=== PATIENT | female | born 1940 | race Caucasian/White ===

== ENCOUNTER → 2022-05-07 01:40 | Outpatient (CLI) | payer MEDICARE, SELFPAY ==
--- NOTE | 2022-05-07 | DI.CT_ITS ---
Exam(s) CT CHEST WO EXAM: CT CHEST WO CLINICAL HISTORY: SCREENING FOR LUNG CA,M SMOKER, F17.200 TECHNIQUE: Imaging Protocol: Axial computed tomography images with coronal and sagittal reformatted images were created and reviewed COMPARISON: No exams were available for comparison FINDINGS: Tracheobronchial tree: Patent where visualized. Pulmonary parenchyma: No consolidation or dominant measurable mass. Parenchymal scarring is seen in t he lung bases bilaterally. Lung Nodules: None. Mediastinum and [place]: No dominant adenopathy or fluid collection. The esophagus is unremarkable. Thyroid gland: Unremarkable. Lymph nodes: Unremarkable. Pleura: No effusion or pneumothorax. Heart: The heart is not dilated. There is moderate coronary artery calcification. Calcification of b oth the mitral and aortic valves are noted. No pericardial effusion. Aorta: Thoracic aorta non-dilated.Atherosclerosis is present. Upper abdomen: Unremarkable. Soft Tissues: Mild bilateral gynecomastia. Bones: Within normal limits. There are old compression deformities at L1 and T9. Findings suggesting vertebroplasty are noted. Sternal wires are in place. IMPRESSION: No pulmonary nodules. Lung RADS Cat 1 - Negative: No nodules and definitely benign nodules Lung-RADS 1.0 CATEGORIES: Category 0 - Prior chest CT exam(s) being located for comparison. Category 1 - Annual screening in 12 months. No nodules or definitely benign nodules. Category 2 - Annual screening in 12 months. Benign appearance. Nodules with low likelihood of becomin g active cancer. Category 3 - 6-month follow-up. Probably benign. Short-term follow-up suggested. Nodules with low lik elihood of becoming active cancer. Category 4A - 3-month follow-up and CT/PET if >8 mm in size. Suspicious finding. Findings which requi re additional testing. Category 4B - Findings which require additional testing and tissue sampling. Suspicious finding. Category 4X - Category 3 or 4 nodules with additional features or imaging findings that increases the suspicion of malignancy. Modifier S- Potentially clinically significant finding. (Non lung cancer) RADIATION DOSE DELIVERED: 77.67mGy.cm Total DLP 1.84mGyCTDIvol 77.67mGy.cm Total DLP DATA REPOSITORY: All CT scans at this facility are submitted to the National Radiology Data Registry (NRDR) Dose Index Registry (DIR) with the [employer] (ACR). RADIATION OPTIMIZATION: All CT scans at this facility use at least one of these dose optimization te chniques: automated exposure control; mA and/or kV adjustment per patient size (includes targeted exa ms where dose is matched to clinical indication); or iterative reconstruction.
== END ==
PROVIDERS: PCP Family Medicine; Visit Provider Family Medicine
DX: Z12.2 Encounter for screening for malignant neoplasm of respiratory organs (principal); F17.200 Nicotine dependence, unspecified, uncomplicated
CPT/HCPCS: 71250

== ENCOUNTER 2022-05-15 08:07 | Emergency (ER) | payer MEDICARE, SELFPAY ==
[2022-05-15] VITALS (17 sets, daily range): BP systolic 111–125; BP diastolic 69–100; PULSE 100–134; RESP 13–26; TEMP 36; O2SAT 86–96
--- NOTE | 2022-05-15 08:00 | RT.EKG_ITS ---
APPROVED REPORT Exam: Resting ECG Reason for Exam: leg pain/no pulse Patient Location: E HR:114 bpm ECG Measurements Heart Rate 114 AXIS NH [id number] P [id number] QRSd 120 QRS -47 QT 371 T 98 QTc 512 Conclusion Atrial fibrillation...V-rate 89-123, irreg A-activity Incomplete left bundle branch block...QRSd>110mS, terminal axis(-90,-1) LVH with secondary repolarization abnormality...multi-LVH criteria, abnrm ST-T a fib, left axis
--- NOTE | 2022-05-15 08:15 | DI.RAD_ITS ---
Exam(s) XR PORTABLE CHEST AP EXAM: XR PORTABLE CHEST AP CLINICAL HISTORY: afib, pulseless extremity TECHNIQUE: 2D digital imaging was performed. COMPARISON: CT CT CHEST WO from 05/07/[address] ABD AORTA CTA W RUNOFF from 05/15/2022 FINDINGS: The heart is enlarged. Sternal wires are noted. The aorta is normal in diameter and shows calcifica tion. Patient is status post CABG. There is some vascular prominence and peribronchial thickening, this appears stable when compared with prior chest CT. There is an element of underlying pulmonary fi brosis, however superimposed mild pulmonary edema is not excluded. No focal infiltrate or effusion. IMPRESSION: Cardiomegaly and pulmonary fibrosis. Mild pulmonary edema not excluded. DATA REPOSITORY: RADIATION DOSE DELIVERED:
--- NOTE | 2022-05-15 08:15 | DI.CT_ITS ---
Exam(s) CT ABD AORTA CTA W RUNOFF EXAM: CT ABD AORTA CTA W RUNOFF CLINICAL HISTORY: Pulseless left lower leg, back pain. TECHNIQUE: Imaging Protocol: Axial CT angiography was performed with multi-slice acquisition and mu lti-planar and/or 3D reconstructions. CONTRAST MATERIAL: Intravenous: Omnipaque 350 Contrast volume:130 ml contrast route:IV - Oral: no COMPARISON: CT CT CHEST WO from 05/07/2022 FINDINGS: Vascular Structures: There is left atrial and left ventricular enlargement. Mitral valve calcificati on is seen. Abdomen: Celiac [place]/SMA: No evidence of stenosis. Renal Arteries: No evidence of stenosis. : Aorta: Irregular atherosclerotic calcification and plaque. No significant luminal narrowing. No ane urysm. No dissection. Pelvis: Iliac Arteries: Significant atherosclerotic plaque with mild narrowing. Lower extremities: Right common femoral and femoral arteries: Mild stenosis.Knee Trifurcation: Irregular plaque with mi ld stenosis. Calf: Irregular atherosclerotic plaque with mild stenosis. Left: occlusion at the proximal common femoral artery to the bifurcation, over a 5-6 centimeter lengt h. Reconstituted distally but with reduced diameter throughout the extent of the femoral artery as we ll as popliteal artery secondary to irregular calcific and non is calcific atherosclerotic plaque. S ignificant narrowing is also seen of the arteries of the calf with very little flow distally.. Soft Tissues: Lung bases: Right-sided basilar pleural thickening. Emphysematous changes. Liver: Normal density. No measurable mass. Gallbladder and biliary tract: No radiodense calculus or dilation. Pancreas: Normal density, no abnormal calcifications or inflammatory process. Spleen: Normal. Kidneys: Normal size, contour and axis. No radiodense stones or obstructive uropathy. No masses seen. Cyst upper pole right kidney. Adrenal glands: No masses seen. Bladder: Clpb-ut-hxvokzqo wall thickening. Bowel: No obstruction or bowel wall thickening. Peritoneal cavity: No ascites, collection or mesenteric inflammatory response. Prostate: Mildly enlar ged with calcifications. Bones: High-density material within the T9 vertebral body, partially included in the field of view se condary to vertebroplasty. Severe compression fracture of L1 with high-density material consistent w ith prior vertebroplasty. Moderate compression, proximally 50 percent of the L4 vertebral body. 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 Severe atherosclerotic changes involving the left lower extremity vessels with very little fl ow seen distal to the trifurcation. Results of this exam have been verbally communicated with emergency department provider. RADIATION DOSE DELIVERED: 1,519.67mGy.cm Total DLP DATA REPOSITORY: All CT scans at this facility are submitted to the National Radiology Data Registry (NRDR) Dose Index Registry (DIR) with the [employer] (ACR). RADIATION OPTIMIZATION: All CT scans at this facility use at least one of these dose optimization te chniques: automated exposure control; mA and/or kV adjustment per patient size (includes targeted exa ms where dose is matched to clinical indication); or iterative reconstruction.
[2022-05-15] MEDS: fentaNYL 100 MCG/2 ML VIAL 50 MCG IVP (08:23)
[2022-05-15] MEDS: Normal Saline 1,000 ML 1000 ML IV (08:24)
--- NOTE | 2022-05-15 08:24 | W.ED.GENAD ---
Discharge Plan Disposition Patient Disposition: [facility] Condition: Serious Discharge Details Clinical Impression: Femoral artery occlusion, left, A-fib Primary Care Provider: Bobby Das ED Provider: Christopher Carter Home Meds and New Rx's Prescriptions: No Action tamsulosin 0.4 mg capsule PO 1XD Label Comments: TAKE ONE CAPSULE BY MOUTH AT BEDTIME rosuvastatin 40 mg tablet PO 1XD Label Comments: TAKE ONE TABLET BY MOUTH EVERY DAY Medical Decision Making This is a 81-year-old gentleman with a history of mitral valve repair, hyperlipidemia, BPH presenting for sudden severe left leg pain that began around 630 this morning. Examination is most consistent and concerning for thrombus, ischemic leg, but concern for dissection as well. Case was immediately discussed with Dr. Conte. Will initiate cardiac work-up including coags, give IV fluid as well as 50 fentanyl, obtain CTA of his thorax, abdomen, pelvis, left lower extremity. Patient is in A. fib, no history of such. Appears otherwise hemodynamically stable. His later tells me that he did have a right arm embolism back in 2000 soon after his mitral valve repair. The CT reveals Severe atherosclerotic changes with occlusion of the left common femoral artery over 5-6 centimeter length. Severe atherosclerotic changes involving the left lower extremity vessels with very little flow seen distal to the trifurcation. We will initiate a heparin bolus and drip. Images were pushed to [facility] and I received a call back regarding a transfer at [phone] stating that [facility] is at capacity but they could consult I then spoke with [facility] at [phone], they are at capacity and cannot accept transfer, will not consult as there is already a consult at [facility] I was then told [facility] is also at capacity. I received a call from vascular surgery at [phone], Dr. Bermudez, who agrees that the patient needs emergent intervention, thrombectomy, and will be happy to care for the patient if bed availability is present. He believes the heparin is appropriate and does not recommend any additional medication. I then received a call back from the [facility] transfer line at [phone] stating that patient could in fact be transferred to their facility ER to ER This plan was discussed both with patient as well as his family. He did not require any additional fentanyl. At time of transfer his leg is still pulseless. This documentation was generated using [employer] system, please disregard any oddities of phrase or misspellings. Medical Records Medical records reviewed: Yes I reviewed the patient's medical records. Imaging Data Radiologic Study: Attestation: I personally reviewed and interpreted this imaging study as follows: Imaging: CT Scan Radiologist's impression: Exam(s) CT ABD AORTA CTA W RUNOFF EXAM: CT ABD AORTA CTA W RUNOFF CLINICAL HISTORY: Pulseless left lower leg, back pain. TECHNIQUE: Imaging Protocol: Axial CT angiography was performed with multi-slice acquisition and multi-planar and/or 3D reconstructions. CONTRAST MATERIAL: Intravenous: Omnipaque 350 Contrast volume:130 ml contrast route:IV - Oral: no COMPARISON: CT CT CHEST WO from 05/07/2022 FINDINGS: Vascular Structures: There is left atrial and left ventricular enlargement. Mitral valve calcification is seen. Abdomen: Celiac [place]/SMA: No evidence of stenosis. Renal Arteries: No evidence of stenosis. : Aorta: Irregular atherosclerotic calcification and plaque. No significant luminal narrowing. No aneurysm. No dissection. Pelvis: Iliac Arteries: Significant atherosclerotic plaque with mild narrowing. Lower extremities: Right common femoral and femoral arteries: Mild stenosis.Knee Trifurcation: Irregular plaque with mild stenosis. Calf: Irregular atherosclerotic plaque with mild stenosis. Left: occlusion at the proximal common femoral artery to the bifurcation, over a 5-6 centimeter length. Reconstituted distally but with reduced diameter throughout the extent of the femoral artery as well as popliteal artery secondary to irregular calcific and non is calcific atherosclerotic plaque. Significant narrowing is also seen of the arteries of the calf with very little flow distally.. Soft Tissues: Lung bases: Right-sided basilar pleural thickening. Emphysematous changes. Liver: Normal density. No measurable mass. Gallbladder and biliary tract: No radiodense calculus or dilation. Pancreas: Normal density, no abnormal calcifications or inflammatory process. Spleen: Normal. Kidneys: Normal size, contour and axis. No radiodense stones or obstructive uropathy. No masses seen. Cyst upper pole right kidney. Adrenal glands: No masses seen. Bladder: Vdly-zq-xiacuiml wall thickening. Bowel: No obstruction or bowel wall thickening. Peritoneal cavity: No ascites, collection or mesenteric inflammatory response. Prostate: Mildly enlarged with calcifications. Bones: High-density material within the T9 vertebral body, partially included in the field of view secondary to vertebroplasty. Severe compression fracture of L1 with high-density material consistent with prior vertebroplasty. Moderate compression, proximally 50 percent of the L4 vertebral body. 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 Severe atherosclerotic changes involving the left lower extremity vessels with very little flow seen distal to the trifurcation. Results of this exam have been verbally communicated with emergency department provider. Radiologic Study #2: Attestation: I personally reviewed and interpreted this imaging study as follows: Imaging: X-Ray Radiologist's impression: Chest, nothing acute Lab Data Lab results reviewed: Yes I reviewed the patient's lab results. Labs: Laboratory Tests Range/Units 05/15/22 05/15/22 05/15/22 08:20 08:20 08:20 WBC (4.4-10.8) 10^3/uL 7.69 RBC (3.93-5.22) 10^6/uL 4.52 Hgb (11.2-15.7) g/dL 14.5 Hct (36.0-46.0) % 43.3 MCV (80-95) fL 96 H MCH (27.0-33.0) pg 32.1 MCHC (32.0-36.0) % 33.5 RDW (11.7-14.6) % 12.9 Plt Count (130-400) 10^3/uL 197 MPV (8.0-11.0) fL 10.1 Immature Gran % 0.5 Neutrophils % 58.9 Lymphocytes % 27.8 Monocytes % 9.8 Eosinophils % 2.3 Basophils % 0.7 Nucleated RBC % (0.0-0.3) % 0.0 Absolute Neutrophils (1.2-6.7) 10^3/uL 4.53 Absolute Lymphocytes (1.2-3.4) 10^3/uL 2.14 Absolute Monocytes (0.1-0.8) 10^3/uL 0.75 Absolute Eosinophils (0.0-0.7) 10^3/uL 0.18 Absolute Basophils (0.0-0.2) 10^3/uL 0.05 PT (9.3-11.0) sec 10.4 INR (0.9-1.1) 1.0 APTT (21.0-27.5) sec 22.8 D-Dimer (<500) ng/mlFEU 1383 H Sodium (136-145) mmol/L 140 Potassium (3.5-5.1) mmol/L 3.9 Chloride (98-107) mmol/L 103 Carbon Dioxide (21.0-32.0) mmol/L 23.5 Anion Gap (3-11) mmol/L 13.5 H BUN (7-18) mg/dL 21 H Creatinine (0.55-1.02) mg/dL 1.0 Estimated GFR/1.73 m2 (mL/min/1.73m2) 53.48 Glucose (74-106) mg/dL 210 H Calcium (8.5-10.1) mg/dL 8.6 Magnesium (1.8-2.4) mg/dL 1.9 Total Bilirubin (0.2-1.0) mg/dL 0.8 AST (15-37) U/L 16 ALT (14-59) U/L 26 Alkaline Phosphatase (46-116) U/L 85 Troponin I (<or=60) ng/L < 50 Total Protein (6.4-8.2) g/dL 7.7 Albumin (3.4-5.0) g/dL 3.9 COVID-19 Source Range/Units 05/15/22 09:20 WBC (4.4-10.8) 10^3/uL RBC (3.93-5.22) 10^6/uL Hgb (11.2-15.7) g/dL Hct (36.0-46.0) % MCV (80-95) fL MCH (27.0-33.0) pg MCHC (32.0-36.0) % RDW (11.7-14.6) % Plt Count (130-400) 10^3/uL MPV (8.0-11.0) fL Immature Gran % Neutrophils % Lymphocytes % Monocytes % Eosinophils % Basophils % Nucleated RBC % (0.0-0.3) % Absolute Neutrophils (1.2-6.7) 10^3/uL Absolute Lymphocytes (1.2-3.4) 10^3/uL Absolute Monocytes (0.1-0.8) 10^3/uL Absolute Eosinophils (0.0-0.7) 10^3/uL Absolute Basophils (0.0-0.2) 10^3/uL PT (9.3-11.0) sec INR (0.9-1.1) APTT (21.0-27.5) sec D-Dimer (<500) ng/mlFEU Sodium (136-145) mmol/L Potassium (3.5-5.1) mmol/L Chloride (98-107) mmol/L Carbon Dioxide (21.0-32.0) mmol/L Anion Gap (3-11) mmol/L BUN (7-18) mg/dL Creatinine (0.55-1.02) mg/dL Estimated GFR/1.73 m2 (mL/min/1.73m2) Glucose (74-106) mg/dL Calcium (8.5-10.1) mg/dL Magnesium (1.8-2.4) mg/dL Total Bilirubin (0.2-1.0) mg/dL AST (15-37) U/L ALT (14-59) U/L Alkaline Phosphatase (46-116) U/L Troponin I (<or=60) ng/L Total Protein (6.4-8.2) g/dL Albumin (3.4-5.0) g/dL COVID-19 Source Nasal/Nares ECG Data Attestation: I personally reviewed and interpreted this ECG (s) as follows: Interpretation: Please see official report by Geneva Strickland fib, ventricular rate of 114, incomplete left bundle branch block. HPI General Mode of arrival: EMS. Date/Time Provider Initiated Documentation: 05/15/22 08:16. Limitations to Documentation: no limitations. Information obtained by: patient and EMS. HPI Narrative: This is a 81-year-old gentleman, past medical history of hyperlipidemia, BPH, mitral valve repair, presenting the ER via EMS for severe or sudden left leg pain that began suddenly around 630 this morning while in bed. He denies any trauma. Patient describes the sensation as sharp, he felt what he describes as a sensation of needles go down his groin and now complains of pain in his entire lower leg, decreased sensation below the knee, and lower back pain. He denies recent illness, headache, chest pain, shortness of breath, rapid heart rate, abdominal pain, nausea, vomiting, change in bowel or bladder function, history of DVT, PE, dissection, anticoagulation. Patient declined any medications from EMS in route to the ER. On monitor it appears as though he is in A. fib, denies history of A. fib. Related Data Home Medications Medication Instructions Recorded Confirmed rosuvastatin 40 mg tablet tab PO 1XD 05/15/22 tamsulosin 0.4 mg capsule cap PO 1XD 05/15/22 Allergies Allergy/AdvReac Type Severity Reaction Status Date / Time No Known Allergies Allergy Unverified 05/15/22 08:19 General Stated Complaint: Vascular MÓNICA: 2 Review of Systems Constitutional Constitutional: Denies fatigue, Denies fever(s), Denies headache(s) and Reports weakness Eyes Eyes: Denies change in vision ENT Ears, Nose, Mouth, and Throat: Denies headache(s) and Denies neck pain Cardiovascular Cardiovascular: Denies chest pain and Denies dyspnea Respiratory Respiratory: Denies cough and Denies dyspnea Gastrointestinal Gastrointestinal: Denies abdominal pain, Denies nausea and Denies vomiting Musculoskeletal Musculoskeletal: Reports back pain, Denies neck pain, Reports numbness, Denies stiffness and Denies tingling Integumentary/Breasts Skin/Breast: Denies rash Neurologic Neurologic: Denies headache(s), Reports numbness, Denies tingling and Reports weakness Endocrine Endocrine: Denies fatigue Hematologic/Lymphatic Hematologic/Lymphatic: Denies easy bleeding and Denies easy bruising PFSH All Active Problems (Updated 05/15/22 @ 10:17 by JOSEE Kent) Femoral artery occlusion, left (Acute) A-fib (Chronic) Social History Smoking/Tobacco Use Status: Current every day Tobacco Type: cigarettes Tobacco: How many years used: 62 Smoking risk assessment performed?: Yes Alcohol Intake: current Alcohol Intake frequency: 3 or more drinks per day Alcohol type: beer Drug use: Never Substance use type: does not use Do you feel safe at home: Yes Do you feel safe in your relationship?: Yes Exam Const General: cooperative, healthy appearing and in distress Orientation: alert, awake and oriented x3 HENMT Head: normal to inspection, normocephalic and atraumatic Face and sinus: normal facial exam Mouth: moist mucous membranes Eyes General: appearance normal, both eyes and all related structures Conjunctivae: conjunctivae normal Neck Neck: normal visual inspection, full ROM, trachea midline and supple Resp Effort & Inspection: normal respiratory effort and able to speak in complete sentences Auscultation: clear to auscultation bilaterally Cardio Rate: tachycardic (108) Rhythm: abnormal rhythm irregularly irregular GI Inspection: normal to inspection Palpation: soft, not firm, no guarding, no pulsatile masses and nontender Auscultation: normal bowel sounds Back/Spine/Pelvis Back: no CVA tenderness and back tenderness (Mild lumbar region) Skin General skin exam: no rashes or lesions noted Neuro General: patient alert, patient awake, patient oriented x3, moves all extremities and no focal motor deficits Cognition: normal cognition Speech: speech normal Other: Decreased sensation of the left foot Extrem Other: Bilateral upper extremities and right lower extremity unremarkable. Left lower extremity without pedal or popliteal pulse both by palpation and Doppler. I am able to appreciate a very faint-week left femoral pulse. The entire left leg feels slightly cool to the touch when compared to the right leg and appears dusky in nature. Poor capillary refill. There is diffuse discomfort of the entire left lower leg. Skin is intact. Psych Appearance: grossly normal Mental Status: mental status grossly normal Course Vital Signs Vital signs: Vital Signs Temperature 36.0 C L 05/15/22 08:02 Pulse 118 H 05/15/22 08:02 Respiratory Rate 26 H 05/15/22 08:02 Blood Pressure 118/85 05/15/22 08:02 Pulse Oximetry 96 05/15/22 08:02 Temperature 36.0 C L 05/15/22 08:02 Temperature Source Tympanic 05/15/22 08:02 Pulse 118 H 05/15/22 08:02 Respiratory Rate 26 H 05/15/22 08:02 Blood Pressure 118/85 05/15/22 08:02 Blood Pressure Position Supine 05/15/22 08:02 Pulse Oximetry 96 05/15/22 08:02 Oxygen Delivery Method Room Air 05/15/22 08:02 Oxygen Flow Rate 0 05/15/22 08:02 Pain Level 10 05/15/22 08:02 Critical Care Time Critical Care Time Critical Care Time: Yes Total Critical Care Time: 45 Attestation: Upon my evaluation, this patient had a high probability of clinically significant, life-threatening deterioration due to their current medical conditions, which required my direct attention, intervention, and personal management. I have personally provided greater than 30 minutes of critical care time exclusive of the time spend on separately billable procedures. Time includes obtaining a history, examining the patient, pulse oximetry, review of laboratory data, radiology results, discussion with consultants, arranging urgent treatment with development of a management plan, evaluation of patient's response to treatment, and monitoring for potential decompensation. Interventions were performed as documented above.
[2022-05-15 08:39] LABS: Abs Immature Grans 0.04 10^3/uL (0.0-0.06); Absolute Basophil Count 0.05 10^3/uL (0.0-0.2); Absolute Eosinophil Count 0.18 10^3/uL (0.0-0.7); Absolute Lymphocyte Count 2.14 10^3/uL (1.2-3.4); Absolute Monocyte Count 0.75 10^3/uL (0.1-0.8); Absolute Neutrophil Count 4.53 10^3/uL (1.2-6.7); Basophils % 0.7; Eosinophils % 2.3; HCT 43.3 % (36.0-46.0); HGB 14.5 g/dL (11.2-15.7); Immature Grans % 0.5; Lymphocytes % 27.8; MCH 32.1 pg (27.0-33.0); MCHC 33.5 % (32.0-36.0); MCV 96 fL (80-95); MPV 10.1 fL (8.0-11.0); Monocytes % 9.8; Neutrophils % 58.9; Platelet Count 197 10^3/uL (130-400); RBC 4.52 10^6/uL (3.93-5.22); RDW 12.9 % (11.7-14.6); RDW-SD 45.7 fL; WBC 7.69 10^3/uL (4.4-10.8)
[2022-05-15 08:51] LABS: PTT Activated 22.8 sec (21.0-27.5); Prothrombin Time 10.4 sec (9.3-11.0)
[2022-05-15 08:59] LABS: ALT 26 U/L (14-59); AST 16 U/L (15-37); Albumin 3.9 g/dL (3.4-5.0); Alkaline Phosphatase 85 U/L (46-116); Anion Gap 13.5 mmol/L (3-11); BUN 21 mg/dL (7-18); Bilirubin, Total 0.8 mg/dL (0.2-1.0); CO2 23.5 mmol/L (21.0-32.0); Calcium 8.6 mg/dL (8.5-10.1); Chloride 103 mmol/L (98-107); Estimated GFR 53.48 (mL/min/1.73m2); Glucose 210 mg/dL (74-106); Magnesium 1.9 mg/dL (1.8-2.4); Potassium 3.9 mmol/L (3.5-5.1); Sodium 140 mmol/L (136-145); Total Protein 7.7 g/dL (6.4-8.2); Troponin I < 50 ng/L (<or=60)
[2022-05-15] MEDS: Omnipaque 350 MG/ML 100 ML BTL IJ (08:59)
[2022-05-15] MEDS: Normal Saline Flush 10 ML SYR IVP (09:01)
[2022-05-15 09:16] LABS: D-Dimer 1383 ng/mlFEU (<500)
[2022-05-15 09:29] LABS: Source Nasal/Nares
--- NOTE | 2022-05-15 10:08 | NUR.NOTE ---
Nursing Note: Medications confirmed, system will not allow nurse to click confirmation.
[2022-05-15 10:23] LABS: COVID-19 PCR Negative (Negative)
== END 2022-05-15 10:28 | disposition short-term general hospital (02) ==
PROVIDERS: Emergency Provider Physician Assistant; PCP Family Medicine
DX: I70.292 Other atherosclerosis of native arteries of extremities, left leg (principal); I48.91 Unspecified atrial fibrillation; M54.9 Dorsalgia, unspecified; Z79.899 Other long term (current) drug therapy; Z20.822 Contact with and (suspected) exposure to COVID-19
CPT/HCPCS: 36415; 75635; 80053; 87635; 93005; 96361; 96365; 96375; 96376; 99291; 71045; 83735; 84484; 85025; 85379; 85610; 85730; 93010; J3010; J3490

== ENCOUNTER 2022-06-23 00:03 | Inpatient (IN) | payer MEDICARE, SELFPAY ==
[2022-06-23] VITALS (31 sets, daily range): BP systolic 88–144; BP diastolic 43–78; PULSE 67–98; RESP 10–28; TEMP 36–37; O2SAT 91–100
--- OUTSIDE RECORDS SUMMARY | 2022-06-23 00:16 | XMS_ITS | Encounter Summary ---
:1940 [place] [address] Care Team Providers Name Role Phone Bobby Das MD Primary Care Provider Encounter Details Date Type Department Care Team Description 06/13/2022 Tech Visit Vascular Lab at [facility], [place]ing[place] [address] Social History Tobacco Use Types Packs/Day Years Used Date Former Smoker Cigarettes 0.5 50 Smokeless Tobacco: Never Used Alcohol Use Standard Drinks/Week Comments Yes 42 (1 standard drink = 0.6 oz pure alcoh ol) Sex Assigned at Date Recorded Not on file documented as of this encounter Plan of Treatment Upcoming Encounters Date Type Specialty Care Team Description 07/02/2022 Office Visit Vascular Surgery Jing Ghosh APRN [facility] DR VASCULAR SURGERY [place], [place] [address] (Wo rk) 09/02/2022 Clinical Support Dermatology Thai Lynn MD [facility] DR JENNY BILLY-DERMAT [place], [place] [address] (Wo rk) 09/02/2022 Procedure visit Dermatology Jace Lynn MD [facility] DR JENNY BILLY-DERMAT [place], [place] [address] (Rebekah rojas) 09/05/2022 Appointment Cardiology Trinity Reid MD [facility] DR CARDIOLOGY [place], [place] [address] (Wo rk) 09/05/2022 Office Visit Cardiology Trinity Reid MD [facility] ER CARDIOLOGY [place], [place] [address] (Wo rk) documented as of this encounter Procedures Procedure Name Priority Date/Time Associated Diagnosis Comme nts JOSSELYN, LEGS, MULTIPLE Routine 06/13/2022 7:13 AM Limb ischemia R esults for this LEVELS EDT procedure are i n the results section. documented in this encounter Results JOSSELYN, legs, multiple levels (06/13/2022 7:13 AM EDT) Component Value Ref Test Analysis Performed At [facility] Range Method Time Signature VB Text Department: Vascular Surgery Lab [facility] Report Patient: [id number] (ETTA BAH) CPT: 71529 Referring Physician: FITO SUMMERS ?? 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 Diabetes mellitus: no Findings: Right ?Pressure (mm Hg) ?? JOSSELYN ??Waveform ?? Brachial Artery ?90 ? Common Femoral Artery ?Triphasic ?? Popliteal Artery ? Triphasic ?? Dorsalis Pedis (Ankle) Arter y ?102 ? 1.13 ??Triphasic ?? Posterior Tibial (Ankle) Artery ??110 ? 1.22 ??Triphasic ?? Left ? Pressure (mm Hg) ?? JOSSELYN ??Waveform ?? Brachial Artery ?61 ? Common Femoral Artery ?Triphasic ?? Popliteal Artery ? Triphasic ?? Dorsalis Pedis (Ankle) Arter y ?94 ?1.04 ??Triphasic ?? Posterior Tibial (Ankle) Artery ??104 ? 1.16 ??Triphasic ?? Interpretation: RIGHT: No significant lower extremity arterial o cclusive disease identifiable at rest. Normal ankle/brachial pressure ratios and ankle D oppler waveforms. LEFT: No significant lower e xtremity arterial occlusive disease identifiable at rest. Normal ankle/brachial pressure ratios and ankle Dopple r waveforms. Comparison: ??No previous study in our vascular lab da tabase for comparison. Electronically Signed by: FITO SUMMERS on 2022-06-13 08:00: 25 AM VB Text End of Report [facility]AS[facility] Report Specimen (Source) Anatomical Collection Method Collection Time Re ceived Time Location / / Volume Laterality 06/13/2022 7:13 AM EDT Fito Summers MD VASCULAR ORDERABLES Performing Organization Address City/State/ZIP Code Phon e Number V[facility] documented in this encounter Visit Diagnoses Diagnosis Limb ischemia Unspecified circulatory system disorder documented in this encounter Care Teams Lead Cashier Relationship Specialty Start Date End Date Bobby Das MD PCP - General 10/02/[address] [place] [address] [place] [id number] documented as of this encounter
--- OUTSIDE RECORDS SUMMARY | 2022-06-23 00:16 | XMS_ITS | Encounter Summary ---
:1940 [place] [address] Care Team Providers Name Role Phone Bobby Das MD Primary Care Provider Encounter Details Date Type Department Care Team Description 06/13/2022 Office Visit Vascular Surgery at [facility] Fito Summers MD Limb ischemia [facility] [place] [phone] VASCULAR SURGERY [phone] [place] [id number] (Wo rk) Social History Tobacco Use Types Packs/Day Years Used Date Former Smoker Cigarettes 0.5 50 Smokeless Tobacco: Never Used Alcohol Use Standard Drinks/Week Comments Yes 42 (1 standard drink = 0.6 oz pure alcoh ol) Sex Assigned at Date Recorded Not on file documented as of this encounter Last Filed Vital Signs Vital Sign Reading Time Taken Comments Blood Pressure 90/59 06/13/2022 8:09 AM EDT notifi ed Pulse 96 06/13/2022 8:09 AM EDT Temperature - - Respiratory Rate - - Oxygen Saturation 99% 06/13/2022 8:09 AM EDT Inhaled Oxygen Concentration - - Weight 75.8 kg (167 lb) 06/13/2022 8:09 AM EDT patient reported Height 172.7 cm (5' 8) 06/13/2022 8:09 AM EDT patient reported Body Mass Index 25.39 06/13/2022 8:09 AM EDT documented in this encounter Progress Notes Fito Summers MD - 06/13/2022 8:00 AM EDT Vascular Surgery Follow up Visit CC: Follow up 05/15/22: Left common femoral transverse arteriotomy and primary repair Thromboembolectomy of the right common and external iliac artery Thromboembolectomy of the SFA, profunda, and common femoral artery Reperfusion venous drainage of 250cc Left lower extremity 4 compartment fasciotomies?? Interval history: Mr. Zamora returns for scheduled follow up. In the interim he had a GI bleed requiring admission and transfusion. EGD revealed angiodysplasia which was cauterized. His aspirin was stopped. His plavix and rivaroxaban were maintained. He has done well since. He has no claudication or rest pain. He has some LLE swelling. He had ABIs before this visit. Review of Systems: 10 point review of systems negative except as noted Problem List: Patient Active Problem List Diagnosis ??? Limb ischemia ??? History of basal cell carcinoma ??? Basal cell carcinoma ??? Verruca vulgaris ??? AK (actinic keratosis) ??? GIB (gastrointestinal bleeding) Overview Note: Secondary to 3-4 ASA/day, required admission and blood transfusion ??? MVP (mitral valve prolapse) s/p repair Overview Note: Surgery done at [facility] 2000 ??? Hypertriglyceridemia Overview Note: ??? Adhesive capsulitis of L shoulder ??? Alcohol use Overview Note: Home Medications: Antiplatelet: Plavix Anticoagulant: Rivaroxaban Statin: Crestor Outpatient Medications Marked as Taking for the 06/13/22 encounter (Office Visit) with Fito Summers MD Medication Sig Dispense Refill ??? acetaminophen (Tylenol) 325 mg Tablet Take 2 tablets by mouth every 6 hours as needed for Pain. 30 tablet 1 ??? clopidogreL (Plavix) 75 mg Tablet Take 1 tablet by mouth daily. 90 tablet 3 ??? metoprolol succinate XL (Toprol-XL) 50 mg Tablet Sustained Release 24 hr Take 1 tablet by mouth daily. 30 tablet 12 ??? dapagliflozin (Farxiga) 5 mg Tablet Take 1 tablet by mouth daily. 30 tablet 0 ??? pantoprazole EC (Protonix) 40 mg Tablet, Delayed Release (E.C.) Take 1 tablet by mouth daily. 90tablet 3 ??? rivaroxaban (Xarelto) 20 mg Tablet Take 1 tablet by mouth daily. 30 tablet 11 ??? ascorbic acid, vitamin C, (VITAMIN C) 1,000 mg Tablet Take 1,000 mg by mouth daily. ??? sildenafiL (VIAGRA) 100 mg Tablet Take 100 mg by mouth as needed for Erectile Dysfunction. ??? carboxymethylcellulose (REFRESH PLUS) 0.5 % Dropperette Apply to eye 3 times daily as needed. ??? calcium citrate (CALCITRATE) 200 mg (950 mg) Tablet Take 1 tablet by mouth daily. ??? tamsulosin (FLOMAX) 0.4 mg Capsule Take 0.4 mg by mouth daily. ??? CRESTOR 40 mg Tablet Take 40 mg by mouth daily. ??? MULTIVITAMIN (MULTIPLE VITAMIN ORAL) Take 1 tablet by mouth daily. Physical Exam: Temp: -- Heart Rate: [96] Resp: -- BP: (90)/(59) SpO2: [99 %] Heart Rate from SpO2: -- General: NAD, resting comfortably CVS: Regular rate Pulm: Normal work of breathing on room air GI: Abdomen soft, non tender, non distended Vasc: LLE: Groin incision nearly healed, fasciotomy sites healed with stapes in place. 2/2 DP pulse. Neuro: CN 2-12 grossly intact, nonfocal, moving all extremities. Studies: ABIs today: Findings: ?? Right ?Pressure (mm Hg) ?? JOSSELYN ??Waveform ?? Brachial Artery ?90 ? Common Femoral Artery ?Triphasic ?? Popliteal Artery ? Triphasic ?? Dorsalis Pedis (Ankle) Artery ?102 ? 1.13 ??Triphasic ?? Posterior Tibial (Ankle) Artery ??110 ? 1.22 ??Triphasic ? Left ? Pressure (mm Hg) ?? JOSSELYN ??Waveform ?? Brachial Artery ?61 ? Common Femoral Artery ?Triphasic ?? Popliteal Artery ? Triphasic ?? Dorsalis Pedis (Ankle) Artery ?94 ?1.04 ??Triphasic ?? Posterior Tibial (Ankle) Artery ??104 ? 1.16 ??Triphasic ? Interpretation: ?? RIGHT: No significant lower extremity arterial occlusive disease identifiable at rest. Normal ankle/brachial pressure ratios and ankle Doppler waveforms. ?? LEFT: No significant lower extremity arterial occlusive disease identifiable at rest. Normal ankle/brachial pressure ratios and ankle Doppler waveforms. Assessment and Plan: 81 y.o. male non diabetic smoker now 1 month post LLE thromboembolectomy and fasciotomies for ALI secondary to LLE embolism, presumed from atrial fibrillation. He is doing well and has normal ABIs with a palpable DP pulse. His wounds are nearly healed. We are removing his fasciotomy windy today and will plan on him returning in 2 weeks for a wound check. Ifhealed, he can then follow up annually with ABIs. He will be seeing cardiology after this visit. He underwent coronary stenting recently and is on Plavix / Rivaroxaban. He had his aspirin stopped due to a GI bleed in the past couple of weeks, where anEGD revealed angiodysplasia and two area were cauterized. Thankfully he has had no further bleeding. From the lower extremity perspective, I would like him to be on an antiplatelet agent and anticoagulation indefinitely. I will defer to cardiology as to which antiplatelet agent this should be, either aspirin or Plavix is fine from my standpoint. I will also defer Rx of his long-term anticoagulation to either cardiology or his PCP given the indication of atrial fibrillation. Follow up 2 weeks wound check. If healed, follow up 1 year with ABIs. Fito Summers MD Vascular Surgery [facility] Emily Power CMA - 06/13/2022 8:00 AM EDT Handwashing performed, gloves on.As instructed by windy removed on LLE medial and lateral aspect, cleansed after staple remover, steri strips applied. Gloves off, handwashing performed. documented in this encounter Plan of Treatment Upcoming Encounters Date Type Specialty Care Team Description 07/02/2022 Office Visit Vascular Surgery Jing Ghosh APRN [facility] VASCULAR SURGERY [place], [place] [address] (Wo rk) 09/02/2022 Clinical Support Dermatology Thai Lynn MD [facility] DR JENNY BILLY-DERMAT [place], [place] [address] (Wo rk) 09/02/2022 Procedure visit Dermatology Jace Lynn MD [facility] DR JENNY BILLY-DERMAT [place], [place] [address] (Wo rk) 09/05/2022 Appointment Cardiology Trinity Reid MD [facility] DR WARNER [place], [place] [address] (Wo rk) 09/05/2022 Office Visit Cardiology Trinity Reid MD [facility] CARDIOLOGY [place], [place] [address] (Wo rk) documented as of this encounter Visit Diagnoses Diagnosis Limb ischemia Unspecified circulatory system disorder documented in this encounter Care Teams Axle And Frame Mechanic Relationship Specialty Start Date End Date Bobby Das MD PCP - General 10/02/[address] [place] [address] [place] [phone] documented as of this encounter
--- OUTSIDE RECORDS SUMMARY | 2022-06-23 00:16 | XMS_ITS | Encounter Summary ---
:1940 [place] [address] Care Team Providers Name Role Phone Bobby Das MD Primary Care Provider Reason for Referral Consultation (Routine) - Authorized Specialty Diagnoses / Procedures Referred By Contact Refer red To Contact Dermatology Diagnoses Basal cell carcinoma (BCC) of right forehead Loretta Cohen MD Leboeuf, Matthew R, MD [facility] [address] [address] [place] [address] Fax: Referral ID Status Reason Start Date Expiration Visits Visits Date Requested Authorized [id number] Authorized Consult, 06/17/2022 06/17/2023 1 1 Test & Treat Encounter Details Date Type Department Care Team Description 06/17/2022 Orders Only Dermatology at [facility] Basal cell carcinoma Nicol CARCAMO (BCC) of right [address] [place] [phone] DERMATOLOGY [place], [place] [address] Social History Tobacco Use Types Packs/Day Years [...] Office Visit Vascular Surgery Jing Ghosh APRN [facility] ER VASCULAR SURGERY [place], [place] [address] (Wo rk) 09/02/2022 Clinical Support Dermatology Thai Lynn MD [facility] DR JENNY BILLY-DERMAT [place], [place] [address] (Wo rk) 09/02/2022 Procedure visit Dermatology Jace Lynn MD [facility] DR JENNY BILLY-DERMAT [place], [place] [address] (Wo rk) 09/05/2022 Appointment Cardiology Trinity Reid MD [facility] CARDIOLOGY [place], [place] [address] (Wo rk) 09/05/2022 Office Visit Cardiology Trinity Reid MD [facility] CARDIOLOGY [place], [place] [address] (Wo rk) Scheduled Referrals Name Type Priority Associated Order Schedule Diagnoses Referral to Outpatient Referral Routine Basal cell Ordered: Dermatology carcinoma (BCC) of 2 right forehead documented as of this encounter Visit Diagnoses Diagnosis Basal cell carcinoma (BCC) of right fore head documented in this encounter Care Teams Shot Examiner Relationship Specialty Start Date End Date Bobby Das MD PCP - General 10/02/[address] [place] [address] [place] [id number] documented as of this encounter
--- OUTSIDE RECORDS SUMMARY | 2022-06-23 00:16 | XMS_ITS | Encounter Summary ---
:1940 Author Organization [facility] [place] [address] Care Team Providers Name Role Phone Bobby Das MD Primary Care Provider Reason for Referral Diagnostic Test (Routine) - Authorized Specialty Diagnoses / Procedures Referred By Contact Refer red To Contact Cardiology Diagnoses HFrEF (heart failure with reduced ejection fraction) Alan Reid MD [facility] Non-Inv Card Lab Procedures [place]ocardi[place] [address] [place] [phone] Fax: Referral ID Status Reason Start Expiration Visits Visits Date Date Requested Authorized [id number] Authorized Specialty 06/13/2022 06/13/2023 1 1 Service Requested Reason for Visit Consultation (Routine) - Closed Specialty Diagnoses / Procedures Referred By Contact Refer red To Contact Cardiology Diagnoses HFrEF (heart failure with reduced ejection fraction) Paroxysmal atrial fibrillation Post-hospital follow-up, s/p PCI with stenting, heart failure Nasrin Parra PA [facility] Cardiology [address] [facility] [place] [address] [place] [address] Referral ID Status Reason Start Date Expiration Date Visits V isits Requested Authorized [id number] Closed Consult, 05/21/2022 05/21/2023 1 1 Test & Treat Encounter Details Date Type Department Care Team Description 06/13/2022 [place] [facility] [place] Coronary artery disease invo lving [place] coronary artery of [place] heart without angina pectoris; [facility] MD Kurt HFrEF (heart failure with reduced ejecti on fraction); Drive [facility] Permanent [place] [address] CARDIOLOGY [phone] [place], [place] [address] Social History Tobacco Use Types Packs/Day Years Used Date Former Smoker Cigarettes 0.5 50 Smokeless Tobacco: Never Used Alcohol Use Standard Drinks/Week Comments Yes 42 (1 standard drink = 0.6 oz pure alcoh ol) Sex Assigned at Date Recorded Not on file documented as of this encounter Last Filed Vital Signs Vital Sign Reading Time Taken Comments Blood Pressure 104/62 06/13/2022 9:43 AM EDT Pulse 107 06/13/2022 9:43 AM EDT Temperature - - Respiratory Rate - - Oxygen Saturation 100% 06/13/2022 9:43 AM EDT Inhaled Oxygen Concentration - - Weight 77.7 kg (171 lb 3.2 oz) 06/13/2022 9:43 AM EDT Height 172.7 cm (5' 8) 06/13/2022 9:43 AM EDT Body Mass Index 26.03 06/13/2022 9:43 AM EDT documented in this encounter Patient Instructions Patient InstructionsAlan Reid MD - 06/13/2022 10:00 AM EDT Your new medication is digoxin. The dose is .125 mg daily Everything else stays the same I will see you back in two months. You will have an echocardiogram prior to your visit. documented in this encounter Progress Notes Alan Reid MD - 06/13/2022 10:00 AM EDT Images from the original note were not included. [facility] [place] [phone] CARDIOLOGY OUTPATIENT PROGRESS NOTE PRIMARY CARE PROVIDER: Bobby Das MD REFERRING PROVIDER: Nasrin Parra PROBLEM LIST: Patient Active Problem List Diagnosis ??? Coronary artery disease involving [place] coronary artery of [place] heart without angina pectoris 05/20/22 Cath * Two vessel coronary artery disease (LCX and RCA) * Successful stent insertion of the ostial OM1 lesion * Successful angioplasty of the mid LCX lesion * See Dual Antiplatelet (DAPT) Recommendations above * COnsider PCI of distal RCA if indicated. ??? HFrEF (heart failure with reduced ejection fraction) 05/16/22 echo Left ventricle is mildly dilated. Left ventricular systolic function is severely reduced. The left ventricular ejection fraction is 28% by [place]ola's biplane. Right ventricular systolic function is mildly decreased. There is moderate aortic stenosis. The mean gradient across the aortic valve is 13 mmHg. JUVENAL 1.2 cm2 ??? Permanent atrial fibrillation ??? Limb ischemia ??? History of basal cell carcinoma ??? Basal cell carcinoma ??? Verruca vulgaris ??? AK (actinic keratosis) ??? GIB (gastrointestinal bleeding) Secondary to 3-4 ASA/day, required admission and blood transfusion ??? MVP (mitral valve prolapse) s/p repair Surgery done at [facility] in 2000 ??? Hypertriglyceridemia ??? Adhesive capsulitis of L shoulder ??? Alcohol use MEDICATIONS: Current Outpatient Medications Medication Sig Dispense Refill ??? clopidogreL (Plavix) 75 mg Tablet Take 1 tablet by mouth daily. 90 tablet 3 ??? metoprolol succinate XL (Toprol-XL) 50 mg Tablet Sustained Release 24 hr Take 1 tablet by mouth daily. 30 tablet 12 ??? pantoprazole EC (Protonix) 40 mg Tablet, Delayed Release (E.C.) Take 1 tablet by mouth daily. 90tablet 3 ??? fluticasone propionate (FLONASE) 50 mcg/actuation [place], Suspension 1 spray by Each Nare route daily as needed. ??? ascorbic acid, vitamin C, (VITAMIN C) [...] ORAL) Take 1 tablet by mouth daily. ??? rivaroxaban (Xarelto) 20 mg Tablet Take 1 tablet by mouth daily. 90 tablet 3 ??? dapagliflozin (Farxiga) 5 mg Tablet Take 1 tablet by mouth daily. 90 tablet 3 ??? digoxin (Lanoxin) 125 mcg (0.125 mg) Tablet Take 1 tablet by mouth daily. 90 tablet 3 ??? acetaminophen (Tylenol) 325 mg Tablet Take 2 tablets by mouth every 6 hours as needed for Pain. (Patient not taking: Reported on 06/13/2022) 30 tablet 1 ??? fluorouraciL (EFUDEX) 5 % Cream daily. No current facility-administered medications for this visit. Subjective: Patient ID: Koko Zamora is a 81 y.o. patient of Bobby Das MD. HPI: This is the initial follow-up visit for a 81-year-old patient with a previous history of mitral valve repair, now 20 years ago who was found during a hospitalization for critical limb ischemia to have atrial fibrillation with rapid ventricular response left ventricular systolic dysfunction HFrEF and co ronary artery disease. Ejection fraction was below 30%. Subsequent angiographic assessment revealed multivessel coronary disease and he underwent percutaneous revascularization. His heart failure was treated and he was discharged without diuretics. His heart rate was slowed with a beta-norma. Since discharge he reports that his leg is healing well. He has no claudication in his left lower extremity. He still has exertional dyspnea. He finds that activities such as chasing his dog outside are difficult. He has no resting dyspnea. He denies PND or orthopnea. No edema on his right lower extremity which is the nonsurgical site. He never really had angina. He has no palpitations and had no real awareness of his atrial fibrillation. Today he saw vascular surgery and had his windy removed. They have removed any restrictions from him and tell him that he can walk without restriction. His only limitation other than his exertional dyspnea that he relates is some mild dizziness when he first gets up during the day. REVIEW OF SYSTEMS: Otherwise noncontributory Family History: No family history on file. Social History: Social History Socioeconomic History ??? Marital status: Spouse name: Not on file ??? Number of children: Not on file ??? Years of education: Not on file ??? Highest education level: Not on file Occupational History ??? Not on file Tobacco Use ??? Smoking status: Former Smoker Packs/day: 0.50 Years: 50.00 Pack years: 25.00 Types: Cigarettes ??? Smokeless tobacco: Never Used Vaping Use ??? Vaping Use: Never used Substance and Sexual Activity ??? Alcohol use: Yes Alcohol/week: 42.0 standard drinks Types: 42 Cans of beer per week ??? Drug use: Not Currently ??? Sexual activity: Not on file Other Topics Concern ??? Not on file Social History Narrative ??? Not on file Social Determinants of Health Financial Resource Strain: Not on file Food Insecurity: Not on file Transportation Needs: Not on file Physical Activity: Not on file Housing Stability: Not on file Objective: PHYSICAL EXAM: BP 104/62 (BP Location (NBP): Right arm, Patient Position: Sitting) Pulse (!) 107 Ht 172.7 cm (5' 8) Wt 77.7 kg (171 lb 3.2 oz) SpO2 100% BMI 26.03 kg/m?? , Body mass index is 26.03 kg/m??. General: Pleasant. No distress. Skin: Warm and dry. HEENT: Anicteric sclera. Neck: JVP not elevated. No AJR. No carotid bruits. Chest: Clear to auscultation Heart: No heave. Irregular and rapid rhythm. Variable S1 and S2. No gallops. No murmurs. Abdomen: Nondistended. Soft. Nontender. Extremities: No edema. Wound healing well. Markedly diminished left radial pulse. MUD TRUCKER: Normal mentation. Psych: Appropriate affect. Labs: Lab Results Component Value Date WBC 7.2 06/02/2022 WBC 7.8 06/01/2022 HGB 8.7 (L) 06/02/2022 HGB 8.3 (L) 06/01/2022 PLATELET 260 06/02/2022 PLATELET 263 06/01/2022 NA 142 06/02/2022 NA 141 06/01/2022 NA 140 05/31/2022 K 3.8 06/02/2022 K 4.0 06/01/2022 CL 108 (H) 06/02/2022 CL 108 (H) 06/01/2022 CO2 24 06/02/2022 CO2 24 06/01/2022 BUN 12 06/02/2022 BUN 23 (H) 06/01/2022 CREATININE 0.71 (L) 06/02/2022 CREATININE 0.78 (L) 06/01/2022 Assessment and Plan: HFrEF (heart failure with reduced ejection fraction) He is still symptomatic with exertional dyspnea from his HFrEF. Unfortunately, at this point blood pressure is the limiting factor in drug titration. We cannot add an ARB or increase his beta-norma. He is already otherwise on guideline directed medical therapy with an SGLT2 inhibitor and a beta-norma. He would benefit from better heart rate control. I have therefore added digoxin as the only realoption at this point. I am going to plan on seeing him back in 2 months. If his ejection fraction remains significantly diminished he will be referred to EP for consideration of device therapy possiblyincluding AV node ablation and CURER FOAM RUBBER-D. Coronary artery disease involving [place] coronary artery of [place] heart without angina pectoris His coronary disease was always asymptomatic. He has now been revascularized with the exception of his distal right coronary artery lesion. He is on appropriate medical therapy with clopidogrel. No aspirin because of concurrent rivaroxaban. He is on high-dose statin. I have not made any changes in his therapy and this does not require specific follow-up. My plan is long-term clopidogrel given the severity of his peripheral arterial disease. Permanent atrial fibrillation He is on appropriate oral anticoagulation with rivaroxaban. He needs better rate control. I have added digoxin. Ultimately if I cannot control his rate and his ejection fraction remains low he will be referred to EP for consideration of AV node ablation and CURER FOAM RUBBER-D Patient Instructions ??? Your new medication is digoxin. The dose is .125 mg daily ??? Everything else stays the same ??? I will see you back in two months. You will have an echocardiogram prior to your visit. Thank you for the opportunity to participate in this patient's cardiovascular care. All questions were answered and I look forward to the next visit. Alan Reid MD documented in this encounter Miscellaneous Notes Assessment & Plan Note - Alan Reid MD - 06/13/2022 10:23 AM EDT Associated Problem(s): Permanent atrial fibrillation He is on appropriate oral anticoagulation with rivaroxaban. He needs better rate control. I have added digoxin. Ultimately if I cannot control his rate and his ejection fraction remains low he will be referred to EP for consideration of AV node ablation and CURER FOAM RUBBER-D Assessment & Plan Note - Alan Reid MD - 06/13/2022 10:22 AM EDT Associated Problem(s): Coronary artery disease involving [place] coronary artery of [place] heart without angina pectoris His coronary disease was always asymptomatic. He has now been revascularized with the exception of his distal right coronary artery lesion. He is on appropriate medical therapy with clopidogrel. No aspirin because of concurrent rivaroxaban. He is on high-dose statin. I have not made any changes in his therapy and this does not require specific follow-up. My plan is long-term clopidogrel given the severity of his peripheral arterial disease. Assessment & Plan Note - Alan Reid MD - 06/13/2022 10:21 AM EDT Associated Problem(s): HFrEF (heart failure with reduced ejection fraction) He is still symptomatic with exertional dyspnea from his HFrEF. Unfortunately, at this point blood pressure is the limiting factor in drug titration. We cannot add an ARB or increase his beta-norma. He is already otherwise on guideline directed medical therapy with an SGLT2 inhibitor and a beta-norma. He would benefit from better heart rate control. I have therefore added digoxin as the only realoption at this point. I am going to plan on seeing him back in 2 months. If his ejection fraction remains significantly diminished he will be referred to EP for consideration of device therapy possiblyincluding AV node ablation and CURER FOAM RUBBER-D. documented in this encounter Plan of Treatment Upcoming Encounters Date Type Specialty Care Team Description 07/02/2022 Office Visit Vascular Surgery Jing Ghosh, [facility] DR VASCULAR SURGERY [place], [place] [address] (Wo rk) 09/02/2022 Clinical Support Dermatology Thai Lynn MD [facility] DR [facility]NY [facility] [place], [place] [address] (Wo rk) 09/02/2022 Procedure visit Dermatology Jace Lynn MD [facility] DR [address] [place], [place] [address] (Wo rk) 09/05/2022 Appointment Cardiology Trinity Reid MD [facility] CARDIOLOGY [place], [place] [address] (Wo rk) 09/05/2022 Office Visit Cardiology Trinity Reid MD [facility] CARDIOLOGY [place], [place] [address] (Wo rk) Scheduled Orders Name Type Priority Associated Order Schedule Diagnoses Echocardiogram Echocardiography Routine HFrEF (heart Expected: Transthoracic failure with 08/13/2022, reduced ejection Expires: fraction) 02/12/2023 documented as of this encounter Visit Diagnoses Diagnosis Coronary artery disease involving [place] coronary artery of [place] heart without angina pectoris HFrEF (heart failure with reduced ejecti on fraction) Permanent atrial fibrillation Atrial fibrillation documented in this encounter Care Teams Bioinformatics Specialist Relationship Specialty Start Date End Date Bobby Das MD PCP - General 10/02/[address] [place] [address] [place] [phone] documented as of this encounter
--- OUTSIDE RECORDS SUMMARY | 2022-06-23 00:16 | XMS_ITS | Encounter Summary ---
:1940 Author Organization [facility] [place] [address] Care Team Providers Name Role Phone Bobby Das MD Primary Care Provider Reason for Referral Consultation (Routine) - Authorized Specialty Diagnoses / Procedures Referred By Contact Refer red To Contact Diagnoses HFrEF (heart failure with reduced ejection fraction) Coronary artery disease involving [place] coronary artery of [place] heart without angina pectoris Alan Reid MD [facility] [place] [address] Referral ID Status Reason Start Date Expiration Visits Visits Date Requested Authorized [id number] Authorized Consult, 06/20/2022 12/17/2022 36 36 Test & Treat Encounter Details Date Type Department Care Team Description 06/20/2022 Orders Only Cardiology at [facility] [place] Alan Reid HFrEF (heart failure with re duced ejection fraction); [facility] MD Kurt Coronary artery disease involving [place] coronary artery [place] heart without [place] [address] CARDIOLOGY [phone] [place], [place] [address] (Wo rk) Social History Tobacco Use Types [...] 07/02/2022 Office Visit Vascular Surgery Jing Ghosh, CONSULTING APPLICATION ENGINEER [facility] VASCULAR SURGERY [place], [place] [address] (Wo rk) 09/02/2022 Clinical Support Dermatology Thai Lynn MD [facility] [address] [facility], [place] [address] (Wo rk) 09/02/2022 Procedure visit Dermatology Jace Lynn MD [facility] DR [address], [place] [address] (Wo rk) 09/05/2022 Appointment Cardiology Trinity Reid MD [facility] CARDIOLOGY [place], [place] [address] (Wo rk) 09/05/2022 Office Visit Cardiology Trinity Reid MD [facility] CARDIOLOGY [place], [place] [address] (Wo rk) Scheduled Referrals Name Type Priority Associated Diagnoses Order S chedule Referral to Outpatient Referral Routine HFrEF (heart failure Ordered: Cardiac Rehab with reduced 06/20/2022 ejection fractio n) Coronary artery disease involving [place] coronary artery of [place] heart without angina pectoris documented as of this encounter Visit Diagnoses Diagnosis HFrEF (heart failure with reduced ejecti on fraction) Coronary artery disease involving [place] coronary artery of [place] heart without angina pectoris documented in this encounter Care Teams Senior Data Quality Analyst Relationship Specialty Start Date End Date Bobby Das MD PCP - General 10/02/[address] [place] [address] [place] [phone] documented as of this encounter
--- OUTSIDE RECORDS SUMMARY | 2022-06-23 00:16 | XMS_ITS | Encounter Summary ---
:1940 Author Organization [facility] [place] [address] Care Team Providers Name Role Phone Bobby Das MD Primary Care Provider Reason for Visit Reason Comments Skin Lesion Consultation (Routine) - Closed Specialty Diagnoses / Procedures Referred By Contact Refer red To Contact Dermatology Diagnoses Lesion on right eye = hx of skin cancer Bobby Das MD [facility] Dermatology Procedures Lesion on right eye = hx of skin cancer [address] [facility] [address] [place] [address] [place] [address] Fax: Referral ID Status Reason Start Date Expiration Date Visits Requ ested Visits Authorized [id number] Closed 04/22/2022 04/22/2023 1 1 Encounter Details Date Type Department Care Team Description 06/10/2022 Office Visit Dermatology at [facility], Neoplasm of Road unspecified behavior [address] [facility] [place] [address] [address] and skin [phone] D[place]OLOGY [place] [address] Social History Tobacco Use Types Packs/Day Years Used Date Former Smoker Cigarettes 0.5 50 Smokeless Tobacco: Never Used Alcohol Use Standard Drinks/Week Comments Yes 44 (1 standard drink = 0.6 oz pure alcoh ol) Sex Assigned at Date Recorded Not on file documented as of this encounter Progress Notes Loretta Cohen MD - 06/10/2022 11:00 AM EDT Images from the original note were not included. DEPARTMENT OF DERMATOLOGY [facility] Provider: Noel Burgos MD Patient's preferred name Koko Preferred contact method for results [x]Phone []myD-H []Letter Detailed phone message OK? Yes Are there any other people with whom we may discuss your care? 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 Patient is referred to the clinic at the request of Bobby Das for the following: - Lesion on the right eyebrow that has been present since last Mohs surgery in 2018. The area can bepruritic. It started to become irritating 2 months after the surgery. Review of Systems: General: Feeling well. Skin: No other skin concerns. Medications: Reviewed in eD-H Allergies: Reviewed in eD-H Skin Examination: Focused skin examination of the right eyebrow was normal with the exception of the findings below. Assessment/Plan #. Favor recurrent BCC - pearly eroded papule in close approximation to scar on the right lateral eyebrow (Figure 1). - Recommended a skin biopsy to confirm/clarify the nature of the skin lesion. After discussion of potential risks (scarring, bleeding, infection) and recurrence, patient agreed to proceed. - Patient denies known allergies to lidocaine and epinephrine. Procedure: Skin shave biopsy Location: right lateral eyebrow Discussed indications for procedure and expectations including risks and benefits. Verbal consent obtained. Time out performed. Skin prepped with alcohol. Local anesthesia with 1% xylocaine, 1/100,000 epinephrine. A sample of the lesion was removed by shave technique to the level of the dermis and subm itted to Pathology. Hemostasis obtained (AlCl/electrocautery). There were no complications; patient tolerated the procedure well. Wound dressed. Post- procedure expectations, wound care and activity restrictions reviewed. - Follow-up based on pathology results. Figure 1 Photo(s) taken and charted with patient's verbal consent. Other: ??? N/A RTC: Pending pathology []Note routed to escrow secretary []Recall placed in scheduling system []Appointment scheduled at checkout Scribe attestation: Sidney Higgins and Loretta Gomez CMA performed the documentation for this encounter in the presence of and acting as a scribe for Noel Burgos MD. I performed the above scribed service and agree with the accuracy of the documentation in this encounter. Reviewed and signed by: Noel Burgos MD Dermatology [facility] Loretta Cohen MD - 06/10/2022 11:00 AM EDT DERMATOLOGY TELEPHONE NOTE Koko Zamora 06/17/2022 [id number] Reason for call: Discuss biopsy results I called the patient this afternoon to discuss the results of his recent biopsy: - ??Basal cell carcinoma, nodular pattern, transected at the peripheral and deep ??specimen edges We discussed the recommendation for mohs surgery, patient in agreement. Referral placed. Loretta Cohen MD Dermatology Resident documented in this encounter Plan of Treatment Upcoming Encounters Date Type Specialty Care Team Description 07/02/2022 Office Visit Vascular Surgery Jing Ghosh, [employer] EXAM[employer]ER [facility] VASCULAR SURGERY [place], [place] [address] (Rebekah rojas) 09/02/2022 Clinical Support Dermatology Thai Lynn MD [facility] [place] [address] (Rebekah rojas) 09/02/2022 Procedure visit Dermatology Jace Lynn MD [facility] ER DR [address] [place], [place] [address] (Wo rk) 09/05/2022 Appointment Cardiology Trinity Reid MD [facility] ER CARDIOLOGY [place], [place] [address] (Wo rk) 09/05/2022 Office Visit Cardiology Trinity Reid MD [facility] ER CARDIOLOGY [place], [place] [address] (Wo rk) documented as of this encounter Procedures Procedure Name Priority Date/Time Associated Diagnosis Comme nts SPECIMEN TO Routine 06/10/2022 1:20 PM Neoplasm of Results f or this PATHOLOGY EDT unspecified behavior procedu re are in of bone, soft the results tissue, and skin section. SURGICAL PATHOLOGY Routine 06/10/2022 11:43 AM Re devon for this REPORT EDT procedure are i n the results section. documented in this encounter Results Specimen to Pathology (06/10/2022 1:20 PM EDT) Specimen Anatomical Collection Method Collection Time Receive d Time (Source) Location / / Volume Laterality AP Specimen 06/10/2022 1:20 PM 2 1:20 EDT PM EDT Narrative [facility] - 06/10/2022 1:20 PM EDT Specimen requisition ordered. ??Separate Pathology report to follow Loretta Cohen MD PATHOLOGY/CYTOLOGY ORDERABLE S Performing Organization Address City/State/[place] [address] Surgical Pathology Report (06/10/2022 11:43 AM EDT) Component Value Ref Test Analysis Performed At Patholo gist Range Method Time Signature Surgical [id number] ? Location: [facility] Report The signing pathologist has (i) examined the relevant preparation(s) for the [facility] specimen(s) and (ii) rendered or confirmed the diagnosis(es) . H[facility]ORY . ?Surgic al Pathology DIAGNOSIS Right lateral eyebrow, skin shave biopsy: - ??Basal cell carcinoma, no dular pattern, transected at the peripheral and deep specimen edges Electronically signed by: ?Delroy CARCAMO, PhD, [place] Verified: ??06/12/2022 14:33 ??Dermatopathologist Performed at: ??-[facility] [place] Dept. [place]ology, [place], [place] SPECIMEN(S) SUBMITTED A - right lateral eyebrow, skin shave biopsy (1) CLINICAL INFORMATION Pearly papule in close approximation to scar. Rule out recur rent BCC SPECIMEN PROCESSING A - Labeled/Fixative: Patient demographics, formalin. Quantity/Size: ??Single, 0.6 x 0.3 cm. Tissue Description: Non-oriented de leon-whi te skin shave and attached fragment of clotted blood. Sections/Processing: The skin shave is inked and bisected. The attached blood clot is left intact. The specimen is entirely submitted in 1 cassette labeled A1. ??shb Specimen (Source) Anatomical Collection Method Collection Time Re ceived Time Location / / Volume Laterality 06/10/2022 11:43 AM EDT Loretta Cohen MD PATHOLOGY/CYTOLOGY ORDERABLE S Performing Organization Address City/State/[place] [address] [facility] documented in this encounter Visit Diagnoses Diagnosis Neoplasm of unspecified behavior of bone , soft tissue, and skin documented in this encounter Care Teams Scrap Piler Relationship Specialty Start Date End Date Bobby Das MD PCP - General 10/02/[address] [place] [address] [place] [address] documented as of this encounter
--- OUTSIDE RECORDS SUMMARY | 2022-06-23 00:16 | XMS_ITS | Clinical Summary ---
:1940 Author Organization [facility] [address] Care Team Providers Name Role Phone Abby Das MD Primary Care Provider Allergies Active Allergy Reactions Severity Noted Date Comments Aspirin Other (See Comments) 06/28/2011 GI blee d Medications Medication Sig Dispensed Refills Start Date End Date Status MULTIVITAMIN (MULTIPLE Take 1 tablet 0 Active VITAMIN ORAL) by mouth daily. CRESTOR 40 mg Tablet Take 40 mg by 0 09/13/2016 Active mouth daily. sildenafiL (VIAGRA) 100 mg Take 100 mg 0 Active Tablet by mouth as needed for Erectile Dysfunction. carboxymethylcellulose Apply to eye 0 Active (REFRESH PLUS) 0.5 % 3 times daily Dropperette as needed. calcium citrate (CALCITRATE) Take 1 tablet 0 Active 200 mg (950 mg) Tablet by mouth daily. tamsulosin (FLOMAX) 0.4 mg Take 0.4 mg 0 Active Capsule by mouth daily. fluticasone propionate 1 spray by 0 04/12/2021 Active (FLONASE) 50 mcg/actuation Each Nare [place], Suspension route daily as needed. fluorouraciL (EFUDEX) 5 % daily. 0 04/12/2021 Active Cream ascorbic acid, vitamin C, Take 1,000 mg 0 09/04/2020 Active (VITAMIN C) 1,000 mg Tablet by mouth daily. acetaminophen (Tylenol) 325 Take 2 30 tablet 1 05/21/2022 Active mg Tablet tablets by mouth every 6 hours as needed for Pain. Additional Information Patient not taking. Reported on 06/13/2022 clopidogreL (Plavix) 75 mg Take 1 tablet by mouth 90 tablet 3 05/22/2022 Active Tablet daily. metoprolol succinate XL Take 1 tablet by mouth 30 tablet 12 10/2022 Active (Toprol-XL) 50 mg Tablet daily. Sustained Release 24 hr pantoprazole EC (Protonix) 40 Take 1 tablet by mouth 90 tablet 3 05/22/2022 Active mg Tablet, Delayed Release daily. (E.C.) rivaroxaban (Xarelto) 20 mg Take 1 tablet by mouth 90 tablet 3 06/13/2022 Active Tablet daily. dapagliflozin (Farxiga) 5 mg Take 1 tablet by mouth 90 tablet 3 06/13/2022 Active Tablet daily. digoxin (Lanoxin) 125 mcg Take 1 tablet by mouth 90 tablet 3 0 06/13/2022 Active (0.125 mg) Tablet daily. Active Problems Problem Noted Date Coronary artery disease involving white earth coronary priscilla ry of white earth heart 06/13/2022 without angina pectoris Overview: 05/20/22 Cath * Two vessel coronary artery disease (LC X and RCA) * Successful stent insertion of the ost ial OM1 lesion * Successful angioplasty of the mid LCX lesion * See Dual Antiplatelet (DAPT) Recommen dations above * COnsider PCI of distal RCA if indicat ed. Last Assessment & Plan: His coronary disease was always asymptom atic. He has now been revascularized with the exception of his distal right coronary artery lesion. He is on appropriate medical therapy with clopidogrel. No aspi rin because of concurrent rivaroxaban. Delores stern is on high-dose statin. I have not made any changes in his therapy and this does not require specific follow-up. My plan is long-term clopidogrel given the severity of his peripheral arterial disease. HFrEF (heart failure with reduced ejection fraction) 0 06/13/2022 Overview: 05/16/22 echo Left ventricle is mildly dilated. 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 The left ventricular ejection f raction is 28% by Gaxiola's biplane. Right ventricular systolic function is m ildly decreased. There is moderate aortic stenosis. The m campos gradient across the aortic valve is 13 mmHg. JUVENAL 1.2 cm2 Last Assessment & Plan: He is still symptomatic with exertional dyspnea from his HFrEF. Unfortunately, at this point blood pressure is the limiting factor in drug titration. We cannot add an ARB or increase his beta-norma. Delores stern is already otherwise on guideline dire cted medical therapy with an SGLT2 inhibitor and a beta-norma. He would benefit from better heart rate control. I have therefore added digoxin as the only real option at this point. I am going to plan on seeing him back in 2 months. If his ejection fraction remains significantly diminished he will be referred to EP for consideration of device therapy possibly including AV node ablation and ENGRAVER STEEL PLATE-D. Permanent atrial fibrillation 06/13/2022 Last Assessment & Plan: Formatting of th is note might be different from the original. He is on appropriate oral anticoagulatio n with rivaroxaban. He needs better rate control. I have added digoxin. Ultimately if I cannot control his rate and his ejection fraction remains low he will be r eferred to EP for consideration of AV no de ablation and ENGRAVER STEEL PLATE-D Limb ischemia 05/15/2022 History of basal cell carcinoma 05/31/2014 Basal cell carcinoma 03/29/2014 Verruca vulgaris 03/29/2014 AK (actinic keratosis) 03/29/2014 GIB (gastrointestinal bleeding) 06/28/2011 Overview: Secondary to 3-4 ASA/day, required admis lynette and blood transfusion MVP (mitral valve prolapse) s/p repair 06/28/2011 Overview: Surgery done at [facility] in 2 001 Hypertriglyceridemia 06/28/2011 Adhesive capsulitis of L shoulder 06/28/2011 Alcohol use 06/28/2011 Encounters Date Type Specialty Care Team Description 06/20/2022 Orders Only Cardiology Jeanette, HFrEF (heart fa ilure with reduced ejection fraction); Alan Hicks MD Coronary priscilla ry disease involving white earth coronary artery of white earth heart without angina pectoris 06/19/2022 Telephone Cardiology Kourtney Jimenez RN 06/17/2022 Orders Only Dermatology Loretta Cohen Basal cell c carlos Paez MD (BCC) of right forehead 06/13/2022 Office Visit Cardiology Jeanette, Coronary artery disease involving white earth coronary artery of white earth heart without angina pectoris; Alan Hicks MD HFrEF (heart failure with reduced ejection fraction); Permanent atria l fibrillation 06/13/2022 Office Visit Vascular Surgery Fito Summers Limb isch alma Tan MD 06/13/2022 Tech Visit Vascular Surgery Presch, Edson Limb isc hemia L, [place] 06/10/2022 Office Visit Dermatology Loretta Cohen Neoplasm of MD Philippe unspecified beh avior of bone, soft t issue, and skin 05/31/2022 Anesthesia Event Gastroenterology Elmer Johnson MD Drost, Alexander J, SUSTAINABILITY COORDINATOR 05/31/2022 Surgery Gastroenterology Giovani Ponce, RACHAEL Gomez MD ENDOSCOPY 05/31/2022 - Hospital Encounter Dominique Hinds, GIB (g astrointestinal 06/02/2022 MD bleeding) (Primary Dx) Mahendra Victor MD Friedman, Harley P, MD Ratanamaneechat, Suphagaphan, MD 05/31/2022 Office Visit Vascular Surgery Davina, Ch Dizzy; B, SUPERVISOR BLOOD [employer]UIT[employer] Atrial fibrilla tion, unspecified type; SOB (shortness of breath) 05/28/2022 Telephone Vascular Surgery Dominique Bolivar RN 05/24/2022 Telephone Cardiology Kourtney Jimenez RN 05/21/2022 Hospital Encounter Cardiology Paroxysma l atrial fibrillation 05/20/2022 Surgery Cardiology Abundio Servin CARDIAC MD Dixon CATHETERIZATION 05/15/2022 Anesthesia Event Surgery Cari Hernandez MD Patel, Shreena K, SUSTAINABILITY COORDINATOR 05/15/2022 Surgery Surgery Fito Summers EMBOLECTOMY Elton Tan MD THROMBECTOMY, FEMOROPOPLITEAL , AORTOILIAC PRISCILLA RY BY LEG INCISION (W RVU 19.48) 05/15/2022 - Hospital Encounter Fito Summers Atrial fibrillation, unspecified type; 05/21/2022 MD Dominick Non-ST elevation myocardial infarction ( NSTEMI); Wellington Jean Limb ischem ia; MD Daquan HFrEF (heart fa ilure with reduced ejection fraction); Paroxysmal atri al fibrillation 05/15/2022 Ancillary Radiology Matt Branham MD 05/15/2022 Ancillary Radiology Matt Branham MD from Last 3 Months Social History Tobacco Use Types Packs/Day Years Used Date Former Smoker Cigarettes 0.5 50 Smokeless Tobacco: Never Used Alcohol Use Standard Drinks/Week Comments Yes 42 (1 standard drink = 0.6 oz pure alcoh ol) Sex Assigned at Date Recorded Not on file Last Filed Vital Signs Vital Sign Reading Time Taken Comments Blood Pressure 104/62 06/13/2022 9:43 AM EDT Pulse 107 06/13/2022 9:43 AM EDT Temperature 37.1 ??C (98.8 ??F) 06/02/2022 7:14 AM EDT Respiratory Rate 25 06/02/2022 12:19 PM EDT Oxygen Saturation 100% 06/13/2022 9:43 AM EDT Inhaled Oxygen Concentration - - Weight 77.7 kg (171 lb 3.2 oz) 06/13/2022 9:43 AM EDT Height 172.7 cm (5' 8) 06/13/2022 9:43 AM EDT Body Mass Index 26.03 06/13/2022 9:43 AM EDT Plan of Treatment Upcoming Encounters Date Type Specialty Care Team Description 07/02/2022 Office Visit Vascular Surgery Jing Ghosh, HIRAL [facility] VASCULAR SURGERY [place] [id number] (Wo rk) 09/02/2022 Clinical Support Dermatology Thai Lynn MD [facility] DR JENNY BILLY-DERMAT [place] [phone] (Wo rk) 09/02/2022 Procedure visit Dermatology Jace Lynn MD [facility] DR JENNY BILLY-DERMAT [place], [place] [address] (Wo rk) 09/05/2022 Appointment Cardiology Trinity Reid MD [facility] CARDIOLOGY [place], [place] [address] (Wo rk) 09/05/2022 Office Visit Cardiology Trinity Reid MD [facility] CARDIOLOGY [place], [place] [address] (Wo rk) Health Maintenance Due Date Last Done Comments Covid-19 Vaccine (#1) 1945 Hepatitis C Screening 1960 Tdap adult 1961 Tetanus vaccine 1961 Zoster vaccine (1 of 2) 1992 Advance Directive 1997 Pneumoccocal Vaccine: 65+ (1 - PCV) 2007 Influenza (Flu) vaccine (1 of 1 - Influenza standard 07/11/2022 series) Procedures Procedure Name Priority Date/Time Associated Diagnosis Comme nts JOSSELYN, LEGS, MULTIPLE Routine 06/13/2022 7:13 Limb ischemia Resu lts for this LEVELS AM EDT procedure are i n the results section. SPECIMEN TO PATHOLOGY Routine 06/10/2022 1:20 Neoplasm of Res ults for this PM EDT unspecified behavior procedu re are in of bone, soft the results tissue, and skin section. SURGICAL PATHOLOGY Routine 06/10/2022 11:43 Resul ts for this REPORT AM EDT procedure are i n the results section. DIFFERENTIAL, AUTOMATED Routine 06/02/2022 8:20 R esults for this AM EDT procedure are i n the results section. HEMOGRAM Routine 06/02/2022 8:20 Results for this AM EDT procedure are i n the results section. HC CBC,PLT & AUTO DIFF Routine 06/02/2022 8:20 AM EDT HC UNFRACTIONATED Routine 06/02/2022 6:30 Results for this HEPARIN (HEP UFH) AM EDT procedure are in the results section. HC UNFRACTIONATED Routine 06/02/2022 12:30 Result s for this HEPARIN (HEP UFH) AM EDT procedure are in the results section. HC MAGNESIUM, SERUM Routine 06/02/2022 12:30 Resu lts for this AM EDT procedure are i n the results section. BASIC METABOLIC PANEL Routine 06/02/2022 12:30 Re sults for this (NON-FASTING) AM EDT procedure are in the results section. SCAN DOC: TELEMETRY 06/01/2022 8:37 STRIPS PM EDT DIFFERENTIAL, AUTOMATED Routine 06/01/2022 7:29 R esults for this PM EDT procedure are i n the results section. HEMOGRAM Routine 06/01/2022 7:29 Results for this PM EDT procedure are i n the results section. HC CBC,PLT & AUTO DIFF Routine 06/01/2022 7:29 PM EDT HC UNFRACTIONATED Routine 06/01/2022 7:29 Results for this HEPARIN (HEP UFH) PM EDT procedure are in the results section. HC UNFRACTIONATED Routine 06/01/2022 11:32 Result s for this HEPARIN (HEP UFH) AM EDT procedure are in the results section. SCAN DOC: TELEMETRY 06/01/2022 9:44 STRIPS AM EDT DIFFERENTIAL, AUTOMATED Routine 06/01/2022 5:56 R esults for this AM EDT procedure are i n the results section. HEMOGRAM Routine 06/01/2022 5:56 Results for this AM EDT procedure are i n the results section. HC CBC,PLT & AUTO DIFF Routine 06/01/2022 5:56 AM EDT HC UNFRACTIONATED Routine 06/01/2022 4:30 Results for this HEPARIN (HEP UFH) AM EDT procedure are in the results section. URINALYSIS WITH REFLEX Routine 06/01/2022 4:00 Re sults for this CULTURE AM EDT procedure are i n the results section. HC MAGNESIUM, SERUM Routine 06/01/2022 1:00 Resul ts for this AM EDT procedure are i n the results section. BASIC METABOLIC PANEL Routine 06/01/2022 1:00 Res ults for this (NON-FASTING) AM EDT procedure are in the results section. DIFFERENTIAL, AUTOMATED Routine 06/01/2022 12:00 Results for this AM EDT procedure are i n the results section. HEMOGRAM Routine 06/01/2022 12:00 Results for this AM EDT procedure are i n the results section. HC CBC,PLT & AUTO DIFF Routine 06/01/2022 12:00 AM EDT SCAN DOC: TELEMETRY 05/31/2022 9:57 STRIPS PM EDT DIFFERENTIAL, AUTOMATED Routine 05/31/2022 9:17 R esults for this PM EDT procedure are i n the results section. HEMOGRAM Routine 05/31/2022 9:17 Results for this PM EDT procedure are i n the results section. HC CBC,PLT & AUTO DIFF Routine 05/31/2022 9:17 PM EDT EGD, W CONTROL OF 05/31/2022 4:05 melena BLEEDING, ANY METHOD PM EDT EGD, UPPER GI ENDOSCOPY 05/31/2022 4:05 melena PM EDT UPPER GI ENDOSCOPY Routine 05/31/2022 3:37 Result s for this PM EDT procedure are i n the results section. CT ABDOMEN AND PELVIS STAT 05/31/2022 2:28 Res ults for this WWO CONTRAST (GI BLEED) PM EDT proc edure are in the results section. TRANSFUSE RED BLOOD Routine 05/31/2022 2:03 CELLS PM EDT TYPE AND SCREEN STAT 05/31/2022 1:43 Results f or this VALIDITY PM EDT procedure are i n the results section. ABORH RECHECK STATUS STAT 05/31/2022 1:43 Resu lts for this PM EDT procedure are i n the results section. ANTIBODY SCREEN STAT 05/31/2022 1:43 Results f or this PM EDT procedure are i n the results section. ABO/RH TYPING STAT 05/31/2022 1:43 Results for this PM EDT procedure are i n the results section. HC ANTIBODY STAT 05/31/2022 1:43 DETECTION,CAPTURE-R PM EDT PREPARE RBC STAT 05/31/2022 1:35 Results for this PM EDT procedure are i n the results section. PREPARE RBC STAT 05/31/2022 1:25 Results for this PM EDT procedure are i n the results section. DIFFERENTIAL, AUTOMATED STAT 05/31/2022 12:44 Results for this PM EDT procedure are i n the results section. HEMOGRAM STAT 05/31/2022 12:44 Results for this PM EDT procedure are i n the results section. HC CBC,PLT & AUTO DIFF STAT 05/31/2022 12:44 PM EDT BLOOD GAS 2 VENOUS Routine 05/31/2022 11:24 Resul ts for this AM EDT procedure are i n the results section. HC THYROID STIMULATING STAT 05/31/2022 11:20 R esults for this HORMONE, SERUM AM EDT procedure are in the results section. XR CHEST PA AND LATERAL STAT 05/31/2022 11:06 Results for this AM EDT procedure are i n the results section. LIPASE STAT 05/31/2022 10:50 Results for this AM EDT procedure are i n the results section. HEPATIC FUNCTION PANEL STAT 05/31/2022 10:50 R esults for this AM EDT procedure are i n the results section. BLUE TUBE HOLD STAT 05/31/2022 10:50 Results f or this AM EDT procedure are i n the results section. DIFFERENTIAL, AUTOMATED STAT 05/31/2022 10:50 Results for this AM EDT procedure are i n the results section. HEMOGRAM STAT 05/31/2022 10:50 Results for this AM EDT procedure are i n the results section. HC PHOSPHORUS, SERUM STAT 05/31/2022 10:50 Res ults for this AM EDT procedure are i n the results section. HC MAGNESIUM, SERUM STAT 05/31/2022 10:50 Resu lts for this AM EDT procedure are i n the results section. HC PROBNP STAT 05/31/2022 10:50 Results for this AM EDT procedure are i n the results section. HC TROPONIN T STAT 05/31/2022 10:50 Results fo r this AM EDT procedure are i n the results section. BASIC METABOLIC PANEL STAT 05/31/2022 10:50 Re sults for this (NON-FASTING) AM EDT procedure are in the results section. HC CBC,PLT & AUTO DIFF STAT 05/31/2022 10:50 AM EDT EKG 12-LEAD STAT 05/31/2022 10:11 Results for this AM EDT procedure are i n the results section. ZIOPATCH 48 HRS-15 DAYS Routine 05/21/2022 4:33 Paroxysmal atr ial Results for this PM EDT fibrillation procedure are i n the results section. SCAN DOC: TELEMETRY 05/21/2022 3:29 STRIPS PM EDT HC UNFRACTIONATED Routine 05/21/2022 12:35 Result s for this HEPARIN (HEP UFH) PM EDT procedure are in the results section. DIFFERENTIAL, AUTOMATED Routine 05/21/2022 6:15 R esults for this AM EDT procedure are i n the results section. HEMOGRAM Routine 05/21/2022 6:15 Results for this AM EDT procedure are i n the results section. HC CBC,PLT & AUTO DIFF Routine 05/21/2022 6:15 AM EDT SCAN DOC: TELEMETRY 05/21/2022 5:38 STRIPS AM EDT EKG 12-LEAD STAT 05/20/2022 7:04 Non-ST elevation Results for this PM EDT myocardial procedure are i n infarction (NSTEMI) the resu lts section. CARDIAC CATHETERIZATION Routine 05/20/2022 6:45 R esults for this PM EDT procedure are i n the results section. POCT GLUCOSE Routine 05/20/2022 5:42 Results for this PM EDT procedure are i n the results section. SCAN DOC: TELEMETRY 05/20/2022 4:50 STRIPS PM EDT HC VENIPUNCTURE STAT 05/20/2022 10:50 Results for this AM EDT procedure are i n the results section. SCAN DOC: TELEMETRY 05/20/2022 6:32 STRIPS AM EDT HC UNFRACTIONATED Routine 05/20/2022 5:02 Results for this HEPARIN (HEP UFH) AM EDT procedure are in the results section. DIFFERENTIAL, AUTOMATED Routine 05/20/2022 5:02 R esults for this AM EDT procedure are i n the results section. HEMOGRAM Routine 05/20/2022 5:02 Results for this AM EDT procedure are i n the results section. HC VENIPUNCTURE Routine 05/20/2022 5:02 AM EDT HC UNFRACTIONATED Routine 05/19/2022 3:26 Results for this HEPARIN (HEP UFH) AM EDT procedure are in the results section. DIFFERENTIAL, AUTOMATED Routine 05/19/2022 3:26 R esults for this AM EDT procedure are i n the results section. HEMOGRAM Routine 05/19/2022 3:26 Results for this AM EDT procedure are i n the results section. HC CBC,PLT & AUTO DIFF Routine 05/19/2022 3:26 AM EDT HC VENIPUNCTURE Routine 05/18/2022 8:00 Results f or this PM EDT procedure are i n the results section. DIFFERENTIAL, AUTOMATED Routine 05/18/2022 3:34 R esults for this AM EDT procedure are i n the results section. HEMOGRAM Routine 05/18/2022 3:34 Results for this AM EDT procedure are i n the results section. HC UNFRACTIONATED Routine 05/18/2022 3:34 Results for this HEPARIN (HEP UFH) AM EDT procedure are in the results section. HC CBC,PLT & AUTO DIFF Routine 05/18/2022 3:34 AM EDT MAGNESIUM Routine 05/17/2022 3:33 Results for this AM EDT procedure are i n the results section. BASIC METABOLIC PANEL Routine 05/17/2022 3:33 Res ults for this (NON-FASTING) AM EDT procedure are in the results section. DIFFERENTIAL, AUTOMATED Routine 05/17/2022 3:33 R esults for this AM EDT procedure are i n the results section. HEMOGRAM Routine 05/17/2022 3:33 Results for this AM EDT procedure are i n the results section. HC VENIPUNCTURE Routine 05/17/2022 3:33 AM EDT URINALYSIS MICROSCOPIC STAT 05/16/2022 11:15 R esults for this EXAM PM EDT procedure are i n the results section. URINALYSIS WITH REFLEX STAT 05/16/2022 11:15 R esults for this CULTURE PM EDT procedure are i n the results section. HC VENIPUNCTURE Routine 05/16/2022 10:59 Results for this PM EDT procedure are i n the results section. XR CHEST ONE VIEW STAT 05/16/2022 9:14 Results for this PM EDT procedure are i n the results section. EKG 12-LEAD STAT 05/16/2022 8:57 Atrial fibrillation, Resu lts for this PM EDT unspecified type procedure a re in the results section. HC UNFRACTIONATED Routine 05/16/2022 4:34 Results for this HEPARIN (HEP UFH) PM EDT procedure are in the results section. ECHOCARDIOGRAM COMPLETE Routine 05/16/2022 12:49 Atrial fibril lation, Results for this W CONTRAST PM EDT unspecified type procedure a re in the results section. DIFFERENTIAL, AUTOMATED Routine 05/16/2022 3:01 R esults for this AM EDT procedure are i n the results section. HEMOGRAM Routine 05/16/2022 3:01 Results for this AM EDT procedure are i n the results section. HC PHOSPHORUS, SERUM Routine 05/16/2022 3:01 Resu lts for this AM EDT procedure are i n the results section. HC MAGNESIUM, SERUM Routine 05/16/2022 3:01 Resul ts for this AM EDT procedure are i n the results section. BASIC METABOLIC PANEL Routine 05/16/2022 3:01 Res ults for this (NON-FASTING) AM EDT procedure are in the results section. HC CBC,PLT & AUTO DIFF Routine 05/16/2022 3:01 AM EDT SCAN DOC: TELEMETRY 05/15/2022 8:01 STRIPS PM EDT BLOOD GAS 2 ARTERIAL Routine 05/15/2022 3:33 Resu lts for this PM EDT procedure are i n the results section. BLOOD GAS 2 ARTERIAL Routine 05/15/2022 2:06 Resu lts for this PM EDT procedure are i n the results section. EMBOLECTOMY OR 05/15/2022 1:20 Acute Limb Ischemia THROMBECTOMY, PM EDT FEMOROPOPLITEAL, AORTOILIAC ARTERY BY LEG INCISION (WRVU 19.48) HC PROTHROMBIN TIME STAT 05/15/2022 12:30 Resu lts for this PM EDT procedure are i n the results section. HC PARTIAL STAT 05/15/2022 12:30 Results for this THROMBOPLASTIN TIME PM EDT procedur e are in the results section. GOLD TUBE HOLD Routine 05/15/2022 12:20 Results f or this PM EDT procedure are i n the results section. TYPE AND SCREEN STAT 05/15/2022 12:00 Results for this VALIDITY PM EDT procedure are i n the results section. ABORH RECHECK STATUS STAT 05/15/2022 12:00 Res ults for this PM EDT procedure are i n the results section. CK STAT 05/15/2022 12:00 Results for this PM EDT procedure are i n the results section. ANTIBODY SCREEN STAT 05/15/2022 12:00 Results for this PM EDT procedure are i n the results section. ABO/RH TYPING STAT 05/15/2022 12:00 Results fo r this PM EDT procedure are i n the results section. DIFFERENTIAL, AUTOMATED STAT 05/15/2022 12:00 Results for this PM EDT procedure are i n the results section. HEMOGRAM STAT 05/15/2022 12:00 Results for this PM EDT procedure are i n the results section. HC ANTIBODY STAT 05/15/2022 12:00 DETECTION,CAPTURE-R PM EDT BASIC METABOLIC PANEL STAT 05/15/2022 12:00 Re sults for this (NON-FASTING) PM EDT procedure are in the results section. HC CBC,PLT & AUTO DIFF STAT 05/15/2022 12:00 PM EDT EMBOLECTOMY/THROMBECT, Routine 05/15/2022 10:42 FEMOROPOPLITEAL, AM EDT AORTOILIAC ARTERY BY LEG INCIS FILM LIBRARY STORAGE Routine 05/15/2022 9:32 Resu lts for this ONLY CT ABDOMEN AM EDT procedure ar e in the results section. FILM LIBRARY STORAGE Routine 05/15/2022 9:31 Resu lts for this ONLY DX CHEST AM EDT procedure are in the results section. from Last 3 Months Results JOSSELYN, legs, multiple levels (06/13/2022 7:13 AM EDT) Component Value Ref Test Analysis Performed At [facility] Range Method Time Signature VB Text Department: Vascular Surgery Lab VASCU[facility] Report Patient: [id number] (KOKO BAH) CPT: 26728 Referring Physician: FITO SUMMERS ?? 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 Diabetes mellitus: no Findings: Right ?Pressure [...] Address City/State/ZIP Code Phon e Number [email or web address] Specimen to Pathology (06/10/2022 1:20 PM EDT) Specimen Anatomical Collection Method Collection Time Receive d Time (Source) Location / / Volume Laterality AP Specimen 06/10/2022 1:20 PM 1:20 EDT PM EDT Narrative [facility] - 06/10/2022 1:20 PM EDT Specimen requisition ordered. ??Separate Pathology report to follow Loretta Cohen MD PATHOLOGY/CYTOLOGY ORDERABLE S Performing Organization Address City/[facility] [place] [address] Surgical Pathology Report (06/10/2022 11:43 AM EDT) Component Value Ref Test Analysis Performed At [facility] Range Method Time Signature Surgical [id number] ? Location: [facility] Pathology SHIRLEY Report The signing pathologist has (i) examined the relevant preparation(s) for the [facility] specimen(s) and (ii) rendered or confirmed the diagnosis(es) . HOSPITAL LABORATORY . ?Surgic al Pathology DIAGNOSIS Right lateral eyebrow, skin shave biopsy: - ??Basal cell carcinoma, no dular pattern, transected at the peripheral and deep specimen edges Electronically signed by: ?Delroy CARCAMO, PhD, [facility] Verified: ??06/12/2022 14:33 ??Dermatopathologist Performed at: ??-[facility] [place] Dept. [place]ology, [place], [place] SPECIMEN(S) SUBMITTED A - right lateral [...] Organization Address City/State/ZIP Code Phon e Number [address] (ABNORMAL) Hemogram (06/02/2022 8:20 AM EDT)Only the most recent of14 results within the time period is included. Analysis Performed At Patho logist Time Signature WBC 7.2 4.0 - 9.5 [facility] x10(3)/[facility] LABORATORY RBC 2.74 (L) 4.58 - [place] 5.54 [facility] x10(6)/[facility] LABORATORY Hemoglobin 8.7 (L) 13.7 - [facility] [place] 16.5 g/dL [facility] Hematocrit 25.7 (L) 40.5 - [facility] 48.5 % [facility] MCV 93.8 (H) 82.9 - [facility] 93.1 [facility] LABORATORY MCH 31.8 27.5 - [facility] 32.1 pg [facility] MCHC 33.9 32.0 - [facility] 35.7 g/dL [facility] Platelets 260 145 - 357 [facility] x10(3)/[facility] LABORATORY RDWSD 51.0 (H) 36.0 - [facility] 45.0 [facility] LABORATORY RDWCV 14.9 (H) 11.4 - [facility] 13.8 % [facility] MPV 10.0 7.6 - 12.9 [facility] LABORATORY nRBC % Auto 0.0 % [facility] nRBC Abs Auto 0.000 0.000 - [facility] 0.000 [facility] x10(3)/[facility] LABORATORY Specimen Anatomical Collection Method Collection Time Receive d Time (Source) Location / / Volume Laterality Blood 06/02/2022 8:20 AM 8:25 EDT AM EDT Resulting Agency Comment Spec In Lab Kurt Ames MD HEMATOLOGY ORDERABLES Performing Organization Address City/State/[place] [address] (ABNORMAL) Differential, Automated (06/02/2022 8:20 AM EDT)Only the most recent of14 resultswithin the time period is included. P athologist Signature Neutrophils % 61.3 % [facility] Neutr Abs (ANC) 4.44 1.70 - [facility] 6.10 [facility] x10(3)/[facility] LABORATORY Lymphocytes % 25.2 % [facility] Lymphocytes Abs 1.8 0.9 - 3.2 [facility] x10(3)/[facility] LABORATORY Monocytes % 10.0 % [facility] Monocyte Abs 0.7 0.3 - 0.9 [facility] x10(3)/[facility] LABORATORY Eosinophils % 2.1 % [facility] Eosinophils Abs 0.2 0.0 - 0.4 [facility] x10(3)/[facility] LABORATORY Basophils % 0.7 % [facility] Basophils Abs 0.0 0.0 - 0.1 [facility] x10(3)/[facility] LABORATORY Immature Gran % 0.70 % [facility] Comment: Immature granulocytes(IG's)percentage an d absolute count will include metamyelocytes, myelocytes, and promyelo cytes. Blood smears from CBCs yielding IG's will be scanned manually for concor dance. If this scan disagrees with the automated IG or if promyelocytes are not ed, a manual differential will be performed. Rain Gran Abs 0.05 (H) 0.00 - 0.04 x10(3)/[facility] LABORATORY Specimen Anatomical Collection Method Collection Time Receive d Time (Source) Location / / Volume Laterality Blood 06/02/2022 8:20 AM 8:25 EDT AM EDT Resulting Agency Comment Spec In Lab Kurt Ames MD HEMATOLOGY ORDERABLES Performing Organization Address City/State/[place] [address] Heparin (unfractionated) Level (06/02/2022 6:30 AM EDT)Only the most recent of11 resultswithin the time period is included. P athologist Signature Heparin UFH 0.39 IU/mL [facility] LABORATORY Comment: Heparin (anti-Xa) levels should be deter mined in a plasma sample that has been drawn 6 hours after a dose change to leopoldo roximate steady-state for continuous heparin infusions. Indication specific Heparin (anti-Xa) le vels based on order set selection: Acute DVT or PE treatment: 0.3 ? 0.7 IU/mL Thrombosis Prevention (eg. atrial fibril lation, nikki-procedural bridging, mechanical valves): 0.3 ? 0.7 IU/mL Acute Coronary Syndrome: 0.3 ? 0.7 IU/mL Stroke Indications: 0.3 ? 0.5 IU/mL Ultra-low intensity (select indications in cardiac surgery): 0.1 ? 0.3 IU/mL Specimen Anatomical Collection Method Collection Time Receive d Time (Source) Location / / Volume Laterality Blood 06/02/2022 6:30 AM 6:49 EDT AM EDT Resulting Agency Comment Spec In Lab Mahendra Victor MD HEMATOLOGY ORDERABLES Performing Organization Address City/[facility]/ZIP [facility] Phon e Number [address] Magnesium (06/02/2022 12:30 AM EDT)Only the most recent of5 resultswithin the time period is included. athologist Signature Magnesium 0.83 0.69 - 1.07 [facility] mmol/L [facility] Specimen Anatomical Collection Method Collection Time Receive d Time (Source) Location / / Volume Laterality Blood 06/02/2022 12:30 06/02/2022 AM EDT 12:40 AM EDT Resulting Agency Comment Spec In Lab Mahendra Victor MD CHEMISTRY ORDERABLES Performing Organization Address City/[facility] [place] [address] (ABNORMAL) Basic Metabolic Panel (non-fasting) (06/02/2022 12:30 AM EDT)Only the most recent of6 resultswithin the time period is included. athologist Signature Glucose Lvl 151 65 - 199 [facility] mg/dL [facility] Comment: Diabetes: >=200 mg/dL plus symp toms BUN 12 10 - 20 mg/dL [facility] Creatinine 0.71 (L) 0.80 - 1.50 mg/dL [facility] Sodium 142 135 - 145 mmol/L [facility] Potassium 3.8 3.5 - 5.0 mmol/L [facility] Comment: Please note: ??Patients with WBC >100,00 0 may have falsely elevated Potassium levels. ??For accurate Potassium quantif ication in these patients send serum separator tube (gold top) for subsequent determinations. ??Contact the Clinical Chemistry Laboratory if there are any qu estions. Chloride 108 (H) 98 - 107 mmol/L [facility] CO2 24 22 - 31 mmol/L [facility] Anion Gap 10 5 - 15 mmol/L [facility] Calcium 8.1 (L) 8.5 - 10.5 mg/dL [facility] Estimated GFR 93 >=60 mL/min/1.73 m?? [facility] Comment: This patient's estimated GFR was calcula dede using the 2020 CKD-EPI equation. The estimated GFR can vary from the allison ured GFR by up to 30% in the absence of rapidly changing kidney function. Assess ment of the estimated GFR is not appropriate when creatinine concentratio ns are rapidly changing. For clinical situations in which a more precise estim ate of GFR is necessary, consider alternative methods of GFR estimation samano ch as a 24-hour urine creatinine clearance. Assignment of CKD stage 1-5 for patients with an eGFR near the transition point between stages may be based on clinical assessment of muscle mass and symptoms in addition to eGFR. Specimen Anatomical Collection Method Collection Time Receive d Time (Source) Location / / Volume Laterality Blood 06/02/2022 12:30 06/02/2022 AM EDT 12:40 AM EDT Resulting Agency Comment Spec In Lab Mahendra Victor MD CHEMISTRY ORDERABLES Performing Organization Address City/State/[place] [address] SCAN DOC: TELEMETRY STRIPS (06/01/2022 8:37 PM EDT)Only the most recent of8 resultswithin the time period is included. Narrative This result has an attachment that is no t available. Unknown MEDIA MGR SCAN EXT ORDR/RSLT (ABNORMAL) Urinalysis with reflex Culture (06/01/2022 4:00 AM EDT)Only the most recent of2 resultswithin the time period is included. [facility] Method Time Signature Glucose UA 500 Negative [facility] (Critical) mg/dL [facility] Comment: Urinalysis result NOT critical without a combination of Glucose greater than or equal to 500 mg/dL AND Ketones greate r than or equal to 80 mg/dL Protein UA Negative Negative mg/dL [facility] Bilirubin UA Negative Negative mg/dL [facility] Comment: Clinical correlation required for positi ve Urine Bilirubin results as false positive may occur with some drugs and d rug related products. If a false positive is suspected a serum total bili quarles should be considered if clinically indicated. Urobilinogen UA Normal Normal mg/dL [facility] pH UA 6.0 5.0 - 8.0 [facility] Blood UA Negative Negative mg/dL [facility] Ketones UA Negative Negative mg/dL [facility] Nitrite UA Negative Negative [facility] Leukocytes UA Negative Negative [facility] LABORATORY Appearance UA Clear Clear [facility] Spec [place] UA >=1.030 (A) 1.005 - 1.030 [facility] Color UA Yellow Yellow [facility] Culture Reflexed No [facility] Specimen Anatomical Collection Method Collection Time Receive d Time (Source) Location / / Volume Laterality Clean Catch 06/01/2022 4:00 AM 4:26 Urine EDT AM EDT Resulting Agency Comment Spec In Lab Mahendra iVctor MD URINE ORDERABLES Performing Organization Address City/State/[place] [address] Transfuse RBC (05/31/2022 7:36 PM EDT) Dominique Hinds MD NURSING TREATMENT ORDERABLES - BLOOD ADMIN UPPER GI ENDOSCOPY (05/31/2022 3:37 PM EDT) Component Value Ref Test Analysis Performed At [facility] Range Method Time Signature UPPER GI [facility] Endoscopy Procedure Date: 05/31/2022 3:37 PM ? Patient Name: Koko Bah ? Date of : 1940 ? Age: 81 ? Order #: [id number] ? Instrument Name: [id number] ? Procedure: ? Upper GI endoscopy Indications: ? Melena, Suspected upper ? gastrointestinal bleeding Providers: ? Giovani Ponce, Torrey Gannon , ? Vani Wei, DION, Juhi Maxwell, ? Alannah Hutchinson, Torres Christensen MD: ?Dominique Hinds Medicines: ? Propofol per Anesthesia Complications: ? No immediate complications. Procedure: ? Pre-Anesthesia Assessment: ? - Prior to the procedure, a History ? and Physical was performed , and ? patient medications and al lergies ? were reviewed. The patient is ? competent. The risks and b enefits ? of the procedure and the s edation ? options and risks were dis cussed ? with the patient. All ques tions ? were answered and informed consent ? was obtained. Patient ? identification and propose d ? procedure were verified by the ? physician in the pre-proce dure ? area. Mental Status Examin ation: ? alert and oriented. Airway ? Examination: normal oropha ryngeal ? airway and neck mobility. ? Respiratory Examination: c lear to ? auscultation. CV Examinati on: ? normal. Prophylactic Antib iotics: ? The patient does not requi re ? prophylactic antibiotics. Prior ? Anticoagulants: The patien t has ? taken no anticoagulant or ? antiplatelet agents. ASA G rade ? Assessment: III - A patien t with ? severe systemic disease. A fter ? reviewing the risks and be nefits, ? the patient was deemed in ? satisfactory condition to undergo ? the procedure. The anesthe ted plan ? was to use monitored anest hesia ? care (MAC). Immediately pr ior to ? administration of medicati ons, the ? patient was re-assessed fo r ? adequacy to receive sedati ves. The ? heart rate, respiratory ra te, ? oxygen saturations, blood pressure, ? adequacy of pulmonary vent ilation, ? and response to care were monitored ? throughout the procedure. The ? physical status of the pat ient was ? re-assessed after the proc edure. ? The procedure, indications , ? benefits, risks and altern atives ? were explained to the vanessa ent. ? Specifically discussed wer e ? potential complications in cluding, ? but not limited to, amarilys jasmine, ? perforation, infection, mi ssing a ? cancer, and adverse medica tion ? reactions. The Endoscope w as ? introduced through the edison th, and ? advanced to the fourth par t of ? duodenum The patient el ated the ? procedure well. ? Findings: ? The examined esophagus was normal. ? A few localized diminutive erosions with no bleeding ? and no stigmata of recent bleeding were found in the ? gastric antrum. ? Two small angioectasias were found in the third ? portion of the duodenum. One was oozing. Both were ? treated with argon beam at 0.8 liters/minute and 20 ? rodríguez. ? Moderate Sedation: ? Not applicable - See Anesthesia documentation Impression: ?- Normal esophagus. ? - Mild erosive gastropathy with no ? bleeding and no stigmata o f recent ? bleeding. ? 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 ? Both were treated with arg on beam ? coagulation. ? - No specimens collected. Recommendation: ?- Return patient to [facility] ? for ongoing care. ? - Clear liquid diet today. ? - Observe patient's clinic al course. ? - Follow up with [facility] GI ? consult service. ? Procedure Code(s): ? --- Professional --- ? 31264, Esophagogastroduode noscopy, ? flexible, transoral; with control ? of bleeding, any method Diagnosis Code(s): ? --- Professional --- ? K92.1, Melena (includes ? Hematochezia) ? 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 K31.89, Other diseases of stomach ? and duodenum ? --- Technical --- ? K92.1, Melena (includes ? Hematochezia) ? 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 K31.89, Other diseases of stomach ? and duodenum CPT copyright 2020 [employer]. All rights reserved. The codes documented in this report are preliminary and upon sales development executive review may be revised to meet current compliance requirements. Attending Participation: ? I was present and participated during the entire ? procedure, including non-diaz portions. ? Giovani Patricia Ponce, 05/31/2022 4:56:14 PM Number of Addenda: 0 Note Initiated On: 05/31/2022 3:37 PM Specimen (Source) Anatomical Collection Method Collection Time Re ceived Time Location / / Volume Laterality 05/31/2022 3:37 PM EDT Dominique Hinds MD GENERAL SURGICAL ORDERABLES Performing Organization Address City/State/ZIP Code Phon e Number [facility] Abdomen & Pelvis wwo Contrast (GI BLEED) (05/31/2022 2:28 PM EDT) Anatomical Region Laterality Modality Abdomen, Pelvis Computed Tomography Specimen (Source) Anatomical Collection Method Collection Time Re ceived Time Location / / Volume Laterality 05/31/2022 2:53 PM EDT Impressions 05/31/2022 2:39 PM EDT 1. ??No active extravasation/bleeding. 2. ??Mild soft tissue stranding noted in the LEFT inguinal region secondary to procedure. No barrett hematoma. Thank you for letting us participate in the care of this patient. ??If you are a health care provider and have any questi ons regarding this report, please contact the number below. ??For patients who have questions please contact the health director critical care that requested your imaging first. ? Electronically signed by: Jl walter MD, [facility] ([phone]), at 05/31/2022 2:39 PM Narrative 05/31/2022 2:39 PM EDT EXAMINATION: CT ABDOMEN AND PELVIS WWO CONTRAST (GI BLEED) CLINICAL HISTORY: Significant Hb drop. U nknown source. has had a LHC with stent placed and revascularization of left low er extremity within the past two weeks, recently on anticoagulation Unknown source of bleeding TECHNIQUE: Helical CT of the abdomen and pelvis was performed before and after the intravenous administration contrast utilizing GI bleed protocol. Administered 125.0 ml of OMNIPAQUE 350.0 0 mg/ml. Oral contrast was not administered. COMPARISON: 05/15/2022 from [facility] FINDINGS: GI Tract: Pre-contrast: No bowel dilatation or int raluminal hemorrhage. Arterial phase: No active contrast extra vasation. Portal venous phase: There is no active extravasation or pooling of contrast. No dilated loops of bowel, bowel wall thick ening or abnormal enhancement. Peritoneum: No ascites or free air, no f luid collection. Lung bases: Mild RIGHT basilar pleural t hickening/scarring Liver: Normal size, no focal lesions. Bile ducts: Non-dilated Gallbladder: No calcified gallstones. No rmal caliber wall. Pancreas: Normal size, no focal lesions. Spleen: Normal size, no focal lesions. Adrenals: Normal size, no focal lesions. Kidneys: Symmetric enhancement. No colle cting system obstruction bilaterally. 5 mm nonobstructing LEFT lower pole calcul us. Urinary Bladder: Normal size, no focal l esions. Lymph Nodes: [No enlarged lymph nodes. Vasculature: Patent common iliac, machine stone polisher al iliac, and common femoral arteries bilaterally. Post revascularization of t he LEFT common femoral artery. Abdominal wall: Postoperative stranding noted in LEFT inguinal soft tissues. No barrett hematoma. Reproductive organs: Calcifications in t he prostate gland as well as 2 fiducial implants. Osseous structures: No suspicious lesion s. Procedure Note Jl Zuluaga MD - 05/31/2022Form atting of this note might be different from the original. EXAMINATION: CT ABDOMEN AND PELVIS [place] (GI BLEED) CLINICAL HISTORY: Significant Hb drop. U nknown source. has had a LHC with stent placed and revascularization of left low er extremity within the past two weeks, recently on anticoagulation Unknown source of bleeding TECHNIQUE: Helical CT of the abdomen and pelvis was performed before and after the intravenous administration contrast utilizing GI bleed protocol. Administered 125.0 ml of OMNIPAQUE 350.0 0 mg/ml. Oral contrast was not administered. COMPARISON: 05/15/2022 from [facility] FINDINGS: GI Tract: Pre-contrast: No bowel dilatation or int raluminal hemorrhage. Arterial phase: No active contrast extra vasation. Portal venous phase: There is no active extravasation or pooling of contrast. No dilated loops of bowel, bowel wall thick ening or abnormal enhancement. Peritoneum: No ascites or free air, no f luid collection. Lung bases: Mild RIGHT basilar pleural t hickening/scarring Liver: Normal size, no focal lesions. Bile ducts: Non-dilated Gallbladder: No calcified gallstones. No rmal caliber wall. Pancreas: Normal size, no focal lesions. Spleen: Normal size, no focal lesions. Adrenals: Normal size, no focal lesions. Kidneys: Symmetric enhancement. No colle cting system obstruction bilaterally. 5 mm nonobstructing LEFT lower pole calcul us. Urinary Bladder: Normal size, no focal l esions. Lymph Nodes: [No enlarged lymph nodes. Vasculature: Patent common iliac, machine stone polisher al iliac, and common femoral arteries bilaterally. Post revascularization of t he LEFT common femoral artery. Abdominal wall: Postoperative stranding noted in LEFT inguinal soft tissues. No barrett hematoma. Reproductive organs: Calcifications in t he prostate gland as well as 2 fiducial implants. Osseous structures: No suspicious lesion s. IMPRESSION 1. No active extravasation/bleeding. 2. Mild soft tissue stranding noted in t he LEFT inguinal region secondary to procedure. No barrett hematoma. Thank you for letting us participate in the care of this patient. If you are a health care provider and have any questi ons regarding this report, please contact the number below. For patients w ho have questions please contact the health director critical care that requested your imaging first. Electronically signed by: Jl walter MD, [facility] ([phone]), at 05/31/2022 2:39 PM Dominique Hinds MD IMG CT ORDERABLES Type and Screen Validity (05/31/2022 1:43 PM EDT)Only the most recent of2 resultswithin the time period is included. [facility] Method Time Signature T&S only valid [facility] LABORATORY Comment: This Type and Screen result is only valid at the [facility] Specimen Anatomical Collection Method Collection Time Receive d Time (Source) Location / / Volume Laterality Blood 05/31/2022 1:43 PM 2 1:57 EDT PM EDT Resulting Agency Comment Spec In Lab Dominique Hinds MD BLOOD BANK ORDERABLES Performing Organization Address [facility] [place] [address] ABORH Recheck Status (05/31/2022 1:43 PM EDT)Only the most recent of2 results within the time period is included. [facility] Method Time Signature ABORH Type Completed [facility] LABORATORY Specimen Anatomical Collection Method Collection Time Receive d Time (Source) Location / / Volume Laterality Blood 05/31/2022 1:43 PM 2 1:57 EDT PM EDT Resulting Agency Comment Spec In Lab Dominique Hinds MD BLOOD BANK ORDERABLES Performing Organization Address City/[facility]/[place] [address] ABO/Rh Typing (05/31/2022 1:43 PM EDT)Only the most recent of2 resultswithin the time period is included. P athologist Signature ABORh Type O Pos [facility] Specimen Anatomical Collection Method Collection Time Receive d Time (Source) Location / / Volume Laterality Blood 05/31/2022 1:43 PM 2 1:57 EDT PM EDT Resulting Agency Comment Spec In Lab Dominique Hinds MD BLOOD BANK ORDERABLES Performing Organization Address City/[facility]/ZIP Code [place] [address] Antibody screen (05/31/2022 1:43 PM EDT)Only the most recent of2 resultswithin the time period is included. Patholo gist Method Time Signature Ab Screen Negative [facility] LABORATORY Expires at 06/03/2022 ILDA SHIRLEY [id number] on: [facility] Specimen Anatomical Collection Method Collection Time Receive d Time (Source) Location / / Volume Laterality Blood 05/31/2022 1:43 PM 2 1:57 EDT PM EDT Resulting Agency Comment Spec In Lab Dominique Hinds MD BLOOD BANK ORDERABLES Performing Organization Address City/[facility]/ZIP Code Phon e Number [address] Prepare RBC (05/31/2022 1:35 PM EDT)Only the most recent of2 resultswithin the time period is included. athologist Signature Dispensed? Yes [facility]OR[facility]ORY Specimen Anatomical Collection Method Collection Time Receive d Time (Source) Location / / Volume Laterality Blood 05/31/2022 1:35 PM 2 1:30 EDT PM EDT Dominique Hinds MD BLOOD BANK ORDERABLES Performing Organization Address City/[facility]/ZIP [place] [address] (ABNORMAL) BLOOD GAS 2 VENOUS (05/31/2022 11:24 AM EDT) P athologist Signature pH Marco Antonio 7.38 7.32 - [facility] 7.42 [facility] pCO2 Marco Antonio 40 (L) 41 - 51 [facility] LABORATORY pO2 Marco Antonio 18 (L) 25 - 40 [facility] LABORATORY HCO3 Marco [place] 23.3 mmol/L [facility]ORY BE Marco Antonio -1.8 mmol/L [facility] Hgb Blood Gas 7.0 (L) 13.7 - [facility] 16.5 g/dL [facility] O2HB Marco Antonio 24.3 % [facility]ORY COHB Marco Antonio 1.4 % [facility] LABORATORY Comment: Nonsmokers: 0.5-1.5% COHB Smokers: Variable, but usually less than 10% Toxic: 20-30% COHB Lethal: Greater than 60% COHB METHB Marco Antonio 1.7 (H) <=1.5 % [facility] Na Whole Blood 137 135 - 145 mmol/L [facility] K Whole Blood 3.9 3.5 - 5.0 mmol/L [facility] LABOR[facility]ORY Comment: Please note: Patients with WBC >100,000 may have falsely elevated Potassium levels. Contact the Clinical Chemistry L aboratory if there are any questions. ICa Whole Blood 1.19 1.15 - 1.33 mmol/L [facility] [facility] Comment: Note: ??Total bilirubin higher than 20 m g/dL may lead to falsely low ionized calcium. CL Whole Blood 107 98 - 107 mmol/L [facility] Gluc Whole Bld 204 (H) 65 - 199 mg/dL [facility] Comment: Diabetes: >=200 mg/dL plus symp toms Lactate WB 1.4 0.5 - 2.2 mmol/L [facility] BGas Source Venous [facility] Specimen Anatomical Collection Method Collection Time Receive d Time (Source) Location / / Volume Laterality Blood 05/31/2022 11:24 05/31/2022 AM EDT 11:24 AM EDT Dominique Hinds MD CHEMISTRY ORDERABLES Performing Organization Address City/State/[place] [address] TSH [place] (05/31/2022 11:20 AM EDT) P athologist Signature TSH 1.67 0.27 - 4.20 [facility] mcIU/mL [facility] Comment: Reference Interval (mcIU/mL): Females: ??First Trimester: 0.23-3.88 ??Second Trimester: 0.22-3.90 ??Third Trimester: 0.44-4.66 Specimen Anatomical Collection Method Collection Time Receive d Time (Source) Location / / Volume Laterality Blood 05/31/2022 11:20 05/31/2022 AM EDT 11:28 AM EDT Resulting Agency Comment Spec In Lab Dominique Hinds MD CHEMISTRY ORDERABLES Performing Organization Address City/State/ZIP Code Phon e Number [place] [id number] XR Chest PA & Lateral (Generic) (05/31/2022 11:06 AM EDT) Anatomical Region Laterality Modality Chest N/A Digital Radiography Specimen (Source) Anatomical Location Collection Method / Collectio n Time Received Time / Laterality Volume Impressions 05/31/2022 11:33 AM EDT No findings to suggest pneumonia. Prominent pulmonary vascular without ove rt interstitial or pulmonary edema. I have personally reviewed the image(s) and the resident's interpretation and agree with the findings, Alan contreras MD at 05/31/2022 11:33 AM Thank you for letting us participate in the care of this patient. ??If you are a health care provider and have any questi ons regarding this report, please contact the number below. ??For patients who have questions please contact the health director critical care that requested your imaging first. ? Narrative 05/31/2022 11:33 AM EDT EXAMINATION: XR CHEST PA AND LATERAL (GENERIC) CLINICAL HISTORY: CHAMBERS, Fatigue. HFrEF, r ecent LHC with stent placed. ?pulmonary edema TECHNIQUE: PA and lateral views of the chest, 2 marita ges COMPARISON: Chest radiograph 05/16/2022 FINDINGS: There are median sternotomy wires and me diastinal surgical clips. No focal consolidation. There is mild pulmonary v ascular congestion. Prior pulmonary interstitial edema has resolved. No pneu mothorax. No pleural effusions. Unchanged mild cardiomegaly. Hilar are n ormal in size. Status post vertebroplasty at 2 thoracic levels. Procedure Note Alan Brnik MD - 05/31/2022Fo rmatting of this note might be different from the original. EXAMINATION: XR CHEST PA AND LATERAL (GE NERIC) CLINICAL HISTORY: CHAMBERS, Fatigue. HFrEF, r ecent LHC with stent placed. ?pulmonary edema TECHNIQUE: PA and lateral views of the chest, 2 marita ges COMPARISON: Chest radiograph 05/16/2022 FINDINGS: There are median sternotomy wires and me diastinal surgical clips. No focal consolidation. There is mild pulmonary v ascular congestion. Prior pulmonary interstitial edema has resolved. No pneu mothorax. No pleural effusions. Unchanged mild cardiomegaly. Hilar are n ormal in size. Status post vertebroplasty at 2 thoracic levels. IMPRESSION No findings to suggest pneumonia. Prominent pulmonary vascular without ove rt interstitial or pulmonary edema. I have personally reviewed the image(s) and the resident's interpretation and agree with the findings, Alan contreras MD at 05/31/2022 11:33 AM Thank you for letting us participate in the care of this patient. If you are a health care provider and have any questi ons regarding this report, please contact the number below. For patients w ho have questions please contact the health director critical care that requested your imaging first. Electronically signed by: Alna strong MD, [facility] ([phone]), at 05/31/2022 11:33 AM Dominique Hinds MD IMG DX ORDERABLES Blue Tube HOLD (05/31/2022 10:50 AM EDT) athologist Signature Blue Hold Sample in [facility]. [facility] Specimen Anatomical Collection Method Collection Time Receive d Time (Source) Location / / Volume Laterality Blood Venous Draw / 05/31/2022 10:50 05/31/2022 Unknown AM EDT 11:05 AM EDT Brittany Ramirez MD HEMATOLOGY ORDERABLES Performing Organization Address City/State/[place] [address] Troponin (05/31/2022 10:50 AM EDT) athologist Signature Troponin-T <0.01 0.00 - 0.00 [place] ng/mL [facility] Comment: The 99th percentile for Troponin T is le ss than 0.01 ng/mL, any detectable cTnT concentration using this assay should be considered elevated. According to the third universal definit ion of myocardial infarction the following criteria with a clinical prese ntation consistent with acute myocardial ischemia meets the diagnosis for a myocardial infarction (AK). Detection of a rise and/or fall of cTnT, with at least one value greater than the 99th percentile (> or = 0.01) and wi th at least one of the following ?? Symptoms of ischemia ?? New or presumed new significant ST-se gment-T wave (ST-T) changes or new left bundle branch block (LBBB) ?? Development of pathologic Q waves in the ECG ?? Imaging evidence of new loss of viabl e myocardium or new regional wall motion abnormality ?? Identification of an intracoronary th rombus by angiography or autopsy Samples for cTnT testing should be obtai rio serially upon first assessment and again 3 to 6 hours later. If the clinica l suspicion is high and previous samples have been negative an additional sample may be indicated. Reference: Third [place] Definition of Myocardial Infarction. Journal of the [place] College [employer] 2012;60:1581-98 Specimen Anatomical Collection Method Collection Time Receive d Time (Source) Location / / Volume Laterality Blood 05/31/2022 10:50 05/31/2022 AM EDT 11:03 AM EDT Resulting Agency Comment Spec In Lab Dominique Hinds MD CHEMISTRY ORDERABLES Performing Organization Address City/State/ZIP Code Phon e Number [facility] [address] Phosphorus (05/31/2022 10:50 AM EDT)Only the most recent of2 resultswithin the time period is included. athologist Signature Phosphorus 3.2 2.5 - 4.5 [facility] XIAO mg/dL [facility] Specimen Anatomical Collection Method Collection Time Receive d Time (Source) Location / / Volume Laterality Blood 05/31/2022 10:50 05/31/2022 AM EDT 11:03 AM EDT Resulting Agency Comment Spec In Lab Dominique Hinds MD CHEMISTRY ORDERABLES Performing Organization Address City/[facility]/ZIP [place] [address] (ABNORMAL) pro-Brain Natriuretic Peptide (05/31/2022 10:50 AM EDT) P athologist Signature ProBNP 1,077 (H) <=449 [place] X[place]O pg/mL [facility] Specimen Anatomical Collection Method Collection Time Receive d Time (Source) Location / / Volume Laterality Blood 05/31/2022 10:50 05/31/2022 AM EDT 11:03 AM EDT Resulting Agency Comment Spec In Lab Dominique Hinds MD CHEMISTRY ORDERABLES Performing Organization Address City/[facility]/ZIP [place] [address] Lipase (05/31/2022 10:50 AM EDT) P athologist Signature Lipase 41 0 - 60 [place] XIAO unit/L [facility] Specimen Anatomical Collection Method Collection Time Receive d Time (Source) Location / / Volume Laterality Blood Venous Draw / 05/31/2022 10:50 05/31/2022 Unknown AM EDT 11:11 AM EDT Resulting Agency Comment Spec In Lab Zain Champion MD CHEMISTRY ORDERABLES Performing Organization Address City/[facility]/ZIP [place] [address] (ABNORMAL) Hepatic Function Panel (05/31/2022 10:50 AM EDT) Analysis Performed At Patho logist Time Signature Total Protein 6.4 6.1 - 8.0 [facility] X[facility]O g/dL [facility] Albumin 4.1 3.2 - 5.2 [facility] g/dL [facility] AST 24 0 - 39 [facility] unit/L [facility] ALT 44 0 - 55 [facility] unit/L [facility] Alk Phos 63 40 - 130 [place] [place] unit/L [facility] Total <0.2 (L) 0.2 - 1.3 [facility] Bilirubin mg/dL [facility] Bili, Direct 0.1 0.0 - 0.3 [facility] mg[facility]dL [facility] Specimen Anatomical Collection Method Collection Time Receive d Time (Source) Location / / Volume Laterality Blood Venous Draw / 05/31/2022 10:50 05/31/2022 Unknown AM EDT 11:11 AM EDT Resulting Agency Comment Spec In Lab Zain Champion MD CHEMISTRY ORDERABLES Performing Organization Address City/State/[place] [address] EKG 12 Lead (05/31/2022 10:11 AM EDT)Only the most recent of3 resultswithin the time period is included. Component Value Ref Range Test Analysis Performed Pathologis t Method Time At Signature Ventricular rate 106 BPM MUSE SYSTEM QRS Duration 122 ms MUSE SYSTEM Q-T Interval 368 ms MUSE SYSTEM QTC Calculated 488 ms MUSE SYSTEM (Bezet) Calculated R [place] -43 degrees MUSE SYSTEM Calculated T [place] 109 degrees MUSE SYSTEM INTERPRETATION Atrial fibrillation with rapid ventricular response MUSE SYSTEM Left axis deviation Minimal voltage criteria for LVH, may be normal variant ( [place] product ) Cannot rule out Anterior infarct , age undetermined Abnormal ECG When compared with ECG of 20-MAY-2022 19:04, No significant change was found I personally reviewed the tracing and edited the fellows int erpretation Confirmed by fellow MD Mike, [place] ([id number]) on 022 8:36:21 PM Confirmed by MD KENDRICK, ABBY ([id number]) on 06/03/2022 5:04:32 PM Specimen Anatomical Collection Method Collection Time Receive d Time (Source) Location / / Volume Laterality 05/31/2022 10:11 06/03/2022 5:04 AM EDT PM EDT Dominique Hinds MD ECG ORDERABLES Performing Organization Address City/State/ZIP Code Phon e Number MUSE SYSTEM [place] 48 Hrs-15 Days (05/21/2022 4:33 PM EDT) Specimen (Source) Anatomical Location Collection Method / Collectio n Time Received Time / Laterality Volume Narrative Abundio Kulkarni MD - 05/31/2022 1:11 P M EDT Indication: Paroxysmal atrial fibrillation Analysis time 7 days Maximum heart rate 185 bpm Minimum heart rate 55 bpm Average heart rate 99 bpm Permanent atrial fibrillation was presen t. ??Heart rates ranged from 55 to 185 bpm with an average of 99 bpm. ??Iso lated ventricular ectopy was present. ??Rates of the atrial fibrillat ion trended toward more rapid. Impression: 1. ??Continuous atrial fibrillation with episodes of rapid ventricular response Fito Summers MD CARDIAC SERVICES ORDERABLES CARDIAC CATHETERIZATION (05/20/2022 6:45 PM EDT) Specimen (Source) Anatomical Location Collection Method / Collectio n Time Received Time / Laterality Volume Narrative CARDIOMAC SYSTEM - 05/20/2022 7:09 PM ED T ?[facility] ? Cardiac Cathete rization/Intervention Report ? Patient Name: Koko Bah. ? Procedure Date: 05/20/2022 ? A #: [id number] ? Primary Physician: Abundio Servin ? Case #: [id number] ? File Name: [id number] ? Catheterization Order Number: [id number] ? [facility] ? Final Report [place], [place] ? Patient Name: ? Koko Sullivan. Klarissa uson ? ID#: ?[id number] ? : ?1940 ? Procedure Date: ? May 20, 2022 ?Case #: ? [id number] ? Room: ? 1 ? Case Physician: ? Abundio roldan MAlmitaD. ? Start: ?17:16 ? Admission: ??05/15/2022 ? Referring Physician: ??Julee Malik ? Procedures: ?* Coronary Angiography ?* Left Heart Catheterization ?* Coronary Ultrasound ?* Coronary Angioplasty ?* Coronary Stent Insertion ? History ?Koko Bah is a 81 year old man. He has hypertension. The ?patient's smoking status is Cur rent with Current - Some Days frequency, ?using cigarettes. He has hyperc holesterolemia managed with lipid therapy. ?The patient has a history of an ejection fraction less than or equal to ?35% and right ventricular failu re. He has a history of CHF. The CHF is ?NYHA Functional Class III, is n ewly diagnosed and is classified as ?Systolic. 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 He a lso has a history of peripheral vascular ?disease with critical limb isch emia. Prior to the initiation of this ?procedure, the patient was jose enrique gnated as ASA Class IV. The CSHA clinical ?frailty scale is 3: Managing We ll. ? Diagnostic Tests: ?Prior Coronary Angiography: ? Prior coronary angiograp hy was performed on 11/10/2000 and showed ? non-obstructive CAD. LV ejection fraction within 6 months is 28%. ?Electrocardiography: ? EKG was assessed by ECG. EKG was Abnormal. EKG showed new onset ? atrial fibrillation with heart rate 130. ?Medications Prior to Procedure: ? Angiotensin II Receptor Norma, Beta Norma and Statin. ? Indications for Diagnostic Cath: ?The priority of the diagnostic procedure was Urgent. 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 Chest pain symptom assessment was: ?Typical Angina. ? Technique: ?A 6 SLFr sheath was inserted in the right radial artery utilizing the ?Seldinger technique. The left c oronary artery was injected utilizing a ?4Fr TIG 4.0 catheter. A 4Fr TIG 4.0 catheter was used to inject the right ?coronary artery. Left ventricul ar pressure was performed utilizing a 4Fr ?TIG 4.0 catheter. Coronary summer oplasty and coronary stent insertion were ?performed and the equipment uti lized will be described in the ?intervention summary section. 4 ,500 units of heparin were administered. A ?total of 250cc of Iso-Ilda were opened, 189cc of Iso-Ilda were administered ?and 61cc of Iso-Ilda were wasted . Radiation: Fluoro time was 14.1 minutes, ?dose area product was 44,500 mG Ycm2 and air kerma was 752 mGY. See the ?case log for additional details . ?The patient received the follow ing medications prior to and during the ?procedure: ? Unfractionated Heparin a nd Clopidogrel. ? Hemodynamics: ?Left Heart Pressures ? Resting: ? Syst D iast ? EDP ?a ?v ? m ?Ao 83 ?47 ?59 ?LV 90 ?5 ? Coronary Angiography: ?Dominance: Right ?Left Main ? There was mild diffuse ( <=25% stenosis) disease of the entire vessel ? segment of the left main artery. ?Left Anterior Descending ? There was a 25% diffuse stenosis of the proximal segment of the left ? anterior descending priscilla ry (LAD). ?Left Circumflex ? There was a 70% stenosis of the mid segment of the left circumflex ? artery (LCX). ? There was a 90% diffuse stenosis of the ostial segment of the first ? obtuse marginal branch ( OM1) of the LCX. ??Distal flow was decreased ? (ALE Grade 1). ?Right Coronary Artery ? There was a 45% stenosis of the mid segment of the right coronary ? artery (RCA). ??The dist al segment of the RCA had 90% stenosis. ?Ramus ? There was mild diffuse ( <=25% stenosis) disease of the entire vessel ? segment of the ramus. ? Intravascular Imaging/Physiology: ?Intravascular Ultrasound was pe rformed in the ostial OM1 using a 6 Fr EBU ?3.5 guiding catheter and a 3.5 Fr [facility] [place] ST ??20 Mhz. ??Imaging ?was successful. ??Image quality was excellent. ??The ostial OM1 showed ?moderate diffuse atheroscleroti c plaque. ?Post Intervention: The stent wa s well expanded and apposed. ? Indication for Intervention: ?Coronary intervention was indic ated for primary therapy for an acute ?myocardial infarction. The prio rity for the procedure was Urgent. The ?NCDR indication for the procedu re was NSTE-ACS. LVEF within one week was ?28%. Syntax Score was Low. Init ial PCI was performed for multivessel ?disease. ? Intervention Summary: ?Left Circumflex Artery ? Mid 70% ? Angioplasty was performed on the 70% stenosis in the mid ? segment of the LCX. This was a de segun lesion. According to ? the ACC/AHA cla ssification system, this lesion was a type B1 ? moderate risk l esion. A guidewire was placed across this ? lesion. Vessel flow pre intervention was ALE 3. Lesion length ? was 10mm. ? Angioplasty was accomplished through a 6 Fr EBU 3.5 guide ? utilizing an EU PHORA 12 MM balloon with a maximum size of ? 2.50mm and a ma ximum inflation pressure of 12 atmospheres. ? The final outco me was defined as successful. The residual ? stenosis follow ing this intervention was 15%. The final ALE ? flow was 3. ?First Obtuse Marginal Branch of the LCX ? Ostial 90% ? Stent insertion was performed on the 90% stenosis in the ? ostial segment of the OM1. This was a de segun lesion. This ? lesion was jose enrique gnated a type C high risk lesion based on ? ACC/AHA classif ication system. Primary prevention of ? restenosis was the indication for stent insertion. This was ? the culprit les ion. A guidewire was placed across this lesion. ? Vessel flow pre intervention was ALE 1. Lesion length was ? 25mm. The lesio n involves a bifurcation with the LCX. This ? bifurcation les ion was treated with a single stent, side ? branch dilated post stent technique and a final kissing ? balloon post-di lation. ? Stent insertion was accomplished through a 6 Fr. EBU 3.5 ? guide. ??The merritt ojeda was predilated with a 2.00mm EUPHORA 15 MM ? balloon with a maximum inflation pressure of 12 atmospheres. ? A premounted 2. 75 x 30 mm Rudy [place] (AMPARO) was deployed ? with a maximum inflation pressure of 12 atmospheres. ? Following stent deployment, the lesion was dilated using a ? 3.50mm NC EUPHO RA 08 MM balloon with a maximum inflation ? pressure of 9 a tmospheres. ? The final outco me was defined as successful. A coronary ? arteriolar vaso dilator was administered as part of the ? intervention on this lesion. There was no residual stenosis ? following this intervention. The final ALE flow was 3. ? Vascular Access: ?Vascular Access Management: ? Mechanical Compression o f the right radial artery access site was ? performed. ? Dual Antiplatelet (DAPT) Recommendations : ?Drug eluting stent (AMPARO) insert ed. ?P2Y12 Loading dose Clopidogrel 600 mg PO given in lab. ?Recommended anti-platelet/anti- thrombotic regimen: ?Start aspirin 81 mg daily now a nd continue for 7 days then stop. Restart ?aspirin 81 mg daily in 12 month s and continue unless contraindicated. ?Start clopidogrel 75 mg daily n ow and continue for 12 months then stop. ?Start apixaban 5 mg twice daily now and continue for indefinitely. ?These recommendations are made at the time of the intervention. Patient ?and provider preferences or a c hanging clinical situation may require ?modification of this regimen. C onsult [facility] Interventional Cardiology for ?questions. ?The 1 year bleeding risk as felicitas culated by the PRECISE DAPT score is ?Moderate risk. ? Conclusions: ?* Two vessel coronary artery di sease (LCX and RCA) ?* Successful stent insertion of the ostial OM1 lesion ?* Successful angioplasty of the mid LCX lesion ?* See Dual Antiplatelet (DAPT) Recommendations above ?* COnsider PCI of distal RCA if indicated. ? Complications/Events: ?The patient had no complication s during these procedures. ?The attending physician was presen t for the entire procedure. ?Dr. Abundio Servin M.D. was pre sent during the moderate sedation ?intraservice time as documented by the sedation nurse. ??Case time = 01:19. ?Dr. Abundio Servin M.D. perform ed the coronary angiography, left heart ?catheterization, IVUS # coronary, angioplasty-coronary and stent ?insertion-coronary. ? Abundio Servin M.D. ? Electronically Signed by: Abundio ruiz M.D. ? Report Finalized: 05/20/2022 ??19:01 ? Abundio Servin MD CARDIAC CATH ORDERABLES Performing Organization Address City/State/ZIP Code Phon e Number CARDIOMAC SYSTEM POCT Glucose (05/20/2022 5:42 PM EDT) P athologist Signature POC Glucose 123 65 - 199 [place] mg/dL [facility] Comment: Supplemental ranges: <140 mg/dL before meals <180 mg/dL all other times of the day Specimen Anatomical Collection Method Collection Time Receive d Time (Source) Location / / Volume Laterality Blood 05/20/2022 5:42 PM 2 5:42 EDT PM EDT Fito Summers MD POINT OF CARE TEST ORDERABLE S Performing Organization Address City/State/[place] [address] (ABNORMAL) BMP w/fasting Glucose (05/20/2022 10:50 AM EDT) athologist Signature Glucose 152 (H) 65 - 99 [facility] Fasting mg/dL [facility] Comment: ?Fasting* Glucose Interpretive C riteria Normal ?65-99 mg/dL Impaired Fasting glucose ?100-125 mg/dL Consistent with Diabetes Mellitus ? >or= 126 mg/dL *Fasting is defined as no caloric intake for at least 8 hours In the absence of unequivocal hypergly cemia a plasma glucose value of >or= 126 mg/dL should be repeated on a subseq uent day. Diagnosis and Classification of Diabetes Mellitus, Position Statement from the [place] [employer]. ??Diabete s Care, Volume 33, Supplement 1, Nov 2009 BUN 11 10 - 20 mg/dL [facility] Creatinine 0.63 (L) 0.80 - 1.50 mg/dL [facility] Sodium 137 135 - 145 mmol/L [facility] Potassium 3.6 3.5 - 5.0 mmol/L [facility] Comment: Please note: ??Patients with WBC >100,00 0 may have falsely elevated Potassium levels. ??For accurate Potassium quantif ication in these patients send serum separator tube (gold top) for subsequent determinations. ??Contact the Clinical Chemistry Laboratory if there are any qu estions. Chloride 103 98 - 107 mmol/L [facility] CO2 24 22 - 31 mmol/L [facility] Anion Gap 10 5 - 15 mmol/L [facility] Calcium 8.7 8.5 - 10.5 mg/dL [facility] [place] [facility] Estimated GFR 97 >=60 mL/min/1.73 m?? [facility] Comment: This patient's estimated GFR was calcula dede using the 2020 CKD-EPI equation. The estimated GFR can vary from the allison ured GFR by up to 30% in the absence of rapidly changing kidney function. Assess ment of the estimated GFR is not appropriate when creatinine concentratio ns are rapidly changing. For clinical situations in which a more precise estim ate of GFR is necessary, consider alternative methods of GFR estimation samano ch as a 24-hour urine creatinine clearance. Assignment of CKD stage 1-5 for patients with an eGFR near the transition point between stages may be based on clinical assessment of muscle mass and symptoms in addition to eGFR. Specimen Anatomical Collection Method Collection Time Receive d Time (Source) Location / / Volume Laterality Blood 05/20/2022 10:50 05/20/2022 AM EDT 11:18 AM EDT Resulting Agency Comment Spec In Lab Fito Summers MD CHEMISTRY ORDERABLES Performing Organization Address City/State/ZIP [place] [address] TSH (05/18/2022 8:00 PM EDT) P athologist Signature TSH 2.27 0.27 - 4.20 [facility] mcIU/mL [facility] Comment: Reference Interval (mcIU/mL): Females: ??First Trimester: 0.23-3.88 ??Second Trimester: 0.22-3.90 ??Third Trimester: 0.44-4.66 Specimen Anatomical Collection Method Collection Time Receive d Time (Source) Location / / Volume Laterality Blood 05/18/2022 8:00 PM 8:06 EDT PM EDT Resulting Agency Comment Spec In Lab Fito Summers MD CHEMISTRY ORDERABLES Performing Organization Address City/State/ZIP Code [place] [address] (ABNORMAL) Urinalysis Microscopic Exam (05/16/2022 11:15 PM EDT) P athologist Signature RBC UA 8 (H) 0 - 3 /HPF [facility] WBC UA 2 0 - 3 /HPF [facility] Specimen Anatomical Collection Method Collection Time Receive d Time (Source) Location / / Volume Laterality Clean Catch 05/16/2022 11:15 05/16/2022 Urine PM EDT 11:30 PM EDT Resulting Agency Comment Spec In Lab Barbie Patiño MD URINE ORDERABLES Performing Organization Address City/State/[place] [address] XR Chest One View (05/16/2022 9:14 PM EDT) Anatomical Region Laterality Modality Chest N/A Digital Radiography Specimen (Source) Anatomical Location Collection Method / Collectio n Time Received Time / Laterality Volume Impressions 05/16/2022 9:27 PM EDT Pulmonary vascular congestion versus atypical interstitial infection or viral pneumonia. Thank you for letting us participate in the care of this patient. ??If you are a health care provider and have any questi ons regarding this report, please contact the number below. ??For patients who have questions please contact the health director critical care that requested your imaging first. ? Narrative 05/16/2022 9:27 PM EDT EXAMINATION: XR CHEST ONE VIEW CLINICAL HISTORY: febrile and tachy TECHNIQUE: 1 view of the chest COMPARISON: May 15, 2022 FINDINGS: Progression of groundglass opacities at the lower lobes. Progression of diffuse bronchovascular haziness and pulmonary v ascular redistribution. No radiographic evident pleural effusion. No pneumothora x. Cardiomegaly. No displaced rib fracture. Procedure Note Tiffanie George MD - 05/16/2022 EXAMINATION: XR CHEST ONE VIEW CLINICAL HISTORY: febrile and tachy TECHNIQUE: 1 view of the chest COMPARISON: May 15, 2022 FINDINGS: Progression of groundglass opacities at the lower lobes. Progression of diffuse bronchovascular haziness and pulmonary v ascular redistribution. No radiographic evident pleural effusion. No pneumothora x. Cardiomegaly. No displaced rib fracture. IMPRESSION Pulmonary vascular congestion versus aty pical interstitial infection or viral pneumonia. Thank you for letting us participate in the care of this patient. If you are a health care provider and have any questi ons regarding this report, please contact the number below. For patients w ho have questions please contact the health director critical care that requested your imaging first. Fito Summers MD IMG DX ORDERABLES ECHOCARDIOGRAM COMPLETE W CONTRAST (05/16/2022 12:49 PM EDT) P athologist Signature EF 28 HEARTLAB SYSTEM Specimen (Source) Anatomical Collection Method Collection Time Re ceived Time Location / / Volume Laterality 05/16/2022 11:22 AM EDT Narrative HEARTLAB SYSTEM - 05/16/2022 1:54 PM EDT ?[facility] ?[address] ? [place] [address] ?Voice: ?Fax: ? Echocardiogram Report Name: KOKO BAH ?Study Date: 05/16/2022 11:22 AM ? Patient Location: [facility] 0[address] B : 1940 ? Height: 67.5 in ? Account: [id number] Age: 81 yrs ? Weight: 176 lb Gender: Male ?BSA: 1.9 m2 Ordering Physician: FITO SUMMERS Referring Physician: MALI FLORIAN Performed By: Jolene Bernard RDCS Exam Location: [facility]. Interpretation Summary Left ventricle is mildly dilated. 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 The left ventricular ejection f raction is 28% by Gaxiola's biplane. Right ventricular systolic function is m ildly decreased. There is moderate aortic stenosis. The m campos gradient across the aortic valve is 13 mmHg. JUVENAL 1.2 cm2 S/P MV repair for prolapse. There is mil d mitral regurgitation. Compared with the prior TTE of 2, moderate and LV systolic dysfunction are new. Procedure Complete-[id number]. Image enhancement Optiso n was used for both Doppler and ventricular definition. Suboptimal quali ty. The rhythm is atrial fibrillation. Left Ventricle Left ventricle is mildly dilated. Mildly increased thickness of the basal septum with no obstruction to LV outflow. Left ventricular systolic function is severely reduced. The left ventricular ejection f raction is 28% by Gaxiola's biplane. There are segmental wall motion abnormalities. Right Ventricle The right ventricle is of normal size. R ight ventricular systolic function is mildly decreased. Left Atrium The left atrium is moderately dilated. Right Atrium The right atrium is mildly dilated. Aortic Valve The aortic valve is tricuspid. The aorti c valve is moderately thickened. The aortic valve is moderately calcified. Th e aortic leaflet excursion is moderately reduced. There is moderate aortic stenos is. The peak instantaneous gradient across the aortic valve is 18 mmHg. The mean gr adient across the aortic valve is 13 mmHg. JUVENAL 1.2 cm2. There is no aortic regurgit ation. Mitral Valve Mild thickening of the mitral leaflets. The estimated mean gradient across the mitral valve is 4 mmHg. Heart rate: 88 b eats per minute. There is mild mitral regurgitation. S/P MV repair for prolaps e. Tricuspid Valve The tricuspid valve is structurally norm al. There is mild tricuspid regurgitation. Pulmonic Valve The pulmonic valve appears to be structu rally and functionally normal. Great Arteries The aortic root at the level of the sinu ses of Valsalva is mildly dilated. The ascending aorta is mildly dilated. No ab normalities of the pulmonary artery are identified. Venous Inferior vena cava is dilated. Inferior vena cava collapse greater than 50% with respiration. Hemodynamics The peak right ventricular systolic pres sure is 31 mmHg. The estimated right atrial pressure is 8mmHg. Unable to asse ss diastolic function. Ejection Fraction ?2D Measurem ents ? Volumes EF(MOD-bp): 27.7 % ?IVSd: 1.3 cm ? LAV(MOD- bp) Indexed: ?L VIDd: 5.7 cm ?L VIDs: 4.6 cm ?48.6 ml/m2 ?L VPWd: 0.97 cm ? RA A4Cs_phl: 19.6 cm2 ?L V mass(C)d: 269.4 grams ? EDV (MOD-bp) Index: 62.6 ? ESV (MOD-bp) Index: 45.3 ?L V mass(C)dI: 139.5 grams/m2 ?? SV(LVOT): 50.4 ml ?A o root diam: 3.9 cm ?A o root diam index: 2.0 ?SI(LVOT): 26.1 ml/m2 ?a sc Aorta Diam: 3.8 cm ?L VOT diam: 2.2 cm ?T APSE_phl: 1.4 cm Doppler TR max agueda: 240.5 cm/sec RVSP(TR): 31.2 mmHg Ao V2 VTI: 43.4 cm Ao valve max: 18.1 mmHg Ao valve mean: 12.8 mmHg JUVENAL(I,D): 1.2 cm2 Dimensionless index Aov: 0.31 JUVENAL Planimetery: 1.3 cm2 MV mean P.8 mmHg I ?WMSI = 2.25 ? % Normal = 0 ?Segments ??Size X - Cannot ?? 1 - Normal ?? 2 - ? 3 - Akinetic 4 - ?1-2 ? small Interpret ? Hypoki netic ?Dyskinetic ?? 3-5 ? moderate 5 - ? 6-14 ?large Aneurysmal ?15-16 ?? diffuse Procedure Note Gladys Jaime MD - 05/16/2022Formatti ng of this note might [place] [address] Voice: Fax: Echocardiogram Report Name: KOKO BAH Study Date: 05/2022 11:22 AM Patient Location: [address] [place] [address] : 1940 Height: 67.5 in Account: [id number] Age: 81 yrs Weight: 176 lb Gender: Male BSA: 1.9 m2 Ordering Physician: FITO SUMMERS Referring Physician: MALI FLORIAN Performed By: Jolene Bernard LOLLY Exam Location: [facility]. Interpretation Summary Left ventricle is mildly dilated. 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 The left ventricular ejection f raction is 28% by Gaxiola's biplane. Right ventricular systolic function is m ildly decreased. There is moderate aortic stenosis. The m campos gradient across the aortic valve is 13 mmHg. JUVENAL 1.2 cm2 S/P MV repair for prolapse. There is mil d mitral regurgitation. Compared with the prior TTE of 2, moderate and LV systolic dysfunction are new. Procedure Complete-[id number]. Image enhancement Optiso n was used for both Doppler and ventricular definition. Suboptimal quali ty. The rhythm is atrial fibrillation. Left Ventricle Left ventricle is mildly dilated. Mildly increased thickness of the basal septum with no obstruction to LV outflow. Left ventricular systolic function is severely reduced. The left ventricular ejection f raction is 28% by Gaxiola's biplane. There are segmental wall motion abnormalities. Right Ventricle The right ventricle is of normal size. R ight ventricular systolic function is mildly decreased. Left Atrium The left atrium is moderately dilated. Right Atrium The right atrium is mildly dilated. Aortic Valve The aortic valve is tricuspid. The aorti c valve is moderately thickened. The aortic valve is moderately calcified. Th e aortic leaflet excursion is moderately reduced. There is moderate aortic stenos is. The peak instantaneous gradient across the aortic valve is 18 mmHg. The mean gr adient across the aortic valve is 13 mmHg. JUVENAL 1.2 cm2. There is no aortic regurgit ation. Mitral Valve Mild thickening of the mitral leaflets. The estimated mean gradient across the mitral valve is 4 mmHg. Heart rate: 88 b eats per minute. There is mild mitral regurgitation. S/P MV repair for prolaps e. Tricuspid Valve The tricuspid valve is structurally norm al. There is mild tricuspid regurgitation. Pulmonic Valve The pulmonic valve appears to be structu rally and functionally normal. Great Arteries The aortic root at the level of the sinu ses of Valsalva is mildly dilated. The ascending aorta is mildly dilated. No ab normalities of the pulmonary artery are identified. Venous Inferior vena cava is dilated. Inferior vena cava collapse greater than 50% with respiration. Hemodynamics The peak right ventricular systolic pres sure is 31 mmHg. The estimated right atrial pressure is 8mmHg. Unable to asse ss diastolic function. Ejection Fraction 2D Measurements Volume s EF(MOD-bp): 27.7 % IVSd: 1.3 cm LAV(MOD- bp) Indexed: LVIDd: 5.7 cm LVIDs: 4.6 cm 48.6 ml/m2 LVPWd: 0.97 cm RA A4Cs_phl: 19.6 cm2 LV mass(C)d: 269.4 grams EDV (MOD-bp) I ndex: 62.6 ESV (MOD-bp) Index: 45.3 LV mass(C)dI: 139.5 grams/m2 SV(LVOT): 50.4 ml Ao root diam: 3.9 cm Ao root diam index: 2.0 SI(LVOT): 26.1 ml/m2 asc Aorta Diam: 3.8 cm LVOT diam: 2.2 cm TAPSE_phl: 1.4 cm Doppler TR max agueda: 240.5 cm/sec RVSP(TR): 31.2 mmHg Ao V2 VTI: 43.4 cm Ao valve max: 18.1 mmHg Ao valve mean: 12.8 mmHg JUVENAL(I,D): 1.2 cm2 Dimensionless index Aov: 0.31 JUVENAL Planimetery: 1.3 cm2 MV mean P.8 mmHg I WMSI = 2.25 % Normal = 0 Segments Size X - Cannot 1 - Normal 2 - 3 - Akinetic 4 - 1-2 small Interpret Hypokinetic Dyskinetic 3-5 mod erate 5 - 6-14 large Aneurysmal 15-16 diffuse Fito Summers MD ECHO ORDERABLES Performing Organization Address City/State/ZIP Code Phon e Number HEARTLAB SYSTEM (ABNORMAL) BLOOD GAS 2 ARTERIAL (05/15/2022 3:33 PM EDT)Only the most recent of2 resultswithin the time period is included. Analysis Performed At Patho logist Time Signature pH Art 7.33 (L) 7.35 - [facility] 7.45 [facility] LAB[facility] pCO2 Art 41 35 - 45 [facility] LABORATORY pO2 Art 131 (H) 85 - 104 [facility] LABORATORY HCO3 Art 21.1 20.0 - [facility] 26.0 [facility] mmol/L [facility] LABORATORY BE Art -4.8 (L) -3.0 - 3.0 [facility] mmol/L [facility] Hgb Blood Gas 13.4 (L) 13.7 - [facility] 16.5 g/dL [facility] O2HB Art 96.9 94.0 - [facility] 97.0 % [facility] COHB Art 1.4 % [facility] Comment: Nonsmokers: 0.5-1.5% COHB Smokers: Variable, but usually less than 10% Toxic: 20-30% COHB Lethal: Greater than 60% COHB METHB Art 0.3 <=1.5 % [facility] Na Whole Blood 139 135 - 145 mmol/L [facility] K Whole Blood 3.8 3.5 - 5.0 mmol/L [facility] Comment: Please note: Patients with WBC >100,000 may have falsely elevated Potassium levels. Contact the Clinical Chemistry L aboratory if there are any questions. ICa Whole Blood 1.32 1.15 - 1.33 mmol/L [facility] Comment: Note: ??Total bilirubin higher than 20 m g/dL may lead to falsely low ionized calcium. CL Whole Blood 113 (H) 98 - 107 mmol/L [facility] Gluc Whole Bld 136 65 - 199 mg/dL [facility] Comment: Diabetes: >=200 mg/dL plus symp toms. Lactate WB 2.0 0.5 - 2.2 mmol/L [facility] Specimen Anatomical Collection Method Collection Time Receive d Time (Source) Location / / Volume Laterality Blood 05/15/2022 3:33 PM 3:[address] Jamel Torre MD CHEMISTRY ORDERABLES Performing Organization Address [facility] [place] [address] (ABNORMAL) APTT (05/15/2022 12:30 PM EDT) P athologist Signature PTT 76 (H) 25 - 37 sec [facility] Comment: The PTT is NOT appropriate for heparin m onitoring. Use the Anti-Xa level for heparin monitoring (HEP UFH) or LMWH mon itoring (HEP LMW). A PTT less than 37 seconds generally indicates adequate hem ostasis. Specimen Anatomical Collection Method Collection Time Receive d Time (Source) Location / / Volume Laterality Blood 05/15/2022 12:30 05/15/2022 1:00 PM EDT PM EDT Resulting Agency Comment Spec In Lab Jhonny Morales DO HEMATOLOGY ORDERABLES Performing Organization Address City/[facility]/ZIP [facility] [place] [address] (ABNORMAL) Prothrombin Time (05/15/2022 12:30 PM EDT) P athologist Signature PT 12.9 (H) 9.4 - 12.5 [facility] LABORATORY INR 1.1 [facility] Comment: An INR <2.0 indicates adequate procoagul ant activity for hemostasis in most patients without underlying bleeding dis orders, though the INR may not adequately reflect hemostatic capacity i n patients with liver disease and synthetic impairment. The recommended ta rget INR range for therapeutic anticoagulation is 2.0 ? 3.0 for most applications, though lower and higher ranges may be appropriate depending on c linical circumstances. Specimen Anatomical Collection Method Collection Time Receive d Time (Source) Location / / Volume Laterality Blood 05/15/2022 12:30 05/15/2022 1:00 PM EDT PM EDT Resulting Agency Comment Spec In Lab Jhonny Morales DO HEMATOLOGY ORDERABLES Performing Organization Address City/State/ZIP Code Phon e Number [address] Gold Tube HOLD (05/15/2022 12:20 PM EDT) athologist Signature Gold Hold Sample in [facility]. [facility] Specimen Anatomical Collection Method Collection Time Receive d Time (Source) Location / / Volume Laterality Blood No Charge / 05/15/2022 12:20 05/15/2022 Unknown PM EDT 12:20 PM EDT Lc TRIPP CHEMISTRY ORDERABLES Performing Organization Address City/[facility]/ZIP Code Phon e Number [address] CK (05/15/2022 12:00 PM EDT) athologist Signature CK, Total 87 0 - 200 [facility] unit/L [facility] Specimen Anatomical Collection Method Collection Time Receive d Time (Source) Location / / Volume Laterality Blood Venous Draw / 05/15/2022 12:00 05/15/2022 Unknown PM EDT 12:19 PM EDT Resulting Agency Comment Spec In Lab Fito Summers MD CHEMISTRY ORDERABLES Performing Organization Address City/[facility]/ZIP Code Phon e Number [address] Film Library- Storage Only CT Abdomen (05/15/2022 9:32 AM EDT) Specimen (Source) Anatomical Location Collection Method / Collectio n Time Received Time / Laterality Volume Narrative DH RAD - 05/15/2022 9:32 AM EDT This exam is auto-finalizing. It's purpo se is for storage only. Matt Branham MD IMG FILM LIBRARY ORDERABLES Performing Organization Address City/State/ZIP Code Phon e Number JOSE ALEJANDRO Garcia [place] Film Library- Storage Only DX Chest (05/15/2022 9:31 AM EDT) Specimen (Source) Anatomical Location Collection Method / Collectio n Time Received Time / Laterality Volume Narrative JOSE ALEJANDRO RAD - 05/15/2022 9:31 AM EDT This exam is auto-finalizing. It's purpo se is for storage only. Matt Branham MD IM FILM LIBRARY ORDERABLES Performing Organization Address City/State/ZIP Code Phon e Number JOSE ALEJANDRO RAD JOSE ALEJANDRO [place] from Last 3 Months Insurance Payer Benefit Plan / Subscriber ID Effective Phone Address T ype Group Dates MEDICARE MEDICARE PART A [id number] 2007-Pres [id number] [facility] [place] [phone] [facility] [id number] 2007-Pres [phone] [address] [facility] [address] [place] [address] (Home) [place] [address] Advance Directives Latest Code Status on File Code Status Date Activated Date Inactivated Comments Attempt Cardiopulmonary Resuscitation - 05/31/2022 7:18 PM 022 5:02 PM Inpatient Code Status decision made by: Patient Attempt Cardiopulmonary Resuscitation - 05/15/2022 5:15 PM 05/21/20 22 5:49 PM Inpatient Code Status decision made by: Patient Attempt Cardiopulmonary Resuscitation - 10/25/2020 7:10 AM 10/26 4:43 AM Inpatient Code Status decision made by: Patient Full Code 07/20/2019 9:17 AM 07/21/2019 4:45 AM Does patient have capacity to make decision: Yes Care Teams Installer [employer]semblies Relationship Specialty Start Date End Date Abby Das MD PCP - General 10/02/[address] [place] [address] [place] [phone] (work)
--- OUTSIDE RECORDS SUMMARY | 2022-06-23 00:17 | XMS_ITS | Encounter Summary ---
:1940 [place] [address] Care Team Providers Name Role Phone Bobby Das MD Primary Care Provider Reason for Referral Diagnostic Test (Routine) - Closed Specialty Diagnoses / Procedures Referred By Contact Refer red To Contact Cardiology Diagnoses Paroxysmal atrial fibrillation Nasrin Parra PA [facility] Non-Inv Card Lab Procedures Ziopatch 48 Hrs-15 Days [facility] VASCULAR SURGERY [place], [place] [id number] [place] [phone] Fax: Referral ID Status Reason Start Date Expiration Date Visits V isits Requested Authorized [id number] Closed Specialty 05/21/2022 10/21/2022 1 1 Service Requested Reason for Visit Auth/Cert Specialty Diagnoses / Procedures Referred By Contact Refer red To Contact Diagnoses Limb ischemia LLE thrombus Fito Summers MD [facility] [place] [address] Referral ID Status Reason Start Date Expiration Date Visits Requ ested Visits Authorized [id number] 1 1 Encounter Details Date Type Department Care Team Description 05/21/2022 Hospital Encounter Non-Invasive Paroxysma l atrial Cardiology [place] [phone] Social History Tobacco Use Types Packs/Day Years Used Date Current Some Day Smoker Cigarettes 0.5 50 Smokeless Tobacco: Never Used Alcohol Use Standard Drinks/Week Comments Yes 42 (1 standard drink = 0.6 oz pure alcoh ol) Sex Assigned at Date Recorded Not on file documented as of this encounter Medications at Time of Discharge Medication Sig Dispensed Refills Start Date End Date acetaminophen (Tylenol) 325 mg Take 2 tablets 30 tablet 1 0 05/21/2022 Tablet by mouth every 6 hours as needed for Pain. clopidogreL (Plavix) 75 mg Take 1 tablet 90 tablet 3 2021 Tablet by mouth daily. metoprolol succinate XL Take 1 tablet 30 tablet 12 2 (Toprol-XL) 50 mg Tablet by mouth daily. Sustained Release 24 hr pantoprazole EC (Protonix) 40 Take 1 tablet 90 tablet 3 mg Tablet, Delayed Release by mouth daily. (E.C.) fluticasone propionate 1 spray by Each 0 04/12/20 21 (FLONASE) 50 mcg/actuation Nare route [place], Suspension daily as needed. fluorouraciL (EFUDEX) 5 % daily. 0 04/12/2021 Cream ascorbic acid, vitamin C, Take 1,000 mg 0 020 (VITAMIN C) 1,000 mg Tablet by mouth daily. sildenafiL (VIAGRA) 100 mg Take 100 mg by 0 Tablet mouth as needed for Erectile Dysfunction. carboxymethylcellulose Apply to eye 3 0 (REFRESH PLUS) 0.5 % times daily as Dropperette needed. calcium citrate (CALCITRATE) Take 1 tablet 0 200 mg (950 mg) Tablet by mouth daily. tamsulosin (FLOMAX) 0.4 mg Take 0.4 mg by 0 Capsule mouth daily. CRESTOR 40 mg Tablet Take 40 mg by 0 09/13/2016 mouth daily. MULTIVITAMIN (MULTIPLE VITAMIN Take 1 tablet 0 ORAL) by mouth daily. valsartan (Diovan) 40 mg Take 1 tablet 60 tablet 1 05/21/20 22 06/02/2022 Tablet by mouth 2 times daily. aspirin EC 81 mg Tablet, Take 1 tablet 30 tablet 0 05/22/20 22 06/02/2022 Delayed Release (E.C.) by mouth daily for 30 days. dapagliflozin (Farxiga) 5 mg Take 1 tablet 30 tablet 0 05/1006/13/2022 Tablet by mouth daily. rivaroxaban (Xarelto) 20 mg Take 1 tablet 30 tablet 11 05/1706/13/2022 Tablet by mouth daily. documented as of this encounter Plan of Treatment Upcoming Encounters Date Type Specialty Care Team Description 07/02/2022 Office Visit Vascular Surgery Jing Ghosh APRN [facility] VASCULAR SURGERY [place], [place] [address] (Wo rk) 09/02/2022 Clinical Support Dermatology Thai Lynn MD [facility] DR JENNY BILLY-DERMAT [place], [place] [address] (Wo rk) 09/02/2022 Procedure visit Dermatology Jace Lynn MD [facility] DR JENNY BILLY[place]DER[facility] [place], [place] [address] (Wo rk) 09/05/2022 Appointment Cardiology Trinity Reid MD [facility] CARDIOLOGY [place], [place] [address] (Wo rk) 09/05/2022 Office Visit Cardiology Trinity Reid MD [facility] CARDIOLOGY [place], [place] [address] (Wo rk) documented as of this encounter Procedures Procedure Name Priority Date/Time Associated Diagnosis Comme nts ZIOPATCH 48 HRS-15 Routine 05/21/2022 4:33 PM Paroxysmal atria l Results for this DAYS EDT fibrillation procedure are i n the results section. documented in this encounter Results Ziopatch 48 Hrs-15 Days (05/21/2022 4:33 PM [...] response Fito Summers MD CARDIAC SERVICES ORDERABLES documented in this encounter Visit Diagnoses Diagnosis Paroxysmal atrial fibrillation Atrial fibrillation documented in this encounter Care Teams Weblogic Administrator Relationship Specialty Start Date End Date Bobby Das MD PCP - General 10/02/[address] [place] [address] [place] [phone] documented as of this encounter
--- OUTSIDE RECORDS SUMMARY | 2022-06-23 00:17 | XMS_ITS | Encounter Summary ---
:1940 Author Organization [facility] Address [facility] [place] [address] Care Team Providers Name Role Phone Bobby Das MD Primary Care Provider Encounter Details Date Type Department Care Team Description 05/31/2022 Office Visit Vascular Surgery at [facility]; [facility] [employer]NAGER Atrial fibrillation, unspecified type; [facility] SOB (shortness of breath) Drive [facility] [place] VASCULAR SURGERY [id number] [place] [id number] [phone] Social History Tobacco Use Types Packs/Day Years Used Date Former Smoker Cigarettes 0.5 50 Smokeless Tobacco: Never Used Alcohol Use Standard Drinks/Week Comments Yes 42 (1 standard drink = 0.6 oz pure alcoh ol) Sex Assigned at Date Recorded Not on file documented as of this encounter Last Filed Vital Signs Vital Sign Reading Time Taken Comments Blood Pressure 99/60 05/31/2022 9:53 AM EDT Pulse 76 05/31/2022 9:42 AM EDT Temperature - - Respiratory Rate - - Oxygen Saturation - - Inhaled Oxygen Concentration - - Weight - - Height - - Body Mass Index - - documented in this encounter Progress Notes Jing Ghosh APRN - 05/31/2022 9:30 AM EDT Post op wound check Past Vascular Procedures 05/15/2022: Left common femoral transverse arteriotomy and primary repair; Thromboembolectomy of theSFA, profunda, and common femoral artery; Reperfusion venous drainage of 250cc; Left lower extremity4 compartment fasciotomies. (Columbo) 05/20/2022: Coronary angiography, L heart catheterization, coronary ultrasound, coronary angioplastymid LCX lesion, coronary stent insertion of ostial OM1 lesion. (Interventional cardiology). 81M w new onset Afib who presents in transfer from [facility] with acute limb ischemia of the LLE.??The patient had sudden pain starting at 630 this morning he presented [facility] where he was placed on heparin.??He describes waxing and waning motor and sensory symptoms however he feels like he had been sensory deficits which have slightly improved.?He now reports diminished but present sensation. ??He hasdecreased motor sensation. ?? He is a smoker of 1/2 pack/day, with no home oxygen or known COPD. He is a prediabetic without any medications. ??He does report a history of arm ischemia in which his arm turned blue after a cardiacprocedure for mitral valve replacement a number of years ago. ??At that time he underwent a surgery,during which thrombus was removed from the arm. ??His arm has baseline functioning. He has no history of bleeding, he does not take any blood thinners. He has not eaten since yesterday. ?? Hospital Course: On 05/15/22, patient was admitted to the vascular surgery service with ALI and emergently went to the OR for L GAS SINGER transverse arteriotomy and primary repair, thromboembolectomy of L SFA/PFA/GAS SINGER, reperfusion venous drainage for 250 cc, and LLE 4 compartment fasciotomies. In surgery, palpable femoral pulse proximal common femoral artery. Clamp site distal to the circumflex arteries. Profunda and SFA controlled individually. Acute thrombus removed. 3, 4, and 5F miryam embolectomy with negative passes x 2. Arteriotomy closed with interrupted 5-0 sutures. Reperfusion venous drainage of 250cc via the femoral vein. Palpable DP pulse. 4 compartment fasciotomy performed with no bulging of muscle, healthy mus zully.??He was re-admitted for post-operative monitoring. ?? Fasciotomy sites closed on POD 2 at bedside under local anestheia. On POD 2, patient was noted to have new onset A Fib and cardiology was engaged. TTE on POD1 revealed new moderate and LV systolic dysfunction with HFrEF. On POD5, patient underwent PCI with coronary angioplasty mid LCX lesion and coronary stent insertion of ostial OM1 lesion. Cardiology recommendations to continue Triple therapy for 1 month. At that time, ASA can be stopped and continue NOAC and Plavix for 1 year post-procedure. Continue metoprolol succinate and valsartan at discharge. Start Farxiga as well given no PAD. Ziopatchat discharge and follow-up in cardiology clinic in 1 month. Today C/o last few days of low BP, dizziness, lightheaded, feeling cold and this AM SOB. Denies fever, problems with leg or groin incision, Chest pain, TIA's PE General: NAD, appears well Neuro: Alert and oriented, motor sensory grossly intact Lungs: CTA Heart: irregular uncontrolled Afib Abd: Soft, NT, ND, no palpable pulsatile masses Extremity - [place], warm, no ulceration, brisk capillary refill, left calf edema left calf medial and lateral incision intact with windy. Left groin incisions intact with sutures removed No cellulitis. Vascular: R L Carotid 2/2 bruit (n) 2/2 bruit (n) Radial 2/2 2/2 Femoral 2/2 incision/2 Popliteal 0/2 0/2 DP 2/2 2/2 PT 2/2 edema/2 Assessment/Plan; 81 yo male s/p 05/15/2022: Left common femoral transverse arteriotomy and primary repair; Thromboembolectomy of the SFA, profunda, and common femoral artery; Reperfusion venous drainage of 250cc; Left lower extremity 4 compartment fasciotomies. (Melina). 05/20/2022: Coronary angiography, L heart catheterization, coronary ultrasound, coronary angioplastymid LCX lesion, coronary stent insertion of ostial OM1 lesion. (Interventional cardiology). Left groin incision intact sutures removed Left leg incision with windy remain intact No cellulitis. Uncontrolled Afib, SOB, hypotensive, dizzy. Code White called He was evaluated and taken to ER for further evaluation RTC 06/13/22 with studies and see Dr Summers. documented in this encounter Plan of Treatment Upcoming Encounters Date Type Specialty Care Team Description 07/02/2022 Office Visit Vascular Surgery Jing Ghosh APRN [facility] ER DR VASCULAR SURGERY [place], [place] [address] (Wo rk) 09/02/2022 Clinical Support Dermatology Thai Lynn MD [facility] DR JENNY [facility]ILL[facility]MAT [place], [place] [address] (Wo rk) 09/02/2022 Procedure visit Dermatology Jace Lynn MD [facility] DR JENNY [facility]ILL[facility] [place], [place] [address] (Wo rk) 09/05/2022 Appointment Cardiology Trinity Reid MD [facility] CARDIOLOGY [place], [place] [address] (Wo rk) 09/05/2022 Office Visit Cardiology Trinity Reid MD [facility] CARDIOLOGY [place], [place] [address] (Wo rk) documented as of this encounter Visit Diagnoses Diagnosis Dizzy Dizziness and giddiness Atrial fibrillation, unspecified type SOB (shortness of breath) Shortness of breath documented in this encounter Care Teams Immigration Case Worker Relationship Specialty Start Date End Date Bobby Das MD PCP - General 10/02/[address] [place] [address] [place] [id number] documented as of this encounter
--- OUTSIDE RECORDS SUMMARY | 2022-06-23 00:17 | XMS_ITS | Encounter Summary ---
:1940 Author Organization [facility] [place] [address] Care Team Providers Name Role Phone Bobby Das MD Primary Care Provider Encounter Details Date Type Department Care Team Description 05/28/2022 Telephone Vascular Surgery at [facility] Dominique Bolivar, [place] [phone] Social History Tobacco Use Types Packs/Day Years Used Date Current Some Day Smoker Cigarettes 0.5 50 Smokeless Tobacco: Never Used Alcohol Use Standard Drinks/Week Comments Yes 42 (1 standard drink = 0.6 oz pure alcoh ol) Sex Assigned at Date Recorded Not on file documented as of this encounter Miscellaneous Notes Telephone Encounter - Dominique Bolivar, RN - 05/28/2022 1:20 PM EDT This financial underwriter returned phone call due to 's concern with the patients low blood pressure. 05/15/2022: Left common femoral transverse arteriotomy and primary repair; Thromboembolectomy of theSFA, profunda, and common femoral artery; Reperfusion venous drainage of 250cc; Left lower extremity4 compartment fasciotomies. (Columbo) 05/20/2022: Coronary angiography, L heart catheterization, coronary ultrasound, coronary angioplastymid LCX lesion, coronary stent insertion of ostial OM1 lesion. (Interventional cardiology). States since yesterday his BP has been upper 70s-80s over 40-50s. States his typical BP is 110s/65. States today he said he was a little bit lightheaded. States his appetite is good and he drinks 3-4 quarts of water per day. States this morning she called his PCP who was out of office and was told by the RN to hold the morning dose of valsartan which she did. She was not given instructions as to what an acceptable BP valuewas in order to decide/if when valsartan could be resumed. Due to patient's cardiac history and symptoms of lightheadedness, this financial underwriter recommended the patient be evaluated. Discussed going to local ED ([facility]) where staff could also phone vascular and/or cardiac at D- for planning. The patient agreed to do this after he has lunch. documented in this encounter Plan of Treatment Upcoming Encounters Date Type Specialty Care Team Description 07/02/2022 Office Visit Vascular Surgery Jing Ghosh APRN [facility] DR VASCULAR SURGERY [place], [place] [address] (Wo rk) 09/02/2022 Clinical Support Dermatology Thai Lynn MD [facility] DR JENNY [facility]ILLY[facility]DERMAT [place], [place] [address] (Wo rk) 09/02/2022 Procedure visit Dermatology Jace Lynn MD [facility] DR JENNY [facility]ILLY[facility]DERMAT [place], [place] [address] (Wo rk) 09/05/2022 Appointment Cardiology Trinity Reid MD [facility] CARDIOLOGY [place], [place] [address] (Wo rk) 09/05/2022 Office Visit Cardiology Trinity Reid MD [facility] DR [address], [place] [address] (Wo rk) documented as of this encounter Visit Diagnoses Not on filedocumented in this encounter Care Teams [employer] Tm1 Developer Relationship Specialty Start Date End Date Bobby Das MD PCP - General 10/02/[address] [place] [address] [place] [address] documented as of this encounter
--- OUTSIDE RECORDS SUMMARY | 2022-06-23 00:17 | XMS_ITS | Encounter Summary ---
:1940 Author Organization [facility] [place] [address] Care Team Providers Name Role Phone Bobby Das MD Primary Care Provider Reason for Visit Reason Comments Dizziness Auth/Cert Specialty Diagnoses / Procedures Referred By Contact Refer red To Contact Diagnoses GIB (gastrointestinal bleeding) Abe [facility] [place] [address] Referral ID Status Reason Start Date Expiration Date Visits Requ ested Visits Authorized [id number] 1 1 Encounter Details Date Type Department Care Team Description 05/31/2022 Surgery Gastroenterology at [facility] Giovani Ponce, EGD, UPPER GI [facility] Bobby [place]ill[place] [address] [facility] [phone] [place] [address] Social History Tobacco Use Types Packs/Day Years Used Date Former Smoker Cigarettes 0.5 50 Smokeless Tobacco: Never Used Alcohol Use Standard Drinks/Week Comments Yes 42 (1 standard drink = 0.6 oz pure alcoh ol) Sex Assigned at Date Recorded Not on file documented as of this encounter Last Filed Vital Signs Vital Sign Reading Time Taken Comments Blood Pressure 115/48 05/31/2022 3:45 PM EDT Pulse 90 05/31/2022 3:45 PM EDT Temperature 36.6 ??C (97.9 ??F) 05/31/2022 3:33 PM EDT Respiratory Rate 14 05/31/2022 3:45 PM EDT Oxygen Saturation 98% 05/31/2022 3:45 PM EDT Inhaled Oxygen Concentration - - Weight 77.1 kg (170 lb) 05/31/2022 10:18 AM EDT Height 172.7 cm (5' 8) 05/31/2022 10:18 AM EDT Body Mass Index 25.85 05/31/2022 10:18 AM EDT documented in this encounter Discharge Summaries Arpita Valle MD - 06/02/2022 12:48 PM EDT Hospital Medicine - Discharge Summary Patient Name: Koko Zamora Patient Age: 81 y.o. Birthdate: 1940 Admit date: 05/31/2022 Discharge date and time: 06/02/2022 Attending Physician: John Jolley MD ID: Koko Zamora is a 81 y.o. male w/ PMH of mitral valve repair in 2000, prediabetes, tobacco use, alcohol use, prior GIB, recent hospitalization from 05/15 - 05/21 with acute limb ischemia LLE, where he had left common femoral transverse arteriotomy and primary repair, thromboembolectomy of the SFA, profunda and common femoral artery with 4 compartment fasciotomies. His course was complicated by new onset afib w/ RVR, and HFrEF (EF28%)??for which he had a left heart cath revealing CAD now s/pstent placement in OM1 and angioplasty mid LCx. He was placed on triple therapy with ASA, plavix andxarelto. Today he presented to vascular clinic for follow up where he was dizzy and lightheaded, found to have a hgb drop from 11 to 6.9. Follow-up Recommendations for Providers: Hemoglobin day of discharge was 8.7 #Diaz Med Changes: -- ASA 81 mg discontinued -- Valsartan 40 mg twice daily was discontinued due to hypotension during the hospitalization, please consider reinitiation when hemodynamically appropriate --Plavix 75 mg was continued -- Rivaroxaban 20 mg daily was continued (consider transitioning to apixaban for lower bleeding riskpending insurance approval as an outpatient) #Lab checks -- Recommend repeating CBC within 1 week of discharge to trend hemoglobin --Patient has scheduled follow-up with both vascular surgery and cardiology Discharge Diagnoses (Hospital Problems) and Secondary Diagnoses (Chronic Problems): Active Hospital Problems Diagnosis ??? GIB (gastrointestinal bleeding) Resolved Hospital Problems No resolved problems to display. Operations/Major Procedures: --EGD on 05/31/2022 History of Presentation: Koko Zamora is a 81 y.o. male w/ PMH of mitral valve repair in 2000, prediabetes, tobacco use,alcohol use, prior GIB, recent hospitalization from 05/15 - 05/21 with acute limb ischemia LLE, where he had left common femoral transverse arteriotomy and primary repair, thromboembolectomy of the SFA, profunda and common femoral artery with 4 compartment fasciotomies. His course was complicated by new onset afib w/ RVR, and HFrEF (EF28%) for which he had a left heart cath revealing CAD now s/p stent placement in OM1 and angioplasty mid LCx. He was placed on triple therapy with ASA, plavix and xarelto. Today he presented to vascular clinic for follow up where he was dizzy and lightheaded, found tohave a hgb drop from 11 to 6.9. ?? Patient was in endoscopy suit at time of admission, so history was gathered by chart review. ?? He had previously been doing well since discharged until this Friday when he started to have CHAMBERS, fatigue and lightheadedness. He denied palpitations, chest pain, syncope or falls. He reports being compliant with all medication, but had been taking his Losartan only once a day due to low blood pressures. He denied having any issues at incision sites. In the ED he was found to be in Afib with RVR with rates in the low 100s. Hypotension with systolics as low as 80s. Labs were significant for a hgb drop to 6.9 (last 11.8 a week ago). pBNP 1000 (no prior's), negative troponin. ?? GI was consulted, where he revealed he had a prior significant GI bleed 20 years ago while on an aspirin regimen. He also reported that since discharge he gets cramping when he tries to go to the bathroom and has noted dark, solid stools with straining yesterday. ?? He received 1U pRBCs and started on PPI. GI is suspicious for an upper bleed in the setting of triple therapy and symptoms. He was taken to directly to the endoscopy suite for EGD ?? Hospital Course: Koko was admitted to hospital medicine on 05/31/2022 and discharged home on 06/02/22 Problem Based Plan: #Acute blood loss anemia #upper GI bleed Patient presented with dyspnea on exertion, lightheadedness and dizziness; found to have acute bloodloss anemia in the setting of triple therapy from recent hospitalization for left lower extremity arterial clot, A. fib and ischemic cardiomyopathy. In the emergency room hemoglobin was 6.9, he was transfused 1 unit of packed red blood cells. He was urgently taken to endoscopy suite where he was foundto have 2 angioectasias in the duodenum, both of which were cauterized. His initially started on high-dose PPI, then transition to oral. By time of discharge he was tolerating a regular diet and hemoglobin had stabilized (8.7 at time of discharge). Due to high risk of clotting and recent cardiac stents he was continued on anticoagulation, see details below #CAD s/p stenting recently #HFrEF LVEF 28% #Afib w/ RVR #Hx of Recent LLE ischemia The patient had recent cardiac stents put in 05/20 and recent embolectomy on 05/15 for arterial clot inthe left lower extremity in the setting of new diagnosis A. fib. Just prior to this admission his Zio patch returned showing permanent A. fib as well. In that setting he is extremely high risk to be off of his antiplatelets and anticoagulation. Risk-benefit conversations were had between GI and cardiology, ultimately decided to continue Plavix and home DOAC, but discontinuation of aspirin. Of note cardiology did recommend to switch home Xarelto to apixaban however due to insurance purposes he was continued on Xarelto and asked to follow-up on this in outpatient setting. Important Studies and Lab Data: Recent Labs 06/02/22 0820 06/01/22 1929 06/01/22 0556 06/01/22 0000 05/31/22 2117 WBC 7.2 7.8 9.7* 8.7 6.7 HGB 8.7* 8.3* 9.0* 8.6* 8.5* PLATELET 260 263 250 260 233 Recent Labs 06/02/22 0030 06/01/22 0100 05/31/22 1050 NA 142 141 140 K 3.8 4.0 4.1 CL 108* 108* 107 CO2 24 24 23 BUN 12 23* 39* CREATININE 0.71* 0.78* 0.91 GLUCOSE 151 148 223* Recent Labs 06/02/22 0030 06/01/22 0100 05/31/22 1050 CALCIUM 8.1* 8.6 9.1 MAGNESIUM 0.83 0.93 0.93 PHOS -- -- 3.2 Recent Labs 05/31/22 1050 AST 24 ALT 44 ALKPHOS 63 BILITOT <0.2* BILIDIR 0.1 No results for input(s): INR in the last 168 hours. No results for input(s): HA1C in the last 7068 hours. Microbiology: N/A Pertinent radiology/diagnostic studies: CXR 05/31: IMPRESSION No findings to suggest pneumonia. Prominent pulmonary vascular without overt interstitial or pulmonary edema. CT A/P 05/31: IMPRESSION 1. No active extravasation/bleeding. 2. Mild soft tissue stranding noted in the LEFT inguinal region secondary to procedure. No barrett hematoma. EGD 05/31: Impression: ?- Normal esophagus. ?- Mild erosive gastropathy with no ?bleeding and no stigmata of recent ?bleeding. ?- Two angioectasias in the ?duodenum, one with active oozing. ?Both were treated with argon beam ?coagulation. ?- No specimens collected. ? Discharge Conditions/Prognosis: Upon discharge the pt is hemodynamically stable, afebrile, fully ambulatory without supplemental oxygen, holding down food/drink, and pain free. Discharge to: Home Discharge Medications: Your Medications Continued medications, unchanged Dose Details acetaminophen 325 mg Tab Commonly known as: Tylenol Take 2 tablets by mouth every 6 hours as needed for Pain. 650 mg Quantity: 30 tablet Refills: 1 ascorbic acid (vitamin C) 1,000 mg Tab Commonly known as: VITAMIN C Take 1,000 mg by mouth daily. 1,000 mg Refills: 0 calcium citrate 200 mg (950 mg) Tab Commonly known as: Calcitrate Take 1 tablet by mouth daily. 1 tablet Refills: 0 carboxymethylcellulose 0.5 % Dpet Commonly known as: Refresh Plus Apply to eye 3 times daily as needed. Refills: 0 clopidogreL 75 mg Tab Commonly known as: Plavix Take 1 tablet by mouth daily. 75 mg Quantity: 90 tablet Refills: 3 Crestor 40 mg Tab Take 40 mg by mouth daily. Generic drug: rosuvastatin 40 mg Refills: 0 dapagliflozin 5 mg Tab Commonly known as: Farxiga Take 1 tablet by mouth daily. 5 mg Quantity: 30 tablet Refills: 0 fluorouraciL 5 % Crea Commonly known as: EFUDEX daily. Refills: 0 fluticasone propionate 50 mcg/actuation Spsn Commonly known as: Flonase 1 spray by Each Nare route daily as needed. 1 spray Refills: 0 metoprolol succinate XL 50 mg Tablet sr Commonly known as: Toprol-XL Take 1 tablet by mouth daily. 50 mg Quantity: 30 tablet Refills: 12 MULTIPLE VITAMIN ORAL Take 1 tablet by mouth daily. 1 tablet Refills: 0 pantoprazole EC 40 mg Tbec Commonly known as: Protonix Take 1 tablet by mouth daily. 40 mg Quantity: 90 tablet Refills: 3 rivaroxaban 20 mg Tab Commonly known as: Xarelto Take 1 tablet by mouth daily. 20 mg Quantity: 30 tablet Refills: 11 sildenafiL 100 mg Tab Commonly known as: VIAGRA Take 100 mg by mouth as needed for Erectile Dysfunction. 100 mg Refills: 0 tamsulosin 0.4 mg Cap Commonly known as: Flomax Take 0.4 mg by mouth daily. 0.4 mg Refills: 0 STOPPED Medications aspirin EC 81 mg Tbec valsartan 40 mg Tab Commonly known as: Diovan Updated Allergies/ADRs: Allergies Allergen Reactions ??? Aspirin Other (See Comments) GI bleed Patient Instructions Patient Instructions on Discharge to Home Why you were hospitalized - You were dizzy and lightheaded and found to have a bleed coming from youGI tract. You had an EGD where they were able to cauterize the area and stop the bleeding. Because you just had stents put into your heart, its really important to stay on the Plavix, but we spoke withcardiology agreed it's ok to stop the aspirin. You also will be continued on your blood thinner since you recently had that clot in your leg. Because it's hard to switch these medicine's with insurance, we will continue with the Xeralto and you should discuss potentially switching to a different bloodthinner with the complaints coordinator outpatient. Call your doctor or seek medical attention if you develop the following - chest pain, shortness of breath, feeling dizzy upon standing, passing out, diarrhea, constipation lasting longer than 2 days, fevers (temperature over 100.3), chills, abdominal pain, vomiting, difficulty or discomfort when urinating, bloody or black bowel movements, or any other acute or concerning symptom. Changes in Your Medications: New Medications: None -- please keep taking your Plavix and Xarelto as you had been before. You may discuss switchingto a different blood thinner with your complaints coordinator as an outpatient Stopped Medications - Aspirin - Valsartan - Speak with your complaints coordinator about the timing of restarting this Follow-up Appointments Future Appointments Date Time Provider Department Center 06/10/2022 11:00 AM Loretta Cohen MD [facility] 06/13/2022 7:30 AM Edson [place]os [place] [facility] LAB [facility] 06/13/2022 8:00 AM Fito Summers MD [facility] V SURG [facility] 06/13/2022 10:00 AM Alan Reid MD [facility] CARD [address] [place] [address] Your Inpatient Medical Team at [facility] Name(s) of your inpatient provider(s): Dr. John Ames For questions regarding issues relating to your hospitalization on the Hospital Medicine Service, please contact your inpatient physician through the [facility] Awning Hanger Supervisor [phone]. Issues after hours and on weekends will be handled by the Hospitalist staff on-call. Your Primary Care Provider Bobby Das MD [phone] Future Appointments and Orders Future Appointments and Orders Future Appointments Provider Department Dept Phone 06/10/2022 11:00 AM Loretta Cohen MD Dermatology at [facility] Arrive at: [facility] [address] [place] [phone] 06/13/2022 7:30 AM Edson [place]os [place] Vascular Lab at [facility] Arrive at: [facility] Area 06/13/2022 8:00 AM Fito Summers MD Vascular Surgery at [facility] Arrive at: [facility] Area 06/13/2022 10:00 AM Alan Reid MD Cardiology at [facility] Arrive at: [facility] Area 4A [phone] For questions regarding this document or issues relating to this hospitalization on the Medical Service, please contact your inpatient physician through the [facility] Awning Hanger Supervisor . Issues after hours and on weekends will be handled by the Hospitalist staff on-call. Signed: Arpita Valle MD documented in this encounter Discharge Instructions Patient InstructionsArpita Valle MD - 06/02/2022 11:21 AM EDT Patient Instructions on Discharge to Home Why you were hospitalized - You were dizzy and lightheaded and found to have a bleed coming from youGI tract. You had an EGD where they were able to cauterize the area and stop the bleeding. Because you just had stents put into your heart, its really important to stay on the Plavix, but we spoke withcardiology agreed it's ok to stop the aspirin. You also will be continued on your blood thinner since you recently had that clot in your leg. Because it's hard to switch these medicine's with insurance, we will continue with the Xeralto and you should discuss potentially switching to a different bloodthinner with the complaints coordinator outpatient. Call your doctor or seek medical attention if you develop the following - chest pain, shortness of breath, feeling dizzy upon standing, passing out, diarrhea, constipation lasting longer than 2 days, fevers (temperature over 100.3), chills, abdominal pain, vomiting, difficulty or discomfort when urinating, bloody or black bowel movements, or any other acute or concerning symptom. Changes in Your Medications: New Medications: None -- please keep taking your Plavix and Xarelto as you had been before. You may discuss switchingto a different blood thinner with your complaints coordinator as an outpatient Stopped Medications - Aspirin - Valsartan - Speak with your complaints coordinator about the timing of restarting this Follow-up Appointments Future Appointments Date Time Provider Department Center 06/10/2022 11:00 AM Loretta Cohen MD [facility] 06/13/2022 7:30 AM Edson [place] [facility] VAS LAB [facility] 06/13/2022 8:00 AM Fito Summers MD [facility] V SURG [facility] 06/13/2022 10:00 AM Alan Reid MD [facility] CARD 4A [facility] Your Inpatient Medical Team at [facility] Name(s) of your inpatient provider(s): Dr. John Ames For questions regarding issues relating to your hospitalization on the Hospital Medicine Service, please contact your inpatient physician through the [facility] Awning Hanger Supervisor [phone]. Issues after hours and on weekends will be handled by the Hospitalist staff on-call. Your Primary Care Provider Bobby Das MD [phone] documented in this encounter Medications at Time of Discharge [...] 04/12/20 21 (FLONASE) 50 mcg/actuation Nare route [place], Suspension daily as needed. fluorouraciL (EFUDEX) 5 [...] 1 tablet 0 ORAL) by mouth daily. dapagliflozin (Farxiga) 5 mg Take 1 tablet 30 tablet 0 05/1006/13/2022 Tablet by mouth daily. rivaroxaban (Xarelto) 20 mg Take 1 tablet 30 tablet 11 05/1706/13/2022 Tablet by mouth daily. documented as of this encounter Progress Notes John Jolley MD - 06/02/2022 2:53 PM EDT Hospital Medicine - Attending Day of Discharge Documentation Discharge diagnosis Active Hospital Problems Diagnosis ??? GIB (gastrointestinal bleeding) Resolved Hospital Problems No resolved problems to display. Secondary Issues Active Non-Hospital Problems Diagnosis ??? Limb ischemia ??? History of basal cell carcinoma ??? Basal cell carcinoma ??? Verruca vulgaris ??? AK (actinic keratosis) ??? MVP (mitral valve prolapse) s/p repair ??? Hypertriglyceridemia ??? Adhesive capsulitis of L shoulder ??? Alcohol use I have personally seen and examined the patient and they are ready for discharge. I spent >30 minutes (Day of Discharge Code 33118) involved in the final examination of the patient, discussion of the hospital stay, instructions for continuing care to all relevant caregivers, and preparation of discharge records, prescriptions and referral forms. Pt seen independently, case reviewed with resident team. Discharge summary reviewed. No further clinical bleeding. Case was reviewed with cardiology given new stent, will stop the ASA and continue plavix/DOAC. Plans ? Discharge to Home ? Please see the Discharge Summary for complete details of any medication changes and additional plans. Kurt Ames MD - 06/01/2022 8:32 AM EDT Images from the original note were not included. [place] [facility] Medicine Progress Note Bruce Team - Pager #[phone] Admit Date: 05/31/2022 Name: Koko Zamora : 1940 Active Problems: Active Hospital Problems Diagnosis ??? GIB (gastrointestinal bleeding) Resolved Hospital Problems No resolved problems to display. Koko Zamora is a 81 y.o. male w/ PMH of mitral valve repair in 2000, prediabetes, tobacco use,alcohol use, prior GIB, recent hospitalization from 05/15 - 05/21 with acute limb ischemia LLE, where he had left common femoral transverse arteriotomy and primary repair, thromboembolectomy of the SFA, profunda and common femoral artery with 4 compartment fasciotomies. His course was complicated by new onset afib w/ RVR, and HFrEF (EF28%) for which he had a left heart cath revealing CAD now s/p stent placement in OM1 and angioplasty mid LCx. He was placed on triple therapy with ASA, plavix and xarelto. Today he presented to vascular clinic for follow up where he was dizzy and lightheaded, found tohave a hgb drop from 11 to 6.9. Hospital Day: 1 24 hr/Subjective: Overall, Mr. Zamora reports feeling well overnight save some difficulty sleeping. Denies abdominal/back pain, nausea, vomiting, fevers, chills. No hematuria/hematemesis/hematochezia/melena. Remains in Afib.Notably anxious about aspirin as a potential cause of GI bleed. Vitals Last value Range last 24 hrs Temperature Temp: 36.6 ??C (97.9 ??F) Temp: [36.5 ??C (97.7 ??F)-36.9 ??C (98.4 ??F)] Heart Rate Heart Rate: (!) 102 Heart Rate: [76-122] Blood Pressure BP: 109/64 BP: (78-118)/(48-72) Art Line BP BP (Arterial Line): -- MAP (NBP): [66 mmHg-82 mmHg] Respiratory Rate Resp: 13 Resp: [13-23] SpO2 SpO2: 97 % SpO2: [95 %-100 %] Oxygen Delivery Oxygen Therapy O2 Device: None (Room air) O2 Flow Rate (L/min): 5 L/min Intake/Output Summary (Last 24 hours) at 06/01/2022 0833 Last data filed at 06/01/2022 0815 Gross per 24 hour Intake 1206 ml Output 675 ml Net 531 ml Patient Vitals for the past 168 hrs: Weight 05/31/22 1018 77.1 kg (170 lb) Physical Exam Gen: in bed in NAD; alert, oriented, conversant HEENT: anicteric, EOMI intact, CV: Irregular rate, borderline tachycardic, no murmurs/rubs/gallops Resp: CTAB, no crackles/wheezes/ronchi, normal work of breathing Abd: normal bowel sounds, soft, non-tender to palpation, no rebound or guarding Ext: 2+ distal pulses, no pedal edema Neuro: no focal deficits noted, CN II-XII grossly intact, moves all extremities spontaneously Skin: no rashes, lesions, or ulcerations noted LABS: Reviewed in eDH. Remarkable for the following: CBC: Recent Labs 06/01/22 0556 06/01/22 0000 05/31/227 WBC 9.7* 8.7 6.7 HGB 9.0* 8.6* 8.5* PLATELET 250 260 233 Chemistry: Recent Labs 06/01/22 0100 05/31/22 1050 05/20/22 1050 05/17/22 0333 NA 141 140 137 137 K 4.0 4.1 3.6 3.5 CL 108* 107 103 102 CO2 24 23 24 25 BUN 23* 39* 11 12 CREATININE 0.78* 0.91 0.63* 0.74* GLUCOSE 148 223* -- 158 Recent Labs 06/01/22 0100 05/31/22 1050 05/20/22 1050 05/17/22 0333 05/16/22 0301 CALCIUM 8.6 9.1 8.7 8.4* 8.2* MAGNESIUM 0.93 0.93 -- 0.76 0.77 PHOS -- 3.2 -- -- 3.7 LFT's: Recent Labs 05/31/22 1050 BILITOT <0.2* BILIDIR 0.1 ALBUMIN 4.1 ALKPHOS 63 ALT 44 AST 24 Coags: No results for input(s): PT, INR, PTT, FIBRINOGEN, DDIMER in the last 168 hours. Invalid input(s): THROMBIN TIME Cardiac enzymes: Recent Labs 05/31/22 1050 05/15/22 1200 TROPONINT <0.01 -- CK -- 87 PROBNP 1,077* -- Endocrine: Recent Labs 05/31/22 1120 05/18/22 2000 TSH 1.67 2.27 No results for input(s): HA1C in the last 7068 hours. Heme: No results for input(s): LDH, HAPTOGLOBIN, URICACID in the last 168 hours. Lipids: Imaging/Studies: Recent prior TTE 05/16/2022 Left ventricle is mildly dilated. Left ventricular systolic function is severely reduced. The left ventricular ejection fraction is 28% by Gaxiola's biplane. Right ventricular systolic function is mildly decreased. There is moderate aortic stenosis. The mean gradient across the aortic valve is 13 mmHg. JUVENAL 1.2 cm2 S/P MV repair for prolapse. There is mild mitral regurgitation. Compared with the prior TTE of 09/03/2012, moderate and LV systolic dysfunction are new. ?? CXR 05/31/2022 IMPRESSION No findings to suggest pneumonia. Prominent pulmonary vascular without overt interstitial or pulmonary edema. ?? CT A/P: IMPRESSION 1. ??No active extravasation/bleeding. 2. ??Mild soft tissue stranding noted in the LEFT inguinal region secondary to procedure. No barrett hematoma. ?? EGD: --Esophagus normal --Few localized erosions with no bleeding and no stigmata of recent bleeding were found in gastric antrum --2 small angioectasias in third portion of duodenum. One was oozing. Both treated with argon beam ASSESSMENT/PLAN: Koko Zamora is a 81 y.o. male w/ PMH of mitral valve repair in 2000, prediabetes, tobacco use,alcohol use, prior GIB, recent hospitalization from 05/15 - 05/21 with acute limb ischemia LLE, where he had left common femoral transverse arteriotomy and primary repair, thromboembolectomy of the SFA, profunda and common femoral artery with 4 compartment fasciotomies. His course was complicated by new onset afib w/ RVR, and HFrEF (EF28%) for which he had a left heart cath revealing CAD now s/p stent placement in OM1 and angioplasty mid LCx. He was placed on triple therapy with ASA, plavix and xarelto. Today he presented to vascular clinic for follow up where he was dizzy and lightheaded, found tohave a hgb drop from 11 to 6.9. ?? #Acute blood loss anemia #upper GI bleed -s/p EGD which showed 2 angioectasias in duodenum (one with active oozing), both treated with argon beam coagulation -Clear liquid diet -Maintain 2 large bore IV's -IV PPI 40mg BID -Active type and screen -Transfuse for hgb <7 -IF transfusing, run at reduce HF rate -Hold ASA -Q6hr CBC's - Reach out cardiology to discuss antiplatelet (ISO bleed and care home), following. ?? #CAD s/p stenting recently #HFrEF LVEF 28% - Continue Rosuvastatin 40mg daily - Hold home Valsartan 40mg BID - Hold home Dapaglifozin - Hold home Metoprolol 50mg daily - continue Plavix 75mg daily due to new stents - Cardiology consult, appreciate recs ?? #Afib w/ RVR #Hx of Recent LLE ischemia - hold Xarelto 20mg daily - Start heparin gtt ?? #Other/Chronic - Restarted tamsulosin 0.4mg today. #Routine PPX -DVT: Heparin gtt - GI: IV PPI 40mg BID Diet: Clears Consults: Cards and GI Lines/Access: PIV x2 CODE Status: Full Kurt Ames MD Internal Medicine, PGY-1 Medicine [facility] Team #[id number] Associated attestation - John Jolley MD - 06/01/2022 5:02 PM EDT [facility] -- Attending Progress Note Please see Dr. Ames's note for details of the patient history of presentation and data. I have discussed, reviewed and agree with the documented History, Physical findings, Assessment and Plan of care. I have examined the patient myself and personally reviewed all studies. Additions to the history, physical, assessment and plan include the following: Pt seen with Dr. Ames on rounds. The bleeding lesion was addressed and no further clinical bleeding with a stable Hgb. Will need to determine a home anticoagulation plan -- the patient is very hesitant to continue ASA given he has now had two bleeds on it. Will review with Cards and Vasc, but likely best plan is plavix and his DOAC. If remains stable, would plan to discharge tomorrow. No need forhigh dose PPI therapy, would switch back to his home baseline. Attestation I certify that I am a [facility] credentialed attending provider with admitting privileges and that the patient meets or has met medical necessity to require an inpatient IPI level of care meetinga minimum of two midnights or is on the CMS inpatient only procedure list (status C) due to: GI Bleeding documented in this encounter H&P Notes Mahendra Victor MD - 05/31/2022 4:33 PM EDT Images from the original note were not included. [facility] Medicine (#[id number]) History and Physical Patient info: Name: Koko Zamora : 1940 PCP: Bobby Das MD PCP phone number: [phone] Date of Admission: 05/31/2022 ( Hospital Day 0 days ) Responsible Attending:Mahendra Victor MD There are no hospital problems to display for this patient. Active Non-Hospital Problems Diagnosis ??? Limb ischemia ??? History of basal cell carcinoma ??? Basal cell carcinoma ??? Verruca vulgaris ??? AK (actinic keratosis) ??? GIB (gastrointestinal bleeding) ??? MVP (mitral valve prolapse) s/p repair ??? Hypertriglyceridemia ??? Adhesive capsulitis of L shoulder ??? Alcohol use ID: Koko Zamora is a 81 y.o. male w/ PMH of mitral valve repair in 2000, prediabetes, tobacco use, alcohol use, prior GIB, recent hospitalization from 05/15 - 05/21 with acute limb ischemia LLE, where he had left common femoral transverse arteriotomy and primary repair, thromboembolectomy of the SFA, profunda and common femoral artery with 4 compartment fasciotomies. His course was complicated by new onset afib w/ RVR, and HFrEF (EF28%) for which he had a left heart cath revealing CAD now s/p stent placement in OM1 and angioplasty mid LCx. He was placed on triple therapy with ASA, plavix and xarelto. Today he presented to vascular clinic for follow up where he was dizzy and lightheaded, found to have a hgb drop from 11 to 6.9. Patient was in endoscopy suit at time of admission, so history was gathered by chart review. He had previously been doing well since discharged until this Friday when he started to have CHAMBERS, fatigue and lightheadedness. He denied palpitations, chest pain, syncope or falls. He reports being compliant with all medication, but had been taking his Losartan only once a day due to low blood pressures. He denied having any issues at incision sites. In the ED he was found to be in Afib with RVR with rates in the low 100s. Hypotension with systolics as low as 80s. Labs were significant for a hgb drop to 6.9 (last 11.8 a week ago). pBNP 1000 (no prior's), negative troponin. GI was consulted, where he revealed he had a prior significant GI bleed 20 years ago while on an aspirin regimen. He also reported that since discharge he gets cramping when he tries to go to the bathroom and has noted dark, solid stools with straining yesterday. He received 1U pRBCs and started on PPI. GI is suspicious for an upper bleed in the setting of triple therapy and symptoms. He was taken to directly to the endoscopy suite for EGD No past medical history on file. Past Surgical History: Procedure Laterality Date ??? IR BIOPSY SPINE 07/20/2019 IR Biopsy Spine 07/20/2019 Bobby Marshall MD [facility] INTERVENTIONL RAD ??? IR VERTEBROPLASTY LUMBAR MULTIPLE LEVELS 07/20/2019 IR Vertebroplasty Lumbar Multiple Levels 07/20/2019 Bobby Marshall MD [facility] INTERVENTIONL RAD ??? IR VERTEBROPLASTY THORACIC SINGLE LEVEL 10/25/2020 IR Vertebroplasty Thoracic Single Level 10/25/2020 Matt Chisholm MD [facility] INTERVENTIONL RAD ??? PRO EMBLC/THRMBC FEMORAL POPLITEAL AORTO-ILIAC ARTERY Left 05/15/2022 EMBOLECTOMY OR THROMBECTOMY, FEMOROPOPLITEAL, AORTOILIAC ARTERY BY LEG INCISION (WRVU 19.48) performed by Fito Summers MD at [facility] MAIN OR No family history on file. Social History Socioeconomic History ??? Marital status: [...] on file Housing Stability: Not on file Medications Prior to Admission Medication Sig Dispense Refill Last Dose ??? acetaminophen (Tylenol) 325 mg Tablet Take 2 tablets by mouth every 6 hours as needed for Pain. 30 tablet 1 ??? valsartan (Diovan) 40 mg Tablet Take 1 tablet by mouth 2 times daily. (Patient taking differently: Take 40 mg by mouth daily.) 60 tablet 1 ??? aspirin EC 81 mg Tablet, Delayed Release (E.C.) Take 1 tablet by mouth daily for 30 days. 30 tablet 0 ??? clopidogreL (Plavix) 75 mg Tablet Take [...] by mouth daily. 30 tablet 11 ??? fluticasone propionate (FLONASE) 50 mcg/actuation [place], Suspension as needed. ??? fluorouraciL (EFUDEX) 5 % Cream daily. ??? ascorbic acid, vitamin C, (VITAMIN C) 1,000 mg Tablet daily. ??? sildenafiL (VIAGRA) 100 mg Tablet [...] ORAL) Take 1 tablet by mouth daily. Allergies Allergen Reactions ??? Aspirin Other (See Comments) GI bleed Objective: Vitals Last value Range last 24 hrs Temperature Temp: 36.6 ??C (97.9 ??F) Temp: [36.6 ??C (97.9 ??F)-36.9 ??C (98.4 ??F)] Heart Rate Heart Rate: 90 Heart Rate: [76-122] Blood Pressure BP: 115/48 BP: (78-115)/(48-72) Art Line BP BP (Arterial Line): -- MAP (NBP): [68 mmHg-79 mmHg] Respiratory Rate Resp: 14 Resp: [13-20] SpO2 SpO2: 98 % SpO2: [96 %-100 %] Oxygen Delivery Oxygen Therapy O2 Device: None (Room air) No intake or output data in the 24 hours ending 05/31/22 1633 Patient Vitals for the past 168 hrs: Weight 05/31/22 1018 77.1 kg (170 lb) Admit wt: 77.11 kg Physical Exam: Deferred due to being in endoscopy suite Lines/Tubes/Drains Peripheral IV Line - Single Lumen 05/31/22 1026 median cubital vein (antecubital fossa), left 20 gauge (Active) Site Preparation/Maintenance site cleansed: chlorhexidine solution;dressing: transparent semipermeable applied 05/31/22 1026 Securement catheter stabilization device, secured with;sterile tape strips, secured with 05/31/22 1026 Patency/Maintenance flushed without difficulty;blood return, able to obtain 05/31/22 1026 Phlebitis 0-->no symptoms 05/31/22 1026 Infiltration 0-->no symptoms 05/31/22 1026 Number of days: 0 Labs: CBC: Recent Labs 05/31/22 1244 05/31/22 1050 WBC 7.6 8.3 HGB 6.9* 7.4* HCT 20.8* 22.3* PLATELET 255 283 NEUTROABS 4.71 5.58 Chemistry: Recent Labs 05/31/22 1050 05/20/22 1050 05/17/22 0333 05/16/22 0301 NA 140 137 137 138 K 4.1 3.6 3.5 4.5 CL 107 103 102 108* CO2 23 24 25 22 BUN 39* 11 12 12 CREATININE 0.91 0.63* 0.74* 0.66* GLUCOSE 223* -- 158 222* ANIONGAP 10 10 10 8 Recent Labs 05/31/22 1050 05/20/22 1050 05/17/22 0333 05/16/22 0301 CALCIUM 9.1 8.7 8.4* 8.2* MAGNESIUM 0.93 -- 0.76 0.77 PHOS 3.2 -- -- 3.7 LFT's: Recent Labs 05/31/22 1050 BILITOT <0.2* BILIDIR 0.1 ALBUMIN 4.1 ALKPHOS 63 ALT 44 AST 24 Coags: No results for input(s): PT, INR, PTT, FIBRINOGEN, DDIMER in the last 168 hours. Invalid input(s): THROMBIN TIME Cardiac enzymes: Recent Labs 05/31/22 1050 05/15/22 1200 TROPONINT <0.01 -- CK -- 87 PROBNP 1,077* -- Endocrine: Recent Labs 05/31/22 1120 05/18/22 2000 TSH 1.67 2.27 No results for input(s): HA1C in the last 7068 hours. Heme: No results for input(s): LDH, HAPTOGLOBIN, URICACID in the last 168 hours. ABG: ABG (Arterial Blood Gas) No results found for: PHART, PO2ART, WJQ7PUK, HTR9GDW Microbiology: N/A Pertinent radiology/diagnostic studies: Recent prior TTE 05/16/2022 Left ventricle is mildly dilated. Left ventricular systolic function is severely reduced. The left ventricular ejection fraction is 28% by Gaxiola's biplane. Right ventricular systolic function is mildly decreased. There is moderate aortic stenosis. The mean gradient across the aortic valve is 13 mmHg. JUVENAL 1.2 cm2 S/P MV repair for prolapse. There is mild mitral regurgitation. Compared with the prior TTE of 09/03/2012, moderate and LV systolic dysfunction are new. CXR 05/31/2022 IMPRESSION No findings to suggest pneumonia. Prominent pulmonary vascular without overt interstitial or pulmonary edema. CT A/P: IMPRESSION 1. No active extravasation/bleeding. 2. Mild soft tissue stranding noted in the LEFT inguinal region secondary to procedure. No barrett hematoma. EGD: --Esophagus normal --Few localized erosions with no bleeding and no stigmata of recent bleeding were found in gastric antrum --2 small angioectasias in third portion of duodenum. One was oozing. Both treated with argon beam ASSESSMENT/PLAN: Koko Zamora is a 81 y.o. male w/ PMH of mitral valve repair in 2000, prediabetes, tobacco use,alcohol use, prior GIB, recent hospitalization from 05/15 - 05/21 with acute limb ischemia LLE, where he had left common femoral transverse arteriotomy and primary repair, thromboembolectomy of the SFA, profunda and common femoral artery with 4 compartment fasciotomies. His course was complicated by new onset afib w/ RVR, and HFrEF (EF28%) for which he had a left heart cath revealing CAD now s/p stent placement in OM1 and angioplasty mid LCx. He was placed on triple therapy with ASA, plavix and xarelto. Today he presented to vascular clinic for follow up where he was dizzy and lightheaded, found tohave a hgb drop from 11 to 6.9. #Acute blood loss anemia #upper GI bleed -s/p EGD which showed 2 angioectasias in duodenum (one with active oozing), both treated with argon beam coagulation -Clear liquid diet -Maintain 2 large bore IV's -IV PPI 40mg BID -Active type and screen -Transfuse for hgb <7 -IF transfusing, run at reduce HF rate -Hold ASA -Q6hr CBC's #CAD s/p stenting recently #HFrEF LVEF 28% - Continue Rosuvastatin 40mg daily - Hold home Valsartan 40mg BID - Hold home Dapaglifozin - Hold home Metoprolol 50mg daily - continue Plavix 75mg daily due to new stents - Cardiology consult, appreciate recs #Afib w/ RVR #Hx of Recent LLE ischemia - hold Xarelto 20mg daily - Start heparin gtt #Other/Chronic - Hold tamsulosin 0.4mg while hypotensive #Routine PPX -DVT: Heparin gtt - GI: IV PPI 40mg BID Diet: Clears Consults: Cards and GI Lines/Access: PIV x2 CODE Status: Full Arpita Valle MD, PGY-3 05/31/2022 Hospital Medicine # [id number] Attending Staff Admission Documentation I have examined the patient myself on 05/31/2022 and reviewed all labs and studies personally. Please see Dr. Valle's documentation for details of the patient history of presentation and data. I have discussed, reviewed and agree with the documented history with ROS, physical findings, labs/studies, assessment and plan of care. MAHENDRA VICTOR MD 06/01/2022 documented in this encounter ED Notes Kalros Still, RN - 05/31/2022 3:58 PM EDT Norepinephrine pulled from ominicell for soft BPs. Upon arrival to pt's room BPs had recovered and pt no longer met parameters for norepi admin. Norepinephrine NOT started. Endo RNs here to take pt procedure. They are aware of pt's earlier pressures, will initiated norepi from their stock if needed. Jaylene Esparza RN - 05/31/2022 3:28 PM EDT Report given to ENDO nurse Angella Floyd RN - 05/31/2022 1:14 PM EDT When RN asked if pt was dizzy anymore he stated I don't know, I am only dizzy when I stand up and Ihave been laying down while I have been here. Gianni Francois RN - 05/31/2022 10:50 AM EDT Pt brought to XR by mushroom sorter grader Brittany Ramirez MD - 05/31/2022 10:40 AM EDT ED Resident Note HPI: Koko Zamora is a 81 y.o. male with history of G.I. bleeding thought to be due to a bleeding gastric ulcer secondary to NSAID use who was recently admitted 05/15-05/21/22 for acute limb ischemia of the left lower extremity (s/p Left common femoral transverse arteriotomy and primary repair; multi-vessel Thromboembolectomy; Left lower extremity 4 compartment fasciotomies) with hospitalization complicated by needing LHC now s/p DESx1, and transient episode of atrial fibrillation (no known history of this) who presents to the Emergency Department due to three days of worsening dyspnea on exertion andfatigue associated with low blood pressure readings on home BP cuff. Patient notes he had previouslybeen doing well since his discharge on 05/21, up until this Friday, 05/28, when he noted onset of dyspnea with minimal exertion, fatigue, and some lightheadedness with standing he has not had palpitations, chest pain, any episodes of syncope, falls, trauma. He notes that he has continued to stay well hydrated. He has been compliant with all of his medications, however notes that he has only been taking his losartan once daily due to very low blood pressures with systolic symptoms 60s when he was taking it twice daily shortly after discharge. He notes compliance with daily aspirin, Plavix, and Xarelto, and all other new medications. He notes that his incision sites have not had any bleeding, pustular drainage, warmth, or redness. He has not had any abdominal pain, chest pain, palpitations, difficulty breathing while at rest, PND, orthopnea, cough, URI symptoms, fevers. He has had normal strength and sensation and bilateral lower extremities. He has had normal PO intake, and has been having adequate fluid intake. Pt was seen under the supervision of an attending physician. Pertinent positives and negatives are included in the HPI, otherwise at least ten systems were reviewed and negative. Past Medical and Surgical Histories, Social History, Medications, Allergies were reviewed in the chart. Vitals: ED Triage Vitals [05/31/22 1018] BP: 100/61 Heart Rate: (!) 121 Resp: 20 Temp: 36.9 ??C (98.4 ??F) Temp src: Oral SpO2: 100 % O2 Device: RA O2 Flow Rate (L/min): n/a Physical Exam Vitals and nursing note reviewed. Constitutional: General: He is not in acute distress. Appearance: Normal appearance. He is normal weight. He is not toxic-appearing or diaphoretic. HENT: Head: Normocephalic and atraumatic. Eyes: General: No scleral icterus. Extraocular Movements: Extraocular movements intact. Conjunctiva/sclera: Conjunctivae normal. Cardiovascular: Rate and Rhythm: Tachycardia present. Rhythm irregular. Pulses: Normal pulses. Heart sounds: Normal heart sounds. Comments: Afib on the monitor with RVR in 100-130s. Pulmonary: Effort: Pulmonary effort is normal. No respiratory distress. Breath sounds: Rales (trace at bases ) present. Abdominal: General: Abdomen is flat. There is no distension. Palpations: Abdomen is soft. Tenderness: There is no abdominal tenderness. There is no guarding. Genitourinary: Rectum: Normal. Guaiac result positive (Brown stool). Musculoskeletal: Right lower leg: No edema. Left lower leg: Edema (moderate LLE pitting edema) present. Comments: LLE medial and lateral fasciotomy sites closed with windy are CDI, no surrounding erythema, edema, or induration. Skin: General: Skin is warm and dry. Capillary Refill: Capillary refill takes less than 2 seconds. Coloration: Skin is pale. Skin is not jaundiced. Neurological: Mental Status: He is alert and oriented to person, place, and time. Mental status is at baseline. Sensory: No sensory deficit. Motor: No weakness. Psychiatric: Mood and Affect: Mood normal. Behavior: Behavior normal. ED Course: I have reviewed labs and imaging, images and available reports, and they are significant for: CT Abdomen & Pelvis wwo Contrast (GI BLEED) Final Result 1. No active extravasation/bleeding. 2. Mild soft tissue stranding noted in the LEFT inguinal region secondary to procedure. No barrett hematoma. Thank you for letting us participate in the care of this patient. If you are a health care provider and have any questions regarding this report, please contact the number below. For patients who have questions please contact the health care management associate that requested your imaging first. Chest PA & Lateral (Generic) Final Result No findings to suggest pneumonia. Prominent pulmonary vascular without overt interstitial or pulmonary edema. I have personally reviewed the image(s) and the resident's interpretation and agree with the findings, Alan Brink MD at 05/31/2022 11:33 AM Thank you for letting us participate in the care of this patient. If you are a health care provider and have any questions regarding this report, please contact the number below. For patients who have questions please contact the health care management associate that requested your imaging first. Course as of 05/31/22 1550 Fri May 31, 2022 1135 Hemoglobin(!): 7.4 From 11.8 10 days ago on day of admission. No recent melena, BRBPR, hematemesis, trauma, hematuria, or other known bleeding. Patient prefers this to be rechecked prior to transfusion - repeat CBC ordered. 1135 Hematocrit(!): 22.3 1157 Lactate WB: 1.4 1158 pH Marco Antonio: 7.38 1238 ProBNP(!): 1,077 1238 Troponin-T: <0.01 1238 TSH: 1.67 1238 Creatinine: 0.91 1238 Glucose Lvl(!): 223 BMP otherwise unremarkable 1326 Hemoglobin(!): 6.9 Repeat CBC confirms profound anemia. One unit of pRBCs ordered. Consent for transfusion signed. 1334 Hemoccult positive stool.Paging GI. 1336 Patient now 80-90s/60s, asymptomatic. Chart appears that type and screen was never collected, thus called heme for uncrossed blood. 1339 Vascular surgery is aware 1356 Vascular surgery aware. G.I. to come and evaluate the patient. Starting blood now. Assessment and Plan: 81 y.o. male with history of remote G.I. bleed 2/2 bleeding gastric ulcer, admitted 05/15-05/21 for Amol/p revascularization of the LLE with admission complicated by [facility] s/p DESx1 and transient episode of new onset atrial fibrillation, with TTE showing new HFrEf (EF28%) who presents to the ED due to onset of dyspnea on exertion, lightheadedness, and fatigue beginning three days ago. Patient is in a fibwith RVR upon arrival, with blood pressure 100s over 60s, breathing comfortably on room air satting 98%, with normal work of breathing. Overall, symptoms Thought most likely to be secondary to symptomatic a fib with RVR, most likely caused by underlying HFrEf with EF 28%, however pursued laboratory workup to assess for secondary causes of atrial fibrillation, such that the afebrile was compensatory for an underlying etiology. A chest x-ray was also completed which showed prominent pulmonary vasculature, however no overt evidence of pulmonary edema. Labs notable for significantly reduced hemoglobin of 7.4, down from 11.5 only 10 days ago. Symptomatic anemia also greatly explains the patient's symptoms, and can also explain compensatory response ofhis heart rate with atrial fibrillation at present. Further discussed with the patient concern of occult bleeding, and at this time performed rectal exam which was hemoccult positive without BRBPR or melena noted. Patient did not believe the hemoglobin, and requested that it be rechecked prior to initiating blood transfusion. Recheck of hemoglobin was even more severe with hemoglobin 6.4. At this point, patient did have slowly decreasing blood pressures, now with blood pressures in the high 80s and low 90s over 60s. Significant relatively rapid improvement in blood pressure after receiving one unitof blood. Second unit infusing at end of my shift. Discussed the case with Graham fellow, who will evaluate the patient at bedside. Also discussed with vascular surgery as an FYI given he was recently admitted to their service. CT abdomen and pelvis was completed to assess for active extravasation given the significant drop inhemoglobin in a relatively short amount of time here in the ED, and there was no evidence of extravasation or obvious hematoma. Plan to discuss with hospital medicine for likely admission to step down unit given hemodynamic instability and significant anemia, with Philippe.I. consultation. The visit findings, diagnosis, and care plan were discussed with the patient, and his agree with the plan. Patient signed out to oncoming ED team awaiting final recommendations from GLanden. Brittany Ramirez MD Resident 05/31/22 6134 Associated attestation - Regina Hinds MD - 06/05/2022 7:40 AM EDT ED ATTENDING ATTESTATION NOTE The patient was seen in conjunction with the resident physician. I have independently performed the diaz portions of the history and physical exam. I have reviewed the nursing notes, vital signs, and all diagnostic studies personally including labs, imaging studies and EKGs. I have discussed the details of the case with the resident and agree with the assessment and plan as described in the resident note unless noted otherwise. Final Assessment: Blood loss anemia, probable GI bleed documented in this encounter Miscellaneous Notes Plan of Care - Trinidad Saenz RN - 06/02/2022 2:47 PM EDT OUTCOME EVALUATION NOTE: OUTCOME SUMMARY: Patient A&Ox4. Room air. HR elevated to 130s while ambulating and intermittently soft blood pressures, MD made aware. 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 Patient reported blurry/hazy vision with some hypotension, MD made aware. Patient given xarelto and heparin gtt discontinued. OOB independently. at bedside. Discharge instructions, education, and follow up appointment provided to patient and spouse. IVs discontinued. Patient provided with belongings. Patient verbalized understanding of instructions with nofurther questions, comments, or concerns. Plan of Care - Raven Barbour RN - 06/02/2022 6:07 AM EDT OUTCOME EVALUATION NOTE: OUTCOME SUMMARY: Shadi remains A&O x4, VSS on RA. Heparin gtt infusing, UFH drawn, recheck 0630, results pending. Labs drawn, see results. Complaints of pain @ fasciotomy site, numbness/tingling in BLE and decreased sensation. MD aware and to bedside to assess. Lidocaine patches applied to left calf near incisions, pt declined further pain meds offered by MD. Pt did not sleep much overnight. PLAN MOVING FORWARD: Heparin gtt - plan to bridge to [facility] Discharge planning Increase strength & mobility INDIVIDUALIZED FALL PREVENTION INTERVENTIONS: Patient-specific fall risk factors per assessment: [current deficits]: tubes/lines/drains, generalized weakness Assistance [level of assistance required for transfers and ambulation]: 1A Supervision [direct monitoring required during toileting and ADLs]: hands on Surveillance [continuous indirect monitoring]: [place] ISCU monitoring, call light within reach, purposeful rounding, environmental modifications, bed alarm set Patient-specific fall prevention interventions for sensory deficits provided, if applicable: [X] N/A CPG GOAL OUTCOME EVALUATION: Consult Note - Rossy Anaya MD - 06/01/2022 7:25 PM EDT Images from the original note were not included. [facility] [place] [address] [place] [id number] INPATIENT CARDIOLOGY CONSULT NOTE Date of Consultation: 06/01/2022 Admit Date: 05/31/2022 Place of Service: IS86/IS86-A Referring Attending: REGINA HINDS COLEMAN W FRIEDMAN, HARLEY P Responsible Artist Color Separation: Dr. Rizo Hospital Day 1 day Reason for Consult: Antiplatelet/anticoagulation s/p pci and afib, with GI bleed HPI: Koko Zamora is a 81 y.o. male with a cardiac history significant for remote mitral valve repair (2000), pre-DM, HLD, significant alcohol use, tobacco use, Afib on xarelto, ischemic systolic heartfailure (recent C 05/20/2022 with 2V disease OM1 and distal RCA, had ostial LCX and LCx stent) who presented to [facility] [facility] on 05/31/2022 for GI bleed. Patient presented to vascular clinic on 05/31 with dizziness and lightheadedness, found to have Hgb drop from 11 to 6.9. Went for emergent EGD showing diminutive erosions with no bleeding, two small angioectasias in third portion of duodenum (one is oozing), both treated with argon beamed. Cardiac history notable for newly reduced LVEF to 28% during last admission. Thought initially was tachymyopathy (had been in rapid afib), but LHC showing LCx/OM and RCA disease. OM and LCx stented butdistal RCA left alone and will f/u with cardiology for consideration if he needed staging. He currently denies chest pain or SOB Initial vitals were Patient Vitals for the past 24 hrs: Temp Heart Rate From SP02 Pulse Resp BP SpO2 O2 Device 05/31/221999 -- -- 95 14 104/71 96 % -- 05/31/222037 36.5 ??C (97.7 ??F) 98 bpm 94 19 118/64 99 % RA 06/01/22 0000 36.8 ??C (98.2 ??F) 84 bpm 94 19 105/65 99 % RA 06/01/22 0004 -- -- 93 -- 105/65 -- -- 06/01/22 0109 -- 85 bpm 86 14 90/62 98 % -- 06/01/22 0121 -- 95 bpm 87 17 (!) 89/53 96 % -- 06/01/22 0200 -- 87 bpm 88 16 99/66 98 % -- 06/01/22 0400 36.6 ??C (97.9 ??F) 68 bpm 87 23 105/59 98 % RA 06/01/22 0557 -- -- -- -- 101/53 -- -- 06/01/22 0745 36.6 ??C (97.9 ??F) 91 bpm 95 20 114/57 98 % RA 06/01/22 0800 -- 83 bpm (!) 102 13 109/64 97 % -- 06/01/22 1141 36.8 ??C (98.2 ??F) -- -- -- -- -- -- 06/01/22 1150 -- 97 bpm 97 -- 119/64 -- -- 06/01/22 1200 -- 62 bpm 81 13 114/67 100 % RA 06/01/22 1600 -- 100 bpm 97 22 100/67 95 % -- 06/01/22 1728 -- (!) 107 bpm (!) 105 -- 113/69 -- -- 06/01/22 1919 36.9 ??C (98.4 ??F) 99 bpm (!) 101 16 93/56 97 % RA Active Problems: Active Hospital Problems Diagnosis ??? GIB (gastrointestinal bleeding) Secondary to 3-4 ASA/day, required admission and blood transfusion Resolved Hospital Problems No resolved problems to display. PMH: No past medical history on file. PSH: Past Surgical History: Procedure Laterality Date ??? IR BIOPSY SPINE 07/20/2019 IR Biopsy Spine 07/20/2019 Bobby Marshall MD [facility] INTERVENTIONL RAD ??? IR VERTEBROPLASTY LUMBAR MULTIPLE LEVELS 07/20/2019 IR Vertebroplasty Lumbar Multiple Levels 07/20/2019 Bobby Marshall MD [facility] INTERVENTIONL RAD ??? IR VERTEBROPLASTY THORACIC SINGLE LEVEL 10/25/2020 IR Vertebroplasty Thoracic Single Level 10/25/2020 Matt Chisholm MD [facility] INTERVENTIONL RAD ??? PRO EMBLC/THRMBC FEMORAL POPLITEAL AORTO-ILIAC ARTERY Left 05/15/2022 EMBOLECTOMY OR THROMBECTOMY, FEMOROPOPLITEAL, AORTOILIAC ARTERY BY LEG INCISION (WRVU 19.48) performed by Fito Summers MD at [facility] MAIN OR ALLERGIES: Allergies Allergen Reactions ??? Aspirin Other (See Comments) GI bleed Out-Patient Medications: Medications Prior to Admission Medication Sig Dispense Refill Last Dose ??? valsartan (Diovan) 40 mg Tablet Take 1 tablet by mouth 2 times daily. (Patient taking differently: Take 40 mg by mouth daily.) 60 tablet 1 05/30/2022 at Unknown time ??? aspirin EC 81 mg Tablet, Delayed Release (E.C.) Take 1 tablet by mouth daily for 30 days. 30 tablet 0 Past Week at Unknown time ??? clopidogreL (Plavix) 75 mg Tablet Take 1 tablet by mouth daily. 90 tablet 3 05/30/2022 at Unknowntime ??? metoprolol succinate XL (Toprol-XL) 50 mg Tablet Sustained Release 24 hr Take 1 tablet by mouth daily. 30 tablet 12 05/30/2022 at Unknown time ??? dapagliflozin (Farxiga) 5 mg Tablet Take 1 tablet by mouth daily. 30 tablet 0 05/30/2022 at Unknown time ??? pantoprazole EC (Protonix) 40 mg Tablet, Delayed Release (E.C.) Take 1 tablet by mouth daily. 90tablet 3 05/30/2022 at Unknown time ??? rivaroxaban (Xarelto) 20 mg Tablet Take 1 tablet by mouth daily. 30 tablet 11 05/30/2022 at Unknown time ??? fluticasone propionate (FLONASE) 50 mcg/actuation [place], Suspension 1 spray by Each Nare route daily as needed. Past Month at Unknown time ??? ascorbic acid, vitamin C, (VITAMIN C) 1,000 mg Tablet Take 1,000 mg by mouth daily. 05/30/2022 atUnknown time ??? calcium citrate (CALCITRATE) 200 mg (950 mg) Tablet Take 1 tablet by mouth daily. 05/30/2022 at Unknown time ??? tamsulosin (FLOMAX) 0.4 mg Capsule Take 0.4 mg by mouth daily. 05/30/2022 at Unknown time ??? CRESTOR 40 mg Tablet Take 40 mg by mouth daily. 05/30/2022 at Unknown time ??? MULTIVITAMIN (MULTIPLE VITAMIN ORAL) Take 1 tablet by mouth daily. 05/30/2022 at Unknown time ??? acetaminophen (Tylenol) 325 mg Tablet Take 2 tablets by mouth every 6 hours as needed for Pain. 30 tablet 1 Unknown at Unknown time ??? fluorouraciL (EFUDEX) 5 % Cream daily. More than a month at Unknown time ??? sildenafiL (VIAGRA) 100 mg Tablet Take 100 mg by mouth as needed for Erectile Dysfunction. Unknown at Unknown time ??? carboxymethylcellulose (REFRESH PLUS) 0.5 % Dropperette Apply to eye 3 times daily as needed. More than a month at Unknown time In-Patient Medications: ??? tamsulosin 0.4 mg Oral Daily ??? pantoprazole EC 40 mg Oral Daily ??? rosuvastatin 40 mg Oral Daily ??? fluticasone propionate 1 spray Each Nare Daily ??? sodium chloride 0.9 % (flush) 5 mL Intravenous BID ??? clopidogreL 75 mg Oral Daily ??? metoproloL tartrate 12.5 mg Oral Q6H BINDU ??? heparin (porcine) infusion 700 Units/hr (06/01/22 1255) Family History: No family history on file. [...] on file Housing Stability: Not on file Review of Systems: 11 point ROS is either negative or per HPI Physical Exam: Last value Range last 8 hrs Temperature Temp: 36.9 ??C (98.4 ??F) Temp: [36.8 ??C (98.2 ??F)-36.9 ??C (98.4 ??F)] Heart Rate Heart Rate: (!) 101 Heart Rate: [81-105] Blood Pressure BP: 93/56 BP: (93-119)/(56-69) Respiratory Rate Resp: 16 Resp: [13-22] SpO2 SpO2: 97 % SpO2: [95 %-100 %] Intake/Output Summary (Last 24 hours) at 06/01/2022 1925 Last data filed at 06/01/2022 1614 Gross per 24 hour Intake 811 ml Output 1300 ml Net -489 ml Wt & BMI By Encounter Date Flowsheet Row ED to Hosp-Admission (Current) from 05/31/2022 in Intermediate Special Care Unit [facility] ED to Hosp-Admission (Discharged) from 05/15/2022 in Intermediate Cardiac Care Unit [facility] Weight 77.1 kg (170 lb) 1 05/31/2022 1018 79.4 kg (175 lb) 1 05/21/2022 0900 BMI 25.85 1 05/31/2022 1018 26.97 1 05/15/2022 1800 General: Pleasant male in NAD Cardiac: tachycardic, irreg rhythm, S1/S2 of normal character and amplitude, no m/r/g. PMI Nondisplaced. Estimated RAP 3 mmhg Respiratory: Adequate air entry throughout. No adventitious sounds Abdominal: Soft and non-tender with no organomegaly. Normal bowel sounds Extremities: No atrophy, no clubbing/cyanosis, no edema, radial/DP/PT pulses 2+ and symmetric Neurology: Without focal deficit ECG: Echocardiogram: 05/16/2022 [facility] 05/20/2022 Coronary Angiography: Dominance: Right Left Main There was mild diffuse (<=25% stenosis) disease of the entire vessel segment of the left main artery. Left Anterior Descending There was a 25% diffuse stenosis of the proximal segment of the left anterior descending artery (LAD). Left Circumflex There was a 70% stenosis of the mid segment of the left circumflex artery (LCX). There was a 90% diffuse stenosis of the ostial segment of the first obtuse marginal branch (OM1) of the LCX. Distal flow was decreased (ALE Grade 1). Right Coronary Artery There was a 45% stenosis of the mid segment of the right coronary artery (RCA). The distal segment of the RCA had 90% stenosis. Ramus There was mild diffuse (<=25% stenosis) disease of the entire vessel segment of the ramus. Intravascular Imaging/Physiology: Intravascular Ultrasound was performed in the ostial OM1 using a 6 Fr EBU 3.5 guiding catheter and a 3.[address] [place] [facility] [address] 20 Mhz. Imaging was successful. Image quality was excellent. The ostial OM1 showed moderate diffuse atherosclerotic plaque. Post Intervention: The stent was well expanded and apposed. Indication for Intervention: Coronary intervention was indicated for primary therapy for an acute myocardial infarction. The priority for the procedure was Urgent. The NCDR indication for the procedure was NSTE-ACS. LVEF within one week was 28%. Syntax Score was Low. Initial PCI was performed for multivessel disease. Intervention Summary: Left Circumflex Artery Mid 70% Angioplasty was performed on the 70% stenosis in the mid segment of the LCX. This was a de segun lesion. According to the ACC/AHA classification system, this lesion was a type B1 moderate risk lesion. A guidewire was placed across this lesion. Vessel flow pre intervention was ALE 3. Lesion length was 10mm. Angioplasty was accomplished through a 6 Fr EBU 3.5 guide utilizing an EUPHORA 12 MM balloon with a maximum size of 2.50mm and a maximum inflation pressure of 12 atmospheres. The final outcome was defined as successful. The residual stenosis following this intervention was 15%. The final ALE flow was 3. First Obtuse Marginal Branch of the LCX Ostial 90% Stent insertion was performed on the 90% stenosis in the ostial segment of the OM1. This was a de segun lesion. This lesion was designated a type C high risk lesion based on ACC/AHA classification system. Primary prevention of restenosis was the indication for stent insertion. This was the culprit lesion. A guidewire was placed across this lesion. Vessel flow pre intervention was ALE 1. Lesion length was 25mm. The lesion involves a bifurcation with the LCX. This bifurcation lesion was treated with a single stent, side branch dilated post stent technique and a final kissing balloon post-dilation. Stent insertion was accomplished through a 6 Fr. EBU 3.5 guide. The lesion was predilated with a 2.00mm EUPHORA 15 MM balloon with a maximum inflation pressure of 12 atmospheres. A premounted 2.75 x 30 mm [place] (AMPARO) was deployed with a maximum inflation pressure of 12 atmospheres. Following stent deployment, the lesion was dilated using a 3.50mm [place] EUPHORA 08 MM balloon with a maximum inflation pressure of 9 atmospheres. The final outcome was defined as successful. A coronary arteriolar vasodilator was administered as part of the intervention on this lesion. There was no residual stenosis following this intervention. The final ALE flow was 3. Vascular Access: Vascular Access Management: Mechanical Compression of the right radial artery access site was performed. Dual Antiplatelet (DAPT) Recommendations: Drug eluting stent (AMPARO) inserted. P2Y12 Loading dose Clopidogrel 600 mg PO given in lab. Recommended anti-platelet/anti-thrombotic regimen: Start aspirin 81 mg daily now and continue for 7 days then stop. Restart aspirin 81 mg daily in 12 months and continue unless contraindicated. Start clopidogrel 75 mg daily now and continue for 12 months then stop. Start apixaban 5 mg twice daily now and continue for indefinitely. These recommendations are made at the time of the intervention. Patient and provider preferences or a changing clinical situation may require modification of this regimen. Consult [facility] Interventional Cardiology for questions. The 1 year bleeding risk as calculated by the PRECISE DAPT score is Moderate risk. 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 IMAGING: CT Abdomen & Pelvis wwo Contrast (GI BLEED) Narrative: EXAMINATION: CT ABDOMEN AND PELVIS WWO CONTRAST (GI BLEED) CLINICAL HISTORY: Significant Hb drop. Unknown source. has had a [facility] with stent placed and revascularization of left lower extremity within the past two weeks, recently on anticoagulation Unknown source of bleeding TECHNIQUE: Helical CT of the abdomen and pelvis was performed before and after the intravenous administration contrast utilizing GI bleed protocol. Administered 125.0 ml of OMNIPAQUE 350.00 mg/ml. Oral contrast was not administered. COMPARISON: 05/15/[address] [facility] FINDINGS: GI Tract: Pre-contrast: No bowel dilatation or intraluminal hemorrhage. Arterial phase: No active contrast extravasation. Portal venous phase: There is no active extravasation or pooling of contrast. No dilated loops of bowel, bowel wall thickening or abnormal enhancement. Peritoneum: No ascites or free air, no fluid collection. Lung bases: Mild RIGHT basilar pleural thickening/scarring Liver: Normal size, no focal lesions. Bile ducts: Non-dilated Gallbladder: No calcified gallstones. Normal caliber wall. Pancreas: Normal size, no focal lesions. Spleen: Normal size, no focal lesions. Adrenals: Normal size, no focal lesions. Kidneys: Symmetric enhancement. No collecting system obstruction bilaterally. 5 mm nonobstructing LEFT lower pole calculus. Urinary Bladder: Normal size, no focal lesions. Lymph Nodes: [No enlarged lymph nodes. Vasculature: Patent common iliac, external iliac, and common femoral arteries bilaterally. Post revascularization of the LEFT common femoral artery. Abdominal wall: Postoperative stranding noted in LEFT inguinal soft tissues. No barrett hematoma. Reproductive organs: Calcifications in the prostate gland as well as 2 fiducial implants. Osseous structures: No suspicious lesions. Impression: 1. No active extravasation/bleeding. 2. Mild soft tissue stranding noted in the LEFT inguinal region secondary to procedure. No barrett hematoma. Thank you for letting us participate in the care of this patient. If you are a health care provider and have any questions regarding this report, please contact the number below. For patients who have questions please contact the health care management associate that requested your imaging first. [place] 48 Hrs-15 Days Indication: Paroxysmal atrial fibrillation Analysis time 7 days Maximum heart rate 185 bpm Minimum heart rate 55 bpm Average heart rate 99 bpm Permanent atrial fibrillation was present. Heart rates ranged from 55 to 185 bpm with an average of 99 bpm. Isolated ventricular ectopy was present. Rates of the atrial fibrillation trended toward more rapid. Impression: 1. Continuous atrial fibrillation with episodes of rapid ventricular response XR Chest PA & Lateral (Generic) Narrative: EXAMINATION: XR CHEST PA AND LATERAL (GENERIC) CLINICAL HISTORY: CHAMBESR, Fatigue. HFrEF, recent LHC with stent placed. ?pulmonary edema TECHNIQUE: PA and lateral views of the chest, 2 images COMPARISON: Chest radiograph 05/16/2022 FINDINGS: There are median sternotomy wires and mediastinal surgical clips. No focal consolidation. There is mild pulmonary vascular congestion. Prior pulmonary interstitial edema has resolved. No pneumothorax. No pleural effusions. Unchanged mild cardiomegaly. Hilar are normal in size. Status post vertebroplasty at 2 thoracic levels. Impression: No findings to suggest pneumonia. Prominent pulmonary vascular without overt interstitial or pulmonary edema. I have personally reviewed the image(s) and the resident's interpretation and agree with the findings, Alan Brink MD at 05/31/2022 11:33 AM Thank you for letting us participate in the care of this patient. If you are a health care provider and have any questions regarding this report, please contact the number below. For patients who have questions please contact the health care management associate that requested your imaging first. Recent Labs 06/01/22 0556 06/01/22 0000 05/31/22 2117 WBC 9.7* 8.7 6.7 HGB 9.0* 8.6* 8.5* HCT 26.7* 25.7* 25.7* PLATELET 250 260 233 Recent Labs 06/01/22 0100 05/31/22 1050 NA 141 140 K 4.0 4.1 CL 108* 107 CO2 24 23 BUN 23* 39* CREATININE 0.78* 0.91 Recent Labs 05/31/22 1050 AST 24 ALT 44 ALKPHOS 63 BILITOT <0.2* BILIDIR 0.1 Recent Labs 06/01/22 0100 05/31/22 1050 CALCIUM 8.6 9.1 MAGNESIUM 0.93 0.93 PHOS -- 3.2 No results for input(s): INR, PT, PTT in the last 168 hours. Recent Labs 05/31/22 1050 TROPONINT <0.01 ProBNP Date Value Ref Range Status 05/31/2022 1,077 (H) <=449 pg/mL Final Assessment 81 y.o. male with a cardiac history significant for remote mitral valve repair (2000), pre-DM, HLD, significant alcohol use, tobacco use, Afib on xarelto, ischemic systolic heart failure (recent [facility] 05/20/2022 with 2V disease OM1 and distal RCA, had ostial LCX and LCx stent), recent admission for acutelimb ischemia LLE, where he had left common femoral transverse arteriotomy and primary repair, thromboembolectomy of the SFA, profunda and common femoral artery with 4 compartment fasciotomies, who presented to [facility] on 05/31/2022 for GI bleed. Cardiology consulted for antiplatelet/anticoag regimen. Although ideally we would have patient on triple therapy with ASA / Plavix / anticoagulant for 1 months after PCI (got 05/20), it is reasonable to just do Plavix + Eliquis (would switch d/t decreased bleeding risk) at discharge Recommendations #CAD #S/p recent PCI to OM and LCx on 05/20/2021 #Afib -Reasonable to discontinue aspirin, keep Plavix and DOAC. Would switch to apixaban bid at discharge if insurance covers given less bleeding risk -Would check with vascular if this regimen ok with them -F/u cardiology outpatient here (patient should be seen here at given his cath was done here and consideration of RCA lesion) Case tdiscussed with attending. Please see attestation for additional insight. Rossy Anaya MD [facility] Associate Director Regulatory Affairs, PGY-5 Inpatient Cardiology Consults Pager #[phone] Please check [facility]enda for on-call cardiology consults fellow/team during weekdays. Associated attestation - Rhys Rizo MD - 06/02/2022 11:44 AM EDT I have seen the patient in person and reviewed Dr. Anaya's above history and I agree with the details as written. The assessment and plan were formulated in discussion with me and I agree with them as documented. Mr. 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 Agree that it is reasonable to stop aspirin. Would suggest switching Xarelto to apixaban given significantly lower risk of GI bleeding with apixaban compared to Xarelto. Restart Valsartan when BPs allow (would plan to switch to Entresto as outpatient). Follow-up with cardiology as outpatient. Rhys Rizo MD, MPH Cardiovascular Medicine Plan of Care - Trinidad Saenz RN - 06/01/2022 6:03 PM EDT OUTCOME EVALUATION NOTE: OUTCOME SUMMARY: Patient A&Ox 4. On room air. VSS. LBM: SPOOL SALVAGER. Adequate urine output, urinal at bedside, flomax restarted. UFH elevated at 1130, see MAR. Recheck UFH needed at 1855. PLAN MOVING FORWARD: Anticoagulant-- on heparin gtt, will bridge to eliis per cardio Q4 vitals Q4 I&Os Pain management OOB as tolerated PT/OT Encourage self demonstration of ADLs Discharge planning INDIVIDUALIZED FALL PREVENTION INTERVENTIONS: Patient-specific fall risk factors per assessment: [current deficits]: IV sites, EKG leads, SPO2 cord, O2 tubing, BP cuff/cord, generalized weakness Assistance [level of assistance required for transfers and ambulation]: x1 assist Supervision [direct monitoring required during toileting and ADLs]: Hands-on Surveillance [continuous indirect monitoring]: redding monitor, Q2 safety checks, purposeful hourlyrounding, bed alarm set Initial Assessments - Luc Booker MSW - 06/01/2022 2:30 PM EDT Office of Care Management Initial Assessment ASH Byers reviewed record and discussed patient with Care Team. Source of Information: Team, bedside nurse, medical record, and Chart Review (Unable to speak with patient or after multiple attempts) Reason for Hospitalization: GIB Covid Vaccination Status: 1st, 2nd & booster Last COVID test: Past medical History: No past medical history on file. Hospitalizations Within the Past 30 Days: current reason for admission unrelated to previous admission Current Decision-Making Capacity: Self If AD's have not been completed the following surrogate would be surrogate decision maker per [place] decision making law. (Only good for 180 days) Any patient receiving care in [place] must abide by [place] law. The hierarchy for surrogate decision making is: (a) Patient???s spouse, or civil union partner or common law spouse unless there is a divorce proceeding, separation agreement, or restraining order limiting that person???s relationship with the patient. (b) Any adult son or daughter of the patient. (c) Either parent of the patient. (d) Any adult brother or sister of the patient. (e) Any adult grandchild of the patient. (f) Any grandparent of the patient. (g) Any adult aunt, uncle, niece, or nephew of the patient. (h) A close friend of the patient. (i) The agent with financial power of trial attorney or a conservator appointed in accordance with RSA 464-A. (j) The guardian of the patient???s estate. Advance Care Planning: Attempt Cardiopulmonary Resuscitation - Inpatient <no information> -Advanced Directive: No, need to discuss ( Ursula Zamora - per surrogacy) Current Coping/Education/Information Needs: Patient appears to be coping well and making his needs known. Patient may benefit from AD education/information. Current Functional Ability: Assistive Person Functional Status Prior to Admission: Assistive Equipment Prior ADLs & IADLs: Independent with all ADLs & IADLs Home Environment: Others in the home: spouse. Current Living Arrangements: home/apartment/condo. Accessibility Concerns:4STE. Resource / Environmental Concerns: Resource/Environmental Concerns: none Current DME: commode chair, raised toilet seat, walker - rolling Home Address confirmed as: [address] [place] [phone] Social & Family Supports: All names listed below confirmed with patient as current and correct Extended Emergency Contact Information Primary Emergency Contact: Ursula Zamora [address]: [address] [place] [phone] [facility] Relation: Spouse Current Care Provided by: self Provides Primary Care For: no one Caregiver if needed: none Quality of Family relationships: involved, helpful, supportive Community Resources being provided currently: clinic(s) (Cardiology, GI, and Vascular) Behavioral Health History: AUD Substance Use/Abuse confirmed: Social History Tobacco Use Smoking Status Former Smoker ??? Packs/day: 0.50 ??? Years: 50.00 ??? Pack years: 25.00 ??? Types: Cigarettes Smokeless Tobacco Never Used In the past year have you used an illegal drug or used a prescription medication for non-medical reasons?: No 0 No problems reported 1-2 Low level 3-5 Moderate level 6-8 Substantial level 9- 10 Severe level In the past year have you had 5 or more drinks a day containing alcohol?: No 0 to 7 points: Low risk 8 to 15 points: Medium risk 16 to 19 points: High risk 20 to 40 points: Addiction likely Other Pertinent/Service Specific Information: Patient may benefit from VNA services pending hospitalcourse. Health/Prescription Coverage: Primary Insurance: MEDICARE Payor: MEDICARE / Plan: MEDICARE PART A & B / Product Type: *No Product type* / Secondary Insurance: [facility] Secondary Insurance? (Only Medicare A&B): Yes ; Prescription Coverage: Yes Preferred Pharmacy: [id number] [address] [place] Status: Patient is a : No Primary Care Provider: Bobby Das MD [phone] Patient/Caregiver Goals of Treatment: Patient plans to discharge home Potential Needs for Transition of Care: home health care (Possible VNA need) Agency Referrals: To be determined pending medical status and functional progress. Transportation: no concerns Transportation Anticipated: family or friend will provide Concerns to be Addressed: no discharge needs identified Assessment: Patient is a 81 year old male admitted for a GI bleed. Plan: No SW needs identified at this time. A member of the Care Management team will continue to monitor progress, follow for continuity of care and assist with transition of care planning. ASH Garcia [employer] Supervisor [facility] Medicine/ Medical Specialties Pager- [phone] Plan of Care - Ravne Barbour RN - 06/01/2022 6:29 AM EDT OUTCOME EVALUATION NOTE: OUTCOME SUMMARY: Koko transferred from ED ~2029. A&O x4, VSS on RA. Heparin gtt infusing per orders, UFH drawn at 0430, therapeutic, no change in dose per orders, recheck due at 1030. Voiding in urinal. Labs drawn, see results. ~0100 hypotensive, 90/62, recheck 89/53, MD aware, no new orders. Held 0600 metoprolol per MD verbal orders. Pt rested comfortably between care. PLAN MOVING FORWARD: Monitor BP Heparin gtt Monitor labs - q6h CBC INDIVIDUALIZED FALL PREVENTION INTERVENTIONS: Patient-specific fall risk factors per assessment: [current deficits]: cords/wires, hypotension, generalized weakness Assistance [level of assistance required for transfers and ambulation]: 1-2A Supervision [direct monitoring required during toileting and ADLs]: hands on Surveillance [continuous indirect monitoring]: [place] ISCU monitoring, call light within reach, purposeful rounding, environmental modifications, bed alarm set Patient-specific fall prevention interventions for sensory deficits provided, if applicable: [X] N/A CPG GOAL OUTCOME EVALUATION: Consult Note - Lonnie Good, [facility] - 05/31/2022 9:42 PM EDT TelePharmacy Home Medication List Update for Medication Reconciliation 05/31/22 9:43 PM Koko Sullivan Zamora 1940 Allergies Allergen Reactions ??? Aspirin Other (See Comments) GI bleed ??? Person Interviewed: patient ??? Quality of Interview/accuracy of medication list: Fair ??? Sources used to compile medication list: [x] Epic medication list [x] SureScripts [] PCP/Specialist list [] Retail pharmacy [] Patient list [] MAR [] Other ??? Changes made to home medication list: o Additions: - none o Deletions: - none o Changes: - none ??? Additional Notes: has been taking valsartan once daily d/t low BP. ??? Recommended changes: None at this time The home medication list is now updated to the best of my knowledge and is ready to be reconciled bythe provider. Please contact the TelePharmacy Medication Reconciliation Pharmacist at for any questions. Lonnie Good RP Op Note - Giovani Ponce MD - 05/31/2022 4:30 PM EDT DH Operative Note Patient Name: Koko Zamora : [id number] MR#: [id number] Case Date: 05/31/2022 Surgeon: Surgeon(s) and Role: * Giovani Ponce MD - Primary Procedure(s): EGD, UPPER GI ENDOSCOPY EGD, W CONTROL OF BLEEDING, ANY METHOD Please see Provation report for details. Consult Note - Isi Celaya MD - 05/31/2022 2:14 PM EDT Images from the original note were not included. DIVISION OF GASTROENTEROLOGY & HEPATOLOGY INITIAL CONSULT REQUESTING PROVIDER: Regina Hinds MD NAME: Koko aZmora : 1940 HPI: 81yo M w/PMH of remote mitral valve repair (2000), prediabetes, hyperlipidemia, significant alcohol use, and tobacco use who was recently admitted to Vascular Surgery service with acute LLE limb ischemia for which he underwent left femoral cutdown with thromboembolectomy 05/15/22 w/course c/b Afib w/RVR, and HFrEF. ?? He returns to ED w/ significant symptomatic anemia w/Hgb drop from ~11 to 6.9. He is currently on triple therapy with aspirin, plavix and xarelto. He notes he had a GI bleed about 20 yrs ago when on anaspirin regimen - he thinks he had an ulcer in his stomach and he bled out - he fainted and went to the hospital where he got 2units pRBCs and stopped ASA. He is not sure if they did a procedure to look in his stomach. He has had colonoscopies before in [place] - notes first ever he had 6 polyps removed but last colo 5 yrs ago was normal. He lives in [facility]. Currently light-headedness is improved. No fevers, chills, night sweats. No SOB or CP. No longer feeling woozy. No N/V or abdominal pain. Notes when he tries to go to the bathroom he gets cramping (since discharge). He has been having normal BMs once a day, but last night was constipated and felt liketrying to pass a brick. Last night was dark, rock solid stool for which he had to strain. No alcohol use, stopped 2 weeks ago. Denies any NSAID use in last month. ROS: 10-system ROS negative other than that noted above PAST MEDICAL & SURGICAL HX: No past medical history on file. Past Surgical History: Procedure Laterality Date ??? IR BIOPSY SPINE 07/20/2019 IR Biopsy Spine 07/20/2019 Bobby Marshall MD [facility] INTERVENTIONL RAD ??? IR VERTEBROPLASTY LUMBAR MULTIPLE LEVELS 07/20/2019 IR Vertebroplasty Lumbar Multiple Levels 07/20/2019 Bobby Marshall MD [facility] INTERVENTIONL RAD ??? IR VERTEBROPLASTY THORACIC SINGLE LEVEL 10/25/2020 IR Vertebroplasty Thoracic Single Level 10/25/2020 Matt Chisholm MD [facility] INTERVENTIONL RAD ??? PRO EMBLC/THRMBC FEMORAL POPLITEAL AORTO-ILIAC ARTERY Left 05/15/2022 EMBOLECTOMY OR THROMBECTOMY, FEMOROPOPLITEAL, AORTOILIAC ARTERY BY LEG INCISION (WRVU 19.48) performed by Fito Summers MD at [facility] MAIN OR SOCIAL HX: Social History Socioeconomic History ??? Marital status: [...] on file Housing Stability: Not on file FAMILY HX: No family history on file. MEDICATIONS Medication list personally reviewed Home Meds: (Not in a hospital admission) Current Meds: Scheduled: Drips: PRN: Allergies: Allergies Allergen Reactions ??? Aspirin Other (See Comments) GI bleed OBJECTIVE Vitals: T Temp: [36.9 ??C (98.4 ??F)] HR Heart Rate: [76-122] BP BP: (78-104)/(48-72) RR Resp: [13-20] SpO2 SpO2: [96 %-100 %] IO No intake/output data recorded. Wt Last 77.1 kg (170 lb) Admit 77.11 kg Physical Exam: CONST: Awake, alert, no acute distress HEENT: sclerae anicteric, moist mucous membranes, no oral thrush GI: well-healed scars, abdomen soft, non-tender, non-distended, normoactive bowel sounds, tympanic to percussion RECTAL: performed with corporate officer present, no overt masses, fissures, external hemorrhoids, or prolapse; non-tender to palpation without perianal fluctuance, normal resting sphincter tone, large amountsof dark, hard stool in the vault MSK: legs warm, palpable pulses b/l, no significant edema SKIN: No jaundice, rash, or bruising NEURO: Grossly intact, moves all extremities, no asterixis PSYCH: Pleasant, appropriate affect Labs: Labs personally reviewed in eDH CBC: Recent Labs 05/31/22 1244 05/31/22 1050 WBC 7.6 8.3 HGB 6.9* 7.4* PLATELET 255 283 MCV 98.6* 98.7* RDWCV 13.4 13.4 COAG: No results for input(s): PTT, INR, PT in the last 168 hours. CHEM: Recent Labs 05/31/22 1050 CREATININE 0.91 BUN 39* NA 140 K 4.1 CL 107 CO2 23 MAGNESIUM 0.93 CALCIUM 9.1 HEPATIC: No results for input(s): BILITOT, BILIDIR, ALKPHOS, AST, ALT, ALBUMIN, LIPASE in the last 168 hours. Invalid input(s): TPROT INFLAMM: No results for input(s): CRP in the last 168 hours. IMAGING: Reports and images personally reviewed in eDH. Images independently interpreted. XR Chest PA & Lateral (Generic) Final Result No findings to suggest pneumonia. Prominent pulmonary vascular without overt interstitial or pulmonary edema. I have personally reviewed the image(s) and the resident's interpretation and agree with the findings, Alan Brink MD at 05/31/2022 11:33 AM Thank you for letting us participate in the care of this patient. If you are a health care provider and have any questions regarding this report, please contact the number below. For patients who have questions please contact the health care management associate that requested your imaging first. Abdomen & Pelvis w Contrast (Results Pending) ENDOSCOPY: Reports and images personally reviewed in eDH ASSESSMENT & PLAN: Mr. Zamora is a 81yo M w/PMH of remote mitral valve repair (2000), prediabetes, hyperlipidemia, significant alcohol use, and tobacco use who was recently admitted to Vascular Surgery service with acute LLE limb ischemia for which he underwent left femoral cutdown with thromboembolectomy 05/15/22 w/course c/b Afib w/RVR, and HFrEF, discharged on 05/21, who presents today with symptomatic anemia w/Hgb drop from 11 to 6.9. Overall, very suspicious for ulcer given the tempo of event, triple therapy since discharge, and symptoms. We will bring him up to endoscopy for EGD. Could also be dieulafoy vs gastritis but worth evaluating iso significant Hgb drop. Agree w/transfusion and PPI. Pending EGD, will need to discuss risks/benefits w/AC. Plan: - NPO for EGD - IV PPI BID - f/u path Patient seen with Dr. Jorge Celaya MD PGY-4, Gastroenterology documented in this encounter Plan of Treatment Upcoming Encounters Date Type Specialty Care Team Description 07/02/2022 Office Visit Vascular Surgery Jing Ghosh, [facility] VASCULAR SURGERY [place], [place] [address] (Wo rk) 09/02/2022 Clinical Support Dermatology Thai Lynn MD [facility] DR JENNY BILLY[place]DERMAT [place], [place] [address] (Wo rk) 09/02/2022 Procedure visit Dermatology Jace Lynn MD [facility] DR JENNY BILLY[place], [place] [address] (Wo rk) 09/05/2022 Appointment Cardiology Trinity Reid MD [facility] CARDIOLOGY [place], [place] [address] (Wo rk) 09/05/2022 Office Visit Cardiology Trinity Reid MD [facility] CARDIOLOGY [place], [place] [address] (Wo rk) documented as of this encounter Procedures Procedure Name Priority Date/Time Associated Comments Diagnosis HEMOGRAM Routine 06/02/2022 8:20 AM Results f or this EDT procedure are i n the results section. DIFFERENTIAL, AUTOMATED Routine 06/02/2022 8:20 AM Results for this EDT procedure are i n the results section. HC CBC,PLT & AUTO DIFF Routine 06/02/2022 8:20 AM EDT HC UNFRACTIONATED Routine 06/02/2022 6:30 AM Resu lts for this HEPARIN (HEP UFH) EDT procedure are in the results section. [...] the results section. HC UNFRACTIONATED Routine 06/01/2022 7:29 PM Resu lts for this HEPARIN (HEP UFH) EDT procedure are in the results section. HEMOGRAM Routine 06/01/2022 7:29 PM Results f or this EDT procedure are i n the results section. DIFFERENTIAL, AUTOMATED Routine 06/01/2022 7:29 PM Results for this EDT procedure are i n the results section. HC CBC,PLT & AUTO DIFF Routine 06/01/2022 7:29 PM EDT HC UNFRACTIONATED Routine 06/01/2022 11:32 Result s for this HEPARIN (HEP UFH) AM EDT procedure are in the results section. HEMOGRAM Routine 06/01/2022 5:56 AM Results f or this EDT procedure are i n the results section. DIFFERENTIAL, AUTOMATED Routine 06/01/2022 5:56 AM Results for this EDT procedure are i n the results section. HC CBC,PLT & AUTO DIFF Routine 06/01/2022 5:56 AM EDT HC UNFRACTIONATED Routine 06/01/2022 4:30 AM Resu lts for this HEPARIN (HEP UFH) EDT procedure are in the results section. URINALYSIS WITH REFLEX Routine 06/01/2022 4:00 AM Results for this CULTURE EDT procedure are i n the results section. HC MAGNESIUM, SERUM Routine 06/01/2022 1:00 AM Re sults for this EDT procedure are i n the results section. BASIC METABOLIC PANEL Routine 06/01/2022 1:00 AM Results for this (NON-FASTING) EDT procedure are in the results section. HEMOGRAM Routine 06/01/2022 12:00 Results for this AM EDT procedure are i n the results section. DIFFERENTIAL, AUTOMATED Routine 06/01/2022 12:00 Results for this AM EDT procedure are i n the results section. HC CBC,PLT & AUTO DIFF Routine 06/01/2022 12:00 AM EDT HEMOGRAM Routine 05/31/2022 9:17 PM Results f or this EDT procedure are i n the results section. DIFFERENTIAL, AUTOMATED Routine 05/31/2022 9:17 PM Results for this EDT procedure are i n the results section. HC CBC,PLT & AUTO DIFF Routine 05/31/2022 9:17 PM EDT EGD, W CONTROL OF 05/31/2022 4:05 PM melena BLEEDING, ANY METHOD EDT EGD, UPPER GI ENDOSCOPY 05/31/2022 4:05 PM melena EDT UPPER GI ENDOSCOPY Routine 05/31/2022 3:37 PM Res ults for this EDT procedure are i n the results section. CT ABDOMEN AND PELVIS STAT 05/31/2022 2:28 PM Results for this WWO CONTRAST (GI BLEED) EDT proc edure are in the results section. TRANSFUSE RED BLOOD Routine 05/31/2022 2:03 PM CELLS EDT TYPE AND SCREEN STAT 05/31/2022 1:43 PM Result s for this VALIDITY EDT procedure are i n the results section. ABORH RECHECK STATUS STAT 05/31/2022 1:43 PM R esults for this EDT procedure are i n the results section. ABO/RH TYPING STAT 05/31/2022 1:43 PM Results for this EDT procedure are i n the results section. ANTIBODY SCREEN STAT 05/31/2022 1:43 PM Result s for this EDT procedure are i n the results section. HC ANTIBODY STAT 05/31/2022 1:43 PM DETECTION,CAPTURE-R EDT PREPARE RBC STAT 05/31/2022 1:35 PM Results f or this EDT procedure are i n the results section. PREPARE RBC STAT 05/31/2022 1:25 PM Results f or this EDT procedure are i n the results [...] AUTO DIFF STAT 05/31/2022 10:50 AM EDT HC TROPONIN T STAT 05/31/2022 10:50 Results [...] EDT procedure are in the results section. EKG 12-LEAD STAT 05/31/2022 10:11 Results for this AM EDT procedure are i n the results section. documented in this encounter Results (ABNORMAL) Differential, Automated (06/02/2022 8:20 AM EDT) athologist Signature Neutrophils % 61.3 % [facility] Neutr Abs (ANC) 4.44 1.70 - [facility] 6.10 [facility] x10(3)/[facility] LABORATORY Lymphocytes % 25.2 % [facility] Lymphocytes Abs 1.8 0.9 - 3.2 [facility] x10(3)/[facility] LABORATORY Monocytes % 10.0 % [facility] Monocyte Abs 0.7 0.3 - 0.9 [facility] x10(3)/[facility] LABORATORY Eosinophils % 2.1 % [facility] Eosinophils Abs 0.2 0.0 - 0.4 [facility] x10(3)/[facility] LABORATORY Basophils % 0.7 % [facility] Basophils Abs 0.0 0.0 - 0.1 [facility] x10(3)/[facility] LABORATORY Immature Gran % 0.70 % [facility] Comment: Immature granulocytes(IG's)percentage an d absolute count will include metamyelocytes, myelocytes, and promyelo cytes. Blood smears from CBCs yielding IG's will be scanned manually for concor dance. If this scan disagrees with the automated IG or if promyelocytes are not ed, a manual differential will be performed. Rain Gran Abs 0.05 (H) 0.00 - 0.04 x10(3)/[facility] LABORATORY Specimen Anatomical Collection Method Collection Time Receive d Time (Source) Location / / Volume Laterality Blood 06/02/2022 8:20 AM 8:25 EDT AM EDT Resulting Agency Comment Spec In Lab Kurt Ames MD HEMATOLOGY ORDERABLES Performing Organization Address City/State/[place] [address] (ABNORMAL) Hemogram (06/02/2022 8:20 AM EDT) Analysis Performed At Patho logist Time Signature WBC 7.2 4.0 - 9.5 [facility] x10(3)/[facility] LABORATORY RBC 2.74 (L) 4.58 - [facility] 5.54 [facility] x10(6)/[facility] LABORATORY Hemoglobin 8.7 (L) 13.7 - [facility] g/dL [facility] Hematocrit 25.7 (L) 40.5 - [facility] % [facility] MCV 93.8 (H) 82.9 - [facility].1 fL [facility] MCH 31.8 27.5 - [facility] 32.1 pg [facility] MCHC 33.9 32.0 - [facility] 35.7 g/dL [facility] Platelets 260 145 - 357 [facility] x10(3)/[facility] LABORATORY RDWSD 51.0 (H) 36.0 - [place] [place] 45.0 [facility] LABORATORY RDWCV 14.9 (H) 11.4 - [facility] XIAO 13.8 % [facility] MPV 10.0 7.6 - 12.9 [facility] LABORATORY nRBC % Auto 0.0 % [facility] nRBC Abs Auto 0.000 0.000 - [facility] 0.000 [facility] x10(3)/[facility] LABORATORY Specimen Anatomical Collection Method Collection Time Receive d Time (Source) Location / / Volume Laterality Blood 06/02/2022 8:20 AM 2 8:25 EDT AM EDT Resulting Agency Comment Spec In Lab Kurt Ames MD HEMATOLOGY ORDERABLES Performing Organization Address City/State/[place] [address] Heparin (unfractionated) Level (06/02/2022 6:30 AM EDT) P athologist Signature Heparin UFH 0.39 IU/mL [facility] LABORATORY Comment: Heparin (anti-Xa) levels should be [...] / Volume Laterality Blood 06/02/2022 6:30 AM 2 6:49 EDT AM EDT Resulting Agency Comment Spec In Lab Mahendra Victor MD HEMATOLOGY ORDERABLES Performing Organization Address City/[facility]/[place] [address] Heparin (unfractionated) Level (06/02/2022 12:30 AM EDT) athologist Signature Heparin UFH 0.81 IU/mL [facility] LABORATORY Comment: Heparin (anti-Xa) levels should be [...] Victor MD HEMATOLOGY ORDERABLES Performing Organization Address City/[facility]/[place] [address] Magnesium (06/02/2022 12:30 AM EDT) P athologist Signature Magnesium 0.83 0.69 - 1.07 [facility] mmol/L [facility] Specimen Anatomical Collection Method Collection Time Receive d Time (Source) Location / / Volume Laterality Blood 06/02/2022 12:30 06/02/2022 AM EDT 12:40 AM EDT Resulting Agency Comment Spec In Lab Mahendra Victor MD CHEMISTRY ORDERABLES Performing Organization Address City/[facility]/[place] [address] (ABNORMAL) Basic Metabolic Panel (non-fasting) (06/02/2022 12:30 AM EDT) P athologist Signature Glucose Lvl 151 65 - 199 [facility] mg/dL [facility] Comment: Diabetes: >=200 mg/dL plus symp toms BUN 12 10 - 20 mg/dL [facility] Creatinine 0.71 (L) 0.80 - 1.50 mg/dL [facility] Sodium 142 135 - 145 mmol/L [facility] Potassium 3.8 3.5 - 5.0 mmol/L [facility] Comment: Please note: ??Patients with WBC >100,00 0 may have falsely elevated Potassium levels. ??For accurate Potassium quantif ication in these patients send serum separator tube (gold top) for subsequent determinations. ??Contact the Clinical Chemistry Laboratory if there are any qu estions. Chloride 108 (H) 98 - 107 mmol/L [facility] CO2 24 22 - 31 mmol/L [facility] Anion Gap 10 5 - 15 mmol/L [facility] Calcium 8.1 (L) 8.5 - 10.5 mg/dL [facility] Estimated GFR 93 >=60 mL/min/1.73 m?? [facility] Comment: This patient's estimated [...] Victor MD CHEMISTRY ORDERABLES Performing Organization Address City/[facility]/ZIP Code Phon e Number [place] [phone] [facility] LAB[address]ORY Drive (ABNORMAL) Differential, Automated (06/01/2022 7:29 PM EDT) P athologist Signature Neutrophils % 68.8 % [facility] Neutr Abs (ANC) 5.34 1.70 - [facility] 6.10 [facility] x10(3)/[facility] LABORATORY Lymphocytes % 19.6 % [facility] Lymphocytes Abs 1.5 0.9 - 3.2 [facility] x10(3)/[facility] LABORATORY Monocytes % 8.1 % [facility] Monocyte Abs 0.6 0.3 - 0.9 [facility] x10(3)/[facility] LABORATORY Eosinophils % 1.8 % [facility] Eosinophils Abs 0.1 0.0 - 0.4 [facility] x10(3)/[facility] LABORATORY Basophils % 0.8 % [facility] Basophils Abs 0.1 0.0 - 0.1 [facility] x10(3)/[facility] LABORATORY Immature Gran % 0.90 % [facility] Comment: Immature granulocytes(IG's)percentage an d absolute count will include metamyelocytes, myelocytes, and promyelo cytes. Blood smears from CBCs yielding IG's will be scanned manually for concor dance. If this scan disagrees with the automated IG or if promyelocytes are not ed, a manual differential will be performed. Rain Gran Abs 0.07 (H) 0.00 - 0.04 x10(3)/[facility] LABORATORY Specimen Anatomical Collection Method Collection Time Receive d Time (Source) Location / / Volume Laterality Blood 06/01/2022 7:29 PM 7:29 EDT PM EDT Resulting Agency Comment Spec In Lab Kurt Ames MD HEMATOLOGY ORDERABLES Performing Organization Address City/[facility]/[place] [address] (ABNORMAL) Hemogram (06/01/2022 7:29 PM EDT) Analysis Performed At Patho logist Time Signature WBC 7.8 4.0 - 9.5 [facility] x10(3)/[facility] LABORATORY RBC 2.65 (L) 4.58 - [facility] 5.54 [facility] x10(6)/[facility] LABORATORY Hemoglobin 8.3 (L) 13.7 - [facility] g/dL [facility] Hematocrit 24.8 (L) 40.5 - [facility] 48.[facility] % [facility] MCV 93.6 (H) 82.9 - [facility] LABORATORY MCH 31.3 27.5 - [facility] 32.1 pg [facility] MCHC 33.5 32.0 - [facility] 35.7 g/dL [facility] Platelets 263 145 - 357 [facility] x10(3)/[facility] LABORATORY RDWSD 52.8 (H) 36.0 - [facility] XIAO 45.0 [facility] LABORATORY RDWCV 15.4 (H) 11.4 - [facility] XIAO 13.8 % [facility] MPV 10.4 7.6 - 12.9 [facility] LABORATORY nRBC % Auto 0.0 % [facility] nRBC Abs Auto 0.000 0.000 - [facility] XIAO 0.000 [facility] x10(3)/[facility] LABORATORY Specimen Anatomical Collection Method Collection Time Receive d Time (Source) Location / / Volume Laterality Blood 06/01/2022 7:29 PM 7:29 EDT PM EDT Resulting Agency Comment Spec In Lab Kurt Ames MD HEMATOLOGY ORDERABLES Performing Organization Address City/State/[place] [address] Heparin (unfractionated) Level (06/01/2022 7:29 PM EDT) P athologist Signature Heparin UFH 0.81 IU/mL [facility] LABORATORY Comment: Heparin (anti-Xa) levels should be [...] (Source) Location / / Volume Laterality Blood 06/01/2022 7:29 PM 7:29 EDT PM EDT Resulting Agency Comment Spec In Lab Mahendra Victor MD HEMATOLOGY ORDERABLES Performing Organization Address City/State/ZIP Code Phon e Number [place] [phone] HOS[address]ITAL [address] (ABNORMAL) Heparin (unfractionated) Level (06/01/2022 11:32 AM EDT) [facility] Method Time Signature Heparin UFH 1.05 IU/mL [facility] (Critical) [facility] Comment: Critical Result called by ?? FINDTM CRI TICAL Results read back by: ? Giana Deng at 2022-06-01 11:46:34 Heparin (anti-Xa) levels should be deter mined [...] (Source) Location / / Volume Laterality Blood 06/01/2022 11:32 06/01/2022 AM EDT 11:32 AM EDT Resulting Agency Comment Spec In Lab Mahendra Victor MD HEMATOLOGY ORDERABLES Performing Organization Address City/State/[place] [address] (ABNORMAL) Differential, Automated (06/01/2022 5:56 AM EDT) [facility] Method Time Signature Neutrophils % 62.7 % [facility] LABORATORY Neutr Abs (ANC) 6.11 (H) 1.70 - [facility] 6.10 [facility] x10(3)/[facility] LABORATORY Lymphocytes % 23.5 % [facility] LABORATORY Lymphocytes Abs 2.3 0.9 - 3.2 [facility] x10(3)/[facility] LABORATORY Monocytes % 10.0 % [facility] LABORATORY Monocyte Abs 1.0 (H) 0.3 - 0.9 [facility] x10(3)/[facility] LABORATORY Eosinophils % 2.2 % [facility] LABORATORY Eosinophils Abs 0.2 0.0 - 0.4 [facility] x10(3)/[facility] LABORATORY Basophils % 0.9 % [facility] LABORATORY Basophils Abs 0.1 0.0 - 0.1 [facility] x10(3)/[facility] LABORATORY Immature Gran % 0.70 % [facility] LABORATORY Comment: Immature granulocytes(IG's)percentage an d absolute count will include metamyelocytes, myelocytes, and promyelo cytes. Blood smears from CBCs yielding IG's will be scanned manually for concor dance. If this scan disagrees with the automated IG or if promyelocytes are not ed, a manual differential will be performed. Rain Gran Abs 0.07 (H) 0.00 - 0.04 x10(3)/[facility] LABORATORY Specimen Anatomical Collection Method Collection Time Receive d Time (Source) Location / / Volume Laterality Blood 06/01/2022 5:56 AM 6:05 EDT AM EDT Resulting Agency Comment Spec In Lab Arpita Valle MD HEMATOLOGY ORDERABLES Performing Organization Address City/State/[place] [address] (ABNORMAL) Hemogram (06/01/2022 5:56 AM EDT) Analysis Performed At Patho logist Time Signature WBC 9.7 (H) 4.0 - 9.5 [facility] x10(3)/[facility] LABORATORY RBC 2.83 (L) 4.58 - [facility] 5.54 [facility] x10(6)/[facility] LABORATORY Hemoglobin 9.0 (L) 13.7 - [facility] g/dL [facility] LABORATORY Hematocrit 26.7 (L) 40.5 - [facility] 48.5 % [facility] LABORATORY MCV 94.3 (H) 82.9 - [facility] 93.1 [facility] LABORATORY MCH 31.8 27.5 - [facility] 32.1 pg [facility] LABORATORY MCHC 33.7 32.0 - [facility] 35.7 g/dL [facility] LABORATORY Platelets 250 145 - 357 [facility] LABORATORY RDWSD 54.3 (H) 36.0 - [facility] 45.0 [facility] LABORATORY RDWCV 15.9 (H) 11.4 - [facility] 13.8 % [facility] LABORATORY MPV 10.5 7.6 - 12.9 [facility] LABORATORY nRBC % Auto 0.0 % [facility] LABORATORY nRBC Abs Auto 0.000 0.000 - [facility] 0.000 [facility] x10(3)/[facility] LABORATORY Specimen Anatomical Collection Method Collection Time Receive d Time (Source) Location / / Volume Laterality Blood 06/01/2022 5:56 AM 6:05 EDT AM EDT Resulting Agency Comment Spec In Lab Arpita Valle MD HEMATOLOGY ORDERABLES Performing Organization Address City/State/[place] [address] Heparin (unfractionated) Level (06/01/2022 4:30 AM EDT) P athologist Signature Heparin UFH 0.68 IU/mL [facility] LABORATORY Comment: Heparin (anti-Xa) levels should be [...] (Source) Location / / Volume Laterality Blood 06/01/2022 4:30 AM 4:33 EDT AM EDT Resulting Agency Comment Spec In Lab Mahendra Victor MD HEMATOLOGY ORDERABLES Performing Organization Address City/State/[place] [address] (ABNORMAL) Urinalysis with reflex Culture (06/01/2022 4:00 AM EDT) Patholo gist Method Time Signature Glucose UA 500 Negative [facility] (Critical) mg/dL [facility] LABORATORY Comment: Urinalysis result NOT critical without a combination of Glucose greater than or equal to 500 mg/dL AND Ketones greate r than or equal to 80 mg/dL Protein UA Negative Negative mg/dL [facility] LABORATORY Bilirubin UA Negative Negative mg/dL [facility] LABORATORY Comment: Clinical correlation required for positi ve Urine Bilirubin results as false positive may occur with some drugs and d rug related products. If a false positive is suspected a serum total bili quarles should be considered if clinically indicated. Urobilinogen UA Normal Normal mg/dL [facility] LABORATORY pH UA 6.0 5.0 - 8.0 [facility] LABORATORY Blood UA Negative Negative mg/dL [facility] LABOR[facility]ORY Ketones UA Negative Negative mg/dL [facility] LABOR[facility]ORY Nitrite UA Negative Negative [facility] LABORATORY Leukocytes UA Negative Negative [facility] LABORATORY Appearance UA Clear Clear [facility] LABORATORY Spec Donie UA >=1.030 (A) 1.005 - 1.030 [facility] LABORATORY Color UA Yellow Yellow [facility] LABORATORY Culture Reflexed No [facility] LABORATORY Specimen Anatomical Collection Method Collection Time Receive d Time (Source) Location / / Volume Laterality Clean Catch 06/01/2022 4:00 AM 2 4:26 Urine EDT AM EDT Resulting Agency Comment Spec In Lab Mahendra Victor MD URINE ORDERABLES Performing Organization Address City/[facility]/ZIP Code Phon e Number [address] Magnesium (06/01/2022 1:00 AM EDT) athologist Signature Magnesium 0.93 0.69 - 1.07 [facility] mmol/L [facility] LABORATORY Specimen Anatomical Collection Method Collection Time Receive d Time (Source) Location / / Volume Laterality Blood 06/01/2022 1:00 AM 2 1:37 EDT AM EDT Resulting Agency Comment Spec In Lab Mahendra Victor MD CHEMISTRY ORDERABLES Performing Organization Address City/[facility]/ZIP Code Phon e Number [address] (ABNORMAL) Basic Metabolic Panel (non-fasting) (06/01/2022 1:00 AM EDT) P athologist Signature Glucose Lvl 148 65 - 199 [facility] mg/dL [facility] LABORATORY Comment: Diabetes: >=200 mg/dL plus symp toms BUN 23 (H) 10 - 20 mg/dL [facility] LABORATORY Creatinine 0.78 (L) 0.80 - 1.50 mg/dL [facility] LABORATORY Sodium 141 135 - 145 mmol/L [facility] LABORATORY Potassium 4.0 3.5 - 5.0 mmol/L [facility] LABORATORY Comment: Please note: ??Patients with WBC >100,00 0 may have falsely elevated Potassium levels. ??For accurate Potassium quantif ication in these patients send serum separator tube (gold top) for subsequent determinations. ??Contact the Clinical Chemistry Laboratory if there are any qu estions. Chloride 108 (H) 98 - 107 mmol/L [facility] LABORATORY CO2 24 22 - 31 mmol/L [facility]OR[facility] Anion Gap 9 5 - 15 mmol/L [facility] LABORATORY Calcium 8.6 8.5 - 10.5 mg/dL [facility] LABORATORY Estimated GFR 91 >=60 mL/min/1.73 m?? [facility] LABORATORY Comment: This patient's estimated [...] (Source) Location / / Volume Laterality Blood 06/01/2022 1:00 AM 2 1:37 EDT AM EDT Resulting Agency Comment Spec In Lab Mahendra Victor MD CHEMISTRY ORDERABLES Performing Organization Address City/State/[place] [address] (ABNORMAL) Differential, Automated (06/01/2022 12:00 AM EDT) P athologist Signature Neutrophils % 64.6 % [facility] LABORATORY Neutr Abs (ANC) 5.60 1.70 - [facility] 6.10 [facility] x10(3)/[facility] LABORATORY Lymphocytes % 22.4 % [facility] LABORATORY Lymphocytes Abs 1.9 0.9 - 3.2 [facility] x10(3)/[facility] LABORATORY Monocytes % 9.5 % [facility] LABORATORY Monocyte Abs 0.8 0.3 - 0.9 [facility] x10(3)/[facility] LABORATORY Eosinophils % 2.1 % [facility] LABORATORY Eosinophils Abs 0.2 0.0 - 0.4 [facility] x10(3)/[facility] LABORATORY Basophils % 0.6 % [facility] LABORATORY Basophils Abs 0.0 0.0 - 0.1 [facility] x10(3)/[facility] LABORATORY Immature Gran % 0.80 % [facility] LABORATORY Comment: Immature granulocytes(IG's)percentage an d absolute count will include metamyelocytes, myelocytes, and promyelo cytes. Blood smears from CBCs yielding IG's will be scanned manually for concor dance. If this scan disagrees with the automated IG or if promyelocytes are not ed, a manual differential will be performed. Rain Gran Abs 0.07 (H) 0.00 - 0.04 x10(3)/[facility] LABORATORY Specimen (Source) Anatomical Collection Method Collection Time Re ceived Time Location / / Volume Laterality Blood 06/01/2022 06/01/2022 12:1 0 AM EDT Resulting Agency Comment Spec In Lab Arpita Valle MD HEMATOLOGY ORDERABLES Performing Organization Address City/State/[place] [address] (ABNORMAL) Hemogram (06/01/2022 12:00 AM EDT) Analysis Performed At Patho logist Time Signature WBC 8.7 4.0 - 9.5 [facility] x10(3)/[facility] LABORATORY RBC 2.77 (L) 4.58 - [facility] 5.54 [facility] x10(6)/[facility] LABORATORY Hemoglobin 8.6 (L) 13.7 - [facility] 16.5 g/dL [facility] LABORATORY Hematocrit 25.7 (L) 40.5 - [facility] 48.[facility] % [facility] LABORAT[facility] MCV 92.8 82.9 - [facility] 93.1 [facility] LABORATORY MCH 31.0 27.5 - [facility] [place] 32.1 pg [facility] LABORATORY MCHC 33.5 32.0 - [facility] 35.7 g/dL [facility] LABORATORY Platelets 260 145 - 357 [facility] x10(3)/[facility] LABORATORY RDWSD 51.9 (H) 36.0 - [facility] 45.0 [facility] LABORATORY RDWCV 15.5 (H) 11.4 - [facility] 13.8 % [facility] LABORATORY MPV 10.4 7.6 - 12.9 [facility] LABORATORY nRBC % Auto 0.0 % [facility] LABORATORY nRBC Abs Auto 0.000 0.000 - [facility] 0.000 [facility] x10(3)/[facility] LABORATORY Specimen (Source) Anatomical Collection Method Collection Time Re ceived Time Location / / Volume Laterality Blood 06/01/2022 06/01/2022 12:1 0 AM EDT Resulting Agency Comment Spec In Lab Arpita Valle MD HEMATOLOGY ORDERABLES Performing Organization Address City/State/[place] [address] (ABNORMAL) Differential, Automated (05/31/2022 9:17 PM EDT) athologist Signature Neutrophils % 59.6 % [facility] LABORATORY Neutr Abs (ANC) 3.98 1.70 - [facility] [place] 6.10 [facility] x10(3)/[facility] LABORATORY Lymphocytes % 27.5 % [facility] LABORATORY Lymphocytes Abs 1.8 0.9 - 3.2 [facility] x10(3)/[facility] LABORATORY Monocytes % 9.1 % [facility] LABORATORY Monocyte Abs 0.6 0.3 - 0.9 [facility] x10(3)/[facility] LABORATORY Eosinophils % 2.4 % [facility] LABORATORY Eosinophils Abs 0.2 0.0 - 0.4 [facility] x10(3)/[facility] LABORATORY Basophils % 0.7 % [facility] LABORATORY Basophils Abs 0.0 0.0 - 0.1 [facility] x10(3)/[facility] LABORATORY Immature Gran % 0.70 % [facility] LABORATORY Comment: Immature granulocytes(IG's)percentage an d absolute count will include metamyelocytes, myelocytes, and promyelo cytes. Blood smears from CBCs yielding IG's will be scanned manually for concor dance. If this scan disagrees with the automated IG or if promyelocytes are not ed, a manual differential will be performed. Rain Gran Abs 0.05 (H) 0.00 - 0.04 x10(3)/[facility] LABORATORY Specimen Anatomical Collection Method Collection Time Receive d Time (Source) Location / / Volume Laterality Blood 05/31/2022 9:17 PM 9:25 EDT PM EDT Resulting Agency Comment Spec In Lab Arpita Valle MD HEMATOLOGY ORDERABLES Performing Organization Address City/State/[place] [address] (ABNORMAL) Hemogram (05/31/2022 9:17 PM EDT) Analysis Performed At Patho logist Time Signature WBC 6.7 4.0 - 9.5 [facility] x10(3)/[facility] LABORATORY RBC 2.74 (L) 4.58 - [facility] 5.54 [facility] x10(6)/[facility] LABORATORY Hemoglobin 8.5 (L) 13.7 - [facility] g/dL [facility] LAB[facility] Hematocrit 25.7 (L) 40.5 - [facility] 48.5 % [facility] LABORATORY MCV 93.8 (H) 82.9 - [facility] 93.1 [facility] LABORATORY MCH 31.0 27.5 - [facility] 32.1 pg [facility] LABORATORY MCHC 33.1 32.0 - [facility] 35.7 g/dL [facility] LABORATORY Platelets 233 145 - 357 [facility] x10(3)/[facility] LABORATORY RDWSD 51.9 (H) 36.0 - [facility] 45.0 [facility] LABORATORY RDWCV 15.3 (H) 11.4 - [facility] 13.8 % [facility] LAB[facility]ATORY MPV 10.3 7.6 - 12.9 [facility] LABORATORY nRBC % Auto 0.0 % [facility] LABORATORY nRBC Abs Auto 0.000 0.000 - [facility] 0.000 [facility] x10(3)/[facility] LABORATORY Specimen Anatomical Collection Method Collection Time Receive d Time (Source) Location / / Volume Laterality Blood 05/31/2022 9:17 PM 9:25 EDT PM EDT Resulting Agency Comment Spec In Lab Arpita Valle MD HEMATOLOGY ORDERABLES Performing Organization Address City/State/[place] [address] Transfuse RBC (05/31/2022 7:36 PM EDT) Regina Hinds MD NURSING TREATMENT ORDERABLES - BLOOD ADMIN Transfuse RBC (05/31/2022 7:36 PM EDT) Regina Hinds MD NURSING TREATMENT ORDERABLES - BLOOD ADMIN UPPER GI ENDOSCOPY (05/31/2022 3:37 PM EDT) Component Value Ref Test Analysis Performed At [facility] Range Method Time Signature UPPER GI [facility] PROVATION ENDOSCOPY Endoscopy Procedure Date: 05/31/2022 3:37 PM ? Patient Name: Koko Zamora ? Date of : 1940 ? Age: 81 ? Order #: [id number] ? Instrument Name: [id number] ? Procedure: ? Upper GI endoscopy Indications: ? Melena, Suspected upper ? gastrointestinal bleeding Providers: ? Giovani Ponce, Torrey Gannon , ? Vani Wei RN, Juhi Mayerdouglas, ? Torres Ovalle MD: ?Regina Hinds Medicines: ? Propofol per Anesthesia Complications: [...] Procedure Code(s): ? --- Professional --- ? 80618, Esophagogastroduode noscopy, ? flexible, transoral; with control [...] stomach ? and duodenum CPT copyright 2020 [employer]. All rights reserved. The codes documented in this report are preliminary and upon configuration technician review may be revised to meet current compliance requirements. Attending Participation: ? I was present and participated during the entire ? procedure, including non-diaz portions. ? Giovani Ponce, 05/31/2022 4:56:14 PM Number of Addenda: 0 Note Initiated On: 05/31/2022 3:37 PM Specimen (Source) Anatomical Collection Method Collection Time Re ceived Time Location / / Volume Laterality 05/31/2022 3:37 PM EDT Regina Hinds MD GENERAL SURGICAL ORDERABLES Performing Organization [...] who have questions please contact the health care management associate that requested your imaging first. ? Narrative 05/31/2022 2:39 PM EDT EXAMINATION: CT [...] contrast was not administered. COMPARISON: 05/15/2022 from [facility] FINDINGS: GI Tract: Pre-contrast: No bowel dilatation [...] enlarged lymph nodes. Vasculature: Patent common iliac, news agent al iliac, and common femoral arteries bilaterally. [...] the original. EXAMINATION: [facility] CLINICAL HISTORY: Significant Hb drop. [...] contrast was not administered. COMPARISON: 05/15/2022 from [facility] FINDINGS: GI Tract: Pre-contrast: No bowel dilatation [...] enlarged lymph nodes. Vasculature: Patent common iliac, news agent al iliac, and common femoral arteries bilaterally. [...] ho have questions please contact the health care management associate that requested your imaging first. Regina Hinds MD IMG CT ORDERABLES Type and Screen Validity (05/31/2022 1:43 PM EDT) [facility] Method Time Signature T&S only valid [facility] LABORATORY Comment: This Type and Screen result is only valid at the [facility] Hospital Specimen Anatomical Collection Method Collection Time Receive d Time (Source) Location / / Volume Laterality Blood 05/31/2022 1:43 PM 2 1:57 EDT PM EDT Resulting Agency Comment Spec In Lab Regina Hinds MD BLOOD BANK ORDERABLES Performing Organization Address City/State/[place] [address] ABORH Recheck Status (05/31/2022 1:43 PM EDT) [facility] Method Time Signature ABORH Type Completed [facility] LABORATORY Specimen Anatomical Collection Method Collection Time Receive d Time (Source) Location / / Volume Laterality Blood 05/31/2022 1:43 PM 2 1:57 EDT PM EDT Resulting Agency Comment Spec In Lab Regina Hinds MD BLOOD BANK ORDERABLES Performing Organization Address City/[facility]/[place] [address] Antibody screen (05/31/2022 1:43 PM EDT) Patholo gist Method Time Signature Ab Screen Negative [facility] LABORATORY Expires at 06/03/2022 [facility] [id number] on: [facility] LABORATORY Specimen Anatomical Collection Method Collection Time Receive d Time (Source) Location / / Volume Laterality Blood 05/31/2022 1:43 PM 2 1:57 EDT PM EDT Resulting Agency Comment Spec In Lab Regina Hinds MD BLOOD BANK ORDERABLES Performing Organization Address City/[facility]/[place] [address] ABO/Rh Typing (05/31/2022 1:43 PM EDT) P athologist Signature ABORh Type O Pos [facility] LABORATORY Specimen Anatomical Collection Method Collection Time Receive d Time (Source) Location / / Volume Laterality Blood 05/31/2022 1:43 PM 2 1:57 EDT PM EDT Resulting Agency Comment Spec In Lab Regina Hinds MD BLOOD BANK ORDERABLES Performing Organization Address City/[facility]/[place] [address] Prepare RBC (05/31/2022 1:35 PM EDT) P athologist Signature Dispensed? Yes [facility] LABORATORY Specimen Anatomical Collection Method Collection Time Receive d Time (Source) Location / / Volume Laterality Blood 05/31/2022 1:35 PM 2 1:30 EDT PM EDT Regina Hinds MD BLOOD BANK ORDERABLES Performing Organization Address City/[facility]/ZIP Code Phon [place] [address] Prepare RBC (05/31/2022 1:25 PM EDT) athologist Signature Dispensed? Yes [facility] LABORATORY Specimen Anatomical Collection Method Collection Time Receive d Time (Source) Location / / Volume Laterality Blood 05/31/2022 1:25 PM 2 1:23 EDT PM EDT Regina Hinds MD BLOOD BANK ORDERABLES Performing Organization Address City/State/ZIP Code Phon e Number [place] [id number] [facility] LABORATORY Drive (ABNORMAL) Differential, Automated (05/31/2022 12:44 PM EDT) athologist Signature Neutrophils % 62.0 % [facility] LABORATORY Neutr Abs (ANC) 4.71 1.70 - [facility] 6.10 [facility] x10(3)/[facility] LABORATORY Lymphocytes % 24.1 % [facility] LABORATORY Lymphocytes Abs 1.8 0.9 - 3.2 [facility] x10(3)/[facility] LABORATORY Monocytes % 10.8 % [facility] LABORATORY Monocyte Abs 0.8 0.3 - 0.9 [facility] x10(3)/[facility] LABORATORY Eosinophils % 1.6 % [facility] LABORATORY Eosinophils Abs 0.1 0.0 - 0.4 [facility] x10(3)/[facility] LABORATORY Basophils % 0.7 % [facility] LABORATORY Basophils Abs 0.0 0.0 - 0.1 [facility] x10(3)/[facility] LABORATORY Immature Gran % 0.80 % [facility] LABORATORY Comment: Immature granulocytes(IG's)percentage an d absolute count will include metamyelocytes, myelocytes, and promyelo cytes. Blood smears from CBCs yielding IG's will be scanned manually for concor dance. If this scan disagrees with the automated IG or if promyelocytes are not ed, a manual differential will be performed. Rain Gran Abs 0.06 (H) 0.00 - 0.04 x10(3)/[facility] LABORATORY Specimen Anatomical Collection Method Collection Time Receive d Time (Source) Location / / Volume Laterality Blood 05/31/2022 12:44 05/31/2022 PM EDT 12:57 PM EDT Resulting Agency Comment Spec In Lab Brittany Ramirez MD HEMATOLOGY ORDERABLES Performing Organization Address City/State/[place] [address] (ABNORMAL) Hemogram (05/31/2022 12:44 PM EDT) Analysis Performed At Patho logist Time Signature WBC 7.6 4.0 - 9.5 [facility] x10(3)/[facility] LABORATORY RBC 2.11 (L) 4.58 - [facility] x10(6)/[facility] LABORATORY Hemoglobin 6.9 (L) 13.7 - [facility] 16.[facility] g/dL [facility] Hematocrit 20.8 (L) 40.5 - [facility] 48.5 % [facility] MCV 98.6 (H) 82.9 - [facility] 93.1 [facility] LABORATORY MCH 32.7 (H) 27.5 - [facility] 32.1 pg [facility] MCHC 33.2 32.0 - [facility] 35.7 g/dL [facility] Platelets 255 145 - 357 [facility] x10(3)/[facility] LABORATORY RDWSD 47.7 (H) 36.0 - [facility] 45.0 [facility] LABORATORY RDWCV 13.4 11.4 - [facility] 13.8 % [facility] LABORATORY MPV 10.7 7.6 - 12.9 [facility] LABORATORY nRBC % Auto 0.0 % [facility] LABORATORY nRBC Abs Auto 0.000 0.000 - [facility] 0.000 [facility] x10(3)/[facility] LABORATORY Specimen Anatomical Collection Method Collection Time Receive d Time (Source) Location / / Volume Laterality Blood 05/31/2022 12:44 05/31/2022 PM EDT 12:57 PM EDT Resulting Agency Comment Spec In Lab Brittany Ramirez MD HEMATOLOGY ORDERABLES Performing Organization Address City/State/[place] [address] (ABNORMAL) BLOOD GAS 2 VENOUS (05/31/2022 11:24 AM EDT) P athologist Signature pH Marco Antonio 7.38 7.32 - [facility] 7.42 [facility] pCO2 Marco Antonio 40 (L) 41 - 51 General acute hospital LABORATORY pO2 Marco Antonio 18 (L) 25 - 40 General acute hospital LABORATORY HCO3 Marco Antonio 23.3 mmol/L [facility] BE Marco Antonio -1.8 mmol/L [facility] Hgb Blood Gas 7.0 (L) 13.7 - [facility] 16.5 g/dL [facility] O2HB Marco Antonio 24.3 % [facility] COHB Marco Antonio 1.4 % [facility] Comment: Nonsmokers: 0.5-1.5% COHB Smokers: Variable, but usually less than 10% Toxic: 20-30% COHB Lethal: Greater than 60% COHB METHB Marco Antonio 1.7 (H) <=1.5 % [facility] Na Whole Blood 137 135 - 145 mmol/L [facility] K Whole Blood 3.9 3.5 - 5.0 mmol/L [facility] Comment: Please note: Patients with WBC >100,000 may have falsely elevated Potassium levels. Contact the Clinical Chemistry L aboratory if there are any questions. ICa Whole Blood 1.19 1.15 - 1.33 mmol/L [facility] Comment: Note: ??Total bilirubin higher than 20 m g/dL may lead to falsely low ionized calcium. CL Whole Blood 107 98 - 107 mmol/L [facility] Gluc Whole Bld 204 (H) 65 - 199 mg/dL [facility] Comment: Diabetes: >=200 mg/dL plus symp toms Lactate WB 1.4 0.5 - 2.2 mmol/L [facility] BGas Source Venous [facility] Specimen Anatomical Collection Method Collection Time Receive d Time (Source) Location / / Volume Laterality Blood 05/31/2022 11:24 05/31/2022 AM EDT 11:24 AM EDT Regina Hinds MD CHEMISTRY ORDERABLES Performing Organization Address City/[facility]/ZIP Code Phon e Number [address] TSH [place] (05/31/2022 11:20 AM EDT) P athologist Signature TSH 1.67 0.27 - 4.20 [facility] mcIU/mL [facility] Comment: Reference Interval (mcIU/mL): Females: ??First Trimester: 0.23-3.88 ??Second Trimester: 0.22-3.90 ??Third Trimester: 0.44-4.66 Specimen Anatomical Collection Method Collection Time Receive d Time (Source) Location / / Volume Laterality Blood 05/31/2022 11:20 05/31/2022 AM EDT 11:28 AM EDT Resulting Agency Comment Spec In Lab Regina Hinds MD CHEMISTRY ORDERABLES Performing Organization Address City/[facility]/ZIP Code Phon e Number [address] XR Chest PA & Lateral [...] who have questions please contact the health care management associate that requested your imaging first. ? Narrative [...] at 2 thoracic levels. Procedure Note Alan Brink MD - 05/31/2022Fo rmatting of this note [...] ho have questions please contact the health care management associate that requested your imaging first. Regina Hinds MD IMG DX ORDERABLES Lipase (05/31/2022 10:50 AM EDT) P athologist Signature Lipase 41 0 - 60 [facility] unit/L [facility] Specimen Anatomical Collection Method Collection Time Receive d Time (Source) Location / / Volume Laterality Blood Venous Draw / 05/31/2022 10:50 05/31/2022 Unknown AM EDT 11:11 AM EDT Resulting Agency Comment Spec In Lab Zain Champion MD CHEMISTRY ORDERABLES Performing Organization Address City/[facility]/[place] [address] (ABNORMAL) Hepatic Function Panel (05/31/2022 10:50 AM EDT) Analysis Performed At Patho logist Time Signature Total Protein 6.4 6.1 - 8.0 [facility] g/dL [facility] Albumin 4.1 3.2 - 5.2 [facility] g/dL [facility] AST 24 0 - 39 [facility] unit/L [facility] ALT 44 0 - 55 [facility] unit/L [facility] Alk Phos 63 40 - 130 [facility] XIAO unit/L [facility] Total <0.2 (L) 0.2 - 1.3 [facility] Bilirubin mg/dL [facility] Bili, Direct 0.1 0.0 - 0.3 [facility] mg/dL [facility] Specimen Anatomical Collection Method Collection Time Receive d Time (Source) Location / / Volume Laterality Blood Venous Draw / 05/31/2022 10:50 05/31/2022 Unknown AM EDT 11:11 AM EDT Resulting Agency Comment Spec In Lab Zain Champion MD CHEMISTRY ORDERABLES Performing Organization Address City/[facility]/[place] [address] Blue Tube HOLD (05/31/2022 10:50 AM EDT) athologist Signature Blue Hold Sample in [facility] LABORATORY Specimen Anatomical Collection Method Collection Time Receive d Time (Source) Location / / Volume Laterality Blood Venous Draw / 05/31/2022 10:50 05/31/2022 Unknown AM EDT 11:05 AM EDT Brittany Ramirez MD HEMATOLOGY ORDERABLES Performing Organization Address City/State/[place] [address] (ABNORMAL) Differential, Automated (05/31/2022 10:50 AM EDT) athologist Signature Neutrophils % 66.9 % [facility] Neutr Abs (ANC) 5.58 1.70 - [facility] 6.10 [facility] x10(3)/[facility] LABORATORY Lymphocytes % 22.2 % [facility] Lymphocytes Abs 1.8 0.9 - 3.2 [facility] x10(3)/[facility] LABORATORY Monocytes % 7.8 % [facility] Monocyte Abs 0.6 0.3 - 0.9 [facility] x10(3)/[facility] LABORATORY Eosinophils % 1.2 % [facility] Eosinophils Abs 0.1 0.0 - 0.4 [facility] x10(3)/[facility] LABORATORY Basophils % 0.7 % [facility] Basophils Abs 0.1 0.0 - 0.1 [facility] x10(3)/[facility] LABORATORY Immature Gran % 1.20 % [facility] Comment: Immature granulocytes(IG's)percentage an d absolute count will include metamyelocytes, myelocytes, and promyelo cytes. Blood smears from CBCs yielding IG's will be scanned manually for concor dance. If this scan disagrees with the automated IG or if promyelocytes are not ed, a manual differential will be performed. Rain Gran Abs 0.10 (H) 0.00 - 0.04 x10(3)/mcL [facility] Specimen Anatomical Collection Method Collection Time Receive d Time (Source) Location / / Volume Laterality Blood 05/31/2022 10:50 05/31/2022 AM EDT 11:03 AM EDT Resulting Agency Comment Spec In Lab Brittany Ramirez MD HEMATOLOGY ORDERABLES Performing Organization Address City/State/[place] [address] (ABNORMAL) Hemogram (05/31/2022 10:50 AM EDT) Analysis Performed At Patho logist Time Signature WBC 8.3 4.0 - 9.5 [facility] x10(3)/[facility] LABORATORY RBC 2.26 (L) 4.58 - [facility] x10(6)/[facility] LABORATORY Hemoglobin 7.4 (L) 13.7 - [facility] g/dL [facility] Hematocrit 22.3 (L) 40.5 - [facility] 48.5 % [facility] MCV 98.7 (H) 82.9 - [facility] 93.1 [facility] LABORATORY MCH 32.7 (H) 27.5 - [facility] 32.1 pg [facility] MCHC 33.2 32.0 - [facility] 35.[facility] g/dL [facility] Platelets 283 145 - 357 [facility] x10(3)/[facility] LABORATORY RDWSD 47.0 (H) 36.0 - [facility] XIAO 45.0 [facility] LABORATORY RDWCV 13.4 11.4 - [facility] XIAO 13.8 % [facility] MPV 10.8 7.6 - 12.9 [facility] LABORATORY nRBC % Auto 0.0 % [facility] nRBC Abs Auto 0.000 0.000 - [facility] XIAO 0.000 [facility] x10(3)/[facility] LABORATORY Specimen Anatomical Collection Method Collection Time Receive d Time (Source) Location / / Volume Laterality Blood 05/31/2022 10:50 05/31/2022 AM EDT 11:03 AM EDT Resulting Agency Comment Spec In Lab Brittany Ramirez MD HEMATOLOGY ORDERABLES Performing Organization Address City/State/[place] [address] Phosphorus (05/31/2022 10:50 AM EDT) P athologist Signature Phosphorus 3.2 2.5 - 4.5 [facility] mg/dL [facility] Specimen Anatomical Collection Method Collection Time Receive d Time (Source) Location / / Volume Laterality Blood 05/31/2022 10:50 05/31/2022 AM EDT 11:03 AM EDT Resulting Agency Comment Spec In Lab Regina Hinds MD CHEMISTRY ORDERABLES Performing Organization Address City/State/[place] [address] Magnesium (05/31/2022 10:50 AM EDT) P athologist Signature Magnesium 0.93 0.69 - 1.07 [facility] XIAO mmol/L [facility] Specimen Anatomical Collection Method Collection Time Receive d Time (Source) Location / / Volume Laterality Blood 05/31/2022 10:50 05/31/2022 AM EDT 11:03 AM EDT Resulting Agency Comment Spec In Lab Regina Hinds MD CHEMISTRY ORDERABLES Performing Organization Address City/State/[place] [address] (ABNORMAL) pro-Brain Natriuretic Peptide (05/31/2022 10:50 AM EDT) P athologist Signature ProBNP 1,077 (H) <=449 [facility] [place] pg/mL [facility] Specimen Anatomical Collection Method Collection Time Receive d Time (Source) Location / / Volume Laterality Blood 05/31/2022 10:50 05/31/2022 AM EDT 11:03 AM EDT Resulting Agency Comment Spec In Lab Regina Hinds MD CHEMISTRY ORDERABLES Performing Organization Address City/State/[place] [address] Troponin (05/31/2022 10:50 AM EDT) P athologist Signature Troponin-T <0.01 0.00 - 0.00 [facility] ng/mL [facility] Comment: The 99th percentile for Troponin T is le ss than 0.01 ng/mL, any detectable cTnT concentration using this assay should be considered elevated. According to the third universal definit ion of myocardial infarction the following criteria with a clinical prese ntation consistent with acute myocardial ischemia meets the diagnosis for a myocardial infarction ([place]). Detection of a rise and/or fall of [...] additional sample may be indicated. Reference: Third [place] Definition of Myocardial Infarction. Journal of the [place] [employer] 2012;60:1581-98 Specimen Anatomical Collection Method Collection Time Receive d Time (Source) Location / / Volume Laterality Blood 05/31/2022 10:50 05/31/2022 AM EDT 11:03 AM EDT Resulting Agency Comment Spec In Lab Regina Hinds MD CHEMISTRY ORDERABLES Performing Organization Address City/State/[place] [address] (ABNORMAL) Basic Metabolic Panel (non-fasting) (05/31/2022 10:50 AM EDT) athologist Signature Glucose Lvl 223 (H) 65 - 199 [facility] mg/dL [facility] Comment: Diabetes: >=200 mg/dL plus symp toms BUN 39 (H) 10 - 20 mg/dL [facility]OR[facility] Creatinine 0.91 0.80 - 1.50 mg/dL [facility] Sodium 140 135 - 145 mmol/L [facility] Potassium 4.1 3.5 - 5.0 mmol/L [facility] Comment: Please note: ??Patients with WBC >100,00 0 may have falsely elevated Potassium levels. ??For accurate Potassium quantif ication in these patients send serum separator tube (gold top) for subsequent determinations. ??Contact the Clinical Chemistry Laboratory if there are any qu estions. Chloride 107 98 - 107 mmol/L [facility] CO2 23 22 - 31 mmol/L [facility] Anion Gap 10 5 - 15 mmol/L [facility] Calcium 9.1 8.5 - 10.5 mg/dL [facility] Estimated GFR 86 >=60 mL/min/1.73 m?? [facility] Comment: This patient's estimated [...] EDT Resulting Agency Comment Spec In Lab Regina Hinds MD CHEMISTRY ORDERABLES Performing Organization Address City/State/[place] [address] EKG 12 Lead (05/31/2022 10:11 AM EDT) Component Value Ref Range Test Analysis Performed Pathologis t Method Time At Signature Ventricular rate 106 BPM MUSE SYSTEM QRS Duration 122 ms MUSE SYSTEM Q-T Interval 368 ms MUSE SYSTEM QTC Calculated 488 ms MUSE SYSTEM (Bezet) Calculated R [place] -43 degrees MUSE SYSTEM Calculated T [place] 109 degrees MUSE SYSTEM INTERPRETATION Atrial fibrillation with rapid ventricular response MUSE SYSTEM Left axis deviation Minimal voltage criteria for LVH, may be normal variant ( Paolo product ) Cannot rule out Anterior infarct , age undetermined Abnormal ECG When compared with ECG of 20-MAY-2022 19:04, No significant change was found I personally reviewed the tracing and edited the fellows int erpretation Confirmed by fellow MD Mckeon Benjamin ([id number]) on 022 8:36:21 PM Confirmed by MD MARKS JOHN ([id number]) on 06/03/2022 5:04:32 PM Specimen Anatomical Collection Method Collection Time Receive d Time (Source) Location / / Volume Laterality 05/31/2022 10:11 06/03/2022 5:04 AM EDT PM EDT Regina Hinds MD ECG ORDERABLES Performing Organization Address City/State/ZIP Code Phon e Number MUSE SYSTEM documented in this encounter Visit Diagnoses Not on filedocumented in this encounter Admitting Diagnoses Diagnosis GIB (gastrointestinal bleeding) Hemorrhage of gastrointestinal tract, un specified documented in this encounter Administered Medications Inactive Administered Medications - up to 3 most recent administrations Medication Order MAR Action Action Date Dose Rate Site clopidogreL (Plavix) tablet 75 mg Given 06/02/2022 8:12 AM EDT 75 mg 75 mg, Oral, DAILY, First dose on Fri05/31/22 at 2016, Until Discontinued, Routine Given 06/01/2022 8:12 AM EDT 75 mg Given 05/31/2022 9:09 PM EDT 75 mg fluticasone propionate (Flonase) 50 Given 06/02/2022 8:13 AM EDT 1 spray mcg/actuation nasal spray 1 spray 1 spray, Each Nare, DAILY, First dose on Fri05/31/22 at 2015, Until Discontinued, Routine Given 06/01/2022 9:34 AM EDT 1 spray Given 05/31/2022 9:09 PM EDT 1 spray heparin (porcine) (1,000 units/mL) injec tion 0-4,000 Units 0-4,000 Units, Intravenous, BOLUS PER HE ABRAHAM PROTOCOL, Starting on Fri05/31/22 at 2014, Until Fri06/02/22 at 1702, Per Pro tocol, START ADJUSTMENT SCHEDULE 6 HOURS AFTER STARTING INFUSION Bolus doses are rounded to t he nearest 100 units. If Heparin UFH Level is: - Less than 0.1 international un it/mL: Bolus 60 units/kg (Maximum of 4,000 units) = Bolus 4,000 u nits - 0.1 - 0.19 International unit/mL: Bolus 30 units/kg (Maximum of 2,000 units) = Bolus 2,0 00 units - Equal to or greater than 0.2 international unit/mL: No Bolus, Rout ine heparin (porcine) 50 units/mL New Bag 06/02/2022 7:10 AM EDT 4 00 Units/hr 8 mL/hr in sodium chloride 0.45% 500 mL infusion 0-5,000 Units/hr (0-100 mL/hr), Intravenous, CONTINUOUS, Starting on Fri05/31/22 at 2016, Until Fri06/02/22 at 1702, Begin infusion at 950 units per hr (12 units/kg/hr). Maximum initial infusion rate is 1,000 units/hr. Infusion doses are rounded to the nearest 50 units. Target Heparin UFH Level (anti-Xa activity) = 0.3 - 0.7 international unit/mL Start adjustment schedule 6 hours after starting infusion. If Heparin UFH Level is: - Less than 0.1 international unit/mL: Administer PRN bolus and increase rate by 300 units per hr (4 units/kg/hr) - 0.1 - 0.19 international unit/mL: Administer PRN bolus and increase rate by 150 units per hr (2 units/kg/hr) - 0.2 - 0.29 international unit/mL: NO BOLUS and increase rate by 150 units per hr (2 units/kg/hr) - 0.3 - 0.7 international unit/mL: No change - 0.71 - 0.79 international unit/mL: NO BOLUS and decrease rate by 100 units per hr (1 units/kg/hr) - 0.8 - 0.99 international unit/mL: NO BOLUS and decrease rate by 150 units per hr (2 units/kg/hr) - Greater than or equal to 1.00 international unit/mL: Hold infusion for 60 minutes then decrease rate by 250 units per hour (3 units/kg/hr) Repeat Heparin UFH Level 6 hours after initiating heparin. Then 6 hours after each dose adjustment. When 2 consecutive Heparin UFH Level within target range of 0.3 - 0.7 international unit/mL, change Heparin UFH Level to once every 24 hours with A.M. labs while on heparin. RN to order required Heparin UFH Level - Per Protocol, Routine Rate/Dose Verify 06/02/2022 6:59 AM EDT 400 Units/hr 8 mL/hr Rate/Dose Change 06/02/2022 12:51 AM EDT 400 Units/hr 8 mL/hr lidocaine (Lidoderm) Patch Applied 06/02/2022 4:17 AM 2 patches 20-Other (document 5% patch 2 patch EDT in comment 2 patch, Transdermal, sec tion) EVERY 24 HOURS, First dose on 06/02/22 at 0430, Until Discontinued, Apply patch(es) to left lower extremity for 12 hours, and then remove for 12 hours. Can cut to fit on anterior martell and posterior calf., Routine lidocaine (Lidoderm) topical patch REMOV AL Transdermal, EVERY 24 HOURS, First dose on 06/02/22 at 1630, Until Discontinued, Remove lidocaine 5% patch metoproloL tartrate (Lopressor) tablet 12.5 Given 05/11 12:23 PM EDT 12.5 mg mg 12.5 mg, Oral, EVERY 6 HOURS SCHEDULED, First dose on 06/01/22 at 0000, Until Discontinued, Please hold for systolic <90 or HR <60, Routine Given 06/02/2022 12:35 AM EDT 12.5 mg Given 06/01/2022 5:28 PM EDT 12.5 mg pantoprazole EC (Protonix) tablet 40 mg Given 06/02/2022 8:11 AM EDT 40 mg 40 mg, Oral, DAILY, First dose on 06/01/22 at 1645, Until Discontinued, DO NOT CRUSH OR OPEN, Routine rivaroxaban (Xarelto) tablet 20 mg Given 06/02/2022 11:48 AM EDT 20 mg 20 mg, Oral, DAILY, First dose on 06/02/22 at 1115, Until Discontinued, Routine rosuvastatin (Crestor) tablet 40 mg Given 06/02/2022 8:11 AM EDT 40 mg 40 mg, Oral, DAILY, First dose on Fri05/31/22 at 2016, Until Discontinued, Routine Given 06/01/2022 8:12 AM EDT 40 mg Given 05/31/2022 9:09 PM EDT 40 mg sodium chloride 0.9 % (flush) (BD PosiFlush Given 06/02/2022 8:1 4 AM EDT 5 mLs Normal Saline 0.9) flush 5 mL 5 mL, Intravenous, 2 TIMES DAILY, First dose on Fri05/31/22 at 2100, Until Discontinued, Routine Given 06/01/2022 8:43 PM EDT 5 mLs Given 06/01/2022 8:13 AM EDT 5 mLs tamsulosin (Flomax) capsule 0.4 mg Given 06/02/2022 8:12 AM EDT 0.4 mg 0.4 mg, Oral, DAILY, First dose on Fri06/01/22 at 1400, Until Discontinued, DO NOT CRUSH OR OPEN, Routine Given 06/01/2022 2:18 PM EDT 0.4 mg documented in this encounter Active and Recently Administered Medications Times are shown in EDT. Scheduled Medication Order 05/31/2022 06/01/2022 06/02/2022 clopidogreL (Plavix) tablet 75 mg 2108 (Given - Provider: Esthela Barbour RN) 811 (Given - Provider: Trinidad Saenz RN) 08 (Given - Provider: Trinidad Saenz RN) 75 mg, Oral, DAILY, First dose on Fri at 2016, Until Discontinued, Routine fluticasone propionate (Flonase) 50 mcg/actuation nasa l spray 1 spray 2108 (Given - Provider: Raven Barbour RN) 09 (Given - Provider: Trinidad Saenz RN) 08 (Given - Provider: Tirnidad Saenz RN) 1 spray, Each Nare, DAILY, First dose on Fri05/31/22 at 2016, Until Discontinued, Routine lidocaine (Lidoderm) 5% patch 2 patch(Linked Group 1) 2690 (Patch Applied - Provider: Raven Barbour RN - Comment: Left lower leg (ant and post)) 2 patch, Transdermal, EVERY 24 HOURS, Fi rst dose on Fri06/02/22 at 0430, Until Discontinued, Apply patch(es) to left lower extremity for 12 hours, and then remove for 12 hours. Can cut to fit on anterior martell and posterior calf., Routine lidocaine (Lidoderm) topical patch REMOVAL(Linked Group 1) Transdermal, EVERY 24 HOURS, First dose on 06/02/22 at 1630, Until Discontinued, Remove lidocaine 5% patch metoproloL tartrate (Lopressor) tablet 12.5 mg 0004 (Given - Provider: Raven Barbour RN)0557 (Not Given - Provider: Raven Barbour RN - Reason: Contraindicated - Comment: per verbal MD order Kirstin Yu, do not give)1150 (Given - Provider: Trinidad Saenz RN) 0035 (Given - Provider: Raven Barbour RN )0600 (Not Given - Provider: Raven Barbour RN - Reason: Order parameters not met)1223 (Given - Provider: Maranda Ribeiro RN) 12.5 mg, Oral, EVERY 6 HOURS SCHEDULED, First dose on 06/01/22 at 0000, Until Discontinued, Please hold for systolic <90 or HR <60, Routine 1728 (Given - Provider: Trinidad Saenz RN) pantoprazole (Protonix) injection 40 mg (CANCELED) 160 5 (MAR Hold - Provider: Admin Adt - Reason: Transfer to a Procedural area)1747 (MAR Unhold - Provider: Admin Adt)1752 (Given - Provider: Angella Floyd RN)2109 (Given - Provider: Raven Barbour RN) 0812 (Given - Provider: Trinidad Saenz RN) 40 mg, Intravenous, 2 TIMES DAILY, First dose on Fri05/31/22 at 1436, Until Discontinued pantoprazole EC (Protonix) tablet 40 mg 1645 (Not Given - Provider: Trinidad Saenz RN - Reason: Contraindicated - Comment: received AM dose this morning IVP) 0811 (Given - Provider: Trinidad Saenz RN) 40 mg, Oral, DAILY, First dose on Sat at 1645, Until Discontinued, DO NOT CRUSH OR OPEN, Routine rivaroxaban (Xarelto) tablet 20 mg 1148 (Given - Provider: Maranda Ribeiro RN) 20 mg, Oral, DAILY, First dose on Sun at 1115, Until Discontinued, Routine rosuvastatin (Crestor) tablet 40 mg 210 (Given - Provider: Raven Barbour RN) 0812 (Given - Provider: Trinidad Saenz RN) 0811 (Given - Provider: Trinidad Saenz RN) 40 mg, Oral, DAILY, First dose on Fri at 2016, Until Discontinued, Routine sodium chloride 0.9 % (flush) (BD PosiFlush Normal Ubaldo ine 0.9) flush 5 mL 2118 (Given - Provider: Raven Barbour RN) 08 (Given - Provider: Trinidad Saenz RN)2042 (Given - Provider: Raven Barbour RN) 0814 (Given - Provider: Trinidad Saenz RN) 5 mL, Intravenous, 2 TIMES DAILY, First dose on Fri05/31/22 at 2100, Until Discontinued, Routine tamsulosin (Flomax) capsule 0.4 mg 1418 (Given - Provider: Trinidad Saenz RN) 0812 (Given - Provider: Trinidad Saenz RN) 0.4 mg, Oral, DAILY, First dose on Fri at 1400, Until Discontinued, DO NOT CRUSH OR OPEN, Routine Continuous Medication Order 05/31/2022 06/01/2022 06/02/2022 heparin (porcine) 50 units/mL in sodium chloride 0.45% 500 mL infusion(Linked Group 2) 2230 (New Bag - Provider: Raven Barbour RN) 0457 (Rate /Dose Verify - Provider: Raven Barbour RN)1152 (Paused - Provider: Trinidad Saenz RN - Comment: UFH 1.05)1255 (Restarted - Provider: Trinidad Saenz RN)1951 (Rate/Dose Change - Provider: Raven Barbour RN) 0051 (Rate/Dose Change - Provider: Raven Barbour RN)0659 (Rate/Dose Verify - Provider: Raven Barbour RN)0710 (New Bag - Provider: Raven Barbour RN)1148 (Stopped - Provider: Maranda Ribeiro RN) 0-5,000 Units/hr (0-100 mL/hr), Intraven ous, CONTINUOUS, Starting on Fri05/31/22 at 2016, Until Fri06/02/22 at 1702, Begin infusion at 950 units per hr (12 units/kg/hr). Maximum initial infusion rate is 1,000 units/hr. Infusion doses are roun ded to the nearest 50 units. Target Heparin UFH Level (anti-Xa activity) = 0.3 - 0.7 international unit/mL Start adjustment schedule 6 hours after starting infusi on. If Heparin UFH Level is: - Less than 0.1 international unit/mL: Administer PRN bolus and increase rate by 300 units per hr (4 units/kg/hr) - 0.1 - 0.19 international unit/mL: Administer PRN bolus an d increase rate by 150 units per hr (2 u nits/kg/hr) - 0.2 - 0.29 international unit/mL: NO BOLUS and increase rate by 150 units per hr (2 units/kg/hr) - 0.3 - 0.7 international unit/mL: No change - 0.71 - 0.79 international unit/mL: NO BOLUS and decrease rate by 100 units per hr (1 units/kg/hr) - 0.8 - 0.99 international unit/mL: NO BOLUS and decrease rate by 150 units per hr (2 units/kg/hr) - Greater than or equal to 1.00 international uni t/mL: Hold infusion for 60 minutes then decrease rate by 250 units per hour (3 units/kg/hr) Repeat Heparin UFH Level 6 hours after initiating heparin. Then 6 hour s after each dose adjustment. When 2 con secutive Heparin UFH Level within target range of 0.3 - 0.7 international unit/mL, change Heparin UFH Level to once every 24 hours with A.M. labs while on heparin . RN to order required Heparin UFH Level - Per Protocol, Routine PRN Medication Order 05/31/2022 06/01/2022 06/02/2022 acetaminophen (Tylenol) tablet 650 mg 650 mg, Oral, EVERY 6 HOURS PRN, Startin g on Fri05/31/22 at 2014, Until Fri06/02/22 at 1702, Pain, Maximum dose of acetaminophen is 4000 mg from all sources in 24 hours. When ordered for pain, acetamino phen should be given even when other ord ered pain medications are indicated. , Routine carboxymethylcellulose (Refresh Plus) 0.5 % ophthalmic drops 1 d rop 1 drop, Both Eyes, 3 TIMES DAILY PRN, St arting on Fri05/31/22 at 2013, Until Fri06/02/22 at 1702, Dry Eyes, Routine heparin (porcine) (1,000 units/mL) injection 0-4,000 Units(Linke d Group 2) 0-4,000 Units, Intravenous, BOLUS PER TRE ROSARIO PROTOCOL, Starting on Fri05/31/22 at 2013, Until Fri06/02/22 at 1702, Per Protocol, START ADJUSTMENT SCHEDULE 6 HOURS AFTER STARTING INFUSION Bolus dose s are rounded to the nearest 100 units. If Heparin UFH Level is: - Less than 0.1 international unit/mL: Bolus 60 units/kg (Maximum of 4,000 units) = Bolus 4,000 units - 0.1 - 0.19 International unit/mL: Bolus 30 units/kg (Maximum of 2,000 uni ts) = Bolus 2,000 units - Equal to or greater than 0.2 international unit/mL: No Bolus, Routine iohexoL (Omnipaque) (350 mg/mL) solution 0-200 mL (COM PLETED) 1429 (Given - Provider: Desiree Price) 0-200 mL, Intravenous, ONCE PRN, 1 dose, Starting on Fri05/31/22 at 1428, Until Fri05/31/22 at 1429, Per Protocol, Warning Vesicant/Irritant Medication , Radiology Contrast, Routine lidocaine (Xylocaine) 1% (10 mg/mL) injection 3 mg 3 mg (0.3 mL), Subcutaneous, ONCE PRN, 1 dose, Starting on Fri05/31/22 at 2013, Until Fri06/02/22 at 1702, for discomfort with PIV insertion, Routine sodium chloride 0.9 % (flush) (BD PosiFlush Normal Saline 0.9) f lush 5-20 mL 5-20 mL, Intravenous, EVERY 1 MIN PRN, S tarting on Fri05/31/22 at 2013, Until Fri06/02/22 at 1702, flush, Flush pertains to all indwelling lines. Flush per protocol found in the job aid using the link provided on this medication record., Routine Linked Groups Order Group 1: lidocaine (Lidoderm) 5% patch 2 patchJump to med 2 patch, Transdermal, EVERY 24 HOURS, Fi rst dose on Fri06/02/22 at 0430, Until Discontinued
Apply patch(es) to left lower extremity for 12 hours, and then remove for 12 hours. Can cut to fit on anterior martell and posterior calf.
Routine And lidocaine (Lidoderm) topical patch REMOVALJump to med Transdermal, EVERY 24 HOURS, First dose on 06/02/22 at 1630, Until Discontinued
Remove lidocaine 5% patch
Group 2: heparin (porcine) 50 units/mL in sodium chloride 0.45% 500 mL infusionJump to med 0-5,000 Units/hr (0-100 mL/hr), Intraven ous, CONTINUOUS, Starting on Fri05/31/22 at 2016, Until Fri06/02/22 at 1702
Begin infusion at 950 units per hr (12 units/kg/hr). Maximum initial infusion rate is 1,000 units/hr. Infusion d oses are rounded to the nearest 50 units. Target Heparin UFH Level (anti-Xa activity) = 0.3 - 0.7 international unit/mL &nbsp ;Start adjustment schedule 6 hours after starting infusion. If Heparin UFH Level is: - Less than 0.1 international unit/mL: Ad library historian PRN bolus and increase rate by 300 units per hr (4 units/kg/hr) - 0.1 - 0.19 international unit/mL: Administer PRN bolus and increase rate by 150 units per hr (2 units/kg/hr) -&nbs p; 0.2 - 0.29 international unit/mL: NO BOLUS and increase rate by 150 units per hr (2 units/kg/hr) - &n bsp;0.3 - 0.7 international unit/mL:&nbs p; No change - 0.71 - 0.79 international unit/mL: NO BOLUS and decrease rate by 100 units per hr (1 un its/kg/hr) - 0.8 - 0.99 international unit/mL: NO BOLUS and decrease rate by 150 units per hr (2 units/kg/hr) - Greater than or equal to 1.00 international unit/mL:&nb sp; Hold infusion for 60 minutes then decrease rate by 250 units per hour (3 units/kg/hr) Repeat Heparin UFH Level 6 hours after i nitiating heparin. Then 6 hours after ea ch dose adjustment. When 2 consecutive Heparin UFH Level within target range of 0.3 - 0.7 international unit/mL, change Heparin UFH Level to once every 24 hours w ith A.M. labs while on heparin. & nbsp;RN to order required Heparin UFH Level - Per Protocol
Routine And heparin (porcine) (1,000 units/mL) injection 0-4,000 UnitsJump to med 0-4,000 Units, Intravenous, [facility], Starting on Fri05/31/22 at 2014, Until Fri06/02/22 at 1702, Per Protocol
START ADJUSTMENT SCHEDULE 6 HOURS AFTER STARTING INFUSION&am p;nbsp;Bolus doses are rounded to the ne arest 100 units. If Heparin UFH Level is: - Less than 0.1 international unit/mL: Bolus 60 units/kg (Maximum of 4,000 units) = Bolus 4,000 units - 0. 1 - 0.19 International unit/mL: Bolus 30 units/kg (Maximum of 2,000 units) = Bolus 2,000 units -&nb sp; Equal to or greater than 0.2 in ternational unit/mL: No Bolus
Routine documented in this encounter Care Teams Scrap Crusher Relationship Specialty Start Date End Date Bobby Das MD PCP - General 10/02/[address] [place] [address] [place] [id number] documented as of this encounter
--- OUTSIDE RECORDS SUMMARY | 2022-06-23 00:17 | XMS_ITS | Encounter Summary ---
:1940 Author Organization [facility] [place] [address] Care Team Providers Name Role Phone Bobby Das MD Primary Care Provider Encounter Details Date Type Department Care Team Description 05/24/2022 Telephone Cardiology at [facility] [place] [place] Kourtney Jimenez, RN [facility] [place] [phone] Social History Tobacco Use Types Packs/Day Years Used Date Current Some Day Smoker Cigarettes 0.5 50 Smokeless Tobacco: Never Used Alcohol Use Standard Drinks/Week Comments Yes 44 (1 standard drink = 0.6 oz pure alcoh ol) Sex Assigned at Date Recorded Not on file documented as of this encounter Miscellaneous Notes Telephone Encounter - Kourtney Jimenez RN - 05/24/2022 12:37 PM EDT Telephone call from spouse Ursula,states Mr Zamora recently underwent complex vascular surgery as well as cardiac stenting. Vascular surgery discharge 05/21/22,states Mr Zamora has been sleeping 95% of his day since coming home. Advised she should follow up with Vascular Surgery -contact # given. She agrees to contact their office today. documented in this encounter Plan of Treatment Upcoming Encounters Date Type Specialty Care Team Description 07/02/2022 Office Visit Vascular Surgery Jing Ghosh, LAP L[employer]ER [facility] [place] [address] (Wo rk) 09/02/2022 Clinical Support Dermatology Thai Lynn MD [facility] ER DR JENNY [facility]ILL[facility] [place], [place] [address] (Wo rk) 09/02/2022 Procedure visit Dermatology Jace Lynn MD [facility] DR JENNY [place]ILL[place], [place] [address] (Wo rk) 09/05/2022 Appointment Cardiology Trinity Reid MD [facility] CARDIOLOGY [place], [place] [address] (Wo rk) 09/05/2022 Office Visit Cardiology Trinity Reid MD [facility] CARDIOLOGY [place], [place] [address] (Wo rk) documented as of this encounter Visit Diagnoses Not on filedocumented in this encounter Care Teams Medical Or Surgical Instrument Maker Relationship Specialty Start Date End Date Bobby Das MD PCP - General 10/02/[address] [place] [address] [place] [phone] documented as of this encounter
--- OUTSIDE RECORDS SUMMARY | 2022-06-23 00:17 | XMS_ITS | Encounter Summary ---
:1940 [place] [address] Care Team Providers Name Role Phone Bobby Das MD Primary Care Provider Reason for Visit Reason Comments Dizziness Auth/Cert Specialty Diagnoses / Procedures Referred By Contact Refer red To Contact Diagnoses GIB (gastrointestinal bleeding) Abe [facility] [place] [address] Referral ID Status Reason Start Date Expiration Date Visits Requ ested Visits Authorized [id number] 1 1 Encounter Details Date Type Department Care Team Description 05/31/2022 - Hospital Encounter Intermediate Special Dixon Hinds MD [facility] [place] [address] GIB 06/02/2022 Care [place] [address] (gastrointestinal [facility] [place] [address] bleeding) ([facility] [place] [address] Dx) [place] [address] Social History Tobacco Use Types Packs/Day Years Used Date Former Smoker Cigarettes 0.5 50 Smokeless Tobacco: Never Used Alcohol Use Standard Drinks/Week Comments Yes 42 (1 standard drink = 0.6 oz pure alcoh ol) Sex Assigned at Date Recorded Not on file documented as of this encounter Last Filed Vital Signs Vital Sign Reading Time Taken Comments Blood Pressure 96/59 06/02/2022 12:19 PM EDT Pulse 139 06/02/2022 12:19 with standing, PM EDT notified Arpita galarza MD Temperature 37.1 ??C (98.8 ??F) 06/02/2022 7:14 AM EDT Respiratory Rate 25 06/02/2022 12:19 PM EDT Oxygen Saturation 99% 06/02/2022 12:19 PM EDT Inhaled Oxygen - - Concentration Weight 77.1 kg (170 lb) 05/31/2022 10:18 AM EDT Height 172.7 cm (5' 8) 05/31/2022 10:18 AM EDT Body Mass Index 25.85 05/31/2022 10:18 AM EDT documented in this encounter Discharge Summaries Arpita Valle MD - 06/02/2022 12:48 PM EDT [facility] Medicine - Discharge Summary Patient Name: [...] switching to a different bloodthinner with the gift shop clerk outpatient. Call your doctor or seek medical [...] switchingto a different blood thinner with your gift shop clerk as an outpatient Stopped Medications - Aspirin - Valsartan - Speak with your gift shop clerk about the timing of restarting this Follow-up Appointments Future Appointments Date Time Provider Department Center 06/10/2022 11:00 AM Loretta Cohen MD [facility] 06/13/2022 7:30 AM Edson Lagos [place] [facility] VAS LAB [facility] 06/13/2022 8:00 AM Fito Summers MD [facility] V SURG [facility] 06/13/2022 10:00 AM Alan Reid MD [address] Your Inpatient Medical Team at [facility] Name(s) of your inpatient provider(s): Dr. John Ames For questions regarding issues relating to your hospitalization on the Hospital Medicine Service, please contact your inpatient physician through the [facility] Dining Room Server [phone]. Issues after hours and on weekends will be handled by the Hospitalist staff on-call. Your Primary Care Provider Bobby Das MD [phone] Future Appointments and Orders Future Appointments and Orders Future Appointments Provider Department Dept Phone 06/10/2022 11:00 AM Loretta Cohen MD [facility] Arrive at: [facility] [address] [place] [phone] 06/13/2022 7:30 AM Edson Lagos [place] V[facility] Lab at [facility] Arrive at: [facility] [phone] 06/13/2022 8:00 AM Fito Summers MD Vascular Surgery at [facility] Arrive at: [facility] 06/13/2022 10:00 AM Alan Reid MD Cardiology at [facility] Arrive at: [facility] [phone] For questions regarding this document or issues relating to this hospitalization on the Medical Service, please contact your inpatient physician through the [facility] Dining Room Server . Issues after hours and on weekends [...] switching to a different bloodthinner with the gift shop clerk outpatient. Call your doctor or seek medical [...] switchingto a different blood thinner with your gift shop clerk as an outpatient Stopped Medications - Aspirin - Valsartan - Speak with your gift shop clerk about the timing of restarting this Follow-up Appointments Future Appointments Date Time Provider Department Center 06/10/2022 11:00 AM Loretta Cohen MD [facility] 06/13/2022 7:30 AM Edson [place]os [place] [facility] VAS LAB ILDA POWELL 06/13/2022 8:00 AM Fito Summers MD [facility] V SURG [facility] 06/13/2022 10:00 AM Alan Reid MD [facility] CARD 4A [facility] Your Inpatient Medical Team at [facility] Name(s) of your inpatient provider(s): Dr. John Ames For questions regarding issues relating to your hospitalization on the Hospital Medicine Service, please contact your inpatient physician through the [facility] Dining Room Server [phone]. Issues after hours and on weekends will be handled by the Hospitalist staff on-call. Your Primary Care Provider Bobby Das MD [phone] documented in this encounter Medications at Time [...] 04/12/20 21 (FLONASE) 50 mcg/actuation Nare route Erie, Suspension daily as needed. fluorouraciL (EFUDEX) 5 [...] spent >30 minutes (Day of Discharge Code 58918) involved in the final examination of the [...] from the original note were not included. Hospital Medicine Progress Note [place] Team - Pager #[phone] Admit Date: 05/31/2022 Name: Koko Zamora : [...] CBC: Recent Labs 06/01/22 0556 06/01/22 0000 05/31/22 [...] cardiology to discuss antiplatelet (ISO bleed and half-way), following. ?? #CAD s/p stenting recently #HFrEF [...] Kurt Ames MD Internal Medicine, PGY-1 Medicine [place] Team #[id number] Associated attestation - John Jolley MD - 06/01/2022 5:02 PM EDT [facility] Medicine -- Attending Progress Note Please [...] of two midnights or is on the [facility] inpatient only procedure list (status C) due to: GI Bleeding documented in this encounter H&P Notes Mahendra Victor MD - 05/31/2022 4:33 PM EDT Images from the original note were not included. [facility] Medicine (#[id number]) History and Physical Patient info: Name: Koko Zamora : 1940 PCP: Bobby Das MD PCP phone number: [phone] Date of Admission: 05/31/2022 ( Hospital Day [...] IR Biopsy Spine 07/20/2019 Bobby Marshall MD [facility] INTERVENTIONL RAD ??? IR VERTEBROPLASTY LUMBAR MULTIPLE LEVELS 07/20/2019 IR Vertebroplasty Lumbar Multiple Levels 07/20/2019 Bobby Marshall MD [facility] INTERVENTIONL RAD ??? IR VERTEBROPLASTY THORACIC SINGLE LEVEL 10/25/2020 IR Vertebroplasty Thoracic Single Level 10/25/2020 Matt Chisholm MD [facility] INTERVENTIONL RAD ??? PRO EMBLC/THRMBC FEMORAL POPLITEAL AORTO-ILIAC ARTERY Left 05/15/2022 EMBOLECTOMY OR THROMBECTOMY, FEMOROPOPLITEAL, AORTOILIAC ARTERY BY LEG INCISION (WRVU 19.48) performed by Fito Summers MD at [facility] MAIN OR No family history on file. [...] 11 ??? fluticasone propionate (FLONASE) 50 mcg/actuation Erie, Suspension as needed. ??? fluorouraciL (EFUDEX) 5 [...] Gas) No results found for: PHART, PO2ART, FAV3AFX, DOY2DEQ Microbiology: N/A Pertinent radiology/diagnostic studies: Recent prior [...] Lines/Access: PIV x2 CODE Status: Full Arpita Patricia Valle MD, PGY-3 05/31/2022 [facility] Medicine # [id number] Attending Staff Admission Documentation I have examined [...] 06/01/2022 documented in this encounter ED Notes Karlos Still RN - 05/31/2022 3:58 PM EDT [facility]pine[facility] pulled [facility] for soft BPs. Upon arrival to pt's [...] 05/31/2022 10:50 AM EDT Pt brought to by [facility] Brittany Ramirez MD - 05/31/2022 10:40 AM [...] LEFT inguinal region secondary to procedure. No barertt hematoma. Thank you for letting us participate in the care of this patient. If you are a health care provider and have any questions regarding this report, please contact the number below. For patients who have questions please contact the health patient care representative that requested your imaging first. Chest PA [...] who have questions please contact the health patient care representative that requested your imaging first. Course as of 05/31/22 1550 FriMay 31, 2022 1135 Hemoglobin(!): 7.4 From 11.8 [...] of the LLE with admission complicated by LHC s/p DESx1 and transient episode of new [...] given hemodynamic instability and significant anemia, with Graham consultation. The visit findings, diagnosis, and care plan were discussed with the patient, and his agree with the plan. Patient signed out to oncoming ED team awaiting final recommendations from Brittany Tavares MD Resident 05/31/22 1605 Associated attestation - Regina Hinds MD - [...] soft blood pressures, MD made aware. 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 Patient reported blurry/hazy [...] Heparin gtt - plan to bridge to eliquis Discharge planning Increase strength & mobility INDIVIDUALIZED [...] CPG GOAL OUTCOME EVALUATION: Consult Note - Rosys Anaya MD - 06/01/2022 7:25 PM EDT Images from the original note were not included. Formerly [facility] [place] [address] INPATIENT CARDIOLOGY CONSULT NOTE Date of Consultation: 06/01/2022 Admit Date: 05/31/2022 Place of Service: IS86/IS86-A Referring Attending: REGINA HINDS COLEMAN W FRIEDMAN, HARLEY P Responsible Thinner Sprayer: Dr. Rizo Hospital Day 1 day Reason for Consult: Antiplatelet/anticoagulation s/p pci and afib, with GI bleed HPI: Koko Zamora is a 81 y.o. male with a cardiac history significant for remote mitral valve repair (2000), pre-DM, HLD, significant alcohol use, tobacco use, Afib on xarelto, ischemic systolic heartfailure (recent [facility] 05/20/2022 with 2V disease OM1 and distal RCA, had ostial LCX and LCx stent) who presented to [facility] on 05/31/2022 for GI [...] bpm (!) 105 -- 113/69 -- -- 07/23/22 1919 36.9 ??C (98.4 ??F) 99 bpm [...] IR Biopsy Spine 07/20/2019 Bobby Marshall MD [facility] INTERVENTIONL RAD ??? IR VERTEBROPLASTY LUMBAR MULTIPLE LEVELS 07/20/2019 IR Vertebroplasty Lumbar Multiple Levels 07/20/2019 Bobby Marshall MD [facility] INTERVENTIONL RAD ??? IR VERTEBROPLASTY THORACIC SINGLE LEVEL 10/25/2020 IR Vertebroplasty Thoracic Single Level 10/25/2020 Matt Chisholm MD [facility] INTERVENTIONL RAD ??? PRO EMBLC/THRMBC FEMORAL POPLITEAL AORTO-ILIAC ARTERY Left 05/15/2022 EMBOLECTOMY OR THROMBECTOMY, FEMOROPOPLITEAL, AORTOILIAC ARTERY BY LEG INCISION (WRVU 19.48) performed by Fito Summers MD at [facility] MAIN OR ALLERGIES: Allergies Allergen Reactions ??? [...] time ??? fluticasone propionate (FLONASE) 50 mcg/actuation Erie, Suspension 1 spray by Each Nare route [...] Intake/Output Summary (Last 24 hours) at 06/01/2022 192 Last data filed at 06/01/2022 1614 Gross per 24 hour Intake 811 ml Output 1300 ml Net -489 ml Wt & BMI By Encounter Date Flowsheet Row ED to Hosp-Admission (Current) from 05/31/2022 in Intermediate Special Care Unit [facility] ED to Hosp-Admission (Discharged) from 05/15/2022 in Intermediate Cardiac Care Unit [facility] Weight 77.1 kg (170 lb) 1 [...] Neurology: Without focal deficit ECG: Echocardiogram: 05/16/2022 [facility] 05/20/2022 Coronary Angiography: Dominance: Right Left Main [...] 3.5 guiding catheter and a 3.5 Fr [facility] [place] [facility] [place] [facility] 20 Mhz. Imaging was successful. Image [...] atmospheres. A premounted 2.75 x 30 mm Rudy [place] (AMPARO) was deployed with a maximum inflation [...] may require modification of this regimen. Consult [facility] Interventional Cardiology for questions. [...] Hb drop. Unknown source. has had a [facility] with stent placed and revascularization of left lower extremity within the past two weeks, recently on anticoagulation Unknown source of bleeding TECHNIQUE: Helical CT of the abdomen and pelvis was performed before and after the intravenous administration contrast utilizing GI bleed protocol. Administered 125.0 ml of OMNIPAQUE 350.00 mg/ml. Oral contrast was not administered. COMPARISON: 05/15/2022 from [facility] FINDINGS: GI Tract: Pre-contrast: No bowel [...] who have questions please contact the health patient care representative that requested your imaging first. [place] 48 [...] LATERAL (GENERIC) CLINICAL HISTORY: CHAMBERS, Fatigue. HFrEF, recent LHC with stent placed. [...] who have questions please contact the health patient care representative that requested your imaging first. Recent Labs [...] on xarelto, ischemic systolic heart failure (recent [facility] 05/20/2022 with 2V disease OM1 and distal RCA, had ostial LCX and LCx stent), recent admission for acutelimb ischemia LL, where he had left common femoral transverse arteriotomy and primary repair, thromboembolectomy of the SFA, profunda and common femoral artery with 4 compartment fasciotomies, who presented to [facility] on 05/31/2022 for GI [...] attestation for additional insight. Rossy Anaya MD [facility] Director Of People, PGY-5 Inpatient Cardiology Consults Pager #[phone] Please check Qgenda for on-call cardiology consults [...] A&Ox 4. On room air. VSS. LBM: WEED SPRAYER. Adequate urine output, urinal at bedside, flomax restarted. UFH elevated at 1130, see MAR. Recheck UFH needed at 1855. PLAN MOVING FORWARD: Anticoagulant-- on heparin gtt, will bridge to eliquis per cardio Q4 vitals Q4 I&Os Pain [...] surrogate would be surrogate decision maker per [place] surrogate decision making law. (Only good for 180 days) Any patient receiving care in [place] must abide by [place] law. The hierarchy for surrogate decision making [...] (i) The agent with financial power of attorney law clerk or a conservator appointed in accordance with [...] walker - rolling Home Address confirmed as: [address] [place] [phone] Social & Family Supports: All names listed below confirmed with patient as current and correct Extended Emergency Contact Information Primary Emergency Contact: Ursula Zamora Address: [address] [place] [id number] [facility] Relation: Spouse Current Care Provided by: self [...] Type: *No Product type* / Secondary Insurance: [facility] Secondary Insurance? (Only Medicare A&B): Yes ; Prescription Coverage: Yes Preferred Pharmacy: [id number] - [address] [place] [phone] [place] Status: Patient is a : No Primary Care Provider: Bobby Das MD [phone] Patient/Caregiver Goals of Treatment: Patient plans to [...] with transition of care planning. [facility]SH [place] [facility] Medicine/ Medical Specialties Pager- [phone] Plan of Care - Raven Barbour RN - 06/01/2022 6:29 AM EDT [...] GOAL OUTCOME EVALUATION: Consult Note - Lonnie Good [facility] - 05/31/2022 9:42 PM EDT TelePharmacy Home Medication List Update for Medication Reconciliation 05/31/22 9:43 PM Koko Zamora 1940 Allergies Allergen Reactions ??? Aspirin [...] be reconciled bythe provider. Please contact the [facility] Reconciliation Pharmacist at for any questions. Lonnie Good RP Op Note - Giovani Ponce MD - 05/31/2022 4:30 PM EDT DH Operative Note Patient Name: Koko Zamora : [id number] MR#: [id number] Case Date: 05/31/2022 Surgeon: Surgeon(s) and Role: [...] REQUESTING PROVIDER: Regina Hinds MD NAME: Koko Zamora : 1940 HPI: 81yo M w/PMH of [...] stomach. He has had colonoscopies before in [place] - notes first ever he had 6 polyps removed but last colo 5 yrs ago was normal. He lives in [facility]. Currently light-headedness is improved. No fevers, [...] IR Biopsy Spine 07/20/2019 Bobby Marshall MD [facility] INTERVENTIONL RAD ??? IR VERTEBROPLASTY LUMBAR MULTIPLE LEVELS 07/20/2019 IR Vertebroplasty Lumbar Multiple Levels 07/20/2019 Bobby Marshall MD [facility] INTERVENTIONL RAD ??? IR VERTEBROPLASTY THORACIC SINGLE LEVEL 10/25/2020 IR Vertebroplasty Thoracic Single Level 10/25/2020 Matt Chisholm MD [facility] INTERVENTIONL RAD ??? PRO EMBLC/THRMBC FEMORAL POPLITEAL AORTO-ILIAC ARTERY Left 05/15/2022 EMBOLECTOMY OR THROMBECTOMY, FEMOROPOPLITEAL, AORTOILIAC ARTERY BY LEG INCISION (WRVU 19.48) performed by Fito Summers MD at [facility] MAIN OR SOCIAL HX: Social History Socioeconomic [...] sounds, tympanic to percussion RECTAL: performed with head bookkeeper present, no overt masses, fissures, external hemorrhoids, [...] who have questions please contact the health patient care representative that requested your imaging first. Abdomen & [...] Office Visit Vascular Surgery Jing Ghosh APRN [facility] VASCULAR SURGERY [place], [place] [address] (Wo rk) 09/02/2022 Clinical Support Dermatology Thai Lynn MD [facility] DR JENNY BILLY-DERMAT [place], [place] [address] (Wo rk) 09/02/2022 Procedure visit Dermatology Jace Lynn MD [facility] DR JENNY BILLY-DERMAT OLY [place], [place] [address] (Wo rk) 09/05/2022 Appointment Cardiology Trinity Reid MD [facility] CARDIOLOGY [place], [place] [address] (Wo rk) 09/05/2022 Office Visit Cardiology Trinity Reid MD [facility] CARDIOLOGY [place], [place] [address] (Wo rk) documented as of [...] (ABNORMAL) Differential, Automated (06/02/2022 8:20 AM EDT) P athologist Signature Neutrophils % 61.3 % [facility] LABORATORY Neutr Abs (ANC) 4.44 1.70 - [facility] 6.10 [facility] x10(3)/[facility] LABORATORY Lymphocytes % 25.2 % [facility]OR[facility] Lymphocytes Abs 1.8 0.9 - 3.2 [facility] x10(3)/[facility] LABORATORY Monocytes % 10.0 % [facility]OR[facility] Monocyte Abs 0.7 0.3 - 0.9 [facility] x10(3)/[facility] LABORATORY Eosinophils % 2.1 % [facility]OR[facility] Eosinophils Abs 0.2 0.0 - 0.4 [facility] x10(3)/[facility] LABORATORY Basophils % 0.7 % [facility]OR[facility] Basophils Abs 0.0 0.0 - 0.1 [facility] x10(3)/[facility] LABORATORY Immature Gran % 0.70 % [...] Gran Abs 0.05 (H) 0.00 - 0.04 x10(3)/[facility] LABORATORY Specimen Anatomical Collection Method Collection Time Receive d Time (Source) Location / / Volume Laterality Blood 06/02/2022 8:20 AM 8:25 EDT AM EDT Resulting Agency Comment Spec In Lab Kurt Ames MD HEMATOLOGY ORDERABLES Performing Organization Address City/State/[place] [address] (ABNORMAL) Hemogram (06/02/2022 8:20 AM EDT) Analysis Performed At Patho logist Time Signature WBC 7.2 4.0 - 9.5 [facility] x10(3)/[facility] LABORATORY RBC 2.74 (L) 4.58 - [place]DA [place] 5.54 [facility] x10(6)/[facility] LABORATORY Hemoglobin 8.7 (L) 13.7 - ILDA XIAO 16.5 g/dL [facility] LABORATORY Hematocrit 25.7 (L) 40.5 - [facility] 48.5 % [facility] MCV 93.8 (H) 82.9 - [facility] 93.1 [facility] LABORATORY MCH 31.8 27.5 - [facility] 32.1 pg [facility] MCHC 33.9 32.0 - [facility] 35.[facility] g/dL [facility] Platelets 260 145 - 357 [facility] x10(3)/[facility] LABORATORY RDWSD 51.0 (H) 36.0 - [facility] 45.0 [facility] LABORATORY RDWCV 14.9 (H) 11.4 - [facility] 13.8 % [facility] LABORATORY MPV 10.0 7.6 - 12.9 [facility] LABORATORY nRBC % Auto 0.0 % [facility]OR[facility]ORY nRBC Abs Auto 0.000 0.000 - [facility] 0.000 [facility] x10(3)/[facility] LABORATORY Specimen Anatomical Collection Method Collection Time Receive d Time (Source) Location / / Volume Laterality Blood 06/02/2022 8:20 AM 8:25 EDT AM EDT Resulting Agency Comment Spec In Lab Kurt Ames MD HEMATOLOGY ORDERABLES Performing Organization Address City/State/[place] [address] Heparin (unfractionated) Level (06/02/2022 6:30 AM EDT) P athologist Signature Heparin UFH 0.39 IU/mL [facility] LABORATORY Comment: Heparin (anti-Xa) levels should be [...] Victor MD HEMATOLOGY ORDERABLES Performing Organization Address City/[facility]/ZIP [place] [address] Heparin (unfractionated) Level (06/02/2022 12:30 AM EDT) athologist Signature Heparin UFH 0.81 IU/mL [facility] LABORATORY Comment: Heparin (anti-Xa) levels should be [...] Victor MD HEMATOLOGY ORDERABLES Performing Organization Address City/[facility]/ZIP [place] [address] Magnesium (06/02/2022 12:30 AM EDT) athologist Signature Magnesium 0.83 0.69 - 1.07 [facility] mmol/L [facility] LABORATORY Specimen Anatomical Collection Method Collection Time Receive d Time (Source) Location / / Volume Laterality Blood 06/02/2022 12:30 06/02/2022 AM EDT 12:40 AM EDT Resulting Agency Comment Spec In Lab Mahendra Victor MD CHEMISTRY ORDERABLES Performing Organization Address City/State/[place] [address] [facility] LAB[address]ATORY Drive (ABNORMAL) Basic Metabolic Panel (non-fasting) (06/02/2022 12:30 AM EDT) athologist Signature Glucose Lvl 151 65 - 199 [facility] mg/dL [facility] LABORATORY Comment: Diabetes: >=200 mg/dL [...] Organization Address City/State/ZIP Code Phon e Number [place] [id number] (ABNORMAL) Differential, Automated (06/01/2022 7:29 PM EDT) athologist Signature Neutrophils % 68.8 % [facility] LABORATORY Neutr Abs (ANC) 5.34 1.70 - [facility] 6.10 [facility] x10(3)/[facility] LABORATORY Lymphocytes % 19.6 % [facility] LABORATORY Lymphocytes Abs 1.5 0.9 - 3.2 [facility] x10(3)/[facility] LABORATORY Monocytes % 8.1 % [facility]ORATORY Monocyte Abs 0.6 0.3 - 0.9 [facility] x10(3)/[facility] LABORATORY Eosinophils % 1.8 % [facility] LABORATORY Eosinophils Abs 0.1 0.0 - 0.4 [facility] x10(3)/[facility] LABORATORY Basophils % 0.8 % [facility] LABORATORY Basophils Abs 0.1 0.0 - 0.1 [facility] x10(3)/[facility] LABORATORY Immature Gran % 0.90 % [facility]OR[facility]ORY Comment: Immature granulocytes(IG's)percentage an d absolute count will include metamyelocytes, myelocytes, and promyelo cytes. Blood smears from CBCs yielding IG's will be scanned manually for concor dance. If this scan disagrees with the automated IG or if promyelocytes are not ed, a manual differential will be performed. Rain Gran Abs 0.07 (H) 0.00 - 0.04 x10(3)/[facility] LABORATORY Specimen Anatomical Collection Method Collection Time Receive d Time (Source) Location / / Volume Laterality Blood 06/01/2022 7:29 PM 7:29 EDT PM EDT Resulting Agency Comment Spec In Lab Kurt Ames MD HEMATOLOGY ORDERABLES Performing Organization Address City/State/[place] [address] (ABNORMAL) Hemogram (06/01/2022 7:29 PM EDT) Analysis Performed At Patho logist Time Signature WBC 7.8 4.0 - 9.5 [facility] x10(3)/[facility] LABORATORY RBC 2.65 (L) 4.58 - [facility] 5.54 [facility] x10(6)/[facility] LABORATORY Hemoglobin 8.3 (L) 13.7 - [facility] 16.5 g/dL [facility] LABORATORY Hematocrit 24.8 (L) 40.5 - [facility] 48.5 % [facility] LABORATORY MCV 93.6 (H) 82.9 - [facility] 93.1 [facility] LABORATORY MCH 31.3 27.5 - [facility] 32.1 pg [facility] LABORATORY MCHC 33.5 32.0 - [facility] 35.7 g/dL [facility] LABORATORY Platelets 263 145 - 357 [facility] x10(3)/[facility] LABORATORY RDWSD 52.8 (H) 36.0 - [facility] 45.0 [facility] LABORATORY RDWCV 15.4 (H) 11.4 - [facility] 13.8 % [facility] LABORATORY MPV 10.4 7.6 - 12.9 [facility] LABORATORY nRBC % Auto 0.0 % [facility] LABORATORY nRBC Abs Auto 0.000 0.000 - [facility] 0.000 [facility] x10(3)/[facility] LABORATORY Specimen Anatomical Collection Method Collection Time Receive d Time (Source) Location / / Volume Laterality Blood 06/01/2022 7:29 PM 2 7:29 EDT PM EDT Resulting Agency Comment Spec In Lab Kurt Ames MD HEMATOLOGY ORDERABLES Performing Organization Address City/[facility]/ZIP [place] [address] Heparin (unfractionated) Level (06/01/2022 7:29 PM EDT) P athologist Signature Heparin UFH 0.81 IU/mL [facility] LABORATORY Comment: Heparin (anti-Xa) levels should be [...] / Volume Laterality Blood 06/01/2022 7:29 PM 2 7:29 EDT PM EDT Resulting Agency Comment Spec In Lab Mahendra Victor MD HEMATOLOGY ORDERABLES Performing Organization Address City/[facility]/ZIP [place] [address] (ABNORMAL) Heparin (unfractionated) Level (06/01/2022 11:32 AM EDT) Patholo gist Method Time Signature Heparin UFH 1.05 IU/mL [facility] (Critical) [facility] LABORATORY Comment: Critical Result called by ?? [...] Organization Address City/State/[place] [address] (ABNORMAL) Differential, Automated (06/01/2022 5:56 AM EDT) [facility] Method Time Signature Neutrophils % 62.7 % [facility] LABORATORY Neutr Abs (ANC) 6.11 (H) 1.70 - [facility] 6.10 [facility] x10(3)/[facility] LABORATORY Lymphocytes % 23.5 % [facility] LABORATORY Lymphocytes Abs 2.3 0.9 - 3.2 [facility] x10(3)/[facility] LABORATORY Monocytes % 10.0 % [facility] LABORATORY Monocyte Abs 1.0 (H) 0.3 - 0.9 [facility] x10(3)/[facility] LABORATORY Eosinophils % 2.2 % [facility] LABORATORY Eosinophils Abs 0.2 0.0 - 0.4 [facility] x10(3)/[facility] LABORATORY Basophils % 0.9 % [facility] LABORATORY Basophils Abs 0.1 0.0 - 0.1 [facility] x10(3)/[facility] LABORATORY Immature Gran % 0.70 % [facility] LABORATORY Comment: Immature granulocytes(IG's)percentage an d absolute count will include metamyelocytes, myelocytes, and promyelo cytes. Blood smears from CBCs yielding IG's will be scanned manually for tracy armstrong. If this scan disagrees with the automated IG or if promyelocytes are not ed, a manual differential will be performed. Rain Gran Abs 0.07 (H) 0.00 - 0.04 x10(3)/[facility] LABORATORY Specimen Anatomical Collection Method Collection Time Receive d Time (Source) Location / / Volume Laterality Blood 06/01/2022 5:56 AM 6:05 EDT AM EDT Resulting Agency Comment Spec In Lab Arpita Valle MD HEMATOLOGY ORDERABLES Performing Organization Address City/State/ZIP Code Phon e Number [place] [id number]OS[address] LAB[address]ORY [address] (ABNORMAL) Hemogram (06/01/2022 5:56 AM EDT) Analysis Performed At Patho logist Time Signature WBC 9.7 (H) 4.0 - 9.5 [facility] x10(3)/[facility] LABORATORY RBC 2.83 (L) 4.58 - [facility] 5.54 [facility] x10(6)/[facility] LABORATORY Hemoglobin 9.0 (L) 13.7 - [facility] 16.5 g/dL [facility] LABORATORY Hematocrit 26.7 (L) 40.5 - [facility] 48.5 % [facility] LABORATORY MCV 94.3 (H) 82.9 - [facility] 93.1 [facility] LABORATORY MCH 31.8 27.5 - [facility] XIAO 32.1 pg [facility] LABORATORY MCHC 33.7 32.0 - [facility] 35.7 g/dL [facility] LABORATORY Platelets 250 145 - 357 [facility] x10(3)/[facility] LABORATORY RDWSD 54.3 (H) 36.0 - [facility] 45.0 [facility] LABORATORY RDWCV 15.9 (H) 11.4 - [facility] X[facility]O 13.8 % [facility] LABORATORY MPV 10.5 7.6 - 12.9 [facility] LABORATORY nRBC % Auto 0.0 % [facility] LABORATORY nRBC Abs Auto 0.000 0.000 - [facility] 0.000 [facility] x10(3)/[facility] LABORATORY Specimen Anatomical Collection Method Collection Time Receive d Time (Source) Location / / Volume Laterality Blood 06/01/2022 5:56 AM 2 6:05 EDT AM EDT Resulting Agency Comment Spec In Lab Arpita Valle MD HEMATOLOGY ORDERABLES Performing Organization Address City/[facility]/ZIP Code Phon e Number [address] Heparin (unfractionated) Level (06/01/2022 4:30 AM EDT) P athologist Signature Heparin UFH 0.68 IU/mL [facility] LABORATORY Comment: Heparin (anti-Xa) levels should be [...] / Volume Laterality Blood 06/01/2022 4:30 AM 2 4:33 EDT AM EDT Resulting Agency Comment Spec In Lab Mahendra Victor MD HEMATOLOGY ORDERABLES Performing Organization Address City/State/ZIP [place] [address] (ABNORMAL) Urinalysis with reflex Culture (06/01/2022 4:00 AM EDT) Patholo gist Method Time Signature Glucose UA 500 Negative [facility] (Critical) mg/dL [facility] LABORATORY Comment: Urinalysis result NOT critical without a combination of Glucose greater than or equal to 500 mg/dL AND Ketones greate r than or equal to 80 mg/dL Protein UA Negative Negative mg/dL [facility] LABORATORY Bilirubin UA Negative Negative mg/dL [facility] LABORATORY Comment: Clinical correlation required for positi ve Urine Bilirubin results as false positive may occur with some drugs and d rug related products. If a false positive is suspected a serum total bili quarles should be considered if clinically indicated. Urobilinogen UA Normal Normal mg/dL [facility] LABORATORY pH UA 6.0 5.0 - 8.0 [facility] LABORATORY Blood UA Negative Negative mg/dL [facility] LABORATORY Ketones UA Negative Negative mg/dL [facility] LABORATORY Nitrite UA Negative Negative [facility] LABORATORY Leukocytes UA Negative Negative [facility] LABORATORY Appearance UA Clear Clear [facility] LABORATORY Spec Howard UA >=1.030 (A) 1.005 - 1.030 [facility] LABORATORY Color UA Yellow Yellow [facility] LABORATORY Culture Reflexed No [facility] LABORATORY Specimen Anatomical Collection Method Collection Time Receive d Time (Source) Location / / Volume Laterality Clean Catch 06/01/2022 4:00 AM 2 4:26 Urine EDT AM EDT Resulting Agency Comment Spec In Lab Mahendra Victor MD URINE ORDERABLES Performing Organization Address City/[facility]/ZIP Code Phon e Number [address] Magnesium (06/01/2022 1:00 AM EDT) P athologist Signature Magnesium 0.93 0.69 - 1.07 [facility] mmol/L [facility] LABORATORY Specimen Anatomical Collection Method Collection Time Receive d Time (Source) Location / / Volume Laterality Blood 06/01/2022 1:00 AM 2 1:37 EDT AM EDT Resulting Agency Comment Spec In Lab Mahendra Victor MD CHEMISTRY ORDERABLES Performing Organization Address City/[facility]/ZIP [place] [address] (ABNORMAL) Basic Metabolic Panel (non-fasting) (06/01/2022 1:00 AM EDT) P athologist Signature Glucose Lvl 148 65 - 199 [facility] mg/dL [facility] LABORATORY Comment: Diabetes: >=200 mg/dL [...] [facility] LABORATORY Anion Gap 9 5 - 15 mmol/L [facility] LABORATORY Calcium 8.6 8.5 - 10.5 mg/dL [facility] LABORATORY Estimated GFR 91 >=60 mL/min/1.73 m?? [facility] [...] Organization Address City/State/ZIP Code Phon e Number [address] (ABNORMAL) Differential, Automated (06/01/2022 12:00 AM EDT) P athologist Signature Neutrophils % 64.6 % [facility] LABORATORY Neutr Abs (ANC) 5.60 1.70 - [facility] 6.10 [facility] x10(3)/[facility] LABORATORY Lymphocytes % 22.4 % [facility] LABORATORY Lymphocytes Abs 1.9 0.9 - 3.2 [facility] x10(3)/[facility] LABORATORY Monocytes % 9.5 % [facility] LABORATORY Monocyte Abs 0.8 0.3 - 0.9 [facility] x10(3)/[facility] LABORATORY Eosinophils % 2.1 % [facility] LABORATORY Eosinophils Abs 0.2 0.0 - 0.4 [facility] x10(3)/[facility] LABORATORY Basophils % 0.6 % [facility] LABORATORY Basophils Abs 0.0 0.0 - 0.1 [facility] x10(3)/[facility] LABORATORY Immature Gran % 0.80 % [facility] LABORATORY Comment: Immature granulocytes(IG's)percentage an d absolute count will include metamyelocytes, myelocytes, and promyelo cytes. Blood smears from CBCs yielding IG's will be scanned manually for concor dance. If this scan disagrees with the automated IG or if promyelocytes are not ed, a manual differential will be performed. Rain Gran Abs 0.07 (H) 0.00 - 0.04 x10(3)/[facility] LABORATORY Specimen (Source) Anatomical Collection Method Collection Time Re ceived Time Location / / Volume Laterality Blood 06/01/2022 06/01/2022 12:1 0 AM EDT Resulting Agency Comment Spec In Lab Arpita Valle MD HEMATOLOGY ORDERABLES Performing Organization Address City/State/[place] [address] (ABNORMAL) Hemogram (06/01/2022 12:00 AM EDT) Analysis Performed At Patho logist Time Signature WBC 8.7 4.0 - 9.5 [facility] x10(3)/[facility] LABORATORY RBC 2.77 (L) 4.58 - [facility] 5.54 [facility] x10(6)/[facility] LABORATORY Hemoglobin 8.6 (L) 13.7 - [facility] 16.5 g/dL [facility] LABORATORY Hematocrit 25.7 (L) 40.5 - [facility] 48.5 % [facility] LABORATORY MCV 92.8 82.9 - [facility] 93.1 [facility] LABORATORY MCH 31.0 27.5 - [facility] 32.1 pg [facility] LABORATORY MCHC 33.5 32.0 - [facility] 35.7 g/dL [facility] LABORATORY Platelets 260 145 - 357 [facility] x10(3)/[facility] LABORATORY RDWSD 51.9 (H) 36.0 - [facility] 45.0 [facility] LABORATORY RDWCV 15.5 (H) 11.4 - [facility] XIAO 13.8 % [facility] LABORATORY MPV 10.4 7.6 - 12.9 [facility] LABORATORY nRBC % Auto 0.0 % [facility] LABORATORY nRBC Abs Auto 0.000 0.000 - [facility] 0.000 [place] [id number](3)/[facility] LABORATORY Specimen (Source) Anatomical Collection Method Collection Time Re ceived Time Location / / Volume Laterality Blood 06/01/2022 06/01/2022 12:1 0 AM EDT Resulting Agency Comment Spec In Lab Arpita Valle MD HEMATOLOGY ORDERABLES Performing Organization Address City/State/Z[place] [address] (ABNORMAL) Differential, Automated (05/31/2022 9:17 PM EDT) P athologist Signature Neutrophils % 59.6 % [facility] LABORATORY Neutr Abs (ANC) 3.98 1.70 - [facility] 6.10 [facility] x10(3)/[facility] LABORATORY Lymphocytes % 27.5 % [facility] LABORATORY Lymphocytes Abs 1.8 0.9 - 3.2 [facility] x10(3)/[facility] LABORATORY Monocytes % 9.1 % [facility] LABORATORY Monocyte Abs 0.6 0.3 - 0.9 [facility] x10(3)/[facility] LABORATORY Eosinophils % 2.4 % [facility] LABORATORY Eosinophils Abs 0.2 0.0 - 0.4 [facility] x10(3)/[facility] LABORATORY Basophils % 0.7 % [facility] LABORATORY Basophils Abs 0.0 0.0 - 0.1 [facility] x10(3)/[facility] LABORATORY Immature Gran % 0.70 % [...] Gran Abs 0.05 (H) 0.00 - 0.04 x10(3)/[facility] LABORATORY Specimen Anatomical Collection Method Collection Time Receive d Time (Source) Location / / Volume Laterality Blood 05/31/2022 9:17 PM 9:25 EDT PM EDT Resulting Agency Comment Spec In Lab Arpita Valle MD HEMATOLOGY ORDERABLES Performing Organization Address City/State/[place] [address] (ABNORMAL) Hemogram (05/31/2022 9:17 PM EDT) Analysis Performed At Patho logist Time Signature WBC 6.7 4.0 - 9.5 [facility] x10(3)/[facility] LABORATORY RBC 2.74 (L) 4.58 - [facility] 5.54 [facility] x10(6)/[facility] LABORATORY Hemoglobin 8.5 (L) 13.7 - [facility] 16.5 g/dL [facility] LABORATORY Hematocrit 25.7 (L) 40.5 - [facility] 48.5 % [facility] LABORATORY MCV 93.8 (H) 82.9 - [facility] 93.1 [facility] LABORATORY MCH 31.0 27.5 - [facility] 32.1 pg [facility] LABORATORY MCHC 33.1 32.0 - [facility] 35.7 g/dL [facility] LABORATORY Platelets 233 145 - 357 [facility] x10(3)/[facility] LABORATORY RDWSD 51.9 (H) 36.0 - [facility] 45.0 [facility] LABORATORY RDWCV 15.3 (H) 11.4 - [facility] 13.8 % [facility] LABORATORY MPV 10.3 7.6 - 12.9 [facility] LABORATORY nRBC % Auto 0.0 % [facility] LABORATORY nRBC Abs Auto 0.000 0.000 - [facility] 0.000 [facility] x10(3)/[facility] LABORATORY Specimen Anatomical Collection Method Collection Time Receive d Time (Source) Location / / Volume Laterality Blood 05/31/2022 9:17 PM 9:25 EDT PM EDT Resulting Agency Comment Spec In Lab Arpita Valle MD HEMATOLOGY ORDERABLES Performing Organization Address City/State/[place] [address] Transfuse RBC (05/31/2022 7:36 PM EDT) Regina Hinds MD NURSING TREATMENT ORDERABLES - BLOOD ADMIN Transfuse RBC (05/31/2022 7:36 PM EDT) Regina Hinds MD NURSING TREATMENT ORDERABLES - BLOOD ADMIN UPPER GI ENDOSCOPY (05/31/2022 3:37 PM EDT) Component Value Ref Test Analysis Performed At [facility] Range Method Time Signature UPPER GI [facility] ENDOSCOPY Endoscopy Procedure Date: 05/31/2022 3:37 PM ? Patient Name: Koko Zamora ? Date of : 1940 ? Age: 81 ? Order #: [id number] ? Instrument Name: [id number] ? Procedure: ? Upper GI endoscopy Indications: ? Melena, Suspected upper ? gastrointestinal bleeding Providers: ? Torrey Munoz , ? Vani Wei RN, Juhi Maxwell, ? Alannah Hutchinson, Techn ician Referring MD: ?Regina Hinds Medicines: ? Propofol per [...] in cluding, ? but not limited to, haroonmarvin jasmine, ? perforation, infection, mi ssing a ? cancer, and adverse medica tion ? reactions. The Endoscope w as ? introduced through the edison , and ? advanced to the fourth par [...] Procedure Code(s): ? --- Professional --- ? 39249, Esophagogastroduode noscopy, ? flexible, transoral; with control [...] of stomach ? and duodenum CPT copyright 202 [employer]. All rights reserved. The codes documented in this report are preliminary and upon lithographed plate inspector review may be revised to meet current [...] who have questions please contact the health patient care representative that requested your imaging first. ? Narrative [...] contrast was not administered. COMPARISON: 05/15/2022 from [facility] FINDINGS: GI Tract: Pre-contrast: No [...] enlarged lymph nodes. Vasculature: Patent common iliac, cone trucker al iliac, and common femoral arteries bilaterally. [...] the original. EXAMINATION: CT ABDOMEN AND PELVIS WWO C ONTRAST (GI BLEED) CLINICAL HISTORY: Significant Hb drop. [...] contrast was not administered. COMPARISON: 05/15/2022 from [facility] FINDINGS: GI Tract: Pre-contrast: No [...] enlarged lymph nodes. Vasculature: Patent common iliac, cone trucker al iliac, and common femoral arteries bilaterally. [...] ho have questions please contact the health patient care representative that requested your imaging first. Regina Hinds MD IMG CT ORDERABLES Type and Screen Validity (05/31/2022 1:43 PM EDT) [facility] Method Time Signature T&S only valid [facility] LABORATORY Comment: This Type and Screen result is only valid at the [facility] Hospital Specimen Anatomical Collection Method Collection Time Receive d Time (Source) Location / / Volume Laterality Blood 05/31/2022 1:43 PM 2 1:57 EDT PM EDT Resulting Agency Comment Spec In Lab Regina Hinds MD BLOOD BANK ORDERABLES Performing Organization Address City/State/ZIP [place] [address] ABORH Recheck Status (05/31/2022 1:43 PM EDT) [facility] Method Time Signature ABORH Type Completed [facility] LABORATORY Specimen Anatomical Collection Method Collection Time Receive d Time (Source) Location / / Volume Laterality Blood 05/31/2022 1:43 PM 2 1:57 EDT PM EDT Resulting Agency Comment Spec In Lab Regina Hinds MD BLOOD BANK ORDERABLES Performing Organization Address City/[facility]/ZIP [place] [address] Antibody screen (05/31/2022 1:43 PM EDT) [facility] Method Time Signature Ab Screen Negative [facility] LABORATORY Expires at 06/03/2022 [facility] [id number] on: [facility] LABORATORY Specimen Anatomical Collection Method Collection Time Receive d Time (Source) Location / / Volume Laterality Blood 05/31/2022 1:43 PM 2 1:57 EDT PM EDT Resulting Agency Comment Spec In Lab Regina Hinds MD BLOOD BANK ORDERABLES Performing Organization Address City/[facility]/ZIP [place] [address] ABO/Rh Typing (05/31/2022 1:43 PM EDT) P athologist Signature ABORh Type O Pos [facility] LABORATORY Specimen Anatomical Collection Method Collection Time Receive d Time (Source) Location / / Volume Laterality Blood 05/31/2022 1:43 PM 2 1:57 EDT PM EDT Resulting Agency Comment Spec In Lab Regina Hinds MD BLOOD BANK ORDERABLES Performing Organization Address City/[facility]/ZIP Code Phon e Number [address] Prepare RBC (05/31/2022 1:35 PM EDT) P athologist Signature Dispensed? Yes [facility] LABORATORY Specimen Anatomical Collection Method Collection Time Receive d Time (Source) Location / / Volume Laterality Blood 05/31/2022 1:35 PM 2 1:30 EDT PM EDT Regina Hinds MD BLOOD BANK ORDERABLES Performing Organization Address City/State/ZIP Code Phon e Number [address] Prepare RBC (05/31/2022 1:25 PM EDT) P athologist Signature Dispensed? Yes [facility] LABORATORY Specimen Anatomical Collection Method Collection Time Receive d Time (Source) Location / / Volume Laterality Blood 05/31/2022 1:25 PM 2 1:23 EDT PM EDT Regina Hinds MD BLOOD BANK ORDERABLES Performing Organization Address City/[facility]/ZIP Code Phon e Number [address] (ABNORMAL) Differential, Automated (05/31/2022 12:44 PM EDT) P athologist Signature Neutrophils % 62.0 % [facility] LABORATORY Neutr Abs (ANC) 4.71 1.70 - [facility] 6.10 [facility] x10(3)/[facility] LABORATORY Lymphocytes % 24.1 % [facility] LABORATORY Lymphocytes Abs 1.8 0.9 - 3.2 [facility] x10(3)/[facility] LABORATORY Monocytes % 10.8 % [facility] LABORATORY Monocyte Abs 0.8 0.3 - 0.9 [facility] x10(3)/[facility] LABORATORY Eosinophils % 1.6 % [facility] LABORATORY Eosinophils Abs 0.1 0.0 - 0.4 [facility] x10(3)/[facility] LABORATORY Basophils % 0.7 % [facility] LABORATORY Basophils Abs 0.0 0.0 - 0.1 [facility] x10(3)/[facility] LABORATORY Immature Gran % 0.80 % [facility] LABORATORY Comment: Immature granulocytes(IG's)percentage an d absolute count will include metamyelocytes, myelocytes, and promyelo cytes. Blood smears from CBCs yielding IG's will be scanned manually for concor dance. If this scan disagrees with the automated IG or if promyelocytes are not ed, a manual differential will be performed. Rain Gran Abs 0.06 (H) 0.00 - 0.04 x10(3)/[facility] LABORATORY Specimen Anatomical Collection Method Collection Time Receive d Time (Source) Location / / Volume Laterality Blood 05/31/2022 12:44 05/31/2022 PM EDT 12:57 PM EDT Resulting Agency Comment Spec In Lab Brittany Ramirez MD HEMATOLOGY ORDERABLES Performing Organization Address City/State/Z[place] [address] (ABNORMAL) Hemogram (05/31/2022 12:44 PM EDT) Analysis Performed At Patho logist Time Signature WBC 7.6 4.0 - 9.5 [facility] x10(3)/[facility] LABORATORY RBC 2.11 (L) 4.58 - [facility] 5.54 [facility] x10(6)/[facility] LABORATORY Hemoglobin 6.9 (L) 13.7 - [facility] 16.[facility] g/dL [facility] LABORATORY Hematocrit 20.8 (L) 40.5 - [facility] 48.5 % [facility] [facility] MCV 98.6 (H) 82.9 - [facility] 93.1 fL [facility] MCH 32.7 (H) 27.5 - [facility] 32.1 pg [facility] MCHC 33.2 32.0 - [facility] 35.7 g/dL [facility] Platelets 255 145 - 357 [facility] x10(3)/[facility] LABORATORY RDWSD 47.7 (H) 36.0 - [facility] 45.0 [facility] LABORATORY RDWCV 13.4 11.4 - [facility] 13.8 % [facility] MPV 10.7 7.6 - 12.9 [facility] LABORATORY nRBC % Auto 0.0 % [facility] LABOR[facility]ORY nRBC Abs Auto 0.000 0.000 - [facility] 0.000 [facility] x10(3)/[facility] LABORATORY Specimen Anatomical Collection Method Collection Time Receive d Time (Source) Location / / Volume Laterality Blood 05/31/2022 12:44 05/31/2022 PM EDT 12:57 PM EDT Resulting Agency Comment Spec In Lab Brittany Ramirez MD HEMATOLOGY ORDERABLES Performing Organization Address City/State/Z[place] [address] (ABNORMAL) BLOOD GAS 2 VENOUS (05/31/2022 11:24 AM EDT) P athologist Signature pH Marco Antonio 7.38 7.32 - [facility] 7.42 [facility] pCO2 Marco Antonio 40 (L) 41 - 51 [facility] LABORATORY pO2 Marco Antonio 18 (L) 25 - 40 [facility] LABORATORY HCO3 Marco Antonio 23.3 mmol/L [facility] BE Marco Antonio -1.8 mmol/L [facility]ORY Hgb Blood Gas 7.0 (L) 13.7 - [facility] 16.5 g/dL [facility] O2HB Marco Antonio 24.3 % [facility]ORY COHB Marco Antonio 1.4 % [facility] LAB[facility]ORY Comment: Nonsmokers: 0.5-1.5% COHB Smokers: Variable, but usually less than 10% Toxic: 20-30% COHB Lethal: Greater than 60% COHB METHB Marco Antonio 1.7 (H) <=1.5 % [facility] Na Whole Blood 137 135 - 145 mmol/L [facility] K Whole Blood 3.9 3.5 - 5.0 mmol/L [facility] Comment: Please note: Patients [...] Whole Blood 107 98 - 107 mmol/L [facility] Gluc Whole Bld 204 (H) 65 - 199 mg/dL [facility] Comment: Diabetes: >=200 mg/dL plus symp toms Lactate WB 1.4 0.5 - 2.2 mmol/L [facility] LABOR[facility]ORY BGas Source Venous [facility] LABOR[facility] Specimen Anatomical Collection Method Collection Time Receive d Time (Source) Location / / Volume Laterality Blood 05/31/2022 11:24 05/31/2022 AM EDT 11:24 AM EDT Regina Hinds MD CHEMISTRY ORDERABLES Performing Organization Address City/[facility]/ZIP [place] [address] TSH Van Zandt (05/31/2022 11:20 AM EDT) P athologist Signature TSH 1.67 0.27 - 4.20 [facility] mcIU/mL [facility] Comment: Reference Interval (mcIU/mL): Females: ??First Trimester: 0.23-3.88 ??Second Trimester: 0.22-3.90 ??Third Trimester: 0.44-4.66 Specimen Anatomical Collection Method Collection Time Receive d Time (Source) Location / / Volume Laterality Blood 05/31/2022 11:20 05/31/2022 AM EDT 11:28 AM EDT Resulting Agency Comment Spec In Lab Regina Hinds MD CHEMISTRY ORDERABLES Performing Organization Address City/State/ZIP [place] [address] XR Chest PA & [...] who have questions please contact the health patient care representative that requested your imaging first. ? Narrative [...] ho have questions please contact the health patient care representative that requested your imaging first. Regina Hinds MD IMG DX ORDERABLES Lipase (05/31/2022 10:50 AM EDT) athologist Signature Lipase 41 0 - 60 [facility] unit/L [facility] Specimen Anatomical Collection Method Collection Time Receive d Time (Source) Location / / Volume Laterality Blood Venous Draw / 05/31/2022 10:50 05/31/2022 Unknown AM EDT 11:11 AM EDT Resulting Agency Comment Spec In Lab Zain Champion MD CHEMISTRY ORDERABLES Performing Organization Address City/State/[place] [address] (ABNORMAL) Hepatic Function Panel (05/31/2022 10:50 AM EDT) Analysis Performed At Patho logist Time Signature Total Protein 6.4 6.1 - 8.0 [facility] g/dL [facility] Albumin 4.1 3.2 - 5.2 [facility] g/dL [facility] AST 24 0 - 39 [facility] unit/L [facility] ALT 44 0 - 55 [facility] unit/L [facility] Alk Phos 63 40 - 130 [facility] unit/L [facility] Total <0.2 (L) 0.2 - 1.3 [facility] Bilirubin mg/dL [facility] Bili, Direct 0.1 0.0 - 0.3 [facility] Specimen Anatomical Collection Method Collection Time Receive d Time (Source) Location / / Volume Laterality Blood Venous Draw / 05/31/2022 10:50 05/31/2022 Unknown AM EDT 11:11 AM EDT Resulting Agency Comment Spec In Lab Zain Champion MD CHEMISTRY ORDERABLES Performing Organization Address City/State/ZIP Code Phon e Number [address] Blue Tube HOLD (05/31/2022 10:50 AM EDT) P athologist Signature Blue Hold Sample in [facility]. [facility] Specimen Anatomical Collection Method Collection Time Receive d Time (Source) Location / / Volume Laterality Blood Venous Draw / 05/31/2022 10:50 05/31/2022 Unknown AM EDT 11:05 AM EDT Brittany Ramirez MD HEMATOLOGY ORDERABLES Performing Organization Address City/[facility]/ZIP Code Phon e Number [address] (ABNORMAL) Differential, Automated (05/31/2022 10:50 AM EDT) P athologist Signature Neutrophils % 66.9 % [facility]ORY Neutr Abs (ANC) 5.58 1.70 - [facility] 6.10 [facility] x10(3)/[facility] LABORATORY Lymphocytes % 22.2 % [facility] LABORATORY Lymphocytes Abs 1.8 0.9 - 3.2 [facility] x10(3)/[facility] LABORATORY Monocytes % 7.8 % [facility] LABORATORY Monocyte Abs 0.6 0.3 - 0.9 [facility] x10(3)/[facility] LABORATORY Eosinophils % 1.2 % [facility] LABORATORY Eosinophils Abs 0.1 0.0 - 0.4 [facility] x10(3)/[facility] LABORATORY Basophils % 0.7 % [facility] LABORATORY Basophils Abs 0.1 0.0 - 0.1 [facility] x10(3)/[facility] LABORATORY Immature Gran % 1.20 % [facility]ORY Comment: Immature granulocytes(IG's)percentage an d absolute count will include metamyelocytes, myelocytes, and promyelo cytes. Blood smears from CBCs yielding IG's will be scanned manually for concor dance. If this scan disagrees with the automated IG or if promyelocytes are not ed, a manual differential will be performed. Rain Gran Abs 0.10 (H) 0.00 - 0.04 x10(3)/[facility] LABORATORY Specimen Anatomical Collection Method Collection Time Receive d Time (Source) Location / / Volume Laterality Blood 05/31/2022 10:50 05/31/2022 AM EDT 11:03 AM EDT Resulting Agency Comment Spec In Lab Brittany Ramirez MD HEMATOLOGY ORDERABLES Performing Organization Address City/State/ZIP [place] [address] (ABNORMAL) Hemogram (05/31/2022 10:50 AM EDT) Analysis Performed At Patho logist Time Signature WBC 8.3 4.0 - 9.5 [facility] x10(3)/[facility] LABORATORY RBC 2.26 (L) 4.58 - [facility] 5.54 [facility] x10(6)/[facility] LABORATORY Hemoglobin 7.4 (L) 13.7 - [facility] 16.5 g/dL [facility] Hematocrit 22.3 (L) 40.5 - [facility] 48.5 % [facility] MCV 98.7 (H) 82.9 - [facility] 93.1 [facility] LABORATORY MCH 32.7 (H) 27.5 - [facility] 32.1 [facility] LABORATORY MCHC 33.2 32.0 - [facility] 35.7 g/dL [facility] Platelets 283 145 - 357 [facility] x10(3)/[facility] LABORATORY RDWSD 47.0 (H) 36.0 - [facility] 45.0 [facility] RDWCV 13.4 11.4 - [facility] [place] 13.8 % [facility] MPV 10.8 7.6 - 12.9 [facility] nRBC % Auto 0.0 % [facility] LABORATORY nRBC Abs Auto 0.000 0.000 - [facility] 0.000 [facility] x10(3)/[facility] LABORATORY Specimen Anatomical Collection Method Collection Time Receive d Time (Source) Location / / Volume Laterality Blood 05/31/2022 10:50 05/31/2022 AM EDT 11:03 AM EDT Resulting Agency Comment Spec In Lab Brittany Ramirez MD HEMATOLOGY ORDERABLES Performing Organization Address City/[facility]/ZIP [place] [address] Phosphorus (05/31/2022 10:50 AM EDT) P athologist Signature Phosphorus 3.2 2.5 - 4.5 [facility] mg/dL [facility] Specimen Anatomical Collection Method Collection Time Receive d Time (Source) Location / / Volume Laterality Blood 05/31/2022 10:50 05/31/2022 AM EDT 11:03 AM EDT Resulting Agency Comment Spec In Lab Regina Hinds MD CHEMISTRY ORDERABLES Performing Organization Address City/[facility]/ZIP Code Phon e Number [address] Magnesium (05/31/2022 10:50 AM EDT) P athologist Signature Magnesium 0.93 0.69 - 1.07 [facility] mmol/L [facility] Specimen Anatomical Collection Method Collection Time Receive d Time (Source) Location / / Volume Laterality Blood 05/31/2022 10:50 05/31/2022 AM EDT 11:03 AM EDT Resulting Agency Comment Spec In Lab Regina Hinds MD CHEMISTRY ORDERABLES Performing Organization Address City/[facility]/ZIP [place] [address] (ABNORMAL) pro-Brain Natriuretic Peptide (05/31/2022 10:50 AM EDT) P athologist Signature ProBNP 1,077 (H) <=449 [facility] pg/mL [facility] Specimen Anatomical Collection Method Collection Time Receive d Time (Source) Location / / Volume Laterality Blood 05/31/2022 10:50 05/31/2022 AM EDT 11:03 AM EDT Resulting Agency Comment Spec In Lab Regina Hinds MD CHEMISTRY ORDERABLES Performing Organization Address City/State/Z[place] [address] Troponin (05/31/2022 10:50 AM EDT) athologist Signature Troponin-T <0.01 0.00 - 0.00 [facility] ng/mL [facility] Comment: The 99th percentile for Troponin T is le ss than 0.01 ng/mL, any detectable cTnT concentration using this assay should be considered elevated. According to the third universal definit ion of myocardial infarction the following criteria with a clinical prese ntation consistent with acute myocardial ischemia meets the diagnosis for a myocardial infarction ([place]). Detection of a rise and/or fall of [...] additional sample may be indicated. Reference: Third [place] Definition of Myocardial Infarction. Journal of the [place] [employer] 2012;60:1581-98 Specimen Anatomical Collection Method Collection Time Receive d Time (Source) Location / / Volume Laterality Blood 05/31/2022 10:50 05/31/2022 AM EDT 11:03 AM EDT Resulting Agency Comment Spec In Lab Regina Hinds MD CHEMISTRY ORDERABLES Performing Organization Address City/State/Z[place] [address] (ABNORMAL) Basic Metabolic Panel (non-fasting) (05/31/2022 10:50 AM EDT) P athologist Signature Glucose Lvl 223 (H) 65 - 199 [facility] mg/dL [facility] Comment: Diabetes: >=200 mg/dL [...] estions. Chloride 107 98 - 107 mmol/L [facility] LABORATORY CO2 23 22 - 31 mmol/L [facility] LABORATORY Anion Gap 10 5 - 15 mmol/L [facility] LABORATORY Calcium 9.1 8.5 - 10.5 mg/dL [facility] LABORATORY Estimated GFR 86 >=60 mL/min/1.73 m?? [facility] [...] Organization Address City/State/[place] [address] EKG 12 Lead (05/31/2022 10:11 AM EDT) Component Value Ref Range Test Analysis Performed Pathologis t Method Time At Signature Ventricular rate 106 BPM MUSE SYSTEM QRS Duration 122 ms MUSE SYSTEM Q-T Interval 368 ms MUSE SYSTEM QTC Calculated 488 ms MUSE SYSTEM (Bezet) Calculated R [place] -43 degrees MUSE SYSTEM Calculated T [place] 109 degrees MUSE SYSTEM INTERPRETATION Atrial fibrillation [...] erpretation Confirmed by fellow MD Mike, [place] ([id number]) on 022 8:36:21 PM Confirmed by MD MARKS JOHN ([id number]) on 06/03/2022 5:04:32 PM Specimen Anatomical Collection Method Collection Time Receive d Time (Source) Location / / Volume Laterality 05/31/2022 10:11 06/03/2022 5:04 AM EDT PM EDT Regina Hinds MD ECG ORDERABLES Performing Organization Address City/State/ZIP Code Phon e Number MUSE SYSTEM documented in this encounter Visit Diagnoses Diagnosis GIB (gastrointestinal bleeding) - Primar y Hemorrhage of gastrointestinal tract, un specified documented in this encounter Admitting Diagnoses Diagnosis GIB [...] HE [facility] PROTOCOL, Starting on Fri05/31/22 at 2013, Until [place] 06/02/22 at 1702, Per Pro tocol, START ADJUSTMENT [...] mL/hr), Intravenous, CONTINUOUS, Starting on Fri05/31/22 at 2015, Until [place] 06/02/22 at 1702, Begin infusion at 950 units [...] 12:51 AM EDT 400 Units/hr 8 mL/hr iohexoL (Omnipaque) (350 mg/mL) solution Given 05/31/2022 2:29 P M EDT 125 mLs 0-200 mL 0-200 mL, Intravenous, ONCE PRN, 1 dose, Starting on Fri05/31/22 at 1428, Until Fri05/31/22 at 1429, Per Protocol, Warning Vesicant/Irritant Medication , Radiology Contrast, Routine lidocaine (Lidoderm) Patch Applied 06/02/2022 4:17 AM [...] EVERY 6 HOURS SCHEDULED, First dose on Fri06/01/22 at 0000, Until Discontinued, Please hold for systolic <90 or HR <60, Routine Given 06/02/2022 12:35 AM EDT 12.5 mg Given 06/01/2022 5:28 PM EDT 12.5 mg pantoprazole (Protonix) injection 40 mg Given 06/01/2022 8:12 AM EDT 40 mg 40 mg, Intravenous, 2 TIMES DAILY, First dose on Fri05/31/22 at 1436, Until Discontinued Given 05/31/2022 9:09 PM EDT 40 mg Given 05/31/2022 5:52 PM EDT 40 mg pantoprazole EC (Protonix) tablet 40 mg Given 06/02/2022 8:11 AM EDT 40 mg 40 mg, Oral, DAILY, First dose on Fri06/01/22 at 1645, Until Discontinued, DO NOT CRUSH OR OPEN, Routine rivaroxaban (Xarelto) tablet 20 mg Given 06/02/2022 11:48 AM EDT 20 mg 20 mg, Oral, DAILY, First dose on Fri06/02/22 at 1115, Until Discontinued, Routine rosuvastatin (Crestor) [...] 811 (Given - Provider: Trinidad Saenz RN) 811 (Given - Provider: Trinidad Saenz RN) 75 mg, Oral, DAILY, First dose on Fri at 2015, Until Discontinued, Routine fluticasone propionate (Flonase) 50 mcg/actuation nasa l spray 1 spray 2108 (Given - Provider: Raven Barbour RN) 09 (Given - Provider: Trinidad Saenz RN) 08 (Given - Provider: Trinidad Saenz RN) 1 spray, Each Nare, DAILY, First dose on Fri05/31/22 at 2015, Until Discontinued, Routine lidocaine (Lidoderm) 5% patch 2 patch(Linked Group 1) 0417 (Patch Applied - Provider: Raven Barbour RN - Comment: Left lower leg (ant and post)) 2 patch, Transdermal, EVERY 24 HOURS, Fi rst dose on 06/02/22 at 0430, Until Discontinued, [...] EVERY 6 HOURS SCHEDULED, First dose on Fri06/01/22 at 0000, Until Discontinued, Please hold for systolic <90 or HR <60, Routine 1728 (Given - Provider: Trinidad Saenz RN) pantoprazole (Protonix) injection 40 mg (CANCELED) 160 5 (MAR Hold - Provider: Admin Adt - Reason: Transfer to a Procedural area)1747 (MAR Unhold - Provider: Admin Adt)1752 (Given - Provider: Angella Floyd RN)210 (Given - Provider: Raven Barbour, DION) 0812 (Given - Provider: Trinidad Saenz RN) 40 mg, Intravenous, 2 TIMES DAILY, First dose on Fri05/31/22 at 1436, Until Discontinued pantoprazole EC (Protonix) tablet 40 mg 1645 (Not Given - Provider: Trinidad Saenz RN - Reason: Contraindicated - Comment: received AM dose this morning IVP) 0811 (Given - Provider: Trinidad Saenz RN) 40 mg, Oral, DAILY, First dose on Fri at 1645, Until Discontinued, DO NOT CRUSH OR OPEN, Routine rivaroxaban (Xarelto) tablet 20 mg 1148 (Given - Provider: Maranda Ribeiro RN) 20 mg, Oral, DAILY, First dose on Fri at 1115, Until Discontinued, Routine rosuvastatin (Crestor) tablet 40 mg 2108 (Given - Provider: Raven Barbour RN) 08 (Given - Provider: Trinidad Saenz RN) 0811 [...] 0.4 mg 1418 (Given - Provider: Trinidad Saenz, DION) 0812 (Given - Provider: Trinidad Saenz RN) 0.4 mg, Oral, DAILY, First dose on Sat at 1400, Until Discontinued, DO NOT CRUSH [...] HOURS PRN, Startin g on Fri05/31/22 at 2013, Until Fri06/02/22 at 1702, Pain, Maximum dose [...] on Fri05/31/22 at 2013, Until Fri06/02/22 at 170, Dry Eyes, Routine heparin (porcine) (1,000 units/mL) injection 0-4,000 Units(Linke d Group 2) 0-4,000 Units, Intravenous, B[facility], Starting on Fri05/31/22 at 2013, Until Fri06/02/22 at 170, Per Protocol, START ADJUSTMENT SCHEDULE 6 HOURS [...] Transdermal, EVERY 24 HOURS, First dose on Fri06/02/22 at 1630, Until Discontinued
Remove lidocaine 5% patch
Group 2: heparin (porcine) 50 units/mL in sodium chloride 0.45% 500 mL infusionJump to med 0-5,000 Units/hr (0-100 mL/hr), Intraven ous, CONTINUOUS, Starting on Fri05/31/22 at 2015, Until Fri06/02/22 at 1702
Begin infusion at 950 units per hr (12 units/kg/hr). Maximum initial infusion rate is 1,000 units/hr. Infusion d oses are rounded to the nearest 50 units. Target Heparin UFH Level (anti-Xa activity) = 0.3 - 0.7 international unit/mL &nbsp ;Start adjustment schedule 6 hours after starting infusion. If Heparin UFH Level is: - Less than 0.1 international unit/mL: Ad card feeder 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 to med 0-4,000 Units, Intravenous, BOLUS PER [facility] PROTOCOL, Starting on Fri05/31/22 at 2014, Until [...]
Routine documented in this encounter Care Teams Pc Network Technician Relationship Specialty Start Date End Date Bobby Das MD PCP - General 10/02/[address] [place] [address] [place] [id number] documented as of this encounter
--- OUTSIDE RECORDS SUMMARY | 2022-06-23 00:17 | XMS_ITS | Encounter Summary ---
:1940 Author Organization [facility] [place] [address] Care Team Providers Name Role Phone Bobby Das MD Primary Care Provider Reason for Visit Auth/Cert Specialty Diagnoses / Procedures Referred By Contact Refer red To Contact Diagnoses GIB (gastrointestinal bleeding) Abe [facility] [place] [address] Referral ID Status Reason Start Date Expiration Date Visits Requ ested Visits Authorized [id number] 1 1 Encounter Details Date Type Department Care Team Description 05/31/2022 Anesthesia Event [place] [facility] [place] Johnson MD [facility] [address] [facility] Yogi Machado CRNA [facility] [place] [address] [place] [address] Anesthesia Record Procedure Summary Procedure Name Responsible Anesthesia Start Anesthesia Stop Time Anesthesiologist Time EGD, UPPER GI Elmer Johnson MD 05/31/22 1603 05/31/22 1657 ENDOSCOPY (N/A Trunk) Events Date Time Event Comment 05/31/2022 1603 AN Verify 1603 Start 1603 An Start Data 1603 Quick Note First unit PRBC infusing when picked up 1608 Anesthesia Ready 1657 an stop data 1657 Recovery or ICU Handoff Patient care was transferred to the destination unit staff after review of the patient's medica l history, current anesthetic/surgi felicitas status and plan, according to the Provider Handoff Checklist. 1657 Stop 06/03/2022 0900 Name Total Propofol 80 mg Propofol INF 254.43 mg Lactated Ringers 300 mL Agents Name O2 Air N2O O2 Auxiliary Flowmeter 1 Blood No blood administrations on file. Lines, Drains, and Airways Type Details Placement Removal Incision 07/20/19; 1020; back; 07/20/19 1020 by laparoscopic puncture; biopsy Fay Martínez RN site Incision 07/20/19; 1034; back; 07/20/19 1034 by laparoscopic puncture; Fay Martínez RN vertbroplasty site Incision 10/25/20; 0912; thoracic 10/25/20 0912 by Alicia spine; non-laparascopic Keisha Gomez RN puncture; vertebroplasty site Incision 05/15/22; 1408; Left; groin 05/15/22 1408 by Jaylene Branch RN Incision 05/15/22; 1526; Left, lateral, 05/15/22 1526 by lisa Herring; leg Jaylene Gomez RN Incision 05/15/22; 1527; Left, medial, 05/15/22 1527 by lisa Garner; leg Jaylene Gomez RN PIV 05/31/22; 1026; median cubital 05/31/22 1026 by 06/02/22 0400 by Km vein (antecubital fossa), Lissette Garcia RN Laura O, RN left; 20 gauge; lumen/catheter not patent, removed per policy/procedure, catheter/device intact; 06/02/22; 0400 PIV 05/31/22; 1300; median cubital 05/31/22 1300 by Mariel, 06/02/22 1345 by vein (antecubital fossa)Angella RN Hunter, Alysia O, RN right; [id number] catheter system; 20 gauge; no longer indicated, removed per physician, catheter/device intact; 06/02/22; 1345 documented in this encounter Social History Tobacco Use Types Packs/Day Years Used Date Former Smoker Cigarettes 0.5 50 Smokeless Tobacco: Never Used Alcohol Use Standard Drinks/Week Comments Yes 42 (1 standard drink = 0.6 oz pure alcoh ol) Sex Assigned at Date Recorded Not on file documented as of this encounter OR Notes Anesthesia Postprocedure Evaluation - Elmer Johnson MD - 06/03/2022 9:11 AM EDT Department of Anesthesiology Post-procedure Note Patient: Koko Zamora Procedure Summary Date: 05/31/22 Room / Location: [facility] ENDO 3 / [facility] ENDOSCOPY Anesthesia Start: 1603 Anesthesia Stop: 1657 Procedures: EGD, UPPER GI ENDOSCOPY (N/A Trunk) EGD, W CONTROL OF BLEEDING, ANY METHOD Diagnosis: (melena) Surgeons: Giovani Ponce MD Responsible Provider: Elmer Johnson MD Anesthesia Type: MAC ASA Status: 3 All Anesthesia Providers: Anesthesiologist: Elmer Johnson MD [employer]: Yogi Dawkins CRNA Vitals Value Taken Time BP 95/62 05/31/22 1720 Temp Pulse Resp 18 05/31/22 1720 SpO2 99 % 05/31/22 1720 Pain Level 0 05/31/22 1720 Patient Location: PACU/[facility] Level of Consciousness: Awake and Alert Pain Management: Satisfactory Analgesia PONV: None Cardiovascular Status: At Baseline and Hemodynamically Stable Respiratory Status: At Baseline and Room Air Postoperative Fluid Status: Intravascular EUvolemia Possible Anesthetic Complications: NONE apparent at time of evaluation Final Primary Anesthesia Type: MAC (The anesthetic type performed was the same as planned.) Comments: Anesthesia Preprocedure Evaluation - Elmer Johnson MD - 06/03/2022 9:09 AM EDT Pre-Anesthesia Evaluation for: Koko Zamora a 81 y.o. male. Procedure(s): EGD, UPPER GI ENDOSCOPY EGD, W CONTROL OF BLEEDING, ANY METHOD Patient Active Problem List Diagnosis Date Noted ??? Limb ischemia 05/15/2022 ??? History of basal cell carcinoma 05/31/2014 ??? Basal cell carcinoma 03/29/2014 ??? Verruca vulgaris 03/29/2014 ??? AK (actinic keratosis) 03/29/2014 ??? GIB (gastrointestinal bleeding) 06/28/2011 ??? MVP (mitral valve prolapse) s/p repair 06/28/2011 ??? Hypertriglyceridemia 06/28/2011 ??? Adhesive capsulitis of L shoulder 06/28/2011 ??? Alcohol use 06/28/2011 No past medical history on file. Past Surgical History: Procedure Laterality Date ??? IR BIOPSY SPINE 07/20/2019 IR Biopsy Spine 07/20/[address] [facility] INTERVENTIONL RAD ??? IR VERTEBROPLASTY LUMBAR MULTIPLE LEVELS 07/20/2019 IR Vertebroplasty Lumbar Multiple Levels 07/20/[address] [facility] INTERVENTIONL RAD ??? IR VERTEBROPLASTY THORACIC SINGLE LEVEL 10/25/2020 IR Vertebroplasty Thoracic Single Level 10/25/[address] [facility] INTERVENTIONL RAD ??? PRO EMBLC/THRMBC FEMORAL POPLITEAL AORTO-ILIAC ARTERY Left 05/15/2022 EMBOLECTOMY OR THROMBECTOMY, FEMOROPOPLITEAL, AORTOILIAC ARTERY BY LEG INCISION (WRVU 19.48) performed by Fito Summers MD at [facility] MAIN OR ??? PRO UPPER GI ENDOSCOPY, CTRL BLEED 05/31/2022 EGD, W CONTROL OF BLEEDING, ANY METHOD performed by Giovani Ponce MD at [facility] ENDOSCOPY ??? PRO UPPER GI ENDOSCOPY, DIAGNOSTIC N/A 05/31/2022 EGD, UPPER GI ENDOSCOPY performed by Giovani Ponce MD at [facility] ENDOSCOPY Social History Tobacco Use ??? Smoking status: Former Smoker Packs/day: 0.50 Years: 50.00 Pack years: 25.00 Types: Cigarettes ??? Smokeless tobacco: Never Used Substance Use Topics ??? Alcohol use: Yes Alcohol/week: 42.0 standard drinks Types: 42 Cans of beer per week Social History Substance and Sexual Activity Drug Use Not Currently Allergies Allergen Reactions ??? Aspirin Other (See Comments) GI bleed Medications: MAR and/or home medications have been reviewed. Physical Exam: Preprocedure Vitals Current as of 05/31/22 1603 BP: 115/48 Pulse: 90 Resp: 14 SpO2: 98 Temp: 36.6 ??C (97.9 ??F) Height: 172.7 cm (5' 8) (05/31/22) Weight: 77.1 kg (170 lb) (05/31/22) BMI: 25.85 IBW: 68.4 kg (150 lb 12.1 oz) Last edited 05/31/22 1545 by GW Currently displaying vitals information from multiple entries within 180 minutes of most recent vitals. Airway Assessment: Mallampati: II TM distance: >3 FB Neck ROM: full Cardiovascular Assessment: Rhythm: irregular Rate: abnormal Pulmonary Assessment: unlabored breathing Dental Assessment: Comment: Poor overall, blackened teeth throughout Misc Assessment: IV access: Peripheral line Last Filed Perioperative Cognitive Screening Value Time User 4AT TOTAL Score: 0 05/19/2022 8:00 AM Caroline Zamora RN Anesthesia Plan: ASA 3 MAC, with a(n) intravenous induction 81yo M w/PMH of remote mitral valve repair (2000), prediabetes, hyperlipidemia, significant alcohol use, and tobacco use who was recently admitted to Vascular Surgery service with acute LLE limb ischemia for which he underwent left femoral cutdown with thromboembolectomy 05/15/22 w/course c/b Afib w/RVR, and HFrEF here with significant drop in hb and GIB. Allergy: -- Aspirin -- Other (See Comments) -- GI bleed Patient Vitals in the past 24 hrs: 06/02/22 1219, BP:96/59, Pulse:(!) 139, Resp:25, SpO2:99 % 06/02/22 1200, BP:102/69, Pulse:(!) 110, Resp:17, SpO2:99 % BP Readings from Last 3 Encounters: 06/02/22 : 96/59 05/31/22 : 99/60 05/21/22 : 108/90 Labs: Lab Results Component Value Date WBC 7.2 06/02/2022 HGB 8.7 (L) 06/02/2022 HCT 25.7 (L) 06/02/2022 MCV 93.8 (H) 06/02/2022 PLATELET 260 06/02/2022 Lab Results Component Value Date NA 142 06/02/2022 K 3.8 06/02/2022 CL 108 (H) 06/02/2022 CO2 24 06/02/2022 BUN 12 06/02/2022 CREATININE 0.71 (L) 06/02/2022 GLUCOSE 151 06/02/2022 GLUCFASTING 152 (H) 05/20/2022 CALCIUM 8.1 (L) 06/02/2022 ESTGFR 93 06/02/2022 Lab Results Component Value Date ALT 44 05/31/2022 AST 24 05/31/2022 ALKPHOS 63 05/31/2022 BILITOT <0.2 (L) 05/31/2022 BILIDIR 0.1 05/31/2022 ALBUMIN 4.1 05/31/2022 PROT 6.4 05/31/2022 Lab Results Component Value Date PT 12.9 (H) 05/15/2022 PTT 76 (H) 05/15/2022 Lab Results Component Value Date TSH 1.67 05/31/2022 No results found for: HA1C Glucose Lvl Date Value Ref Range Status 06/02/2022 151 65 - 199 mg/dL Final Comment: Diabetes: >=200 mg/dL plus symptoms NPO >4 METS No active GERD Plan: MAC with PIV access and standard ASA monitors. The patient was informed of the risks, benefits and alternatives of anesthesia. These risks included, but were not limited to, post-operative nausea and/or vomiting, pain, sore throat, dental/lip trauma, and other rare but serious complications such as major organ damage, awareness, severe allergic reactions, position-related nerve injuries, corneal abrasion/blindness and need blood transfusions. Allquestions were sought and answered. Consent was signed and placed in chart. Region - Other Informed Consent: Anesthetic plan and risks discussed with patient. Plan discussed with [employer] AL[employer]ER. Anesthesia Screening documented in this encounter Plan of Treatment Upcoming Encounters Date Type Specialty Care Team Description 07/02/2022 Office Visit Vascular Surgery Jing Ghosh, PLACEMENT OFFICER [facility] VASCULAR SURGERY [place], [place] [address] (Wo rk) 09/02/2022 Clinical Support Dermatology Thai Lynn MD [facility] DR JENNY BILLY-DERMAT OLOGY [place], [place] [address] (Wo rk) 09/02/2022 Procedure visit Dermatology Jace Lynn MD [facility] DR JENNY BILLY-DERMAT OLOGY [place], [place] [address] (Wo rk) 09/05/2022 Appointment Cardiology Trinity Reid MD [facility] CARDIOLOGY [place], [place] [address] (Wo rk) 09/05/2022 Office Visit Cardiology Trinity Reid MD [facility] CARDIOLOGY [place], [place] [address] (Wo rk) documented as of this encounter Visit Diagnoses Not on filedocumented in this encounter Administered Medications Inactive Administered Medications - up to 3 most recent administrations Medication Order MAR Action Action Date Dose Rate Site lactated ringers infusion New Bag 05/31/2022 4:03 PM EDT Intravenous, CONTINUOUS PRN, Starting on Fri05/31/22 at 1603, Until Fri05/31/22 at 1657, Anesthesia Intra-op propofoL (Diprivan) (10 mg/mL) New Bag 05/31/2022 4:24 PM 100 mcg/kg/min 46.26 mL/hr infusion EDT Intravenous, CONTINUOUS PRN, Starting on Fri05/31/22 at 1624, Until Fri05/31/22 at 1657, Anesthesia Intra-op, Routine propofoL (Diprivan) 10 mg/mL bolus injection Given 4:28 PM EDT 30 mg (Anesthesia) Intravenous, PRN, Starting on Fri05/31/22 at 1624, Until Fri05/31/22 at 1657, Anesthesia Intra-op Given 05/31/2022 4:26 PM EDT 20 mg Given 05/31/2022 4:24 PM EDT 30 mg documented in this encounter Care Teams Lining Stuffer Relationship Specialty Start Date End Date Bobby Das MD PCP - General 10/02/[address] [place] [address] [place] [address] documented as of this encounter
--- OUTSIDE RECORDS SUMMARY | 2022-06-23 00:18 | XMS_ITS | Encounter Summary ---
:1940 Author Organization [facility] [place] [address] Care Team Providers Name Role Phone Bobby Das MD Primary Care Provider Reason for Referral Consultation (Routine) - Authorized Specialty Diagnoses / Procedures Referred By Contact Refer red To Contact Diagnoses Non-ST elevation myocardial infarction (NSTEMI) Limb ischemia Nasrin Parra PA [facility] Tobacco Treatment [facility] [place] [address] [place] [address] Referral ID Status Reason Start Date Expiration Visits Visits Date Requested Authorized [id number] Authorized Consult, 05/21/2022 05/21/2023 1 1 Test & Treat iagnostic Test (Routine) - Closed Specialty Diagnoses / Procedures Referred By Contact Refer red To Contact Cardiology Diagnoses Paroxysmal atrial fibrillation Nasrin Parra PA [facility] Non-Inv Card Lab Procedures Ziopatch 48 Hrs-15 Days [facility] [place] [address] [place] [address] Fax: Referral ID Status Reason Start Date Expiration Date Visits V isits Requested Authorized [id number] Closed Specialty 05/21/2022 10/21/2022 1 1 Service Requested Consultation (Routine) - Closed Specialty Diagnoses / Procedures Referred By Contact Refer red To Contact Cardiology Diagnoses HFrEF (heart failure with reduced ejection fraction) Paroxysmal atrial fibrillation Post-hospital follow-up, s/p PCI with stenting, heart failure Nasrin Parra PA [facility] Cardiology 4a [facility] D R [facility] [place] [address] [place] [address] Referral ID Status Reason Start Date Expiration Date Visits V isits Requested Authorized [id number] Closed Consult, 05/21/2022 05/21/2023 1 1 Test & Treat iagnostic Test (Routine) - Authorized Specialty Diagnoses / Procedures Referred By Contact Refer red To Contact Diagnoses Limb ischemia Nasrin Parra PA [facility] Vascular Lab 3v Procedures JOSSELYN, legs, multiple levels [facility] [place] [address] [place] [address] Referral ID Status Reason Start Expiration Visits Visits Date Date Requested Authorized [id number] Authorized Specialty 05/21/2022 05/21/2023 1 1 Service Requested [facility] Health Care (Routine) - Authorized Specialty Diagnoses / Procedures Referred By Contact Refer red To Contact Diagnoses Limb ischemia Fito Summers MD [facility], [facility] VASCULAR SURGERY [address] [place] [address] [address] Fax: Referral ID Status Reason Start Date Expiration Visits Visits Date Requested Authorized [id number] Authorized Consult, 05/21/2022 11/17/2022 999 999 Test & Treat Reason for Visit Reason Comments Left Leg Pain Auth/Cert Specialty Diagnoses / Procedures Referred By Contact Refer red To Contact Diagnoses Limb ischemia LLE thrombus Fito Summers MD [facility] D R [place] [address] Referral ID Status Reason Start Date Expiration Date Visits Requ ested Visits Authorized [id number] 1 1 Encounter Details Date Type Department Care Team Description 05/15/2022 - Hospital Intermediate Cardiac Ravi Summers MD [facility] [place] [address] Atrial fibrillation, unspecified type; 05/21/2022 Encounter Care Unit Wellington Gerard MD [facility] [place] [address] Non-ST elevation myocardial infarction ( NSTEMI); [facility] Limb isch emia; [facility] HFrEF (heart failure with re duced ejection fraction); [facility] [place] [id number] Social History Tobacco Use Types Packs/Day Years Used Date Current Some Day Smoker Cigarettes 0.5 50 Smokeless Tobacco: Never Used Alcohol Use Standard Drinks/Week Comments Yes 42 (1 standard drink = 0.6 oz pure alcoh ol) Sex Assigned at Date Recorded Not on file documented as of this encounter Last Filed Vital Signs Vital Sign Reading Time Taken Comments Blood Pressure 108/90 05/21/2022 11:24 AM EDT Pulse 97 05/21/2022 11:24 AM EDT Temperature 36.9 ??C (98.4 ??F) 05/21/2022 11:24 AM EDT Respiratory Rate 17 05/21/2022 11:24 AM EDT Oxygen Saturation 95% 05/21/2022 11:24 AM EDT Inhaled Oxygen Concentration - - Weight 79.4 kg (175 lb) 05/21/2022 9:00 AM EDT Height 172 cm (5' 7.72) 05/15/2022 6:00 PM EDT Body Mass Index 26.83 05/15/2022 6:00 PM EDT documented in this encounter Discharge Summaries Nasrin Parra PA - 05/21/2022 2:34 PM EDT Inpatient - Discharge Summary Patient Name: Koko Zamora Patient Age: 81 y.o. Birthdate: 1940 Admit date: 05/15/2022 Discharge date and time: 05/21/2022 Attending Physician: Fito Summers MD Discharging Provider: JOSEE Santiago Discharging Service: Vascular Surgery Operations/Major Procedures: 05/15/2022: Left common femoral transverse arteriotomy and primary repair; Thromboembolectomy of theSFA, profunda, and common femoral artery; Reperfusion venous drainage of 250cc; Left lower extremity4 compartment fasciotomies. 05/20/2022: Coronary angiography, L heart catheterization, coronary ultrasound, coronary angioplastymid LCX lesion, coronary stent insertion of ostial OM1 lesion. (Interventional cardiology). Active Hospital Problems: Active Hospital Problems Diagnosis ??? Limb ischemia Resolved Hospital Problems No resolved problems to display. Active Non Hospital Problems: Active Non-Hospital Problems Diagnosis ??? History of basal cell carcinoma ??? Basal cell carcinoma ??? Verruca vulgaris ??? AK (actinic keratosis) ??? GIB (gastrointestinal bleeding) ??? MVP (mitral valve prolapse) s/p repair ??? Hypertriglyceridemia ??? Adhesive capsulitis of L shoulder ??? Alcohol use History of Presentation: Koko Zamora is a 81M w new onset Afib who presents in transfer from [facility] with acute limb ischemia of the LLE. The patient had sudden pain starting at 630 this morning he presented [facility] where he was placed on heparin. He describes waxing and waning motor and sensory symptoms however he feels like he had been sensory deficits which have slightly improved. He now reports diminished but present sensation. He has decreased motor sensation. ?? He is a smoker of 1/2 pack/day, with no home oxygen or known COPD. He is a prediabetic without any medications. He does report a history of arm ischemia in which his arm turned blue after a cardiac procedure for mitral valve replacement a number of years ago. At that time he underwent a surgery, during which thrombus was removed from the arm. His arm has baseline functioning. He has no history of bleeding, he does not take any blood thinners. He has not eaten since yesterday. Hospital Course: On 05/15/22, patient was admitted to the vascular surgery service with ALI and emergently went to the OR for L [employer] transverse arteriotomy and primary repair, thromboembolectomy of L SFA/PFA/[employer], reperfusion venous drainage for 250 cc, and [...] mus zully.??He was re-admitted for post-operative monitoring. Fasciotomy sites closed on POD 2 at [...] follow-up in cardiology clinic in 1 month. Prevena wound vac removed POD 5 and L groin incision clean and dry without signs of infection. Patient worked with PT who recommend discharge to home with home health. Patient's recovery with good PO intake, adequate output following cooper removal, and pain well controlled on PO meds. Patient deemed medically ready for discharge on 05/21/22, will follow up in 2 weeks for a wound check and again in 1 month with ABIs. Day of Discharge Physical Exam: BP 108/90 (BP Location (NBP): Left arm, Patient Position: Sitting) Pulse 97 Temp 36.9 ??C (98.4 ??F) (Oral) Resp 17 Ht 172 cm (5' 7.72) Wt 79.4 kg (175 lb) SpO2 95% BMI 26.83 kg/m?? GEN: Alert and cooperative. In NAD. HEENT: Normocephalic and atraumatic. Neck: Supple, symmetric, trachea midline. CV: Regular rate. Pulm: No evidence of increased work of breathing. Abd: Soft, non-distended, non-tender to palpation. . Neuro: No focal deficits, gross sensory or motor abnormalities. Extremities: L calf fasciotomy incision sites and L groin incision site c/d/i - no surrounding erythema or drainage. Palpable L DP pulse. R wrist access site c/d/i - no surrounding erythema or hematoma. BLE warm and pink. Important Studies and Lab Data: TTE 05/16/22: Interpretation Summary Left ventricle is mildly dilated. Left ventricular [...] moderate and LV systolic dysfunction are new. Labs: Recent Results (from the past 24 hour(s)) POCT Glucose Result Value Ref Range POC Glucose 123 65 - 199 mg/dL Hemogram Result Value Ref Range WBC 6.8 4.0 - 9.5 x10(3)/mcL RBC 3.59 (L) 4.58 - 5.54 x10(6)/mcL Hemoglobin 11.8 (L) 13.7 - 16.5 g/dL Hematocrit 34.5 (L) 40.5 - 48.5 % MCV 96.1 (H) 82.9 - 93.1 fL MCH 32.9 (H) 27.5 - 32.1 pg MCHC 34.2 32.0 - 35.7 g/dL Platelets 198 145 - 357 x10(3)/mcL RDWSD 44.9 36.0 - 45.0 fL RDWCV 12.6 11.4 - 13.8 % MPV 10.0 7.6 - 12.9 fL nRBC % Auto 0.3 % nRBC Abs Auto 0.020 (H) 0.000 - 0.000 x10(3)/mcL Differential, Automated Result Value Ref Range Neutrophils % 58.8 % Neutr Abs (ANC) 3.97 1.70 - 6.10 x10(3)/mcL Lymphocytes % 25.2 % Lymphocytes Abs 1.7 0.9 - 3.2 x10(3)/mcL Monocytes % 12.9 % Monocyte Abs 0.9 0.3 - 0.9 x10(3)/mcL Eosinophils % 2.1 % Eosinophils Abs 0.1 0.0 - 0.4 x10(3)/mcL Basophils % 0.4 % Basophils Abs 0.0 0.0 - 0.1 x10(3)/mcL Immature Gran % 0.60 % Rain Gran Abs 0.04 0.00 - 0.04 x10(3)/mcL Heparin (unfractionated) Level Result Value Ref Range Heparin UFH Level 0.42 IU/mL Discharge Condition: Good Discharge to: Home with [address] [address] Future Appointments and Orders Future Appointments and Orders Future Appointments Provider Department Dept Phone 05/23/2022 10:30 AM Loretta Cohen MD Dermatology at [facility] Arrive at: [employer] [address] [place] [address] 06/07/2022 1:30 PM Gail Rae APRN Vascular Surgery at [facility] Arrive at: [facility] [facility] Area [phone] 06/13/2022 7:30 AM Edson Lagos [place] Vascular Lab at [facility] Arrive at: [facility] [employer] [facility] Area [phone] 06/13/2022 8:00 AM Fito Summers MD Vascular Surgery at [facility] Arrive at: [facility] [employer] [facility] Area [phone] 06/13/2022 10:00 AM Alan Reid MD Cardiology at [facility] Arrive at: [facility] [employer] Area [phone] Future Orders Complete By Expires Demetriusopatch 48 Hrs-15 Days [[id number] CPT(R)] 05/21/2022 11/20/2022 Process Instructions: Scheduling Instructions: Comments: Questions: Does the patient have a pacemaker? If yes provide HI/LO settings: Apply for 7 or 14 days?: 7 Where will study be performed?: [facility] JOSSELYN, legs, multiple levels [VAS8 Custom] 06/21/2022 (Approximate) 12/21/2022 Process Instructions: There is no in-house vascular animal laboratory helper available on weeknights (5pm-8am), weekends, or holidays. IF THIS IS A REQUEST FOR AN EMERGENT STUDY DURING THOSE HOURS, please have the senior provider responsible for the patient page the Vascular Surgery Fellow/Senior Resident vice president investor relations to discuss options. Scheduling Instructions: Questions: Indication for study/signs & symptoms: ALI s/p L fem cutdown with thromboembolectomy Question to be answered: Perfusion to feet? Please check toe pressure Preferred location?: [facility] Referral to Cardiology [REF12 Custom] As directed Process Instructions: If no progress note charted, please enter Clinical details in comments. Scheduling Instructions: Questions: My question or request is: Post-hospital follow-up, s/p PCI with stenting, heart failure Referral to Home Health [REF34 Custom] As directed Process Instructions: If no progress note charted, please enter Clinical details in comments. Scheduling Instructions: Comments: Please evaluate Koko Zamora for admission to Home Health. [address] [facility] [place][note 2] [phone] (home) Date of : 1940 Inpatient DOCUMENTATION FOR VNA SERVICES (INCLUDING THOSE PATIENTS WITH MEDICARE COVERAGE REQUIRING HOME VNA SERVICES AND/OR HOSPICE SERVICES) PATIENT'S LOCATION: Koko Zamora [address] [facility] [place][note 2] [phone] (home) Cell: No relevant phone numbers on file. [employer] Supervisor's Name: Koko In discussion with the attending physician, it is certified that this patient is under their care and that they, or a Nurse Practitioner,Clinical Nurse specialist or Physician Wet Pan Operator who is working directly with them, had a face to face encounter that meets the physician face to face encounter requirements with this patient on 05/21/2022 (MD please enter DC date here) The encounter with the patient was in whole, or in part, for the following medical condition, which is the primary reason for home health care services: Inability to leave home due to recent major surgical intervention, post-op deconditioning In discussion with the provider, it is certified that, based on their findings, the following services are medically necessary for home health services. To provide the following care/treatments with the clinical findings supporting the need for servicesas follows: HOME CARE ORDERS: RN ORDERS:Assess wound or incision, vital signs, cardiopulmonary status, nutrition, hydration, elimination, meds effectiveness and management; reinforce education re health issues PT ORDERS: Continue rehab for endurance, gait stability and strength with mobility and transfers. Home safety evaluation. Home exercise program if appropriate. OT: assess and continue rehab for managing ADL's. HOME HEALTH CARE AGENCY: [facility] [address] [place] [id number] Start of care: Within 24 to 48 hours of discharge FOR MEDICARE ONLY: (please delete this section if not Medicare) In discussion with the attending physician, it is certified that the clinical findings support that this patient is homebound because absences from home require considerable and taxing effort due to: Unsteady Gait, poor balance, requiring assistive devices and/or assistance of another Please note that any additional orders needs or changes will need to be obtained from this patient'sPCP: Bobby Das MD [address] [place] [phone] All A agencies which cover the area of patient's residence have been reviewed, either verbally or in writing, and patient/family have chosen the home health care agency noted Questions: Disciplines Requested: Nursing Physical Therapy Occupational Therapy Anticoagulation & Antiplatelet: Anticoagulation: Agent: Xarelto 20 mg daily Indication: A Fib, hx arterial thrombosis Intended Duration: Indefinitely Antiplatelet: Agent: Plavix 75 mg daily Indication: PCI with stenting Intended Duration: 1 year Agent: ASA 81 mg daily Indication: Arterial disease Intended Duration: 1 month For questions regarding these medications, please contact: Vascular surgery, cardiology Discharge Medications: Your Medications New Medications Dose Details acetaminophen 325 mg Tab Commonly known as: Tylenol Take 2 tablets by mouth every 6 hours as needed for Pain. 650 mg Quantity: 30 tablet Refills: 1 aspirin EC 81 mg Tbec Take 1 tablet by mouth daily for 30 days. Start taking on: May 22, 2022 81 mg Quantity: 30 tablet Refills: 0 clopidogreL 75 mg Tab Commonly known as: Plavix Take 1 tablet by mouth daily. Start taking on: May 22, 2022 75 mg Quantity: 90 tablet Refills: 3 dapagliflozin 5 mg Tab Commonly known as: Farxiga Take 1 tablet by mouth daily. 5 mg Quantity: 30 tablet Refills: 0 metoprolol succinate XL 50 mg Tablet sr Commonly known as: Toprol-XL Take 1 tablet by mouth daily. 50 mg Quantity: 30 tablet Refills: 12 pantoprazole EC 40 mg Tbec Commonly known as: Protonix Take 1 tablet by mouth daily. Start taking on: May 22, 2022 40 mg Quantity: 90 tablet Refills: 3 rivaroxaban 20 mg Tab Commonly known as: Xarelto Take 1 tablet by mouth daily. 20 mg Quantity: 30 tablet Refills: 11 valsartan 40 mg Tab Commonly known as: Diovan Take 1 tablet by mouth 2 times daily. 40 mg Quantity: 60 tablet Refills: 1 Continued medications, unchanged Dose Details ascorbic acid (vitamin C) 1,000 mg Tab Commonly known as: VITAMIN C daily. Refills: 0 calcium citrate 200 mg (950 mg) Tab Commonly known as: Calcitrate Take 1 tablet by mouth daily. 1 tablet Refills: 0 carboxymethylcellulose 0.5 % Dpet Commonly known as: Refresh Plus Apply to eye 3 times daily as needed. Refills: 0 Crestor 40 mg Tab Take 40 mg by mouth daily. Generic drug: rosuvastatin 40 mg Refills: 0 fluorouraciL 5 % Crea Commonly known as: EFUDEX daily. Refills: 0 fluticasone propionate 50 mcg/actuation Spsn Commonly known as: Flonase as needed. Refills: 0 MULTIPLE VITAMIN ORAL Take 1 tablet by mouth daily. 1 tablet Refills: 0 tamsulosin 0.4 mg Cap Commonly known as: Flomax Take 0.4 mg by mouth daily. 0.4 mg Refills: 0 Viagra 100 mg Tab Take 100 mg by mouth as needed for Erectile Dysfunction. Generic drug: sildenafiL 100 mg Refills: 0 STOPPED Medications ibuprofen 200 mg Tab Commonly known as: Advil Updated Allergies/ADRs: Allergies Allergen Reactions ??? Aspirin Other (See Comments) GI bleed Follow-up Recommendations for Providers: Follow-up in vascular surgery clinic in 2 weeks for a wound check and in 1 month with ABIs. Follow-up in cardiology clinic in 1 month. Instructions Given to Patient at Discharge: Patient Instructions Patient Instructions You were admitted after undergoing thromboembolectomy (removal of clot) and 4 compartment fasciotomyto get more blood flow to your leg. All of this went very well. Dr. Summers will want you to be seenin approximately two weeks for a wound check and in one month with vascular studies. All of this will be ordered and sent to you in the mail. If for some reason you don't receive this within a week or so please call our office as your follow-up is very important. Anticoagulation: Start Xarelto 20 mg daily to prevent further blood clots from your A Fib. Antiplatelet: Continue Plavix 75 mg daily. Continue aspirin 81 mg daily for 1 month following your procedure. Follow-up in Cardiology clinic in 1 month for further management of your heart disease and blood pressure. You were started on several new medications for heart failure and to control your blood pressure and heart rate. Please call and ask to speak with the cardiology clinic if you do not hear regarding this appointment within 2 weeks of discharge. Call your doctor if: Any fever, any drainage, redness or separation of your incision, increased painor change in temperature of your leg or around your incision Activity level: Up as tolerated but watch for swelling of your leg. Manage this with leg elevation, toes higher than your nose and also can use acewrapping from your foot to below knee, tape in place, rewrap as necessary. Diet: Resume your previous regular diet. Prescription pain medications can cause severe constipation. Take over the counter stool softeners and laxatives (senna, colace, mirilax, etc.) as needed to ensure one bowel movement per day. Driving: No driving while taking prescription pain medications. Shower/Bath: You may take a shower, in fact, you should shower daily. This is very important for healthy wound healing. Re-dress your incisions afterward with dry gauze as needed to keep them clean anddry. Do not soak or submerge your incision until cleared to do so at a follow up appointment. Wound Care: Re-dress with dry gauze daily as needed to keep the area clean and dry. For any problems or questions please call [phone] For issues on weeknights after 5pm and weekends please call [phone] and ask for the Vascular Fellow vice president investor relations. JOSEE Santiago Vascular Surgery 05/21/2022 documented in this encounter Discharge Instructions Patient InstructionsNasrin Parra PA - 05/20/2022 1:17 PM EDT Patient Instructions You were admitted after undergoing thromboembolectomy (removal of clot) and 4 compartment fasciotomyto get more blood flow to your leg. All of this went very well. Dr. Summers will want you to be seenin approximately two weeks for a wound check and in one month with vascular studies. All of this will be ordered and sent to you in the mail. If for some reason you don't receive this within a week or so please call our office as your follow-up is very important. Anticoagulation: Start Xarelto 20 mg daily to prevent further blood clots from your A Fib. Antiplatelet: Continue Plavix 75 mg daily. Continue aspirin 81 mg daily for 1 month following your procedure. Follow-up in Cardiology clinic in 1 month for further management of your heart disease and blood pressure. You were started on several new medications for heart failure and to control your blood pressure and heart rate. Please call and ask to speak with the cardiology clinic if you do not hear regarding this appointment within 2 weeks of discharge. Call your doctor if: Any fever, any drainage, redness or separation of your incision, increased painor change in temperature of your leg or around your incision Activity level: Up as tolerated but watch for swelling of your leg. Manage this with leg elevation, toes higher than your nose and also can use acewrapping from your foot to below knee, tape in place, rewrap as necessary. Diet: Resume your previous regular diet. Prescription pain medications can cause severe constipation. Take over the counter stool softeners and laxatives (senna, colace, mirilax, etc.) as needed to ensure one bowel movement per day. Driving: No driving while taking prescription pain medications. Shower/Bath: You may take a shower, in fact, you should shower daily. This is very important for healthy wound healing. Re-dress your incisions afterward with dry gauze as needed to keep them clean anddry. Do not soak or submerge your incision until cleared to do so at a follow up appointment. Wound Care: Re-dress with dry gauze daily as needed to keep the area clean and dry. For any problems or questions please call [phone] For issues on weeknights after 5pm and weekends please call [phone] and ask for the Vascular Fellow vice president investor relations. documented in this encounter Medications at Time [...] 04/12/20 21 (FLONASE) 50 mcg/actuation Nare route O'Brien, Suspension daily as needed. fluorouraciL (EFUDEX) 5 [...] documented as of this encounter Progress Notes Nasrin Parra PA - 05/21/2022 12:41 PM EDT Vascular Surgery Progress Note Koko Zamora is a 81 y.o. male with w new onset Afib who presents in transfer from [facility] with acute limb ischemia of the LLE. ?? The patient had sudden pain starting at 630 05/15/22, he presented [facility] where he was placed on heparin. He describes waxing and waning motor and sensory symptoms however he feels like he had been sensory deficits which have slightly improved. He now reports diminished but present sensation. He has decreased motor sensation. ?? He is a smoker of 1/2 pack/day, with no home oxygen or known COPD. ?? He is a prediabetic without any medications. He does report a history of arm ischemia in which his arm turned blue after a cardiac procedure for mitral valve replacement a number of years ago. At that time he underwent a surgery, during which thrombus was removed from the arm. His arm has baseline fu nctioning. Active Hospital Problems Diagnosis ??? Limb ischemia Resolved Hospital Problems No resolved problems to display. Active Non-Hospital Problems Diagnosis ??? History of basal cell carcinoma ??? Basal cell carcinoma ??? Verruca vulgaris ??? AK (actinic keratosis) ??? GIB (gastrointestinal bleeding) ??? MVP (mitral valve prolapse) s/p repair ??? Hypertriglyceridemia ??? Adhesive capsulitis of L shoulder ??? Alcohol use Scheduled Medications: ??? metoproloL tartrate 12.5 mg Oral Q6H BINDU ??? aspirin EC 81 mg Oral Daily ??? clopidogreL 75 mg Oral Daily ??? valsartan 40 mg Oral BID ??? polyethylene glycoL (MIRALAX) oral powder 17 g Oral BID ??? rosuvastatin 40 mg Oral QPM ??? tamsulosin 0.4 mg Oral Daily ??? sodium chloride 0.9 % (flush) 5 mL Intravenous BID ??? thiamine 100 mg Oral Daily ??? folic acid 1,000 mcg Oral Daily ??? multivitamin with minerals 1 tablet Oral Daily Operations/Procedures This Hospitalization: 05/15/2022: Left common femoral transverse arteriotomy and primary repair; Thromboembolectomy of theSFA, profunda, and common femoral artery; Reperfusion venous drainage of 250cc; Left lower extremity4 compartment fasciotomies. 05/20/2022: Coronary angiography, L heart catheterization, coronary ultrasound, coronary angioplastymid LCX lesion, coronary stent insertion of ostial OM1 lesion. (Interventional cardiology) 24 hr event/Subjective: Cardiac cath by interventional cardiology yesterday. No acute events overnight, remains afebrile and HDS. No complaint of chest pain or dyspnea this morning, patient is anxious to leave. Pain is controlled at present. Objective: Temp: [36.6 ??C (97.9 ??F)-37.4 ??C (99.3 ??F)] Heart Rate: [59-117] Resp: [15-25] BP: (90-109)/(63-90) SpO2: [90 %-96 %] Heart Rate from SpO2: [54 bpm-104 bpm] BMI: Weight: 79.4 kg (175 lb) (05/21/22 0900) BMI (Calculated): 26.97 BMI Classification: Over Weight Intake/Output Summary (Last 24 hours) at 05/21/2022 1241 Last data filed at 05/21/2022 1200 Gross per 24 hour Intake 1384.9 ml Output 1950 ml Net -565.1 ml PHYSICAL EXAM: GEN: Alert and cooperative. In NAD. HEENT: Normocephalic and atraumatic. Neck: Supple, symmetric, trachea midline. CV: Regular rate. Pulm: No evidence of increased work of breathing. Abd: Soft, non-distended, non-tender to palpation. . Neuro: No focal deficits, gross sensory or motor abnormalities. Extremities: L calf fasciotomy incision sites and L groin incision site c/d/i - no surrounding erythema or drainage. Palpable L DP pulse. R wrist access site c/d/i - no surrounding erythema or hematoma. BLE warm and pink. Labs: Recent Labs 05/21/22 0615 05/20/22 0502 05/19/22 0326 WBC 6.8 7.8 7.4 HGB 11.8* 11.4* 12.1* HCT 34.5* 34.3* 36.4* PLATELET 198 181 168 Recent Labs 05/20/22 1050 NA 137 K 3.6 CL 103 CO2 24 BUN 11 CREATININE 0.63* CALCIUM 8.7 New Studies: TTE 05/16/22: Interpretation Summary Left ventricle is mildly dilated. Left ventricular [...] moderate and LV systolic dysfunction are new. Assessment & Plan: Koko Zamora is a 81 y.o. male admitted with LLE ALI s/p L femoral cutdown with LLE thromboembolectomy and 4 compartment fasciotomies on 05/15/22. He has a history of prior RUE ALI after a prior cardiac procedure years ago. He is now s/p PCI with stenting of ostial OM1 lesion on 05/20/22. Will follow-up with cardiology for any additional recommendations today including antiplatelet/anticoagulation regimen: - Cardiology consult, appreciate input. Oral metoprolol tartrate increased to 12.5 mg Q6 hours, valsartan continued. - Carb control diet. - OOB, PT. - Therapeutic heparin gtt. Plan to discharge on Xarelto. - ASA, Plavix, statin. Dispo: Floor status, full code. JOSEE Santiago 05/21/2022 Pager: [phone] Brannon Isaacs, PT - 05/21/2022 10:35 AM EDT Physical Therapy Note Treatment Number PT: 2 Patient profile: Koko Zamora is a 81 y.o. male admitted on 05/15/[address] Fito Summers MD. Per MD notes, pt is 81 y.o.??male??3 Days Post-Op??Left femoral cutdown with thromboembolectomy with 4 compartment fasciotomies for acute limb ischemia. He has a history of prior RUE ALI after a prior cardiac procedure years ago. He has been recovering well and fasciotomy sites will be closed todayFaciotomies closed prior to PT visit. Cardiology consulted, per note, newly discovered atrial fibrillation and TTE showing new LV dysfunction (LVEF 28%) and moderate and pt is waiting for cath to evaluate. ?? Interval Hx: Had cardiac cath 05/20 revealed 2vessel CAD, one stent one angio. Cardiology following. Social History: Pt lives with his , both are independent at baseline. He does have a walker from a prior time ofneeding it. His can help out as needed. He has several steps w/rail to access his home then allneeds on one floor. ?? Precautions/Special Considerations: L groin incision, Afib on tele, fall risk Mobility and Positioning Recommendations: ?? Pt is capable of indep amb using a FWW. Pt should ambulate with this assist several times a day to promote optimal functional abilities while here. ?? Please encourage up to chair for meal times as able. Subjective: I want to go home today Objective: Patient seen for physical therapy and demonstrated the following: Pain: minimal groin pain Vital Signs:HR 120s to 158, sats WNL Cognition: intact Bed Mobility: Supine to Sit: indep ,bed flat Sit to Supine: indep, bed flat Transfers: Sit to Stand: indep Stand to Sit: indep Gait: Distance: 150 feet Device used: FWW Level of assist: indep Able to walk in room short distances without walker steadily Stairs: up/down four steps using w/supervision, capable of doing so indep Balance: Sitting Static: good Sitting Dynamic: good Standing Static: good Standing Dynamic / Gait: good Education: role of PT, dispo planning, use of walker, stairs Assessment: Koko Zamora was seen today for physical therapy treatment session for continuationof POC. Tolerated PT well. Is mobilizing much better, only notable response is tachycardic HR. From PT perspective, okay for home D/C with family assist, use of FWW and home PT. Discharge Recommendations: Based on the current findings, Anticipated Discharge Disposition (PT): home with home health, home with supervision when medically ready for hospital discharge. Consult Recommendations: No other consults recommended at this time. Equipment needs: Anticipated Equipment Needs at Discharge (PT): None Goals: To be achieved by 05/22/22: 1. Pt. to perform bed mobility independently, bed flat 2. Pt. to perform all transfers independently using a front wheeled walker. 3. Pt. to ambulate 150 feet independently using a a front wheeled walker. 4. Pt. to negotiate 5-6 step/stairs using one rail with supervision. ?? Plan: Therapy Frequency (PT): Monitor for therapy interventions as outlined in initial evaluation. Patient agrees with plan as stated. Time IN / OUT: 9373-9840 Total Minutes, Physical Therapy: 25 Billing Code: 2 BOSTON Isaacs DPT Pager: [phone] Physical Therapy Inpatient Rehabilitation Department Wellington Jean MD - 05/21/2022 10:16 AM EDT Images from the original note were not included. Brief Cardiology Consult: Koko Zamora is a 81 y.o. gentleman with a history of remote mitral valve repair (2000), prediabetes, hyperlipidemia, significant alcohol use, and tobacco use who is admitted to the Vascular Surgery service with acute LLE limb ischemia for which he underwent left femoral cutdown with thromboembolectomy 05/15/22. His course has been complicated by new onset atrial fibrillation with rapid ventricular response, moderate aortic stenosis & HFrEF for which Cardiology is consulted. Interval events: - Cath yesterday with 2V disease (ostial OM1 & distal RCA) - S/p angioplasty of a mid LCx lesion & stenting of the ostial OM1 lesion Objective Last value Range last 8 hrs Temperature Temp: 37 ??C (98.6 ??F) Temp: [36.9 ??C (98.4 ??F)-37 ??C (98.6 ??F)] Heart Rate Heart Rate: (!) 107 Heart Rate: [107] Blood Pressure BP: 95/63 BP: (90-95)/(63-66) Respiratory Rate Resp: 18 Resp: [16-18] SpO2 SpO2: 95 % SpO2: [92 %-95 %] Intake/Output Summary (Last 24 hours) at 05/21/2022 1016 Last data filed at 05/21/2022 0800 Gross per 24 hour Intake 1384.9 ml Output 2075 ml Net -690.1 ml Wt & BMI By Encounter Date Flowsheet Row ED to Hosp-Admission (Current) from 05/15/2022 in Intermediate Cardiac Care Unit [facility] Office Visit from 04/17/2021 in [facility] [place] [facility] [place] Weight 79.8 kg (175 lb 14.8 oz) 1 05/15/2022 1800 83.5 kg (184 lb) 1 04/17/2021 1450 BMI 26.97 1 05/15/2022 1800 -- Physical exam General: Pleasant, AO3, in no acute distress Cardiovascular: Regular rate, irregular rhythm, normal S1/2, no obvious murmurs, rubs, or gallops Pulmonary: Good inspiratory effort, clear to auscultation bilaterally without adventitious lung sounds Extremities: Nonedematous, intact DP pulses, L femoral artery Recent Labs 05/21/22 0615 05/20/22 0502 05/19/22 0326 WBC 6.8 7.8 7.4 HGB 11.8* 11.4* 12.1* HCT 34.5* 34.3* 36.4* PLATELET 198 181 168 Recent Labs 05/20/22 1050 05/17/22 0333 05/16/22 0301 NA 137 137 138 K 3.6 3.5 4.5 CL 103 102 108* CO2 24 25 22 BUN 11 12 12 CREATININE 0.63* 0.74* 0.66* Last 3 LFTs No results for input(s): AST, ALT, ALKPHOS, BILITOT, BILIDIR in the last 7068 hours. Last Ca, Mg, Phos Recent Labs 05/20/22 1050 05/17/22 0333 05/16/22 0301 CALCIUM 8.7 8.4* 8.2* PHOS -- -- 3.7 MAGNESIUM -- 0.76 0.77 Recent Labs 05/15/22 1230 PT 12.9* INR 1.1 PTT 76* Recent Labs 05/15/22 1200 CK 87 Relevant Cardiovascular Imaging: TTE 05/16/22 Interpretation Summary Left ventricle is mildly dilated. Left ventricular [...] moderate and LV systolic dysfunction are new. Assessment & Plan Koko Zamora is a 81 y.o. gentleman with above past medical history admitted with acute LLE ischemia. Cardiac catheterization notable for 2V CAD (ostial OM1 & distal RCA). He is status-post angioplasty of a mid LCx lesion & stenting of the ostial OM1 lesion 05/20. May plan for staged PCI pendingclinical course. Based on shared decision making with the patient, he prefers to defer that intervention to the outpatient setting as he does not endorse significant angina at this time. Unclear at this time whether or not these lesions can account for the severity of his cardiomyopathy. Reasonable to continue evaluation for alternative/nonsichemic causes. To date, TSH is normal. Patient has newly diagnosed AF here. He is essentially asymptomatic from this so certainly possible that he could have had rapidly conducted AF as an outpatient which could have led to a tachymyopathy. Otherconsiderations include alcohl related cardiomyopathy. Certainly warrants consideration of nonsichemic work-up (labs +/- cardiac MRI), potentially as an outpatient. Discussed his femoral artery thrombus with our Vascular specialist today, who agrees this was likelya cardioembolic phenomenon. #ASCVD - Plan for one month of triple therapy with aspirin, plavix & DOAC (defer to Vascular Surgery regarding which is covered by insurance; preference for apixaban) - Continue rosuvastatin - Strict return precautions for #Atrial fibrillation - DOAC - Please discharge on metoprolol succinate 50 mg QD - Zio at discharge #Heart failure with reduced ejection fraction, systolic, unclear chronicity - S/p cardiac catheterization with PCI to the ostial OM1 05/20 - Agree with beta-norma (as above) - Agree with valsartan 40 mg QD at discharge - Relative hypotension likely precludes addition of spironolactone, would consider addition of this as an outpatient - Consider an SGLT2 at discharge pending Vascular input for amputation risk - Alcohol cessation counseling Please refer for Cardiology follow-up one month after discharge. Patient should also establish with outpatient Cardiac Rehab. Thank you for this interesting Consult. Case discussed with Dr Jean. We will Ted to follow. Please page with any further questions or concerns. Kerry Mcnamara MD Cardiovascular Medicine PGY-5 05/21/2022 Cardiology Staff - Consult Note Addednum / Progress Note This patient was seen and examined on rounds with the cardiology consult team. I agree with the findings and plan of care per Dr. Mcnamara (dental technology advisor). Please refer to her note above for details. 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 Lcx PCI only at this time. Unlikely that the CAD is responsible for the low EF. 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 His leg is much improved after vascular surgery. He is being discharged today and will follow-up in the cardiology clinic to determine the need for further PCI of the RCA as well as improvement in his LVEF. He is being discharged on triple therapy with ASA, plavix, and apixaban. We discussed some of the risks and benefits. May be able to drop the ASA after one month. Other details as above. Tere Blankenship RN - 05/21/2022 5:49 AM EDT Assumed care of pt s/p cath around 1930. TR band off at 2230, site CDI. Pt in a fib on tele w HR in th 90-120s. On RA, denies any CP or SOB overnight. Hep gtt restarted at 0230 per protocol (see eMAR).A+Ox4, SBA w walker, discharge planning as possible. Tere Blankenship, RN Wellington Jean MD - 05/20/2022 4:32 PM EDT Images from the original note were not included. Brief Cardiology Consult: Koko Zamora is a 81 y.o. gentleman with a history of remote mitral valve repair (2000), prediabetes, hyperlipidemia, significant alcohol use, and tobacco use who is admitted to the Vascular Surgery service with acute LLE limb ischemia for which he underwent left femoral cutdown with thromboembolectomy 05/15/22. His course has been complicated by new onset atrial fibrillation with rapid ventricular response, moderate aortic stenosis & HFrEF for which Cardiology is consulted. Interval events: - Pended for cath today to evaluate for ischemia (last cardiac catheterization 2000 was unremarkablefor ASCVD; prior to mitral valve repair) - No other acute events Objective Last value Range last 8 hrs Temperature Temp: 36.8 ??C (98.3 ??F) Temp: [36.4 ??C (97.6 ??F)-36.8 ??C (98.3 ??F)] Heart Rate Heart Rate: (!) 106 Heart Rate: [106] Blood Pressure BP: 109/64 BP: (108-109)/(57-64) Respiratory Rate Resp: 18 Resp: [18] SpO2 SpO2: 90 % SpO2: [90 %-92 %] Intake/Output Summary (Last 24 hours) at 05/20/2022 1632 Last data filed at 05/20/2022 1530 Gross per 24 hour Intake 474 ml Output 1550 ml Net -1076 ml Wt & BMI By Encounter Date Flowsheet Row ED to Hosp-Admission (Current) from 05/15/2022 in [facility] Office Visit from 04/17/2021 in Pain and Spine Center [place] [facility] [place] Weight 79.8 kg (175 lb 14.8 oz) 1 05/15/2022 1800 83.5 kg (184 lb) 1 04/17/2021 1450 BMI 26.97 1 05/15/2022 1800 -- Physical exam General: Pleasant, AO3, in no acute distress Cardiovascular: Regular rate, irregular rhythm, normal S1/2, no obvious murmurs, rubs, or gallops Pulmonary: Good inspiratory effort, clear to auscultation bilaterally without adventitious lung sounds Extremities: Nonedematous, intact DP pulses, L femoral artery Last 3 wbc, hgb, hct plt Recent Labs 05/20/22 0502 05/19/22 0326 05/18/22 0334 WBC 7.8 7.4 8.8 HGB 11.4* 12.1* 11.2* HCT 34.3* 36.4* 33.0* PLATELET 181 168 130* Last 3 Lytes Recent Labs 05/20/22 1050 05/17/22 0333 05/16/22 0301 NA 137 137 138 K 3.6 3.5 4.5 CL 103 102 108* CO2 24 25 22 BUN 11 12 12 CREATININE 0.63* 0.74* 0.66* Last 3 LFTs No results for input(s): AST, ALT, ALKPHOS, BILITOT, BILIDIR in the last 7068 hours. Last Ca, Mg, Phos Recent Labs 05/20/22 1050 05/17/22 0333 05/16/22 0301 CALCIUM 8.7 8.4* 8.2* PHOS -- -- 3.7 MAGNESIUM -- 0.76 0.77 Last 3 Coags Recent Labs 05/15/22 1230 PT 12.9* INR 1.1 PTT 76* Last 3 ProBNP, Trop, CK Recent Labs 05/15/22 1200 CK 87 Relevant Cardiovascular Imaging: TTE 05/16/22 Interpretation Summary Left ventricle is mildly dilated. Left ventricular [...] moderate and LV systolic dysfunction are new. Assessment & Plan Koko Zamora is a 81 y.o. gentleman with above past medicla history admitted with acute LLE ischemia. Cardiac catheterization today revealed 2V CAD (ostial OM1 & distal RCA). He is status-post angioplasty of a mid LCx lesion & stenting of the ostial OM1 lesion. May plan for staged PCI pending clinical course. Unclear at this time whether or not these lesions can account for the severity of hiscardiomyopathy. Reasonable to continue evaluation for alternative/nonsichemic causes. To date, TSH is normal. Certainly warrants consideration of nonsichemic work-up (labs +/- cardiac MRI), potentiallyas an outpatient pending patient preference. #ASCVD - Continue aspirin - Continue plavix - Continue rosuvastatin #Atrial fibrillation - Final AC recs pending cardiac catheterization plan, fine to continue heparin gtt for now - Please increase metoprolol to 12.5 mg Q6 #Heart failure with reduced ejection fraction, systolic, unclear chronicity - S/p cardiac catheterization with PCI to the ostial OM1 05/20 - Agree with beta-norma (as above) - Agree with valsartan - Pending BP tomorrow, will consider addition of spironolactone; BP currently prohibitively low - At discharge will need to be started on an SGLT (empagliflozin or dapagliflozin; whichever is covered by his insurance) - Alcohol cessation counseling Thank you for this interesting Consult. Case discussed with Dr Jean. We will Ted to follow. Please page with any further questions or concerns. Kerry Mcnamara MD Cardiovascular Medicine PGY-5 05/20/2022 Cardiology Staff - Progress Note Addendum This patient was seen and examined on rounds with the cardiology team. I agree with the findings andplan of care per Dr. Mcnamara (dental technology advisor). Please refer to her note above for details. A brief review of the diaz cardiac issues as below: This is a 81 year old smoker who was admitted with critical limb ischemia of his left leg. Vascular surgery performed thromboembolectomy and fasciotomy on the left lower extremity and his leg sensationand movement is much improved. His cardiac history includes a mitral repair in 2000 (not at [facility] [place]) with no CAD at that time. Currently, an echo was obtained during the postoperative period (to his vascular surgery) and demonstrated an LVEF 28% with global hypokinesis. Cardiac cath was recommended for further risk stratification. The cath findings are a bit curious. He has 2VD with disease at an OM branch of the Lcx and the distal RCA just prior to the PDA (and moderate disease at the prox RCA). LAD had mild diffuse disease. This burden of CAD seems unlikely to explain his severely reduced LVEF. The patient denies any angina (says occasional sharp shooting pain and electrical shocks). PCI was performed on the OM lesion and further PCI on the RCA was deferred at this time because there was concern about risk vs benefit (wouldinvolve bifurcation) and consideration of a staged procedure vs stress testing was suggested. May want to optimize medical therapy and reassess in one month. The patient remains in AF which is currently rate controlled with low dose Bblocker. Plans were to resume heparin and switch to oral anticoagulation per vascular. Of note, the patient presented with new AF and the first documented HR at [facility] [place] 125 bpm (presented to an an outside hospital - review those records when available). It is possible that an underlying tachymyopathy may explain the globallyreduced LVEF and the CAD is incidental. Given his PAD, CAD, and AF, he will be on triple therapy with ASA, plavix and AC. Will need to discuss bleeding risk and consider PPI. The patient should have follow-up in cardiology clinic. We will continue to follow. T Dottie Hill APRN - 05/20/2022 8:34 AM EDT Vascular Surgery Progress Note Koko Zamora is a 81 y.o. male with w new onset Afib who presents in transfer from [facility] with acute limb ischemia of the LLE. ?? The patient had sudden pain starting at 630 05/15/22, he presented [facility] where he was placed on heparin. He describes waxing and waning motor and sensory symptoms however he feels like he had been sensory deficits which have slightly improved. He now reports diminished but present sensation. He has decreased motor sensation. ?? He is a smoker of 1/2 pack/day, with no home oxygen or known COPD. ?? He is a prediabetic without any medications. He does report a history of arm ischemia in which his arm turned blue after a cardiac procedure for mitral valve replacement a number of years ago. At that time he underwent a surgery, during which thrombus was removed from the arm. His arm has baseline fu nctioning. Active Hospital Problems Diagnosis ??? Limb ischemia Resolved Hospital Problems No resolved problems to display. Active Non-Hospital Problems Diagnosis ??? History of basal cell carcinoma ??? Basal cell carcinoma ??? Verruca vulgaris ??? AK (actinic keratosis) ??? GIB (gastrointestinal bleeding) ??? MVP (mitral valve prolapse) s/p repair ??? Hypertriglyceridemia ??? Adhesive capsulitis of L shoulder ??? Alcohol use Scheduled Medications: ??? metoproloL tartrate 12.5 mg Oral 2 times per day ??? valsartan 40 mg Oral BID ??? polyethylene glycoL (MIRALAX) oral powder 17 g Oral BID ??? rosuvastatin 40 mg Oral QPM ??? tamsulosin 0.4 mg Oral Daily ??? sodium chloride 0.9 % (flush) 5 mL Intravenous BID ??? thiamine 100 mg Oral Daily ??? folic acid 1,000 mcg Oral Daily ??? multivitamin with minerals 1 tablet Oral Daily Operations This Hospitalization: 05/15/22 Left femoral cutdown with thromboembolectomy 24 hr event/Subjective: Pain well controlled No CP No SOB No n/v NPO for cardiac cath today Objective: Temp: [36.6 ??C (97.9 ??F)-36.9 ??C (98.4 ??F)] Heart Rate: [109-114] Resp: [18] BP: (98-111)/(60-70) SpO2: [90 %-95 %] Heart Rate from SpO2: [96 bpm-114 bpm] BMI: Weight: 79.8 kg (175 lb 14.8 oz) (05/15/22 1800) BMI (Calculated): 26.97 BMI Classification: Over Weight Intake/Output Summary (Last 24 hours) at 05/20/2022 0834 Last data filed at 05/20/2022 0759 Gross per 24 hour Intake 900 ml Output 1525 ml Net -625 ml PHYSICAL EXAM: General: NAD, resting comfortably HEENT: PERRL, anicteric sclerae Neck: trachea midline Heart:: regular rate Pulmonary: non-labored breathing RA Abdomen: soft, non tender, non distended Neuro: no focal deficits Extremities: Groin: c/d/i, no signs of hematoma or bleeding, prevena vac removed LLE: fasciotomy with staple closure, no erythema, no drainage, Palpable DP pulse. RLE: wwp, palpable pulses Labs: Recent Labs 05/20/22 0502 05/19/22 0326 05/18/22 0334 WBC 7.8 7.4 8.8 HGB 11.4* 12.1* 11.2* HCT 34.3* 36.4* 33.0* PLATELET 181 168 130* No results for input(s): NA, K, CL, CO2, BUN, CREATININE, PHOS, CALCIUM in the last 72 hours. New Studies: Images reviewed in chart Assessment & Plan: Koko Zamora is a 81 y.o. male 5 Days Post-Op Left femoral cutdown with thromboembolectomy with4 compartment fasciotomies for acute limb ischemia. He has a history of prior RUE ALI after a prior cardiac procedure years ago. Plan for cardiac cath today. Prevena vac removed today on rounds - Cardiology consult: appreciate recs. Oral metoprolol, valsartan started yesterday - NPO for cardiac cath - replete lytes PRN - therapeutic Hep gtt - ASA allergy, continues on high intensity statin - plan for discharge post cardiac cath or per cards recs Activity: as tolerated Consults: Code: Full Dispo: Floor, dispo planning care management following Dottie Hill APRN 05/20/2022 Pager: [phone] Laney Atkins RN - 05/20/2022 1:14 AM EDT Pt Koko transferred to room from [facility]. A&Ox4, oriented to room and call boo. Masimo and telemetry placed. In agreement with assessment as documented this evening by Nuris ASHLEY. No complaints at this time. Pt aware of NPO status and plan for cardiac cath in AM. Urinal provided. Resting comfortably in bed. Nuris Lester RN - 05/20/2022 1:09 AM EDT Pt. Transferred to [facility]. RN accompanied patient to floor and handed off to [facility] RN Dottie Hill APRN - 05/19/2022 10:02 AM EDT Vascular Surgery Progress Note Koko Zamora is a 81 y.o. male with w new onset Afib who presents in transfer from [facility] with acute limb ischemia of the LLE. ?? The patient had sudden pain starting at 630 05/15/22, he presented [facility] where he was placed on heparin. He describes waxing and waning motor and sensory symptoms however he feels like he had been sensory deficits which have slightly improved. He now reports diminished but present sensation. He has decreased motor sensation. ?? He is a smoker of 1/2 pack/day, with no home oxygen or known COPD. ?? He is a prediabetic without any medications. He does report a history of arm ischemia in which his arm turned blue after a cardiac procedure for mitral valve replacement a number of years ago. At that time he underwent a surgery, during which thrombus was removed from the arm. His arm has baseline fu nctioning. Active Hospital Problems Diagnosis ??? Limb ischemia Resolved Hospital Problems No resolved problems to display. Active Non-Hospital Problems Diagnosis ??? History of basal cell carcinoma ??? Basal cell carcinoma ??? Verruca vulgaris ??? AK (actinic keratosis) ??? GIB (gastrointestinal bleeding) ??? MVP (mitral valve prolapse) s/p repair ??? Hypertriglyceridemia ??? Adhesive capsulitis of L shoulder ??? Alcohol use Scheduled Medications: ??? metoproloL tartrate 12.5 mg Oral 2 times per day ??? valsartan 40 mg Oral BID ??? polyethylene glycoL (MIRALAX) oral powder 17 g Oral BID ??? rosuvastatin 40 mg Oral QPM ??? tamsulosin 0.4 mg Oral Daily ??? sodium chloride 0.9 % (flush) 5 mL Intravenous BID ??? thiamine 100 mg Oral Daily ??? folic acid 1,000 mcg Oral Daily ??? multivitamin with minerals 1 tablet Oral Daily Operations This Hospitalization: 05/15/22 Left femoral cutdown with thromboembolectomy 24 hr event/Subjective: Pain well controlled No CP No SOB No n/v IV Metop x 2 in 24 hours for HR >110 Scheduled Metoprolol, Valsartan started yesterday per cards recs Objective: Temp: [36.4 ??C (97.5 ??F)-37.4 ??C (99.3 ??F)] Heart Rate: [96-116] Resp: [16-18] BP: (99-121)/(61-86) SpO2: [91 %-94 %] Heart Rate from SpO2: [98 bpm-117 bpm] BMI: Weight: 79.8 kg (175 lb 14.8 oz) (05/15/22 1800) BMI (Calculated): 26.97 BMI Classification: Over Weight Intake/Output Summary (Last 24 hours) at 05/19/2022 1002 Last data filed at 05/19/2022 0800 Gross per 24 hour Intake 950.8 ml Output 2425 ml Net -1474.2 ml PHYSICAL EXAM: General: NAD, resting comfortably HEENT: PERRL, anicteric sclerae Neck: trachea midline Heart:: regular rate Pulmonary: non-labored breathing RA Abdomen: soft, non tender, non distended Neuro: no focal deficits Extremities: Groin: c/d/i, no signs of hematoma or bleeding LLE: fasciotomy with staple closure, no erythema, no drainage, Palpable DP pulse. RLE: wwp, palpable pulses Labs: Recent Labs 05/19/22 0326 05/18/22 0334 05/17/22 0333 WBC 7.4 8.8 10.4* HGB 12.1* 11.2* 12.0* HCT 36.4* 33.0* 36.4* PLATELET 168 130* 149 Recent Labs 05/17/22 0333 NA 137 K 3.5 CL 102 CO2 25 BUN 12 CREATININE 0.74* CALCIUM 8.4* New Studies: Images reviewed in chart Assessment & Plan: Koko Zamora is a 81 y.o. male 4 Days Post-Op Left femoral cutdown with thromboembolectomy with4 compartment fasciotomies for acute limb ischemia. He has a history of prior RUE ALI after a prior cardiac procedure years ago. Plan for cardiac cath tomorrow. - Cardiology consult: appreciate recs. Oral metoprolol, valsartan started yesterday - NPO MN for cardiac cath - replete lytes PRN - therapeutic Hep gtt - ASA allergy, continues on high intensity statin - plan for discharge post cardiac cath or per cards recs Activity: as tolerated Consults: Code: Full Dispo: Floor, dispo planning care management following Dottie Hill APRN 05/19/2022 Pager: [phone] Emily Greer RN - 05/19/2022 6:28 AM EDT OUTCOME EVALUATION NOTE: OUTCOME SUMMARY: Patient AOx4, VSS on RA. Afib on tele. HR controlled w/ PRN metop, given x2. Denies CP, SOB, n/v. See flowsheets for NVC. Dressings to LLE CDI, prevena [place] to groin intact. Voiding to urinal. LBM PUBLIC INFORMATION DIRECTOR, patient stating he will maybe try the laxative in the morning. Heparin gtt continued, UFH therapeutic. Pain controlled. Patient sleeping between care. PLAN MOVING FORWARD: Pain Control UFH w/ daily labs Heparin gtt Tele Mobilize DC planning INDIVIDUALIZED FALL PREVENTION INTERVENTIONS: Patient-specific fall risk factors per assessment: [current deficits]: Prevena [place], IV tubing, generalized weakness, hospital environment Assistance [level of assistance required for transfers and ambulation]: 1A FWW Supervision [direct monitoring required during toileting and ADLs]: Eyes on Surveillance [continuous indirect monitoring]: Masimo, Tele, bed alarm, safety check Patient-specific fall prevention interventions for sensory deficits provided, if applicable: [X] N/A Nuris Malone RN - 05/18/2022 6:09 PM EDT OUTCOME EVALUATION NOTE: OUTCOME SUMMARY: A/O x4. Telemetry in place. A-fib rhythm noted. All other VSS on RA. Pain well controlled with scheduled and prn medications per JAN. Dressings to LLE C/D/I. Incisions to LLE WDL and FORREST. Denies n/t toBLE. 2+ dorsal pulses noted. Heparin drip infusing at 1200 units/hr. UFH within therapeutic range, next labs due with morning labs. Voiding adequately without difficulty to bedside urinal. LBM PUBLIC INFORMATION DIRECTOR. Up to chair this AM with nursing staff. Worked with PT, tolerated well. Diet changed to regular at 1800.Plan is for cardiac cath on Friday. PLAN MOVING FORWARD: Bleeding precautions Pain management neurovascular checks PT/OT catheterization laboratory technician INDIVIDUALIZED FALL PREVENTION INTERVENTIONS: Patient-specific fall risk factors per assessment: [current deficits]: Hospital setting, line/devices, generalized weakness, bleeding precautions Assistance [level of assistance required for transfers and ambulation]: 1A fww Supervision [direct monitoring required during toileting and ADLs]: Hands on, eyes on Surveillance [continuous indirect monitoring]: Masimo, bed alarm, telemetry Patient-specific fall prevention interventions for sensory deficits provided, if applicable: [X] No CARE PLAN GOAL OUTCOME EVALUATION: Dottie Hill APRN - 05/18/2022 12:50 PM EDT Vascular Surgery Progress Note Koko Zamora is a 81 y.o. male with w new onset Afib who presents in transfer from [facility] with acute limb ischemia of the LLE. ?? The patient had sudden pain starting at 630 05/15/22, he presented [facility] where he was placed on heparin. He describes waxing and waning motor and sensory symptoms however he feels like he had been sensory deficits which have slightly improved. He now reports diminished but present sensation. He has decreased motor sensation. ?? He is a smoker of 1/2 pack/day, with no home oxygen or known COPD. ?? He is a prediabetic without any medications. He does report a history of arm ischemia in which his arm turned blue after a cardiac procedure for mitral valve replacement a number of years ago. At that time he underwent a surgery, during which thrombus was removed from the arm. His arm has baseline fu nctioning. Active Hospital Problems Diagnosis ??? Limb ischemia Resolved Hospital Problems No resolved problems to display. Active Non-Hospital Problems Diagnosis ??? History of basal cell carcinoma ??? Basal cell carcinoma ??? Verruca vulgaris ??? AK (actinic keratosis) ??? GIB (gastrointestinal bleeding) ??? MVP (mitral valve prolapse) s/p repair ??? Hypertriglyceridemia ??? Adhesive capsulitis of L shoulder ??? Alcohol use Scheduled Medications: ??? polyethylene glycoL (MIRALAX) oral powder 17 g Oral BID ??? rosuvastatin 40 mg Oral QPM ??? tamsulosin 0.4 mg Oral Daily ??? sodium chloride 0.9 % (flush) 5 mL Intravenous BID ??? PHENobarbitaL 0.12 mg/kg/dose ([place]) Oral BID ??? thiamine 100 mg Oral Daily ??? folic acid 1,000 mcg Oral Daily ??? multivitamin with minerals 1 tablet Oral Daily Operations This Hospitalization: 05/15/22 Left femoral cutdown with thromboembolectomy 24 hr event/Subjective: Pain well controlled No CP No SOB No n/v A fib given one dose Metop IV for HR 120 Hep gtt Objective: Temp: [36.4 ??C (97.5 ??F)-37.5 ??C (99.5 ??F)] Heart Rate: [97-125] Resp: [16-18] BP: (103-124)/(51-72) SpO2: [91 %-95 %] Heart Rate from SpO2: [87 bpm-108 bpm] BMI: Weight: 79.8 kg (175 lb 14.8 oz) (05/15/22 1800) BMI (Calculated): 26.97 BMI Classification: Over Weight Intake/Output Summary (Last 24 hours) at 05/18/2022 1250 Last data filed at 05/18/2022 0728 Gross per 24 hour Intake 1066.7 ml Output 1825 ml Net -758.3 ml PHYSICAL EXAM: General: NAD, resting comfortably HEENT: PERRL, anicteric sclerae Neck: trachea midline Heart:: regular rate Pulmonary: non-labored breathing RA Abdomen: soft, non tender, non distended Neuro: no focal deficits Extremities: Groin: c/d/i, no signs of hematoma or bleeding LLE: fasciotomy with staple closure, no erythema, no drainage, Palpable DP pulse. RLE: wwp, palpable pulses Labs: Recent Labs 05/18/22 0334 05/17/22 0333 05/16/22 0301 WBC 8.8 10.4* 11.6* HGB 11.2* 12.0* 12.0* HCT 33.0* 36.4* 35.3* PLATELET 130* 149 151 Recent Labs 05/17/22 0333 05/16/22 0301 NA 137 138 K 3.5 4.5 CL 102 108* CO2 25 22 BUN 12 12 CREATININE 0.74* 0.66* PHOS -- 3.7 CALCIUM 8.4* 8.2* New Studies: Images reviewed in chart Assessment & Plan: Koko Zamora is a 81 y.o. male 3 Days Post-Op Left femoral cutdown with thromboembolectomy with4 compartment fasciotomies for acute limb ischemia. He has a history of prior RUE ALI after a prior cardiac procedure years ago. He has been recovering well and fasciotomy sites will be closed today Neuro - Pain well controlled: Tylenol 650 q6prn - Phenobarb taper CIWA, thiamine, folate CV - s/p Left femoral cutdown with thromboembolectomy with 4 compartment fasciotomies for acute limb ischemia - on theraputic hep gtt - on home statin - OOB, PT/ OT - cardiology consult: Plan:?? -IV diuresis -Will need ischemic evaluation with cardiac catheterization -Would use Coumadin for anticoagulation given the possibility that this was an LV thrombus rather than an atrial fibrillation related thrombi. Cardiac MRI could be helpful to delineate the etiology of his cardiomyopathy, particularly if there is no significant coronary artery disease, and could also be used to get an additional evaluation for laminar thrombus. -Start valsartan 40 mg twice daily today with the intention to switch to Entresto if tolerated. - We will continue to follow Heme - Anticoagulation: therapeutic hep gtt - Anti-platelet: n/a - NOAC screen Pulm - on RA GI - Diet: regular - Bowel regimen: dulcolax, miralax bid Renal - I&Os - on home flomax Activity: as tolerated Consults: Code: Full Dispo: Floor, dispo planning care management following Dottie Hill APRN 05/18/2022 Pager: [phone] Brannon Isaacs, PT - 05/18/2022 10:00 AM EDT Physical Therapy Evaluation Patient profile: Koko Zamora is a 81 y.o. male admitted on 05/15/[address] Fito Summers MD. Per MD notes, pt is 81 y.o. male 3 Days Post-Op Left femoral cutdown with thromboembolectomy with 4 compartment fasciotomies for acute limb ischemia. He has a history of prior RUE ALI after a prior cardiac procedure years ago. He has been recovering well and fasciotomy sites will be closed today Faciotomies closed prior to PT visit. Cardiology consulted, per note, newly discovered atrial fibrillation and TTE showing new LV dysfunction (LVEF 28%) and moderate and pt is waiting for cath to evaluate. Patient with the following active problems: No past medical history on file. Past Surgical History: Procedure Laterality Date ??? IR BIOPSY SPINE 07/20/2019 IR Biopsy Spine 07/20/2019 Bobby Marshall MD [facility] INTERVENTIONL RAD ??? IR VERTEBROPLASTY LUMBAR MULTIPLE LEVELS 07/20/2019 IR Vertebroplasty Lumbar Multiple Levels 07/20/2019 Bobby Marshall MD [facility] INTERVENTIONL RAD ??? IR VERTEBROPLASTY THORACIC SINGLE LEVEL 10/25/2020 IR Vertebroplasty Thoracic Single Level 10/25/2020 Matt Chisholm MD [facility] INTERVENTIONL RAD ??? PRO EMBLC/THRMBC FEMORAL POPLITEAL AORTO-ILIAC ARTERY Left 05/15/2022 EMBOLECTOMY OR THROMBECTOMY, FEMOROPOPLITEAL, AORTOILIAC ARTERY BY LEG INCISION (WRVU 19.48) performed by Fito Summers MD at [facility] MAIN OR Social History: Pt lives with his , both are independent at baseline. He does have a walker from a prior time ofneeding it. His can help out as needed. He has several steps w/rail to access his home then allneeds on one floor. Precautions/Special Considerations: L groin incision with Prevena vac, Afib on tele, fall risk Mobility and Positioning Recommendations: ?? Pt. to utilize walker and one assist for ambulation and transfers with nursing. ?? Please encourage up to chair for meal times as able. ?? Pt encouraged to ambulate frequently with staff, getting into the bathroom for toileting and walking out in the abrams >/= 3 times daily as able. Subjective: ???feeling okay, better than I thought it would be It does hurt to put a lot of pressue on the foot?? Objective: Pt seen for evaluation today. Pain: tolerable Vital Signs: HR 90s at rest, noted one moment when it was 128. Sats WNL on room air; BP supine 112/75. Mental Status: alert, oriented to person, place, and time Musculoskeletal: ROM: limited hip, knee and ankle motion d/t pain Strength: WFL Bed Mobility: Supine to Sit: min assist, R side of bed, bed nearly flat Sit to Supine: cues only Transfers: Sit to Stand: contact guard assist Stand to Sit: standby supervision Using FWW Gait: Distance: 60 feet Device used: front wheel walker Level of assist: Standby supervision Gait mechanics: At first trying to avoid standing on L leg thus was a bit unstready for a few steps,but then steady after he took a few steps and started putting some weight on L leg Balance: Sitting Static: good Sitting Dynamic: good Standing Static: good with walker Standing Dynamic / Gait: Fair/good with walker Education: patient has been educated on Role of therapy and Discharge planning and verbalizes understanding. Patient status, treatment, and mobility recommendations discussed with nursing. Assessment: Koko Zamora was seen today for physical therapy evaluation. The patient tolerated the PT eval fairly. Slightly painful and anxious about bearing full weight on L leg. Presents with pain, general malaise r/t current medical issues, decreased ROM, decreased balance and groin incision Prevena vac, and stapled lower leg fasciotomy sites, all impacting his/her functional mobility, ambulation status, activity tolerance and ability to manage own needs. The pt would benefit from skilled therapy services to address impairments/deficits, for pt/caregiver education, and to promote optimal con ditioning while admitted in the hospital. Discharge Recommendations: Based on the current findings, Anticipated Discharge Disposition (PT): home with home health, home with supervision when medically ready for hospital discharge. Consult Recommendations: No other consults recommended at this time Equipment needs: Anticipated Equipment Needs at Discharge (PT): None Goals: To be achieved by 05/22/22: 1. Pt. to perform bed mobility independently, bed flat 2. Pt. to perform all transfers independently using a front wheeled walker. 3. Pt. to ambulate 150 feet independently using a a front wheeled walker. 4. Pt. to negotiate 5-6 step/stairs using one rail with supervision. Plan: Therapy Frequency (PT): 1-2 more times for therapy including balance training, bed mobility training, gait training, patient/family education, stair training and transfer training. Patient/familyunderstand and agree with plan as stated above. 2017 PT Evaluation Code Rationale: ?? Diagnosis & Pertinent Co-Morbidities, personal factors, and present illness affecting Plan ofCare: (see above); Additional personal factors or co- morbidities that impact plan: ?? Total # of Factors: 0 1-2 3+ x ?? Examination of body system impairments, functional limitations and behaviors, and/or participation restrictions. Addressing 1-2 elements Addressing 3 + elements x Addressing 4 + elements ?? Clinical presentation: See assessment above. Stable/Uncomplicated Evolving/Fluctuating Symptoms Unstable/Unpredictable x ?? Clinical decision making of moderate complexity based on pt's functional performance as outlined in this evaluation. Time IN / OUT: 8163-6707 Total Minutes, Physical Therapy: 30 Billing Code: Basilio Isaacs, PT Pager: [phone] Physical Therapy Inpatient Rehabilitation Department Emily Sauceda RN - 05/18/2022 4:34 AM EDT OUTCOME EVALUATION NOTE: OUTCOME SUMMARY: Patient AOx4, VSS on 2LNC. Afib on tele. HR above 120, MD aware, PRN IV metop given x1, HR returned to 90's-low 100's. Denies CP, SOB, n/v. See flowsheets for NVC. Dressings to LLE CDI, prevena [place] to groin intact. Voiding to urinal. LBM PUBLIC INFORMATION DIRECTOR. Heparin gtt therapeutic. Pain controlled. Patient sleeping between care. PLAN MOVING FORWARD: Pain control UFH w/ daily labs Mobilize DC planning INDIVIDUALIZED FALL PREVENTION INTERVENTIONS: Patient-specific fall risk factors per assessment: [current deficits]: Generalized weakness, prevenaWV, hospital environment Assistance [level of assistance required for transfers and ambulation]: 1A FWW (PT to re-evaluate 05/18) Supervision [direct monitoring required during toileting and ADLs]: Eyes on Surveillance [continuous indirect monitoring]: Masimo, bed alarm, safety check Patient-specific fall prevention interventions for sensory deficits provided, if applicable: [X] N/A Nuris Lester RN - 05/17/2022 6:25 PM EDT OUTCOME EVALUATION NOTE: OUTCOME SUMMARY: A/O x4. Telemetry in place. A-fib rhythm noted. All other VSS on 2L NC. Pain well controlled with scheduled and prn medications per JAN. Dressings to LLE C/D/I. Closure of fasciotomies performed at bedside by MD, wrapped with guaze dressing. Denies n/t to BLE. 2+ dorsal pulses noted. Heparin drip infusing at 1200 units/hr. UFH within therapeutic range, next labs due with morning labs. Voiding adequately without difficulty to bedside urinal. LBM PUBLIC INFORMATION DIRECTOR. Patient not OOB this shift. Currently NPO awaitingprocedure in metallurgical laboratory assistant. PLAN MOVING FORWARD: Bleeding precautions Pain management neurovascular checks PT/OT NPO for metallurgical laboratory assistant INDIVIDUALIZED FALL PREVENTION INTERVENTIONS: Patient-specific fall risk factors per assessment: [current deficits]: Hospital setting, line/devices, generalized weakness, bleeding precautions Assistance [level of assistance required for transfers and ambulation]: 1A fww (not OOB yet) Supervision [direct monitoring required during toileting and ADLs]: Hands on, eyes on Surveillance [continuous indirect monitoring]: Masimo, bed alarm, telemetry Patient-specific fall prevention interventions for sensory deficits provided, if applicable: [X] No CARE PLAN GOAL OUTCOME EVALUATION: Lisbet Herman PT - 05/17/2022 2:40 PM EDT Physical Therapy 05/17/22 1440 Evaluation & Treatment Document Type contact Total Minutes, Physical Therapy 10 Comment, Session Not Performed Orders recieved on Koko Zamora who is a 81 y.o male with history of atrial fibrillation not on anticoagulation, and GI bleeding who presented to the Emergency Department as a transfer from [facility] with left lower extremity limb ischemia. He went to [facility] and was startedon heparin and transferred to [facility] for evaluation by vascular surgery with subsequent surgery 05/15/22 for a Left common femoral transverse arteriotomy and primary repair Thromboembolectomy of the SFA, profunda, and common femoral artery w/ Left lower extremity 4 compartment fasciotomies. Cardiology has consulted and following. Transthoracic echo yesterday shows severely reduced LVEF 28%, with mildly decreased RV systolic function. Moderate aortic stenosis. Moderate and LV systolic dysfunction were new from 2011.Pt visted, present in room with MDs the arriving for planned closure of fasciotomies at bedside after which he will will be going to the metallurgical laboratory assistant for evaluation. Will defer PT eval at present but will see as ordered post cardiac catheritizaton. Social Hx:Pt lives with his Ursula in [place], [place] in a 2 level home in which they only use the first level. 5 stes w/ R railing at preferred entrance to home. Bathrrom is stall shower w/ new comfort height toilet Pt sleeps in a flat bed, exits out toward the R side of bed DME has a walker and recliner Baseline function: fully indep ADLs. IADls, + driving Precautions: Pt will be WBAT LLE LISBET HERMAN PT Pager # [phone] In-Pt Rehab Medicine Dottie Hill APRN - 05/17/2022 7:42 AM EDT Vascular Surgery Progress Note Koko Zamora is a 81 y.o. male with w new onset Afib who presents in transfer from [facility] with acute limb ischemia of the LLE. ?? The patient had sudden pain starting at 630 05/15/22, he presented [facility] where he was placed on heparin. He describes waxing and waning motor and sensory symptoms however he feels like he had been sensory deficits which have slightly improved. He now reports diminished but present sensation. He has decreased motor sensation. ?? He is a smoker of 1/2 pack/day, with no home oxygen or known COPD. ?? He is a prediabetic without any medications. He does report a history of arm ischemia in which his arm turned blue after a cardiac procedure for mitral valve replacement a number of years ago. At that time he underwent a surgery, during which thrombus was removed from the arm. His arm has baseline fu nctioning. Active Hospital Problems Diagnosis ??? Limb ischemia Resolved Hospital Problems No resolved problems to display. Active Non-Hospital Problems Diagnosis ??? History of basal cell carcinoma ??? Basal cell carcinoma ??? Verruca vulgaris ??? AK (actinic keratosis) ??? GIB (gastrointestinal bleeding) ??? MVP (mitral valve prolapse) s/p repair ??? Hypertriglyceridemia ??? Adhesive capsulitis of L shoulder ??? Alcohol use Scheduled Medications: ??? polyethylene glycoL (MIRALAX) oral powder 17 g Oral BID ??? rosuvastatin 40 mg Oral QPM ??? tamsulosin 0.4 mg Oral Daily ??? sodium chloride 0.9 % (flush) 5 mL Intravenous BID ??? PHENobarbitaL 0.24 mg/kg/dose ([place]) Oral BID Followed by ??? [START ON 05/18/2022] PHENobarbitaL 0.12 mg/kg/dose ([place]) Oral BID ??? thiamine 100 mg Oral Daily ??? folic acid 1,000 mcg Oral Daily ??? multivitamin with minerals 1 tablet Oral Daily Operations This Hospitalization: 05/15/22 Left femoral cutdown with thromboembolectomy 24 hr event/Subjective: Pain well controlled No CP No SOB No n/v Episode A fib RVR overnight, 1 dose Metop given Objective: Temp: [36.7 ??C (98.1 ??F)-38.3 ??C (100.9 ??F)] Heart Rate: -- Resp: [16-18] BP: (89-117)/(57-74) SpO2: [90 %-94 %] Heart Rate from SpO2: [95 bpm-117 bpm] BMI: Weight: 79.8 kg (175 lb 14.8 oz) (05/15/22 1800) BMI (Calculated): 26.97 BMI Classification: Over Weight Intake/Output Summary (Last 24 hours) at 05/17/2022 0742 Last data filed at 05/17/2022 0606 Gross per 24 hour Intake 200 ml Output 2435 ml Net -2235 ml PHYSICAL EXAM: General: NAD, resting comfortably HEENT: PERRL, anicteric sclerae Neck: trachea midline Heart:: regular rate Pulmonary: non-labored breathing RA Abdomen: soft, non tender, non distended Neuro: no focal deficits Extremities: Groin: c/d/i, no signs of hematoma or bleeding LLE: fasciotomy small amt serosang drainage, clean Palpable DP pulse. RLE: wwp, palpable pulses Labs: Recent Labs 05/17/22 0333 05/16/22 0301 05/15/22 1200 WBC 10.4* 11.6* 9.4 HGB 12.0* 12.0* 14.5 HCT 36.4* 35.3* 42.4 PLATELET 149 151 209 Recent Labs 05/17/22 0333 05/16/22 0301 05/15/22 1200 NA 137 138 141 K 3.5 4.5 4.7 CL 102 108* 107 CO2 25 22 23 BUN 12 12 16 CREATININE 0.74* 0.66* 0.84 PHOS -- 3.7 -- CALCIUM 8.4* 8.2* 8.5 New Studies: Images reviewed in chart Assessment & Plan: Koko Zamroa is a 81 y.o. male 2 Days Post-Op Left femoral cutdown with thromboembolectomy with4 compartment fasciotomies for acute limb ischemia. He has a history of prior RUE ALI after a prior cardiac procedure years ago. He has been recovering well and fasciotomy sites will be closed today Neuro - Pain well controlled: Tylenol 650 q6prn - Phenobarb taper CIWA, thiamine, folate CV - s/p Left femoral cutdown with thromboembolectomy with 4 compartment fasciotomies for acute limb ischemia - on theraputic hep gtt - closing fasciotomies today - on home statin - OOB, PT/ OT Heme - Anticoagulation: therapeutic hep gtt - Anti-platelet: n/a - NOAC screen Pulm - on RA GI - Diet: regular - Bowel regimen: dulcolax, miralax bid Renal - I&Os - Cooper out, +voided - on home flomax Activity: as tolerated Consults: Code: Full Dispo: Floor, dispo planning care management following Dottie Hill APRN 05/17/2022 Pager: [phone] Sary Dos Santos, RN - 05/17/2022 12:16 AM EDT OUTCOME EVALUATION NOTE: ?? OUTCOME SUMMARY: ?? Pt is Aox4, 2L NC, dressing to the LLE CDI, L groin prevena wound vac in place. LLE warm to touch, able to move toes, good pulse. ?? VSS, denies any chest pain or sob. Heparin gtt infusing @1200units theraupetic. Around 1999 pt had fever 100.9 and more tachy up to the 120's. Tylenol x1, cxray, EKG showing Afib with RVR, pt placed ontele and x1 dose of metoprolol given. UA sent. ?? INDIVIDUALIZED FALL PREVENTION: Patient is currently a high risk to Fall. Patient educated on bed/chair alarm, demonstrates proper use of call boo and verbalizes understanding of fall preventions implemented. Patient-specific fall risk factors per assessment: [current deficits]: Pain, Medications, Hospital Environment, Impaired Mobility, Recent Surgery ?? Assistance [level of assistance required for transfers and ambulation]: Bedrest ?? Surveillance [continuous indirect monitoring]: Masimo, Purposeful Rounding, Nurse Knowledge Exchangeat Bedside, Bed Alarm Set Candelaria [place], DION - 05/16/2022 4:53 PM EDT Pt stated his pain 0-6/10. He had a regular diet, tolerated well, denied nausea. Cooper removed in the AM. Pt voiding adequately w/ max PVR 190. No BM this shift. Heparin infusion maintained @ 1200units/hr. Next UFH due @ 2230. Echo completed in AM. Lft lower drsg CDI. Edward Rodríguez MD - 05/16/2022 3:33 PM EDT Vascular Surgery Progress Note Koko Zamora is a 81 y.o. male with w new onset Afib who presents in transfer from [facility] with acute limb ischemia of the LLE. ?? The patient had sudden pain starting at 630 05/15/22, he presented [facility] where he was placed on heparin. He describes waxing and waning motor and sensory symptoms however he feels like he had been sensory deficits which have slightly improved. He now reports diminished but present sensation. He has decreased motor sensation. ?? He is a smoker of 1/2 pack/day, with no home oxygen or known COPD. ?? He is a prediabetic without any medications. He does report a history of arm ischemia in which his arm turned blue after a cardiac procedure for mitral valve replacement a number of years ago. At that time he underwent a surgery, during which thrombus was removed from the arm. His arm has baseline fu nctioning. Active Hospital Problems Diagnosis ??? Limb ischemia Resolved Hospital Problems No resolved problems to display. Active Non-Hospital Problems Diagnosis ??? History of basal cell carcinoma ??? Basal cell carcinoma ??? Verruca vulgaris ??? AK (actinic keratosis) ??? GIB (gastrointestinal bleeding) ??? MVP (mitral valve prolapse) s/p repair ??? Hypertriglyceridemia ??? Adhesive capsulitis of L shoulder ??? Alcohol use Scheduled Medications: ??? polyethylene glycoL (MIRALAX) oral powder 17 g Oral BID ??? rosuvastatin 40 mg Oral QPM ??? tamsulosin 0.4 mg Oral Daily ??? sodium chloride 0.9 % (flush) 5 mL Intravenous BID ??? PHENobarbitaL 0.48 mg/kg/dose ([place]) Oral BID Followed by ??? [START ON 05/17/2022] PHENobarbitaL 0.24 mg/kg/dose ([place]) Oral BID Followed by ??? [START ON 05/18/2022] PHENobarbitaL 0.12 mg/kg/dose ([place]) Oral BID ??? thiamine 100 mg Oral Daily ??? folic acid 1,000 mcg Oral Daily ??? multivitamin with minerals 1 tablet Oral Daily Operations This Hospitalization: 05/15/22 Left femoral cutdown with thromboembolectomy Subjective: Pain moderately controlled, denies nausea, vomiting, chest pain or shortness of breath. Endorses satisfaction with feeling and movement back to his foot after revasc. Tolerated fasciotomy wet to dry changes with moderate pain that subsided once complete. Objective: Temp: [36.3 ??C (97.3 ??F)-37.2 ??C (99 ??F)] Heart Rate: [96-115] Resp: [13-22] BP: (86-121)/(51-89) SpO2: [90 %-95 %] Heart Rate from SpO2: [87 bpm-113 bpm] BMI: Weight: 79.8 kg (175 lb 14.8 oz) (05/15/22 1800) BMI (Calculated): 26.97 BMI Classification: Over Weight Intake/Output Summary (Last 24 hours) at 05/16/2022 1609 Last data filed at 05/16/2022 1300 Gross per 24 hour Intake 1386 ml Output 1765 ml Net -379 ml PHYSICAL EXAM: General: NAD, resting comfortably HEENT: PERRL, anicteric sclerae Neck: trachea midline Heart:: regular rate Pulmonary: non-labored breathing RA Abdomen: soft, non tender, non distended Neuro: no focal deficits Extremities: Groin: Dressing c/d/i, no signs of hematoma or bleeding LLE: fasciotomy sites wrapped in kerlix. Palpable DP pulse. Improved strength and sensation RLE: wwp, palpable pulses Labs: Recent Labs 05/16/22 0301 05/15/22 1200 WBC 11.6* 9.4 HGB 12.0* 14.5 HCT 35.3* 42.4 PLATELET 151 209 Recent Labs 05/16/22 0301 05/15/22 1200 NA 138 141 K 4.5 4.7 CL 108* 107 CO2 22 23 BUN 12 16 CREATININE 0.66* 0.84 PHOS 3.7 -- CALCIUM 8.2* 8.5 New Studies: Images reviewed in chart Assessment & Plan: Koko Zamora is a 81 y.o. male 1 Day Post-Op Left femoral cutdown with thromboembolectomy with 4 compartment fasciotomies for acute limb ischemia. He has a history of prior RUE ALI after a prior cardiac procedure years ago. He has been recovering well and anticipating fasciotomy sites will be closed on 05/17/22. Neuro - Pain well controlled: Tylenol 650 q6prn - Phenobarb taper CIWA, thiamine, folate CV - s/p Left femoral cutdown with thromboembolectomy with 4 compartment fasciotomies for acute limb ischemia - on theraputic hep gtt - anticipating closing fasciotomies in LLE 05/17/22 - on home statin - OOB, PT/ OT Heme - Anticoagulation: therapeutic hep gtt - Anti-platelet: n/a Pulm - on RA GI - Diet: regular - Bowel regimen: dulcolax, miralax bid Renal - I&Os - Cooper out, +voided - on home flomax Activity: as tolerated Consults: Code: Full Dispo: Floor, dispo planning care management following Edward Rodríguez MD 05/16/2022 Pager: [phone] Sary Dos Santos RN - 05/16/2022 12:52 AM EDT OUTCOME EVALUATION NOTE: OUTCOME SUMMARY: Arrived from PACU at 2150. Pt is Aox4, 2L NC, dressing to the LLE CDI, L groin prevena wound vac in place. LLE warm to touch, able to move toes, good pulse. C/o of pain with movement to the LLE overnight but refused any pain meds. Cooper in place and intact. VSS, denies any chest pain or sob. Heparin gtt infusing @10mls/hr. INDIVIDUALIZED FALL PREVENTION: Patient is currently a high risk to Fall. Patient educated on bed/chair alarm, demonstrates proper use of call boo and verbalizes understanding of fall preventions implemented. Patient-specific fall risk factors per assessment: [current deficits]: Pain, Medications, Hospital Environment, Impaired Mobility, Recent Surgery Assistance [level of assistance required for transfers and ambulation]: Bedrest Surveillance [continuous indirect monitoring]: Masimo, Purposeful Rounding, Nurse Knowledge Exchangeat Bedside, Bed Alarm Set Barbie Ashraf MD - 05/15/2022 7:15 PM EDT Surgery Post Op Check Koko Zamora is a 81 y.o. male status post -Left common femoral transverse arteriotomy and primary repair -Thromboembolectomy of the SFA, profunda, and common femoral artery -Left lower extremity 4 compartment fasciotomies S: No nausea/vomiting, chest pain, SOB, pain well controlled, offers no complaints O: Temp: [36.3 ??C (97.3 ??F)-36.4 ??C (97.5 ??F)] Heart Rate: [103-125] Resp: [14-22] BP: (97-126)/(62-85) SpO2: [91 %-95 %] Heart Rate from SpO2: [91 bpm-112 bpm] I/O last 3 completed shifts: In: 2600 [I.V.:2600] Out: 1610 [Urine:960; Blood:650] No intake/output data recorded. UOP since OR: 550mL Physical Exam General: NAD, resting comfortably HEENT: PERRL, anicteric sclerae CVS: Irregular rate Pulm: Breathing comfortably on 2L NC Abd: soft, non tender, non distended Ext: RLE: No edema. Skin warm and pink. No tissue loss. DP 2+. LLE: No edema. Skin warm and pink. No tissue loss. DP2+. Incisional dressing c/d/i. Plantarflexion and dorsiflexion 4/5. Neuro: CN 2-12 grossly intact, nonfocal, moving all extremities. Sensation intact in extremities bilaterally symmetric. Motor function intact in extremities, bilaterally symmetric. AP Koko Zamora is a 81 y.o. male status post: -Left common femoral transverse arteriotomy and primary repair -Thromboembolectomy of the SFA, profunda, and common femoral artery -Left lower extremity 4 compartment fasciotomies Currently in stable condition and recovering well. - pain well controlled - hemodynamically stable - UOP adequate Barbie Ashraf MD Vascular Surgery 05/15/22 Dottie Gutierrez RN - 05/15/2022 6:49 PM EDT 1630 Patient admitted to PACU. Hand off received from Torres Aguilar CRNA. care assumed. Hypotensive by A-line, waveform dampened. Will rely on cuff. Assessments as documented. Monitors on, alarms audible and individualized to patient. 1929 PACU D/C criteria met 2129 Hand off to DION Ramirez 3 rossiter documented in this encounter H&P Notes Kerry Mcnamara MD - 05/20/2022 8:30 AM EDT Images from the original note were not included. Koko Zamora is a 81 y.o. male referred for cardiac catheterization for evaluation of cardiomyopathy. Briefly this is a 81 y.o. gentleman with a history of remote mitral valve repair, hyperlipidemia, and tobacco use who is admitted to the Vascular Surgery service with acute limb ischemia. Course has been complicated by new onset AF RVR, moderate , and newly discovered HFrEF (LVEF 28%). He is referred for cardiac catheterization for this to exclude an ischemic etiology. Patient denies any history of bleeding issues and specifically denies hematochezia, melena, hematemesis, intraabdominal bleeding, intracranial bleeding. Denies any history of kidney disease or diabetes. NPO status: Since 05/19 PM Outpatient Medications Marked as Taking for the 05/15/22 encounter (Hospital Encounter) Medication Sig Dispense Refill ??? fluorouraciL (EFUDEX) 5 % Cream daily. ??? CRESTOR 40 mg Tablet Take 40 mg by mouth daily. BP 109/69 (BP Location (NBP): Right arm, Patient Position: Lying) Pulse (!) 114 Temp 36.6 ??C (97.9 ??F) (Oral) Resp 18 Ht 172 cm (5' 7.72) Wt 79.8 kg (175 lb 14.8 oz) SpO2 93% BMI 26.97kg/m?? PE NAD CV: RRR, S1 S2 physiologic Pulm: Non-labored, CTAB, no w/r/r Vasc: 2+ bilat radial with favorable Butch's test on the R, 2+R femoral, L femoral bandaged, post-op Extr: wwp, no edema, surgical incisions C/D/I on L calf ASA: 2: Patient with mild systemic disease Mallampati: III: only the base of the uvula can be seen Labs reviewed and notable for: Lab Results Component Value Date WBC 7.8 05/20/2022 HGB 11.4 (L) 05/20/2022 HCT 34.3 (L) 05/20/2022 MCV 97.2 (H) 05/20/2022 PLATELET 181 05/20/2022 Lab Results Component Value Date CREATININE 0.74 (L) 05/17/2022 BUN 12 05/17/2022 NA 137 05/17/2022 K 3.5 05/17/2022 CL 102 05/17/2022 CO2 25 05/17/2022 Lab Results Component Value Date INR 1.1 05/15/2022 TTE 05/20/22 Interpretation Summary Left ventricle is mildly dilated. Left ventricular [...] and LV systolic dysfunction are new. ?? A/P 81 y.o. male here for cardiac catheterization for evaluation of cardiomyopathy. The indications, expected benefits, and potential risks of diagnostic or therapeutic catheterizationwere reviewed in detail with the patient. The potential for , myocardial infarction, arrhythmias, stroke, kidney failure, hemorrhage, allergic reaction to contrast, vascular complications and infection were reviewed in detail. The possibility of stenting and other percutaneous intervention, with associated risk, was reviewed. The possible need for emergent coronary artery bypass surgery was reviewed. Alternatives were discussed and the patient's questions were answered. Following this discussion, the patient consented to the procedure and signed a form attesting to this. - Proceed as planned - Consent reviewed and signed - No obvious CI to DAPT - Sedation plan: moderate/conscious sedation - FULL CODE Kerry Mcnamara MD 05/20/2022 8:30 AM Tim Chicas MD - 05/15/2022 11:33 AM EDT Vascular Surgery History and Physical HPI: Koko Zamora is a 81M w new onset Afib who presents in transfer from [facility] with acute limb ischemia of the LLE. The patient had sudden pain starting at 630 this morning he presented [facility] where he was placed on heparin. He describes waxing and waning motor and sensory symptoms however he feels like he had been sensory deficits which have slightly improved. He now reports diminished but present sensation. He hasdecreased motor sensation. He is a smoker of 1/2 pack/day, with no home oxygen or known COPD. He is a prediabetic without any medications. He does report a history of arm ischemia in which his arm turned blue after a cardiac procedure for mitral valve replacement a number of years ago. At that time he underwent a surgery, during which thrombus was removed from the arm. His arm has baseline fu nctioning. He has no history of bleeding, he does not take any blood thinners. He has not eaten since yesterday. There are no hospital problems to display for this patient. Active Non-Hospital Problems Diagnosis ??? History of basal cell carcinoma ??? Basal cell carcinoma ??? Verruca vulgaris ??? AK (actinic keratosis) ??? GIB (gastrointestinal bleeding) ??? MVP (mitral valve prolapse) s/p repair ??? Hypertriglyceridemia ??? Adhesive capsulitis of L shoulder ??? Alcohol use Review of Systems: ROS per HPI Past Medical History: No past medical history on file. Past Surgical History: Past Surgical History: Procedure Laterality Date ??? IR BIOPSY SPINE 07/20/2019 IR Biopsy Spine 07/20/2019 Bobby Marshall MD [facility] INTERVENTIONL RAD ??? IR VERTEBROPLASTY LUMBAR MULTIPLE LEVELS 07/20/2019 IR Vertebroplasty Lumbar Multiple Levels 07/20/2019 Bobby Marshall MD [facility] INTERVENTIONL RAD ??? IR VERTEBROPLASTY THORACIC SINGLE LEVEL 10/25/2020 IR Vertebroplasty Thoracic Single Level 10/25/2020 Matt Chisholm MD [facility] INTERVENTIONL RAD Social Hx: Social History Socioeconomic History ??? Marital status: Spouse name: Not on file ??? Number of children: Not on file ??? Years of education: Not on file ??? Highest education level: Not on file Occupational History ??? Not on file Tobacco Use ??? Smoking status: Current Some Day Smoker Packs/day: 0.50 Years: 50.00 Pack years: [...] on file Housing Stability: Not on file Family Hx: No family history on file. Medications: No current facility-administered medications on file prior to encounter. Current Outpatient Medications on File Prior to Encounter Medication Sig Dispense Refill ??? fluticasone propionate (FLONASE) 50 mcg/actuation O'Brien, Suspension as needed. ??? fluorouraciL (EFUDEX) 5 % Cream daily. ??? ascorbic acid, vitamin C, (VITAMIN C) 1,000 mg Tablet daily. ??? sildenafil (VIAGRA) 100 mg Tablet Take 100 mg by mouth as needed for Erectile Dysfunction. ??? carboxymethylcellulose (REFRESH PLUS) 0.5 % Dropperette Apply to eye 3 times daily as needed. ??? calcium citrate (CALCITRATE) 200 mg (950 mg) Tablet Take 1 tablet by mouth daily. ??? tamsulosin (FLOMAX) 0.4 mg Capsule Take 0.4 mg by mouth daily. ??? ibuprofen (ADVIL;MOTRIN) 200 mg Tablet Take 200 mg by mouth every 6 hours as needed for Pain. ??? CRESTOR 40 mg Tablet Take 40 mg by mouth daily. ??? MULTIVITAMIN (MULTIPLE VITAMIN ORAL) Take 1 tablet by mouth daily. Allergies: Allergies Allergen Reactions ??? Aspirin Other (See Comments) GI bleed Physical Exam: Vital Signs: Temp: -- Heart Rate: -- Resp: -- BP: ()/() SpO2: -- Heart Rate from SpO2: -- BMI: Physical Exam General: NAD, resting comfortably HEENT: NCAT CVS: RR Pulm: NWOB Abd: Non-distended Ext: Left leg is cool to the touch with no palpable pulses in the femoral artery with a pedal vessels. Right leg has a palpable DP pulse. There is no tissue loss to the left leg. The left leg has diminished sensation, and diminished motor. He is able to dorsi and plantarflex but much weaker than the right side. He is able to tell when there is sensory stimulus, but cannot localize it and reports that it is diminished. Neuro: Grossly intact to conversation Labs: No results for input(s): WBC, HGB, HCT, PLATELET in the last 72 hours. No results for input(s): NA, K, CL, CO2, BUN, CREATININE, PHOS, CALCIUM in the last 72 hours. Studies/Imaging: CT angiogram reviewed, acute embolus to the common femoral artery. Assessment and Plan: 81-year-old patient with a history of acute limb ischemia of the right upper extremity presents withacute limb ischemia of the left lower extremity. Risks and benefits of embolectomy, fasciotomies have been discussed. Patient will proceed to the OR as a B case. Marked and consented. Tim Chicas MD 05/15/2022 Pager: [phone] documented in this encounter ED Notes Lc Harris PA - 05/15/2022 1:20 PM EDT ED Provider Note HPI: Koko Zamora is a 81 y.o. male with history of atrial fibrillation not on anticoagulation, and GI bleeding who presents to the Emergency Department as a transfer from [facility] with left lower extremity limb ischemia. Patient says that the symptoms started roughly 630 this morning when he developed severe pain in his left lower extremity. He went to [facility] and was started on heparin and transferred to [facility] for evaluation by vascular surgery. Review of Systems Pertinent positives and negatives are included in the HPI, otherwise at least ten systems were reviewed and negative. Past Medical and Surgical Histories, Social History, Medications, Allergies were reviewed in the chart. Vitals: ED Triage Vitals [05/15/22 1200] BP: 126/85 Heart Rate: (!) 125 Resp: 20 Temp: 36.4 ??C (97.5 ??F) Temp src: Oral SpO2: 94 % O2 Device: NC O2 Flow Rate (L/min): 2 L/min Physical Exam Vitals and nursing note reviewed. Constitutional: Appearance: He is well-developed. HENT: Head: Atraumatic. Eyes: Pupils: Pupils are equal, round, and reactive to light. Neck: Trachea: No tracheal deviation. Cardiovascular: Rate and Rhythm: Normal rate. Comments: Left lower extremity is cold without a palpable dorsalis pedis or posterior tibialis pulse. Pulmonary: Effort: Pulmonary effort is normal. Musculoskeletal: General: Normal range of motion. Skin: General: Skin is warm and dry. Findings: No rash. Neurological: General: No focal deficit present. Psychiatric: Mood and Affect: Mood normal. Recent Results (from the past 24 hour(s)) Basic Metabolic Panel (non-fasting) Result Value Ref Range Glucose Lvl 203 (H) 65 - 199 mg/dL BUN 16 10 - 20 mg/dL Creatinine 0.84 0.80 - 1.50 mg/dL Sodium 141 135 - 145 mmol/L Potassium 4.7 3.5 - 5.0 mmol/L Chloride 107 98 - 107 mmol/L CO2 23 22 - 31 mmol/L Anion Gap 11 5 - 15 mmol/L Calcium 8.5 8.5 - 10.5 mg/dL Estimated GFR 89 >=60 mL/min/1.73 m?? Hemogram Result Value Ref Range WBC 9.4 4.0 - 9.5 x10(3)/mcL RBC 4.48 (L) 4.58 - 5.54 x10(6)/mcL Hemoglobin 14.5 13.7 - 16.5 g/dL Hematocrit 42.4 40.5 - 48.5 % MCV 94.6 (H) 82.9 - 93.1 fL MCH 32.4 (H) 27.5 - 32.1 pg MCHC 34.2 32.0 - 35.7 g/dL Platelets 209 145 - 357 x10(3)/mcL RDWSD 45.9 (H) 36.0 - 45.0 fL RDWCV 13.1 11.4 - 13.8 % MPV 10.5 7.6 - 12.9 fL nRBC % Auto 0.0 % nRBC Abs Auto 0.000 0.000 - 0.000 x10(3)/mcL Differential, Automated Result Value Ref Range Neutrophils % 79.4 % Neutr Abs (ANC) 7.49 (H) 1.70 - 6.10 x10(3)/mcL Lymphocytes % 11.3 % Lymphocytes Abs 1.1 0.9 - 3.2 x10(3)/mcL Monocytes % 7.8 % Monocyte Abs 0.7 0.3 - 0.9 x10(3)/mcL Eosinophils % 0.6 % Eosinophils Abs 0.1 0.0 - 0.4 x10(3)/mcL Basophils % 0.6 % Basophils Abs 0.1 0.0 - 0.1 x10(3)/mcL Immature Gran % 0.30 % Rain Gran Abs 0.03 0.00 - 0.04 x10(3)/mcL Antibody screen Result Value Ref Range Expires at 2359 on: 05/18/2022 CK Result Value Ref Range CK, Total 87 0 - 200 unit/L ABORH Recheck Status Result Value Ref Range ABORH Recheck Order Order Placed Gold Tube HOLD Result Value Ref Range Gold Hold Sample in lab. APTT Result Value Ref Range PTT 76 (H) 25 - 37 sec Prothrombin Time Result Value Ref Range PT 12.9 (H) 9.4 - 12.5 sec INR 1.1 XR Fluoro No Rad <1Hr - OR Use (Results Pending) Procedures Assessment and Plan: 81 y.o. male with history of atrial fibrillation not on anticoagulation and prior GI bleeding presents to the emergency department with critical ischemia of the left lower extremity. Patient developed significant pain in the left lower extremity earlier today and went to [facility] where it was determined that he had ischemia of the left lower extremity. Vascular surgery [facility] was contacted and he was transferred here in stable condition after receiving heparin. Vascular surgery did approach me prior to the patient's arrival in order to put in orders for the OR so he was arrived early on the board however did not show up till just after noon. Vascular surgery was consulted upon the patient's arrival and they have taken him to the OR in stable condition The visit findings, diagnosis, and care plan were discussed with the patient. The diagnosis and care plans discussions were outlined in the discharge instructions. The patient expressed understanding of the details of the visit, the return precautions and that he should return to the ER at any time for worsening symptoms, new symptoms, or other concerns. he agrees with the follow- up plan. Lc Harris PA 05/15/22 1328 Jaylene Esparza, RN - 05/15/2022 10:15 AM EDT Pt. Arrived in system by Lc TRIPP and Vascular surgery to write orders before pt. Arrival. Pt. Arrived at [facility] by EMS at 1150, vascular team at bedside documented in this encounter Miscellaneous Notes Consult Note - Radha Christy RN - 05/21/2022 12:43 PM EDT Koko Zamora was seen today by Cardiac Rehabilitation for: PCI, HFrEF Activity evaluation - Per PT Educational packet regarding CAD, cardiac risk factors, and managing angina given to the patient. Heart diagram reviewed. Koko is on the Vascular Surgery service for LLE limb ischemia, s/p femoral cutdown w/thromboembolectomy. Participation in an outpatient cardiac rehabilitation program at [facility] was discussed. Patient agrees to a referral to this program. Timing will depend on his recovery from Vascular surgery. He is going home w/[facility] PT. I gave him the brochure for the program at [facility] for future reference. Care Management Discharge - Judie López RN - 05/21/2022 12:38 PM EDT CARE MANAGEMENT FINAL DISCHARGE NOTE Chart reviewed, care reviewed with primary team and at interdisciplinary rounds. Patient is medically ready for discharge today. Needs for Transition of Care: Plan for discharge is: Home w/ Services Outpatient Agency/Support Group Needs: None Home Health Services: Registered Nurse, Physical Therapy, Occupational Therapy Agency Referrals & Follow-up Care: Contact information for follow-up Home Health & Hospice, [place] [address] [place] [address] Transportation: family or friend will provide Functional status prior to admission: Independent Home Environment: Others in the home: spouse, pet(s) (Vinicio Soriano). Current Living Arrangements: home/apartment/condo. Accessibility Concerns:4 step to enter. Current Functional Ability: DME used at home: commode chair, walker - rolling, raised toilet seat DME Needed at Discharge: none anticipated Patient is insured through: Primary Insurance: MEDICARE Payor: MEDICARE / Plan: MEDICARE PART A & B / Product Type: *No Product type* / Secondary Insurance: [facility] Prescription Coverage: Yes This plan was formulated with input from patient and team. All are in agreement with plan. IP RS has communicated with [place] - for initial IMM. RAlmita (Satish) DION López RN/CM - Cellphone: [phone] Pager: [phone] Covering Service RN/CM Plan of Care - Barbie Joyce RN - 05/20/2022 6:29 PM EDT OUTCOME EVALUATION NOTE: OUTCOME SUMMARY: Pt A&O x4, VSS on RA. Pt in a-fib with HR 90-100s, no events on remote telemetry. Heparin gtt infusing at 1200 units/hr, UFH in range. Pt reports minimal pain left groin site, Tylenol available PRN. Prevena VAC removed from groin site in am by Vascular team, DSD remains CDI. Left fasciotomy incisions well-approx w/windy, no drainage. +CMST BLE, palpable pedal pulses. Pt voiding adequate UOP. NoBM this shift. 1640 - pt off unit for cardiac catheterization, transferred in hospital bed accompanied by Staff Electrical Engineer RN, remains on telemetry monitoring. Heparin gtt turned off at time of transfer. 1825 - pt to transfer to ICCU 429 following cardiac cath, report given to DION Waldron. Family directedto ICCU locations, belongings gathered including glasses. PLAN MOVING FORWARD: Neurovasc/pulse checks Q4H Heparin gtt - next UFH 7/12 with am labs Bleeding precautions Remote telemetry, on at all times Pain management Discharge planning INDIVIDUALIZED FALL PREVENTION INTERVENTIONS: Patient-specific fall risk factors per assessment: [current deficits]: Pain, recent surgery, lines, bleeding px Assistance [level of assistance required for transfers and ambulation]: SBA FWW Supervision [direct monitoring required during toileting and ADLs]: Arms reach Surveillance [continuous indirect monitoring]: Masimo, remote telemetry, purposeful rounding Patient-specific fall prevention interventions for sensory deficits provided, if applicable: [X] N/A CPG GOAL OUTCOME EVALUATION: Care Management - Nataly Hodge RN - 05/20/2022 9:48 AM EDT OFFICE OF CARE MANAGEMENT PROGRESS NOTE LOS: Hospital Day 5 days Chart reviewed, care reviewed with primary team and at interdisciplinary rounds. Patient continues to meet inpatient level of care related to: Patient is going for a cardiac cath today. Functional status prior to admission: Independent Home Environment: Others in the home: spouse, pet(s) (Gladys- Christie). Current Living Arrangements: home/apartment/condo. Accessibility Concerns: 4 step to enter. Current Functional Ability: DME used at home: commode chair, walker - rolling, raised toilet seat DME Needed at Discharge: Patient is insured through: Primary Insurance: MEDICARE Payor: MEDICARE / Plan: MEDICARE PART A & B / Product Type: *No Product type* / Secondary Insurance: [facility] Last Physical Therapy Recommendation: home with home health, home with supervision with None Last Occupational Therapy Recommendation: with Plan for discharge is: Home w/ Services Outpatient Agency/Support Group Needs: None Home Health Services: Registered Nurse, Physical Therapy, Occupational Therapy Agency Referrals: I have met with the patient to: ?? discuss discharge planning needs. ?? provide the [facility], Office of Care Management letter from the [facility]er Laster pertaining to rehab referrals. ?? provide a letter describing our affiliations within the [facility] and educate about their right to choose where referrals are sent. ?? provide a list of Home Health Agencies / Durable Medical Equipment vendors which serve their preferred geographic area. ?? provided patient with [facility] Star Quality Rating handout. They have requested referrals to: [facility]. [address] [place] [address] Note routed to a Asphalt Roller Operator who will communicate referrals to facilities and provide any required information. Transportation: family or friend will provide Barriers to discharge: None Plan going forward: Patient is going for a cardiac cath today and plan will come from there. Patientwas recently seen by PT and they recommend VNA at time of discharge. [place] was routed and pendedat this time. Care Management will continue to follow and assist with discharge planning and coordination of care as indicated. Anticipated Date of Discharge: 05/21/2022 Nataly RICHMOND RN Phone: [phone] Pager: [phone] Plan of Care - Laney Atkins RN - 05/20/2022 3:19 AM EDT OUTCOME EVALUATION NOTE: OUTCOME SUMMARY: Koko has had a good night since arriving to floor. Sleeping between care. Hep gtt infusing via PIV. No c/o pain. Aware of plan for cardiac cath today. PLAN MOVING FORWARD: Cardiac cath today. Discharge planning. INDIVIDUALIZED FALL PREVENTION INTERVENTIONS: Patient-specific fall risk factors per assessment: [current deficits]: Recent surgery, lines/drains,weakness, mobility ai Assistance [level of assistance required for transfers and ambulation]: 1 assist with walker Supervision [direct monitoring required during toileting and ADLs]: hands on Surveillance [continuous indirect monitoring]: Purposeful rounding, masimo, call boo in reach Patient-specific fall prevention interventions for sensory deficits provided, if applicable: [X] N/A CPG GOAL OUTCOME EVALUATION: Consult Note - Jl Gutierrez MD - 05/17/2022 9:02 AM EDT Images from the original note were not included. Formerly [facility] [place] [address] [address] INPATIENT CARDIOLOGY CONSULT NOTE Date of Consultation: 05/17/2022 Admit Date: 05/15/2022 Hospital Day 2 days Reason for Consult: New afib Active Problems: Active Hospital Problems Diagnosis Limb ischemia Resolved Hospital Problems No resolved problems to display. HPI: Koko Zamora is a 81 y.o. male with a PMHx significant for MVP (s/p MV repair 2000), tobacco use, HLD, who presented to [facility] from OSH on 05/15 with acute limb ischemia of LLE and was found to be in atrial fibrillation. Patient had sudden onset LLE pain on 05/15 and presented to [facility], where he was started on heparin and transferred to [facility]. Upon arrival to [facility], patient was in atrial fib with RVR to the 140s. Patientreports having no palpitations or other symptoms aside from LLE pain at the time. Patient reports that prior to this episode, he did not have any dyspnea on exertion, palpitations, chest pain, orthopnea, lower extremity swelling. Patient states that he occasionally would get sharp flank pain, but it occurred randomly and did not change with exertion or position. On telemetry, patient in atrial fibrillation with HR ranging from 100-125BPM. He Transthoracic echo yesterday shows severely reduced LVEF 28%, with mildly decreased RV systolic function. Moderate aortic stenosis. Moderate and LV systolic dysfunction were new from 2011. No past medical history on file. Past Surgical History: Procedure Laterality Date IR BIOPSY SPINE 07/20/2019 IR Biopsy Spine 07/20/2019 Bobby Marshall MD [facility] INTERVENTIONL RAD IR VERTEBROPLASTY LUMBAR MULTIPLE LEVELS 07/20/2019 IR Vertebroplasty Lumbar Multiple Levels 07/20/2019 Bobby Marshall MD [facility] INTERVENTIONL RAD IR VERTEBROPLASTY THORACIC SINGLE LEVEL 10/25/2020 IR Vertebroplasty Thoracic Single Level 10/25/2020 Matt Chisholm MD [facility] INTERVENTIONL RAD PRO EMBLC/THRMBC FEMORAL POPLITEAL AORTO-ILIAC ARTERY Left 05/15/2022 EMBOLECTOMY OR THROMBECTOMY, FEMOROPOPLITEAL, AORTOILIAC ARTERY BY LEG INCISION (WRVU 19.48) performed by Fito Summers MD at [facility] MAIN OR Allergies Allergen Reactions Aspirin Other (See Comments) GI bleed Out-Patient Medications: Medications Prior to Admission Medication Sig Dispense Refill Last Dose fluorouraciL (EFUDEX) 5 % Cream daily. CRESTOR 40 mg Tablet Take 40 mg by mouth daily. fluticasone propionate (FLONASE) 50 mcg/actuation O'Brien, Suspension as needed. ascorbic acid, vitamin C, (VITAMIN C) 1,000 mg Tablet daily. sildenafil (VIAGRA) 100 mg Tablet Take 100 mg by mouth as needed for Erectile Dysfunction. carboxymethylcellulose (REFRESH PLUS) 0.5 % Dropperette Apply to eye 3 times daily as needed. calcium citrate (CALCITRATE) 200 mg (950 mg) Tablet Take 1 tablet by mouth daily. tamsulosin (FLOMAX) 0.4 mg Capsule Take 0.4 mg by mouth daily. ibuprofen (ADVIL;MOTRIN) 200 mg Tablet Take 200 mg by mouth every 6 hours as needed for Pain. MULTIVITAMIN (MULTIPLE VITAMIN ORAL) Take 1 tablet by mouth daily. In-Patient Medications: potassium chloride 10 mEq Intravenous Once lidocaine 25 mL Subcutaneous Once polyethylene glycoL (MIRALAX) oral powder 17 g Oral BID rosuvastatin 40 mg Oral QPM tamsulosin 0.4 mg Oral Daily sodium chloride 0.9 % (flush) 5 mL Intravenous BID PHENobarbitaL 0.24 mg/kg/dose ([place]) Oral BID Followed by [START ON 05/18/2022] PHENobarbitaL 0.12 mg/kg/dose ([place]) Oral BID thiamine 100 mg Oral Daily folic acid 1,000 mcg Oral Daily multivitamin with minerals 1 tablet Oral Daily heparin (porcine) infusion 1,200 Units/hr (05/17/22 4715) Family History: No family history on file. Social History: Social History Socioeconomic History Marital status: Spouse name: Not on file Number of children: Not on file Years of education: Not on file Highest education level: Not on file Occupational History Not on file Tobacco Use Smoking status: Current Some Day Smoker Packs/day: 0.50 Years: 50.00 Pack years: 25.00 Types: Cigarettes Smokeless tobacco: Never Used Vaping Use Vaping Use: Never used Substance and Sexual Activity Alcohol use: Yes Alcohol/week: 42.0 standard drinks Types: 42 Cans of beer per week Drug use: Not Currently Sexual activity: Not on file Other Topics Concern Not on file Social History Narrative Not on file Social Determinants of Health Financial Resource Strain: Not on file Food Insecurity: Not on file Transportation Needs: Not on file Physical Activity: Not on file Housing Stability: Not on file Review of Systems: 11 point ROS is either negative or per HPI Physical Exam: Last value Range last 8 hrs Temperature Temp: 37 ??C (98.6 ??F) Temp: [37 ??C (98.6 ??F)-37.1 ??C (98.8 ??F)] Heart Rate Heart Rate: 96 Heart Rate: -- Blood Pressure BP: 115/74 BP: (100-115)/(66-74) Respiratory Rate Resp: 18 Resp: [18] SpO2 SpO2: 92 % SpO2: [92 %] Intake/Output Summary (Last 24 hours) at 05/17/2022 0902 Last data filed at 05/17/2022 0742 Gross per 24 hour Intake 200 ml Output 2735 ml Net -2535 ml Wt & BMI By Encounter Date Flowsheet Row ED to Hosp-Admission (Current) from 05/15/[address] [place] [address] Office Visit from 04/17/2021 in [facility] at [facility] Weight 79.8 kg (175 lb 14.8 oz) 1 05/15/2022 1800 83.5 kg (184 lb) 1 04/17/2021 1450 BMI 26.97 1 05/15/2022 1800 -- General: Pleasant male in NAD Cardiac: RRR, S1/S2 of normal character and amplitude, systolic murmur, Respiratory: Adequate air entry throughout. No adventitious sounds Abdominal: Soft and non-tender with no organomegaly. Normal bowel sounds Extremities: LLE fasciotomy site, DP pulses palpable bilaterally, no edema Neurology: Without focal deficit Recent Labs 05/17/22 0333 05/16/22 0301 05/15/22 1200 WBC 10.4* 11.6* 9.4 HGB 12.0* 12.0* 14.5 HCT 36.4* 35.3* 42.4 PLATELET 149 151 209 Recent Labs 05/17/22 0333 05/16/22 0301 05/15/22 1200 NA 137 138 141 K 3.5 4.5 4.7 CL 102 108* 107 CO2 22 23 BUN 12 12 16 CREATININE 0.74* 0.66* 0.84 No results for input(s): AST, ALT, ALKPHOS, BILITOT, BILIDIR in the last 168 hours. Recent Labs 05/17/22 0333 05/16/22 0301 05/15/22 1200 CALCIUM 8.4* 8.2* 8.5 MAGNESIUM 0.76 0.77 -- PHOS -- 3.7 -- Recent Labs 05/15/22 1230 INR 1.1 PT 12.9* PTT 76* Recent Labs 05/15/22 1200 CK 87 No results found for: PROBNP Relevant imaging: ECG 05/16/2022: Echocardiogram 05/16/2022: Left ventricle is mildly dilated. Left ventricular systolic function is severely reduced. The left ventricular ejection fraction is 28% by Gaxiola's biplane. Right ventricular systolic function is mildly decreased. There is moderate aortic stenosis. The mean gradient across the aortic valve is 13mmHg.JUVENAL 1.2 cm2 S/P MV repair for prolapse. There is mild mitral regurgitation. Compared with the prior TTE of 09/03/2012, moderate and LV systolic dysfunction are new. CXR: 05/16/2022: Progression of groundglass opacities at the lower lobes. Progression of diffuse bronchovascular haziness and pulmonary vascular redistribution. No radiographic evident pleural effusion. No pneumothorax. Cardiomegaly. No displaced rib fracture. Assessment/Recommendations: Koko Zamora is a 81-year-old male, PMHx significant for HLD, MVP (s/p repair 2000), who presented with acute limb ischemia of the LLE in the context of newly discovered atrial fibrillation and TTE showing new LV dysfunction (LVEF 28%) and moderate . Patient's acute limb ischemia was likely caused by his atrial fibrillation without adequate anticoagulation. Patient has never been told he has atrial fibrillation, and was asymptomatic while at 140BPMin the ED. Patient's newly reduced LVEF could be multifactorial. Patient was asymptomatic in afib w/ RVR in theED, so tachymyopathy is possible. Patient likely also has coronary disease given significant risk factors and age. Patient does have new moderate and mild mitral regurgitation, but these are likely not significant contributing factors to this cardiomyopathy. Patient also with a history of alcohol use, which could also be playing a role. Patient will need atrial fibrillation control, ischemic evaluation, and guideline directed medical therapy. Patient does not endorse a significant afib or heart failure symptom burden. Patient would benefit from a rhythm control trial in the future, but will needto be anticoagulated (CHADSVASC 6) adequately prior to cardioversion. There is concern that patient's clot source may be left atrial apendage vs ventricular thrombus, this decision will affect decisionto use warfarin vs DOAC. #New onset afib -Currently tachycardic 105bpm -Currently getting PRN metoprolol 5mg for HR>110 -Start scheduled metoprolol tartrate 12.5mg BID -On heparin for AC. Favor using warfarin for anticoagulation given concern for potential ventricle thrombus. #HFrEF (LVEF 28%) -Cardiac catheterization for evaluation of coronary diseaes -IV diuresis -Follow-up with cardiac MRI to evaluate for LV thrombus -Obtain TSH -Initiate GDMT once stable after catheterization: -Start Valsartan 40mg BID -Continue rosuvastatin 40mg QD -SGLT2 initiation with outpatient Cardiology Case discussed with Dr. Marsha Gutierrez MD Internal Medicine, PGY1 05/17/2022 Associated attestation - Anne-Marie Larson MD - 05/17/2022 6:27 PM EDT Cardiology Attending Addendum: I have personally interviewed and examined the patient and reviewed appropriate data, including labs, ECGs and other diagnostic studies. I agree with the principal findings documented herein. The assessment and plan were formulated in discussion with me. 81-year-old male with a history of remote mitral valve repair, hyperlipidemia, and tobacco use who presented with acute limb ischemia found to have new atrial fibrillation with RVR, moderate aortic stenosis, and newly discovered heart failure with reduced ejection fraction. There was no thrombus noted in his left ventricle but the nidus for his acute limb ischemia could have been a ventricular thrombus that we are no longer visualizing. His atrial fibrillation could also cause a left atrial appendage clot which mobilized. Plan: -IV diuresis -Will need ischemic evaluation with cardiac catheterization -Would use Coumadin for anticoagulation given the possibility that this was an LV thrombus rather than an atrial fibrillation related thrombi. Cardiac MRI could be helpful to delineate the etiology of his cardiomyopathy, particularly if there is no significant coronary artery disease, and could also be used to get an additional evaluation for laminar thrombus. -Start valsartan 40 mg twice daily today with the intention to switch to Entresto if tolerated. - We will continue to follow Anne-Marie Larson MD Pager [phone] Clinic: [phone] 05/17/22 6:22 PM Initial Assessments - Ifrah Bell RN - 05/16/2022 10:54 AM EDT Office of Care Management Initial Assessment Ifrah Bell RN reviewed record and discussed patient with Care Team. Source of Information: Team, , medical record, and Chart Review, Patient, Spouse CM Introduced self/reviewed role; services accepted. Reason for Hospitalization: LLE pain Covid Vaccination Status: 1st, 2nd & booster (moderna x3) Last COVID test: non in chart Past medical History: No past medical history on file. Hospitalizations Within the Past 30 Days: no previous admission in last 30 days Current Decision-Making Capacity: Self Advance Care Planning: Attempt Cardiopulmonary Resuscitation - Inpatient <no information> -Advanced Directive: Yes, not on file Who is your DPOA-HC?: Spouse If AD's have not been completed spouse would be surrogate decision maker per [place] surrogate decision making law. (Only good for 180 days) Any patient receiving care at [facility] must abide by [place] law. The hierarchy for surrogate decision making [...] (i) The agent with financial power of trade mark attorney or a conservator appointed in accordance with RSA 464-A. (j) The guardian of the patient???s estate. Current Coping/Education/Information Needs: well informed Current Functional Ability: unable to assess Patient on bedrest Functional Status Prior to Admission: Independent Prior ADLs & IADLs: Independent with all ADLs & IADLs Home Environment: Others in the home: spouse, pet(s) (Gladys- Christie). Current Living Arrangements: home/apartment/condo. Accessibility Concerns:4 step to enter. Resource / Environmental Concerns: Resource/Environmental Concerns: none Current DME: commode chair, walker - rolling, raised toilet seat Home Address confirmed as: [facility] [facility] [place][note 2] [address] Social & Family Supports: All names listed below confirmed with patient as Incorrect. Will notify conifer to correct. Wifes address is same as and phone is [phone]. Extended Emergency Contact Information Primary Emergency Contact: Demarco Zamorana Address: [facility] [place] [address] [facility] Relation: Spouse Current Care Provided by: self Provides Primary Care For: no one Caregiver if needed: spouse, child(junaid), adult Quality of Family relationships: helpful, involved, supportive Community Resources being provided currently: none Behavioral Health History: denied Substance Use/Abuse listed: Social History Tobacco Use Smoking Status Current Some Day Smoker ??? Packs/day: 0.50 ??? Years: 50.00 ??? Pack years: 25.00 ??? Types: Cigarettes Smokeless Tobacco Never Used 0 No problems reported 1-2 Low level 3-5 Moderate level 6-8 Substantial level 9- 10 Severe level 0 to 7 points: Low risk 8 to 15 points: Medium risk 16 to 19 points: High risk 20 to 40 points: Addiction likely Other Pertinent/Service Specific Information: none Health/Prescription Coverage: Primary Insurance: MEDICARE Payor: MEDICARE / Plan: MEDICARE PART A & B / Product Type: *No Product type* / Secondary Insurance: [facility] Prescription Coverage: Yes Preferred Pharmacy: [id number] - [place], [place] - [address] [facility] [address] [facility] [place] [address] [id number] - [place], [place] - [address] [facility] [address] [facility] [address] [place] Status: Patient is a : unable to assess Primary Care Provider: Bobby Das MD [phone] Patient/Caregiver Goals of Treatment: to walk again Potential Needs for Transition of Care: none noted per 05/16 IDR Transportation: family will provide Transportation Anticipated: family or friend will provide Concerns to be Addressed: no discharge needs identified Assessment: Patient is admitted to vascular surg service for left lower extremity limb ischemia Plan: Per PT OT recommendations . Has used [facility] in the past. A member of the Care Management team will continue to monitor progress, follow for continuity of care and assist with transition of care planning. Ifrah Bell RN BSN Etiquette TeacherSong Writer of Care Management Pager [phone] Brief Op Note - Erin Garza MD - 05/15/2022 5:04 PM EDT Brief Operative Note Patient Name: Koko Zamora : [id number] MR#: [id number] Case Date: 05/15/2022 Surgeon: Surgeon(s) and Role: * Fito Summers MD - Primary * Erin Garza MD - Resident Preoperative diagnosis: Acute Limb Ischemia Postoperative diagnosis: Acute Limb Ischemia Procedures: Left common femoral transverse arteriotomy and primary repair Thromboembolectomy of the SFA, profunda, and common femoral artery Left lower extremity 4 compartment fasciotomies Anesthesia: General Findings: Palpable femoral pulse proximal common femoral artery. Clamp site distal to the circumflexarteries. Profunda and SFA controlled individually. Acute thrombus removed. 3, 4, and 5F miryam embolectomy with negative passes x 2. Arteriotomy closed with interrupted 5-0 sutures. Reperfusion venous drainage of 250cc via the femoral vein. Palpable DP pulse. 4 compartment fasciotomy performed with no bulging of muscle, healthy muscle. Complications: none Estimated Blood Loss: 650 mL* No values recorded between 05/15/2022 2:08 PM and 05/15/2022 4:12 PM * Specimens removed during surgery: None Fluids: Intraprocedure Crystalloid Total Intake Lactated Ringers 2500.00 mL Total Intake 2500 mL Output Urine Output 400 mL Blood Loss 650 mL Total Output 1050 mL Net Net Volume 1450 mL PRBCs: none (See Anesthesia Record/Report for Other Blood Products) Urine Output: 400 mL Drains: None Disposition: awakened from anesthesia, extubated and taken to the recovery room in a stable condition, having suffered no apparent untoward event. Condition: doing well without problems (Please see the Surgical Encounter Summary for any Implant and Specimen details pertinent to this patient.) Surgical Infection Prevention Bundle Used? Yes Infection present at time of surgery? No Pre-operative IV antibiotics: Ceftriaxone Op Note - Erin Garza MD - 05/15/2022 2:08 PM EDT [facility] Operative Note Patient Name: Koko Zamora : [id number] MR#: [id number] Case Date: 05/15/2022 Surgeon: Surgeon(s) and Role: * Fito Summers MD - Primary * Erin Garza MD - Resident Preoperative diagnosis: Acute Limb Ischemia Postoperative diagnosis: Acute Limb Ischemia Procedures: Left common femoral transverse arteriotomy and primary repair Thromboembolectomy of the right common and external iliac artery Thromboembolectomy of the SFA, profunda, and common femoral artery Reperfusion venous drainage of 250cc Left lower extremity 4 compartment fasciotomies Anesthesia: General Findings: Palpable femoral pulse proximal common femoral artery. Clamp site distal to the circumflexarteries. Profunda and SFA controlled individually. Acute thrombus removed. 3, 4, and 5F miryam embolectomy with negative passes x 2. Arteriotomy closed with interrupted 5-0 sutures. Reperfusion venous drainage of 250cc via the femoral vein. Palpable DP pulse. 4 compartment fasciotomy performed with no bulging of muscle, healthy muscle. Complications: none Estimated Blood Loss: 650 mL Specimens removed during surgery: None Fluids: Intraprocedure Crystalloid Total Intake Lactated Ringers 2500.00 mL Total Intake 2500 mL Output Urine Output 400 mL Blood Loss 650 mL Total Output 1050 mL Net Net Volume 1450 mL PRBCs: none (See Anesthesia Record/Report for Other Blood Products) Urine Output: 400 mL Drains: None Disposition: awakened from anesthesia, extubated and taken to the recovery room in a stable condition, having suffered no apparent untoward event. Condition: doing well without problems (Please see the Surgical Encounter Summary for any Implant and Specimen details pertinent to this patient.) Surgical Infection Prevention Bundle Used? Yes Infection present at time of surgery? No Pre-operative IV antibiotics: Ceftriaxone Description of Procedure: After informed consent was obtained the patient was brought back to the operating room and placed supine on the OR table. General anesthesia was induced and the patient was intubated with an ETT. Additional support lines (arterial line, PIVs) were placed. Preoperative antibiotics were given. A timeoutwas performed. Attention was then turned to the patient's left groin, which had been prepped and draped in the usual sterile fashion. A longitudinal incision overlying the anticipated region of the common femoral artery was created with a scalpel. Dissection was carried through soft tissue with electrocautery. The inguinal ligament was identified superiorly and the common femoral artery pulse was palpated. The femoral sheath was opened with electrocautery and metzenbaum scissors. It was quite thick and inflamed. There was a palpable pulse superiorly. The common femoral artery distal to the circumflex arteries, profunda and SFA were dissected free from surrounding tissues and encircled with vessel loops. The femoral vein was additionally dissected free from surrounding tissues and controlled with a vessel loop. Systemic heparin was administered for a goal ACT >300. The proximal common femoral artery, profunda and SFA were clamped. A transverse arteriotomy was created just cephalad to the bifurcation and acute thrombus was retrieved. A 5F miryam catheter was passed up the external and common iliac artery. There was the return of minimal thrombus, and then inflow was torrential. 4F miryam embolectomy was directed towards the SFA. Two clean passes were made. The 3F miryam catheter was directed to two branches of the profunda artery. There was thrombus removed from one of the branches and otherwise clean passes. There was excellent backbleeding from the SFA and profunda. The arteriotomy was repaired with several interrupted 5-0 prolene sutures. Prior to reperfusion of the leg, we performed venous drainage via the femoral vein. A 14 gauge angiocatheter was placed into the femoral vein and connected to extension tubing. A 50cc syringe was used to remove 250cc venous blood to minimize the physiologic effect of reperfusion on the cardiovascular system. The clamps were removed and there was a distal pulse in the common femoral and SFA. There was an excellent triphasic signal in the SFA and profunda. There was a palpable DP pulse. Protamine was administered and the groin incision was closed with multiple layers of 2-0, 3-0 vicryl sutures and the skin was closed reapproximated with windy. The groin incision was dressedwith a prevena wound vac. Attention was turned to the four compartment lower extremity fasciotomies. A medial incision was created 2cm posterior to the posterior crest of the tibia. Subcutaneous tissue was divided with electrocautery to expose the fascia. The intermuscular septum dividing the superficial and deep posterior compartments was identified and the fascia overlying each compartment was divided with electrocautery. Viable, non bulging muscle exposed in both compartments. The lateral incision was created lateral to the anterior tibial crest and electrocautery was used to divide the subcutaneous tissue down to the fascia. The intramuscular septum between the anterior and lateral compartments was identified and the fascia overlying each compartment divided, taking care to preserve the superficial peroneal nerve in the lateral compartment. Viable, non bulging muscle was exposed in both compartments. The wounds were left open and dressed with damp to dry 4x4, kerlix and sharyn. The patient was extubated and taken to the recovery room having suffered no apparent untoward event. Dr. Summers was present and scrubbed for the procedure. Associated attestation - Fito Summers MD - 05/22/2022 12:22 PM EDT Attestation: Case Date: 05/20/2022 I was present and I participated during the entire procedure (does not need to include opening and closing). Fito Summers MD 05/22/2022 documented in this encounter Plan of Treatment Upcoming Encounters Date Type Specialty Care Team Description 07/02/2022 Office Visit Vascular Surgery Jing Ghosh, MANAGER MECHANICAL MAINTENANCE [facility] ER VASCULAR SURGERY [place], [place] [address] (Wo rk) 09/02/2022 Clinical Support Dermatology Thai Lynn MD [facility] DR JENNY [facility]ILL[facility]MAT [place], [place] [address] (Wo rk) 09/02/2022 Procedure visit Dermatology Jace Lynn MD [facility] DR JENNY [place]ILL[place], [place] [address] (Wo rk) 09/05/2022 Appointment Cardiology Trinity Reid MD [facility] CARDIOLOGY [place], [place] [address] (Wo rk) 09/05/2022 Office Visit Cardiology Trinity Reid MD [facility] CARDIOLOGY [place], [place] [address] (Wo rk) Scheduled Referrals Name Type Priority Associated Diagnoses Order S chedule Referral to Home Outpatient Referral Routine Limb ischemia Ord ered: Health 05/21/2022 Referral to Outpatient Referral Routine HFrEF (heart failure Ordered: Cardiology with reduced ejection 2021 fraction) Paroxysmal atrial fibrillation Referral to Smoking Outpatient Referral Routine Non-ST elevati on Ordered: Cessation Program myocardial infarction 0 05/21/2022 (NSTEMI) Limb ischemia documented as of this encounter Procedures Procedure Name Priority Date/Time Associated Comments Diagnosis HC UNFRACTIONATED Routine 05/21/2022 12:35 Result s for this HEPARIN (HEP UFH) PM EDT procedure are in the results section. HEMOGRAM Routine 05/21/2022 6:15 Results for this AM EDT procedure are i n the results section. DIFFERENTIAL, AUTOMATED Routine 05/21/2022 6:15 R esults for this AM EDT procedure are i n the results section. HC CBC,PLT & AUTO DIFF Routine 05/21/2022 6:15 AM EDT EKG 12-LEAD STAT 05/20/2022 7:04 Non-ST elevation Results for this PM EDT myocardial procedure are i n infarction (NSTEMI) the resu lts section. CARDIAC CATHETERIZATION Routine 05/20/2022 6:45 R esults for this PM EDT procedure are i n the results section. POCT GLUCOSE Routine 05/20/2022 5:42 Results for this PM EDT procedure are i n the results section. HC VENIPUNCTURE STAT 05/20/2022 10:50 Results for this AM EDT procedure are i n the results section. HC UNFRACTIONATED Routine 05/20/2022 5:02 Results for this HEPARIN (HEP UFH) AM EDT procedure are in the results section. HEMOGRAM Routine 05/20/2022 5:02 Results for this AM EDT procedure are i n the results section. DIFFERENTIAL, AUTOMATED Routine 05/20/2022 5:02 R esults for this AM EDT procedure are i n the results section. HC VENIPUNCTURE Routine 05/20/2022 5:02 AM EDT HC UNFRACTIONATED Routine 05/19/2022 3:26 Results for this HEPARIN (HEP UFH) AM EDT procedure are in the results section. HEMOGRAM Routine 05/19/2022 3:26 Results for this AM EDT procedure are i n the results section. DIFFERENTIAL, AUTOMATED Routine 05/19/2022 [...] are in the results section. HEMOGRAM Routine 05/18/2022 3:34 Results for this AM EDT procedure are i n the results section. DIFFERENTIAL, AUTOMATED Routine 05/18/2022 3:34 R esults for this AM EDT procedure are i n the results section. HC CBC,PLT & AUTO DIFF Routine 05/18/2022 3:34 AM EDT HEMOGRAM Routine 05/17/2022 3:33 Results for this AM EDT procedure are i n the results section. DIFFERENTIAL, AUTOMATED Routine 05/17/2022 3:33 R esults for this AM EDT procedure are i n the results section. HC VENIPUNCTURE Routine 05/17/2022 3:33 AM EDT MAGNESIUM Routine 05/17/2022 3:33 Results for this AM EDT procedure are i n the results section. BASIC METABOLIC PANEL Routine 05/17/2022 3:33 Res ults for this (NON-FASTING) AM EDT procedure are in the results section. URINALYSIS MICROSCOPIC STAT 05/16/2022 11:15 R esults [...] section. EKG 12-LEAD STAT 05/16/2022 8:57 Atrial Results for this PM EDT fibrillation, procedure are in unspecified type the results section. HC UNFRACTIONATED Routine 05/16/2022 4:34 Results for this HEPARIN (HEP UFH) PM EDT procedure are in the results section. ECHOCARDIOGRAM COMPLETE Routine 05/16/2022 12:49 Atrial Results for this W CONTRAST PM EDT fibrillation, procedure are in unspecified type the results section. HEMOGRAM Routine 05/16/2022 3:01 Results for this AM EDT procedure are i n the results section. DIFFERENTIAL, AUTOMATED Routine 05/16/2022 3:01 R esults for this AM EDT procedure are i n the results section. HC CBC,PLT & AUTO DIFF Routine 05/16/2022 3:01 AM EDT HC PHOSPHORUS, SERUM Routine 05/16/2022 3:01 Resu lts for this AM EDT procedure are i n the results section. HC MAGNESIUM, SERUM Routine 05/16/2022 3:01 Resul ts for this AM EDT procedure are i n the results section. BASIC METABOLIC PANEL Routine 05/16/2022 3:01 Res ults for this (NON-FASTING) AM EDT procedure are in the results section. BLOOD GAS 2 ARTERIAL Routine 05/15/2022 3:33 Resu lts for this PM EDT procedure are i n the results section. BLOOD GAS 2 ARTERIAL Routine 05/15/2022 2:06 Resu lts for this PM EDT procedure are i n the results section. EMBOLECTOMY OR 05/15/2022 1:20 Acute Limb Ischemia THROMBECTOMY, PM EDT FEMOROPOPLITEAL, AORTOILIAC ARTERY BY LEG INCISION (WRVU 19.48) HC PARTIAL STAT 05/15/2022 12:30 Results for this THROMBOPLASTIN TIME PM EDT procedur e are in the results section. HC PROTHROMBIN TIME STAT 05/15/2022 12:30 Resu lts for this PM EDT procedure are i n the results section. GOLD TUBE HOLD Routine [...] AUTO DIFF STAT 05/15/2022 12:00 PM EDT ANTIBODY SCREEN STAT 05/15/2022 12:00 Results for this PM EDT procedure are i n the results section. HC ANTIBODY STAT 05/15/2022 12:00 DETECTION,CAPTURE-R PM EDT CK STAT 05/15/2022 12:00 Results for this PM EDT procedure are i n the results section. BASIC METABOLIC PANEL STAT 05/15/2022 12:00 Re sults for this (NON-FASTING) PM EDT procedure are in the results section. EMBOLECTOMY/THROMBECT, Routine 05/15/2022 10:42 FEMOROPOPLITEAL, AM EDT AORTOILIAC ARTERY BY LEG INCIS documented in this encounter Results JOSSELYN, legs, multiple levels (06/13/2022 7:13 AM EDT) Component Value Ref Test Analysis Performed At [facility] Range Method Time Signature VB Text Department: Vascular Surgery Lab VASCUBASE Report Patient: [id number] (KOKO ZAMORA) CPT: 99936 Referring Physician: FITO SUMMERS ?? 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 Diabetes mellitus: no Findings: Right ?Pressure [...] Address City/State/ZIP Code Phon e Number VASCUBASE [place] 48 Hrs-15 Days (05/21/2022 4:33 PM [...] response Fito Summers MD CARDIAC SERVICES ORDERABLES Heparin (unfractionated) Level (05/21/2022 12:35 PM EDT) P athologist Signature Heparin UFH 0.42 IU/mL [facility] LABORATORY Comment: Heparin (anti-Xa) levels should be [...] (Source) Location / / Volume Laterality Blood 05/21/2022 12:35 05/21/2022 PM EDT 12:43 PM EDT Resulting Agency Comment Spec In Lab Fito Summers MD HEMATOLOGY ORDERABLES Performing Organization Address City/State/[place] [address] Differential, Automated (05/21/2022 6:15 AM EDT) P athologist Signature Neutrophils % 58.8 % [facility] LABORATORY Neutr Abs (ANC) 3.97 1.70 - [facility] 6.10 [facility] x10(3)/[facility] LABORATORY Lymphocytes % 25.2 % [facility] LABORATORY Lymphocytes Abs 1.7 0.9 - 3.2 [facility] x10(3)/[facility] LABORATORY Monocytes % 12.9 % [facility] LABORATORY Monocyte Abs 0.9 0.3 - 0.9 [facility] x10(3)/[facility] LABORATORY Eosinophils % 2.1 % [facility] LABORATORY Eosinophils Abs 0.1 0.0 - 0.4 [facility] x10(3)/[facility] LABORATORY Basophils % 0.4 % [facility] LABORATORY Basophils Abs 0.0 0.0 - 0.1 [facility] x10(3)/[facility] LABORATORY Immature Gran % 0.60 % [facility] LABORATORY Comment: Immature granulocytes(IG's)percentage an d absolute count will include metamyelocytes, myelocytes, and promyelo cytes. Blood smears from CBCs yielding IG's will be scanned manually for concor dance. If this scan disagrees with the automated IG or if promyelocytes are not ed, a manual differential will be performed. Rain Gran Abs 0.04 0.00 - 0.04 x10(3)/[facility] LABORATORY Specimen Anatomical Collection Method Collection Time Receive d Time (Source) Location / / Volume Laterality Blood 05/21/2022 6:15 AM 6:38 EDT AM EDT Resulting Agency Comment Spec In Lab Edward Rodríguez MD HEMATOLOGY ORDERABLES Performing Organization Address City/State/[place] [address] (ABNORMAL) Hemogram (05/21/2022 6:15 AM EDT) [facility] gist Method Time Signature WBC 6.8 4.0 - 9.5 [facility] x10(3)/[facility] LABORATORY RBC 3.59 (L) 4.58 - [facility] 5.54 [facility] x10(6)/[facility] LABORATORY Hemoglobin 11.8 (L) 13.7 - [facility] 16.[facility] g/dL [facility] LABORATORY Hematocrit 34.5 (L) 40.5 - [facility] 48.5 % [facility] LABORATORY MCV 96.1 (H) 82.9 - [facility] 93.1 [facility] LABORATORY MCH 32.9 (H) 27.5 - [facility] XIAO 32.1 pg [facility] LABORATORY MCHC 34.2 32.0 - [facility] 35.7 g/dL [facility] LAB[facility]ATORY Platelets 198 145 - 357 [facility] x10(3)/[facility] LABORATORY RDWSD 44.9 36.0 - [facility] 45.0 [facility] RDWCV 12.6 11.4 - [facility] 13.8 % [facility] LABORATORY MPV 10.0 7.6 - 12.9 [facility] LABORATORY nRBC % Auto 0.3 % [facility] LABORATORY nRBC Abs Auto 0.020 (H) 0.000 - [facility] 0.000 [facility] x10(3)/[facility] LABORATORY Specimen Anatomical Collection Method Collection Time Receive d Time (Source) Location / / Volume Laterality Blood 05/21/2022 6:15 AM 6:38 EDT AM EDT Resulting Agency Comment Spec In Lab Edward Rodríguez MD HEMATOLOGY ORDERABLES Performing Organization Address City/[facility]/[place] [address] EKG 12 Lead (05/20/2022 7:04 PM EDT) Component Value Ref Range Test Analysis Performed Pathologis t Method Time At Signature Ventricular rate 101 BPM MUSE SYSTEM QRS Duration 116 ms MUSE SYSTEM Q-T Interval 378 ms MUSE SYSTEM QTC Calculated 490 ms MUSE SYSTEM (Bezet) Calculated R [place] -53 degrees MUSE SYSTEM Calculated T [place] 101 degrees MUSE SYSTEM INTERPRETATION Atrial fibrillation with rapid ventricular response MUSE SYSTEM Left anterior fascicular block Nonspecific ST and T wave abnormality Abnormal ECG When compared with ECG of 16-MAY-2022 20:57, No significant change was found Confirmed by MD Juli, Damian ([id number]) on 05/21/2022 1:14:51 PM Specimen Anatomical Collection Method Collection Time Receive d Time (Source) Location / / Volume Laterality 05/20/2022 7:04 PM 1:14 EDT PM EDT Fito Summers MD ECG ORDERABLES Performing Organization Address City/[facility]/ZIP Code Phon e Number MUSE SYSTEM CARDIAC CATHETERIZATION (05/20/2022 6:45 PM EDT) Specimen (Source) Anatomical Location Collection Method / Collectio n Time Received Time / Laterality Volume Narrative CARDIOMAC SYSTEM - 05/20/2022 7:09 PM ED T ?[facility] ? Cardiac Cathete rization/Intervention Report ? Patient Name: Koko Zamora. ? Procedure Date: 05/20/2022 ? A #: [id number] ? Primary Physician: Abundio Servin ? Case #: [id number] ? File Name: [id number] ? Catheterization Order Number: [id number] ? [facility] ? Final Report [place], [place] ? Patient Name: ? Koko Sullivan. Klarissa uson ? ID#: ?[id number] ? : ?1940 ? Procedure Date: ? May 20, 2022 ?Case #: ? Room: ? 1 ? Case Physician: ? Abundio roldan, M.D. ? Start: ?17:16 ? Admission: ??05/15/2022 ? Referring Physician: ??Julee Malik ? Procedures: ?* Coronary Angiography ?* Left Heart Catheterization ?* Coronary Ultrasound ?* Coronary Angioplasty ?* Coronary Stent Insertion ? History ?Koko Zamora is a 81 year old man. He [...] enrique gnated as ASA Class IV. The HA clinical ?frailty scale is 3: Managing We [...] procedure was Urgent. The indication for ?the metallurgical laboratory assistant visit is cardiomyo nita. Chest pain symptom [...] ?3.5 guiding catheter and a 3.5 Fr [facility] [address] ??20 Mhz. ??Imaging ?was successful. ??Image [...] insertion. This was ? the culprit les jud. A guidewire was placed across this lesion. [...] premounted 2. 75 x 30 mm Rudy Phoenix (AMPARO) was deployed ? with a maximum [...] may require ?modification of this regimen. C [facility] Interventional Cardiology for ?questions. ?The 1 year [...] coronary, angioplasty-coronary and stent ?insertion-coronary. ? Abundio S Malathi, M.D. ? Electronically Signed by: Abundio De León in, M.D. ? Report Finalized: 05/20/2022 ??19:01 ? Abundio Servin MD CARDIAC CATH ORDERABLES Performing Organization Address City/State/ZIP Code Phon e Number CARDIOMAC SYSTEM POCT Glucose (05/20/2022 5:42 PM EDT) P athologist Signature POC Glucose 123 65 - 199 [facility] mg/dL [facility] LABORATORY Comment: Supplemental ranges: <140 mg/dL before meals <180 mg/dL all other times of the day Specimen Anatomical Collection Method Collection Time Receive d Time (Source) Location / / Volume Laterality Blood 05/20/2022 5:42 PM 5:42 EDT PM EDT Fito Summers MD POINT OF CARE TEST ORDERABLE S Performing Organization Address City/State/[place] [address] (ABNORMAL) BMP w/fasting Glucose (05/20/2022 10:50 AM EDT) P athologist Signature Glucose 152 (H) 65 - 99 [facility] XIAO Fasting mg/dL [facility] LABOR[facility]ORY Comment: ?Fasting* Glucose Interpretive C riteria [...] of Diabetes Mellitus, Position Statement from the [place] [employer]. ??Diabete s Care, Volume 33, Supplement 1, Nov 2009 BUN 11 10 - 20 mg/dL [facility] LAB[facility] Creatinine 0.63 (L) 0.80 - 1.50 mg/dL [facility] LABOR[facility]ORY Sodium 137 135 - 145 mmol/L [facility] LAB[facility] Potassium 3.6 3.5 - 5.0 mmol/L [facility] LAB[facility] Comment: Please note: ??Patients with WBC >100,00 0 may have falsely elevated Potassium levels. ??For accurate Potassium quantif ication in these patients send serum separator tube (gold top) for subsequent determinations. ??Contact the Clinical Chemistry Laboratory if there are any qu estions. Chloride 103 98 - 107 mmol/L [facility] LAB[facility] CO2 24 22 - 31 mmol/L [facility] Anion Gap 10 5 - 15 mmol/L [facility] Calcium 8.7 8.5 - 10.5 mg/dL [facility] LAB[facility] Estimated GFR 97 >=60 mL/min/1.73 m?? [facility] LABORATORY [...] Summers MD CHEMISTRY ORDERABLES Performing Organization Address City/[facility]/[place] [address] Heparin (unfractionated) Level (05/20/2022 5:02 AM EDT) P athologist Signature Heparin UFH 0.57 IU/mL [facility] LABORATORY Comment: Heparin (anti-Xa) levels should be [...] Location / / Volume Laterality Blood 05/20/2022 5:02 AM 5:19 EDT AM EDT Resulting Agency Comment Spec In Lab Fito Summers MD HEMATOLOGY ORDERABLES Performing Organization Address City/[facility]/ZIP Code Phon e Number [address] (ABNORMAL) Differential, Automated (05/20/2022 5:02 AM EDT) Patholo gist Method Time Signature Neutrophils % 58.1 % [facility] LABORATORY Neutr Abs (ANC) 4.52 1.70 - [facility] 6.10 [facility] x10(3)/[facility] LABORATORY Lymphocytes % 24.1 % [facility] LABORATORY Lymphocytes Abs 1.9 0.9 - 3.2 [facility] x10(3)/[facility] LABORATORY Monocytes % 13.8 % [facility] LABORATORY Monocyte Abs 1.1 (H) 0.3 - 0.9 [facility] x10(3)/[facility] LABORATORY Eosinophils % 2.6 % [facility] LABORATORY Eosinophils Abs 0.2 0.0 - 0.4 [facility] x10(3)/[facility] LABORATORY Basophils % 0.8 % [facility] LABORATORY Basophils Abs 0.1 0.0 - 0.1 [facility] x10(3)/[facility] LABORATORY Immature Gran % 0.60 % [facility] LAB[facility]ATORY Comment: Immature granulocytes(IG's)percentage an d absolute count will include metamyelocytes, myelocytes, and promyelo cytes. Blood smears from CBCs yielding IG's will be scanned manually for concor dance. If this scan disagrees with the automated IG or if promyelocytes are not ed, a manual differential will be performed. Rain Gran Abs 0.05 (H) 0.00 - 0.04 x10(3)/[facility] LABORATORY Specimen Anatomical Collection Method Collection Time Receive d Time (Source) Location / / Volume Laterality Blood 05/20/2022 5:02 AM 5:19 EDT AM EDT Resulting Agency Comment Spec In Lab Edward Rodríguez MD HEMATOLOGY ORDERABLES Performing Organization Address City/State/[place] [address] (ABNORMAL) Hemogram (05/20/2022 5:02 AM EDT) Analysis Performed At Patho logist Time Signature WBC 7.8 4.0 - 9.5 [facility] x10(3)/[facility] LABORATORY RBC 3.53 (L) 4.58 - [facility] 5.54 [facility] x10(6)/[facility] LABORATORY Hemoglobin 11.4 (L) 13.7 - [facility] 16.5 g/dL [facility] LABORATORY Hematocrit 34.3 (L) 40.5 - [facility] 48.5 % [facility] MCV 97.2 (H) 82.9 - [facility] 93.1 fL [facility] MCH 32.3 (H) 27.5 - [facility] 32.1 pg [facility] LAB[facility] MCHC 33.2 32.0 - [facility] 35.7 g/dL [facility] LABORATORY Platelets 181 145 - 357 [facility] x10(3)/[facility] LABORATORY RDWSD 46.4 (H) 36.0 - [facility] 45.0 [facility] LABORATORY RDWCV 13.0 11.4 - [facility] 13.8 % [facility] LABORATORY MPV 10.4 7.6 - 12.9 [facility] LABORATORY nRBC % Auto 0.0 % [facility] LABORATORY nRBC Abs Auto 0.000 0.000 - [facility] 0.000 [facility] x10(3)/[facility] LABORATORY Specimen Anatomical Collection Method Collection Time Receive d Time (Source) Location / / Volume Laterality Blood 05/20/2022 5:02 AM 2 5:19 EDT AM EDT Resulting Agency Comment Spec In Lab Edward Rodríguez MD HEMATOLOGY ORDERABLES Performing Organization Address City/State/[place] [address] Heparin (unfractionated) Level (05/19/2022 3:26 AM EDT) P athologist Signature Heparin UFH 0.59 IU/mL [facility] LABORATORY Comment: Heparin (anti-Xa) levels should be [...] (Source) Location / / Volume Laterality Blood 05/19/2022 3:26 AM 2 3:59 EDT AM EDT Resulting Agency Comment Spec In Lab Fito Summers MD HEMATOLOGY ORDERABLES Performing Organization Address City/State/[place] [address] (ABNORMAL) Differential, Automated (05/19/2022 3:26 AM EDT) [facility] Method Time Signature Neutrophils % 62.1 % [facility] LABORATORY Neutr Abs (ANC) 4.59 1.70 - [facility] 6.10 [facility] x10(3)/[facility] LABORATORY Lymphocytes % 22.1 % [facility] LAB[facility]ORY Lymphocytes Abs 1.6 0.9 - 3.2 [facility] x10(3)/[facility] LABORATORY Monocytes % 13.5 % [facility] LAB[facility]ORY Monocyte Abs 1.0 (H) 0.3 - 0.9 [facility] [facility] x[facility] LABORATORY Eosinophils % 1.3 % [facility] LABORATORY Eosinophils Abs 0.1 0.0 - 0.4 [facility] x10(3)/[facility] LABORATORY Basophils % 0.5 % [facility] LABORATORY Basophils Abs 0.0 0.0 - 0.1 [facility] x10(3)/[facility] LABORATORY Immature Gran % 0.50 % [facility] LABORATORY Comment: Immature granulocytes(IG's)percentage an d absolute count will include metamyelocytes, myelocytes, and promyelo cytes. Blood smears from CBCs yielding IG's will be scanned manually for concor dance. If this scan disagrees with the automated IG or if promyelocytes are not ed, a manual differential will be performed. Rain Gran Abs 0.04 0.00 - 0.04 x10(3)/[facility] LABORATORY Specimen Anatomical Collection Method Collection Time Receive d Time (Source) Location / / Volume Laterality Blood 05/19/2022 3:26 AM 3:59 EDT AM EDT Resulting Agency Comment Spec In Lab Edward Rodríguez MD HEMATOLOGY ORDERABLES Performing Organization Address City/[facility]/[place] [address] (ABNORMAL) Hemogram (05/19/2022 3:26 AM EDT) Analysis Performed At Patho logist Time Signature WBC 7.4 4.0 - 9.5 [facility] x10(3[facility] LABORATORY RBC 3.74 (L) 4.58 - [facility] [place] 5.54 [facility] x10(6)/[facility] LABORATORY Hemoglobin 12.1 (L) 13.7 - [facility] X[facility] 16.5 g/dL [facility] LABORATORY Hematocrit 36.4 (L) 40.5 - [facility] 48.5 % [facility] LABORATORY MCV 97.3 (H) 82.9 - [facility]1 [facility] LABORATORY MCH 32.4 (H) 27.5 - [facility] 32.1 pg [facility] LABORATORY MCHC 33.2 32.0 - [facility] 35.7 g/dL [facility] LABORATORY Platelets 168 145 - 357 [facility] x10(3)/[facility] LABORATORY RDWSD 46.9 (H) 36.0 - [facility] 45.0 [facility] LABORATORY RDWCV 13.0 11.4 - [facility] 13.8 % [facility] LABORATORY MPV 10.5 7.6 - 12.9 [facility] LABORATORY nRBC % Auto 0.0 % [facility] LABORATORY nRBC Abs Auto 0.000 0.000 - [facility] 0.000 [facility] x10(3)/[facility] LABORATORY Specimen Anatomical Collection Method Collection Time Receive d Time (Source) Location / / Volume Laterality Blood 05/19/2022 3:26 AM 3:59 EDT AM EDT Resulting Agency Comment Spec In Lab Edward Rodríguez MD HEMATOLOGY ORDERABLES Performing Organization Address City/State/[place] [address] TSH (05/18/2022 8:00 PM EDT) P athologist Signature TSH 2.27 0.27 - 4.20 [facility] HAGEN mcIU/mL [facility] LABORATORY Comment: Reference Interval (mcIU/mL): Females: ??First Trimester: 0.23-3.88 ??Second Trimester: 0.22-3.90 ??Third Trimester: 0.44-4.66 Specimen Anatomical Collection Method Collection Time Receive d Time (Source) Location / / Volume Laterality Blood 05/18/2022 8:00 PM 8:06 EDT PM EDT Resulting Agency Comment Spec In Lab Fito Summers MD CHEMISTRY ORDERABLES Performing Organization Address City/State/[place] [address] (ABNORMAL) Differential, Automated (05/18/2022 3:34 AM EDT) [facility] gist Method Time Signature Neutrophils % 67.2 % [facility] LABORATORY Neutr Abs (ANC) 5.89 1.70 - [facility] 6.10 [facility] x10(3)/[facility] LABORATORY Lymphocytes % 17.1 % [facility] LABORATORY Lymphocytes Abs 1.5 0.9 - 3.2 [facility] x10(3)/[facility] LABORATORY Monocytes % 13.6 % [facility] LABORATORY Monocyte Abs 1.2 (H) 0.3 - 0.9 [facility] x10(3)/[facility] LABORATORY Eosinophils % 1.0 % [facility] LABORATORY Eosinophils Abs 0.1 0.0 - 0.4 [facility] x10(3)/[facility] LABORATORY Basophils % 0.6 % [facility] LABORATORY Basophils Abs 0.0 0.0 - 0.1 [facility] x10(3)/[facility] LABORATORY Immature Gran % 0.50 % [facility] LABORATORY Comment: Immature granulocytes(IG's)percentage an d absolute count will include metamyelocytes, myelocytes, and promyelo cytes. Blood smears from CBCs yielding IG's will be scanned manually for concor dance. If this scan disagrees with the automated IG or if promyelocytes are not ed, a manual differential will be performed. Rain Gran Abs 0.04 0.00 - 0.04 x10(3)/[facility] LABORATORY Specimen Anatomical Collection Method Collection Time Receive d Time (Source) Location / / Volume Laterality Blood 05/18/2022 3:34 AM 2 3:48 EDT AM EDT Resulting Agency Comment Spec In Lab Edward Rodríguez MD HEMATOLOGY ORDERABLES Performing Organization Address City/State/[place] [address] (ABNORMAL) Hemogram (05/18/2022 3:34 AM EDT) Analysis Performed At Patho logist Time Signature WBC 8.8 4.0 - 9.5 [facility] x10(3[facility] LABORATORY RBC 3.45 (L) 4.58 - [facility] 5.54 [facility] x10(6)/[facility] LABORATORY Hemoglobin 11.2 (L) 13.7 - [facility] 16.5 g/dL [facility] LABORATORY Hematocrit 33.0 (L) 40.5 - [facility] 48.5 % [facility] LABORATORY MCV 95.7 (H) 82.9 - [facility] 93.1 [facility] LABORATORY MCH 32.5 (H) 27.5 - [facility] 32.1 pg [facility] LABORATORY MCHC 33.9 32.0 - [facility] 35.7 g/dL [facility] LABORATORY Platelets 130 (L) 145 - 357 [facility] x10(3)/[facility] LABORATORY RDWSD 46.2 (H) 36.0 - [facility] 45.0 [facility] LABORATORY RDWCV 13.2 11.4 - [facility] 13.8 % [facility] LABORATORY MPV 10.8 7.6 - 12.9 [facility] LABORATORY nRBC % Auto 0.0 % [facility] LABORATORY nRBC Abs Auto 0.000 0.000 - [facility] 0.000 [facility] x10(3)/[facility] LABORATORY Specimen Anatomical Collection Method Collection Time Receive d Time (Source) Location / / Volume Laterality Blood 05/18/2022 3:34 AM 2 3:48 EDT AM EDT Resulting Agency Comment Spec In Lab Edward Rodríguez MD HEMATOLOGY ORDERABLES Performing Organization Address City/State/ZIP Code [place] [address] Heparin (unfractionated) Level (05/18/2022 3:34 AM EDT) athologist [facility] Heparin UFH 0.59 IU/mL [facility] LABORATORY Comment: Heparin (anti-Xa) levels should be [...] Location / / Volume Laterality Blood 05/18/2022 3:34 AM 3:48 EDT AM EDT Resulting Agency Comment Spec In Lab Fito Summers MD HEMATOLOGY ORDERABLES Performing Organization Address City/State/[place] [address] Magnesium (05/17/2022 3:33 AM EDT) athologist [facility] Magnesium 0.76 0.69 - 1.07 [facility] mmol/L [facility] LABORATORY Specimen Anatomical Collection Method Collection Time Receive d Time (Source) Location / / Volume Laterality Blood Venous Draw / 05/17/2022 3:33 AM 05/17/20 4:05 Unknown EDT AM EDT Resulting Agency Comment Spec In Lab Dottie Hill APRN CHEMISTRY ORDERABLES Performing Organization Address City/State/ZIP Code Phon e Number [address] (ABNORMAL) Basic Metabolic Panel (non-fasting) (05/17/2022 3:33 AM EDT) athologist [facility] Glucose Lvl 158 65 - 199 [facility] mg/dL [facility] LABORATORY Comment: Diabetes: >=200 mg/dL plus symp toms BUN 12 10 - 20 mg/dL [facility] LABORATORY Creatinine 0.74 (L) 0.80 - 1.50 mg/dL [facility] LABORATORY Sodium 137 135 - 145 mmol/L [facility] LABORATORY Potassium 3.5 3.5 - 5.0 mmol/L [facility] LABORATORY Comment: Please note: ??Patients with WBC >100,00 0 may have falsely elevated Potassium levels. ??For accurate Potassium quantif ication in these patients send serum separator tube (gold top) for subsequent determinations. ??Contact the Clinical Chemistry Laboratory if there are any qu estions. Chloride 102 98 - 107 mmol/L [facility] LABORATORY CO2 25 22 - 31 mmol/L [facility] LABORATORY Anion Gap 10 5 - 15 mmol/L [facility] LABORATORY Calcium 8.4 (L) 8.5 - 10.5 mg/dL [facility] LABORATORY Estimated GFR 92 >=60 mL/min/1.73 m?? [facility] LABORATORY [...] (Source) Location / / Volume Laterality Blood 05/17/2022 3:33 AM 2 3:53 EDT AM EDT Resulting Agency Comment Spec In Lab Fito Summers MD CHEMISTRY ORDERABLES Performing Organization Address City/State/[place] [address] (ABNORMAL) Differential, Automated (05/17/2022 3:33 AM EDT) [facility] gist Method Time Signature Neutrophils % 65.5 % [facility] LABORATORY Neutr Abs (ANC) 6.84 (H) 1.70 - [facility] 6.10 [facility] x10(3)/[facility] LABORATORY Lymphocytes % 19.7 % [facility] LABORATORY Lymphocytes Abs 2.1 0.9 - 3.2 [facility] x10(3)/[facility] LABORATORY Monocytes % 13.1 % [facility] LABORATORY Monocyte Abs 1.4 (H) 0.3 - 0.9 [facility] x10(3)/[facility] LABORATORY Eosinophils % 0.6 % [facility] LABORATORY Eosinophils Abs 0.1 0.0 - 0.4 [facility] x10(3)/[facility] LABORATORY Basophils % 0.6 % [facility] LABORATORY Basophils Abs 0.1 0.0 - 0.1 [facility] x10(3)/[facility] LABORATORY Immature Gran % 0.50 % [facility] LABORATORY Comment: Immature granulocytes(IG's)percentage an d absolute count will include metamyelocytes, myelocytes, and promyelo cytes. Blood smears from CBCs yielding IG's will be scanned manually for concor dance. If this scan disagrees with the automated IG or if promyelocytes are not ed, a manual differential will be performed. Rain Gran Abs 0.05 (H) 0.00 - 0.04 x10(3)/[facility] LABORATORY Specimen Anatomical Collection Method Collection Time Receive d Time (Source) Location / / Volume Laterality Blood 05/17/2022 3:33 AM 3:53 EDT AM EDT Resulting Agency Comment Spec In Lab Edward Rodríguez MD HEMATOLOGY ORDERABLES Performing Organization Address City/State/ZIP Code Phon e Number [address] (ABNORMAL) Hemogram (05/17/2022 3:33 AM EDT) Analysis Performed At Patho logist Time Signature WBC 10.4 (H) 4.0 - 9.5 [facility] x10(3)/[facility] LABORATORY RBC 3.72 (L) 4.58 - [facility] 5.54 [facility] x10(6)/[facility] LABORATORY Hemoglobin 12.0 (L) 13.7 - [facility] 16.5 g/dL [facility] LABORATORY Hematocrit 36.4 (L) 40.5 - [facility] 48.5 % [facility] LABORATORY MCV 97.8 (H) 82.9 - [facility] 93.1 [facility] LABORATORY MCH 32.3 (H) 27.5 - [facility] 32.1 pg [facility] LABORATORY MCHC 33.0 32.0 - [facility] 35.7 g/dL [facility] LABORATORY Platelets 149 145 - 357 [facility] x10(3)/[facility] LABORATORY RDWSD 48.7 (H) 36.0 - [facility] 45.0 [facility] LABORATORY RDWCV 13.5 11.4 - [facility] 13.8 % [facility] LABORATORY MPV 10.6 7.6 - 12.9 [facility] LABORATORY nRBC % Auto 0.0 % [facility] LABORATORY nRBC Abs Auto 0.000 0.000 - [facility] 0.000 [facility] x10(3)/[facility] LABORATORY Specimen Anatomical Collection Method Collection Time Receive d Time (Source) Location / / Volume Laterality Blood 05/17/2022 3:33 AM 3:53 EDT AM EDT Resulting Agency Comment Spec In Lab Edward Rodríguez MD HEMATOLOGY ORDERABLES Performing Organization Address City/State/[place] [address] (ABNORMAL) Urinalysis Microscopic Exam (05/16/2022 11:15 PM EDT) P athologist Signature RBC UA 8 (H) 0 - 3 /HPF [facility] LABORATORY WBC UA 2 0 - 3 /HPF [facility] LABORATORY Specimen Anatomical Collection Method Collection Time Receive d Time (Source) Location / / Volume Laterality Clean Catch 05/16/2022 11:15 05/16/2022 Urine PM EDT 11:30 PM EDT Resulting Agency Comment Spec In Lab Barbie Ashraf MD URINE ORDERABLES Performing Organization Address City/[facility]/ZIP Code Phon e Number [place] [id number] HOSPITAL LABORATORY Drive (ABNORMAL) Urinalysis with reflex Culture (05/16/2022 11:15 PM EDT) [facility] gist Method Time Signature Glucose UA Negative Negative [facility] mg/dL [facility] LABORATORY Protein UA Negative Negative [facility] mg/dL [facility] LABORATORY Bilirubin UA Negative Negative [facility] mg/dL [facility] LABORATORY Comment: Clinical correlation required for positi ve Urine Bilirubin results as false positive may occur with some drugs and d rug related products. If a false positive is suspected a serum total bili quarles should be considered if clinically indicated. Urobilinogen UA Normal Normal mg/dL [facility] LABORATORY pH UA 6.0 5.0 - 8.0 [facility] LABORATORY Blood UA Small (A) Negative mg/dL [facility] LABORATORY Ketones UA Trace (A) Negative mg/dL [facility] LABORATORY Nitrite UA Negative Negative [facility] LABORATORY Leukocytes UA Negative Negative mcL [facility] LABORATORY Appearance UA Clear Clear [facility] LABORATORY Spec [place] UA 1.021 1.005 - 1.030 [facility] LABORATORY Color UA Yellow Yellow [facility] LABORATORY Culture Reflexed No [facility] LABORATORY Specimen Anatomical Collection Method Collection Time Receive d Time (Source) Location / / Volume Laterality Clean Catch 05/16/2022 11:15 05/16/2022 Urine PM EDT 11:30 PM EDT Resulting Agency Comment Spec In Lab Fito Summers MD URINE ORDERABLES Performing Organization Address City/State/ZIP Code Phon e Number [place] [id number] HOSPITAL LABORATORY Drive Heparin (unfractionated) Level (05/16/2022 10:59 PM EDT) athologist Signature Heparin UFH 0.65 IU/mL [facility] LABORATORY Comment: Specimen drawn more than one hour prior to testing. Results may not be reliable for heparin monitoring. Result may be falsely low. Heparin (anti-Xa) levels should be deter mined [...] (Source) Location / / Volume Laterality Blood 05/16/2022 10:59 05/16/2022 PM EDT 11:28 PM EDT Resulting Agency Comment Spec In Lab Fito Summers MD HEMATOLOGY ORDERABLES Performing Organization Address City/State/[place] [address] XR Chest One View [...] who have questions please contact the health healthcare architect that requested your imaging first. ? Narrative [...] ho have questions please contact the health healthcare architect that requested your imaging first. Fito Summers MD IMG DX ORDERABLES EKG 12 Lead (05/16/2022 8:57 PM EDT) Component Value Ref Range Test Analysis Performed Pathologis t Method Time At Signature Ventricular rate 117 BPM MUSE SYSTEM QRS Duration 112 ms MUSE SYSTEM Q-T Interval 346 ms MUSE SYSTEM QTC Calculated 482 ms MUSE SYSTEM (Bezet) Calculated R [place] -48 degrees MUSE SYSTEM Calculated T [place] 111 degrees MUSE SYSTEM INTERPRETATION Atrial fibrillation with rapid ventricular response MUSE SYSTEM Left anterior fascicular block Minimal voltage criteria for LVH, may be normal variant ( [place] product ) Nonspecific ST and T wave abnormality Abnormal ECG When compared with ECG of 28-JUN-2011 14:59, Atrial fibrillation has replaced Sinus rhythm Vent. rate has increased BY ??47 BPM Confirmed by MD Shad, Abundio ([id number]) on 05/17/2022 10:54:28 AM Specimen Anatomical Collection Method Collection Time Receive d Time (Source) Location / / Volume Laterality 05/16/2022 8:57 PM 2 EDT 10:54 AM EDT Fito Summers MD ECG ORDERABLES Performing Organization Address City/State/ZIP Code Phon e Number MUSE SYSTEM Heparin (unfractionated) Level (05/16/2022 4:34 PM EDT) athologist Signature Heparin UFH 0.53 IU/mL [facility] LABORATORY Comment: Heparin (anti-Xa) levels should be [...] (Source) Location / / Volume Laterality Blood 05/16/2022 4:34 PM 2 4:44 EDT PM EDT Resulting Agency Comment Spec In Lab Fito Summers MD HEMATOLOGY ORDERABLES Performing Organization Address City/[facility]/[place] [address] ECHOCARDIOGRAM COMPLETE W CONTRAST (05/16/2022 12:49 PM EDT) athologist Signature EF 28 [facility] Specimen (Source) Anatomical Collection Method Collection Time Re ceived Time Location / / Volume Laterality 05/16/2022 11:22 AM EDT Narrative [facility] - 05/16/2022 1:54 PM EDT ?[facility] ?[address] ? [place] [address] ?Voice: ?Fax: ? Echocardiogram Report Name: KOKO ZAMORA ?Study Date: 05/16/2022 11:22 AM ? Patient Location: [facility] 0[address] B : 1940 ? Height: 67.5 in ? Account: [id number] Age: 81 yrs ? Weight: 176 lb Gender: Male ?BSA: 1.9 m2 Ordering Physician: FITO SUMMERS Referring Physician: MALI FLORIAN Performed By: Jolene Bernard RDCS Exam Location: [facility]. Interpretation Summary Left ventricle is mildly dilated. [...] and LV systolic dysfunction are new. Procedure Complete-[id number]. Image enhancement Optiso n was used for [...] diffuse Procedure Note Gladys Jaime MD - 05/16/2022Hellen jasmine of this note might be different from the original. [address] [place] [address] Voice: Fax: Echocardiogram Report Name: KOKO ZAMORA Study Date: 05/2022 11:22 AM Patient Location: [address] [place] [address] : 1940 Height: 67.5 in Account: [id number] Age: 81 yrs Weight: 176 lb Gender: Male BSA: 1.9 m2 Ordering Physician: FIOT SUMMERS Referring Physician: MALI FLORIAN Performed By: Jolene Bernard RDCS Exam Location: [facility]. Interpretation Summary Left ventricle is mildly dilated. [...] and LV systolic dysfunction are new. Procedure Complete-[id number]. Image enhancement Optiso n was used for [...] Code Phon e Number [facility] (ABNORMAL) Differential, Automated (05/16/2022 3:01 AM EDT) [facility] Method Time Signature Neutrophils % 78.8 % [facility] LABORATORY Neutr Abs (ANC) 9.11 (H) 1.70 - [facility] 6.10 [facility] x10(3)/[facility] LABORATORY Lymphocytes % 9.4 % [facility] LABORATORY Lymphocytes Abs 1.1 0.9 - 3.2 [facility] x10(3)/[facility] LABORATORY Monocytes % 10.9 % [facility] LABORATORY Monocyte Abs 1.3 (H) 0.3 - 0.9 [facility] x10(3)/[facility] LABORATORY Eosinophils % 0.0 % [facility] LABORATORY Eosinophils Abs 0.0 0.0 - 0.4 [facility] x10(3)/[facility] LABORATORY Basophils % 0.3 % [facility] LABORATORY Basophils Abs 0.0 0.0 - 0.1 [facility] x10(3)/[facility] LABORATORY Immature Gran % 0.60 % [facility] LABORATORY Comment: Immature granulocytes(IG's)percentage an d absolute count will include metamyelocytes, myelocytes, and promyelo cytes. Blood smears from CBCs yielding IG's will be scanned manually for concor dance. If this scan disagrees with the automated IG or if promyelocytes are not ed, a manual differential will be performed. Rain Gran Abs 0.07 (H) 0.00 - 0.04 x10(3)/[facility] LABORATORY Specimen Anatomical Collection Method Collection Time Receive d Time (Source) Location / / Volume Laterality Blood 05/16/2022 3:01 AM 2 3:36 EDT AM EDT Resulting Agency Comment Spec In Lab Erin Garza MD HEMATOLOGY ORDERABLES Performing Organization Address City/State/[place] [address] (ABNORMAL) Hemogram (05/16/2022 3:01 AM EDT) Analysis Performed At Patho logist Time Signature WBC 11.6 (H) 4.0 - 9.5 [facility] x10(3)/[facility] LABORATORY RBC 3.62 (L) 4.58 - [facility] 5.54 [facility] x10(6)/[facility] LABORATORY Hemoglobin 12.0 (L) 13.7 - [facility] 16.5 g/dL [facility] LABORATORY Hematocrit 35.3 (L) 40.5 - [facility] 48.5 % [facility] LAB[facility]ATORY MCV 97.5 (H) 82.9 - [facility] 93.1 fL [facility] LABORATORY MCH 33.1 (H) 27.5 - [facility] 32.1 pg [facility] LAB[facility]ORY MCHC 34.0 32.0 - [facility] 35.7 g/dL [facility] LABORATORY Platelets 151 145 - 357 [facility] x10(3)/[facility] LABORATORY RDWSD 47.6 (H) 36.0 - [facility] 45.0 [facility] LABORATORY RDWCV 13.3 11.4 - [facility] 13.8 % [facility] LABORATORY MPV 10.5 7.6 - 12.9 [facility]O [facility] LABORATORY nRBC % Auto 0.0 % [facility] LABORATORY nRBC Abs Auto 0.000 0.000 - [facility] 0.000 [facility] x10(3)/[facility] LABORATORY Specimen Anatomical Collection Method Collection Time Receive d Time (Source) Location / / Volume Laterality Blood 05/16/2022 3:01 AM 2 3:36 EDT AM EDT Resulting Agency Comment Spec In Lab Erin Garza MD HEMATOLOGY ORDERABLES Performing Organization Address City/[facility]/ZIP [facility] Phon e Number [address] Phosphorus (05/16/2022 3:01 AM EDT) P athologist Signature Phosphorus 3.7 2.5 - 4.5 [facility] mg/dL [facility] LABORATORY Specimen Anatomical Collection Method Collection Time Receive d Time (Source) Location / / Volume Laterality Blood 05/16/2022 3:01 AM 2 3:36 EDT AM EDT Resulting Agency Comment Spec In Lab Fito Summers MD CHEMISTRY ORDERABLES Performing Organization Address City/[facility]/ZIP Code Phon e Number [address] Magnesium (05/16/2022 3:01 AM EDT) P athologist Signature Magnesium 0.77 0.69 - 1.07 [facility] mmol/L [facility] LABORATORY Specimen Anatomical Collection Method Collection Time Receive d Time (Source) Location / / Volume Laterality Blood 05/16/2022 3:01 AM 2 3:36 EDT AM EDT Resulting Agency Comment Spec In Lab Fito Summers MD CHEMISTRY ORDERABLES Performing Organization Address City/State/[place] [address] (ABNORMAL) Basic Metabolic Panel (non-fasting) (05/16/2022 3:01 AM EDT) P athologist Signature Glucose Lvl 222 (H) 65 - 199 [facility] mg/dL [facility] LABORATORY Comment: Diabetes: >=200 mg/dL plus symp toms BUN 12 10 - 20 mg/dL [facility] Creatinine 0.66 (L) 0.80 - 1.50 mg/dL [facility] Sodium 138 135 - 145 mmol/L [facility] Potassium 4.5 3.5 - 5.0 mmol/L [facility] Comment: Please note: ??Patients with WBC >100,00 0 may have falsely elevated Potassium levels. ??For accurate Potassium quantif ication in these patients send serum separator tube (gold top) for subsequent determinations. ??Contact the Clinical Chemistry Laboratory if there are any qu estions. Chloride 108 (H) 98 - 107 mmol/L [facility] CO2 22 22 - 31 mmol/L [facility] Anion Gap 8 5 - 15 mmol/L [facility] Calcium 8.2 (L) 8.5 - 10.5 mg/dL [facility] Estimated GFR 95 >=60 mL/min/1.73 m?? [facility] [...] (Source) Location / / Volume Laterality Blood 05/16/2022 3:01 AM 2 3:36 EDT AM EDT Resulting Agency Comment Spec In Lab Fito Summers MD CHEMISTRY ORDERABLES Performing Organization Address City/State/[place] [address] (ABNORMAL) BLOOD GAS 2 ARTERIAL (05/15/2022 3:33 PM EDT) Analysis Performed At Patho logist Time Signature pH Art 7.33 (L) 7.35 - [facility] 7.45 [facility] pCO2 Art 41 35 - 45 [facility] mmHg [facility] pO2 Art 131 (H) 85 - 104 [facility] LABORATORY HCO3 Art 21.1 20.0 - [facility] 26.0 [facility] BE Art -4.8 (L) -3.0 - 3.0 [facility] mmol/L [facility] Hgb Blood Gas 13.4 (L) 13.7 - [facility] 16.5 g/dL [facility] O2HB Art 96.9 94.0 - [facility] 97.0 % [facility] COHB Art 1.4 % [facility] Comment: Nonsmokers: 0.5-1.5% COHB Smokers: Variable, but usually less than 10% Toxic: 20-30% COHB Lethal: Greater than 60% COHB METHB Art 0.3 <=1.5 % [facility] Na Whole Blood 139 135 - 145 mmol/L [facility] K Whole Blood 3.8 3.5 - 5.0 mmol/L [facility] Comment: Please note: Patients with WBC >100,000 may have falsely elevated Potassium levels. Contact the Clinical Chemistry L aboratory if there are any questions. ICa Whole Blood 1.32 1.15 - 1.33 mmol/L [facility] Comment: Note: ??Total bilirubin higher than 20 m g/dL may lead to falsely low ionized calcium. CL Whole Blood 113 (H) 98 - 107 mmol/L [facility] Gluc Whole Bld 136 65 - 199 mg/dL [facility] Comment: Diabetes: >=200 mg/dL plus symp toms. Lactate WB 2.0 0.5 - 2.2 mmol/L [facility] Specimen Anatomical Collection Method Collection Time Receive d Time (Source) Location / / Volume Laterality Blood 05/15/2022 3:33 PM 3:[address] Jamel Torre MD CHEMISTRY ORDERABLES Performing Organization Address City/State/[place] [address] (ABNORMAL) BLOOD GAS 2 ARTERIAL (05/15/2022 2:06 PM EDT) Analysis Performed At Patho logist Time Signature pH Art 7.39 7.35 - [facility] 7.45 [facility] pCO2 Art 35 35 - 45 [facility] LABORATORY pO2 Art 135 (H) 85 - 104 [facility] LABORATORY HCO3 Art 20.8 20.0 - [facility] 26.0 [facility] mmol/L [facility] BE Art -4.2 (L) -3.0 - 3.0 [facility] mmol/L [facility] Hgb Blood Gas 14.5 13.7 - [facility] 16.5 g/dL [facility] O2HB Art 97.2 (H) 94.0 - [facility] 97.0 % [facility] COHB Art 1.2 % [facility] Comment: Nonsmokers: 0.5-1.5% COHB Smokers: Variable, but usually less than 10% Toxic: 20-30% COHB Lethal: Greater than 60% COHB METHB Art 0.3 <=1.5 % [facility] Na Whole Blood 140 135 - 145 mmol/L [facility] K Whole Blood 3.8 3.5 - 5.0 mmol/L [facility] Comment: Please note: Patients with WBC >100,000 may have falsely elevated Potassium levels. Contact the Clinical Chemistry L aboratory if there are any questions. ICa Whole Blood 1.12 (L) 1.15 - 1.33 mmol/L [facility] Comment: Note: ??Total bilirubin higher than 20 m g/dL may lead to falsely low ionized calcium. CL Whole Blood 109 (H) 98 - 107 mmol/L [facility] Gluc Whole Bld 152 65 - 199 mg/dL [facility] Comment: Diabetes: >=200 mg/dL plus symp toms. Lactate WB 1.5 0.5 - 2.2 mmol/L [facility] Specimen Anatomical Collection Method Collection Time Receive d Time (Source) Location / / Volume Laterality Blood 05/15/2022 2:06 PM 2:[address] Jamel Torre MD CHEMISTRY ORDERABLES Performing Organization Address City/[facility]/[place] [address] (ABNORMAL) Prothrombin Time (05/15/2022 12:30 PM EDT) P athologist Signature PT 12.9 (H) 9.4 - 12.5 [facility] LABORATORY INR 1.1 [facility] Comment: An INR <2.0 [...] Morales DO HEMATOLOGY ORDERABLES Performing Organization Address City/[facility]/[place] [address] (ABNORMAL) APTT (05/15/2022 12:30 PM EDT) P athologist Signature PTT 76 (H) 25 - 37 sec [facility] Comment: The PTT is [...] Morales DO HEMATOLOGY ORDERABLES Performing Organization Address City/[facility]/ZIP Code Phon e Number [address] Gold Tube HOLD (05/15/2022 12:20 PM EDT) P athologist Signature Gold Hold Sample in [facility]. [facility] Specimen Anatomical Collection Method Collection Time Receive d Time (Source) Location / / Volume Laterality Blood No Charge / 05/15/2022 12:20 05/15/2022 Unknown PM EDT 12:20 PM EDT Lc TRIPP CHEMISTRY ORDERABLES Performing Organization Address City/[facility]/ZIP Code Phon e Number [address] Type and Screen Validity (05/15/2022 12:00 PM EDT) [facility] Method Time Signature T&S only valid [facility] LABORATORY Comment: This Type and Screen result is only valid at the [facility] Specimen Anatomical Collection Method Collection Time Receive d Time (Source) Location / / Volume Laterality Blood 05/15/2022 12:00 05/15/2022 PM EDT 12:17 PM EDT Resulting Agency Comment Spec In Lab Lc TRIPP BLOOD BANK ORDERABLES Performing Organization Address City/[facility]/ZIP Code Phon e Number [address] ABORH Recheck Status (05/15/2022 12:00 PM EDT) [facility] [employer] Method Time Signature ABORH Recheck Order Placed [facility] LABORATORY ABORH Type Complete [facility] LABORATORY Specimen Anatomical Collection Method Collection Time Receive d Time (Source) Location / / Volume Laterality Blood 05/15/2022 12:00 05/15/2022 PM EDT 12:17 PM EDT Resulting Agency Comment Spec In Lab Lc TRIPP BLOOD BANK ORDERABLES Performing Organization Address City/[facility]/[place] [address] CK (05/15/2022 12:00 PM EDT) P athologist Signature CK, Total 87 0 - 200 [facility] unit/L [facility] Specimen Anatomical Collection Method Collection Time Receive d Time (Source) Location / / Volume Laterality Blood Venous Draw / 05/15/2022 12:00 05/15/2022 Unknown PM EDT 12:19 PM EDT Resulting Agency Comment Spec In Lab Fito Summers MD CHEMISTRY ORDERABLES Performing Organization Address City/[facility] [place] [address] Antibody screen (05/15/2022 12:00 PM EDT) [facility] Method Time Signature Ab Screen Negative [facility] LABORATORY Expires at 05/18/2022 [facility] [id number] on: [facility] Specimen Anatomical Collection Method Collection Time Receive d Time (Source) Location / / Volume Laterality Blood 05/15/2022 12:00 05/15/2022 PM EDT 12:17 PM EDT Resulting Agency Comment Spec In Lab Lc TRIPP BLOOD BANK ORDERABLES Performing Organization Address City/[facility]/[place] [address] ABO/Rh Typing (05/15/2022 12:00 PM EDT) P athologist Signature ABORh Type O Pos [facility] Specimen Anatomical Collection Method Collection Time Receive d Time (Source) Location / / Volume Laterality Blood 05/15/2022 12:00 05/15/2022 PM EDT 12:17 PM EDT Resulting Agency Comment Spec In Lab Lc TRIPP BLOOD BANK ORDERABLES Performing Organization Address City/[facility]/[place] [address] (ABNORMAL) Differential, Automated (05/15/2022 12:00 PM EDT) [facility] Method Time Signature Neutrophils % 79.4 % [facility] Neutr Abs (ANC) 7.49 (H) 1.70 - [facility] 6.10 [facility] x10(3)/[facility] LABORATORY Lymphocytes % 11.3 % [facility] Lymphocytes Abs 1.1 0.9 - 3.2 [facility] x10(3)/[facility] LABORATORY Monocytes % 7.8 % [facility] Monocyte Abs 0.7 0.3 - 0.9 [facility] x10(3)/[facility] LABORATORY Eosinophils % 0.6 % [facility] Eosinophils Abs 0.1 0.0 - 0.4 [facility] x10(3)/[facility] LABORATORY Basophils % 0.6 % [facility] Basophils Abs 0.1 0.0 - 0.1 [facility] x10(3)/[facility] LABORATORY Immature Gran % 0.30 % [facility] Comment: Immature granulocytes(IG's)percentage an d absolute count will include metamyelocytes, myelocytes, and promyelo cytes. Blood smears from CBCs yielding IG's will be scanned manually for concor dance. If this scan disagrees with the automated IG or if promyelocytes are not ed, a manual differential will be performed. Rain Gran Abs 0.03 0.00 - 0.04 x10(3)/[facility] LABORATORY Specimen Anatomical Collection Method Collection Time Receive d Time (Source) Location / / Volume Laterality Blood 05/15/2022 12:00 05/15/2022 PM EDT 12:19 PM EDT Resulting Agency Comment Spec In Lab Lc TRIPP HEMATOLOGY ORDERABLES Performing Organization Address City/State/[place] [address] (ABNORMAL) Hemogram (05/15/2022 12:00 PM EDT) Analysis Performed At Patho logist Time Signature WBC 9.4 4.0 - 9.5 [facility] x10(3)/[facility] LABORATORY RBC 4.48 (L) 4.58 - [facility] 5.54 [facility] x10(6)/[facility] LABORATORY Hemoglobin 14.5 13.7 - [facility] 16.5 g/dL [facility] Hematocrit 42.4 40.5 - [facility] 48.5 % [facility] MCV 94.6 (H) 82.9 - [facility] 93.1 [facility] LABORATORY MCH 32.4 (H) 27.5 - [facility] 32.1 pg [facility] MCHC 34.2 32.0 - [facility] g/dL [facility] Platelets 209 145 - 357 [facility] x10(3)/[facility] LABORATORY RDWSD 45.9 (H) 36.0 - [facility] 45.0 [facility] LABORATORY RDWCV 13.1 11.4 - [facility] 13.8 % [facility] MPV 10.5 7.6 - 12.9 [facility] LABORATORY nRBC % Auto 0.0 % [facility] nRBC Abs Auto 0.000 0.000 - [facility] 0.000 [facility] x10(3)/[facility] LABORATORY Specimen Anatomical Collection Method Collection Time Receive d Time (Source) Location / / Volume Laterality Blood 05/15/2022 12:00 05/15/2022 PM EDT 12:19 PM EDT Resulting Agency Comment Spec In Lab Lc TRIPP HEMATOLOGY ORDERABLES Performing Organization Address City/State/[place] [address] (ABNORMAL) Basic Metabolic Panel (non-fasting) (05/15/2022 12:00 PM EDT) P athologist Signature Glucose Lvl 203 (H) 65 - 199 [facility] mg/dL [facility] Comment: Diabetes: >=200 mg/dL plus symp toms BUN 16 10 - 20 mg/dL [facility] Creatinine 0.84 0.80 - 1.50 mg/dL [facility] Sodium 141 135 - 145 mmol/L [facility] Potassium 4.7 3.5 - 5.0 mmol/L [facility] Comment: Please note: ??Patients [...] mmol/L [facility] Anion Gap 11 5 - 15 mmol/L [facility] Calcium 8.5 8.5 - 10.5 mg/dL [facility] Estimated GFR 89 >=60 mL/min/1.73 m?? [facility] [...] Location / / Volume Laterality Blood 05/15/2022 12:00 05/15/2022 PM EDT 12:19 PM EDT Resulting Agency Comment Spec In Lab Jhonny Morales DO CHEMISTRY ORDERABLES Performing Organization Address City/State/[place] [address] documented in this encounter Visit Diagnoses Diagnosis Atrial fibrillation, unspecified type Non-ST elevation myocardial infarction ( NSTEMI) Acute myocardial infarction, subendocard ial infarction, episode of care unspecified Limb ischemia Unspecified circulatory system disorder HFrEF (heart failure with reduced ejecti on fraction) Paroxysmal atrial fibrillation Atrial fibrillation Paroxysmal atrial fibrillation Atrial fibrillation documented in this encounter Admitting Diagnoses Diagnosis Limb ischemia Unspecified circulatory system disorder documented in this encounter Administered Medications Inactive Administered Medications - up to 3 most recent administrations Medication Order MAR Action Action Date Dose Rate Site acetaminophen (Tylenol) tablet 650 Given 05/18/2022 9:01 AM EDT 650 mg mg 650 mg, Oral, EVERY 6 HOURS PRN, Starting on Fri05/16/22 at 1606, Until Fri05/21/22 at 1743, Pain, Maximum dose of acetaminophen is 4000 mg from all sources in 24 hours. When ordered for pain, acetaminophen should be given even when other ordered pain medications are indicated. , Routine Given 05/17/2022 8:37 AM EDT 650 mg Given 05/16/2022 8:10 PM EDT 650 mg alum-mag hydroxide-simeth (Maalox) (40 mg-40 Given 09/2022 7:04 PM EDT 10 mLs mg-4 mg/mL) oral liquid 10 mL 10 mL, Oral, 3 TIMES DAILY PRN, Starting on 05/20/22 at 1850, Until Fri05/21/22 at 1743, Heartburn, Routine aspirin EC tablet 81 mg Given 05/21/2022 8:16 AM EDT 81 mg 81 mg, Oral, DAILY, First dose on Fri05/21/22 at 0900, Until Discontinued, Recovery (Recovery-Hospital Unit), Routine bisacodyL (Dulcolax) suppository 10 mg 10 mg, Rectal, DAILY PRN, Starting on Fri05/16/22 at 16 04, Until Fri05/21/22 at 1743, Constipation, Routine clopidogreL (Plavix) tablet 75 mg Given 05/21/2022 8:16 AM EDT 75 mg 75 mg, Oral, DAILY, First dose on Fri05/21/22 at 0900, Until Discontinued, Recovery (Recovery-Hospital Unit), Routine folic acid (Folvite) tablet 1,000 mcg Given 05/21/2022 8:15 AM EDT 1,000 mcg 1,000 mcg, Oral, DAILY, First dose on Fri05/16/22 at 0900, Until Discontinued, Routine Given 05/20/2022 8:52 AM EDT 1,000 mcg Given 05/19/2022 8:38 AM EDT 1,000 mcg furosemide (Lasix) (10 mg/mL) injection 20 mg Given 05/16/2022 11:56 PM EDT 20 mg 20 mg, Intravenous, ONCE, 1 dose, On Brandi 05/16/22 at 2330 furosemide (Lasix) (10 mg/mL) injection 20 mg Given 05/18/2022 8:45 PM EDT 20 mg 20 mg, Intravenous, ONCE, 1 dose, On 05/18/22 at 1845 heparin (porcine) 50 units/mL New Bag 05/16/2022 12:02 AM EDT 500 Units/hr 10 mL/hr in sodium chloride 0.45% 500 mL infusion 500 Units/hr (10 mL/hr), Intravenous, CONTINUOUS, Starting on Fri05/15/22 at 2345, Until Brandi 05/16/22 at 0759, Routine heparin (porcine) 50 Rate/Dose Verify 05/21/2022 1:01 1,200 Units/hr 24 mL/hr units/mL in sodium PM EDT chloride 0.45% 500 mL infusion 0-5,000 Units/hr (0-100 mL/hr), Intravenous, CONTINUOUS, Starting on Brandi 05/16/22 at 0845, Until 05/21/22 at 1523, Begin infusion at 1,200 units per hr (15 units/kg/hr). Maximum initial infusion rate is 2,000 units/hr Infusion doses are rounded to the nearest [...] Heparin UFH Level - Per Protocol, Routine Restarted 05/21/2022 2:19 AM EDT 1,200 Units/hr 24 mL/hr New Bag 05/20/2022 4:00 PM EDT 1,200 Units/hr 24 mL/hr HYDROmorphone (Dilaudid) (2 mg/mL) multi-dose Given 6:18 PM EDT 0.2 mg injection solution 0.2 mg 0.2 mg, Intravenous, EVERY 10 MIN PRN, Starting on Fri05/15/22 at 1659, Until Fri05/15/22 at 2024, Pain, For Mild to Moderate Pain (1-5 out of 10), Hold for respiratory rate less than 10 per minute. Maximum dose 3 mg over one hour including administrations in the OR. If multiple pain medications are ordered, start with HYDROmorphone or morphine and use fentaNYL for breakthrough pain, PACU Recovery, Routine HYDROmorphone (Dilaudid) (2 mg/mL) multi-dose Given 7:01 PM EDT 0.4 mg injection solution 0.4 mg 0.4 mg, Intravenous, EVERY 10 MIN PRN, Starting on Fri05/15/22 at 1659, Until Fri05/15/22 at 2024, Pain, For Moderate to Severe Pain (6-10 out of 10), Hold for respiratory rate less than 10 per minute. Maximum dose 3 mg over one hour including administrations in the OR. If multiple pain medications are ordered, start with HYDROmorphone or morphine and use fentaNYL for breakthrough pain, PACU Recovery, Routine Given 05/15/2022 6:29 PM EDT 0.4 mg ipratropium-albuteroL (Duoneb) 0.5 mg-3 mg(2.5 Given 0 05/15/2022 5:19 PM EDT 3 mLs mg base)/3 mL nebulizer solution 3 mL 3 mL, Nebulization, 4 TIMES DAILY PRN, Starting on Fri05/15/22 at 1717, Until Fri05/21/22 at 1743, Wheezing, Routine lactated ringers infusion New Bag 05/15/2022 6:22 PM EDT 100 mL/hr 100 mL/hr 100 mL/hr, Intravenous, CONTINUOUS, Starting on Fri05/15/22 at 1815, Until Brandi 05/16/22 at 0014, Recovery (Recovery-Hospital Unit) lidocaine (Xylocaine) 1% (10 mg/mL) injection Given 9:30 AM EDT 250 mg 250 mg 250 mg (25 mL), Subcutaneous, ONCE, 1 dose, On Fri05/17/22 at 0930, For physician administration for bedside procedure, Routine magnesium sulfate 2 g in sterile water New Bag 05/17/2022 11:3 1 AM EDT 2 g 25 mL/hr 50 mL infusion 2 g, Intravenous, ONCE, 1 dose, On Fri05/17/22 at 1145, Administer over 120 Minutes metoprolol (LOPRESSOR) injection 5 mg Given 05/18/2022 10:48 PM EDT 5 mg 5 mg, Intravenous, EVERY 5 MIN PRN, 3 doses, Starting on Brandi 05/16/22 at 2125, Until 05/18/22 at 2248, Elevated Heart Rate, up to 3 doses for HR >110 Given 05/18/2022 12:59 AM EDT 5 mg Given 05/16/2022 9:58 PM EDT 5 mg metoprolol (LOPRESSOR) injection 5 mg Given 05/19/2022 6:05 AM EDT 5 mg 5 mg, Intravenous, EVERY 5 MIN PRN, Starting on Fri05/19/22 at 0506, Until Fri05/21/22 at 1743, Elevated Heart Rate, up to 3 doses for HR >110 metoprolol tartrate (Lopressor) tablet 12.5 Given 05/10 8:17 AM EDT 12.5 mg mg 12.5 mg, Oral, EVERY 12 HOURS SCHEDULED (2 times per day), First dose on 05/18/22 at 2100, Until Discontinued, Routine Given 05/20/2022 8:05 PM EDT 12.5 mg Given 05/20/2022 8:53 AM EDT 12.5 mg metoprolol tartrate (Lopressor) tablet 12.5 Given 05/10 11:36 AM EDT 12.5 mg mg 12.5 mg, Oral, EVERY 6 HOURS SCHEDULED, First dose (after last modification) on Fri05/21/22 at 1200, Until Discontinued, Routine multivitamin with minerals (Thera M) tablet Given 05/10 8:16 AM EDT 1 tablet 1 tablet 1 tablet, Oral, DAILY, First dose on Brandi 05/16/22 at 0900, Until Discontinued, Routine Given 05/20/2022 8:52 AM EDT 1 tablet Given 05/19/2022 8:38 AM EDT 1 tablet ondansetron (pf) (Zofran) (2 mg/mL) inje ction 4 mg 4 mg, Intravenous, EVERY 8 HOURS PRN, Starting on Fri05/15/22 at 2147, Until Fri05/21/22 at 1743, Nausea, May repeat time s one in 30 minutes if ineffective. If multiple antiemetics are ordered, use ondansetron firs t, Recovery (Recovery-Hospital Unit) ondansetron (Zofran) tablet 4 mg 4 mg, Oral, EVERY 8 HOURS PRN, Starting on Fri05/15/22 at 2147, Until Fri05/21/22 at 1743, Nausea, Vomiting, If multiple antiemetics are ordered, use ondansetron first. PO Preferred. If patient unable to take PO, may give IV if ordered. May repeat times one in 45 minutes if ineffe ctive., Recovery (Recovery-Hospital Unit), Routine oxyCODONE (Roxicodone) tablet 10-15 mg 10-15 mg, Oral, EVERY 4 HOURS PRN, Starting on 05/17 at 0655, Until Fri05/21/22 at 1743, Pain, severe pain (7-10 ), Initial dose 10mg. If pain control not adequate in 60 minutes, give additional 5mg, Routine oxyCODONE (Roxicodone) tablet 5-10 mg 5-10 mg, Oral, EVERY 4 HOURS PRN, Starti ng on Fri05/17/22 at 0655, Until Fri05/21/22 at 1743, Pain, moderate pain (4-6), Init ial dose 5mg. If pain control not adequate in 60 minutes, give additional 5mg, Routine pantoprazole EC (Protonix) tablet 40 mg 40 mg, Oral, DAILY, First dose on Fri at 0900, Until Discontinued, DO NOT CRUSH OR OPEN, Routine perflutren protein-A microsphers (Optison) Given 05/16 11:15 AM EDT 1.5 mLs (0.22 mg/mL) injection 1.5 mL 1.5 mL, Intravenous, ONCE PRN, 1 dose, Starting on Brandi 05/16/22 at 1249, Until Fri05/16/22 at 1115, for enhancement of sub-optimal echo images, Echo Lab (Intra-Procedure), Routine PHENobarbitaL (Luminal) (130 Given 05/16/2022 6:28 AM EDT 122.2 mg 11.3 mL/hr mg/mL) injection 122.2 mg 122.2 mg (rounded from 121.86 mg = 1.8 mg/kg/dose ? 67.7 kg [place] weight), Intravenous, at 11.3 mL/hr, EVERY 3 HOURS, 2 doses, First dose on Brandi 05/16/22 at 0245, Last dose on Fri05/16/22 at 0545, Administer as slow IV Push at at rate no more than 50 mg/minute. Hold for RASS Less than -1: Not fully alert, but has sustained (more than 10 seconds) awakening, with eye contact, to voice. Hold for HR Less than 60 bpm. Hold for SBP Less than 90 mmHg., Routine Given 05/16/2022 3:42 AM EDT 122.2 mg 11.3 mL/hr PHENobarbitaL (Luminal) (130 mg/mL) Given 05/16/2022 12:00 A M EDT 162.5 mg 15 mL/hr injection 162.5 mg 162.5 mg (rounded from 162.48 mg = 2.4 mg/kg/dose ? 67.7 kg [place] weight), Intravenous, at 15 mL/hr, ONCE, 1 dose, On Fri05/15/22 at 2345, Administer as slow IV Push at at rate no more than 50 mg/minute. Hold for RASS Less than -1: Not fully alert, but has sustained (more than 10 seconds) awakening, with eye contact, to voice. Hold for HR Less than 60 bpm. Hold for SBP Less than 90 mmHg., Routine PHENobarbitaL (Luminal) tablet 16.2 mg Given 05/17/2022 9:30 PM EDT 16.2 mg 16.2 mg (rounded from 16.248 mg = 0.24 mg/kg/dose ? 67.7 kg [place] weight), Oral, 2 TIMES DAILY, 2 doses, First dose on Fri05/17/22 at 0900, Last dose on Fri05/17/22 at 2100, Hold for RASS Less than -1: Not fully alert, but has sustained (more than 10 seconds) awakening, with eye contact, to voice. Hold for HR Less than 60 bpm. Hold for SBP Less than 90 mmHg., Routine Given 05/17/2022 8:37 AM EDT 16.2 mg PHENobarbitaL (Luminal) tablet 32.4 mg Given 05/16/2022 8:10 PM EDT 32.4 mg 32.4 mg (rounded from 32.496 mg = 0.48 mg/kg/dose ? 67.7 kg [place] weight), Oral, 2 TIMES DAILY, 2 doses, First dose on Fri05/16/22 at 0900, Last dose on Fri05/16/22 at 2100, Hold for RASS Less than -1: Not fully alert, but has sustained (more than 10 seconds) awakening, with eye contact, to voice. Hold for HR Less than 60 bpm. Hold for SBP Less than 90 mmHg., Routine Given 05/16/2022 9:09 AM EDT 32.4 mg PHENobarbitaL (Luminal) tablet 8.1 mg Given 05/18/2022 8:46 PM EDT 8.1 mg 8.1 mg (rounded from 8.124 mg = 0.12 mg/kg/dose ? 67.7 kg [place] weight), Oral, 2 TIMES DAILY, 2 doses, First dose on Fri05/18/22 at 0900, Last dose on Fri05/18/22 at 2100, Hold for RASS Less than -1: Not fully alert, but has sustained (more than 10 seconds) awakening, with eye contact, to voice. Hold for HR Less than 60 bpm. Hold for SBP Less than 90 mmHg., Routine Given 05/18/2022 9:00 AM EDT 8.1 mg polyethylene glycoL (Miralax) packet 17 g Given 05/21/2022 8:15 AM EDT 17 g 17 g, Oral, 2 TIMES DAILY, First dose on Fri05/16/22 at 2100, Until Discontinued, Routine Given 05/20/2022 9:32 PM EDT 17 g Given 05/19/2022 8:38 AM EDT 17 g potassium chloride 10 mEq in New Bag 05/17/2022 9:28 AM EDT 10 mEq 100 mL/hr sterile water 100 mL infusion 10 mEq, Intravenous, ONCE, 1 dose, On Fri05/17/22 at 0845, Administer over 60 Minutes, Warning Vesicant/Irritant Medication potassium chloride ER (K-Dur/Klor-Con) Given 05/17/2022 11:31 AM EDT 20 mEq tablet 20 mEq 20 mEq, Oral, ONCE, 1 dose, On Fri05/17/22 at 1200, 20 mEq tablet may be dissolved in water for administration, Routine rivaroxaban (Xarelto) tablet 20 mg Given 05/21/2022 2:08 PM EDT 20 mg 20 mg, Oral, DAILY, First dose on Fri05/21/22 at 1415, Until Discontinued, Take with food, Routine rosuvastatin (Crestor) tablet 40 mg Given 05/21/2022 8:16 AM EDT 40 mg 40 mg, Oral, EVERY EVENING, First dose on Fri05/16/22 at 0900, Until Discontinued, Routine Given 05/20/2022 8:53 AM EDT 40 mg Given 05/19/2022 8:38 AM EDT 40 mg sodium chloride 0.9 % (flush) (BD PosiFlush Given 05/21/2022 8:1 9 AM EDT 5 mLs Normal Saline 0.9) flush 5 mL 5 mL, Intravenous, 2 TIMES DAILY, First dose on Fri05/15/22 at 2245, Until Discontinued, Recovery (Recovery-Hospital Unit), Routine Given 05/19/2022 8:10 PM EDT 5 mLs Given 05/18/2022 8:46 PM EDT 5 mLs sodium chloride 0.9% infusion Continued Bag 05/20/2022 7:00 PM 150 mL/hr 150 mL/hr 150 mL/hr, Intravenous, EDT CONTINUOUS, Starting on Fri05/20/22 at 1915, Until Fri05/20/22 at 2214, Recovery (Recovery-Hospital Unit) tamsulosin (Flomax) capsule 0.4 mg Given 05/21/2022 8:17 AM EDT 0.4 mg 0.4 mg, Oral, DAILY, First dose on Brandi 05/16/22 at 0900, Until Discontinued, DO NOT CRUSH OR OPEN, Routine Given 05/20/2022 8:53 AM EDT 0.4 mg Given 05/19/2022 8:38 AM EDT 0.4 mg thiamine (Vitamin B1) tablet 100 mg Given 05/21/2022 8:16 AM EDT 100 mg 100 mg, Oral, DAILY, First dose on Brandi 05/16/22 at 0900, Until Discontinued, Routine Given 05/20/2022 8:53 AM EDT 100 mg Given 05/19/2022 8:38 AM EDT 100 mg valsartan (Diovan) tablet 40 mg Given 05/21/2022 8:16 AM EDT 40 mg 40 mg, Oral, 2 TIMES DAILY, First dose on [facility] 05/18/22 at 2100, Until Discontinued, Routine Given 05/20/2022 8:06 PM EDT 40 mg Given 05/20/2022 8:53 AM EDT 40 mg documented in this encounter Active and Recently Administered Medications Times are shown in EDT. Scheduled Medication Order 05/19/2022 05/20/2022 05/21/2022 aspirin EC tablet 81 mg 0816 (Gi naveen - Provider: Etta Don, RN) 81 mg, Oral, DAILY, First dose on 10/31 at 0900, Until Discontinued, Recovery (Recovery-Hospital Unit), Routine clopidogreL (Plavix) tablet 75 mg 0816 (Given - Provider: Etta Don, RN) 75 mg, Oral, DAILY, First dose on 10/31 at 0900, Until Discontinued, Recovery (Recovery[facility]Hospital Unit), Routine folic acid (Folvite) tablet 1,000 mcg 0838 (Given - Pr ovider: Caroline Zamora, RN) 0852 (Given - Provider: Barbie Joyce RN)1750 ([facility] Hold - Provider: Admin Adt - Reason: Transfer to a Procedural area)1955 ([facility] Unhold - Provider: Admin Adt) 15 (Given - Provider: Etta contreras, RN) 1,000 mcg, Oral, DAILY, First dose on 05/16/22 at 0900, Until Discontinued, Routine metoprolol tartrate (Lopressor) tablet 12.5 mg (CANCEL ED) 0838 (Given - Provider: Caroline Zamora, RN)2008 (Given - Provider: Nuris Lester RN) 0853 (Given - Provider: Barbie Joyce RN)1750 ([facility] Hold - Provider: Admin Adt - Reason: Transfer to a Procedural area)1955 ([facility] Unhold - Provider: Admin Adt)2004 (Given - Provider: Tere Blankenship RN) 0817 (Given - Provider: Etta Don RN) 12.5 mg, Oral, EVERY 12 HOURS SCHEDULED (2 times per day), First dose on Fri05/18/22 at 2100, Until Discontinued, Routine metoprolol tartrate (Lopressor) tablet 12.5 mg 113 (Given - Provider: Etta Don RN) 12.5 mg, Oral, EVERY 6 HOURS SCHEDULED, First dose (after last modification) on Fri05/21/22 at 1200, Until Discontinued, Routine multivitamin with minerals (Thera M) tablet 1 tablet 0 838 (Given - Provider: Caroline Zamora RN) 0852 (Given - Provider: Barbie Joyce RN)1750 ([facility] Hold - Provider: Admin Adt - Reason: Transfer to a Procedural area)1955 ([facility] Unhold - Provider: Admin Adt) 0816 (Given - Provider: Etta contreras RN) 1 tablet, Oral, DAILY, First dose on Fri05/16/22 at 0900, Until Discontinued, Routine pantoprazole EC (Protonix) tablet 40 mg 40 mg, Oral, DAILY, First dose on Fri at 0900, Until Discontinued, DO NOT CRUSH OR OPEN, Routine polyethylene glycoL (Miralax) packet 17 g 0838 (Given - Provider: Caroline Zamora RN)2099 (Not Given - Provider: Nuris Lester RN - Reason: Patient/family refused) 899 (Not Given - Provider: Barbie joseph RN - Reason: NPO)1750 ([facility] Hold - Provider: Admin Adt - Reason: Transfer to a Procedural area)1955 ([facility] Unhold - Provider: Admin Adt)2131 (Given - Provider: Tere Blankenship RN) 15 (Given - Provider: Etta contreras RN) 17 g, Oral, 2 TIMES DAILY, First dose on Fri05/16/22 at 2100, Until Discontinued, Routine rivaroxaban (Xarelto) tablet 20 mg 140 (Given - Provider: Etta Don RN) 20 mg, Oral, DAILY, First dose on 10/31 at 1415, Until Discontinued, Take with food, Routine rosuvastatin (Crestor) tablet 40 mg 08 (Given - Prov ider: Caroline Zamora RN) 08 (Given - Provider: Barbie Joyce RN)1750 ([facility] Hold - Provider: Admin Adt - Reason: Transfer to a Procedural area)1955 ([facility] Unhold - Provider: Admin Adt) 815 (Given - Provider: Etta contreras RN) 40 mg, Oral, EVERY EVENING, First dose o n Fri05/16/22 at 0900, Until Discontinued, Routine sodium chloride 0.9 % (flush) (BD PosiFlush Normal Ubaldo ine 0.9) flush 5 mL 899 (Not Given - Provider: Caroline Zamora RN - Reason: Contraindicated)2009 (Given - Provider: Nuris Lester, DION) 899 (Not Given - Provider: Barbie Joyce RN - Reason: See comment - Comment: PIV infusing)2099 (Not Given - Provider: Tere Blankenship RN - Reason: Order parameters not met - Comment: infusing) 818 (Given - Provider: Etta contreras RN) 5 mL, Intravenous, 2 TIMES DAILY, First dose on Fri05/15/22 at 2245, Until Discontinued, Recovery (Recovery-Hospital Unit), Routine tamsulosin (Flomax) capsule 0.4 mg 0838 (Given - Provi bre: Caroline Zamora RN) 0853 (Given - Provider: Barbie Joyce , DION)1750 ([facility] Hold - Provider: Admin Adt - Reason: Transfer to a Procedural area)1955 ([facility] Unhold - Provider: Admin Adt) 0817 (Given - Provider: Etta contreras, RN) 0.4 mg, Oral, DAILY, First dose on Brandi at 0900, Until Discontinued, DO NOT CRUSH OR OPEN, Routine thiamine (Vitamin B1) tablet 100 mg 0838 (Given - Prov ider: Caroline Zamora RN) 0853 (Given - Provider: Barbie Joyce RN)1750 (JAN Hold - Provider: Admin Adt - Reason: Transfer to a Procedural area)1955 ([facility] Unhold - Provider: Admin Adt) 0816 (Given - Provider: Etta contreras RN) 100 mg, Oral, DAILY, First dose on Brandi at 0900, Until Discontinued, Routine valsartan (Diovan) tablet 40 mg 0838 (Given - Provider : Caroline Zamora, DION)2008 (Given - Provider: Nuris Lester RN) 0853 (Given - Provider: Barbie Joyce RN)1750 ([facility] Hold - Provider: Admin Adt - Reason: Transfer to a Procedural area)1955 ([facility] Unhold - Provider: Admin Adt)2005 (Given - Provider: Tere Blankenship RN) 0816 (Given - Provider: Etta contreras RN) 40 mg, Oral, 2 TIMES DAILY, First dose o n 05/18/22 at 2100, Until Discontinued, Routine Continuous Medication Order 05/19/2022 05/20/2022 05/21/2022 heparin (porcine) 50 units/mL in sodium chloride 0.45% 500 mL infusion 1935 (New Bag - Provider: Nuris Lester, DION) 1599 (New Bag - Provider: Barbie Joyce RN)1750 ([facility] Hold - Provider: Admin Adt - Reason: Transfer to a Procedural area)1955 ([facility] Unhold - Provider: Admin Adt) 021 (Restarted - Provider: Tere Blankenship RN - Comment: 4 hours since tr band off, per MD ashraf)1301 (Rate/Dose Verify - Provider: Etta Don RN)1743 (Due: Stopped) 0-5,000 Units/hr (0-100 mL/hr), Intraven ous, CONTINUOUS, Starting on Brandi 05/16/22 at 0845, Until 05/21/22 at 1523, Begin infusion at 1,200 units per hr (15 units/kg/hr). Maximum initial infusion rate i 2000 (No t Given - Provider: Tere Blankenship RN - Reason: Contraindicated - Comment: TR band in place) s 2,000 units/hr Infusion doses are roun ded to the [...] Heparin UFH Level - Per Protocol, Routine sodium chloride 0.9% infusion () 1900 (Continued Bag - Provider: Cassy Schultz RN)2200 (Stopped - Provider: Tere Blankenship RN) 150 mL/hr, Intravenous, CONTINUOUS, Star ting on Fri05/20/22 at 1915, Until Fri05/20/22 at 2214, Recovery (Recovery-Hospital Unit) PRN Medication Order 05/19/2022 05/20/2022 05/21/2022 acetaminophen (Tylenol) tablet 650 mg 17 51 (J[facility] Hold - Provider: Admin Adt - Reason: Transfer to a Procedural area)1955 ([facility] Unhold - Provider: Admin Adt) 650 mg, Oral, EVERY 6 HOURS PRN, Startin g on Brandi 05/16/22 at 1606, Until Fri05/21/22 at 1743, Pain, Maximum dose of acetaminophen is 4000 mg from all sources in 24 hours. When ordered for pain, acetaminop hen should be given even when other orde red pain medications are indicated. , Routine alum-mag hydroxide-simeth (Maalox) (40 mg-40 mg-4 mg/mL) ora l liquid 10 mL 1903 (Given - Provider: Cassy Schultz RN - Comment: given by other) 10 mL, Oral, 3 TIMES DAILY PRN, Starting on Fri05/20/22 at 1850, Until Fri05/21/22 at 1743, Heartburn, Routine aspirin chewable tablet (CANCELED) 174 (Given - Provider: Flavia Schuler RN) ONCE PRN, Starting on Fri05/20/22 at 174 6, Until Fri05/20/22 at 1842, Intra- Operative (Intra-Procedure), Routine bisacodyL (Dulcolax) suppository 10 mg 1 751 (JAN Hold - Provider: Admin Adt - Reason: Transfer to a Procedural area)1955 ([facility] Unhold - Provider: Admin Adt) 10 mg, Rectal, DAILY PRN, Starting on Th u 05/16/22 at 1604, Until Fri05/21/22 at 1743, Constipation, Routine clopidogreL (Plavix) tablet (CANCELED) 1 746 (Given - Provider: Flavia Schuler RN) ONCE PRN, Starting on Fri05/20/22 at 174 6, Until Fri05/20/22 at 1842, Intra- Operative (Intra-Procedure), Routine fentaNYL (pf) (50 mcg/mL) multi-dose injection (CANCELED) 171 (Given - Provider: Abundio Servin MD) ONCE PRN, Starting on Fri05/20/22 at 171 4, Until Fri05/20/22 at 1842, Intra- Operative (Intra-Procedure), Routine heparin (porcine) (1,000 units/mL) injection 0-8,000 Units 175 (JAN Hold - Provider: Admin Adt - Reason: Transfer to a Procedural area)1955 ([facility] Unhold - Provider: Admin Adt) 0-8,000 Units, Intravenous, BOLUS PER [facility] PROTOCOL, Starting on Fri05/16/22 at 0758, Until Fri05/21/22 at 1523, Per Protocol, START ADJUSTMENT SCHEDULE 6 HOURS AFTER STARTING INFUSION Bolus doses are rounded to the nearest 100 units. I f Heparin UFH Level is: - Less than 0.1 international unit/mL: Bolus 70 units/kg (Maximum of 8,000 units) = Bolus 5,600 units - 0.1 - 0.19 International unit/mL: Bolus 35 units/kg (Maximum of 4,000 unit s) = Bolus 2,800 units - Equal to or greater than 0.2 international unit/mL: No Bolus, Routine heparin (porcine) (1,000 units/mL) injection (CANCELED) 172 (Given - Provider: Flavia Schuler, RN)174 (Given - Provider: Negra Bailey RN) ONCE PRN, Starting on Fri05/20/22 at 172 6, Until Fri05/20/22 at 1842, Cath (Intra-Procedure), Routine iohexoL (Omnipaque) (350 mg/mL) solution (CANCELED) 184 (Given - Provider: Abundio Servin MD) ONCE PRN, Starting on Fri05/20/22 at 184 1, Until Fri05/20/22 at 1842, Cath (Intra-Procedure), Routine ipratropium-albuteroL (Duoneb) 0.5 mg-3 mg(2.5 mg base)/3 mL nebulizer solution 3 mL 175 (JAN Hold - Provider: Dominick armando Adt - Reason: Transfer to a Procedural area)1955 ([facility] Unhold - Provider: Admin Adt) 3 mL, Nebulization, 4 TIMES DAILY PRN, S tarting on Fri05/15/22 at 1717, Until Fri05/21/22 at 1743, Wheezing, Routine lidocaine (Xylocaine) 1% (10 mg/mL) injection 3 mg 3 mg (0.3 mL), Subcutaneous, ONCE PRN, 1 dose, Starting on Fri05/15/22 at 2147, Until Fri05/21/22 at 1743, for discomfort with PIV insertion, Recovery (Recovery-Hospital Unit), Routine metoprolol (LOPRESSOR) injection 5 mg 604 (Given - Pr ovider: Emily Sauceda RN) 1750 ([facility]AN Hold - Provider: Admin Adt - R lexie: Transfer to a Procedural area)1955 ([facility] Unhold - Provider: Admin Adt) 5 mg, Intravenous, EVERY 5 MIN PRN, Star ting on Fri05/19/22 at 0506, Until Fri05/21/22 at 1743, Elevated Heart Rate, up to 3 doses for HR >110 midazolam (pf) (Versed) (1 mg/mL) multi-dose injection (CAN ELED) 1713 (Given - Provider: Abundio Servin MD) ONCE PRN, Starting on Fri05/20/22 at 171 4, Until Fri05/20/22 at 1842, Cath (Intra-Procedure), Routine ondansetron (pf) (Zofran) (2 mg/mL) injection 4 mg(Linked Group 1) 4 mg, Intravenous, EVERY 8 HOURS PRN, St arting on Fri05/15/22 at 2147, Until Fri05/21/22 at 1743, Nausea, May repeat times one in 30 minutes if ineffective. If multiple antiemetics are ordered, use on dansetron first, Recovery (Recovery-Hospital Unit) ondansetron (Zofran) tablet 4 mg(Linked Group 1) 4 mg, Oral, EVERY 8 HOURS PRN, Starting on Fri05/15/22 at 2147, Until Fri05/21/22 at 1743, Nausea, Vomiting, If multiple antiemetics are ordered, use ondansetron first. PO Preferred. If patient unab le to take PO, may give IV if ordered. M ay repeat times one in 45 minutes if ineffective., Recovery (Recovery-Hospital Unit), Routine oxyCODONE (Roxicodone) tablet 10-15 mg(Linked Group 2) 1750 (JAN Hold - Provider: Admin Adt - Reason: Transfer to a Procedural area)1955 ([facility] - Provider: Admin Adt) 10-15 mg, Oral, EVERY 4 HOURS PRN, Start ing on Fri05/17/22 at 0655, Until Fri05/21/22 at 1743, Pain, severe pain (7-10), Initial dose 10mg. If pain control not adequate in 60 minutes, give additional 5mg, Routine oxyCODONE (Roxicodone) tablet 5-10 mg(Linked Group 2) 1750 (JAN Hold - Provider: Admin Adt - Reason: Transfer to a Procedural area)1955 ([facility] Unhold - Provider: Admin Adt) 5-10 mg, Oral, EVERY 4 HOURS PRN, Starti ng on Fri05/17/22 at 0655, Until Fri05/21/22 at 1743, Pain, moderate pain (4-6), Initial dose 5mg. If pain control not adequate in 60 minutes, give additional 5mg, Routine sodium chloride 0.9 % (flush) (BD PosiFlush Normal Saline 0.9) f lush 5-20 mL 5-20 mL, Intravenous, EVERY 1 MIN PRN, S tarting on Fri05/15/22 at 2147, Until Fri05/21/22 at 1743, flush, Flush pertains to all indwelling lines. Flush per protocol found in the job aid using the link pr ovided on this medication record., Recovery (Recovery-Hospital U nit), Routine Linked Groups Order Group 1: ondansetron (Zofran) tablet 4 mgJump to med 4 mg, Oral, EVERY 8 HOURS PRN, Starting on Fri05/15/22 at 2147, Until Fri05/21/22 at 1743, Nausea, Vomiting
If multiple antiemetics are ordered, use ondansetron first. PO Preferre d. If patient unable to take PO, may giv e IV if ordered. May repeat times one in 45 minutes if ineffective.
Recovery (Recovery-Hospital Unit), Routine Or ondansetron (pf) (Zofran) (2 mg/mL) injection 4 mgJump to med 4 mg, Intravenous, EVERY 8 HOURS PRN, St arting on Fri05/15/22 at 2147, Until Fri05/21/22 at 1743, Nausea
May repeat times one in 30 minutes if ineffective. If multiple antiemetics ar e ordered, use ondansetron first
Re covery (Recovery-Hospital Unit) Group 2: oxyCODONE (Roxicodone) tablet 5-10 mgJump to med 5-10 mg, Oral, EVERY 4 HOURS PRN, Starti ng on Fri05/17/22 at 0655, Until Fri05/21/22 at 1743, Pain, moderate pain (4-6)
Initial dose 5mg. If pain control not adequate in 60 minutes, give additional 5mg
Routine Or oxyCODONE (Roxicodone) tablet 10-15 mgJump to med 10-15 mg, Oral, EVERY 4 HOURS PRN, Start ing on Fri05/17/22 at 0655, Until Fri05/21/22 at 1743, Pain, severe pain (7-10)
Initial dose 10mg. If pain control not adequate in 60 minutes, give additional 5mg
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
--- OUTSIDE RECORDS SUMMARY | 2022-06-23 00:18 | XMS_ITS | Encounter Summary ---
:1940 [place] [address] Care Team Providers Name Role Phone Bobby Das MD Primary Care Provider Reason for Visit Reason Comments Left Leg Pain Auth/Cert Specialty Diagnoses / Procedures Referred By Contact Refer red To Contact Diagnoses Limb ischemia LLE thrombus Fito Summers MD [facility] [place] [address] Referral ID Status Reason Start Date Expiration Date Visits Requ ested Visits Authorized [id number] 1 1 Encounter Details Date Type Department Care Team Description 05/20/2022 Surgery Saddle And Harness Maker Abundio Mcguire , CARDIAC CATHETERIZATION [facility] [place] [address] CARDIOLOGY [phone] [place], [place] [address] (Wo rk) Social History Tobacco [...] Sign Reading Time Taken Comments Blood Pressure 109/64 05/20/2022 3:36 PM EDT Pulse 106 05/20/2022 3:36 PM EDT Temperature 36.8 ??C (98.3 ??F) 05/20/2022 3:36 PM EDT Respiratory Rate 18 05/20/2022 3:36 PM EDT Oxygen Saturation 90% 05/20/2022 3:36 PM EDT Inhaled Oxygen Concentration - - Weight 79.8 kg (175 lb 14.8 oz) 05/15/2022 6:00 PM EDT Height 172 cm (5' 7.72) 05/15/2022 [...] onset Afib who presents in transfer from [facility] with acute limb ischemia of the LLE. [...] emergently went to the OR for L COMPUTER FORENSIC SPECIALIST transverse arteriotomy and primary repair, thromboembolectomy of L SFA/PFA/COMPUTER FORENSIC SPECIALIST, reperfusion venous drainage for 250 cc, and [...] Discharge Condition: Good Discharge to: Home with [address] [address] Future Appointments and Orders Future Appointments and Orders Future Appointments Provider Department Dept Phone 05/23/2022 10:30 AM Loretta Cohen MD Dermatology at [facility] Arrive at: Machine Wi[facility] [address] [place] [address] 06/07/2022 1:30 PM Gail Rae APRN Vascular Surgery at [facility] Arrive at: [facility] [address] [phone] 06/13/2022 7:30 AM Edson [place]os [place] Vascular Lab at [facility] Arrive at: Machine [facility] Area 06/13/2022 8:00 AM Fito Summers MD Vascular Surgery at [facility] Arrive at: Machine [facility]per Area 3V [phone] 06/13/2022 10:00 AM Alan Reid MD Cardiology at [facility] Arrive at: Machine [facility] Area [phone] Future Orders Complete By Expires Ziopatch 48 Hrs-15 Days [SIU7809 CPT(R)] 05/21/2022 11/20/2022 Process Instructions: Scheduling Instructions: Comments: Questions: Does the patient have a pacemaker? If yes provide HI/LO settings: Apply for 7 or 14 days?: 7 Where will study be performed?: [facility] JOSSELYN, legs, multiple levels [VAS8 Custom] 06/21/2022 (Approximate) 12/21/2022 Process Instructions: There is no in-house vascular laboratory mechanic helper available on weeknights (5pm-8am), weekends, or holidays. IF THIS IS A REQUEST FOR AN EMERGENT STUDY DURING THOSE HOURS, please have the senior provider responsible for the patient page the Vascular Surgery Fellow/Senior Resident rehabilitation teacher to discuss options. Scheduling Instructions: Questions: Indication for study/signs & symptoms: ALI s/p L fem cutdown with thromboembolectomy Question to be answered: Perfusion to feet? Please check toe pressure Preferred location?: [facility] Referral to Cardiology [REF12 Custom] As [...] Koko Zamora for admission to Home Health. [address] [place] [phone] (home) Date of : 1940 Inpatient DOCUMENTATION FOR VNA SERVICES (INCLUDING THOSE PATIENTS WITH MEDICARE COVERAGE REQUIRING HOME VNA SERVICES AND/OR HOSPICE SERVICES) PATIENT'S LOCATION: Koko Zamora [address] [place] [phone] (home) Cell: No relevant phone numbers on file. Commuter Train Operator's Name: Koko In discussion with the attending physician, it is certified that this patient is under their care and that they, or a Nurse Practitioner,Clinical Nurse specialist or Physician Manager Membership who is working directly with them, had a face to face encounter that meets the physician face to face encounter requirements with this patient on 05/21/2022 ( please enter DC date here) The encounter [...] for managing ADL's. HOME HEALTH CARE AGENCY: [facility]. [address] [place] [address] Start of care: Within 24 to 48 [...] obtained from this patient'sPCP: Bobby Das MD [address] [place] [address] [place] [address] All VNA agencies which cover the area of patient's [...] For any problems or questions please call [phone] For issues on weeknights after 5pm and weekends please call [phone] and ask for the Vascular Fellow rehabilitation teacher. JOSEE Santiago Vascular Surgery 05/21/2022 documented in [...] For any problems or questions please call [phone] For issues on weeknights after 5pm and weekends please call [phone] and ask for the Vascular Fellow rehabilitation teacher. documented in this encounter Medications at Time [...] 04/12/20 21 (FLONASE) 50 mcg/actuation Nare route Bowie, Suspension daily as needed. fluorouraciL (EFUDEX) 5 [...] onset Afib who presents in transfer from [facility] with acute limb ischemia of the LLE. [...] status, full code. JOSEE Santiago 05/21/2022 Pager: [phone] Brannon Isaacs, PT - 05/21/2022 10:35 AM EDT Physical Therapy Note Treatment Number PT: 2 Patient profile: Koko Zamora is a 81 y.o. male admitted on 05/15/[address] Fito Summers MD. Per notes, pt is 81 y.o.??male??3 Days Post-Op??Left [...] plan as stated. Time IN / OUT: 3437-1108 Total Minutes, Physical Therapy: 25 Billing Code: 2 BOSTON Isaacs DPT Pager: [phone] Physical Therapy Inpatient Rehabilitation Department Wellington Jean [...] from 05/15/2022 in Intermediate Cardiac Care Unit [facility] Office Visit from 04/17/2021 in Pain and Spine Center at [facility] Weight 79.8 kg (175 lb 14.8 oz) [...] 3.5 4.5 CL 103 102 108* CO2 22 BUN 11 12 12 CREATININE 0.63* [...] and plan of care per Dr. Mcnamara (electrical lineworker). Please refer to her note above for [...] limb ischemia (thromboembolic) and he is a shelter smoker (1/2 ppd, recommend nicotine patch). His [...] w walker, discharge planning as possible. Tere Blankenship RN Wellington Jean MD - 05/20/2022 4:32 [...] to Hosp-Admission (Current) from 05/15/2022 in 4 [facility] Office Visit from 04/17/2021 in Pain and Spine Center at [facility] Weight 79.8 kg (175 lb 14.8 oz) [...] findings andplan of care per Dr. Mcnamara (electrical lineworker). Please refer to her note above for [...] a mitral repair in 2000 (not at [facility]) with no CAD at that time. Currently, [...] AF and the first documented HR at [facility] was 125 bpm (presented to an an [...] onset Afib who presents in transfer from [facility] with acute limb ischemia of the LLE. [...] management following Dottie Hill APRN 05/20/2022 Pager: [phone] Laney Atkins RN - 05/20/2022 1:14 AM EDT Pt Koko transferred to room from [facility]. A&Ox4, oriented to room and call boo. Masimo and telemetry placed. In agreement with assessment as documented this evening by Nuris ASHLEY. No complaints at this time. Pt aware of NPO status and plan for cardiac cath in AM. Urinal provided. Resting comfortably in bed. Nuris Lester RN - 05/20/2022 1:09 AM EDT Pt. Transferred to [facility]. RN accompanied patient to floor and handed off to [facility] RN Dottie Hill APRN - 05/19/2022 10:02 AM EDT Vascular Surgery Progress Note Koko Zamora is a 81 y.o. male with w new onset Afib who presents in transfer from [facility] with acute limb ischemia of the LLE. ?? The patient had sudden pain starting at 630 05/15/22, he presented [facility] where he was placed on heparin. [...] management following Dottie Hill APRN 05/19/2022 Pager: [phone] Emily Sauceda RN - 05/19/2022 6:28 AM EDT OUTCOME EVALUATION NOTE: OUTCOME SUMMARY: Patient AOx4, VSS on RA. Afib on tele. HR controlled w/ PRN metop, given x2. Denies CP, SOB, n/v. See flowsheets for NVC. Dressings to LLE CDI, prevena WV to groin intact. Voiding to urinal. LBM MEDICAL SALES CONSULTANT, patient stating he will maybe try the [...] ADLs]: Eyes on Surveillance [continuous indirect monitoring]: Eda, Tele, bed alarm, safety check Patient-specific fall prevention interventions for sensory deficits provided, if applicable: [X] N/A Nuris Lester RN - 05/18/2022 6:09 PM EDT OUTCOME [...] adequately without difficulty to bedside urinal. LBM MEDICAL SALES CONSULTANT. Up to chair this AM with nursing staff. Worked with PT, tolerated well. Diet changed to regular at 1800.Plan is for cardiac cath on Friday. PLAN MOVING FORWARD: Bleeding precautions Pain management neurovascular checks PT/OT bottle labeler INDIVIDUALIZED FALL PREVENTION INTERVENTIONS: Patient-specific fall risk [...] onset Afib who presents in transfer from [facility] with acute limb ischemia of the LLE. [...] mL Intravenous BID ??? PHENobarbitaL 0.12 mg/kg/dose ([place]) Oral BID ??? thiamine 100 mg Oral [...] management following Dottie Hill APRN 05/18/2022 Pager: [phone] Brannon Isaacs, PT - 05/18/2022 10:00 AM EDT Physical Therapy Evaluation Patient profile: Koko Zamora is a 81 y.o. male admitted on 05/15/[address] Fito Summers MD. Per notes, pt is 81 y.o. male 3 [...] BIOPSY SPINE 07/20/2019 IR Biopsy Spine 07/20/2019 Bboby Marshall MD [facility] INTERVENTIONL RAD ??? IR VERTEBROPLASTY LUMBAR MULTIPLE LEVELS 07/20/2019 IR Vertebroplasty Lumbar Multiple Levels 07/20/2019 Bobby Marshall MD [facility] INTERVENTIONL RAD ??? IR VERTEBROPLASTY THORACIC SINGLE LEVEL 10/25/2020 IR Vertebroplasty Thoracic Single Level 10/25/2020 Matt Chisholm MD [facility] INTERVENTIONL RAD ??? PRO EMBLC/THRMBC FEMORAL POPLITEAL AORTO-ILIAC ARTERY Left 05/15/2022 EMBOLECTOMY OR THROMBECTOMY, FEMOROPOPLITEAL, AORTOILIAC ARTERY BY LEG INCISION (WRVU 19.48) performed by Fito Summers MD at [facility] MAIN OR Social History: Pt lives [...] in this evaluation. Time IN / OUT: 2816-9394 Total Minutes, Physical Therapy: 30 Billing Code: Basilio Isaacs, PT Pager: [phone] Physical Therapy Inpatient Rehabilitation Department Emily Sauceda RN - 05/18/2022 4:34 AM EDT OUTCOME EVALUATION NOTE: OUTCOME SUMMARY: Patient AOx4, VSS on 2LNC. Afib on tele. HR above 120, MD aware, PRN IV metop given x1, HR returned to 90's-low 100's. Denies CP, SOB, n/v. See flowsheets for NVC. Dressings to LLE CDI, prevena WV to groin intact. Voiding to urinal. LBM MEDICAL SALES CONSULTANT. Heparin gtt therapeutic. Pain controlled. Patient sleeping [...] Closure of fasciotomies performed at bedside by , wrapped with guaze dressing. Denies n/t to BLE. 2+ dorsal pulses noted. Heparin drip infusing at 1200 units/hr. UFH within therapeutic range, next labs due with morning labs. Voiding adequately without difficulty to bedside urinal. LBM MEDICAL SALES CONSULTANT. Patient not OOB this shift. Currently NPO awaitingprocedure in cardiac cath technician. PLAN MOVING FORWARD: Bleeding precautions Pain management neurovascular checks PT/OT NPO for cardiac cath technician INDIVIDUALIZED FALL PREVENTION INTERVENTIONS: Patient-specific fall [...] the Emergency Department as a transfer from [facility] with left lower extremity limb ischemia. He went to [facility] and was startedon heparin and transferred to [facility] for evaluation by vascular surgery with subsequent [...] he will will be going to the cardiac cath technician for evaluation. Will defer PT eval at present but will see as ordered post cardiac catheritizaton. Social Hx:Pt lives with his Ursula in [place], [place] in a 2 level home in [...] WBAT LLE LISBET HERMAN PT Pager # [phone] In-Pt Rehab Medicine Dottie Hill APRN - 05/17/2022 7:42 AM EDT Vascular Surgery Progress Note Koko Zamora is a 81 y.o. male with w new onset Afib who presents in transfer from [facility] with acute limb ischemia of the LLE. [...] mL Intravenous BID ??? PHENobarbitaL 0.24 mg/kg/dose ([place]) Oral BID Followed by ??? [START ON 05/18/2022] PHENobarbitaL 0.12 mg/kg/dose ([place]) Oral BID ??? thiamine 100 mg Oral [...] Koko Zamora is a 81 y.o. male 2 Days [...] management following Dottie Hill APRN 05/17/2022 Pager: [phone] Sary Dos Santos, RN - 05/17/2022 12:16 [...] Knowledge Exchangeat Bedside, Bed Alarm Set Candelaria Medellin RN - 05/16/2022 4:53 PM EDT Pt stated his pain 0-6/10. He had a regular diet, tolerated well, denied nausea. Cooper removed in the AM. Pt voiding adequately w/ max PVR 190. No BM this shift. Heparin infusion maintained @ 1200units/hr. Next UFH due @ 2230. Echo completed in AM. Lft lower drsg CDI. T Anne, Edward Petty MD - 05/16/2022 3:33 PM EDT Vascular Surgery Progress Note Koko Zamora is a 81 y.o. male with w new onset Afib who presents in transfer from [facility] with acute limb ischemia of the LLE. [...] mL Intravenous BID ??? PHENobarbitaL 0.48 mg/kg/dose ([place]) Oral BID Followed by ??? [START ON 05/17/2022] PHENobarbitaL 0.24 mg/kg/dose ([place]) Oral BID Followed by ??? [START ON 05/18/2022] PHENobarbitaL 0.12 mg/kg/dose ([place]) Oral BID ??? thiamine 100 mg Oral [...] management following Edward Rodríguez MD 05/16/2022 Pager: [phone] Sary Dos Santos RN - 05/16/2022 12:52 [...] 7:15 PM EDT Surgery Post Op Check Kokoslick Zamora is a 81 y.o. male status [...] Gutierrez RN - 05/15/2022 6:49 PM EDT 163 Patient admitted to PACU. Hand off received from Torres Aguilar CRNA. care assumed. Hypotensive by A-line, waveform dampened. Will rely on cuff. Assessments as documented. Monitors on, alarms audible and individualized to patient. 1929 PACU D/C criteria met 2129 Hand off to DION Ramirez ellington documented in this encounter H&P Notes Kerry [...] kidney disease or diabetes. NPO status: Since 7/10 PM Outpatient Medications Marked as Taking for [...] onset Afib who presents in transfer from [facility] with acute limb ischemia of the LLE. [...] IR Biopsy Spine 07/20/2019 Bobby Marshall MD [facility] INTERVENTIONL RAD ??? IR VERTEBROPLASTY LUMBAR MULTIPLE LEVELS 07/20/2019 IR Vertebroplasty Lumbar Multiple Levels 07/20/2019 Bobby Marshall MD [facility] INTERVENTIONL RAD ??? IR VERTEBROPLASTY THORACIC SINGLE LEVEL 10/25/2020 IR Vertebroplasty Thoracic Single Level 10/25/2020 Matt Chisholm MD [facility] INTERVENTIONL RAD Social Hx: Social History [...] Refill ??? fluticasone propionate (FLONASE) 50 mcg/actuation Bowie, Suspension as needed. ??? fluorouraciL (EFUDEX) 5 [...] and consented. Tim Chicas MD 05/15/2022 Pager: [phone] documented in this encounter ED Notes Lc Harris PA - 05/15/2022 1:20 PM EDT ED Provider Note HPI: Koko Zamora is a 81 y.o. male with history of atrial fibrillation not on anticoagulation, and GI bleeding who presents to the Emergency Department as a transfer from [facility] with left lower extremity limb ischemia. Patient says that the symptoms started roughly 630 this morning when he developed severe pain in his left lower extremity. He went to [facility] and was started on heparin and transferred to [facility] for evaluation by vascular surgery. Review of [...] lower extremity earlier today and went to [facility] where it was determined that he had ischemia of the left lower extremity. Vascular surgery [facility] was contacted and he was transferred here [...] plan. Lc Harris PA 05/15/22 1328 Jaylene Esparza RN - 05/15/2022 10:15 AM EDT Pt. Arrived in system by Lc TRIPP and Vascular surgery to write orders before pt. Arrival. Pt. Arrived at [facility] by EMS at 1150, vascular team at [...] in an outpatient cardiac rehabilitation program at [facility] was discussed. Patient agrees to a referral to this program. Timing will depend on his recovery from Vascular surgery. He is going home w/VNA PT. I gave him the brochure for the program at [facility] for future reference. Care Management Discharge - [...] information for follow-up Home Health & Hospice, [place] [address] [place] [address] Transportation: family or friend will provide Functional [...] Type: *No Product type* / Secondary Insurance: [facility] Prescription Coverage: Yes This plan was formulated with input from patient and team. All are in agreement with plan. IP RS has communicated with [place] - for initial IMM. Shawn López RN (Jonas) RN/CM - Cellphone: [phone] Pager: [phone] Covering Service RN/CM Plan of Care - [...] catheterization, transferred in hospital bed accompanied by Saddle And Harness Maker RN, remains on telemetry monitoring. Heparin gtt turned off at time of transfer. 1825 - pt to transfer to [facility] 429 following cardiac cath, report given to DION Waldron. Family directedto ICCU locations, belongings gathered including glasses. PLAN MOVING FORWARD: Neurovasc/pulse checks Q4H Heparin gtt - next UFH /12 with am labs Bleeding precautions Remote telemetry, on at all times Pain management Discharge planning INDIVIDUALIZED FALL PREVENTION INTERVENTIONS: Patient-specific fall risk factors per assessment: [current deficits]: Pain, recent surgery, lines, bleeding px Assistance [level of assistance required for transfers and ambulation]: SBA FWW Supervision [direct monitoring required during toileting and ADLs]: Arms reach Surveillance [continuous indirect monitoring]: Masrayo, remote telemetry, purposeful rounding Patient-specific fall prevention [...] Type: *No Product type* / Secondary Insurance: [facility] Last Physical Therapy Recommendation: home with home health, home with supervision with None Last Occupational Therapy Recommendation: with Plan for discharge is: Home w/ Services Outpatient Agency/Support Group Needs: None Home Health Services: Registered Nurse, Physical Therapy, Occupational Therapy Agency Referrals: I have met with the patient to: ?? discuss discharge planning needs. ?? provide the [facility], Office of Care Management letter from the Mental Health Technician pertaining to rehab referrals. ?? provide a letter describing our affiliations within the [facility] and educate about their right to choose where referrals are sent. ?? provide a list of Home Health Agencies / Durable Medical Equipment vendors which serve their preferred geographic area. ?? provided patient with [facility] Star Quality Rating handout. They have requested referrals to: [facility]. [address] [place] [address] Note routed to a Carbon Paste Mixer Operator who will communicate referrals to facilities and provide any required information. Transportation: family or friend will provide Barriers to discharge: None Plan going forward: Patient is going for a cardiac cath today and plan will come from there. Patientwas recently seen by PT and they recommend VNA at time of discharge. [facility] was routed and pendedat this time. Care Management will continue to follow and assist with discharge planning and coordination of care as indicated. Anticipated Date of Discharge: 05/21/2022 Nataly RICHMOND RN Phone: [phone] Pager: [phone] Plan of Care - Laney Atkins RN [...] on Surveillance [continuous indirect monitoring]: Purposeful rounding, eda, call boo in reach Patient-specific fall prevention interventions for sensory deficits provided, if applicable: [X] N/A CPG GOAL OUTCOME EVALUATION: Consult Note - Jl Gutierrez MD - 05/17/2022 9:02 AM EDT Images from the original note were not included. [facility] [place] [address] [place] [address] INPATIENT CARDIOLOGY CONSULT NOTE Date of Consultation: 05/17/2022 Admit Date: 05/15/2022 Hospital Day 2 days Reason for Consult: New afib Active Problems: Active Hospital Problems Diagnosis Limb ischemia Resolved Hospital Problems No resolved problems to display. HPI: Koko Zamora is a 81 y.o. male with a PMHx significant for MVP (s/p MV repair 2000), tobacco use, HLD, who presented to [facility] from OSH on 05/15 with acute limb ischemia of LLE and was found to be in atrial fibrillation. Patient had sudden onset LLE pain on 05/15 and presented to [facility], where he was started on heparin and transferred to [facility]. Upon arrival to [facility], patient was in atrial fib with RVR [...] IR Biopsy Spine 07/20/2019 Bobby Marshall MD [facility] INTERVENTIONL RAD IR VERTEBROPLASTY LUMBAR MULTIPLE LEVELS 07/20/2019 IR Vertebroplasty Lumbar Multiple Levels 07/20/2019 Bobby Marshall MD [facility] INTERVENTIONL RAD IR VERTEBROPLASTY THORACIC SINGLE LEVEL 10/25/2020 IR Vertebroplasty Thoracic Single Level 10/25/2020 Matt Chisholm MD [facility] INTERVENTIONL RAD PRO EMBLC/THRMBC FEMORAL POPLITEAL AORTO-ILIAC ARTERY Left 05/15/2022 EMBOLECTOMY OR THROMBECTOMY, FEMOROPOPLITEAL, AORTOILIAC ARTERY BY LEG INCISION (WRVU 19.48) performed by Fito Summers MD at [facility] MAIN OR Allergies Allergen Reactions Aspirin Other (See Comments) GI bleed Out-Patient Medications: Medications Prior to Admission Medication Sig Dispense Refill Last Dose fluorouraciL (EFUDEX) 5 % Cream daily. CRESTOR 40 mg Tablet Take 40 mg by mouth daily. fluticasone propionate (FLONASE) 50 mcg/actuation Bowie, Suspension as needed. ascorbic acid, vitamin C, [...] 5 mL Intravenous BID PHENobarbitaL 0.24 mg/kg/dose ([place]) Oral BID Followed by [START ON 05/18/2022] PHENobarbitaL 0.12 mg/kg/dose ([place]) Oral BID thiamine 100 mg Oral Daily folic acid 1,000 mcg Oral Daily multivitamin with minerals 1 tablet Oral Daily heparin (porcine) infusion 1,200 Units/hr (05/17/22 7896) Family History: No family history on file. [...] ED to Hosp-Admission (Current) from 05/15/[address] [place] [address] Office Visit from 04/17/2021 in Pain and Spine Center at [facility] Weight 79.8 kg (175 lb 14.8 oz) [...] continue to follow Anne-Marie Larson MD Pager [phone] Clinic: [phone] 05/17/22 6:22 PM Initial Assessments - Ifrah [...] spouse would be surrogate decision maker per [place] surrogate decision making law. (Only good for 180 days) Any patient receiving care at [facility] must abide by [place] law. The hierarchy for surrogate decision making [...] (i) The agent with financial power of claims attorney or a conservator appointed in accordance [...] raised toilet seat Home Address confirmed as: [address] [place] [phone] Social & Family Supports: All names listed below confirmed with patient as Incorrect. Will notify toni to correct. Wifes address is same as and phone is [phone]. Extended Emergency Contact Information Primary Emergency Contact: Ursula Zamora Address: [address] [place] [address] [address] [place] [address] [facility] Relation: Spouse Current Care Provided [...] Type: *No Product type* / Secondary Insurance: [facility] Prescription Coverage: Yes Preferred Pharmacy: [id number] - [place], [place] - [address] [facility] [address] [facility] [place] [address] [id number] - [place], [place] - [address] [facility] [address] [facility] [address] [place] Status: Patient is a : unable to assess Primary Care Provider: Bobby Das MD [phone] Patient/Caregiver Goals of Treatment: to walk again Potential Needs for Transition of Care: none noted per 05/16 IDR Transportation: family will provide Transportation Anticipated: family or friend will provide Concerns to be Addressed: no discharge needs identified Assessment: Patient is admitted to vascular surg service for left lower extremity limb ischemia Plan: Per PT OT recommendations . Has used [employer] in the past. A member of the Care Management team will continue to monitor progress, follow for continuity of care and assist with transition of care planning. Ifrah Bell RN BSN [employer] OperatorHazmat Technician of Care Management Pager [phone] Brief Op Note - Erin Garza MD - 05/15/2022 5:04 PM EDT Brief Operative Note Patient Name: Koko Zamora : [id number] MR#: [id number] Case Date: 05/15/2022 Surgeon: Surgeon(s) and Role: [...] Garza MD - 05/15/2022 2:08 PM EDT [facility] [place] Patient Name: Koko Zamora : [id number] MR#: [id number] Case Date: 05/15/2022 Surgeon: Surgeon(s) and Role: [...] Office Visit Vascular Surgery Jing Ghosh APRN [facility] DR VASCULAR SURGERY [place], [place] [address] (Wo rk) 09/02/2022 Clinical Support Dermatology Thai Lynn MD [facility] DR JENNY BILLY-DERMAT [place], [place] [address] (Wo rk) 09/02/2022 Procedure visit Dermatology Jace Lynn MD [facility] DR JENNY BILLY-DERMAT [place], [place] [address] (Wo rk) 09/05/2022 Appointment Cardiology Trinity Reid MD [facility] CARDIOLOGY [place], [place] [address] (Wo rk) 09/05/2022 Office Visit Cardiology Trinity Reid MD [facility] CARDIOLOGY [place], [place] [address] (Wo rk) Scheduled Referrals Name [...] Component Value Ref Test Analysis Performed At [facility] Range Method Time Signature VB Text Department: Vascular Surgery Lab VASCUBASE Report Patient: [id number] (KOKO ZAMORA) CPT: 65707 Referring Physician: FITO SUMMERS ?? 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 Diabetes mellitus: no Findings: Right ?Pressure [...] Heparin (unfractionated) Level (05/21/2022 12:35 PM EDT) athologist Signature Heparin UFH 0.42 IU/mL [facility] LABORATORY Comment: Heparin (anti-Xa) levels should be [...] Organization Address City/State/[place] [address] Differential, Automated (05/21/2022 6:15 AM EDT) athologist Signature Neutrophils % 58.8 % [facility] LABORATORY Neutr Abs (ANC) 3.97 1.70 - [facility] 6.10 [facility] x10(3)/[facility] LABORATORY Lymphocytes % 25.2 % [facility] LABORATORY Lymphocytes Abs 1.7 0.9 - 3.2 [facility] x10(3)/[facility] LABORATORY Monocytes % 12.9 % [facility] LABORATORY Monocyte Abs 0.9 0.3 - 0.9 [facility] x10(3)/[facility] LABORATORY Eosinophils % 2.1 % [facility] LABORATORY Eosinophils Abs 0.1 0.0 - 0.4 [facility] x10(3)/[facility] LABORATORY Basophils % 0.4 % [facility] LABORATORY Basophils Abs 0.0 0.0 - 0.1 [facility] x10(3)/[facility] LABORATORY Immature Gran % 0.60 % [facility] LABORATORY Comment: Immature granulocytes(IG's)percentage an d absolute count will include metamyelocytes, myelocytes, and promyelo cytes. Blood smears from CBCs yielding IG's will be scanned manually for concor danlara. If this scan disagrees with the automated IG or if promyelocytes are not ed, a manual differential will be performed. Rain Gran Abs 0.04 0.00 - 0.04 x10(3)/[facility] LABORATORY Specimen Anatomical Collection Method Collection Time Receive d Time (Source) Location / / Volume Laterality Blood 05/21/2022 6:15 AM 6:38 EDT AM EDT Resulting Agency Comment Spec In Lab Edward Rodríguez MD HEMATOLOGY ORDERABLES Performing Organization Address City/State/ZIP Code Phon e Number [place] [id number] HOSPITAL LAB[address]ATORY Drive (ABNORMAL) Hemogram (05/21/2022 6:15 AM EDT) [facility] gist Method Time Signature WBC 6.8 4.0 - 9.5 [facility] x10(3)/[facility] LABORATORY RBC 3.59 (L) 4.58 - [facility] 5.54 [facility] x10(6)/[facility] LABORATORY Hemoglobin 11.8 (L) 13.7 - [facility] 16.5 g/dL [facility] LABORATORY Hematocrit 34.5 (L) 40.5 - [facility] 48.5 % [facility] LABORATORY MCV 96.1 (H) 82.9 - [facility] 93.1 [facility] LABORATORY MCH 32.9 (H) 27.5 - [facility] 32.1 pg [facility] LABORATORY MCHC 34.2 32.0 - [facility] 35.7 g/dL [facility] LABORATORY Platelets 198 145 - 357 [facility] x10(3)/[facility] LABORATORY RDWSD 44.9 36.0 - [facility] 45.0 [facility] LABORATORY RDWCV 12.6 11.4 - [facility] 13.8 % [facility] LABORATORY MPV 10.0 7.6 - 12.9 [facility] LABORATORY nRBC % Auto 0.3 % [facility] LABORATORY nRBC Abs Auto 0.020 (H) 0.000 - [facility] 0.000 [facility] x10(3)/[facility] LABORATORY Specimen Anatomical Collection Method Collection Time Receive d Time (Source) Location / / Volume Laterality Blood 05/21/2022 6:15 AM 2 6:38 EDT AM EDT Resulting Agency Comment Spec In Lab Edward Rodríguez MD HEMATOLOGY ORDERABLES Performing Organization Address City/State/[place] [address] EKG 12 Lead (05/20/2022 7:04 PM EDT) Component Value Ref Range Test Analysis Performed Pathologis t Method Time At Signature Ventricular rate 101 BPM MUSE SYSTEM QRS Duration 116 ms MUSE SYSTEM Q-T Interval 378 ms MUSE SYSTEM QTC Calculated 490 ms MUSE SYSTEM (Bezet) Calculated R [place] -53 degrees MUSE SYSTEM Calculated T [place] 101 degrees MUSE SYSTEM INTERPRETATION Atrial fibrillation [...] / / Volume Laterality 05/20/2022 7:04 PM 2 1:14 EDT PM EDT Fito Summers MD ECG ORDERABLES Performing Organization Address City/State/ZIP Code Phon e Number MUSE SYSTEM CARDIAC CATHETERIZATION (05/20/2022 6:45 PM EDT) Specimen (Source) Anatomical Location Collection Method / Collectio n Time Received Time / Laterality Volume Narrative CARDIOMAC SYSTEM - 05/20/2022 7:09 PM ED T ?[facility] ? Cardiac Cathete rization/Intervention Report ? Patient Name: Zamora, Koko Sullivan. ? Procedure Date: 05/20/2022 ? A #: [id number] ? Primary Physician: Abundio Servin ? Case #: [id number] ? File Name: [id number] ? Catheterization Order Number: [id number] ? [facility] ? Final Report [place], [place] ? Patient Name: ? Koko Sullivan. Klarissa uson ? ID#: ?[id number] ? : ?1940 ? Procedure Date: ? May 20, 2022 ?Case #: ? Room: ? 1 ? Case Physician: ? Abundio Brady n, M.D. ? Start: ?17:16 ? Admission: ??05/15/2022 ? Referring Physician: ??Sam Hernandez P.A. ? Procedures: ?* Coronary Angiography ?* Left [...] procedure was Urgent. The indication for ?the cardiac cath technician visit is cardiomyo nita. Chest pain symptom [...] ?3.5 guiding catheter and a 3.5 Fr [facility] [place] [address] ??20 Mhz. ??Imaging ?was successful. ??Image [...] 6 Fr. EBU 3.5 ? guide. ??The le lynette was predilated with a 2.00mm EUPHORA 15 MM ? balloon with a maximum inflation pressure of 12 atmospheres. ? A premounted 2. 75 x 30 mm Rudy Pender (AMPARO) was deployed ? with a maximum [...] require ?modification of this regimen. C onsult [facility] Interventional Cardiology for ?questions. ?The 1 year [...] coronary, angioplasty-coronary and stent ?insertion-coronary. ? Abundio Servin, M.D. ? Electronically Signed by: Abundio ruiz M.D. ? Report Finalized: 05/20/2022 ??19:01 ? Abundio Servin MD CARDIAC CATH ORDERABLES Performing Organization Address City/State/ZIP Code Phon e Number CARDIOMAC SYSTEM POCT Glucose (05/20/2022 5:42 PM EDT) P athologist Signature POC Glucose 123 65 - 199 [facility] mg/dL [facility] LABORATORY Comment: Supplemental ranges: <140 mg/dL before meals <180 mg/dL all other times of the day Specimen Anatomical Collection Method Collection Time Receive d Time (Source) Location / / Volume Laterality Blood 05/20/2022 5:42 PM 5:42 EDT PM EDT Fito Summers MD POINT OF CARE TEST ORDERABLE S Performing Organization Address City/State/ZIP Code Phon e [place] [address] (ABNORMAL) BMP w/fasting Glucose (05/20/2022 10:50 AM EDT) P athologist Signature Glucose 152 (H) 65 - 99 [facility] Fasting mg/dL [facility] LABORATORY Comment: ?Fasting* Glucose Interpretive [...] of Diabetes Mellitus, Position Statement from the [place] [employer]. ??Diabete s Care, Volume 33, Supplement 1, Nov 2009 BUN 11 10 - 20 mg/dL [facility] LABORATORY Creatinine 0.63 (L) 0.80 - 1.50 mg/dL [facility] LABORATORY Sodium 137 135 - 145 mmol/L [facility] LABORATORY Potassium 3.6 3.5 - 5.0 mmol/L [facility] LABORATORY Comment: Please note: ??Patients with WBC >100,00 0 may have falsely elevated Potassium levels. ??For accurate Potassium quantif ication in these patients send serum separator tube (gold top) for subsequent determinations. ??Contact the Clinical Chemistry Laboratory if there are any qu estions. Chloride 103 98 - 107 mmol/L [facility] LABORATORY CO2 24 22 - 31 mmol/L [facility] LABORATORY Anion Gap 10 5 - 15 mmol/L [facility] LABORATORY Calcium 8.7 8.5 - 10.5 mg/dL [facility] LABORATORY Estimated GFR 97 >=60 mL/min/1.73 m?? [facility] LABOR[facility]ORY Comment: This patient's estimated GFR was [...] Summers MD CHEMISTRY ORDERABLES Performing Organization Address City/[facility]/ZIP Code Phon e Number [address] Heparin (unfractionated) Level (05/20/2022 5:02 AM EDT) P athologist Signature Heparin UFH 0.57 IU/mL [facility] LABORATORY Comment: Heparin (anti-Xa) levels should be [...] Summers MD HEMATOLOGY ORDERABLES Performing Organization Address City/[facility]/ZIP Code Phon e Number [address] (ABNORMAL) Differential, Automated (05/20/2022 5:02 AM EDT) Patholo gist Method Time Signature Neutrophils % 58.1 % [facility] LABORATORY Neutr Abs (ANC) 4.52 1.70 - [facility] 6.10 [facility] x10(3)/[facility] LABORATORY Lymphocytes % 24.1 % [facility] LABORATORY Lymphocytes Abs 1.9 0.9 - 3.2 [facility] x10(3)/[facility] LABORATORY Monocytes % 13.8 % [facility] LABORATORY Monocyte Abs 1.1 (H) 0.3 - 0.9 [facility] x10(3)/[facility] LABORATORY Eosinophils % 2.6 % [facility] LABORATORY Eosinophils Abs 0.2 0.0 - 0.4 [facility] x10(3)/[facility] LABORATORY Basophils % 0.8 % [facility] LABORATORY Basophils Abs 0.1 0.0 - 0.1 [facility] x10(3)/[facility] LABORATORY Immature Gran % 0.60 % [facility] LABORATORY Comment: Immature granulocytes(IG's)percentage an d absolute count will include metamyelocytes, myelocytes, and promyelo cytes. Blood smears from CBCs yielding IG's will be scanned manually for concor dance. If this scan disagrees with the automated IG or if promyelocytes are not ed, a manual differential will be performed. Rain Gran Abs 0.05 (H) 0.00 - 0.04 x10(3)/[facility] LABORATORY Specimen Anatomical Collection Method Collection Time Receive d Time (Source) Location / / Volume Laterality Blood 05/20/2022 5:02 AM 5:19 EDT AM EDT Resulting Agency Comment Spec In Lab Edward Rodríguez MD HEMATOLOGY ORDERABLES Performing Organization Address City/State/[place] [address] (ABNORMAL) Hemogram (05/20/2022 5:02 AM EDT) Analysis Performed At Patho logist Time Signature WBC 7.8 4.0 - 9.5 [facility] x10(3)/[facility] LABORATORY RBC 3.53 (L) 4.58 - [facility] 5.54 [facility] x10(6)/[facility] LABORATORY Hemoglobin 11.4 (L) 13.7 - [facility] 16.5 g/dL [facility] LABORATORY Hematocrit 34.3 (L) 40.5 - [facility] 48.5 % [facility] LABORATORY MCV 97.2 (H) 82.9 - [facility] 93.1 fL [facility] LABORATORY MCH 32.3 (H) 27.5 - [facility] 32.1 pg [facility] LAB[facility] MCHC 33.2 32.0 - [facility] 35.7 g/dL [facility] LABORATORY Platelets 181 145 - 357 [facility] x10(3)/[facility] LABORATORY RDWSD 46.4 (H) 36.0 - [facility] 45.0 [facility] LABORATORY RDWCV 13.0 11.4 - [facility] 13.8 % [facility] LABORATORY MPV 10.4 7.6 - 12.9 [facility] LABORATORY nRBC % Auto 0.0 % [facility] LABORATORY nRBC Abs Auto 0.000 0.000 - [facility] 0.000 [facility] x10(3)/[facility] LABORATORY Specimen Anatomical Collection Method Collection Time Receive d Time (Source) Location / / Volume Laterality Blood 05/20/2022 5:02 AM 2 5:19 EDT AM EDT Resulting Agency Comment Spec In Lab Edward Rodríguez MD HEMATOLOGY ORDERABLES Performing Organization Address City/State/[place] [address] Heparin (unfractionated) Level (05/19/2022 3:26 AM EDT) P athologist Signature Heparin UFH 0.59 IU/mL [facility] LABORATORY Comment: Heparin (anti-Xa) levels should be [...] Organization Address City/State/ZIP Code Phon e Number [address] (ABNORMAL) Differential, Automated (05/19/2022 3:26 AM EDT) [facility] Method Time Signature Neutrophils % 62.1 % [facility] LABORATORY Neutr Abs (ANC) 4.59 1.70 - [facility] 6.10 [facility] x10(3)/[facility] LABORATORY Lymphocytes % 22.1 % [facility] LABORATORY Lymphocytes Abs 1.6 0.9 - 3.2 [facility] x10(3)/[facility] LABORATORY Monocytes % 13.5 % [facility] LABORATORY Monocyte Abs 1.0 (H) 0.3 - 0.9 [facility] x10(3)/[facility] LABORATORY Eosinophils % 1.3 % [facility] LABORATORY Eosinophils Abs 0.1 0.0 - 0.4 [facility] x10(3)/[facility] LABORATORY Basophils % 0.5 % [facility] LABORATORY Basophils Abs 0.0 0.0 - 0.1 [facility] x10(3)/[facility] LABORATORY Immature Gran % 0.50 % [facility] LABORATORY Comment: Immature granulocytes(IG's)percentage an d absolute count will include metamyelocytes, myelocytes, and promyelo cytes. Blood smears from CBCs yielding IG's will be scanned manually for concor dance. If this scan disagrees with the automated IG or if promyelocytes are not ed, a manual differential will be performed. Rain Gran Abs 0.04 0.00 - 0.04 x10(3)/[facility] LABORATORY Specimen Anatomical Collection Method Collection Time Receive d Time (Source) Location / / Volume Laterality Blood 05/19/2022 3:26 AM 3:59 EDT AM EDT Resulting Agency Comment Spec In Lab Edward Rodríguez MD HEMATOLOGY ORDERABLES Performing Organization Address City/State/ZIP Code Phon e Number [address] (ABNORMAL) Hemogram (05/19/2022 3:26 AM EDT) Analysis Performed At Patho logist Time Signature WBC 7.4 4.0 - 9.5 [facility] x10(3)/[facility] LABORATORY RBC 3.74 (L) 4.58 - [facility] 5.54 [facility] x10(6)/[facility] LABORATORY Hemoglobin 12.1 (L) 13.7 - [facility] 16.5 g/dL [facility] LABORATORY Hematocrit 36.4 (L) 40.5 - [facility] 48.5 % [facility] LABORATORY MCV 97.3 (H) 82.9 - [facility] 93.1 [facility] LABORATORY MCH 32.4 (H) 27.5 - [facility] 32.1 pg [facility] LABORATORY MCHC 33.2 32.0 - [facility] 35.7 g/dL [facility] LABORATORY Platelets 168 145 - 357 [facility] x10(3)/[facility] LABORATORY RDWSD 46.9 (H) 36.0 - [facility] 45.0 [facility] LABORATORY RDWCV 13.0 11.4 - [facility] 13.8 % [facility] LABORATORY MPV 10.5 7.6 - 12.9 [facility] LABORATORY nRBC % Auto 0.0 % [facility] LABORATORY nRBC Abs Auto 0.000 0.000 - [facility] 0.000 [facility] x10(3)/[facility] LABORATORY Specimen Anatomical Collection Method Collection Time Receive d Time (Source) Location / / Volume Laterality Blood 05/19/2022 3:26 AM 3:59 EDT AM EDT Resulting Agency Comment Spec In Lab Edward Rodríguez MD HEMATOLOGY ORDERABLES Performing Organization Address City/State/[place] [address] TSH (05/18/2022 8:00 PM EDT) P athologist Signature TSH 2.27 0.27 - 4.20 [facility] mcIU/mL [facility] LABORATORY Comment: Reference Interval (mcIU/mL): Females: ??First Trimester: 0.23-3.88 ??Second Trimester: 0.22-3.90 ??Third Trimester: 0.44-4.66 Specimen Anatomical Collection Method Collection Time Receive d Time (Source) Location / / Volume Laterality Blood 05/18/2022 8:00 PM 8:06 EDT PM EDT Resulting Agency Comment Spec In Lab Fito Summers MD CHEMISTRY ORDERABLES Performing Organization Address City/State/[place] [address] (ABNORMAL) Differential, Automated (05/18/2022 3:34 AM EDT) [facility] Method Time Signature Neutrophils % 67.2 % [facility] LABORATORY Neutr Abs (ANC) 5.89 1.70 - [facility] 6.10 [facility] x10(3)[facility] LABORATORY Lymphocytes % 17.1 % [facility] LABORATORY Lymphocytes Abs 1.5 0.9 - 3.2 [facility] x10(3)/[facility] LABORATORY Monocytes % 13.6 % [facility] LABORATORY Monocyte Abs 1.2 (H) 0.3 - 0.9 [facility] x10(3)/[facility] LABORATORY Eosinophils % 1.0 % [facility] LABORATORY Eosinophils Abs 0.1 0.0 - 0.4 [facility] x10(3)/[facility] LABORATORY Basophils % 0.6 % [facility] LABORATORY Basophils Abs 0.0 0.0 - 0.1 [facility] x10(3)/[facility] LABORATORY Immature Gran % 0.50 % [facility] LABORATORY Comment: Immature granulocytes(IG's)percentage an d absolute count will include metamyelocytes, myelocytes, and promyelo cytes. Blood smears from CBCs yielding IG's will be scanned manually for concor dance. If this scan disagrees with the automated IG or if promyelocytes are not ed, a manual differential will be performed. Rain Gran Abs 0.04 0.00 - 0.04 x10(3)/[facility] LABORATORY Specimen Anatomical Collection Method Collection Time Receive d Time (Source) Location / / Volume Laterality Blood 05/18/2022 3:34 AM 2 3:48 EDT AM EDT Resulting Agency Comment Spec In Lab Edward Rodríguez MD HEMATOLOGY ORDERABLES Performing Organization Address City/State/[place] [address] (ABNORMAL) Hemogram (05/18/2022 3:34 AM EDT) Analysis Performed At Patho logist Time Signature WBC 8.8 4.0 - 9.5 [facility] x10(3)/[facility] LABORATORY RBC 3.45 (L) 4.58 - [facility] 5.54 [facility] x10(6)/[facility] LABORATORY Hemoglobin 11.2 (L) 13.7 - [facility] 16.5 g/dL [facility] LABORATORY Hematocrit 33.0 (L) 40.5 - [facility] 48.5 % [facility] LABORATORY MCV 95.7 (H) 82.9 - [facility] 93.1 [facility] LABORATORY MCH 32.5 (H) 27.5 - [facility] 32.1 pg [facility] LABORATORY MCHC 33.9 32.0 - [facility] 35.[facility] g/dL [facility] Platelets 130 (L) 145 - 357 [facility] x10(3)/[facility] LABORATORY RDWSD 46.2 (H) 36.0 - [facility] 45.0 [facility] LABORATORY RDWCV 13.2 11.4 - [facility] 13.8 % [facility] LABORATORY MPV 10.8 7.6 - 12.9 [facility] LABORATORY nRBC % Auto 0.0 % [facility] LABORATORY nRBC Abs Auto 0.000 0.000 - [facility] 0.000 [facility] x10(3)/[facility] LABORATORY Specimen Anatomical Collection Method Collection Time Receive d Time (Source) Location / / Volume Laterality Blood 05/18/2022 3:34 AM 2 3:48 EDT AM EDT Resulting Agency Comment Spec In Lab Edward Rodríguez MD HEMATOLOGY ORDERABLES Performing Organization Address City/[facility]/[place] [address] Heparin (unfractionated) Level (05/18/2022 3:34 AM EDT) athologist Signature Heparin UFH 0.59 IU/mL [facility] LABORATORY Comment: Heparin (anti-Xa) levels should be [...] Summers MD HEMATOLOGY ORDERABLES Performing Organization Address City/[facility]/[place] [address] Magnesium (05/17/2022 3:33 AM EDT) athologist Signature Magnesium 0.76 0.69 - 1.07 [facility] mmol/L [facility] LABORATORY Specimen Anatomical Collection Method Collection Time Receive d Time (Source) Location / / Volume Laterality Blood Venous Draw / 05/17/2022 3:33 AM 05/17/20 4:05 Unknown EDT AM EDT Resulting Agency Comment Spec In Lab Dottie Hill APRN CHEMISTRY ORDERABLES Performing Organization Address City/[facility]/[place] [address] (ABNORMAL) Basic Metabolic Panel (non-fasting) (05/17/2022 3:33 AM EDT) P athologist Signature Glucose Lvl 158 65 - 199 [facility] mg/dL [facility] LABORATORY Comment: Diabetes: >=200 mg/dL plus symp toms BUN 12 10 - 20 mg/dL [facility] LABORATORY Creatinine 0.74 (L) 0.80 - 1.50 mg/dL [facility] LABORATORY Sodium 137 135 - 145 mmol/L [facility] LABORATORY Potassium 3.5 3.5 - 5.0 mmol/L [facility] LABORATORY Comment: Please note: ??Patients with WBC >100,00 0 may have falsely elevated Potassium levels. ??For accurate Potassium quantif ication in these patients send serum separator tube (gold top) for subsequent determinations. ??Contact the Clinical Chemistry Laboratory if there are any qu estions. Chloride 102 98 - 107 mmol/L [facility] LABOR[facility]ORY CO2 25 22 - 31 mmol/L [facility] LABORATORY Anion Gap 10 5 - 15 mmol/L [facility]ORAT[facility] Calcium 8.4 (L) 8.5 - 10.5 mg/dL [facility]OR[facility] Estimated GFR 92 >=60 mL/min/1.73 m?? [facility] Comment: This patient's estimated GFR was [...] Organization Address City/State/[place] [address] (ABNORMAL) Differential, Automated (05/17/2022 3:33 AM EDT) [facility] Method Time Signature Neutrophils % 65.5 % [facility] LABOR[facility]ORY Neutr Abs (ANC) 6.84 (H) 1.70 - [facility] 6.10 [facility] x10(3)/[facility] LABORATORY Lymphocytes % 19.7 % [facility] LABOR[facility]ORY Lymphocytes Abs 2.1 0.9 - 3.2 [facility] x10(3)/[facility] LABORATORY Monocytes % 13.1 % [facility] LAB[facility] Monocyte Abs 1.4 (H) 0.3 - 0.9 [facility] x10(3)/[facility] LABORATORY Eosinophils % 0.6 % [facility] Eosinophils Abs 0.1 0.0 - 0.4 [facility] x10(3)/[facility] LABORATORY Basophils % 0.6 % [facility] Basophils Abs 0.1 0.0 - 0.1 [facility] x10(3)/[facility] LABORATORY Immature Gran % 0.50 % [facility] Comment: Immature granulocytes(IG's)percentage an d absolute count will include metamyelocytes, myelocytes, and promyelo cytes. Blood smears from CBCs yielding IG's will be scanned manually for concor dance. If this scan disagrees with the automated IG or if promyelocytes are not ed, a manual differential will be performed. Rain Gran Abs 0.05 (H) 0.00 - 0.04 x10(3)/[facility] LABORATORY Specimen Anatomical Collection Method Collection Time Receive d Time (Source) Location / / Volume Laterality Blood 05/17/2022 3:33 AM 3:53 EDT AM EDT Resulting Agency Comment Spec In Lab Edward Rodríguez MD HEMATOLOGY ORDERABLES Performing Organization Address City/[facility]/[place] [address] (ABNORMAL) Hemogram (05/17/2022 3:33 AM EDT) Analysis Performed At Patho logist Time Signature WBC 10.4 (H) 4.0 - 9.5 [facility] x10(3)/[facility] LABORATORY RBC 3.72 (L) 4.58 - [facility] 5.54 [facility] x10(6)/[facility] LABORATORY Hemoglobin 12.0 (L) 13.7 - [facility] 16.5 g/dL [facility]OR[facility]ORY Hematocrit 36.4 (L) 40.5 - [facility] 48.5 % [facility] MCV 97.8 (H) 82.9 - [facility]1 [facility] LABORATORY MCH 32.3 (H) 27.5 - [facility] 32.1 pg [facility] MCHC 33.0 32.0 - [facility] 35.7 g/dL [facility] Platelets 149 145 - 357 [facility] x10(3)/[facility] LABORATORY RDWSD 48.7 (H) 36.0 - [facility] 45.0 [facility] LABORATORY RDWCV 13.5 11.4 - [facility] 13.8 % [facility] LABORATORY MPV 10.6 7.6 - 12.9 [facility] LABORATORY nRBC % Auto 0.0 % [facility] LABORATORY nRBC Abs Auto 0.000 0.000 - [facility] 0.000 [facility] x10(3)/[facility] LABORATORY Specimen Anatomical Collection Method Collection Time Receive d Time (Source) Location / / Volume Laterality Blood 05/17/2022 3:33 AM 3:53 EDT AM EDT Resulting Agency Comment Spec In Lab Edward Rodríguez MD HEMATOLOGY ORDERABLES Performing Organization Address City/State/[place] [address] (ABNORMAL) Urinalysis Microscopic Exam (05/16/2022 11:15 PM EDT) P athologist Signature RBC UA 8 (H) 0 - 3 /HPF [facility] LABOR[facility]ORY WBC UA 2 0 - 3 /HPF [facility] LAB[facility] Specimen Anatomical Collection Method Collection Time Receive d Time (Source) Location / / Volume Laterality Clean Catch 05/16/2022 11:15 05/16/2022 Urine PM EDT 11:30 PM EDT Resulting Agency Comment Spec In Lab Barbie Ashraf MD URINE ORDERABLES Performing Organization Address City/[facility]/[place] [address] (ABNORMAL) Urinalysis with reflex Culture (05/16/2022 11:15 PM EDT) [facility] Method Time Signature Glucose UA Negative Negative [facility] mg/dL [facility] Protein UA Negative Negative [facility] mg/dL [facility] Bilirubin UA Negative Negative [facility] mg/dL [facility] Comment: Clinical correlation required for positi ve Urine Bilirubin results as false positive may occur with some drugs and d rug related products. If a false positive is suspected a serum total bili quarles should be considered if clinically indicated. Urobilinogen UA Normal Normal mg/dL [facility] pH UA 6.0 5.0 - 8.0 [facility] Blood UA Small (A) Negative mg/dL [facility] LABOR[facility] Ketones UA Trace (A) Negative mg/dL [facility] LABORATORY Nitrite UA Negative Negative [facility] LABORATORY Leukocytes UA Negative Negative [facility] LABORATORY Appearance UA Clear Clear [facility] Spec Victor UA 1.021 1.005 - 1.030 [facility] LABORATORY Color UA Yellow Yellow [facility]OR[facility] Culture Reflexed No [facility] Specimen Anatomical Collection Method Collection Time Receive d Time (Source) Location / / Volume Laterality Clean Catch 05/16/2022 11:15 05/16/2022 Urine PM EDT 11:30 PM EDT Resulting Agency Comment Spec In Lab Fito Summers MD URINE ORDERABLES Performing Organization Address City/[facility]/ZIP Code Phon e Number [place] [id number] HOSPITAL LABORATORY Drive Heparin (unfractionated) Level (05/16/2022 10:59 PM EDT) P athologist Signature Heparin UFH 0.65 IU/mL [facility] LABORATORY Comment: Specimen drawn more than one [...] Organization Address City/State/[place] [address] XR Chest One View [...] have questions please contact the health healthcare account manager that requested your imaging first. ? Narrative [...] have questions please contact the health healthcare account manager that requested your imaging first. Fito Summers MD IMG DX ORDERABLES EKG 12 Lead (05/16/2022 8:57 PM EDT) Component Value Ref Range Test Analysis Performed Pathologis t Method Time At Signature Ventricular rate 117 BPM MUSE SYSTEM QRS Duration 112 ms MUSE SYSTEM Q-T Interval 346 ms MUSE SYSTEM QTC Calculated 482 ms MUSE SYSTEM (Bezet) Calculated R [place] -48 degrees MUSE SYSTEM Calculated T [place] 111 degrees MUSE SYSTEM INTERPRETATION Atrial fibrillation with rapid ventricular response MUSE SYSTEM Left anterior fascicular block Minimal voltage criteria for LVH, may be normal variant ( Aurora product ) Nonspecific ST and T wave [...] EDT) athologist Signature Heparin UFH 0.53 IU/mL [facility] LABORATORY Comment: Heparin (anti-Xa) levels should be [...] Organization Address City/State/[place] [address] ECHOCARDIOGRAM COMPLETE W CONTRAST (05/16/2022 12:49 PM EDT) athologist Signature EF 28 [facility] Specimen (Source) Anatomical Collection Method Collection Time Re ceived Time Location / / Volume Laterality 05/16/2022 11:22 AM EDT Narrative [facility] - 05/16/2022 1:54 PM EDT [facility] ?[address] ? [place] [address] ?Voice: ?Fax: ? Echocardiogram Report Name: KOKO ZAMORA ?Study Date: 05/16/2022 11:22 AM ? Patient Location: [facility] 0[facility] B : 1940 ? Height: 67.5 in ? Account: [id number] Age: 81 yrs ? Weight: 176 lb Gender: Male ?BSA: 1.9 m2 Ordering Physician: FITO SUMMERS Referring Physician: MALI FLORIAN Performed By: Jolene Bernard RDCS Exam Location: [facility]. Interpretation Summary Left ventricle is mildly [...] and LV systolic dysfunction are new. Procedure Complete-[id number]. Image enhancement Optiso n was used for [...] note might be different from the original. [facility] [address] [place] [address] Voice: Fax: Echocardiogram Report Name: KOKO ZAMORA Study Date: 05/2022 11:22 AM Patient Location: [address] [place] [address] : 1940 Height: 67.5 in Account: [id number] Age: 81 yrs Weight: 176 lb Gender: Male BSA: 1.9 m2 Ordering Physician: FITO SUMMERS Referring Physician: MALI FLORIAN Performed By: Jolene Bernard RDCS Exam Location: [facility]. Interpretation Summary Left ventricle is mildly [...] and LV systolic dysfunction are new. Procedure Complete-[id number]. Image enhancement Optiso n was used for [...] (ABNORMAL) Differential, Automated (05/16/2022 3:01 AM EDT) [facility] Method Time Signature Neutrophils % 78.8 % [facility] LABORATORY Neutr Abs (ANC) 9.11 (H) 1.70 - [facility] 6.10 [facility] x10(3)/[facility] LABORATORY Lymphocytes % 9.4 % [facility] LABORATORY Lymphocytes Abs 1.1 0.9 - 3.2 [facility] x10(3)/[facility] LABORATORY Monocytes % 10.9 % [facility] LABOR[facility]ORY Monocyte Abs 1.3 (H) 0.3 - 0.9 [facility] x10(3)/[facility] LABORATORY Eosinophils % 0.0 % [facility] LAB[facility]ORY Eosinophils Abs 0.0 0.0 - 0.4 [facility] x10(3)/[facility] LABORATORY Basophils % 0.3 % [facility] LABOR[facility]ORY Basophils Abs 0.0 0.0 - 0.1 [facility] x10(3)/[facility] LABORATORY Immature Gran % 0.60 % [facility] Comment: Immature granulocytes(IG's)percentage an d absolute count will include metamyelocytes, myelocytes, and promyelo cytes. Blood smears from CBCs yielding IG's will be scanned manually for concor dance. If this scan disagrees with the automated IG or if promyelocytes are not ed, a manual differential will be performed. Rain Gran Abs 0.07 (H) 0.00 - 0.04 x10(3)/[facility] LABORATORY Specimen Anatomical Collection Method Collection Time Receive d Time (Source) Location / / Volume Laterality Blood 05/16/2022 3:01 AM 3:36 EDT AM EDT Resulting Agency Comment Spec In Lab Erin Garza MD HEMATOLOGY ORDERABLES Performing Organization Address City/State/[place] [address] (ABNORMAL) Hemogram (05/16/2022 3:01 AM EDT) Analysis Performed At Patho logist Time Signature WBC 11.6 (H) 4.0 - 9.5 [facility] x10(3)/[facility] LABORATORY RBC 3.62 (L) 4.58 - [facility] 5.54 [facility] x10(6)/[facility] LABORATORY Hemoglobin 12.0 (L) 13.7 - [facility] 16.5 g/dL [facility]OR[facility] Hematocrit 35.3 (L) 40.5 - [facility] 48.5 % [facility] MCV 97.5 (H) 82.9 - [facility] 93.1 fL [facility] MCH 33.1 (H) 27.5 - [facility] 32.1 pg [facility] LABORAT[facility] MCHC 34.0 32.0 - [facility] 35.7 g/dL [facility]OR[facility] Platelets 151 145 - 357 [facility] x10(3)/[facility] LABORATORY RDWSD 47.6 (H) 36.0 - [facility] 45.0 [facility] LABORATORY RDWCV 13.3 11.4 - [facility] 13.8 % [facility] LABORATORY MPV 10.5 7.6 - 12.9 [facility] LABORATORY nRBC % Auto 0.0 % [facility] LABORATORY nRBC Abs Auto 0.000 0.000 - [facility] 0.000 [facility] x10(3)/[facility] LABORATORY Specimen Anatomical Collection Method Collection Time Receive d Time (Source) Location / / Volume Laterality Blood 05/16/2022 3:01 AM 2 3:36 EDT AM EDT Resulting Agency Comment Spec In Lab Erin Garza MD HEMATOLOGY ORDERABLES Performing Organization Address City/State/ZIP Code Phon e Number [address] Phosphorus (05/16/2022 3:01 AM EDT) P athologist Signature Phosphorus 3.7 2.5 - 4.5 [facility] mg/dL [facility] LABORATORY Specimen Anatomical Collection Method Collection Time Receive d Time (Source) Location / / Volume Laterality Blood 05/16/2022 3:01 AM 2 3:36 EDT AM EDT Resulting Agency Comment Spec In Lab Fito Summers MD CHEMISTRY ORDERABLES Performing Organization Address City/State/ZIP Code Phon e Number [address] Magnesium (05/16/2022 3:01 AM EDT) P athologist Signature Magnesium 0.77 0.69 - 1.07 [facility] mmol/L [facility] LABORATORY Specimen Anatomical Collection Method Collection Time Receive d Time (Source) Location / / Volume Laterality Blood 05/16/2022 3:01 AM 2 3:36 EDT AM EDT Resulting Agency Comment Spec In Lab Fito Summers MD CHEMISTRY ORDERABLES Performing Organization Address City/State/[place] [address] (ABNORMAL) Basic Metabolic Panel (non-fasting) (05/16/2022 3:01 AM EDT) P athologist Signature Glucose Lvl 222 (H) 65 - 199 [facility] mg/dL [facility] LABORATORY Comment: Diabetes: >=200 mg/dL plus symp toms BUN 12 10 - 20 mg/dL [facility] Creatinine 0.66 (L) 0.80 - 1.50 mg/dL [facility]OR[facility]ORY Sodium 138 135 - 145 mmol/L [facility] Potassium 4.5 3.5 - 5.0 mmol/L [facility]OR[facility] Comment: Please note: ??Patients with WBC >100,00 0 may have falsely elevated Potassium levels. ??For accurate Potassium quantif ication in these patients send serum separator tube (gold top) for subsequent determinations. ??Contact the Clinical Chemistry Laboratory if there are any qu estions. Chloride 108 (H) 98 - 107 mmol/L [facility] LABORATORY CO2 22 22 - 31 mmol/L [facility] LABORATORY Anion Gap 8 5 - 15 mmol/L [facility] Calcium 8.2 (L) 8.5 - 10.5 mg/dL [facility] LABOR[facility]ORY Estimated GFR 95 >=60 mL/min/1.73 m?? [facility] Comment: This patient's estimated GFR was [...] Organization Address City/State/[place] [address] (ABNORMAL) BLOOD GAS 2 ARTERIAL (05/15/2022 3:33 PM EDT) Analysis Performed At Patho logist Time Signature pH Art 7.33 (L) 7.35 - [facility] 7.45 [facility] LABORATORY pCO2 Art 41 35 - 45 [facility] LABORATORY pO2 Art 131 (H) 85 - 104 [facility] LABORATORY HCO3 Art 21.1 20.0 - [facility] 26.0 [facility] mmol/[facility] LABORATORY BE Art -4.8 (L) -3.0 - 3.0 [facility] mmol/L [facility] LABORATORY Hgb Blood Gas 13.4 (L) 13.7 - [facility] 16.5 g/dL [facility] LABORATORY O2HB Art 96.9 94.0 - [facility] 97.0 % [facility] LABORATORY COHB Art 1.4 % [facility] LAB[facility] Comment: Nonsmokers: 0.5-1.5% COHB Smokers: Variable, but usually less than 10% Toxic: 20-30% COHB Lethal: Greater than 60% COHB METHB Art 0.3 <=1.5 % [facility] LABORATORY Na Whole Blood 139 135 - 145 mmol/L [facility] LAB[facility] K Whole Blood 3.8 3.5 - 5.0 mmol/L [facility] LABOR[facility]ORY Comment: Please note: Patients with WBC >100,000 may have falsely elevated Potassium levels. Contact the Clinical Chemistry L aboratory if there are any questions. ICa Whole Blood 1.32 1.15 - 1.33 mmol/L [facility] LABOR[facility] Comment: Note: ??Total bilirubin higher than 20 m g/dL may lead to falsely low ionized calcium. CL Whole Blood 113 (H) 98 - 107 mmol/L [facility] LABORATORY Gluc Whole Bld 136 65 - 199 mg/dL [facility] LABORATORY Comment: Diabetes: >=200 mg/dL plus symp toms. Lactate WB 2.0 0.5 - 2.2 mmol/L [facility] LABORATORY Specimen Anatomical Collection Method Collection Time Receive d Time (Source) Location / / Volume Laterality Blood 05/15/2022 3:33 PM 3:[address] Jamel Torre MD CHEMISTRY ORDERABLES Performing Organization Address City/State/[place] [address] (ABNORMAL) BLOOD GAS 2 ARTERIAL (05/15/2022 2:06 PM EDT) Analysis Performed At Patho logist Time Signature pH Art 7.39 7.35 - [facility] 7.45 [facility] LABORATORY pCO2 Art 35 35 - 45 [facility] LABORATORY pO2 Art 135 (H) 85 - 104 [facility] LABORATORY HCO3 Art 20.8 20.0 - [facility] 26.0 [facility] mmol/[facility] LABORATORY BE Art -4.2 (L) -3.0 - 3.0 [facility] mmol/L [facility] LABORATORY Hgb Blood Gas 14.5 13.7 - [facility] 16.5 g/dL [facility] LABORATORY O2HB Art 97.2 (H) 94.0 - [facility] 97.0 % [facility] LABORATORY COHB Art 1.2 % [facility] LAB[facility]ORY Comment: Nonsmokers: 0.5-1.5% COHB Smokers: Variable, but usually less than 10% Toxic: 20-30% COHB Lethal: Greater than 60% COHB METHB Art 0.3 <=1.5 % [facility]ORAT[facility] Na Whole Blood 140 135 - 145 mmol/L [facility] K Whole Blood 3.8 3.5 - 5.0 mmol/L [facility] LAB[facility] Comment: Please note: Patients with WBC >100,000 may have falsely elevated Potassium levels. Contact the Clinical Chemistry L aboratory if there are any questions. ICa Whole Blood 1.12 (L) 1.15 - 1.33 mmol/L [facility] LABOR[facility]ORY Comment: Note: ??Total bilirubin higher than 20 m g/dL may lead to falsely low ionized calcium. CL Whole Blood 109 (H) 98 - 107 mmol/L [facility] LABORATORY Gluc Whole Bld 152 65 - 199 mg/dL [facility] LABORATORY Comment: Diabetes: >=200 mg/dL plus symp toms. Lactate WB 1.5 0.5 - 2.2 mmol/L [facility] LABORATORY Specimen Anatomical Collection Method Collection Time Receive d Time (Source) Location / / Volume Laterality Blood 05/15/2022 2:06 PM 2:[address] Jamel Torre MD CHEMISTRY ORDERABLES Performing Organization Address City/[facility] [place] [address] (ABNORMAL) Prothrombin Time (05/15/2022 12:30 PM EDT) P athologist Signature PT 12.9 (H) 9.4 - 12.5 [facility] LABORATORY INR 1.1 [facility] LAB[facility]ORY Comment: An INR <2.0 indicates adequate [...] Morales DO HEMATOLOGY ORDERABLES Performing Organization Address City/[facility]/[place] [address] (ABNORMAL) APTT (05/15/2022 12:30 PM EDT) P athologist Signature PTT 76 (H) 25 - 37 sec [facility] LABOR[facility]ORY Comment: The PTT is NOT appropriate [...] Morales DO HEMATOLOGY ORDERABLES Performing Organization Address City/[facility]/ZIP Code Phon e Number [address] Gold Tube HOLD (05/15/2022 12:20 PM EDT) P athologist Signature Gold Hold Sample in [facility]. [facility] LABORATORY Specimen Anatomical Collection Method Collection Time Receive d Time (Source) Location / / Volume Laterality Blood No Charge / 05/15/2022 12:20 05/15/2022 Unknown PM EDT 12:20 PM EDT Lc TRIPP CHEMISTRY ORDERABLES Performing Organization Address City/[facility]/ZIP Code Phon e Number [address] Type and Screen Validity (05/15/2022 12:00 PM EDT) [facility] 360Guanxi Method Time Signature T&S only valid [facility]ORATORY Comment: This Type and Screen result is only valid at the [facility] Specimen Anatomical Collection Method Collection Time Receive d Time (Source) Location / / Volume Laterality Blood 05/15/2022 12:00 05/15/2022 PM EDT 12:17 PM EDT Resulting Agency Comment Spec In Lab Lc TRIPP BLOOD BANK ORDERABLES Performing Organization Address City/[facility]/ZIP Code Phon e Number [address] ABORH Recheck Status (05/15/2022 12:00 PM EDT) [facility] [employer] Method Time Signature ABORH Recheck Order Placed [facility] LABORATORY ABORH Type Complete [facility] LABORATORY Specimen Anatomical Collection Method Collection Time Receive d Time (Source) Location / / Volume Laterality Blood 05/15/2022 12:00 05/15/2022 PM EDT 12:17 PM EDT Resulting Agency Comment Spec In Lab Lc TRIPP BLOOD BANK ORDERABLES Performing Organization Address City/[facility]/[place] [address] CK (05/15/2022 12:00 PM EDT) P athologist Signature CK, Total 87 0 - 200 [facility] unit/L [facility] LABORATORY Specimen Anatomical Collection Method Collection Time Receive d Time (Source) Location / / Volume Laterality Blood Venous Draw / 05/15/2022 12:00 05/15/2022 Unknown PM EDT 12:19 PM EDT Resulting Agency Comment Spec In Lab Fito Summers MD CHEMISTRY ORDERABLES Performing Organization Address City/[facility]/[place] [address] Antibody screen (05/15/2022 12:00 PM EDT) [facility] Method Time Signature Ab Screen Negative [facility] LABORATORY Expires at 05/18/2022 [facility] [id number] on: [facility] LABORATORY Specimen Anatomical Collection Method Collection Time Receive d Time (Source) Location / / Volume Laterality Blood 05/15/2022 12:00 05/15/2022 PM EDT 12:17 PM EDT Resulting Agency Comment Spec In Lab Lc TRIPP BLOOD BANK ORDERABLES Performing Organization Address City/[facility]/[place] [address] ABO/Rh Typing (05/15/2022 12:00 PM EDT) P athologist Signature ABORh Type O Pos [facility] LABORATORY Specimen Anatomical Collection Method Collection Time Receive d Time (Source) Location / / Volume Laterality Blood 05/15/2022 12:00 05/15/2022 PM EDT 12:17 PM EDT Resulting Agency Comment Spec In Lab Lc TRIPP BLOOD BANK ORDERABLES Performing Organization Address City/[facility]/ZIP Code Phon e Number [address] (ABNORMAL) Differential, Automated (05/15/2022 12:00 PM EDT) [facility] Method Time Signature Neutrophils % 79.4 % [facility] LABORATORY Neutr Abs (ANC) 7.49 (H) 1.70 - [facility] 6.10 [facility] x10(3)/[facility] LABORATORY Lymphocytes % 11.3 % [facility] LABORATORY Lymphocytes Abs 1.1 0.9 - 3.2 [facility] x10(3)/[facility] LABORATORY Monocytes % 7.8 % [facility] LABORATORY Monocyte Abs 0.7 0.3 - 0.9 [facility] x10(3)/[facility] LABORATORY Eosinophils % 0.6 % [facility]OR[facility] Eosinophils Abs 0.1 0.0 - 0.4 [facility] x10(3)/[facility] LABORATORY Basophils % 0.6 % [facility] Basophils Abs 0.1 0.0 - 0.1 [facility] x10(3)/[facility] LABORATORY Immature Gran % 0.30 % [facility] Comment: Immature granulocytes(IG's)percentage an d absolute count will include metamyelocytes, myelocytes, and promyelo cytes. Blood smears from CBCs yielding IG's will be scanned manually for concor dance. If this scan disagrees with the automated IG or if promyelocytes are not ed, a manual differential will be performed. Rain Gran Abs 0.03 0.00 - 0.04 x10(3)/mcL [facility] LABOR[facility]ORY Specimen Anatomical Collection Method Collection Time Receive d Time (Source) Location / / Volume Laterality Blood 05/15/2022 12:00 05/15/2022 PM EDT 12:19 PM EDT Resulting Agency Comment Spec In Lab Lc TRIPP HEMATOLOGY ORDERABLES Performing Organization Address City/[facility]/[place] [address] (ABNORMAL) Hemogram (05/15/2022 12:00 PM EDT) Analysis Performed At Patho logist Time Signature WBC 9.4 4.0 - 9.5 [facility] x10(3)/[facility] LABORATORY RBC 4.48 (L) 4.58 - IFRAH FAYE 5.54 [facility] x10(6)/[facility] LABORATORY Hemoglobin 14.5 13.7 - [facility] 16.5 g/dL [facility] Hematocrit 42.4 40.5 - [facility] 48.5 % [facility] MCV 94.6 (H) 82.9 - [facility] 93.1 [facility] LABORATORY MCH 32.4 (H) 27.5 - [facility] 32.1 pg [facility] MCHC 34.2 32.0 - [facility] 35.7 g/dL [facility] Platelets 209 145 - 357 [facility] x10(3)/[facility] LABORATORY RDWSD 45.9 (H) 36.0 - [facility] 45.0 [facility] LABORATORY RDWCV 13.1 11.4 - [facility] FAYE 13.8 % [facility] MPV 10.5 7.6 - 12.9 [facility] LABORATORY nRBC % Auto 0.0 % [facility] nRBC Abs Auto 0.000 0.000 - [facility] 0.000 [facility] x10(3)/[facility] LABORATORY Specimen Anatomical Collection Method Collection Time Receive d Time (Source) Location / / Volume Laterality Blood 05/15/2022 12:00 05/15/2022 PM EDT 12:19 PM EDT Resulting Agency Comment Spec In Lab Lc TRIPP HEMATOLOGY ORDERABLES Performing Organization Address City/State/[place] [address] (ABNORMAL) Basic Metabolic Panel (non-fasting) (05/15/2022 12:00 PM EDT) P athologist Signature Glucose Lvl 203 (H) 65 - 199 [facility] mg/dL [facility] Comment: Diabetes: >=200 mg/dL plus symp toms BUN 16 10 - 20 mg/dL [facility] Creatinine 0.84 0.80 - 1.50 mg/dL [facility] Sodium 141 135 - 145 mmol/L [facility] Potassium 4.7 3.5 - 5.0 mmol/L [facility] Comment: Please note: ??Patients with WBC >100,00 0 may have falsely elevated Potassium levels. ??For accurate Potassium quantif ication in these patients send serum separator tube (gold top) for subsequent determinations. ??Contact the Clinical Chemistry Laboratory if there are any qu estions. Chloride 107 98 - 107 mmol/L [facility] CO2 23 22 - 31 mmol/L [facility] Anion Gap 11 5 - 15 mmol/L [facility] Calcium 8.5 8.5 - 10.5 mg/dL [facility] Estimated GFR 89 >=60 mL/min/1.73 m?? [facility] Comment: This patient's estimated GFR was [...] Organization Address City/State/[place] [address] documented in this encounter Visit Diagnoses Not on filedocumented in this encounter Admitting Diagnoses Diagnosis Limb ischemia Unspecified circulatory system disorder documented in this encounter Administered Medications Inactive Administered Medications - up to 3 most recent administrations Medication Order MAR Action Action Date Dose Rate Site acetaminophen (Tylenol) tablet 650 Given 05/18/2022 9:01 AM EDT 650 mg mg 650 mg, Oral, EVERY 6 HOURS PRN, Starting on Brandi 05/16/22 at 1606, Until Fri05/21/22 [...] at 1743, Heartburn, Routine aspirin chewable tablet Given 05/20/2022 5:46 PM EDT 324 mg ONCE PRN, Starting on Fri05/20/22 at 1746, Until Fri05/20/22 at 1842, Intra-Operative (Intra-Procedure), Routine aspirin EC tablet 81 mg Given [...] Recovery (Recovery-Hospital Unit), Routine clopidogreL (Plavix) tablet Given 05/20/2022 5:46 PM EDT 600 mg ONCE PRN, Starting on Fri05/20/22 at 1746, Until Fri05/20/22 at 1842, Intra-Operative (Intra-Procedure), Routine fentaNYL (pf) (50 mcg/mL) multi-dose Given 05/20/2022 5:14 PM ED T 25 mcg injection ONCE PRN, Starting on Fri05/20/22 at 1714, Until Fri05/20/22 at 1842, Intra-Operative (Intra-Procedure), Routine folic acid (Folvite) tablet 1,000 mcg Given 05/21/2022 8:15 AM EDT 1,000 mcg 1,000 mcg, Oral, DAILY, First dose on Brandi 05/16/22 at 0900, Until Discontinued, Routine Given 05/20/2022 8:52 AM EDT 1,000 mcg Given 05/19/2022 8:38 AM EDT 1,000 mcg heparin (porcine) (1,000 units/mL) Given 05/20/2022 5:46 PM EDT 2,500 Units injection ONCE PRN, Starting on Fri05/20/22 at 1726, Until Fri05/20/22 at 1842, Cath (Intra-Procedure), Routine Given 05/20/2022 5:26 PM EDT 2,000 Units iohexoL (Omnipaque) (350 mg/mL) solution Given 05/20/2022 6:41 PM EDT 189 mLs ONCE PRN, Starting on Fri05/20/22 at 1841, Until Fri05/20/22 at 1842, Cath (Intra-Procedure), Routine ipratropium-albuteroL (Duoneb) 0.5 mg-3 mg(2.5 Given 0 05/15/2022 5:19 PM EDT 3 mLs mg base)/3 mL nebulizer solution 3 mL 3 mL, Nebulization, 4 TIMES DAILY PRN, Starting on Fri05/15/22 at 1717, Until Fri05/21/22 at 1743, Wheezing, Routine metoprolol (LOPRESSOR) injection 5 mg Given 05/19/2022 [...] on Fri05/21/22 at 1200, Until Discontinued, Routine midazolam (pf) (Versed) (1 mg/mL) multi-dose Given 05/20/2022 5: 14 PM EDT 1 mg injection ONCE PRN, Starting on Fri05/20/22 at 1714, Until Fri05/20/22 at 1842, Cath (Intra-Procedure), Routine multivitamin with minerals (Thera M) tablet [...] Routine polyethylene glycoL (Miralax) packet 17 g Given 05/21/2022 8:15 AM EDT 17 g 17 g, Oral, 2 TIMES DAILY, First dose on Fri05/16/22 at 2100, Until Discontinued, Routine Given 05/20/2022 9:32 PM EDT 17 g Given 05/19/2022 8:38 AM EDT 17 g rivaroxaban (Xarelto) tablet 20 mg Given 05/21/2022 [...] Given 05/18/2022 8:46 PM EDT 5 mLs tamsulosin (Flomax) capsule 0.4 mg Given 05/21/2022 8:17 AM EDT 0.4 mg 0.4 mg, Oral, DAILY, First dose on Fri05/16/22 at 0900, Until Discontinued, DO NOT CRUSH [...] Oral, 2 TIMES DAILY, First dose on 05/18/22 at 2100, Until Discontinued, Routine Given 05/20/2022 8:06 PM EDT 40 mg Given 05/20/2022 8:53 AM EDT 40 mg documented in this encounter Active and Recently Administered Medications Times are shown in EDT. Scheduled Medication Order 05/19/2022 05/20/2022 05/21/2022 aspirin EC tablet 81 mg 0816 (Gi naveen - Provider: Etta Don, RN) 81 mg, Oral, DAILY, First dose on Tue 10/31 at 0900, Until Discontinued, Recovery (Recovery-Hospital Unit), Routine clopidogreL (Plavix) tablet 75 mg 0816 (Given - Provider: Etta Don, RN) 75 mg, Oral, DAILY, First dose on Tue 10/31 at 0900, Until Discontinued, Recovery (Recovery-Hospital Unit), Routine folic acid (Folvite) tablet 1,000 mcg 0838 (Given - Pr ovider: Caroline Zamora, DION) 0852 (Given - Provider: Barbie Joyce RN)1750 (JAN Hold - Provider: Admin Adt - Reason: Transfer to a Procedural area)1955 ([facility] Unhold - Provider: Admin Adt) 0815 (Given - Provider: Etta contreras RN) 1,000 mcg, Oral, DAILY, First dose on Th u 05/16/22 at 0900, Until Discontinued, Routine metoprolol tartrate (Lopressor) tablet 12.5 mg (CANCEL ED) 0838 (Given - Provider: Caroline Zamora, RN)2008 (Given - Provider: Nuris Lester RN) 0853 (Given - Provider: Barbie Joyce RN)1750 ([facility] Hold - Provider: Admin Adt - Reason: Transfer to a Procedural area)1955 ([facility] Unhold - Provider: Admin Adt)2004 (Given - Provider: Tere Blankenship, RN) 0817 (Given - Provider: Etta Don, DION) 12.5 mg, Oral, EVERY 12 HOURS SCHEDULED (2 times per day), First dose on Fri05/18/22 at 2100, Until Discontinued, Routine metoprolol tartrate (Lopressor) tablet 12.5 mg 113 (Given - Provider: Etta Don, RN) 12.5 mg, Oral, EVERY 6 HOURS SCHEDULED, First dose (after last modification) on Fri05/21/22 at 1200, Until Discontinued, Routine multivitamin with minerals (Thera M) tablet 1 tablet 0 838 (Given - Provider: Caroline Zamora RN) 0852 (Given - Provider: Barbie Joyce RN)1750 ([facility] Hold - Provider: Admin Adt - Reason: Transfer to a Procedural area)1955 ([facility] Unhold - Provider: Admin Adt) 0816 (Given [...] Caroline Zamora RN)2099 (Not Given - Provider: Nruis Lester RN - Reason: Patient/family refused) 09 (Not Given - Provider: Barbie joseph RN - Reason: NPO)1750 ([facility] Hold - Provider: Admin Adt - Reason: Transfer to a Procedural area)1955 ([facility] Unhold - Provider: Admin Adt)2131 (Given - Provider: Tere Blankenship, DION) 0815 (Given - Provider: Etta contreras RN) 17 g, Oral, 2 TIMES DAILY, First dose on Fri05/16/22 at 2100, Until Discontinued, Routine rivaroxaban (Xarelto) tablet 20 mg 1408 (Given - Provider: Etta Don RN) 20 mg, Oral, DAILY, First dose on 10/31 at 1415, Until Discontinued, Take with food, Routine rosuvastatin (Crestor) tablet 40 mg 0838 (Given - Prov ider: Caroline Zamora RN) 0853 (Given - Provider: Barbie Joyce RN)1750 ([facility] Hold - Provider: Admin Adt - Reason: Transfer to a Procedural area)1955 ([facility] - Provider: Admin Adt) 0816 (Given - Provider: Etta contreras RN) 40 mg, Oral, EVERY EVENING, First dose o n Fri05/16/22 at 0900, Until Discontinued, Routine sodium chloride 0.9 % (flush) (BD PosiFlush Normal Ubaldo ine 0.9) flush 5 mL 0900 (Not Given - Provider: Caroline Zamora RN - Reason: Contraindicated)2009 (Given - Provider: Nuris Lester RN) 0900 (Not Given - Provider: Barbie Joyce RN - Reason: See comment - Comment: PIV infusing)2100 (Not Given - Provider: Tere Blankenship RN - Reason: Order parameters not met - Comment: infusing) 0819 (Given - Provider: Etta contreras RN) 5 mL, Intravenous, 2 TIMES DAILY, First dose on Fri05/15/22 at 2245, Until Discontinued, Recovery (Recovery-Hospital Unit), Routine tamsulosin (Flomax) capsule 0.4 mg 0838 (Given - Provi bre: Caroline Zamora RN) 0853 (Given - Provider: Barbie Joyce RN)1750 (J[facility] Hold - Provider: Admin Adt - Reason: Transfer to a Procedural area)1955 ([facility] - Provider: Admin Adt) 0817 (Given - Provider: Etta contreras RN) 0.4 mg, Oral, DAILY, First dose on Fri at 0900, Until Discontinued, DO NOT CRUSH OR OPEN, Routine thiamine (Vitamin B1) tablet 100 mg 0838 (Given - Prov ider: Caroline Zamora RN) 0853 (Given - Provider: Barbie Joyce , DION)1750 (JAN Hold - Provider: Admin Adt - Reason: Transfer to a Procedural area)1955 ([facility] Unhold - Provider: Admin Adt) 0816 (Given - Provider: Etta contreras RN) 100 mg, Oral, DAILY, First dose on Brandi at 0900, Until Discontinued, Routine valsartan (Diovan) tablet 40 mg 0838 (Given - Provider : Caroline Zamora, RN)2008 (Given - Provider: Nuris Lester RN) 0853 (Given - Provider: Barbie Joyce RN)1750 (JAN Hold - Provider: Admin Adt - Reason: Transfer to a Procedural area)1955 ([facility] Unhold - Provider: Admin Adt)2005 (Given - Provider: Tere Blankenship RN) 0816 (Given - Provider: Etta contreras RN) 40 mg, Oral, 2 TIMES DAILY, First dose o n 05/18/22 at 2100, Until Discontinued, Routine Continuous Medication Order 05/19/2022 05/20/2022 05/21/2022 heparin (porcine) 50 units/mL in sodium chloride 0.45% 500 mL infusion 193 (New Bag - Provider: Nuris Lester RN) 1600 (New Bag - Provider: Barbie Joyce RN)175 ([facility] Hold - Provider: Admin Adt - Reason: Transfer to a Procedural area)1955 ([facility] Unhold - Provider: Admin Adt) 0219 (Restarted - Provider: Tere Blankenship RN - Comment: 4 hours since tr band off, per MD ashraf)1301 (Rate/Dose Verify - Provider: Etta Don RN)1743 (Due: Stopped) 0-5,000 Units/hr (0-100 mL/hr), Intraven ous, CONTINUOUS, Starting on Brandi 05/16/22 at 0845, Until Fri05/21/22 at 1523, Begin infusion at 1,200 units [...] () 1900 (Continued Bag - Provider: Cassy Schultz, DION)2200 (Stopped - Provider: Tere Blankenship RN) 150 mL/hr, Intravenous, CONTINUOUS, Star ting on Fri05/20/22 at 1915, Until Fri05/20/22 at 2214, Recovery (Recovery-Hospital Unit) PRN Medication Order 05/19/2022 05/20/2022 05/21/2022 acetaminophen (Tylenol) tablet 650 mg 17 51 (JAN Hold - Provider: Admin Adt - Reason: Transfer to a Procedural area)1956 ([facility] - Provider: Admin Adt) 650 [...] 1743, Heartburn, Routine aspirin chewable tablet (CANCELED) 1745 (Given - Provider: Flavia Schuler RN) ONCE PRN, Starting on Fri05/20/22 at 174 6, Until Fri05/20/22 at 1842, Intra- Operative (Intra-Procedure), Routine bisacodyL (Dulcolax) suppository 10 mg 1 751 ([facility] Hold - Provider: Admin Adt - Reason: Transfer to a Procedural area)1955 ([facility] Unhold - Provider: Admin Adt) 10 mg, Rectal, DAILY PRN, Starting on u 05/16/22 at 1604, Until Fri05/21/22 at 1743, Constipation, Routine clopidogreL (Plavix) tablet (CANCELED) 1 746 (Given - Provider: Flavia Schuler RN) ONCE PRN, Starting on Fri05/20/22 at 174 6, Until Fri05/20/22 at 1842, Intra- Operative (Intra-Procedure), Routine fentaNYL (pf) (50 mcg/mL) multi-dose injection (CANCELED) 1713 (Given - Provider: Abundio Servin MD) ONCE PRN, Starting on Fri05/20/22 at 171 4, Until Fri05/20/22 at 1842, Intra- Operative (Intra-Procedure), Routine heparin (porcine) (1,000 units/mL) injection 0-8,000 Units 1750 ([facility] Hold - Provider: Admin Adt - Reason: Transfer to a Procedural area)1955 ([facility] Unhold - Provider: Admin Adt) 0-8,000 Units, Intravenous, BOLUS PER TRE ROSARIO PROTOCOL, Starting on Brandi 05/16/22 at 0758, Until Fri05/21/22 at 1523, Per [...] Flavia Schuler, RN)174 (Given - Provider: Negra Bailey, DION) ONCE PRN, Starting on Fri05/20/22 at 172 6, Until Fri05/20/22 at 1842, Cath (Intra-Procedure), Routine iohexoL (Omnipaque) (350 mg/mL) solution (CANCELED) 184 (Given - Provider: Abundio Servin MD) ONCE PRN, Starting on Fri05/20/22 at 184 1, Until Fri05/20/22 at 1842, Cath (Intra-Procedure), Routine ipratropium-albuteroL (Duoneb) 0.5 mg-3 mg(2.5 mg base)/3 mL nebulizer solution 3 mL 175 (JAN Hold - Provider: A korinin Adt - Reason: Transfer to a Procedural [...] Unit), Routine metoprolol (LOPRESSOR) injection 5 mg 0605 (Given - Pr ovider: Emily Sauceda RN) 1750 (JAN Hold - Provider: Admin Adt - R lexie: Transfer to a Procedural area)1955 ([facility] - Provider: Admin Adt) 5 mg, Intravenous, EVERY 5 MIN PRN, Star ting on Fri05/19/22 at 0506, Until Fri05/21/22 at 1743, Elevated Heart Rate, up to 3 doses for HR >110 midazolam (pf) (Versed) (1 mg/mL) multi-dose injection (CANC ELED) 1713 (Given - Provider: Abundio Servin [...]
Routine documented in this encounter Care Teams [employer] Specialty Start Date End Date Bobby Das MD PCP - General 10/02/[address] [place] [address] [place] [id number] documented as of this encounter
--- OUTSIDE RECORDS SUMMARY | 2022-06-23 00:18 | XMS_ITS | Encounter Summary ---
:1940 [place] [address] Care Team Providers Name Role Phone Bobby Das MD Primary Care Provider Reason for Visit Auth/Cert Specialty Diagnoses / Procedures Referred By Contact Refer red To Contact Diagnoses Limb ischemia LLE thrombus Fito Summers MD [facility] [place] [address] Referral ID Status Reason Start Date Expiration Date Visits Requ ested Visits Authorized [id number] 1 1 Encounter Details Date Type Department Care Team Description 05/15/2022 Anesthesia Event Main Operating Room Cari Briggs MD [facility] [place] [address] [facility] Duong Aguillon CRNA [facility] [place] [place] [address] [place] [address] Anesthesia Record Procedure Summary Procedure Name Responsible Anesthesia Start Anesthesia Stop Anesthesiologist Time Time EMBOLECTOMY OR Cari Ventura MD 05/15/22 1320 1633 THROMBECTOMY, FEMOROPOPLITEAL, AORTOILIAC ARTERY BY LEG INCISION (WRVU 19.48) (Left ) Events Date Time Event Comment 05/15/2022 1249 1320 AN Verify 1320 Start 1320 An Start Data 1332 An Induction 1335 An Intubation 1341 Anesthesia Ready 1518 Vascular Clamp OFF 1616 Extubation/LMA Out 1627 an stop data 1633 Recovery or ICU Handoff Patient care was transferred to the destination unit staff after review of the patient's medica l history, current anesthetic/surgi felicitas status and plan, according to the Provider Handoff Checklist. 1633 Stop Name Total Midazolam 2 mg fentaNYL 150 mcg Propofol 150 mg Rocuronium 50 mg PHENYLephrine 720 mcg ePHEDrine 20 mg Protamine 50 mg Ondansetron 4 mg meTOPROLOL (LOPRESSOR) injection 1 mg cefTRIAXone 2 g PHENYLephrine INF 12,565 mcg Heparin 8,000 Units Calcium Chloride 1,000 mg Sodium Bicarbonate 8.4% 20 mEq Sugammadex 200 mg Lactated Ringers 1,200 mL Lactated Ringers 1,300 mL Agents Name O2 Air N2O Isoflurane (et) Blood No blood administrations on file. Lines, Drains, and Airways Type Details Placement Removal Incision 07/20/19; 1020; back; 07/20/19 1020 by laparoscopic puncture; Fay Martínez, biopsy site RN Incision 07/20/19; 1034; back; 07/20/19 1034 by laparoscopic puncture; Fay Martínez, vertbroplasty site RN Incision 10/25/20; 0912; thoracic 10/25/20 0912 by spine; non-laparascopic Keisha Vargas RN puncture; vertebroplasty site Incision 05/15/22; 1408; Left; 05/15/22 1408 by groin Jaylene Herring RN Incision 05/15/22; 1526; Left, 05/15/22 1526 by lateral, lower; leg Jaylene Herring RN Incision 05/15/22; 1527; Left, 05/15/22 1527 by medial, lower; leg Jaylene Herring RN PIV 05/15/22; 1204; median 05/15/22 1204 by 05/16/22 1117 by cubital vein (antecubital Marcia Dimas, RN Amb Hilton houser RN fossa), left; fquj-tus-raghja catheter system; 18 gauge; OSH; site care per policy/procedure, site symptomatic, removed per policy/procedure, catheter/device intact; 05/16/22; 1117 PIV 05/15/22; 1204; median 05/15/22 1204 by 05/16/22 0738 by cubital vein (antecubital Marcia Dimas RN Gon zalez, Adriana, fossa), right; RN vggj-jkx-xmggmx catheter system; 18 gauge; OSH; 05/16/22; 0738 ETT 05/15/22 1340 by 05/15/22 1648 b y Torres Aguilar, Arron Graham, ANNY Urethral Catheter 05/15/22; 1340; Surgery 05/15/22 1340 by 05/16 1010 by longer than 2 hours; Jaylene Herring RN Lamso n, DION Gaona indwelling double lumen catheter; hydrophilic coated, latex; 14; inserted at this facility; 1; 5; 10; none; drainage bag to dependent drainage; Cooper inserted by Nadine Workman, medical student.; 05/16/22; 1010 Arterial Line 05/15/22; 1341; radial 05/15/22 1341 by 05/15/22 1700 by artery, left; 20 gauge; Torres Aguilar, Dottie Lobo Anatomical Landmarks; G, RN continuous blood pressure monitoring, frequent blood gas measurement; Jeff; Sterile Prep, Sterile Gloves; no longer indicated; 05/15/22; 1700 documented in this encounter Social History Tobacco Use Types Packs/Day Years Used Date Current Some Day Smoker Cigarettes 0.5 50 Smokeless Tobacco: Never Used Alcohol Use Standard Drinks/Week Comments Yes 42 (1 standard drink = 0.6 oz pure alcoh ol) Sex Assigned at Date Recorded Not on file documented as of this encounter OR Notes Anesthesia Postprocedure Evaluation - Cari Ventura MD - 05/15/2022 5:19 PM EDT Department of Anesthesiology Post-procedure Note Patient: Koko Zamora Procedure Summary Date: 05/15/22 Room / Location: [facility] OR [address] [place] [address] MAIN OR Anesthesia Start: 1320 Anesthesia Stop: 1633 Procedure: EMBOLECTOMY OR THROMBECTOMY, FEMOROPOPLITEAL, AORTOILIAC ARTERY BY LEG INCISION (WRVU 19.48) (Left ) Diagnosis: (Acute Limb Ischemia) Surgeons: Fito Summers MD Responsible Provider: Cari Ventura MD Anesthesia Type: general ASA Status: 3 - Emergent All Anesthesia Providers: Anesthesiologist: Cari Ventura MD UNIVERSITY PRESIDENT: Torres Aguilar CRNA Vitals Value Taken Time BP 108/69 05/15/22 1715 Temp 36.3 ??C (97.3 ??F) 05/15/22 1633 Pulse 110 05/15/22 1719 Resp 16 05/15/22 1719 SpO2 89 % 05/15/22 1719 Pain Level Vitals shown include unvalidated device data. Patient Location: PACU/[facility] Level of Consciousness: Awake and Alert Pain Management: Satisfactory Analgesia PONV: None Cardiovascular Status: At Baseline and Hemodynamically Stable Respiratory Status: At Baseline and Supplemental O2 (NC or FM) Postoperative Fluid Status: Intravascular EUvolemia Possible Anesthetic Complications: NONE apparent at time of evaluation Final Primary Anesthesia Type: General (The anesthetic type performed was the same as planned.) Comments: NIBP reading higher than art line pressure. Awake and conversant, no complaints CARI VENTURA MD Anesthesia Preprocedure Evaluation - Cari Ventura MD - 05/15/2022 12:44 PM EDT Pre-Anesthesia Evaluation for: Koko Zamora a 81 y.o. male. Procedure(s): EMBOLECTOMY OR THROMBECTOMY, FEMOROPOPLITEAL, AORTOILIAC [facility] Patient Active Problem List Diagnosis Date Noted ??? History of basal cell carcinoma 05/31/2014 [...] IR Biopsy Spine 07/20/2019 Bobby Marshall MD [facility] INTERVENTIONL RAD ??? IR VERTEBROPLASTY LUMBAR MULTIPLE LEVELS 07/20/2019 IR Vertebroplasty Lumbar Multiple Levels 07/20/2019 Bobby Marshall MD [facility] INTERVENTIONL RAD ??? IR VERTEBROPLASTY THORACIC SINGLE LEVEL 10/25/2020 IR Vertebroplasty Thoracic Single Level 10/25/2020 Matt Chisholm MD [facility] INTERVENTIONL RAD Social History Tobacco Use ??? Smoking status: Current Some [...] Physical Exam: Preprocedure Vitals Current as of 05/15/22 1244 BP: 126/85 Pulse: 125 Resp: 20 SpO2: 94 Temp: 36.4 ??C (97.5 ??F) Height: Weight: BMI: IBW: Last edited 05/15/22 1200 by AR Airway Assessment: Mallampati: II TM distance: >3 FB Neck ROM: full Cardiovascular Assessment: Rhythm: irregular Rate: abnormal Pulmonary Assessment: unlabored breathing Dental Assessment: Comment: Poor overall, blackened teeth throughout Misc Assessment: Last Filed Perioperative Cognitive Screening None Anesthesia Plan: ASA 3 emergent general, with a(n) intravenous induction 81 yo current and care home smoker with significant daily etoh use (6 beers/day by his report) presents in new onset Afib with cold right leg since early this am for emergent thrombectomy, angio, fasciotomy. 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 No Cr, CPK oin our system. Discussed risks/benefits GAETT, arterial line monitoring Informed Consent: Anesthetic plan and risks discussed with patient. Use of blood products discussed with patient who. Plan discussed with UNIVERSITY PRESIDENT. Anesthesia Screening documented in this encounter Plan of Treatment Upcoming Encounters Date Type Specialty Care Team Description 07/02/2022 Office Visit Vascular Surgery Jing Ghosh APRN [facility] VASCULAR SURGERY [place], [place] [address] (Wo rk) 09/02/2022 Clinical Support Dermatology Thai Lynn MD [facility] DR JENNY BILLY-DERMAT [place], [place] [address] (Wo rk) 09/02/2022 Procedure visit Dermatology Jace Lynn MD [facility] DR JENNY [place]ILL[place], [place] [address] (Wo rk) 09/05/2022 Appointment Cardiology Trinity Reid MD [facility] CARDIOLOGY [place], [place] [address] (Wo rk) 09/05/2022 Office Visit Cardiology Trinity Reid MD [facility] CARDIOLOGY [place], [place] [address] (Wo rk) documented as of this encounter Visit Diagnoses Not on filedocumented in this encounter Administered Medications Inactive Administered Medications - up to 3 most recent administrations Medication Order MAR Action Action Date Dose Rate Site calcium chloride 10% (100 mg/mL) Given 05/15/2022 3:20 PM EDT 30 0 mg injection Intravenous, PRN, Starting on Fri05/15/22 at 1504, Until Fri05/15/22 at 1648, Anesthesia Intra-op, Routine Given 05/15/2022 3:18 PM EDT 200 mg Given 05/15/2022 3:15 PM EDT 200 mg cefTRIAXone (Rocephin) injection Given 05/15/2022 1:41 PM EDT 2 g Intravenous, PRN, Starting on Fri05/15/22 at 1341, Until Fri05/15/22 at 1648, Anesthesia Intra-op, Routine ePHEDrine sulfate (5 mg/mL) multi-dose Given 05/15/2022 2:32 PM EDT 20 mg injection Intravenous, PRN, Starting on Fri05/15/22 at 1432, Until Fri05/15/22 at 1648, Anesthesia Intra-op, Routine fentaNYL (pf) (50 mcg/mL) multi-dose Given 05/15/2022 4:11 PM ED T 50 mcg injection Intravenous, PRN, Starting on Fri05/15/22 at 1325, Until Fri05/15/22 at 1648, Anesthesia Intra-op, Routine Given 05/15/2022 1:32 PM EDT 50 mcg Given 05/15/2022 1:25 PM EDT 50 mcg heparin (porcine) (1,000 units/mL) Given 05/15/2022 2:34 PM EDT 8,000 Units injection Intravenous, PRN, Starting on Fri05/15/22 at 1434, Until Fri05/15/22 at 1648, Anesthesia Intra-op, Routine lactated ringers infusion New Bag 05/15/2022 1:20 PM EDT Intravenous, CONTINUOUS PRN, Starting on Fri05/15/22 at 1320, Until Fri05/15/22 at 1648, Anesthesia Intra-op lactated ringers infusion New Bag 05/15/2022 1:41 PM EDT Intravenous, CONTINUOUS PRN, Starting on Fri05/15/22 at 1341, Until Fri05/15/22 at 1648, Anesthesia Intra-op metoprolol (LOPRESSOR) injection Given 05/15/2022 1:52 PM EDT 1 mg Intravenous, PRN, Starting on Fri05/15/22 at 1352, Until Fri05/15/22 at 1648, Anesthesia Intra-op, Routine midazolam (pf) (Versed) (1 mg/mL) multi-dose Given 05/15/2022 1: 28 PM EDT 1 mg injection Intravenous, PRN, Starting on Fri05/15/22 at 1322, Until Fri05/15/22 at 1648, Anesthesia Intra-op, Routine Given 05/15/2022 1:22 PM EDT 1 mg ondansetron (pf) (Zofran) (2 mg/mL) inje ction Given 05/15/2022 4:13 PM EDT 4 mg Intravenous, PRN, Starting on Fri05/15/22 at 1613, Until Fri05/15/22 at 1648, Anesthesia Intra-op, Routine PHENYLephrine Rate/Dose Change 05/15/2022 3:51 50 mcg/min 37.5 mL/hr (Erik-Synephrine) (80 mcg/mL) PM EDT in sodium chloride 0.9% 250 mL infusion Intravenous, CONTINUOUS PRN, Starting on Fri05/15/22 at 1338, Until Fri05/15/22 at 1648, Anesthesia Intra-op, Routine Rate/Dose Change 05/15/2022 2:30 PM EDT 100 mcg/min 75 mL/hr Rate/Dose Change 05/15/2022 2:13 PM EDT 75 mcg/min 56.25 mL/hr PHENYLephrine in NS (PF) (ERIK-SYNEPHRINE) Given 05/15/2022 2:28 PM EDT 240 mcg 0.8 mg/10 mL (80 mcg/mL) multi-dose injection Syrg Intravenous, PRN, Starting on Fri05/15/22 at 1328, Until Fri05/15/22 at 1648, Anesthesia Intra-op, Routine Given 05/15/2022 2:20 PM EDT 160 mcg Given 05/15/2022 1:39 PM EDT 160 mcg propofoL (Diprivan) 10 mg/mL bolus injection Given 04/2022 1:32 PM EDT 150 mg (Anesthesia) Intravenous, PRN, Starting on Fri05/15/22 at 1332, Until Fri05/15/22 at 1648, Anesthesia Intra-op protamine (10 mg/mL) injection Given 05/15/2022 3:20 PM EDT 50 mg Intravenous, PRN, Starting on Fri05/15/22 at 1520, Until Fri05/15/22 at 1648, Anesthesia Intra-op, Routine rocuronium (Zemuron) (10 mg/mL) multi-dose Given 05/15/2022 1:32 PM EDT 50 mg injection Intravenous, PRN, Starting on Fri05/15/22 at 1332, Until Fri05/15/22 at 1648, Anesthesia Intra-op, Routine sodium bicarbonate 8.4 % (1 meq/ml) IV Given 05/15/2022 3:15 PM EDT 10 mEq solution Subcutaneous, PRN, Starting on Fri05/15/22 at 1515, Until Fri05/15/22 at 1648, Anesthesia Intra-op, Routine Given 05/15/2022 3:12 PM EDT 10 mEq sugammadex (Bridion) 100 mg/mL injection Given 05/15/2022 4:13 PM EDT 200 mg Intravenous, PRN, Starting on Fri05/15/22 at 1613, Until Fri05/15/22 at 1648, Anesthesia Intra-op, Routine documented in this encounter Care Teams Rabbit Dresser Relationship Specialty Start Date End Date Bobby Das MD PCP - General 10/02/[address] [place] [address] [place] [phone] documented as of this encounter
--- OUTSIDE RECORDS SUMMARY | 2022-06-23 00:19 | XMS_ITS | Encounter Summary ---
:1940 Author Organization [facility] Address [facility] [place] [address] Care Team Providers Name Role Phone Bobby Das MD Primary Care Provider Reason for Visit - Closed Specialty Diagnoses / Procedures Referred By Contact Refer red To Contact Procedures Bobby Das MD Film Library- Storage Only MR [facility] [place] [address] Referral ID Status Reason Start Date Expiration Date Visits Requ ested Visits Authorized [id number] Closed 02/23/2021 02/23/2022 1 1 Encounter Details Date Type Department Care Team Description 03/16/2020 Ancillary Procedure Radiology Library at Bobby Almaguer MD [address] [phone] (Wo bob) Social History Tobacco Use Types Packs/Day Years Used Date Current Some Day Smoker Cigarettes 1 50 Smokeless Tobacco: Never Used Alcohol Use Standard Drinks/Week Comments Yes 42 (1 standard drink = 0.6 oz pure alcoh ol) Sex Assigned at Date Recorded Not on file documented as of this encounter Plan of Treatment Upcoming Encounters Date Type Specialty Care Team Description 07/02/2022 Office Visit Vascular Surgery Jing Ghosh, MASS SPECTROSCOPIST [facility] DR VASCULAR SURGERY [place], [place] [address] (Wo rk) 09/02/2022 Clinical Support Dermatology Thai Lynn MD [facility] DR JENNY BILLY-DERMAT [place], [place] [address] (Wo rk) 09/02/2022 Procedure visit Dermatology Jace Lynn MD [facility] DR JENNY BILLY[facility]DER[place], [place] [address] (Wo rk) 09/05/2022 Appointment Cardiology Trinity Reid MD [facility] CARDIOLOGY [place], [place] [address] (Wo rk) 09/05/2022 Office Visit Cardiology Trinity Reid MD [facility] CARDIOLOGY [place], [place] [address] (Wo rk) documented as of this encounter Procedures Procedure Name Priority Date/Time Associated Diagnosis Comme nts FILM LIBRARY Routine 03/16/2020 12:00 AM Results for this STORAGE ONLY MR EDT procedure ar e in SPINE the results section. documented in this encounter Results Film Library- Storage Only MR Spine (03/16/2020 12:00 AM EDT) Specimen (Source) Anatomical Location Collection Method / Collectio n Time Received Time / Laterality Volume Narrative INO - 02/23/2021 12:56 PM EDT This exam is auto-finalizing. It's purpo se is for storage only. Bobby Das MD IMG FILM LIBRARY ORDERABLES Performing Organization Address City/State/ZIP Code Phon e Number [place], [place] documented in this encounter Visit Diagnoses Not on filedocumented in this encounter Care Teams Logistician Relationship Specialty Start Date End Date Bobby Das MD PCP - General 10/02/[address] [place] [address] [place] [phone] documented as of this encounter
--- OUTSIDE RECORDS SUMMARY | 2022-06-23 00:19 | XMS_ITS | Encounter Summary ---
:1940 Author Organization [facility] [address] Care Team Providers Name Role Phone Bobby Das MD Primary Care Provider Encounter Details Date Type Department Care Team Description 12/20/2016 Telephone Pain Management at [facility] Kristin Schultz, RN [facility] [place] [address] Social History Tobacco Use Types Packs/Day Years Used Date Current Some Day Smoker 1 50 Smokeless Tobacco: Never Used Sex Assigned at Date Recorded Not on file documented as of this encounter Miscellaneous Notes Telephone Encounter - Kristin Schultz LPN - 12/20/2016 11:02 AM EST Pt called requesting that the Referral to Hematology and Oncology be sent to [facility]. [facility] [place] to [place]. Will Follow up up with the pain clinic after appointment. documented in this encounter Plan of Treatment Upcoming Encounters Date Type Specialty Care Team Description 07/02/2022 Office Visit Vascular Surgery Jing Ghosh, [facility] VASCULAR SURGERY [place], [place] [address] (Wo bob) 09/02/2022 Clinical Support Dermatology Thai Lynn MD [facility] DR JENNY BILLY-[facility], [place] [address] (Wo bob) 09/02/2022 Procedure visit Dermatology Jace Lynn MD [facility] DR [address] [place] [place] [address] (Wo rk) 09/05/2022 Appointment Cardiology Trinity Reid MD [facility] CARDIOLOGY [place], [place] [address] (Wo rk) 09/05/2022 Office Visit Cardiology Trinity Reid MD [facility] CARDIOLOGY [place], [place] [address] (Wo rk) documented as of this encounter Visit Diagnoses Not on filedocumented in this encounter Care Teams Firestop/Containment Worker Relationship Specialty Start Date End Date Bobby Das MD PCP - General 10/02/[address] [place] [address] [place] [phone] documented as of this encounter
--- OUTSIDE RECORDS SUMMARY | 2022-06-23 00:19 | XMS_ITS | Encounter Summary ---
:1940 Author Organization [facility] [place] [address] Care Team Providers Name Role Phone Bobby Das MD Primary Care Provider Reason for Referral Diagnostic Test (Routine) - Closed Specialty Diagnoses / Procedures Referred By Contact Refer red To Contact Radiology Diagnoses 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, sequela Closed compression fracture of L1 lumbar vertebra with delayed healing, subsequent encounter Malignant neoplasm of prostate Zbigniew Thompson PA [facility] Interventionl Rad Procedures IR Vertebroplasty Lumbar Multiple Levels IR Vertebral Augmentation Lumbar Single Level [facility] [place] [address] [place] [address] Fax: Referral ID Status Reason Start Date Expiration Date Visits V isits Requested Authorized [id number] Closed Specialty 07/13/2019 07/12/2020 1 1 Service Requested iagnostic Test (Routine) - Closed Specialty Diagnoses / Procedures Referred By Contact Refer red To Contact Radiology Diagnoses Closed compression fracture of L1 lumbar vertebra with delayed healing, subsequent encounter Malignant neoplasm of prostate Zbigniew Thompson PA [facility] Interventionl Rad [place] [address] [place] [address] Fax: Referral ID Status Reason Start Date Expiration Date Visits V isits Requested Authorized [id number] Closed Specialty 07/13/2019 07/12/2020 1 1 Service Requested Reason for Visit Reason Comments Back Pain Consultation (ANDREINA) - Closed Specialty Diagnoses / Procedures Referred By Contact Refer red To Contact [facility] Sp[facility] Center Diagnoses Collapsed vertebra, not elsewhere classified, lumbar region, subsequent encounter for fracture with routine healing Bobby Das MD [facility] [address] [place] [place] [address] [address] [place] [address] Phone: Fax: Referral ID Status Reason Start Date Expiration Date Visits V isits Requested Authorized [id number] Closed Consult, 06/30/2019 06/29/2020 1 1 [facility] Connection [facility] Encounter Details Date Type Department Care Team Description 07/13/2019 Office Visit [facility] Zbigniew Thompson, Closed compression fracture of L1 lumbar vertebra with delayed healing, subsequent encounter; at [facility] Malignant neoplasm of prostate; [facility] Age -related 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, sequ[place] [address] [place], [place] [phone] Social History Tobacco Use Types Packs/Day Years Used Date Current Some Day Smoker Cigarettes 1 50 Smokeless Tobacco: Never Used Sex Assigned at Date Recorded Not on file documented as of this encounter Last Filed Vital Signs Vital Sign Reading Time Taken Comments Blood Pressure 111/60 07/13/2019 2:14 PM EDT Pulse 95 07/13/2019 2:14 PM EDT Temperature - - Respiratory Rate - - Oxygen Saturation - - Inhaled Oxygen Concentration - - Weight 80.7 kg (178 lb) 07/13/2019 2:14 PM EDT Height 175.3 cm (5' 9) 07/13/2019 2:14 PM EDT Body Mass Index 26.29 07/13/2019 2:14 PM EDT documented in this encounter Progress Notes Zbigniew Thompson, PA - 07/13/2019 2:40 PM EDT Koko Zamora is a 78-year-old gentleman I am seeing today for evaluation regarding chronic upper lumbar back pain that began over a year ago on May 13, 2019. He tells me that he underwent radiation therapy a few months before that but afterwards was lifting a riding lawnmower over a tree stump and subsequently injured his back and was found to have an L1 compression fracture. On the same imagingstudy the patient was also found to have an older L4 compression fracture of otherwise indeterminateage. About needles me the pain is not improved at all and over the years he is dealt with that. The pain remains over the upper lumbar region and does not radiate into his lower extremities, and he does not report motor weakness or sensory loss either. He does have history of prostate cancer for which she has completed radiation therapy. He tells me his PSA has been stable and trending downwards. He completed no other kinds of treatment for his prostate cancer. He denies history of osteoporosis or other fragility fractures. He denies prior spine surgery. Objective: On exam today this is an overweight 78-year-old gentleman. His gait is normal. He stands with level shoulders and pelvis with a prominent hump over his upper lumbar spine. He is quite tender to palpation and percussion over the upper lumbar region. His motor exam shows full strength. Sensory exam is intact light touch. His reflexes are +2 both knees and both ankles. Peripheral pulses are palpable +2.No clonus. Babinski signs are downgoing. Imaging: I went over his CT scan from May 2018 and went over his most recent lumbar spine MRI with STIR sequences performed on June 2019. On May 2018, he had more minor L1 compression fracture with perhaps 30% height loss but on his most recent MRI on June 2019, he has a vertebra plana deformity with over 90% height loss at L1 and evidence of marrow edema consistent with a nonhealing fracture. On both of these imaging studies stable appearance of a chronic L4 compression fracture without marrow edema suggesting an old healed injury. Assessment/plan: Koko Zamora is a 78-year-old gentleman I am seeing today for over 1 year history of back pain in relation to an L1 compression fracture that has been progressive and nonhealing and also known history of prostate cancer. I did advise Koko that I do have my concerns if his compression fracture may be partly related to his prostate cancer. I spoke to him about treatment options here but at this point in time Koko defers any conservativecare nonoperative management. Thus we will plan on proceeding to an L1 vertebroplasty, with an L1 biopsy at the same time. documented in this encounter Plan of Treatment Upcoming Encounters Date Type Specialty Care Team Description 07/02/2022 Office Visit Vascular Surgery Jing Ghosh, [employer] [facility] [place], [place] [address] (Wo rk) 09/02/2022 Clinical Support Dermatology Thai Lynn MD [facility] [address], [place] [address] (Wo rk) 09/02/2022 Procedure visit Dermatology Jace Lynn MD [facility] [address] [place], [place] [address] (Wo rk) 09/05/2022 Appointment Cardiology Trniity Reid MD [facility] CARDIOLOGY [place], [place] [address] (Wo rk) 09/05/2022 Office Visit Cardiology Trinity Reid MD [facility] CARDIOLOG[facility] [place], [place] [address] (Wo rk) documented as of this encounter Results IR Vertebroplasty Lumbar Multiple Levels (07/20/2019 11:09 AM EDT) Anatomical Region Laterality Modality X-Ray Angiography Specimen (Source) Anatomical Location Collection Method / Collectio n Time Received Time / Laterality Volume Narrative 07/20/2019 1:20 PM EDT EXAMINATION: IR VERTEBROPLASTY LUMBAR MULTIPLE LEVELS, IR BIOPSY SPINE CLINICAL HISTORY: Request L1 vertebropla sty and biopsy. Hx of prostate CA. Discussed with Dr. Brink; Exam/Procedu re requested: Request L1 vertebroplasty and biopsy. Hx of prostate CA. Discussed with Dr. Brink TECHNIQUE: Following discussion of the risks and be nefits of the procedure, informed written and verbal consent was obtained. A pre-procedure MRI revealed acute compression fractures of L1. The patient was placed prone on the fluoroscopic table in the prone position. The skin ov erlying the lumbar spine was prepped and draped using maximal sterile technique. Due to the painful nature of the procedure a total of 3.5 mg Versed and 1 75 mcg of Fentanyl was administered by the IR nurses during continuous monitori ng of blood pressure, pulse oximetry, and respiration rate. 1 g of Ancef was a dministered prior to the procedure for prophylaxis. The right pedicle L1 level was localized . 10 cc 1% lidocaine was used for local anesthesia of the entry site at the skin and periosteum overlying the ??L1 level. A small skin incision was made and a 13g a introducer needle (RunRev) was advanced through the right pedicle and t o the ??L1 vertebral body during an intermittent fluoroscopic guidance. A biopsy device was introduced into the cannula and a biopsy was obtained from the right vertebral body and placed in T elfa saturated with normal saline.. The left pedicle L1 level was then local ized. 10 cc 1% lidocaine was used for local anesthesia of the entry site at th e skin and periosteum overlying the ??L1 level. A small skin incision was made an d a 13ga introducer needle (RunRev) was advanced through the left pedicle and to the ??L1 vertebral body during an intermittent fluoroscopic guidance. A bi opsy device was introduced into the cannula and a biopsy was obtained from t he left vertebral body and placed in Telfa saturated with normal saline. The polymethylmethacrylate/contrast mixt ure was prepped and injected through the number needle. No cement extravasation. The cement was allowed to harden. The needle removed and post-procedure im aging obtained. The patient tolerated the procedure well . The patient was monitored in the recover y room post-procedure and there were no immediate complications. FINDINGS 1. Deposition of cement within the ??L1 vertebral bodies. There was a small extravasation of the polymethylmethacryl ate/contrast mixture through the inferior endplate into the L1-2 disc spa ce. No vascular extravasation. 2. Bilateral vertebral body biopsy perfo rmed. 3. Postprocedure patient reported interv al resolution of pain and ambulated without difficulty.. IMPRESSION [1. Successful uncomplicated L1 vertebra l plasty.] 2. Successful uncomplicated bilateral L1 vertebral body biopsy. Thank you for letting us participate in the care of this patient. For questions regarding this report, please contact e number below. ? Electronically signed by: Bobby Sullivan MD, [facility] ([phone]), at 07/20/2019 1:20 PM Procedure Note Bobby Marshall MD - 07/20/2019Formatt ing of this note might be different from the original. EXAMINATION: IR VERTEBROPLASTY LUMBAR MU LTIPLE LEVELS, IR BIOPSY SPINE CLINICAL HISTORY: Request L1 vertebropla sty and biopsy. Hx of prostate CA. Discussed with Dr. Brink; Exam/Procedu re requested: Request L1 vertebroplasty and biopsy. Hx of prostate CA. Discussed with Dr. Brink TECHNIQUE: Following discussion of the risks and be nefits of the procedure, informed written and verbal consent was obtained. A pre-procedure MRI revealed acute compression fractures of L1. The patient was placed prone on the fluoroscopic table in the prone position. The skin ov erlying the lumbar spine was prepped and draped using maximal sterile technique. Due to the painful nature of the procedure a total of 3.5 mg Versed and 1 75 mcg of Fentanyl was administered by the IR nurses during continuous monitori ng of blood pressure, pulse oximetry, and respiration rate. 1 g of Ancef was a dministered prior to the procedure for prophylaxis. The right pedicle L1 level was localized . 10 cc 1% lidocaine was used for local anesthesia of the entry site at the skin and periosteum overlying the L1 level. A small skin incision was made and a 13g a introducer needle (RunRev) was advanced through the right pedicle and t o the L1 vertebral body during an intermittent fluoroscopic guidance. A biopsy device was introduced into the cannula and a biopsy was obtained from the right vertebral body and placed in T elfa saturated with normal saline.. The left pedicle L1 level was then local ized. 10 cc 1% lidocaine was used for local anesthesia of the entry site at th e skin and periosteum overlying the L1 level. A small skin incision was made an d a 13ga introducer needle (RunRev) was advanced through the left pedicle and to the L1 vertebral body during an intermittent fluoroscopic guidance. A bi opsy device was introduced into the cannula and a biopsy was obtained from t he left vertebral body and placed in Telfa saturated with normal saline. The polymethylmethacrylate/contrast mixt ure was prepped and injected through the number needle. No cement extravasation. The cement was allowed to harden. The needle removed and post-procedure im aging obtained. The patient tolerated the procedure well . The patient was monitored in the recover y room post-procedure and there were no immediate complications. FINDINGS 1. Deposition of cement within the L1 ve rtebral bodies. There was a small extravasation of the polymethylmethacryl ate/contrast mixture through the inferior endplate into the L1-2 disc spa ce. No vascular extravasation. 2. Bilateral vertebral body biopsy perfo rmed. 3. Postprocedure patient reported interv al resolution of pain and ambulated without difficulty.. IMPRESSION [1. Successful uncomplicated L1 vertebra l plasty.] 2. Successful uncomplicated bilateral L1 vertebral body biopsy. Thank you for letting us participate in the care of this patient. For questions regarding this report, please contact e number below. Elmer Loya MD IMG IR ORDERABLES IR Biopsy Spine (07/20/2019 11:09 AM EDT) Anatomical Region Laterality Modality Neck X-Ray Angiography Specimen (Source) Anatomical Location Collection Method / Collectio n Time Received Time / Laterality Volume Narrative 07/20/2019 1:20 PM EDT EXAMINATION: IR VERTEBROPLASTY LUMBAR MULTIPLE LEVELS, IR BIOPSY SPINE CLINICAL HISTORY: Request L1 vertebropla sty and biopsy. Hx of prostate CA. Discussed with Dr. Brink; Exam/Procedu re requested: Request L1 vertebroplasty and biopsy. Hx of prostate CA. Discussed with Dr. Brink TECHNIQUE: Following discussion of the risks and be nefits of the procedure, informed written and verbal consent was obtained. A pre-procedure MRI revealed acute compression fractures of L1. The patient was placed prone on the fluoroscopic table in the prone position. The skin ov erlying the lumbar spine was prepped and draped using maximal sterile technique. Due to the painful nature of the procedure a total of 3.5 mg Versed and 1 75 mcg of Fentanyl was administered by the IR nurses during continuous monitori ng of blood pressure, pulse oximetry, and respiration rate. 1 g of Ancef was a dministered prior to the procedure for prophylaxis. The right pedicle L1 level was localized . 10 cc 1% lidocaine was used for local anesthesia of the entry site at the skin and periosteum overlying the ??L1 level. A small skin incision was made and a 13g a introducer needle (RunRev) was advanced through the right pedicle and t o the ??L1 vertebral body during an intermittent fluoroscopic guidance. A biopsy device was introduced into the cannula and a biopsy was obtained from the right vertebral body and placed in T elfa saturated with normal saline.. The left pedicle L1 level was then local ized. 10 cc 1% lidocaine was used for local anesthesia of the entry site at th e skin and periosteum overlying the ??L1 level. A small skin incision was made an d a 13ga introducer needle (RunRev) was advanced through the left pedicle and to the ??L1 vertebral body during an intermittent fluoroscopic guidance. A bi opsy device was introduced into the cannula and a biopsy was obtained from t he left vertebral body and placed in Telfa saturated with normal saline. The polymethylmethacrylate/contrast mixt ure was prepped and injected through the number needle. No cement extravasation. The cement was allowed to harden. The needle removed and post-procedure im aging obtained. The patient tolerated the procedure well . The patient was monitored in the recover y room post-procedure and there were no immediate complications. FINDINGS 1. Deposition of cement within the ??L1 vertebral bodies. There was a small extravasation of the polymethylmethacryl ate/contrast mixture through the inferior endplate into the L1-2 disc spa ce. No vascular extravasation. 2. Bilateral vertebral body biopsy perfo rmed. 3. Postprocedure patient reported interv al resolution of pain and ambulated without difficulty.. IMPRESSION [1. Successful uncomplicated L1 vertebra l plasty.] 2. Successful uncomplicated bilateral L1 vertebral body biopsy. Thank you for letting us participate in the care of this patient. For questions regarding this report, please contact e number below. ? Electronically signed by: Bobby Sullivan MD, [facility] ([phone]), at 07/20/2019 1:20 PM Procedure Note Bobby Marshall MD - 07/20/2019Formatt ing of this note might be different from the original. EXAMINATION: IR VERTEBROPLASTY LUMBAR MU LTIPLE LEVELS, IR BIOPSY SPINE CLINICAL HISTORY: Request L1 vertebropla sty and biopsy. Hx of prostate CA. Discussed with Dr. Brink; Exam/Procedu re requested: Request L1 vertebroplasty and biopsy. Hx of prostate CA. Discussed with Dr. Brink TECHNIQUE: Following discussion of the risks and be nefits of the procedure, informed written and verbal consent was obtained. A pre-procedure MRI revealed acute compression fractures of L1. The patient was placed prone on the fluoroscopic table in the prone position. The skin ov erlying the lumbar spine was prepped and draped using maximal sterile technique. Due to the painful nature of the procedure a total of 3.5 mg Versed and 1 75 mcg of Fentanyl was administered by the IR nurses during continuous monitori ng of blood pressure, pulse oximetry, and respiration rate. 1 g of Ancef was a dministered prior to the procedure for prophylaxis. The right pedicle L1 level was localized . 10 cc 1% lidocaine was used for local anesthesia of the entry site at the skin and periosteum overlying the L1 level. A small skin incision was made and a 13g a introducer needle (RunRev) was advanced through the right pedicle and t o the L1 vertebral body during an intermittent fluoroscopic guidance. A biopsy device was introduced into the cannula and a biopsy was obtained from the right vertebral body and placed in T elfa saturated with normal saline.. The left pedicle L1 level was then local ized. 10 cc 1% lidocaine was used for local anesthesia of the entry site at th e skin and periosteum overlying the L1 level. A small skin incision was made an d a 13ga introducer needle (RunRev) was advanced through the left pedicle and to the L1 vertebral body during an intermittent fluoroscopic guidance. A bi opsy device was introduced into the cannula and a biopsy was obtained from t he left vertebral body and placed in Telfa saturated with normal saline. The polymethylmethacrylate/contrast mixt ure was prepped and injected through the number needle. No cement extravasation. The cement was allowed to harden. The needle removed and post-procedure im aging obtained. The patient tolerated the procedure well . The patient was monitored in the recover y room post-procedure and there were no immediate complications. FINDINGS 1. Deposition of cement within the L1 ve rtebral bodies. There was a small extravasation of the polymethylmethacryl ate/contrast mixture through the inferior endplate into the L1-2 disc spa ce. No vascular extravasation. 2. Bilateral vertebral body biopsy perfo rmed. 3. Postprocedure patient reported interv al resolution of pain and ambulated without difficulty.. IMPRESSION [1. Successful uncomplicated L1 vertebra l plasty.] 2. Successful uncomplicated bilateral L1 vertebral body biopsy. Thank you for letting us participate in the care of this patient. For questions regarding this report, please contact e number below. Elmer Loya MD IMG IR ORDERABLES documented in this encounter Visit Diagnoses Diagnosis Closed compression fracture of L1 lumbar vertebra with delayed healing, subsequent encounter Malignant neoplasm of prostate Age-related osteoporosis with current pa thological fracture of vertebra, sequela Closed compression fracture of L1 lumbar vertebra with delayed healing, subsequent encounter Malignant neoplasm of prostate Age-related osteoporosis with current pa thological fracture of vertebra, sequela documented in this encounter Care Teams Police Matron Relationship Specialty Start Date End Date Bobby Das MD PCP - General 10/02/[address] [place] [address] [place] [id number] documented as of this encounter
--- OUTSIDE RECORDS SUMMARY | 2022-06-23 00:19 | XMS_ITS | Encounter Summary ---
:1940 Author Organization [place] [place] [address] Care Team Providers Name Role Phone Bobby Das MD Primary Care Provider Reason for Referral Diagnostic Test (Routine) - Closed Specialty Diagnoses / Procedures Referred By Contact Refer red To Contact Radiology Diagnoses Compression fracture of T9 vertebra, initial encounter Alphonso Esquivel, DO [facility] Interventionl Rad Procedures IR Vertebroplasty Thoracic Single Level [facility] [place] [address] [place] [address] Referral ID Status Reason Start Date Expiration Date Visits V isits Requested Authorized [id number] Closed Specialty 10/13/2020 04/13/2022 1 1 Service Requested Encounter Details Date Type Department Care Team Description 10/13/2020 Orders Only Radiology at [facility] [place] Alphonso Esquivel, Compression fracture [facility] DO of T9 vertebra, Drive [facility] [place] [address] DIAGNOSTIC RADIOLOGY [place], [place] [address] Social History Tobacco Use Types [...] Office Visit Vascular Surgery Jing Ghosh, HIRAL [facility] VASCULAR SURGERY [place], [place] [address] (Wo rk) 09/02/2022 Clinical Support Dermatology Thai Lynn MD [facility] DR JENNY BILLY-DERMAT [place], [place] [address] (Wo rk) 09/02/2022 Procedure visit Dermatology Jace Lynn MD [facility] DR JENNY BILLY-DERMAT [place], [place] [address] (Wo rk) 09/05/2022 Appointment Cardiology Trinity Reid MD [facility] CARDIOLOGY [place], [place] [address] (Wo rk) 09/05/2022 Office Visit Cardiology Trinity Reid MD [facility] CARDIOLOGY [place], [place] [address] (Wo rk) documented as of this encounter Results IR Vertebroplasty Thoracic Single Level (10/25/2020 9:07 AM EST) Anatomical Region Laterality Modality Spine X-Ray Angiography Specimen (Source) Anatomical Location Collection Method / Collectio n Time Received Time / Laterality Volume Narrative 10/25/2020 11:02 AM EST EXAMINATION: IR VERTEBROPLASTY THORACIC SINGLE LEVEL CLINICAL HISTORY: 80 y.o.?male, with per sistent (5-7 out of 10) mid thoracic back pain that began acutely in r during heavy lifting. He has failed conservative therapy and reports the adrianna n limits his activities of daily living. He has a history of prostate cancer and underwent successful vertebroplasty of L1 in July,. ?MRI on 0 showed an acute compression fracture of T9 and he was referred to our service for vertebroplasty and biopsy of T9. ? OPERATORS: Dr. Valverde, Dr. Soler, Dr. Patricia Carrasco ANESTHESIA: Moderate sedation with intra venous midazolam and fentanyl EBL: 5 ml CONTRAST: None RADIATION EXPOSURE: A-plane 419 mGy, B-p sloan ??69 mGy. TECHNIQUE: Following discussion of the risks and be nefits of the procedure, informed written and verbal consent was obtained. A pre-procedure MRI revealed acute compression fracture of T9. The patient was placed prone on the fluoroscopic table in the prone position. The skin ov erlying the lumbar spine was prepped and draped using maximal sterile technique. Due to the painful nature of the procedure a total of ??4 mg Versed and 2 00 mcg of Fentanyl was administered by the IR nurses during continuous monitori ng of blood pressure, pulse oximetry, and respiration rate. 2 g of Ancef was a dministered prior to the procedure for prophylaxis. The ??T9 level was localized. 10 cc 1% l idocaine was used for local anesthesia of the right pedicle entry site at the skin and periosteum overlying the ??T9 level. A small skin incision was made and a 13g a introducer needle ([employer]) was advanced through the right pedicle and t o the ??T9 vertebral body during an intermittent fluoroscopic guidance. The [employer] biopsy cannula was advanced through the introducer needle and the sy stem was advanced further into the vertebral body. The core biopsy sample w as removed and sent in formalin. 10 cc 1% lidocaine was used for local an esthesia of the left pedicle entry site at the skin and periosteum overlying the ??T9 level. A small skin incision was made and a 13ga introducer needle ([employer]) was advanced through the left pedicle and to the left pedicle of the T 9 vertebral body during an intermittent fluoroscopic guidance. The polymethylmethacrylate/contrast mixt ure was prepped and injected through the right pedicle approach 13-gauge needle. There was cement extravasation focally just anterior to the vertebral body. The polymethylmethacrylate/contrast mixt ure was then injected through the ??left pedicle approach 13-gauge needle. Focal cement extravasation into the T9-T10 disc space. The cement was allowed to harden. The needle removed and post-procedure im aging obtained. The patient tolerated the procedure well . The patient was monitored in the recover y room post-procedure and there were no immediate complications. FINDINGS 1. Deposition of cement within the ??T9 vertebral bodies. Focal extravasation of polymethylmethacrylate/contrast mixture into the T9-T10 disc space. 2. Compression fracture of the T9 verteb ral body with approximately 40% loss of height in the anterior and middle thirds of the vertebral body. 3. Patient reported decreased pain postp rocedure (1 out of 10) and was able to ambulate without limitation. IMPRESSION [1. Uncomplicated T9 vertebroplasty and biopsy.] I, Dr. valverde, performed the procedure. I was present for the interservice administration of fentanyl and Versed [facility] continuous monitoring of blood pressure, oxygenation and pulse rate. I have personally reviewed the image(s) and the resident's interpretation and agree with the findings, Matt Valverde at 10/25/2020 11:02 AM Thank you for letting us participate in the care of this patient. For questions regarding this report, please contact e number below. ? Electronically signed by: Matt Valverde, [facility] [place] [facility] ([phone]), at 10/25/2020 11:02 AM Procedure Note Matt Valverde MD - 10/25/2020Formatti ng of this note might be different from the original. EXAMINATION: IR VERTEBROPLASTY THORACIC SINGLE LEVEL CLINICAL HISTORY: 80 y.o.?male, with per sistent (5-7 out of 10) mid thoracic back pain that began acutely in r during heavy lifting. He has failed conservative therapy and reports the adrianna n limits his activities of daily living. He has a history of prostate cancer and underwent successful vertebroplasty of L1 in July,. ?MRI on 0 showed an acute compression fracture of T9 and he was referred to our service for vertebroplasty and biopsy of T9. ? OPERATORS: Dr. Valverde, Dr. Soler, Dr. Patricia Carrasco ANESTHESIA: Moderate sedation with intra venous midazolam and fentanyl EBL: 5 ml CONTRAST: None RADIATION EXPOSURE: A-plane 419 mGy, B-p sloan 69 mGy. TECHNIQUE: Following discussion of the risks and be nefits of the procedure, informed written and verbal consent was obtained. A pre-procedure MRI revealed acute compression fracture of T9. The patient was placed prone on the fluoroscopic table in the prone position. The skin ov erlying the lumbar spine was prepped and draped using maximal sterile technique. Due to the painful nature of the procedure a total of 4 mg Versed and 200 mcg of Fentanyl was administered by the IR nurses during continuous monitori ng of blood pressure, pulse oximetry, and respiration rate. 2 g of Ancef was a dministered prior to the procedure for prophylaxis. The T9 level was localized. 10 cc 1% lid ocaine was used for local anesthesia of the right pedicle entry site at the skin and periosteum overlying the T9 level. A small skin incision was made and a 13g a introducer needle ([employer]) was advanced through the right pedicle and t o the T9 vertebral body during an intermittent fluoroscopic guidance. The [employer] biopsy cannula was advanced through the introducer needle and the sy stem was advanced further into the vertebral body. The core biopsy sample w as removed and sent in formalin. 10 cc 1% lidocaine was used for local an esthesia of the left pedicle entry site at the skin and periosteum overlying the T9 level. A small skin incision was made and a 13ga introducer needle ([employer]) was advanced through the left pedicle and to the left pedicle of the T 9 vertebral body during an intermittent fluoroscopic guidance. The polymethylmethacrylate/contrast mixt ure was prepped and injected through the right pedicle approach 13-gauge needle. There was cement extravasation focally just anterior to the vertebral body. The polymethylmethacrylate/contrast mixt ure was then injected through the left pedicle approach 13-gauge needle. Focal cement extravasation into the T9-T10 disc space. The cement was allowed to harden. The needle removed and post-procedure im aging obtained. The patient tolerated the procedure well . The patient was monitored in the recover y room post-procedure and there were no immediate complications. FINDINGS 1. Deposition of cement within the T9 ve rtebral bodies. Focal extravasation of polymethylmethacrylate/contrast mixture into the T9-T10 disc space. 2. Compression fracture of the T9 verteb ral body with approximately 40% loss of height in the anterior and middle thirds of the vertebral body. 3. Patient reported decreased pain postp rocedure (1 out of 10) and was able to ambulate without limitation. IMPRESSION [1. Uncomplicated T9 vertebroplasty and biopsy.] I, Dr. valverde, performed the procedure. I was present for the interservice administration of fentanyl and Versed wi th continuous monitoring of blood pressure, oxygenation and pulse rate. I have personally reviewed the image(s) and the resident's interpretation and agree with the findings, Matt Valverde at 10/25/2020 11:02 AM Thank you for letting us participate in the care of this patient. For questions regarding this report, please contact e number below. Electronically signed by: Matt Valverde [facility] ([phone]), at 10/25/2020 11:02 AM Alphonso Esquivel DO IMG IR ORDERABLES Prothrombin Time (10/25/2020 6:35 AM EST) athologist Signature PT 10.8 9.4 - 12.5 [facility] LABORATORY INR 1.0 [facility] LABOR[facility] Comment: An INR <2.0 indicates [...] (Source) Location / / Volume Laterality Blood specimen 10/25/2020 6:35 AM 020 6:52 (specimen) EST AM EST Resulting Agency Comment Spec In Lab Alphonso Esquivel DO HEMATOLOGY ORDERABLES Performing Organization Address City/State/[place] [address] Platelet count (10/25/2020 6:35 AM EST) athologist Signature Platelets 192 145 - 357 [facility] x10(3)/[facility] LABORATORY Plat Immature 2.6 0.0 - 7.4 ILDA HAGEN % % [facility] LABORATORY Comment: Limitation of the Immature Platelet Frac tion (IPF)-May be less reliable when the platelet count is less than 31a039/u L due to statistical imprecision. The IPF value provides an assessment of the Bone Marrow production status. ??It is useful in differentiating Thrombocyto penia caused by platelet destruction/consumption versus decreased production. It also helps to determine the imminent release of platelets and ca n be therefore a helpful parameter in Chemotherapy and Bone marrow transplant patients. ELEVATED IPF value: ?? When the bone marrow is in a state of over production such as when increased destruction and consumption are the unde rlying issue. ?? When the marrow is recovering post ch emotherapy or bone marrow transplant. LOW to NORMAL IPF value: ?? When the bone marrow in not respondin g and is in a decreased state of production. References: [employer] The Clinical Value of the Immature Platelet Fraction (IPF) in Cell Recovery Document Number [id number] 04/2011 [employer] The Role of the Imm ature Platelet Fraction (IPF) in the Differential Diagnosis of Thrombocytopen ia, Document [id number] V05/10/23 P014 Specimen Anatomical Collection Method Collection Time Receive d Time (Source) Location / / Volume Laterality Blood specimen 10/25/2020 6:35 AM 020 6:52 (specimen) EST AM EST Resulting Agency Comment Spec In Lab Alphonso Esquivel DO HEMATOLOGY ORDERABLES Performing Organization Address City/State/[place] [address] documented in this encounter Visit Diagnoses Diagnosis Compression fracture of T9 vertebra, ini tial encounter Compression fracture of T9 vertebra, ini tial encounter documented in this encounter Care Teams Assignment Desk Assistant Relationship Specialty Start Date End Date Bobby Das MD PCP - General 10/02/[address] [place] [address] [place] [address] documented as of this encounter
--- OUTSIDE RECORDS SUMMARY | 2022-06-23 00:19 | XMS_ITS | Encounter Summary ---
:1940 [place] [address] Care Team Providers Name Role Phone Bobby Das MD Primary Care Provider Encounter Details Date Type Department Care Team Description 02/27/2021 Notes Only Radiology Matt Chisholm MD [facility] [place] [address] DIAGNOSTIC RADIOLOGY [phone] [place] [id number] (Wo rk) Social History Tobacco Use Types Packs/Day Years Used Date Current Some Day Smoker Cigarettes 1 50 Smokeless Tobacco: Never Used Alcohol Use Standard Drinks/Week Comments Yes 44 (1 standard drink = 0.6 oz pure alcoh ol) Sex Assigned at Date Recorded Not on file documented as of this encounter Progress Notes Matt Chisholm MD - 02/27/2021 2:25 PM EDT Patient phone call: Patient called to review his 02/20/2021 lumbar spine MRI performed for new low back pain that startedspontaneously several weeks ago. Pain is left paramedian and associated with some left leg weakness.His PCP prescribed 10mg prednisone bid which has helped. I performed T9 v-plasty on patient in October 2020 with excellent pain relief per patient report. Current L-spine MRI does not reveal any new fractures or disc herniations to explain pain. Etiology of pain is unclear. I suggested referral to pain clinic at . Patient will ask his PCP for the referral. I explained to patient that there is no role for vertebroplasty at this time. documented in this encounter Plan of Treatment Upcoming Encounters Date Type Specialty Care Team Description 07/02/2022 Office Visit Vascular Surgery Jing Ghosh APRN [facility] VASCULAR SURGERY [place], [place] [address] (Wo rk) 09/02/2022 Clinical Support Dermatology Thai Lynn MD [facility] DR JENNY BILLY-DERMAT [place], [place] [address] (Wo rk) 09/02/2022 Procedure visit Dermatology Jace Lynn MD [facility] DR JENNY BILLY-DERMAT [place], [place] [address] (Wo rk) 09/05/2022 Appointment Cardiology Trinity Reid MD [facility] CARDIOLOGY [place], [place] [address] (Wo rk) 09/05/2022 Office Visit Cardiology Trinity Reid MD [facility] CARDIOLOGY [place], [place] [address] (Wo rk) documented as of this encounter Visit Diagnoses Not on filedocumented in this encounter Care Teams Flask Fitter Relationship Specialty Start Date End Date Bobby Das MD PCP - General 10/02/[address] [place] [address] [place] [address] documented as of this encounter
--- OUTSIDE RECORDS SUMMARY | 2022-06-23 00:19 | XMS_ITS | Encounter Summary ---
:1940 [place] [address] Care Team Providers Name Role Phone Bobby Das MD Primary Care Provider Encounter Details Date Type Department Care Team Description 05/15/2022 Ancillary Procedure Radiology Library at [facility], Lavell Butt, [facility] [place] [address] VASCULAR SURGERY [phone] [place], [place] [address] (Wo rk) Social History Tobacco [...] 07/02/2022 Office Visit Vascular Surgery Jing Ghosh, CUSTOMER SUPPORT REPRESENTATIVE [facility] VASCULAR SURGERY [place], [place] [address] (Wo rk) 09/02/2022 Clinical Support Dermatology Thai Lynn MD [facility] DR JENNY BILLY-DERMAT [place], [place] [address] (Wo rk) 09/02/2022 Procedure visit Dermatology Jace Lynn MD [facility] DR JENNY BILLY-DERMAT [place], [place] [address] (Wo rk) 09/05/2022 Appointment Cardiology Trinity Reid MD [facility] CARDIOLOGY [place], [place] [address] (Wo rk) 09/05/2022 Office Visit Cardiology Trinity Reid MD [facility] ER CARDIOLOGY [place], [place] [address] (Wo rk) documented as of this encounter Procedures Procedure Name Priority Date/Time Associated Diagnosis Comme nts FILM LIBRARY Routine 05/15/2022 9:31 AM Results f or this STORAGE ONLY DX EDT procedure ar e in CHEST the results section. documented in this encounter Results Film Library- Storage Only DX Chest (05/15/2022 9:31 AM EDT) Specimen (Source) Anatomical Location Collection Method / Collectio n Time Received Time / Laterality Volume Narrative JOSE ALEJANDRO MCKINNON - 05/15/2022 9:31 AM EDT This exam is auto-finalizing. It's purpo se is for storage only. Matt Branham MD IMG FILM LIBRARY ORDERABLES Performing Organization Address City/State/ZIP Code Phon e Number [place], [place] documented in this encounter Visit Diagnoses Not on filedocumented in this encounter Care Teams Bookkeeper Relationship Specialty Start Date End Date Bobby Das MD PCP - General 10/02/[address] [place] [address] [place] [address] documented as of this encounter
--- OUTSIDE RECORDS SUMMARY | 2022-06-23 00:19 | XMS_ITS | Encounter Summary ---
:1940 Author Organization [facility] [place] [address] Care Team Providers Name Role Phone Bobby Das MD Primary Care Provider Reason for Referral Diagnostic Test (Routine) - Closed Specialty Diagnoses / Procedures Referred By Contact Refer red To Contact Radiology Diagnoses 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, sequela Closed compression fracture of L1 lumbar vertebra with delayed healing, subsequent encounter Malignant neoplasm of prostate Zbigniew Thompson PA [facility] Interventionl Rad Procedures IR Vertebroplasty Lumbar Multiple Levels IR Vertebral Augmentation Lumbar Single Level [facility] [place] [address] [place] [address] Fax: Referral ID Status Reason Start Date Expiration Date Visits V isits Requested Authorized [id number] Closed Specialty 07/13/2019 07/12/2020 1 1 Service Requested iagnostic Test (Routine) - Closed Specialty Diagnoses / Procedures Referred By Contact Refer red To Contact Radiology Diagnoses Closed compression fracture of L1 lumbar vertebra with delayed healing, subsequent encounter Malignant neoplasm of prostate Zbigniew Thompson PA [facility] Interventionl Rad Procedures [place] [address] [place] [address] Fax: Referral ID Status Reason Start Date Expiration Date Visits V isits Requested Authorized [id number] Closed Specialty 07/13/2019 07/12/2020 1 1 Service Requested Reason for Visit Diagnostic Test (Routine) - Closed Specialty Diagnoses / Procedures Referred By Contact Refer red To Contact Radiology Diagnoses 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, sequela Closed compression fracture of L1 lumbar vertebra with delayed healing, subsequent encounter Malignant neoplasm of prostate Zbigniew Thompson, PA [facility] Interventionl Rad Procedures IR Vertebroplasty Lumbar Multiple Levels IR Vertebral Augmentation Lumbar Single Level [facility] [place] [facility] [place] [address] [place] [address] Fax: Referral ID Status Reason Start Date Expiration Date Visits V isits Requested Authorized [id number] Closed Specialty 07/13/2019 07/12/2020 1 1 Service Requested Encounter Details Date Type Department Care Team Description 07/20/2019 Hospital Encounter Radiology at [facility] Elmer Loya, Closed compression fracture of L1 lumbar vertebra with delayed healing, subsequent encounter; [facility] Malignant neoplasm of prostate; Drive [facility] Age-related osteoporosis wit h current pathological fracture of vertebra, sequela [place], [place] [facility] [phone] [facility] [phone] [place] [address] Social History Tobacco Use Types Packs/Day Years Used Date Current Some Day Smoker Cigarettes 1 50 Smokeless Tobacco: Never Used Alcohol Use Standard Drinks/Week Comments Yes 42 (1 standard drink = 0.6 oz pure alcoh ol) Sex Assigned at Date Recorded Not on file documented as of this encounter Last Filed Vital Signs Vital Sign Reading Time Taken Comments Blood Pressure 115/58 07/20/2019 11:41 AM EDT Pulse 71 07/20/2019 10:55 AM EDT Temperature 36.7 ??C (98.1 ??F) 07/20/2019 11:15 AM EDT Respiratory Rate 18 07/20/2019 11:41 AM EDT Oxygen Saturation 93% 07/20/2019 11:41 AM EDT Inhaled Oxygen Concentration - - Weight - - Height - - Body Mass Index - - documented in this encounter Discharge Instructions Discharge InstructionsFay Martínez RN - 07/20/2019 10:06 AM EDT [facility] Discharge Instructions for Vertebroplasty Your vertebroplasty was performed at L1 level(s) Activity Level: Rest for the remainder of the day today. Do not lift anything heavier than a gallon of milk for at least three days, then gradually increase your activity as tolerated. Bandage: A small bandage is present at the puncture site on your back and should remain in place for24 hours, then can be removed. You may shower while the dressing is in place. No swimming, tub bathsor whirlpools for one week. When to call your healthcare provider: If you see any redness, swelling or drainage around or from the puncture sites If you develop shaking chills If you develop a fever equal to or greater than 101 degrees fahrenheit If you develop pain at the insertion site(s) If your original back pain worsens, if you develop back pain in a new area or if you develop weakness or numbness in one or both legs When to call the Interventional Radiology Department: Please call with any questions or concerns. Ifit is during regular office hours, please call [phone]. If it is after regular office hours, oron weekends or holidays, please call [phone] and ask to speak to the Scrubbing Machine Operator on callfor Interventional Radiology. XXX You have received medication during your procedure to help lessen anxiety and keep you comfortable. We recommend that you do not drive, operate equipment, sign any important documents, or smoke unattended for 24 hours following your procedure. You may have received medication before and/or during your procedure, which affects judgement and reaction time. Be careful on stairs, as you may be unsteady on your feet. You may eat a regular diet as tolerated IV site -- slight redness, or tenderness is normal, you can use a warm compress. If tenderness and redness increases or foul drainage occurs, please contact your M. D. We will call you in a couple of weeks to check on your progress. documented in this encounter Medications at Time of Discharge Medication Sig Dispensed Refills Start Date End Date sildenafiL (VIAGRA) 100 mg Take 100 mg [...] 1 tablet 0 ORAL) by mouth daily. ibuprofen (ADVIL;MOTRIN) 200 Take 200 mg by 0 05/21/2022 mg Tablet mouth every 6 hours as needed for Pain. documented as of this encounter Progress Notes Fay Martínez RN - 07/20/2019 10:15 AM EDT [facility] N[facility] DATABASE Name: ETTA BAH Date of : 1940 AGE: 78 y.o. Address: [address] [place] [address] [place] [phone] (home) Mobile: No relevant phone numbers on file. Referring Provider: Zbigniew Thompson REASON FOR VISIT: Order Questions Answers Where will study be performed? [facility] Radiology [120] Specify location Lumbar Reason for exam and clinical history: Request L1 vertebroplasty and biopsy. Hx of prostate CA. Discussed with Dr. Brink Exam/Procedure requested: Request L1 vertebroplasty and biopsy. Hx of prostate CA. Discussed with Dr. Brink Does patient require sedation? None Is the patient on anticoagulant / anitplatelet therapy ? No Allergies Allergen Reactions ??? Aspirin Other (See Comments) GI bleed Pertinent PMH: Patient Active Problem List Diagnosis Code ??? GIB (gastrointestinal bleeding) K92.2 ??? MVP (mitral valve prolapse) s/p repair I34.1 ??? Hypertriglyceridemia E78.1 ??? Adhesive capsulitis of L shoulder M75.00 ??? Alcohol use Z78.9 ??? Basal cell carcinoma C44.91 ??? Verruca vulgaris B07.8 ??? AK (actinic keratosis) L57.0 ??? History of basal cell carcinoma Z85.828 Pertinent PSH: No past surgical history on file. Date/Procedure Meds given/comments 07/20/19 L1 Vertbroplasty and spine biopsy Ancef 2g IV, Fentanyl 175mcg IV, Versed 3.5mg IV Laboratory Results: Medications: Prior to Admission medications Medication Sig Start Date End Date Taking? Authorizing Provider sildenafil (VIAGRA) 100 mg Tablet Take 100 mg by mouth as needed for Erectile Dysfunction. PROVIDER,HISTORICAL carboxymethylcellulose (REFRESH PLUS) 0.5 % Dropperette Apply to eye 3 times daily as needed. PROVIDER, HISTORICAL calcium citrate (CALCITRATE) 200 mg (950 mg) Tablet Take 1 tablet by mouth daily. PROVIDER, HISTORICAL tamsulosin (FLOMAX) 0.4 mg Capsule Take 0.4 mg by mouth daily. PROVIDER, HISTORICAL ibuprofen (ADVIL;MOTRIN) 200 mg Tablet Take 200 mg by mouth every 6 hours as needed for Pain. PROVIDER, HISTORICAL CRESTOR 40 mg Tablet Take 40 mg by mouth daily. 09/13/16 PROVIDER, HISTORICAL MULTIVITAMIN (MULTIPLE VITAMIN ORAL) Take 1 tablet by mouth daily. PROVIDER, HISTORICAL Fay Martínez RN - 07/20/2019 9:30 AM EDT To procedure room 4 via stretcher. Onto table Prone. All monitors, O2, safety strap in place. Med's per protocol. Alan Brink - 07/20/2019 9:17 AM EDT INTERVENTIONAL RADIOLOGY FOCUSED H&P: Procedure: L1 vertebroplasty and bone biopsy The patient's history and physical exam have been reviewed and completed. There has been no intervalchange from that of the pre-operative history and physical exam done within the last 30 days. Physical Exam: Cardiovascular: Regular, Normal Pulmonary: Breath sounds clear to auscultation Spine: Pain to palpation over L1 region The planned procedure (and sedation plan if appropriate) , its benefits and risks, and alternatives were discussed with the patient. The patient consented to the procedure. PRE-SEDATION ASSESSMENT: Sedation Plan: moderate (conscious sedation) ASA: 1: Normally healthy patient Mallampati: II: tonsillar pillars are blocked by the tongue Confirm NPO status: Yes History of anesthetic complications: No Current medications reviewed: Yes Allergies reviewed: Yes documented in this encounter Plan of Treatment Upcoming Encounters Date Type Specialty Care Team Description 07/02/2022 Office Visit Vascular Surgery Jing Ghosh, LITHOGRAPHIC PRESS OPERATOR APPRENTICE [facility] VASCULAR SURGERY [place], [place] [address] (Wo rk) 09/02/2022 Clinical Support Dermatology Thai Lynn MD [facility] DR JENNY BILLY-DERMAT [place], [place] [address] (Wo rk) 09/02/2022 Procedure visit Dermatology Jace Lynn MD [facility] DR JENNY [facility]ILLY[facility], [place] [address] (Wo rk) 09/05/2022 Appointment Cardiology Trinity Reid MD [facility] CARDIOLOGY [place], [place] [address] (Wo rk) 09/05/2022 Office Visit Cardiology Trinity Reid MD [facility] CARDIOLOGY [place], [place] [address] (Wo rk) documented as of this encounter Procedures Procedure Name Priority Date/Time Associated Diagnosis Comme nts IR VERTEBROPLASTY Routine 07/20/2019 11:09 Age-related Result s for this LUMBAR MULTIPLE LEVELS AM EDT osteoporosis with procedure are in current pathological the res ults fracture of section. vertebra, sequel a Closed compression fracture of L1 lumbar vertebra with delayed healing, subsequent encou nter Malignant neoplasm of prostate IR BIOPSY SPINE Routine 07/20/2019 11:09 Closed compression Re sults for this AM EDT fracture of L1 procedure are in lumbar vertebra with the res ults delayed healing, section. subsequent encou nter Malignant neoplasm of prostate SURGICAL PATHOLOGY Routine 07/20/2019 10:45 Resul ts for this REPORT AM EDT procedure are i n the results section. SPECIMEN TO PATHOLOGY Routine 07/20/2019 8:41 Res ults for this AM EDT procedure are i n the results section. documented in this encounter Results IR Vertebroplasty Lumbar Multiple [...] made and a 13g a introducer needle (Kindling) was advanced through the right pedicle and [...] made an d a 13ga introducer needle (Kindling) was advanced through the left pedicle and [...] report, please contact e number below. ? Procedure Note Bobby Marshall MD - 07/20/2019Formatt ing of this note might be different from the original. EXAMINATION: IR VERTEBROPLASTY LUMBAR MU LTIPLE LEVELS, IR BIOPSY SPINE CLINICAL HISTORY: Request L1 vertebropla sty and biopsy. Hx of prostate CA. Discussed with Dr. Brink; Exam/Procedu re requested: Request L1 vertebroplasty and biopsy. Hx of prostate CA. Discussed with Dr. Birnk TECHNIQUE: Following discussion of the risks and [...] made and a 13g a introducer needle (Kindling) was advanced through the right pedicle and [...] made an d a 13ga introducer needle (Kindling) was advanced through the left pedicle and [...] made and a 13g a introducer needle (Kindling) was advanced through the right pedicle and [...] made an d a 13ga introducer needle (Kindling) was advanced through the left pedicle and [...] report, please contact e number below. ? Procedure Note Bobby Marshall MD - 07/20/2019Formatt [...] made and a 13g a introducer needle (Kindling) was advanced through the right pedicle and [...] made an d a 13ga introducer needle (Kindling) was advanced through the left pedicle and [...] below. Elmer Loya MD IMG IR ORDERABLES Surgical Pathology Report (07/20/2019 10:45 AM EDT) Component Value Ref Test Analysis Performed At [facility] Range Method Time Signature Surgical [id number] ? Location: [address] [place] [address] Report The signing pathologist has (i) examined the relevant preparation(s) for the [facility] specimen(s) and (ii) rendered or confirmed the diagnosis(es) . [facility] . ?Surgic al Pathology DIAGNOSIS A - Bone, L1; biopsy at vertebroplasty: ?Viable lamellar cancellous bone with scattered i ntertrabecular chronic ?inflammatory cells, and no evidence of metastatic pros mi cancer or ?other neoplasia (see Discussion). Electronically signed by: ??Bebe CARCAMO, Jl Reynolds Verified: ??07/22/2019 ?Pathologist Performed at: ??-[facility] Dept. of Pathology, [place], [place] DISCUSSION Deeper levels into the biopsy tissue block (A1) have been ex amined. CLINICAL INFORMATION Specimen Submitted: A - L1 biopsy Clinical history/diagnosis: History of prostate CA. SPECIMEN PROCESSING A - Labeled/Fixative: L1, fresh. Quantity/Size: Two, averaging 0.7 x 0.1 cm. Tissue Description: Firm, pinkish needle core biopsies. Sections/Processing: Blocks submitted for decalcification in EDTA: A1. Submitted en toto ??in 1 cassette labeled A1. ??sns Specimen (Source) Anatomical Collection Method Collection Time Re ceived Time Location / / Volume Laterality 07/20/2019 10:45 AM EDT Elmer Loya MD PATHOLOGY/CYTOLOGY ORDERABLE S Performing Organization Address City/State/[place] [address] Specimen to Pathology (07/20/2019 8:41 AM EDT) Specimen Anatomical Collection Method Collection Time Receive d Time (Source) Location / / Volume Laterality AP Specimen 07/20/2019 8:41 AM 9 8:41 EDT AM EDT Narrative [facility] - 07/20/2019 8:41 AM EDT Specimen requisition ordered. ??Separate Pathology report to follow Elmer Loya MD PATHOLOGY/CYTOLOGY ORDERABLE S Performing Organization Address City/[facility]/ZIP [place] [address] documented in this encounter Visit Diagnoses Diagnosis Closed compression fracture of L1 lumbar vertebra with delayed healing, subsequent encounter Malignant neoplasm of prostate Age-related osteoporosis with current pa thological fracture of vertebra, sequela documented in this encounter Administered Medications Inactive Administered Medications - up to 3 most recent administrations Medication Order MAR Action Action Date Dose Rate Site ceFAZolin (ANCEF) 2g in New Bag 07/20/2019 10:00 AM EDT 2 g 200 mL/hr dextrose 5% 100 mL 2 g, Intravenous, ONCE, 1 dose, On Fri07/20/19 at 0915, Administer over 30 Minutes, Redose every 3 hours if CrCl is greater than 20. Redose every 8 hours if CrCl is less than 20., Angio/IR (Day of Procedure), Indication for (Active or Suspected): Prophylaxis fentaNYL 50 mcg/mL multi-dose injection Given 07/20/2019 10:50 AM EDT 25 mcg 25-50 mcg, Intravenous, EVERY 5 MIN PRN, Starting on Fri07/20/19 at 0850, Until Fri07/20/19 at 1209, Pain, per unit protocol, - Start dose 50 mcg (reduce dose to 25 mcg if history of sedation sensitivity). - Titration dose 25-50 mcg IV, (based on patient response) every 3 minutes PRN, to maintain procedural pain less than 2 per pain Scale. Maximum dose: 50 mcg/dose, 250 mcg/hour For use in Interventional Radiology (IR) only for procedural sedation with direct provider supervision and verbal order., Angio/IR (Intra-Procedure), Routine Given 07/20/2019 10:45 AM EDT 25 mcg Given 07/20/2019 10:30 AM EDT 25 mcg lidocaine (XYLOCAINE) 10 mg/mL (1 %) Given 07/20/2019 10:17 AM E DT 10 mg injection 10 mg 10 mg, Subcutaneous, ONCE, 1 dose, On 07/20/19 at 0915, For use in Interventional Radiology (IR) only for procedure with direct provider supervision and verbal order., Angio/IR (Intra-Procedure), Routine midazolam (PF) (VERSED) multi-dose injection Given 08/2019 10:45 AM EDT 0.5 mg 0.5-1 mg 0.5-1 mg, Intravenous, EVERY 3 MIN PRN, Starting on e 07/20/19 at 0850, Until Fri07/20/19 at 1209, Sleep, - Start dose; 1 mg (Reduce dose to 0.5 mg if history of sedation sensitivity). - Titration dose: 0.5 mg - 1 mg (based on patient response) every 3 minutes PRN to obtain RASS score of -3. Maximum dose: 1 mg per dose, 5 mg/hour. For use in Interventional Radiology (IR) only for procedural sedation with direct provider supervision and verbal order., Angio/IR (Intra-Procedure), Routine Given 07/20/2019 10:40 AM EDT 0.5 mg Given 07/20/2019 10:35 AM EDT 0.5 mg documented in this encounter Care Teams Core Java Software Engineer Relationship Specialty Start Date End Date Bobby Das MD PCP - General 10/02/[address] [place] [address] [place] [phone] documented as of this encounter
--- OUTSIDE RECORDS SUMMARY | 2022-06-23 00:19 | XMS_ITS | Encounter Summary ---
:1940 [place] [address] Care Team Providers Name Role Phone Bobby Das MD Primary Care Provider Encounter Details Date Type Department Care Team Description 10/13/2020 Notes Only Radiology at [facility] Alphonso Esquivel [facility] [place] [address] DIAGNOSTIC RADIOLOGY [phone] [place] [id number] (Wo rk) Social History Tobacco Use Types Packs/Day Years Used Date Current Some Day Smoker Cigarettes 1 50 Smokeless Tobacco: Never Used Alcohol Use Standard Drinks/Week Comments Yes 42 (1 standard drink = 0.6 oz pure alcoh ol) Sex Assigned at Date Recorded Not on file documented as of this encounter H&P Notes Alphonso Esquivel DO - 10/13/2020 2:53 PM EST Images from the original note were not included. NEURORADIOLOGY PRE-PROCEDURE NOTE Name: Koko Zamora Date of : 1940 Referring Physician: Amy Grimaldo MD, Indication: T9 Compression fracture and back pain Planned Procedure: T9 Vertebroplasty and Biopsy Chief Complaint/HPI: Koko Zamora is a 80 y.o. male, with persistant (8-10) mid thoracic back pain, ongoing for 6 months. He has failed conservative therapy and reports the pain limits his activities of daily living. He has a history of prostate cancer and underwent successful vertebroplasty of L1 in July,. MRI on 09/06/2020 showed an acute compression fracture of T9 and he was referred to our service for vertebroplasty and biopsy of T9. Patient Active Problem List Diagnosis Code ??? GIB (gastrointestinal bleeding) K92.2 ??? MVP (mitral valve prolapse) s/p repair I34.1 ??? Hypertriglyceridemia E78.1 ??? Adhesive capsulitis of L shoulder M75.00 ??? Alcohol use Z72.89 ??? Basal cell carcinoma C44.91 ??? Verruca vulgaris B07.8 ??? AK (actinic keratosis) L57.0 ??? History of basal cell carcinoma Z85.828 Allergies Allergen Reactions ??? Aspirin Other (See Comments) GI bleed Medications: Current Outpatient Medications: ??? sildenafil (VIAGRA) 100 mg Tablet, Take 100 mg by mouth as needed for Erectile Dysfunction., Disp: , Rfl: ??? carboxymethylcellulose (REFRESH PLUS) 0.5 % Dropperette, Apply to eye 3 times daily as needed., Disp: , Rfl: ??? calcium citrate (CALCITRATE) 200 mg (950 mg) Tablet, Take 1 tablet by mouth daily., Disp: , Rfl: ??? tamsulosin (FLOMAX) 0.4 mg Capsule, Take 0.4 mg by mouth daily., Disp: , Rfl: ??? ibuprofen (ADVIL;MOTRIN) 200 mg Tablet, Take 200 mg by mouth every 6 hours as needed for Pain., Disp: , Rfl: ??? CRESTOR 40 mg Tablet, Take 40 mg by mouth daily., Disp: , Rfl: ??? MULTIVITAMIN (MULTIPLE VITAMIN ORAL), Take 1 tablet by mouth daily., Disp: , Rfl: Labs: Lab Results Component Value Date/Time PLATELET 164 07/20/2019 08:18 AM PT 11.3 07/20/2019 08:18 AM INR 1.0 07/20/2019 08:18 AM Imaging: Assessment / Plan: 80 y.o. male with persistant (8-10) mid thoracic back pain, ongoing for 6 months.He has failed conservative therapy and reports the pain limits his activities of daily living. He has a history of prostate cancer and underwent successful vertebroplasty of L1 in July,. MRI on 09/06/2020 showed an acute compression fracture of T9 and he was referred to our service for vertebroplasty and biopsy of T9. After discussion with the patient and reviewing the images we will plan on Vertebroplasty and biopsyof T9. Labs to be performed day of procedure: Platelet count and coagulation profile the day of the procedure. Medication to STOP: None Sedation: moderate (conscious sedation) Additional medications for procedure: Lidocaine 1% Consent: Pending Alphonso Esquivel DO 10/13/2020 2:58 PM documented in this encounter Plan of Treatment Upcoming Encounters Date Type Specialty Care Team Description 07/02/2022 Office Visit Vascular Surgery Jing Ghosh APRN [facility] VASCULAR SURGERY [place], [place] [address] (Wo rk) 09/02/2022 Clinical Support Dermatology Thai Lynn MD [facility] DR JENNY BILLY-DERMAT [place], [place] [address] (Wo rk) 09/02/2022 Procedure visit Dermatology Jace Lynn MD [facility] DR JENNY BILLY-DERMAT [facility] [place], [place] [address] (Wo rk) 09/05/2022 Appointment Cardiology Trinity Reid MD [facility] CARDIOLOGY [place], [place] [address] (Wo rk) 09/05/2022 Office Visit Cardiology Trinity Reid MD [facility] CARDIOLOGY [place], [place] [address] (Wo rk) documented as of this encounter Visit Diagnoses Not on filedocumented in this encounter Care Teams Multiple Sclerosis Nurse Relationship Specialty Start Date End Date Bobby Das MD PCP - General 10/02/[address] [place] [address] [place] [phone] documented as of this encounter
--- OUTSIDE RECORDS SUMMARY | 2022-06-23 00:19 | XMS_ITS | Encounter Summary ---
:1940 [place] [address] Care Team Providers Name Role Phone Bobby Das MD Primary Care Provider Encounter Details Date Type Department Care Team Description 05/15/2022 Ancillary Procedure Radiology Library at [facility], Lavell Butt, [facility] [place] [address] VASCULAR SURGERY [phone] [place], [place] [address] (Wo rk) Social History Tobacco [...] 07/02/2022 Office Visit Vascular Surgery Jing Ghosh, ENGINEERING MANAGER ELECTRONICS [facility] VASCULAR SURGERY [place], [place] [address] (Wo rk) 09/02/2022 Clinical Support Dermatology Thai Lynn MD [facility] DR JENNY BILLY-DERMAT [place], [place] [address] (Wo rk) 09/02/2022 Procedure visit Dermatology Jace Lynn MD [facility] DR JENNY BILLY-DERMAT [place], [place] [address] (Wo rk) 09/05/2022 Appointment Cardiology Trinity Reid MD [facility] ER CARDIOLOGY [place], [place] [address] (Wo rk) 09/05/2022 Office Visit Cardiology Trinity Reid MD [facility] ER CARDIOLOGY [place], [place] [address] (Wo rk) documented as of this encounter Procedures Procedure Name Priority Date/Time Associated Diagnosis Comme nts FILM LIBRARY Routine 05/15/2022 9:32 AM Results f or this STORAGE ONLY CT EDT procedure ar e in ABDOMEN the results section. documented in this encounter Results Film Library- Storage Only CT Abdomen (05/15/2022 9:32 AM EDT) Specimen (Source) Anatomical Location Collection Method / Collectio n Time Received Time / Laterality Volume Narrative INO - 05/15/2022 9:32 AM EDT This exam is auto-finalizing. It's purpo se is for storage only. Matt Branham MD IMG FILM LIBRARY ORDERABLES Performing Organization Address City/State/ZIP Code Phon e Number [place], [place] documented in this encounter Visit Diagnoses Not on filedocumented in this encounter Care Teams Grades 9 12 Tutor Relationship Specialty Start Date End Date Bobby Das MD PCP - General 10/02/[address] [place] [address] [place], [place] [phone] documented as of this encounter
--- OUTSIDE RECORDS SUMMARY | 2022-06-23 00:19 | XMS_ITS | Encounter Summary ---
:1940 Author Organization [place] [address] Care Team Providers Name Role Phone Bobby Das MD Primary Care Provider Encounter Details Date Type Department Care Team Description 05/13/2018 Ancillary Procedure Radiology Library at Bobby Almaguer MD [facility] [place] [address] [place] [phone] (Wo rk) Social History Tobacco Use Types Packs/Day Years Used Date Current Some Day Smoker 1 50 Smokeless Tobacco: Never Used Sex Assigned at Date Recorded Not on file documented as of this encounter Plan of Treatment Upcoming Encounters Date Type Specialty Care Team Description 07/02/2022 Office Visit Vascular Surgery Jing Ghosh APRN [facility] DR VASCULAR SURGERY [place], [place] [address] (Wo rk) 09/02/2022 Clinical Support Dermatology Thai Lynn MD [facility] ER DR JENNY BILLY-DERMAT [place], [place] [address] (Wo rk) 09/02/2022 Procedure visit Dermatology Jace Lynn MD [facility] DR JENNY BILLY-DERMAT [place], [place] [address] (Wo rk) 09/05/2022 Appointment Cardiology Trinity Reid MD [facility] ER CARDIOLOGY [place], [place] [address] (Wo rk) 09/05/2022 Office Visit Cardiology Trinity Reid MD [facility] ER CARDIOLOGY [place], [place] [address] (Wo rk) documented as of this encounter Procedures Procedure Name Priority Date/Time Associated Diagnosis Comme nts FILM LIBRARY Routine 05/13/2018 12:00 AM Results for this STORAGE ONLY CT EDT procedure ar e in SPINE the results section. documented in this encounter Results Film Library- Storage Only CT Spine (05/13/2018 12:00 AM EDT) Specimen (Source) Anatomical Location Collection Method / Collectio n Time Received Time / Laterality Volume Narrative RAD - 06/29/2019 9:44 PM EDT This exam is auto-finalizing. It's purpo se is for storage only. Bobby Das MD IMG FILM LIBRARY ORDERABLES Performing Organization Address City/State/ZIP Code Phon e Number [place], [place] documented in this encounter Visit Diagnoses Not on filedocumented in this encounter Care Teams Radiology Physician Assistant Relationship Specialty Start Date End Date Bobby Das MD PCP - General 10/02/[address] [place] [address] [place] [id number] documented as of this encounter
--- OUTSIDE RECORDS SUMMARY | 2022-06-23 00:19 | XMS_ITS | Encounter Summary ---
:1940 Author Organization [facility] [place] [address] Care Team Providers Name Role Phone Bobby Das MD Primary Care Provider Reason for Referral Diagnostic Test (Routine) - Closed Specialty Diagnoses / Procedures Referred By Contact Refer red To Contact Radiology Diagnoses Compression fracture of T9 vertebra, initial encounter Alphonso Esquivel DO [facility] Interventionl Rad Procedures IR Vertebroplasty Thoracic [facility] [place] [address] [place] [address] Referral ID Status Reason Start Date Expiration Date Visits V isits Requested Authorized [id number] Closed Specialty 10/13/2020 04/13/2022 1 1 Service Requested Reason for Visit Diagnostic Test (Routine) - Closed Specialty Diagnoses / Procedures Referred By Contact Refer red To Contact Radiology Diagnoses Compression fracture of T9 vertebra, initial encounter Alphonso Esquivel DO [facility] Interventionl Rad Procedures IR Vertebroplasty Thoracic [facility] [place] [address] [place] [address] Referral ID Status Reason Start Date Expiration Date Visits V isits Requested Authorized [id number] Closed Specialty 10/13/2020 04/13/2022 1 1 Service Requested Encounter Details Date Type Department Care Team Description 10/25/2020 Hospital Encounter Radiology at [facility] Esquivel, Alphonso R, Compression [facility] DO of T9 vertebra, [facility] initial encounter [place], [place] CENTER [address] DIAGNOSTIC [phone] [place] [address] Social History Tobacco Use Types Packs/Day Years Used Date Current Some Day Smoker Cigarettes 1 50 Smokeless Tobacco: Never Used Alcohol Use Standard Drinks/Week Comments Yes 42 (1 standard drink = 0.6 oz pure alcoh ol) Sex Assigned at Date Recorded Not on file documented as of this encounter Last Filed Vital Signs Vital Sign Reading Time Taken Comments Blood Pressure 87/61 10/25/2020 9:30 AM aasymptomatic , okay EST per pastel to go home Pulse 78 10/25/2020 9:00 AM EST Temperature 36.7 ??C (98 ??F) 10/25/2020 9:10 AM EST Respiratory Rate 12 10/25/2020 9:30 AM EST Oxygen Saturation 98% 10/25/2020 9:30 AM EST Inhaled Oxygen - - Concentration Weight - - Height - - Body Mass Index - - documented in this encounter Discharge Instructions Discharge InstructionsKeisha Vargas RN - 10/25/2020 9:13 AM EST [facility] Discharge Instructions for Vertebroplasty Your vertebroplasty was performed at T9 level(s) Activity Level: Rest for the remainder [...] is during regular office hours, please call [phone]. If it is after regular office hours, oron weekends or holidays, please call [phone] and ask to speak to the [employer] Equipment Servicer on callfor Interventional Radiology. XXX You have [...] of weeks to check on your progress. Revised 08/26/19 documented in this encounter Medications at Time of Discharge Medication Sig Dispensed Refills Start Date End Date ascorbic acid, vitamin C, Take 1,000 mg [...] documented as of this encounter Progress Notes Gladys Corral RN - 10/20/2020 2:57 PM EST ANGIO NURSING DATABASE Name: ETTA BAH Date of : 1940 AGE: 80 y.o. Address: [address] [place] [address] (home) Mobile: No relevant phone numbers on file. Referring Provider: Alphonso Esquivel REASON FOR VISIT: Order Questions Answers Where will study be performed? [facility] Radiology [120] Is the patient on anticoagulant / anitplatelet therapy ? No Reason for exam and clinical history: T9 compression fracture and back pain. Failed conservative therapy Does patient require sedation? IV Please ensure a History and Physical exam is completed within 30 days of the Radiology Procedure OK Allergies Allergen Reactions ??? Aspirin Other (See [...] ??? History of basal cell carcinoma Z85.828 Date/Procedure Meds Given/Comments 07/20/19 L1 Vertbroplasty and spine biopsy Ancef 2g IV, Fentanyl 175mcg IV, Versed 3.5mg IV 10/25/20 Vertebroplasty T-9 (Right and Left side.) Ancef 2g IV, Fentanyl 200 mcg IV, Midazolam 4 mg IV, Pt tolerated the procedure. Anxious and required above meds. ? 0730 to procedure room 4 via stretcher. Onto table prone. All monitors, O2, safety strap in place. Meds per protocol. Laboratory Results: Lab Results Component Value Date INR 1.0 07/20/2019 Lab Results Component Value Date PLATELET 164 07/20/2019 documented in this encounter H&P Notes Yifan Soler MD - 10/25/2020 6:53 AM EST Images from the original note were not included. INTERVENTIONAL RADIOLOGY FOCUSED H&P: Procedure: Planned procedure: T9 biopsy and vertebroplasty The patient's history and physical exam have been reviewed and completed. There has been no intervalchange from that of the pre-operative history and physical exam done within the last 30 days. Patient reports intermittent numbness in his toes bilaterally Physical Exam: Cardiovascular: Regular, Normal Pulmonary: Breath sounds clear to auscultation Abdomen: soft, NT Neuro: Focal tenderness over mid thoracic spine. 5/5 lower extremity strength. Sensation intact andsymmetric lower extremities to light touch. Heel to martell intact bilaterally. The planned procedure (and sedation plan if appropriate) , its benefits and risks, and alternatives were discussed with the patient. The patient consented to the procedure. PRE-SEDATION ASSESSMENT: Sedation Plan: moderate (conscious sedation) ASA: 2: Patient with mild systemic disease Mallampati: II: tonsillar pillars are blocked by the tongue Confirm NPO status: Yes History of anesthetic complications: No Current medications reviewed: Yes Allergies reviewed: Yes Per Dr. Esquivel, NEURORADIOLOGY PRE-PROCEDURE NOTE Name: Etta Bah Date of : 1940 ?? Referring Physician: Amy Grimaldo MD, ?? Indication: T9 Compression fracture and back pain ?? Planned Procedure: T9 Vertebroplasty and Biopsy ?? Chief Complaint/HPI: Etta Bah is a 80 y.o. male, with persistant [...] service for vertebroplasty and biopsy of T9. ?? Patient Active Problem List Diagnosis Code ??? GIB (gastrointestinal bleeding) K92.2 ??? MVP (mitral valve prolapse) s/p repair I34.1 ??? Hypertriglyceridemia E78.1 ??? Adhesive capsulitis of L shoulder M75.00 ??? Alcohol use Z72.89 ??? Basal cell carcinoma C44.91 ??? Verruca vulgaris B07.8 ??? AK (actinic keratosis) L57.0 ??? History of basal cell carcinoma Z85.828 ? Allergies Allergen Reactions ??? Aspirin Other (See Comments) ? GI bleed ? Medications: ?? Current Outpatient Medications: ??? sildenafil (VIAGRA) 100 [...] tablet by mouth daily., Disp: , Rfl: ?? Labs: Lab Results Component Value Date/Time ?? PLATELET 164 07/20/2019 08:18 AM ?? PT 11.3 07/20/2019 08:18 AM ?? INR 1.0 07/20/2019 08:18 AM ? Imaging: ? Assessment / Plan: 80 y.o. male with [...] service for vertebroplasty and biopsy of T9. ?? After discussion with the patient and reviewing the images we will plan on Vertebroplasty and biopsyof T9. ?? Labs to be performed day of procedure: Platelet count and coagulation profile the day of the procedure. Medication to STOP: None Sedation: moderate (conscious sedation) Additional medications for procedure: Lidocaine 1% Consent: Pending ?? Alphonso Esquivel DO 10/13/2020 2:58 PM Plan: Plan Planned procedure: T9 biopsy and vertebroplasty Labs to be performed day of procedure: No labs Sedation: Moderate (Conscious sedation) Prophylactic antibiotic : Ancef Contrast: Omnipaque Additional medications for procedure: Lidocaine Medications to discontinue (and days held): None Planned access site: mid back Position: Prone Cytopathology presence needed: No Consent: Pending 10/25/2020 documented in this encounter Plan of Treatment Upcoming Encounters Date Type Specialty Care Team Description 07/02/2022 Office Visit Vascular Surgery Jing Ghosh, SHORE MAN [facility] VASCULAR SURGERY [place], [place] [address] (Wo rk) 09/02/2022 Clinical Support Dermatology Thai Lynn MD [facility] DR JENNY BILLY-DERMAT [place], [place] [address] (Wo rk) 09/02/2022 Procedure visit Dermatology Jace Lynn MD [facility] DR JENNY BILLY-DERMAT [place], [place] [address] (Wo rk) 09/05/2022 Appointment Cardiology Trinity Reid MD [facility] CARDIOLOGY [place], [place] [address] (Wo rk) 09/05/2022 Office Visit Cardiology Trinity Reid MD [facility] CARDIOLOGY [place], [place] [address] (Wo rk) documented as of this encounter Procedures Procedure Name Priority Date/Time Associated Comments Diagnosis IR VERTEBROPLASTY Routine 10/25/2020 9:07 Compression Results for this THORACIC SINGLE LEVEL AM EST fracture of T9 proc edure are in vertebra, initial the result s encounter section. SURGICAL PATHOLOGY Routine 10/25/2020 8:26 Result s for this REPORT AM EST procedure are i n the results section. SPECIMEN TO PATHOLOGY Routine 10/25/2020 8:26 Res ults for this AM EST procedure are i n the results section. documented in this encounter Results IR Vertebroplasty Thoracic Single [...] made and a 13g a introducer needle ([employer]) was advanced through the right pedicle and t o the ??T9 vertebral body during an intermittent fluoroscopic guidance. The [employer] biopsy cannula was advanced through the introducer [...] was made and a 13ga introducer needle ([employer]) was advanced through the left pedicle and [...] interservice administration of fentanyl and Versed wi continuous monitoring of blood pressure, oxygenation and pulse rate. I have personally reviewed the image(s) and the resident's interpretation and agree with the findings, Matt Valverde at 10/25/2020 11:02 AM Thank you for letting us participate in the care of this patient. For questions regarding this report, please contact e number below. ? Procedure Note Matt Valverde MD - 10/25/2020Formatti [...] made and a 13g a introducer needle ([employer]) was advanced through the right pedicle and t o the T9 vertebral body during an intermittent fluoroscopic guidance. The [employer] biopsy cannula was advanced through the introducer [...] was made and a 13ga introducer needle ([employer]) was advanced through the left pedicle and [...] interservice administration of fentanyl and Versed wi continuous monitoring of blood pressure, oxygenation and pulse rate. I have personally reviewed the image(s) and the resident's interpretation and agree with the findings, Matt Valverde at 10/25/2020 11:02 AM Thank you for letting us participate in the care of this patient. For questions regarding this report, please contact e number below. Electronically signed by: Matt Valverde [facility] ([phone]), at 10/25/2020 11:02 AM Alphonso Esquivel DO IMG IR ORDERABLES Surgical Pathology Report (10/25/2020 8:26 AM EST) Component Value Ref Test Analysis Performed At [facility] Method Time Signature Surgical [id number] ? Location: [facility] Pathology [place] Report The signing pathologist has (i) examined the relevant preparation(s) for the [facility] specimen(s) and (ii) rendered or confirmed the diagnosis(es) . HOSPITAL LABORATORY . 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 lymphoplasmacytic infiltrate, see discussion Electronically signed by: ??Fei CARCAMO, Galo Rosales Verified: ??10/27/2020 ?Dermatopathologist, Bone & Soft Tissue Pathologist Performed at: ??-[facility] Dept. of Pathology, [place], [place] DISCUSSION I see no neoplastic process in this biopsy. ??Multiple deeper sections were examined. SPECIMEN(S) SUBMITTED A - t-9, biopsy (1) CLINICAL INFORMATION T-9 compression fracture and back pain. Failed conservative therapy. Biopsy during vertebroplasty SPECIMEN PROCESSING A - Labeled/Fixative: T-9, fresh. Quantity/Size: ??Single, 0.4 x 0.1 x 0.1 cm. Tissue Description: Core of hard de leon-pink bone. Sections/Processing: Blocks submitted for decalcification in EDTA: A 1. Submitted en toto ??in 1 cassette labeled A1. ??kevin Specimen (Source) Anatomical Collection Method Collection Time Re ceived Time Location / / Volume Laterality 10/25/2020 8:26 AM EST Alphonso Esquivel DO PATHOLOGY/CYTOLOGY ORDERABLE S Performing Organization Address City/State/[place] [address] Specimen to Pathology (10/25/2020 8:26 AM EST) Specimen Anatomical Collection Method Collection Time Receive d Time (Source) Location / / Volume Laterality AP Specimen 10/25/2020 8:26 AM 0 8:26 EST AM EST Narrative [facility] - 10/25/2020 8:26 AM EST Specimen requisition ordered. ??Separate Pathology report to follow Alphonso Elle Sierra DO PATHOLOGY/CYTOLOGY ORDERABLE S Performing Organization Address City/State/ZIP Code Phon e Number [place] [phone] documented in this encounter Visit Diagnoses Diagnosis Compression fracture of T9 vertebra, ini tial encounter documented in this encounter Administered Medications Inactive Administered Medications - up to 3 most recent administrations Medication Order MAR Action Action Date Dose Rate Site ceFAZolin (Ancef) 2 g in Given 10/25/2020 7:35 AM EST 2 g 200 mL/hr dextrose 5% 100 mL infusion 2 g, Intravenous, ONCE, 1 dose, On Fri10/25/20 at 0730, Administer over 30 Minutes, Redose every 3 hours if CrCl is greater than 20. Redose every 8 hours if CrCl is less than 20., Angio/IR (Day of Procedure), Indication for (Active or Suspected): Prophylaxis fentaNYL (pf) (50 mcg/mL) multi-dose Given 10/25/2020 8:51 AM ES T 50 mcg injection 25-50 mcg 25-50 mcg, Intravenous, EVERY 3 MIN PRN, Starting on Fri10/25/20 at 0702, Until Fri10/25/20 at 0947, Pain, per unit protocol, - Start dose [...] and verbal order., Angio/IR (Intra-Procedure), Routine Given 10/25/2020 8:34 AM EST 50 mcg Given 10/25/2020 8:10 AM EST 50 mcg lidocaine (Xylocaine) 1% (10 mg/mL) injection Given 8:09 AM EST 10 mg 10 mg 10 mg, Subcutaneous, ONCE, 1 dose, On Fri10/25/20 at 0730, For use in Interventional Radiology (IR) only for procedure with direct provider supervision and verbal order., Angio/IR (Intra-Procedure), Routine midazolam (pf) (Versed) (1 mg/mL) multi-dose Given 10/25/2020 8: 51 AM EST 1 mg injection 0.5-1 mg 0.5-1 mg, Intravenous, EVERY 3 MIN PRN, Starting on Fri10/25/20 at 0702, Until Fri10/25/20 at 0947, Sleep, - Start dose; 1 mg (Reduce [...] and verbal order., Angio/IR (Intra-Procedure), Routine Given 10/25/2020 8:33 AM EST 1 mg Given 10/25/2020 8:10 AM EST 1 mg sodium chloride 0.9% infusion New Bag 10/25/2020 7:30 AM EST 1,000 mLs 100 mL/hr 1,000 mL, at 100 mL/hr, Intravenous, CONTINUOUS, Starting on Fri10/25/20 at 0730, Until Fri10/25/20 at 0947, Angio/IR (Day of Procedure) documented in this encounter Care Teams Distribution Center Associate Relationship Specialty Start Date End Date Bobby Das MD PCP - General 10/02/[address] [place] [address] [place] [address] documented as of this encounter
--- OUTSIDE RECORDS SUMMARY | 2022-06-23 00:19 | XMS_ITS | Encounter Summary ---
:1940 Author Organization [facility] [place] [address] Care Team Providers Name Role Phone Bobby Das MD Primary Care Provider Encounter Details Date Type Department Care Team Description 09/18/2018 Telephone Dermatology at [facility] Yolanda Fraser RN [address] [place] [address] Social History Tobacco Use Types Packs/Day Years Used Date Current Some Day Smoker 1 50 Smokeless Tobacco: Never Used Sex Assigned at Date Recorded Not on file documented as of this encounter Miscellaneous Notes Telephone Encounter - Yolanda Fraser LPN - 09/18/2018 10:33 AM EST Mohs consultation and preoperative note (H&P) Patient Name: Koko Zamora Age: 77 y.o. 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 male presenting for Mohs micrographic surgery. The dermatologic preoperative information sheet was reviewed with pertinent positive and negative listed as below. DERMATOLOGIC PRE-OPERATIVE EVALUATION AND REVIEW OF SYSTEMS (Check those that apply) Yes No Yes No [] [x] Prior skin cancer(s)? Had previous Mohs surgery with Dr. Solo [] [x] Organ transplant (type/year)? [] [x] History of melanoma? [x] [] History of radiation to head/neck areas for skin cancer / XRT for prostate cancer [] [x] Heart disease? [] [x] Cardiac stents? [x] [] Valve replacement (which valves and year)? Mitral valve repair 2000 [] [x] Pacemaker? [] [x] Defibrillator? [] [x] Joint replacement or scheduled for one soon? (how long ago) [] [x] Hearing aids? [] [x] Cochlear, cosmetic, or other implants? [] [x] Hypertension (controlled/not controlled)? [] [x] Lung Disease/COPD/asthma? And If yes, do youhave difficulty lying flat due to breathing? [] [x] Dementia/stroke? [] [x] Liver disease? [x] [] Other cancers? Hx prostate cancer [] [x] Hepatitis or HIV? [] [x] Diabetes (Type 1 or 2?) [] [x] Bleeding disorder? [] [x] History of reaction to suture or glue [] [x] Fibromyalgia or extreme sensitivity to pain? [] [x] Personal history of addiction to alcohol, drugs, or prescription medications? [] [x] Basal cell nevus syndrome (ie genetic syndromes that predispose to skin cancer) [] [x] Have you EVER had a prior prosthetic joint infection? [] [x] Any drugs that suppress your immune system such as prednisone that you are taking regularly? [] [x] Other (scarring issues, relevant anesthesia allergies, needle phobia, anxiety, etc): [] [x] History of congenital heart defects where a prosthetic device was placed (at or childhood)? BLOOD THINNERS: None Yes No [] [x] NSAIDS [] [x] Fish oil/Multivitamin/Vit E/?? supplements?? (discontinue 1 week before and after surgery) [] [x]???natural?? 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 spouse, children, half-way/mcc)? Spouse Relevant travel history or future plans: None Prior bed tanning use: No Does patient need any assistive devices: No Sunscreen use: No Tobacco use (amount per day, type of tobacco. If no tobacco, former smoker?): Yes, 1/2 ppd Alcohol use (type and amount per day - daily, occasional, never): 3 six packs of beer weekly Marital status: Highest grade completed: College Is the patient literate (ie can patient read and write)?: Yes PAST MEDICAL HISTORY No past medical history on file. PAST SURGICAL HISTORY No past surgical history on file. ALLERGIES: Allergies Allergen Reactions ??? Aspirin Other (See Comments) GI bleed MEDICATIONS: Current Outpatient Medications on File Prior to Visit Medication Sig Dispense Refill ??? sildenafil (VIAGRA) 100 mg Tablet Take [...] Take 1 tablet by mouth daily. ??? [DISCONTINUED] fluticasone (FLONASE) 50 mcg/actuation nasal spray 1 spray by Each Nare route daily. No current facility-administered medications on file prior to visit. documented in this encounter Plan of Treatment Upcoming Encounters Date Type Specialty Care Team Description 07/02/2022 Office Visit Vascular Surgery Jing Ghosh, ADMINISTRATIVE ASSISTANT COORDINATOR [facility] VASCULAR SURGERY [place], [place] [address] (Rebekah rojas) 09/02/2022 Clinical Support Dermatology Thai Lynn MD [facility] DR JENNY BROWN-DERMAT [place]LOGY [place], [place] [address] (Rebekah rojas) 09/02/2022 Procedure visit Dermatology Jace Lynn MD [facility] DR JENNY BROWN-DERMAT [place], [place] [address] (Wo rk) 09/05/2022 Appointment Cardiology Trinity Reid MD [facility] CARDIOLOGY [place], [place] [address] (Wo rk) 09/05/2022 Office Visit Cardiology Trinity Reid MD [facility] CARDIOLOGY [place], [place] [address] (Wo rk) documented as of this encounter Visit Diagnoses Not on filedocumented in this encounter Care Teams Manager Procurement Relationship Specialty Start Date End Date Bobby Das MD PCP - General 10/02/[address] [place] [address] [place] [phone] documented as of this encounter
--- OUTSIDE RECORDS SUMMARY | 2022-06-23 00:19 | XMS_ITS | Encounter Summary ---
:1940 Author Organization [facility] [address] Care Team Providers Name Role Phone Bobby Das MD Primary Care Provider Encounter Details Date Type Department Care Team Description 09/06/2020 Ancillary Procedure Radiology at [facility] Amy Grimaldo [address] [place] [address] 10 [address] JAY [phone] NEUROSURGERY-N [place], [place] [address] Social History Tobacco Use Types Packs/Day Years [...] 07/02/2022 Office Visit Vascular Surgery Jing Ghosh, CASING RUNNER [facility] ER VASCULAR SURGERY [place], [place] [address] (Wo rk) 09/02/2022 Clinical Support Dermatology Thai Lynn MD [facility] ER DR JENNY BILLY-DERMAT [place], [place] [address] (Wo rk) 09/02/2022 Procedure visit Dermatology Jace Lynn MD [facility] DR JENNY BILLY-DERMAT [place], [place] [address] (Wo rk) 09/05/2022 Appointment Cardiology Trinity Reid MD [facility] ER [place]OLOGY [place], [place] [address] (Wo rk) 09/05/2022 Office Visit Cardiology Trinity Reid MD [facility] ER CARDIOLOGY [place], [place] [address] (Wo rk) documented as of this encounter Procedures Procedure Name Priority Date/Time Associated Diagnosis Comme nts FILM LIBRARY Routine 09/06/2020 12:00 AM Results for this STORAGE ONLY MR EDT procedure ar e in SPINE the results section. documented in this encounter Results Film Library- Storage Only MR Spine (09/06/2020 12:00 AM EDT) Specimen (Source) Anatomical Location Collection Method / Collectio n Time Received Time / Laterality Volume Narrative JOSE ALEJANDRO MCKINNON - 09/13/2020 10:40 AM EST This exam is auto-finalizing. It's purpo se is for storage only. Amy Grimaldo MD IMG FILM LIBRARY ORDERABLES Performing Organization Address City/State/ZIP Code Phon e Number [facility] [place], [place] documented in this encounter Visit Diagnoses Not on filedocumented in this encounter Care Teams Email Campaign Specialist Relationship Specialty Start Date End Date Bobby Das MD PCP - General 10/02/[address] [place] [address] [place] [phone] documented as of this encounter
--- OUTSIDE RECORDS SUMMARY | 2022-06-23 00:19 | XMS_ITS | Encounter Summary ---
:1940 [place] [address] Care Team Providers Name Role Phone Bobby Das MD Primary Care Provider Encounter Details Date Type Department Care Team Description 07/20/2019 Laboratory Lab 3L Ilda Gastrointestina l Appointment [facility] hemorrhag e, unspecified Hospital gastrointestinal [facility] [place] [phone] Social History Tobacco Use Types Packs/Day Years [...] Office Visit Vascular Surgery Jing Ghosh APRN [facility] VASCULAR SURGERY [place], [place] [address] (Wo rk) 09/02/2022 Clinical Support Dermatology Thai Lynn MD [facility] DR JENNY BILLY-DERMAT OLOGY [place], [place] [address] (Wo rk) 09/02/2022 Procedure visit Dermatology Jace Lynn MD [facility] DR JENNY [place]ILLY[place], [place] [address] (Rebekah rojas) 09/05/2022 Appointment Cardiology Trinity Reid MD [facility] CARDIOLOGY [place], [place] [address] (Wo rk) 09/05/2022 Office Visit Cardiology Trinity Reid MD [facility] ER CARDIOLOGY [place], [place] [address] (Wo rk) documented as of this encounter Procedures Procedure Name Priority Date/Time Associated Diagnosis Comme nts HC HEMOGRAM Routine 07/20/2019 8:18 Gastrointestinal Results for this AM EDT hemorrhage, unspecified proc edure are in gastrointestinal the results hemorrhage type section. HC PROTHROMBIN TIME Routine 07/20/2019 8:18 Gastrointestinal R esults for this AM EDT hemorrhage, unspecified proc edure are in gastrointestinal the results hemorrhage type section. documented in this encounter Results (ABNORMAL) Hemogram (07/20/2019 8:18 AM EDT) Analysis Performed At Patho logist Time Signature WBC 6.0 4.0 - 9.5 [facility] x10(3)/[facility] LABORATORY RBC 4.50 (L) 4.58 - [facility] XIAO 5.54 [facility] x10(6)/[facility] LABORATORY Hemoglobin 14.8 13.7 - [facility] 16.5 gm/dL [facility] LABORATORY Hematocrit 43.9 40.5 - [facility] 48.5 % [facility] LABORATORY MCV 97.6 (H) 82.9 - [facility] XIAO 93.1 [facility] LABORATORY MCH 32.9 (H) 27.5 - [facility] X[facility]O 32.1 pg [facility] LABORATORY MCHC 33.7 32.0 - [facility] 35.7 gm/dL [facility] LABORATORY Platelets 164 145 - 357 ILDA [facility] x10(3)/[facility] LABORATORY RDWSD 49.3 (H) 36.0 - [facility] 45.0 [facility] LABORATORY RDWCV 13.6 11.4 - [facility] XIAO 13.8 % [facility] LABORATORY MPV 10.0 7.6 - 12.9 [facility] X[facility] LABORATORY nRBC % Auto 0.0 % [facility] LABORATORY nRBC Abs Auto 0.000 0.000 - [facility] 0.000 [facility] x10(3)/[facility] LABORATORY Specimen Anatomical Collection Method Collection Time Receive d Time (Source) Location / / Volume Laterality Blood specimen 07/20/2019 8:18 AM 019 8:21 (specimen) EDT AM EDT Resulting Agency Comment Spec In Lab Bobby Marshall MD HEMATOLOGY ORDERABLES Performing Organization Address City/[facility]/ZIP Code Phon e Number [place] [phone] HOS[facility]ITAL LAB[address]ORY [address] Prothrombin Time (07/20/2019 8:18 AM EDT) P athologist Signature PT 11.3 9.4 - 12.5 [facility] LABORATORY INR 1.0 [facility] LABORATORY Comment: An [...] Location / / Volume Laterality Blood specimen 07/20/2019 8:18 AM 019 8:21 (specimen) EDT AM EDT Resulting Agency Comment Spec In Lab Bobby Marshall MD HEMATOLOGY ORDERABLES Performing Organization Address City/[facility]/ZIP Code Phon e Number [place] [phone] [facility] LAB[address]ORY [address] documented in this encounter Visit Diagnoses Diagnosis Gastrointestinal hemorrhage, unspecified gastrointestinal hemorrhage type documented in this encounter Care Teams Motor Racer Relationship Specialty Start Date End Date Bobby Das MD PCP - General 10/02/[address] [place] [address] [place] [phone] documented as of this encounter
--- OUTSIDE RECORDS SUMMARY | 2022-06-23 00:19 | XMS_ITS | Encounter Summary ---
:1940 Author Organization [facility] Address [facility] [address] [place] [address] Care Team Providers Name Role Phone Bobby Das MD Primary Care Provider Reason for Visit - Closed Specialty Diagnoses / Procedures Referred By Contact Refer red To Contact Procedures Bobby Das MD Film Library- Storage Only [address] [place] [address] Referral ID Status Reason Start Date Expiration Date Visits Requ ested Visits Authorized [id number] Closed 02/23/2021 02/23/2022 1 1 Encounter Details Date Type Department Care Team Description 02/20/2021 Ancillary Procedure Radiology Library at Bobby Almaguer MD [address] [phone] (Rebekah rk) Social History Tobacco Use Types Packs/Day [...] Office Visit Vascular Surgery Jing Ghosh APRN [facility] DR VASCULAR SURGERY [place], [place] [address] (Wo rk) 09/02/2022 Clinical Support Dermatology Thai Lynn MD [facility] DR JENNY BILLY-DERMAT [place], [place] [address] (Wo rk) 09/02/2022 Procedure visit Dermatology Jace Lynn MD [facility] DR JENNY BILLY-DERMAT [place], [place] [address] (Wo rk) 09/05/2022 Appointment Cardiology Trinity Reid MD [facility] CARDIOLOGY [place], [place] [address] (Wo rk) 09/05/2022 Office Visit Cardiology Trinity Reid MD [facility] CARDIOLOGY [place], [place] [address] (Wo rk) documented as of this encounter Procedures Procedure Name Priority Date/Time Associated Diagnosis Comme nts FILM LIBRARY Routine 02/20/2021 12:00 AM Results for this STORAGE ONLY MR EDT procedure ar e in SPINE the results section. documented in this encounter Results Film Library- Storage Only MR Spine (02/20/2021 12:00 AM EDT) Specimen (Source) Anatomical Location Collection Method / Collectio n Time Received Time / Laterality Volume Narrative [facility] - 02/23/2021 12:54 PM EDT This exam is auto-finalizing. It's purpo se is for storage only. Bobby Das MD IMG FILM LIBRARY ORDERABLES Performing Organization Address City/State/ZIP Code Phon e Number RAD [place], [place] documented in this encounter Visit Diagnoses Not on filedocumented in this encounter Care Teams Assistant Grocery Relationship Specialty Start Date End Date Bobby Das MD PCP - General 10/02/[address] [place] [address] [place] [phone] documented as of this encounter
--- OUTSIDE RECORDS SUMMARY | 2022-06-23 00:19 | XMS_ITS | Encounter Summary ---
:1940 Author Organization [facility] Address [facility] [place] [address] Care Team Providers Name Role Phone Bobby Das MD Primary Care Provider Encounter Details Date Type Department Care Team Description 10/25/2020 Laboratory Appointment Lab at [facility] Compression fracture [facility] of T[facility] [place] [phone] Social History Tobacco Use Types Packs/Day Years [...] Office Visit Vascular Surgery Jing Ghosh APRN [facility] VASCULAR SURGERY [place], [place] [address] (Rebekah rojas) 09/02/2022 Clinical Support Dermatology Thai Lynn MD [facility] DR JENNY BILLY-DERMAT [place], [place] [address] (Rebekah rojas) 09/02/2022 Procedure visit Dermatology Jace Lynn MD [facility] DR JENNY BILLY-DERMAT [place], [place] [address] (Rebekah rojas) 09/05/2022 Appointment Cardiology Trinity Reid MD [facility] CARDIOLOGY [place], [place] [address] (Wo rk) 09/05/2022 Office Visit Cardiology Trinity Reid MD [facility] ER CARDIOLOGY [place] [address] (Wo rk) documented as of this encounter Procedures Procedure Name Priority Date/Time Associated Diagnosis Comme nts HC VENIPUNCTURE Routine 10/25/2020 6:35 AM Compression fractur e Results for this EST of T9 vertebra, procedure ar e in initial encounter the result s section. HC PLATELET COUNT Routine 10/25/2020 6:35 AM Compression fract ure Results for this EST of T9 vertebra, procedure ar e in initial encounter the result s section. documented in this encounter Results Platelet count (10/25/2020 6:35 AM EST) P athologist Signature Platelets 192 145 - 357 [facility] x10(3)/[facility] LABORATORY Plat Immature 2.6 0.0 - 7.4 ILDA XIAO % % [facility] LABORATORY Comment: Limitation of the Immature Platelet Frac tion (IPF)-May be less reliable when the platelet count is less than 97l161/u L due to statistical imprecision. The IPF [...] in a decreased state of production. References: [employer] The Clinical Value of the Immature Platelet Fraction (IPF) in Cell Recovery Document Number [id number] 04/2011 [employer] The Role of the Imm ature Platelet Fraction (IPF) in the Differential Diagnosis of Thrombocytopen ia, Document [id number] V003/21/14 P003/23 Specimen Anatomical Collection Method Collection Time Receive d Time (Source) Location / / Volume Laterality Blood specimen 10/25/2020 6:35 AM 020 6:52 (specimen) EST AM EST Resulting Agency Comment Spec In Lab Alphonso Esquivel DO HEMATOLOGY ORDERABLES Performing Organization Address City/[facility]/ZIP [facility] [place] [address] Prothrombin Time (10/25/2020 6:35 AM EST) athologist Signature PT 10.8 9.4 - 12.5 [facility] LABORATORY INR 1.0 [facility] LABORATORY Comment: An INR <2.0 [...] Esquivel DO HEMATOLOGY ORDERABLES Performing Organization Address City/[facility]/ZIP Code [facility] [place] [address] documented in this encounter Visit Diagnoses Diagnosis Compression fracture of T9 vertebra, ini tial encounter documented in this encounter Care Teams Securities Adviser Relationship Specialty Start Date End Date Bobby Das MD PCP - General 10/02/[address] [place] [address] [place] [phone] documented as of this encounter
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
--- OUTSIDE RECORDS SUMMARY | 2022-06-23 00:19 | XMS_ITS | Encounter Summary ---
:1940 Author Organization [facility] Address [facility] [place] [address] Care Team Providers Name Role Phone Bobby Das MD Primary Care Provider Reason for Visit - Closed Specialty Diagnoses / Procedures Referred By Contact Refer red To Contact Procedures Bobby Das MD Film Library- Storage Only DX [address] [place] [id number] Referral ID Status Reason Start Date Expiration Date Visits Requ ested Visits Authorized [id number] Closed 04/13/2021 04/13/2022 1 1 Encounter Details Date Type Department Care Team Description 01/31/2021 Ancillary Procedure Radiology Library at Bobby Almaguer MD [address] [phone] (Rebekah rojas) Social History Tobacco Use Types Packs/Day Years [...] Office Visit Vascular Surgery Jing Ghosh APRN [facility] DR VASCULAR SURGERY [place], [place] [address] (Wo rk) 09/02/2022 Clinical Support Dermatology Thai Lynn MD [facility] DR [address] [place], [place] [address] (Wo rk) 09/02/2022 Procedure visit Dermatology Jace Lynn MD [facility] DR [address] [place], [place] [address] (Wo rk) 09/05/2022 Appointment Cardiology Trinity Reid MD [facility] CARDIOLOGY [place], [place] [address] (Wo rk) 09/05/2022 Office Visit Cardiology Trinity Reid MD [facility] CARDIOLOGY [place], [place] [address] (Wo rk) documented as of this encounter Procedures Procedure Name Priority Date/Time Associated Diagnosis Comme nts FILM LIBRARY Routine 01/31/2021 12:00 AM Results for this STORAGE ONLY DX EDT procedure ar e in SPINE the results section. documented in this encounter Results Film Library- Storage Only DX Spine (01/31/2021 12:00 AM EDT) Specimen (Source) Anatomical Location Collection Method / Collectio n Time Received Time / Laterality Volume Narrative RAD - 04/13/2021 11:47 AM EDT This exam is auto-finalizing. It's purpo se is for storage only. Bobby Das MD IMG FILM LIBRARY ORDERABLES Performing Organization Address City/State/ZIP Code Phon e Number RAD [place], [place] documented in this encounter Visit Diagnoses Not on filedocumented in this encounter Care Teams [employer] Relationship Specialty Start Date End Date Bobby Das MD PCP - General 10/02/[address] [place] [address] [place] [phone] documented as of this encounter
--- OUTSIDE RECORDS SUMMARY | 2022-06-23 00:19 | XMS_ITS | Encounter Summary ---
:1940 Author Organization [facility] [place] [address] Care Team Providers Name Role Phone Bobby Das MD Primary Care Provider Encounter Details Date Type Department Care Team Description 09/22/2020 Telephone Pain and Spine [place] [facility] at [facility] Negra Butt, [place] [phone] Social History Tobacco Use Types Packs/Day Years Used Date Current Some Day Smoker Cigarettes 1 50 Smokeless Tobacco: Never Used Alcohol Use Standard Drinks/Week Comments Yes 42 (1 standard drink = 0.6 oz pure alcoh ol) Sex Assigned at Date Recorded Not on file documented as of this encounter Miscellaneous Notes Telephone Encounter - Negra Butt RN - 09/22/2020 11:08 AM EST Incoming call from patient he states Someone from your office called me about 10 days ago and I amjust getting back to you Nurse advises patient that she will reach out to our referrals team to seeif they called you 10 days ago.patient agrees with this plan and will await a call back. Message forwarded to jerrod cody, pain and spine secretaries documented in this encounter Plan of Treatment Upcoming Encounters Date Type Specialty Care Team Description 07/02/2022 Office Visit Vascular Surgery Jing Ghosh, AIRPLANE DISPATCHER [facility] VASCULAR SURGERY [place], [place] [address] (Wo rk) 09/02/2022 Clinical Support Dermatology Thai Lynn MD 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
--- OUTSIDE RECORDS SUMMARY | 2022-06-23 00:19 | XMS_ITS | Encounter Summary ---
:1940 [place] [address] Care Team Providers Name Role Phone Bobby Das MD Primary Care Provider Reason for Visit Reason Comments Left Leg Pain Auth/Cert Specialty Diagnoses / Procedures Referred By Contact Refer red To Contact Diagnoses Limb ischemia LLE thrombus Fito Summers MD [facility] [place] [address] Referral ID Status Reason Start Date Expiration Date Visits Requ ested Visits Authorized [id number] 1 1 Encounter Details Date Type Department Care Team Description 05/15/2022 Surgery Main Operating Room Savana Summers se, MD [facility] FEMOROPOSANG, [facility] VASCULAR SURG JULIAN [place] [address] [place] ([place] [address] 19.48) [phone] Social History Tobacco Use Types Packs/Day Years Used Date Current Some Day Smoker Cigarettes 0.5 50 Smokeless Tobacco: Never Used Alcohol Use Standard Drinks/Week Comments Yes 42 (1 standard drink = 0.6 oz pure alcoh ol) Sex Assigned at Date Recorded Not on file documented as of this encounter Last Filed Vital Signs Vital Sign Reading Time Taken Comments Blood Pressure 126/85 05/15/2022 12:00 PM EDT Pulse 125 05/15/2022 12:00 PM EDT Temperature 36.4 ??C (97.5 ??F) 05/15/2022 12:00 PM EDT Respiratory Rate 20 05/15/2022 12:00 PM EDT Oxygen Saturation 94% 05/15/2022 12:00 PM EDT Inhaled Oxygen Concentration - - Weight - - Height - - Body Mass Index - - documented in this encounter Discharge Summaries Nasrin [...] onset Afib who presents in transfer from [facility] with acute limb ischemia of the LLE. [...] emergently went to the OR for L COATING INSPECTOR transverse arteriotomy and primary repair, thromboembolectomy of L SFA/PFA/COATING INSPECTOR, reperfusion venous drainage for 250 cc, and [...] Discharge Condition: Good Discharge to: Home with [facility] [address] [address] Future Appointments and Orders Future Appointments and Orders Future Appointments Provider Department Dept Phone 05/23/2022 10:30 AM Loretta Cohen MD Dermatology at [facility] Arrive at: [facility] [address] [place] [address] 06/07/2022 1:30 PM Gail Rae APRN Vascular Surgery at [facility] Arrive at: [facility] [phone] 06/13/2022 7:30 AM Edson Lagos [place] Vascular Lab at [facility] Arrive at: [facility] [phone] 06/13/2022 8:00 AM Fito Summers MD Vascular Surgery at [facility] Arrive at: [facility] 3V [phone] 06/13/2022 10:00 AM Alan Reid MD Cardiology at [facility] Arrive at: [facility] 4A [phone] Future Orders Complete By Expires Ziopatch 48 Hrs-15 Days [[id number] CPT(R)] 05/21/2022 11/20/2022 Process Instructions: Scheduling Instructions: Comments: Questions: Does the patient have a pacemaker? If yes provide HI/LO settings: Apply for 7 or 14 days?: 7 Where will study be performed?: [facility] Clinics JOSSELYN, legs, multiple levels [VAS8 Custom] 06/21/2022 (Approximate) 12/21/2022 Process Instructions: There is no in-house vascular electrical laboratory technician available on weeknights (5pm-8am), weekends, or holidays. IF THIS IS A REQUEST FOR AN EMERGENT STUDY DURING THOSE HOURS, please have the senior provider responsible for the patient page the Vascular Surgery Fellow/Senior Resident conventions assistant to discuss options. Scheduling Instructions: Questions: Indication for study/signs & symptoms: ALI s/p L fem cutdown with thromboembolectomy Question to be answered: Perfusion to feet? Please check toe pressure Preferred location?: [facility] Referral to Cardiology [REF12 Custom] As directed [...] Zamora for admission to Home Health. [address] [facility] [address] (home) Date of : 1940 Inpatient DOCUMENTATION FOR VNA SERVICES (INCLUDING THOSE PATIENTS WITH MEDICARE COVERAGE REQUIRING HOME VNA SERVICES AND/OR HOSPICE SERVICES) PATIENT'S LOCATION: Koko Zamora [address] [facility] [address] (home) Cell: No relevant phone numbers on file. Tank House Supervisor's Name: Koko In discussion with the attending physician, it is certified that this patient is under their care and that they, or a Nurse Practitioner,Clinical Nurse specialist or Physician Business Development Director who is working directly with them, had [...] for managing ADL's. HOME HEALTH CARE AGENCY: [facility] [address] [place] [id number] Start of care: Within 24 to 48 [...] obtained from this patient'sPCP: Bobby Das MD [address] [place] [address] / [place] [address] All VNA agencies which cover the [...] For any problems or questions please call [phone] For issues on weeknights after 5pm and weekends please call [phone] and ask for the Vascular Fellow conventions assistant. JOSEE Santiago Vascular Surgery 05/21/2022 documented in [...] For any problems or questions please call [phone] For issues on weeknights after 5pm and weekends please call [phone] and ask for the Vascular Fellow conventions assistant. documented in this encounter Medications at Time [...] 04/12/20 21 (FLONASE) 50 mcg/actuation Nare route [place], Suspension daily as needed. fluorouraciL (EFUDEX) 5 [...] onset Afib who presents in transfer from [facility] with acute limb ischemia of the LLE. [...] status, full code. JOSEE Santiago 05/21/2022 Pager: [phone] PaBrannon gamino, PT - 05/21/2022 10:35 AM EDT Physical [...] plan as stated. Time IN / OUT: 5088-8588 Total Minutes, Physical Therapy: 25 Billing Code: 2 TA Brannon Isaacs DPT Pager: [phone] Physical Therapy Inpatient Rehabilitation Department [place] Jean [...] 04/17/2021 in Pain and Spine Center at [facility] Weight 79.8 kg (175 lb 14.8 oz) [...] and plan of care per Dr. Mcnamara (airline captain). Please refer to her note above for [...] limb ischemia (thromboembolic) and he is a prison smoker (1/2 ppd, recommend nicotine patch). His [...] to Hosp-Admission (Current) from 05/15/2022 in 4 [facility] Office Visit from 04/17/2021 in Pain and Spine Center at [facility] Weight 79.8 kg (175 lb 14.8 oz) [...] systolic dysfunction are new. Assessment & Plan oKko Zamora is a 81 y.o. gentleman with [...] findings andplan of care per Dr. Mcnamara (airline captain). Please refer to her note above for [...] a mitral repair in 2000 (not at [facility]) with no CAD at that time. Currently, [...] AF and the first documented HR at [facility] was 125 bpm (presented to an an [...] cardiology clinic. We will continue to follow. Dottie Hill APRN - 05/20/2022 8:34 AM EDT Vascular Surgery Progress Note Koko Zamora is a 81 y.o. male with w new onset Afib who presents in transfer from [facility] with acute limb ischemia of the LLE. [...] management following Dottie Hill APRN 05/20/2022 Pager: [phone] Laney Atkins RN - 05/20/2022 1:14 AM EDT Pt Koko transferred to room from [facility]. A&Ox4, oriented to room and call boo. Masimo and telemetry placed. In agreement with assessment as documented this evening by Nuris ASHLEY. No complaints at this time. Pt aware of NPO status and plan for cardiac cath in AM. Urinal provided. Resting comfortably in bed. Nuris Lester RN - 05/20/2022 1:09 AM EDT Pt. Transferred to [facility]. RN accompanied patient to floor and handed off to [facility] RN Dottie Hill APRN - 05/19/2022 10:02 AM EDT Vascular Surgery Progress Note Koko Zamora is a 81 y.o. male with w new onset Afib who presents in transfer from [facility] with acute limb ischemia of the LLE. [...] management following Dottie Hill APRN 05/19/2022 Pager: [phone] Emily Sauceda RN - 05/19/2022 6:28 AM EDT OUTCOME EVALUATION NOTE: OUTCOME SUMMARY: Patient AOx4, VSS on RA. Afib on tele. HR controlled w/ PRN metop, given x2. Denies CP, SOB, n/v. See flowsheets for NVC. Dressings to LLE CDI, prevena [place] to groin intact. Voiding to urinal. LBM SWAGE TENDER, patient stating he will maybe try the [...] adequately without difficulty to bedside urinal. LBM SWAGE TENDER. Up to chair this AM with nursing staff. Worked with PT, tolerated well. Diet changed to regular at 1800.Plan is for cardiac cath on Friday. PLAN MOVING FORWARD: Bleeding precautions Pain management neurovascular checks PT/OT feed mill lab technician INDIVIDUALIZED FALL PREVENTION INTERVENTIONS: Patient-specific fall [...] onset Afib who presents in transfer from [facility] with acute limb ischemia of the LLE. [...] mL Intravenous BID ??? PHENobarbitaL 0.12 mg/kg/dose ([place]) Oral BID ??? thiamine 100 mg Oral [...] management following Dottie Hill APRN 05/18/2022 Pager: [phone] Brannon Isaacs, PT - 05/18/2022 10:00 AM [...] IR Biopsy Spine 07/20/2019 Bobby Marshall MD [facility] INTERVENTIONL RAD ??? IR VERTEBROPLASTY LUMBAR MULTIPLE LEVELS 07/20/2019 IR Vertebroplasty Lumbar Multiple Levels 07/20/2019 Bobby Marshall MD [facility] INTERVENTIONL RAD ??? IR VERTEBROPLASTY THORACIC SINGLE LEVEL 10/25/2020 IR Vertebroplasty Thoracic Single Level 10/25/2020 Matt Chisholm MD [facility] INTERVENTIONL RAD ??? PRO EMBLC/THRMBC FEMORAL POPLITEAL AORTO-ILIAC ARTERY Left 05/15/2022 EMBOLECTOMY OR THROMBECTOMY, FEMOROPOPLITEAL, AORTOILIAC ARTERY BY LEG INCISION (WRVU 19.48) performed by Fito Summers MD at [facility] MAIN OR Social History: Pt lives [...] in this evaluation. Time IN / OUT: 0815-7834 Total Minutes, Physical Therapy: 30 Billing Code: Basilio Isaacs, PT Pager: [phone] Physical Therapy Inpatient Rehabilitation Department Emily Sauceda RN - 05/18/2022 4:34 AM EDT OUTCOME EVALUATION NOTE: OUTCOME SUMMARY: Patient AOx4, VSS on 2LNC. Afib on tele. HR above 120, MD aware, PRN IV metop given x1, HR returned to 90's-low 100's. Denies CP, SOB, n/v. See flowsheets for NVC. Dressings to LLE CDI, prevena [place] to groin intact. Voiding to urinal. LBM SWAGE TENDER. Heparin gtt therapeutic. Pain controlled. Patient sleeping [...] sensory deficits provided, if applicable: [X] N/A T Nuris Lester RN - 05/17/2022 6:25 PM [...] adequately without difficulty to bedside urinal. LBM SWAGE TENDER. Patient not OOB this shift. Currently NPO awaitingprocedure in label stitcher. PLAN MOVING FORWARD: Bleeding precautions Pain management neurovascular checks PT/OT NPO for label stitcher INDIVIDUALIZED FALL PREVENTION INTERVENTIONS: Patient-specific fall risk [...] the Emergency Department as a transfer from [facility] with left lower extremity limb ischemia. He went to [facility] and was startedon heparin and transferred to [facility] for evaluation by vascular surgery with [...] he will will be going to the label stitcher for evaluation. Will defer PT eval at present but will see as ordered post cardiac catheritizaton. Social Hx:Pt lives with his Ursula in [place], [place] in a 2 level home in [...] WBAT LLE LISBET HERMAN PT Pager # [phone] In-Pt Rehab Medicine Dottie Hill APRN - 05/17/2022 7:42 AM EDT Vascular Surgery Progress Note Koko Zamora is a 81 y.o. male with w new onset Afib who presents in transfer from [facility] with acute limb ischemia of the LLE. [...] mL Intravenous BID ??? PHENobarbitaL 0.24 mg/kg/dose ([place]) Oral BID Followed by ??? [START ON 05/18/2022] PHENobarbitaL 0.12 mg/kg/dose ([place]) Oral BID ??? thiamine 100 mg Oral [...] management following Dottie Hill APRN 05/17/2022 Pager: [phone] Sary Dos Santos, RN - 05/17/2022 12:16 [...] ambulation]: Bedrest ?? Surveillance [continuous indirect monitoring]: Brendao, Purposeful Rounding, Nurse Knowledge Exchangeat Bedside, Bed [...] onset Afib who presents in transfer from [facility] with acute limb ischemia of the LLE. [...] mL Intravenous BID ??? PHENobarbitaL 0.48 mg/kg/dose ([place]) Oral BID Followed by ??? [START ON 05/17/2022] PHENobarbitaL 0.24 mg/kg/dose ([place]) Oral BID Followed by ??? [START ON 05/18/2022] PHENobarbitaL 0.12 mg/kg/dose ([place]) Oral BID ??? thiamine 100 mg Oral [...] management following Edward Rodríguez MD 05/16/2022 Pager: [phone] Sary Dos Santos RN - 05/16/2022 12:52 [...] 2129 Hand off to DION Ramirez 3 [place] documented in this encounter H&P Notes Kerry [...] kidney disease or diabetes. NPO status: Since 710 PM Outpatient Medications Marked as Taking for [...] onset Afib who presents in transfer from [facility] with acute limb ischemia of the LLE. [...] IR Biopsy Spine 07/20/2019 Bobby Marshall MD [facility] INTERVENTIONL RAD ??? IR VERTEBROPLASTY LUMBAR MULTIPLE LEVELS 07/20/2019 IR Vertebroplasty Lumbar Multiple Levels 07/20/2019 Bobby Marshall MD [facility] INTERVENTIONL RAD ??? IR VERTEBROPLASTY THORACIC SINGLE LEVEL 10/25/2020 IR Vertebroplasty Thoracic Single Level 10/25/2020 Matt Chisholm MD [facility] INTERVENTIONL RAD Social Hx: Social History [...] Refill ??? fluticasone propionate (FLONASE) 50 mcg/actuation [place], Suspension as needed. ??? fluorouraciL (EFUDEX) 5 [...] and consented. Tim Chicas MD 05/15/2022 Pager: [phone] documented in this encounter ED Notes Lc Harris PA - 05/15/2022 1:20 PM EDT ED Provider Note HPI: Koko Zamora is a 81 y.o. male with history of atrial fibrillation not on anticoagulation, and GI bleeding who presents to the Emergency Department as a transfer from [facility] with left lower extremity limb ischemia. Patient says that the symptoms started roughly 630 this morning when he developed severe pain in his left lower extremity. He went to [facility] and was started on heparin and transferred to [facility] for evaluation by vascular surgery. Review [...] src: Oral SpO2: 94 % O2 Device: IN O2 Flow Rate (L/min): 2 L/min Physical [...] lower extremity earlier today and went to [facility] where it was determined that he had ischemia of the left lower extremity. Vascular surgery [facility] was contacted and he was transferred here [...] orders before pt. Arrival. Pt. Arrived at [facility] by EMS at 1150, vascular team at [...] in an outpatient cardiac rehabilitation program at [facility] was discussed. Patient agrees to a referral to this program. Timing will depend on his recovery from Vascular surgery. He is going home w/VNA PT. I gave him the brochure for the program at [facility] for future reference. Care Management Discharge - [...] information for follow-up Home Health & Hospice, [place] [address] [place] [address] Transportation: family or friend will provide Functional [...] Type: *No Product type* / Secondary Insurance: [facility] Prescription Coverage: Yes This plan was formulated with input from patient and team. All are in agreement with plan. RS has communicated with [facility] - for initial IMM. Shawn (Satish) DION López RN/CM - Cellphone: [phone] Pager: [phone] Covering Service RN/CM Plan of Care - [...] catheterization, transferred in hospital bed accompanied by R Developer RN, remains on telemetry monitoring. Heparin gtt turned off at time of transfer. 1825 - pt to transfer to [facility] 429 following cardiac cath, report given to DION Waldron. Family directedto [facility]U locations, belongings gathered including glasses. PLAN MOVING FORWARD: Neurovasc/pulse checks Q4H Heparin gtt - next UFH 05/21 with am labs Bleeding precautions Remote telemetry, [...] Type: *No Product type* / Secondary Insurance: [facility] Last Physical Therapy Recommendation: home with home health, home with supervision with None Last Occupational Therapy Recommendation: with Plan for discharge is: Home w/ Services Outpatient Agency/Support Group Needs: None Home Health Services: Registered Nurse, Physical Therapy, Occupational Therapy Agency Referrals: I have met with the patient to: ?? discuss discharge planning needs. ?? provide the [facility], Office of Care Management letter from the Bilingual Operator pertaining to rehab referrals. ?? provide a letter describing our affiliations within the [facility] and educate about their right to choose where referrals are sent. ?? provide a list of Home Health Agencies / Durable Medical Equipment vendors which serve their preferred geographic area. ?? provided patient with [facility] Star Quality Rating handout. They have requested referrals to: [facility]. [address] [place] [address] Note routed to a Particleboard Factory Worker who will communicate referrals to facilities and provide any required information. Transportation: family or friend will provide Barriers to discharge: None Plan going forward: Patient is going for a cardiac cath today and plan will come from there. Patientwas recently seen by PT and they recommend VNA at time of discharge. [facility] was routed and pendedat this time. Care Management will continue to follow and assist with discharge planning and coordination of care as indicated. Anticipated Date of Discharge: 05/21/2022 Nataly RICHMOND RN Phone: [phone] Pager: [phone] Plan of Care - Laney Atkins RN [...] from the original note were not included. [facility] [place] [address] [place] [address] INPATIENT CARDIOLOGY CONSULT NOTE Date of Consultation: 05/17/2022 Admit Date: 05/15/2022 Hospital Day 2 days Reason for Consult: New afib Active Problems: Active Hospital Problems Diagnosis Limb ischemia Resolved Hospital Problems No resolved problems to display. HPI: Koko Zamora is a 81 y.o. male with a PMHx significant for MVP (s/p MV repair 2000), tobacco use, HLD, who presented to [facility] from OSH on 05/15 with acute limb ischemia of LLE and was found to be in atrial fibrillation. Patient had sudden onset LLE pain on 05/15 and presented to [facility], where he was started on heparin and transferred to [facility]. Upon arrival to [facility], patient was in atrial fib with RVR [...] IR Biopsy Spine 07/20/2019 Bobby Marshall MD [facility] INTERVENTIONL RAD IR VERTEBROPLASTY LUMBAR MULTIPLE LEVELS 07/20/2019 IR Vertebroplasty Lumbar Multiple Levels 07/20/2019 Bobby Marshall MD [facility] INTERVENTIONL RAD IR VERTEBROPLASTY THORACIC SINGLE LEVEL 10/25/2020 IR Vertebroplasty Thoracic Single Level 10/25/2020 Matt Chisholm MD [facility] INTERVENTIONL RAD PRO EMBLC/THRMBC FEMORAL POPLITEAL AORTO-ILIAC ARTERY Left 05/15/2022 EMBOLECTOMY OR THROMBECTOMY, FEMOROPOPLITEAL, AORTOILIAC ARTERY BY LEG INCISION (WRVU 19.48) performed by Fito Summers MD at [facility] MAIN OR Allergies Allergen Reactions Aspirin Other (See Comments) GI bleed Out-Patient Medications: Medications Prior to Admission Medication Sig Dispense Refill Last Dose fluorouraciL (EFUDEX) 5 % Cream daily. CRESTOR 40 mg Tablet Take 40 mg by mouth daily. fluticasone propionate (FLONASE) 50 mcg/actuation [place], Suspension as needed. ascorbic acid, vitamin C, [...] 5 mL Intravenous BID PHENobarbitaL 0.24 mg/kg/dose ([place]) Oral BID Followed by [START ON 05/18/2022] PHENobarbitaL 0.12 mg/kg/dose ([place]) Oral BID thiamine 100 mg Oral Daily folic acid 1,000 mcg Oral Daily multivitamin with minerals 1 tablet Oral Daily heparin (porcine) infusion 1,200 Units/hr (05/17/22 2159) Family History: No family history on file. [...] ED to Hosp-Admission (Current) from 05/15/2022 in 3 [facility] Office Visit from 04/17/2021 in Pain and Spine Center at [facility] Weight 79.8 kg (175 lb 14.8 oz) [...] continue to follow Anne-Marie Larson MD Pager [phone] Clinic: [phone] 05/17/22 6:22 PM Initial Assessments - Ifrah [...] spouse would be surrogate decision maker per [place] surrogate decision making law. (Only good for 180 days) Any patient receiving care at [facility] must abide by [place] law. The hierarchy for surrogate decision making [...] (i) The agent with financial power of starch mangle tender or a conservator appointed in accordance with [...] raised toilet seat Home Address confirmed as: [address] [place] [address] Social & Family Supports: All names listed below confirmed with patient as Incorrect. Will notify toni to correct. Wifes address is same as and phone is [phone]. Extended Emergency Contact Information Primary Emergency Contact: Ursula Zamora Address: [address] [place] [address] [address] [place] [address] [facility] Relation: Spouse Current Care Provided [...] Type: *No Product type* / Secondary Insurance: [facility] Prescription Coverage: Yes Preferred Pharmacy: [id number] - [place], [place] - [address] [facility] [address] [facility] [address] [id number] - [place], [place] - [address] [facility] [address] [facility] [address] [place] Status: Patient is a : unable to assess Primary Care Provider: Bobby Das MD [phone] Patient/Caregiver Goals of Treatment: to walk again Potential Needs for Transition of Care: none noted per 05/16 IDR Transportation: family will provide Transportation Anticipated: family or friend will provide Concerns to be Addressed: no discharge needs identified Assessment: Patient is admitted to vascular surg service for left lower extremity limb ischemia Plan: Per PT OT recommendations . Has used [employer] in the past. A member of the Care Management team will continue to monitor progress, follow for continuity of care and assist with transition of care planning. Ifrah Bell RN BSN [place] AgentTire Mold Tester of Care Management Pager [phone] Brief Op Note - Erin Garza MD - 05/15/2022 5:04 PM EDT Brief Operative Note Patient Name: Koko Zamora : [id number] MR#: [id number] Case Date: 05/15/2022 Surgeon: Surgeon(s) and Role: [...] Garza MD - 05/15/2022 2:08 PM EDT [facility] Operative Note Patient Name: Koko Zamora : [id number] MR#: [id number] Case Date: 05/15/2022 Surgeon: Surgeon(s) and Role: [...] Office Visit Vascular Surgery Jing Ghosh, [facility] VASCULAR SURGERY [place], [place] [address] (Wo rk) 09/02/2022 Clinical Support Dermatology hTai Lynn MD [facility] DR JENNY BILLY-DERMAT [place], [place] [address] (Wo rk) 09/02/2022 Procedure visit Dermatology Jace Lynn MD [facility] DR JENNY BILLY-DERMAT [place], [place] [address] (Wo rk) 09/05/2022 Appointment Cardiology Trinity Reid MD [facility] CARDIOLOGY [place], [place] [address] (Wo rk) 09/05/2022 Office Visit Cardiology Trinity Reid MD [facility] CARDIOLOGY [place], [place] [address] (Wo rk) Scheduled Referrals Name [...] Component Value Ref Test Analysis Performed At [facility] Range Method Time Signature VB Text Department: Vascular Surgery Lab VASCUBASE Report Patient: [id number] (KOKO ZAMORA) CPT: 92168 Referring Physician: FITO SUMMERS ?? Phone: Indications: s/p L COATING INSPECTOR endart. Diabetes mellitus: no Findings: Right ?Pressure [...] athologist Signature Heparin UFH 0.42 IU/mL [facility] LABORATORY Comment: Heparin (anti-Xa) levels should [...] Organization Address City/State/[place] [address] Differential, Automated (05/21/2022 6:15 AM EDT) athologist Signature Neutrophils % 58.8 % [facility] LABORATORY Neutr Abs (ANC) 3.97 1.70 - [place] HEALTH 6.10 [facility] x10(3)/[facility] LABORATORY Lymphocytes % 25.2 % [facility] LABORATORY Lymphocytes Abs 1.7 0.9 - 3.2 [facility] x10(3)/[facility] LABORATORY Monocytes % 12.9 % [facility] LABORATORY Monocyte Abs 0.9 0.3 - 0.9 [facility] x10(3)/[facility] LABORATORY Eosinophils % 2.1 % [facility] LABORATORY Eosinophils Abs 0.1 0.0 - 0.4 [facility] x10(3)/[facility] LABORATORY Basophils % 0.4 % [facility] LABORATORY Basophils Abs 0.0 0.0 - 0.1 [facility] x10(3)/[facility] LABORATORY Immature Gran % 0.60 % [facility] LABORATORY Comment: Immature granulocytes(IG's)percentage an d absolute count will include metamyelocytes, myelocytes, and promyelo cytes. Blood smears from CBCs yielding IG's will be scanned manually for concor danlara. If this scan disagrees with the automated IG or if promyelocytes are not ed, a manual differential will be performed. Rain Gran Abs 0.04 0.00 - 0.04 x10(3)/[facility] LABORATORY Specimen Anatomical Collection Method Collection Time Receive d Time (Source) Location / / Volume Laterality Blood 05/21/2022 6:15 AM 6:38 EDT AM EDT Resulting Agency Comment Spec In Lab Edward Rodríguez MD HEMATOLOGY ORDERABLES Performing Organization Address City/State/[place] [address] (ABNORMAL) Hemogram (05/21/2022 6:15 AM EDT) [facility] gist Method Time Signature WBC 6.8 4.0 - 9.5 [facility] x10(3)/[facility] LABORATORY RBC 3.59 (L) 4.58 - [facility] 5.54 [facility] x10(6)/[facility] LABORATORY Hemoglobin 11.8 (L) 13.7 - [facility] 16.5 g/dL [facility] LABORATORY Hematocrit 34.5 (L) 40.5 - [facility] 48.5 % [facility] LABORATORY MCV 96.1 (H) 82.9 - [facility] 93.1 [facility] LABORATORY MCH 32.9 (H) 27.5 - [facility] 32.1 pg [facility] LABORATORY MCHC 34.2 32.0 - [facility] 35.7 g/dL [facility] LABORATORY Platelets 198 145 - 357 [facility] x10(3)/[facility] LABORATORY RDWSD 44.9 36.0 - [facility] 45.0 [facility] LABORATORY RDWCV 12.6 11.4 - [facility] 13.8 % [facility] LABORATORY MPV 10.0 7.6 - 12.9 [facility] LABORATORY nRBC % Auto 0.3 % [facility] LABORATORY nRBC Abs Auto 0.020 (H) 0.000 - [facility] [place] 0.000 [facility] x10(3)/[facility] LABORATORY Specimen Anatomical Collection Method Collection Time Receive d Time (Source) Location / / Volume Laterality Blood 05/21/2022 6:15 AM 6:38 EDT AM EDT Resulting Agency Comment Spec In Lab Edward Rodríguez MD HEMATOLOGY ORDERABLES Performing Organization Address City/[facility]/[place] [address] EKG 12 Lead (05/20/2022 7:04 PM EDT) Component Value Ref Range Test Analysis Performed Pathologis t Method Time At Signature Ventricular rate 101 BPM MUSE SYSTEM QRS Duration 116 ms MUSE SYSTEM Q-T Interval 378 ms MUSE SYSTEM QTC Calculated 490 ms MUSE SYSTEM (Bezet) Calculated R Joppa -53 degrees MUSE SYSTEM Calculated T Joppa 101 degrees MUSE SYSTEM INTERPRETATION Atrial fibrillation [...] SYSTEM - 05/20/2022 7:09 PM ED T ?[facility] ? Cardiac Cathete rization/Intervention Report ? Patient Name: Koko Zamora. ? Procedure Date: 05/20/2022 ? A #: [id number] ? Primary Physician: Abundio Servin ? Case #: [id number] ? File Name: [id number] ? Catheterization Order Number: [id number] ? [facility] ? Final Report [place], [place] ? Patient Name: ? Koko Sullivan. Klarissa uson ? ID#: ?[id number] ? : ?1940 ? Procedure Date: ? [...] procedure was Urgent. The indication for ?the label stitcher visit is cardiomyo nita. Chest pain symptom [...] ?3.5 guiding catheter and a 3.[address] [facility] [address] ??20 Mhz. ??Imaging ?was successful. ??Image [...] 1. Lesion length was ? 25mm. 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 This ? bifurcation yanci renner was treated with a single stent, side [...] premounted 2. 75 x 30 mm Rudy [place] (AMPARO) was deployed ? with a maximum [...] require ?modification of this regimen. C onsult [facility] Interventional Cardiology for ?questions. ?The 1 year [...] 123 65 - 199 [facility] [place] mg/dL [facility] LABORATORY Comment: Supplemental ranges: <140 mg/dL before meals <180 mg/dL all other times of the day Specimen Anatomical Collection Method Collection Time Receive d Time (Source) Location / / Volume Laterality Blood 05/20/2022 5:42 PM 2 5:42 EDT PM EDT Fito Summers MD POINT OF CARE TEST ORDERABLE S Performing Organization Address City/State/[place] [address] (ABNORMAL) BMP w/fasting Glucose (05/20/2022 10:50 AM EDT) P athologist Signature Glucose 152 (H) 65 - 99 [facility] [place] Fasting mg/dL [facility] LABORATORY Comment: ?Fasting* Glucose Interpretive C [...] of Diabetes Mellitus, Position Statement from the [place] [employer]. ??Diabete s Care, Volume 33, Supplement 1, Nov 2009 BUN 11 10 - 20 mg/dL [facility] LABORATORY Creatinine 0.63 (L) 0.80 - 1.50 mg/dL [facility] LABORATORY Sodium 137 135 - 145 mmol/L [facility] LABORATORY Potassium 3.6 3.5 - 5.0 mmol/L [facility] LABORATORY Comment: Please note: ??Patients with WBC >100,00 0 may have falsely elevated Potassium levels. ??For accurate Potassium quantif ication in these patients send serum separator tube (gold top) for subsequent determinations. ??Contact the Clinical Chemistry Laboratory if there are any qu estions. Chloride 103 98 - 107 mmol/L [facility] LABORATORY CO2 24 22 - 31 mmol/L [facility] LABORATORY Anion Gap 10 5 - 15 mmol/L [facility] LABORATORY Calcium 8.7 8.5 - 10.5 mg/dL [facility] LABORATORY Estimated GFR 97 >=60 mL/min/1.73 m?? [facility] LABORATORY Comment: This patient's [...] Summers MD CHEMISTRY ORDERABLES Performing Organization Address City/[facility]/[place] [address] Heparin (unfractionated) Level (05/20/2022 5:02 AM EDT) P athologist Signature Heparin UFH 0.57 IU/mL [facility] LABORATORY Comment: Heparin (anti-Xa) levels should [...] Summers MD HEMATOLOGY ORDERABLES Performing Organization Address City/[facility]/[place] [address] (ABNORMAL) Differential, Automated (05/20/2022 5:02 AM EDT) Patholo gist Method Time Signature Neutrophils % 58.1 % [facility] LABORATORY Neutr Abs (ANC) 4.52 1.70 - [facility] 6.10 [facility] x10(3)/[facility] LABORATORY Lymphocytes % 24.1 % [facility] LABORATORY Lymphocytes Abs 1.9 0.9 - 3.2 [facility] x10(3)/[facility] LABORATORY Monocytes % 13.8 % [facility] LABORATORY Monocyte Abs 1.1 (H) 0.3 - 0.9 [facility] x10(3)/[facility] LABORATORY Eosinophils % 2.6 % [facility] LABORATORY Eosinophils Abs 0.2 0.0 - 0.4 [facility] x10(3)/[facility] LABORATORY Basophils % 0.8 % [facility] LABORATORY Basophils Abs 0.1 0.0 - 0.1 [facility] x10(3)/[facility] LABORATORY Immature Gran % 0.60 % [facility] LABORATORY Comment: Immature granulocytes(IG's)percentage an d absolute count will include metamyelocytes, myelocytes, and promyelo cytes. Blood smears from CBCs yielding IG's will be scanned manually for concor dance. If this scan disagrees with the automated IG or if promyelocytes are not ed, a manual differential will be performed. Rain Gran Abs 0.05 (H) 0.00 - 0.04 x10(3)/[facility] LABORATORY Specimen Anatomical Collection Method Collection Time Receive d Time (Source) Location / / Volume Laterality Blood 05/20/2022 5:02 AM 5:19 EDT AM EDT Resulting Agency Comment Spec In Lab Edward Rodríguez MD HEMATOLOGY ORDERABLES Performing Organization Address City/State/[place] [address] (ABNORMAL) Hemogram (05/20/2022 5:02 AM EDT) Analysis Performed At Patho logist Time Signature WBC 7.8 4.0 - 9.5 [facility] x10(3)/[facility] LABORATORY RBC 3.53 (L) 4.58 - [facility] 5.54 [facility] x10(6)/[facility] LABORATORY Hemoglobin 11.4 (L) 13.7 - [facility] 16.[facility] g/dL [facility] LABORATORY Hematocrit 34.3 (L) 40.5 - [facility] 48.5 % [facility] LABORATORY MCV 97.2 (H) 82.9 - [facility] 93.1 fL [facility] LABORATORY MCH 32.3 (H) 27.5 - [facility] 32.1 pg [facility] LABORATORY MCHC 33.2 32.0 - [facility] 35.7 g/dL [facility] LABORATORY Platelets 181 145 - 357 [facility] x10(3)/[facility] LABORATORY RDWSD 46.4 (H) 36.0 - [facility] FAY[facility] 45.0 [facility] LABORATORY RDWCV 13.0 11.4 - [facility] 13.8 % [facility] LABORATORY MPV 10.4 7.6 - 12.9 [facility] LABORATORY nRBC % Auto 0.0 % [facility] LABORATORY nRBC Abs Auto 0.000 0.000 - [facility] 0.000 [facility] x10(3)/[facility] LABORATORY Specimen Anatomical Collection Method Collection Time Receive d Time (Source) Location / / Volume Laterality Blood 05/20/2022 5:02 AM 5:19 EDT AM EDT Resulting Agency Comment Spec In Lab Edward Rodríguez MD HEMATOLOGY ORDERABLES Performing Organization Address City/State/[place] [address] Heparin (unfractionated) Level (05/19/2022 3:26 AM EDT) P athologist Signature Heparin UFH 0.59 IU/mL [facility] LABORATORY Comment: Heparin (anti-Xa) levels should [...] Organization Address City/State/[place] [address] (ABNORMAL) Differential, Automated (05/19/2022 3:26 AM EDT) [facility] Method Time Signature Neutrophils % 62.1 % [facility] LABORATORY Neutr Abs (ANC) 4.59 1.70 - [facility] 6.10 [facility] x10(3)/[facility] LABORATORY Lymphocytes % 22.1 % [facility] LABORATORY Lymphocytes Abs 1.6 0.9 - 3.2 [facility] x10(3)/[facility] LABORATORY Monocytes % 13.5 % [facility] LABORATORY Monocyte Abs 1.0 (H) 0.3 - 0.9 [facility] x10(3)/[facility] LABORATORY Eosinophils % 1.3 % [facility] LABORATORY Eosinophils Abs 0.1 0.0 - 0.4 [facility] x10(3)/[facility] LABORATORY Basophils % 0.5 % [facility] LABORATORY Basophils Abs 0.0 0.0 - 0.1 [facility] x10(3)/[facility] LABORATORY Immature Gran % 0.50 % [facility] LABORATORY Comment: Immature granulocytes(IG's)percentage an d absolute count will include metamyelocytes, myelocytes, and promyelo cytes. Blood smears from CBCs yielding IG's will be scanned manually for concor dance. If this scan disagrees with the automated IG or if promyelocytes are not ed, a manual differential will be performed. Rain Gran Abs 0.04 0.00 - 0.04 x10(3)/[facility] LABORATORY Specimen Anatomical Collection Method Collection Time Receive d Time (Source) Location / / Volume Laterality Blood 05/19/2022 3:26 AM 2 3:59 EDT AM EDT Resulting Agency Comment Spec In Lab Edward Rodríguez MD HEMATOLOGY ORDERABLES Performing Organization Address City/State/[place] [address] (ABNORMAL) Hemogram (05/19/2022 3:26 AM EDT) Analysis Performed At Patho logist Time Signature WBC 7.4 4.0 - 9.5 [facility] x10(3)/[facility] LABORATORY RBC 3.74 (L) 4.58 - [facility] 5.54 [facility] x10(6)/[facility] LABORATORY Hemoglobin 12.1 (L) 13.7 - [facility] 16.5 g/dL [facility] LABORATORY Hematocrit 36.4 (L) 40.5 - [facility] 48.5 % [facility] LABORATORY MCV 97.3 (H) 82.9 - [facility] 93.1 [facility] LABORATORY MCH 32.4 (H) 27.5 - [facility] 32.1 pg [facility] LABORATORY MCHC 33.2 32.0 - [facility] 35.7 g/dL [facility] LABORATORY Platelets 168 145 - 357 [facility] x10(3)/[facility] LABORATORY RDWSD 46.9 (H) 36.0 - [facility] 45.0 [facility] LABORATORY RDWCV 13.0 11.4 - [facility] 13.8 % [facility] LABORATORY MPV 10.5 7.6 - 12.9 [facility] LABORATORY nRBC % Auto 0.0 % [facility] LABORATORY nRBC Abs Auto 0.000 0.000 - [facility] 0.000 [facility] x10(3)/[facility] LABORATORY Specimen Anatomical Collection Method Collection Time Receive d Time (Source) Location / / Volume Laterality Blood 05/19/2022 3:26 AM 3:59 EDT AM EDT Resulting Agency Comment Spec In Lab Edward Rodríguez MD HEMATOLOGY ORDERABLES Performing Organization Address City/State/ZIP Code Phon e Number [place] [phone] HOS[address] LAB[address]ORY Drive TSH (05/18/2022 8:00 PM EDT) P athologist Signature TSH 2.27 0.27 - 4.20 [facility] mcIU/mL [facility] LABORATORY Comment: Reference Interval (mcIU/mL): Females: ??First Trimester: 0.23-3.88 ??Second Trimester: 0.22-3.90 ??Third Trimester: 0.44-4.66 Specimen Anatomical Collection Method Collection Time Receive d Time (Source) Location / / Volume Laterality Blood 05/18/2022 8:00 PM 8:06 EDT PM EDT Resulting Agency Comment Spec In Lab Fito Summers MD CHEMISTRY ORDERABLES Performing Organization Address City/State/ZIP Code Phon e Number [place] [phone] HOS[address] LAB[address]ORY Drive (ABNORMAL) Differential, Automated (05/18/2022 3:34 AM EDT) [facility] Method Time Signature Neutrophils % 67.2 % [facility] LABORATORY Neutr Abs (ANC) 5.89 1.70 - [facility] 6.10 [facility] x10(3)/[facility] LABORATORY Lymphocytes % 17.1 % [facility] LABORATORY Lymphocytes Abs 1.5 0.9 - 3.2 [facility] x10(3)/[facility] LABORATORY Monocytes % 13.6 % [facility] LABORATORY Monocyte Abs 1.2 (H) 0.3 - 0.9 [facility] x10(3)/[facility] LABORATORY Eosinophils % 1.0 % [facility] LABORATORY Eosinophils Abs 0.1 0.0 - 0.4 [facility] x10(3)/[facility] LABORATORY Basophils % 0.6 % [facility] LABORATORY Basophils Abs 0.0 0.0 - 0.1 [facility] x10(3)/[facility] LABORATORY Immature Gran % 0.50 % [facility] LABORATORY Comment: Immature granulocytes(IG's)percentage an d absolute count will include metamyelocytes, myelocytes, and promyelo cytes. Blood smears from CBCs yielding IG's will be scanned manually for concor dance. If this scan disagrees with the automated IG or if promyelocytes are not ed, a manual differential will be performed. Rain Gran Abs 0.04 0.00 - 0.04 x10(3)/[facility] LABORATORY Specimen Anatomical Collection Method Collection Time Receive d Time (Source) Location / / Volume Laterality Blood 05/18/2022 3:34 AM 2 3:48 EDT AM EDT Resulting Agency Comment Spec In Lab Edward Rodríguez MD HEMATOLOGY ORDERABLES Performing Organization Address City/State/[place] [address] (ABNORMAL) Hemogram (05/18/2022 3:34 AM EDT) Analysis Performed At Patho logist Time Signature WBC 8.8 4.0 - 9.5 [facility] x10(3)/[facility] LABORATORY RBC 3.45 (L) 4.58 - [facility] 5.54 [facility] x10(6)/[facility] LABORATORY Hemoglobin 11.2 (L) 13.7 - [facility] 16.5 g/dL [facility] LABORATORY Hematocrit 33.0 (L) 40.5 - [facility] 48.5 % [facility] LABORATORY MCV 95.7 (H) 82.9 - [facility] 93.1 [facility] LABORATORY MCH 32.5 (H) 27.5 - [facility] 32.1 pg [facility] LABORATORY MCHC 33.9 32.0 - [facility] 35.7 g/dL [facility] LABORATORY Platelets 130 (L) 145 - 357 [facility] x10(3)/[facility] LABORATORY RDWSD 46.2 (H) 36.0 - [facility] 45.0 [facility] LABORATORY RDWCV 13.2 11.4 - [facility] 13.8 % [facility] LABORATORY MPV 10.8 7.6 - 12.9 [facility] LABORATORY nRBC % Auto 0.0 % [facility] LABORATORY nRBC Abs Auto 0.000 0.000 - [facility] 0.000 [facility] x10(3)/[facility] LABORATORY Specimen Anatomical Collection Method Collection Time Receive d Time (Source) Location / / Volume Laterality Blood 05/18/2022 3:34 AM 2 3:48 EDT AM EDT Resulting Agency Comment Spec In Lab Edward Rodríguez MD HEMATOLOGY ORDERABLES Performing Organization Address City/[facility]/[place] [address] Heparin (unfractionated) Level (05/18/2022 3:34 AM EDT) athologist Signature Heparin UFH 0.59 IU/mL [facility] LABORATORY Comment: Heparin (anti-Xa) levels should [...] Summers MD HEMATOLOGY ORDERABLES Performing Organization Address City/[facility]/Z[place] [address] Magnesium (05/17/2022 3:33 AM EDT) P athologist Signature Magnesium 0.76 0.69 - 1.07 [facility] mmol/L [facility] LABORATORY Specimen Anatomical Collection Method Collection Time Receive d Time (Source) Location / / Volume Laterality Blood Venous Draw / 05/17/2022 3:33 AM 05/17/20 22 4:05 Unknown EDT AM EDT Resulting Agency Comment Spec In Lab Dottie Hill APRN CHEMISTRY ORDERABLES Performing Organization Address City/[facility]/ZIP [place] [address] (ABNORMAL) Basic Metabolic Panel (non-fasting) (05/17/2022 3:33 AM EDT) P athologist Signature Glucose Lvl 158 65 - 199 [facility] mg/dL [facility] LABORATORY Comment: Diabetes: >=200 mg/dL plus symp toms BUN 12 10 - 20 mg/dL [facility] LABORATORY Creatinine 0.74 (L) 0.80 - 1.50 mg/dL [facility] LABORATORY Sodium 137 135 - 145 mmol/L [facility] LABORATORY Potassium 3.5 3.5 - 5.0 mmol/L [facility] LABORATORY Comment: Please note: ??Patients with WBC >100,00 0 may have falsely elevated Potassium levels. ??For accurate Potassium quantif ication in these patients send serum separator tube (gold top) for subsequent determinations. ??Contact the Clinical Chemistry Laboratory if there are any qu estions. Chloride 102 98 - 107 mmol/L [facility] LABORATORY CO2 25 22 - 31 mmol/L [facility] LABORATORY Anion Gap 10 5 - 15 mmol/L [facility] LABORATORY Calcium 8.4 (L) 8.5 - 10.5 mg/dL [facility] LABORATORY Estimated GFR 92 >=60 mL/min/1.73 m?? [facility] LABORATORY Comment: This patient's [...] Resulting Agency Comment Spec In Lab Fito A Columbo MD CHEMISTRY ORDERABLES Performing Organization Address City/State/[place] [address] (ABNORMAL) Differential, Automated (05/17/2022 3:33 AM EDT) [facility] Method Time Signature Neutrophils % 65.5 % [facility] LABORATORY Neutr Abs (ANC) 6.84 (H) 1.70 - [facility] 6.10 [facility] x10(3)/[facility] LABORATORY Lymphocytes % 19.7 % [facility] LABORATORY Lymphocytes Abs 2.1 0.9 - 3.2 [facility] x10(3)/[facility] LABORATORY Monocytes % 13.1 % [facility] LABORATORY Monocyte Abs 1.4 (H) 0.3 - 0.9 [facility] x10(3)/[facility] LABORATORY Eosinophils % 0.6 % [facility] LABORATORY Eosinophils Abs 0.1 0.0 - 0.4 [facility] x10(3)/[facility] LABORATORY Basophils % 0.6 % [facility] LABORATORY Basophils Abs 0.1 0.0 - 0.1 [facility] x10(3)/[facility] LABORATORY Immature Gran % 0.50 % [facility] LABORATORY Comment: Immature granulocytes(IG's)percentage an d absolute count will include metamyelocytes, myelocytes, and promyelo cytes. Blood smears from CBCs yielding IG's will be scanned manually for concor dance. If this scan disagrees with the automated IG or if promyelocytes are not ed, a manual differential will be performed. Rain Gran Abs 0.05 (H) 0.00 - 0.04 x10(3)/[facility] LABORATORY Specimen Anatomical Collection Method Collection Time Receive d Time (Source) Location / / Volume Laterality Blood 05/17/2022 3:33 AM 3:53 EDT AM EDT Resulting Agency Comment Spec In Lab Edward Rodríguez MD HEMATOLOGY ORDERABLES Performing Organization Address City/[facility]/Z[place] [address] (ABNORMAL) Hemogram (05/17/2022 3:33 AM EDT) Analysis Performed At Patho logist Time Signature WBC 10.4 (H) 4.0 - 9.5 [facility] x10(3)/[facility] LABORATORY RBC 3.72 (L) 4.58 - [facility] 5.54 [facility] x10(6)/[facility] LABORATORY Hemoglobin 12.0 (L) 13.7 - [facility] 16.5 g/dL [facility] LABORATORY Hematocrit 36.4 (L) 40.5 - [facility] 48.5 % [facility] LABORATORY MCV 97.8 (H) 82.9 - [facility] 93.1 [facility] LABORATORY MCH 32.3 (H) 27.5 - [facility] 32.1 pg [facility] LABORATORY MCHC 33.0 32.0 - [facility] 35.7 g/dL [facility] LABORATORY Platelets 149 145 - 357 [facility] x10(3)/[facility] LABORATORY RDWSD 48.7 (H) 36.0 - [facility] 45.0 [facility] LABORATORY RDWCV 13.5 11.4 - [facility] 13.8 % [facility] LABORATORY MPV 10.6 7.6 - 12.9 [facility] LABORATORY nRBC % Auto 0.0 % [facility] LABORATORY nRBC Abs Auto 0.000 0.000 - [facility] 0.000 [facility] x10(3)/[facility] LABORATORY Specimen Anatomical Collection Method Collection Time Receive d Time (Source) Location / / Volume Laterality Blood 05/17/2022 3:33 AM 3:53 EDT AM EDT Resulting Agency Comment Spec In Lab Edward Rodríguez MD HEMATOLOGY ORDERABLES Performing Organization Address City/State/Z[place] [address] (ABNORMAL) Urinalysis Microscopic Exam (05/16/2022 11:15 PM EDT) P athologist Signature RBC UA 8 (H) 0 - 3 /HPF [facility] LABORATORY WBC UA 2 0 - 3 /HPF [facility] LABORATORY Specimen Anatomical Collection Method Collection Time Receive d Time (Source) Location / / Volume Laterality Clean Catch 05/16/2022 11:15 05/16/2022 Urine PM EDT 11:30 PM EDT Resulting Agency Comment Spec In Lab Barbie Ashraf MD URINE ORDERABLES Performing Organization Address City/State/[place] [address] (ABNORMAL) Urinalysis with reflex Culture (05/16/2022 11:15 PM EDT) [facility] Method Time Signature Glucose UA Negative Negative [facility] mg/dL [facility] Protein UA Negative Negative [facility] mg/dL [facility] Bilirubin UA Negative Negative [facility] mg/dL [facility] Comment: Clinical correlation required for positi ve Urine Bilirubin results as false positive may occur with some drugs and d rug related products. If a false positive is suspected a serum total bili quarles should be considered if clinically indicated. Urobilinogen UA Normal Normal mg/dL [facility] LABORATORY pH UA 6.0 5.0 - 8.0 [facility] Blood UA Small (A) Negative mg/dL [facility] Ketones UA Trace (A) Negative mg/dL [facility] Nitrite UA Negative Negative [facility] Leukocytes UA Negative Negative [facility] LABORATORY Appearance UA Clear Clear [facility] LABORATORY Spec North Pitcher UA 1.021 1.005 - 1.030 [facility] LABORATORY Color UA Yellow Yellow [facility] Culture Reflexed No [facility] LABOR[facility]ORY Specimen Anatomical Collection Method Collection Time Receive d Time (Source) Location / / Volume Laterality Clean Catch 05/16/2022 11:15 05/16/2022 Urine PM EDT 11:30 PM EDT Resulting Agency Comment Spec In Lab Fito Summers MD URINE ORDERABLES Performing Organization Address City/State/ZIP Code [place] [address] Heparin (unfractionated) Level (05/16/2022 10:59 PM EDT) P athologist Signature Heparin UFH 0.65 IU/mL [facility] LABORATORY Comment: Specimen drawn more than [...] Organization Address City/State/[place] [address] XR Chest One View [...] who have questions please contact the health child care centre director that requested your imaging first. ? Narrative [...] ho have questions please contact the health child care centre director that requested your imaging first. Fito Summers MD IMG DX ORDERABLES EKG 12 Lead (05/16/2022 8:57 PM EDT) Component Value Ref Range Test Analysis Performed Pathologis t Method Time At Signature Ventricular rate 117 BPM MUSE SYSTEM QRS Duration 112 ms MUSE SYSTEM Q-T Interval 346 ms MUSE SYSTEM QTC Calculated 482 ms MUSE SYSTEM (Bezet) Calculated R Joppa -48 degrees MUSE SYSTEM Calculated T Joppa 111 degrees MUSE SYSTEM INTERPRETATION Atrial fibrillation with rapid ventricular response MUSE SYSTEM Left anterior fascicular block Minimal voltage criteria for LVH, may be normal variant ( Paolo product ) Nonspecific ST and T wave [...] athologist Signature Heparin UFH 0.53 IU/mL [facility] LABORATORY Comment: Heparin (anti-Xa) levels should [...] Organization Address City/State/[place] [address] ECHOCARDIOGRAM COMPLETE W CONTRAST (05/16/2022 12:49 PM EDT) athologist Signature EF 28 [facility] Specimen (Source) Anatomical Collection Method Collection Time Re ceived Time Location / / Volume Laterality 05/16/2022 11:22 AM EDT Narrative [facility] - 05/16/2022 1:54 PM EDT ?[facility] ?[address] ? [place] [address] ?Voice: ?Fax: ? Echocardiogram Report Name: KOKO ZAMORA ?Study Date: 05/16/2022 11:22 AM ? Patient Location: 3WST 0303 B : 1940 ? Height: 67.5 in ? Account: [id number] Age: 81 yrs ? Weight: 176 lb Gender: Male ?BSA: 1.9 m2 Ordering Physician: FITO SUMMERS Referring Physician: MALI FLORIAN Performed By: Jolene Bernard RDCS Exam Location: [facility]. Interpretation Summary Left ventricle is mildly [...] and LV systolic dysfunction are new. Procedure Complete-[id number]. Image enhancement Optiso n was used for [...] diffuse Procedure Note Gladys Jaime MD - 05/16/2022Formlexii jasmine of this note might be different from the original. [facility] [address] [place] [address] Voice: Fax: Echocardiogram Report Name: NIURKA KOKO Sullivan Study Date: 05/2022 11:22 AM Patient Location: [address] [place] [address] : 1940 Height: 67.5 in Account: [id number] Age: 81 yrs Weight: 176 lb Gender: Male BSA: 1.9 m2 Ordering Physician: FITO SUMMERS Referring Physician: MALI FLORIAN Performed By: Jolene Bernard RDCS Exam Location: [facility]. Interpretation Summary Left ventricle is mildly [...] and LV systolic dysfunction are new. Procedure Complete-[id number]. Image enhancement Optiso n was used for [...] (ABNORMAL) Differential, Automated (05/16/2022 3:01 AM EDT) [facility] gist Method Time Signature Neutrophils % 78.8 % [facility] LABORATORY Neutr Abs (ANC) 9.11 (H) 1.70 - [facility] 6.10 [facility] x10(3)/[facility] L LABORATORY Lymphocytes % 9.4 % [facility] LABORATORY Lymphocytes Abs 1.1 0.9 - 3.2 [facility] x10(3)/[facility] LABORATORY Monocytes % 10.9 % [facility] LABORATORY Monocyte Abs 1.3 (H) 0.3 - 0.9 [facility] x10(3)/[facility] LABORATORY Eosinophils % 0.0 % [facility] LABORATORY Eosinophils Abs 0.0 0.0 - 0.4 [facility] x10(3)/[facility] LABORATORY Basophils % 0.3 % [facility] LABORATORY Basophils Abs 0.0 0.0 - 0.1 [facility] x10(3)/[facility] LABORATORY Immature Gran % 0.60 % [facility] LABORATORY Comment: Immature granulocytes(IG's)percentage an d absolute count will include metamyelocytes, myelocytes, and promyelo cytes. Blood smears from CBCs yielding IG's will be scanned manually for concor dance. If this scan disagrees with the automated IG or if promyelocytes are not ed, a manual differential will be performed. Rain Gran Abs 0.07 (H) 0.00 - 0.04 x10(3)/[facility] LABORATORY Specimen Anatomical Collection Method Collection Time Receive d Time (Source) Location / / Volume Laterality Blood 05/16/2022 3:01 AM 3:36 EDT AM EDT Resulting Agency Comment Spec In Lab Erin Garza MD HEMATOLOGY ORDERABLES Performing Organization Address City/State/Z[place] [address] (ABNORMAL) Hemogram (05/16/2022 3:01 AM EDT) Analysis Performed At Patho logist Time Signature WBC 11.6 (H) 4.0 - 9.5 [facility] x10(3)/[facility] LABORATORY RBC 3.62 (L) 4.58 - [facility] 5.54 [facility] x10(6)/[facility] LABORATORY Hemoglobin 12.0 (L) 13.7 - [facility] 16.5 g/dL [facility] Hematocrit 35.3 (L) 40.5 - [facility] 48.5 % [facility] LABORATORY MCV 97.5 (H) 82.9 - [facility] 93.1 [facility] LABORATORY MCH 33.1 (H) 27.5 - [facility] 32.1 pg [facility] LABORATORY MCHC 34.0 32.0 - [facility] 35.7 g/dL [facility] LABOR[facility]ORY Platelets 151 145 - 357 [facility] x10(3)/[facility] LABORATORY RDWSD 47.6 (H) 36.0 - [facility] 45.0 [facility] LABORATORY RDWCV 13.3 11.4 - [facility] FAYE 13.8 % [facility] LABORATORY MPV 10.5 7.6 - 12.9 [facility] nRBC % Auto 0.0 % [facility] LABORATORY nRBC Abs Auto 0.000 0.000 - [facility] FYAE 0.000 [facility] x10(3)/[facility] LABORATORY Specimen Anatomical Collection Method Collection Time Receive d Time (Source) Location / / Volume Laterality Blood 05/16/2022 3:01 AM 2 3:36 EDT AM EDT Resulting Agency Comment Spec In Lab Erin Garza MD HEMATOLOGY ORDERABLES Performing Organization Address City/State/ZIP Code Phon e Number [address] Phosphorus (05/16/2022 3:01 AM EDT) P athologist Signature Phosphorus 3.7 2.5 - 4.5 [facility] mg/dL [facility] LABORATORY Specimen Anatomical Collection Method Collection Time Receive d Time (Source) Location / / Volume Laterality Blood 05/16/2022 3:01 AM 2 3:36 EDT AM EDT Resulting Agency Comment Spec In Lab Fito Summers MD CHEMISTRY ORDERABLES Performing Organization Address City/State/ZIP Code Phon e Number [address] Magnesium (05/16/2022 3:01 AM EDT) P athologist Signature Magnesium 0.77 0.69 - 1.07 [facility] mmol/L [facility] LABORATORY Specimen Anatomical Collection Method Collection Time Receive d Time (Source) Location / / Volume Laterality Blood 05/16/2022 3:01 AM 2 3:36 EDT AM EDT Resulting Agency Comment Spec In Lab Fito Summers MD CHEMISTRY ORDERABLES Performing Organization Address City/State/[place] [address] (ABNORMAL) Basic Metabolic Panel (non-fasting) (05/16/2022 3:01 AM EDT) P athologist Signature Glucose Lvl 222 (H) 65 - 199 [facility] mg/dL [facility] LABOR[facility]ORY Comment: Diabetes: >=200 mg/dL plus symp toms BUN 12 10 - 20 mg/dL [facility] LABORATORY Creatinine 0.66 (L) 0.80 - 1.50 mg/dL [facility] LABORATORY Sodium 138 135 - 145 mmol/L [facility] LABORATORY Potassium 4.5 3.5 - 5.0 mmol/L [facility] LABORATORY Comment: Please note: ??Patients with WBC >100,00 0 may have falsely elevated Potassium levels. ??For accurate Potassium quantif ication in these patients send serum separator tube (gold top) for subsequent determinations. ??Contact the Clinical Chemistry Laboratory if there are any qu estions. Chloride 108 (H) 98 - 107 mmol/L [facility] LABORATORY CO2 22 22 - 31 mmol/L [facility]ORATORY Anion Gap 8 5 - 15 mmol/L [facility] LABORATORY Calcium 8.2 (L) 8.5 - 10.5 mg/dL [facility] LABORATORY Estimated GFR 95 >=60 mL/min/1.73 m?? [facility] LABORATORY Comment: This patient's [...] Organization Address City/State/[place] [address] (ABNORMAL) BLOOD GAS 2 ARTERIAL (05/15/2022 3:33 PM EDT) Analysis Performed At Patho logist Time Signature pH Art 7.33 (L) 7.35 - [facility] 7.45 [facility] LABORATORY pCO2 Art 41 35 - 45 [facility] LABORATORY pO2 Art 131 (H) 85 - 104 [facility] LABORATORY HCO3 Art 21.1 20.0 - [facility] 26.0 [facility] mmol/[facility] LABORATORY BE Art -4.8 (L) -3.0 - 3.0 [facility] mmol/L [facility] LABORATORY Hgb Blood Gas 13.4 (L) 13.7 - [facility] 16.5 g/dL [facility] LABORATORY O2HB Art 96.9 94.0 - [facility] 97.0 % [facility] LABORATORY COHB Art 1.4 % [facility] LABORATORY Comment: Nonsmokers: 0.5-1.5% COHB Smokers: Variable, but usually less than 10% Toxic: 20-30% COHB Lethal: Greater than 60% COHB METHB Art 0.3 <=1.5 % [facility] LABORATORY Na Whole Blood 139 135 - 145 mmol/L [facility]ORATORY K Whole Blood 3.8 3.5 - 5.0 mmol/L [facility] LABORATORY Comment: Please note: Patients with WBC >100,000 may have falsely elevated Potassium levels. Contact the Clinical Chemistry L aboratory if there are any questions. ICa Whole Blood 1.32 1.15 - 1.33 mmol/L [facility] LABORATORY Comment: Note: ??Total bilirubin higher than 20 m g/dL may lead to falsely low ionized calcium. CL Whole Blood 113 (H) 98 - 107 mmol/L [facility] LABORATORY Gluc Whole Bld 136 65 - 199 mg/dL [facility] LABORATORY Comment: Diabetes: >=200 mg/dL plus symp toms. Lactate WB 2.0 0.5 - 2.2 mmol/L [facility] LABORATORY Specimen Anatomical Collection Method Collection Time Receive d Time (Source) Location / / Volume Laterality Blood 05/15/2022 3:33 PM 3:[address] Jamel Torre MD CHEMISTRY ORDERABLES Performing Organization Address City/State/[place] [address] (ABNORMAL) BLOOD GAS 2 ARTERIAL (05/15/2022 2:06 PM EDT) Analysis Performed At Patho logist Time Signature pH Art 7.39 7.35 - [facility] 7.45 [facility] LABORATORY pCO2 Art 35 35 - 45 [facility] LABORATORY pO2 Art 135 (H) 85 - 104 [facility] LABORATORY HCO3 Art 20.8 20.0 - [facility] 26.0 [facility] mmol/L [facility] LABORATORY BE Art -4.2 (L) -3.0 - 3.0 [facility] mmol/L [facility] LABORATORY Hgb Blood Gas 14.5 13.7 - [facility] 16.5 g/dL [facility] O2HB Art 97.2 (H) 94.0 - [facility] 97.0 % [facility] LABORATORY COHB Art 1.2 % [facility] LABORATORY Comment: Nonsmokers: 0.5-1.5% COHB Smokers: Variable, but usually less than 10% Toxic: 20-30% COHB Lethal: Greater than 60% COHB METHB Art 0.3 <=1.5 % [facility] LABORATORY Na Whole Blood 140 135 - 145 mmol/L [facility]ORAT[facility] K Whole Blood 3.8 3.5 - 5.0 mmol/L [facility] LABORATORY Comment: Please note: Patients with WBC >100,000 may have falsely elevated Potassium levels. Contact the Clinical Chemistry L aboratory if there are any questions. ICa Whole Blood 1.12 (L) 1.15 - 1.33 mmol/L [facility] LABORATORY Comment: Note: ??Total bilirubin higher than 20 m g/dL may lead to falsely low ionized calcium. CL Whole Blood 109 (H) 98 - 107 mmol/L [facility] LABORATORY Gluc Whole Bld 152 65 - 199 mg/dL [facility] LABORATORY Comment: Diabetes: >=200 mg/dL plus symp toms. Lactate WB 1.5 0.5 - 2.2 mmol/L [facility] LABORATORY Specimen Anatomical Collection Method Collection Time Receive d Time (Source) Location / / Volume Laterality Blood 05/15/2022 2:06 PM 2:[address] Jamel Torre MD CHEMISTRY ORDERABLES Performing Organization Address City/[facility]/[place] [address] (ABNORMAL) Prothrombin Time (05/15/2022 12:30 PM EDT) athologist Signature PT 12.9 (H) 9.4 - 12.5 [facility] LABORATORY INR 1.1 [facility] LABORATORY Comment: An INR [...] Morales DO HEMATOLOGY ORDERABLES Performing Organization Address City/[facility]/ZIP [place] [address] (ABNORMAL) APTT (05/15/2022 12:30 PM EDT) P athologist Signature PTT 76 (H) 25 - 37 sec [facility] LABORATORY Comment: The PTT [...] Resulting Agency Comment Spec In Lab Jhonny Daquan Claudiocy HEMATOLOGY ORDERABLES Performing Organization Address City/[facility]/ZIP Code Phon e Number [address] Gold Tube HOLD (05/15/2022 12:20 PM EDT) athologist Signature Gold Hold Sample in [facility]. [facility] LABORATORY Specimen Anatomical Collection Method Collection Time Receive d Time (Source) Location / / Volume Laterality Blood No Charge / 05/15/2022 12:20 05/15/2022 Unknown PM EDT 12:20 PM EDT Lc TRIPP CHEMISTRY ORDERABLES Performing Organization Address City/[facility]/ZIP [place] [address] Type and Screen Validity (05/15/2022 12:00 PM EDT) [facility] Method Time Signature T&S only valid [facility] at [facility] LAB[facility]ORY Comment: This Type and Screen result is only valid at the [facility] Hospital Specimen Anatomical Collection Method Collection Time Receive d Time (Source) Location / / Volume Laterality Blood 05/15/2022 12:00 05/15/2022 PM EDT 12:17 PM EDT Resulting Agency Comment Spec In Lab Lc TRIPP BLOOD BANK ORDERABLES Performing Organization Address City/[facility]/ZIP Code Phon e Number [address] ABORH Recheck Status (05/15/2022 12:00 PM EDT) [facility] Method Time Signature ABORH Recheck Order Placed [facility] K Order [facility] LABORATORY ABORH Type Complete [facility] LABORATORY Specimen Anatomical Collection Method Collection Time Receive d Time (Source) Location / / Volume Laterality Blood 05/15/2022 12:00 05/15/2022 PM EDT 12:17 PM EDT Resulting Agency Comment Spec In Lab Lc Dominick Kimberly PA BLOOD BANK ORDERABLES Performing Organization Address City/State/ZIP [place] [address] CK (05/15/2022 12:00 PM EDT) P athologist Signature CK, Total 87 0 - 200 [facility] unit/L [facility] LABORATORY Specimen Anatomical Collection Method Collection Time Receive d Time (Source) Location / / Volume Laterality Blood Venous Draw / 05/15/2022 12:00 05/15/2022 Unknown PM EDT 12:19 PM EDT Resulting Agency Comment Spec In Lab Fito Summers MD CHEMISTRY ORDERABLES Performing Organization Address City/State/ZIP Code Phon e Number [address] Antibody screen (05/15/2022 12:00 PM EDT) [facility] gist Method Time Signature Ab Screen [facility] LABORATORY Expires at 05/18/2022 [facility] on: [facility] LABORATORY Specimen Anatomical Collection Method Collection Time Receive d Time (Source) Location / / Volume Laterality Blood 05/15/2022 12:00 05/15/2022 PM EDT 12:17 PM EDT Resulting Agency Comment Spec In Lab Lc Harris PA BLOOD BANK ORDERABLES Performing Organization Address City/State/ZIP Code Phon e Number [address] ABO/Rh Typing (05/15/2022 12:00 PM EDT) P athologist Signature ABORh Type O Pos [facility] LABORATORY Specimen Anatomical Collection Method Collection Time Receive d Time (Source) Location / / Volume Laterality Blood 05/15/2022 12:00 05/15/2022 PM EDT 12:17 PM EDT Resulting Agency Comment Spec In Lab Lc TRIPP BLOOD BANK ORDERABLES Performing Organization Address City/State/[place] [address] (ABNORMAL) Differential, Automated (05/15/2022 12:00 PM EDT) [facility] Method Time Signature Neutrophils % 79.4 % [facility] LABORATORY Neutr Abs (ANC) 7.49 (H) 1.70 - [facility] 6.10 [facility] x10(3)/[facility] LABORATORY Lymphocytes % 11.3 % [facility] LABORATORY Lymphocytes Abs 1.1 0.9 - 3.2 [facility] x10(3)/[facility] LABORATORY Monocytes % 7.8 % [facility] LABORATORY Monocyte Abs 0.7 0.3 - 0.9 [facility] x10(3)/[facility] LABORATORY Eosinophils % 0.6 % [facility] LABORATORY Eosinophils Abs 0.1 0.0 - 0.4 [facility] x10(3)/[facility] LABORATORY Basophils % 0.6 % [facility] LABORATORY Basophils Abs 0.1 0.0 - 0.1 [facility] x10(3)/[facility] LABORATORY Immature Gran % 0.30 % [facility] LABORATORY Comment: Immature granulocytes(IG's)percentage an d absolute count will include metamyelocytes, myelocytes, and promyelo cytes. Blood smears from CBCs yielding IG's will be scanned manually for concor dance. If this scan disagrees with the automated IG or if promyelocytes are not ed, a manual differential will be performed. Rain Gran Abs 0.03 0.00 - 0.04 x10(3)/[facility] LABORATORY Specimen Anatomical Collection Method Collection Time Receive d Time (Source) Location / / Volume Laterality Blood 05/15/2022 12:00 05/15/2022 PM EDT 12:19 PM EDT Resulting Agency Comment Spec In Lab Lc TRIPP HEMATOLOGY ORDERABLES Performing Organization Address City/State/[place] [address] (ABNORMAL) Hemogram (05/15/2022 12:00 PM EDT) Analysis Performed At Patho logist Time Signature WBC 9.4 4.0 - 9.5 [facility] x10(3)/[facility] LABORATORY RBC 4.48 (L) 4.58 - [facility] FAYE 5.54 [facility] x10(6)/[facility] LABORATORY Hemoglobin 14.5 13.7 - [facility] 16.5 g/dL [facility] LABORATORY Hematocrit 42.4 40.5 - [facility] 48.5 % [facility] LABORATORY MCV 94.6 (H) 82.9 - [facility] 93.1 [facility] LABORATORY MCH 32.4 (H) 27.5 - [facility] 32.1 pg [facility] LABORATORY MCHC 34.2 32.0 - [facility] 35.7 g/dL [facility] LABORATORY Platelets 209 145 - 357 [facility] x10(3)/[facility] LABORATORY RDWSD 45.9 (H) 36.0 - [facility] 45.0 [facility] LABORATORY RDWCV 13.1 11.4 - [facility] 13.8 % [facility] LABORATORY MPV 10.5 7.6 - 12.9 [facility] LABORATORY nRBC % Auto 0.0 % [facility] LABORATORY nRBC Abs Auto 0.000 0.000 - [facility] 0.000 [facility] x10(3)/[facility] LABORATORY Specimen Anatomical Collection Method Collection Time Receive d Time (Source) Location / / Volume Laterality Blood 05/15/2022 12:00 05/15/2022 PM EDT 12:19 PM EDT Resulting Agency Comment Spec In Lab Lc TRIPP HEMATOLOGY ORDERABLES Performing Organization Address City/State/Z[place] [address] (ABNORMAL) Basic Metabolic Panel (non-fasting) (05/15/2022 12:00 PM EDT) P athologist Signature Glucose Lvl 203 (H) 65 - 199 [facility] mg/dL [facility] LAB[facility]ORY Comment: Diabetes: >=200 mg/dL plus symp toms BUN 16 10 - 20 mg/dL [facility] LABORATORY Creatinine 0.84 0.80 - 1.50 mg/dL [facility] LABORATORY Sodium 141 135 - 145 mmol/L [facility] LABORATORY Potassium 4.7 3.5 - 5.0 mmol/L [facility] LABORATORY Comment: Please note: ??Patients with WBC >100,00 0 may have falsely elevated Potassium levels. ??For accurate Potassium quantif ication in these patients send serum separator tube (gold top) for subsequent determinations. ??Contact the Clinical Chemistry Laboratory if there are any qu estions. Chloride 107 98 - 107 mmol/L [facility] LABORATORY CO2 23 22 - 31 mmol/L [facility]ORATORY Anion Gap 11 5 - 15 mmol/L [facility] LABORATORY Calcium 8.5 8.5 - 10.5 mg/dL [facility] LABORATORY Estimated GFR 89 >=60 mL/min/1.73 m?? [facility] LABORATORY Comment: This patient's [...] Organization Address City/State/[place] [address] documented in this encounter [...] Given 05/19/2022 8:38 AM EDT 1,000 mcg gelatin adsorbable 100 Given 05/15/2022 2:28 PM EDT 1 each 19- Surgical Site (Gelfoam) sponge ONCE PRN, Starting on Fri05/15/22 at 1428, Until Fri05/21/22 at 1743, Intra-Operative (Intra-Procedure), Routine ipratropium-albuteroL (Duoneb) 0.5 mg-3 mg(2.5 [...] Given 05/19/2022 8:38 AM EDT 100 mg thrombin (Bovine) Given 05/15/2022 2:28 PM 20,000 Units 19- Surgical Site (Thrombinar) kit EDT ONCE PRN, Starting on Fri05/15/22 at 1428, Until Fri05/21/22 at 1743, Intra-Operative (Intra-Procedure) valsartan (Diovan) tablet 40 mg Given 05/21/2022 [...] mg 0816 (Gi naveen - Provider: Etta Don RN) 81 mg, Oral, DAILY, First dose on 10/31 at 0900, Until Discontinued, Recovery (Recovery-Hospital Unit), Routine clopidogreL (Plavix) tablet 75 mg 0816 (Given - Provider: Etta Don, RN) 75 mg, Oral, DAILY, First dose on 10/31 at 0900, Until Discontinued, Recovery (Recovery-Hospital Unit), Routine folic acid (Folvite) tablet 1,000 mcg 0838 (Given - Pr ovider: Caroline Zamora RN) 0852 (Given - Provider: Barbie Joyce , DION)1750 (JAN Hold - Provider: Admin Adt - Reason: Transfer to a Procedural area)1955 (MAR Unhold - Provider: Admin Adt) 15 (Given - Provider: Etta contreras RN) 1,000 mcg, Oral, DAILY, First dose on 05/16/22 at 0900, Until Discontinued, Routine metoprolol tartrate (Lopressor) tablet 12.5 mg (CANCEL ED) 0838 (Given - Provider: Caroline Zamora RN)2008 (Given - Provider: Nuris Lester RN) 0853 (Given - Provider: Barbie Joyce , DION)1750 (MAR Hold - Provider: Admin Adt - Reason: Transfer to a Procedural area)1955 (MAR Unhold - Provider: Admin Adt)2004 (Given - Provider: Tere Blankenship, DION) 0817 (Given - Provider: Etta Don, DION) [...] 0852 (Given - Provider: Barbie Joyce RN)1750 (MAR [...] g 0838 (Given - Provider: Caroline Zamora RN)2100 (Not Given - Provider: Nuris Lester RN - Reason: Patient/family refused) 09 (Not Given - Provider: Barbie joseph RN - Reason: NPO)1750 (JAN Hold - Provider: Admin Adt - Reason: Transfer to a Procedural area)1955 (JAN Unhold - Provider: Admin Adt)2131 (Given - Provider: Tere Blankenship RN) 0815 (Given - Provider: Etta contreras RN) 17 g, Oral, 2 TIMES DAILY, First dose on Fri05/16/22 at 2100, Until Discontinued, Routine rivaroxaban (Xarelto) tablet 20 mg 1408 (Given - Provider: Etta oDn RN) 20 mg, Oral, DAILY, First dose [...] PIV infusing)2099 (Not Given - Provider: Tere Blankenship, DION - Reason: Order parameters not met - Comment: infusing) 0819 (Given - Provider: Etta contreras, DION) 5 mL, Intravenous, 2 TIMES DAILY, First dose on Fri05/15/22 at 2245, Until Discontinued, Recovery (Recovery-Hospital Unit), Routine tamsulosin (Flomax) capsule 0.4 mg 0838 (Given - Provi bre: Caroline Zamora RN) 0853 (Given - Provider: Barbie Joyce RN)1750 (JAN Hold - Provider: Admin Adt - Reason: Transfer to a Procedural area)1955 (JAN Unhold - Provider: Admin Adt) 08 (Given - Provider: Etta contreras RN) 0.4 [...] Caroline Zamora, DION)2008 (Given - Provider: Nuris Lester, DION) 0853 (Given - Provider: Barbie Joyce RN)1750 (JAN Hold - Provider: Admin Adt - Reason: Transfer to a Procedural area)1955 (JAN Unhold - Provider: Admin Adt)2005 (Given - Provider: Tere Blankenship, DION) 0816 (Given - Provider: Etta contreras RN) 40 mg, Oral, 2 TIMES DAILY, First dose o n 05/18/22 at 2100, Until Discontinued, Routine Continuous Medication Order 05/19/2022 05/20/2022 05/21/2022 heparin (porcine) 50 units/mL in sodium chloride 0.45% 500 mL infusion 193 (New Bag - Provider: Nuris Lester, DION) 1600 (New Bag - Provider: Barbie Joyce, DION)175 (JAN Hold - Provider: Admin Adt - Reason: Transfer to a Procedural area)1955 (JAN Unhold - Provider: Admin Adt) 021 (Restarted - Provider: Tere Blankenship, RN - Comment: 4 hours since tr band off, per MD ashraf)1301 (Rate/Dose Verify - Provider: Etta Don RN)1743 (Due: Stopped) 0-5,000 Units/hr (0-100 mL/hr), Intraven ous, CONTINUOUS, Starting on Brandi 05/16/22 at 0845, Until 05/21/22 at 1523, Begin infusion at 1,200 units per hr (15 units/kg/hr). Maximum initial infusion rate i 2000 (No t Given - Provider: Tere Blankenship, DION - Reason: Contraindicated - Comment: TR band [...] Protocol, Routine sodium chloride 0.9% infusion () 1899 (Continued Bag - Provider: Cassy Schultz, RN)2199 (Stopped - Provider: Tere Blankenship RN) 150 [...] - Reason: Transfer to a Procedural area)1955 ([facility] Unhold - Provider: Admin [...] (porcine) (1,000 units/mL) injection 0-8,000 Units 1750 (JAN Hold - Provider: Admin Adt - Reason: Transfer to a Procedural area)1955 ([facility] Unhold - Provider: Admin Adt) 0-8,000 Units, Intravenous, BOLUS PER [facility] PROTOCOL, Starting on Brandi 05/16/22 at 0758, [...] Routine heparin (porcine) (1,000 units/mL) injection (CANCELED) 1725 (Given - Provider: Flavia Schuler RN)174 (Given - Provider: Negra Bailey RN) ONCE PRN, Starting on Fri05/20/22 at 172 6, Until Fri05/20/22 at 1842, Cath (Intra-Procedure), Routine iohexoL (Omnipaque) (350 mg/mL) solution (CANCELED) 1840 (Given - Provider: Abundio Servin MD) ONCE PRN, Starting on Fri05/20/22 at 184 1, Until Fri05/20/22 at 1842, Cath (Intra-Procedure), Routine ipratropium-albuteroL (Duoneb) 0.5 mg-3 mg(2.5 mg base)/3 mL nebulizer solution 3 mL 1750 (JAN Hold - Provider: Dominick armando Adt - Reason: Transfer to a Procedural area)1955 ([facility] Unhold - Provider: Admin Adt) 3 mL, [...] - Pr ovider: Emily Sauceda RN) 1750 ([facility] Hold - Provider: Admin Adt - R lexie: Transfer to a Procedural area)1955 ([facility] Unhold - Provider: Admin Adt) 5 mg, Intravenous, EVERY 5 MIN PRN, Star ting on Fri05/19/22 at 0506, Until Fri05/21/22 at 1743, Elevated Heart Rate, up to 3 doses for HR >110 midazolam (pf) (Versed) (1 mg/mL) multi-dose injection ([facility] EL[facility]) 1713 (Given - Provider: Abundio Servin [...] - Reason: Transfer to a Procedural area)1955 ([facility] Unhold - Provider: Admin Adt) 10-15 mg, Oral, EVERY 4 HOURS PRN, Start ing on Fri05/17/22 at 0655, Until Fri05/21/22 at 1743, Pain, severe pain (7-10), Initial dose 10mg. If pain control not adequate in 60 minutes, give additional 5mg, Routine oxyCODONE (Roxicodone) tablet 5-10 mg(Linked Group 2) 1750 (JAN Hold - Provider: Admin Adt - Reason: Transfer to a Procedural area)1955 ([facility] Unhold - Provider: Admin Adt) 5-10 mg, [...]
Routine documented in this encounter Care Teams Kiln Tester Relationship Specialty Start Date End Date Bobby Das MD PCP - General 10/02/[address] [place] [address] [place] [address] documented as of this encounter
--- OUTSIDE RECORDS SUMMARY | 2022-06-23 00:19 | XMS_ITS | Encounter Summary ---
:1940 Author Organization [place] [address] Care Team Providers Name Role Phone Bobby Das MD Primary Care Provider Encounter Details Date Type Department Care Team Description 06/16/2019 Ancillary Procedure Radiology Library at Bobby Almaguer MD [facility] [address] [place] [id number] (Wo rk) Social History Tobacco Use Types Packs/Day Years Used Date Current Some Day Smoker 1 50 Smokeless Tobacco: Never Used Sex Assigned at Date Recorded Not on file documented as of this encounter Plan of Treatment Upcoming Encounters Date Type Specialty Care Team Description 07/02/2022 Office Visit Vascular Surgery Jing Ghosh APRN [facility] DR VASCULAR SURGERY [place], [place] [address] (Wo rk) 09/02/2022 Clinical Support Dermatology Thai Lynn MD [facility] ER [address] [place] [address], [place] [address] (Wo rk) 09/02/2022 Procedure visit Dermatology Jace Lynn MD [facility] [address], [place] [address] (Wo rk) 09/05/2022 Appointment Cardiology Trinity Reid MD [facility] ER CARDIOLOGY [place], [place] [address] (Wo rk) 09/05/2022 Office Visit Cardiology Trinity Reid MD [facility] ER CARDIOLOGY [place], [place] [address] (Wo rk) documented as of this encounter Procedures Procedure Name Priority Date/Time Associated Diagnosis Comme nts FILM LIBRARY Routine 06/16/2019 12:00 AM Results for this STORAGE ONLY MR EDT procedure ar e in SPINE the results section. documented in this encounter Results Film Library- Storage Only MR Spine (06/16/2019 12:00 AM EDT) Specimen (Source) Anatomical Location Collection Method / Collectio n Time Received Time / Laterality Volume Narrative RAD - 06/29/2019 9:48 PM EDT This exam is auto-finalizing. It's purpo se is for storage only. Bobby Das MD IMG FILM LIBRARY ORDERABLES Performing Organization Address City/State/ZIP Code Phon e Number [place], [place] documented in this encounter Visit Diagnoses Not on filedocumented in this encounter Care Teams Entry Level Account Manager Relationship Specialty Start Date End Date Bobby Das MD PCP - General 10/02/[address] [place] [address] [place] [id number] documented as of this encounter
--- OUTSIDE RECORDS SUMMARY | 2022-06-23 00:19 | XMS_ITS | Encounter Summary ---
:1940 Author Organization [place] [address] Care Team Providers Name Role Phone Bobby Das MD Primary Care Provider Encounter Details Date Type Department Care Team Description 07/13/2019 Orders Only Radiology Alan Brink Gastrointestinal [facility] MD Rosa hemorrhage, unspecified [facility] DR hemorrhage type (Primary [id number] RADIOLOGY DEPT Dx) [phone] [place], [place] [address] Social History Tobacco Use Types Packs/Day Years Used Date Current Some Day Smoker Cigarettes 1 50 Smokeless Tobacco: Never Used Sex Assigned at Date Recorded Not on file documented as of this encounter Progress Notes Alan Brink - 07/13/2019 5:00 PM EDT Images from the original note were not included. INTERVENTIONAL NEURORADIOLOGY FOCUSED H&P and PRE-PROCEDURE NOTE: PCP: Bobby Das MD Referring Provider: Zbigniew Thompson (Spine center) Planned Procedure: L1 vertebroplasty with bone biopsy Procedure Indication: Lumbar pain after trauma There are no answered order specific questions. Presenting Diagnosis/ Complaint: Koko Zamora is a 78 y.o. male with history of prostate cancerwho sustained a L1 compression fracture after trauma. Per report, the patient's pain has not responded well to medical therapy. Neuroradiology is consulted for vertebroplasty and bone biopsy. Past Medical/Surgical History: Patient Active Problem List Diagnosis Code ??? GIB (gastrointestinal bleeding) K92.2 ??? MVP (mitral valve prolapse) s/p repair I34.1 ??? Hypertriglyceridemia E78.1 ??? Adhesive capsulitis of L shoulder M75.00 ??? Alcohol use Z78.9 ??? Basal cell carcinoma C44.91 ??? Verruca vulgaris B07.8 ??? AK (actinic keratosis) L57.0 ??? History of basal cell carcinoma Z85.828 No past medical history on file. No past surgical history on file. Medications: Current Outpatient Medications on File Prior to [...] ORAL) Take 1 tablet by mouth daily. No current facility-administered medications on file prior to visit. Allergies: Aspirin Social History and Habits: Social History Socioeconomic History ??? Marital status: Spouse name: Not on file ??? Number of children: Not on file ??? Years of education: Not on file ??? Highest education level: Not on file Occupational History ??? Not on file Social Needs ??? Financial resource strain: Not on file ??? Food insecurity: Worry: Not on file Inability: Not on file ??? Transportation needs: Medical: Not on file Non-medical: Not on file Tobacco Use ??? Smoking status: Current Some Day Smoker Packs/day: 1.00 Years: 50.00 Pack years: 50.00 Types: Cigarettes ??? Smokeless tobacco: Never Used Substance and Sexual Activity ??? Alcohol use: Not on file ??? Drug use: Not on file ??? Sexual activity: Not on file Lifestyle ??? Physical activity: Days per week: Not on file Minutes per session: Not on file ??? Stress: Not on file Relationships ??? Social connections: Talks on phone: Not on file Gets together: Not on file Attends gnosticist service: Not on file Active member of club or organization: Not on file Attends meetings of clubs or organizations: Not on file Relationship status: Not on file ??? Intimate partner violence: Fear of current or ex partner: Not on file Emotionally abused: Not on file Physically abused: Not on file Forced sexual activity: Not on file Other Topics Concern ??? Not on file Social History Narrative ??? Not on file Significant Family History: No family history on file. Pertinent ROS: as per HPI Labs: Imaging: Physical Exam: Pending (to be performed in angio the day of procedure) ASA: Pending (to be assessed in angio the day of procedure) Mallampati Class: Pending (to be assessed in angio the day of procedure) Assessment: Koko Zamora is a 78 y.o. male with history of prostate cancer who sustained a L1 compression fracture after trauma. Per report, the patient's pain has not responded well to medical therapy. Neuroradiology is consulted for vertebroplasty and bone biopsy. Case discussed with Dr. Marshall Plan: Position: Prone Sedation: Moderate Medications to hold: None Labs to order: PLT and INR Medications for procedure: Lidocaine. Bone cement per protocol Pathology present: No Consent: To be obtained day of procedure Alan Brink MD Neuroradiology fellow 07/13/2019 documented in this encounter Plan of Treatment Upcoming Encounters Date Type Specialty Care Team Description 07/02/2022 Office Visit Vascular Surgery Jing Ghosh, WEB DEVELOPER PROGRAMMER [facility] VASCULAR SURGERY [place], [place] [address] (Wo bob) 09/02/2022 Clinical Support Dermatology Thai Lynn MD [facility] DR JENNY [address] [place], [place] [address] (Wo bob) 09/02/2022 Procedure visit Dermatology Jace Lynn MD [facility] DR JENNY [address]ILL[address] [place], [place] [address] (Wo rk) 09/05/2022 Appointment Cardiology Trinity Reid MD [facility] ER [place], [place] [address] (Wo rk) 09/05/2022 Office Visit Cardiology Trinity Reid MD [facility] ER CARDIOLOGY [place], [place] [address] (Wo rk) documented as of this encounter Results Prothrombin Time (07/20/2019 8:18 AM EDT) P athologist Signature PT 11.3 9.4 - 12.5 [facility] LABORATORY INR 1.0 [facility] LABORATORY Comment: An INR <2.0 indicates [...] Marshall MD HEMATOLOGY ORDERABLES Performing Organization Address City/State/[place] [address] (ABNORMAL) Hemogram (07/20/2019 8:18 AM EDT) Analysis Performed At Patho logist Time Signature WBC 6.0 4.0 - 9.5 [facility] x10(3)/[facility] LABORATORY RBC 4.50 (L) 4.58 - [facility] 5.54 [facility] x10(6)/[facility] LABORATORY Hemoglobin 14.8 13.7 - [facility] 16.5 gm/dL [facility] LABORATORY Hematocrit 43.9 40.5 - [facility] [place] 48.5 % [facility] LABORATORY MCV 97.6 (H) 82.9 - [place] [place] 93.1 [facility] LABORATORY MCH 32.9 (H) 27.5 - [place] [place] 32.1 pg [facility] LABORATORY MCHC 33.7 32.0 - [facility] [place] 35.7 gm/dL [facility] LABORATORY Platelets 164 145 - 357 [facility] [place] x10(3)/[facility] LABORATORY RDWSD 49.3 (H) 36.0 - [place] [place] 45.0 [facility] LABORATORY RDWCV 13.6 11.4 - [place] [place] 13.8 % [facility] LABORATORY MPV 10.0 7.6 - 12.9 [facility] LABORATORY nRBC % Auto 0.0 % [facility] LABORATORY nRBC Abs Auto 0.000 0.000 - [place] [place] 0.000 [facility] x10(3)/[facility] LABORATORY Specimen Anatomical Collection Method Collection Time Receive d Time (Source) Location / / Volume Laterality Blood specimen 07/20/2019 8:18 AM 019 8:21 (specimen) EDT AM EDT Resulting Agency Comment Spec In Lab Bobby Marshall MD HEMATOLOGY ORDERABLES Performing Organization Address City/State/ZIP Code Phon e Number [place] [phone]OS[address] LAB[address] documented in this encounter Visit Diagnoses Diagnosis Gastrointestinal hemorrhage, unspecified gastrointestinal hemorrhage type - Primary documented in this encounter Care Teams Rivet Maker Relationship Specialty Start Date End Date Bobby Das MD PCP - General 10/02/[address] [place] [address] [place] [id number] documented as of this encounter
--- OUTSIDE RECORDS SUMMARY | 2022-06-23 00:19 | XMS_ITS | Encounter Summary ---
:1940 Author Organization [facility] [place] [address] Care Team Providers Name Role Phone Bobby Das MD Primary Care Provider Encounter Details Date Type Department Care Team Description 08/06/2020 Ancillary Procedure Radiology at [facility] LiseAmy madrigal [address] [place] [address] [address] [phone] NEUROSURGERY-N [place], [place] [address] Social History Tobacco Use Types [...] 07/02/2022 Office Visit Vascular Surgery Jing Ghosh, STRIPPING SHOVEL OILER [facility] ER VASCULAR SURGERY [place], [place] [address] (Wo rk) 09/02/2022 Clinical Support Dermatology Thai Lynn MD [facility] ER DR JENNY BILLY-DERMAT [place], [place] [address] (Wo rk) 09/02/2022 Procedure visit Dermatology Jace Lynn MD [facility] DR JENNY BILLY[address]DERMAT [place], [place] [address] (Wo rk) 09/05/2022 Appointment Cardiology Trinity Reid MD [facility] ER CARDIOLOGY [place], [place] [address] (Wo rk) 09/05/2022 Office Visit Cardiology Trinity Reid MD [facility] ER CARDIOLOGY [place], [place] [address] (Wo rk) documented as of this encounter Procedures Procedure Name Priority Date/Time Associated Diagnosis Comme nts FILM LIBRARY Routine 08/06/2020 12:05 AM Results for this STORAGE ONLY DX EDT procedure ar e in SPINE the results section. documented in this encounter Results Film Library- Storage Only DX Spine (08/06/2020 12:05 AM EDT) Specimen (Source) Anatomical Location Collection Method / Collectio n Time Received Time / Laterality Volume Narrative JOSE ALEJANDRO MCKINNON - 09/14/2020 5:56 PM EST This exam is auto-finalizing. It's purpo se is for storage only. Amy Grimaldo MD IMG FILM LIBRARY ORDERABLES Performing Organization Address City/State/ZIP Code Phon e Number [place], [place] documented in this encounter Visit Diagnoses Not on filedocumented in this encounter Care Teams Software Architect Relationship Specialty Start Date End Date Bobby Das MD PCP - General 10/02/[address] [place] [address] [place] [phone] documented as of this encounter
--- OUTSIDE RECORDS SUMMARY | 2022-06-23 00:19 | XMS_ITS | Encounter Summary ---
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 Thoracic Surg [address] [place] [address] [place] [address] [place] [address] Phone: Fax: Referral ID Status Reason Start Date Expiration Date Visits V isits Requested Authorized [id number] Denied Consult, 12/18/2016 12/18/2017 1 0 Test & Treat Encounter Details Date Type Department Care Team Description 12/18/2016 Telephone Pain Management at Chano Freitas MD [facility] [place] [address] PAIN CLINIC [phone] [place], [place] [address] (Wo rk) Social History Tobacco Use Types Packs/Day Years Used Date Current Some Day Smoker 1 50 Smokeless Tobacco: Never Used Sex Assigned at Date Recorded Not on file documented as of this encounter Miscellaneous Notes Telephone Encounter - Chano Rebolledo MD - 12/18/2016 12:[address] chest/abdomen/pelvis 2-7-17: 1. Lingular pulmonary nodule measuring 6 mm, likely intrapulmonary lymph node. As per Fleischner Society recommendations for management of solid nodules, follow-up chest CT is recommended in 12 months for low risk patients. For patients with a smoking history or other risk factors for lung cancer, initial follow-up in 6-12 months is recommended. 2. L4 vertebral body compression fracture of indeterminate age. Diffusely decreased osseous mineralization. 3. Dense sclerosis in bilateral femoral heads, possible early avascular necrosis. 4. Nonobstructing bilateral renal calculi. 5. Enlarged prostate. --- I discussed the result of lingular pulmonary nodule measuring 6mm with the patient. He will discuss with his primary care physician, Dr. Reilly, to obtain a pulmonary care physician consultation in his area. At this time, the patient wishes defer the EMG and pursue the pulmonary findings first. I will make a heme/oncology consultation with [facility] for the patient in the meantime. documented in this encounter Plan of Treatment Upcoming Encounters Date Type Specialty Care Team Description 07/02/2022 Office Visit Vascular Surgery Jing Ghosh, HIRAL [facility] VASCULAR SURGERY [place], [place] [address] (Wo bob) 09/02/2022 Clinical Support Dermatology Thai Lynn MD [facility] DR JENNY BILLY-DERMAT [place], [place] [address] (Rebekah rojas) 09/02/2022 Procedure visit Dermatology Jace Lynn MD [facility] DR JENNY BILLY-DERMAT [place], [place] [address] (Rebekah rk) 09/05/2022 Appointment Cardiology Trinity Reid MD [facility] DR WARNER [place], [place] [address] (Rebekah rojas) 09/05/2022 Office Visit Cardiology Trinity Reid MD [facility] CARDIOLOGY [place], [place] [address] (Wo rk) Scheduled Referrals Name Type Priority Associated Diagnoses Order S chedule Referral to Outpatient Referral Routine Neoplasm of Ordered: Hematology and uncertain behavior 017 Oncology of respiratory organ documented as of this encounter Visit Diagnoses Diagnosis 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
--- OUTSIDE RECORDS SUMMARY | 2022-06-23 00:19 | XMS_ITS | Encounter Summary ---
:1940 Author Organization [facility] [place] [address] Care Team Providers Name Role Phone Bobby Das MD Primary Care Provider Encounter Details Date Type Department Care Team Description 06/26/2018 Ancillary Procedure Radiology Library at Bobby Almaguer [place] [facility] [place] [address] [place] [phone] (Wo rk) Social History Tobacco Use Types Packs/Day Years Used Date Current Some Day Smoker 1 50 Smokeless Tobacco: Never Used Sex Assigned at Date Recorded Not on file documented as of this encounter Plan of Treatment Upcoming Encounters Date Type Specialty Care Team Description 07/02/2022 Office Visit Vascular Surgery Jing Ghosh APRN [facility] DR VASCULAR SURGERY [place], [place] [address] (Wo rk) 09/02/2022 Clinical Support Dermatology Thai Lynn MD [facility] ER DR JENNY BILLY-DERMAT [place], [place] [address] (Wo rk) 09/02/2022 Procedure visit Dermatology Jace Lynn MD [facility] DR JENNY BILLY-DERMAT [place], [place] [address] (Wo rk) 09/05/2022 Appointment Cardiology Trinity Reid MD [facility] ER CARDIOLOGY [place], [place] [address] (Wo rk) 09/05/2022 Office Visit Cardiology Trinity Reid MD [facility] ER CARDIOLOGY [place], [place] [address] (Wo rk) documented as of this encounter Procedures Procedure Name Priority Date/Time Associated Diagnosis Comme nts FILM LIBRARY Routine 06/26/2018 12:00 AM Results for this STORAGE ONLY DX EDT procedure ar e in SPINE the results section. documented in this encounter Results Film Library- Storage Only DX Spine (06/26/2018 12:00 AM EDT) Specimen (Source) Anatomical Location Collection Method / Collectio n Time Received Time / Laterality Volume Narrative RAD - 06/29/2019 9:46 PM EDT This exam is auto-finalizing. It's purpo se is for storage only. Bobby Das MD IMG FILM LIBRARY ORDERABLES Performing Organization Address City/State/ZIP Code Phon e Number [place], [place] documented in this encounter Visit Diagnoses Not on filedocumented in this encounter Care Teams Data Integration Architect Relationship Specialty Start Date End Date Bobby Das MD PCP - General 10/02/[address] [place] [address] [place] [phone] documented as of this encounter
--- OUTSIDE RECORDS SUMMARY | 2022-06-23 00:19 | XMS_ITS | Encounter Summary ---
:1940 Author Organization [facility] [place] [address] Care Team Providers Name Role Phone Bobby Das MD Primary Care Provider Encounter Details Date Type Department Care Team Description 08/28/2020 Ancillary Procedure Radiology at [facility] Amy Grimaldo [address] [place] [address] [address] [phone] NEUROSURGERY-N [place], [place] [address] Social History Tobacco Use Types [...] 07/02/2022 Office Visit Vascular Surgery Jing Ghosh, CORRECTIONAL OFFICER [facility] ER VASCULAR SURGERY [place], [place] [address] (Wo rk) 09/02/2022 Clinical Support Dermatology Thai Lynn MD [facility] ER DR JENNY BILLY-DERMAT [place], [place] [address] (Wo rk) 09/02/2022 Procedure visit Dermatology Jace Lynn MD [facility] DR JENNY BILLY-DERMAT [place], [place] [address] (Wo rk) 09/05/2022 Appointment Cardiology Trinity Reid MD [facility] ER CARDIOLOGY [place], [place] [address] (Wo rk) 09/05/2022 Office Visit Cardiology Trinity Reid MD [facility] ER [place]OLOGY [place], [place] [address] (Wo rk) documented as of this encounter Procedures Procedure Name Priority Date/Time Associated Diagnosis Comme nts FILM LIBRARY Routine 08/28/2020 12:00 AM Results for this STORAGE ONLY EDT procedure are i n NUCLEAR MEDICINE the results section. documented in this encounter Results Film Library- Storage Only nuclear medicine (08/28/2020 12:00 AM EDT) Specimen (Source) Anatomical Location Collection Method / Collectio n Time Received Time / Laterality Volume Narrative JOSE ALEJANDRO MCKINNON - 09/14/2020 6:00 PM EST This exam is auto-finalizing. It's purpo se is for storage only. Amy Grimaldo MD [facility] FILM LIBRARY ORDERABLES Performing Organization Address City/State/ZIP Code Phon e Number [place], [place] documented in this encounter Visit Diagnoses Not on filedocumented in this encounter Care Teams Desk Director Relationship Specialty Start Date End Date Bobby Das MD PCP - General 10/02/[address] [place] [address] [place] [phone] documented as of this encounter
--- OUTSIDE RECORDS SUMMARY | 2022-06-23 00:19 | XMS_ITS | Encounter Summary ---
:1940 Author Organization [facility] [place] [address] Care Team Providers Name Role Phone Bobby Das MD Primary Care Provider Reason for Visit Reason Comments Basal Cell Carcinoma Consultation (Routine) - Closed Specialty Diagnoses / Procedures Referred By Contact Refer red To Contact Dermatology Diagnoses REQUESTING MOHS PROCEDURE RIGHT EYEBROW FOR LESION REMOVED BUT ADDITIONAL TISSUE REMAINS Bobby Das MD Vidal, Nahid Y, MD [address] [place] [address] [place] [phone] [place] [id number] Fax: Referral ID Status Reason Start Date Expiration Date Visits V isits Requested Authorized [id number] Closed Consult, 06/24/2018 06/24/2019 1 [facility] Encounter Details Date Type Department Care Team Description 09/23/2018 Procedure visit Dermatology at [facility], Basal cell carcinoma Nicol CARCAMO (BCC) of eyebrow [address] [facility] [address] [place] [address] [phone] Social History Tobacco Use Types Packs/Day Years Used Date Current Some Day Smoker 1 50 Smokeless Tobacco: Never Used Sex Assigned at Date Recorded Not on file documented as of this encounter Last Filed Vital Signs Vital Sign Reading Time Taken Comments Blood Pressure 110/60 09/23/2018 10:14 AM EST Pulse 50 09/23/2018 10:14 AM EST Temperature - - Respiratory Rate 20 09/23/2018 10:14 AM EST Oxygen Saturation - - Inhaled Oxygen Concentration - - Weight - - Height - - Body Mass Index - - documented in this encounter Patient Instructions Patient InstructionsCassy JacobsonGWEN - 09/23/2018 10:00 AM EST Your staff surgeon today was Alvaro Llanos MD. Your wound(s) was repaired by facg-cz-zmni stitches called a primary repair. You do not need to come back for suture removal because only absorbably sutures were used today. If the absorbable sutures bother your skin or do not absorb after 2 weeks, you may call us to remove them for you. Instructions are as below. Please keep this as a reference: Wound Care For wounds closed with absorbable-only stitches: ??? Gently remove your initial bandage (after 48 hours from surgery) and begin wound care as below. ??? If your initial bandage only lasts 24 hours (for example, falls off sooner), this is okay. Resume your wound care and bandaging instructions as below. ??? Change your bandage once a day (and whenever it becomes wet or soaks through). DO WOUND CARE FORONE WEEK. ??? For bandage changes: o Wash hands with soap and water, or use gloves that you can purchase a local pharmacy or drug store. o Clean the surgical area with cotton-tipped swabs or gauze dipped in soapy water (recommend liquid soap in clean room temperature water). Do not scrub the area or put direct shower water pressure ontoyour wound. It is okay to allow soapy water to run over your wound in the shower. o If you cannot remove crusted areas, you may soak with wet gauze first for 15 to 20 minutes to helpsoften it o Pat the area dry with clean gauze or cotton swabs. Do not rub. o Use a cotton swab to apply a generous layer of petroleum jelly over the incision lines and any open-wound areas. o Cover with clean nonstick gauze or other nonstick dressing, such as Telfa. This may be purchased over the counter at a drug store. Secure with paper tape or bandage. Band-aids are okay, but typicallyhave more adhesive that can irritate the skin compared to paper tape. o Continue wound care daily until stitches are removed. o Discontinue wound care after 7 days. o Allow the absorbable stitches to heal. If the top stitches that are absorbable are irritating yourskin, you may call us to have them removed. Otherwise, they will be absorbed naturally in approximately 2 weeks. It may absorb as quickly as 4 days. After Surgery 1. Avoid tobacco, smoking/vapors, cigars, and cannabis (marijuana) for at least 3 weeks after your surgery. These prevent proper healing and lead to worse scarring. Cutting back on tobacco is helpful if you cannot abstain completely. 2. Do not drink alcohol for roughly 3 days as this can slow healing or cause bleeding. 3. Do not participate in athletic activities for 1 week, unless you were told a different timeline during your visit. Athletic activity is a relative term, but this is considered to be anything that could potentially raise your heartrate or blood pressure. Elevating your heart rate and blood pressure increases the risk of swelling, bleeding, wound opening, and it could lead to worse scarring. Walkingat a leisurely pace is fine for most people, but not if you are walking for the purpose of exercise.When in doubt, take it easy or call us. 4. Do not lift anything heavier than 10 pounds until your sutures are removed. 5. Some bread panner may need to be delayed or delegated such as vacuuming, mowing the lawn, snow shoveling, or caring for young children that need to be carried/lifted. Working any major muscle groups increases your heart rate and can increasing bleeding. 6. Avoid swimming, hot tubs, and direct water pressure for 3 weeks after surgery. You may shower, however, once your initial bandage comes off in 48 hours. 7. Avoid antibiotic ointments such as triple antibiotic creams. Stick with your wound care instructions, please. 8. Whenever possible, it is helpful to take photographs with your camera or cell phone of any problems or concerns you see with your wound. We often ask for photos when you call with questions. 9. Starting 2 months following surgery, you can begin firm massage to any areas of firm scar along your incision to soften the scar and reduce bumpiness. Do this 3 times per day, 3 minutes each time. Do not start massage before 2 months. 10. Your wound will appear almost completely healed soon after sutures are removed (about 1 week), but incisions can remain bright red for several weeks. Then the scarring and healing process continuesunder the skin for 6 months until to 2 years. The scar may become less red, less firm, and more subtle during this time; please note that the rate of improvement varies depending on the person. Most redness, discoloration, bumpiness resolves by 6 months, and most patients will look presentable within a few weeks after surgery. 11. Keep your follow-up appointments and make sure to continue to have your skin checked, as often as is recommended by your rail car repairman, for new skin cancers. This is once per year for most patients. 12. Your can expect your scar to be red for several weeks with gradual fading of the redness. Your scar will also be raised and lumpy until the dissolvable sutures under the skin get absorbed by your body which can take 3-4 months. The scar will flatten eventually. a. If you have a skin condition called rosacea, the redness can last long-term, or you can get an increased appearance of red vessels to the skin. The appearance of vessels slightly improves, but tendsto respond well to laser treatments. 13. Occasionally, about 20% of the time on the face, the stitches under the skin can spit out of the incision to the surface. It can start out looking like a pimple or blemish directly on your incision. Sometimes you can feel something poking through the incision. it can look also minic a small areaof infection, so please let us know before you go to another provider for antibiotics. This means that the suture may need to be trimmed or removed when you return for your wound check. This typically occurs a few weeks after surgery if it does occur. 14. To optimize your scar, and best cosmetic result, please avoid direct sunlight to your incision for the first 6 months following surgery. UV ray exposure to your incision may cause the redness to last longer, or to cause permanent darkening of your scar. You can avoid sun by covering your incision w ith a bandage when outdoors, wearing broad-rimmed hats, and wearing SPF 30 to 50 sunscreen (broad spectrum). 15. Sometimes after your sutures are removed, your incision may still be healing for 1 more week. Because of this, avoid make-up and sunscreen until approximately 2 weeks after surgery. You can begin sooner if your skin edges look completely sealed. 16. Any time you have skin surgery or any type of surgery, you can experience mild sensation loss (numbness) in the area of surgery. Massage starting at 8 weeks after surgery can help. 17. Swelling and bruising is common, and expected, especially if your surgery site was on the forehead, cheeks, temples, nose, or eyelids. . Sometimes it can be quite profound, where the eyelids swell shut, or getting black eyes. This is especially true if you are on blood thinners such as aspirin. Swelling and bruising will peak at about 48 hours after surgery. Bruising and swelling will graduallyresolve. You can use ice packs or a bag of frozen peas for 15-20 minutes, 20 minutes off, up to 3-4 times daily to areas of swelling on the face. Use caution not to put the icy item directly onto your incision, or directly in contact with your skin as this can damage skin. Avoid prolonged use more than 20 minutes. The best way to use ice packs is over the bandage, or using a light cloth/paper towel barrier between the ice pack and your skin. You can ice for as many days as needed until swelling has resolved. Eyelid and lip swelling is typically the last type of swelling to resolve. o Keep in mind that if you do not want to use a bandage at all due to difficulty, allergies, irritation of skin, cost, time, or inconvenience --- you can certainly avoid bandages altogether. However, itis imperative that you continue with topical petrolatum ointment or Aquaphor (plain, fragrance-free). This may need to be applied several times daily if it gets wiped off, washed off, or dries out. Things to purchase for wound care: -Nonstick gauze -A tube or tub of petrolatum jelly (fragrance-free, no dye, not lotion) -paper tape -cotton swabs -gloves (optional) -Dial or other antibacterial liquid soap If you have specific questions or instructions, it can be written/typed by your nurse or doctor here: Antibiotics: If you were given antibiotic prescription, it is important to start them the evening of your surgerydate. However, most patients do not need antibiotics after surgery. For pain: Most patients of different ages do not require pain medications. If you do feel soreness, throbbing or sharp pains, start by taking over the counter extra strength acetaminophen (up to 3000 mg in a 24 hour period). Generally, we like you to avoid NSAIDS (non-steroid anti-inflammatory drugs such as ibuprofen) for the first 48 hours after surgery as this can increase risk of bleeding. However, if acetaminophen is not helping with pain, you can alternate acetaminophen with iburpofen or other NSAID. Icepacks over your bandage without getting your bandage wet can also help with pain and swelling. Frozen peas work well as ice packs. THIS IS AN EXAMPLE OF A PAIN TREATMENT SCHEDULE: 1) You can take 500 mg acetaminophen one tablet by mouth at 6:00pm. This is over the counter. 2) You can take 400 mg of ibuprofen two hours later, at 8:00 pm, or other NSAID such as naproxen, aslong as it does not interact with your other medications and your other doctors have not told you toavoid this. This is over the counter. Check to see how many milligrams (mg) each of your ibuprofen tablets are. Most of the time, ibuprofen comes in 200 mg tablets, so 400 mg would mean taking two of these tablets or capsules. 3) You can take 500 mg of acetaminophen at 10:00 pm. Keep track of your total acetaminophen in a 24 hour period as your maximum should be 3000 mg total in a 24 hour period of this medication. 4) At midnight, you can take another 400 mg of ibuprofen. 5) you can continue on this schedule over the next 2 days, making sure to keep tabs of your total acetaminophen. If you are still in pain after trying the above, please call us. When to call your surgeon: ??? Fever of 100.4 degrees Fahrenheit or higher ??? Bleeding not controlled with direct firm pressure to your wound. Bleeding is most common in the first 48 hours. ??? Pain that is worsening and not relieved by over the counter medications such as acetaminophen (up to 3000 mg in a 24 hour period) ??? Wound reopening after stitching ??? Pus or bad odor from your wound ??? Worsening redness and warmth around your wound ??? If you think your surgery site is infected, please call us before seeking care or antibiotics from other providers ??? Please call us before seeking care in an emergency room or primary care. ??? If you do call, please leave your full name, phone number, date of , date of surgery, and medical record number if you have it. If after hours, please call the reduction furnace operator or [phone] and ask for the rail car repairman on-call. If you have any non-urgent questions or concerns, please feel free to call my office or contact me through our patient portal, [employer], at [email or web address] How to contact us during business hours Dermatology at [facility] [address]: Mohs scheduling or Mohs follow-up appointments: [phone] documented in this encounter Progress Notes Alvaro Llanos MD - 09/23/2018 10:00 AM EST Images from the original note were not included. Mohs consultation and preoperative note (H&P) Patient Name: Koko Zamora Age: 77 y.o. Date of : 1940 Today's Date: 09/23/2018 REFERRING PROVIDER: Bobby Reilly MD CC: Mohs [...] Who lives with patient (i.e. spouse, children, long-term/[place] [facility] [place])? Spouse Relevant travel history or future plans: [...] facility-administered medications on file prior to visit. VITAL SIGNS: Blood pressure 110/60, pulse 50, resp. rate 20. PHYSICAL EXAMINATION: General: patient is awake, alert, oriented and in no acute distress. Skin: Focused examination of surgical site(s) performed which shows an erythematous scar corresponding with recent biopsy site. Right eyebrow PHYSICIAN REVIEW OF REPORTS, RECORDS, IMAGES: 1) Biopsy slide(s) was/were requested and reviewed today by the Mohs surgeon prior to surgery and I agree with diagnosis in the associated pathology report. 2) The accompanying pathology report(s) associated with aforementioned biopsy slide(s) were/was alsoreviewed. Assessment/Plan: Koko Zamora is a 77 y.o. male presenting for: 1. 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 Previously excised by PCP with positive margins. I reviewed the slides and this revealed basal cell carcinoma and overall very small tissue sample. Plan to proceed with Mohs micrographic surgery. See operative report. Discussion: 1. Findings from the biopsy report, my independent review of the histopathology from the biopsy slides, today's clinical exam, and other pertinent details were reviewed with patient today. We discussedfactors specific to the patient including the likely defect size and likely repair options based on the initial clinical picture. All questions were answered. 2. Discussed treatment options based on the above findings. I recommended Mohs micrographic surgery for treatment of this tumor. Mohs micrographic surgery was indicated due to patient, site and/or tumor characteristics (see operative report for specific indication). 3. We discussed risks, benefits, and alternative treatment options to the Mohs micrographic surgery procedure and pertinent information including but not limited to the following: ?? Risks include bleeding, infection, scar, recurrence, loss of sensation. Risks include incomplete tumor removal or inability to cure with surgery alone if the tumor itself has features that are more aggressive than the initial pathology indicated, which cannot be known until tissue is evaluated. Occasionally, additional adjuvant treatments may be recommended based on frozen section tumor features. Additional risks include large wound, prolonged wound and healing, pain, swelling, bruising, increased appearance of vessels or worsening erythema of baseline skin; more rarely risks include damage to underlying structures such as nerves, cartilage, or muscle which could lead to temporary or permanent loss of sensation or motor function. ?? Benefit is precise tumor removal ?? If reconstruction is performed, it is specific to the patient and defect and takes account the patient's features, age, and preferences. Discussed that each defect is unique to the patient. ?? Discussed that the shape, size, depth of the wound is often not known until the tumor is cleared and thus the reconstruction options are sometimes not known until after tumor clearance. Occasionally, referrals to other providers may be recommended for reconstruction based on patient preference and need. ?? Reviewed the pros and cons of common reconstructions used for this tumor type, size, and location, and that reconstruction may lead to change in appearance. ?? Natural history of scar was discussed, including that the scar will continue to mature for 1-2 years. Recommended massage after 8 weeks to the scar, and especially avoidance of direct sun exposure to the scar for optimal recovery for at least 6 months. ?? Reviewed that there are some aspects of cosmesis that are dependent on patient's characteristics such as age, skin laxity/texture factors, size of pores, inflammatory skin diseases such as rosacea or rhinophyma, prior surgery/radiation, degree of current sun damage, smoking status, strength of the patient's immune system, ability of patient to follow diligent wound care instructions, medications, and genetics. ?? Having Mohs surgery may lead to physical limitations for optimal healing, such as restricted physical activity and heavy lifting. The degree of limitations and duration depends on the specific size of the defect and reconstruction type. 4. The nature of sun-induced photo-aging and skin cancers was discussed. Recommended sun avoidance when possible, especially peak hours of sun 10 am to 2pm, protective clothing such as wide-brimmed hats and long-sleeved clothing, and the use of SPF broad-spectrum sunscreen SPF 30 to 50. 5. Signs and symptoms of skin cancer reviewed. Patient to report any new, changing, or symptomatic lesions and follow up with his or her referring rail car repairman or other skin provider. Summary of Procedure(s): 1. Please see operative report for complete details. Mohs micrographic surgery was performed today, with tumor-free peripheral and deep margins. Please note that there is a pathology report from the biopsy, but no official pathology report for the Mohs surgery is generated. Rather, the operative report serves as the final margin assessment. Briefly, after clinical removal of the tumor, the tumor cleared after 1 stage(s) of Mohs micrographic excision. The final defect after Mohs surgery was repaired by complex linear closure. Follow up as needed per patient preference. Alvaro Llanos MD Mohs Micrographic Surgery and Dermatologic Oncology Section of Dermatology, Department of Surgery Alvaro Llanos MD - 09/23/2018 10:00 AM EST Mohs micrographic Surgery Operative Report Patient name: Koko Zamora : 1940 Date: 09/23/2018 Staff Surgeon: Alvaro Llanos MD Nursing/Single Resource Boss(s): Assistants: Cassy Jacobson LPN, Jolene Pretty RN, Yolanda Fraser LPN, Savanah Licea CMA Maker Up Folding (s): Cristina Cisneros Amanda Isenor Pre-operative diagnosis: basal cell carcinoma nodular Post-operative diagnosis: same Location/Site: Right eyebrow Procedure: Mohs micrographic surgery Indication(s) for Mohs micrographic surgery: Anatomic location for tissue conservation Stages: 1 Preoperative size of tumor: 1.1 x 1.1 cm Final defect size: 1.5 x 1.5 cm Stage I The nature and purpose of the procedure, associated risks, possible consequences and complications,and alternative forms of treatment were explained in detail. We reviewed the possible repairs based on the clinical appearance of tumor but discussed that often the repair options may not be known until the tumor has dann extirpated. Informed consent and permission to take photographs were obtained. The site was confirmed with the patient/authorized customer response representative/referring physician and/or a photograph form time of biopsy. A pre-operative time-out (procedural pause) was conducted with no unresolved d iscrepancies noted. Local anesthesia was obtained with buffered 1% lidocaine with 1:100,000 epinephrine. The surgical site was prepped and draped in the usual sterile manner. Clinically apparent tumor was removed by curette. With all visible gross tumor completely excised, the borders of the tumor and 2-3 mm margins were excised as a complete layer. Hemostasis was achieved by electrocoagulation. The excised tissue was oriented and divided into 1 sections, chromacoded, and submitted for frozen sections. The patient tolerated the procedure well and without complications. On microscopic evaluation of the frozen sections, no residual tumor was identified on the deep or outer border of the sections. The final size of the defect after complete tumor removal was 1.5 x 1.5 cm, extending to level of subcutaneous fat. Alvaro Llanos MD Repair Operative Report (Complex Linear Repair with S-Plasty) Patient name: Koko Zamora : 1940 Clinical Diagnosis: 1.5 x 1.5 cm surgical defect secondary to Mohs microscopically controlled excision Location/Site: Right eyebrow Indication: repair of wound for advent of function/anatomy Final Defect size: 1.5 x 1.5 cm Procedure: Complex linear layered closure of Mohs defect with S-plasty modification Due to the size and location of the defect resulting from the complete removal of the tumor, the postoperative risk of hemorrhage, infection, and the possibility of serious deformity from scarring, and in order to restore proper function and prevent loss of function, the defect was closed with layered closure and S-plasty modification to redirect tension of this particular anatomic site and to shorten the final length of closure. The nature and purpose of the procedure, associated risks, possible consequences, complications andalternative methods of treatment were explained to the patient in detail. An informed consent was obtained. The operative site was anesthetized with 1% lidocaine with 1:100,000 epinephrine. The site was prepped and draped in the usual sterile manner. The edges of the defect were widely undermined at the dermal subcutaneous layer in all directions. The edges could then be approximated without excess tension. Hemostasis was achieved with electrocoagulation. Redundant adjacent tissue was removed as needed from opposite poles of the defect in direction of skin tension lines. The deep tissues were apposed and sutured with 4-0 / 5-0 Monocryl sutures and the epidermal edges were approximated with 6-0 fast absorbing mehdi running and/or interrupted sutures. The resulting complex linear closure measured 4.0cm. The surgical site was cleaned and white petrolatum with a gauze pressure dressing applied. The patient tolerated the procedure well and without complications and was given both verbal and written instruction on postoperative wound care. Estimated blood loss: Minimal. Complications: None. Wound care: R outine. Follow up prn. The patient was discharged in good condition. Total local anesthesia with 1% lidocaine with 1:100,000 epinephrine used: 6 ccs Total local with 0.25% bupivacaine with 1:100,000 epinephrine used: 3 ccs Staff Surgeon: Alvaro Llanos MD Mohs Micrographic Surgery and Dermatologic Oncology Section of Dermatology, Department of Surgery documented in this encounter Plan of Treatment Upcoming Encounters Date Type Specialty Care Team Description 07/02/2022 Office Visit Vascular Surgery Jing Ghosh, CORPORATE TAX MANAGER [facility] VASCULAR SURGERY [place] [id number] (Wo rk) 09/02/2022 Clinical Support Dermatology Thai Lynn MD [facility] DR [address], [place] [address] (Wo rk) 09/02/2022 Procedure visit [facility] [facility]ENNY BILLY[facility]DERMAT [place], [place] [address] (Wo rk) 09/05/2022 Appointment Cardiology Trinity Reid MD [facility] CARDIOLOGY [place], [place] [address] (Wo rk) 09/05/2022 Office Visit Cardiology Trinity Reid MD [facility] CARDIOLOGY [place], [place] [address] (Wo rk) documented as of this encounter Visit Diagnoses Diagnosis Basal cell carcinoma (BCC) of eyebrow documented in this encounter Care Teams Auto Research Engineer Relationship Specialty Start Date End Date Bobby Das MD PCP - General 10/02/[address] [place] [address] [place] [phone] documented as of this encounter
--- OUTSIDE RECORDS SUMMARY | 2022-06-23 00:20 | XMS_ITS | Encounter Summary ---
:1940 [place] [address] Care Team Providers Name Role Phone Bobby Das MD Primary Care Provider Encounter Details Date Type Department Care Team Description 08/25/2015 Telephone Dermatology at [facility] Gloria Ferrell MD [address] [facility] [place] [phone] [facility][1]-DERMATOLOGY [phone] [place], [place] [address] (Wo rk) Social History Tobacco Use Types Packs/Day Years Used Date Current Some Day Smoker 1 50 Smokeless Tobacco: Never Used Sex Assigned at Date Recorded Not on file documented as of this encounter Miscellaneous Notes Telephone Encounter - Gloria Ferrell MD - 08/25/2015 7:51 AM EDT Koko Zamora was called on 1st day post-operatively for follow up. Mr. Zamora reports the dressing is clean, dry and intact. There is no reported drainage or signs of infection. Mr. Zamora reports good pain control. There was a brief conversation addressing the expected course, and signs of infection or other potential complications were discussed. Mr. Zamora denies any other questions or concerns at this time. Mr. Zamora is scheduled for follow up, and has been encouraged to call with any questions or concerns that arise prior to this appointment. documented in this encounter Plan of Treatment Upcoming Encounters Date Type Specialty Care Team Description 07/02/2022 Office Visit Vascular Surgery Jing Ghosh, HIRAL [facility] VASCULAR SURGERY [place], [place] [address] (Wo rk) 09/02/2022 Clinical Support Dermatology Thai Lynn MD [facility] DR JENNY BILLY-DERMAT [place], [place] [address] (Wo rk) 09/02/2022 Procedure visit Dermatology Jace Lynn MD [facility] DR JENNY BILLY[facility]DERMAT [place], [place] [address] (Wo rk) 09/05/2022 Appointment Cardiology Trinity Reid MD [facility] CARDIOLOGY [place], [place] [address] (Wo rk) 09/05/2022 Office Visit Cardiology Trinity Reid MD [facility] CARDIOLOGY [place], [place] [address] (Wo rk) documented as of this encounter Visit Diagnoses Not on filedocumented in this encounter Care Teams Deckhand Engineer Relationship Specialty Start Date End Date Bobby Das MD PCP - General 10/02/[address] [place] [address] [place] [phone] documented as of this encounter
--- OUTSIDE RECORDS SUMMARY | 2022-06-23 00:20 | XMS_ITS | Encounter Summary ---
:1940 Author Organization [facility] [place] [address] Care Team Providers Name Role Phone oBbby Das MD Primary Care Provider Reason for Visit Reason Comments Skin Check Encounter Details Date Type Department Care Team Description 03/29/2014 Office Visit Dermatology at [facility], Kyle c ell carcinoma (Primary Dx); Nba CARCAMO Verruca vulgaris; [address] [place] (actinic keratosis) [facility] B DERMATOLOGY [place], [place] [phone] Social History Tobacco Use Types Packs/Day Years Used Date Current Some Day Smoker 1 50 Smokeless Tobacco: Never Used Sex Assigned at Date Recorded Not on file documented as of this encounter Progress Notes Cy Knight MD - 03/29/2014 2:00 PM EDT Problem: Facial skin lesions. Shadi is a 73-year-old gentleman who has noted a scabbing, bleeding lesion near the right lateral canthus. He has also had a hyperkeratotic papule on the central upper forehead. He himself has tried to remove this, but it grew back. He has had a fair amount of sun over the years. He lives in [place], [place]. Physical examination reveals a pleasant, 73-year-old gentleman who has a pearly, 1-cm papule on the right lateral canthus, site A; and a pearly papule about 8 mm in diameter, site C, on the right oriental orthodox at the scalp line. At the central upper forehead, he has a hyperkeratotic papule consistent with a verruca and what appears to be an actinic keratosis superior to that just at the hairline of the upper forehead. Otherwise, facial skin examination is unremarkable. He does not desire examination of chest or back. Assessment and Plan: 1. Probable BCCAs, right lateral canthus and right lateral oriental orthodox, sites A and C, respectively. a. After obtaining informed patient consent, the sites were anesthetized and removed with shave C and D. After curettage, site A measured 1 cm in diameter, and site C measured 8 mm in diameter. 2. Verruca vulgaris, central forehead, and actinic keratosis, upper central forehead at hairline. a. Then attention was turned to site B, central forehead, and shave C and D of this site was performed and light C and D was utilized to remove site D, what appeared to be an actinic keratosis, and destruction was utilized to remove the actinic keratosis. Then the actinic site at the upper forehead at the hairline was removed with curettage. After C and D, site B measured 1 cm in diameter. b. The patient was reassured about otherwise benign sun-exposed skin examination. c. I recommended I see him again in another two months for repeat check on these sites. d. Wound care instructions and supplies given. COPY: Bobby Das M.D. documented in this encounter Plan of Treatment Upcoming Encounters Date Type Specialty Care Team Description 07/02/2022 Office Visit Vascular Surgery Jing Ghosh, HIRAL [facility] VASCULAR SURGERY [place], [place] [address] (Wo rk) 09/02/2022 Clinical Support Dermatology Thai Lynn MD [facility] DR [facility] [place], [place] [address] (Wo bob) 09/02/2022 Procedure visit Dermatology Jace Lynn MD [facility] DR [facility], [place] [address] (Wo rk) 09/05/2022 Appointment Cardiology Trinity Reid MD [facility] CARDIOLOGY [place], [place] [address] (Wo rk) 09/05/2022 Office Visit Cardiology Trinity Reid MD [facility] CARDIOLOGY [place], [place] [address] (Wo rk) documented as of this encounter Visit Diagnoses Diagnosis Basal cell carcinoma - Primary Basal cell carcinoma of skin, site unspe cified Verruca vulgaris Viral warts, unspecified [place] (actinic keratosis) Actinic keratosis documented in this encounter Care Teams Business Intelligence Developer Relationship Specialty Start Date End Date Bobby Das MD PCP - General 10/02/[address] [place] [address] [place] [id number] documented as of this encounter
--- OUTSIDE RECORDS SUMMARY | 2022-06-23 00:20 | XMS_ITS | Encounter Summary ---
:1940 Author Organization [facility] [place] [address] Care Team Providers Name Role Phone Bobby Das MD Primary Care Provider Reason for Visit Reason Onset Date Comments Pre Procedure Call 08/01/2015 Encounter Details Date Type Department Care Team Description 08/01/2015 Telephone Dermatology at [facility] Cassy Jacobson, Pre Procedure Call [address] [place] [phone] Social History Tobacco Use Types Packs/Day Years Used Date Current Some Day Smoker 1 50 Smokeless Tobacco: Never Used Sex Assigned at Date Recorded Not on file documented as of this encounter Miscellaneous Notes Telephone Encounter - Cassy Jacobson LPN - 07/08/2016 11:32 AM EDT Message left to call our office regarding appointment with Dr. Solo. Cassy Jacobson LPN documented in this encounter Plan of Treatment Upcoming Encounters Date Type Specialty Care Team Description 07/02/2022 Office Visit Vascular Surgery Jing Ghsoh, HIRAL [facility] ER VASCULAR SURGERY [place], [place] [address] (Wo rk) 09/02/2022 Clinical Support Dermatology Thai Lynn MD [facility] DR [facility] [place], [place] [address] (Rebekah rk) 09/02/2022 Procedure visit Dermatology Jace Lynn MD [facility] [address]DERMAT [place], [place] [address] (Wo rk) 09/05/2022 Appointment Cardiology Trinity Reid MD [facility] CARDIOLOGY [place], [place] [address] (Wo rk) 09/05/2022 Office Visit Cardiology Trinity Reid MD [facility] CARDIOLOGY [place], [place] [address] (Wo rk) documented as of this encounter Visit Diagnoses Not on filedocumented in this encounter Care Teams Plugger Relationship Specialty Start Date End Date Bobby Das MD PCP - General 10/02/[address] [place] [address] [place] [phone] documented as of this encounter
--- OUTSIDE RECORDS SUMMARY | 2022-06-23 00:20 | XMS_ITS | Encounter Summary ---
:1940 Author Organization [facility] [place] [address] Care Team Providers Name Role Phone Bobyb Das MD Primary Care Provider Reason for Visit Reason Comments Follow-up Encounter Details Date Type Department Care Team Description 05/31/2014 [facility] of basal cell Nba CARCAMO carcinoma (Primary [address] Dx) [facility] B DERMATOLOGY [place], [place] [phone] Social History Tobacco Use Types Packs/Day Years Used Date Current Some Day Smoker 1 50 Smokeless Tobacco: Never Used Sex Assigned at Date Recorded Not on file documented as of this encounter Patient Instructions Patient InstructionsSupriya Louis LPN - 05/31/2014 1:34 PM EDT Images from the original note were not included. [facility] Actinic Keratosis: After Your Visit Your Care Instructions Actinic keratosis is a condition that develops in sun-exposed skin. It is not skin cancer, but it can turn into skin cancer if it is not removed. Actinic keratoses, also called solar keratoses, are small red, brown, or skin-colored scaly patches. They are most common on the face, neck, hands, and forearms. Your doctor can remove these growths by freezing or scraping them off or by putting medicines on them. Follow-up care is a diaz part of your treatment and safety. Be sure to make and go to all appointments, and call your doctor if you are having problems. It's also a good idea to know your test results and keep a list of the medicines you take. How can you care for yourself at home? ?? If your doctor removes the growth, clean the area with soap and water 2 times a day unless your doctor gives you different instructions. Don't use hydrogen peroxide or alcohol, which can slow healing. ?? You may cover the wound with a thin layer of petroleum jelly, such as Vaseline, and a nonstick bandage. To prevent actinic keratosis ?? Always wear sunscreen on exposed skin. Make sure the sunscreen blocks ultraviolet rays (both UVA and UVB) and has a sun protection factor (SPF) of at least 15. Use it every day, even when it is cloudy. Some doctors may recommend a higher SPF, such as 30. ?? Wear long sleeves, a hat, and pants if you are going to be outdoors for a long time. ?? Avoid the sun between 10 a.m. and 4 p.m., the peak time for UV rays. ?? Do not use tanning booths or sunlamps. When should you call for help? Watch closely for changes in your health, and be sure to contact your doctor if: ?? The areas that were treated are red, drain pus, or have red streaks leading from them. ?? You see other growths that do not go away. ?? You do not get better as expected. Where can you learn more? Visit our health information library at http://[employer] You can also view health information on [email or web address], your personal patient account. Log in or sign up today. Enter L364 in the search box to learn more about Actinic Keratosis: After Your Visit. ?? [id number] [employer]. Care instructions adapted under license by [facility]. This care instruction is for use with your licensed healthcare professional. If you have questionsabout a medical condition or this instruction, always ask your healthcare professional. [employer] disclaims any warranty or liability for your use of this information. Content Version: 9.9.200071; Last Revised: December 22, 2012 documented in this encounter Progress Notes Hammer, Cy J, MD - 05/31/2014 2:08 PM EDT Problem: Follow up for repeat skin checkup. Shadi follows up after last being seen in March. At that time, I removed using shave C and D a BCCA from the right lateral canthus and a BCCA from the right lateral mandaen. I also treated a verruca vulgaris on the central forehead. Physical examination shows good healing of all sites without evidence for recurrence. He has some hypertrophic scarring on the anterior margin of the right lateral canthus BCCA site. 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 Otherwise skin examination of the chest, the back, hands, arms, forearms is benign. Assessment and Plan: History of BCCAs. a. No evidence of recurrence. b. Patient reassured. c. Reinforced sun avoidance precautions. d. Recommend that I see him again on a p.r.n. basis. He sees his PCP at least once a year, every November, and I would be happy to see Shadi back either at the patient's request or at the request of Dr. Das. documented in this encounter Plan of Treatment Upcoming Encounters Date Type Specialty Care Team Description 07/02/2022 Office Visit Vascular Surgery Jing Ghosh APRN [facility] VASCULAR SURGERY [place], [place] [address] (Wo bob) 09/02/2022 Clinical Support Dermatology Thai Lynn MD [facility] DR [address]ENNY [address] [place], [place] [address] (Wo bob) 09/02/2022 Procedure visit Dermatology Jace Lynn MD [facility] DR JENNY [facility]ILL[facility] [place], [place] [address] (Rebekah rojas) 09/05/2022 Appointment Cardiology Trinity Reid MD [facility] CARDIOLOGY [place], [place] [address] (Wo rk) 09/05/2022 Office Visit Cardiology Trinity Reid MD [facility] ER CARDIOLOGY [place], [place] [address] (Wo rk) documented as of this encounter Visit Diagnoses Diagnosis History of basal cell carcinoma - Primar y Personal history of other malignant neop lasm of skin documented in this encounter Care Teams Office Cashier Relationship Specialty Start Date End Date Bobby Das MD PCP - General 10/02/[address] [place] [address] [place] [phone] documented as of this encounter
--- OUTSIDE RECORDS SUMMARY | 2022-06-23 00:20 | XMS_ITS | Encounter Summary ---
:1940 Author Organization [place] [address] Care Team Providers Name Role Phone Bobby Das MD Primary Care Provider Encounter Details Date Type Department Care Team Description 12/13/2016 Telephone Pain Management [place] [phone] Social History Tobacco Use Types Packs/Day Years Used Date Current Some Day Smoker 1 50 Smokeless Tobacco: Never Used Sex Assigned at Date Recorded Not on file documented as of this encounter Miscellaneous Notes Telephone Encounter - Kourtney Hilliard - 12/13/2016 2:[address] Safety questions documented in this encounter Plan of Treatment Upcoming Encounters Date Type Specialty Care Team Description 07/02/2022 Office Visit Vascular Surgery Jing Ghosh, HIRAL [facility] DR VASCULAR SURGERY [place], [place] [address] (Wo rk) 09/02/2022 Clinical Support Dermatology Thai Lynn MD [facility] [address] [place], [place] [address] (Wo rk) 09/02/2022 Procedure visit Dermatology Jace Lynn MD [facility] [address] [facility] [place], [place] [address] (Wo rk) 09/05/2022 Appointment Cardiology Trinity Reid MD [facility] ER CARDIOLOGY [place], [place] [address] (Wo rk) 09/05/2022 Office Visit Cardiology Trinity Reid MD [facility] CARDIOLOGY [place], [place] [address] (Wo rk) documented as of this encounter Visit Diagnoses Not on filedocumented in this encounter Care Teams Clam Picker Relationship Specialty Start Date End Date Bobby Das MD PCP - General 10/02/[address] [place] [address] [place] [phone] documented as of this encounter
--- OUTSIDE RECORDS SUMMARY | 2022-06-23 00:20 | XMS_ITS | Encounter Summary ---
:1940 Author Organization [facility] [place] [address] Care Team Providers Name Role Phone Bobby Das MD Primary Care Provider Reason for Referral Diagnostic Test (Routine) - Specialty Diagnoses / Procedures Referred By Contact Refer red To Contact Radiology Diagnoses Chest pain, unspecified type Chronic abdominal pain Chano Rebolledo MD [facility] Rad Ct Scan Procedures CT Chest w Contrast CT Chest wo Contrast (Generic) [facility] [place] [address] [place] [address] Referral ID Status Reason Start Date Expiration Visits Visits Date Requested Authorized [id number] Specialty 12/13/2016 12/13/2017 1 1 Service Requested Diagnostic Test (Routine) - Closed Specialty Diagnoses / Procedures Referred By Contact Refer red To Contact Radiology Diagnoses Chest pain, unspecified type Chronic abdominal pain Chano Rebolledo MD [facility] Rad Ct Scan Procedures CT Abdomen & Pelvis w Contrast [facility] [place] [address] [place] [address] Referral ID Status Reason Start Date Expiration Date Visits V isits Requested Authorized [id number] Closed Specialty 12/13/2016 12/13/2017 1 1 Service Requested Reason for Visit Diagnostic Test (Routine) - Closed Specialty Diagnoses / Procedures Referred By Contact Refer red To Contact Radiology Diagnoses Chest pain, unspecified type Chronic abdominal pain Chano Rebolledo MD [facility] Rad Ct Scan Procedures CT Abdomen & Pelvis w Contrast [facility] [place] [address] [place] [address] Referral ID Status Reason Start Date Expiration Date Visits V isits Requested Authorized [id number] Closed Specialty 12/13/2016 12/13/2017 1 1 Service Requested Encounter Details Date Type Department Care Team Description 12/17/[address] Scan at [facility] Fanciullo, Chest pain, unspecified type ; [facility] Leonel Sullivan MD Chronic abdominal pain [address] [facility] [address] PAIN CLINIC [phone] [place] [address] Social History Tobacco Use Types Packs/Day Years Used Date Current Some Day Smoker 1 50 Smokeless Tobacco: Never Used Sex Assigned at Date Recorded Not on file documented as of this encounter Medications at Time of Discharge Medication Sig Dispensed Refills Start Date End Date CRESTOR 40 mg Tablet Take 40 mg by mouth 0 2015 daily. MULTIVITAMIN (MULTIPLE Take 1 tablet by 0 VITAMIN ORAL) mouth daily. fluticasone (FLONASE) 50 1 spray by Each 0 09/18/2018 mcg/actuation nasal spray Nare route daily. documented as of this encounter Plan of Treatment Upcoming Encounters Date Type Specialty Care Team Description 07/02/2022 Office Visit Vascular Surgery Jing Ghosh, HIRAL [facility] VASCULAR SURGERY [place], [place] [address] (Wo rk) 09/02/2022 Clinical Support Dermatology Thai Lynn MD [facility] DR JENNY BILLY-DERMAT [place], [place] [address] (Wo rk) 09/02/2022 Procedure visit Dermatology Jace Lynn MD [facility] DR JENNY BILLY-DERMAT [place], [place] [address] (Wo rk) 09/05/2022 Appointment Cardiology Trinity Reid MD [facility] ER DR WARNER [place], [place] [address] (Wo rk) 09/05/2022 Office Visit Cardiology Trinity Reid MD [facility] [place], [place] [address] (Wo rk) documented as of this encounter Procedures Procedure Name Priority Date/Time Associated Diagnosis Comme nts CT ABDOMEN AND Routine 12/17/2016 12:36 PM Chest pain, Result s for this PELVIS W CONTRAST EST unspecified ty pe procedure are in Chronic abdominal the result s pain section. CT CHEST W CONTRAST Routine 12/17/2016 12:36 PM Chest pain, R esults for this EST unspecified type procedure are in Chronic abdominal the result s pain section. CT SCAN (SCAN) 09/09/2016 12:00 AM Result s for this EDT procedure are i n the results section. documented in this encounter Results CT Chest w Contrast (12/17/2016 12:36 PM EST) Anatomical Region Laterality Modality Chest Computed Tomography Specimen (Source) Anatomical Location Collection Method / Collectio n Time Received Time / Laterality Volume Impressions 12/17/2016 4:06 PM EST 1. ??Lingular pulmonary nodule measuring 6 mm, likely intrapulmonary lymph node. As per Fleischner Society recommendation s for management of solid nodules, follow-up chest CT is recommended in 12 months for low risk patients. For patients with a smoking history or other risk factors for lung cancer, initial follow-up in 6-12 months is recommended. ?? 2. ??L4 vertebral body compression fract ure of indeterminate age. Diffusely decreased osseous mineralization. 3. ??Dense sclerosis in bilateral femora l heads, possible early avascular necrosis. 4. ??Nonobstructing bilateral renal calc yolie. 5. ??Enlarged prostate. I have personally reviewed the image(s) and the residents interpretation and agree with the findings, Sharmila quezada 12/17/2016 4:06 PM Narrative 12/17/2016 4:06 PM EST EXAMINATION: CT CHEST ABDOMEN AND PELVIS W CONTRAST CLINICAL HISTORY: Chest/abdominal pain, rule out malignancy TECHNIQUE: Helical CT of the chest, abdo men, and pelvis was performed following intravenous administration of 110 ml of Omnipaque 350 and oral contrast. COMPARISON: None FINDINGS: Chest Lungs and large airways: Scattered mild atelectasis. 6 mm solid nodule in the lingula, likely an intrapulmonary lymph node. No other abnormal opacities. Pleura: No effusion Heart: Prior median sternotomy. Normal c ardiac size. No pericardial effusion. Mediastinum and markell: No lymphadenopathy Abdomen/pelvis Liver: Within normal limits. Bile ducts: Normal caliber Gallbladder: No calcified gallstones. No rmal caliber wall. Pancreas: Normal Spleen: Normal Adrenals: Normal Kidneys: Bilateral nonobstructing calcul i. No hydronephrosis. 14 mm exophytic simple cyst arising from the right upper pole. Lymph nodes: No enlarged abdominal or pe lvic lymph nodes Bowel: Normal caliber, no wall thickenin g Peritoneum and mesentery: No ascites or free air, no fluid collection Reproductive organs: Enlarged prostate w ith coarse calcifications. Unremarkable seminal vesicles. Osseous structures: Compression deformit y of the L4 vertebral body without displaced fracture fragments. Diffusely decreased osseous mineralization. Bilateral acetabular and femoral head os teophytes. Dense, serpiginous sclerotic foci in the bilateral femoral heads deep to the weightbearing surface. Procedure Note Sharmila Llanos MD - 12/18/2016Formatt ing of this note might be different from the original. EXAMINATION: CT CHEST ABDOMEN AND PELVIS W CONTRAST CLINICAL HISTORY: Chest/abdominal pain, rule out malignancy TECHNIQUE: Helical CT of the chest, abdo men, and pelvis was performed following intravenous administration of 110 ml of Omnipaque 350 and oral contrast. COMPARISON: None FINDINGS: Chest Lungs and large airways: Scattered mild atelectasis. 6 mm solid nodule in the lingula, likely an intrapulmonary lymph node. No other abnormal opacities. Pleura: No effusion Heart: Prior median sternotomy. Normal c ardiac size. No pericardial effusion. Mediastinum and markell: No lymphadenopathy Abdomen/pelvis Liver: Within normal limits. Bile ducts: Normal caliber Gallbladder: No calcified gallstones. No rmal caliber wall. Pancreas: Normal Spleen: Normal Adrenals: Normal Kidneys: Bilateral nonobstructing calcul i. No hydronephrosis. 14 mm exophytic simple cyst arising from the right upper pole. Lymph nodes: No enlarged abdominal or pe lvic lymph nodes Bowel: Normal caliber, no wall thickenin g Peritoneum and mesentery: No ascites or free air, no fluid collection Reproductive organs: Enlarged prostate w ith coarse calcifications. Unremarkable seminal vesicles. Osseous structures: Compression deformit y of the L4 vertebral body without displaced fracture fragments. Diffusely decreased osseous mineralization. Bilateral acetabular and femoral head os teophytes. Dense, serpiginous sclerotic foci in the bilateral femoral heads deep to the weightbearing surface. IMPRESSION 1. Lingular pulmonary nodule measuring 6 mm, likely intrapulmonary lymph node. As per Fleischner Society recommendation s for management of solid nodules, follow-up chest CT is recommended in 12 months for low risk patients. For patients with a smoking history or other risk factors for lung cancer, initial follow-up in 6-12 months is recommended. 2. L4 vertebral body compression fractur e of indeterminate age. Diffusely decreased osseous mineralization. 3. Dense sclerosis in bilateral femoral heads, possible early avascular necrosis. 4. Nonobstructing bilateral renal calcul i. 5. Enlarged prostate. I have personally reviewed the image(s) and the residents interpretation and agree with the findings, Sharmila quezada 12/17/2016 4:06 PM Leonel Orozco MD IM CT ORDERABLES CT Abdomen & Pelvis w Contrast (12/17/2016 12:36 PM EST) Anatomical Region Laterality Modality Abdomen, Pelvis Computed Tomography Specimen (Source) Anatomical Location Collection Method / Collectio n Time Received Time / Laterality Volume Impressions 12/18/2016 8:13 AM EST 1. ??Lingular pulmonary nodule measuring 6 mm, likely intrapulmonary lymph node. As per Fleischner Society recommendation s for management of solid nodules, follow-up chest CT is recommended in 12 months for low risk patients. For patients with a smoking history or other risk factors for lung cancer, initial follow-up in 6-12 months is recommended. ?? 2. ??L4 vertebral body compression fract ure of indeterminate age. Diffusely decreased osseous mineralization. 3. ??Dense sclerosis in bilateral femora l heads, possible early avascular necrosis. 4. ??Nonobstructing bilateral renal calc yolie. 5. ??Enlarged prostate. I have personally reviewed the image(s) and the residents interpretation and agree with the findings, Sharmila quezada 12/17/2016 4:06 PM Narrative 12/18/2016 8:13 AM EST EXAMINATION: CT CHEST ABDOMEN AND PELVIS W CONTRAST CLINICAL HISTORY: Chest/abdominal pain, rule out malignancy TECHNIQUE: Helical CT of the chest, abdo men, and pelvis was performed following intravenous administration of 110 ml of Omnipaque 350 and oral contrast. COMPARISON: None FINDINGS: Chest Lungs and large airways: Scattered mild atelectasis. 6 mm solid nodule in the lingula, likely an intrapulmonary lymph node. No other abnormal opacities. Pleura: No effusion Heart: Prior median sternotomy. Normal c ardiac size. No pericardial effusion. Mediastinum and markell: No lymphadenopathy Abdomen/pelvis Liver: Within normal limits. Bile ducts: Normal caliber Gallbladder: No calcified gallstones. No rmal caliber wall. Pancreas: Normal Spleen: Normal Adrenals: Normal Kidneys: Bilateral nonobstructing calcul i. No hydronephrosis. 14 mm exophytic simple cyst arising from the right upper pole. Lymph nodes: No enlarged abdominal or pe lvic lymph nodes Bowel: Normal caliber, no wall thickenin g Peritoneum and mesentery: No ascites or free air, no fluid collection Reproductive organs: Enlarged prostate w ith coarse calcifications. Unremarkable seminal vesicles. Osseous structures: Compression deformit y of the L4 vertebral body without displaced fracture fragments. Diffusely decreased osseous mineralization. Bilateral acetabular and femoral head os teophytes. Dense, serpiginous sclerotic foci in the bilateral femoral heads deep to the weightbearing surface. Procedure Note Sharmila Llanos MD - 12/18/2016Formatt ing of this note might be different from the original. EXAMINATION: CT CHEST ABDOMEN AND PELVIS W CONTRAST CLINICAL HISTORY: Chest/abdominal pain, rule out malignancy TECHNIQUE: Helical CT of the chest, abdo men, and pelvis was performed following intravenous administration of 110 ml of Omnipaque 350 and oral contrast. COMPARISON: None FINDINGS: Chest Lungs and large airways: Scattered mild atelectasis. 6 mm solid nodule in the lingula, likely an intrapulmonary lymph node. No other abnormal opacities. Pleura: No effusion Heart: Prior median sternotomy. Normal c ardiac size. No pericardial effusion. Mediastinum and markell: No lymphadenopathy Abdomen/pelvis Liver: Within normal limits. Bile ducts: Normal caliber Gallbladder: No calcified gallstones. No rmal caliber wall. Pancreas: Normal Spleen: Normal Adrenals: Normal Kidneys: Bilateral nonobstructing calcul i. No hydronephrosis. 14 mm exophytic simple cyst arising from the right upper pole. Lymph nodes: No enlarged abdominal or pe lvic lymph nodes Bowel: Normal caliber, no wall thickenin g Peritoneum and mesentery: No ascites or free air, no fluid collection Reproductive organs: Enlarged prostate w ith coarse calcifications. Unremarkable seminal vesicles. Osseous structures: Compression deformit y of the L4 vertebral body without displaced fracture fragments. Diffusely decreased osseous mineralization. Bilateral acetabular and femoral head os teophytes. Dense, serpiginous sclerotic foci in the bilateral femoral heads deep to the weightbearing surface. IMPRESSION 1. Lingular pulmonary nodule measuring 6 mm, likely intrapulmonary lymph node. As per Fleischner Society recommendation s for management of solid nodules, follow-up chest CT is recommended in 12 months for low risk patients. For patients with a smoking history or other risk factors for lung cancer, initial follow-up in 6-12 months is recommended. 2. L4 vertebral body compression fractur e of indeterminate age. Diffusely decreased osseous mineralization. 3. Dense sclerosis in bilateral femoral heads, possible early avascular necrosis. 4. Nonobstructing bilateral renal calcul i. 5. Enlarged prostate. I have personally reviewed the image(s) and the residents interpretation and agree with the findings, Sharmila quezada 12/17/2016 4:06 PM Leonel Orozco MD [facility] CT ORDERABLES SCAN DOC: CT SCAN (09/09/2016 12:00 AM EDT) Narrative This result has an attachment that is no t available. Scanning Provider MEDIA MGR SCAN EXT ORDR/RSLT documented in this encounter Visit Diagnoses Diagnosis Chest pain, unspecified type Chronic abdominal pain Abdominal pain, unspecified site documented in this encounter Administered Medications Inactive Administered Medications - up to 3 most recent administrations Medication Order MAR Action Action Date Dose Rate Site iohexol (OMNIPAQUE) 350 mg/mL Given 12/17/2016 12:37 PM EST 38,5 00 mg solution 38,500 mg 38,500 mg (110 mL), Intravenous, ONCE PRN, 1 dose, Starting on Fri12/17/16 at 1211, Until Fri12/17/16 at 1237, Per Protocol, Warning Vesicant/Irritant Medication , Routine iohexol (OMNIPAQUE) radiology oral prep (50 Given 05/2017 12:37 PM EST 50 mLs mL of oral contrast) 50 mL 50 mL, Oral, ONCE PRN, per protocol, Starting on Fri12/17/16 at 1211, 1 dose, Until Fri12/17/16 at 1237 documented in this encounter Care Teams Immigration Specialist Relationship Specialty Start Date End Date Bobby Das MD PCP - General 10/02/[address] [place] [address] [place] [address] documented as of this encounter
--- OUTSIDE RECORDS SUMMARY | 2022-06-23 00:20 | XMS_ITS | Encounter Summary ---
:1940 Author Organization [facility] [place] [address] Care Team Providers Name Role Phone Bobby Das MD Primary Care Provider Reason for Visit Reason Comments Basal Cell Carcinoma Encounter Details Date Type Department Care Team Description 08/08/2015 [facility]basal cell Road [facility] carcinoma of skin) [address] [place] [address] [facility] [place] [place] [address] Social History Tobacco Use Types Packs/Day Years Used Date Current Some Day Smoker 1 50 Smokeless Tobacco: Never Used Sex Assigned at Date Recorded Not on file documented as of this encounter Last Filed Vital Signs Vital Sign Reading Time Taken Comments Blood Pressure 101/64 08/08/2015 1:49 PM EDT Pulse 84 08/08/2015 1:49 PM EDT Temperature - - Respiratory Rate 18 08/08/2015 1:49 PM EDT Oxygen Saturation - - Inhaled Oxygen Concentration - - Weight - - Height - - Body Mass Index - - documented in this encounter Patient Instructions Patient InstructionsJeni Franco LPN - 08/08/2015 2:02 PM EDT Mohs Micrographic Surgery Date: Dear: You have been scheduled for Mohs Surgery with Dr. Leo Solo on: Mohs surgery is a technique to treat and remove skin cancers under complete microscopic control. It offers the best cure rate, but, because of its complexity, is reserved for those cancers where other treatments have failed or are less likely to result in a cure. It is also used for skin cancers located in critically important cosmetic areas like the nose, ears, or eyelids. Pre-Surgery Instructions: ??? Stop or decrease smoking 5 days prior to surgery. ??? Take ALL medications as directed by your Primary Care Physician on the morning of your surgery. You will be required to update your INR no greater than one week prior to your procedure if you are taking warfarin (Coumadin). ??? Discontinue Vitamin E and any herbal remedies as soon as you receive this handout. ??? Discontinue alcohol and alcohol containing medications (such as NyQuil) 5 days prior to surgery. ??? Purchase wound care supplies prior to surgery. Morning of Surgery Instructions: ??? You should eat a normal breakfast and continue drinking fluids - if caffeine makes you nervous or jittery, please refrain from consuming caffeine containing products on the morning of surgery. If you are scheduled for reconstructive surgery in the Operating Room on the same day as your Mohs procedure, follow the guidelines given to you by the Same Day Surgery Unit regarding food/fluid intake. ??? Take ALL routine medications on schedule unless otherwise instructed. Please bring all medication with you on the day of surgery. ??? Wear comfortable, warm, loose-fitting clothing - a button down shirt is preferred ??? Do not wear perfume, cologne, or makeup ??? Do not remove dentures ??? Shower and shampoo your hair before surgery as your initial bandage may have to remain dry for up to 48 hours. Supplies you will need to purchase prior to your surgery: ??? Clean cotton swabs (Q-tips) ??? A tube of Aquaphor or white petrolatum (avoid jars) -Antibiotic ointment is not recommended as many patients are now becoming allergic to topical antibiotics. An allergic reaction can turn the skinred with swelling and weeping, mimicking an infection. New data has come out stating that clean surgi felicitas wounds do not need antibiotic ointment and should be dressed with plain ointment. ??? Non-stick gauze (Telfa pads) or Band-Aids - It is good to have some non- stick bandages that can be cut and taped over the wound. We use a brand called Telfa but any non-stick bandage will work. Askyour pharmacist what is available in the store. ??? Paper Tape - It will allow the bandage to stick, but will not harm the skin. It is usually well tolerated by patients that have tape allergies. One roll is all you will need. Some patients require bandaging for 1-2 weeks, while others may require bandages for longer periods of time. We cannot determine this prior to your surgery; therefore, you should have at least one week???s worth of supplies. What to Expect the Day of Surgery: Briefly, the technique is performed as follows: The location of your skin cancer is identified and numbed with a local anesthetic. All visible tumor is removed as well as a thin margin of surrounding skin. Bleeding is stopped and a bandage is placed over the wound. The tissue is then taken to the lab,in our office, where it is processed, stained and placed on a slide. This process will take approximately 60-90 minutes. The physician will then look at the slides under a microscope to identify any remaining tumor. If there is any tumor visible, you will be brought back into the procedure room and a second layer of tissue will be removed. The process continues until no further tumor is identified. On average, patients have 2-3 layers taken, depending on the size and depth of the tumor. On the day of our surgery, the physician will discuss with you options for wound reconstruction and healing. Reconstructive surgery cannot be predetermined as it depends on the size and depth of the wound after removal of the lesion as well as each individual???s needs. Because we do not know how extensive your skin cancer is, you may be here for the majority of the day. It is a good idea to bring a book, or other materials to keep you occupied. Our facility does not offer a guest [employer] network at this time. We also recommend you bring a lunch or light snack. There are vending machines available with limited food options, as well as complimentary snack foods but no cafeteria or restaurants. For your comfort, we recommend that you dress in layers. We recommend that you have someone with you to keep you company, and unless otherwise specified we require that you have a cattle driver, as surgery can be stressful and tiring. If you are being transported from a correction or other similar facility, we request that someone stay with you during this appointment. We are located in the [facility] at [place], [place]. Please refer to the [facility] website for detailed driving directions ([email or web address]). When you arrive, please park in the upper parking lot. When you enter the building, go to the third floor, the sales receptionist area is located on the left (follow signs for Dermatology). What to expect after surgery: ??? Pain: Most people are concerned about pain. You will experience remarkably little discomfort after your surgery. Due to the potential to cause bleeding, we request that you do not take Aspirin or NSAIDS (ie. Ibuprofen, Aleve) for pain control. You may use acetaminophen (Tylenol). ??? Bleeding: A small number of patients will experience some bleeding post operatively. This bleeding can usually be controlled by pressure. If the bleeding persists after 15 minutes of continuous pressure, repeat for another 15 minutes. If this fails, contact our office at [phone] (after 5PM please call [phone] and ask for the Dip Painter boring machine operator production). Avoid bending over, heavy lifting (no greater than 10 pounds), straining, and do not drink alcohol for 2 days post operatively as this may stimulate bleeding. ??? Potential Complications: There are some complications that may occur after Mohs Surgery. A smallred area may develop surrounding your wound - this is normal and does not necessarily indicate infection. However, if the redness widens over a 2-3 day period, the wound begins to have drainage, or you experience fever or chills, notify our office immediately. Swelling and bruising are very common following Mohs surgery, particularly when it is performed around the eyes. It is common for one or both eyes to swell shut 1-3 days post operatively. At times, the area surrounding the operative site will be numb to touch. This area of numbness may persist for several months or longer, and in instances may be permanent. On rare occasions, there can be damage to the motor nerves which can result in permanent paralysis of affected muscles. Although every effort will be made to offer the best possible cosmetic results, scar formation is part of the healing process, and you will have a permanent scar. The scar can be minimized by the proper care of your wound. We will discuss wound care with you in detailat the time of your appointment. Please feel free to call the office if you have any questions about the procedure or the medicationsyou are taking. Our office phone number is [phone]. documented in this encounter Progress Notes Leo Solo MD - 08/08/2015 1:50 PM EDT MOHS SURGICAL CONSULT Chief Complaint: Basal cell carcinoma History of Present Illness: Referring Physician: Dr. Zheng, [facility] (07/03/15) Tumor type: BCC Location of Skin Cancer: Right sabianism Duration of Presence: 1 year Previous Treatment: LN2, ED&C Symptoms: [] Pain [] Bleeding [x] Crusting [] Other [] None Previous History of Skin Cancer: [] None [x] List: Actinic keratosis Family History of Skin Cancer [] None [] Melanoma [] Basal cell [] Squamous cell [] Other: Review of Systems: Check all that apply regarding other health problems Skin Hematological Eyes/Ears/Nose/Throat [x] Normal [x] Normal [] Normal [] Thick scars/keloids [] Anemia [] Glaucoma [] Poor wound healing [] Bleeding problems [] Hearing aid [] Herpes infection/cold sores [] Enlarged lymph nodes [] Cosmetic surgery [] Other [] Other [x] Other: hx of cataracts, poor vision in right eye Cardiovascular Respiratory GI/Renal [] Normal [x] Normal [x] Normal [] Angina (chest pain) [] Emphysema [] Colitis [] Heart attack (Date ) [] COPD [] Stomach ulcer [] Artificial heart valve [] Asthma [] Kidney disease [] Pacemaker/defib [] Other [] Other [] HTN [x] Other: Mitral valve prolapse - Valve repair 2000 Musculoskeletal Endocrine Infections [x] Normal [x] Normal [x] None [] Arthritis [] Thyroid disease [] HIV/AIDS [] Artificial joint (Year) [] Diabetes [] Hepatitis (type) [] Other [] Other [] Tuberculosis [] Other Neurological Psychiatric [x] Normal [x] Normal [] Stroke [] Anxiety [] Seizures [] Depression [] Mental status change [] Other [] Other Do you take antibiotics prior to having a dental or any other procedure: None Medical Problems (not listed above): Patient Active Problem List Diagnosis Code ??? GIB (gastrointestinal bleeding) 578.9 ??? MVP (mitral valve prolapse) s/p repair 424.0 ??? Hypertriglyceridemia 272.1 ??? Adhesive capsulitis of L shoulder 726.0 ??? Alcohol use V49.89 ??? Basal cell carcinoma 173.91 ??? 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 AK (actinic keratosis) 702.0 ??? History of basal cell carcinoma V10.83 Surgical history (not listed above): No past surgical history on file. Physical Limitations: None Do You Take [] aspirin [] Plavix [] Coumadin [] Other blood thinners/anti- platelet medications [x] None List Other Medications (prescription and over the counter including vitamins): Current Outpatient Prescriptions Medication Sig Dispense Refill ??? rosuvastatin (CRESTOR) 10 mg tablet Take 10 mg by mouth daily. ??? fluticasone (FLONASE) 50 mcg/actuation nasal spray 1 spray daily. ??? MULTIVITAMIN (MULTIPLE VITAMIN ORAL) Take 1 tablet by mouth daily. No current facility-administered medications for this visit. Medication Allergies: Allergies Allergen Reactions ??? 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 Skin: Limited examination of right sabianism reveals a 5 mm erythematous papule. Assessment and Plan 1. BCC, right sabianism Reviewed treament options including wide local excision, Mohs micrographic surgery, electrodesiccation and curettage, and radiation therapy. Reviewed reconstruction options including second intention healing, linear repair, local flap, full thickness graft, and repair by Plastic Surgery or any other physician of the patient's choosing. The patient has elected to proceed with Mohs surgery. The patient has elected to have the post-Mohs defect repaired by us, and understands and acknowledges the risk of scarring. JENI FRANCO LPN has performed the documentation for this encounter in the presence of and acting as a scribe for Dr. Solo. I performed the above scribed service and agree with the accuracy of the documentation in this encounter. Leo Solo MD documented in this encounter Plan of Treatment Upcoming Encounters Date Type Specialty Care Team Description 07/02/2022 Office Visit Vascular Surgery Jing Ghosh, TRAILER TRUCK DRIVER [facility] VASCULAR SURGERY [place], [place] [address] (Wo rk) 09/02/2022 Clinical Support Dermatology Thai Lynn MD [facility] DR [address] [place], [place] [address] (Wo rk) 09/02/2022 Procedure visit Dermatology Jace Lynn MD [facility] DR [address] [place], [place] [address] (Wo rk) 09/05/2022 Appointment Cardiology Trinity Reid MD [facility] CARDIOLOGY [place], [place] [address] (Wo rk) 09/05/2022 Office Visit Cardiology Trinity Reid MD [facility] CARDIOLOG[facility] [place], [place] [address] (Wo rk) documented as of this encounter Visit Diagnoses Diagnosis BCC (basal cell carcinoma of skin) Basal cell carcinoma of skin, site unspe cified documented in this encounter Care Teams Magnesium Mill Operator Relationship Specialty Start Date End Date Bobby Das MD PCP - General 10/02/[address] [place] [address] [place] [id number] documented as of this encounter
--- OUTSIDE RECORDS SUMMARY | 2022-06-23 00:20 | XMS_ITS | Encounter Summary ---
:1940 [place] [address] Care Team Providers Name Role Phone Bobby Das MD Primary Care Provider Reason for Visit Reason Comments Wound Check Encounter Details Date Type Department Care Team Description 10/25/2015 Clinical Support Dermatology at Christine Gonzalez MD Follow up [facility] [address] [facility] [place] [address] [place] [address] [phone] (Wo rk) Social History Tobacco Use Types Packs/Day Years Used Date Current Some Day Smoker 1 50 Smokeless Tobacco: Never Used Sex Assigned at Date Recorded Not on file documented as of this encounter Progress Notes Leo Solo MD - 10/25/2015 1:01 PM EST CC: Wound check HPI: Patient is a 75 y.o. male with history of basal cell carcinoma, right anabaptist, s/p Mohs, repaired by transposition flap on who presents for wound check. Denies complications. States when he blinks he can feel the scar tissue. ROS: Otherwise well. No other skin complaints. Exam: General: No acute distress Skin: Limited examination of right anabaptist shows a well-healed flap with hypertrophy at the edge. Assessment and Plan 1. Basal cell carcinoma, right anabaptist, s/p Mohs, repaired by transposition flap Kenalog 10mg/mL injected intralesionally, total 0.03 mL. Discussed indication for this procedure andpotential side effects including ulceration and skin atrophy. Follow up as needed. Estefania Dupree LPN, am documenting this encounter acting as a scribe for and in the presence of Dr. Solo. I performed the above scribed services and agree with the accuracy of the documentation in this encounter. Leo Solo MD documented in this encounter Plan of Treatment Upcoming Encounters Date Type Specialty Care Team Description 07/02/2022 Office Visit Vascular Surgery Jing Ghosh, HATCH SUPERVISOR [facility] VASCULAR SURGERY [place], [place] [address] (Wo rk) 09/02/2022 Clinical Support Dermatology Thai Lynn MD [facility] DR [address]ENNY [address]ILLY-DERMAT [place], [place] [address] (Wo rk) 09/02/2022 Procedure visit Dermatology Jace Lynn MD [facility] DR [address]ILL[address] [place], [place] [address] (Wo rk) 09/05/2022 Appointment Cardiology Trinity Reid MD [facility] CARDIOLOGY [place], [place] [address] (Wo rk) 09/05/2022 Office Visit Cardiology Trinity Reid MD [facility] CARDIOLOGY [place], [place] [address] (Wo rk) documented as of this encounter Visit Diagnoses Diagnosis Follow up documented in this encounter Care Teams Dolphin Trainer Relationship Specialty Start Date End Date Bobby Das MD PCP - General 10/02/[address] [place] [address] [place] [id number] documented as of this encounter
--- OUTSIDE RECORDS SUMMARY | 2022-06-23 00:20 | XMS_ITS | Encounter Summary ---
:1940 Author Organization [facility] [place] [address] Care Team Providers Name Role Phone Bobby Das MD Primary Care Provider Reason for Visit Reason Comments Basal Cell Carcinoma Encounter Details Date Type Department Care Team Description 08/24/2015 Procedure visit Dermatology at [facility] Leo Solo BCC (basal cell Road MD Delores carcinoma of skin) [address] [facility] [id number] [facility] [phone] [address] [place] [address] Social History Tobacco Use Types Packs/Day Years Used Date Current Some Day Smoker 1 50 Smokeless Tobacco: Never Used Sex Assigned at Date Recorded Not on file documented as of this encounter Last Filed Vital Signs Vital Sign Reading Time Taken Comments Blood Pressure 134/65 08/24/2015 9:07 AM EDT Pulse 84 08/24/2015 9:07 AM EDT Temperature - - Respiratory Rate 19 08/24/2015 9:07 AM EDT Oxygen Saturation - - Inhaled Oxygen Concentration - - Weight - - Height - - Body Mass Index - - documented in this encounter Patient Instructions Patient InstructionsEtta Burciaga LPN - 08/24/2015 3:23 PM EDT General Post-Operative Instructions Do not drink alcohol or take any medications containing aspirin, ibuprofen, or Vitamin E for the first two days after surgery unless it has been prescribed by a physician. These may increase the changeof bleeding. Do not smoke for a minimum of 5 days after surgery. Do not get your bandage wet. Avoid public pools and hot tubs As a rule, no exercise is permitted for 7 days. Avoid heavy lifting or any activity that will pull or strain the wound for 3 weeks minimum. Certain surgeries will require longer periods off from exercise as instructed by your doctor. Potential Complications Pain: Most patients have little or no pain. If your wound hurts, apply an ice pack for 15 minutes out of every hour until bedtime. Ice compresses should be done OVER the pressure bandage. Do not apply ice directly on the skin. Ice should be placed in a plastic bag, then wrapped in a towel and applied to the bandaged wound. A bag of frozen peas wrapped in a towel also works well. If your wound still hurts, you can take Tylenol 500 mg every 4-6 hours. Increasing pain, or pain notrelieved by Tylenol, should be reported to our office. Infection: Infection is not common when the wound is well cared for. Craig drainage or slight yellow film on your bandage or open wound is normal and is not an infection. It is also normal for the edgesof the wound to be pink or red, but redness should not spread out beyond the wound edges. If you notice any of these signs of infections, please call the clinic. ??? Increased pain or swelling around the wound ??? Redness spreading out from the wound ??? Green, thick, or foul smelling wound drainage ??? Fever or chills Bleeding: It is normal to see a small amount of blood on the pressure bandage when you remove it. Ifblood leaks out of the bandage within the first 48 hours, hold firm pressure directly over the top of the bandage without removing it for 15 minutes. If bleeding does not stop, hold pressure for another 15 minutes. If bleeding continues, call our office immediately or go to your local urgent care or emergency room. If blood accumulates under the sutured area, this is called a hematoma. Your wound will become swollen and very hard to the touch. You may experience increasing amounts of pain. This requires attention, and our office should be notified. Swelling and Bruising: These side effects are fairly common, but usually resolve in 2-3 weeks. Areasof the mouth and eye can last longer. Swelling and bruising can be reduced by applying an ice pack over the dressing for 15 minutes out of every hour for the rest of the day of surgery. Swelling around the eyes and neck are normal if you have had surgery to the forehead, eye area, nose, or cheeks. In fact, one or both eyes may swell shut. Swelling will be worse in the morning and improve during the day. If your wound is on your face, head or neck: ??? Sleep with your head raised on 2 pillows to reduce swelling ??? Do no bend over with your head lower then the level of your heart. Bend at the knees and not thewaist. If your wound is on your arm or leg: ??? Keep your arm or leg raised above your heart as much as you can, such as putting your leg on a pillow then lying down, particularly for the first 48 hours. This will help prevent swelling and promote healing. Wounds on the arm or leg may heal more slowly than other areas. ??? Use compression stocking or sharyn wrap if instructed to do so. Scarring: There is always some scarring from any wound. Some people may have thickened scars, but these often flatten out in 3-6 months. Occasionally injections are used to help flatten thick scars. Time improves most scars. Wound healing actually takes 1-2 years before it is completely finished. Cover-up makeup may be used after the wound is healed. Other questions or concerns? Please do not hesitate to contact us. During regular business hours youcan call the clinic at . After 5PM and on weekends, please call the hospital number and ask for the Director Of Restaurant recreation therapy director. Wound Care for Sutured Wounds You should start wound care on ____Friday . Keep your dressing clean and dry until then. Clean your wound once a day until the sutures are removed. Supplies you will need: ??? Clean cotton swabs (Q-tips) ??? Vaseline or white petrolatum ??? Non-stick gauze (telfa pads) or band aids ??? Tape Care of the Wound 1. Assemble all supplies prior to dressing change 2. Wash your hands well with soap and water 3. Take off the old dressing. If it sticks, wet the edges of the dressing with water, or remove it in the shower. 4. Re-wash hands 5. Shower once a day with the bandage off, or clean the area under running tap water. Lather gently with soap and water, then rinse and blot dry. 6. Apply Vaseline (white petrolatum) or Aquaphor in a thin layer over the suture line. You may use aclean cotton swab to apply the ointment, rolling the swab gently over the wound. 7. Cover with a non-stick gauze thick enough to absorb any drainage and protect the wound. Skin near the surgery site may appear and feel tight. This relaxes in time. A scar is strong at 30 days, but not mature for 12 or more months. Stitches below the skin will be absorbed by the body within 2-3 months. Sometimes a stitch works itsway up through the skin. This is not necessarily a problem. If you have any questions about this, please call. If you need any help or have any questions, please call our clinic at . After 5PM and on weekends, please call the hospital number and ask for the Director Of Restaurant recreation therapy director. documented in this encounter Progress Notes Leo Solo MD - 08/24/2015 3:25 PM EDT Operative Report Patient name: Koko Zamora : 1940 Date: 08/24/2015 Staff Surgeon: Leo Solo MD, PhD Study Hall Supervisor I: Cassy Jacobson, Yolanda Verdin, Etta Burciaga, Gloria Culver MD Balloon Design Printer: Kourtney Cabrera Pre-operative diagnosis: Basal cell carcinoma Post-operative diagnosis: Basal cell carcinoma Location: Right buddhism Procedure: Mohs micrographic surgery Indication for Mohs micrographic surgery: Critical anatomic location Stages: 2 Final defect size: 3.6 x 2.0 cm Stage I The nature and purpose of the procedure, associated risks, possible consequences and complications,and alternative forms of treatment were explained in detail. Informed consent and permission to takephotographs were obtained. The site was confirmed with the patient/authorized insurance service representative/referring physician and a pre-operative time-out was conducted with no unresolved discrepancies noted. Localanesthesia was obtained with a buffered solution of 1% lidocaine with 1:100,000 epinephrine. The surgical site was prepped and draped in the usual sterile manner. Clinically apparent tumor was removed by excision with clinical margins and sent for step sectioning. With all visible gross tumor completely excised, the borders of the tumor were excised as a complete layer 2-3mm in thickness. Hemostasis was achieved by electrocoagulation. The excised tissue was oriented and divided into 4 sections, chromacoded, and submitted for frozen sections. The patient tolerated the procedure well and without complications. On microscopic evaluation of the frozen sections, residual tumor was identified on section 4. Stage II The surgical site was re-anesthetized with 1% lidocaine with 1:100,000 epinephrine, re-prepped and redraped in a sterile manner. The residual tumor was re-excised as a complete layer 2-3mm in thickness. Hemostasis was achieved with electrocoagulation. The tissue was oriented and divided into 1 sections, chromacoded, and submitted for frozen sections. The patient tolerated the procedure well and without complications. On microscopic evaluation of the frozen sections, no residual tumor was identified on the deep or outer border of the sections. The final size of the defect after complete tumor removal was 3.6 x 2.0 cm, extending to muscle. Leo Solo MD, PhD Repair Operative Report Patient name: Koko Zamora : 1940 Date: 08/24/2015 Staff Surgeon: Leo Solo MD, PhD Study Hall Supervisor I: Yolanda Rivera, Estefania Welch Clinical Diagnosis: 3.6 x 2.0 cm surgical defect secondary to Mohs microscopically controlled excision of basal cell carcinoma Location: Right buddhism Procedure: Transposition flap repair Due to the size and location of the defect resulting from the complete removal of the tumor, the postoperative risk of hemorrhage, infection, and the possibility of serious deformity from scarring, and in order to restore proper function and prevent loss of function, the defect was closed. The nature and purpose of the procedure, associated risks, possible consequences, complications andalternative methods of treatment were explained to the patient in detail. An informed consent was obtained. Local anesthesia was obtained with a buffered solution of 1-% lidocaine with 1:100,000 epinephrine. The surgical site was prepped and draped in the usual sterile manner. The edges of the defect were deepithelialized with a scalpel blade. A transposition flap was designed adjacent to the defect.The flap borders were incised down to the dermal subcutaneous junction and the flap was undermined. Hemostasis was achieved with electrocoagulation. The deep tissues of both the flap and secondary defect were closed with 5-0 Monocryl sutures. The epidermal edges were opposed with 5-0 Prolene sutures. Redundant tissue was removed as needed and closed in a similar manner. The resulting closure measured 4.0 x 4.5 cm. There was minimal to no distortion to surrounding anatomic structures. The surgical site was cleaned and covered with white petrolatum and gauze pressure dressing. The patient tolerated the procedure well and without complications and was given both verbaland written instructions on postoperative wound care. Follow up in one week for suture removal. The patient was discharged in good condition. I performed the entire procedure. Leo Solo MD, PhD documented in this encounter Plan of Treatment Upcoming Encounters Date Type Specialty Care Team Description 07/02/2022 Office Visit Vascular Surgery Jing Ghosh APRN [facility] VASCULAR SURGERY [place], [place] [address] ([facility]) 09/02/2022 Clinical Support Dermatology Thai Lynn MD [facility] [address] [place], [place] [address] ([facility]) 09/02/2022 Procedure visit Dermatology Jace Lynn MD [facility] [address] [place], [place] [address] ([facility]) 09/05/2022 Appointment Cardiology Trinity Reid MD [facility] CARDIOLOGY [place], [place] [address] ([facility]) 09/05/2022 Office Visit Cardiology Trinity Reid MD [facility] CARDIOLOGY [place], [place] [address] (Wo rk) documented as of this encounter Visit Diagnoses Diagnosis BCC (basal cell carcinoma of skin) Basal cell carcinoma of skin, site unspe cified documented in this encounter Care Teams Machine Cloth Trimmer Relationship Specialty Start Date End Date Bobby Das MD PCP - General 10/02/[address] [place] [address] [place] [phone] documented as of this encounter
--- OUTSIDE RECORDS SUMMARY | 2022-06-23 00:20 | XMS_ITS | Encounter Summary ---
:1940 Author Organization [facility] [place] [address] Care Team Providers Name Role Phone Bobby Das MD Primary Care Provider Encounter Details Date Type Department Care Team Description 12/16/2016 [facility] [phone] Social History Tobacco Use Types Packs/Day Years Used Date Current Some Day Smoker 1 50 Smokeless Tobacco: Never Used Sex Assigned at Date Recorded Not on file documented as of this encounter Miscellaneous Notes Telephone Encounter - Negra Butt RN - 12/16/2016 9:22 AM EST Incoming call from patient he states I am calling in as I am not sure why I have been scheduled for an EMG test and a CT Scan when I was there on Friday we did not discuss either of these so if possible can the doctor or someone call me back and explain to me what and why I am having this done the best number to reach me is thank you Nurse advises she will forward this message to the doctor for review and recommendation and will notify patient with results. Patient verbalizes understanding and agrees with the plan. Forward message to Dr. Rebolledo and Dr. Orozco for review and recommendation. documented in this encounter Plan of Treatment Upcoming Encounters Date Type Specialty Care Team Description 07/02/2022 Office Visit Vascular Surgery Jing Ghosh, HIRAL [facility] VASCULAR SURGERY [place], [place] [address] (Wo r[facility]) 09/02/2022 Clinical Support Dermatology Thai Lynn MD [facility] [address] [place], [place] [address] (Wo rk) 09/02/2022 Procedure visit Dermatology Jace Lynn MD [facility] DR [address] [place], [place] [address] (Wo rk) 09/05/2022 Appointment Cardiology Trinity Reid MD [facility] CARDIOLOGY [place], [place] [address] (Wo r[facility]) 09/05/2022 Office Visit Cardiology Trinity Reid MD [facility] CARDIOLOGY [place], [place] [address] (Wo rk) documented as of this encounter Visit Diagnoses Not on filedocumented in this encounter Care Teams Insulation Packer Relationship Specialty Start Date End Date Bobby Das MD PCP - General 10/02/[address] [place] [address] [place] [phone] documented as of this encounter
--- OUTSIDE RECORDS SUMMARY | 2022-06-23 00:20 | XMS_ITS | Encounter Summary ---
:1940 Author Organization [facility] Address [facility] [place] [address] Care Team Providers Name Role Phone Bobby Das MD Primary Care Provider Reason for Visit Reason Comments Shortness of Breath Encounter Details Date Type Department Care Team Description 12/24/2011 Office Visit [facility] Torrey Giang SOB (shortness of [address] Mendoza MD breath) (Primary Dx) [facility] [phone] CARDIOLOGY DEPT. [place], [place] [address] Social History Tobacco Use Types Packs/Day Years Used Date Current Every Day Smoker 1 50 Smokeless Tobacco: Never Used Sex Assigned at Date Recorded Not on file documented as of this encounter Progress Notes Wai Schilling - 01/02/2012 11:09 AM EST Torrey Giang - 12/24/2011 11:58 AM EST Subjective: Patient ID: Koko Zamora is a 71 y.o. male. HPI ROS Objective: Physical Exam Assessment and Plan: No problem-specific visit notes found for this encounter. Scanned note documented in this encounter Plan of Treatment Upcoming Encounters Date Type Specialty Care Team Description 07/02/2022 Office Visit Vascular Surgery Jing Ghosh, SHIELD OPERATOR [facility] VASCULAR SURGERY [place], [place] [address] (Wo r[facility]) 09/02/2022 Clinical Support Dermatology Thai Lynn MD [facility] [address] [place], [place] [address] (Wo r[facility]) 09/02/2022 Procedure visit Dermatology Jace Lynn MD [facility] [address] [place], [place] [address] (Wo r[facility]) 09/05/2022 Appointment Cardiology Trinity Reid MD [facility] CARDIOLOGY [place], [place] [address] (Wo rk) 09/05/2022 Office Visit Cardiology Trinity Reid MD [facility] CARDIOLOGY [place], [place] [address] (Wo rk) documented as of this encounter Visit Diagnoses Diagnosis SOB (shortness of breath) - Primary Shortness of breath documented in this encounter Care Teams Curriculum Developer Relationship Specialty Start Date End Date Bobby Das MD PCP - General 10/02/[address] [place] [address] [place] [phone] documented as of this encounter
--- OUTSIDE RECORDS SUMMARY | 2022-06-23 00:20 | XMS_ITS | Encounter Summary ---
:1940 [place] [address] Care Team Providers Name Role Phone Bobby Das MD Primary Care Provider Reason for Visit Reason Onset Date Comments Other 07/19/2011 Encounter Details Date Type Department Care Team Description 07/19/2011 Telephone Cardiology at [facility] Chet Nicole MD [facility] [place] [phone] CARDIOLOGY DEPT. [phone] [place], [place] [address] ([facility] r[facility]) Social History Tobacco Use Types Packs/Day Years Used Date Current Every Day Smoker 1 50 Smokeless Tobacco: Never Used Sex Assigned at Date Recorded Not on file documented as of this encounter Miscellaneous Notes Telephone Encounter - Laney Chahal - 07/19/2011 3:34 PM EDT Dominique from [facility] called stating that Mr. aZmora wansts nothing to do with the dobutamine for his stress test. He said he would be willing to try the treadmill. Dominique said you need to go in andchange the order for his stress test. documented in this encounter Plan of Treatment Upcoming Encounters Date Type Specialty Care Team Description 07/02/2022 Office Visit Vascular Surgery Jing Ghosh, SENIOR JAVA WEB DEVELOPER [facility] [place] [address] (Wo r[place]) 09/02/2022 Clinical Support Dermatology Thai Lynn MD [facility] [address] [place], [place] [address] (Wo rk) 09/02/2022 Procedure visit Dermatology Jace Lynn MD [facility] DR [facility] [place], [place] [address] (Wo rk) 09/05/2022 Appointment Cardiology Trinity Reid MD [facility] CARDIOLOGY [place], [place] [address] (Wo rk) 09/05/2022 Office Visit Cardiology Trinity Reid MD [facility] CARDIOLOGY [place], [place] [address] (Wo rk) documented as of this encounter Visit Diagnoses Not on filedocumented in this encounter Care Teams Heavy Equipment Operating Engineer Relationship Specialty Start Date End Date Bobby Das MD PCP - General 10/02/[address] [place] [address] [place] [phone] documented as of this encounter
--- OUTSIDE RECORDS SUMMARY | 2022-06-23 00:20 | XMS_ITS | Encounter Summary ---
:1940 Author Organization [facility] Address [facility] [place] [address] Care Team Providers Name Role Phone Bobby Das MD Primary Care Provider Reason for Visit Reason Comments Shortness of Breath Encounter Details Date Type Department Care Team Description 06/28/2011 Office Visit Cardiology at [facility] Chet Nicole SOB (shortness of breath) (P rimary Dx); [facility] GIB (gastrointestinal bleeding); Drive [facility] MVP (mitral valve prolapse) [place] [address] CARDIOLOGY DEPT. [phone] [place], [place] [address] Social History Tobacco Use Types Packs/Day Years Used Date Current Every Day Smoker 1 50 Smokeless Tobacco: Never Used Tobacco Cessation: Ready to Quit: No Sex Assigned at Date Recorded Not on file documented as of this encounter Last Filed Vital Signs Vital Sign Reading Time Taken Comments Blood Pressure - - Pulse 76 06/28/2011 2:53 PM EDT Temperature - - Respiratory Rate - - Oxygen Saturation - - Inhaled Oxygen Concentration - - Weight 87.5 kg (193 lb) 06/28/2011 2:53 PM EDT Height 176.5 cm (5' 9.5) 06/28/2011 2:53 PM EDT Body Mass Index 28.09 06/28/2011 2:53 PM EDT documented in this encounter Patient Instructions Patient InstructionsJazmine Giordano MD - 06/28/2011 4:15 PM EDT [facility] Cholesterol and Triglycerides Tests: About These Tests What are they? Cholesterol and triglycerides tests measure the amount of fats in your blood, including good (HDL)and bad (LDL) cholesterol. Why are these tests done? Cholesterol and triglycerides tests are done to help find out your chances of having heart disease. If you take medicine for high cholesterol and triglycerides, these tests can help your doctor find out how well the medicine is working. How can you prepare for these tests? ?? If your doctor tells you to fast before your tests, do not eat or drink anything except water for9 to 12 hours before having your blood drawn. Usually, you are allowed to take your medicines with water the morning of the test. ?? Do not eat high-fat foods the night before the tests. ?? Do not drink alcohol or exercise strenuously the night before the tests. ?? Be sure to tell your doctor about all the nonprescription and prescription medicines and herbs orother supplements you take. There are many medicines and supplements that can affect the results of these tests. What happens during these tests? The health professional taking a sample of your blood will: ?? Wrap an elastic band around your upper arm. This makes the veins below the band larger so it is easier to put a needle into the vein. ?? Clean the needle site with alcohol. ?? Put the needle into the vein. ?? Attach a tube to the needle to fill it with blood. ?? Remove the band from your arm when enough blood is collected. ?? Put a gauze pad or cotton ball over the needle site as the needle is removed. ?? Put pressure on the site and then put on a bandage. What else should you know about these tests? The following are general guidelines. Talk to your doctor about your target cholesterol levels. Theymay vary depending on your health and your risk for certain health problems. ?? Total cholesterol: Lower than 200 mg/dL is recommended. ?? HDL cholesterol: Higher than 40 mg/dL is recommended. Higher than 60 mg/dl is considered ideal. ?? Total wfccarajyui-nv-MRL ratio: A ratio of 5:1 or lower is recommended. ?? LDL cholesterol: Between 100-129 mg/dL is recommended. Lower than 100 mg/dL is considered ideal. ?? VLDL cholesterol: 30 mg/dL or less is recommended. ?? Triglycerides: Lower than 150 mg/dL is recommended. Where can you learn more? Visit our health information library at [email or web address]. You can also view health information on [employer], your personal patient account. Log in or sign up today. Enter V788 in the search box to learn more about Cholesterol and Triglycerides Tests: About These Tests. ?? [id number] [employer]. Care instructions adapted under license by [facility]. This care instruction is for use with your licensed healthcare professional. If you have questionsabout a medical condition or this instruction, always ask your healthcare professional. [employer] disclaims any warranty or liability for your use of this information documented in this encounter Progress Notes Jazmine Giordano MD - 06/28/2011 5:53 PM EDT Cardiology Clinic Visit Clinic Attending: Dr. Nicole Reason for Consult: We are being asked to see Koko Zamora at the request of Dr. Dr. Adame for evaluation of dyspnea on exertion. HPI: Koko Zamora is a 70 y.o. male with PMHx of MVP s/p mitral valve repair in 2000 who presents with progressive dyspnea on exertion and fatigue over the last 6-12 months which he has noted in association with streneous activity such as running his dog over a few minutes, or running 100 ft. He was able to do this a year ago without problems. He denies any associated chest pain/pressure/tightness, denies palpitations, PND, orthopnea. Additionally he notes feeling less energetic over the last year, with napping 1 hr during the daytime, and only 5 hrs of sleep at night as he wakes up at 02:30 AM andcannot go back to sleep. Of note, he admits to drinking 24 beers/week on average, with heavier drinking history in the past. His prior evaluation includes: - evaluation by Dr. Giang in 02/2010 and o with recommendations for stress echo, BRITNEY, statin, lifestyle modifications - PFTs 01/2010 with decreased diffusion capacity but no indication for COPD: FEV1 10&% predicted,FEV1/FVC 102% predicted - Stress echo 04/2010: negative, HR 87% MPHR, BP 210/80, only VPBs - TTE 02/2010: EF 65%, no WMA, mildly thickened MV with no MR, LA and RA mildly dilated, PASP 25 - hyperlipidemia as noted in Dr. Giang's note: Total Chol 303 down to 190 on rosuvastatin but patient discontinued therapy ROS General Denies fevers, chills, night sweats, wt stable CVS + CHAMBERS, Denies chest pain, palpitations, PND, orthopnea Pulm Denies cough. GI Denies abdominal pain, nausea/vomiting, BPR Denies hematuria, dysuria Neuro Denies syncope/presyncope PMHx: Patient Active Problem List Diagnoses ??? GIB (gastrointestinal bleeding) Secondary to 3-4 ASA/day, required admission and blood transfusion ??? MVP (mitral valve prolapse) s/p repair Surgery done at [facility] in 2000 ??? Hypertriglyceridemia ??? Adhesive capsulitis of L shoulder ??? Alcohol use Medications: Hackett-3 Fatty Acids-Vitamin E (FISH OIL) 1,000 mg Cap, Take 1,000 mg by mouth daily., Disp: , Rfl: ; MULTIVITAMIN (MULTIPLE VITAMIN ORAL), Take 1 tablet by mouth daily., Disp: , Rfl: Allergies: Allergies Allergen Reactions ??? 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 Tobacco: 2-8 cig/day over last 6 mo, prior hx of 1-1.5 ppd x 50 yrs Etoh: 24 beers/week on average Family Hx Mother with DM, PPM Father: with metastatic CA unknown primary No Hx of CAD Physical Exam: Last value Range last 48 hrs Temperature Temp: -- Heart Rate Heart Rate: 76 Heart Rate: [76] Blood Pressure Respiratory Rate Resp: -- SpO2 SpO2: -- General: NAD HEENT: No pallor, no jaundice, MMM, no carotid bruits CV: RRR, no m/g/r, JVP at 8 cm H2O, no parasternal heave, nonpulsatile liver Pulm: CTAB without w/r/r, no increase in WOB GI: Abd soft, NT, ND, +BS Ext: Wwp, no c/c/e, 2+ DP and radial pulses b/l. Skin: Warm, dry Neuro: A&O x 3 in NAD. Labs: None for review Studies: ECG today: NSR with LAFB, no ST/Tw changes Impression: Koko Zamora is a 70 y.o. male with PMHx of MVP s/p mitral valve repair who presents with progressive CHAMBERS over the last 6 -12 mo associated not with regular but with strenuous activity. His risk factors are: smoking, hyperlipidemia,age, etoh intake. Given significant etoh consumption could suspect alcoholic cardiomyopathy with decreased EF, although no signs of heart failure on exam today. Additionally he needs f/u of his MV s/p repair. A dobutamine stress echo would be a reasonable test as it would help us evaluate his MV, EF, as well as cardiac ischemia. We discussed etoh reduction to 1-2 drinks/day given risk for alcoholic CM, and written information from update given to patient on this topic. We also discussed lipid control, specifically TG with risk for ASCVD and pancreatitis, 3 minutes on smoking cessation Recommendations: - DSE to evaluate EF, MV, and cardiac ischemic - lifestyle modification: etoh reduction, smoking cessation, lipid control, increase physical activity I saw patient in clinic with and discussed plan as above with Dr. Nicole, cardiology clinic attending. .STAFF ADDENDUM: I have reviewed the available records, interviewed and examined the patient. I have discussed the patient's medical history, differential diagnosis, and plan of therapy with Dr Giordano and have reviewedtheir note dated 07/01/2011 and I agree with their note and plan of therapy. Interval History: S/P MVR. Recent SOB and DSE will be performed to evaluate MVR as well as LV function and r/o ischemia. Interval Physical Exam: VSS HEENT: No abnormal jugular venous findings or carotid abnormalities. Lungs: Clear to A+P Cor: RR, PMI not displaced. No precordial heaves or thrills. Normal S1 and S2, no murmur, gallop or rub. Abd: nontender, no organomegaly or bruits. Ext: Pulses preserved, no edema, clubbing or cyanosis. Lab Comments: Multiple labs assessed. Problems Reviewed: Plan: 1. I have updated the patient and/or appropriate family on the working diagnosis and plan of management. 2. The results of lab data and/or diagnostic studies were discussed. documented in this encounter Plan of Treatment Upcoming Encounters Date Type Specialty Care Team Description 07/02/2022 Office Visit Vascular Surgery Jing Ghosh APRN [facility] VASCULAR SURGERY [place], [place] [address] (Wo rk) 09/02/2022 Clinical Support Dermatology Thai Lynn MD [facility] DR [address] [place], [place] [address] (Wo rk) 09/02/2022 Procedure visit Dermatology Jace Lynn MD [facility] DR [address] [place], [place] [address] (Wo rk) 09/05/2022 Appointment Cardiology Trinity Reid MD [facility] CARDIOLOGY [place], [place] [address] (Wo rk) 09/05/2022 Office Visit Cardiology Trinity Reid MD [facility] CARDIOLOGY [place], [place] [address] (Wo rk) documented as of this encounter Procedures Procedure Name Priority Date/Time Associated Diagnosis Comme nts EKG 12-LEAD Routine 06/28/2011 2:59 PM SOB (shortness of Resu lts for this EDT breath) procedure are i n the results section . documented in this encounter Results EKG 12 Lead (06/28/2011 2:59 PM EDT) [facility] Method Time Signature Ventricular rate 70 BPM MUSE SYSTEM Atrial Rate 70 BPM MUSE SYSTEM P-R Interval 182 ms MUSE SYSTEM QRS Duration 106 ms MUSE SYSTEM Q-T Interval 406 ms MUSE SYSTEM QTC Calculated 438 ms MUSE SYSTEM (Bezet) Calculated P [place] 60 degrees MUSE SYSTEM Calculated R [place] -51 degrees MUSE SYSTEM Calculated T [place] 32 degrees MUSE SYSTEM INTERPRETATION Normal sinus rhythm MUSE SYSTEM Left anterior fascicular block Minimal voltage criteria for LVH, may be normal variant Abnormal ECG No previous ECGs available Confirmed by MD BRENDA, VIDHYA ([id number]) on 06/29/2011 10:38: 32 AM Specimen Anatomical Collection Method Collection Time Receive d Time (Source) Location / / Volume Laterality 06/28/2011 2:59 PM 1 EDT 10:38 AM EDT Chet Nicole MD ECG ORDERABLES Performing Organization Address City/State/ZIP Code Phon e Number MUSE SYSTEM documented in this encounter Visit Diagnoses Diagnosis SOB (shortness of breath) - Primary Shortness of breath GIB (gastrointestinal bleeding) Hemorrhage of gastrointestinal tract, un specified MVP (mitral valve prolapse) s/p repair Mitral valve disorders documented in this encounter Care Teams Project Finance Analyst Relationship Specialty Start Date End Date Bobby Das MD PCP - General 10/02/[address] [place] [address] [place] [address] documented as of this encounter
--- OUTSIDE RECORDS SUMMARY | 2022-06-23 00:20 | XMS_ITS | Encounter Summary ---
:1940 Author Organization [facility] [place] [address] Care Team Providers Name Role Phone Bobby Das MD Primary Care Provider Reason for Visit Reason Comments Suture / Staple Removal Encounter Details Date Type Department Care Team Description 08/31/2015 Clinical Support Dermatology at [place] Visit for suture Heat Nicol Estrella MD removal [address] [facility] [address] [facility] [phone] [address]-DERMATOLOGY [place] [id number] Social History Tobacco Use Types Packs/Day Years Used Date Current Some Day Smoker 1 50 Smokeless Tobacco: Never Used Sex Assigned at Date Recorded Not on file documented as of this encounter Progress Notes Jeni Franco LPN - 08/31/2015 2:47 PM EDT HPI: Patient is a 74 y.o. male with history of basal cell carcinoma, right congregation, s/p Mohs repairedby transposition flap repair who is presenting for suture removal. Denies complications. Exam: General: No acute distress Skin: Limited examination of right congregation shows a well-healed flap. There is no erythema, dehiscence, ecchymosis, or drainage. Assessment and Plan 1. Basal cell carcinoma, right congregation, s/p Mohs repaired by transposition flap repair Sutures removed. Steri-strips applied. Wound care instructions given. Follow up in 3 months. Is there another skin cancer that requires treatment? No Has this been scheduled? N/A Follow up in October 2015. JENI FRANCO LPN documented in this encounter Plan of Treatment Upcoming Encounters Date Type Specialty Care Team Description 07/02/2022 Office Visit Vascular Surgery Jing Ghosh, FISH HATCHERY SPECIALIST [facility] VASCULAR SURGERY [place], [place] [address] (Wo rk) 09/02/2022 Clinical Support Dermatology Thai Lynn MD [facility] DR [address]ENNY [address] [place], [place] [address] (Wo rk) 09/02/2022 Procedure visit Dermatology Jace Lynn MD [facility] DR [address] [place], [place] [address] (Wo rk) 09/05/2022 Appointment Cardiology Trinity Reid MD [facility] CARDIOLOGY [place], [place] [address] (Wo rk) 09/05/2022 Office Visit Cardiology Trinity Reid MD [facility] CARDIOLOGY [place], [place] [address] (Wo rk) documented as of this encounter Visit Diagnoses Diagnosis Visit for suture removal Encounter for removal of sutures documented in this encounter Care Teams Mill Representative Relationship Specialty Start Date End Date Bobby Das MD PCP - General 10/02/[address] [place] [address] [place] [phone] documented as of this encounter
--- OUTSIDE RECORDS SUMMARY | 2022-06-23 00:20 | XMS_ITS | Encounter Summary ---
:1940 Author Organization [facility] [place] [address] Care Team Providers Name Role Phone Bobby Das MD Primary Care Provider Encounter Details Date Type Department Care Team Description 07/26/2015 External Results Medical Records Provider, [facility] [place] [address] Social History Tobacco Use Types Packs/Day Years Used Date Current Some Day Smoker 1 50 Smokeless Tobacco: Never Used Sex Assigned at Date Recorded Not on file documented as of this encounter Plan of Treatment Upcoming Encounters Date Type Specialty Care Team Description 07/02/2022 Office Visit Vascular Surgery Jing Ghosh APRN [facility] VASCULAR SURGERY [place], [place] [address] (Wo rk) 09/02/2022 Clinical Support Dermatology Thai Lynn MD [facility] DR [address]ENNY [address]ILL[address] [place], [place] [address] (Wo rk) 09/02/2022 Procedure visit Dermatology Jace Lynn MD [facility] DR [address] [place], [place] [address] (Wo rk) 09/05/2022 Appointment Cardiology Trinity Reid MD [facility] [address] [place], [place] [address] (Wo rk) 09/05/2022 Office Visit Cardiology Trinity Reid MD [facility] CARDIOLOGY [place], [place] [address] (Wo rk) documented as of this encounter Procedures Procedure Name Priority Date/Time Associated Diagnosis Comme nts SURGICAL PATHOLOGY Routine 07/26/2015 Results f or this SCAN procedure are i n the results section . documented in this encounter Results Scan Doc: Surgical Pathology (07/26/2015) Narrative This result has an attachment that is no t available. Leo Solo MD MEDIA MGR SCAN EXT ORDR/RSLT documented in this encounter Visit Diagnoses Not on filedocumented in this encounter Care Teams Perinatal Technician Relationship Specialty Start Date End Date Bobby Das MD PCP - General 10/02/[address] [place] [address] [place] [id number] documented as of this encounter
--- OUTSIDE RECORDS SUMMARY | 2022-06-23 00:25 | XMS_ITS | Encounter Summary ---
:[address] [facility] Address [address] [place] [address] Care Team Providers Name Role Phone Bobby Das MD Primary Care Provider Reason for Visit Reason Onset Date Comments Diagnostic Imaging Report 11/25/2017 Encounter Details Date Type Department Care Team Description 11/25/2017 Telephone [facility] Lynn Vargas RN Diagnostic Imaging Radiation Oncology - [address] [place] [address] Report [place], [place] [id number] [place] [address] Social History Tobacco Use Types Packs/Day Years Used Date Current Every Day Smoker Smokeless Tobacco: Never Used Sex Assigned at Date Recorded Not on file documented as of this encounter Miscellaneous Notes Telephone Encounter - Lynn Vargas RN - 11/25/2017 [address] Das's office called stating that Koko Zamora would like further imaging to rule out other types of cancer in his body prior to starting treatment for his prostate cancer. He states that cancer is common in his family. He would like Dr. Gutierrez to order more imaging. Dr. Gutierrez states that Koko Zamora doesn't need any further imaging for his current diagnosis. Dr. Gutierrez states that he has discussed this with Koko. Dr. Das's office is aware that Dr. Gutierrez will not be ordering any additional imaging. documented in this encounter Plan of Treatment Not on filedocumented as of this encounter Visit Diagnoses Not on filedocumented in this encounter Care Teams Gas Meter Repair Supervisor Relationship Specialty Start Date End Date Bobby Das MD PCP - General 07/06/[address] [place] [address] ,[address] [place] [address] documented as of this encounter
--- OUTSIDE RECORDS SUMMARY | 2022-06-23 00:25 | XMS_ITS | Encounter Summary ---
:1940 Author Organization [facility] Address [address] [place] [address] Care Team Providers Name Role Phone Bobby Das MD Primary Care Provider Encounter Details Date Type Department Care Team Description 01/08/2018 Hospital Encounter [facility] Aries Gutierrez Radiation Oncology - III, [facility] [address] [address] [address], [place] [phone] (Wo rk) Social History Tobacco Use Types Packs/Day Years Used Date Current Every Day Smoker Smokeless Tobacco: Never Used Sex Assigned at Date Recorded Not on file documented as of this encounter Discharge Diagnoses Diagnosis C61 Malignant neoplasm of prostate-C61[I [id number]] documented in this encounter Medications at Time of Discharge Medication Sig Dispensed Refills Start Date End Date FLUTICASONE PROPIONATE by nasal route as 0 (FLONASE NASAL) needed. multivitamin (THERAGRAN) Take 1 Tab by mouth 0 per tablet daily. rosuvastatin (CRESTOR) 40 Take 40 mg by mouth 0 mg tablet daily. ascorbic acid, vitamin C, Take 500 mg by 0 02/03/2018 (VITAMIN C) 500 mg tablet mouth daily. ciprofloxacin HCl (CIPRO) Take 1 Tab by mouth 7 Tab 0 0 01/07/2018 02/03/2018 500 mg tablet 2 times daily. Start Cipro the night prior to your planned procedure. documented as of this encounter Discharge Disposition Disposition Code Departure Means Destination Home or Self Senior Care documented in this encounter Plan of Treatment Not on filedocumented as of this encounter Visit Diagnoses Not on filedocumented in this encounter Care Teams Bilingual Counter Sales Retail Relationship Specialty Start Date End Date Bobby Das MD PCP - General 07/06/[address] [place] [address],[address] [place] [address] documented as of this encounter
--- OUTSIDE RECORDS SUMMARY | 2022-06-23 00:25 | XMS_ITS | Encounter Summary ---
:1940 Author Organization [facility] Address [address] [place] [address] Care Team Providers Name Role Phone Bobby Das MD Primary Care Provider Encounter Details Date Type Department Care Team Description 06/17/2019 Results Only Imaging [facility]- Unknown, [facility] ProviderMD [phone] Social History Tobacco Use Types Packs/Day Years Used Date Current Every Day Smoker Smokeless Tobacco: Never Used Sex Assigned at Date Recorded Not on file documented as of this encounter Plan of Treatment Pending Results Name Type Priority Associated Diagnoses Date/Ti me OUTSIDE IMAGES - MR NEURO Imaging 16:02 EDT OUTSIDE IMAGES - OTHER Imaging 06/17 16:02 EDT NEURO OUTSIDE IMAGES - CT NEURO Imaging 16:02 EDT documented as of this encounter Visit Diagnoses Not on filedocumented in this encounter Care Teams Behavioral Scientist Relationship Specialty Start Date End Date Bobby Das MD PCP - General 07/06/[address] [place] [address] ,[address] [place] [phone] documented as of this encounter
--- OUTSIDE RECORDS SUMMARY | 2022-06-23 00:25 | XMS_ITS | Encounter Summary ---
:1940 Author Organization [facility] Address [address] [place] [address] Care Team Providers Name Role Phone Bobby Das MD Primary Care Provider Encounter Details Date Type Department Care Team Description 11/20/2017 Results Only Imaging [facility]- Unknown, [facility] ProviderMD [phone] Social History Tobacco Use Types Packs/Day Years Used Date Current Every Day Smoker Smokeless Tobacco: Never Used Sex Assigned at Date Recorded Not on file documented as of this encounter Plan of Treatment Pending Results Name Type Priority Associated Diagnoses Date/Ti me OUTSIDE IMAGES - NM OTHER Imaging 14:15 EST documented as of this encounter Visit Diagnoses Not on filedocumented in this encounter Care Teams Pharmacognosy Teacher Relationship Specialty Start Date End Date Bobby Das MD PCP - General 07/06/[address] [place] [address],[address] [place] [phone] documented as of this encounter
--- OUTSIDE RECORDS SUMMARY | 2022-06-23 00:25 | XMS_ITS | Encounter Summary ---
:1940 Author Organization [facility] Address [address] [place] [id number] Care Team Providers Name Role Phone Bobby Das MD Primary Care Provider Encounter Details Date Type Department Care Team Description 10/29/2017 Results Only [facility] Erlin José MD Urology - [address] [address] [address], [place] [phone] (Wo rk) Social History Tobacco Use Types Packs/Day Years Used Date Never Assessed Sex Assigned at Date Recorded Not on file documented as of this encounter Plan of Treatment Not on filedocumented as of this encounter Procedures Procedure Name Priority Date/Time Associated Diagnosis Comme [facility] SURGICAL PATHOLOGY Routine 10/29/2017 8:21 EST Re sults for this procedure are i n the results section. documented in this encounter Results SURGICAL PATHOLOGY (10/29/2017 8:21 EST) Pathology SURGICAL PATHOLOGY REPORT [facility] MED[facility] Report: Reports generated via electronic interface conta in original data; [facility] however they are lacking the format of the original re port. SERVICES Caution should be taken when reading/interpreting unfo rmatted reports. Name: ? ETTA BAH ? Accession #: ? [id number] ? : ? 1940 (Age: 77) ??M ? Collect Date: ? 10/29/2017 ? Location: ? [facility] ? Receive Date: ? 017 ? Provider: JASMINE JOSÉ MD Copy to: ? Final Pathologic Diagnosis: SUMMARY OF CORES A (right base) (3) ?No tumor B (right mid) (4) ?No tumor C (right apex) (4) ?No tumor D (left base) (2) ?3+ 3 ? 4% ?1/2 [3+3, 10%; no tumor] ? PN E (left mid) (5) ? No tumor F (left apex) (2) ?3+ 4 (30% 4) ?30% ?1/2 [3+4(30% 4), 54% PIN; ANDREINA PIN] ?PN (PIN: ? perineural invasion) (PIN: ?high-grade prostatic intraepithelial neetu plasia) (ANDREINA: ? atypical small acinar proliferation) Winifred score can be grouped and range from Prognostic Grade Group I (most favorable) to Prognostic Grade Group V (least favorabl e). Winifred score less than or equal to 6: Prognostic Grad e Group I [place] score 3+4=7: Prognostic Grade Group II [place] score 4+3=7: Prognostic Grade Group III Winifred score 8: Prognostic Grade Group IV Winifred score 9-10: Prognostic Grade Group V References for Prognostic Grade Groups: J Clin Hercules 2012;30:3682-7815 Joey CASTAÑEDA. The Winifred Grading System (A Comple te Guide for Pathologists and Clinicians), LWW, 2013 Serg PM, Shell PW, Edward AW, Joey JI. Progno stic Winifred Grade Grouping: Data based on the modified [place] scoring s yste. BJU Int 2013;111:753-760 A. PROSTATE, RIGHT BASE, BIOPSY (3): - Prostatic tissue (9.9 mm) with focal atrophy. - Prostatic tissue (8.0 mm) with focal a trophy and focal chronic inflammation. - Prostatic tissue (7.5 mm) with no specific histopath ologic features. - Small portion of benign colorectal mucosa with no sp ecific histopathologic features. B. PROSTATE, RIGHT MID, BIOPSY (4): - Prostatic tissue (11.0 mm) with focal atrophy and focal chronic inflammation. - Prostatic tissue (9.7 mm) with focal a trophy and focal chronic inflammation. - 2 portions of colorectal mucosa (2.0 mm and 1.5 mm) with no specific histopathologic features. C. PROSTATE, RIGHT APEX, BIOPSY (4): - Prostatic tissue (6.0 mm) with focal atrophy. - Prostatic tissue (4.5 mm) with focal atrophy. - Prostatic tissue (3.8 mm) with no specific histopath ologic features. - Prostatic tissue (3.0 mm) with focal atrophy. - Small portion of colorecta l mucosa with no specific histopathologic features. D. 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 ? - Global tumor Winifred score: ?3 + 3 = 6 ? - Prognostic Grade Group: ?I (3+3) ? - Percent involvement: ? 4% of ent brian prostatic tissue ? - Perineural invasion: ? Present ??- Core #1 (12.5 mm): ? - Prostatic adenocarcinoma (1 contiguous tumor focus) ? - ??Histologic grade: ?3 + 3 ?- ??Primary G leason pattern: ? Grade 3 ?- ??Secondary [place] pattern: ? Grade 3 ?- ??Total Gle ason score: ?6 ? - ??Tumor contiguity: ? Contiguous ? - ??Linear millimeter s of prostatic tissue: ? 12.5 mm ? - ??Linear millimeter s of carcinoma: ?1.2 mm ? - ??Proportion of prostatic tissu e involved by tumor: ?10% ? - ??Perineural invasi on: ? Present ??- Core #2 (21.2 mm): ? - Prostatic tissue with no specific histopathol ogic features. E. PROSTATE, LEFT MID, BIOPSY (5): - Prostatic tissue (8.8 mm, 7.2 mm, 6.8 mm, 5.6 mm) wi th atrophy. - Colorectal mucosa and fibromuscular tissue (2.5 mm) with no specific histopathologic features. F. 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 ? - Global tumor [place] score: ?3 + 4 = 7 (30% pattern 4) ? - Prognostic Grade Group: ?II (3+4) ? - Percent involvement: ? 30% of en tire prostatic tissue ? - Perineural invasion: ? Present - Small focus of atypical small acinar p roliferation (ANDREINA) in the other core. - High-grade prostatic intraepithelial neoplasia (PIN) ??- Core #1 (15.2 mm): ? - Prostatic adenocarcinoma (1 contiguous tumor focus) ? - ??Histologic grade: ?3 + 4 (30% pattern 4) ?- ??Primary G leason pattern: ? Grade 3 ?- ??Secondary Winifred pattern: ? Grade 4 (fused glands, cribriform) ?- ??Total Gle ason score: ?7 ? - ??Tumor contiguity: ? Contiguous ? - ??Linear millimeter s of prostatic tissue: ? 15.2 mm ? - ??Linear millimeter s of carcinoma: ?8.1 mm ? - ??Proportion of prostatic tissu e involved by tumor: ?54% ? - ??Perineural invasi on: ? Present ? - ??High-grade prosta tic intraepithelial neoplasia (PIN): ?Present (cribriform pattern) ??- Core #2 (12.0 mm): ? - Prostatic tissue with: ?- ??Small focus of atypical small acinar p roliferation (ANDREINA) ?- ??High-grade prostatic intraepithelial n eoplasia (PIN) Comment: This case has been presented and reviewed at the intradepartmental consultation conference for confirmation of malignancy. Document reviewed and electronically signed by: Torrey Hamilton MD Report ??Date: 11/01/2017 12:38 By the signature above, the attending physician certif ies that he/she has personally conducted a gross and/or microscopic examin ation of the described specimens and rendered or confirmed the above diagnosi s. Specimen(s) Received: A. ??Right base B. ??Right mid C. ??Right apex D. ??Left base E. ??Left mid F. ??Left apex Clinical History: Elevated PSA Gross Description: A. ?Received in formalin labelled with proper p atient identification (initials F, R) and Rt base are two de leon-white tissue cores (1.1 cm and 1.0 cm in length, and each 0.1 cm in diameter). Entirely subm itted in A1. B. ?Received in formalin labelled with proper p atient identification (initials F, R) and Rt mid are two de leon -white tissue cores (1.5 cm and 1.2 cm in length, and each 0.1 cm in diameter). Entirely subm itted in B1. C. ?Received in formalin labelled with proper p atient identification (initials F, R) and Rt apex is a single de leon-white ti ssue core (1.4 cm in length x 0.1 cm in diameter). Submitted intact in C1. D. ?Received in formalin labelled with proper p atient identification (initials F, R) and Lt base are two de leon-white tissue cores (2.1 cm and 1.4 cm in length, and each 0.1 cm in diameter). Entirely subm itted in D1. E. ?Received in formalin labelled with proper p atient identification (initials F, R) and Lt mid are two de leon -white tissue cores (1.4 cm and 1.3 cm in length, and each 0.1 cm in diameter). Entirely subm itted in E1. F. ?Received in formalin labelled with proper p atient identification (initials F, R) and Lt apex are two de leon-white tissue cores (1.7 cm and 1.4 cm in length, and each 0.1 cm in diameter). Entirely subm itted in F1. Papa Montes 10/30/2017 9:13 AM End of Report Specimen Performing Organization Address City/State/ZIP Code Phon e Number [facility] [address] [place] [id number] SERVICES documented in this encounter Visit Diagnoses Not on filedocumented in this encounter Care Teams Roofer Metal Relationship Specialty Start Date End Date Bobby Das MD PCP - General 07/06/[address] [place] [address] ,[address] [place] [phone] documented as of this encounter
--- OUTSIDE RECORDS SUMMARY | 2022-06-23 00:25 | XMS_ITS | Encounter Summary ---
:1940 Author Organization [facility] Address [address] [place] [id number] Care Team Providers Name Role Phone Bobby Das MD Primary Care Provider Reason for Visit Reason Onset Date Comments Prostate Cancer 11/20/2017 Encounter Details Date Type Department Care Team Description 11/20/2017 Orders Only [facility] Aries Gutierrez Radiation Oncology - [facility], [address] [address] [address], [place], [place] [phone] (Wo rk) Social History Tobacco Use Types Packs/Day Years Used Date Current Every Day Smoker Smokeless Tobacco: Never Used Sex Assigned at Date Recorded Not on file documented as of this encounter Ordered Prescriptions Prescription Sig Dispensed Refills Start Date End Date bicalutamide (CASODEX) Take 1 Tab by mouth 28 Tab 0 11/1001/08/2018 50 mg tablet daily. Don't start taking until instructed by Dr. Gutierrez documented in this encounter Plan of Treatment Not on filedocumented as of this encounter Visit Diagnoses Not on filedocumented in this encounter Care Teams Invertebrate Paleontologist Relationship Specialty Start Date End Date Bobby Das MD PCP - General 07/06/[address] [place] [address] ,[address] [place] [address] documented as of this encounter
--- OUTSIDE RECORDS SUMMARY | 2022-06-23 00:25 | XMS_ITS | Encounter Summary ---
:1940 Author Organization [facility] Address [address] [place] [address] Care Team Providers Name Role Phone Bobby Das MD Primary Care Provider Reason for Visit Reason Comments Cancer Encounter Details Date Type Department Care Team Description 02/27/2018 Radiation Therapy [facility] Letty Gaitan RN Malignant neoplasm Visit Radiation Oncology [address] [place] [address] ([facility]) (Primary [address], [place]x) [place] [phone] Social History Tobacco Use Types Packs/Day Years Used Date Current Every Day Smoker Smokeless Tobacco: Never Used Sex Assigned at Date Recorded Not on file documented as of this encounter Progress Notes Janae Gaitan RN - 02/27/2018 1220 EDT On Treatment Visit Assessment: Koko Zamora is currently receiving radiation therapy treatment and is being seen today for his weekly on treatment visit. The encounter diagnosis was Malignant neoplasm of prostate ([facility]). Assessment: Assessment Completed By: Janae Gaitan RN (02/27/18 1220) Radiation Therapy: Cumulative RT Dose 6000 cGy Daily RT Dose 300 cGy Total RT Planned Dose 6000 cGy Chemotherapy Agent lupron x 6 months Subjective Note: General: rectal bleeding that discolored stool. no clots. described as more orange colored but stated no red foods x 2 days. complaints of rectal pain that keeps him from sitting comfortably. rates pain 0/10 to 8/10 and takes advil with good relief. possible rectal irritation from rt. encouraged him to keep bm's soft and to to adjust citrucel to help form stools together to limit number of small stools per day ( 4-6 sttols per day) . also suggested addition of colace if needed to keeps stools soft. he sees family doctor next week. he will have f/u phone call from rn next week. he also knows to callif he should see blood clots. Nutrition: have recommended low fiber Pain: pelvis Numeric Pain Level (Scale 1-10): 0 Average Pain Level: 4 Minimum Pain Level: 0 Maximum Pain Level: 8 Pain Treatment: advil 3 times daily Narcotic: No Psychosocial: coping ok Review of Systems: possible rectal bleeding. reviewed diet and bowel meidcations Physical Exam: Sitting BP: 137/67 Sitting Pulse: 73 Standing BP: 112/55 Standing Pulse: 74 General: independent. General Appearance: Appears comfortable, no acute distress Here With: self Skin Exam: no alley Skin Reaction: none Anorectal: no rectal pain, but does have pelvic pressure and pain. suggested warm soaks. rectal bleeding reviewed and will f/u next week Neurologic: a/o x 3 Treatment Related Toxicity: Fatigue: 0-None Pain: 0-None Alopecia: 0-None Dermatitis: 0-None Abdominal Pain: 0-None (pelvic pain 0/10 to 8/10) Diarrhea: 2-Increase of 4-6 stools/day: mod increase in ostomy output compared to baseline Proctitis: 1-Rectal discomfort: intervention not indicated Bladder Spasm: 0-None Cystitis: 0-None Incontinence: 0-None Urinary Frequency: 2-Medical Management indicated: limiting instrumental ADL Urinary Retention: 2-Placement of urinary/suprapubic/intermitt catheter indicated: medication indicated Headache: 0-None Impression: Performance Status: 0-Fully active, able to carry on all pre-disease performance without restriction Plan: Plan: Complete per plan Plan Comment: f/u in [address] alba. sees family doctor next week. rectal bleeding x 1. stool was orange-red. jacqueline food influence. reviewed bowel management and will call next week to f/u Medication Changes: citrucel increase from 2 tabs per day to 4 tabs per day. may also need to add colace if stools are too firm. sees family doctor next week documented in this encounter Plan of Treatment Not on filedocumented as of this encounter Visit Diagnoses Diagnosis Malignant neoplasm of prostate (HCC-CMS) (HCC) - Primary Malignant neoplasm of prostate documented in this encounter Care Teams Screed Operator Relationship Specialty Start Date End Date Bobby Das MD PCP - General 07/06/[address] [place] [address] ,[address] [place] [phone] documented as of this encounter
--- OUTSIDE RECORDS SUMMARY | 2022-06-23 00:25 | XMS_ITS | Encounter Summary ---
:1940 Author Organization [facility] Address [address] [place] [address] Care Team Providers Name Role Phone Bobby Das MD Primary Care Provider Reason for Visit Reason Comments Cancer Encounter Details Date Type Department Care Team Description 02/16/2018 Radiation Therapy [facility] Isela Law Ma lignant neoplasm of Visit Radiation Oncology - RN prostleonid e ([facility]) [facility] [place] (Primary Dx) [address] [place] [phone] Social History Tobacco Use Types Packs/Day Years Used Date Current Every Day Smoker Smokeless Tobacco: Never Used Sex Assigned at Date Recorded Not on file documented as of this encounter Last Filed Vital Signs Vital Sign Reading Time Taken Comments Blood Pressure 118/62 02/16/2018 1357 EDT Pulse 74 02/16/2018 1357 EDT Temperature - - Respiratory Rate - - Oxygen Saturation - - Inhaled Oxygen Concentration - - Weight - - Height - - Body Mass Index - - documented in this encounter Progress Notes Isela Law RN - 02/16/2018 1356 EDT On Treatment Visit Assessment: Koko Zamora is currently receiving radiation therapy treatment and is being seen today for his weekly on treatment visit. The encounter diagnosis was Malignant neoplasm of prostate ([facility]). Assessment: Assessment Completed By: Isela Law RN (02/16/18 1357) Radiation Therapy: Cumulative RT Dose 3168 cGy Daily RT Dose 300 cGy Total RT Planned Dose 6000 cGy Chemotherapy Agent Lupron X 6 mos Subjective Note: General: No GI c/o. Good energy. States he is ready to try the tamsulosin. Nutrition: REG Pain: Pelvis Numeric Pain Level (Scale 1-10): 0 Narcotic: No Psychosocial: Seems to be coping well. Review of Systems: frequency, retention and increased nocturia. Reports the weekend was not worsebut he is just ready to try to make it better with tamsulosin. Physical Exam: BP: 118/62 Pulse: 74 General: Generally feels well with modest urinary symptoms, still on ADT with only mild hot flashes. Here With: Self Skin Exam: No c/o Skin Reaction: none Lung: Current every day smoker. : Day 11 - reports frequency, urgency and weak stream. Anorectal: No c/o. Treatment Related Toxicity: Fatigue: 0-None Pain: 0-None Dermatitis: 0-None Diarrhea: 0-None Constipation: 1-Occasional or intermittent S/S: occ use of stool softeners, laxatives, enema Proctitis: 0-None Bladder Spasm: 0-None Cystitis: 0-None Incontinence: 0-None Urinary Frequency: 2-Medical Management indicated: limiting instrumental ADL Urinary Retention: 2-Placement of urinary/suprapubic/intermitt catheter indicated: medication indicated Impression: Performance Status: 0-Fully active, able to carry on all pre-disease performance without restriction Plan: Plan: Continue per plan Plan Comment: Start tamsulosin tonight. BP low at baseline. Reviewed s/e related to tamsulosin. Medication Changes: Tamsulosin 0.4mg daily. documented in this encounter Plan of Treatment Not on filedocumented as of this encounter Visit Diagnoses Diagnosis Malignant neoplasm of prostate (HCC-CMS) (HCC) - Primary Malignant neoplasm of prostate documented in this encounter Care Teams Watch Assembly Inspector Relationship Specialty Start Date End Date Bobby Das MD PCP - General 07/06/[address] [place] [address],[address] [place] [phone] documented as of this encounter
--- OUTSIDE RECORDS SUMMARY | 2022-06-23 00:25 | XMS_ITS | Encounter Summary ---
:1940 Author Organization [facility] Address [address] [place] [address] Care Team Providers Name Role Phone Bobby Das MD Primary Care Provider Encounter Details Date Type Department Care Team Description 08/28/2020 Lab Requisition [facility] Outr Resulting Lab, Pathology & Laboratory Provider [facility] [address], [place] [id number] Social History Tobacco Use Types Packs/Day Years Used Date Current Every Day Smoker Smokeless Tobacco: Never Used Sex Assigned at Date Recorded Not on file documented as of this encounter Plan of Treatment Not on filedocumented as of this encounter Procedures Procedure Name Priority Date/Time Associated Comments Diagnosis DO NOT ORDER Today 08/28/2020 9:58 EDT Results for this STANDALONE - BROAD procedure are in COVID TEST the results section. COVID-19 TESTING Routine 08/28/2020 9:58 EDT Resu lts for this procedure are i n the results section. documented in this encounter Results DO NOT ORDER STANDALONE - BROAD COVID TEST (08/28/2020 9:58 EDT) COVID-19 rt-PCR NEGATIVE Negative [facility] Result Comment: LABORATORY 2019-novel Coronavirus (2019 -nCoV) not detected by the qRT-PCR assay. Consider testing for other respiratory viruses or re-collecting for 2019-nCoV testing. Note: Optimum timing for peak viral levels du ring infections caused by 20 -nCoV have not been determined. Collection of multiple specimens from the same patient may be necessary to detect the virus. Limitations Positive results are indicat isidoro of active infection with SARS-CoV-2 but do not rule out bacterial infection or co-infection with other viruses. The agent detected may not be the definite cause of diseas e. In addition, detection of viral RNA may not indicate the presence of infectious virus or that SARS-CoV-2 is the causative agent for clinical symptoms. Negative results do not prec lude SARS-CoV-2 infection and should not be used as the sole basis for patient management decisions. Negative results must be combined with clinical observations, patient his tory, and epidemiological in formation. False negative results may also occur if amplification inhibitors are present in the specimen or if inadequate numbers of organisms are present in the specimen. Op timum specimen types and zoe ing for peak viral levels during infections caused by SARS-CoV-2 have not been fully determined. Collection of multiple specimens (types and time points) from the same patient may be necessary to detect the virus. The test was validated for u se with upper respiratory specimens obtained via nasopharyngeal or oropharyngeal swabs in VTM, UTM, M4, M5, M6, saline, and MTM media. The performance of this test has not be en established for other spe cimens. Specimens collected using other FDA recommended Specimen Collection Materials listed in the FDA COVID-19 [employer] communication (February 03, 2020) are pr ocessed with the caveat that they were not all validated for use with this test and the result must be interpreted in this context. Furthermore, a false negative results may occur if a specimen is improperly collected, transported or handled. If the virus mutates in the RT-PCR target region, SARS-CoV-2 may not be detected or may be detected less predictably. Inhibitors or other types of interference may produce a false negative result. An interference study evaluating the effect of common cold medications was not performed. This test is not FDA-cleared but its performance characteristics were established by our CLIA-certified, CAP-accredited, high complexity laboratory in accordance with CLIA regulations, [employer] (CAP) guidel cristiano (Jan 27, 2020), and FDA guidance (Jan 08, 2020). This test is only for use un bre the Food and Drug Administration's Emergency Use Authorization. Specimen Swab - Entire nasopharynx (body structur e) Performing Organization Address City/State/ZIP Code Phon e Number [employer] [facility] [place] [place] COVID-19 TESTING (08/28/2020 9:58 EDT) Pathologist [facility] COVID-19 rt-PCR NEGATIVE Negative [facility] Result Comment: LABORATORY 2019-novel Coronavirus (2019 -nCoV) not detected by the qRT-PCR assay. Consider testing for other respiratory viruses or re-collecting for 2019-nCoV testing. Note: Optimum timing for peak viral levels du ring infections caused by 20 -nCoV have not been determined. Collection of multiple specimens from the same patient may be necessary to detect the virus. Limitations Positive results are indicat isidoro of active infection with SARS-CoV-2 but do not rule out bacterial infection or co-infection with other viruses. The agent detected may not be the definite cause of diseas e. In addition, detection of viral RNA may not indicate the presence of infectious virus or that SARS-CoV-2 is the causative agent for clinical symptoms. Negative results do not prec lude SARS-CoV-2 infection and should not be used as the sole basis for patient management decisions. Negative results must be combined with clinical observations, patient his tory, and epidemiological in formation. False negative results may also occur if amplification inhibitors are present in the specimen or if inadequate numbers of organisms are present in the specimen. Op timum specimen types and zoe ing for peak viral levels during infections caused by SARS-CoV-2 have not been fully determined. Collection of multiple specimens (types and time points) from the same patient may be necessary to detect the virus. The test was validated for u with upper respiratory specimens obtained via nasopharyngeal or oropharyngeal swabs in VTM, UTM, M4, M5, M6, saline, and MTM media. The performance of this test has not be en established for other spe cimens. Specimens collected using other FDA recommended Specimen Collection Materials listed in the FDA COVID-19 [employer] communication (February 03, 2020) are pr ocessed with the caveat that they were not all validated for use with this test and the result must be interpreted in this context. Furthermore, a false negative results may occur if a specimen is improperly collected, transported or handled. If the virus mutates in the RT-PCR target region, SARS-CoV-2 may not be detected or may be detected less predictably. Inhibitors or other types of interference may produce a false negative result. An interference study evaluating the effect of common cold medications was not performed. This test is not FDA-cleared but its performance characteristics were established by our CLIA-certified, CAP-accredited, high complexity laboratory in accordance with CLIA regulations, [employer] of [employer] an [employer]ologists (CAP) guidel cristiano (Jan 27, 2020), and FDA guidance (Jan 08, 2020). This test is only for use un bre the Food and Drug Administration's Emergency Use Authorization. Performing Lab [facility] LABORATORY SERVICES Specimen Swab Performing Organization Address City/State/ZIP Code Phon e Number [facility] [address] [place] [address] SERVICES [facility] [place] documented in this encounter Visit Diagnoses Not on filedocumented in this encounter Care Teams Grain Elevator Operator Relationship Specialty Start Date End Date Bobby Das MD PCP - General 07/06/[address] [place] [address] ,[address] [place] [address] documented as of this encounter
--- OUTSIDE RECORDS SUMMARY | 2022-06-23 00:25 | XMS_ITS | Encounter Summary ---
:1940 Author Organization [facility] Address [address] [place] [address] Care Team Providers Name Role Phone Unknown, Provider Primary Care Provider Encounter Details Date Type Department Care Team Description 07/03/2015 Results Only [facility]- [facility]ISM Abby Das MD [phone] [place] [address],[address] [place], [place] [phone] (Wo rk) Social History Tobacco Use Types Packs/Day Years Used Date Never Assessed Sex Assigned at Date Recorded Not on file documented as of this encounter Plan of Treatment Not on filedocumented as of this encounter Procedures Procedure Name Priority Date/Time Associated Diagnosis Comme [facility] SURGICAL PATHOLOGY Routine 07/03/2015 8:54 EDT Re sults for this procedure are i n the results section. documented in this encounter Results SURGICAL PATHOLOGY (07/03/2015 8:54 EDT) Pathology Report: SURGICAL PATHOLOGY REPORT [facility] Reports generated via electronic interface contain abram ginal data; LABORATORY however they are lacking the format of the original re port. SERVICES Caution should be taken when reading/interpreting unfo rmatted reports. Name: ? ETTA BAH ? Accession #: ? [id number] ? : ? 1940 (Age: 74) ??M ? Collect Date: ? 07/03/2015 ? Location: ? [facility] ? Receive Date: ? 07/04/20 15 ? Provider: ABBY DAS MD Copy to: ? Final Pathologic Diagnosis: SKIN OF MANDAEISM, RIGHT, EXCISION: - Basal cell carcinoma, infiltrative type. ??See comme nt. - Perineural invasion identified. - Margins of excision positive. ??- Lesion extends to peripheral and deep margins of excision specimen. Comment: These results were phoned to Dr. Das's office. ?? (Dr. Morris)/jamar Document reviewed and electronically signed by: MARYCARMEN MORRIS MD Report ??Date: 07/05/2015 14:52 By the signature above, the attending physician certif ies that he/she has personally conducted a gross and/or microscopic examin ation of the described specimens and rendered or confirmed the above diagnosi s. Specimen(s) Received: R mandaeism Clinical History: Basal cell carcinoma reexcision Gross Description: ? Received in formalin labelled with proper patient identification (initials F, R) not otherwise specified is an unor iented elliptical excision of de leon-pink skin (1.6 x 0.6 cm and is excised to a depth of 0.5 cm). There is a centrally located depression (0.2 x 0.1 cm) with n o definitive lesion grossly identified and along the periphery is a focal area of purple discoloration. The margins are inked blue. The specimen is serially sectioned and ent irely submitted as 1-2 central sections and 3 tips, reverse en face. Dr. Arguello ? 07/04/2015 10:29 End of Report Specimen Performing Organization Address City/State/ZIP Code Phon e Number [facility] [address] [place] [address] SERVICES documented in this encounter Visit Diagnoses Not on filedocumented in this encounter Care Teams Macroeconomics Professor Relationship Specialty Start Date End Date Unknown, Provider, PCP - General 07/03/15 07/05/15 documented as of this encounter
--- OUTSIDE RECORDS SUMMARY | 2022-06-23 00:25 | XMS_ITS | Encounter Summary ---
:1940 Author Organization [facility] Address [address] [place] [address] Care Team Providers Name Role Phone Bobby Das MD Primary Care Provider Reason for Visit Reason Comments Cancer Encounter Details Date Type Department Care Team Description 01/08/[address] [facility] Isela Law Ma lignant neoplasm of Visit Radiation Oncology - RN prostat e ([facility]) Main [place] ([facility]) (Primary [address] [facility] Dx) [place] [address] Social History Tobacco Use Types Packs/Day Years Used Date Current Every Day Smoker Smokeless Tobacco: Never Used Sex Assigned at Date Recorded Not on file documented as of this encounter Progress Notes Isela Law RN - 01/08/2018 1319 EST Special Procedure Note: Fiducial Markers Patient/SO Education for Procedure: Patient/SO education completed: Yes Patient/SO reviewed instructions & prescriptions: Yes Patient/SO can state plan for care: Yes Patient/SO given written instructions: Yes Day of Procedure: Procedure Type: Fiducial Markers 2 forms of identification: Yes Medication reconciliation completed: Yes Allergies reviewed: Yes Compliance with pre-procedure instructions confirmed: Yes Patient can describe the scheduled procedure: Yes Remaining questions addressed: Yes Procedure Note: Saline lock inserted: No Cooper catheter inserted: No Treatment devices will be applied: Yes Treatment devices will be applied: Transrectal Ultrasound probe, fiducial needles X [address] fiducail markers X 2, injectable lidocaine 1%, topical lidocaine 2% Koko Zamora identification and treatment verification was performed prior to the procedure by Dr. Gutierrez and myself. He was compliant with all pre-procedure instructions and started his antibioticas planned on 01/07/18. All of his questions were answered prior to signing consent. He was placed onthe procedure table in lithotomy position. His peritoneum was anesthestized with injectable lidocaine by Dr. Gutierrez and topical lidocaine was placed in his rectum prior to inserting the transrectal ultrasound. He states he had no pain or discomfort. He tolerated the procedure well. Prior to dischargehe was able to urinate and states he had no blood in his urine. He reports no pain or discomfort post procedure. He will return to the clinic on 01/16/18 for his planned simulation appointment. He understands he needs to have a full bladder for the simulation and he has been given both written and oral instructions for bladder filling. He knows to call if he has any urgent questions or concerns. Post Procedure Note: Blood Loss: 0 cc Treatment delivery devices removed: Yes Site care reviewed: Yes Reviewed post procedure instructions: Yes Written post procedure care instructions given to patient: Yes Contact phone numbers given to patient: Yes Follow up Phone Call Post Procedure: 01/09/18 documented in this encounter Plan of Treatment Not on filedocumented as of this encounter Visit Diagnoses Diagnosis Malignant neoplasm of prostate (HCC-CMS) (HCC) - Primary Malignant neoplasm of prostate documented in this encounter Care Teams Poll Watcher Relationship Specialty Start Date End Date Bobby Das MD PCP - General 07/06/[address] [place] [address],[address] [place] [phone] documented as of this encounter
--- OUTSIDE RECORDS SUMMARY | 2022-06-23 00:25 | XMS_ITS | Encounter Summary ---
:1940 Author Organization [facility] Address [address] [place] [address] Care Team Providers Name Role Phone Bobby Das MD Primary Care Provider Encounter Details Date Type Department Care Team Description 07/16/2019 Phlebotomy Only [facility] Instructional Resource Teacher, Eboni barbosa neoplasm - [facility] Outpatient of prostate [address] [facility] ([facility]) (Primary [place], [place] Dx) [address] Social History Tobacco Use Types Packs/Day Years Used Date Current Every Day Smoker Smokeless Tobacco: Never Used Sex Assigned at Date Recorded Not on file documented as of this encounter Plan of Treatment Not on filedocumented as of this encounter Procedures Procedure Name Priority Date/Time Associated Comments Diagnosis PSA TOTAL, Routine 07/16/2019 9:30 EDT Malignant neoplasm Re sults for this DIAGNOSTIC of prostate procedure are i n ([facility]) the results section. documented in this encounter Results PSA TOTAL, DIAGNOSTIC (07/16/2019 9:30 EDT) PSA 0.1 0 - 6.5 ng/ml [facility] Comment: LABORATORY SERVICES Serum PSA concentration should not be interpreted as absolute evidence for the presence or absence of malignant disease. Assayed utilizing Siemens ([employer]) chemiluminescent technology. ??Values obtained by using different assay methods cannot be used interchangeably. Specimen Blood specimen (specimen) - Blood Performing Organization Address City/State/ZIP Code Phon e Number [facility] [address] [place] [address] SERVICES documented in this encounter Visit Diagnoses Diagnosis Malignant neoplasm of prostate ([facility]) (HCC) - Primary Malignant neoplasm of prostate documented in this encounter Orders Lab Orders Without Results Count Last Ordered Date st Ordered Date PSA TOTAL, DIAGNOSTIC 1 07/16/2019 documented in this encounter Care Teams Cyber Security Architect Relationship Specialty Start Date End Date Bobby Das MD PCP - General 07/06/[address] [place] [address],[address] [place] [phone] documented as of this encounter
--- OUTSIDE RECORDS SUMMARY | 2022-06-23 00:25 | XMS_ITS | Encounter Summary ---
:1940 Author Organization [facility] Address [address] [place] [address] Care Team Providers Name Role Phone Bobby Das MD Primary Care Provider Encounter Details Date Type Department Care Team Description 10/29/2017 Hospital Encounter [facility]- Devi Unknown, Provider, [facility] [address] [facility] [phone] [place] [address] (Work) [phone] Social History Tobacco Use Types Packs/Day Years Used Date Never Assessed Sex Assigned at Date Recorded Not on file documented as of this encounter Discharge Disposition Disposition Code Departure Means Destination Home or Self Detention documented in this encounter Plan of Treatment Not on filedocumented as of this encounter Visit Diagnoses Not on filedocumented in this encounter Care Teams Building Maintenance Supervisor Relationship Specialty Start Date End Date Bobby Das MD PCP - General 07/06/[address] [place] [address],[address] [place] [phone] documented as of this encounter
--- OUTSIDE RECORDS SUMMARY | 2022-06-23 00:25 | XMS_ITS | Encounter Summary ---
:1940 Author Organization [facility] Address [address] [place] [address] Care Team Providers Name Role Phone Bobby Das MD Primary Care Provider Reason for Visit Reason Comments Cancer Encounter Details Date Type Department Care Team Description 02/06/2018 Radiation Therapy [facility] Lynn Vargas RN Malignant neoplasm Visit Radiation Oncology [address] [facility] ([facility] ([facility]) [address] [place] [address] (Primary Dx) [place] [id number] Social History Tobacco Use Types Packs/Day Years Used Date Current Every Day Smoker Smokeless Tobacco: Never Used Sex Assigned at Date Recorded Not on file documented as of this encounter Progress Notes Lynn Vargas RN - 02/06/2018 1233 EDT On Treatment Visit Assessment: Koko Zamora is currently receiving radiation therapy treatment and is being seen today for his weekly on treatment visit. The encounter diagnosis was Malignant neoplasm of prostate ([facility]). Assessment: Assessment Completed By: Lynn Vargas RN (02/06/18 1234) Radiation Therapy: Cumulative RT Dose 1500 cGy Daily RT Dose 300 cGy Total RT Planned Dose 6000 cGy Chemotherapy Agent Lupron Subjective Note: General: Feels well. Good energy. States he has noticed a decreased urine stream. He feels that he is emptying his bladder fully - it just takes longer. No pelvic pain. Shadi notes mild constipation which he is trying to resolve with diet. He is aware that he may take stool softeners and laxatives if needed. Nutrition: Regular diet Pain: pelvic Numeric Pain Level (Scale 1-10): 0 Narcotic: No Psychosocial: Coping well. States he has good support. 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 Physical Exam: General Appearance: Appears comfortable, no acute distress Here With: alone Skin Reaction: none (per patient) Treatment Related Toxicity: Fatigue: 0-None Pain: 0-None Dermatitis: 0-None Diarrhea: 0-None Constipation: 1-Occasional or intermittent S/S: occ use of stool softeners, laxatives, enema Proctitis: 0-None Bladder Spasm: 0-None Cystitis: 0-None Incontinence: 0-None Urinary Frequency: 0-None Urinary Retention: 0-None Weekly Review: Impression: Performance Status: 0-Fully active, able to carry on all pre-disease performance without restriction Plan: Plan: Continue per plan documented in this encounter Plan of Treatment Not on filedocumented as of this encounter Visit Diagnoses Diagnosis Malignant neoplasm of prostate (HCC-[facility]) (HCC) - Primary Malignant neoplasm of prostate documented in this encounter Care Teams Nutrition Helper Relationship Specialty Start Date End Date Bobby Das MD PCP - General 07/06/[address] [place] [address],[address] [place] [address] documented as of this encounter
--- OUTSIDE RECORDS SUMMARY | 2022-06-23 00:25 | XMS_ITS | Encounter Summary ---
:1940 Author Organization [facility] Address [address] [place] [address] Care Team Providers Name Role Phone Bobby Das MD Primary Care Provider Reason for Referral Laboratory Services (Routine) - Closed Specialty Diagnoses / Procedures Referred By Contact Refer red To Contact Diagnoses Malignant neoplasm of prostate ([facility]) ([facility]) Aries Gutierrez III, Procedures PSA TOTAL, DIAGNOSTIC MD [address] [place] [phone] Referral ID Status Reason Start Date Expiration Date Visits Requ ested Visits Authorized [id number] Closed 07/11/2019 1 1 Encounter Details Date Type Department Care Team Description 01/08/2019 Documentation Visit [facility] Aries Gutierrez Malignant neoplasm Radiation Oncology Felix EAST MD of prostate - [address] ([facility]) (Primary [address] [facility] Dx) [facility], [address] [place] [address] [phone] Social History Tobacco Use Types Packs/Day Years Used Date Current Every Day Smoker Smokeless Tobacco: Never Used Sex Assigned at Date Recorded Not on file documented as of this encounter Progress Notes Delores Gutierrez III, MD - 01/08/2019 1512 EST PSA order in chart documented in this encounter Plan of Treatment Scheduled Orders Name Type Priority Associated Diagnoses Order S chedule PSA TOTAL, DIAGNOSTIC Lab Routine Malignant neoplasm of Expected: 07/11/2019 prostate (CMS-HCC) (Approxim ate), Expires: (HCC-CMS) 01/08/2020 documented as of this encounter Visit Diagnoses Diagnosis Malignant neoplasm of prostate ([facility]) (HCC) - Primary Malignant neoplasm of prostate documented in this encounter Care Teams Electric Tape Slitter Relationship Specialty Start Date End Date Bobby Das MD PCP - General 07/06/[address] [place] [address],[address] [place] [phone] documented as of this encounter
--- OUTSIDE RECORDS SUMMARY | 2022-06-23 00:25 | XMS_ITS | Encounter Summary ---
:1940 Author Organization [facility] Address [address] [place] [address] Care Team Providers Name Role Phone Bobby Das MD Primary Care Provider Reason for Visit Reason Onset Date Comments Appointment Related 03/19/2018 Encounter Details Date Type Department Care Team Description 03/19/[address] [facility] Dominique Mirza, [place]lo[place] ointment Related Urology - James campo RN [address] [place] [address] Social History Tobacco Use Types Packs/Day Years Used Date Current Every Day Smoker Smokeless Tobacco: Never Used Sex Assigned at Date Recorded Not on file documented as of this encounter Miscellaneous Notes Telephone Encounter - Dominique Mirza RN - 03/19/2018 1040 EDT Per , the pt's appts for 04/07 can all be cancelled and You can cancel his follow up there. ill plan to see him at [facility]. Tc to pt to advise he contact [facility] and be sure appt has been scheduled for him to see at the end of this month or approximate. elephone Encounter - Dominique Mirza RN - 03/19/2018 0924 EDT Tc to pt to advise, per , the pt is reporting side effects from the Lupron injection and can stop the Lupron. Routed to rimma Bowser to advise cancel nsg appt on 04/07 but the pt still has an appt with on 04/07. Message sent to to ask if pt should keep the 04/07 appt with him and if so, can the pt be seen at [facility] as originally suggested in 's 01/05 progress note. Will call patient to let him know if he needs to f/u with and if so, can he be seen at [facility]. documented in this encounter Plan of Treatment Not on filedocumented as of this encounter Visit Diagnoses Not on filedocumented in this encounter Care Teams Manager Epic Relationship Specialty Start Date End Date Bobby Das MD PCP - General 07/06/[address] [place] [address],[address] [place] [address] documented as of this encounter
--- OUTSIDE RECORDS SUMMARY | 2022-06-23 00:25 | XMS_ITS | Clinical Summary ---
:1940 Author Organization [facility] Address [address] [place] [address] Care Team Providers Name Role Phone Bobby Das MD Primary Care Provider Allergies Active Allergy Reactions Severity Noted Date Comments Aspirin Other (See Comments) 11/19/2017 Upset s tomach Medications Medication Sig Dispensed Refills Start Date End Date Status rosuvastatin (CRESTOR) Take 40 mg by 0 Active 40 mg tablet mouth daily. multivitamin Take 1 Tab by 0 Act isidoro (THERAGRAN) per tablet mouth daily. FLUTICASONE PROPIONATE by nasal route as 0 Active (FLONASE NASAL) needed. tamsulosin (FLOMAX) TAKE ONE CAPSULE 30 capsule 8 03/04/2019 Active 0.4 mg capsule BY MOUTH ONE TIME DAILY calcium carb/vit Take by mouth. 0 Active D2/minerals (CALCIUM CITRATE + ORAL) Active Problems Problem Noted Date Malignant neoplasm of prostate ([facility]) 11/19/2017 Cancer Staging: Clinical stage from 11/19: Stage IIB (cT2a, cN0, cM0, PSA: 12.8, Grade Group: 2) - Signed by Delores Gutierrez III, MD on 11/19/2017 Medical History Medical History Date Comments Cancer ([facility]) (HCC) Hyperlipidemia Family History Medical History Relation Name Comments Lung Cancer Father Cancer Maternal Grandfather Relation Name Status Comments Father Maternal Grandfather Social History Tobacco Use Types Packs/Day Years Used Date Current Every Day Smoker Smokeless Tobacco: Never Used Tobacco Cessation: Counseling Given: Yes Sex Assigned at Date Recorded Not on file Last Filed Vital Signs Vital Sign Reading Time Taken Comments Blood Pressure 121/59 07/16/2019 0942 EDT Pulse 87 07/16/2019 0942 EDT Temperature 36.1 ??C (97 ??F) 07/16/2019 0942 EDT Respiratory Rate - - Oxygen Saturation 96% 07/16/2019 0942 EDT Inhaled Oxygen Concentration - - Weight 81.1 kg (178 lb 12.8 oz) 07/16/2019 0942 EDT Height 171.5 cm (5' 7.52) 07/16/2019 0942 EDT Body Mass Index 27.57 07/16/2019 0942 EDT Plan of Treatment Health Maintenance Due Date Last Done Comments Hepatitis C Screen 1940 COVID-19 Vaccine (#1) 1945 Fall Risk Screening 07/16/2020 07/16/2019, 11/19/2017 Insurance Payer Benefit Plan / Subscriber ID Effective Phone Address T ype Group Dates MEDICARE MEDICARE A/B [id number] 2007-Pre [address] edicare GL [id number] [place] [address] [facility] [id number] 2021-Pre [address] Commercial GL [facility] sent [place], [place] [id number] COMPANY Koko Zamora Personal/Family Self 1940 [address] (Home) [place] [address] Koko Zamora Personal/Family Self 1940 [address] ([place] [address] Care Teams Metalsmith Helper Relationship Specialty Start Date End Date Bobby Das MD PCP - General 07/06/[address] [place] [address],[address] [place] [phone]
--- OUTSIDE RECORDS SUMMARY | 2022-06-23 00:25 | XMS_ITS | Encounter Summary ---
:1940 Author Organization [facility] Address [address] [place] [address] Care Team Providers Name Role Phone Bobby Das MD Primary Care Provider Encounter Details Date Type Department Care Team Description 04/23/2018 Hospital Encounter [facility]- Devi Unknown, Provider, [facility] [address] [facility] [phone] [place] [address] (Work) [phone] Social History Tobacco Use Types Packs/Day Years [...] mg by mouth 0 mg tablet daily. tamsulosin (FLOMAX) 0.4 mg Take 1 Cap by mouth 30 Cap 11 02/16/2018 03/04/2019 capsule daily. documented as of this encounter Discharge Disposition Disposition Code Departure Means Destination Home or Self Intermediate documented in this encounter Plan of Treatment Not on filedocumented as of this encounter Visit Diagnoses Not on filedocumented in this encounter Care Teams Health Professional Relationship Specialty Start Date End Date Bobby Das MD PCP - General 07/06/[address] [place] [address] ,[address] [place] [phone] documented as of this encounter
--- OUTSIDE RECORDS SUMMARY | 2022-06-23 00:25 | XMS_ITS | Encounter Summary ---
:1940 Author Organization [facility] Address [address] [place] [address] Care Team Providers Name Role Phone Bobby Das MD Primary Care Provider Reason for Visit Reason Comments Follow-up Injection Encounter Details Date Type Department Care Team Description 01/05/2018 Office Visit [facility] Erlin José MD Malignant neoplasm of Urology - Main [address] [place] [address] ([facility] ([facility]) (Primary [address] [facility] [place] [address] Pavilion, [place] [address] (Wo rk) Social History Tobacco Use Types Packs/Day Years Used Date Current Every Day Smoker Smokeless Tobacco: Never Used Sex Assigned at Date Recorded Not on file documented as of this encounter Discharge Diagnoses Diagnosis C61 Malignant neoplasm of prostate-C61[I CD-10-CM] documented in this encounter Discharge Disposition Disposition Code Departure Means Destination Auto Discharge documented in this encounter Progress Notes Chino José MD - 01/05/2018 1983 EST Chief Complaint: Chief Complaint Patient presents with ??? Follow-up Injection HPI: Koko is a 77 y.o. male with prostate cancer. Grant presented with an elevated PSA to 12.8 shaw palpable nodule and on biopsy had 2 out of 12 cores positive for [place] 3+3 and [place] 3+4 prostate cancer. T2a. He previously had undergone a 1 month Lupron injection and tolerated this well. He has occasional hot flashes and subtle mood swings were otherwise is doing well. Medications Current Outpatient Prescriptions: ??? ascorbic acid, vitamin C, (VITAMIN C) 500 mg tablet, Take 500 mg by mouth daily., Disp: , Rfl: ??? bicalutamide (CASODEX) 50 mg tablet, Take 1 Tab by mouth daily. Don't start taking until instructed by Dr. Gutierrez (Patient not taking: Reported on 01/05/2018), Disp: 28 Tab, Rfl: 0 ??? [START ON 01/07/2018] ciprofloxacin HCl (CIPRO) 500 mg tablet, Take 1 Tab by mouth 2 times daily.Start Cipro the night prior to your planned procedure. (Patient not taking: Reported on 12/02/2017), Disp: 7 Tab, Rfl: 0 ??? FLUTICASONE PROPIONATE (FLONASE NASAL), by nasal route as needed., Disp: , Rfl: ??? multivitamin (THERAGRAN) per tablet, Take 1 Tab by mouth daily., Disp: , Rfl: ??? rosuvastatin (CRESTOR) 40 mg tablet, Take 40 mg by mouth daily., Disp: , Rfl: Allergies Allergies Allergen Reactions ??? Aspirin Other (See Comments) Upset stomach Objective/Physical Exam: Vital Signs: There were no vitals taken for this visit. Exam: Constitutional: Alert, in no distress. Lymph: Neck supple without lymphadenopathy Pulm: Normal effort, unlabored Abd: Abdomen soft, non tender. Renal: No CVA tenderness. Musculoskeletal: Extremities warm without edema. Skin: Skin warm and dry. Psych: Mood and affect appropriate Data Review: I have independently visualized the and image(s) Labs: CBC: No results found for: WBC, RBC, HGB, HCT, MCV, MCH, MCHC, PLT, NEUTROABS, SEDRATE BMP: No results found for: NA, K, CL, CO2, BUN, CREATININE, GLUCOSEFINGE, CALCIUM, MG, PHOS, LABALBU PSA: No results found for: PSA Impression: Patient with T2a, Winifred 3+4 prostate cancer associated with a PSA of 12.8. He presentstoday for a 3 month Lupron injection and we will proceed with radiation therapy with Dr. Guiterrez starting next month. Plan: Follow up with Dr. Gutierrez this week See me at [facility] after radiation therapy is complete with a PSA Chino José MD a [place], DION - 01/05/2018 0930 EST Lupron 22.5 mg mixed and injected into left buttocks without incidence per Dr. José's order. I was supervised by Dr José who was present and immediately available in the office suite. Ama Corea RN 01/05/2018 10:00 documented in this encounter Plan of Treatment Not on filedocumented as of this encounter Visit Diagnoses Diagnosis Malignant neoplasm of prostate (HCC-CMS) (HCC) - Primary Malignant neoplasm of prostate documented in this encounter Administered Medications Inactive Administered Medications - up to 3 most recent administrations Medication Order MAR Action Action Date Dose Rate Site leuprolide (LUPRON Given 01/05/2018 9:59 EST 22.5 mg Left Gluteus Medius DEPOT) injection 22.5 mg 22.5 mg, intramuscular, ONCE, 1 dose, Starting on Fri01/05/18 at 0948, Until Fri01/05/18 at 0959, Routine documented in this encounter Orders Medications Ordered That Might Not Have Count Last Ord ered Date First Ordered Date Been Administered leuprolide (LUPRON DEPOT) injection 22.5 1 018 mg documented in this encounter Care Teams Front End Mechanic Relationship Specialty Start Date End Date Bobby Das MD PCP - General 07/06/[address] [place] [address],[address] [place] [address] documented as of this encounter
--- OUTSIDE RECORDS SUMMARY | 2022-06-23 00:25 | XMS_ITS | Encounter Summary ---
:1940 Author Organization [facility] Address [address] [place] [address] Care Team Providers Name Role Phone Bobby Das MD Primary Care Provider Reason for Visit Reason Onset Date Comments Follow-up 02/24/2018 Appointment Related 02/24/2018 scheduled appt w/ nu rsing for Lupron injection on 04/06 Encounter Details Date Type Department Care Team Description 02/24/2018 Telephone [facility] Ama Corea, Follow -up; Appointment Urology - James campo RN Related (scheduled appt [address] [facility] w/ nursing [place] [address] injection on 04/06) [phone] Social History Tobacco Use Types Packs/Day Years Used Date Current Every Day Smoker Smokeless Tobacco: Never Used Sex Assigned at Date Recorded Not on file documented as of this encounter Miscellaneous Notes Telephone Encounter - Mague Crisostomo - 02/25/2018 1044 EDT scheduled appt w/ nursing for Lupron injection on 04/06; pt prefers it at the [place] office Telephone Encounter - Ama Corea, RN - 02/24/2018 1021 EDT ----- Message from Chino José MD sent at 02/23/2018 16:09 EDT ----- Can we please schedule this patient the end of March for a 3 month Lupron injection with nursing please? This will be his last injection. documented in this encounter Plan of Treatment Not on filedocumented as of this encounter Visit Diagnoses Not on filedocumented in this encounter Care Teams Offline Cutter Relationship Specialty Start Date End Date Bobby Das MD PCP - General 07/06/[address] [place] [address],[address] [place] [phone] documented as of this encounter
--- OUTSIDE RECORDS SUMMARY | 2022-06-23 00:25 | XMS_ITS | Encounter Summary ---
:1940 Author Organization [facility] Address [address] [place] [address] Care Team Providers Name Role Phone Bobby Das MD Primary Care Provider Encounter Details Date Type Department Care Team Description 07/16/2019 Hospital Encounter [facility] - Dayne Gutierrez [facility], MD [id number] [place] [address] [facility] [address] [place] [address] (Wo rk) Social History Tobacco Use Types Packs/Day Years Used Date Current Every Day Smoker Smokeless Tobacco: Never Used Sex Assigned at Date Recorded Not on file documented as of this encounter Discharge Diagnoses Diagnosis C61 Malignant neoplasm of prostate-C61[I CD-10-CM] documented in this encounter Medications at Time of Discharge Medication Sig Dispensed Refills Start Date End Date calcium carb/vit Take by mouth. 0 D2/minerals (CALCIUM CITRATE + ORAL) FLUTICASONE PROPIONATE by nasal route as 0 (FLONASE NASAL) needed. multivitamin (THERAGRAN) Take 1 Tab by mouth 0 per tablet daily. rosuvastatin (CRESTOR) 40 Take 40 mg by mouth 0 mg tablet daily. tamsulosin (FLOMAX) 0.4 mg TAKE ONE CAPSULE BY 30 capsule 8 03/04/2019 capsule MOUTH ONE TIME DAILY documented as of this encounter Discharge Disposition Disposition Code Departure Means Destination Auto Discharge Home documented in this encounter Plan of Treatment Not on filedocumented as of this encounter Visit Diagnoses Not on filedocumented in this encounter Care Teams Mailroom Supervisor Relationship Specialty Start Date End Date Bobby Das MD PCP - General 07/06/[address] [place] [address] ,[address] [place] [phone] documented as of this encounter
--- OUTSIDE RECORDS SUMMARY | 2022-06-23 00:25 | XMS_ITS | Encounter Summary ---
:1940 Author Organization [facility] Address [address] [place] [address] Care Team Providers Name Role Phone Bobby Das MD Primary Care Provider Encounter Details Date Type Department Care Team Description 02/08/2018 Hospital Encounter [facility] Aries Gutierrez Radiation Oncology - III, [facility] [address] [facility] [address] [place] [address] Pavilion, [place] [address] (Wo rk) Social History Tobacco Use Types [...] mg by mouth 0 mg tablet daily. documented as of this encounter Discharge Disposition Disposition Code Departure Means Destination Home or Self [place] documented in this encounter Plan of Treatment Not on filedocumented as of this encounter Visit Diagnoses Not on filedocumented in this encounter Care Teams City Wellness Coordinator Relationship Specialty Start Date End Date Bobby Das MD PCP - General 07/06/[address] [place] [address],[address] [place] [phone] documented as of this encounter
--- OUTSIDE RECORDS SUMMARY | 2022-06-23 00:25 | XMS_ITS | Encounter Summary ---
:1940 Author Organization [facility] Address [address] [place] [address] Care Team Providers Name Role Phone Bobby Das MD Primary Care Provider Reason for Visit Reason Comments Other Encounter Details Date Type Department Care Team Description 03/04/2019 Refill [facility] Radiation Adelfo Gutierrez ld Felix III, Other Oncology - Main [facility] [address] [place] [id number] [place] [address] [facility] [address] [place], [place] [address] (Wo rk) Social History Tobacco Use Types Packs/Day Years Used Date Current Every Day Smoker Smokeless Tobacco: Never Used Sex Assigned at Date Recorded Not on file documented as of this encounter Ordered Prescriptions Prescription Sig Dispensed Refills Start Date End Date tamsulosin (FLOMAX) 0.4 mg TAKE ONE CAPSULE BY 30 capsule 8 03/04/2019 capsule MOUTH ONE TIME DAILY documented in this encounter Plan of Treatment Not on filedocumented as of this encounter Visit Diagnoses Not on filedocumented in this encounter Discontinued Medications Medication Sig Discontinue Reason Start Date End Date tamsulosin (FLOMAX) 0.4 Take 1 Cap by mouth Reorder 02/16/2018 03/04/2019 mg capsule daily. documented as of this encounter Care Teams Pyrotechnician Relationship Specialty Start Date End Date Bobby Das MD PCP - General 07/06/[address] [place] [address],[address] [place] [phone] documented as of this encounter
--- OUTSIDE RECORDS SUMMARY | 2022-06-23 00:25 | XMS_ITS | Encounter Summary ---
:1940 Author Organization [facility] Address [address] [place] [address] Care Team Providers Name Role Phone Bobby Das MD Primary Care Provider Reason for Visit Reason Onset Date Comments Cancer 02/16/2018 Encounter Details Date Type Department Care Team Description 02/16/2018 Orders Only [facility] Isela Law Maligna nt neoplasm of prostate (HCC-CMS) (Primary Dx); Radiation Oncology - RN Andvamshi n deprivation therapy [address] [address] Social History Tobacco Use Types Packs/Day Years Used Date Current Every Day Smoker Smokeless Tobacco: Never Used Sex Assigned at Date Recorded Not on file documented as of this encounter Plan of Treatment Not on filedocumented as of this encounter Visit Diagnoses Diagnosis Malignant neoplasm of prostate (HCC-CMS) (HCC) - Primary Malignant neoplasm of prostate Androgen deprivation therapy Encounter for therapeutic drug monitorin g documented in this encounter Care Teams Pipe Tester Relationship Specialty Start Date End Date Bobby Das MD PCP - General 07/06/[address] [place] [address] ,[address] [place] [phone] documented as of this encounter
--- OUTSIDE RECORDS SUMMARY | 2022-06-23 00:25 | XMS_ITS | Encounter Summary ---
:1940 Author Organization [facility] Address [address] [place] [address] Care Team Providers Name Role Phone Bobby Das MD Primary Care Provider Reason for Visit Reason Comments Cancer Encounter Details Date Type Department Care Team Description 02/24/2018 Radiation Therapy [facility] Isela Law Ma lignant neoplasm of prostate (HCC-CMS) (Primary Dx); Visit Radiation Oncology - DION roldan deprivation therapy Main [place] [address] [place] [address] Social History Tobacco Use Types Packs/Day Years Used Date Current Every Day Smoker Smokeless Tobacco: Never Used Sex Assigned at Date Recorded Not on file documented as of this encounter Progress Notes Isela Law RN - 02/24/2018 1208 EDT On Treatment Visit Assessment: Koko Zamora is currently receiving radiation therapy treatment and is being seen today for his weekly on treatment visit. The primary encounter diagnosis was Malignant neoplasm of prostate (HCC-CMS). A diagnosis of Androgen deprivation therapy was also pertinent to this visit. Assessment: Assessment Completed By: Isela Law RN (02/24/18 1210) Radiation Therapy: Cumulative RT Dose 5100 cGy Daily RT Dose 300 cGy Total RT Planned Dose 6000 cGy Chemotherapy Agent Lupron X 6 mos Subjective Note: General: Urination well controlled since starting Flomax. Bowels more frequent, not diarrhea, small stools, energy still good. Nutrition: Reg Pain: Pelvis Numeric Pain Level (Scale 1-10): 0 Narcotic: No Psychosocial: Completes this week. 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 Has been a busy seasonwith all the snow. Review of Systems: Improved urination on Flomax. Discussed starting Citrucel to regulate bowels. Physical Exam: General: Generally feels well, still on ADT with Dr. José, mild hot flashes, irregular bowels. General Appearance: Appears comfortable, no acute distress Here With: Self Skin Exam: No c/o Skin Reaction: none : Improved urination on tamsulosin 0.4mg daily. Anorectal: No c/o Treatment Related Toxicity: Fatigue: 0-None Pain: 0-None Dermatitis: 0-None Diarrhea: 0-None Constipation: 1-Occasional or intermittent S/S: occ use of stool softeners, laxatives, enema Proctitis: 0-None Bladder Spasm: 0-None Cystitis: 0-None Incontinence: 0-None Urinary Frequency: 2-Medical Management indicated: limiting instrumental ADL Urinary Retention: 2-Placement of urinary/suprapubic/intermitt catheter indicated: medication indicated Weekly Review: Impression: Performance Status: 0-Fully active, able to carry on all pre-disease performance without restriction Plan: Plan: Continue per plan Plan Comment: Advised Shadi we will call him in 10 to 14 days post RT. He has an appointment with Dr. Gutierrez in 3 months. Medication Changes: May start Citrucel as discussed to control bowel irregularity. documented in this encounter Plan of Treatment Not on filedocumented as of this encounter Visit Diagnoses Diagnosis Malignant neoplasm of prostate (HCC-[facility]) (HCC) - Primary Malignant neoplasm of prostate Androgen deprivation therapy Encounter for therapeutic drug monitorin g documented in this encounter Care Teams Page Makeup System Operator Relationship Specialty Start Date End Date Bobby Das MD PCP - General 07/06/[address] [place] [address] ,[address] [place] [address] documented as of this encounter
--- OUTSIDE RECORDS SUMMARY | 2022-06-23 00:25 | XMS_ITS | Encounter Summary ---
:1940 Author Organization [facility] Address [address] [place] [address] Care Team Providers Name Role Phone Bobby Das MD Primary Care Provider Encounter Details Date Type Department Care Team Description 10/03/2021 Lab Requisition [facility] Bobby Das Enc ounter for other Pathology & MD general examination Laboratory Medicine [address] [place] [address],[address] [facility] [address] [place], [place] [id number] [place] [phone] Social History Tobacco Use Types Packs/Day Years Used Date Current Every Day Smoker Smokeless Tobacco: Never Used Sex Assigned at Date Recorded Not on file documented as of this encounter Plan of Treatment Not on filedocumented as of this encounter Procedures Procedure Name Priority Date/Time Associated Diagnosis Comme nts SURGICAL PATHOLOGY Today 10/03/2021 15:36 Resul ts for this EST procedure are i n the results section. documented in this encounter Results SURGICAL PATHOLOGY (10/03/2021 15:36 EST) Note to Patient The following [facility] MEDICAL pathology results have CENTER been interpreted by LABORATORY your pathologist and SERVICES may be available to you before your health provider has had the opportunity to review them. Please allow time for your provider to receive these results and explore management options, if applicable. Final Diagnosis A. SKIN OF BUTTOCK, RIGHT, EXCISION: U [facility] MEDICAL - Dense mixed inflammation w ith reactive epidermal hyperplasia and focal ulceration. See comment. CENTER LABORATORY SERVICES Diagnosis Comment The excision consists UV MEDICAL of a dense dermal CENTER inflammatory LABORATORY infiltrate that is of SERVICES mixed composition and includes numerous eosinophils. 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 Multiple sections were reviewed and no scabies organisms are seen. No foreign material is identified. Attestation By the signature [facility] MEDICAL Electronica lly below, the attending CENTER signed by Deejay, physician certifies LABORATORY Lis Platt MD on that they have 1) SERVICES 10/08/2021 at 1640 personally conducted a gross and/or microscopic examination of the described specimen(s), and/or personally interpreted the results of laboratory testing of the described specimen(s), and 2) personally rendered or confirmed the above diagnosis. Microscopic Sections consist of an [facility] MEDICAL Description excision of skin to CENTER the subcutis. The LABORATORY epidermis shows I SERVICES prominent degree of irregular hyperplasia with central ulceration. There is mild spongiosis in the area of ulceration. The dermis has a dense superficial and deep inflammatory infiltrate. The superficial component has a diffuse architecture and, in the deep dermis, the inflammation surrounds the vascular plexus. The infiltrate is of mixed composition but lymphocytes predominate. The lymphocytes include a spectrum of forms. There are numerous admixed eosinophils and a smaller number of plasma cells. Histiocytes are present but no well-formed granulomas are seen. No polarizable or non polarizable foreign material is evident. No scabies organisms are identified on either the original or multiple additional deeper sections. Clinical History Firm lesion not [facility] MEDICAL healing; foreign body CENTER granuloma LABORATORY SERVICES Gross Description A. [facility] MEDICAL Received in formalin christina d with proper patient identification (initials F, R) and not otherwise specified is an unoriented ellipse excision of pale de leon- white smooth skin (1.9 x 1.0 cm and is excised CENTER to a depth of 0.8 cm). There is a central hypopigmented crusted area (0.9 x 0.7 by less than 0.1 cm) with a central de leon-brown depressed focus (0.3 x 0.3 cm by less than 0.1 cm in depth). The margins are LABORATORY inked blue. The specimen is serially sectioned and entirely submitted as two tips, reverse en face in A1, and central sections in A2-A4. SERVICES Toni Giordano 10/05/2021 8:15 Performing Lab [facility] LABORATORY SERVICES Scanned Images [facility] LABORATORY SERVICES Specimen Tissue - Skin (tissue) specimen (specime n) Performing Organization Address City/State/ZIP Code Phon e Number [facility] LABORATORY [address] [place] [address] SERVICES documented in this encounter Visit Diagnoses Diagnosis Encounter for other general examination documented in this encounter Care Teams Pinked Edge Sewing Machine Operator Relationship Specialty Start Date End Date Bobby Das MD PCP - General 07/06/[address] [place] [address] ,[address] [place] [address] documented as of this encounter
--- OUTSIDE RECORDS SUMMARY | 2022-06-23 00:25 | XMS_ITS | Encounter Summary ---
:1940 Author Organization [facility] Address [address] [place] [address] Care Team Providers Name Role Phone Bobby Das MD Primary Care Provider Reason for Visit Reason Onset Date Comments Follow-up 03/06/2018 Encounter Details Date Type Department Care Team Description 03/06/2018 Telephone [facility] Theron Rojas RN Follow-up Radiation Oncology - Main [address] [place] [id number] [place] [address] Social History Tobacco Use Types Packs/Day Years Used Date Current Every Day Smoker Smokeless Tobacco: Never Used Sex Assigned at Date Recorded Not on file documented as of this encounter Miscellaneous Notes Telephone Encounter - Rupal Rojas RN - 03/06/2018 1303 EDT I called and spoke with Koko for F/U after completing radiation therapy 1 week ago. He continues with urinary urgency and frequency despite being on Flomax. He also endorses nocturia of 5-6 episodes per night. He reports drinking a gal of water daily, I asked him to slow down on oral hydration in the early evening or late afternoon to see if this helps reduce the nocturia episodes. He feels as though he is not completely emptying his bowels, he is eating well and not putting out much. He continues on Miralax and Citrucel. He is going to try a Fleets enema tomorrow to see if he any results. He is feeling fatigued and needs to take freq rest breaks during the day. He denies pain at rest but can go as high as 5/10 with BMs. He will be following up with Dr José from Urology on 04/[address] Gutierrez in Rad Onc on 06/08. He will call us before then if he is still having issues with his bowels. documented in this encounter Plan of Treatment Not on filedocumented as of this encounter Visit Diagnoses Not on filedocumented in this encounter Care Teams Political Researcher Relationship Specialty Start Date End Date Bobby Das MD PCP - General 07/06/[address] [place] [address],[address] [place] [phone] documented as of this encounter
--- OUTSIDE RECORDS SUMMARY | 2022-06-23 00:25 | XMS_ITS | Encounter Summary ---
:1940 Author Organization [facility] Address [address] [place] [address] Care Team Providers Name Role Phone Bobby Das MD Primary Care Provider Reason for Visit Reason Comments Prostate Cancer Encounter Details Date Type Department Care Team Description 02/03/2018 Radiation Therapy [facility] Aries Gutierrez alignant neoplasm Visit Radiation Oncology Felix EAST MD of [facility] - [address] ([facility]) ([facility]) [address] [place] [address] (Primary Dx) [facility], [address] [place] [address] [address] [place] [address] Social History Tobacco Use Types Packs/Day Years Used Date Current Every Day Smoker Smokeless Tobacco: Never Used Sex Assigned at Date Recorded Not on file documented as of this encounter Progress Notes Delores Gutierrez III, MD - 02/03/2018 6629 EDT On Treatment Visit Assessment: Koko Zamora is currently receiving radiation therapy treatment and is being seen today for his weekly on treatment visit. The encounter diagnosis was Malignant neoplasm of prostate ([facility]). Assessment: Assessment Completed By: Felix Gutierrez MD (02/03/18 7735) Radiation Therapy: Cumulative RT Dose 600 cGy Daily RT Dose 300 cGy Total RT Planned Dose 6000 cGy Chemotherapy Agent Lupron 6 months Subjective Note: General: Started yesterday, feels well so far Numeric Pain Level (Scale 1-10): 0 Physical Exam: General Appearance: Appears comfortable, no acute distress Treatment Related Toxicity: Fatigue: 0-None Diarrhea: 0-None Proctitis: 0-None Bladder Spasm: 0-None Cystitis: 0-None Urinary Frequency: 0-None Urinary Retention: 0-None Weekly Review: Radiation Set-up Imaging Reviewed: Yes Impression: Performance Status: 0-Fully active, able to carry on all pre-disease performance without restriction Disease State: Stable Treatment Break/Deviation: No Plan: Plan: Continue per plan Medication Changes: None Sj Gutierrez MD Radiation Oncology [phone] (office) [phone] (pager) documented in this encounter Plan of Treatment Not on filedocumented as of this encounter Visit Diagnoses Diagnosis Malignant neoplasm of prostate (HCC-CMS) (HCC) - Primary Malignant neoplasm of prostate documented in this encounter Discontinued Medications Medication Sig Discontinue Reason Start Date End Date ciprofloxacin HCl (CIPRO) Take 1 Tab by mouth 01/07/20 18 02/03/2018 500 mg tablet 2 times daily. Start Cipro the night prior to your planned procedure. ascorbic acid, vitamin C, Take 500 mg by 02/03/2018 (VITAMIN C) 500 mg tablet mouth daily. documented as of this encounter Care Teams Hypoid Gear Generator Relationship Specialty Start Date End Date Bobby Das MD PCP - General 07/06/[address] [place] [address],[address] [place] [address] documented as of this encounter
--- OUTSIDE RECORDS SUMMARY | 2022-06-23 00:25 | XMS_ITS | Encounter Summary ---
:1940 Author Organization [facility] Address [address] [place] [address] Care Team Providers Name Role Phone Bobby Das MD Primary Care Provider Reason for Visit Reason Onset Date Comments Prostate Cancer 11/20/2017 Encounter Details Date Type Department Care Team Description 11/20/2017 Telephone [facility] Cancer Center Aries Gutierrez Cancer Radiation Oncology - III, [address] [address] [address], [place] [address] (Wo rk) Social History Tobacco Use Types Packs/Day Years Used Date Current Every Day Smoker Smokeless Tobacco: Never Used Sex Assigned at Date Recorded Not on file documented as of this encounter Miscellaneous Notes Telephone Encounter - Delores Gutierrez III, MD - 11/20/2017 2900 EST RADIATION ONCOLOGY I spoke with Mr. Zamora by phone today. [facility] today[facility] no evidence of metastatic disease. He is eager to start therapy. I discussed his care with Dr. José. We will coordinate initiation of androgen deprivation as soon as practical. He will return for fiducial marker placement in approximately 6 weeks, anticipate we will start his treatment approximately 2 months after his first injection. Sj Gutierrez MD Radiation Oncology [phone] (office) [phone] (pager) This note has been prepared with voice recognition software. Please excuse manager track errors. documented in this encounter Plan of Treatment Not on filedocumented as of this encounter Visit Diagnoses Diagnosis Malignant neoplasm of prostate (HCC-CMS) (HCC) - Primary Malignant neoplasm of prostate documented in this encounter Care Teams Music Therapy Teacher Relationship Specialty Start Date End Date Bobby Das MD PCP - General 07/06/[address] [place] [address],[address] [place] [address] documented as of this encounter
--- OUTSIDE RECORDS SUMMARY | 2022-06-23 00:25 | XMS_ITS | Encounter Summary ---
:1940 Author Organization [facility] Address [address] [place] [address] Care Team Providers Name Role Phone Bobby Das MD Primary Care Provider Encounter Details Date Type Department Care Team Description 01/16/2018 Documentation Visit [facility] Santhosh Cosby Radiation Oncology - Main [address] [id number] Social History Tobacco Use Types Packs/Day Years Used Date Current Every Day Smoker Smokeless Tobacco: Never Used Sex Assigned at Date Recorded Not on file documented as of this encounter Progress Notes Santhosh Cosby - 01/16/2018 6295 EST SOCIAL WORK ASSESSMENT: Amount of Distress: 0 Practical Problems: None Family Problems: None Emotional Problems: None Physical Problems: None Spiritual/Christian Concerns: No Other Problems: Social Work Assessment: Met with Koko and his Ursula following his SIM. Reviewed the role of social work and other supportive services offered. Pt and his feel they are coping well at this time and declined any referrals. 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 They enjoy traveling and spending time with their children. Pt and declined any referrals at this time. Working Diagnosis/Presenting Problem: Prostate Cancer Living Arrangements: Pt lives in [place], [place] with his . 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 Functional Status (psychosocial and physical): Pt admits he worries at times about his diagnosis butfeels he is coping well. He and his have a close relationship and support one another through difficult times. Social Supports: Pt's Ursula, his adult children, and grandchildren. Existing Community Resources: none noted Advanced Directives/DPOA: Discussed document with pt today. Cultural/Spiritual Needs: none noted Insurance/Financial Needs: No insurance or financial concerns noted. Transportation Needs: None noted. Pt plans to drive himself. Plan: No social work needs at present. Pt agreed to contact social work as needed. ASH Antonio phone [phone] pager #[phone] documented in this encounter Plan of Treatment Not on filedocumented as of this encounter Visit Diagnoses Not on filedocumented in this encounter Care Teams Dietitian Teaching Relationship Specialty Start Date End Date Bobby Das MD PCP - General 07/06/[address] [place] [address],[address] [place] [phone] documented as of this encounter
--- OUTSIDE RECORDS SUMMARY | 2022-06-23 00:25 | XMS_ITS | Encounter Summary ---
:1940 Author Organization [facility] Address [address] [place] [address] Care Team Providers Name Role Phone Bobby Das MD Primary Care Provider Encounter Details Date Type Department Care Team Description 01/08/2019 Orders Only [facility] Cancer [place] Aries Gutierrez neoplasm of Radiation Oncology - Felix EAST MD prostate ([facility]) [address] (Primary Dx) [address] [place] [address] [facility] [phone] [facility] [address] [place] [address] (Wo rk) Social History Tobacco Use Types Packs/Day Years Used Date Current Every Day Smoker Smokeless Tobacco: Never Used Sex Assigned at Date Recorded Not on file documented as of this encounter Plan of Treatment Not on filedocumented as of this encounter Results PSA TOTAL, DIAGNOSTIC (07/16/2019 9:30 EDT) PSA 0.1 0 - 6.5 ng/ml [facility] Comment: LABORATORY SERVICES Serum PSA concentration should not be interpreted as absolute evidence for the presence or absence of malignant disease. Assayed utilizing Siemens (Radio Waves) chemiluminescent technology. ??Values obtained by using different assay methods cannot be used interchangeably. Specimen Blood specimen (specimen) - Blood Performing Organization Address City/State/ZIP Code Phon e Number [facility] LABORATORY [address] [place] [address] SERVICES documented in this encounter Visit Diagnoses Diagnosis Malignant neoplasm of prostate ([facility]) (HCC) - Primary Malignant neoplasm of prostate documented in this encounter Care Teams Manager Psychiatry Relationship Specialty Start Date End Date Bobby Das MD PCP - General 07/06/[address] [place] [address],[address] [place] [phone] documented as of this encounter
--- OUTSIDE RECORDS SUMMARY | 2022-06-23 00:25 | XMS_ITS | Encounter Summary ---
:1940 Author Organization [facility] Address [address] [place] [address] Care Team Providers Name Role Phone Bobby Das MD Primary Care Provider Reason for Visit Reason Comments Cancer Encounter Details Date Type Department Care Team Description 01/08/2018 Radiation Therapy [facility] Isela Law Ma lignant neoplasm of Visit Radiation Oncology - RN prostat e ([facility] Main [place] ([facility]) (Primary [address]) [place] [address] Social History Tobacco Use Types Packs/Day Years Used Date Current Every Day Smoker Smokeless Tobacco: Never Used Sex Assigned at Date Recorded Not on file documented as of this encounter Progress Notes Isela Law RN - 01/08/2018 1326 EST Koko Zamora is currently receiving radiation therapy treatment and is being seen today for his weekly on treatment visit. There were no encounter diagnoses. Assessment: Assessment Completed By: Isela Law RN (01/08/18 1325) Patient Education Topic: Method: Handout and Verbal Taught to: Patient and Ursula Barriers: None Outcomes: Pt verbalized understanding. Treatment Information Plan for Treatment: Prostate CA - EBRT Start Date/Time: 02/02/18 Radiation Plan: Pending Chemotherapy Plan: ADT - Lupron X [address] José. Transport Plan: Percy Vergara could be available to help drive if necessary. She will need to be home to run the B & B if not. Education Session Established contact and assessed patient readiness to learn: Yes Reviewed treatment plan, goals and possible acute side effects:Yes Reviewed site specific skin care, anticipated acute side effects and care management of the acute side effects:Yes Physician specific care management reviewed:Yes Learning objective met and will reinforce as needed:Yes Comments: Written patient and family education material provided: Yes Patient Information Alerts reviewed: Yes Allergies reviewed: Yes Cardiac pacemaker: No Implantable defibrillator: No Medication reconciliation completed: Yes Patient Intake form reviewed: Yes Pharmacy confirmed: Yes Smoking Information Current smoker: Yes If yes, was smoking cessation discussed? Yes Was patient referral initiated? No Past smoker: Yes Comments: Pt declined stating it is not practical for him to come to the hospital for supportive meetings. Advised Shadi he could probably attend the program and get free services/meds from afar. Referrals fitness worker: Yes (Shadi will meet with Santhosh Cosby MSW next week to review the DT and supportive services. ) Services: [place]: No Other: Subjective Note: General: Koko and his Ursula are here for the treatment teaching session post Fiducials being placed. 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 They are concerned that he might be incapacitatedwith fatigue and side effects while on treatment. They had planned to block out their reservation calendar while he is on treatment. We reviewed s/e today and I advised Tung and Ursula that I believe hiss/e will be tolerable and that he should be able to continue working. Nutrition: Reg diet Pain: None Numeric Pain Level (Scale 1-10): 0 Narcotic: No Psychosocial: Excellant support Ursula. 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 Review of Systems: h/o mitral valve repair (2000), otherwise no issues or concerns. Physical Exam: General: Generally feels well, on ADT with only a couple of hot flashes but not bothersome. No GI/GUc/o. General Appearance: Appears comfortable, no acute distress Here With: Ursula Skin Exam: Normal at baseline - reports his skin is very sensative - smokes cigarettes daily. Lung: Current cigarette smoker. : Reports frequency at baseline, was weak while on Bicalutamide but now more robust since d/c a week ago. Anorectal: No c/o Impression: Performance Status: 0-Fully active, able to carry on all pre-disease performance without restriction Plan: Plan: Continue per plan Plan Comment: Continue ADT x 4 mos. Will RTC 01/16/18 for SIM. Medication Changes: None FRAX Questionnaire 1. Age (between 40 and 90 years) or Date of Age: 77 Date of : Y: 1940 M: 11 D: 17 2. Male 3. Weight (kg): 83.5 4. Height (cm): 172.5 5. Previous Fracture: No 6. Parent Fractured Hip: No 7. Current Smoking: Yes 8. Glucocorticoids: No 9. Rheumatoid arthritis: No 10. Secondary osteoporosis: Yes 11. Alcohol 3 or more units/day: No 12. Femoral neck BMD (g/cm2) Select BMD Major Osteoporotic score: 11 Hip fracture score: 5.3 As per NCCN guidelines for prostate CA: Bone density treatment options should be considered for men who have a FRAX evaluated 10 year probability of hip fracture greater than or equal to 3% or a 10 year probability of a major osteoporosis- related fracture greater than or equal to 20%. All men older than 50 years old are recommended to take Calcium 1200 mg daily and Vitamin D (800-1000 IU) daily. Prior to starting a bone density treatment: A baseline DEXA scan should be obtained. A serum level of 25-hydroxy vitamin D should be checked. documented in this encounter Plan of Treatment Not on filedocumented as of this encounter Visit Diagnoses Diagnosis Malignant neoplasm of prostate (HCC-CMS) (HCC) - Primary Malignant neoplasm of prostate documented in this encounter Care Teams Intervention Manager Relationship Specialty Start Date End Date Bobby Das MD PCP - General 07/06/[address] [place] [address] ,[address] [place] [phone] documented as of this encounter
--- OUTSIDE RECORDS SUMMARY | 2022-06-23 00:25 | XMS_ITS | Encounter Summary ---
:[address] [facility] Address [address] [place] [address] Care Team Providers Name Role Phone Bobby Das MD Primary Care Provider Reason for Visit Reason Onset Date Comments Follow-up 01/12/2018 Encounter Details Date Type Department Care Team Description 01/12/2018 Telephone [facility] Radiation De Law RN Follow-up Oncology - [address] [address] Social History Tobacco Use Types Packs/Day Years Used Date Current Every Day Smoker Smokeless Tobacco: Never Used Sex Assigned at Date Recorded Not on file documented as of this encounter Miscellaneous Notes Telephone Encounter - Isela Law RN - 01/12/2018 2196 EST This is a planned post procedure call. Koko is not having any issues with urination post Fiducial markers being placed in his prostate. He has had no hematuria. He will FU as planned with Dr. Varma 01/16/18 for his Simulation. He will start RT on 02/02/18. documented in this encounter Plan of Treatment Not on filedocumented as of this encounter Visit Diagnoses Not on filedocumented in this encounter Care Teams Music Education Adjunct Professor Relationship Specialty Start Date End Date Bobby Das MD PCP - General 07/06/[address] [place] [address],[address] [place] [address] documented as of this encounter
--- OUTSIDE RECORDS SUMMARY | 2022-06-23 00:25 | XMS_ITS | Encounter Summary ---
:1940 Author Organization [facility] Address [address] [place] [address] Care Team Providers Name Role Phone Bobby Das MD Primary Care Provider Encounter Details Date Type Department Care Team Description 08/03/2020 Lab Requisition [facility] Outr Resulting Lab, Pathology & Laboratory Provider [facility] [address], [place] [id number] Social History Tobacco Use Types Packs/Day Years Used Date Current Every Day Smoker Smokeless Tobacco: Never Used Sex Assigned at Date Recorded Not on file documented as of this encounter Plan of Treatment Not on filedocumented as of this encounter Procedures Procedure Name Priority Date/Time Associated Comments Diagnosis DO NOT ORDER Today 08/03/2020 12:22 Results for this STANDALONE - BROAD EDT procedure are in COVID TEST the results section. COVID-19 TESTING Routine 08/03/2020 12:22 Results for this EDT procedure are i n the results section. documented in this encounter Results DO NOT ORDER STANDALONE - BROAD COVID TEST (08/03/2020 12:22 EDT) COVID-19 rt-PCR NEGATIVE Negative [facility] Result Comment: LABORATORY 2019-novel Coronavirus (2019 -nCoV) not detected by the qRT-PCR assay. Consider testing for other respiratory viruses or re-collecting for 2019-nCoV testing. Note: Optimum timing for peak viral levels du ring infections caused by 20 19-nCoV have not been determined. Collection of multiple [...] Organization Address City/State/ZIP Code Phon e Number [facility] [place] [place] COVID-19 TESTING (08/03/2020 12:22 EDT) Pathologist [facility] COVID-19 rt-PCR NEGATIVE Negative [facility] Result Comment: LABORATORY 2019-novel Coronavirus (2019 -nCoV) [...] Administration's Emergency Use Authorization. Performing Lab [facility] LABORATORY SERVICES Specimen Swab Performing Organization Address City/State/ZIP Code Phon e Number [facility] [address] [place] [address] SERVICES [facility] [place], [place] documented in this encounter Visit Diagnoses Not on filedocumented in this encounter Care Teams Solution Mixer Relationship Specialty Start Date End Date Bobby Das MD PCP - General 07/06/[address] [place] [address] ,[address] [place] [address] documented as of this encounter
--- OUTSIDE RECORDS SUMMARY | 2022-06-23 00:25 | XMS_ITS | Encounter Summary ---
:1940 Author Organization [facility] Address [address] [place] [address] Care Team Providers Name Role Phone Bobby Das MD Primary Care Provider Reason for Visit Reason Comments Prostate Cancer Encounter Details Date Type Department Care Team Description 02/23/[address] [facility] Aries Gutierrez alignant neoplasm Visit Radiation Oncology Felix EAST MD of [facility] - [address] ([facility]) (Primary [address] [place] [address] Dx) [facility], [address] [place] [address] [address] [place] [address] Social History Tobacco Use Types Packs/Day Years Used Date Current Every Day Smoker Smokeless Tobacco: Never Used Sex Assigned at Date Recorded Not on file documented as of this encounter Progress Notes Delores Gutierrez III, MD - 02/23/2018 1111 EDT On Treatment Visit Assessment: Koko Zamora is currently receiving radiation therapy treatment and is being seen today for his weekly on treatment visit. The encounter diagnosis was Malignant neoplasm of prostate ([facility]). Assessment: Assessment Completed By: Felix Gutierrez MD (02/23/18 9392) Radiation Therapy: Cumulative RT Dose 4800 cGy Daily RT Dose 300 cGy Total RT Planned Dose 6000 cGy Chemotherapy Agent Lupron 6 months Subjective Note: General: Overall doing well, a bit of stool frequency Numeric Pain Level (Scale 1-10): 0 Physical Exam: General Appearance: Appears comfortable, no acute distress Treatment Related Toxicity: Fatigue: 0-None Diarrhea: 0-None Proctitis: 0-None Bladder Spasm: 0-None Cystitis: 0-None Incontinence: 0-None Urinary Frequency: 2-Medical Management indicated: limiting instrumental ADL Urinary Retention: 2-Placement of urinary/suprapubic/intermitt catheter indicated: medication indicated Weekly Review: Radiation Set-up Imaging Reviewed: Yes Impression: Performance Status: 0-Fully active, able to carry on all pre-disease performance without restriction Disease State: Stable Treatment Break/Deviation: No Plan: Plan: Continue per plan, Complete per plan, Follow-up Plan Comment: FU with me in 3 months, and with Dr. King Sj Gutierrez MD Radiation Oncology [phone] (office) [phone] (pager) documented in this encounter Plan of Treatment Not on filedocumented as of this encounter Visit Diagnoses Diagnosis Malignant neoplasm of prostate (HCC-CMS) (HCC) - Primary Malignant neoplasm of prostate documented in this encounter Care Teams User Experience Architect Relationship Specialty Start Date End Date Bobby Das MD PCP - General 07/06/[address] [place] [address] ,[address] [place] [phone] documented as of this encounter
--- OUTSIDE RECORDS SUMMARY | 2022-06-23 00:25 | XMS_ITS | Encounter Summary ---
:1940 Author Organization [facility] Address [address] [place] [address] Care Team Providers Name Role Phone Bobby Das MD Primary Care Provider Reason for Visit Reason Onset Date Comments Medication Management 02/16/2018 Encounter Details Date Type Department Care Team Description 02/16/2018 Orders Only [facility] Radiation De Law integrated campaign manager - [address] [id number] Social History Tobacco Use Types Packs/Day Years Used Date Current Every Day Smoker Smokeless Tobacco: Never Used Sex Assigned at Date Recorded Not on file documented as of this encounter Ordered Prescriptions Prescription Sig Dispensed Refills Start Date End Date tamsulosin (FLOMAX) 0.4 mg Take 1 Cap by mouth 30 Cap 11 02/16/2018 03/04/2019 capsule daily. documented in this encounter Plan of Treatment Not on filedocumented as of this encounter Visit Diagnoses Not on filedocumented in this encounter Care Teams Cathodic Protection Technician Relationship Specialty Start Date End Date Bobby Das MD PCP - General 07/06/[address] [place] [address],[address] [place] [address] documented as of this encounter
--- OUTSIDE RECORDS SUMMARY | 2022-06-23 00:25 | XMS_ITS | Encounter Summary ---
:1940 Author Organization [facility] Address [address] [place] [address] Care Team Providers Name Role Phone Bobby Das MD Primary Care Provider Encounter Details Date Type Department Care Team Description 03/04/2018 Documentation Visit [facility] Aries Gutierrez Radiation Oncology - III, [address] [address] [address], [place] [phone] (Wo rk) Social History Tobacco Use Types Packs/Day Years Used Date Current Every Day Smoker Smokeless Tobacco: Never Used Sex Assigned at Date Recorded Not on file documented as of this encounter Miscellaneous Notes Treatment Summary - Delores Gutierrez III, MD - 03/04/2018 1339 EDT Images from the original note were not included. RADIATION ONCOLOGY TREATMENT SUMMARY SITE, HISTOPATHOLOGY AND STAGE: [id number], PSA 12.8 [place] score 3+4 = 7 adenocarcinoma prostate. He is being treated with a short course of androgen deprivation and definitive radiation therapy. TREATMENT COURSE: Dates Field Energy Technique Daily Dose # Fractions Dose Elapsed Days 02/02/18-02/27/18 Prostate/seminal vesicles 10 MV 2 arc VMAT 3 Gy 20 60 Gy 25 The prostate and proximal seminal vesicles were treated at 2.4 Gy per day to total dose of 48 Gy. The prostate with a modest treatment expansion was treated in 2.88 Gy per day to dose of 57.6 Gy. The prostate gland with minimal expansion was treated in 3 Gy per day to dose of 60 Gy. ANDROGEN DEPRIVATION: 6 months planned, his first Lupron injection was on December 02, 2017 TOLERANCE: . Koko Zamora tolerated his radiation therapy reasonably well. He did have some increased urinary symptomatology which responded well to tamsulosin. He had mild bowel irregularity and nosignificant fatigue during his treatment. FOLLOW-UP: Koko Zamora will return to see me in three months. He will continue routine follow-upwith Dr. José. Sj Gutierrez MD Radiation Oncology [phone] (office) [phone] (pager) This note has been prepared with voice recognition software. Please excuse welding operator errors. documented in this encounter Plan of Treatment Not on filedocumented as of this encounter Visit Diagnoses Not on filedocumented in this encounter Care Teams Blintze Roller Relationship Specialty Start Date End Date Bobby Das MD PCP - General 07/06/[address] [place] [address],[address] [place] [address] documented as of this encounter
--- OUTSIDE RECORDS SUMMARY | 2022-06-23 00:25 | XMS_ITS | Encounter Summary ---
:1940 Author Organization [facility] Address [address] [place] [address] Care Team Providers Name Role Phone Abby Das MD Primary Care Provider Encounter Details Date Type Department Care Team Description 04/22/2018 Results Only [facility] Abby Das MD [phone] [place] [address],[address] [place], [place] [phone] (Wo rk) Social History Tobacco Use Types Packs/Day Years Used Date Current Every Day Smoker Smokeless Tobacco: Never Used Sex Assigned at Date Recorded Not on file documented as of this encounter Plan of Treatment Not on filedocumented as of this encounter Procedures Procedure Name Priority Date/Time Associated Diagnosis Comme [facility] SURGICAL PATHOLOGY Routine 04/22/2018 8:40 EDT Re sults for this procedure are i n the results section. documented in this encounter Results SURGICAL PATHOLOGY (04/22/2018 8:40 EDT) Pathology Report: SURGICAL PATHOLOGY REPORT [facility] Reports generated via electronic interface contain abram ginal data; LABORATORY however they are lacking the format of the original re port. SERVICES Caution should be taken when reading/interpreting unfo rmatted reports. Name: ? ETTA BAH ? Accession #: ? [id number] ? : ? 1940 (Age: 77) ??M ? Collect Date: ? 04/22/2018 ? Location: ? [facility] ? Receive Date: ? 04/23/20 18 ? Provider: ABBY DAS MD Copy to: ? Final Pathologic Diagnosis: SKIN OF EYEBROW, RIGHT, EXCISION: - Basal cell carcinoma, nodular type. - Margins of excision positive. - Lesion extends to peripheral margin of excision spe cimen. - Lesion measures approximately 0.2 mm to the deep ma rgin. Comment: These results were phoned to Dr. Abby Das's offic e. (Dr. Morris)/jamrita Document reviewed and electronically signed by: MARYCARMEN MORRIS MD Report ??Date: 04/24/2018 11:21 By the signature above, the attending physician certif ies that he/she has personally conducted a gross and/or microscopic examin ation of the described specimens and rendered or confirmed the above diagnosi s. Specimen(s) Received: R eyebrow Clinical History: Non-healing lesion, R eyebrow, hx of basal cell ca Gross Description: ? Received in formalin labelled with proper patient identification (initials F R) and not otherwise speci fied is an unoriented elliptical skin excision (0.9 x 0.4 cm and is excised to a depth of 0.2 cm). On the periphery is a dull brown a crusted lesion (0.3 x 0.3 x 0.1 cm). T he surgical margin is inked black. The specimen is serially section ed and submitted entirely as tips, reverse en face, in 1 and central sections in 2. JOSEE Darden (ASCP) 04/23/2018 10:08 AM End of Report Specimen Performing Organization Address City/State/ZIP Code Phon e Number [facility] [address] [place] [address] SERVICES documented in this encounter Visit Diagnoses Not on filedocumented in this encounter Care Teams Zipper Slide Attacher Relationship Specialty Start Date End Date Abby Das MD PCP - General 07/06/[address] [place] [address] ,[address] [place] [phone] documented as of this encounter
--- OUTSIDE RECORDS SUMMARY | 2022-06-23 00:25 | XMS_ITS | Encounter Summary ---
:1940 Author Organization [facility] Address [address] [place] [address] Care Team Providers Name Role Phone Bobby Das MD Primary Care Provider Reason for Visit Reason Comments Follow-up Encounter Details Date Type Department Care Team Description 12/02/2017 Office Visit [facility] Erlin José MD Malignant neoplasm of Urology - [address] ([facility] ([facility]) (Primary [address] [facility] [place] [address] [address], [place] [address] (Wo rk) Social History Tobacco [...] encounter Progress Notes Chino José MD - 12/02/2017 7534 EST Chief Complaint: Chief Complaint Patient presents with ??? Follow-up HPI: Koko is a 77 y.o. male with prostate cancer. I originally saw the patient and [facility] and diagnosed him with Bellamy 3+4 prostate cancer associated with a PSA of 12.8. He underwent a bone scan for staging that came back negative for metastatic disease. He is seeing me today at [facility] for a Lupron injection. He started his Casodex 1 week ago. This is in preparation for his EBRT with Dr. Gutierrez. Medications Current Outpatient Prescriptions: ??? ascorbic acid, vitamin C, (VITAMIN C) 500 mg tablet, Take 500 mg by mouth daily., Disp: , Rfl: ??? bicalutamide (CASODEX) 50 mg tablet, Take 1 Tab by mouth daily. Don't start taking until instructed by Dr. Gutierrez, Disp: 28 Tab, Rfl: 0 ??? [START [...] results found for: PSA Impression: Patient with Winifred 3+4 localized prostate cancer who is undergoing radiation therapy for treatment. Plan: 1 month Lupron injection Continue Casodex until prescription completed Follow-up in 1 month for a 3 month Lupron injection Follow-up with Dr. Gutierrez, scheduled Chino José MD oEmilee day RN - 12/02/2017 1445 EST Patient has been advised that hormonal Ablation involves the use of anti- androgens. An androgen is amale hormone needed for the production of testosterone. By depriving the cancer cells of the testosterone they need for growth, tumors regress in size and cellular activity. Side effects include gynecomastia, the enlargement of breast tissue, hot flashes, and loss of libido ( desire to have sex ). Some terminal computer operator hormonal therapy is associated with the loss of muscle mass, osteoporosis, and malaise ( loss of energy ). Consent given to treatment. Lupron 7.5 mg mixed and injected into right buttocks without incidence per Dr. José order. I was supervised by who was present and immediately available in the office suite. Emilee Kaba RN 12/02/2017 15:14 documented in this encounter Plan of Treatment Not on filedocumented as of this encounter Visit Diagnoses Diagnosis Malignant neoplasm of prostate (HCC-CMS) (HCC) - Primary Malignant neoplasm of prostate documented in this encounter Administered Medications Inactive Administered Medications - up to 3 most recent administrations Medication Order MAR Action Action Date Dose Rate Site leuprolide (LUPRON Given 12/02/2017 15:13 7.5 mg Right Gluteus Medius DEPOT) injection 7.5 mg EST 7.5 mg, intramuscular, ONCE, 1 dose, Starting on Fri12/02/17 at 1530, Until Fri12/02/17 at 1513, Routine documented in this encounter Orders Medications Ordered That Might Not Have Count Last Ord ered Date First Ordered Date Been Administered leuprolide (LUPRON DEPOT) injection 7.5 mg 1 12/02 documented in this encounter Care Teams Transcription Coordinator Relationship Specialty Start Date End Date Bobby Das MD PCP - General 07/06/[address] [place] [address],[address] [place] [address] documented as of this encounter
--- OUTSIDE RECORDS SUMMARY | 2022-06-23 00:25 | XMS_ITS | Encounter Summary ---
:1940 Author Organization [facility] Address [address] [place] [address] Care Team Providers Name Role Phone Bobby Das MD Primary Care Provider Reason for Visit Reason Comments Prostate Cancer Follow up Encounter Details Date Type Department Care Team Description 07/16/2019 Office Visit [facility] Aries Gutierrez neoplasm of Radiation Oncology - Felix EAST MD prostate ([facility]) Main [address] (Primary Dx) [address] [place] [id number] [place] [address], [place] [phone] [facility] [address] [place] [address] (Wo rk) Social History Tobacco [...] Body Mass Index 27.57 07/16/2019 0942 EDT documented in this encounter Discharge Diagnoses Diagnosis C61 Malignant neoplasm of prostate-C61[I CD-10-CM] documented in this encounter Discharge Disposition Disposition Code Departure Means Destination Auto Discharge documented in this encounter Progress Notes Delores Gutierrez III, MD - 07/16/2019 0945 EDT DIVISION OF RADIATION ONCOLOGY FOLLOW-UP NOTE DATE OF SERVICE: 07/16/2019 DIAGNOSIS AND STAGE: [id number], PSA 12.8 Winifred score 3+4 = 7 adenocarcinoma prostate. He wastreated with a short course of androgen deprivation and definitive radiation therapy. He completed his radiation therapy on February 27, 2018. He was treated with a relative hyperfractionated approach to dose of 60 Gy REGION TREATED: Prostate gland and proximal seminal vesicles INTERVAL SINCE RADIATION THERAPY: Approximately 1 year and 4 months SUBJECTIVE: Koko Zamora returns to the office for routine follow-up. I have not seen him since he completed his treatment as approximately 2 months after he did complete treatment he developed to compression fractures in his back while lifting a heavy object. This has been clearly difficult for him and has limited his activity and mobility. He is taking minimal pain medication at this point. He is being evaluated at [facility] next week for possible tuboplasty. With respect to his radiation therapy he feels that he is doing well overall, his IPSS is 6. He notes that his stools are sometimes quite firm but not otherwise bothersome. He does have erectile dysfunction. Other than a significant low back pain he has no other localizing bone pain. He does have some fatigue. Overall problems with urinary function: Moderate problem Describe urinary control: Frequent dribbling - 2 Pads/adult diapers used daily for urinary leakage: None - 0 Problems with urinary dripping/leakage: No problem - 0 Urinary Incontinence Symptom Score: 2 Pain or burning with urination: No problem - 0 Weak urine stream/incomplete bladder emptying: Moderate problem - 3 Need to urinate frequently: Moderate problem - 3 Urinary Irritation/Obstruction Symptom Score: 6 Rectal pain/urgency of bowel movements: No problem - 0 Increased frequency of bowel movements: No problem - 0 Overall problems with bowel habits: Big problem - 4 Bowel Symptom Score: 4 Ability to reach orgasm (climax): Very poor to none - 4 Describe usual quality of erections: Not firm enough for any sexual activity - 2 Problems or lack of sexual function: Moderate problem - 3 Sexual Symptom Score : 9 Hot flashes or breast tenderness/enlargement: No problem - 0 Feeling depressed: No problem - 0 Lack of energy: Small problem - 2 Vitality/Hormonal Symptom Score: 2 Total EPIC-CP score - 23 MEDICATIONS: Current Outpatient Medications: calcium carb/vit D2/minerals (CALCIUM CITRATE + ORAL) FLUTICASONE PROPIONATE (FLONASE NASAL) multivitamin (THERAGRAN) per tablet rosuvastatin (CRESTOR) 40 mg tablet tamsulosin (FLOMAX) 0.4 mg capsule No current facility-administered medications for this visit. OBJECTIVE: Pulse: 87 Temp: 36.1 ??C (97 ??F) Weight : 81.1 kg (178 lb 12.8 oz) Pain Score: 2.0 Pain Location: Back General: Very pleasant and cooperative man in no acute distress. HEENT: Unremarkable. Neck: Supple. Nodes: No palpable cervical, supra-clavicular or axillary adenopathy. Back: Nontender to percussion. Lungs: Clear to auscultation. Heart: Regular rhythm. Performance Status: 0 Lab Results Component Value Date PSA 0.1 07/16/2019 IMPRESSION AND PLAN: Mr. Koko Zamora appears to be doing well with respect to his prostate cancer. He has no evidence of tumor recurrence and no significant treatment-related complaints. He does have significant symptoms related to his vertebral fractures. I have asked him to return to see me for f ollow-up in 1 year. He states that this is a little difficult for him to driving in his discomfort however he will try a year. Delores Gutierrez III, MD This note has been prepared with voice recognition software. Please excuse insulation blanket maker errors. documented in this encounter Plan of Treatment Not on filedocumented as of this encounter Visit Diagnoses Diagnosis Malignant neoplasm of prostate (HCC-CMS) (HCC) - Primary Malignant neoplasm of prostate documented in this encounter Historical Medications This list may reflect changes made after this encounter. Medication Sig Dispensed Refills Start Date End Date calcium carb/vit D2/minerals Take by mouth. 0 (CALCIUM CITRATE + ORAL) added in this encounter Care Teams Stock Sheets Cleaner Inspector Relationship Specialty Start Date End Date Bobby Das MD PCP - General 07/06/[address] [place] [address],[address] [place] [address] documented as of this encounter
--- OUTSIDE RECORDS SUMMARY | 2022-06-23 00:25 | XMS_ITS | Encounter Summary ---
:1940 Author Organization [facility] Address [address] [place] [address] Care Team Providers Name Role Phone Bobby Das MD Primary Care Provider Encounter Details Date Type Department Care Team Description 04/12/2021 Lab Requisition [facility] Outr Resulting Lab, Pathology & Laboratory Provider [facility] [address] [place], [place] [address] Social History Tobacco Use Types Packs/Day Years Used Date Current Every Day Smoker Smokeless Tobacco: Never Used Sex Assigned at Date Recorded Not on file documented as of this encounter Plan of Treatment Not on filedocumented as of this encounter Procedures Procedure Name Priority Date/Time Associated Diagnosis Comme nts TESTOSTERONE Routine 04/12/2021 10:00 EDT Results for this procedure are i n the results section . documented in this encounter Results TESTOSTERONE (04/12/2021 10:00 EDT) Pathologist Sig nature Testosterone 269 229 - 902 ng/dL [facility] Specimen Blood - Venous blood (substance) Narrative [facility] - 04/12/2021 22:19 EDT The results of this assay can be falsley elevated due to the consumption of Biotin. Performing Organization Address City/State/ZIP Code Phon e Number [facility] [address] [place] [address] SERVICES documented in this encounter Visit Diagnoses Not on filedocumented in this encounter Care Teams Auto Wheel Alignment Specialist Relationship Specialty Start Date End Date Bobby Das MD PCP - General 07/06/[address] [place] [address] ,[address] [place] [phone] documented as of this encounter
--- OUTSIDE RECORDS SUMMARY | 2022-06-23 00:25 | XMS_ITS | Encounter Summary ---
:1940 Author Organization [facility] Address [address] [place] [address] Care Team Providers Name Role Phone Bobby Das MD Primary Care Provider Reason for Visit Reason Comments Cancer Encounter Details Date Type Department Care Team Description 02/13/2018 Radiation Therapy [facility] Isela Law Ma lignant neoplasm of Visit Radiation Oncology - RN prostat e ([facility]) [place] (Primary Dx) [address] [place] [id number] Social History Tobacco Use Types Packs/Day Years Used Date Current Every Day Smoker Smokeless Tobacco: Never Used Sex Assigned at Date Recorded Not on file documented as of this encounter Progress Notes Isela Law RN - 02/13/2018 1158 EDT On Treatment Visit Assessment: Koko Zamora is currently receiving radiation therapy treatment and is being seen today for his weekly on treatment visit. The encounter diagnosis was Malignant neoplasm of prostate ([facility]). Assessment: Assessment Completed By: Isela Law RN (02/13/18 1158) Radiation Therapy: Cumulative RT Dose 3000 cGy Daily RT Dose 300 cGy Total RT Planned Dose 6000 cGy Chemotherapy Agent Lupron X 6mos Subjective Note: General: Bowels seem to be OK now. 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 Urinationi is a bit slow with difficulty starting his stream but he talked to Dr. Gutierrez about this and he did not want to start tamsulosin yet. Nutrition: REG Pain: pelvis Numeric Pain Level (Scale 1-10): 0 Narcotic: No Psychosocial: Positive affect Review of Systems: No new issues or c/o. Physical Exam: General: Generally feels well, some modest urinary symptoms, still on ADT with only mild hot flashes. General Appearance: Appears comfortable, no acute distress Here With: Self Skin Reaction: none Treatment Related Toxicity: Fatigue: 0-None Pain: 0-None Dermatitis: 0-None Diarrhea: 0-None Constipation: 1-Occasional or intermittent S/S: occ use of stool softeners, laxatives, enema Proctitis: 0-None Cystitis: 0-None Incontinence: 0-None Urinary Frequency: 1-Present Urinary Retention: 1- Urinary/suprapubic/intermitt catheter not indicated: able to void-some residual Impression: Performance Status: 0-Fully active, able to carry on all pre-disease performance without restriction Plan: Plan: Continue per plan Plan Comment: Will consider tamsulosin if retention gets worse. For now he is not bothered by the symptoms. Medication Changes: None documented in this encounter Plan of Treatment Not on filedocumented as of this encounter Visit Diagnoses Diagnosis Malignant neoplasm of prostate (HCC-CMS) (HCC) - Primary Malignant neoplasm of prostate documented in this encounter Care Teams Show Dog Trainer Relationship Specialty Start Date End Date Bobby Das MD PCP - General 07/06/[address] [place] [address] ,[address] [place] [address] documented as of this encounter
--- NOTE | 2022-06-23 00:34 | W.ED.GENAD ---
Discharge Plan Disposition Patient Disposition: [facility] Condition: Stable Discharge Details Clinical Impression: Acute GI bleeding, ABLA (acute blood loss anemia) Admit Date/Time: 06/23/22 03:00 Admit Provider: Matt Prieto Attending Provider: Matt Prieto Primary Care Provider: Bobby Das ED Provider: Shahram Urena Discharge Data Discharge Date/Time-TO BE ENTERED AT DEPARTURE: 06/23/22 03:47 Medical Decision Making 81-year-old male with a past medical history of previous gastric ulcers that required cauterization, recent cardiac disease requiring stenting, previous DVT, currently on Xarelto and Plavix, also has a history of type 2 diabetes, previous prostate cancer, A. fib, hypertension, high cholesterol, who recently had the clot and stenting performed at [facility] as well as a GI bleed 2 weeks ago, presents today for evaluation of GI bleed. Patient states that this afternoon he had a slightly hard bowel movement compared to normal, however there was no bleeding noted at that time. However this evening about an hour or 2 prior to arrival when he woke up out of bed, felt some mild abdominal discomfort, went to the bathroom and filled the toilet with blood, and then had subsequent large clots that were passed in his underwear. Blood was bright red in color. He denies any other significant abdominal pain. No nausea or vomiting. No other complaints at this. Patient has been taking his blood thinners as directed. Exam demonstrates a well-appearing male, no tachycardia or hypotension. Abdominal exam demonstrates a nontender abdomen. Rectal exam shows no signs of anal fissure. No blood at this time. Large amount of blood and clots is noted in underwear that is present here. Symptoms are obviously concerning for a GI bleed. Uncertain if it is an upper or lower GI bleed. He has no tenderness whatsoever, so diverticulitis is certainly not high in the differential. Diverticular bleed is of concern but less likely given his previous gastric ulcers that bled, and at this time gastric ulcer with bleed is highest on the differential in conjunction with him being on Plavix and Xarelto at this time. We will start proton pump and H2 blockers, we will give oral Carafate, we will gently rehydrate, type and screen, and monitor closely and reassess. Due to his age, comorbidities and risk factors I do feel that he would benefit from admission/observation with surgical endoscopy in the morning. 1:50 AM Laboratory work-up is returned, patient's hemoglobin is 6.9. Review of [facility] labs demonstrate that his hemoglobin is 8.7 at the time of discharge 2 to 3 weeks ago. Patient's BUN is elevated at 20, creatinine is 0.7. This seems to correlate with an upper GI bleed. We will start 1 unit of PRBCs. I did contact the surgeon on-call Dr. Carrington, and she recommends transfer to [facility] because he had a procedure there to resolve this 2 to 3 weeks ago. We will do we will reach out to [facility]. 2:26 AM We reached out to [facility] and discussed the case with surgery Dr. Miguel, she defers to . [facility] so they have no beds available currently. [facility] so they also have no beds available currently. We will reach out to at [facility] for further direction. 4:02 AM Discussed the case with [facility] echo vascular tech , he recommends that the patient receive an EGD for evaluation of the bleeding. He states that the last bleed was noted in the small intestines, and there was a small AVM. He states that the patient could be admitted to [facility] if he is stable, which the patient currently is. And he states that his surgery does not feel comfortable at this time with doing an EGD and the patient can be sent down for procedure and then sent back to [facility] for continued management. I did contact Dr. Carrington and discussed with her that [facility] and [facility] are both currently following not excepting patients at this time. And I also discussed [facility] gastroenterology is plan. Dr. Carrington has requested that if we admit the patient he will be admitted under medicine secondary to the patient's multiple medical problems, and then have surgery be placed on consult. Patient remains hemodynamically stable here. Blood pressure is in the low 100s systolic. Heart rate stable. Patient is receiving 1 unit of PRBCs, and continues to get his Protonix infusion. I discussed the case with the hospitalist Dr. Prieto, he agrees with the assessment and plan will accept the patient for admission to medicine with surgery consult. I will place admission orders on his behalf. I have extensively reviewed the treatment plan and discharge instructions with the patient. I have addressed all patient concerns at this time. The patient was made aware of what symptoms to monitor for that would warrant a return to the emergency department. Discussed the plan with the patient, they demonstrate verbal understanding and agreement with our assessment and plan at this time. The documentation in this chart was dictated using [employer] dictation software. Please excuse any dictation errors. HPI General Date/Time Provider Initiated Documentation: 06/23/22 00:30. HPI Narrative: 81-year-old male with a past medical history of previous gastric ulcers that required cauterization, recent cardiac disease requiring stenting, previous DVT, currently on Xarelto and Plavix, also has a history of type 2 diabetes, previous prostate cancer, A. fib, hypertension, high cholesterol, who recently had the clot and stenting performed at [facility] as well as a GI bleed 2 weeks ago, presents today for evaluation of GI bleed. Patient states that this afternoon he had a slightly hard bowel movement compared to normal, however there was no bleeding noted at that time. However this evening about an hour or 2 prior to arrival when he woke up out of bed, felt some mild abdominal discomfort, went to the bathroom and filled the toilet with blood, and then had subsequent large clots that were passed in his underwear. Blood was bright red in color. He denies any other significant abdominal pain. No nausea or vomiting. No other complaints at this. Patient has been taking his blood thinners as directed. Related Data Home Medications Medication Instructions Recorded Confirmed rosuvastatin 40 mg tablet 1 tab PO 1XD 05/15/22 06/23/22 tamsulosin 0.4 mg capsule 1 cap PO 1XD 05/15/22 06/23/22 ascorbate calcium (vitamin C) 500 500 mg PO DAILY 06/13/22 06/23/22 mg tablet clotrimazole-betamethasone 1 1 applic topical BID 06/13/22 %-0.05 % topical cream fluticasone propionate 50 1 spray intranasal BID 06/13/22 mcg/actuation nasal spray,suspension mupirocin 2 % topical ointment 1 applic topical TID 06/13/22 06/23/22 acetaminophen 325 mg capsule 650 mg PO Q6H PRN 06/14/22 06/23/22 clopidogrel 75 mg tablet (Plavix) 75 mg PO DAILY 06/14/22 06/23/22 dapagliflozin 5 mg tablet (Farxiga) 5 mg PO DAILY 06/14/22 06/23/22 metoprolol succinate 50 mg 50 mg PO DAILY 06/14/22 06/23/22 tablet,extended release 24 hr pantoprazole 40 mg tablet,delayed 40 mg PO DAILY 06/14/22 06/23/22 release rivaroxaban 20 mg tablet (Xarelto) 20 mg PO DAILY 06/14/22 06/23/22 sildenafil 100 mg tablet 100 mg PO DAILY PRN 06/14/22 06/23/22 calcium citrate 200 mg (950 mg) 200 mg PO DAILY 06/23/22 06/23/22 tablet carboxymethylcellulose sodium 0.5 3 drp ophthalmic (eye) TID PRN 06/23/22 06/23/22 % eye drops in a dropperette (Refresh Plus) multivitamin 1 tab PO DAILY 06/23/22 06/23/22 Allergies Allergy/AdvReac Type Severity Reaction Status Date / Time aspirin AdvReac GI Bleeding Unverified 06/23/22 00:18 General Stated Complaint: GI Bleed MÓNICA: 2 Review of Systems All systems reviewed & are unremarkable except as noted in HPI and below PFSH All Active Problems (Updated 06/23/22 @ 03:41 by Shahram Urena DO) Acute GI bleeding (Acute) ABLA (acute blood loss anemia) (Acute) Medical History Abnormal stool color Allergic rhinitis Aortic stenosis Cervical radiculopathy Elevated PSA Gastric ulcer with hemorrhage GERD (gastroesophageal reflux disease) Heart failure HLD (hyperlipidemia) Insufficiency of tear film of both eyes Malignant neoplasm of prostate Malignant neoplasm of skin Nicotine dependence Type 2 diabetes mellitus Surgical History H/O heart surgery History of tonsillectomy Family History Father Cancer Mother Cardiac pacemaker Diabetes Brother Hyperlipidemia Social History Smoking/Tobacco Use Status: Former Tobacco Use Quit Date: 05/10/22 Tobacco: How many years used: 62 Smoking risk assessment performed?: Yes Alcohol Intake: former Drug use: Never Substance use type: does not use Do you feel safe at home: Yes Do you feel safe in your relationship?: Yes Exam Narrative Exam Narrative: 1.Const: Well-nourished, Well-developed, appearing stated age 2.Eyes: PERRL, no conjunctival injection, and symmetrical lids. 3.ENT: Atraumatic external nose and ears. Moist MM. Neck: Symmetric, trachea midline, No thyromegaly. 4.CVS: +S1/S2, No murmurs or gallops. Peripheral pulses 2+ and equal in all extremities. Brisk capillary refill in all extremities. 5.RESP: Unlabored respiratory effort. Clear to auscultation bilaterally. No wheezes rales or rhonchi 6.GI: Soft, Nontender/Nondistended, No hepatosplenomegaly. No guarding or rebound. Rectal exam was performed with female nurse Kirstin at bedside. No evidence of anal fissure, or active blood now. Underwear which was brought in demonstrates large clots and notable blood soaked underwear 7.MSK: Normocephalic/Atraumatic, Extremities w/o deformity or ttp No cyanosis or clubbing, Normal movement of all extremities 8.Skin: Warm, Dry. No rashes or lesions. 9.Neuro: comparator operator II-XII grossly intact. Sensation grossly intact, no focal neurologic deficits. 10.Psych: (AAO) x3. Appropriate mood and affect Course Vital Signs Vital signs: Vital Signs Temperature 36.7 C 06/23/22 00:14 Pulse 77 06/23/22 00:14 Respiratory Rate 18 06/23/22 00:14 Blood Pressure 113/78 06/23/22 00:14 Pulse Oximetry 97 06/23/22 00:14 Temperature 36.7 C 06/23/22 00:14 Temperature Source Skin 06/23/22 00:14 Pulse 77 06/23/22 00:14 Respiratory Rate 18 06/23/22 00:14 Blood Pressure 113/78 06/23/22 00:14 Pulse Oximetry 97 06/23/22 00:14 Pain Level 1 06/23/22 00:14
[2022-06-23 00:52] LABS: Abs Immature Grans 0.02 10^3/uL (0.0-0.06); Absolute Basophil Count 0.03 10^3/uL (0.0-0.2); Absolute Eosinophil Count 0.12 10^3/uL (0.0-0.7); Absolute Lymphocyte Count 1.37 10^3/uL (1.2-3.4); Absolute Monocyte Count 0.53 10^3/uL (0.1-0.8); Absolute Neutrophil Count 2.85 10^3/uL (1.2-6.7); Basophils % 0.6; Eosinophils % 2.4; HCT 22.5 % (40.0-50.0); Immature Grans % 0.4; Lymphocytes % 27.8; MCH 28.2 pg (27.0-33.0); MCHC 30.7 % (32.0-36.0); MCV 92 fL (80-95); MPV 10.2 fL (8.0-11.0); Monocytes % 10.8; Platelet Count 186 10^3/uL (130-400); RBC 2.45 10^6/uL (4.36-5.78); RDW 14.7 % (11.8-14.1); RDW-SD 49.6 fL; Source Nasal/Nares; WBC 4.92 10^3/uL (4.4-10.8)
[2022-06-23 00:58] LABS: HGB 6.9 g/dL (13.5-17.5)
[2022-06-23 01:09] LABS: ALT 32 U/L (16-63); AST 22 U/L (15-37); Albumin 3.4 g/dL (3.4-5.0); Alkaline Phosphatase 70 U/L (46-116); Anion Gap 8.3 mmol/L (3-11); BUN 20 mg/dL (7-18); Bilirubin, Total 0.5 mg/dL (0.2-1.0); CO2 27.7 mmol/L (21.0-32.0); CREATININE 0.7 mg/dL (0.70-1.30); Calcium 8.6 mg/dL (8.5-10.1); Chloride 108 mmol/L (98-107); Glucose 141 mg/dL (74-106); INR 1.2 (0.9-1.1); PTT Activated 26.3 sec (21.0-27.5); Potassium 4.1 mmol/L (3.5-5.1); Prothrombin Time 12.1 sec (9.3-11.0); Sodium 144 mmol/L (136-145); Total Protein 6.8 g/dL (6.4-8.2)
[2022-06-23] MEDS: FAMOTIDINE 20 MG in Normal Saline 100 ML 400 MG IVPB (01:52)
[2022-06-23] MEDS: Normal Saline 1,000 ML 125 ML IV (01:52)
[2022-06-23] MEDS: Sucralfate 1 GM TAB PO (01:52)
[2022-06-23] MEDS: PANTOPRAZOLE 80 MG in Normal Saline 100 ML 10 MG IV (02:00)
--- OUTSIDE RECORDS SUMMARY | 2022-06-23 03:48 | XMS_ITS | Encounter Summary ---
:1940 [place] [address] Care Team Providers Name Role Phone Bobby Das MD Primary Care Provider Encounter Details Date Type Department Care Team Description 06/13/2022 Tech Visit Vascular Lab at [facility], [place] [address] Social History Tobacco Use Types Packs/Day [...] Office Visit Vascular Surgery Jing Ghosh APRN [facility] DR VASCULAR SURGERY [place], [place] [address] (Wo rk) 09/02/2022 Clinical Support Dermatology Thai Lynn MD [facility] DR JENNY BILLY-[place]MAT [place], [place] [address] (Wo rk) 09/02/2022 Procedure visit Dermatology Jace Lynn MD [facility] DR JENNY BILLY-DERMAT [place], [place] [address] (Rebekah rojas) 09/05/2022 Appointment Cardiology Trinity Reid MD [facility] DR CARDIOLOGY [place], [place] [address] (Wo rk) 09/05/2022 Office Visit Cardiology Trinity Reid MD [facility] CARDIOLOGY [place], [place] [address] (Wo rk) documented as of this encounter Procedures Procedure Name Priority Date/Time Associated Diagnosis Comme nts JOSSELYN, LEGS, MULTIPLE Routine 06/13/2022 7:13 AM Limb ischemia R esults for this LEVELS EDT procedure are i n the results section. documented in this encounter Results JOSSELYN, legs, multiple levels (06/13/2022 7:13 AM EDT) Component Value Ref Test Analysis Performed At [facility] Range Method Time Signature VB Text Department: Vascular Surgery Lab [facility] Report Patient: [id number] (ETTA B[facility]) CPT: 13815 Referring Physician: FITO SUMMERS ?? 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 Diabetes mellitus: no Findings: Right ?Pressure [...] disorder documented in this encounter Care Teams Foam Rubber Curer Relationship Specialty Start Date End Date Bobby Das MD PCP - General 10/02/[address] [place] [address] [place] [id number] documented as of this encounter
--- OUTSIDE RECORDS SUMMARY | 2022-06-23 03:48 | XMS_ITS | Encounter Summary ---
:1940 Author Organization [facility] [address] Care Team Providers Name Role Phone Bobby Das MD Primary Care Provider Reason for Visit Auth/Cert Specialty Diagnoses / Procedures Referred By Contact Refer red To Contact Diagnoses GIB (gastrointestinal bleeding) Abe [facility] [place] [address] Referral ID Status Reason Start Date Expiration Date Visits Requ ested Visits Authorized [id number] 1 1 Encounter Details Date Type Department Care Team Description 05/31/2022 Anesthesia Event Gastroenterology at [facility] Elmer Johnson MD [facility] [place] [address] [facility] Yogi Machado CRNA [facility] [place] [address] [place] [address] Anesthesia Record Procedure Summary Procedure Name [...] fossa)Angella RN Hunter, Alysia O, RN right; [id number] catheter system; 20 gauge; no longer indicated, [...] Procedure Summary Date: 05/31/22 Room / Location: [facility] ENDO 3 / [facility] Anesthesia Start: 1603 Anesthesia Stop: 1657 Procedures: EGD, UPPER GI ENDOSCOPY (N/A Trunk) EGD, W CONTROL OF BLEEDING, ANY METHOD Diagnosis: (melena) Surgeons: Giovani Ponce MD Responsible Provider: Elmer Johnson MD Anesthesia Type: MAC ASA Status: 3 All Anesthesia Providers: Anesthesiologist: Elmer Johnson MD LIVE IN COMPANION: Yogi Dawkins CRNA Vitals Value Taken Time [...] IR Biopsy Spine 07/20/2019 Bobby Marshall MD [facility] RAD ??? IR VERTEBROPLASTY LUMBAR MULTIPLE LEVELS 07/20/2019 IR Vertebroplasty Lumbar Multiple Levels 07/20/2019 Bobby Marshall MD [facility] RAD ??? IR VERTEBROPLASTY THORACIC SINGLE LEVEL 10/25/2020 IR Vertebroplasty Thoracic Single Level 10/25/2020 Matt Chisholm MD [facility] RAD ??? PRO EMBLC/THRMBC FEMORAL POPLITEAL AORTO-ILIAC ARTERY Left 05/15/2022 EMBOLECTOMY OR THROMBECTOMY, FEMOROPOPLITEAL, AORTOILIAC ARTERY BY LEG INCISION (WRVU 19.48) performed by Fito Summers MD at [facility] MAIN OR ??? PRO UPPER GI ENDOSCOPY, CTRL BLEED 05/31/2022 EGD, W CONTROL OF BLEEDING, ANY METHOD performed by Giovani Ponce MD at [facility] ENDOSCOPY ??? PRO UPPER GI ENDOSCOPY, DIAGNOSTIC N/A 05/31/2022 EGD, UPPER GI ENDOSCOPY performed by Giovani Ponce MD at [facility] ENDOS[facility] Social History Tobacco Use ??? Smoking [...] risks discussed with patient. Plan discussed with LIVE IN COMPANION. Anesthesia Screening documented in this encounter Plan of Treatment Upcoming Encounters Date Type Specialty Care Team Description 07/02/2022 Office Visit Vascular Surgery Jing Ghosh, [employer] [facility] VASCULAR SURGERY [place], [place] [address] (Wo rk) 09/02/2022 Clinical Support Dermatology Thai Lynn MD [facility] DR JENNY BILLY-DERMAT [place], [place] [address] (Wo rk) 09/02/2022 Procedure visit Dermatology Jace Lynn MD [facility] DR JENNY BILLY-DERMAT [place], [place] [address] (Wo rk) 09/05/2022 Appointment Cardiology Trinity Reid MD [facility] CARDIOLOGY [place], [place] [address] (Wo rk) 09/05/2022 Office Visit Cardiology Trinity Reid MD [facility] CARDIOLOGY [place], [place] [address] (Wo rk) documented as of [...] mg documented in this encounter Care Teams Compensator Worker Relationship Specialty Start Date End Date Bobby Das MD PCP - General 10/02/[address] [place] [address] [place] [address] documented as of this encounter
--- OUTSIDE RECORDS SUMMARY | 2022-06-23 03:48 | XMS_ITS | Encounter Summary ---
:1940 [place] [address] Care Team Providers Name Role Phone Bobby Das MD Primary Care Provider Reason for Visit Reason Comments Dizziness Auth/Cert Specialty Diagnoses / Procedures Referred By Contact Refer red To Contact Diagnoses GIB (gastrointestinal bleeding) Abe [facility] [place] [address] Referral ID Status Reason Start Date Expiration Date Visits Requ ested Visits Authorized [id number] 1 1 Encounter Details Date Type Department Care Team Description 05/31/2022 - Hospital Encounter Intermediate Special Dixon Hinds MD [facility] [place] [address] GIB 06/02/2022 Care [place] [address] (gastrointestinal [facility] [place] [address] bleeding) ([facility] [place] [address] Dx) [place] [address] Social History Tobacco Use Types Packs/Day Years [...] Valle MD - 06/02/2022 12:48 PM EDT [facility] Medicine - Discharge Summary Patient Name: [...] switching to a different bloodthinner with the spanish professor outpatient. Call your doctor or seek medical [...] switchingto a different blood thinner with your spanish professor as an outpatient Stopped Medications - Aspirin - Valsartan - Speak with your spanish professor about the timing of restarting this Follow-up Appointments Future Appointments Date Time Provider Department Center 06/10/2022 11:00 AM Loretta Cohen MD [facility] 06/13/2022 7:30 AM Edson [place]os [facility] VAS LAB [facility] 06/13/2022 8:00 AM Fito Summers MD [facility] V SURG [facility] 06/13/2022 10:00 AM Alan Reid MD [address] Your Inpatient Medical Team at [facility] Name(s) of your inpatient provider(s): Dr. John Ames For questions regarding issues relating to your hospitalization on the Hospital Medicine Service, please contact your inpatient physician through the [facility] Teletypist [phone]. Issues after hours and on weekends will be handled by the Hospitalist staff on-call. Your Primary Care Provider Bobby Das MD [phone] Future Appointments and Orders Future Appointments and Orders Future Appointments Provider Department Dept Phone 06/10/2022 11:00 AM Loretta Cohen MD Dermatology [facility] Arrive at: [address] [place] [phone] 06/13/2022 7:30 AM Edson [place]os [place] Vascular Lab at [facility] Arrive at: [facility] [place] [facility] [phone] 06/13/2022 8:00 AM Fito Summers MD Vascular Surgery at [facility] Arrive at: [facility] 06/13/2022 10:00 AM Alan Reid MD Cardiology at [facility] Arrive at: [address] [facility] [phone] For questions regarding this document or issues relating to this hospitalization on the Medical Service, please contact your inpatient physician through the [facility] Teletypist . Issues after hours and on weekends [...] switching to a different bloodthinner with the spanish professor outpatient. Call your doctor or seek medical [...] switchingto a different blood thinner with your spanish professor as an outpatient Stopped Medications - Aspirin - Valsartan - Speak with your spanish professor about the timing of restarting this Follow-up Appointments Future Appointments Date Time Provider Department Center 06/10/2022 11:00 AM Loretta Cohen MD [facility] 06/13/2022 7:30 AM Edson [place] [facility] VAS LAB ILDA POWELL 06/13/2022 8:00 AM Fito Summers MD [facility] V SURG [facility] 06/13/2022 10:00 AM Alan Reid MD [facility] CARD 4A [facility] Your Inpatient Medical Team at [facility] Name(s) of your inpatient provider(s): Dr. John Ames For questions regarding issues relating to your hospitalization on the Hospital Medicine Service, please contact your inpatient physician through the [facility] Teletypist [phone]. Issues after hours and on weekends will be handled by the Hospitalist staff on-call. Your Primary Care Provider Bobby Das MD [phone] documented in this encounter Medications at Time [...] 04/12/20 21 (FLONASE) 50 mcg/actuation Nare route Imler, Suspension daily as needed. fluorouraciL (EFUDEX) 5 [...] spent >30 minutes (Day of Discharge Code 64637) involved in the final examination of the [...] were not included. Hospital Medicine Progress Note [facility] Team - Pager #[phone] Admit Date: 05/31/2022 Name: Koko Zamora : [...] cardiology to discuss antiplatelet (ISO bleed and shelter), following. ?? #CAD s/p stenting recently #HFrEF [...] Kurt Ames MD Internal Medicine, PGY-1 Medicine [facility] Team #[id number] Associated attestation - Jhon Jolley MD - 06/01/2022 5:02 PM EDT [facility] Medicine -- Attending Progress Note Please [...] of two midnights or is on the [facility] inpatient only procedure list (status C) due to: GI Bleeding documented in this encounter H&P Notes Mahendra Victor MD - 05/31/2022 4:33 PM EDT Images from the original note were not included. [facility] Medicine (#[id number]) History and Physical Patient info: Name: Koko Zamora : 1940 PCP: Bobby Das MD PCP phone number: [phone] Date of Admission: 05/31/2022 ( Hospital Day [...] Biopsy Spine 07/20/[address] [facility] INTERVENTIONL RAD ??? IR VERTEBROPLASTY LUMBAR MULTIPLE LEVELS 07/20/2019 IR Vertebroplasty Lumbar Multiple Levels 07/20/[address] [facility] INTERVENTIONL RAD ??? IR VERTEBROPLASTY THORACIC SINGLE LEVEL 10/25/2020 IR Vertebroplasty Thoracic Single Level 10/25/[address] [facility] INTERVENTIONL RAD ??? PRO EMBLC/THRMBC FEMORAL POPLITEAL AORTO-ILIAC ARTERY Left 05/15/2022 EMBOLECTOMY OR THROMBECTOMY, FEMOROPOPLITEAL, AORTOILIAC ARTERY BY LEG INCISION (WRVU 19.48) performed by Fito Summers MD at [facility] MAIN OR No family history on [...] 11 ??? fluticasone propionate (FLONASE) 50 mcg/actuation Imler, Suspension as needed. ??? fluorouraciL (EFUDEX) 5 [...] Gas) No results found for: PHART, PO2ART, NJC3VBN, IOI2RNW Microbiology: N/A Pertinent radiology/diagnostic studies: Recent prior [...] Full Arpita Patricia Valle MD, PGY-3 05/31/2022 [facility] Medicine # [id number] Attending Staff Admission [...] 05/31/2022 3:58 PM EDT [facility]Ps. Upon arrival to pt's [...] 10:50 AM EDT Pt brought to by [facility] Brittany Ramirez MD - 05/31/2022 10:40 AM [...] who have questions please contact the health home care nurse that requested your imaging first. Electronically signed by: Jl Zuluaga MD, [facility] ([phone]), at 05/31/2022 2:39 PM XR Chest PA & Lateral (Generic) Final [...] who have questions please contact the health home care nurse that requested your imaging first. Electronically signed by: Alan Brink MD, [facility] ([phone]), at 05/31/2022 11:33 AM ED Course as of 05/31/22 1550 FriMay 31, [...] soft blood pressures, MD made aware. LBM COMPUTER NETWORK SUPPORT SPECIALIST. 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 Patient reported blurry/hazy [...] from the original note were not included. [facility] [place] [address] INPATIENT CARDIOLOGY CONSULT NOTE Date of Consultation: 06/01/2022 Admit Date: 05/31/2022 Place of Service: IS86/IS86-A Referring Attending: REGINA HINDS COLEMAN W FRIEDMAN, HARLEY P Responsible Fuel Cell Technician: Dr. Rizo Hospital Day 1 day Reason for Consult: Antiplatelet/anticoagulation s/p pci and afib, with GI bleed HPI: Koko Zamora is a 81 y.o. male with a cardiac history significant for remote mitral valve repair (2000), pre-DM, HLD, significant alcohol use, tobacco use, Afib on xarelto, ischemic systolic heartfailure (recent [facility] 05/20/2022 with 2V disease OM1 and distal RCA, had ostial LCX and LCx stent) who presented to [facility] on 05/31/2022 for GI bleed. Patient presented [...] Biopsy Spine 07/20/[address] [facility] INTERVENTIONL RAD ??? IR VERTEBROPLASTY LUMBAR MULTIPLE LEVELS 07/20/2019 IR Vertebroplasty Lumbar Multiple Levels 07/20/[address] [facility] INTERVENTIONL RAD ??? IR VERTEBROPLASTY THORACIC SINGLE LEVEL 10/25/2020 IR Vertebroplasty Thoracic Single Level 10/25/[address] [facility] INTERVENTIONL RAD ??? PRO EMBLC/THRMBC FEMORAL POPLITEAL AORTO-ILIAC ARTERY Left 05/15/2022 EMBOLECTOMY OR THROMBECTOMY, FEMOROPOPLITEAL, AORTOILIAC ARTERY BY LEG INCISION (WRVU 19.48) performed by Fito Summers MD at [facility] MAIN OR ALLERGIES: Allergies Allergen Reactions [...] time ??? fluticasone propionate (FLONASE) 50 mcg/actuation Imler, Suspension 1 spray by Each Nare route [...] from 05/31/2022 in Intermediate Special Care Unit [facility] ED to Hosp-Admission (Discharged) from 05/15/2022 in Intermediate Cardiac Care Unit [facility] Weight 77.1 kg (170 lb) 1 [...] Neurology: Without focal deficit ECG: Echocardiogram: 05/16/2022 [facility] 05/20/2022 Coronary Angiography: Dominance: Right Left Main [...] 3.5 guiding catheter and a 3.5 [address] [place] [address] 20 Mhz. Imaging was successful. Image [...] A premounted 2.75 x 30 mm Rudy Livingston (AMPARO) was deployed with a maximum inflation [...] may require modification of this regimen. Consult [facility] Interventional Cardiology for questions. The 1 year [...] Hb drop. Unknown source. has had a [facility] with stent placed and revascularization of left lower extremity within the past two weeks, recently on anticoagulation Unknown source of bleeding TECHNIQUE: Helical CT of the abdomen and pelvis was performed before and after the intravenous administration contrast utilizing GI bleed protocol. Administered 125.0 ml of OMNIPAQUE 350.00 mg/ml. Oral contrast was not administered. COMPARISON: 05/15/2022 from [facility] FINDINGS: GI Tract: Pre-contrast: No [...] who have questions please contact the health home care nurse that requested your imaging first. Electronically signed by: Jl Zuluaga MD, [facility] ([phone]), at 05/31/2022 2:39 PM Ziopatch 48 Hrs-15 Days Indication: Paroxysmal atrial [...] who have questions please contact the health home care nurse that requested your imaging first. Electronically signed by: Alan Brink MD, [facility] ([phone]), at 05/31/2022 11:33 AM LABS Recent Labs 06/01/22 0556 06/01/22 0000 05/31/22 [...] on xarelto, ischemic systolic heart failure (recent [facility] 05/20/2022 with 2V disease OM1 and distal RCA, had ostial LCX and LCx stent), recent admission for acutelimb ischemia LL, where he had left common femoral transverse arteriotomy and primary repair, thromboembolectomy of the SFA, profunda and common femoral artery with 4 compartment fasciotomies, who presented to [facility] on 05/31/2022 for GI bleed. Cardiology consulted [...] attestation for additional insight. Rossy Anaya MD [facility] Flask Fitter, PGY-5 Inpatient Cardiology Consults Pager #[phone] Please check Qgenda for on-call cardiology consults [...] A&Ox 4. On room air. VSS. LBM: COMPUTER NETWORK SUPPORT SPECIALIST. Adequate urine output, urinal at bedside, flomax [...] surrogate would be surrogate decision maker per [place] surrogate decision making law. (Only good for 180 days) Any patient receiving care in [place] must abide by [place] law. The hierarchy for surrogate decision making [...] (i) The agent with financial power of commercial litigation attorney or a conservator appointed in accordance [...] walker - rolling Home Address confirmed as: [address] [place] [phone] Social & Family Supports: All names listed below confirmed with patient as current and correct Extended Emergency Contact Information Primary Emergency Contact: Ursula Zamora Address: [address] [place] [phone] [facility] Relation: Spouse Current Care Provided by: self [...] Type: *No Product type* / Secondary Insurance: [facility] Secondary Insurance? (Only Medicare A&B): Yes ; Prescription Coverage: Yes Preferred Pharmacy: [id number] - [address] [place] [id number] [place] Status: Patient is a : No Primary Care Provider: Bobby Das MD [phone] Patient/Caregiver Goals of Treatment: Patient plans to [...] with transition of care planning. ASH Garcia [facility] Medicine/ Medical Specialties Pager- [phone] Plan of [...] OUTCOME EVALUATION: Consult Note - Lonnie Good [facility] - 05/31/2022 9:42 PM EDT TelePharmacy Home [...] be reconciled bythe provider. [facility] Reconciliation Pharmacist at for any questions. Lonnie Good RP Op Note - Giovani Ponce MD - 05/31/2022 4:30 PM EDT DH Operative Note Patient Name: Koko Zamora : [id number] MR#: [id number] Case Date: 05/31/2022 Surgeon: Surgeon(s) and Role: [...] yrs ago was normal. He lives in [facility]. Currently light-headedness is improved. No fevers, chills, [...] Biopsy Spine 07/20/[address] [facility] INTERVENTIONL RAD ??? IR VERTEBROPLASTY LUMBAR MULTIPLE LEVELS 07/20/2019 IR Vertebroplasty Lumbar Multiple Levels 07/20/[address] [facility] INTERVENTIONL RAD ??? IR VERTEBROPLASTY THORACIC SINGLE LEVEL 10/25/2020 IR Vertebroplasty Thoracic Single Level 10/25/[address] [facility] INTERVENTIONL RAD ??? PRO EMBLC/THRMBC FEMORAL POPLITEAL AORTO-ILIAC ARTERY Left 05/15/2022 EMBOLECTOMY OR THROMBECTOMY, FEMOROPOPLITEAL, AORTOILIAC ARTERY BY LEG INCISION (WRVU 19.48) performed by Fito Summers MD at [facility] MAIN OR SOCIAL HX: Social History [...] sounds, tympanic to percussion RECTAL: performed with associate sales representative present, no overt masses, fissures, external hemorrhoids, [...] who have questions please contact the health home care nurse that requested your imaging first. Abdomen & [...] Office Visit Vascular Surgery Jing Ghosh APRN [facility] VASCULAR SURGERY [place], [place] [address] (Wo rk) 09/02/2022 Clinical Support Dermatology Thai Lynn MD [facility] DR JENNY BILLY-DERMAT [place], [place] [address] (Wo rk) 09/02/2022 Procedure visit Dermatology Jace Lynn MD [facility] DR JENNY BILLY-DERMAT [place], [place] [address] (Wo rk) 09/05/2022 Appointment Cardiology Trinity Reid MD [facility] CARDIOLOGY [place], [place] [address] (Wo rk) 09/05/2022 Office Visit Cardiology Trinity Redi MD [facility] CARDIOLOGY [place], [place] [address] (Wo rk) documented as of [...] P athologist Signature Neutrophils % 61.3 % [facility] LABORATORY Neutr Abs (ANC) 4.44 1.70 - [facility] 6.10 [facility] x10(3)/[facility] LABORATORY Lymphocytes % 25.2 % [facility] Lymphocytes Abs 1.8 0.9 - 3.2 [facility] x10(3)/[facility] LABORATORY Monocytes % 10.0 % [facility] Monocyte Abs 0.7 0.3 - 0.9 [facility] x10(3)/[facility] LABORATORY Eosinophils % 2.1 % [facility] Eosinophils Abs 0.2 0.0 - 0.4 [facility] x10(3)/[facility] LABORATORY Basophils % 0.7 % [facility] Basophils Abs 0.0 0.0 - 0.1 [facility] x10(3)/[facility] LABORATORY Immature Gran % 0.70 % [facility] Comment: Immature granulocytes(IG's)percentage an d absolute count will include metamyelocytes, myelocytes, and promyelo cytes. Blood smears from CBCs yielding IG's will be scanned manually for concor dance. If this scan disagrees with the automated IG or if promyelocytes are not ed, a manual differential will be performed. Rain Gran Abs 0.05 (H) 0.00 - 0.04 x10(3)/[facility] LABORATORY Specimen Anatomical Collection Method Collection Time Receive d Time (Source) Location / / Volume Laterality Blood 06/02/2022 8:20 AM 8:25 EDT AM EDT Resulting Agency Comment Spec In Lab Kurt Ames MD HEMATOLOGY ORDERABLES Performing Organization Address City/State/[place] [address] (ABNORMAL) Hemogram (06/02/2022 8:20 AM EDT) Analysis Performed At Patho logist Time Signature WBC 7.2 4.0 - 9.5 [facility] x10(3)/[facility] LABORATORY RBC 2.74 (L) 4.58 - [place] 5.54 [facility] x10(6)/[facility] LABORATORY Hemoglobin 8.7 (L) 13.7 - [place] 16.5 g/dL [facility] LABORATORY Hematocrit 25.7 (L) 40.5 - [facility] 48.5 % [facility] MCV 93.8 (H) 82.9 [facility] LABORATORY MCH 31.8 27.5 [facility] 32.1 pg [facility] MCHC 33.9 [address] [facility] g/dL [facility] Platelets 260 145 - 357 [facility] x10(3)/[facility] LABORATORY RDWSD 51.0 (H) 36.[address] [facility]0 [facility] LABORATORY RDWCV 14.9 (H) 11.4 - [facility] 13.8 % [facility] LABORATORY MPV 10.0 7.6 - 12.9 [facility] LABORATORY nRBC % Auto 0.0 % [facility] nRBC Abs Auto 0.000 0.000 - [facility] 0.000 [facility] x10(3)/[facility] LABORATORY Specimen Anatomical Collection Method Collection Time Receive d Time (Source) Location / / Volume Laterality Blood 06/02/2022 8:20 AM 8:25 EDT AM EDT Resulting Agency Comment Spec In Lab Kurt Ames MD HEMATOLOGY ORDERABLES Performing Organization Address City/State/[place] [address] Heparin (unfractionated) Level (06/02/2022 6:30 AM EDT) P athologist Signature Heparin UFH 0.39 IU/mL [facility] LABORATORY Comment: Heparin (anti-Xa) levels [...] Victor MD HEMATOLOGY ORDERABLES Performing Organization Address City/[facility]/[place] [address] Heparin (unfractionated) Level (06/02/2022 12:30 AM EDT) athologist Signature Heparin UFH 0.81 IU/mL [facility] LABORATORY Comment: Heparin (anti-Xa) levels [...] Victor MD HEMATOLOGY ORDERABLES Performing Organization Address City/[facility]/[place] [address] Magnesium (06/02/2022 12:30 AM EDT) athologist Signature Magnesium 0.83 0.69 - 1.07 [facility] mmol/L [facility] LABORATORY Specimen Anatomical Collection Method Collection Time Receive d Time (Source) Location / / Volume Laterality Blood 06/02/2022 12:30 06/02/2022 AM EDT 12:40 AM EDT Resulting Agency Comment Spec In Lab Mahendra Victor MD CHEMISTRY ORDERABLES Performing Organization Address City/State/[place] [address] [facility] [address]ORY Drive (ABNORMAL) Basic Metabolic Panel (non-fasting) (06/02/2022 12:30 AM EDT) athologist Signature Glucose Lvl 151 65 - 199 [facility] mg/dL [facility] LABORATORY Comment: Diabetes: >=200 mg/dL plus symp toms BUN 12 10 - 20 mg/dL [facility] LABORAT[facility] Creatinine 0.71 (L) 0.80 - 1.50 mg/dL [facility] LABOR[facility] Sodium 142 135 - 145 mmol/L [facility] LAB[facility] Potassium 3.8 3.5 - 5.0 mmol/L [facility] LAB[facility] Comment: Please note: ??Patients with WBC >100,00 0 may have falsely elevated Potassium levels. ??For accurate Potassium quantif ication in these patients send serum separator tube (gold top) for subsequent determinations. ??Contact the Clinical Chemistry Laboratory if there are any qu estions. Chloride 108 (H) 98 - 107 mmol/L [facility] CO2 24 22 - 31 mmol/L [facility] Anion Gap 10 5 - 15 mmol/L [facility] Calcium 8.1 (L) 8.5 - 10.5 mg/dL [facility] Estimated GFR 93 >=60 mL/min/1.73 m?? [facility] Comment: This patient's estimated [...] Organization Address City/State/ZIP Code Phon e Number [place] [id number] (ABNORMAL) Differential, Automated (06/01/2022 7:29 PM EDT) athologist Signature Neutrophils % 68.8 % [facility] Neutr Abs (ANC) 5.34 1.70 - [facility] 6.10 [facility] x10(3)/[facility] LABORATORY Lymphocytes % 19.6 % [facility] Lymphocytes Abs 1.5 0.9 - 3.2 [facility] x10(3)/[facility] LABORATORY Monocytes % 8.1 % [facility] Monocyte Abs 0.6 0.3 - 0.9 [facility] x10(3)/[facility] LABORATORY Eosinophils % 1.8 % [facility] Eosinophils Abs 0.1 0.0 - 0.4 [facility] x10(3)/[facility] LABORATORY Basophils % 0.8 % [facility] Basophils Abs 0.1 0.0 - 0.1 [facility] x10(3)/[facility] LABORATORY Immature Gran % 0.90 % [facility] Comment: Immature granulocytes(IG's)percentage an d absolute count will include metamyelocytes, myelocytes, and promyelo cytes. Blood smears from CBCs yielding IG's will be scanned manually for concor dance. If this scan disagrees with the automated IG or if promyelocytes are not ed, a manual differential will be performed. Rain Gran Abs 0.07 (H) 0.00 - 0.04 x10(3)/[facility] LABORATORY Specimen Anatomical Collection Method Collection Time Receive d Time (Source) Location / / Volume Laterality Blood 06/01/2022 7:29 PM 7:29 EDT PM EDT Resulting Agency Comment Spec In Lab Kurt Ames MD HEMATOLOGY ORDERABLES Performing Organization Address City/State/[place] [address] (ABNORMAL) Hemogram (06/01/2022 7:29 PM EDT) Analysis Performed At Patho logist Time Signature WBC 7.8 4.0 - 9.5 [facility] x10(3)/[facility] LABORATORY RBC 2.65 (L) 4.58 [facility] x10(6)/[facility] LABORATORY Hemoglobin 8.3 (L) 13.7 [facility] 16.5 g/dL [facility] Hematocrit 24.8 (L) 40.[address] [facility] 48.5 % [facility] MCV 93.6 (H) 82.9 [facility] LAB[facility]ATORY MCH 31.3 27.5 [facility] 32.1 pg [facility] MCHC 33.5 32.0 [facility] 35.7 g/dL [facility] Platelets 263 145 - 357 [facility] x10(3)/[facility] LABORATORY RDWSD 52.8 (H) 36.0 [facility].0 [facility] LABORATORY RDWCV 15.4 (H) 11.4 - [facility] 13.8 % [facility] LABORATORY MPV 10.4 7.6 - 12.9 [facility] LABORATORY nRBC % Auto 0.0 % [facility] nRBC Abs Auto 0.000 0.000 - [facility] 0.000 [facility] x10(3)/[facility] LABORATORY Specimen Anatomical Collection Method Collection Time Receive d Time (Source) Location / / Volume Laterality Blood 06/01/2022 7:29 PM 2 7:29 EDT PM EDT Resulting Agency Comment Spec In Lab Kurt Ames MD HEMATOLOGY ORDERABLES Performing Organization Address City/[facility]/[place] [address] Heparin (unfractionated) Level (06/01/2022 7:29 PM EDT) P athologist Signature Heparin UFH 0.81 IU/mL [facility] LABORATORY Comment: Heparin (anti-Xa) levels [...] Victor MD HEMATOLOGY ORDERABLES Performing Organization Address City/[facility]/[place] [address] (ABNORMAL) Heparin (unfractionated) Level (06/01/2022 11:32 AM EDT) Patholo gist Method Time Signature Heparin UFH 1.05 IU/mL [facility] (Critical) [facility] LABORATORY Comment: Critical Result called by ?? FINDTM CRI TICAL Results read back by: ? iGana Deng at 2022-06-01 11:46:34 Heparin (anti-Xa) levels [...] Organization Address City/State/[place] [address] (ABNORMAL) Differential, Automated (06/01/2022 5:56 AM EDT) [facility] Method Time Signature Neutrophils % 62.7 % [facility] LABORATORY Neutr Abs (ANC) 6.11 (H) 1.70 - [facility] 6.10 [facility] x10(3)/[facility] LABORATORY Lymphocytes % 23.5 % [facility] LABORATORY Lymphocytes Abs 2.3 0.9 - 3.2 [facility] x10(3)/[facility] LABORATORY Monocytes % 10.0 % [facility] LABORATORY Monocyte Abs 1.0 (H) 0.3 - 0.9 [facility] x10(3)/[facility] LABORATORY Eosinophils % 2.2 % [facility] LABORATORY Eosinophils Abs 0.2 0.0 - 0.4 [facility] x10(3)/[facility] LABORATORY Basophils % 0.9 % [facility] LABORATORY Basophils Abs 0.1 0.0 - 0.1 [facility] x10(3)/[facility] LABORATORY Immature Gran % 0.70 % [facility] LABORATORY Comment: Immature granulocytes(IG's)percentage an d absolute count will include metamyelocytes, myelocytes, and promyelo cytes. Blood smears from CBCs yielding IG's will be scanned manually for tracy armstrong. If this scan disagrees with the automated IG or if promyelocytes are not ed, a manual differential will be performed. Rain Gran Abs 0.07 (H) 0.00 - 0.04 x10(3)/[facility] LABORATORY Specimen Anatomical Collection Method Collection Time Receive d Time (Source) Location / / Volume Laterality Blood 06/01/2022 5:56 AM 6:05 EDT AM EDT Resulting Agency Comment Spec In Lab Arpita Valle MD HEMATOLOGY ORDERABLES Performing Organization Address City/State/ZIP Code Phon e Number [place] [id number] Drive (ABNORMAL) Hemogram (06/01/2022 5:56 AM EDT) Analysis Performed At Patho logist Time Signature WBC 9.7 (H) 4.0 - 9.5 [facility] x10(3)/[facility] LABORATORY RBC 2.83 (L) 4.58 [facility]54 [facility] x10(6)/[facility] LABORATORY Hemoglobin 9.0 (L) 13.7 [facility] g/dL [facility] LABORATORY Hematocrit 26.7 (L) 40.5 - [facility] 48.5 % [facility] LABORATORY MCV 94.3 (H) 82.9 [facility].1 [facility] LABORATORY MCH 31.8 27.5 - [facility] 32.1 pg [facility] LABORATORY MCHC 33.7 32.0 [facility] 35.7 g/dL [facility] LABORATORY Platelets 250 145 - 357 [facility] x10(3)/[facility] LABORATORY RDWSD 54.3 (H) 36.0 - [facility] 45.0 [facility] LABORATORY RDWCV 15.9 (H) 11.4 - [facility] 13.8 % [facility] LABORATORY MPV 10.5 7.6 - 12.9 [facility] LABORATORY nRBC % Auto 0.0 % [facility] LABORATORY nRBC Abs Auto 0.000 0.000 - [facility] 0.000 [facility] x10(3)/[facility] LABORATORY Specimen Anatomical Collection Method Collection Time Receive d Time (Source) Location / / Volume Laterality Blood 06/01/2022 5:56 AM 2 6:05 EDT AM EDT Resulting Agency Comment Spec In Lab Arpita Valle MD HEMATOLOGY ORDERABLES Performing Organization Address City/[facility]/ZIP Code Phon e Number [address] Heparin (unfractionated) Level (06/01/2022 4:30 AM EDT) P athologist Signature Heparin UFH 0.68 IU/mL [facility] LABORATORY Comment: Heparin (anti-Xa) levels [...] Organization Address City/State/[place] [address] (ABNORMAL) Urinalysis with reflex Culture (06/01/2022 4:00 AM EDT) Patholo gist Method Time Signature Glucose UA 500 Negative [facility] (Critical) mg/dL [facility] LABORATORY Comment: Urinalysis result NOT critical without a combination of Glucose greater than or equal to 500 mg/dL AND Ketones greate r than or equal to 80 mg/dL Protein UA Negative Negative mg/dL [facility] LABORATORY Bilirubin UA Negative Negative mg/dL [facility] LABORATORY Comment: Clinical correlation required for positi ve Urine Bilirubin results as false positive may occur with some drugs and d rug related products. If a false positive is suspected a serum total bili quarles should be considered if clinically indicated. Urobilinogen UA Normal Normal mg/dL [facility] LABORATORY pH UA 6.0 5.0 - 8.0 [facility] LABORATORY Blood UA Negative Negative mg/dL [facility] LABORATORY Ketones UA Negative Negative mg/dL [facility] LABORATORY Nitrite UA Negative Negative [facility] LABORATORY Leukocytes UA Negative Negative [facility] LABORATORY Appearance UA Clear Clear [facility] LABORATORY Spec [place] UA >=1.030 (A) 1.005 - 1.030 [facility] LABORATORY Color UA Yellow Yellow [facility] LABORATORY Culture Reflexed No [facility] LABORATORY Specimen Anatomical Collection Method Collection Time Receive d Time (Source) Location / / Volume Laterality Clean Catch 06/01/2022 4:00 AM 2 4:26 Urine EDT AM EDT Resulting Agency Comment Spec In Lab Mahendra Victor MD URINE ORDERABLES Performing Organization Address City/[facility]/ZIP Code Phon e Number [address] Magnesium (06/01/2022 1:00 AM EDT) P athologist Signature Magnesium 0.93 0.69 - 1.07 [facility] mmol/L [facility] LABORATORY Specimen Anatomical Collection Method Collection Time Receive d Time (Source) Location / / Volume Laterality Blood 06/01/2022 1:00 AM 2 1:37 EDT AM EDT Resulting Agency Comment Spec In Lab Mahendra Victor MD CHEMISTRY ORDERABLES Performing Organization Address City/[facility]/[place] [address] (ABNORMAL) Basic Metabolic Panel (non-fasting) (06/01/2022 1:00 AM EDT) P athologist Signature Glucose Lvl 148 65 - 199 [facility] mg/dL [facility] LABORATORY Comment: Diabetes: >=200 mg/dL plus symp toms BUN 23 (H) 10 - 20 mg/dL [facility] LABORATORY Creatinine 0.78 (L) 0.80 - 1.50 mg/dL [facility] LABORATORY Sodium 141 135 - 145 mmol/L [facility] LABORATORY Potassium 4.0 3.5 - 5.0 mmol/L [facility] LABORATORY Comment: Please note: ??Patients with WBC >100,00 0 may have falsely elevated Potassium levels. ??For accurate Potassium quantif ication in these patients send serum separator tube (gold top) for subsequent determinations. ??Contact the Clinical Chemistry Laboratory if there are any qu estions. Chloride 108 (H) 98 - 107 mmol/L [facility] LABORATORY CO2 24 22 - 31 mmol/L [facility] LABORATORY Anion Gap 9 5 - 15 mmol/L [facility] LABORATORY Calcium 8.6 8.5 - 10.5 mg/dL [facility] LABORATORY Estimated GFR 91 >=60 mL/min/1.73 m?? [facility] LABORATORY Comment: This patient's estimated [...] Organization Address City/State/ZIP Code Phon e Number [address] (ABNORMAL) Differential, Automated (06/01/2022 12:00 AM EDT) P athologist Signature Neutrophils % 64.6 % [facility] LABORATORY Neutr Abs (ANC) 5.60 1.70 - [facility] 6.10 [facility] x10(3)/[facility] LABORATORY Lymphocytes % 22.4 % [facility] LABORATORY Lymphocytes Abs 1.9 0.9 - 3.2 [facility] x10(3)/[facility] LABORATORY Monocytes % 9.5 % [facility] LABORATORY Monocyte Abs 0.8 0.3 - 0.9 [facility] x10(3)/[facility] LABORATORY Eosinophils % 2.1 % [facility] LABORATORY Eosinophils Abs 0.2 0.0 - 0.4 [facility] x10(3)/[facility] LABORATORY Basophils % 0.6 % [facility] LABORATORY Basophils Abs 0.0 0.0 - 0.1 [facility] x10(3)/[facility] LABORATORY Immature Gran % 0.80 % [facility] LABORATORY Comment: Immature granulocytes(IG's)percentage an d absolute count will include metamyelocytes, myelocytes, and promyelo cytes. Blood smears from CBCs yielding IG's will be scanned manually for concor dance. If this scan disagrees with the automated IG or if promyelocytes are not ed, a manual differential will be performed. Rain Gran Abs 0.07 (H) 0.00 - 0.04 x10(3)/[facility] LABORATORY Specimen (Source) Anatomical Collection Method Collection Time Re ceived Time Location / / Volume Laterality Blood 06/01/2022 06/01/2022 12:1 0 AM EDT Resulting Agency Comment Spec In Lab Arpita Valle MD HEMATOLOGY ORDERABLES Performing Organization Address City/State/[place] [address] (ABNORMAL) Hemogram (06/01/2022 12:00 AM EDT) Analysis Performed At Patho logist Time Signature WBC 8.7 4.0 - 9.5 [facility] x10(3)/[facility] LABORATORY RBC 2.77 (L) 4.58 - [facility] 5.54 [facility] x10(6)/[facility] LABORATORY Hemoglobin 8.6 (L) 13.7 [facility] g/dL [facility] LABORATORY Hematocrit 25.7 (L) 40.5 [facility] 48.5 % [facility] LABORATORY MCV 92.8 82.[address] [facility] LABORATORY MCH 31.0 27.5 [facility] 32.1 pg [facility] LABORATORY MCHC 33.5 32.0 [facility] 35.7 g/dL [facility] LABORATORY Platelets 260 145 - 357 [facility] x10(3)/[facility] LABORATORY RDWSD 51.9 (H) 36.0 [facility] 45.0 [facility] LABORATORY RDWCV 15.5 (H) 11.4 - [facility] 13.8 % [facility] LABORATORY MPV 10.4 7.6 - 12.9 [facility] LABORATORY nRBC % Auto 0.0 % [facility] LABORATORY nRBC Abs Auto 0.000 0.000 - [facility] 0.000 [place] 640760(3)/[facility] LABORATORY Specimen (Source) Anatomical Collection Method Collection Time Re ceived Time Location / / Volume Laterality Blood 06/01/2022 06/01/2022 12:1 0 AM EDT Resulting Agency Comment Spec In Lab Arpita Valle MD HEMATOLOGY ORDERABLES Performing Organization Address City/State/[place] [address] (ABNORMAL) Differential, Automated (05/31/2022 9:17 PM EDT) P athologist Signature Neutrophils % 59.6 % [facility] LABORATORY Neutr Abs (ANC) 3.98 1.70 - [facility] 6.10 [facility] x10(3)/[facility] LABORATORY Lymphocytes % 27.5 % [facility] LABORATORY Lymphocytes Abs 1.8 0.9 - 3.2 [facility] x10(3)/[facility] LABORATORY Monocytes % 9.1 % [facility] LABORATORY Monocyte Abs 0.6 0.3 - 0.9 [facility] x10(3)/[facility] LABORATORY Eosinophils % 2.4 % [facility] LABORATORY Eosinophils Abs 0.2 0.0 - 0.4 [facility] x10(3)/[facility] LABORATORY Basophils % 0.7 % [facility] LABORATORY Basophils Abs 0.0 0.0 - 0.1 [facility] x10(3)/[facility] LABORATORY Immature Gran % 0.70 % [facility] LABORATORY Comment: Immature granulocytes(IG's)percentage an d absolute count will include metamyelocytes, myelocytes, and promyelo cytes. Blood smears from CBCs yielding IG's will be scanned manually for concor dance. If this scan disagrees with the automated IG or if promyelocytes are not ed, a manual differential will be performed. Rain Gran Abs 0.05 (H) 0.00 - 0.04 x10(3)/[facility] LABORATORY Specimen Anatomical Collection Method Collection Time Receive d Time (Source) Location / / Volume Laterality Blood 05/31/2022 9:17 PM 9:25 EDT PM EDT Resulting Agency Comment Spec In Lab Arpita Valle MD HEMATOLOGY ORDERABLES Performing Organization Address City/State/[place] [address] (ABNORMAL) Hemogram (05/31/2022 9:17 PM EDT) Analysis Performed At Patho logist Time Signature WBC 6.7 4.0 - 9.5 [facility] x10(3)/[facility] LABORATORY RBC 2.74 (L) 4.58 - [facility] 5.54 [facility] x10(6)/[facility] LABORATORY Hemoglobin 8.5 (L) 13.7 - [facility] 16.5 g/dL [facility] LABORATORY Hematocrit 25.7 (L) 40.5 [facility] 48.5 % [facility] LABORATORY MCV 93.8 (H) 82.9 - [facility] 93.1 [facility] LABORATORY MCH 31.0 [facility].[address] [facility]1 pg [facility] LABORATORY MCHC 33.1 32.0 - [facility] 35.7 g/dL [facility] LABORATORY Platelets 233 145 - 357 [facility] x10(3)/[facility] LABORATORY RDWSD 51.9 (H) 36.0 [facility].0 [facility] LABORATORY RDWCV 15.3 (H) 11.4 - [facility] 13.8 % [facility] LABORATORY MPV 10.3 7.6 - 12.9 [facility] LABORATORY nRBC % Auto 0.0 % [facility] LABORATORY nRBC Abs Auto 0.000 0.000 - [facility] 0.000 [facility] x10(3)/[facility] LABORATORY Specimen Anatomical Collection Method Collection Time Receive d Time (Source) Location / / Volume Laterality Blood 05/31/2022 9:17 PM 9:25 EDT PM EDT Resulting Agency Comment Spec In Lab Arpita Valle MD HEMATOLOGY ORDERABLES Performing Organization Address City/State/[place] [address] Transfuse RBC (05/31/2022 7:36 PM EDT) Regina Hinds MD NURSING TREATMENT ORDERABLES - BLOOD ADMIN Transfuse RBC (05/31/2022 7:36 PM EDT) Regina Hinds MD NURSING TREATMENT ORDERABLES - BLOOD ADMIN UPPER GI ENDOSCOPY (05/31/2022 3:37 PM EDT) Component Value Ref Test Analysis Performed At [facility] Range Method Time Signature UPPER GI [facility] PROVATION ENDOSCOPY Endoscopy Procedure Date: 05/31/2022 3:37 PM ? Patient Name: Koko Zamora ? Date of : 1940 ? Age: 81 ? Order #: [id number] ? Instrument Name: [id number] ? Procedure: ? Upper GI endoscopy Indications: [...] Procedure Code(s): ? --- Professional --- ? 58667, Esophagogastroduode noscopy, ? flexible, transoral; with control [...] stomach ? and duodenum CPT copyright 202 [employer]. All rights reserved. The codes documented in this report are preliminary and upon meat pickler review may be revised to meet current [...] who have questions please contact the health home care nurse that requested your imaging first. ? Electronically signed by: Jl walter MD, [facility] ([phone]), at 05/31/2022 2:39 PM Narrative 05/31/2022 2:39 [...] contrast was not administered. COMPARISON: 05/15/2022 from [facility] FINDINGS: GI Tract: Pre-contrast: No bowel [...] enlarged lymph nodes. Vasculature: Patent common iliac, blanket winder helper al iliac, and common femoral arteries bilaterally. [...] contrast was not administered. COMPARISON: 05/15/2022 from [facility] FINDINGS: GI Tract: Pre-contrast: No bowel [...] enlarged lymph nodes. Vasculature: Patent common iliac, blanket winder helper al iliac, and common femoral arteries bilaterally. [...] ho have questions please contact the health home care nurse that requested your imaging first. Regina Hinds MD IMG CT ORDERABLES Type and Screen Validity (05/31/2022 1:43 PM EDT) [facility] Method Time Signature T&S only valid [facility] LABORATORY Comment: This Type and Screen result is only valid at the [facility] Hospital Specimen Anatomical Collection Method Collection Time Receive d Time (Source) Location / / Volume Laterality Blood 05/31/2022 1:43 PM 2 1:57 EDT PM EDT Resulting Agency Comment Spec In Lab Regina Hinds MD BLOOD BANK ORDERABLES Performing Organization Address City/State/[place] [address] ABORH Recheck Status (05/31/2022 1:43 PM EDT) [facility] Method Time Signature ABORH Type Completed [facility] LABORATORY Specimen Anatomical Collection Method Collection Time Receive d Time (Source) Location / / Volume Laterality Blood 05/31/2022 1:43 PM 2 1:57 EDT PM EDT Resulting Agency Comment Spec In Lab Regina Hinds MD BLOOD BANK ORDERABLES Performing Organization Address City/[facility]/[place]IP [place] [address] Antibody screen (05/31/2022 1:43 PM EDT) [facility] Method Time Signature Ab Screen Negative [facility] LABORATORY Expires at 06/03/2022 [facility] [id number] on: [facility] LABORATORY Specimen Anatomical Collection Method Collection Time Receive d Time (Source) Location / / Volume Laterality Blood 05/31/2022 1:43 PM 2 1:57 EDT PM EDT Resulting Agency Comment Spec In Lab Regina Hinds MD BLOOD BANK ORDERABLES Performing Organization Address City/[facility]/[place] [address] ABO/Rh Typing (05/31/2022 1:43 PM EDT) P athologist Signature ABORh Type O Pos [facility] LABORATORY Specimen Anatomical Collection Method Collection Time Receive d Time (Source) Location / / Volume Laterality Blood 05/31/2022 1:43 PM 2 1:57 EDT PM EDT Resulting Agency Comment Spec In Lab Regina Hinds MD BLOOD BANK ORDERABLES Performing Organization Address City/[facility]/ZIP Code Phon e Number [address] Prepare RBC (05/31/2022 1:35 PM EDT) P athologist Signature Dispensed? Yes [facility] LABORATORY Specimen Anatomical Collection Method Collection Time Receive d Time (Source) Location / / Volume Laterality Blood 05/31/2022 1:35 PM 2 1:30 EDT PM EDT Regina Hinds MD BLOOD BANK ORDERABLES Performing Organization Address City/State/ZIP Code Phon e Number [address] Prepare RBC (05/31/2022 1:25 PM EDT) P athologist Signature Dispensed? Yes [facility] LABORATORY Specimen Anatomical Collection Method Collection Time Receive d Time (Source) Location / / Volume Laterality Blood 05/31/2022 1:25 PM 2 1:23 EDT PM EDT Regina Hinds MD BLOOD BANK ORDERABLES Performing Organization Address City/[facility]/ZIP Code Phon e Number [address] (ABNORMAL) Differential, Automated (05/31/2022 12:44 PM EDT) P athologist Signature Neutrophils % 62.0 % [facility] LABORATORY Neutr Abs (ANC) 4.71 1.70 - [facility] 6.10 [facility] x10(3)/[facility] LABORATORY Lymphocytes % 24.1 % [facility] LABORATORY Lymphocytes Abs 1.8 0.9 - 3.2 [facility] x10(3)/[facility] LABORATORY Monocytes % 10.8 % [facility] LABORATORY Monocyte Abs 0.8 0.3 - 0.9 [facility] x10(3)/[facility] LABORATORY Eosinophils % 1.6 % [facility] LABORATORY Eosinophils Abs 0.1 0.0 - 0.4 [facility] x10(3)/[facility] LABORATORY Basophils % 0.7 % [facility] LABORATORY Basophils Abs 0.0 0.0 - 0.1 [facility] x10(3)/[facility] LABORATORY Immature Gran % 0.80 % [facility] LABORATORY Comment: Immature granulocytes(IG's)percentage an d absolute count will include metamyelocytes, myelocytes, and promyelo cytes. Blood smears from CBCs yielding IG's will be scanned manually for concor dance. If this scan disagrees with the automated IG or if promyelocytes are not ed, a manual differential will be performed. Rain Gran Abs 0.06 (H) 0.00 - 0.04 x10(3)/[facility] LABORATORY Specimen Anatomical Collection Method Collection Time Receive d Time (Source) Location / / Volume Laterality Blood 05/31/2022 12:44 05/31/2022 PM EDT 12:57 PM EDT Resulting Agency Comment Spec In Lab Brittany Ramirez MD HEMATOLOGY ORDERABLES Performing Organization Address City/State/[place] [address] (ABNORMAL) Hemogram (05/31/2022 12:44 PM EDT) Analysis Performed At Patho logist Time Signature WBC 7.6 4.0 - 9.5 [facility] x10(3)/[facility] LABORATORY RBC 2.11 (L) 4.58 [facility] x10(6)/[facility] LABORATORY Hemoglobin 6.9 (L) 13.7 - [facility] 16.5 g/dL [facility] LABORATORY Hematocrit 20.8 (L) 40.5 - [facility] 48.5 % [facility] LABORATORY MCV 98.6 (H) 82.9 - [facility] 93.1 fL [facility] LABORATORY MCH 32.7 (H) 27.5 - [facility] 32.1 pg [facility] LABORATORY MCHC 33.2 32.0 - [facility] 35.7 g/dL [facility] LABORATORY Platelets 255 145 - 357 [facility] x10(3)/[facility] LABORATORY RDWSD 47.7 (H) 36.0 - [facility] 45.0 [facility] LABORATORY RDWCV 13.4 11.4 - [facility] 13.8 % [facility] LABORATORY MPV 10.7 7.6 - 12.9 [facility] LABORATORY nRBC % Auto 0.0 % [facility] LABORATORY nRBC Abs Auto 0.000 0.000 - [facility] 0.000 [facility] x10(3)/[facility] LABORATORY Specimen Anatomical Collection Method Collection Time Receive d Time (Source) Location / / Volume Laterality Blood 05/31/2022 12:44 05/31/2022 PM EDT 12:57 PM EDT Resulting Agency Comment Spec In Lab Brittany Ramirez MD HEMATOLOGY ORDERABLES Performing Organization Address City/State/[place] [address] (ABNORMAL) BLOOD GAS 2 VENOUS (05/31/2022 11:24 AM EDT) P athologist Signature pH [place] 7.38 7.32 - [facility] 7.42 [facility] LABORATORY pCO2 [place] 40 (L) 41 - 51 [facility] LABORATORY pO2 [place] 18 (L) 25 - 40 [facility] LABORATORY HCO3 [place] 23.3 mmol/L [facility] LABORATORY BE Marco [place] -1.8 mmol/L [facility] LABORATORY Hgb Blood Gas 7.0 (L) 13.7 - [facility] 16.5 g/dL [facility] LABORATORY O2HB [place] 24.3 % [facility] LABORATORY COHB [place] 1.4 % [facility] LABORATORY Comment: Nonsmokers: 0.5-1.5% COHB Smokers: Variable, but usually less than 10% Toxic: 20-30% COHB Lethal: Greater than 60% COHB METHB [place] 1.7 (H) <=1.5 % [facility] LABORATORY Na Whole Blood 137 135 - 145 mmol/L [facility] LABORATORY K Whole Blood 3.9 3.5 - 5.0 mmol/L [facility] LABORATORY Comment: Please note: Patients with WBC >100,000 may have falsely elevated Potassium levels. Contact the Clinical Chemistry L aboratory if there are any questions. ICa Whole Blood 1.19 1.15 - 1.33 mmol/L [facility] LABORATORY Comment: Note: ??Total bilirubin higher than 20 m g/dL may lead to falsely low ionized calcium. CL Whole Blood 107 98 - 107 mmol/L [facility] LABORATORY Gluc Whole Bld 204 (H) 65 - 199 mg/dL [facility] Comment: Diabetes: >=200 mg/dL plus symp toms Lactate WB 1.4 0.5 - 2.2 mmol/L [facility] BGas Source Venous [facility] Specimen Anatomical Collection Method Collection Time Receive d Time (Source) Location / / Volume Laterality Blood 05/31/2022 11:24 05/31/2022 AM EDT 11:24 AM EDT Regina Hinds MD CHEMISTRY ORDERABLES Performing Organization Address City/[facility]/[place] [address] TSH [place] (05/31/2022 11:20 AM EDT) P athologist Signature TSH 1.67 0.27 - 4.20 [facility] mcIU/mL [facility] Comment: Reference Interval (mcIU/mL): Females: ??First Trimester: 0.23-3.88 ??Second Trimester: 0.22-3.90 ??Third Trimester: 0.44-4.66 Specimen Anatomical Collection Method Collection Time Receive d Time (Source) Location / / Volume Laterality Blood 05/31/2022 11:20 05/31/2022 AM EDT 11:28 AM EDT Resulting Agency Comment Spec In Lab Regina Hinds MD CHEMISTRY ORDERABLES Performing Organization Address City/State/[place] [address] XR Chest PA & [...] who have questions please contact the health home care nurse that requested your imaging first. ? Electronically signed by: Alan strong MD, [facility] ([phone]), at 05/31/2022 11:33 AM Narrative 05/31/2022 11:33 AM EDT EXAMINATION: XR [...] ho have questions please contact the health home care nurse that requested your imaging first. Regina Hinds MD IMG DX ORDERABLES Lipase (05/31/2022 10:50 AM EDT) athologist Signature Lipase 41 0 - 60 [facility] unit/L [facility] Specimen Anatomical Collection Method Collection Time Receive d Time (Source) Location / / Volume Laterality Blood Venous Draw / 05/31/2022 10:50 05/31/2022 Unknown AM EDT 11:11 AM EDT Resulting Agency Comment Spec In Lab Zain Champion MD CHEMISTRY ORDERABLES Performing Organization Address City/State/[place] [address] (ABNORMAL) Hepatic Function Panel (05/31/2022 10:50 AM EDT) Analysis Performed At Patho logist Time Signature Total Protein 6.4 6.1 - 8.0 [facility] XIAO g/dL [facility] Albumin 4.1 3.2 - 5.2 [facility] XIAO g/dL [facility] AST 24 0 - 39 [place] unit/L [facility] ALT 44 0 - 55 [facility] XIAO unit/L [facility] Alk Phos 63 40 - 130 [facility] XIAO unit/L [facility] Total <0.2 (L) 0.2 - 1.3 [facility] Bilirubin mg/dL [facility] Bili, Direct 0.1 0.0 - [address] [facility] [address] Specimen Anatomical Collection Method Collection Time Receive d Time (Source) Location / / Volume Laterality Blood Venous Draw / 05/31/2022 10:50 05/31/2022 Unknown AM EDT 11:11 AM EDT Resulting Agency Comment Spec In Lab Zain Champion MD CHEMISTRY ORDERABLES Performing Organization Address City/State/ZIP Code Phon e Number [address] Blue Tube HOLD (05/31/2022 10:50 AM EDT) P athologist Signature Blue Hold Sample in [facility]. [facility] Specimen Anatomical Collection Method Collection Time Receive d Time (Source) Location / / Volume Laterality Blood Venous Draw / 05/31/2022 10:50 05/31/2022 Unknown AM EDT 11:05 AM EDT Brittany Ramirez MD HEMATOLOGY ORDERABLES Performing Organization Address City/[facility] [place]/ZIP Code Phon e Number [address] (ABNORMAL) Differential, Automated (05/31/2022 10:50 AM EDT) P athologist Signature Neutrophils % 66.9 % [facility] Neutr Abs (ANC) 5.58 1.70 - [facility] 6.10 [facility] x10(3)/[facility]ORY Lymphocytes % 22.2 % [facility] Lymphocytes Abs 1.8 0.9 - 3.2 [facility] x10(3)/[facility] LABORATORY Monocytes % 7.8 % [facility] Monocyte Abs 0.6 0.3 - 0.9 [facility] x10(3)/[facility] LABORATORY Eosinophils % 1.2 % [facility] Eosinophils Abs 0.1 0.0 - 0.4 [facility] x10(3)/[facility]ATORY Basophils % 0.7 % [facility] Basophils Abs 0.1 0.0 - 0.1 [facility] x10(3)/[facility] LABORATORY Immature Gran % 1.20 % [facility] Comment: Immature granulocytes(IG's)percentage an d absolute count will include metamyelocytes, myelocytes, and promyelo cytes. Blood smears from CBCs yielding IG's will be scanned manually for concor dance. If this scan disagrees with the automated IG or if promyelocytes are not ed, a manual differential will be performed. Rain Gran Abs 0.10 (H) 0.00 - 0.04 x10(3)/[facility] LABORATORY Specimen Anatomical Collection Method Collection Time Receive d Time (Source) Location / / Volume Laterality Blood 05/31/2022 10:50 05/31/2022 AM EDT 11:03 AM EDT Resulting Agency Comment Spec In Lab Brittany Ramirez MD HEMATOLOGY ORDERABLES Performing Organization Address City/State/[place] [address] (ABNORMAL) Hemogram (05/31/2022 10:50 AM EDT) Analysis Performed At Patho logist Time Signature WBC 8.3 4.0 - 9.5 [facility] x10(3)/[facility]ATORY RBC 2.26 (L) 4.58 [facility] 5.54 [facility] x10(6)/[facility]ATORY Hemoglobin 7.4 (L) 13.7 - [facility] 16.5 g/dL [facility] Hematocrit 22.3 (L) 40.5 - [facility] 48.5 % [facility] MCV 98.7 (H) 82.9 - [facility] 93.1 [facility] LABORATORY MCH 32.7 (H) 27.5 - [facility] 32.1 [facility] LABORATORY MCHC 33.2 32.0 - [facility] 35.7 g/dL [facility] Platelets 283 145 - 357 [facility] x10(3)/[facility] LABORATORY RDWSD 47.0 (H) 36.0 - [facility] 45.0 [facility] RDWCV 13.4 11.4 - [facility] [place] 13.8 % [facility] MPV 10.8 7.6 - 12.9 [facility] nRBC % Auto 0.0 % [facility] nRBC Abs Auto 0.000 0.000 - [facility] 0.000 [facility] x10(3)/[facility] LABORATORY Specimen Anatomical Collection Method Collection Time Receive d Time (Source) Location / / Volume Laterality Blood 05/31/2022 10:50 05/31/2022 AM EDT 11:03 AM EDT Resulting Agency Comment Spec In Lab Brittany Ramirez MD HEMATOLOGY ORDERABLES Performing Organization Address City/[facility] [place] [address] Phosphorus (05/31/2022 10:50 AM EDT) P athologist Signature Phosphorus 3.2 2.5 - 4.5 [facility]dL [facility] Specimen Anatomical Collection Method Collection Time Receive d Time (Source) Location / / Volume Laterality Blood 05/31/2022 10:50 05/31/2022 AM EDT 11:03 AM EDT Resulting Agency Comment Spec In Lab Regina Hinds MD CHEMISTRY ORDERABLES Performing Organization Address City/[facility]/ZIP Code Phon e Number [address] Magnesium (05/31/2022 10:50 AM EDT) P athologist Signature Magnesium 0.93 0.69 - 1.07 [facility] mmol/L [facility] Specimen Anatomical Collection Method Collection Time Receive d Time (Source) Location / / Volume Laterality Blood 05/31/2022 10:50 05/31/2022 AM EDT 11:03 AM EDT Resulting Agency Comment Spec In Lab Regina Hinds MD CHEMISTRY ORDERABLES Performing Organization Address City/[facility] [place] [address] (ABNORMAL) pro-Brain Natriuretic Peptide (05/31/2022 10:50 AM EDT) P athologist Signature ProBNP 1,077 (H) <=449 [facility] XIAO pg/mL [facility] Specimen Anatomical Collection Method Collection Time Receive d Time (Source) Location / / Volume Laterality Blood 05/31/2022 10:50 05/31/2022 AM EDT 11:03 AM EDT Resulting Agency Comment Spec In Lab Regina Hinds MD CHEMISTRY ORDERABLES Performing Organization Address City/State/[place] [address] Troponin (05/31/2022 10:50 AM EDT) athologist Signature Troponin-T <0.01 0.00 - 0.00 [facility] ng/mL [facility] Comment: The 99th percentile for Troponin T is le ss than 0.01 ng/mL, any detectable cTnT concentration using this assay should be considered elevated. According to the third universal definit ion of myocardial infarction the following criteria with a clinical prese ntation consistent with acute myocardial ischemia meets the diagnosis for a myocardial infarction (MT). Detection of a rise and/or fall of [...] additional sample may be indicated. Reference: Third Struthers Definition of Myocardial Infarction. Journal of the [place] [employer] 2012;60:1581-98 Specimen Anatomical Collection Method Collection Time Receive d Time (Source) Location / / Volume Laterality Blood 05/31/2022 10:50 05/31/2022 AM EDT 11:03 AM EDT Resulting Agency Comment Spec In Lab Regina Hinds MD CHEMISTRY ORDERABLES Performing Organization Address City/State/[place] [address] (ABNORMAL) Basic Metabolic Panel (non-fasting) (05/31/2022 10:50 AM EDT) P athologist Signature Glucose Lvl 223 (H) 65 - 199 [facility] mg/dL [facility] Comment: Diabetes: >=200 mg/dL plus symp toms BUN 39 (H) 10 - 20 mg/dL [facility] Creatinine 0.91 0.80 - 1.50 mg/dL [facility] Sodium 140 135 - 145 mmol/L [facility] Potassium 4.1 3.5 - 5.0 mmol/L [facility] Comment: Please note: ??Patients with WBC >100,00 0 may have falsely elevated Potassium levels. ??For accurate Potassium quantif ication in these patients send serum separator tube (gold top) for subsequent determinations. ??Contact the Clinical Chemistry Laboratory if there are any qu estions. Chloride 107 98 - 107 mmol/L [facility] CO2 23 22 - 31 mmol/L [facility] Anion Gap 10 5 - 15 mmol/L [facility] Calcium 9.1 8.5 - 10.5 mg/dL [facility] Estimated GFR 86 >=60 mL/min/1.73 m?? [facility] Comment: This patient's estimated [...] Organization Address City/State/[place] [address] EKG 12 Lead (05/31/2022 10:11 AM EDT) Component Value Ref Range Test Analysis Performed Pathologis t Method Time At Signature Ventricular rate 106 BPM MUSE SYSTEM QRS Duration 122 ms MUSE SYSTEM Q-T Interval 368 ms MUSE SYSTEM QTC Calculated 488 ms MUSE SYSTEM (Bezet) Calculated R [place] -43 degrees MUSE SYSTEM Calculated T [place] 109 degrees MUSE SYSTEM INTERPRETATION Atrial fibrillation [...] erpretation Confirmed by fellow MD Mike, [place] ([id number]) on 022 8:36:21 PM Confirmed by MD [...] PROTOCOL, Starting on Fri05/31/22 at 2013, Until [place] 06/02/22 at 1702, Per Pro tocol, START [...] CONTINUOUS, Starting on Fri05/31/22 at 2015, Until [place] 06/02/22 at 1702, Begin infusion at 950 [...] Order parameters not met)1223 (Given - Provider: Maarnda Ribeiro RN) 12.5 mg, Oral, EVERY 6 [...] Group 2) 0-4,000 Units, Intravenous, [facility]OLUS [facility] PROT[facility], Starting on Fri05/31/22 at 2013, Until [...] - Less than 0.1 international unit/mL: Ad crime scene analyst 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 to med 0-4,000 Units, Intravenous, BOLUS PER [facility] PROTOCOL, Starting on Fri05/31/22 at 2014, Until [...]
Routine documented in this encounter Care Teams Certified Nurse Practitioner Relationship Specialty Start Date End Date Bobby Das MD PCP - General 10/02/[address] [place] [address] [place] [address] documented as of this encounter
--- OUTSIDE RECORDS SUMMARY | 2022-06-23 03:48 | XMS_ITS | Encounter Summary ---
:1940 Author Organization [place] [address] Care Team Providers Name Role Phone Bobby Das MD Primary Care Provider Reason for Referral Consultation (Routine) - Authorized Specialty Diagnoses / Procedures Referred By Contact Refer red To Contact Diagnoses HFrEF (heart failure with reduced ejection fraction) Coronary artery disease involving [place] coronary artery of [place] heart without angina pectoris Alan Reid MD [facility] [place] [address] Referral ID Status Reason Start Date Expiration Visits Visits Date Requested Authorized [id number] Authorized Consult, 06/20/2022 12/17/2022 36 36 Test & Treat Encounter Details Date Type Department Care Team Description 06/20/2022 Orders Only [facility]iology at [facility] [place] Reid HFrEF (heart failure with re duced ejection fraction); [facility] MD Kurt Coronary artery disease involving [place] coronary artery of [place] heart without angina [place] [address] CARDIOLOGY [phone], [place] [address] (Wo rk) Social History Tobacco [...] 07/02/2022 Office Visit Vascular Surgery Jing Ghosh, BAND SPLITTER [facility] ER VASCULAR SURGERY [address], [place] [address] (Wo rk) 09/02/2022 Clinical Support Dermatology Thai Lynn MD [facility] DR JENNY BILLY-DERMAT [place], [place] [address] (Wo rk) 09/02/2022 Procedure visit Dermatology Jace Lynn MD [facility] DR JENNY BILLY[address]DERMAT [place], [place] [address] (Wo rk) 09/05/2022 Appointment Cardiology Trinity Reid MD [facility] CARDIOLOGY [address], [place] [address] (Wo rk) 09/05/2022 Office Visit Cardiology Trinity Reid MD [facility] CARDIOLOGY [address], [place] [address] (Wo rk) Scheduled Referrals Name Type Priority Associated Diagnoses Order S chedule Referral to Outpatient Referral Routine HFrEF (heart failure Ordered: Cardiac Rehab with reduced 06/20/2022 ejection fractio n) Coronary artery disease involving [place] coronary artery of [place] heart without angina pectoris documented as of this encounter Visit Diagnoses Diagnosis HFrEF (heart failure with reduced ejecti on fraction) Coronary artery disease involving [place] coronary artery of [place] heart without angina pectoris documented in this encounter Care Teams Distillery Worker General Relationship Specialty Start Date End Date Bobby Das MD PCP - General 10/02/[address] [place] [address] [place] [phone] documented as of this encounter
--- OUTSIDE RECORDS SUMMARY | 2022-06-23 03:48 | XMS_ITS | Encounter Summary ---
:1940 Author Organization [facility] [place] [address] Care Team Providers Name Role Phone Bobby Das MD Primary Care Provider Reason for Referral Diagnostic Test (Routine) - Authorized Specialty Diagnoses / Procedures Referred By Contact Refer red To Contact Cardiology Diagnoses HFrEF (heart failure with reduced ejection fraction) Alan Reid MD [facility] Non-Inv Card Lab Procedures [place]chocardi[place] [address] [place] [address] Fax: Referral ID Status Reason Start Expiration Visits Visits Date Date Requested Authorized [id number] Authorized Specialty 06/13/2022 06/13/2023 1 1 Service Requested Reason for Visit Consultation (Routine) - Closed Specialty Diagnoses / Procedures Referred By Contact Refer red To Contact Cardiology Diagnoses HFrEF (heart failure with reduced ejection fraction) Paroxysmal atrial fibrillation Post-hospital follow-up, s/p PCI with stenting, heart failure Nasrin Parra PA [facility] Cardiology 4a [facility] [place] [address] [place] [address] Referral ID Status Reason Start Date Expiration Date Visits V isits Requested Authorized [id number] Closed Consult, 05/21/2022 05/21/2023 1 1 Test & Treat Encounter Details Date Type Department Care Team Description 06/13/2022 Office Visit Cardiology at [facility] Alan Reid Coronary artery disease invo lving [place] coronary artery of [place] heart without angina pectoris; [facility] MD Kurt HFrEF (heart failure with reduced ejecti on fraction); Drive [facility] Permanent [place] [address] CARDIOLOGY [phone] [place], [place] [address] Social History Tobacco Use Types [...] the original note were not included. [facility] [place] [address] CARDIOLOGY OUTPATIENT PROGRESS NOTE PRIMARY CARE PROVIDER: Bobby Das MD REFERRING PROVIDER: Nasrin Parra PROBLEM LIST: Patient Active Problem List Diagnosis ??? Coronary artery disease involving [place] coronary artery of [place] heart without angina pectoris 05/20/22 Cath * [...] valve prolapse) s/p repair Surgery done at [facility] in 2000 ??? Hypertriglyceridemia ??? Adhesive capsulitis [...] 3 ??? fluticasone propionate (FLONASE) 50 mcg/actuation [place], Suspension 1 spray by Each Nare route [...] healing well. Markedly diminished left radial pulse. 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 Psych: Appropriate affect. Labs: Lab [...] device therapy possiblyincluding AV node ablation and ORTHOTICS TECHNICIAN-D. Coronary artery disease involving [place] coronary artery of [place] heart without angina pectoris His coronary disease [...] for consideration of AV node ablation and ORTHOTICS TECHNICIAN-D Patient Instructions ??? Your new medication is [...] for consideration of AV node ablation and ORTHOTICS TECHNICIAN-D Assessment & Plan Note - Alan Reid MD - 06/13/2022 10:22 AM EDT Associated Problem(s): Coronary artery disease involving [place] coronary artery of [place] heart without angina pectoris His coronary disease [...] device therapy possiblyincluding AV node ablation and ORTHOTICS TECHNICIAN-D. documented in this encounter Plan of Treatment Upcoming Encounters Date Type Specialty Care Team Description 07/02/2022 Office Visit Vascular Surgery Jing Ghosh, HIRAL [facility] DR VASCULAR SURGERY [place], [place] [address] (Wo rk) 09/02/2022 Clinical Support Dermatology Thai Lynn MD [facility] DR JENNY BILLY-DERMAT [place], [place] [address] (Wo rk) 09/02/2022 Procedure visit Dermatology Jace Lynn MD [facility] DR JENNY BILLY-DERMAT [place], [place] [address] (Wo rk) 09/05/2022 Appointment Cardiology Trinity Reid MD [facility] CARDIOLOGY [place], [place] [address] (Wo rk) 09/05/2022 Office Visit Cardiology Trinity Reid MD [facility] CARDIOLOGY [place], [place] [address] (Wo rk) Scheduled Orders Name Type Priority Associated Order Schedule Diagnoses Echocardiogram Echocardiography Routine HFrEF (heart Expected: Transthoracic failure with 08/13/2022, reduced ejection Expires: fraction) 02/12/2023 documented as of this encounter Visit Diagnoses Diagnosis Coronary artery disease involving [place] coronary artery of [place] heart without angina pectoris HFrEF (heart failure with reduced ejecti on fraction) Permanent atrial fibrillation Atrial fibrillation documented in this encounter Care Teams Autobody Technician Relationship Specialty Start Date End Date Bobby Das MD PCP - General 10/02/[address] [place] [address] [place] [phone] documented as of this encounter
--- OUTSIDE RECORDS SUMMARY | 2022-06-23 03:48 | XMS_ITS | Encounter Summary ---
:1940 [place] [address] Care Team Providers Name Role Phone Bobby Das MD Primary Care Provider Reason for Referral Consultation (Routine) - Authorized Specialty Diagnoses / Procedures Referred By Contact Refer red To Contact Dermatology Diagnoses Basal cell carcinoma (BCC) of right forehead Loretta Cohen MD Leboeuf, Matthew R, MD [facility] [address] [place] [address] [place] [address] Fax: Referral ID Status Reason Start Date Expiration Visits Visits Date Requested Authorized [id number] Authorized Consult, 06/17/2022 06/17/2023 1 1 Test & Treat Encounter Details Date Type Department Care Team Description 06/17/2022 Orders Only Dermatology at [facility] Basal cell carcinoma Nicol CARCAMO (BCC) of right [address] [place] [phone] DERMATOLOGY [place], [place] [address] Social History Tobacco Use Types [...] Visit Vascular Surgery Jing Ghosh APRN [facility] ER VASCULAR SURGERY [place], [place] [address] (Wo rk) 09/02/2022 Clinical Support Dermatology Thai Lynn MD [facility] DR JENNY BILLY-DERMAT [place], [place] [address] (Wo rk) 09/02/2022 Procedure visit Dermatology Jace Lynn MD [facility] DR JENNY BILLY-DERMAT [place], [place] [address] (Wo rk) 09/05/2022 Appointment Cardiology Trinity Reid MD [facility] CARDIOLOGY [place], [place] [address] (Wo rk) 09/05/2022 Office Visit Cardiology Trinity Reid MD [facility] CARDIOLOGY [place], [place] [address] (Wo rk) Scheduled Referrals Name Type Priority Associated Order Schedule Diagnoses Referral to Outpatient Referral Routine Basal cell Ordered: Dermatology carcinoma (BCC) of 2 right forehead documented as of this encounter Visit Diagnoses Diagnosis Basal cell carcinoma (BCC) of right fore head documented in this encounter Care Teams Wagon Person Relationship Specialty Start Date End Date Bobby Das MD PCP - General 10/02/[address] [place] [address] [place] [phone] documented as of this encounter
--- OUTSIDE RECORDS SUMMARY | 2022-06-23 03:48 | XMS_ITS | Encounter Summary ---
:1940 [place] [address] Care Team Providers Name Role Phone Bobby Das MD Primary Care Provider Encounter Details Date Type Department Care Team Description 06/13/2022 Office Visit V[place] [facility] Fito Summers MD Limb ischemia [place] [address] VASCULAR SURGERY [phone] [place] [id number] (Wo rk) Social History Tobacco Use Types [...] s/p repair Overview Note: Surgery done at [facility] in 2000 ??? Hypertriglyceridemia Overview Note: ??? [...] with ABIs. Fito Summers MD Vascular Surgery [facility] Emily Power CMA - 06/13/2022 8:00 AM EDT Handwashing performed, gloves on.As instructed by windy removed on LLE medial and lateral aspect, cleansed after staple remover, steri strips applied. Gloves off, handwashing performed. documented in this encounter Plan of Treatment Upcoming Encounters Date Type Specialty Care Team Description 07/02/2022 Office Visit Vascular Surgery Jing Ghosh APRN [facility] VASCULAR SURGERY [place], [place] [address] (Wo rk) 09/02/2022 Clinical Support Dermatology Thai Lynn MD [facility] DR JENNY BILLY-DERMAT [place], [place] [address] (Wo rk) 09/02/2022 Procedure visit Dermatology Jace Lynn MD [facility] DR JENNY BILLY-DERMAT [place], [place] [address] (Wo rk) 09/05/2022 Appointment Cardiology Trinity Reid MD [facility] DR [address] [place], [place] [address] (Wo rk) 09/05/2022 Office Visit Cardiology Trinity Reid MD [facility] CARDIOLOGY [place], [place] [address] (Wo rk) documented as of this encounter Visit Diagnoses Diagnosis Limb ischemia Unspecified circulatory system disorder documented in this encounter Care Teams Pipe Stem Aligner Relationship Specialty Start Date End Date Bobby Das MD PCP - General 10/02/[address] [place] [address] [place] [phone] documented as of this encounter
--- OUTSIDE RECORDS SUMMARY | 2022-06-23 03:48 | XMS_ITS | Encounter Summary ---
:1940 Author Organization [facility] [place] [address] Care Team Providers Name Role Phone Bobby Das MD Primary Care Provider Reason for Visit Reason Comments Skin Lesion Consultation (Routine) - Closed Specialty Diagnoses / Procedures Referred By Contact Refer red To Contact Dermatology Diagnoses Lesion on right eye = hx of skin cancer Bobby Das MD [facility] Dermatology Procedures Lesion on right eye = hx of skin cancer [address] [facility] [address] [place] [address] [place] [address] Fax: Referral ID Status Reason Start Date Expiration Date Visits Requ ested Visits Authorized [id number] Closed 04/22/2022 04/22/2023 1 1 Encounter Details Date Type Department Care Team Description 06/10/2022 Office Visit Dermatology at [facility], Neoplasm of Road unspecified behavior [address] [facility] [place] [address] [address] and skin [phone] DERMATOLOGY [place] [address] Social History Tobacco Use Types Packs/Day Years [...] nevi N SCC N BCC 2015: right adventism, BCC s/p mohs 09/2018: right eyebrow, BCC [...] N/A RTC: Pending pathology []Note routed to medical secretary receptionist []Recall placed in scheduling system []Appointment scheduled at checkout Scribe attestation: Sidney Higgins and Loretta Gomez CMA performed the documentation for this encounter in the presence of and acting as a scribe for Noel Burgos MD. I performed the above scribed service and agree with the accuracy of the documentation in this encounter. Reviewed and signed by: Noel Burgos MD Dermatology [facility] Loretta Cohen MD - 06/10/2022 11:00 AM EDT DERMATOLOGY TELEPHONE NOTE Koko Zamora 06/17/2022 [id number] Reason for call: Discuss biopsy results I [...] Office Visit Vascular Surgery Jing Ghosh, WEB MARKETING INTERN [facility] VASCULAR SURGERY [place], [place] [address] (Rebekah rojas) 09/02/2022 Clinical Support Dermatology Thai Lynn MD [facility] DR JENNY BROWN-DERMAT [place], [place] [address] (Rebekah rojas) 09/02/2022 Procedure visit Dermatology Jace Lynn MD [facility] ER DR JENNY BROWN-DERMAT [place]LOG[place], [place] [address] (Wo rk) 09/05/2022 Appointment Cardiology Trinity Reid MD [facility] ER CARDIOLOGY [place], [place] [address] (Wo rk) 09/05/2022 Office Visit Cardiology Trinity Reid MD [facility] ER CARDIOLOGY [place], [place] [address] (Wo rk) documented as of this encounter [...] PM 2 1:20 EDT PM EDT Narrative [facility] - 06/10/2022 1:20 PM EDT Specimen requisition ordered. ??Separate Pathology report to follow Loretta Cohen MD PATHOLOGY/CYTOLOGY ORDERABLE S Performing Organization Address City/State/[place] [address] Surgical Pathology Report (06/10/2022 11:43 AM EDT) Component Value Ref Test Analysis Performed At Patholo gist Range Method Time Signature Surgical [id number] ? Location: [facility] Report The signing pathologist has (i) [...] Daltonregi Verified: ??06/12/2022 14:33 ??Dermatopathologist Performed at: ??-[facility] Dept. of Pathology, [place], [place] SPECIMEN(S) SUBMITTED A - right lateral [...] City/State/[place] [address] [facility] documented in this encounter Visit Diagnoses Diagnosis Neoplasm of unspecified behavior of bone , soft tissue, and skin documented in this encounter Care Teams Print Washer Relationship Specialty Start Date End Date Bobby Das MD PCP - General 10/02/[address] [place] [address] [place] [address] documented as of this encounter
--- OUTSIDE RECORDS SUMMARY | 2022-06-23 03:48 | XMS_ITS | Encounter Summary ---
:1940 Author Organization [facility] [place] [address] Care Team Providers Name Role Phone Bobby Das MD Primary Care Provider Encounter Details Date Type Department Care Team Description 06/19/2022 Telephone [place] [facility] Kourtney Jimenez, RN [facility] [place] [address] Social History Tobacco Use Types Packs/Day Years Used Date Former Smoker Cigarettes 0.5 50 Smokeless Tobacco: Never Used Alcohol Use Standard Drinks/Week Comments Yes 44 (1 standard drink = 0.6 oz pure alcoh ol) Sex Assigned at Date Recorded Not on file documented as of this encounter Miscellaneous Notes Telephone Encounter - Kourtney Jimenez, RN - 06/19/2022 11:19 AM EDT Voice message from Mr Zamora: Requesting a referral to Cardiac Rehab [facility] Forward to Dr Reid documented in this encounter Plan of Treatment Upcoming Encounters Date Type Specialty Care Team Description 07/02/2022 Office Visit Vascular Surgery Jing Ghosh APRN [facility] VASCULAR SURGERY [place], [place] [address] (Wo rk) 09/02/2022 Clinical Support Dermatology Thai Lynn MD [facility] ER DR JENNY BILLY-DERMAT [place]LOGY [place], [place] [address] (Wo rk) 09/02/2022 Procedure visit Dermatology Jace Lynn MD [facility] DR JENNY BILLY-DERMAT [place], [place] [address] (Wo rk) 09/05/2022 Appointment Cardiology Trinity Reid MD [facility] CARDIOLOGY [place], [place] [address] (Wo rk) 09/05/2022 Office Visit Cardiology Trinity Reid MD [facility] CARDIOLOGY [place], [place] [address] (Wo rk) documented as of this encounter Visit Diagnoses Not on filedocumented in this encounter Care Teams Boat Builder Relationship Specialty Start Date End Date Bobby Das MD PCP - General 10/02/[address] [place] [address] [place] [phone] documented as of this encounter
--- OUTSIDE RECORDS SUMMARY | 2022-06-23 03:48 | XMS_ITS | Encounter Summary ---
:1940 [address] [facility] [place] [address] Care Team Providers Name Role Phone Bobby Das MD Primary Care Provider Encounter Details Date Type Department Care Team Description 06/23/2022 Telephone Gastroenterology at [facility] Alan August MD [facility] [place] [phone] GASTROENTEROLOGY DEPT [phone] [place], [place] [address] (Wo rk) Social History Tobacco Use Types Packs/Day Years Used Date Former Smoker Cigarettes 0.5 50 Smokeless Tobacco: Never Used Alcohol Use Standard Drinks/Week Comments Yes 44 (1 standard drink = 0.6 oz pure alcoh ol) Sex Assigned at Date Recorded Not on file documented as of this encounter Miscellaneous Notes Telephone Encounter - Alan August MD - 06/23/2022 2:26 AM EDT Images from the original note were not included. DIV[facility] OF GASTROENTEROLOGY [facility] CALL Name: Koko Zamora Date: 06/23/2022 Time: 2:27 AM Referring Location: [facility] Referring Provider: Shahram Urena DC HPI: This is a 81 y.o. M w/Hx of: - MVR - CAD s/b NSTEMI 5 weeks ago - Prediabetes - HTN - AUD - TUD Who presented to OSH on 06/23/22 with GIB. He recently had an nSTEMI and was placed on Xarelto and ASA. After an episode of GIB, this was changed to plavix. 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 Doing well until today when he had a large bloody bowel movement at 10 pm. Vitals: - AF, HDS, WNL Labs showed: - CBC: HgB 6.9 - BMP: BUN 20, creatinine 0.7 Surgeon refused admission. I did recommend that wherever he can be admitted, they repeat an EGD and continue PPI in the interim. The provider was attempting to have the patient admitted here under our care, but I advised him that we do not have that ability to circumvent the medicine team. He did inquire if we do here and back procedures to which I responded in the affirmative. It is unclear to me however if they are planning on attempting to have him come for a here and back procedure. This is not an official consult, as my recommendations are limited by my inability to interview and examine the patient as well as personally review the medical record, imaging, and laboratory findings. Alan August MD PGY-5, Gastroenterology documented in this encounter Plan of Treatment Upcoming Encounters Date Type Specialty Care Team Description 07/02/2022 Office Visit Vascular Surgery Jing Ghosh, BULB PACKER [facility] VASCULAR SURGERY [place] [phone] ( rk) 09/02/2022 Clinical Support Dermatology Thai Lynn MD [facility] DR JENNY BILLY-DERMAT [place], [place] [address] (Wo rk) 09/02/2022 Procedure visit Dermatology Jace Lynn MD [facility] DR JENNY BILLY-DERMAT [place], [place] [address] ( rk) 09/05/2022 Appointment Cardiology Trinity Reid MD [facility] CARDIOLOGY [place], [place] [address] (Wo rk) 09/05/2022 Office Visit Cardiology Trinity Reid MD [facility] MEDICAL [facility] CARDIOLOGY [place], [place] [address] (Wo rk) documented as of this encounter Visit Diagnoses Not on filedocumented in this encounter Care Teams Clinical Resource Coordinator Relationship Specialty Start Date End Date Bobby Das MD PCP - General 10/02/[address] [place] [address] [place] [phone] documented as of this encounter
--- OUTSIDE RECORDS SUMMARY | 2022-06-23 03:48 | XMS_ITS | Clinical Summary ---
:1940 Author Organization [facility] [place] [address] Care Team Providers Name Role Phone Abby [...] 04/12/2021 Active (FLONASE) 50 mcg/actuation Each Nare [place], Suspension route daily as needed. 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 Permanent atrial fibrillation 06/13/2022 Last Assessment & [...] consideration of AV no de ablation and BUSINESS MACHINE OPERATOR-D Limb ischemia 05/15/2022 History of basal cell carcinoma 05/31/2014 Basal cell carcinoma 03/29/2014 Verruca vulgaris 03/29/2014 AK (actinic keratosis) 03/29/2014 GIB (gastrointestinal bleeding) 06/28/2011 Overview: Secondary to 3-4 ASA/day, required admis lynette and blood transfusion MVP (mitral valve prolapse) s/p repair 06/28/2011 Overview: Surgery done at [facility] in 2 001 Hypertriglyceridemia 06/28/2011 Adhesive capsulitis of L shoulder 06/28/2011 Alcohol use 06/28/2011 Encounters Date Type Specialty Care Team Description 06/23/2022 Telephone Gastroenterology Alan August MD 06/20/2022 Orders Only Cardiology Jeanette, HFrEF (heart fa ilure with reduced ejection fraction); Alan Hicks MD Coronary priscilla ry disease involving deering coronary artery of deering heart without angina pectoris 06/19/2022 Telephone Cardiology Kourtney Jimenez, RN 06/17/2022 Orders Only Dermatology Loretta Cohen Basal cell c carlos Paez MD (BCC) of right forehead 06/13/2022 Office Visit Cardiology Jeanetet, Coronary artery disease involving deering coronary artery of deering heart without angina pectoris; Alan Hicks MD HFrEF (heart failure with reduced ejection fraction); Permanent atria l fibrillation 06/13/2022 Office Visit Vascular Surgery Fito Summers Limb isch alma Tan MD 06/13/2022 Tech Visit Vascular Surgery Presch, Edson Limb isc hemia L, [place] 06/10/2022 Office Visit Dermatology Loretta Cohen Neoplasm syeda Paez MD unspecified beh avior of bone, soft t issue, and skin 05/31/2022 Anesthesia Event Gastroenterology Elmer Johnson MD Drost, Alexander J, OPERATING ROOM MANAGER 05/31/2022 Surgery Gastroenterology Giovani Ponce, RACHAEL Gomez MD ENDOSCOPY 05/31/2022 - Hospital Encounter Dominique Hinds GIB (g astrointestinal 06/02/2022 MD bleeding) (Primary Dx) Mahendra Victor MD Friedman, Harley P, MD Ratanamaneechat, Suphagaphan, MD 05/31/2022 Office Visit Vascular Surgery Davina, Ch Dizzy; B, CAR COOPER Atrial fibrilla tion, unspecified type; SOB (shortness of breath) 05/28/2022 Telephone Vascular Surgery Dominique Bolivar, RN 05/24/2022 Telephone Cardiology Kourtney Jimenez, RN 05/21/2022 Hospital Encounter Cardiology Paroxysma l atrial fibrillation 05/20/2022 Surgery Cardiology Abundio Servin CARDIAC MD Dixon CATHETERIZATION 05/15/2022 Anesthesia Event Surgery Cari Hernandez MD Patel, Shreena K, OPERATING ROOM MANAGER 05/15/2022 Surgery Surgery Fito Summers EMBOLECTOMY [place] [...] Vascular Surgery Jing Ghosh, HIRAL [facility] VASCULAR SURGERY [place] [id number] (Wo rk) 09/02/2022 Clinical Support Dermatology Thai Lynn MD [facility] DR JENNY BILLY-DERMAT [place], [place] [address] (Wo rk) 09/02/2022 Procedure visit Dermatology Jace yLnn MD [facility] DR JENNY BILLY-DERMAT [place], [place] [address] (Wo rk) 09/05/2022 Appointment Cardiology Trinity Reid MD [facility] CARDIOLOGY [place], [place] [address] (Wo rk) 09/05/2022 Office Visit Cardiology Trinity Reid MD [facility] CARDIOLOGY [place], [place] [address] (Wo rk) Health Maintenance Due [...] Component Value Ref Test Analysis Performed At [facility] Seed[employer] Range Method Time Signature VB Text Department: Vascular Surgery Lab VASCUBASE Report Patient: [id number] (KOKO BAH) CPT: 43830 Referring Physician: FITO SUMMERS ?? 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 Diabetes mellitus: no Findings: Right [...] 1:20 PM 1:20 EDT PM EDT Narrative [facility] LABORAT ORY - 06/10/2022 1:20 PM EDT Specimen requisition ordered. ??Separate Pathology report to follow Loretta Cohen MD PATHOLOGY/CYTOLOGY ORDERABLE S Performing Organization Address City/State/ZIP [place] [address] Surgical Pathology Report (06/10/2022 11:43 AM EDT) Component Value Ref Test Analysis Performed At [facility] gist Range Method Time Signature Surgical [id number] ? Location: [facility] Report The signing pathologist has (i) examined the relevant preparation(s) for the [facility] specimen(s) and (ii) rendered or confirmed the diagnosis(es) . HOSPITAL LABORATORY . ?Surgic al Pathology DIAGNOSIS Right lateral eyebrow, skin shave biopsy: - ??Basal cell carcinoma, no dular pattern, transected at the peripheral and deep specimen edges Electronically signed by: ?Delroy CARCAMO, PhD, [facility] Verified: ??06/12/2022 14:33 ??Dermatopathologist Performed at: ??-[facility] Dept. of Pathology, [place], [place] SPECIMEN(S) SUBMITTED A - right lateral [...] MD PATHOLOGY/CYTOLOGY ORDERABLE S Performing Organization Address [facility]/ZIP [place] [address] [facility] LAB[address]ORY Drive (ABNORMAL) Hemogram (06/02/2022 8:20 AM EDT)Only the most recent of14 results within the time period is included. Analysis Performed At Patho logist Time Signature WBC 7.2 4.0 - 9.5 [facility] x10(3)/[facility] LABORATORY RBC 2.74 (L) 4.58 - [facility] 5.54 [facility] x10(6)/[facility] LABORATORY Hemoglobin 8.7 (L) 13.7 - [facility] 16.5 g/dL [facility] LABORATORY Hematocrit 25.7 (L) 40.5 - [facility] 48.5 % [facility] LABORATORY MCV 93.8 (H) 82.9 - [facility] 93.1 [facility] LABORATORY MCH 31.8 27.5 - [facility] 32.1 pg [facility] MCHC 33.9 32.0 - [facility] 35.7 g/dL [facility] LAB[facility]ORY Platelets 260 145 - 357 [facility] x10(3)/[facility] LABORATORY RDWSD 51.0 (H) 36.0 - [facility] 45.0 [facility] LABORATORY RDWCV 14.9 (H) 11.4 - [facility] 13.8 % [facility] LABORATORY MPV 10.0 7.6 - 12.9 [facility] LABORATORY nRBC % Auto 0.0 % [facility] LABORATORY nRBC Abs Auto 0.000 0.000 - [facility] 0.000 [facility] x10(3)/[facility] LABORATORY Specimen Anatomical Collection Method Collection Time Receive d Time (Source) Location / / Volume Laterality Blood 06/02/2022 8:20 AM 8:25 EDT AM EDT Resulting Agency Comment Spec In Lab Kurt Ames MD HEMATOLOGY ORDERABLES Performing Organization Address City/State/[place] [address] (ABNORMAL) Differential, Automated (06/02/2022 8:20 AM EDT)Only the most recent of14 resultswithin the time period is included. P athologist Signature Neutrophils % 61.3 % [facility] LABORATORY Neutr Abs (ANC) 4.44 1.70 - [facility] 6.10 [facility] x10(3)/[facility] LABORATORY Lymphocytes % 25.2 % [facility] LABORATORY Lymphocytes Abs 1.8 0.9 - 3.2 [facility] x10(3)/[facility] LABORATORY Monocytes % 10.0 % [facility] LABORATORY Monocyte Abs 0.7 0.3 - 0.9 [facility] x10(3)/[facility] LABORATORY Eosinophils % 2.1 % [facility] LABORATORY Eosinophils Abs 0.2 0.0 - 0.4 [facility] x10(3)/[facility] LABORATORY Basophils % 0.7 % [facility] LABORATORY Basophils Abs 0.0 0.0 - 0.1 [facility] x10(3)/[facility] LABORATORY Immature Gran % 0.70 % [facility] LABORATORY Comment: Immature granulocytes(IG's)percentage an d absolute count will include metamyelocytes, myelocytes, and promyelo cytes. Blood smears from CBCs yielding IG's will be scanned manually for concor dance. If this scan disagrees with the automated IG or if promyelocytes are not ed, a manual differential will be performed. Rain Gran Abs 0.05 (H) 0.00 - 0.04 x10(3)/[facility] LABORATORY Specimen Anatomical Collection Method Collection Time Receive d Time (Source) Location / / Volume Laterality Blood 06/02/2022 8:20 AM 8:25 EDT AM EDT Resulting Agency Comment Spec In Lab Kurt Ames MD HEMATOLOGY ORDERABLES Performing Organization Address City/State/[place] [address] Heparin (unfractionated) Level (06/02/2022 6:30 AM EDT)Only the most recent of11 resultswithin the time period is included. P athologist Signature Heparin UFH 0.39 IU/mL [facility] LABORATORY Comment: Heparin (anti-Xa) levels should be [...] Victor MD HEMATOLOGY ORDERABLES Performing Organization Address City/[facility]/ZIP [facility] Phon e Number [address] Magnesium (06/02/2022 12:30 AM EDT)Only the most recent of5 resultswithin the time period is included. athologist Signature Magnesium 0.83 0.69 - 1.07 [facility] mmol/L [facility] LABORATORY Specimen Anatomical Collection Method Collection Time Receive d Time (Source) Location / / Volume Laterality Blood 06/02/2022 12:30 06/02/2022 AM EDT 12:40 AM EDT Resulting Agency Comment Spec In Lab Mahendra Victor MD CHEMISTRY ORDERABLES Performing Organization Address City/[facility] [place] [address] (ABNORMAL) Basic Metabolic Panel (non-fasting) (06/02/2022 12:30 AM EDT)Only the most recent of6 resultswithin the time period is included. athologist Signature Glucose Lvl 151 65 - 199 [facility] mg/dL [facility] LABORATORY Comment: Diabetes: >=200 mg/dL plus symp toms BUN 12 10 - 20 mg/dL [facility] LABORATORY Creatinine 0.71 (L) 0.80 - 1.50 mg/dL [facility] LABORATORY Sodium 142 135 - 145 mmol/L [facility] LABORATORY Potassium 3.8 3.5 - 5.0 mmol/L [facility] LABORATORY Comment: Please note: ??Patients with WBC >100,00 0 may have falsely elevated Potassium levels. ??For accurate Potassium quantif ication in these patients send serum separator tube (gold top) for subsequent determinations. ??Contact the Clinical Chemistry Laboratory if there are any qu estions. Chloride 108 (H) 98 - 107 mmol/L [facility] LABORATORY CO2 24 22 - 31 mmol/L [facility] LABORATORY Anion Gap 10 5 - 15 mmol/L [facility] LABORATORY Calcium 8.1 (L) 8.5 - 10.5 mg/dL [facility] LABORATORY Estimated GFR 93 >=60 mL/min/1.73 m?? [facility] LABORATORY Comment: This patient's estimated [...] Organization Address City/State/[place] [address] SCAN DOC: TELEMETRY STRIPS (06/01/2022 8:37 PM EDT)Only the most recent of8 resultswithin the time period is included. Narrative This result has an attachment that is no t available. Unknown MEDIA MGR SCAN EXT ORDR/RSLT (ABNORMAL) Urinalysis with reflex Culture (06/01/2022 4:00 AM EDT)Only the most recent of2 resultswithin the time period is included. [facility] Method Time Signature Glucose UA 500 Negative [facility] (Critical) mg/dL [facility] LABORATORY Comment: Urinalysis result NOT critical without a combination of Glucose greater than or equal to 500 mg/dL AND Ketones greate r than or equal to 80 mg/dL Protein UA Negative Negative mg/dL [facility] LABORATORY Bilirubin UA Negative Negative mg/dL [facility] LABORATORY Comment: Clinical correlation required for positi ve Urine Bilirubin results as false positive may occur with some drugs and d rug related products. If a false positive is suspected a serum total bili quarles should be considered if clinically indicated. Urobilinogen UA Normal Normal mg/dL [facility] LABORATORY pH UA 6.0 5.0 - 8.0 [facility] LABORATORY Blood UA Negative Negative mg/dL [facility] LABORATORY Ketones UA Negative Negative mg/dL [facility] LABORATORY Nitrite UA Negative Negative [facility] LABORATORY Leukocytes UA Negative Negative [facility] LABORATORY Appearance UA Clear Clear [facility] LABORATORY Spec [place] UA >=1.030 (A) 1.005 - 1.030 [facility] LABORATORY Color UA Yellow Yellow [facility] LABORATORY Culture Reflexed No [facility] LABORATORY Specimen Anatomical Collection Method Collection Time Receive d Time (Source) Location / / Volume Laterality Clean Catch 06/01/2022 4:00 AM 4:26 Urine EDT AM EDT Resulting Agency Comment Spec In Lab Mahendra Victor MD URINE ORDERABLES Performing Organization Address City/State/[place] [address] Transfuse RBC (05/31/2022 7:36 PM EDT) Dominique Hinds MD NURSING TREATMENT ORDERABLES - BLOOD ADMIN UPPER GI ENDOSCOPY (05/31/2022 3:37 PM EDT) Component Value Ref Test Analysis Performed At [facility] Range Method Time Signature UPPER GI [facility] PROVATION ENDOSCOPY Endoscopy Procedure Date: 05/31/2022 3:37 PM ? Patient Name: Koko Bah ? Date of : 1940 ? Age: 81 ? Order #: [id number] ? Instrument Name: [id number] ? Procedure: ? Upper GI endoscopy Indications: ? Melena, Suspected upper ? gastrointestinal bleeding Providers: ? Giovani Ponce, Torrey Gannon , ? Vani Wei, RN, Juhi Maxwell, ? Alannah Hutchinson, Torres Christensen [...] Procedure Code(s): ? --- Professional --- ? 30626, Esophagogastroduode noscopy, ? flexible, transoral; with control [...] stomach ? and duodenum CPT copyright 2020 [employer] [place] [employer]. All rights reserved. The codes documented in this report are preliminary and upon loan auditor review may be revised to meet current [...] who have questions please contact the health manager care that requested your imaging first. ? Electronically signed by: Jl walter MD, [facility] ([phone]), at 05/31/2022 2:39 PM Narrative 05/31/2022 2:39 [...] contrast was not administered. COMPARISON: 05/15/2022 from [facility] FINDINGS: GI Tract: Pre-contrast: No [...] enlarged lymph nodes. Vasculature: Patent common iliac, nuclear process engineer al iliac, and common femoral arteries bilaterally. [...] contrast was not administered. COMPARISON: 05/15/2022 from [facility] FINDINGS: GI Tract: Pre-contrast: No [...] enlarged lymph nodes. Vasculature: Patent common iliac, nuclear process engineer al iliac, and common femoral arteries bilaterally. [...] ho have questions please contact the health manager care that requested your imaging first. Electronically signed by: Jl walter MD, [facility] ([phone]), at 05/31/2022 2:39 PM Dominique Hinds MD IMG CT ORDERABLES Type and Screen Validity (05/31/2022 1:43 PM EDT)Only the most recent of2 resultswithin the time period is included. [facility] Method Time Signature T&S only valid [facility] LABORATORY Comment: This Type and Screen result is only valid at the [facility] Hospital Specimen Anatomical Collection Method Collection Time Receive d Time (Source) Location / / Volume Laterality Blood 05/31/2022 1:43 PM 2 1:57 EDT PM EDT Resulting Agency Comment Spec In Lab Dominique Hinds MD BLOOD BANK ORDERABLES Performing Organization Address City/[facility]/ZIP [place] [address] ABORH Recheck Status (05/31/2022 1:43 PM EDT)Only the most recent of2 results within the time period is included. [facility] Method Time Signature ABORH Type Completed [facility] LABORATORY Specimen Anatomical Collection Method Collection Time Receive d Time (Source) Location / / Volume Laterality Blood 05/31/2022 1:43 PM 2 1:57 EDT PM EDT Resulting Agency Comment Spec In Lab Dominique Hinds MD BLOOD BANK ORDERABLES Performing Organization Address City/[facility]/ZIP [place] [address] ABO/Rh Typing (05/31/2022 1:43 PM EDT)Only the most recent of2 resultswithin the time period is included. P athologist Signature ABORh Type O Pos [facility] LABORATORY Specimen Anatomical Collection Method Collection Time Receive d Time (Source) Location / / Volume Laterality Blood 05/31/2022 1:43 PM 2 1:57 EDT PM EDT Resulting Agency Comment Spec In Lab Dominique Hinds MD BLOOD BANK ORDERABLES Performing Organization Address City/[facility]/ZIP [place] [address] Antibody screen (05/31/2022 1:43 PM EDT)Only the most recent of2 resultswithin the time period is included. Patholo gist Method Time Signature Ab Screen Negative [facility] LABORATORY Expires at 06/03/2022 [facility] 2359 on: [facility] LABORATORY Specimen Anatomical Collection Method Collection Time Receive d Time (Source) Location / / Volume Laterality Blood 05/31/2022 1:43 PM 2 1:57 EDT PM EDT Resulting Agency Comment Spec In Lab Dominique Hinds MD BLOOD BANK ORDERABLES Performing Organization Address City/[facility]/ZIP Code Phon e Number [address] Prepare RBC (05/31/2022 1:35 PM EDT)Only the most recent of2 resultswithin the time period is included. P athologist Signature Dispensed? Yes [facility] LABORATORY Specimen Anatomical Collection Method Collection Time Receive d Time (Source) Location / / Volume Laterality Blood 05/31/2022 1:35 PM 2 1:30 EDT PM EDT Dominique Hinds MD BLOOD BANK ORDERABLES Performing Organization Address City/[facility]/ZIP [place] [address] (ABNORMAL) BLOOD GAS 2 VENOUS (05/31/2022 11:24 AM EDT) P athologist Signature pH [place] 7.38 7.32 - [facility] 7.42 [facility] LABORATORY pCO2 [place] 40 (L) 41 - 51 [facility] LABORATORY pO2 [place] 18 (L) 25 - 40 [facility] LABORATORY HCO3 [place] 23.3 mmol/L [facility] LABORATORY BE Marco Antonio -1.8 mmol/L [facility] LABORATORY Hgb Blood Gas 7.0 (L) 13.7 - [facility] 16.5 g/dL [facility] LABORATORY O2HB Marco Antonio 24.3 % [facility] LABORATORY COHB Marco Antonio 1.4 % [facility] LABORATORY Comment: Nonsmokers: 0.5-1.5% COHB Smokers: Variable, but usually less than 10% Toxic: 20-30% COHB Lethal: Greater than 60% COHB METHB Marco [place] 1.7 (H) <=1.5 % [facility] LABORATORY Na Whole Blood 137 135 - 145 mmol/L [facility] LABORATORY K Whole Blood 3.9 3.5 - 5.0 mmol/L [facility] LABORATORY Comment: Please note: Patients with WBC >100,000 may have falsely elevated Potassium levels. Contact the Clinical Chemistry L aboratory if there are any questions. ICa Whole Blood 1.19 1.15 - 1.33 mmol/L [facility] LABORATORY Comment: Note: ??Total bilirubin higher than 20 m g/dL may lead to falsely low ionized calcium. CL Whole Blood 107 98 - 107 mmol/L [facility] LABORATORY Gluc Whole Bld 204 (H) 65 - 199 mg/dL [facility] LABORATORY Comment: Diabetes: >=200 mg/dL plus symp toms Lactate WB 1.4 0.5 - 2.2 mmol/L [facility] LABORATORY BGas Source Venous [facility] LABORATORY Specimen Anatomical Collection Method Collection Time Receive d Time (Source) Location / / Volume Laterality Blood 05/31/2022 11:24 05/31/2022 AM EDT 11:24 AM EDT Dominique Hinds MD CHEMISTRY ORDERABLES Performing Organization Address City/State/[place] [address] TSH Kidder (05/31/2022 11:20 AM EDT) P athologist Signature TSH 1.67 0.27 - 4.20 [facility] mcIU/mL [facility] LABORATORY Comment: Reference Interval (mcIU/mL): Females: ??First Trimester: 0.23-3.88 ??Second Trimester: 0.22-3.90 ??Third Trimester: 0.44-4.66 Specimen Anatomical Collection Method Collection Time Receive d Time (Source) Location / / Volume Laterality Blood 05/31/2022 11:20 05/31/2022 AM EDT 11:28 AM EDT Resulting Agency Comment Spec In Lab Dominique Hinds MD CHEMISTRY ORDERABLES Performing Organization Address City/State/ZIP Code Phon e Number [place] [id number]OSPITAL LABOR[address]ORY Drive XR Chest PA & [...] who have questions please contact the health manager care that requested your imaging first. ? [...] original. EXAMINATION: XR CHEST PA AND LATERAL (PlandreeIC) CLINICAL HISTORY: CHAMBERS, Fatigue. HFrEF, r ecent [...] interpretation and agree with the findings, Alan contrears MD at 05/31/2022 11:33 AM Thank you for letting us participate in the care of this patient. If you are a health care provider and have any questi ons regarding this report, please contact the number below. For patients w ho have questions please contact the health manager care that requested your imaging first. Electronically signed by: Alan strong MD, [facility] ([phone]), at 05/31/2022 11:33 AM Dominique Hinds MD IMG DX ORDERABLES Blue Tube HOLD (05/31/2022 10:50 AM EDT) athologist Signature Blue Hold Sample in [facility]feSystemsFAYESt[facility]. [facility] LABORATORY Specimen Anatomical Collection Method Collection Time Receive d Time (Source) Location / / Volume Laterality Blood Venous Draw / 05/31/2022 10:50 05/31/2022 Unknown AM EDT 11:05 AM EDT Brittany Ramirez MD HEMATOLOGY ORDERABLES Performing Organization Address City/State/Z[place] [address] Troponin (05/31/2022 10:50 AM EDT) athologist Signature Troponin-T <0.01 0.00 - 0.00 [place] ng/mL [facility] LABORATORY Comment: The 99th percentile for Troponin T is le ss than 0.01 ng/mL, any detectable cTnT concentration using this assay should be considered elevated. According to the third universal definit ion of myocardial infarction the following criteria with a clinical prese ntation consistent with acute myocardial ischemia meets the diagnosis for a myocardial infarction (TN). Detection of a rise and/or fall of [...] additional sample may be indicated. Reference: Third Patrick Definition of Myocardial Infarction. Journal of the [place] [employer] 2012;60:1581-98 Specimen Anatomical Collection Method Collection Time Receive d Time (Source) Location / / Volume Laterality Blood 05/31/2022 10:50 05/31/2022 AM EDT 11:03 AM EDT Resulting Agency Comment Spec In Lab Dominique Hinds MD CHEMISTRY ORDERABLES Performing Organization Address City/State/ZIP [place] [address] Phosphorus (05/31/2022 10:50 AM EDT)Only the most recent of2 resultswithin the time period is included. athologist Signature Phosphorus 3.2 2.5 - 4.5 ILDA ONEILCOCK mg/dL [facility] Specimen Anatomical Collection Method Collection Time Receive d Time (Source) Location / / Volume Laterality Blood 05/31/2022 10:50 05/31/2022 AM EDT 11:03 AM EDT Resulting Agency Comment Spec In Lab Dominique Hinds MD CHEMISTRY ORDERABLES Performing Organization Address City/[facility]/ZIP [facility] [place] [address] (ABNORMAL) pro-Brain Natriuretic Peptide (05/31/2022 10:50 AM EDT) P athologist Signature ProBNP 1,077 (H) <=449 ILDA FAYE pg/mL [facility] Specimen Anatomical Collection Method Collection Time Receive d Time (Source) Location / / Volume Laterality Blood 05/31/2022 10:50 05/31/2022 AM EDT 11:03 AM EDT Resulting Agency Comment Spec In Lab Dominique Hinds MD CHEMISTRY ORDERABLES Performing Organization Address City/[facility]/ZIP [place] [address] Lipase (05/31/2022 10:50 AM EDT) P athologist Signature Lipase 41 0 - 60 [facility] FAYE unit/L [facility] Specimen Anatomical Collection Method Collection Time Receive d Time (Source) Location / / Volume Laterality Blood Venous Draw / 05/31/2022 10:50 05/31/2022 Unknown AM EDT 11:11 AM EDT Resulting Agency Comment Spec In Lab Zain Champion MD CHEMISTRY ORDERABLES Performing Organization Address City/[facility]/ZIP [place] [address] (ABNORMAL) Hepatic Function Panel (05/31/2022 10:50 AM EDT) Analysis Performed At Patho logist Time Signature Total Protein 6.4 6.1 - 8.0 ILDA FAYE g/dL [facility] Albumin 4.1 3.2 - 5.2 ILDA FAYE g/dL [facility] AST 24 0 - 39 ILDA FAYE unit/L [facility] ALT 44 0 - 55 ILDA FAYE unit/L [facility] Alk Phos 63 40 - 130 [facility] unit/L [facility] Total <0.2 (L) 0.2 - 1.3 [facility] Bilirubin mg/dL [facility] Bili, Direct 0.1 0.0 - 0.3 [facility] Specimen Anatomical Collection Method Collection Time Receive d Time (Source) Location / / Volume Laterality Blood Venous Draw / 05/31/2022 10:50 05/31/2022 Unknown AM EDT 11:11 AM EDT Resulting Agency Comment Spec In Lab Zain Champion MD CHEMISTRY ORDERABLES Performing Organization Address City/State/ZIP [place] [address] EKG 12 Lead (05/31/2022 10:11 AM EDT)Only the most recent of3 resultswithin the time period is included. Component Value Ref Range Test Analysis Performed Pathologis t Method Time At Signature Ventricular rate 106 BPM MUSE SYSTEM QRS Duration 122 ms MUSE SYSTEM Q-T Interval 368 ms MUSE SYSTEM QTC Calculated 488 ms MUSE SYSTEM (Bezet) Calculated R [place] -43 degrees MUSE SYSTEM Calculated T [place] 109 degrees MUSE SYSTEM INTERPRETATION Atrial fibrillation [...] erpretation Confirmed by fellow MD Mike, [place] ([id number]) on 022 8:36:21 PM Confirmed by MD [...] SYSTEM - 05/20/2022 7:09 PM ED T ?[facility] ? Cardiac Cathete rization/Intervention Report ? Patient Name: Koko Bah. ? Procedure Date: 05/20/2022 ? A #: [id number] ? Primary Physician: Abundio Servin ? Case #: [id number] ? File Name: [id number] ? Catheterization Order Number: [id number] ? [facility] ? Final Report [place], [place] ? Patient Name: ? Koko Sullivan. Klarissa uson ? ID#: ?[id number] ? : ?1940 ? Procedure Date: ? [...] procedure was Urgent. 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 Chest pain symptom [...] 250cc of Iso-Ilda were opened, 189cc of Iso-Lida were administered ?and 61cc of Iso-Ilda were [...] ?3.5 guiding catheter and a 3.5 [address] ??20 Mhz. ??Imaging ?was successful. ??Image [...] A premounted 2. 75 x 30 mm [place] Geary (AMPARO) was deployed ? with a maximum [...] may require ?modification of this regimen. C [facility] Interventional Cardiology for ?questions. ?The 1 year [...] during these procedures. ?The attending physician was latoya t for the entire procedure. ?Dr. Abundio [...] 123 65 - 199 ILDA HAGEN mg/dL [facility] Comment: Supplemental ranges: <140 mg/dL before meals <180 mg/dL all other times of the day Specimen Anatomical Collection Method Collection Time Receive d Time (Source) Location / / Volume Laterality Blood 05/20/2022 5:42 PM 2 5:42 EDT PM EDT Fito Summers MD POINT OF CARE TEST ORDERABLE S Performing Organization Address City/State/ZIP [place] [address] (ABNORMAL) BMP w/fasting Glucose (05/20/2022 10:50 AM EDT) athologist Signature Glucose 152 (H) 65 - 99 [facility] Fasting mg/dL [facility] Comment: ?Fasting* Glucose Interpretive C [...] of Diabetes Mellitus, Position Statement from the [place] Diabetes Association. ??Diabete s Care, Volume 33, Supplement 1, Nov 2009 BUN 11 10 - 20 mg/dL [facility] Creatinine 0.63 (L) 0.80 - 1.50 mg/dL [facility] Sodium 137 135 - 145 mmol/L [facility] Potassium 3.6 3.5 - 5.0 mmol/L [facility] Comment: Please note: ??Patients with WBC >100,00 0 may have falsely elevated Potassium levels. ??For accurate Potassium quantif ication in these patients send serum separator tube (gold top) for subsequent determinations. ??Contact the Clinical Chemistry Laboratory if there are any qu estions. Chloride 103 98 - 107 mmol/L [facility] CO2 24 22 - 31 mmol/L [facility] Anion Gap 10 5 - 15 mmol/L [facility] Calcium 8.7 8.5 - 10.5 mg/dL [facility] [place] [facility] Estimated GFR 97 >=60 mL/min/1.73 m?? [facility] Comment: This patient's estimated [...] Organization Address City/State/ZIP [place] [address] TSH (05/18/2022 8:00 PM EDT) P athologist Signature TSH 2.27 0.27 - 4.20 [facility] mcIU/mL [facility] Comment: Reference Interval (mcIU/mL): Females: ??First Trimester: 0.23-3.88 ??Second Trimester: 0.22-3.90 ??Third Trimester: 0.44-4.66 Specimen Anatomical Collection Method Collection Time Receive d Time (Source) Location / / Volume Laterality Blood 05/18/2022 8:00 PM 8:06 EDT PM EDT Resulting Agency Comment Spec In Lab Fito Summers MD CHEMISTRY ORDERABLES Performing Organization Address City/State/ZIP [place] [address] (ABNORMAL) Urinalysis Microscopic Exam (05/16/2022 11:15 PM EDT) P athologist Signature RBC UA 8 (H) 0 - 3 /HPF [facility] WBC UA 2 0 - 3 /HPF [facility] Specimen Anatomical Collection Method Collection Time Receive d Time (Source) Location / / Volume Laterality Clean Catch 05/16/2022 11:15 05/16/2022 Urine PM EDT 11:30 PM EDT Resulting Agency Comment Spec In Lab Barbie Patiño MD URINE ORDERABLES Performing Organization Address City/State/Z[place] [address] XR Chest One View [...] who have questions please contact the health manager care that requested your imaging first. ? [...] ho have questions please contact the health manager care that requested your imaging first. Fito Summers MD IMG DX ORDERABLES ECHOCARDIOGRAM COMPLETE W CONTRAST (05/16/2022 12:49 PM EDT) P athologist Signature EF 28 [facility] Specimen (Source) Anatomical Collection Method Collection Time Re ceived Time Location / / Volume Laterality 05/16/2022 11:22 AM EDT Narrative HEARTLAB SYSTEM - 05/16/2022 1:54 PM EDT ?[facility] ? [facility] Center ?[address] ? [place] [address] ?Voice: ?Fax: ? Echocardiogram Report Name: KOKO BAH ?Study Date: 05/16/2022 11:22 AM ? Patient Location: 3T 0303 B : 1940 ? Height: 67.5 in ? Account: [id number] Age: 81 yrs ? Weight: 176 lb Gender: Male ?BSA: 1.9 m2 Ordering Physician: FITO SUMMERS Referring Physician: MALI FLORIAN Performed By: Jolene Bernard RDCS Exam Location: [facility]. Interpretation Summary Left ventricle is mildly dilated. [...] and LV systolic dysfunction are new. Procedure Complete-44512. Image enhancement Optiso n was used for [...] note might [place] [address] Voice: Fax: Echocardiogram Report Name: OKKO BAH Study Date: 05/2022 11:22 AM Patient Location: [address] [place] [address] B : 1940 Height: 67.5 in Account: [id number] Age: 81 yrs Weight: 176 lb Gender: Male BSA: 1.9 m2 Ordering Physician: FITO SUMMERS Referring Physician: MALI FLORIAN Performed By: Jolene Bernard RDCS Exam Location: [facility]. Interpretation Summary Left ventricle is mildly dilated. [...] and LV systolic dysfunction are new. Procedure Complete-[id number]. Image enhancement Optiso n was used for [...] Signature pH Art 7.33 (L) 7.35 - [facility] 7.45 [facility] pCO2 Art 41 35 - 45 [facility] LABORATORY pO2 Art 131 (H) 85 - 104 [facility] LABORATORY HCO3 Art 21.1 20.0 - [facility] 26.0 [facility] mmol/[facility] BE Art -4.8 (L) -3.0 - 3.0 [facility] mmol/L [facility] Hgb Blood Gas 13.4 (L) 13.7 - [facility] 16.5 g/dL [facility] O2HB Art 96.9 94.0 - [facility] 97.0 % [facility] COHB Art 1.4 % [facility] Comment: Nonsmokers: 0.5-1.5% COHB Smokers: Variable, but usually less than 10% Toxic: 20-30% COHB Lethal: Greater than 60% COHB METHB Art 0.3 <=1.5 % [facility] Na Whole Blood 139 135 - 145 mmol/L [facility] K Whole Blood 3.8 3.5 - 5.0 mmol/L [facility] Comment: Please note: Patients with WBC >100,000 may have falsely elevated Potassium levels. Contact the Clinical Chemistry L aboratory if there are any questions. ICa Whole Blood 1.32 1.15 - 1.33 mmol/L [facility] Comment: Note: ??Total bilirubin higher than 20 m g/dL may lead to falsely low ionized calcium. CL Whole Blood 113 (H) 98 - 107 mmol/L [facility] Gluc Whole Bld 136 65 - 199 mg/dL [facility] Comment: Diabetes: >=200 mg/dL plus symp toms. Lactate WB 2.0 0.5 - 2.2 mmol/L [facility] Specimen Anatomical Collection Method Collection Time Receive d Time (Source) Location / / Volume Laterality Blood 05/15/2022 3:33 PM 3:[address] Jamel Torre MD CHEMISTRY ORDERABLES Performing Organization Address City/[facility]/ZIP [place] [address] (ABNORMAL) APTT (05/15/2022 12:30 PM EDT) P athologist Signature PTT 76 (H) 25 - 37 sec [facility] Comment: The PTT is [...] Morales DO HEMATOLOGY ORDERABLES Performing Organization Address City/[facility]/ZIP [place] [address] (ABNORMAL) Prothrombin Time (05/15/2022 12:30 PM EDT) P athologist Signature PT 12.9 (H) 9.4 - 12.5 [facility] LABORATORY INR 1.1 [facility] Comment: An INR <2.0 [...] Organization Address City/State/ZIP Code Phon e Number [address] Gold Tube HOLD (05/15/2022 12:20 PM EDT) athologist Signature Gold Hold Sample in [facility]. [facility] Specimen Anatomical Collection Method Collection Time Receive d Time (Source) Location / / Volume Laterality Blood No Charge / 05/15/2022 12:20 05/15/2022 Unknown PM EDT 12:20 PM EDT Lc TRIPP CHEMISTRY ORDERABLES Performing Organization Address City/[facility]/ZIP Code Phon e Number [address] CK (05/15/2022 12:00 PM EDT) athologist Signature CK, Total 87 0 - 200 [facility] unit/L [facility] Specimen Anatomical Collection Method Collection Time Receive d Time (Source) Location / / Volume Laterality Blood Venous Draw / 05/15/2022 12:00 05/15/2022 Unknown PM EDT 12:19 PM EDT Resulting Agency Comment Spec In Lab Fito Summers MD CHEMISTRY ORDERABLES Performing Organization Address City/[facility]/ZIP Code Phon e Number [address] Film Library- Storage Only CT Abdomen (05/15/2022 9:32 AM EDT) Specimen (Source) Anatomical Location Collection Method / Collectio n Time Received Time / Laterality Volume Narrative DH RAD - 05/15/2022 9:32 AM EDT This exam is auto-finalizing. It's purpo se is for storage only. Matt Branham MD IMG FILM LIBRARY ORDERABLES Performing Organization Address City/[facility]/ZIP Code Phon e Number [place] Film Library- Storage Only DX Chest (05/15/2022 9:31 AM EDT) Specimen (Source) Anatomical Location Collection Method / Collectio n Time Received Time / Laterality Volume Narrative DH RAD - 05/15/2022 9:31 AM EDT This exam is auto-finalizing. It's purpo se is for storage only. Matt Branham MD IMG FILM LIBRARY ORDERABLES Performing Organization Address City/[facility]/ZIP Code Phon e Number [facility] [place], [place] from Last 3 Months Insurance Payer Benefit Plan / Subscriber ID Effective Phone Address T ype Group Dates MEDICARE MEDICARE PART A [id number] 2007-Pres [id number] [facility] [place] [phone] [facility] [id number] 2007-Pres [phone] [address] [facility] ent [address] [place] [address] Advance Directives Latest Code Status on File [...] capacity to make decision: Yes Care Teams Production Recorder Relationship Specialty Start Date End Date Abby Das MD PCP - General 10/02/[address] [place] [address] [place] [phone]
--- OUTSIDE RECORDS SUMMARY | 2022-06-23 03:49 | XMS_ITS | Encounter Summary ---
:1940 Author Organization [facility] [place] [address] Care Team Providers Name Role Phone Bobby Das MD Primary Care Provider Encounter Details Date Type Department Care Team Description 05/28/2022 Telephone Vascular Surgery at [facility] Dominique Bolivar, [place] [address] Social History Tobacco Use Types Packs/Day [...] RN - 05/28/2022 1:20 PM EDT This business writer returned phone call due to 's concern [...] cardiac history and symptoms of lightheadedness, this business writer recommended the patient be evaluated. Discussed going to local ED ([facility]) where staff could also phone vascular and/or cardiac at D- for planning. The patient agreed to do this after he has lunch. documented in this encounter Plan of Treatment Upcoming Encounters Date Type Specialty Care Team Description 07/02/2022 Office Visit Vascular Surgery Jing Ghosh APRN [facility] DR VASCULAR SURGERY [place], [place] [address] (Wo rk) 09/02/2022 Clinical Support Dermatology Thai Lynn MD [facility] DR JENNY BILLY-DERMAT [place], [place] [address] (Wo rk) 09/02/2022 Procedure visit Dermatology Jace Lynn MD [facility] DR JENNY BILLY-DER[facility] [place], [place] [address] (Wo rk) 09/05/2022 Appointment Cardiology Trinity Reid MD [facility] CARDIOLOGY [place], [place] [address] (Wo rk) 09/05/2022 Office Visit Cardiology Trinity Reid MD [facility] DR WARNER [place], [place] [address] (Wo rk) documented as of this encounter Visit Diagnoses Not on filedocumented in this encounter Care Teams Union Carpenter Relationship Specialty Start Date End Date Bobby Das MD PCP - General 10/02/[address] [place] [address] [place] [address] documented as of this encounter
--- OUTSIDE RECORDS SUMMARY | 2022-06-23 03:49 | XMS_ITS | Encounter Summary ---
:1940 [place] [address] Care Team Providers Name Role Phone Bobby Das MD Primary Care Provider Reason for Referral Diagnostic Test (Routine) - Closed Specialty Diagnoses / Procedures Referred By Contact Refer red To Contact Cardiology Diagnoses Paroxysmal atrial fibrillation Nasrin Parra PA [facility] Non-Inv Card Lab Procedures Ziopatch 48 Hrs-15 Days [facility] VASCULAR SURGERY [place], [place] [id number] [place] [phone] Fax: Referral ID Status Reason Start Date Expiration Date Visits V isits Requested Authorized [id number] Closed Specialty 05/21/2022 10/21/2022 1 1 Service Requested Reason for Visit Auth/Cert Specialty Diagnoses / Procedures Referred By Contact Refer red To Contact Diagnoses Limb ischemia LLE thrombus Fito Summers MD [facility] [place] [address] Referral ID Status Reason Start Date Expiration Date Visits Requ ested Visits Authorized [id number] 1 1 Encounter Details Date Type Department Care Team Description 05/21/2022 Hospital Encounter Non-Invasive Paroxysma l atrial [place] [phone] Social History Tobacco Use Types Packs/Day [...] 04/12/20 21 (FLONASE) 50 mcg/actuation Nare route [place], Suspension daily as needed. fluorouraciL (EFUDEX) 5 [...] Jing Ghosh APRN [facility] VASCULAR SURGERY [place], [place] [address] (Wo rk) 09/02/2022 Clinical Support Dermatology Thai Lynn MD [facility] DR JENNY BILLY-DERMAT [place], [place] [address] (Wo rk) 09/02/2022 Procedure visit Dermatology Jace Lynn MD [facility] DR JENNY BILLY-DERMAT [place], [place] [address] (Wo rk) 09/05/2022 Appointment Cardiology Trinity Reid MD [facility] CARDIOLOGY [place], [place] [address] (Wo rk) 09/05/2022 Office Visit Cardiology Trinity Reid MD [facility] CARDIOLOGY [place], [place] [address] (Wo rk) documented as of [...] fibrillation documented in this encounter Care Teams Bicycle Designer Relationship Specialty Start Date End Date Bobby Das MD PCP - General 10/02/[address] [place] [address] [place] [phone] documented as of this encounter
--- OUTSIDE RECORDS SUMMARY | 2022-06-23 03:49 | XMS_ITS | Encounter Summary ---
:1940 Author Organization [facility] [place] [address] Care Team Providers Name Role Phone Bobby Das MD Primary Care Provider Encounter Details Date Type Department Care Team Description 05/24/2022 Telephone Cardiology at [facility] Kourtney Jimenez, RN [facility] [place] [address] Social History Tobacco Use Types Packs/Day [...] 07/02/2022 Office Visit Vascular Surgery Jing Ghosh, COMMERCIAL ACCOUNT EXECUTIVE [facility] [place] [address] (Wo rk) 09/02/2022 Clinical Support Dermatology Thai Lynn MD [facility] ER DR JENNY BILLY-DERMAT [place], [place] [address] (Wo rk) 09/02/2022 Procedure visit Dermatology Jace Lynn MD [facility] DR JENNY BILLY-DERMAT [place], [place] [address] (Wo rk) 09/05/2022 Appointment Cardiology Trinity Reid MD [facility] CARDIOLOGY [place], [place] [address] (Wo rk) 09/05/2022 Office Visit Cardiology Trinity Reid MD [facility] CARDIOLOGY [place], [place] [address] (Wo rk) documented as of this encounter Visit Diagnoses Not on filedocumented in this encounter Care Teams Coil Cleaner Relationship Specialty Start Date End Date Bobby Das MD PCP - General 10/02/[address] [place] [address] [place] [phone] documented as of this encounter
--- OUTSIDE RECORDS SUMMARY | 2022-06-23 03:49 | XMS_ITS | Encounter Summary ---
:1940 Author Organization [facility] [place] [address] Care Team Providers Name Role Phone Bobby Das MD Primary Care Provider Reason for Referral Consultation (Routine) - Authorized Specialty Diagnoses / Procedures Referred By Contact Refer red To Contact Diagnoses Non-ST elevation myocardial infarction (NSTEMI) Limb ischemia Nasrin Parra PA [facility] Tobacco Treatment [facility] [place] [address] [place] [address] Referral ID Status Reason Start Date Expiration Visits Visits Date Requested Authorized [id number] Authorized Consult, 05/21/2022 05/21/2023 1 1 Test & Treat iagnostic Test (Routine) - Closed Specialty Diagnoses / Procedures Referred By Contact Refer red To Contact Cardiology Diagnoses Paroxysmal atrial fibrillation Nasrin Parra PA [facility] Non-Inv Card Lab Procedures Ziopatch 48 Hrs-15 Days [facility] [place] [address] [place] [address] Fax: Referral ID Status Reason Start Date Expiration Date Visits V isits Requested Authorized [id number] Closed Specialty 05/21/2022 10/21/2022 1 1 Service Requested Consultation (Routine) - Closed Specialty Diagnoses / Procedures Referred By Contact Refer red To Contact Cardiology Diagnoses HFrEF (heart failure with reduced ejection fraction) Paroxysmal atrial fibrillation Post-hospital follow-up, s/p PCI with stenting, heart failure Nasrin Parra PA [facility] Cardiology 4a [facility] D R [facility] [place] [address] [place] [address] Referral ID Status Reason Start Date Expiration Date Visits V isits Requested Authorized [id number] Closed Consult, 05/21/2022 05/21/2023 1 1 Test & Treat iagnostic Test (Routine) - Authorized Specialty Diagnoses / Procedures Referred By Contact Refer red To Contact Diagnoses Limb ischemia Nasrin Parra PA [facility] Vascular Lab 3v Procedures JOSSELYN, legs, multiple levels [facility] [place] [address] [place] [address] Referral ID Status Reason Start Expiration Visits Visits Date Date Requested Authorized [id number] Authorized Specialty 05/21/2022 05/21/2023 1 1 Service Requested [facility] (Routine) - Authorized Specialty Diagnoses / Procedures Referred By Contact Refer red To Contact Diagnoses Limb ischemia Fito Summers MD [facility], [facility] [place] [address] [place] [address] [address] Fax: Referral ID Status Reason Start Date Expiration Visits Visits Date Requested Authorized [id number] Authorized Consult, 05/21/2022 11/17/2022 999 999 Test & Treat Reason for Visit Reason Comments Left Leg Pain Auth/Cert Specialty Diagnoses / Procedures Referred By Contact Refer red To Contact Diagnoses Limb ischemia LLE thrombus Fito Summers MD [facility] [place] [address] Referral ID Status Reason Start Date Expiration Date Visits Requ ested Visits Authorized [id number] 1 1 Encounter Details Date Type Department Care Team Description 05/15/2022 - Hospital Intermediate Cardiac Ravi Summers MD [facility] [place] [address] Atrial fibrillation, unspecified type; 05/21/2022 Encounter Care Unit Wellington Gerard MD [facility] [place] [address] Non-ST elevation myocardial infarction ( NSTEMI); [facility] Limb isch emia; [facility] HFrEF (heart failure with re duced ejection fraction); [facility] Paroxysma [place] [address] Social History Tobacco Use Types Packs/Day Years [...] onset Afib who presents in transfer from [facility] with acute limb ischemia of the [...] emergently went to the OR for L CLINICAL SPECIALIST transverse arteriotomy and primary repair, thromboembolectomy of L SFA/PFA/CLINICAL SPECIALIST, reperfusion venous drainage for 250 cc, [...] Discharge Condition: Good Discharge to: Home with [address] [address] Future Appointments and Orders Future Appointments and Orders Future Appointments Provider Department Dept Phone 05/23/2022 10:30 AM Loretta Cohen MD Dermatology at [facility] Arrive at: Relationship Banker [address] [place] [address] 06/07/2022 1:30 PM Gail Rae APRN Vascular Surgery at [facility] Arrive at: Relationship [facility]er Area [phone] 06/13/2022 7:30 AM Edson Lagos [place] Vascular Lab at [facility] Arrive at: Relationship [employer]er Area [phone] 06/13/2022 8:00 AM Fito Summers MD Vascular Surgery at [facility] Arrive at: Relationship Banker Area [phone] 06/13/2022 10:00 AM Alan Reid MD Cardiology at [facility] Arrive at: Relationship Banker Area [phone] Future Orders Complete By Expires Demetriusopatch 48 Hrs-15 Days [[id number] CPT(R)] 05/21/2022 11/20/2022 Process Instructions: Scheduling Instructions: Comments: Questions: Does the patient have a pacemaker? If yes provide HI/LO settings: Apply for 7 or 14 days?: 7 Where will study be performed?: [facility] Clinics JOSSELYN, legs, multiple levels [VAS8 Custom] 06/21/2022 (Approximate) 12/21/2022 Process Instructions: There is no in-house vascular label coder available on weeknights (5pm-8am), weekends, or holidays. IF THIS IS A REQUEST FOR AN EMERGENT STUDY DURING THOSE HOURS, please have the senior provider responsible for the patient page the Vascular Surgery Fellow/Senior Resident operations officer trust department to discuss options. Scheduling Instructions: Questions: Indication for study/signs & symptoms: ALI s/p L fem cutdown with thromboembolectomy Question to be answered: Perfusion to feet? Please check toe pressure Preferred location?: [facility] Clinics Referral to Cardiology [REF12 Custom] As [...] Zamora for admission to Home Health. [address] [facility] [address] (home) Date of : 1940 Inpatient DOCUMENTATION FOR VNA SERVICES (INCLUDING THOSE PATIENTS WITH MEDICARE COVERAGE REQUIRING HOME VNA SERVICES AND/OR HOSPICE SERVICES) PATIENT'S LOCATION: Koko Zamora [address] [facility] [phone] (home) Cell: No relevant phone numbers on file. Reflexologist's Name: Koko In discussion with the attending physician, it is certified that this patient is under their care and that they, or a Nurse Practitioner,Clinical Nurse specialist or Physician Chick Grader who is working directly with them, had [...] for managing ADL's. HOME HEALTH CARE AGENCY: [facility] [address] [place] [address] Start of care: Within 24 to 48 [...] obtained from this patient'sPCP: Bobby Das MD [address] [place] [phone] All A agencies which cover the [...] For any problems or questions please call [phone] For issues on weeknights after 5pm and weekends please call [phone] and ask for the Vascular Fellow operations officer trust department. JOSEE Santiago Vascular Surgery 05/21/2022 documented in [...] For any problems or questions please call [phone] For issues on weeknights after 5pm and weekends please call [phone] and ask for the Vascular Fellow operations officer trust department. documented in this encounter Medications at Time [...] 04/12/20 21 (FLONASE) 50 mcg/actuation Nare route Oscar, Suspension daily as needed. fluorouraciL (EFUDEX) 5 [...] onset Afib who presents in transfer from [facility] with acute limb ischemia of the [...] status, full code. JOSEE Santiago 05/21/2022 Pager: [phone] Brannon Isaacs, PT - 05/21/2022 10:35 AM [...] plan as stated. Time IN / OUT: 5013-1597 Total Minutes, Physical Therapy: 25 Billing Code: 2 BOSTON Isaacs DPT Pager: [phone] Physical Therapy Inpatient Rehabilitation Department Wellington Jean [...] from 05/15/2022 in Intermediate Cardiac Care Unit [facility] Office Visit from 04/17/2021 in Pain and Spine Center at [facility] Weight 79.8 kg (175 lb 14.8 oz) [...] and plan of care per Dr. Mcnamara (triage nurse). Please refer to her note above for [...] limb ischemia (thromboembolic) and he is a intermediate card tender smoker (1/2 ppd, recommend nicotine patch). His [...] to Hosp-Admission (Current) from 05/15/2022 in 4 [facility] Office Visit from 04/17/2021 in Pain and Spine Center at [facility] Weight 79.8 kg (175 lb 14.8 oz) [...] findings andplan of care per Dr. Mcnamara (triage nurse). Please refer to her note above for [...] a mitral repair in 2000 (not at [facility]) with no CAD at that time. Currently, [...] AF and the first documented HR at [facility] was 125 bpm (presented to an an [...] onset Afib who presents in transfer from [facility] with acute limb ischemia of the [...] management following Dottie Hill APRN 05/20/2022 Pager: [phone] Laney Atkins RN - 05/20/2022 1:14 AM EDT Pt Koko transferred to room from [facility]. A&Ox4, oriented to room and call boo. Masimo and telemetry placed. In agreement with assessment as documented this evening by Nuris ASHLEY. No complaints at this time. Pt aware of NPO status and plan for cardiac cath in AM. Urinal provided. Resting comfortably in bed. Nuris Lester RN - 05/20/2022 1:09 AM EDT Pt. Transferred to [facility]. RN accompanied patient to floor and handed off to [facility] RN Dottie Hill APRN - 05/19/2022 10:02 AM EDT Vascular Surgery Progress Note Koko Zamora is a 81 y.o. male with w new onset Afib who presents in transfer from [facility] with acute limb ischemia of the LLE. ?? The patient had sudden pain starting at 630 05/15/22, he presented [facility] where he was placed on heparin. [...] management following Dottie Hill APRN 05/19/2022 Pager: [phone] Emily Greer RN - 05/19/2022 6:28 AM EDT OUTCOME EVALUATION NOTE: OUTCOME SUMMARY: Patient AOx4, VSS on RA. Afib on tele. HR controlled w/ PRN metop, given x2. Denies CP, SOB, n/v. See flowsheets for NVC. Dressings to LLE CDI, prevena WV to groin intact. Voiding to urinal. LBM LICENSED SURVEYOR, patient stating he will maybe try the [...] adequately without difficulty to bedside urinal. LBM LICENSED SURVEYOR. Up to chair this AM with nursing staff. Worked with PT, tolerated well. Diet changed to regular at 1800.Plan is for cardiac cath on Friday. PLAN MOVING FORWARD: Bleeding precautions Pain management neurovascular checks PT/OT fish farm laborer INDIVIDUALIZED FALL PREVENTION INTERVENTIONS: Patient-specific fall risk [...] onset Afib who presents in transfer from [facility] with acute limb ischemia of the [...] mL Intravenous BID ??? PHENobarbitaL 0.12 mg/kg/dose ([place]) Oral BID ??? thiamine 100 mg Oral [...] management following Dottie Hill APRN 05/18/2022 Pager: [phone] Brannon Isaacs, PT - 05/18/2022 10:00 AM [...] IR Biopsy Spine 07/20/2019 Bobby Marshall MD [facility] INTERVENTIONL RAD ??? IR VERTEBROPLASTY LUMBAR MULTIPLE LEVELS 07/20/2019 IR Vertebroplasty Lumbar Multiple Levels 07/20/2019 Bobby Marshall MD [facility] INTERVENTIONL RAD ??? IR VERTEBROPLASTY THORACIC SINGLE LEVEL 10/25/2020 IR Vertebroplasty Thoracic Single Level 10/25/2020 Matt Chisholm MD [facility] INTERVENTIONL RAD ??? PRO EMBLC/THRMBC FEMORAL POPLITEAL AORTO-ILIAC ARTERY Left 05/15/2022 EMBOLECTOMY OR THROMBECTOMY, FEMOROPOPLITEAL, AORTOILIAC ARTERY BY LEG INCISION (WRVU 19.48) performed by Fito Summers MD at [facility] MAIN OR Social History: Pt lives with [...] in this evaluation. Time IN / OUT: 0357-9889 Total Minutes, Physical Therapy: 30 Billing Code: Basilio Isaacs, PT Pager: [phone] Physical Therapy Inpatient Rehabilitation Department Emily Sauceda RN - 05/18/2022 4:34 AM EDT OUTCOME EVALUATION NOTE: OUTCOME SUMMARY: Patient AOx4, VSS on 2LNC. Afib on tele. HR above 120, MD aware, PRN IV metop given x1, HR returned to 90's-low 100's. Denies CP, SOB, n/v. See flowsheets for NVC. Dressings to LLE CDI, prevena WV to groin intact. Voiding to urinal. LBM LICENSED SURVEYOR. Heparin gtt therapeutic. Pain controlled. Patient sleeping [...] adequately without difficulty to bedside urinal. LBM LICENSED SURVEYOR. Patient not OOB this shift. Currently NPO awaitingprocedure in custodial laborer. PLAN MOVING FORWARD: Bleeding precautions Pain management neurovascular checks PT/OT NPO for custodial laborer INDIVIDUALIZED FALL PREVENTION INTERVENTIONS: Patient-specific fall risk [...] the Emergency Department as a transfer from [facility] with left lower extremity limb ischemia. He went to [facility] and was startedon heparin and transferred to [facility] for evaluation by vascular surgery with [...] he will will be going to the custodial laborer for evaluation. Will defer PT eval at present but will see as ordered post cardiac catheritizaton. Social Hx:Pt lives with his Ursula in [place], [place] in a 2 level home in [...] WBAT LLE LISBET HERMAN PT Pager # [phone] In-Pt Rehab Medicine Dottie Hill APRN - 05/17/2022 7:42 AM EDT Vascular Surgery Progress Note Koko Zamora is a 81 y.o. male with w new onset Afib who presents in transfer from [facility] with acute limb ischemia of the [...] mL Intravenous BID ??? PHENobarbitaL 0.24 mg/kg/dose ([place]) Oral BID Followed by ??? [START ON 05/18/2022] PHENobarbitaL 0.12 mg/kg/dose ([place]) Oral BID ??? thiamine 100 mg Oral [...] management following Dottie Hill APRN 05/17/2022 Pager: [phone] Sary Dos Santos, RN - 05/17/2022 12:16 [...] onset Afib who presents in transfer from [facility] with acute limb ischemia of the [...] mL Intravenous BID ??? PHENobarbitaL 0.48 mg/kg/dose ([place]) Oral BID Followed by ??? [START ON 05/17/2022] PHENobarbitaL 0.24 mg/kg/dose ([place]) Oral BID Followed by ??? [START ON 05/18/2022] PHENobarbitaL 0.12 mg/kg/dose ([place]) Oral BID ??? thiamine 100 mg Oral [...] management following Edward Rodríguez MD 05/16/2022 Pager: [phone] Sary Dos Santos RN - 05/16/2022 12:52 [...] 2129 Hand off to DION Ramirez 3 [place] documented in this encounter H&P Notes Kerry [...] onset Afib who presents in transfer from [facility] with acute limb ischemia of the [...] IR Biopsy Spine 07/20/2019 Bobby Marshall MD [facility] INTERVENTIONL RAD ??? IR VERTEBROPLASTY LUMBAR MULTIPLE LEVELS 07/20/2019 IR Vertebroplasty Lumbar Multiple Levels 07/20/2019 Bobby Marshall MD [facility] INTERVENTIONL RAD ??? IR VERTEBROPLASTY THORACIC SINGLE LEVEL 10/25/2020 IR Vertebroplasty Thoracic Single Level 10/25/2020 Matt Chisholm MD [facility] INTERVENTIONL RAD Social Hx: Social History Socioeconomic [...] Refill ??? fluticasone propionate (FLONASE) 50 mcg/actuation Oscar, Suspension as needed. ??? fluorouraciL (EFUDEX) 5 [...] and consented. Tim Chicas MD 05/15/2022 Pager: [phone] documented in this encounter ED Notes Lc Harris PA - 05/15/2022 1:20 PM EDT ED Provider Note HPI: Koko Zamora is a 81 y.o. male with history of atrial fibrillation not on anticoagulation, and GI bleeding who presents to the Emergency Department as a transfer from [facility] with left lower extremity limb ischemia. Patient says that the symptoms started roughly 630 this morning when he developed severe pain in his left lower extremity. He went to [facility] and was started on heparin and transferred to [facility] for evaluation by vascular surgery. Review [...] lower extremity earlier today and went to [facility] where it was determined that he had ischemia of the left lower extremity. Vascular surgery [facility] was contacted and he was transferred [...] orders before pt. Arrival. Pt. Arrived at [facility] by EMS at 1150, vascular team at [...] in an outpatient cardiac rehabilitation program at [facility] was discussed. Patient agrees to a referral to this program. Timing will depend on his recovery from Vascular surgery. He is going home w/VNA PT. I gave him the brochure for the program at [facility] for future reference. Care Management Discharge [...] information for follow-up Home Health & Hospice, [place] [address] [place] [address] Transportation: family or friend will provide Functional [...] Type: *No Product type* / Secondary Insurance: [facility] Prescription Coverage: Yes This plan was formulated with input from patient and team. All are in agreement with plan. IP RS has communicated with [facility] - for initial IMM. RAlmita (Satish) DION López RN/CM - Cellphone: [phone] Pager: [phone] Covering Service RN/CM Plan of Care - [...] catheterization, transferred in hospital bed accompanied by Governor Assembler RN, remains on telemetry monitoring. Heparin gtt [...] Type: *No Product type* / Secondary Insurance: [facility] Last Physical Therapy Recommendation: home with home health, home with supervision with None Last Occupational Therapy Recommendation: with Plan for discharge is: Home w/ Services Outpatient Agency/Support Group Needs: None Home Health Services: Registered Nurse, Physical Therapy, Occupational Therapy Agency Referrals: I have met with the patient to: ?? discuss discharge planning needs. ?? provide the [facility], Office of Care Management letter from the [employer] Test Engineer pertaining to rehab referrals. ?? provide a letter describing our affiliations within the [facility] and educate about their right to choose where referrals are sent. ?? provide a list of Home Health Agencies / Durable Medical Equipment vendors which serve their preferred geographic area. ?? provided patient with [facility] Star Quality Rating handout. They have requested referrals to: [facility]. [address] [place] [address] Note routed to a Sap [employer] Programmer who will communicate referrals to facilities and provide any required information. Transportation: family or friend will provide Barriers to discharge: None Plan going forward: Patient is going for a cardiac cath today and plan will come from there. Patientwas recently seen by PT and they recommend VNA at time of discharge. [place] was routed and pendedat this time. Care Management will continue to follow and assist with discharge planning and coordination of care as indicated. Anticipated Date of Discharge: 05/21/2022 Nataly RICHMOND RN Phone: [phone] Pager: [phone] Plan of Care - Laney Atkins RN [...] from the original note were not included. [facility] [place] [address] [address] INPATIENT CARDIOLOGY CONSULT NOTE Date of Consultation: 05/17/2022 Admit Date: 05/15/2022 Hospital Day 2 days Reason for Consult: New afib Active Problems: Active Hospital Problems Diagnosis Limb ischemia Resolved Hospital Problems No resolved problems to display. HPI: Koko Zamora is a 81 y.o. male with a PMHx significant for MVP (s/p MV repair 2000), tobacco use, HLD, who presented to [facility] from OSH on 05/15 with acute limb ischemia of LLE and was found to be in atrial fibrillation. Patient had sudden onset LLE pain on 05/15 and presented to [facility], where he was started on heparin and transferred to [facility]. Upon arrival to [facility], patient was in atrial fib with [facility] [...] IR Biopsy Spine 07/20/2019 Bobby Marshall MD [facility] INTERVENTIONL RAD IR VERTEBROPLASTY LUMBAR MULTIPLE LEVELS 07/20/2019 IR Vertebroplasty Lumbar Multiple Levels 07/20/2019 Bobby Marshall MD [facility] INTERVENTIONL RAD IR VERTEBROPLASTY THORACIC SINGLE LEVEL 10/25/2020 IR Vertebroplasty Thoracic Single Level 10/25/2020 Matt Chisholm MD [facility] INTERVENTIONL RAD PRO EMBLC/THRMBC FEMORAL POPLITEAL AORTO-ILIAC ARTERY Left 05/15/2022 EMBOLECTOMY OR THROMBECTOMY, FEMOROPOPLITEAL, AORTOILIAC ARTERY BY LEG INCISION (WRVU 19.48) performed by Fito Summers MD at [facility] MAIN OR Allergies Allergen Reactions Aspirin Other (See Comments) GI bleed Out-Patient Medications: Medications Prior to Admission Medication Sig Dispense Refill Last Dose fluorouraciL (EFUDEX) 5 % Cream daily. CRESTOR 40 mg Tablet Take 40 mg by mouth daily. fluticasone propionate (FLONASE) 50 mcg/actuation Oscar, Suspension as needed. ascorbic acid, vitamin C, [...] 5 mL Intravenous BID PHENobarbitaL 0.24 mg/kg/dose ([place]) Oral BID Followed by [START ON 05/18/2022] PHENobarbitaL 0.12 mg/kg/dose ([place]) Oral BID thiamine 100 mg Oral Daily folic acid 1,000 mcg Oral Daily multivitamin with minerals 1 tablet Oral Daily heparin (porcine) infusion 1,200 Units/hr (05/17/22 0164) Family History: No family history on file. [...] ED to Hosp-Admission (Current) from 05/15/[address] [place] [address] Office Visit from 04/17/2021 in Pain and Spine Center at [facility] Weight 79.8 kg (175 lb 14.8 oz) [...] continue to follow Anne-Marie Larson MD Pager [phone] Clinic: [phone] 05/17/22 6:22 PM Initial Assessments - Ifrah [...] spouse would be surrogate decision maker per [place] surrogate decision making law. (Only good for 180 days) Any patient receiving care at [facility] must abide by [place] law. The hierarchy for surrogate decision making [...] (i) The agent with financial power of family law attorney or a conservator appointed in accordance [...] raised toilet seat Home Address confirmed as: [facility] [facility] [address] Social & Family Supports: All names listed below confirmed with patient as Incorrect. Will notify conifer to correct. Wifes address is same as and phone is [phone]. Extended Emergency Contact Information Primary Emergency Contact: Demarco Zamorana Address: [facility] [place] [address] [facility] Relation: Spouse Current Care Provided by: [...] Type: *No Product type* / Secondary Insurance: [facility] Prescription Coverage: Yes Preferred Pharmacy: [id number] - [place], [place] - [address] [facility] [address] [facility] [place] [address] [facility] - [place], [place] - [address] [facility] [address] [facility] [address] [place] Status: Patient is a : unable to assess Primary Care Provider: Bobby Das MD [phone] Patient/Caregiver Goals of Treatment: to walk again Potential Needs for Transition of Care: none noted per 05/16 IDR Transportation: family will provide Transportation Anticipated: family or friend will provide Concerns to be Addressed: no discharge needs identified Assessment: Patient is admitted to vascular surg service for left lower extremity limb ischemia Plan: Per PT OT recommendations . Has used [employer] in the past. A member of the Care Management team will continue to monitor progress, follow for continuity of care and assist with transition of care planning. Ifrah Bell RN BSN Lab AnalystStation Inspector of Care Management Pager [phone] Brief Op Note - Erin Garza MD - 05/15/2022 5:04 PM EDT Brief Operative Note Patient Name: Koko Zamora : [id number] MR#: [id number] Case Date: 05/15/2022 Surgeon: Surgeon(s) and Role: [...] Garza MD - 05/15/2022 2:08 PM EDT [facility] Operative Note Patient Name: Koko Zamora : [id number] MR#: [id number] Case Date: 05/15/2022 Surgeon: Surgeon(s) and Role: * iFto Summers MD - Primary * Erin Garza [...] 07/02/2022 Office Visit Vascular Surgery Jing Ghosh, FEED IN WORKER [facility] ER VASCULAR SURGERY [place], [place] [address] (Wo rk) 09/02/2022 Clinical Support Dermatology Thai Lynn MD [facility] DR [place]NY [place], [place] [address] (Wo rk) 09/02/2022 Procedure visit Dermatology Jace Lynn MD [facility] DR [place], [place] [address] (Wo rk) 09/05/2022 Appointment Cardiology Trinity Reid MD [facility] CARDIOLOGY [place], [place] [address] (Wo rk) 09/05/2022 Office Visit Cardiology Trinity Reid MD [facility] CARDIOLOGY [place], [place] [address] (Wo rk) Scheduled Referrals Name [...] Component Value Ref Test Analysis Performed At [facility] Range Method Time Signature VB Text Department: Vascular Surgery Lab VASCUBASE Report Patient: [id number] (KOKO ZAMORA) CPT: 32910 Referring Physician: FITO SUMMERS ?? Phone: Indications: s/p L CLINICAL SPECIALIST endart. Diabetes mellitus: no Findings: Right [...] P athologist Signature Heparin UFH 0.42 IU/mL [facility] LABORATORY Comment: Heparin (anti-Xa) levels [...] Organization Address City/State/[place] [address] Differential, Automated (05/21/2022 6:15 AM EDT) P athologist Signature Neutrophils % 58.8 % [facility] LABORATORY Neutr Abs (ANC) 3.97 1.70 - [facility] 6.10 [facility] x10(3)/[facility] LABORATORY Lymphocytes % 25.2 % [facility] LABORATORY Lymphocytes Abs 1.7 0.9 - 3.2 [facility] x10(3)/[facility] LABORATORY Monocytes % 12.9 % [facility] LABORATORY Monocyte Abs 0.9 0.3 - 0.9 [facility] x10(3)/[facility] LABORATORY Eosinophils % 2.1 % [facility] LABORATORY Eosinophils Abs 0.1 0.0 - 0.4 [facility] x10(3)/[facility] LABORATORY Basophils % 0.4 % [facility] LABORATORY Basophils Abs 0.0 0.0 - 0.1 [facility] x10(3)/[facility] LABORATORY Immature Gran % 0.60 % [facility] LABORATORY Comment: Immature granulocytes(IG's)percentage an d absolute count will include metamyelocytes, myelocytes, and promyelo cytes. Blood smears from CBCs yielding IG's will be scanned manually for concor dance. If this scan disagrees with the automated IG or if promyelocytes are not ed, a manual differential will be performed. Rain Gran Abs 0.04 0.00 - 0.04 x10(3)/[facility] LABORATORY Specimen Anatomical Collection Method Collection Time Receive d Time (Source) Location / / Volume Laterality Blood 05/21/2022 6:15 AM 6:38 EDT AM EDT Resulting Agency Comment Spec In Lab Edward Rodríguez MD HEMATOLOGY ORDERABLES Performing Organization Address City/State/[place] [address] (ABNORMAL) Hemogram (05/21/2022 6:15 AM EDT) [facility] gist Method Time Signature WBC 6.8 4.0 - 9.5 [facility] x10(3)/[facility] LABORATORY RBC 3.59 (L) 4.58 - [facility] x10(6)/[facility] LABORATORY Hemoglobin 11.8 (L) 13.7 - [facility] 16.5 g/dL [facility] LABORATORY Hematocrit 34.5 (L) 40.5 - [facility] 48.5 % [facility] LABORATORY MCV 96.1 (H) 82.9 - [facility] 93.1 [facility] LABORATORY MCH 32.9 (H) 27.5 - [facility] XIAO 32.1 pg [facility] LABORATORY MCHC 34.2 32.0 - [facility] 35.7 g/dL [facility] LABORATORY Platelets 198 145 - 357 [facility] x10(3)/[facility] LABORATORY RDWSD 44.9 36.0 - [facility] 45.0 [facility] RDWCV 12.6 11.4 - [facility] 13.8 % [facility] LABORATORY MPV 10.0 7.6 - 12.9 [facility] LABORATORY nRBC % Auto 0.3 % [facility] LABORATORY nRBC Abs Auto 0.020 (H) 0.000 - [facility] 0.000 [facility] x10(3)/[facility] LABORATORY Specimen Anatomical Collection Method Collection Time Receive d Time (Source) Location / / Volume Laterality Blood 05/21/2022 6:15 AM 6:38 EDT AM EDT Resulting Agency Comment Spec In Lab Edward Rodríguez MD HEMATOLOGY ORDERABLES Performing Organization Address City/[facility]/Z[place] [address] EKG 12 Lead (05/20/2022 7:04 PM EDT) Component Value Ref Range Test Analysis Performed Pathologis t Method Time At Signature Ventricular rate 101 BPM MUSE SYSTEM QRS Duration 116 ms MUSE SYSTEM Q-T Interval 378 ms MUSE SYSTEM QTC Calculated 490 ms MUSE SYSTEM (Bezet) Calculated R Brigantine -53 degrees MUSE SYSTEM Calculated T Brigantine 101 degrees MUSE SYSTEM INTERPRETATION Atrial fibrillation [...] Summers MD ECG ORDERABLES Performing Organization Address City/[facility]/ZIP Code Phon e Number MUSE SYSTEM CARDIAC CATHETERIZATION (05/20/2022 6:45 PM EDT) Specimen (Source) Anatomical Location Collection Method / Collectio n Time Received Time / Laterality Volume Narrative CARDIOMAC SYSTEM - 05/20/2022 7:09 PM ED T ?[facility] ? Cardiac Cathete rization/Intervention Report ? Patient Name: Koko Zamora. ? Procedure Date: 05/20/2022 ? A #: [id number] ? Primary Physician: Abundio Servin ? Case #: [id number] ? File Name: [id number] ? Catheterization Order Number: [id number] ? [facility] ? Final Report [place], [place] ? Patient Name: ? Koko Sullivan. Klarissa uson ? ID#: ?[id number] ? : ?1940 ? Procedure Date: ? [...] procedure was Urgent. 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 Chest pain [...] ?3.5 guiding catheter and a 3.5 Fr [facility] [place] [address] ??20 Mhz. ??Imaging ?was successful. ??Image [...] premounted 2. 75 x 30 mm Rudy Spofford (AMPARO) was deployed ? with a maximum [...] may require ?modification of this regimen. C [facility] Interventional Cardiology for ?questions. ?The 1 year [...] 123 65 - 199 [facility] mg/dL [facility] LABORATORY Comment: Supplemental ranges: <140 mg/dL before meals <180 mg/dL all other times of the day Specimen Anatomical Collection Method Collection Time Receive d Time (Source) Location / / Volume Laterality Blood 05/20/2022 5:42 PM 5:42 EDT PM EDT Fito Summers MD POINT OF CARE TEST ORDERABLE S Performing Organization Address City/State/[place] [address] (ABNORMAL) BMP w/fasting Glucose (05/20/2022 10:50 AM EDT) P athologist Signature Glucose 152 (H) 65 - 99 [facility] Fasting mg/dL [facility] LABORATORY Comment: ?Fasting* Glucose Interpretive C riteria [...] of Diabetes Mellitus, Position Statement from the [place] [employer]. ??Diabete s Care, Volume 33, Supplement 1, Nov 2009 BUN 11 10 - 20 mg/dL [facility] LABORATORY Creatinine 0.63 (L) 0.80 - 1.50 mg/dL [facility] LABORATORY Sodium 137 135 - 145 mmol/L [facility] LABORATORY Potassium 3.6 3.5 - 5.0 mmol/L [facility] LABORATORY Comment: Please note: ??Patients with WBC >100,00 0 may have falsely elevated Potassium levels. ??For accurate Potassium quantif ication in these patients send serum separator tube (gold top) for subsequent determinations. ??Contact the Clinical Chemistry Laboratory if there are any qu estions. Chloride 103 98 - 107 mmol/L [facility] LABORATORY CO2 24 22 - 31 mmol/L [facility] Anion Gap 10 5 - 15 mmol/L [facility] LABORATORY Calcium 8.7 8.5 - 10.5 mg/dL [facility] LABORATORY Estimated GFR 97 >=60 mL/min/1.73 m?? [facility] LABORATORY Comment: This patient's estimated GFR [...] Summers MD CHEMISTRY ORDERABLES Performing Organization Address City/[facility]/[place] [address] Heparin (unfractionated) Level (05/20/2022 5:02 AM EDT) P athologist Signature Heparin UFH 0.57 IU/mL [facility] LABORATORY Comment: Heparin (anti-Xa) levels [...] Summers MD HEMATOLOGY ORDERABLES Performing Organization Address City/[facility]/ZIP Code Phon e Number [address] (ABNORMAL) Differential, Automated (05/20/2022 5:02 AM EDT) Patholo gist Method Time Signature Neutrophils % 58.1 % [facility] LABORATORY Neutr Abs (ANC) 4.52 1.70 - [facility] 6.10 [facility] x10(3)/[facility] LABORATORY Lymphocytes % 24.1 % [facility] LABORATORY Lymphocytes Abs 1.9 0.9 - 3.2 [facility] x10(3)/[facility] LABORATORY Monocytes % 13.8 % [facility] LABORATORY Monocyte Abs 1.1 (H) 0.3 - 0.9 [facility] x10(3)/[facility] LABORATORY Eosinophils % 2.6 % [facility] LABORATORY Eosinophils Abs 0.2 0.0 - 0.4 [facility] x10(3)/[facility] LABORATORY Basophils % 0.8 % [facility] LABORATORY Basophils Abs 0.1 0.0 - 0.1 [facility] x10(3)/[facility] LABORATORY Immature Gran % 0.60 % [facility] LABORATORY Comment: Immature granulocytes(IG's)percentage an d absolute count will include metamyelocytes, myelocytes, and promyelo cytes. Blood smears from CBCs yielding IG's will be scanned manually for concor dance. If this scan disagrees with the automated IG or if promyelocytes are not ed, a manual differential will be performed. Rain Gran Abs 0.05 (H) 0.00 - 0.04 x10(3)/[facility] LABORATORY Specimen Anatomical Collection Method Collection Time Receive d Time (Source) Location / / Volume Laterality Blood 05/20/2022 5:02 AM 5:19 EDT AM EDT Resulting Agency Comment Spec In Lab Edward Rodríguez MD HEMATOLOGY ORDERABLES Performing Organization Address City/State/[place] [address] (ABNORMAL) Hemogram (05/20/2022 5:02 AM EDT) Analysis Performed At Patho logist Time Signature WBC 7.8 4.0 - 9.5 [facility] x10(3)/[facility] LABORATORY RBC 3.53 (L) 4.58 - [facility] 5.54 [facility] x10(6)/[facility] LABORATORY Hemoglobin 11.4 (L) 13.7 - [facility] 16.5 g/dL [facility] LABORATORY Hematocrit 34.3 (L) 40.5 - [facility] 48.5 % [facility] LABORATORY MCV 97.2 (H) 82.9 - [facility] 93.1 fL [facility] LABORATORY MCH 32.3 (H) 27.5 - [facility] 32.1 pg [facility] LABORATORY MCHC 33.2 32.0 - [facility] 35.7 g/dL [facility] LABORATORY Platelets 181 145 - 357 [facility] x10(3)/[facility] LABORATORY RDWSD 46.4 (H) 36.0 - [facility] 45.0 [facility] LABORATORY RDWCV 13.0 11.4 - [facility] 13.8 % [facility] LABORATORY MPV 10.4 7.6 - 12.9 [facility] LABORATORY nRBC % Auto 0.0 % [facility] LABORATORY nRBC Abs Auto 0.000 0.000 - [facility] 0.000 [facility] x10(3)/[facility] LABORATORY Specimen Anatomical Collection Method Collection Time Receive d Time (Source) Location / / Volume Laterality Blood 05/20/2022 5:02 AM 2 5:19 EDT AM EDT Resulting Agency Comment Spec In Lab Edward Rodríguez MD HEMATOLOGY ORDERABLES Performing Organization Address City/State/[place] [address] Heparin (unfractionated) Level (05/19/2022 3:26 AM EDT) P athologist Signature Heparin UFH 0.59 IU/mL [facility] LABORATORY Comment: Heparin (anti-Xa) levels [...] Organization Address City/State/[place] [address] (ABNORMAL) Differential, Automated (05/19/2022 3:26 AM EDT) [facility] Method Time Signature Neutrophils % 62.1 % [facility] LABORATORY Neutr Abs (ANC) 4.59 1.70 - [facility] 6.10 [facility] x10(3)/[facility] LABORATORY Lymphocytes % 22.1 % [facility] LABORATORY Lymphocytes Abs 1.6 0.9 - 3.2 [facility] x10(3)/[facility] LABORATORY Monocytes % 13.5 % [facility] LABORATORY Monocyte Abs 1.0 (H) 0.3 - 0.9 [facility] x10(3)/[facility] LABORATORY Eosinophils % 1.3 % [facility] LABORATORY Eosinophils Abs 0.1 0.0 - 0.4 [facility] x10(3)/[facility] LABORATORY Basophils % 0.5 % [facility]ORATORY Basophils Abs 0.0 0.0 - 0.1 [facility] x10(3)/[facility] LABORATORY Immature Gran % 0.50 % [facility] LABORATORY Comment: Immature granulocytes(IG's)percentage an d absolute count will include metamyelocytes, myelocytes, and promyelo cytes. Blood smears from CBCs yielding IG's will be scanned manually for concor dance. If this scan disagrees with the automated IG or if promyelocytes are not ed, a manual differential will be performed. Rain Gran Abs 0.04 0.00 - 0.04 x10(3)/[facility] LABORATORY Specimen Anatomical Collection Method Collection Time Receive d Time (Source) Location / / Volume Laterality Blood 05/19/2022 3:26 AM 3:59 EDT AM EDT Resulting Agency Comment Spec In Lab Edward Rodríguez MD HEMATOLOGY ORDERABLES Performing Organization Address City/[facility]/[place] [address] (ABNORMAL) Hemogram (05/19/2022 3:26 AM EDT) Analysis Performed At Patho logist Time Signature WBC 7.4 4.0 - 9.5 [facility] x[facility](3[facility] LABORATORY RBC 3.74 (L) 4.58 - [facility] 5.54 [facility] x10(6)/[facility] LABORATORY Hemoglobin 12.1 (L) 13.7 - [facility] 16.5 g/dL [facility] LABORATORY Hematocrit 36.4 (L) 40.5 - [facility] 48.5 % [facility] LABORATORY MCV 97.3 (H) 82.9 - [facility] 93.1 [facility] LABORATORY MCH 32.4 (H) 27.5 - [facility] 32.1 pg [facility] LABORATORY MCHC 33.2 32.0 - [facility] 35.7 g/dL [facility] LABORATORY Platelets 168 145 - 357 [facility] x10(3)/[facility] LABORATORY RDWSD 46.9 (H) 36.0 - [facility] 45.0 [facility] LABORATORY RDWCV 13.0 11.4 - [facility] 13.8 % [facility] LABORATORY MPV 10.5 7.6 - 12.9 [facility] LABORATORY nRBC % Auto 0.0 % [facility] LABORATORY nRBC Abs Auto 0.000 0.000 - [facility] 0.000 [facility] x10(3)/[facility] LABORATORY Specimen Anatomical Collection Method Collection Time Receive d Time (Source) Location / / Volume Laterality Blood 05/19/2022 3:26 AM 3:59 EDT AM EDT Resulting Agency Comment Spec In Lab Edward Rodríguez MD HEMATOLOGY ORDERABLES Performing Organization Address City/State/[place] [address] TSH (05/18/2022 8:00 PM EDT) P athologist Signature TSH 2.27 0.27 - 4.20 [facility] mcIU/mL [facility] LABORATORY Comment: Reference Interval (mcIU/mL): Females: ??First Trimester: 0.23-3.88 ??Second Trimester: 0.22-3.90 ??Third Trimester: 0.44-4.66 Specimen Anatomical Collection Method Collection Time Receive d Time (Source) Location / / Volume Laterality Blood 05/18/2022 8:00 PM 8:06 EDT PM EDT Resulting Agency Comment Spec In Lab Fito Summers MD CHEMISTRY ORDERABLES Performing Organization Address City/State/[place] [address] (ABNORMAL) Differential, Automated (05/18/2022 3:34 AM EDT) [facility] gist Method Time Signature Neutrophils % 67.2 % [facility] LABORATORY Neutr Abs (ANC) 5.89 1.70 - [facility] 6.10 [facility] x10(3)/[facility] LABORATORY Lymphocytes % 17.1 % [facility] LABORATORY Lymphocytes Abs 1.5 0.9 - 3.2 [facility] x10(3)/[facility] LABORATORY Monocytes % 13.6 % [facility] LABORATORY Monocyte Abs 1.2 (H) 0.3 - 0.9 [facility] x10(3)/[facility] LABORATORY Eosinophils % 1.0 % [facility] LABORATORY Eosinophils Abs 0.1 0.0 - 0.4 [facility] x10(3)/[facility] LABORATORY Basophils % 0.6 % [facility] LABORATORY Basophils Abs 0.0 0.0 - 0.1 [facility] x10(3)/[facility] LABORATORY Immature Gran % 0.50 % [facility] LABORATORY Comment: Immature granulocytes(IG's)percentage an d absolute count will include metamyelocytes, myelocytes, and promyelo cytes. Blood smears from CBCs yielding IG's will be scanned manually for concor dance. If this scan disagrees with the automated IG or if promyelocytes are not ed, a manual differential will be performed. Rain Gran Abs 0.04 0.00 - 0.04 x10(3)/[facility] LABORATORY Specimen Anatomical Collection Method Collection Time Receive d Time (Source) Location / / Volume Laterality Blood 05/18/2022 3:34 AM 2 3:48 EDT AM EDT Resulting Agency Comment Spec In Lab Edward Rodríguez MD HEMATOLOGY ORDERABLES Performing Organization Address City/State/[place] [address] (ABNORMAL) Hemogram (05/18/2022 3:34 AM EDT) Analysis Performed At Patho logist Time Signature WBC 8.8 4.0 - 9.5 [facility](3[facility] LABORATORY RBC 3.45 (L) 4.58 - [facility] 5.54 [facility] x10(6)/[facility] LABORATORY Hemoglobin 11.2 (L) 13.7 - [facility] 16.5 g/dL [facility] LABORATORY Hematocrit 33.0 (L) 40.5 - [facility] 48.5 % [facility] LABORATORY MCV 95.7 (H) 82.9 - [facility] 93.1 [facility] LABORATORY MCH 32.5 (H) 27.5 - [facility] 32.1 pg [facility] LABORATORY MCHC 33.9 32.0 - [facility] 35.7 g/dL [facility] LABORATORY Platelets 130 (L) 145 - 357 [facility] x10(3)/[facility] LABORATORY RDWSD 46.2 (H) 36.0 - [facility] 45.0 [facility] LABORATORY RDWCV 13.2 11.4 - [facility] 13.8 % [facility] LABORATORY MPV 10.8 7.6 - 12.9 [facility] LABORATORY nRBC % Auto 0.0 % [facility] LABORATORY nRBC Abs Auto 0.000 0.000 - [facility] 0.000 [facility] x10(3)/[facility] LABORATORY Specimen Anatomical Collection Method Collection Time Receive d Time (Source) Location / / Volume Laterality Blood 05/18/2022 3:34 AM 2 3:48 EDT AM EDT Resulting Agency Comment Spec In Lab Edward Rodríguez MD HEMATOLOGY ORDERABLES Performing Organization Address City/State/ZIP Code Ph[place] [address] Heparin (unfractionated) Level (05/18/2022 3:34 AM EDT) athologist [facility] Heparin UFH 0.59 IU/mL [facility] LABORATORY Comment: Heparin (anti-Xa) levels [...] Organization Address City/State/[place] [address] Magnesium (05/17/2022 3:33 AM EDT) athologist [facility] Magnesium 0.76 0.69 - 1.07 [facility] mmol/L [facility] LABORATORY Specimen Anatomical Collection Method Collection Time Receive d Time (Source) Location / / Volume Laterality Blood Venous Draw / 05/17/2022 3:33 AM 05/17/20 4:05 Unknown EDT AM EDT Resulting Agency Comment Spec In Lab Dottie Hill APRN CHEMISTRY ORDERABLES Performing Organization Address City/State/ZIP Code Phon e Number [address] (ABNORMAL) Basic Metabolic Panel (non-fasting) (05/17/2022 3:33 AM EDT) athologist [facility] Glucose Lvl 158 65 - 199 [facility] mg/dL [facility] LABORATORY Comment: Diabetes: >=200 mg/dL plus symp toms BUN 12 10 - 20 mg/dL [facility] LABORATORY Creatinine 0.74 (L) 0.80 - 1.50 mg/dL [facility] LABORATORY Sodium 137 135 - 145 mmol/L [facility] LABORATORY Potassium 3.5 3.5 - 5.0 mmol/L [facility] LABORATORY Comment: Please note: ??Patients with WBC >100,00 0 may have falsely elevated Potassium levels. ??For accurate Potassium quantif ication in these patients send serum separator tube (gold top) for subsequent determinations. ??Contact the Clinical Chemistry Laboratory if there are any qu estions. Chloride 102 98 - 107 mmol/L [facility] LABORATORY CO2 25 22 - 31 mmol/L [facility] Anion Gap 10 5 - 15 mmol/L [facility] LABORATORY Calcium 8.4 (L) 8.5 - 10.5 mg/dL [facility] LABORATORY Estimated GFR 92 >=60 mL/min/1.73 m?? [facility] LABORAT[facility] Comment: This patient's estimated GFR [...] Organization Address City/State/[place] [address] (ABNORMAL) Differential, Automated (05/17/2022 3:33 AM EDT) [facility] gist Method Time Signature Neutrophils % 65.5 % [facility] LABORATORY Neutr Abs (ANC) 6.84 (H) 1.70 - [facility] 6.10 [facility] x10(3)/[facility] LABORATORY Lymphocytes % 19.7 % [facility] LABORATORY Lymphocytes Abs 2.1 0.9 - 3.2 [facility] x10(3)/[facility] LABORATORY Monocytes % 13.1 % [facility] LABORATORY Monocyte Abs 1.4 (H) 0.3 - 0.9 [facility] x10(3)/[facility] LABORATORY Eosinophils % 0.6 % [facility]ORAT[facility] Eosinophils Abs 0.1 0.0 - 0.4 [facility] x10(3)/[facility] LABORATORY Basophils % 0.6 % [facility] LABORATORY Basophils Abs 0.1 0.0 - 0.1 [facility] x10(3)/[facility] LABORATORY Immature Gran % 0.50 % [facility] LABORATORY Comment: Immature granulocytes(IG's)percentage an d absolute count will include metamyelocytes, myelocytes, and promyelo cytes. Blood smears from CBCs yielding IG's will be scanned manually for concor dance. If this scan disagrees with the automated IG or if promyelocytes are not ed, a manual differential will be performed. Rain Gran Abs 0.05 (H) 0.00 - 0.04 x10(3)/[facility] LABORATORY Specimen Anatomical Collection Method Collection Time Receive d Time (Source) Location / / Volume Laterality Blood 05/17/2022 3:33 AM 3:53 EDT AM EDT Resulting Agency Comment Spec In Lab Edward Rodríguez MD HEMATOLOGY ORDERABLES Performing Organization Address City/State/ZIP Code Phon e Number [address] (ABNORMAL) Hemogram (05/17/2022 3:33 AM EDT) Analysis Performed At Patho logist Time Signature WBC 10.4 (H) 4.0 - 9.5 [facility] x10(3)/[facility] LABORATORY RBC 3.72 (L) 4.58 - [facility] x10(6)/[facility] LABORATORY Hemoglobin 12.0 (L) 13.7 - [facility] 16.5 g/dL [facility] LABORATORY Hematocrit 36.4 (L) 40.5 - [facility] 48.5 % [facility] LABORATORY MCV 97.8 (H) 82.9 - [facility]1 [facility] LABORATORY MCH 32.3 (H) 27.5 - [facility] 32.1 pg [facility] LABORATORY MCHC 33.0 32.0 - [facility] 35[facility] g/dL [facility] LABORATORY Platelets 149 145 - 357 [facility] x10(3)/[facility] LABORATORY RDWSD 48.7 (H) 36.0 - [facility] 45.0 [facility] LABORATORY RDWCV 13.5 11.4 - [facility] 13.8 % [facility] LABORATORY MPV 10.6 7.6 - 12.9 [facility] LABORATORY nRBC % Auto 0.0 % [facility] LABORATORY nRBC Abs Auto 0.000 0.000 - [facility] 0.000 [facility] x10(3)/[facility] LABORATORY Specimen Anatomical Collection Method Collection Time Receive d Time (Source) Location / / Volume Laterality Blood 05/17/2022 3:33 AM 3:53 EDT AM EDT Resulting Agency Comment Spec In Lab Edward Rodríguez MD HEMATOLOGY ORDERABLES Performing Organization Address City/State/[place] [address] (ABNORMAL) Urinalysis Microscopic Exam (05/16/2022 11:15 PM EDT) P athologist Signature RBC UA 8 (H) 0 - 3 /HPF [facility] LABORATORY WBC UA 2 0 - 3 /HPF [facility] LABORATORY Specimen Anatomical Collection Method Collection Time Receive d Time (Source) Location / / Volume Laterality Clean Catch 05/16/2022 11:15 05/16/2022 Urine PM EDT 11:30 PM EDT Resulting Agency Comment Spec In Lab Barbie Ashraf MD URINE ORDERABLES Performing Organization Address City/[facility]/ZIP Code Phon e Number [place] [phone] HOSP[address] LAB[address]ATORY Drive (ABNORMAL) Urinalysis with reflex Culture (05/16/2022 11:15 PM EDT) [facility] gist Method Time Signature Glucose UA Negative Negative [facility] mg/dL [facility] LABORATORY Protein UA Negative Negative [facility] mg/dL [facility] LABORATORY Bilirubin UA Negative Negative [facility] mg/dL [facility] LABORATORY Comment: Clinical correlation required for positi ve Urine Bilirubin results as false positive may occur with some drugs and d rug related products. If a false positive is suspected a serum total bili quarles should be considered if clinically indicated. Urobilinogen UA Normal Normal mg/dL [facility] LABORATORY pH UA 6.0 5.0 - 8.0 [facility] LABORATORY Blood UA Small (A) Negative mg/dL [facility] LABORATORY Ketones UA Trace (A) Negative mg/dL [facility] LABORATORY Nitrite UA Negative Negative [facility] LABORATORY Leukocytes UA Negative Negative mcL [facility] LABORATORY Appearance UA Clear Clear [facility] LABORATORY Spec [place] UA 1.021 1.005 - 1.030 [facility] LABORATORY Color UA Yellow Yellow [facility] LABORATORY Culture Reflexed No [facility] LABORATORY Specimen Anatomical Collection Method Collection Time Receive d Time (Source) Location / / Volume Laterality Clean Catch 05/16/2022 11:15 05/16/2022 Urine PM EDT 11:30 PM EDT Resulting Agency Comment Spec In Lab Fito Summers MD URINE ORDERABLES Performing Organization Address City/State/ZIP Code Phon e Number [place] [phone] [address]OSP[address] LAB[address]ORY Drive Heparin (unfractionated) Level (05/16/2022 10:59 PM EDT) athologist Signature Heparin UFH 0.65 IU/mL [facility] LABORATORY Comment: Specimen drawn more than one [...] Organization Address City/State/[place] [address] XR Chest One View [...] questions please contact the health patient care technician instructor that requested your imaging first. ? Narrative [...] questions please contact the health patient care technician instructor that requested your imaging first. Fito Summers MD IMG DX ORDERABLES EKG 12 Lead (05/16/2022 8:57 PM EDT) Component Value Ref Range Test Analysis Performed Pathologis t Method Time At Signature Ventricular rate 117 BPM MUSE SYSTEM QRS Duration 112 ms MUSE SYSTEM Q-T Interval 346 ms MUSE SYSTEM QTC Calculated 482 ms MUSE SYSTEM (Bezet) Calculated R Brigantine -48 degrees MUSE SYSTEM Calculated T Brigantine 111 degrees MUSE SYSTEM INTERPRETATION Atrial fibrillation with rapid ventricular response MUSE SYSTEM Left anterior fascicular block Minimal voltage criteria for LVH, may be normal variant ( [place] product ) Nonspecific ST and T wave [...] EDT) athologist Signature Heparin UFH 0.53 IU/mL [facility] LABORATORY Comment: Heparin (anti-Xa) levels [...] Summers MD HEMATOLOGY ORDERABLES Performing Organization Address City/[facility]/[place] [address] ECHOCARDIOGRAM COMPLETE W CONTRAST (05/16/2022 12:49 PM EDT) athologist Signature EF 28 [facility] Specimen (Source) Anatomical Collection Method Collection Time Re ceived Time Location / / Volume Laterality 05/16/2022 11:22 AM EDT Narrative HEART[facility] SYSTEM - 05/16/2022 1:54 PM EDT [facility] ?[address] ? [place] [address] ?Voice: ?Fax: ? Echocardiogram Report Name: KOKO ZAMORA ?Study Date: 05/16/2022 11:22 AM ? Patient Location: [facility] 0303 B : 1940 ? Height: 67.5 in ? Account: [id number] Age: 81 yrs ? Weight: 176 lb Gender: Male ?BSA: 1.9 m2 Ordering Physician: FITO SUMMERS Referring Physician: MALI FLORIAN Performed By: Jolene Bernard RDCS Exam Location: [facility]. Interpretation Summary Left ventricle is mildly [...] and LV systolic dysfunction are new. Procedure Complete-[id number]. Image enhancement Optiso n was used for [...] note might be different from the original. [address] [place] [address] Voice: Fax: Echocardiogram Report Name: KOKO ZAMORA Study Date: 05/2022 11:22 AM Patient Location: [address] [place] [address] : 1940 Height: 67.5 in Account: [id number] Age: 81 yrs Weight: 176 lb Gender: Male BSA: 1.9 m2 Ordering Physician: FITO SMUMERS Referring Physician: MALI FLORIAN Performed By: Jolene Bernard RDCS Exam Location: [facility]. Interpretation Summary Left ventricle is mildly [...] and LV systolic dysfunction are new. Procedure Complete-[id number]. Image enhancement Optiso n was used for [...] (ABNORMAL) Differential, Automated (05/16/2022 3:01 AM EDT) [facility] Method Time Signature Neutrophils % 78.8 % [facility] LABORATORY Neutr Abs (ANC) 9.11 (H) 1.70 - [facility] 6.10 [facility] x10(3)/[facility] L LABORATORY Lymphocytes % 9.4 % [facility] LABORATORY Lymphocytes Abs 1.1 0.9 - 3.2 [facility] x10(3)/[facility] LABORATORY Monocytes % 10.9 % [facility] LABORATORY Monocyte Abs 1.3 (H) 0.3 - 0.9 [facility] x10(3)/[facility] LABORATORY Eosinophils % 0.0 % [facility] LABORATORY Eosinophils Abs 0.0 0.0 - 0.4 [facility] x10(3)/[facility] LABORATORY Basophils % 0.3 % [facility] LABORATORY Basophils Abs 0.0 0.0 - 0.1 [facility] x10(3)/[facility] LABORATORY Immature Gran % 0.60 % [facility] LABORATORY Comment: Immature granulocytes(IG's)percentage an d absolute count will include metamyelocytes, myelocytes, and promyelo cytes. Blood smears from CBCs yielding IG's will be scanned manually for concor dance. If this scan disagrees with the automated IG or if promyelocytes are not ed, a manual differential will be performed. Rain Gran Abs 0.07 (H) 0.00 - 0.04 x10(3)/[facility] LABORATORY Specimen Anatomical Collection Method Collection Time Receive d Time (Source) Location / / Volume Laterality Blood 05/16/2022 3:01 AM 2 3:36 EDT AM EDT Resulting Agency Comment Spec In Lab Erin Garza MD HEMATOLOGY ORDERABLES Performing Organization Address City/State/Z[place] [address] (ABNORMAL) Hemogram (05/16/2022 3:01 AM EDT) Analysis Performed At Patho logist Time Signature WBC 11.6 (H) 4.0 - 9.5 [facility] x10(3)/[facility] LABORATORY RBC 3.62 (L) 4.58 - [facility] 5.54 [facility] x10(6)/[facility] LABORATORY Hemoglobin 12.0 (L) 13.7 - [facility] 16.5 g/dL [facility] LABORATORY Hematocrit 35.3 (L) 40.5 - [facility] 48.5 % [facility] LABORATORY MCV 97.5 (H) 82.9 - [facility] 93.1 fL [facility] LABORATORY MCH 33.1 (H) 27.5 - [facility] 32.1 pg [facility] LABORATORY MCHC 34.0 32.0 - [facility] 35.7 g/dL [facility] LABORATORY Platelets 151 145 - 357 [facility] x10(3)/[facility] LABORATORY RDWSD 47.6 (H) 36.0 - [facility] 45.0 [facility] LABORATORY RDWCV 13.3 11.4 - [facility] 13.8 % [facility] LABORATORY MPV 10.5 7.6 - 12.9 [facility] XIAO [facility] LABORATORY nRBC % Auto 0.0 % [facility] LABORATORY nRBC Abs Auto 0.000 0.000 - [facility] 0.000 [facility] x10(3)/[facility] LABORATORY Specimen Anatomical Collection Method Collection Time Receive d Time (Source) Location / / Volume Laterality Blood 05/16/2022 3:01 AM 2 3:36 EDT AM EDT Resulting Agency Comment Spec In Lab Erin Garza MD HEMATOLOGY ORDERABLES Performing Organization Address City/[facility]/ZIP [facility] Phon e Number [address] Phosphorus (05/16/2022 3:01 AM EDT) P athologist Signature Phosphorus 3.7 2.5 - 4.5 [facility] mg/dL [facility] LABORATORY Specimen Anatomical Collection Method Collection Time Receive d Time (Source) Location / / Volume Laterality Blood 05/16/2022 3:01 AM 2 3:36 EDT AM EDT Resulting Agency Comment Spec In Lab Fito Summers MD CHEMISTRY ORDERABLES Performing Organization Address City/[facility]/ZIP Code Phon e Number [address] Magnesium (05/16/2022 3:01 AM EDT) P athologist Signature Magnesium 0.77 0.69 - 1.07 [facility] mmol/L [facility] LABORATORY Specimen Anatomical Collection Method Collection Time Receive d Time (Source) Location / / Volume Laterality Blood 05/16/2022 3:01 AM 2 3:36 EDT AM EDT Resulting Agency Comment Spec In Lab Fito Summers MD CHEMISTRY ORDERABLES Performing Organization Address City/State/Z[place] [address] (ABNORMAL) Basic Metabolic Panel (non-fasting) (05/16/2022 3:01 AM EDT) P athologist Signature Glucose Lvl 222 (H) 65 - 199 [facility] mg/dL [facility] LABORATORY Comment: Diabetes: >=200 mg/dL plus symp toms BUN 12 10 - 20 mg/dL [facility] LABORATORY Creatinine 0.66 (L) 0.80 - 1.50 mg/dL [facility] LABORATORY Sodium 138 135 - 145 mmol/L [facility] LABORATORY Potassium 4.5 3.5 - 5.0 mmol/L [facility] LABORATORY Comment: Please note: ??Patients with WBC >100,00 0 may have falsely elevated Potassium levels. ??For accurate Potassium quantif ication in these patients send serum separator tube (gold top) for subsequent determinations. ??Contact the Clinical Chemistry Laboratory if there are any qu estions. Chloride 108 (H) 98 - 107 mmol/L [facility] LABORATORY CO2 22 22 - 31 mmol/L [facility] LABORATORY Anion Gap 8 5 - 15 mmol/L [facility] LABORATORY Calcium 8.2 (L) 8.5 - 10.5 mg/dL [facility] LABORATORY Estimated GFR 95 >=60 mL/min/1.73 m?? [facility] LABORATORY Comment: This patient's estimated GFR [...] Organization Address City/State/[place] [address] (ABNORMAL) BLOOD GAS 2 ARTERIAL (05/15/2022 3:33 PM EDT) Analysis Performed At Patho logist Time Signature pH Art 7.33 (L) 7.35 - [facility] 7.45 [facility] LABORATORY pCO2 Art 41 35 - 45 [facility] mmHg [facility] LABORATORY pO2 Art 131 (H) 85 - 104 [facility] LABORATORY HCO3 Art 21.1 20.0 - [facility] 26.0 [facility] BE Art -4.8 (L) -3.0 - 3.0 [facility] mmol/L [facility] LABORATORY Hgb Blood Gas 13.4 (L) 13.7 - [facility] 16.5 g/dL [facility] LABORATORY O2HB Art 96.9 94.0 - [facility] 97.0 % [facility] LABORATORY COHB Art 1.4 % [facility] LABORATORY Comment: Nonsmokers: 0.5-1.5% COHB Smokers: Variable, but usually less than 10% Toxic: 20-30% COHB Lethal: Greater than 60% COHB METHB Art 0.3 <=1.5 % [facility] LABORATORY Na Whole Blood 139 135 - 145 mmol/L [facility] LABORATORY K Whole Blood 3.8 3.5 - 5.0 mmol/L [facility] LABORATORY Comment: Please note: Patients with WBC >100,000 may have falsely elevated Potassium levels. Contact the Clinical Chemistry L aboratory if there are any questions. ICa Whole Blood 1.32 1.15 - 1.33 mmol/L [facility] LABORATORY Comment: Note: ??Total bilirubin higher than 20 m g/dL may lead to falsely low ionized calcium. CL Whole Blood 113 (H) 98 - 107 mmol/L [facility] LABORATORY Gluc Whole Bld 136 65 - 199 mg/dL [facility] LABORATORY Comment: Diabetes: >=200 mg/dL plus symp toms. Lactate WB 2.0 0.5 - 2.2 mmol/L [facility] LABORATORY Specimen Anatomical Collection Method Collection Time Receive d Time (Source) Location / / Volume Laterality Blood 05/15/2022 3:33 PM 3:[address] Jamel Torre MD CHEMISTRY ORDERABLES Performing Organization Address City/State/Z[place] [address] (ABNORMAL) BLOOD GAS 2 ARTERIAL (05/15/2022 2:06 PM EDT) Analysis Performed At Patho logist Time Signature pH Art 7.39 7.35 - [facility] 7.45 [facility] LABORATORY pCO2 Art 35 35 - 45 [facility] LABORATORY pO2 Art 135 (H) 85 - 104 [facility] LABORATORY HCO3 Art 20.8 20.0 - [facility] 26.0 [facility] mmol/L [facility] LABORATORY BE Art -4.2 (L) -3.0 - 3.0 [facility] mmol/L [facility] LABORATORY Hgb Blood Gas 14.5 13.7 - [facility] 16.5 g/dL [facility] LABORATORY O2HB Art 97.2 (H) 94.0 - [facility] 97.0 % [facility] LABORATORY COHB Art 1.2 % [facility] LABORATORY Comment: Nonsmokers: 0.5-1.5% COHB Smokers: Variable, but usually less than 10% Toxic: 20-30% COHB Lethal: Greater than 60% COHB METHB Art 0.3 <=1.5 % [facility] LABORATORY Na Whole Blood 140 135 - 145 mmol/L [facility] LABORATORY K Whole Blood 3.8 3.5 - 5.0 mmol/L [facility] LABORATORY Comment: Please note: Patients with WBC >100,000 may have falsely elevated Potassium levels. Contact the Clinical Chemistry L aboratory if there are any questions. ICa Whole Blood 1.12 (L) 1.15 - 1.33 mmol/L [facility] LABORATORY Comment: Note: ??Total bilirubin higher than 20 m g/dL may lead to falsely low ionized calcium. CL Whole Blood 109 (H) 98 - 107 mmol/L [facility] LABORATORY Gluc Whole Bld 152 65 - 199 mg/dL [facility] LABORATORY Comment: Diabetes: >=200 mg/dL plus symp toms. Lactate WB 1.5 0.5 - 2.2 mmol/L [facility] LABORATORY Specimen Anatomical Collection Method Collection Time Receive d Time (Source) Location / / Volume Laterality Blood 05/15/2022 2:06 PM 2:[address] Jamel Torre MD CHEMISTRY ORDERABLES Performing Organization Address City/[facility]/[place] [address] (ABNORMAL) Prothrombin Time (05/15/2022 12:30 PM EDT) P athologist Signature PT 12.9 (H) 9.4 - 12.5 [facility] LABORATORY INR 1.1 [facility] LABORATORY Comment: An INR <2.0 indicates [...] Morales DO HEMATOLOGY ORDERABLES Performing Organization Address City/[facility]/[place] [address] (ABNORMAL) APTT (05/15/2022 12:30 PM EDT) P athologist Signature PTT 76 (H) 25 - 37 sec [facility] LABORATORY Comment: The PTT is NOT [...] Morales DO HEMATOLOGY ORDERABLES Performing Organization Address City/[facility]/ZIP Code Phon e Number [address] Gold Tube HOLD (05/15/2022 12:20 PM EDT) P athologist Signature Gold Hold Sample in [facility]. [facility] LABORATORY Specimen Anatomical Collection Method Collection Time Receive d Time (Source) Location / / Volume Laterality Blood No Charge / 05/15/2022 12:20 05/15/2022 Unknown PM EDT 12:20 PM EDT Lc TRIPP CHEMISTRY ORDERABLES Performing Organization Address City/[facility]/ZIP Code Phon e Number [address] Type and Screen Validity (05/15/2022 12:00 PM EDT) [facility] Method Time Signature T&S only valid [facility] LABORATORY Comment: This Type and Screen result is only valid at the [facility] Specimen Anatomical Collection Method Collection Time Receive d Time (Source) Location / / Volume Laterality Blood 05/15/2022 12:00 05/15/2022 PM EDT 12:17 PM EDT Resulting Agency Comment Spec In Lab Lc TRIPP BLOOD BANK ORDERABLES Performing Organization Address City/[facility]/ZIP Code Phon e Number [address] ABORH Recheck Status (05/15/2022 12:00 PM EDT) [facility] Method Time Signature ABORH Recheck Order Placed [facility] LABORATORY ABORH Type Complete [facility] LABORATORY Specimen Anatomical Collection Method Collection Time Receive d Time (Source) Location / / Volume Laterality Blood 05/15/2022 12:00 05/15/2022 PM EDT 12:17 PM EDT Resulting Agency Comment Spec In Lab Lc TRIPP BLOOD BANK ORDERABLES Performing Organization Address City/[facility]/[place] [address] CK (05/15/2022 12:00 PM EDT) P athologist Signature CK, Total 87 0 - 200 [facility] unit/L [facility] LABORATORY Specimen Anatomical Collection Method Collection Time Receive d Time (Source) Location / / Volume Laterality Blood Venous Draw / 05/15/2022 12:00 05/15/2022 Unknown PM EDT 12:19 PM EDT Resulting Agency Comment Spec In Lab Fito Summers MD CHEMISTRY ORDERABLES Performing Organization Address City/[facility] [place] [address] Antibody screen (05/15/2022 12:00 PM EDT) [facility] Method Time Signature Ab Screen Negative [facility] LABORATORY Expires at 05/18/2022 [facility] [id number] on: [facility] LABORATORY Specimen Anatomical Collection Method Collection Time Receive d Time (Source) Location / / Volume Laterality Blood 05/15/2022 12:00 05/15/2022 PM EDT 12:17 PM EDT Resulting Agency Comment Spec In Lab Lc TRIPP BLOOD BANK ORDERABLES Performing Organization Address City/[facility]/[place] [address] ABO/Rh Typing (05/15/2022 12:00 PM EDT) P athologist Signature ABORh Type O Pos [facility] LABORATORY Specimen Anatomical Collection Method Collection Time Receive d Time (Source) Location / / Volume Laterality Blood 05/15/2022 12:00 05/15/2022 PM EDT 12:17 PM EDT Resulting Agency Comment Spec In Lab Lc TRIPP BLOOD BANK ORDERABLES Performing Organization Address City/[facility]/[place] [address] (ABNORMAL) Differential, Automated (05/15/2022 12:00 PM EDT) [facility] Method Time Signature Neutrophils % 79.4 % [facility] LABORATORY Neutr Abs (ANC) 7.49 (H) 1.70 - [facility] 6.10 [facility] x10(3)/[facility] LABORATORY Lymphocytes % 11.3 % [facility] LABORATORY Lymphocytes Abs 1.1 0.9 - 3.2 [facility] x10(3)/[facility] LABORATORY Monocytes % 7.8 % [facility] LABORATORY Monocyte Abs 0.7 0.3 - 0.9 [facility] x10(3)/[facility] LABORATORY Eosinophils % 0.6 % [facility] LABORATORY Eosinophils Abs 0.1 0.0 - 0.4 [facility] x10(3)/[facility] LABORATORY Basophils % 0.6 % [facility] LABORATORY Basophils Abs 0.1 0.0 - 0.1 [facility] x10(3)/[facility] LABORATORY Immature Gran % 0.30 % [facility] LABORATORY Comment: Immature granulocytes(IG's)percentage an d absolute count will include metamyelocytes, myelocytes, and promyelo cytes. Blood smears from CBCs yielding IG's will be scanned manually for concor dance. If this scan disagrees with the automated IG or if promyelocytes are not ed, a manual differential will be performed. Rain Gran Abs 0.03 0.00 - 0.04 x10(3)/[facility] LABORATORY Specimen Anatomical Collection Method Collection Time Receive d Time (Source) Location / / Volume Laterality Blood 05/15/2022 12:00 05/15/2022 PM EDT 12:19 PM EDT Resulting Agency Comment Spec In Lab Lc TRIPP HEMATOLOGY ORDERABLES Performing Organization Address City/State/[place] [address] (ABNORMAL) Hemogram (05/15/2022 12:00 PM EDT) Analysis Performed At Patho logist Time Signature WBC 9.4 4.0 - 9.5 [facility] x10(3)/[facility] LABORATORY RBC 4.48 (L) 4.58 - [facility] 5.54 [facility] x10(6)/[facility] LABORATORY Hemoglobin 14.5 13.7 - [facility] 16.5 g/dL [facility] LABORATORY Hematocrit 42.4 40.5 - [facility] 48.5 % [facility] LABORATORY MCV 94.6 (H) 82.9 - [facility] 93.1 [facility] LABORATORY MCH 32.4 (H) 27.5 - [facility] 32.1 pg [facility] LABORATORY MCHC 34.2 32.0 - [facility] 35.7 g/dL [facility] LABORATORY Platelets 209 145 - 357 [facility] x10(3)/[facility] LABORATORY RDWSD 45.9 (H) 36.0 - [facility] 45.0 [facility] LABORATORY RDWCV 13.1 11.4 - [facility] 13.8 % [facility] LABORATORY MPV 10.5 7.6 - 12.9 [facility] LABORATORY nRBC % Auto 0.0 % [facility] LABORATORY nRBC Abs Auto 0.000 0.000 - [facility] 0.000 [facility] x10(3)/[facility] LABORATORY Specimen Anatomical Collection Method Collection Time Receive d Time (Source) Location / / Volume Laterality Blood 05/15/2022 12:00 05/15/2022 PM EDT 12:19 PM EDT Resulting Agency Comment Spec In Lab Lc TRIPP HEMATOLOGY ORDERABLES Performing Organization Address City/State/[place] [address] (ABNORMAL) Basic Metabolic Panel (non-fasting) (05/15/2022 12:00 PM EDT) P athologist Signature Glucose Lvl 203 (H) 65 - 199 [facility] mg/dL [facility] LABORATORY Comment: Diabetes: >=200 mg/dL plus symp toms BUN 16 10 - 20 mg/dL [facility] LABORATORY Creatinine 0.84 0.80 - 1.50 mg/dL [facility] LABORATORY Sodium 141 135 - 145 mmol/L [facility] [facility] Potassium 4.7 3.5 - 5.0 mmol/L [facility] Comment: Please note: ??Patients with WBC >100,00 0 may have falsely elevated Potassium levels. ??For accurate Potassium quantif ication in these patients send serum separator tube (gold top) for subsequent determinations. ??Contact the Clinical Chemistry Laboratory if there are any qu estions. Chloride 107 98 - 107 mmol/L [facility] CO2 23 22 - 31 mmol/L [facility] Anion Gap 11 5 - 15 mmol/L [facility] Calcium 8.5 8.5 - 10.5 mg/dL [facility] Estimated GFR 89 >=60 mL/min/1.73 m?? [facility] Comment: This patient's estimated GFR [...] Organization Address City/State/[place] [address] documented in this encounter [...] mg = 1.8 mg/kg/dose ? 67.7 kg [place] weight), Intravenous, at 11.3 mL/hr, EVERY 3 [...] mg = 2.4 mg/kg/dose ? 67.7 kg [place] weight), Intravenous, at 15 mL/hr, ONCE, 1 [...] mg = 0.24 mg/kg/dose ? 67.7 kg [place] weight), Oral, 2 TIMES DAILY, 2 doses, [...] mg = 0.48 mg/kg/dose ? 67.7 kg [place] weight), Oral, 2 TIMES DAILY, 2 doses, [...] mg = 0.12 mg/kg/dose ? 67.7 kg [place] weight), Oral, 2 TIMES DAILY, 2 doses, [...] Oral, 2 TIMES DAILY, First dose on [facility] 05/18/22 at 2100, Until Discontinued, Routine Given [...] - Reason: Transfer to a Procedural area)1955 ([facility] - Provider: Admin Adt) 15 (Given - Provider: Etta contreras, RN) 1,000 mcg, Oral, DAILY, First dose on 05/16/22 at 0900, Until Discontinued, Routine metoprolol tartrate (Lopressor) tablet 12.5 mg (CANCEL ED) 0838 (Given - Provider: Caroline Zamora, RN)2008 (Given - Provider: uNris Lester RN) 0853 (Given - Provider: Barbie Joyce RN)1750 ([facility] Hold - Provider: Admin Adt - Reason: Transfer to a Procedural area)1955 ([facility] [place] - Provider: Admin [...] 0852 (Given - Provider: Barbie Joyce RN)1750 ([facility] Hold - Provider: Admin Adt - Reason: Transfer to a Procedural area)1955 ([facility] [place] - Provider: Admin [...] - Reason: Transfer to a Procedural area)1955 ([facility] [place] - Provider: Admin Adt) 0817 (Given [...] - Reason: Transfer to a Procedural area)1955 ([facility] [place] - Provider: Admin [...] (New Bag - Provider: Barbie Joyce RN)1750 ([facility] Hold - Provider: Admin Adt - Reason: Transfer to a Procedural area)1955 ([facility] [place] - Provider: Admin Adt) 021 (Restarted [...] Admin Adt) 0-8,000 Units, Intravenous, BOLUS PER [facility] PROTOCOL, Starting on Fri05/16/22 at 0758, Until [...]
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
--- OUTSIDE RECORDS SUMMARY | 2022-06-23 03:49 | XMS_ITS | Encounter Summary ---
:1940 Author Organization [facility] [place] [address] Care Team Providers Name Role Phone Bobby aDs MD Primary Care Provider Reason for Visit Reason Comments Dizziness Auth/Cert Specialty Diagnoses / Procedures Referred By Contact Refer red To Contact Diagnoses GIB (gastrointestinal bleeding) Abe [facility] [place] [address] Referral ID Status Reason Start Date Expiration Date Visits Requ ested Visits Authorized [id number] 1 1 Encounter Details Date Type Department Care Team Description 05/31/2022 Surgery Gastroenterology at [facility] Giovani Ponce, EGD, UPPER GI [facility] Bobby gilliland [place] [address] [facility] [phone] [place] [address] Social History Tobacco Use Types Packs/Day [...] switching to a different bloodthinner with the aircraft assembler outpatient. Call your doctor or seek medical [...] switchingto a different blood thinner with your aircraft assembler as an outpatient Stopped Medications - Aspirin - Valsartan - Speak with your aircraft assembler about the timing of restarting this Follow-up Appointments Future Appointments Date Time Provider Department Center 06/10/2022 11:00 AM Loretta Cohen MD [facility] 06/13/2022 7:30 AM dEson [place] [facility] VAS LAB [facility] 06/13/2022 8:00 AM Fito Summers MD [facility] V SURG [facility] 06/13/2022 10:00 AM Alan Reid MD [facility] CARD [address] [place] [address] Your Inpatient Medical Team at [facility] Name(s) of your inpatient provider(s): Dr. John Ames For questions regarding issues relating to your hospitalization on the Hospital Medicine Service, please contact your inpatient physician through the [facility] Riding Teacher [phone]. Issues after hours and on weekends will be handled by the Hospitalist staff on-call. Your Primary Care Provider Bobby Das MD [phone] Future Appointments and Orders Future Appointments and Orders Future Appointments Provider Department Dept Phone 06/10/2022 11:00 AM Loretta Cohen MD Dermatology at [facility] Arrive at: [employer] [address] [place] [phone] 06/13/2022 7:30 AM Edson [place] Vascular Lab at [facility] Arrive at: [employer] [facility] 06/13/2022 8:00 AM Fito Summers MD Vascular Surgery at [facility] Arrive at: [employer] [facility] 06/13/2022 10:00 AM Alan Reid MD Cardiology at [facility] Arrive at: [employer] [facility] 4A [phone] For questions regarding this document or issues relating to this hospitalization on the Medical Service, please contact your inpatient physician through the [facility] Riding Teacher . Issues after hours and on weekends [...] switching to a different bloodthinner with the aircraft assembler outpatient. Call your doctor or seek medical [...] switchingto a different blood thinner with your aircraft assembler as an outpatient Stopped Medications - Aspirin - Valsartan - Speak with your aircraft assembler about the timing of restarting this Follow-up Appointments Future Appointments Date Time Provider Department Center 06/10/2022 11:00 AM Loretta Cohen MD [facility] 06/13/2022 7:30 AM Edson [place] [facility] VAS LAB [facility] 06/13/2022 8:00 AM Fito Summers MD [facility] V SURG [facility] 06/13/2022 10:00 AM Alan Reid MD [facility] CARD 4A [facility] Your Inpatient Medical Team at [facility] Name(s) of your inpatient provider(s): Dr. John Ames For questions regarding issues relating to your hospitalization on the Hospital Medicine Service, please contact your inpatient physician through the [facility] Riding Teacher [phone]. Issues after hours and on weekends will be handled by the Hospitalist staff on-call. Your Primary Care Provider Bobby Das MD [phone] documented in this encounter Medications at Time [...] 04/12/20 21 (FLONASE) 50 mcg/actuation Nare route [place], Suspension daily as needed. fluorouraciL (EFUDEX) 5 [...] spent >30 minutes (Day of Discharge Code 41865) involved in the final examination of the [...] from the original note were not included. [facility] Medicine Progress Note [place] Team - Pager #[phone] Admit Date: 05/31/2022 Name: Koko Zamora : [...] cardiology to discuss antiplatelet (ISO bleed and assisted), following. ?? #CAD s/p stenting recently #HFrEF [...] Kurt Ames MD Internal Medicine, PGY-1 Medicine [place] Team #[id number] Associated attestation - John Jolley MD - [...] from the original note were not included. [facility] Medicine (#[id number]) History and Physical Patient info: Name: Koko Zamora : 1940 PCP: Bobby Das MD PCP phone number: [phone] Date of Admission: 05/31/2022 ( Hospital Day [...] IR Biopsy Spine 07/20/2019 Bobby Marshall MD [facility] INTERVENTIONL RAD ??? IR VERTEBROPLASTY LUMBAR MULTIPLE LEVELS 07/20/2019 IR Vertebroplasty Lumbar Multiple Levels 07/20/2019 Bobby Marshall MD [facility] INTER[facility] RAD ??? IR VERTEBROPLASTY THORACIC SINGLE LEVEL 10/25/2020 IR Vertebroplasty Thoracic Single Level 10/25/2020 Matt Chisholm MD [facility] INTERVENTIONL RAD ??? PRO EMBLC/THRMBC FEMORAL POPLITEAL AORTO-ILIAC ARTERY Left 05/15/2022 EMBOLECTOMY OR THROMBECTOMY, FEMOROPOPLITEAL, AORTOILIAC ARTERY BY LEG INCISION (WRVU 19.48) performed by Fito Summers MD at [facility] MAIN OR No family history on file. [...] 11 ??? fluticasone propionate (FLONASE) 50 mcg/actuation [place], Suspension as needed. ??? fluorouraciL (EFUDEX) 5 [...] Gas) No results found for: PHART, PO2ART, BTF6PJN, WTJ9QJN Microbiology: N/A Pertinent radiology/diagnostic studies: Recent prior [...] Valle MD, PGY-3 05/31/2022 Hospital Medicine # [id number] Attending Staff Admission Documentation I have examined [...] documented in this encounter ED Notes Karlos Still, RN - 05/31/2022 3:58 PM EDT [...] AM EDT Pt brought to XR by director radiation oncology Brittany Ramirez MD - 05/31/2022 10:40 AM [...] have questions please contact the health child day care provider that requested your imaging first. Chest PA [...] have questions please contact the health child day care provider that requested your imaging first. Course as [...] of the LLE with admission complicated by [facility] s/p DESx1 and transient episode of new [...] from [place]. Brittany Ramirez MD Resident 05/31/22 [id number] Associated attestation - Regina Hinds MD - [...] soft blood pressures, MD made aware. LBM CLERICAL CAR CHECKER. 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 Patient reported blurry/hazy [...] Heparin gtt - plan to bridge to [place] Discharge planning Increase strength & mobility INDIVIDUALIZED [...] from the original note were not included. [facility] [place] [address] INPATIENT CARDIOLOGY CONSULT NOTE Date of Consultation: 06/01/2022 Admit Date: 05/31/2022 Place of Service: IS86/IS86-A Referring Attending: REGINA HINDS COLEMAN W FRIEDMAN, HARLEY P Responsible Head Well Puller: Dr. Rizo Hospital Day 1 day Reason [...] LCX and LCx stent) who presented to [facility] on 05/31/2022 for GI bleed. Patient presented [...] IR Biopsy Spine 07/20/2019 Bobby Marshall MD [facility] RAD ??? IR VERTEBROPLASTY LUMBAR MULTIPLE LEVELS 07/20/2019 IR Vertebroplasty Lumbar Multiple Levels 07/20/2019 Bobby Marshall MD [facility] INTER[facility] RAD ??? IR VERTEBROPLASTY THORACIC SINGLE LEVEL 10/25/2020 IR Vertebroplasty Thoracic Single Level 10/25/2020 Matt Chisholm MD [facility] INTERVENTION[facility] RAD ??? PRO EMBLC/THRMBC FEMORAL POPLITEAL AORTO-ILIAC ARTERY Left 05/15/2022 EMBOLECTOMY OR THROMBECTOMY, FEMOROPOPLITEAL, AORTOILIAC ARTERY BY LEG INCISION (WRVU 19.48) performed by Fito Summers MD at [facility] MAIN OR ALLERGIES: Allergies Allergen Reactions ??? [...] time ??? fluticasone propionate (FLONASE) 50 mcg/actuation [place], Suspension 1 spray by Each Nare route [...] from 05/31/2022 in Intermediate Special Care Unit [facility] ED to Hosp-Admission (Discharged) from 05/15/2022 in Intermediate Cardiac Care Unit [facility] Weight 77.1 kg (170 lb) 1 [...] Neurology: Without focal deficit ECG: Echocardiogram: 05/16/2022 [facility] 05/20/2022 Coronary Angiography: Dominance: Right Left Main [...] 3.5 guiding catheter and a 3.5 Fr [facility] [address] 20 Mhz. Imaging was successful. Image [...] atmospheres. A premounted 2.75 x 30 mm Mercer Rusk (AMPARO) was deployed with a maximum inflation [...] may require modification of this regimen. Consult [facility] Interventional Cardiology for questions. The 1 year [...] Hb drop. Unknown source. has had a [facility] with stent placed and revascularization of left [...] have questions please contact the health child day care provider that requested your imaging first. [employer] 48 [...] have questions please contact the health child day care provider that requested your imaging first. Recent Labs [...] on xarelto, ischemic systolic heart failure (recent [facility] 05/20/2022 with 2V disease OM1 and distal RCA, had ostial LCX and LCx stent), recent admission for acutelimb ischemia LLE, where he had left common femoral transverse arteriotomy and primary repair, thromboembolectomy of the SFA, profunda and common femoral artery with 4 compartment fasciotomies, who presented to [facility] on 05/31/2022 for GI bleed. Cardiology consulted [...] attestation for additional insight. Rossy Anaya MD [facility] Lumber Racker, PGY-5 Inpatient Cardiology Consults Pager #[phone] Please check Qgenda for on-call cardiology consults [...] A&Ox 4. On room air. VSS. LBM: CLERICAL CAR CHECKER. Adequate urine output, urinal at bedside, flomax [...] surrogate would be surrogate decision maker per [place] surrogate decision making law. (Only good for 180 days) Any patient receiving care in [place] must abide by [place] law. The hierarchy for surrogate decision making [...] (i) The agent with financial power of employee benefits attorney or a conservator appointed in accordance [...] walker - rolling Home Address confirmed as: [address] [place] [phone] Social & Family Supports: All names listed below confirmed with patient as current and correct Extended Emergency Contact Information Primary Emergency Contact: Ursula Zamora Address: [address] [place] [id number] [facility] Relation: Spouse Current Care Provided by: [...] Type: *No Product type* / Secondary Insurance: [facility] Secondary Insurance? (Only Medicare A&B): Yes ; Prescription Coverage: Yes Preferred Pharmacy: [facility] [address] [place] Status: Patient is a : No Primary Care Provider: Bobby Das MD [phone] Patient/Caregiver Goals of Treatment: Patient plans to [...] with transition of care planning. ASH [place] [facility] Medicine/ Medical Specialties Pager- [phone] Plan of [...] OUTCOME EVALUATION: Consult Note - Lonnie Good, [facility] - 05/31/2022 9:42 PM EDT TelePharmacy [...] Operative Note Patient Name: Koko Zamora : [id number] MR#: [id number] Case Date: 05/31/2022 Surgeon: Surgeon(s) and Role: [...] stomach. He has had colonoscopies before in [place] - notes first ever he had 6 polyps removed but last colo 5 yrs ago was normal. He lives in [facility]. Currently light-headedness is improved. No fevers, [...] IR Biopsy Spine 07/20/2019 Bobby Marshall MD [facility] RAD ??? IR VERTEBROPLASTY LUMBAR MULTIPLE LEVELS 07/20/2019 IR Vertebroplasty Lumbar Multiple Levels 07/20/2019 Bobby Marshall MD [facility] INTERVENT[facility] RAD ??? IR VERTEBROPLASTY THORACIC SINGLE LEVEL 10/25/2020 IR Vertebroplasty Thoracic Single Level 10/25/2020 Matt Chisholm MD [facility] INTERVENTION[facility] RAD ??? PRO EMBLC/THRMBC FEMORAL POPLITEAL AORTO-ILIAC ARTERY Left 05/15/2022 EMBOLECTOMY OR THROMBECTOMY, FEMOROPOPLITEAL, AORTOILIAC ARTERY BY LEG INCISION (WRVU 19.48) performed by Fito Summers MD at [facility] MAIN OR SOCIAL HX: Social History Socioeconomic [...] sounds, tympanic to percussion RECTAL: performed with print producer present, no overt masses, fissures, external hemorrhoids, [...] have questions please contact the health child day care provider that requested your imaging first. Abdomen & [...] Office Visit Vascular Surgery Jing Ghosh, HIRAL [facility] VASCULAR SURGERY [place], [place] [address] (Wo rk) 09/02/2022 Clinical Support Dermatology Thai Lynn MD [facility] DR JENNY BILLY[place]DERMAT [place], [place] [address] (Wo rk) 09/02/2022 Procedure visit Dermatology Jace Lynn MD [facility] DR JENNY [place]ILLY[place], [place] [address] (Wo rk) 09/05/2022 Appointment Cardiology Trinity Reid MD [facility] CARDIOLOGY [place], [place] [address] (Wo rk) 09/05/2022 Office Visit Cardiology Trinity Reid MD [facility] CARDIOLOGY [place], [place] [address] (Wo rk) documented as of [...] EDT) athologist Signature Neutrophils % 61.3 % [facility] Neutr Abs (ANC) 4.44 1.70 - [facility] 6.10 [facility] x10(3)/[facility] LABORATORY Lymphocytes % 25.2 % [facility] Lymphocytes Abs 1.8 0.9 - 3.2 [facility] x10(3)/[facility] LABORATORY Monocytes % 10.0 % [facility] Monocyte Abs 0.7 0.3 - 0.9 [facility] x10(3)/[facility] LABORATORY Eosinophils % 2.1 % [facility] Eosinophils Abs 0.2 0.0 - 0.4 [facility] x10(3)/[facility] LABORATORY Basophils % 0.7 % [facility] Basophils Abs 0.0 0.0 - 0.1 [facility] x10(3)/[facility] LABORATORY Immature Gran % 0.70 % [facility] Comment: Immature granulocytes(IG's)percentage an d absolute count will include metamyelocytes, myelocytes, and promyelo cytes. Blood smears from CBCs yielding IG's will be scanned manually for concor dance. If this scan disagrees with the automated IG or if promyelocytes are not ed, a manual differential will be performed. Rain Gran Abs 0.05 (H) 0.00 - 0.04 x10(3)/[facility] LABORATORY Specimen Anatomical Collection Method Collection Time Receive d Time (Source) Location / / Volume Laterality Blood 06/02/2022 8:20 AM 8:25 EDT AM EDT Resulting Agency Comment Spec In Lab Kurt Ames MD HEMATOLOGY ORDERABLES Performing Organization Address City/State/Z[place] [address] (ABNORMAL) Hemogram (06/02/2022 8:20 AM EDT) Analysis Performed At Patho logist Time Signature WBC 7.2 4.0 - 9.5 [facility] x10(3)/[facility] LABORATORY RBC 2.74 (L) 4.58 - [facility] 5.54 [facility] x10(6)/[facility] LABORATORY Hemoglobin 8.7 (L) 13.7 - [facility] 16.[facility] g/dL [facility] Hematocrit 25.7 (L) 40.5 - [facility] 48.5 % [facility] MCV 93.8 (H) 82.9 - [facility] 93.1 fL [facility] MCH 31.8 27.5 - [facility] 32.1 pg [facility] MCHC 33.9 32.0 - [facility] 35.7 g/dL [facility] Platelets 260 145 - 357 [facility]LL[facility] x10(3)/[facility] LABORATORY RDWSD 51.0 (H) 36.0 - [facility] 45.0 [facility] LABORATORY RDWCV 14.9 (H) 11.4 - [facility] 13.8 % [facility] MPV 10.0 7.6 - 12.9 [facility] LABORATORY nRBC % Auto 0.0 % [facility] nRBC Abs Auto 0.000 0.000 - [facility] 0.000 [facility] x10(3)/[facility] LABORATORY Specimen Anatomical Collection Method Collection Time Receive d Time (Source) Location / / Volume Laterality Blood 06/02/2022 8:20 AM 2 8:25 EDT AM EDT Resulting Agency Comment Spec In Lab Kurt Ames MD HEMATOLOGY ORDERABLES Performing Organization Address City/State/[place] [address] Heparin (unfractionated) Level (06/02/2022 6:30 AM EDT) P athologist Signature Heparin UFH 0.39 IU/mL [facility] LABORATORY Comment: Heparin (anti-Xa) levels should be [...] Victor MD HEMATOLOGY ORDERABLES Performing Organization Address City/[facility]/[place] [address] Heparin (unfractionated) Level (06/02/2022 12:30 AM EDT) athologist Signature Heparin UFH 0.81 IU/mL [facility] LABORATORY Comment: Heparin (anti-Xa) levels should be [...] Victor MD HEMATOLOGY ORDERABLES Performing Organization Address City/[facility]/[place] [address] Magnesium (06/02/2022 12:30 AM EDT) P athologist Signature Magnesium 0.83 0.69 - 1.07 [facility] mmol/L [facility] Specimen Anatomical Collection Method Collection Time Receive d Time (Source) Location / / Volume Laterality Blood 06/02/2022 12:30 06/02/2022 AM EDT 12:40 AM EDT Resulting Agency Comment Spec In Lab Mahendra Victor MD CHEMISTRY ORDERABLES Performing Organization Address City/[facility]/[place] [address] (ABNORMAL) Basic Metabolic Panel (non-fasting) (06/02/2022 12:30 AM EDT) P athologist Signature Glucose Lvl 151 65 - 199 [facility] mg/dL [facility] Comment: Diabetes: >=200 mg/dL plus symp toms BUN 12 10 - 20 mg/dL [facility]OR[facility]ORY Creatinine 0.71 (L) 0.80 - 1.50 mg/dL [facility] LABOR[facility] Sodium 142 135 - 145 mmol/L [facility]OR[facility] Potassium 3.8 3.5 - 5.0 mmol/L [facility] Comment: Please note: ??Patients with WBC >100,00 0 may have falsely elevated Potassium levels. ??For accurate Potassium quantif ication in these patients send serum separator tube (gold top) for subsequent determinations. ??Contact the Clinical Chemistry Laboratory if there are any qu estions. Chloride 108 (H) 98 - 107 mmol/L [facility] CO2 24 22 - 31 mmol/L [facility] Anion Gap 10 5 - 15 mmol/L [facility] Calcium 8.1 (L) 8.5 - 10.5 mg/dL [facility] Estimated GFR 93 >=60 mL/min/1.73 m?? [facility] Comment: This patient's estimated GFR [...] Victor MD CHEMISTRY ORDERABLES Performing Organization Address City/[facility]/ZIP Code Phon e Number [place] [id number] [facility] LABORATORY Drive (ABNORMAL) Differential, Automated (06/01/2022 7:29 PM EDT) P athologist Signature Neutrophils % 68.8 % [facility] Neutr Abs (ANC) 5.34 1.70 - [facility] 6.10 [facility] x10(3)/[facility] LABORATORY Lymphocytes % 19.6 % [facility] Lymphocytes Abs 1.5 0.9 - 3.2 [facility] x10(3)/[facility] LABORATORY Monocytes % 8.1 % [facility] Monocyte Abs 0.6 0.3 - 0.9 [facility] x10(3)/[facility] LABORATORY Eosinophils % 1.8 % [facility] Eosinophils Abs 0.1 0.0 - 0.4 [facility] x10(3)/[facility] LABORATORY Basophils % 0.8 % [facility] Basophils Abs 0.1 0.0 - 0.1 [facility] x10(3)/[facility] LABORATORY Immature Gran % 0.90 % [facility] Comment: Immature granulocytes(IG's)percentage an d absolute count will include metamyelocytes, myelocytes, and promyelo cytes. Blood smears from CBCs yielding IG's will be scanned manually for concor dance. If this scan disagrees with the automated IG or if promyelocytes are not ed, a manual differential will be performed. Rain Gran Abs 0.07 (H) 0.00 - 0.04 x10(3)/[facility] LABORATORY Specimen Anatomical Collection Method Collection Time Receive d Time (Source) Location / / Volume Laterality Blood 06/01/2022 7:29 PM 7:29 EDT PM EDT Resulting Agency Comment Spec In Lab Kurt Ames MD HEMATOLOGY ORDERABLES Performing Organization Address City/[facility]/Z[place] [address] (ABNORMAL) Hemogram (06/01/2022 7:29 PM EDT) Analysis Performed At Patho logist Time Signature WBC 7.8 4.0 - 9.5 [facility] x10(3)/[facility] LABORATORY RBC 2.65 (L) 4.58 - [facility] 5.54 [facility] x10(6)/[facility] LABORATORY Hemoglobin 8.3 (L) 13.[address] [facility] 16.5 g/dL [facility] Hematocrit 24.8 (L) 40.5 - [facility] 48.5 % [facility] MCV 93.6 (H) 82.9 - [facility] 93.1 [facility] LABORATORY MCH 31.3 27.5 - [facility] 32.1 pg [facility] MCHC 33.5 32.0 - [facility] 35.7 g/dL [facility] Platelets 263 145 - 357 [facility] x10(3)/[facility] LABORATORY RDWSD 52.8 (H) 36.0 - [facility] 45.0 [facility] LABORATORY RDWCV 15.4 (H) 11.4 - [facility] 13.8 % [facility] MPV 10.4 7.6 - 12.9 [facility] LABORATORY nRBC % Auto 0.0 % [facility]ORAT[facility] nRBC Abs Auto 0.000 0.000 - [facility] 0.000 [facility] x10(3)/[facility] LABORATORY Specimen Anatomical Collection Method Collection Time Receive d Time (Source) Location / / Volume Laterality Blood 06/01/2022 7:29 PM 7:29 EDT PM EDT Resulting Agency Comment Spec In Lab Kurt Ames MD HEMATOLOGY ORDERABLES Performing Organization Address City/State/[place] [address] Heparin (unfractionated) Level (06/01/2022 7:29 PM EDT) P athologist Signature Heparin UFH 0.81 IU/mL [facility] LABORATORY Comment: Heparin (anti-Xa) levels should be [...] Organization Address City/State/ZIP Code Phon e Number [place] [phone] HOS[address] (ABNORMAL) Heparin (unfractionated) Level (06/01/2022 11:32 AM EDT) [facility] Method Time Signature Heparin UFH 1.05 IU/mL [facility] (Critical) [facility] Comment: Critical Result called by [...] Organization Address City/State/Z[place] [address] (ABNORMAL) Differential, Automated (06/01/2022 5:56 AM EDT) [facility] Method Time Signature Neutrophils % 62.7 % [facility] Neutr Abs (ANC) 6.11 (H) 1.70 - [facility] 6.10 [facility] x10(3)/[facility] LABORATORY Lymphocytes % 23.5 % [facility] Lymphocytes Abs 2.3 0.9 - 3.2 [facility] x10(3)/[facility] LABORATORY Monocytes % 10.0 % [facility] Monocyte Abs 1.0 (H) 0.3 - 0.9 [facility] x10(3)/[facility] LABORATORY Eosinophils % 2.2 % [facility] Eosinophils Abs 0.2 0.0 - 0.4 [facility] x10(3)/[facility] LABORATORY Basophils % 0.9 % [facility] Basophils Abs 0.1 0.0 - 0.1 [facility] x10(3)/[facility] LABORATORY Immature Gran % 0.70 % [facility] Comment: Immature granulocytes(IG's)percentage an d absolute count will include metamyelocytes, myelocytes, and promyelo cytes. Blood smears from CBCs yielding IG's will be scanned manually for concor dance. If this scan disagrees with the automated IG or if promyelocytes are not ed, a manual differential will be performed. Rain Gran Abs 0.07 (H) 0.00 - 0.04 x10(3)/[facility] LABORATORY Specimen Anatomical Collection Method Collection Time Receive d Time (Source) Location / / Volume Laterality Blood 06/01/2022 5:56 AM 6:05 EDT AM EDT Resulting Agency Comment Spec In Lab Arpita Valle MD HEMATOLOGY ORDERABLES Performing Organization Address City/State/[place] [address] (ABNORMAL) Hemogram (06/01/2022 5:56 AM EDT) Analysis Performed At Patho logist Time Signature WBC 9.7 (H) 4.0 - 9.5 [facility] x10(3)/[facility] LABORATORY RBC 2.83 (L) 4.58 - [place] [facility] 5.54 [facility] x10(6)/[facility] LABORATORY Hemoglobin 9.0 (L) 13.[address] [facility] 16.5 g/dL [facility] LABORATORY Hematocrit 26.7 (L) 40.5 - [facility] 48.5 % [facility] LABORATORY MCV 94.3 (H) 82.9 - [facility] 93.1 [facility] LABORATORY MCH 31.8 27.5 - [place] 32.1 pg [facility] LABORATORY MCHC 33.7 32.0 - [place] [facility] 35.7 g/dL [facility] LABORATORY Platelets 250 145 - 357 [facility] x[facility] LABORATORY RDWSD 54.3 (H) 36.0 - [facility] 45.0 [facility] LABORATORY RDWCV 15.9 (H) 11.4 - [facility] 13.8 % [facility] LABORATORY MPV 10.5 7.6 - 12.9 [facility] LABORATORY nRBC % Auto 0.0 % [facility] LABORATORY nRBC Abs Auto 0.000 0.000 - [place] [employer] 0.000 [facility] x10(3)/[facility] LABORATORY Specimen Anatomical Collection Method Collection Time Receive d Time (Source) Location / / Volume Laterality Blood 06/01/2022 5:56 AM 6:05 EDT AM EDT Resulting Agency Comment Spec In Lab Arpita Valle MD HEMATOLOGY ORDERABLES Performing Organization Address City/State/Z[place] [address] Heparin (unfractionated) Level (06/01/2022 4:30 AM EDT) P athologist Signature Heparin UFH 0.68 IU/mL [facility] LABORATORY Comment: Heparin (anti-Xa) levels should be [...] Organization Address City/State/[place] [address] (ABNORMAL) Urinalysis with reflex Culture (06/01/2022 4:00 AM EDT) Patholo gist Method Time Signature Glucose UA 500 Negative [facility] (Critical) mg/dL [facility] LABORATORY Comment: Urinalysis result NOT critical without a combination of Glucose greater than or equal to 500 mg/dL AND Ketones greate r than or equal to 80 mg/dL Protein UA Negative Negative mg/dL [facility] LABORATORY Bilirubin UA Negative Negative mg/dL [facility] LABORATORY Comment: Clinical correlation required for positi ve Urine Bilirubin results as false positive may occur with some drugs and d rug related products. If a false positive is suspected a serum total bili quarles should be considered if clinically indicated. Urobilinogen UA Normal Normal mg/dL [facility] LABORATORY pH UA 6.0 5.0 - 8.0 [facility] LABORATORY Blood UA Negative Negative mg/dL [facility] LABORATORY Ketones UA Negative Negative mg/dL [facility] LABORATORY Nitrite UA Negative Negative [facility] LABORATORY Leukocytes UA Negative Negative [facility] LABORATORY Appearance UA Clear Clear [facility] LABORATORY Spec [place] UA >=1.030 (A) 1.005 - 1.030 [facility] LABORATORY Color UA Yellow Yellow [facility] LABORATORY Culture Reflexed No [facility] LABORATORY Specimen Anatomical Collection Method Collection Time Receive d Time (Source) Location / / Volume Laterality Clean Catch 06/01/2022 4:00 AM 2 4:26 Urine EDT AM EDT Resulting Agency Comment Spec In Lab Mahendra Victor MD URINE ORDERABLES Performing Organization Address City/[facility]/ZIP Code Phon e Number [address] Magnesium (06/01/2022 1:00 AM EDT) athologist Signature Magnesium 0.93 0.69 - 1.07 [facility] mmol/L [facility] LABORATORY Specimen Anatomical Collection Method Collection Time Receive d Time (Source) Location / / Volume Laterality Blood 06/01/2022 1:00 AM 2 1:37 EDT AM EDT Resulting Agency Comment Spec In Lab Mahendra Victor MD CHEMISTRY ORDERABLES Performing Organization Address City/[facility]/ZIP Code Phon e Number [address] (ABNORMAL) Basic Metabolic Panel (non-fasting) (06/01/2022 1:00 AM EDT) P athologist Signature Glucose Lvl 148 65 - 199 [facility] mg/dL [facility] LABORATORY Comment: Diabetes: >=200 mg/dL plus symp toms BUN 23 (H) 10 - 20 mg/dL [facility] LABORATORY Creatinine 0.78 (L) 0.80 - 1.50 mg/dL [facility] LABORATORY Sodium 141 135 - 145 mmol/L [facility] LABORATORY Potassium 4.0 3.5 - 5.0 mmol/L [facility] LABORATORY Comment: Please note: ??Patients with WBC >100,00 0 may have falsely elevated Potassium levels. ??For accurate Potassium quantif ication in these patients send serum separator tube (gold top) for subsequent determinations. ??Contact the Clinical Chemistry Laboratory if there are any qu estions. Chloride 108 (H) 98 - 107 mmol/L [facility] LABORATORY CO2 24 22 - 31 mmol/L [facility] LABORATORY Anion Gap 9 5 - 15 mmol/L [facility] LABORATORY Calcium 8.6 8.5 - 10.5 mg/dL [facility] LABORATORY Estimated GFR 91 >=60 mL/min/1.73 m?? [facility] LABORATORY Comment: This patient's estimated GFR [...] Organization Address City/State/Z[place] [address] (ABNORMAL) Differential, Automated (06/01/2022 12:00 AM EDT) P athologist Signature Neutrophils % 64.6 % [facility] LABORATORY Neutr Abs (ANC) 5.60 1.70 - [facility] 6.10 [facility] x10(3)/[facility] LABORATORY Lymphocytes % 22.4 % [facility] LABORATORY Lymphocytes Abs 1.9 0.9 - 3.2 [facility] x10(3)/[facility] LABORATORY Monocytes % 9.5 % [facility] LABORATORY Monocyte Abs 0.8 0.3 - 0.9 [facility] x10(3)/[facility] LABORATORY Eosinophils % 2.1 % [facility] LABORATORY Eosinophils Abs 0.2 0.0 - 0.4 [facility] x10(3)/[facility] LABORATORY Basophils % 0.6 % [facility] LABORATORY Basophils Abs 0.0 0.0 - 0.1 [facility] x10(3)/[facility] LABORATORY Immature Gran % 0.80 % [facility] LABORATORY Comment: Immature granulocytes(IG's)percentage an d absolute count will include metamyelocytes, myelocytes, and promyelo cytes. Blood smears from CBCs yielding IG's will be scanned manually for concor dance. If this scan disagrees with the automated IG or if promyelocytes are not ed, a manual differential will be performed. Rain Gran Abs 0.07 (H) 0.00 - 0.04 x10(3)/[facility] LABORATORY Specimen (Source) Anatomical Collection Method Collection Time Re ceived Time Location / / Volume Laterality Blood 06/01/2022 06/01/2022 12:1 0 AM EDT Resulting Agency Comment Spec In Lab Arpita Valle MD HEMATOLOGY ORDERABLES Performing Organization Address City/State/ZIP [place] [address] (ABNORMAL) Hemogram (06/01/2022 12:00 AM EDT) Analysis Performed At Patho logist Time Signature WBC 8.7 4.0 - 9.5 [facility] x10(3)/[facility] LABORATORY RBC 2.77 (L) 4.58 - [facility] 5.54 [facility] x10(6)/[facility] LABORATORY Hemoglobin 8.6 (L) 13.7 - [facility] 16.5 g/dL [facility] LABORATORY Hematocrit 25.7 (L) 40.5 - [facility] 48.5 % [facility] LABORATORY MCV 92.8 82.9 - [facility] 93.1 [facility] LABORATORY MCH 31.0 27.5 - [place] HAGEN 32.1 pg [facility] LABORATORY MCHC 33.5 32.0 - [place] [facility] 35.7 g/dL [facility] LABORATORY Platelets 260 145 - 357 [facility] x10(3)/[facility] LABORATORY RDWSD 51.9 (H) 36.0 - [facility] 45.0 [facility] LABORATORY RDWCV 15.5 (H) 11.4 - [facility] 13.8 % [facility] LABORATORY MPV 10.4 7.6 - 12.9 [facility] LABORATORY nRBC % Auto 0.0 % [facility] LABORATORY nRBC Abs Auto 0.000 0.000 - [facility] 0.000 [facility] x10(3)/[facility] LABORATORY Specimen (Source) Anatomical Collection Method Collection Time Re ceived Time Location / / Volume Laterality Blood 06/01/2022 06/01/2022 12:1 0 AM EDT Resulting Agency Comment Spec In Lab Arpita Valle MD HEMATOLOGY ORDERABLES Performing Organization Address City/State/ZIP [place] [address] (ABNORMAL) Differential, Automated (05/31/2022 9:17 PM EDT) athologist Signature Neutrophils % 59.6 % [facility] LABORATORY Neutr Abs (ANC) 3.98 1.70 - [place] 6.10 [facility] x10(3)/[facility] LABORATORY Lymphocytes % 27.5 % [facility] LABORATORY Lymphocytes Abs 1.8 0.9 - 3.2 [facility] x10(3)/[facility] LABORATORY Monocytes % 9.1 % [facility] LABORATORY Monocyte Abs 0.6 0.3 - 0.9 [facility] x10(3)/[facility] LABORATORY Eosinophils % 2.4 % [facility] LABORATORY Eosinophils Abs 0.2 0.0 - 0.4 [facility] x10(3)/[facility] LABORATORY Basophils % 0.7 % [facility] LABORATORY Basophils Abs 0.0 0.0 - 0.1 [facility] x10(3)/[facility] LABORATORY Immature Gran % 0.70 % [facility] LABORATORY Comment: Immature granulocytes(IG's)percentage an d absolute count will include metamyelocytes, myelocytes, and promyelo cytes. Blood smears from CBCs yielding IG's will be scanned manually for concor dance. If this scan disagrees with the automated IG or if promyelocytes are not ed, a manual differential will be performed. Rain Gran Abs 0.05 (H) 0.00 - 0.04 x10(3)/[facility] LABORATORY Specimen Anatomical Collection Method Collection Time Receive d Time (Source) Location / / Volume Laterality Blood 05/31/2022 9:17 PM 9:25 EDT PM EDT Resulting Agency Comment Spec In Lab Arpita Valle MD HEMATOLOGY ORDERABLES Performing Organization Address City/State/Z[place] [address] (ABNORMAL) Hemogram (05/31/2022 9:17 PM EDT) Analysis Performed At Patho logist Time Signature WBC 6.7 4.0 - 9.5 [facility] x10(3)/[facility] LABORATORY RBC 2.74 (L) 4.58 - [place] [facility] 5.54 [facility] x10(6)/[facility] LABORATORY Hemoglobin 8.5 (L) 13.7 - [facility] 16.[facility] g/dL [facility] LABORATORY Hematocrit 25.7 (L) 40.5 - [place] [facility] 48.5 % [facility] LABORATORY MCV 93.8 (H) 82.9 - [facility] 93.1 [facility] LABORATORY MCH 31.0 27.5 - [place] [facility] 32.1 pg [facility] LABORATORY MCHC 33.1 32.0 - [facility] 35.7 g/dL [facility] LABORATORY Platelets 233 145 - 357 [facility] x10(3)/[facility] LABORATORY RDWSD 51.9 (H) 36.0 - [place] [facility] 45.0 [facility] LABORATORY RDWCV 15.3 (H) 11.4 - [facility] 13.8 % [facility] LABORATORY MPV 10.3 7.6 - 12.[address] [facility] LABORATORY nRBC % Auto 0.0 % [facility] LABORATORY nRBC Abs Auto 0.000 0.000 - [facility] 0.000 [facility] x10(3)/[facility] LABORATORY Specimen Anatomical Collection Method Collection Time Receive d Time (Source) Location / / Volume Laterality Blood 05/31/2022 9:17 PM 9:25 EDT PM EDT Resulting Agency Comment Spec In Lab Arpita Valle MD HEMATOLOGY ORDERABLES Performing Organization Address City/State/Z[place] [address] Transfuse RBC (05/31/2022 7:36 PM EDT) Regina Hinds MD NURSING TREATMENT ORDERABLES - BLOOD ADMIN Transfuse RBC (05/31/2022 7:36 PM EDT) Regina Hinds MD NURSING TREATMENT ORDERABLES - BLOOD ADMIN UPPER GI ENDOSCOPY (05/31/2022 3:37 PM EDT) Component Value Ref Test Analysis Performed At [facility] Range Method Time Signature UPPER GI [facility]OV[facility] ENDOSCOPY Endoscopy Procedure Date: 05/31/2022 3:37 PM ? Patient Name: Koko Zamora ? Date of : 1940 ? Age: 81 ? Order #: [id number] ? Instrument Name: [id number] ? Procedure: ? Upper GI endoscopy Indications: [...] Procedure Code(s): ? --- Professional --- ? 07678, Esophagogastroduode noscopy, ? flexible, transoral; with control [...] stomach ? and duodenum CPT copyright 2020 [employer]. All rights reserved. The codes documented in this report are preliminary and upon wired music operator review may be revised to meet current [...] have questions please contact the health child day care provider that requested your imaging first. ? Narrative [...] enlarged lymph nodes. 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 [...] the original. EXAMINATION: [facility] CLINICAL HISTORY: Significant Hb [...] enlarged lymph nodes. 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 [...] have questions please contact the health child day care provider that requested your imaging first. Regina Hinds MD IMG CT ORDERABLES Type and Screen Validity (05/31/2022 1:43 PM EDT) [facility] Method Time Signature T&S only valid [facility] LABORATORY Comment: This Type and Screen result is only valid at the [facility] Specimen Anatomical Collection Method Collection Time Receive d Time (Source) Location / / Volume Laterality Blood 05/31/2022 1:43 PM 2 1:57 EDT PM EDT Resulting Agency Comment Spec In Lab Regina Hinds MD BLOOD BANK ORDERABLES Performing Organization Address City/State/Z[place] [address] ABORH Recheck Status (05/31/2022 1:43 PM EDT) [facility] Method Time Signature ABORH Type Completed [facility] LABORATORY Specimen Anatomical Collection Method Collection Time Receive d Time (Source) Location / / Volume Laterality Blood 05/31/2022 1:43 PM 2 1:57 EDT PM EDT Resulting Agency Comment Spec In Lab Regina Hinds MD BLOOD BANK ORDERABLES Performing Organization Address City/[facility]/[place] [address] Antibody screen (05/31/2022 1:43 PM EDT) Patholo gist Method Time Signature Ab Screen Negative [facility] LABORATORY Expires at 06/03/2022 [facility] [id number] on: [facility] LABORATORY Specimen Anatomical Collection Method Collection Time Receive d Time (Source) Location / / Volume Laterality Blood 05/31/2022 1:43 PM 2 1:57 EDT PM EDT Resulting Agency Comment Spec In Lab Regina Hinds MD BLOOD BANK ORDERABLES Performing Organization Address City/[facility]/[place] [address] ABO/Rh Typing (05/31/2022 1:43 PM EDT) P athologist Signature ABORh Type O Pos [facility] LABORATORY Specimen Anatomical Collection Method Collection Time Receive d Time (Source) Location / / Volume Laterality Blood 05/31/2022 1:43 PM 2 1:57 EDT PM EDT Resulting Agency Comment Spec In Lab Regina Hinds MD BLOOD BANK ORDERABLES Performing Organization Address City/[facility]/[place] [address] Prepare RBC (05/31/2022 1:35 PM EDT) P athologist Signature Dispensed? Yes [facility] LABORATORY Specimen Anatomical Collection Method Collection Time Receive d Time (Source) Location / / Volume Laterality Blood 05/31/2022 1:35 PM 2 1:30 EDT PM EDT Regina Hinds MD BLOOD BANK ORDERABLES Performing Organization Address City/[facility]/ZIP Code Phon [place] [address] Prepare RBC (05/31/2022 1:25 PM EDT) athologist Signature Dispensed? Yes [facility] LABORATORY Specimen Anatomical Collection Method Collection Time Receive d Time (Source) Location / / Volume Laterality Blood 05/31/2022 1:25 PM 2 1:23 EDT PM EDT Regina Hinds MD BLOOD BANK ORDERABLES Performing Organization Address City/State/ZIP Code Phon e Number [place] [id number] [facility] LABORATORY Drive (ABNORMAL) Differential, Automated (05/31/2022 12:44 PM EDT) athologist Signature Neutrophils % 62.0 % [facility] LABORATORY Neutr Abs (ANC) 4.71 1.70 - [facility] 6.10 [facility] x10(3)/[facility] LABORATORY Lymphocytes % 24.1 % [facility] LABORATORY Lymphocytes Abs 1.8 0.9 - 3.2 [facility] x10(3)/[facility] LABORATORY Monocytes % 10.8 % [facility] LABORATORY Monocyte Abs 0.8 0.3 - 0.9 [facility] x10(3)/[facility] LABORATORY Eosinophils % 1.6 % [facility] LABORATORY Eosinophils Abs 0.1 0.0 - 0.4 [facility] x10(3)/[facility] LABORATORY Basophils % 0.7 % [facility] LABORATORY Basophils Abs 0.0 0.0 - 0.1 [facility] x10(3)/[facility] LABORATORY Immature Gran % 0.80 % [facility] LABORATORY Comment: Immature granulocytes(IG's)percentage an d absolute count will include metamyelocytes, myelocytes, and promyelo cytes. Blood smears from CBCs yielding IG's will be scanned manually for concor dance. If this scan disagrees with the automated IG or if promyelocytes are not ed, a manual differential will be performed. Rain Gran Abs 0.06 (H) 0.00 - 0.04 x10(3)/[facility] LABORATORY Specimen Anatomical Collection Method Collection Time Receive d Time (Source) Location / / Volume Laterality Blood 05/31/2022 12:44 05/31/2022 PM EDT 12:57 PM EDT Resulting Agency Comment Spec In Lab Brittany Ramirez MD HEMATOLOGY ORDERABLES Performing Organization Address City/State/Z[place] [address] (ABNORMAL) Hemogram (05/31/2022 12:44 PM EDT) Analysis Performed At Patho logist Time Signature WBC 7.6 4.0 - 9.5 [facility] x10(3)/[facility] LABORATORY RBC 2.11 (L) 4.58 - [facility] x10(6)/[facility] LABORATORY Hemoglobin 6.9 (L) 13.[address] [facility] 16.5 g/dL [facility] LABORATORY Hematocrit 20.8 (L) 40.5 - [facility] 48.5 % [facility] MCV 98.6 (H) 82.[address] [facility] 93.1 [facility] LABORATORY MCH 32.7 (H) 27.5 - [facility] 32.1 pg [facility] LAB[facility]AT[facility] MCHC 33.2 32.0 - [facility] 35.[facility] g/dL [facility] LAB[facility] Platelets 255 145 - 357 [facility] x10(3)/[facility] LABORATORY RDWSD 47.7 (H) 36.0 - [facility] 45.0 [facility] LABORATORY RDWCV 13.4 11.4 - [facility] 13.8 % [facility] LABORATORY MPV 10.7 7.6 - 12.9 [facility] LABORATORY nRBC % Auto 0.0 % [facility] LABORATORY nRBC Abs Auto 0.000 0.000 - [facility] 0.000 [facility] x10(3)/[facility] LABORATORY Specimen Anatomical Collection Method Collection Time Receive d Time (Source) Location / / Volume Laterality Blood 05/31/2022 12:44 05/31/2022 PM EDT 12:57 PM EDT Resulting Agency Comment Spec In Lab Brittany Ramirez MD HEMATOLOGY ORDERABLES Performing Organization Address City/State/Z[place] [address] (ABNORMAL) BLOOD GAS 2 VENOUS (05/31/2022 11:24 AM EDT) P athologist Signature pH [place] 7.38 7.32 - [facility] 7.42 [facility] LABORATORY pCO2 [place] 40 (L) 41 - 51 [facility] LABORATORY pO2 [place] 18 (L) 25 - 40 [facility] LABORATORY HCO3 [place] 23.3 mmol/L [facility] LABORATORY BE [place] -1.8 mmol/L [facility] LABORATORY Hgb Blood Gas 7.0 (L) 13.7 - [facility] 16.5 g/dL [facility] LABORATORY O2HB [place] 24.3 % [facility] LABORATORY COHB [place] 1.4 % [facility] LABORATORY Comment: Nonsmokers: 0.5-1.5% COHB Smokers: Variable, but usually less than 10% Toxic: 20-30% COHB Lethal: Greater than 60% COHB METHB [place] 1.7 (H) <=1.5 % [facility] LABORATORY Na Whole Blood 137 135 - 145 mmol/L [facility] LABORATORY K Whole Blood 3.9 3.5 - 5.0 mmol/L [facility] LABORATORY Comment: Please note: Patients with WBC >100,000 may have falsely elevated Potassium levels. Contact the Clinical Chemistry L aboratory if there are any questions. ICa Whole Blood 1.19 1.15 - 1.33 mmol/L [facility] LABORATORY Comment: Note: ??Total bilirubin higher than 20 m g/dL may lead to falsely low ionized calcium. CL Whole Blood 107 98 - 107 mmol/L [facility] LABORATORY Gluc Whole Bld 204 (H) 65 - 199 mg/dL [facility] LABORATORY Comment: Diabetes: >=200 mg/dL plus symp toms Lactate WB 1.4 0.5 - 2.2 mmol/L [facility] LABORATORY BGas Source Venous [facility] LABORATORY Specimen Anatomical Collection Method Collection Time Receive d Time (Source) Location / / Volume Laterality Blood 05/31/2022 11:24 05/31/2022 AM EDT 11:24 AM EDT Regina Hidns MD CHEMISTRY ORDERABLES Performing Organization Address City/[facility]/ZIP Code Phon e Number [address] TSH Barber (05/31/2022 11:20 AM EDT) P athologist Signature TSH 1.67 0.27 - 4.20 [facility] mcIU/mL [facility] LABORATORY Comment: Reference Interval (mcIU/mL): Females: ??First Trimester: 0.23-3.88 ??Second Trimester: 0.22-3.90 ??Third Trimester: 0.44-4.66 Specimen Anatomical Collection Method Collection Time Receive d Time (Source) Location / / Volume Laterality Blood 05/31/2022 11:20 05/31/2022 AM EDT 11:28 AM EDT Resulting Agency Comment Spec In Lab Regina Hinds MD CHEMISTRY ORDERABLES Performing Organization Address City/[facility]/ZIP Code Phon e Number [address] XR Chest PA & [...] have questions please contact the health child day care provider that requested your imaging first. ? Narrative [...] have questions please contact the health child day care provider that requested your imaging first. Regina Hinds MD IMG DX ORDERABLES Lipase (05/31/2022 10:50 AM EDT) P athologist Signature Lipase 41 0 - 60 [place] unit/L [facility] LABORATORY Specimen Anatomical Collection Method Collection Time Receive d Time (Source) Location / / Volume Laterality Blood Venous Draw / 05/31/2022 10:50 05/31/2022 Unknown AM EDT 11:11 AM EDT Resulting Agency Comment Spec In Lab Zain Champion MD CHEMISTRY ORDERABLES Performing Organization Address City/[facility]/[place] [address] (ABNORMAL) Hepatic Function Panel (05/31/2022 10:50 AM EDT) Analysis Performed At Patho logist Time Signature Total Protein 6.4 6.1 - 8.0 [place] g/dL [facility] LABORATORY Albumin 4.1 3.2 - 5.2 [facility] g/dL [facility] LABORATORY AST 24 0 - 39 [place] unit/L [facility] LABOR[facility]ORY ALT 44 0 - 55 [place] unit/L [facility] LABORATORY Alk Phos 63 40 - 130 [facility] unit/L [facility] LABORATORY Total <0.2 (L) 0.2 - 1.3 [place] Bilirubin mg/dL [facility] LABORATORY Bili, Direct 0.1 0.0 - 0.3 [place] mg/dL [facility] LABORATORY Specimen Anatomical Collection Method Collection Time Receive d Time (Source) Location / / Volume Laterality Blood Venous Draw / 05/31/2022 10:50 05/31/2022 Unknown AM EDT 11:11 AM EDT Resulting Agency Comment Spec In Lab Zain Champion MD CHEMISTRY ORDERABLES Performing Organization Address City/[facility]/[place] [address] Blue Tube HOLD (05/31/2022 10:50 AM EDT) athologist Signature Blue Hold Sample in [facility] LABORATORY Specimen Anatomical Collection Method Collection Time Receive d Time (Source) Location / / Volume Laterality Blood Venous Draw / 05/31/2022 10:50 05/31/2022 Unknown AM EDT 11:05 AM EDT Brittany Ramirez MD HEMATOLOGY ORDERABLES Performing Organization Address City/State/ZIP [place] [address] (ABNORMAL) Differential, Automated (05/31/2022 10:50 AM EDT) athologist Signature Neutrophils % 66.9 % [facility] LABORATORY Neutr Abs (ANC) 5.58 1.70 - [facility] 6.10 [facility] x10(3)/[facility] LABORATORY Lymphocytes % 22.2 % [facility] LABORATORY Lymphocytes Abs 1.8 0.9 - 3.2 [facility] x10(3)/[facility] LABORATORY Monocytes % 7.8 % [facility] Monocyte Abs 0.6 0.3 - 0.9 [facility] x10(3)/[facility] LABORATORY Eosinophils % 1.2 % [facility] LABORATORY Eosinophils Abs 0.1 0.0 - 0.4 [facility] x10(3)/[facility] LABORATORY Basophils % 0.7 % [facility] LABORATORY Basophils Abs 0.1 0.0 - 0.1 [facility] x10(3)/[facility] LABORATORY Immature Gran % 1.20 % [facility] Comment: Immature granulocytes(IG's)percentage an d absolute count [...] Organization Address City/State/Z[place] [address] (ABNORMAL) Hemogram (05/31/2022 10:50 AM EDT) Analysis Performed At Patho logist Time Signature WBC 8.3 4.0 - 9.5 [facility] x10(3)/[facility] LABORATORY RBC 2.26 (L) 4.58 - [facility] x10(6)/[facility] LABORATORY Hemoglobin 7.4 (L) 13.[address] [facility] 16.5 g/dL [facility] LABORATORY Hematocrit 22.3 (L) 40.5 - [facility] 48.5 % [facility] MCV 98.7 (H) 82.[address] [facility] 93.1 [facility] LABORATORY MCH 32.7 (H) 27.5 - [facility] 32.1 pg [facility] MCHC 33.2 32.0 - [facility] g/dL [facility] Platelets 283 145 - 357 [facility] x10(3)/[facility] LABORATORY RDWSD 47.0 (H) 36.0 - [facility] 45.0 [facility] LABORATORY RDWCV 13.4 11.4 - [facility] 13.8 % [facility] LABORATORY MPV 10.8 7.6 - 12.9 [facility] LABORATORY nRBC % Auto 0.0 % [facility] LABORATORY nRBC Abs Auto 0.000 0.000 - [facility] 0.000 [facility] x10(3)/[facility] LABORATORY Specimen Anatomical Collection Method Collection Time Receive d Time (Source) Location / / Volume Laterality Blood 05/31/2022 10:50 05/31/2022 AM EDT 11:03 AM EDT Resulting Agency Comment Spec In Lab Brittany Ramirez MD HEMATOLOGY ORDERABLES Performing Organization Address City/State/[place] [address] Phosphorus (05/31/2022 10:50 AM EDT) P athologist Signature Phosphorus 3.2 2.5 - 4.5 [facility] mg/dL [facility] LABORATORY Specimen Anatomical Collection Method Collection Time Receive d Time (Source) Location / / Volume Laterality Blood 05/31/2022 10:50 05/31/2022 AM EDT 11:03 AM EDT Resulting Agency Comment Spec In Lab Regina Hinds MD CHEMISTRY ORDERABLES Performing Organization Address City/State/[place] [address] Magnesium (05/31/2022 10:50 AM EDT) P athologist Signature Magnesium 0.93 0.69 - 1.07 [facility] mmol/L [facility] LABORATORY Specimen Anatomical Collection Method Collection Time Receive d Time (Source) Location / / Volume Laterality Blood 05/31/2022 10:50 05/31/2022 AM EDT 11:03 AM EDT Resulting Agency Comment Spec In Lab Regina Hinds MD CHEMISTRY ORDERABLES Performing Organization Address City/State/[place] [address] (ABNORMAL) pro-Brain Natriuretic Peptide (05/31/2022 10:50 AM EDT) P athologist Signature ProBNP 1,077 (H) <=449 [facility] pg/mL [facility] LABORATORY Specimen Anatomical Collection Method Collection Time Receive d Time (Source) Location / / Volume Laterality Blood 05/31/2022 10:50 05/31/2022 AM EDT 11:03 AM EDT Resulting Agency Comment Spec In Lab Regina Hinds MD CHEMISTRY ORDERABLES Performing Organization Address City/State/[place] [address] Troponin (05/31/2022 10:50 AM EDT) P athologist Signature Troponin-T <0.01 0.00 - 0.00 [facility] ng/mL [facility] LABORATORY Comment: The 99th percentile for [...] additional sample may be indicated. Reference: Third [place] Definition of Myocardial Infarction. Journal of the [place] [employer] 2012;60:1581-98 Specimen Anatomical Collection Method Collection Time Receive d Time (Source) Location / / Volume Laterality Blood 05/31/2022 10:50 05/31/2022 AM EDT 11:03 AM EDT Resulting Agency Comment Spec In Lab Regina Hinds MD CHEMISTRY ORDERABLES Performing Organization Address City/State/ZIP [place] [address] (ABNORMAL) Basic Metabolic Panel (non-fasting) (05/31/2022 10:50 AM EDT) athologist Signature Glucose Lvl 223 (H) 65 - 199 [facility] mg/dL [facility] LABOR[facility]ORY Comment: Diabetes: >=200 mg/dL plus symp toms BUN 39 (H) 10 - 20 mg/dL [facility] LABORATORY Creatinine 0.91 0.80 - 1.50 mg/dL [facility] LABORATORY Sodium 140 135 - 145 mmol/L [facility] LABORATORY Potassium 4.1 3.5 - 5.0 mmol/L [facility] LABORATORY Comment: Please note: ??Patients with WBC >100,00 0 may have falsely elevated Potassium levels. ??For accurate Potassium quantif ication in these patients send serum separator tube (gold top) for subsequent determinations. ??Contact the Clinical Chemistry Laboratory if there are any qu estions. Chloride 107 98 - 107 mmol/L [facility] LABORATORY CO2 23 22 - 31 mmol/L [facility] LABORATORY Anion Gap 10 5 - 15 mmol/L [facility] LABORATORY Calcium 9.1 8.5 - 10.5 mg/dL [facility] LABORATORY Estimated GFR 86 >=60 mL/min/1.73 m?? [facility] LABORATORY Comment: This patient's estimated GFR [...] Organization Address City/State/Z[place] [address] EKG 12 Lead (05/31/2022 10:11 AM EDT) Component Value Ref Range Test Analysis Performed Pathologis t Method Time At Signature Ventricular rate 106 BPM MUSE SYSTEM QRS Duration 122 ms MUSE SYSTEM Q-T Interval 368 ms MUSE SYSTEM QTC Calculated 488 ms MUSE SYSTEM (Bezet) Calculated R [place] -43 degrees MUSE SYSTEM Calculated T [place] 109 degrees MUSE SYSTEM INTERPRETATION Atrial fibrillation [...] erpretation Confirmed by fellow MD Mckeon Benjamin ([id number]) on 022 8:36:21 PM Confirmed by MD [...] (Lidoderm) 5% patch 2 patch(Linked Group 1) 3117 (Patch Applied - Provider: Raven Barbour RN [...] - Less than 0.1 international unit/mL: Ad tomato paste maker 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 to med 0-4,000 Units, Intravenous, BOLUS [facility], Starting on Fri05/31/22 at 2014, Until [...]
Routine documented in this encounter Care Teams Operating System Designer Relationship Specialty Start Date End Date Bobby Das MD PCP - General 10/02/[address] [place] [address] [place] [id number] documented as of this encounter
--- OUTSIDE RECORDS SUMMARY | 2022-06-23 03:50 | XMS_ITS | Encounter Summary ---
:1940 [place] [address] Care Team Providers Name Role Phone Bobby Das MD Primary Care Provider Reason for Visit Reason Comments Left Leg Pain Auth/Cert Specialty Diagnoses / Procedures Referred By Contact Refer red To Contact Diagnoses Limb ischemia LLE thrombus Fito Summers MD [facility] D [place] [address] Referral ID Status Reason Start Date Expiration Date Visits Requ ested Visits Authorized [id number] 1 1 Encounter Details Date Type Department Care Team Description 05/20/2022 Surgery Paper Spooler Abundio Mcguire , CARDIAC CATHETERIZATION [facility] [place] [address] CARDIOLOGY [phone] [place], [place] [address] (Wo rk) Social History Tobacco [...] onset Afib who presents in transfer from [facility] with acute limb ischemia [...] emergently went to the OR for L FORMS ANALYSIS MANAGER transverse arteriotomy and primary repair, thromboembolectomy of L SFA/PFA/FORMS ANALYSIS MANAGER, reperfusion venous drainage for 250 cc, and [...] Discharge Condition: Good Discharge to: Home with [address] [address] Future Appointments and Orders Future Appointments and Orders Future Appointments Provider Department Dept Phone 05/23/2022 10:30 AM Loretta Cohen MD Dermatology at [facility] Arrive at: Market Analysis Director [address] [place] [address] 06/07/2022 1:30 PM Gail Rae APRN Vascular Surgery at [facility] Arrive at: Market Analysis Director [address] [phone] 06/13/2022 7:30 AM Edson Lagos [place] Vascular Lab at [facility] Arrive at: Market Analysis Director Area 06/13/2022 8:00 AM Fito Summers MD Vascular Surgery at [facility] Arrive at: Market Analysis Director Area 3V [phone] 06/13/2022 10:00 AM Alan Reid MD Cardiology at [facility] Arrive at: Market Analysis Director Area [phone] Future Orders Complete By Expires Ziopatch 48 Hrs-15 Days [FFP0791 CPT(R)] 05/21/2022 11/20/2022 Process Instructions: Scheduling Instructions: Comments: Questions: Does the patient have a pacemaker? If yes provide HI/LO settings: Apply for 7 or 14 days?: 7 Where will study be performed?: [facility] Clinics JOSSELYN, legs, multiple levels [VAS8 Custom] 06/21/2022 (Approximate) 12/21/2022 Process Instructions: There is no in-house vascular laborer wharf available on weeknights (5pm-8am), weekends, or holidays. IF THIS IS A REQUEST FOR AN EMERGENT STUDY DURING THOSE HOURS, please have the senior provider responsible for the patient page the Vascular Surgery Fellow/Senior Resident specifications checker to discuss options. Scheduling Instructions: Questions: Indication for study/signs & symptoms: ALI s/p L fem cutdown with thromboembolectomy Question to be answered: Perfusion to feet? Please check toe pressure Preferred location?: [facility] Clinics Referral to Cardiology [REF12 Custom] As [...] Koko Zamora for admission to Home Health. [address] [place] [phone] (home) Date of : 1940 Inpatient DOCUMENTATION FOR VNA SERVICES (INCLUDING THOSE PATIENTS WITH MEDICARE COVERAGE REQUIRING HOME VNA SERVICES AND/OR HOSPICE SERVICES) PATIENT'S LOCATION: Koko Zamora [address] [place] [phone] (home) Cell: No relevant phone numbers on file. Dermatology Specialist's Name: Koko In discussion with the attending physician, it is certified that this patient is under their care and that they, or a Nurse Practitioner,Clinical Nurse specialist or Physician Hoop Coiler who is working directly with them, had [...] managing ADL's. HOME HEALTH CARE AGENCY: [facility]. [address] [place] [address] Start of care: Within 24 to 48 [...] obtained from this patient'sPCP: Bobby Das MD [address] [place] [address] [place] [address] All VNA agencies which cover the [...] For any problems or questions please call [phone] For issues on weeknights after 5pm and weekends please call [phone] and ask for the Vascular Fellow specifications checker. JOSEE Santiago Vascular Surgery 05/21/2022 documented in [...] For any problems or questions please call [phone] For issues on weeknights after 5pm and weekends please call [phone] and ask for the Vascular Fellow specifications checker. documented in this encounter Medications at Time [...] 04/12/20 21 (FLONASE) 50 mcg/actuation Nare route [place], Suspension daily as needed. fluorouraciL (EFUDEX) 5 [...] onset Afib who presents in transfer from [facility] with acute limb ischemia [...] status, full code. JOSEE Santiago 05/21/2022 Pager: [phone] Brannon Isaacs, PT - 05/21/2022 10:35 AM [...] plan as stated. Time IN / OUT: 9054-8932 Total Minutes, Physical Therapy: 25 Billing Code: 2 BOSTON Isaacs DPT Pager: [phone] Physical Therapy Inpatient Rehabilitation Department [place] Jean [...] from 05/15/2022 in Intermediate Cardiac Care Unit [facility] Office Visit from 04/17/2021 in Pain and Spine Center at [facility] Weight 79.8 kg (175 lb 14.8 oz) [...] and plan of care per Dr. Mcnamara (graphic design teacher). Please refer to her note above for [...] limb ischemia (thromboembolic) and he is a [place] [facility] sm[facility] (1/2 ppd, recommend nicotine patch). His [...] to Hosp-Admission (Current) from 05/15/2022 in 4 [facility] Office Visit from 04/17/2021 in Pain and Spine Center at [facility] Weight 79.8 kg (175 lb 14.8 oz) [...] findings andplan of care per Dr. Mcnamara (graphic design teacher). Please refer to her note above for [...] a mitral repair in 2000 (not at [facility]) with no CAD at that time. Currently, [...] AF and the first documented HR at [facility] was 125 bpm (presented to an an [...] onset Afib who presents in transfer from [facility] with acute limb ischemia [...] Dispo: Floor, dispo planning care management following Dtotie Hill APRN 05/20/2022 Pager: [phone] Laney Atkins RN - 05/20/2022 1:14 AM EDT Pt Koko transferred to room from [facility]. A&Ox4, oriented to room and call [...] onset Afib who presents in transfer from [facility] with acute limb ischemia of the LLE. ?? The patient had sudden pain starting at 630 05/15/22, he presented ARR H where he was placed on heparin. [...] management following Dottie Hill APRN 05/19/2022 Pager: [phone] Emily Sauceda RN - 05/19/2022 6:28 AM EDT OUTCOME EVALUATION NOTE: OUTCOME SUMMARY: Patient AOx4, VSS on RA. Afib on tele. HR controlled w/ PRN metop, given x2. Denies CP, SOB, n/v. See flowsheets for NVC. Dressings to LLE CDI, prevena [place] to groin intact. Voiding to urinal. LBM FOREIGN BANKNOTE TELLER TRADER, patient stating he will maybe try the [...] adequately without difficulty to bedside urinal. LBM FOREIGN BANKNOTE TELLER TRADER. Up to chair this AM with nursing staff. Worked with PT, tolerated well. Diet changed to regular at 1800.Plan is for cardiac cath on Friday. PLAN MOVING FORWARD: Bleeding precautions Pain management neurovascular checks PT/OT clinical laboratory service teacher INDIVIDUALIZED FALL PREVENTION INTERVENTIONS: Patient-specific fall risk [...] onset Afib who presents in transfer from [facility] with acute limb ischemia [...] mL Intravenous BID ??? PHENobarbitaL 0.12 mg/kg/dose ([place]) Oral BID ??? thiamine 100 mg Oral [...] management following Dottie Hill APRN 05/18/2022 Pager: [phone] Brannon Isaacs, PT - 05/18/2022 10:00 AM [...] IR Biopsy Spine 07/20/2019 Bobby Marshall MD [facility] INTERVENTIONL RAD ??? IR VERTEBROPLASTY LUMBAR MULTIPLE LEVELS 07/20/2019 IR Vertebroplasty Lumbar Multiple Levels 07/20/2019 Bobby Marshall MD [facility] INTERVENTIONL RAD ??? IR VERTEBROPLASTY THORACIC SINGLE LEVEL 10/25/2020 IR Vertebroplasty Thoracic Single Level 10/25/2020 Matt Chisholm MD [facility] INTERVENTIONL RAD ??? PRO EMBLC/THRMBC FEMORAL POPLITEAL AORTO-ILIAC ARTERY Left 05/15/2022 EMBOLECTOMY OR THROMBECTOMY, FEMOROPOPLITEAL, AORTOILIAC ARTERY BY LEG INCISION (WRVU 19.48) performed by Fito Summers MD at [facility] MAIN OR Social History: Pt lives [...] in this evaluation. Time IN / OUT: 4570-4052 Total Minutes, Physical Therapy: 30 Billing Code: Basilio Isaacs, PT Pager: [phone] Physical Therapy Inpatient Rehabilitation Department Emily Sauceda RN - 05/18/2022 4:34 AM EDT OUTCOME EVALUATION NOTE: OUTCOME SUMMARY: Patient AOx4, VSS on 2LNC. Afib on tele. HR above 120, MD aware, PRN IV metop given x1, HR returned to 90's-low 100's. Denies CP, SOB, n/v. See flowsheets for NVC. Dressings to LLE CDI, prevena [place] to groin intact. Voiding to urinal. LBM FOREIGN BANKNOTE TELLER TRADER. Heparin gtt therapeutic. Pain controlled. Patient sleeping [...] adequately without difficulty to bedside urinal. LBM FOREIGN BANKNOTE TELLER TRADER. Patient not OOB this shift. Currently NPO awaitingprocedure in roofing laborer. PLAN MOVING FORWARD: Bleeding precautions Pain management neurovascular checks PT/OT NPO for roofing laborer INDIVIDUALIZED FALL PREVENTION INTERVENTIONS: Patient-specific fall [...] the Emergency Department as a transfer from [facility] with left lower extremity limb ischemia. He went to [facility] and was startedon heparin and transferred to [facility] for evaluation by vascular surgery [...] he will will be going to the roofing laborer for evaluation. Will defer PT eval at present but will see as ordered post cardiac catheritizaton. Social Hx:Pt lives with his Ursula in [place], [place] in a 2 level home in [...] WBAT LLE LISBET HERMAN PT Pager # [phone] In-Pt Rehab Medicine Dottie Hill APRN - 05/17/2022 7:42 AM EDT Vascular Surgery Progress Note Koko Zamroa is a 81 y.o. male with w new onset Afib who presents in transfer from [facility] with acute limb ischemia [...] mL Intravenous BID ??? PHENobarbitaL 0.24 mg/kg/dose ([place]) Oral BID Followed by ??? [START ON 05/18/2022] PHENobarbitaL 0.12 mg/kg/dose ([place]) Oral BID ??? thiamine 100 mg Oral [...] management following Dottie Hill APRN 05/17/2022 Pager: [phone] Sary Dos Santos, RN - 05/17/2022 12:16 [...] onset Afib who presents in transfer from [facility] with acute limb ischemia [...] mL Intravenous BID ??? PHENobarbitaL 0.48 mg/kg/dose ([place]) Oral BID Followed by ??? [START ON 05/17/2022] PHENobarbitaL 0.24 mg/kg/dose ([place]) Oral BID Followed by ??? [START ON 05/18/2022] PHENobarbitaL 0.12 mg/kg/dose ([place]) Oral BID ??? thiamine 100 mg Oral [...] management following Edward Rodríguez MD 05/16/2022 Pager: [phone] Sary Dos Santos RN - 05/16/2022 12:52 [...] met 2129 Hand off to DION Ramirez lima documented in this encounter H&P Notes Kerry [...] onset Afib who presents in transfer from [facility] with acute limb ischemia [...] IR Biopsy Spine 07/20/2019 Bobby Marshall MD [facility] INTERVENTIONL RAD ??? IR VERTEBROPLASTY LUMBAR MULTIPLE LEVELS 07/20/2019 IR Vertebroplasty Lumbar Multiple Levels 07/20/2019 Bobby Marshall MD [facility] INTERVENTIONL RAD ??? IR VERTEBROPLASTY THORACIC SINGLE LEVEL 10/25/2020 IR Vertebroplasty Thoracic Single Level 10/25/2020 Matt Chisholm MD [facility] INTERVENTIONL RAD Social Hx: Social History [...] Refill ??? fluticasone propionate (FLONASE) 50 mcg/actuation [place], Suspension as needed. ??? fluorouraciL (EFUDEX) 5 [...] and consented. Tim Chicas MD 05/15/2022 Pager: [phone] documented in this encounter ED Notes Lc Harris PA - 05/15/2022 1:20 PM EDT ED Provider Note HPI: Koko Zamora is a 81 y.o. male with history of atrial fibrillation not on anticoagulation, and GI bleeding who presents to the Emergency Department as a transfer from [facility] with left lower extremity limb ischemia. Patient says that the symptoms started roughly 630 this morning when he developed severe pain in his left lower extremity. He went to [facility] and was started on heparin and transferred to [facility] for evaluation by vascular surgery. [...] lower extremity earlier today and went to [facility] where it was determined that he had ischemia of the left lower extremity. Vascular surgery [facility] was contacted and he was transferred [...] orders before pt. Arrival. Pt. Arrived at [facility] by EMS at 1150, vascular team at [...] in an outpatient cardiac rehabilitation program at [facility] was discussed. Patient agrees to a referral to this program. Timing will depend on his recovery from Vascular surgery. He is going home w/VNA PT. I gave him the brochure for the program at [facility] for future reference. Care [...] information for follow-up Home Health [facility] H[facility], [place] [address] [place] [address] Transportation: family or friend will provide Functional [...] Type: *No Product type* / Secondary Insurance: [facility] Prescription Coverage: Yes This plan was formulated with input from patient and team. All are in agreement with plan. IP RS has communicated with [place] - for initial IMM. Shawn López RN (Jonas) RN/CM - Cellphone: [phone] Pager: [phone] Covering Service RN/CM Plan of Care - [...] catheterization, transferred in hospital bed accompanied by Paper Spooler RN, remains on telemetry monitoring. Heparin gtt [...] Type: *No Product type* / Secondary Insurance: [facility] Last Physical Therapy Recommendation: home with home health, home with supervision with None Last Occupational Therapy Recommendation: with Plan for discharge is: Home w/ Services Outpatient Agency/Support Group Needs: None Home Health Services: Registered Nurse, Physical Therapy, Occupational Therapy Agency Referrals: I have met with the patient to: ?? discuss discharge planning needs. ?? provide the [facility], Office of Care Management letter from the Print Line Supervisor pertaining to rehab referrals. ?? provide a letter describing our affiliations within the [facility] and educate about their right to choose where referrals are sent. ?? provide a list of Home Health Agencies / Durable Medical Equipment vendors which serve their preferred geographic area. ?? provided patient with [facility] Star Quality Rating handout. They have requested referrals to: [facility] [employer] [address] [place] [address] Note routed to a Program Lead who will communicate referrals to facilities and provide any required information. Transportation: family or friend will provide Barriers to discharge: None Plan going forward: Patient is going for a cardiac cath today and plan will come from there. Patientwas recently seen by PT and they recommend VNA at time of discharge. [facility] was routed and pendedat this time. Care Management will continue to follow and assist with discharge planning and coordination of care as indicated. Anticipated Date of Discharge: 05/21/2022 Nataly RICHMOND RN Phone: [phone] Pager: [phone] Plan of Care - Laney Atkins RN [...] from the original note were not included. [facility] [place] [phone] INPATIENT CARDIOLOGY CONSULT NOTE Date of Consultation: 05/17/2022 Admit Date: 05/15/2022 Hospital Day 2 days Reason for Consult: New afib Active Problems: Active Hospital Problems Diagnosis Limb ischemia Resolved Hospital Problems No resolved problems to display. HPI: Koko Zamora is a 81 y.o. male with a PMHx significant for MVP (s/p MV repair 2000), tobacco use, HLD, who presented to [facility] from OSH on 05/15 with acute limb ischemia of LLE and was found to be in atrial fibrillation. Patient had sudden onset LLE pain on 05/15 and presented to [facility], where he was started on heparin and transferred to [facility]. Upon arrival to [facility], patient was in atrial fib with RVR [...] IR Biopsy Spine 07/20/2019 Bobby Marshall MD [facility] INTERVENTIONL RAD IR VERTEBROPLASTY LUMBAR MULTIPLE LEVELS 07/20/2019 IR Vertebroplasty Lumbar Multiple Levels 07/20/2019 Bobby Marshall MD [facility] INTERVENTIONL RAD IR VERTEBROPLASTY THORACIC SINGLE LEVEL 10/25/2020 IR Vertebroplasty Thoracic Single Level 10/25/2020 Matt Chisholm MD [facility] INTERVENTIONL RAD PRO EMBLC/THRMBC FEMORAL POPLITEAL AORTO-ILIAC ARTERY Left 05/15/2022 EMBOLECTOMY OR THROMBECTOMY, FEMOROPOPLITEAL, AORTOILIAC ARTERY BY LEG INCISION (WRVU 19.48) performed by Fito Summers MD at [facility] MAIN OR Allergies Allergen Reactions Aspirin Other (See Comments) GI bleed Out-Patient Medications: Medications Prior to Admission Medication Sig Dispense Refill Last Dose fluorouraciL (EFUDEX) 5 % Cream daily. CRESTOR 40 mg Tablet Take 40 mg by mouth daily. fluticasone propionate (FLONASE) 50 mcg/actuation [place], Suspension as needed. ascorbic acid, vitamin C, [...] 5 mL Intravenous BID PHENobarbitaL 0.24 mg/kg/dose ([place]) Oral BID Followed by [START ON 05/18/2022] PHENobarbitaL 0.12 mg/kg/dose ([place]) Oral BID thiamine 100 mg Oral Daily folic acid 1,000 mcg Oral Daily multivitamin with minerals 1 tablet Oral Daily heparin (porcine) infusion 1,200 Units/hr (05/17/22 9126) Family History: No family history on file. [...] ED to Hosp-Admission (Current) from 05/15/[address] [place] [address] Office Visit from 04/17/2021 in Pain and Spine Center at [facility] Weight 79.8 kg (175 lb 14.8 oz) [...] continue to follow Anne-Marie Larson MD Pager [phone] Clinic: [phone] 05/17/22 6:22 PM Initial Assessments - Ifrah [...] spouse would be surrogate decision maker per [place] surrogate decision making law. (Only good for 180 days) Any patient receiving care at [facility] must abide by [place] law. The hierarchy for surrogate decision making [...] (i) The agent with financial power of dry cleaning manager or a conservator appointed in accordance with [...] raised toilet seat Home Address confirmed as: [address] [place] [phone] Social & Family Supports: All names listed below confirmed with patient as Incorrect. Will notify toni to correct. Wifes address is same as and phone is [phone]. Extended Emergency Contact Information Primary Emergency Contact: Ursula Zamora Address: [address] [place] [address] [address] [place] [address] [facility] Relation: Spouse Current Care Provided by: [...] Type: *No Product type* / Secondary Insurance: [facility] Prescription Coverage: Yes Preferred Pharmacy: [id number] - [place], [place] - [address] [facility] [address] [facility] [place] [address] [facility] - [place], [place] - [address] [facility] [address] [facility] [address] [place] Status: Patient is a : unable to assess Primary Care Provider: Bobby Das MD [phone] Patient/Caregiver Goals of Treatment: to walk again Potential Needs for Transition of Care: none noted per 05/16 IDR Transportation: family will provide Transportation Anticipated: family or friend will provide Concerns to be Addressed: no discharge needs identified Assessment: Patient is admitted to vascular surg service for left lower extremity limb ischemia Plan: Per PT OT recommendations . Has used [employer] in the past. A member of the Care Management team will continue to monitor progress, follow for continuity of care and assist with transition of care planning. Ifrah Bell RN BSN Rougher HelperSpeech Language Pathologist Prn of Care Management Pager [phone] Brief Op Note - Erin Garza MD - 05/15/2022 5:04 PM EDT Brief Operative Note Patient Name: Koko Zamora : [id number] MR#: [id number] Case Date: 05/15/2022 Surgeon: Surgeon(s) and Role: [...] Garza MD - 05/15/2022 2:08 PM EDT [facility] Operative Note Patient Name: Koko Zamora : [id number] MR#: [id number] Case Date: 05/15/2022 Surgeon: Surgeon(s) and Role: [...] Office Visit Vascular Surgery Jing Ghosh APRN [facility] [address] VASCULAR SURGERY [place], [place] [address] (Wo rk) 09/02/2022 Clinical Support Dermatology Thai Lynn MD [facility] [address] JENNY BILLY[place], [place] [address] (Wo rk) 09/02/2022 Procedure visit Dermatology Jace Lynn MD [facility] JENNY [place], [place] [address] (Wo rk) 09/05/2022 Appointment Cardiology Trinity Reid MD [facility] CARDIOLOGY [place], [place] [address] (Wo rk) 09/05/2022 Office Visit Cardiology Trinity Reid MD [facility] CARDIOLOGY [place], [place] [address] (Wo rk) Scheduled Referrals Name [...] Component Value Ref Test Analysis Performed At [facility] Range Method Time Signature VB Text Department: Vascular Surgery Lab VASCUBASE Report Patient: [id number] (KOKO ZAMORA) CPT: 92486 Referring Physician: FITO SUMMERS ?? Phone: Indications: s/p L FORMS ANALYSIS MANAGER endart. Diabetes mellitus: no Findings: Right ?Pressure [...] EDT) athologist Signature Heparin UFH 0.42 IU/mL [facility] LABORATORY Comment: Heparin (anti-Xa) levels should [...] Organization Address City/State/ZIP [place] [address] Differential, Automated (05/21/2022 6:15 AM EDT) athologist Signature Neutrophils % 58.8 % [facility] LABORATORY Neutr Abs (ANC) 3.97 1.70 - [facility] 6.10 [facility] x10(3)/[facility] LABORATORY Lymphocytes % 25.2 % [facility] LABORATORY Lymphocytes Abs 1.7 0.9 - 3.2 [facility] x10(3)/[facility] LABORATORY Monocytes % 12.9 % [facility] LABORATORY Monocyte Abs 0.9 0.3 - 0.9 [facility] x10(3)/[facility] LABORATORY Eosinophils % 2.1 % [facility] LABORATORY Eosinophils Abs 0.1 0.0 - 0.4 [facility] x10(3)/[facility] LABORATORY Basophils % 0.4 % [facility] LABORATORY Basophils Abs 0.0 0.0 - 0.1 [facility] x10(3)/[facility] LABORATORY Immature Gran % 0.60 % [facility] LABORATORY Comment: Immature granulocytes(IG's)percentage an d absolute count will include metamyelocytes, myelocytes, and promyelo cytes. Blood smears from CBCs yielding IG's will be scanned manually for concor danlara. If this scan disagrees with the automated IG or if promyelocytes are not ed, a manual differential will be performed. Rain Gran Abs 0.04 0.00 - 0.04 x10(3)/[facility] LABORATORY Specimen Anatomical Collection Method Collection Time Receive d Time (Source) Location / / Volume Laterality Blood 05/21/2022 6:15 AM 6:38 EDT AM EDT Resulting Agency Comment Spec In Lab Edward Rodríguez MD HEMATOLOGY ORDERABLES Performing Organization Address City/State/ZIP Code Phon e Number [place] [id number] (ABNORMAL) Hemogram (05/21/2022 6:15 AM EDT) [facility] gist Method Time Signature WBC 6.8 4.0 - 9.5 [facility] x10(3)/[facility] LABORATORY RBC 3.59 (L) 4.58 - [facility] 5.54 [facility] x10(6)/[facility] LABORATORY Hemoglobin 11.8 (L) 13.7 - [facility] g/dL [facility] LABORATORY Hematocrit 34.5 (L) 40.5 - [facility] 48.5 % [facility] LABORATORY MCV 96.1 (H) 82.9 [facility] [facility] LABORATORY MCH 32.9 (H) 27.5 - [facility].1 pg [facility] LABORATORY MCHC 34.2 32.0 - [facility] 35.7 g/dL [facility] LABORATORY Platelets 198 145 - 357 [facility] x10(3)/[facility] LABORATORY RDWSD 44.9 36.0 - [facility] 45.[address] [facility] LABORATORY RDWCV 12.6 11.4 - [facility] 13.8 % [facility] LABORATORY MPV 10.0 7.6 - 12.9 [facility] LABORATORY nRBC % Auto 0.3 % [facility] LABORATORY nRBC Abs Auto 0.020 (H) 0.000 - [facility] HAG[place] 0.000 [facility] x10(3)/[facility] LABORATORY Specimen Anatomical Collection Method Collection Time Receive d Time (Source) Location / / Volume Laterality Blood 05/21/2022 6:15 AM 2 6:38 EDT AM EDT Resulting Agency Comment Spec In Lab Edward Rodríguez MD HEMATOLOGY ORDERABLES Performing Organization Address City/State/ZIP Code [place] [address] EKG 12 Lead (05/20/2022 7:04 PM EDT) Component Value Ref Range Test Analysis Performed Pathologis t Method Time At Signature Ventricular rate 101 BPM MUSE SYSTEM QRS Duration 116 ms MUSE SYSTEM Q-T Interval 378 ms MUSE SYSTEM QTC Calculated 490 ms MUSE SYSTEM (Bezet) Calculated R [place] -53 degrees MUSE SYSTEM Calculated T [place] 101 degrees MUSE SYSTEM INTERPRETATION Atrial fibrillation [...] SYSTEM - 05/20/2022 7:09 PM ED T ?[facility] ? Cardiac Cathete rization/Intervention Report ? Patient Name: Zamora, Koko Sullivan. ? Procedure Date: 05/20/2022 ? A #: [id number] ? Primary Physician: Abundio Servin ? Case #: [id number] ? File Name: [id number] ? Catheterization Order Number: [id number] ? [facility] ? Final Report [place], [place] ? Patient Name: ? Koko Sullivan. Klarissa uson ? ID#: ?[id number] ? : ?1940 ? Procedure Date: ? [...] procedure was Urgent. The indication for ?the roofing laborer visit is cardiomyo nita. Chest pain [...] ?3.5 guiding catheter and a 3.[address] [facility] [place] [address] ??20 Mhz. ??Imaging ?was successful. ??Image [...] premounted 2. 75 x 30 mm Rudy Winchester (AMPARO) was deployed ? with a maximum [...] require ?modification of this regimen. C onsult [facility] Interventional Cardiology for ?questions. ?The 1 year [...] 123 65 - 199 [facility] mg/dL [facility] LABORATORY Comment: Supplemental ranges: <140 mg/dL before meals <180 mg/dL all other times of the day Specimen Anatomical Collection Method Collection Time Receive d Time (Source) Location / / Volume Laterality Blood 05/20/2022 5:42 PM 5:42 EDT PM EDT Fito Summers MD POINT OF CARE TEST ORDERABLE S Performing Organization Address City/State/ZIP Code Phon [place] [address] (ABNORMAL) BMP w/fasting Glucose (05/20/2022 10:50 AM EDT) P athologist Signature Glucose 152 (H) 65 - 99 [facility] Fasting mg/dL [facility] LABORATORY Comment: ?Fasting* Glucose Interpretive C [...] of Diabetes Mellitus, Position Statement from the [employer]. ??Diabete s Care, Volume 33, Supplement 1, Nov 2009 BUN 11 10 - 20 mg/dL [facility] LABORATORY Creatinine 0.63 (L) 0.80 - 1.50 mg/dL [facility] LABORATORY Sodium 137 135 - 145 mmol/L [facility] LABORATORY Potassium 3.6 3.5 - 5.0 mmol/L [facility] LABORATORY Comment: Please note: ??Patients with WBC >100,00 0 may have falsely elevated Potassium levels. ??For accurate Potassium quantif ication in these patients send serum separator tube (gold top) for subsequent determinations. ??Contact the Clinical Chemistry Laboratory if there are any qu estions. Chloride 103 98 - 107 mmol/L [facility] LABORATORY CO2 24 22 - 31 mmol/L [facility] LABORATORY Anion Gap 10 5 - 15 mmol/L [facility] LABORATORY Calcium 8.7 8.5 - 10.5 mg/dL [facility] LABORATORY Estimated GFR 97 >=60 mL/min/1.73 m?? [facility] LABORATORY Comment: This patient's estimated GFR [...] Summers MD CHEMISTRY ORDERABLES Performing Organization Address City/[facility]/ZIP Code Phon e Number [address] Heparin (unfractionated) Level (05/20/2022 5:02 AM EDT) P athologist Signature Heparin UFH 0.57 IU/mL [facility] LABORATORY Comment: Heparin (anti-Xa) levels should [...] Summers MD HEMATOLOGY ORDERABLES Performing Organization Address City/[facility]/ZIP Code Phon e Number [address] (ABNORMAL) Differential, Automated (05/20/2022 5:02 AM EDT) Patholo gist Method Time Signature Neutrophils % 58.1 % [facility] LABORATORY Neutr Abs (ANC) 4.52 1.70 - [facility] 6.10 [facility] x10(3)/[facility] LABORATORY Lymphocytes % 24.1 % [facility] LABORATORY Lymphocytes Abs 1.9 0.9 - 3.2 [facility] x10(3)/[facility] LABORATORY Monocytes % 13.8 % [facility] LABORATORY Monocyte Abs 1.1 (H) 0.3 - 0.9 [facility] x10(3)/[facility] LABORATORY Eosinophils % 2.6 % [facility] LABORATORY Eosinophils Abs 0.2 0.0 - 0.4 [facility] x10(3)/[facility] LABORATORY Basophils % 0.8 % [facility] LABORATORY Basophils Abs 0.1 0.0 - 0.1 [facility] x10(3)/[facility] LABORATORY Immature Gran % 0.60 % [facility] LABORATORY Comment: Immature granulocytes(IG's)percentage an d absolute count will include metamyelocytes, myelocytes, and promyelo cytes. Blood smears from CBCs yielding IG's will be scanned manually for concor dance. If this scan disagrees with the automated IG or if promyelocytes are not ed, a manual differential will be performed. Rain Gran Abs 0.05 (H) 0.00 - 0.04 x10(3)/[facility] LABORATORY Specimen Anatomical Collection Method Collection Time Receive d Time (Source) Location / / Volume Laterality Blood 05/20/2022 5:02 AM 5:19 EDT AM EDT Resulting Agency Comment Spec In Lab Edward Rodríguez MD HEMATOLOGY ORDERABLES Performing Organization Address City/State/ZIP Code [place] [address] (ABNORMAL) Hemogram (05/20/2022 5:02 AM EDT) Analysis Performed At Patho logist Time Signature WBC 7.8 4.0 - 9.5 [facility] x10(3)/[facility] LABORATORY RBC 3.53 (L) 4.58 - [facility] 5.54 [facility] x10(6)/[facility] LABORATORY Hemoglobin 11.4 (L) 13.7 [facility] 16.5 g/dL [facility] LABORATORY Hematocrit 34.3 (L) 40.5 - [facility] 48.5 % [facility] LABORATORY MCV 97.2 (H) 82.9 - [facility] 93.1 fL [facility] LABORATORY MCH 32.3 (H) 27.5 [facility] 32[facility]1 pg [facility] LABORATORY MCHC 33.2 32.0 - [facility] 35.7 g/dL [facility] LABORATORY Platelets 181 145 - 357 [facility] x10(3)/[facility] LABORATORY RDWSD 46.4 (H) 36.0 - [facility] 45.[address] [facility] LABORATORY RDWCV 13.0 11.4 - [facility] 13.8 % [facility] LABORATORY MPV 10.4 7.6 - 12.9 [facility] LABORATORY nRBC % Auto 0.0 % [facility] LABORATORY nRBC Abs Auto 0.000 0.000 - [facility] 0.000 [facility] x10(3)/[facility] LABORATORY Specimen Anatomical Collection Method Collection Time Receive d Time (Source) Location / / Volume Laterality Blood 05/20/2022 5:02 AM 2 5:19 EDT AM EDT Resulting Agency Comment Spec In Lab Edward Rodríguez MD HEMATOLOGY ORDERABLES Performing Organization Address City/State/[place] [address] Heparin (unfractionated) Level (05/19/2022 3:26 AM EDT) P athologist Signature Heparin UFH 0.59 IU/mL [facility] LABORATORY Comment: Heparin (anti-Xa) levels should [...] Organization Address City/State/ZIP Code Phon e Number [address] (ABNORMAL) Differential, Automated (05/19/2022 3:26 AM EDT) [facility] Method Time Signature Neutrophils % 62.1 % [facility] LABORATORY Neutr Abs (ANC) 4.59 1.70 - [facility] 6.10 [facility] x10(3)/[facility] LABORATORY Lymphocytes % 22.1 % [facility] LABORATORY Lymphocytes Abs 1.6 0.9 - 3.2 [facility] x10(3)/[facility] LABORATORY Monocytes % 13.5 % [facility] LABORATORY Monocyte Abs 1.0 (H) 0.3 - 0.9 [facility] x10(3)/[facility] LABORATORY Eosinophils % 1.3 % [facility] LABORATORY Eosinophils Abs 0.1 0.0 - 0.4 [facility] x10(3)/[facility] LABORATORY Basophils % 0.5 % [facility] LABORATORY Basophils Abs 0.0 0.0 - 0.1 [facility] x10(3)/[facility] LABORATORY Immature Gran % 0.50 % [facility] LABORATORY Comment: Immature granulocytes(IG's)percentage an d absolute count will include metamyelocytes, myelocytes, and promyelo cytes. Blood smears from CBCs yielding IG's will be scanned manually for concor dance. If this scan disagrees with the automated IG or if promyelocytes are not ed, a manual differential will be performed. Rain Gran Abs 0.04 0.00 - 0.04 x10(3)/[facility] LABORATORY Specimen Anatomical Collection Method Collection Time Receive d Time (Source) Location / / Volume Laterality Blood 05/19/2022 3:26 AM 3:59 EDT AM EDT Resulting Agency Comment Spec In Lab Edward Rodríguez MD HEMATOLOGY ORDERABLES Performing Organization Address City/State/ZIP Code Phon e Number [address] (ABNORMAL) Hemogram (05/19/2022 3:26 AM EDT) Analysis Performed At Patho logist Time Signature WBC 7.4 4.0 - 9.5 [facility] x10(3)/[facility] LABORATORY RBC 3.74 (L) 4.58 - [facility] [place] 5.54 [facility] x10(6)/[facility] LABORATORY Hemoglobin 12.1 (L) 13.7 - [facility] 16.5 g/dL [facility] LABORATORY Hematocrit 36.4 (L) 40.5 - [facility] 48.5 % [facility] LABORATORY MCV 97.3 (H) 82.9 - [facility] 93.[address] [facility] LABORATORY MCH 32.4 (H) 27.5 - [facility] 32.1 pg [facility] LABORATORY MCHC 33.2 32.0 - [facility] 35.7 g/dL [facility] LABORATORY Platelets 168 145 - 357 [facility] x10(3)/[facility] LABORATORY RDWSD 46.9 (H) 36.0 - [facility] 45.[address] [facility] LABORATORY RDWCV 13.0 11.4 - [facility] 13.8 % [facility] LABORATORY MPV 10.5 7.6 - 12.9 [facility] LABORATORY nRBC % Auto 0.0 % [facility] LABORATORY nRBC Abs Auto 0.000 0.000 - [facility] 0.000 [facility] x10(3)/[facility] LABORATORY Specimen Anatomical Collection Method Collection Time Receive d Time (Source) Location / / Volume Laterality Blood 05/19/2022 3:26 AM 3:59 EDT AM EDT Resulting Agency Comment Spec In Lab Edward Rodríguez MD HEMATOLOGY ORDERABLES Performing Organization Address City/State/ZIP Code [place] [address] TSH (05/18/2022 8:00 PM EDT) P athologist Signature TSH 2.27 0.27 - 4.[address] [address] [facility] mcIU/mL [facility] LABORATORY Comment: Reference Interval (mcIU/mL): Females: ??First Trimester: 0.23-3.88 ??Second Trimester: 0.22-3.90 ??Third Trimester: 0.44-4.66 Specimen Anatomical Collection Method Collection Time Receive d Time (Source) Location / / Volume Laterality Blood 05/18/2022 8:00 PM 8:06 EDT PM EDT Resulting Agency Comment Spec In Lab Fito Summers MD CHEMISTRY ORDERABLES Performing Organization Address City/State/[place] [address] (ABNORMAL) Differential, Automated (05/18/2022 3:34 AM EDT) [facility] Method Time Signature Neutrophils % 67.2 % [facility] LABORATORY Neutr Abs (ANC) 5.89 1.70 - [facility] 6.10 [facility] x10(3)[facility] LABORATORY Lymphocytes % 17.1 % [facility] LABORATORY Lymphocytes Abs 1.5 0.9 - 3.2 [facility] x10(3)/[facility] LABORATORY Monocytes % 13.6 % [facility] LABORATORY Monocyte Abs 1.2 (H) 0.3 - 0.9 [facility] x10(3)/[facility] LABORATORY Eosinophils % 1.0 % [facility] LABORATORY Eosinophils Abs 0.1 0.0 - 0.4 [facility] x10(3)/[facility] LABORATORY Basophils % 0.6 % [facility] LABORATORY Basophils Abs 0.0 0.0 - 0.1 [facility] x10(3)/[facility] LABORATORY Immature Gran % 0.50 % [facility] LABORATORY Comment: Immature granulocytes(IG's)percentage an d absolute count will include metamyelocytes, myelocytes, and promyelo cytes. Blood smears from CBCs yielding IG's will be scanned manually for concor dance. If this scan disagrees with the automated IG or if promyelocytes are not ed, a manual differential will be performed. Rain Gran Abs 0.04 0.00 - 0.04 x10(3)/[facility] LABORATORY Specimen Anatomical Collection Method Collection Time Receive d Time (Source) Location / / Volume Laterality Blood 05/18/2022 3:34 AM 2 3:48 EDT AM EDT Resulting Agency Comment Spec In Lab Edward Rodríguez MD HEMATOLOGY ORDERABLES Performing Organization Address City/State/[place] [address] (ABNORMAL) Hemogram (05/18/2022 3:34 AM EDT) Analysis Performed At Patho logist Time Signature WBC 8.8 4.0 - 9.5 [facility] x10(3)/[facility] LABORATORY RBC 3.45 (L) 4.58 - [facility] 5.54 [facility] x10(6)/[facility] LABORATORY Hemoglobin 11.2 (L) 13.7 - [facility] 16.5 g/dL [facility] LABORATORY Hematocrit 33.0 (L) 40.5 - [facility] 48.5 % [facility] LABORATORY MCV 95.7 (H) 82.9 - [facility] 93.[address] [facility] LABORATORY MCH 32.5 (H) 27.5 - [facility] 32.1 pg [facility] LABORATORY MCHC 33.9 32.0 [facility] g/dL [facility] LABORATORY Platelets 130 (L) 145 - 357 [facility] x10(3)/[facility] LABORATORY RDWSD 46.2 (H) 36.0 - [facility] 45.[address] [facility] LABORATORY RDWCV 13.2 11.4 - [facility] 13.8 % [facility] LABORATORY MPV 10.8 7.6 - 12.9 [facility] LABORATORY nRBC % Auto 0.0 % [facility] LABORATORY nRBC Abs Auto 0.000 0.000 - [facility] 0.000 [facility] x10(3)/[facility] LABORATORY Specimen Anatomical Collection Method Collection Time Receive d Time (Source) Location / / Volume Laterality Blood 05/18/2022 3:34 AM 2 3:48 EDT AM EDT Resulting Agency Comment Spec In Lab Edward Rodríguez MD HEMATOLOGY ORDERABLES Performing Organization Address City/[facility]/ZIP Code [place] [address] Heparin (unfractionated) Level (05/18/2022 3:34 AM EDT) athologist Signature Heparin UFH 0.59 IU/mL [facility] LABORATORY Comment: Heparin (anti-Xa) levels should [...] Summers MD HEMATOLOGY ORDERABLES Performing Organization Address City/[facility]/ZIP Code [place] [address] Magnesium (05/17/2022 3:33 AM EDT) athologist Signature Magnesium 0.76 0.69 - 1.07 [facility] mmol/L [facility] LABORATORY Specimen Anatomical Collection Method Collection Time Receive d Time (Source) Location / / Volume Laterality Blood Venous Draw / 05/17/2022 3:33 AM 05/17/20 4:05 Unknown EDT AM EDT Resulting Agency Comment Spec In Lab Dottie Hill APRN CHEMISTRY ORDERABLES Performing Organization Address City/[facility]/ZIP Code [place] [address] (ABNORMAL) Basic Metabolic Panel (non-fasting) (05/17/2022 3:33 AM EDT) P athologist Signature Glucose Lvl 158 65 - 199 [facility] mg/dL [facility] LABORATORY Comment: Diabetes: >=200 mg/dL plus symp toms BUN 12 10 - 20 mg/dL [facility] LABORATORY Creatinine 0.74 (L) 0.80 - 1.50 mg/dL [facility] LABORATORY Sodium 137 135 - 145 mmol/L [facility] LABORATORY Potassium 3.5 3.5 - 5.0 mmol/L [facility] LABORATORY Comment: Please note: ??Patients with WBC >100,00 0 may have falsely elevated Potassium levels. ??For accurate Potassium quantif ication in these patients send serum separator tube (gold top) for subsequent determinations. ??Contact the Clinical Chemistry Laboratory if there are any qu estions. Chloride 102 98 - 107 mmol/L [facility] LABORATORY CO2 25 22 - 31 mmol/L [facility] LABORATORY Anion Gap 10 5 - 15 mmol/L [facility] LABORATORY Calcium 8.4 (L) 8.5 - 10.5 mg/dL [facility] LABORATORY Estimated GFR 92 >=60 mL/min/1.73 m?? [facility] LABORATORY Comment: This patient's estimated GFR [...] Organization Address City/State/[place] [address] (ABNORMAL) Differential, Automated (05/17/2022 3:33 AM EDT) [facility] Method Time Signature Neutrophils % 65.5 % [facility] LABORATORY Neutr Abs (ANC) 6.84 (H) 1.70 - [facility] 6.10 [facility] x10(3)/[facility] LABORATORY Lymphocytes % 19.7 % [facility] LABORATORY Lymphocytes Abs 2.1 0.9 - 3.2 [facility] x10(3)/[facility] LABORATORY Monocytes % 13.1 % [facility] LABORATORY Monocyte Abs 1.4 (H) 0.3 - 0.9 [facility] x10(3)/[facility] LABORATORY Eosinophils % 0.6 % [facility] LABORATORY Eosinophils Abs 0.1 0.0 - 0.4 [facility] x10(3)/[facility] LABORATORY Basophils % 0.6 % [facility] LABORATORY Basophils Abs 0.1 0.0 - 0.1 [facility] x10(3)/[facility] LABORATORY Immature Gran % 0.50 % [facility] LABORATORY Comment: Immature granulocytes(IG's)percentage an d absolute count will include metamyelocytes, myelocytes, and promyelo cytes. Blood smears from CBCs yielding IG's will be scanned manually for concor dance. If this scan disagrees with the automated IG or if promyelocytes are not ed, a manual differential will be performed. Rain Gran Abs 0.05 (H) 0.00 - 0.04 x10(3)/[facility] LABORATORY Specimen Anatomical Collection Method Collection Time Receive d Time (Source) Location / / Volume Laterality Blood 05/17/2022 3:33 AM 3:53 EDT AM EDT Resulting Agency Comment Spec In Lab Edward Rodríguez MD HEMATOLOGY ORDERABLES Performing Organization Address City/[facility]/[place] [address] (ABNORMAL) Hemogram (05/17/2022 3:33 AM EDT) Analysis Performed At Patho logist Time Signature WBC 10.4 (H) 4.0 - 9.5 [facility] x10(3)/[facility] LABORATORY RBC 3.72 (L) 4.58 - [facility] 5.54 [facility] x10(6)/[facility] LABORATORY Hemoglobin 12.0 (L) 13.7 - [facility] 16.5 g/dL [facility] LABORATORY Hematocrit 36.4 (L) 40.5 - [facility] 48.5 % [facility] LABORATORY MCV 97.8 (H) 82.9 [facility] [facility] LABORATORY MCH 32.3 (H) 27.5 - [facility] 32.1 pg [facility] LABORATORY MCHC 33.0 32.0 - [facility] 35.7 g/dL [facility] LABORATORY Platelets 149 145 - 357 [facility] x10(3)/[facility] LABORATORY RDWSD 48.7 (H) 36.0 - [facility] 45.[address] [facility] LABORATORY RDWCV 13.5 11.4 - [facility] 13.8 % [facility] LABORATORY MPV 10.6 7.6 - 12.9 [facility] LABORATORY nRBC % Auto 0.0 % [facility] LABORATORY nRBC Abs Auto 0.000 0.000 - [facility] 0.000 [facility] x10(3)/[facility] LABORATORY Specimen Anatomical Collection Method Collection Time Receive d Time (Source) Location / / Volume Laterality Blood 05/17/2022 3:33 AM 3:53 EDT AM EDT Resulting Agency Comment Spec In Lab Edward Rodríguez MD HEMATOLOGY ORDERABLES Performing Organization Address City/State/[place] [address] (ABNORMAL) Urinalysis Microscopic Exam (05/16/2022 11:15 PM EDT) P athologist Signature RBC UA 8 (H) 0 - 3 /HPF [facility] LABORATORY WBC UA 2 0 - 3 /HPF [facility] LABORATORY Specimen Anatomical Collection Method Collection Time Receive d Time (Source) Location / / Volume Laterality Clean Catch 05/16/2022 11:15 05/16/2022 Urine PM EDT 11:30 PM EDT Resulting Agency Comment Spec In Lab Barbie Ashraf MD URINE ORDERABLES Performing Organization Address City/[facility]/ZIP Code [place] [address] (ABNORMAL) Urinalysis with reflex Culture (05/16/2022 11:15 PM EDT) [facility] Method Time Signature Glucose UA Negative Negative [facility] mg/dL [facility] LABORATORY Protein UA Negative Negative [facility] mg/dL [facility] LABORATORY Bilirubin UA Negative Negative [facility] mg/dL [facility] LABORATORY Comment: Clinical correlation required for positi ve Urine Bilirubin results as false positive may occur with some drugs and d rug related products. If a false positive is suspected a serum total bili quarles should be considered if clinically indicated. Urobilinogen UA Normal Normal mg/dL [facility] pH UA 6.0 5.0 - 8.0 [facility] Blood UA Small (A) Negative mg/dL [facility] Ketones UA Trace (A) Negative mg/dL [facility] Nitrite UA Negative Negative [facility] Leukocytes UA Negative Negative [facility] LAB[facility]ORY Appearance UA Clear Clear [facility] Spec Shelby UA 1.021 1.005 - 1.030 [facility] Color UA Yellow Yellow [facility] Culture Reflexed No [facility] Specimen Anatomical Collection Method Collection Time Receive d Time (Source) Location / / Volume Laterality Clean Catch 05/16/2022 11:15 05/16/2022 Urine PM EDT 11:30 PM EDT Resulting Agency Comment Spec In Lab Fito Summers MD URINE ORDERABLES Performing Organization Address City/[facility]/ZIP Code Phon e Number [place] [phone] Heparin (unfractionated) Level (05/16/2022 10:59 PM EDT) P athologist Signature Heparin UFH 0.65 IU/mL [facility] LABORATORY Comment: Specimen drawn more than [...] Organization Address City/State/[place] [address] XR Chest One View [...] who have questions please contact the health day care teacher that requested your imaging first. ? Electronically signed by: Tiffanie George MD , [facility] ([phone]), at 05/16/2022 9:27 PM Narrative 05/16/2022 9:27 PM EDT EXAMINATION: XR [...] ho have questions please contact the health day care teacher that requested your imaging first. Electronically signed by: Tiffanie George MD , [facility] ([phone]), at 05/16/2022 9:27 PM Fito Summers MD IMG DX ORDERABLES EKG 12 Lead (05/16/2022 8:57 PM EDT) Component Value Ref Range Test Analysis Performed Pathologis t Method Time At Signature Ventricular rate 117 BPM MUSE SYSTEM QRS Duration 112 ms MUSE SYSTEM Q-T Interval 346 ms MUSE SYSTEM QTC Calculated 482 ms MUSE SYSTEM (Bezet) Calculated R Napavine -48 degrees MUSE SYSTEM Calculated T Napavine 111 degrees MUSE SYSTEM INTERPRETATION Atrial fibrillation with rapid ventricular response MUSE SYSTEM Left anterior fascicular block Minimal voltage criteria for LVH, may be normal variant ( Allen product ) Nonspecific ST and T wave [...] EDT) athologist Signature Heparin UFH 0.53 IU/mL [facility] LABORATORY Comment: Heparin (anti-Xa) levels should [...] Organization Address City/State/[place] [address] ECHOCARDIOGRAM COMPLETE W CONTRAST (05/16/2022 12:49 PM EDT) athologist Signature EF 28 [facility] Specimen (Source) Anatomical Collection Method Collection Time Re ceived Time Location / / Volume Laterality 05/16/2022 11:22 AM EDT Narrative [facility] - 05/16/2022 1:54 PM EDT ?[facility] ?[address] ? [place] [address] ?Voice: ?Fax: ? Echocardiogram Report Name: KOKO ZAMORA ?Study Date: 05/16/2022 11:22 AM ? Patient Location: [facility] [address] B : 1940 ? Height: 67.5 in ? Account: [id number] Age: 81 yrs ? Weight: 176 lb Gender: Male ?BSA: 1.9 m2 Ordering Physician: FITO SUMMERS Referring Physician: MALI FLORIAN Performed By: Jolene Bernard RDCS Exam Location: [facility]. Interpretation Summary Left ventricle is mildly dilated. [...] and LV systolic dysfunction are new. Procedure Complete-[id number]. Image enhancement Optiso n was used for [...] note might be different from the original. [facility] [address] [place] [address] Voice: Fax: Echocardiogram Report Name: KOKO ZAMORA Study Date: 05/2022 11:22 AM Patient Location: [address] [place] [address] : 1940 Height: 67.5 in Account: [id number] Age: 81 yrs Weight: 176 lb Gender: Male BSA: 1.9 m2 Ordering Physician: FITO SUMMERS Referring Physician: MALI FLORIAN Performed By: Jolene Bernard RDCS Exam Location: [facility]. Interpretation Summary Left ventricle is mildly dilated. 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 The left ventricular ejection f raction is 28% by Gaxoila's biplane. Right ventricular systolic function is m ildly decreased. There is moderate aortic stenosis. The m campos gradient across the aortic valve is 13 mmHg. JUVENAL 1.2 cm2 S/P MV repair for prolapse. There is mil d mitral regurgitation. Compared with the prior TTE of 2, moderate and LV systolic dysfunction are new. Procedure Complete-[id number]. Image enhancement Optiso n was used for [...] (ABNORMAL) Differential, Automated (05/16/2022 3:01 AM EDT) [facility] Method Time Signature Neutrophils % 78.8 % [facility] Neutr Abs (ANC) 9.11 (H) 1.70 - [facility] 6.10 [facility] x10(3)/[facility] L LABORATORY Lymphocytes % 9.4 % [facility] Lymphocytes Abs 1.1 0.9 - 3.2 [facility] x10(3)/[facility] LABORATORY Monocytes % 10.9 % [facility] Monocyte Abs 1.3 (H) 0.3 - 0.9 [facility] x10(3)/[facility] LABORATORY Eosinophils % 0.0 % [facility] Eosinophils Abs 0.0 0.0 - 0.4 [facility] x10(3)/[facility] LABORATORY Basophils % 0.3 % [facility] Basophils Abs 0.0 0.0 - 0.1 [facility] x10(3)/[facility] LABORATORY Immature Gran % 0.60 % [facility] Comment: Immature granulocytes(IG's)percentage an d absolute count will include metamyelocytes, myelocytes, and promyelo cytes. Blood smears from CBCs yielding IG's will be scanned manually for concor dance. If this scan disagrees with the automated IG or if promyelocytes are not ed, a manual differential will be performed. Rain Gran Abs 0.07 (H) 0.00 - 0.04 x10(3)/[facility] LABORATORY Specimen Anatomical Collection Method Collection Time Receive d Time (Source) Location / / Volume Laterality Blood 05/16/2022 3:01 AM 3:36 EDT AM EDT Resulting Agency Comment Spec In Lab Erin Garza MD HEMATOLOGY ORDERABLES Performing Organization Address City/State/[place] [address] (ABNORMAL) Hemogram (05/16/2022 3:01 AM EDT) Analysis Performed At Patho logist Time Signature WBC 11.6 (H) 4.0 - 9.5 [facility] x10(3)/[facility] LABORATORY RBC 3.62 (L) 4.58 [facility] 5.54 [facility] x10(6)/[facility] LABORATORY Hemoglobin 12.0 (L) 13.7 - [facility] 16.5 g/dL [facility] Hematocrit 35.3 (L) 40.5 - [facility] 48.5 % [facility] MCV 97.5 (H) 82.9 - [facility] 93.1 fL [facility] MCH 33.1 (H) 27.5 - [facility] 32.1 pg [facility] MCHC 34.0 32.0 - [facility] 35.7 g/dL [facility] Platelets 151 145 - 357 [facility] x10(3)/[facility] LABORATORY RDWSD 47.6 (H) 36.0 - [facility]AG[facility] 45.[address] [facility] LABORATORY RDWCV 13.3 11.4 - [facility] 13.8 % [facility] MPV 10.5 7.6 - 12.9 [facility] F[facility] LABORATORY nRBC % Auto 0.0 % [facility] nRBC Abs Auto 0.000 0.000 - [facility] 0.000 [facility] x10(3)/[facility] LABORATORY Specimen Anatomical Collection Method Collection Time Receive d Time (Source) Location / / Volume Laterality Blood 05/16/2022 3:01 AM 2 3:36 EDT AM EDT Resulting Agency Comment Spec In Lab Erin Garza MD HEMATOLOGY ORDERABLES Performing Organization Address City/State/ZIP Code Phon e Number [address] Phosphorus (05/16/2022 3:01 AM EDT) P athologist Signature Phosphorus 3.7 2.5 - 4.5 [facility] mg/dL [facility] Specimen Anatomical Collection Method Collection Time Receive d Time (Source) Location / / Volume Laterality Blood 05/16/2022 3:01 AM 2 3:36 EDT AM EDT Resulting Agency Comment Spec In Lab Fito Summers MD CHEMISTRY ORDERABLES Performing Organization Address City/State/ZIP Code Phon e Number [address] Magnesium (05/16/2022 3:01 AM EDT) P athologist Signature Magnesium 0.77 0.69 - 1.07 [facility] mmol/L [facility] Specimen Anatomical Collection Method Collection Time Receive d Time (Source) Location / / Volume Laterality Blood 05/16/2022 3:01 AM 2 3:36 EDT AM EDT Resulting Agency Comment Spec In Lab Fito Summers MD CHEMISTRY ORDERABLES Performing Organization Address City/State/[place] [address] (ABNORMAL) Basic Metabolic Panel (non-fasting) (05/16/2022 3:01 AM EDT) P athologist Signature Glucose Lvl 222 (H) 65 - 199 [facility] mg/dL [facility] Comment: Diabetes: >=200 mg/dL plus symp toms BUN 12 10 - 20 mg/dL [facility] Creatinine 0.66 (L) 0.80 - 1.50 mg/dL [facility] Sodium 138 135 - 145 mmol/L [facility] Potassium 4.5 3.5 - 5.0 mmol/L [facility] Comment: Please note: ??Patients with WBC >100,00 0 may have falsely elevated Potassium levels. ??For accurate Potassium quantif ication in these patients send serum separator tube (gold top) for subsequent determinations. ??Contact the Clinical Chemistry Laboratory if there are any qu estions. Chloride 108 (H) 98 - 107 mmol/L [facility] CO2 22 22 - 31 mmol/L [facility] Anion Gap 8 5 - 15 mmol/L [facility] Calcium 8.2 (L) 8.5 - 10.5 mg/dL [facility] Estimated GFR 95 >=60 mL/min/1.73 m?? [facility] Comment: This patient's estimated GFR [...] Organization Address City/State/[place] [address] (ABNORMAL) BLOOD GAS 2 ARTERIAL (05/15/2022 3:33 PM EDT) Analysis Performed At Patho logist Time Signature pH Art 7.33 (L) 7.35 - [facility] 7.45 [facility] pCO2 Art 41 35 - 45 [facility] LABORATORY pO2 Art 131 (H) 85 - 104 [facility] LABORATORY HCO3 Art 21.1 20.0 - [facility] 26.0 [facility] mmol/[facility] LABORATORY BE Art -4.8 (L) -3.0 - 3.0 [facility] mmol/L [facility] Hgb Blood Gas 13.4 (L) 13.7 - [facility] 16.5 g/dL [facility] O2HB Art 96.9 94.0 - [facility] 97.0 % [facility] COHB Art 1.4 % [facility] Comment: Nonsmokers: 0.5-1.5% COHB Smokers: Variable, but usually less than 10% Toxic: 20-30% COHB Lethal: Greater than 60% COHB METHB Art 0.3 <=1.5 % [facility] Na Whole Blood 139 135 - 145 mmol/L [facility] K Whole Blood 3.8 3.5 - 5.0 mmol/L [facility] Comment: Please note: Patients with WBC >100,000 may have falsely elevated Potassium levels. Contact the Clinical Chemistry L aboratory if there are any questions. ICa Whole Blood 1.32 1.15 - 1.33 mmol/L [facility] Comment: Note: ??Total bilirubin higher than 20 m g/dL may lead to falsely low ionized calcium. CL Whole Blood 113 (H) 98 - 107 mmol/L [facility] Gluc Whole Bld 136 65 - 199 mg/dL [facility] Comment: Diabetes: >=200 mg/dL plus symp toms. Lactate WB 2.0 0.5 - 2.2 mmol/L [facility] Specimen Anatomical Collection Method Collection Time Receive d Time (Source) Location / / Volume Laterality Blood 05/15/2022 3:33 PM 3:[address] Jamel Torre MD CHEMISTRY ORDERABLES Performing Organization Address City/State/[place] [address] (ABNORMAL) BLOOD GAS 2 ARTERIAL (05/15/2022 2:06 PM EDT) Analysis Performed At Patho logist Time Signature pH Art 7.39 7.35 - [facility] 7.45 [facility] pCO2 Art 35 35 - 45 [facility] LABORATORY pO2 Art 135 (H) 85 - 104 [facility] LABORATORY HCO3 Art 20.8 20.0 - [facility] 26.0 [facility] mmol/[facility] LABORATORY BE Art -4.2 (L) -3.0 - 3.0 [facility] mmol/L [facility] Hgb Blood Gas 14.5 13.7 - [facility] 16.5 g/dL [facility] O2HB Art 97.2 (H) 94.0 - [facility] 97.0 % [facility] COHB Art 1.2 % [facility] Comment: Nonsmokers: 0.5-1.5% COHB Smokers: Variable, but usually less than 10% Toxic: 20-30% COHB Lethal: Greater than 60% COHB METHB Art 0.3 <=1.5 % [facility] Na Whole Blood 140 135 - 145 mmol/L [facility] K Whole Blood 3.8 3.5 - 5.0 mmol/L [facility] Comment: Please note: Patients with WBC >100,000 may have falsely elevated Potassium levels. Contact the Clinical Chemistry L aboratory if there are any questions. ICa Whole Blood 1.12 (L) 1.15 - 1.33 mmol/L [facility] Comment: Note: ??Total bilirubin higher than 20 m g/dL may lead to falsely low ionized calcium. CL Whole Blood 109 (H) 98 - 107 mmol/L [facility] Gluc Whole Bld 152 65 - 199 mg/dL [facility] Comment: Diabetes: >=200 mg/dL plus symp toms. Lactate WB 1.5 0.5 - 2.2 mmol/L [facility] Specimen Anatomical Collection Method Collection Time Receive d Time (Source) Location / / Volume Laterality Blood 05/15/2022 2:06 PM 2:[address] Jamel Torre MD CHEMISTRY ORDERABLES Performing Organization Address City/[facility] [place] [address] (ABNORMAL) Prothrombin Time (05/15/2022 12:30 PM EDT) P athologist Signature PT 12.9 (H) 9.4 - 12.5 [facility] LABORATORY INR 1.1 [facility] Comment: An INR <2.0 indicates [...] Morales DO HEMATOLOGY ORDERABLES Performing Organization Address City/[facility]/ZIP [place] [address] (ABNORMAL) APTT (05/15/2022 12:30 PM EDT) P athologist Signature PTT 76 (H) 25 - 37 sec [facility] Comment: The PTT is NOT [...] Morales DO HEMATOLOGY ORDERABLES Performing Organization Address City/[facility]/ZIP Code Phon e Number [address] Gold Tube HOLD (05/15/2022 12:20 PM EDT) P athologist Signature Gold Hold Sample in [facility]. [facility] Specimen Anatomical Collection Method Collection Time Receive d Time (Source) Location / / Volume Laterality Blood No Charge / 05/15/2022 12:20 05/15/2022 Unknown PM EDT 12:20 PM EDT Lc TRIPP CHEMISTRY ORDERABLES Performing Organization Address City/[facility]/ZIP Code Phon e Number [address] Type and Screen Validity (05/15/2022 12:00 PM EDT) [facility] Paktor Method Time Signature T&S only valid [facility] at [facility] Comment: This Type and Screen result is only valid at the [facility] Specimen Anatomical Collection Method Collection Time Receive d Time (Source) Location / / Volume Laterality Blood 05/15/2022 12:00 05/15/2022 PM EDT 12:17 PM EDT Resulting Agency Comment Spec In Lab Lc TRIPP BLOOD BANK ORDERABLES Performing Organization Address City/[facility]/ZIP Code Phon e Number [address] ABORH Recheck Status (05/15/2022 12:00 PM EDT) [facility] Paktor Method Time Signature ABORH Recheck Order Placed [facility] LABORATORY ABORH Type Complete [facility] LABORATORY Specimen Anatomical Collection Method Collection Time Receive d Time (Source) Location / / Volume Laterality Blood 05/15/2022 12:00 05/15/2022 PM EDT 12:17 PM EDT Resulting Agency Comment Spec In Lab Lc TRIPP BLOOD BANK ORDERABLES Performing Organization Address City/[facility]/ZIP Code [place] [address] CK (05/15/2022 12:00 PM EDT) P athologist Signature CK, Total 87 0 - 200 [facility] unit/L [facility] Specimen Anatomical Collection Method Collection Time Receive d Time (Source) Location / / Volume Laterality Blood Venous Draw / 05/15/2022 12:00 05/15/2022 Unknown PM EDT 12:19 PM EDT Resulting Agency Comment Spec In Lab Fito Summers MD CHEMISTRY ORDERABLES Performing Organization Address City/[facility]/ZIP Code [place] [address] Antibody screen (05/15/2022 12:00 PM EDT) [facility] Method Time Signature Ab Screen Negative [facility] LABORATORY Expires at 05/18/2022 [facility] [id number] on: [facility] Specimen Anatomical Collection Method Collection Time Receive d Time (Source) Location / / Volume Laterality Blood 05/15/2022 12:00 05/15/2022 PM EDT 12:17 PM EDT Resulting Agency Comment Spec In Lab Lc TRIPP BLOOD BANK ORDERABLES Performing Organization Address City/[facility]/ZIP Code [place] [address] ABO/Rh Typing (05/15/2022 12:00 PM EDT) P athologist Signature ABORh Type O Pos [facility] Specimen Anatomical Collection Method Collection Time Receive d Time (Source) Location / / Volume Laterality Blood 05/15/2022 12:00 05/15/2022 PM EDT 12:17 PM EDT Resulting Agency Comment Spec In Lab Lc TRIPP BLOOD BANK ORDERABLES Performing Organization Address City/[facility]/ZIP Code Phon e Number [address] (ABNORMAL) Differential, Automated (05/15/2022 12:00 PM EDT) [facility] Method Time Signature Neutrophils % 79.4 % [facility] Neutr Abs (ANC) 7.49 (H) 1.70 - [facility] 6.10 [facility] x10(3)/[facility] LABORATORY Lymphocytes % 11.3 % [facility] Lymphocytes Abs 1.1 0.9 - 3.2 [facility] x10(3)/[facility] LABORATORY Monocytes % 7.8 % [facility] Monocyte Abs 0.7 0.3 - 0.9 [facility] x10(3)/[facility] LABORATORY Eosinophils % 0.6 % [facility] Eosinophils Abs 0.1 0.0 - 0.4 [facility] x10(3)/[facility] LABORATORY Basophils % 0.6 % [facility] Basophils Abs 0.1 0.0 - 0.1 [facility] x10(3)/[facility] LABORATORY Immature Gran % 0.30 % [facility] Comment: Immature granulocytes(IG's)percentage an d absolute count will include metamyelocytes, myelocytes, and promyelo cytes. Blood smears from CBCs yielding IG's will be scanned manually for concor dance. If this scan disagrees with the automated IG or if promyelocytes are not ed, a manual differential will be performed. Rain Gran Abs 0.03 0.00 - 0.04 x10(3)/[facility] LABORATORY Specimen Anatomical Collection Method Collection Time Receive d Time (Source) Location / / Volume Laterality Blood 05/15/2022 12:00 05/15/2022 PM EDT 12:19 PM EDT Resulting Agency Comment Spec In Lab Lc TRIPP HEMATOLOGY ORDERABLES Performing Organization Address City/[facility]/[place] [address] (ABNORMAL) Hemogram (05/15/2022 12:00 PM EDT) Analysis Performed At Patho logist Time Signature WBC 9.4 4.0 - 9.5 [facility] x10(3)/[facility] LABORATORY RBC 4.48 (L) 4.58 - [facility] FAYE 5.54 [facility] x10(6)/[facility] LABORATORY Hemoglobin 14.5 13.7 - [facility] 16.5 g/dL [facility] LAB[facility]ORY Hematocrit 42.4 40.5 - [facility] 48.5 % [facility] LAB[facility]ORY MCV 94.6 (H) 82.9 - [facility] 93.[address] [facility] LABORATORY MCH 32.4 (H) 27.5 - [facility] 32.1 pg [facility] LAB[facility]ORY MCHC 34.2 32.0 - [facility] 35.7 g/dL [facility] Platelets 209 145 - 357 [facility] x10(3)/[facility] LABORATORY RDWSD 45.9 (H) 36.0 - [facility] 45.[address] [facility] LABORATORY RDWCV 13.1 11.4 - [facility] 13.8 % [facility] LABORATORY MPV 10.5 7.6 - 12.9 [facility] LABORATORY nRBC % Auto 0.0 % [facility]OR[facility] nRBC Abs Auto 0.000 0.000 - [facility] 0.000 [facility] x10(3)/[facility] LABORATORY Specimen Anatomical Collection Method Collection Time Receive d Time (Source) Location / / Volume Laterality Blood 05/15/2022 12:00 05/15/2022 PM EDT 12:19 PM EDT Resulting Agency Comment Spec In Lab Lc TRIPP HEMATOLOGY ORDERABLES Performing Organization Address City/State/ZIP Code [place] [address] (ABNORMAL) Basic Metabolic Panel (non-fasting) (05/15/2022 12:00 PM EDT) P athologist Signature Glucose Lvl 203 (H) 65 - 199 [facility] mg/dL [facility] Comment: Diabetes: >=200 mg/dL plus symp toms BUN 16 10 - 20 mg/dL [facility] LABORATORY Creatinine 0.84 0.80 - 1.50 mg/dL [facility] Sodium 141 135 - 145 mmol/L [facility] Potassium 4.7 3.5 - 5.0 mmol/L [facility] Comment: Please note: ??Patients with WBC >100,00 0 may have falsely elevated Potassium levels. ??For accurate Potassium quantif ication in these patients send serum separator tube (gold top) for subsequent determinations. ??Contact the Clinical Chemistry Laboratory if there are any qu estions. Chloride 107 98 - 107 mmol/L [facility] CO2 23 22 - 31 mmol/L [facility] Anion Gap 11 5 - 15 mmol/L [facility] Calcium 8.5 8.5 - 10.5 mg/dL [facility] Estimated GFR 89 >=60 mL/min/1.73 m?? [facility] Comment: This patient's estimated GFR [...] Organization Address City/State/[place] [address] documented in this encounter [...] Provider: Barbie joseph RN - Reason: NPO)1750 ([facility] Hold - Provider: [...] mg 0838 (Given - Provi bre: Caroline Zaomra RN) 0853 (Given - Provider: Barbie Joyce [...] (New Bag - Provider: Barbie Joyce RN)175 ([facility] Hold - Provider: Admin Adt - Reason: Transfer to a Procedural area)1955 ([facility] Unhold - Provider: Admin Adt) 0219 (Restarted - Provider: Tere Blankenship RN - Comment: 4 hours since tr band off, per MD ashraf)1301 (Rate/Dose Verify - Provider: Etta Dno RN)1743 (Due: Stopped) 0-5,000 Units/hr (0-100 mL/hr), [...] bisacodyL (Dulcolax) suppository 10 mg 1 751 ([facility] Hold - Provider: [...] (porcine) (1,000 units/mL) injection 0-8,000 Units 1750 ([facility] Hold - Provider: [...]
Routine documented in this encounter Care Teams Welding Machine Operator/Tender Relationship Specialty Start Date End Date Bobby Das MD PCP - General 10/02/[address] [place] [address] [place] [address] documented as of this encounter
--- OUTSIDE RECORDS SUMMARY | 2022-06-23 03:50 | XMS_ITS | Encounter Summary ---
:1940 [place] [address] Care Team Providers Name Role Phone Bobby Das MD Primary Care Provider Encounter Details Date Type Department Care Team Description 05/15/2022 Ancillary Procedure Radiology Library at [facility], Lavell Butt, [facility] [place] [address] VASCULAR SURGERY [phone] [place], [place] [address] (Wo rk) Social History Tobacco [...] 07/02/2022 Office Visit Vascular Surgery Jing Ghosh, PROJECT INTERN [facility] VASCULAR SURGERY [place], [place] [address] (Wo rk) 09/02/2022 Clinical Support Dermatology Thai Lynn MD [facility] DR JENNY BILLY-DERMAT [place], [place] [address] (Wo rk) 09/02/2022 Procedure visit Dermatology Jace Lynn MD [facility] DR JENNY B[place], [place] [address] (Wo rk) 09/05/2022 Appointment Cardiology Trinity Reid MD [facility] CARDIOLOGY [place], [place] [address] (Wo rk) 09/05/2022 Office Visit Cardiology Trinity Reid MD [facility] CARDIOLOGY [place], [place] [address] (Wo rk) documented as of [...] Organization Address City/State/ZIP Code Phon e Number [place], [place] documented in this encounter Visit Diagnoses Not on filedocumented in this encounter Care Teams Artificial Insemination Technician Relationship Specialty Start Date End Date Bobby Dsa MD PCP - General 10/02/[address] [place] [address] Dr [place], [place] [phone] documented as of this encounter
--- OUTSIDE RECORDS SUMMARY | 2022-06-23 03:50 | XMS_ITS | Encounter Summary ---
:1940 Author Organization [facility] Address [facility] [place] [address] Care Team Providers Name Role Phone Bobby Das MD Primary Care Provider Encounter Details Date Type Department Care Team Description 10/25/2020 Laboratory Appointment Lab at [facility] Compression fracture [facility] of T[facility] [place] [phone] Social History Tobacco Use Types Packs/Day Years [...] [facility] VASCULAR SURGERY [place], [place] [address] (Rebekah rojas) 09/02/2022 Clinical Support Dermatology Thai Lynn MD [facility] DR JENNY BILLY-DERMAT [place], [place] [address] (Rebekah rojas) 09/02/2022 Procedure visit Dermatology Jace Lynn MD [facility] DR JENNY BILLY-DERMAT [place], [place] [address] (Rebekah rojas) 09/05/2022 Appointment Cardiology Trinity Reid MD [facility] CARDIOLOGY [place], [place] [address] (Wo rk) 09/05/2022 Office Visit Cardiology Trinity Reid MD [facility] ER CARDIOLOGY [place] [address] (Wo rk) documented as of this [...] athologist Signature Platelets 192 145 - 357 [facility] x10(3)/[facility] LABORAT[facility] Plat Immature 2.6 0.0 - 7.4 ILDA XIAO % % [facility] Comment: Limitation of the Immature Platelet Frac tion (IPF)-May be less reliable when the platelet count is less than 42m043/u L due to statistical imprecision. The IPF [...] in a decreased state of production. References: [employer] The Clinical Value of the Immature Platelet Fraction (IPF) in Cell Recovery Document Number [id number] 04/2011 [employer] The Role of the Imm ature Platelet Fraction (IPF) in the Differential Diagnosis of Thrombocytopen ia, Document [id number] V003/21/14 P003/23 Specimen Anatomical Collection Method Collection Time Receive d Time (Source) Location / / Volume Laterality Blood specimen 10/25/2020 6:35 AM 020 6:52 (specimen) EST AM EST Resulting Agency Comment Spec In Lab Alphonso Esquivel DO HEMATOLOGY ORDERABLES Performing Organization Address City/[facility]/ZIP [facility] [place] [address] Prothrombin Time (10/25/2020 6:35 AM EST) athologist Signature PT 10.8 9.4 - 12.5 [facility] LABORATORY INR 1.0 [facility] Comment: An INR <2.0 [...] Esquivel DO HEMATOLOGY ORDERABLES Performing Organization Address City/[facility]/ZIP Code [facility] [place] [address] documented in this encounter Visit Diagnoses Diagnosis Compression fracture of T9 vertebra, ini tial encounter documented in this encounter Care Teams Brake Holder Relationship Specialty Start Date End Date Bobby Das MD PCP - General 10/02/[address] [place] [address] [place] [phone] documented as of this encounter
--- OUTSIDE RECORDS SUMMARY | 2022-06-23 03:50 | XMS_ITS | Encounter Summary ---
:1940 Author Organization [facility] [place] [address] Care Team Providers Name Role Phone Bobby Das MD Primary Care Provider Reason for Referral Consultation (Routine) - Closed Specialty Diagnoses / Procedures Referred By Contact Refer red To Contact Neurology Diagnoses Low back pain, non-specific Status post vertebroplasty Transient left leg weakness EMG Arpita Whitney APRN [facility] [address] [place], [place] [phone] [place] [phone] Fax: Referral ID Status Reason Start Date Expiration Date Visits V isits Requested Authorized [id number] Closed Consult, 04/17/2021 04/17/2022 1 1 Test & Treat hysical Therapy (Routine) - Specialty Diagnoses / Procedures Referred By Contact Refer red To Contact Diagnoses Low back pain, non-specific Status post vertebroplasty [place] [address] Referral ID Status Reason Start Date Expiration Date Visits V isits Requested Authorized [id number] Evaluate and 04/17/2021 10/14/2021 12 12 Treat Reason for Visit Reason Comments Back Pain new patient visit Consultation (Routine) - Closed Specialty Diagnoses / Procedures Referred By Contact Refer red To Contact [facility] Diagnoses Low back pain Pain - Low back pain/ MRI 02/20/21 & XR 01/31/21 @ [facility] Bobby Das MD [facility] [address] [place], [place] Drive [address] [place] [address] Phone: Fax: Referral ID Status Reason Start Date Expiration Date Visits Requ ested Visits Authorized [id number] Closed 03/07/2021 03/07/2022 1 1 Encounter Details Date Type Department Care Team Description 04/17/2021 Office Visit [facility] Sp[facility] Arpita Whitney Lo w back pain, non-specific; at [facility] GYMNASTIC TEACHER Status post vertebroplasty; [facility] nsient left leg weakness Drive [place], [place] [phone] Social History Tobacco [...] from the original note were not included. [facility] Date [...] here for today. Had lumbar imaging and [facility] as ordered by PCP with no new [...] standing limited due to back pain [facility] Prescription Monitoring Program was checked. The number of prescriptions reported was 0. Current Medications: Outpatient Medications Marked as Taking for the 04/17/21 encounter (Office Visit) with Arpita Whitney APRN Medication Sig Dispense Refill ??? fluticasone propionate (FLONASE) 50 mcg/actuation [place], Suspension as needed. ??? fluorouraciL (EFUDEX) 5 [...] IR Biopsy Spine 07/20/2019 Bobby Marshall MD [facility] INTER[facility] RAD ??? IR VERTEBROPLASTY LUMBAR MULTIPLE LEVELS 07/20/2019 IR Vertebroplasty Lumbar Multiple Levels 07/20/2019 Bobby Marshall MD [facility] RAD ??? IR VERTEBROPLASTY THORACIC SINGLE LEVEL 10/25/2020 IR Vertebroplasty Thoracic Single Level 10/25/2020 Matt Chisholm MD [facility] RAD Review of Systems: ROS: [...] y.o. year-old male who presents to the [facility] clinic, previously [...] Mr. Koko Zamora's care. Arpita Whitney, MSN, UKE OPERATOR- C, GYMNASTIC TEACHER Nurse Practitioner [facility] [place] [phone] / [facility] documented in this encounter Plan of Treatment Upcoming Encounters Date Type Specialty Care Team Description 07/02/2022 Office Visit Vascular Surgery Jing Ghosh APRN [facility] VASCULAR SURGERY [place], [place] [address] (Wo rk) 09/02/2022 Clinical Support Dermatology Thai Lynn MD [facility] DR JENNY BILLY-DERMAT [place], [place] [address] (Wo rk) 09/02/2022 Procedure visit Dermatology Jace Lynn MD [facility] DR JENNY BILLY-DERMAT [place], [place] [address] (Wo rk) 09/05/2022 Appointment Cardiology Trinity Reid MD [facility] CARDIOLOGY [place], [place] [address] (Wo rk) 09/05/2022 Office Visit Cardiology Trinity Reid MD [facility] CARDIOLOGY [place], [place] [address] (Wo rk) Scheduled Referrals Name [...] limbs documented in this encounter Care Teams Director Of Epidemiology Relationship Specialty Start Date End Date Bobby Das MD PCP - General 10/02/[address] [place] [address] [place] [address] documented as of this encounter
--- OUTSIDE RECORDS SUMMARY | 2022-06-23 03:50 | XMS_ITS | Encounter Summary ---
:1940 [place] [address] Care Team Providers Name Role Phone Bobby Das MD Primary Care Provider Reason for Visit Auth/Cert Specialty Diagnoses / Procedures Referred By Contact Refer red To Contact Diagnoses Limb ischemia LLE thrombus Fito Summers MD [facility] [place] [address] Referral ID Status Reason Start Date Expiration Date Visits Requ ested Visits Authorized [id number] 1 1 Encounter Details Date Type Department Care Team Description 05/15/2022 Anesthesia Event Main Operating Room Cari Briggs MD [facility] [place] [address] [facility] Duong Aguillon CRNA [facility] [place] [address] [place] [address] Anesthesia Record Procedure Summary Procedure Name [...] RN Amb Hilton houser RN fossa), left; wakw-cvb-khzpgd catheter system; 18 gauge; OSH; site care per policy/procedure, site symptomatic, removed per policy/procedure, catheter/device intact; 05/16/22; 1117 PIV 05/15/22; 1204; median 05/15/22 1204 by 05/16/22 0738 by cubital vein (antecubital Marcia Dimas RN Gon zalez, Adriana, fossa), right; RN pkku-yct-katxcb catheter system; 18 gauge; OSH; 05/16/22; 0738 [...] Procedure Summary Date: 05/15/22 Room / Location: [facility] OR [address] [place] [address] MAIN OR Anesthesia Start: 1320 Anesthesia Stop: 1633 Procedure: EMBOLECTOMY OR THROMBECTOMY, FEMOROPOPLITEAL, AORTOILIAC ARTERY BY LEG INCISION (WRVU 19.48) (Left ) Diagnosis: (Acute Limb Ischemia) Surgeons: Fito Summers MD Responsible Provider: Cari Ventura MD Anesthesia Type: general ASA Status: 3 - Emergent All Anesthesia Providers: Anesthesiologist: Cari Ventura MD LINING FELLER: Torres Aguilar CRNA Vitals Value Taken Time BP 108/69 05/15/22 1715 Temp 36.3 ??C (97.3 ??F) 05/15/22 1633 Pulse 110 05/15/22 1719 Resp 16 05/15/22 1719 SpO2 89 % 05/15/22 1719 Pain Level Vitals shown include unvalidated device data. Patient Location: PACU/[facility] Level of Consciousness: Awake and Alert Pain [...] THROMBECTOMY, FEMOROPOPLITEAL, AORTOILIAC ARTERY [facility] LEG INCISION [facility] Patient Active Problem List Diagnosis [...] IR Biopsy Spine 07/20/2019 Bobby Marshall MD [facility] INTERVENTIONL RAD ??? IR VERTEBROPLASTY LUMBAR MULTIPLE LEVELS 07/20/2019 IR Vertebroplasty Lumbar Multiple Levels 07/20/2019 Bobby Marshall MD [facility] INTER[facility] RAD ??? IR VERTEBROPLASTY THORACIC SINGLE LEVEL 10/25/2020 IR Vertebroplasty Thoracic Single Level 10/25/2020 Matt Chisholm MD [facility] INTER[facility] RAD Social History Tobacco Use ??? [...] a(n) intravenous induction 81 yo current and correction smoker with significant daily etoh use (6 [...] discussed with patient who. Plan discussed with LINING FELLER. Anesthesia Screening documented in this encounter Plan of Treatment Upcoming Encounters Date Type Specialty Care Team Description 07/02/2022 Office Visit Vascular Surgery Jing Ghosh APRN [facility] VASCULAR SURGERY [place], [place] [address] (Wo rk) 09/02/2022 Clinical Support Dermatology Thai Lynn MD [facility] DR JENNY BILLY-DERMAT [place], [place] [address] (Wo rk) 09/02/2022 Procedure visit Dermatology Jace Lynn MD [facility] DR JENNY BILLY-DERMAT [place], [place] [address] (Wo rk) 09/05/2022 Appointment Cardiology Trinity Reid MD [facility] CARDIOLOGY [place], [place] [address] (Wo rk) 09/05/2022 Office Visit Cardiology Trinity Reid MD [facility] CARDIOLOGY [place], [place] [address] (Wo rk) documented as of [...] Routine documented in this encounter Care Teams Soundscriber Mechanic Relationship Specialty Start Date End Date Bobby Das MD PCP - General 10/02/[address] [place] [address] [place] [phone] documented as of this encounter
--- OUTSIDE RECORDS SUMMARY | 2022-06-23 03:50 | XMS_ITS | Encounter Summary ---
:1940 [place] [address] Care Team Providers Name Role Phone Bobby Das MD Primary Care Provider Encounter Details Date Type Department Care Team Description 05/15/2022 Ancillary Procedure Radiology Library at [facility], Lavell Butt, [facility] [place] [address] VASCULAR SURGERY [phone] [place], [place] [address] (Wo rk) Social History Tobacco [...] 07/02/2022 Office Visit Vascular Surgery Jing Ghosh, PARACHUTE/COMBATANT DIVER OFFICER [facility] VASCULAR SURGERY [place], [place] [address] (Wo rk) 09/02/2022 Clinical Support Dermatology Thai Lynn MD [facility] DR JENNY BILLY-DERMAT [place], [place] [address] (Wo rk) 09/02/2022 Procedure visit Dermatology Jace Lynn MD [facility] DR JENNY BILLY-DERMAT [place], [place] [address] (Wo rk) 09/05/2022 Appointment Cardiology Trinity Reid MD [facility] CARDIOLOGY [place], [place] [address] (Wo rk) 09/05/2022 Office Visit Cardiology Trinity Reid MD [facility] CARDIOLOGY [place], [place] [address] (Wo rk) documented as of [...] Organization Address City/State/ZIP Code Phon e Number [place], [place] documented in this encounter Visit Diagnoses Not on filedocumented in this encounter Care Teams Business Intern Relationship Specialty Start Date End Date Bobby Das MD PCP - General 10/02/[address] [place] [address] [place] [phone] documented as of this encounter
--- OUTSIDE RECORDS SUMMARY | 2022-06-23 03:50 | XMS_ITS | Encounter Summary ---
:1940 [place] [address] Care Team Providers Name Role Phone Bobby Das MD Primary Care Provider Encounter Details Date Type Department Care Team Description 02/27/2021 Notes Only Radiology Matt Chisholm MD [facility] [place] [address] DIAGNOSTIC RADIOLOGY [phone] [place] [address] (Wo rk) Social History Tobacco Use Types [...] Vascular Surgery Jing Ghosh APRN [facility] VASCULAR SURGERY [place], [place] [address] (Wo rk) 09/02/2022 Clinical Support Dermatology Thai Lynn MD [facility] DR JENNY BILLY-DERMAT [place], [place] [address] (Wo rk) 09/02/2022 Procedure visit Dermatology Jace Lynn MD [facility] DR JENNY BILLY-DERMAT [place], [place] [address] (Wo rk) 09/05/2022 Appointment Cardiology Trinity Reid MD [facility] CARDIOLOGY [place], [place] [address] (Wo rk) 09/05/2022 Office Visit Cardiology Trinity Reid MD [facility] CARDIOLOGY [place], [place] [address] (Wo rk) documented as of this encounter Visit Diagnoses Not on filedocumented in this encounter Care Teams Electrical Systems Drafter Relationship Specialty Start Date End Date Bobby Das MD PCP - General 10/02/[address] [place] [address] [place] [address] documented as of this encounter
--- OUTSIDE RECORDS SUMMARY | 2022-06-23 03:50 | XMS_ITS | Encounter Summary ---
:1940 Author Organization [facility] Address [facility] [place] [address] Care Team Providers Name Role Phone Bobby Das MD Primary Care Provider Reason for Visit - Closed Specialty Diagnoses / Procedures Referred By Contact Refer red To Contact Procedures Bobby Das MD Film Library- Storage Only [address] [place] [address] Referral ID Status Reason Start Date Expiration Date Visits Requ ested Visits Authorized [id number] Closed 02/23/2021 02/23/2022 1 1 Encounter Details Date Type Department Care Team Description 02/20/2021 Ancillary Procedure Radiology Library at Bobby Almaguer MD [address] [phone] (Rebekah rk) Social History Tobacco Use Types [...] [facility] DR VASCULAR SURGERY [place], [place] [address] (Wo rk) 09/02/2022 Clinical Support Dermatology Thai Lynn MD [facility] DR JENNY BILLY-DERMAT [place], [place] [address] (Wo rk) 09/02/2022 Procedure visit Dermatology Jace Lynn MD [facility] DR JENNY BILLY-DERMAT [place], [place] [address] (Wo rk) 09/05/2022 Appointment Cardiology Trinity Reid MD [facility] CARDIOLOGY [place], [place] [address] (Wo rk) 09/05/2022 Office Visit Cardiology Trinity Reid MD [facility] CARDIOLOGY [place], [place] [address] (Wo rk) documented as of [...] Address City/State/ZIP Code Phon e Number RAD [place], [place] documented in this encounter Visit Diagnoses Not on filedocumented in this encounter Care Teams Chemical Research Worker Relationship Specialty Start Date End Date Bobby Das MD PCP - General 10/02/[address] [place] [address] [place] [phone] documented as of this encounter
--- OUTSIDE RECORDS SUMMARY | 2022-06-23 03:50 | XMS_ITS | Encounter Summary ---
:1940 [place] [address] Care Team Providers Name Role Phone Bobby Das MD Primary Care Provider Reason for Visit Reason Comments Left Leg Pain Auth/Cert Specialty Diagnoses / Procedures Referred By Contact Refer red To Contact Diagnoses Limb ischemia LLE thrombus Fito Summers MD [facility] [place] [address] Referral ID Status Reason Start Date Expiration Date Visits Requ ested Visits Authorized [id number] 1 1 Encounter Details Date Type Department Care Team Description 05/15/2022 Surgery Main Operating Room Savana Summers se, MD [facility] FEMOROPOSANG, [facility] VASCULAR SURG JULIAN [place] [address] LEG INCISION ([place] [address] 19.48) [phone] Social History Tobacco Use Types Packs/Day Years [...] onset Afib who presents in transfer from [facility] with acute limb ischemia of the [...] emergently went to the OR for L TAPE MACHINE TAILER transverse arteriotomy and primary repair, thromboembolectomy of L SFA/PFA/TAPE MACHINE TAILER, reperfusion venous drainage for 250 cc, and [...] Discharge Condition: Good Discharge to: Home with [facility] [address] [address] Future Appointments and Orders Future Appointments and Orders Future Appointments Provider Department Dept Phone 05/23/2022 10:30 AM Loretta Cohen MD Dermatology at [facility] Arrive at: Acupuncturist [address] [place] [address] 06/07/2022 1:30 PM Gail Rae APRN Vascular Surgery at [facility] Arrive at: Acupuncturist Area [phone] 06/13/2022 7:30 AM Edson Lagos [place] Vascular Lab at [facility] Arrive at: Acupuncturist Area [phone] 06/13/2022 8:00 AM Fito Summers MD Vascular Surgery at [facility] Arrive at: Acupuncturist Area 3V [phone] 06/13/2022 10:00 AM Alan Reid MD Cardiology at [facility] Arrive at: Acupuncturist Area 4A [phone] Future Orders Complete By Expires Ziopatch 48 Hrs-15 Days [[id number] CPT(R)] 05/21/2022 11/20/2022 Process Instructions: Scheduling Instructions: Comments: Questions: Does the patient have a pacemaker? If yes provide HI/LO settings: Apply for 7 or 14 days?: 7 Where will study be performed?: [facility] Clinics JOSSELYN, legs, multiple levels [VAS8 Custom] 06/21/2022 (Approximate) 12/21/2022 Process Instructions: There is no in-house vascular mill laborer available on weeknights (5pm-8am), weekends, or holidays. IF THIS IS A REQUEST FOR AN EMERGENT STUDY DURING THOSE HOURS, please have the senior provider responsible for the patient page the Vascular Surgery Fellow/Senior Resident chemist water purification to discuss options. Scheduling Instructions: Questions: Indication for study/signs & symptoms: ALI s/p L fem cutdown with thromboembolectomy Question to be answered: Perfusion to feet? Please check toe pressure Preferred location?: [facility] Referral to Cardiology [REF12 Custom] As directed [...] Zamora for admission to Home Health. [address] [facility] [address] (home) Date of : 1940 Inpatient DOCUMENTATION FOR VNA SERVICES (INCLUDING THOSE PATIENTS WITH MEDICARE COVERAGE REQUIRING HOME VNA SERVICES AND/OR HOSPICE SERVICES) PATIENT'S LOCATION: Koko Zamora [address] [facility] [address] (home) Cell: No relevant phone numbers on file. Chef Kitchen Manager's Name: Koko In discussion with the attending physician, it is certified that this patient is under their care and that they, or a Nurse Practitioner,Clinical Nurse specialist or Physician Cyber Transport Systems Specialist who is working directly with them, had [...] for managing ADL's. HOME HEALTH CARE AGENCY: [facility] [address] [place] [id number] Start of care: Within 24 to 48 [...] obtained from this patient'sPCP: Bobby Das MD [address] [place] [address] / [place] [address] All VNA agencies which cover the [...] For any problems or questions please call [phone] For issues on weeknights after 5pm and weekends please call [phone] and ask for the Vascular Fellow chemist water purification. JOSEE Santiago Vascular Surgery 05/21/2022 documented in [...] For any problems or questions please call [phone] For issues on weeknights after 5pm and weekends please call [phone] and ask for the Vascular Fellow chemist water purification. documented in this encounter Medications at Time [...] 04/12/20 21 (FLONASE) 50 mcg/actuation Nare route [place], Suspension daily as needed. fluorouraciL (EFUDEX) 5 [...] documented as of this encounter Progress Notes Narsin Parra PA - 05/21/2022 12:41 PM EDT Vascular Surgery Progress Note Koko Zamora is a 81 y.o. male with w new onset Afib who presents in transfer from [facility] with acute limb ischemia of the [...] status, full code. JOSEE Santiago 05/21/2022 Pager: [phone] PaBrannon gamino, PT - 05/21/2022 10:35 AM [...] plan as stated. Time IN / OUT: 2978-6510 Total Minutes, Physical Therapy: 25 Billing Code: 2 TA Brannon Isaacs DPT Pager: [phone] Physical Therapy Inpatient Rehabilitation Department [place] Jean [...] 04/17/2021 in Pain and Spine Center at [facility] Weight 79.8 kg (175 lb 14.8 oz) [...] and plan of care per Dr. Mcnamara (spray mixer). Please refer to her note above for [...] limb ischemia (thromboembolic) and he is a retirement smoker (1/2 ppd, recommend nicotine patch). His [...] to Hosp-Admission (Current) from 05/15/2022 in 4 [facility] Office Visit from 04/17/2021 in Pain and Spine Center at [facility] Weight 79.8 kg (175 lb 14.8 oz) [...] findings andplan of care per Dr. Mcnamara (spray mixer). Please refer to her note above for [...] a mitral repair in 2000 (not at [facility]) with no CAD at that time. Currently, [...] AF and the first documented HR at [facility] was 125 bpm (presented to an an [...] onset Afib who presents in transfer from [facility] with acute limb ischemia of the [...] management following Dottie Hill APRN 05/20/2022 Pager: [phone] Laney Atkins RN - 05/20/2022 1:14 AM EDT Pt Koko transferred to room from [facility]. A&Ox4, oriented to room and call boo. Masimo and telemetry placed. In agreement with assessment as documented this evening by Nuris ASHLEY. No complaints at this time. Pt aware of NPO status and plan for cardiac cath in AM. Urinal provided. Resting comfortably in bed. Nuris Lester RN - 05/20/2022 1:09 AM EDT Pt. Transferred to [facility]. RN accompanied patient to floor and handed off to [facility] RN Dottie Hill APRN - 05/19/2022 10:02 AM EDT Vascular Surgery Progress Note Koko Zamora is a 81 y.o. male with w new onset Afib who presents in transfer from [facility] with acute limb ischemia of the [...] management following Dottie Hill APRN 05/19/2022 Pager: [phone] Emily Sauceda RN - 05/19/2022 6:28 AM EDT OUTCOME EVALUATION NOTE: OUTCOME SUMMARY: Patient AOx4, VSS on RA. Afib on tele. HR controlled w/ PRN metop, given x2. Denies CP, SOB, n/v. See flowsheets for NVC. Dressings to LLE CDI, prevena W[place] to groin intact. Voiding to urinal. LBM CHEF KITCHEN MANAGER, patient stating he will maybe try the [...] adequately without difficulty to bedside urinal. LBM CHEF KITCHEN MANAGER. Up to chair this AM with nursing staff. Worked with PT, tolerated well. Diet changed to regular at 1800.Plan is for cardiac cath on Friday. PLAN MOVING FORWARD: Bleeding precautions Pain management neurovascular checks PT/OT chemical lab technician INDIVIDUALIZED FALL PREVENTION INTERVENTIONS: Patient-specific [...] onset Afib who presents in transfer from [facility] with acute limb ischemia of the [...] mL Intravenous BID ??? PHENobarbitaL 0.12 mg/kg/dose (Dingess) Oral BID ??? thiamine 100 mg Oral [...] reviewed in chart Assessment & Plan: Koko aZmora is a 81 y.o. male 3 Days [...] management following Dottie Hill APRN 05/18/2022 Pager: [phone] Brannon Isaacs, PT - 05/18/2022 10:00 AM [...] IR Biopsy Spine 07/20/2019 Bobby Marshall MD [facility] INTERVENTIONL RAD ??? IR VERTEBROPLASTY LUMBAR MULTIPLE LEVELS 07/20/2019 IR Vertebroplasty Lumbar Multiple Levels 07/20/2019 Bobby Marshall MD [facility] INTERVENTIONL RAD ??? IR VERTEBROPLASTY THORACIC SINGLE LEVEL 10/25/2020 IR Vertebroplasty Thoracic Single Level 10/25/2020 Matt Chisholm MD [facility] INTERVENTIONL RAD ??? PRO EMBLC/THRMBC FEMORAL POPLITEAL AORTO-ILIAC ARTERY Left 05/15/2022 EMBOLECTOMY OR THROMBECTOMY, FEMOROPOPLITEAL, AORTOILIAC ARTERY BY LEG INCISION (WRVU 19.48) performed by Fito Summers MD at [facility] MAIN OR Social History: Pt lives [...] in this evaluation. Time IN / OUT: 1045-0075 Total Minutes, Physical Therapy: 30 Billing Code: Basilio Isaacs, PT Pager: [phone] Physical Therapy Inpatient Rehabilitation Department Emily Sauceda RN - 05/18/2022 4:34 AM EDT OUTCOME EVALUATION NOTE: OUTCOME SUMMARY: Patient AOx4, VSS on 2LNC. Afib on tele. HR above 120, MD aware, PRN IV metop given x1, HR returned to 90's-low 100's. Denies CP, SOB, n/v. See flowsheets for NVC. Dressings to LLE CDI, prevena WV to groin intact. Voiding to urinal. LBM CHEF KITCHEN MANAGER. Heparin gtt therapeutic. Pain controlled. Patient sleeping [...] adequately without difficulty to bedside urinal. LBM CHEF KITCHEN MANAGER. Patient not OOB this shift. Currently NPO awaitingprocedure in geotechnical laboratory technician. PLAN MOVING FORWARD: Bleeding precautions Pain management neurovascular checks PT/OT NPO for geotechnical laboratory technician INDIVIDUALIZED FALL PREVENTION INTERVENTIONS: Patient-specific [...] the Emergency Department as a transfer from [facility] with left lower extremity limb ischemia. He went to [facility] and was startedon heparin and transferred to [facility] for evaluation by vascular surgery with subsequent [...] he will will be going to the geotechnical laboratory technician for evaluation. Will defer PT eval at present but will see as ordered post cardiac catheritizaton. Social Hx:Pt lives with his Ursula in [place], [place] in a 2 level home in [...] WBAT LLE LISBET HERMAN PT Pager # [phone] In-Pt Rehab Medicine Dottie Hill APRN - 05/17/2022 7:42 AM EDT Vascular Surgery Progress Note Koko Zamora is a 81 y.o. male with w new onset Afib who presents in transfer from [facility] with acute limb ischemia of the [...] mL Intravenous BID ??? PHENobarbitaL 0.24 mg/kg/dose (Dingess) Oral BID Followed by ??? [START ON 05/18/2022] PHENobarbitaL 0.12 mg/kg/dose (Dingess) Oral BID ??? thiamine 100 mg Oral [...] management following Dottie Hill APRN 05/17/2022 Pager: [phone] Sary Dos Santos, RN - 05/17/2022 12:16 [...] onset Afib who presents in transfer from [facility] with acute limb ischemia of the [...] mL Intravenous BID ??? PHENobarbitaL 0.48 mg/kg/dose (Dingess) Oral BID Followed by ??? [START ON 05/17/2022] PHENobarbitaL 0.24 mg/kg/dose (Dingess) Oral BID Followed by ??? [START ON 05/18/2022] PHENobarbitaL 0.12 mg/kg/dose (Dingess) Oral BID ??? thiamine 100 mg Oral [...] management following Edward Rodríguez MD 05/16/2022 Pager: [phone] Sary Dos Santos RN - 05/16/2022 12:52 [...] 2129 Hand off to DION Ramirez 3 jeremiah documented in this encounter H&P Notes Kerry [...] onset Afib who presents in transfer from [facility] with acute limb ischemia of the [...] IR Biopsy Spine 07/20/2019 Bobby Marshall MD [facility] INTERVENTIONL RAD ??? IR VERTEBROPLASTY LUMBAR MULTIPLE LEVELS 07/20/2019 IR Vertebroplasty Lumbar Multiple Levels 07/20/2019 Bobby Marshall MD [facility] INTERVENTIONL RAD ??? IR VERTEBROPLASTY THORACIC SINGLE LEVEL 10/25/2020 IR Vertebroplasty Thoracic Single Level 10/25/2020 Matt Chisholm MD [facility] INTERVENTIONL RAD Social Hx: Social History [...] Refill ??? fluticasone propionate (FLONASE) 50 mcg/actuation [place], Suspension as needed. ??? fluorouraciL (EFUDEX) 5 [...] and consented. Tim Chicas MD 05/15/2022 Pager: [phone] documented in this encounter ED Notes Lc Harris PA - 05/15/2022 1:20 PM EDT ED Provider Note HPI: Koko Zamora is a 81 y.o. male with history of atrial fibrillation not on anticoagulation, and GI bleeding who presents to the Emergency Department as a transfer from [facility] with left lower extremity limb ischemia. Patient says that the symptoms started roughly 630 this morning when he developed severe pain in his left lower extremity. He went to [facility] and was started on heparin and transferred to [facility] for evaluation by vascular surgery. Review of [...] src: Oral SpO2: 94 % O2 Device: MA O2 Flow Rate (L/min): 2 L/min Physical [...] lower extremity earlier today and went to [facility] where it was determined that he had ischemia of the left lower extremity. Vascular surgery [facility] was contacted and he was transferred [...] orders before pt. Arrival. Pt. Arrived at [facility] by EMS at 1150, vascular team at [...] in an outpatient cardiac rehabilitation program at [facility] was discussed. Patient agrees to a referral to this program. Timing will depend on his recovery from Vascular surgery. He is going home w/VNA PT. I gave him the brochure for the program at [facility] for future reference. Care Management Discharge [...] information for follow-up Home Health [facility] H[facility], [place] [address] [place] [address] Transportation: family or friend will provide Functional [...] Type: *No Product type* / Secondary Insurance: [facility] Prescription Coverage: Yes This plan was formulated with input from patient and team. All are in agreement with plan. RS has communicated with [facility] - for initial IMM. Shawn (Satish) DION López RN/CM - Cellphone: [phone] Pager: [phone] Covering Service RN/CM Plan of Care - [...] catheterization, transferred in hospital bed accompanied by Product Developer RN, remains on telemetry monitoring. Heparin [...] Type: *No Product type* / Secondary Insurance: [facility] Last Physical Therapy Recommendation: home with home health, home with supervision with None Last Occupational Therapy Recommendation: with Plan for discharge is: Home w/ Services Outpatient Agency/Support Group Needs: None Home Health Services: Registered Nurse, Physical Therapy, Occupational Therapy Agency Referrals: I have met with the patient to: ?? discuss discharge planning needs. ?? provide the [facility], Office of Care Management letter from the Line Maintenance Supervisor pertaining to rehab referrals. ?? provide a letter describing our affiliations within the [facility] and educate about their right to choose where referrals are sent. ?? provide a list of Home Health Agencies / Durable Medical Equipment vendors which serve their preferred geographic area. ?? provided patient with [facility] Star Quality Rating handout. They have requested referrals to: [facility] [place] [address] Note routed to a Superintendent Transportation who will communicate referrals to facilities and provide any required information. Transportation: family or friend will provide Barriers to discharge: None Plan going forward: Patient is going for a cardiac cath today and plan will come from there. Patientwas recently seen by PT and they recommend VNA at time of discharge. [facility] was routed and pendedat this time. Care Management will continue to follow and assist with discharge planning and coordination of care as indicated. Anticipated Date of Discharge: 05/21/2022 Nataly RICHMOND RN Phone: [phone] Pager: [phone] Plan of Care - Laney Atkins RN [...] from the original note were not included. [facility] [place] [address] [address] INPATIENT CARDIOLOGY CONSULT NOTE Date of Consultation: 05/17/2022 Admit Date: 05/15/2022 Hospital Day 2 days Reason for Consult: New afib Active Problems: Active Hospital Problems Diagnosis Limb ischemia Resolved Hospital Problems No resolved problems to display. HPI: Koko Zamora is a 81 y.o. male with a PMHx significant for MVP (s/p MV repair 2000), tobacco use, HLD, who presented to [facility] from OSH on 05/15 with acute limb ischemia of LLE and was found to be in atrial fibrillation. Patient had sudden onset LLE pain on 05/15 and presented to [facility], where he was started on heparin and transferred to [facility]. Upon arrival to [facility], patient was in atrial fib with RVR [...] IR Biopsy Spine 07/20/2019 Bobby Marshall MD [facility] INTERVENTIONL RAD IR VERTEBROPLASTY LUMBAR MULTIPLE LEVELS 07/20/2019 IR Vertebroplasty Lumbar Multiple Levels 07/20/2019 Bobby Marshall MD [facility] INTERVENTIONL RAD IR VERTEBROPLASTY THORACIC SINGLE LEVEL 10/25/2020 IR Vertebroplasty Thoracic Single Level 10/25/2020 Matt Chisholm MD [facility] INTERVENTIONL RAD PRO EMBLC/THRMBC FEMORAL POPLITEAL AORTO-ILIAC ARTERY Left 05/15/2022 EMBOLECTOMY OR THROMBECTOMY, FEMOROPOPLITEAL, AORTOILIAC ARTERY BY LEG INCISION (WRVU 19.48) performed by Fito Summers MD at [facility] MAIN OR Allergies Allergen Reactions Aspirin Other (See Comments) GI bleed Out-Patient Medications: Medications Prior to Admission Medication Sig Dispense Refill Last Dose fluorouraciL (EFUDEX) 5 % Cream daily. CRESTOR 40 mg Tablet Take 40 mg by mouth daily. fluticasone propionate (FLONASE) 50 mcg/actuation [place], Suspension as needed. ascorbic acid, vitamin C, [...] 5 mL Intravenous BID PHENobarbitaL 0.24 mg/kg/dose (Dingess) Oral BID Followed by [START ON 05/18/2022] PHENobarbitaL 0.12 mg/kg/dose (Dingess) Oral BID thiamine 100 mg Oral Daily folic acid 1,000 mcg Oral Daily multivitamin with minerals 1 tablet Oral Daily heparin (porcine) infusion 1,200 Units/hr (05/17/22 4694) Family History: No family history on file. [...] to Hosp-Admission (Current) from 05/15/2022 in 3 [facility] Office Visit from 04/17/2021 in Pain and Spine Center at [facility] Weight 79.8 kg (175 lb 14.8 oz) [...] continue to follow Anne-Marie Larson MD Pager [phone] Clinic: [phone] 05/17/22 6:22 PM Initial Assessments - Ifrah Bell RN - 05/16/2022 10:54 AM EDT Office of Care Management Initial Assessment Ifrah Blel RN reviewed record and discussed patient with [...] spouse would be surrogate decision maker per [place] surrogate decision making law. (Only good for 180 days) Any patient receiving care at [facility] must abide by [place] law. The hierarchy for surrogate decision making [...] (i) The agent with financial power of contracts attorney or a conservator appointed in accordance [...] raised toilet seat Home Address confirmed as: [address] [place] [phone] Social & Family Supports: All names listed below confirmed with patient as Incorrect. Will notify toni to correct. Wifes address is same as and phone is [phone]. Extended Emergency Contact Information Primary Emergency Contact: Ursula Zamora Address: [address] [place] [address] [address] [place] [address] [facility] Relation: Spouse Current Care Provided by: [...] Type: *No Product type* / Secondary Insurance: [facility] Prescription Coverage: Yes Preferred Pharmacy: [id number] - [place], [place] - [address] [facility] [address] [facility] [address] [facility] - [place], [place] - [address] [facility] [address] [facility] [address] Mutual Status: Patient is a : unable to assess Primary Care Provider: Bobby Das MD [phone] Patient/Caregiver Goals of Treatment: to walk again Potential Needs for Transition of Care: none noted per 05/16 IDR Transportation: family will provide Transportation Anticipated: family or friend will provide Concerns to be Addressed: no discharge needs identified Assessment: Patient is admitted to vascular surg service for left lower extremity limb ischemia Plan: Per PT OT recommendations . Has used [employer] in the past. A member of the Care Management team will continue to monitor progress, follow for continuity of care and assist with transition of care planning. Ifrah Bell RN BSN [employer] MakerPhotographic Printer of Care Management Pager [phone] Brief Op Note - Erin Garza MD - 05/15/2022 5:04 PM EDT Brief Operative Note Patient Name: Koko Zamora : [id number] MR#: [id number] Case Date: 05/15/2022 Surgeon: Surgeon(s) and Role: [...] Garza MD - 05/15/2022 2:08 PM EDT [facility] Operative Note Patient Name: Koko Zamora : [id number] MR#: [id number] Case Date: 05/15/2022 Surgeon: Surgeon(s) and Role: [...] Office Visit Vascular Surgery Jing Ghosh, HIRAL [facility] VASCULAR SURGERY [place], [place] [address] (Wo rk) 09/02/2022 Clinical Support Dermatology Thai Lynn MD [facility] [address] JENNY [address]ILLY-DERMAT [place], [place] [address] (Wo rk) 09/02/2022 Procedure visit Dermatology Jace Lynn MD [facility] DR JEN[address] [facility]ILL[facility] [place], [place] [address] (Wo rk) 09/05/2022 Appointment Cardiology Trinity Reid MD [facility] CARDIOLOGY [place], [place] [address] (Wo rk) 09/05/2022 Office Visit Cardiology Trinity Reid MD [facility] CARDIOLOGY [place], [place] [address] (Wo rk) Scheduled Referrals Name [...] Component Value Ref Test Analysis Performed At [facility] Range Method Time Signature VB Text Department: Vascular Surgery Lab VASCUBASE Report Patient: [id number] (KOKO ZAMORA) CPT: 25388 Referring Physician: FITO SUMMERS ?? Phone: Indications: s/p L TAPE MACHINE TAILER endart. Diabetes mellitus: no Findings: Right ?Pressure [...] EDT) athologist Signature Heparin UFH 0.42 IU/mL [facility] LABORATORY Comment: Heparin (anti-Xa) levels should be [...] Address City/State/[place] [address] Differential, Automated (05/21/2022 6:15 AM EDT) athologist Signature Neutrophils % 58.8 % [facility] LABOR[facility]ORY Neutr Abs (ANC) 3.97 1.70 - [facility] 6.10 [facility] x10(3)/[facility] LABORATORY Lymphocytes % 25.2 % [facility] LABOR[facility]ORY Lymphocytes Abs 1.7 0.9 - 3.2 [facility] x10(3)/[facility] LABORATORY Monocytes % 12.9 % [facility] LABOR[facility]ORY Monocyte Abs 0.9 0.3 - 0.9 [facility] x10(3)/[facility] LABORATORY Eosinophils % 2.1 % [facility] LABOR[facility]ORY Eosinophils Abs 0.1 0.0 - 0.4 [facility] x10(3)/[facility] LABORATORY Basophils % 0.4 % [facility] LABORATORY Basophils Abs 0.0 0.0 - 0.1 [facility] x10(3)/[facility] LABORATORY Immature Gran % 0.60 % [facility] LAB[facility] Comment: Immature granulocytes(IG's)percentage an d absolute count will include metamyelocytes, myelocytes, and promyelo cytes. Blood smears from CBCs yielding IG's will be scanned manually for concor danlara. If this scan disagrees with the automated IG or if promyelocytes are not ed, a manual differential will be performed. Rain Gran Abs 0.04 0.00 - 0.04 x10(3)/[facility] Y [facility] LABORATORY Specimen Anatomical Collection Method Collection Time Receive d Time (Source) Location / / Volume Laterality Blood 05/21/2022 6:15 AM 6:38 EDT AM EDT Resulting Agency Comment Spec In Lab Edward Rodríguez MD HEMATOLOGY ORDERABLES Performing Organization Address City/State/[place] [address] (ABNORMAL) Hemogram (05/21/2022 6:15 AM EDT) [facility] gist Method Time Signature WBC 6.8 4.0 - 9.5 [facility] x10(3)/[facility] LABORATORY RBC 3.59 (L) 4.58 - [facility] 5.54 [facility] x10(6)/[facility] LABORATORY Hemoglobin 11.8 (L) 13.7 - [facility] g/dL [facility] LABORATORY Hematocrit 34.5 (L) 40.5 - [facility] 48.5 % [facility] LABORATORY MCV 96.1 (H) 82.9 - [facility] 93.[address] [facility] LABORATORY MCH 32.9 (H) 27.5 - [facility] 32.1 pg [facility] LABORATORY MCHC 34.2 32.0 - [facility] 35.7 g/dL [facility] LABORATORY Platelets 198 145 - 357 [facility] x10(3)/[facility] LABORATORY RDWSD 44.9 36.0 - [facility] [facility] LABORATORY RDWCV 12.6 11.4 - [facility] 13.8 % [facility] LABORATORY MPV 10.0 7.6 - 12.9 [facility] LABORATORY nRBC % Auto 0.3 % [facility] LABORATORY nRBC Abs Auto 0.020 (H) 0.000 - [facility] 0.000 [facility] x10(3)/[facility] LABORATORY Specimen Anatomical Collection Method Collection Time Receive d Time (Source) Location / / Volume Laterality Blood 05/21/2022 6:15 AM 6:38 EDT AM EDT Resulting Agency Comment Spec In Lab Edward Rodríguez MD HEMATOLOGY ORDERABLES Performing Organization Address City/[facility]/ZIP [place] [address] EKG 12 Lead (05/20/2022 7:04 PM EDT) Component Value Ref Range Test Analysis Performed Pathologis t Method Time At Signature Ventricular rate 101 BPM MUSE SYSTEM QRS Duration 116 ms MUSE SYSTEM Q-T Interval 378 ms MUSE SYSTEM QTC Calculated 490 ms MUSE SYSTEM (Bezet) Calculated R [place] -53 degrees MUSE SYSTEM Calculated T [place] 101 degrees MUSE SYSTEM INTERPRETATION Atrial fibrillation [...] SYSTEM - 05/20/2022 7:09 PM ED T ?[facility] ? Cardiac Cathete rization/Intervention Report ? Patient Name: Koko Zamora. ? Procedure Date: 05/20/2022 ? A #: [id number] ? Primary Physician: Abundio Servin ? Case #: [id number] ? File Name: [id number] ? Catheterization Order Number: [id number] ? [facility] ? Final Report [place], [place] ? Patient Name: ? Koko Sullivan. Klarissa uson ? ID#: ?[id number] ? : ?1940 ? Procedure Date: ? [...] procedure was Urgent. 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 Chest pain [...] the LCX. ??Distal flow was decreased ? (LAE Grade 1). ?Right Coronary Artery ? There [...] ?3.5 guiding catheter and a 3.5 Fr [facility] [place] [address] ??20 Mhz. ??Imaging ?was successful. ??Image [...] premounted 2. 75 x 30 mm [place] (AMPARO) was deployed ? with a maximum [...] require ?modification of this regimen. C onsult [facility] Interventional Cardiology for ?questions. ?The 1 year [...] 123 65 - 199 [facility] mg/dL [facility] LABORATORY Comment: Supplemental ranges: <140 mg/dL before meals <180 mg/dL all other times of the day Specimen Anatomical Collection Method Collection Time Receive d Time (Source) Location / / Volume Laterality Blood 05/20/2022 5:42 PM 2 5:42 EDT PM EDT Fito Summers MD POINT OF CARE TEST ORDERABLE S Performing Organization Address City/State/[place] [address] (ABNORMAL) BMP w/fasting Glucose (05/20/2022 10:50 AM EDT) P athologist Signature Glucose 152 (H) 65 - 99 [facility] Fasting mg/dL [facility] LABORATORY Comment: ?Fasting* Glucose Interpretive C riteria [...] of Diabetes Mellitus, Position Statement from the [place] [employer]. ??Diabete s Care, Volume 33, Supplement 1, Nov 2009 BUN 11 10 - 20 mg/dL [facility] LABORATORY Creatinine 0.63 (L) 0.80 - 1.50 mg/dL [facility] LABORATORY Sodium 137 135 - 145 mmol/L [facility] LABORATORY Potassium 3.6 3.5 - 5.0 mmol/L [facility] LABORATORY Comment: Please note: ??Patients with WBC >100,00 0 may have falsely elevated Potassium levels. ??For accurate Potassium quantif ication in these patients send serum separator tube (gold top) for subsequent determinations. ??Contact the Clinical Chemistry Laboratory if there are any qu estions. Chloride 103 98 - 107 mmol/L [facility] LABORATORY CO2 24 22 - 31 mmol/L [facility] LABORATORY Anion Gap 10 5 - 15 mmol/L [facility] LABORATORY Calcium 8.7 8.5 - 10.5 mg/dL [facility] LABORATORY Estimated GFR 97 >=60 mL/min/1.73 m?? [facility] LABORATORY Comment: This patient's estimated GFR [...] Summers MD CHEMISTRY ORDERABLES Performing Organization Address City/[facility]/[place] [address] Heparin (unfractionated) Level (05/20/2022 5:02 AM EDT) P athologist Signature Heparin UFH 0.57 IU/mL [facility] LABORATORY Comment: Heparin (anti-Xa) levels should be [...] Summers MD HEMATOLOGY ORDERABLES Performing Organization Address City/[facility]/[place] [address] (ABNORMAL) Differential, Automated (05/20/2022 5:02 AM EDT) Patholo gist Method Time Signature Neutrophils % 58.1 % [facility] LABORATORY Neutr Abs (ANC) 4.52 1.70 - [facility] 6.10 [facility] x10(3)/[facility] LABORATORY Lymphocytes % 24.1 % [facility] LABORATORY Lymphocytes Abs 1.9 0.9 - 3.2 [facility] x10(3)/[facility] LABORATORY Monocytes % 13.8 % [facility] LABORATORY Monocyte Abs 1.1 (H) 0.3 - 0.9 [facility] x10(3)/[facility] LABORATORY Eosinophils % 2.6 % [facility] LABORATORY Eosinophils Abs 0.2 0.0 - 0.4 [facility] x10(3)/[facility] LABORATORY Basophils % 0.8 % [facility] LABORATORY Basophils Abs 0.1 0.0 - 0.1 [facility] x10(3)/[facility] LABORATORY Immature Gran % 0.60 % [facility] LABORATORY Comment: Immature granulocytes(IG's)percentage an d absolute count will include metamyelocytes, myelocytes, and promyelo cytes. Blood smears from CBCs yielding IG's will be scanned manually for concor dance. If this scan disagrees with the automated IG or if promyelocytes are not ed, a manual differential will be performed. Rain Gran Abs 0.05 (H) 0.00 - 0.04 x10(3)/[facility] LABORATORY Specimen Anatomical Collection Method Collection Time Receive d Time (Source) Location / / Volume Laterality Blood 05/20/2022 5:02 AM 5:19 EDT AM EDT Resulting Agency Comment Spec In Lab Edward Rodríguez MD HEMATOLOGY ORDERABLES Performing Organization Address City/State/[place] [address] (ABNORMAL) Hemogram (05/20/2022 5:02 AM EDT) Analysis Performed At Patho logist Time Signature WBC 7.8 4.0 - 9.5 [facility] x10(3)/[facility] LABORATORY RBC 3.53 (L) 4.58 - [facility] 5.54 [facility] x10(6)/[facility] LABORATORY Hemoglobin 11.4 (L) 13.7 - [facility] 16.[facility] g/dL [facility] LABORATORY Hematocrit 34.3 (L) 40.5 - [facility] 48.5 % [facility] LABORATORY MCV 97.2 (H) 82.9 - [facility] 93.1 fL [facility] LABORATORY MCH 32.3 (H) 27.5 - [facility] 32.1 pg [facility] LABORATORY MCHC 33.2 32.0 - [facility] 35.7 g/dL [facility] LABORATORY Platelets 181 145 - 357 [facility] x10(3)/[facility] LABORATORY RDWSD 46.4 (H) 36.0 - [facility] FAYE 45.[address] [facility] LABORATORY RDWCV 13.0 11.4 - [facility] 13.8 % [facility] LABORATORY MPV 10.4 7.6 - 12.9 [facility] LABORATORY nRBC % Auto 0.0 % [facility] LABORATORY nRBC Abs Auto 0.000 0.000 - [facility] 0.000 [facility] x10(3)/[facility] LABORATORY Specimen Anatomical Collection Method Collection Time Receive d Time (Source) Location / / Volume Laterality Blood 05/20/2022 5:02 AM 5:19 EDT AM EDT Resulting Agency Comment Spec In Lab Edward Rodríguez MD HEMATOLOGY ORDERABLES Performing Organization Address City/State/[place] [address] Heparin (unfractionated) Level (05/19/2022 3:26 AM EDT) P athologist Signature Heparin UFH 0.59 IU/mL [facility] LABORATORY Comment: Heparin (anti-Xa) levels should be [...] Address City/State/[place] [address] (ABNORMAL) Differential, Automated (05/19/2022 3:26 AM EDT) [facility] Method Time Signature Neutrophils % 62.1 % [facility] LABORATORY Neutr Abs (ANC) 4.59 1.70 - [facility] 6.10 [facility] x10(3)/[facility] LABORATORY Lymphocytes % 22.1 % [facility] LABORATORY Lymphocytes Abs 1.6 0.9 - 3.2 [facility] x10(3)/[facility] LABORATORY Monocytes % 13.5 % [facility] LABORATORY Monocyte Abs 1.0 (H) 0.3 - 0.9 [facility] x10(3)/[facility] LABORATORY Eosinophils % 1.3 % [facility] LABORATORY Eosinophils Abs 0.1 0.0 - 0.4 [facility] x10(3)/[facility] LABORATORY Basophils % 0.5 % [facility] LABORATORY Basophils Abs 0.0 0.0 - 0.1 [facility] x10(3)/[facility] LABORATORY Immature Gran % 0.50 % [facility] LABORATORY Comment: Immature granulocytes(IG's)percentage an d absolute count will include metamyelocytes, myelocytes, and promyelo cytes. Blood smears from CBCs yielding IG's will be scanned manually for concor dance. If this scan disagrees with the automated IG or if promyelocytes are not ed, a manual differential will be performed. Rain Gran Abs 0.04 0.00 - 0.04 x10(3)/[facility] LABORATORY Specimen Anatomical Collection Method Collection Time Receive d Time (Source) Location / / Volume Laterality Blood 05/19/2022 3:26 AM 2 3:59 EDT AM EDT Resulting Agency Comment Spec In Lab Edward Rodríguez MD HEMATOLOGY ORDERABLES Performing Organization Address City/State/[place] [address] (ABNORMAL) Hemogram (05/19/2022 3:26 AM EDT) Analysis Performed At Patho logist Time Signature WBC 7.4 4.0 - 9.5 [facility] x10(3)/[facility] LABORATORY RBC 3.74 (L) 4.58 - [facility] 5.54 [facility] x10(6)/[facility] LABORATORY Hemoglobin 12.1 (L) 13.7 - [facility] 16.5 g/dL [facility] LABORATORY Hematocrit 36.4 (L) 40.5 - [facility] 48.5 % [facility] LABORATORY MCV 97.3 (H) 82.9 - [facility] 93.[address] [facility] LABORATORY MCH 32.4 (H) 27.5 - [facility] 32.1 pg [facility] LABORATORY MCHC 33.2 32.0 - [facility] 35.7 g/dL [facility] LABORATORY Platelets 168 145 - 357 [facility] x10(3)/[facility] LABORATORY RDWSD 46.9 (H) 36.0 - [facility] 45.[address] [facility] LABORATORY RDWCV 13.0 11.4 - [facility] 13.8 % [facility] LABORATORY MPV 10.5 7.6 - 12.9 [facility] LABORATORY nRBC % Auto 0.0 % [facility] LABORATORY nRBC Abs Auto 0.000 0.000 - [facility] 0.000 [facility] x10(3)/[facility] LABORATORY Specimen Anatomical Collection Method Collection Time Receive d Time (Source) Location / / Volume Laterality Blood 05/19/2022 3:26 AM 3:59 EDT AM EDT Resulting Agency Comment Spec In Lab Edward Rodríguez MD HEMATOLOGY ORDERABLES Performing Organization Address City/State/ZIP Code Phon e Number [place] [id number] HOSPITAL LAB[address]ORY Drive TSH (05/18/2022 8:00 PM EDT) P athologist Signature TSH 2.27 0.27 - 4.20 [facility] mcIU/mL [facility] LABORATORY Comment: Reference Interval (mcIU/mL): Females: ??First Trimester: 0.23-3.88 ??Second Trimester: 0.22-3.90 ??Third Trimester: 0.44-4.66 Specimen Anatomical Collection Method Collection Time Receive d Time (Source) Location / / Volume Laterality Blood 05/18/2022 8:00 PM 8:06 EDT PM EDT Resulting Agency Comment Spec In Lab Fito Summers MD CHEMISTRY ORDERABLES Performing Organization Address City/State/ZIP Code Phon e Number [place] [id number]OSPITAL LAB[address]ORY Drive (ABNORMAL) Differential, Automated (05/18/2022 3:34 AM EDT) [facility] Method Time Signature Neutrophils % 67.2 % [facility] LABORATORY Neutr Abs (ANC) 5.89 1.70 - [facility] 6.10 [facility] x10(3)/[facility] LABORATORY Lymphocytes % 17.1 % [facility] LABORATORY Lymphocytes Abs 1.5 0.9 - 3.2 [facility] x10(3)/[facility] LABORATORY Monocytes % 13.6 % [facility] LABORATORY Monocyte Abs 1.2 (H) 0.3 - 0.9 [facility] x10(3)/[facility] LABORATORY Eosinophils % 1.0 % [facility] LABORATORY Eosinophils Abs 0.1 0.0 - 0.4 [facility] x10(3)/[facility] LABORATORY Basophils % 0.6 % [facility] LABORATORY Basophils Abs 0.0 0.0 - 0.1 [facility] x10(3)/[facility] LABORATORY Immature Gran % 0.50 % [facility] LABORATORY Comment: Immature granulocytes(IG's)percentage an d absolute count will include metamyelocytes, myelocytes, and promyelo cytes. Blood smears from CBCs yielding IG's will be scanned manually for concor dance. If this scan disagrees with the automated IG or if promyelocytes are not ed, a manual differential will be performed. Rain Gran Abs 0.04 0.00 - 0.04 x10(3)/[facility] MAR Y [facility] LABORATORY Specimen Anatomical Collection Method Collection Time Receive d Time (Source) Location / / Volume Laterality Blood 05/18/2022 3:34 AM 2 3:48 EDT AM EDT Resulting Agency Comment Spec In Lab Edward Rodríguez MD HEMATOLOGY ORDERABLES Performing Organization Address City/State/[place] [address] (ABNORMAL) Hemogram (05/18/2022 3:34 AM EDT) Analysis Performed At Patho logist Time Signature WBC 8.8 4.0 - 9.5 [facility] x10(3)/[facility] LABORATORY RBC 3.45 (L) 4.58 - [facility] 5.54 [facility] x10(6)/[facility] LABORATORY Hemoglobin 11.2 (L) 13.7 - [facility] 16.5 g/dL [facility] LABORATORY Hematocrit 33.0 (L) 40.5 - [facility] 48.5 % [facility] LABORATORY MCV 95.7 (H) 82.9 - [facility] 93.[address] [facility] LABORATORY MCH 32.5 (H) 27.5 - [facility] 32.1 pg [facility] LABORATORY MCHC 33.9 32.0 - [facility] 35.7 g/dL [facility] LABORATORY Platelets 130 (L) 145 - 357 [facility] x10(3)/[facility] LABORATORY RDWSD 46.2 (H) 36.0 - [facility] 45.[address] [facility] LABORATORY RDWCV 13.2 11.4 - [facility] 13.8 % [facility] LABORATORY MPV 10.8 7.6 - 12.9 [facility] LABORATORY nRBC % Auto 0.0 % [facility] LABORATORY nRBC Abs Auto 0.000 0.000 - [facility] 0.000 [facility] x10(3)/[facility] LABORATORY Specimen Anatomical Collection Method Collection Time Receive d Time (Source) Location / / Volume Laterality Blood 05/18/2022 3:34 AM 2 3:48 EDT AM EDT Resulting Agency Comment Spec In Lab Edward Rodríguez MD HEMATOLOGY ORDERABLES Performing Organization Address City/[facility]/[place] [address] Heparin (unfractionated) Level (05/18/2022 3:34 AM EDT) athologist Signature Heparin UFH 0.59 IU/mL [facility] LABORATORY Comment: Heparin (anti-Xa) levels should be [...] Summers MD HEMATOLOGY ORDERABLES Performing Organization Address City/[facility]/[place] [address] Magnesium (05/17/2022 3:33 AM EDT) P athologist Signature Magnesium 0.76 0.69 - 1.07 [facility] mmol/L [facility] LABORATORY Specimen Anatomical Collection Method Collection Time Receive d Time (Source) Location / / Volume Laterality Blood Venous Draw / 05/17/2022 3:33 AM 05/17/20 22 4:05 Unknown EDT AM EDT Resulting Agency Comment Spec In Lab Dottie Hill APRN CHEMISTRY ORDERABLES Performing Organization Address City/[facility]/[place] [address] (ABNORMAL) Basic Metabolic Panel (non-fasting) (05/17/2022 3:33 AM EDT) P athologist Signature Glucose Lvl 158 65 - 199 [facility] mg/dL [facility] LABORATORY Comment: Diabetes: >=200 mg/dL plus symp toms BUN 12 10 - 20 mg/dL [facility] LABORATORY Creatinine 0.74 (L) 0.80 - 1.50 mg/dL [facility] LABORATORY Sodium 137 135 - 145 mmol/L [facility] LABORATORY Potassium 3.5 3.5 - 5.0 mmol/L [facility] LABORATORY Comment: Please note: ??Patients with WBC >100,00 0 may have falsely elevated Potassium levels. ??For accurate Potassium quantif ication in these patients send serum separator tube (gold top) for subsequent determinations. ??Contact the Clinical Chemistry Laboratory if there are any qu estions. Chloride 102 98 - 107 mmol/L [facility] LABORATORY CO2 25 22 - 31 mmol/L [facility] LABORATORY Anion Gap 10 5 - 15 mmol/L [facility] LABORATORY Calcium 8.4 (L) 8.5 - 10.5 mg/dL [facility] LABORATORY Estimated GFR 92 >=60 mL/min/1.73 m?? [facility] LABORATORY Comment: This patient's estimated GFR [...] Address City/State/Z[place] [address] (ABNORMAL) Differential, Automated (05/17/2022 3:33 AM EDT) [facility] Method Time Signature Neutrophils % 65.5 % [facility] LABORATORY Neutr Abs (ANC) 6.84 (H) 1.70 - [facility] 6.10 [facility] x10(3)/[facility] LABORATORY Lymphocytes % 19.7 % [facility] LABORATORY Lymphocytes Abs 2.1 0.9 - 3.2 [facility] x10(3)/[facility] LABORATORY Monocytes % 13.1 % [facility] LABORATORY Monocyte Abs 1.4 (H) 0.3 - 0.9 [facility] x10(3)/[facility] LABORATORY Eosinophils % 0.6 % [facility] LABORATORY Eosinophils Abs 0.1 0.0 - 0.4 [facility] x10(3)/[facility] LABORATORY Basophils % 0.6 % [facility] LABORATORY Basophils Abs 0.1 0.0 - 0.1 [facility] x10(3)/[facility] LABORATORY Immature Gran % 0.50 % [facility] LABORATORY Comment: Immature granulocytes(IG's)percentage an d absolute count will include metamyelocytes, myelocytes, and promyelo cytes. Blood smears from CBCs yielding IG's will be scanned manually for concor dance. If this scan disagrees with the automated IG or if promyelocytes are not ed, a manual differential will be performed. Rain Gran Abs 0.05 (H) 0.00 - 0.04 x10(3)/[facility] LABORATORY Specimen Anatomical Collection Method Collection Time Receive d Time (Source) Location / / Volume Laterality Blood 05/17/2022 3:33 AM 3:53 EDT AM EDT Resulting Agency Comment Spec In Lab Edward Rodríguez MD HEMATOLOGY ORDERABLES Performing Organization Address City/[facility]/[place] [address] (ABNORMAL) Hemogram (05/17/2022 3:33 AM EDT) Analysis Performed At Patho logist Time Signature WBC 10.4 (H) 4.0 - 9.5 [facility] x10(3)/[facility] LABORATORY RBC 3.72 (L) 4.58 - [facility] 5.54 [facility] x10(6)/[facility] LABORATORY Hemoglobin 12.0 (L) 13.7 - [facility] 16.5 g/dL [facility] LABORATORY Hematocrit 36.4 (L) 40.5 - [facility] 48.5 % [facility] LABORATORY MCV 97.8 (H) 82.9 - [facility] 93.[address] [facility] LABORATORY MCH 32.3 (H) 27.5 - [facility] 32.1 pg [facility] LABORATORY MCHC 33.0 32.0 - [facility] 35.7 g/dL [facility] LABORATORY Platelets 149 145 - 357 [facility] x10(3)/[facility] LABORATORY RDWSD 48.7 (H) 36.0 - [facility] 45.[address] [facility] LABORATORY RDWCV 13.5 11.4 - [facility] 13.8 % [facility] LABORATORY MPV 10.6 7.6 - 12.9 [facility] LABORATORY nRBC % Auto 0.0 % [facility] LABORATORY nRBC Abs Auto 0.000 0.000 - [facility] 0.000 [facility] x10(3)/[facility] LABORATORY Specimen Anatomical Collection Method Collection Time Receive d Time (Source) Location / / Volume Laterality Blood 05/17/2022 3:33 AM 3:53 EDT AM EDT Resulting Agency Comment Spec In Lab Edward Rodríguez MD HEMATOLOGY ORDERABLES Performing Organization Address City/State/[place] [address] (ABNORMAL) Urinalysis Microscopic Exam (05/16/2022 11:15 PM EDT) P athologist Signature RBC UA 8 (H) 0 - 3 /HPF [facility] LABORATORY WBC UA 2 0 - 3 /HPF [facility] LABORATORY Specimen Anatomical Collection Method Collection Time Receive d Time (Source) Location / / Volume Laterality Clean Catch 05/16/2022 11:15 05/16/2022 Urine PM EDT 11:30 PM EDT Resulting Agency Comment Spec In Lab Barbie Ashraf MD URINE ORDERABLES Performing Organization Address City/State/Z[place] [address] (ABNORMAL) Urinalysis with reflex Culture (05/16/2022 11:15 PM EDT) [facility] Method Time Signature Glucose UA Negative Negative [facility] mg/dL [facility] Protein UA Negative Negative [facility] mg/dL [facility] Bilirubin UA Negative Negative [facility] mg/dL [facility] Comment: Clinical correlation required [...] LABORATORY Blood UA Small (A) Negative mg/dL [facility] Ketones UA Trace (A) Negative mg/dL [facility] Nitrite UA Negative Negative [facility] Leukocytes UA Negative Negative [facility] LABORATORY Appearance UA Clear Clear [facility] Spec Jasper UA 1.021 1.005 - 1.030 [facility] Color UA Yellow Yellow [facility] Culture Reflexed No [facility] Specimen Anatomical Collection Method Collection Time Receive d Time (Source) Location / / Volume Laterality Clean Catch 05/16/2022 11:15 05/16/2022 Urine PM EDT 11:30 PM EDT Resulting Agency Comment Spec In Lab Fito Summers MD URINE ORDERABLES Performing Organization Address City/State/ZIP [place] [address] Heparin (unfractionated) Level (05/16/2022 10:59 PM EDT) P athologist Signature Heparin UFH 0.65 IU/mL [facility] Comment: Specimen drawn more than one [...] Organization Address City/State/[place] [address] XR Chest One View [...] who have questions please contact the health vehicle care specialist that requested your imaging first. ? Electronically signed by: Tiffanie George MD , [facility] ([phone]), at 05/16/2022 9:27 PM Narrative 05/16/2022 9:27 [...] ho have questions please contact the health vehicle care specialist that requested your imaging first. Electronically signed by: Tiffanie George MD , [facility] ([phone]), at 05/16/2022 9:27 PM Fito Summers MD IMG DX ORDERABLES EKG 12 Lead (05/16/2022 8:57 PM EDT) Component Value Ref Range Test Analysis Performed Pathologis t Method Time At Signature Ventricular rate 117 BPM MUSE SYSTEM QRS Duration 112 ms MUSE SYSTEM Q-T Interval 346 ms MUSE SYSTEM QTC Calculated 482 ms MUSE SYSTEM (Bezet) Calculated R [place] -48 degrees MUSE SYSTEM Calculated T [place] 111 degrees MUSE SYSTEM INTERPRETATION Atrial fibrillation [...] EDT) athologist Signature Heparin UFH 0.53 IU/mL [facility] Comment: Heparin (anti-Xa) levels should be [...] Address City/State/[place] [address] ECHOCARDIOGRAM COMPLETE W CONTRAST (05/16/2022 12:49 PM EDT) athologist Signature EF 28 [facility] Specimen (Source) Anatomical Collection Method Collection Time Re ceived Time Location / / Volume Laterality 05/16/2022 11:22 AM EDT Narrative HEARTLAB SYSTEM - 05/16/2022 1:54 PM EDT ?[facility] ?[address] ? [place] [address] ?Voice: ?Fax: ? Echocardiogram Report Name: KOKO ZAMORA ?Study Date: 05/16/2022 11:22 AM ? Patient Location: 3WST 0303 B : 1940 ? Height: 67.5 in ? Account: [id number] Age: 81 yrs ? Weight: 176 lb Gender: Male ?BSA: 1.9 m2 Ordering Physician: FITO SUMMERS Referring Physician: MALI FLORIAN Performed By: Jolene Bernard RDCS Exam Location: [facility]. Interpretation Summary Left ventricle is mildly dilated. [...] and LV systolic dysfunction are new. Procedure Complete-[id number]. Image enhancement Optiso n was used for [...] note might be different from the original. [facility] [address] [place] [address] Voice: Fax: Echocardiogram Report Name: NIURKA KOKO Sullivan Study Date: 05/2022 11:22 AM Patient Location: [address] [place] [address] : 1940 Height: 67.5 in Account: [id number] Age: 81 yrs Weight: 176 lb Gender: Male BSA: 1.9 m2 Ordering Physician: FITO SUMMERS Referring Physician: MALI FLORIAN Performed By: Jolene Bernard RDCS Exam Location: [facility]. Interpretation Summary Left ventricle is mildly dilated. [...] and LV systolic dysfunction are new. Procedure Complete-[id number]. Image enhancement Optiso n was used for [...] (ABNORMAL) Differential, Automated (05/16/2022 3:01 AM EDT) [facility] gist Method Time Signature Neutrophils % 78.8 % [facility] Neutr Abs (ANC) 9.11 (H) 1.70 - [facility] 6.10 [facility] x10(3)/[facility] L LABORATORY Lymphocytes % 9.4 % [facility] Lymphocytes Abs 1.1 0.9 - 3.2 [facility] x10(3)/[facility] LABORATORY Monocytes % 10.9 % [facility] Monocyte Abs 1.3 (H) 0.3 - 0.9 [facility] x10(3)/[facility] LABORATORY Eosinophils % 0.0 % [facility] Eosinophils Abs 0.0 0.0 - 0.4 [facility] x10(3)/[facility] [place] LABORATORY Basophils % 0.3 % [facility] Basophils Abs 0.0 0.0 - 0.1 [facility] x10(3)/[facility] LABORATORY Immature Gran % 0.60 % [facility] Comment: Immature granulocytes(IG's)percentage an d absolute count will include metamyelocytes, myelocytes, and promyelo cytes. Blood smears from CBCs yielding IG's will be scanned manually for concor dance. If this scan disagrees with the automated IG or if promyelocytes are not ed, a manual differential will be performed. Rain Gran Abs 0.07 (H) 0.00 - 0.04 x10(3)/[facility] LABORATORY Specimen Anatomical Collection Method Collection Time Receive d Time (Source) Location / / Volume Laterality Blood 05/16/2022 3:01 AM 3:36 EDT AM EDT Resulting Agency Comment Spec In Lab Erin Garza MD HEMATOLOGY ORDERABLES Performing Organization Address City/State/[place] [address] (ABNORMAL) Hemogram (05/16/2022 3:01 AM EDT) Analysis Performed At Patho logist Time Signature WBC 11.6 (H) 4.0 - 9.5 [facility] x10(3)/[facility] LABORATORY RBC 3.62 (L) 4.58 - [facility] 5.54 [facility] x10(6)/[facility] LABORATORY Hemoglobin 12.0 (L) 13.7 - [facility] 16.5 g/dL [facility] Hematocrit 35.3 (L) 40.5 - [facility] 48.5 % [facility] MCV 97.5 (H) 82.9 - [facility] 93.[address] [facility] LABORATORY MCH 33.1 (H) 27.5 - [facility] 32.1 pg [facility] MCHC 34.0 32.0 - [place] [place] 35.7 g/dL [facility] Platelets 151 145 - 357 [facility] x10(3)/[facility] LABORATORY RDWSD 47.6 (H) 36.0 - [place] [place] 45.[address] [facility] LABORATORY RDWCV 13.3 11.4 - [facility] 13.8 % [facility] MPV 10.5 7.6 - 12.9 [facility] nRBC % Auto 0.0 % [facility] nRBC Abs Auto 0.000 0.000 - [place] 0.000 [facility] x10(3)/[facility] LABORATORY Specimen Anatomical Collection Method Collection Time Receive d Time (Source) Location / / Volume Laterality Blood 05/16/2022 3:01 AM 2 3:36 EDT AM EDT Resulting Agency Comment Spec In Lab Erin Garza MD HEMATOLOGY ORDERABLES Performing Organization Address City/State/ZIP Code Phon e Number [address] Phosphorus (05/16/2022 3:01 AM EDT) P athologist Signature Phosphorus 3.7 2.5 - 4.5 [facility] mg/dL [facility] Specimen Anatomical Collection Method Collection Time Receive d Time (Source) Location / / Volume Laterality Blood 05/16/2022 3:01 AM 2 3:36 EDT AM EDT Resulting Agency Comment Spec In Lab Fito Summers MD CHEMISTRY ORDERABLES Performing Organization Address City/State/ZIP Code Phon e Number [address] Magnesium (05/16/2022 3:01 AM EDT) P athologist Signature Magnesium 0.77 0.69 - 1.07 [facility] mmol/L [facility] Specimen Anatomical Collection Method Collection Time Receive d Time (Source) Location / / Volume Laterality Blood 05/16/2022 3:01 AM 2 3:36 EDT AM EDT Resulting Agency Comment Spec In Lab Fito Summers MD CHEMISTRY ORDERABLES Performing Organization Address City/State/[place] [address] (ABNORMAL) Basic Metabolic Panel (non-fasting) (05/16/2022 3:01 AM EDT) P athologist Signature Glucose Lvl 222 (H) 65 - 199 [facility] mg/dL [facility] Comment: Diabetes: >=200 mg/dL plus symp toms BUN 12 10 - 20 mg/dL [facility] Creatinine 0.66 (L) 0.80 - 1.50 mg/dL [facility] Sodium 138 135 - 145 mmol/L [facility] Potassium 4.5 3.5 - 5.0 mmol/L [facility] Comment: Please note: ??Patients with WBC >100,00 0 may have falsely elevated Potassium levels. ??For accurate Potassium quantif ication in these patients send serum separator tube (gold top) for subsequent determinations. ??Contact the Clinical Chemistry Laboratory if there are any qu estions. Chloride 108 (H) 98 - 107 mmol/L [facility] CO2 22 22 - 31 mmol/L [facility] Anion Gap 8 5 - 15 mmol/L [facility] Calcium 8.2 (L) 8.5 - 10.5 mg/dL [facility] Estimated GFR 95 >=60 mL/min/1.73 m?? [facility] Comment: This patient's estimated GFR [...] Address City/State/[place] [address] (ABNORMAL) BLOOD GAS 2 ARTERIAL (05/15/2022 3:33 PM EDT) Analysis Performed At Patho logist Time Signature pH Art 7.33 (L) 7.35 - [facility] 7.45 [facility] pCO2 Art 41 35 - 45 [facility] LABORATORY pO2 Art 131 (H) 85 - 104 [facility] LABORATORY HCO3 Art 21.1 20.0 - [facility] 26.0 [facility] mmol/[facility] BE Art -4.8 (L) -3.0 - 3.0 [facility] mmol/L [facility] Hgb Blood Gas 13.4 (L) 13.7 - [facility] 16.5 g/dL [facility] O2HB Art 96.9 94.0 - [facility] 97.0 % [facility] COHB Art 1.4 % [facility] Comment: Nonsmokers: 0.5-1.5% COHB Smokers: Variable, but usually less than 10% Toxic: 20-30% COHB Lethal: Greater than 60% COHB METHB Art 0.3 <=1.5 % [facility] Na Whole Blood 139 135 - 145 mmol/L [facility] K Whole Blood 3.8 3.5 - 5.0 mmol/L [facility] Comment: Please note: Patients with WBC >100,000 may have falsely elevated Potassium levels. Contact the Clinical Chemistry L aboratory if there are any questions. ICa Whole Blood 1.32 1.15 - 1.33 mmol/L [facility] Comment: Note: ??Total bilirubin higher than 20 m g/dL may lead to falsely low ionized calcium. CL Whole Blood 113 (H) 98 - 107 mmol/L [facility] Gluc Whole Bld 136 65 - 199 mg/dL [facility] Comment: Diabetes: >=200 mg/dL plus symp toms. Lactate WB 2.0 0.5 - 2.2 mmol/L [facility] Specimen Anatomical Collection Method Collection Time Receive d Time (Source) Location / / Volume Laterality Blood 05/15/2022 3:33 PM 3:[address] Jamel Torre MD CHEMISTRY ORDERABLES Performing Organization Address City/State/[place] [address] (ABNORMAL) BLOOD GAS 2 ARTERIAL (05/15/2022 2:06 PM EDT) Analysis Performed At Patho logist Time Signature pH Art 7.39 7.35 - [facility] 7.45 [facility] pCO2 Art 35 35 - 45 [facility] LABORATORY pO2 Art 135 (H) 85 - 104 [facility] LABORATORY HCO3 Art 20.8 20.0 - [facility] 26.0 [facility] mmol/L [facility] LABORATORY BE Art -4.2 (L) -3.0 - 3.0 [facility] mmol/L [facility] Hgb Blood Gas 14.5 13.7 - [facility] 16.5 g/dL [facility] O2HB Art 97.2 (H) 94.0 - [facility] 97.0 % [facility] COHB Art 1.2 % [facility] Comment: Nonsmokers: 0.5-1.5% COHB Smokers: Variable, but usually less than 10% Toxic: 20-30% COHB Lethal: Greater than 60% COHB METHB Art 0.3 <=1.5 % [facility] Na Whole Blood 140 135 - 145 mmol/L [facility] K Whole Blood 3.8 3.5 - 5.0 mmol/L [facility] Comment: Please note: Patients with WBC >100,000 may have falsely elevated Potassium levels. Contact the Clinical Chemistry L aboratory if there are any questions. ICa Whole Blood 1.12 (L) 1.15 - 1.33 mmol/L [facility] Comment: Note: ??Total bilirubin higher than 20 m g/dL may lead to falsely low ionized calcium. CL Whole Blood 109 (H) 98 - 107 mmol/L [facility] Gluc Whole Bld 152 65 - 199 mg/dL [facility] Comment: Diabetes: >=200 mg/dL plus symp toms. Lactate WB 1.5 0.5 - 2.2 mmol/L [facility] Specimen Anatomical Collection Method Collection Time Receive d Time (Source) Location / / Volume Laterality Blood 05/15/2022 2:06 PM 2:[address] Jamel Torre MD CHEMISTRY ORDERABLES Performing Organization Address City/[facility]/[place] [address] (ABNORMAL) Prothrombin Time (05/15/2022 12:30 PM EDT) athologist Signature PT 12.9 (H) 9.4 - 12.5 [facility] LABORATORY INR 1.1 [facility] Comment: An INR <2.0 indicates [...] Morales DO HEMATOLOGY ORDERABLES Performing Organization Address City/[facility]/[place] [address] (ABNORMAL) APTT (05/15/2022 12:30 PM EDT) P athologist Signature PTT 76 (H) 25 - 37 sec [facility] Comment: The PTT is NOT [...] Daquan Claudiocy HEMATOLOGY ORDERABLES Performing Organization Address City/[facility]/ZIP Code Phon e Number [address] Gold Tube HOLD (05/15/2022 12:20 PM EDT) athologist Signature Gold Hold Sample in [facility]. [facility] Specimen Anatomical Collection Method Collection Time Receive d Time (Source) Location / / Volume Laterality Blood No Charge / 05/15/2022 12:20 05/15/2022 Unknown PM EDT 12:20 PM EDT Lc TRIPP CHEMISTRY ORDERABLES Performing Organization Address City/[facility]/[place] [address] Type and Screen Validity (05/15/2022 12:00 PM EDT) [facility] Method Time Signature T&S only valid [facility] Comment: This Type and Screen result is only valid at the [facility] Hospital Specimen Anatomical Collection Method Collection Time Receive d Time (Source) Location / / Volume Laterality Blood 05/15/2022 12:00 05/15/2022 PM EDT 12:17 PM EDT Resulting Agency Comment Spec In Lab Lc TRIPP BLOOD BANK ORDERABLES Performing Organization Address City/[facility]/ZIP Code Phon e Number [address] ABORH Recheck Status (05/15/2022 12:00 PM EDT) [facility] Method Time Signature ABORH Recheck Order Placed [facility] K Order [facility] ABORH Type Complete [facility] LABORATORY Specimen Anatomical Collection Method Collection Time Receive d Time (Source) Location / / Volume Laterality Blood 05/15/2022 12:00 05/15/2022 PM EDT 12:17 PM EDT Resulting Agency Comment Spec In Lab Lc Dominick Kimberly PA BLOOD BANK ORDERABLES Performing Organization Address City/State/[place] [address] CK (05/15/2022 12:00 PM EDT) P athologist Signature CK, Total 87 0 - 200 [facility] unit/L [facility] Specimen Anatomical Collection Method Collection Time Receive d Time (Source) Location / / Volume Laterality Blood Venous Draw / 05/15/2022 12:00 05/15/2022 Unknown PM EDT 12:19 PM EDT Resulting Agency Comment Spec In Lab Fito Summers MD CHEMISTRY ORDERABLES Performing Organization Address City/State/ZIP Code Phon e Number [address] Antibody screen (05/15/2022 12:00 PM EDT) [facility] Time Signature Ab Screen Negative [facility] LABORATORY Expires at 05/18/2022 [facility] on: [facility] Specimen Anatomical Collection Method Collection Time Receive d Time (Source) Location / / Volume Laterality Blood 05/15/2022 12:00 05/15/2022 PM EDT 12:17 PM EDT Resulting Agency Comment Spec In Lab Lc Harris PA BLOOD BANK ORDERABLES Performing Organization Address City/State/ZIP Code Phon e Number [address] ABO/Rh Typing (05/15/2022 12:00 PM EDT) P athologist Signature ABORh Type O Pos [facility] Specimen Anatomical Collection Method Collection Time Receive d Time (Source) Location / / Volume Laterality Blood 05/15/2022 12:00 05/15/2022 PM EDT 12:17 PM EDT Resulting Agency Comment Spec In Lab Lc TRIPP BLOOD BANK ORDERABLES Performing Organization Address City/State/Z[place] [address] (ABNORMAL) Differential, Automated (05/15/2022 12:00 PM EDT) [facility] Method Time Signature Neutrophils % 79.4 % [facility] Neutr Abs (ANC) 7.49 (H) 1.70 - [facility] 6.10 [facility] x10(3)/[facility] LABORATORY Lymphocytes % 11.3 % [facility] Lymphocytes Abs 1.1 0.9 - 3.2 [facility] x10(3)/[facility] LABORATORY Monocytes % 7.8 % [facility] Monocyte Abs 0.7 0.3 - 0.9 [facility] x10(3)/[facility] LABORATORY Eosinophils % 0.6 % [facility] Eosinophils Abs 0.1 0.0 - 0.4 [facility] x10(3)/[facility] LABORATORY Basophils % 0.6 % [facility] Basophils Abs 0.1 0.0 - 0.1 [facility] x10(3)/[facility] LABORATORY Immature Gran % 0.30 % [facility] Comment: Immature granulocytes(IG's)percentage an d absolute count will include metamyelocytes, myelocytes, and promyelo cytes. Blood smears from CBCs yielding IG's will be scanned manually for concor dance. If this scan disagrees with the automated IG or if promyelocytes are not ed, a manual differential will be performed. Rain Gran Abs 0.03 0.00 - 0.04 x10(3)/[facility] LABORATORY Specimen Anatomical Collection Method Collection Time Receive d Time (Source) Location / / Volume Laterality Blood 05/15/2022 12:00 05/15/2022 PM EDT 12:19 PM EDT Resulting Agency Comment Spec In Lab Lc TRIPP HEMATOLOGY ORDERABLES Performing Organization Address City/State/Z[place] [address] (ABNORMAL) Hemogram (05/15/2022 12:00 PM EDT) Analysis Performed At Patho logist Time Signature WBC 9.4 4.0 - 9.5 [facility] x10(3)/[facility] LABORATORY RBC 4.48 (L) 4.58 - [facility]AY[facility] 5.54 [facility] x10(6)/[facility] LABORATORY Hemoglobin 14.5 13.7 - [facility] g/dL [facility] Hematocrit 42.4 40.5 - [facility] 48.5 % [facility] MCV 94.6 (H) 82.9 - [facility] 93.[address] [facility] LABORATORY MCH 32.4 (H) 27.5 - [facility] 32.1 pg [facility] MCHC 34.2 32.0 - [facility] 35.7 g/dL [facility] Platelets 209 145 - 357 [facility] x10(3)/[facility] LABORATORY RDWSD 45.9 (H) 36.0 - [facility] 45.[address] [facility] LABORATORY RDWCV 13.1 11.4 - [facility] 13.8 % [facility] MPV 10.5 7.6 - 12.9 [facility] LABORATORY nRBC % Auto 0.0 % [facility] nRBC Abs Auto 0.000 0.000 - [facility] 0.000 [facility] x10(3)/[facility] LABORATORY Specimen Anatomical Collection Method Collection Time Receive d Time (Source) Location / / Volume Laterality Blood 05/15/2022 12:00 05/15/2022 PM EDT 12:19 PM EDT Resulting Agency Comment Spec In Lab Lc TRIPP HEMATOLOGY ORDERABLES Performing Organization Address City/State/[place] [address] (ABNORMAL) Basic Metabolic Panel (non-fasting) (05/15/2022 12:00 PM EDT) P athologist Signature Glucose Lvl 203 (H) 65 - 199 [facility] mg/dL [facility] Comment: Diabetes: >=200 mg/dL plus symp toms BUN 16 10 - 20 mg/dL [facility] Creatinine 0.84 0.80 - 1.50 mg/dL [facility]OR[facility] Sodium 141 135 - 145 mmol/L [facility] Potassium 4.7 3.5 - 5.0 mmol/L [facility] Comment: Please note: ??Patients with WBC >100,00 0 may have falsely elevated Potassium levels. ??For accurate Potassium quantif ication in these patients send serum separator tube (gold top) for subsequent determinations. ??Contact the Clinical Chemistry Laboratory if there are any qu estions. Chloride 107 98 - 107 mmol/L [facility] CO2 23 22 - 31 mmol/L [facility] Anion Gap 11 5 - 15 mmol/L [facility] Calcium 8.5 8.5 - 10.5 mg/dL [facility] Estimated GFR 89 >=60 mL/min/1.73 m?? [facility] Comment: This patient's estimated GFR [...] Address City/State/[place] [address] documented in this encounter [...] mg 0838 (Given - Provider : Caroline aZmora, DION)2008 (Given - Provider: Nuris Lester, DION) [...] - Reason: Transfer to a Procedural area)1955 ([facility] Unhold - Provider: Admin Adt) 10 mg, [...] - Reason: Transfer to a Procedural area)1955 ([facility] Unhold - Provider: Admin Adt) 0-8,000 Units, Intravenous, BOLUS PER [facility] PROTOCOL, Starting on Brandi 05/16/22 at 0758, [...] - Reason: Transfer to a Procedural area)1955 ([facility] Unhold - Provider: Admin Adt) 3 mL, [...] - Pr ovider: Emily Sauceda RN) 1750 ([facility] Hold - Provider: Admin Adt - R lexie: Transfer to a Procedural area)1955 ([facility] Unhold - Provider: Admin Adt) 5 mg, Intravenous, EVERY 5 MIN PRN, Star ting on Fri05/19/22 at 0506, Until Fri05/21/22 at 1743, Elevated Heart Rate, up to 3 doses for HR >110 midazolam (pf) (Versed) (1 mg/mL) multi-dose injection ([facility]) 1713 (Given - Provider: Abundio Servin [...] - Reason: Transfer to a Procedural area)1955 ([facility] Unhold - Provider: Admin Adt) 10-15 mg, Oral, EVERY 4 HOURS PRN, Start ing on Fri05/17/22 at 0655, Until Fri05/21/22 at 1743, Pain, severe pain (7-10), Initial dose 10mg. If pain control not adequate in 60 minutes, give additional 5mg, Routine oxyCODONE (Roxicodone) tablet 5-10 mg(Linked Group 2) 1750 (JAN Hold - Provider: Admin Adt - Reason: Transfer to a Procedural area)1955 ([facility] Unhold - Provider: Admin Adt) 5-10 mg, [...]
Routine documented in this encounter Care Teams Release Manager Relationship Specialty Start Date End Date Bobby Das MD PCP - General 10/02/[address] [place] [address] [place] [address] documented as of this encounter
--- OUTSIDE RECORDS SUMMARY | 2022-06-23 03:50 | XMS_ITS | Encounter Summary ---
:1940 Author Organization [facility] Address [facility] [place] [address] Care Team Providers Name Role Phone Bobby Das MD Primary Care Provider Reason for Visit - Closed Specialty Diagnoses / Procedures Referred By Contact Refer red To Contact Procedures Bobby Das MD Film Library- Storage Only DX [address] [place] [phone] Referral ID Status Reason Start Date Expiration Date Visits Requ ested Visits Authorized [id number] Closed 04/13/2021 04/13/2022 1 1 Encounter Details Date Type Department Care Team Description 01/31/2021 Ancillary Procedure Radiology Library at Bobby Almaguer MD [address] [phone] (Rebekah rojas) Social History Tobacco Use Types [...] Jing Ghosh APRN [facility] DR VASCULAR SURGERY [place], [place] [address] (Wo rk) 09/02/2022 Clinical Support Dermatology Thai Lynn MD [facility] DR JENNY BILLY-DERMAT [place], [place] [address] (Wo rk) 09/02/2022 Procedure visit Dermatology Jace Lynn MD [facility] DR JENNY BILLY-DERMAT [place], [place] [address] (Wo rk) 09/05/2022 Appointment Cardiology Trinity Reid MD [facility] CARDIOLOGY [place], [place] [address] (Wo rk) 09/05/2022 Office Visit Cardiology Trinity Reid MD [facility] CARDIOLOGY [place], [place] [address] (Wo rk) documented as of [...] Address City/State/ZIP Code Phon e Number RAD [place], [place] documented in this encounter Visit Diagnoses Not on filedocumented in this encounter Care Teams Stringed Instrument Repairer Relationship Specialty Start Date End Date Bobby Das MD PCP - General 10/02/[address] [place] [address] [place] [address] documented as of this encounter
--- OUTSIDE RECORDS SUMMARY | 2022-06-23 03:51 | XMS_ITS | Encounter Summary ---
:1940 [place] [address] Care Team Providers Name Role Phone Bobby Das MD Primary Care Provider Encounter Details Date Type Department Care Team Description 08/25/2015 Telephone Dermatology at [facility] Gloria Ferrell MD [address] [facility] [place] [phone] [facility]-DER[facility]Y [phone] [place], [place] [address] (Wo rk) Social History Tobacco [...] Office Visit Vascular Surgery Jing Ghosh, HIRAL [facility] ER VASCULAR SURGERY [place], [place] [address] (Wo rk) 09/02/2022 Clinical Support Dermatology Thai Lynn MD [facility] DR JENNY BILLY-DERMAT [place], [place] [address] (Wo rk) 09/02/2022 Procedure visit Dermatology Jace Lynn MD [facility] DR JENNY BILLY-DERMAT [place], [place] [address] (Wo rk) 09/05/2022 Appointment Cardiology Trinity Reid MD [facility] CARDIOLOGY [place], [place] [address] (Wo rk) 09/05/2022 Office Visit Cardiology Trinity Reid MD [facility] CARDIOLOGY [place], [place] [address] (Wo rk) documented as of this encounter Visit Diagnoses Not on filedocumented in this encounter Care Teams Sheriffs Officer Relationship Specialty Start Date End Date Bobby Das MD PCP - General 10/02/[address] [place] [address] [place] [phone] documented as of this encounter
--- OUTSIDE RECORDS SUMMARY | 2022-06-23 03:51 | XMS_ITS | Encounter Summary ---
:1940 Author Organization [facility] [place] [address] Care Team Providers Name Role Phone Bobby Das MD Primary Care Provider Reason for Visit Reason Comments Skin Check Encounter Details Date Type Department Care Team Description 03/29/2014 Office Visit Dermatology at Cy Knight, Kyle c ell carcinoma (Primary Dx); Nba CARCAMO Verruca vulgaris; [address] [place] (actinic keratosis) [facility] B DERMATOLOGY [place], [place] [phone] Social History Tobacco Use Types Packs/Day Years [...] sun over the years. He lives in [place], [place]. Physical examination reveals a pleasant, 73-year-old gentleman who has a pearly, 1-cm papule on the right lateral canthus, site A; and a pearly papule about 8 mm in diameter, site C, on the right rastafari at the scalp line. At the central [...] BCCAs, right lateral canthus and right lateral rastafari, sites A and C, respectively. a. After [...] Office Visit Vascular Surgery Jing Ghosh, HIRAL [facility] VASCULAR SURGERY [place], [place] [address] (Wo rk) 09/02/2022 Clinical Support Dermatology Thai Lynn MD [facility] DR JENNY BILLY-DERMAT [place], [place] [address] (Wo bob) 09/02/2022 Procedure visit Dermatology Jace Lynn MD [facility] DR JENNY BILLY-DERMAT [place], [place] [address] (Wo rk) 09/05/2022 Appointment Cardiology Trinity Reid MD [facility] CARDIOLOGY [place], [place] [address] (Wo rk) 09/05/2022 Office Visit Cardiology Trinity Reid MD [facility] CARDIOLOGY [place], [place] [address] (Wo rk) documented as of this encounter Visit Diagnoses Diagnosis Basal cell carcinoma - Primary Basal cell carcinoma of skin, site unspe cified Verruca vulgaris Viral warts, unspecified [place] (actinic keratosis) Actinic keratosis documented in this encounter Care Teams Financial Services Associate Relationship Specialty Start Date End Date Bobby Das MD PCP - General 10/02/[address] [place] [address] [place] [phone] documented as of this encounter
--- OUTSIDE RECORDS SUMMARY | 2022-06-23 03:51 | XMS_ITS | Encounter Summary ---
:1940 Author Organization [facility] [place] [address] Care Team Providers Name Role Phone Bobby Das MD Primary Care Provider Encounter Details Date Type Department Care Team Description 12/13/2016 Telephone Pain Management [place] [address] Social History Tobacco Use Types Packs/Day [...] Jing Ghosh, HIRAL [facility] DR VASCULAR SURGERY [place], [place] [address] (Wo rk) 09/02/2022 Clinical Support Dermatology Thai Lynn MD [facility] DR JENNY BILLY-DERMAT [place], [place] [address] (Wo rk) 09/02/2022 Procedure visit Dermatology Jace Lynn MD [facility] DR JENNY BILLY-DERMAT [place], [place] [address] (Wo rk) 09/05/2022 Appointment Cardiology Trinity Reid MD [facility] ER CARDIOLOGY [place], [place] [address] (Wo rk) 09/05/2022 Office Visit Cardiology Trinity Reid MD [facility] CARDIOLOGY [place], [place] [address] (Wo rk) documented as of this encounter Visit Diagnoses Not on filedocumented in this encounter Care Teams Oyster Worker Relationship Specialty Start Date End Date Bobby Das MD PCP - General 10/02/[address] [place] [address] [place] [phone] documented as of this encounter
--- OUTSIDE RECORDS SUMMARY | 2022-06-23 03:51 | XMS_ITS | Encounter Summary ---
:1940 Author Organization [facility] [place] [address] Care Team Providers Name Role Phone Bobby Das MD Primary Care Provider Encounter Details Date Type Department Care Team Description 07/26/2015 External Results Medical Records Provider, [facility] [place] [address] Social History Tobacco Use Types Packs/Day Years Used Date Current Some Day Smoker 1 50 Smokeless Tobacco: Never Used Sex Assigned at Date Recorded Not on file documented as of this encounter Plan of Treatment Upcoming Encounters Date Type Specialty Care Team Description 07/02/2022 Office Visit Vascular Surgery Jing Ghosh APRN [facility] VASCULAR SURGERY [place], [place] [address] (Wo rk) 09/02/2022 Clinical Support Dermatology Thai Lynn MD [facility] DR JENNY BILLY-DERMAT [place], [place] [address] (Wo rk) 09/02/2022 Procedure visit Dermatology Jace Lynn MD [facility] DR JENNY BILLY-DERMAT [place], [place] [address] (Wo rk) 09/05/2022 Appointment Cardiology Trinity Reid MD [facility] DR WARNER [place], [place] [address] (Wo rk) 09/05/2022 Office Visit Cardiology Trinity Reid MD [facility] ER CARDIOLOGY [place], [place] [address] (Wo rk) documented as of [...] filedocumented in this encounter Care Teams Solution Make Up Operator Relationship Specialty Start Date End Date Bobby Das MD PCP - General 10/02/[address] [place] [address] [place] [phone] documented as of this encounter
--- OUTSIDE RECORDS SUMMARY | 2022-06-23 03:51 | XMS_ITS | Encounter Summary ---
:1940 Author Organization [facility] Address [facility] [address] [place] [address] Care Team Providers Name Role Phone Bobby Das MD Primary Care Provider Reason for Visit Reason Comments Shortness of Breath Encounter Details Date Type Department Care Team Description 12/24/2011 Office Visit [facility] Hosp Torrey Giang SOB (shortness of [address] Mendoza MD breath) (Primary Dx) [facility] [phone] CARDIOLOGY DEPT. [place], [place] [address] Social History Tobacco Use Types [...] 07/02/2022 Office Visit Vascular Surgery Jing Ghosh, SECURITY COORDINATOR [facility] VASCULAR SURGERY [place], [place] [address] (Wo rk) 09/02/2022 Clinical Support Dermatology Thai Lynn MD [facility] DR JENNY BILLY-DERMAT [place], [place] [address] (Wo rk) 09/02/2022 Procedure visit Dermatology Jace Lynn MD [facility] DR JENNY BILLY-DERMAT [place], [place] [address] (Wo rk) 09/05/2022 Appointment Cardiology Trinity Reid MD [facility] CARDIOLOGY [place], [place] [address] (Wo rk) 09/05/2022 Office Visit Cardiology Trinity Reid MD [facility] CARDIOLOGY [place], [place] [address] (Wo rk) documented as of this encounter Visit Diagnoses Diagnosis SOB (shortness of breath) - Primary Shortness of breath documented in this encounter Care Teams Manager Paid Relationship Specialty Start Date End Date Bobby Das MD PCP - General 10/02/[address] [place] [address] [place] [address] documented as of this encounter
--- OUTSIDE RECORDS SUMMARY | 2022-06-23 03:51 | XMS_ITS | Encounter Summary ---
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 Chano Rebolledo MD [facility] [address] [place] [address] [place] [address] [place] [address] Phone: Fax: Referral ID Status Reason Start Date Expiration Date Visits V isits Requested Authorized [id number] Denied Consult, 12/18/2016 12/18/2017 1 0 Test & Treat Encounter Details Date Type Department Care Team Description 12/18/2016 Telephone Pain Management at Chano Freitas MD [facility] [place] [address] PAIN CLINIC [phone] [place], [place] [address] (Wo rk) Social History Tobacco [...] I will make a heme/oncology consultation with [facility] for the patient in the meantime. documented in this encounter Plan of Treatment Upcoming Encounters Date Type Specialty Care Team Description 07/02/2022 Office Visit Vascular Surgery Jing Ghosh, HIRAL [facility] VASCULAR SURGERY [place], [place] [address] (Wo bob) 09/02/2022 Clinical Support Dermatology Thai Lynn MD [facility] DR JENNY BILLY-DERMAT [place], [place] [address] (Rebekah rojas) 09/02/2022 Procedure visit Dermatology Jace Lynn MD [facility] DR JENNY BILLY-DERMAT [place], [place] [address] (Rebekah rk) 09/05/2022 Appointment Cardiology Trinity Reid MD [facility] DR WARNER [place], [place] [address] (Rebekah rojas) 09/05/2022 Office Visit Cardiology Trinity Reid MD [facility] CARDIOLOGY [place], [place] [address] (Wo rk) Scheduled Referrals Name Type Priority Associated Diagnoses Order S chedule Referral to Outpatient Referral Routine Neoplasm of Ordered: Hematology and uncertain behavior 017 Oncology of respiratory organ documented as of this encounter Visit Diagnoses Diagnosis 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
--- OUTSIDE RECORDS SUMMARY | 2022-06-23 03:51 | XMS_ITS | Encounter Summary ---
:1940 Author Organization [facility] [place] [address] Care Team Providers Name Role Phone Bobby Das MD Primary Care Provider Reason for Visit Reason Comments Suture / Staple Removal Encounter Details Date Type Department Care Team Description 08/31/2015 Clinical Support Dermatology at [place] Visit for suture Heat Nicol Estrella MD removal [address] [facility] [address] [facility] [phone] RD-DERMATOLOGY [place] [phone] Social History Tobacco Use Types Packs/Day Years Used Date Current Some Day Smoker 1 50 Smokeless Tobacco: Never Used Sex Assigned at Date Recorded Not on file documented as of this encounter Progress Notes Jeni Franco LPN - 08/31/2015 2:47 PM EDT HPI: Patient is a 74 y.o. male with history of basal cell carcinoma, right tenriism, s/p Mohs repairedby transposition flap repair who is presenting for suture removal. Denies complications. Exam: General: No acute distress Skin: Limited examination of right tenriism shows a well-healed flap. There is no erythema, dehiscence, ecchymosis, or drainage. Assessment and Plan 1. Basal cell carcinoma, right tenriism, s/p Mohs repaired by transposition flap repair [...] 07/02/2022 Office Visit Vascular Surgery Jing Ghosh, CAPTAIN CANNERY TENDER [facility] VASCULAR SURGERY [place], [place] [address] (Wo rk) 09/02/2022 Clinical Support Dermatology Thai Lynn MD [facility] DR JENNY BILLY-DERMAT [place], [place] [address] (Wo rk) 09/02/2022 Procedure visit Dermatology Jace Lynn MD [facility] DR JENNY BILLY-DERMAT [place], [place] [address] (Wo rk) 09/05/2022 Appointment Cardiology Trinity Reid MD [facility] CARDIOLOGY [place], [place] [address] (Wo rk) 09/05/2022 Office Visit Cardiology Trinity Reid MD [facility] CARDIOLOGY [place], [place] [address] (Wo rk) documented as of this encounter Visit Diagnoses Diagnosis Visit for suture removal Encounter for removal of sutures documented in this encounter Care Teams Product Support Rep Relationship Specialty Start Date End Date Bobby Das MD PCP - General 10/02/[address] [place] [address] [place] [phone] documented as of this encounter
--- OUTSIDE RECORDS SUMMARY | 2022-06-23 03:51 | XMS_ITS | Encounter Summary ---
:1940 Author Organization [facility] [address] Care Team Providers Name Role Phone Bobby Das MD Primary Care Provider Encounter Details Date Type Department Care Team Description 06/26/2018 Ancillary Procedure Radiology Library at Bobby Almaguer MD [facility] [address] [place] [phone] (Wo rk) Social History Tobacco Use Types Packs/Day Years Used Date Current Some Day Smoker 1 50 Smokeless Tobacco: Never Used Sex Assigned at Date Recorded Not on file documented as of this encounter Plan of Treatment Upcoming Encounters Date Type Specialty Care Team Description 07/02/2022 Office Visit Vascular Surgery Jing Ghosh APRN [facility] DR VASCULAR SURGERY [place], [place] [address] (Wo rk) 09/02/2022 Clinical Support Dermatology Thai Lynn MD [facility] ER DR JENNY BILLY-DERMAT [place], [place] [address] (Wo rk) 09/02/2022 Procedure visit Dermatology Jace Lynn MD [facility] DR JENNY BILLY-DERMAT [place], [place] [address] (Wo rk) 09/05/2022 Appointment Cardiology Trinity Reid MD [facility] ER [place], [place] [address] (Wo rk) 09/05/2022 Office Visit Cardiology Trinity Reid MD [facility] ER CARDIOLOGY [place], [place] [address] (Wo rk) documented as of [...] Organization Address City/State/ZIP Code Phon e Number [place], [place] documented in this encounter Visit Diagnoses Not on filedocumented in this encounter Care Teams Stock Worker Relationship Specialty Start Date End Date Bobby Das MD PCP - General 10/02/[address] [place] [address] [place] [phone] documented as of this encounter
--- OUTSIDE RECORDS SUMMARY | 2022-06-23 03:51 | XMS_ITS | Encounter Summary ---
:1940 Author Organization [facility] [place] [address] Care Team Providers Name Role Phone Bobby Das MD Primary Care Provider Encounter Details Date Type Department Care Team Description 12/16/2016 [facility] [place] [address] Social History Tobacco Use Types Packs/Day [...] Surgery Jing Ghosh, HIRAL [facility] ER VASCULAR SURGERY [place], [place] [address] (Wo rk) 09/02/2022 Clinical Support Dermatology Thai Lynn MD [facility] DR JENNY BILLY-DERMAT [place], [place] [address] (Wo rk) 09/02/2022 Procedure visit Dermatology Jace Lynn MD [facility] DR JENNY BILLY-DERMAT [place], [place] [address] (Wo rk) 09/05/2022 Appointment Cardiology Trinity Reid MD [facility] CARDIOLOGY [place], [place] [address] (Wo rk) 09/05/2022 Office Visit Cardiology Trinity Reid MD [facility] CARDIOLOGY [place], [place] [address] (Wo rk) documented as of this encounter Visit Diagnoses Not on filedocumented in this encounter Care Teams Wire Stripping Machine Operator Relationship Specialty Start Date End Date Bobby Das MD PCP - General 10/02/[address] [place] [address] [place] [phone] documented as of this encounter
--- OUTSIDE RECORDS SUMMARY | 2022-06-23 03:51 | XMS_ITS | Encounter Summary ---
:1940 Author Organization [facility] [place] [address] Care Team Providers Name Role Phone Bobby Das MD Primary Care Provider Reason for Visit Reason Onset Date Comments Pre Procedure Call 08/01/2015 Encounter Details Date Type Department Care Team Description 08/01/2015 Telephone Dermatology at [facility] Cassy Jacobson, Pre Procedure Call [address] [place] [address] Social History Tobacco Use Types Packs/Day [...] Office Visit Vascular Surgery Jing Ghosh, HIRAL [facility] ER VASCULAR SURGERY [place], [place] [address] (Wo rk) 09/02/2022 Clinical Support Dermatology Thai Lynn MD [facility] DR JENNY BROWN-DERMAT [place], [place] [address] (Rebekah rk) 09/02/2022 Procedure visit Dermatology Jace Lynn MD [facility] DR [address]-DERMAT OLOGY [place], [place] [address] (Wo rk) 09/05/2022 Appointment Cardiology Trinity Reid MD [facility] CARDIOLOGY [place], [place] [address] (Wo rk) 09/05/2022 Office Visit Cardiology Trinity Reid MD [facility] CARDIOLOGY [place], [place] [address] (Wo rk) documented as of this encounter Visit Diagnoses Not on filedocumented in this encounter Care Teams Latex Caster Relationship Specialty Start Date End Date Bobby Das MD PCP - General 10/02/[address] [place] [address] [place] [phone] documented as of this encounter
--- OUTSIDE RECORDS SUMMARY | 2022-06-23 03:51 | XMS_ITS | Encounter Summary ---
:1940 Author Organization [facility] [place] [address] Care Team Providers Name Role Phone Bobby Das MD Primary Care Provider Encounter Details Date Type Department Care Team Description 09/18/2018 Telephone Dermatology at [facility] Yolanda Fraser RN [address] [place] [address] Social History Tobacco Use Types Packs/Day [...] Who lives with patient (i.e. spouse, children, nursing home/[place])? Spouse Relevant travel history [...] 07/02/2022 Office Visit Vascular Surgery Jing Ghosh, AUTO BODY REPAIRER [employer] [facility] VASCULAR SURGERY [place], [place] [address] (Rebekah rojas) 09/02/2022 Clinical Support Dermatology Thai Lynn MD [facility] DR JENNY BROWN-DERMAT [place], [place] [address] (Rebekah rojas) 09/02/2022 Procedure visit Dermatology Jace Lynn MD [facility] DR JENNY BROWN-DERMAT [place], [place] [address] (Wo rk) 09/05/2022 Appointment Cardiology Trinity Reid MD [facility] CARDIOLOGY [place], [place] [address] (Wo rk) 09/05/2022 Office Visit Cardiology Trinity Reid MD [facility] CARDIOLOGY [place], [place] [address] (Wo rk) documented as of this encounter Visit Diagnoses Not on filedocumented in this encounter Care Teams Global Sales Manager Relationship Specialty Start Date End Date Bobby Das MD PCP - General 10/02/[address] [place] [address] [place] [phone] documented as of this encounter
--- OUTSIDE RECORDS SUMMARY | 2022-06-23 03:51 | XMS_ITS | Encounter Summary ---
:1940 Author Organization [facility] [place] [address] Care Team Providers Name Role Phone Bobby Das MD Primary Care Provider Reason for Visit Reason Comments Basal Cell Carcinoma Consultation (Routine) - Closed Specialty Diagnoses / Procedures Referred By Contact Refer red To Contact Dermatology Diagnoses REQUESTING MOHS PROCEDURE RIGHT EYEBROW FOR LESION REMOVED BUT ADDITIONAL TISSUE REMAINS Bobby Das MD Vidal, Nahid Y, MD [address] [place] [address] [place] [address] [place] [address] Fax: Referral ID Status Reason Start Date Expiration Date Visits V isits Requested Authorized [id number] Closed Consult, 06/24/2018 06/24/2019 1 1 [facility] Encounter Details Date Type Department Care Team Description 09/23/2018 Procedure visit Dermatology at Al[facility]o Romano, Basal cell carcinoma Nicol CARCAMO (BCC) of eyebrow [address] [facility] [address] [place] [address] [phone] Social History Tobacco Use Types Packs/Day Years [...] Llanos MD. Your wound(s) was repaired by rsmw-lo-niln stitches called a primary repair. You do [...] until your sutures are removed. 5. Some planning supervisor may need to be delayed or delegated [...] as often as is recommended by your outpatient scheduler, for new skin cancers. This is once [...] it. If after hours, please call the glost kiln operator or [phone] and ask for the outpatient scheduler on-call. If you have any non-urgent questions or concerns, please feel free to call my office or contact me through our patient portal, [employer], at [email or web address] How to contact us during business hours Dermatology at [facility] Road: Mohs scheduling or Mohs follow-up appointments: [phone] documented in this encounter Progress Notes Alvaro [...] Who lives with patient (i.e. spouse, children, group home/retirement)? Spouse Relevant travel history or future plans: [...] follow up with his or her referring outpatient scheduler or other skin provider. Summary of Procedure(s): [...] Date: 09/23/2018 Staff Surgeon: Alvaro Llanos MD Nursing/Benefits Consultant(s): Assistants: Cassy Jacobson LPN, Jolene Pretty RN, Yolanda Fraser LPN, Savanah Licea CMA Foundation Digger (s): [place]ina Cisneros Amanda Isenor Pre-operative diagnosis: [...] The site was confirmed with the patient/authorized accounts payable representative/referring physician and/or a photograph form time [...] Right eyebrow Indication: repair of wound for sabianism of function/anatomy Final Defect size: 1.5 x [...] 07/02/2022 Office Visit Vascular Surgery Jing Ghosh, MAINTENANCE MECHANIC TECHNICIAN [facility] VASCULAR SURGERY [place] [address] (Wo rk) 09/02/2022 Clinical Support Dermatology Thai Lynn MD [facility] DR JENNY BILLY-DERMAT [place], [place] [address] (Wo rk) 09/02/2022 Procedure visit Dermatology Jace Lynn MD [facility] DR JENNY BILLY-DERMAT [place], [place] [address] (Wo rk) 09/05/2022 Appointment Cardiology Trinity Reid MD [facility] CARDIOLOGY [place], [place] [address] (Wo rk) 09/05/2022 Office Visit Cardiology Trinity Reid MD [facility] CARDIOLOGY [place], [place] [address] (Wo rk) documented as of this encounter Visit Diagnoses Diagnosis Basal cell carcinoma (BCC) of eyebrow documented in this encounter Care Teams Supervisor Plastics Relationship Specialty Start Date End Date Bobby Das MD PCP - General 10/02/[address] [place] [address] [place] [address] documented as of this encounter
--- OUTSIDE RECORDS SUMMARY | 2022-06-23 03:51 | XMS_ITS | Encounter Summary ---
:1940 [place] [address] Care Team Providers Name Role Phone Bobby Das MD Primary Care Provider Reason for Visit Reason Onset Date Comments Other 07/19/2011 Encounter Details Date Type Department Care Team Description 07/19/2011 Telephone Cardiology at [facility] Chet Nicole MD [facility] [place] [address] CARDIOLOGY DEPT. [phone] [place], [place] [address] (Wo rk) Social History Tobacco Use Types Packs/Day Years Used Date Current Every Day Smoker 1 50 Smokeless Tobacco: Never Used Sex Assigned at Date Recorded Not on file documented as of this encounter Miscellaneous Notes Telephone Encounter - Laney Chahal - 07/19/2011 3:34 PM EDT Dominique from the [facility] called stating that Mr. Zamora wansts nothing to do with the dobutamine for his stress test. He said he would be willing to try the treadmill. Dominique said you need to go in andchange the order for his stress test. documented in this encounter Plan of Treatment Upcoming Encounters Date Type Specialty Care Team Description 07/02/2022 Office Visit Vascular Surgery Jing Ghosh, EVENT PROMOTIONS COORDINATOR [facility] [place]ASCULAR [place] [address] (Wo rk) 09/02/2022 Clinical Support Dermatology Thai Lynn MD [facility] DR JENNY BILLY-DERMAT [place], [place] [address] (Wo rk) 09/02/2022 Procedure visit Dermatology Jace Lynn MD [facility] DR JENNY BILLY-DERMAT [facility] [place], [place] [address] (Wo rk) 09/05/2022 Appointment Cardiology Trinity Reid MD [facility] CARDIOLOGY [place], [place] [address] (Wo rk) 09/05/2022 Office Visit Cardiology Trinity Reid MD [facility] CARDIOLOGY [place], [place] [address] (Wo rk) documented as of this encounter Visit Diagnoses Not on filedocumented in this encounter Care Teams Data Center Consultant Relationship Specialty Start Date End Date Bobby Das MD PCP - General 10/02/[address] [place] [address] [place] [phone] documented as of this encounter
--- OUTSIDE RECORDS SUMMARY | 2022-06-23 03:51 | XMS_ITS | Encounter Summary ---
:1940 Author Organization [facility] [place] [address] Care Team Providers Name Role Phone Bobby Das MD Primary Care Provider Reason for Visit Reason Comments Basal Cell Carcinoma Encounter Details Date Type Department Care Team Description 08/08/2015 [facility] (basal cell Road MD carcinoma of skin) [address] [place] [address] [facility] [place], [place] [address] Social History Tobacco Use Types [...] Our facility does not offer a guest ManyWho-Epi[employer] network at this time. We also recommend [...] specified we require that you have a class a regional drivers, as surgery can be stressful and tiring. If you are being transported from a alf or other similar facility, we request that someone stay with you during this appointment. We are located in the [facility] [place], [place]. Please refer to the [facility] website for detailed driving directions ([email or web address]). When you arrive, please park in the upper parking lot. When you enter the building, go to the third floor, the reception centre manager area is located on the left (follow [...] If this fails, contact our office at [phone] (after 5PM please call [phone] and ask for the Tennis Director organizational research consultant). Avoid bending over, heavy lifting (no greater [...] are taking. Our office phone number is [phone]. documented in this encounter Progress Notes Leo Solo MD - 08/08/2015 1:50 PM EDT MOHS SURGICAL CONSULT Chief Complaint: Basal cell carcinoma History of Present Illness: Referring Physician: Dr. Zheng, [facility] (07/03/15) Tumor type: BCC Location of Skin Cancer: Right anabaptism Duration of Presence: 1 year Previous Treatment: [...] acute distress. Skin: Limited examination of right anabaptism reveals a 5 mm erythematous papule. Assessment and Plan 1. BCC, right anabaptism Reviewed treament options including wide local excision, [...] 07/02/2022 Office Visit Vascular Surgery Jing Ghosh, STRIPPER SOFT PLASTIC [facility] VASCULAR SURGERY [place], [place] [address] (Wo rk) 09/02/2022 Clinical Support Dermatology Thai Lynn MD [facility] DR JENNY BILLY-DERMAT [place], [place] [address] (Wo rk) 09/02/2022 Procedure visit Dermatology Jace Lynn MD [facility] DR JENNY BILLY-DERMAT [place], [place] [address] (Wo rk) 09/05/2022 Appointment Cardiology Trinity Reid MD [facility] CARDIOLOGY [place], [place] [address] (Wo rk) 09/05/2022 Office Visit Cardiology Trinity Reid MD [facility] CARDIOLOGY [place], [place] [address] (Wo rk) documented as of this encounter Visit Diagnoses Diagnosis BCC (basal cell carcinoma of skin) Basal cell carcinoma of skin, site unspe cified documented in this encounter Care Teams Forest Patrolman Relationship Specialty Start Date End Date Bobby Das MD PCP - General 10/02/[address] [place] [address] [place] [address] documented as of this encounter
--- OUTSIDE RECORDS SUMMARY | 2022-06-23 03:51 | XMS_ITS | Encounter Summary ---
:1940 Author Organization [facility] Address [facility] [place] [address] Care Team Providers Name Role Phone Bobby Das MD Primary Care Provider Reason for Visit Reason Comments Shortness of Breath Encounter Details Date Type Department Care Team Description 06/28/2011 Office Visit Cardiology at [facility] Chet Nicole SOB (shortness of breath) (P rimary Dx); [facility] GIB (gastrointestinal bleeding); Drive [facility] MVP (mitral valve prolapse) [place] [address] CARDIOLOGY DEPT. [phone] [place], [place] [address] Social History Tobacco Use Types [...] Giordano MD - 06/28/2011 4:15 PM EDT [facility] Cholesterol and Triglycerides Tests: About These Tests [...] 60 mg/dl is considered ideal. ?? Total ouwrpggvqms-rm-YBK ratio: A ratio of 5:1 or lower is recommended. ?? LDL cholesterol: Between 100-129 mg/dL is recommended. Lower than 100 mg/dL is considered ideal. ?? VLDL cholesterol: 30 mg/dL or less is recommended. ?? Triglycerides: Lower than 150 mg/dL is recommended. Where can you learn more? Visit our health information library at [email or web address]. You can also view health information on [employer], your personal patient account. Log in or sign up today. Enter V788 in the search box to learn more about Cholesterol and Triglycerides Tests: About These Tests. ?? [id number] [employer]. Care instructions adapted under license by [facility]. This care instruction is for use with your licensed healthcare professional. If you have questionsabout a medical condition or this instruction, always ask your healthcare professional. [employer] disclaims any warranty or liability for your [...] valve prolapse) s/p repair Surgery done at [facility] in 2000 ??? Hypertriglyceridemia ??? Adhesive capsulitis of L shoulder ??? Alcohol use Medications: Crumrod-3 Fatty Acids-Vitamin E (FISH OIL) 1,000 mg [...] APRN [facility] VASCULAR SURGERY [place], [place] [address] (Wo rk) 09/02/2022 Clinical Support Dermatology Thai Lynn MD [facility] DR JENNY BILLY-DERMAT [place], [place] [address] (Wo rk) 09/02/2022 Procedure visit Dermatology Jace Lynn MD [facility] DR JENNY BILLY-DERMAT [place], [place] [address] (Wo rk) 09/05/2022 Appointment Cardiology Trinity Redi MD [facility] CARDIOLOGY [place], [place] [address] (Wo rk) 09/05/2022 Office Visit Cardiology Trinity Reid MD [facility] CARDIOLOGY [place], [place] [address] (Wo rk) documented as of this encounter Procedures Procedure Name Priority Date/Time Associated Diagnosis Comme nts EKG 12-LEAD Routine 06/28/2011 2:59 PM SOB (shortness of Resu lts for this EDT breath) procedure are i n the results section . documented in this encounter Results EKG 12 Lead (06/28/2011 2:59 PM EDT) [facility] Method Time Signature Ventricular rate 70 BPM MUSE SYSTEM Atrial Rate 70 BPM MUSE SYSTEM P-R Interval 182 ms MUSE SYSTEM QRS Duration 106 ms MUSE SYSTEM Q-T Interval 406 ms MUSE SYSTEM QTC Calculated 438 ms MUSE SYSTEM (Bezet) Calculated P [place] 60 degrees MUSE SYSTEM Calculated R [place] -51 degrees MUSE SYSTEM Calculated T [place] 32 degrees MUSE SYSTEM INTERPRETATION Normal sinus [...] disorders documented in this encounter Care Teams Direct Service Provider Relationship Specialty Start Date End Date Bobby Das MD PCP - General 10/02/[address] [place] [address] [place] [address] documented as of this encounter
--- OUTSIDE RECORDS SUMMARY | 2022-06-23 03:51 | XMS_ITS | Encounter Summary ---
:1940 Author Organization [facility] [place] [address] Care Team Providers Name Role Phone Bobby Das MD Primary Care Provider Reason for Visit Reason Comments Follow-up Encounter Details Date Type Department Care Team Description 05/31/2014 [facility] of basal cell Nba CARCAMO carcinoma (Primary [address] Dx) [facility] B DERMATOLOGY [place], [place] [address] [phone] Social History Tobacco Use Types Packs/Day Years Used Date Current Some Day Smoker 1 50 Smokeless Tobacco: Never Used Sex Assigned at Date Recorded Not on file documented as of this encounter Patient Instructions Patient InstructionsSupriya Louis LPN - 05/31/2014 1:34 PM EDT Images from the original note were not included. [facility] Actinic Keratosis: After Your Visit Your Care [...] more? Visit our health information library at [email or web address] You can also view health information on [employer], your personal patient account. Log in or sign up today. Enter L364 in the search box to learn more about Actinic Keratosis: After Your Visit. ?? [id number] [employer]. Care instructions adapted under license by [facility]. This care instruction is for use with your licensed healthcare professional. If you have questionsabout a medical condition or this instruction, always ask your healthcare professional. [employer] disclaims any warranty or liability for your use of this information. Content Version: 9.9.864641; Last Revised: December 22, 2012 documented in this encounter Progress Notes Hammer, Cy J, MD - 05/31/2014 2:08 PM EDT Problem: Follow up for repeat skin checkup. Shadi follows up after last being seen in March. At that time, I removed using shave C and D a BCCA from the right lateral canthus and a BCCA from the right lateral gnosticism. I also treated a verruca vulgaris on [...] Office Visit Vascular Surgery Jing Ghosh APRN [facility] VASCULAR SURGERY [place], [place] [address] (Wo bob) 09/02/2022 Clinical Support Dermatology Thai Lynn MD [facility] DR JENNY BILLY-DERMAT [place], [place] [address] (Wo bob) 09/02/2022 Procedure visit Dermatology Jace Lynn MD [facility] DR JENNY BILLY-DERMAT [place], [place] [address] (Rebekah rojas) 09/05/2022 Appointment Cardiology Trinity Reid MD [facility] CARDIOLOGY [place], [place] [address] (Wo rk) 09/05/2022 Office Visit Cardiology Trinity Reid MD [facility] CARDIOLOGY [place], [place] [address] (Wo rk) documented as of this encounter Visit Diagnoses Diagnosis History of basal cell carcinoma - Primar y Personal history of other malignant neop lasm of skin documented in this encounter Care Teams Chip Loft Worker Relationship Specialty Start Date End Date Bobby Das MD PCP - General 10/02/[address] [place] [address] [place] [address] documented as of this encounter
--- OUTSIDE RECORDS SUMMARY | 2022-06-23 03:51 | XMS_ITS | Encounter Summary ---
:1940 Author Organization [facility] [place] [address] Care Team Providers Name Role Phone Bobby Das MD Primary Care Provider Encounter Details Date Type Department Care Team Description 08/06/2020 Ancillary Procedure Radiology at [facility] LiseAmy madrigal [address] [place] [address] [address] [phone] NEUROSURGERY-N [place], [place] [address] Social History Tobacco Use Types [...] 07/02/2022 Office Visit Vascular Surgery Jing Ghosh, BUILDINGS PAINTER [facility] VASCULAR SURGERY [place], [place] [address] (Wo rk) 09/02/2022 Clinical Support Dermatology Thai Lynn MD [facility] DR JENNY BILLY-DERMAT [place], [place] [address] (Wo rk) 09/02/2022 Procedure visit Dermatology Jace Lynn MD [facility] DR JENNY BILLY-DERMAT [place], [place] [address] (Wo rk) 09/05/2022 Appointment Cardiology Trinity Reid MD [facility] [place]ARDIOLOGY [place], [place] [address] (Wo rk) 09/05/2022 Office Visit Cardiology Trinity Reid MD [facility] CARDIOLOGY [place], [place] [address] (Wo rk) documented as of [...] Organization Address City/State/ZIP Code Phon e Number [place], [place] documented in this encounter Visit Diagnoses Not on filedocumented in this encounter Care Teams Bobbin Presser Relationship Specialty Start Date End Date Bobby Das MD PCP - General 10/02/[address] [place] [address] [place] [phone] documented as of this encounter
--- OUTSIDE RECORDS SUMMARY | 2022-06-23 03:51 | XMS_ITS | Encounter Summary ---
:1940 Author Organization [facility] [place] [address] Care Team Providers Name Role Phone Bobby Das MD Primary Care Provider Encounter Details Date Type Department Care Team Description 08/06/2020 Ancillary Procedure Radiology at [facility] LiseAmy madrigal [address] [place] [address] 10 [address] [phone] NEUROSURGERY-N [place], [place] [address] Social History Tobacco Use Types [...] 07/02/2022 Office Visit Vascular Surgery Jing Ghosh, FORMULA TECHNICIAN [facility] ER VASCULAR SURGERY [place], [place] [address] (Wo rk) 09/02/2022 Clinical Support Dermatology Thai Lynn MD [facility] ER DR JENNY BILLY-DERMAT [place], [place] [address] (Wo rk) 09/02/2022 Procedure visit Dermatology Jace Lynn MD [facility] DR JENNY BILLY-DERMAT [place], [place] [address] (Wo rk) 09/05/2022 Appointment Cardiology Trinity Reid MD [facility] [place]Y [place], [place] [address] (Wo rk) 09/05/2022 Office Visit Cardiology Trinity Reid MD [facility] CARDIOLOGY [place], [place] [address] (Wo rk) documented as of this encounter Procedures Procedure Name Priority Date/Time Associated Diagnosis Comme nts FILM LIBRARY Routine 08/06/2020 12:00 AM Results for this STORAGE ONLY CT EDT procedure ar e in SPINE the results section. documented in this encounter Results Film Library- Storage Only CT Spine (08/06/2020 12:00 AM EDT) Specimen (Source) Anatomical Location Collection Method / Collectio n Time Received Time / Laterality Volume Narrative JOSE ALEJANDRO MCKINNON - 09/13/2020 10:40 AM EST This exam is auto-finalizing. It's purpo se is for storage only. Amy Grimaldo MD IMPhilippe FILM LIBRARY ORDERABLES Performing Organization Address City/State/ZIP Code Phon e Number [place], [place] documented in this encounter Visit Diagnoses Not on filedocumented in this encounter Care Teams Oncology Navigator Relationship Specialty Start Date End Date Bobby Das MD PCP - General 10/02/[address] [place] [address] [place] [phone] documented as of this encounter
--- OUTSIDE RECORDS SUMMARY | 2022-06-23 03:51 | XMS_ITS | Encounter Summary ---
:1940 [place] [address] Care Team Providers Name Role Phone Bobby Das MD Primary Care Provider Reason for Visit Reason Comments Wound Check Encounter Details Date Type Department Care Team Description 10/25/2015 Clinical Support Dermatology at [place] Gonzalez MD Follow up [facility] DR [address] [facility] [place] [address] [place] [address] [phone] (Wo rk) Social History Tobacco Use Types Packs/Day Years Used Date Current Some Day Smoker 1 50 Smokeless Tobacco: Never Used Sex Assigned at Date Recorded Not on file documented as of this encounter Progress Notes Leo Solo MD - 10/25/2015 1:01 PM EST CC: Wound check HPI: Patient is a 75 y.o. male with history of basal cell carcinoma, right adventist, s/p Mohs, repaired by transposition flap on who presents for wound check. Denies complications. States when he blinks he can feel the scar tissue. ROS: Otherwise well. No other skin complaints. Exam: General: No acute distress Skin: Limited examination of right adventist shows a well-healed flap with hypertrophy at the edge. Assessment and Plan 1. Basal cell carcinoma, right adventist, s/p Mohs, repaired by transposition flap Kenalog [...] of the documentation in this encounter. Leo Sloo MD documented in this encounter Plan of Treatment Upcoming Encounters Date Type Specialty Care Team Description 07/02/2022 Office Visit Vascular Surgery Jing Ghosh, PHYSICAL EDUCATION PROFESSOR [facility] VASCULAR SURGERY [place], [place] [address] (Wo rk) 09/02/2022 Clinical Support Dermatology Thai Lynn MD [facility] DR JENNY BILLY-DERMAT [place], [place] [address] (Wo rk) 09/02/2022 Procedure visit Dermatology Jace Lynn MD [facility] DR JENNY BILLY-DERMAT [place], [place] [address] (Wo rk) 09/05/2022 Appointment Cardiology Trinity Reid MD [facility] CARDIOLOGY [place], [place] [address] (Wo rk) 09/05/2022 Office Visit Cardiology Trinity Reid MD [facility] CARDIOLOGY [place], [place] [address] (Wo rk) documented as of this encounter Visit Diagnoses Diagnosis Follow up documented in this encounter Care Teams Household Refrigerator Mechanic Relationship Specialty Start Date End Date Bobby Das MD PCP - General 10/02/[address] [place] [address] [place] [phone] documented as of this encounter
--- OUTSIDE RECORDS SUMMARY | 2022-06-23 03:51 | XMS_ITS | Encounter Summary ---
:1940 Author Organization [facility] [place] [address] Care Team Providers Name Role Phone Bobby Das MD Primary Care Provider Encounter Details Date Type Department Care Team Description 09/06/2020 Ancillary Procedure Radiology at [facility] Amy Grimaldo [address] [place] [address] 10 [address] [phone] NEUROSURGERY-N [place], [place] [address] Social History Tobacco Use Types [...] 07/02/2022 Office Visit Vascular Surgery Jing Ghosh, MOTOR ANALYST [facility] ER VASCULAR SURGERY [place], [place] [address] (Wo rk) 09/02/2022 Clinical Support Dermatology Thai Lynn MD [facility] ER DR JENNY BILLY-DERMAT [place], [place] [address] (Wo rk) 09/02/2022 Procedure visit Dermatology Jace Lynn MD [facility] DR JENNY BILLY-DERMAT [place], [place] [address] (Wo rk) 09/05/2022 Appointment Cardiology Trinity Reid MD [facility] [place]OLOGY [place], [place] [address] (Wo rk) 09/05/2022 Office Visit Cardiology Trinity Reid MD [facility] ER CARDIOLOGY [place], [place] [address] (Wo rk) documented as of [...] Address City/State/ZIP Code Phon e Number [place], [place] documented in this encounter Visit Diagnoses Not on filedocumented in this encounter Care Teams Esthetician/Skin Therapist Relationship Specialty Start Date End Date Bobby Das MD PCP - General 10/02/[address] [place] [address] [place] [phone] documented as of this encounter
--- OUTSIDE RECORDS SUMMARY | 2022-06-23 03:51 | XMS_ITS | Encounter Summary ---
:1940 [place] [address] Care Team Providers Name Role Phone Bobby Das MD Primary Care Provider Encounter Details Date Type Department Care Team Description 10/13/2020 Notes Only Radiology at [facility] Alphonso Esquivel [facility] [place] [address] DIAGNOSTIC RADIOLOGY [phone] [place] [id number] (Wo rk) Social History Tobacco Use Types [...] APRN [facility] VASCULAR SURGERY [place], [place] [address] (Wo rk) 09/02/2022 Clinical Support Dermatology Thai Lynn MD [facility] DR JENNY BILLY-DERMAT [place], [place] [address] (Wo rk) 09/02/2022 Procedure visit Dermatology Jace Lynn MD [facility] DR JENNY BILLY-DERMAT [facility] [place], [place] [address] (Wo rk) 09/05/2022 Appointment Cardiology Trinity Reid MD [facility] CARDIOLOGY [place], [place] [address] (Wo rk) 09/05/2022 Office Visit Cardiology Trinity Reid MD [facility] CARDIOLOGY [place], [place] [address] (Wo rk) documented as of this encounter Visit Diagnoses Not on filedocumented in this encounter Care Teams Break Off Worker Relationship Specialty Start Date End Date Bobby Das MD PCP - General 10/02/[address] [place] [address] [place] [phone] documented as of this encounter
--- OUTSIDE RECORDS SUMMARY | 2022-06-23 03:51 | XMS_ITS | Encounter Summary ---
:1940 [place] [address] Care Team Providers Name Role Phone Bobby Das MD Primary Care Provider Encounter Details Date Type Department Care Team Description 07/13/2019 Orders Only Radiology Alan Brink Gastrointestinal [facility] MD Rosa hemorrhage, unspecified [facility] DR hemorrhage type (Primary [id number] RADIOLOGY DEPT Dx) [phone] [place], [place] [address] Social History Tobacco Use Types [...] file Gets together: Not on file Attends hindu service: Not on file Active member of [...] 07/02/2022 Office Visit Vascular Surgery Jing Ghosh, NECK FITTER [facility] VASCULAR SURGERY [place], [place] [address] (Wo bob) 09/02/2022 Clinical Support Dermatology Thai Lynn MD [facility] DR JENNY BILLY-DERMAT [place], [place] [address] (Wo bob) 09/02/2022 Procedure visit Dermatology Jace Lynn MD [facility] DR JENNY BILLY-DERMAT [place], [place] [address] (Wo rk) 09/05/2022 Appointment Cardiology Trinity Reid MD [facility] [place]ARDIOLOGY [place], [place] [address] (Wo rk) 09/05/2022 Office Visit Cardiology Trinity Reid MD [facility] CARDIOLOGY [place], [place] [address] (Wo rk) documented as of this encounter Results Prothrombin Time (07/20/2019 8:18 AM EDT) P athologist Signature PT 11.3 9.4 - 12.5 [facility] LABORATORY INR 1.0 [facility] LABORATORY Comment: An INR <2.0 indicates [...] Organization Address City/State/[place] [address] (ABNORMAL) Hemogram (07/20/2019 8:18 AM EDT) Analysis Performed At Patho logist Time Signature WBC 6.0 4.0 - 9.5 [facility] x10(3)/[facility] LABORATORY RBC 4.50 (L) 4.58 - [facility] 5.54 [facility] x10(6)/[facility] LABORATORY Hemoglobin 14.8 13.7 - [facility] 16.5 gm/dL [facility] LABORATORY Hematocrit 43.9 40.5 - [place] [place] 48.5 % [facility] LABORATORY MCV 97.6 (H) 82.9 - [place] 93.1 [facility] LABORATORY MCH 32.9 (H) 27.5 - [place] 32.1 pg [facility] LABORATORY MCHC 33.7 32.0 - [place] 35.7 gm/dL [facility] LABORATORY Platelets 164 145 - 357 [place] x10(3)/[facility] LABORATORY RDWSD 49.3 (H) 36.0 - [place] 45.0 [facility] LABORATORY RDWCV 13.6 11.4 - [place] 13.8 % [facility] LABORATORY MPV 10.0 7.6 - 12.9 [facility] LABORATORY nRBC % Auto 0.0 % [facility] LABORATORY nRBC Abs Auto 0.000 0.000 - [place] 0.000 [facility] x10(3)/[facility] LABORATORY Specimen Anatomical Collection Method Collection Time Receive d Time (Source) Location / / Volume Laterality Blood specimen 07/20/2019 8:18 AM 019 8:21 (specimen) EDT AM EDT Resulting Agency Comment Spec In Lab Bobby Marshall MD HEMATOLOGY ORDERABLES Performing Organization Address City/State/ZIP Code Phon e Number [place] [phone] HOSPITAL LAB[address]ATORY [address] documented in this encounter Visit Diagnoses Diagnosis Gastrointestinal hemorrhage, unspecified gastrointestinal hemorrhage type - Primary documented in this encounter Care Teams Order Planner Relationship Specialty Start Date End Date Bobby Das MD PCP - General 10/02/[address] [place] [address] [place] [address] documented as of this encounter
--- OUTSIDE RECORDS SUMMARY | 2022-06-23 03:51 | XMS_ITS | Encounter Summary ---
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, sequela Closed compression fracture of L1 lumbar vertebra with delayed healing, subsequent encounter Malignant neoplasm of prostate Zbingiew Thompson PA [facility] Interventionl Rad Procedures IR Vertebroplasty Lumbar Multiple Levels IR Vertebral Augmentation Lumbar Single Level [facility] [place] [address] [place] [address] Fax: Referral ID Status Reason Start Date Expiration Date Visits V isits Requested Authorized [id number] Closed Specialty 07/13/2019 07/12/2020 1 1 Service Requested iagnostic Test (Routine) - Closed Specialty Diagnoses / Procedures Referred By Contact Refer red To Contact Radiology Diagnoses Closed compression fracture of L1 lumbar vertebra with delayed healing, subsequent encounter Malignant neoplasm of prostate Zbigniew Thompson PA [facility] Interventionl Rad Procedures [place] [address] [place] [address] Fax: Referral ID Status Reason Start Date Expiration Date Visits V isits Requested Authorized [id number] Closed Specialty 07/13/2019 07/12/2020 1 1 Service Requested Reason for Visit Diagnostic Test (Routine) - Closed Specialty Diagnoses / Procedures Referred By Contact Refer red To Contact Radiology Diagnoses 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, sequela Closed compression fracture of L1 lumbar vertebra with delayed healing, subsequent encounter Malignant neoplasm of prostate Zbigniew Thompson, PA [facility] Interventionl Rad Procedures IR Vertebroplasty Lumbar Multiple Levels IR Vertebral Augmentation Lumbar Single Level [facility] [place] [facility] [place] [address] [place] [address] Fax: Referral ID Status Reason Start Date Expiration Date Visits V isits Requested Authorized [id number] Closed Specialty 07/13/2019 07/12/2020 1 1 Service Requested Encounter Details Date Type Department Care Team Description 07/20/2019 Hospital Encounter Radiology at [facility] Elmer Loya, Closed compression fracture of L1 lumbar vertebra with delayed healing, subsequent encounter; [facility] Malignant neoplasm of prostate; Drive [facility] Age-related osteoporosis wit h current pathological fracture of vertebra, sequela [place], [place] CENTER [address] [facility] [phone] [place] [address] Social History Tobacco Use Types Packs/Day Years [...] Martínez RN - 07/20/2019 10:06 AM EDT [facility] Discharge Instructions for Vertebroplasty Your vertebroplasty was [...] is during regular office hours, please call [phone]. If it is after regular office hours, oron weekends or holidays, please call [phone] and ask to speak to the Presentation Specialist on callfor Interventional Radiology. XXX You have [...] of : 1940 AGE: 78 y.o. Address: [address] [place] [address] [place] [phone] (home) Mobile: No relevant phone numbers on file. Referring Provider: Zbigniew Thompson REASON FOR VISIT: Order Questions Answers Where will study be performed? [facility] Radiology [120] Specify location Lumbar Reason for [...] 07/02/2022 Office Visit Vascular Surgery Jing Ghosh, LEASING DIRECTOR [facility] VASCULAR SURGERY [place], [place] [address] (Wo rk) 09/02/2022 Clinical Support Dermatology Thai Lynn MD [facility] DR JENNY BILLY-DERMAT [place], [place] [address] (Wo rk) 09/02/2022 Procedure visit Dermatology Jace Lynn MD [facility] DR JENNY BILLY-DERMAT [place], [place] [address] (Wo rk) 09/05/2022 Appointment Cardiology Trinity Reid MD [facility] CARDIOLOGY [place], [place] [address] (Wo rk) 09/05/2022 Office Visit Cardiology Trinity eRid MD [facility] CARDIOLOGY [place], [place] [address] (Wo rk) documented as of [...] made and a 13g a introducer needle (GELI) was advanced through the right pedicle and [...] made an d a 13ga introducer needle (GELI) was advanced through the left pedicle and [...] made and a 13g a introducer needle (GELI) was advanced through the right pedicle and [...] made an d a 13ga introducer needle (GELI) was advanced through the left pedicle and [...] made and a 13g a introducer needle (GELI) was advanced through the right pedicle and [...] made an d a 13ga introducer needle (GELI) was advanced through the left pedicle and [...] made and a 13g a introducer needle (GELI) was advanced through the right pedicle and [...] made an d a 13ga introducer needle (GELI) was advanced through the left pedicle and [...] Component Value Ref Test Analysis Performed At [facility] Range Method Time Signature Surgical [id number] ? Location: [address] [place] [address] Report The signing pathologist has (i) examined [...] Jl Reynolds Verified: ??07/22/2019 ?Pathologist Performed at: ??-[facility] Dept. of Pathology, [place], [place] DISCUSSION Deeper levels into the biopsy [...] Organization Address City/State/[place] [address] Specimen to Pathology (07/20/2019 8:41 AM EDT) Specimen Anatomical Collection Method Collection Time Receive d Time (Source) Location / / Volume Laterality AP Specimen 07/20/2019 8:41 AM 9 8:41 EDT AM EDT Narrative [facility] LABOR[facility] - 07/20/2019 8:41 AM EDT Specimen requisition ordered. ??Separate Pathology report to follow Elmer Loya MD PATHOLOGY/CYTOLOGY ORDERABLE S Performing Organization Address City/[facility]/[place] [address] documented in this encounter [...] mg documented in this encounter Care Teams Car Electronics Installer Relationship Specialty Start Date End Date Bobby Das MD PCP - General 10/02/[address] [place] [address] [place] [phone] documented as of this encounter
--- OUTSIDE RECORDS SUMMARY | 2022-06-23 03:51 | XMS_ITS | Encounter Summary ---
:1940 [place] [address] Care Team Providers Name Role Phone Bobby Das MD Primary Care Provider Encounter Details Date Type Department Care Team Description 07/20/2019 Laboratory Lab 3L Ilda Gastrointestina l Appointment [facility] hemorrhag e, unspecified Hospital gastrointestinal [facility] [place] [phone] Social History Tobacco Use Types Packs/Day Years [...] Ghosh APRN [facility] VASCULAR SURGERY [place], [place] [address] (Wo rk) 09/02/2022 Clinical Support Dermatology Thai Lynn MD [facility] DR JENNY BILLY-DERMAT [place], [place] [address] (Wo rk) 09/02/2022 Procedure visit Dermatology Jace Lynn MD [facility] DR JENNY BILLY-DERMAT [place], [place] [address] (Rebekah rojas) 09/05/2022 Appointment Cardiology Trinity Reid MD [facility] CARDIOLOGY [place], [place] 0[address] (Wo rk) 09/05/2022 Office Visit Cardiology Trinity Reid MD [facility] ER CARDIOLOGY [place], [place] [address] (Wo rk) documented as of [...] Time Signature WBC 6.0 4.0 - 9.5 [facility] x10(3)/[facility] LABORATORY RBC 4.50 (L) 4.58 - [place] 5.54 [facility] x10(6)/[facility] LABORATORY Hemoglobin 14.8 13.7 - [facility] 16.5 gm/dL [facility] LABORATORY Hematocrit 43.9 40.5 - [facility] 48.5 % [facility] LABORATORY MCV 97.6 (H) 82.9 - [place] [place] 93.1 [facility] LABORATORY MCH 32.9 (H) 27.5 - [place] 32.1 pg [facility] LABORATORY MCHC 33.7 32.0 - [facility] 35.7 gm/dL [facility] LABORATORY Platelets 164 145 - 357 [place] [employer] x10(3)/[facility] LABORATORY RDWSD 49.3 (H) 36.0 - [facility] 45.0 [facility] LABORATORY RDWCV 13.6 11.4 - [place] 13.8 % [facility] LABORATORY MPV 10.0 7.6 - 12.9 [place] LABORATORY nRBC % Auto 0.0 % [facility] LABORATORY nRBC Abs Auto 0.000 0.000 - [facility] 0.000 [facility] x10(3)/[facility] LABORATORY Specimen Anatomical Collection Method Collection Time Receive d Time (Source) Location / / Volume Laterality Blood specimen 07/20/2019 8:18 AM 019 8:21 (specimen) EDT AM EDT Resulting Agency Comment Spec In Lab Bobby Marshall MD HEMATOLOGY ORDERABLES Performing Organization Address City/[facility]/ZIP Code Phon e Number [place] [phone] HOSPITAL LABORATORY Drive Prothrombin Time (07/20/2019 8:18 AM EDT) P athologist Signature PT 11.3 9.4 - 12.5 [facility] LABORATORY INR 1.0 [facility] [...] Marshall MD HEMATOLOGY ORDERABLES Performing Organization Address City/[facility]/ZIP Code Phon e Number [place] [phone] HOSPITAL LABOR[address]ORY [address] documented in this encounter Visit Diagnoses Diagnosis Gastrointestinal hemorrhage, unspecified gastrointestinal hemorrhage type documented in this encounter Care Teams Radiology Aide Relationship Specialty Start Date End Date Bobby Das MD PCP - General 10/02/[address] [place] [address] [place] [address] documented as of this encounter
--- OUTSIDE RECORDS SUMMARY | 2022-06-23 03:51 | XMS_ITS | Encounter Summary ---
:1940 Author Organization [facility] Address [facility] [place] [address] Care Team Providers Name Role Phone Bobby Das MD Primary Care Provider Reason for Visit - Closed Specialty Diagnoses / Procedures Referred By Contact Refer red To Contact Procedures Bobby Das MD Film Library- Storage Only MR [facility] [place] [address] Referral ID Status Reason Start Date Expiration Date Visits Requ ested Visits Authorized [id number] Closed 02/23/2021 02/23/2022 1 1 Encounter Details Date Type Department Care Team Description 03/16/2020 Ancillary Procedure Radiology Library at Bobby Almaguer MD [address] [phone] [phone] (Wo bob) Social History Tobacco Use Types [...] 07/02/2022 Office Visit Vascular Surgery Jing Ghosh, DIRECTOR OF SLOT OPERATIONS [facility] DR VASCULAR SURGERY [place], [place] [address] (Wo rk) 09/02/2022 Clinical Support Dermatology Thai Lynn MD [facility] DR JENNY BILLY-DERMAT [place], [place] [address] (Wo rk) 09/02/2022 Procedure visit Dermatology Jace Lynn MD [facility] DR JENNY BILLY-DERMAT [place], [place] [address] (Wo rk) 09/05/2022 Appointment Cardiology Trinity Reid MD [facility] CARDIOLOGY [place], [place] [address] (Wo rk) 09/05/2022 Office Visit Cardiology Trinity Reid MD [facility] CARDIOLOGY [place], [place] 0[address] (Wo rk) documented as of [...] Organization Address City/State/ZIP Code Phon e Number [place], [place] documented in this encounter Visit Diagnoses Not on filedocumented in this encounter Care Teams Water Analyst Relationship Specialty Start Date End Date Bobby Das MD PCP - General 10/02/[address] [place] [address] [place] [phone] documented as of this encounter
--- OUTSIDE RECORDS SUMMARY | 2022-06-23 03:51 | XMS_ITS | Encounter Summary ---
:1940 Author Organization [facility] [place] [address] Care Team Providers Name Role Phone Bobby Das MD Primary Care Provider Reason for Visit Reason Comments Shortness of Breath Encounter Details Date Type Department Care Team Description 09/17/2011 Office Visit [facility] Hosp Torrey Giang SOB (shortness of [address] Bradley Mendoza MD breath) (Primary Dx) [facility] [phone] CARDIOLOGY DEPT. [place] [id number] Social History Tobacco Use Types Packs/Day Years Used Date Current Every Day Smoker 1 50 Smokeless Tobacco: Never Used Sex Assigned at Date Recorded Not on file documented as of this encounter Progress Notes Wai Scihlling - 09/22/2011 2:11 PM EST Torrey Giang - 09/17/2011 10:27 AM EST Subjective: Patient ID: Koko Zamora is a 70 y.o. male. HPI ROS Objective: Physical Exam Assessment and Plan: No problem-specific visit notes found for this encounter. Scanned note documented in this encounter Procedure Notes Provider, Scanning - 10/08/2011 11:00 AM ESTAssociated Order(s): SCAN DOC: LAB documented in this encounter Plan of Treatment Upcoming Encounters Date Type Specialty Care Team Description 07/02/2022 Office Visit Vascular Surgery Jing Ghosh, HIRAL [facility] VASCULAR SURGERY [place], [place] [address] (Wo rk) 09/02/2022 Clinical Support Dermatology Thai Lynn MD [facility] DR JENNY BILLY-DERMAT [place], [place] [address] (Wo rk) 09/02/2022 Procedure visit Dermatology Jace Lynn MD [facility] DR JENNY BILLY-DERMAT [place], [place] [address] (Wo rk) 09/05/2022 Appointment Cardiology Trinity Reid MD [facility] CARDIOLOGY [place], [place] [address] (Wo rk) 09/05/2022 Office Visit Cardiology Trinity Reid MD [facility] CARDIOLOGY [place], [place] [address] (Wo rk) documented as of this encounter Procedures Procedure Name Priority Date/Time Associated Diagnosis Comme nts LAB SCAN 10/08/2011 11:00 AM Results for this EST procedure are i n the results section . documented in this encounter Results SCAN DOC: LAB (10/08/2011 11:00 AM EST) Narrative 10/08/2011 11:00 AM EST Procedure Note Provider, Scanning - 10/08/2011 11:00 AM EST Scanning Provider MEDIA MGR SCAN EXT ORDR/RSLT documented in this encounter Visit Diagnoses Diagnosis SOB (shortness of breath) - Primary Shortness of breath documented in this encounter Care Teams Mortgage Advisor Relationship Specialty Start Date End Date Bobby Das MD PCP - General 10/02/[address] [place] [address] [place] [address] documented as of this encounter
--- OUTSIDE RECORDS SUMMARY | 2022-06-23 03:51 | XMS_ITS | Encounter Summary ---
:1940 Author Organization [facility] [place] [address] Care Team Providers Name Role Phone Bobby Das MD Primary Care Provider Encounter Details Date Type Department Care Team Description 09/22/2020 Telephone Pain and Spine Leon reid at [facility] Negra Butt, [place] [address] Social History Tobacco Use Types Packs/Day [...] 07/02/2022 Office Visit Vascular Surgery Jing Ghosh, DEDENTER [facility] VASCULAR SURGERY [place], [place] [address] (Wo rk) 09/02/2022 Clinical Support Dermatology Thai Lynn MD [facility] ER DR JENNY BILLY-DERMAT [place], [place] [address] (Wo rk) 09/02/2022 Procedure visit Dermatology Jace Lynn MD [facility] DR JENNY BILLY-DERMAT [place], [place] [address] (Wo rk) 09/05/2022 Appointment Cardiology Trinity Reid MD [facility] CARDIOLOGY [place], [place] [address] (Wo rk) 09/05/2022 Office Visit Cardiology Trinity Reid MD [facility] CARDIOLOGY [place], [place] [address] (Wo rk) documented as of this encounter Visit Diagnoses Not on filedocumented in this encounter Care Teams Account Relationship Manager Relationship Specialty Start Date End Date Bobby Das MD PCP - General 10/02/[address] [place] [address] [place] [phone] documented as of this encounter
--- OUTSIDE RECORDS SUMMARY | 2022-06-23 03:51 | XMS_ITS | Encounter Summary ---
:1940 Author Organization [facility] [place] [address] Care Team Providers Name Role Phone Bobby Das MD Primary Care Provider Reason for Referral Diagnostic Test (Routine) - Closed Specialty Diagnoses / Procedures Referred By Contact Refer red To Contact Radiology Diagnoses Compression fracture of T9 vertebra, initial encounter Alphonso Esquivel DO [facility] Interventionl Rad Procedures IR Vertebroplasty Thoracic [facility] DIAGNOSTIC [place] [address] [place] [address] Referral ID Status Reason Start Date Expiration Date Visits V isits Requested Authorized [id number] Closed Specialty 10/13/2020 04/13/2022 1 1 Service Requested Reason for Visit Diagnostic Test (Routine) - Closed Specialty Diagnoses / Procedures Referred By Contact Refer red To Contact Radiology Diagnoses Compression fracture of T9 vertebra, initial encounter Alphonso Esquivel DO [facility] Interventionl Rad Procedures IR Vertebroplasty Thoracic [facility] DIAGNOSTIC [place] [address] [place] [address] Referral ID Status Reason Start Date Expiration Date Visits V isits Requested Authorized [id number] Closed Specialty 10/13/2020 04/13/2022 1 1 Service Requested Encounter Details Date Type Department Care Team Description 10/25/2020 Hospital Encounter Radiology at [facility] Esquivel, Alphonso R, Compression fracture [facility] DO of T9 vertebra, [facility] initial encounter [place], [place] CENTER [address] DIAGNOSTIC [phone] [place] [address] Social History Tobacco Use Types Packs/Day Years [...] Vargas RN - 10/25/2020 9:13 AM EST [facility] Discharge Instructions for Vertebroplasty Your vertebroplasty [...] is during regular office hours, please call [phone]. If it is after regular office hours, oron weekends or holidays, please call [phone] and ask to speak to the Registered Route Associate on callfor Interventional Radiology. XXX You have [...] of : 1940 AGE: 80 y.o. Address: [address] [place] [address] (home) Mobile: No relevant phone numbers on file. Referring Provider: Alphonso Esquivel REASON FOR VISIT: Order Questions Answers Where will study be performed? [facility] Radiology [120] Is the patient on anticoagulant [...] 07/02/2022 Office Visit Vascular Surgery Jing Ghosh, PLASTIC FABRICATOR [facility] VASCULAR SURGERY [place], [place] [address] (Wo rk) 09/02/2022 Clinical Support Dermatology Thai Lynn MD [facility] DR JENNY BILLY-DERMAT [place], [place] [address] (Wo rk) 09/02/2022 Procedure visit Dermatology Jace Lynn MD [facility] DR JENNY BILLY[facility]DERMAT [place], [place] [address] (Wo rk) 09/05/2022 Appointment Cardiology Trinity Reid MD [facility] CARDIOLOGY [place], [place] [address] (Wo rk) 09/05/2022 Office Visit Cardiology Trinity Reid MD [facility] CARDIOLOGY [place], [place] [address] (Wo rk) documented as of [...] made and a 13g a introducer needle ([employer]) was advanced through the right pedicle and t o the ??T9 vertebral body during an intermittent fluoroscopic guidance. The [employer] biopsy cannula was advanced through the introducer [...] was made and a 13ga introducer needle (TipTap) was advanced through the left pedicle and [...] made and a 13g a introducer needle ([employer]) was advanced through the right pedicle and t o the T9 vertebral body during an intermittent fluoroscopic guidance. The [employer] biopsy cannula was advanced through the introducer [...] was made and a 13ga introducer needle (TipTap) was advanced through the left pedicle and [...] this report, please contact e number below. Alphonso Esquivel DO IMG IR ORDERABLES Surgical Pathology Report (10/25/2020 8:26 AM EST) Component Value Ref Test Analysis Performed At [facility] Method Time Signature Surgical [id number] ? Location: [facility] Pathology FREDERICK Report The signing pathologist has (i) examined [...] Bone & Soft Tissue Pathologist Performed at: ??-[facility] Dept. of Pathology, [place], [place] DISCUSSION I see no neoplastic process [...] Organization Address City/State/[place] [address] Specimen to Pathology (10/25/2020 8:26 AM EST) Specimen Anatomical Collection Method Collection Time Receive d Time (Source) Location / / Volume Laterality AP Specimen 10/25/2020 8:26 AM 0 8:26 EST AM EST [address] [facility] - 10/25/2020 8:26 AM EST Specimen requisition ordered. ??Separate Pathology report to follow Alphonso Elle Sierra DO PATHOLOGY/CYTOLOGY ORDERABLE S Performing Organization Address City/State/ZIP Code Phon e Number [place] [phone] documented in this encounter [...] Procedure) documented in this encounter Care Teams Diesel Dragline Operator Relationship Specialty Start Date End Date Bobby Das MD PCP - General 10/02/[address] [place] [address] [place] [address] documented as of this encounter
--- OUTSIDE RECORDS SUMMARY | 2022-06-23 03:51 | XMS_ITS | Encounter Summary ---
:1940 Author Organization [facility] [address] Care Team Providers Name Role Phone Bobby Das MD Primary Care Provider Encounter Details Date Type Department Care Team Description 12/20/2016 Telephone Pain Management at [facility] Kristin Schultz, RN [facility] [place] [address] Social History Tobacco Use Types Packs/Day Years Used Date Current Some Day Smoker 1 50 Smokeless Tobacco: Never Used Sex Assigned at Date Recorded Not on file documented as of this encounter Miscellaneous Notes Telephone Encounter - Kristin Schultz LPN - 12/20/2016 11:02 AM EST Pt called requesting that the Referral to Hematology and Oncology be sent to [facility] [place] [place]. Will Follow up up with the pain clinic after appointment. documented in this encounter Plan of Treatment Upcoming Encounters Date Type Specialty Care Team Description 07/02/2022 Office Visit Vascular Surgery Jing Ghosh, HIRAL [facility] VASCULAR SURGERY [place], [place] [address] (Wo bob) 09/02/2022 Clinical Support Dermatology Thai Lynn MD [facility] DR JENNY BILLY-DERMAT OLOGY [place], [place] [address] (Wo bob) 09/02/2022 Procedure visit Dermatology Jace Lynn MD [facility] DR ALVARADO RD-DERMAT [facility] [place], [place] [address] (Wo rk) 09/05/2022 Appointment Cardiology Trinity Reid MD [facility] CARDIOLOGY [place], [place] [address] (Wo rk) 09/05/2022 Office Visit Cardiology Trinity Reid MD [facility] CARDIOLOGY [place], [place] [address] (Wo rk) documented as of this encounter Visit Diagnoses Not on filedocumented in this encounter Care Teams Horse Farm Manager Relationship Specialty Start Date End Date Bobby Das MD PCP - General 10/02/[address] [place] [address] [place] [address] documented as of this encounter
--- OUTSIDE RECORDS SUMMARY | 2022-06-23 03:51 | XMS_ITS | Encounter Summary ---
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, sequela Closed compression fracture of L1 lumbar vertebra with delayed healing, subsequent encounter Malignant neoplasm of prostate Zbigniew Thompson PA [facility] Interventionl Rad Procedures IR Vertebroplasty Lumbar Multiple Levels IR Vertebral Augmentation Lumbar Single Level [facility] [place] [address] [place] [address] Fax: Referral ID Status Reason Start Date Expiration Date Visits V isits Requested Authorized [id number] Closed Specialty 07/13/2019 07/12/2020 1 1 Service Requested iagnostic Test (Routine) - Closed Specialty Diagnoses / Procedures Referred By Contact Refer red To Contact Radiology Diagnoses Closed compression fracture of L1 lumbar vertebra with delayed healing, subsequent encounter Malignant neoplasm of prostate Zbigniew Thompson PA [facility] Interventionl Rad Procedures [place] [address] [place] [address] Fax: Referral ID Status Reason Start Date Expiration Date Visits V isits Requested Authorized [id number] Closed Specialty 07/13/2019 07/12/2020 1 1 Service Requested Reason for Visit Reason Comments Back Pain Consultation (ANDREINA) - Closed Specialty Diagnoses / Procedures Referred By Contact Refer red To Contact [facility] Diagnoses Collapsed vertebra, not elsewhere classified, lumbar region, subsequent encounter for fracture with routine healing Bobby Das MD [facility] Pain And [facility] [address] [place], [place] Drive [address] [place] [address] Phone: Fax: Referral ID Status Reason Start Date Expiration Date Visits V isits Requested Authorized [id number] Closed Consult, 06/30/2019 06/29/2020 1 1 [facility] Encounter Details Date Type Department Care Team Description 07/13/2019 Office Visit [facility] Zbigniew Thompson, Closed compression fracture of L1 lumbar vertebra with delayed healing, subsequent encounter; at [facility] Malignant neoplasm of prostate; [facility] Age -related 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, sequela [place] [address] [phone] Social History Tobacco Use Types Packs/Day Years [...] 07/02/2022 Office Visit Vascular Surgery Jing Ghosh, PAYROLL ADMINISTRATIVE ASSISTANT [facility] VASCULAR SURGERY [place], [place] [address] (Wo rk) 09/02/2022 Clinical Support Dermatology Thai Lynn MD [facility] DR JENNY BILLY-DERMAT [place], [place] [address] (Wo rk) 09/02/2022 Procedure visit Dermatology Jace Lynn MD [facility] DR JENNY BILLY[facility]DERMAT [place], [place] [address] (Wo rk) 09/05/2022 Appointment Cardiology Trinity Reid MD [facility] CARDIOLOGY [place], [place] [address] (Wo rk) 09/05/2022 Office Visit Cardiology Trinity Reid MD [facility] CARDIOLOGY [place], [place] [address] (Wo rk) documented as [...] made and a 13g a introducer needle ([employer]is) was advanced through the right pedicle and [...] made an d a 13ga introducer needle ([employer]) was advanced through the left pedicle and [...] ? Electronically signed by: Bobby Sullivan MD, [facility] ([phone]), at 07/20/2019 1:20 PM Procedure Note Bobby [...] made and a 13g a introducer needle ([employer]) was advanced through the right pedicle and [...] made an d a 13ga introducer needle ([employer]) was advanced through the left pedicle and [...] made and a 13g a introducer needle ([employer]) was advanced through the right pedicle and [...] made an d a 13ga introducer needle ([employer]) was advanced through the left pedicle and [...] ? Electronically signed by: Bobby Sullivan MD, [facility] ([phone]), at 07/20/2019 1:20 PM Procedure Note Bobby [...] made and a 13g a introducer needle ([employer]) was advanced through the right pedicle and [...] made an d a 13ga introducer needle (Care[employer]is) was advanced through the left pedicle and [...] sequela documented in this encounter Care Teams Clinical Admissions Manager Relationship Specialty Start Date End Date Bobby Das MD PCP - General 10/02/[address] [place] [address] [place] [phone] documented as of this encounter
--- OUTSIDE RECORDS SUMMARY | 2022-06-23 03:51 | XMS_ITS | Encounter Summary ---
:1940 Author Organization [place] [address] Care Team Providers Name Role Phone Bobby Das MD Primary Care Provider Reason for Referral Diagnostic Test (Routine) - Specialty Diagnoses / Procedures Referred By Contact Refer ramila To Contact Radiology Diagnoses Chest pain, unspecified type Chronic abdominal pain Chano Rebolledo MD [facility] Rad Ct Scan Procedures CT Chest w Contrast CT Chest wo Contrast (Generic) [facility] [place] [address] [place] [address] Referral ID Status Reason Start Date Expiration Visits Visits Date Requested Authorized [id number] Specialty 12/13/2016 12/13/2017 1 1 Service Requested Consultation (Routine) - Closed Specialty Diagnoses / Procedures Referred By Contact Refer ramila To Contact Neurology Diagnoses Radiculopathy of cervical region Chano Rebolledo MD [facility] 3c [facility] [place] [address] [place] [address] Referral ID Status Reason Start Date Expiration Date Visits V isits Requested Authorized [id number] Closed Test Only 12/13/2016 12/13/2017 1 1 Diagnostic Test (Routine) - Closed Specialty Diagnoses / Procedures Referred By Contact Refer red To Contact Radiology Diagnoses Chest pain, unspecified type Chronic abdominal pain Chano Rebolledo MD [facility] Rad Ct Scan Procedures CT Abdomen & Pelvis w Contrast [facility] [place] [address] [place] [address] Referral ID Status Reason Start Date Expiration Date Visits V isits Requested Authorized [id number] Closed Specialty 12/13/2016 12/13/2017 1 1 Service Requested Reason for Visit Reason Comments Pain Management Neck Pain Bilateral Arm Pain burning across sternum and r ibs, both sides Consultation (Routine) - Closed Specialty Diagnoses / Procedures Referred By Contact Refer red To Contact Pain Management Diagnoses cervical radiculopathy Bobby Das MD [facility] [address] [place] [address] [address] [place] [address] [address] [place] [address] Fax: Referral ID Status Reason Start Date Expiration Date Visits V isits Requested Authorized [id number] Closed Consult, 11/22/2016 11/22/2017 1 1 Test & Treat Encounter Details Date Type Department Care Team Description 12/13/2016 Office Visit Pain Management at [facility], Chest adrianna n, unspecified type; Jose Sullivan MD Chronic abdominal pain; [facility] Radiculop athy of cervical region [facility] [place] [address] [place] [address] Social History Tobacco Use Types Packs/Day Years Used Date Current Some Day Smoker 1 50 Smokeless Tobacco: Never Used Sex Assigned at Date Recorded Not on file documented as of this encounter Last Filed Vital Signs Vital Sign Reading Time Taken Comments Blood Pressure 112/58 12/13/2016 12:39 PM EST Pulse 88 12/13/2016 12:39 PM EST Temperature - - Respiratory Rate - - Oxygen Saturation 99% 12/13/2016 12:39 PM EST Inhaled Oxygen Concentration - - Weight 78 kg (172 lb) 12/13/2016 12:39 PM EST verbal Height 175.3 cm (5' 9) 12/13/2016 12:39 PM EST Body Mass Index 25.4 12/13/2016 12:39 PM EST documented in this encounter Progress Notes Chano Rebolledo MD - 12/13/2016 1:00 PM EST [facility] [place] [place] [address] Phone: PAIN MANAGEMENT NEW PATIENT / CONSULTATION NOTE DATE OF VISIT 12/13/2016 Patient Koko Zamora 1940 REFERRING PROVIDER Bobby Das MD [address] [place] [address] [place] [address] PRIMARY CARE PROVIDER Bobby Das MD CHIEF COMPLAINT: Koko Zamora is a 76 y.o. man with chest and arm pain, who is seen in consultation at the request of Dr. Bobby Das for evaluation, recommendations, and management.The history is obtained from the patient, and I have reviewed medical records provided by the referring physician and located in the electronic medical record to fill in gaps in the patient's recollection of events, treatments and outcomes. PER PATIENT: Have you ever gone to another pain center? No HPI 76-year-old man with sudden onset of burning/prickly pain from his chest to both flanks and shootingpain from his wrists to thumb starting in the August,. The burning sensation initially in the mid-sternum, out the rib cage bilaterally below the nipple, and to the sides but not the back. He cannot stretch his both of his arms out due to an electrical shock-like pain which starts at the wrists to the thumbs which is starting to affect the outer hands/5th digits but not proximal to the wrists, but he has numbness of both of his entire arms when he sleeps on his stomach with his arms outstretched. He denies neck pain nor exacerbation of this symptoms with neck rotation, flexion, and extension.He states feels that there is a hot bar across his sternum, but does not have pain with deep pressure on the chest. There is pain (right > left) across his ribcage when he takes her shirt on and off, and he has pain when water touches his anterior chest initially but not after continued exposure to the water. He has had no rash, no cold/heat changes in the area affected, no excessive sweating inthe area, and no inciting incident. The pain is constant, better when he is active, and light touch significantly worsens the pain. He denies depression, no difficulty sleeping, and no suicidal ideation. He denies bowel/bladder changes nor symptoms in other parts of the body at this time. He is on gabapentin 100mg po tid which he stopped after three days as he had no benefit. He did haveopen heart surgery in 2000 but did not have these symptoms at that time. PAIN ASSESSMENT: Description: Popping, clicking, grinding sounds: No Weakness, numbness, tingling: Arm numbness Variation/Pattern: Worse w/activity and tactile pressure on chest Saddle Anesthesia: No Other associated symptoms: Outstetching arms for hand sensation, pressure/tactile for chest myD-H Pain 12/13/2016 VR12 - Physical Summary Component 56.14 VR12 - Mental Component Summary 58.76 Audit C 6 (High Risk) MODEMS Expectation 77 Family History of Substance Abuse (Male) 0 Personal History of Substance Abuse(Male) 0 Age 0 History of Preadolescent sexual abuse(Male) 0 Psychological Disease 0 ORT Total Scores (Male) 0 BPI Severity Score 8 BPI Interference Score 2.71 CURRENT THERAPIES: none PAST THERAPIES: Acetaminophen: No NSAID: No Opioids: No Antidepressants: No Anticonvulsants: gabapentin 100mg tid x 3 days (stopped due to not benefiting patient) Muscle relaxants: No Topicals: No Herbal supplements/vitamins: No Injections: No Surgery: Not for this concern Physical Therapy: No TENS: No Acupuncture: No Chiropractic: No Massage: No Meditation/Imagery: No CBT: No Yoga/Nico Chi/ Movement: No Marijuana: No Anti-inflammatory diet: No ADVERSE DRUG REACTIONS Allergies as of 12/13/2016 - Review Complete 12/13/2016 Allergen Reaction Noted ??? Aspirin Other (See Comments) 06/28/2011 MEDICATIONS The [place] and [place] Prescription Monitoring [place] were checked & no concerns identified Medications 12/13/16 1238 Medication Sig Taking? CRESTOR 40 mg Tablet Take 40 mg by mouth daily. Yes fluticasone (FLONASE) 50 mcg/actuation nasal spray 1 spray by Each Nare route daily. Yes MULTIVITAMIN (MULTIPLE VITAMIN ORAL) Take 1 tablet by mouth daily. Yes REVIEW OF SYSTEMS: (includes adverse effects of opioids) Constitutional: denies fever, chills, cough, signs of infection, weight changes, fatigue HEENT: denies headaches, blurry/limited vision Cardiac:denies chest pain or pressure, palpitations Lungs: denies SOB on exertion GI: denies nausea, vomiting, acid reflux, constipation, or loss of control : denies urinary hesitation, retention or incontinence Neuro: denies dizziness, numbness, seizures, tremors, sedation, memory loss, confusion Muscle skeletal: denies use of ambulatory aide, falls Skin: denies open sores or rashes Psychological/Mood: Sleep:Sleep apnea: Sexual/reproductive: Chance of ? 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 RISK ASSESSMENT: Smokin-20 cigarettes/day Alcohol:How often do you have a drink containing alcohol ? 3 6-packs/week Opioid Risk Tool Female Male 1. Family [...] 2 Depression [] 1 [] 1 TOTAL: 0 Comments about ORT in relation to this patient: Opioid Risk Category: Low risk 0-3 MEDICAL HISTORY Basal cell carcinoma, hyperlipidemia, gerd SURGICAL HISTORY Open heart surgery in 2000 FAMILY HISTORY No family history on file. PHYSICAL EXAMINATION Vitals: 12/13/16 1239 BP: 112/58 Pulse: 88 Body mass index is 25.4 kg/(m^2). Visit Vitals ??? BP 112/58 ??? Pulse 88 ??? Ht 175.3 cm (5' 9) ??? Wt 78 kg (172 lb) No flowsheet data found. Appearance/ Behavior Well groomed, good eye contact, relaxed, cooperative, normal speech, no acute distress, no involuntary movements Eyes Sclera anicteric, conjunctiva clear. ENT Hearing grossly intact Lungs CTA bilaterally Cardiovascular Reg RR without murmur, Skin No rash, asymmetric hair loss, bruises, scars, swelling Musckuloskeletal Inspection/Palpation/ Range of Motion/Facet Loading maneuvers Gait: Normal Assistive device: Normal Heel, toe, heel to toe: Normal Inspection: good alignment, no excessive curvature, shoulder and hip levels equal bilaterally; no skin breakdown Palpation: Deep palpation with no pain the chest. Pain at bilateral snuff boxes of the hands. Neuro Motor Strength Segment Muscle Action Bilateral Results C5 Detoid Shoulder abduction 5/5 C5 Biceps Elbow flexion 5/5 C6 Extensor carpi radialis Wrist extension 5/5 C7 Triceps Elbow extension 5/5 C8, T1 Hand intrinsics Grasp 5/5 L2-5, S 1 Gluteus medius Hip Adduction 5/5 L4-5, S1 Gluteus medius Hip Abduction 5/5 L2 Iliopsoas Hip flexion 5/5 L3 Quadriceps Knee extension 5/5 L4 Tibialis anterior Ankle Dorsiflexion 5/5 L5 Extensor hallucis Great toe extension 5/5 S1 Gastrocnemius Ankle Plantar flexion 5/5 Reflexes: Segment Tendon Bilateral C5 Biceps 2+ C6 Brachioradialis 2+ C7 Triceps 2+ Upper Williamson Neg L3-4 Patella 2+ S1 Ankle 2+ Lower Babinski Down going Clonus Neg Sensory Exam: Allodynia and cold hyperesthesia to medial left 1/3rd and whole right chest T5 to T8 levels Vascular: warm to touch + 2 pedal pulses RADIOGRAPHIC STUDIES I have personally reviewed images from the following studies: [X ray 12-23-16]: marked disc space narrowing from C4-5 through C6-7 levels with mild left C6-7 foraminal narrowing and moderately marked C5-6 narrowing secondary to spurs [MRI cervical 1-10-17]: multilevel foraminal stenosis from C4-5 to C6-7 with mild C4-5 stenosis, moderate L and R C5-6 foraminal stenosis, and mild diffuse disc osteophyte complex at C6-7 ASSESSMENT The patient is a 76-year-old man with 4 months of constant pain in the distribution of the right T5-T8 levels that does cross the midline to the left but not dorsal to his right side with exam findingsof cold hyperesthesia and allodynia in these areas. He also has pain on palpation of his bilateral samano perficial radial arteries, which may not necessarily be connected with his chest/abdominal symptoms.An occult malignancy causing referred pain will need to be ruled out. Although the patient is not very interested in treating the symptoms at this time, he has agreed to try a compound cream. PLAN/RECOMMENDATIONS We discussed the following recommendations: (1) Will obtain EMG of the arms (2) Will obtain CT chest/abdomen/pelvis w/IV contrast (3) Will prescribe patient compound cream of baclofen 2% / gabapentin 6% / lidocaine 5% from [facility]. Follow up: -Patient will be called after results are obtained. Koko J Zamora had the opportunity to ask questions and indicated that all questions were answered to his satisfaction. Thank you for this referral, Bobby Das MD [address] [place] [address]. Chano Rebolledo MD Leonel Orozco MD - 12/13/2016 1:00 PM EST I have seen the patient and reviewed the resident's above history and I agree with the details as written. I personally interviewed the patient and performed critical or diaz elements of the physical examination as appropriate. The assessment and management plan were formulated in discussion with me and I agree with them as documented. Leonel Orozco MD, MS documented in this encounter Miscellaneous Notes Addendum Note - Chano Rebolledo MD - 12/13/2016 2:40 PM EST Addended by: CHANO REBOLLEDO on: 12/13/2016 02:40 PM Modules accepted: Orders documented in this encounter Plan of Treatment Upcoming Encounters Date Type Specialty Care Team Description 07/02/2022 Office Visit Vascular Surgery Jing Ghosh, RE [facility] VASCULAR SURGERY [place], [place] [address] (Wo rk) 09/02/2022 Clinical Support Dermatology Thai Lynn MD [facility] DR JENNY BILLY-DERMAT [place], [place] [address] (Wo rk) 09/02/2022 Procedure visit Dermatology Jace Lynn MD [facility] DR JENNY BILLY[place], [place] [address] (Wo rk) 09/05/2022 Appointment Cardiology Trinity Reid MD [facility] CARDIOLOGY [place], [place] [address] (Wo rk) 09/05/2022 Office Visit Cardiology Trinity Reid MD [facility] CARDIOLOGY [place], [place] [address] (Wo rk) Scheduled Referrals Name Type Priority Associated Diagnoses Order S chedule Referral to Outpatient Referral Routine Radiculopathy of Orde red: Neurology cervical region 12/13/2016 documented as of this encounter Results CT Chest w Contrast [...] quezada 12/17/2016 4:06 PM Leonel Orozco MD IMG CT ORDERABLES CT Abdomen & Pelvis w [...] quezada 12/17/2016 4:06 PM Leonel Orozco MD IMG CT ORDERABLES documented in this encounter Visit Diagnoses Diagnosis Chest pain, unspecified type Chronic abdominal pain Abdominal pain, unspecified site Radiculopathy of cervical region Brachial neuritis or radiculitis nos Chest pain, unspecified type Chronic abdominal pain Abdominal pain, unspecified site documented in this encounter Care Teams General House Worker Relationship Specialty Start Date End Date Bobby Das MD PCP - General 10/02/[address] [place] [address] [place] [address] documented as of this encounter
--- OUTSIDE RECORDS SUMMARY | 2022-06-23 03:55 | XMS_ITS | Clinical Summary ---
:1940 Author Organization [facility] Address [address] [place] [address] Care Team Providers Name Role Phone Bobby [...] Problem Noted Date Malignant neoplasm of prostate ([facility]) 11/19/2017 Cancer Staging: Clinical stage from 11/19: Stage IIB (cT2a, cN0, cM0, PSA: 12.8, Grade Group: 2) - Signed by Delores Gutierrez III, MD on 11/19/2017 Medical History Medical History Date Comments Cancer ([facility]) (HCC) Hyperlipidemia Family History Medical History Relation [...] T ype Group Dates MEDICARE MEDICARE A/B [id number] 2007-Pre [address] edicare GL sent [address] [place] [address] [facility] [id number] 2021-Pre [address] Commercial GL [facility]ATIONAL sent [place], [place] [phone] COMPANY Koko Zamora Personal/Family Self 1940 [address] (Home) [place] [address] Koko Zamora Personal/Family Self 1940 [address] (Home) [place] [address] Koko Zamora Personal/Family Self 1940 [address] (Geraldine) [place] [address] Care Teams Track Coach Relationship Specialty Start Date End Date Bobby Das MD PCP - General 07/06/[address] [place] [address],[address] [place] [id number]
--- OUTSIDE RECORDS SUMMARY | 2022-06-23 03:56 | XMS_ITS | Encounter Summary ---
:1940 Author Organization [facility] Address [address] [place] [address] Care Team Providers Name Role Phone Bobby Das MD Primary Care Provider Reason for Visit Reason Onset Date Comments Appointment Related 03/19/2018 Encounter Details Date Type Department Care Team Description 03/19/2018 Telephone [facility] Dominique Mirza, [place] ointment Related Urology - James campo RN [address] [place] [address] Social History Tobacco Use Types [...] there. ill plan to see him at [facility]. Tc to pt to advise he contact [facility] and be sure [...] so, can the pt be seen at [facility] as originally suggested in 's 01/05 progress note. Will call patient to let him know if he needs to f/u with and if so, can he be seen at [facility]. documented in this encounter Plan of Treatment Not on filedocumented as of this encounter Visit Diagnoses Not on filedocumented in this encounter Care Teams Mine Motor Engineer Relationship Specialty Start Date End Date Bobby Das MD PCP - General 07/06/[address] [place] [address],[address] [place] [address] documented as of this encounter
--- OUTSIDE RECORDS SUMMARY | 2022-06-23 03:56 | XMS_ITS | Encounter Summary ---
:1940 Author Organization [facility] Address [address] [place] [address] Care Team Providers Name Role Phone Bobby Das MD Primary Care Provider Reason for Visit Reason Comments Prostate Cancer Encounter Details Date Type Department Care Team Description 02/03/2018 Radiation Therapy [facility] Aries Gutierrez alignant neoplasm Visit Radiation Oncology Felix EAST MD of [facility] [place] - [address] ([facility]) ([facility] [address] [place] [address] (Primary Dx) [facility], [address] [place] [address] [address] [place] [address] Social History Tobacco Use Types Packs/Day Years Used Date Current Every Day Smoker Smokeless Tobacco: Never Used Sex Assigned at Date Recorded Not on file documented as of this encounter Progress Notes Delores Gutierrez III, MD - 02/03/2018 8695 EDT On Treatment Visit Assessment: Koko Zamora is currently receiving radiation therapy treatment and is being seen today for his weekly on treatment visit. The encounter diagnosis was Malignant neoplasm of prostate ([facility]). Assessment: Assessment Completed By: Felix Gutierrez MD (02/03/18 8383) Radiation Therapy: Cumulative RT Dose 600 cGy [...] Changes: None Sj Gutierrez MD Radiation Oncology [phone] (office) [phone] (pager) documented in this encounter Plan of [...] documented as of this encounter Care Teams Estate And Trust Tax Principal Relationship Specialty Start Date End Date Bobby Das MD PCP - General 07/06/[address] [place] [address],[address] [place] [address] documented as of this encounter
--- OUTSIDE RECORDS SUMMARY | 2022-06-23 03:56 | XMS_ITS | Encounter Summary ---
:1940 Author Organization [facility] Address [address] [place] [address] Care Team Providers Name Role Phone Bobby Das MD Primary Care Provider Encounter Details Date Type Department Care Team Description 03/04/2018 Documentation Visit [facility] Aries Gutierrez Radiation Oncology - III, [address] [address] [address], [place] [phone] (Wo rk) Social History Tobacco Use Types Packs/Day Years Used Date Current Every Day Smoker Smokeless Tobacco: Never Used Sex Assigned at Date Recorded Not on file documented as of this encounter Miscellaneous Notes Treatment Summary - Delores Gutierrez III, MD - 03/04/2018 1339 EDT Images from the original note were not included. RADIATION ONCOLOGY TREATMENT SUMMARY SITE, HISTOPATHOLOGY AND STAGE: [id number], PSA 12.8 [place] score 3+4 = 7 adenocarcinoma prostate. He [...] Dr. José. Sj Gutierrez MD Radiation Oncology [phone] (office) [phone] (pager) This note has been prepared with voice recognition software. Please excuse network internship errors. documented in this encounter Plan of Treatment Not on filedocumented as of this encounter Visit Diagnoses Not on filedocumented in this encounter Care Teams Stone Chimney Mason Relationship Specialty Start Date End Date Bobby Das MD PCP - General 07/06/[address] [place] [address],[address] [place] [phone] documented as of this encounter
--- OUTSIDE RECORDS SUMMARY | 2022-06-23 03:56 | XMS_ITS | Encounter Summary ---
:[address] [facility] Address [address] [place] [address] Care Team Providers Name Role Phone Bobby Das MD Primary Care Provider Reason for Visit Reason Comments Follow-up Injection Encounter Details Date Type Department Care Team Description 01/05/2018 Office Visit [facility] Erlin José MD Malignant neoplasm of Urology - Main [address] [place] [address] ([facility]) [facility]) (Primary [address] [facility], [facility]) [place] [address] [address], [place] [address] (Wo rk) Social History Tobacco [...] Progress Notes Chino José MD - 01/05/2018 9131 EST Chief Complaint: Chief Complaint Patient presents with ??? Follow-up Injection HPI: Koko is a 77 y.o. male with prostate cancer. Grant presented with an elevated PSA to 12.8 shaw palpable nodule and on biopsy had 2 out of 12 cores positive for [place] 3+3 and [place] 3+4 prostate cancer. T2a. He previously had [...] will proceed with radiation therapy with Dr. Gutierrez starting next month. Plan: Follow up with Dr. Gutierrez this week See me at [facility] after radiation therapy is complete with a [...] mg documented in this encounter Care Teams Tilt Tray Driver Relationship Specialty Start Date End Date Bobby Das MD PCP - General 07/06/[address] [place] [address],[address] [place] [address] documented as of this encounter
--- OUTSIDE RECORDS SUMMARY | 2022-06-23 03:56 | XMS_ITS | Encounter Summary ---
:1940 Author Organization [facility] Address [address] [place] [address] Care Team Providers Name Role Phone Bobby Das MD Primary Care Provider Reason for Visit Reason Onset Date Comments Follow-up 01/12/2018 Encounter Details Date Type Department Care Team Description 01/12/2018 Telephone [facility] Radiation De Law RN Follow-up Oncology - [address] [address] Social History Tobacco Use Types Packs/Day Years Used Date Current Every Day Smoker Smokeless Tobacco: Never Used Sex Assigned at Date Recorded Not on file documented as of this encounter Miscellaneous Notes Telephone Encounter - Isela Law RN - 01/12/2018 3659 EST This is a planned post procedure [...] on filedocumented in this encounter Care Teams Heeler Machine Relationship Specialty Start Date End Date Bobby Das MD PCP - General 07/06/[address] [place] [address],[address] [place] [address] documented as of this encounter
--- OUTSIDE RECORDS SUMMARY | 2022-06-23 03:56 | XMS_ITS | Encounter Summary ---
:1940 Author Organization [facility] Address [address] [place] [address] Care Team Providers Name Role Phone Bobby Das MD Primary Care Provider Reason for Visit Reason Comments Cancer Encounter Details Date Type Department Care Team Description 02/13/2018 Radiation Therapy [facility] Isela Law Ma lignant neoplasm of Visit Radiation Oncology - RN prostat e ([facility]) Main Aroda (Primary Dx) [address] [place] [address] Social History Tobacco Use Types Packs/Day [...] encounter diagnosis was Malignant neoplasm of prostate ([facility]). Assessment: Assessment Completed By: Isela Law [...] prostate documented in this encounter Care Teams Pocket Operator Relationship Specialty Start Date End Date Bobby Das MD PCP - General 07/06/[address] [place] [address] ,[address] [place] [address] documented as of this encounter
--- OUTSIDE RECORDS SUMMARY | 2022-06-23 03:56 | XMS_ITS | Encounter Summary ---
:1940 Author Organization [facility] Address [address] [place] [address] Care Team Providers Name Role Phone Bobby Dsa MD Primary Care Provider Encounter Details Date Type Department Care Team Description 04/12/[address] [facility] Outr Resulting Lab, Pathology & Laboratory Provider [facility] [address] [place], [place] [phone] Social History Tobacco Use Types Packs/Day Years [...] Testosterone 269 229 - 902 ng/dL [facility] Specimen Blood - Venous blood (substance) Narrative [facility] - 04/12/2021 22:19 EDT The results of this assay can be falsley elevated due to the consumption of Biotin. Performing Organization Address City/State/ZIP Code Phon e Number [facility] [address] [place] [address] SERVICES documented in this encounter Visit Diagnoses Not on filedocumented in this encounter Care Teams Self Propelled Mining Machine Operator Relationship Specialty Start Date End Date Bobyb Das MD PCP - General 07/06/[address] [place] [address] ,[address] [place] [address] documented as of this encounter
--- OUTSIDE RECORDS SUMMARY | 2022-06-23 03:56 | XMS_ITS | Encounter Summary ---
:1940 Author Organization [facility] Address [address] [place] [address] Care Team Providers Name Role Phone Bobby Das MD Primary Care Provider Reason for Visit Reason Onset Date Comments Follow-up 03/06/2018 Encounter Details Date Type Department Care Team Description 03/06/2018 Telephone [facility] Theron Rojas RN Follow-up Radiation Oncology - Main [address] [place] [phone] [place] [address] Social History Tobacco Use Types Packs/Day Years [...] on filedocumented in this encounter Care Teams Grinding Room Inspector Relationship Specialty Start Date End Date Bobby Das MD PCP - General 07/06/[address] [place] [address],[address] [place] [address] documented as of this encounter
--- OUTSIDE RECORDS SUMMARY | 2022-06-23 03:56 | XMS_ITS | Encounter Summary ---
:1940 Author Organization [facility] Address [address] [place] [address] Care Team Providers Name Role Phone Bobby Das MD Primary Care Provider Reason for Visit Reason Comments Cancer Encounter Details Date Type Department Care Team Description 02/24/2018 Radiation Therapy [facility] Isela Law Ma lignant neoplasm of prostate (HCC-CMS) (Primary Dx); Visit Radiation Oncology - DION roldan deprivation therapy Main [place] [address] [place] [address] Social History Tobacco Use Types Packs/Day [...] Visit Diagnoses Diagnosis Malignant neoplasm of prostate ([facility]) (HCC) - Primary Malignant neoplasm of prostate Androgen deprivation therapy Encounter for therapeutic drug monitorin g documented in this encounter Care Teams Environmental Services Director Relationship Specialty Start Date End Date Bobby Das MD PCP - General 07/06/[address] [place] [address] ,[address] [place] [address] documented as of this encounter
--- OUTSIDE RECORDS SUMMARY | 2022-06-23 03:56 | XMS_ITS | Encounter Summary ---
:1940 Author Organization [facility] Address [address] [place] [address] Care Team Providers Name Role Phone Bobyb Dsa MD Primary Care Provider Reason for Referral Laboratory Services (Routine) - Closed Specialty Diagnoses / Procedures Referred By Contact Refer red To Contact Diagnoses Malignant neoplasm of prostate ([facility] ([facility]) Aries Gutierrez III, Procedures PSA TOTAL, DIAGNOSTIC MD [address] [place] [phone] Referral ID Status Reason Start Date Expiration Date Visits Requ ested Visits Authorized [id number] Closed 07/11/2019 1 1 Encounter Details Date Type Department Care Team Description 01/08/2019 Documentation Visit [facility] Aries Gutierrez Malignant neoplasm Radiation Oncology Felix EAST MD of prostate - [address] ([facility]) (Primary 111 [facility] Dx) [facility], [address] [place] [address] [address] Social History Tobacco Use Types [...] Visit Diagnoses Diagnosis Malignant neoplasm of prostate ([facility]) (HCC) - Primary Malignant neoplasm of prostate documented in this encounter Care Teams Manufacturing Controls Engineer Relationship Specialty Start Date End Date Bobby Das MD PCP - General 07/06/[address] [place] [address],[address] [place] [phone] documented as of this encounter
--- OUTSIDE RECORDS SUMMARY | 2022-06-23 03:56 | XMS_ITS | Encounter Summary ---
:1940 Author Organization [facility] Address [address] [place] [address] Care Team Providers Name Role Phone Bobby Das MD Primary Care Provider Encounter Details Date Type Department Care Team Description 07/16/2019 Hospital Encounter [facility] - Dayne Gutierrez [facility] III, MD [id number] [place] [address] [facility] [address] [place] [address] (Wo rk) Social History Tobacco [...] on filedocumented in this encounter Care Teams Sandblast Or Shotblast Equipment Tender Relationship Specialty Start Date End Date Bobby Das MD PCP - General 07/06/[address] [place] [address] ,[address] [place] [phone] documented as of this encounter
--- OUTSIDE RECORDS SUMMARY | 2022-06-23 03:56 | XMS_ITS | Encounter Summary ---
:1940 Author Organization [facility] Address [address] [place] [address] Care Team Providers Name Role Phone Bobby Das MD Primary Care Provider Encounter Details Date Type Department Care Team Description 08/28/2020 Lab Requisition [facility] Outr Resulting Lab, Pathology & Laboratory Provider [facility] [address] [place], [place] [phone] Social History Tobacco Use Types Packs/Day Years [...] (08/28/2020 9:58 EDT) COVID-19 rt-PCR NEGATIVE Negative [facility] Result Comment: LABORATORY 2019-novel Coronavirus [...] Organization Address City/State/ZIP Code Phon e Number [facility] [place] COVID-19 TESTING (08/28/2020 9:58 EDT) Pathologist [facility] COVID-19 rt-PCR NEGATIVE Negative [facility] Result Comment: LABORATORY 2019-novel Coronavirus (2019 [...] Administration's Emergency Use Authorization. Performing Lab [facility] LABORATORY SERVICES Specimen Swab Performing Organization Address City/State/ZIP Code Phon e Number [facility] [address] [place] [address] SERVICES [facility] [place], [place] documented in this encounter Visit Diagnoses Not on filedocumented in this encounter Care Teams Plating Department Helper Relationship Specialty Start Date End Date Bobby Das MD PCP - General 07/06/[address] [place] [address] ,[address] [place] [address] documented as of this encounter
--- OUTSIDE RECORDS SUMMARY | 2022-06-23 03:56 | XMS_ITS | Encounter Summary ---
:1940 Author Organization [facility] Address [address] [place] [address] Care Team Providers Name Role Phone Bobby Das MD Primary Care Provider Encounter Details Date Type Department Care Team Description 02/25/2018 Documentation Visit [facility] Adama Vargas RN Radiation Oncology - [address] [place] [address] [place] [address] Social History Tobacco Use Types Packs/Day Years Used Date Current Every Day Smoker Smokeless Tobacco: Never Used Sex Assigned at Date Recorded Not on file documented as of this encounter Progress Notes Lynn Vargas RN - 02/25/2018 7963 EDT Koko Zamora requested to be seen today. He is reporting increasing pelvic pressure when sitting on a hard surface and that he didn't have his usual bowel movement this morning. It was explained to him that pelvic radiation can cause some inflammation. He was encouraged to try Advil or Aleve for 3 days. He was also encouraged to drink more water and try Citrucel for his bowels. Koko Zamora was instructed to call the Radiation Oncology Department with any questions or concerns. documented in this encounter Plan of Treatment Not on filedocumented as of this encounter Visit Diagnoses Not on filedocumented in this encounter Care Teams Foreign Broadcast Specialist Relationship Specialty Start Date End Date Bobby Das MD PCP - General 07/06/[address] [place] [address],[address] [place] [address] documented as of this encounter
--- OUTSIDE RECORDS SUMMARY | 2022-06-23 03:56 | XMS_ITS | Encounter Summary ---
:[address] [facility] Address [address] [place] [address] Care Team Providers Name Role Phone Bobby Das MD Primary Care Provider Encounter Details Date Type Department Care Team Description 10/29/2017 Hospital Encounter [facility]- Devi Unknown, Provider, [facility] [address] [facility] [phone] [place] [address] (Work) [phone] Social History Tobacco Use Types Packs/Day Years Used Date Never Assessed Sex Assigned at Date Recorded Not on file documented as of this encounter Discharge Disposition Disposition Code Departure Means Destination Home or Self [facility]pc documented in this encounter Plan of Treatment Not on filedocumented as of this encounter Visit Diagnoses Not on filedocumented in this encounter Care Teams Knot Tying Operator Relationship Specialty Start Date End Date Bobby Dsa MD PCP - General 07/06/[address] [place] [address],[address] [place] [address] documented as of this encounter
--- OUTSIDE RECORDS SUMMARY | 2022-06-23 03:56 | XMS_ITS | Encounter Summary ---
:1940 Author Organization [facility] Address [address] [place] [address] Care Team Providers Name Role Phone Abby Das MD Primary Care Provider Encounter Details Date Type Department Care Team Description 04/22/2018 Results Only [facility] Abby Das MD [phone] [place] [address],[address] [place], [place] [phone] (Wo rk) Social History Tobacco Use Types Packs/Day Years Used Date Current Every Day Smoker Smokeless Tobacco: Never Used Sex Assigned at Date Recorded Not on file documented as of this encounter Plan of Treatment Not on filedocumented as of this encounter Procedures Procedure Name Priority Date/Time Associated Diagnosis Comme [facility] SURGICAL PATHOLOGY Routine 04/22/2018 8:40 EDT Re sults for this procedure are i n the results section. documented in this encounter Results SURGICAL PATHOLOGY (04/22/2018 8:40 EDT) Pathology Report: SURGICAL PATHOLOGY REPORT [facility] Reports generated via electronic interface contain abram ginal data; LABORATORY however they are lacking the format of the original re port. SERVICES Caution should be taken when reading/interpreting unfo rmatted reports. Name: ? ETTA BAH ? Accession #: ? [id number] ? : ? 1940 (Age: 77) ??M [...] Organization Address City/State/ZIP Code Phon e Number [facility] [address] [place] [address] SERVICES documented in this encounter Visit Diagnoses Not on filedocumented in this encounter Care Teams Crawler Crane Operator Relationship Specialty Start Date End Date Abby Das MD PCP - General 07/06/[address] [place] [address] ,[address] [place] [address] documented as of this encounter
--- OUTSIDE RECORDS SUMMARY | 2022-06-23 03:56 | XMS_ITS | Encounter Summary ---
:1940 Author Organization [facility] Address [address] [place] [address] Care Team Providers Name Role Phone Bobby Das MD Primary Care Provider Reason for Visit Reason Comments Prostate Cancer Encounter Details Date Type Department Care Team Description 02/17/2018 Radiation Therapy [facility] Aries Gutierrez alignant neoplasm Visit Radiation Oncology Felix EAST [facility] [address] ([facility]) (Primary 111 [facility] Dx) [facility], [address] [place] [address] [address] [place] [address] Social History Tobacco Use Types Packs/Day Years Used Date Current Every Day Smoker Smokeless Tobacco: Never Used Sex Assigned at Date Recorded Not on file documented as of this encounter Progress Notes Delores Gutierrez III, MD - 02/17/2018 1111 EDT On Treatment Visit Assessment: Koko Zamora is currently receiving radiation therapy treatment and is being seen today for his weekly on treatment visit. The encounter diagnosis was Malignant neoplasm of prostate ([facility]). Assessment: Assessment Completed By: Felix Gutierrez MD (02/17/18 9589) Radiation Therapy: Cumulative RT Dose 3600 cGy Daily RT Dose 300 cGy Total RT Planned Dose 6000 cGy Chemotherapy Agent Lupron x 6 months Subjective Note: General: Had good relief of urinary symptoms with tamsulosin. Increased stool frequency today Numeric Pain Level (Scale 1-10): 0 Physical [...] Break/Deviation: No Plan: Plan: Continue per plan Plan Comment: Discussed use of Citrucel/Metamuci/oatmeal if bowels worsen Medication Changes: None Sj Gutierrez MD Radiation Oncology [phone] (office) [phone] (pager) documented in this encounter Plan of Treatment Not on filedocumented as of this encounter Visit Diagnoses Diagnosis Malignant neoplasm of prostate (HCC-CMS) (HCC) - Primary Malignant neoplasm of prostate documented in this encounter Care Teams Active Directory Specialist Relationship Specialty Start Date End Date Bobby Das MD PCP - General 07/06/[address] [place] [address] ,[address] [place] [address] documented as of this encounter
--- OUTSIDE RECORDS SUMMARY | 2022-06-23 03:56 | XMS_ITS | Encounter Summary ---
:1940 Author Organization [facility] Address [address] [place] [address] Care Team Providers Name Role Phone Bobby Das MD Primary Care Provider Reason for Visit Reason Onset Date Comments Medication Management 02/16/2018 Encounter Details Date Type Department Care Team Description 02/16/2018 Orders Only [facility] Radiation De Law jazz musician - [address] [phone] Social History Tobacco Use Types Packs/Day Years [...] filedocumented in this encounter Care Teams Electrical Automation Engineer Relationship Specialty Start Date End Date Bobby Das MD PCP - General 07/06/[address] [place] [address],[address] [place] [address] documented as of this encounter
--- OUTSIDE RECORDS SUMMARY | 2022-06-23 03:56 | XMS_ITS | Encounter Summary ---
:1940 Author Organization [facility] Address [address] [place] [address] Care Team Providers Name Role Phone Bobby Das MD Primary Care Provider Reason for Visit Reason Comments Follow-up Encounter Details Date Type Department Care Team Description 12/02/2017 Office Visit [facility] Erlin José MD Malignant neoplasm of Urology - [address] ([facility] ([facility]) (Primary 111 [facility] [place] [address] Pavilion, [place] [address] (Wo rk) Social History Tobacco [...] Progress Notes Chino José MD - 12/02/2017 0295 EST Chief Complaint: Chief Complaint Patient presents with ??? Follow-up HPI: Koko is a 77 y.o. male with prostate cancer. I originally saw the patient and [facility] and diagnosed him with [place] 3+4 prostate cancer associated with a PSA of 12.8. He underwent a bone scan for staging that came back negative for metastatic disease. He is seeing me today at [facility] for a Lupron injection. He started [...] ( desire to have sex ). Some longshore equipment operator hormonal therapy is associated with the [...] 12/02 documented in this encounter Care Teams Tie Tape Machine Operator Relationship Specialty Start Date End Date Bobby Das MD PCP - General 07/06/[address] [place] [address],[address] [place] [address] documented as of this encounter
--- OUTSIDE RECORDS SUMMARY | 2022-06-23 03:56 | XMS_ITS | Encounter Summary ---
:1940 Author Organization [facility] Address [address] [place] [address] Care Team Providers Name Role Phone Bobby Das MD Primary Care Provider Encounter Details Date Type Department Care Team Description 01/16/2018 Documentation Visit [facility] Santhosh Cosby Radiation Oncology - Main [address] [phone] Social History Tobacco Use Types Packs/Day Years Used Date Current Every Day Smoker Smokeless Tobacco: Never Used Sex Assigned at Date Recorded Not on file documented as of this encounter Progress Notes Santhosh Cosby - 01/16/2018 2402 EST SOCIAL WORK ASSESSMENT: Amount of Distress: 0 Practical Problems: None Family Problems: None Emotional Problems: None Physical Problems: None Spiritual/Christianity Concerns: No Other Problems: Social Work Assessment: [...] Prostate Cancer Living Arrangements: Pt lives in [place], [place] with his . They operate a [...] social work as needed. [place] [place] phone [phone] pager [phone] documented in this encounter Plan of Treatment Not on filedocumented as of this encounter Visit Diagnoses Not on filedocumented in this encounter Care Teams Photographer Aerial Relationship Specialty Start Date End Date Bobby Das MD PCP - General 07/06/[address] [place] [address],[address] [place] [phone] documented as of this encounter
--- OUTSIDE RECORDS SUMMARY | 2022-06-23 03:56 | XMS_ITS | Encounter Summary ---
:1940 Author Organization [facility] Address [address] [place] [address] Care Team Providers Name Role Phone Bobby Das MD Primary Care Provider Reason for Visit Reason Comments Prostate Cancer Encounter Details Date Type Department Care Team Description 02/10/2018 Radiation Therapy [facility] Aries Gutierrez alignant neoplasm Visit Radiation Oncology Felix EAST MD of [facility] - [address] ([facility]) (Primary 111 [facility] Dx) [facility], [address] [place] [address] [address] [place] [address] Social History Tobacco Use Types Packs/Day Years Used Date Current Every Day Smoker Smokeless Tobacco: Never Used Sex Assigned at Date Recorded Not on file documented as of this encounter Progress Notes Delores Gutierrez III, MD - 02/10/2018 1123 EDT On Treatment Visit Assessment: Koko Zamora is currently receiving radiation therapy treatment and is being seen today for his weekly on treatment visit. The encounter diagnosis was Malignant neoplasm of prostate ([facility]). Assessment: Assessment Completed By: Felix Gutierrez MD (02/10/18 4839) Radiation Therapy: Cumulative RT Dose 2400 cGy Daily RT Dose 300 cGy Total RT Planned Dose 6000 cGy Chemotherapy Agent Lupron 6 months Subjective Note: General: Bowels now OK on regular diet. Energy good, staying active. Urination a bit slow, nocturia x 2 Numeric Pain Level (Scale 1-10): 0 Physical Exam: General Appearance: Appears comfortable, no acute distress Treatment Related Toxicity: Fatigue: 0-None Diarrhea: 0-None Proctitis: 0-None Bladder Spasm: 0-None Cystitis: 0-None Incontinence: 0-None Urinary Frequency: 0-None Urinary Retention: 1- Urinary/suprapubic/intermitt catheter not indicated: able to void-some residual Weekly Review: Radiation Set-up Imaging Reviewed: Yes Impression: Performance Status: 0-Fully active, able to carry on all pre-disease performance without restriction Disease State: Stable Treatment Break/Deviation: No Plan: Plan: Continue per plan Medication Changes: None Sj Gutierrez MD Radiation Oncology [phone] (office) [phone] (pager) documented in this encounter Plan of Treatment Not on filedocumented as of this encounter Visit Diagnoses Diagnosis Malignant neoplasm of prostate (HCC-CMS) (HCC) - Primary Malignant neoplasm of prostate documented in this encounter Care Teams Network Professional Relationship Specialty Start Date End Date Bobby Das MD PCP - General 07/06/[address] [place] [address] ,[address] [place] [address] documented as of this encounter
--- OUTSIDE RECORDS SUMMARY | 2022-06-23 03:56 | XMS_ITS | Encounter Summary ---
:1940 Author Organization [facility] Address [address] [place] [address] Care Team Providers Name Role Phone Bobby Das MD Primary Care Provider Reason for Visit Reason Onset Date Comments Cancer 02/16/2018 Encounter Details Date Type Department Care Team Description 02/16/2018 Orders Only [facility] Isela Law Maligna nt neoplasm of prostate (HCC-CMS) (Primary Dx); Radiation Oncology - RN Andvamshi n deprivation therapy [address] [address] Social History Tobacco Use Types Packs/Day Years [...] g documented in this encounter Care Teams Flame Cutting Supervisor Relationship Specialty Start Date End Date Bobby Das MD PCP - General 07/06/[address] [place] [address] ,[address] [place] [phone] documented as of this encounter
--- OUTSIDE RECORDS SUMMARY | 2022-06-23 03:56 | XMS_ITS | Encounter Summary ---
:1940 Author Organization [facility] Address [address] [place] [address] Care Team Providers Name Role Phone Bobby Das MD Primary Care Provider Reason for Visit Reason Onset Date Comments Diagnostic Imaging Report 11/25/2017 Encounter Details Date Type Department Care Team Description 11/25/2017 Telephone [facility] Lynn Vargas RN Diagnostic Imaging Radiation Oncology - [address] [place] [address] Report [place], [place] [phone] [place] [address] Social History Tobacco Use Types Packs/Day Years [...] on filedocumented in this encounter Care Teams Watch Repair Person Relationship Specialty Start Date End Date Bobby Das MD PCP - General 07/06/[address] [place] [address] ,[address] [place] [address] documented as of this encounter
--- OUTSIDE RECORDS SUMMARY | 2022-06-23 03:56 | XMS_ITS | Encounter Summary ---
:1940 Author Organization [facility] Address [address] [place] [address] Care Team Providers Name Role Phone Bobby Das MD Primary Care Provider Reason for Visit Reason Comments Other Encounter Details Date Type Department Care Team Description 03/04/2019 Refill [facility] Radiation Adelfo Gutierrez ld Felix III, Other Oncology - [facility] [address] [place] [phone] [place] [address] [facility] [address] [place], [place] [address] (Wo rk) Social History [...] documented as of this encounter Care Teams Metal Extrusion Supervisor Relationship Specialty Start Date End Date Bobby Das MD PCP - General 07/06/[address] [place] [address],[address] [place] [address] documented as of this encounter
--- OUTSIDE RECORDS SUMMARY | 2022-06-23 03:56 | XMS_ITS | Encounter Summary ---
:[address] [facility] Address [address] [place] [address] Care Team Providers Name Role Phone Bobby Das MD Primary Care Provider Encounter Details Date Type Department Care Team Description 07/16/2019 Phlebotomy Only [facility] Loss Prevention Investigator, Eboni barbosa neoplasm - [facility] Outpatient of prostate [address] [facility] ([facility]) (Primary [place], [place] Dx) [address] Social History Tobacco Use [...] DIAGNOSTIC of prostate procedure are i n ([facility]) the results section. documented in this encounter Results PSA TOTAL, DIAGNOSTIC (07/16/2019 9:30 EDT) PSA 0.1 0 - 6.5 ng/ml [facility] Comment: LABORATORY SERVICES Serum PSA concentration should not be interpreted as absolute evidence for the presence or absence of malignant disease. Assayed utilizing Siemens (sciencebite) chemiluminescent technology. ??Values obtained by using different assay methods cannot be used interchangeably. Specimen Blood specimen (specimen) - Blood Performing Organization Address City/State/ZIP Code Phon e Number [facility] [address] [place] [address] SERVICES documented in this encounter Visit Diagnoses Diagnosis Malignant neoplasm of prostate ([facility]) (HCC) - Primary Malignant neoplasm of prostate documented in this encounter Orders Lab Orders Without Results Count Last Ordered Date st Ordered Date PSA TOTAL, DIAGNOSTIC 1 07/16/2019 documented in this encounter Care Teams Metal Fabricating Supervisor Relationship Specialty Start Date End Date Bobby Das MD PCP - General 07/06/[address] [place] [address],[address] [place] [address] documented as of this encounter
--- OUTSIDE RECORDS SUMMARY | 2022-06-23 03:56 | XMS_ITS | Encounter Summary ---
:1940 Author Organization [facility] Address [address] [place] [address] Care Team Providers Name Role Phone Bobby Das MD Primary Care Provider Encounter Details Date Type Department Care Team Description 01/08/2018 Procedure visit [facility] Aries Gutierrez Radiation Oncology - IIIMD [address] [address] [address], [place] [phone] (Wo rk) Social History Tobacco Use Types [...] Progress Notes Delores Gutierrez III, MD - 01/08/2018 1100 EST FIDUCIAL MARKER INSERTION PROCEDURE: Transrectal ultrasound-guided insertion of fiducial markers (Xmarks) into the prostate gland. DATE OF SERVICE: 01/08/2018 INDICATIONS: [id number], PSA 12.8 Winifred score 3+4 = 7 adenocarcinoma prostate NARRATIVE: Koko Zamora was brought to the procedure room, his name and date of were confirmed and a pre-procedure checklist completed. After signing appropriate written consent, he was placedin the lithotomy position on the treatment table. I then inserted 10 mL of lidocaine jelly into the rectum. I attached the stepper unit to the table. After approximately 5 minutes, I then gently inserted the transrectal ultrasound probe into the rectum and got good visualization of the prostate gland both in the axial and sagittal dimensions. The probe was attached to the stepper unit I then appropriately prepped the perineum and placed ink [place]in[place] on the skin at my 2 intended insertion sites. Then, utilizing 1% lidocaine, I developed areas of local anesthesia utilizing ultrasound guidance on sagittal imaging directly into the perineal skin, soft tissue and into the prostate gland, in both the right and lateral mid zones of the gland. After approximately 5 minutes, I then inserted the introducer needles first into the left side of the prostate gland and subsequently into the right side of the gland using real-time ultrasound guidance primarily with sagittal and some axial imaging to confirm their positions in the gland. After the appropriate locations were confirmed with ultrasound, I inserted the fiducial markers and removed the needles. I held pressure on the insertion sites for approximately 5 minutes and removed the transrectal ultrasound probe. Images from today's procedure are available in PACS. After he was able to spontaneously void he was discharged to home in stable condition. He will return next week for radiation treatment planning. Delores Gutierrez III, MD documented in this encounter Plan of Treatment Not on filedocumented as of this encounter Visit Diagnoses Not on filedocumented in this encounter Discontinued Medications Medication Sig Discontinue Reason Start Date End Date bicalutamide (CASODEX) Take 1 Tab by mouth Therapy completed 201701/08/2018 50 mg tablet daily. Don't start taking until instructed by Dr. Gutierrez documented as of this encounter Care Teams Gymnasium Teacher Relationship Specialty Start Date End Date Bobby Das MD PCP - General 07/06/[address] [place] [address] ,[address] [place] [address] documented as of this encounter
--- OUTSIDE RECORDS SUMMARY | 2022-06-23 03:56 | XMS_ITS | Encounter Summary ---
:1940 Author Organization [facility] Address [address] [place] [address] Care Team Providers Name Role Phone Bobby Das MD Primary Care Provider Reason for Visit Reason Comments Cancer Encounter Details Date Type Department Care Team Description 01/08/2018 Radiation Therapy [facility] Isela Law Ma lignant neoplasm of Visit Radiation Oncology - RN prostat e ([facility]) Main [place] ([facility]) (Primary [address] Dx) [place] [address] Social History Tobacco Use Types [...] and get free services/meds from afar. 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 ) Services: [place]: No Other: Subjective Note: General: Koko and his Ursula are here for the treatment teaching session post Fiducials being placed. 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 They are concerned that he might be [...] prostate documented in this encounter Care Teams Mold Making Supervisor Relationship Specialty Start Date End Date Bobby Das MD PCP - General 07/06/[address] [place] [address] ,[address] [place] [address] documented as of this encounter
--- OUTSIDE RECORDS SUMMARY | 2022-06-23 03:56 | XMS_ITS | Encounter Summary ---
:1940 Author Organization [facility] Address [address] [place] [address] Care Team Providers Name Role Phone Bobby Das MD Primary Care Provider Encounter Details Date Type Department Care Team Description 01/08/2019 Orders Only [facility] [place] Aries Gutierrez neoplasm of Radiation Oncology - Felix EAST MD prostate ([facility]) [address] (Primary Dx) [address] [place] [address] [facility] [phone] [facility] [address] [place] [address] (Wo rk) Social History Tobacco Use Types Packs/Day Years Used Date Current Every Day Smoker Smokeless Tobacco: Never Used Sex Assigned at Date Recorded Not on file documented as of this encounter Plan of Treatment Not on filedocumented as of this encounter Results PSA TOTAL, DIAGNOSTIC (07/16/2019 9:30 EDT) PSA 0.1 0 - 6.5 ng/ml [facility] Comment: LABORATORY SERVICES Serum PSA concentration should not be interpreted as absolute evidence for the presence or absence of malignant disease. Assayed utilizing Siemens (ZENTICKET) chemiluminescent technology. ??Values obtained by using different assay methods cannot be used interchangeably. Specimen Blood specimen (specimen) - Blood Performing Organization Address City/State/ZIP Code Phon e Number [facility] [address] [place] [address] SERVICES documented in this encounter Visit Diagnoses Diagnosis Malignant neoplasm of prostate ([facility]) (HCC) - Primary Malignant neoplasm of prostate documented in this encounter Care Teams Travel Med Surg Rn Relationship Specialty Start Date End Date Bobby Das MD PCP - General 07/06/[address] [place] [address],[address] [place] [phone] documented as of this encounter
--- OUTSIDE RECORDS SUMMARY | 2022-06-23 03:56 | XMS_ITS | Encounter Summary ---
:1940 Author Organization [facility] Address [address] [place] [address] Care Team Providers Name Role Phone Bobby Das MD Primary Care Provider Encounter Details Date Type Department Care Team Description 11/20/2017 Results Only [facility]- Unknown, PRISM ProviderMD [phone] Social History Tobacco Use Types Packs/Day Years [...] on filedocumented in this encounter Care Teams Block Saw Operator Relationship Specialty Start Date End Date Bobby Das MD PCP - General 07/06/[address] [place] [address],[address] [place] [phone] documented as of this encounter
--- OUTSIDE RECORDS SUMMARY | 2022-06-23 03:56 | XMS_ITS | Encounter Summary ---
:1940 Author Organization [facility] Address [address] [place] [address] Care Team Providers Name Role Phone Unknown, Provider Primary Care Provider Encounter Details Date Type Department Care Team Description 07/03/2015 Results Only [facility] Abby Das MD [phone] [place] [address],[address] [place], [place] [phone] (Wo rk) Social History Tobacco Use Types Packs/Day Years Used Date Never Assessed Sex Assigned at Date Recorded Not on file documented as of this encounter Plan of Treatment Not on filedocumented as of this encounter Procedures Procedure Name Priority Date/Time Associated Diagnosis [facility] SUR[facility]ICAL PATHOLOGY Routine 07/03/2015 8:54 EDT Re sults for this procedure are i n the results section. documented in this encounter Results SURGICAL PATHOLOGY (07/03/2015 8:54 EDT) Pathology Report: SURGICAL PATHOLOGY REPORT [facility] Reports generated via electronic interface contain abram ginal data; LABORATORY however they are lacking the format of the original re port. SERVICES Caution should be taken when reading/interpreting unfo rmatted reports. Name: ? ETTA BAH ? Accession #: ? [id number] ? : ? 1940 (Age: 74) ??M ? Collect Date: ? 07/03/2015 ? Location: ? [facility] ? Receive Date: ? 07/04/20 15 ? Provider: ABBY DAS MD Copy to: ? Final Pathologic Diagnosis: SKIN OF UATSDIN, RIGHT, EXCISION: - Basal cell carcinoma, infiltrative [...] the above diagnosi s. Specimen(s) Received: R taoism Clinical History: Basal cell carcinoma reexcision Gross [...] Organization Address City/State/ZIP Code Phon e Number [facility] [address] [place] [address] SERVICES documented in this encounter Visit Diagnoses Not on filedocumented in this encounter Care Teams Education Paraprofessional Relationship Specialty Start Date End Date Unknown, Provider, PCP - General 07/03/15 07/05/15 documented as of this encounter
--- OUTSIDE RECORDS SUMMARY | 2022-06-23 03:56 | XMS_ITS | Encounter Summary ---
:1940 Author Organization [facility] Address [address] [place] [address] Care Team Providers Name Role Phone Bobby Das MD Primary Care Provider Reason for Visit Reason Comments Prostate Cancer Follow up Encounter Details Date Type Department Care Team Description 07/16/2019 Office Visit [facility] Aries Gutierrez neoplasm of Radiation Oncology - Felix EAST MD prostate ([facility]) Main [address] (Primary Dx) [address] [place] [id number] [place] [address], [address] [phone] [facility] [address] [place] [address] (Wo rk) Social History Tobacco [...] DATE OF SERVICE: 07/16/2019 DIAGNOSIS AND STAGE: [id number], PSA 12.8 Winifred score 3+4 = 7 [...] this point. He is being evaluated at [facility] next week for possible tuboplasty. With respect [...] prepared with voice recognition software. Please excuse family and divorce legal assistant errors. documented in this encounter Plan of [...] ORAL) added in this encounter Care Teams Data Base Administrator Relationship Specialty Start Date End Date Bobby Das MD PCP - General 07/06/[address] [place] [address],[address] [place] [address] documented as of this encounter
--- OUTSIDE RECORDS SUMMARY | 2022-06-23 03:56 | XMS_ITS | Encounter Summary ---
:1940 Author Organization [facility] Address [address] [place] [address] Care Team Providers Name Role Phone Bobby Das MD Primary Care Provider Reason for Visit Reason Onset Date Comments Medication Management 11/21/2017 Encounter Details Date Type Department Care Team Description 11/21/2017 Orders Only [facility] Radiation De Law RN Oncology - [address] [phone] Social History Tobacco Use Types Packs/Day Years Used Date Current Every Day Smoker Smokeless Tobacco: Never Used Sex Assigned at Date Recorded Not on file documented as of this encounter Ordered Prescriptions Prescription Sig Dispensed Refills Start Date End Date ciprofloxacin HCl (CIPRO) Take 1 Tab by mouth 7 Tab 0 0 01/07/2018 02/03/2018 500 mg tablet 2 times daily. Start Cipro the night prior to your planned procedure. documented in this encounter Plan of Treatment Not on filedocumented as of this encounter Visit Diagnoses Not on filedocumented in this encounter Care Teams Instrument Shop Supervisor Relationship Specialty Start Date End Date Bobby Das MD PCP - General 07/06/[address] [place] [address] ,[address] [place] [phone] documented as of this encounter
--- OUTSIDE RECORDS SUMMARY | 2022-06-23 03:56 | XMS_ITS | Encounter Summary ---
:1940 Author Organization [facility] Address [address] [place] [address] Care Team Providers Name Role Phone Bobby Das MD Primary Care Provider Reason for Visit Reason Onset Date Comments Prostate Cancer 11/20/2017 Encounter Details Date Type Department Care Team Description 11/20/2017 Orders Only [facility] Center Aries Gutierrez Radiation Oncology - [facility], [address] [address] [address], [place], [place] [address] (Wo rk) Social History Tobacco Use Types [...] on filedocumented in this encounter Care Teams Real Estate Loan Processor Relationship Specialty Start Date End Date Bobby Das MD PCP - General 07/06/[address] [place] [address] ,[address] [place] [address] documented as of this encounter
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
[2022-06-23 06:59] LABS: HCT 23.6 % (40.0-50.0); HGB 7.3 g/dL (13.5-17.5); MCH 28.1 pg (27.0-33.0); MCHC 30.9 % (32.0-36.0); MCV 91 fL (80-95); MPV 10.3 fL (8.0-11.0); Platelet Count 170 10^3/uL (130-400); RDW 14.6 % (11.8-14.1); RDW-SD 48.6 fL; WBC 4.42 10^3/uL (4.4-10.8)
[2022-06-23] MEDS: Normal Saline Flush 10 ML SYR IVP (11:29)
--- NOTE | 2022-06-23 11:48 | SCONE_ITS ---
Date of service: 06/23/22 Time of Service: 11:49 Assessment and Plan Assessment and plan (1) Acute GI bleeding: Status: Acute Assessment and plan: Mr. Zamora is a pleasant 81 year old male with a complex Cardiac history on Xeralto and Plavix. He also has a history of unprovoked DVT's. Case was disc ussed with [facility] and [facility]. There are no beds available. I did discuss the case with anesthesia. They do not feel that he is a candidate for a procedure here due to him being only 5 weeks out from stent placement. He is stable at this time and [facility] again has refused to accept patient. Will attempt for patient to go do [facility] tomorrow for an EGD and then come back here as long as he has no complications. (2) ABLA (acute blood loss anemia): Status: Acute (3) CHF (congestive heart failure): Status: Chronic (4) CAD (coronary artery disease), [place] coronary artery: Status: Chronic (5) DVT (deep venous thrombosis): Status: Chronic (6) Chronic atrial fibrillation: Status: Chronic History of Present Illness Narrative: Mr. Zamora is a pleasant 81 year old male who was admitted last night for a GI bleed. The patient recently had a spontaneous left thigh DVT which required evacuation because of severe swelling of the left lower extremity with compartment syndrome also requiring decompression with bilateral incisions over his leg laterally and medially.? During his event which occurred after May 15, 2022 he was also found to have a non-STEMI with cardiac catheterization resulted in stenting patient placed on aspirin and Plavix.? He also manifested atrial fibrillation which was rate controlled with medical therapy.? He was on Xarelto for this problem.? He also was on Xarelto for his DVT.? He began having bright red blood per rectum late May on this medical therapy and at [facility] had? an upper endoscopy revealing AVM malformation just past the stomach which was cauterized and clipped.? He was taken off aspirin but remains on Plavix and Xarelto.? Yesterday the patient presented to the ED because he began to have bright red blood per rectum again. The only discomfort the patient had was some rumbling just prior to his large bloody bowel movement.? His hemoglobin did drop below 7 g/dL and he was being transfused with 1 unit of packed red blood cells.? He had no cardiovascular symptoms with his acute GI bleed.? He had no abdominal pain is stools were loose and voluminous with bright red blood and clots in the toilet.? He has had no active bleeding presently.? Patient did have mitral valve repair with valvuloplasty in November 2000 without sequela but then in April 2001 had an acute DVT in his right arm with severe swelling also requiring evacuation he has never had studies for hypercoagulability and was not on anticoagulation since 2000 until May of this year.? Patient has had 2 unprovoked events with significant DVTs requiring intervention.? He denies any family history of hypercoagulability.? Patient presently has no abdominal pain and has no shortness of breath or chest discomfort.? His current monitor does show atrial fibrillation which is at this time chronic with rate control.? He states that when he had his non-STEMI and new onset atrial fibrillation he was fairly asymptomatic.? Prior to recent events and May of this year the patient was only on a statin and Flomax for medical therapy.? He does have a history of CHF with his recent events. He was being transfused another unit when I saw him this morning Consults Consult date: 06/23/22 Requesting physician: Oscar Hirsch Review of Systems Constitutional Constitutional: Denies difficulty sleeping, Reports fatigue, Denies fever(s), Denies headache(s) and Denies weight loss Eyes Eyes: Denies change in vision ENT Ears, Nose, Mouth, and Throat: Denies headache(s) and Denies hoarseness Cardiovascular Cardiovascular: Denies chest pain, Denies chest pain at rest, Denies leg edema, Denies dyspnea and Denies dyspnea on exertion Respiratory Respiratory: Denies cough, Denies hemoptysis, Denies dyspnea and Denies dyspnea on exertion Gastrointestinal Gastrointestinal: Reports as per HPI Genitourinary Genitourinary: Reports system reviewed and no additional complaints, except as documented Musculoskeletal Musculoskeletal: Reports system reviewed and no additional complaints, except as documented Integumentary/Breasts Skin/Breast: Reports system reviewed and no additional complaints, except as documented Neurologic Neurologic: Denies headache(s) Psychiatric Psychiatric: Reports system reviewed and no additional complaints, except as documented Endocrine Endocrine: Reports fatigue PFSH All Active Problems CHF (congestive heart failure) (Chronic) CAD (coronary artery disease), [place] coronary artery (Chronic) DVT (deep venous thrombosis) (Chronic) Chronic atrial fibrillation (Chronic) Acute GI bleeding (Acute) ABLA (acute blood loss anemia) (Acute) Medical History Abnormal stool color Allergic rhinitis Aortic stenosis Cervical radiculopathy Elevated PSA Gastric ulcer with hemorrhage GERD (gastroesophageal reflux disease) Heart failure HLD (hyperlipidemia) Insufficiency of tear film of both eyes Malignant neoplasm of prostate Malignant neoplasm of skin Nicotine dependence Type 2 diabetes mellitus Surgical History H/O heart surgery History of tonsillectomy Family History Father Cancer Mother Cardiac pacemaker Diabetes Brother Hyperlipidemia Social History Smoking/Tobacco Use Status: Former Tobacco Use Quit Date: 05/10/22 Tobacco: How many years used: 62 Smoking risk assessment performed?: Yes Alcohol Intake: former Drug use: Never Substance use type: does not use Do you feel safe at home: Yes Do you feel safe in your relationship?: Yes Exam Const General: cooperative, comfortable, no acute distress and frail appearing HENMT Head: normocephalic and atraumatic Resp Effort & Inspection: normal respiratory effort Auscultation: clear to auscultation bilaterally Cardio Rate: regular rate Rhythm: abnormal rhythm Heart Sounds: no gallops, murmur and no rubs GI Palpation: soft, no hepatosplenomegaly and nontender Results Last Vital Signs Temp 97.9 F 06/23/22 11:30 Pulse 70 06/23/22 11:30 Resp 16 06/23/22 11:30 BP 109/55 L 06/23/22 11:30 Pulse Ox 95 06/23/22 11:30 Labs Result diagrams: 06/23/22 06:45 06/23/22 00:40 Labs: Laboratory Results - last 24 hr 06/23/22 06/23/22 06/23/22 00:40 00:40 00:40 WBC 4.92 RBC 2.45 L Hgb 6.9 L* Hct 22.5 L MCV 92 MCH 28.2 MCHC 30.7 L RDW 14.7 H Plt Count 186 MPV 10.2 Immature Gran % 0.4 Neutrophils % 58.0 Lymphocytes % 27.8 Monocytes % 10.8 Eosinophils % 2.4 Basophils % 0.6 Nucleated RBC % 0.0 Absolute Neutrophils 2.85 Absolute Lymphocytes 1.37 Absolute Monocytes 0.53 Absolute Eosinophils 0.12 Absolute Basophils 0.03 PT INR APTT Sodium 144 Potassium 4.1 Chloride 108 H Carbon Dioxide 27.7 Anion Gap 8.3 BUN 20 H Creatinine 0.7 Estimated GFR/1.73 m2 >= 60.00 Glucose 141 H Calcium 8.6 Total Bilirubin 0.5 AST 22 ALT 32 Alkaline Phosphatase 70 Total Protein 6.8 Albumin 3.4 COVID-19 Source Patient ABO/Rh O Positive Antibody Screen NEGATIVE Crossmatch See Detail 06/23/22 06/23/22 06/23/22 00:40 00:40 06:45 WBC 4.42 RBC 2.60 L Hgb 7.3 L Hct 23.6 L MCV 91 MCH 28.1 MCHC 30.9 L RDW 14.6 H Plt Count 170 MPV 10.3 Immature Gran % Neutrophils % Lymphocytes % Monocytes % Eosinophils % Basophils % Nucleated RBC % Absolute Neutrophils Absolute Lymphocytes Absolute Monocytes Absolute Eosinophils Absolute Basophils PT 12.1 H INR 1.2 H APTT 26.3 Sodium Potassium Chloride Carbon Dioxide Anion Gap BUN Creatinine Estimated GFR/1.73 m2 Glucose Calcium Total Bilirubin AST ALT Alkaline Phosphatase Total Protein Albumin COVID-19 Source Nasal/Nares Patient ABO/Rh Antibody Screen Crossmatch
--- NOTE | 2022-06-23 12:01 | PHACLINREV_ITS ---
Pharmacy Admission Review - Admission Clinical Review (Last Reviewed 06/23/22 @ 05:12 by Matt Prieto) Acute GI bleeding (Acute) ABLA (acute blood loss anemia) (Acute) aspirin Adverse Reaction (Unverified 06/23/22 00:18) GI Bleeding Resuscitation Status Full Code Height 5 ft 8 in Weight 76.8 kg - Renal Dosing Renal Dosing: BUN 20 mg/dL (7-18) H 06/23/22 00:40 Creatinine 0.7 mg/dL (0.70-1.30) 06/23/22 00:40 Medications needing adjustments: Reviewed List of meds needing interventions: eCrCl 65 ml/min, all orders ok - Anticoagulation Anticoagulation: Hgb 7.3 g/dL (13.5-17.5) L 06/23/22 06:45 Hct 23.6 % (40.0-50.0) L 06/23/22 06:45 Plt Count 170 10^3/uL (130-400) 06/23/22 06:45 INR 1.2 (0.9-1.1) H 06/23/22 00:40 Creatinine 0.7 mg/dL (0.70-1.30) 06/23/22 00:40 DVT Prophylaxis: N/A Therapeutic Anticoagulation: N/A - Opiate Usage Evaluate Pain Scale/Pains Meds: N/A - Relevant Labs Sodium 144 mmol/L (136-145) 06/23/22 00:40 Potassium 4.1 mmol/L (3.5-5.1) 06/23/22 00:40 Chloride 108 mmol/L (98-107) H 06/23/22 00:40 Electrolytes, C-Reactive P, ESR: Reviewed - DM Control DM Control: Glucose 141 mg/dL (74-106) H 06/23/22 00:40 Finger Stick Blood Glucose 127 Finger Stick Blood Glucose 127 Finger Stick Blood Glucose 124 Finger Stick Blood Glucose 124 Finger Stick Blood Glucose 124 Insulin Dosing: Reviewed (aspart per SS q6h (currently NPO)) - Heart Failure/[place] EF%, HOSSEIN's, B-Blockers, Diuretics: N/A - BP Control BP Control: Blood Pressure 109/55 Blood Pressure 96/58 Blood Pressure 88/61 Blood Pressure 91/54 Blood Pressure 88/61 Blood Pressure 90/60 Blood Pressure 132/67 Blood Pressure 144/58 Blood Pressure 133/56 Blood Pressure 116/56 Blood Pressure 116/43 Blood Pressure 92/46 Blood Pressure 104/46 Blood Pressure 91/50 Blood Pressure 103/45 Blood Pressure 106/50 Blood Pressure 113/78 If elevated: Reviewed (pressures are soft, holding off on valsartan for now -- recent addition from prev admission at [facility], hospitalist to review discharge records) - Qtc Review If Elevated: N/A - IV to PO Switch IV Medications: Reviewed - Home Meds Home Med List reviewed: Intervened Relevent Home Meds Not ordered & why?: added digoxin and valsartan (provider aware, not ordered yet, will FU), clopidogrel and xarelto held due to acute GI bleed - Current meds Current Medication Order Review: Reviewed
[2022-06-23] MEDS: Lactated Ringers 1,000 ML 80 ML IV ×2 (13:30→23:19)
[2022-06-23 14:08] LABS: HCT 27.2 % (40.0-50.0); HGB 8.7 g/dL (13.5-17.5)
--- NOTE | 2022-06-23 15:29 | INITIAL_ITS ---
- If Service Date Differs Date of service: 06/23/22 Time of Service: 15:30 Care Management Initial Assess REASON FOR HOSPITALIZATION:: Acute GI Bleed with blood loss anemia PAST MEDICAL HISTORY/PAST SURGICAL HISTORY:: This is a 81-year-old male patient who recently had a spontaneous left thigh DVT which required evacuation because of severe swelling of the left lower extremity with compartment syndrome also requiring decompression with bilateral incisions over his leg laterally and medially. During his event which occurred after May 15, 2022 he was also found to have a non-STEMI with cardiac catheterization resulted in stenting patient placed on aspirin and Plavix. He also manifested atrial fibrillation which was rate controlled with medical therapy. He was on Xarelto for this problem. He also was on Xarelto for his DVT. He began having bright red blood per rectum late May on this medical therapy and at [facility] had an upper endoscopy revealing AVM malformation just past the stomach which was cauterized and clipped. He was taken off aspirin but remains on Plavix and Xarelto. The day of presentation to the ED the patient began to have bright red blood per rectum again but was painless and reported to the ED for evaluation. The only discomfort the patient had was some rumbling just prior to his large bloody bowel movement. His hemoglobin did drop below 7 g/dL and he was being transfused with 1 unit of packed red blood cells. Medical History . Abnormal stool color. Allergic rhinitis. Aortic stenosis. Cervical radiculopathy. Elevated PSA. Gastric ulcer with hemorrhage. GERD (gastroesophageal reflux disease). Heart failure. HLD (hyperlipidemia). Insufficiency of tear film of both eyes. Malignant neoplasm of prostate. Malignant neoplasm of skin. Nicotine dependence. Type 2 diabetes mellitus. Surgical History . H/O heart surgery. History of tonsillectomy PREVIOUS FUNCTIONAL STATUS/SOCIAL/FAMILY SUPPORTS:: Resides in [place] with , Ursula. CURRENT FUNCTIONAL STATUS:: Koko is pleasant in interaction and forthcoming with information. He remains inpatient at this time, plan unclear per MD. Has patient been provided with info about the portal/API?: Yes Did the patient sign up for the portal?: No CODE STATUS:: Full Code INSURANCE COVERAGE / FINANCIAL ISSUES:: AARP. [employer] PRIMARY CARE PHYSICIAN:: Bobby Das POTENTIAL DISCHARGE NEEDS:: Down and back appointment at [facility] vs Tertiary transfer. PATIENT/FAMILY EDUCATION NEEDS:: Review discharge instructions, discuss Ask Me Three. ANTICIPATED BARRIERS TO DISCHARGE:: None identified. TRANSPORTATION:: TBD by disposition. PLAN:: Per MD, attempts being made for patient to go do [facility] tomorrow for a down and back appointment for EGD and return to [facility] as long as he has no complications. CM continues to follow.
[2022-06-23 15:30] LABS: COVID-19 PCR Negative (Negative)
[2022-06-23] MEDS: Pantoprazole 40 MG VIAL IVP (20:27)
[2022-06-23] MEDS: ROSUVASTATIN 20 MG TAB 40 MG PO (20:28)
[2022-06-24] VITALS (8 sets, daily range): BP systolic 95–109; BP diastolic 57–65; PULSE 71–92; RESP 16–20; TEMP 36.4–36.7; O2SAT 91–97
[2022-06-24 06:44] LABS: Abs Immature Grans 0.02 10^3/uL (0.0-0.06); Absolute Basophil Count 0.02 10^3/uL (0.0-0.2); Absolute Eosinophil Count 0.13 10^3/uL (0.0-0.7); Absolute Lymphocyte Count 1.54 10^3/uL (1.2-3.4); Absolute Monocyte Count 0.58 10^3/uL (0.1-0.8); Absolute Neutrophil Count 3.07 10^3/uL (1.2-6.7); Basophils % 0.4; Eosinophils % 2.4; HCT 26.8 % (40.0-50.0); HGB 8.6 g/dL (13.5-17.5); Immature Grans % 0.4; Lymphocytes % 28.7; MCH 28.2 pg (27.0-33.0); MCHC 32.1 % (32.0-36.0); MCV 88 fL (80-95); MPV 9.9 fL (8.0-11.0); Monocytes % 10.8; Neutrophils % 57.3; Platelet Count 183 10^3/uL (130-400); RBC 3.05 10^6/uL (4.36-5.78); RDW 14.9 % (11.8-14.1); RDW-SD 47.6 fL; WBC 5.36 10^3/uL (4.4-10.8)
[2022-06-24 07:02] LABS: ALT 25 U/L (16-63); AST 10 U/L (15-37); Alkaline Phosphatase 69 U/L (46-116); Anion Gap 9.2 mmol/L (3-11); BUN 10 mg/dL (7-18); Bilirubin, Total 1.2 mg/dL (0.2-1.0); CO2 25.8 mmol/L (21.0-32.0); CREATININE 0.7 mg/dL (0.70-1.30); Calcium 8.3 mg/dL (8.5-10.1); Chloride 109 mmol/L (98-107); Glucose 104 mg/dL (74-106); Potassium 3.5 mmol/L (3.5-5.1); Sodium 144 mmol/L (136-145); Total Protein 6.2 g/dL (6.4-8.2)
[2022-06-24] MEDS: Pantoprazole 40 MG VIAL IVP ×2 (08:11→20:17)
[2022-06-24] MEDS: Normal Saline Flush 10 ML SYR IVP ×2 (08:11→20:00)
[2022-06-24] MEDS: Tamsulosin 0.4 MG CAPCR PO (08:14)
[2022-06-24] MEDS: Sucralfate 1 GM TAB PO ×3 (08:14→22:15)
--- NOTE | 2022-06-24 10:09 | PGE_ITS ---
Date of Service Date of service: 06/24/22 Time of Service: 10:09 Assessment and Plan Assessment and plan (1) Chronic atrial fibrillation: Status: Chronic Assessment and plan: rate is less than optimal control. At rest his HR is in the 90's to low 100's but w/ activity it will go up to 150 bpm. I will titrate his lopressor as tolerated. Because of his recent left femoral artery thrombosis w/ leg ischemia, I will start on heparin until after his endoscopy and then restart his Xarelto afterwards. I will stop his heparin drip tomorrow moring in time for his endoscpy tomorrow afternoon. (2) Acute GI bleeding: Status: Acute Assessment and plan: continue protonix 40 mg IV bid. I will call Dr. August at [facility] tomorrow morning to confirm a time for his upper and lower endoscopy. (3) ABLA (acute blood loss anemia): Status: Acute Assessment and plan: continue to monitor hemogram at least twice daily particularly while he is on heparin and Plavix (4) CAD (coronary artery disease), [place] coronary artery: Status: Chronic Assessment and plan: recent PCI w/ AMPARO to his OM1 and angioplasty to his cx. I will resume Plavix today. (5) CHF (congestive heart failure): Status: Chronic Assessment and plan: not currently in acute CHF. He has ischemic cardiomyopathy w/ LVEF 28% Subjective Subjective Interval history since last seen: Koko has had no further hematochezia since admission. I have spoken w/ anesthesia here at [facility] and they do not feel comfortable having him undergo EGD and colonoscopy here at [facility]. I called [facility] transfer center and they do not have any bed availability for transfer but I spoke w/ Dr. August from GI who did offer a down and back for upper and lower endoscopy for tomorrow. I conveyed this to the patient and his and they are agreeble to this plan. We will put him on clear liquid diet for today, NPO after midnight and he will do the go lytely prep this afternoon and this evening. Exam Narrative Exam Narrative: Tung is sitting up in bed he is alert and oriented person place time circumstance no acute discomfort denies any abdominal pain nausea or vomiting denies any rectal bleeding this morning. Lungs are clear to auscultation anteriorly; some right posterior basilar rales; neck: no JVD Heart is irregularly irregular at less than optimally controlled rate Abdomen soft nontender nondistended normal bowel sounds Extremities without peripheral cyanosis or edema Objective Last Vital Signs Temp 36.7 C 06/24/22 07:17 Pulse 80 06/24/22 07:17 Resp 16 06/24/22 07:17 BP 99/65 L 06/24/22 07:17 Pulse Ox 94 06/24/22 07:17 Laboratory Results - last 24 hr 06/23/22 06/23/22 06/23/22 00:40 00:40 14:00 WBC RBC Hgb 8.7 L Hct 27.2 L MCV MCH MCHC RDW Plt Count MPV Immature Gran % Neutrophils % Lymphocytes % Monocytes % Eosinophils % Basophils % Nucleated RBC % Absolute Neutrophils Absolute Lymphocytes Absolute Monocytes Absolute Eosinophils Absolute Basophils Sodium Potassium Chloride Carbon Dioxide Anion Gap BUN Creatinine Estimated GFR/1.73 m2 Glucose Calcium Total Bilirubin AST ALT Alkaline Phosphatase Total Protein Albumin SARS-CoV-2 (PCR) Negative Crossmatch See Detail 06/24/22 06/24/22 06:20 06:20 WBC 5.36 RBC 3.05 L Hgb 8.6 L Hct 26.8 L MCV 88 MCH 28.2 MCHC 32.1 RDW 14.9 H Plt Count 183 MPV 9.9 Immature Gran % 0.4 Neutrophils % 57.3 Lymphocytes % 28.7 Monocytes % 10.8 Eosinophils % 2.4 Basophils % 0.4 Nucleated RBC % 0.0 Absolute Neutrophils 3.07 Absolute Lymphocytes 1.54 Absolute Monocytes 0.58 Absolute Eosinophils 0.13 Absolute Basophils 0.02 Sodium 144 Potassium 3.5 Chloride 109 H Carbon Dioxide 25.8 Anion Gap 9.2 BUN 10 Creatinine 0.7 Estimated GFR/1.73 m2 >= 60.00 Glucose 104 Calcium 8.3 L Total Bilirubin 1.2 H AST 10 L ALT 25 Alkaline Phosphatase 69 Total Protein 6.2 L Albumin 3.0 L SARS-CoV-2 (PCR) Crossmatch
--- NOTE | 2022-06-24 11:15 | CMPROGNOTE_ITS ---
- If Service Date Differs Date of service: 06/24/22 Time of Service: 11:15 Care Management Progress Note S/O: Koko remains inpatient, and pleasant in interaction. He will begin bowel prep today for planned EGD[place] [facility]. CM continues to follow. A: 81 year old male admitted to [facility] 06/23/22 for Acute GI Bleed with blood loss anemia. P: Per MD, attempts being made for patient to go do [facility] tomorrow for a wait and return, appointment for EGD/Colonoscopy. Bowel prep to start today, per MD. CM continues to follow.
--- NOTE | 2022-06-24 11:15 | PDOC.CMPRO ---
- If Service Date Differs Date of service: 06/24/22 Time of Service: 11:15 Care Management Progress Note S/O: Koko remains inpatient, and pleasant in interaction. He will begin bowel prep today for planned EGD/Colonoscopy tomorrow at [facility], per MD. CM continues to follow. A: 81 year old male admitted to [facility] 06/23/22 for Acute GI Bleed with blood loss anemia. P: Per MD, attempts being made for patient to go do [facility] tomorrow for a wait and return, appointment for EGD/Colonoscopy. Bowel prep to start today, per MD. CM continues to follow.
[2022-06-24] MEDS: Bisacodyl 10 MG SUPP PR (12:25)
--- NOTE | 2022-06-24 12:51 | W.NUTCONSULT ---
Date of service: 06/24/22 Time of Service: 12:51 Nutritional Consult ASSESSMENT: Koko is NPO today for upcoming EGD/Colonoscopy at [facility] [place] 06/25/22. PMH: acute GI bleed, CHF, CAD, DVT. Has lost 22 lbs (-13% weight loss). Unable to meet with Koko today, asleep at visit. Estimated Needs: 8907-1500 kcal, 85-90 g protein, 2280 ml fluid. Will need to supplement with ensure to meet nutrition needs on regular meal plan. NUTRITIONAL DIAGNOSIS: Significant weight loss in last 30 days of unclear causation. INTERVENTION: advance diet when able, will supplement trays with ensure and encourage PO Intake May benefit from appetite stimulant such as Marinol MONITORING AND EVALUATION: weight, po intake, labs Time Spent in Nutritional Counseling and Treatment: 0
[2022-06-24 14:21] LABS: PTT Activated 23.8 sec (21.0-27.5)
[2022-06-24] MEDS: Clopidogrel 75 MG TAB PO (14:50)
[2022-06-24] MEDS: ROSUVASTATIN 20 MG TAB 40 MG PO (20:15)
[2022-06-24 21:23] LABS: HCT 28.4 % (40.0-50.0); HGB 9.3 g/dL (13.5-17.5)
[2022-06-24 22:09] LABS: PTT Activated 127.6 sec (21.0-27.5)
[2022-06-25] VITALS (8 sets, daily range): BP systolic 91–129; BP diastolic 54–69; PULSE 80–102; RESP 16–17; TEMP 36.1–37.2; O2SAT 93–96
[2022-06-25 06:31] LABS: Abs Immature Grans 0.01 10^3/uL (0.0-0.06); Absolute Basophil Count 0.04 10^3/uL (0.0-0.2); Absolute Eosinophil Count 0.14 10^3/uL (0.0-0.7); Absolute Monocyte Count 0.79 10^3/uL (0.1-0.8); Basophils % 0.7; Eosinophils % 2.3; HCT 27.6 % (40.0-50.0); HGB 8.8 g/dL (13.5-17.5); Immature Grans % 0.2; Lymphocytes % 35.1; MCH 28.1 pg (27.0-33.0); MCHC 31.9 % (32.0-36.0); MCV 88 fL (80-95); MPV 10.1 fL (8.0-11.0); Monocytes % 13.2; Neutrophils % 48.5; Platelet Count 197 10^3/uL (130-400); RBC 3.13 10^6/uL (4.36-5.78); RDW-SD 47.5 fL; WBC 5.98 10^3/uL (4.4-10.8)
[2022-06-25 06:50] LABS: Diff Comment RBC Morph Reviewed; Macrocytosis 1+
[2022-06-25 07:17] LABS: PTT Activated 99.1 sec (21.0-27.5)
[2022-06-25] MEDS: Normal Saline Flush 10 ML SYR IVP (07:40)
[2022-06-25] MEDS: Pantoprazole 40 MG VIAL IVP (07:40)
[2022-06-25] MEDS: Sucralfate 1 GM TAB PO (07:43)
[2022-06-25] MEDS: Tamsulosin 0.4 MG CAPCR PO (07:43)
[2022-06-25] MEDS: Clopidogrel 75 MG TAB PO (07:57)
--- NOTE | 2022-06-25 08:14 | W.PM.PROGNOT ---
Date of Service Date of service: 06/25/22 Time of Service: 08:14 Assessment and Plan Assessment and plan (1) Acute GI bleeding: Status: Acute Assessment and plan: continue protonix 40 mg IV bid along with Carafate. Plans for down and back trip to [facility] endoscopy suite for an EGD and colonoscopy. Professional time spent interviewing and examining patient, discussion of goals of care with hospital team (care management, nursing and consulting professionals) was 30 minutes. (2) ABLA (acute blood loss anemia): Status: Acute Assessment and plan: Continue monitoring hemogram twice a day. Await results of endoscopy. Heparin drip discontinued this morning. Hemoglobin stable posttransfusion of 2 units of packed red cells. Current hemoglobin 8.8 g. (3) Chronic atrial fibrillation: Status: Chronic Assessment and plan: rate is less than optimal control. At rest his HR is in the 90's to low 100's but w/ activity it will go up to 137 bpm. Metoprolol held this morning due to soft blood pressures with soft systolic pressure of 100 and diastolic pressure in the 50s. Patient encouraged to take his digoxin. (4) CAD (coronary artery disease), [place] coronary artery: Status: Chronic Assessment and plan: recent PCI w/ AMPARO to his OM1 and angioplasty to his cx. Continue Plavix. Once source of GI bleeding is determined and controlled we will resume his Xarelto. (5) CHF (congestive heart failure): Status: Chronic Assessment and plan: not currently in acute CHF. He has ischemic cardiomyopathy w/ LVEF 28% Subjective Subjective Interval history since last seen: Patient denies any abdominal pain nausea or vomiting. He said he did have some bright red rectal bleeding last night as he strained to complete his bowel movements after finishing off his bowel prep. He is just look like clear liquid BM with bright red blood. Patient is supposed to go to [facility] today for upper and lower endoscopy by Dr. August. Hemoglobin overnight remained stable at 8.8 after being transfused 2 units of packed red cells. He remains in atrial fibrillation with variable rate control. At rest heart rates in the 70s to 90s but with activity he will get up to 134. Metoprolol had to be held because his blood pressure last night. He did receive his Plavix yesterday and today and he was on a heparin drip overnight which was stopped this morning at 7 AM. Exam Narrative Exam Narrative: Elderly male lying in bed no acute distress alert and oriented first place time circumstance Lungs are clear to auscultation Heart is irregularly irregular at a controlled rate with a harsh systolic murmur over the aortic outflow tract grade 3/6 and holosystolic murmur over the apex consistent with MR. Abdomen soft nondistended nontender normal bowel sounds Lower extremities without peripheral cyanosis edema. Left leg has scars from previous femoral artery thrombectomy. Scars are healing well over the groin as well as the lower leg. No drainage no erythema. Objective Last Vital Signs Temp 36.8 C 06/25/22 07:49 Pulse 92 H 06/25/22 07:58 Resp 16 06/25/22 07:58 BP 100/54 L 06/25/22 07:58 Pulse Ox 93 06/25/22 07:58 Laboratory Results - last 24 hr 06/24/22 06/24/22 06/24/22 14:02 21:12 21:12 WBC RBC Hgb 9.3 L Hct 28.4 L MCV MCH MCHC RDW Plt Count MPV Immature Gran % Neutrophils % Lymphocytes % Monocytes % Eosinophils % Basophils % Nucleated RBC % Absolute Neutrophils Absolute Lymphocytes Absolute Monocytes Absolute Eosinophils Absolute Basophils RBC Morphology Macrocytosis APTT 23.8 127.6 H* 06/25/22 06/25/22 06/25/22 05:15 06:25 06:25 WBC 5.98 RBC 3.13 L Hgb 8.8 L Hct 27.6 L MCV 88 MCH 28.1 MCHC 31.9 L RDW 15.0 H Plt Count 197 MPV 10.1 Immature Gran % 0.2 Neutrophils % 48.5 Lymphocytes % 35.1 Monocytes % 13.2 Eosinophils % 2.3 Basophils % 0.7 Nucleated RBC % 0.0 Absolute Neutrophils 2.90 Absolute Lymphocytes 2.10 Absolute Monocytes 0.79 Absolute Eosinophils 0.14 Absolute Basophils 0.04 RBC Morphology See Below Macrocytosis 1+ APTT Cancelled 99.1 H*
[2022-06-25] MEDS: Digoxin 0.125 MG TAB PO (08:22)
--- NOTE | 2022-06-25 14:36 | CHAPLAIN ---
Koko was resting in bed when I visited this afternoon. He explained that he returned a short time ago from [facility] [place] gone for a EDG and colonoscopy. He told me that he is being well taken care of by the nursing staff.
--- NOTE | 2022-06-25 16:08 | PDOC.CMDIS ---
- If Service Date Differs Date of service: 06/25/22 Time of Service: 16:08 LACE Index Scoring Tool - Questions: Length of Stay (in days): 2 Acuity (Admit via E.D.?): Yes Comorbidities: Diabetes w/o Complication, Congestive Heart Failure, Metastatic Solid Tumor E.D. Visits: 2 - Answers: Total Score: 12 Risk of Readmission: High Risk Care Management Discharge Reason for Hospitalization: Acute GI Bleed with blood loss anemia Discharge Plan: Koko is discharged home via private vehicle with . New RX submitted to [facility]. Repeat CBC Lab is recommended in 3 days. Recommend Koko call his PCP to make an appointment in the next 2 weeks. Koko will follow up with community providers and discharge plan of care as prescribed. Patient/Family Education Needs: Review discharge instructions, limitations, medications and plan to follow up with community providers. ask me three.
--- NOTE | 2022-06-25 16:09 | DSE_ITS ---
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 This occurred May 15, 2022 and during that admission to the [facility] [place] he sustained an NSTEMI underwent cardiac catheterization and had a drug-eluting stent to his obtuse marginal 1 and angioplasty to his cir cumflex. He was found to have HFrEF with an EF of 28%. He was placed on aspirin and Plavix in addition to his Xarelto. He was discharged home in 10 days later readmitted for upper GI bleeding which she was found to have a couple of ectatic blood vessels in his duodenum 1 of which was bleeding and was cauterized. His current hospitalization at [facility] occurred June 23, 2022 after he had a couple episodes of bright red rectal bleeding. He had no associated chest pain or dyspnea and no abdominal pain. He was found to be anemic with a hemoglobin of 6.9 g hematocrit 22%. He was typed and crossmatched and transfused 2 units of packed red cells. He is hemoglobin came up to 9.3 g and hematocrit 28.4%. Phone consultation was obtained with Dr. August, conference interpreter from [facility] who agreed to take the patient for down and back upper and lower endoscopy as [facility] had no beds available for an acute medical transfer. Our [facility] team [facility] did not feel comfortable sedating him for upper and lower endoscopy at [facility] due to his recent coronary stenting. Patient underwent bowel prep on 06/24/2022. During his hospitalization [facility] his Plavix and Xarelto were initially held. Aspirin had previously been discontinued by cardiology at [facility] during his admission there for his upper GI bleed. Upon my assuming care of the patient I resumed his Plavix out of concern that the patient may have an acute thrombosis of his coronary stent. Because he had significant left limb ischemia last month associated with thrombosis of his femoral artery I put him on a heparin drip as a bridge while he was off his Xarelto. Heparin drip was stopped on the morning of 06/25/2022 to allow for gastroenterology services to perform their endoscopy. Patient was transferred to [facility] for the procedure which was performed by Dr. Giovani Ponce. Please see their notes for details of the endoscopy studies. In summary the EGD showed a normal esophagus and stomach and he had a single nonbleeding angiectasia of the duodenum which was treated with argon beam coagulation and he had 4 nonbleeding angioectasias in the proximal jejunum also treated with argon beam coagulation. Colonoscopy showed 2 small polyps in the sigmoid colon and in the transverse colon. Resection was not attempted due to recent antiplatelet use. 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 The examined portion of the ileum was normal. Follow-up will be arranged by [facility] gastroenterology services for GI follow-up as the patient will need a repeat colonoscopy for removal of the colon polyps. Upon return to [facility] the patient was feeling well with stable vital signs with no abdominal complaints and was desiring to return home. He will be discharged home with a follow-up CBC in 3 days. He is to see his primary care provider in the next week and follow-up with [facility] gastroenterology per their recommendations. Patient was informed that [facility] will notify the patient of his follow-up appointment. Patient is being discharged home on Sucralfate 1 g before meals and at bedtime and Protonix 40 mg daily. (2) ABLA (acute blood loss anemia): Status: Acute (3) Chronic atrial fibrillation: Status: Chronic (4) CAD (coronary artery disease), [place] coronary artery: Status: Chronic (5) CHF (congestive heart failure): Status: Chronic Discharge Plan Disposition Patient Disposition: HOME Condition: Improving Discharge Details Reason For Visit: Acute GI Bleed with Blood Loss Anemia Admit Date/Time: 06/23/22 03:00 Admit Provider: Matt Prieto Attending Provider: Matt Prieto Primary Care Provider: Bobby Das Home Meds and New Rx's Prescriptions: New sucralfate 1 gram Tablet 1 g PO AC & HS Qty: 120 0RF Continued fluticasone propionate 50 mcg/actuation spray,suspension 1 spray intranasal BID Rx Instructions: administer into each nostril mupirocin 2 % ointment 1 applic topical TID acetaminophen 325 mg capsule 650 mg PO Q6H PRN clopidogrel [Plavix] 75 mg tablet 75 mg PO DAILY Farxiga 5 mg tablet 5 mg PO DAILY pantoprazole 40 mg tablet,delayed release (DR/EC) 40 mg PO DAILY Xarelto 20 mg tablet 20 mg PO DAILY Rx Instructions: must administer with evening meal tamsulosin 0.4 mg capsule 1 cap PO 1XD Label Comments: TAKE ONE CAPSULE BY MOUTH AT BEDTIME rosuvastatin 40 mg tablet 1 tab PO 1XD Label Comments: TAKE ONE TABLET BY MOUTH EVERY DAY multivitamin Tablet 1 tab PO DAILY calcium citrate 200 mg (950 mg) Tablet 200 mg PO DAILY carboxymethylcellulose sodium [Refresh Plus] 0.5 % Dropperette 3 drp ophthalmic (eye) TID PRN digoxin 125 mcg (0.125 mg) tablet 125 mcg PO DAILY Label Comments: TAKE ONE TABLET BY MOUTH EVERY DAY Changed metoprolol succinate 50 mg tablet extended release 24 hr 25 mg PO BID Qty: 0 0RF valsartan 40 mg tablet 20 mg PO BID Qty: 1 0RF Label Comments: TAKE ONE TABLET BY MOUTH TWICE A DAY Rx Instructions: take half tablet by mouth twice a day Discontinued ascorbate calcium (vitamin C) 500 mg tablet 500 mg PO DAILY sildenafil 100 mg tablet 100 mg PO DAILY PRN Rx Instructions: administer 30 minutes to 4 hours before activity Discharge Instructions Instructions: Gastrointestinal Bleeding (DC), Colorectal Polyps (DC) Activity:: Activity as Tolerated Equipment/Supplies:: No Equipment Needed Diet:: Carb Counting Discharge Orders Discharge Orders: Discharge Order (Routine); Ordered 06/25/22 Ordered By: Christopher Roberts Other Ambulatory Orders: Complete Blood Count w/Diff (Routine) Timeframe: 3 Days Facility: [facility] - Location: Laboratory Outpatient - [facility] Ordered By: Christopher Roberts DS: Summary Time Spent with Patient providing and/or coordinating discharge services: Greater than 30 minutes Specific discharge activities: Interview/exam of patient; review of discharge instructions, completion of prescriptions/discharge instructions; discussion w/ nursing and CM; documentation of hospital visit Status at Discharge Functional status at discharge: independent ambulation Overall status at discharge: patient is progressing back to baseline Mental Status: mental status grossly normal Speech and Movement: speech and movement normal Mood: congruent mood Affect: normal affect Exam Narrative Exam Narrative: Elderly male lying in bed no acute distress alert and oriented first place time circumstance Lungs are clear to auscultation Heart is irregularly irregular at a controlled rate with a harsh systolic murmur over the aortic outflow tract grade 3/6 and holosystolic murmur over the apex consistent with MR. Abdomen soft nondistended nontender normal bowel sounds Lower extremities without peripheral cyanosis edema. Left leg has scars from previous femoral artery thrombectomy. Scars are healing well over the groin as well as the lower leg. No drainage no erythema. Psych Mental Status: mental status grossly normal Speech and Movement: speech and movement normal Mood: congruent mood Affect: normal affect DS: Data Vitals/I&O Vitals and I&O: Vital Signs Temperature 36.1 C L 06/25/22 15:15 Temperature Source Tympanic 06/25/22 15:15 Pulse 80 06/25/22 15:42 Pulse Rhythm Irregular 06/25/22 08:32 Pulse 87 06/23/22 02:31 Respiratory Rate 16 06/25/22 15:15 Respiratory Effort 06/25/22 08:32 Respiratory Depth Normal 06/25/22 08:32 Respiratory Pattern Normal 06/25/22 08:32 Blood Pressure 129/55 L 06/25/22 15:15 Blood Pressure Mean 58 06/23/22 02:31 Pulse Oximetry 94 06/25/22 15:15 Oxygen Delivery Method Room Air 06/25/22 15:15 Oxygen Flow Rate 0 06/25/22 15:15 Pain Level 0 06/25/22 15:15 Comment 06/24/22 03:20 Intake & Output 06/24/22 06/25/22 06/25/22 23:59 11:59 23:59 Intake Total 673.6 / 1673.6 60 / 60 Output Total 1225 / 2075 500 / 500 Balance -551.4 / -401.4 -440 / -440 Weight 76.1 kg Intake: IV 103.6 / 1103.6 Oral 570 / 570 60 / 60 Output: Urine 575 / 1425 500 / 500 Stool 650 / 650 Other: Urine Color Yellow Yellow Urine Appearance Clear Clear Comment pT voided and used urinal independently. Stool Size Moderate Stool Characteristics Liquid Green Voiding Methods Urinal Urinal Data Completed and Pending Labs on day of discharge: Labs from last 24 hours 06/25/22 06/25/22 06/25/22 06:25 06:25 05:15 WBC 5.98 RBC 3.13 L Hgb 8.8 L Hct 27.6 L MCV 88 MCH 28.1 MCHC 31.9 L RDW 15.0 H Plt Count 197 MPV 10.1 Immature Gran % 0.2 Neutrophils % 48.5 Lymphocytes % 35.1 Monocytes % 13.2 Eosinophils % 2.3 Basophils % 0.7 Nucleated RBC % 0.0 Absolute Neutrophils 2.90 Absolute Lymphocytes 2.10 Absolute Monocytes 0.79 Absolute Eosinophils 0.14 Absolute Basophils 0.04 RBC Morphology See Below Macrocytosis 1+ APTT 99.1 H* Cancelled 06/24/22 06/24/22 21:12 21:12 WBC RBC Hgb 9.3 L Hct 28.4 L MCV MCH MCHC RDW Plt Count MPV Immature Gran % Neutrophils % Lymphocytes % Monocytes % Eosinophils % Basophils % Nucleated RBC % Absolute Neutrophils Absolute Lymphocytes Absolute Monocytes Absolute Eosinophils Absolute Basophils RBC Morphology Macrocytosis APTT 127.6 H* PFSH All Active Problems CHF (congestive heart failure) (Chronic) CAD (coronary artery disease), [place] coronary artery (Chronic) DVT (deep venous thrombosis) (Chronic) Chronic atrial fibrillation (Chronic) Acute GI bleeding (Acute) ABLA (acute blood loss anemia) (Acute) Medical History Abnormal stool color Allergic rhinitis Aortic stenosis Cervical radiculopathy Elevated PSA Gastric ulcer with hemorrhage GERD (gastroesophageal reflux disease) Heart failure HLD (hyperlipidemia) Insufficiency of tear film of both eyes Malignant neoplasm of prostate Malignant neoplasm of skin Nicotine dependence Type 2 diabetes mellitus Surgical History H/O heart surgery History of tonsillectomy Family History Father Cancer Mother Cardiac pacemaker Diabetes Brother Hyperlipidemia Social History Smoking/Tobacco Use Status: Former Tobacco Use Quit Date: 05/10/22 Tobacco: How many years used: 62 Smoking risk assessment performed?: Yes Alcohol Intake: former Drug use: Never Substance use type: does not use Do you feel safe at home: Yes Do you feel safe in your relationship?: Yes
== END 2022-06-25 16:54 | disposition home or self-care (01) | DRG 378 ==
LOC: ER 03:41 → MS 03:46
PROVIDERS: Family Medicine; Internal Medicine; Admitting Provider Family Medicine; Emergency Provider Student in an Organized Health Care Education/Training Program; PCP Family Medicine; Visit Provider Family Medicine
DX: K55.21 Angiodysplasia of colon with hemorrhage (principal); D62 Acute posthemorrhagic anemia; I48.20 Chronic atrial fibrillation, unspecified; I50.20 Unspecified systolic (congestive) heart failure; Z79.01 Long term (current) use of anticoagulants; I25.10 Atherosclerotic heart disease of native coronary artery without angina pectoris; I25.2 Old myocardial infarction; Z86.718 Personal history of other venous thrombosis and embolism; K21.9 Gastro-esophageal reflux disease without esophagitis; E78.5 Hyperlipidemia, unspecified; F17.210 Nicotine dependence, cigarettes, uncomplicated; E11.9 Type 2 diabetes mellitus without complications; C61 Malignant neoplasm of prostate; M54.12 Radiculopathy, cervical region; Z95.5 Presence of coronary angioplasty implant and graft; I25.5 Ischemic cardiomyopathy; K63.5 Polyp of colon
CPT/HCPCS: 36415; 80053; 85027; 86850; 86900; 86901; 86920; 87635; 96361; 96365; 96366; 96367; 99222; 99285; 85014; 85018; 85025; 85610; 85730; 99223; 99232; 99239; A0425; A0428; P9016

== ENCOUNTER 2022-07-10 09:32 | Outpatient (RCR) | payer MEDICARE, SELFPAY ==
--- OUTSIDE RECORDS SUMMARY | 2022-06-28 11:05 | XMS_ITS | Encounter Summary ---
:1940 Author Organization [place] [address] Care Team Providers Name Role Phone Bobby Das MD Primary Care Provider Reason for Referral Consultation (Routine) - Authorized Specialty Diagnoses / Procedures Referred By Contact Refer red To Contact Gastroenterology Diagnoses Adenomatous polyp of colon, unspecified part of colon Colonoscopy 06/25/22, discussed w/Dr. Ponce needs to be seen in clinic to discuss polyp / removal iso plavix & DOAC Isi Celaya MD [facility] [place] [address] [place] [address] Phone: Fax: Referral ID Status Reason Start Date Expiration Visits Visits Date Requested Authorized [id number] Authorized Consult, 06/25/2022 06/25/2023 1 1 Test & Treat Scheduling Instructions To be seen in ~2mo Encounter Details Date Type Department Care Team Description 06/25/2022 Orders Only Gastroenterology at [facility] Isi Celaya Adenomatous polyp of [facility] Bobby [place], [place] [address] [facility] part of colon [phone] [facility] [address] Social History Tobacco Use Types Packs/Day Years Used Date Former Smoker Cigarettes 0.5 50 Quit: 05/15/20 22 Smokeless Tobacco: Never Used Alcohol Use Standard Drinks/Week Comments Yes 44 (1 standard drink = 0.6 oz pure alcoh ol) Last alcohol use in May 2022 Alcohol Habits Answer Date Recorded How often do you have a drink containing Not asked alcohol? How many drinks containing alcohol do you Not asked have on a typical day when you are drinking? How often do you have six or more drinks Not asked on one occasion? Comment: Last alcohol use in May 2022 06/25/2022 Sex Assigned at Date Recorded Not on file documented as of this encounter Plan of Treatment Upcoming Encounters Date Type Specialty Care Team Description 07/02/2022 Office Visit Vascular Surgery Jing Ghosh APRN [facility] ER VASCULAR SURGERY [place], [place] [address] (Wo rk) 09/02/2022 Clinical Support Dermatology Thai Lynn MD [facility] DR [address] [place], [place] [address] (Wo rk) 09/02/2022 Procedure visit Dermatology Jace Lynn MD [facility] DR [address] [place], [place] [address] (Wo rk) 09/05/2022 Appointment Cardiology Trinity Reid MD [facility] CARDIOLOGY [place], [place] [address] (Wo rk) 09/05/2022 Office Visit Cardiology Trinity Reid MD [facility] CARDIOLOGY [place], [place] [address] (Wo rk) Scheduled Referrals Name Type Priority Associated Order Schedule Diagnoses Referral to Outpatient Routine Adenomatous polyp Ordered: Gastroenterology Referral of colon, 06/25/2022 unspecified part of colon documented as of this encounter Visit Diagnoses Diagnosis Adenomatous polyp of colon, unspecified part of colon documented in this encounter Care Teams Developmental Training Counselor Relationship Specialty Start Date End Date Bobby Das MD PCP - General 10/02/[address] [place] [address] [place] [id number] documented as of this encounter
--- OUTSIDE RECORDS SUMMARY | 2022-06-28 11:05 | XMS_ITS | Encounter Summary ---
:1940 Author Organization [facility] [place] [address] Care Team Providers Name Role Phone Bobby Das MD Primary Care Provider Encounter Details Date Type Department Care Team Description 06/25/2022 Hospital En[place] [facility] [place]once, [facility] [place] [address] [facility] [phone] [place] [address] Social History Tobacco Use Types Packs/Day [...] Sign Reading Time Taken Comments Blood Pressure 91/50 06/25/2022 12:05 PM EDT Pulse 91 06/25/2022 10:42 AM EDT Temperature - - Respiratory Rate 06/25/2022 12:20 PM EDT Oxygen Saturation 94% 06/25/2022 10:42 AM EDT Inhaled Oxygen Concentration - - Weight 75.8 kg (167 lb) 06/25/2022 10:42 AM EDT Height 172.7 cm (5' 8) 06/25/2022 10:42 AM EDT Body Mass Index 25.39 06/25/2022 10:42 AM EDT documented in this encounter Discharge Instructions Discharge InstructionsJuice Alvarado RN - 06/25/2022 12:06 PM EDT Upper GI Endoscopy: What to Expect at Home Your Recovery You will be able to go home after your doctor or nurse checks to make sure you are not having any problems. You may have to stay overnight if you had treatment during the test. You may have a sore throat for a day or two after the test. This care sheet gives you a general idea about what to expect after the test. How can you care for yourself at home? Activity Rest when you feel tired. You can do your normal activities when it feels okay to do so. Diet Follow your doctor's directions for eating. Unless your doctor has told you not to, drink plenty of fluids. This helps to replace the fluids that were lost during the prep. Do not drink alcohol. Medicines Your doctor will tell you if and when you can restart your medicines. He or she will also give you instructions about taking any new medicines. If you take blood thinners, such as warfarin (Coumadin), clopidogrel (Plavix), or aspirin, be sure to talk to your doctor. He or she will tell you if and when to start taking those medicines again. Make sure that you understand exactly what your doctor wants you to do. If polyps were removed or a biopsy was done during the test, your doctor may tell you not to take aspirin or other anti-inflammatory medicines for a few days. These include ibuprofen (Advil, Motrin) and naproxen (Aleve). If you have a sore throat the day after the procedure, use an txxk-moj-qypsbzh spray to numb your throat. Sucking on throat lozenges and gargling with warm salt water may also help relieve your symptoms. Other instructions For your safety, do not drive or operate machinery until the medicine wears off and you can think clearly. Your doctor may tell you not to drive or operate machinery until the day after your test. Do not sign legal documents or make major decisions until the medicine wears off and you can think clearly. The anesthesia can make it hard for you to fully understand what you are agreeing to. Additional Information for Sedation Patients For patients who received sedation: You may have received medications before and/or during your procedure which effects your judgement and reaction time. Do not drive, operate machinery, drink alcoholic beverages or make important decisions for 24 hours. Be careful on stairs as you may be unsteady on your feet. You may eat a regular diet as tolerated. Do not smoke if you are alone. IV site: Slight redness or tenderness is normal, you can use a warm compress if you would like. If tenderness and/or redness increase or if foul drainage occurs, please contact your Doctor. Please call [phone] before 8pm Mon-Fri with problems, questions or concerns. If you call after 8pm or on weekends, call the Hospital at [phone] and ask to speak to the Car Dealer irrigation laborer and the hydroelectric operator will contact that person for you. When should you call for help? Call 1 anytime you think you may need emergency care. For example, call if: You passed out (lost consciousness). You pass maroon or bloody stools. You have trouble breathing. Call your doctor now or seek immediate medical care if: You have pain that does not get better after you take pain medicine. You are sick to your stomach or cannot drink fluids. You have new or worse belly pain. You have blood in your stools. You have a fever. You cannot pass stools or gas. Watch closely for changes in your health, and be sure to contact your doctor if you have any problems. Where can you learn more? [facility] View your After Visit Summary and more online at [email or web address] If you would like to provide feedback about your hospital experience, please call the Office of Patient and Family Relations at . If you have received this After Visit Summary in error, please immediately return it in person to the department, or notify the [facility] Privacy Office by calling toll free at between the hours of 8AM and 5PM to arrange for our retrieval of the documents at no cost to you. Content Version: 12.2 ?? 5084-6120 [employer]. Care instructions adapted under license by [facility]. If you have questions about a medical condition or this instruction, always ask your healthcare professional. [employer] disclaims any warranty or liability for your use of this information. Colonoscopy: What to Expect at Home Your Recovery Your doctor will talk to you about when you will need your next colonoscopy. Your doctor can help you decide how often you need to be checked. This will depend on the results of your test and your riskfor colorectal cancer. After the test, you may be bloated or have gas pains. You may need to pass gas. If a biopsy was doneor a polyp was removed, you may have streaks of blood in your stool (feces) for a few days. Problemssuch as heavy rectal bleeding may not occur until several weeks after the test. This isn't common. But it can happen after polyps are removed. This care sheet gives you a general idea about how long it will take for you to recover. But each person recovers at a different pace. Follow the steps below to get better as quickly as possible. How can you care for yourself at home? Activity Rest when you feel tired. You can do your normal activities when it feels okay to do so. Diet Follow your doctor's directions for eating. Unless your doctor has told you not to, drink plenty of fluids. This helps to replace the fluids that were lost during the colon prep. Do not drink alcohol. Medicines Your doctor will tell you if and when you can restart your medicines. He or she will also give you instructions about taking any new medicines. If you take blood thinners, such as warfarin (Coumadin), clopidogrel (Plavix), or aspirin, be sure to talk to your doctor. He or she will tell you if and when to start taking those medicines again. Make sure that you understand exactly what your doctor wants you to do. If polyps were removed or a biopsy was done during the test, your doctor may tell you not to take aspirin or other anti-inflammatory medicines for a few days. These include ibuprofen (Advil, Motrin) and naproxen (Aleve). Other instructions For your safety, do not drive or operate machinery until the medicine wears off and you can think clearly. Your doctor may tell you not to drive or operate machinery until the day after your test. Do not sign legal documents or make major decisions until the medicine wears off and you can think clearly. The anesthesia can make it hard for you to fully understand what you are agreeing to. Additional Information for Sedation Patients For patients who received sedation: You may have received medications before and/or during your procedure which effects your judgement and reaction time. Do not drive, operate machinery, drink alcoholic beverages or make important decisions for 24 hours. Be careful on stairs as you may be unsteady on your feet. You may eat a regular diet as tolerated. Do not smoke if you are alone. IV site: Slight redness or tenderness is normal, you can use a warm compress if you would like. If tenderness and/or redness increase or if foul drainage occurs, please contact your Doctor. Please call [phone] before 8pm Mon-Fri with problems, questions or concerns. If you call after 8pm or on weekends, call the Hospital at [phone] and ask to speak to the Car Dealer irrigation laborer and the hydroelectric operator will contact that person for you. When should you call for help? Call 193 anytime you think you may need emergency care. For example, call if: You passed out (lost consciousness). You pass maroon or bloody stools. You have trouble breathing. Call your doctor now or seek immediate medical care if: You have pain that does not get better after you take pain medicine. You are sick to your stomach or cannot drink fluids. You have new or worse belly pain. You have blood in your stools. You have a fever. You cannot pass stools or gas. Watch closely for changes in your health, and be sure to contact your doctor if you have any problems. Where can you learn more? [facility] View your After Visit Summary and more online at [email or web address] If you would like to provide feedback about your hospital experience, please call the Office of Patient and Family Relations at . If you have received this After Visit Summary in error, please immediately return it in person to the department, or notify the [facility] Privacy Office by calling toll free at between the hours of 8AM and 5PM to arrange for our retrieval of the documents at no cost to you. Content Version: 12.2 ?? 9329-0276 [employer]. Care instructions adapted under license by [facility]. If you have questions about a medical condition or this instruction, always ask your healthcare professional. [employer] disclaims any warranty or liability for your use of this information. documented in this encounter Medications at Time of Discharge Medication Sig Dispensed Refills Start Date End Date rivaroxaban (Xarelto) 20 mg Take 1 tablet by 90 tablet 3 Tablet mouth daily. dapagliflozin (Farxiga) 5 mg Take 1 tablet by 90 tablet 3 0 06/13/2022 Tablet mouth daily. digoxin (Lanoxin) 125 mcg Take 1 tablet by 90 tablet 3 02/2022 (0.125 mg) Tablet mouth daily. acetaminophen (Tylenol) 325 mg Take 2 tablets 30 tablet 1 0 05/21/2022 Tablet by mouth every 6 hours as needed for Pain. clopidogreL (Plavix) 75 mg Take 1 tablet by 90 tablet 3 Tablet mouth daily. metoprolol succinate XL Take 1 tablet by 30 tablet 12 2021 (Toprol-XL) 50 mg Tablet mouth daily. Sustained Release 24 hr pantoprazole EC (Protonix) 40 Take 1 tablet by 90 tablet 3 05/22/2022 mg Tablet, Delayed Release mouth daily. (E.C.) fluticasone propionate 1 spray by Each 0 04/12/20 21 (FLONASE) 50 mcg/actuation Nare route daily [place], Suspension as needed. fluorouraciL (EFUDEX) 5 % Cream daily. 0 01/2021 ascorbic acid, vitamin C, Take 1,000 mg by 0 08/11 (VITAMIN C) 1,000 mg Tablet mouth daily. sildenafiL (VIAGRA) 100 mg Take 100 mg by 0 Tablet mouth as needed for Erectile Dysfunction. carboxymethylcellulose (REFRESH Apply to eye 3 0 PLUS) 0.5 % Dropperette times daily as needed. calcium citrate (CALCITRATE) Take 1 tablet by 0 200 mg (950 mg) Tablet mouth daily. tamsulosin (FLOMAX) 0.4 mg Take 0.4 mg by 0 Capsule mouth daily. CRESTOR 40 mg Tablet Take 40 mg by 0 09/13/2016 mouth daily. MULTIVITAMIN (MULTIPLE VITAMIN Take 1 tablet by 0 ORAL) mouth daily. documented as of this encounter H&P Notes Isi Celaya MD - 06/25/2022 10:55 AM EDT Gastroenterology and Hepatology Pre-Procedure History and Physical Exam Procedure: EGD: Colonoscopy: Indication: Anemia Patient Active Problem List Diagnosis Code ??? GIB (gastrointestinal bleeding) K92.2 ??? MVP (mitral valve prolapse) s/p repair I34.1 ??? Hypertriglyceridemia E78.1 ??? Adhesive capsulitis of L shoulder M75.00 ??? Alcohol use Z72.89 ??? Basal cell carcinoma C44.91 ??? Verruca vulgaris B07.9 ??? AK (actinic keratosis) L57.0 ??? History of basal cell carcinoma Z85.828 ??? Limb ischemia I99.8 ??? Coronary artery disease involving [place] coronary artery of [place] heart without angina tzoserfoG64.10 ??? HFrEF (heart failure with reduced ejection fraction) I50.20 ??? Permanent atrial fibrillation I48.21 EXAM: HEENT: Airway examined, oropharynx clear Mallampati Score: III (soft palate, base of uvula visible) LUNGS: Clear to auscultation HEART: Regular rate and rhythm, normal S1, S2 ABDOMEN: Normal bowel sounds, soft, non tender, non distended A/P: Proceed with the planned endoscopic procedure. ASA 3 - Patient with moderate systemic disease with functional limitations Sedation Plan: anesthesia Risks and benefits of the procedure explained to the patient. Consent form signed and included in the patient's chart. Isi Celaya PGY-4, Gastroenterology documented in this encounter Plan of Treatment Upcoming Encounters Date Type Specialty Care Team Description 07/02/2022 Office Visit Vascular Surgery Jing Ghosh, LUMBER STRAIGHTENER [facility] VASCULAR SURGERY [place], [place] [address] (Wo rk) 09/02/2022 Clinical Support Dermatology Thai Lynn MD [facility] DR JENNY [place], [place] [address] (Wo rk) 09/02/2022 Procedure visit Dermatology Jace Lynn MD [facility] DR JENNY [place], [place] [address] (Wo rk) 09/05/2022 Appointment Cardiology Trinity Reid MD [facility] CARDIOLOGY [place], [place] [address] (Wo rk) 09/05/2022 Office Visit Cardiology Trinity Reid MD [facility] CARDIOLOG[facility] [place], [place] [address] (Wo rk) documented as of this encounter Procedures Procedure Name Priority Date/Time Associated Comments Diagnosis SMALL BOWEL 06/25/2022 11:01 melena +./- ENTEROSCOPY AM EDT COLONOSCOPY; W 06/25/2022 11:01 melena +./- CONTROL OF BLEEDING, AM EDT ANY METHOD EGD, UPPER GI 06/25/2022 11:01 melena +./- ENDOSCOPY AM EDT UPPER GI ENDOSCOPY Routine 06/25/2022 10:33 Resul ts for this AM EDT procedure are i n the results section. COLONOSCOPY Routine 06/25/2022 10:33 Results for this AM EDT procedure are i n the results section. documented in this encounter Results UPPER GI ENDOSCOPY (06/25/2022 10:33 AM EDT) Component Value Ref Test Analysis Performed At [facility] Method Time Signature UPPER GI [facility] Endoscopy Procedure Date: 06/25/2022 10:33 AM ? Patient Name: Koko Zamora ? Date of : 1940 ? Age: 81 ? Order #: [id number] ? Instrument Name: [id number]- [id number] ? Procedure: ? Upper GI endoscopy Indications: ? Recent gastrointestinal bleeding Providers: ? Isi Munoz, ? Brissa Vee RN, Juvenal ? Confalone Referring MD: ?[facility] Medicines: ? Propofol per Anesthesia Complications: ? [...] edison , and ? advanced to the second par t of ? duodenum The Colonoscope w as ? introduced through the [facility], and ? advanced to the proximal j ejunum ? The patient tolerated the procedure ? well. ? Findings: ? The procedure was initially performed with a ? gastroscope which was then exchanged for a pediatric ? colonoscope to perform a push enteroscopy whichy was ? advanced to the proximal jejunum. There was no active ? bleeding or blood residue to the extent of the ? examination. ? The examined esophagus was normal. ? The entire examined stomach was normal. ? A single diminutive Angioectasia without bleeding was ? found in the third portion of the duodenum. ? Coagulation for bleeding prevention using argon beam ? at 0.8 liters/minute and 20 rodríguez was successful. ? Four small angioectasias without bleeding were found ? in the jejunum. Coagulation for bleeding prevention ? using argon beam at 0.8 liters/minute and 20 rodríguez ? was successful. ? Moderate Sedation: ? Not applicable - See Anesthesia documentation Impression: ?- Normal esophagus. ? - Normal stomach. ? - A single non-bleeding ? Angioectasia in the duoden um. ? Treated with argon beam co agulation. ? - Four non-bleeding angioe ctasias ? in the proximal jejunum. T reated ? with argon beam coagulatio n. ? - No specimens collected. Recommendation: ?- Perform a colonoscopy. ? Attending Participation: ? I was present and participated during the entire ? procedure, including non-diaz portions. ? Giovani Ponce, 06/25/2022 11:30:54 AM Number of Addenda: 0 Note Initiated On: 06/25/2022 10:33 AM Specimen (Source) Anatomical Collection Method Collection Time Re ceived Time Location / / Volume Laterality 06/25/2022 10:33 AM EDT Sam Roberts MD GENERAL SURGICAL ORDERABLES Performing Organization Address City/State/ZIP Code Phon e Number [facility] COLONOS[facility] (06/25/2022 10:33 AM EDT) Component Value Ref Test Analysis Performed At [facility] Method Time Signature COLONOSCOPY [facility] Endoscopy Procedure Date: 06/25/2022 10:33 AM ? Patient Name: Koko Zamora ? Date of : 1940 ? Age: 81 ? Order #: [id number] ? Instrument Name: [id number]- [id number] ? Procedure: ? Colonoscopy Indications: ? Gastrointestinal bleeding Providers: ? Giovani Ponce, Isi puente, ? Brissa Vee, DION, Juvenal ? Confalone Referring MD: ?Sam Roberts Medicines: ? Propofol per Anesthesia Complications: ? [...] and adverse medica tion ? reactions. The patient was placed ? in the left lateral decubi tus ? position, and a digital re ctal exam ? was performed. The Colonos cope was ? inserted in the anus and u nder ? direct visualization, adva nced to ? the terminal ileum. Carefu l ? inspection was made as the ? colonoscope was withdrawn. The ? patient tolerated the proc edure ? well. The quality of the b owel ? preparation was good. ? Findings: ? There was no melena or blood residue in the colon ? The terminal ileum appeared normal. ? Two sessile polyps were found in the sigmoid colon ? and transverse colon. The polyps were small in size. ? Polypectomy was not attempted. ? A single small angioectasiae with bleeding was found ? in the rectum. Coagulation for hemostasis using argon ? beam was successful. To prevent bleeding ? post-intervention, one hemostatic clip was ? successfully placed. There were also scattered non ? bleeding telangiectasias in the rectum. ? Moderate Sedation: ? Not applicable - See Anesthesia documentation Impression: ?- The examined portion of the i leum ? was normal. ? - Two small polyps in the sigmoid ? colon and in the transvers e colon. ? Resection not attempted in the ? context of recent GI bleed ing and ? antiplatelet use. ? - A single bleeding coloni c ? angioectasiae. Treated wit h argon ? beam coagulation. Clip was placed. ? - No specimens collected. Recommendation: ?- Return patient to referring ? hospital for ongoing care. ? - Resume previous diet. ? - Follow up outpatient GI to ? discuss risks/benefits of elective ? repeat colonoscopy for yenny ypectomy ? Procedure Code(s): ? --- Professional --- ? 14785, Colonoscopy, flexib le; with ? control of bleeding, any m ethod Diagnosis Code(s): ? --- Professional --- ? K92.2, Gastrointestinal he morrhage, ? unspecified ? 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 D12.3, Benign neoplasm of ? transverse colon (hepatic flexure ? or splenic flexure) ? D12.5, Benign neoplasm of sigmoid ? colon ? --- Technical --- ? K92.2, Gastrointestinal he morrhage, ? unspecified ? 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 D12.3, Benign neoplasm of ? transverse colon (hepatic flexure ? or splenic flexure) ? D12.5, Benign neoplasm of sigmoid ? colon CPT copyright 2020 [employer]. All rights reserved. The codes documented in this report are preliminary and upon sagger filler review may be revised to meet current compliance requirements. Attending Participation: ? I personally performed the entire procedure. ? Giovani Ponce, 06/25/2022 12:03:30 PM Number of Addenda: 0 Note Initiated On: 06/25/2022 10:33 AM Specimen (Source) Anatomical Collection Method Collection Time Re ceived Time Location / / Volume Laterality 06/25/2022 10:33 AM EDT Sam Roberts MD GENERAL SURGICAL ORDERABLES Performing Organization Address City/State/ZIP Code Phon e Number [facility] documented in this encounter Visit Diagnoses Not on filedocumented in this encounter Administered Medications Inactive Administered Medications - up to 3 most recent administrations Medication Order MAR Action Action Date Dose Rate Site lactated ringers infusion New Bag 06/25/2022 11:00 AM 100 mL/hr 100 mL/hr 100 mL/hr, Intravenous, EDT CONTINUOUS, Starting on Fri06/25/22 at 1100, Until Fri06/25/22 at 1258, Endoscopy (Day of Procedure) documented in this encounter Active and Recently Administered Medications Times are shown in EDT. Continuous Medication Order 06/23/2022 06/24/2022 06/25/2022 lactated ringers infusion (CANCELED) 1100 (New Bag - Provider: Mame E Cesarini, RN) 100 mL/hr, Intravenous, CONTINUOUS, Star ting on Fri06/25/22 at 1100, Until Fri06/25/22 at 1258, Endoscopy (Day of Procedure) documented in this encounter Care Teams Cellophane Worker Relationship Specialty Start Date End Date Bobby Das MD PCP - General 10/02/[address] [place] [address] [place] [id number] documented as of this encounter
--- OUTSIDE RECORDS SUMMARY | 2022-06-28 11:05 | XMS_ITS | Encounter Summary ---
:1940 Author Organization [facility] [place] [address] Care Team Providers Name Role Phone Bobby Das MD Primary Care Provider Encounter Details Date Type Department Care Team Description 06/25/2022 Surgery Gastroenterology at [facility] Giovani Ponce, EGD, UPPER GI [facility] Bobby [place] [address] [facility] [phone] [place], [place] [address] Social History Tobacco Use Types [...] the day after the procedure, use an whsi-gro-iztmuog spray to numb your throat. Sucking on [...] occurs, please contact your Doctor. Please call [phone] before 8pm Mon-Fri with problems, questions or concerns. If you call after 8pm or on weekends, call the Hospital at [phone] and ask to speak to the Cobbler Sole button puncher and the tying machine operator lumber will contact that person for you. When should you call for help? Call [phone] anytime you think you may need emergency [...] any problems. Where can you learn more? [facility] View your After Visit Summary and more online at [email or web address] If you would like to provide feedback about your hospital experience, please call the Office of Patient and Family Relations at . If you have received this After Visit Summary in error, please immediately return it in person to the department, or notify the [facility] Privacy Office by calling toll free at between the hours of 8AM and 5PM to arrange for our retrieval of the documents at no cost to you. Content Version: 12.2 ?? 2349-6415 [employer]. Care instructions adapted under license by [facility]. If you have questions about a medical condition or this instruction, always ask your healthcare professional. [employer] disclaims any warranty or liability for [...] occurs, please contact your Doctor. Please call [phone] before 8pm Mon-Fri with problems, questions or concerns. If you call after 8pm or on weekends, call the Hospital at [phone] and ask to speak to the Cobbler Sole button puncher and the tying machine operator lumber will contact that person for you. When should you call for help? Call [phone] anytime you think you may need emergency [...] any problems. Where can you learn more? [facility] View your After Visit Summary and more online at [email or web address] If you would like to provide feedback about your hospital experience, please call the Office of Patient and Family Relations at . If you have received this After Visit Summary in error, please immediately return it in person to the department, or notify the [facility] Privacy Office by calling toll free at between the hours of 8AM and 5PM to arrange for our retrieval of the documents at no cost to you. Content Version: 12.2 ?? [phone] [employer]. Care instructions adapted under license by [facility]. If you have questions about a medical condition or this instruction, always ask your healthcare professional. [employer] disclaims any warranty or liability for your [...] 21 (FLONASE) 50 mcg/actuation Nare route daily [place], Suspension as needed. fluorouraciL (EFUDEX) 5 % Cream daily. 0 0601/2021 ascorbic acid, vitamin C, Take 1,000 mg [...] ischemia I99.8 ??? Coronary artery disease involving [place] coronary artery of [place] heart without angina mecibemlU82.10 ??? HFrEF (heart failure with reduced ejection [...] 07/02/2022 Office Visit Vascular Surgery Jing Ghosh, SHANK ARCHER [facility] VASCULAR SURGERY [place], [place] [address] (Wo rk) 09/02/2022 Clinical Support Dermatology Thai Lynn MD [facility] DR JENNY BILLY-DERMAT [place], [place] [address] (Wo rk) 09/02/2022 Procedure visit Dermatology Jace Lynn MD [facility] DR JENNY BILLY-DERMAT [place], [place] [address] (Wo rk) 09/05/2022 Appointment Cardiology Trinity Reid MD [facility] CARDIOLOGY [place], [place] [address] (Wo rk) 09/05/2022 Office Visit Cardiology Trinity Reid MD [facility] CARDIOLOGY [place], [place] [address] (Wo rk) documented as of [...] Component Value Ref Test Analysis Performed At [facility] Range Method Time Signature UPPER GI [facility] ENDOSCOPY Endoscopy Procedure Date: 06/25/2022 10:33 AM ? Patient Name: Koko Zamora ? Date of : 1940 ? Age: 81 ? Order #: [id number] ? Instrument Name: [id number]- [id number] ? Procedure: ? Upper GI endoscopy Indications: ? Recent gastrointestinal bleeding Providers: ? Isi Munoz, ? Brissa Vee RN, Juvenal ? Confalone Referring MD: ?Sam Roberts [...] Colonoscope w as ? introduced through the [facility], and ? advanced to the proximal [...] Component Value Ref Test Analysis Performed At [facility] Method Time Signature COLONOSCOPY [facility] Endoscopy Procedure Date: 06/25/2022 10:33 AM ? Patient Name: Koko Zamora ? Date of : 1940 ? Age: 81 ? Order #: [id number] ? Instrument Name: [id number]- [id number] ? Procedure: ? Colonoscopy Indications: ? Gastrointestinal bleeding Providers: ? Giovani Ponce, Isi puente, ? Brissa Vee RN, Darrell ? Vickine Referring MD: ?Sam Roberts Medicines: ? Propofol [...] Procedure Code(s): ? --- Professional --- ? 93291, Colonoscopy, flexib le; with ? control of [...] of sigmoid ? colon CPT copyright 2020 [employer]. All rights reserved. The codes documented in this report are preliminary and upon airset molder review may be revised to meet current [...] (CANCELED) 1100 (New Bag - Provider: Mame Peterson RN) 100 mL/hr, Intravenous, CONTINUOUS, Star ting on Fri06/25/22 at 1100, Until Fri06/25/22 at 1258, Endoscopy (Day of Procedure) documented in this encounter Care Teams Continuous Mining Machine Company Miner Relationship Specialty Start Date End Date Bobby Das MD PCP - General 10/02/[address] [place] [phone] documented as of this encounter
--- OUTSIDE RECORDS SUMMARY | 2022-06-28 11:05 | XMS_ITS | Encounter Summary ---
:1940 Author Organization [facility] [place] [address] Care Team Providers Name Role Phone Bobby Das MD Primary Care Provider Encounter Details Date Type Department Care Team Description 06/23/2022 Telephone Gastroenterology at [facility] Alan August MD [place] [facility] [place] [phone] GASTROENTEROLOGY DEPT [phone] [place], [place] [address] (Wo rk) Social History Tobacco [...] 06/23/2022 Time: 2:27 AM Referring Location: [facility] Referring Provider: Shahram Urena DC HPI: This [...] Office Visit Vascular Surgery Jing Ghosh, CUSTOMER PROGRAM MANAGER [facility] VASCULAR SURGERY [place] [phone] ( rk) 09/02/2022 Clinical Support Dermatology Thai Lynn MD [facility] DR JENNY BILLY-DERMAT [place], [place] [address] (Wo rk) 09/02/2022 Procedure visit Dermatology Jace Lynn MD [facility] DR JENNY BILLY-DERMAT [place], [place] [address] ( rk) 09/05/2022 Appointment Cardiology Trinity Reid MD [facility] CARDIOLOGY [place], [place] [address] (Wo rk) 09/05/2022 Office Visit Cardiology Trinity Reid MD [facility] CARDIOLOGY [place], [place] [address] (Wo rk) documented as of this encounter Visit Diagnoses Not on filedocumented in this encounter Care Teams Home Appliance Washing Machine Mechanic Relationship Specialty Start Date End Date Bobby Das MD PCP - General 10/02/[address] [place] [address] [place] [phone] documented as of this encounter
--- OUTSIDE RECORDS SUMMARY | 2022-06-28 11:05 | XMS_ITS | Encounter Summary ---
:1940 Author Organization [facility] Address [facility] [place] [address] Care Team Providers Name Role Phone Bobby Das MD Primary Care Provider Encounter Details Date Type Department Care Team Description 06/24/2022 Telephone Gastroenterology at [facility] Alan August MD [facility] [place] [phone] GASTROENTEROLOGY DEPT [phone] [place], [place] [address] (Wo rk) Social History Tobacco Use Types Packs/Day Years Used Date Former Smoker Cigarettes 0.5 50 Smokeless Tobacco: Never Used Alcohol Use Standard Drinks/Week Comments Yes 42 (1 standard drink = 0.6 oz pure alcoh ol) Sex Assigned at Date Recorded Not on file documented as of this encounter Miscellaneous Notes Telephone Encounter - Alan August MD - 06/24/2022 10:36 AM EDT See my phone encounter yesterday for additional background data. [facility]. The provider reports that Anesthesia doesn'tfeel comfortable doing procedures there, they have no attending but only CRNAs. By report, he was having some dark stools with straining, and then BRBPR started following his episodes of straining. Last colonoscopy was 5 years ago, and was reportedly normal including no polyps and no diverticulosis. This was done at [facility]. HgB 8.6 today. There has not been any further bleeding thus far. 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 We discussed that sending him over for here and back EGD alone leaves the possibility that the bleeding source is lower, and then repeat here and back colonoscopy would be needed. So as to avoid this, we agreed that today Mr. Zamora would do the bowel prep and then tomorrow we would plan on EGD first, followed by colonoscopy if no upper source was seen. Alan August MD, PGY-5 Gastroenterology and Hepatology Fellow documented in this encounter Plan of Treatment Upcoming Encounters Date Type Specialty Care Team Description 07/02/2022 Office Visit Vascular Surgery Jing Ghosh, HIRAL [facility] VASCULAR SURGERY [place], [place] [address] (Wo rk) 09/02/2022 Clinical Support Dermatology Thai Lynn MD [facility] DR JENNY BILLY-DERMAT [place], [place] [address] (Wo rk) 09/02/2022 Procedure visit Dermatology Jace Lynn MD [facility] DR JENNY BILLY-DERMAT [place], [place] [address] (Wo rk) 09/05/2022 Appointment Cardiology Trinity Reid MD [facility] CARDIOLOGY [place], [place] [address] (Wo rk) 09/05/2022 Office Visit Cardiology Trinity Reid MD [facility] CARDIOLOGY [place], [place] [address] (Wo rk) documented as of this encounter Visit Diagnoses Not on filedocumented in this encounter Care Teams Building Drafter Relationship Specialty Start Date End Date Bobby Das MD PCP - General 10/02/[address] [place] [address] [place] [phone] documented as of this encounter
--- OUTSIDE RECORDS SUMMARY | 2022-06-28 11:05 | XMS_ITS | Encounter Summary ---
:1940 Author Organization [facility] [place] [address] Care Team Providers Name Role Phone Abby Das MD Primary Care Provider Encounter Details Date Type Department Care Team Description 06/25/2022 Anesthesia Event Gastroenterology at [facility] Abby Alfaro MD [facility] [place] [address] [place] [address] [facility] David Lewis CRNA [facility] [place] [address] [place] [address] Anesthesia Record Procedure Summary Procedure Name Responsible Anesthesia Start Anesthesia Stop Time Anesthesiologist Time EGD, UPPER GI Abby Alfaro MD 06/25/22 1101 06/25/22 120 2 ENDOSCOPY (N/A Trunk) Events Date Time Event Comment 06/25/2022 1101 AN Verify 1101 Start 1101 An Start Data 1106 An Induction 1106 Anesthesia Ready 1155 1202 an stop data 1202 Recovery or ICU Handoff Patient care was transferred to the destination unit staff after review of the patient's medica l history, current anesthetic/surgi felicitas status and plan, according to the Provider Handoff Checklist. 1202 Stop Name Total Propofol 90 mg Propofol INF 350.2 mg PHENYLephrine 640 mcg Lactated Ringers 500 mL Agents Name O2 Auxiliary Flowmeter 1 Blood No blood administrations on file. Lines, Drains, and Airways Type Details Placement Removal Incision 07/20/19; 1020; back; laparoscopic 07/20/19 1020 by Tanya, puncture; biopsy site Fay Lockhart RN Incision 07/20/19; 1034; back; laparoscopic 07/20/19 1034 by Tanya puncture; vertbroplasty site Fay Lockhart RN Incision 10/25/20; 0912; thoracic spine; 10/25/20 0912 by Keisha Vargas non-laparascopic puncture; M, RN vertebroplasty site Incision 05/15/22; 1408; Left; groin 05/15/22 1408 by Jaylene Branch RN Incision 05/15/22; 1526; Left, lateral, lower; 05/15/22 1 526 by samuel Herring RN Incision 05/15/22; 1527; Left, medial, lower; 05/15/22 15 27 by samuel Herring RN PIV 06/25/22; 1046; median cubital vein 06/25/22 104 6 by Kristen, (antecubital fossa), left; Mame Lockhart RN yist-lrn-ymofgi catheter system; 18 gauge; Present on admission PIV 06/25/22; 1046; great saphenous vein 06/25/22 10 46 by Kristen, (medial side of leg), right; Mame Lockhart RN pdad-fpr-kxnsqe catheter system; Anatomical Landmarks; 18 gauge; Present on admission documented in this encounter Social History Tobacco [...] encounter OR Notes Anesthesia Postprocedure Evaluation - Abby Alfaro MD - 06/25/2022 1:31 PM EDT Department of Anesthesiology Post-procedure Note Patient: Koko Zamora Procedure Summary Date: 06/25/22 Room / Location: [facility] ENDO 4 / [facility] ENDOSCOPY Anesthesia Start: 1101 Anesthesia Stop: 1202 Procedures: EGD, UPPER GI ENDOSCOPY (N/A Trunk) COLONOSCOPY; W CONTROL OF BLEEDING, ANY METHOD (N/A Trunk) SMALL BOWEL ENTEROSCOPY (N/A Trunk) Diagnosis: (melena +./-) Surgeons: Giovani Ponce MD Responsible Provider: Abby Alfaro MD Anesthesia Type: MAC ASA Status: 3 All Anesthesia Providers: Anesthesiologist: Abby Alfaro MD CULTURIST: David Gill CRNA Vitals Value Taken Time BP 102/85 06/25/22 1240 Temp Pulse Resp 16 06/25/22 1220 SpO2 95 % 06/25/22 1245 Pain Level 0 06/25/22 1220 Vitals shown include unvalidated device data. Patient Location: PACU/[facility] Level of Consciousness: Awake and Alert Pain Management: Satisfactory Analgesia PONV: None Cardiovascular Status: At Baseline and Hemodynamically Stable Respiratory Status: At Baseline and Room Air Postoperative Fluid Status: Intravascular EUvolemia Possible Anesthetic Complications: NONE apparent at time of evaluation Final Primary Anesthesia Type: MAC (The anesthetic type performed was the same as planned.) Comments: ABBY ALFARO MD Anesthesia Preprocedure Evaluation - Abby Alfaro MD - 06/25/2022 10:52 AM EDT Pre-Anesthesia Evaluation for: Koko Zamora a 81 y.o. male. Procedure(s): EGD, UPPER GI ENDOSCOPY COLONOSCOPY, DIAGNOSTIC Patient Active Problem List Diagnosis Date Noted ??? Coronary artery disease involving [place] coronary artery of [place] heart without angina [id number]/04/2022 ??? HFrEF (heart failure with reduced ejection fraction) 06/13/2022 ??? Permanent atrial fibrillation 06/13/2022 ??? Limb ischemia 05/15/2022 ??? History of [...] BIOPSY SPINE 07/20/2019 IR Biopsy Spine 07/20/2019 Abby Marshall MD [facility] INTERVENTIONL RAD ??? IR VERTEBROPLASTY LUMBAR MULTIPLE LEVELS 07/20/2019 IR Vertebroplasty Lumbar Multiple Levels 07/20/2019 Abby Marshall MD [facility] INTERVENTIONL RAD ??? IR VERTEBROPLASTY THORACIC SINGLE LEVEL 10/25/2020 IR Vertebroplasty Thoracic Single Level 10/25/2020 Matt Chisholm MD [facility] INTERVENTIONL RAD ??? PRO EMBLC/THRMBC FEMORAL POPLITEAL AORTO-ILIAC ARTERY Left 05/15/2022 EMBOLECTOMY OR THROMBECTOMY, FEMOROPOPLITEAL, AORTOILIAC ARTERY BY LEG INCISION (WRVU 19.48) performed by Fito Summers MD at [facility] MAIN OR ??? PRO UPPER GI ENDOSCOPY, CTRL BLEED 05/31/2022 EGD, W CONTROL OF BLEEDING, ANY METHOD performed by Giovani Ponce MD at [facility] ENDOSCOPY ??? PRO UPPER GI ENDOSCOPY, DIAGNOSTIC N/A 05/31/2022 EGD, UPPER GI ENDOSCOPY performed by Giovani Ponce MD at [facility] ENDOSCOPY Social History Tobacco Use ??? Smoking status: Former Smoker Packs/day: 0.50 Years: 50.00 Pack years: 25.00 Types: Cigarettes Quit date: 05/15/2022 Years since quittin.1 ??? Smokeless tobacco: Never Used Substance Use Topics ??? Alcohol use: Yes Alcohol/week: 42.0 standard drinks Types: 42 Cans of beer per week Comment: Last alcohol use in May 2022 Social History Substance and Sexual Activity Drug Use Not Currently Allergies Allergen Reactions ??? Aspirin Other (See Comments) GI bleed Medications: MAR and/or home medications have been reviewed. Physical Exam: Preprocedure Vitals Current as of 06/25/22 1052 BP: 112/84 Pulse: 91 Resp: 18 SpO2: 94 Temp: Height: 172.7 cm (5' 8) (06/25/22) Weight: 75.8 kg (167 lb) (06/25/22) BMI: 25.39 IBW: 68.4 kg (150 lb 12.1 oz) Last edited 06/25/22 1042 by JANI Airway Assessment: Mallampati: II TM distance: >3 FB Neck ROM: full Cardiovascular Assessment: Rhythm: regular Pulmonary Assessment: unlabored breathing Dental Assessment: - normal exam Misc Assessment: IV access: Peripheral line Other exam findings: PIVX2 Last Filed Perioperative Cognitive Screening Value Time User 4AT TOTAL Score: 0 05/19/2022 8:00 AM Caroline Zamora RN Anesthesia Plan: ASA 3 MAC, with a(n) intravenous induction 81yo M with recent anemia and GIB secondary to AVM's with EGD and ablation with continued anemia andmelana for repeat EGD and colo. Transferred from OSH where he received 2 units pRBC's. PMH of remotemitral valve repair (2000), prediabetes, hyperlipidemia, significant alcohol use, tobacco use, Afib w/RVR, moderated and HFrEF(EF 28%--Recent TTE reviewed) Recently admitted to Vascular Surgery service with acute LLE limb ischemia for which he underwent left femoral cutdown with thromboembolectomy 05/15/22. Recent EGD no anesthetic issues. NPO for 2 days. Propofol, std monitors Region - Other Informed Consent: Anesthetic plan and risks discussed with patient. Plan discussed with CULTURIST. Anesthesia Screening documented in this encounter Plan of Treatment Upcoming Encounters Date Type Specialty Care Team Description 07/02/2022 Office Visit Vascular Surgery Jing Ghosh, HIRAL [facility] VASCULAR SURGERY [place], [place] [address] (Rebekah rojas) 09/02/2022 Clinical Support Dermatology Thai Lynn MD [facility] DR JENNY BILLY[facility]DER[place], [place] [address] (Rebekah rojas) 09/02/2022 Procedure visit Dermatology Jace Lynn MD [facility] ER DR JENNY BILLY-DERMAT [place], [place] [address] (Wo rk) 09/05/2022 Appointment Cardiology Trinity Reid MD [facility] CARDIOLOGY [place], [place] [address] (Wo rk) 09/05/2022 Office Visit Cardiology Trinity Reid MD [facility] CARDIOLOGY [place], [place] [address] (Wo rk) documented as of this encounter Visit Diagnoses Not on filedocumented in this encounter Administered Medications Inactive Administered Medications - up to 3 most recent administrations Medication Order MAR Action Action Date Dose Rate Site lactated ringers infusion New Bag 06/25/2022 11:01 AM EDT Intravenous, CONTINUOUS PRN, Starting on Fri06/25/22 at 1101, Until Fri06/25/22 at 1202, Anesthesia Intra-op PHENYLephrine in NS (PF) (MARLEN-SYNEPHRINE) Given 06/25/2022 11:54 AM EDT 80 mcg 0.8 mg/10 mL (80 mcg/mL) multi-dose injection Syrg Intravenous, PRN, Starting on Fri06/25/22 at 1117, Until Fri06/25/22 at 1202, Anesthesia Intra-op, Routine Given 06/25/2022 11:50 AM EDT 80 mcg Given 06/25/2022 11:44 AM EDT 80 mcg propofoL (Diprivan) (10 Rate/Dose 06/25/2022 70 mcg/kg/min 31.836 mg/mL) infusion Change 11:37 AM EDT mL/hr Intravenous, CONTINUOUS PRN, Starting on Fri06/25/22 at 1106, Until Fri06/25/22 at 1202, Anesthesia Intra-op, Routine Rate/Dose Change 06/25/2022 11:33 AM EDT 80 mcg/kg/min 36.384 mL/hr Rate/Dose Change 06/25/2022 11:10 AM EDT 100 mcg/kg/min 45.48 mL/hr propofoL (Diprivan) 10 mg/mL bolus injection Given 11:09 AM EDT 20 mg (Anesthesia) Intravenous, PRN, Starting on Fri06/25/22 at 1106, Until Fri06/25/22 at 1202, Anesthesia Intra-op Given 06/25/2022 11:08 AM EDT 20 mg Given 06/25/2022 11:06 AM EDT 50 mg documented in this encounter Care Teams Ship Joiner Relationship Specialty Start Date End Date Abby Das MD PCP - General 10/02/[address] [place] [address] [place] [phone] documented as of this encounter
--- OUTSIDE RECORDS SUMMARY | 2022-06-28 11:05 | XMS_ITS | Clinical Summary ---
:1940 Author Organization [facility] [place] [address] Care Team Providers Name Role Phone Bobby [...] 04/12/2021 Active (FLONASE) 50 mcg/actuation Each [employer], Suspension route daily as needed. 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 Permanent atrial fibrillation 06/13/2022 Last Assessment & [...] consideration of AV no de ablation and OVEN TENDER-D Limb ischemia 05/15/2022 History of basal cell carcinoma 05/31/2014 Basal cell carcinoma 03/29/2014 Verruca vulgaris 03/29/2014 AK (actinic keratosis) 03/29/2014 GIB (gastrointestinal bleeding) 06/28/2011 Overview: Secondary to 3-4 ASA/day, required admis lynette and blood transfusion MVP (mitral valve prolapse) s/p repair 06/28/2011 Overview: Surgery done at [facility] in 2 001 Hypertriglyceridemia 06/28/2011 Adhesive capsulitis of L shoulder 06/28/2011 Alcohol use 06/28/2011 Encounters Date Type Specialty Care Team Description 06/25/2022 Surgery Gastroenterology Giovani Ponce EGRACHAEL Rosales MD ENDOSCOPY 06/25/2022 Anesthesia Event Gastroenterology Bobby Alfaro MD Lehmann, Jordi S, CRNA 06/25/2022 Hospital Encounter Gastroenterology Giovani Ponce MD 06/25/2022 Orders Only Gastroenterology Isi Celaya Adenomat ous polyp syeda Mera MD colon, unspecif ied part of colon 06/24/2022 Telephone Alan Kuhn MD 06/23/2022 Telephone GastroenterAlan Rose MD 06/20/2022 Orders Only Cardiology Jeanette, HFrEF (heart fa ilure with reduced ejection fraction); Alan Hicks MD Coronary priscilla ry disease involving nikolski coronary artery of nikolski heart without angina pectoris 06/19/2022 Telephone Cardiology Kourtney Jimenez, RN 06/17/2022 Orders Only Dermatology Loretta Cohen Basal cell c carlos Paez MD (BCC) of right forehead 06/13/2022 Office Visit Cardiology Jeanette, Coronary artery disease involving nikolski coronary artery of nikolski heart without angina pectoris; Alan Hicks MD HFrEF (heart failure with reduced ejection fraction); Permanent atria l fibrillation 06/13/2022 Office Visit Vascular Surgery Fito Summers Limb isch alma Tan MD 06/13/2022 Tech Visit Vascular Surgery Demond Edson Limb isc hemia L, [place] 06/10/2022 Office Visit Dermatology Loretta Cohen Neoplasm syeda Paez MD unspecified beh avior of bone, soft t issue, and skin 05/31/2022 Anesthesia Event Gastroenterology Elmer Johnson MD Drost, Alexander J, MERCHANDISE DISPLAYER 05/31/2022 Surgery Gastroenterology Giovani Ponce EGRACHAEL Rosales MD ENDOSCOPY 05/31/2022 - Hospital Encounter Dominique Hinds GIB (g astrointestinal 06/02/2022 MD bleeding) (Primary Dx) Mahendra Victor MD Friedman, Harley P, MD Ratanamaneechat, Suphagaphan, MD 05/31/2022 Office Visit Vascular Surgery Davina, Ch Dizzy; B, STEREO EQUIPMENT INSTALLER Atrial fibrilla tion, unspecified type; SOB (shortness of breath) 05/28/2022 Telephone Vascular Surgery Dominique Bolivar RN 05/24/2022 Telephone Cardiology Kourtney Jimenez RN 05/21/2022 Hospital Encounter Cardiology Paroxysma l atrial fibrillation 05/20/2022 Surgery Cardiology Abundio Servin MD CATHETERIZATION 05/15/2022 Anesthesia Event Surgery Cari Hernandez MD Patel, Shreena K, MERCHANDISE DISPLAYER 05/15/2022 Surgery Surgery Fito Summers EMBOLECTOMY Elton [...] Former Smoker Cigarettes 0.5 50 Quit: 05/15/20 Smokeless Tobacco: Never Used Alcohol Use Standard [...] Pulse 91 06/25/2022 10:42 AM EDT Temperature 37.1 ??C (98.8 ??F) 06/02/2022 7:14 AM EDT Respiratory Rate 16 06/25/2022 12:20 PM EDT Oxygen Saturation 94% 06/25/2022 10:42 AM EDT Inhaled Oxygen Concentration - - Weight 75.8 kg (167 lb) 06/25/2022 10:42 AM EDT Height 172.7 cm (5' 8) 06/25/2022 10:42 AM EDT Body Mass Index 25.39 06/25/2022 10:42 AM EDT Plan of Treatment Upcoming Encounters Date Type Specialty Care Team Description 07/02/2022 Office Visit Vascular Surgery Jing Ghosh, STEREO EQUIPMENT INSTALLER [facility] ER VASCULAR SURGERY [place], [place] [address] (Wo rk) 09/02/2022 Clinical Support Dermatology Thai Lynn MD [facility] ER DR JENNY BILLY-DERMAT [place], [place] [address] (Wo rk) 09/02/2022 Procedure visit Dermatology Jace Lynn MD [facility] ER DR JENNY BILLY-DERMAT [place], [place] [address] (Wo rk) 09/05/2022 Appointment Cardiology Trinity Reid MD [facility] ER CARDIOLOGY [place], [place] [address] (Wo rk) 09/05/2022 Office Visit Cardiology Trinity Reid MD [facility] CARDIOLOGY [place], [place] [address] (Wo rk) Health Maintenance Due Date Last Done Comments Covid-19 Vaccine (#1) 1947 Hepatitis C Screening 1960 Tdap adult 1961 Tetanus vaccine 1961 Zoster vaccine (1 of 2) 1992 Advance Directive 1997 Pneumoccocal Vaccine: 65+ (1 - PCV) 2007 Influenza (Flu) vaccine (1 of 1 - Influenza standard 07/11/2022 series) Procedures Procedure Name Priority Date/Time Associated Diagnosis Comme nts SMALL BOWEL ENTEROSCOPY 06/25/2022 11:01 melena +./- AM EDT COLONOSCOPY; W CONTROL 06/25/2022 11:01 melena +./- OF BLEEDING, ANY METHOD AM EDT EGD, UPPER GI ENDOSCOPY 06/25/2022 11:01 melena +./- AM EDT UPPER GI ENDOSCOPY Routine 06/25/2022 10:33 Resul ts for this AM EDT procedure are i n the results section. COLONOSCOPY Routine 06/25/2022 10:33 Results for this AM EDT procedure are i n the results section. JOSSELYN, LEGS, MULTIPLE Routine 06/13/2022 7:13 Limb [...] results section. from Last 3 Months Results UPPER GI ENDOSCOPY (06/25/2022 10:33 AM EDT) Component Value Ref Test Analysis Performed At [facility] Range Method Time Signature UPPER GI [facility] ENDOSCOPY Endoscopy Procedure Date: 06/25/2022 10:33 AM ? Patient Name: Koko Bah ? Date of : 1940 ? Age: 81 ? Order #: [id number] ? Instrument Name: [id number]- [id number] ? Procedure: ? Upper GI endoscopy Indications: ? Recent gastrointestinal bleeding Providers: ? Isi Munoz, ? Brissa Vee, DIONJuvenal ? Confalone Referring MD: ?Sam Roberts Medicines: [...] to the vanessa ent. ? Specifically discussed bindu stern ? potential complications in cluding, ? but not limited to, amarilys jasmine, ? perforation, infection, mi ssing a ? cancer, and adverse medica tion ? reactions. The Endoscope w as ? introduced through the edison , and ? advanced to the second par t of ? duodenum The Colonoscope w as ? introduced through the edison , and ? advanced to the proximal j [...] Component Value Ref Test Analysis Performed At [facility] Range Method Time Signature COLONOSCOPY [facility] [employer] Endoscopy Procedure Date: 06/25/2022 10:33 AM ? Patient Name: Koko Bah ? Date of : 1940 ? Age: 81 ? Order #: [id number] ? Instrument Name: [id number]- [id number] ? Procedure: ? Colonoscopy Indications: ? Gastrointestinal bleeding Providers: ? Giovani Ponce, Isi puente, ? Brissa Vee RN, Juvenal ? Confalone Referring MD: ?[facility]: ? Propofol per Anesthesia Complications: ? No [...] Procedure Code(s): ? --- Professional --- ? 50112, Colonoscopy, flexib le; with ? control of [...] of sigmoid ? colon CPT copyright 2020 [employer]. All rights reserved. The codes documented in this report are preliminary and upon carbonation equipment tender review may be revised to meet current [...] Address City/State/ZIP Code Phon e Number [place] JOSSELYN, legs, multiple levels (06/13/2022 7:13 AM EDT) Component Value Ref Test Analysis Performed At [employer] gist Range Method Time Signature VB Text Department: Vascular Surgery Lab VASCUBASE Report Patient: [id number] (ECHO BAHNEY) CPT: 76833 Referring Physician: FITO COLUMBO ?? Phone: Indications: s/p L ENERGY ECONOMIST endart. Diabetes mellitus: no Findings: Right ?Pressure [...] Summers MD VASCULAR ORDERABLES Performing Organization Address City/[facility]/ZIP Code Phon e Number VASCUBASE Specimen to Pathology (06/10/2022 1:20 PM EDT) Specimen Anatomical Collection Method Collection Time Receive d Time (Source) Location / / Volume Laterality AP Specimen 06/10/2022 1:20 PM 2 1:20 EDT PM EDT Narrative [facility] LABORAT ORY - 06/10/2022 1:20 PM EDT Specimen requisition ordered. ??Separate Pathology report to follow Loretta Cohen MD PATHOLOGY/CYTOLOGY ORDERABLE S Performing Organization Address [facility] [place] [address] Surgical Pathology Report (06/10/2022 11:43 AM EDT) Component Value Ref Test Analysis Performed At [facility] Range Method Time Signature Surgical [id number] ? Location: [facility] Report The signing pathologist has (i) examined the relevant preparation(s) for the MEMORIAL specimen(s) and (ii) rendered or confirmed the diagnosis(es) . HOSPITAL LABORATORY . ?Surgic al Pathology DIAGNOSIS Right lateral eyebrow, skin shave biopsy: - ??Basal cell carcinoma, no dular pattern, transected at the peripheral and deep specimen edges Electronically signed by: ?Delroy CARCAMO, PhD, [place] Verified: ??06/12/2022 14:33 ??Dermatopathologist Performed at: ??-[facility] Dept. [place]ology, [place], [place] SPECIMEN(S) SUBMITTED A - right lateral [...] Organization Address City/State/[place] [address] (ABNORMAL) Hemogram (06/02/2022 8:20 AM EDT)Only the most recent of14 results within the time period is included. Analysis Performed At Patho logist Time Signature WBC 7.2 4.0 - 9.5 [facility] x10(3)/[facility] LABORATORY RBC 2.74 (L) 4.58 - [place] XIAO 5.54 [facility] x10(6)/[facility] LABORATORY Hemoglobin 8.7 (L) 13.7 - [place] 16.5 g/dL [facility] LABORATORY Hematocrit 25.7 (L) 40.5 - [place] 48.5 % [facility] LABORATORY MCV 93.8 (H) 82.9 - [place] [place] 93.1 fL [facility] LABORATORY MCH 31.8 27.5 - [facility] 32.1 pg [facility] LABORATORY MCHC 33.9 32.0 - [facility] XIAO 35.7 g/dL [facility] LABORATORY Platelets 260 145 - 357 [facility] x10(3)/[facility] LABORATORY RDWSD 51.0 (H) 36.0 - [facility] 45.0 [facility] LABORATORY RDWCV 14.9 (H) 11.4 - [facility] 13.8 % [facility] LABORATORY MPV 10.0 7.6 - 12.9 [facility] LABORATORY nRBC % Auto 0.0 % [facility] LABORATORY nRBC Abs Auto 0.000 0.000 - [facility] 0.000 [facility] x10(3)/[facility] LABORATORY Specimen Anatomical Collection Method Collection Time Receive d Time (Source) Location / / Volume Laterality Blood 06/02/2022 8:20 AM 8:25 EDT AM EDT Resulting Agency Comment Spec In Lab Kurt Ames MD HEMATOLOGY ORDERABLES Performing Organization Address City/State/[place] [address] (ABNORMAL) Differential, Automated (06/02/2022 8:20 AM EDT)Only the most recent of14 resultswithin the time period is included. athologist Signature Neutrophils % 61.3 % [facility] LABORATORY Neutr Abs (ANC) 4.44 1.70 - [facility] XIAO 6.10 [facility] x10(3)/[facility] LABORATORY Lymphocytes % 25.2 % [facility] LABORATORY Lymphocytes Abs 1.8 0.9 - 3.2 [facility] x10(3)/[facility] LABORATORY Monocytes % 10.0 % [facility] LABORATORY Monocyte Abs 0.7 0.3 - 0.9 [facility] x10(3)/[facility] LABORATORY Eosinophils % 2.1 % [facility] LABORATORY Eosinophils Abs 0.2 0.0 - 0.4 [facility] x10(3)/[facility] LABORATORY Basophils % 0.7 % [facility] LABORATORY Basophils Abs 0.0 0.0 - 0.1 [facility] x10(3)/[facility] LABORATORY Immature Gran % 0.70 % [facility] LABORATORY Comment: Immature granulocytes(IG's)percentage an d absolute count will include metamyelocytes, myelocytes, and promyelo cytes. Blood smears from CBCs yielding IG's will be scanned manually for concor dance. If this scan disagrees with the automated IG or if promyelocytes are not ed, a manual differential will be performed. Rain Gran Abs 0.05 (H) 0.00 - 0.04 x10(3)/[facility] LABORATORY Specimen Anatomical Collection Method Collection Time Receive d Time (Source) Location / / Volume Laterality Blood 06/02/2022 8:20 AM 2 8:25 EDT AM EDT Resulting Agency Comment Spec In Lab Kurt Ames MD HEMATOLOGY ORDERABLES Performing Organization Address City/State/[place] [address] Heparin (unfractionated) Level (06/02/2022 6:30 AM EDT)Only the most recent of11 resultswithin the time period is included. athologist Signature Heparin UFH 0.39 IU/mL [facility] LABORATORY Comment: Heparin (anti-Xa) levels should [...] Organization Address City/State/ZIP Code Phon e Number [address] Magnesium (06/02/2022 12:30 AM EDT)Only the most recent of5 resultswithin the time period is included. athologist Signature Magnesium 0.83 0.69 - 1.07 [facility] mmol/L [facility] LABORATORY Specimen Anatomical Collection Method Collection Time Receive d Time (Source) Location / / Volume Laterality Blood 06/02/2022 12:30 06/02/2022 AM EDT 12:40 AM EDT Resulting Agency Comment Spec In Lab Mahendra Victor MD CHEMISTRY ORDERABLES Performing Organization Address City/[facility]/ZIP Code Phon e Number [address] (ABNORMAL) Basic Metabolic Panel (non-fasting) (06/02/2022 12:30 AM EDT)Only the most recent of6 resultswithin the time period is included. athologist Signature Glucose Lvl 151 65 - 199 [facility] mg/dL [facility] LABORATORY Comment: Diabetes: >=200 mg/dL plus symp toms BUN 12 10 - 20 mg/dL [facility] LABORATORY Creatinine 0.71 (L) 0.80 - 1.50 mg/dL [facility] LABORATORY Sodium 142 135 - 145 mmol/L [facility] LABORATORY Potassium 3.8 3.5 - 5.0 mmol/L [facility] LABORATORY Comment: Please note: ??Patients [...] Anion Gap 10 5 - 15 mmol/L [facility] LABORATORY Calcium 8.1 (L) 8.5 - 10.5 mg/dL [facility] LABORATORY Estimated GFR 93 >=60 mL/min/1.73 m?? [facility] [...] Organization Address City/State/[place] [address] SCAN DOC: TELEMETRY STRIPS (06/01/2022 8:37 PM EDT)Only the most recent of8 resultswithin the time period is included. Narrative This result has an attachment that is no t available. Unknown MEDIA MGR SCAN EXT ORDR/RSLT (ABNORMAL) Urinalysis with reflex Culture (06/01/2022 4:00 AM EDT)Only the most recent of2 resultswithin the time period is included. [employer] gist Method Time Signature Glucose UA 500 Negative [facility] (Critical) mg/dL [facility] LABORATORY Comment: Urinalysis result NOT critical without a combination of Glucose greater than or equal to 500 mg/dL AND Ketones greate r than or equal to 80 mg/dL Protein UA Negative Negative mg/dL [facility] LABORATORY Bilirubin UA Negative Negative mg/dL [facility] LABORATORY Comment: Clinical correlation required for positi ve Urine Bilirubin results as false positive may occur with some drugs and d rug related products. If a false positive is suspected a serum total bili quarles should be considered if clinically indicated. Urobilinogen UA Normal Normal mg/dL [facility] LABORATORY pH UA 6.0 5.0 - 8.0 [facility] LABORATORY Blood UA Negative Negative mg/dL [facility] LABORATORY Ketones UA Negative Negative mg/dL [facility] LABORATORY Nitrite UA Negative Negative [facility] LABORATORY Leukocytes UA Negative Negative [facility] LABORATORY Appearance UA Clear Clear [facility] LABORATORY Spec [place] UA >=1.030 (A) 1.005 - 1.030 [facility] LABORATORY Color UA Yellow Yellow [facility] LABORATORY Culture Reflexed No [facility] LABORATORY Specimen Anatomical Collection Method Collection Time Receive d Time (Source) Location / / Volume Laterality Clean Catch 06/01/2022 4:00 AM 4:26 Urine EDT AM EDT Resulting Agency Comment Spec In Lab Mahendra Victor MD URINE ORDERABLES Performing Organization Address City/State/[place] [address] Transfuse RBC (05/31/2022 7:36 PM EDT) Dominique Hinds MD NURSING TREATMENT ORDERABLES - BLOOD ADMIN UPPER GI ENDOSCOPY (05/31/2022 3:37 PM EDT) Component Value Ref Test Analysis Performed At [facility] Range Method Time Signature UPPER GI [facility] [employer] ENDOSCOPY Endoscopy Procedure Date: 05/31/2022 3:37 PM ? Patient Name: Koko Bah ? Date of : 1940 ? Age: 81 ? Order #: [id number] ? Instrument Name: [id number] ? Procedure: ? Upper GI endoscopy Indications: ? Melena, Suspected upper ? gastrointestinal bleeding Providers: ? Torrey Munoz , ? Vani Wei, RN, Juhi Mayerdouglas, ? Torres Ovalle MD: ?Dominique Hinds Medicines: ? Propofol per [...] Procedure Code(s): ? --- Professional --- ? 93698, Esophagogastroduode noscopy, ? flexible, transoral; with control [...] of stomach ? and duodenum CPT copyright 2021 [employer]. All rights reserved. The codes documented in this report are preliminary and upon carbonation equipment tender review may be revised to meet current [...] who have questions please contact the health infant childcare provider that requested your imaging first. ? Electronically signed by: Jl walter MD, [facility] ([phone]), at 05/31/2022 2:39 PM Narrative 05/31/2022 2:39 PM EDT EXAMINATION: CT ABDOMEN AND PELVIS WWO CONTRAST (GI BLEED) CLINICAL HISTORY: Significant Hb drop. U nknown source. has had a C with stent placed and revascularization of left low er extremity within the past two weeks, recently on anticoagulation Unknown source of bleeding TECHNIQUE: Helical CT of the abdomen and pelvis was performed before and after the intravenous administration contrast utilizing GI bleed protocol. Administered 125.0 ml of OMNIPAQUE 350.0 0 mg/ml. Oral contrast was not administered. COMPARISON: 05/15/2022 from [facility] FINDINGS: GI Tract: Pre-contrast: [...] enlarged lymph nodes. Vasculature: Patent common iliac, taxonomy teacher al iliac, and common femoral arteries bilaterally. [...] the original. EXAMINATION: CT ABDOMEN AND PELVIS WWElton Hicks ONTRAST (GI BLEED) CLINICAL HISTORY: Significant Hb [...] contrast was not administered. COMPARISON: 05/15/2022 from [facility] FINDINGS: GI Tract: Pre-contrast: [...] enlarged lymph nodes. Vasculature: Patent common iliac, taxonomy teacher al iliac, and common femoral arteries bilaterally. [...] ho have questions please contact the health infant childcare provider that requested your imaging first. Dominique Hinds MD IMG CT ORDERABLES Type and Screen Validity (05/31/2022 1:43 PM EDT)Only the most recent of2 resultswithin the time period is included. [employer] gist Method Time Signature T&S only valid [facility] LABORATORY Comment: This Type and Screen result is only valid at the [facility] Specimen Anatomical Collection Method Collection Time Receive d Time (Source) Location / / Volume Laterality Blood 05/31/2022 1:43 PM 2 1:57 EDT PM EDT Resulting Agency Comment Spec In Lab Dominique Hinds MD BLOOD BANK ORDERABLES Performing Organization Address City/[facility]/[place] [address] ABORH Recheck Status (05/31/2022 1:43 PM EDT)Only the most recent of2 results within the time period is included. Patholo gist Method Time Signature ABORH Type Completed [facility] LABORATORY Specimen Anatomical Collection Method Collection Time Receive d Time (Source) Location / / Volume Laterality Blood 05/31/2022 1:43 PM 2 1:57 EDT PM EDT Resulting Agency Comment Spec In Lab Dominique Hinds MD BLOOD BANK ORDERABLES Performing Organization Address City/[facility]/[place] [address] ABO/Rh Typing (05/31/2022 1:43 [...] MD BLOOD BANK ORDERABLES Performing Organization Address City/[facility]/[place] [address] Antibody screen (05/31/2022 1:43 PM EDT)Only the most recent of2 resultswithin the time period is included. [employer] gist Method Time Signature Ab Screen Negative [facility] LABORATORY Expires at 06/03/2022 [facility] [id number] on: [facility] LABORATORY Specimen Anatomical Collection Method Collection Time Receive d Time (Source) Location / / Volume Laterality Blood 05/31/2022 1:43 PM 2 1:57 EDT PM EDT Resulting Agency Comment Spec In Lab Dominique Hinds MD BLOOD BANK ORDERABLES Performing Organization Address City/[facility]/ZIP Code Phon e Number [address] Prepare RBC (05/31/2022 1:35 PM EDT)Only the most recent of2 resultswithin the time period is included. athologist Signature Dispensed? Yes [facility] LABORATORY Specimen Anatomical Collection Method Collection Time Receive d Time (Source) Location / / Volume Laterality Blood 05/31/2022 1:35 PM 2 1:30 EDT PM EDT Dominique Hinds MD BLOOD BANK ORDERABLES Performing Organization Address City/State/ZIP Code Phon e Number [address] (ABNORMAL) BLOOD GAS 2 VENOUS (05/31/2022 11:24 AM EDT) athologist Signature pH [place] 7.38 7.32 - [facility] 7.42 [facility] LABORATORY pCO2 [place] 40 (L) 41 - 51 [facility] LABORATORY pO2 [place] 18 (L) 25 - 40 [facility] LABORATORY HCO3 [place] 23.3 mmol/L [facility] LABORATORY BE [place] -1.8 mmol/L [facility] LABORATORY Hgb Blood Gas 7.0 (L) 13.7 - [facility] 16.5 g/dL [facility] LABORATORY O2HB [place] 24.3 % [facility] LABORATORY COHB [place] 1.4 % [facility] LABORATORY Comment: Nonsmokers: 0.5-1.5% COHB Smokers: Variable, but usually less than 10% Toxic: 20-30% COHB Lethal: Greater than 60% COHB METHB [place] 1.7 (H) <=1.5 % [facility] LABORATORY Na Whole Blood 137 135 - 145 mmol/L [facility] LABORATORY K Whole Blood 3.9 3.5 - 5.0 mmol/L [facility] LABORATORY Comment: Please note: Patients with WBC >100,000 may have falsely elevated Potassium levels. Contact the Clinical Chemistry L aboratory if there are any questions. ICa Whole Blood 1.19 1.15 - 1.33 mmol/L [facility] LABORATORY Comment: Note: ??Total bilirubin higher than 20 m g/dL may lead to falsely low ionized calcium. CL Whole Blood 107 98 - 107 mmol/L [facility] LABORATORY Gluc Whole Bld 204 (H) 65 - 199 mg/dL [facility] LABORATORY Comment: Diabetes: >=200 mg/dL plus symp toms Lactate WB 1.4 0.5 - 2.2 mmol/L [facility] LABORATORY BGas Source Venous [facility] LABORATORY Specimen Anatomical Collection Method Collection Time Receive d Time (Source) Location / / Volume Laterality Blood 05/31/2022 11:24 05/31/2022 AM EDT 11:24 AM EDT Dominique Hinds MD CHEMISTRY ORDERABLES Performing Organization Address City/[facility]/ZIP Code Phon e Number [address] TSH [place] (05/31/2022 11:20 AM EDT) P athologist Signature TSH 1.67 0.27 - 4.20 [facility] mcIU/mL [facility] LABORATORY Comment: Reference Interval (mcIU/mL): Females: ??First Trimester: 0.23-3.88 ??Second Trimester: 0.22-3.90 ??Third Trimester: 0.44-4.66 Specimen Anatomical Collection Method Collection Time Receive d Time (Source) Location / / Volume Laterality Blood 05/31/2022 11:20 05/31/2022 AM EDT 11:28 AM EDT Resulting Agency Comment Spec In Lab Dominique Hinds MD CHEMISTRY ORDERABLES Performing Organization Address City/[facility]/ZIP Code Phon e Number [address] XR Chest PA & [...] who have questions please contact the health infant childcare provider that requested your imaging first. ? Electronically signed by: Alan strong MD, [facility] ([phone]), at 05/31/2022 11:33 AM Narrative 05/31/2022 11:33 [...] ho have questions please contact the health infant childcare provider that requested your imaging first. Dominique Hinds MD IMG DX ORDERABLES Blue Tube HOLD (05/31/2022 10:50 AM EDT) athologist Signature Blue Hold Sample in [facility] lab. [facility] LABORATORY Specimen Anatomical Collection Method Collection Time Receive d Time (Source) Location / / Volume Laterality Blood Venous Draw / 05/31/2022 10:50 05/31/2022 Unknown AM EDT 11:05 AM EDT Brittany Ramirez MD HEMATOLOGY ORDERABLES Performing Organization Address City/State/[place] [address] Troponin (05/31/2022 10:50 AM EDT) athologist Signature Troponin-T <0.01 0.00 - 0.00 [facility] ng/mL [facility] LABORATORY Comment: The 99th percentile for Troponin T is le ss than 0.01 ng/mL, any detectable cTnT concentration using this assay should be considered elevated. According to the third universal definit ion of myocardial infarction the following criteria with a clinical prese ntation consistent with acute myocardial ischemia meets the diagnosis for a myocardial infarction (SC). Detection of a rise and/or fall of [...] additional sample may be indicated. Reference: Third [place] Definition of Myocardial Infarction. Journal of the [place] [employer] 2012;60:1581-98 Specimen Anatomical Collection Method Collection Time Receive d Time (Source) Location / / Volume Laterality Blood 05/31/2022 10:50 05/31/2022 AM EDT 11:03 AM EDT Resulting Agency Comment Spec In Lab Dominique Hinds MD CHEMISTRY ORDERABLES Performing Organization Address City/State/[place] [address] Phosphorus (05/31/2022 10:50 AM EDT)Only the most recent of2 resultswithin the time period is included. P athologist Signature Phosphorus 3.2 2.5 - 4.5 [place] mg/dL [facility] LABORATORY Specimen Anatomical Collection Method Collection Time Receive d Time (Source) Location / / Volume Laterality Blood 05/31/2022 10:50 05/31/2022 AM EDT 11:03 AM EDT Resulting Agency Comment Spec In Lab Dominique Hinds MD CHEMISTRY ORDERABLES Performing Organization Address City/State/[place] [address] (ABNORMAL) pro-Brain Natriuretic Peptide (05/31/2022 10:50 AM EDT) P athologist Signature ProBNP 1,077 (H) <=449 [facility] pg/mL [facility] LABORATORY Specimen Anatomical Collection Method Collection Time Receive d Time (Source) Location / / Volume Laterality Blood 05/31/2022 10:50 05/31/2022 AM EDT 11:03 AM EDT Resulting Agency Comment Spec In Lab Dominique Hinds MD CHEMISTRY ORDERABLES Performing Organization Address City/[facility]/ZIP Code Phon e Number [address] Lipase (05/31/2022 10:50 AM EDT) P athologist Signature Lipase 41 0 - 60 [facility] XIAO unit/L [facility] LABORATORY Specimen Anatomical Collection Method Collection Time Receive d Time (Source) Location / / Volume Laterality Blood Venous Draw / 05/31/2022 10:50 05/31/2022 Unknown AM EDT 11:11 AM EDT Resulting Agency Comment Spec In Lab Zain Champion MD CHEMISTRY ORDERABLES Performing Organization Address City/[facility]/ZIP Code Phon e Number [address] (ABNORMAL) Hepatic Function Panel (05/31/2022 10:50 AM EDT) Analysis Performed At Patho logist Time Signature Total Protein 6.4 6.1 - 8.0 [facility] g/dL [facility] LABORATORY Albumin 4.1 3.2 - 5.2 [facility] g/dL [facility] LABORATORY AST 24 0 - 39 [facility] unit/L [facility] LABORATORY ALT 44 0 - 55 [facility] unit/L [facility] LABORATORY Alk Phos 63 40 - 130 [facility] unit/L [facility] LABORATORY Total <0.2 (L) 0.2 - 1.3 [facility] Bilirubin mg/dL [facility] LABORATORY Bili, Direct 0.1 0.0 - 0.3 [facility] XIAO mg/dL [facility] LABORATORY Specimen Anatomical Collection Method Collection Time Receive d Time (Source) Location / / Volume Laterality Blood Venous Draw / 05/31/2022 10:50 05/31/2022 Unknown AM EDT 11:11 AM EDT Resulting Agency Comment Spec In Lab Zain Champion MD CHEMISTRY ORDERABLES Performing Organization Address City/[facility]/ZIP Code Phon e Number [address] EKG 12 Lead (05/31/2022 10:11 AM EDT)Only the most recent of3 resultswithin the time period is included. Component Value Ref Range Test Analysis Performed Pathologis t Method Time At Signature Ventricular rate 106 BPM MUSE SYSTEM QRS Duration 122 ms MUSE SYSTEM Q-T Interval 368 ms MUSE SYSTEM QTC Calculated 488 ms MUSE SYSTEM (Bezet) Calculated R [place] -43 degrees MUSE SYSTEM Calculated T [place] 109 degrees MUSE SYSTEM INTERPRETATION Atrial fibrillation [...] erpretation Confirmed by fellow MD Mike, [place] ([id number]) on 022 8:36:21 PM Confirmed by MD [...] SYSTEM - 05/20/2022 7:09 PM ED T ?[facility] ? Cardiac Cathete rization/Intervention Report ? Patient Name: Koko Bah. ? Procedure Date: 05/20/2022 ? A #: [id number] ? Primary Physician: Abundio Servin ? Case #: [id number] ? File Name: [id number] ? Catheterization Order Number: [id number] ? [facility] ? Final Report [place], [place] ? Patient Name: ? Koko wilson ? ID#: ?[id number] ? : ?1940 ? Procedure Date: ? May 20, 2022 ?Case #: ? -[id number] ? Room: ? 1 ? Case Physician: ? Abundio Brady n, M.D. ? Start: ?17:16 ? Admission: ??05/15/2022 ? Referring Physician: ??Sam Hernandez, P.A. ? Procedures: ?* Coronary Angiography ?* Left Heart Catheterization ?* Coronary Ultrasound ?* Coronary Angioplasty ?* Coronary Stent Insertion ? History ?Kook Bah is a 81 year old man. [...] procedure was Urgent. The indication for ?the laboratory manager visit is cardiomyo nita. Chest pain [...] ?3.5 guiding catheter and a 3.5 Fr [place] [facility] [address] ??20 Mhz. ??Imaging ?was successful. ??Image [...] premounted 2. 75 x 30 mm [place]y [place] (AMPARO) was deployed ? with a maximum [...] require ?modification of this regimen. C onsult [facility] Interventional Cardiology for ?questions. ?The 1 year [...] POC Glucose 123 65 - 199 [facility] mg/dL [facility] LABORATORY [...] Address City/State/ZIP Code Phon e [place] [address] (ABNORMAL) BMP w/fasting Glucose (05/20/2022 10:50 AM EDT) P athologist Signature Glucose 152 (H) 65 - 99 [facility] [place] Fasting mg/dL [facility] LABORATORY [...] of Diabetes Mellitus, Position Statement from the [place] [employer]. ??Diabete s Care, Volume 33, Supplement 1, Nov 2009 BUN 11 10 - 20 mg/dL [facility] Creatinine 0.63 (L) 0.80 - 1.50 mg/dL [facility] LABORATORY Sodium 137 135 - 145 mmol/L [facility] LABORATORY Potassium 3.6 3.5 - 5.0 mmol/L [facility] LABORATORY Comment: Please note: ??Patients [...] Anion Gap 10 5 - 15 mmol/L [facility] LABOR[facility]ORY Calcium 8.7 8.5 - 10.5 mg/dL [facility] LABORATORY Estimated GFR 97 >=60 [...] Summers MD CHEMISTRY ORDERABLES Performing Organization Address City/[facility]/ZIP Code Phon e Number [address] TSH (05/18/2022 8:00 PM EDT) P athologist Signature TSH 2.27 0.27 - 4.20 [facility] mcIU/mL [facility] LABORATORY Comment: Reference Interval (mcIU/mL): Females: ??First Trimester: 0.23-3.88 ??Second Trimester: 0.22-3.90 ??Third Trimester: 0.44-4.66 Specimen Anatomical Collection Method Collection Time Receive d Time (Source) Location / / Volume Laterality Blood 05/18/2022 8:00 PM 8:06 EDT PM EDT Resulting Agency Comment Spec In Lab Fito Summers MD CHEMISTRY ORDERABLES Performing Organization Address City/[facility]/ZIP Code Phon e Number [address] (ABNORMAL) Urinalysis Microscopic Exam (05/16/2022 [...] Patiño MD URINE ORDERABLES Performing Organization Address City/[facility]/ZIP Code Phon e Number [address] XR Chest One View (05/16/2022 [...] who have questions please contact the health infant childcare provider that requested your imaging first. ? Electronically signed by: Tiffanie George MD , [facility] ([phone]), at 05/16/2022 9:27 PM Narrative 05/16/2022 9:27 [...] ho have questions please contact the health infant childcare provider that requested your imaging first. Fito Summers MD IMG DX ORDERABLES ECHOCARDIOGRAM COMPLETE W CONTRAST (05/16/2022 12:49 PM EDT) P athologist Signature EF 28 [facility] Specimen (Source) Anatomical Collection Method Collection Time Re ceived Time Location / / Volume Laterality 05/16/2022 11:22 AM EDT Narrative [facility] - 05/16/2022 1:54 PM EDT ?[facility] ?[address] ? [place], [place] [address] ?Voice: ?Fax: ? Echocardiogram Report Name: KOKO BAH ?Study Date: 05/16/2022 11:22 AM ? Patient Location: [address] [place], [place] [address] : 1940 ? Height: 67.5 in ? Account: [id number] Age: 81 yrs ? Weight: 176 lb Gender: Male ?BSA: 1.9 m2 Ordering Physician: FITO SUMMERS Referring Physician: MALI FLORIAN Performed By: Jolene Bernard RDCS Exam Location: [facility]. Interpretation Summary Left ventricle is mildly dilated. [...] and LV systolic dysfunction are new. Procedure Complete-[id number]. Image enhancement Optiso n was used for [...] note might be different from the original. [facility] [employer] [address] Voice: Fax: Echocardiogram Report Name: KOKO BAH Study Date: 05/2022 11:22 AM Patient Location: [address] [place] [address] : 1940 Height: 67.5 in Account: [id number] Age: 81 yrs Weight: 176 lb Gender: Male BSA: 1.9 m2 Ordering Physician: FITO SUMMERS Referring Physician: MALI FLORIAN Performed By: Jolene Bernard RDCS Exam Location: [facility]. Interpretation Summary Left ventricle is mildly dilated. [...] and LV systolic dysfunction are new. Procedure Complete-[id number]. Image enhancement Optiso n was used for [...] Signature pH Art 7.33 (L) 7.35 - [facility] 7.45 [facility] LABORATORY pCO2 Art 41 35 - 45 [facility] LABORATORY pO2 Art 131 (H) 85 - 104 [facility] LABORATORY HCO3 Art 21.1 20.0 - [facility] 26.0 [facility] mmol/L [facility] LABORATORY BE Art -4.8 (L) -3.0 - 3.0 [facility] mmol/L [facility] LABORATORY Hgb Blood Gas 13.4 (L) 13.7 - [facility] 16.5 g/dL [facility] O2HB Art 96.9 94.0 - [facility] 97.0 % [facility] LABORATORY COHB Art 1.4 % [facility] LABORATORY Comment: Nonsmokers: 0.5-1.5% COHB Smokers: Variable, but usually less than 10% Toxic: 20-30% COHB Lethal: Greater than 60% COHB METHB Art 0.3 <=1.5 % [facility] LABORATORY Na Whole Blood 139 [...] Lactate WB 2.0 0.5 - 2.2 mmol/L [facility] LABORATORY Specimen Anatomical Collection Method Collection Time Receive d Time (Source) Location / / Volume Laterality Blood 05/15/2022 3:33 PM 2 3:[address] Jamel Torre MD CHEMISTRY ORDERABLES Performing Organization Address City/[facility]/[place] [address] (ABNORMAL) APTT (05/15/2022 12:30 [...] Morales DO HEMATOLOGY ORDERABLES Performing Organization Address [facility] [place] [address] (ABNORMAL) Prothrombin Time (05/15/2022 12:30 PM EDT) athologist Signature PT 12.9 (H) 9.4 - 12.5 [facility] LABORATORY INR 1.1 [facility] [...] Morales DO HEMATOLOGY ORDERABLES Performing Organization Address [facility]/[place] [address] Gold Tube HOLD (05/15/2022 12:20 PM EDT) P athologist Signature Gold Hold Sample in [facility] lab. [facility] LABORATORY Specimen Anatomical Collection Method Collection Time Receive d Time (Source) Location / / Volume Laterality Blood No Charge / 05/15/2022 12:20 05/15/2022 Unknown PM EDT 12:20 PM EDT Lc TRIPP CHEMISTRY ORDERABLES Performing Organization Address City/State/[place] [address] CK (05/15/2022 12:00 PM EDT) athologist Signature CK, Total 87 0 - 200 [facility] unit/L [facility] LABORATORY Specimen Anatomical Collection Method Collection Time Receive d Time (Source) Location / / Volume Laterality Blood Venous Draw / 05/15/2022 12:00 05/15/2022 Unknown PM EDT 12:19 PM EDT Resulting Agency Comment Spec In Lab Fito Summers MD CHEMISTRY ORDERABLES Performing Organization Address City/[facility]/[place] [address] Film Library- Storage Only CT Abdomen (05/15/2022 9:32 AM EDT) Specimen (Source) Anatomical Location Collection Method / Collectio n Time Received Time / Laterality Volume Narrative RAD - 05/15/2022 9:32 AM EDT This exam is auto-finalizing. It's purpo se is for storage only. Matt Branham MD [facility] FILM LIBRARY ORDERABLES Performing Organization Address City/[facility]/ZIP Code Phon e Number [place], [place] Film Library- Storage Only DX Chest (05/15/2022 9:31 AM EDT) Specimen (Source) Anatomical Location Collection Method / Collectio n Time Received Time / Laterality Volume Narrative RAD - 05/15/2022 9:31 AM EDT This exam is auto-finalizing. It's purpo se is for storage only. Matt Branham MD Philippe FILM LIBRARY ORDERABLES Performing Organization Address City/[facility]/ZIP Code Phon e Number [place], [place] from Last 3 Months Insurance Payer Benefit Plan / Subscriber ID Effective Phone Address T ype Group Dates MEDICARE MEDICARE PART A [id number] 2007-Pres [phone] [place] [address] [facility] [id number] 2007-Pres [phone] [address] [employer] [address] [place] [address] (Home) [place] [address] Advance Directives Latest Code Status on File [...] capacity to make decision: Yes Care Teams Butcher Fish Relationship Specialty Start Date End Date Bobby Das MD PCP - General 10/02/[address] [place] [address] [place] [phone]
--- OUTSIDE RECORDS SUMMARY | 2022-06-28 11:06 | XMS_ITS | Encounter Summary ---
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 Loretta Cohen MD Leboeuf, Matthew R, MD [facility] [address] [address] [place] [address] Fax: Referral ID Status Reason Start Date Expiration Visits Visits Date Requested Authorized [id number] Authorized Consult, 06/17/2022 06/17/2023 1 1 Test & Treat Encounter Details Date Type Department Care Team Description 06/17/2022 Orders Only Dermatology at [facility] Amanda Basal cell carcinoma Nicol CARCAMO (BCC) of right [address] [place] [address] DERMATOLOGY [place], [place] [address] Social History Tobacco Use Types [...] Vascular Surgery Jing Ghosh APRN [facility] ER VASCULAR SURGERY [place], [place] [address] (Wo rk) 09/02/2022 Clinical Support Dermatology Thai Lynn MD [facility] DR JENNY BILLY-DERMAT [place], [place] [address] (Wo rk) 09/02/2022 Procedure visit Dermatology Jace Lynn MD [facility] DR JENNY BILLY-DERMAT [place], [place] [address] (Wo rk) 09/05/2022 Appointment Cardiology Trinity Reid MD [facility] CARDIOLOGY [place], [place] [address] (Wo rk) 09/05/2022 Office Visit Cardiology Trinity Reid MD [facility] CARDIOLOGY [place], [place] 0[address] (Wo rk) Scheduled Referrals Name Type Priority Associated Order Schedule Diagnoses Referral to Outpatient Referral Routine Basal cell Ordered: Dermatology carcinoma (BCC) of 2 right forehead documented as of this encounter Visit Diagnoses Diagnosis Basal cell carcinoma (BCC) of right fore head documented in this encounter Care Teams Chip Tuner Relationship Specialty Start Date End Date Bobby Das MD PCP - General 10/02/[address] [place] [address] [place] [phone] documented as of this encounter
--- OUTSIDE RECORDS SUMMARY | 2022-06-28 11:06 | XMS_ITS | Encounter Summary ---
:1940 [place] [address] Care Team Providers Name Role Phone Bobby Das MD Primary Care Provider Encounter Details Date Type Department Care Team Description 06/13/2022 Tech Visit Vascular Lab at [facility], Dominga [place] [address] Social History Tobacco Use Types Packs/Day [...] Jing Ghosh APRN [facility] DR VASCULAR SURGERY [place], [place] [address] (Wo rk) 09/02/2022 Clinical Support Dermatology Thai Lynn MD [facility] DR JENNY BILLY-DERMAT [place], [place] [address] (Wo rk) 09/02/2022 Procedure visit Dermatology Jace Lynn MD [facility] DR JENNY BILLY-DERMAT [place], [place] [address] (Rebekah rojas) 09/05/2022 Appointment Cardiology Trinity Reid MD [facility] DR CARDIOLOGY [place], [place] [address] (Wo rk) 09/05/2022 Office Visit Cardiology Trinity Reid MD [facility] ER CARDIOLOGY [place], [place] [address] (Wo rk) documented as of this encounter Procedures Procedure Name Priority Date/Time Associated Diagnosis Comme nts JOSSELYN, LEGS, MULTIPLE Routine 06/13/2022 7:13 AM Limb ischemia R esults for this LEVELS EDT procedure are i n the results section. documented in this encounter Results JOSSELYN, legs, multiple levels (06/13/2022 7:13 AM EDT) Component Value Ref Test Analysis Performed At [facility] Range Method Time Signature VB Text Department: Vascular Surgery Lab VASCUBASE Report Patient: [id number] (ETTA BAH) CPT: 15195 Referring Physician: FITO SUMMERS ?? Phone: Indications: s/p L PUBLIC RELATIONS INTERN endart. Diabetes mellitus: no Findings: Right ?Pressure [...] disorder documented in this encounter Care Teams Geographic Analyst Relationship Specialty Start Date End Date Bobby Das MD PCP - General 10/02/[address] [place] [address] [place] [phone] documented as of this encounter
--- OUTSIDE RECORDS SUMMARY | 2022-06-28 11:06 | XMS_ITS | Encounter Summary ---
:1940 Author Organization [facility] Address [facility] [place] [address] Care Team Providers Name Role Phone Bobby Das MD Primary Care Provider Encounter Details Date Type Department Care Team Description 05/31/2022 Office Visit Vascular Surgery at Jing Ghosh Di zzy; [facility] Atrial fibrillation, unspecified type; [facility] SOB (shortness of breath) Drive DR [place] VASCULAR SURGERY [phone] [place] [id number] [phone] Social History Tobacco Use Types Packs/Day Years [...] onset Afib who presents in transfer from [facility] with acute limb ischemia of the LLE.??The [...] emergently went to the OR for L BIOFUELS PRODUCT DEVELOPMENT MANAGER transverse arteriotomy and primary repair, thromboembolectomy of L SFA/PFA/BIOFUELS PRODUCT DEVELOPMENT MANAGER, reperfusion venous drainage for 250 cc, [...] ND, no palpable pulsatile masses Extremity - Byng, warm, no ulceration, brisk capillary refill, left [...] Vascular Surgery Jing Ghosh APRN [facility] ER DR VASCULAR SURGERY [place], [place] [address] (Wo rk) 09/02/2022 Clinical Support Dermatology Thai Lynn MD [facility] DR JENNY BILLY-DERMAT [place], [place] [address] (Wo rk) 09/02/2022 Procedure visit Dermatology Jace Lynn MD [facility] DR JENNY BILLY-DERMAT [place], [place] [address] (Wo rk) 09/05/2022 Appointment Cardiology Trinity Reid MD [facility] CARDIOLOGY [place], [place] [address] (Wo rk) 09/05/2022 Office Visit Cardiology Trinity Reid MD [facility] CARDIOLOGY [place], [place] [address] (Wo rk) documented as of this encounter Visit Diagnoses Diagnosis Dizzy Dizziness and giddiness Atrial fibrillation, unspecified type SOB (shortness of breath) Shortness of breath documented in this encounter Care Teams Surgical Scheduler Relationship Specialty Start Date End Date Bobby Das MD PCP - General 10/02/[address] [place] [address] [place] [phone] documented as of this encounter
--- OUTSIDE RECORDS SUMMARY | 2022-06-28 11:06 | XMS_ITS | Encounter Summary ---
:1940 Author Organization [facility] [place] [address] Care Team Providers Name Role Phone Bobby Das MD Primary Care Provider Encounter Details Date Type Department Care Team Description 06/19/2022 Telephone Cardiology at [facility] Kourtney Jimenez, RN [facility] [place] [address] Social History Tobacco Use Types Packs/Day [...] Zamora: Requesting a referral to Cardiac Rehab [facility] Forward to Dr Reid documented in this encounter Plan of Treatment Upcoming Encounters Date Type Specialty Care Team Description 07/02/2022 Office Visit Vascular Surgery Jing Ghosh APRN [facility] VASCULAR SURGERY [place], [place] [address] (Wo rk) 09/02/2022 Clinical Support Dermatology Thai Lynn MD [facility] ER DR JENNY BILLY-DERMAT [place], [place] [address] (Wo rk) 09/02/2022 Procedure visit Dermatology Jace Lynn MD [facility] DR JENNY BILLY-DERMAT [place], [place] [address] (Wo rk) 09/05/2022 Appointment Cardiology Trinity Reid MD [facility] CARDIOLOGY [place], [place] [address] (Wo rk) 09/05/2022 Office Visit Cardiology Trinity Reid MD [facility] CARDIOLOGY [place], [place] [address] (Wo rk) documented as of this encounter Visit Diagnoses Not on filedocumented in this encounter Care Teams Ethnology Teacher Relationship Specialty Start Date End Date Bobby Das MD PCP - General 10/02/[address] [place] [address] [place] [phone] documented as of this encounter
--- OUTSIDE RECORDS SUMMARY | 2022-06-28 11:06 | XMS_ITS | Encounter Summary ---
:1940 Author Organization [facility] [place] [address] Care Team Providers Name Role Phone Bobby Das MD Primary Care Provider Reason for Visit Auth/Cert Specialty Diagnoses / Procedures Referred By Contact Refer red To Contact Diagnoses GIB (gastrointestinal bleeding) Abe [facility] [place] [address] Referral ID Status Reason Start Date Expiration Date Visits Requ ested Visits Authorized [id number] 1 1 Encounter Details Date Type Department Care Team Description 05/31/2022 Anesthesia Event Gastro[place]ology [place] [facility] [place]mer Johnson MD [facility] [place] [address] [facility] Yogi Machado CRNA [facility] [place] [address] [place] [address] Anesthesia Record Procedure Summary Procedure Name [...] fossa)Angella RN Hunter, Alysia O, RN right; rwml-zok-txsvij catheter system; 20 gauge; no longer indicated, [...] Procedure Summary Date: 05/31/22 Room / Location: [facility] ENDO 3 / [facility] ENDOSCOPY Anesthesia Start: 1603 Anesthesia Stop: 1657 Procedures: EGD, UPPER GI ENDOSCOPY (N/A Trunk) EGD, W CONTROL OF BLEEDING, ANY METHOD Diagnosis: (melena) Surgeons: Giovani Ponce MD Responsible Provider: Elmer Johnson MD Anesthesia Type: MAC ASA Status: 3 All Anesthesia Providers: Anesthesiologist: Elmer Johnson MD HEALTHCARE ADMINISTRATIVE ASSISTANT: Yogi Dawkins CRNA Vitals Value Taken Time BP 95/62 05/31/22 1720 Temp Pulse Resp 18 05/31/22 1720 SpO2 99 % 05/31/22 1720 Pain Level 0 05/31/22 1720 Patient Location: PACU/[facility] Level of Consciousness: Awake and Alert Pain [...] IR Biopsy Spine 07/20/2019 Bobby Marshall MD [facility] INTERVENTIONL RAD ??? IR VERTEBROPLASTY LUMBAR MULTIPLE LEVELS 07/20/2019 IR Vertebroplasty Lumbar Multiple Levels 07/20/2019 Bobby Marshall MD [facility] INTERVENTIONL RAD ??? IR VERTEBROPLASTY THORACIC SINGLE LEVEL 10/25/2020 IR Vertebroplasty Thoracic Single Level 10/25/2020 Matt Chisholm MD [facility] INTERVENTIONL RAD ??? PRO EMBLC/THRMBC FEMORAL POPLITEAL AORTO-ILIAC ARTERY Left 05/15/2022 EMBOLECTOMY OR THROMBECTOMY, FEMOROPOPLITEAL, AORTOILIAC ARTERY BY LEG INCISION (WRVU 19.48) performed by Fito Smumers MD at [facility] MAIN OR ??? PRO UPPER GI ENDOSCOPY, CTRL BLEED 05/31/2022 EGD, W CONTROL OF BLEEDING, ANY METHOD performed by Giovani Ponce MD at [facility] ENDOSCOPY ??? PRO UPPER GI ENDOSCOPY, DIAGNOSTIC N/A 05/31/2022 EGD, UPPER GI ENDOSCOPY performed by Giovani Ponce MD at [facility] ENDOSCOPY Social History Tobacco Use ??? [...] risks discussed with patient. Plan discussed with HEALTHCARE ADMINISTRATIVE ASSISTANT. Anesthesia Screening documented in this encounter Plan of Treatment Upcoming Encounters Date Type Specialty Care Team Description 07/02/2022 Office Visit Vascular Surgery Jing Ghosh, EQUITIES ANALYST [facility] VASCULAR SURGERY [place], [place] [address] (Wo rk) 09/02/2022 Clinical Support Dermatology Thai Lynn MD [facility] DR JENNY BILLY-DERMAT [place]LOGY [place], [place] [address] (Wo rk) 09/02/2022 Procedure visit Dermatology Jace Lynn MD [facility] DR JENNY BILLY-DERMAT [place], [place] [address] (Wo rk) 09/05/2022 Appointment Cardiology Trinity Reid MD [facility] [place], [place] [address] (Wo rk) 09/05/2022 Office Visit Cardiology Trinity Reid MD [facility] CARDIOLOGY [place], [place] [address] (Wo rk) documented as of [...] mg documented in this encounter Care Teams Labor Trainer Relationship Specialty Start Date End Date Bobby Das MD PCP - General 10/02/[address] [place] [address] [place] [address] documented as of this encounter
--- OUTSIDE RECORDS SUMMARY | 2022-06-28 11:06 | XMS_ITS | Encounter Summary ---
:1940 Author Organization [facility] [place] [address] Care Team Providers Name Role Phone Bobby Das MD Primary Care Provider Reason for Visit Reason Comments Skin Lesion Consultation (Routine) - Closed Specialty Diagnoses / Procedures Referred By Contact Refer red To Contact Dermatology Diagnoses Lesion on right eye = hx of skin cancer Bobby Das MD [facility] Dermatology Procedures Lesion on right eye = hx of skin cancer [address] [facility] [address] [place] [address] [place] [address] Fax: Referral ID Status Reason Start Date Expiration Date Visits Requ ested Visits Authorized [id number] Closed 04/22/2022 04/22/2023 1 1 Encounter Details Date Type Department Care Team Description 06/10/2022 Office Visit Dermatology at [facility], Neoplasm of Road unspecified behavior [address] [facility] [place] [address] [address] and skin [phone] DERMATOLOGY [place] [address] Social History Tobacco Use Types Packs/Day Years [...] nevi N SCC N BCC 2015: right protestant, BCC s/p mohs 09/2018: right eyebrow, BCC [...] N/A RTC: Pending pathology []Note routed to corporation secretary []Recall placed in scheduling system []Appointment scheduled at checkout Scribe attestation: Sidney Higgins and Loretta Gomez CMA performed the documentation for this encounter in the presence of and acting as a scribe for Noel Burgos MD. I performed the above scribed service and agree with the accuracy of the documentation in this encounter. Reviewed and signed by: Noel Burgos MD Dermatology [facility] Loretta Cohen MD - 06/10/2022 11:00 AM EDT DERMATOLOGY TELEPHONE NOTE Koko Zamora 06/17/2022 [id number] Reason for call: Discuss biopsy results I [...] 07/02/2022 Office Visit Vascular Surgery Jing Ghosh, RESIDENT ASSOCIATE [facility] VASCULAR SURGERY [place], [place] [address] (Rebekah rojas) 09/02/2022 Clinical Support Dermatology Thai Lynn MD [facility] DR JENNY BROWN-DERMAT OLOGY [place], [place] [address] (Rebekah rojas) 09/02/2022 Procedure visit Dermatology Jace Lynn MD [facility] DR JENNY BROWN-DERMAT OLOGY [place], [place] [address] (Wo rk) 09/05/2022 Appointment Cardiology Trinity Reid MD [facility] CARDIOLOGY [place], [place] [address] (Wo rk) 09/05/2022 Office Visit Cardiology Trinity Reid MD [facility] CARDIOLOGY [place], [place] [address] (Wo rk) documented as of this encounter [...] PM 2 1:20 EDT PM EDT Narrative [facility] - 06/10/2022 1:20 PM EDT Specimen requisition ordered. ??Separate Pathology report to follow Loretta Cohen MD PATHOLOGY/CYTOLOGY ORDERABLE S Performing Organization Address City/State/[place] [address] Surgical Pathology Report (06/10/2022 11:43 AM EDT) Component Value Ref Test Analysis Performed At Patholo gist Range Method Time Signature Surgical [id number] ? Location: [facility] Report The signing pathologist has (i) examined the relevant preparation(s) for the [facility] specimen(s) and (ii) rendered or confirmed the diagnosis(es) . HOSPITAL LAB[facility]ORY . ?Surgic al Pathology DIAGNOSIS Right lateral eyebrow, skin shave biopsy: - ??Basal cell carcinoma, no dular pattern, transected at the peripheral and deep specimen edges Electronically signed by: ?Delroy CARCAMO, PhD, Daltonregi Verified: ??06/12/2022 14:33 ??Dermatopathologist Performed at: ??-[facility] Dept. of Pathology, [place], [place] SPECIMEN(S) SUBMITTED A - right lateral [...] Organization Address City/State/[place] [address] [facility] documented in this encounter Visit Diagnoses Diagnosis Neoplasm of unspecified behavior of bone , soft tissue, and skin documented in this encounter Care Teams Large Animal Veterinarian Relationship Specialty Start Date End Date Bobby Das MD PCP - General 10/02/[address] [place] [address] [place] [address] documented as of this encounter
--- OUTSIDE RECORDS SUMMARY | 2022-06-28 11:06 | XMS_ITS | Encounter Summary ---
:1940 [place] [address] Care Team Providers Name Role Phone Abby Das MD Primary Care Provider Reason for Visit Reason Comments Dizziness Auth/Cert Specialty Diagnoses / Procedures Referred By Contact Refer red To Contact Diagnoses GIB (gastrointestinal bleeding) Abe [facility] [place] [address] Referral ID Status Reason Start Date Expiration Date Visits Requ ested Visits Authorized [id number] 1 1 Encounter Details Date Type Department Care Team Description 05/31/2022 - Hospital Encounter Intermediate Special Dixon Hinds MD [facility] [place] [address] GIB 06/02/2022 Care [place] [address] (gastrointestinal [facility] [place] [address] bleeding) ([facility] [place] [address] Dx) [place] [address] Social History Tobacco Use Types Packs/Day Years [...] Valle MD - 06/02/2022 12:48 PM EDT [facility] Medicine - Discharge Summary Patient [...] switching to a different bloodthinner with the electron beam operator outpatient. Call your doctor or seek medical [...] switchingto a different blood thinner with your electron beam operator as an outpatient Stopped Medications - Aspirin - Valsartan - Speak with your electron beam operator about the timing of restarting this Follow-up Appointments Future Appointments Date Time Provider Department Center 06/10/2022 11:00 AM Loretta Cohen MD [facility] 06/13/2022 7:30 AM Edson Lagos [place] [facility] VAS LAB [facility] 06/13/2022 8:00 AM Fito Summers MD [facility] V SURG [facility] 06/13/2022 10:00 AM Alan Reid MD [address] Your Inpatient Medical Team at [facility] Name(s) of your inpatient provider(s): Dr. John Ames For questions regarding issues relating to your hospitalization on the Hospital Medicine Service, please contact your inpatient physician through the [facility] Casino Manager [phone]. Issues after hours and on weekends will be handled by the Hospitalist staff on-call. Your Primary Care Provider Abby Das MD [phone] Future Appointments and Orders Future Appointments and Orders Future Appointments Provider Department Dept Phone 06/10/2022 11:00 AM Loretta Cohen MD Dermatology [facility] Arrive at: Charge Weigher [address] [place] [phone] 06/13/2022 7:30 AM Edson [place]os [place] Vascular Lab at [facility] Arrive at: Charge Weigher Area [phone] 06/13/2022 8:00 AM Fito Summers MD Vascular Surgery at [facility] Arrive at: Charge Weigher Area 06/13/2022 10:00 AM Alan Reid MD Cardiology at [facility] Arrive at: Charge Weigher Area [phone] For questions regarding this document or issues relating to this hospitalization on the Medical Service, please contact your inpatient physician through the [facility] Casino Manager . Issues after hours and on weekends [...] switching to a different bloodthinner with the electron beam operator outpatient. Call your doctor or seek medical [...] switchingto a different blood thinner with your electron beam operator as an outpatient Stopped Medications - Aspirin - Valsartan - Speak with your electron beam operator about the timing of restarting this Follow-up Appointments Future Appointments Date Time Provider Department Center 06/10/2022 11:00 AM Loretta Cohen MD [facility] 06/13/2022 7:30 AM Edson [place]os [place] [facility] VAS LAB ILDA POWELL 06/13/2022 8:00 AM Fito Summers MD [facility] V SURG [facility] 06/13/2022 10:00 AM Alan Reid MD [facility] CARD 4A [facility] Your Inpatient Medical Team at [facility] Name(s) of your inpatient provider(s): Dr. John Ames For questions regarding issues relating to your hospitalization on the Hospital Medicine Service, please contact your inpatient physician through the [facility] Casino Manager [phone]. Issues after hours and on weekends will be handled by the Hospitalist staff on-call. Your Primary Care Provider Abby Das MD [phone] documented in this encounter Medications at Time [...] 04/12/20 21 (FLONASE) 50 mcg/actuation Nare route [place], Suspension daily as needed. fluorouraciL (EFUDEX) 5 [...] documented as of this encounter Progress Notes Sharmila Valenzuela MD - 06/02/2022 3:02 PM EDT A request for block release of 3 units of group O uncrossmatched red blood cells was made to the blood bank for this patient on 05/31/2022 at 1354. PHYSICIAN ATTESTATION: Uncrossmatched blood is required due to the emergency nature of the clinical situation. I UNDERSTAND THE RISK OF COMPLICATIONS RELATED TO THE USE OF UNCROSSMATCHED BLOOD, AND HAVE DETERMINED [I AGREE] THAT THE USE OF SUCH BLOOD IS IMMEDIATELY NECESSARY TO PROTECT THE HEALTH OF THE PATIENT. This attestation covers the use of all uncrossmatched red blood cells during this encounter, until acurrent type and screen specimen is tested and the patient is switched to crossmatch compatible blood. John Jolley MD - 06/02/2022 2:53 PM [...] spent >30 minutes (Day of Discharge Code 16163) involved in the final examination of the [...] were not included. Hospital Medicine Progress Note [place] Team - Pager #[phone] Admit Date: 05/31/2022 Name: Koko Zamora : [...] cardiology to discuss antiplatelet (ISO bleed and [facility]), following. ?? #CAD s/p stenting recently #HFrEF [...] Kurt Ames MD Internal Medicine, PGY-1 Medicine [place] Team #[id number] Associated attestation - John Jolley MD - 06/01/2022 5:02 PM EDT [facility] Medicine -- Attending Progress Note Please see [...] of two midnights or is on the [facility] inpatient only procedure list (status C) due to: GI Bleeding documented in this encounter H&P Notes Mahendra Victor MD - 05/31/2022 4:33 PM EDT Images from the original note were not included. [facility] Medicine (#[id number]) History and Physical Patient info: Name: Koko Zamora : 1940 PCP: Abby Das MD PCP phone number: [phone] Date of Admission: 05/31/2022 ( Hospital Day [...] IR Biopsy Spine 07/20/2019 Abby Marshall MD [facility] INTERVENTIONL RAD ??? IR VERTEBROPLASTY LUMBAR MULTIPLE LEVELS 07/20/2019 IR Vertebroplasty Lumbar Multiple Levels 07/20/2019 Abby Marshall MD [facility] INTERVENTIONL RAD ??? IR VERTEBROPLASTY THORACIC SINGLE LEVEL 10/25/2020 IR Vertebroplasty Thoracic Single Level 10/25/2020 Matt Chisholm MD [facility] INTERVENTIONL RAD ??? PRO EMBLC/THRMBC FEMORAL POPLITEAL AORTO-ILIAC ARTERY Left 05/15/2022 EMBOLECTOMY OR THROMBECTOMY, FEMOROPOPLITEAL, AORTOILIAC ARTERY BY LEG INCISION (WRVU 19.48) performed by Fito Summers MD at [facility] MAIN OR No family history [...] 11 ??? fluticasone propionate (FLONASE) 50 mcg/actuation [place], Suspension as needed. ??? fluorouraciL (EFUDEX) 5 [...] 1,077* -- Endocrine: Recent Labs 05/31/22 1120 05/18/221999 TSH 1.67 2.27 No results for input(s): HA1C in the last 7068 hours. Heme: No results for input(s): LDH, HAPTOGLOBIN, URICACID in the last 168 hours. ABG: ABG (Arterial Blood Gas) No results found for: PHART, PO2ART, DHR7AYP, OUZ7AMV Microbiology: N/A Pertinent radiology/diagnostic studies: Recent prior [...] Status: Full Arpita Valle MD, PGY-3 05/31/2022 [facility] Medicine # [id number] Attending Staff Admission Documentation I have examined [...] 05/31/2022 3:58 PM EDT Norepinephrine pulled from [facility] for soft BPs. Upon arrival to [...] AM EDT Pt brought to XR by radio script writer Brittany Ramirez MD - 05/31/2022 10:40 AM [...] compartment fasciotomies) with hospitalization complicated by needing C now s/p DESx1, and transient episode of [...] who have questions please contact the health critical care unit nurse that requested your imaging first. Chest PA [...] who have questions please contact the health critical care unit nurse that requested your imaging first. Course as [...] of the LLE with admission complicated by C s/p DESx1 and transient episode of new [...] recommendations from Brittany Tavares MD Resident 05/31/22 [id number] Associated attestation - Regina Hinds MD - [...] soft blood pressures, MD made aware. LBM METHOD CONSULTANT. 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 Patient reported blurry/hazy [...] Heparin gtt - plan [facility] Discharge planning Increase strength & mobility INDIVIDUALIZED [...] original note were not included. [facility] NA[place] P[place] [phone] INPATIENT CARDIOLOGY CONSULT NOTE Date of Consultation: 06/01/2022 Admit Date: 05/31/2022 Place of Service: IS86/IS86-A Referring Attending: REGINA HINDS COLEMAN W FRIEDMAN, HARLEY P Responsible Skein Yarn Drier: Dr. Rizo Hospital Day 1 day Reason [...] LCX and LCx stent) who presented to [facility] on 05/31/2022 for GI bleed. Patient presented [...] IR Biopsy Spine 07/20/2019 Abby Marshall MD [facility] INTERVENTIONL RAD ??? IR VERTEBROPLASTY LUMBAR MULTIPLE LEVELS 07/20/2019 IR Vertebroplasty Lumbar Multiple Levels 07/20/2019 Abby Marshall MD [facility] INTERVENTIONL RAD ??? IR VERTEBROPLASTY THORACIC SINGLE LEVEL 10/25/2020 IR Vertebroplasty Thoracic Single Level 10/25/2020 Matt Chisholm MD [facility] INTERVENTIONL RAD ??? PRO EMBLC/THRMBC FEMORAL POPLITEAL AORTO-ILIAC ARTERY Left 05/15/2022 EMBOLECTOMY OR THROMBECTOMY, FEMOROPOPLITEAL, AORTOILIAC ARTERY BY LEG INCISION (WRVU 19.48) performed by Fito Summers MD at [facility] MAIN OR ALLERGIES: Allergies Allergen [...] time ??? fluticasone propionate (FLONASE) 50 mcg/actuation [place], Suspension 1 spray by Each Nare route [...] %] Intake/Output Summary (Last 24 hours) at 06/01/20221924 Last data filed at 06/01/2022 1614 Gross per 24 hour Intake 811 ml Output 1300 ml Net -489 ml Wt & BMI By Encounter Date Flowsheet Row ED to Hosp-Admission (Current) from 05/31/2022 in Intermediate Special Care Unit [facility] ED to Hosp-Admission (Discharged) from 05/15/2022 in Intermediate Cardiac Care Unit [facility] Weight 77.1 kg (170 lb) 1 05/31/2022 [...] Neurology: Without focal deficit ECG: Echocardiogram: 05/16/2022 [facility] 05/20/2022 Coronary Angiography: Dominance: Right Left [...] 3.5 guiding catheter and a 3.5 Fr [facility] [place] [facility] 20 Mhz. Imaging was successful. Image [...] A premounted 2.75 x 30 mm Rudy [place] (AMPARO) was deployed with a maximum inflation [...] may require modification of this regimen. Consult [facility] Interventional Cardiology for questions. The 1 year [...] Hb drop. Unknown source. has had a [facility] with stent placed and revascularization of [...] who have questions please contact the health critical care unit nurse that requested your imaging first. [place] 48 [...] who have questions please contact the health critical care unit nurse that requested your imaging first. Recent Labs [...] on xarelto, ischemic systolic heart failure (recent [facility] 05/20/2022 with 2V disease OM1 and distal RCA, had ostial LCX and LCx stent), recent admission for acutelimb ischemia LLE, where he had left common femoral transverse arteriotomy and primary repair, thromboembolectomy of the SFA, profunda and common femoral artery with 4 compartment fasciotomies, who presented to [facility] on 05/31/2022 for GI bleed. Cardiology consulted [...] attestation for additional insight. Rossy Anaya MD [facility] Bankruptcy Attorney, PGY-5 Inpatient Cardiology Consults Pager #[phone] Please check Qgenda for on-call cardiology consults [...] A&Ox 4. On room air. VSS. LBM: METHOD CONSULTANT. Adequate urine output, urinal at bedside, flomax [...] surrogate would be surrogate decision maker per [place] surrogate decision making law. (Only good for 180 days) Any patient receiving care in [place] must abide by [place] law. The hierarchy for surrogate decision making [...] (i) The agent with financial power of traffic law attorney or a conservator appointed in [...] walker - rolling Home Address confirmed as: [address] [place] [phone] Social & Family Supports: All names listed below confirmed with patient as current and correct Extended Emergency Contact Information Primary Emergency Contact: Ursula Zamora Address: [address] [place] [phone] [employer] Relation: Spouse Current Care Provided by: self [...] Type: *No Product type* / Secondary Insurance: [facility] Secondary Insurance? (Only Medicare A&B): Yes ; Prescription Coverage: Yes Preferred Pharmacy: [id number] - [facility], [place] - [address] [facility] [address] [facility] [address] [facility] [id number] Status: Patient is a : No Primary Care Provider: Abby Das MD [phone] Patient/Caregiver Goals of Treatment: Patient plans to [...] with transition of care planning. ASH Garcia Paralegal Supervisor [facility] Medicine/ Medical Specialties Pager- [phone] Plan [...] see results. ~0100 hypotensive, 90/62, recheck 89/53, aware, no new orders. Held 0600 metoprolol [...] OUTCOME EVALUATION: Consult Note - Lonnie Good RPH - 05/31/2022 9:42 PM EDT TelePharmacy Home Medication List Update for Medication Reconciliation 05/31/22 9:43 PM Koko Sullivan Sera 1940 Allergies Allergen Reactions ??? Aspirin Other [...] Pharmacist at for any questions. Lonnie Good RPH Op Note - Giovani Ponce MD - 05/31/2022 4:30 PM EDT DH Operative Note Patient Name: Koko Rioson : [id number] MR#: [id number] Case Date: 05/31/2022 Surgeon: Surgeon(s) and Role: [...] stomach. He has had colonoscopies before in [place] - notes first ever he had 6 polyps removed but last colo 5 yrs ago was normal. He lives in [facility]. Currently light-headedness is improved. No fevers, [...] IR Biopsy Spine 07/20/2019 Abby Marshall MD [facility] INTERVENTIONL RAD ??? IR VERTEBROPLASTY LUMBAR MULTIPLE LEVELS 07/20/2019 IR Vertebroplasty Lumbar Multiple Levels 07/20/2019 Abby Marshall MD [facility] INTERVENTIONL RAD ??? IR VERTEBROPLASTY THORACIC SINGLE LEVEL 10/25/2020 IR Vertebroplasty Thoracic Single Level 10/25/2020 Matt Chisholm MD [facility] INTERVENTIONL RAD ??? PRO EMBLC/THRMBC FEMORAL POPLITEAL AORTO-ILIAC ARTERY Left 05/15/2022 EMBOLECTOMY OR THROMBECTOMY, FEMOROPOPLITEAL, AORTOILIAC ARTERY BY LEG INCISION (WRVU 19.48) performed by Fito Summers MD at [facility] MAIN OR SOCIAL HX: Social [...] sounds, tympanic to percussion RECTAL: performed with meat process worker present, no overt masses, fissures, external hemorrhoids, [...] who have questions please contact the health critical care unit nurse that requested your imaging first. Abdomen [...] Ghosh, HIRAL [facility] VASCULAR SURGERY [place], [place] [address] (Rebekah rojas) 09/02/2022 Clinical Support Dermatology Thai Lynn MD [facility] DR JENNY BILLY-DERMAT OLOGY [place], [place] [address] (Wo rk) 09/02/2022 Procedure visit Dermatology Jaec Lynn MD [facility] MEDICAL CENT ER DR JENNY BILLY-DERMAT [facility] [place], [place] [address] (Wo rk) 09/05/2022 Appointment Cardiology Trinity Reid MD [facility] ER CARDIOLOGY [place], [place] [address] (Wo rk) 09/05/2022 Office Visit Cardiology Trinity Reid MD [facility] ER CARDIOLOGY [place], [place] [address] (Wo rk) documented as of [...] EDT) athologist Signature Neutrophils % 61.3 % [facility] LABORATORY Neutr Abs (ANC) 4.44 1.70 - [facility] 6.10 [facility] x10(3)/[facility] LABORATORY Lymphocytes % 25.2 % [facility] LABORATORY Lymphocytes Abs 1.8 0.9 - 3.2 [facility] x10(3)/[facility] LABORATORY Monocytes % 10.0 % [facility] LABORATORY Monocyte Abs 0.7 0.3 - 0.9 [facility] x10(3)/[facility] LABORATORY Eosinophils % 2.1 % [facility] LABORATORY Eosinophils Abs 0.2 0.0 - 0.4 [facility] x10(3)/[facility] LABORATORY Basophils % 0.7 % [facility] LABORATORY Basophils Abs 0.0 0.0 - 0.1 [facility] x10(3)/[facility] LABORATORY Immature Gran % 0.70 % [facility] LABORATORY Comment: Immature granulocytes(IG's)percentage an d absolute count will include metamyelocytes, myelocytes, and promyelo cytes. Blood smears from CBCs yielding IG's will be scanned manually for tracy armstrong. If this scan disagrees with the automated IG or if promyelocytes are not ed, a manual differential will be performed. Rain Gran Abs 0.05 (H) 0.00 - 0.04 x10(3)/[facility] LABORATORY Specimen Anatomical Collection Method Collection Time Receive d Time (Source) Location / / Volume Laterality Blood 06/02/2022 8:20 AM 8:25 EDT AM EDT Resulting Agency Comment Spec In Lab Kurt Ames MD HEMATOLOGY ORDERABLES Performing Organization Address City/State/ZIP [place] [address] (ABNORMAL) Hemogram (06/02/2022 8:20 AM EDT) Analysis Performed At Patho logist Time Signature WBC 7.2 4.0 - 9.5 [facility] x10(3)/[facility] LABORATORY RBC 2.74 (L) 4.58 - [facility] 5.54 [facility] x10(6)/[facility] LABORATORY Hemoglobin 8.7 (L) 13.7 - [facility] 16.5 g/dL [facility] LABORATORY Hematocrit 25.7 (L) 40.5 - [facility] 48.5 % [facility] LABORATORY MCV 93.8 (H) 82.9 - [facility] 93.1 [facility] LABORATORY MCH 31.8 27.5 [facility] 32.1 pg [facility] LABORATORY MCHC 33.9 32.0 - [facility] 35.7 g/dL [facility] LABORATORY Platelets 260 145 - 357 [facility] x10(3)/[facility] LABORATORY RDWSD 51.0 (H) 36.0 - [facility] 45.0 [facility] LABORATORY RDWCV 14.9 (H) 11.4 - [facility] 13.8 % [facility] LABORATORY MPV 10.0 7.6 - 12.9 [facility] LABORATORY nRBC % Auto 0.0 % [facility] LABORATORY nRBC Abs Auto 0.000 0.000 - ILDA HAGEN 0.000 [facility] x10(3)/[facility] LABORATORY Specimen Anatomical Collection Method Collection Time Receive d Time (Source) Location / / Volume Laterality Blood 06/02/2022 8:20 AM 2 8:25 EDT AM EDT Resulting Agency Comment Spec In Lab Kurt Ames MD HEMATOLOGY ORDERABLES Performing Organization Address City/[facility]/ZIP [place] [address] [facility] [address] Heparin (unfractionated) Level (06/02/2022 6:30 AM EDT) P athologist Signature Heparin UFH 0.39 IU/mL [facility] LABORATORY Comment: Heparin (anti-Xa) levels should [...] Victor MD HEMATOLOGY ORDERABLES Performing Organization Address City/[facility]/ZIP [place] [address] Heparin (unfractionated) Level (06/02/2022 12:30 AM EDT) P athologist Signature Heparin UFH 0.81 IU/mL [facility] LABORATORY Comment: Heparin (anti-Xa) levels should [...] Victor MD HEMATOLOGY ORDERABLES Performing Organization Address City/[facility]/ZIP Code Phon e Number [address] Magnesium (06/02/2022 12:30 AM EDT) athologist Signature Magnesium 0.83 0.69 - 1.07 [facility] mmol/L [facility] LABORATORY Specimen Anatomical Collection Method Collection Time Receive d Time (Source) Location / / Volume Laterality Blood 06/02/2022 12:30 06/02/2022 AM EDT 12:40 AM EDT Resulting Agency Comment Spec In Lab Mahendra Victor MD CHEMISTRY ORDERABLES Performing Organization Address City/[facility]/[place] [address] (ABNORMAL) Basic Metabolic Panel (non-fasting) (06/02/2022 12:30 AM EDT) P athologist Signature Glucose Lvl 151 65 - 199 [facility] mg/dL [facility] LABORATORY Comment: Diabetes: >=200 mg/dL plus symp toms BUN 12 10 - 20 mg/dL [facility] LABORATORY Creatinine 0.71 (L) 0.80 - 1.50 mg/dL [facility] LABORATORY Sodium 142 135 - 145 mmol/L [facility] LABORATORY Potassium 3.8 3.5 - 5.0 mmol/L [facility] LABORATORY Comment: Please note: ??Patients with WBC >100,00 0 may have falsely elevated Potassium levels. ??For accurate Potassium quantif ication in these patients send serum separator tube (gold top) for subsequent determinations. ??Contact the Clinical Chemistry Laboratory if there are any qu estions. Chloride 108 (H) 98 - 107 mmol/L [facility] LABORATORY CO2 24 22 - 31 mmol/L [facility] LABORATORY Anion Gap 10 5 - 15 mmol/L [facility] LABORATORY Calcium 8.1 (L) 8.5 - 10.5 mg/dL [facility] LABORATORY Estimated GFR 93 >=60 mL/min/1.73 m?? [facility] LABORATORY Comment: This patient's estimated [...] Organization Address City/State/ZIP [place] [address] (ABNORMAL) Differential, Automated (06/01/2022 7:29 PM EDT) P athologist Signature Neutrophils % 68.8 % [facility] LABORATORY Neutr Abs (ANC) 5.34 1.70 - [facility] 6.10 [facility] x10(3)/[facility] LABORATORY Lymphocytes % 19.6 % [facility] LABORATORY Lymphocytes Abs 1.5 0.9 - 3.2 [facility] x10(3)/[facility] LABORATORY Monocytes % 8.1 % [facility] LABORATORY Monocyte Abs 0.6 0.3 - 0.9 [facility] x10(3)/[facility] LABORATORY Eosinophils % 1.8 % [facility] LABORATORY Eosinophils Abs 0.1 0.0 - 0.4 [facility] x10(3)/[facility] LABORATORY Basophils % 0.8 % [facility] LABORATORY Basophils Abs 0.1 0.0 - 0.1 [facility] x10(3)/[facility] LABORATORY Immature Gran % 0.90 % [facility] LABORATORY Comment: Immature granulocytes(IG's)percentage an d absolute count will include metamyelocytes, myelocytes, and promyelo cytes. Blood smears from CBCs yielding IG's will be scanned manually for concor dance. If this scan disagrees with the automated IG or if promyelocytes are not ed, a manual differential will be performed. Rain Gran Abs 0.07 (H) 0.00 - 0.04 x10(3)/[facility] LABORATORY Specimen Anatomical Collection Method Collection Time Receive d Time (Source) Location / / Volume Laterality Blood 06/01/2022 7:29 PM 7:29 EDT PM EDT Resulting Agency Comment Spec In Lab Kurt Ames MD HEMATOLOGY ORDERABLES Performing Organization Address City/State/ZIP [place] [address] (ABNORMAL) Hemogram (06/01/2022 7:29 PM EDT) Analysis Performed At Patho logist Time Signature WBC 7.8 4.0 - 9.5 [facility] x10(3)/[facility] LABORATORY RBC 2.65 (L) 4.58 [facility] 5.54 [facility] x10(6)/[facility] LABORATORY Hemoglobin 8.3 (L) 13.7 - [facility] 16.5 g/dL [facility] Hematocrit 24.8 (L) 40.5 - [facility] 48.5 % [facility] MCV 93.6 (H) 82.9 - ILDA HAGEN 93.1 [facility] LABORATORY MCH 31.3 27.5 - ILDA POWELLCK 32.1 pg [facility] MCHC 33.5 32.0 - ILDA HAGEN 35.7 g/dL [facility] Platelets 263 145 - 357 ILDA WHEATLEYXIAO x10(3)/[facility] LABORATORY RDWSD 52.8 (H) 36.0 - ILDA HAGEN 45.0 [facility] LABORATORY RDWCV 15.4 (H) 11.4 - [facility] XIAO 13.8 % [facility] MPV 10.4 7.6 - 12.9 [facility] LABORATORY nRBC % Auto 0.0 % [facility] nRBC Abs Auto 0.000 0.000 - ILDA XIAO 0.000 [facility] x10(3)/[facility] LABORATORY Specimen Anatomical Collection Method Collection Time Receive d Time (Source) Location / / Volume Laterality Blood 06/01/2022 7:29 PM 7:29 EDT PM EDT Resulting Agency Comment Spec In Lab Kurt Ames MD HEMATOLOGY ORDERABLES Performing Organization Address City/State/ZIP [place] [address] Heparin (unfractionated) Level (06/01/2022 7:29 PM EDT) P athologist Signature Heparin UFH 0.81 IU/mL [facility] LABORATORY Comment: Heparin (anti-Xa) levels should [...] Victor MD HEMATOLOGY ORDERABLES Performing Organization Address City/[facility]/[place] [address] (ABNORMAL) Heparin (unfractionated) Level (06/01/2022 11:32 AM EDT) [facility] Method Time Signature Heparin UFH 1.05 IU/mL [facility] (Critical) [facility] Comment: Critical Result called by ?? [...] Victor MD HEMATOLOGY ORDERABLES Performing Organization Address City/[facility]/ZIP Code Phon e Number [address] (ABNORMAL) Differential, Automated (06/01/2022 5:56 AM EDT) [facility] Method Time Signature Neutrophils % 62.7 % [facility] LABORATORY Neutr Abs (ANC) 6.11 (H) 1.70 - [facility] 6.10 [facility] x10(3)/[facility] L LABORATORY Lymphocytes % 23.5 % [facility] Lymphocytes Abs 2.3 0.9 - 3.2 [facility] x10(3)/[facility] LABORATORY Monocytes % 10.0 % [facility]ORY Monocyte Abs 1.0 (H) 0.3 - 0.9 [facility] x10(3)/[facility] LABORATORY Eosinophils % 2.2 % [facility] Eosinophils Abs 0.2 0.0 - 0.4 [facility] x10(3)/[facility] LABORATORY Basophils % 0.9 % [facility]ORY Basophils Abs 0.1 0.0 - 0.1 [facility] x10(3)/[facility] LABORATORY Immature Gran % 0.70 % [facility]ORATORY Comment: Immature granulocytes(IG's)percentage an d absolute count will include metamyelocytes, myelocytes, and promyelo cytes. Blood smears from CBCs yielding IG's will be scanned manually for concor dance. If this scan disagrees with the automated IG or if promyelocytes are not ed, a manual differential will be performed. Rain Gran Abs 0.07 (H) 0.00 - 0.04 x10(3)/[facility] LABORATORY Specimen Anatomical Collection Method Collection Time Receive d Time (Source) Location / / Volume Laterality Blood 06/01/2022 5:56 AM 6:05 EDT AM EDT Resulting Agency Comment Spec In Lab Arpita Valle MD HEMATOLOGY ORDERABLES Performing Organization Address City/State/ZIP [place] [address] (ABNORMAL) Hemogram (06/01/2022 5:56 AM EDT) Analysis Performed At Patho logist Time Signature WBC 9.7 (H) 4.0 - 9.5 [facility] x10(3)/[facility] LABORATORY RBC 2.83 (L) 4.58 - [facility] 5.54 [facility] x10(6)/[facility] LABORATORY Hemoglobin 9.0 (L) 13.7 - ILDA XIAO 16.5 g/dL [facility] Hematocrit 26.7 (L) 40.5 - ILDA ONEILCOCK 48.5 % [facility] MCV 94.3 (H) 82.9 - ILDA WHEATLEYXIAO 93.1 [facility] LABORATORY MCH 31.8 27.5 - ILDA WHEATLEYXIAO 32.1 pg [facility] MCHC 33.7 32.0 - ILDA ONEILCOCK 35.7 g/dL [facility] Platelets 250 145 - 357 [facility] x10(3)/[facility] LABORATORY RDWSD 54.3 (H) 36.0 - ILDA WHEATLEYXIAO 45.0 [facility] LABORATORY RDWCV 15.9 (H) 11.4 - [facility] XIAO 13.8 % [facility] MPV 10.5 7.6 - 12.9 [facility] LABORATORY nRBC % Auto 0.0 % [facility] LABORATORY nRBC Abs Auto 0.000 0.000 - ILDA XIAO 0.000 [facility] x10(3)/[facility] LABORATORY Specimen Anatomical Collection Method Collection Time Receive d Time (Source) Location / / Volume Laterality Blood 06/01/2022 5:56 AM 6:05 EDT AM EDT Resulting Agency Comment Spec In Lab Arpita Valle MD HEMATOLOGY ORDERABLES Performing Organization Address City/State/Z[place] [address] Heparin (unfractionated) Level (06/01/2022 4:30 AM EDT) P athologist Signature Heparin UFH 0.68 IU/mL [facility] LABORATORY Comment: Heparin (anti-Xa) levels should [...] Organization Address City/State/ZIP [place] [address] (ABNORMAL) Urinalysis with reflex Culture (06/01/2022 4:00 AM EDT) [facility] Method Time Signature Glucose UA 500 Negative [facility] (Critical) mg/dL [facility] Comment: Urinalysis result NOT critical without a combination of Glucose greater than or equal to 500 mg/dL AND Ketones greate r than or equal to 80 mg/dL Protein UA Negative Negative mg/dL [facility] Bilirubin UA Negative Negative mg/dL [facility] Comment: Clinical correlation required for positi ve Urine Bilirubin results as false positive may occur with some drugs and d rug related products. If a false positive is suspected a serum total bili quarles should be considered if clinically indicated. Urobilinogen UA Normal Normal mg/dL [facility] pH UA 6.0 5.0 - 8.0 [facility]ORY Blood UA Negative Negative mg/dL [facility]ORY Ketones UA Negative Negative mg/dL [facility] Nitrite UA Negative Negative [facility] Leukocytes UA Negative Negative [facility] LABORATORY Appearance UA Clear Clear [facility] Spec [place] UA >=1.030 (A) 1.005 - 1.030 [facility] Color UA Yellow Yellow [facility]ORY Culture Reflexed No [facility] Specimen Anatomical Collection Method Collection Time Receive d Time (Source) Location / / Volume Laterality Clean Catch 06/01/2022 4:00 AM 2 4:26 Urine EDT AM EDT Resulting Agency Comment Spec In Lab Mahendra Victor MD URINE ORDERABLES Performing Organization Address City/State/ZIP Code Phon e Number [address] Magnesium (06/01/2022 1:00 AM EDT) athologist Signature Magnesium 0.93 0.69 - 1.07 [facility] mmol/L [facility] Specimen Anatomical Collection Method Collection Time Receive d Time (Source) Location / / Volume Laterality Blood 06/01/2022 1:00 AM 2 1:37 EDT AM EDT Resulting Agency Comment Spec In Lab Mahendra Victor MD CHEMISTRY ORDERABLES Performing Organization Address City/[facility] Phon e Number [address] (ABNORMAL) Basic Metabolic Panel (non-fasting) (06/01/2022 1:00 AM EDT) athologist Signature Glucose Lvl 148 65 - 199 [facility] mg/dL [facility] Comment: Diabetes: >=200 mg/dL plus symp toms BUN 23 (H) 10 - 20 mg/dL [facility] Creatinine 0.78 (L) 0.80 - 1.50 mg/dL [facility]ORY Sodium 141 135 - 145 mmol/L [facility] Potassium 4.0 3.5 - 5.0 mmol/L [facility] Comment: Please note: ??Patients with WBC >100,00 0 may have falsely elevated Potassium levels. ??For accurate Potassium quantif ication in these patients send serum separator tube (gold top) for subsequent determinations. ??Contact the Clinical Chemistry Laboratory if there are any qu estions. Chloride 108 (H) 98 - 107 mmol/L [facility] CO2 24 22 - 31 mmol/L [facility] Anion Gap 9 5 - 15 mmol/L [facility] Calcium 8.6 8.5 - 10.5 mg/dL [facility] Estimated GFR 91 >=60 mL/min/1.73 m?? [facility] Comment: This patient's estimated [...] Organization Address City/State/ZIP Code Phon e Number [place] [id number] HOSPITAL LAB[address]ORY Drive (ABNORMAL) Differential, Automated (06/01/2022 12:00 AM EDT) P athologist Signature Neutrophils % 64.6 % [facility]ORY Neutr Abs (ANC) 5.60 1.70 - [facility] 6.10 [facility] x10(3)/[facility] LABORATORY Lymphocytes % 22.4 % [facility] LABORATORY Lymphocytes Abs 1.9 0.9 - 3.2 [facility] x10(3)/[facility] LABORATORY Monocytes % 9.5 % [facility] LABORATORY Monocyte Abs 0.8 0.3 - 0.9 [facility] x10(3)/[facility] LABORATORY Eosinophils % 2.1 % [facility] LABORATORY Eosinophils Abs 0.2 0.0 - 0.4 [facility] x10(3)/[facility] LABORATORY Basophils % 0.6 % [facility]ORATORY Basophils Abs 0.0 0.0 - 0.1 [facility] x10(3)/[facility] LABORATORY Immature Gran % 0.80 % [facility] LABORATORY Comment: Immature granulocytes(IG's)percentage an d absolute count will include metamyelocytes, myelocytes, and promyelo cytes. Blood smears from CBCs yielding IG's will be scanned manually for concor dance. If this scan disagrees with the automated IG or if promyelocytes are not ed, a manual differential will be performed. Rain Gran Abs 0.07 (H) 0.00 - 0.04 x10(3)/[facility] LABORATORY Specimen (Source) Anatomical Collection Method Collection Time Re ceived Time Location / / Volume Laterality Blood 06/01/2022 06/01/2022 12:1 0 AM EDT Resulting Agency Comment Spec In Lab Arpita Valle MD HEMATOLOGY ORDERABLES Performing Organization Address City/State/ZIP Code Phon e Number [place] [phone] HOSPITAL LABORATORY Drive (ABNORMAL) Hemogram (06/01/2022 12:00 AM EDT) Analysis Performed At Patho logist Time Signature WBC 8.7 4.0 - 9.5 [facility] x10(3)/[facility] LABORATORY RBC 2.77 (L) 4.58 - [facility] XIAO 5.54 [facility] x10(6)/[facility] LABORATORY Hemoglobin 8.6 (L) 13.7 - [facility] 16.5 g/dL [facility] Hematocrit 25.7 (L) 40.5 - [facility] XIAO 48.5 % [facility] MCV 92.8 82.9 - [facility] LABORATORY MCH 31.0 27.5 - ILDA XIAO 32.1 pg [facility] MCHC 33.5 32.0 - [facility] 35.7 g/dL [facility] Platelets 260 145 - 357 [facility] x10(3)/[facility] LABORATORY RDWSD 51.9 (H) 36.0 - ILDA XIAO 45.0 [facility] RDWCV 15.5 (H) 11.4 - [facility] XIAO 13.8 % [facility] MPV 10.4 7.6 - 12.9 [facility] LABORATORY nRBC % Auto 0.0 % [facility] LABORATORY nRBC Abs Auto 0.000 0.000 - [facility] 0.000 [facility] x10(3)[facility] LABORATORY Specimen (Source) Anatomical Collection Method Collection Time Re ceived Time Location / / Volume Laterality Blood 06/01/2022 06/01/2022 12:1 0 AM EDT Resulting Agency Comment Spec In Lab Arpita Valle MD HEMATOLOGY ORDERABLES Performing Organization Address City/State/ZIP [place] [address] (ABNORMAL) Differential, Automated (05/31/2022 9:17 PM EDT) athologist Signature Neutrophils % 59.6 % [facility] LABORATORY Neutr Abs (ANC) 3.98 1.70 - [facility] 6.10 [facility] x10(3)[facility] LABORATORY Lymphocytes % 27.5 % [facility]ORATORY Lymphocytes Abs 1.8 0.9 - 3.2 [facility] x10(3)[facility] LABORATORY Monocytes % 9.1 % [facility] LABORATORY Monocyte Abs 0.6 0.3 - 0.9 [facility] x10(3)[facility] LABORATORY Eosinophils % 2.4 % [facility]ORATORY Eosinophils Abs 0.2 0.0 - 0.4 [facility] x10(3)[facility] LABORATORY Basophils % 0.7 % [facility] LABORATORY Basophils Abs 0.0 0.0 - 0.1 [facility] x10(3)[facility] LABORATORY Immature Gran % 0.70 % [facility] LABORATORY Comment: Immature granulocytes(IG's)percentage an d absolute count will include metamyelocytes, myelocytes, and promyelo cytes. Blood smears from CBCs yielding IG's will be scanned manually for concor dance. If this scan disagrees with the automated IG or if promyelocytes are not ed, a manual differential will be performed. Rain Gran Abs 0.05 (H) 0.00 - 0.04 x10(3)/[facility] LABORATORY Specimen Anatomical Collection Method Collection Time Receive d Time (Source) Location / / Volume Laterality Blood 05/31/2022 9:17 PM 2 9:25 EDT PM EDT Resulting Agency Comment Spec In Lab Arpita Valle MD HEMATOLOGY ORDERABLES Performing Organization Address City/State/ZIP [place] [address] (ABNORMAL) Hemogram (05/31/2022 9:17 PM EDT) Analysis Performed At Patho logist Time Signature WBC 6.7 4.0 - 9.[address] [facility] x[facility](3[facility] LABORATORY RBC 2.74 (L) 4.58 - ILDA XIAO 5.54 [facility] x10(6)/[facility] LABORATORY Hemoglobin 8.5 (L) 13.7 - [facility] 16.5 g/dL [facility] Hematocrit 25.7 (L) 40.5 - [facility] 48.5 % [facility] MCV 93.8 (H) 82.9 - [facility] XIAO 93.1 [facility] LABORATORY MCH 31.0 27.5 - ILDA XIAO 32.1 pg [facility] MCHC 33.1 32.0 - ILDA XIAO 35.7 g/dL [facility] Platelets 233 145 - 357 [facility] x10(3)/[facility] LABORATORY RDWSD 51.9 (H) 36.0 - [facility] XIAO 45.0 [facility] LABORATORY RDWCV 15.3 (H) 11.4 - [facility] XIAO 13.8 % [facility] MPV 10.3 7.6 - 12.9 [facility] LABORATORY nRBC % Auto 0.0 % [facility] LABORATORY nRBC Abs Auto 0.000 0.000 - ILDA XIAO 0.000 [facility] x10(3)/[facility] LABORATORY Specimen Anatomical Collection Method Collection Time Receive d Time (Source) Location / / Volume Laterality Blood 05/31/2022 9:17 PM 2 9:25 EDT PM EDT Resulting Agency Comment Spec In Lab Arpita Valle MD HEMATOLOGY ORDERABLES Performing Organization Address City/State/ZIP Code Phon e Number [facility] [place] [address] Transfuse RBC (05/31/2022 7:36 PM EDT) Regina Hinds MD NURSING TREATMENT ORDERABLES - BLOOD ADMIN Transfuse RBC (05/31/2022 7:36 PM EDT) Regina Hinds MD NURSING TREATMENT ORDERABLES - BLOOD ADMIN UPPER GI ENDOSCOPY (05/31/2022 3:37 PM EDT) Component Value Ref Test Analysis Performed At [facility] Range Method Time Signature UPPER GI [facility] ENDOSCOPY Endoscopy Procedure Date: 05/31/2022 3:37 PM ? Patient Name: Koko Zamora ? Date of : 1940 ? Age: 81 ? Order #: [id number] ? Instrument Name: [id number] ? Procedure: ? Upper GI endoscopy Indications: ? Melena, Suspected upper ? gastrointestinal bleeding Providers: ? Giovani Ponce, Torrey Gannon , ? Vani Wei, DION, Juhi Maxwell, ? Torres Ovalle MD: ?Regina Hinds Medicines: [...] Procedure Code(s): ? --- Professional --- ? 61380, Esophagogastroduode noscopy, ? flexible, transoral; with control [...] stomach ? and duodenum CPT copyright 2020 [employer]. All rights reserved. The codes documented in this report are preliminary and upon crystallizer operator review may be revised to meet [...] who have questions please contact the health critical care unit nurse that requested your imaging first. ? Narrative [...] contrast was not administered. COMPARISON: 05/15/2022 from [facility] FINDINGS: GI Tract: Pre-contrast: [...] enlarged lymph nodes. Vasculature: Patent common iliac, benefits specialist al iliac, and common femoral arteries bilaterally. [...] original. EXAMINATION: CT ABDOMEN AND PELVIS WWO Kurt ONTRAST (GI BLEED) CLINICAL HISTORY: Significant Hb [...] contrast was not administered. COMPARISON: 05/15/2022 from [facility] FINDINGS: GI Tract: Pre-contrast: [...] enlarged lymph nodes. Vasculature: Patent common iliac, benefits specialist al iliac, and common femoral arteries bilaterally. [...] ho have questions please contact the health critical care unit nurse that requested your imaging first. Regina Hinds MD IMG CT ORDERABLES Type and Screen Validity (05/31/2022 1:43 PM EDT) [facility] Method Time Signature T&S only valid [facility] LABORATORY Comment: This Type and Screen result is only valid at the [facility] Specimen Anatomical Collection Method Collection Time Receive d Time (Source) Location / / Volume Laterality Blood 05/31/2022 1:43 PM 2 1:57 EDT PM EDT Resulting Agency Comment Spec In Lab Regina Hinds MD BLOOD BANK ORDERABLES Performing Organization Address City/[facility]/ZIP Code Phon e Number [address] ABORH Recheck Status (05/31/2022 1:43 PM EDT) [facility] Method Time Signature ABORH Type Completed [facility] LABORATORY Specimen Anatomical Collection Method Collection Time Receive d Time (Source) Location / / Volume Laterality Blood 05/31/2022 1:43 PM 2 1:57 EDT PM EDT Resulting Agency Comment Spec In Lab Regina Hinds MD BLOOD BANK ORDERABLES Performing Organization Address [facility] [place] [address] Antibody screen (05/31/2022 1:43 PM EDT) [facility] Method Time Signature Ab Screen Negative [facility] LABORATORY Expires at 06/03/2022 [facility] [id number] on: [facility]ORY Specimen Anatomical Collection Method Collection Time Receive d Time (Source) Location / / Volume Laterality Blood 05/31/2022 1:43 PM 2 1:57 EDT PM EDT Resulting Agency Comment Spec In Lab Regina Hinds MD BLOOD BANK ORDERABLES Performing Organization Address City/[facility]/[place] [address] ABO/Rh Typing (05/31/2022 1:43 PM EDT) P athologist Signature ABORh Type O Pos [facility] LABORATORY Specimen Anatomical Collection Method Collection Time Receive d Time (Source) Location / / Volume Laterality Blood 05/31/2022 1:43 PM 2 1:57 EDT PM EDT Resulting Agency Comment Spec In Lab Regina Hinds MD BLOOD BANK ORDERABLES Performing Organization Address City/[facility]/[place] [address] Prepare RBC (05/31/2022 1:35 PM EDT) P athologist Signature Dispensed? Yes [facility] LABORATORY Specimen Anatomical Collection Method Collection Time Receive d Time (Source) Location / / Volume Laterality Blood 05/31/2022 1:35 PM 2 1:30 EDT PM EDT Regina Hinds MD BLOOD BANK ORDERABLES Performing Organization Address City/[facility]/[place] [address] Prepare RBC (05/31/2022 1:25 PM EDT) P athologist Signature Dispensed? Yes [facility] LABORATORY Specimen Anatomical Collection Method Collection Time Receive d Time (Source) Location / / Volume Laterality Blood 05/31/2022 1:25 PM 2 1:23 EDT PM EDT Regina Hinds MD BLOOD BANK ORDERABLES Performing Organization Address City/[facility]/[place] [address] (ABNORMAL) Differential, Automated (05/31/2022 12:44 PM EDT) P athologist Signature Neutrophils % 62.0 % [facility] LABORATORY Neutr Abs (ANC) 4.71 1.70 - [facility] 6.10 [facility] x10(3)/[facility] LABORATORY Lymphocytes % 24.1 % [facility] LABORATORY Lymphocytes Abs 1.8 0.9 - 3.2 [facility] x10(3)/[facility] LABORATORY Monocytes % 10.8 % [facility] LABORATORY Monocyte Abs 0.8 0.3 - 0.9 [facility] x10(3)/[facility] LABORATORY Eosinophils % 1.6 % [facility] LABORATORY Eosinophils Abs 0.1 0.0 - 0.4 [facility] x10(3)/[facility] LABORATORY Basophils % 0.7 % [facility] LABORATORY Basophils Abs 0.0 0.0 - 0.1 [facility] x10(3)/[facility] LABORATORY Immature Gran % 0.80 % [facility] LABORATORY Comment: Immature granulocytes(IG's)percentage an d absolute count will include metamyelocytes, myelocytes, and promyelo cytes. Blood smears from CBCs yielding IG's will be scanned manually for concor dance. If this scan disagrees with the automated IG or if promyelocytes are not ed, a manual differential will be performed. Rain Gran Abs 0.06 (H) 0.00 - 0.04 x10(3)/[facility] LABORATORY Specimen Anatomical Collection Method Collection Time Receive d Time (Source) Location / / Volume Laterality Blood 05/31/2022 12:44 05/31/2022 PM EDT 12:57 PM EDT Resulting Agency Comment Spec In Lab Brittany Ramirez MD HEMATOLOGY ORDERABLES Performing Organization Address City/State/ZIP [place] [address] (ABNORMAL) Hemogram (05/31/2022 12:44 PM EDT) Analysis Performed At Patho logist Time Signature WBC 7.6 4.0 - 9.5 [facility] x10(3)/[facility] LABORATORY RBC 2.11 (L) 4.58 - [facility] 5.54 [facility] x10(6)/[facility] LABORATORY Hemoglobin 6.9 (L) 13.7 - [facility] 16.5 g/dL [facility] Hematocrit 20.8 (L) 40.5 - [facility] 48.5 % [facility] LAB[facility] MCV 98.6 (H) 82.9 - [facility] 93.1 [facility] LABORATORY MCH 32.7 (H) 27.5 - [facility] 32.1 pg [facility] LABORATORY MCHC 33.2 32.0 - [facility] 35.7 g/dL [facility] LABORATORY Platelets 255 145 - 357 [facility] x10(3)/[facility] LABORATORY RDWSD 47.7 (H) 36.0 - [facility] 45.0 [facility] RDWCV 13.4 11.4 - [facility] 13.8 % [facility] MPV 10.7 7.6 - 12.9 [facility] LABORATORY nRBC % Auto 0.0 % [facility] LABORATORY nRBC Abs Auto 0.000 0.000 - [facility] 0.000 [facility] x10(3)/[facility] LABORATORY Specimen Anatomical Collection Method Collection Time Receive d Time (Source) Location / / Volume Laterality Blood 05/31/2022 12:44 05/31/2022 PM EDT 12:57 PM EDT Resulting Agency Comment Spec In Lab Brittany Ramirez MD HEMATOLOGY ORDERABLES Performing Organization Address City/State/ZIP [place] [address] (ABNORMAL) BLOOD GAS 2 VENOUS (05/31/2022 11:24 AM EDT) P athologist Signature pH Marco Antonio 7.38 7.32 - [facility] 7.42 [facility] pCO2 Marco Antonio 40 (L) 41 - 51 [facility] LABORATORY pO2 Marco Antonio 18 (L) 25 - 40 [facility] LABORATORY HCO3 Marco Antonio 23.3 mmol/L [facility] BE Marco Antonio -1.8 mmol/L [facility] Hgb Blood Gas 7.0 (L) 13.7 - [facility] 16.5 g/dL [facility] O2HB Marco Antonio 24.3 % [facility] COHB Marco Antonio 1.4 % [facility] Comment: Nonsmokers: 0.5-1.5% COHB Smokers: Variable, but usually less than 10% Toxic: 20-30% COHB Lethal: Greater than 60% COHB METHB Marco Antonio 1.7 (H) <=1.5 % [facility] Na Whole Blood 137 135 - 145 mmol/L [facility] K Whole Blood 3.9 3.5 - 5.0 mmol/L [facility] Comment: Please note: Patients with WBC >100,000 may have falsely elevated Potassium levels. Contact the Clinical Chemistry L aboratory if there are any questions. ICa Whole Blood 1.19 1.15 - 1.33 mmol/L [facility] Comment: Note: ??Total bilirubin higher than 20 m g/dL may lead to falsely low ionized calcium. CL Whole Blood 107 98 - 107 mmol/L [facility] Gluc Whole Bld 204 (H) 65 - 199 mg/dL [facility] LAB[facility] Comment: Diabetes: >=200 mg/dL plus symp toms Lactate WB 1.4 0.5 - 2.2 mmol/L [facility] LAB[facility] BGas Source Venous [facility] LABORATORY Specimen Anatomical Collection Method Collection Time Receive d Time (Source) Location / / Volume Laterality Blood 05/31/2022 11:24 05/31/2022 AM EDT 11:24 AM EDT Regina Hinds MD CHEMISTRY ORDERABLES Performing Organization Address City/State/ZIP [place] [address] TSH [place] (05/31/2022 11:20 AM EDT) P athologist Signature TSH 1.67 0.27 - 4.20 [facility] mcIU/mL [facility] Comment: Reference Interval (mcIU/mL): Females: ??First Trimester: 0.23-3.88 ??Second Trimester: 0.22-3.90 ??Third Trimester: 0.44-4.66 Specimen Anatomical Collection Method Collection Time Receive d Time (Source) Location / / Volume Laterality Blood 05/31/2022 11:20 05/31/2022 AM EDT 11:28 AM EDT Resulting Agency Comment Spec In Lab Regina Hinds MD CHEMISTRY ORDERABLES Performing Organization Address City/State/ZIP [place] [address] XR Chest PA & [...] who have questions please contact the health critical care unit nurse that requested your imaging first. ? Narrative [...] original. EXAMINATION: XR CHEST PA AND LATERAL ([employer]) CLINICAL HISTORY: CHAMBERS, Fatigue. HFrEF, r ecent [...] ho have questions please contact the health critical care unit nurse that requested your imaging first. Regina Hinds MD IMG DX ORDERABLES Lipase (05/31/2022 10:50 AM EDT) P athologist Signature Lipase 41 0 - 60 [facility]/L [facility] Specimen Anatomical Collection Method Collection Time Receive d Time (Source) Location / / Volume Laterality Blood Venous Draw / 05/31/2022 10:50 05/31/2022 Unknown AM EDT 11:11 AM EDT Resulting Agency Comment Spec In Lab Zain Champion MD CHEMISTRY ORDERABLES Performing Organization Address City/State/ZIP Code Phon e Number [place] [phone]OS[address] LAB[address]ORY Drive (ABNORMAL) Hepatic Function Panel (05/31/2022 10:50 AM EDT) Analysis Performed At Patho logist Time Signature Total Protein 6.4 6.1 - 8.0 [facility] XIAO g/dL [facility] Albumin 4.1 3.2 - 5.2 [facility] XIAO g/dL [facility] AST 24 0 - 39 [facility] XIAO unit/L [facility] ALT 44 0 - 55 [facility] Alk Phos 63 40 - [address] [address]/L [facility] Total <0.2 (L) 0.2 - 1.[address] [facility] Bilirubin mg/dL [facility] Bili, Direct 0.1 0.0 - 0.3 [facility] XIAO mg/dL [facility] Specimen Anatomical Collection Method Collection Time Receive d Time (Source) Location / / Volume Laterality Blood Venous Draw / 05/31/2022 10:50 05/31/2022 Unknown AM EDT 11:11 AM EDT Resulting Agency Comment Spec In Lab Zain Champion MD CHEMISTRY ORDERABLES Performing Organization Address City/State/[place] [address] Blue Tube HOLD (05/31/2022 10:50 AM EDT) P athologist Signature Blue Hold Sample in [facility] lab. [facility] Specimen Anatomical Collection Method Collection Time Receive d Time (Source) Location / / Volume Laterality Blood Venous Draw / 05/31/2022 10:50 05/31/2022 Unknown AM EDT 11:05 AM EDT Brittany Ramirez MD HEMATOLOGY ORDERABLES Performing Organization Address City/State/[place] [address] (ABNORMAL) Differential, Automated (05/31/2022 10:50 AM EDT) P athologist Signature Neutrophils % 66.9 % [facility] Neutr Abs (ANC) 5.58 1.70 - [facility] 6.10 [facility] x10(3)/[facility] LABORATORY Lymphocytes % 22.2 % [facility] Lymphocytes Abs 1.8 0.9 - 3.2 [facility] x10(3)/[facility] LABORATORY Monocytes % 7.8 % [facility] Monocyte Abs 0.6 0.3 - 0.9 [facility] x10(3)/[facility] LABORATORY Eosinophils % 1.2 % [facility] Eosinophils Abs 0.1 0.0 - 0.4 [facility] x10(3)/[facility] LABORATORY Basophils % 0.7 % [facility] Basophils Abs 0.1 0.0 - 0.1 [facility] x10(3)/[facility] LABORATORY Immature Gran % 1.20 % [facility] Comment: Immature granulocytes(IG's)percentage an d absolute count will include metamyelocytes, myelocytes, and promyelo cytes. Blood smears from CBCs yielding IG's will be scanned manually for concor dance. If this scan disagrees with the automated IG or if promyelocytes are not ed, a manual differential will be performed. Rain Gran Abs 0.10 (H) 0.00 - 0.04 x10(3)/[facility] LABORATORY Specimen Anatomical Collection Method Collection Time Receive d Time (Source) Location / / Volume Laterality Blood 05/31/2022 10:50 05/31/2022 AM EDT 11:03 AM EDT Resulting Agency Comment Spec In Lab Brittany Ramirez MD HEMATOLOGY ORDERABLES Performing Organization Address City/State/ZIP Code Phon e Number [place] [phone] [facility] LABORATORY Drive (ABNORMAL) Hemogram (05/31/2022 10:50 AM EDT) Analysis Performed At Patho logist Time Signature WBC 8.3 4.0 - 9.[address] [facility] x[facility](3[facility] LABORATORY RBC 2.26 (L) 4.58 - [facility] XIAO 5.54 [facility] x10(6)/[facility] LABORATORY Hemoglobin 7.4 (L) 13.7 - [facility] 16.5 g/dL [facility] Hematocrit 22.3 (L) 40.5 - [facility] 48.5 % [facility] MCV 98.7 (H) 82.9 - [facility] 93.1 [facility] LABORATORY MCH 32.7 (H) 27.5 - [facility] 32.1 pg [facility] MCHC 33.2 32.0 - [facility] 35.7 g/dL [facility] Platelets 283 145 - 357 [facility] x10(3)/[facility] LABORATORY RDWSD 47.0 (H) 36.0 - [facility] 45.0 [facility] LABORATORY RDWCV 13.4 11.4 - [facility] 13.8 % [facility] MPV 10.8 7.6 - 12.9 [facility] LABORATORY nRBC % Auto 0.0 % [facility] LABORATORY nRBC Abs Auto 0.000 0.000 - [facility] 0.000 [facility] x10(3)/[facility] LABORATORY Specimen Anatomical Collection Method Collection Time Receive d Time (Source) Location / / Volume Laterality Blood 05/31/2022 10:50 05/31/2022 AM EDT 11:03 AM EDT Resulting Agency Comment Spec In Lab Brittany Ramirez MD HEMATOLOGY ORDERABLES Performing Organization Address City/State/ZIP [place] [address] Phosphorus (05/31/2022 10:50 AM EDT) P athologist Signature Phosphorus 3.2 2.5 - 4.5 [facility] mg/dL [facility] Specimen Anatomical Collection Method Collection Time Receive d Time (Source) Location / / Volume Laterality Blood 05/31/2022 10:50 05/31/2022 AM EDT 11:03 AM EDT Resulting Agency Comment Spec In Lab Regina Hinds MD CHEMISTRY ORDERABLES Performing Organization Address City/State/[place] [address] Magnesium (05/31/2022 10:50 AM EDT) athologist Signature Magnesium 0.93 0.69 - 1.07 [facility] XIAO mmol/L [facility] Specimen Anatomical Collection Method Collection Time Receive d Time (Source) Location / / Volume Laterality Blood 05/31/2022 10:50 05/31/2022 AM EDT 11:03 AM EDT Resulting Agency Comment Spec In Lab Regina Hinds MD CHEMISTRY ORDERABLES Performing Organization Address City/[facility]/ZIP Code Phon e Number [address] (ABNORMAL) pro-Brain Natriuretic Peptide (05/31/2022 10:50 AM EDT) athologist [facility] ProBNP 1,077 (H) <=449 [facility] pg/mL [facility] Specimen Anatomical Collection Method Collection Time Receive d Time (Source) Location / / Volume Laterality Blood 05/31/2022 10:50 05/31/2022 AM EDT 11:03 AM EDT Resulting Agency Comment Spec In Lab Regina Hinds MD CHEMISTRY ORDERABLES Performing Organization Address City/[facility]/[place] [address] Troponin (05/31/2022 10:50 AM EDT) athologist Signature Troponin-T <0.01 0.00 - 0.00 [facility] ng/mL [facility] Comment: The 99th percentile for Troponin T is le ss than 0.01 ng/mL, any detectable cTnT concentration using this assay should be considered elevated. According to the third universal definit ion of myocardial infarction the following criteria with a clinical prese ntation consistent with acute myocardial ischemia meets the diagnosis for a myocardial infarction (ME). Detection of a rise and/or fall of [...] additional sample may be indicated. Reference: Third [place] Definition of Myocardial Infarction. Journal of the [place] [employer] 2012;60:1581-98 Specimen Anatomical Collection Method Collection Time Receive d Time (Source) Location / / Volume Laterality Blood 05/31/2022 10:50 05/31/2022 AM EDT 11:03 AM EDT Resulting Agency Comment Spec In Lab Regina Hinds MD CHEMISTRY ORDERABLES Performing Organization Address City/State/ZIP [place] [address] (ABNORMAL) Basic Metabolic Panel (non-fasting) (05/31/2022 10:50 AM EDT) P athologist Signature Glucose Lvl 223 (H) 65 - 199 [facility] mg/dL [facility] Comment: Diabetes: >=200 mg/dL plus symp toms BUN 39 (H) 10 - 20 mg/dL [facility] LABORATORY Creatinine 0.91 0.80 - 1.50 mg/dL [facility] LABOR[facility]ORY Sodium 140 135 - 145 mmol/L [facility] LABOR[facility] Potassium 4.1 3.5 - 5.0 mmol/L [facility] LABOR[facility]ORY Comment: Please note: ??Patients with WBC >100,00 0 may have falsely elevated Potassium levels. ??For accurate Potassium quantif ication in these patients send serum separator tube (gold top) for subsequent determinations. ??Contact the Clinical Chemistry Laboratory if there are any qu estions. Chloride 107 98 - 107 mmol/L [facility] LABOR[facility]ORY CO2 23 22 - 31 mmol/L [facility] Anion Gap 10 5 - 15 mmol/L [facility] LABOR[facility]ORY Calcium 9.1 8.5 - 10.5 mg/dL [facility] LABOR[facility]ORY Estimated GFR 86 >=60 mL/min/1.73 m?? [facility] Comment: This patient's estimated [...] Organization Address City/State/ZIP Code Phon e Number [place] [phone] HOSPITAL LAB[address]ORY Drive EKG 12 Lead (05/31/2022 10:11 AM EDT) Component Value Ref Range Test Analysis Performed Pathologis t Method Time At Signature Ventricular rate 106 BPM MUSE SYSTEM QRS Duration 122 ms MUSE SYSTEM Q-T Interval 368 ms MUSE SYSTEM QTC Calculated 488 ms MUSE SYSTEM (Bezet) Calculated R [place] -43 degrees MUSE SYSTEM Calculated T [place] 109 degrees MUSE SYSTEM INTERPRETATION Atrial fibrillation [...] erpretation Confirmed by fellow MD Mike, [place] ([id number]) on 022 8:36:21 PM Confirmed by MD KENDRICK, ABBY ([id number]) on 06/03/2022 5:04:32 PM Specimen Anatomical Collection Method Collection Time Receive d Time (Source) Location / / Volume Laterality 05/31/2022 10:11 06/03/2022 5:04 AM EDT PM EDT Regina Hinds MD ECG ORDERABLES Performing Organization Address City/State/ZIP Code Phon e Number [facility] documented in this encounter Visit Diagnoses [...] at 2016, Until Discontinued, Routine Given 06/01/2022 9:34 AM EDT 1 spray Given 05/31/2022 9:09 PM EDT 1 spray heparin (porcine) (1,000 units/mL) injec tion 0-4,000 Units 0-4,000 Units, Intravenous, BOLUS PER ABRAHAM PROTOCOL, Starting on Fri05/31/22 at 2014, [...] tion) EVERY 24 HOURS, First dose on Fri06/02/22 at 0430, Until Discontinued, Apply patch(es) to left lower extremity for 12 hours, and then remove for 12 hours. Can cut to fit on anterior martell and posterior calf., Routine lidocaine (Lidoderm) topical patch REMOV AL Transdermal, EVERY 24 HOURS, First dose on Fri06/02/22 at 1630, Until Discontinued, Remove lidocaine 5% [...] 09 (Given - Provider: Trinidad Saenz RN) 0813 (Given - Provider: Trinidad Saenz RN) 1 spray, Each Nare, DAILY, First dose on Fri05/31/22 at 2016, Until Discontinued, Routine lidocaine (Lidoderm) 5% patch 2 patch(Linked Group 1) 0402 (Patch Applied - Provider: Raven Barbour RN [...] - Comment: per verbal MD order Kirstin Aimee, do not give)1150 (Given - Provider: Trinidad [...] 2108 (Given - Provider: Raven Barbour RN) 811 (Given - Provider: Trinidad Saenz RN) 08 (Given - Provider: Trinidad Saenz RN) 40 mg, Oral, DAILY, First dose on Fri at 2016, Until Discontinued, Routine sodium chloride 0.9 % (flush) (BD PosiFlush Normal Ubaldo ine 0.9) flush 5 mL 2118 (Given - Provider: Raven Barbour RN) 812 (Given - Provider: Trinidad Saenz RN)2042 (Given - Provider: Raven Barbour RN) 08 (Given - Provider: Trinidad Saenz RN) 5 mL, Intravenous, 2 TIMES DAILY, First dose on Fri05/31/22 at 2100, Until Discontinued, Routine tamsulosin (Flomax) capsule 0.4 mg 141 (Given - Provider: Trinidad Saenz RN) 08 (Given - Provider: Trinidad Saenz RN) 0.4 [...] Group 2) 0-4,000 Units, Intravenous, BOLUS PER HE ABRAHAM [...] rst dose on 06/02/22 at 0430, Until Discontinued
Apply patch(es) to [...] CONTINUOUS, Starting on Fri05/31/22 at 2016, Until 06/02/22 at 1702
Begin infusion at 950 units per hr (12 units/kg/hr). Maximum initial infusion rate is 1,000 units/hr. Infusion d oses are rounded to the nearest 50 units. Target Heparin UFH Level (anti-Xa activity) = 0.3 - 0.7 international unit/mL &nbsp ;Start adjustment schedule 6 hours after starting infusion. If Heparin UFH Level is: - Less than 0.1 international unit/mL: Ad sound equipment mechanic 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 to med 0-4,000 Units, Intravenous, BOLUS PER ABRAHAM PROTOCOL, Starting on Fri05/31/22 at 2014, [...]
Routine documented in this encounter Care Teams Hematology Nurse Relationship Specialty Start Date End Date Abby Das MD PCP - General 10/02/[address] [place] [address] [place] [id number] documented as of this encounter
--- OUTSIDE RECORDS SUMMARY | 2022-06-28 11:06 | XMS_ITS | Encounter Summary ---
:1940 Author Organization [place] [address] Care Team Providers Name Role Phone Bobby Das MD Primary Care Provider Encounter Details Date Type Department Care Team Description 05/24/[address] [facility] [place]ourtney Jimenez, RN [facility] [place] [address] Social History Tobacco Use Types Packs/Day [...] 07/02/2022 Office Visit Vascular Surgery Jing Ghosh, ELECTRIC DEICER INSPECTOR [facility] VASCULAR [facility] [place] [address] (Wo rk) 09/02/2022 Clinical Support Dermatology Thai Lynn MD [facility] ER DR JENNY BILLY-DERMAT [place], [place] [address] (Wo rk) 09/02/2022 Procedure visit Dermatology Jace Lynn MD [facility] DR JENNY BILLY-DERMAT [place], [place] [address] (Wo rk) 09/05/2022 Appointment Cardiology Trinity Reid MD [facility] CARDIOLOGY [place], [place] [address] (Wo rk) 09/05/2022 Office Visit Cardiology Trinity Reid MD [facility] CARDIOLOGY [place], [place] [address] (Wo rk) documented as of this encounter Visit Diagnoses Not on filedocumented in this encounter Care Teams Nurse Paralegal Relationship Specialty Start Date End Date Bobby Das MD PCP - General 10/02/[address] [place] [address] [place] [address] documented as of this encounter
--- OUTSIDE RECORDS SUMMARY | 2022-06-28 11:06 | XMS_ITS | Encounter Summary ---
:1940 [place] [address] Care Team Providers Name Role Phone Bobby Das MD Primary Care Provider Encounter Details Date Type Department Care Team Description 06/13/2022 Office Visit Vascular Surgery at [facility] Fito Summers MD Limb ischemia [place] [phone] VASCULAR SURGERY [phone] [place] [phone] (Wo rk) Social History Tobacco Use Types [...] s/p repair Overview Note: Surgery done at [facility] in 2000 ??? Hypertriglyceridemia Overview Note: [...] with ABIs. Fito Summers MD Vascular Surgery [facility] Emily Power CMA - 06/13/2022 8:00 AM EDT Handwashing performed, gloves on.As instructed by windy removed on LLE medial and lateral aspect, cleansed after staple remover, steri strips applied. Gloves off, handwashing performed. documented in this encounter Plan of Treatment Upcoming Encounters Date Type Specialty Care Team Description 07/02/2022 Office Visit Vascular Surgery Jing Ghosh APRN [facility] VASCULAR SURGERY [place], [place] [address] (Wo rk) 09/02/2022 Clinical Support Dermatology Thai Lynn MD [facility] DR JENNY BILLY-DERMAT [place], [place] [address] (Wo rk) 09/02/2022 Procedure visit Dermatology Jace Lynn MD [facility] DR JENNY BILLY-DERMAT [place], [place] [address] (Wo rk) 09/05/2022 Appointment Cardiology Trinity Reid MD [facility] DR WARNER [place], [place] [address] (Wo rk) 09/05/2022 Office Visit Cardiology Trinity Reid MD [facility] CARDIOLOGY [place], [place] [address] (Wo rk) documented as of this encounter Visit Diagnoses Diagnosis Limb ischemia Unspecified circulatory system disorder documented in this encounter Care Teams Carton Gluing Machine Operator Relationship Specialty Start Date End Date Bobby Das MD PCP - General 10/02/[address] [place] [address] [place] [phone] documented as of this encounter
--- OUTSIDE RECORDS SUMMARY | 2022-06-28 11:06 | XMS_ITS | Encounter Summary ---
:1940 Author Organization [facility] [place] [address] Care Team Providers Name Role Phone Bboby Das MD Primary Care Provider Encounter Details Date Type Department Care Team Description 05/28/2022 Telephone [place] [facility] [place]ivar, [place] [address] Social History Tobacco Use Types Packs/Day [...] RN - 05/28/2022 1:20 PM EDT This fiction writer returned phone call due to 's [...] cardiac history and symptoms of lightheadedness, this fiction writer recommended the patient be evaluated. Discussed going to local ED ([facility]) where staff could also phone vascular and/or cardiac at D- for planning. The patient agreed to do this after he has lunch. documented in this encounter Plan of Treatment Upcoming Encounters Date Type Specialty Care Team Description 07/02/2022 Office Visit Vascular Surgery Jing Ghosh APRN [facility] DR VASCULAR SURGERY [place], [place] [address] (Wo rk) 09/02/2022 Clinical Support Dermatology Thai Lynn MD [facility] DR JENNY BILLY-DERMAT [place], [place] [address] (Wo rk) 09/02/2022 Procedure visit Dermatology Jace Lynn MD [facility] DR JENNY BILLY-DERMAT [place], [place] [address] (Wo rk) 09/05/2022 Appointment Cardiology Trinity Reid MD [facility] CARDIOLOGY [place], [place] [address] (Wo rk) 09/05/2022 Office Visit Cardiology Trinity Reid MD [facility] DR WARNER [place], [place] [address] (Wo rk) documented as of this encounter Visit Diagnoses Not on filedocumented in this encounter Care Teams Medical Receptionist Biller Relationship Specialty Start Date End Date Bobby Das MD PCP - General 10/02/[address] [place] [address] [place] [address] documented as of this encounter
--- OUTSIDE RECORDS SUMMARY | 2022-06-28 11:06 | XMS_ITS | Encounter Summary ---
:1940 Author Organization [facility] [place] [address] Care Team Providers Name Role Phone Bobby Das MD Primary Care Provider Reason for Referral Diagnostic Test (Routine) - Authorized Specialty Diagnoses / Procedures Referred By Contact Refer red To Contact Cardiology Diagnoses HFrEF (heart failure with reduced ejection fraction) Alan Reid MD [facility] Non-Inv Card Lab Procedures Echocardiogram [place] [address] [place] [address] Fax: Referral ID Status Reason Start Expiration Visits Visits Date Date Requested Authorized [id number] Authorized Specialty 06/13/2022 06/13/2023 1 1 Service Requested Reason for Visit Consultation (Routine) - Closed Specialty Diagnoses / Procedures Referred By Contact Refer red To Contact Cardiology Diagnoses HFrEF (heart failure with reduced ejection fraction) Paroxysmal atrial fibrillation Post-hospital follow-up, s/p PCI with stenting, heart failure Nasrin Parra PA [facility] Card[facility] [address] [place] [address] [place] [address] Referral ID Status Reason Start Date Expiration Date Visits V isits Requested Authorized [id number] Closed Consult, 05/21/2022 05/21/2023 1 1 Test & Treat Encounter Details Date Type Department Care Team Description 06/13/2022 Office Visit Cardiology at [facility] Alan Reid Coronary artery disease invo lving [place] coronary artery of [place] heart without angina pectoris; [facility] MD Kurt HFrEF (heart failure with reduced ejecti on fraction); Drive [facility] Permanent [place] [address] CARDIOLOGY [phone] [place], [place] [address] Social History Tobacco Use Types [...] included. [facility] NA[place] [phone] CARDIOLOGY OUTPATIENT PROGRESS NOTE PRIMARY CARE PROVIDER: Bobby Das MD REFERRING PROVIDER: Nasrin Parra PROBLEM LIST: Patient Active Problem List Diagnosis ??? Coronary artery disease involving [place] coronary artery of [place] heart without angina pectoris 05/20/22 Cath [...] valve prolapse) s/p repair Surgery done at [facility] in 2000 ??? Hypertriglyceridemia ??? Adhesive capsulitis [...] 3 ??? fluticasone propionate (FLONASE) 50 mcg/actuation [place], Suspension 1 spray by Each Nare route [...] healing well. Markedly diminished left radial pulse. SENIOR BOOKKEEPER: Normal mentation. Psych: Appropriate affect. Labs: Lab [...] device therapy possiblyincluding AV node ablation and MDM DEVELOPER-D. Coronary artery disease involving [place] coronary artery of [place] heart without angina pectoris His coronary [...] for consideration of AV node ablation and MDM DEVELOPER-D Patient Instructions ??? Your new medication is [...] for consideration of AV node ablation and MDM DEVELOPER-D Assessment & Plan Note - Alan Reid MD - 06/13/2022 10:22 AM EDT Associated Problem(s): Coronary artery disease involving [place] coronary artery of [place] heart without angina pectoris His coronary [...] device therapy possiblyincluding AV node ablation and MDM DEVELOPER-D. documented in this encounter Plan of Treatment Upcoming Encounters Date Type Specialty Care Team Description 07/02/2022 Office Visit Vascular Surgery Jing Ghosh, HIRAL [facility] DR VASCULAR SURGERY [place], [place] [address] (Wo rk) 09/02/2022 Clinical Support Dermatology Thai Lynn MD [facility] DR [address]ENNY [address]Y[place]DER[facility] [place], [place] [address] (Wo rk) 09/02/2022 Procedure visit Dermatology Jace Lynn MD [facility] DR JENNY [place]ILL[place], [place] [address] (Wo rk) 09/05/2022 Appointment Cardiology Trinity Reid MD [facility] CARDIOLOGY [place], [place] [address] (Wo rk) 09/05/2022 Office Visit Cardiology Trinity Reid MD [facility] CARDIOLOGY [place], [place] [address] (Wo rk) Scheduled Orders Name Type Priority Associated Order Schedule Diagnoses Echocardiogram Echocardiography Routine HFrEF (heart Expected: Transthoracic failure with 08/13/2022, reduced ejection Expires: fraction) 02/12/2023 documented as of this encounter Visit Diagnoses Diagnosis Coronary artery disease involving [place] coronary artery of [place] heart without angina pectoris HFrEF (heart failure with reduced ejecti on fraction) Permanent atrial fibrillation Atrial fibrillation documented in this encounter Care Teams Kiln Remover Relationship Specialty Start Date End Date Bobby Das MD PCP - General 10/02/[address] [place] [address] [place] [phone] documented as of this encounter
--- OUTSIDE RECORDS SUMMARY | 2022-06-28 11:06 | XMS_ITS | Encounter Summary ---
:1940 Author Organization [facility] [place] [address] Care Team Providers Name Role Phone Abby Das MD Primary Care Provider Reason for Visit Reason Comments Dizziness Auth/Cert Specialty Diagnoses / Procedures Referred By Contact Refer red To Contact Diagnoses GIB (gastrointestinal bleeding) Abe [facility] SERVICE ARE[facility] [place] [address] Referral ID Status Reason Start Date Expiration Date Visits Requ ested Visits Authorized [id number] 1 1 Encounter Details Date Type Department Care Team Description 05/31/2022 Surgery Gastroenterology at [facility] Giovani Ponce, EGD, UPPER GI [facility] [place] [address] [facility] [phone] [address] [place] [address] Social History Tobacco Use Types Packs/Day [...] switching to a different bloodthinner with the tableau developer outpatient. Call your doctor or seek medical [...] switchingto a different blood thinner with your tableau developer as an outpatient Stopped Medications - Aspirin - Valsartan - Speak with your tableau developer about the timing of restarting this Follow-up Appointments Future Appointments Date Time Provider Department Center 06/10/2022 11:00 AM Loretta Cohen MD [facility] 06/13/2022 7:30 AM Edson [place] [facility] VAS LAB [facility] 06/13/2022 8:00 AM Fito Summers MD [facility] V SURG [facility] 06/13/2022 10:00 AM Alan Reid MD [facility] CARD [address] [place] [address] Your Inpatient Medical Team at [facility] Name(s) of your inpatient provider(s): Dr. John Ames For questions regarding issues relating to your hospitalization on the Hospital Medicine Service, please contact your inpatient physician through the [facility] Statistician Theoretical [phone]. Issues after hours and on weekends will be handled by the Hospitalist staff on-call. Your Primary Care Provider Abby Das MD [phone] Future Appointments and Orders Future Appointments and Orders Future Appointments Provider Department Dept Phone 06/10/2022 11:00 AM Loretta Cohen MD Dermatology at [facility] Arrive at: Power System Operator [address] [place] [phone] 06/13/2022 7:30 AM Edson [place] Vascular Lab at [facility] Arrive at: Power System Operator Area 06/13/2022 8:00 AM Fito Summers MD Vascular Surgery at [facility] Arrive at: Power System Operator Area 06/13/2022 10:00 AM Alan Reid MD Cardiology at [facility] Arrive at: Power System Operator Area 4A [phone] For questions regarding this document or issues relating to this hospitalization on the Medical Service, please contact your inpatient physician through the [facility] Statistician Theoretical . Issues after hours and on weekends [...] switching to a different bloodthinner with the tableau developer outpatient. Call your doctor or seek medical [...] switchingto a different blood thinner with your tableau developer as an outpatient Stopped Medications - Aspirin - Valsartan - Speak with your tableau developer about the timing of restarting this Follow-up Appointments Future Appointments Date Time Provider Department Center 06/10/2022 11:00 AM Loretta Cohen MD [facility] 06/13/2022 7:30 AM Edson [place] [facility] VAS LAB ILDA POWELL 06/13/2022 8:00 AM Fito Summers MD [facility] V SURG [facility] 06/13/2022 10:00 AM Alan Reid MD [facility] CARD 4A [facility] Your Inpatient Medical Team at [facility] Name(s) of your inpatient provider(s): Dr. John Ames For questions regarding issues relating to your hospitalization on the Hospital Medicine Service, please contact your inpatient physician through the [facility] Statistician Theoretical [phone]. Issues after hours and on weekends will be handled by the Hospitalist staff on-call. Your Primary Care Provider Abby Das MD [phone] documented in this encounter Medications at Time [...] 04/12/20 21 (FLONASE) 50 mcg/actuation Nare route [place], Suspension daily as needed. fluorouraciL (EFUDEX) 5 [...] spent >30 minutes (Day of Discharge Code 45835) involved in the final examination of the [...] from the original note were not included. [facility] Medicine Progress Note Sylvester Team - Pager #[phone] Admit Date: 05/31/2022 Name: Koko Zamora : [...] cardiology to discuss antiplatelet (ISO bleed and senior living), following. ?? #CAD s/p stenting recently #HFrEF [...] Kurt Ames MD Internal Medicine, PGY-1 Medicine Sylvester Team #[id number] Associated attestation - John Jolley MD - 06/01/2022 5:02 PM EDT [facility] Medicine -- Attending Progress Note Please [...] from the original note were not included. [facility] Medicine (#[id number]) History and Physical Patient info: Name: Koko Zamora : 1940 PCP: Abby Das MD PCP phone number: [phone] Date of Admission: 05/31/2022 ( Hospital Day [...] IR Biopsy Spine 07/20/2019 Abby Marshall MD [facility] INTERVENTIONL RAD ??? IR VERTEBROPLASTY LUMBAR MULTIPLE LEVELS 07/20/2019 IR Vertebroplasty Lumbar Multiple Levels 07/20/2019 Abby Marshall MD [facility] INTERVENTIONL RAD ??? IR VERTEBROPLASTY THORACIC SINGLE LEVEL 10/25/2020 IR Vertebroplasty Thoracic Single Level 10/25/2020 Matt Chisholm MD [facility] INTERVENTIONL RAD ??? PRO EMBLC/THRMBC FEMORAL POPLITEAL AORTO-ILIAC ARTERY Left 05/15/2022 EMBOLECTOMY OR THROMBECTOMY, FEMOROPOPLITEAL, AORTOILIAC ARTERY BY LEG INCISION (WRVU 19.48) performed by Fito Summers MD at [facility] MAIN OR No family history on [...] 11 ??? fluticasone propionate (FLONASE) 50 mcg/actuation [place], Suspension as needed. ??? fluorouraciL (EFUDEX) 5 [...] Gas) No results found for: PHART, PO2ART, OSK1XNT, XVS4HHY Microbiology: N/A Pertinent radiology/diagnostic studies: Recent prior [...] Lines/Access: PIV x2 CODE Status: Full Arpita Vlale MD, PGY-3 05/31/2022 [facility] Medicine # [id number] Attending Staff Admission [...] 05/31/2022 3:58 PM EDT [facility]. Upon arrival to pt's [...] 10:50 AM EDT Pt brought to by weed eradicator Brittany Ramirez MD - 05/31/2022 10:40 AM [...] who have questions please contact the health career services representative that requested your imaging first. Electronically signed by: Jl Zuluaga MD, [facility] ([phone]), at 05/31/2022 2:39 PM XR Chest PA [...] who have questions please contact the health career services representative that requested your imaging first. Electronically signed by: Alan Brink MD, [facility] ([phone]), at 05/31/2022 11:33 AM ED Course as of 05/31/22 1550 Fri May [...] given hemodynamic instability and significant anemia, with Albino. consultation. The visit findings, diagnosis, and care plan were discussed with the patient, and his agree with the plan. Patient signed out to oncoming ED team awaiting final recommendations from Brittany Tavares MD Resident 05/31/22 [id number] Associated attestation - Regina Hinds MD - [...] soft blood pressures, MD made aware. LBM SKIP TENDER. 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 Patient reported blurry/hazy [...] from the original note were not included. [place] [address] INPATIENT CARDIOLOGY CONSULT NOTE Date of Consultation: 06/01/2022 Admit Date: 05/31/2022 Place of Service: IS86/IS86-A Referring Attending: REGINA HINDS COLEMAN W FRIEDMAN, HARLEY P Responsible Extrusion Die Coordinator: Dr. Rizo Hospital Day 1 day Reason for Consult: Antiplatelet/anticoagulation s/p pci and afib, with GI bleed HPI: Koko Zamora is a 81 y.o. male with a cardiac history significant for remote mitral valve repair (2000), pre-DM, HLD, significant alcohol use, tobacco use, Afib on xarelto, ischemic systolic heartfailure (recent [facility] 05/20/2022 with 2V disease OM1 and distal RCA, had ostial LCX and LCx stent) who presented to [facility] on 05/31/2022 for GI bleed. Patient presented [...] IR Biopsy Spine 07/20/2019 Abby Marshall MD [facility] INTERVENTIONL RAD ??? IR VERTEBROPLASTY LUMBAR MULTIPLE LEVELS 07/20/2019 IR Vertebroplasty Lumbar Multiple Levels 07/20/2019 Abby Marshall MD [facility] INTERVENTIONL RAD ??? IR VERTEBROPLASTY THORACIC SINGLE LEVEL 10/25/2020 IR Vertebroplasty Thoracic Single Level 10/25/2020 Matt Chisholm MD [facility] INTERVENTIONL RAD ??? PRO EMBLC/THRMBC FEMORAL POPLITEAL AORTO-ILIAC ARTERY Left 05/15/2022 EMBOLECTOMY OR THROMBECTOMY, FEMOROPOPLITEAL, AORTOILIAC ARTERY BY LEG INCISION (WRVU 19.48) performed by Fito Summers MD at [facility] MAIN OR ALLERGIES: Allergies Allergen Reactions [...] time ??? fluticasone propionate (FLONASE) 50 mcg/actuation [place], Suspension 1 spray by Each Nare route [...] from 05/31/2022 in Intermediate Special Care Unit [facility] ED to Hosp-Admission (Discharged) from 05/15/2022 in Intermediate Cardiac Care Unit [facility] Weight 77.1 kg (170 lb) 1 [...] Neurology: Without focal deficit ECG: Echocardiogram: 05/16/2022 C 05/20/2022 Coronary Angiography: Dominance: Right Left Main [...] 3.5 guiding catheter and a 3.5 Fr [place] [facility] [place] [facility] 20 Mhz. Imaging was successful. Image [...] A premounted 2.75 x 30 mm Rudy Morehouse (AMPARO) was deployed with a maximum inflation [...] may require modification of this regimen. Consult [facility] Interventional Cardiology for questions. The 1 year [...] Hb drop. Unknown source. has had a [facility] with stent placed and revascularization of [...] who have questions please contact the health career services representative that requested your imaging first. Electronically signed by: Jl Zuluaga MD, [facility] ([phone]), at 05/31/2022 2:39 PM [facility] 48 Hrs-15 [...] who have questions please contact the health career services representative that requested your imaging first. Electronically signed by: Alan Brink MD, [facility] ([phone]), at 05/31/2022 11:33 AM LABS Recent Labs [...] on xarelto, ischemic systolic heart failure (recent [facility] 05/20/2022 with 2V disease OM1 and distal RCA, had ostial LCX and LCx stent), recent admission for acutelimb ischemia LLE, where he had left common femoral transverse arteriotomy and primary repair, thromboembolectomy of the SFA, profunda and common femoral artery with 4 compartment fasciotomies, who presented to [facility] on 05/31/2022 for GI bleed. Cardiology consulted [...] attestation for additional insight. Rossy Anaya MD [facility] Visitor Service Assistant, PGY-5 Inpatient Cardiology Consults Pager #[phone] Please check Qgenda for on-call cardiology consults [...] A&Ox 4. On room air. VSS. LBM: SKIP TENDER. Adequate urine output, urinal at bedside, flomax [...] surrogate would be surrogate decision maker per [place] surrogate decision making law. (Only good for 180 days) Any patient receiving care in [place] must abide by [place] law. The hierarchy [...] (i) The agent with financial power of nicu rn or a conservator appointed in accordance with [...] walker - rolling Home Address confirmed as: [address] [place] [id number] Social & Family Supports: All names listed below confirmed with patient as current and correct Extended Emergency Contact Information Primary Emergency Contact: Ursula Zamora Address: [address] [place] [id number] [facility] Relation: Spouse Current Care Provided by: self [...] Type: *No Product type* / Secondary Insurance: [facility] Secondary Insurance? (Only Medicare A&B): Yes ; Prescription Coverage: Yes Preferred Pharmacy: [facility] [place], [place] - [address] [place] [address] [place] [address] Loiza Status: Patient is a : No Primary Care Provider: Abby Das MD [phone] Patient/Caregiver Goals of Treatment: Patient plans to [...] with transition of care planning. [place] Lens Assistant [facility] Medicine/ Medical Specialties Pager- [phone] Plan [...] Operative Note Patient Name: Koko Zamora : [id number] MR#: [id number] Case Date: 05/31/2022 Surgeon: Surgeon(s) and Role: [...] stomach. He has had colonoscopies before in [place] - notes first ever he had 6 polyps removed but last colo 5 yrs ago was normal. He lives in [facility]. Currently light-headedness is improved. No fevers, [...] IR Biopsy Spine 07/20/2019 Abby Marshall MD [facility] INTERVENTIONL RAD ??? IR VERTEBROPLASTY LUMBAR MULTIPLE LEVELS 07/20/2019 IR Vertebroplasty Lumbar Multiple Levels 07/20/2019 Abby Marshall MD [facility] INTERVENTIONL RAD ??? IR VERTEBROPLASTY THORACIC SINGLE LEVEL 10/25/2020 IR Vertebroplasty Thoracic Single Level 10/25/2020 Matt Chisholm MD [facility] INTERVENTIONL RAD ??? PRO EMBLC/THRMBC FEMORAL POPLITEAL AORTO-ILIAC ARTERY Left 05/15/2022 EMBOLECTOMY OR THROMBECTOMY, FEMOROPOPLITEAL, AORTOILIAC ARTERY BY LEG INCISION (WRVU 19.48) performed by Fito Summers MD at [facility] MAIN OR SOCIAL HX: Social History [...] sounds, tympanic to percussion RECTAL: performed with polishing machine tender present, no overt masses, fissures, external hemorrhoids, [...] who have questions please contact the health career services representative that requested your imaging first. Electronically signed by: Alan Brink MD, [facility] ([phone]), at 05/31/2022 11:[address] Abdomen & Pelvis w Contrast (Results Pending) [...] 07/02/2022 Office Visit Vascular Surgery Jing Ghosh, VEHICLE GLASS TECHNICIAN [facility] VASCULAR SURGERY [place], [place] [address] (Wo rk) 09/02/2022 Clinical Support Dermatology Thai Lynn MD [facility] DR JENNY BILLY-DERMAT [place], [place] [address] (Wo rk) 09/02/2022 Procedure visit Dermatology Jace Lynn MD [facility] DR JENNY BILLY-DERMAT [place], [place] [address] (Wo rk) 09/05/2022 Appointment Cardiology Trinity Reid MD [facility] CARDIOLOGY [place], [place] [address] (Wo rk) 09/05/2022 Office Visit Cardiology Trinity Reid MD [facility] CARDIOLOGY [place], [place] [address] (Wo rk) documented as of [...] P athologist Signature Neutrophils % 61.3 % [facility] LABORATORY Neutr Abs (ANC) 4.44 1.70 - [facility] 6.10 [facility] x10(3)/[facility] LABORATORY Lymphocytes % 25.2 % [facility] LABOR[facility]ORY Lymphocytes Abs 1.8 0.9 - 3.2 [facility] x10(3)/[facility] LABORATORY Monocytes % 10.0 % [facility] LABOR[facility] Monocyte Abs 0.7 0.3 - 0.9 [facility] x10(3)/[facility] LABORATORY Eosinophils % 2.1 % [facility] LABOR[facility] Eosinophils Abs 0.2 0.0 - 0.4 [facility] x10(3)/[facility] LABORATORY Basophils % 0.7 % [facility] LABOR[facility]ORY Basophils Abs 0.0 0.0 - 0.1 [facility] x10(3)/[facility] LABORATORY Immature Gran % 0.70 % [facility] LABORATORY Comment: Immature granulocytes(IG's)percentage an d absolute count will include metamyelocytes, myelocytes, and promyelo cytes. Blood smears from CBCs yielding IG's will be scanned manually for concor dance. If this scan disagrees with the automated IG or if promyelocytes are not ed, a manual differential will be performed. Rain Gran Abs 0.05 (H) 0.00 - 0.04 x10(3)/[facility] LABORATORY Specimen Anatomical Collection Method Collection Time Receive d Time (Source) Location / / Volume Laterality Blood 06/02/2022 8:20 AM 8:25 EDT AM EDT Resulting Agency Comment Spec In Lab Kurt Ames MD HEMATOLOGY ORDERABLES Performing Organization Address City/State/[place] [address] (ABNORMAL) Hemogram (06/02/2022 8:20 AM EDT) Analysis Performed At Patho logist Time Signature WBC 7.2 4.0 - 9.5 [facility] x10(3)/[facility] LABORATORY RBC 2.74 (L) 4.58 - [place] [address] [facility] x10(6)/[facility] LABORATORY Hemoglobin 8.7 (L) 13.7 - [facility] 16.5 g/dL [facility] LABORATORY Hematocrit 25.7 (L) 40.5 - [facility] 48.5 % [facility] LABORATORY MCV 93.8 (H) 82.9 - [facility] 93.1 [facility] LABORATORY MCH 31.8 27.5 - [place] 32.1 pg [facility] LABORATORY MCHC 33.9 32.0 - [place] 35.7 g/dL [facility] LABORATORY Platelets 260 145 - 357 [facility] x10(3)/[facility] LABORATORY RDWSD 51.0 (H) 36.0 - [facility] [place] 45.0 [facility] LABORATORY RDWCV 14.9 (H) 11.4 - [facility] [place] 13.8 % [facility] LABORATORY MPV 10.0 7.6 - 12.9 [facility] LABORATORY nRBC % Auto 0.0 % [facility] LABORATORY nRBC Abs Auto 0.000 0.000 - [facility] [place] [address] [facility] x10(3)/[facility] LABORATORY Specimen Anatomical Collection Method Collection Time Receive d Time (Source) Location / / Volume Laterality Blood 06/02/2022 8:20 AM 8:25 EDT AM EDT Resulting Agency Comment Spec In Lab Kurt Ames MD HEMATOLOGY ORDERABLES Performing Organization Address City/State/[place] [address] Heparin (unfractionated) Level (06/02/2022 6:30 AM EDT) P athologist Signature Heparin UFH 0.39 IU/mL [facility] LABORATORY Comment: Heparin (anti-Xa) levels [...] Organization Address City/State/[place] [address] Heparin (unfractionated) Level (06/02/2022 12:30 AM EDT) P athologist Signature Heparin UFH 0.81 IU/mL [facility] LABORATORY Comment: Heparin (anti-Xa) levels [...] Organization Address City/State/ZIP Code Phon e Number [address] Magnesium (06/02/2022 12:30 AM EDT) athologist Signature Magnesium 0.83 0.69 - 1.07 [facility] mmol/L [facility] LABORATORY Specimen Anatomical Collection Method Collection Time Receive d Time (Source) Location / / Volume Laterality Blood 06/02/2022 12:30 06/02/2022 AM EDT 12:40 AM EDT Resulting Agency Comment Spec In Lab Mahendra Victor MD CHEMISTRY ORDERABLES Performing Organization Address City/[facility] Code Phon e Number [address] (ABNORMAL) Basic Metabolic Panel (non-fasting) (06/02/2022 12:30 AM EDT) athologist Signature Glucose Lvl 151 65 - 199 [facility] mg/dL [facility] LABORATORY Comment: Diabetes: >=200 mg/dL plus symp toms BUN 12 10 - 20 mg/dL [facility] LABORATORY Creatinine 0.71 (L) 0.80 - 1.50 mg/dL [facility] LABORATORY Sodium 142 135 - 145 mmol/L [facility] LABOR[facility]ORY Potassium 3.8 3.5 - 5.0 mmol/L [facility] LAB[facility] Comment: Please note: ??Patients with [...] - 15 mmol/L [facility] LABORATORY Calcium 8.1 (L) 8.5 - 10.5 mg/dL [facility] LABORATORY Estimated GFR 93 >=60 mL/min/1.73 m?? [facility] LABORATORY [...] Organization Address City/State/ZIP Code Phon e Number [place] [phone]OSP[address] LAB[address]ORY [address] (ABNORMAL) Differential, Automated (06/01/2022 7:29 PM EDT) P athologist Signature Neutrophils % 68.8 % [facility] LABOR[facility]ORY Neutr Abs (ANC) 5.34 1.70 - [facility] [address] [facility] x10(3)/[facility] LABORATORY Lymphocytes % 19.6 % [facility] LABORATORY Lymphocytes Abs 1.5 0.9 - 3.2 [facility] x10(3)/[facility] LABORATORY Monocytes % 8.1 % [facility] LABORATORY Monocyte Abs 0.6 0.3 - 0.9 [facility] x10(3)/[facility] LABORATORY Eosinophils % 1.8 % [facility] LABORATORY Eosinophils Abs 0.1 0.0 - 0.4 [facility] x10(3)/[facility] LABORATORY Basophils % 0.8 % [facility] LABORATORY Basophils Abs 0.1 0.0 - 0.1 [facility] x10(3)/[facility] LABORATORY Immature Gran % 0.90 % [facility] LABOR[facility] Comment: Immature granulocytes(IG's)percentage an d absolute count will include metamyelocytes, myelocytes, and promyelo cytes. Blood smears from CBCs yielding IG's will be scanned manually for concneli danlara. If this scan disagrees with the automated IG or if promyelocytes are not ed, a manual differential will be performed. Rain Gran Abs 0.07 (H) 0.00 - 0.04 x10(3)/[facility] LABORATORY Specimen Anatomical Collection Method Collection Time Receive d Time (Source) Location / / Volume Laterality Blood 06/01/2022 7:29 PM 7:29 EDT PM EDT Resulting Agency Comment Spec In Lab Kurt Ames MD HEMATOLOGY ORDERABLES Performing Organization Address City/State/[place] [address] (ABNORMAL) Hemogram (06/01/2022 7:29 PM EDT) Analysis Performed At Patho logist Time Signature WBC 7.8 4.0 - 9.5 [facility] x10(3)/[facility] LABORATORY RBC 2.65 (L) 4.58 [facility] x10(6)/[facility] LABORATORY Hemoglobin 8.3 (L) 13.7 - [facility] g/dL [facility] LABORATORY Hematocrit 24.8 (L) 40.5 - [facility] 48.5 % [facility] LABORATORY MCV 93.6 (H) 82.9 - [facility] 93.1 [facility] LABORATORY MCH 31.3 27.5 - [facility] [place] 32.1 pg [facility] LABORATORY MCHC 33.5 32.0 - [facility] 35.7 g/dL [facility] LABORATORY Platelets 263 145 - 357 [facility] x10(3)/[facility] LABORATORY RDWSD 52.8 (H) 36.0 - [facility] 45.0 [facility] LABORATORY RDWCV 15.4 (H) 11.4 - [facility] 13.8 % [facility] LABORATORY MPV 10.4 7.6 - 12.9 [facility] LABORATORY nRBC % Auto 0.0 % [facility] LABORATORY nRBC Abs Auto 0.000 0.000 - [place] [address] [facility] x10(3)/[facility] LABORATORY Specimen Anatomical Collection Method Collection Time Receive d Time (Source) Location / / Volume Laterality Blood 06/01/2022 7:29 PM 2 7:29 EDT PM EDT Resulting Agency Comment Spec In Lab Kurt Ames MD HEMATOLOGY ORDERABLES Performing Organization Address City/[facility]/ZIP Code Phon e Number [place] [phone] HOSPITAL LABORATORY Drive Heparin (unfractionated) Level (06/01/2022 7:29 PM EDT) P athologist Signature Heparin UFH 0.81 IU/mL [facility] LABORATORY Comment: Heparin (anti-Xa) levels [...] Organization Address City/State/[place] [address] (ABNORMAL) Heparin (unfractionated) Level (06/01/2022 11:32 AM EDT) Patholo gist Method Time Signature Heparin UFH 1.05 IU/mL [facility] (Critical) [facility] LABORATORY Comment: Critical Result called by [...] Organization Address City/State/ZIP Code Phon e Number [place] [phone] HOSPITAL LAB[address]ORY Drive (ABNORMAL) Differential, Automated (06/01/2022 5:56 AM EDT) [facility] Method Time Signature Neutrophils % 62.7 % [facility] LABORATORY Neutr Abs (ANC) 6.11 (H) 1.70 - [facility] [address] [facility] x10(3)/[facility] LABORATORY Lymphocytes % 23.5 % [facility] LABORATORY Lymphocytes Abs 2.3 0.9 - 3.2 [facility] x10(3)/[facility] LABORATORY Monocytes % 10.0 % [facility] LABORATORY Monocyte Abs 1.0 (H) 0.3 - 0.9 [facility] x10(3)/[facility] LABORATORY Eosinophils % 2.2 % [facility] LABORATORY Eosinophils Abs 0.2 0.0 - 0.4 [facility] x10(3)/[facility] LABORATORY Basophils % 0.9 % [facility] LABORATORY Basophils Abs 0.1 0.0 - 0.1 [facility] x10(3)/[facility] LABORATORY Immature Gran % 0.70 % [facility] LABORATORY Comment: Immature granulocytes(IG's)percentage an d absolute count will include metamyelocytes, myelocytes, and promyelo cytes. Blood smears from CBCs yielding IG's will be scanned manually for concneli danlara. If this scan disagrees with the automated IG or if promyelocytes are not ed, a manual differential will be performed. Rain Gran Abs 0.07 (H) 0.00 - 0.04 x10(3)/[facility] LABORATORY Specimen Anatomical Collection Method Collection Time Receive d Time (Source) Location / / Volume Laterality Blood 06/01/2022 5:56 AM 6:05 EDT AM EDT Resulting Agency Comment Spec In Lab Arpita Valle MD HEMATOLOGY ORDERABLES Performing Organization Address City/State/ZIP Code Phon e Number [place] [phone] HOSPITAL LAB[address]ATORY Drive (ABNORMAL) Hemogram (06/01/2022 5:56 AM EDT) Analysis Performed At Patho logist Time Signature WBC 9.7 (H) 4.0 - 9.5 [facility] x10(3)/[facility] LABORATORY RBC 2.83 (L) 4.58 - [facility] 5.[address] [facility] x10(6)/[facility] LABORATORY Hemoglobin 9.0 (L) 13.7 - [facility] 16.5 g/dL [facility] LABORATORY Hematocrit 26.7 (L) 40.5 - [facility] 48.5 % [facility] LABORATORY MCV 94.3 (H) 82.9 - [facility] 93.1 [facility] LABORATORY MCH 31.8 27.5 - [facility] 32.1 pg [facility] LABORATORY MCHC 33.7 32.0 - [facility] 35.7 g/dL [facility] LABORATORY Platelets 250 145 - 357 [facility] x10(3)/[facility] LABORATORY RDWSD 54.3 (H) 36.0 - [facility] 45.0 [facility] LABORATORY RDWCV 15.9 (H) 11.4 - [facility] 13.8 % [facility] LABORATORY MPV 10.5 7.6 - 12.9 [facility] LABORATORY nRBC % Auto 0.0 % [facility] LABORATORY nRBC Abs Auto 0.000 0.000 - [facility] [address] [facility] x10(3)/[facility] LABORATORY Specimen Anatomical Collection Method Collection Time Receive d Time (Source) Location / / Volume Laterality Blood 06/01/2022 5:56 AM 2 6:05 EDT AM EDT Resulting Agency Comment Spec In Lab Arpita Valle MD HEMATOLOGY ORDERABLES Performing Organization Address City/State/[place] [address] Heparin (unfractionated) Level (06/01/2022 4:30 AM EDT) athologist Signature Heparin UFH 0.68 IU/mL [facility] LABORATORY Comment: Heparin (anti-Xa) levels [...] Organization Address City/State/[place] [address] (ABNORMAL) Urinalysis with reflex Culture (06/01/2022 4:00 AM EDT) Patholo gist Method Time Signature Glucose UA 500 Negative [facility] (Critical) mg/dL [facility] LABORATORY Comment: Urinalysis result NOT critical without a combination of Glucose greater than or equal to 500 mg/dL AND Ketones greate r than or equal to 80 mg/dL Protein UA Negative Negative mg/dL [facility] LABORATORY Bilirubin UA Negative Negative mg/dL [facility] LABORATORY Comment: Clinical correlation required for positi ve Urine Bilirubin results as false positive may occur with some drugs and d rug related products. If a false positive is suspected a serum total bili quarles should be considered if clinically indicated. Urobilinogen UA Normal Normal mg/dL [facility] LABORATORY pH UA 6.0 5.0 - 8.0 [facility] LABORATORY Blood UA Negative Negative mg/dL [facility] LABORATORY Ketones UA Negative Negative mg/dL [facility] LABORATORY Nitrite UA Negative Negative [facility] LABORATORY Leukocytes UA Negative Negative [facility] LABORATORY Appearance UA Clear Clear [facility] LABORATORY Spec [place] UA >=1.030 (A) 1.005 - 1.030 [facility] LABORATORY Color UA Yellow Yellow [facility] LABORATORY Culture Reflexed No [facility] LABORATORY Specimen Anatomical Collection Method Collection Time Receive d Time (Source) Location / / Volume Laterality Clean Catch 06/01/2022 4:00 AM 2 4:26 Urine EDT AM EDT Resulting Agency Comment Spec In Lab Mahendra Victor MD URINE ORDERABLES Performing Organization Address City/State/Z[place] [address] Magnesium (06/01/2022 1:00 AM EDT) P athologist Signature Magnesium 0.93 0.69 - 1.07 [facility] mmol/L [facility] LABORATORY Specimen Anatomical Collection Method Collection Time Receive d Time (Source) Location / / Volume Laterality Blood 06/01/2022 1:00 AM 2 1:37 EDT AM EDT Resulting Agency Comment Spec In Lab Mahendra Victor MD CHEMISTRY ORDERABLES Performing Organization Address City/State/[place] [address] (ABNORMAL) Basic Metabolic Panel (non-fasting) (06/01/2022 1:00 AM EDT) P athologist Signature Glucose Lvl 148 65 - 199 [facility] mg/dL [facility] LABORATORY Comment: Diabetes: >=200 mg/dL plus symp toms BUN 23 (H) 10 - 20 mg/dL [facility] LABORATORY Creatinine 0.78 (L) 0.80 - 1.50 mg/dL [facility] LABORATORY Sodium 141 135 - 145 mmol/L [facility] LABORATORY Potassium 4.0 3.5 - 5.0 mmol/L [facility] LABORATORY Comment: Please note: ??Patients with [...] mmol/L [facility] LABORATORY Anion Gap 9 5 - 15 mmol/L [facility] LABORATORY Calcium 8.6 8.5 - 10.5 mg/dL [facility] LABORATORY Estimated GFR 91 >=60 mL/min/1.73 m?? [facility] LABORATORY [...] / Volume Laterality Blood 06/01/2022 1:00 AM 1:37 EDT AM EDT Resulting Agency Comment Spec In Lab Mahendra Victor MD CHEMISTRY ORDERABLES Performing Organization Address City/State/[place] [address] (ABNORMAL) Differential, Automated (06/01/2022 12:00 AM EDT) P athologist Signature Neutrophils % 64.6 % [facility] LABORATORY Neutr Abs (ANC) 5.60 1.70 - [facility] [address] [facility] x10(3)/[facility] LABORATORY Lymphocytes % 22.4 % [facility] LABORATORY Lymphocytes Abs 1.9 0.9 - 3.2 [facility] x10(3)/[facility] LABORATORY Monocytes % 9.5 % [facility] LABORATORY Monocyte Abs 0.8 0.3 - 0.9 [facility] x10(3)/[facility] LABORATORY Eosinophils % 2.1 % [facility] LABORATORY Eosinophils Abs 0.2 0.0 - 0.4 [facility] x10(3)/[facility] LABORATORY Basophils % 0.6 % [facility] LABORATORY Basophils Abs 0.0 0.0 - 0.1 [facility] x10(3)/[facility] LABORATORY Immature Gran % 0.80 % [facility] LABORATORY Comment: Immature granulocytes(IG's)percentage an d absolute count will include metamyelocytes, myelocytes, and promyelo cytes. Blood smears from CBCs yielding IG's will be scanned manually for concor dance. If this scan disagrees with the automated IG or if promyelocytes are not ed, a manual differential will be performed. Rain Gran Abs 0.07 (H) 0.00 - 0.04 x10(3)/[facility] LABORATORY Specimen (Source) Anatomical Collection Method Collection Time Re ceived Time Location / / Volume Laterality Blood 06/01/2022 06/01/2022 12:1 0 AM EDT Resulting Agency Comment Spec In Lab Arpita Valle MD HEMATOLOGY ORDERABLES Performing Organization Address City/State/[place] [address] (ABNORMAL) Hemogram (06/01/2022 12:00 AM EDT) [facility] Time Signature WBC 8.7 4.0 - 9.5 [facility] x10(3)/[facility] LABORATORY RBC 2.77 (L) 4.58 - [place] [address] [facility] x10(6)/[facility] LABORATORY Hemoglobin 8.6 (L) 13.7 - [facility] 16.5 g/dL [facility] LABORATORY Hematocrit 25.7 (L) 40.5 - [facility] 48.5 % [facility] LABORATORY MCV 92.8 82.9 - [facility] 93.1 [facility] LABORATORY MCH 31.0 27.5 - [place] 32.1 pg [facility] LABORATORY MCHC 33.5 32.0 - [place] 35.7 g/dL [facility] LABORATORY Platelets 260 145 - 357 [facility] x10(3)/[facility] LABORATORY RDWSD 51.9 (H) 36.0 - [place] 45.0 [facility] LABORATORY RDWCV 15.5 (H) 11.4 - [facility] [place] 13.8 % [facility] LABORATORY MPV 10.4 7.6 - 12.9 [facility] LABORATORY nRBC % Auto 0.0 % [facility] LABORATORY nRBC Abs Auto 0.000 0.000 - [facility] [place] [address] [facility] x10(3)/[facility] LABORATORY Specimen (Source) Anatomical Collection Method Collection Time Re ceived Time Location / / Volume Laterality Blood 06/01/2022 06/01/2022 12:1 0 AM EDT Resulting Agency Comment Spec In Lab Arpita Valle MD HEMATOLOGY ORDERABLES Performing Organization Address City/State/Z[place] [address] (ABNORMAL) Differential, Automated (05/31/2022 9:17 PM EDT) P athologist Signature Neutrophils % 59.6 % [facility] LABORATORY Neutr Abs (ANC) 3.98 1.70 - [facility] [address] [facility] x10(3)/[facility] LABORATORY Lymphocytes % 27.5 % [facility] LABORATORY Lymphocytes Abs 1.8 0.9 - 3.2 [facility] x10(3)/[facility] LABORATORY Monocytes % 9.1 % [facility] LABORATORY Monocyte Abs 0.6 0.3 - 0.9 [facility] x10(3)/[facility] LABORATORY Eosinophils % 2.4 % [facility] LABORATORY Eosinophils Abs 0.2 0.0 - 0.4 [facility] x10(3)/[facility] LABORATORY Basophils % 0.7 % [facility] LABORATORY Basophils Abs 0.0 0.0 - 0.1 [facility] x10(3)/[facility] LABORATORY Immature Gran % 0.70 % [facility] LABORATORY Comment: Immature granulocytes(IG's)percentage an d absolute count will include metamyelocytes, myelocytes, and promyelo cytes. Blood smears from CBCs yielding IG's will be scanned manually for concor dance. If this scan disagrees with the automated IG or if promyelocytes are not ed, a manual differential will be performed. Rain Gran Abs 0.05 (H) 0.00 - 0.04 x10(3)/[facility] LABORATORY Specimen Anatomical Collection Method Collection Time Receive d Time (Source) Location / / Volume Laterality Blood 05/31/2022 9:17 PM 9:25 EDT PM EDT Resulting Agency Comment Spec In Lab Arpita Valle MD HEMATOLOGY ORDERABLES Performing Organization Address City/State/Z[place] [address] (ABNORMAL) Hemogram (05/31/2022 9:17 PM EDT) Analysis Performed At Patho logist Time Signature WBC 6.7 4.0 - 9.5 [facility] x10(3)/[facility] LABORATORY RBC 2.74 (L) 4.58 [facility] x10(6)/[facility] LABORATORY Hemoglobin 8.5 (L) 13.7 - [facility] g/dL [facility] LABORATORY Hematocrit 25.7 (L) 40.5 - [facility] 48.5 % [facility] LABORATORY MCV 93.8 (H) 82.9 - [facility] 93.1 [facility] LABORATORY MCH 31.0 27.5 - [facility] 32.1 pg [facility] LABORATORY MCHC 33.1 32.0 - [facility] 35.7 g/dL [facility] LABORATORY Platelets 233 145 - 357 [facility] x10(3)/[facility] LABORATORY RDWSD 51.9 (H) 36.0 - [facility]0 [facility] LABORATORY RDWCV 15.3 (H) 11.4 - [facility] 13.8 % [facility] LABORATORY MPV 10.3 7.6 - 12.9 [facility] LABORATORY nRBC % Auto 0.0 % [facility] LABORATORY nRBC Abs Auto 0.000 0.000 - [facility] x10(3)/[facility] LABORATORY Specimen Anatomical Collection Method Collection Time Receive d Time (Source) Location / / Volume Laterality Blood 05/31/2022 9:17 PM 9:25 EDT PM EDT Resulting Agency Comment Spec In Lab Arpita Valel MD HEMATOLOGY ORDERABLES Performing Organization Address City/State/Z[place] [address] Transfuse RBC (05/31/2022 7:36 PM EDT) Regina Hinds MD NURSING TREATMENT ORDERABLES - BLOOD ADMIN Transfuse RBC (05/31/2022 7:36 PM EDT) Regina Hinds MD NURSING TREATMENT ORDERABLES - BLOOD ADMIN UPPER GI ENDOSCOPY (05/31/2022 3:37 PM EDT) Component Value Ref Test Analysis Performed At [facility] Range Method Time Signature UPPER GI [facility] PROVATION ENDOSCOPY Endoscopy Procedure Date: 05/31/2022 3:37 PM ? Patient Name: Koko Zamora ? Date of : 1940 ? Age: 81 ? Order #: [id number] ? Instrument Name: [id number] ? Procedure: ? Upper GI endoscopy Indications: ? Melena, Suspected upper ? gastrointestinal bleeding Providers: ? Torrey Munoz , ? Vani Wei, RN, Juhi Maxwell, ? Alannah Hutchinson, Torres gomez Referring : ?Regina Hinds Medicines: ? Propofol per Anesthesia [...] Endoscope w as ? introduced through the [facility], and ? advanced to the fourth par [...] Procedure Code(s): ? --- Professional --- ? 05216, Esophagogastroduode noscopy, ? flexible, transoral; with control [...] stomach ? and duodenum CPT copyright 2020 [employer]. All rights reserved. The codes documented in this report are preliminary and upon tile helper review may be revised to meet current compliance requirements. Attending Participation: ? I was present and participated during the entire ? procedure, including non-diaz portions. ? Giovani Gomez Kris, 05/31/2022 4:56:14 PM Number of Addenda: 0 [...] who have questions please contact the health career services representative that requested your imaging first. ? [...] enlarged lymph nodes. Vasculature: Patent common iliac, environmental compliance specialist al iliac, and common femoral arteries [...] enlarged lymph nodes. Vasculature: Patent common iliac, environmental compliance specialist al iliac, and common femoral arteries [...] ho have questions please contact the health career services representative that requested your imaging first. Regina Hinds MD IMG CT ORDERABLES Type and Screen Validity (05/31/2022 1:43 PM EDT) [facility] Method Time Signature T&S only valid [facility] LABORATORY Comment: This Type and Screen result is only valid at the [facility] Specimen Anatomical Collection Method Collection Time Receive d Time (Source) Location / / Volume Laterality Blood 05/31/2022 1:43 PM 2 1:57 EDT PM EDT Resulting Agency Comment Spec In Lab Regina Hinds MD BLOOD BANK ORDERABLES Performing Organization Address City/State/[place] [address] ABORH Recheck Status (05/31/2022 1:43 PM EDT) [facility] Time Signature ABORH Type Completed [facility] LABORATORY Specimen Anatomical Collection Method Collection Time Receive d Time (Source) Location / / Volume Laterality Blood 05/31/2022 1:43 PM 2 1:57 EDT PM EDT Resulting Agency Comment Spec In Lab Regina Hinds MD BLOOD BANK ORDERABLES Performing Organization Address City/State/[place] [address] Antibody screen (05/31/2022 1:43 PM EDT) [facility] Time Signature Ab Screen Negative [facility] LABORATORY Expires at 06/03/2022 [place] [id number] on: [facility] LABORATORY Specimen Anatomical Collection Method Collection Time Receive d Time (Source) Location / / Volume Laterality Blood 05/31/2022 1:43 PM 2 1:57 EDT PM EDT Resulting Agency Comment Spec In Lab Regina Hinds MD BLOOD BANK ORDERABLES Performing Organization Address City/[facility]/[place] [address] ABO/Rh Typing (05/31/2022 1:43 PM EDT) athologist Signature ABORh Type O Pos [facility] LABORATORY Specimen Anatomical Collection Method Collection Time Receive d Time (Source) Location / / Volume Laterality Blood 05/31/2022 1:43 PM 2 1:57 EDT PM EDT Resulting Agency Comment Spec In Lab Regina Hinds MD BLOOD BANK ORDERABLES Performing Organization Address City/[facility]/[place] [address] Prepare RBC (05/31/2022 1:35 PM EDT) P athologist Signature Dispensed? Yes [facility] LABORATORY Specimen Anatomical Collection Method Collection Time Receive d Time (Source) Location / / Volume Laterality Blood 05/31/2022 1:35 PM 2 1:30 EDT PM EDT Regina Hinds MD BLOOD BANK ORDERABLES Performing Organization Address City/[facility]/[place] [address] Prepare RBC (05/31/2022 1:25 PM EDT) P athologist Signature Dispensed? Yes [facility] LABORATORY Specimen Anatomical Collection Method Collection Time Receive d Time (Source) Location / / Volume Laterality Blood 05/31/2022 1:25 PM 2 1:23 EDT PM EDT Regina Hinds MD BLOOD BANK ORDERABLES Performing Organization Address City/[facility] [place] [address] (ABNORMAL) Differential, Automated (05/31/2022 12:44 PM EDT) P athologist Signature Neutrophils % 62.0 % [facility] LABORATORY Neutr Abs (ANC) 4.71 1.70 - [facility] [address] [facility] x10(3)/[facility] LABORATORY Lymphocytes % 24.1 % [facility] LABORATORY Lymphocytes Abs 1.8 0.9 - 3.2 [facility] x10(3)/[facility] LABORATORY Monocytes % 10.8 % [facility] LABORATORY Monocyte Abs 0.8 0.3 - 0.9 [facility] x10(3)/[facility] LABORATORY Eosinophils % 1.6 % [facility] LABORATORY Eosinophils Abs 0.1 0.0 - 0.4 [facility] x10(3)/[facility] LABORATORY Basophils % 0.7 % [facility] LABORATORY Basophils Abs 0.0 0.0 - 0.1 [facility] x10(3)/[facility] LABORATORY Immature Gran % 0.80 % [facility] LABORATORY Comment: Immature granulocytes(IG's)percentage an d absolute count will include metamyelocytes, myelocytes, and promyelo cytes. Blood smears from CBCs yielding IG's will be scanned manually for concor dance. If this scan disagrees with the automated IG or if promyelocytes are not ed, a manual differential will be performed. Rain Gran Abs 0.06 (H) 0.00 - 0.04 x10(3)/[facility] LABORATORY Specimen Anatomical Collection Method Collection Time Receive d Time (Source) Location / / Volume Laterality Blood 05/31/2022 12:44 05/31/2022 PM EDT 12:57 PM EDT Resulting Agency Comment Spec In Lab Brittany Ramirez MD HEMATOLOGY ORDERABLES Performing Organization Address City/State/Z[place] [address] (ABNORMAL) Hemogram (05/31/2022 12:44 PM EDT) Analysis Performed At Patho logist Time Signature WBC 7.6 4.0 - 9.5 [facility] x10(3)/[facility] LABORATORY RBC 2.11 (L) 4.58 - [facility] [address] [facility] x10(6)/[facility] LABORATORY Hemoglobin 6.9 (L) 13.7 - [facility] 16.5 g/dL [facility] LABORATORY Hematocrit 20.8 (L) 40.5 - [facility] 48.5 % [facility] LABORATORY MCV 98.6 (H) 82.9 - [facility] 93.1 fL [facility] LABORATORY MCH 32.7 (H) 27.5 - [facility] 32.1 pg [facility] LABORATORY MCHC 33.2 32.0 - [place] 35.7 g/dL [facility] LABORATORY Platelets 255 145 - 357 [facility] x10(3)/[facility] LABORATORY RDWSD 47.7 (H) 36.0 - [facility] 45.0 [facility] RDWCV 13.4 11.4 - [facility] 13.8 % [facility] MPV 10.7 7.6 - 12.9 [facility] nRBC % Auto 0.0 % [facility] LABORATORY nRBC Abs Auto 0.000 0.000 - [facility] [address] [facility] x10(3)/[facility] LABORATORY Specimen Anatomical Collection Method Collection Time Receive d Time (Source) Location / / Volume Laterality Blood 05/31/2022 12:44 05/31/2022 PM EDT 12:57 PM EDT Resulting Agency Comment Spec In Lab Brittany Ramirez MD HEMATOLOGY ORDERABLES Performing Organization Address City/State/[place] [address] (ABNORMAL) BLOOD GAS 2 VENOUS (05/31/2022 11:24 AM EDT) P athologist Signature pH Marco Antonio 7.38 7.32 - [facility] 7.42 [facility] LABORATORY pCO2 Marco Antonio 40 (L) 41 - 51 [facility] LABORATORY pO2 Marco Antonio 18 (L) 25 - 40 [facility] LABORATORY HCO3 Marco Antonio 23.3 mmol/L [facility] LABORATORY BE Marco Antonio -1.8 mmol/L [facility] LABORATORY Hgb Blood Gas 7.0 (L) 13.7 - [facility] 16.5 g/dL [facility] O2HB Marco Antonio 24.3 % [facility] LABORATORY COHB Marco Antonio 1.4 % [facility] LABORATORY Comment: Nonsmokers: 0.5-1.5% COHB Smokers: Variable, but usually less than 10% Toxic: 20-30% COHB Lethal: Greater than 60% COHB METHB Marco Antonio 1.7 (H) <=1.5 % [facility] LABORATORY Na Whole Blood 137 135 - 145 mmol/L [facility] LABORATORY K Whole Blood 3.9 3.5 - 5.0 mmol/L [facility] LABORATORY Comment: Please note: Patients with WBC >100,000 may have falsely elevated Potassium levels. Contact the Clinical Chemistry L aboratory if there are any questions. ICa Whole Blood 1.19 1.15 - 1.33 mmol/L [facility] LABORATORY Comment: Note: ??Total bilirubin higher than 20 m g/dL may lead to falsely low ionized calcium. CL Whole Blood 107 98 - 107 mmol/L [facility] LABORATORY Gluc Whole Bld 204 (H) 65 - 199 mg/dL [facility] LABORATORY Comment: Diabetes: >=200 mg/dL plus symp toms Lactate WB 1.4 0.5 - 2.2 mmol/L [facility] LABORATORY BGas Source Venous [facility] LABORATORY Specimen Anatomical Collection Method Collection Time Receive d Time (Source) Location / / Volume Laterality Blood 05/31/2022 11:24 05/31/2022 AM EDT 11:24 AM EDT Regina Hinds MD CHEMISTRY ORDERABLES Performing Organization Address City/[facility]/ZIP Code Phon e Number [address] T[facility] (05/31/2022 11:20 AM EDT) P athologist Signature TSH 1.67 0.27 - 4.20 [facility] mcIU/mL [facility] LABORATORY Comment: Reference Interval (mcIU/mL): Females: ??First Trimester: 0.23-3.88 ??Second Trimester: 0.22-3.90 ??Third Trimester: 0.44-4.66 Specimen Anatomical Collection Method Collection Time Receive d Time (Source) Location / / Volume Laterality Blood 05/31/2022 11:20 05/31/2022 AM EDT 11:28 AM EDT Resulting Agency Comment Spec In Lab Regina Hinds MD CHEMISTRY ORDERABLES Performing Organization Address City/[facility]/ZIP Code Phon e Number [address] XR Chest PA & [...] who have questions please contact the health career services representative that requested your imaging first. ? Electronically signed by: Alan strong MD, [facility] ([phone]), at 05/31/2022 11:33 AM Narrative 05/31/2022 11:33 [...] ho have questions please contact the health career services representative that requested your imaging first. Electronically signed by: Alan strong MD, [facility] ([phone]), at 05/31/2022 11:33 AM Regina Hinds MD IMG DX ORDERABLES Lipase (05/31/2022 10:50 AM EDT) athologist Signature Lipase 41 0 - 60 [facility] unit/L [facility] LABORATORY Specimen Anatomical Collection Method Collection Time Receive d Time (Source) Location / / Volume Laterality Blood Venous Draw / 05/31/2022 10:50 05/31/2022 Unknown AM EDT 11:11 AM EDT Resulting Agency Comment Spec In Lab Zain Champion MD CHEMISTRY ORDERABLES Performing Organization Address City/State/Z[place] [address] (ABNORMAL) Hepatic Function Panel (05/31/2022 10:50 AM EDT) Analysis Performed At Patho logist Time Signature Total Protein 6.4 6.1 - 8.0 [facility] g/dL [facility] LABORATORY Albumin 4.1 3.2 - 5.2 [facility] g/dL [facility] LABORATORY AST 24 0 - 39 [facility] unit/L [facility] LABORATORY ALT 44 0 - 55 [facility] unit/L [facility] LABORATORY Alk Phos 63 40 - 130 [facility] unit/L [facility] LABORATORY Total <0.2 (L) 0.2 - 1.3 [facility] Bilirubin mg/dL [facility] LABORATORY Bili, Direct 0.1 0.0 - 0.3 [facility] mg/dL [facility] LABORATORY Specimen Anatomical Collection Method Collection Time Receive d Time (Source) Location / / Volume Laterality Blood Venous Draw / 05/31/2022 10:50 05/31/2022 Unknown AM EDT 11:11 AM EDT Resulting Agency Comment Spec In Lab Zain Champion MD CHEMISTRY ORDERABLES Performing Organization Address City/[facility]/ZIP Code Phon e Number [address] Blue Tube HOLD (05/31/2022 10:50 AM EDT) P athologist Signature Blue Hold Sample in [facility]. [facility] LABORATORY Specimen Anatomical Collection Method Collection Time Receive d Time (Source) Location / / Volume Laterality Blood Venous Draw / 05/31/2022 10:50 05/31/2022 Unknown AM EDT 11:05 AM EDT Brittany Ramirez MD HEMATOLOGY ORDERABLES Performing Organization Address City/[facility]/ZIP Code Phon e Number [address] (ABNORMAL) Differential, Automated (05/31/2022 10:50 AM EDT) P athologist Signature Neutrophils % 66.9 % [facility] LABORATORY Neutr Abs (ANC) 5.58 1.70 - [facility] [place] [address] [facility] x10(3)/[facility] LABORATORY Lymphocytes % 22.2 % [facility] LABORATORY Lymphocytes Abs 1.8 0.9 - 3.2 [facility] x10(3)/[facility] LABORATORY Monocytes % 7.8 % [facility] LABORATORY Monocyte Abs 0.6 0.3 - 0.9 [facility] x10(3)/[facility] LABORATORY Eosinophils % 1.2 % [facility] LABORATORY Eosinophils Abs 0.1 0.0 - 0.4 [facility] x10(3)/[facility] LABORATORY Basophils % 0.7 % [facility] LABORATORY Basophils Abs 0.1 0.0 - 0.1 [facility] x10(3)/[facility] LABORATORY Immature Gran % 1.20 % [facility] LABORATORY Comment: Immature granulocytes(IG's)percentage an d absolute count will include metamyelocytes, myelocytes, and promyelo cytes. Blood smears from CBCs yielding IG's will be scanned manually for concor dance. If this scan disagrees with the automated IG or if promyelocytes are not ed, a manual differential will be performed. Rain Gran Abs 0.10 (H) 0.00 - 0.04 x10(3)/[facility] LABORATORY Specimen Anatomical Collection Method Collection Time Receive d Time (Source) Location / / Volume Laterality Blood 05/31/2022 10:50 05/31/2022 AM EDT 11:03 AM EDT Resulting Agency Comment Spec In Lab Brittany Ramirez MD HEMATOLOGY ORDERABLES Performing Organization Address City/State/ZIP [place] [address] (ABNORMAL) Hemogram (05/31/2022 10:50 AM EDT) Analysis Performed At Patho logist Time Signature WBC 8.3 4.0 - 9.5 [facility] x10(3)/[facility] LABORATORY RBC 2.26 (L) 4.58 [facility] [facility] x10(6)/[facility] LABORATORY Hemoglobin 7.4 (L) 13.7 - [facility] 16.5 g/dL [facility] LABORATORY Hematocrit 22.3 (L) 40.5 - [facility] 48.5 % [facility] LABORATORY MCV 98.7 (H) 82.9 - [facility] 93.1 fL [facility] LABORATORY MCH 32.7 (H) 27.5 - [facility] 32.1 pg [facility] LABORATORY MCHC 33.2 32.0 - [facility] 35.7 g/dL [facility] LABORATORY Platelets 283 145 - 357 [facility] x10(3)/[facility] LABORATORY RDWSD 47.0 (H) 36.0 - [place]AGEN 45.0 [facility] LABORATORY RDWCV 13.4 11.4 - [place] 13.8 % [facility] LABORATORY MPV 10.8 7.6 - 12.9 [facility] LABORATORY nRBC % Auto 0.0 % [facility] LABORATORY nRBC Abs Auto 0.000 0.000 - [place] [address] [facility] x10(3)/[facility] LABORATORY Specimen Anatomical Collection Method Collection Time Receive d Time (Source) Location / / Volume Laterality Blood 05/31/2022 10:50 05/31/2022 AM EDT 11:03 AM EDT Resulting Agency Comment Spec In Lab Brittany Ramirez MD HEMATOLOGY ORDERABLES Performing Organization Address City/[facility]/ZIP [facility] Phon e Number [address] Phosphorus (05/31/2022 10:50 AM EDT) P athologist Signature Phosphorus 3.2 2.5 - 4.5 [facility] mg/dL [facility] LABORATORY Specimen Anatomical Collection Method Collection Time Receive d Time (Source) Location / / Volume Laterality Blood 05/31/2022 10:50 05/31/2022 AM EDT 11:03 AM EDT Resulting Agency Comment Spec In Lab Regina Hinds MD CHEMISTRY ORDERABLES Performing Organization Address City/[facility]/ZIP Code Phon e Number [address] Magnesium (05/31/2022 10:50 AM EDT) P athologist Signature Magnesium 0.93 0.69 - 1.07 [place] mmol/L [facility] LABORATORY Specimen Anatomical Collection Method Collection Time Receive d Time (Source) Location / / Volume Laterality Blood 05/31/2022 10:50 05/31/2022 AM EDT 11:03 AM EDT Resulting Agency Comment Spec In Lab Regina Hinds MD CHEMISTRY ORDERABLES Performing Organization Address City/[facility]/ZIP [place] [address] (ABNORMAL) pro-Brain Natriuretic Peptide (05/31/2022 10:50 AM EDT) athologist Signature ProBNP 1,077 (H) <=449 [place] [place] pg/mL [facility] LABORATORY Specimen Anatomical Collection Method Collection Time Receive d Time (Source) Location / / Volume Laterality Blood 05/31/2022 10:50 05/31/2022 AM EDT 11:03 AM EDT Resulting Agency Comment Spec In Lab Regina Hinds MD CHEMISTRY ORDERABLES Performing Organization Address City/State/ZIP [place] [address] Troponin (05/31/2022 10:50 AM EDT) athologist Signature Troponin-T <0.01 0.00 - 0.00 [facility] ng/mL [facility] LABORATORY Comment: The 99th percentile for [...] additional sample may be indicated. Reference: Third [place] Definition of Myocardial Infarction. Journal of the [place] [employer] 2012;60:1581-98 Specimen Anatomical Collection Method Collection Time Receive d Time (Source) Location / / Volume Laterality Blood 05/31/2022 10:50 05/31/2022 AM EDT 11:03 AM EDT Resulting Agency Comment Spec In Lab Regina Hinds MD CHEMISTRY ORDERABLES Performing Organization Address City/State/Z[place] [address] (ABNORMAL) Basic Metabolic Panel (non-fasting) (05/31/2022 10:50 AM EDT) athologist Signature Glucose Lvl 223 (H) 65 - 199 [facility] mg/dL [facility] LABORATORY Comment: Diabetes: >=200 mg/dL plus symp toms BUN 39 (H) 10 - 20 mg/dL [facility] LABORATORY Creatinine 0.91 0.80 - 1.50 mg/dL [facility] LABORATORY Sodium 140 135 - 145 mmol/L [facility] LABORATORY Potassium 4.1 3.5 - 5.0 mmol/L [facility] LABORATORY Comment: Please note: ??Patients with [...] - 15 mmol/L [facility] LABORATORY Calcium 9.1 8.5 - 10.5 mg/dL [facility] LABORATORY Estimated GFR 86 >=60 mL/min/1.73 m?? [facility] LABORATORY [...] Organization Address City/State/[place] [address] EKG 12 Lead (05/31/2022 10:11 AM EDT) Component Value Ref Range Test Analysis Performed Pathologis t Method Time At Signature Ventricular rate 106 BPM MUSE SYSTEM QRS Duration 122 ms MUSE SYSTEM Q-T Interval 368 ms MUSE SYSTEM QTC Calculated 488 ms MUSE SYSTEM (Bezet) Calculated R Wyatt -43 degrees MUSE SYSTEM Calculated T Wyatt 109 degrees MUSE SYSTEM INTERPRETATION Atrial fibrillation with rapid ventricular response MUSE SYSTEM Left axis deviation Minimal voltage criteria for LVH, may be normal variant ( [place] product ) Cannot rule out Anterior infarct , age undetermined Abnormal ECG When compared with ECG of 20-MAY-2022 19:04, No significant change was found I personally reviewed the tracing and edited the fellows int erpretation Confirmed by fellow MD Mike, [place] ([id number]) on 022 8:36:21 PM Confirmed by MD [...] at 2013, Until Fri06/02/22 at 1702, Per Pro tocol, [...] on Fri05/31/22 at 2015, Until Fri06/02/22 at 1702, Begin infusion at [...] 2108 (Given - Provider: Raven Barbour RN) 0934 (Given - Provider: Trinidad Saenz RN) 0813 (Given - Provider: Trinidad Saenz RN) 1 spray, Each Nare, DAILY, First dose on 05/31/22 at 2016, Until Discontinued, Routine lidocaine (Lidoderm) [...] Angella Floyd RN)210 (Given - Provider: Raven Barbour RN) 0812 [...] 2118 (Given - Provider: Raven Barbour RN) 0813 (Given - Provider: Trinidad Saenz RN)2042 (Given - Provider: Raven Barbour, DION) 0814 (Given - Provider: Trinidad Saenz RN) [...] chloride 0.45% 500 mL infusion(Linked Group 2) 2229 (New Bag - Provider: Raven Barbour RN) [...] Group 2) 0-4,000 Units, Intravenous, BOLUS PER ABRAHAM PROTOCOL, Starting on Fri05/31/22 at 2013, [...] - Less than 0.1 international unit/mL: [employer] [address] glassware replacer 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
Routine documented in this encounter Care Teams Toll Line Mechanic Relationship Specialty Start Date End Date Abby Das MD PCP - General 10/02/[address] [place] [address] [phone] documented as of this encounter
--- OUTSIDE RECORDS SUMMARY | 2022-06-28 11:07 | XMS_ITS | Encounter Summary ---
:1940 [place] [address] Care Team Providers Name Role Phone Bobby Das MD Primary Care Provider Reason for Referral Diagnostic Test (Routine) - Closed Specialty Diagnoses / Procedures Referred By Contact Refer red To Contact Cardiology Diagnoses Paroxysmal atrial fibrillation Nasrin Parra PA [facility] Non-Inv Card Lab Procedures Ziopatch 48 Hrs-15 Days [facility] VASCULAR SURGERY [place], [place] [id number] [place] [phone] Fax: Referral ID Status Reason Start Date Expiration Date Visits V isits Requested Authorized [id number] Closed Specialty 05/21/2022 10/21/2022 1 1 Service Requested Reason for Visit Auth/Cert Specialty Diagnoses / Procedures Referred By Contact Refer red To Contact Diagnoses Limb ischemia LLE thrombus Fito Summers MD [facility] [place] [address] Referral ID Status Reason Start Date Expiration Date Visits Requ ested Visits Authorized [id number] 1 1 Encounter Details Date Type Department Care Team Description 05/21/2022 Hospital Encounter Non-Invasive Paroxysma l atrial [place] [phone] Social History Tobacco Use Types Packs/Day [...] 04/12/20 21 (FLONASE) 50 mcg/actuation Nare route [place], Suspension daily as needed. fluorouraciL (EFUDEX) 5 [...] Office Visit Vascular Surgery Jing Ghosh APRN [facility] VASCULAR SURGERY [place], [place] [address] (Wo rk) 09/02/2022 Clinical Support Dermatology Thai Lynn MD [facility] DR [place], [place] [address] (Wo rk) 09/02/2022 Procedure visit Dermatology Jace Lynn MD [facility] DR [place], [place] [address] (Wo rk) 09/05/2022 Appointment Cardiology Trinity Reid MD [facility] CARDIOLOGY [place], [place] [address] (Wo rk) 09/05/2022 Office Visit Cardiology Trinity Reid MD [facility] CARDIOLOGY [place], [place] [address] (Wo rk) documented as of [...] fibrillation documented in this encounter Care Teams Disc Pad Grinding Machine Feeder Relationship Specialty Start Date End Date Bobby Das MD PCP - General 10/02/[address] [place] [address] [place] [phone] documented as of this encounter
--- OUTSIDE RECORDS SUMMARY | 2022-06-28 11:07 | XMS_ITS | Encounter Summary ---
:1940 [place] [address] Care Team Providers Name Role Phone Bobby Das MD Primary Care Provider Reason for Visit Reason Comments Left Leg Pain Auth/Cert Specialty Diagnoses / Procedures Referred By Contact Refer red To Contact Diagnoses Limb ischemia LLE thrombus Fito Summers MD [facility] [place] [address] Referral ID Status Reason Start Date Expiration Date Visits Requ ested Visits Authorized [id number] 1 1 Encounter Details Date Type Department Care Team Description 05/20/2022 Surgery Rent Collector Abundio Mcguire , CARDIAC CATHE[facility] [place] [address] CARDIOLOGY [phone] [place], [place] [address] (Wo rk) Social History Tobacco [...] onset Afib who presents in transfer from [facility] with acute limb ischemia of [...] emergently went to the OR for L ORDER DISPATCHER transverse arteriotomy and primary repair, thromboembolectomy of L SFA/PFA/ORDER DISPATCHER, reperfusion venous drainage for 250 cc, and [...] Discharge Condition: Good Discharge to: Home with [address] [address] Future Appointments and Orders Future Appointments and Orders Future Appointments Provider Department Dept Phone 05/23/2022 10:30 AM Loretta Cohen MD Dermatology at [facility] Arrive at: Underwear Cutter [address] [place] [address] 06/07/2022 1:30 PM Gail Rae APRN Vascular Surgery at [facility] Arrive at: Underwear Cutter [address] [phone] 06/13/2022 7:30 AM Edson Lagos [place] Vascular Lab at [facility] Arrive at: Underwear Cutter Area 06/13/2022 8:00 AM Fito uSmmers MD Vascular Surgery at [facility] Arrive at: Underwear Cutter Area 3V [phone] 06/13/2022 10:00 AM Alan Reid MD Cardiology at [facility] Arrive at: Underwear Cutter Area [phone] Future Orders Complete By Expires Ziopatch 48 Hrs-15 Days [[id number] CPT(R)] 05/21/2022 11/20/2022 Process Instructions: Scheduling Instructions: Comments: Questions: Does the patient have a pacemaker? If yes provide HI/LO settings: Apply for 7 or 14 days?: 7 Where will study be performed?: [facility] Clinics JOSSELYN, legs, multiple levels [VAS8 Custom] 06/21/2022 (Approximate) 12/21/2022 Process Instructions: There is no in-house vascular offset label rewinder available on weeknights (5pm-8am), weekends, or holidays. IF THIS IS A REQUEST FOR AN EMERGENT STUDY DURING THOSE HOURS, please have the senior provider responsible for the patient page the Vascular Surgery Fellow/Senior Resident airborne missions systems to discuss options. Scheduling Instructions: Questions: Indication for study/signs & symptoms: ALI s/p L fem cutdown with thromboembolectomy Question to be answered: Perfusion to feet? Please check toe pressure Preferred location?: [facility] Clinics Referral to Cardiology [REF12 Custom] As [...] Koko Zamora for admission to Home Health. [address] [place] [phone] (home) Date of : 1940 Inpatient DOCUMENTATION FOR VNA SERVICES (INCLUDING THOSE PATIENTS WITH MEDICARE COVERAGE REQUIRING HOME VNA SERVICES AND/OR HOSPICE SERVICES) PATIENT'S LOCATION: Koko Zamora [address] [place] [phone] (home) Cell: No relevant phone numbers on file. Mercury Cell Cleaner's Name: Koko In discussion with the attending physician, it is certified that this patient is under their care and that they, or a Nurse Practitioner,Clinical Nurse specialist or Physician Full Stack Python Developer who is working directly with them, had [...] for managing ADL's. HOME HEALTH CARE AGENCY: [facility]. [address] [place] [address] Start of care: Within 24 to 48 [...] obtained from this patient'sPCP: Bobby Das MD [address] [place] [address] [place] [address] All VNA agencies which cover the [...] For any problems or questions please call [phone] For issues on weeknights after 5pm and weekends please call [phone] and ask for the Vascular Fellow airborne missions systems. JOSEE Santiago Vascular Surgery 05/21/2022 documented in [...] For any problems or questions please call [phone] For issues on weeknights after 5pm and weekends please call [phone] and ask for the Vascular Fellow airborne missions systems. documented in this encounter Medications at Time [...] 04/12/20 21 (FLONASE) 50 mcg/actuation Nare route [place], Suspension daily as needed. fluorouraciL (EFUDEX) 5 [...] onset Afib who presents in transfer from [facility] with acute limb ischemia of [...] status, full code. JOSEE Santiago 05/21/2022 Pager: [phone] Brannon Isaacs, PT - 05/21/2022 10:35 AM [...] plan as stated. Time IN / OUT: 8591-6790 Total Minutes, Physical Therapy: 25 Billing Code: 2 BOSTON Isaacs DPT Pager: [phone] Physical Therapy Inpatient Rehabilitation Department [place] Jean [...] from 05/15/2022 in Intermediate Cardiac Care Unit [facility] Office Visit from 04/17/2021 in Pain and Spine Center at [facility] Weight 79.8 kg (175 lb 14.8 oz) [...] and plan of care per Dr. Mcnamara (design cell engineer). Please refer to her note above for [...] limb ischemia (thromboembolic) and he is a usp smoker (1/2 ppd, recommend nicotine patch). His [...] 04/17/2021 in Pain and Spine Center at [facility] Weight 79.8 kg (175 lb 14.8 oz) [...] findings andplan of care per Dr. Mcnamara (design cell engineer). Please refer to her note above for [...] a mitral repair in 2000 (not at [facility]) with no CAD at that time. Currently, [...] AF and the first documented HR at [facility] was 125 bpm (presented to an an [...] onset Afib who presents in transfer from [facility] with acute limb ischemia of [...] management following Dottie Hill APRN 05/20/2022 Pager: [phone] Laney Atkins RN - 05/20/2022 1:14 AM EDT Pt Koko transferred to room from [facility]. A&Ox4, oriented to room and call boo. Masimo and telemetry placed. In agreement with assessment as documented this evening by Nuris ASHLEY. No complaints at this time. Pt aware of NPO status and plan for cardiac cath in AM. Urinal provided. Resting comfortably in bed. Nuris Lester RN - 05/20/2022 1:09 AM EDT Pt. Transferred to [facility]. RN accompanied patient to floor and handed off to [facility] RN Dottie Hill APRN - 05/19/2022 10:02 AM EDT Vascular Surgery Progress Note Koko Zamora is a 81 y.o. male with w new onset Afib who presents in transfer from [facility] with acute limb ischemia of the LLE. ?? The patient had sudden pain starting at 630 05/15/22, he presented [facility] where he was placed on heparin. [...] management following Dottie Hill APRN 05/19/2022 Pager: [phone] Emily Sauceda RN - 05/19/2022 6:28 AM EDT OUTCOME EVALUATION NOTE: OUTCOME SUMMARY: Patient AOx4, VSS on RA. Afib on tele. HR controlled w/ PRN metop, given x2. Denies CP, SOB, n/v. See flowsheets for NVC. Dressings to LLE CDI, prevena WV to groin intact. Voiding to urinal. LBM LOSS CONTROL CONSULTANT, patient stating he will maybe try [...] adequately without difficulty to bedside urinal. LBM LOSS CONTROL CONSULTANT. Up to chair this AM with nursing staff. Worked with PT, tolerated well. Diet changed to regular at 1800.Plan is for cardiac cath on Friday. PLAN MOVING FORWARD: Bleeding precautions Pain management neurovascular checks PT/OT earthmoving labourer INDIVIDUALIZED FALL PREVENTION INTERVENTIONS: Patient-specific fall risk [...] onset Afib who presents in transfer from [facility] with acute limb ischemia of [...] mL Intravenous BID ??? PHENobarbitaL 0.12 mg/kg/dose ([place]) Oral BID ??? thiamine 100 mg Oral [...] management following Dottie Hill APRN 05/18/2022 Pager: [phone] Brannon Isaacs, PT - 05/18/2022 10:00 AM [...] IR Biopsy Spine 07/20/2019 Bobby Marshall MD [facility] INTERVENTIONL RAD ??? IR VERTEBROPLASTY LUMBAR MULTIPLE LEVELS 07/20/2019 IR Vertebroplasty Lumbar Multiple Levels 07/20/2019 Bobby Marshall MD [facility] INTERVENTIONL RAD ??? IR VERTEBROPLASTY THORACIC SINGLE LEVEL 10/25/2020 IR Vertebroplasty Thoracic Single Level 10/25/2020 Matt Chisholm MD [facility] INTERVENTIONL RAD ??? PRO EMBLC/THRMBC FEMORAL POPLITEAL AORTO-ILIAC ARTERY Left 05/15/2022 EMBOLECTOMY OR THROMBECTOMY, FEMOROPOPLITEAL, AORTOILIAC ARTERY BY LEG INCISION (WRVU 19.48) performed by Fito Summers MD at [facility] MAIN OR Social History: Pt lives [...] in this evaluation. Time IN / OUT: 8446-9884 Total Minutes, Physical Therapy: 30 Billing Code: Basilio Isaacs, PT Pager: [phone] Physical Therapy Inpatient Rehabilitation Department Emily Sauceda RN - 05/18/2022 4:34 AM EDT OUTCOME EVALUATION NOTE: OUTCOME SUMMARY: Patient AOx4, VSS on 2LNC. Afib on tele. HR above 120, MD aware, PRN IV metop given x1, HR returned to 90's-low 100's. Denies CP, SOB, n/v. See flowsheets for NVC. Dressings to LLE CDI, prevena WV to groin intact. Voiding to urinal. LBM LOSS CONTROL CONSULTANT. Heparin gtt therapeutic. Pain controlled. Patient [...] deficits provided, if applicable: [X] N/A Nuris Letser RN - 05/17/2022 6:25 PM EDT OUTCOME [...] adequately without difficulty to bedside urinal. LBM LOSS CONTROL CONSULTANT. Patient not OOB this shift. Currently NPO awaitingprocedure in labor and employment paralegal. PLAN MOVING FORWARD: Bleeding precautions Pain management neurovascular checks PT/OT NPO for labor and employment paralegal INDIVIDUALIZED FALL PREVENTION INTERVENTIONS: Patient-specific fall risk [...] the Emergency Department as a transfer from [facility] with left lower extremity limb ischemia. He went to [facility] and was startedon heparin and transferred to [facility] for evaluation by vascular surgery with subsequent [...] he will will be going to the labor and employment paralegal for evaluation. Will defer PT eval at present but will see as ordered post cardiac catheritizaton. Social Hx:Pt lives with his Ursula in [place], [place] in a 2 level home in [...] WBAT LLE LISBET HERMAN PT Pager # [phone] In-Pt Rehab Medicine Dottie Hill APRN - 05/17/2022 7:42 AM EDT Vascular Surgery Progress Note Koko Zamora is a 81 y.o. male with w new onset Afib who presents in transfer from [facility] with acute limb ischemia of [...] mL Intravenous BID ??? PHENobarbitaL 0.24 mg/kg/dose ([place]) Oral BID Followed by ??? [START ON 05/18/2022] PHENobarbitaL 0.12 mg/kg/dose ([place]) Oral BID ??? thiamine 100 mg Oral [...] management following Dottie Hill APRN 05/17/2022 Pager: [phone] Sary Dos Santos, RN - 05/17/2022 12:16 [...] onset Afib who presents in transfer from [facility] with acute limb ischemia of [...] mL Intravenous BID ??? PHENobarbitaL 0.48 mg/kg/dose ([place]) Oral BID Followed by ??? [START ON 05/17/2022] PHENobarbitaL 0.24 mg/kg/dose ([place]) Oral BID Followed by ??? [START ON 05/18/2022] PHENobarbitaL 0.12 mg/kg/dose ([place]) Oral BID ??? thiamine 100 mg Oral [...] management following Edward Rodríguez MD 05/16/2022 Pager: [phone] Sary Dos Santos RN - 05/16/2022 12:52 [...] met 2129 Hand off to DION Ramirez [place] documented in this encounter H&P Notes Kerry [...] onset Afib who presents in transfer from [facility] with acute limb ischemia of [...] IR Biopsy Spine 07/20/2019 Bobby Marshall MD [facility] INTERVENTIONL RAD ??? IR VERTEBROPLASTY LUMBAR MULTIPLE LEVELS 07/20/2019 IR Vertebroplasty Lumbar Multiple Levels 07/20/2019 Bobby Marshall MD [facility] INTERVENTIONL RAD ??? IR VERTEBROPLASTY THORACIC SINGLE LEVEL 10/25/2020 IR Vertebroplasty Thoracic Single Level 10/25/2020 Matt Chisholm MD [facility] INTERVENTIONL RAD Social Hx: Social History [...] Refill ??? fluticasone propionate (FLONASE) 50 mcg/actuation [place], Suspension as needed. ??? fluorouraciL (EFUDEX) 5 [...] and consented. Tim Chicas MD 05/15/2022 Pager: [phone] documented in this encounter ED Notes Lc Harris PA - 05/15/2022 1:20 PM EDT ED Provider Note HPI: Koko Zamora is a 81 y.o. male with history of atrial fibrillation not on anticoagulation, and GI bleeding who presents to the Emergency Department as a transfer from [facility] with left lower extremity limb ischemia. Patient says that the symptoms started roughly 630 this morning when he developed severe pain in his left lower extremity. He went to [facility] and was started on heparin and transferred to [facility] for evaluation by vascular surgery. Review of [...] lower extremity earlier today and went to [facility] where it was determined that he had ischemia of the left lower extremity. Vascular surgery [facility] was contacted and he was transferred here [...] orders before pt. Arrival. Pt. Arrived at [facility] by EMS at 1150, vascular team at [...] in an outpatient cardiac rehabilitation program at [facility] was discussed. Patient agrees to a referral to this program. Timing will depend on his recovery from Vascular surgery. He is going home w/VNA PT. I gave him the brochure for the program at [facility] for future reference. Care Management [...] information for follow-up [facility], [place] [address] [place] [address] Transportation: family or friend will provide Functional [...] Type: *No Product type* / Secondary Insurance: [facility] Prescription Coverage: Yes This plan was formulated with input from patient and team. All are in agreement with plan. IP RS has communicated with [place] - for initial IMM. Shawn López RN (Jonas) RN/CM - Cellphone: [phone] Pager: [phone] Covering Service RN/CM Plan of Care - [...] catheterization, transferred in hospital bed accompanied by Rent Collector RN, remains on telemetry monitoring. Heparin gtt [...] Type: *No Product type* / Secondary Insurance: [facility] Last Physical Therapy Recommendation: home with home health, home with supervision with None Last Occupational Therapy Recommendation: with Plan for discharge is: Home w/ Services Outpatient Agency/Support Group Needs: None Home Health Services: Registered Nurse, Physical Therapy, Occupational Therapy Agency Referrals: I have met with the patient to: ?? discuss discharge planning needs. ?? provide the [facility], Office of Care Management letter from the Laboratory Aide pertaining to rehab referrals. ?? provide a letter describing our affiliations within the [facility] and educate about their right to choose where referrals are sent. ?? provide a list of Home Health Agencies / Durable Medical Equipment vendors which serve their preferred geographic area. ?? provided patient with [facility] Star Quality Rating handout. They have requested referrals to: [facility]. [address] [place] [phone] Note routed to a Lens Generating Machine Tender who will communicate referrals to facilities and provide any required information. Transportation: family or friend will provide Barriers to discharge: None Plan going forward: Patient is going for a cardiac cath today and plan will come from there. Patientwas recently seen by PT and they recommend VNA at time of discharge. Schu[facility] was routed and pendedat this time. Care Management will continue to follow and assist with discharge planning and coordination of care as indicated. Anticipated Date of Discharge: 05/21/2022 Nataly RICHMOND RN Phone: [phone] Pager: [phone] Plan of Care - Laney Atkins RN [...] the original note were not included. [facility] [place] [address] [phone] INPATIENT CARDIOLOGY CONSULT NOTE Date of Consultation: 05/17/2022 Admit Date: 05/15/2022 Hospital Day 2 days Reason for Consult: New afib Active Problems: Active Hospital Problems Diagnosis Limb ischemia Resolved Hospital Problems No resolved problems to display. HPI: Koko Zamora is a 81 y.o. male with a PMHx significant for MVP (s/p MV repair 2000), tobacco use, HLD, who presented to [facility] from OSH on 05/15 with acute limb ischemia of LLE and was found to be in atrial fibrillation. Patient had sudden onset LLE pain on 05/15 and presented to [facility], where he was started on heparin and transferred to [facility]. Upon arrival to [facility], patient was in atrial fib with RVR [...] IR Biopsy Spine 07/20/2019 Bobby Marshall MD [facility] INTERVENTIONL RAD IR VERTEBROPLASTY LUMBAR MULTIPLE LEVELS 07/20/2019 IR Vertebroplasty Lumbar Multiple Levels 07/20/2019 Bobby Marshall MD [facility] INTERVENTIONL RAD IR VERTEBROPLASTY THORACIC SINGLE LEVEL 10/25/2020 IR Vertebroplasty Thoracic Single Level 10/25/2020 Matt Chisholm MD [facility] INTERVENTIONL RAD PRO EMBLC/THRMBC FEMORAL POPLITEAL AORTO-ILIAC ARTERY Left 05/15/2022 EMBOLECTOMY OR THROMBECTOMY, FEMOROPOPLITEAL, AORTOILIAC ARTERY BY LEG INCISION (WRVU 19.48) performed by Fito Summers MD at [facility] MAIN OR Allergies Allergen Reactions Aspirin Other (See Comments) GI bleed Out-Patient Medications: Medications Prior to Admission Medication Sig Dispense Refill Last Dose fluorouraciL (EFUDEX) 5 % Cream daily. CRESTOR 40 mg Tablet Take 40 mg by mouth daily. fluticasone propionate (FLONASE) 50 mcg/actuation [place], Suspension as needed. ascorbic acid, vitamin C, [...] 5 mL Intravenous BID PHENobarbitaL 0.24 mg/kg/dose ([place]) Oral BID Followed by [START ON 05/18/2022] PHENobarbitaL 0.12 mg/kg/dose ([place]) Oral BID thiamine 100 mg Oral Daily folic acid 1,000 mcg Oral Daily multivitamin with minerals 1 tablet Oral Daily heparin (porcine) infusion 1,200 Units/hr (05/17/22 7635) Family History: No family history on file. [...] ED to Hosp-Admission (Current) from 05/15/[address] [place] [address] Office Visit from 04/17/2021 in Pain and Spine Center at [facility] Weight 79.8 kg (175 lb 14.8 oz) [...] continue to follow Anne-Marie Larson MD Pager [phone] Clinic: [phone] 05/17/22 6:22 PM Initial Assessments - Ifrah [...] spouse would be surrogate decision maker [place] surrogate decision making law. (Only good for 180 days) Any patient receiving care at [facility] must abide by [place] law. The hierarchy for surrogate decision making [...] (i) The agent with financial power of criminal attorney or a conservator appointed in accordance [...] raised toilet seat Home Address confirmed as: [address] [place] [phone] Social & Family Supports: All names listed below confirmed with patient as Incorrect. Will notify toni to correct. Wifes address is same as and phone is [phone]. Extended Emergency Contact Information Primary Emergency Contact: Urslua Zamora Address: [address] [place] [address] [address] [place] [address] [facility] Relation: Spouse Current Care Provided by: [...] Type: *No Product type* / Secondary Insurance: [facility] Prescription Coverage: Yes Preferred Pharmacy: [id number] - [place], [place] - [address] [facility] [address] [place] [address] [id number] - [place], [place] - [address] [facility] [address] [facility] [address] [place] Status: Patient is a : unable to assess Primary Care Provider: Bobby Das MD [phone] Patient/Caregiver Goals of Treatment: to walk again Potential Needs for Transition of Care: none noted per 05/16 IDR Transportation: family will provide Transportation Anticipated: family or friend will provide Concerns to be Addressed: no discharge needs identified Assessment: Patient is admitted to vascular surg service for left lower extremity limb ischemia Plan: Per PT OT recommendations . Has used [facility] in the past. A member of the Care Management team will continue to monitor progress, follow for continuity of care and assist with transition of care planning. Ifrah Bell RN BSN Journalism InstructorHighway Patrol Pilot of Care Management Pager [phone] Brief Op Note - Erin Garza MD - 05/15/2022 5:04 PM EDT Brief Operative Note Patient Name: Koko Zamora : [id number] MR#: [id number] Case Date: 05/15/2022 Surgeon: Surgeon(s) and Role: [...] Garza MD - 05/15/2022 2:08 PM EDT [facility] Operative Note Patient Name: Koko Zamora : [id number] MR#: [id number] Case Date: 05/15/2022 Surgeon: Surgeon(s) and Role: [...] Office Visit Vascular Surgery Jing Ghosh APRN [facility] DR VASCULAR SURGERY [place], [place] [address] (Wo rk) 09/02/2022 Clinical Support Dermatology Thai Lynn MD [facility] DR JENNY BILLY[place]DERMAT [place], [place] [address] (Wo rk) 09/02/2022 Procedure visit Dermatology Jace Lynn MD [facility] DR JENNY BILLY[place], [place] [address] (Wo rk) 09/05/2022 Appointment Cardiology Trinity Reid MD [facility] CARDIOLOGY [place], [place] [address] (Wo rk) 09/05/2022 Office Visit Cardiology Trinity Reid MD [facility] CARDIOLOGY [place], [place] [address] (Wo rk) Scheduled Referrals Name [...] LEG INCIS documented in this encounter Results OJSSELYN, legs, multiple levels (06/13/2022 7:13 AM EDT) Component Value Ref Test Analysis Performed At [facility] Range Method Time Signature VB Text Department: Vascular Surgery Lab VASCUBASE Report Patient: [id number] (KOKO ZAMORA) CPT: 87130 Referring Physician: FITO SUMMERS ?? Phone: Indications: s/p L ORDER DISPATCHER endart. Diabetes mellitus: no Findings: Right ?Pressure [...] EDT) athologist Signature Heparin UFH 0.42 IU/mL Floyd [...] Organization Address City/State/[place] [address] Differential, Automated (05/21/2022 6:15 AM EDT) athologist Signature Neutrophils % 58.8 % [facility] Neutr Abs (ANC) 3.97 1.70 - [facility] 6.10 [facility] x10(3)/[facility] LABORATORY Lymphocytes % 25.2 % [facility] Lymphocytes Abs 1.7 0.9 - 3.2 [facility] x10(3)/[facility] LABORATORY Monocytes % 12.9 % [facility] Monocyte Abs 0.9 0.3 - 0.9 [facility] x10(3)/[facility] LABORATORY Eosinophils % 2.1 % [facility] Eosinophils Abs 0.1 0.0 - 0.4 [facility] x10(3)/[facility] LABORATORY Basophils % 0.4 % [facility] Basophils Abs 0.0 0.0 - 0.1 [facility] x10(3)/[facility] LABORATORY Immature Gran % 0.60 % [facility] Comment: Immature granulocytes(IG's)percentage an d absolute count will include metamyelocytes, myelocytes, and promyelo cytes. Blood smears from CBCs yielding IG's will be scanned manually for concor danlara. If this scan disagrees with the automated IG or if promyelocytes are not ed, a manual differential will be performed. Rain Gran Abs 0.04 0.00 - 0.04 x10(3)/[facility] MAR Y [facility] LABORATORY Specimen Anatomical Collection Method Collection Time Receive d Time (Source) Location / / Volume Laterality Blood 05/21/2022 6:15 AM 6:38 EDT AM EDT Resulting Agency Comment Spec In Lab Edward Rodríguez MD HEMATOLOGY ORDERABLES Performing Organization Address City/State/ZIP Code Phon e Number [place] [phone] [address] (ABNORMAL) Hemogram (05/21/2022 6:15 AM EDT) [facility] gist Method Time Signature WBC 6.8 4.0 - 9.5 [facility] x10(3)/[facility] LABORATORY RBC 3.59 (L) 4.58 - [facility] 5.54 [facility] x10(6)/[facility] LABORATORY Hemoglobin 11.8 (L) 13.7 - [place] 16.5 g/dL [facility] LABORATORY Hematocrit 34.5 (L) 40.5 - [facility] 48.5 % [facility] LABORATORY MCV 96.1 (H) 82.9 - [place] 93.1 [facility] LABORATORY MCH 32.9 (H) 27.5 - [place] 32.1 pg [facility] LABORATORY MCHC 34.2 32.0 - [place] 35.7 g/dL [facility] LABORATORY Platelets 198 145 - 357 [facility] x10(3)/[facility] LABORATORY RDWSD 44.9 36.0 - [facility] 45.0 [facility] LABORATORY RDWCV 12.6 11.4 - [facility] 13.8 % [facility] LABORATORY MPV 10.0 7.6 - 12.9 [facility] LABORATORY nRBC % Auto 0.3 % [facility] LABORATORY nRBC Abs Auto 0.020 (H) 0.000 - [facility] 0.000 [facility] x10(3)/[facility] LABORATORY Specimen Anatomical Collection Method Collection Time Receive d Time (Source) Location / / Volume Laterality Blood 05/21/2022 6:15 AM 2 6:38 EDT AM EDT Resulting Agency Comment Spec In Lab Edward Rodríguez MD HEMATOLOGY ORDERABLES Performing Organization Address City/State/ZIP [place] [address] EKG 12 Lead (05/20/2022 7:04 PM EDT) Component Value Ref Range Test Analysis Performed Pathologis t Method Time At Signature Ventricular rate 101 BPM MUSE SYSTEM QRS Duration 116 ms MUSE SYSTEM Q-T Interval 378 ms MUSE SYSTEM QTC Calculated 490 ms MUSE SYSTEM (Bezet) Calculated R Encinal -53 degrees MUSE SYSTEM Calculated T Encinal 101 degrees MUSE SYSTEM INTERPRETATION Atrial fibrillation [...] SYSTEM - 05/20/2022 7:09 PM ED T ?[facility] ? Cardiac Cathete rization/Intervention Report ? Patient Name: Zamora, Koko Sullivan. ? Procedure Date: 05/20/2022 ? A #: [id number] ? Primary Physician: Abundio Servin ? Case #: [id number] ? File Name: [id number] ? Catheterization Order Number: [id number] ? [facility] ? Final Report [place], [place] ? Patient Name: ? Koko Sullivan. Klarissa uson ? ID#: ?[id number] ? : ?1940 ? Procedure Date: ? [...] procedure was Urgent. The indication for ?the labor and employment paralegal visit is cardiomyo nita. Chest pain symptom [...] ?3.5 guiding catheter and a 3.[address] [address] ??20 Mhz. ??Imaging ?was successful. ??Image [...] premounted 2. 75 x 30 mm Rudy Bradford (AMPARO) was deployed ? with a maximum [...] require ?modification of this regimen. C onsult [facility] Interventional Cardiology for ?questions. ?The 1 year [...] 123 65 - 199 [facility] mg/dL [facility] LABORATORY Comment: Supplemental ranges: <140 mg/dL before meals <180 mg/dL all other times of the day Specimen Anatomical Collection Method Collection Time Receive d Time (Source) Location / / Volume Laterality Blood 05/20/2022 5:42 PM 5:42 EDT PM EDT Fito Summers MD POINT OF CARE TEST ORDERABLE S Performing Organization Address City/State/ZIP Code Phon [place] [address] (ABNORMAL) BMP w/fasting Glucose (05/20/2022 10:50 AM EDT) P athologist Signature Glucose 152 (H) 65 - 99 [facility] Fasting mg/dL [facility] LABORATORY Comment: ?Fasting* Glucose Interpretive C [...] of Diabetes Mellitus, Position Statement from the [employer]. ??Diabete s Care, Volume 33, Supplement 1, Nov 2009 BUN 11 10 - 20 mg/dL [facility] LABORATORY Creatinine 0.63 (L) 0.80 - 1.50 mg/dL [facility] LABORATORY Sodium 137 135 - 145 mmol/L [facility] LABORATORY Potassium 3.6 3.5 - 5.0 mmol/L [facility] LABORATORY Comment: Please note: ??Patients with WBC >100,00 0 may have falsely elevated Potassium levels. ??For accurate Potassium quantif ication in these patients send serum separator tube (gold top) for subsequent determinations. ??Contact the Clinical Chemistry Laboratory if there are any qu estions. Chloride 103 98 - 107 mmol/L [facility] LABORATORY CO2 24 22 - 31 mmol/L [facility] LABORATORY Anion Gap 10 5 - 15 mmol/L [facility] LABORATORY Calcium 8.7 8.5 - 10.5 mg/dL [facility] LABORATORY Estimated GFR 97 >=60 mL/min/1.73 m?? [facility] LABORATORY Comment: This patient's estimated [...] Summers MD CHEMISTRY ORDERABLES Performing Organization Address City/[facility]/ZIP Code Phon e Number [address] Heparin (unfractionated) Level (05/20/2022 [...] Summers MD HEMATOLOGY ORDERABLES Performing Organization Address City/[facility]/ZIP Code Phon e Number [address] (ABNORMAL) Differential, Automated (05/20/2022 5:02 AM EDT) Patholo gist Method Time Signature Neutrophils % 58.1 % [facility] LABORATORY Neutr Abs (ANC) 4.52 1.70 - [facility] 6.10 [facility] x10(3)/[facility] LABORATORY Lymphocytes % 24.1 % [facility] LABORATORY Lymphocytes Abs 1.9 0.9 - 3.2 [facility] x10(3)/[facility] LABORATORY Monocytes % 13.8 % [facility] LABORATORY Monocyte Abs 1.1 (H) 0.3 - 0.9 [facility] x10(3)/[facility] LABORATORY Eosinophils % 2.6 % [facility] LABORATORY Eosinophils Abs 0.2 0.0 - 0.4 [facility] x10(3)/[facility] LABORATORY Basophils % 0.8 % [facility] LABORATORY Basophils Abs 0.1 0.0 - 0.1 [facility] x10(3)/[facility] LABORATORY Immature Gran % 0.60 % [facility] LABORATORY Comment: Immature granulocytes(IG's)percentage an d absolute count will include metamyelocytes, myelocytes, and promyelo cytes. Blood smears from CBCs yielding IG's will be scanned manually for concor dance. If this scan disagrees with the automated IG or if promyelocytes are not ed, a manual differential will be performed. Rain Gran Abs 0.05 (H) 0.00 - 0.04 x10(3)/[facility] LABORATORY Specimen Anatomical Collection Method Collection Time Receive d Time (Source) Location / / Volume Laterality Blood 05/20/2022 5:02 AM 5:19 EDT AM EDT Resulting Agency Comment Spec In Lab Edward Rodríguez MD HEMATOLOGY ORDERABLES Performing Organization Address City/State/ZIP [place] [address] (ABNORMAL) Hemogram (05/20/2022 5:02 AM EDT) Analysis Performed At Patho logist Time Signature WBC 7.8 4.0 - 9.5 [facility] x10(3)/[facility] LABORATORY RBC 3.53 (L) 4.58 - [facility] 5.54 [facility] x10(6)/[facility] LABORATORY Hemoglobin 11.4 (L) 13.7 - [facility] 16.[facility] g/dL [facility] LAB[facility]ORY Hematocrit 34.3 (L) 40.5 - [facility] 48.5 % [facility] LAB[facility]ATORY MCV 97.2 (H) 82.9 - [facility] 93.1 fL [facility] LABORATORY MCH 32.3 (H) 27.5 - [facility] 32.1 pg [facility] LAB[facility] MCHC 33.2 32.0 - [facility] 35.7 g/dL [facility] LABORATORY Platelets 181 145 - 357 [facility] x10(3)/[facility] LABORATORY RDWSD 46.4 (H) 36.0 - [facility] 45.0 [facility] LABORATORY RDWCV 13.0 11.4 - [facility] 13.8 % [facility] LABORATORY MPV 10.4 7.6 - 12.9 [facility] LABORATORY nRBC % Auto 0.0 % [facility] LABORATORY nRBC Abs Auto 0.000 0.000 - [facility] 0.000 [facility] x10(3)/[facility] LABORATORY Specimen Anatomical Collection Method Collection Time Receive d Time (Source) Location / / Volume Laterality Blood 05/20/2022 5:02 AM 2 5:19 EDT AM EDT Resulting Agency Comment Spec In Lab Edward Rodríguez MD HEMATOLOGY ORDERABLES Performing Organization Address City/State/[place] [address] Heparin (unfractionated) Level (05/19/2022 [...] Organization Address City/State/ZIP Code Phon e Number [address] (ABNORMAL) Differential, Automated (05/19/2022 3:26 AM EDT) [facility] Method Time Signature Neutrophils % 62.1 % [facility] LABORATORY Neutr Abs (ANC) 4.59 1.70 - [facility] 6.10 [facility] x10(3)/[facility] LABORATORY Lymphocytes % 22.1 % [facility] LABORATORY Lymphocytes Abs 1.6 0.9 - 3.2 [facility] x10(3)/[facility] LABORATORY Monocytes % 13.5 % [facility] LABORATORY Monocyte Abs 1.0 (H) 0.3 - 0.9 [facility] x10(3)/[facility] LABORATORY Eosinophils % 1.3 % [facility] LABORATORY Eosinophils Abs 0.1 0.0 - 0.4 [facility] x10(3)/[facility] LABORATORY Basophils % 0.5 % [facility] LABORATORY Basophils Abs 0.0 0.0 - 0.1 [facility] x10(3)/[facility] LABORATORY Immature Gran % 0.50 % [facility] LABORATORY Comment: Immature granulocytes(IG's)percentage an d absolute count will include metamyelocytes, myelocytes, and promyelo cytes. Blood smears from CBCs yielding IG's will be scanned manually for concor dance. If this scan disagrees with the automated IG or if promyelocytes are not ed, a manual differential will be performed. Rain Gran Abs 0.04 0.00 - 0.04 x10(3)/[facility] LABORATORY Specimen Anatomical Collection Method Collection Time Receive d Time (Source) Location / / Volume Laterality Blood 05/19/2022 3:26 AM 3:59 EDT AM EDT Resulting Agency Comment Spec In Lab Edward Rodríguez MD HEMATOLOGY ORDERABLES Performing Organization Address City/State/ZIP Code Phon e Number [address] (ABNORMAL) Hemogram (05/19/2022 3:26 AM EDT) Analysis Performed At Patho logist Time Signature WBC 7.4 4.0 - 9.5 [facility] x10(3)/[facility] LABORATORY RBC 3.74 (L) 4.58 - [facility] [place] 5.54 [facility] x10(6)/[facility] LABORATORY Hemoglobin 12.1 (L) 13.7 - [facility] 16.5 g/dL [facility] LABORATORY Hematocrit 36.4 (L) 40.5 - [facility] 48.5 % [facility] LABORATORY MCV 97.3 (H) 82.9 - [facility] 93.1 [facility] LABORATORY MCH 32.4 (H) 27.5 - [facility] 32.1 pg [facility] LABORATORY MCHC 33.2 32.0 - [facility] 35.7 g/dL [facility] LABORATORY Platelets 168 145 - 357 [facility] x10(3)/[facility] LABORATORY RDWSD 46.9 (H) 36.0 - [facility] 45.0 [facility] LABORATORY RDWCV 13.0 11.4 - [facility] 13.8 % [facility] LABORATORY MPV 10.5 7.6 - 12.9 [facility] LABORATORY nRBC % Auto 0.0 % [facility] LABORATORY nRBC Abs Auto 0.000 0.000 - [facility] 0.000 [facility] x10(3)/[facility] LABORATORY Specimen Anatomical Collection Method Collection Time Receive d Time (Source) Location / / Volume Laterality Blood 05/19/2022 3:26 AM 3:59 EDT AM EDT Resulting Agency Comment Spec In Lab Edward Rodríguez MD HEMATOLOGY ORDERABLES Performing Organization Address City/State/Z[place] [address] TSH (05/18/2022 8:00 PM EDT) P athologist Signature TSH 2.27 0.27 - 4.20 [facility] mcIU/mL [facility] LABOR[facility]ORY Comment: Reference Interval (mcIU/mL): Females: ??First Trimester: 0.23-3.88 ??Second Trimester: 0.22-3.90 ??Third Trimester: 0.44-4.66 Specimen Anatomical Collection Method Collection Time Receive d Time (Source) Location / / Volume Laterality Blood 05/18/2022 8:00 PM 8:06 EDT PM EDT Resulting Agency Comment Spec In Lab Fito Summers MD CHEMISTRY ORDERABLES Performing Organization Address City/State/[place] [address] (ABNORMAL) Differential, Automated (05/18/2022 3:34 AM EDT) [facility] Method Time Signature Neutrophils % 67.2 % [facility] LABORATORY Neutr Abs (ANC) 5.89 1.70 - [facility] 6.10 [facility] x10(3)[facility] LABORATORY Lymphocytes % 17.1 % [facility] LABORATORY Lymphocytes Abs 1.5 0.9 - 3.2 [facility] x10(3)/[facility] LABORATORY Monocytes % 13.6 % [facility] LABORATORY Monocyte Abs 1.2 (H) 0.3 - 0.9 [facility] x10(3)/[facility] LABORATORY Eosinophils % 1.0 % [facility] LABORATORY Eosinophils Abs 0.1 0.0 - 0.4 [facility] x10(3)/[facility] LABORATORY Basophils % 0.6 % [facility] LABORATORY Basophils Abs 0.0 0.0 - 0.1 [facility] x10(3)/[facility] LABORATORY Immature Gran % 0.50 % [facility] LABORATORY Comment: Immature granulocytes(IG's)percentage an d absolute count will include metamyelocytes, myelocytes, and promyelo cytes. Blood smears from CBCs yielding IG's will be scanned manually for concor dance. If this scan disagrees with the automated IG or if promyelocytes are not ed, a manual differential will be performed. Rain Gran Abs 0.04 0.00 - 0.04 x10(3)/[facility] LABORATORY Specimen Anatomical Collection Method Collection Time Receive d Time (Source) Location / / Volume Laterality Blood 05/18/2022 3:34 AM 2 3:48 EDT AM EDT Resulting Agency Comment Spec In Lab Edward Rodríguez MD HEMATOLOGY ORDERABLES Performing Organization Address City/State/[place] [address] (ABNORMAL) Hemogram (05/18/2022 3:34 AM EDT) Analysis Performed At Patho logist Time Signature WBC 8.8 4.0 - 9.5 [facility] x10(3)/[facility] LABORATORY RBC 3.45 (L) 4.58 - [facility] 5.54 [facility] x10(6)/[facility] LABORATORY Hemoglobin 11.2 (L) 13.7 - [facility] 16.5 g/dL [facility] LABORATORY Hematocrit 33.0 (L) 40.5 - [facility] 48.5 % [facility] LABORATORY MCV 95.7 (H) 82.9 - [facility] 93.1 [facility] LABORATORY MCH 32.5 (H) 27.5 - [facility] 32.1 pg [facility] LABORATORY MCHC 33.9 32.0 - [facility] 35.[facility] g/dL [facility] LAB[facility]ATORY Platelets 130 (L) 145 - 357 [facility] x10(3)/[facility] LABORATORY RDWSD 46.2 (H) 36.0 - [facility] 45.0 [facility] LABORATORY RDWCV 13.2 11.4 - [facility] 13.8 % [facility] LABORATORY MPV 10.8 7.6 - 12.9 [facility] LABORATORY nRBC % Auto 0.0 % [facility] LABORATORY nRBC Abs Auto 0.000 0.000 - [facility] 0.000 [facility] x10(3)/[facility] LABORATORY Specimen Anatomical Collection Method Collection Time Receive d Time (Source) Location / / Volume Laterality Blood 05/18/2022 3:34 AM 2 3:48 EDT AM EDT Resulting Agency Comment Spec In Lab Edward Rodríguez MD HEMATOLOGY ORDERABLES Performing Organization Address City/[facility]/ZIP [place] [address] Heparin (unfractionated) Level (05/18/2022 3:34 AM EDT) athologist Signature Heparin UFH 0.59 IU/mL Floyd [...] Summers MD HEMATOLOGY ORDERABLES Performing Organization Address City/[facility]/ZIP [place] [address] Magnesium (05/17/2022 3:33 AM EDT) athologist Signature Magnesium 0.76 0.69 - 1.07 [facility] mmol/L [facility] LABORATORY Specimen Anatomical Collection Method Collection Time Receive d Time (Source) Location / / Volume Laterality Blood Venous Draw / 05/17/2022 3:33 AM 05/17/20 4:05 Unknown EDT AM EDT Resulting Agency Comment Spec In Lab Dottie Hill APRN CHEMISTRY ORDERABLES Performing Organization Address City/[facility]/ZIP [place] [address] (ABNORMAL) Basic Metabolic Panel (non-fasting) (05/17/2022 3:33 AM EDT) P athologist Signature Glucose Lvl 158 65 - 199 [facility] mg/dL [facility] LABORATORY Comment: Diabetes: >=200 mg/dL plus symp toms BUN 12 10 - 20 mg/dL [facility] LABORATORY Creatinine 0.74 (L) 0.80 - 1.50 mg/dL [facility] LABORATORY Sodium 137 135 - 145 mmol/L [facility] LABORATORY Potassium 3.5 3.5 - 5.0 mmol/L [facility] LABORATORY Comment: Please note: ??Patients with WBC >100,00 0 may have falsely elevated Potassium levels. ??For accurate Potassium quantif ication in these patients send serum separator tube (gold top) for subsequent determinations. ??Contact the Clinical Chemistry Laboratory if there are any qu estions. Chloride 102 98 - 107 mmol/L [facility] LABORATORY CO2 25 22 - 31 mmol/L [facility] LABORATORY Anion Gap 10 5 - 15 mmol/L [facility] LABORATORY Calcium 8.4 (L) 8.5 - 10.5 mg/dL [facility] LABORATORY Estimated GFR 92 >=60 mL/min/1.73 m?? [facility] LABORATORY Comment: This patient's estimated [...] Organization Address City/State/[place] [address] (ABNORMAL) Differential, Automated (05/17/2022 3:33 AM EDT) [facility] Method Time Signature Neutrophils % 65.5 % [facility] LABORATORY Neutr Abs (ANC) 6.84 (H) 1.70 - [facility] 6.10 [facility] x10(3)/[facility] LABORATORY Lymphocytes % 19.7 % [facility] LABORATORY Lymphocytes Abs 2.1 0.9 - 3.2 [facility] x10(3)/[facility] LABORATORY Monocytes % 13.1 % [facility] LABORATORY Monocyte Abs 1.4 (H) 0.3 - 0.9 [facility] x10(3)/[facility] LABORATORY Eosinophils % 0.6 % [facility] LABORATORY Eosinophils Abs 0.1 0.0 - 0.4 [facility] x10(3)/[facility] LABORATORY Basophils % 0.6 % [facility] LABORATORY Basophils Abs 0.1 0.0 - 0.1 [facility] x10(3)/[facility] LABORATORY Immature Gran % 0.50 % [facility] LABORATORY Comment: Immature granulocytes(IG's)percentage an d absolute count will include metamyelocytes, myelocytes, and promyelo cytes. Blood smears from CBCs yielding IG's will be scanned manually for concor dance. If this scan disagrees with the automated IG or if promyelocytes are not ed, a manual differential will be performed. Rain Gran Abs 0.05 (H) 0.00 - 0.04 x10(3)/[facility] LABORATORY Specimen Anatomical Collection Method Collection Time Receive d Time (Source) Location / / Volume Laterality Blood 05/17/2022 3:33 AM 3:53 EDT AM EDT Resulting Agency Comment Spec In Lab Edward Rodríguez MD HEMATOLOGY ORDERABLES Performing Organization Address City/[facility]/[place] [address] (ABNORMAL) Hemogram (05/17/2022 3:33 AM EDT) Analysis Performed At Patho logist Time Signature WBC 10.4 (H) 4.0 - 9.5 [facility] x10(3)/[facility] LABORATORY RBC 3.72 (L) 4.58 - [facility] 5.54 [facility] x10(6)/[facility] LABORATORY Hemoglobin 12.0 (L) 13.7 - [facility] 16.5 g/dL [facility] LABORATORY Hematocrit 36.4 (L) 40.5 - [facility] 48.5 % [facility] LABORATORY MCV 97.8 (H) 82.9 - [facility]1 [facility] LABORATORY MCH 32.3 (H) 27.5 - [facility] 32.1 pg [facility] LAB[facility]ATORY MCHC 33.0 32.0 - [facility] 35.7 g/dL [facility] LABORATORY Platelets 149 145 - 357 [facility] x10(3)/[facility] LABORATORY RDWSD 48.7 (H) 36.0 - [facility] 45.0 [facility] LABORATORY RDWCV 13.5 11.4 - [facility] 13.8 % [facility] LABORATORY MPV 10.6 7.6 - 12.9 [facility] LABORATORY nRBC % Auto 0.0 % [facility] LABORATORY nRBC Abs Auto 0.000 0.000 - [facility] 0.000 [facility] x10(3)/[facility] LABORATORY Specimen Anatomical Collection Method Collection Time Receive d Time (Source) Location / / Volume Laterality Blood 05/17/2022 3:33 AM 3:53 EDT AM EDT Resulting Agency Comment Spec In Lab Edward Rodríguez MD HEMATOLOGY ORDERABLES Performing Organization Address City/State/[place] [address] (ABNORMAL) Urinalysis Microscopic Exam (05/16/2022 11:15 PM EDT) P athologist Signature RBC UA 8 (H) 0 - 3 /HPF [facility] LABORATORY WBC UA 2 0 - 3 /HPF [facility] LABORATORY Specimen Anatomical Collection Method Collection Time Receive d Time (Source) Location / / Volume Laterality Clean Catch 05/16/2022 11:15 05/16/2022 Urine PM EDT 11:30 PM EDT Resulting Agency Comment Spec In Lab Barbei Ashraf MD URINE ORDERABLES Performing Organization Address City/[facility]/ZIP [place] [address] (ABNORMAL) Urinalysis with reflex Culture (05/16/2022 11:15 PM EDT) [facility] Method Time Signature Glucose UA Negative Negative [facility] mg/dL [facility] LABORATORY Protein UA Negative Negative [facility] mg/dL [facility] LABOR[facility]ORY Bilirubin UA Negative Negative [facility] mg/dL [facility] LABORATORY Comment: Clinical correlation required for positi ve Urine Bilirubin results as false positive may occur with some drugs and d rug related products. If a false positive is suspected a serum total bili quarles should be considered if clinically indicated. Urobilinogen UA Normal Normal mg/dL [facility] LABORATORY pH UA 6.0 5.0 - 8.0 [facility] LABORATORY Blood UA Small (A) Negative mg/dL [facility] LABOR[facility] Ketones UA Trace (A) Negative mg/dL [facility] LABORATORY Nitrite UA Negative Negative [facility] LABORATORY Leukocytes UA Negative Negative [facility] LABORATORY Appearance UA Clear Clear [facility] LABORATORY Spec Willis UA 1.021 1.005 - 1.030 [facility] LABORATORY Color UA Yellow Yellow [facility] LABORATORY Culture Reflexed No [facility] LABORATORY Specimen Anatomical Collection Method Collection Time Receive d Time (Source) Location / / Volume Laterality Clean Catch 05/16/2022 11:15 05/16/2022 Urine PM EDT 11:30 PM EDT Resulting Agency Comment Spec In Lab Fito Summers MD URINE ORDERABLES Performing Organization Address City/[facility]/ZIP Code Phon e Number [place] [id number] Heparin (unfractionated) Level (05/16/2022 10:59 PM EDT) P athologist Signature Heparin UFH 0.65 IU/mL Floyd [...] Organization Address City/State/[place] [address] XR Chest One View [...] who have questions please contact the health hiv/aids care nurse that requested your imaging first. [...] ho have questions please contact the health hiv/aids care nurse that requested your imaging first. Fito Summers MD IMG DX ORDERABLES EKG 12 Lead (05/16/2022 8:57 PM EDT) Component Value Ref Range Test Analysis Performed Pathologis t Method Time At Signature Ventricular rate 117 BPM MUSE SYSTEM QRS Duration 112 ms MUSE SYSTEM Q-T Interval 346 ms MUSE SYSTEM QTC Calculated 482 ms MUSE SYSTEM (Bezet) Calculated R Encinal -48 degrees MUSE SYSTEM Calculated T Encinal 111 degrees MUSE SYSTEM INTERPRETATION Atrial fibrillation with rapid ventricular response MUSE SYSTEM Left anterior fascicular block Minimal voltage criteria for LVH, may be normal variant ( [place] product ) Nonspecific ST and T wave [...] Organization Address City/State/[place] [address] ECHOCARDIOGRAM COMPLETE W CONTRAST (05/16/2022 12:49 PM EDT) athologist Signature EF 28 HEARTLAB SYSTEM Specimen (Source) Anatomical Collection Method Collection Time Re ceived Time Location / / Volume Laterality 05/16/2022 11:22 AM EDT Narrative [facility] - 05/16/2022 1:54 PM EDT [facility] ?[address] ? [place] [address] ?Voice: ?Fax: ? Echocardiogram Report Name: KOKO ZAMORA ?Study Date: 05/16/2022 11:22 AM ? Patient Location: [facility] 0303 B : 1940 ? Height: 67.5 in ? Account: [id number] Age: 81 yrs ? Weight: 176 lb Gender: Male ?BSA: 1.9 m2 Ordering Physician: FITO SUMMERS Referring Physician: MALI FLORIAN Performed By: Jolene Bernard RDCS Exam Location: [facility]. Interpretation Summary Left ventricle is [...] and LV systolic dysfunction are new. Procedure Complete-[id number]. Image enhancement Optiso n was used for [...] note might be different from the original. [facility] [address] [place] [address] Voice: Fax: Echocardiogram Report Name: KOKO ZAMORA Study Date: 05/2022 11:22 AM Patient Location: [address] [place] [address] : 1940 Height: 67.5 in Account: [id number] Age: 81 yrs Weight: 176 lb Gender: Male BSA: 1.9 m2 Ordering Physician: FITO SUMMERS Referring Physician: MALI FLORIAN Performed By: Jolene Bernard RDCS Exam Location: [facility]. Interpretation Summary Left ventricle is [...] and LV systolic dysfunction are new. Procedure Complete-[id number]. Image enhancement Optiso n was used for [...] (ABNORMAL) Differential, Automated (05/16/2022 3:01 AM EDT) [facility] Method Time Signature Neutrophils % 78.8 % [facility] LABORATORY Neutr Abs (ANC) 9.11 (H) 1.70 - [facility] 6.10 [facility] x10(3)/[facility] L LABORATORY Lymphocytes % 9.4 % [facility] Lymphocytes Abs 1.1 0.9 - 3.2 [facility] x10(3)/[facility] LABORATORY Monocytes % 10.9 % [facility] Monocyte Abs 1.3 (H) 0.3 - 0.9 [facility] x10(3)/[facility] LABORATORY Eosinophils % 0.0 % [facility] Eosinophils Abs 0.0 0.0 - 0.4 [facility] x10(3)/[facility] LABORATORY Basophils % 0.3 % [facility] Basophils Abs 0.0 0.0 - 0.1 [facility] x10(3)/[facility] LABORATORY Immature Gran % 0.60 % [facility] Comment: Immature granulocytes(IG's)percentage an d absolute count will include metamyelocytes, myelocytes, and promyelo cytes. Blood smears from CBCs yielding IG's will be scanned manually for concor dance. If this scan disagrees with the automated IG or if promyelocytes are not ed, a manual differential will be performed. Rain Gran Abs 0.07 (H) 0.00 - 0.04 x10(3)/[facility] LABORATORY Specimen Anatomical Collection Method Collection Time Receive d Time (Source) Location / / Volume Laterality Blood 05/16/2022 3:01 AM 3:36 EDT AM EDT Resulting Agency Comment Spec In Lab Erin Garza MD HEMATOLOGY ORDERABLES Performing Organization Address City/State/[place] [address] (ABNORMAL) Hemogram (05/16/2022 3:01 AM EDT) Analysis Performed At Patho logist Time Signature WBC 11.6 (H) 4.0 - 9.5 [facility] x10(3)/[facility] LABORATORY RBC 3.62 (L) 4.58 - [facility] 5.54 [facility] x10(6)/[facility] LABORATORY Hemoglobin 12.0 (L) 13.7 - [facility] 16.5 g/dL [facility] LABORATORY Hematocrit 35.3 (L) 40.5 - [place] 48.5 % [facility] LABORATORY MCV 97.5 (H) 82.9 - [place] 93.1 fL [facility] LABORATORY MCH 33.1 (H) 27.5 - [facility] 32.1 pg [facility] LABORATORY MCHC 34.0 32.0 - [facility] 35.7 g/dL [facility] LABORATORY Platelets 151 145 - 357 [facility] x10(3)/[facility] LABORATORY RDWSD 47.6 (H) 36.0 - [facility] 45.0 [facility] LABORATORY RDWCV 13.3 11.4 - [facility] 13.8 % [facility] LABORATORY MPV 10.5 7.6 - 12.9 [facility] LABORATORY nRBC % Auto 0.0 % [facility] LABORAT[facility] nRBC Abs Auto 0.000 0.000 - [facility] 0.000 [facility] x10(3)/[facility] LABORATORY Specimen Anatomical Collection Method Collection Time Receive d Time (Source) Location / / Volume Laterality Blood 05/16/2022 3:01 AM 2 3:36 EDT AM EDT Resulting Agency Comment Spec In Lab Erin Garza MD HEMATOLOGY ORDERABLES Performing Organization Address City/State/ZIP Code Phon e Number [address] Phosphorus (05/16/2022 3:01 AM EDT) P athologist Signature Phosphorus 3.7 2.5 - 4.5 [facility] mg/dL [facility] LABORATORY Specimen Anatomical Collection Method Collection Time Receive d Time (Source) Location / / Volume Laterality Blood 05/16/2022 3:01 AM 2 3:36 EDT AM EDT Resulting Agency Comment Spec In Lab Fito Summers MD CHEMISTRY ORDERABLES Performing Organization Address City/State/ZIP Code Phon e Number [address] Magnesium (05/16/2022 3:01 AM EDT) P athologist Signature Magnesium 0.77 0.69 - 1.07 [facility] mmol/L [facility] LABORATORY Specimen Anatomical Collection Method Collection Time Receive d Time (Source) Location / / Volume Laterality Blood 05/16/2022 3:01 AM 2 3:36 EDT AM EDT Resulting Agency Comment Spec In Lab Fito Summers MD CHEMISTRY ORDERABLES Performing Organization Address City/State/[place] [address] (ABNORMAL) Basic Metabolic Panel (non-fasting) (05/16/2022 3:01 AM EDT) P athologist Signature Glucose Lvl 222 (H) 65 - 199 [facility] mg/dL [facility] Comment: Diabetes: >=200 mg/dL plus symp toms BUN 12 10 - 20 mg/dL [facility] LABORATORY Creatinine 0.66 (L) 0.80 - 1.50 mg/dL [facility] LABORATORY Sodium 138 135 - 145 mmol/L [facility] LABORATORY Potassium 4.5 3.5 - 5.0 mmol/L [facility] LABORATORY Comment: Please note: ??Patients with WBC >100,00 0 may have falsely elevated Potassium levels. ??For accurate Potassium quantif ication in these patients send serum separator tube (gold top) for subsequent determinations. ??Contact the Clinical Chemistry Laboratory if there are any qu estions. Chloride 108 (H) 98 - 107 mmol/L [facility]OR[facility] CO2 22 22 - 31 mmol/L [facility] Anion Gap 8 5 - 15 mmol/L [facility] LABORATORY Calcium 8.2 (L) 8.5 - 10.5 mg/dL [facility] LABORATORY Estimated GFR 95 >=60 mL/min/1.73 m?? [facility] Comment: This patient's estimated [...] Organization Address City/State/[place] [address] (ABNORMAL) BLOOD GAS 2 ARTERIAL (05/15/2022 3:33 PM EDT) Analysis Performed At Patho logist Time Signature pH Art 7.33 (L) 7.35 - [facility] 7.45 [facility] LABORATORY pCO2 Art 41 35 - 45 [facility] LABORATORY pO2 Art 131 (H) 85 - 104 [facility] LABORATORY HCO3 Art 21.1 20.0 - [facility] 26.0 [facility] mmol/[facility] LABORATORY BE Art -4.8 (L) -3.0 - 3.0 [facility] mmol/L [facility] LABORATORY Hgb Blood Gas 13.4 (L) 13.7 - [facility] 16.5 g/dL [facility] LABORATORY O2HB Art 96.9 94.0 - [facility] 97.0 % [facility] LABORATORY COHB Art 1.4 % [facility] Comment: Nonsmokers: 0.5-1.5% COHB Smokers: Variable, but usually less than 10% Toxic: 20-30% COHB Lethal: Greater than 60% COHB METHB Art 0.3 <=1.5 % [facility] LABORATORY Na Whole Blood 139 135 - 145 mmol/L [facility] K Whole Blood 3.8 3.5 - 5.0 mmol/L [facility] Comment: Please note: Patients with WBC >100,000 may have falsely elevated Potassium levels. Contact the Clinical Chemistry L aboratory if there are any questions. ICa Whole Blood 1.32 1.15 - 1.33 mmol/L [facility] LABORATORY Comment: Note: ??Total bilirubin higher than 20 m g/dL may lead to falsely low ionized calcium. CL Whole Blood 113 (H) 98 - 107 mmol/L [facility] LABORATORY Gluc Whole Bld 136 65 - 199 mg/dL [facility] LABORATORY Comment: Diabetes: >=200 mg/dL plus symp toms. Lactate WB 2.0 0.5 - 2.2 mmol/L [facility] LABORATORY Specimen Anatomical Collection Method Collection Time Receive d Time (Source) Location / / Volume Laterality Blood 05/15/2022 3:33 PM 3:[address] Jamel Torre MD CHEMISTRY ORDERABLES Performing Organization Address City/State/[place] [address] (ABNORMAL) BLOOD GAS 2 ARTERIAL (05/15/2022 2:06 PM EDT) Analysis Performed At Patho logist Time Signature pH Art 7.39 7.35 - [facility] 7.45 [facility] LABORATORY pCO2 Art 35 35 - 45 [facility] LABORATORY pO2 Art 135 (H) 85 - 104 [facility] LABORATORY HCO3 Art 20.8 20.0 - [facility] 26.0 [facility] mmol/[facility] LABORATORY BE Art -4.2 (L) -3.0 - 3.0 [facility] mmol/L [facility] LABORATORY Hgb Blood Gas 14.5 13.7 - [facility] 16.5 g/dL [facility] LABORATORY O2HB Art 97.2 (H) 94.0 - [facility] 97.0 % [facility] LABORATORY COHB Art 1.2 % [facility] Comment: Nonsmokers: 0.5-1.5% COHB Smokers: Variable, but usually less than 10% Toxic: 20-30% COHB Lethal: Greater than 60% COHB METHB Art 0.3 <=1.5 % [facility] LABORATORY Na Whole Blood 140 135 - 145 mmol/L [facility] K Whole Blood 3.8 3.5 - 5.0 mmol/L [facility] Comment: Please note: Patients with WBC >100,000 may have falsely elevated Potassium levels. Contact the Clinical Chemistry L aboratory if there are any questions. ICa Whole Blood 1.12 (L) 1.15 - 1.33 mmol/L [facility] LABOR[facility] Comment: Note: ??Total bilirubin higher than 20 m g/dL may lead to falsely low ionized calcium. CL Whole Blood 109 (H) 98 - 107 mmol/L [facility] LABORATORY Gluc Whole Bld 152 65 - 199 mg/dL [facility] LABORATORY Comment: Diabetes: >=200 mg/dL plus symp toms. Lactate WB 1.5 0.5 - 2.2 mmol/L [facility] LABORATORY Specimen Anatomical Collection Method Collection Time Receive d Time (Source) Location / / Volume Laterality Blood 05/15/2022 2:06 PM 2:[address] Jamel Torre MD CHEMISTRY ORDERABLES Performing Organization Address City/[facility] [place] [address] (ABNORMAL) Prothrombin Time (05/15/2022 12:30 PM EDT) P athologist Signature PT 12.9 (H) 9.4 - 12.5 [facility] LABORATORY INR 1.1 [facility] LABORATORY Comment: An INR <2.0 [...] Morales DO HEMATOLOGY ORDERABLES Performing Organization Address City/[facility]/[place]IP [place] [address] (ABNORMAL) APTT (05/15/2022 12:30 PM EDT) P athologist Signature PTT 76 (H) 25 - 37 sec [facility] LABORATORY Comment: The PTT is [...] Morales DO HEMATOLOGY ORDERABLES Performing Organization Address City/[facility]/ZIP Code Phon e Number [address] Gold Tube HOLD (05/15/2022 12:20 PM EDT) P athologist Signature Gold Hold Sample in [facility]. [facility] LABORATORY Specimen Anatomical Collection Method Collection Time Receive d Time (Source) Location / / Volume Laterality Blood No Charge / 05/15/2022 12:20 05/15/2022 Unknown PM EDT 12:20 PM EDT Lc TRIPP CHEMISTRY ORDERABLES Performing Organization Address City/[facility]/ZIP Code Phon e Number [address] Type and Screen Validity (05/15/2022 12:00 PM EDT) [facility] Method Time Signature T&S only valid [facility] at [facility] LABORATORY Comment: This Type and Screen result is only valid at the [facility] Specimen Anatomical Collection Method Collection Time Receive d Time (Source) Location / / Volume Laterality Blood 05/15/2022 12:00 05/15/2022 PM EDT 12:17 PM EDT Resulting Agency Comment Spec In Lab Lc TRIPP BLOOD BANK ORDERABLES Performing Organization Address City/[facility]/ZIP Code Phon e Number [address] ABORH Recheck Status (05/15/2022 12:00 PM EDT) [facility] Method Time Signature ABORH Recheck Order Placed [facility] LABORATORY ABORH Type Complete [facility] LABORATORY Specimen Anatomical Collection Method Collection Time Receive d Time (Source) Location / / Volume Laterality Blood 05/15/2022 12:00 05/15/2022 PM EDT 12:17 PM EDT Resulting Agency Comment Spec In Lab Lc TRIPP BLOOD BANK ORDERABLES Performing Organization Address City/[facility]/ZIP [place] [address] CK (05/15/2022 12:00 PM EDT) P athologist Signature CK, Total 87 0 - 200 [facility] unit/L [facility] LABORATORY Specimen Anatomical Collection Method Collection Time Receive d Time (Source) Location / / Volume Laterality Blood Venous Draw / 05/15/2022 12:00 05/15/2022 Unknown PM EDT 12:19 PM EDT Resulting Agency Comment Spec In Lab Fito Summers MD CHEMISTRY ORDERABLES Performing Organization Address City/[facility]/ZIP [place] [address] Antibody screen (05/15/2022 12:00 PM EDT) [facility] Method Time Signature Ab Screen Negative [facility] LABORATORY Expires at 05/18/2022 [facility] [id number] on: [facility] LABORATORY Specimen Anatomical Collection Method Collection Time Receive d Time (Source) Location / / Volume Laterality Blood 05/15/2022 12:00 05/15/2022 PM EDT 12:17 PM EDT Resulting Agency Comment Spec In Lab Lc TRIPP BLOOD BANK ORDERABLES Performing Organization Address City/[facility]/ZIP [place] [address] ABO/Rh Typing (05/15/2022 12:00 PM EDT) P athologist Signature ABORh Type O Pos [facility] LABORATORY Specimen Anatomical Collection Method Collection Time Receive d Time (Source) Location / / Volume Laterality Blood 05/15/2022 12:00 05/15/2022 PM EDT 12:17 PM EDT Resulting Agency Comment Spec In Lab Lc TRIPP BLOOD BANK ORDERABLES Performing Organization Address City/[facility]/ZIP Code Phon e Number [address] (ABNORMAL) Differential, Automated (05/15/2022 12:00 PM EDT) [facility] Method Time Signature Neutrophils % 79.4 % [facility] LABORATORY Neutr Abs (ANC) 7.49 (H) 1.70 - [facility] 6.10 [facility] x10(3)/[facility] LABORATORY Lymphocytes % 11.3 % [facility] LABORATORY Lymphocytes Abs 1.1 0.9 - 3.2 [facility] x10(3)/[facility] LABORATORY Monocytes % 7.8 % [facility] LABORATORY Monocyte Abs 0.7 0.3 - 0.9 [facility] x10(3)/[facility] LABORATORY Eosinophils % 0.6 % [facility] LABORATORY Eosinophils Abs 0.1 0.0 - 0.4 [facility] x10(3)/[facility] LABORATORY Basophils % 0.6 % [facility] LABORATORY Basophils Abs 0.1 0.0 - 0.1 [facility] x10(3)/[facility] LABORATORY Immature Gran % 0.30 % [facility]OR[facility]ORY Comment: Immature granulocytes(IG's)percentage an d absolute count will include metamyelocytes, myelocytes, and promyelo cytes. Blood smears from CBCs yielding IG's will be scanned manually for concor dance. If this scan disagrees with the automated IG or if promyelocytes are not ed, a manual differential will be performed. Rain Gran Abs 0.03 0.00 - 0.04 x10(3)/[facility] LABORATORY Specimen Anatomical Collection Method Collection Time Receive d Time (Source) Location / / Volume Laterality Blood 05/15/2022 12:00 05/15/2022 PM EDT 12:19 PM EDT Resulting Agency Comment Spec In Lab Lc TRIPP HEMATOLOGY ORDERABLES Performing Organization Address City/[facility]/[place] [address] (ABNORMAL) Hemogram (05/15/2022 12:00 PM EDT) Analysis Performed At Patho logist Time Signature WBC 9.4 4.0 - 9.5 [facility] x10(3)/[facility] LABORATORY RBC 4.48 (L) 4.58 - [facility] 5.54 [facility] x10(6)/[facility] LABORATORY Hemoglobin 14.5 13.7 - [facility] 16.[facility] g/dL [facility] LABORATORY Hematocrit 42.4 40.5 - [facility] 48.5 % [facility] LABORATORY MCV 94.6 (H) 82.9 - [facility] 93.1 [facility] LABORATORY MCH 32.4 (H) 27.5 - [facility] 32.1 pg [facility] LABORATORY MCHC 34.2 32.0 - [facility] 35.7 g/dL [facility] LABORATORY Platelets 209 145 - 357 [facility] x10(3)/[facility] LABORATORY RDWSD 45.9 (H) 36.0 - [facility] 45.0 [facility] LABORATORY RDWCV 13.1 11.4 - [facility] 13.8 % [facility] LABORATORY MPV 10.5 7.6 - 12.9 [facility] LABORATORY nRBC % Auto 0.0 % [facility] LABORATORY nRBC Abs Auto 0.000 0.000 - [facility] 0.000 [facility] x10(3)/[facility] LABORATORY Specimen Anatomical Collection Method Collection Time Receive d Time (Source) Location / / Volume Laterality Blood 05/15/2022 12:00 05/15/2022 PM EDT 12:19 PM EDT Resulting Agency Comment Spec In Lab Lc TRIPP HEMATOLOGY ORDERABLES Performing Organization Address City/State/ZIP [place] [address] (ABNORMAL) Basic Metabolic Panel (non-fasting) (05/15/2022 12:00 PM EDT) P athologist Signature Glucose Lvl 203 (H) 65 - 199 [facility] mg/dL [facility] LABORATORY Comment: Diabetes: >=200 mg/dL plus symp toms BUN 16 10 - 20 mg/dL [facility] LABORATORY Creatinine 0.84 0.80 - 1.50 mg/dL [facility] LABORATORY Sodium 141 135 - 145 mmol/L [facility] LABORATORY Potassium 4.7 3.5 - 5.0 mmol/L [facility] LABORATORY Comment: Please note: ??Patients with WBC >100,00 0 may have falsely elevated Potassium levels. ??For accurate Potassium quantif ication in these patients send serum separator tube (gold top) for subsequent determinations. ??Contact the Clinical Chemistry Laboratory if there are any qu estions. Chloride 107 98 - 107 mmol/L [facility] CO2 23 22 - 31 mmol/L [facility] Anion Gap 11 5 - 15 mmol/L [facility] LABORATORY Calcium 8.5 8.5 - 10.5 mg/dL [facility] LABORATORY Estimated GFR 89 >=60 mL/min/1.73 m?? [facility] Comment: This patient's estimated [...] Organization Address City/State/[place] [address] documented in this encounter [...] 0853 (Given - Provider: Barbie Joyce RN)1750 ([facility] Hold - Provider: Admin Adt - Reason: Transfer to a Procedural area)1955 ([facility] Unhold - Provider: Admin Adt)2004 (Given - [...] 0852 (Given - Provider: Barbie Joyce RN)1750 ([facility] Hold - Provider: Admin Adt - Reason: Transfer to a Procedural area)1955 ([facility] Unhold - Provider: Admin Adt) 0816 (Given [...] Provider: Barbie joseph RN - Reason: NPO)1750 ([facility] Hold - Provider: Admin Adt - Reason: Transfer to a Procedural area)1955 ([facility] Unhold - Provider: Admin Adt)2131 (Given - [...] - Reason: Transfer to a Procedural area)1955 ([facility] Unhold - Provider: Admin Adt) 0816 (Given [...] - Reason: Transfer to a Procedural area)1955 ([facility] Unhold - Provider: Admin Adt)2005 (Given - [...] (New Bag - Provider: Barbie Joyce RN)175 ([facility] Hold - Provider: Admin Adt - Reason: Transfer to a Procedural area)1955 ([facility] Unhold - Provider: Admin Adt) 0219 (Restarted [...] bisacodyL (Dulcolax) suppository 10 mg 1 751 ([facility] Hold - Provider: Admin Adt - Reason: Transfer to a Procedural area)1955 ([facility] Unhold - Provider: Admin Adt) 10 mg, [...] (porcine) (1,000 units/mL) injection 0-8,000 Units 1750 ([facility] Hold - Provider: Admin Adt - Reason: Transfer to a Procedural area)1955 ([facility] Unhold - Provider: Admin Adt) 0-8,000 Units, [...]
Routine documented in this encounter Care Teams Editor Map Relationship Specialty Start Date End Date Bobby Das MD PCP - General 10/02/[address] [place] [address] [place] [id number] documented as of this encounter
--- OUTSIDE RECORDS SUMMARY | 2022-06-28 11:07 | XMS_ITS | Encounter Summary ---
:1940 Author Organization [facility] [place] [address] Care Team Providers Name Role Phone Bobby Das MD Primary Care Provider Reason for Referral Consultation (Routine) - Authorized Specialty Diagnoses / Procedures Referred By Contact Refer red To Contact Diagnoses Non-ST elevation myocardial infarction (NSTEMI) Limb ischemia Nasrin Parra PA [facility] Tobacco Treatment [facility] [place] [address] [place] [address] Referral ID Status Reason Start Date Expiration Visits Visits Date Requested Authorized [id number] Authorized Consult, 05/21/2022 05/21/2023 1 1 Test & Treat iagnostic Test (Routine) - Closed Specialty Diagnoses / Procedures Referred By Contact Refer red To Contact Cardiology Diagnoses Paroxysmal atrial fibrillation Nasrin Parra PA [facility] Non-Inv Card Lab Procedures Ziopatch 48 Hrs-15 Days [facility] [place] [address] [place] [address] Fax: Referral ID Status Reason Start Date Expiration Date Visits V isits Requested Authorized [id number] Closed Specialty 05/21/2022 10/21/2022 1 1 Service Requested Consultation (Routine) - Closed Specialty Diagnoses / Procedures Referred By Contact Refer red To Contact Cardiology Diagnoses HFrEF (heart failure with reduced ejection fraction) Paroxysmal atrial fibrillation Post-hospital follow-up, s/p PCI with stenting, heart failure Nasrin Parra PA [facility] Cardiology 4a [facility] D R [facility] [place] [address] [place] [address] Referral ID Status Reason Start Date Expiration Date Visits V isits Requested Authorized [id number] Closed Consult, 05/21/2022 05/21/2023 1 1 Test & Treat iagnostic Test (Routine) - Authorized Specialty Diagnoses / Procedures Referred By Contact Refer red To Contact Diagnoses Limb ischemia Nasrin Parra PA [facility] Vascular Lab 3v Procedures JOSSELYN, legs, multiple levels [facility] [place] [address] [place] [address] Referral ID Status Reason Start Expiration Visits Visits Date Date Requested Authorized [id number] Authorized Specialty 05/21/2022 05/21/2023 1 1 Service [facility]ed [facility] (Routine) - Authorized Specialty Diagnoses / Procedures Referred By Contact Refer red To Contact Diagnoses Limb ischemia Fito Summers MD [facility] Health & Hospice, [facility] VASCULAR SURGERY [address] [place] [address] [address] Fax: Referral ID Status Reason Start Date Expiration Visits Visits Date Requested Authorized [id number] Authorized Consult, 05/21/2022 11/17/2022 999 999 Test & Treat Reason for Visit Reason Comments Left Leg Pain Auth/Cert Specialty Diagnoses / Procedures Referred By Contact Refer red To Contact Diagnoses Limb ischemia LLE thrombus Fito Summers MD [facility] [place] [address] Referral ID Status Reason Start Date Expiration Date Visits Requ ested Visits Authorized [id number] 1 1 Encounter Details Date Type Department Care Team Description 05/15/2022 - Hospital Intermediate Cardiac Ravi Summers MD [facility] [place] [address] Atrial fibrillation, unspecified type; 05/21/2022 Encounter Care Unit Wellington Gerard MD [facility] [place] [address] Non-ST elevation myocardial infarction ( NSTEMI); [facility] Limb isch emia; [facility] HFrEF (heart failure with re duced ejection fraction); [facility] [place] [address] Social History Tobacco Use Types Packs/Day Years [...] onset Afib who presents in transfer from [facility] with acute limb ischemia [...] emergently went to the OR for L DIE CUTTER transverse arteriotomy and primary repair, thromboembolectomy of L SFA/PFA/DIE CUTTER, reperfusion venous drainage for 250 cc, and [...] Discharge Condition: Good Discharge to: Home with [address] [address] Future Appointments and Orders Future Appointments and Orders Future Appointments Provider Department Dept Phone 05/23/2022 10:30 AM Loretta Cohen MD Dermatology at [facility] Arrive at: Graduate Intern [address] [place] [address] 06/07/2022 1:30 PM Gail Rae APRN Vascular Surgery at [facility] Arrive at: Graduate Intern Area [phone] 06/13/2022 7:30 AM Edson Lagos [place] Vascular Lab at [facility] Arrive at: Graduate Intern Area [phone] 06/13/2022 8:00 AM Fito Summers MD Vascular Surgery at [facility] Arrive at: Graduate Intern Area [phone] 06/13/2022 10:00 AM Alan Reid MD Cardiology at [facility] Arrive at: Graduate Intern Area [phone] Future Orders Complete By Expires Demetriusopatch 48 Hrs-15 Days [[id number] CPT(R)] 05/21/2022 11/20/2022 Process Instructions: Scheduling Instructions: Comments: Questions: Does the patient have a pacemaker? If yes provide HI/LO settings: Apply for 7 or 14 days?: 7 Where will study be performed?: [facility] JOSSELYN, legs, multiple levels [VAS8 Custom] 06/21/2022 (Approximate) 12/21/2022 Process Instructions: There is no in-house vascular wetlands conservation laborer available on weeknights (5pm-8am), weekends, or holidays. IF THIS IS A REQUEST FOR AN EMERGENT STUDY DURING THOSE HOURS, please have the senior provider responsible for the patient page the Vascular Surgery Fellow/Senior Resident distribution warehouse manager to discuss options. Scheduling Instructions: Questions: Indication for study/signs & symptoms: ALI s/p L fem cutdown with thromboembolectomy Question to be answered: Perfusion to feet? Please check toe pressure Preferred location?: [facility] Referral to Cardiology [REF12 Custom] [...] Zamora for admission to Home Health. [address] [facility] [address] (home) Date of : 1940 Inpatient DOCUMENTATION FOR VNA SERVICES (INCLUDING THOSE PATIENTS WITH MEDICARE COVERAGE REQUIRING HOME VNA SERVICES AND/OR HOSPICE SERVICES) PATIENT'S LOCATION: Koko Zamora [address] [facility] [phone] (home) Cell: No relevant phone numbers on file. Product/Device Technologist's Name: Koko In discussion with the attending physician, it is certified that this patient is under their care and that they, or a Nurse Practitioner,Clinical Nurse specialist or Physician Water And Gas Helper who is working directly with them, had [...] for managing ADL's. HOME HEALTH CARE AGENCY: [facility] [address] [place] [id number] Start of care: Within 24 to 48 [...] obtained from this patient'sPCP: Bobby Das MD [address] [place] [phone] All A agencies which cover the [...] For any problems or questions please call [phone] For issues on weeknights after 5pm and weekends please call [phone] and ask for the Vascular Fellow distribution warehouse manager. JOSEE Santiago Vascular Surgery 05/21/2022 documented in [...] For any problems or questions please call [phone] For issues on weeknights after 5pm and weekends please call [phone] and ask for the Vascular Fellow distribution warehouse manager. documented in this encounter Medications at Time [...] 04/12/20 21 (FLONASE) 50 mcg/actuation Nare route Mayer, Suspension daily as needed. fluorouraciL (EFUDEX) 5 [...] onset Afib who presents in transfer from [facility] with acute limb ischemia [...] status, full code. JOSEE Santiago 05/21/2022 Pager: [phone] Brannon Isaacs, PT - 05/21/2022 10:35 AM [...] plan as stated. Time IN / OUT: 5459-4675 Total Minutes, Physical Therapy: 25 Billing Code: 2 BOSTON Isaacs DPT Pager: [phone] Physical Therapy Inpatient Rehabilitation Department Wellington Jean [...] 05/15/2022 in Intermediate Cardiac Care Unit [facility] Office Visit from 04/17/2021 in Pain and Spine Center at [facility] Weight 79.8 kg (175 lb 14.8 [...] and plan of care per Dr. Mcnamara (global cmo). 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 His [...] to Hosp-Admission (Current) from 05/15/2022 in 4 [facility] Office Visit from 04/17/2021 in Pain and Spine Center at [facility] Weight 79.8 kg (175 lb 14.8 [...] across the aortic valve is 13 mmHg. JUVEANL 1.2 cm2 S/P MV repair for prolapse. [...] findings andplan of care per Dr. Mcnamara (global cmo). Please refer to her note above for [...] a mitral repair in 2000 (not at [facility]) with no CAD at that time. [...] AF and the first documented HR at [facility] was 125 bpm (presented to an [...] onset Afib who presents in transfer from [facility] with acute limb ischemia [...] management following Dottie Hill APRN 05/20/2022 Pager: [phone] Laney Atkins RN - 05/20/2022 1:14 AM EDT Pt Koko transferred to room from [facility]. A&Ox4, oriented to room and call boo. Masimo and telemetry placed. In agreement with assessment as documented this evening by Nuris ASHLEY. No complaints at this time. Pt aware of NPO status and plan for cardiac cath in AM. Urinal provided. Resting comfortably in bed. Nuris Lester RN - 05/20/2022 1:09 AM EDT Pt. Transferred to [facility]. RN accompanied patient to floor and handed off to [facility] RN Dottie Hill APRN - 05/19/2022 10:02 AM EDT Vascular Surgery Progress Note Koko Zamora is a 81 y.o. male with w new onset Afib who presents in transfer from [facility] with acute limb ischemia of the LLE. ?? The patient had sudden pain starting at 630 05/15/22, he presented [facility] where he was placed on heparin. [...] management following Dottie Hill APRN 05/19/2022 Pager: [phone] Emily Greer RN - 05/19/2022 6:28 AM EDT OUTCOME EVALUATION NOTE: OUTCOME SUMMARY: Patient AOx4, VSS on RA. Afib on tele. HR controlled w/ PRN metop, given x2. Denies CP, SOB, n/v. See flowsheets for NVC. Dressings to LLE CDI, prevena WV to groin intact. Voiding to urinal. LBM ENERGY PROFESSIONAL, patient stating he will maybe try the [...] adequately without difficulty to bedside urinal. LBM ENERGY PROFESSIONAL. Up to chair this AM with nursing staff. Worked with PT, tolerated well. Diet changed to regular at 1800.Plan is for cardiac cath on Friday. PLAN MOVING FORWARD: Bleeding precautions Pain management neurovascular checks PT/OT lab tech INDIVIDUALIZED FALL PREVENTION INTERVENTIONS: Patient-specific fall risk [...] onset Afib who presents in transfer from [facility] with acute limb ischemia [...] mL Intravenous BID ??? PHENobarbitaL 0.12 mg/kg/dose ([place]) Oral BID ??? thiamine 100 mg Oral [...] management following Dottie Hill APRN 05/18/2022 Pager: [phone] Brannon Isaacs, PT - 05/18/2022 10:00 AM [...] IR Biopsy Spine 07/20/2019 Bobby Marshall MD [facility] INTERVENTIONL RAD ??? IR VERTEBROPLASTY LUMBAR MULTIPLE LEVELS 07/20/2019 IR Vertebroplasty Lumbar Multiple Levels 07/20/2019 Bobby Marshall MD [facility] INTERVENTIONL RAD ??? IR VERTEBROPLASTY THORACIC SINGLE LEVEL 10/25/2020 IR Vertebroplasty Thoracic Single Level 10/25/2020 Matt Chisholm MD [facility] INTERVENTIONL RAD ??? PRO EMBLC/THRMBC FEMORAL POPLITEAL AORTO-ILIAC ARTERY Left 05/15/2022 EMBOLECTOMY OR THROMBECTOMY, FEMOROPOPLITEAL, AORTOILIAC ARTERY BY LEG INCISION (WRVU 19.48) performed by Fito Summers MD at [facility] MAIN OR Social History: Pt lives [...] in this evaluation. Time IN / OUT: 8396-4451 Total Minutes, Physical Therapy: 30 Billing Code: Basilio Isaacs, PT Pager: [phone] Physical Therapy Inpatient Rehabilitation Department Emily Sauceda RN - 05/18/2022 4:34 AM EDT OUTCOME EVALUATION NOTE: OUTCOME SUMMARY: Patient AOx4, VSS on 2LNC. Afib on tele. HR above 120, MD aware, PRN IV metop given x1, HR returned to 90's-low 100's. Denies CP, SOB, n/v. See flowsheets for NVC. Dressings to LLE CDI, prevena WV to groin intact. Voiding to urinal. LBM ENERGY PROFESSIONAL. Heparin gtt therapeutic. Pain controlled. Patient sleeping [...] adequately without difficulty to bedside urinal. LBM ENERGY PROFESSIONAL. Patient not OOB this shift. Currently NPO awaitingprocedure in propagator laborer. PLAN MOVING FORWARD: Bleeding precautions Pain management neurovascular checks PT/OT NPO for propagator laborer INDIVIDUALIZED FALL PREVENTION INTERVENTIONS: Patient-specific fall [...] the Emergency Department as a transfer from [facility] with left lower extremity limb ischemia. He went to [facility] and was startedon heparin and transferred to [facility] for evaluation by vascular surgery [...] he will will be going to the propagator laborer for evaluation. Will defer PT eval at present but will see as ordered post cardiac catheritizaton. Social Hx:Pt lives with his Ursula in [place], [place] in a 2 level home in [...] WBAT LLE LISBET HERMAN PT Pager # [phone] In-Pt Rehab Medicine Dottie Hill APRN - 05/17/2022 7:42 AM EDT Vascular Surgery Progress Note Koko Zamora is a 81 y.o. male with w new onset Afib who presents in transfer from [facility] with acute limb ischemia [...] mL Intravenous BID ??? PHENobarbitaL 0.24 mg/kg/dose ([place]) Oral BID Followed by ??? [START ON 05/18/2022] PHENobarbitaL 0.12 mg/kg/dose ([place]) Oral BID ??? thiamine 100 mg Oral [...] management following Dottie Hill APRN 05/17/2022 Pager: [phone] Sary Dos Santos, RN - 05/17/2022 12:16 [...] onset Afib who presents in transfer from [facility] with acute limb ischemia [...] mL Intravenous BID ??? PHENobarbitaL 0.48 mg/kg/dose ([place]) Oral BID Followed by ??? [START ON 05/17/2022] PHENobarbitaL 0.24 mg/kg/dose ([place]) Oral BID Followed by ??? [START ON 05/18/2022] PHENobarbitaL 0.12 mg/kg/dose ([place]) Oral BID ??? thiamine 100 mg Oral [...] management following Edward Rodríguez MD 05/16/2022 Pager: [phone] Sary Dos Santos RN - 05/16/2022 12:52 [...] 2129 Hand off to DION Ramirez 3 bromide documented in this encounter H&P Notes Kerry [...] onset Afib who presents in transfer from [facility] with acute limb ischemia [...] IR Biopsy Spine 07/20/2019 Bobby Marshall MD [facility] INTERVENTIONL RAD ??? IR VERTEBROPLASTY LUMBAR MULTIPLE LEVELS 07/20/2019 IR Vertebroplasty Lumbar Multiple Levels 07/20/2019 Bobby Marshall MD [facility] INTERVENTIONL RAD ??? IR VERTEBROPLASTY THORACIC SINGLE LEVEL 10/25/2020 IR Vertebroplasty Thoracic Single Level 10/25/2020 Matt Chisholm MD [facility] INTERVENTIONL RAD Social Hx: Social History [...] Refill ??? fluticasone propionate (FLONASE) 50 mcg/actuation Mayer, Suspension as needed. ??? fluorouraciL (EFUDEX) 5 [...] and consented. Tim Chicas MD 05/15/2022 Pager: [phone] documented in this encounter ED Notes Lc Harris PA - 05/15/2022 1:20 PM EDT ED Provider Note HPI: Koko Zamora is a 81 y.o. male with history of atrial fibrillation not on anticoagulation, and GI bleeding who presents to the Emergency Department as a transfer from [facility] with left lower extremity limb ischemia. Patient says that the symptoms started roughly 630 this morning when he developed severe pain in his left lower extremity. He went to [facility] and was started on heparin and transferred to [facility] for evaluation by vascular surgery. [...] lower extremity earlier today and went to [facility] where it was determined that he had ischemia of the left lower extremity. Vascular surgery [facility] was contacted and he was transferred [...] orders before pt. Arrival. Pt. Arrived at [facility] by EMS at 1150, vascular team [...] in an outpatient cardiac rehabilitation program at [facility] was discussed. Patient agrees to a referral to this program. Timing will depend on his recovery from Vascular surgery. He is going home w/VNA PT. I gave him the brochure for the program at [facility] for future reference. Care Management Discharge [...] information for follow-up Home Health & Hospice, [facility] [address] [place] [address] Transportation: family or friend will provide Functional [...] Type: *No Product type* / Secondary Insurance: [facility] Prescription Coverage: Yes This plan was formulated with input from patient and team. All are in agreement with plan. IP RS has communicated with [place] - for initial IMM. RAlmita (Satish) DION López RN/CM - Cellphone: [phone] Pager: [phone] Covering Service RN/CM Plan of Care - [...] catheterization, transferred in hospital bed accompanied by Epitaxial Reactor Technician RN, remains on telemetry monitoring. Heparin gtt [...] Type: *No Product type* / Secondary Insurance: [facility] Last Physical Therapy Recommendation: home with home health, home with supervision with None Last Occupational Therapy Recommendation: with Plan for discharge is: Home w/ Services Outpatient Agency/Support Group Needs: None Home Health Services: Registered Nurse, Physical Therapy, Occupational Therapy Agency Referrals: I have met with the patient to: ?? discuss discharge planning needs. ?? provide the [facility], Office of Care Management letter from the Regulatory Affairs Portfolio Leader pertaining to rehab referrals. ?? provide a letter describing our affiliations within the [facility] and educate about their right to choose where referrals are sent. ?? provide a list of Home Health Agencies / Durable Medical Equipment vendors which serve their preferred geographic area. ?? provided patient with [facility] Star Quality Rating handout. They have requested referrals to: [facility]. [address] [place] [address] Note routed to a City Superintendent who will communicate referrals to facilities and provide any required information. Transportation: family or friend will provide Barriers to discharge: None Plan going forward: Patient is going for a cardiac cath today and plan will come from there. Patientwas recently seen by PT and they recommend VNA at time of discharge. [facility] was routed and pendedat this time. Care Management will continue to follow and assist with discharge planning and coordination of care as indicated. Anticipated Date of Discharge: 05/21/2022 Nataly RICHMOND RN Phone: [phone] Pager: [phone] Plan of Care - Laney Atkins RN [...] not included. [facility] [place] [address] [place] [address] INPATIENT CARDIOLOGY CONSULT NOTE Date of Consultation: 05/17/2022 Admit Date: 05/15/2022 Hospital Day 2 days Reason for Consult: New afib Active Problems: Active Hospital Problems Diagnosis Limb ischemia Resolved Hospital Problems No resolved problems to display. HPI: Koko Zamora is a 81 y.o. male with a PMHx significant for MVP (s/p MV repair 2000), tobacco use, HLD, who presented to [facility] from OSH on 05/15 with acute limb ischemia of LLE and was found to be in atrial fibrillation. Patient had sudden onset LLE pain on 05/15 and presented to [facility], where he was started on heparin and transferred to [facility]. Upon arrival to [facility], patient was in atrial fib with [...] IR Biopsy Spine 07/20/2019 Bobby Marshall MD [facility] INTERVENTIONL RAD IR VERTEBROPLASTY LUMBAR MULTIPLE LEVELS 07/20/2019 IR Vertebroplasty Lumbar Multiple Levels 07/20/2019 Bobby Marshall MD [facility] INTERVENTIONL RAD IR VERTEBROPLASTY THORACIC SINGLE LEVEL 10/25/2020 IR Vertebroplasty Thoracic Single Level 10/25/2020 Matt Chisholm MD [facility] INTERVENTIONL RAD PRO EMBLC/THRMBC FEMORAL POPLITEAL AORTO-ILIAC ARTERY Left 05/15/2022 EMBOLECTOMY OR THROMBECTOMY, FEMOROPOPLITEAL, AORTOILIAC ARTERY BY LEG INCISION (WRVU 19.48) performed by Fito Summers MD at [facility] MAIN OR Allergies Allergen Reactions Aspirin Other (See Comments) GI bleed Out-Patient Medications: Medications Prior to Admission Medication Sig Dispense Refill Last Dose fluorouraciL (EFUDEX) 5 % Cream daily. CRESTOR 40 mg Tablet Take 40 mg by mouth daily. fluticasone propionate (FLONASE) 50 mcg/actuation Mayer, Suspension as needed. ascorbic acid, vitamin C, [...] 5 mL Intravenous BID PHENobarbitaL 0.24 mg/kg/dose ([place]) Oral BID Followed by [START ON 05/18/2022] PHENobarbitaL 0.12 mg/kg/dose ([place]) Oral BID thiamine 100 mg Oral Daily folic acid 1,000 mcg Oral Daily multivitamin with minerals 1 tablet Oral Daily heparin (porcine) infusion 1,200 Units/hr (05/17/22 6945) Family History: No family history on file. [...] ED to Hosp-Admission (Current) from 05/15/[address] [place] [address] Office Visit from 04/17/2021 in Pain and Spine Center at [facility] Weight 79.8 kg (175 lb 14.8 [...] continue to follow Anne-Marie Larson MD Pager [phone] Clinic: [phone] 05/17/22 6:22 PM Initial Assessments - Ifrah [...] spouse would be surrogate decision maker per [place] surrogate decision making law. (Only good for 180 days) Any patient receiving care at [facility] must abide by [place] law. The hierarchy [...] (i) The agent with financial power of strip winder or a conservator appointed in accordance with [...] raised toilet seat Home Address confirmed as: [facility] [facility] [address] Social & Family Supports: All names listed below confirmed with patient as Incorrect. Will notify conifer to correct. Wifes address is same as and phone is [phone]. Extended Emergency Contact Information Primary Emergency Contact: Demarco Zamorana Address: [facility] [place] [address] [facility] Relation: Spouse Current Care Provided [...] Type: *No Product type* / Secondary Insurance: [facility] Prescription Coverage: Yes Preferred Pharmacy: [id number] - [place], [place] - [address] [facility] [address] [facility] [place] [address] [id number] - [place], [place] - [address] [facility] [address] [facility] [address] [place] Status: Patient is a : unable to assess Primary Care Provider: Bobby Das MD [phone] Patient/Caregiver Goals of Treatment: to walk again Potential Needs for Transition of Care: none noted per 05/16 IDR Transportation: family will provide Transportation Anticipated: family or friend will provide Concerns to be Addressed: no discharge needs identified Assessment: Patient is admitted to vascular surg service for left lower extremity limb ischemia Plan: Per PT OT recommendations . Has used [employer] in the past. A member of the Care Management team will continue to monitor progress, follow for continuity of care and assist with transition of care planning. Ifrah Bell RN BSN Welder Setter Resistance MachineDirector Of Technology of Care Management Pager [phone] Brief Op Note - Erin Garza MD - 05/15/2022 5:04 PM EDT Brief Operative Note Patient Name: Koko Zamora : [id number] MR#: [id number] Case Date: 05/15/2022 Surgeon: Surgeon(s) and Role: [...] Garza MD - 05/15/2022 2:08 PM EDT [facility] [place] Operative Note Patient Name: Koko Zamora : [id number] MR#: [id number] Case Date: 05/15/2022 Surgeon: Surgeon(s) and Role: [...] 07/02/2022 Office Visit Vascular Surgery Jing Ghosh, COMPUTER NUMERICAL CONTROL PROGRAMMER [facility] ER VASCULAR SURGERY [place], [place] [address] (Wo rk) 09/02/2022 Clinical Support Dermatology Thai Lynn MD [facility] DR JENNY B[place], [place] [address] (Wo rk) 09/02/2022 Procedure visit Dermatology Jace Lynn MD [facility] DR JENNY B[place], [place] [address] (Wo rk) 09/05/2022 Appointment Cardiology Trinity Reid MD [facility] CARDIOLOGY [place], [place] [address] (Wo rk) 09/05/2022 Office Visit Cardiology Trinity Reid MD [facility] CARDIOLOGY [place], [place] [address] (Wo rk) Scheduled Referrals Name [...] Component Value Ref Test Analysis Performed At [facility] Range Method Time Signature VB Text Department: Vascular Surgery Lab VASCUBASE Report Patient: [id number] (KOKO ZAMORA) CPT: 26152 Referring Physician: FITO SUMMERS ?? Phone: Indications: s/p L DIE CUTTER endart. Diabetes mellitus: no Findings: Right ?Pressure [...] P athologist Signature Heparin UFH 0.42 IU/mL [facility] LABORATORY Comment: Heparin (anti-Xa) levels [...] Organization Address City/State/[place] [address] Differential, Automated (05/21/2022 6:15 AM EDT) P athologist Signature Neutrophils % 58.8 % [facility] LABORATORY Neutr Abs (ANC) 3.97 1.70 - [facility] 6.10 [facility] x10(3)/[facility] LABORATORY Lymphocytes % 25.2 % [facility] LABORATORY Lymphocytes Abs 1.7 0.9 - 3.2 [facility] x10(3)/[facility] LABORATORY Monocytes % 12.9 % [facility] LABORATORY Monocyte Abs 0.9 0.3 - 0.9 [facility] x10(3)/[facility] LABORATORY Eosinophils % 2.1 % [facility] LABORATORY Eosinophils Abs 0.1 0.0 - 0.4 [facility] x10(3)/[facility] LABORATORY Basophils % 0.4 % [facility] LABORATORY Basophils Abs 0.0 0.0 - 0.1 [facility] x10(3)/[facility] LABORATORY Immature Gran % 0.60 % [facility] LABORATORY Comment: Immature granulocytes(IG's)percentage an d absolute count will include metamyelocytes, myelocytes, and promyelo cytes. Blood smears from CBCs yielding IG's will be scanned manually for concor dance. If this scan disagrees with the automated IG or if promyelocytes are not ed, a manual differential will be performed. Rain Gran Abs 0.04 0.00 - 0.04 x10(3)/[facility] LABORATORY Specimen Anatomical Collection Method Collection Time Receive d Time (Source) Location / / Volume Laterality Blood 05/21/2022 6:15 AM 6:38 EDT AM EDT Resulting Agency Comment Spec In Lab Edward Rodríguez MD HEMATOLOGY ORDERABLES Performing Organization Address City/State/[place] [address] (ABNORMAL) Hemogram (05/21/2022 6:15 AM EDT) [facility] gist Method Time Signature WBC 6.8 4.0 - 9.5 [facility] x10(3)/[facility] LABORATORY RBC 3.59 (L) 4.58 - [facility]54 [facility] x10(6)/[facility] LABORATORY Hemoglobin 11.8 (L) 13.7 - [facility] 16.5 g/dL [facility] LABORATORY Hematocrit 34.5 (L) 40.5 - [facility] 48.5 % [facility] LABORATORY MCV 96.1 (H) 82.9 - [facility] 93.1 [facility] LABORATORY MCH 32.9 (H) 27.5 - [facility] XIAO 32.1 pg [facility] LABORATORY MCHC 34.2 32.0 - [facility] 35.7 g/dL [facility] LABORATORY Platelets 198 145 - 357 [facility] x10(3)/[facility] LABORATORY RDWSD 44.9 36.0 - [facility].0 [facility] RDWCV 12.6 11.4 - [facility] 13.8 % [facility] LABORATORY MPV 10.0 7.6 - 12.9 [facility] LABORATORY nRBC % Auto 0.3 % [facility] LABORATORY nRBC Abs Auto 0.020 (H) 0.000 - [facility] 0.000 [facility] x10(3)/[facility] LABORATORY Specimen Anatomical Collection Method Collection Time Receive d Time (Source) Location / / Volume Laterality Blood 05/21/2022 6:15 AM 6:38 EDT AM EDT Resulting Agency Comment Spec In Lab Edward Rodríguez MD HEMATOLOGY ORDERABLES Performing Organization Address City/[facility]/[place] [address] EKG 12 Lead (05/20/2022 7:04 PM EDT) Component Value Ref Range Test Analysis Performed Pathologis t Method Time At Signature Ventricular rate 101 BPM MUSE SYSTEM QRS Duration 116 ms MUSE SYSTEM Q-T Interval 378 ms MUSE SYSTEM QTC Calculated 490 ms MUSE SYSTEM (Bezet) Calculated R [place] -53 degrees MUSE SYSTEM Calculated T [place] 101 degrees MUSE SYSTEM INTERPRETATION Atrial fibrillation [...] Summers MD ECG ORDERABLES Performing Organization Address City/[facility]/ZIP Code Phon e Number MUSE SYSTEM CARDIAC CATHETERIZATION (05/20/2022 6:45 PM EDT) Specimen (Source) Anatomical Location Collection Method / Collectio n Time Received Time / Laterality Volume Narrative CARDIOMAC SYSTEM - 05/20/2022 7:09 PM ED T ?[facility] ? Cardiac Cathete rization/Intervention Report ? Patient Name: Koko Zamora. ? Procedure Date: 05/20/2022 ? A #: [id number] ? Primary Physician: Abundio Servin ? Case #: [id number] ? File Name: [id number] ? Catheterization Order Number: [id number] ? [facility] ? Final Report [place], [place] ? Patient Name: ? Koko Sullivan. Klarissa uson ? ID#: ?[id number] ? : ?1940 ? Procedure Date: ? [...] procedure was Urgent. 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 Chest pain [...] ?3.5 guiding catheter and a 3.5 Fr [facility] [place] [address] ??20 Mhz. ??Imaging ?was successful. ??Image [...] premounted 2. 75 x 30 mm Rudy Elsa (AMPARO) was deployed ? with a maximum [...] may require ?modification of this regimen. C [facility] Interventional Cardiology for ?questions. ?The 1 year [...] 123 65 - 199 [facility] mg/dL [facility] LABORATORY Comment: Supplemental ranges: <140 mg/dL before meals <180 mg/dL all other times of the day Specimen Anatomical Collection Method Collection Time Receive d Time (Source) Location / / Volume Laterality Blood 05/20/2022 5:42 PM 5:42 EDT PM EDT Fito Summers MD POINT OF CARE TEST ORDERABLE S Performing Organization Address City/State/[place] [address] (ABNORMAL) BMP w/fasting Glucose (05/20/2022 10:50 AM EDT) P athologist Signature Glucose 152 (H) 65 - 99 [facility] XIAO Fasting mg/dL [facility] LABORATORY Comment: ?Fasting* Glucose Interpretive [...] of Diabetes Mellitus, Position Statement from the [place] [employer]. ??Diabete s Care, Volume 33, Supplement 1, Nov 2009 BUN 11 10 - 20 mg/dL [facility] LABORATORY Creatinine 0.63 (L) 0.80 - 1.50 mg/dL [facility] LABORATORY Sodium 137 135 - 145 mmol/L [facility] LABORATORY Potassium 3.6 3.5 - 5.0 mmol/L [facility] LABORATORY Comment: Please note: ??Patients with WBC >100,00 0 may have falsely elevated Potassium levels. ??For accurate Potassium quantif ication in these patients send serum separator tube (gold top) for subsequent determinations. ??Contact the Clinical Chemistry Laboratory if there are any qu estions. Chloride 103 98 - 107 mmol/L [facility] LABORATORY CO2 24 22 - 31 mmol/L [facility] LABORATORY Anion Gap 10 5 - 15 mmol/L [facility] LABORATORY Calcium 8.7 8.5 - 10.5 mg/dL [facility] LABORATORY Estimated GFR 97 >=60 mL/min/1.73 m?? [facility] LABORATORY Comment: This patient's estimated [...] MD CHEMISTRY ORDERABLES Performing Organization Address City/[facility]/[place] [address] Heparin (unfractionated) Level (05/20/2022 5:02 AM EDT) P athologist Signature Heparin UFH 0.57 IU/mL [facility] LABORATORY Comment: Heparin (anti-Xa) levels [...] Summers MD HEMATOLOGY ORDERABLES Performing Organization Address City/[facility]/ZIP Code Phon e Number [address] (ABNORMAL) Differential, Automated (05/20/2022 5:02 AM EDT) Patholo gist Method Time Signature Neutrophils % 58.1 % [facility] LABORATORY Neutr Abs (ANC) 4.52 1.70 - [facility] 6.10 [facility] x10(3)/[facility] LABORATORY Lymphocytes % 24.1 % [facility] LABORATORY Lymphocytes Abs 1.9 0.9 - 3.2 [facility] x10(3)/[facility] LABORATORY Monocytes % 13.8 % [facility] LABORATORY Monocyte Abs 1.1 (H) 0.3 - 0.9 [facility] x10(3)/[facility] LABORATORY Eosinophils % 2.6 % [facility] LABORATORY Eosinophils Abs 0.2 0.0 - 0.4 [facility] x10(3)/[facility] LABORATORY Basophils % 0.8 % [facility] LABORATORY Basophils Abs 0.1 0.0 - 0.1 [facility] x10(3)/[facility] LABORATORY Immature Gran % 0.60 % [facility] LABORATORY Comment: Immature granulocytes(IG's)percentage an d absolute count will include metamyelocytes, myelocytes, and promyelo cytes. Blood smears from CBCs yielding IG's will be scanned manually for concor dance. If this scan disagrees with the automated IG or if promyelocytes are not ed, a manual differential will be performed. Rain Gran Abs 0.05 (H) 0.00 - 0.04 x10(3)/[facility] LABORATORY Specimen Anatomical Collection Method Collection Time Receive d Time (Source) Location / / Volume Laterality Blood 05/20/2022 5:02 AM 5:19 EDT AM EDT Resulting Agency Comment Spec In Lab Edward Rodríguez MD HEMATOLOGY ORDERABLES Performing Organization Address City/State/[place] [address] (ABNORMAL) Hemogram (05/20/2022 5:02 AM EDT) Analysis Performed At Patho logist Time Signature WBC 7.8 4.0 - 9.5 [facility] x10(3)/[facility] LABORATORY RBC 3.53 (L) 4.58 - [facility] 5.54 [facility] x10(6)/[facility] LABORATORY Hemoglobin 11.4 (L) 13.7 - [facility] 16.5 g/dL [facility] LABORATORY Hematocrit 34.3 (L) 40.5 - [facility] 48.5 % [facility] LABORATORY MCV 97.2 (H) 82.9 - [facility] 93.1 fL [facility] LABORATORY MCH 32.3 (H) 27.5 - [facility] 32.1 pg [facility] LABORATORY MCHC 33.2 32.0 - [facility] 35.7 g/dL [facility] LABORATORY Platelets 181 145 - 357 [facility] x10(3)/[facility] LABORATORY RDWSD 46.4 (H) 36.0 - [facility] 45.0 [facility] LABORATORY RDWCV 13.0 11.4 - [facility] 13.8 % [facility] LABORATORY MPV 10.4 7.6 - 12.9 [facility] LABORATORY nRBC % Auto 0.0 % [facility] LABORATORY nRBC Abs Auto 0.000 0.000 - [facility] 0.000 [facility] x10(3)/[facility] LABORATORY Specimen Anatomical Collection Method Collection Time Receive d Time (Source) Location / / Volume Laterality Blood 05/20/2022 5:02 AM 2 5:19 EDT AM EDT Resulting Agency Comment Spec In Lab Edward Rodríguez MD HEMATOLOGY ORDERABLES Performing Organization Address City/State/[place] [address] Heparin (unfractionated) Level (05/19/2022 3:26 AM EDT) P athologist Signature Heparin UFH 0.59 IU/mL [facility] LABORATORY Comment: Heparin (anti-Xa) levels [...] Organization Address City/State/[place] [address] (ABNORMAL) Differential, Automated (05/19/2022 3:26 AM EDT) [facility] Method Time Signature Neutrophils % 62.1 % [facility] LABORATORY Neutr Abs (ANC) 4.59 1.70 - [facility] 6.10 [facility] x10(3)/[facility] LABORATORY Lymphocytes % 22.1 % [facility] LABORATORY Lymphocytes Abs 1.6 0.9 - 3.2 [facility] x10(3)/[facility] LABORATORY Monocytes % 13.5 % [facility] LABORATORY Monocyte Abs 1.0 (H) 0.3 - 0.9 [facility] x10(3)/[facility] LABORATORY Eosinophils % 1.3 % [facility] LABORATORY Eosinophils Abs 0.1 0.0 - 0.4 [facility] x10(3)/[facility] LABORATORY Basophils % 0.5 % [facility] LABORATORY Basophils Abs 0.0 0.0 - 0.1 [facility] x10(3)/[facility] LABORATORY Immature Gran % 0.50 % [facility] LABORATORY Comment: Immature granulocytes(IG's)percentage an d absolute count will include metamyelocytes, myelocytes, and promyelo cytes. Blood smears from CBCs yielding IG's will be scanned manually for concor dance. If this scan disagrees with the automated IG or if promyelocytes are not ed, a manual differential will be performed. Rain Gran Abs 0.04 0.00 - 0.04 x10(3)/[facility] LABORATORY Specimen Anatomical Collection Method Collection Time Receive d Time (Source) Location / / Volume Laterality Blood 05/19/2022 3:26 AM 3:59 EDT AM EDT Resulting Agency Comment Spec In Lab Edward Rodríguez MD HEMATOLOGY ORDERABLES Performing Organization Address City/[facility]/[place] [address] (ABNORMAL) Hemogram (05/19/2022 3:26 AM EDT) Analysis Performed At Patho logist Time Signature WBC 7.4 4.0 - 9.5 [facility](3[facility] LABORATORY RBC 3.74 (L) 4.58 - [facility] 5.54 [facility] x10(6)/[facility] LABORATORY Hemoglobin 12.1 (L) 13.7 - [facility] 16.5 g/dL [facility] LABORATORY Hematocrit 36.4 (L) 40.5 - [facility] 48.5 % [facility] LABORATORY MCV 97.3 (H) 82.9 - [facility] 93.1 [facility] LABORATORY MCH 32.4 (H) 27.5 - [facility] 32.1 pg [facility] LABORATORY MCHC 33.2 32.0 - [facility] 35.7 g/dL [facility] LABORATORY Platelets 168 145 - 357 [facility] x10(3)/[facility] LABORATORY RDWSD 46.9 (H) 36.0 - [facility] 45.0 [facility] LABORATORY RDWCV 13.0 11.4 - [facility] 13.8 % [facility] LABORATORY MPV 10.5 7.6 - 12.9 [facility] LABORATORY nRBC % Auto 0.0 % [facility] LABORATORY nRBC Abs Auto 0.000 0.000 - [facility] 0.000 [facility] x10(3)/[facility] LABORATORY Specimen Anatomical Collection Method Collection Time Receive d Time (Source) Location / / Volume Laterality Blood 05/19/2022 3:26 AM 3:59 EDT AM EDT Resulting Agency Comment Spec In Lab Edward Rodríguez MD HEMATOLOGY ORDERABLES Performing Organization Address City/State/[place] [address] TSH (05/18/2022 8:00 PM EDT) P athologist Signature TSH 2.27 0.27 - 4.20 IF[facility] HAGEN mcIU/mL [facility] LABORATORY Comment: Reference Interval (mcIU/mL): Females: ??First Trimester: 0.23-3.88 ??Second Trimester: 0.22-3.90 ??Third Trimester: 0.44-4.66 Specimen Anatomical Collection Method Collection Time Receive d Time (Source) Location / / Volume Laterality Blood 05/18/2022 8:00 PM 8:06 EDT PM EDT Resulting Agency Comment Spec In Lab Fito Summers MD CHEMISTRY ORDERABLES Performing Organization Address City/State/[place] [address] (ABNORMAL) Differential, Automated (05/18/2022 3:34 AM EDT) [facility] gist Method Time Signature Neutrophils % 67.2 % [facility] LABORATORY Neutr Abs (ANC) 5.89 1.70 - [facility] 6.10 [facility] x10(3)/[facility] LABORATORY Lymphocytes % 17.1 % [facility] LABORATORY Lymphocytes Abs 1.5 0.9 - 3.2 [facility] x10(3)/[facility] LABORATORY Monocytes % 13.6 % [facility] LABORATORY Monocyte Abs 1.2 (H) 0.3 - 0.9 [facility] x10(3)/[facility] LABORATORY Eosinophils % 1.0 % [facility] LABORATORY Eosinophils Abs 0.1 0.0 - 0.4 [facility] x10(3)/[facility] LABORATORY Basophils % 0.6 % [facility] LABORATORY Basophils Abs 0.0 0.0 - 0.1 [facility] x10(3)/[facility] LABORATORY Immature Gran % 0.50 % [facility] LABORATORY Comment: Immature granulocytes(IG's)percentage an d absolute count will include metamyelocytes, myelocytes, and promyelo cytes. Blood smears from CBCs yielding IG's will be scanned manually for concor dance. If this scan disagrees with the automated IG or if promyelocytes are not ed, a manual differential will be performed. Rain Gran Abs 0.04 0.00 - 0.04 x10(3)/[facility] LABORATORY Specimen Anatomical Collection Method Collection Time Receive d Time (Source) Location / / Volume Laterality Blood 05/18/2022 3:34 AM 2 3:48 EDT AM EDT Resulting Agency Comment Spec In Lab Edward Rodríguez MD HEMATOLOGY ORDERABLES Performing Organization Address City/State/[place] [address] (ABNORMAL) Hemogram (05/18/2022 3:34 AM EDT) Analysis Performed At Patho logist Time Signature WBC 8.8 4.0 - 9.5 [facility] LABORATORY RBC 3.45 (L) 4.58 - [facility] 5.54 [facility] x10(6)/[facility] LABORATORY Hemoglobin 11.2 (L) 13.7 - [facility] 16.5 g/dL [facility] LABORATORY Hematocrit 33.0 (L) 40.5 - [facility] % [facility] LABORATORY MCV 95.7 (H) 82.9 - [facility] 93.1 [facility] LABORATORY MCH 32.5 (H) 27.5 - [facility] 32.1 pg [facility] LABORATORY MCHC 33.9 32.0 - [facility] 35.7 g/dL [facility] LABORATORY Platelets 130 (L) 145 - 357 [facility] x10(3)/[facility] LABORATORY RDWSD 46.2 (H) 36.0 - [facility] 45.0 [facility] LABORATORY RDWCV 13.2 11.4 - [facility] 13.8 % [facility] LABORATORY MPV 10.8 7.6 - 12.9 [facility] LABORATORY nRBC % Auto 0.0 % [facility] LABORATORY nRBC Abs Auto 0.000 0.000 - [facility] 0.000 [facility] x10(3)/[facility] LABORATORY Specimen Anatomical Collection Method Collection Time Receive d Time (Source) Location / / Volume Laterality Blood 05/18/2022 3:34 AM 2 3:48 EDT AM EDT Resulting Agency Comment Spec In Lab Edward Rodríguez MD HEMATOLOGY ORDERABLES Performing Organization Address City/State/ZIP Code Phon [place] [address] Heparin (unfractionated) Level (05/18/2022 3:34 AM EDT) athologist [facility] Heparin UFH 0.59 IU/mL [facility] LABORATORY Comment: Heparin (anti-Xa) levels [...] Organization Address City/State/[place] [address] Magnesium (05/17/2022 3:33 AM EDT) athologist [facility] Magnesium 0.76 0.69 - 1.07 [facility] mmol/L [facility] LABORATORY Specimen Anatomical Collection Method Collection Time Receive d Time (Source) Location / / Volume Laterality Blood Venous Draw / 05/17/2022 3:33 AM 05/17/20 4:05 Unknown EDT AM EDT Resulting Agency Comment Spec In Lab Dottie Hill APRN CHEMISTRY ORDERABLES Performing Organization Address City/State/ZIP Code Phon e Number [address] (ABNORMAL) Basic Metabolic Panel (non-fasting) (05/17/2022 3:33 AM EDT) athologist [facility] Glucose Lvl 158 65 - 199 [facility] mg/dL [facility] LABORATORY Comment: Diabetes: >=200 mg/dL plus symp toms BUN 12 10 - 20 mg/dL [facility] LABORATORY Creatinine 0.74 (L) 0.80 - 1.50 mg/dL [facility] LABORATORY Sodium 137 135 - 145 mmol/L [facility] LABORATORY Potassium 3.5 3.5 - 5.0 mmol/L [facility] LABORATORY Comment: Please note: ??Patients with WBC >100,00 0 may have falsely elevated Potassium levels. ??For accurate Potassium quantif ication in these patients send serum separator tube (gold top) for subsequent determinations. ??Contact the Clinical Chemistry Laboratory if there are any qu estions. Chloride 102 98 - 107 mmol/L [facility] LABORATORY CO2 25 22 - 31 mmol/L [facility] LABORATORY Anion Gap 10 5 - 15 mmol/L [facility] LABORATORY Calcium 8.4 (L) 8.5 - 10.5 mg/dL [facility] LABORATORY Estimated GFR 92 >=60 mL/min/1.73 m?? [facility] LABORATORY Comment: This patient's estimated [...] Organization Address City/State/[place] [address] (ABNORMAL) Differential, Automated (05/17/2022 3:33 AM EDT) [facility] gist Method Time Signature Neutrophils % 65.5 % [facility] LABORATORY Neutr Abs (ANC) 6.84 (H) 1.70 - [facility] 6.10 [facility] x10(3)/[facility] LABORATORY Lymphocytes % 19.7 % [facility] LABORATORY Lymphocytes Abs 2.1 0.9 - 3.2 [facility] x10(3)/[facility] LABORATORY Monocytes % 13.1 % [facility] LABORATORY Monocyte Abs 1.4 (H) 0.3 - 0.9 [facility] x10(3)/[facility] LABORATORY Eosinophils % 0.6 % [facility] LABORATORY Eosinophils Abs 0.1 0.0 - 0.4 [facility] x10(3)/[facility] LABORATORY Basophils % 0.6 % [facility] LABORATORY Basophils Abs 0.1 0.0 - 0.1 [facility] x10(3)/[facility] LABORATORY Immature Gran % 0.50 % [facility] LABORATORY Comment: Immature granulocytes(IG's)percentage an d absolute count will include metamyelocytes, myelocytes, and promyelo cytes. Blood smears from CBCs yielding IG's will be scanned manually for concor dance. If this scan disagrees with the automated IG or if promyelocytes are not ed, a manual differential will be performed. Rain Gran Abs 0.05 (H) 0.00 - 0.04 x10(3)/[facility] LABORATORY Specimen Anatomical Collection Method Collection Time Receive d Time (Source) Location / / Volume Laterality Blood 05/17/2022 3:33 AM 3:53 EDT AM EDT Resulting Agency Comment Spec In Lab Edward Rodríguez MD HEMATOLOGY ORDERABLES Performing Organization Address City/State/ZIP Code Phon e Number [address] (ABNORMAL) Hemogram (05/17/2022 3:33 AM EDT) Analysis Performed At Patho logist Time Signature WBC 10.4 (H) 4.0 - 9.5 [facility] x10(3)/[facility] LABORATORY RBC 3.72 (L) 4.58 - [facility] 5.54 [facility] x10(6)/[facility] LABORATORY Hemoglobin 12.0 (L) 13.7 - [facility] 16.5 g/dL [facility] LABORATORY Hematocrit 36.4 (L) 40.5 - [facility] 48.5 % [facility] LABORATORY MCV 97.8 (H) 82.9 - [facility] 93.1 [facility] LABORATORY MCH 32.3 (H) 27.5 - [facility] 32.1 pg [facility] LABORATORY MCHC 33.0 32.0 [facility]dL [facility] LABORATORY Platelets 149 145 - 357 [facility] x10(3)/[facility] LABORATORY RDWSD 48.7 (H) 36.0 - [facility] 45.0 [facility] LABORATORY RDWCV 13.5 11.4 - [facility] 13.8 % [facility] LABORATORY MPV 10.6 7.6 - 12.9 [facility] LABORATORY nRBC % Auto 0.0 % [facility] LABORATORY nRBC Abs Auto 0.000 0.000 - [facility] 0.000 [facility] x10(3)/[facility] LABORATORY Specimen Anatomical Collection Method Collection Time Receive d Time (Source) Location / / Volume Laterality Blood 05/17/2022 3:33 AM 3:53 EDT AM EDT Resulting Agency Comment Spec In Lab Edward Rodríguez MD HEMATOLOGY ORDERABLES Performing Organization Address City/State/[place] [address] (ABNORMAL) Urinalysis Microscopic Exam (05/16/2022 11:15 PM EDT) P athologist Signature RBC UA 8 (H) 0 - 3 /HPF [facility] LABORATORY WBC UA 2 0 - 3 /HPF [facility] LABORATORY Specimen Anatomical Collection Method Collection Time Receive d Time (Source) Location / / Volume Laterality Clean Catch 05/16/2022 11:15 05/16/2022 Urine PM EDT 11:30 PM EDT Resulting Agency Comment Spec In Lab Barbie Ashraf MD URINE ORDERABLES Performing Organization Address City/[facility]/ZIP Code Phon e Number [place] [phone] HOSPITAL LABORATORY Drive (ABNORMAL) Urinalysis with reflex Culture (05/16/2022 11:15 PM EDT) [facility] gist Method Time Signature Glucose UA Negative Negative [facility] mg/dL [facility] LABORATORY Protein UA Negative Negative [facility] mg/dL [facility] LABORATORY Bilirubin UA Negative Negative [facility] mg/dL [facility] LABORATORY Comment: Clinical correlation required for positi ve Urine Bilirubin results as false positive may occur with some drugs and d rug related products. If a false positive is suspected a serum total bili quarles should be considered if clinically indicated. Urobilinogen UA Normal Normal mg/dL [facility] LABORATORY pH UA 6.0 5.0 - 8.0 [facility] LABORATORY Blood UA Small (A) Negative mg/dL [facility] LABORATORY Ketones UA Trace (A) Negative mg/dL [facility] LABORATORY Nitrite UA Negative Negative [facility] LABORATORY Leukocytes UA Negative Negative mcL [facility] LABORATORY Appearance UA Clear Clear [facility] LABORATORY Spec [place] UA 1.021 1.005 - 1.030 [facility] LABORATORY Color UA Yellow Yellow [facility] LABORATORY Culture Reflexed No [facility] LABORATORY Specimen Anatomical Collection Method Collection Time Receive d Time (Source) Location / / Volume Laterality Clean Catch 05/16/2022 11:15 05/16/2022 Urine PM EDT 11:30 PM EDT Resulting Agency Comment Spec In Lab Fito Summers MD URINE ORDERABLES Performing Organization Address City/State/ZIP Code Phon e Number [place] [phone] HOSPITAL LABORATORY Drive Heparin (unfractionated) Level (05/16/2022 10:59 PM EDT) athologist Signature Heparin UFH 0.65 IU/mL [facility] LABORATORY Comment: Specimen drawn more [...] Organization Address City/State/[place] [address] XR Chest One View [...] who have questions please contact the health lpn care manager that requested your imaging first. ? [...] ho have questions please contact the health lpn care manager that requested your imaging first. Fito Summers MD IMG DX ORDERABLES EKG 12 Lead (05/16/2022 8:57 PM EDT) Component Value Ref Range Test Analysis Performed Pathologis t Method Time At Signature Ventricular rate 117 BPM MUSE SYSTEM QRS Duration 112 ms MUSE SYSTEM Q-T Interval 346 ms MUSE SYSTEM QTC Calculated 482 ms MUSE SYSTEM (Bezet) Calculated R [place] -48 degrees MUSE SYSTEM Calculated T [place] 111 degrees MUSE SYSTEM INTERPRETATION Atrial fibrillation with rapid ventricular response MUSE SYSTEM Left anterior fascicular block Minimal voltage criteria for LVH, may be normal variant ( Swoope product ) Nonspecific ST and T wave [...] EDT) athologist Signature Heparin UFH 0.53 IU/mL [facility] LABORATORY Comment: Heparin (anti-Xa) levels [...] Summers MD HEMATOLOGY ORDERABLES Performing Organization Address City/[facility]/[place] [address] ECHOCARDIOGRAM COMPLETE W CONTRAST (05/16/2022 12:49 PM EDT) athologist Signature EF 28 [facility] Specimen (Source) Anatomical Collection Method Collection Time Re ceived Time Location / / Volume Laterality 05/16/2022 11:22 AM EDT Narrative [facility] - 05/16/2022 1:54 PM EDT [facility] ?[address] ? [place] [address] ?Voice: ?Fax: ? Echocardiogram Report Name: KOKO ZAMORA ?Study Date: 05/16/2022 11:22 AM ? Patient Location: [facility] [address] B : 1940 ? Height: 67.5 in ? Account: [id number] Age: 81 yrs ? Weight: 176 lb Gender: Male ?BSA: 1.9 m2 Ordering Physician: FITO SUMMERS Referring Physician: MALI FLORIAN Performed By: Jolene Bernard RDCS Exam Location: [facility]. Interpretation Summary Left ventricle is mildly dilated. [...] and LV systolic dysfunction are new. Procedure Complete-[id number]. Image enhancement Optiso n was used for [...] note might be different from the original. [address] [place] [address] Voice: Fax: Echocardiogram Report Name: KOKO ZAMORA Study Date: 05/2022 11:22 AM Patient Location: [address] [place] [address] : 1940 Height: 67.5 in Account: [id number] Age: 81 yrs Weight: 176 lb Gender: Male BSA: 1.9 m2 Ordering Physician: FITO SUMMERS Referring Physician: MALI FLORIAN Performed By: Jolene Bernard RDCS Exam Location: [facility]. Interpretation Summary Left ventricle is mildly dilated. [...] and LV systolic dysfunction are new. Procedure Complete-[id number]. Image enhancement Optiso n was used for [...] (ABNORMAL) Differential, Automated (05/16/2022 3:01 AM EDT) [facility] Method Time Signature Neutrophils % 78.8 % [facility] LABORATORY Neutr Abs (ANC) 9.11 (H) 1.70 - [facility] 6.10 [facility] x10(3)/[facility] L LABORATORY Lymphocytes % 9.4 % [facility] LABORATORY Lymphocytes Abs 1.1 0.9 - 3.2 [facility] x10(3)/[facility] LABORATORY Monocytes % 10.9 % [facility] LABORATORY Monocyte Abs 1.3 (H) 0.3 - 0.9 [facility] x10(3)/[facility] LABORATORY Eosinophils % 0.0 % [facility] LABORATORY Eosinophils Abs 0.0 0.0 - 0.4 [facility] x10(3)/[facility] LABORATORY Basophils % 0.3 % [facility] LABORATORY Basophils Abs 0.0 0.0 - 0.1 [facility] x10(3)/[facility] LABORATORY Immature Gran % 0.60 % [facility] LABORATORY Comment: Immature granulocytes(IG's)percentage an d absolute count will include metamyelocytes, myelocytes, and promyelo cytes. Blood smears from CBCs yielding IG's will be scanned manually for concor dance. If this scan disagrees with the automated IG or if promyelocytes are not ed, a manual differential will be performed. Rain Gran Abs 0.07 (H) 0.00 - 0.04 x10(3)/[facility] LABORATORY Specimen Anatomical Collection Method Collection Time Receive d Time (Source) Location / / Volume Laterality Blood 05/16/2022 3:01 AM 2 3:36 EDT AM EDT Resulting Agency Comment Spec In Lab Erin Garza MD HEMATOLOGY ORDERABLES Performing Organization Address City/State/[place] [address] (ABNORMAL) Hemogram (05/16/2022 3:01 AM EDT) Analysis Performed At Patho logist Time Signature WBC 11.6 (H) 4.0 - 9.5 [facility] x10(3)/[facility] LABORATORY RBC 3.62 (L) 4.58 - [facility] 5.54 [facility] x10(6)/[facility] LABORATORY Hemoglobin 12.0 (L) 13.7 - [facility] 16.5 g/dL [facility] LABORATORY Hematocrit 35.3 (L) 40.5 - [facility] 48.5 % [facility] LABORATORY MCV 97.5 (H) 82.9 - [facility] 93.1 fL [facility] LABORATORY MCH 33.1 (H) 27.5 - [facility] 32.1 pg [facility] LABORATORY MCHC 34.0 32.0 - [facility] 35.7 g/dL [facility] LABORATORY Platelets 151 145 - 357 [facility] x10(3)/[facility] LABORATORY RDWSD 47.6 (H) 36.0 - [facility] 45.0 [facility] LABORATORY RDWCV 13.3 11.4 - [facility] 13.8 % [facility] LABORATORY MPV 10.5 7.6 - 12.9 [facility] XIAO [facility] LABORATORY nRBC % Auto 0.0 % [facility] LABORATORY nRBC Abs Auto 0.000 0.000 - [facility] 0.000 [facility] x10(3)/[facility] LABORATORY Specimen Anatomical Collection Method Collection Time Receive d Time (Source) Location / / Volume Laterality Blood 05/16/2022 3:01 AM 2 3:36 EDT AM EDT Resulting Agency Comment Spec In Lab Erin Garza MD HEMATOLOGY ORDERABLES Performing Organization Address City/[facility]/ZIP [facility] Phon e Number [address] Phosphorus (05/16/2022 3:01 AM EDT) P athologist Signature Phosphorus 3.7 2.5 - 4.5 [facility] mg/dL [facility] LABORATORY Specimen Anatomical Collection Method Collection Time Receive d Time (Source) Location / / Volume Laterality Blood 05/16/2022 3:01 AM 2 3:36 EDT AM EDT Resulting Agency Comment Spec In Lab Fito Summers MD CHEMISTRY ORDERABLES Performing Organization Address City/[facility]/ZIP Code Phon e Number [address] Magnesium (05/16/2022 3:01 AM EDT) P athologist Signature Magnesium 0.77 0.69 - 1.07 [facility] mmol/L [facility] LABORATORY Specimen Anatomical Collection Method Collection Time Receive d Time (Source) Location / / Volume Laterality Blood 05/16/2022 3:01 AM 2 3:36 EDT AM EDT Resulting Agency Comment Spec In Lab Fito Summers MD CHEMISTRY ORDERABLES Performing Organization Address City/State/[place] [address] (ABNORMAL) Basic Metabolic Panel (non-fasting) (05/16/2022 3:01 AM EDT) P athologist Signature Glucose Lvl 222 (H) 65 - 199 [facility] mg/dL [facility] LABORATORY Comment: Diabetes: >=200 mg/dL plus symp toms BUN 12 10 - 20 mg/dL [facility] LABORATORY Creatinine 0.66 (L) 0.80 - 1.50 mg/dL [facility] LABORATORY Sodium 138 135 - 145 mmol/L [facility] LABORATORY Potassium 4.5 3.5 - 5.0 mmol/L [facility] LABORATORY Comment: Please note: ??Patients with WBC >100,00 0 may have falsely elevated Potassium levels. ??For accurate Potassium quantif ication in these patients send serum separator tube (gold top) for subsequent determinations. ??Contact the Clinical Chemistry Laboratory if there are any qu estions. Chloride 108 (H) 98 - 107 mmol/L [facility] LABORATORY CO2 22 22 - 31 mmol/L [facility] LABORATORY Anion Gap 8 5 - 15 mmol/L [facility] LABORATORY Calcium 8.2 (L) 8.5 - 10.5 mg/dL [facility] LABORATORY Estimated GFR 95 >=60 mL/min/1.73 m?? [facility] LABORATORY Comment: This patient's estimated [...] Organization Address City/State/[place] [address] (ABNORMAL) BLOOD GAS 2 ARTERIAL (05/15/2022 3:33 PM EDT) Analysis Performed At Patho logist Time Signature pH Art 7.33 (L) 7.35 - [facility] 7.45 [facility] LABORATORY pCO2 Art 41 35 - 45 [facility] mmHg [facility] LABORATORY pO2 Art 131 (H) 85 - 104 [facility] LABORATORY HCO3 Art 21.1 20.0 - [facility] 26.0 [facility] BE Art -4.8 (L) -3.0 - 3.0 [facility] mmol/L [facility] LABORATORY Hgb Blood Gas 13.4 (L) 13.7 - [facility] 16.5 g/dL [facility] LABORATORY O2HB Art 96.9 94.0 - [facility] 97.0 % [facility] LABORATORY COHB Art 1.4 % [facility] LABORATORY Comment: Nonsmokers: 0.5-1.5% COHB Smokers: Variable, but usually less than 10% Toxic: 20-30% COHB Lethal: Greater than 60% COHB METHB Art 0.3 <=1.5 % [facility] LABORATORY Na Whole Blood 139 135 - 145 mmol/L [facility] LABORATORY K Whole Blood 3.8 3.5 - 5.0 mmol/L [facility] LABORATORY Comment: Please note: Patients with WBC >100,000 may have falsely elevated Potassium levels. Contact the Clinical Chemistry L aboratory if there are any questions. ICa Whole Blood 1.32 1.15 - 1.33 mmol/L [facility] LABORATORY Comment: Note: ??Total bilirubin higher than 20 m g/dL may lead to falsely low ionized calcium. CL Whole Blood 113 (H) 98 - 107 mmol/L [facility] LABORATORY Gluc Whole Bld 136 65 - 199 mg/dL [facility] LABORATORY Comment: Diabetes: >=200 mg/dL plus symp toms. Lactate WB 2.0 0.5 - 2.2 mmol/L [facility] LABORATORY Specimen Anatomical Collection Method Collection Time Receive d Time (Source) Location / / Volume Laterality Blood 05/15/2022 3:33 PM 3:[address] Jamel Torre MD CHEMISTRY ORDERABLES Performing Organization Address City/State/[place] [address] (ABNORMAL) BLOOD GAS 2 ARTERIAL (05/15/2022 2:06 PM EDT) Analysis Performed At Patho logist Time Signature pH Art 7.39 7.35 - [facility] 7.45 [facility] LABORATORY pCO2 Art 35 35 - 45 [facility] LABORATORY pO2 Art 135 (H) 85 - 104 [facility] LABORATORY HCO3 Art 20.8 20.0 - [facility] 26.0 [facility] mmol/L [facility] LABORATORY BE Art -4.2 (L) -3.0 - 3.0 [facility] mmol/L [facility] LABORATORY Hgb Blood Gas 14.5 13.7 - [facility] 16.5 g/dL [facility] LABORATORY O2HB Art 97.2 (H) 94.0 - [facility] 97.0 % [facility] LABORATORY COHB Art 1.2 % [facility] LABORATORY Comment: Nonsmokers: 0.5-1.5% COHB Smokers: Variable, but usually less than 10% Toxic: 20-30% COHB Lethal: Greater than 60% COHB METHB Art 0.3 <=1.5 % [facility] LABORATORY Na Whole Blood 140 135 - 145 mmol/L [facility] LABORATORY K Whole Blood 3.8 3.5 - 5.0 mmol/L [facility] LABORATORY Comment: Please note: Patients with WBC >100,000 may have falsely elevated Potassium levels. Contact the Clinical Chemistry L aboratory if there are any questions. ICa Whole Blood 1.12 (L) 1.15 - 1.33 mmol/L [facility] LABORATORY Comment: Note: ??Total bilirubin higher than 20 m g/dL may lead to falsely low ionized calcium. CL Whole Blood 109 (H) 98 - 107 mmol/L [facility] LABORATORY Gluc Whole Bld 152 65 - 199 mg/dL [facility] LABORATORY Comment: Diabetes: >=200 mg/dL plus symp toms. Lactate WB 1.5 0.5 - 2.2 mmol/L [facility] LABORATORY Specimen Anatomical Collection Method Collection Time Receive d Time (Source) Location / / Volume Laterality Blood 05/15/2022 2:06 PM 2:[address] Jamel Torre MD CHEMISTRY ORDERABLES Performing Organization Address City/[facility]/[place] [address] (ABNORMAL) Prothrombin Time (05/15/2022 12:30 PM EDT) P athologist Signature PT 12.9 (H) 9.4 - 12.5 [facility] LABORATORY INR 1.1 [facility] LABORATORY Comment: An INR [...] Morales DO HEMATOLOGY ORDERABLES Performing Organization Address City/[facility]/[place] [address] (ABNORMAL) APTT (05/15/2022 12:30 PM EDT) P athologist Signature PTT 76 (H) 25 - 37 sec [facility] LABORATORY Comment: The PTT is [...] Morales DO HEMATOLOGY ORDERABLES Performing Organization Address City/[facility]/ZIP Code Phon e Number [address] Gold Tube HOLD (05/15/2022 12:20 PM EDT) P athologist Signature Gold Hold Sample in [facility]. [facility] LABORATORY Specimen Anatomical Collection Method Collection Time Receive d Time (Source) Location / / Volume Laterality Blood No Charge / 05/15/2022 12:20 05/15/2022 Unknown PM EDT 12:20 PM EDT Lc TRIPP CHEMISTRY ORDERABLES Performing Organization Address City/[facility]/ZIP Code Phon e Number [address] Type and Screen Validity (05/15/2022 12:00 PM EDT) [facility] Method Time Signature T&S only valid [facility] LABORATORY Comment: This Type and Screen result is only valid at the [facility] Specimen Anatomical Collection Method Collection Time Receive d Time (Source) Location / / Volume Laterality Blood 05/15/2022 12:00 05/15/2022 PM EDT 12:17 PM EDT Resulting Agency Comment Spec In Lab Lc TRIPP BLOOD BANK ORDERABLES Performing Organization Address City/[facility]/ZIP Code Phon e Number [address] ABORH Recheck Status (05/15/2022 12:00 PM EDT) [facility] [employer] Method Time Signature ABORH Recheck Order Placed [facility] LABORATORY ABORH Type Complete [facility] LABORATORY Specimen Anatomical Collection Method Collection Time Receive d Time (Source) Location / / Volume Laterality Blood 05/15/2022 12:00 05/15/2022 PM EDT 12:17 PM EDT Resulting Agency Comment Spec In Lab Lc TRIPP BLOOD BANK ORDERABLES Performing Organization Address City/[facility]/[place] [address] CK (05/15/2022 12:00 PM EDT) P athologist Signature CK, Total 87 0 - 200 [facility] unit/L [facility] LABORATORY Specimen Anatomical Collection Method Collection Time Receive d Time (Source) Location / / Volume Laterality Blood Venous Draw / 05/15/2022 12:00 05/15/2022 Unknown PM EDT 12:19 PM EDT Resulting Agency Comment Spec In Lab Fito Summers MD CHEMISTRY ORDERABLES Performing Organization Address City/[facility] [place] [address] Antibody screen (05/15/2022 12:00 PM EDT) [facility] Method Time Signature Ab Screen Negative [facility] LABORATORY Expires at 05/18/2022 [facility] [id number] on: [facility] LABORATORY Specimen Anatomical Collection Method Collection Time Receive d Time (Source) Location / / Volume Laterality Blood 05/15/2022 12:00 05/15/2022 PM EDT 12:17 PM EDT Resulting Agency Comment Spec In Lab Lc TRIPP BLOOD BANK ORDERABLES Performing Organization Address City/[facility]/[place] [address] ABO/Rh Typing (05/15/2022 12:00 PM EDT) P athologist Signature ABORh Type O Pos [facility] LABORATORY Specimen Anatomical Collection Method Collection Time Receive d Time (Source) Location / / Volume Laterality Blood 05/15/2022 12:00 05/15/2022 PM EDT 12:17 PM EDT Resulting Agency Comment Spec In Lab Lc TRIPP BLOOD BANK ORDERABLES Performing Organization Address City/[facility]/[place] [address] (ABNORMAL) Differential, Automated (05/15/2022 12:00 PM EDT) [facility] Method Time Signature Neutrophils % 79.4 % [facility] LABORATORY Neutr Abs (ANC) 7.49 (H) 1.70 - [facility] 6.10 [facility] x10(3)/[facility] LABORATORY Lymphocytes % 11.3 % [facility] LABORATORY Lymphocytes Abs 1.1 0.9 - 3.2 [facility] x10(3)/[facility] LABORATORY Monocytes % 7.8 % [facility] LABORATORY Monocyte Abs 0.7 0.3 - 0.9 [facility] x10(3)/[facility] LABORATORY Eosinophils % 0.6 % [facility] LABORATORY Eosinophils Abs 0.1 0.0 - 0.4 [facility] x10(3)/[facility] LABORATORY Basophils % 0.6 % [facility] LABORATORY Basophils Abs 0.1 0.0 - 0.1 [facility] x10(3)/[facility] LABORATORY Immature Gran % 0.30 % [facility] LABORATORY Comment: Immature granulocytes(IG's)percentage an d absolute count will include metamyelocytes, myelocytes, and promyelo cytes. Blood smears from CBCs yielding IG's will be scanned manually for concor dance. If this scan disagrees with the automated IG or if promyelocytes are not ed, a manual differential will be performed. Rain Gran Abs 0.03 0.00 - 0.04 x10(3)/[facility] LABORATORY Specimen Anatomical Collection Method Collection Time Receive d Time (Source) Location / / Volume Laterality Blood 05/15/2022 12:00 05/15/2022 PM EDT 12:19 PM EDT Resulting Agency Comment Spec In Lab Lc TRIPP HEMATOLOGY ORDERABLES Performing Organization Address City/State/[place] [address] (ABNORMAL) Hemogram (05/15/2022 12:00 PM EDT) Analysis Performed At Patho logist Time Signature WBC 9.4 4.0 - 9.5 [facility] x10(3)/[facility] LABORATORY RBC 4.48 (L) 4.58 - [facility]54 [facility] x10(6)/[facility] LABORATORY Hemoglobin 14.5 13.7 - [facility] 16.5 g/dL [facility] LABORATORY Hematocrit 42.4 40.5 - [facility] % [facility] LABORATORY MCV 94.6 (H) 82.9 - [facility] 93.1 [facility] LABORATORY MCH 32.4 (H) 27.5 - [facility] 32.1 pg [facility] LABORATORY MCHC 34.2 32.0 - [facility] g/dL [facility] LABORATORY Platelets 209 145 - 357 [facility] x10(3)/[facility] LABORATORY RDWSD 45.9 (H) 36.0 - [facility]0 [facility] LABORATORY RDWCV 13.1 11.4 - [facility] 13.8 % [facility] LABORATORY MPV 10.5 7.6 - 12.9 [facility] LABORATORY nRBC % Auto 0.0 % [facility] LABORATORY nRBC Abs Auto 0.000 0.000 - [facility] 0.000 [facility] x10(3)/[facility] LABORATORY Specimen Anatomical Collection Method Collection Time Receive d Time (Source) Location / / Volume Laterality Blood 05/15/2022 12:00 05/15/2022 PM EDT 12:19 PM EDT Resulting Agency Comment Spec In Lab Lc TRIPP HEMATOLOGY ORDERABLES Performing Organization Address City/State/[place] [address] (ABNORMAL) Basic Metabolic Panel (non-fasting) (05/15/2022 12:00 PM EDT) P athologist Signature Glucose Lvl 203 (H) 65 - 199 [facility] mg/dL [facility] LABORATORY Comment: Diabetes: >=200 mg/dL plus symp toms BUN 16 10 - 20 mg/dL [facility] LABORATORY Creatinine 0.84 0.80 - 1.50 mg/dL [facility] LABORATORY Sodium 141 135 - 145 mmol/L [facility] LABORATORY Potassium 4.7 3.5 - 5.0 mmol/L [facility] LABORATORY Comment: Please note: ??Patients with WBC >100,00 0 may have falsely elevated Potassium levels. ??For accurate Potassium quantif ication in these patients send serum separator tube (gold top) for subsequent determinations. ??Contact the Clinical Chemistry Laboratory if there are any qu estions. Chloride 107 98 - 107 mmol/L [facility] LABORATORY CO2 23 22 - 31 mmol/L [facility] LABORATORY Anion Gap 11 5 - 15 mmol/L [facility] LABORATORY Calcium 8.5 8.5 - 10.5 mg/dL [facility] LABORATORY Estimated GFR 89 >=60 mL/min/1.73 m?? [facility] LABORATORY Comment: This patient's estimated [...] Organization Address City/State/[place] [address] documented in this encounter [...] mg = 1.8 mg/kg/dose ? 67.7 kg [place] weight), Intravenous, at 11.3 mL/hr, EVERY 3 [...] mg = 2.4 mg/kg/dose ? 67.7 kg [place] weight), Intravenous, at 15 mL/hr, ONCE, 1 [...] mg = 0.24 mg/kg/dose ? 67.7 kg [place] weight), Oral, 2 TIMES DAILY, 2 doses, [...] mg = 0.48 mg/kg/dose ? 67.7 kg [place] weight), Oral, 2 TIMES DAILY, 2 doses, [...] mg = 0.12 mg/kg/dose ? 67.7 kg [place] weight), Oral, 2 TIMES DAILY, 2 doses, [...] Oral, 2 TIMES DAILY, First dose [facility] 05/18/22 at 2100, Until Discontinued, Routine [...] - Reason: Transfer to a Procedural area)1955 ([facility] Unhold - Provider: Admin Adt) 15 (Given - Provider: Etta contreras, RN) 1,000 mcg, Oral, DAILY, First dose on 05/16/22 at 0900, Until Discontinued, Routine metoprolol tartrate (Lopressor) tablet 12.5 mg (CANCEL ED) 0838 (Given - Provider: Caroline Zamora, RN)2008 (Given - Provider: Nuris Lester RN) 0853 (Given - Provider: Barbie Joyce RN)1750 ([facility] Hold - Provider: Admin Adt - Reason: Transfer to a Procedural area)1955 ([facility] Unhold - Provider: Admin Adt)2004 (Given - [...] 0852 (Given - Provider: Barbie Joyce RN)1750 ([facility] Hold - Provider: Admin Adt - Reason: Transfer to a Procedural area)1955 ([facility] Unhold - Provider: Admin Adt) 0816 (Given [...] - Reason: Transfer to a Procedural area)1955 ([facility] Unhold - Provider: Admin Adt) 0817 (Given [...] - Reason: Transfer to a Procedural area)1955 ([facility] Unhold - Provider: Admin Adt) 0816 (Given [...] (New Bag - Provider: Barbie Joyce RN)1750 ([facility] Hold - Provider: Admin Adt - Reason: Transfer to a Procedural area)1955 ([facility] Unhold - Provider: Admin Adt) 021 (Restarted [...] Admin Adt) 0-8,000 Units, Intravenous, BOLUS PER [facility] PROTOCOL, Starting on Fri05/16/22 at 0758, [...]
Routine documented in this encounter Care Teams Spice Mixer Relationship Specialty Start Date End Date Bobby Das MD PCP - General 10/02/[address] [place] [address] [place] [id number] documented as of this encounter
--- OUTSIDE RECORDS SUMMARY | 2022-06-28 11:07 | XMS_ITS | Encounter Summary ---
:1940 [place] [address] Care Team Providers Name Role Phone Bobby Das MD Primary Care Provider Reason for Visit Auth/Cert Specialty Diagnoses / Procedures Referred By Contact Refer red To Contact Diagnoses Limb ischemia LLE thrombus Fito Summers MD [facility] [place] [address] Referral ID Status Reason Start Date Expiration Date Visits Requ ested Visits Authorized [id number] 1 1 Encounter Details Date Type Department Care Team Description 05/15/2022 Anesthesia Event Main Operating Room Cari Briggs MD [facility] [place] [address] [facility] Duong Aguillon CRNA [facility] [place] [address] [place] [address] Anesthesia Record Procedure Summary Procedure Name [...] RN Amb Hilton houser RN fossa), left; rrzo-pdz-cttwnx catheter system; 18 gauge; OSH; site care per policy/procedure, site symptomatic, removed per policy/procedure, catheter/device intact; 05/16/22; 1117 PIV 05/15/22; 1204; median 05/15/22 1204 by 05/16/22 0738 by cubital vein (antecubital Marcia Dimas RN Gon zalez, Adriana, fossa), right; RN xqnp-qao-ghaljm catheter system; 18 gauge; OSH; 05/16/22; 0738 [...] Procedure Summary Date: 05/15/22 Room / Location: [facility] OR [address] [place] [address] MAIN OR Anesthesia Start: 1320 Anesthesia Stop: 1633 Procedure: EMBOLECTOMY OR THROMBECTOMY, FEMOROPOPLITEAL, AORTOILIAC ARTERY BY LEG INCISION (WRVU 19.48) (Left ) Diagnosis: (Acute Limb Ischemia) Surgeons: Fito Summers MD Responsible Provider: Cari Ventura MD Anesthesia Type: general ASA Status: 3 - Emergent All Anesthesia Providers: Anesthesiologist: Cari Ventura MD SHELF FILLER: Torres Aguilar CRNA Vitals Value Taken Time BP 108/69 05/15/22 1715 Temp 36.3 ??C (97.3 ??F) 05/15/22 1633 Pulse 110 05/15/22 1719 Resp 16 05/15/22 1719 SpO2 89 % 05/15/22 1719 Pain Level Vitals shown include unvalidated device data. Patient Location: PACU/[facility] Level of Consciousness: Awake and Alert Pain [...] AORTOILIAC [facility] BY LEG INCISION [facility] Patient Active Problem List Diagnosis [...] IR Biopsy Spine 07/20/2019 Bobby Marshall MD [facility] INTERVENTIONL RAD ??? IR VERTEBROPLASTY LUMBAR MULTIPLE LEVELS 07/20/2019 IR Vertebroplasty Lumbar Multiple Levels 07/20/2019 Bobby Marshall MD [facility] INTERVENTIONL RAD ??? IR VERTEBROPLASTY THORACIC SINGLE LEVEL 10/25/2020 IR Vertebroplasty Thoracic Single Level 10/25/2020 Matt Chisholm MD [facility] INTERVENTIONL RAD Social History Tobacco [...] a(n) intravenous induction 81 yo current and longterm smoker with significant daily etoh use (6 [...] discussed with patient who. Plan discussed with SHELF FILLER. Anesthesia Screening documented in this encounter Plan of Treatment Upcoming Encounters Date Type Specialty Care Team Description 07/02/2022 Office Visit Vascular Surgery Jing Ghosh APRN [facility] VASCULAR SURGERY [place], [place] [address] (Wo rk) 09/02/2022 Clinical Support Dermatology Thai Lynn MD [facility] DR JENNY BILLY-DERMAT [place], [place] [address] (Wo rk) 09/02/2022 Procedure visit Dermatology Jace Lynn MD [facility] DR JENNY BILLY-DERMAT [place], [place] [address] (Wo rk) 09/05/2022 Appointment Cardiology Trinity Reid MD [facility] CARDIOLOGY [place], [place] [address] (Wo rk) 09/05/2022 Office Visit Cardiology Trinity Reid MD [facility] CARDIOLOGY [place], [place] [address] (Wo rk) documented as of [...] Routine documented in this encounter Care Teams Lap Machine Tender Relationship Specialty Start Date End Date Bobby Das MD PCP - General 10/02/[address] [place] [address] [place] [phone] documented as of this encounter
--- OUTSIDE RECORDS SUMMARY | 2022-06-28 11:08 | XMS_ITS | Encounter Summary ---
:1940 Author Organization [facility] [place] [address] Care Team Providers Name Role Phone Bobby Das MD Primary Care Provider Encounter Details Date Type Department Care Team Description 08/06/2020 Ancillary Procedure Radiology at [facility] LiseAmy madrigal [address] [place] [address] 10 LITTLE JAY [phone] NEUROSURGERY-N [place], [place] [address] Social History Tobacco Use Types [...] 07/02/2022 Office Visit Vascular Surgery Jing Ghosh, VALANCE CUTTER [facility] ER VASCULAR SURGERY 0375 (Wo rk) 09/02/2022 Clinical Support Dermatology Thai Lynn MD [facility] ER DR JENNY BILLY-DERMAT [place], [place] [address] (Wo rk) 09/02/2022 Procedure visit Dermatology Jace Lynn MD [facility] DR JENNY BILLY-DERMAT [place], [place] [address] (Wo rk) 09/05/2022 Appointment Cardiology Trinity Reid MD [facility] ER CARDIOLOGY [place], [place] [address] (Wo rk) 09/05/2022 Office Visit Cardiology Trinity Reid MD [facility] ER CARDIOLOGY 0375 (Wo rk) documented as of this [...] Organization Address City/State/ZIP Code Phon e Number [place], [place] documented in this encounter Visit Diagnoses Not on filedocumented in this encounter Care Teams Pipe Layer Helper Relationship Specialty Start Date End Date Bobby Das MD PCP - General 10/02/[address] [place] [address] [place] [phone] documented as of this encounter
--- OUTSIDE RECORDS SUMMARY | 2022-06-28 11:08 | XMS_ITS | Encounter Summary ---
:1940 [place] [address] Care Team Providers Name Role Phone Bobby Das MD Primary Care Provider Encounter Details Date Type Department Care Team Description 05/15/2022 Ancillary Procedure Radiology Library at [facility], Lavell Butt, [facility] [place] [address] VASCULAR SURGERY [phone] [place], [place] [address] (Wo rk) Social History Tobacco [...] Visit Vascular Surgery Jing Ghosh, DIRECTOR OF PERSONNEL [facility] VASCULAR SURGERY [place], [place] [address] (Wo rk) 09/02/2022 Clinical Support Dermatology Thai Lynn MD [facility] DR JENNY BILLY-DERMAT [place], [place] [address] (Wo rk) 09/02/2022 Procedure visit Dermatology Jace Lynn MD [facility] DR JENNY BILLY[place]DERMAT [place], [place] [address] (Wo rk) 09/05/2022 Appointment Cardiology Trinity Reid MD [facility] ER CARDIOLOGY [place], [place] [address] (Wo rk) 09/05/2022 Office Visit Cardiology Trinity Reid MD [facility] ER CARDIOLOGY [place], [place] [address] (Wo rk) documented as of [...] Organization Address City/State/ZIP Code Phon e Number [place], [place] documented in this encounter Visit Diagnoses Not on filedocumented in this encounter Care Teams Sports Reporter Relationship Specialty Start Date End Date Bobby Das MD PCP - General 10/02/[address] [place] [address] [place], [place] [phone] documented as of this encounter
--- OUTSIDE RECORDS SUMMARY | 2022-06-28 11:08 | XMS_ITS | Encounter Summary ---
:1940 Author Organization [facility] Address [facility] [place] [address] Care Team Providers Name Role Phone Bobby Das MD Primary Care Provider Reason for Visit - Closed Specialty Diagnoses / Procedures Referred By Contact Refer red To Contact Procedures Bobby Das MD Film Library- Storage Only [facility] [place] [address] Referral ID Status Reason Start Date Expiration Date Visits Requ ested Visits Authorized [id number] Closed 02/23/2021 02/23/2022 1 1 Encounter Details Date Type Department Care Team Description 03/16/2020 Ancillary Procedure Radiology Library at Bobby Almaguer MD [address] [address] [phone] (Wo bob) Social History Tobacco Use Types [...] 07/02/2022 Office Visit Vascular Surgery Jing Ghosh, LODE MINER BLASTING [facility] DR VASCULAR SURGERY [place], [place] [address] (Wo rk) 09/02/2022 Clinical Support Dermatology Thai Lynn MD [facility] DR JENNY BILLY-DERMAT [place], [place] [address] (Wo rk) 09/02/2022 Procedure visit Dermatology Jace Lynn MD [facility] DR JENNY BLILY-DERMAT [place], [place] [address] (Wo rk) 09/05/2022 Appointment Cardiology Trinity Reid MD [facility] CARDIOLOGY [place], [place] [address] (Wo rk) 09/05/2022 Office Visit Cardiology Trinity Reid MD [facility] CARDIOLOGY [place], [place] [address] (Wo rk) documented as of [...] Organization Address City/State/ZIP Code Phon e Number [place], [place] documented in this encounter Visit Diagnoses Not on filedocumented in this encounter Care Teams Trial Management Associate Relationship Specialty Start Date End Date Bobby Das MD PCP - General 10/02/[address] [place] [address] [place] [phone] documented as of this encounter
--- OUTSIDE RECORDS SUMMARY | 2022-06-28 11:08 | XMS_ITS | Encounter Summary ---
:1940 Author Organization [facility] [place] [address] Care Team Providers Name Role Phone Bobby Das MD Primary Care Provider Reason for Referral Diagnostic Test (Routine) - Closed Specialty Diagnoses / Procedures Referred By Contact Refer red To Contact Radiology Diagnoses Compression fracture of T9 vertebra, initial encounter Alphonso Esquivel DO [facility] Interventionl Rad Procedures IR Vertebroplasty Thoracic [facility] [place] [address] [place] [address] Referral ID Status Reason Start Date Expiration Date Visits V isits Requested Authorized [id number] Closed Specialty 10/13/2020 04/13/2022 1 1 Service Requested Reason for Visit Diagnostic Test (Routine) - Closed Specialty Diagnoses / Procedures Referred By Contact Refer red To Contact Radiology Diagnoses Compression fracture of T9 vertebra, initial encounter lAphonso Esquivel DO [facility] Interventionl Rad Procedures IR Vertebroplasty Thoracic [facility] [place] [address] [place] [address] Referral ID Status Reason Start Date Expiration Date Visits V isits Requested Authorized [id number] Closed Specialty 10/13/2020 04/13/2022 1 1 Service Requested Encounter Details Date Type Department Care Team Description 10/25/2020 Hospital Encounter Radiology at [facility] Esquivel, Alphonso R, Compression fracture [facility] DO of T9 vertebra, Drive [facility] initial encounter [place], [place] CENTER [address] DIAGNOSTIC [phone] [place] [address] Social History Tobacco Use Types Packs/Day Years [...] Vargas RN - 10/25/2020 9:13 AM EST [facility] Discharge Instructions for Vertebroplasty Your vertebroplasty [...] is during regular office hours, please call [phone]. If it is after regular office hours, oron weekends or holidays, please call [phone] and ask to speak to the Seismograph Helper on callfor Interventional Radiology. XXX You have [...] of : 1940 AGE: 80 y.o. Address: [address] [place] [address] (home) Mobile: No relevant phone numbers on file. Referring Provider: Alphonso Esquivel REASON FOR VISIT: Order Questions Answers Where will study be performed? [facility] Radiology [120] Is the patient [...] 07/02/2022 Office Visit Vascular Surgery Jing Ghosh, DYE AND CHEMICAL COORDINATOR [facility] VASCULAR SURGERY [place], [place] [address] (Wo rk) 09/02/2022 Clinical Support Dermatology Thai Lynn MD [facility] DR JENNY BILLY-DERMAT [place], [place] [address] (Wo rk) 09/02/2022 Procedure visit Dermatology Jace Lynn MD [facility] DR JENNY BILLY-DERMAT [place], [place] [address] (Wo rk) 09/05/2022 Appointment Cardiology Trinity Reid MD [facility] CARDIOLOGY [place], [place] [address] (Wo rk) 09/05/2022 Office Visit Cardiology Trinity Reid MD [facility] CARDIOLOGY [place], [place] [address] (Wo rk) documented as of [...] made and a 13g a introducer needle (Pensqr) was advanced through the right pedicle and t o the ??T9 vertebral body during an intermittent fluoroscopic guidance. The Pensqr biopsy cannula was advanced through the introducer [...] was made and a 13ga introducer needle ([employer]) was advanced through the left pedicle and [...] made and a 13g a introducer needle (Pensqr) was advanced through the right pedicle and t o the T9 vertebral body during an intermittent fluoroscopic guidance. The Pensqr biopsy cannula was advanced through the introducer [...] was made and a 13ga introducer needle ([employer]) was advanced through the left pedicle and [...] number below. Electronically signed by: Matt Valverde [facility] ([phone]), at 10/25/2020 11:02 AM Alphonso Esquivel DO IMG IR ORDERABLES Surgical Pathology Report (10/25/2020 8:26 AM EST) Component Value Ref Test Analysis Performed At [facility] Method Time Signature Surgical [id number] ? Location: 3ZV [facility] Pathology [place] Report The signing pathologist has (i) examined [...] Bone & Soft Tissue Pathologist Performed at: ??[facility] Dept. of Pathology, [place], [place] DISCUSSION I see no neoplastic process [...] Organization Address City/State/[place] [address] Specimen to Pathology (10/25/2020 8:26 AM EST) Specimen Anatomical Collection Method Collection Time Receive d Time (Source) Location / / Volume Laterality AP Specimen 10/25/2020 8:26 AM 0 8:26 EST AM EST Narrative [facility] LAB[facility] - 10/25/2020 8:26 AM EST Specimen requisition ordered. ??Separate Pathology report to follow Alphnoso Elle Sierra DO PATHOLOGY/CYTOLOGY ORDERABLE S Performing Organization Address City/State/ZIP Code Phon e Number [place] [id number] HOSPITAL LAB[address]ATORY [address] documented in this encounter [...] Procedure) documented in this encounter Care Teams Starch Cooker Relationship Specialty Start Date End Date Bobby Das MD PCP - General 10/02/[address] [place] [address] [place] [phone] documented as of this encounter
--- OUTSIDE RECORDS SUMMARY | 2022-06-28 11:08 | XMS_ITS | Encounter Summary ---
:1940 Author Organization [facility] [place] [address] Care Team Providers Name Role Phone Bobby Das MD Primary Care Provider Reason for Referral Diagnostic Test (Routine) - Closed Specialty Diagnoses / Procedures Referred By Contact Refer red To Contact Radiology Diagnoses Compression fracture of T9 vertebra, initial encounter Alphonso Esquivel, DO [facility] Interventionl Rad Procedures IR Vertebroplasty Thoracic Single Level [facility] DIAGNOSTIC [place] [address] [place] [address] Referral ID Status Reason Start Date Expiration Date Visits V isits Requested Authorized [id number] Closed Specialty 10/13/2020 04/13/2022 1 1 Service Requested Encounter Details Date Type Department Care Team Description 10/13/2020 Orders Only Radiology at [facility] Alphonso Esquivel, Compression fracture [facility] DO of T9 vertebra, Drive [facility] [place] [address] DIAGNOSTIC RADIOLOGY [place], [place] [address] Social History Tobacco Use Types [...] Vascular Surgery Jing Ghosh, HIRAL [facility] VASCULAR SURGERY [place], [place] [address] (Wo rk) 09/02/2022 Clinical Support Dermatology Thai Lynn MD [facility] DR JENNY BILLY-DERMAT [place], [place] [address] (Wo rk) 09/02/2022 Procedure visit Dermatology Jace Lynn MD [facility] DR JENNY BILLY-DERMAT [place], [place] [address] (Wo rk) 09/05/2022 Appointment Cardiology Trinity Reid MD [facility] CARDIOLOGY [place], [place] [address] (Wo rk) 09/05/2022 Office Visit Cardiology Trinity Reid MD [facility] CARDIOLOGY [place], [place] [address] (Wo rk) documented as of [...] made and a 13g a introducer needle ([employer]) was advanced through the right pedicle and t o the ??T9 vertebral body during an intermittent fluoroscopic guidance. The [employer] biopsy cannula was advanced through the introducer [...] was made and a 13ga introducer needle ([employer]) was advanced through the left pedicle and [...] the interservice administration of fentanyl and Versed [facility] continuous monitoring of blood pressure, oxygenation and pulse rate. I have personally reviewed the image(s) and the resident's interpretation and agree with the findings, Matt Valverde at 10/25/2020 11:02 AM Thank you for letting us participate in the care of this patient. For questions regarding this report, please contact e number below. ? Electronically signed by: Matt Valverde, [facility] ([phone]), at 10/25/2020 11:02 AM Procedure Note Matt [...] made and a 13g a introducer needle ([employer]) was advanced through the right pedicle and t o the T9 vertebral body during an intermittent fluoroscopic guidance. The [employer] biopsy cannula was advanced through the introducer [...] was made and a 13ga introducer needle ([employer]) was advanced through the left pedicle and [...] Valverde [facility] ([phone]), at 10/25/2020 11:02 AM Alphonso Esquivel DO IMG IR ORDERABLES Prothrombin Time (10/25/2020 6:35 AM EST) athologist Signature PT 10.8 9.4 - 12.5 [facility] LABORATORY INR 1.0 [facility] [...] Address City/State/Z[place] [address] Platelet count (10/25/2020 6:35 AM EST) athologist Signature Platelets 192 145 - 357 [facility] x10(3)/[facility] LABORATORY Plat Immature 2.6 0.0 - 7.4 ILDA HAGEN % % [facility] LABORATORY Comment: Limitation of the Immature Platelet Frac tion (IPF)-May be less reliable when the platelet count is less than 30n186/u L due to statistical imprecision. The IPF [...] in a decreased state of production. References: [employer] The Clinical Value of the Immature Platelet Fraction (IPF) in Cell Recovery Document Number 10-1143 04/2011 [employer] The Role of the Imm ature [...] Address City/State/Z[place] [address] documented in this encounter Visit Diagnoses Diagnosis Compression fracture of T9 vertebra, ini tial encounter Compression fracture of T9 vertebra, ini tial encounter documented in this encounter Care Teams Pump Runner Relationship Specialty Start Date End Date Bobby Das MD PCP - General 10/02/[address] [place] [address] [place] [address] documented as of this encounter
--- OUTSIDE RECORDS SUMMARY | 2022-06-28 11:08 | XMS_ITS | Encounter Summary ---
:1940 Author Organization [place] [place] [address] Care Team Providers Name Role Phone Bobby Das MD Primary Care Provider Encounter Details Date Type Department Care Team Description 09/22/2020 Telephone Pain and Spine Leon reid at [facility] Negra Butt, [place] [phone] Social History Tobacco Use Types Packs/Day [...] 07/02/2022 Office Visit Vascular Surgery Jing Ghosh, TELEPHONE BETTING CLERK [facility] VASCULAR SURGERY [place], [place] [address] (Wo rk) 09/02/2022 Clinical Support Dermatology Thai Lynn MD [facility] ER DR JENNY BILLY-DERMAT [place], [place] [address] (Wo rk) 09/02/2022 Procedure visit Dermatology Jace Lynn MD [facility] DR JENNY BILLY-DERMAT [place], [place] [address] (Wo rk) 09/05/2022 Appointment Cardiology Trinity Reid MD [facility] CARDIOLOGY [place], [place] [address] (Wo rk) 09/05/2022 Office Visit Cardiology Trinity Reid MD [facility] CARDIOLOGY [place], [place] [address] (Wo rk) documented as of this encounter Visit Diagnoses Not on filedocumented in this encounter Care Teams Supervisory Examiner Relationship Specialty Start Date End Date Bobby Das MD PCP - General 10/02/[address] [place] [address] [place] [phone] documented as of this encounter
--- OUTSIDE RECORDS SUMMARY | 2022-06-28 11:08 | XMS_ITS | Encounter Summary ---
:1940 Author Organization [facility] [place] [address] Care Team Providers Name Role Phone Bobby Das MD Primary Care Provider Encounter Details Date Type Department Care Team Description 08/06/2020 Ancillary Procedure Radiology at [facility] LiseAmy madrigal [address] [place] [phone] [address] [phone] NEUROSURGERY-N [place], [place] [address] Social History Tobacco Use Types [...] 07/02/2022 Office Visit Vascular Surgery Jing Ghosh, CERTIFIED MEDICAL ASST [facility] ER VASCULAR SURGERY [place], [place] [address] (Wo rk) 09/02/2022 Clinical Support Dermatology Thai Lynn MD [facility] ER DR JENNY BILLY-DERMAT [place], [place] [address] (Wo rk) 09/02/2022 Procedure visit Dermatology Jace Lynn MD [facility] [address] JENNY [place], [place] [address] (Wo rk) 09/05/2022 Appointment Cardiology Trinity Reid MD [facility] ER [place]Y [place], [place] [address] (Wo rk) 09/05/2022 Office Visit Cardiology Trinity Reid MD [facility] ER CARDIOLOGY [place], [place] [address] (Wo rk) documented as of [...] Address City/State/ZIP Code Phon e Number [place], [place] documented in this encounter Visit Diagnoses Not on filedocumented in this encounter Care Teams Central Office Supervisor Relationship Specialty Start Date End Date Bobby Das MD PCP - General 10/02/[address] [place] [address] [place] [phone] documented as of this encounter
--- OUTSIDE RECORDS SUMMARY | 2022-06-28 11:08 | XMS_ITS | Encounter Summary ---
:1940 Author Organization [facility] Address [facility] [place] [address] Care Team Providers Name Role Phone Bobby Das MD Primary Care Provider Encounter Details Date Type Department Care Team Description 10/25/2020 Laboratory Appointment Lab at [facility] Compression fracture [facility], [place] [phone] Social History Tobacco Use Types Packs/Day Years [...] Vascular Surgery Jing Ghosh APRN [facility] VASCULAR SURGERY [place], [place] [address] (Rebekah rojas) 09/02/2022 Clinical Support Dermatology Thai Lynn MD [facility] DR JENNY BILLY-DERMAT [place], [place] [address] (Rebekah rojas) 09/02/2022 Procedure visit Dermatology Jace Lynn MD [facility] DR JENNY BILLY-DERMAT [place], [place] [address] (Rebekah rojas) 09/05/2022 Appointment Cardiology Trinity Reid MD [facility] CARDIOLOGY [place], [place] [address] (Wo rk) 09/05/2022 Office Visit Cardiology Trinity Reid MD [facility] ER CARDIOLOGY [place] [address] (Wo rk) documented as of this [...] athologist Signature Platelets 192 145 - 357 [facility] x10(3)/[facility] LABORATORY Plat Immature 2.6 0.0 - 7.4 ILDA XIAO % % [facility] LABORATORY Comment: Limitation of the Immature Platelet Frac tion (IPF)-May be less reliable when the platelet count is less than 99j683/u L due to statistical imprecision. The IPF [...] in a decreased state of production. References: [employer] The Clinical Value of the Immature Platelet Fraction (IPF) in Cell Recovery Document Number [id number] 04/2011 [employer] The Role of the Imm ature Platelet Fraction (IPF) in the Differential Diagnosis of Thrombocytopen ia, Document [id number] V003/21/14 P003/23 Specimen Anatomical Collection Method Collection Time Receive d Time (Source) Location / / Volume Laterality Blood specimen 10/25/2020 6:35 AM 020 6:52 (specimen) EST AM EST Resulting Agency Comment Spec In Lab Alphonso Esquivel DO HEMATOLOGY ORDERABLES Performing Organization Address City/[facility]/ZIP [facility] [place] [address] Prothrombin Time (10/25/2020 6:35 AM EST) athologist Signature PT 10.8 9.4 - 12.5 [facility] LABORATORY INR 1.[address] [facility] LABORATORY Comment: An INR <2.0 indicates [...] Esquivel DO HEMATOLOGY ORDERABLES Performing Organization Address City/[facility]/ZIP Code [facility] [place] [address] documented in this encounter Visit Diagnoses Diagnosis Compression fracture of T9 vertebra, ini tial encounter documented in this encounter Care Teams Cash On Delivery Clerk Relationship Specialty Start Date End Date Bobby Das MD PCP - General 10/02/[address] [place] [address] [place] [phone] documented as of this encounter
--- OUTSIDE RECORDS SUMMARY | 2022-06-28 11:08 | XMS_ITS | Encounter Summary ---
:1940 Author Organization [facility] [place] [address] Care Team Providers Name Role Phone Bobby Das MD Primary Care Provider Encounter Details Date Type Department Care Team Description 06/16/2019 Ancillary Procedure Radiology Library at Bobby Almaguer MD [facility] [address] [place] [phone] (Wo rk) Social History Tobacco Use Types Packs/Day Years Used Date Current Some Day Smoker 1 50 Smokeless Tobacco: Never Used Sex Assigned at Date Recorded Not on file documented as of this encounter Plan of Treatment Upcoming Encounters Date Type Specialty Care Team Description 07/02/2022 Office Visit Vascular Surgery Jing Ghosh APRN [facility] DR VASCULAR SURGERY [place], [place] [address] (Wo rk) 09/02/2022 Clinical Support Dermatology Thai Lynn MD [facility] ER DR JENNY BILLY-DERMAT [place], [place] [address] (Wo rk) 09/02/2022 Procedure visit Dermatology Jace Lynn MD [facility] DR JENNY BILLY-DERMAT [place], [place] [address] (Wo rk) 09/05/2022 Appointment Cardiology Trinity Reid MD [facility] ER CARDIOLOGY [place], [place] [address] (Wo rk) 09/05/2022 Office Visit Cardiology Trinity Reid MD [facility] ER CARDIOLOGY [place], [place] [address] (Wo rk) documented as of [...] Organization Address City/State/ZIP Code Phon e Number [place], [place] documented in this encounter Visit Diagnoses Not on filedocumented in this encounter Care Teams Construction Management Assistant Relationship Specialty Start Date End Date Bobby Das MD PCP - General 10/02/[address] [place] [address] [place] [phone] documented as of this encounter
--- OUTSIDE RECORDS SUMMARY | 2022-06-28 11:08 | XMS_ITS | Encounter Summary ---
:1940 [place] [address] Care Team Providers Name Role Phone Bobby Das MD Primary Care Provider Encounter Details Date Type Department Care Team Description 07/20/2019 Laboratory Lab 3L Ilda Gastrointestina l Appointment [facility] hemorrhag e, unspecified Hospital gastrointestinal [facility] [place] [phone] Social History Tobacco Use Types Packs/Day Years [...] Office Visit Vascular Surgery Jing Ghosh APRN [facility] VASCULAR SURGERY [place], [place] [address] (Wo rk) 09/02/2022 Clinical Support Dermatology Thai Lynn MD [facility] DR JENNY BILLY-DERMAT [place], [place] [address] (Wo rk) 09/02/2022 Procedure visit Dermatology Jace Lynn MD [facility] DR JENNY BILLY-DERMAT [place], [place] [address] (Rebekah rojas) 09/05/2022 Appointment Cardiology Trinity Reid MD [facility] CARDIOLOGY [place], [place] [address] (Wo rk) 09/05/2022 Office Visit Cardiology Trinity Reid MD [facility] ER CARDIOLOGY [place], [place] [address] (Wo rk) documented as of [...] Time Signature WBC 6.0 4.0 - 9.5 [facility] XIAO x10(3)/[facility] LABORATORY RBC 4.50 (L) 4.58 - ILDA XIAO 5.54 [facility] x10(6)/[facility] LABORATORY Hemoglobin 14.8 13.7 - [employer] 16.5 gm/dL [facility] LABORATORY Hematocrit 43.9 40.5 - [employer] 48.5 % [facility] LABORATORY MCV 97.6 (H) 82.9 - ILDA XIAO 93.1 [facility] LABORATORY MCH 32.9 (H) 27.5 - ILDA XIAO 32.1 pg [facility] LABORATORY MCHC 33.7 32.0 - [employer] 35.7 gm/dL [facility] LABORATORY Platelets 164 145 - 357 ILDA [employer] x10(3)/[facility] LABORATORY RDWSD 49.3 (H) 36.0 - [employer] 45.0 [facility] LABORATORY RDWCV 13.6 11.4 - ILDA XIAO 13.8 % [facility] LABORATORY MPV 10.0 7.6 - 12.9 ILDA XIAO [facility] LABORATORY nRBC % Auto 0.0 % [facility] LABORATORY nRBC Abs Auto 0.000 0.000 - [facility] 0.000 [facility] x10(3)/[facility] LABORATORY Specimen Anatomical Collection Method Collection Time Receive d Time (Source) Location / / Volume Laterality Blood specimen 07/20/2019 8:18 AM 019 8:21 (specimen) EDT AM EDT Resulting Agency Comment Spec In Lab Bobby Marshall MD HEMATOLOGY ORDERABLES Performing Organization Address City/[facility] [address]/ZIP Code Phon e Number [place] [phone] HOSPITAL LAB[address]ORY [address] Prothrombin Time (07/20/2019 8:18 AM EDT) P athologist Signature PT 11.3 9.4 - 12.5 [facility] LABORATORY INR 1.0 [facility] LABORATORY [...] Marshall MD HEMATOLOGY ORDERABLES Performing Organization Address City/[facility] [address]/ZIP Code Phon e Number [place] [phone] HOSPITAL LAB[address]ORY [address] documented in this encounter Visit Diagnoses Diagnosis Gastrointestinal hemorrhage, unspecified gastrointestinal hemorrhage type documented in this encounter Care Teams Senior Statistical Programmer Relationship Specialty Start Date End Date Bobby Das MD PCP - General 10/02/[address] [place] [address] [place] [phone] documented as of this encounter
--- OUTSIDE RECORDS SUMMARY | 2022-06-28 11:08 | XMS_ITS | Encounter Summary ---
:1940 [place] [address] Care Team Providers Name Role Phone Bobby Das MD Primary Care Provider Reason for Visit Reason Comments Left Leg Pain Auth/Cert Specialty Diagnoses / Procedures Referred By Contact Refer red To Contact Diagnoses Limb ischemia LLE thrombus Fito Summers MD [facility] [place] [address] Referral ID Status Reason Start Date Expiration Date Visits Requ ested Visits Authorized [id number] 1 1 Encounter Details Date Type Department Care Team Description 05/15/2022 Surgery Main Operating Room Savana Summers se, MD [facility], [facility] FEMOROPOSANG, [facility] VASCULAR SURG JULIAN [place] [address] [place] ([place] [address] 19.48) [phone] Social History Tobacco Use Types Packs/Day Years [...] onset Afib who presents in transfer from [facility] with acute limb ischemia of [...] emergently went to the OR for L VA UNDERWRITER transverse arteriotomy and primary repair, thromboembolectomy of L SFA/PFA/VA UNDERWRITER, reperfusion venous drainage for 250 cc, and [...] Discharge Condition: Good Discharge to: Home with [facility] [address] [address] Future Appointments and Orders Future Appointments and Orders Future Appointments Provider Department Dept Phone 05/23/2022 10:30 AM Loretta Cohen MD Dermatology at [facility] Arrive at: Apartment Maintenance [address] [place] [address] 06/07/2022 1:30 PM Gail Rae APRN Vascular Surgery at [facility] Arrive at: Apartment Maintenance Area [phone] 06/13/2022 7:30 AM Edson Lagos [place] Vascular Lab at [facility] Arrive at: Apartment Maintenance Area [phone] 06/13/2022 8:00 AM Fito Summers MD Vascular Surgery at [facility] Arrive at: Apartment Maintenance Area 3V [phone] 06/13/2022 10:00 AM Alan Reid MD Cardiology at [facility] Arrive at: Apartment Maintenance Area 4A [phone] Future Orders Complete By Expires Ziopatch 48 Hrs-15 Days [[id number] CPT(R)] 05/21/2022 11/20/2022 Process Instructions: Scheduling Instructions: Comments: Questions: Does the patient have a pacemaker? If yes provide HI/LO settings: Apply for 7 or 14 days?: 7 Where will study be performed?: [facility] Clinics JOSSELYN, legs, multiple levels [VAS8 Custom] 06/21/2022 (Approximate) 12/21/2022 Process Instructions: There is no in-house vascular director labor standards available on weeknights (5pm-8am), weekends, or holidays. IF THIS IS A REQUEST FOR AN EMERGENT STUDY DURING THOSE HOURS, please have the senior provider responsible for the patient page the Vascular Surgery Fellow/Senior Resident construction project engineer to discuss options. Scheduling Instructions: Questions: Indication for study/signs & symptoms: ALI s/p L fem cutdown with thromboembolectomy Question to be answered: Perfusion to feet? Please check toe pressure Preferred location?: [facility] Referral to Cardiology [REF12 Custom] As directed [...] Zamora for admission to Home Health. [address] [facility] [address] (home) Date of : 1940 Inpatient DOCUMENTATION FOR VNA SERVICES (INCLUDING THOSE PATIENTS WITH MEDICARE COVERAGE REQUIRING HOME VNA SERVICES AND/OR HOSPICE SERVICES) PATIENT'S LOCATION: Koko Zamora [address] [facility] [place] [address] (home) Cell: No relevant phone numbers on file. Family Readiness Support Assistant's Name: Koko In discussion with the attending physician, it is certified that this patient is under their care and that they, or a Nurse Practitioner,Clinical Nurse specialist or Physician Library Technology Instructor who is working directly with them, had [...] for managing ADL's. HOME HEALTH CARE AGENCY: [facility] [address] [place] [address] Start of care: Within 24 to 48 [...] obtained from this patient'sPCP: Bobby Das MD [address] [place] [address] / [place] [address] All VNA agencies which cover the [...] For any problems or questions please call [phone] For issues on weeknights after 5pm and weekends please call [phone] and ask for the Vascular Fellow construction project engineer. JOSEE Santiago Vascular Surgery 05/21/2022 documented in [...] For any problems or questions please call [phone] For issues on weeknights after 5pm and weekends please call [phone] and ask for the Vascular Fellow construction project engineer. documented in this encounter Medications at Time [...] 04/12/20 21 (FLONASE) 50 mcg/actuation Nare route [place], Suspension daily as needed. fluorouraciL (EFUDEX) 5 [...] onset Afib who presents in transfer from [facility] with acute limb ischemia of [...] status, full code. JOSEE Santiago 05/21/2022 Pager: [phone] PaBrannon gamino, PT - 05/21/2022 10:35 AM [...] plan as stated. Time IN / OUT: 5387-3506 Total Minutes, Physical Therapy: 25 Billing Code: 2 TA Brannon Isaacs DPT Pager: [phone] Physical Therapy Inpatient Rehabilitation Department [place] Jean [...] Intermediate Cardiac Care Unit [facility] Office Visit from 04/17/2021 in Pain and Spine Center at [facility] Weight 79.8 kg (175 lb 14.8 oz) [...] and plan of care per Dr. Mcnamara (fruit inspector). Please refer to her note above for [...] limb ischemia (thromboembolic) and he is a mcc smoker (1/2 ppd, recommend nicotine patch). His [...] to Hosp-Admission (Current) from 05/15/2022 in 4 [facility] Office Visit from 04/17/2021 in Pain and Spine Center at [facility] Weight 79.8 kg (175 lb 14.8 oz) [...] findings andplan of care per Dr. Mcnamara (fruit inspector). Please refer to her note above for [...] a mitral repair in 2000 (not at [facility]) with no CAD at that time. Currently, [...] AF and the first documented HR at [facility] was 125 bpm (presented to an an [...] onset Afib who presents in transfer from [facility] with acute limb ischemia of [...] management following Dottie Hill APRN 05/20/2022 Pager: [phone] Laney Atkins RN - 05/20/2022 1:14 AM EDT Pt Koko transferred to room from [facility]. A&Ox4, oriented to room and call boo. Masimo and telemetry placed. In agreement with assessment as documented this evening by Nuris [place]. No complaints at this time. Pt aware of NPO status and plan for cardiac cath in AM. Urinal provided. Resting comfortably in bed. Nuris Lester RN - 05/20/2022 1:09 AM EDT Pt. Transferred to [facility]. RN accompanied patient to floor and handed off to [facility] RN Dottie Hill APRN - 05/19/2022 10:02 AM EDT Vascular Surgery Progress Note Koko Zamora is a 81 y.o. male with w new onset Afib who presents in transfer from [facility] with acute limb ischemia of [...] management following Dottie Hill APRN 05/19/2022 Pager: [phone] Emily Sauceda RN - 05/19/2022 6:28 AM EDT OUTCOME EVALUATION NOTE: OUTCOME SUMMARY: Patient AOx4, VSS on RA. Afib on tele. HR controlled w/ PRN metop, given x2. Denies CP, SOB, n/v. See flowsheets for NVC. Dressings to LLE CDI, prevena WV to groin intact. Voiding to urinal. LBM ORTHO NURSE, patient stating he will maybe try the [...] adequately without difficulty to bedside urinal. LBM ORTHO NURSE. Up to chair this AM with nursing staff. Worked with PT, tolerated well. Diet changed to regular at 1800.Plan is for cardiac cath on Friday. PLAN MOVING FORWARD: Bleeding precautions Pain management neurovascular checks PT/OT slabber INDIVIDUALIZED FALL PREVENTION INTERVENTIONS: Patient-specific fall risk [...] onset Afib who presents in transfer from [facility] with acute limb ischemia of [...] mL Intravenous BID ??? PHENobarbitaL 0.12 mg/kg/dose (Lodi) Oral BID ??? thiamine 100 mg Oral [...] management following Dottie Hill APRN 05/18/2022 Pager: [phone] Brannon Isaacs, PT - 05/18/2022 10:00 AM [...] IR Biopsy Spine 07/20/2019 Bobby Marshall MD [facility] INTERVENTIONL RAD ??? IR VERTEBROPLASTY LUMBAR MULTIPLE LEVELS 07/20/2019 IR Vertebroplasty Lumbar Multiple Levels 07/20/2019 Bobby Marshall MD [facility] INTERVENTIONL RAD ??? IR VERTEBROPLASTY THORACIC SINGLE LEVEL 10/25/2020 IR Vertebroplasty Thoracic Single Level 10/25/2020 Matt Chisholm MD [facility] INTERVENTIONL RAD ??? PRO EMBLC/THRMBC FEMORAL POPLITEAL AORTO-ILIAC ARTERY Left 05/15/2022 EMBOLECTOMY OR THROMBECTOMY, FEMOROPOPLITEAL, AORTOILIAC ARTERY BY LEG INCISION (WRVU 19.48) performed by Fito Summers MD at [facility] MAIN OR Social History: Pt lives [...] in this evaluation. Time IN / OUT: 9466-3387 Total Minutes, Physical Therapy: 30 Billing Code: Basilio Isaacs, PT Pager: [phone] Physical Therapy Inpatient Rehabilitation Department Emily Sauceda RN - 05/18/2022 4:34 AM EDT OUTCOME EVALUATION NOTE: OUTCOME SUMMARY: Patient AOx4, VSS on 2LNC. Afib on tele. HR above 120, MD aware, PRN IV metop given x1, HR returned to 90's-low 100's. Denies CP, SOB, n/v. See flowsheets for NVC. Dressings to LLE CDI, prevena WV to groin intact. Voiding to urinal. LBM ORTHO NURSE. Heparin gtt therapeutic. Pain controlled. Patient sleeping [...] adequately without difficulty to bedside urinal. LBM ORTHO NURSE. Patient not OOB this shift. Currently NPO awaitingprocedure in lab support technician. PLAN MOVING FORWARD: Bleeding precautions Pain management neurovascular checks PT/OT NPO for lab support technician INDIVIDUALIZED FALL PREVENTION INTERVENTIONS: Patient-specific fall [...] the Emergency Department as a transfer from [facility] with left lower extremity limb ischemia. He went to [facility] and was startedon heparin and transferred to [facility] for evaluation by vascular surgery with [...] he will will be going to the lab support technician for evaluation. Will defer PT eval at present but will see as ordered post cardiac catheritizaton. Social Hx:Pt lives with his Ursula in [place], [place] in a 2 level home in [...] WBAT LLE LISBET HERMAN PT Pager # [phone] In-Pt Rehab Medicine Dottie Hill APRN - 05/17/2022 7:42 AM EDT Vascular Surgery Progress Note Koko Zamora is a 81 y.o. male with w new onset Afib who presents in transfer from [facility] with acute limb ischemia of [...] mL Intravenous BID ??? PHENobarbitaL 0.24 mg/kg/dose (Lodi) Oral BID Followed by ??? [START ON 05/18/2022] PHENobarbitaL 0.12 mg/kg/dose (Lodi) Oral BID ??? thiamine 100 mg Oral [...] management following Dottie Hill APRN 05/17/2022 Pager: [phone] Sary Dos Santos, RN - 05/17/2022 12:16 [...] onset Afib who presents in transfer from [facility] with acute limb ischemia of [...] mL Intravenous BID ??? PHENobarbitaL 0.48 mg/kg/dose (Lodi) Oral BID Followed by ??? [START ON 05/17/2022] PHENobarbitaL 0.24 mg/kg/dose (Lodi) Oral BID Followed by ??? [START ON 05/18/2022] PHENobarbitaL 0.12 mg/kg/dose (Lodi) Oral BID ??? thiamine 100 mg Oral [...] management following Edward Rodríguez MD 05/16/2022 Pager: [phone] Sary Dos Santos RN - 05/16/2022 12:52 [...] 2129 Hand off to DION Ramirez 3 basehor documented in this encounter H&P Notes Kerry [...] onset Afib who presents in transfer from [facility] with acute limb ischemia of [...] IR Biopsy Spine 07/20/2019 Bobby Marshall MD [facility] INTERVENTIONL RAD ??? IR VERTEBROPLASTY LUMBAR MULTIPLE LEVELS 07/20/2019 IR Vertebroplasty Lumbar Multiple Levels 07/20/2019 Bobby Marshall MD [facility] INTERVENTIONL RAD ??? IR VERTEBROPLASTY THORACIC SINGLE LEVEL 10/25/2020 IR Vertebroplasty Thoracic Single Level 10/25/2020 Matt Chisholm MD [facility] INTERVENTIONL RAD Social Hx: Social History [...] Refill ??? fluticasone propionate (FLONASE) 50 mcg/actuation [place], Suspension as needed. ??? fluorouraciL (EFUDEX) 5 [...] and consented. Tim Chicas MD 05/15/2022 Pager: [phone] documented in this encounter ED Notes Lc Harris PA - 05/15/2022 1:20 PM EDT ED Provider Note HPI: Koko Zamora is a 81 y.o. male with history of atrial fibrillation not on anticoagulation, and GI bleeding who presents to the Emergency Department as a transfer from [facility] with left lower extremity limb ischemia. Patient says that the symptoms started roughly 630 this morning when he developed severe pain in his left lower extremity. He went to [facility] and was started on heparin and transferred to [facility] for evaluation by vascular surgery. Review [...] src: Oral SpO2: 94 % O2 Device: PR O2 Flow Rate (L/min): 2 L/min Physical [...] lower extremity earlier today and went to [facility] where it was determined that he had ischemia of the left lower extremity. Vascular surgery [facility] was contacted and he was transferred [...] agrees with the follow- up plan. Lc Harirs PA 05/15/22 1328 Jaylene Esparza RN - 05/15/2022 10:15 AM EDT Pt. Arrived in system by Lc TRIPP and Vascular surgery to write orders before pt. Arrival. Pt. Arrived at [facility] by EMS at 1150, vascular team at [...] in an outpatient cardiac rehabilitation program at [facility] was discussed. Patient agrees to a referral to this program. Timing will depend on his recovery from Vascular surgery. He is going home w/VNA PT. I gave him the brochure for the program at [facility] for future reference. Care Management [...] information for follow-up Home Health & Hospice, [place] [address] [place] [address] Transportation: family or friend will provide Functional [...] Type: *No Product type* / Secondary Insurance: [facility] Prescription Coverage: Yes This plan was formulated with input from patient and team. All are in agreement with plan. RS [facility] with [facility] - for initial IMM. Shawn (Satish) IDON López RN/CM - Cellphone: [phone] Pager: [phone] Covering Service RN/CM Plan of Care - [...] catheterization, transferred in hospital bed accompanied by Oyster Culturist RN, remains on telemetry monitoring. Heparin gtt [...] Type: *No Product type* / Secondary Insurance: [facility] Last Physical Therapy Recommendation: home with home health, home with supervision with None Last Occupational Therapy Recommendation: with Plan for discharge is: Home w/ Services Outpatient Agency/Support Group Needs: None Home Health Services: Registered Nurse, Physical Therapy, Occupational Therapy Agency Referrals: I have met with the patient to: ?? discuss discharge planning needs. ?? provide the [facility], Office of Care Management letter from the Drapery Installer pertaining to rehab referrals. ?? provide a letter describing our affiliations within the [facility] and educate about their right to choose where referrals are sent. ?? provide a list of Home Health Agencies / Durable Medical Equipment vendors which serve their preferred geographic area. ?? provided patient with [facility] Star Quality Rating handout. They have requested referrals to: [facility]. [address] [place] [address] Note routed to a Cyber Instructor who will communicate referrals to facilities and provide any required information. Transportation: family or friend will provide Barriers to discharge: None Plan going forward: Patient is going for a cardiac cath today and plan will come from there. Patientwas recently seen by PT and they recommend VNA at time of discharge. [facility] was routed and pendedat this time. Care Management will continue to follow and assist with discharge planning and coordination of care as indicated. Anticipated Date of Discharge: 05/21/2022 Nataly RICHMOND RN Phone: [phone] Pager: [phone] Plan of Care - Laney Atkins RN [...] were not included. [facility] [place] [address] [address] [address] INPATIENT CARDIOLOGY CONSULT NOTE Date of Consultation: 05/17/2022 Admit Date: 05/15/2022 Hospital Day 2 days Reason for Consult: New afib Active Problems: Active Hospital Problems Diagnosis Limb ischemia Resolved Hospital Problems No resolved problems to display. HPI: Koko Zamora is a 81 y.o. male with a PMHx significant for MVP (s/p MV repair 2000), tobacco use, HLD, who presented to [facility] from OSH on 05/15 with acute limb ischemia of LLE and was found to be in atrial fibrillation. Patient had sudden onset LLE pain on 05/15 and presented to [facility], where he was started on heparin and transferred to [facility]. Upon arrival to [facility], patient was in atrial fib with RVR [...] IR Biopsy Spine 07/20/2019 Bobby Marshall MD [facility] INTERVENTIONL RAD IR VERTEBROPLASTY LUMBAR MULTIPLE LEVELS 07/20/2019 IR Vertebroplasty Lumbar Multiple Levels 07/20/2019 Bobby Marshall MD [facility] INTERVENTIONL RAD IR VERTEBROPLASTY THORACIC SINGLE LEVEL 10/25/2020 IR Vertebroplasty Thoracic Single Level 10/25/2020 Matt Chisholm MD [facility] INTERVENTIONL RAD PRO EMBLC/THRMBC FEMORAL POPLITEAL AORTO-ILIAC ARTERY Left 05/15/2022 EMBOLECTOMY OR THROMBECTOMY, FEMOROPOPLITEAL, AORTOILIAC ARTERY BY LEG INCISION (WRVU 19.48) performed by Fito Summers MD at [facility] MAIN OR Allergies Allergen Reactions Aspirin Other (See Comments) GI bleed Out-Patient Medications: Medications Prior to Admission Medication Sig Dispense Refill Last Dose fluorouraciL (EFUDEX) 5 % Cream daily. CRESTOR 40 mg Tablet Take 40 mg by mouth daily. fluticasone propionate (FLONASE) 50 mcg/actuation [place], Suspension as needed. ascorbic acid, vitamin C, [...] 5 mL Intravenous BID PHENobarbitaL 0.24 mg/kg/dose (Lodi) Oral BID Followed by [START ON 05/18/2022] PHENobarbitaL 0.12 mg/kg/dose (Lodi) Oral BID thiamine 100 mg Oral Daily folic acid 1,000 mcg Oral Daily multivitamin with minerals 1 tablet Oral Daily heparin (porcine) infusion 1,200 Units/hr (05/17/22 9581) Family History: No family history on file. [...] to Hosp-Admission (Current) from 05/15/2022 in 3 [facility] Office Visit from 04/17/2021 in Pain and Spine Center at [facility] Weight 79.8 kg (175 lb 14.8 oz) [...] continue to follow Anne-Marie Larson MD Pager [phone] Clinic: [phone] 05/17/22 6:22 PM Initial Assessments - Ifrah [...] spouse would be surrogate decision maker per [place] surrogate decision making law. (Only good for 180 days) Any patient receiving care at [facility] must abide by [place] law. The hierarchy for surrogate decision making [...] (i) The agent with financial power of assistant attorney general or a conservator appointed in accordance with [...] toilet seat Home Address confirmed as: [address] [place] [address] Social & Family Supports: All names listed below confirmed with patient as Incorrect. Will notify toni to correct. Wifes address is same as and phone is [phone]. Extended Emergency Contact Information Primary Emergency Contact: Ursula Zamora Address: [address] [place] [address] [place] [address] [facility] Relation: Spouse Current Care Provided [...] Type: *No Product type* / Secondary Insurance: [facility] Prescription Coverage: Yes Preferred Pharmacy: [id number] - [place], [place] - [address] [facility] [address] [facility] [address] [facility] - [place], [place] - [address] [facility] [address] [facility] [address] [place] Status: Patient is a : unable to assess Primary Care Provider: Bobby Das MD [phone] Patient/Caregiver Goals of Treatment: to walk again Potential Needs for Transition of Care: none noted per 05/16 IDR Transportation: family will provide Transportation Anticipated: family or friend will provide Concerns to be Addressed: no discharge needs identified Assessment: Patient is admitted to vascular surg service for left lower extremity limb ischemia Plan: Per PT OT recommendations . Has used [facility] in the past. A member of the Care Management team will continue to monitor progress, follow for continuity of care and assist with transition of care planning. Ifrah Bell RN BSN [employer] InspectorYoghurt Maker of Care Management Pager [phone] Brief Op Note - Erin Garza MD - 05/15/2022 5:04 PM EDT Brief Operative Note Patient Name: Koko Zamora : [id number] MR#: [id number] Case Date: 05/15/2022 Surgeon: Surgeon(s) and Role: [...] Garza MD - 05/15/2022 2:08 PM EDT [facility] Operative Note Patient Name: Koko Zamora : [id number] MR#: [id number] Case Date: 05/15/2022 Surgeon: Surgeon(s) and Role: [...] Ghosh, HIRAL [facility] VASCULAR SURGERY [place], [place] [address] (Wo rk) 09/02/2022 Clinical Support Dermatology Thai Lynn MD [facility] [address] EJNNY [place], [place] [address] (Wo rk) 09/02/2022 Procedure visit Dermatology Jace Lynn MD [facility] DR JENNY [place], [place] [address] (Wo rk) 09/05/2022 Appointment Cardiology Trinity Reid MD [facility] CARDIOLOGY [place], [place] [address] (Wo rk) 09/05/2022 Office Visit Cardiology Trinity Reid MD [facility] CARDIOLOGY [place], [place] [address] (Wo rk) Scheduled Referrals Name [...] Component Value Ref Test Analysis Performed At [facility] Range Method Time Signature VB Text Department: Vascular Surgery Lab VASCUBASE Report Patient: [id number] (KOKO ZAMORA) CPT: 40908 Referring Physician: FITO SUMMERS ?? Phone: Indications: s/p L VA UNDERWRITER endart. Diabetes mellitus: no Findings: Right ?Pressure [...] EDT) athologist Signature Heparin UFH 0.42 IU/mL [facility] LABORATORY Comment: Heparin (anti-Xa) levels [...] Organization Address City/State/[place] [address] Differential, Automated (05/21/2022 6:15 AM EDT) athologist Signature Neutrophils % 58.8 % [facility] LAB[facility] Neutr Abs (ANC) 3.97 1.70 - [facility] 6.10 [facility] x10(3)/[facility] LABORATORY Lymphocytes % 25.2 % [facility] Lymphocytes Abs 1.7 0.9 - 3.2 [facility] x10(3)/[facility] LABORATORY Monocytes % 12.9 % [facility] Monocyte Abs 0.9 0.3 - 0.9 [facility] x10(3)/[facility] LABORATORY Eosinophils % 2.1 % [facility] Eosinophils Abs 0.1 0.0 - 0.4 [facility] x10(3)/[facility] LABORATORY Basophils % 0.4 % [facility] Basophils Abs 0.0 0.0 - 0.1 [facility] x10(3)/[facility] LABORATORY Immature Gran % 0.60 % [facility] Comment: Immature granulocytes(IG's)percentage an d absolute count will include metamyelocytes, myelocytes, and promyelo cytes. Blood smears from CBCs yielding IG's will be scanned manually for concor danlara. If this scan disagrees with the automated IG or if promyelocytes are not ed, a manual differential will be performed. Rain Gran Abs 0.04 0.00 - 0.04 x10(3)/[facility] LABORATORY Specimen Anatomical Collection Method Collection Time Receive d Time (Source) Location / / Volume Laterality Blood 05/21/2022 6:15 AM 6:38 EDT AM EDT Resulting Agency Comment Spec In Lab Edward Rodríguez MD HEMATOLOGY ORDERABLES Performing Organization Address City/State/[place] [address] (ABNORMAL) Hemogram (05/21/2022 6:15 AM EDT) [facility] gist Method Time Signature WBC 6.8 4.0 - 9.5 [facility] x10(3)/[facility] LABORATORY RBC 3.59 (L) 4.58 - [facility] 5.54 [facility] x10(6)/[facility] LABORATORY Hemoglobin 11.8 (L) 13.7 - [facility]5 g/dL [facility] LABORATORY Hematocrit 34.5 (L) 40.5 - [facility] 48.5 % [facility] LABORATORY MCV 96.1 (H) 82.9 - [facility] 93.1 [facility] LABORATORY MCH 32.9 (H) 27.5 - [facility] 32.[address] [facility] LABORATORY MCHC 34.2 32.0 - [facility] 35.7 g/dL [facility] LABORATORY Platelets 198 145 - 357 [facility] x10(3)/[facility] LABORATORY RDWSD 44.9 36.0 - [facility] 45.0 [facility] LABORATORY RDWCV 12.6 11.4 - [facility] 13.8 % [facility] LABORATORY MPV 10.0 7.6 - 12.9 [facility] LABORATORY nRBC % Auto 0.3 % [facility] LABORATORY nRBC Abs Auto 0.020 (H) 0.000 - [facility] 0.000 [facility] x10(3)/[facility] LABORATORY Specimen Anatomical Collection Method Collection Time Receive d Time (Source) Location / / Volume Laterality Blood 05/21/2022 6:15 AM 6:38 EDT AM EDT Resulting Agency Comment Spec In Lab Edward Rodríguez MD HEMATOLOGY ORDERABLES Performing Organization Address City/[facility]/ZIP [place] [address] EKG 12 Lead (05/20/2022 7:04 PM EDT) Component Value Ref Range Test Analysis Performed Pathologis t Method Time At Signature Ventricular rate 101 BPM MUSE SYSTEM QRS Duration 116 ms MUSE SYSTEM Q-T Interval 378 ms MUSE SYSTEM QTC Calculated 490 ms MUSE SYSTEM (Bezet) Calculated R [place] -53 degrees MUSE SYSTEM Calculated T [place] 101 degrees MUSE SYSTEM INTERPRETATION Atrial fibrillation [...] SYSTEM - 05/20/2022 7:09 PM ED T ?[facility] ? Cardiac Cathete rization/Intervention Report ? Patient Name: Koko Zamora. ? Procedure Date: 05/20/2022 ? A #: [id number] ? Primary Physician: Abundio Servin ? Case #: [id number] ? File Name: [id number] ? Catheterization Order Number: [id number] ? [facility] ? Final Report [place] ? Patient Name: ? Koko Sullivan. Klarissa uson ? ID#: ?[id number] ? : ?1940 ? Procedure Date: ? [...] procedure was Urgent. The indication for ?the lab support technician visit is cardiomyo nita. Chest pain [...] ?3.5 guiding catheter and a 3.5 [address] [facility] [place] [address] ??20 Mhz. ??Imaging ?was successful. ??Image [...] premounted 2. 75 x 30 mm Rudy Calcium (MAPARO) was deployed ? with a maximum inflation [...] require ?modification of this regimen. C onsult [facility] Interventional Cardiology for ?questions. ?The 1 year [...] 123 65 - 199 [facility] [place] mg/dL [facility] LABORATORY Comment: Supplemental ranges: <140 mg/dL before meals <180 mg/dL all other times of the day Specimen Anatomical Collection Method Collection Time Receive d Time (Source) Location / / Volume Laterality Blood 05/20/2022 5:42 PM 2 5:42 EDT PM EDT Fito Summers MD POINT OF CARE TEST ORDERABLE S Performing Organization Address City/State/ZIP [place] [address] (ABNORMAL) BMP w/fasting Glucose (05/20/2022 10:50 AM EDT) P athologist Signature Glucose 152 (H) 65 - 99 [facility] Fasting mg/dL [facility] LABORATORY Comment: ?Fasting* Glucose Interpretive C [...] of Diabetes Mellitus, Position Statement from the [place] [employer]. ??Diabete s Care, Volume 33, Supplement 1, Nov 2009 BUN 11 10 - 20 mg/dL [facility] LABORATORY Creatinine 0.63 (L) 0.80 - 1.50 mg/dL [facility] LABORATORY Sodium 137 135 - [...] estions. Chloride 103 98 - 107 mmol/L [facility] LABORATORY CO2 24 22 - 31 mmol/L [facility] LABORATORY Anion Gap 10 5 - 15 mmol/L [facility] LABORATORY Calcium 8.7 8.5 - 10.5 mg/dL [facility] LABORATORY Estimated GFR 97 >=60 mL/min/1.73 m?? [facility] LABORATORY Comment: This patient's estimated GFR [...] Summers MD CHEMISTRY ORDERABLES Performing Organization Address City/[facility]/[place] [address] Heparin (unfractionated) Level (05/20/2022 5:02 AM EDT) P athologist Signature Heparin UFH 0.57 IU/mL [facility] LABORATORY Comment: Heparin (anti-Xa) levels [...] Summers MD HEMATOLOGY ORDERABLES Performing Organization Address City/[facility]/[place] [address] (ABNORMAL) Differential, Automated (05/20/2022 5:02 AM EDT) Patholo gist Method Time Signature Neutrophils % 58.1 % [facility] LABORATORY Neutr Abs (ANC) 4.52 1.70 - [facility] 6.10 [facility] x10(3)/[facility] LABORATORY Lymphocytes % 24.1 % [facility] LABORATORY Lymphocytes Abs 1.9 0.9 - 3.2 [facility] x10(3)/[facility] LABORATORY Monocytes % 13.8 % [facility] LABORATORY Monocyte Abs 1.1 (H) 0.3 - 0.9 [facility] x10(3)/[facility] LABORATORY Eosinophils % 2.6 % [facility] LABORATORY Eosinophils Abs 0.2 0.0 - 0.4 [facility] x10(3)/[facility] LABORATORY Basophils % 0.8 % [facility] LABORATORY Basophils Abs 0.1 0.0 - 0.1 [facility] x10(3)/[facility] LABORATORY Immature Gran % 0.60 % [facility] LABORATORY Comment: Immature granulocytes(IG's)percentage an d absolute count will include metamyelocytes, myelocytes, and promyelo cytes. Blood smears from CBCs yielding IG's will be scanned manually for concor dance. If this scan disagrees with the automated IG or if promyelocytes are not ed, a manual differential will be performed. Rain Gran Abs 0.05 (H) 0.00 - 0.04 x10(3)/[facility] LABORATORY Specimen Anatomical Collection Method Collection Time Receive d Time (Source) Location / / Volume Laterality Blood 05/20/2022 5:02 AM 5:19 EDT AM EDT Resulting Agency Comment Spec In Lab Edward Rodríguez MD HEMATOLOGY ORDERABLES Performing Organization Address City/State/Z[place] [address] (ABNORMAL) Hemogram (05/20/2022 5:02 AM EDT) Analysis Performed At Patho logist Time Signature WBC 7.8 4.0 - 9.5 [facility] x10(3)/[facility] LABORATORY RBC 3.53 (L) 4.58 - [facility] 5.54 [facility] x10(6)/[facility] LABORATORY Hemoglobin 11.4 (L) 13.7 - [facility]/dL [facility] LABORATORY Hematocrit 34.3 (L) 40.5 - [facility] 48.5 % [facility] LABORATORY MCV 97.2 (H) 82.9 - [facility] 93.[address] [facility] LABORATORY MCH 32.3 (H) 27.5 - [facility] 32.[address] [facility] LABORATORY MCHC 33.2 32.0 - [facility] 35.7 g/dL [facility] LABORATORY Platelets 181 145 - 357 [facility] x10(3)/[facility] LABORATORY RDWSD 46.4 (H) 36.0 - [facility]AY[facility] 45.0 [facility] LABORATORY RDWCV 13.0 11.4 - [facility] 13.8 % [facility] LABORATORY MPV 10.4 7.6 - 12.9 [facility] LABORATORY nRBC % Auto 0.0 % [facility] LABORATORY nRBC Abs Auto 0.000 0.000 - [facility] 0.000 [facility] x10(3)/[facility] LABORATORY Specimen Anatomical Collection Method Collection Time Receive d Time (Source) Location / / Volume Laterality Blood 05/20/2022 5:02 AM 5:19 EDT AM EDT Resulting Agency Comment Spec In Lab Edward Rodríguez MD HEMATOLOGY ORDERABLES Performing Organization Address City/State/Z[place] [address] Heparin (unfractionated) Level (05/19/2022 3:26 AM EDT) P athologist Signature Heparin UFH 0.59 IU/mL [facility] LABORATORY Comment: Heparin (anti-Xa) levels [...] Organization Address City/State/ZIP [place] [address] (ABNORMAL) Differential, Automated (05/19/2022 3:26 AM EDT) [facility] Method Time Signature Neutrophils % 62.1 % [facility] LABORATORY Neutr Abs (ANC) 4.59 1.70 - [facility] 6.10 [facility] x10(3)/[facility] LABORATORY Lymphocytes % 22.1 % [facility] LABORATORY Lymphocytes Abs 1.6 0.9 - 3.2 [facility] x10(3)/[facility] LABORATORY Monocytes % 13.5 % [facility] LABORATORY Monocyte Abs 1.0 (H) 0.3 - 0.9 [facility] x10(3)/[facility] LABORATORY Eosinophils % 1.3 % [facility] LABORATORY Eosinophils Abs 0.1 0.0 - 0.4 [facility] x10(3)/[facility] LABORATORY Basophils % 0.5 % [facility] LABORATORY Basophils Abs 0.0 0.0 - 0.1 [facility] x10(3)/[facility] LABORATORY Immature Gran % 0.50 % [facility] LABORATORY Comment: Immature granulocytes(IG's)percentage an d absolute count will include metamyelocytes, myelocytes, and promyelo cytes. Blood smears from CBCs yielding IG's will be scanned manually for concor dance. If this scan disagrees with the automated IG or if promyelocytes are not ed, a manual differential will be performed. Rain Gran Abs 0.04 0.00 - 0.04 x10(3)/[facility] Y [facility] LABORATORY Specimen Anatomical Collection Method Collection Time Receive d Time (Source) Location / / Volume Laterality Blood 05/19/2022 3:26 AM 2 3:59 EDT AM EDT Resulting Agency Comment Spec In Lab Edward Rodríguez MD HEMATOLOGY ORDERABLES Performing Organization Address City/State/Z[place] [address] (ABNORMAL) Hemogram (05/19/2022 3:26 AM EDT) Analysis Performed At Patho logist Time Signature WBC 7.4 4.0 - 9.5 [facility] x10(3)/[facility] LABORATORY RBC 3.74 (L) 4.58 - [facility] 5.54 [facility] x10(6)/[facility] LABORATORY Hemoglobin 12.1 (L) 13.7 - [facility] 16.5 g/dL [facility] LABORATORY Hematocrit 36.4 (L) 40.5 - [facility] 48.5 % [facility] LABORATORY MCV 97.3 (H) 82.9 - [facility] 93.1 [facility] LABORATORY MCH 32.4 (H) 27.5 - [facility] 32.[address] [facility] LABORATORY MCHC 33.2 32.0 - [facility] 35.7 g/dL [facility] LABORATORY Platelets 168 145 - 357 [facility] x10(3)/[facility] LABORATORY RDWSD 46.9 (H) 36.0 - [facility] 45.0 [facility] LABORATORY RDWCV 13.0 11.4 - [facility] 13.8 % [facility] LABORATORY MPV 10.5 7.6 - 12.9 [facility] LABORATORY nRBC % Auto 0.0 % [facility] LABORATORY nRBC Abs Auto 0.000 0.000 - [facility] 0.000 [facility] x10(3)/[facility] LABORATORY Specimen Anatomical Collection Method Collection Time Receive d Time (Source) Location / / Volume Laterality Blood 05/19/2022 3:26 AM 3:59 EDT AM EDT Resulting Agency Comment Spec In Lab Edward Rodríguez MD HEMATOLOGY ORDERABLES Performing Organization Address City/State/ZIP Code Phon e Number [place] [id number] HOSP[address] LAB[address]ORY Drive TSH (05/18/2022 8:00 PM EDT) P athologist Signature TSH 2.27 0.27 - 4.20 [facility] mcIU/mL [facility] LABORATORY Comment: Reference Interval (mcIU/mL): Females: ??First Trimester: 0.23-3.88 ??Second Trimester: 0.22-3.90 ??Third Trimester: 0.44-4.66 Specimen Anatomical Collection Method Collection Time Receive d Time (Source) Location / / Volume Laterality Blood 05/18/2022 8:00 PM 8:06 EDT PM EDT Resulting Agency Comment Spec In Lab Fito Summers MD CHEMISTRY ORDERABLES Performing Organization Address City/State/ZIP Code Phon e Number [place] [id number]OS[address] LAB[address]ORY Drive (ABNORMAL) Differential, Automated (05/18/2022 3:34 AM EDT) [facility] Method Time Signature Neutrophils % 67.2 % [facility] LABORATORY Neutr Abs (ANC) 5.89 1.70 - [facility] 6.10 [facility] x10(3)/[facility] LABORATORY Lymphocytes % 17.1 % [facility] LABORATORY Lymphocytes Abs 1.5 0.9 - 3.2 [facility] x10(3)/[facility] LABORATORY Monocytes % 13.6 % [facility] LABORATORY Monocyte Abs 1.2 (H) 0.3 - 0.9 [facility] x10(3)/[facility] LABORATORY Eosinophils % 1.0 % [facility] LABORATORY Eosinophils Abs 0.1 0.0 - 0.4 [facility] x10(3)/[facility] LABORATORY Basophils % 0.6 % [facility] LABORATORY Basophils Abs 0.0 0.0 - 0.1 [facility] x10(3)/[facility] LABORATORY Immature Gran % 0.50 % [facility] LABORATORY Comment: Immature granulocytes(IG's)percentage an d absolute count will include metamyelocytes, myelocytes, and promyelo cytes. Blood smears from CBCs yielding IG's will be scanned manually for concor dance. If this scan disagrees with the automated IG or if promyelocytes are not ed, a manual differential will be performed. Rain Gran Abs 0.04 0.00 - 0.04 x10(3)/[facility] LABORATORY Specimen Anatomical Collection Method Collection Time Receive d Time (Source) Location / / Volume Laterality Blood 05/18/2022 3:34 AM 2 3:48 EDT AM EDT Resulting Agency Comment Spec In Lab Edward Rodríguez MD HEMATOLOGY ORDERABLES Performing Organization Address City/State/Z[place] [address] (ABNORMAL) Hemogram (05/18/2022 3:34 AM EDT) Analysis Performed At Patho logist Time Signature WBC 8.8 4.0 - 9.5 [facility] x10(3)/[facility] LABORATORY RBC 3.45 (L) 4.58 - [facility] 5.54 [facility] x10(6)/[facility] LABORATORY Hemoglobin 11.2 (L) 13.7 - [facility]dL [facility] LABORATORY Hematocrit 33.0 (L) 40.5 - [facility] 48.5 % [facility] LABORATORY MCV 95.7 (H) 82.9 - [facility] 93.1 [facility] LABORATORY MCH 32.5 (H) 27.5 - [facility].[address] [facility] LABORATORY MCHC 33.9 32.0 - [facility] 35.7 g/dL [facility] LABORATORY Platelets 130 (L) 145 - 357 [facility] x10(3)/[facility] LABORATORY RDWSD 46.2 (H) 36.0 - [facility] 45.0 [facility] LABORATORY RDWCV 13.2 11.4 - [facility] 13.8 % [facility] LABORATORY MPV 10.8 7.6 - 12.9 [facility] LABORATORY nRBC % Auto 0.0 % [facility] LABORATORY nRBC Abs Auto 0.000 0.000 - [facility] 0.000 [facility] x10(3)/[facility] LABORATORY Specimen Anatomical Collection Method Collection Time Receive d Time (Source) Location / / Volume Laterality Blood 05/18/2022 3:34 AM 2 3:48 EDT AM EDT Resulting Agency Comment Spec In Lab Edward Rodríguez MD HEMATOLOGY ORDERABLES Performing Organization Address City/[facility]/[place] [address] Heparin (unfractionated) Level (05/18/2022 3:34 AM EDT) athologist Signature Heparin UFH 0.59 IU/mL [facility] LABORATORY Comment: Heparin (anti-Xa) levels [...] Summers MD HEMATOLOGY ORDERABLES Performing Organization Address City/[facility]/[place] [address] Magnesium (05/17/2022 3:33 AM EDT) P athologist Signature Magnesium 0.76 0.69 - 1.07 [facility] mmol/L [facility] LABORATORY Specimen Anatomical Collection Method Collection Time Receive d Time (Source) Location / / Volume Laterality Blood Venous Draw / 05/17/2022 3:33 AM 05/17/20 22 4:05 Unknown EDT AM EDT Resulting Agency Comment Spec In Lab Dottie Hill APRN CHEMISTRY ORDERABLES Performing Organization Address City/[facility]/[place] [address] (ABNORMAL) Basic Metabolic Panel (non-fasting) (05/17/2022 3:33 AM EDT) P athologist Signature Glucose Lvl 158 65 - 199 [facility] mg/dL [facility] LABORATORY Comment: Diabetes: >=200 mg/dL plus symp toms BUN 12 10 - 20 mg/dL [facility] LABORATORY Creatinine 0.74 (L) 0.80 - 1.50 mg/dL [facility] LABORATORY Sodium 137 135 - [...] estions. Chloride 102 98 - 107 mmol/L [facility] LABORATORY CO2 25 22 - 31 mmol/L [facility] LABORATORY Anion Gap 10 5 - 15 mmol/L [facility] LABORATORY Calcium 8.4 (L) 8.5 - 10.5 mg/dL [facility] LABORATORY Estimated GFR 92 >=60 mL/min/1.73 m?? [facility] LABORATORY Comment: This patient's estimated GFR [...] Organization Address City/State/ZIP [place] [address] (ABNORMAL) Differential, Automated (05/17/2022 3:33 AM EDT) [facility] Method Time Signature Neutrophils % 65.5 % [facility] LABORATORY Neutr Abs (ANC) 6.84 (H) 1.70 - [facility] 6.10 [facility] x10(3)/[facility] LABORATORY Lymphocytes % 19.7 % [facility] LABORATORY Lymphocytes Abs 2.1 0.9 - 3.2 [facility] x10(3)/[facility] LABORATORY Monocytes % 13.1 % [facility] LABORATORY Monocyte Abs 1.4 (H) 0.3 - 0.9 [facility] x10(3)/[facility] LABORATORY Eosinophils % 0.6 % [facility] LABORATORY Eosinophils Abs 0.1 0.0 - 0.4 [facility] x10(3)/[facility] LABORATORY Basophils % 0.6 % [facility] LABORATORY Basophils Abs 0.1 0.0 - 0.1 [facility] x10(3)/[facility] LABORATORY Immature Gran % 0.50 % [facility] LABORATORY Comment: Immature granulocytes(IG's)percentage an d absolute count will include metamyelocytes, myelocytes, and promyelo cytes. Blood smears from CBCs yielding IG's will be scanned manually for concor dance. If this scan disagrees with the automated IG or if promyelocytes are not ed, a manual differential will be performed. Rain Gran Abs 0.05 (H) 0.00 - 0.04 x10(3)/[facility] LABORATORY Specimen Anatomical Collection Method Collection Time Receive d Time (Source) Location / / Volume Laterality Blood 05/17/2022 3:33 AM 3:53 EDT AM EDT Resulting Agency Comment Spec In Lab Edward Rodríguez MD HEMATOLOGY ORDERABLES Performing Organization Address City/[facility]/[place] [address] (ABNORMAL) Hemogram (05/17/2022 3:33 AM EDT) Analysis Performed At Patho logist Time Signature WBC 10.4 (H) 4.0 - 9.5 [facility] x10(3)/[facility] LABORATORY RBC 3.72 (L) 4.58 - [facility] 5.54 [facility] x10(6)/[facility] LABORATORY Hemoglobin 12.0 (L) 13.7 - [facility]/dL [facility] LABORATORY Hematocrit 36.4 (L) 40.5 - [facility] 48.5 % [facility] LABORATORY MCV 97.8 (H) 82.9 - [facility] 93.1 [facility] LABORATORY MCH 32.3 (H) 27.5 - [facility] [facility] LABORATORY MCHC 33.0 32.0 - [facility] 35.7 g/dL [facility] LABORATORY Platelets 149 145 - 357 [facility] x10(3)/[facility] LABORATORY RDWSD 48.7 (H) 36.0 - [facility] 45.0 [facility] LABORATORY RDWCV 13.5 11.4 - [facility] 13.8 % [facility] LABORATORY MPV 10.6 7.6 - 12.9 [facility] LABORATORY nRBC % Auto 0.0 % [facility] LABORATORY nRBC Abs Auto 0.000 0.000 - [facility] 0.000 [facility] x10(3)/[facility] LABORATORY Specimen Anatomical Collection Method Collection Time Receive d Time (Source) Location / / Volume Laterality Blood 05/17/2022 3:33 AM 3:53 EDT AM EDT Resulting Agency Comment Spec In Lab Edward Rodríguez MD HEMATOLOGY ORDERABLES Performing Organization Address City/State/[place] [address] (ABNORMAL) Urinalysis Microscopic Exam (05/16/2022 11:15 PM EDT) P athologist Signature RBC UA 8 (H) 0 - 3 /HPF [facility] LABORATORY WBC UA 2 0 - 3 /HPF [facility] LABORATORY Specimen Anatomical Collection Method Collection Time Receive d Time (Source) Location / / Volume Laterality Clean Catch 05/16/2022 11:15 05/16/2022 Urine PM EDT 11:30 PM EDT Resulting Agency Comment Spec In Lab Barbie Ashraf MD URINE ORDERABLES Performing Organization Address City/State/Z[place] [address] (ABNORMAL) Urinalysis with reflex Culture (05/16/2022 11:15 PM EDT) [facility] Method Time Signature Glucose UA Negative Negative [facility] mg/dL [facility] LABORATORY Protein UA Negative Negative [facility] mg/dL [facility] LABORATORY Bilirubin UA Negative Negative [facility] mg/dL [facility] LABORATORY Comment: Clinical correlation required for positi ve Urine Bilirubin results as false positive may occur with some drugs and d rug related products. If a false positive is suspected a serum total bili quarles should be considered if clinically indicated. Urobilinogen UA Normal Normal mg/dL [facility] LABORATORY pH UA 6.0 5.0 - 8.0 [facility] LABORATORY Blood UA Small (A) Negative mg/dL [facility] LABORATORY Ketones UA Trace (A) Negative mg/dL [facility] LABORATORY Nitrite UA Negative Negative [facility] LABORATORY Leukocytes UA Negative Negative [facility] LABORATORY Appearance UA Clear Clear [facility] LABORATORY Spec [place] UA 1.021 1.005 - 1.030 [facility] LABORATORY Color UA Yellow Yellow [facility] LABORATORY Culture Reflexed No [facility] LABORATORY Specimen Anatomical Collection Method Collection Time Receive d Time (Source) Location / / Volume Laterality Clean Catch 05/16/2022 11:15 05/16/2022 Urine PM EDT 11:30 PM EDT Resulting Agency Comment Spec In Lab Fito Summers MD URINE ORDERABLES Performing Organization Address City/State/ZIP Code [place] [address] Heparin (unfractionated) Level (05/16/2022 10:59 PM EDT) P athologist Signature Heparin UFH 0.65 IU/mL [facility] LABORATORY Comment: Specimen drawn more [...] Organization Address City/State/[place] [address] XR Chest One View [...] who have questions please contact the health post acute care nurse practitioner that requested your imaging first. ? Electronically signed by: Tiffanie George MD , [facility] ([phone]), at 05/16/2022 9:27 PM Narrative 05/16/2022 9:27 [...] ho have questions please contact the health post acute care nurse practitioner that requested your imaging first. Electronically signed by: Tiffanie George MD , [facility] ([phone]), at 05/16/2022 9:27 PM Fito Summers MD IMG DX ORDERABLES EKG 12 Lead (05/16/2022 8:57 PM EDT) Component Value Ref Range Test Analysis Performed Pathologis t Method Time At Signature Ventricular rate 117 BPM MUSE SYSTEM QRS Duration 112 ms MUSE SYSTEM Q-T Interval 346 ms MUSE SYSTEM QTC Calculated 482 ms MUSE SYSTEM (Bezet) Calculated R [place] -48 degrees MUSE SYSTEM Calculated T [place] 111 degrees MUSE SYSTEM INTERPRETATION Atrial fibrillation [...] EDT) athologist Signature Heparin UFH 0.53 IU/mL [facility] LABORATORY Comment: Heparin (anti-Xa) levels [...] Organization Address City/State/[place] [address] ECHOCARDIOGRAM COMPLETE W CONTRAST (05/16/2022 12:49 PM EDT) athologist Signature EF 28 HEARTLAB SYSTEM Specimen (Source) Anatomical Collection Method Collection Time Re ceived Time Location / / Volume Laterality 05/16/2022 11:22 AM EDT Narrative HEARTLAB SYSTEM - 05/16/2022 1:54 PM EDT ?[facility] ?[address] ? [place] [address] ?Voice: ?Fax: ? Echocardiogram Report Name: KOKO ZAMORA ?Study Date: 05/16/2022 11:22 AM ? Patient Location: 3WST 0303 B : 1940 ? Height: 67.5 in ? Account: [id number] Age: 81 yrs ? Weight: 176 lb Gender: Male ?BSA: 1.9 m2 Ordering Physician: FITO SUMMERS Referring Physician: MALI FLORIAN Performed By: Jolene Bernard RDCS Exam Location: [facility]. Interpretation Summary Left ventricle is mildly [...] and LV systolic dysfunction are new. Procedure Complete-[id number]. Image enhancement Optiso n was used for [...] note might be different from the original. [facility] [address] [place] [address] Voice: Fax: Echocardiogram Report Name: NIURKA KOKO Sullivan Study Date: 05/2022 11:22 AM Patient Location: [address] [place] [address] : 1940 Height: 67.5 in Account: [id number] Age: 81 yrs Weight: 176 lb Gender: Male BSA: 1.9 m2 Ordering Physician: FITO SUMMERS Referring Physician: MALI FLORIAN Performed By: Jolene Bernard RDCS Exam Location: [facility]. Interpretation Summary Left ventricle is mildly [...] and LV systolic dysfunction are new. Procedure Complete-[id number]. Image enhancement Optiso n was used for [...] (ABNORMAL) Differential, Automated (05/16/2022 3:01 AM EDT) [facility] gist Method Time Signature Neutrophils % 78.8 % [facility] LABORATORY Neutr Abs (ANC) 9.11 (H) 1.70 - [facility] 6.10 [facility] x10(3)/[facility] L LABORATORY Lymphocytes % 9.4 % [facility] Lymphocytes Abs 1.1 0.9 - 3.2 [facility] x10(3)/[facility] LABORATORY Monocytes % 10.9 % [facility] Monocyte Abs 1.3 (H) 0.3 - 0.9 [facility] x10(3)/[facility] LABORATORY Eosinophils % 0.0 % [facility] Eosinophils Abs 0.0 0.0 - 0.4 [facility] x10(3)/[facility] LABORATORY Basophils % 0.3 % [facility] Basophils Abs 0.0 0.0 - 0.1 [facility] x10(3)/[facility] LABORATORY Immature Gran % 0.60 % [facility] LABOR[facility]ORY Comment: Immature granulocytes(IG's)percentage an d absolute count will include metamyelocytes, myelocytes, and promyelo cytes. Blood smears from CBCs yielding IG's will be scanned manually for concor dance. If this scan disagrees with the automated IG or if promyelocytes are not ed, a manual differential will be performed. Rain Gran Abs 0.07 (H) 0.00 - 0.04 x10(3)/[facility] LABORATORY Specimen Anatomical Collection Method Collection Time Receive d Time (Source) Location / / Volume Laterality Blood 05/16/2022 3:01 AM 3:36 EDT AM EDT Resulting Agency Comment Spec In Lab Erin Garza MD HEMATOLOGY ORDERABLES Performing Organization Address City/State/[place] [address] (ABNORMAL) Hemogram (05/16/2022 3:01 AM EDT) Analysis Performed At Patho logist Time Signature WBC 11.6 (H) 4.0 - 9.5 [facility] x10(3)/[facility] LABORATORY RBC 3.62 (L) 4.58 - [facility] 5.54 [facility] x10(6)/[facility] LABORATORY Hemoglobin 12.0 (L) 13.7 - [facility] 16.5 g/dL [facility] Hematocrit 35.3 (L) 40.5 - [facility] 48.5 % [facility] LABORATORY MCV 97.5 (H) 82.9 [facility]1 [facility] LABORATORY MCH 33.1 (H) 27.5 - [facility] 32.[address] [facility] LABORATORY MCHC 34.0 32.0 - [facility] 35.7 g/dL [facility] LABORATORY Platelets 151 145 - 357 [facility] x10(3)/[facility] LABORATORY RDWSD 47.6 (H) 36.0 - [facility] 45.0 [facility] LABORATORY RDWCV 13.3 11.4 - [facility] 13.8 % [facility] LABORATORY MPV 10.5 7.6 - 12.9 [facility] nRBC % Auto 0.0 % [facility] LAB[facility] nRBC Abs Auto 0.000 0.000 - [facility] 0.000 [facility] x10(3)/[facility] LABORATORY Specimen Anatomical Collection Method Collection Time Receive d Time (Source) Location / / Volume Laterality Blood 05/16/2022 3:01 AM 2 3:36 EDT AM EDT Resulting Agency Comment Spec In Lab Erin Garza MD HEMATOLOGY ORDERABLES Performing Organization Address City/State/ZIP Code Phon e Number [address] Phosphorus (05/16/2022 3:01 AM EDT) P athologist Signature Phosphorus 3.7 2.5 - 4.5 [facility] mg/dL [facility] LABORATORY Specimen Anatomical Collection Method Collection Time Receive d Time (Source) Location / / Volume Laterality Blood 05/16/2022 3:01 AM 2 3:36 EDT AM EDT Resulting Agency Comment Spec In Lab Fito Summers MD CHEMISTRY ORDERABLES Performing Organization Address City/State/ZIP Code Phon e Number [address] Magnesium (05/16/2022 3:01 AM EDT) P athologist Signature Magnesium 0.77 0.69 - 1.07 [facility] mmol/L [facility] LABORATORY Specimen Anatomical Collection Method Collection Time Receive d Time (Source) Location / / Volume Laterality Blood 05/16/2022 3:01 AM 2 3:36 EDT AM EDT Resulting Agency Comment Spec In Lab Fito Summers MD CHEMISTRY ORDERABLES Performing Organization Address City/State/Z[place] [address] (ABNORMAL) Basic Metabolic Panel (non-fasting) (05/16/2022 3:01 AM EDT) P athologist Signature Glucose Lvl 222 (H) 65 - 199 [facility] mg/dL [facility] LABORATORY Comment: Diabetes: >=200 mg/dL plus symp toms BUN 12 10 - 20 mg/dL [facility] LABORATORY Creatinine 0.66 (L) 0.80 - 1.50 mg/dL [facility] LABORATORY Sodium 138 135 - [...] Chloride 108 (H) 98 - 107 mmol/L [facility] LABORATORY CO2 22 22 - 31 mmol/L [facility] Anion Gap 8 5 - 15 mmol/L [facility] LABORATORY Calcium 8.2 (L) 8.5 - 10.5 mg/dL [facility] LABORATORY Estimated GFR 95 >=60 mL/min/1.73 m?? [facility] LABORATORY Comment: This patient's estimated GFR [...] Organization Address City/State/ZIP [place] [address] (ABNORMAL) BLOOD GAS 2 ARTERIAL (05/15/2022 3:33 PM EDT) Analysis Performed At Patho logist Time Signature pH Art 7.33 (L) 7.35 - [facility] 7.[address] [facility] LABORATORY pCO2 Art 41 35 - 45 [facility] LABORATORY pO2 Art 131 (H) 85 - 104 [facility] LABORATORY HCO3 Art 21.1 20.0 - [facility] 26.0 [facility] mmol/[facility] LABORATORY BE Art -4.8 (L) -3.0 - 3.0 [facility] mmol/L [facility] LABORATORY Hgb Blood Gas 13.4 (L) 13.7 - [facility] 16.5 g/dL [facility] LABORATORY O2HB Art 96.9 94.0 - [facility] 97.0 % [facility] LABORATORY COHB Art 1.4 % [facility] LABORATORY Comment: Nonsmokers: 0.5-1.5% COHB Smokers: Variable, but usually less than 10% Toxic: 20-30% COHB Lethal: Greater than 60% COHB METHB Art 0.3 <=1.5 % [facility] LABORATORY Na Whole Blood 139 135 - 145 mmol/L [facility] K Whole Blood 3.8 3.5 - 5.0 mmol/L [facility] LABORATORY Comment: Please note: Patients with WBC >100,000 may have falsely elevated Potassium levels. Contact the Clinical Chemistry L aboratory if there are any questions. ICa Whole Blood 1.32 1.15 - 1.33 mmol/L [facility] LABORATORY Comment: Note: ??Total bilirubin higher than 20 m g/dL may lead to falsely low ionized calcium. CL Whole Blood 113 (H) 98 - 107 mmol/L [facility] LABORATORY Gluc Whole Bld 136 65 - 199 mg/dL [facility] LABORATORY Comment: Diabetes: >=200 mg/dL plus symp toms. Lactate WB 2.0 0.5 - 2.2 mmol/L [facility] LABORATORY Specimen Anatomical Collection Method Collection Time Receive d Time (Source) Location / / Volume Laterality Blood 05/15/2022 3:33 PM 3:[address] Jamel Torre MD CHEMISTRY ORDERABLES Performing Organization Address City/State/ZIP [place] [address] (ABNORMAL) BLOOD GAS 2 ARTERIAL (05/15/2022 2:06 PM EDT) Analysis Performed At Patho logist Time Signature pH Art 7.39 7.35 - [facility] 7.[address] [facility] LABORATORY pCO2 Art 35 35 - 45 [facility] LABORATORY pO2 Art 135 (H) 85 - 104 [facility] LABORATORY HCO3 Art 20.8 20.0 - [facility] 26.0 [facility] mmol/L [facility] LABORATORY BE Art -4.2 (L) -3.0 - 3.0 [facility] mmol/L [facility] LABORATORY Hgb Blood Gas 14.5 13.7 - [facility] 16.5 g/dL [facility] O2HB Art 97.2 (H) 94.0 - [facility] 97.0 % [facility] LABORATORY COHB Art 1.2 % [facility] LABORATORY Comment: Nonsmokers: 0.5-1.5% COHB Smokers: Variable, but usually less than 10% Toxic: 20-30% COHB Lethal: Greater than 60% COHB METHB Art 0.3 <=1.5 % [facility] LABORATORY Na Whole Blood 140 135 - 145 mmol/L [facility] K Whole Blood 3.8 3.5 - 5.0 mmol/L [facility] LABOR[facility] Comment: Please note: Patients with WBC >100,000 may have falsely elevated Potassium levels. Contact the Clinical Chemistry L aboratory if there are any questions. ICa Whole Blood 1.12 (L) 1.15 - 1.33 mmol/L [facility] LABORATORY Comment: Note: ??Total bilirubin higher than 20 m g/dL may lead to falsely low ionized calcium. CL Whole Blood 109 (H) 98 - 107 mmol/L [facility] LABORATORY Gluc Whole Bld 152 65 - 199 mg/dL [facility] LABORATORY Comment: Diabetes: >=200 mg/dL plus symp toms. Lactate WB 1.5 0.5 - 2.2 mmol/L [facility] LABORATORY Specimen Anatomical Collection Method Collection Time Receive d Time (Source) Location / / Volume Laterality Blood 05/15/2022 2:06 PM 2:[address] Jamel Torre MD CHEMISTRY ORDERABLES Performing Organization Address City/[facility]/[place] [address] (ABNORMAL) Prothrombin Time (05/15/2022 12:30 PM EDT) athologist Signature PT 12.9 (H) 9.4 - 12.5 [facility] LABORATORY INR 1.1 [facility] LABORATORY Comment: An INR [...] Morales DO HEMATOLOGY ORDERABLES Performing Organization Address City/[facility]/[place] [address] (ABNORMAL) APTT (05/15/2022 12:30 PM EDT) P athologist Signature PTT 76 (H) 25 - 37 sec [facility] LABORATORY Comment: The PTT is NOT [...] Daquan Claudiocy HEMATOLOGY ORDERABLES Performing Organization Address City/[facility]/ZIP Code Phon e Number [address] Gold Tube HOLD (05/15/2022 12:20 PM EDT) athologist Signature Gold Hold Sample in [facility]. [facility] LABORATORY Specimen Anatomical Collection Method Collection Time Receive d Time (Source) Location / / Volume Laterality Blood No Charge / 05/15/2022 12:20 05/15/2022 Unknown PM EDT 12:20 PM EDT Lc TRIPP CHEMISTRY ORDERABLES Performing Organization Address City/[facility]/[place] [address] Type and Screen Validity (05/15/2022 12:00 PM EDT) [facility] Method Time Signature T&S only valid [facility] at [facility] LABORATORY Comment: This Type and Screen result is only valid at the [facility] Specimen Anatomical Collection Method Collection Time Receive d Time (Source) Location / / Volume Laterality Blood 05/15/2022 12:00 05/15/2022 PM EDT 12:17 PM EDT Resulting Agency Comment Spec In Lab Lc TRIPP BLOOD BANK ORDERABLES Performing Organization Address City/[facility]/ZIP Code Phon e Number [address] ABORH Recheck Status (05/15/2022 12:00 PM EDT) [facility] Method Time Signature ABORH Recheck Order Placed [facility] K Order [facility] LABORATORY ABORH Type Complete [facility] LABORATORY Specimen Anatomical Collection Method Collection Time Receive d Time (Source) Location / / Volume Laterality Blood 05/15/2022 12:00 05/15/2022 PM EDT 12:17 PM EDT Resulting Agency Comment Spec In Lab Lc Dominick Kimberly PA BLOOD BANK ORDERABLES Performing Organization Address City/State/[place] [address] CK (05/15/2022 12:00 PM EDT) P athologist Signature CK, Total 87 0 - 200 [facility] unit/L [facility] LABORATORY Specimen Anatomical Collection Method Collection Time Receive d Time (Source) Location / / Volume Laterality Blood Venous Draw / 05/15/2022 12:00 05/15/2022 Unknown PM EDT 12:19 PM EDT Resulting Agency Comment Spec In Lab Fito Summers MD CHEMISTRY ORDERABLES Performing Organization Address City/State/ZIP Code Phon e Number [address] Antibody screen (05/15/2022 12:00 PM EDT) [facility] Method Time Signature Ab Screen Negative [facility] LABORATORY Expires at 05/18/2022 [facility] on: [facility] LABORATORY Specimen Anatomical Collection Method Collection Time Receive d Time (Source) Location / / Volume Laterality Blood 05/15/2022 12:00 05/15/2022 PM EDT 12:17 PM EDT Resulting Agency Comment Spec In Lab Lc Harris PA BLOOD BANK ORDERABLES Performing Organization Address City/State/ZIP Code Phon e Number [address] ABO/Rh Typing (05/15/2022 12:00 PM EDT) P athologist Signature ABORh Type O Pos [facility] LABORATORY Specimen Anatomical Collection Method Collection Time Receive d Time (Source) Location / / Volume Laterality Blood 05/15/2022 12:00 05/15/2022 PM EDT 12:17 PM EDT Resulting Agency Comment Spec In Lab Lc TRIPP BLOOD BANK ORDERABLES Performing Organization Address City/State/ZIP [place] [address] (ABNORMAL) Differential, Automated (05/15/2022 12:00 PM EDT) [facility] Method Time Signature Neutrophils % 79.4 % [facility] LABORATORY Neutr Abs (ANC) 7.49 (H) 1.70 - [facility] 6.10 [facility] x10(3)/[facility] LABORATORY Lymphocytes % 11.3 % [facility] LABORATORY Lymphocytes Abs 1.1 0.9 - 3.2 [facility] x10(3)/[facility] LABORATORY Monocytes % 7.8 % [facility] LABORATORY Monocyte Abs 0.7 0.3 - 0.9 [facility] x10(3)/[facility] LABORATORY Eosinophils % 0.6 % [facility] LABORATORY Eosinophils Abs 0.1 0.0 - 0.4 [facility] x10(3)/[facility] LABORATORY Basophils % 0.6 % [facility] LABORATORY Basophils Abs 0.1 0.0 - 0.1 [facility] x10(3)/[facility] LABORATORY Immature Gran % 0.30 % [facility] LABORATORY Comment: Immature granulocytes(IG's)percentage an d absolute count will include metamyelocytes, myelocytes, and promyelo cytes. Blood smears from CBCs yielding IG's will be scanned manually for concor dance. If this scan disagrees with the automated IG or if promyelocytes are not ed, a manual differential will be performed. Rain Gran Abs 0.03 0.00 - 0.04 x10(3)/[facility] LABORATORY Specimen Anatomical Collection Method Collection Time Receive d Time (Source) Location / / Volume Laterality Blood 05/15/2022 12:00 05/15/2022 PM EDT 12:19 PM EDT Resulting Agency Comment Spec In Lab Lc TRIPP HEMATOLOGY ORDERABLES Performing Organization Address City/State/ZIP [place] [address] (ABNORMAL) Hemogram (05/15/2022 12:00 PM EDT) Analysis Performed At Patho logist Time Signature WBC 9.4 4.0 - 9.5 [facility] x10(3)/[facility] LABORATORY RBC 4.48 (L) 4.58 - [facility] 5.54 [facility] x10(6)/[facility] LABORATORY Hemoglobin 14.5 13.7 - [facility] 16.[facility] g/dL [facility] LABORATORY Hematocrit 42.4 40.5 - [facility] 48.5 % [facility] LABORATORY MCV 94.6 (H) 82.9 - [facility] 93.1 [facility] LABORATORY MCH 32.4 (H) 27.5 - [facility] 32.[address] [facility] LABORATORY MCHC 34.2 32.0 - [facility] 35.7 g/dL [facility] LABORATORY Platelets 209 145 - 357 [facility] x10(3)/[facility] LABORATORY RDWSD 45.9 (H) 36.0 - [facility] 45.0 [facility] LABORATORY RDWCV 13.1 11.4 - [facility] 13.8 % [facility] LABORATORY MPV 10.5 7.6 - 12.9 [facility] LABORATORY nRBC % Auto 0.0 % [facility] LABORATORY nRBC Abs Auto 0.000 0.000 - [facility] 0.000 [facility] x10(3)/[facility] LABORATORY Specimen Anatomical Collection Method Collection Time Receive d Time (Source) Location / / Volume Laterality Blood 05/15/2022 12:00 05/15/2022 PM EDT 12:19 PM EDT Resulting Agency Comment Spec In Lab Lc TRIPP HEMATOLOGY ORDERABLES Performing Organization Address City/State/[place] [address] (ABNORMAL) Basic Metabolic Panel (non-fasting) (05/15/2022 12:00 PM EDT) P athologist Signature Glucose Lvl 203 (H) 65 - 199 [facility] mg/dL [facility] LABORATORY Comment: Diabetes: >=200 mg/dL plus symp toms BUN 16 10 - 20 mg/dL [facility] LABORATORY Creatinine 0.84 0.80 - 1.50 mg/dL [facility] LABORATORY Sodium 141 135 - [...] estions. Chloride 107 98 - 107 mmol/L [facility] LABORATORY CO2 23 22 - 31 mmol/L [facility] Anion Gap 11 5 - 15 mmol/L [facility] LABORATORY Calcium 8.5 8.5 - 10.5 mg/dL [facility] LABORATORY Estimated GFR 89 >=60 mL/min/1.73 m?? [facility] Comment: This patient's estimated GFR [...] Organization Address City/State/Z[place] [address] documented in this encounter [...] tablet 75 mg 0816 (Given - Provider: tEta Don, RN) 75 mg, Oral, DAILY, First [...] - Reason: Transfer to a Procedural area)1955 ([facility] Unhold - Provider: Admin Adt) 10 [...] - Reason: Transfer to a Procedural area)1955 ([facility] Unhold - Provider: Admin Adt) 0-8,000 [...] - Reason: Transfer to a Procedural area)1955 ([facility] Unhold - Provider: Admin Adt) 3 [...] - Pr ovider: Emily Sauceda RN) 1750 ([facility] Hold - Provider: Admin Adt - R lexie: Transfer to a Procedural area)1955 ([facility] Unhold - Provider: Admin Adt) 5 mg, Intravenous, EVERY 5 MIN PRN, Star ting on Fri05/19/22 at 0506, Until Fri05/21/22 at 1743, Elevated Heart Rate, up to 3 doses for HR >110 midazolam (pf) (Versed) (1 mg/mL) multi-dose injection ([facility]) 1713 (Given - Provider: Abundio Servin [...] - Reason: Transfer to a Procedural area)1955 ([facility] Unhold - Provider: Admin Adt) 10-15 mg, Oral, EVERY 4 HOURS PRN, Start ing on Fri05/17/22 at 0655, Until Fri05/21/22 at 1743, Pain, severe pain (7-10), Initial dose 10mg. If pain control not adequate in 60 minutes, give additional 5mg, Routine oxyCODONE (Roxicodone) tablet 5-10 mg(Linked Group 2) 1750 (JAN Hold - Provider: Admin Adt - Reason: Transfer to a Procedural area)1955 ([facility] Unhold - Provider: Admin Adt) 5-10 [...]
Routine documented in this encounter Care Teams Sailmaker Relationship Specialty Start Date End Date Bobby Das MD PCP - General 10/02/[address] [place] [address] [place] [address] documented as of this encounter
--- OUTSIDE RECORDS SUMMARY | 2022-06-28 11:08 | XMS_ITS | Encounter Summary ---
:1940 [address] [facility] Address [place] [address] Care Team Providers Name Role Phone Bobby Das MD Primary Care Provider Reason for Visit - Closed Specialty Diagnoses / Procedures Referred By Contact Refer red To Contact Procedures Bobby Das MD Film Library- Storage Only DX [address] [place] [address] [phone] Referral ID Status Reason Start Date Expiration Date Visits Requ ested Visits Authorized [id number] Closed 04/13/2021 04/13/2022 1 1 Encounter Details Date Type Department Care Team Description 01/31/2021 Ancillary Procedure Radiology Library at Bobby Almaguer MD [address] [phone] (Rebekah rojas) Social History Tobacco Use Types [...] Jing Ghosh APRN [facility] DR VASCULAR SURGERY [place], [place] [address] (Wo rk) 09/02/2022 Clinical Support Dermatology Thai Lynn MD [facility] DR JENNY BILLY-DERMAT [place], [place] [address] (Wo rk) 09/02/2022 Procedure visit Dermatology Jace Lynn MD [facility] DR JENNY BILLY-DERMAT [place], [place] [address] (Wo rk) 09/05/2022 Appointment Cardiology Trinity Reid MD [facility] CARDIOLOGY [place], [place] [address] (Wo rk) 09/05/2022 Office Visit Cardiology Trinity Reid MD [facility] CARDIOLOGY [place], [place] [address] (Wo rk) documented as [...] Address City/State/ZIP Code Phon e Number RAD [place], [place] documented in this encounter Visit Diagnoses Not on filedocumented in this encounter Care Teams Manager It Training Relationship Specialty Start Date End Date Bobby Das MD PCP - General 10/02/[address] [place] [address] [place] [address] documented as of this encounter
--- OUTSIDE RECORDS SUMMARY | 2022-06-28 11:08 | XMS_ITS | Encounter Summary ---
:1940 Author Organization [facility] [place] [address] Care Team Providers Name Role Phone Bobby Das MD Primary Care Provider Reason for Referral Consultation (Routine) - Closed Specialty Diagnoses / Procedures Referred By Contact Refer red To Contact Neurology Diagnoses Low back pain, non-specific Status post vertebroplasty Transient left leg weakness EMG Arpita Whitney APRN [facility] [address] [place], [place] [address] [place] [phone] Fax: Referral ID Status Reason Start Date Expiration Date Visits V isits Requested Authorized [id number] Closed Consult, 04/17/2021 04/17/2022 1 1 Test & Treat hysical Therapy (Routine) - Specialty Diagnoses / Procedures Referred By Contact Refer red To Contact Diagnoses Low back pain, non-specific Status post vertebroplasty [place] [address] Referral ID Status Reason Start Date Expiration Date Visits V isits Requested Authorized [id number] Evaluate and 04/17/2021 10/14/2021 12 12 Treat Reason for Visit Reason Comments Back Pain new patient visit Consultation (Routine) - Closed Specialty Diagnoses / Procedures Referred By Contact Refer red To Contact [facility] Diagnoses Low back pain Pain - Low back pain/ MRI 02/20/21 & XR 01/31/21 @ [facility] Bobby Das MD [facility] Ctr Pain And [address] [place], [place] Drive [address] [place] [address] Phone: Fax: Referral ID Status Reason Start Date Expiration Date Visits Requ ested Visits Authorized [id number] Closed 03/07/2021 03/07/2022 1 1 Encounter Details Date Type Department Care Team Description 04/17/2021 Office Visit [facility] Sp[facility] Center Arpita Whitney Lo w back pain, non-specific; at [facility] APPAREL CUTTER Status post vertebroplasty; Count Includes [facility] Tra nsient left leg weakness Drive [place], [place] [phone] Social History Tobacco [...] from the original note were not included. [facility] [...] here for today. Had lumbar imaging and [facility] as ordered by PCP with no [...] standing limited due to back pain [facility] Prescription Monitoring Program was checked. The number of prescriptions reported was 0. Current Medications: Outpatient Medications Marked as Taking for the 04/17/21 encounter (Office Visit) with Arpita Whitney APRN Medication Sig Dispense Refill ??? fluticasone propionate (FLONASE) 50 mcg/actuation [place], Suspension as needed. ??? fluorouraciL (EFUDEX) 5 [...] IR Biopsy Spine 07/20/2019 Bobby Marshall MD [facility] INTERVENTIONL RAD ??? IR VERTEBROPLASTY LUMBAR MULTIPLE LEVELS 07/20/2019 IR Vertebroplasty Lumbar Multiple Levels 07/20/2019 Bobby Marshall MD [facility] INTERVENTIONL RAD ??? IR VERTEBROPLASTY THORACIC SINGLE LEVEL 10/25/2020 IR Vertebroplasty Thoracic Single Level 10/25/2020 Matt Chisholm MD [facility] INTERVENTIONL RAD Review of Systems: ROS: [...] y.o. year-old male who presents to the [facility] clinic, previously seen [...] Mr. Koko Zamora's care. Arpita Whitney, MSN, LINUX CONSULTANT- C, [employer]PAREL C[employer]TER Nurse Practitioner [facility] [address] [phone] / [facility] documented in this encounter Plan of Treatment Upcoming Encounters Date Type Specialty Care Team Description 07/02/2022 Office Visit Vascular Surgery Jing Ghosh APRN [facility] VASCULAR SURGERY [place], [place] [address] (Wo rk) 09/02/2022 Clinical Support Dermatology Thai Lynn MD [facility] DR JENNY BILLY-DERMAT [place], [place] [address] (Wo rk) 09/02/2022 Procedure visit Dermatology Jace Lynn MD [facility] DR JENNY BILLY-DERMAT [place], [place] [address] (Wo rk) 09/05/2022 Appointment Cardiology Trinity Reid MD [facility] CARDIOLOGY [place], [place] [address] (Wo rk) 09/05/2022 Office Visit Cardiology Trinity Reid MD [facility] CARDIOLOGY [place], [place] [address] (Wo rk) Scheduled Referrals Name [...] limbs documented in this encounter Care Teams Remelter Relationship Specialty Start Date End Date Bobby Das MD PCP - General 10/02/[address] [place] [address] [place] [address] documented as of this encounter
--- OUTSIDE RECORDS SUMMARY | 2022-06-28 11:08 | XMS_ITS | Encounter Summary ---
:1940 [place] [address] Care Team Providers Name Role Phone Bobby Das MD Primary Care Provider Encounter Details Date Type Department Care Team Description 05/15/2022 Ancillary Procedure Radiology Library at [facility], Lavell Butt, [facility] [place] [address] VASCULAR SURGERY [phone] [place], [place] [address] (Wo rk) Social History Tobacco [...] 07/02/2022 Office Visit Vascular Surgery Jing Ghosh, SCREEN HANDLER [facility] VASCULAR SURGERY [place], [place] [address] (Wo rk) 09/02/2022 Clinical Support Dermatology Thai Lynn MD [facility] DR JENNY BILLY-DERMAT [place], [place] [address] (Wo rk) 09/02/2022 Procedure visit Dermatology Jace Lynn MD [facility] DR JENNY BILLY-DERMAT [place], [place] [address] (Wo rk) 09/05/2022 Appointment Cardiology Trinity Reid MD [facility] CARDIOLOGY [place], [place] [address] (Wo rk) 09/05/2022 Office Visit Cardiology Trinity Reid MD [facility] CARDIOLOGY [place], [place] [address] (Wo rk) documented as [...] Organization Address City/State/ZIP Code Phon e Number [place], [place] documented in this encounter Visit Diagnoses Not on filedocumented in this encounter Care Teams Ornamental Iron Worker Helper Relationship Specialty Start Date End Date Bobby Das MD PCP - General 10/02/[address] [place] [address] [place] [phone] documented as of this encounter
--- OUTSIDE RECORDS SUMMARY | 2022-06-28 11:08 | XMS_ITS | Encounter Summary ---
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, sequela Closed compression fracture of L1 lumbar vertebra with delayed healing, subsequent encounter Malignant neoplasm of prostate Zbigniew Thompson PA [facility] Interventionl Rad Procedures IR Vertebroplasty Lumbar Multiple Levels IR Vertebral Augmentation Lumbar Single Level [place] [address] [place] [address] Fax: Referral ID Status Reason Start Date Expiration Date Visits V isits Requested Authorized [id number] Closed Specialty 07/13/2019 07/12/2020 1 1 Service Requested iagnostic Test (Routine) - Closed Specialty Diagnoses / Procedures Referred By Contact Refer red To Contact Radiology Diagnoses Closed compression fracture of L1 lumbar vertebra with delayed healing, subsequent encounter Malignant neoplasm of prostate Zbigniew Thompson PA [facility] Interventionl Rad [place] [address] [place] [address] Fax: Referral ID Status Reason Start Date Expiration Date Visits V isits Requested Authorized [id number] Closed Specialty 07/13/2019 07/12/2020 1 1 Service Requested Reason for Visit Diagnostic Test (Routine) - Closed Specialty Diagnoses / Procedures Referred By Contact Refer red To Contact Radiology Diagnoses 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, sequela Closed compression fracture of L1 lumbar vertebra with delayed healing, subsequent encounter Malignant neoplasm of prostate Zbigniew Thompson, PA [facility] Interventionl Rad Procedures IR Vertebroplasty Lumbar Multiple Levels IR Vertebral Augmentation Lumbar Single Level [facility] [place] [facility] [place] [address] [place] [address] Fax: Referral ID Status Reason Start Date Expiration Date Visits V isits Requested Authorized [id number] Closed Specialty 07/13/2019 07/12/2020 1 1 Service Requested Encounter Details Date Type Department Care Team Description 07/20/2019 Hospital Encounter Radiology at [facility] Elmer Loya, Closed compression fracture of L1 lumbar vertebra with delayed healing, subsequent encounter; [facility] Malignant neoplasm of prostate; Drive [facility] Age-related osteoporosis wit h current pathological fracture of vertebra, sequela [place], [place] CENTER [address] SPINE CENTER [phone] [place] [address] Social History Tobacco Use Types Packs/Day Years [...] Martínez RN - 07/20/2019 10:06 AM EDT [facility] Discharge Instructions for Vertebroplasty Your vertebroplasty [...] is during regular office hours, please call [phone]. If it is after regular office hours, oron weekends or holidays, please call [phone] and ask to speak to the Exchange Engineer on callfor Interventional Radiology. XXX You have [...] of : 1940 AGE: 78 y.o. Address: [address] [place] [address] [place] [phone] (home) Mobile: No relevant phone numbers on file. Referring Provider: Zbigniew Thompson REASON FOR VISIT: Order Questions Answers Where will study be performed? [facility] Radiology [120] Specify location Lumbar Reason for [...] Office Visit Vascular Surgery Jing Ghosh, COMMERCIAL SALES CONSULTANT [facility] VASCULAR SURGERY [place], [place] [address] (Wo rk) 09/02/2022 Clinical Support Dermatology Thai Lynn MD [facility] DR JENNY BILLY-DERMAT [place], [place] [address] (Wo rk) 09/02/2022 Procedure visit Dermatology Jace Lynn MD [facility] DR JENNY BILLY-DERMAT [place], [place] [address] (Wo rk) 09/05/2022 Appointment Cardiology Trinity Reid MD [facility] CARDIOLOGY [place], [place] [address] (Wo rk) 09/05/2022 Office Visit Cardiology Trinity Reid MD [facility] CARDIOLOGY [place], [place] [address] (Wo rk) documented as of [...] made and a 13g a introducer needle ([employer]) was advanced through the right pedicle and [...] made an d a 13ga introducer needle ([employer]) was advanced through the left pedicle and [...] made and a 13g a introducer needle ([employer]) was advanced through the right pedicle and [...] made an d a 13ga introducer needle ([employer]) was advanced through the left pedicle and [...] contact e number below. Electronically signed by: Bobby Sullivan MD, [facility] ([phone]), at 07/20/2019 1:20 PM Elmer Loya MD IMG IR ORDERABLES IR [...] made and a 13g a introducer needle ([employer]utor[employer]) was advanced through the right pedicle and [...] made an d a 13ga introducer needle ([employer]) was advanced through the left pedicle and [...] made and a 13g a introducer needle ([employer]) was advanced through the right pedicle and [...] made an d a 13ga introducer needle ([employer]) was advanced through the left pedicle and [...] contact e number below. Electronically signed by: Bobby Sullivan MD, [facility] ([phone]), at 07/20/2019 1:20 PM Elmer Loya MD IMG IR ORDERABLES Surgical Pathology Report (07/20/2019 10:45 AM EDT) Component Value Ref Test Analysis Performed At [facility] Range Method Time Signature Surgical [id number] ? Location: [address] [place] [address] Report The signing pathologist has (i) examined [...] Jl Reynolds Verified: ??07/22/2019 ?Pathologist Performed at: ??-[facility] Dept. of Pathology, [place], [place] DISCUSSION Deeper levels into the biopsy [...] Organization Address City/State/[place] [address] Specimen to Pathology (07/20/2019 8:41 AM EDT) Specimen Anatomical Collection Method Collection Time Receive d Time (Source) Location / / Volume Laterality AP Specimen 07/20/2019 8:41 AM 9 8:41 EDT AM EDT Narrative [facility] - 07/20/2019 8:41 AM EDT Specimen requisition ordered. ??Separate Pathology report to follow Elmer Loya MD PATHOLOGY/CYTOLOGY ORDERABLE S Performing Organization Address City/Special Care Hospital/[place] [address] documented in this encounter [...] mg documented in this encounter Care Teams Waste Chopper Relationship Specialty Start Date End Date Bobby Das MD PCP - General 10/02/[address] [place] [address] [place] [phone] documented as of this encounter
--- OUTSIDE RECORDS SUMMARY | 2022-06-28 11:08 | XMS_ITS | Encounter Summary ---
:1940 [place] [address] Care Team Providers Name Role Phone Bobby Das MD Primary Care Provider Encounter Details Date Type Department Care Team Description 02/27/2021 Notes Only Radiology Matt Chisholm MD [facility] [place] [phone] DIAGNOSTIC RADIOLOGY [phone] [place] [id number] (Wo rk) Social History Tobacco Use Types [...] [facility] VASCULAR SURGERY [place], [place] [address] (Wo rk) 09/02/2022 Clinical Support Dermatology Thai Lynn MD [facility] DR JENNY BILLY-DERMAT [place], [place] [address] (Wo rk) 09/02/2022 Procedure visit Dermatology Jace Lynn MD [facility] DR JENNY BILLY-DERMAT [place], [place] [address] (Wo rk) 09/05/2022 Appointment Cardiology Trinity Reid MD [facility] CARDIOLOGY [place], [place] [address] (Wo rk) 09/05/2022 Office Visit Cardiology Trinity Reid MD [facility] CARDIOLOGY [place], [place] [address] (Wo rk) documented as of this encounter Visit Diagnoses Not on filedocumented in this encounter Care Teams Geotechnical Department Manager Relationship Specialty Start Date End Date Bobby Das MD PCP - General 10/02/[address] [place] [address] [place] [address] documented as of this encounter
--- OUTSIDE RECORDS SUMMARY | 2022-06-28 11:08 | XMS_ITS | Encounter Summary ---
:1940 Author Organization [place] [address] Care Team Providers Name Role Phone Bobby Das MD Primary Care Provider Encounter Details Date Type Department Care Team Description 08/28/2020 Ancillary Procedure Radiology at [facility] Amy Grimaldo [address] [place] [address] 10 [address] [phone] NEUROSURGERY-N [place], [place] [address] Social History Tobacco Use Types [...] 07/02/2022 Office Visit Vascular Surgery Jing Ghosh, PRODUCTION LEADER [facility] VASCULAR SURGERY [place], [place] [address] (Wo rk) 09/02/2022 Clinical Support Dermatology Thai Lynn MD [facility] DR JENNY BILLY-DERMAT [place], [place] [address] (Wo rk) 09/02/2022 Procedure visit Dermatology Jace Lynn MD [facility] DR JENNY BILLY-DERMAT [place], [place] [address] (Wo rk) 09/05/2022 Appointment Cardiology Trinity Reid MD [facility] [place]ARD[place]OLOGY [place], [place] [address] (Wo rk) 09/05/2022 Office Visit Cardiology Trinity Reid MD [facility] ER CARDIOLOGY [place], [place] [address] (Wo rk) documented as of [...] Address City/State/ZIP Code Phon e Number [place], [place] documented in this encounter Visit Diagnoses Not on filedocumented in this encounter Care Teams Senior Rd Engineer Relationship Specialty Start Date End Date Bobby Das MD PCP - General 10/02/[address] [place] [address] [place] [phone] documented as of this encounter
--- OUTSIDE RECORDS SUMMARY | 2022-06-28 11:08 | XMS_ITS | Encounter Summary ---
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, sequela Closed compression fracture of L1 lumbar vertebra with delayed healing, subsequent encounter Malignant neoplasm of prostate Zbigniew Thompson PA [facility] Interventionl Rad Procedures IR Vertebroplasty Lumbar Multiple Levels IR Vertebral Augmentation Lumbar Single Level [facility] [place] [address] [place] [address] Fax: Referral ID Status Reason Start Date Expiration Date Visits V isits Requested Authorized [id number] Closed Specialty 07/13/2019 07/12/2020 1 1 Service Requested iagnostic Test (Routine) - Closed Specialty Diagnoses / Procedures Referred By Contact Refer red To Contact Radiology Diagnoses Closed compression fracture of L1 lumbar vertebra with delayed healing, subsequent encounter Malignant neoplasm of prostate Zbigniew Thompson PA [facility] Interventionl Rad [place] [address] [place] [address] Fax: Referral ID Status Reason Start Date Expiration Date Visits V isits Requested Authorized [id number] Closed Specialty 07/13/2019 07/12/2020 1 1 Service Requested Reason for Visit Reason Comments Back Pain Consultation (ANDREINA) - Closed Specialty Diagnoses / Procedures Referred By Contact Refer red To Contact [facility] Diagnoses Collapsed vertebra, not elsewhere classified, lumbar region, subsequent encounter for fracture with routine healing Bobby Das MD [facility] Pain And [facility] [address] [place], [place] Drive [address] [place] [address] Phone: Fax: Referral ID Status Reason Start Date Expiration Date Visits V isits Requested Authorized [id number] Closed Consult, 06/30/2019 06/29/2020 1 1 Test & Treat Connection Center Encounter Details Date Type Department Care Team Description 07/13/2019 Office Visit Pain and Spine Center Zbigniew Thompson, Closed compression fracture of L1 lumbar vertebra with delayed healing, subsequent encounter; at [facility] Malignant neoplasm of prostate; [facility] Age -related 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, sequela [address] [place], [place] [address] [phone] Social History Tobacco Use Types Packs/Day Years [...] 07/02/2022 Office Visit Vascular Surgery Jing Ghosh, EDITOR NEWSPAPER [facility] VASCULAR SURGERY [place], [place] [address] (Wo rk) 09/02/2022 Clinical Support Dermatology Thai Lynn MD [facility] DR JENNY BILLY-DERMAT [place], [place] [address] (Wo rk) 09/02/2022 Procedure visit Dermatology Jace Lynn MD [facility] DR JENNY BILLY-DERMAT [place], [place] [address] (Wo rk) 09/05/2022 Appointment Cardiology Trinity Reid MD [facility] CARDIOLOGY [place], [place] [address] (Wo rk) 09/05/2022 Office Visit Cardiology Trinity Reid MD [facility] CARDIOLOGY [place], [place] [address] (Wo rk) documented as of [...] made and a 13g a introducer needle ([employer]) was advanced through the right pedicle and [...] made an d a 13ga introducer needle ([employer]) was advanced through the left pedicle and [...] made and a 13g a introducer needle ([employer]) was advanced through the right pedicle and [...] made an d a 13ga introducer needle ([employer]) was advanced through the left pedicle and [...] made and a 13g a introducer needle ([employer]) was advanced through the right pedicle and [...] made an d a 13ga introducer needle ([employer]) was advanced through the left pedicle and [...] made and a 13g a introducer needle ([employer]) was advanced through the right pedicle and [...] made an d a 13ga introducer needle ([employer]) was advanced through the left pedicle and [...] sequela documented in this encounter Care Teams Coroner Transport Technician Relationship Specialty Start Date End Date Bobby Das MD PCP - General 10/02/[address] [place] [address] [place] [phone] documented as of this encounter
--- OUTSIDE RECORDS SUMMARY | 2022-06-28 11:08 | XMS_ITS | Encounter Summary ---
:1940 [place] [address] Care Team Providers Name Role Phone Bobby Das MD Primary Care Provider Encounter Details Date Type Department Care Team Description 07/13/2019 Orders Only Radiology Alan Brink Gastrointestinal [facility] MD Rosa hemorrhage, unspecified [facility] DR hemorrhage type (Primary [id number] RADIOLOGY DEPT Dx) [phone] [place], [place] [address] Social History Tobacco Use Types [...] file Gets together: Not on file Attends caodaism service: Not on file Active member of [...] 07/02/2022 Office Visit Vascular Surgery Jing Ghosh, [facility] VASCULAR SURGERY [place], [place] [address] (Wo bob) 09/02/2022 Clinical Support Dermatology Thai Lynn MD [facility] DR JENNY BILLY-DERMAT [place], [place] [address] (Wo bob) 09/02/2022 Procedure visit Dermatology Jace Lynn MD [facility] DR JENNY BILLY-DERMAT [place], [place] [address] (Wo rk) 09/05/2022 Appointment Cardiology Trinity Reid MD [facility] ER CARDIOLOGY [place], [place] [address] (Wo rk) 09/05/2022 Office Visit Cardiology Trinity Reid MD [facility] ER CARDIOLOGY [place], [place] [address] (Wo rk) documented as of this encounter Results Prothrombin Time (07/20/2019 8:18 AM EDT) P athologist Signature PT 11.3 9.4 - 12.5 [facility] LABORATORY INR 1.0 [facility] LABORATORY Comment: An INR <2.0 indicates [...] Organization Address City/State/ZIP [place] [address] (ABNORMAL) Hemogram (07/20/2019 8:18 AM EDT) Analysis Performed At Patho logist Time Signature WBC 6.0 4.0 - 9.5 [facility] x10(3)/[facility] LABORATORY RBC 4.50 (L) 4.58 - [facility] 5.54 [facility] x10(6)/[facility] LABORATORY Hemoglobin 14.8 13.7 - [facility] 16.5 gm/dL [facility] LABORATORY Hematocrit 43.9 40.5 - ILDA HAGEN 48.5 % [facility] LABORATORY MCV 97.6 (H) 82.9 - ILDA HAGEN 93.[address] [facility] LABORATORY MCH 32.9 (H) 27.5 - ILDA NOEILCOCK 32.1 pg [facility] LABORATORY MCHC 33.7 32.0 - ILDA HAGEN 35.7 gm/dL [facility] LABORATORY Platelets 164 145 - 357 ILDA WHEATLEYXIAO x10(3)/[facility] LABORATORY RDWSD 49.3 (H) 36.0 - ILDA ONEILCOCK 45.[address] [facility] LABORATORY RDWCV 13.6 11.4 - ILDA XIAO 13.8 % [facility] LABORATORY MPV 10.0 7.6 - 12.9 [facility] LABORATORY nRBC % Auto 0.0 % [facility] LABORATORY nRBC Abs Auto 0.000 0.000 - ILDA WHEATLEYXIAO 0.000 [facility] x10(3)/[facility] LABORATORY Specimen Anatomical Collection Method Collection Time Receive d Time (Source) Location / / Volume Laterality Blood specimen 07/20/2019 8:18 AM 019 8:21 (specimen) EDT AM EDT Resulting Agency Comment Spec In Lab Bobby Marshall MD HEMATOLOGY ORDERABLES Performing Organization Address City/State/ZIP Code Phon e Number [place] [phone] HOSPITAL LAB[address]ATORY [address] documented in this encounter Visit Diagnoses Diagnosis Gastrointestinal hemorrhage, unspecified gastrointestinal hemorrhage type - Primary documented in this encounter Care Teams Blueprint Machine Operator Relationship Specialty Start Date End Date Bobby Das MD PCP - General 10/02/[address] [place] [address] [place] [address] documented as of this encounter
--- OUTSIDE RECORDS SUMMARY | 2022-06-28 11:08 | XMS_ITS | Encounter Summary ---
:1940 [place] [address] Care Team Providers Name Role Phone Bobby Das MD Primary Care Provider Encounter Details Date Type Department Care Team Description 10/13/2020 Notes Only Radiology at [facility] Alphonso Esquivel [facility] [place] [address] DIAGNOSTIC RADIOLOGY [phone] [place] [phone] (Wo rk) Social History Tobacco Use Types [...] APRN [facility] VASCULAR SURGERY [place], [place] [address] (Wo rk) 09/02/2022 Clinical Support Dermatology Thai Lynn MD [facility] DR JENNY BILLY-DERMAT [place], [place] [address] (Wo rk) 09/02/2022 Procedure visit Dermatology Jace Lynn MD [facility] DR JENNY BILLY-DERMAT [facility] [place], [place] [address] (Wo rk) 09/05/2022 Appointment Cardiology Trinity Reid MD [facility] CARDIOLOGY [place], [place] [address] (Wo rk) 09/05/2022 Office Visit Cardiology Trinity Reid MD [facility] CARDIOLOGY [place], [place] [address] (Wo rk) documented as of this encounter Visit Diagnoses Not on filedocumented in this encounter Care Teams Steel Hanger Relationship Specialty Start Date End Date Bobby Das MD PCP - General 10/02/[address] [place] [address] [place] [phone] documented as of this encounter
--- OUTSIDE RECORDS SUMMARY | 2022-06-28 11:09 | XMS_ITS | Encounter Summary ---
:1940 [place] [address] Care Team Providers Name Role Phone Bobby Das MD Primary Care Provider Encounter Details Date Type Department Care Team Description 08/25/2015 Telephone Dermatology at [facility] Gloria Ferrell MD [address] [facility] [place] [address] [facility]-DERMATOLOGY [phone] [place], [place] [address] (Wo rk) Social History Tobacco [...] Office Visit Vascular Surgery Jing Ghosh, HIRAL [facility] ER VASCULAR SURGERY [place], [place] [address] (Wo rk) 09/02/2022 Clinical Support Dermatology Thai Lynn MD [facility] DR JENNY BILLY-DERMAT [place], [place] [address] (Wo rk) 09/02/2022 Procedure visit Dermatology Jace Lynn MD [facility] DR JENNY BILLY-DERMAT [place], [place] [address] (Wo rk) 09/05/2022 Appointment Cardiology Trinity Reid MD [facility] CARDIOLOGY [place], [place] [address] (Wo rk) 09/05/2022 Office Visit Cardiology Trinity Reid MD [facility] CARDIOLOGY [place], [place] [address] (Wo rk) documented as of this encounter Visit Diagnoses Not on filedocumented in this encounter Care Teams Operation Agent Relationship Specialty Start Date End Date Bobby Das MD PCP - General 10/02/[address] [place] [address] [place] [phone] documented as of this encounter
--- OUTSIDE RECORDS SUMMARY | 2022-06-28 11:09 | XMS_ITS | Encounter Summary ---
:1940 Author Organization [place] [address] Care Team Providers Name Role Phone Bobby Das MD Primary Care Provider Reason for Visit Reason Comments Basal Cell Carcinoma Encounter Details Date Type Department Care Team Description 08/24/2015 Procedure visit Dermatology at [facility] Leo Solo BCC (basal cell Road MD Delores carcinoma of skin) [address] [facility] [address] [facility] [phone] [place] [address] Social History Tobacco Use Types Packs/Day Years [...] when the wound is well cared for. [place]chkiss drainage or slight yellow film on your [...] the hospital number and ask for the Transformation Lead studio receptionist. Wound Care for Sutured Wounds You should [...] the hospital number and ask for the Transformation Lead studio receptionist. documented in this encounter Progress Notes Leo Solo MD - 08/24/2015 3:25 PM EDT Operative Report Patient name: Koko Zamora : 1940 Date: 08/24/2015 Staff Surgeon: Leo Solo MD, PhD Wire Dropper I: Cassy Jacobson, Yolanda Verdin, Etta Burciaga, Gloria Culver MD Cloth Weaver: Kourtney Cabrera Pre-operative diagnosis: Basal cell carcinoma Post-operative diagnosis: Basal cell carcinoma Location: Right spiritism Procedure: Mohs micrographic surgery Indication for Mohs micrographic surgery: Critical anatomic location Stages: 2 Final defect size: 3.6 x 2.0 cm Stage I The nature and purpose of the procedure, associated risks, possible consequences and complications,and alternative forms of treatment were explained in detail. Informed consent and permission to takephotographs were obtained. The site was confirmed with the patient/authorized instruments sales representative/referring physician and a pre-operative time-out was [...] 08/24/2015 Staff Surgeon: Leo Solo MD, PhD Wire Dropper I: Yolanda Rivera, Estefania Welch Clinical Diagnosis: 3.6 x 2.0 cm surgical defect secondary to Mohs microscopically controlled excision of basal cell carcinoma Location: Right spiritism Procedure: Transposition flap repair Due to the [...] Office Visit Vascular Surgery Jing Ghosh APRN [facility] VASCULAR SURGERY [place], [place] [address] ([facility]) 09/02/2022 Clinical Support Dermatology Thai Lynn MD [facility] DR JENNY BILLY-DERMAT [place], [place] [address] ([facility]) 09/02/2022 Procedure visit Dermatology Jace Lynn MD [facility] DR JENNY BILLY-DERMAT [place], [place] [address] ([facility]) 09/05/2022 Appointment Cardiology Trinity Reid MD [facility] CARDIOLOGY [place], [place] [address] ([facility]) 09/05/2022 Office Visit Cardiology Trinity Reid MD [facility] ER CARDIOLOGY [place], [place] [address] (Wo rk) documented as of this encounter Visit Diagnoses Diagnosis BCC (basal cell carcinoma of skin) Basal cell carcinoma of skin, site unspe cified documented in this encounter Care Teams Field Geologist Relationship Specialty Start Date End Date Bobby Das MD PCP - General 10/02/[address] [place] [address] [place] [phone] documented as of this encounter
--- OUTSIDE RECORDS SUMMARY | 2022-06-28 11:09 | XMS_ITS | Encounter Summary ---
:1940 [place] [address] Care Team Providers Name Role Phone Bobby Das MD Primary Care Provider Reason for Visit Reason Onset Date Comments Other 07/19/2011 Encounter Details Date Type Department Care Team Description 07/19/2011 Telephone Cardiology at [facility] Chet Nicole [place] [address] CARDIOLOGY DEPT. [phone] [place], [place] [address] (Wo rk) Social History Tobacco [...] 07/02/2022 Office Visit Vascular Surgery Jing Ghosh, UPKEEP MECHANIC [facility] ER VASCULAR SURGERY [place], [place] [address] (Wo rk) 09/02/2022 Clinical Support Dermatology Thai Lynn MD [facility] DR JENNY BILLY-DERMAT [place], [place] [address] (Wo rk) 09/02/2022 Procedure visit Dermatology Jace Lynn MD [facility] DR JENNY BILLY-DERMAT [facility] [place], [place] [address] (Wo rk) 09/05/2022 Appointment Cardiology Trinity Reid MD [facility] CARDIOLOGY [place], [place] [address] (Wo rk) 09/05/2022 Office Visit Cardiology Trinity Reid MD [facility] CARDIOLOGY [place], [place] [address] (Wo rk) documented as of this encounter Visit Diagnoses Not on filedocumented in this encounter Care Teams O And M Supervisor Relationship Specialty Start Date End Date Bobby Das MD PCP - General 10/02/[address] [place] [address] [place] [phone] documented as of this encounter
--- OUTSIDE RECORDS SUMMARY | 2022-06-28 11:09 | XMS_ITS | Encounter Summary ---
:1940 Author Organization [facility] [place] [address] Care Team Providers Name Role Phone Bobby Das MD Primary Care Provider Encounter Details Date Type Department Care Team Description 09/18/2018 Telephone Dermatology at [facility] Yolanda Fraser RN [address] [place] [address] Social History Tobacco Use Types Packs/Day [...] Who lives with patient (i.e. spouse, children, fci/usp)? Spouse Relevant travel history or future plans: [...] Office Visit Vascular Surgery Jing Ghosh, COMMERCIAL PHOTOGRAPHER [facility] VASCULAR SURGERY [place], [place] [address] (Rebekah rojas) 09/02/2022 Clinical Support Dermatology Thai Lynn MD [facility] DR JENNY BROWN-DERMAT [place], [place] [address] (Rebekah rojas) 09/02/2022 Procedure visit Dermatology Jace Lynn MD [facility] DR JENNY BROWN-DERMAT [place], [place] [address] (Wo rk) 09/05/2022 Appointment Cardiology Trinity Reid MD [facility] CARDIOLOGY [place], [place] [address] (Wo rk) 09/05/2022 Office Visit Cardiology Trinity Reid MD [facility] CARDIOLOGY [place], [place] [address] (Wo rk) documented as of this encounter Visit Diagnoses Not on filedocumented in this encounter Care Teams Cover Remover Relationship Specialty Start Date End Date Bobby Das MD PCP - General 10/02/[address] [place] [address] [place] [phone] documented as of this encounter
--- OUTSIDE RECORDS SUMMARY | 2022-06-28 11:09 | XMS_ITS | Encounter Summary ---
:1940 Author Organization [facility] [place] [address] Care Team Providers Name Role Phone Bobby Das MD Primary Care Provider Reason for Visit Reason Comments Suture / Staple Removal Encounter Details Date Type Department Care Team Description 08/31/2015 Clinical Support Dermatology at [facility] Visit for suture Heat Nicol Estrella MD removal [address] [facility] [address] [facility] [phone] RD-DERMATOLOGY [place] [phone] Social History Tobacco Use Types Packs/Day Years Used Date Current Some Day Smoker 1 50 Smokeless Tobacco: Never Used Sex Assigned at Date Recorded Not on file documented as of this encounter Progress Notes Jeni Franco LPN - 08/31/2015 2:47 PM EDT HPI: Patient is a 74 y.o. male with history of basal cell carcinoma, right confucianism, s/p Mohs repairedby transposition flap repair who is presenting for suture removal. Denies complications. Exam: General: No acute distress Skin: Limited examination of right confucianism shows a well-healed flap. There is no erythema, dehiscence, ecchymosis, or drainage. Assessment and Plan 1. Basal cell carcinoma, right confucianism, s/p Mohs repaired by transposition flap repair [...] 07/02/2022 Office Visit Vascular Surgery Jing Ghosh, ROPE COILING MACHINE OPERATOR [facility] VASCULAR SURGERY [place], [place] [address] (Wo rk) 09/02/2022 Clinical Support Dermatology Thai Lynn MD [facility] DR JENNY BILLY-DERMAT [place], [place] [address] (Wo rk) 09/02/2022 Procedure visit Dermatology Jace Lynn MD [facility] DR JENNY BILLY-DERMAT [place], [place] [address] (Wo rk) 09/05/2022 Appointment Cardiology Trinity Reid MD [facility] CARDIOLOGY [place], [place] [address] (Wo rk) 09/05/2022 Office Visit Cardiology Trinity Reid MD [facility] CARDIOLOGY [place], [place] [address] (Wo rk) documented as of this encounter Visit Diagnoses Diagnosis Visit for suture removal Encounter for removal of sutures documented in this encounter Care Teams Batch Or Continuous Still Operator Relationship Specialty Start Date End Date Bobby Das MD PCP - General 10/02/[address] [place] [address] [place] [phone] documented as of this encounter
--- OUTSIDE RECORDS SUMMARY | 2022-06-28 11:09 | XMS_ITS | Encounter Summary ---
:1940 Author Organization [facility] [place] [address] Care Team Providers Name Role Phone Bobby Das MD Primary Care Provider Reason for Referral Diagnostic Test (Routine) - Specialty Diagnoses / Procedures Referred By Contact Refer ramila To Contact Radiology Diagnoses Chest pain, unspecified type Chronic abdominal pain Chano Rebolledo MD [facility] Rad Ct Scan Procedures CT Chest w Contrast CT Chest wo Contrast (Generic) [facility] [address] [place] [address] Referral ID Status Reason Start Date Expiration Visits Visits Date Requested Authorized [id number] Specialty 12/13/2016 12/13/2017 1 1 Service Requested Consultation (Routine) - Closed Specialty Diagnoses / Procedures Referred By Contact Refer ramila To Contact Neurology Diagnoses Radiculopathy of cervical region Chano Rebolledo MD [facility] 3c [facility] [place] [address] [place] [address] Referral ID Status Reason Start Date Expiration Date Visits V isits Requested Authorized [id number] Closed Test Only 12/13/2016 12/13/2017 1 1 Diagnostic Test (Routine) - Closed Specialty Diagnoses / Procedures Referred By Contact Refer red To Contact Radiology Diagnoses Chest pain, unspecified type Chronic abdominal pain Chano Rebolledo MD [facility] Rad Ct Scan Procedures CT Abdomen & Pelvis w Contrast [facility] [place] [address] [place] [address] Referral ID Status Reason Start Date Expiration Date Visits V isits Requested Authorized [id number] Closed Specialty 12/13/2016 12/13/2017 1 1 Service Requested Reason for Visit Reason Comments Pain Management Neck Pain Bilateral Arm Pain burning across sternum and r ibs, both sides Consultation (Routine) - Closed Specialty Diagnoses / Procedures Referred By Contact Refer red To Contact Pain Management Diagnoses cervical radiculopathy Bobby Das MD [facility] [address] [place] [address] [address] [place], [place] [address] [address] [place] [address] Fax: Referral ID Status Reason Start Date Expiration Date Visits V isits Requested Authorized [id number] Closed Consult, 11/22/2016 11/22/2017 1 1 Test & Treat Encounter Details Date Type Department Care Team Description 12/13/2016 Office Visit Pain Management at [facility], Chest adrianna n, unspecified type; Jose Sullivan MD Chronic abdominal pain; [facility] Radiculop athy of cervical region [facility] [place] [address] [place] [address] Social History Tobacco Use Types [...] Rebolledo MD - 12/13/2016 1:00 PM EST [facility] [place] [address] Phone: PAIN MANAGEMENT NEW PATIENT / CONSULTATION NOTE DATE OF VISIT 12/13/2016 Patient Koko Zamora 1940 REFERRING PROVIDER Bobby Das MD [address] [place] [address] [place] [address] PRIMARY CARE PROVIDER Bobby Das MD CHIEF [...] Aspirin Other (See Comments) 06/28/2011 MEDICATIONS The [place] and [place] Prescription Monitoring Program were checked & no [...] restless FUNCTIONAL /SOCIAL Lives with: 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. Follow up: -Patient will be called after results are obtained. Koko J Zamora had the opportunity to ask questions and indicated that all questions were answered to his satisfaction. Thank you for this referral, Bobby Das MD [address] [place] [address]. Chano Rebolledo MD Leonel Orozco MD - [...] 07/02/2022 Office Visit Vascular Surgery Jing Ghosh, METERS SUPERINTENDENT [facility] VASCULAR SURGERY [place], [place] [address] (Wo rk) 09/02/2022 Clinical Support Dermatology Thai Lynn MD [facility] DR JENNY BILLY-DERMAT [place], [place] [address] (Wo rk) 09/02/2022 Procedure visit Dermatology Jace Lynn MD [facility] DR JENNY BILLY-DERMAT [place], [place] [address] (Wo rk) 09/05/2022 Appointment Cardiology Trinity Reid MD [facility] CARDIOLOGY [place], [place] [address] (Wo rk) 09/05/2022 Office Visit Cardiology Trinity Reid MD [facility] CARDIOLOGY [place], [place] [address] (Wo rk) Scheduled Referrals Name [...] site documented in this encounter Care Teams Bench Mechanic Relationship Specialty Start Date End Date Bobby Das MD PCP - General 10/02/[address] [place] [address] [place] [phone] documented as of this encounter
--- OUTSIDE RECORDS SUMMARY | 2022-06-28 11:09 | XMS_ITS | Encounter Summary ---
:1940 Author Organization [facility] [place] [address] Care Team Providers Name Role Phone Bobby Das MD Primary Care Provider Encounter Details Date Type Department Care Team Description 12/13/2016 Telephone Pain Management [place] [address] Social History Tobacco Use Types Packs/Day [...] Office Visit Vascular Surgery Jing Ghosh, HIRAL [facility] DR VASCULAR SURGERY [place], [place] [address] (Wo rk) 09/02/2022 Clinical Support Dermatology Thai Lynn MD [facility] DR JENNY BILLY-DERMAT [place], [place] [address] (Wo rk) 09/02/2022 Procedure visit Dermatology Jace Lynn MD [facility] DR JENNY BILLY-DERMAT [place], [place] [address] (Wo rk) 09/05/2022 Appointment Cardiology Trinity Reid MD [facility] ER CARDIOLOGY [place], [place] [address] (Wo rk) 09/05/2022 Office Visit Cardiology Trinity Reid MD [facility] CARDIOLOGY [place], [place] [address] (Wo rk) documented as of this encounter Visit Diagnoses Not on filedocumented in this encounter Care Teams Furnace Process Supervisor Relationship Specialty Start Date End Date Bobby Das MD PCP - General 10/02/[address] [place] [address] [place] [address] documented as of this encounter
--- OUTSIDE RECORDS SUMMARY | 2022-06-28 11:09 | XMS_ITS | Encounter Summary ---
:1940 Author Organization [facility] [place] [address] Care Team Providers Name Role Phone Bobby Das MD Primary Care Provider Reason for Visit Reason Comments Skin Check Encounter Details Date Type Department Care Team Description 03/29/2014 Office Visit Dermatology at [facility], Kyle c ell carcinoma (Primary Dx); Nba CARCAMO Verruca vulgaris; [address] [place] (actinic keratosis) [facility] B DERMATOLOGY [place], [place] [phone] Social History Tobacco Use Types Packs/Day Years [...] sun over the years. He lives in [place], [place]. Physical examination reveals a pleasant, 73-year-old gentleman who has a pearly, 1-cm papule on the right lateral canthus, site A; and a pearly papule about 8 mm in diameter, site C, on the right christian at the scalp line. At the central [...] BCCAs, right lateral canthus and right lateral christian, sites A and C, respectively. a. After [...] Office Visit Vascular Surgery Jing Ghosh, HIRAL [facility] VASCULAR SURGERY [place], [place] [address] (Wo rk) 09/02/2022 Clinical Support Dermatology Thai Lynn MD [facility] DR JENNY BILLY-DERMAT [place], [place] [address] (Wo obb) 09/02/2022 Procedure visit Dermatology Jace Lynn MD [facility] DR JENNY BILLY-DERMAT [place], [place] [address] (Wo rk) 09/05/2022 Appointment Cardiology Trinity Reid MD [facility] CARDIOLOGY [place], [place] [address] (Wo rk) 09/05/2022 Office Visit Cardiology Trinity Reid MD [facility] CARDIOLOGY [place], [place] [address] (Wo rk) documented as of this encounter Visit Diagnoses Diagnosis Basal cell carcinoma - Primary Basal cell carcinoma of skin, site unspe cified Verruca vulgaris Viral warts, unspecified [place] (actinic keratosis) Actinic keratosis documented in this encounter Care Teams Factory Supervisor Relationship Specialty Start Date End Date Bobby Das MD PCP - General 10/02/[address] [place] [address] [place] [phone] documented as of this encounter
--- OUTSIDE RECORDS SUMMARY | 2022-06-28 11:09 | XMS_ITS | Encounter Summary ---
:1940 Author Organization [facility] [place] [address] Care Team Providers Name Role Phone Bobby Das MD Primary Care Provider Reason for Referral Diagnostic Test (Routine) - Specialty Diagnoses / Procedures Referred By Contact Refer red To Contact Radiology Diagnoses Chest pain, unspecified type Chronic abdominal pain Chano Rebolledo MD [facility] Rad Ct Scan Procedures CT Chest w Contrast CT Chest wo Contrast (Generic) [facility] [place] [address] [place] [address] Referral ID Status Reason Start Date Expiration Visits Visits Date Requested Authorized [id number] Specialty 12/13/2016 12/13/2017 1 1 Service Requested Diagnostic Test (Routine) - Closed Specialty Diagnoses / Procedures Referred By Contact Refer red To Contact Radiology Diagnoses Chest pain, unspecified type Chronic abdominal pain Chano Rebolledo MD [facility] Rad Ct Scan Procedures CT Abdomen & Pelvis w Contrast [facility] [place] [address] [place] [address] Referral ID Status Reason Start Date Expiration Date Visits V isits Requested Authorized [id number] Closed Specialty 12/13/2016 12/13/2017 1 1 Service Requested Reason for Visit Diagnostic Test (Routine) - Closed Specialty Diagnoses / Procedures Referred By Contact Refer red To Contact Radiology Diagnoses Chest pain, unspecified type Chronic abdominal pain Chano Rebolledo MD [facility] Rad Ct Scan Procedures CT Abdomen & Pelvis w Contrast [facility] [place] [address] [place] [address] Referral ID Status Reason Start Date Expiration Date Visits V isits Requested Authorized [id number] Closed Specialty 12/13/2016 12/13/2017 1 1 Service Requested Encounter Details Date Type Department Care Team Description 12/17/[address] Scan at [facility], Chest pain, unspecified type ; [facility] Leonel Sullivan MD Chronic abdominal pain [facility] [address] PAIN CLINIC [phone] [place] [address] Social History Tobacco Use Types [...] Ghosh, HIRAL [facility] VASCULAR SURGERY [place], [place] [address] (Wo rk) 09/02/2022 Clinical Support Dermatology Thai Lynn MD [facility] DR JENNY BILLY-DERMAT [place], [place] [address] (Wo rk) 09/02/2022 Procedure visit Dermatology Jace Lynn MD [facility] DR JENNY BILLY-DERMAT [place], [place] [address] (Wo rk) 09/05/2022 Appointment Cardiology Trinity Reid MD [facility] ER DR WARNER [place], [place] [address] (Wo rk) 09/05/2022 Office Visit Cardiology Trinity Reid MD [facility] [place], [place] [address] (Wo rk) documented as of [...] [place] 12/17/2016 4:06 PM Leonel Orozco MD [facility] ORDERABLES SCAN DOC: CT SCAN (09/09/2016 [...] 1237 documented in this encounter Care Teams Decontaminator Relationship Specialty Start Date End Date Bobby Das MD PCP - General 10/02/[address] [place] [address] [place] [address] documented as of this encounter
--- OUTSIDE RECORDS SUMMARY | 2022-06-28 11:09 | XMS_ITS | Encounter Summary ---
:1940 Author Organization [facility] [place] [address] Care Team Providers Name Role Phone Bobby Das MD Primary Care Provider Reason for Visit Reason Comments Follow-up Encounter Details Date Type Department Care Team Description 05/31/2014 [facility], [facility] of basal cell Nba CARCAMO carcinoma (Primary [address] Dx) [facility] B DERMATOLOGY [place], [place] [address] [phone] Social History Tobacco Use Types Packs/Day Years Used Date Current Some Day Smoker 1 50 Smokeless Tobacco: Never Used Sex Assigned at Date Recorded Not on file documented as of this encounter Patient Instructions Patient InstructionsSupriya Louis LPN - 05/31/2014 1:34 PM EDT Images from the original note were not included. [facility] Actinic Keratosis: After Your Visit Your Care [...] more? Visit our health information library at [email or web address] You can also view health information on [employer]Evidence, your personal patient account. Log in or sign up today. Enter L364 in the search box to learn more about Actinic Keratosis: After Your Visit. ?? [id number] [employer]. Care instructions adapted under license by [facility]. This care instruction is for use with your licensed healthcare professional. If you have questionsabout a medical condition or this instruction, always ask your healthcare professional. [employer] disclaims any warranty or liability for your use of this information. Content Version: [id number]; Last Revised: December 22, 2012 documented in this encounter Progress Notes Hammer, Cy J, MD - 05/31/2014 2:08 PM EDT Problem: Follow up for repeat skin checkup. Shadi follows up after last being seen in March. At that time, I removed using shave C and D a BCCA from the right lateral canthus and a BCCA from the right lateral anabaptist. I also treated a verruca vulgaris on [...] Office Visit Vascular Surgery Jing Ghosh APRN [facility] VASCULAR SURGERY [place], [place] [address] (Wo bob) 09/02/2022 Clinical Support Dermatology Thai Lynn MD [facility] DR JENNY BILLY-DERMAT [place], [place] [address] (Wo bob) 09/02/2022 Procedure visit Dermatology Jace Lynn MD [facility] DR JENNY BILLY-DERMAT [place], [place] [address] (Rebekah rojas) 09/05/2022 Appointment Cardiology Trinity Reid MD [facility] CARDIOLOGY [place], [place] [address] (Wo rk) 09/05/2022 Office Visit Cardiology Trinity Reid MD [facility] ER CARDIOLOGY [place], [place] [address] (Wo rk) documented as of this encounter Visit Diagnoses Diagnosis History of basal cell carcinoma - Primar y Personal history of other malignant neop lasm of skin documented in this encounter Care Teams Lead Manufacturing Engineering Tech Relationship Specialty Start Date End Date Bobby Das MD PCP - General 10/02/[address] [place] [address] [place] [address] documented as of this encounter
--- OUTSIDE RECORDS SUMMARY | 2022-06-28 11:09 | XMS_ITS | Encounter Summary ---
:1940 Author Organization [facility] [address] Care Team Providers Name Role Phone Bobby Das MD Primary Care Provider Encounter Details Date Type Department Care Team Description 07/26/2015 External Results Medical Records Provider, [facility] [place] [address] Social History Tobacco Use Types Packs/Day Years Used Date Current Some Day Smoker 1 50 Smokeless Tobacco: Never Used Sex Assigned at Date Recorded Not on file documented as of this encounter Plan of Treatment Upcoming Encounters Date Type Specialty Care Team Description 07/02/2022 Office Visit Vascular Surgery Jing Ghosh APRN [facility] VASCULAR SURGERY [place], [place] [address] (Wo rk) 09/02/2022 Clinical Support Dermatology Thai Lynn MD [facility] DR JENNY BILLY-DERMAT [place], [place] [address] (Wo rk) 09/02/2022 Procedure visit Dermatology Jace Lynn MD [facility] DR JENNY BILLY-DERMAT [place], [place] [address] (Wo rk) 09/05/2022 Appointment Cardiology Trinity Reid MD [facility] DR WARNER [place], [place] [address] (Wo rk) 09/05/2022 Office Visit Cardiology Trinity Reid MD [facility] ER CARDIOLOGY [place], [place] [address] (Wo rk) documented as of [...] on filedocumented in this encounter Care Teams Radar Engineer Relationship Specialty Start Date End Date Bobby Das MD PCP - General 10/02/[address] [place] [address] [place] [phone] documented as of this encounter
--- OUTSIDE RECORDS SUMMARY | 2022-06-28 11:09 | XMS_ITS | Encounter Summary ---
:1940 Author Organization [facility] [place] [address] Care Team Providers Name Role Phone Bobby Das MD Primary Care Provider Encounter Details Date Type Department Care Team Description 07/25/2015 Hospital Encounter Laboratory EdilLeo, [facility] [place] [address] [facility]-DERMATOLOGY [place], [place] [address] (Wo rk) Social History Tobacco Use Types Packs/Day Years Used Date Current Some Day Smoker 1 50 Smokeless Tobacco: Never Used Sex Assigned at Date Recorded Not on file documented as of this encounter Medications at Time of Discharge Medication Sig Dispensed Refills Start Date End Date MULTIVITAMIN (MULTIPLE Take 1 tablet by 0 VITAMIN ORAL) mouth daily. rosuvastatin (CRESTOR) 10 Take 10 mg by mouth 0 12/13/2016 mg tablet daily. fluticasone (FLONASE) 50 1 spray by Each 0 09/18/2018 mcg/actuation nasal spray Nare route daily. documented as of this encounter Plan of Treatment Upcoming Encounters Date Type Specialty Care Team Description 07/02/2022 Office Visit Vascular Surgery Jing Ghosh APRN [facility] VASCULAR SURGERY [place], [place] [address] (Wo rk) 09/02/2022 Clinical Support Dermatology Thai Lynn MD [facility] DR JENNY BILLY-DERMAT [place], [place] [address] (Wo rk) 09/02/2022 Procedure visit Dermatology Jace Lynn MD [facility] ER DR JENNY BILLY-DERMAT [place], [place] [address] (Wo rk) 09/05/2022 Appointment Cardiology Triniyt Reid MD [facility] ER CARDIOLOGY [place], [place] [address] ( rk) 09/05/2022 Office Visit Cardiology Trinity Reid MD [facility] ER CARDIOLOGY [place], [place] [address] ( rk) documented as of this encounter Procedures Procedure Name Priority Date/Time Associated Diagnosis Comme [facility] SURGICAL PATHOLOGY Routine 07/25/2015 9:51 AM Res ults for this REPORT EDT procedure are i n the results section. documented in this encounter Results Surgical Pathology Report (07/25/2015 9:51 AM EDT) Component Value Ref Test Analysis Performed At [facility] Range Method Time Signature Surgical The signing pathologist has (i) examined the relevant preparation(s) for the [facility] Pathology specimen(s) and (ii) rendered or confirmed the diagnosis(e s). [facility] Report Accession Number: [id number] . ?Surgic al Pathology DIAGNOSIS CONSULTATION CASE Outside slides labeled [id number], collection date 07/03/2015 . Skin, right scientology, excision: ?- ??BASAL CELL CARCINOMA, INFILTRATIVE TYPE with foci suspicious for perineural invasion, extending to the peripheral and deep s pecimen ?edges. S ee Discussion. CR-0 07/26/15 LLW 07/27/15 Verified by: ? Glenroy CARCAMO, Glenn Rosales ?Dermatopathologist ?(Electronic Signature ) The attending pathologist whose signature appears on this re port has reviewed all diagnostic slides and has edited the gross and/ or microscopic portion of the report in junaid dering the final pathologic diagnosis. DISCUSSION This case has been reviewed by Dr. Enamorado, who concurs with t terry diagnosis. CLINICAL INFORMATION Specimen Submitted: CONSULTATION CASE A - 3 slides labeled [id number], collection date 07/03/2015. [id number] Report to: [facility] Surgical Pathology Department [facility], [facility], 2nd Floor [address] [place], [place] ??[address] SPECIMEN PROCESSING [facility] ([facility]) pathology slide(s) are reviewed. ??Refer to Diagnosis and Specimen Submitted for specific case infor arpan. For the full text of the [facility] ([facility]) report(s) please refer to Non-DH Documentati on Pathology in the electronic health record (eDH). Specimen (Source) Anatomical Collection Method Collection Time Re ceived Time Location / / Volume Laterality 07/25/2015 9:51 AM EDT Leo Solo MD PATHOLOGY/CYTOLOGY ORDERABLE S Performing Organization Address City/State/[place] [address] H[facility]PITAL [facility] documented in this encounter Visit Diagnoses Not on filedocumented in this encounter Care Teams Director Of Event Marketing Relationship Specialty Start Date End Date Bobby Das MD PCP - General 10/02/[address] [place] [address] [place] [id number] documented as of this encounter
--- OUTSIDE RECORDS SUMMARY | 2022-06-28 11:09 | XMS_ITS | Encounter Summary ---
:1940 Author Organization [facility] [place] [address] Care Team Providers Name Role Phone Bobby Das MD Primary Care Provider Reason for Visit Reason Comments Basal Cell Carcinoma Encounter Details Date Type Department Care Team Description 08/08/2015 [facility] (basal cell Road MD carcinoma of skin) [address] [place] [address] [facility] [place] [place] [address] Social History Tobacco Use Types [...] Our facility does not offer a guest [facility] network at this time. We also recommend [...] specified we require that you have a tow bar driver, as surgery can be stressful and tiring. If you are being transported from a assisted or other similar facility, we request that someone stay with you during this appointment. We are located in the [facility] at [place], [place]. Please refer to the [facility] website for detailed driving directions ([email or web address]). When you arrive, please park in the upper parking lot. When you enter the building, go to the third floor, the law office receptionist area is located on the left [...] If this fails, contact our office at [phone] (after 5PM please call [phone] and ask for the Back Tender Fourdrinier structural steel ironworker). Avoid bending over, heavy lifting (no greater [...] are taking. Our office phone number is [phone]. documented in this encounter Progress Notes Leo Solo MD - 08/08/2015 1:50 PM EDT [facility] SURGICAL CONSULT Chief Complaint: Basal cell carcinoma History of Present Illness: Referring Physician: Dr. Zheng, [facility] (07/03/15) Tumor type: BCC Location of Skin Cancer: Right tenriism Duration of Presence: 1 year Previous Treatment: [...] acute distress. Skin: Limited examination of right tenriism reveals a 5 mm erythematous papule. Assessment and Plan 1. BCC, right tenriism Reviewed treament options including wide local excision, [...] and acting as a scribe for Dr. oSlo. I performed the above scribed service and agree with the accuracy of the documentation in this encounter. Leo Solo MD documented in this encounter Plan of Treatment Upcoming Encounters Date Type Specialty Care Team Description 07/02/2022 Office Visit Vascular Surgery Jing Ghosh, RETAIL SHIFT LEADER [facility] VASCULAR SURGERY [place], [place] [address] (Wo rk) 09/02/2022 Clinical Support Dermatology Thai Lynn MD [facility] DR JENNY BILLY-DERMAT [place], [place] [address] (Wo rk) 09/02/2022 Procedure visit Dermatology Jace Lynn MD [facility] DR JENNY BILLY-DERMAT [place], [place] [address] (Wo rk) 09/05/2022 Appointment Cardiology Trinity Reid MD [facility] CARDIOLOGY [place], [place] [address] (Wo rk) 09/05/2022 Office Visit Cardiology Trinity Reid MD [facility] CARDIOLOGY [place], [place] [address] (Wo rk) documented as of this encounter Visit Diagnoses Diagnosis BCC (basal cell carcinoma of skin) Basal cell carcinoma of skin, site unspe cified documented in this encounter Care Teams Parts Room Assistant Relationship Specialty Start Date End Date Bobby Das MD PCP - General 10/02/[address] [place] [address] [place] [address] documented as of this encounter
--- OUTSIDE RECORDS SUMMARY | 2022-06-28 11:09 | XMS_ITS | Encounter Summary ---
:1940 Author Organization [facility] Address [facility] [place] [address] Care Team Providers Name Role Phone Bobby Das MD Primary Care Provider Reason for Visit Reason Comments Shortness of Breath Encounter Details Date Type Department Care Team Description 06/28/2011 Office Visit Cardiology at [facility] Chet Nicole SOB (shortness of breath) (P rimary Dx); [facility] GIB (gastrointestinal bleeding); Drive [facility] MVP (mitral valve prolapse) [place] [address] CARDIOLOGY DEPT. [phone] [place], [place] [address] Social History Tobacco Use Types [...] Giordano MD - 06/28/2011 4:15 PM EDT [facility] Cholesterol and Triglycerides Tests: About These Tests [...] 60 mg/dl is considered ideal. ?? Total xhusxtoshzq-we-CIU ratio: A ratio of 5:1 or lower is recommended. ?? LDL cholesterol: Between 100-129 mg/dL is recommended. Lower than 100 mg/dL is considered ideal. ?? VLDL cholesterol: 30 mg/dL or less is recommended. ?? Triglycerides: Lower than 150 mg/dL is recommended. Where can you learn more? Visit our health information library at [email or web address]. You can also view health information on [employer], your personal patient account. Log in or sign up today. Enter V788 in the search box to learn more about Cholesterol and Triglycerides Tests: About These Tests. ?? [id number] [employer]. Care instructions adapted under license by [facility]. This care instruction is for use with your licensed healthcare professional. If you have questionsabout a medical condition or this instruction, always ask your healthcare professional. [employer] disclaims any warranty or liability for your [...] valve prolapse) s/p repair Surgery done at [facility] in 2000 ??? Hypertriglyceridemia ??? Adhesive capsulitis of L shoulder ??? Alcohol use Medications: Homestead-3 Fatty Acids-Vitamin E (FISH OIL) 1,000 mg [...] Visit Vascular Surgery Jing Ghosh APRN [facility] VASCULAR SURGERY [place], [place] [address] (Wo rk) 09/02/2022 Clinical Support Dermatology Thai Lynn MD [facility] DR JENNY BILLY-DERMAT [place], [place] [address] (Wo rk) 09/02/2022 Procedure visit Dermatology Jace Lynn MD [facility] DR JENNY BILLY-DERMAT [place], [place] [address] (Wo rk) 09/05/2022 Appointment Cardiology Trinity Reid MD [facility] CARDIOLOGY [place], [place] [address] (Wo rk) 09/05/2022 Office Visit Cardiology Trinity Reid MD [facility] CARDIOLOGY [place], [place] [address] (Wo rk) documented as of this encounter Procedures Procedure Name Priority Date/Time Associated Diagnosis Comme nts EKG 12-LEAD Routine 06/28/2011 2:59 PM SOB (shortness of Resu lts for this EDT breath) procedure are i n the results section . documented in this encounter Results EKG 12 Lead (06/28/2011 2:59 PM EDT) [facility] Method Time Signature Ventricular rate 70 BPM MUSE SYSTEM Atrial Rate 70 BPM MUSE SYSTEM P-R Interval 182 ms MUSE SYSTEM QRS Duration 106 ms MUSE SYSTEM Q-T Interval 406 ms MUSE SYSTEM QTC Calculated 438 ms MUSE SYSTEM (Bezet) Calculated P Monetta 60 degrees MUSE SYSTEM Calculated R Mon[place] -51 degrees MUSE SYSTEM Calculated T [place] 32 degrees MUSE SYSTEM INTERPRETATION Normal sinus [...] disorders documented in this encounter Care Teams Special Education Teachers Relationship Specialty Start Date End Date Bobby Das MD PCP - General 10/02/[address] [place] [address] [place] [address] documented as of this encounter
--- OUTSIDE RECORDS SUMMARY | 2022-06-28 11:09 | XMS_ITS | Encounter Summary ---
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 Chano Rebolledo MD [facility] [address] [place] [address] [place] [address] [place] [address] Phone: Fax: Referral ID Status Reason Start Date Expiration Date Visits V isits Requested Authorized [id number] Denied Consult, 12/18/2016 12/18/2017 1 0 Test & Treat Encounter Details Date Type Department Care Team Description 12/18/2016 Telephone Pain Management at Chano Freitas MD [facility] [place] [address] PAIN CLINIC [phone] [place], [place] [address] (Wo rk) Social History Tobacco [...] Office Visit Vascular Surgery Jing Ghosh, HIRAL [facility] VASCULAR SURGERY [place], [place] [address] (Wo bob) 09/02/2022 Clinical Support Dermatology Thai Lynn MD [facility] DR JENNY BILLY-DERMAT [place], [place] [address] (Rebekah rojas) 09/02/2022 Procedure visit Dermatology Jaec Lynn MD [facility] DR JENNY BILLY-DERMAT [place], [place] [address] (Rebekah rk) 09/05/2022 Appointment Cardiology Trinity Reid MD [facility] DR WARNER [place], [place] [address] (Rebekah rojas) 09/05/2022 Office Visit Cardiology Trinity Reid MD [facility] CARDIOLOGY [place], [place] [address] (Wo rk) Scheduled Referrals Name Type Priority Associated Diagnoses Order S chedule Referral to Outpatient Referral Routine Neoplasm of Ordered: Hematology and uncertain behavior 017 Oncology of respiratory organ documented as of this encounter Visit Diagnoses Diagnosis 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
--- OUTSIDE RECORDS SUMMARY | 2022-06-28 11:09 | XMS_ITS | Encounter Summary ---
:1940 Author Organization [facility] [place] [address] Care Team Providers Name Role Phone Bobby Das MD Primary Care Provider Encounter Details Date Type Department Care Team Description 12/16/2016 [facility] [place] [address] Social History Tobacco Use Types Packs/Day [...] [facility] VASCULAR SURGERY [place], [place] [address] (Wo rk) 09/02/2022 Clinical Support Dermatology Thai Lynn MD [facility] DR JENNY BILLY-DERMAT [place], [place] [address] (Wo rk) 09/02/2022 Procedure visit Dermatology Jace Lynn MD [facility] DR JENNY BILLY-DERMAT [place], [place] [address] (Wo rk) 09/05/2022 Appointment Cardiology Trinity Reid MD [facility] CARDIOLOGY [place], [place] [address] (Wo rk) 09/05/2022 Office Visit Cardiology Trinity Reid MD [facility] CARDIOLOGY [place], [place] [address] (Wo rk) documented as of this encounter Visit Diagnoses Not on filedocumented in this encounter Care Teams Thread Inspector Relationship Specialty Start Date End Date Bobby Das MD PCP - General 10/02/[address] [place] [address] [place] [id number] documented as of this encounter
--- OUTSIDE RECORDS SUMMARY | 2022-06-28 11:09 | XMS_ITS | Encounter Summary ---
:1940 Author Organization [facility] Address [address] [place] [address] Care Team Providers Name Role Phone Bobby Das MD Primary Care Provider Reason for Visit Reason Comments Shortness of Breath Encounter Details Date Type Department Care Team Description 12/24/2011 Office Visit [facility] Hosp Torrey Giang SOB (shortness of 189 [address] Bradley Mendoza MD breath) (Primary Dx) [facility], [place], [facility] [id number] CARDIOLOGY DEPT. [place], [place] [address] Social History Tobacco Use Types [...] 07/02/2022 Office Visit Vascular Surgery Jing Ghosh, IDENTIFICATION AND RECORDS COMMANDER [facility] VASCULAR SURGERY [place], [place] [address] (Wo rk) 09/02/2022 Clinical Support Dermatology Thai Lynn MD [facility] DR JENNY BILLY-DERMAT [place], [place] [address] (Wo rk) 09/02/2022 Procedure visit Dermatology Jace Lynn MD [facility] DR JENNY BILLY-DERMAT [place], [place] [address] (Wo rk) 09/05/2022 Appointment Cardiology Trinity Reid MD [facility] CARDIOLOGY [place], [place] [address] (Wo rk) 09/05/2022 Office Visit Cardiology Trinity Reid MD [facility] CARDIOLOGY [place], [place] [address] (Wo rk) documented as of this encounter Visit Diagnoses Diagnosis SOB (shortness of breath) - Primary Shortness of breath documented in this encounter Care Teams Proposition Player Relationship Specialty Start Date End Date Bobby Das MD PCP - General 10/02/[address] [place] [address] [place] [address] documented as of this encounter
--- OUTSIDE RECORDS SUMMARY | 2022-06-28 11:09 | XMS_ITS | Encounter Summary ---
:1940 [place] [address] Care Team Providers Name Role Phone Bobby Das MD Primary Care Provider Reason for Visit Reason Comments Wound Check Encounter Details Date Type Department Care Team Description 10/25/2015 Clinical Support Dermatology at Christine Gonzalez MD Follow up [facility] [address] [facility] [place] [address] [place] [address] [phone] (Wo rk) Social History Tobacco Use Types Packs/Day Years Used Date Current Some Day Smoker 1 50 Smokeless Tobacco: Never Used Sex Assigned at Date Recorded Not on file documented as of this encounter Progress Notes Leo Solo MD - 10/25/2015 1:01 PM EST CC: Wound check HPI: Patient is a 75 y.o. male with history of basal cell carcinoma, right baptism, s/p Mohs, repaired by transposition flap on who presents for wound check. Denies complications. States when he blinks he can feel the scar tissue. ROS: Otherwise well. No other skin complaints. Exam: General: No acute distress Skin: Limited examination of right baptism shows a well-healed flap with hypertrophy at the edge. Assessment and Plan 1. Basal cell carcinoma, right baptism, s/p Mohs, repaired by transposition flap Kenalog [...] Description 07/02/2022 Office Visit Vascular Surgery Jing Gohsh, CEILING INSULATION BLOWER [facility] VASCULAR SURGERY [place], [place] [address] (Wo rk) 09/02/2022 Clinical Support Dermatology Thai Lynn MD [facility] DR JENNY BILLY-DERMAT [place], [place] [address] (Wo rk) 09/02/2022 Procedure visit Dermatology Jace Lynn MD [facility] DR JENNY BILLY-DERMAT [place], [place] [address] (Wo rk) 09/05/2022 Appointment Cardiology Trinity Reid MD [facility] CARDIOLOGY [place], [place] [address] (Wo rk) 09/05/2022 Office Visit Cardiology Trinity Reid MD [facility] CARDIOLOGY [place], [place] [address] (Wo rk) documented as of this encounter Visit Diagnoses Diagnosis Follow up documented in this encounter Care Teams Superintendent Refuse Disposal Relationship Specialty Start Date End Date Bobby Das MD PCP - General 10/02/[address] [place] [address] [place] [phone] documented as of this encounter
--- OUTSIDE RECORDS SUMMARY | 2022-06-28 11:09 | XMS_ITS | Encounter Summary ---
:1940 Author Organization [facility] [place] [address] Care Team Providers Name Role Phone Bobby Das MD Primary Care Provider Encounter Details Date Type Department Care Team Description 12/20/2016 Telephone Pain Management at [facility] Kristin Schultz, RN [facility] [place] [address] Social History Tobacco Use Types Packs/Day Years Used Date Current Some Day Smoker 1 50 Smokeless Tobacco: Never Used Sex Assigned at Date Recorded Not on file documented as of this encounter Miscellaneous Notes Telephone Encounter - Kristin Schultz LPN - 12/20/2016 11:02 AM EST Pt called requesting that the Referral to Hematology and Oncology be sent to [facility]. Which is[place]oser to [place] home. Will Follow up up with the pain clinic after appointment. documented in this encounter Plan of Treatment Upcoming Encounters Date Type Specialty Care Team Description 07/02/2022 Office Visit Vascular Surgery Jing Ghosh, HIRAL [facility] VASCULAR SURGERY [place], [place] [address] (Wo bob) 09/02/2022 Clinical Support Dermatology Thai Lynn MD [facility] DR JENNY BILLY-DERMAT [place], [place] [address] (Wo bob) 09/02/2022 Procedure visit Dermatology Jace Lynn MD [facility] DR [address]-DERMAT [facility] [place], [place] [address] (Wo rk) 09/05/2022 Appointment Cardiology Trinity Reid MD [facility] CARDIOLOGY [place], [place] [address] (Wo rk) 09/05/2022 Office Visit Cardiology Trinity Reid MD [facility] CARDIOLOGY [place], [place] [address] (Wo rk) documented as of this encounter Visit Diagnoses Not on filedocumented in this encounter Care Teams Paper Making Machine Operator Relationship Specialty Start Date End Date Bobby Das MD PCP - General 10/02/[address] [place] [address] [place] [address] documented as of this encounter
--- OUTSIDE RECORDS SUMMARY | 2022-06-28 11:09 | XMS_ITS | Encounter Summary ---
:1940 Author Organization [facility] [place] [address] Care Team Providers Name Role Phone Bobby Das MD Primary Care Provider Encounter Details Date Type Department Care Team Description 06/26/2018 Ancillary Procedure Radiology Library at Bobby Almaguer MD [facility] [address] [place] [phone] (Wo rk) Social History Tobacco Use Types Packs/Day Years Used Date Current Some Day Smoker 1 50 Smokeless Tobacco: Never Used Sex Assigned at Date Recorded Not on file documented as of this encounter Plan of Treatment Upcoming Encounters Date Type Specialty Care Team Description 07/02/2022 Office Visit Vascular Surgery Jing Ghosh APRN [facility] DR VASCULAR SURGERY [place], [place] [address] (Wo rk) 09/02/2022 Clinical Support Dermatology Thai Lynn MD [facility] DR JENNY BILLY-DERMAT [place], [place] [address] (Wo rk) 09/02/2022 Procedure visit Dermatology Jace Lynn MD [facility] DR JENNY BILLY-DERMAT [place], [place] [address] (Wo rk) 09/05/2022 Appointment Cardiology Trinity Reid MD [facility] ER CARDIOLOGY [place], [place] [address] (Wo rk) 09/05/2022 Office Visit Cardiology Trinity Reid MD [facility] ER CARDIOLOGY [place], [place] [address] (Wo rk) documented as of [...] Organization Address City/State/ZIP Code Phon e Number [place], [place] documented in this encounter Visit Diagnoses Not on filedocumented in this encounter Care Teams Heel Layer Relationship Specialty Start Date End Date Bobby Das MD PCP - General 10/02/[address] [place] [address] [place] [phone] documented as of this encounter
--- OUTSIDE RECORDS SUMMARY | 2022-06-28 11:09 | XMS_ITS | Encounter Summary ---
:1940 Author Organization [facility] [place] [address] Care Team Providers Name Role Phone Bobby Das MD Primary Care Provider Reason for Visit Reason Onset Date Comments Pre Procedure Call 08/01/2015 Encounter Details Date Type Department Care Team Description 08/01/2015 Telephone Dermatology at [facility] Cassy Jacobson, Pre Procedure Call [address] [place] [address] Social History Tobacco Use Types Packs/Day [...] Vascular Surgery Jing Ghosh, HIRAL [facility] ER VASCULAR SURGERY [place], [place] [address] (Wo rk) 09/02/2022 Clinical Support Dermatology Thai Lynn MD [facility] DR JENNY BROWN-DERMAT [place], [place] [address] (Rebekah rk) 09/02/2022 Procedure visit Dermatology Jace Lynn MD [facility] DR [address]-DERMAT [place], [place] [address] (Wo rk) 09/05/2022 Appointment Cardiology Trinity Reid MD [facility] CARDIOLOGY [place], [place] [address] (Wo rk) 09/05/2022 Office Visit Cardiology Trinity Reid MD [facility] CARDIOLOGY [place], [place] [address] (Wo rk) documented as of this encounter Visit Diagnoses Not on filedocumented in this encounter Care Teams Tester Regulator Relationship Specialty Start Date End Date Bobby Das MD PCP - General 10/02/[address] [place] [address] [place] [phone] documented as of this encounter
--- OUTSIDE RECORDS SUMMARY | 2022-06-28 11:09 | XMS_ITS | Encounter Summary ---
:1940 Author Organization [facility] [place] [address] Care Team Providers Name Role Phone Bobby Das MD Primary Care Provider Reason for Visit Reason Comments Basal Cell Carcinoma Consultation (Routine) - Closed Specialty Diagnoses / Procedures Referred By Contact Refer red To Contact Dermatology Diagnoses REQUESTING MOHS PROCEDURE RIGHT EYEBROW FOR LESION REMOVED BUT ADDITIONAL TISSUE REMAINS Bobby Das MD Vidal, Nahid Y, MD [address] [place] [address] [place] [address] [place] [address] Fax: Referral ID Status Reason Start Date Expiration Date Visits V isits Requested Authorized [id number] Closed Consult, 06/24/2018 06/24/2019 1 1 [facility] Encounter Details Date Type Department Care Team Description 09/23/2018 Procedure visit Dermatology at Alvaro Romano, Basal cell carcinoma Nicol CARCAMO (BCC) of eyebrow [address] [facility] [address] [place] [address] [phone] Social History Tobacco Use Types Packs/Day Years [...] Llanos MD. Your wound(s) was repaired by [id number] stitches called a primary repair. You do [...] until your sutures are removed. 5. Some sweeper operator highways may need to be delayed or delegated [...] as often as is recommended by your director of business applications, for new skin cancers. This is once [...] it. If after hours, please call the tapering machine operator or [phone] and ask for the director of business applications on-call. If you have any non-urgent questions or concerns, please feel free to call my office or contact me through our patient portal, [email or web address], at [email or web address] How to contact us during business hours Dermatology at [facility] [address]: Mohs scheduling or Mohs follow-up appointments: [phone] documented in this encounter Progress Notes Alvaro [...] Who lives with patient (i.e. spouse, children, longterm/half-way)? Spouse Relevant travel history or future plans: [...] follow up with his or her referring director of business applications or other skin provider. Summary of Procedure(s): [...] : 1940 Date: 09/23/2018 Staff Surgeon: Alvaro Llnaos MD Nursing/Portal Architect(s): Assistants: Cassy Jacobson LPN, Jolene Pretty RN, Yolanda Fraser LPN, Savanah Licea CMA Asset Protection Officer (s): Cristina Cisneros Amanda Isenor Pre-operative diagnosis: [...] The site was confirmed with the patient/authorized junior sales representative/referring physician and/or a photograph form time [...] Right eyebrow Indication: repair of wound for taoist of function/anatomy Final Defect size: 1.5 x [...] 07/02/2022 Office Visit Vascular Surgery Jing Ghosh, DISTRESSER [facility] VASCULAR SURGERY [place] [address] (Wo rk) 09/02/2022 Clinical Support Dermatology Thai Lynn MD [facility] DR JENNY BILLY-DERMAT [place], [place] [address] (Wo rk) 09/02/2022 Procedure visit Dermatology Jace Lynn MD [facility] DR JENNY BILLY-DERMAT [place], [place] [address] (Wo rk) 09/05/2022 Appointment Cardiology Trinity Reid MD [facility] CARDIOLOGY [place], [place] [address] (Wo rk) 09/05/2022 Office Visit Cardiology Trinity Reid MD [facility] CARDIOLOGY [place], [place] [address] (Wo rk) documented as of this encounter Visit Diagnoses Diagnosis Basal cell carcinoma (BCC) of eyebrow documented in this encounter Care Teams Miller Helper Distillery Relationship Specialty Start Date End Date Bobby Das MD PCP - General 10/02/[address] [place] [address] [place] [address] documented as of this encounter
--- OUTSIDE RECORDS SUMMARY | 2022-06-28 11:09 | XMS_ITS | Encounter Summary ---
:1940 Author Organization [facility] [place] [address] Care Team Providers Name Role Phone Bobby Das MD Primary Care Provider Reason for Visit Reason Comments Shortness of Breath Encounter Details Date Type Department Care Team Description 09/17/2011 Office Visit [facility] Hosp Torrey Giang SOB (shortness of 189 Destin Bradley Mendoza MD breath) (Primary Dx) [facility] [address] CARDIOLOGY DEPT. [place] [address] Social History Tobacco Use Types Packs/Day Years Used Date Current Every Day Smoker 1 50 Smokeless Tobacco: Never Used Sex Assigned at Date Recorded Not on file documented as of this encounter Progress Notes Wai Schilling - 09/22/2011 2:11 PM EST Torrey Giang [...] Office Visit Vascular Surgery Jing Ghosh, HIRAL [facility] VASCULAR SURGERY [place], [place] [address] (Wo rk) 09/02/2022 Clinical Support Dermatology Thai Lynn MD [facility] DR JENNY BILLY-DERMAT [place], [place] [address] (Wo rk) 09/02/2022 Procedure visit Dermatology Jace Lynn MD [facility] DR JENNY BILLY-DERMAT [place], [place] [address] (Wo rk) 09/05/2022 Appointment Cardiology Trinity Reid MD [facility] CARDIOLOGY [place], [place] [address] (Wo rk) 09/05/2022 Office Visit Cardiology Trinity Reid MD [facility] CARDIOLOGY [place], [place] [address] (Wo rk) documented as of [...] breath documented in this encounter Care Teams Small Package And Bundle Sorter Clerk Relationship Specialty Start Date End Date Bobby Das MD PCP - General 10/02/[address] [place] [address] [place] [address] documented as of this encounter
--- OUTSIDE RECORDS SUMMARY | 2022-06-28 11:14 | XMS_ITS | Encounter Summary ---
:1940 Author Organization [facility] Address [address] [place] [address] Care Team Providers Name Role Phone Bobby Das MD Primary Care Provider Reason for Visit Reason Onset Date Comments Prostate Cancer 06/03/2018 Encounter Details Date Type Department Care Team Description 06/03/2018 Telephone [facility] Cancer Center Aries Gutierrez Cancer Radiation Oncology - III, [address] [address] [address], [place] [address] (Wo rk) Social History Tobacco Use Types Packs/Day Years Used Date Current Every Day Smoker Smokeless Tobacco: Never Used Sex Assigned at Date Recorded Not on file documented as of this encounter Miscellaneous Notes Telephone Encounter - Delores Gutierrez III, MD - 06/03/2018 3619 EDT RADIATION ONCOLOGY I spoke with Mr. Zamora by phone today. He tells me he is unable to make it to [place] for follow-up visits with me as he developed a compression fracture in his lumbar spine. He tells me he has completely recovered from his radiation therapy and no side effects from his radiation treatment at this point although he does continue to take tamsulosin. I told him I would prefer to see him in follow-up, but he is not willing to reschedule with me at this point. I did ask him to contact my office if he will be in the [place] area as I would be happyto move my schedule as needed to see him for follow-up. I did strongly encourage him to continue follow-up with Dr. José and asked him to call them to arrange an appointment. He canceled his next scheduled follow-up appointment with me. Sj Gutierrez MD Radiation Oncology [phone] (office) [phone] (pager) This note has been prepared with voice recognition software. Please excuse automation operator errors. documented in this encounter Plan of Treatment Not on filedocumented as of this encounter Visit Diagnoses Not on filedocumented in this encounter Care Teams Bonding Molder Relationship Specialty Start Date End Date Bobby Das MD PCP - General 07/06/[address] [place] [address],[address] [place] [address] documented as of this encounter
--- OUTSIDE RECORDS SUMMARY | 2022-06-28 11:14 | XMS_ITS | Encounter Summary ---
:1940 Author Organization [facility] Address [address] [place] [address] Care Team Providers Name Role Phone Bobby Das MD Primary Care Provider Encounter Details Date Type Department Care Team Description 06/17/2019 Results Only Imaging [facility]- Unknown, PRISM ProviderMD [phone] Social History Tobacco Use Types Packs/Day Years [...] on filedocumented in this encounter Care Teams Dumb Waiter Operator Relationship Specialty Start Date End Date Bobby Das MD PCP - General 07/06/[address] [place] [address] ,[address] [place] [address] documented as of this encounter
--- OUTSIDE RECORDS SUMMARY | 2022-06-28 11:14 | XMS_ITS | Encounter Summary ---
:1940 Author Organization [facility] Address [address] [place] [address] Care Team Providers Name Role Phone Bobby Das MD Primary Care Provider Encounter Details Date Type Department Care Team Description 10/03/[address] [facility] Bobby Das Enc ounter for other Pathology & MD general examination Laboratory Medicine [address] [place] [address],[address] [facility] [address] [place], [place] [address] [place] [phone] Social History Tobacco Use Types Packs/Day Years [...] EST) Note to Patient The following [facility] pathology results have CENTER been interpreted [...] is identified. Attestation By the signature [facility] Electronica lly below, the attending CENTER signed by Deejay, physician certifies LABORATORY Lis Platt MD on that they have 1) SERVICES 10/08/2021 at 1640 personally conducted a gross and/or microscopic examination of the described specimen(s), and/or personally interpreted the results of laboratory testing of the described specimen(s), and 2) personally rendered or confirmed the above diagnosis. Microscopic Sections consist of an [facility] Description excision of skin to CENTER [...] sections. Clinical History Firm lesion not [facility] healing; foreign body CENTER granuloma LABORATORY SERVICES Gross Description A. [facility] Received in formalin christina d with [...] SERVICES Toni Giordano 10/05/2021 8:15 Performing Lab [facility] LABOR[facility] SERVICES Scanned Images [facility] LABORATORY SERVICES Specimen Tissue - Skin (tissue) specimen (specime n) Performing Organization Address City/State/ZIP Code Phon e Number [facility] [address] [place] [address] SERVICES documented in this encounter Visit Diagnoses Diagnosis Encounter for other general examination documented in this encounter Care Teams K 9 Police Officer Relationship Specialty Start Date End Date Bobby Das MD PCP - General 07/06/[address] [place] [address] ,[address] [place] [address] documented as of this encounter
--- OUTSIDE RECORDS SUMMARY | 2022-06-28 11:14 | XMS_ITS | Encounter Summary ---
:1940 Author Organization [facility] Address [address] [place] [address] Care Team Providers Name Role Phone Bobby Das MD Primary Care Provider Reason for Referral Laboratory Services (Routine) - Closed Specialty Diagnoses / Procedures Referred By Contact Refer red To Contact Diagnoses Malignant neoplasm of prostate ([facility] ([facility]) Aries Gutierrez III, Procedures PSA TOTAL, DIAGNOSTIC MD [address] [place] [phone] Referral ID Status Reason Start Date Expiration Date Visits Requ ested Visits Authorized [id number] Closed 07/11/2019 1 1 Encounter Details Date Type Department Care Team Description 01/08/2019 Documentation Visit [facility] Cancer Center Aries Gutierrez Malignant neoplasm Radiation Oncology Felix EAST MD of prostate - [address] ([facility]) (Primary [facility] Dx) [facility], [address] [place] [address] [address] Social History Tobacco Use Types [...] Diagnoses Diagnosis Malignant neoplasm of prostate ([facility]) (HCC) - Primary Malignant neoplasm of prostate documented in this encounter Care Teams Seedling Puller Relationship Specialty Start Date End Date Bobby Das MD PCP - General 07/06/[address] [place] [address],[address] [place] [address] documented as of this encounter
--- OUTSIDE RECORDS SUMMARY | 2022-06-28 11:14 | XMS_ITS | Encounter Summary ---
:[address] [facility] Address [address] [place] [address] Care Team Providers Name Role Phone Bobby Das MD Primary Care Provider Reason for Visit Reason Onset Date Comments Cancer 03/18/2018 Encounter Details Date Type Department Care Team Description 03/18/2018 Telephone [facility] Cancer Center Aries Gutierrez II, Cancer Radiation Oncology - [address] [address] [address], [place], [place] [address] (Wo rk) Social History Tobacco Use Types Packs/Day Years Used Date Current Every Day Smoker Smokeless Tobacco: Never Used Sex Assigned at Date Recorded Not on file documented as of this encounter Miscellaneous Notes Telephone Encounter - Delores Gutierrez III, MD - 03/18/2018 7513 EDT RADIATION ONCOLOGY Mr. Zamora called the office today specifically wondering if he needs to continue his androgen deprivation injections. He tells me he is due for his next injection later this month. He specifically states that he noted some bilateral upper arm aching type discomfort particularly increased with lifting close to when he started his injections. This occasionally involves his pectoral muscles bilaterally. This has been more problematic for him over the past 2 days after he tried to lift a very heavy object. He has no other associated symptoms and specifically denies dyspnea, fatigue, diaphoresis. He has a history of coronary artery disease and says this does not feel like prior issues he has had in the past. I told him that as he did have primary pattern 3 prostate cancer and was treated with an aggressive radiation regimen that it would be reasonable to hold his androgen deprivation after 4 months rather than continuing for a full 6. I will be in touch with Dr. José suggesting we discontinue his androgen deprivation and that he not have his next scheduled injection later this month. Sj Gutierrez MD Radiation Oncology [phone] (office) [phone] (pager) This note has been prepared with voice recognition software. Please excuse gas derrick operator errors. documented in this encounter Plan of Treatment Not on filedocumented as of this encounter Visit Diagnoses Not on filedocumented in this encounter Care Teams Four Horse Hitch Driver Relationship Specialty Start Date End Date Bobby Das MD PCP - General 07/06/[address] [place] [address] ,[address] [place] [phone] documented as of this encounter
--- OUTSIDE RECORDS SUMMARY | 2022-06-28 11:14 | XMS_ITS | Encounter Summary ---
:1940 Author Organization [facility] Address [address] [place] [address] Care Team Providers Name Role Phone Bobby Das MD Primary Care Provider Reason for Visit Reason Onset Date Comments Follow-up 02/24/2018 Appointment Related 02/24/2018 scheduled appt w/ nu rsing for Lupron injection on 04/06 Encounter Details Date Type Department Care Team Description 02/24/2018 Telephone [facility] Ama Corea, Follow -up; Appointment Urology - James campo RN Related (scheduled appt [address] [facility] w/ [place] [address] injection on 04/06) [phone] Social History Tobacco Use Types Packs/Day Years Used Date Current Every Day Smoker Smokeless Tobacco: Never Used Sex Assigned at Date Recorded Not on file documented as of this encounter Miscellaneous Notes Telephone Encounter - Mague Crisostomo - 02/25/2018 1044 EDT scheduled appt w/ nursing for Lupron injection on 04/06; pt prefers it at the [place] office Telephone Encounter - Ama Corea, RN [...] on filedocumented in this encounter Care Teams Corporate Pilot Relationship Specialty Start Date End Date Bobby Das MD PCP - General 07/06/[address] [place] [address],[address] [place] [address] documented as of this encounter
--- OUTSIDE RECORDS SUMMARY | 2022-06-28 11:14 | XMS_ITS | Encounter Summary ---
:1940 Author Organization [facility] Address [address] [place] [address] Care Team Providers Name Role Phone Bobby Das MD Primary Care Provider Encounter Details Date Type Department Care Team Description 04/12/2021 Lab Requisition [facility] Outr Resulting Lab, Pathology & Laboratory Provider [facility] [address] [place], [place] [address] Social History Tobacco Use Types Packs/Day Years [...] nature Testosterone 269 229 - 902 ng/dL [facility] Specimen Blood - Venous blood (substance) Narrative [facility] - 04/12/2021 22:19 EDT The results of this assay can be falsley elevated due to the consumption of Biotin. Performing Organization Address City/State/ZIP Code Phon e Number [facility] [address] [place] [address] SERVICES documented in this encounter Visit Diagnoses Not on filedocumented in this encounter Care Teams Senior Java J2Ee Developer Relationship Specialty Start Date End Date Bobby Das MD PCP - General 07/06/[address] [place] [address] ,[address] [place] [address] documented as of this encounter
--- OUTSIDE RECORDS SUMMARY | 2022-06-28 11:14 | XMS_ITS | Encounter Summary ---
:1940 Author Organization [facility] Address [address] [place] [address] Care Team Providers Name Role Phone Bobby Das MD Primary Care Provider Encounter Details Date Type Department Care Team Description 08/28/2020 Lab Requisition [facility] Outr Resulting Lab, Pathology & Laboratory Provider [facility] [address] [place], [place] [id number] Social History Tobacco Use Types Packs/Day Years [...] (08/28/2020 9:58 EDT) COVID-19 rt-PCR NEGATIVE Negative [facility] Result Comment: LABORATORY 2019-novel Coronavirus [...] Organization Address City/State/ZIP Code Phon e Number [facility] [place] COVID-19 TESTING (08/28/2020 9:58 EDT) Pathologist [facility] COVID-19 rt-PCR NEGATIVE Negative [facility] Result Comment: LABORATORY 2019-novel Coronavirus (2019 [...] Administration's Emergency Use Authorization. Performing Lab [facility] SERVICES Specimen Swab Performing Organization Address City/State/ZIP Code Phon e Number [facility] [address] [place] [address] SERVICES [facility] [place], [place] documented in this encounter Visit Diagnoses Not on filedocumented in this encounter Care Teams Ribbon Winder Relationship Specialty Start Date End Date Bobby Das MD PCP - General 07/06/[address] [place] [address] ,[address] [place] [address] documented as of this encounter
--- OUTSIDE RECORDS SUMMARY | 2022-06-28 11:14 | XMS_ITS | Encounter Summary ---
:1940 Author Organization [facility] Address [address] [place] [address] Care Team Providers Name Role Phone Bobby Das MD Primary Care Provider Encounter Details Date Type Department Care Team Description 08/03/2020 Lab Requisition [facility] Outr Resulting Lab, Pathology & Laboratory Provider [facility] [address] [place], [place] [id number] Social History Tobacco Use Types Packs/Day Years [...] (08/03/2020 12:22 EDT) COVID-19 rt-PCR NEGATIVE Negative [facility] Result Comment: LABORATORY 2019-novel Coronavirus (2019 [...] Address City/State/ZIP Code Phon e Number [facility] [place] COVID-19 TESTING (08/03/2020 12:22 EDT) Pathologist [facility] COVID-19 rt-PCR NEGATIVE Negative [facility] Result Comment: LABORATORY 2019-novel Coronavirus (2019 -nCoV) [...] Administration's Emergency Use Authorization. Performing Lab [facility] LABORATORY SERVICES Specimen Swab Performing Organization Address City/State/ZIP Code Phon e Number [facility] [address] [place] [address] SERVICES [facility] [place], [place] documented in this encounter Visit Diagnoses Not on filedocumented in this encounter Care Teams Street Photographer Relationship Specialty Start Date End Date Bobby Das MD PCP - General 07/06/[address] [place] [address] ,[address] [place] [address] documented as of this encounter
--- OUTSIDE RECORDS SUMMARY | 2022-06-28 11:14 | XMS_ITS | Encounter Summary ---
:1940 Author Organization [facility] Address [address] [place] [address] Care Team Providers Name Role Phone Bobby Das MD Primary Care Provider Encounter Details Date Type Department Care Team Description 03/04/2018 Documentation Visit [facility] Aries Gutierrez Radiation Oncology - III, [address] [address] [address], [place] [phone] (Wo rk) Social History Tobacco Use Types Packs/Day Years Used Date Current Every Day Smoker Smokeless Tobacco: Never Used Sex Assigned at Date Recorded Not on file documented as of this encounter Miscellaneous Notes Treatment Summary - Delores Gutierrez III, MD - 03/04/2018 1339 EDT Images from the original note were not included. RADIATION ONCOLOGY TREATMENT SUMMARY SITE, HISTOPATHOLOGY AND STAGE: [id number], PSA 12.8 Quinter score 3+4 = 7 adenocarcinoma prostate. He [...] Dr. José. Sj Gutierrez MD Radiation Oncology [phone] (office) [phone] (pager) This note has been prepared with voice recognition software. Please excuse hospital housekeeper errors. documented in this encounter Plan of Treatment Not on filedocumented as of this encounter Visit Diagnoses Not on filedocumented in this encounter Care Teams Prepper Relationship Specialty Start Date End Date Bobby Das MD PCP - General 07/06/[address] [place] [address],[address] [place] [address] documented as of this encounter
--- OUTSIDE RECORDS SUMMARY | 2022-06-28 11:14 | XMS_ITS | Encounter Summary ---
:1940 Author Organization [facility] Address [address] [place] [address] Care Team Providers Name Role Phone Bobby Das MD Primary Care Provider Reason for Visit Reason Comments Cancer Encounter Details Date Type Department Care Team Description 02/24/2018 Radiation Therapy [facility] Isela Law Ma lignant neoplasm of prostate (HCC-CMS) (Primary Dx); Visit Radiation Oncology - DION roldan deprivation therapy [facility] [place] [address] [place] [address] Social History Tobacco Use Types Packs/Day [...] Visit Diagnoses Diagnosis Malignant neoplasm of prostate ([facility]) (HCC) - Primary Malignant neoplasm of prostate Androgen deprivation therapy Encounter for therapeutic drug monitorin g documented in this encounter Care Teams Objects Conservator Relationship Specialty Start Date End Date Bobby Das MD PCP - General 07/06/[address] [place] [address] ,[address] [place] [address] documented as of this encounter
--- OUTSIDE RECORDS SUMMARY | 2022-06-28 11:14 | XMS_ITS | Encounter Summary ---
:1940 Author Organization [facility] Address [address] [place] [address] Care Team Providers Name Role Phone Abby Das MD Primary Care Provider Encounter Details Date Type Department Care Team Description 04/22/2018 Results Only [facility] Abby Das MD [phone] [place] [address],[address] [place], [place] [phone] (Wo rk) Social History Tobacco Use Types Packs/Day Years Used Date Current Every Day Smoker Smokeless Tobacco: Never Used Sex Assigned at Date Recorded Not on file documented as of this encounter Plan of Treatment Not on filedocumented as of this encounter Procedures Procedure Name Priority Date/Time Associated Diagnosis Comme [facility] SURGICAL PATHOLOGY Routine 04/22/2018 8:40 EDT Re sults for this procedure are i n the results section. documented in this encounter Results SURGICAL PATHOLOGY (04/22/2018 8:40 EDT) Pathology Report: SURGICAL PATHOLOGY REPORT [facility] Reports generated via electronic interface contain abram ginal data; LABORATORY however they are lacking the format of the original re port. SERVICES Caution should be taken when reading/interpreting unfo rmatted reports. Name: ? ETTA BAH ? Accession #: ? [id number] ? : ? 1940 (Age: 77) ??M [...] Organization Address City/State/ZIP Code Phon e Number [facility] [address] [place] [address] SERVICES documented in this encounter Visit Diagnoses Not on filedocumented in this encounter Care Teams Control Equipment Electrician Relationship Specialty Start Date End Date Abby Das MD PCP - General 07/06/[address] [place] [address] ,[address] [place] [address] documented as of this encounter
--- OUTSIDE RECORDS SUMMARY | 2022-06-28 11:14 | XMS_ITS | Encounter Summary ---
:1940 Author Organization [facility] Address [address] [place] [address] Care Team Providers Name Role Phone Bobby Das MD Primary Care Provider Reason for Visit Reason Onset Date Comments Appointment Related 03/19/2018 Encounter Details Date Type Department Care Team Description 03/19/2018 Telephone [facility] Dominique Mirza, [place] ointment Related Urology - James campo RN [address] [place] [address] Social History Tobacco Use Types [...] there. ill plan to see him at [facility]. Tc to pt to advise he contact [facility] and be sure appt has been scheduled [...] so, can the pt be seen at [facility] as originally suggested in 's 01/05 progress note. Will call patient to let him know if he needs to f/u with and if so, can he be seen at [facility]. documented in this encounter Plan of Treatment Not on filedocumented as of this encounter Visit Diagnoses Not on filedocumented in this encounter Care Teams Metal Stud Framer Relationship Specialty Start Date End Date Bobby Das MD PCP - General 07/06/[address] [place] [address],[address] [place] [address] documented as of this encounter
--- OUTSIDE RECORDS SUMMARY | 2022-06-28 11:14 | XMS_ITS | Encounter Summary ---
:1940 Author Organization [facility] Address [address] [place] [address] Care Team Providers Name Role Phone Bobby Das MD Primary Care Provider Encounter Details Date Type Department Care Team Description 07/16/2019 Phlebotomy Only [facility] Patient Resource Specialist, Eboni barbosa neoplasm - [facility] Outpatient of prostate [address] [facility] ([facility]) (Primary [place], [place] Dx) [address] Social History Tobacco Use [...] DIAGNOSTIC of prostate procedure are i n ([facility]) the results section. documented in this encounter Results PSA TOTAL, DIAGNOSTIC (07/16/2019 9:30 EDT) PSA 0.1 0 - 6.5 ng/ml [facility] Comment: LABORATORY SERVICES Serum PSA concentration should not be interpreted as absolute evidence for the presence or absence of malignant disease. Assayed utilizing Siemens (FiPath) chemiluminescent technology. ??Values obtained by using different assay methods cannot be used interchangeably. Specimen Blood specimen (specimen) - Blood Performing Organization Address City/State/ZIP Code Phon e Number [facility] [address] [place] [address] SERVICES documented in this encounter Visit Diagnoses Diagnosis Malignant neoplasm of prostate ([facility]) (HCC) - Primary Malignant neoplasm of prostate documented in this encounter Orders Lab Orders Without Results Count Last Ordered Date st Ordered Date PSA TOTAL, DIAGNOSTIC 1 07/16/2019 documented in this encounter Care Teams Ui Software Engineer Relationship Specialty Start Date End Date Bobby Das MD PCP - General 07/06/[address] [place] [address],[address] [place] [address] documented as of this encounter
--- OUTSIDE RECORDS SUMMARY | 2022-06-28 11:14 | XMS_ITS | Encounter Summary ---
:1940 Author Organization [facility] Address [address] [place] [address] Care Team Providers Name Role Phone Bobby Das MD Primary Care Provider Reason for Visit Reason Comments Prostate Cancer Follow up Encounter Details Date Type Department Care Team Description 07/16/2019 Office Visit [facility] Aries Gutierrez neoplasm of Radiation Oncology - Felix EAST MD prostate ([facility] [address] (Primary Dx) [address] [place] [id number] [place] [address], [place] [phone] [facility] [address] [place] [address] (Wo rk) Social History Tobacco [...] DATE OF SERVICE: 07/16/2019 DIAGNOSIS AND STAGE: [id number], PSA 12.8 Winifred score 3+4 = 7 [...] this point. He is being evaluated at [facility] next week for possible tuboplasty. With [...] prepared with voice recognition software. Please excuse instructional assistant errors. documented in this encounter Plan [...] ORAL) added in this encounter Care Teams Residential Director Relationship Specialty Start Date End Date Bobby Das MD PCP - General 07/06/[address] [place] [address],[address] [place] [address] documented as of this encounter
--- OUTSIDE RECORDS SUMMARY | 2022-06-28 11:14 | XMS_ITS | Encounter Summary ---
:1940 Author Organization [facility] Address [address] [place] [address] Care Team Providers Name Role Phone Bobby Das MD Primary Care Provider Reason for Visit Reason Comments Cancer Encounter Details Date Type Department Care Team Description 02/27/2018 Radiation Therapy [facility] Letty Gaitan RN Malignant neoplasm Visit Radiation Oncology [address] [place] [address] ([facility]) (Primary [address] [place], [place] Dx) [place] [phone] Social History Tobacco Use Types Packs/Day Years [...] encounter diagnosis was Malignant neoplasm of prostate ([facility]). Assessment: Assessment Completed By: Janae Gaitan [...] prostate documented in this encounter Care Teams Corrective Therapy Aide Teacher Relationship Specialty Start Date End Date Bobby Das MD PCP - General 07/06/[address] [place] [address] ,[address] [place] [address] documented as of this encounter
--- OUTSIDE RECORDS SUMMARY | 2022-06-28 11:14 | XMS_ITS | Encounter Summary ---
:1940 Author Organization [facility] Address [address] [place] [address] Care Team Providers Name Role Phone Bobby Das MD Primary Care Provider Encounter Details Date Type Department Care Team Description 01/08/2019 Orders Only [facility] [place] Aries Gutierrez neoplasm of Radiation Oncology - Felix EAST MD prostate ([facility]) [address] (Primary Dx) [address] [place] [address] [facility] [phone] [facility] [address] [place] [address] (Wo rk) Social History Tobacco Use Types Packs/Day Years Used Date Current Every Day Smoker Smokeless Tobacco: Never Used Sex Assigned at Date Recorded Not on file documented as of this encounter Plan of Treatment Not on filedocumented as of this encounter Results PSA TOTAL, DIAGNOSTIC (07/16/2019 9:30 EDT) PSA 0.1 0 - 6.5 ng/ml [facility] Comment: LABORATORY SERVICES Serum PSA concentration should not be interpreted as absolute evidence for the presence or absence of malignant disease. Assayed utilizing Siemens (Efficient Frontier) chemiluminescent technology. ??Values obtained by using different assay methods cannot be used interchangeably. Specimen Blood specimen (specimen) - Blood Performing Organization Address City/State/ZIP Code Phon e Number [facility] [address] [place] [address] SERVICES documented in this encounter Visit Diagnoses Diagnosis Malignant neoplasm of prostate ([facility]) (HCC) - Primary Malignant neoplasm of prostate documented in this encounter Care Teams Petroleum Supply Specialist Relationship Specialty Start Date End Date Bobby Das MD PCP - General 07/06/[address] [place] [address],[address] [place] [phone] documented as of this encounter
--- OUTSIDE RECORDS SUMMARY | 2022-06-28 11:14 | XMS_ITS | Encounter Summary ---
:1940 Author Organization [facility] Address [address] [place] [address] Care Team Providers Name Role Phone Bobby Das MD Primary Care Provider Encounter Details Date Type Department Care Team Description 07/16/2019 Hospital Encounter [facility] - Dayne Gutierrez [facility] III, MD [id number] [place] [address] [facility] [address] [place] [address] (Wo rk) Social History Tobacco [...] on filedocumented in this encounter Care Teams Supervisor Network Control Operators Relationship Specialty Start Date End Date Bobby Das MD PCP - General 07/06/[address] [place] [address] ,[address] [place] [address] documented as of this encounter
--- OUTSIDE RECORDS SUMMARY | 2022-06-28 11:14 | XMS_ITS | Encounter Summary ---
:1940 Author Organization [facility] Address [address] [place] [address] Care Team Providers Name Role Phone Bobby Das MD Primary Care Provider Reason for Visit Reason Comments Other Encounter Details Date Type Department Care Team Description 03/04/2019 Refill [facility] Radiation Adelfo Gutierrez ld Felix III, Other Oncology - Main [facility] [address] [place] [id number] [place] [address] [facility] [address] [place], [place] [address] (Wo rk) Social History [...] documented as of this encounter Care Teams Rolled Ham Lacer Relationship Specialty Start Date End Date Bobby Das MD PCP - General 07/06/[address] [place] [address],[address] [place] [address] documented as of this encounter
--- OUTSIDE RECORDS SUMMARY | 2022-06-28 11:14 | XMS_ITS | Encounter Summary ---
:1940 Author Organization [facility] Address [address] [place] [address] Care Team Providers Name Role Phone Bobby aDs MD Primary Care Provider Encounter Details Date Type Department Care Team Description 02/25/2018 Documentation Visit [facility] Admaa Vargas RN Radiation Oncology - [address] [place] [address] [place] [address] Social History Tobacco Use Types Packs/Day Years Used Date Current Every Day Smoker Smokeless Tobacco: Never Used Sex Assigned at Date Recorded Not on file documented as of this encounter Progress Notes Lynn Vargas RN - 02/25/2018 9953 EDT Koko Zamora requested to be seen [...] on filedocumented in this encounter Care Teams Environmental Quality Analyst Relationship Specialty Start Date End Date Bobby Das MD PCP - General 07/06/[address] [place] [address],[address] [place] [address] documented as of this encounter
--- OUTSIDE RECORDS SUMMARY | 2022-06-28 11:15 | XMS_ITS | Encounter Summary ---
:1940 Author Organization [facility] Address [address] [place] [address] Care Team Providers Name Role Phone Bobby Das MD Primary Care Provider Encounter Details Date Type Department Care Team Description 02/08/2018 Hospital Encounter [facility] Aries Gutierrez Radiation Oncology - III, [facility] 111 [facility] [address] [place] [address] [address], [place] [address] (Wo rk) Social History Tobacco Use Types [...] Code Departure Means Destination Home or Self Prison documented in this encounter Plan of Treatment Not on filedocumented as of this encounter Visit Diagnoses Not on filedocumented in this encounter Care Teams Server Administrator Relationship Specialty Start Date End Date Bobby Das MD PCP - General 07/06/[address] [place] [address],[address] [place] [phone] documented as of this encounter
--- OUTSIDE RECORDS SUMMARY | 2022-06-28 11:15 | XMS_ITS | Encounter Summary ---
:1940 Author Organization [facility] Address [address] [place] [address] Care Team Providers Name Role Phone Bobby Das MD Primary Care Provider Encounter Details Date Type Department Care Team Description 01/08/2018 Hospital Encounter [facility] Aries Gutierrez Radiation Oncology - III, [facility] [address] [address] [address], [place] [phone] (Wo rk) Social History Tobacco Use Types [...] Code Departure Means Destination Home or Self Usp documented in this encounter Plan of Treatment Not on filedocumented as of this encounter Visit Diagnoses Not on filedocumented in this encounter Care Teams Performance Reporter Relationship Specialty Start Date End Date Bobby Das MD PCP - General 07/06/[address] [place] [address],[address] [place] [address] documented as of this encounter
--- OUTSIDE RECORDS SUMMARY | 2022-06-28 11:15 | XMS_ITS | Encounter Summary ---
:1940 Author Organization [facility] Address [address] [place] [address] Care Team Providers Name Role Phone Bobby Das MD Primary Care Provider Reason for Visit Reason Onset Date Comments Medication Management 11/21/2017 Encounter Details Date Type Department Care Team Description 11/21/2017 Orders Only [facility] Radiation De Law RN Oncology - [address] [phone] Social History Tobacco Use Types Packs/Day Years [...] on filedocumented in this encounter Care Teams Superintendent Seed Mill Relationship Specialty Start Date End Date Bobby Das MD PCP - General 07/06/[address] [place] [address] ,[address] [place] [phone] documented as of this encounter
--- OUTSIDE RECORDS SUMMARY | 2022-06-28 11:15 | XMS_ITS | Encounter Summary ---
:1940 Author Organization [facility] Address [address] [place] [address] Care Team Providers Name Role Phone Bobby Das MD Primary Care Provider Encounter Details Date Type Department Care Team Description 01/16/2018 Documentation Visit [facility] Santhosh Cosby Radiation Oncology - Main [address] [phone] Social History Tobacco Use Types Packs/Day Years Used Date Current Every Day Smoker Smokeless Tobacco: Never Used Sex Assigned at Date Recorded Not on file documented as of this encounter Progress Notes Santhosh Cosby - 01/16/2018 0560 EST SOCIAL WORK ASSESSMENT: Amount of Distress: 0 Practical Problems: None Family Problems: None Emotional Problems: None Physical Problems: None Spiritual/Hindu Concerns: No Other Problems: Social Work Assessment: [...] Prostate Cancer Living Arrangements: Pt lives in [place], [place] with his . They operate a [...] social work as needed. ASH Antonio phone [phone] pager [phone] documented in this encounter Plan of Treatment Not on filedocumented as of this encounter Visit Diagnoses Not on filedocumented in this encounter Care Teams Teachers' Assistant Relationship Specialty Start Date End Date Bobby Das MD PCP - General 07/06/[address] [place] [address],[address] [place] [phone] documented as of this encounter
--- OUTSIDE RECORDS SUMMARY | 2022-06-28 11:15 | XMS_ITS | Encounter Summary ---
:1940 Author Organization [facility] Address [address] [place] [address] Care Team Providers Name Role Phone Bobby Das MD Primary Care Provider Encounter Details Date Type Department Care Team Description 10/29/2017 Hospital Encounter [facility]- Devi Unknown, Provider, [facility] [address] [facility] [phone] [place] [address] (Work) [phone] Social History Tobacco Use Types Packs/Day Years Used Date Never Assessed Sex Assigned at Date Recorded Not on file documented as of this encounter Discharge Disposition Disposition Code Departure Means Destination Home or Self Snf documented in this encounter Plan of Treatment Not on filedocumented as of this encounter Visit Diagnoses Not on filedocumented in this encounter Care Teams Rn Or Lpn Relationship Specialty Start Date End Date Bobby Das MD PCP - General 07/06/[address] [place] [address],[address] [place] [phone] documented as of this encounter
--- OUTSIDE RECORDS SUMMARY | 2022-06-28 11:15 | XMS_ITS | Encounter Summary ---
:1940 Author Organization [facility] Address [address] [place] [address] Care Team Providers Name Role Phone Unknown, Provider Primary Care Provider Encounter Details Date Type Department Care Team Description 07/03/2015 Hospital Encounter [facility]- Devi Unknown, Provider, [facility] [phone] [place] [address] (Work) [phone] Social History Tobacco Use Types Packs/Day Years Used Date Never Assessed Sex Assigned at Date Recorded Not on file documented as of this encounter Discharge Disposition Disposition Code Departure Means Destination Home or Self [facility] documented in this encounter Plan of Treatment Not on filedocumented as of this encounter Visit Diagnoses Not on filedocumented in this encounter Care Teams Collections Representative Relationship Specialty Start Date End Date Unknown, Provider, PCP - General 07/03/15 07/05/15 documented as of this encounter
--- OUTSIDE RECORDS SUMMARY | 2022-06-28 11:15 | XMS_ITS | Encounter Summary ---
:[address] [facility] Address [address] [place] [address] Care Team Providers Name Role Phone Bobby Das MD Primary Care Provider Reason for Visit Reason Comments Cancer Encounter Details Date Type Department Care Team Description 01/08/2018 Radiation Therapy [facility] Isela Law Ma lignant neoplasm of Visit Radiation Oncology - RN prostat e ([facility] Main [place] ([facility]) (Primary [address] [facility]) [place] [address] Social History Tobacco Use Types [...] prostate documented in this encounter Care Teams Head Butler Relationship Specialty Start Date End Date Bobby Das MD PCP - General 07/06/[address] [place] [address],[address] [place] [phone] documented as of this encounter
--- OUTSIDE RECORDS SUMMARY | 2022-06-28 11:15 | XMS_ITS | Encounter Summary ---
:1940 Author Organization [facility] Address [address] [place] [address] Care Team Providers Name Role Phone Bobby Das MD Primary Care Provider Reason for Visit Reason Onset Date Comments Follow-up 01/12/2018 Encounter Details Date Type Department Care Team Description 01/12/2018 Telephone [facility] Radiation De Law RN Follow-up Oncology - [address] [address] Social History Tobacco Use Types Packs/Day Years Used Date Current Every Day Smoker Smokeless Tobacco: Never Used Sex Assigned at Date Recorded Not on file documented as of this encounter Miscellaneous Notes Telephone Encounter - Isela Law RN - 01/12/2018 8753 EST This is a planned post procedure [...] on filedocumented in this encounter Care Teams Activity Therapist Relationship Specialty Start Date End Date Bobby Das MD PCP - General 07/06/[address] [place] [address],[address] [place] [address] documented as of this encounter
--- OUTSIDE RECORDS SUMMARY | 2022-06-28 11:15 | XMS_ITS | Encounter Summary ---
:1940 Author Organization [facility] Address [address] [place] [address] Care Team Providers Name Role Phone Bobby Das MD Primary Care Provider Reason for Visit Reason Onset Date Comments Medication Management 02/16/2018 Encounter Details Date Type Department Care Team Description 02/16/2018 Orders Only [facility] Radiation De Law tobacco conditioner - [address] [phone] Social History Tobacco Use Types Packs/Day Years [...] on filedocumented in this encounter Care Teams Creative Arts Music Therapist Relationship Specialty Start Date End Date Bobby Das MD PCP - General 07/06/[address] [place] [address],[address] [place] [address] documented as of this encounter
--- OUTSIDE RECORDS SUMMARY | 2022-06-28 11:15 | XMS_ITS | Encounter Summary ---
:1940 Author Organization [facility] Address [address] [place] [address] Care Team Providers Name Role Phone Bobby Das MD Primary Care Provider Encounter Details Date Type Department Care Team Description 01/08/2018 Procedure visit [facility] Aries Gutierrez Radiation Oncology - IIIMD [address] [address] [address], [place] [phone] (Wo rk) Social History Tobacco Use Types [...] prostate gland. DATE OF SERVICE: 01/08/2018 INDICATIONS: [id number], PSA 12.8 Winifred score 3+4 = 7 [...] documented as of this encounter Care Teams Internal Recruiter Relationship Specialty Start Date End Date Bobby Das MD PCP - General 07/06/[address] [place] [address] ,[address] [place] [address] documented as of this encounter
--- OUTSIDE RECORDS SUMMARY | 2022-06-28 11:15 | XMS_ITS | Encounter Summary ---
:1940 Author Organization [facility] Address [address] [place] [address] Care Team Providers Name Role Phone Bobby Das MD Primary Care Provider Reason for Visit Reason Onset Date Comments Cancer 02/16/2018 Encounter Details Date Type Department Care Team Description 02/16/2018 Orders Only [facility] Isela Law Maligna nt neoplasm of prostate (HCC-CMS) (Primary Dx); Radiation Oncology - RN Andvamshi n deprivation therapy [address] [address] Social History Tobacco Use Types Packs/Day Years [...] g documented in this encounter Care Teams Operating Room Coordinator Relationship Specialty Start Date End Date Bobby Das MD PCP - General 07/06/[address] [place] [address] ,[address] [place] [address] documented as of this encounter
--- OUTSIDE RECORDS SUMMARY | 2022-06-28 11:15 | XMS_ITS | Encounter Summary ---
:1940 Author Organization [facility] Address [address] [place] [address] Care Team Providers Name Role Phone Unknown, Provider Primary Care Provider Encounter Details Date Type Department Care Team Description 07/03/2015 Results Only [facility] Abby Das MD [phone] [place] [address],[address] [place], [place] [phone] (Wo rk) Social History Tobacco Use Types Packs/Day Years Used Date Never Assessed Sex Assigned at Date Recorded Not on file documented as of this encounter Plan of Treatment Not on filedocumented as of this encounter Procedures Procedure Name Priority Date/Time Associated Diagnosis Comme [facility] SURGICAL PATHOLOGY Routine 07/03/2015 8:54 EDT Re sults for this procedure are i n the results section. documented in this encounter Results SURGICAL PATHOLOGY (07/03/2015 8:54 EDT) Pathology Report: SURGICAL PATHOLOGY REPORT [facility] Reports generated via electronic interface contain abram ginal data; LABORATORY however they are lacking the format of the original re port. SERVICES Caution should be taken when reading/interpreting unfo rmatted reports. Name: ? ETTA BAH ? Accession #: ? [id number] ? : ? 1940 (Age: 74) ??M ? Collect Date: ? 07/03/2015 ? Location: ? [facility] ? Receive Date: ? 07/04/20 15 ? Provider: ABBY DAS MD Copy to: ? Final Pathologic Diagnosis: SKIN OF ANABAPTISM, RIGHT, EXCISION: - Basal cell carcinoma, infiltrative type. ??See comme nt. - Perineural invasion identified. - Margins of excision positive. ??- Lesion extends to peripheral and deep margins of excision specimen. Comment: These results were phoned to Dr. Das's office. ?? (Dr. oMrris)/jamar Document reviewed and electronically signed by: MARYCARMEN MORRIS MD Report ??Date: 07/05/2015 14:52 By the signature above, the attending physician certif ies that he/she has personally conducted a gross and/or microscopic examin ation of the described specimens and rendered or confirmed the above diagnosi s. Specimen(s) Received: R rastafarian Clinical History: Basal cell carcinoma reexcision Gross [...] Organization Address City/State/ZIP Code Phon e Number [facility] [address] [place] [address] SERVICES documented in this encounter Visit Diagnoses Not on filedocumented in this encounter Care Teams Dining Services Manager Relationship Specialty Start Date End Date Unknown, Provider, PCP - General 07/03/15 07/05/15 documented as of this encounter
--- OUTSIDE RECORDS SUMMARY | 2022-06-28 11:15 | XMS_ITS | Encounter Summary ---
:1940 Author Organization [facility] Address [address] [place] [address] Care Team Providers Name Role Phone Bobby Das MD Primary Care Provider Reason for Visit Reason Comments Prostate Cancer Encounter Details Date Type Department Care Team Description 11/19/2017 Office Visit [facility] Aries Gutierrez neoplasm of Radiation Oncology - Felix EAST MD prostate ([facility]) Main [address] ([facility]) (Primary [address] [facility] [address]) [place], [place] [phone] [place] [address] [facility] [address] [place] [address] (Wo rk) Social History Tobacco Use Types Packs/Day Years Used Date Current Every Day Smoker Smokeless Tobacco: Never Used Tobacco Cessation: Counseling Given: Yes Sex Assigned at Date Recorded Not on file documented as of this encounter Last Filed Vital Signs Vital Sign Reading Time Taken Comments Blood Pressure 120/56 11/19/2017 1124 EST Pulse 78 11/19/2017 1124 EST Temperature 36.1 ??C (96.9 ??F) 11/19/2017 1124 EST Respiratory Rate - - Oxygen Saturation 96% 11/19/2017 1124 EST Inhaled Oxygen Concentration - - Weight 83.5 kg (184 lb) 11/19/2017 1124 EST Height 172.5 cm (5' 7.91) 11/19/2017 1124 EST Body Mass Index 28.05 11/19/2017 1124 EST documented in this encounter Discharge Diagnoses Diagnosis C61 Malignant neoplasm of prostate-C61[I CD-10-CM] documented in this encounter Discharge Disposition Disposition Code Departure Means Destination Auto Discharge documented in this encounter Progress Notes Delores Gutierrez III, MD - 11/19/2017 1100 EST Division of Radiation Oncology CONSULT NOTE DATE OF SERVICE: 11/19/2017 This patient is being seen as a consultation from Dr. José. Primary Site, Histopathology and Stage: [id number], PSA 12.8 Creighton score 3+4 = 7 adenocarcinoma of the prostate. HPI: Mr. Zamora is an otherwise healthy 77-year-old man who was noted to have an elevated PSA of 12.8 on August 20, 2017. Dr. José noted a nodule on the right side of the gland. He underwent transrectal ultrasound-guided biopsies on October 29, 2017. The prostate by was estimated at 47 cm??. On pathologic review he had 2/12 core biopsies with evidence of tumor, Winifred score 3+3 disease at the left base, Creighton score 3+4 disease at the left apex, he had ANDREINA/pin in another core biopsy from the left apex. His pathology was reviewed here at [facility] which was confirmatory.A bone scan is planned for tomorrow. He states that he has had no recent change in his baseline urinary symptoms, his IPSS is 15. He doeshave erectile dysfunction. He has no localizing bone pain. His appetite and energy are good. I have been asked to see him in consultation and discussed with him the potential role of radiation therapy in his disease. Overall problems with urinary function: Small problem Describe urinary control: Total control - 0 Pads/adult diapers used daily for urinary leakage: None - 0 Problems with urinary dripping/leakage: No problem - 0 Urinary Incontinence Symptom Score: 0 Pain or burning with urination: No problem - 0 Weak urine stream/incomplete bladder emptying: Small problem - 2 Need to urinate frequently: Small problem - 2 Urinary Irritation/Obstruction Symptom Score: 4 Rectal pain/urgency of bowel movements: No problem - 0 Increased frequency of bowel movements: No problem - 0 Overall problems with bowel habits: No problem - 0 Bowel Symptom Score: 0 Ability to reach orgasm (climax): Fair - 2 Describe usual quality of erections: Firm enough for masturbation and foreplay only - 1 Problems or lack of sexual function: Very small problem - 1 Sexual Symptom Score : 4 Hot flashes or breast tenderness/enlargement: No problem - 0 Feeling depressed: No problem - 0 Lack of energy: No problem - 0 Vitality/Hormonal Symptom Score: 0 Total EPIC-CP score - 8 Past Medical History: Diagnosis Date ??? Cancer (CMS-HCC) ??? Hyperlipidemia No past surgical history on file. Social History: He is and lives in [facility]. 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 Smoking status: Current Every Day Smoker ??? Smokeless tobacco: Never Used ??? Alcohol use Not on file Family History Problem Relation Age of Onset ??? Lung Cancer Father ??? Cancer Maternal Grandfather Current Outpatient Prescriptions Medication Sig Dispense Refill ??? ascorbic acid, vitamin C, (VITAMIN C) 500 mg tablet Take 500 mg by mouth daily. ??? FLUTICASONE PROPIONATE (FLONASE NASAL) by nasal route as needed. ??? multivitamin (THERAGRAN) per tablet Take 1 Tab by mouth daily. ??? rosuvastatin (CRESTOR) 40 mg tablet Take 40 mg by mouth daily. No current facility-administered medications for this visit. Allergies Allergen Reactions ??? Aspirin Other (See Comments) Upset stomach Review of Systems Reviewed in detail on our intake sheet today. He has no pertinent positives on extensive review of systems other than as described above. Objective: Pulse: 78 Temp: 36.1 ??C (96.9 ??F) Weight : 83.5 kg (184 lb) Pain Score: 0 - No pain General: Very pleasant and cooperative man in no acute distress. HEENT: Unremarkable. Neck: Supple. Nodes: No palpable cervical, supra-clavicular or axillary adenopathy. Back: Nontender to percussion. Lungs: Clear to auscultation. Heart: Regular rhythm. Abdomen: Soft nontender with normal active bowelsounds. No palpable masses organomegaly. Extremities: Without edema. Rectal: Normal sphincter tone. There is some nodularity in the right side of the gland. Performance Status: 0 Assessment: I reviewed for Mr. Zamora as well as his accompanied him today in great detail potential options for therapy for individuals with intermediate risk prostate cancer. Interestingly he has relatively small volume primary pattern 3 disease however a PSA of greater than 10 suggesting that his tumor is at the cusp between favorable and unfavorable intermediate risk disease. We reviewed the availabledata regarding potential risks of extracapsular extension and shirin involvement of disease, he understands my recommendations are related to these risks. I described the potential role of definitive external beam radiation therapy utilizing intensity modulated and image guided techniques.A standard course of treatment lasting approximately 8 weeks, withpotential side effects including, in the short term, skin erythema, hair loss in the treatment field, fatigue, decreased blood cell count, as well as bowel and bladder irritative symptoms were described and put in perspective. Potential longer term complications including permanent bowel and bladder injury, radiation proctitis, urethral stricture and the implications of any treatment on erectile function were all described and put in perspective. I reviewed with him the more recent data based on theHiP trial that reveals it 5 years individuals treated with a 4 week rather than an 8 one half weeks' course have equivalent results with respect to disease control and toxicities. The limitations of five-year follow-up in the setting of prostate cancer were described. I told him that it is very reasonable to proceed either with 4 or 8-1/2 weeks' depending on his preference, travel distance or otherfactors. The potential role of prostate seed brachytherapy was discussed. As he has a moderate risk of extracapsular extension we discussed the role of external beam radiation therapy in combination with prostate seed brachytherapy as a boost. The process of brachytherapy including utilization of transrectal ultrasound findings to develop a three-dimensional model of the prostate gland for treatment planning was described. The likelihood of postoperative discomfort, difficulty urination and the high likelihood of delayed increased urinary symptomatology typically 1-6 months after the implant was described. The potential for significant urinary outflow symptomatology requiring temporary urinary catheterization was discussed. The potential long-term side effects of brachytherapy including urethral stricture, rectal bleeding/radiation proctitis, hematuria and erectile dysfunction were described. The unlikely but occasionally seen development of fistulas requiring surgical intervention was also described. The potential role of androgen deprivation dependent on tumor grade, volume and PSA was also described. Potential side effects of androgen deprivation including hot flashes, loss of libido in the longer-term the potential of metabolic effects including changing body fat distribution, loss of muscle mass, osteoporosis as well as the less likely but serious complications associated with androgen deprivation including risk of heart attack and stroke were also discussed. I told him the relative advantages of androgen deprivation must be weighed against the potential risks and is individualized based onknown risk factors of tumor progression. I told him with a PSA of greater than 10 in the setting I typically do recommend a short course of androgen deprivation although potential long-term benefit from doing so is of modest proportions and I told him it would be reasonable to treat him without this if he strongly desired. Recommendation: Dr. José has ordered a bone scan which will be done at [facility] tomorrow. Once that result is available I will be in touch with Mr. Zamora to discuss next steps. Most likely we would initiate a brief (4 month) course of androgen deprivation and have him return for fiducial marker placement and treatment planning simulation with appropriate timing to initiate his radiation 2 months after his first injection. I spent a total of 75 minutes in face to face time with this patient today and 60 minutes of that time was spent in counseling and coordination of care as described in the progress note. Delores Gutierrez III, MD This note has been prepared with voice recognition software. Please excuse yeast pusher errors documented in this encounter Plan of Treatment [...] (VITAMIN C) 500 mg tablet mouth daily. added in this encounter Care Teams Receptionist Scheduler Relationship Specialty Start Date End Date Bobby Das MD PCP - General 07/06/[address] [place] [address] ,[address] [place] [phone] documented as of this encounter
--- OUTSIDE RECORDS SUMMARY | 2022-06-28 11:15 | XMS_ITS | Encounter Summary ---
:1940 Author Organization [facility] Address [address] [place] [address] Care Team Providers Name Role Phone Bobby Das MD Primary Care Provider Reason for Visit Reason Onset Date Comments Prostate Cancer 11/20/2017 Encounter Details Date Type Department Care Team Description 11/20/2017 Orders Only [facility] Aries Gutierrez Radiation Oncology - [facility], [address] [address] [address], [place], [place] [address] (Wo rk) Social History Tobacco Use Types [...] on filedocumented in this encounter Care Teams Field Service Specialist Relationship Specialty Start Date End Date Bobby Das MD PCP - General 07/06/[address] [place] [address] ,[address] [place] [address] documented as of this encounter
--- OUTSIDE RECORDS SUMMARY | 2022-06-28 11:15 | XMS_ITS | Encounter Summary ---
:1940 Author Organization [facility] Address [address] [place] [address] Care Team Providers Name Role Phone Bobby Das MD Primary Care Provider Encounter Details Date Type Department Care Team Description 01/16/2018 Results Only [facility] Cancer Center Aries Gutierrez Imaging Radiation Oncology - III, [facility] [address] [facility] [address] [place] [address] [address], [place] [address] (Wo rk) Social History Tobacco Use Types Packs/Day Years Used Date Current Every Day Smoker Smokeless Tobacco: Never Used Sex Assigned at Date Recorded Not on file documented as of this encounter Plan of Treatment Pending Results Name Type Priority Associated Diagnoses Date/Ti me OUTSIDE IMAGES - CT CHEST Imaging 8:51 EST documented as of this encounter Visit Diagnoses Not on filedocumented in this encounter Care Teams Public Policy Associate Relationship Specialty Start Date End Date Bobby Das MD PCP - General 07/06/[address] [place] [address] ,[address] [place] [address] documented as of this encounter
--- OUTSIDE RECORDS SUMMARY | 2022-06-28 11:15 | XMS_ITS | Encounter Summary ---
:[address] [facility] Address [address] [place] [address] Care Team Providers Name Role Phone Bobby Das MD Primary Care Provider Reason for Visit Reason Comments Cancer Encounter Details Date Type Department Care Team Description 02/16/2018 Radiation Therapy [facility] Isela Law Ma lignant neoplasm of Visit Radiation Oncology - RN prostleonid e ([facility]) Main [place] (Primary Dx) [address] [place] [address] Social History Tobacco Use Types Packs/Day [...] encounter diagnosis was Malignant neoplasm of prostate ([facility]). Assessment: Assessment Completed By: Isela [...] prostate documented in this encounter Care Teams Electrician Office Relationship Specialty Start Date End Date Bobby Das MD PCP - General 07/06/[address] [place] [address],[address] [place] [address] documented as of this encounter
--- OUTSIDE RECORDS SUMMARY | 2022-06-28 11:15 | XMS_ITS | Encounter Summary ---
:1940 Author Organization [facility] Address [address] [place] [address] Care Team Providers Name Role Phone Bobby Das MD Primary Care Provider Reason for Visit Reason Onset Date Comments Prostate Cancer 11/20/2017 Encounter Details Date Type Department Care Team Description 11/20/2017 Telephone [facility] Aries Gutierrez Cancer Radiation Oncology - III, [address] [address] [address], [place] [address] (Wo rk) Social History Tobacco Use Types Packs/Day Years Used Date Current Every Day Smoker Smokeless Tobacco: Never Used Sex Assigned at Date Recorded Not on file documented as of this encounter Miscellaneous Notes Telephone Encounter - Delores Gutierrez III, MD - 11/20/2017 4207 EST RADIATION ONCOLOGY I spoke with Mr. Zamora by phone today. [facility] earlier todayreveals no evidence of metastatic disease. He is eager to start therapy. I discussed his care with Dr. José. We will coordinate initiation of androgen deprivation as soon as practical. He will return for fiducial marker placement in approximately 6 weeks, anticipate we will start his treatment approximately 2 months after his first injection. Sj Gutierrez MD Radiation Oncology [phone] (office) [phone] (pager) This note has been prepared with voice recognition software. Please excuse painter tumbling barrel errors. documented in this encounter Plan of Treatment Not on filedocumented as of this encounter Visit Diagnoses Diagnosis Malignant neoplasm of prostate (HCC-CMS) (HCC) - Primary Malignant neoplasm of prostate documented in this encounter Care Teams Plate Fitter Relationship Specialty Start Date End Date Bobby Das MD PCP - General 07/06/[address] [place] [address],[address] [place] [address] documented as of this encounter
--- OUTSIDE RECORDS SUMMARY | 2022-06-28 11:15 | XMS_ITS | Encounter Summary ---
:1940 Author Organization [facility] Address [address] [place] [address] Care Team Providers Name Role Phone Bobby Das MD Primary Care Provider Reason for Visit Reason Comments Follow-up Encounter Details Date Type Department Care Team Description 12/02/2017 Office Visit [facility] Erlin José MD Malignant neoplasm of Urology - [address] ([facility] (Primary 111 [facility] [place] [address] [address], [place] [address] (Wo rk) Social History Tobacco [...] Progress Notes Chino José MD - 12/02/2017 4495 EST Chief Complaint: Chief Complaint Patient presents with ??? Follow-up HPI: Koko is a 77 y.o. male with prostate cancer. I originally saw the patient and [facility] and diagnosed him with [place] 3+4 prostate cancer associated with a PSA of 12.8. He underwent a bone scan for staging that came back negative for metastatic disease. He is seeing me today at [facility] for a Lupron injection. He started [...] ( desire to have sex ). Some roasterman hormonal therapy is associated with the loss [...] 12/02 documented in this encounter Care Teams Rhythmic Gymnastics Coach Relationship Specialty Start Date End Date Bobby Das MD PCP - General 07/06/[address] [place] [address],[address] [place] [address] documented as of this encounter
--- OUTSIDE RECORDS SUMMARY | 2022-06-28 11:15 | XMS_ITS | Encounter Summary ---
:1940 Author Organization [facility] Address [address] [place] [address] Care Team Providers Name Role Phone Bobby Das MD Primary Care Provider Encounter Details Date Type Department Care Team Description 11/20/2017 Results Only Imaging [facility]- Unknown, [facility] ProviderMD [phone] Social History Tobacco Use Types Packs/Day Years [...] in this encounter Care Teams Director Of District Office Relationship Specialty Start Date End Date Bobby Das MD PCP - General 07/06/[address] [place] [address],[address] [place] [address] documented as of this encounter
--- OUTSIDE RECORDS SUMMARY | 2022-06-28 11:15 | XMS_ITS | Encounter Summary ---
:1940 Author Organization [facility] Address [address] [place] [address] Care Team Providers Name Role Phone Bobby Das MD Primary Care Provider Reason for Visit Reason Comments Prostate Cancer Encounter Details Date Type Department Care Team Description 02/10/2018 Radiation Therapy [facility] Aries Gutierrez alignant neoplasm Visit Radiation Oncology Felix EAST MD of [facility] - [address] ([facility]) (Primary 111 [facility] Dx) [facility], [address] [place] [address] [address] [place] [address] Social History Tobacco Use Types [...] encounter diagnosis was Malignant neoplasm of prostate ([facility]). Assessment: Assessment Completed By: Felix Gutierrez MD (02/10/18 9936) Radiation Therapy: Cumulative RT Dose 2400 cGy [...] Changes: None Sj Gutierrez MD Radiation Oncology [phone] (office) [phone] (pager) documented in this encounter Plan of Treatment Not on filedocumented as of this encounter Visit Diagnoses Diagnosis Malignant neoplasm of prostate (HCC-CMS) (HCC) - Primary Malignant neoplasm of prostate documented in this encounter Care Teams Retention Representative Relationship Specialty Start Date End Date Bobby Das MD PCP - General 07/06/[address] [place] [address] ,[address] [place] [address] documented as of this encounter
--- OUTSIDE RECORDS SUMMARY | 2022-06-28 11:15 | XMS_ITS | Encounter Summary ---
:1940 Author Organization [facility] Address [address] [place] [address] Care Team Providers Name Role Phone Bobby Das MD Primary Care Provider Reason for Visit Reason Comments Cancer Encounter Details Date Type Department Care Team Description 02/06/2018 Radiation Therapy [facility] Lynn Vargas RN Malignant neoplasm Visit Radiation Oncology 111 [facility] ([facility] ([facility]) [address] [place] [address] (Primary Dx) [place] [id number] Social History Tobacco Use Types Packs/Day Years [...] encounter diagnosis was Malignant neoplasm of prostate ([facility]). Assessment: Assessment Completed By: Lynn Vargas RN [...] Visit Diagnoses Diagnosis Malignant neoplasm of prostate ([facility]CC-[facility]) (HCC) - Primary Malignant neoplasm of prostate documented in this encounter Care Teams Product Communications Manager Relationship Specialty Start Date End Date Bobby Das MD PCP - General 07/06/[address] [place] [address],[address] [place] [address] documented as of this encounter
--- OUTSIDE RECORDS SUMMARY | 2022-06-28 11:15 | XMS_ITS | Encounter Summary ---
:1940 Author Organization [facility] Address [address] [place] [address] Care Team Providers Name Role Phone Bobby Das MD Primary Care Provider Reason for Visit Reason Comments Follow-up Injection Encounter Details Date Type Department Care Team Description 01/05/2018 Office Visit [facility] Erlin José MD Malignant neoplasm of Urology - Main [address] [place] [address] ([facility] ([facility]) (Primary 111 [facility] [place] [address] [address], [place] [address] (Wo rk) Social History Tobacco [...] Progress Notes Chino José MD - 01/05/2018 4617 EST Chief Complaint: Chief Complaint Patient presents with ??? Follow-up Injection HPI: Koko is a 77 y.o. male with prostate cancer. Grant presented with an elevated PSA to 12.8 shaw palpable nodule and on biopsy had 2 out of 12 cores positive for [place] 3+3 and [place] 3+4 prostate cancer. T2a. He previously had [...] Dr. Gutierrez this week See me at [facility] after radiation therapy is complete with a PSA Chino José MD a [place], DION - 01/05/2018 0930 EST Lupron 22.5 mg mixed and injected into left buttocks without incidence per Dr. José's order. I was supervised by Dr José who was present and immediately available in the office suite. mAa Corea RN 01/05/2018 10:00 documented in this [...] mg documented in this encounter Care Teams Itinerant Teacher Assistant Relationship Specialty Start Date End Date Bobby Das MD PCP - General 07/06/[address] [place] [address],[address] [place] [address] documented as of this encounter
--- OUTSIDE RECORDS SUMMARY | 2022-06-28 11:15 | XMS_ITS | Encounter Summary ---
:1940 Author Organization [facility] Address [address] [place] [address] Care Team Providers Name Role Phone Bobby Das MD Primary Care Provider Reason for Visit Reason Comments Prostate Cancer Encounter Details Date Type Department Care Team Description 02/17/2018 Radiation Therapy [facility] Aries Gutierrez alignant neoplasm Visit Radiation Oncology Felix EAST MD of [facility] - [address] ([facility]) (Primary 111 [facility] Dx) [facility], [address] [place] [address] [address] [place] [address] Social History Tobacco Use Types Packs/Day Years Used Date Current Every Day Smoker Smokeless Tobacco: Never Used Sex Assigned at Date Recorded Not on file documented as of this encounter Progress Notes Delores Gutierrez III, MD - 02/17/2018 111 EDT On Treatment Visit Assessment: Koko Zamora is currently receiving radiation therapy treatment and is being seen today for his weekly on treatment visit. The encounter diagnosis was Malignant neoplasm of prostate ([facility]). Assessment: Assessment Completed By: Felix Gutierrez MD (02/17/18 7554) Radiation Therapy: Cumulative RT Dose 3600 cGy [...] if bowels worsen Medication Changes: None Sj Guteirrez MD Radiation Oncology [phone] (office) [phone] (pager) documented in this encounter Plan of Treatment Not on filedocumented as of this encounter Visit Diagnoses Diagnosis Malignant neoplasm of prostate (HCC-CMS) (HCC) - Primary Malignant neoplasm of prostate documented in this encounter Care Teams Hat Cleaner Relationship Specialty Start Date End Date Bobby Das MD PCP - General 07/06/[address] [place] [address] ,[address] [place] [address] documented as of this encounter
--- OUTSIDE RECORDS SUMMARY | 2022-07-05 12:34 | XMS_ITS | Clinical Summary ---
:1940 Author Organization [facility] [place] [address] Care Team Providers Name Role Phone Bobby [...] 04/12/2021 Active (FLONASE) 50 mcg/actuation Each Nare Naturita, Suspension route daily as needed. 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 Permanent atrial fibrillation 06/13/2022 Last Assessment & [...] consideration of AV no de ablation and SALES AND SERVICE REPRESENTATIVE-D Limb ischemia 05/15/2022 History of basal cell carcinoma 05/31/2014 Basal cell carcinoma 03/29/2014 Verruca vulgaris 03/29/2014 AK (actinic keratosis) 03/29/2014 GIB (gastrointestinal bleeding) 06/28/2011 Overview: Secondary to 3-4 ASA/day, required admis lynette and blood transfusion MVP (mitral valve prolapse) s/p repair 06/28/2011 Overview: Surgery done at [facility] in 2 001 Hypertriglyceridemia 06/28/2011 Adhesive capsulitis of L shoulder 06/28/2011 Alcohol use 06/28/2011 Encounters Date Type Specialty Care Team Description 07/01/2022 Telephone Dermatology Zainab Sommer CMA 06/25/2022 Surgery Gastroenterology Giovani Ponce UPPE R GI M, MD ENDOSCOPY 06/25/2022 Anesthesia Event Gastroenterology Bobby Alfaro MD Lehmann, Jordi S, CRNA 06/25/2022 Hospital Encounter Gastroenterology Giovani Ponce MD 06/25/2022 Orders Only Gastroenterology Isi Celaya Adenomat ous polyp of MD Samaria colon, unspecif ied part of colon 06/24/2022 Telephone GastroenterAlan Rose MD 06/23/2022 Telephone Gastroenterology Alan August MD 06/20/2022 Orders Only Cardiology Jeanette, HFrEF (heart fa ilure with reduced ejection fraction); Alan Hicks MD Coronary priscilla ry disease involving round valley coronary artery of round valley heart without angina pectoris 06/19/2022 Telephone Cardiology Kourtney Jimenez RN 06/17/2022 Orders Only Dermatology Loretta Cohen Basal cell c carlos Paez MD (BCC) of right forehead 06/13/2022 Office Visit Cardiology Jeanette, Coronary artery disease involving round valley coronary artery of round valley heart without angina pectoris; Alan Hicks MD HFrEF (heart failure with reduced ejection fraction); Permanent atria l fibrillation 06/13/2022 Office Visit Vascular Surgery Fito Summers Limb isch alma Tan MD 06/13/2022 Tech Visit Vascular Surgery Demond, Edson Limb isc hemia L, [place] 06/10/2022 Office Visit Dermatology Loretta Cohen Neoplasm of MD Philippe unspecified beh avior of bone, soft t issue, and skin 05/31/2022 Anesthesia Event Gastroenterology Elmer Johnson MD Drost, Alexander J, CARAMEL CANDY MAKER HELPER 05/31/2022 Surgery Gastroenterology Giovani Ponce UPPE R GI M, MD ENDOSCOPY 05/31/2022 - Hospital Encounter Dominique Hinds GIB (g astrointestinal 06/02/2022 MD bleeding) (Primary Dx) Mahendra Victor MD Friedman, Harley P, MD Ratanamaneechat, Suphagaphan, MD 05/31/2022 Office Visit Vascular Surgery DavinaStephanie bellamyy Dizzy; B, COMMERCIAL LINES ACCOUNT ASSISTANT Atrial fibrilla tion, unspecified type; SOB (shortness of breath) 05/28/2022 Telephone Vascular Surgery Dominique Bolivar RN 05/24/2022 Telephone Cardiology Kourtney Jimenez RN 05/21/2022 Hospital Encounter Cardiology Paroxysma l atrial fibrillation 05/20/2022 Surgery Cardiology Abundio Servin MD CATHETERIZATION 05/15/2022 Anesthesia Event Surgery Crai Hernandez MD Patel, Shreena K, CARAMEL CANDY MAKER HELPER 05/15/2022 Surgery Surgery Fito Summers EMBOLECTOMY O Elle Tan MD THROMBECTOMY, FEMOROPOPLITEAL , AORTOILIAC PRISCILLA [...] Encounters Date Type Specialty Care Team Description 08/08/2022 Office Visit Gastroenterology Negra Collins MD [facility] GASTROENTEROLOGY DEPT [place], [place] [address] (Wo rk) 09/05/2022 Appointment Cardiology Trinity Reid MD [facility] CARDIOLOGY [place], [place] [address] (Wo rk) 09/05/2022 Office Visit Cardiology Trinity Reid MD [facility] CARDI[facility] [place], [place] [address] (Wo rk) Health Maintenance Due [...] Component Value Ref Test Analysis Performed At [facility] Range Method Time Signature UPPER GI [facility]OVATION ENDOSCOPY Endoscopy Procedure Date: 06/25/2022 10:33 AM ? Patient Name: Koko Bah ? Date of : 1940 ? Age: 81 ? Order #: [id number] ? Instrument Name: [id number]- [id number] ? Procedure: ? Upper GI endoscopy Indications: [...] Component Value Ref Test Analysis Performed At [facility] Method Time Signature COLONOSCOPY [facility] Endoscopy Procedure Date: 06/25/2022 10:33 AM ? Patient Name: Koko Bah ? Date of : 1940 ? Age: 81 ? Order #: [id number] ? Instrument Name: [id number]- [id number] ? Procedure: ? Colonoscopy Indications: ? Gastrointestinal [...] Procedure Code(s): ? --- Professional --- ? 71660, Colonoscopy, flexib le; with ? control of [...] of sigmoid ? colon CPT copyright 2020 [employer]. All rights reserved. The codes documented in this report are preliminary and upon remote coders review may be revised to meet current [...] Component Value Ref Test Analysis Performed At [facility] Range Method Time Signature VB Text Department: Vascular Surgery Lab VASCUBASE Report Patient: [id number] (KOKO BAH) CPT: 20862 Referring Physician: FITO SUMMERS ?? Phone: Indications: s/p L TRAFFIC OFFICER endart. Diabetes mellitus: no Findings: Right ?Pressure [...] ??No previous study in our vascular lab santos elliott for comparison. Electronically Signed by: FITO SUMMERS on 2022-06-13 08:00: 25 AM VB Text End of Report VASCUBASE Report Specimen (Source) Anatomical Collection Method Collection Time Re ceived Time Location / / Volume Laterality 06/13/2022 7:13 AM EDT Fito Summers MD VASCULAR ORDERABLES Performing Organization Address City/[facility]/ZIP Code Phon e Number VASCUBASE Specimen to Pathology (06/10/2022 1:20 PM EDT) Specimen Anatomical Collection Method Collection Time Receive d Time (Source) Location / / Volume Laterality AP Specimen 06/10/2022 1:20 PM 1:20 EDT PM EDT Narrative [facility] ORY - 06/10/2022 1:20 PM EDT Specimen requisition ordered. ??Separate Pathology report to follow Loretta Cohen MD PATHOLOGY/CYTOLOGY ORDERABLE S Performing Organization Address [facility] [place] [address] [facility] [address] Surgical Pathology Report (06/10/2022 11:43 AM EDT) Component Value Ref Test Analysis Performed At [facility] Range Method Time Signature Surgical [id number] ? Location: [facility] Report The signing pathologist has (i) examined the relevant preparation(s) for the [facility] specimen(s) and (ii) rendered or confirmed the diagnosis(es) . HOSPITAL LABORATORY . ?Surgic al Pathology DIAGNOSIS Right lateral eyebrow, skin shave biopsy: - ??Basal cell carcinoma, no dular pattern, transected at the peripheral and deep specimen edges Electronically signed by: ?Delroy CARCAMO, PhD, Ian Verified: ??06/12/2022 14:33 ??Dermatopathologist Performed at: ??-[facility] Dept. of Pathology, [place], [place] SPECIMEN(S) SUBMITTED A - right lateral [...] City/State/ZIP Code Phon e Number [place] [id number] (ABNORMAL) Hemogram (06/02/2022 8:20 AM EDT)Only the most recent of14 results within the time period is included. Analysis Performed At Patho logist Time Signature WBC 7.2 4.0 - 9.5 [facility] x10(3)/[facility] LABORATORY RBC 2.74 (L) 4.58 - [facility] 5.54 [facility] x10(6)/[facility] LABORATORY Hemoglobin 8.7 (L) 13.7 - [place]AY[place] 16.5 g/dL [facility] LABORATORY Hematocrit 25.7 (L) 40.5 - [facility] 48.5 % [facility] LABORATORY MCV 93.8 (H) 82.9 - [place]AY[place] 93.1 [facility] LABORATORY MCH 31.8 27.5 - Rontal ApplicationsFAYE 32.1 pg [facility] LABORATORY MCHC 33.9 32.0 - [place] 35.7 g/dL [facility] LABORATORY Platelets 260 145 - 357 IL[place] Known x10(3)/[facility] LABORATORY RDWSD 51.0 (H) 36.0 - [place] 45.0 [facility] LABORATORY RDWCV 14.9 (H) 11.4 - [place] 13.8 % [facility] LABORATORY MPV 10.0 7.6 - 12.9 [facility] nRBC % Auto 0.0 % [facility] nRBC Abs Auto 0.000 0.000 - [facility] 0.000 [facility] x10(3)[facility] LABORATORY Specimen Anatomical Collection Method Collection Time Receive d Time (Source) Location / / Volume Laterality Blood 06/02/2022 8:20 AM 8:25 EDT AM EDT Resulting Agency Comment Spec In Lab Kurt Ames MD HEMATOLOGY ORDERABLES Performing Organization Address City/State/[place] [address] (ABNORMAL) Differential, Automated (06/02/2022 8:20 AM EDT)Only the most recent of14 resultswithin the time period is included. P athologist Signature Neutrophils % 61.3 % [facility] Neutr Abs (ANC) 4.44 1.70 - [facility] 6.10 [facility] x10(3)[facility] LABORATORY Lymphocytes % 25.2 % [facility] Lymphocytes Abs 1.8 0.9 - 3.2 [facility] x10(3)[facility] LABORATORY Monocytes % 10.0 % [facility] Monocyte Abs 0.7 0.3 - 0.9 [facility] x10(3)[facility] LABORATORY Eosinophils % 2.1 % [facility] Eosinophils Abs 0.2 0.0 - 0.4 [facility] x10(3)[facility] LABORATORY Basophils % 0.7 % [facility] Basophils Abs 0.0 0.0 - 0.1 [facility] x10(3)[facility] LABORATORY Immature Gran % 0.70 % [facility] [...] Gran Abs 0.05 (H) 0.00 - 0.04 x10(3)/mcL [facility] LABORATORY Specimen Anatomical Collection Method Collection Time Receive d Time (Source) Location / / Volume Laterality Blood 06/02/2022 8:20 AM 2 8:25 EDT AM EDT Resulting Agency Comment Spec In Lab Kurt Ames MD HEMATOLOGY ORDERABLES Performing Organization Address City/State/ZIP Code Phon e Number [address] Heparin (unfractionated) Level (06/02/2022 6:30 AM EDT)Only the most recent of11 resultswithin the time period is included. athologist Signature Heparin UFH 0.39 IU/mL [facility] LABORATORY Comment: Heparin (anti-Xa) [...] Organization Address City/State/ZIP Code Phon e Number [address] Magnesium (06/02/2022 12:30 AM EDT)Only the most recent of5 resultswithin the time period is included. athologist Signature Magnesium 0.83 0.69 - 1.07 [facility] mmol/L [facility] LABORATORY Specimen Anatomical Collection Method Collection Time Receive d Time (Source) Location / / Volume Laterality Blood 06/02/2022 12:30 06/02/2022 AM EDT 12:40 AM EDT Resulting Agency Comment Spec In Lab Mahendra Victor MD CHEMISTRY ORDERABLES Performing Organization Address City/State/[place] [address] (ABNORMAL) Basic Metabolic Panel (non-fasting) (06/02/2022 12:30 AM EDT)Only the most recent of6 resultswithin the time period is included. athologist Signature Glucose Lvl 151 65 - 199 [facility] mg/dL [facility] LABORATORY Comment: Diabetes: >=200 mg/dL plus symp toms BUN 12 10 - 20 mg/dL [facility] LABORATORY Creatinine 0.71 (L) 0.80 - 1.50 mg/dL [facility] LABORATORY Sodium 142 135 - 145 [...] Organization Address City/State/[place] [address] SCAN DOC: TELEMETRY STRIPS (06/01/2022 8:37 PM EDT)Only the most recent of8 resultswithin the time period is included. Narrative This result has an attachment that is no t available. Unknown MEDIA MGR SCAN EXT ORDR/RSLT (ABNORMAL) Urinalysis with reflex Culture (06/01/2022 4:00 AM EDT)Only the most recent of2 resultswithin the time period is included. [facility] gist Method Time Signature Glucose UA 500 Negative [facility] (Critical) mg/dL [facility] LABORATORY Comment: Urinalysis result NOT critical without a combination of Glucose greater than or equal to 500 mg/dL AND Ketones greate r than or equal to 80 mg/dL Protein UA Negative Negative mg/dL [facility]ORY Bilirubin UA Negative Negative mg/dL [facility] LABORATORY Comment: Clinical correlation required for [...] HOSPITAL LABORATORY Blood UA Negative Negative mg/dL [facility] Ketones UA Negative Negative mg/dL [facility] Nitrite UA Negative Negative [facility] Leukocytes UA Negative Negative mcL [facility]ORY Appearance UA Clear Clear [facility] LABORATORY Spec [place] UA >=1.030 (A) 1.005 - 1.030 [facility] LABORATORY Color UA Yellow Yellow [facility] LABORATORY Culture Reflexed No [facility] LABORATORY Specimen Anatomical Collection Method Collection Time Receive d Time (Source) Location / / Volume Laterality Clean Catch 06/01/2022 4:00 AM 4:26 Urine EDT AM EDT Resulting Agency Comment Spec In Lab Mahendra Victor MD URINE ORDERABLES Performing Organization Address City/State/[place] [address] Transfuse RBC (05/31/2022 7:36 PM EDT) Dominique Hinds MD NURSING TREATMENT ORDERABLES - BLOOD ADMIN UPPER GI ENDOSCOPY (05/31/2022 3:37 PM EDT) Component Value Ref Test Analysis Performed At [facility] Range Method Time Signature UPPER GI [facility] ENDOSCOPY Endoscopy Procedure Date: 05/31/2022 3:37 PM ? Patient Name: Koko Bah ? Date of : 1940 ? Age: 81 ? Order #: [id number] ? Instrument Name: [id number] ? Procedure: ? Upper GI endoscopy Indications: ? Melena, Suspected upper ? gastrointestinal bleeding Providers: ? Giovani Ponce, Torrey Gannon , ? Vani Wei RN, Juhi Maxwell, ? Torres Ovalle MD: ?Dominique Hinds Medicines: [...] Endoscope w as ? introduced through the [facility], and ? advanced to the fourth par [...] Procedure Code(s): ? --- Professional --- ? 33142, Esophagogastroduode noscopy, ? flexible, transoral; with control [...] stomach ? and duodenum CPT copyright 2020 [employer]. All rights reserved. The codes documented in this report are preliminary and upon remote coders review may be revised to meet current [...] have questions please contact the health career information specialist that requested your imaging first. ? Narrative 05/31/2022 2:39 PM EDT EXAMINATION: CT ABDOMEN AND PELVIS [facility] CONTRAST (GI BLEED) CLINICAL HISTORY: Significant Hb drop. U nknown source. has had a [facility] with stent placed and revascularization of [...] enlarged lymph nodes. Vasculature: Patent common iliac, tea blender al iliac, and common femoral arteries bilaterally. [...] the original. EXAMINATION: CT ABDOMEN AND PELVIS [facility] (GI BLEED) CLINICAL HISTORY: Significant Hb drop. [...] enlarged lymph nodes. Vasculature: Patent common iliac, tea blender al iliac, and common femoral arteries bilaterally. [...] have questions please contact the health career information specialist that requested your imaging first. Dominique Hinds MD IMG CT ORDERABLES Type and Screen Validity (05/31/2022 1:43 PM EDT)Only the most recent of2 resultswithin the time period is included. [facility] Method Time Signature T&S only valid [facility] LABORATORY Comment: This Type and Screen result is only valid at the [facility] Specimen Anatomical Collection Method Collection Time Receive d Time (Source) Location / / Volume Laterality Blood 05/31/2022 1:43 PM 2 1:57 EDT PM EDT Resulting Agency Comment Spec In Lab Dominique Hinds MD BLOOD BANK ORDERABLES Performing Organization Address City/State/[place] [address] ABORH Recheck Status (05/31/2022 1:43 PM EDT)Only the most recent of2 results within the time period is included. [facility] Method Time Signature ABORH Type Completed [facility] LABORATORY Specimen Anatomical Collection Method Collection Time Receive d Time (Source) Location / / Volume Laterality Blood 05/31/2022 1:43 PM 2 1:57 EDT PM EDT Resulting Agency Comment Spec In Lab Dominique Hinds MD BLOOD BANK ORDERABLES Performing Organization Address City/[facility]/[place] [address] ABO/Rh Typing (05/31/2022 1:43 [...] MD BLOOD BANK ORDERABLES Performing Organization Address [facility]/[place] [address] Antibody screen (05/31/2022 1:43 PM EDT)Only the most recent of2 resultswithin the time period is included. Patholo gist Method Time Signature Ab Screen Negative [facility] LABORATORY Expires at 06/03/2022 [facility] [id number] on: [facility] LABORATORY Specimen Anatomical Collection Method Collection Time Receive d Time (Source) Location / / Volume Laterality Blood 05/31/2022 1:43 PM 2 1:57 EDT PM EDT Resulting Agency Comment Spec In Lab Dominique Hinds MD BLOOD BANK ORDERABLES Performing Organization Address City/[facility]/ZIP Code Phon e Number [address] Prepare RBC (05/31/2022 1:35 PM EDT)Only the most recent of2 resultswithin the time period is included. P athologist Signature Dispensed? Yes [facility] LABORATORY Specimen Anatomical Collection Method Collection Time Receive d Time (Source) Location / / Volume Laterality Blood 05/31/2022 1:35 PM 2 1:30 EDT PM EDT Dominique Hinds MD BLOOD BANK ORDERABLES Performing Organization Address City/State/[place] [address] (ABNORMAL) BLOOD GAS 2 VENOUS (05/31/2022 11:24 AM EDT) P athologist Signature pH Marco Antonio 7.38 7.32 - [facility] 7.42 [facility] LABORATORY pCO2 Marco Antonio 40 (L) 41 - 51 [facility] LABORATORY pO2 Marco Antonio 18 (L) 25 - 40 [facility] LABORATORY HCO3 Marco Antonio 23.3 mmol/L [facility]OR[facility] BE Marco Antonio -1.8 mmol/L [facility] Hgb Blood Gas 7.0 (L) 13.7 - [facility] 16.5 g/dL [facility] LABORATORY O2HB Marco Antonio 24.3 % [facility] [...] Whole Blood 3.9 3.5 - 5.0 mmol/L [facility] LABORATORY Comment: Please note: Patients with WBC >100,000 may have falsely elevated Potassium levels. Contact the Clinical Chemistry L aboratory if there are any questions. ICa Whole Blood 1.19 1.15 - 1.33 mmol/L [facility] LABORATORY Comment: Note: ??Total bilirubin higher than 20 m g/dL may lead to falsely low ionized calcium. CL Whole Blood 107 98 - 107 mmol/L [facility] LABORATORY Gluc Whole Bld 204 (H) 65 - 199 mg/dL [facility] LABORATORY Comment: Diabetes: >=200 mg/dL plus symp toms Lactate WB 1.4 0.5 - 2.2 mmol/L [facility] LABORATORY BGas Source Venous [facility] LABORATORY Specimen Anatomical Collection Method Collection Time Receive d Time (Source) Location / / Volume Laterality Blood 05/31/2022 11:24 05/31/2022 AM EDT 11:24 AM EDT Dominique Hinds MD CHEMISTRY ORDERABLES Performing Organization Address City/[facility]/ZIP Code Phon e Number [address] TSH Walker (05/31/2022 11:20 AM EDT) P athologist Signature TSH 1.67 0.27 - 4.20 [facility] mcIU/mL [facility] LABORATORY Comment: Reference Interval (mcIU/mL): Females: ??First Trimester: 0.23-3.88 ??Second Trimester: 0.22-3.90 ??Third Trimester: 0.44-4.66 Specimen Anatomical Collection Method Collection Time Receive d Time (Source) Location / / Volume Laterality Blood 05/31/2022 11:20 05/31/2022 AM EDT 11:28 AM EDT Resulting Agency Comment Spec In Lab Dominique Hinds MD CHEMISTRY ORDERABLES Performing Organization Address City/[facility]/ZIP Code Phon e Number [address] XR Chest PA & [...] have questions please contact the health career information specialist that requested your imaging first. ? Narrative [...] have questions please contact the health career information specialist that requested your imaging first. Dominique Hinds MD IMG DX ORDERABLES Blue Tube HOLD (05/31/2022 10:50 AM EDT) athologist Signature Blue Hold Sample in [facility] lab. [facility] LABORATORY Specimen Anatomical Collection Method Collection Time Receive d Time (Source) Location / / Volume Laterality Blood Venous Draw / 05/31/2022 10:50 05/31/2022 Unknown AM EDT 11:05 AM EDT Brittany Ramirez MD HEMATOLOGY ORDERABLES Performing Organization Address City/State/[place] [address] Troponin (05/31/2022 10:50 AM EDT) athologist Signature Troponin-T <0.01 0.00 - 0.00 [facility] ng/mL [facility] LABORATORY Comment: The 99th percentile for Troponin T is le ss than 0.01 ng/mL, any detectable cTnT concentration using this assay should be considered elevated. According to the third universal definit ion of myocardial infarction the following criteria with a clinical prese ntation consistent with acute myocardial ischemia meets the diagnosis for a myocardial infarction (NC). Detection of a rise and/or fall of [...] additional sample may be indicated. Reference: Third [place]urel Definition of Myocardial Infarction. Journal of the [employer] 2012;60:1581-98 Specimen Anatomical Collection Method Collection Time Receive d Time (Source) Location / / Volume Laterality Blood 05/31/2022 10:50 05/31/2022 AM EDT 11:03 AM EDT Resulting Agency Comment Spec In Lab Dominique Hinds MD CHEMISTRY ORDERABLES Performing Organization Address City/State/ZIP Code Phon e Number [address] Phosphorus (05/31/2022 10:50 AM EDT)Only the most recent of2 resultswithin the time period is included. P athologist Signature Phosphorus 3.2 2.5 - 4.5 [place]OCK mg/dL [facility] LABORATORY Specimen Anatomical Collection Method Collection Time Receive d Time (Source) Location / / Volume Laterality Blood 05/31/2022 10:50 05/31/2022 AM EDT 11:03 AM EDT Resulting Agency Comment Spec In Lab Dominique Hinds MD CHEMISTRY ORDERABLES Performing Organization Address City/[facility]/ZIP Code Phon e Number [address] (ABNORMAL) pro-Brain Natriuretic Peptide (05/31/2022 10:50 AM EDT) P athologist Signature ProBNP 1,077 (H) <=449 [place] FAYE pg/mL [facility] LABORATORY Specimen Anatomical Collection Method Collection Time Receive d Time (Source) Location / / Volume Laterality Blood 05/31/2022 10:50 05/31/2022 AM EDT 11:03 AM EDT Resulting Agency Comment Spec In Lab Dominique Hinds MD CHEMISTRY ORDERABLES Performing Organization Address City/[facility]/ZIP Code Phon e Number 25 [address] Lipase (05/31/2022 10:50 AM EDT) P athologist Signature Lipase 41 0 - 60 ILDA FAYE unit/L [facility] LABORATORY Specimen Anatomical Collection Method Collection Time Receive d Time (Source) Location / / Volume Laterality Blood Venous Draw / 05/31/2022 10:50 05/31/2022 Unknown AM EDT 11:11 AM EDT Resulting Agency Comment Spec In Lab Zain Champion MD CHEMISTRY ORDERABLES Performing Organization Address City/[facility]/[place] [address] (ABNORMAL) Hepatic Function Panel (05/31/2022 10:50 AM EDT) Analysis Performed At Patho logist Time Signature Total Protein 6.4 6.1 - 8.0 ILDA FAYE g/dL [facility] LABORATORY Albumin 4.1 3.2 - 5.2 ILDA FAYE g/dL [facility] LABORATORY AST 24 0 - 39 [facility] FAYE unit/L [facility]OR[facility] ALT 44 0 - 55 [facility] FAYE unit/L [facility] LABORATORY Alk Phos 63 40 - 130 [facility] LAB[facility] Total <0.2 (L) 0.2 - 1.3 ILDA FAYE Bilirubin mg/dL [facility] LABORATORY Bili, Direct 0.1 0.0 - 0.3 [facility] FAYE mg/dL [facility] LABORATORY Specimen Anatomical Collection Method Collection Time Receive d Time (Source) Location / / Volume Laterality Blood Venous Draw / 05/31/2022 10:50 05/31/2022 Unknown AM EDT 11:11 AM EDT Resulting Agency Comment Spec In Lab Zain Champion MD CHEMISTRY ORDERABLES Performing Organization Address City/[facility]/[place] [address] EKG 12 Lead (05/31/2022 10:11 AM EDT)Only the most recent of3 resultswithin the time period is included. Component Value Ref Range Test Analysis Performed Pathologis t Method Time At Signature Ventricular rate 106 BPM MUSE SYSTEM QRS Duration 122 ms MUSE SYSTEM Q-T Interval 368 ms MUSE SYSTEM QTC Calculated 488 ms MUSE SYSTEM (Bezet) Calculated R Hamilton -43 degrees MUSE SYSTEM Calculated T Hamilton 109 degrees MUSE SYSTEM INTERPRETATION Atrial fibrillation [...] erpretation Confirmed by fellow MD Mike, [place] ([id number]) on 022 8:36:21 PM Confirmed by MD [...] SYSTEM - 05/20/2022 7:09 PM ED T ?[facility] ? Cardiac Cathete rization/Intervention Report ? Patient Name: Koko Bah. ? Procedure Date: 05/20/2022 ? A #: [id number] ? Primary Physician: Malathi, Abundio S ? Case #: [id number] ? File Name: [id number] ? Catheterization Order Number: [id number] ? [facility] ? Final Report [place], [place] ? Patient Name: ? Koko Sullivan. Klarissa uson ? ID#: ?[id number] ? : ?1940 ? Procedure Date: ? May 20, 2022 ?Case #: ? Room: ? 1 ? Case Physician: ? Abundio roldan M.D. ? Start: ?17:16 ? Admission: ??05/15/2022 [...] procedure was Urgent. 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 Chest pain [...] ?3.5 guiding catheter and a 3.5 [address] [facility] [address] ??20 Mhz. ??Imaging ?was successful. ??Image [...] A premounted 2. 75 x 30 mm [place] (AMPARO) was deployed ? with a maximum [...] require ?modification of this regimen. C onsult [facility] Interventional Cardiology for ?questions. ?The 1 year [...] nurse. ??Case time = 01:19. ?Dr. Abundio eSrvin M.D. perform ed the coronary angiography, left [...] POC Glucose 123 65 - 199 ILDA FAYE mg/dL [facility] LABORAT[facility] Comment: Supplemental ranges: <140 mg/dL before meals <180 mg/dL all other times of the day Specimen Anatomical Collection Method Collection Time Receive d Time (Source) Location / / Volume Laterality Blood 05/20/2022 5:42 PM 2 5:42 EDT PM EDT Fito Summers MD POINT OF CARE TEST ORDERABLE S Performing Organization Address City/State/[place] [address] (ABNORMAL) BMP w/fasting Glucose (05/20/2022 10:50 AM EDT) P athologist Signature Glucose 152 (H) 65 - 99 ILDA FAYE Fasting mg/dL [facility] LABOR[facility] Comment: ?Fasting* Glucose Interpretive C [...] 2009 BUN 11 10 - 20 mg/dL [facility]OR[facility] Creatinine 0.63 (L) 0.80 [...] estions. Chloride 103 98 - 107 mmol/L [facility] CO2 24 22 - 31 mmol/L [facility] Anion Gap 10 5 - 15 mmol/L [facility] Calcium 8.7 8.5 - 10.5 mg/dL [facility] Estimated GFR 97 >=60 mL/min/1.73 m?? [facility] LABORATORY [...] Organization Address City/State/[place] [address] TSH (05/18/2022 8:00 PM EDT) P athologist Signature TSH 2.27 0.27 - 4.20 [facility] mcIU/mL [facility] LABORAT[facility] Comment: Reference Interval (mcIU/mL): Females: ??First Trimester: 0.23-3.88 ??Second Trimester: 0.22-3.90 ??Third Trimester: 0.44-4.66 Specimen Anatomical Collection Method Collection Time Receive d Time (Source) Location / / Volume Laterality Blood 05/18/2022 8:00 PM 8:06 EDT PM EDT Resulting Agency Comment Spec In Lab Fito Summers MD CHEMISTRY ORDERABLES Performing Organization Address City/[facility]/ZIP Code Phon e Number [address] (ABNORMAL) Urinalysis Microscopic Exam (05/16/2022 11:15 PM EDT) athologist Signature RBC UA 8 (H) 0 - 3 /HPF [facility] WBC UA 2 0 - 3 /HPF [facility] Specimen Anatomical Collection Method Collection Time Receive d Time (Source) Location / / Volume Laterality Clean Catch 05/16/2022 11:15 05/16/2022 Urine PM EDT 11:30 PM EDT Resulting Agency Comment Spec In Lab Barbie Patiño MD URINE ORDERABLES Performing Organization Address City/[facility]/ZIP Code Phon e Number [address] XR Chest One View [...] have questions please contact the health career information specialist that requested your imaging first. ? Electronically signed by: Tiffanie George MD , [facility] ([phone]), at 05/16/2022 9:27 PM Narrative 05/16/2022 9:27 [...] have questions please contact the health career information specialist that requested your imaging first. Electronically signed by: Tiffanie George MD , [facility] ([phone]), at 05/16/2022 9:27 PM Fito Summers MD IMG DX ORDERABLES ECHOCARDIOGRAM COMPLETE W CONTRAST (05/16/2022 12:49 PM EDT) P athologist Signature EF 28 [facility] Specimen (Source) Anatomical Collection Method Collection Time Re ceived Time Location / / Volume Laterality 05/16/2022 11:22 AM EDT Narrative [facility] - 05/16/2022 1:54 PM EDT ?[facility] ?[address] ? [place] [address] ?Voice: ?Fax: ? Echocardiogram Report Name: KOKO BAH ?Study Date: 05/16/2022 11:22 AM ? Patient Location: 3WST 0303 B : 1940 ? Height: 67.5 in ? Account: [id number] Age: 81 yrs ? Weight: 176 lb Gender: Male ?BSA: 1.9 m2 Ordering Physician: FITO SUMMERS Referring Physician: MALI FLORIAN Performed By: Jolene Bernard RDCS Exam Location: [facility]. Interpretation Summary Left ventricle is mildly [...] and LV systolic dysfunction are new. Procedure Complete-12546. Image enhancement Optiso n was used for [...] ?large Aneurysmal ?15-16 ?? diffuse Procedure Note Yeni, Gladys Hicks MD - 05/16/2022Formatti ng of this note might be different from the original. [facility] [address] [place] [address] Voice: Fax: Echocardiogram Report Name: KOKO BAH Study Date: 05/2022 11:22 AM Patient Location: [address] [place] [address] : 1940 Height: 67.5 in Account: [id number] Age: 81 yrs Weight: 176 lb Gender: Male BSA: 1.9 m2 Ordering Physician: FITO SUMMERS Referring Physician: MALI FLORIAN Performed By: Jolene Bernard RDCS Exam Location: [facility]. Interpretation Summary Left ventricle is mildly [...] and LV systolic dysfunction are new. Procedure Complete-85055. Image enhancement Optiso n was used for [...] ss diastolic function. Ejection Fraction 2D Measurements Volum es EF(MOD-bp): 27.7 % IVSd: 1.3 cm LAV(MOD- [...] Art 7.33 (L) 7.35 - [facility] 7.45 [facility] LABORATORY pCO2 Art 41 35 - 45 [facility] LABORATORY pO2 Art 131 (H) 85 - 104 [facility] LABORATORY HCO3 Art 21.1 20.0 - [facility] 26.0 [facility] mmol/L [facility] LABORATORY BE Art -4.8 (L) -3.0 - 3.0 [facility] mmol/L [facility] LABORATORY Hgb Blood Gas 13.4 (L) 13.7 - [facility] 16.5 g/dL [facility] LABORATORY O2HB Art 96.9 94.0 - [facility] 97.0 % [facility] LABORATORY COHB Art 1.4 % [facility]OR[facility]ORY Comment: Nonsmokers: 0.5-1.5% COHB Smokers: Variable, but usually less than 10% Toxic: 20-30% COHB Lethal: Greater than 60% COHB METHB Art 0.3 <=1.5 % [facility] LABORATORY Na Whole Blood 139 135 - 145 mmol/L [facility] K Whole Blood 3.8 3.5 - 5.0 mmol/L [facility] LABORATORY Comment: Please note: Patients with WBC >100,000 may have falsely elevated Potassium levels. Contact the Clinical Chemistry L aboratory if there are any questions. ICa Whole Blood 1.32 1.15 - 1.33 mmol/L [facility] LABORATORY Comment: Note: ??Total bilirubin higher than 20 m g/dL may lead to falsely low ionized calcium. CL Whole Blood 113 (H) 98 - 107 mmol/L [facility] LABORATORY Gluc Whole Bld 136 65 - 199 mg/dL [facility] LABORATORY Comment: Diabetes: >=200 mg/dL plus symp toms. Lactate WB 2.0 0.5 - 2.2 mmol/L [facility] LABORATORY Specimen Anatomical Collection Method Collection Time Receive d Time (Source) Location / / Volume Laterality Blood 05/15/2022 3:33 PM 3:[address] Jamel Torre MD CHEMISTRY ORDERABLES Performing Organization Address City/State/[place] [address] (ABNORMAL) APTT (05/15/2022 12:30 PM EDT) P athologist Signature PTT 76 (H) 25 - 37 sec [facility] Comment: The PTT is [...] Resulting Agency Comment Spec In Lab Jhonny Claudiocy DO HEMATOLOGY ORDERABLES Performing Organization Address City/State/ZIP Code Phon e Number [place] [phone] Drive (ABNORMAL) Prothrombin Time (05/15/2022 12:30 PM EDT) athologist Signature PT 12.9 (H) 9.4 - 12.5 [facility] LABORATORY INR 1.1 [facility] Comment: An INR <2.0 [...] City/State/ZIP Code Phon e Number [place] [phone] [address] LAB[address] Drive Gold Tube HOLD (05/15/2022 12:20 PM EDT) athologist Signature Gold Hold Sample in [facility] LABORATORY Specimen Anatomical Collection Method Collection Time Receive d Time (Source) Location / / Volume Laterality Blood No Charge / 05/15/2022 12:20 05/15/2022 Unknown PM EDT 12:20 PM EDT Lc TRIPP CHEMISTRY ORDERABLES Performing Organization Address City/State/[place] [address] [facility] [address] CK (05/15/2022 12:00 PM EDT) P athologist Signature CK, Total 87 0 - 200 [facility] unit/L [facility] LABORATORY Specimen Anatomical Collection Method Collection Time Receive d Time (Source) Location / / Volume Laterality Blood Venous Draw / 05/15/2022 12:00 05/15/2022 Unknown PM EDT 12:19 PM EDT Resulting Agency Comment Spec In Lab Fito Summers MD CHEMISTRY ORDERABLES Performing Organization Address City/State/[place] [address] [facility] [address]ORY [address] Film Library- Storage Only CT Abdomen (05/15/2022 9:32 AM EDT) Specimen (Source) Anatomical Location Collection Method / Collectio n Time Received Time / Laterality Volume Narrative [facility] - 05/15/2022 9:32 AM EDT This exam is auto-finalizing. It's purpo se is for storage only. Matt Branham MD [facility] FILM LIBRARY ORDERABLES Performing Organization Address [facility]/ZIP [facility] Phon e Number [place], [place] Film Library- Storage Only DX Chest (05/15/2022 9:31 AM EDT) Specimen (Source) Anatomical Location Collection Method / Collectio n Time Received Time / Laterality Volume Narrative RAD - 05/15/2022 9:31 AM EDT This exam is auto-finalizing. It's purpo se is for storage only. Matt Branham MD [facility] FILM LIBRARY ORDERABLES Performing Organization Address City/[facility]/ZIP [facility] Phon e Number [place], [place] from Last 3 Months Insurance Payer Benefit Plan / Subscriber ID Effective Phone Address T ype Group Dates MEDICARE MEDICARE PART A [id number] 2007-Pres [phone] [facility] [phone] [facility] [id number] 2007-Pres [phone] [address] [facility] ent [address] [facility] [place] [address] Advance Directives Latest Code Status on File Code Status Date Activated Date Inactivated Comments Attempt Cardiopulmonary Resuscitation - 05/31/2022 7:18 PM 022 5:02 PM Inpatient Code Status decision made by: Patient Attempt Cardiopulmonary Resuscitation - 05/15/2022 5:15 PM 05/21/20 5:49 PM Inpatient Code Status decision made by: Patient Attempt Cardiopulmonary Resuscitation - 10/25/2020 7:10 AM 10/26 4:43 AM Inpatient Code Status decision made by: Patient Full Code 07/20/2019 9:17 AM 07/21/2019 4:45 AM Does patient have capacity to make decision: Yes Care Teams Telemetry Monitor Relationship Specialty Start Date End Date Bobby Das MD PCP - General 10/02/[address] [place] [address] [place] [id number]
--- OUTSIDE RECORDS SUMMARY | 2022-07-05 12:34 | XMS_ITS | Encounter Summary ---
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 [address] [place] [address] [place] [address] Fax: Referral ID Status Reason Start Date Expiration Visits Visits Date Requested Authorized [id number] Authorized Consult, 06/17/2022 06/17/2023 1 1 Test & Treat Encounter Details Date Type Department Care Team Description 06/17/2022 Orders Only Dermatology at [facility] Amanda Basal cell carcinoma Nicol CARCAMO (BCC) of right [address] [place] [phone] DERMATOLOGY [place], [place] [address] Social History Tobacco Use Types [...] 08/08/2022 Office Visit Gastroenterology Negra Collins MD [facility] GASTROENTEROLOGY DEPT [place], [place] [address] (Wo rk) 09/05/2022 Appointment Cardiology Trinity Reid MD [facility] CARDIOLOGY [place], [place] [address] (Wo rk) 09/05/2022 Office Visit Cardiology Trinity Reid MD [facility] CARDIOLOGY [place], [place] [address] (Wo rk) Scheduled Referrals Name Type Priority Associated Order Schedule Diagnoses Referral to Outpatient Referral Routine Basal cell Ordered: Dermatology carcinoma (BCC) of 2 right forehead documented as of this encounter Visit Diagnoses Diagnosis Basal cell carcinoma (BCC) of right fore head documented in this encounter Care Teams Custom Shop Worker Relationship Specialty Start Date End Date Bobby Das MD PCP - General 10/02/[address] [place] [address] [place] [phone] documented as of this encounter
--- OUTSIDE RECORDS SUMMARY | 2022-07-05 12:34 | XMS_ITS | Encounter Summary ---
:1940 Author Organization [facility] [place] [address] Care Team Providers Name Role Phone Abby Das MD Primary Care Provider Encounter Details Date Type Department Care Team Description 06/25/2022 Anesthesia Event Gastroenterology at [facility] Abby Alfaro MD [facility] [place] [address] [facility] David Lewis CRNA [facility] [place] [address] [place] [address] Anesthesia Record Procedure Summary Procedure Name [...] Kristen, (antecubital fossa), left; Mame Lockhart RN snsb-cyx-wjvijx catheter system; 18 gauge; Present on admission PIV 06/25/22; 1046; great saphenous vein 06/25/22 10 46 by Kristen, (medial side of leg), right; Mame Lockhart RN xvlj-dqe-axyplz catheter system; Anatomical Landmarks; 18 gauge; Present [...] Procedure Summary Date: 06/25/22 Room / Location: [facility] ENDO 4 / [facility] ENDOSCOPY Anesthesia Start: 1101 Anesthesia Stop: 1202 Procedures: EGD, UPPER GI ENDOSCOPY (N/A Trunk) COLONOSCOPY; W CONTROL OF BLEEDING, ANY METHOD (N/A Trunk) SMALL BOWEL ENTEROSCOPY (N/A Trunk) Diagnosis: (melena +./-) Surgeons: Giovani Ponce MD Responsible Provider: Abby Alfaro MD Anesthesia Type: MAC ASA Status: 3 All Anesthesia Providers: Anesthesiologist: Abby Alfaro MD POWDER CARRIER: David Gill CRNA Vitals Value Taken Time BP 102/85 06/25/22 1240 Temp Pulse Resp 16 06/25/22 1220 SpO2 95 % 06/25/22 1245 Pain Level 0 06/25/22 1220 Vitals shown include unvalidated device data. Patient Location: PACU/[facility] Level of Consciousness: Awake and [...] Date Noted ??? Coronary artery disease involving [place] coronary artery of [place] heart without angina adqeykrf64/04/2022 ??? HFrEF (heart failure with reduced ejection [...] IR Biopsy Spine 07/20/2019 Abby Marshall MD [facility] INTERVENTIONL RAD ??? IR VERTEBROPLASTY LUMBAR MULTIPLE LEVELS 07/20/2019 IR Vertebroplasty Lumbar Multiple Levels 07/20/2019 Abby Marshall MD [facility] INTERVENTIONL RAD ??? IR VERTEBROPLASTY THORACIC SINGLE LEVEL 10/25/2020 IR Vertebroplasty Thoracic Single Level 10/25/2020 Matt Chisholm MD [facility] INTERVENTIONL RAD ??? PRO EMBLC/THRMBC FEMORAL POPLITEAL AORTO-ILIAC ARTERY Left 05/15/2022 EMBOLECTOMY OR THROMBECTOMY, FEMOROPOPLITEAL, AORTOILIAC ARTERY BY LEG INCISION (WRVU 19.48) performed by Fito Summers MD at [facility] MAIN OR ??? PRO UPPER GI ENDOSCOPY, CTRL BLEED 05/31/2022 EGD, W CONTROL OF BLEEDING, ANY METHOD performed by Giovani Ponce MD at [facility] ENDOSCOPY ??? PRO UPPER GI ENDOSCOPY, DIAGNOSTIC N/A 05/31/2022 EGD, UPPER GI ENDOSCOPY performed by Giovani Ponce MD at [facility] ENDOSCOPY Social History Tobacco Use ??? [...] risks discussed with patient. Plan discussed with POWDER CARRIER. Anesthesia Screening documented in this encounter Plan of Treatment Upcoming Encounters Date Type Specialty Care Team Description 08/08/2022 Office Visit Gastroenterology Negra Collins MD [facility] GASTROENTEROLOGY DEPT [place], [place] [address] (Rebekah rojas) 09/05/2022 Appointment Cardiology Trinity Reid MD [facility] CARDIOLOGY [place], [place] [address] (Rebekah rojas) 09/05/2022 Office Visit Cardiology Trinity [facility] MD [facility] CARDI[facility]Y [place] [address] (Wo rk) documented as of this [...] mg documented in this encounter Care Teams Substation Supervisor Relationship Specialty Start Date End Date Abby Das MD PCP - General 10/02/[address] [place] [address] [place] [phone] documented as of this encounter
--- OUTSIDE RECORDS SUMMARY | 2022-07-05 12:34 | XMS_ITS | Encounter Summary ---
:1940 Author Organization [facility] [place] [address] Care Team Providers Name Role Phone Bobby Das MD Primary Care Provider Encounter Details Date Type Department Care Team Description 06/25/2022 Surgery Gastroenterology at [facility] Giovani Ponce, EGD, UPPER GI [facility] Bobby [place] [address] [facility] [phone] [place], [place] [address] Social History Tobacco Use Types [...] in this encounter Discharge Instructions Discharge InstructionsJuice Alvaraod RN - 06/25/2022 12:06 PM EDT Upper [...] the day after the procedure, use an axwd-uca-nviugmb spray to numb your throat. Sucking on [...] occurs, please contact your Doctor. Please call [phone] before 8pm Mon-Fri with problems, questions or concerns. If you call after 8pm or on weekends, call the Hospital at [phone] and ask to speak to the Chha ed special education teacher and the cut out operator will contact that person for you. When should you call for help? Call [phone] anytime you think you may need emergency [...] any problems. Where can you learn more? [facility] View your After Visit Summary and more online at [email or web address] If you would like to provide feedback about your hospital experience, please call the Office of Patient and Family Relations at . If you have received this After Visit Summary in error, please immediately return it in person to the department, or notify the [facility] Privacy Office by calling toll free at between the hours of 8AM and 5PM to arrange for our retrieval of the documents at no cost to you. Content Version: 12.2 ?? 1410-5709 [employer]. Care instructions adapted under license by [facility]. If you have questions about a medical condition or this instruction, always ask your healthcare professional. [employer] disclaims any warranty or liability for [...] occurs, please contact your Doctor. Please call [phone] before 8pm Mon-Fri with problems, questions or concerns. If you call after 8pm or on weekends, call the Hospital at [phone] and ask to speak to the Chha ed special education teacher and the cut out operator will contact that person for you. When should you call for help? Call [phone] anytime you think you may need emergency [...] any problems. Where can you learn more? [facility] View your After Visit Summary and more online at [email or web address] If you would like to provide feedback about your hospital experience, please call the Office of Patient and Family Relations at . If you have received this After Visit Summary in error, please immediately return it in person to the department, or notify the [facility] Privacy Office by calling toll free at between the hours of 8AM and 5PM to arrange for our retrieval of the documents at no cost to you. Content Version: 12.2 ?? [phone] [employer]. Care instructions adapted under license by [facility]. If you have questions about a medical condition or this instruction, always ask your healthcare professional. [employer] disclaims any warranty or liability for your [...] 21 (FLONASE) 50 mcg/actuation Nare route daily [place], Suspension as needed. fluorouraciL (EFUDEX) 5 % [...] ischemia I99.8 ??? Coronary artery disease involving seneca coronary artery of seneca heart without angina [id number] ??? HFrEF (heart failure with reduced ejection [...] 08/08/2022 Office Visit Gastroenterology Negra Collins MD [facility] GASTROENTEROLOGY DEPT [place], [place] [address] (Wo rk) 09/05/2022 Appointment Cardiology Trinity Reid MD [facility] CARDIOLOGY [place], [place] [address] (Wo rk) 09/05/2022 Office Visit Cardiology Trinity Reid MD [facility] CARDIOLOGY [place], [place] [address] (Wo rk) documented as of this [...] Hospital Range Method Time Signature UPPER GI [facility] [employer] ENDOSCOPY Endoscopy Procedure Date: 06/25/2022 10:33 AM ? Patient Name: Koko Zamora ? Date of : 1940 ? Age: 81 ? Order #: [id number] ? Instrument Name: [id number]- [id number] ? Procedure: ? Upper GI endoscopy Indications: ? Recent gastrointestinal bleeding Providers: ? Giovani Ponce, Isi puente, ? Brissa Vee RN, Darrell ? Confalone Referring MD: ?[facility]: ? Propofol per Anesthesia Complications: ? No [...] edison th, and ? advanced to the proximal j [...] Component Value Ref Test Analysis Performed At [facility] Method Time Signature COLONOSCOPY [facility] [employer] Endoscopy Procedure Date: 06/25/2022 10:33 AM ? Patient Name: Koko Zamora ? Date of : 1940 ? Age: 81 ? Order #: [id number] ? Instrument Name: [id number]- [id number] ? Procedure: ? Colonoscopy Indications: ? Gastrointestinal bleeding Providers: ? Isi Munoz, ? Brissa Vee, DION, Juvenal ? Confalone [...] Procedure Code(s): ? --- Professional --- ? 60665, Colonoscopy, flexib le; with ? 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 All rights reserved. The codes documented in this report are preliminary and upon institution director review may be revised to meet current compliance requirements. Attending Participation: ? I personally performed the entire procedure. ? Giovani Puente Kris, 06/25/2022 12:03:30 PM Number of Addenda: 0 [...] (CANCELED) 1100 (New Bag - Provider: Mame Peterson, RN) 100 mL/hr, Intravenous, CONTINUOUS, Star ting on Fri06/25/22 at 1100, Until Fri06/25/22 at 1258, Endoscopy (Day of Procedure) documented in this encounter Care Teams Engineer Automated Equipment Relationship Specialty Start Date End Date Bobby Das MD PCP - General 10/02/[address] [place] [address] [place] [address] documented as of this encounter
--- OUTSIDE RECORDS SUMMARY | 2022-07-05 12:34 | XMS_ITS | Encounter Summary ---
:1940 Author Organization [facility] [place] [address] Care Team Providers Name Role Phone Bobby Das MD Primary Care Provider Reason for Visit Auth/Cert Specialty Diagnoses / Procedures Referred By Contact Refer red To Contact Diagnoses GIB (gastrointestinal bleeding) Abe [facility] [place] [address] Referral ID Status Reason Start Date Expiration Date Visits Requ ested Visits Authorized [id number] 1 1 Encounter Details Date Type Department Care Team Description 05/31/2022 Anesthesia Event Gastroenterology at [facility] Elmer Johnson MD [facility] [place] [address] [facility] Yogi Machado CRNA [facility] [place] [address] [place] [address] Anesthesia Record Procedure Summary Procedure Name [...] fossa)Angella RN Hunter, Alysia O, RN right; aapq-aeq-qylvjw catheter system; 20 gauge; no longer indicated, [...] Procedure Summary Date: 05/31/22 Room / Location: [facility] ENDO 3 / [facility] ENDOSCOPY Anesthesia Start: 1603 Anesthesia Stop: 1657 Procedures: EGD, UPPER GI ENDOSCOPY (N/A Trunk) EGD, W CONTROL OF BLEEDING, ANY METHOD Diagnosis: (melena) Surgeons: Giovani Ponce MD Responsible Provider: Elmer Johnson MD Anesthesia Type: MAC ASA Status: 3 All Anesthesia Providers: Anesthesiologist: Elmer Johnson MD DIRECTOR SPEECH: Yogi Dawkins CRNA Vitals Value Taken Time BP 95/62 05/31/22 1720 Temp Pulse Resp 18 05/31/22 1720 SpO2 99 % 05/31/22 1720 Pain Level 0 05/31/22 1720 Patient Location: PACU/[facility] Level of Consciousness: Awake and [...] IR Biopsy Spine 07/20/2019 Bobby Marshall MD [facility] INTERVENTIONL RAD ??? IR VERTEBROPLASTY LUMBAR MULTIPLE LEVELS 07/20/2019 IR Vertebroplasty Lumbar Multiple Levels 07/20/2019 Bobby Marshall MD [facility] INTERVENTIONL RAD ??? IR VERTEBROPLASTY THORACIC SINGLE LEVEL 10/25/2020 IR Vertebroplasty Thoracic Single Level 10/25/2020 Matt Chisholm MD [facility] INTERVENTIONL RAD ??? PRO EMBLC/THRMBC FEMORAL POPLITEAL AORTO-ILIAC ARTERY Left 05/15/2022 EMBOLECTOMY OR THROMBECTOMY, FEMOROPOPLITEAL, AORTOILIAC ARTERY BY LEG INCISION (WRVU 19.48) performed by Fito Summers MD at [facility] MAIN OR ??? PRO UPPER GI ENDOSCOPY, CTRL BLEED 05/31/2022 EGD, W CONTROL OF BLEEDING, ANY METHOD performed by Giovani Ponce MD at [facility] ENDOSCOPY ??? PRO UPPER GI ENDOSCOPY, DIAGNOSTIC N/A 05/31/2022 EGD, UPPER GI ENDOSCOPY performed by Giovani Ponce MD at [facility] ENDOSCOPY Social History Tobacco Use ??? [...] risks discussed with patient. Plan discussed with DIRECTOR SPEECH. Anesthesia Screening documented in this encounter Plan of Treatment Upcoming Encounters Date Type Specialty Care Team Description 08/08/2022 Office Visit Gastroenterology Negra Collins MD [facility] GASTROENTEROLOGY DEPT [place], [place] [address] (Wo rk) 09/05/2022 Appointment Cardiology Trinity Reid MD [facility] CARDIOLOGY [place], [place] [address] (Wo rk) 09/05/2022 Office Visit Cardiology Trinity Reid MD [facility] CARDIOLOGY [place] [address] (Wo rk) documented as of this [...] mg documented in this encounter Care Teams Sales Representative Graphic Art Relationship Specialty Start Date End Date Bobby Das MD PCP - General 10/02/[address] [place] [address] [place] [phone] documented as of this encounter
--- OUTSIDE RECORDS SUMMARY | 2022-07-05 12:34 | XMS_ITS | Encounter Summary ---
:1940 Author Organization [facility] [place] [address] Care Team Providers Name Role Phone Bobby Das MD Primary Care Provider Reason for Referral Diagnostic Test (Routine) - Authorized Specialty Diagnoses / Procedures Referred By Contact Refer red To Contact Cardiology Diagnoses HFrEF (heart failure with reduced ejection fraction) Alan Reid MD [facility] Non-Inv Card Lab Procedures [place]chocardi[place] [address] [place] [address] Fax: Referral ID Status Reason Start Expiration Visits Visits Date Date Requested Authorized [id number] Authorized Specialty 06/13/2022 06/13/2023 1 1 Service Requested Reason for Visit Consultation (Routine) - Closed Specialty Diagnoses / Procedures Referred By Contact Refer red To Contact Cardiology Diagnoses HFrEF (heart failure with reduced ejection fraction) Paroxysmal atrial fibrillation Post-hospital follow-up, s/p PCI with stenting, heart failure Nasrin Parra PA [facility] Cardiology [address] [facility] [place] [address] [place] [address] Referral ID Status Reason Start Date Expiration Date Visits V isits Requested Authorized [id number] Closed Consult, 05/21/2022 05/21/2023 1 1 Test & Treat Encounter Details Date Type Department Care Team Description 06/13/2022 Office Visit Cardiology at [facility] Alan Reid Coronary artery disease invo lving chitina coronary artery of chitina heart without angina pectoris; [facility] MD Kurt HFrEF (heart failure with reduced ejecti on fraction); Drive [facility] Permanent [place] [address] CARDIOLOGY [phone] [place], [place] [address] Social History Tobacco Use Types [...] from the original note were not included. [facility] [place] [address] CARDIOLOGY OUTPATIENT PROGRESS NOTE PRIMARY CARE PROVIDER: Bobby Das MD REFERRING PROVIDER: Nasrin Parra PROBLEM LIST: Patient Active Problem List Diagnosis ??? 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 Hypertriglyceridemia ??? Adhesive [...] 3 ??? fluticasone propionate (FLONASE) 50 mcg/actuation [place], Suspension 1 spray by Each Nare route [...] healing well. Markedly diminished left radial pulse. RUG TOUCH UP PAINTER: Normal mentation. Psych: Appropriate affect. Labs: Lab [...] device therapy possiblyincluding AV node ablation and BRAIN PICKER-D. Coronary artery disease involving chitina coronary artery of chitina heart without angina pectoris His coronary disease [...] for consideration of AV node ablation and BRAIN PICKER-D Patient Instructions ??? 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 documented in this encounter Plan of Treatment Upcoming Encounters Date Type Specialty Care Team Description 08/08/2022 Office Visit Gastroenterology Negra Collins MD [facility] DR GASTROENTEROLOGY DEPT [place], [place] [address] (Wo rk) 09/05/2022 Appointment Cardiology Trinity Reid MD [facility] CARDIOLOGY [place], [place] [address] (Wo rk) 09/05/2022 Office Visit Cardiology Trinity Reid MD [facility] CARDIOLOGY [place], [place] [address] (Wo rk) Scheduled Orders Name Type Priority Associated Order Schedule Diagnoses Echocardiogram Echocardiography Routine HFrEF (heart Expected: Transthoracic failure with 08/13/2022, reduced ejection Expires: fraction) 02/12/2023 documented as of this encounter Visit Diagnoses Diagnosis 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
--- OUTSIDE RECORDS SUMMARY | 2022-07-05 12:34 | XMS_ITS | Encounter Summary ---
:1940 Author Organization [facility] [place] [address] Care Team Providers Name Role Phone Bobby Das MD Primary Care Provider Reason for Visit Reason Comments Skin Lesion Consultation (Routine) - Closed Specialty Diagnoses / Procedures Referred By Contact Refer red To Contact Dermatology Diagnoses Lesion on right eye = hx of skin cancer Bobby Das MD [facility] Dermatology Procedures Lesion on right eye = hx of skin cancer [address] [facility] [address] [place] [address] [place] [address] Fax: Referral ID Status Reason Start Date Expiration Date Visits Requ ested Visits Authorized [id number] Closed 04/22/2022 04/22/2023 1 1 Encounter Details Date Type Department Care Team Description 06/10/2022 Office Visit Dermatology at Loretta Amanda, Neoplasm of Road unspecified behavior [address] [facility] [place] [address] [address] and skin [phone] DERMATOLOGY [place] [address] Social History Tobacco Use Types Packs/Day Years [...] nevi N SCC N BCC 2015: right congregation, BCC s/p mohs 09/2018: right eyebrow, BCC [...] N/A RTC: Pending pathology []Note routed to press secretary []Recall placed in scheduling system []Appointment scheduled at checkout Scribe attestation: Sidney Higgins and Loretta Gomez CMA performed the documentation for this encounter in the presence of and acting as a scribe for Noel Burgos MD. I performed the above scribed service and agree with the accuracy of the documentation in this encounter. Reviewed and signed by: Noel Burgos MD Dermatology [facility] Loretta Cohen MD - 06/10/2022 11:00 AM EDT DERMATOLOGY TELEPHONE NOTE Koko Zamora 06/17/2022 [id number] Reason for call: Discuss biopsy results I [...] 08/08/2022 Office Visit Gastroenterology Negra Collins MD [facility] GASTROENTEROLOGY DEPT [place], [place] [address] (Wo bob) 09/05/2022 Appointment Cardiology Trinity Reid MD [facility] CARDIOLOGY [place], [place] [address] (Rebekah rojas) 09/05/2022 Office Visit Cardiology Trinity Reid MD [facility] ER DR CARDIOLOGY [place] [address] (Wo rk) documented as of this encounter Procedures Procedure Name Priority Date/Time Associated Diagnosis Comme nts SPECIMEN TO Routine 06/10/2022 1:20 PM Neoplasm of Results f or this PATHOLOGY EDT unspecified behavior procedu re are in of bone, soft the results tissue, and skin section. SURGICAL PATHOLOGY Routine 06/10/2022 11:43 AM Re sults for this REPORT EDT procedure are i n the results section. documented in this encounter Results Specimen to Pathology (06/10/2022 1:20 PM EDT) Specimen Anatomical Collection Method Collection Time Receive d Time (Source) Location / / Volume Laterality AP Specimen 06/10/2022 1:20 PM 2 1:20 EDT PM EDT Narrative [facility] - 06/10/2022 1:20 PM EDT Specimen requisition ordered. ??Separate Pathology report to follow Loretta Cohen MD PATHOLOGY/CYTOLOGY ORDERABLE S Performing Organization Address City/State/[place] [address] Surgical Pathology Report (06/10/2022 11:43 AM EDT) Component Value Ref Test Analysis Performed At [facility] g[facility] Range Method Time Signature Surgical [id number] ? Location: [facility] Report The signing pathologist has (i) examined the relevant preparation(s) for the [facility] specimen(s) and (ii) rendered or confirmed the diagnosis(es) . HOSPITAL LABORATORY . ?Surgic al Pathology DIAGNOSIS Right lateral eyebrow, skin shave biopsy: - ??Basal cell carcinoma, no dular pattern, transected at the peripheral and deep specimen edges Electronically signed by: ?Delroy CARCAMO, PhD, Ian Verified: ??06/12/2022 14:33 ??Dermatopathologist Performed at: ??-[facility] Dept. of Pathology, [place], [place] SPECIMEN(S) SUBMITTED A - right lateral [...] Organization Address City/State/[place] [address] [facility] [address] [address] documented in this encounter Visit Diagnoses Diagnosis Neoplasm of unspecified behavior of bone , soft tissue, and skin documented in this encounter Care Teams Electric Truck Operator Relationship Specialty Start Date End Date Bobby Das MD PCP - General 10/02/[address] [place] [address] [place] [address] documented as of this encounter
--- OUTSIDE RECORDS SUMMARY | 2022-07-05 12:34 | XMS_ITS | Encounter Summary ---
:1940 Author Organization [facility] [place] [address] Care Team Providers Name Role Phone Bobby Das MD Primary Care Provider Reason for Referral Consultation (Routine) - Authorized Specialty Diagnoses / Procedures Referred By Contact Refer red To Contact Gastroenterology Diagnoses Adenomatous polyp of colon, unspecified part of colon Colonoscopy 06/25/22, discussed w/Dr. Ponce needs to be seen in clinic to discuss polyp / removal iso plavix & DOAC Isi Celaya MD [facility] Gastro [address] [facility] D [facility] [place] [address] [place] [address] Phone: Fax: Referral ID Status Reason Start Date Expiration Visits Visits Date Requested Authorized [id number] Authorized Consult, 06/25/2022 06/25/2023 1 1 Test & Treat Scheduling Instructions To be seen in ~2mo Encounter Details Date Type Department Care Team Description 06/25/2022 Orders Only Gastroenterology at [facility] [place] Isi Celaya Adenomatous polyp of [facility] Bobby Mera [place], [place] [address] [facility] part of colon [phone] [place] [address] Social History Tobacco Use Types Packs/Day Years [...] 08/08/2022 Office Visit Gastroenterology Negra Collins MD [facility] DR GASTROENTEROLOGY DEPT [place] [address] (Wo rk) 09/05/2022 Appointment Cardiology Trinity Reid MD [facility] CARDIOLOGY [place], [place] [address] (Wo rk) 09/05/2022 Office Visit Cardiology Trinity Reid MD [facility] CARDIOLOGY [place], [place] [address] (Wo rk) Scheduled Referrals Name Type Priority Associated Order Schedule Diagnoses Referral to Outpatient Routine Adenomatous polyp Ordered: Gastroenterology Referral of colon, 06/25/2022 unspecified part of colon documented as of this encounter Visit Diagnoses Diagnosis Adenomatous polyp of colon, unspecified part of colon documented in this encounter Care Teams Spiritual Counselor Relationship Specialty Start Date End Date Bobby Das MD PCP - General 10/02/[address] [place] [address] [place] [phone] documented as of this encounter
--- OUTSIDE RECORDS SUMMARY | 2022-07-05 12:34 | XMS_ITS | Encounter Summary ---
:1940 Author Organization [facility] [place] [address] Care Team Providers Name Role Phone Bobby Das MD Primary Care Provider Reason for Referral Consultation (Routine) - Authorized Specialty Diagnoses / Procedures Referred By Contact Refer red To Contact Diagnoses HFrEF (heart failure with reduced ejection fraction) Coronary artery disease involving [place] coronary artery of [place] heart without angina pectoris Alan Reid MD [facility] [place] [address] Referral ID Status Reason Start Date Expiration Visits Visits Date Requested Authorized [id number] Authorized Consult, 06/20/2022 12/17/2022 36 36 Test & Treat Encounter Details Date Type Department Care Team Description 06/20/2022 Orders Only Cardiology at [facility] Alan Reid HFrEF (heart failure with re duced ejection fraction); [facility] MD Kurt Coronary artery disease involving [place] coronary artery of [place] heart [place] [address] CARDIOLOGY [phone] [place], [place] [address] (Wo rk) Social History Tobacco [...] 08/08/2022 Office Visit Gastroenterology Negra Collins MD [facility] DR GASTROENTEROLOGY DEPT [place], [place] [address] (Wo rk) 09/05/2022 Appointment Cardiology Trinity Reid MD [facility] CARDIOLOGY [place], [place] [address] (Wo rk) 09/05/2022 Office Visit Cardiology Trinity Reid MD [facility] CARDIOLOGY [place], [place] [address] (Wo rk) Scheduled Referrals Name Type Priority Associated Diagnoses Order S chedule Referral to Outpatient Referral Routine HFrEF (heart failure Ordered: Cardiac Rehab with reduced 06/20/2022 ejection fractio n) Coronary artery disease involving [place] coronary artery of [place] heart without angina pectoris documented as of this encounter Visit Diagnoses Diagnosis HFrEF (heart failure with reduced ejecti on fraction) Coronary artery disease involving [place] coronary artery of [place] heart without angina pectoris documented in this encounter Care Teams Sizing Sponger Relationship Specialty Start Date End Date Bobby Das MD PCP - General 10/02/[address] [place] [address] [place] [phone] documented as of this encounter
--- OUTSIDE RECORDS SUMMARY | 2022-07-05 12:34 | XMS_ITS | Encounter Summary ---
:1940 Author Organization [facility] [place] [address] Care Team Providers Name Role Phone Bobby Das MD Primary Care Provider Encounter Details Date Type Department Care Team Description 07/01/2022 Telephone Dermatology at [facility], Zainab Dupree, TECHNICAL TRAINING COORDINATOR [address] [place] [address] Social History Tobacco Use Types Packs/Day [...] this encounter Miscellaneous Notes Telephone Encounter - Loretta Cohen MD - 07/02/2022 4:34 PM EDT Called Koko today to discuss recent cancellation of mohs surgery. Patient expresses concerns that he is on blood thinners. We discussed that mohs is performed on patient's while they are on blood thinners and there is no need for them to be discontinued. Koko understands. We discussed risks of nothaving surgery including continued growth of tumor and progression. Patient would like to rescheduleafter he is done with cardiac rehab. Will route chart back to scheduling. Telephone Encounter - Zainab Sommer CMA - 07/01/2022 10:04 AM EDT Patient called and cancelled his 09/02/[address] appointment for Moh[address] with Dr Mendenhall, he declines to reschedule Mohs Surgery at this time for basal cell carcinoma, nodular located on the right lateral eyebrow. Patient verbalized understanding that Mohs surgery was recommended by their referring provider. I also advised patient I would be routing chart back to referring provider for follow up. documented in this encounter Plan of Treatment Upcoming Encounters Date Type Specialty Care Team Description 08/08/2022 Office Visit Gastroenterology Negra Collins MD [facility] DR GASTROENTEROLOGY DEPT [place], [place] [address] (Wo rk) 09/05/2022 Appointment Cardiology Trinity Reid MD [facility] CARDIOLOGY [place], [place] [address] (Wo rk) 09/05/2022 Office Visit Cardiology Trinity Reid MD [facility] CARDIOLOGY [place], [place] [address] (Wo rk) documented as of this encounter Visit Diagnoses Not on filedocumented in this encounter Care Teams Renewable Energy Engineer Relationship Specialty Start Date End Date Bobby Das MD PCP - General 10/02/[address] [place] [address] [place] [phone] documented as of this encounter
--- OUTSIDE RECORDS SUMMARY | 2022-07-05 12:34 | XMS_ITS | Encounter Summary ---
:1940 [place] [address] Care Team Providers Name Role Phone Bobby Das MD Primary Care Provider Encounter Details Date Type Department Care Team Description 06/13/2022 Tech Visit Vascular Lab at [facility], Dominga [place]resh[place] [address] Social History Tobacco Use Types Packs/Day [...] 08/08/2022 Office Visit Gastroenterology Negra Collins MD [facility] DR GASTROENTEROLOGY DEPT [place], [place] [address] (Wo rk) 09/05/2022 Appointment Cardiology Trinity Reid MD [facility] CARDIOLOGY [place], [place] [address] (Wo rk) 09/05/2022 Office Visit Cardiology Trinity Reid MD [facility] CARDIOLOGY [place], [place] [address] (Wo rk) documented as of this encounter Procedures Procedure Name Priority Date/Time Associated Diagnosis Comme nts JOSSELYN, LEGS, MULTIPLE Routine 06/13/2022 7:13 AM Limb ischemia R esults for this LEVELS EDT procedure are i n the results section. documented in this encounter Results JOSSELYN, legs, multiple levels (06/13/2022 7:13 AM EDT) Component Value Ref Test Analysis Performed At [facility] Range Method Time Signature VB Text Department: Vascular Surgery Lab VASCUBASE Report Patient: [id number] (ETTA BAH) CPT: 63442 Referring Physician: FITO SUMMERS ?? Phone: Indications: s/p L WEB UI SOFTWARE ENGINEER endart. Diabetes mellitus: no Findings: Right ?Pressure [...] disorder documented in this encounter Care Teams Geothermal Electrical Engineer Relationship Specialty Start Date End Date Bobby Das MD PCP - General 10/02/[address] [place] [address] [place] [phone] documented as of this encounter
--- OUTSIDE RECORDS SUMMARY | 2022-07-05 12:34 | XMS_ITS | Encounter Summary ---
:1940 [place] [address] Care Team Providers Name Role Phone Bobby Das MD Primary Care Provider Encounter Details Date Type Department Care Team Description 06/13/2022 Office Visit Vascular Surgery at [facility] Fito Summers MD Limb ischemia [facility] [place] [phone] VASCULAR SURGERY [phone] [place] [phone] (Wo rk) Social History Tobacco Use Types [...] s/p repair Overview Note: Surgery done at [facility] in 2000 ??? Hypertriglyceridemia Overview Note: ??? [...] with ABIs. Fito Summers MD Vascular Surgery [facility] Emily Power CMA - 06/13/2022 8:00 AM EDT Handwashing performed, gloves on.As instructed by windy removed on LLE medial and lateral aspect, cleansed after staple remover, steri strips applied. Gloves off, handwashing performed. documented in this encounter Plan of Treatment Upcoming Encounters Date Type Specialty Care Team Description 08/08/2022 Office Visit Gastroenterology Negra Collins MD [facility] GASTROENTEROLOGY DEPT [place], [place] [address] (Wo rk) 09/05/2022 Appointment Cardiology Trinity Reid MD [facility] [address] [place], [place] [address] (Wo rk) 09/05/2022 Office Visit Cardiology Trinity Reid MD [facility] [address] [place], [place] [address] (Wo rk) documented as of this encounter Visit Diagnoses Diagnosis Limb ischemia Unspecified circulatory system disorder documented in this encounter Care Teams Golf Course Patroller Relationship Specialty Start Date End Date Bobby Das MD PCP - General 10/02/[address] [place] [address] [place] [phone] documented as of this encounter
--- OUTSIDE RECORDS SUMMARY | 2022-07-05 12:34 | XMS_ITS | Encounter Summary ---
:1940 Author Organization [facility] [place] [address] Care Team Providers Name Role Phone Bobby Das MD Primary Care Provider Encounter Details Date Type Department Care Team Description 06/25/2022 Hospital Encounter Gastroenterology at [facility] Giovani Ponce, [facility] [place] [address] [facility] [phone] [place] [address] Social History Tobacco Use Types Packs/Day [...] the day after the procedure, use an htha-dfv-bhonlmf spray to numb your throat. Sucking on [...] occurs, please contact your Doctor. Please call [phone] before 8pm Mon-Fri with problems, questions or concerns. If you call after 8pm or on weekends, call the Hospital at [phone] and ask to speak to the [employer] research home economist and the wood web weaving machine operator will contact that person for you. When should you call for help? Call [phone] anytime you think you may need emergency [...] any problems. Where can you learn more? [facility] View your After Visit Summary and more online at [email or web address] If you would like to provide feedback about your hospital experience, please call the Office of Patient and Family Relations at . If you have received this After Visit Summary in error, please immediately return it in person to the department, or notify the [facility] Privacy Office by calling toll free at between the hours of 8AM and 5PM to arrange for our retrieval of the documents at no cost to you. Content Version: 12.2 ?? 6110-6153 [employer]. Care instructions adapted under license by [facility]. If you have questions about a medical condition or this instruction, always ask your healthcare professional. [employer] disclaims any warranty or liability for your [...] occurs, please contact your Doctor. Please call [phone] before 8pm Mon-Fri with problems, questions or concerns. If you call after 8pm or on weekends, call the Hospital at [phone] and ask to speak to the [employer] research home economist and the wood web weaving machine operator will contact that person for you. When should you call for help? Call [phone] anytime you think you may need emergency [...] any problems. Where can you learn more? [facility] View your After Visit Summary and more online at [email or web address] If you would like to provide feedback about your hospital experience, please call the Office of Patient and Family Relations at . If you have received this After Visit Summary in error, please immediately return it in person to the department, or notify the [facility] Privacy Office by calling toll free at between the hours of 8AM and 5PM to arrange for our retrieval of the documents at no cost to you. Content Version: 12.2 ?? 3886-6056 [employer]. Care instructions adapted under license by [facility]. If you have questions about a medical condition or this instruction, always ask your healthcare professional. [employer] disclaims any warranty or liability for [...] 21 (FLONASE) 50 mcg/actuation Nare route daily [place], Suspension as needed. fluorouraciL (EFUDEX) 5 % [...] ischemia I99.8 ??? Coronary artery disease involving [place] coronary artery of [place] heart without angina [id number] ??? HFrEF (heart failure with reduced ejection [...] 08/08/2022 Office Visit Gastroenterology Negra Collins MD [facility] GASTROENTEROLOGY DEPT [place], [place] [address] (Wo rk) 09/05/2022 Appointment Cardiology Trinity Reid MD [facility] CARDIOLOGY [place], [place] [address] (Wo rk) 09/05/2022 Office Visit Cardiology Trinity Reid MD [facility] ER DR CARDIOLOGY [place] [address] (Wo rk) documented as of this [...] Value Ref Test Analysis Performed At [facility] Range Method Time Signature UPPER GI [facility] ENDOSCOPY Endoscopy Procedure Date: 06/25/2022 10:33 AM ? Patient Name: Koko Zamora ? Date of : 1940 ? Age: 81 ? Order #: [id number] ? Instrument Name: [id number]- [id number] ? Procedure: ? Upper GI endoscopy Indications: ? Recent gastrointestinal bleeding Providers: ? Giovani oPnce, Isi puente, ? Brissa Vee RN, Juvenal ? Confalone Referring MD: ?[facility]: ? Propofol per Anesthesia Complications: ? No [...] Endoscope w as ? introduced through the [facility], and ? advanced to the second par [...] [facility] Method Time Signature COLONOSCOPY [facility] Endoscopy Procedure Date: 06/25/2022 10:33 AM ? Patient Name: Koko Zamora ? Date of : 1940 ? Age: 81 ? Order #: [id number] ? Instrument Name: [id number]- [id number] ? Procedure: ? Colonoscopy Indications: ? Gastrointestinal [...] Procedure Code(s): ? --- Professional --- ? 78265, Colonoscopy, flexib le; with ? control of [...] neoplasm of sigmoid ? colon CPT copyright 202 [employer]. All rights reserved. The codes documented in this report are preliminary and upon parking enforcement officer review may be revised to meet current [...] Procedure) documented in this encounter Care Teams Health Commissioner Relationship Specialty Start Date End Date Bobby Das MD PCP - General 10/02/[address] [place] [address] [place] [phone] documented as of this encounter
--- OUTSIDE RECORDS SUMMARY | 2022-07-05 12:34 | XMS_ITS | Encounter Summary ---
:1940 [place] [address] Care Team Providers Name Role Phone Bobby Das MD Primary Care Provider Reason for Visit Reason Comments Dizziness Auth/Cert Specialty Diagnoses / Procedures Referred By Contact Refer red To Contact Diagnoses GIB (gastrointestinal bleeding) Abe [facility] [place] [address] Referral ID Status Reason Start Date Expiration Date Visits Requ ested Visits Authorized [id number] 1 1 Encounter Details Date Type Department Care Team Description 05/31/2022 - Hospital Encounter Intermediate Special Dixon Hinds MD [facility] [place] [address] GIB 06/02/2022 Care [place] [address] (gastrointestinal [facility] [place] [address] bleeding) ([facility] [place] [address] Dx) [place] [address] Social History Tobacco Use Types Packs/Day Years [...] Valle MD - 06/02/2022 12:48 PM EDT [facility] Medicine - Discharge Summary Patient Name: [...] switching to a different bloodthinner with the warehouse processor outpatient. Call your doctor or seek medical [...] switchingto a different blood thinner with your warehouse processor as an outpatient Stopped Medications - Aspirin - Valsartan - Speak with your warehouse processor about the timing of restarting this Follow-up Appointments Future Appointments Date Time Provider Department Center 06/10/2022 11:00 AM Loretta Cohen MD [facility] 06/13/2022 7:30 AM Edson [place]os [place] [facility] VAS LAB [facility] 06/13/2022 8:00 AM Fito Summers MD [facility] SURG [facility] 06/13/2022 10:00 AM Alan Reid MD [address] Your Inpatient Medical Team at [facility] Name(s) of your inpatient provider(s): Dr. John Ames For questions regarding issues relating to your hospitalization on the Hospital Medicine Service, please contact your inpatient physician through the [facility] Hostess Party Sales Representative ([phone]. Issues after hours and on weekends will be handled by the Hospitalist staff on-call. Your Primary Care Provider Bobby Das MD [phone] Future Appointments and Orders Future Appointments and Orders Future Appointments Provider Department Dept Phone 06/10/2022 11:00 AM Loretta Cohen MD Dermatology [facility] Arrive at: Industrial Painter [address] [place] [phone] 06/13/2022 7:30 AM Edson [place]os [place] Vascular Lab at [facility] Arrive at: Industrial Painter Area [phone] 06/13/2022 8:00 AM Fito Summers MD Vascular Surgery at [facility] Arrive at: Industrial Painter Area 06/13/2022 10:00 AM Alan Reid MD Cardiology at [facility] Arrive at: Industrial Painter Area [phone] For questions regarding this document or issues relating to this hospitalization on the Medical Service, please contact your inpatient physician through the [facility] Hostess Party Sales Representative . Issues after hours and on weekends [...] switching to a different bloodthinner with the warehouse processor outpatient. Call your doctor or seek medical [...] switchingto a different blood thinner with your warehouse processor as an outpatient Stopped Medications - Aspirin - Valsartan - Speak with your warehouse processor about the timing of restarting this Follow-up Appointments Future Appointments Date Time Provider Department Center 06/10/2022 11:00 AM Loretta Cohen MD [facility] 06/13/2022 7:30 AM Edson [place] [facility] VAS LAB ILDA POWELL 06/13/2022 8:00 AM Fito Summers MD [facility] SUR[facility] 06/13/2022 10:00 AM Alan Reid MD [facility] CARD 4A [facility] Your Inpatient Medical Team at [facility] Name(s) of your inpatient provider(s): Dr. John Ames For questions regarding issues relating to your hospitalization on the Hospital Medicine Service, please contact your inpatient physician through the [facility] Hostess Party Sales Representative [phone]. Issues after hours and on weekends will be handled by the Hospitalist staff on-call. Your Primary Care Provider Bobby Das MD [phone] documented in this encounter Medications at Time [...] 04/12/20 21 (FLONASE) 50 mcg/actuation Nare route [place], Suspension daily as needed. fluorouraciL (EFUDEX) 5 [...] spent >30 minutes (Day of Discharge Code 67896) involved in the final examination of the [...] of any medication changes and additional plans. Kutr Ames MD - 06/01/2022 8:32 AM EDT Images from the original note were not included. Hospital Medicine Progress Note [place] Team - Pager #[phone] Admit Date: 05/31/2022 Name: Koko Zamora : [...] cardiology to discuss antiplatelet (ISO bleed and halfway), following. ?? #CAD s/p stenting recently #HFrEF [...] Kurt Ames MD Internal Medicine, PGY-1 Medicine [place] Team #[id number] Associated attestation - John Jolley MD - 06/01/2022 5:02 PM EDT [facility] Medicine -- Attending Progress Note Please [...] of two midnights or is on the [facility] inpatient only procedure list (status C) due to: GI Bleeding documented in this encounter H&P Notes Mahendra Victor MD - 05/31/2022 4:33 PM EDT Images from the original note were not included. [facility] Medicine (#[id number]) History and Physical Patient info: Name: Koko Zamora : 1940 PCP: Bobby Das MD PCP phone number: [phone] Date of Admission: 05/31/2022 ( Hospital Day [...] IR Biopsy Spine 07/20/2019 Bobby Marshall MD [facility] INTERVENTIONL RAD ??? IR VERTEBROPLASTY LUMBAR MULTIPLE LEVELS 07/20/2019 IR Vertebroplasty Lumbar Multiple Levels 07/20/2019 Bobby Marshall MD [facility] INTERVENTIONL RAD ??? IR VERTEBROPLASTY THORACIC SINGLE LEVEL 10/25/2020 IR Vertebroplasty Thoracic Single Level 10/25/2020 Matt Chisholm MD [facility] INTERVENTIONL RAD ??? PRO EMBLC/THRMBC FEMORAL POPLITEAL AORTO-ILIAC ARTERY Left 05/15/2022 EMBOLECTOMY OR THROMBECTOMY, FEMOROPOPLITEAL, AORTOILIAC ARTERY BY LEG INCISION (WRVU 19.48) performed by Fito Summers MD at [facility] MAIN OR No family history on file. [...] 11 ??? fluticasone propionate (FLONASE) 50 mcg/actuation [place], Suspension as needed. ??? fluorouraciL (EFUDEX) 5 [...] Gas) No results found for: PHART, PO2ART, BKI5CGK, RTB0OQT Microbiology: N/A Pertinent radiology/diagnostic studies: Recent prior [...] Status: Full Arpita Valle MD, PGY-3 05/31/2022 [facility] Medicine # [id number] Attending Staff Admission Documentation I have examined [...] 05/31/2022 3:58 PM EDT Norepinephrine pulled from [facility] for soft BPs. Upon arrival to [...] AM EDT Pt brought to XR by paradichlorobenzene tender Brittany Ramirez MD - 05/31/2022 10:40 AM [...] who have questions please contact the health wild animal caretaker that requested your imaging first. Electronically signed by: Jl Zuluaga MD, [facility] ([phone]), at 05/31/2022 2:39 PM XR Chest PA [...] who have questions please contact the health wild animal caretaker that requested your imaging first. Electronically signed by: Alan Brink MD, [facility] ([phone]), at 05/31/2022 11:33 AM ED Course as [...] recommendations from Brittany Tavares MD Resident 05/31/22 [id number] Associated attestation - Regina Hinds MD - [...] soft blood pressures, MD made aware. LBM BEATER OUT. 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 Patient reported blurry/hazy [...] Heparin gtt - plan to bridge [facility] Discharge planning Increase strength & mobility INDIVIDUALIZED [...] the original note were not included. [facility] [place] [phone] INPATIENT CARDIOLOGY CONSULT NOTE Date of Consultation: 06/01/2022 Admit Date: 05/31/2022 Place of Service: IS86/IS86-A Referring Attending: REGINA HINDS COLEMAN W FRIEDMAN, HARLEY P Responsible Asset Protection Manager: Dr. Rizo Hospital Day 1 day Reason [...] LCX and LCx stent) who presented to [facility] on 05/31/2022 for GI bleed. Patient presented [...] IR Biopsy Spine 07/20/2019 Bobby Marshall MD [facility] INTERVENTIONL RAD ??? IR VERTEBROPLASTY LUMBAR MULTIPLE LEVELS 07/20/2019 IR Vertebroplasty Lumbar Multiple Levels 07/20/2019 Bobby Marshall MD [facility] INTERVENTIONL RAD ??? IR VERTEBROPLASTY THORACIC SINGLE LEVEL 10/25/2020 IR Vertebroplasty Thoracic Single Level 10/25/2020 Matt Chisholm MD [facility] INTERVENTIONL RAD ??? PRO EMBLC/THRMBC FEMORAL POPLITEAL AORTO-ILIAC ARTERY Left 05/15/2022 EMBOLECTOMY OR THROMBECTOMY, FEMOROPOPLITEAL, AORTOILIAC ARTERY BY LEG INCISION (WRVU 19.48) performed by Fito Summers MD at [facility] MAIN OR ALLERGIES: Allergies Allergen Reactions ??? [...] time ??? fluticasone propionate (FLONASE) 50 mcg/actuation [place], Suspension 1 spray by Each Nare route [...] from 05/31/2022 in Intermediate Special Care Unit [facility] ED to Hosp-Admission (Discharged) from 05/15/2022 in Intermediate Cardiac Care Unit [facility] Weight 77.1 kg (170 lb) 1 [...] Neurology: Without focal deficit ECG: Echocardiogram: 05/16/2022 [facility] 05/20/2022 Coronary Angiography: Dominance: Right Left [...] 3.5 guiding catheter and a 3.5 Fr [facility] [place] [address] 20 Mhz. Imaging was successful. Image [...] A premounted 2.75 x 30 mm Rudy Quay (AMPARO) was deployed with a maximum inflation [...] may require modification of this regimen. Consult [facility] Interventional Cardiology for questions. The 1 year [...] Hb drop. Unknown source. has had a [facility] with stent placed and revascularization of left lower extremity within the past two weeks, recently on anticoagulation Unknown source of bleeding TECHNIQUE: Helical CT of the abdomen and pelvis was performed before and after the intravenous administration contrast utilizing GI bleed protocol. Administered 125.0 ml of OMNIPAQUE 350.00 mg/ml. Oral contrast was not administered. COMPARISON: 05/15/2022 from [facility] FINDINGS: GI Tract: Pre-contrast: No [...] who have questions please contact the health wild animal caretaker that requested your imaging first. Electronically signed by: Jl Zuluaga MD, [facility] ([phone]), at 05/31/2022 2:39 PM [facility] 48 Hrs-15 [...] who have questions please contact the health wild animal caretaker that requested your imaging first. Electronically signed by: Alan Brink MD, [facility] ([phone]), at 05/31/2022 11:33 AM LABS Recent Labs [...] on xarelto, ischemic systolic heart failure (recent [facility] 05/20/2022 with 2V disease OM1 and distal RCA, had ostial LCX and LCx stent), recent admission for acutelimb ischemia LLE, where he had left common femoral transverse arteriotomy and primary repair, thromboembolectomy of the SFA, profunda and common femoral artery with 4 compartment fasciotomies, who presented to [facility] on 05/31/2022 for GI bleed. Cardiology consulted [...] attestation for additional insight. Rossy Anaya MD [facility] Automotive Starter Repairer, PGY-5 Inpatient Cardiology Consults Pager #[phone] Please check Qgenda for on-call cardiology consults [...] A&Ox 4. On room air. VSS. LBM: BEATER OUT. Adequate urine output, urinal at bedside, flomax [...] surrogate would be surrogate decision maker per [place] decision making law. (Only good for 180 days) Any patient receiving care in [place] must abide by [place] law. The hierarchy for surrogate decision making [...] (i) The agent with financial power of state attorney or a conservator appointed in accordance [...] walker - rolling Home Address confirmed as: [address] [place] [phone] Social & Family Supports: All names listed below confirmed with patient as current and correct Extended Emergency Contact Information Primary Emergency Contact: Ursula Zamora Address: [address] [place] [id number] [facility] Relation: Spouse Current Care Provided by: [...] Type: *No Product type* / Secondary Insurance: [facility] Secondary Insurance? (Only Medicare A&B): Yes ; Prescription Coverage: Yes Preferred Pharmacy: [id number] - [place], [place] - [address] [facility] [address] [facility] [address] Status: Patient is a : No Primary Care Provider: Bobby Das MD [phone] Patient/Caregiver Goals of Treatment: Patient plans to [...] with transition of care planning. ASH Garcia Tooth Polisher [facility] Medicine/ Medical Specialties Pager- [phone] Plan [...] Operative Note Patient Name: Koko Rioson : [id number] MR#: [id number] Case Date: 05/31/2022 Surgeon: Surgeon(s) and Role: [...] stomach. He has had colonoscopies before in [place] - notes first ever he had 6 polyps removed but last colo 5 yrs ago was normal. He lives in [facility] [place]. Currently light-headedness is improved. No fevers, [...] IR Biopsy Spine 07/20/2019 Bobby Marshall MD [facility] INTERVENTIONL RAD ??? IR VERTEBROPLASTY LUMBAR MULTIPLE LEVELS 07/20/2019 IR Vertebroplasty Lumbar Multiple Levels 07/20/2019 Bobby Marshall MD [facility] INTERVENTIONL RAD ??? IR VERTEBROPLASTY THORACIC SINGLE LEVEL 10/25/2020 IR Vertebroplasty Thoracic Single Level 10/25/2020 Matt Chisholm MD [facility] INTERVENTIONL RAD ??? PRO EMBLC/THRMBC FEMORAL POPLITEAL AORTO-ILIAC ARTERY Left 05/15/2022 EMBOLECTOMY OR THROMBECTOMY, FEMOROPOPLITEAL, AORTOILIAC ARTERY BY LEG INCISION (WRVU 19.48) performed by Fito Summers MD at [facility] MAIN OR SOCIAL HX: Social History Socioeconomic [...] sounds, tympanic to percussion RECTAL: performed with supervisor publications present, no overt masses, fissures, external hemorrhoids, [...] who have questions please contact the health wild animal caretaker that requested your imaging first. Electronically signed by: Alan Brink MD, [facility] ([phone]), at 05/31/2022 11:[address] Abdomen & [...] Negra Collins MD [facility] GASTROENTEROLOGY DEPT [place], [place] [address] (Wo bob) 09/05/2022 Appointment Cardiology Trinity Reid MD [facility] CARDIOLOGY [place], [place] [address] (Wo bob) 09/05/2022 Office Visit Cardiology Trinity Ried MD [facility] ER DR CARDIOLOGY [place], [place] [address] (Wo rk) documented as of [...] EDT) athologist Signature Neutrophils % 61.3 % [facility] LABORATORY Neutr Abs (ANC) 4.44 1.70 - [facility] 6.10 [facility] x10(3)/[facility] LABORATORY Lymphocytes % 25.2 % [facility]OR[facility] Lymphocytes Abs 1.8 0.9 - [address].2 [facility] x10(3)/[facility] LABORATORY Monocytes % 10.0 % [facility] LABORATORY Monocyte Abs 0.7 0.3 - 0.9 [facility] x10(3)/[facility] LABORATORY Eosinophils % 2.1 % [facility] LABOR[facility]ORY Eosinophils Abs 0.2 0.0 - 0.4 [facility] x10(3)/[facility] LABORATORY Basophils % 0.7 % [facility] LABOR[facility]ORY Basophils Abs 0.0 0.0 - [address].1 [facility] x10(3)/[facility] LABORATORY Immature Gran % 0.70 % [facility] LABORATORY Comment: Immature granulocytes(IG's)percentage an d absolute count will include metamyelocytes, myelocytes, and promyelo cytes. Blood smears from CBCs yielding IG's will be scanned manually for concor dance. If this scan disagrees with the automated IG or if promyelocytes are not ed, a manual differential will be performed. Rain Gran Abs 0.05 (H) 0.00 - 0.04 x10(3)/[facility] LABORATORY Specimen Anatomical Collection Method Collection Time Receive d Time (Source) Location / / Volume Laterality Blood 06/02/2022 8:20 AM 8:25 EDT AM EDT Resulting Agency Comment Spec In Lab Kurt Ames MD HEMATOLOGY ORDERABLES Performing Organization Address City/State/ZIP Code Phon e Number [place] [id number] [facility] LAB[address]ORY [address] (ABNORMAL) Hemogram (06/02/2022 8:20 AM EDT) Analysis Performed At Patho logist Time Signature WBC 7.2 4.0 - 9.5 [place] x10(3)/[facility] LABORATORY RBC 2.74 (L) 4.58 - [place] [facility] 5.54 [facility] x10(6)/[facility] LABORATORY Hemoglobin 8.7 (L) 13.7 - [facility] 16.5 g/dL [facility] LABORATORY Hematocrit 25.7 (L) 40.5 - [facility] 48.5 % [facility] LABORATORY MCV 93.8 (H) 82.9 - [facility] 93.1 [facility] LABORATORY MCH 31.8 27.5 - [place] 32.1 pg [facility] LABORATORY MCHC 33.9 32.0 - [place] 35.7 g/dL [facility] LABORATORY Platelets 260 145 - 357 [facility] x10(3)/[facility] LABORATORY RDWSD 51.0 (H) 36.0 - [place] 45.0 [facility] LABORATORY RDWCV 14.9 (H) 11.4 - [facility] XIAO 13.8 % [facility] LABORATORY MPV 10.0 7.6 - 12.9 [facility] LABORATORY nRBC % Auto 0.0 % [facility] LABORATORY nRBC Abs Auto 0.000 0.000 - [place] 0.000 [facility] x10(3)/[facility] LABORATORY Specimen Anatomical Collection Method Collection Time Receive d Time (Source) Location / / Volume Laterality Blood 06/02/2022 8:20 AM 8:25 EDT AM EDT Resulting Agency Comment Spec In Lab Kurt Ames MD HEMATOLOGY ORDERABLES Performing Organization Address City/[facility]/[place] [address] Heparin (unfractionated) Level (06/02/2022 6:30 AM EDT) athologist Signature Heparin UFH 0.39 IU/mL [facility] LABORATORY Comment: Heparin (anti-Xa) levels should be [...] Organization Address City/State/[place] [address] Heparin (unfractionated) Level (06/02/2022 12:30 AM EDT) athologist Signature Heparin UFH 0.81 IU/mL [facility] LABORATORY Comment: Heparin (anti-Xa) levels should be [...] Victor MD HEMATOLOGY ORDERABLES Performing Organization Address City/[facility]/ZIP Code Phon e Number [address] Magnesium (06/02/2022 12:30 AM EDT) athologist Signature Magnesium 0.83 0.69 - [address].07 [facility] mmol/L [facility] LABORATORY Specimen Anatomical Collection Method Collection Time Receive d Time (Source) Location / / Volume Laterality Blood 06/02/2022 12:30 06/02/2022 AM EDT 12:40 AM EDT Resulting Agency Comment Spec In Lab Mahendra Victor MD CHEMISTRY ORDERABLES Performing Organization Address City/[facility] Phon e Number [address] (ABNORMAL) Basic Metabolic Panel (non-fasting) (06/02/2022 12:30 AM EDT) athologist Signature Glucose Lvl 151 65 - 199 [facility] mg/dL [facility] LABORATORY Comment: Diabetes: >=200 mg/dL plus symp toms BUN 12 10 - 20 mg/dL [facility] LABORATORY Creatinine 0.71 (L) 0.80 - 1.50 mg/dL [facility] LABORATORY Sodium 142 135 - 145 mmol/L [facility] LABORATORY Potassium 3.8 3.5 - 5.0 mmol/L [facility] LABORATORY Comment: Please note: ??Patients with WBC >100,00 0 may have falsely elevated Potassium levels. ??For accurate Potassium quantif ication in these patients send serum separator tube (gold top) for subsequent determinations. ??Contact the Clinical Chemistry Laboratory if there are any qu estions. Chloride 108 (H) 98 - 107 mmol/L [facility] LABORATORY CO2 24 22 - 31 mmol/L [facility]OR[facility] Anion Gap 10 5 - 15 mmol/L [facility] LABORATORY Calcium 8.1 (L) 8.5 - 10.5 mg/dL [facility] LABORATORY Estimated GFR 93 >=60 mL/min/1.73 m?? [facility] LABORATORY Comment: This patient's estimated GFR [...] Organization Address City/State/ZIP Code Phon e Number [place] [phone] HOSPITAL LAB[address]ATORY Drive (ABNORMAL) Differential, Automated (06/01/2022 7:29 PM EDT) P athologist Signature Neutrophils % 68.8 % [facility] LABORATORY Neutr Abs (ANC) 5.34 1.70 - [facility] 6.10 [facility] x10(3)/[facility] LABORATORY Lymphocytes % 19.6 % [facility] LABORATORY Lymphocytes Abs 1.5 0.9 - [address].2 [facility] x10(3)/[facility] LABORATORY Monocytes % 8.1 % [facility] LABORATORY Monocyte Abs 0.6 0.3 - [address].9 [facility] x10(3)/[facility] LABORATORY Eosinophils % 1.8 % [facility] LABORATORY Eosinophils Abs 0.1 0.0 - [address].4 [facility] x10(3)/[facility] LABORATORY Basophils % 0.8 % [facility] LABORATORY Basophils Abs 0.1 0.0 - 0.1 [facility] x[facility](3[facility] LABORATORY Immature Gran % 0.90 % [facility] LABORATORY Comment: Immature granulocytes(IG's)percentage an d absolute count will include metamyelocytes, myelocytes, and promyelo cytes. Blood smears from CBCs yielding IG's will be scanned manually for concor dance. If this scan disagrees with the automated IG or if promyelocytes are not ed, a manual differential will be performed. Rain Gran Abs 0.07 (H) 0.00 - 0.04 x10(3)/[facility] LABORATORY Specimen Anatomical Collection Method Collection Time Receive d Time (Source) Location / / Volume Laterality Blood 06/01/2022 7:29 PM 7:29 EDT PM EDT Resulting Agency Comment Spec In Lab Kurt Ames MD HEMATOLOGY ORDERABLES Performing Organization Address City/State/[place] [address] (ABNORMAL) Hemogram (06/01/2022 7:29 PM EDT) Analysis Performed At Patho logist Time Signature WBC 7.8 4.0 - 9.5 [facility] x10(3)/[facility] LABORATORY RBC 2.65 (L) 4.58 - [place] 5.54 [facility] x10(6)/[facility] LABORATORY Hemoglobin 8.3 (L) 13.7 - [facility] 16.5 g/dL [facility] LABORATORY Hematocrit 24.8 (L) 40.5 - [place] 48.5 % [facility] LABORATORY MCV 93.6 (H) 82.9 - [facility] XIAO 93.1 [facility] LABORATORY MCH 31.3 27.5 - [place] 32.1 pg [facility] LABORATORY MCHC 33.5 32.0 - [facility] XIAO 35.7 g/dL [facility] LABORATORY Platelets 263 145 - 357 [facility] x10(3)/[facility] LABORATORY RDWSD 52.8 (H) 36.0 - [place] 45.0 [facility] LABORATORY RDWCV 15.4 (H) 11.4 - [facility] XIAO 13.8 % [facility] LABORATORY MPV 10.4 7.6 - 12.9 [facility] nRBC % Auto 0.0 % [facility] LABORATORY nRBC Abs Auto 0.000 0.000 - [place] 0.000 [facility] x10(3)/[facility] LABORATORY Specimen Anatomical Collection Method Collection Time Receive d Time (Source) Location / / Volume Laterality Blood 06/01/2022 7:29 PM 2 7:29 EDT PM EDT Resulting Agency Comment Spec In Lab Kurt Ames MD HEMATOLOGY ORDERABLES Performing Organization Address City/[facility]/ZIP Code Phon e Number [address] Heparin (unfractionated) Level (06/01/2022 7:29 PM EDT) P athologist Signature Heparin UFH 0.81 IU/mL [facility] LABORATORY Comment: Heparin (anti-Xa) levels should be [...] Organization Address City/State/[place] [address] (ABNORMAL) Heparin (unfractionated) Level (06/01/2022 11:32 AM EDT) Patholo gist Method Time Signature Heparin UFH 1.05 IU/mL [facility] Level (Critical) [facility] Comment: Critical Result called by [...] Organization Address City/State/[place] [address] (ABNORMAL) Differential, Automated (06/01/2022 5:56 AM EDT) [facility] Method Time Signature Neutrophils % 62.7 % [facility] Neutr Abs (ANC) 6.11 (H) 1.70 - [facility] 6.10 [facility] x10(3)/[facility] LABORATORY Lymphocytes % 23.5 % [facility] Lymphocytes Abs 2.3 0.9 - 3.2 [facility] x10(3)/[facility] LABORATORY Monocytes % 10.0 % [facility] Monocyte Abs 1.0 (H) 0.3 - 0.9 [facility] x10(3)/[facility] LABORATORY Eosinophils % 2.2 % [facility] Eosinophils Abs 0.2 0.0 - 0.4 [facility] x10(3)/[facility] LABORATORY Basophils % 0.9 % [facility] Basophils Abs 0.1 0.0 - 0.1 [facility] x10(3)/[facility] LABORATORY Immature Gran % 0.70 % [facility] Comment: Immature granulocytes(IG's)percentage an d absolute count will include metamyelocytes, myelocytes, and promyelo cytes. Blood smears from CBCs yielding IG's will be scanned manually for concor dance. If this scan disagrees with the automated IG or if promyelocytes are not ed, a manual differential will be performed. Rain Gran Abs 0.07 (H) 0.00 - 0.04 x10(3)/[facility] LABORATORY Specimen Anatomical Collection Method Collection Time Receive d Time (Source) Location / / Volume Laterality Blood 06/01/2022 5:56 AM 6:05 EDT AM EDT Resulting Agency Comment Spec In Lab Arpita Valle MD HEMATOLOGY ORDERABLES Performing Organization Address City/State/ZIP Code Phon e Number [place] [id number] HOSPITAL LABORATORY Drive (ABNORMAL) Hemogram (06/01/2022 5:56 AM EDT) Analysis Performed At Patho logist Time Signature WBC 9.7 (H) 4.0 - 9.5 [facility] x10(3)/[facility] LABORATORY RBC 2.83 (L) 4.58 - [facility] [place] 5.54 [facility] x10(6)/[facility] LABORATORY Hemoglobin 9.0 (L) 13.7 - [facility] 16.5 g/dL [facility] Hematocrit 26.7 (L) 40.5 - [facility] [place] 48.5 % [facility] MCV 94.3 (H) 82.9 - [facility] 93.1 fL [facility] MCH 31.8 27.5 - [place] 32.1 pg [facility] MCHC 33.7 32.0 - [facility] 35.7 g/dL [facility] Platelets 250 145 - 357 [facility] x10(3)/[facility] LABORATORY RDWSD 54.3 (H) 36.0 - [place] 45.0 [facility] LABORATORY RDWCV 15.9 (H) 11.4 - [place] 13.8 % [facility] MPV 10.5 7.6 - 12.9 [facility] LABORATORY nRBC % Auto 0.0 % [facility] nRBC Abs Auto 0.000 0.000 - [place] 0.000 [facility] x10(3)/[facility] LABORATORY Specimen Anatomical Collection Method Collection Time Receive d Time (Source) Location / / Volume Laterality Blood 06/01/2022 5:56 AM 2 6:05 EDT AM EDT Resulting Agency Comment Spec In Lab Arpita Valle MD HEMATOLOGY ORDERABLES Performing Organization Address City/State/[place] [address] Heparin (unfractionated) Level (06/01/2022 4:30 AM EDT) athologist Signature Heparin UFH 0.68 IU/mL [facility] Comment: Heparin (anti-Xa) levels should be [...] Organization Address City/State/[place] [address] (ABNORMAL) Urinalysis with reflex Culture (06/01/2022 4:00 AM EDT) Patholo gist Method Time Signature Glucose UA [address] [facility] (Critical) mg/dL [facility] Comment: Urinalysis result NOT critical without a combination of Glucose greater than or equal to 500 mg/dL AND Ketones greate r than or equal to 80 mg/dL Protein UA Negative Negative mg/dL [facility] Bilirubin UA Negative Negative mg/dL [facility] Comment: Clinical correlation required for positi ve Urine Bilirubin results as false positive may occur with some drugs and d rug related products. If a false positive is suspected a serum total bili quarles should be considered if clinically indicated. Urobilinogen UA Normal Normal mg/dL [facility] pH UA 6.0 5.0 - 8.0 [facility] Blood UA Negative Negative mg/dL [facility] Ketones UA Negative Negative mg/dL [facility] Nitrite UA Negative Negative [facility] Leukocytes UA Negative Negative [facility] LABORATORY Appearance UA Clear Clear [facility] Spec [place] UA >=1.030 (A) 1.005 - 1.030 [facility] Color UA Yellow Yellow [facility] Culture Reflexed No [facility] Specimen Anatomical Collection Method Collection Time Receive d Time (Source) Location / / Volume Laterality Clean Catch 06/01/2022 4:00 AM 4:26 Urine EDT AM EDT Resulting Agency Comment Spec In Lab Mahendra Victor MD URINE ORDERABLES Performing Organization Address City/State/ZIP Code Phon e Number [address] Magnesium (06/01/2022 1:00 AM EDT) P athologist Signature Magnesium 0.93 0.69 - 1.07 [facility] mmol/L [facility] Specimen Anatomical Collection Method Collection Time Receive d Time (Source) Location / / Volume Laterality Blood 06/01/2022 1:00 AM 2 1:37 EDT AM EDT Resulting Agency Comment Spec In Lab Mahendra Victor MD CHEMISTRY ORDERABLES Performing Organization Address City/State/ZIP Code Phon e Number [facility] [place] [address] (ABNORMAL) Basic Metabolic Panel (non-fasting) (06/01/2022 1:00 AM EDT) P athologist Signature Glucose Lvl 148 65 - 199 [facility] mg/dL [facility] Comment: Diabetes: >=200 mg/dL plus symp toms BUN 23 (H) 10 - 20 mg/dL [facility] Creatinine 0.78 (L) 0.80 - 1.50 mg/dL [facility] Sodium 141 135 - 145 mmol/L [facility] Potassium 4.0 3.5 - 5.0 mmol/L [facility] Comment: Please note: ??Patients with WBC >100,00 0 may have falsely elevated Potassium levels. ??For accurate Potassium quantif ication in these patients send serum separator tube (gold top) for subsequent determinations. ??Contact the Clinical Chemistry Laboratory if there are any qu estions. Chloride 108 (H) 98 - 107 mmol/L [facility] CO2 24 22 - 31 mmol/L [facility] Anion Gap 9 5 - 15 mmol/L [facility] Calcium 8.6 8.5 - 10.5 mg/dL [facility] Estimated GFR 91 >=60 mL/min/1.73 m?? [facility] Comment: This patient's estimated GFR [...] Organization Address City/State/[place] [address] (ABNORMAL) Differential, Automated (06/01/2022 12:00 AM EDT) athologist Signature Neutrophils % 64.6 % [facility] Neutr Abs (ANC) 5.60 1.70 - [facility] 6.10 [facility] x10(3)/[facility] LABORATORY Lymphocytes % 22.4 % [facility] Lymphocytes Abs 1.9 0.9 - 3.2 [facility] x10(3)/[facility] LABORATORY Monocytes % 9.5 % [facility] Monocyte Abs 0.8 0.3 - 0.9 [facility] x10(3)[facility] LABORATORY Eosinophils % 2.1 % [facility] Eosinophils Abs 0.2 0.0 - 0.4 [facility] x10(3)[facility] LABORATORY Basophils % 0.6 % [facility] Basophils Abs 0.0 0.0 - 0.1 [facility] x10(3)/[facility] LABORATORY Immature Gran % 0.80 % [facility] Comment: Immature granulocytes(IG's)percentage an d absolute count will include metamyelocytes, myelocytes, and promyelo cytes. Blood smears from CBCs yielding IG's will be scanned manually for concor dance. If this scan disagrees with the automated IG or if promyelocytes are not ed, a manual differential will be performed. Rain Gran Abs 0.07 (H) 0.00 - 0.04 x10(3)/[facility] LABORATORY Specimen (Source) Anatomical Collection Method Collection Time Re ceived Time Location / / Volume Laterality Blood 06/01/2022 06/01/2022 12:1 0 AM EDT Resulting Agency Comment Spec In Lab Arpita Valle MD HEMATOLOGY ORDERABLES Performing Organization Address City/State/[place] [address] (ABNORMAL) Hemogram (06/01/2022 12:00 AM EDT) Analysis Performed At Patho logist Time Signature WBC 8.7 4.0 - 9.5 [facility](3[facility] LABORATORY RBC 2.77 (L) 4.58 - [place] 5.54 [facility] x10(6)/[facility] LABORATORY Hemoglobin 8.6 (L) 13.7 - [place] 16.5 g/dL [facility] Hematocrit 25.7 (L) 40.5 - [facility] [place] 48.5 % [facility] MCV 92.8 82.9 - [facility] 93.1 [facility] LABORATORY MCH 31.0 27.5 - [place] 32.1 pg [facility] MCHC 33.5 32.0 - [place] 35.7 g/dL [facility] Platelets 260 145 - 357 [facility] x10(3)/[facility] LABORATORY RDWSD 51.9 (H) 36.0 - [facility] [place] 45.0 [facility] LABORATORY RDWCV 15.5 (H) 11.4 - [place] 13.8 % [facility] MPV 10.4 7.6 - 12.9 [facility] nRBC % Auto 0.0 % [facility] nRBC Abs Auto 0.000 0.000 - [place] 0.000 [facility] x10(3)/[facility] LABORATORY Specimen (Source) Anatomical Collection Method Collection Time Re ceived Time Location / / Volume Laterality Blood 06/01/2022 06/01/2022 12:1 0 AM EDT Resulting Agency Comment Spec In Lab Arpita Valle MD HEMATOLOGY ORDERABLES Performing Organization Address City/State/ZIP Code [place] [address] (ABNORMAL) Differential, Automated (05/31/2022 9:17 PM EDT) P athologist Signature Neutrophils % 59.6 % [facility] Neutr Abs (ANC) 3.98 1.70 - [facility] 6.10 [facility] x10(3)/[facility] LABORATORY Lymphocytes % 27.5 % [facility] Lymphocytes Abs 1.8 0.9 - 3.2 [facility] x10(3)/[facility] LABORATORY Monocytes % 9.1 % [facility] Monocyte Abs 0.6 0.3 - 0.9 [facility] x10(3)/[facility] LABORATORY Eosinophils % 2.4 % [facility] Eosinophils Abs 0.2 0.0 - 0.4 [facility] x10(3)/[facility] LABORATORY Basophils % 0.7 % [facility] Basophils Abs 0.0 0.0 - 0.1 [facility] x10(3)/[facility] LABORATORY Immature Gran % 0.70 % [facility] Comment: Immature granulocytes(IG's)percentage an d absolute count will include metamyelocytes, myelocytes, and promyelo cytes. Blood smears from CBCs yielding IG's will be scanned manually for concor dance. If this scan disagrees with the automated IG or if promyelocytes are not ed, a manual differential will be performed. Rain Gran Abs 0.05 (H) 0.00 - 0.04 x10(3)/[facility] LABORATORY Specimen Anatomical Collection Method Collection Time Receive d Time (Source) Location / / Volume Laterality Blood 05/31/2022 9:17 PM 9:25 EDT PM EDT Resulting Agency Comment Spec In Lab Arpita Valle MD HEMATOLOGY ORDERABLES Performing Organization Address City/State/ZIP Code Phon e Number [place] [id number] HOSPITAL LABORATORY Drive (ABNORMAL) Hemogram (05/31/2022 9:17 PM EDT) Analysis Performed At Patho logist Time Signature WBC 6.7 4.0 - 9.5 [facility] x10(3)/[facility] LABORATORY RBC 2.74 (L) 4.58 - [place] 5.54 [facility] x10(6)/[facility] LABORATORY Hemoglobin 8.5 (L) 13.7 - [facility] 16.[facility] g/dL [facility] Hematocrit 25.7 (L) 40.5 - [facility] 48.5 % [facility] MCV 93.8 (H) 82.9 - [facility] 93.1 [facility] LABORATORY MCH 31.0 27.5 - [facility] 32.1 pg [facility] MCHC 33.1 32.0 - [facility] 35.7 g/dL [facility] Platelets 233 145 - 357 [facility] x10(3)/[facility] LABORATORY RDWSD 51.9 (H) 36.0 - [facility] 45.0 [facility] LABORATORY RDWCV 15.3 (H) 11.4 - [facility] 13.8 % [facility] MPV 10.3 7.6 - 12.9 [facility] LABORATORY nRBC % Auto 0.0 % [facility] nRBC Abs Auto 0.000 0.000 - [facility] 0.000 [facility] x10(3)/[facility] LABORATORY Specimen Anatomical Collection Method Collection Time Receive d Time (Source) Location / / Volume Laterality Blood 05/31/2022 9:17 PM 9:25 EDT PM EDT Resulting Agency Comment Spec In Lab Arpita Valle MD HEMATOLOGY ORDERABLES Performing Organization Address City/State/[place] [address] Transfuse RBC (05/31/2022 7:36 PM EDT) Regina Hinds MD NURSING TREATMENT ORDERABLES - BLOOD ADMIN Transfuse RBC (05/31/2022 7:36 PM EDT) Regina Hinds MD NURSING TREATMENT ORDERABLES - BLOOD ADMIN UPPER GI ENDOSCOPY (05/31/2022 3:37 PM EDT) Component Value Ref Test Analysis Performed At Patholo gist Range Method Time Signature UPPER GI [facility] PROVATION ENDOSCOPY Endoscopy Procedure Date: 05/31/2022 3:37 PM ? Patient Name: Koko Zamora ? Date of : 1940 ? Age: 81 ? Order #: [id number] ? Instrument Name: [id number] ? Procedure: ? Upper GI endoscopy Indications: ? Melena, Suspected upper ? gastrointestinal bleeding Providers: ? Giovani Ponce, Torrey Gannon , ? Vani Wei, RN, Juhi Maxwell, ? Torres Ovalle MD: ?Regina [...] Procedure Code(s): ? --- Professional --- ? 46943, Esophagogastroduode noscopy, ? flexible, transoral; with control [...] stomach ? and duodenum CPT copyright 2020 [employer]. All rights reserved. The codes documented in this report are preliminary and upon housing specialist review may be revised to meet current [...] who have questions please contact the health wild animal caretaker that requested your imaging first. ? Electronically signed by: Jl waltre MD, [facility] ([phone]), at 05/31/2022 2:39 PM Narrative 05/31/2022 2:39 [...] enlarged lymph nodes. 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 Electronically signed by: Jl walter MD, [facility] ([phone]), at 05/31/2022 2:39 PM Regina Hinds MD IMG CT ORDERABLES Type and Screen Validity (05/31/2022 1:43 PM EDT) [facility] Method Time Signature T&S only valid [facility] LABORATORY Comment: This Type and Screen result is only valid at the [facility] Specimen Anatomical Collection Method Collection Time Receive d Time (Source) Location / / Volume Laterality Blood 05/31/2022 1:43 PM 2 1:57 EDT PM EDT Resulting Agency Comment Spec In Lab Regina Hinds MD BLOOD BANK ORDERABLES Performing Organization Address City/[facility]/[place] [address] ABORH Recheck Status (05/31/2022 1:43 PM EDT) [facility] Method Time Signature ABORH Type Completed [facility] LABORATORY Specimen Anatomical Collection Method Collection Time Receive d Time (Source) Location / / Volume Laterality Blood 05/31/2022 1:43 PM 2 1:57 EDT PM EDT Resulting Agency Comment Spec In Lab Regina Hinds MD BLOOD BANK ORDERABLES Performing Organization Address City/[facility]/[place] [address] Antibody screen (05/31/2022 1:43 PM EDT) [facility] Method [place] Signature Ab Screen Negative [facility] LABORATORY Expires at 06/03/2022 [facility] [id number] on: [facility] Specimen Anatomical Collection Method Collection Time Receive d Time (Source) Location / / Volume Laterality Blood 05/31/2022 1:43 PM 2 1:57 EDT PM EDT Resulting Agency Comment Spec In Lab Regina Hinds MD BLOOD BANK ORDERABLES Performing Organization Address City/[facility]/[place] [address] ABO/Rh Typing (05/31/2022 1:43 PM EDT) P athologist Signature ABORh Type O Pos [facility] Specimen Anatomical Collection Method Collection Time Receive d Time (Source) Location / / Volume Laterality Blood 05/31/2022 1:43 PM 2 1:57 EDT PM EDT Resulting Agency Comment Spec In Lab Regina Hinds MD BLOOD BANK ORDERABLES Performing Organization Address City/[facility] [place] [place] [address] Prepare RBC (05/31/2022 1:35 PM EDT) P athologist Signature Dispensed? Yes [facility] Specimen Anatomical Collection Method Collection Time Receive d Time (Source) Location / / Volume Laterality Blood 05/31/2022 1:35 PM 2 1:30 EDT PM EDT Regina Hinds MD BLOOD BANK ORDERABLES Performing Organization Address City/[facility]/[place] [address] Prepare RBC (05/31/2022 1:25 PM EDT) P athologist Signature Dispensed? Yes [facility] Specimen Anatomical Collection Method Collection Time Receive d Time (Source) Location / / Volume Laterality Blood 05/31/2022 1:25 PM 2 1:23 EDT PM EDT Regina Hinds MD BLOOD BANK ORDERABLES Performing Organization Address City/[facility] [place] [address] (ABNORMAL) Differential, Automated (05/31/2022 12:44 PM EDT) P athologist Signature Neutrophils % 62.0 % [facility] Neutr Abs (ANC) 4.71 1.70 - [facility] 6.10 [facility] x10(3)/[facility] LABORATORY Lymphocytes % 24.1 % [facility]ORY Lymphocytes Abs 1.8 0.9 - 3.2 [facility] x10(3)/[facility] LABORATORY Monocytes % 10.8 % [facility] Monocyte Abs 0.8 0.3 - 0.9 [facility] x10(3)/[facility] LABORATORY Eosinophils % 1.6 % [facility] Eosinophils Abs 0.1 0.0 - 0.4 [facility] x10(3)/[facility] LABORATORY Basophils % 0.7 % [facility] Basophils Abs 0.0 0.0 - 0.1 [facility] x10(3)/[facility] LABORATORY Immature Gran % 0.80 % [facility] Comment: Immature granulocytes(IG's)percentage an d absolute count will include metamyelocytes, myelocytes, and promyelo cytes. Blood smears from CBCs yielding IG's will be scanned manually for concor dance. If this scan disagrees with the automated IG or if promyelocytes are not ed, a manual differential will be performed. Rain Gran Abs 0.06 (H) 0.00 - 0.04 x10(3)/[facility] LABORATORY Specimen Anatomical Collection Method Collection Time Receive d Time (Source) Location / / Volume Laterality Blood 05/31/2022 12:44 05/31/2022 PM EDT 12:57 PM EDT Resulting Agency Comment Spec In Lab Brittany Ramirez MD HEMATOLOGY ORDERABLES Performing Organization Address City/State/ZIP Code Phon e Number [place] [id number] HOSPITAL LABORATORY Drive (ABNORMAL) Hemogram (05/31/2022 12:44 PM EDT) Analysis Performed At Patho logist Time Signature WBC 7.6 4.0 - 9.5 [facility] x10(3)/[facility] LABORATORY RBC 2.11 (L) 4.58 - [facility] 5.54 [facility] x10(6)/[facility] LABORATORY Hemoglobin 6.9 (L) 13.7 - [facility] g/dL [facility] Hematocrit 20.8 (L) 40.5 - [facility] 48.5 % [facility] MCV 98.6 (H) 82.9 - [facility] 93.1 [facility] LABORATORY MCH 32.7 (H) 27.5 - [facility] 32.1 pg [facility] LAB[facility]ORY MCHC 33.2 32.0 - [facility] 35.7 g/dL [facility] [place] Platelets 255 145 - 357 [facility] x10(3)/[facility] LABORATORY RDWSD 47.7 (H) 36.0 - [facility] 45.0 [facility] RDWCV 13.4 11.4 - [facility] 13.8 % [facility] LABORATORY MPV 10.7 7.6 - 12.9 [facility] LABORATORY nRBC % Auto 0.0 % [facility] nRBC Abs Auto 0.000 0.000 - [facility] 0.000 [facility] x10(3)/[facility] LABORATORY Specimen Anatomical Collection Method Collection Time Receive d Time (Source) Location / / Volume Laterality Blood 05/31/2022 12:44 05/31/2022 PM EDT 12:57 PM EDT Resulting Agency Comment Spec In Lab Brittany Ramirez MD HEMATOLOGY ORDERABLES Performing Organization Address City/State/[place] [address] (ABNORMAL) BLOOD GAS 2 VENOUS (05/31/2022 11:24 AM EDT) P athologist Signature pH Marco Antonio 7.38 7.32 - [facility] 7.42 [facility] LABORATORY pCO2 Marco [place] 40 (L) 41 - 51 [facility] LABORATORY pO2 Marco Atnonio 18 (L) 25 - 40 [facility] LABORATORY HCO3 [place] 23.3 mmol/L [facility] BE Marco Antonio -1.8 mmol/L [facility] Hgb Blood Gas 7.0 (L) 13.7 - [facility] 16.5 g/dL [facility] O2HB [place] 24.3 % [facility] COHB [place] 1.4 % [facility] Comment: Nonsmokers: 0.5-1.5% COHB Smokers: Variable, but usually less than 10% Toxic: 20-30% COHB Lethal: Greater than 60% COHB METHB [place] 1.7 (H) <=1.5 % [facility] LAB[facility] Na Whole Blood 137 135 - 145 mmol/L [facility] K Whole Blood 3.9 3.5 - 5.0 mmol/L [facility] Comment: Please note: Patients with WBC >100,000 may have falsely elevated Potassium levels. Contact the Clinical Chemistry L aboratory if there are any questions. ICa Whole Blood 1.19 1.15 - 1.33 mmol/L [facility] Comment: Note: ??Total bilirubin higher than 20 m g/dL may lead to falsely low ionized calcium. CL Whole Blood 107 98 - 107 mmol/L [facility] LABORATORY Gluc Whole Bld 204 (H) 65 - 199 mg/dL [facility] LABOR[facility]ORY Comment: Diabetes: >=200 mg/dL plus symp toms Lactate WB 1.4 0.5 - 2.2 mmol/L [facility] BGas Source Venous [facility] Specimen Anatomical Collection Method Collection Time Receive d Time (Source) Location / / Volume Laterality Blood 05/31/2022 11:24 05/31/2022 AM EDT 11:24 AM EDT Regina Hinds MD CHEMISTRY ORDERABLES Performing Organization Address City/State/[place] [address] [facility] [place] (05/31/2022 11:20 AM EDT) P athologist Signature TSH 1.67 0.27 - 4.20 [facility] mcIU/mL [facility] Comment: Reference Interval (mcIU/mL): Females: ??First Trimester: 0.23-3.88 ??Second Trimester: 0.22-3.90 ??Third Trimester: 0.44-4.66 Specimen Anatomical Collection Method Collection Time Receive d Time (Source) Location / / Volume Laterality Blood 05/31/2022 11:20 05/31/2022 AM EDT 11:28 AM EDT Resulting Agency Comment Spec In Lab Regina Hinds MD CHEMISTRY ORDERABLES Performing Organization Address City/State/[place] [address] XR Chest PA & [...] who have questions please contact the health wild animal caretaker that requested your imaging first. ? Electronically signed by: Alan strong MD, [facility] ([phone]), at 05/31/2022 11:33 AM Narrative 05/31/2022 11:33 [...] ho have questions please contact the health wild animal caretaker that requested your imaging first. Regina Hinds MD IMG DX ORDERABLES Lipase (05/31/2022 10:50 AM EDT) athologist Signature Lipase 41 0 - 60 [facility]/L [facility] Specimen Anatomical Collection Method Collection Time Receive d Time (Source) Location / / Volume Laterality Blood Venous Draw / 05/31/2022 10:50 05/31/2022 Unknown AM EDT 11:11 AM EDT Resulting Agency Comment Spec In Lab Zain Champion MD CHEMISTRY ORDERABLES Performing Organization Address City/State/[place] [address] (ABNORMAL) Hepatic Function Panel (05/31/2022 10:50 AM EDT) Analysis Performed At Patho logist Time Signature Total Protein 6.4 6.1 - 8.0 [facility] g/dL [facility] Albumin 4.1 3.2 - 5.2 [facility] g/dL [facility] AST 24 0 - 39 [facility] ALT 44 0 - 55 [facility]/L [facility] Alk Phos 63 40 - 130 [facility] Total <0.2 (L) 0.2 - 1.3 [facility] Bilirubin mg/dL [facility] Bili, Direct 0.1 0.0 - 0.3 [facility] mg/dL [facility] Specimen Anatomical Collection Method Collection Time Receive d Time (Source) Location / / Volume Laterality Blood Venous Draw / 05/31/2022 10:50 05/31/2022 Unknown AM EDT 11:11 AM EDT Resulting Agency Comment Spec In Lab Zain Champion MD CHEMISTRY ORDERABLES Performing Organization Address City/[facility]/ZIP Code Phon e Number [address] Blue Tube HOLD (05/31/2022 10:50 AM EDT) P athologist Signature Blue Hold Sample in [facility] lab. [facility] Specimen Anatomical Collection Method Collection Time Receive d Time (Source) Location / / Volume Laterality Blood Venous Draw / 05/31/2022 10:50 05/31/2022 Unknown AM EDT 11:05 AM EDT Brittany Ramirez MD HEMATOLOGY ORDERABLES Performing Organization Address City/[facility]/ZIP Code Phon e Number [address] (ABNORMAL) Differential, Automated (05/31/2022 10:50 AM EDT) P athologist Signature Neutrophils % 66.9 % [facility] Neutr Abs (ANC) 5.58 1.70 - [facility] 6.10 [facility] x10(3)/[facility] LABORATORY Lymphocytes % 22.2 % [facility] Lymphocytes Abs 1.8 0.9 - 3.2 [facility] x10(3)/[facility] LABORATORY Monocytes % 7.8 % [facility] Monocyte Abs 0.6 0.3 - 0.9 [facility] x10(3)/[facility] LABORATORY Eosinophils % 1.2 % [facility] Eosinophils Abs 0.1 0.0 - 0.4 [facility] x10(3)/[facility] LABORATORY Basophils % 0.7 % [facility] Basophils Abs 0.1 0.0 - 0.1 [facility] x10(3)/[facility] LABORATORY Immature Gran % 1.20 % [facility] Comment: Immature granulocytes(IG's)percentage an d absolute count will include metamyelocytes, myelocytes, and promyelo cytes. Blood smears from CBCs yielding IG's will be scanned manually for concor dance. If this scan disagrees with the automated IG or if promyelocytes are not ed, a manual differential will be performed. Rain Gran Abs 0.10 (H) 0.00 - 0.04 x10(3)/[facility] LABORATORY Specimen Anatomical Collection Method Collection Time Receive d Time (Source) Location / / Volume Laterality Blood 05/31/2022 10:50 05/31/2022 AM EDT 11:03 AM EDT Resulting Agency Comment Spec In Lab Brittany Ramirez MD HEMATOLOGY ORDERABLES Performing Organization Address City/State/ZIP Code Phon e Number [place] [phone]OS[address] (ABNORMAL) Hemogram (05/31/2022 10:50 AM EDT) Analysis Performed At Patho logist Time Signature WBC 8.3 4.0 - 9.5 [facility] x10(3)/[facility] LABORATORY RBC 2.26 (L) 4.58 - [facility] 5.54 [facility] x10(6)/[facility] LABORATORY Hemoglobin 7.4 (L) 13.7 - [facility] 16.[facility] g/dL [facility] Hematocrit 22.3 (L) 40.5 - [facility] 48.5 % [facility] MCV 98.7 (H) 82.9 - [facility] 93.1 fL [facility] MCH 32.7 (H) 27.5 - [facility] HAGEN 32.1 pg [facility] MCHC 33.2 32.0 - [facility] 35.7 g/dL [facility] Platelets 283 145 - 357 [facility] x10(3)/[facility] LABORATORY RDWSD 47.0 (H) 36.0 - [facility] HAG[facility] 45.0 [facility] LABORATORY RDWCV 13.4 11.4 - [facility] 13.8 % [facility] MPV 10.8 7.6 - 12.9 [facility] HAGEN [facility] LABORATORY nRBC % Auto 0.0 % [facility] nRBC Abs Auto 0.000 0.000 - [facility] 0.000 [facility] x10(3)/[facility] LABORATORY Specimen Anatomical Collection Method Collection Time Receive d Time (Source) Location / / Volume Laterality Blood 05/31/2022 10:50 05/31/2022 AM EDT 11:03 AM EDT Resulting Agency Comment Spec In Lab Brittany Ramirez MD HEMATOLOGY ORDERABLES Performing Organization Address City/State/ZIP Code Phon e Number [address] Phosphorus (05/31/2022 10:50 AM EDT) P athologist Signature Phosphorus 3.2 2.5 - 4.5 [facility] mg/dL [facility] Specimen Anatomical Collection Method Collection Time Receive d Time (Source) Location / / Volume Laterality Blood 05/31/2022 10:50 05/31/2022 AM EDT 11:03 AM EDT Resulting Agency Comment Spec In Lab Regina Hinds MD CHEMISTRY ORDERABLES Performing Organization Address City/State/ZIP Code Phon e Number [address] Magnesium (05/31/2022 10:50 AM EDT) P athologist Signature Magnesium 0.93 0.69 - 1.07 [facility] mmol/L [facility] Specimen Anatomical Collection Method Collection Time Receive d Time (Source) Location / / Volume Laterality Blood 05/31/2022 10:50 05/31/2022 AM EDT 11:03 AM EDT Resulting Agency Comment Spec In Lab Regina Hinds MD CHEMISTRY ORDERABLES Performing Organization Address City/State/ZIP Code Phon e Number [address] (ABNORMAL) pro-Brain Natriuretic Peptide (05/31/2022 10:50 AM EDT) athologist Signature ProBNP 1,077 (H) <=449 [facility] [employer] pg/mL [facility] Specimen Anatomical Collection Method Collection Time Receive d Time (Source) Location / / Volume Laterality Blood 05/31/2022 10:50 05/31/2022 AM EDT 11:03 AM EDT Resulting Agency Comment Spec In Lab Regina Hinds MD CHEMISTRY ORDERABLES Performing Organization Address City/State/[place] [address] Troponin (05/31/2022 10:50 AM EDT) athologist Signature Troponin-T <0.01 0.00 - 0.00 [facility] ng/mL [facility] Comment: The 99th percentile for Troponin T is le ss than 0.01 ng/mL, any detectable cTnT concentration using this assay should be considered elevated. According to the third universal definit ion of myocardial infarction the following criteria with a clinical prese ntation consistent with acute myocardial ischemia meets the diagnosis for a myocardial infarction (UT). Detection of a rise and/or fall of [...] additional sample may be indicated. Reference: Third [place] Definition of Myocardial Infarction. Journal of the [place] [employer] 2012;60:1581-98 Specimen Anatomical Collection Method Collection Time Receive d Time (Source) Location / / Volume Laterality Blood 05/31/2022 10:50 05/31/2022 AM EDT 11:03 AM EDT Resulting Agency Comment Spec In Lab Regina Hinds MD CHEMISTRY ORDERABLES Performing Organization Address City/State/ZIP Code Phon e Number [place] [phone] (ABNORMAL) Basic Metabolic Panel (non-fasting) (05/31/2022 10:50 AM EDT) athologist Signature Glucose Lvl 223 (H) 65 - 199 [facility] mg/dL [facility] Comment: Diabetes: >=200 mg/dL plus symp toms BUN 39 (H) 10 - 20 mg/dL [facility] Creatinine 0.91 0.80 - 1.50 mg/dL [facility] LABOR[facility] Sodium 140 135 - 145 mmol/L [facility] Potassium 4.1 3.5 - 5.0 mmol/L [facility] Comment: Please note: ??Patients with WBC >100,00 0 may have falsely elevated Potassium levels. ??For accurate Potassium quantif ication in these patients send serum separator tube (gold top) for subsequent determinations. ??Contact the Clinical Chemistry Laboratory if there are any qu estions. Chloride 107 98 - 107 mmol/L [facility] CO2 23 22 - 31 mmol/L [facility] Anion Gap 10 5 - 15 mmol/L [facility] Calcium 9.1 8.5 - 10.5 mg/dL [facility] Estimated GFR 86 >=60 mL/min/1.73 m?? [facility] Comment: This patient's estimated GFR [...] Organization Address City/State/[place] [address] EKG 12 Lead (05/31/2022 10:11 AM EDT) Component Value Ref Range Test Analysis Performed Pathologis t Method Time At Signature Ventricular rate 106 BPM MUSE SYSTEM QRS Duration 122 ms MUSE SYSTEM Q-T Interval 368 ms MUSE SYSTEM QTC Calculated 488 ms MUSE SYSTEM (Bezet) Calculated R [place] -43 degrees MUSE SYSTEM Calculated T [place] 109 degrees MUSE SYSTEM INTERPRETATION Atrial fibrillation with rapid ventricular response MUSE SYSTEM Left axis deviation Minimal voltage criteria for LVH, may be normal variant ( Cummings product ) Cannot rule out Anterior infarct , age undetermined Abnormal ECG When compared with ECG of 20-MAY-2022 19:04, No significant change was found I personally reviewed the tracing and edited the fellows int erpretation Confirmed by fellow MD Mike, [place] ([id number]) on 022 8:36:21 PM Confirmed by MD [...] (Lidoderm) 5% patch 2 patch(Linked Group 1) 3228 (Patch Applied - Provider: Raven Barbour RN [...] (Protonix) injection 40 mg (CANCELED) 160 5 (JAN Hold - Provider: Admin Adt - [...] Normal Ubaldo ine 0.9) flush 5 mL 2119 (Given - Provider: Raven Barbour RN) 08 [...] - Less than 0.1 international unit/mL: Ad hot blaster 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 to med 0-4,000 Units, Intravenous, [facility], Starting on Fri05/31/22 at 2014, Until 06/02/22 at 1702, Per Protocol
START ADJUSTMENT SCHEDULE [...]
Routine documented in this encounter Care Teams Executive Chef Assistant Relationship Specialty Start Date End Date Bobby Das MD PCP - General 10/02/[address] [place] [address] [place] [id number] documented as of this encounter
--- OUTSIDE RECORDS SUMMARY | 2022-07-05 12:34 | XMS_ITS | Encounter Summary ---
:1940 Author Organization [facility] [place] [address] Care Team Providers Name Role Phone Bobby Das MD Primary Care Provider Encounter Details Date Type Department Care Team Description 06/19/2022 Telephone Cardiology at [facility] Jim[facility] [place] [address] Social History Tobacco Use Types Packs/Day [...] Zamora: Requesting a referral to Cardiac Rehab [facility] Forward to Dr Reid documented in this encounter Plan of Treatment Upcoming Encounters Date Type Specialty Care Team Description 08/08/2022 Office Visit Gastroenterology Negra Collins MD [facility] GASTROENTEROLOGY DEPT [place], [place] [address] (Wo rk) 09/05/2022 Appointment Cardiology Trinity Reid MD [facility] CARDIOLOGY [place], [place] [address] (Wo rk) 09/05/2022 Office Visit Cardiology Trinity Reid MD [facility] CARDIOLOGY [place], [place] [address] (Wo rk) documented as of this encounter Visit Diagnoses Not on filedocumented in this encounter Care Teams Normalizer Relationship Specialty Start Date End Date Bobby Das MD PCP - General 10/02/[address] [place] [address] [place] [phone] documented as of this encounter
--- OUTSIDE RECORDS SUMMARY | 2022-07-05 12:35 | XMS_ITS | Encounter Summary ---
:1940 Author Organization [facility] [place] [address] Care Team Providers Name Role Phone Bobby Das MD Primary Care Provider Reason for Visit Reason Comments Dizziness Auth/Cert Specialty Diagnoses / Procedures Referred By Contact Refer red To Contact Diagnoses GIB (gastrointestinal bleeding) [facility] [place] [address] Referral ID Status Reason Start Date Expiration Date Visits Requ ested Visits Authorized [id number] 1 1 Encounter Details Date Type Department Care Team Description 05/31/2022 Surgery Gastroenterology at [facility] Giovani Ponce, EGD, UPPER GI [facility] [place] [address] [facility] [phone] [place] [address] Social History Tobacco [...] switching to a different bloodthinner with the field crops harvest machine operator outpatient. Call your doctor or seek [...] switchingto a different blood thinner with your field crops harvest machine operator as an outpatient Stopped Medications - Aspirin - Valsartan - Speak with your field crops harvest machine operator about the timing of restarting this Follow-up Appointments Future Appointments Date Time Provider Department Center 06/10/2022 11:00 AM Loretta Cohen MD [facility] 06/13/2022 7:30 AM Edson [place] [facility] VAS LAB [facility] 06/13/2022 8:00 AM Fito Summers MD [facility] V SURG [facility] 06/13/2022 10:00 AM Alan Reid MD [facility] CARD [address] [place] [address] Your Inpatient Medical Team at [facility] Name(s) of your inpatient provider(s): Dr. John Ames For questions regarding issues relating to your hospitalization on the Hospital Medicine Service, please contact your inpatient physician through the [facility] Civil Engineering Professional [phone]. Issues after hours and on weekends will be handled by the Hospitalist staff on-call. Your Primary Care Provider Bobby Das MD [phone] Future Appointments and Orders Future Appointments and Orders Future Appointments Provider Department Dept Phone 06/10/2022 11:00 AM Loretta Cohen MD Dermatology at [facility] Arrive at: Tourist Home Keeper [address] [place] [phone] 06/13/2022 7:30 AM Edson [place]os [place] Vascular Lab at [facility] Arrive at: Tourist Home Keeper Area 06/13/2022 8:00 AM Fito Summers MD Vascular Surgery at [facility] Arrive at: Tourist Home Keeper Area 06/13/2022 10:00 AM Alan Reid MD Cardiology at [facility] Arrive at: Tourist Home Keeper Area 4A [phone] For questions regarding this document or issues relating to this hospitalization on the Medical Service, please contact your inpatient physician through the [facility] Civil Engineering Professional . Issues after hours and on weekends [...] switching to a different bloodthinner with the field crops harvest machine operator outpatient. Call your doctor or seek [...] switchingto a different blood thinner with your field crops harvest machine operator as an outpatient Stopped Medications - Aspirin - Valsartan - Speak with your field crops harvest machine operator about the timing of restarting this Follow-up Appointments Future Appointments Date Time Provider Department Center 06/10/2022 11:00 AM Loretta Cohen MD [facility] 06/13/2022 7:30 AM Edson [place] [facility] VAS LAB ILDA POWELL 06/13/2022 8:00 AM Fito Summers MD [facility] V SURG [facility] 06/13/2022 10:00 AM Alan Reid MD [facility] CARD 4A [facility] Your Inpatient Medical Team at [facility] Name(s) of your inpatient provider(s): Dr. John Ames For questions regarding issues relating to your hospitalization on the Hospital Medicine Service, please contact your inpatient physician through the [facility] Civil Engineering Professional [phone]. Issues after hours and on weekends will be handled by the Hospitalist staff on-call. Your Primary Care Provider Bobby Das MD [phone] documented in this encounter Medications at Time [...] 04/12/20 21 (FLONASE) 50 mcg/actuation Nare route [place], Suspension daily as needed. fluorouraciL (EFUDEX) 5 [...] spent >30 minutes (Day of Discharge Code 33607) involved in the final examination of the [...] from the original note were not included. [facility] Medicine Progress Note [place] Team - Pager #[phone] Admit Date: 05/31/2022 Name: Koko Zamora : [...] Kurt Ames MD Internal Medicine, PGY-1 Medicine [place] Team #[id number] Associated attestation - John Jolley MD - [...] from the original note were not included. [facility] Medicine (#[id number]) History and Physical Patient info: Name: Koko Zamora : 1940 PCP: Bobby Das MD PCP phone number: [phone] Date of Admission: 05/31/2022 ( Hospital Day [...] IR Biopsy Spine 07/20/2019 Bobby Marshall MD [facility] INTERVENTIONL RAD ??? IR VERTEBROPLASTY LUMBAR MULTIPLE LEVELS 07/20/2019 IR Vertebroplasty Lumbar Multiple Levels 07/20/2019 Bobby Marshall MD [facility] INTERVENTIONL RAD ??? IR VERTEBROPLASTY THORACIC SINGLE LEVEL 10/25/2020 IR Vertebroplasty Thoracic Single Level 10/25/2020 Matt Chisholm MD [facility] INTERVENTIONL RAD ??? PRO EMBLC/THRMBC FEMORAL POPLITEAL AORTO-ILIAC ARTERY Left 05/15/2022 EMBOLECTOMY OR THROMBECTOMY, FEMOROPOPLITEAL, AORTOILIAC ARTERY BY LEG INCISION (WRVU 19.48) performed by Fito Summers MD at [facility] MAIN OR No family history on [...] 11 ??? fluticasone propionate (FLONASE) 50 mcg/actuation [place], Suspension as needed. ??? fluorouraciL (EFUDEX) 5 [...] Gas) No results found for: PHART, PO2ART, CZC3VUM, MJY4HSP Microbiology: N/A Pertinent radiology/diagnostic studies: Recent prior [...] Status: Full Arpita Valle MD, PGY-3 05/31/2022 [facility] Medicine # [id number] Attending Staff Admission [...] 05/31/2022 3:58 PM EDT [facility]. Upon arrival to pt's [...] 10:50 AM EDT Pt brought to by leather grader Brittany Ramirez MD - 05/31/2022 10:40 [...] who have questions please contact the health landcare facilitator that requested your imaging first. Electronically signed by: Jl Zuluaga MD, [facility] ([phone]), at 05/31/2022 2:39 PM XR Chest PA [...] who have questions please contact the health landcare facilitator that requested your imaging first. 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 Patient reported blurry/hazy [...] were not included. [facility] [place] [address] INPATIENT CARDIOLOGY CONSULT NOTE Date of Consultation: 06/01/2022 Admit Date: 05/31/2022 Place of Service: IS86/IS86-A Referring Attending: REGINA HINDS COLEMAN W FRIEDMAN, HARLEY P Responsible Appliquer: Dr. Rizo Hospital Day 1 day Reason for Consult: Antiplatelet/anticoagulation s/p pci and afib, with GI bleed HPI: Koko Zamora is a 81 y.o. male with a cardiac history significant for remote mitral valve repair (2000), pre-DM, HLD, significant alcohol use, tobacco use, Afib on xarelto, ischemic systolic heartfailure (recent [facility] 05/20/2022 with 2V disease OM1 and distal RCA, had ostial LCX and LCx stent) who presented to [facility] on 05/31/2022 for GI bleed. Patient presented [...] IR Biopsy Spine 07/20/2019 Bobby Marshall MD [facility] INTERVENTIONL RAD ??? IR VERTEBROPLASTY LUMBAR MULTIPLE LEVELS 07/20/2019 IR Vertebroplasty Lumbar Multiple Levels 07/20/2019 Bobby Marshall MD [facility] INTERVENTIONL RAD ??? IR VERTEBROPLASTY THORACIC SINGLE LEVEL 10/25/2020 IR Vertebroplasty Thoracic Single Level 10/25/2020 Matt Chisholm MD [facility] INTERVENTIONL RAD ??? PRO EMBLC/THRMBC FEMORAL POPLITEAL AORTO-ILIAC ARTERY Left 05/15/2022 EMBOLECTOMY OR THROMBECTOMY, FEMOROPOPLITEAL, AORTOILIAC ARTERY BY LEG INCISION (WRVU 19.48) performed by Fito Summers MD at [facility] MAIN OR ALLERGIES: Allergies Allergen Reactions [...] time ??? fluticasone propionate (FLONASE) 50 mcg/actuation [place], Suspension 1 spray by Each Nare route [...] from 05/31/2022 in Intermediate Special Care Unit [facility] ED to Hosp-Admission (Discharged) from 05/15/2022 in Intermediate Cardiac Care Unit [facility] Weight 77.1 kg (170 lb) 1 [...] 3.5 guiding catheter and a 3.[address] [facility] [address] 20 Mhz. Imaging was successful. Image [...] A premounted 2.75 x 30 mm Rudy [place] (AMPARO) was deployed with a maximum inflation [...] may require modification of this regimen. Consult [facility] Interventional Cardiology for questions. The 1 year [...] Hb drop. Unknown source. has had a [facility] with stent placed and revascularization of [...] who have questions please contact the health landcare facilitator that requested your imaging first. Electronically signed by: Jl Zuluaga MD, [facility] ([phone]), at 05/31/2022 2:39 PM [place] 48 Hrs-15 [...] who have questions please contact the health landcare facilitator that requested your imaging first. Electronically signed by: Alan Brink MD, [facility] ([phone]), at 05/31/2022 11:33 AM LABS Recent Labs [...] on xarelto, ischemic systolic heart failure (recent [facility] 05/20/2022 with 2V disease OM1 and distal RCA, had ostial LCX and LCx stent), recent admission for acutelimb ischemia LLE, where he had left common femoral transverse arteriotomy and primary repair, thromboembolectomy of the SFA, profunda and common femoral artery with 4 compartment fasciotomies, who presented to [facility] on 05/31/2022 for GI bleed. Cardiology consulted [...] attestation for additional insight. Rossy Anaya MD [facility] Flake Drier, PGY-5 Inpatient Cardiology Consults Pager #[phone] Please check Qgenda for on-call cardiology consults [...] A&Ox 4. On room air. VSS. 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 Adequate urine output, urinal at bedside, flomax [...] 180 days) Any patient receiving care in [place] must abide by [place] law. The hierarchy [...] walker - rolling Home Address confirmed as: [address] [place] [id number] Social & Family Supports: All names listed below confirmed with patient as current and correct Extended Emergency Contact Information Primary Emergency Contact: Ursula Zamora Address: [address] [place] [id number] [facility] Relation: Spouse Current Care Provided by: [...] Type: *No Product type* / Secondary Insurance: [facility] Secondary Insurance? (Only Medicare A&B): Yes ; Prescription Coverage: Yes Preferred Pharmacy: [facility] [place], [place] - [address] [place] [address] [place] [id number] [place] Status: Patient is a : No Primary Care Provider: Bobby Das MD [phone] Patient/Caregiver Goals of Treatment: Patient plans to [...] with transition of care planning. ASH [place] Financial Cost Analyst [facility] Medicine/ Medical Specialties Pager- [phone] Plan [...] Operative Note Patient Name: Koko Zamora : [id number] MR#: [id number] Case Date: 05/31/2022 Surgeon: Surgeon(s) and Role: [...] stomach. He has had colonoscopies before in [place] - notes first ever he had 6 [...] IR Biopsy Spine 07/20/2019 Bobby Marshall MD [facility] INTERVENTIONL RAD ??? IR VERTEBROPLASTY LUMBAR MULTIPLE LEVELS 07/20/2019 IR Vertebroplasty Lumbar Multiple Levels 07/20/2019 Bobby Marshall MD [facility] INTERVENTIONL RAD ??? IR VERTEBROPLASTY THORACIC SINGLE LEVEL 10/25/2020 IR Vertebroplasty Thoracic Single Level 10/25/2020 Matt Chisholm MD [facility] INTERVENTIONL RAD ??? PRO EMBLC/THRMBC FEMORAL POPLITEAL AORTO-ILIAC ARTERY Left 05/15/2022 EMBOLECTOMY OR THROMBECTOMY, FEMOROPOPLITEAL, AORTOILIAC ARTERY BY LEG INCISION (WRVU 19.48) performed by Fito Summers MD at [facility] MAIN OR SOCIAL HX: Social History [...] sounds, tympanic to percussion RECTAL: performed with demurrage agent present, no overt masses, fissures, external hemorrhoids, [...] who have questions please contact the health landcare facilitator that requested your imaging first. Electronically signed by: Alan Brink MD, [facility] ([phone]), at 05/31/2022 11:[address] Abdomen & [...] MD [facility] GASTROENTEROLOGY DEPT [place], [place] [address] (Wo rk) 09/05/2022 Appointment Cardiology Trinity Reid MD [facility] CARDIOLOGY [place], [place] [address] (Wo rk) 09/05/2022 Office Visit Cardiology Trinity Reid MD [facility] CARDIOLOGY [place], [place] 0[address] (Wo rk) documented as of [...] P athologist Signature Neutrophils % 61.3 % [facility] LABOR[facility] Neutr Abs (ANC) 4.44 1.70 - [facility] 6.10 [facility] x10(3)/[facility] LABORATORY Lymphocytes % 25.2 % [facility] Lymphocytes Abs 1.8 0.9 - 3.2 [facility] x10(3)/[facility] LABORATORY Monocytes % 10.0 % [facility] Monocyte Abs 0.7 0.3 - 0.9 [facility] x10(3)/[facility] LABORATORY Eosinophils % 2.1 % [facility] Eosinophils Abs 0.2 0.0 - 0.4 [facility] x10(3)/[facility] LABORATORY Basophils % 0.7 % [facility] Basophils Abs 0.0 0.0 - 0.1 [facility] x10(3)/[facility] LABORATORY Immature Gran % 0.70 % [facility] Comment: Immature granulocytes(IG's)percentage an d absolute count will include metamyelocytes, myelocytes, and promyelo cytes. Blood smears from CBCs yielding IG's will be scanned manually for concor dance. If this scan disagrees with the automated IG or if promyelocytes are not ed, a manual differential will be performed. Rain Gran Abs 0.05 (H) 0.00 - 0.04 x10(3)/[facility] LABORATORY Specimen Anatomical Collection Method Collection Time Receive d Time (Source) Location / / Volume Laterality Blood 06/02/2022 8:20 AM 8:25 EDT AM EDT Resulting Agency Comment Spec In Lab Kurt Ames MD HEMATOLOGY ORDERABLES Performing Organization Address City/State/Z[place] [address] (ABNORMAL) Hemogram (06/02/2022 8:20 AM EDT) Analysis Performed At Patho logist Time Signature WBC 7.2 4.0 - 9.5 [facility] x10(3)/[facility] LABORATORY RBC 2.74 (L) 4.58 - [facility] 5.54 [facility] x10(6)/[facility] LABORATORY Hemoglobin 8.7 (L) 13.7 - [place] 16.5 g/dL [facility] Hematocrit 25.7 (L) 40.5 - [place] 48.5 % [facility] MCV 93.8 (H) 82.9 - [place] [address] [facility] LABORATORY MCH 31.8 27.5 - [place] 32.1 pg [facility] MCHC 33.9 32.0 - [place] 35.7 g/dL [facility] Platelets 260 145 - 357 [facility] x10(3)/[facility] LABORATORY RDWSD 51.0 (H) 36.0 - [place] 45.0 [facility] LABORATORY RDWCV 14.9 (H) 11.4 - [facility] XIAO 13.8 % [facility] MPV 10.0 7.6 - 12.9 [facility] LABORATORY nRBC % Auto 0.0 % [facility] nRBC Abs Auto 0.000 0.000 - [facility] [place] 0.000 [facility] x10(3)/[facility] LABORATORY Specimen Anatomical Collection Method Collection Time Receive d Time (Source) Location / / Volume Laterality Blood 06/02/2022 8:20 AM 8:25 EDT AM EDT Resulting Agency Comment Spec In Lab Kurt Ames MD HEMATOLOGY ORDERABLES Performing Organization Address City/State/[place] [address] Heparin (unfractionated) Level (06/02/2022 6:30 AM EDT) P athologist Signature Heparin UFH 0.39 IU/mL [facility] LABORATORY Comment: Heparin (anti-Xa) levels [...] Victor MD HEMATOLOGY ORDERABLES Performing Organization Address City/[facility]/ZIP Code Phon e Number [address] Heparin (unfractionated) Level (06/02/2022 12:30 AM EDT) athologist Signature Heparin UFH 0.81 IU/mL [facility] LABORATORY Comment: Heparin (anti-Xa) levels [...] Victor MD HEMATOLOGY ORDERABLES Performing Organization Address City/[facility]/ZIP [place] [address] Magnesium (06/02/2022 12:30 AM EDT) P athologist Signature Magnesium 0.83 0.69 - 1.07 [facility] mmol/L [facility] Specimen Anatomical Collection Method Collection Time Receive d Time (Source) Location / / Volume Laterality Blood 06/02/2022 12:30 06/02/2022 AM EDT 12:40 AM EDT Resulting Agency Comment Spec In Lab Mahendra Victor MD CHEMISTRY ORDERABLES Performing Organization Address City/State/ZIP [place] [address] (ABNORMAL) Basic Metabolic Panel (non-fasting) (06/02/2022 12:30 AM EDT) P athologist Signature Glucose Lvl 151 65 - 199 [facility] mg/dL [facility] Comment: Diabetes: >=200 mg/dL plus symp toms BUN 12 10 - 20 mg/dL [facility] LABOR[facility]ORY Creatinine 0.71 (L) 0.80 - [...] Chloride 108 (H) 98 - 107 mmol/L [facility] CO2 24 22 - 31 mmol/L [facility] Anion Gap 10 5 - 15 mmol/L [facility] Calcium 8.1 (L) 8.5 - 10.5 mg/dL [facility] LABORATORY Estimated GFR 93 >=60 mL/min/1.73 m?? [facility] Comment: This patient's estimated GFR [...] Organization Address City/State/[place] [address] (ABNORMAL) Differential, Automated (06/01/2022 7:29 PM EDT) athologist Signature Neutrophils % 68.8 % [facility] Neutr Abs (ANC) 5.34 1.70 - [facility] 6.10 [facility] x10(3)/[facility] LABORATORY Lymphocytes % 19.6 % [facility] Lymphocytes Abs 1.5 0.9 - 3.2 [facility] x10(3)/[facility] LABORATORY Monocytes % 8.1 % [facility] Monocyte Abs 0.6 0.3 - 0.9 [facility] x10(3)/[facility] LABORATORY Eosinophils % 1.8 % [facility] Eosinophils Abs 0.1 0.0 - 0.4 [facility] x10(3)/[facility] LABORATORY Basophils % 0.8 % [facility] Basophils Abs 0.1 0.0 - 0.1 [facility] x10(3)/[facility] LABORATORY Immature Gran % 0.90 % [facility] Comment: Immature granulocytes(IG's)percentage an d absolute count will include metamyelocytes, myelocytes, and promyelo cytes. Blood smears from CBCs yielding IG's will be scanned manually for concor dance. If this scan disagrees with the automated IG or if promyelocytes are not ed, a manual differential will be performed. Rain Gran Abs 0.07 (H) 0.00 - 0.04 x10(3)/[facility] LABORATORY Specimen Anatomical Collection Method Collection Time Receive d Time (Source) Location / / Volume Laterality Blood 06/01/2022 7:29 PM 2 7:29 EDT PM EDT Resulting Agency Comment Spec In Lab Kurt Ames MD HEMATOLOGY ORDERABLES Performing Organization Address City/State/ZIP [place] [address] (ABNORMAL) Hemogram (06/01/2022 7:29 PM EDT) Analysis Performed At Patho logist Time Signature WBC 7.8 4.0 - 9.5 [facility] x10(3)/[facility] LABORATORY RBC 2.65 (L) 4.58 - [facility] [place] 5.54 [facility] x10(6)/[facility] LABORATORY Hemoglobin 8.3 (L) 13.7 - [facility] 16.[facility] g/dL [facility] Hematocrit 24.8 (L) 40.5 - [facility] 48.5 % [facility] MCV 93.6 (H) 82.9 - [facility] [address] [facility] LABORATORY MCH 31.3 27.5 - [place] 32.1 pg [facility] MCHC 33.5 32.0 - [place] 35.7 g/dL [facility] Platelets 263 145 - 357 [facility] x10(3)/[facility] LABORATORY RDWSD 52.8 (H) 36.0 - [facility] XIA[address] 45.[address] [facility] LABORATORY RDWCV 15.4 (H) 11.4 - [facility] [place] 13.8 % [facility] MPV 10.4 7.6 - 12.9 [facility] nRBC % Auto 0.0 % [facility] nRBC Abs Auto 0.000 0.000 - [facility] XIAO 0.000 [facility] x10(3)/[facility] LABORATORY Specimen Anatomical Collection Method Collection Time Receive d Time (Source) Location / / Volume Laterality Blood 06/01/2022 7:29 PM 2 7:29 EDT PM EDT Resulting Agency Comment Spec In Lab Kurt Ames MD HEMATOLOGY ORDERABLES Performing Organization Address City/State/ZIP Code Phon e Number [address] Heparin (unfractionated) Level (06/01/2022 7:29 PM EDT) P athologist Signature Heparin UFH 0.81 IU/mL [facility] LABORATORY Comment: Heparin (anti-Xa) levels [...] Address City/State/ZIP Code Phon e Number [address] (ABNORMAL) Heparin (unfractionated) Level (06/01/2022 11:32 AM EDT) Patholo gist Method Time Signature Heparin UFH 1.05 IU/mL [facility] (Critical) [facility] Comment: Critical Result called by ?? [...] Organization Address City/State/ZIP [place] [address] (ABNORMAL) Differential, Automated (06/01/2022 5:56 AM EDT) [facility] Method Time Signature Neutrophils % 62.7 % [facility] Neutr Abs (ANC) 6.11 (H) 1.70 - [facility] 6.10 [facility] x10(3)/[facility] LABORATORY Lymphocytes % 23.5 % [facility] Lymphocytes Abs 2.3 0.9 - 3.2 [facility] x10(3)/[facility] LABORATORY Monocytes % 10.0 % [facility] Monocyte Abs 1.0 (H) 0.3 - 0.9 [facility] x10(3)/[facility] LABORATORY Eosinophils % 2.2 % [facility] Eosinophils Abs 0.2 0.0 - 0.4 [facility] x10(3)/[facility] LABORATORY Basophils % 0.9 % [facility] Basophils Abs 0.1 0.0 - 0.1 [facility] x10(3)/[facility] LABORATORY Immature Gran % 0.70 % [facility] Comment: Immature granulocytes(IG's)percentage an d absolute count will include metamyelocytes, myelocytes, and promyelo cytes. Blood smears from CBCs yielding IG's will be scanned manually for concor dance. If this scan disagrees with the automated IG or if promyelocytes are not ed, a manual differential will be performed. Rain Gran Abs 0.07 (H) 0.00 - 0.04 x10(3)/[facility] LABORATORY Specimen Anatomical Collection Method Collection Time Receive d Time (Source) Location / / Volume Laterality Blood 06/01/2022 5:56 AM 2 6:05 EDT AM EDT Resulting Agency Comment Spec In Lab Arpita Valle MD HEMATOLOGY ORDERABLES Performing Organization Address City/State/ZIP [place] [address] (ABNORMAL) Hemogram (06/01/2022 5:56 AM EDT) Analysis Performed At Patho logist Time Signature WBC 9.7 (H) 4.0 - 9.5 [facility] x10(3)/[facility] LABORATORY RBC 2.83 (L) 4.58 - [facility]54 [facility] x10(6)/[facility] LABORATORY Hemoglobin 9.0 (L) 13.7 - [facility] 16.5 g/dL [facility] Hematocrit 26.7 (L) 40.5 - [facility] 48.5 % [facility] MCV 94.3 (H) 82.9 - [facility] 93.1 [facility] LABORATORY MCH 31.8 27.5 - [facility] 32.1 pg [facility] MCHC 33.7 32.0 - [facility] 35.7 g/dL [facility] Platelets 250 145 - 357 [facility] x10(3)/[facility] LABORATORY RDWSD 54.3 (H) 36.0 - [facility] XIAO 45.0 [facility] LABORATORY RDWCV 15.9 (H) 11.4 - [facility] XIA[facility] 13.8 % [facility] MPV 10.5 7.6 - 12.9 [facility] LABORATORY nRBC % Auto 0.0 % [facility] LABORATORY nRBC Abs Auto 0.000 0.000 - [facility] XIAO 0.000 [facility] x10(3)/[facility] LABORATORY Specimen Anatomical Collection Method Collection Time Receive d Time (Source) Location / / Volume Laterality Blood 06/01/2022 5:56 AM 2 6:05 EDT AM EDT Resulting Agency Comment Spec In Lab Arpita Valle MD HEMATOLOGY ORDERABLES Performing Organization Address City/State/ZIP [place] [address] Heparin (unfractionated) Level (06/01/2022 4:30 AM EDT) P athologist Signature Heparin UFH 0.68 IU/mL [facility] LABORATORY Comment: Heparin (anti-Xa) levels [...] Victor MD HEMATOLOGY ORDERABLES Performing Organization Address City/[facility]/ZIP [place] [address] (ABNORMAL) Urinalysis with reflex Culture (06/01/2022 4:00 AM EDT) Patholo gist Method Time Signature Glucose UA 500 Negative [facility] (Critical) mg/dL [facility] Comment: Urinalysis result NOT critical without a combination of Glucose greater than or equal to 500 mg/dL AND Ketones greate r than or equal to 80 mg/dL Protein UA Negative Negative mg/dL [facility] LABOR[facility]ORY Bilirubin UA Negative Negative mg/dL [facility] LABORATORY Comment: Clinical correlation required for positi ve Urine Bilirubin results as false positive may occur with some drugs and d rug related products. If a false positive is suspected a serum total bili quarles should be considered if clinically indicated. Urobilinogen UA Normal Normal mg/dL [facility] LABORATORY pH UA 6.0 5.0 - 8.0 [facility] LABORATORY Blood UA Negative Negative mg/dL [facility] LAB[facility]ORY Ketones UA Negative Negative mg/dL [facility] LABOR[facility]ORY Nitrite UA Negative Negative [facility] LABORATORY Leukocytes UA Negative Negative [facility] LABORATORY Appearance UA Clear Clear [facility] LABORATORY Spec [place] UA >=1.030 (A) 1.005 - 1.030 [facility] LABORATORY Color UA Yellow Yellow [facility] LABORATORY Culture Reflexed No [facility] LABORATORY Specimen Anatomical Collection Method Collection Time Receive d Time (Source) Location / / Volume Laterality Clean Catch 06/01/2022 4:00 AM 2 4:26 Urine EDT AM EDT Resulting Agency Comment Spec In Lab Mahendra Victor MD URINE ORDERABLES Performing Organization Address City/[facility]/ZIP Code Phon e Number [address] Magnesium (06/01/2022 1:00 AM EDT) athologist Signature Magnesium 0.93 0.69 - 1.07 [facility] mmol/L [facility]OR[facility] Specimen Anatomical Collection Method Collection Time Receive d Time (Source) Location / / Volume Laterality Blood 06/01/2022 1:00 AM 2 1:37 EDT AM EDT Resulting Agency Comment Spec In Lab Mahendra Victor MD CHEMISTRY ORDERABLES Performing Organization Address City/[facility] Phon e Number [address] (ABNORMAL) Basic Metabolic Panel (non-fasting) (06/01/2022 1:00 AM EDT) athologist Signature Glucose Lvl 148 65 - 199 [facility] mg/dL [facility] Comment: Diabetes: >=200 mg/dL plus symp toms BUN 23 (H) 10 - 20 mg/dL [facility] LABOR[facility]ORY Creatinine 0.78 (L) 0.80 - 1.50 mg/dL [facility] [...] Chloride 108 (H) 98 - 107 mmol/L [facility] CO2 24 22 - 31 mmol/L [facility] Anion Gap 9 5 - 15 mmol/L [facility]OR[facility] Calcium 8.6 8.5 - 10.5 mg/dL [facility] LABORATORY Estimated GFR 91 >=60 mL/min/1.73 m?? [facility] Comment: This patient's estimated GFR [...] Organization Address City/State/Z[place] [address] (ABNORMAL) Differential, Automated (06/01/2022 12:00 AM EDT) P athologist Signature Neutrophils % 64.6 % [facility] LABOR[facility]ORY Neutr Abs (ANC) 5.60 1.70 - [facility] 6.10 [facility] x10(3)/[facility] LABORATORY Lymphocytes % 22.4 % [facility] LABORATORY Lymphocytes Abs 1.9 0.9 - 3.2 [facility] x10(3)/[facility] LABORATORY Monocytes % 9.5 % [facility] LABORATORY Monocyte Abs 0.8 0.3 - 0.9 [facility] x10(3)/[facility] LABORATORY Eosinophils % 2.1 % [facility]OR[facility]ORY Eosinophils Abs 0.2 0.0 - 0.4 [facility] x10(3)/[facility] LABORATORY Basophils % 0.6 % [facility]OR[facility]ORY Basophils Abs 0.0 0.0 - 0.1 [facility] x10(3)/[facility] LABORATORY Immature Gran % 0.80 % [facility] LABORATORY Comment: Immature granulocytes(IG's)percentage an d absolute count will include metamyelocytes, myelocytes, and promyelo cytes. Blood smears from CBCs yielding IG's will be scanned manually for concor dance. If this scan disagrees with the automated IG or if promyelocytes are not ed, a manual differential will be performed. Rain Gran Abs 0.07 (H) 0.00 - 0.04 x10(3)/[facility] LABORATORY Specimen (Source) Anatomical Collection Method Collection Time Re ceived Time Location / / Volume Laterality Blood 06/01/2022 06/01/2022 12:1 0 AM EDT Resulting Agency Comment Spec In Lab Arpita Valle MD HEMATOLOGY ORDERABLES Performing Organization Address City/State/ZIP [place] [address] (ABNORMAL) Hemogram (06/01/2022 12:00 AM EDT) Analysis Performed At Patho logist Time Signature WBC 8.7 4.0 - 9.5 [facility] x10(3)/[facility] LABORATORY RBC 2.77 (L) 4.58 - [facility] 5.54 [facility] x10(6)/[facility] LABORATORY Hemoglobin 8.6 (L) 13.7 - [facility] 16.5 g/dL [facility] Hematocrit 25.7 (L) 40.5 - [facility] 48.5 % [facility] MCV 92.8 82.9 - [facility] 93.1 [facility] LABORATORY MCH 31.0 27.5 - [facility] 32.1 pg [facility] MCHC 33.5 32.0 - [facility] 35.7 g/dL [facility] Platelets 260 145 - 357 [facility] x10(3)/[facility] LABORATORY RDWSD 51.9 (H) 36.0 - [facility] 45.0 [facility] LABORATORY RDWCV 15.5 (H) 11.4 - [facility] 13.8 % [facility] MPV 10.4 7.6 - 12.9 [facility] [place] LABORATORY nRBC % Auto 0.0 % [facility] LABORATORY nRBC Abs Auto 0.000 0.000 - [facility] 0.000 [facility] x10(3)/[facility] LABORATORY Specimen (Source) Anatomical Collection Method Collection Time Re ceived Time Location / / Volume Laterality Blood 06/01/2022 06/01/2022 12:1 0 AM EDT Resulting Agency Comment Spec In Lab Arpita Valle MD HEMATOLOGY ORDERABLES Performing Organization Address City/State/ZIP [place] [address] (ABNORMAL) Differential, Automated (05/31/2022 9:17 PM EDT) P athologist Signature Neutrophils % 59.6 % [facility]OR[facility]ORY Neutr Abs (ANC) 3.98 1.70 - [facility] 6.10 [facility] x10(3)/[facility] LABORATORY Lymphocytes % 27.5 % [facility]ORATORY Lymphocytes Abs 1.8 0.9 - 3.2 [facility] x10(3)/[facility] LABORATORY Monocytes % 9.1 % [facility]OR[facility]ORY Monocyte Abs 0.6 0.3 - 0.9 [facility] x10(3)/[facility] LABORATORY Eosinophils % 2.4 % [facility] Eosinophils Abs 0.2 0.0 - 0.4 [facility] x10(3)/[facility] LABORATORY Basophils % 0.7 % [facility] Basophils Abs 0.0 0.0 - 0.1 [facility] x10(3)/[facility] LABORATORY Immature Gran % 0.70 % [facility]OR[facility]ORY Comment: Immature granulocytes(IG's)percentage an d absolute count will include metamyelocytes, myelocytes, and promyelo cytes. Blood smears from CBCs yielding IG's will be scanned manually for concor dance. If this scan disagrees with the automated IG or if promyelocytes are not ed, a manual differential will be performed. Rain Gran Abs 0.05 (H) 0.00 - 0.04 x10(3)/[facility] LABORATORY Specimen Anatomical Collection Method Collection Time Receive d Time (Source) Location / / Volume Laterality Blood 05/31/2022 9:17 PM 9:25 EDT PM EDT Resulting Agency Comment Spec In Lab Arpita Valle MD HEMATOLOGY ORDERABLES Performing Organization Address City/State/ZIP [place] [address] (ABNORMAL) Hemogram (05/31/2022 9:17 PM EDT) Analysis Performed At Patho logist Time Signature WBC 6.7 4.0 - 9.5 [facility] x10(3)/[facility] LABORATORY RBC 2.74 (L) 4.58 - [facility] 5.54 [facility] x10(6)/[facility] LABORATORY Hemoglobin 8.5 (L) 13.7 - [facility] g/dL [facility] Hematocrit 25.7 (L) 40.5 - [facility] 48.5 % [facility] MCV 93.8 (H) 82.9 - [facility] 93.1 fL [facility] MCH 31.0 27.5 - [facility] 32.1 pg [facility] MCHC 33.1 32.0 - [facility] 35.7 g/dL [facility] Platelets 233 145 - 357 [facility] x10(3)/[facility] LABORATORY RDWSD 51.9 (H) 36.0 - [facility] 45.0 [facility] RDWCV 15.3 (H) 11.4 - [facility] XIAO 13.8 % [facility] MPV 10.3 7.6 - 12.9 [facility] LABORATORY nRBC % Auto 0.0 % [facility] nRBC Abs Auto 0.000 0.000 - [facility] 0.000 [facility] x10(3)/[facility] LABORATORY Specimen Anatomical Collection Method Collection Time Receive d Time (Source) Location / / Volume Laterality Blood 05/31/2022 9:17 PM 9:25 EDT PM EDT Resulting Agency Comment Spec In Lab Arpita Valle MD HEMATOLOGY ORDERABLES Performing Organization Address City/State/Z[place] [address] Transfuse RBC (05/31/2022 7:36 PM EDT) Regina Hinds MD NURSING TREATMENT ORDERABLES - BLOOD ADMIN Transfuse RBC (05/31/2022 7:36 PM EDT) Regina Hinds MD NURSING TREATMENT ORDERABLES - BLOOD ADMIN UPPER GI ENDOSCOPY (05/31/2022 3:37 PM EDT) Component Value Ref Test Analysis Performed At [facility] Range Method Time Signature UPPER GI [facility] PROVATION ENDOSCOPY Endoscopy Procedure Date: 05/31/2022 3:37 PM ? Patient Name: Koko Zamora ? Date of : 1940 ? Age: 81 ? Order #: [id number] ? Instrument Name: [id number] ? Procedure: ? Upper GI endoscopy Indications: ? Melena, Suspected upper ? gastrointestinal bleeding Providers: ? Torrey Munoz , ? Vani Wei, DION, Juhi Maxwell, ? Torres Ovalle MD: ?Regina Go. Guzman Medicines: ? Propofol per Anesthesia Complications: ? [...] Procedure Code(s): ? --- Professional --- ? 15567, Esophagogastroduode noscopy, ? flexible, transoral; with control [...] stomach ? and duodenum CPT copyright 2021 [employer]. All rights reserved. The codes documented in this report are preliminary and upon base filler review may be revised to meet [...] who have questions please contact the health landcare facilitator that requested your imaging first. ? Electronically signed by: Jl walter MD, [facility] ([phone]), at 05/31/2022 2:39 PM Narrative 05/31/2022 2:39 PM EDT EXAMINATION: CT ABDOMEN AND PELVIS WWO CONTRAST (GI BLEED) CLINICAL HISTORY: Significant Hb drop. U nknown source. has had a [facility] with stent placed and revascularization of [...] enlarged lymph nodes. Vasculature: Patent common iliac, dope pourer al iliac, and common femoral arteries bilaterally. [...] original. EXAMINATION: CT ABDOMEN AND PELVIS [facility] ONTRAST (GI BLEED) CLINICAL HISTORY: Significant [...] enlarged lymph nodes. Vasculature: Patent common iliac, dope pourer al iliac, and common femoral arteries bilaterally. [...] ho have questions please contact the health landcare facilitator that requested your imaging first. Regina Hinds MD G CT ORDERABLES Type and Screen Validity (05/31/2022 1:43 PM EDT) [facility] gist Method Time Signature T&S only valid [facility] at [facility] Comment: This Type and Screen result is only valid at the [facility] Hospital Specimen Anatomical Collection Method Collection Time Receive d Time (Source) Location / / Volume Laterality Blood 05/31/2022 1:43 PM 2 1:57 EDT PM EDT Resulting Agency Comment Spec In Lab Regina Hinds MD BLOOD BANK ORDERABLES Performing Organization Address City/State/Z[place] [address] ABORH Recheck Status (05/31/2022 1:43 PM EDT) [facility] Method Time Signature ABORH Type Completed [facility] LABORATORY Specimen Anatomical Collection Method Collection Time Receive d Time (Source) Location / / Volume Laterality Blood 05/31/2022 1:43 PM 2 1:57 EDT PM EDT Resulting Agency Comment Spec In Lab Regina Hinds MD BLOOD BANK ORDERABLES Performing Organization Address City/[facility]/ZIP [place] [address] Antibody screen (05/31/2022 1:43 PM EDT) [facility] Signature Ab Screen Negative [facility] LABORATORY Expires at 06/03/2022 [facility] [id number] on: [facility] Specimen Anatomical Collection Method Collection Time Receive d Time (Source) Location / / Volume Laterality Blood 05/31/2022 1:43 PM 2 1:57 EDT PM EDT Resulting Agency Comment Spec In Lab Regina Hinds MD BLOOD BANK ORDERABLES Performing Organization Address City/[facility]/ZIP [place] [address] ABO/Rh Typing (05/31/2022 1:43 PM EDT) P athologist Signature ABORh Type O Pos [facility] LABORATORY Specimen Anatomical Collection Method Collection Time Receive d Time (Source) Location / / Volume Laterality Blood 05/31/2022 1:43 PM 2 1:57 EDT PM EDT Resulting Agency Comment Spec In Lab Regina Hinds MD BLOOD BANK ORDERABLES Performing Organization Address City/[facility]/ZIP [place] [address] Prepare RBC (05/31/2022 1:35 PM EDT) P athologist Signature Dispensed? Yes [facility] LABORATORY Specimen Anatomical Collection Method Collection Time Receive d Time (Source) Location / / Volume Laterality Blood 05/31/2022 1:35 PM 2 1:30 EDT PM EDT Regina Hinds MD BLOOD BANK ORDERABLES Performing Organization Address City/[facility] [place] [address] Prepare RBC (05/31/2022 1:25 PM EDT) P athologist Signature Dispensed? Yes [facility]ORATORY Specimen Anatomical Collection Method Collection Time Receive d Time (Source) Location / / Volume Laterality Blood 05/31/2022 1:25 PM 2 1:23 EDT PM EDT Regina Hinds MD BLOOD BANK ORDERABLES Performing Organization Address [facility] Phon e Number [address] (ABNORMAL) Differential, Automated (05/31/2022 12:44 PM EDT) P athologist Signature Neutrophils % 62.0 % [facility] Neutr Abs (ANC) 4.71 1.70 - [facility] 6.10 [facility] x10(3)/[facility] LABORATORY Lymphocytes % 24.1 % [facility] Lymphocytes Abs 1.8 0.9 - 3.2 [facility] x10(3)/[facility] LABORATORY Monocytes % 10.8 % [facility]ORATORY Monocyte Abs 0.8 0.3 - 0.9 [facility] x10(3)/[facility] LABORATORY Eosinophils % 1.6 % [facility] Eosinophils Abs 0.1 0.0 - 0.4 [facility] x10(3)/[facility] LABORATORY Basophils % 0.7 % [facility] Basophils Abs 0.0 0.0 - 0.1 [facility] x10(3)/[facility] LABORATORY Immature Gran % 0.80 % [facility] Comment: Immature granulocytes(IG's)percentage an d absolute count will include metamyelocytes, myelocytes, and promyelo cytes. Blood smears from CBCs yielding IG's will be scanned manually for concor dance. If this scan disagrees with the automated IG or if promyelocytes are not ed, a manual differential will be performed. Rain Gran Abs 0.06 (H) 0.00 - 0.04 x10(3)/[facility] LABORATORY Specimen Anatomical Collection Method Collection Time Receive d Time (Source) Location / / Volume Laterality Blood 05/31/2022 12:44 05/31/2022 PM EDT 12:57 PM EDT Resulting Agency Comment Spec In Lab Brittany Ramirez MD HEMATOLOGY ORDERABLES Performing Organization Address City/State/ZIP [place] [address] (ABNORMAL) Hemogram (05/31/2022 12:44 PM EDT) Analysis Performed At Patho logist Time Signature WBC 7.6 4.0 - 9.5 [facility] x10(3)/[facility] LABORATORY RBC 2.11 (L) 4.58 - [facility]IAO 5.54 [facility] x10(6)/[facility] LABORATORY Hemoglobin 6.9 (L) 13.7 - [facility] g/dL [facility] Hematocrit 20.8 (L) 40.5 - [facility] XIAO 48.5 % [facility] MCV 98.6 (H) 82.9 - [facility] 93.1 [facility] LABORATORY MCH 32.7 (H) 27.5 - [facility] 32.1 pg [facility] MCHC 33.2 32.0 - [facility] 35.7 g/dL [facility] Platelets 255 145 - 357 [facility] x10(3)/[facility] LABORATORY RDWSD 47.7 (H) 36.0 - [facility] XIA[address] 45.[address] [facility] LABORATORY RDWCV 13.4 11.4 - [facility] 13.8 % [facility] MPV 10.7 7.6 - 12.9 [facility] [place] LABORATORY nRBC % Auto 0.0 % [facility] LABORATORY nRBC Abs Auto 0.000 0.000 - [facility] 0.000 [facility] x10(3)/[facility] LABORATORY Specimen Anatomical Collection Method Collection Time Receive d Time (Source) Location / / Volume Laterality Blood 05/31/2022 12:44 05/31/2022 PM EDT 12:57 PM EDT Resulting Agency Comment Spec In Lab Brittany Ramirez MD HEMATOLOGY ORDERABLES Performing Organization Address City/State/ZIP [place] [address] (ABNORMAL) BLOOD GAS 2 VENOUS (05/31/2022 11:24 AM EDT) P athologist Signature pH [place] 7.38 7.32 - [facility] 7.42 [facility] pCO2 [place] 40 (L) 41 - 51 [facility] LABORATORY pO2 [place] 18 (L) 25 - 40 [facility] LABORATORY HCO3 [place] 23.3 mmol/L [facility] BE Marco Antonio -1.8 mmol/L [facility] Hgb Blood Gas 7.0 (L) 13.7 - [facility] 16.5 g/dL [facility] O2HB [place] 24.3 % [facility] COHB Marco Antonio 1.4 % [facility] Comment: Nonsmokers: 0.5-1.5% COHB Smokers: Variable, but usually less than 10% Toxic: 20-30% COHB Lethal: Greater than 60% COHB METHB [place] 1.7 (H) <=1.5 % [facility] LABORATORY Na Whole Blood 137 135 - 145 mmol/L [facility] K Whole Blood 3.9 3.5 - 5.0 mmol/L [facility] Comment: Please note: Patients with WBC >100,000 may have falsely elevated Potassium levels. Contact the Clinical Chemistry L aboratory if there are any questions. ICa Whole Blood 1.19 1.15 - 1.33 mmol/L [facility] Comment: Note: ??Total bilirubin higher than 20 m g/dL may lead to falsely low ionized calcium. CL Whole Blood 107 98 - 107 mmol/L [facility] Gluc Whole Bld 204 (H) 65 - 199 mg/dL [facility] LABOR[facility] Comment: Diabetes: >=200 mg/dL plus symp toms Lactate WB 1.4 0.5 - 2.2 mmol/L [facility] LABORATORY BGas Source Venous [facility] LABORATORY Specimen Anatomical Collection Method Collection Time Receive d Time (Source) Location / / Volume Laterality Blood 05/31/2022 11:24 05/31/2022 AM EDT 11:24 AM EDT Regina Hinds MD CHEMISTRY ORDERABLES Performing Organization Address City/[facility]/ZIP Code Phon e Number [address] TSH [place] (05/31/2022 11:20 AM EDT) P athologist Signature TSH 1.67 0.27 - 4.20 [facility] mcIU/mL [facility] Comment: Reference Interval (mcIU/mL): Females: ??First Trimester: 0.23-3.88 ??Second Trimester: 0.22-3.90 ??Third Trimester: 0.44-4.66 Specimen Anatomical Collection Method Collection Time Receive d Time (Source) Location / / Volume Laterality Blood 05/31/2022 11:20 05/31/2022 AM EDT 11:28 AM EDT Resulting Agency Comment Spec In Lab Regina Hinds MD CHEMISTRY ORDERABLES Performing Organization Address City/[facility]/ZIP Code Phon e Number [address] XR Chest PA & [...] who have questions please contact the health landcare facilitator that requested your imaging first. ? Electronically signed by: Alan strong MD, [facility] ([phone]), at 05/31/2022 11:33 AM Narrative 05/31/2022 11:33 [...] ho have questions please contact the health landcare facilitator that requested your imaging first. Electronically signed by: Alan strong MD, [facility] ([phone]), at 05/31/2022 11:33 AM Regina Hinds MD IMG DX ORDERABLES Lipase (05/31/2022 10:50 AM EDT) athologist Signature Lipase 41 0 - 60 [facility] unit/L [facility] Specimen Anatomical Collection Method Collection Time Receive d Time (Source) Location / / Volume Laterality Blood Venous Draw / 05/31/2022 10:50 05/31/2022 Unknown AM EDT 11:11 AM EDT Resulting Agency Comment Spec In Lab Zain Champion MD CHEMISTRY ORDERABLES Performing Organization Address City/State/ZIP Code Phon e Number [place] [phone] (ABNORMAL) Hepatic Function Panel (05/31/2022 10:50 AM EDT) Analysis Performed At Patho logist Time Signature Total Protein 6.4 6.1 - 8.0 [place] g/dL [facility] Albumin 4.1 3.2 - 5.2 [place] g/dL [facility] AST 24 0 - 39 [place] unit/L [facility] ALT 44 0 - 55 [place] unit/L [facility] Alk Phos 63 40 - 130 [place] unit/L [facility] Total <0.2 (L) 0.2 - 1.3 [place] Bilirubin mg/dL [facility] Bili, Direct 0.1 0.0 - 0.3 [place] mg/dL [facility] Specimen Anatomical Collection Method Collection Time Receive d Time (Source) Location / / Volume Laterality Blood Venous Draw / 05/31/2022 10:50 05/31/2022 Unknown AM EDT 11:11 AM EDT Resulting Agency Comment Spec In Lab Zain Champion MD CHEMISTRY ORDERABLES Performing Organization Address City/[facility]/ZIP Code Phon e Number [address] Blue Tube HOLD (05/31/2022 10:50 AM EDT) athologist Signature Blue Hold Sample in [facility] LABORATORY Specimen Anatomical Collection Method Collection Time Receive d Time (Source) Location / / Volume Laterality Blood Venous Draw / 05/31/2022 10:50 05/31/2022 Unknown AM EDT 11:05 AM EDT Brittany Ramirez MD HEMATOLOGY ORDERABLES Performing Organization Address City/[facility]/ZIP Code Phon e Number [address] (ABNORMAL) Differential, Automated (05/31/2022 10:50 AM EDT) athologist Signature Neutrophils % 66.9 % [facility] Neutr Abs (ANC) 5.58 1.70 - [facility] 6.10 [facility] x10(3)/[facility] LABORATORY Lymphocytes % 22.2 % [facility] Lymphocytes Abs 1.8 0.9 - 3.2 [facility] x10(3)/[facility] LABORATORY Monocytes % 7.8 % [facility] Monocyte Abs 0.6 0.3 - 0.9 [facility] x10(3)/[facility] LABORATORY Eosinophils % 1.2 % [facility] Eosinophils Abs 0.1 0.0 - 0.4 [facility] x10(3)/[facility] LABORATORY Basophils % 0.7 % [facility] Basophils Abs 0.1 0.0 - 0.1 [facility] x10(3)/[facility] LABORATORY Immature Gran % 1.20 % [facility] Comment: Immature granulocytes(IG's)percentage an d absolute count will include metamyelocytes, myelocytes, and promyelo cytes. Blood smears from CBCs yielding IG's will be scanned manually for tracy armstrong. If this scan disagrees with the automated IG or if promyelocytes are not ed, a manual differential will be performed. Rain Gran Abs 0.10 (H) 0.00 - 0.04 x10(3)/[facility] LABORATORY Specimen Anatomical Collection Method Collection Time Receive d Time (Source) Location / / Volume Laterality Blood 05/31/2022 10:50 05/31/2022 AM EDT 11:03 AM EDT Resulting Agency Comment Spec In Lab Brittany Ramirez MD HEMATOLOGY ORDERABLES Performing Organization Address City/State/ZIP [place] [address] (ABNORMAL) Hemogram (05/31/2022 10:50 AM EDT) Analysis Performed At Patho logist Time Signature WBC 8.3 4.0 - 9.5 [facility] x10(3)/[facility] LABORATORY RBC 2.26 (L) 4.58 - [facility] x10(6)/[facility] LABORATORY Hemoglobin 7.4 (L) 13.7 - [facility] 16.5 g/dL [facility] Hematocrit 22.3 (L) 40.5 - [facility] 48.5 % [facility] MCV 98.7 (H) 82.9 - [facility] [address] [facility] LABORATORY MCH 32.7 (H) 27.5 - [facility] XIAO 32.1 pg [facility] MCHC 33.2 32.0 - [facility] XIAO 35.7 g/dL [facility] Platelets 283 145 - 357 [facility] x10(3)/[facility] LABORATORY RDWSD 47.0 (H) 36.0 - [facility] XIAO 45.0 [facility] LABORATORY RDWCV 13.4 11.4 - [facility] XIAO 13.8 % [facility] MPV 10.8 7.6 - 12.9 [facility] LABORATORY nRBC % Auto 0.0 % [facility] nRBC Abs Auto 0.000 0.000 - [place] [facility] 0.000 [facility] x10(3)/[facility] LABORATORY Specimen Anatomical Collection Method Collection Time Receive d Time (Source) Location / / Volume Laterality Blood 05/31/2022 10:50 05/31/2022 AM EDT 11:03 AM EDT Resulting Agency Comment Spec In Lab Brittany Ramirez MD HEMATOLOGY ORDERABLES Performing Organization Address City/State/ZIP Code Phon e Number [address] Phosphorus (05/31/2022 10:50 AM EDT) P athologist Signature Phosphorus 3.2 2.5 - 4.5 [place] mg/dL [facility] Specimen Anatomical Collection Method Collection Time Receive d Time (Source) Location / / Volume Laterality Blood 05/31/2022 10:50 05/31/2022 AM EDT 11:03 AM EDT Resulting Agency Comment Spec In Lab Regina Hinds MD CHEMISTRY ORDERABLES Performing Organization Address City/State/ZIP Code Phon e Number [address] Magnesium (05/31/2022 10:50 AM EDT) P athologist Signature Magnesium 0.93 0.69 - 1.07 [place] mmol/L [facility] Specimen Anatomical Collection Method Collection Time Receive d Time (Source) Location / / Volume Laterality Blood 05/31/2022 10:50 05/31/2022 AM EDT 11:03 AM EDT Resulting Agency Comment Spec In Lab Regina Hinds MD CHEMISTRY ORDERABLES Performing Organization Address City/State/ZIP [place] [address] (ABNORMAL) pro-Brain Natriuretic Peptide (05/31/2022 10:50 AM EDT) P athologist Signature ProBNP 1,077 (H) <=449 [place] pg/mL [facility] Specimen Anatomical Collection Method Collection Time Receive d Time (Source) Location / / Volume Laterality Blood 05/31/2022 10:50 05/31/2022 AM EDT 11:03 AM EDT Resulting Agency Comment Spec In Lab Regina Hinds MD CHEMISTRY ORDERABLES Performing Organization Address City/[facility]/ZIP [place] [address] Troponin (05/31/2022 10:50 AM EDT) athologist Signature Troponin-T <0.01 0.00 - 0.00 [facility] ng/mL [facility] Comment: The 99th percentile for Troponin T is le ss than 0.01 ng/mL, any detectable cTnT concentration using this assay should be considered elevated. According to the third universal definit ion of myocardial infarction the following criteria with a clinical prese ntation consistent with acute myocardial ischemia meets the diagnosis for a myocardial infarction (OR). Detection of a rise and/or fall of [...] additional sample may be indicated. Reference: Third [place] Definition of Myocardial Infarction. Journal of the [place] [employer] 2012;60:1581-98 Specimen Anatomical Collection Method Collection Time Receive d Time (Source) Location / / Volume Laterality Blood 05/31/2022 10:50 05/31/2022 AM EDT 11:03 AM EDT Resulting Agency Comment Spec In Lab Regina Hinds MD CHEMISTRY ORDERABLES Performing Organization Address City/[facility]/ZIP [place] [address] (ABNORMAL) Basic Metabolic Panel (non-fasting) (05/31/2022 10:50 AM EDT) athologist Signature Glucose Lvl 223 (H) 65 - 199 [facility] mg/dL [facility] Comment: Diabetes: >=200 mg/dL plus symp toms BUN 39 (H) 10 - 20 mg/dL [facility] Creatinine 0.91 0.80 - 1.50 mg/dL [facility] Sodium 140 135 - 145 [...] estions. Chloride 107 98 - 107 mmol/L [facility] CO2 23 22 - 31 mmol/L [facility] Anion Gap 10 5 - 15 mmol/L [facility] Calcium 9.1 8.5 - 10.5 mg/dL [facility] Estimated GFR 86 >=60 mL/min/1.73 m?? [facility] Comment: This patient's estimated GFR [...] Organization Address City/State/ZIP [place] [address] EKG 12 Lead (05/31/2022 10:11 AM EDT) Component Value Ref Range Test Analysis Performed Pathologis t Method Time At Signature Ventricular rate 106 BPM MUSE SYSTEM QRS Duration 122 ms MUSE SYSTEM Q-T Interval 368 ms MUSE SYSTEM QTC Calculated 488 ms MUSE SYSTEM (Bezet) Calculated R Law[place] -43 degrees MUSE SYSTEM Calculated T Lawai 109 degrees MUSE SYSTEM INTERPRETATION Atrial fibrillation [...] erpretation Confirmed by fellow MD Mike, [place] ([id number]) on 022 8:36:21 PM Confirmed by MD [...] Oral, DAILY, First dose on Fri05/31/22 at 2015, Until Discontinued, Routine Given 06/01/2022 8:12 AM [...] PROTOCOL, Starting on Fri05/31/22 at 2013, Until [place] 06/02/22 at 1702, Per Pro tocol, START [...] CONTINUOUS, Starting on Fri05/31/22 at 2015, Until [place] 06/02/22 at 1702, Begin infusion at 950 [...] 75 mg 2108 (Given - Provider: Esthela Barbuor RN) 08 (Given - Provider: Trinidad Saenz RN) 08 [...] (Lidoderm) 5% patch 2 patch(Linked Group 1) 3764 (Patch Applied - Provider: Raven Barbour RN [...] 40 mg 210 (Given - Provider: Raven Barbour, DION) 0812 (Given - Provider: Trinidad Saenz RN) 0811 (Given - Provider: Trinidad Saenz RN) 40 mg, Oral, DAILY, First dose on Fri at 2016, Until Discontinued, Routine sodium chloride 0.9 % (flush) (BD PosiFlush Normal Ubaldo ine 0.9) flush 5 mL 2118 (Given - Provider: Raven Barbour RN) 0813 (Given - Provider: Trinidad Saenz RN)204 (Given - Provider: Raven Barbour, DION) 0814 [...] RN)0710 (New Bag - Provider: Raven Barbour RN)8643 (Stopped - Provider: Maranda Ribeiro RN) 0-5,000 [...] - Less than 0.1 international unit/mL: Ad form setter supervisor 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
Routine documented in this encounter Care Teams Control Engineer Relationship Specialty Start Date End Date Bobby Das MD PCP - General 10/02/[address] [place] [address] [place] [id number] documented as of this encounter
--- OUTSIDE RECORDS SUMMARY | 2022-07-05 12:35 | XMS_ITS | Encounter Summary ---
:1940 Author Organization [facility] [place] [address] Care Team Providers Name Role Phone Bobby Das MD Primary Care Provider Reason for Referral Consultation (Routine) - Authorized Specialty Diagnoses / Procedures Referred By Contact Refer red To Contact Diagnoses Non-ST elevation myocardial infarction (NSTEMI) Limb ischemia Nasrin Parra PA [facility] Tobacco Treatment [facility] [place] [address] [place] [address] Referral ID Status Reason Start Date Expiration Visits Visits Date Requested Authorized [id number] Authorized Consult, 05/21/2022 05/21/2023 1 1 Test & Treat iagnostic Test (Routine) - Closed Specialty Diagnoses / Procedures Referred By Contact Refer red To Contact Cardiology Diagnoses Paroxysmal atrial fibrillation Nasrin Parra PA [facility] Non-Inv Card Lab Procedures Ziopatch 48 Hrs-15 Days [facility] [place] [address] [place] [address] Fax: Referral ID Status Reason Start Date Expiration Date Visits V isits Requested Authorized [id number] Closed Specialty 05/21/2022 10/21/2022 1 1 Service Requested Consultation (Routine) - Closed Specialty Diagnoses / Procedures Referred By Contact Refer red To Contact Cardiology Diagnoses HFrEF (heart failure with reduced ejection fraction) Paroxysmal atrial fibrillation Post-hospital follow-up, s/p PCI with stenting, heart failure Nasrin Parra PA [facility] Cardiology 4a [facility] D R [facility] [place] [address] [place] [address] Referral ID Status Reason Start Date Expiration Date Visits V isits Requested Authorized [id number] Closed Consult, 05/21/2022 05/21/2023 1 1 Test & Treat iagnostic Test (Routine) - Authorized Specialty Diagnoses / Procedures Referred By Contact Refer red To Contact Diagnoses Limb ischemia Nasrin Parra PA [facility] Vascular Lab 3v Procedures JOSSELYN, legs, multiple levels [facility] [place] [address] [place] [address] Referral ID Status Reason Start Expiration Visits Visits Date Date Requested Authorized [id number] Authorized Specialty 05/21/2022 05/21/2023 1 1 Service Requested [facility] (Routine) - Authorized Specialty Diagnoses / Procedures Referred By Contact Refer red To Contact Diagnoses Limb ischemia Fito Summers MD Home Health & Hospice, [facility] VASCULAR SURGERY [address] [place] [address] [address] Fax: Referral ID Status Reason Start Date Expiration Visits Visits Date Requested Authorized [id number] Authorized Consult, 05/21/2022 11/17/2022 999 999 Test & Treat Reason for Visit Reason Comments Left Leg Pain Auth/Cert Specialty Diagnoses / Procedures Referred By Contact Refer red To Contact Diagnoses Limb ischemia LLE thrombus Fito Summers MD [facility] D [place] [address] Referral ID Status Reason Start Date Expiration Date Visits Requ ested Visits Authorized [id number] 1 1 Encounter Details Date Type Department Care Team Description 05/15/2022 - Hospital Intermediate Cardiac Ravi Summers MD [facility] [place] [address] Atrial fibrillation, unspecified type; 05/21/2022 Encounter Care Unit Wellington Gerard MD [facility] [place] [address] Non-ST elevation myocardial infarction ( NSTEMI); [facility] Limb isch emia; [facility] HFrEF (heart failure with re duced ejection fraction); [facility] [place]ys[place] [address] Social History Tobacco Use Types Packs/Day Years [...] Afib who presents in transfer from [facility] with acute limb ischemia of [...] emergently went to the OR for L DIABETOLOGIST transverse arteriotomy and primary repair, thromboembolectomy of L SFA/PFA/DIABETOLOGIST, reperfusion venous drainage for 250 cc, and [...] Discharge Condition: Good Discharge to: Home with [address] [address] Future Appointments and Orders Future Appointments and Orders Future Appointments Provider Department Dept Phone 05/23/2022 10:30 AM Loretta Cohen MD Dermatology at [facility] Arrive at: [facility] [place] [address] [place] [address] 06/07/2022 1:30 PM Gail Rae APRN Vascular Surgery at [facility] Arrive at: [place] Area [phone] 06/13/2022 7:30 AM Edson Lagos [place] Vascular Lab at [facility] Arrive at: [place] Area [phone] 06/13/2022 8:00 AM Fito Summers MD Vascular Surgery at [facility] Arrive at: [place] Area [phone] 06/13/2022 10:00 AM Alan Reid MD Cardiology at [facility] Arrive at: [place] Area [phone] Future Orders Complete By Expires Demetriusopatch 48 Hrs-15 Days [ACE7699 CPT(R)] 05/21/2022 11/20/2022 Process Instructions: Scheduling Instructions: Comments: Questions: Does the patient have a pacemaker? If yes provide HI/LO settings: Apply for 7 or 14 days?: 7 Where will study be performed?: [facility] Clinics JOSSELYN, legs, multiple levels [VAS8 Custom] 06/21/2022 (Approximate) 12/21/2022 Process Instructions: There is no in-house vascular ammunition assembly i laborer available on weeknights (5pm-8am), weekends, or holidays. IF THIS IS A REQUEST FOR AN EMERGENT STUDY DURING THOSE HOURS, please have the senior provider responsible for the patient page the Vascular Surgery Fellow/Senior Resident neighborhood conservation officer to discuss options. Scheduling Instructions: Questions: Indication for study/signs & symptoms: ALI s/p L fem cutdown with thromboembolectomy Question to be answered: Perfusion to feet? Please check toe pressure Preferred location?: [facility] Clinics Referral to Cardiology [REF12 Custom] As [...] Zamora for admission to Home Health. [address] [facility] [address] (home) Date of : 1940 Inpatient DOCUMENTATION FOR VNA SERVICES (INCLUDING THOSE PATIENTS WITH MEDICARE COVERAGE REQUIRING HOME VNA SERVICES AND/OR HOSPICE SERVICES) PATIENT'S LOCATION: Koko Zamora [address] [facility] [phone] (home) Cell: No relevant phone numbers on file. Stereoptician's Name: Koko In discussion with the attending physician, it is certified that this patient is under their care and that they, or a Nurse Practitioner,Clinical Nurse specialist or Physician Maintenance Advisor who is working directly with them, had [...] for managing ADL's. HOME HEALTH CARE AGENCY: [facility] [address] [place] [id number] Start of care: Within 24 to 48 [...] obtained from this patient'sPCP: Bobby Das MD [address] [place] [phone] All A agencies which cover the [...] For any problems or questions please call [phone] For issues on weeknights after 5pm and weekends please call [phone] and ask for the Vascular Fellow neighborhood conservation officer. JOSEE Santiago Vascular Surgery 05/21/2022 documented in [...] For any problems or questions please call [phone] For issues on weeknights after 5pm and weekends please call [phone] and ask for the Vascular Fellow neighborhood conservation officer. documented in this encounter Medications at Time [...] 04/12/20 21 (FLONASE) 50 mcg/actuation Nare route Wool[place], Suspension daily as needed. fluorouraciL (EFUDEX) 5 [...] Afib who presents in transfer from [facility] with acute limb ischemia of [...] status, full code. JOSEE Santiago 05/21/2022 Pager: [phone] Brannon Isaacs, PT - 05/21/2022 10:35 AM [...] plan as stated. Time IN / OUT: 9808-3095 Total Minutes, Physical Therapy: 25 Billing Code: 2 BOSTON Isaacs DPT Pager: [phone] Physical Therapy Inpatient Rehabilitation Department Wellington Jean [...] from 05/15/2022 in Intermediate Cardiac Care Unit [facility] Office Visit from 04/17/2021 in Pain and Spine Center at [facility] Weight 79.8 kg (175 lb 14.8 oz) [...] and plan of care per Dr. Mcnamara (sr risk management consultant). 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 His [...] 04/17/2021 in Pain and Spine Center at [facility] Weight 79.8 kg (175 lb 14.8 oz) [...] findings andplan of care per Dr. Mcnamara (sr risk management consultant). Please refer to her note above for [...] a mitral repair in 2000 (not at [facility]) with no CAD at that time. Currently, [...] AF and the first documented HR at [facility] was 125 bpm (presented to an an [...] Afib who presents in transfer from [facility] with acute limb ischemia of [...] management following Dottie Hill APRN 05/20/2022 Pager: [phone] Laney Atkins RN - 05/20/2022 1:14 AM EDT Pt Koko transferred to room from [facility]. A&Ox4, oriented to room and call boo. Masimo and telemetry placed. In agreement with assessment as documented this evening by Nuris ASHLEY. No complaints at this time. Pt aware of NPO status and plan for cardiac cath in AM. Urinal provided. Resting comfortably in bed. Nuris Lester RN - 05/20/2022 1:09 AM EDT Pt. Transferred to [facility]. RN accompanied patient to floor and handed off to [facility] RN oDttie Hill APRN - 05/19/2022 10:02 AM EDT Vascular Surgery Progress Note Koko Zamora is a 81 y.o. male with w new onset Afib who presents in transfer from [facility] with acute limb ischemia of the LLE. ?? The patient had sudden pain starting at 630 05/15/22, he presented [facility] where he was placed on heparin. [...] management following Dottie Hill APRN 05/19/2022 Pager: [phone] Emily Greer RN - 05/19/2022 6:28 AM EDT OUTCOME EVALUATION NOTE: OUTCOME SUMMARY: Patient AOx4, VSS on RA. Afib on tele. HR controlled w/ PRN metop, given x2. Denies CP, SOB, n/v. See flowsheets for NVC. Dressings to LLE CDI, prevena WV to groin intact. Voiding to urinal. LBM GUARDIAN FAMILY MEMBER, patient stating he will maybe try the [...] adequately without difficulty to bedside urinal. LBM GUARDIAN FAMILY MEMBER. Up to chair this AM with nursing staff. Worked with PT, tolerated well. Diet changed to regular at 1800.Plan is for cardiac cath on Friday. PLAN MOVING FORWARD: Bleeding precautions Pain management neurovascular checks PT/OT labor operator INDIVIDUALIZED FALL PREVENTION INTERVENTIONS: Patient-specific fall risk [...] Afib who presents in transfer from [facility] with acute limb ischemia of [...] mL Intravenous BID ??? PHENobarbitaL 0.12 mg/kg/dose ([place]) Oral BID ??? thiamine 100 mg Oral [...] management following Dottie Hill APRN 05/18/2022 Pager: [phone] Brannon Isaacs, PT - 05/18/2022 10:00 AM [...] in this evaluation. Time IN / OUT: 5072-8305 Total Minutes, Physical Therapy: 30 Billing Code: Basilio Isaacs, PT Pager: [phone] Physical Therapy Inpatient Rehabilitation Department Emily Sauceda RN - 05/18/2022 4:34 AM EDT OUTCOME EVALUATION NOTE: OUTCOME SUMMARY: Patient AOx4, VSS on 2LNC. Afib on tele. HR above 120, MD aware, PRN IV metop given x1, HR returned to 90's-low 100's. Denies CP, SOB, n/v. See flowsheets for NVC. Dressings to LLE CDI, prevena WV to groin intact. Voiding to urinal. LBM GUARDIAN FAMILY MEMBER. Heparin gtt therapeutic. Pain controlled. Patient sleeping [...] adequately without difficulty to bedside urinal. LBM GUARDIAN FAMILY MEMBER. Patient not OOB this shift. Currently NPO awaitingprocedure in record label intern. PLAN MOVING FORWARD: Bleeding precautions Pain management neurovascular checks PT/OT NPO for record label intern INDIVIDUALIZED FALL PREVENTION INTERVENTIONS: Patient-specific fall risk [...] Emergency Department as a transfer from [facility] with left lower extremity limb ischemia. He went to [facility] and was startedon heparin and transferred to [facility] for evaluation by vascular surgery with subsequent [...] he will will be going to the record label intern for evaluation. Will defer PT eval at present but will see as ordered post cardiac catheritizaton. Social Hx:Pt lives with his Ursula in [place], [place] in a 2 level home in [...] WBAT LLE LISBET HERMAN PT Pager # [phone] In-Pt Rehab Medicine Dottie Hill APRN - 05/17/2022 7:42 AM EDT Vascular Surgery Progress Note Koko Zamora is a 81 y.o. male with w new onset Afib who presents in transfer from [facility] with acute limb ischemia of [...] mL Intravenous BID ??? PHENobarbitaL 0.24 mg/kg/dose ([place]) Oral BID Followed by ??? [START ON 05/18/2022] PHENobarbitaL 0.12 mg/kg/dose ([place]) Oral BID ??? thiamine 100 mg Oral [...] management following Dottie Hill APRN 05/17/2022 Pager: [phone] Sary Dos Santos, RN - 05/17/2022 12:16 [...] Afib who presents in transfer from [facility] with acute limb ischemia of [...] mL Intravenous BID ??? PHENobarbitaL 0.48 mg/kg/dose ([place]) Oral BID Followed by ??? [START ON 05/17/2022] PHENobarbitaL 0.24 mg/kg/dose ([place]) Oral BID Followed by ??? [START ON 05/18/2022] PHENobarbitaL 0.12 mg/kg/dose ([place]) Oral BID ??? thiamine 100 mg Oral [...] management following Edward Rodríguez MD 05/16/2022 Pager: [phone] Sary Dos Santos RN - 05/16/2022 12:52 [...] 2129 Hand off to DION Ramirez 3 [place] documented in this encounter H&P Notes Kerry [...] Afib who presents in transfer from [facility] with acute limb ischemia of [...] Refill ??? fluticasone propionate (FLONASE) 50 mcg/actuation Woolrich, Suspension as needed. ??? fluorouraciL (EFUDEX) 5 [...] and consented. Tim Chicas MD 05/15/2022 Pager: [phone] documented in this encounter ED Notes Lc Harris PA - 05/15/2022 1:20 PM EDT ED Provider Note HPI: Koko Zamora is a 81 y.o. male with history of atrial fibrillation not on anticoagulation, and GI bleeding who presents to the Emergency Department as a transfer from [facility] with left lower extremity limb ischemia. Patient says that the symptoms started roughly 630 this morning when he developed severe pain in his left lower extremity. He went to [facility] and was started on heparin and transferred to [facility] for evaluation by vascular surgery. Review of [...] lower extremity earlier today and went to [facility] where it was determined that he had ischemia of the left lower extremity. Vascular surgery [facility] was contacted and he was transferred [...] orders before pt. Arrival. Pt. Arrived at [facility] by EMS at 1150, vascular team at [...] an outpatient cardiac rehabilitation program at [facility] was discussed. Patient agrees to a referral to this program. Timing will depend on his recovery from Vascular surgery. He is going home w/VNA PT. I gave him the brochure for the program at [facility] for future reference. Care Management [...] information for follow-up Home Health & Hospice, [place] [address] [place] [address] Transportation: family or friend will provide Functional [...] *No Product type* / Secondary Insurance: [facility] Prescription Coverage: Yes This plan was formulated with input from patient and team. All are in agreement with plan. IP RS has communicated with [facility] - for initial IMM. RAlmita (Satish) DION López RN/CM - Cellphone: [phone] Pager: [phone] Covering Service RN/CM Plan of Care - [...] catheterization, transferred in hospital bed accompanied by Behavioral Geneticist RN, remains on telemetry monitoring. Heparin gtt [...] *No Product type* / Secondary Insurance: [facility] Last Physical Therapy Recommendation: home with home health, home with supervision with None Last Occupational Therapy Recommendation: with Plan for discharge is: Home w/ Services Outpatient Agency/Support Group Needs: None Home Health Services: Registered Nurse, Physical Therapy, Occupational Therapy Agency Referrals: I have met with the patient to: ?? discuss discharge planning needs. ?? provide the [facility], Office of Care Management letter from the Brass Pourer pertaining to rehab referrals. ?? provide a letter describing our affiliations within the [facility] and educate about their right to choose where referrals are sent. ?? provide a list of Home Health Agencies / Durable Medical Equipment vendors which serve their preferred geographic area. ?? provided patient with [facility] Star Quality Rating handout. They have requested referrals to: [facility]. [address] [place] [address] Note routed to a Application Architect Manager who will communicate referrals to facilities and provide any required information. Transportation: family or friend will provide Barriers to discharge: None Plan going forward: Patient is going for a cardiac cath today and plan will come from there. Patientwas recently seen by PT and they recommend VNA at time of discharge. [place] was routed and pendedat this time. Care Management will continue to follow and assist with discharge planning and coordination of care as indicated. Anticipated Date of Discharge: 05/21/2022 Nataly RICHMOND RN Phone: [phone] Pager: [phone] Plan of Care - Laney Atkins RN [...] included. Formerly [facility] [place] [address] [address] INPATIENT CARDIOLOGY CONSULT NOTE Date of Consultation: 05/17/2022 Admit Date: 05/15/2022 Hospital Day 2 days Reason for Consult: New afib Active Problems: Active Hospital Problems Diagnosis Limb ischemia Resolved Hospital Problems No resolved problems to display. HPI: Koko Zamora is a 81 y.o. male with a PMHx significant for MVP (s/p MV repair 2000), tobacco use, HLD, who presented to [facility] from OSH on 05/15 with acute limb ischemia of LLE and was found to be in atrial fibrillation. Patient had sudden onset LLE pain on 05/[address] [facility], where he was started on heparin and transferred to [facility]. Upon arrival to [facility], patient was in atrial fib with RVR [...] mouth daily. fluticasone propionate (FLONASE) 50 mcg/actuation Wool[place], Suspension as needed. ascorbic acid, vitamin C, [...] 5 mL Intravenous BID PHENobarbitaL 0.24 mg/kg/dose ([place]) Oral BID Followed by [START ON 05/18/2022] PHENobarbitaL 0.12 mg/kg/dose ([place]) Oral BID thiamine 100 mg Oral Daily folic acid 1,000 mcg Oral Daily multivitamin with minerals 1 tablet Oral Daily heparin (porcine) infusion 1,200 Units/hr (05/17/22 0963) Family History: No family history on file. [...] ED to Hosp-Admission (Current) from 05/15/[address] [place] [address] Office Visit from 04/17/2021 in Pain and Spine Center at [facility] Weight 79.8 kg (175 lb 14.8 oz) [...] continue to follow Anne-Marie Larson MD Pager [phone] Clinic: [phone] 05/17/22 6:22 PM Initial Assessments - Ifrah [...] spouse would be surrogate decision maker per [place] surrogate decision making law. (Only good for 180 days) Any patient receiving care at [facility] must abide by [place] law. The hierarchy [...] (i) The agent with financial power of camp maintenance supervisor or a conservator appointed in accordance with [...] raised toilet seat Home Address confirmed as: [facility] [facility] [address] Social & Family Supports: All names listed below confirmed with patient as Incorrect. Will notify conifer to correct. Wifes address is same as and phone is [phone]. Extended Emergency Contact Information Primary Emergency Contact: Demarco Zamorana Address: [facility] [place] [address] [facility] Relation: Spouse Current Care Provided by: [...] *No Product type* / Secondary Insurance: [facility] Prescription Coverage: Yes Preferred Pharmacy: [id number] - [place], [place] - [address] [facility] [address] [place] [address] [facility] - [place], [place] - [address] [facility] [address] [facility] [address] [place] Status: Patient is a : unable to assess Primary Care Provider: Bobby Das MD [phone] Patient/Caregiver Goals of Treatment: to walk again Potential Needs for Transition of Care: none noted per 05/16 IDR Transportation: family will provide Transportation Anticipated: family or friend will provide Concerns to be Addressed: no discharge needs identified Assessment: Patient is admitted to vascular surg service for left lower extremity limb ischemia Plan: Per PT OT recommendations . Has used [employer] in the past. A member of the Care Management team will continue to monitor progress, follow for continuity of care and assist with transition of care planning. Ifrah Bell RN BSN Coal Pulverizer OperatorLocomotive Observer of Care Management Pager [phone] Brief Op Note - Erin Garza MD - 05/15/2022 5:04 PM EDT Brief Operative Note Patient Name: Koko Zamora : [id number] MR#: [id number] Case Date: 05/15/2022 Surgeon: Surgeon(s) and Role: [...] Garza MD - 05/15/2022 2:08 PM EDT [facility] Operative Note Patient Name: Koko Zamora : [id number] MR#: [id number] Case Date: 05/15/2022 Surgeon: Surgeon(s) and Role: [...] 08/08/2022 Office Visit Gastroenterology Negra Collins MD [facility] GASTROENTEROLOGY DEPT [place], [place] [address] (Wo rk) 09/05/2022 Appointment Cardiology Trinity Reid MD [facility] CARDIOLOGY [place], [place] [address] (Wo rk) 09/05/2022 Office Visit Cardiology Trinity Reid MD [facility] CARDIOLOGY [place], [place] 0[address] (Wo rk) Scheduled Referrals Name [...] Department: Vascular Surgery Lab VASCUBASE Report Patient: [id number] (KOKO ZAMORA) CPT: 67257 Referring Physician: FITO SUMMERS ?? Phone: Indications: s/p L DIABETOLOGIST endart. Diabetes mellitus: no Findings: Right ?Pressure [...] P athologist Signature Heparin UFH 0.42 IU/mL [facility] LABORATORY Comment: Heparin (anti-Xa) levels should [...] Organization Address City/State/[place] [address] Differential, Automated (05/21/2022 6:15 AM EDT) athologist Signature Neutrophils % 58.8 % [facility] LABORATORY Neutr Abs (ANC) 3.97 1.70 - [facility] 6.10 [facility] x10(3)[facility] LABORATORY Lymphocytes % 25.2 % [facility] Lymphocytes Abs 1.7 0.9 - 3.2 [facility] x10(3)/[facility] LABORATORY Monocytes % 12.9 % [facility] Monocyte Abs 0.9 0.3 - 0.9 [facility] x10(3)[facility] LABORATORY Eosinophils % 2.1 % [facility] LABORATORY Eosinophils Abs 0.1 0.0 - 0.4 [facility] x10(3)[facility] LABORATORY Basophils % 0.4 % [facility] LABORATORY Basophils Abs 0.0 0.0 - 0.1 [facility] x10(3)[facility] LABORATORY Immature Gran % 0.60 % [facility] LABORATORY Comment: Immature granulocytes(IG's)percentage an d absolute count will include metamyelocytes, myelocytes, and promyelo cytes. Blood smears from CBCs yielding IG's will be scanned manually for concor dance. If this scan disagrees with the automated IG or if promyelocytes are not ed, a manual differential will be performed. Rain Gran Abs 0.04 0.00 - 0.04 x10(3)/[facility] MAR Y [facility] LABORATORY Specimen Anatomical Collection Method Collection Time Receive d Time (Source) Location / / Volume Laterality Blood 05/21/2022 6:15 AM 2 6:38 EDT AM EDT Resulting Agency Comment Spec In Lab Edward Rodríguez MD HEMATOLOGY ORDERABLES Performing Organization Address City/State/[place] [address] (ABNORMAL) Hemogram (05/21/2022 6:15 AM EDT) [facility] gist Method Time Signature WBC 6.8 4.0 - 9.5 [facility] x10(3)/[facility] LABORATORY RBC 3.59 (L) 4.58 - [facility] FAYE 5.54 [facility] x10(6)/[facility] LABORATORY Hemoglobin 11.8 (L) 13.7 - [facility] g/dL [facility] LABORATORY Hematocrit 34.5 (L) 40.5 - [facility] 48.5 % [facility] LABORATORY MCV 96.1 (H) 82.9 - [facility] 93.1 [facility] LABORATORY MCH 32.9 (H) 27.5 - [facility] FAYE 32.1 pg [facility] LABORATORY MCHC 34.2 32.0 - [facility] FAYE 35.7 g/dL [facility] LABORATORY Platelets 198 145 - 357 [facility] x10(3)/[facility] LABORATORY RDWSD 44.9 36.0 - [facility] 45.0 [facility] LABORATORY RDWCV 12.6 11.4 - [facility] FAYE 13.8 % [facility] LABORATORY MPV 10.0 7.6 - 12.9 [facility] LABORATORY nRBC % Auto 0.3 % [facility] LABORATORY nRBC Abs Auto 0.020 (H) 0.000 - [facility] FAY[facility] 0.000 [facility] x10(3)/[facility] LABORATORY Specimen Anatomical Collection Method Collection Time Receive d Time (Source) Location / / Volume Laterality Blood 05/21/2022 6:15 AM 2 6:38 EDT AM EDT Resulting Agency Comment Spec In Lab Edward Rodríguez MD HEMATOLOGY ORDERABLES Performing Organization Address City/State/[place] [address] EKG 12 Lead (05/20/2022 7:04 PM EDT) Component Value Ref Range Test Analysis Performed Pathologis t Method Time At Signature Ventricular rate 101 BPM MUSE SYSTEM QRS Duration 116 ms MUSE SYSTEM Q-T Interval 378 ms MUSE SYSTEM QTC Calculated 490 ms MUSE SYSTEM (Bezet) Calculated R [place] -53 degrees MUSE SYSTEM Calculated T [place] 101 degrees MUSE SYSTEM INTERPRETATION Atrial fibrillation [...] SYSTEM - 05/20/2022 7:09 PM ED T ?[facility] ? Cardiac Cathete rization/Intervention Report ? Patient Name: ZamoraKoko ? Procedure Date: 05/20/2022 ? A #: [id number] ? Primary Physician: Abundio Servin ? Case #: [id number] ? File Name: [id number] ? Catheterization Order Number: [id number] ? [facility] ? Final Report [place], [place] ? Patient Name: ? Koko J. Klarissa uson ? ID#: ?[id number] ? : ?1940 ? Procedure Date: ? May 20, 2022 ?Case #: ? [id number] ? Room: ? 1 ? Case Physician: ? Abundio roldan, M.D. ? Start: ?17:16 ? Admission: ??05/15/2022 ? Referring Physician: ??Aroldo Malik. ? Procedures: ?* Coronary Angiography ?* Left [...] procedure was Urgent. The indication for ?the record label intern visit is cardiomyo nita. Chest pain symptom [...] ?3.5 guiding catheter and a 3.5 Fr [facility] [address] ??20 Mhz. ??Imaging ?was successful. ??Image [...] premounted 2. 75 x 30 mm Rudy Clarion (AMPARO) was deployed ? with a maximum [...] may require ?modification of this regimen. C [facility] Interventional Cardiology for ?questions. ?The [...] POC Glucose 123 65 - 199 [facility] mg/dL [facility] LABORATORY Comment: Supplemental ranges: <140 mg/dL before meals <180 mg/dL all other times of the day Specimen Anatomical Collection Method Collection Time Receive d Time (Source) Location / / Volume Laterality Blood 05/20/2022 5:42 PM 5:42 EDT PM EDT Fito Summers MD POINT OF CARE TEST ORDERABLE S Performing Organization Address City/State/ZIP [place] [address] (ABNORMAL) BMP w/fasting Glucose (05/20/2022 10:50 AM EDT) P athologist Signature Glucose 152 (H) 65 - 99 [facility] Fasting mg/dL [facility] LABORATORY Comment: ?Fasting* Glucose Interpretive [...] of Diabetes Mellitus, Position Statement from the [place] [employer]. ??Diabete s Care, Volume 33, Supplement 1, Nov 2009 BUN 11 10 - 20 mg/dL [facility] LABORATORY Creatinine 0.63 (L) 0.80 - 1.50 mg/dL [facility] LABORATORY Sodium 137 135 - [...] estions. Chloride 103 98 - 107 mmol/L [facility] LABORATORY CO2 24 22 - 31 mmol/L [facility] LABORATORY Anion Gap 10 5 - 15 mmol/L [facility] LABORATORY Calcium 8.7 8.5 - 10.5 mg/dL [facility] LABORATORY Estimated GFR 97 >=60 mL/min/1.73 m?? [facility] LABORATORY [...] Organization Address City/State/[place] [address] Heparin (unfractionated) Level (05/20/2022 5:02 AM EDT) P athologist Signature Heparin UFH 0.57 IU/mL [facility] LABORATORY Comment: Heparin (anti-Xa) levels should [...] Organization Address City/State/[place] [address] (ABNORMAL) Differential, Automated (05/20/2022 5:02 AM EDT) [facility] gist Method Time Signature Neutrophils % 58.1 % [facility] LABORATORY Neutr Abs (ANC) 4.52 1.70 - [facility] 6.10 [facility] x10(3)/[facility] LABORATORY Lymphocytes % 24.1 % [facility] LABORATORY Lymphocytes Abs 1.9 0.9 - 3.2 [facility] x10(3)/[facility] LABORATORY Monocytes % 13.8 % [facility] LABORATORY Monocyte Abs 1.1 (H) 0.3 - 0.9 [facility] x10(3)/[facility] LABORATORY Eosinophils % 2.6 % [facility] LABORATORY Eosinophils Abs 0.2 0.0 - 0.4 [facility] x10(3)/[facility] LABORATORY Basophils % 0.8 % [facility] LABORATORY Basophils Abs 0.1 0.0 - 0.1 [facility] x10(3)/[facility] LABORATORY Immature Gran % 0.60 % [facility] LABORATORY Comment: Immature granulocytes(IG's)percentage an d absolute count will include metamyelocytes, myelocytes, and promyelo cytes. Blood smears from CBCs yielding IG's will be scanned manually for tracy armstrong. If this scan disagrees with the automated IG or if promyelocytes are not ed, a manual differential will be performed. Rain Gran Abs 0.05 (H) 0.00 - 0.04 x10(3)/[facility] LABORATORY Specimen Anatomical Collection Method Collection Time Receive d Time (Source) Location / / Volume Laterality Blood 05/20/2022 5:02 AM 5:19 EDT AM EDT Resulting Agency Comment Spec In Lab Edward Rodríguez MD HEMATOLOGY ORDERABLES Performing Organization Address City/State/[place] [address] (ABNORMAL) Hemogram (05/20/2022 5:02 AM EDT) Analysis Performed At Patho logist Time Signature WBC 7.8 4.0 - 9.5 [facility] x10(3)/[facility] LABORATORY RBC 3.53 (L) 4.58 - [facility] 5.54 [facility] x10(6)/[facility] LABORATORY Hemoglobin 11.4 (L) 13.7 - [facility] 16.5 g/dL [facility] LABORATORY Hematocrit 34.3 (L) 40.5 - [facility] 48.5 % [facility] LABORATORY MCV 97.2 (H) 82.9 - [facility] 93.1 [facility] LABORATORY MCH 32.3 (H) 27.5 - [facility] 32.1 pg [facility] LABORATORY MCHC 33.2 32.0 - [facility] 35.7 g/dL [facility] LABORATORY Platelets 181 145 - 357 [facility] x10(3)/[facility] LABORATORY RDWSD 46.4 (H) 36.0 - [facility] 45.0 [facility] LABORATORY RDWCV 13.0 11.4 - [facility] 13.8 % [facility] LABORATORY MPV 10.4 7.6 - 12.9 [facility] LABORATORY nRBC % Auto 0.0 % [facility] LABORATORY nRBC Abs Auto 0.000 0.000 - [facility] 0.000 [facility] x10(3)/[facility] LABORATORY Specimen Anatomical Collection Method Collection Time Receive d Time (Source) Location / / Volume Laterality Blood 05/20/2022 5:02 AM 2 5:19 EDT AM EDT Resulting Agency Comment Spec In Lab Edward Rodríguez MD HEMATOLOGY ORDERABLES Performing Organization Address City/[facility]/[place] [address] [facility] LABORATORY Drive Heparin (unfractionated) Level (05/19/2022 3:26 AM EDT) P athologist Signature Heparin UFH 0.59 IU/mL [facility] LABORATORY Comment: Heparin (anti-Xa) levels should [...] Summers MD HEMATOLOGY ORDERABLES Performing Organization Address City/[facility]/[place] [address] (ABNORMAL) Differential, Automated (05/19/2022 3:26 AM EDT) Patholo gist Method Time Signature Neutrophils % 62.1 % [facility] LABORATORY Neutr Abs (ANC) 4.59 1.70 - [facility] 6.10 [facility] x10(3)/[facility] LABORATORY Lymphocytes % 22.1 % [facility] LABORATORY Lymphocytes Abs 1.6 0.9 - 3.2 [facility] x10(3)/[facility] LABORATORY Monocytes % 13.5 % [facility] LABORATORY Monocyte Abs 1.0 (H) 0.3 - 0.9 [facility] x10(3)/[facility] LABORATORY Eosinophils % 1.3 % [facility] LABORATORY Eosinophils Abs 0.1 0.0 - 0.4 [facility] x10(3)/[facility] LABORATORY Basophils % 0.5 % [facility] LABORATORY Basophils Abs 0.0 0.0 - 0.1 [facility] x10(3)/[facility] LABORATORY Immature Gran % 0.50 % [facility] LABORATORY Comment: Immature granulocytes(IG's)percentage an d absolute count will include metamyelocytes, myelocytes, and promyelo cytes. Blood smears from CBCs yielding IG's will be scanned manually for concor dance. If this scan disagrees with the automated IG or if promyelocytes are not ed, a manual differential will be performed. Rain Gran Abs 0.04 0.00 - 0.04 x10(3)/[facility] MAR Y [facility] LABORATORY Specimen Anatomical Collection Method Collection Time Receive d Time (Source) Location / / Volume Laterality Blood 05/19/2022 3:26 AM 2 3:59 EDT AM EDT Resulting Agency Comment Spec In Lab Edward Rodríguez MD HEMATOLOGY ORDERABLES Performing Organization Address City/State/[place] [address] (ABNORMAL) Hemogram (05/19/2022 3:26 AM EDT) Analysis Performed At Patho logist Time Signature WBC 7.4 4.0 - 9.5 [facility] x10(3)/[facility] LABORATORY RBC 3.74 (L) 4.58 - [facility] 5.54 [facility] x10(6)/[facility] LABORATORY Hemoglobin 12.1 (L) 13.7 - [facility] 16.5 g/dL [facility] LABORATORY Hematocrit 36.4 (L) 40.5 - [facility] 48.5 % [facility] LABORATORY MCV 97.3 (H) 82.9 - [facility] 93.1 [facility] LABORATORY MCH 32.4 (H) 27.5 - [facility] [place] 32.1 pg [facility] LABORATORY MCHC 33.2 32.0 - [facility] [place] 35.7 g/dL [facility] LABORATORY Platelets 168 145 - 357 [facility] x10(3)/[facility] LABORATORY RDWSD 46.9 (H) 36.0 - [facility] [place]AG[place] 45.0 [facility] LABORATORY RDWCV 13.0 11.4 - [facility] [place] 13.8 % [facility] LABORATORY MPV 10.5 7.6 - 12.9 [facility] FAYE [facility] LABORATORY nRBC % Auto 0.0 % [facility] LABORATORY nRBC Abs Auto 0.000 0.000 - [facility] [place] 0.000 [facility] x10(3)/[facility] LABORATORY Specimen Anatomical Collection Method Collection Time Receive d Time (Source) Location / / Volume Laterality Blood 05/19/2022 3:26 AM 2 3:59 EDT AM EDT Resulting Agency Comment Spec In Lab Edward Rodríguez MD HEMATOLOGY ORDERABLES Performing Organization Address City/State/ZIP [place] [address] TSH (05/18/2022 8:00 PM EDT) P athologist Signature TSH 2.27 0.27 - 4.20 [facility] mcIU/mL [facility] LABORATORY Comment: Reference Interval (mcIU/mL): Females: ??First Trimester: 0.23-3.88 ??Second Trimester: 0.22-3.90 ??Third Trimester: 0.44-4.66 Specimen Anatomical Collection Method Collection Time Receive d Time (Source) Location / / Volume Laterality Blood 05/18/2022 8:00 PM 2 8:06 EDT PM EDT Resulting Agency Comment Spec In Lab Fito Summers MD CHEMISTRY ORDERABLES Performing Organization Address City/State/ZIP [place] [address] (ABNORMAL) Differential, Automated (05/18/2022 3:34 AM EDT) [facility] Signature Neutrophils % 67.2 % [facility] LABORATORY Neutr Abs (ANC) 5.89 1.70 - [facility] 6.10 [facility] x10(3)/[facility] LABORATORY Lymphocytes % 17.1 % [facility] LABORATORY Lymphocytes Abs 1.5 0.9 - 3.2 [facility] x10(3)/[facility] LABORATORY Monocytes % 13.6 % [facility] LABORATORY Monocyte Abs 1.2 (H) 0.3 - 0.9 [facility] x10(3)/[facility] LABORATORY Eosinophils % 1.0 % [facility] LABORATORY Eosinophils Abs 0.1 0.0 - 0.4 [facility] x10(3)/[facility] LABORATORY Basophils % 0.6 % [facility] LABORATORY Basophils Abs 0.0 0.0 - 0.1 [facility] x10(3)/[facility] LABORATORY Immature Gran % 0.50 % [facility] LABORATORY Comment: Immature granulocytes(IG's)percentage an d absolute count will include metamyelocytes, myelocytes, and promyelo cytes. Blood smears from CBCs yielding IG's will be scanned manually for concor dance. If this scan disagrees with the automated IG or if promyelocytes are not ed, a manual differential will be performed. Rain Gran Abs 0.04 0.00 - 0.04 x10(3)/[facility] MAR Y [facility] LABORATORY Specimen Anatomical Collection Method Collection Time Receive d Time (Source) Location / / Volume Laterality Blood 05/18/2022 3:34 AM 3:48 EDT AM EDT Resulting Agency Comment Spec In Lab Edward Rodríguez MD HEMATOLOGY ORDERABLES Performing Organization Address City/State/[place] [address] (ABNORMAL) Hemogram (05/18/2022 3:34 AM EDT) Analysis Performed At [facility] logist Time Signature WBC 8.8 4.0 - 9.5 [facility] x10(3)/[facility] LABORATORY RBC 3.45 (L) 4.58 - [facility] FAYE 5.54 [facility] x10(6)/[facility] LABORATORY Hemoglobin 11.2 (L) 13.7 - [facility] 16.5 g/dL [facility] LABORATORY Hematocrit 33.0 (L) 40.5 - [facility] 48.5 % [facility] LABORATORY MCV 95.7 (H) 82.9 - [facility] 93.1 [facility] LABORATORY MCH 32.5 (H) 27.5 - [facility] 32.1 pg [facility] LABORATORY MCHC 33.9 32.0 - [facility] 35.7 g/dL [facility] LABORATORY Platelets 130 (L) 145 - 357 [facility] x10(3)/[facility] LABORATORY RDWSD 46.2 (H) 36.0 - [facility] 45.0 [facility] RDWCV 13.2 11.4 - [facility] 13.8 % [facility] LABORATORY MPV 10.8 7.6 - 12.9 [facility] LABORATORY nRBC % Auto 0.0 % [facility] LABORATORY nRBC Abs Auto 0.000 0.000 - [facility] 0.000 [facility] x10(3)/[facility] LABORATORY Specimen Anatomical Collection Method Collection Time Receive d Time (Source) Location / / Volume Laterality Blood 05/18/2022 3:34 AM 3:48 EDT AM EDT Resulting Agency Comment Spec In Lab Edward Rodríguez MD HEMATOLOGY ORDERABLES Performing Organization Address City/State/[place] [address] Heparin (unfractionated) Level (05/18/2022 3:34 AM EDT) P athologist Signature Heparin UFH 0.59 IU/mL [facility] LABORATORY Comment: Heparin (anti-Xa) levels should [...] EDT Resulting Agency Comment Spec In Lab iFto Summers MD HEMATOLOGY ORDERABLES Performing Organization Address City/[facility]/ZIP Code Phon e Number [address] Magnesium (05/17/2022 3:33 AM EDT) athologist Signature Magnesium 0.76 0.69 - 1.07 [facility] mmol/L [facility] LABORATORY Specimen Anatomical Collection Method Collection Time Receive d Time (Source) Location / / Volume Laterality Blood Venous Draw / 05/17/2022 3:33 AM 05/17/20 4:05 Unknown EDT AM EDT Resulting Agency Comment Spec In Lab Dottie Hill APRN CHEMISTRY ORDERABLES Performing Organization Address City/[facility]/ZIP [place] [address] (ABNORMAL) Basic Metabolic Panel (non-fasting) (05/17/2022 3:33 AM EDT) P athologist Signature Glucose Lvl 158 65 - 199 [facility] mg/dL [facility] LABORATORY Comment: Diabetes: >=200 mg/dL plus symp toms BUN 12 10 - 20 mg/dL [facility] LABORATORY Creatinine 0.74 (L) 0.80 - 1.50 mg/dL [facility] LABORATORY Sodium 137 135 - 145 mmol/L [facility] LABORATORY Potassium 3.5 3.5 - 5.0 mmol/L [facility] LABORATORY Comment: Please note: ??Patients with WBC >100,00 0 may have falsely elevated Potassium levels. ??For accurate Potassium quantif ication in these patients send serum separator tube (gold top) for subsequent determinations. ??Contact the Clinical Chemistry Laboratory if there are any qu estions. Chloride 102 98 - 107 mmol/L [facility] LABORATORY CO2 25 22 - 31 mmol/L [facility] LABOR[facility] Anion Gap 10 5 - 15 mmol/L [facility] LABORATORY Calcium 8.4 (L) 8.5 - 10.5 mg/dL [facility] LABORATORY Estimated GFR 92 >=60 mL/min/1.73 m?? [facility] LABORATORY [...] Organization Address City/State/[place] [address] (ABNORMAL) Differential, Automated (05/17/2022 3:33 AM EDT) [facility] gist Method Time Signature Neutrophils % 65.5 % [facility] LABORATORY Neutr Abs (ANC) 6.84 (H) 1.70 - [facility] 6.10 [facility] x10(3)/[facility] LABORATORY Lymphocytes % 19.7 % [facility] LABORATORY Lymphocytes Abs 2.1 0.9 - 3.2 [facility] x10(3)/[facility] LABORATORY Monocytes % 13.1 % [facility] LABORATORY Monocyte Abs 1.4 (H) 0.3 - 0.9 [facility] x10(3)/[facility] LABORATORY Eosinophils % 0.6 % [facility] LABORATORY Eosinophils Abs 0.1 0.0 - 0.4 [facility] x10(3)/[facility] LABORATORY Basophils % 0.6 % [facility] LABORATORY Basophils Abs 0.1 0.0 - 0.1 [facility] x10(3)/[facility] LABORATORY Immature Gran % 0.50 % [facility] LABORATORY Comment: Immature granulocytes(IG's)percentage an d absolute count will include metamyelocytes, myelocytes, and promyelo cytes. Blood smears from CBCs yielding IG's will be scanned manually for concor dance. If this scan disagrees with the automated IG or if promyelocytes are not ed, a manual differential will be performed. Rain Gran Abs 0.05 (H) 0.00 - 0.04 x10(3)/[facility] LABORATORY Specimen Anatomical Collection Method Collection Time Receive d Time (Source) Location / / Volume Laterality Blood 05/17/2022 3:33 AM 3:53 EDT AM EDT Resulting Agency Comment Spec In Lab Edward Rodríguez MD HEMATOLOGY ORDERABLES Performing Organization Address City/State/[place] [address] (ABNORMAL) Hemogram (05/17/2022 3:33 AM EDT) Analysis Performed At Patho logist Time Signature WBC 10.4 (H) 4.0 - 9.5 [facility] x10(3)/[facility] LABORATORY RBC 3.72 (L) 4.58 - [facility] 5.54 [facility] x10(6)/[facility] LABORATORY Hemoglobin 12.0 (L) 13.7 - [facility] 16.5 g/dL [facility] LABORATORY Hematocrit 36.4 (L) 40.5 - [facility] 48.5 % [facility] LABORATORY MCV 97.8 (H) 82.9 - [facility] [place] 93.1 [facility] LABORATORY MCH 32.3 (H) 27.5 - [facility] [place] 32.1 pg [facility] LABORATORY MCHC 33.0 32.0 - [facility] [place] 35.7 g/dL [facility] LABORATORY Platelets 149 145 - 357 [facility] x10(3)/[facility] LABORATORY RDWSD 48.7 (H) 36.0 - [facility]AY[facility] 45.0 [facility] LABORATORY RDWCV 13.5 11.4 - [facility] 13.8 % [facility] LABORATORY MPV 10.6 7.6 - 12.9 [facility] LABORATORY nRBC % Auto 0.0 % [facility] LABORATORY nRBC Abs Auto 0.000 0.000 - [facility] 0.000 [facility] x10(3)/[facility] LABORATORY Specimen Anatomical Collection Method Collection Time Receive d Time (Source) Location / / Volume Laterality Blood 05/17/2022 3:33 AM 3:53 EDT AM EDT Resulting Agency Comment Spec In Lab Edward Rodríguez MD HEMATOLOGY ORDERABLES Performing Organization Address City/State/ZIP [place] [address] (ABNORMAL) Urinalysis Microscopic Exam (05/16/2022 11:15 PM EDT) P athologist Signature RBC UA 8 (H) 0 - 3 /HPF [facility] LABORATORY WBC UA 2 0 - 3 /HPF [facility] LABORATORY Specimen Anatomical Collection Method Collection Time Receive d Time (Source) Location / / Volume Laterality Clean Catch 05/16/2022 11:15 05/16/2022 Urine PM EDT 11:30 PM EDT Resulting Agency Comment Spec In Lab Barbie Ashraf MD URINE ORDERABLES Performing Organization Address City/State/ZIP [place] [address] (ABNORMAL) Urinalysis with reflex Culture (05/16/2022 11:15 PM EDT) Patholo gist Method Time Signature Glucose UA Negative Negative [facility] mg/dL [facility] Protein UA Negative Negative [facility] mg/dL [facility] Bilirubin UA Negative Negative [facility] mg/dL [facility] Comment: Clinical correlation required for positi ve Urine Bilirubin results as false positive may occur with some drugs and d rug related products. If a false positive is suspected a serum total bili quarles should be considered if clinically indicated. Urobilinogen UA Normal Normal mg/dL [facility] LABORATORY pH UA 6.0 5.0 - 8.0 [facility] Blood UA Small (A) Negative mg/dL [facility] Ketones UA Trace (A) Negative mg/dL [facility] Nitrite UA Negative Negative [facility] Leukocytes UA Negative Negative [facility] LABORATORY Appearance UA Clear Clear [facility]OR[facility] Spec [place] UA 1.021 1.005 - 1.030 [facility] Color UA Yellow Yellow [facility] Culture Reflexed No [facility]ORY Specimen Anatomical Collection Method Collection Time Receive d Time (Source) Location / / Volume Laterality Clean Catch 05/16/2022 11:15 05/16/2022 Urine PM EDT 11:30 PM EDT Resulting Agency Comment Spec In Lab Fito Summers MD URINE ORDERABLES Performing Organization Address City/State/[place] [address] Heparin (unfractionated) Level (05/16/2022 10:59 PM EDT) P athologist Signature Heparin UFH 0.65 IU/mL [facility] LABORATORY Comment: Specimen drawn more than [...] Organization Address City/State/ZIP Code Phon e Number [place] [id number] XR Chest One View [...] who have questions please contact the health caregivers non medical that requested your imaging first. ? Narrative [...] ho have questions please contact the health caregivers non medical that requested your imaging first. Electronically signed by: Tiffanie George MD , [facility] ([phone]), at 05/16/2022 9:27 PM Fito Summers MD IMG DX ORDERABLES EKG 12 Lead (05/16/2022 8:57 PM EDT) Component Value Ref Range Test Analysis Performed Pathologis t Method Time At Signature Ventricular rate 117 BPM MUSE SYSTEM QRS Duration 112 ms MUSE SYSTEM Q-T Interval 346 ms MUSE SYSTEM QTC Calculated 482 ms MUSE SYSTEM (Bezet) Calculated R [place] -48 degrees MUSE SYSTEM Calculated T [place] 111 degrees MUSE SYSTEM INTERPRETATION Atrial fibrillation with rapid ventricular response MUSE SYSTEM Left anterior fascicular block Minimal voltage criteria for LVH, may be normal variant ( Franklin product ) Nonspecific ST and T wave [...] EDT) athologist Signature Heparin UFH 0.53 IU/mL [facility] LABORATORY Comment: Heparin (anti-Xa) levels should [...] Organization Address City/State/ZIP Code Phon e Number [place] [phone] ECHOCARDIOGRAM COMPLETE W CONTRAST (05/16/2022 12:49 PM EDT) athologist Signature EF 28 [facility] Specimen (Source) Anatomical Collection Method Collection Time Re ceived Time Location / / Volume Laterality 05/16/2022 11:22 AM EDT Narrative [facility] - 05/16/2022 1:54 PM EDT ?[facility] ?[address] ? [place] [address] ?Voice: ?Fax: ? Echocardiogram Report Name: KOKO ZAMORA ?Study Date: 05/16/2022 11:22 AM ? Patient Location: 3WST 0303 B : 1940 ? Height: 67.5 in ? Account: [id number] Age: 81 yrs ? Weight: 176 lb Gender: Male ?BSA: 1.9 m2 Ordering Physician: FITO SUMMERS Referring Physician: MALI FLORIAN Performed By: Jolene Bernard LOLLY Exam Location: [facility]. Interpretation Summary Left ventricle is mildly dilated. [...] and LV systolic dysfunction are new. Procedure [id number]. Image enhancement Optiso n was used for [...] note might be different from the original. [place] [address] [place] [address] Voice: Fax: Echocardiogram Report Name: KOKO ZAMORA Study Date: 05/2022 11:22 AM Patient Location: [facility] 0 303 B : 1940 Height: 67.5 in Account: [id number] Age: 81 yrs Weight: 176 lb Gender: Male BSA: 1.9 m2 Ordering Physician: FITO SUMMERS Referring Physician: MALI FLORIAN Performed By: Jolene Bernard RDCS Exam Location: [facility]. Interpretation Summary Left ventricle is mildly dilated. [...] and LV systolic dysfunction are new. Procedure Complete-[id number]. Image enhancement Optiso n was used for [...] across the aortic valve is 13 mmHg. JUEVNAL 1.2 cm2. There is no aortic regurgit [...] small Interpret Hypokinetic Dyskinetic 3-5 mod erate 14 large Aneurysmal 15-16 diffuse Fito Summers MD ECHO ORDERABLES Performing Organization Address City/State/ZIP Code Phon e Number [facility] (ABNORMAL) Differential, Automated (05/16/2022 3:01 AM EDT) [facility] gist Method Time Signature Neutrophils % 78.8 % [facility] Neutr Abs (ANC) 9.11 (H) 1.70 - [facility] 6.10 [facility] x10(3)/[facility] LABORATORY Lymphocytes % 9.4 % [facility] Lymphocytes Abs 1.1 0.9 - 3.2 [facility] x10(3)/[facility] LABORATORY Monocytes % 10.9 % [facility] Monocyte Abs 1.3 (H) 0.3 - 0.9 [facility] x10(3)/[facility] LABORATORY Eosinophils % 0.0 % [facility] Eosinophils Abs 0.0 0.0 - 0.4 [facility] x10(3)/[facility] LABORATORY Basophils % 0.3 % [facility] Basophils Abs 0.0 0.0 - 0.1 [facility] x10(3)/[facility] LABORATORY Immature Gran % 0.60 % [facility] Comment: Immature granulocytes(IG's)percentage an d absolute count will include metamyelocytes, myelocytes, and promyelo cytes. Blood smears from CBCs yielding IG's will be scanned manually for concor danlara. If this scan disagrees with the automated IG or if promyelocytes are not ed, a manual differential will be performed. Rain Gran Abs 0.07 (H) 0.00 - 0.04 x10(3)/[facility] LABORATORY Specimen Anatomical Collection Method Collection Time Receive d Time (Source) Location / / Volume Laterality Blood 05/16/2022 3:01 AM 3:36 EDT AM EDT Resulting Agency Comment Spec In Lab Erin Garza MD HEMATOLOGY ORDERABLES Performing Organization Address City/State/[place] [address] (ABNORMAL) Hemogram (05/16/2022 3:01 AM EDT) Analysis Performed At Patho logist Time Signature WBC 11.6 (H) 4.0 - 9.5 [facility] x10(3)/[facility] LABORATORY RBC 3.62 (L) 4.58 - [facility] 5.54 [facility] x10(6)/[facility] LABORATORY Hemoglobin 12.0 (L) 13.7 - [facility] 16.5 g/dL [facility]ORY Hematocrit 35.3 (L) 40.5 - [facility] 48.5 % [facility] LABORATORY MCV 97.5 (H) 82.9 - [facility] 93.1 [facility] LABORATORY MCH 33.1 (H) 27.5 - [facility] 32.1 pg [facility] LABORATORY MCHC 34.0 32.0 - [facility] 35.7 g/dL [facility] LABORATORY Platelets 151 145 - 357 [facility] x10(3)/[facility] LABORATORY RDWSD 47.6 (H) 36.0 - [facility] 45.0 [facility] LABORATORY RDWCV 13.3 11.4 - [facility] 13.8 % [facility] LABORATORY MPV 10.5 7.6 - 12.9 [facility] LABORATORY nRBC % Auto 0.0 % [facility] nRBC Abs Auto 0.000 0.000 - [facility] 0.000 [facility] x10(3)/[facility] LABORATORY Specimen Anatomical Collection Method Collection Time Receive d Time (Source) Location / / Volume Laterality Blood 05/16/2022 3:01 AM 2 3:36 EDT AM EDT Resulting Agency Comment Spec In Lab Erin Garza MD HEMATOLOGY ORDERABLES Performing Organization Address City/State/ZIP Code Phon e Number [address] Phosphorus (05/16/2022 3:01 AM EDT) athologist Signature Phosphorus 3.7 2.5 - 4.5 [facility] mg/dL [facility] LABOR[facility]ORY Specimen Anatomical Collection Method Collection Time Receive d Time (Source) Location / / Volume Laterality Blood 05/16/2022 3:01 AM 2 3:36 EDT AM EDT Resulting Agency Comment Spec In Lab Fito Summers MD CHEMISTRY ORDERABLES Performing Organization Address City/[facility]/ZIP Code Phon e Number [address] Magnesium (05/16/2022 3:01 AM EDT) athologist Signature Magnesium 0.77 0.69 - 1.07 [facility] mmol/L [facility]ORY Specimen Anatomical Collection Method Collection Time Receive d Time (Source) Location / / Volume Laterality Blood 05/16/2022 3:01 AM 2 3:36 EDT AM EDT Resulting Agency Comment Spec In Lab Fito Summers MD CHEMISTRY ORDERABLES Performing Organization Address City/[facility]/ZIP [place] [address] (ABNORMAL) Basic Metabolic Panel (non-fasting) (05/16/2022 3:01 AM EDT) athologist Signature Glucose Lvl 222 (H) 65 - 199 [facility] mg/dL [facility]ORY Comment: Diabetes: >=200 mg/dL plus symp toms BUN 12 10 - 20 mg/dL [facility] Creatinine 0.66 (L) 0.80 - 1.50 mg/dL [facility] LABORATORY Sodium 138 135 - 145 mmol/L [facility] LABORATORY Potassium 4.5 3.5 - 5.0 mmol/L [facility] LABORATORY Comment: Please note: ??Patients with WBC >100,00 0 may have falsely elevated Potassium levels. ??For accurate Potassium quantif ication in these patients send serum separator tube (gold top) for subsequent determinations. ??Contact the Clinical Chemistry Laboratory if there are any qu estions. Chloride 108 (H) 98 - 107 mmol/L [facility] CO2 22 22 - 31 mmol/L [facility] Anion Gap 8 5 - 15 mmol/L [facility]ORY Calcium 8.2 (L) 8.5 - 10.5 mg/dL [facility] LABORATORY Estimated GFR 95 >=60 mL/min/1.73 m?? [facility] LAB[facility] [...] Organization Address City/State/[place] [address] (ABNORMAL) BLOOD GAS 2 ARTERIAL (05/15/2022 3:33 PM EDT) Analysis Performed At Patho logist Time Signature pH Art 7.33 (L) 7.35 - [facility] 7.45 [facility] LABORATORY pCO2 Art 41 35 - 45 [facility] LABORATORY pO2 Art 131 (H) 85 - 104 [facility] LABORATORY HCO3 Art 21.1 20.0 - [facility] 26.0 [facility] mmol/L [facility] LABORATORY BE Art -4.8 (L) -3.0 - 3.0 [facility] mmol/L [facility] LABOR[facility]ORY Hgb Blood Gas 13.4 (L) 13.7 - [facility] 16.5 g/dL [facility] O2HB Art 96.9 94.0 - [facility] 97.0 % [facility]ORATORY COHB Art 1.4 % [facility] Comment: Nonsmokers: 0.5-1.5% COHB Smokers: Variable, but usually less than 10% Toxic: 20-30% COHB Lethal: Greater than 60% COHB METHB Art 0.3 <=1.5 % [facility]OR[facility]ORY Na Whole Blood 139 135 - 145 mmol/L [facility] K Whole Blood 3.8 3.5 - 5.0 mmol/L [facility] Comment: Please note: Patients with WBC >100,000 may have falsely elevated Potassium levels. Contact the Clinical Chemistry L aboratory if there are any questions. ICa Whole Blood 1.32 1.15 - 1.33 mmol/L [facility] Comment: Note: ??Total bilirubin higher than 20 m g/dL may lead to falsely low ionized calcium. CL Whole Blood 113 (H) 98 - 107 mmol/L [facility] LABORATORY Gluc Whole Bld 136 65 - 199 mg/dL [facility] LABOR[facility]ORY Comment: Diabetes: >=200 mg/dL plus symp toms. Lactate WB 2.0 0.5 - 2.2 mmol/L [facility] LABORATORY Specimen Anatomical Collection Method Collection Time Receive d Time (Source) Location / / Volume Laterality Blood 05/15/2022 3:33 PM 3:[address] Jamel Torre MD CHEMISTRY ORDERABLES Performing Organization Address City/State/ZIP [place] [address] (ABNORMAL) BLOOD GAS 2 ARTERIAL (05/15/2022 2:06 PM EDT) Analysis Performed At Patho logist Time Signature pH Art 7.39 7.35 - [facility] 7.45 [facility] LABORATORY pCO2 Art 35 35 - 45 [facility] mmHg [facility] LABORATORY pO2 Art 135 (H) 85 - 104 [facility] mmHg [facility] LABORATORY HCO3 Art 20.8 20.0 - [facility] 26.0 [facility] mmol/L [facility] LABORATORY BE Art -4.2 (L) -3.0 - 3.0 [facility] mmol/L [facility] LABORATORY Hgb Blood Gas 14.5 13.7 - [facility] 16.5 g/dL [facility] O2HB Art 97.2 (H) 94.0 - [facility] 97.0 % [facility] LABORATORY COHB Art 1.2 % [facility] Comment: Nonsmokers: 0.5-1.5% COHB Smokers: Variable, but usually less than 10% Toxic: 20-30% COHB Lethal: Greater than 60% COHB METHB Art 0.3 <=1.5 % [facility] LABORATORY Na Whole Blood 140 135 - 145 mmol/L [facility] K Whole Blood 3.8 3.5 - 5.0 mmol/L [facility] Comment: Please note: Patients with WBC >100,000 may have falsely elevated Potassium levels. Contact the Clinical Chemistry L aboratory if there are any questions. ICa Whole Blood 1.12 (L) 1.15 - 1.33 mmol/L [facility] Comment: Note: ??Total bilirubin higher than 20 m g/dL may lead to falsely low ionized calcium. CL Whole Blood 109 (H) 98 - 107 mmol/L [facility] LABORATORY Gluc Whole Bld 152 65 - 199 mg/dL [facility] Comment: Diabetes: >=200 mg/dL plus symp toms. Lactate WB 1.5 0.5 - 2.2 mmol/L [facility] LABORATORY Specimen Anatomical Collection Method Collection Time Receive d Time (Source) Location / / Volume Laterality Blood 05/15/2022 2:06 PM 2:[address] Jamel Torre MD CHEMISTRY ORDERABLES Performing Organization Address City/State/ZIP [place] [address] (ABNORMAL) Prothrombin Time (05/15/2022 12:30 PM EDT) athologist Signature PT 12.9 (H) 9.4 - 12.5 [facility] LABORATORY INR 1.1 [facility] Comment: An INR [...] d Time (Source) Location / / Volume [facility] Blood 05/15/2022 12:30 05/15/2022 1:00 PM EDT PM EDT Resulting Agency Comment Spec In Lab Jhonny Morales DO HEMATOLOGY ORDERABLES Performing Organization Address City/State/ZIP [place] [address] (ABNORMAL) APTT (05/15/2022 12:30 PM EDT) athologist Signature PTT 76 (H) 25 - [address] [facility] Comment: The PTT is NOT appropriate for heparin m onitoring. Use the Anti-Xa level for heparin monitoring (HEP UFH) or LMWH mon itoring (HEP LMW). A PTT less than 37 seconds generally indicates adequate hem ostasis. Specimen Anatomical Collection Method Collection Time Receive d Time (Source) Location / / Volume [facility] Blood 05/15/2022 12:30 05/15/2022 1:00 PM EDT PM EDT Resulting Agency Comment Spec In Lab Jhonny Morales DO HEMATOLOGY ORDERABLES Performing Organization Address City/State/ZIP [place] [address] Gold Tube HOLD (05/15/2022 12:20 PM EDT) P athologist Signature Gold Hold Sample in [facility]. [facility] LABORATORY Specimen Anatomical Collection Method Collection Time Receive d Time (Source) Location / / Volume Laterality Blood No Charge / 05/15/2022 12:20 05/15/2022 Unknown PM EDT 12:20 PM EDT Lc TRIPP CHEMISTRY ORDERABLES Performing Organization Address City/State/ZIP Code Phon e Number [address] Type and Screen Validity (05/15/2022 12:00 PM EDT) [facility] Method Time Signature T&S only valid [facility] at [facility] LABORATORY Comment: This Type and Screen result is only valid at the [facility] Specimen Anatomical Collection Method Collection Time Receive d Time (Source) Location / / Volume Laterality Blood 05/15/2022 12:00 05/15/2022 PM EDT 12:17 PM EDT Resulting Agency Comment Spec In Lab Lc TRIPP BLOOD BANK ORDERABLES Performing Organization Address City/State/ZIP Code Phon e Number [address] ABORH Recheck Status (05/15/2022 12:00 PM EDT) [facility] Method Time Signature ABORH Recheck Order Placed [facility] K Order [facility] LABORATORY ABORH Type Complete [facility] LABORATORY Specimen Anatomical Collection Method Collection Time Receive d Time (Source) Location / / Volume Laterality Blood 05/15/2022 12:00 05/15/2022 PM EDT 12:17 PM EDT Resulting Agency Comment Spec In Lab Lc TRIPP BLOOD BANK ORDERABLES Performing Organization Address City/State/ZIP Code Phon e Number [address] CK (05/15/2022 12:00 PM EDT) P athologist Signature CK, Total 87 0 - 200 [facility] unit/L [facility] LABORATORY Specimen Anatomical Collection Method Collection Time Receive d Time (Source) Location / / Volume Laterality Blood Venous Draw / 05/15/2022 12:00 05/15/2022 Unknown PM EDT 12:19 PM EDT Resulting Agency Comment Spec In Lab Fito Summers MD CHEMISTRY ORDERABLES Performing Organization Address City/[facility]/ZIP [place] [address] Antibody screen (05/15/2022 12:00 PM EDT) [facility] Method Time Signature Ab Screen Negative [facility] LABORATORY Expires at 05/18/2022 [facility] [id number] on: [facility] LABORATORY Specimen Anatomical Collection Method Collection Time Receive d Time (Source) Location / / Volume Laterality Blood 05/15/2022 12:00 05/15/2022 PM EDT 12:17 PM EDT Resulting Agency Comment Spec In Lab Lc TRIPP BLOOD BANK ORDERABLES Performing Organization Address City/[facility]/ZIP [place] [address] ABO/Rh Typing (05/15/2022 12:00 PM EDT) P athologist Signature ABORh Type O Pos [facility]ORY Specimen Anatomical Collection Method Collection Time Receive d Time (Source) Location / / Volume Laterality Blood 05/15/2022 12:00 05/15/2022 PM EDT 12:17 PM EDT Resulting Agency Comment Spec In Lab Lc TRIPP BLOOD BANK ORDERABLES Performing Organization Address City/[facility]/ZIP [place] [address] (ABNORMAL) Differential, Automated (05/15/2022 12:00 PM EDT) [facility] Method Time Signature Neutrophils % 79.4 % [facility] Neutr Abs (ANC) 7.49 (H) 1.70 - [facility] 6.10 [facility] x10(3)/[facility] L LABORATORY Lymphocytes % 11.3 % [facility] Lymphocytes Abs 1.1 0.9 - 3.2 [facility] x10(3)/[facility] LABORATORY Monocytes % 7.8 % [facility] Monocyte Abs 0.7 0.3 - 0.9 [facility] x10(3)/[facility] LABORATORY Eosinophils % 0.6 % [facility] Eosinophils Abs 0.1 0.0 - 0.4 [facility] x10(3)/[facility] LABORATORY Basophils % 0.6 % [facility] Basophils Abs 0.1 0.0 - 0.1 [facility] x10(3)/[facility] LABORATORY Immature Gran % 0.30 % [facility] Comment: Immature granulocytes(IG's)percentage an d absolute count will include metamyelocytes, myelocytes, and promyelo cytes. Blood smears from CBCs yielding IG's will be scanned manually for concor dance. If this scan disagrees with the automated IG or if promyelocytes are not ed, a manual differential will be performed. Rain Gran Abs 0.03 0.00 - 0.04 x10(3)/[facility] MAR Y [facility] LABORATORY Specimen Anatomical Collection Method Collection Time Receive d Time (Source) Location / / Volume Laterality Blood 05/15/2022 12:00 05/15/2022 PM EDT 12:19 PM EDT Resulting Agency Comment Spec In Lab Lc TRIPP HEMATOLOGY ORDERABLES Performing Organization Address City/State/[place] [address] (ABNORMAL) Hemogram (05/15/2022 12:00 PM EDT) Analysis Performed At Patho logist Time Signature WBC 9.4 4.0 - 9.5 [facility] x10(3)/[facility] LABORATORY RBC 4.48 (L) 4.58 - [facility] 5.54 [facility] x10(6)/[facility] LABORATORY Hemoglobin 14.5 13.7 - [facility] 16.5 g/dL [facility] LABORATORY Hematocrit 42.4 40.5 - [facility] 48.5 % [facility] LABORATORY MCV 94.6 (H) 82.9 - [facility] 93.1 [facility] LABORATORY MCH 32.4 (H) 27.5 - [facility] 32.1 pg [facility] LABORATORY MCHC 34.2 32.0 - [facility] 35.7 g/dL [facility] LABORATORY Platelets 209 145 - 357 [facility] x10(3)/[facility] LABORATORY RDWSD 45.9 (H) 36.0 - [facility] 45.0 [facility] LABORATORY RDWCV 13.1 11.4 - [facility] 13.8 % [facility] LABORATORY MPV 10.5 7.6 - 12.9 [facility] LABORATORY nRBC % Auto 0.0 % [facility] nRBC Abs Auto 0.000 0.000 - [facility] 0.000 [facility] x10(3)/[facility] LABORATORY Specimen Anatomical Collection Method Collection Time Receive d Time (Source) Location / / Volume Laterality Blood 05/15/2022 12:00 05/15/2022 PM EDT 12:19 PM EDT Resulting Agency Comment Spec In Lab Lc TRIPP HEMATOLOGY ORDERABLES Performing Organization Address City/State/[place] [address] (ABNORMAL) Basic Metabolic Panel (non-fasting) (05/15/2022 12:00 PM EDT) P athologist Signature Glucose Lvl 203 (H) 65 - 199 [facility] mg/dL [facility] LABORATORY Comment: Diabetes: >=200 mg/dL plus symp toms BUN 16 10 - 20 mg/dL [facility] Creatinine 0.84 0.80 - 1.50 mg/dL [facility] Sodium 141 135 - 145 mmol/L [facility] Potassium 4.7 3.5 - 5.0 mmol/L [facility] [...] mmol/L [facility] Anion Gap 11 5 - 15 mmol/L [facility] Calcium 8.5 8.5 - 10.5 mg/dL [facility] Estimated GFR 89 >=60 mL/min/1.73 m?? [facility] [...] Organization Address City/State/[place] [address] documented in this encounter [...] Units/hr (10 mL/hr), Intravenous, CONTINUOUS, Starting on 05/15/22 at 2345, Until Brandi 05/16/22 at 0759, [...] on Fri05/18/22 at 2100, Until Discontinued, Routine Given 05/20/2022 [...] Starting on Brandi 05/16/22 at 1249, Until Brandi 05/16/22 at 1115, for enhancement of sub-optimal echo images, Echo Lab (Intra-Procedure), Routine PHENobarbitaL (Luminal) (130 Given 05/16/2022 6:28 AM EDT 122.2 mg 11.3 mL/hr mg/mL) injection 122.2 mg 122.2 mg (rounded from 121.86 mg = 1.8 mg/kg/dose ? 67.7 kg [place] weight), Intravenous, at 11.3 mL/hr, EVERY 3 HOURS, 2 doses, First dose on Brandi 05/16/22 at 0245, Last dose on Brandi 05/16/22 at 0545, Administer as slow IV Push [...] mg = 2.4 mg/kg/dose ? 67.7 kg [place] weight), Intravenous, at 15 mL/hr, ONCE, 1 [...] mg = 0.24 mg/kg/dose ? 67.7 kg [place] weight), Oral, 2 TIMES DAILY, 2 doses, [...] mg = 0.48 mg/kg/dose ? 67.7 kg [place] weight), Oral, 2 TIMES DAILY, 2 doses, First dose on Brandi 05/16/22 at 0900, Last dose on Fri05/16/22 at [...] mg = 0.12 mg/kg/dose ? 67.7 kg [place] weight), Oral, 2 TIMES DAILY, 2 doses, [...] Oral, 2 TIMES DAILY, First dose on Brandi 05/16/22 at 2100, Until Discontinued, Routine Given 05/20/2022 [...] 0816 (Gi naveen - Provider: Etta Don, DION) 81 mg, Oral, DAILY, First dose on 10/31 at 0900, Until Discontinued, Recovery (Recovery-Hospital Unit), Routine clopidogreL (Plavix) tablet 75 mg 0816 (Given - Provider: Etta Don, DION) 75 mg, Oral, DAILY, First dose on 10/31 at 0900, Until Discontinued, Recovery (Recovery-Hospital Unit), Routine folic acid (Folvite) tablet 1,000 mcg 0838 (Given - Pr ovider: Caroline Zamora, DION) 0852 (Given - Provider: Barbie Joyce RN)1750 (JAN Hold - Provider: Admin Adt - Reason: Transfer to a Procedural area)1955 (JAN Unhold - Provider: Admin Adt) 0815 (Given - Provider: Etta contreras RN) 1,000 mcg, Oral, DAILY, First dose on u 05/16/22 at 0900, Until Discontinued, Routine metoprolol tartrate (Lopressor) tablet 12.5 mg (CANCEL ED) 0838 (Given - Provider: Caroline Zamora, RN)2008 (Given - Provider: Nuris Lester, RN) 0853 (Given - Provider: Barbie Joyce , RN)1750 (JAN Hold - Provider: Admin Adt [...] mg 113 (Given - Provider: Etta Don, DION) 12.5 mg, Oral, EVERY 6 HOURS SCHEDULED, First dose (after last modification) on Fri05/21/22 at 1200, Until Discontinued, Routine multivitamin with minerals (Thera M) tablet 1 tablet 0 838 (Given - Provider: Caroline Zamora RN) 0852 (Given - Provider: Barbie Joyce RN)1750 (JAN Hold - Provider: Admin Adt - Reason: Transfer to a Procedural area)1955 ([facility] Unhold - Provider: Admin Adt) 08 (Given - Provider: Etta contreras RN) 1 tablet, Oral, DAILY, First dose on Fri05/16/22 at 0900, Until Discontinued, Routine pantoprazole EC (Protonix) tablet 40 mg 40 mg, Oral, DAILY, First dose on Fri at 0900, Until Discontinued, DO NOT CRUSH OR OPEN, Routine polyethylene glycoL (Miralax) packet 17 g 0838 (Given - Provider: Caroline Zamora, DION)2099 (Not Given - Provider: Nuris Lester, DION - Reason: Patient/family refused) 09 (Not Given - Provider: Barbie joseph RN - Reason: NPO)1750 (MAR Hold - Provider: Admin Adt - Reason: Transfer to a Procedural area)1955 (MAR Unhold - Provider: Admin Adt)2131 (Given - [...] Routine thiamine (Vitamin B1) tablet 100 mg 08 (Given - Prov ider: Caroline Zamora RN) 0853 (Given - Provider: Barbie Joyce RN)1750 ([facility] Hold - Provider: Admin Adt - Reason: Transfer to a Procedural area)1955 ([facility] Unhold - Provider: Admin Adt) 0816 (Given - Provider: Etta contreras RN) 100 mg, Oral, DAILY, First dose on Brandi at 0900, Until Discontinued, Routine valsartan (Diovan) tablet 40 mg 0838 (Given - Provider : Caroline Zamora, DION)2008 (Given - Provider: Nuris Lester RN) 0853 (Given - Provider: Barbie Joyce RN)1750 ([facility] Hold - Provider: Admin Adt - Reason: Transfer to a Procedural area)1955 ([facility] Unhold - Provider: Admin Adt)2005 [...] 1600 (New Bag - Provider: Barbie Joyce RN)1750 ([facility] Hold - Provider: Admin Adt - Reason: Transfer to a Procedural area)1955 ([facility] Unhold - Provider: Admin Adt) [...] Reason: Transfer to a Procedural area)1955 ([facility] Unhold - Provider: Admin Adt) 650 mg, [...] bisacodyL (Dulcolax) suppository 10 mg 1 751 ([facility] Hold - Provider: Admin Adt - Reason: Transfer to a Procedural area)1955 ([facility] Unhold - Provider: Admin Adt) [...] (porcine) (1,000 units/mL) injection 0-8,000 Units 1750 ([facility] Hold - Provider: Admin Adt [...] (CANCELED) 172 (Given - Provider: Flavia Schuler, DION)1745 (Given - Provider: Negra Bailey RN) ONCE [...] 3 mL 1750 (JAN Hold - Provider: A korinin Adt [...] Unit), Routine metoprolol (LOPRESSOR) injection 5 mg 06 (Given - Pr ovider: Emily Sauceda RN) [...]
Routine documented in this encounter Care Teams Financial Compliance Officer Relationship Specialty Start Date End Date Bobby Das MD PCP - General 10/02/[address] [place] [address] [place] [phone] documented as of this encounter
--- OUTSIDE RECORDS SUMMARY | 2022-07-05 12:35 | XMS_ITS | Encounter Summary ---
:1940 Author Organization [facility] [place] [address] Care Team Providers Name Role Phone Bobby Das MD Primary Care Provider Encounter Details Date Type Department Care Team Description 05/24/2022 Telephone Cardiology at [facility] Kourtney Jimenez, RN [facility] [place] [address] Social History Tobacco Use Types Packs/Day [...] 08/08/2022 Office Visit Gastroenterology Negra Collins MD [facility] DR GASTROENTEROLOGY DEPT [place], [place] 0[address] (Wo rk) 09/05/2022 Appointment Cardiology Trinity Reid MD [facility] CARDIOLOGY [place], [place] [address] (Wo rk) 09/05/2022 Office Visit Cardiology Trinity Reid MD [facility] CARDIOLOGY [place], [place] [address] (Wo rk) documented as of this encounter Visit Diagnoses Not on filedocumented in this encounter Care Teams Furnace Repair Mechanic Relationship Specialty Start Date End Date Bobby Das MD PCP - General 10/02/[address] [place] [address] [place] [address] documented as of this encounter
--- OUTSIDE RECORDS SUMMARY | 2022-07-05 12:35 | XMS_ITS | Encounter Summary ---
:1940 [place] [address] Care Team Providers Name Role Phone Bobby Das MD Primary Care Provider Reason for Referral Diagnostic Test (Routine) - Closed Specialty Diagnoses / Procedures Referred By Contact Refer red To Contact Cardiology Diagnoses Paroxysmal atrial fibrillation Nasrin Parra PA [facility] Non-Inv Card Lab Procedures Ziopatch 48 Hrs-15 Days [facility] VASCULAR SURGERY [place], [place] [id number] [place] [phone] Fax: Referral ID Status Reason Start Date Expiration Date Visits V isits Requested Authorized [id number] Closed Specialty 05/21/2022 10/21/2022 1 1 Service Requested Reason for Visit Auth/Cert Specialty Diagnoses / Procedures Referred By Contact Refer red To Contact Diagnoses Limb ischemia LLE thrombus Fito Summers MD [facility] [place] [address] Referral ID Status Reason Start Date Expiration Date Visits Requ ested Visits Authorized [id number] 1 1 Encounter Details Date Type Department Care Team Description 05/21/2022 Hospital Encounter Non-Invasive Paroxysma l atrial [place] [address] Social History Tobacco Use Types Packs/Day [...] 04/12/20 21 (FLONASE) 50 mcg/actuation Nare route [place], Suspension daily as needed. fluorouraciL (EFUDEX) 5 [...] 08/08/2022 Office Visit Gastroenterology Negra Collins MD [facility] DR GASTROENTEROLOGY DEPT [place], [place] 0375 (Wo rk) 09/05/2022 Appointment Cardiology Trinity Reid MD [facility] CARDIOLOGY [place], [place] [address]375 (Wo rk) 09/05/2022 Office Visit Cardiology Trinity Reid MD [facility] CARDIOLOGY [place], [place] 0375 (Wo rk) documented as of [...] fibrillation documented in this encounter Care Teams Computer Console Operator Relationship Specialty Start Date End Date Bobby Das MD PCP - General 10/02/[address] [place] [address] [place] [phone] documented as of this encounter
--- OUTSIDE RECORDS SUMMARY | 2022-07-05 12:36 | XMS_ITS | Encounter Summary ---
:1940 Author Organization [facility] [place] [address] Care Team Providers Name Role Phone Bobby Das MD Primary Care Provider Reason for Referral Diagnostic Test (Routine) - Closed Specialty Diagnoses / Procedures Referred By Contact Refer red To Contact Radiology Diagnoses Compression fracture of T9 vertebra, initial encounter Alphonso Esquivel DO [facility] Interventionl Rad Procedures IR Vertebroplasty Thoracic [facility] [place] [address] [place] [address] Referral ID Status Reason Start Date Expiration Date Visits V isits Requested Authorized [id number] Closed Specialty 10/13/2020 04/13/2022 1 1 Service Requested Reason for Visit Diagnostic Test (Routine) - Closed Specialty Diagnoses / Procedures Referred By Contact Refer red To Contact Radiology Diagnoses Compression fracture of T9 vertebra, initial encounter Alphonso Esquivel DO [facility] Interventionl Rad Procedures IR Vertebroplasty Thoracic [facility] [place] [address] [place] [address] Referral ID Status Reason Start Date Expiration Date Visits V isits Requested Authorized [id number] Closed Specialty 10/13/2020 04/13/2022 1 1 Service Requested Encounter Details Date Type Department Care Team Description 10/25/2020 Hospital Encounter Radiology at [facility] Esquivel, Alphonso R, Compression fracture [facility] DO of T9 vertebra, [facility] initial encounter [place], [place] CENTER [address] DIAGNOSTIC [phone] [place] [address] Social History Tobacco Use Types Packs/Day Years [...] Vargas RN - 10/25/2020 9:13 AM EST [facility] Discharge Instructions for Vertebroplasty Your vertebroplasty was [...] is during regular office hours, please call [phone]. If it is after regular office hours, oron weekends or holidays, please call [phone] and ask to speak to the Family Assistant on callfor Interventional Radiology. XXX You have [...] of : 1940 AGE: 80 y.o. Address: [address] [place] [address] (home) Mobile: No relevant phone numbers on file. Referring Provider: Alphonso Esquivel REASON FOR VISIT: Order Questions Answers Where will study be performed? [facility] Radiology [120] Is the patient [...] Dr. Esquivel, NEURORADIOLOGY PRE-PROCEDURE NOTE Name: Etta aBh Date of : 1940 ?? Referring Physician: [...] 08/08/2022 Office Visit Gastroenterology Negra Collins MD [facility] GASTROENTEROLOGY DEPT [place], [place] [address] (Wo rk) 09/05/2022 Appointment Cardiology Trinity Reid MD [facility] CARDIOLOGY [place], [place] [address] (Wo rk) 09/05/2022 Office Visit Cardiology Trinity Reid MD [facility] CARDIOLOGY [place], [place] [address] (Wo rk) documented as of [...] thoracic back pain that began acutely in Septembe r during heavy lifting. He has failed [...] None RADIATION EXPOSURE: A-plane 419 mGy, B-p solan ??69 mGy. TECHNIQUE: Following discussion of the [...] made and a 13g a introducer needle (Zopa) was advanced through the right pedicle and t o the ??T9 vertebral body during an intermittent fluoroscopic guidance. The Zopa biopsy cannula was advanced through the introducer [...] was made and a 13ga introducer needle (Sunshine Heart) was advanced through the left pedicle and [...] the interservice administration of fentanyl and Versed [facility] continuous monitoring of blood pressure, oxygenation and pulse rate. I have personally reviewed the image(s) and the resident's interpretation and agree with the findings, Matt Valverde at 10/25/2020 11:02 AM Thank you for letting us participate in the care of this patient. For questions regarding this report, please contact e number below. ? Electronically signed by: Matt Valverde [facility] ([phone]), at 10/25/2020 11:02 AM Procedure Note Matt Valverde MD - 10/25/2020Formatti ng of this note might be different from the original. EXAMINATION: IR VERTEBROPLASTY THORACIC SINGLE LEVEL CLINICAL HISTORY: 80 y.o.?male, with per sistent (5-7 out of 10) mid thoracic back pain that began acutely in during heavy lifting. He has failed conservative [...] made and a 13g a introducer needle (Zopa) was advanced through the right pedicle and t o the T9 vertebral body during an intermittent fluoroscopic guidance. The [place] biopsy cannula was advanced through the introducer [...] was made and a 13ga introducer needle (Sunshine Heart) was advanced through the left pedicle and [...] Electronically signed by: Matt Valverde [facility] ([phone]), at 10/25/2020 11:02 AM Alphonso Esquivel DO G IR ORDERABLES Surgical Pathology Report (10/25/2020 8:26 AM EST) Component Value Ref Test Analysis Performed At [facility] Method Time Signature Surgical [id number] ? Location: [address] [place] [address] Pathology [place] Report The signing pathologist has (i) examined the relevant preparation(s) for the [facility] specimen(s) and (ii) rendered or confirmed the diagnosis(es) . HOSPITAL [facility] . 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 lymphoplasmacytic infiltrate, see discussion Electronically signed by: ??Galo Enamorado MD Verified: ??10/27/2020 ?Dermatopathologist, Bone & Soft Tissue Pathologist Performed at: ??-[facility] Dept. of Pathology, [place], [place] DISCUSSION I see no neoplastic process [...] DO PATHOLOGY/CYTOLOGY ORDERABLE S Performing Organization Address City/[facility]/[place]IP [place] [address] Specimen to Pathology (10/25/2020 8:26 AM EST) Specimen Anatomical Collection Method Collection Time Receive d Time (Source) Location / / Volume Laterality AP Specimen 10/25/2020 8:26 AM 0 8:26 EST AM EST Narrative [facility] - 10/25/2020 8:26 AM EST Specimen requisition ordered. ??Separate Pathology report to follow Alphonso Esquivel DO PATHOLOGY/CYTOLOGY ORDERABLE S Performing Organization Address City/[facility] Code Phon e Number [address] documented in this encounter Visit [...] Procedure) documented in this encounter Care Teams Gambling Broker Relationship Specialty Start Date End Date Bobby Das MD PCP - General 10/02/[address] [place] [address] [place] [address] documented as of this encounter
--- OUTSIDE RECORDS SUMMARY | 2022-07-05 12:36 | XMS_ITS | Encounter Summary ---
:1940 Author Organization [facility] Address [facility] [place] [address] Care Team Providers Name Role Phone Bobby Das MD Primary Care Provider Reason for Visit - Closed Specialty Diagnoses / Procedures Referred By Contact Refer red To Contact Procedures Bobby Das MD Film Library- Storage Only DX [address] [place] [phone] Referral ID Status Reason Start Date Expiration Date Visits Requ ested Visits Authorized [id number] Closed 04/13/2021 04/13/2022 1 1 Encounter Details Date Type Department Care Team Description 01/31/2021 Ancillary Procedure Radiology Library at Bobby Almaguer MD [address] [phone] (Rebekah rojas) Social History Tobacco Use Types [...] 08/08/2022 Office Visit Gastroenterology Negra Collins MD [facility] DR GASTROENTEROLOGY DEPT [place], [place] 0[address] (Wo rk) 09/05/2022 Appointment Cardiology Trinity Reid MD [facility] CARDIOLOGY [place] [address] (Wo rk) 09/05/2022 Office Visit Cardiology Trinity Reid MD [facility] CARDIOLOGY [place] [address] (Wo rk) documented as of this [...] Organization Address City/State/ZIP Code Phon e Number [place], [place] documented in this encounter Visit Diagnoses Not on filedocumented in this encounter Care Teams Health Care Assistant Relationship Specialty Start Date End Date Bobby Das MD PCP - General 10/02/[address] [place] [address] [place] [phone] documented as of this encounter
--- OUTSIDE RECORDS SUMMARY | 2022-07-05 12:36 | XMS_ITS | Encounter Summary ---
:1940 [place] [address] Care Team Providers Name Role Phone Bobby Das MD Primary Care Provider Reason for Visit Reason Comments Left Leg Pain Auth/Cert Specialty Diagnoses / Procedures Referred By Contact Refer red To Contact Diagnoses Limb ischemia LLE thrombus Fito Summers MD [facility] [place] [address] Referral ID Status Reason Start Date Expiration Date Visits Requ ested Visits Authorized [id number] 1 1 Encounter Details Date Type Department Care Team Description 05/20/2022 Surgery Body Team Member Abundio Mcguire , CARDIAC CATHETERIZATION [facility] [place] [address] CARDIOLOGY [phone] [place], [place] [address] (Wo rk) Social History [...] Afib who presents in transfer from [facility] with acute limb ischemia of [...] emergently went to the OR for L CASINO CAGE CASHIER transverse arteriotomy and primary repair, thromboembolectomy of L SFA/PFA/CASINO CAGE CASHIER, reperfusion venous drainage for 250 cc, and [...] Discharge Condition: Good Discharge to: Home with [address] [address] Future Appointments and Orders Future Appointments and Orders Future Appointments Provider Department Dept Phone 05/23/2022 10:30 AM Loretta Cohen MD Dermatology at [facility] Arrive at: Trackmobile Operator [address] [place] [address] 06/07/2022 1:30 PM Gail Rae APRN Vascular Surgery at [facility] Arrive at: Trackmobile Operator [address] [phone] 06/13/2022 7:30 AM Edson Lagos [place] Vascular Lab at [facility] Arrive at: Trackmobile Operator Area 06/13/2022 8:00 AM Fito Summers MD Vascular Surgery at [facility] Arrive at: Trackmobile Operator Area 3V [phone] 06/13/2022 10:00 AM Alan Reid MD Cardiology at [facility] Arrive at: Trackmobile Operator Area [phone] Future Orders Complete By Expires Ziopatch 48 Hrs-15 Days [[id number] CPT(R)] 05/21/2022 11/20/2022 Process Instructions: Scheduling Instructions: Comments: Questions: Does the patient have a pacemaker? If yes provide HI/LO settings: Apply for 7 or 14 days?: 7 Where will study be performed?: [facility] Clinics JOSSELYN, legs, multiple levels [VAS8 Custom] 06/21/2022 (Approximate) 12/21/2022 Process Instructions: There is no in-house vascular earthmoving labourer available on weeknights (5pm-8am), weekends, or holidays. IF THIS IS A REQUEST FOR AN EMERGENT STUDY DURING THOSE HOURS, please have the senior provider responsible for the patient page the Vascular Surgery Fellow/Senior Resident secretary board of commissioners to discuss options. Scheduling Instructions: Questions: Indication for study/signs & symptoms: ALI s/p L fem cutdown with thromboembolectomy Question to be answered: Perfusion to feet? Please check toe pressure Preferred location?: [facility] Clinics Referral to Cardiology [...] Koko Zamora for admission to Home Health. [address] [place] [phone] (home) Date of : 1940 Inpatient DOCUMENTATION FOR VNA SERVICES (INCLUDING THOSE PATIENTS WITH MEDICARE COVERAGE REQUIRING HOME VNA SERVICES AND/OR HOSPICE SERVICES) PATIENT'S LOCATION: Koko Zamora [address] [place] [phone] (home) Cell: No relevant phone numbers on file. Production Support Developer's Name: Koko In discussion with the attending physician, it is certified that this patient is under their care and that they, or a Nurse Practitioner,Clinical Nurse specialist or Physician Xerox Machine Operator who is working directly with them, [...] for managing ADL's. HOME HEALTH CARE AGENCY: [facility]. [address] [place] [address] Start of care: Within 24 to 48 [...] obtained from this patient'sPCP: Bobby Das MD [address] [place] [address] [place] [address] All VNA agencies which cover the [...] For any problems or questions please call [phone] For issues on weeknights after 5pm and weekends please call [phone] and ask for the Vascular Fellow secretary board of commissioners. JOSEE Santiago Vascular Surgery 05/21/2022 documented in [...] For any problems or questions please call [phone] For issues on weeknights after 5pm and weekends please call [phone] and ask for the Vascular Fellow secretary board of commissioners. documented in this encounter Medications at Time [...] 04/12/20 21 (FLONASE) 50 mcg/actuation Nare route Ariel, Suspension daily as needed. fluorouraciL (EFUDEX) 5 [...] Afib who presents in transfer from [facility] with acute limb ischemia of [...] status, full code. JOSEE Santiago 05/21/2022 Pager: [phone] Brannon Isaacs, PT - 05/21/2022 10:35 AM [...] plan as stated. Time IN / OUT: 1430-6540 Total Minutes, Physical Therapy: 25 Billing Code: 2 BOSTON Isaacs DPT Pager: [phone] Physical Therapy Inpatient Rehabilitation Department Wellington Jean MD - 05/21/2022 10:16 AM EDT Images from the original note were not included. Brief Cardiology Consult: Koko Zamroa is a 81 y.o. gentleman with a [...] from 05/15/2022 in Intermediate Cardiac Care Unit [facility] Office Visit from 04/17/2021 in Pain and Spine Center at [facility] Weight 79.8 kg (175 [...] and plan of care per Dr. Mcnamara (combination welder apprentice). Please refer to her note above for [...] to Hosp-Admission (Current) from 05/15/2022 in 4 [facility] Office Visit from 04/17/2021 in Pain and Spine Center at [facility] Weight 79.8 kg (175 [...] findings andplan of care per Dr. Mcnamara (combination welder apprentice). Please refer to her note above for [...] a mitral repair in 2000 (not at [facility]) with no CAD at [...] AF and the first documented HR at [facility] was 125 bpm (presented [...] Afib who presents in transfer from [facility] with acute limb ischemia of [...] management following Dottie Hill APRN 05/20/2022 Pager: [phone] Laney Atkins RN - 05/20/2022 1:14 AM EDT Pt Koko transferred to room from [facility]. A&Ox4, oriented to room and call boo. Masimo and telemetry placed. In agreement with assessment as documented this evening by Nuris ASHLEY. No complaints at this time. Pt aware of NPO status and plan for cardiac cath in AM. Urinal provided. Resting comfortably in bed. Nuris Lester RN - 05/20/2022 1:09 AM EDT Pt. Transferred to [facility]. RN accompanied patient to floor and handed off to [facility] RN Dottie Hill APRN - 05/19/2022 10:02 AM EDT Vascular Surgery Progress Note Koko Zamora is a 81 y.o. male with w new onset Afib who presents in transfer from [facility] with acute limb ischemia of [...] management following Dottie Hill APRN 05/19/2022 Pager: [phone] Emily Sauceda RN - 05/19/2022 6:28 AM EDT OUTCOME EVALUATION NOTE: OUTCOME SUMMARY: Patient AOx4, VSS on RA. Afib on tele. HR controlled w/ PRN metop, given x2. Denies CP, SOB, n/v. See flowsheets for NVC. Dressings to LLE CDI, prevena WV to groin intact. Voiding to urinal. LBM DIRECTOR INFORMATION SECURITY, patient stating he will maybe try the [...] adequately without difficulty to bedside urinal. LBM DIRECTOR INFORMATION SECURITY. Up to chair this AM with nursing staff. Worked with PT, tolerated well. Diet changed to regular at 1800.Plan is for cardiac cath on Friday. PLAN MOVING FORWARD: Bleeding precautions Pain management neurovascular checks PT/OT laborer fryer farm INDIVIDUALIZED FALL PREVENTION INTERVENTIONS: Patient-specific fall risk [...] Afib who presents in transfer from [facility] with acute limb ischemia of [...] mL Intravenous BID ??? PHENobarbitaL 0.12 mg/kg/dose (Strawberry) Oral BID ??? thiamine 100 mg Oral [...] management following Dottie Hill APRN 05/18/2022 Pager: [phone] Brannon Isaacs, PT - 05/18/2022 10:00 AM [...] IR Biopsy Spine 07/20/2019 Bobby Marshall MD [facility] INTERVENTIONL RAD ??? IR VERTEBROPLASTY LUMBAR MULTIPLE LEVELS 07/20/2019 IR Vertebroplasty Lumbar Multiple Levels 07/20/2019 Bobby Marshall MD [facility] INTERVENTIONL RAD ??? IR VERTEBROPLASTY THORACIC SINGLE LEVEL 10/25/2020 IR Vertebroplasty Thoracic Single Level 10/25/2020 Matt Chisholm MD [facility] INTERVENTIONL RAD ??? PRO EMBLC/THRMBC FEMORAL POPLITEAL AORTO-ILIAC ARTERY Left 05/15/2022 EMBOLECTOMY OR THROMBECTOMY, FEMOROPOPLITEAL, AORTOILIAC ARTERY BY LEG INCISION (WRVU 19.48) performed by Fito Summers MD at [facility] MAIN OR Social History: Pt lives [...] in this evaluation. Time IN / OUT: 2404-6113 Total Minutes, Physical Therapy: 30 Billing Code: Basilio Isaacs, PT Pager: [phone] Physical Therapy Inpatient Rehabilitation Department Emily Sauceda RN - 05/18/2022 4:34 AM EDT OUTCOME EVALUATION NOTE: OUTCOME SUMMARY: Patient AOx4, VSS on 2LNC. Afib on tele. HR above 120, MD aware, PRN IV metop given x1, HR returned to 90's-low 100's. Denies CP, SOB, n/v. See flowsheets for NVC. Dressings to LLE CDI, prevena WV to groin intact. Voiding to urinal. LBM DIRECTOR INFORMATION SECURITY. Heparin gtt therapeutic. Pain controlled. Patient sleeping [...] adequately without difficulty to bedside urinal. LBM DIRECTOR INFORMATION SECURITY. Patient not OOB this shift. Currently NPO awaitingprocedure in cardiac cath tech. PLAN MOVING FORWARD: Bleeding precautions Pain management neurovascular checks PT/OT NPO for cardiac cath tech INDIVIDUALIZED FALL PREVENTION INTERVENTIONS: Patient-specific fall [...] Emergency Department as a transfer from [facility] with left lower extremity limb ischemia. He went to [facility] and was startedon heparin and transferred to [facility] for evaluation by vascular surgery [...] will be going to the cardiac cath tech for evaluation. Will defer PT eval at present but will see as ordered post cardiac catheritizaton. Social Hx:Pt lives with his Ursula in [place], [place] in a 2 level home in [...] WBAT LLE LISBET HERMAN PT Pager # [phone] In-Pt Rehab Medicine Dottie Hill APRN - 05/17/2022 7:42 AM EDT Vascular Surgery Progress Note Koko Zamora is a 81 y.o. male with w new onset Afib who presents in transfer from [facility] with acute limb ischemia of [...] mL Intravenous BID ??? PHENobarbitaL 0.24 mg/kg/dose (Strawberry) Oral BID Followed by ??? [START ON 05/18/2022] PHENobarbitaL 0.12 mg/kg/dose (Strawberry) Oral BID ??? thiamine 100 mg Oral [...] management following Dottie Hill APRN 05/17/2022 Pager: [phone] Sary Dos Santos, RN - 05/17/2022 12:16 [...] Afib who presents in transfer from [facility] with acute limb ischemia of [...] mL Intravenous BID ??? PHENobarbitaL 0.48 mg/kg/dose (Strawberry) Oral BID Followed by ??? [START ON 05/17/2022] PHENobarbitaL 0.24 mg/kg/dose (Strawberry) Oral BID Followed by ??? [START ON 05/18/2022] PHENobarbitaL 0.12 mg/kg/dose (Strawberry) Oral BID ??? thiamine 100 mg Oral [...] management following Edward Rodríguez MD 05/16/2022 Pager: [phone] Sary Dos Santos RN - 05/16/2022 12:52 [...] met 2129 Hand off to DION Ramirez [place] documented in this encounter H&P Notes Kerry [...] Afib who presents in transfer from [facility] with acute limb ischemia of [...] IR Biopsy Spine 07/20/2019 Bobby Marshall MD [facility] INTERVENTIONL RAD ??? IR VERTEBROPLASTY LUMBAR MULTIPLE LEVELS 07/20/2019 IR Vertebroplasty Lumbar Multiple Levels 07/20/2019 Bobby Marshall MD [facility] INTERVENTIONL RAD ??? IR VERTEBROPLASTY THORACIC SINGLE LEVEL 10/25/2020 IR Vertebroplasty Thoracic Single Level 10/25/2020 Matt Chisholm MD [facility] INTERVENTIONL RAD Social Hx: Social History [...] Refill ??? fluticasone propionate (FLONASE) 50 mcg/actuation Ariel, Suspension as needed. ??? fluorouraciL (EFUDEX) 5 [...] and consented. Tim Chicas MD 05/15/2022 Pager: [phone] documented in this encounter ED Notes Lc Harris PA - 05/15/2022 1:20 PM EDT ED Provider Note HPI: Koko Zamora is a 81 y.o. male with history of atrial fibrillation not on anticoagulation, and GI bleeding who presents to the Emergency Department as a transfer from [facility] with left lower extremity limb ischemia. Patient says that the symptoms started roughly 630 this morning when he developed severe pain in his left lower extremity. He went to [facility] and was started on heparin and transferred to [facility] for evaluation by vascular surgery. [...] lower extremity earlier today and went to [facility] where it was determined that he had ischemia of the left lower extremity. Vascular surgery [facility] was contacted and he was transferred [...] orders before pt. Arrival. Pt. Arrived at [facility] by EMS at 1150, [...] in an outpatient cardiac rehabilitation program at [facility] was discussed. Patient agrees to a referral to this program. Timing will depend on his recovery from Vascular surgery. He is going home w/VNA PT. I gave him the brochure for the program at [facility] for future reference. Care Management [...] information for follow-up Home Health & Hospice, [place] [address] [place] [address] Transportation: family or friend will provide Functional [...] Type: *No Product type* / Secondary Insurance: [facility] Prescription Coverage: Yes This plan was formulated with input from patient and team. All are in agreement with plan. IP RS has communicated with [facility] - for initial IMM. Shawn López RN (Jonas) RN/CM - Cellphone: [phone] Pager: [phone] Covering Service RN/CM Plan of Care - [...] catheterization, transferred in hospital bed accompanied by Body Team Member RN, remains on telemetry monitoring. Heparin gtt [...] Type: *No Product type* / Secondary Insurance: [facility] Last Physical Therapy Recommendation: home with home health, home with supervision with None Last Occupational Therapy Recommendation: with Plan for discharge is: Home w/ Services Outpatient Agency/Support Group Needs: None Home Health Services: Registered Nurse, Physical Therapy, Occupational Therapy Agency Referrals: I have met with the patient to: ?? discuss discharge planning needs. ?? provide the [facility], Office of Care Management letter from the [employer] pertaining to rehab referrals. ?? provide a letter describing our affiliations within the [facility] and educate about their right to choose where referrals are sent. ?? provide a list of Home Health Agencies / Durable Medical Equipment vendors which serve their preferred geographic area. ?? provided patient with [facility] Star Quality Rating handout. They have requested referrals to: [facility] [address]. [address] [place] [address] Note routed to a Typesetters Printer who will communicate referrals to facilities and provide any required information. Transportation: family or friend will provide Barriers to discharge: None Plan going forward: Patient is going for a cardiac cath today and plan will come from there. Patientwas recently seen by PT and they recommend VNA at time of discharge. Dawson was routed and pendedat this time. Care Management will continue to follow and assist with discharge planning and coordination of care as indicated. Anticipated Date of Discharge: 05/21/2022 Nataly RICHMOND RN Phone: [phone] Pager: [phone] Plan of Care - Laney Atkins RN [...] from the original note were not included. [facility] [place] [address] [phone] INPATIENT CARDIOLOGY CONSULT NOTE Date of Consultation: 05/17/2022 Admit Date: 05/15/2022 Hospital Day 2 days Reason for Consult: New afib Active Problems: Active Hospital Problems Diagnosis Limb ischemia Resolved Hospital Problems No resolved problems to display. HPI: Koko Zamora is a 81 y.o. male with a PMHx significant for MVP (s/p MV repair 2000), tobacco use, HLD, who presented to [facility] from OSH on 05/15 with acute limb ischemia of LLE and was found to be in atrial fibrillation. Patient had sudden onset LLE pain on 05/15 and presented to [facility], where he was started on heparin and transferred to [facility]. Upon arrival to [facility], patient was in atrial [...] IR Biopsy Spine 07/20/2019 Bobby Marshall MD [facility] INTERVENTIONL RAD IR VERTEBROPLASTY LUMBAR MULTIPLE LEVELS 07/20/2019 IR Vertebroplasty Lumbar Multiple Levels 07/20/2019 Bobby Marshall MD [facility] INTERVENTIONL RAD IR VERTEBROPLASTY THORACIC SINGLE LEVEL 10/25/2020 IR Vertebroplasty Thoracic Single Level 10/25/2020 Matt Chisholm MD [facility] INTERVENTIONL RAD PRO EMBLC/THRMBC FEMORAL POPLITEAL AORTO-ILIAC ARTERY Left 05/15/2022 EMBOLECTOMY OR THROMBECTOMY, FEMOROPOPLITEAL, AORTOILIAC ARTERY BY LEG INCISION (WRVU 19.48) performed by Fito Summers MD at [facility] MAIN OR Allergies Allergen Reactions Aspirin Other (See Comments) GI bleed Out-Patient Medications: Medications Prior to Admission Medication Sig Dispense Refill Last Dose fluorouraciL (EFUDEX) 5 % Cream daily. CRESTOR 40 mg Tablet Take 40 mg by mouth daily. fluticasone propionate (FLONASE) 50 mcg/actuation Ariel, Suspension as needed. ascorbic acid, vitamin C, [...] 5 mL Intravenous BID PHENobarbitaL 0.24 mg/kg/dose (Strawberry) Oral BID Followed by [START ON 05/18/2022] PHENobarbitaL 0.12 mg/kg/dose (Strawberry) Oral BID thiamine 100 mg Oral Daily folic acid 1,000 mcg Oral Daily multivitamin with minerals 1 tablet Oral Daily heparin (porcine) infusion 1,200 Units/hr (05/17/22 8544) Family History: No family history on file. [...] ED to Hosp-Admission (Current) from 05/15/[address] [place] [address] Office Visit from 04/17/2021 in Pain and Spine Center at [facility] Weight 79.8 kg (175 [...] continue to follow Anne-Marie Larson MD Pager [phone] Clinic: [phone] 05/17/22 6:22 PM Initial Assessments - Ifrah [...] spouse would be surrogate decision maker per [place] surrogate decision making law. (Only good for 180 days) Any patient receiving care at [facility] must abide by [place] law. The hierarchy [...] (i) The agent with financial power of tax associate attorney or a conservator appointed in accordance [...] raised toilet seat Home Address confirmed as: [address] [place] [phone] Social & Family Supports: All names listed below confirmed with patient as Incorrect. Will notify toni to correct. Wifes address is same as and phone is [phone]. Extended Emergency Contact Information Primary Emergency Contact: Ursula Zamora Address: [address] [place] [address] [address] [place] [address] [facility] Relation: Spouse Current Care Provided by: [...] Type: *No Product type* / Secondary Insurance: [facility] Prescription Coverage: Yes Preferred Pharmacy: [id number] - [place], [place] - [address] [facility] [address] [place] [address] [facility] - [place], [place] - [address] [facility] [address] [facility] [address] [place] Status: Patient is a : unable to assess Primary Care Provider: Bobby Das MD [phone] Patient/Caregiver Goals of Treatment: to walk again Potential Needs for Transition of Care: none noted per 05/16 IDR Transportation: family will provide Transportation Anticipated: family or friend will provide Concerns to be Addressed: no discharge needs identified Assessment: Patient is admitted to vascular surg service for left lower extremity limb ischemia Plan: Per PT OT recommendations . Has used [employer] in the past. A member of the Care Management team will continue to monitor progress, follow for continuity of care and assist with transition of care planning. Ifrah Bell RN BSN Unit ControllerPetroleum Engineer of Care Management Pager [phone] Brief Op Note - Erin Garza MD - 05/15/2022 5:04 PM EDT Brief Operative Note Patient Name: Koko Zamora : [id number] MR#: [id number] Case Date: 05/15/2022 Surgeon: Surgeon(s) and Role: [...] Garza MD - 05/15/2022 2:08 PM EDT [facility] Operative Note Patient Name: Koko Zamora : [id number] MR#: [id number] Case Date: 05/15/2022 Surgeon: Surgeon(s) and Role: [...] Office Visit Gastroenterology Negra Collins MD [facility] DR GASTROENTEROLOGY DEPT [place], [place] [address] (Wo rk) 09/05/2022 Appointment Cardiology Trinity Reid MD [facility] CARDIOLOGY [place], [place] [address] (Wo rk) 09/05/2022 Office Visit Cardiology Trinity Reid MD [facility] CARDIOLOGY [place], [place] [address] (Wo rk) Scheduled Referrals [...] Component Value Ref Test Analysis Performed At [facility] Range Method Time Signature VB Text Department: Vascular Surgery Lab VASCUBASE Report Patient: [id number] (KOKO ZAMORA) CPT: 64993 Referring Physician: FITO SUMMERS ?? Phone: Indications: s/p L CASINO CAGE CASHIER endart. Diabetes mellitus: no Findings: Right ?Pressure [...] P athologist Signature Heparin UFH 0.42 IU/mL [facility] LABORATORY Comment: Heparin (anti-Xa) levels should [...] Organization Address City/State/ZIP Code Phon e Number [place] [id number] LAB[address] Differential, Automated (05/21/2022 6:15 AM EDT) P athologist Signature Neutrophils % 58.8 % [facility] LABORATORY Neutr Abs (ANC) 3.97 1.70 - [facility] 6.10 [facility] x10(3)/[facility] LABORATORY Lymphocytes % 25.2 % [facility] LABORATORY Lymphocytes Abs 1.7 0.9 - 3.2 [facility] x10(3)/[facility] LABORATORY Monocytes % 12.9 % [facility] LABORATORY Monocyte Abs 0.9 0.3 - 0.9 [facility] x10(3)/[facility] LABORATORY Eosinophils % 2.1 % [facility] LABORATORY Eosinophils Abs 0.1 0.0 - 0.4 [facility] x10(3)/[facility] LABORATORY Basophils % 0.4 % [facility] LABORATORY Basophils Abs 0.0 0.0 - 0.1 [facility] x10(3)/[facility] LABORATORY Immature Gran % 0.60 % [facility] LABORATORY Comment: Immature granulocytes(IG's)percentage an d absolute count will include metamyelocytes, myelocytes, and promyelo cytes. Blood smears from CBCs yielding IG's will be scanned manually for concor dance. If this scan disagrees with the automated IG or if promyelocytes are not ed, a manual differential will be performed. Rain Gran Abs 0.04 0.00 - 0.04 x10(3)/[facility] LABORATORY Specimen Anatomical Collection Method Collection Time Receive d Time (Source) Location / / Volume Laterality Blood 05/21/2022 6:15 AM 2 6:38 EDT AM EDT Resulting Agency Comment Spec In Lab Edward Rodríguez MD HEMATOLOGY ORDERABLES Performing Organization Address City/State/[place] [address] (ABNORMAL) Hemogram (05/21/2022 6:15 AM EDT) [facility] gist Method Time Signature WBC 6.8 4.0 - 9.5 [facility] x10(3)/[facility] [facility] LABORATORY RBC 3.59 (L) 4.58 [facility] 5.54 [facility] x10(6)/[facility] LABORATORY Hemoglobin 11.8 (L) 13.7 - [facility] 16.5 g/dL [facility] LABORATORY Hematocrit 34.5 (L) 40.5 - [facility] 48.5 % [facility] LABORATORY MCV 96.1 (H) 82.9 - [facility] 93.1 [facility] LABORATORY MCH 32.9 (H) 27.5 - [facility] 32.1 pg [facility] LABORATORY MCHC 34.2 32.0 [facility] g/dL [facility] LABORATORY Platelets 198 145 - 357 [facility] x10(3)/[facility] LABORATORY RDWSD 44.9 36.[address] [facility] 45.0 [facility] LABORATORY RDWCV 12.6 11.[address] [facility] 13.8 % [facility] LABORATORY MPV 10.0 7.6 - 12.9 [facility] LABORATORY nRBC % Auto 0.3 % [facility] LABORATORY nRBC Abs Auto 0.020 (H) 0.000 [facility] x10(3)/[facility] LABORATORY Specimen Anatomical Collection Method Collection Time Receive d Time (Source) Location / / Volume Laterality Blood 05/21/2022 6:15 AM 2 6:38 EDT AM EDT Resulting Agency Comment Spec In Lab Edward Rodríguez MD HEMATOLOGY ORDERABLES Performing Organization Address City/State/ZIP [place] [address] EKG 12 Lead (05/20/2022 7:04 PM EDT) Component Value Ref Range Test Analysis Performed Pathologis t Method Time At Signature Ventricular rate 101 BPM MUSE SYSTEM QRS Duration 116 ms MUSE SYSTEM Q-T Interval 378 ms MUSE SYSTEM QTC Calculated 490 ms MUSE SYSTEM (Bezet) Calculated R Shaw[place] -53 degrees MUSE SYSTEM Calculated T [place] 101 degrees MUSE SYSTEM INTERPRETATION Atrial fibrillation [...] SYSTEM - 05/20/2022 7:09 PM ED T ?[facility] ? Cardiac Cathete rization/Intervention Report ? Patient Name: Sera Koko Sullivan. ? Procedure Date: 05/20/2022 ? A #: [id number] ? Primary Physician: Abundio Servin ? Case #: [id number] ? File Name: [id number] ? Catheterization Order Number: [id number] ? [facility] ? Final Report [place], [place] ? Patient Name: ? Koko J. Klarissa uson ? ID#: ?[id number] ? : ?1940 ? Procedure Date: ? May 20, 2022 ?Case #: ? [id number] ? Room: ? 1 ? Case Physician: ? Abundio Brady n, M.D. ? Start: ?17:16 ? Admission: ??05/15/2022 ? Referring Physician: ??Sam Hernandez PAlmitaA. ? Procedures: ?* Coronary Angiography ?* Left [...] Urgent. The indication for ?the cardiac cath tech visit is cardiomyo nita. Chest pain symptom [...] ?3.5 guiding catheter and a 3.5 Fr [facility] [place] [address] ??20 Mhz. ??Imaging ?was successful. ??Image [...] premounted 2. 75 x 30 mm Rudy [place] (AMPARO) was deployed ? with a maximum [...] ?modification of this regimen. C onsult [facility] Interventional Cardiology for ?questions. ?The 1 year [...] coronary, angioplasty-coronary and stent ?insertion-coronary. ? Abundio Metcalf Malathi, M.D. ? Electronically Signed by: Abundio De León in, M.D. ? Report Finalized: 05/20/2022 ??19:01 ? bAundio Servin MD CARDIAC CATH ORDERABLES Performing Organization Address City/State/ZIP Code Phon e Number CARDIOMAC SYSTEM POCT Glucose (05/20/2022 5:42 PM EDT) P athologist Signature POC Glucose 123 65 - 199 [facility] [place] mg/dL [facility] LABORATORY Comment: Supplemental ranges: <140 mg/dL before meals <180 mg/dL all other times of the day Specimen Anatomical Collection Method Collection Time Receive d Time (Source) Location / / Volume Laterality Blood 05/20/2022 5:42 PM 5:42 EDT PM EDT Fito Summers MD POINT OF CARE TEST ORDERABLE S Performing Organization Address City/[facility] [address]/[place] [address] (ABNORMAL) BMP w/fasting Glucose (05/20/2022 10:50 AM EDT) P athologist Signature Glucose 152 (H) 65 - 99 [facility] Fasting mg/dL [facility] LABORATORY Comment: ?Fasting* Glucose Interpretive C riteria [...] of Diabetes Mellitus, Position Statement from the [employer]. ??Diabete s Care, Volume 33, Supplement 1, Nov 2009 BUN 11 10 - 20 mg/dL [facility] LABORATORY Creatinine 0.63 (L) 0.80 - 1.50 mg/dL [facility] LABORATORY Sodium 137 135 - 145 mmol/L [facility] LABORATORY Potassium 3.6 3.5 - 5.0 mmol/L [facility] LABORATORY Comment: Please note: ??Patients with WBC >100,00 0 may have falsely elevated Potassium levels. ??For accurate Potassium quantif ication in these patients send serum separator tube (gold top) for subsequent determinations. ??Contact the Clinical Chemistry Laboratory if there are any qu estions. Chloride 103 98 - 107 mmol/L [facility] LABORATORY CO2 24 22 - 31 mmol/L [facility] LABORATORY Anion Gap 10 5 - 15 mmol/L [facility] LABORATORY Calcium 8.7 8.5 - 10.5 mg/dL [facility] LABORATORY Estimated GFR 97 >=60 mL/min/1.73 m?? [facility] LABORATORY Comment: This patient's estimated GFR [...] Organization Address City/State/[place] [address] Heparin (unfractionated) Level (05/20/2022 5:02 AM EDT) P athologist Signature Heparin UFH 0.57 IU/mL [facility] LABORATORY Comment: Heparin (anti-Xa) levels should [...] Organization Address City/State/ZIP [place] [address] (ABNORMAL) Differential, Automated (05/20/2022 5:02 AM EDT) [facility] gist Method Time Signature Neutrophils % 58.1 % [facility] LABORATORY Neutr Abs (ANC) 4.52 1.70 - [facility] 6.10 [facility] x10(3)/[facility] LABORATORY Lymphocytes % 24.1 % [facility] LABORATORY Lymphocytes Abs 1.9 0.9 - 3.2 [facility] x10(3)/[facility] LABORATORY Monocytes % 13.8 % [facility] LABORATORY Monocyte Abs 1.1 (H) 0.3 - 0.9 [facility] x10(3)/[facility] LABORATORY Eosinophils % 2.6 % [facility] LABORATORY Eosinophils Abs 0.2 0.0 - 0.4 [facility] x10(3)/[facility] LABORATORY Basophils % 0.8 % [facility] LABORATORY Basophils Abs 0.1 0.0 - 0.1 [facility] x10(3)/[facility] LABORATORY Immature Gran % 0.60 % [facility] LABORATORY Comment: Immature granulocytes(IG's)percentage an d absolute count will include metamyelocytes, myelocytes, and promyelo cytes. Blood smears from CBCs yielding IG's will be scanned manually for tracy armstrong. If this scan disagrees with the automated IG or if promyelocytes are not ed, a manual differential will be performed. Rain Gran Abs 0.05 (H) 0.00 - 0.04 x10(3)/[facility] LABORATORY Specimen Anatomical Collection Method Collection Time Receive d Time (Source) Location / / Volume Laterality Blood 05/20/2022 5:02 AM 5:19 EDT AM EDT Resulting Agency Comment Spec In Lab Edward Rodríguez MD HEMATOLOGY ORDERABLES Performing Organization Address City/State/ZIP Code Phon e Number [place] [id number] HOSPITAL LABORATORY Drive (ABNORMAL) Hemogram (05/20/2022 5:02 AM EDT) Analysis Performed At Patho logist Time Signature WBC 7.8 4.0 - 9.5 [facility] x10(3[facility] LABORATORY RBC 3.53 (L) 4.58 - [facility] 5.54 [facility] x10(6)/[facility] LABORATORY Hemoglobin 11.4 (L) 13.7 - [facility] 16.5 g/dL [facility] LABORATORY Hematocrit 34.3 (L) 40.5 - [facility] 48.5 % [facility] LABORATORY MCV 97.2 (H) 82.9 - [facility] 93.1 [facility] LABORATORY MCH 32.3 (H) 27.5 - [facility] 32.1 pg [facility] LABORATORY MCHC 33.2 32.0 - [facility] 35.7 g/dL [facility] LABORATORY Platelets 181 145 - 357 [facility] x10(3[facility] LABORATORY RDWSD 46.4 (H) 36.0 - [facility] 45.0 [facility] LABORATORY RDWCV 13.0 11.4 - [facility] 13.8 % [facility] LABORATORY MPV 10.4 7.6 - 12.9 [facility] LAB[facility]ORY nRBC % Auto 0.0 % [facility] LABORATORY nRBC Abs Auto 0.000 0.000 - [facility] 0.000 [facility] x10(3)/[facility] LABORATORY Specimen Anatomical Collection Method Collection Time Receive d Time (Source) Location / / Volume Laterality Blood 05/20/2022 5:02 AM 2 5:19 EDT AM EDT Resulting Agency Comment Spec In Lab Edward Rodríguez MD HEMATOLOGY ORDERABLES Performing Organization Address City/[facility] [address]/ZIP Code Phon e Number [address] Heparin (unfractionated) Level (05/19/2022 3:26 AM EDT) P athologist Signature Heparin UFH 0.59 IU/mL [facility] LABORATORY Comment: Heparin (anti-Xa) levels should [...] Address City/State/ZIP Code Phon e Number [address] (ABNORMAL) Differential, Automated (05/19/2022 3:26 AM EDT) Patholo gist Method Time Signature Neutrophils % 62.1 % [facility] LABORATORY Neutr Abs (ANC) 4.59 1.70 - [facility] 6.10 [facility] x10(3)/[facility] LABORATORY Lymphocytes % 22.1 % [facility] LABORATORY Lymphocytes Abs 1.6 0.9 - 3.2 [facility] x10(3)/[facility] LABORATORY Monocytes % 13.5 % [facility] LABORATORY Monocyte Abs 1.0 (H) 0.3 - 0.9 [facility] x10(3)/[facility] LABORATORY Eosinophils % 1.3 % [facility] LABORATORY Eosinophils Abs 0.1 0.0 - 0.4 [facility] x10(3)/[facility] LABORATORY Basophils % 0.5 % [facility] LABORATORY Basophils Abs 0.0 0.0 - 0.1 [facility] x10(3)/[facility] LABORATORY Immature Gran % 0.50 % [facility] LABORATORY Comment: Immature granulocytes(IG's)percentage an d absolute count will include metamyelocytes, myelocytes, and promyelo cytes. Blood smears from CBCs yielding IG's will be scanned manually for concor dance. If this scan disagrees with the automated IG or if promyelocytes are not ed, a manual differential will be performed. Rain Gran Abs 0.04 0.00 - 0.04 x10(3)/[facility] LABORATORY Specimen Anatomical Collection Method Collection Time Receive d Time (Source) Location / / Volume Laterality Blood 05/19/2022 3:26 AM 2 3:59 EDT AM EDT Resulting Agency Comment Spec In Lab Edward Rodríguez MD HEMATOLOGY ORDERABLES Performing Organization Address City/State/[place] [address] (ABNORMAL) Hemogram (05/19/2022 3:26 AM EDT) Analysis Performed At Patho logist Time Signature WBC 7.4 4.0 - 9.5 [facility] x10(3)/[facility] LABORATORY RBC 3.74 (L) 4.58 - [facility] 5.54 [facility] x10(6)/[facility] LABORATORY Hemoglobin 12.1 (L) 13.7 - [facility] 16.5 g/dL [facility] LABORATORY Hematocrit 36.4 (L) 40.5 - [place] [place] 48.5 % [facility] LABORATORY MCV 97.3 (H) 82.9 - [place] 93.1 [facility] LABORATORY MCH 32.4 (H) 27.5 - [place] 32.1 pg [facility] LABORATORY MCHC 33.2 32.0 - [place] [place] 35.7 g/dL [facility] LABORATORY Platelets 168 145 - 357 [facility] x10(3)/[facility] LABORATORY RDWSD 46.9 (H) 36.0 - [place] [place] 45.0 [facility] LABORATORY RDWCV 13.0 11.4 - [place] [place] 13.8 % [facility] LABORATORY MPV 10.5 7.6 - 12.9 [facility] [place] [facility] LABORATORY nRBC % Auto 0.0 % [facility] LABORATORY nRBC Abs Auto 0.000 0.000 - [place] [place] 0.000 [facility] x10(3)/[facility] LABORATORY Specimen Anatomical Collection Method Collection Time Receive d Time (Source) Location / / Volume Laterality Blood 05/19/2022 3:26 AM 2 3:59 EDT AM EDT Resulting Agency Comment Spec In Lab Edward Rodríguez MD HEMATOLOGY ORDERABLES Performing Organization Address City/[facility] [address]/Z[place] [address] TSH (05/18/2022 8:00 PM EDT) P athologist Signature TSH 2.27 0.27 - 4.20 [facility] [place] mcIU/mL [facility] LABORATORY Comment: Reference Interval (mcIU/mL): Females: ??First Trimester: 0.23-3.88 ??Second Trimester: 0.22-3.90 ??Third Trimester: 0.44-4.66 Specimen Anatomical Collection Method Collection Time Receive d Time (Source) Location / / Volume Laterality Blood 05/18/2022 8:00 PM 2 8:06 EDT PM EDT Resulting Agency Comment Spec In Lab Fito Summers MD CHEMISTRY ORDERABLES Performing Organization Address City/State/[place] [address] (ABNORMAL) Differential, Automated (05/18/2022 3:34 AM EDT) [facility] gist Method Time Signature Neutrophils % 67.2 % [facility] LABORATORY Neutr Abs (ANC) 5.89 1.70 - [facility] 6.10 [facility] x10(3)/[facility] LABORATORY Lymphocytes % 17.1 % [facility] LABORATORY Lymphocytes Abs 1.5 0.9 - 3.2 [facility] x10(3)/[facility] LABORATORY Monocytes % 13.6 % [facility] LABORATORY Monocyte Abs 1.2 (H) 0.3 - 0.9 [facility] x10(3)/[facility] LABORATORY Eosinophils % 1.0 % [facility] LABORATORY Eosinophils Abs 0.1 0.0 - 0.4 [facility] x10(3)/[facility] LABORATORY Basophils % 0.6 % [facility] LABORATORY Basophils Abs 0.0 0.0 - 0.1 [facility] x10(3)/[facility] LABORATORY Immature Gran % 0.50 % [facility] LABORATORY Comment: Immature granulocytes(IG's)percentage an d absolute count will include metamyelocytes, myelocytes, and promyelo cytes. Blood smears from CBCs yielding IG's will be scanned manually for concor dance. If this scan disagrees with the automated IG or if promyelocytes are not ed, a manual differential will be performed. Rain Gran Abs 0.04 0.00 - 0.04 x10(3)/[facility] LABORATORY Specimen Anatomical Collection Method Collection Time Receive d Time (Source) Location / / Volume Laterality Blood 05/18/2022 3:34 AM 3:48 EDT AM EDT Resulting Agency Comment Spec In Lab Edward Rodríguez MD HEMATOLOGY ORDERABLES Performing Organization Address City/State/ZIP Code Phon e Number [place] [id number] HOSPITAL LABORATORY Drive (ABNORMAL) Hemogram (05/18/2022 3:34 AM EDT) Analysis Performed At Patho logist Time Signature WBC 8.8 4.0 - 9.5 [facility] x10(3)/[facility] LABORATORY RBC 3.45 (L) 4.58 [facility] x10(6)/[facility] LABORATORY Hemoglobin 11.2 (L) 13.7 - [facility] 16.5 g/dL [facility] LABORATORY Hematocrit 33.0 (L) 40.5 - [facility] 48.5 % [facility] LABORATORY MCV 95.7 (H) 82.9 - [facility] 93.1 [facility] LABORATORY MCH 32.5 (H) 27.5 - [facility] 32.1 pg [facility] LABORATORY MCHC 33.9 32.0 - [facility] g/dL [facility] LABORATORY Platelets 130 (L) 145 - 357 [facility] x10(3)/[facility] LABORATORY RDWSD 46.2 (H) 36.0 - [facility] 45.0 [facility] LABORATORY RDWCV 13.2 11.4 - [facility] 13.8 % [facility] LABORATORY MPV 10.8 7.6 - 12.9 [facility] LABORATORY nRBC % Auto 0.0 % [facility] LABORATORY nRBC Abs Auto 0.000 0.000 - [facility] 0.000 [facility] x10(3)/[facility] LABORATORY Specimen Anatomical Collection Method Collection Time Receive d Time (Source) Location / / Volume Laterality Blood 05/18/2022 3:34 AM 3:48 EDT AM EDT Resulting Agency Comment Spec In Lab Edward Rodríguez MD HEMATOLOGY ORDERABLES Performing Organization Address City/State/[place] [address] Heparin (unfractionated) Level (05/18/2022 3:34 AM EDT) P athologist Signature Heparin UFH 0.59 IU/mL [facility] LABORATORY Comment: Heparin (anti-Xa) levels should [...] Summers MD HEMATOLOGY ORDERABLES Performing Organization Address City/[facility] [address]/ZIP Code Phon e Number [address] Magnesium (05/17/2022 3:33 AM EDT) athologist Signature Magnesium 0.76 0.69 - 1.07 [facility] mmol/L [facility] LABORATORY Specimen Anatomical Collection Method Collection Time Receive d Time (Source) Location / / Volume Laterality Blood Venous Draw / 05/17/2022 3:33 AM 05/17/20 22 4:05 Unknown EDT AM EDT Resulting Agency Comment Spec In Lab Dottie Hill APRN CHEMISTRY ORDERABLES Performing Organization Address City/[facility] [address]/[place] [address] (ABNORMAL) Basic Metabolic Panel (non-fasting) (05/17/2022 3:33 AM EDT) athologist Signature Glucose Lvl 158 65 - 199 [facility] mg/dL [facility] LABORATORY Comment: Diabetes: >=200 mg/dL plus symp toms BUN 12 10 - 20 mg/dL [facility] LABORATORY Creatinine 0.74 (L) 0.80 - 1.50 mg/dL [facility] LABORATORY Sodium 137 135 - 145 mmol/L [facility] LABORATORY Potassium 3.5 3.5 - 5.0 mmol/L [facility] LABORATORY Comment: Please note: ??Patients with WBC >100,00 0 may have falsely elevated Potassium levels. ??For accurate Potassium quantif ication in these patients send serum separator tube (gold top) for subsequent determinations. ??Contact the Clinical Chemistry Laboratory if there are any qu estions. Chloride 102 98 - 107 mmol/L [facility] LABORATORY CO2 25 22 - 31 mmol/L [facility] LABORATORY Anion Gap 10 5 - 15 mmol/L [facility] LABORATORY Calcium 8.4 (L) 8.5 - 10.5 mg/dL [facility] LABORATORY Estimated GFR 92 >=60 mL/min/1.73 m?? [facility] LABORATORY Comment: This patient's estimated GFR [...] EDT Resulting Agency Comment Spec In Lab Ftio Summers MD CHEMISTRY ORDERABLES Performing Organization Address City/State/Z[place] [address] (ABNORMAL) Differential, Automated (05/17/2022 3:33 AM EDT) [facility] Method Time Signature Neutrophils % 65.5 % [facility] LABORATORY Neutr Abs (ANC) 6.84 (H) 1.70 - [facility] 6.10 [facility] x10(3)/[facility] LABORATORY Lymphocytes % 19.7 % [facility] LABORATORY Lymphocytes Abs 2.1 0.9 - 3.2 [facility] x10(3)/[facility] LABORATORY Monocytes % 13.1 % [facility] LABORATORY Monocyte Abs 1.4 (H) 0.3 - 0.9 [facility] x10(3)/[facility] LABORATORY Eosinophils % 0.6 % [facility] LABORATORY Eosinophils Abs 0.1 0.0 - 0.4 [facility] x10(3)/[facility] LABORATORY Basophils % 0.6 % [facility] LABORATORY Basophils Abs 0.1 0.0 - 0.1 [facility] x10(3)/[facility] LABORATORY Immature Gran % 0.50 % [facility] LABORATORY Comment: Immature granulocytes(IG's)percentage an d absolute count will include metamyelocytes, myelocytes, and promyelo cytes. Blood smears from CBCs yielding IG's will be scanned manually for concor dance. If this scan disagrees with the automated IG or if promyelocytes are not ed, a manual differential will be performed. Rain Gran Abs 0.05 (H) 0.00 - 0.04 x10(3)/[facility] LABORATORY Specimen Anatomical Collection Method Collection Time Receive d Time (Source) Location / / Volume Laterality Blood 05/17/2022 3:33 AM 3:53 EDT AM EDT Resulting Agency Comment Spec In Lab Edward Rodríguez MD HEMATOLOGY ORDERABLES Performing Organization Address City/State/Z[place] [address] (ABNORMAL) Hemogram (05/17/2022 3:33 AM EDT) Analysis Performed At Patho logist Time Signature WBC 10.4 (H) 4.0 - 9.5 [facility] x10(3)/[facility] LABORATORY RBC 3.72 (L) 4.58 - [facility] 5.54 [facility] x10(6)/[facility] LABORATORY Hemoglobin 12.0 (L) 13.7 - [facility] 16.5 g/dL [facility] LABORATORY Hematocrit 36.4 (L) 40.5 - [facility] 48[facility] % [facility] LABORATORY MCV 97.8 (H) 82.9 - [facility] [place] 93.1 [facility] LABORATORY MCH 32.3 (H) 27.5 - [facility] [place] 32.1 pg [facility] LABORATORY MCHC 33.0 32.0 - [place] [place] 35.7 g/dL [facility] LABORATORY Platelets 149 145 - 357 [facility] x10(3)/[facility] LABORATORY RDWSD 48.7 (H) 36.0 - [place] 45.0 [facility] LABORATORY RDWCV 13.5 11.4 - [facility] 13.8 % [facility] LABORATORY MPV 10.6 7.6 - 12.9 [facility] LABORATORY nRBC % Auto 0.0 % [facility] LABORATORY nRBC Abs Auto 0.000 0.000 - [facility] x10(3)/[facility] LABORATORY Specimen Anatomical Collection Method Collection Time Receive d Time (Source) Location / / Volume Laterality Blood 05/17/2022 3:33 AM 3:53 EDT AM EDT Resulting Agency Comment Spec In Lab Edward Rodríguez MD HEMATOLOGY ORDERABLES Performing Organization Address City/State/[place] [address] (ABNORMAL) Urinalysis Microscopic Exam (05/16/2022 11:15 PM EDT) P athologist Signature RBC UA 8 (H) 0 - 3 /HPF [facility] LABORATORY WBC UA 2 0 - 3 /HPF [facility] LABORATORY Specimen Anatomical Collection Method Collection Time Receive d Time (Source) Location / / Volume Laterality Clean Catch 05/16/2022 11:15 05/16/2022 Urine PM EDT 11:30 PM EDT Resulting Agency Comment Spec In Lab Barbie Ashraf MD URINE ORDERABLES Performing Organization Address City/State/[place] [address] (ABNORMAL) Urinalysis with reflex Culture (05/16/2022 11:15 PM EDT) Patholo gist Method Time Signature Glucose UA Negative Negative [facility] Protein UA Negative Negative [facility] mg/dL [facility] Bilirubin UA Negative Negative [facility] mg/dL [facility] Comment: Clinical correlation required for positi ve Urine Bilirubin results as false positive may occur with some drugs and d rug related products. If a false positive is suspected a serum total bili quarles should be considered if clinically indicated. Urobilinogen UA Normal Normal mg/dL [facility] pH UA 6.0 5.0 - 8.0 [facility] Blood UA Small (A) Negative mg/dL [facility] Ketones UA Trace (A) Negative mg/dL [facility] Nitrite UA Negative Negative [facility] Leukocytes UA Negative Negative [facility] Appearance UA Clear Clear [facility] Spec Blanchard UA 1.021 1.005 - 1.030 [facility] Color UA Yellow Yellow [facility] Culture Reflexed No [facility] Specimen Anatomical Collection Method Collection Time Receive d Time (Source) Location / / Volume Laterality Clean Catch 05/16/2022 11:15 05/16/2022 Urine PM EDT 11:30 PM EDT Resulting Agency Comment Spec In Lab Fito Summers MD URINE ORDERABLES Performing Organization Address City/State/[place] [address] Heparin (unfractionated) Level (05/16/2022 10:59 PM EDT) P athologist Signature Heparin UFH 0.65 IU/mL [facility]ORATORY Comment: Specimen drawn more than [...] Organization Address City/State/ZIP Code Phon e Number [place] [id number] HOSPITAL LAB[address]ATORY Drive XR Chest One View [...] questions please contact the health critical care transport nurse that requested your imaging first. ? [...] questions please contact the health critical care transport nurse that requested your imaging first. Electronically signed by: Tiffanie George MD , [facility] ([phone]), at 05/16/2022 9:27 PM Fito Summers MD IMG DX ORDERABLES EKG 12 Lead (05/16/2022 8:57 PM EDT) Component Value Ref Range Test Analysis Performed Pathologis t Method Time At Signature Ventricular rate 117 BPM MUSE SYSTEM QRS Duration 112 ms MUSE SYSTEM Q-T Interval 346 ms MUSE SYSTEM QTC Calculated 482 ms MUSE SYSTEM (Bezet) Calculated R Shawnee -48 degrees MUSE SYSTEM Calculated T Shaw[place] 111 degrees MUSE SYSTEM INTERPRETATION Atrial fibrillation [...] Summers MD ECG ORDERABLES Performing Organization Address City/[facility] [address]/ZIP Code Phon e Number MUSE SYSTEM Heparin (unfractionated) Level (05/16/2022 4:34 PM EDT) P athologist Signature Heparin UFH 0.53 IU/mL [facility] LABORATORY Comment: Heparin (anti-Xa) levels should [...] / Volume Laterality Blood 05/16/2022 4:34 PM 4:44 EDT PM EDT Resulting Agency Comment Spec In Lab Fito Summers MD HEMATOLOGY ORDERABLES Performing Organization Address City/[facility] [address]/ZIP [place] [address] ECHOCARDIOGRAM COMPLETE W CONTRAST (05/16/2022 12:49 PM EDT) athologist Signature EF 28 [facility] Specimen (Source) Anatomical Collection Method Collection Time Re ceived Time Location / / Volume Laterality 05/16/2022 11:22 AM EDT Narrative HEART[facility] SYSTEM - 05/16/2022 1:54 PM EDT ?[facility] ?[address] ? [place] [address] ?Voice: ?Fax: ? Echocardiogram Report Name: KOKO ZAMORA ?Study Date: 05/16/2022 11:22 AM ? Patient Location: 3WST 0303 B : 1940 ? Height: 67.5 in ? Account: [id number] Age: 81 yrs ? Weight: 176 lb Gender: Male ?BSA: 1.9 m2 Ordering Physician: FITO SUMMERS Referring Physician: MALI FLORIAN Performed By: Jolene Bernard [facility] Exam Location: [facility]. Interpretation Summary Left ventricle is mildly [...] and LV systolic dysfunction are new. Procedure Complete-[id number]. Image enhancement Optiso n was used for [...] note might be different from the original. [facility] [address] [place] [address] Voice: Fax: Echocardiogram Report Name: KOKO ZAMORA Study Date: 05/2022 11:22 AM Patient Location: [address] [place] [address] : 1940 Height: 67.5 in Account: [id number] Age: 81 yrs Weight: 176 lb Gender: Male BSA: 1.9 m2 Ordering Physician: FITO SUMMERS Referring Physician: MALI FLORIAN Performed By: Jolene Bernard RDCS Exam Location: [facility]. Interpretation Summary Left ventricle is mildly [...] and LV systolic dysfunction are new. Procedure Complete-[id number]. Image enhancement Optiso n was used for [...] (ABNORMAL) Differential, Automated (05/16/2022 3:01 AM EDT) [facility] gist Method Time Signature Neutrophils % 78.8 % [facility] Neutr Abs (ANC) 9.11 (H) 1.70 - [facility] 6.10 [facility] x10(3)/[facility] L LABORATORY Lymphocytes % 9.4 % [facility] Lymphocytes Abs 1.1 0.9 - 3.2 [facility] x10(3)/[facility] LABORATORY Monocytes % 10.9 % [facility] Monocyte Abs 1.3 (H) 0.3 - 0.9 [facility] x10(3)/[facility] LABORATORY Eosinophils % 0.0 % [facility] Eosinophils Abs 0.0 0.0 - 0.4 [facility] x10(3)/[facility] LABORATORY Basophils % 0.3 % [facility] Basophils Abs 0.0 0.0 - 0.1 [facility] x10(3)/[facility] LABORATORY Immature Gran % 0.60 % [facility] Comment: Immature granulocytes(IG's)percentage an d absolute count will include metamyelocytes, myelocytes, and promyelo cytes. Blood smears from CBCs yielding IG's will be scanned manually for concor dance. If this scan disagrees with the automated IG or if promyelocytes are not ed, a manual differential will be performed. Rain Gran Abs 0.07 (H) 0.00 - 0.04 x10(3)/[facility] LABORATORY Specimen Anatomical Collection Method Collection Time Receive d Time (Source) Location / / Volume Laterality Blood 05/16/2022 3:01 AM 2 3:36 EDT AM EDT Resulting Agency Comment Spec In Lab Erin Garza MD HEMATOLOGY ORDERABLES Performing Organization Address City/State/ZIP [place] [address] (ABNORMAL) Hemogram (05/16/2022 3:01 AM EDT) Analysis Performed At Patho logist Time Signature WBC 11.6 (H) 4.0 - 9.5 [facility] x10(3)/[facility] LABORATORY RBC 3.62 (L) 4.58 - [facility] 5.54 [facility] x10(6)/[facility] LABORATORY Hemoglobin 12.0 (L) 13.7 - [facility] 16.5 g/dL [facility] Hematocrit 35.3 (L) 40.5 - [facility] 48.5 % [facility] MCV 97.5 (H) 82.9 - [facility] 93.1 [facility] LABORATORY MCH 33.1 (H) 27.5 - [facility] 32.1 pg [facility] MCHC 34.0 32.0 - [facility] 35.7 g/dL [facility] Platelets 151 145 - 357 [facility] x10(3)/[facility] LABORATORY RDWSD 47.6 (H) 36.0 [facility] RDWCV 13.3 11.[address] [facility] 13.8 % [facility] MPV 10.5 7.6 - 12.9 [facility] LABORATORY nRBC % Auto 0.0 % [facility] nRBC Abs Auto 0.000 0.000 - [facility] 0.000 [facility] x10(3)/[facility] LABORATORY Specimen Anatomical Collection Method Collection Time Receive d Time (Source) Location / / Volume Laterality Blood 05/16/2022 3:01 AM 2 3:36 EDT AM EDT Resulting Agency Comment Spec In Lab Erin Garza MD HEMATOLOGY ORDERABLES Performing Organization Address City/[facility] [address]/ZIP Code Phon e Number [address] Phosphorus (05/16/2022 3:01 AM EDT) athologist Signature Phosphorus 3.7 2.5 - 4.5 [facility] mg/dL [facility] Specimen Anatomical Collection Method Collection Time Receive d Time (Source) Location / / Volume Laterality Blood 05/16/2022 3:01 AM 2 3:36 EDT AM EDT Resulting Agency Comment Spec In Lab Fito Summers MD CHEMISTRY ORDERABLES Performing Organization Address City/[facility] [address]/ZIP Code Phon e Number [address] Magnesium (05/16/2022 3:01 AM EDT) athologist Signature Magnesium 0.77 0.69 - 1.07 [facility] mmol/L [facility] Specimen Anatomical Collection Method Collection Time Receive d Time (Source) Location / / Volume Laterality Blood 05/16/2022 3:01 AM 2 3:36 EDT AM EDT Resulting Agency Comment Spec In Lab Fito Summers MD CHEMISTRY ORDERABLES Performing Organization Address City/[facility] [address]/ZIP Code Phon e Number [address] (ABNORMAL) Basic Metabolic Panel (non-fasting) (05/16/2022 3:01 AM EDT) athologist Signature Glucose Lvl 222 (H) 65 - 199 [facility] mg/dL [facility] Comment: Diabetes: >=200 mg/dL plus symp toms BUN 12 10 - 20 mg/dL [facility] Creatinine 0.66 (L) 0.80 - 1.50 mg/dL [facility] Sodium 138 135 - 145 mmol/L [facility] Potassium 4.5 3.5 - 5.0 mmol/L [facility] Comment: Please note: ??Patients with WBC >100,00 0 may have falsely elevated Potassium levels. ??For accurate Potassium quantif ication in these patients send serum separator tube (gold top) for subsequent determinations. ??Contact the Clinical Chemistry Laboratory if there are any qu estions. Chloride 108 (H) 98 - 107 mmol/L [facility] CO2 22 22 - 31 mmol/L [facility] Anion Gap 8 5 - 15 mmol/L [facility] Calcium 8.2 (L) 8.5 - 10.5 mg/dL [facility] Estimated GFR 95 >=60 mL/min/1.73 m?? [facility] Comment: This patient's estimated GFR [...] Organization Address City/State/Z[place] [address] (ABNORMAL) BLOOD GAS 2 ARTERIAL (05/15/2022 3:33 PM EDT) Analysis Performed At Patho logist Time Signature pH Art 7.33 (L) 7.35 - [facility] 7.45 [facility] pCO2 Art 41 35 - 45 [facility] LABORATORY pO2 Art 131 (H) 85 - 104 [facility] LABORATORY HCO3 Art 21.1 20.0 - [facility] 26.0 [facility] mmol/L [facility] LABORATORY BE Art -4.8 (L) -3.0 - 3.0 [facility] mmol/L [facility] Hgb Blood Gas 13.4 (L) 13.7 - [facility] 16.5 g/dL [facility] O2HB Art 96.9 94.0 - [facility] 97.0 % [facility] COHB Art 1.4 % [facility] Comment: Nonsmokers: 0.5-1.5% COHB Smokers: Variable, but usually less than 10% Toxic: 20-30% COHB Lethal: Greater than 60% COHB METHB Art 0.3 <=1.5 % [facility] Na Whole Blood 139 135 - 145 mmol/L [facility] K Whole Blood 3.8 3.5 - 5.0 mmol/L [facility] Comment: Please note: Patients with WBC >100,000 may have falsely elevated Potassium levels. Contact the Clinical Chemistry L aboratory if there are any questions. ICa Whole Blood 1.32 1.15 - 1.33 mmol/L [facility] Comment: Note: ??Total bilirubin higher than 20 m g/dL may lead to falsely low ionized calcium. CL Whole Blood 113 (H) 98 - 107 mmol/L [facility] Gluc Whole Bld 136 65 [...] Organization Address City/State/ZIP [place] [address] (ABNORMAL) BLOOD GAS 2 ARTERIAL (05/15/2022 2:06 PM EDT) Analysis Performed At Patho logist Time Signature pH Art 7.39 7.35 - [facility] 7.45 [facility] pCO2 Art 35 35 - 45 [facility] mmHg [facility] pO2 Art 135 (H) 85 - 104 [facility] LABORATORY HCO3 Art 20.8 20.0 - [facility] 26.0 [facility] mmol/L [facility] LABORATORY BE Art -4.2 (L) -3.0 - 3.0 [facility] mmol/L [facility] Hgb Blood Gas 14.5 13.7 - [facility] 16.5 g/dL [facility] O2HB Art 97.2 (H) 94.0 - [facility] 97.0 % [facility] COHB Art 1.2 % [facility] Comment: Nonsmokers: 0.5-1.5% COHB Smokers: Variable, but usually less than 10% Toxic: 20-30% COHB Lethal: Greater than 60% COHB METHB Art 0.3 <=1.5 % [facility] Na Whole Blood 140 135 - 145 mmol/L [facility] K Whole Blood 3.8 3.5 - 5.0 mmol/L [facility] Comment: Please note: Patients with WBC >100,000 may have falsely elevated Potassium levels. Contact the Clinical Chemistry L aboratory if there are any questions. ICa Whole Blood 1.12 (L) 1.15 - 1.33 mmol/L [facility] Comment: Note: ??Total bilirubin higher than 20 m g/dL may lead to falsely low ionized calcium. CL Whole Blood 109 (H) 98 - 107 mmol/L [facility] Gluc Whole Bld 152 65 - 199 mg/dL [facility] Comment: Diabetes: >=200 mg/dL plus symp toms. Lactate WB 1.5 0.5 - 2.2 mmol/L [facility]OR[facility]ORY Specimen Anatomical Collection Method Collection Time Receive d Time (Source) Location / / Volume Laterality Blood 05/15/2022 2:06 PM 2:[address] Jamel Torre MD CHEMISTRY ORDERABLES Performing Organization Address City/[facility] [address]/ZIP Code Phon e Number [place] [phone] HOSPITAL LABORATORY Drive (ABNORMAL) Prothrombin Time (05/15/2022 12:30 PM EDT) athologist Signature PT 12.9 (H) 9.4 - 12.5 [facility] LABORATORY INR 1.1 [facility] Comment: An INR <2.0 indicates [...] Morales DO HEMATOLOGY ORDERABLES Performing Organization Address City/[facility] [address]/[place] [address] (ABNORMAL) APTT (05/15/2022 12:30 PM EDT) P athologist Signature PTT 76 (H) 25 - [address] [facility] Comment: The PTT is NOT [...] Organization Address City/State/[place] [address] Gold Tube HOLD (05/15/2022 12:20 PM EDT) athologist Signature Gold Hold Sample in [facility]. [facility] Specimen Anatomical Collection Method Collection Time Receive d Time (Source) Location / / Volume Laterality Blood No Charge / 05/15/2022 12:20 05/15/2022 Unknown PM EDT 12:20 PM EDT Lc Dominick Kimberly TRIPP CHEMISTRY ORDERABLES Performing Organization Address City/State/[place] [address] Type and Screen Validity (05/15/2022 12:00 PM EDT) [facility] Method Time Signature T&S only valid [facility] at [facility] Comment: This Type and Screen result is only valid at the [facility] Specimen Anatomical Collection Method Collection Time Receive d Time (Source) Location / / Volume Laterality Blood 05/15/2022 12:00 05/15/2022 PM EDT 12:17 PM EDT Resulting Agency Comment Spec In Lab Lc TRIPP BLOOD BANK ORDERABLES Performing Organization Address City/[facility] [address]/ZIP Code Phon e Number [address] ABORH Recheck Status (05/15/2022 12:00 PM EDT) [facility] Method Time Signature ABORH Recheck Order Placed [facility] K Order [facility] ABORH Type Complete [facility] LABORATORY Specimen Anatomical Collection Method Collection Time Receive d Time (Source) Location / / Volume Laterality Blood 05/15/2022 12:00 05/15/2022 PM EDT 12:17 PM EDT Resulting Agency Comment Spec In Lab Lc Dominick Kimberly TRIPP BLOOD BANK ORDERABLES Performing Organization Address City/State/[place] [address] CK (05/15/2022 12:00 PM EDT) P athologist Signature CK, Total 87 0 - 200 [facility] unit/L [facility] Specimen Anatomical Collection Method Collection Time Receive d Time (Source) Location / / Volume Laterality Blood Venous Draw / 05/15/2022 12:00 05/15/2022 Unknown PM EDT 12:19 PM EDT Resulting Agency Comment Spec In Lab Fito Summers MD CHEMISTRY ORDERABLES Performing Organization Address City/[facility] [address]/[place] [address] Antibody screen (05/15/2022 12:00 PM EDT) [facility] Method Time Signature Ab Screen Negative [facility] LABORATORY Expires at 05/18/2022 [facility] [id number] on: [facility] Specimen Anatomical Collection Method Collection Time Receive d Time (Source) Location / / Volume Laterality Blood 05/15/2022 12:00 05/15/2022 PM EDT 12:17 PM EDT Resulting Agency Comment Spec In Lab Lc TRIPP BLOOD BANK ORDERABLES Performing Organization Address City/[facility] [address]/ZIP Code Phon e Number [address] ABO/Rh Typing (05/15/2022 12:00 PM EDT) athologist [facility] ABORh Type O Pos [facility]ORY Specimen Anatomical Collection Method Collection Time Receive d Time (Source) Location / / Volume Laterality Blood 05/15/2022 12:00 05/15/2022 PM EDT 12:17 PM EDT Resulting Agency Comment Spec In Lab Lc Harris PA BLOOD BANK ORDERABLES Performing Organization Address City/[facility] [address]/ZIP Code Phon e Number [address] (ABNORMAL) Differential, Automated (05/15/2022 12:00 PM EDT) [facility] Method Time Signature Neutrophils % 79.4 % [facility] Neutr Abs (ANC) 7.49 (H) 1.70 - [facility] 6.10 [facility] x10(3)/[facility] L LABORATORY Lymphocytes % 11.3 % [facility] Lymphocytes Abs 1.1 0.9 - 3.2 [facility] x10(3)/[facility] LABORATORY Monocytes % 7.8 % [facility] Monocyte Abs 0.7 0.3 - 0.9 [facility] x10(3)/[facility] LABORATORY Eosinophils % 0.6 % [facility] Eosinophils Abs 0.1 0.0 - 0.4 [facility] x10(3)/[facility] LABORATORY Basophils % 0.6 % [facility] Basophils Abs 0.1 0.0 - 0.1 [facility] x10(3)/[facility] LABORATORY Immature Gran % 0.30 % [facility] Comment: Immature granulocytes(IG's)percentage an d absolute count will include metamyelocytes, myelocytes, and promyelo cytes. Blood smears from CBCs yielding IG's will be scanned manually for concor dance. If this scan disagrees with the automated IG or if promyelocytes are not ed, a manual differential will be performed. Rain Gran Abs 0.03 0.00 - 0.04 x10(3)/[facility] LABORATORY Specimen Anatomical Collection Method Collection Time Receive d Time (Source) Location / / Volume Laterality Blood 05/15/2022 12:00 05/15/2022 PM EDT 12:19 PM EDT Resulting Agency Comment Spec In Lab Lc TRIPP HEMATOLOGY ORDERABLES Performing Organization Address City/State/ZIP [place] [address] (ABNORMAL) Hemogram (05/15/2022 12:00 PM EDT) Analysis Performed At Patho logist Time Signature WBC 9.4 4.0 - 9.5 [facility] x10(3)/[facility] LABORATORY RBC 4.48 (L) 4.58 - [facility] 5.54 [facility] x10(6)/[facility] LABORATORY Hemoglobin 14.5 13.7 - [facility] 16.5 g/dL [facility] Hematocrit 42.4 40.5 [facility] 48.5 % [facility] MCV 94.6 (H) 82.9 - [facility] 93.1 [facility] LABORATORY MCH 32.4 (H) 27.5 - [facility] 32.1 pg [facility] MCHC 34.2 32.0 - [facility] 35.7 g/dL [facility] Platelets 209 145 - 357 [facility] x10(3)/[facility] LABORATORY RDWSD 45.9 (H) 36.0 - [facility] 45.0 [facility] LABORATORY RDWCV 13.1 11.4 - [facility] 13.8 % [facility] LABORATORY MPV 10.5 7.6 - 12.9 [facility] LABORATORY nRBC % Auto 0.0 % [facility]ORATORY nRBC Abs Auto 0.000 0.000 - [facility] 0.000 [facility] x10(3)/[facility] LABORATORY Specimen Anatomical Collection Method Collection Time Receive d Time (Source) Location / / Volume Laterality Blood 05/15/2022 12:00 05/15/2022 PM EDT 12:19 PM EDT Resulting Agency Comment Spec In Lab Lc TRIPP HEMATOLOGY ORDERABLES Performing Organization Address City/State/Z[place] [address] (ABNORMAL) Basic Metabolic Panel (non-fasting) (05/15/2022 12:00 PM EDT) P athologist Signature Glucose Lvl 203 (H) 65 - 199 [facility] mg/dL [facility] Comment: Diabetes: >=200 mg/dL plus symp toms BUN 16 10 - 20 mg/dL [facility] LABORATORY Creatinine 0.84 0.80 - 1.50 mg/dL [facility] LAB[facility]ORY Sodium 141 135 - 145 mmol/L [facility] Potassium 4.7 3.5 - 5.0 mmol/L [facility] Comment: Please note: ??Patients with WBC >100,00 0 may have falsely elevated Potassium levels. ??For accurate Potassium quantif ication in these patients send serum separator tube (gold top) for subsequent determinations. ??Contact the Clinical Chemistry Laboratory if there are any qu estions. Chloride 107 98 - 107 mmol/L [facility] CO2 23 22 - 31 mmol/L [facility] Anion Gap 11 5 - 15 mmol/L [facility] Calcium 8.5 8.5 - 10.5 mg/dL [facility] Estimated GFR 89 >=60 mL/min/1.73 m?? [facility] Comment: This patient's estimated GFR [...] Organization Address City/State/Z[place] [address] documented in this encounter [...] Starting on Brandi 05/16/22 at 1606, Until Tu05/21/22 at 1743, Pain, Maximum dose of acetaminophen [...] 100 mg, Oral, DAILY, First dose on Fri05/16/22 [...] DION) 0852 (Given - Provider: Barbie Joyce , RN)1750 (JAN Hold - Provider: Admin Adt - Reason: Transfer to a Procedural area)1955 ([facility] - Provider: Admin Adt) 814 (Given - Provider: Etta contreras RN) 1,000 mcg, Oral, DAILY, First dose on 05/16/22 at 0900, Until Discontinued, Routine metoprolol tartrate (Lopressor) tablet 12.5 mg (CANCEL ED) 0838 (Given - Provider: Caroline Zamora, RN)2008 (Given - Provider: Nuris Lester, DION) 0853 (Given - Provider: Barbie Joyce , RN)175 ([facility] - Provider: Admin Adt - Reason: Transfer to a Procedural area)1955 ([facility] - Provider: Admin Adt)2004 (Given - Provider: Tere Blankenship, RN) 0817 (Given - Provider: Etta Don, DION) 12.5 mg, Oral, EVERY 12 HOURS SCHEDULED (2 times per day), First dose on 05/18/22 at 2100, Until Discontinued, Routine metoprolol tartrate (Lopressor) tablet 12.5 mg 1136 (Given - Provider: Etta Don RN) 12.5 mg, Oral, EVERY 6 HOURS SCHEDULED, First dose (after last modification) on Fri05/21/22 at 1200, Until Discontinued, Routine multivitamin with minerals (Thera M) tablet 1 tablet 0 838 (Given - Provider: Caroline Zamora RN) 0852 (Given - Provider: Barbie Joyce RN)1750 ([facility] - Provider: Admin Adt - Reason: Transfer to a Procedural area)1955 ([facility] - Provider: Admin Adt) [...] Nuris Lester RN - Reason: Patient/family refused) 0900 (Not Given - Provider: Barbie joseph RN - Reason: NPO)1750 ([facility] Hold - Provider: Admin Adt - Reason: Transfer to a Procedural area)1955 ([facility] - Provider: Admin Adt)2132 (Given - Provider: Tere Blankenship RN) 0815 [...] 0853 (Given - Provider: Barbie Joyce RN)1750 ([facility] Hold - Provider: Admin Adt - Reason: Transfer to a Procedural area)1955 ([facility] - Provider: Admin Adt) 0816 (Given - Provider: Etta contreras, RN) 40 mg, Oral, EVERY EVENING, First dose o n Fri05/16/22 at 0900, Until Discontinued, Routine sodium chloride 0.9 % (flush) (BD PosiFlush Normal Ubaldo ine 0.9) flush 5 mL 09 (Not Given - Provider: Caroline Zamora RN [...] 100 mg, Oral, DAILY, First dose on Fri at 0900, Until Discontinued, Routine valsartan (Diovan) tablet 40 mg 0838 (Given - Provider : Caroline Zamora RN)2008 (Given - Provider: Nuris Lester RN) 0853 (Given - Provider: Barbie Joyce RN)175 ([facility] - Provider: Admin Adt - [...] infusion 1935 (New Bag - Provider: Nuris Lester RN) 1600 (New Bag - Provider: Barbie Joyce RN)175 ([facility] - Provider: Admin Adt - Reason: Transfer to a Procedural area)1955 ([facility] - Provider: Admin Adt) 218 (Restarted - Provider: Tere Blankenship RN - [...] 1900 (Continued Bag - Provider: Cassy Schultz RN)0 (Stopped - Provider: Tere Blankenship RN) 150 [...] g on Brandi 05/16/22 at 1606, Until 05/21/22 at 1743, Pain, Maximum dose of acetaminophen is 4000 mg from all sources in 24 hours. When ordered for pain, acetaminop hen should be given even when other orde red pain medications are indicated. , Routine alum-mag hydroxide-simeth (Maalox) (40 mg-40 mg-4 mg/mL) ora l liquid 10 mL 190 (Given - Provider: Cassy Schultz RN - [...] - Reason: Transfer to a Procedural area)1955 ([facility] - Provider: Admin Adt) 10 mg, Rectal, DAILY PRN, Starting on u 05/16/22 at 1604, Until Fri05/21/22 at 1743, Constipation, Routine clopidogreL (Plavix) tablet (CANCELED) 1 746 (Given - Provider: Flavai Schuler RN) ONCE PRN, Starting on Fri05/20/22 at 174 6, Until Fri05/20/22 at 1842, Intra- Operative (Intra-Procedure), Routine fentaNYL (pf) (50 mcg/mL) multi-dose injection (CANCELED) 171 (Given - Provider: Abundio Servin MD) ONCE PRN, Starting on Fri05/20/22 at 171 4, Until Fri05/20/22 at 1842, Intra- Operative (Intra-Procedure), Routine heparin (porcine) (1,000 units/mL) injection 0-8,000 Units 1750 ([facility] Hold - Provider: Admin Adt - Reason: Transfer to a Procedural area)1955 ([facility] - Provider: Admin Adt) [...] injection (CANCELED) 1725 (Given - Provider: Flavia Schuler, RN)1745 (Given - Provider: Negra Bailey, DION) ONCE [...] mg 0605 (Given - Pr ovider: Emily Sauceda, DION) 1750 ([facility] - Provider: Admin Adt - R lexie: Transfer to a Procedural area)1955 ([facility] - Provider: Admin Adt) 5 mg, Intravenous, EVERY 5 MIN PRN, Star ting on Fri05/19/22 at 0506, Until Fri05/21/22 at 1743, Elevated Heart Rate, up to 3 doses for HR >110 midazolam (pf) (Versed) (1 mg/mL) multi-dose injection (CAN ELED) 1714 (Given - Provider: Abundio Servin MD) ONCE [...] - Reason: Transfer to a Procedural area)1955 ([facility] - Provider: Admin Adt) [...] - Reason: Transfer to a Procedural area)1955 ([facility] - Provider: Admin Adt) [...]
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
--- OUTSIDE RECORDS SUMMARY | 2022-07-05 12:36 | XMS_ITS | Encounter Summary ---
:1940 [place] [address] Care Team Providers Name Role Phone Bobby Das MD Primary Care Provider Reason for Visit Reason Comments Left Leg Pain Auth/Cert Specialty Diagnoses / Procedures Referred By Contact Refer red To Contact Diagnoses Limb ischemia LLE thrombus Fito Summers MD [facility] [place] [address] Referral ID Status Reason Start Date Expiration Date Visits Requ ested Visits Authorized [id number] 1 1 Encounter Details Date Type Department Care Team Description 05/15/2022 Surgery Main Operating Room Savana Summers se, [facility], [facility] FEMOROPOSANG, [facility] VASCULAR SURG JULIAN [place]TOILI[place] [address] LEG INCISION ([place] [address] 19.48) [phone] Social History Tobacco Use Types Packs/Day Years [...] onset Afib who presents in transfer from [facility] with acute limb ischemia of [...] emergently went to the OR for L GENERAL FOUNDRY WORKER transverse arteriotomy and primary repair, thromboembolectomy of L SFA/PFA/GENERAL FOUNDRY WORKER, reperfusion venous drainage for 250 cc, and [...] Discharge Condition: Good Discharge to: Home with [facility] [address] [address] Future Appointments and Orders Future Appointments and Orders Future Appointments Provider Department Dept Phone 05/23/2022 10:30 AM Loretta Cohen MD Dermatology at [facility] Arrive at: Sample Preparation Supervisor [address] [place] [address] 06/07/2022 1:30 PM Gail Rae APRN Vascular Surgery at [facility] Arrive at: Sample Preparation Supervisor Area [phone] 06/13/2022 7:30 AM Edson Lagos [place] Vascular Lab at [facility] Arrive at: Sample Preparation Supervisor Area [phone] 06/13/2022 8:00 AM Fito Summers MD Vascular Surgery at [facility] Arrive at: Sample Preparation Supervisor Area 3V [phone] 06/13/2022 10:00 AM Alan Reid MD Cardiology at [facility] Arrive at: Sample Preparation Supervisor Area 4A [phone] Future Orders Complete By Expires Ziopatch 48 Hrs-15 Days [RUD0316 CPT(R)] 05/21/2022 11/20/2022 Process Instructions: Scheduling Instructions: Comments: Questions: Does the patient have a pacemaker? If yes provide HI/LO settings: Apply for 7 or 14 days?: 7 Where will study be performed?: [facility] JOSSELYN, legs, multiple levels [VAS8 Custom] 06/21/2022 (Approximate) 12/21/2022 Process Instructions: There is no in-house vascular director geophysical laboratory available on weeknights (5pm-8am), weekends, or holidays. IF THIS IS A REQUEST FOR AN EMERGENT STUDY DURING THOSE HOURS, please have the senior provider responsible for the patient page the Vascular Surgery Fellow/Senior Resident trade union official to discuss options. Scheduling Instructions: Questions: Indication for study/signs & symptoms: ALI s/p L fem cutdown with thromboembolectomy Question to be answered: Perfusion to feet? Please check toe pressure Preferred location?: [facility] Referral to Cardiology [REF12 Custom] As [...] Health. [address] [facility] [address] (home) Date of : 1940 Inpatient DOCUMENTATION FOR VNA SERVICES (INCLUDING THOSE PATIENTS WITH MEDICARE COVERAGE REQUIRING HOME VNA SERVICES AND/OR HOSPICE SERVICES) PATIENT'S LOCATION: Koko Zamora [address] [facility] [address] (home) Cell: No relevant phone numbers on file. 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 HOME HEALTH CARE AGENCY: [facility] [address] [place] [address] Start of care: Within 24 to 48 [...] obtained from this patient'sPCP: Bobby Das MD [address] [place] [address] / [place] [address] All VNA agencies which cover the [...] For any problems or questions please call [phone] For issues on weeknights after 5pm and weekends please call [phone] and ask for the Vascular Fellow trade union official. JOSEE Santiago Vascular Surgery 05/21/2022 documented in [...] For any problems or questions please call [phone] For issues on weeknights after 5pm and weekends please call [phone] and ask for the Vascular Fellow trade union official. documented in this encounter Medications at Time [...] 04/12/20 21 (FLONASE) 50 mcg/actuation Nare route [place], Suspension daily as needed. fluorouraciL (EFUDEX) 5 [...] onset Afib who presents in transfer from [facility] with acute limb ischemia of [...] status, full code. JOSEE Santiago 05/21/2022 Pager: [phone] PaBrannon gamino, PT - 05/21/2022 10:35 AM [...] plan as stated. Time IN / OUT: 0692-9894 Total Minutes, Physical Therapy: 25 Billing Code: 2 TA Brannon Isaacs DPT Pager: [phone] Physical Therapy Inpatient Rehabilitation Department [place] Jean [...] 04/17/2021 in Pain and Spine Center at [facility] Weight 79.8 kg (175 lb 14.8 oz) [...] and plan of care per Dr. Mcnamara (reel stripper). Please refer to her note above for [...] limb ischemia (thromboembolic) and he is a correction smoker (1/2 ppd, recommend nicotine patch). His [...] to Hosp-Admission (Current) from 05/15/2022 in 4 [facility] Office Visit from 04/17/2021 in Pain and Spine Center at [facility] Weight 79.8 kg (175 lb 14.8 oz) [...] findings andplan of care per Dr. Mcnamara (reel stripper). Please refer to her note above for [...] a mitral repair in 2000 (not at [facility]) with no CAD at that time. Currently, [...] AF and the first documented HR at [facility] was 125 bpm (presented to an an [...] onset Afib who presents in transfer from [facility] with acute limb ischemia of [...] management following Dottie Hill APRN 05/20/2022 Pager: [phone] Laney Atkins RN - 05/20/2022 1:14 AM EDT Pt Koko transferred to room from [facility]. A&Ox4, oriented to room and call boo. Masimo and telemetry placed. In agreement with assessment as documented this evening by Nuris ASHLEY. No complaints at this time. Pt aware of NPO status and plan for cardiac cath in AM. Urinal provided. Resting comfortably in bed. Nuris Lester RN - 05/20/2022 1:09 AM EDT Pt. Transferred to [facility]. RN accompanied patient to floor and handed off to [facility] RN Dottie Hill APRN - 05/19/2022 10:02 AM EDT Vascular Surgery Progress Note Koko Zamora is a 81 y.o. male with w new onset Afib who presents in transfer from [facility] with acute limb ischemia of [...] management following Dottie Hill APRN 05/19/2022 Pager: [phone] Emily Sauceda RN - 05/19/2022 6:28 AM EDT OUTCOME EVALUATION NOTE: OUTCOME SUMMARY: Patient AOx4, VSS on RA. Afib on tele. HR controlled w/ PRN metop, given x2. Denies CP, SOB, n/v. See flowsheets for NVC. Dressings to LLE CDI, prevena WV to groin intact. Voiding to urinal. LBM SUPERINTENDENT SALES, patient stating he will maybe try the [...] adequately without difficulty to bedside urinal. LBM SUPERINTENDENT SALES. Up to chair this AM with nursing staff. Worked with PT, tolerated well. Diet changed to regular at 1800.Plan is for cardiac cath on Friday. PLAN MOVING FORWARD: Bleeding precautions Pain management neurovascular checks PT/OT botany laboratory assistant INDIVIDUALIZED FALL PREVENTION INTERVENTIONS: Patient-specific [...] onset Afib who presents in transfer from [facility] with acute limb ischemia of [...] mL Intravenous BID ??? PHENobarbitaL 0.12 mg/kg/dose ([place]) Oral BID ??? thiamine 100 mg Oral [...] management following Dottie Hill APRN 05/18/2022 Pager: [phone] Brannon Isaacs, PT - 05/18/2022 10:00 AM [...] IR Biopsy Spine 07/20/2019 Bobby [place] MD [facility] INTERVENTIONL RAD ??? IR VERTEBROPLASTY LUMBAR MULTIPLE LEVELS 07/20/2019 IR Vertebroplasty Lumbar Multiple Levels 07/20/2019 Bobby [place] MD [facility] INTERVENTIONL RAD ??? IR VERTEBROPLASTY THORACIC SINGLE LEVEL 10/25/2020 IR Vertebroplasty Thoracic Single Level 10/25/2020 Matt Chisholm MD [facility] INTERVENTIONL RAD ??? PRO EMBLC/THRMBC FEMORAL POPLITEAL AORTO-ILIAC ARTERY Left 05/15/2022 EMBOLECTOMY OR THROMBECTOMY, FEMOROPOPLITEAL, AORTOILIAC ARTERY BY LEG INCISION (WRVU 19.48) performed by Fito Summers MD at [facility] MAIN OR Social History: Pt [...] in this evaluation. Time IN / OUT: 2538-6036 Total Minutes, Physical Therapy: 30 Billing Code: Basilio Isaacs, PT Pager: [phone] Physical Therapy Inpatient Rehabilitation Department Emily Sauceda RN - 05/18/2022 4:34 AM EDT OUTCOME EVALUATION NOTE: OUTCOME SUMMARY: Patient AOx4, VSS on 2LNC. Afib on tele. HR above 120, MD aware, PRN IV metop given x1, HR returned to 90's-low 100's. Denies CP, SOB, n/v. See flowsheets for NVC. Dressings to LLE CDI, prevena WV to groin intact. Voiding to urinal. LBM SUPERINTENDENT SALES. Heparin gtt therapeutic. Pain controlled. Patient sleeping [...] adequately without difficulty to bedside urinal. LBM SUPERINTENDENT SALES. Patient not OOB this shift. Currently NPO awaitingprocedure in laborer bituminous paving. PLAN MOVING FORWARD: Bleeding precautions Pain management neurovascular checks PT/OT NPO for laborer bituminous paving INDIVIDUALIZED FALL PREVENTION INTERVENTIONS: Patient-specific fall risk [...] the Emergency Department as a transfer from [facility] with left lower extremity limb ischemia. He went to [facility] and was startedon heparin and [...] he will will be going to the laborer bituminous paving for evaluation. Will defer PT eval at present but will see as ordered post cardiac catheritizaton. Social Hx:Pt lives with his Ursula in [place], [place] in a 2 level home in [...] WBAT LLE LISBET HERMAN PT Pager # [phone] In-Pt Rehab Medicine Dottie Hill APRN - 05/17/2022 7:42 AM EDT Vascular Surgery Progress Note Koko Zamora is a 81 y.o. male with w new onset Afib who presents in transfer from [facility] with acute limb ischemia of [...] mL Intravenous BID ??? PHENobarbitaL 0.24 mg/kg/dose ([place]) Oral BID Followed by ??? [START ON 05/18/2022] PHENobarbitaL 0.12 mg/kg/dose ([place]) Oral BID ??? thiamine 100 mg Oral [...] reviewed in chart Assessment & Plan: Koko Zaomra is a 81 y.o. male 2 Days [...] management following Dottie Hill APRN 05/17/2022 Pager: [phone] Sary Dos Santos, RN - 05/17/2022 12:16 [...] PM EDT Vascular Surgery Progress Note Koko Zaomra is a 81 y.o. male with w new onset Afib who presents in transfer from [facility] with acute limb ischemia of [...] mL Intravenous BID ??? PHENobarbitaL 0.48 mg/kg/dose ([place]) Oral BID Followed by ??? [START ON 05/17/2022] PHENobarbitaL 0.24 mg/kg/dose ([place]) Oral BID Followed by ??? [START ON 05/18/2022] PHENobarbitaL 0.12 mg/kg/dose ([place]) Oral BID ??? thiamine 100 mg Oral [...] management following Edward Rodríguez MD 05/16/2022 Pager: [phone] Sary Dos Santos RN - 05/16/2022 12:52 [...] intact in extremities, bilaterally symmetric. AP Koko Zamoar is a 81 y.o. male status post: [...] 2129 Hand off to DION Ramirez 3 birch run documented in this encounter H&P Notes Kerry [...] onset Afib who presents in transfer from [facility] with acute limb ischemia of [...] IR Biopsy Spine 07/20/2019 Bobby [place] MD [facility] INTERVENTIONL RAD ??? IR VERTEBROPLASTY LUMBAR MULTIPLE LEVELS 07/20/2019 IR Vertebroplasty Lumbar Multiple Levels 07/20/2019 Bobby [place] MD [facility] INTERVENTIONL RAD ??? IR VERTEBROPLASTY THORACIC SINGLE LEVEL 10/25/2020 IR Vertebroplasty Thoracic Single Level 10/25/2020 Matt Chisholm MD [facility] INTERVENTIONL RAD Social Hx: Social [...] Refill ??? fluticasone propionate (FLONASE) 50 mcg/actuation [place], Suspension as needed. ??? fluorouraciL (EFUDEX) 5 [...] a B case. Marked and consented. Tim Cihcas MD 05/15/2022 Pager: [phone] documented in this encounter ED Notes Lc Harris PA - 05/15/2022 1:20 PM EDT ED Provider Note HPI: Koko Zamora is a 81 y.o. male with history of atrial fibrillation not on anticoagulation, and GI bleeding who presents to the Emergency Department as a transfer from [facility] with left lower extremity limb ischemia. Patient says that the symptoms started roughly 630 this morning when he developed severe pain in his left lower extremity. He went to [facility] and was started on heparin [...] src: Oral SpO2: 94 % O2 Device: CO O2 Flow Rate (L/min): 2 L/min Physical [...] lower extremity earlier today and went to [facility] where it was determined that he had ischemia of the left lower extremity. Vascular surgery [facility] was contacted and he was transferred [...] orders before pt. Arrival. Pt. Arrived at [facility] by EMS at 1150, vascular team at [...] in an outpatient cardiac rehabilitation program at [facility] was discussed. Patient agrees to a referral to this program. Timing will depend on his recovery from Vascular surgery. He is going home w/VNA PT. I gave him the brochure for the program at [facility] for future reference. Care Management [...] information for follow-up [facility], [place] [address] [place] [address] Transportation: family or friend will provide Functional [...] *No Product type* / Secondary Insurance: [facility] Prescription Coverage: Yes This plan was formulated with input from patient and team. All are in agreement with plan. [facility] for initial IMM. Shawn (Satish) DION López RN/CM - Cellphone: [phone] Pager: [phone] Covering Service RN/CM Plan of Care - [...] catheterization, transferred in hospital bed accompanied by Dust Handler RN, remains on telemetry monitoring. Heparin gtt [...] *No Product type* / Secondary Insurance: [facility] Last Physical Therapy Recommendation: home with home health, home with supervision with None Last Occupational Therapy Recommendation: with Plan for discharge is: Home w/ Services Outpatient Agency/Support Group Needs: None Home Health Services: Registered Nurse, Physical Therapy, Occupational Therapy Agency Referrals: I have met with the patient to: ?? discuss discharge planning needs. ?? provide the [facility], Office of Care Management letter from the Dental Surgery Doctor pertaining to rehab referrals. ?? provide a letter describing our affiliations within the [facility] and educate about their right to choose where referrals are sent. ?? provide a list of Home Health Agencies / Durable Medical Equipment vendors which serve their preferred geographic area. ?? provided patient with [facility] Star Quality Rating handout. They have requested referrals to: [facility] [address] [place] [address] Note routed to a Floor Cashier who will communicate referrals to facilities and provide any required information. Transportation: family or friend will provide Barriers to discharge: None Plan going forward: Patient is going for a cardiac cath today and plan will come from there. Patientwas recently seen by PT and they recommend VNA at time of discharge. [facility] was routed and pendedat this time. Care Management will continue to follow and assist with discharge planning and coordination of care as indicated. Anticipated Date of Discharge: 05/21/2022 Nataly RICHMOND RN Phone: [phone] Pager: [phone] Plan of Care - Laney Atkins RN [...] original note were not included. [facility] [address] [address] INPATIENT CARDIOLOGY CONSULT NOTE Date of Consultation: 05/17/2022 Admit Date: 05/15/2022 Hospital Day 2 days Reason for Consult: New afib Active Problems: Active Hospital Problems Diagnosis Limb ischemia Resolved Hospital Problems No resolved problems to display. HPI: Koko Zamora is a 81 y.o. male with a PMHx significant for MVP (s/p MV repair 2000), tobacco use, HLD, who presented to [facility] from OSH on 05/15 with acute limb ischemia of LLE and was found to be in atrial fibrillation. Patient had sudden onset LLE pain on 05/[address] [facility], where he was started on heparin and transferred to [facility]. Upon arrival to [facility], patient was in atrial fib with RVR [...] IR Biopsy Spine 07/20/2019 Bobby [place] MD [facility] INTERVENTIONL RAD IR VERTEBROPLASTY LUMBAR MULTIPLE LEVELS 07/20/2019 IR Vertebroplasty Lumbar Multiple Levels 07/20/2019 Bobby [place] MD [facility] INTERVENTIONL RAD IR VERTEBROPLASTY THORACIC SINGLE LEVEL 10/25/2020 IR Vertebroplasty Thoracic Single Level 10/25/2020 Matt Chisholm MD [facility] INTERVENTIONL RAD PRO EMBLC/THRMBC FEMORAL POPLITEAL AORTO-ILIAC ARTERY Left 05/15/2022 EMBOLECTOMY OR THROMBECTOMY, FEMOROPOPLITEAL, AORTOILIAC ARTERY BY LEG INCISION (WRVU 19.48) performed by Fito Summers MD at [facility] MAIN OR Allergies Allergen Reactions Aspirin Other (See Comments) GI bleed Out-Patient Medications: Medications Prior to Admission Medication Sig Dispense Refill Last Dose fluorouraciL (EFUDEX) 5 % Cream daily. CRESTOR 40 mg Tablet Take 40 mg by mouth daily. fluticasone propionate (FLONASE) 50 mcg/actuation [place], Suspension as needed. ascorbic acid, vitamin C, [...] 5 mL Intravenous BID PHENobarbitaL 0.24 mg/kg/dose ([place]) Oral BID Followed by [START ON 05/18/2022] PHENobarbitaL 0.12 mg/kg/dose ([place]) Oral BID thiamine 100 mg Oral Daily folic acid 1,000 mcg Oral Daily multivitamin with minerals 1 tablet Oral Daily heparin (porcine) infusion 1,200 Units/hr (05/17/22 8891) Family History: No family history on file. [...] to Hosp-Admission (Current) from 05/15/2022 in 3 [facility] Office Visit from 04/17/2021 in Pain and Spine Center at [facility] Weight 79.8 kg (175 lb 14.8 oz) [...] continue to follow Anne-Marie Larson MD Pager [phone] Clinic: [phone] 05/17/22 6:22 PM Initial Assessments - Ifrah [...] spouse would be surrogate decision maker per [place] surrogate decision making law. (Only good for 180 days) Any patient receiving care at [facility] must abide by [place] law. The hierarchy for surrogate decision making [...] (i) The agent with financial power of securities attorney or a conservator appointed in accordance [...] raised toilet seat Home Address confirmed as: [address] [place] [id number] Social & Family Supports: All names listed below confirmed with patient as Incorrect. Will notify toni to correct. Wifes address is same as and phone is [phone]. Extended Emergency Contact Information Primary Emergency Contact: Ursula Zamora Address: [address] [place] [address] [address] [place] [address] [facility] Relation: Spouse Current Care Provided [...] *No Product type* / Secondary Insurance: [facility] Prescription Coverage: Yes Preferred Pharmacy: [id number] - [place], [place] - [address] [facility] [address] [facility] [address] [facility] - [place], [place] - [address] [facility] [address] [facility] [address] [place] Status: Patient is a : unable to assess Primary Care Provider: Bobby Das MD [phone] Patient/Caregiver Goals of Treatment: to walk again Potential Needs for Transition of Care: none noted per 05/16 IDR Transportation: family will provide Transportation Anticipated: family or friend will provide Concerns to be Addressed: no discharge needs identified Assessment: Patient is admitted to vascular surg service for left lower extremity limb ischemia Plan: Per PT OT recommendations . Has used [facility] in the past. A member of the Care Management team will continue to monitor progress, follow for continuity of care and assist with transition of care planning. Ifrah Bell RN BSN Driver'S License Reviewing OfficerBulk System Operator of Care Management Pager [phone] Brief Op Note - Erin Garza MD - 05/15/2022 5:04 PM EDT Brief Operative Note Patient Name: Koko Zamora : [id number] MR#: [id number] Case Date: 05/15/2022 Surgeon: Surgeon(s) and Role: [...] Garza MD - 05/15/2022 2:08 PM EDT [facility] Operative Note Patient Name: Koko Zamora : [id number] MR#: [id number] Case Date: 05/15/2022 Surgeon: Surgeon(s) and Role: [...] with damp to dry 4x4, kerlix and sharny. The patient was extubated and taken to [...] 08/08/2022 Office Visit Gastroenterology Negra Collins MD [facility] GASTROENTEROLOGY DEPT [place], [place] [address] (Wo rk) 09/05/2022 Appointment Cardiology Trinity Ried MD [facility] CARDIOLOGY [place], [place] [address] (Wo rk) 09/05/2022 Office Visit Cardiology Trinity Reid MD [facility] CARDIOLOGY [place], [place] [address] (Wo rk) Scheduled Referrals Name [...] Component Value Ref Test Analysis Performed At [facility] Range Method Time Signature VB Text Department: Vascular Surgery Lab VASCUBASE Report Patient: [id number] (KOKO ZAMORA) CPT: 59929 Referring Physician: FITO SUMMERS ?? Phone: Indications: s/p L GENERAL FOUNDRY WORKER endart. Diabetes mellitus: no Findings: Right ?Pressure [...] P athologist Signature Heparin UFH 0.42 IU/mL [facility] LABORATORY Comment: Heparin (anti-Xa) levels should [...] Organization Address City/State/[place] [address] Differential, Automated (05/21/2022 6:15 AM EDT) P athologist Signature Neutrophils % 58.8 % [facility]OR[facility] Neutr Abs (ANC) 3.97 1.70 - [facility] 6.10 [facility] x10(3)[facility] LABORATORY Lymphocytes % 25.2 % [facility] Lymphocytes Abs 1.7 0.9 - 3.2 [facility] x10(3)[facility] LABORATORY Monocytes % 12.9 % [facility] Monocyte Abs 0.9 0.3 - 0.9 [facility] x10(3)[facility] LABORATORY Eosinophils % 2.1 % [facility] Eosinophils Abs 0.1 0.0 - 0.4 [facility] x10(3)[facility] LABORATORY Basophils % 0.4 % [facility] Basophils Abs 0.0 0.0 - 0.1 [facility] x10(3)[facility] LABORATORY Immature Gran % 0.60 % [facility] Comment: Immature granulocytes(IG's)percentage an d absolute count will include metamyelocytes, myelocytes, and promyelo cytes. Blood smears from CBCs yielding IG's will be scanned manually for concor dance. If this scan disagrees with the automated IG or if promyelocytes are not ed, a manual differential will be performed. Rain Gran Abs 0.04 0.00 - 0.04 x10(3)/[facility] LABORATORY Specimen Anatomical Collection Method Collection Time Receive d Time (Source) Location / / Volume Laterality Blood 05/21/2022 6:15 AM 2 6:38 EDT AM EDT Resulting Agency Comment Spec In Lab Edward Rodríguez MD HEMATOLOGY ORDERABLES Performing Organization Address City/State/[place] [address] (ABNORMAL) Hemogram (05/21/2022 6:15 AM EDT) [facility] gist Method Time Signature WBC 6.8 4.0 - 9.5 [facility] x10(3)/[facility] LABORATORY RBC 3.59 (L) 4.58 - [facility]54 [facility] x10(6)/[facility] LABORATORY Hemoglobin 11.8 (L) 13.7 - [facility] 16.5 g/dL [facility] LABORATORY Hematocrit 34.5 (L) 40.5 - [facility] 48.5 % [facility] LABORATORY MCV 96.1 (H) 82.9 - [facility] 93.1 [facility] LABORATORY MCH 32.9 (H) 27.5 - [facility] 32.1 pg [facility] LABORATORY MCHC 34.2 32.0 - [facility] 35.7 g/dL [facility] LABORATORY Platelets 198 145 - 357 [facility] x10(3)/[facility] LABORATORY RDWSD 44.9 36.0 - [facility] 45[facility]0 [facility] LABORATORY RDWCV 12.6 11.4 - [facility] 13.8 % [facility] LABORATORY MPV 10.0 7.6 - 12.9 [facility] LABORATORY nRBC % Auto 0.3 % [facility] LABORATORY nRBC Abs Auto 0.020 (H) 0.000 - [facility] 0.000 [facility] x10(3)/[facility] LABORATORY Specimen Anatomical Collection Method Collection Time Receive d Time (Source) Location / / Volume Laterality Blood 05/21/2022 6:15 AM 2 6:38 EDT AM EDT Resulting Agency Comment Spec In Lab Edward Rodríguez MD HEMATOLOGY ORDERABLES Performing Organization Address City/State/[place] [address] EKG 12 Lead (05/20/2022 7:04 PM EDT) Component Value Ref Range Test Analysis Performed Pathologis t Method Time At Signature Ventricular rate 101 BPM MUSE SYSTEM QRS Duration 116 ms MUSE SYSTEM Q-T Interval 378 ms MUSE SYSTEM QTC Calculated 490 ms MUSE SYSTEM (Bezet) Calculated R [place] -53 degrees MUSE SYSTEM Calculated T [place] 101 degrees MUSE SYSTEM INTERPRETATION Atrial fibrillation [...] SYSTEM - 05/20/2022 7:09 PM ED T ?[facility] ? Cardiac Cathete rization/Intervention Report ? Patient Name: Koko Zamora. ? Procedure Date: 05/20/2022 ? A #: [id number] ? Primary Physician: Abundio Servin ? Case #: [id number] ? File Name: [id number] ? Catheterization Order Number: [id number] ? [facility] ? Final Report [place], [place] ? Patient Name: ? Koko J. Klarissa uson ? ID#: ?[id number] ? : ?1940 ? Procedure Date: ? May 20, 2022 ?Case #: ? [id number] ? Room: ? 1 ? Case Physician: ? Abundio roldan, Fabienne ? Start: ?17:16 ? Admission: ??05/15/2022 ? [...] procedure was Urgent. The indication for ?the laborer bituminous paving visit is cardiomyo nita. Chest pain symptom [...] ?3.5 guiding catheter and a 3.[address] ??20 Mhz. ??Imaging ?was successful. ??Image [...] A premounted 2. 75 x 30 mm [place] (AMPARO) was deployed ? with a maximum [...] may require ?modification of this regimen. C Counts include 234 beds at the [facility] Interventional Cardiology for ?questions. ?The 1 year [...] these procedures. ?The attending physician was latoya quezada for the entire procedure. ?Dr. Abundio Servin [...] 123 65 - 199 [facility] mg/dL [facility] LABORATORY Comment: Supplemental ranges: <140 mg/dL before meals <180 mg/dL all other times of the day Specimen Anatomical Collection Method Collection Time Receive d Time (Source) Location / / Volume Laterality Blood 05/20/2022 5:42 PM 5:42 EDT PM EDT Fito Summers MD POINT OF CARE TEST ORDERABLE S Performing Organization Address City/State/[place] [address] (ABNORMAL) BMP w/fasting Glucose (05/20/2022 10:50 AM EDT) P athologist Signature Glucose 152 (H) 65 - 99 [facility] Fasting mg/dL [facility] LABORATORY Comment: ?Fasting* Glucose Interpretive [...] of Diabetes Mellitus, Position Statement from the [employer]. ??Diabete s Care, Volume 33, [...] estions. Chloride 103 98 - 107 mmol/L [facility] LABORATORY CO2 24 22 - 31 mmol/L [facility] LABORATORY Anion Gap 10 5 - 15 mmol/L [facility] LABORATORY Calcium 8.7 8.5 - 10.5 mg/dL [facility] LABORATORY Estimated GFR 97 >=60 mL/min/1.73 m?? [facility] LABORATORY Comment: This patient's estimated GFR [...] Organization Address City/State/[place] [address] Heparin (unfractionated) Level (05/20/2022 5:02 AM EDT) athologist Signature Heparin UFH 0.57 IU/mL [facility] LABORATORY Comment: Heparin (anti-Xa) levels should [...] Organization Address City/State/[place] [address] (ABNORMAL) Differential, Automated (05/20/2022 5:02 AM EDT) [facility] Method Time Signature Neutrophils % 58.1 % [facility] LABORATORY Neutr Abs (ANC) 4.52 1.70 - [facility] 6.10 [facility] x10(3)/[facility] LABORATORY Lymphocytes % 24.1 % [facility] LABORATORY Lymphocytes Abs 1.9 0.9 - 3.2 [facility] x10(3)/[facility] LABORATORY Monocytes % 13.8 % [facility] LABORATORY Monocyte Abs 1.1 (H) 0.3 - 0.9 [facility] x10(3)/[facility] LABORATORY Eosinophils % 2.6 % [facility] LABORATORY Eosinophils Abs 0.2 0.0 - 0.4 [facility] x10(3)/[facility] LABORATORY Basophils % 0.8 % [facility] LABORATORY Basophils Abs 0.1 0.0 - 0.1 [facility] x10(3)/[facility] LABORATORY Immature Gran % 0.60 % [facility] LABORATORY Comment: Immature granulocytes(IG's)percentage an d absolute count will include metamyelocytes, myelocytes, and promyelo cytes. Blood smears from CBCs yielding IG's will be scanned manually for concor dance. If this scan disagrees with the automated IG or if promyelocytes are not ed, a manual differential will be performed. Rain Gran Abs 0.05 (H) 0.00 - 0.04 x10(3)/[facility] LABORATORY Specimen Anatomical Collection Method Collection Time Receive d Time (Source) Location / / Volume Laterality Blood 05/20/2022 5:02 AM 5:19 EDT AM EDT Resulting Agency Comment Spec In Lab Edward Rodríguez MD HEMATOLOGY ORDERABLES Performing Organization Address City/State/[place] [address] (ABNORMAL) Hemogram (05/20/2022 5:02 AM EDT) Analysis Performed At Patho logist Time Signature WBC 7.8 4.0 - 9.5 [facility] x10(3)/[facility] LABORATORY RBC 3.53 (L) 4.58 - [facility] 5.54 [facility] x10(6)/[facility] LABORATORY Hemoglobin 11.4 (L) 13.7 - [facility] 16.5 g/dL [facility] LABORATORY Hematocrit 34.3 (L) 40.5 - [facility] XIAO 48.5 % [facility] LABORATORY MCV 97.2 (H) 82.9 - [facility] 93.1 [facility] LABORATORY MCH 32.3 (H) 27.5 - [facility] XIAO 32.1 pg [facility] LABORATORY MCHC 33.2 32.0 - [facility] XIAO 35.7 g/dL [facility] LABORATORY Platelets 181 145 - 357 [facility] x10(3)/[facility] LABORATORY RDWSD 46.4 (H) 36.0 - [facility] XIAO 45.0 [facility] LABORATORY RDWCV 13.0 11.4 - [facility] XIAO 13.8 % [facility] LABORATORY MPV 10.4 7.6 - 12.9 [facility] LABORATORY nRBC % Auto 0.0 % [facility] LABORATORY nRBC Abs Auto 0.000 0.000 - [facility] 0.000 [facility] x10(3)/[facility] LABORATORY Specimen Anatomical Collection Method Collection Time Receive d Time (Source) Location / / Volume Laterality Blood 05/20/2022 5:02 AM 2 5:19 EDT AM EDT Resulting Agency Comment Spec In Lab Edward Rodríguez MD HEMATOLOGY ORDERABLES Performing Organization Address City/[facility]/ZIP Code Phon e Number [place] [phone] LAB[address] Heparin (unfractionated) Level (05/19/2022 3:26 AM EDT) P athologist Signature Heparin UFH 0.59 IU/mL [facility] LABORATORY Comment: Heparin (anti-Xa) levels should [...] Summers MD HEMATOLOGY ORDERABLES Performing Organization Address City/[facility]/ZIP Code Phon e Number [address] (ABNORMAL) Differential, Automated (05/19/2022 3:26 AM EDT) Patholo gist Method Time Signature Neutrophils % 62.1 % [facility] LABORATORY Neutr Abs (ANC) 4.59 1.70 - [facility] 6.10 [facility] x10(3)/[facility] LABORATORY Lymphocytes % 22.1 % [facility] LABORATORY Lymphocytes Abs 1.6 0.9 - 3.2 [facility] x10(3)/[facility] LABORATORY Monocytes % 13.5 % [facility] LABORATORY Monocyte Abs 1.0 (H) 0.3 - 0.9 [facility] x10(3)/[facility] LABORATORY Eosinophils % 1.3 % [facility] LABORATORY Eosinophils Abs 0.1 0.0 - 0.4 [facility] x10(3)/[facility] LABORATORY Basophils % 0.5 % [facility] LABORATORY Basophils Abs 0.0 0.0 - 0.1 [facility] x10(3)/[facility] LABORATORY Immature Gran % 0.50 % [facility] LABORATORY Comment: Immature granulocytes(IG's)percentage an d absolute count will include metamyelocytes, myelocytes, and promyelo cytes. Blood smears from CBCs yielding IG's will be scanned manually for concor dance. If this scan disagrees with the automated IG or if promyelocytes are not ed, a manual differential will be performed. Rain Gran Abs 0.04 0.00 - 0.04 x10(3)/[facility] LABORATORY Specimen Anatomical Collection Method Collection Time Receive d Time (Source) Location / / Volume Laterality Blood 05/19/2022 3:26 AM 2 3:59 EDT AM EDT Resulting Agency Comment Spec In Lab Edward Rodríguez MD HEMATOLOGY ORDERABLES Performing Organization Address City/State/[place] [address] (ABNORMAL) Hemogram (05/19/2022 3:26 AM EDT) Analysis Performed At Patho logist Time Signature WBC 7.4 4.0 - 9.5 [facility] x10(3)/[facility] LABORATORY RBC 3.74 (L) 4.58 - [facility] 5.54 [facility] x10(6)/[facility] LABORATORY Hemoglobin 12.1 (L) 13.7 - [facility] 16.5 g/dL [facility] LABORATORY Hematocrit 36.4 (L) 40.5 - [facility] 48.5 % [facility] LABORATORY MCV 97.3 (H) 82.9 - [facility] 93.1 [facility] LABORATORY MCH 32.4 (H) 27.5 - [facility] 32.1 pg [facility] LABORATORY MCHC 33.2 32.0 - [facility] [place] 35.7 g/dL [facility] LABORATORY Platelets 168 145 - 357 [facility] x10(3)/[facility] LABORATORY RDWSD 46.9 (H) 36.0 - [facility] [place] 45.0 [facility] LABORATORY RDWCV 13.0 11.4 - [facility] 13.8 % [facility] LABORATORY MPV 10.5 7.6 - 12.9 [facility] LABORATORY nRBC % Auto 0.0 % [facility] LABORATORY nRBC Abs Auto 0.000 0.000 - [facility] 0.000 [facility] x10(3)/[facility] LABORATORY Specimen Anatomical Collection Method Collection Time Receive d Time (Source) Location / / Volume Laterality Blood 05/19/2022 3:26 AM 2 3:59 EDT AM EDT Resulting Agency Comment Spec In Lab Edward Rodríguez MD HEMATOLOGY ORDERABLES Performing Organization Address City/State/[place] [address] TSH (05/18/2022 8:00 PM EDT) P athologist Signature TSH 2.27 0.27 - 4.20 [facility] mcIU/mL [facility] LABORATORY Comment: Reference Interval (mcIU/mL): Females: ??First Trimester: 0.23-3.88 ??Second Trimester: 0.22-3.90 ??Third Trimester: 0.44-4.66 Specimen Anatomical Collection Method Collection Time Receive d Time (Source) Location / / Volume Laterality Blood 05/18/2022 8:00 PM 8:06 EDT PM EDT Resulting Agency Comment Spec In Lab Fito Summers MD CHEMISTRY ORDERABLES Performing Organization Address City/[facility]/ZIP Code Phon e Number [place] [phone] [facility] LABORATORY Drive (ABNORMAL) Differential, Automated (05/18/2022 3:34 AM EDT) [facility] Method Time Signature Neutrophils % 67.2 % [facility] LABORATORY Neutr Abs (ANC) 5.89 1.70 - [facility] 6.10 [facility] x10(3)/[facility] LABORATORY Lymphocytes % 17.1 % [facility] LABORATORY Lymphocytes Abs 1.5 0.9 - 3.2 [facility] x10(3)/[facility] LABORATORY Monocytes % 13.6 % [facility] LABORATORY Monocyte Abs 1.2 (H) 0.3 - 0.9 [facility] x10(3)/[facility] LABORATORY Eosinophils % 1.0 % [facility] LABORATORY Eosinophils Abs 0.1 0.0 - 0.4 [facility] x10(3)/[facility] LABORATORY Basophils % 0.6 % [facility] LABORATORY Basophils Abs 0.0 0.0 - 0.1 [facility] x10(3)/[facility] LABORATORY Immature Gran % 0.50 % [facility] LABORATORY Comment: Immature granulocytes(IG's)percentage an d absolute count will include metamyelocytes, myelocytes, and promyelo cytes. Blood smears from CBCs yielding IG's will be scanned manually for concor dance. If this scan disagrees with the automated IG or if promyelocytes are not ed, a manual differential will be performed. Rain Gran Abs 0.04 0.00 - 0.04 x10(3)/[facility] LABORATORY Specimen Anatomical Collection Method Collection Time Receive d Time (Source) Location / / Volume Laterality Blood 05/18/2022 3:34 AM 3:48 EDT AM EDT Resulting Agency Comment Spec In Lab Edward Rodríguez MD HEMATOLOGY ORDERABLES Performing Organization Address City/[facility]/[place] [address] (ABNORMAL) Hemogram (05/18/2022 3:34 AM EDT) Analysis Performed At Patho logist Time Signature WBC 8.8 4.0 - 9.5 [facility] x10(3)/[facility] LABORATORY RBC 3.45 (L) 4.58 - [facility] 5.54 [facility] x10(6)/[facility] LABORATORY Hemoglobin 11.2 (L) 13.7 - [facility] 16.5 g/dL [facility] LABORATORY Hematocrit 33.0 (L) 40.5 - [facility] 48.5 % [facility] LABORATORY MCV 95.7 (H) 82.9 - [facility] 93.1 [facility] LABORATORY MCH 32.5 (H) 27.5 - [facility] 32.1 pg [facility] LABORATORY MCHC 33.9 32.0 - [facility] 35.7 g/dL [facility] LABORATORY Platelets 130 (L) 145 - 357 [facility] x10(3)/[facility] LABORATORY RDWSD 46.2 (H) 36.0 - [facility] 45.0 [facility] LABORATORY RDWCV 13.2 11.4 - [facility] 13.8 % [facility] LABORATORY MPV 10.8 7.6 - 12.9 [facility] LABORATORY nRBC % Auto 0.0 % [facility] LABORATORY nRBC Abs Auto 0.000 0.000 - [facility] 0.000 [facility] x10(3)/[facility] LABORATORY Specimen Anatomical Collection Method Collection Time Receive d Time (Source) Location / / Volume Laterality Blood 05/18/2022 3:34 AM 3:48 EDT AM EDT Resulting Agency Comment Spec In Lab Edward Rodríguez MD HEMATOLOGY ORDERABLES Performing Organization Address City/State/[place] [address] Heparin (unfractionated) Level (05/18/2022 3:34 AM EDT) P athologist Signature Heparin UFH 0.59 IU/mL [facility] LABORATORY Comment: Heparin (anti-Xa) levels should [...] Summers MD HEMATOLOGY ORDERABLES Performing Organization Address City/[facility]/[place] [address] Magnesium (05/17/2022 3:33 AM EDT) athologist Signature Magnesium 0.76 0.69 - 1.07 [facility] mmol/L [facility] LABORATORY Specimen Anatomical Collection Method Collection Time Receive d Time (Source) Location / / Volume Laterality Blood Venous Draw / 05/17/2022 3:33 AM 05/17/20 4:05 Unknown EDT AM EDT Resulting Agency Comment Spec In Lab Dottie Hill APRN CHEMISTRY ORDERABLES Performing Organization Address City/[facility]/[place] [address] (ABNORMAL) Basic Metabolic Panel (non-fasting) (05/17/2022 3:33 AM EDT) athologist Signature Glucose Lvl 158 65 - 199 [facility] mg/dL [facility] LABORATORY Comment: Diabetes: >=200 mg/dL [...] estions. Chloride 102 98 - 107 mmol/L [facility] LABORATORY CO2 25 22 - 31 mmol/L [facility] LABORATORY Anion Gap 10 5 - 15 mmol/L [facility] LABORATORY Calcium 8.4 (L) 8.5 - 10.5 mg/dL [facility] LABORATORY Estimated GFR 92 >=60 mL/min/1.73 m?? [facility] LABORATORY Comment: This patient's estimated GFR [...] Organization Address City/State/[place] [address] (ABNORMAL) Differential, Automated (05/17/2022 3:33 AM EDT) [facility] Method Time Signature Neutrophils % 65.5 % [facility] LABORATORY Neutr Abs (ANC) 6.84 (H) 1.70 - [facility] 6.10 [facility] x10(3)/[facility] LABORATORY Lymphocytes % 19.7 % [facility] LABORATORY Lymphocytes Abs 2.1 0.9 - 3.2 [facility] x10(3)/[facility] LABORATORY Monocytes % 13.1 % [facility] LABORATORY Monocyte Abs 1.4 (H) 0.3 - 0.9 [facility] x10(3)/[facility] LABORATORY Eosinophils % 0.6 % [facility] LABORATORY Eosinophils Abs 0.1 0.0 - 0.4 [facility] x10(3)/[facility] LABORATORY Basophils % 0.6 % [facility] LABORATORY Basophils Abs 0.1 0.0 - 0.1 [facility] x10(3)/[facility] LABORATORY Immature Gran % 0.50 % [facility] LABORATORY Comment: Immature granulocytes(IG's)percentage an d absolute count will include metamyelocytes, myelocytes, and promyelo cytes. Blood smears from CBCs yielding IG's will be scanned manually for concor dance. If this scan disagrees with the automated IG or if promyelocytes are not ed, a manual differential will be performed. Rain Gran Abs 0.05 (H) 0.00 - 0.04 x10(3)/[facility] LABORATORY Specimen Anatomical Collection Method Collection Time Receive d Time (Source) Location / / Volume Laterality Blood 05/17/2022 3:33 AM 3:53 EDT AM EDT Resulting Agency Comment Spec In Lab Edward Rodríguez MD HEMATOLOGY ORDERABLES Performing Organization Address City/State/[place] [address] (ABNORMAL) Hemogram (05/17/2022 3:33 AM EDT) Analysis Performed At Patho logist Time Signature WBC 10.4 (H) 4.0 - 9.5 [facility] x10(3)/[facility] LABORATORY RBC 3.72 (L) 4.58 - [facility] 5.54 [facility] x10(6)/[facility] LABORATORY Hemoglobin 12.0 (L) 13.7 - [facility] 16[facility] g/dL [facility] LABORATORY Hematocrit 36.4 (L) 40.5 - [facility] [place] 48.5 % [facility] LABORATORY MCV 97.8 (H) 82.9 - [facility] [place] 93.1 [facility] LABORATORY MCH 32.3 (H) 27.5 - [facility] 32.1 pg [facility] LABORATORY MCHC 33.0 32.0 - [place] [place] 35.7 g/dL [facility] LABORATORY Platelets 149 145 - 357 [facility] x10(3)/[facility] LABORATORY RDWSD 48.7 (H) 36.0 - [facility] [place] 45.0 [facility] LABORATORY RDWCV 13.5 11.4 - [facility] 13.[facility] % [facility] LABORATORY MPV 10.6 7.6 - 12.9 [facility] LABORATORY nRBC % Auto 0.0 % [facility] LABORATORY nRBC Abs Auto 0.000 0.000 - [facility] 0.000 [facility] x10(3)/[facility] LABORATORY Specimen Anatomical Collection Method Collection Time Receive d Time (Source) Location / / Volume Laterality Blood 05/17/2022 3:33 AM 3:53 EDT AM EDT Resulting Agency Comment Spec In Lab Edward Rodríguez MD HEMATOLOGY ORDERABLES Performing Organization Address City/State/[place] [address] (ABNORMAL) Urinalysis Microscopic Exam (05/16/2022 11:15 PM EDT) P athologist Signature RBC UA 8 (H) 0 - 3 /HPF [facility] LABORATORY WBC UA 2 0 - 3 /HPF [facility] LABORATORY Specimen Anatomical Collection Method Collection Time Receive d Time (Source) Location / / Volume Laterality Clean Catch 05/16/2022 11:15 05/16/2022 Urine PM EDT 11:30 PM EDT Resulting Agency Comment Spec In Lab Barbie Ashraf MD URINE ORDERABLES Performing Organization Address City/State/[place] [address] (ABNORMAL) Urinalysis with reflex Culture (05/16/2022 11:15 PM EDT) Patholo gist Method Time Signature Glucose UA Negative Negative [facility] mg/dL [facility] LABORATORY Protein UA Negative Negative [facility] mg/dL [facility] LABORATORY Bilirubin UA Negative Negative [facility] mg/dL [facility] LABORATORY Comment: Clinical correlation required [...] LABORATORY Blood UA Small (A) Negative mg/dL [facility] LABORATORY Ketones UA Trace (A) Negative mg/dL [facility] LABORATORY Nitrite UA Negative Negative [facility] LABORATORY Leukocytes UA Negative Negative [facility] LABORATORY Appearance UA Clear Clear [facility] LABORATORY Spec [place] UA 1.021 1.005 - 1.030 [facility] LABORATORY Color UA Yellow Yellow [facility] LABORATORY Culture Reflexed No [facility] LABORATORY Specimen Anatomical Collection Method Collection Time Receive d Time (Source) Location / / Volume Laterality Clean Catch 05/16/2022 11:15 05/16/2022 Urine PM EDT 11:30 PM EDT Resulting Agency Comment Spec In Lab Fito Summers MD URINE ORDERABLES Performing Organization Address City/State/[place] [address] Heparin (unfractionated) Level (05/16/2022 10:59 PM EDT) P athologist Signature Heparin UFH 0.65 IU/mL [facility] LABORATORY Comment: Specimen drawn more than [...] Organization Address City/State/[place] [address] XR Chest One View [...] who have questions please contact the health specialist wound care that requested your imaging first. ? [...] ho have questions please contact the health specialist wound care that requested your imaging first. Fito Summers MD IMG DX ORDERABLES EKG 12 Lead (05/16/2022 8:57 PM EDT) Component Value Ref Range Test Analysis Performed Pathologis t Method Time At Signature Ventricular rate 117 BPM MUSE SYSTEM QRS Duration 112 ms MUSE SYSTEM Q-T Interval 346 ms MUSE SYSTEM QTC Calculated 482 ms MUSE SYSTEM (Bezet) Calculated R [place] -48 degrees MUSE SYSTEM Calculated T [place] 111 degrees MUSE SYSTEM INTERPRETATION Atrial fibrillation with rapid ventricular response MUSE SYSTEM Left anterior fascicular block Minimal voltage criteria for LVH, may be normal variant ( [place] product ) Nonspecific ST and T wave [...] Summers MD ECG ORDERABLES Performing Organization Address City/[facility]/ZIP Code Phon e Number MUSE SYSTEM Heparin (unfractionated) Level (05/16/2022 4:34 PM EDT) P athologist Signature Heparin UFH 0.53 IU/mL [facility] LABORATORY Comment: Heparin (anti-Xa) levels should [...] Summers MD HEMATOLOGY ORDERABLES Performing Organization Address City/[facility]/[place] [address] ECHOCARDIOGRAM COMPLETE W CONTRAST (05/16/2022 12:49 PM EDT) P athologist Signature EF 28 HEARTLAB SYSTEM Specimen (Source) Anatomical Collection Method Collection Time Re ceived Time Location / / Volume Laterality 05/16/2022 11:22 AM EDT Narrative HEARTLAB SYSTEM - 05/16/2022 1:54 PM EDT ?[facility] ?[address] ? [place] [address] ?Voice: ?Fax: ? Echocardiogram Report Name: KOKO ZAMORA J ?Study Date: 05/16/2022 11:22 AM ? Patient Location: 3WST [id number] B : 1940 ? Height: 67.5 in ? Account: [id number] Age: 81 yrs ? Weight: 176 lb Gender: Male ?BSA: 1.9 m2 Ordering Physician: FITO SUMMERS Referring Physician: MALI FLORIAN Performed By: Jolene Bernard RDCS Exam Location: [facility]. Interpretation Summary Left ventricle is [...] and LV systolic dysfunction are new. Procedure Complete-[id number]. Image enhancement Optiso n was used for [...] note might be different from the original. [facility] [address] [place] [address] Voice: Fax: Echocardiogram Report Name: KOKO ZMAORA Study Date: 05/2022 11:22 AM Patient Location: [facility] 0 303 : 1940 Height: 67.5 in Account: [id number] Age: 81 yrs Weight: 176 lb Gender: Male BSA: 1.9 m2 Ordering Physician: FITO SUMMERS Referring Physician: MALI FLORIAN Performed By: Jolene Bernard [facility] Exam Location: [facility]. Interpretation Summary Left ventricle is [...] and LV systolic dysfunction are new. Procedure Complete-[id number]. Image enhancement Optiso n was used for [...] (ABNORMAL) Differential, Automated (05/16/2022 3:01 AM EDT) [facility] Method Time Signature Neutrophils % 78.8 % [facility] LABORATORY Neutr Abs (ANC) 9.11 (H) 1.70 - [facility] 6.10 [facility] x10(3)/[facility] LABORATORY Lymphocytes % 9.4 % [facility] Lymphocytes Abs 1.1 0.9 - 3.2 [facility] x10(3)/[facility] LABORATORY Monocytes % 10.9 % [facility] Monocyte Abs 1.3 (H) 0.3 - 0.9 [facility] x10(3)/[facility] LABORATORY Eosinophils % 0.0 % [facility] Eosinophils Abs 0.0 0.0 - 0.4 [facility] x10(3)/[facility] LABORATORY Basophils % 0.3 % [facility] Basophils Abs 0.0 0.0 - 0.1 [facility] x10(3)/[facility] LABORATORY Immature Gran % 0.60 % [facility] LABORATORY Comment: Immature granulocytes(IG's)percentage an d absolute count will include metamyelocytes, myelocytes, and promyelo cytes. Blood smears from CBCs yielding IG's will be scanned manually for concor dance. If this scan disagrees with the automated IG or if promyelocytes are not ed, a manual differential will be performed. Rain Gran Abs 0.07 (H) 0.00 - 0.04 x10(3)/[facility] LABORATORY Specimen Anatomical Collection Method Collection Time Receive d Time (Source) Location / / Volume Laterality Blood 05/16/2022 3:01 AM 3:36 EDT AM EDT Resulting Agency Comment Spec In Lab Erin Garza MD HEMATOLOGY ORDERABLES Performing Organization Address City/State/[place] [address] (ABNORMAL) Hemogram (05/16/2022 3:01 AM EDT) Analysis Performed At Patho logist Time Signature WBC 11.6 (H) 4.0 - 9.5 [facility] x10(3)/[facility] LABORATORY RBC 3.62 (L) 4.58 - [facility] 5.54 [facility] x10(6)/[facility] LABORATORY Hemoglobin 12.0 (L) 13.7 - [facility] 16.5 g/dL [facility] Hematocrit 35.3 (L) 40.5 - [facility] 48.5 % [facility] LABORAT[facility] MCV 97.5 (H) 82.9 - [facility] 93.1 [facility] LABORATORY MCH 33.1 (H) 27.5 - [facility] 32.1 pg [facility] LABORATORY MCHC 34.0 32.0 - [facility] 35.7 g/dL [facility] LAB[facility] Platelets 151 145 - 357 [facility] x10(3)/[facility] RDWSD 47.6 (H) 36.0 - [facility] 45.0 [facility] RDWCV 13.3 11.4 - [facility] 13.8 % [facility] LABORATORY MPV 10.5 7.6 - 12.9 [facility] LABORATORY nRBC % Auto 0.0 % [facility] LABORAT[facility] nRBC Abs Auto 0.000 0.000 - [facility] 0.000 [facility] x10(3)/[facility] LABORATORY Specimen Anatomical Collection Method Collection Time Receive d Time (Source) Location / / Volume Laterality Blood 05/16/2022 3:01 AM 2 3:36 EDT AM EDT Resulting Agency Comment Spec In Lab Erin Garza MD HEMATOLOGY ORDERABLES Performing Organization Address City/State/ZIP Code Phon e Number [address] Phosphorus (05/16/2022 3:01 AM EDT) athologist Signature Phosphorus 3.7 2.5 - 4.5 [facility] mg/dL [facility] LABORATORY Specimen Anatomical Collection Method Collection Time Receive d Time (Source) Location / / Volume Laterality Blood 05/16/2022 3:01 AM 2 3:36 EDT AM EDT Resulting Agency Comment Spec In Lab Fito Summers MD CHEMISTRY ORDERABLES Performing Organization Address City/State/ZIP Code Phon e Number [address] Magnesium (05/16/2022 3:01 AM EDT) P athologist Signature Magnesium 0.77 0.69 - 1.07 [facility] mmol/L [facility] LABORATORY Specimen Anatomical Collection Method Collection Time Receive d Time (Source) Location / / Volume Laterality Blood 05/16/2022 3:01 AM 2 3:36 EDT AM EDT Resulting Agency Comment Spec In Lab Fito Summers MD CHEMISTRY ORDERABLES Performing Organization Address City/[facility]/ZIP Code Phon e Number [address] (ABNORMAL) Basic Metabolic Panel (non-fasting) (05/16/2022 3:01 AM EDT) P athologist Signature Glucose Lvl 222 (H) 65 - 199 [facility] mg/dL [facility] LABORATORY Comment: Diabetes: >=200 mg/dL [...] Chloride 108 (H) 98 - 107 mmol/L [facility]OR[facility] CO2 22 22 - 31 mmol/L [facility] Anion Gap 8 5 - 15 mmol/L [facility]OR[facility] Calcium 8.2 (L) 8.5 - 10.5 mg/dL [facility] LABORATORY Estimated GFR 95 >=60 mL/min/1.73 m?? [facility] LABOR[facility] Comment: This patient's estimated GFR [...] Organization Address City/State/[place] [address] (ABNORMAL) BLOOD GAS 2 ARTERIAL (05/15/2022 3:33 PM EDT) Analysis Performed At Patho logist Time Signature pH Art 7.33 (L) 7.35 - [facility] 7.45 [facility] LABORATORY pCO2 Art 41 35 - 45 [facility] LABORATORY pO2 Art 131 (H) 85 - 104 [facility] LABORATORY HCO3 Art 21.1 20.0 - [facility] 26.0 [facility] mmol/L [facility] LABORATORY BE Art -4.8 (L) -3.0 - 3.0 [facility] mmol/L [facility] LABORATORY Hgb Blood Gas 13.4 (L) 13.7 - [facility] 16.5 g/dL [facility] O2HB Art 96.9 94.0 - [facility] 97.0 % [facility] COHB Art 1.4 % [facility] LABORATORY Comment: Nonsmokers: 0.5-1.5% COHB Smokers: Variable, but usually less than 10% Toxic: 20-30% COHB Lethal: Greater than 60% COHB METHB Art 0.3 <=1.5 % [facility] Na Whole Blood 139 135 - 145 mmol/L [facility] K Whole Blood 3.8 3.5 - 5.0 mmol/L [facility]OR[facility] Comment: Please note: Patients with WBC >100,000 may have falsely elevated Potassium levels. Contact the Clinical Chemistry L aboratory if there are any questions. ICa Whole Blood 1.32 1.15 - 1.33 mmol/L [facility] LABOR[facility] Comment: Note: ??Total bilirubin higher than 20 m g/dL may lead to falsely low ionized calcium. CL Whole Blood 113 (H) 98 - 107 mmol/L [facility] LABORATORY Gluc Whole Bld 136 65 - 199 mg/dL [facility] LABORATORY Comment: Diabetes: >=200 mg/dL plus symp toms. Lactate WB 2.0 0.5 - 2.2 mmol/L [facility] LABORATORY Specimen Anatomical Collection Method Collection Time Receive d Time (Source) Location / / Volume Laterality Blood 05/15/2022 3:33 PM 2 3:[address] Jamel Torre MD CHEMISTRY ORDERABLES Performing Organization Address City/State/[place] [address] (ABNORMAL) BLOOD GAS 2 ARTERIAL (05/15/2022 2:06 PM EDT) Analysis Performed At Patho logist Time Signature pH Art 7.39 7.35 - [facility] 7.45 [facility] LABORATORY pCO2 Art 35 35 - 45 [facility] mmHg [facility] LABORATORY pO2 Art 135 (H) 85 - 104 [facility] LABORATORY HCO3 Art 20.8 20.0 - [facility] 26.0 [facility] mmol/L [facility] LABORATORY BE Art -4.2 (L) -3.0 - 3.0 [facility] mmol/L [facility] LABORATORY Hgb Blood Gas 14.5 13.7 - [facility] 16.5 g/dL [facility] O2HB Art 97.2 (H) 94.0 - [facility] 97.0 % [facility] LABORAT[facility] COHB Art 1.2 % [facility] Comment: Nonsmokers: 0.5-1.5% COHB Smokers: Variable, but usually less than 10% Toxic: 20-30% COHB Lethal: Greater than 60% COHB METHB Art 0.3 <=1.5 % [facility] Na Whole Blood 140 135 - 145 mmol/L [facility] K Whole Blood 3.8 3.5 - 5.0 mmol/L [facility] Comment: Please note: Patients with WBC >100,000 may have falsely elevated Potassium levels. Contact the Clinical Chemistry L aboratory if there are any questions. ICa Whole Blood 1.12 (L) 1.15 - 1.33 mmol/L [facility] Comment: Note: ??Total bilirubin higher than 20 m g/dL may lead to falsely low ionized calcium. CL Whole Blood 109 (H) 98 - 107 mmol/L [facility] LABORATORY Gluc Whole Bld 152 65 - 199 mg/dL [facility] LABORATORY Comment: Diabetes: >=200 mg/dL plus symp toms. Lactate WB 1.5 0.5 - 2.2 mmol/L [facility] LABORATORY Specimen Anatomical Collection Method Collection Time Receive d Time (Source) Location / / Volume Laterality Blood 05/15/2022 2:06 PM 2:[address] Jamel Torre MD CHEMISTRY ORDERABLES Performing Organization Address City/[facility]/ZIP [facility] Phon e Number [place] [phone]OS[address] LAB[address]ORY Drive (ABNORMAL) Prothrombin Time (05/15/2022 12:30 PM EDT) P athologist Signature PT 12.9 (H) 9.4 - 12.5 [facility] LABORATORY INR 1.1 [facility] LABORATORY Comment: An INR <2.0 [...] Morales DO HEMATOLOGY ORDERABLES Performing Organization Address [facility] [place] [address] (ABNORMAL) APTT (05/15/2022 12:30 PM EDT) P athologist Signature PTT 76 (H) 25 - 37 sec [facility]OR[facility] Comment: The PTT is NOT [...] Organization Address City/State/[place] [address] Gold Tube HOLD (05/15/2022 12:20 PM EDT) P athologist Signature Gold Hold Sample in [facility]. [facility] LABORATORY Specimen Anatomical Collection Method Collection Time Receive d Time (Source) Location / / Volume Laterality Blood No Charge / 05/15/2022 12:20 05/15/2022 Unknown PM EDT 12:20 PM EDT Lc Tan Kimberly PA CHEMISTRY ORDERABLES Performing Organization Address City/[facility]/ZIP Code Phon e Number [address] Type and Screen Validity (05/15/2022 12:00 PM EDT) [facility] Method Time Signature T&S only valid [facility] LABORATORY Comment: This Type and Screen result is only valid at the [facility] Specimen Anatomical Collection Method Collection Time Receive d Time (Source) Location / / Volume Laterality Blood 05/15/2022 12:00 05/15/2022 PM EDT 12:17 PM EDT Resulting Agency Comment Spec In Lab Lc Lillyon PA BLOOD BANK ORDERABLES Performing Organization Address City/[facility]/ZIP Code Phon e Number [address] ABORH Recheck Status (05/15/2022 12:00 PM EDT) [facility] Method Time Signature ABORH Recheck Order Placed [facility] K Order [facility] LABORATORY ABORH Type Complete [facility] LABORATORY Specimen Anatomical Collection Method Collection Time Receive d Time (Source) Location / / Volume Laterality Blood 05/15/2022 12:00 05/15/2022 PM EDT 12:17 PM EDT Resulting Agency Comment Spec In Lab Lc Lillyon PA BLOOD BANK ORDERABLES Performing Organization Address City/State/[place] [address] CK (05/15/2022 12:00 PM EDT) P athologist Signature CK, Total 87 0 - 200 [facility] unit/L [facility] LABORATORY Specimen Anatomical Collection Method Collection Time Receive d Time (Source) Location / / Volume Laterality Blood Venous Draw / 05/15/2022 12:00 05/15/2022 Unknown PM EDT 12:19 PM EDT Resulting Agency Comment Spec In Lab Fito Summers MD CHEMISTRY ORDERABLES Performing Organization Address City/State/[place] [address] Antibody screen (05/15/2022 12:00 PM EDT) [facility] Method Time Signature Ab Screen Negative [facility] LABORATORY Expires at 05/18/2022 [facility] [id number] on: [facility] LABORATORY Specimen Anatomical Collection Method Collection Time Receive d Time (Source) Location / / Volume Laterality Blood 05/15/2022 12:00 05/15/2022 PM EDT 12:17 PM EDT Resulting Agency Comment Spec In Lab Lc TRIPP BLOOD BANK ORDERABLES Performing Organization Address City/[facility]/ZIP Code Phon e Number [address] ABO/Rh Typing (05/15/2022 12:00 PM EDT) athologist Signature ABORh Type O Pos [facility] LABORATORY Specimen Anatomical Collection Method Collection Time Receive d Time (Source) Location / / Volume Laterality Blood 05/15/2022 12:00 05/15/2022 PM EDT 12:17 PM EDT Resulting Agency Comment Spec In Lab Lc TRIPP BLOOD BANK ORDERABLES Performing Organization Address City/[facility]/ZIP Code Phon e Number [address] (ABNORMAL) Differential, Automated (05/15/2022 12:00 PM EDT) [facility] Method Time Signature Neutrophils % 79.4 % [facility]OR[facility] Neutr Abs (ANC) 7.49 (H) 1.70 - [facility] 6.10 [facility] x10(3)/[facility] L LABORATORY Lymphocytes % 11.3 % [facility] LABORATORY Lymphocytes Abs 1.1 0.9 - 3.2 [facility] x10(3)/[facility] LABORATORY Monocytes % 7.8 % [facility]OR[facility] Monocyte Abs 0.7 0.3 - 0.9 [facility] x10(3)/[facility] LABORATORY Eosinophils % 0.6 % [facility] Eosinophils Abs 0.1 0.0 - 0.4 [facility] x10(3)/[facility] LABORATORY Basophils % 0.6 % [facility] Basophils Abs 0.1 0.0 - 0.1 [facility] x10(3)/[facility] LABORATORY Immature Gran % 0.30 % [facility] Comment: Immature granulocytes(IG's)percentage an d absolute count will include metamyelocytes, myelocytes, and promyelo cytes. Blood smears from CBCs yielding IG's will be scanned manually for concor dance. If this scan disagrees with the automated IG or if promyelocytes are not ed, a manual differential will be performed. Rain Gran Abs 0.03 0.00 - 0.04 x10(3)/[facility] LABORATORY Specimen Anatomical Collection Method Collection Time Receive d Time (Source) Location / / Volume Laterality Blood 05/15/2022 12:00 05/15/2022 PM EDT 12:19 PM EDT Resulting Agency Comment Spec In Lab Lc TRIPP HEMATOLOGY ORDERABLES Performing Organization Address City/State/[place] [address] (ABNORMAL) Hemogram (05/15/2022 12:00 PM EDT) Analysis Performed At Patho logist Time Signature WBC 9.4 4.0 - 9.5 [facility] x10(3)/[facility] LABORATORY RBC 4.48 (L) 4.58 - [facility] 5.54 [facility] x10(6)/[facility] LABORATORY Hemoglobin 14.5 13.7 - [facility] 16.5 g/dL [facility] LABORATORY Hematocrit 42.4 40.5 - [facility] 48.5 % [facility] LABORATORY MCV 94.6 (H) 82.9 - [facility] 93.1 [facility] LABORATORY MCH 32.4 (H) 27.5 - [facility] 32.1 pg [facility] LABORATORY MCHC 34.2 32.0 - [facility] 35.7 g/dL [facility] LABORATORY Platelets 209 145 - 357 [facility] x10(3)/[facility] LABORATORY RDWSD 45.9 (H) 36.0 - [facility] 45.0 [facility] LABORATORY RDWCV 13.1 11.4 - [facility] 13.8 % [facility]ATORY MPV 10.5 7.6 - 12.9 [facility] LABORATORY nRBC % Auto 0.0 % [facility] LABORATORY nRBC Abs Auto 0.000 0.000 - [facility] 0.000 [facility] x10(3)/[facility] LABORATORY Specimen Anatomical Collection Method Collection Time Receive d Time (Source) Location / / Volume Laterality Blood 05/15/2022 12:00 05/15/2022 PM EDT 12:19 PM EDT Resulting Agency Comment Spec In Lab Lc TRIPP HEMATOLOGY ORDERABLES Performing Organization Address City/State/[place] [address] (ABNORMAL) Basic Metabolic Panel (non-fasting) (05/15/2022 12:00 PM EDT) P athologist Signature Glucose Lvl 203 (H) 65 - 199 [facility] mg[facility]dL [facility] Comment: Diabetes: >=200 mg/dL [...] estions. Chloride 107 98 - 107 mmol/L [facility]OR[facility] CO2 23 22 - 31 mmol/L [facility] Anion Gap 11 5 - 15 mmol/L [facility]OR[facility] Calcium 8.5 8.5 - 10.5 mg/dL [facility] LABORATORY Estimated GFR 89 >=60 mL/min/1.73 m?? [facility] Comment: This patient's estimated GFR [...] Organization Address City/State/[place] [address] documented in this encounter [...] Oral, EVERY 6 HOURS PRN, Starting on Bradni 05/16/22 at 1606, Until Fri05/21/22 at 1743, [...] 10 mg, Rectal, DAILY PRN, Starting on Brandi 05/16/22 at 16 04, Until Fri05/21/22 at 1743, [...] Oral, 2 TIMES DAILY, First dose on Fri05/18/22 at 2100, Until [...] - Reason: Transfer to a Procedural area)1955 ([facility] Unhold - Provider: Admin Adt) 0815 (Given - Provider: Etta contreras, RN) 1,000 mcg, Oral, DAILY, First dose on 05/16/22 at 0900, Until Discontinued, Routine metoprolol tartrate (Lopressor) tablet 12.5 mg (CANCEL ED) 0838 (Given - Provider: Caroline Zamora, RN)2008 (Given - Provider: Nuris Lester, DION) 0853 (Given - Provider: Barbie Joyce RN)1750 ([facility] Hold - Provider: Admin Adt - Reason: Transfer to a Procedural area)1955 ([facility] Unhold - Provider: Admin [...] 0852 (Given - Provider: Barbie Joyce RN)1750 ([facility] Hold - Provider: Admin Adt - Reason: Transfer to a Procedural area)1955 ([facility] Unhold - Provider: Admin Adt) 0816 (Given - Provider: Etta contreras, DION) 1 tablet, Oral, DAILY, First dose on Fri05/16/22 at 0900, Until Discontinued, Routine pantoprazole EC (Protonix) tablet 40 mg 40 mg, Oral, DAILY, First dose on Fri at 0900, Until Discontinued, DO NOT CRUSH OR OPEN, Routine polyethylene glycoL (Miralax) packet 17 g 0838 (Given - Provider: Caroline Zamora RN)2099 (Not Given - Provider: Nuris Lester, DION - Reason: Patient/family refused) 899 (Not Given [...] - Reason: Transfer to a Procedural area)1955 ([facility] Unhold - Provider: Admin Adt) 0817 (Given - Provider: Etta contreras RN) 0.4 mg, Oral, DAILY, First dose on Brandi at 0900, Until Discontinued, DO NOT CRUSH OR OPEN, Routine thiamine (Vitamin B1) tablet 100 mg 0838 (Given - Prov ider: Caroline Zamora, DION) 0853 (Given - Provider: Barbie Joyce RN)1750 ([facility] Hold - Provider: Admin Adt - Reason: Transfer to a Procedural area)1955 ([facility] Unhold - Provider: Admin Adt) 0816 (Given - Provider: Etta contreras RN) 100 mg, Oral, DAILY, First dose on Brandi at 0900, Until Discontinued, Routine valsartan (Diovan) tablet 40 mg 0838 (Given - Provider : Caroline Zamora, DION)2008 (Given - Provider: Nuris Lester RN) 0853 (Given - Provider: Barbie Joyce RN)1750 ([facility] Hold - Provider: Admin Adt - Reason: Transfer to a Procedural area)1955 ([facility] Unhold - Provider: Admin Adt)2005 (Given - Provider: Tere Blankenship RN) 0816 (Given - Provider: Etta contreras RN) 40 mg, Oral, 2 TIMES DAILY, First dose o n 05/18/22 at 2100, Until Discontinued, Routine Continuous Medication Order 05/19/2022 05/20/2022 05/21/2022 heparin (porcine) 50 units/mL in sodium chloride 0.45% 500 mL infusion 1935 (New Bag - Provider: Nuris Lester RN) 1599 (New Bag - Provider: Barbie Joyce RN)1750 ([facility] Hold - Provider: Admin Adt - Reason: Transfer to a Procedural area)1955 ([facility] Unhold - Provider: Admin Adt) 218 (Restarted [...] tablet (CANCELED) 1745 (Given - Provider: Flavia Schuler, DION) ONCE PRN, Starting on Fri05/20/22 at 174 [...] (CANCELED) 1 746 (Given - Provider: Flavia Schuler, DION) ONCE PRN, Starting on Fri05/20/22 at 174 [...] Admin Adt) 0-8,000 Units, Intravenous, BOLUS PER [facility] PROTOCOL, Starting on Brandi 05/16/22 at 0758, [...] mL 175 (JAN Hold - Provider: A dmin Adt - Reason: Transfer to a Procedural [...]
Routine documented in this encounter Care Teams Sorting Machine Operator Relationship Specialty Start Date End Date Bobby Das MD PCP - General 10/02/[address] [place] [address] [place] [phone] documented as of this encounter
--- OUTSIDE RECORDS SUMMARY | 2022-07-05 12:36 | XMS_ITS | Encounter Summary ---
:1940 Author Organization [facility] [place] [address] Care Team Providers Name Role Phone Bobby Das MD Primary Care Provider Reason for Referral Consultation (Routine) - Closed Specialty Diagnoses / Procedures Referred By Contact Refer red To Contact Neurology Diagnoses Low back pain, non-specific Status post vertebroplasty Transient left leg weakness EMG Arpita Whitney APRN [facility] Neurology [address] [place], [place] [address] [place] [phone] Fax: Referral ID Status Reason Start Date Expiration Date Visits V isits Requested Authorized [id number] Closed Consult, 04/17/2021 04/17/2022 1 1 Test & Treat hysical Therapy (Routine) - Specialty Diagnoses / Procedures Referred By Contact Refer red To Contact Diagnoses Low back pain, non-specific Status post vertebroplasty [place] [address] Referral ID Status Reason Start Date Expiration Date Visits V isits Requested Authorized [id number] Evaluate and 04/17/2021 10/14/2021 12 12 Treat Reason for Visit Reason Comments Back Pain new patient visit Consultation (Routine) - Closed Specialty Diagnoses / Procedures Referred By Contact Refer red To Contact [facility] Sp[facility] Diagnoses Low back pain Pain - Low back pain/ MRI 02/20/21 & XR 01/31/21 @ [facility] Bobby Das MD [facility] Ctr Pain And [address] [place], [place] [address] [address] [place] [address] Phone: Fax: Referral ID Status Reason Start Date Expiration Date Visits Requ ested Visits Authorized [id number] Closed 03/07/2021 03/07/2022 1 1 Encounter Details Date Type Department Care Team Description 04/17/2021 Office Visit [facility] Sp[facility] Arpita Whitney Lo w back pain, non-specific; at [facility] [employer] RN Status post vertebroplasty; [facility] Tra nsient left leg weakness Drive [place], [place] [phone] Social History Tobacco [...] from the original note were not included. [facility] FOR [facility] CONS[facility]ATION Date of [...] here for today. Had lumbar imaging and [facility] as ordered by PCP with no [...] standing limited due to back pain [facility] Prescription Monitoring Program was checked. The number of prescriptions reported was 0. Current Medications: Outpatient Medications Marked as Taking for the 04/17/21 encounter (Office Visit) with Arpita Whitney APRN Medication Sig Dispense Refill ??? fluticasone propionate (FLONASE) 50 mcg/actuation [place], Suspension as needed. ??? fluorouraciL (EFUDEX) 5 [...] IR Biopsy Spine 07/20/2019 Bobby Marshall MD [facility] INTERVENTIONL RAD ??? IR VERTEBROPLASTY LUMBAR MULTIPLE LEVELS 07/20/2019 IR Vertebroplasty Lumbar Multiple Levels 07/20/2019 Bobby Marshall MD [facility] INTERVENTIONL RAD ??? IR VERTEBROPLASTY THORACIC SINGLE LEVEL 10/25/2020 IR Vertebroplasty Thoracic Single Level 10/25/2020 Matt Chisholm MD [facility] INTERVENTIONL RAD Review of Systems: ROS: Denies [...] y.o. year-old male who presents to the [facility] for [facility] Sp[facility] clinic, previously [...] Mr. Koko Zamora's care. Arpita Whitney, MSN, HEMATOLOGY NURSE EDUCATOR- C, EMPLOYEE HEALTH RN Nurse Practitioner [facility] [place] [address] / [facility] documented in this encounter Plan of Treatment Upcoming Encounters Date Type Specialty Care Team Description 08/08/2022 Office Visit Gastroenterology Negra Collins MD [facility] GASTROENTEROLOGY DEPT [place], [place] [address] (Wo rk) 09/05/2022 Appointment Cardiology Trinity Reid MD [facility] CARDIOLOGY [place], [place] [address] (Wo rk) 09/05/2022 Office Visit Cardiology Trinity Reid MD [facility] CARDIOLOGY [place], [place] [address] (Wo rk) Scheduled Referrals Name [...] limbs documented in this encounter Care Teams Cabinetmaker Helper Relationship Specialty Start Date End Date Bobby Das MD PCP - General 10/02/[address] [place] [address] [place] [phone] documented as of this encounter
--- OUTSIDE RECORDS SUMMARY | 2022-07-05 12:36 | XMS_ITS | Encounter Summary ---
:1940 Author Organization [facility] [place] [address] Care Team Providers Name Role Phone Bobby Das MD Primary Care Provider Encounter Details Date Type Department Care Team Description 05/15/2022 Ancillary Procedure Radiology Library at [facility], Lavell Butt, [facility] [place] [address] VASCULAR SURGERY [phone] [place] [phone] (Wo rk) Social History Tobacco Use Types [...] Care Team Description 08/08/2022 Office Visit Gastroenterology Negar Collins MD [facility] DR GASTROENTEROLOGY DEPT [place], [place] [address] (Wo rk) 09/05/2022 Appointment Cardiology Trinity Reid MD [facility] CARDIOLOGY [place], [place] [address] (Wo rk) 09/05/2022 Office Visit Cardiology Trinity Reid MD [facility] CARDIOLOGY [place], [place] [address] (Wo rk) documented as of [...] Organization Address City/State/ZIP Code Phon e Number [place], [place] documented in this encounter Visit Diagnoses Not on filedocumented in this encounter Care Teams Intrusion Analyst Relationship Specialty Start Date End Date Bobby Das MD PCP - General 10/02/[address] [place] [address] [place] [phone] documented as of this encounter
--- OUTSIDE RECORDS SUMMARY | 2022-07-05 12:36 | XMS_ITS | Encounter Summary ---
:1940 [place] [address] Care Team Providers Name Role Phone Bobby Das MD Primary Care Provider Encounter Details Date Type Department Care Team Description 02/27/2021 Notes Only Radiology Matt Chisholm MD [facility] [place] [address] DIAGNOSTIC RADIOLOGY [phone] [place] [phone] (Wo rk) Social History Tobacco Use Types [...] Negra Collins MD [facility] DR GASTROENTEROLOGY DEPT [place], [place] [address] (Wo rk) 09/05/2022 Appointment Cardiology Trinity Reid MD [facility] CARDIOLOGY [place], [place] [address] (Wo rk) 09/05/2022 Office Visit Cardiology Trinity Reid MD [facility] CARDIOLOGY [place], [place] [address] (Wo rk) documented as of this encounter Visit Diagnoses Not on filedocumented in this encounter Care Teams Manager Sas Relationship Specialty Start Date End Date Bobby Das MD PCP - General 10/02/[address] [place] [address] [place] [address] documented as of this encounter
--- OUTSIDE RECORDS SUMMARY | 2022-07-05 12:36 | XMS_ITS | Encounter Summary ---
:1940 Author Organization [facility] Address [facility] [place] [address] Care Team Providers Name Role Phone Bobby Das MD Primary Care Provider Reason for Visit - Closed Specialty Diagnoses / Procedures Referred By Contact Refer red To Contact Procedures Bobby Das MD Film Library- Storage Only [address] [place] [phone] Referral ID Status Reason Start Date Expiration Date Visits Requ ested Visits Authorized [id number] Closed 02/23/2021 02/23/2022 1 1 Encounter Details Date Type Department Care Team Description 02/20/2021 Ancillary Procedure Radiology Library at Bobby Almaguer MD [address] [phone] [phone] (Rebekah rojas) Social History Tobacco Use Types [...] Office Visit Gastroenterology Negra Collins MD [facility] DR GASTROENTEROLOGY DEPT [place], [place] [address] (Wo rk) 09/05/2022 Appointment Cardiology Trinity Reid MD [facility] ER CARDIOLOGY [place], [place] [address] (Wo rk) 09/05/2022 Office Visit Cardiology Trinity Reid MD [facility] ER CARDIOLOGY [place], [place] [address] (Wo rk) documented as of [...] Organization Address City/State/ZIP Code Phon e Number [place], [place] documented in this encounter Visit Diagnoses Not on filedocumented in this encounter Care Teams Timekeeping Supervisor Relationship Specialty Start Date End Date Bobby Das MD PCP - General 10/02/[address] [place] [address] [place] [phone] documented as of this encounter
--- OUTSIDE RECORDS SUMMARY | 2022-07-05 12:36 | XMS_ITS | Encounter Summary ---
:1940 Author Organization [facility] [place] [address] Care Team Providers Name Role Phone Bobby Das MD Primary Care Provider Encounter Details Date Type Department Care Team Description 05/15/2022 Ancillary Procedure Radiology Library at [facility], Lavell Butt, [facility] [place] [address] VASCULAR SURGERY [phone] [place] [address] (Wo rk) Social History Tobacco Use Types [...] 08/08/2022 Office Visit Gastroenterology Negra Collins MD [facility] DR GASTROENTEROLOGY DEPT [place], [place] [address] (Wo rk) 09/05/2022 Appointment Cardiology Trinity Reid MD [facility] CARDIOLOGY [place], [place] [address] (Wo rk) 09/05/2022 Office Visit Cardiology Trinity Reid MD [facility] CARDIOLOGY [place], [place] [address] (Wo rk) documented as of [...] Organization Address City/State/ZIP Code Phon e Number [place], [place] documented in this encounter Visit Diagnoses Not on filedocumented in this encounter Care Teams Thread Grinder Relationship Specialty Start Date End Date Bobby Das MD PCP - General 10/02/[address] [place] [address] [place] [phone] documented as of this encounter
--- OUTSIDE RECORDS SUMMARY | 2022-07-05 12:36 | XMS_ITS | Encounter Summary ---
:1940 Author Organization [facility] Address [facility] [place] [address] Care Team Providers Name Role Phone Bobby Das MD Primary Care Provider Encounter Details Date Type Department Care Team Description 10/25/2020 Laboratory Appointment Lab at [facility] Compression fracture [facility] of T9 [place] [address] Social History Tobacco Use Types Packs/Day Years [...] 08/08/2022 Office Visit Gastroenterology Negra Collins MD [facility] DR GASTROENTEROLOGY DEPT [place], [place] [address] (Wo rk) 09/05/2022 Appointment Cardiology Trinity Reid MD [facility] CARDIOLOGY [place], [place] [address] (Wo rk) 09/05/2022 Office Visit Cardiology Trinity Reid MD [facility] CARDIOLOGY [place], [place] [address] (Wo rk) documented as of this encounter Procedures Procedure Name Priority Date/Time Associated Diagnosis Comme [facility] VENIPUNCTURE Routine 10/25/2020 6:35 AM Compression fractur e Results for this EST of T9 vertebra, procedure ar e in initial encounter the result s section. HC PLATELET COUNT Routine 10/25/2020 6:35 AM Compression fract ure Results for this EST of T9 vertebra, procedure ar e in initial encounter the result s section. documented in this encounter Results Platelet count (10/25/2020 6:35 AM EST) athologist Signature Platelets 192 145 - 357 [facility] x10(3)/[facility] LABORATORY Plat Immature 2.6 0.0 - 7.4 [facility] % % [facility] LABORATORY Comment: Limitation of the Immature Platelet Frac tion (IPF)-May be less reliable when the platelet count is less than 45t660/u L due to statistical imprecision. The IPF [...] in a decreased state of production. References: [employer] The Clinical Value of the Immature Platelet Fraction (IPF) in Cell Recovery Document Number [id number] 04/2011 [employer] The Role of the Imm ature Platelet Fraction (IPF) in the Differential Diagnosis of Thrombocytopen ia, Document [id number] V05/10/23 P003/23 Specimen Anatomical Collection Method Collection Time Receive d Time (Source) Location / / Volume Laterality Blood specimen 10/25/2020 6:35 AM 020 6:52 (specimen) EST AM EST Resulting Agency Comment Spec In Lab Alphonso Esquivel DO HEMATOLOGY ORDERABLES Performing Organization Address City/State/ZIP [place] [address] Prothrombin Time (10/25/2020 6:35 [...] Organization Address City/State/ZIP Code Phon e Number [place] [phone] [facility] documented in this encounter Visit Diagnoses Diagnosis Compression fracture of T9 vertebra, ini tial encounter documented in this encounter Care Teams Agricultural And Forestry Supervisor Relationship Specialty Start Date End Date Bobby Das MD PCP - General 10/02/[address] [place] [address] [place] [phone] documented as of this encounter
--- OUTSIDE RECORDS SUMMARY | 2022-07-05 12:36 | XMS_ITS | Encounter Summary ---
:1940 [place] [address] Care Team Providers Name Role Phone Bobby Das MD Primary Care Provider Reason for Visit Auth/Cert Specialty Diagnoses / Procedures Referred By Contact Refer red To Contact Diagnoses Limb ischemia LLE thrombus Fito Summers MD [facility] [place] [address] Referral ID Status Reason Start Date Expiration Date Visits Requ ested Visits Authorized [id number] 1 1 Encounter Details Date Type Department Care Team Description 05/15/2022 Anesthesia Event Main Operating Room Cari Briggs MD [facility] [place] [address] [facility] Duong Aguillon CRNA [facility] [place] [address] [place] [address] Anesthesia Record Procedure Summary Procedure Name [...] Left, 05/15/22 1526 by lateral, lower; leg aJylene Herring RN Incision 05/15/22; 1527; Left, 05/15/22 1527 by medial, lower; leg Jaylene Herring RN PIV 05/15/22; 1204; median 05/15/22 1204 by 05/16/22 1117 by cubital vein (antecubital Marcia Dimas, RN Amb Hilton houser RN fossa), left; hrfj-fzz-qxhywb catheter system; 18 gauge; OSH; site care per policy/procedure, site symptomatic, removed per policy/procedure, catheter/device intact; 05/16/22; 1117 PIV 05/15/22; 1204; median 05/15/22 1204 by 05/16/22 0738 by cubital vein (antecubital Marcia Dimas RN Gon zalez, Adriana, fossa), right; RN nxdr-ihg-psqwwt catheter system; 18 gauge; OSH; 05/16/22; 0738 [...] Procedure Summary Date: 05/15/22 Room / Location: [facility] OR [address] [place] [address] MAIN OR Anesthesia Start: 1320 Anesthesia Stop: 1633 Procedure: EMBOLECTOMY OR THROMBECTOMY, FEMOROPOPLITEAL, AORTOILIAC ARTERY BY LEG INCISION (WRVU 19.48) (Left ) Diagnosis: (Acute Limb Ischemia) Surgeons: Fito Summers MD Responsible Provider: Cari Ventura MD Anesthesia Type: general ASA Status: 3 - Emergent All Anesthesia Providers: Anesthesiologist: Cari Ventura MD BOAT PAINTER: Torres Aguilar CRNA Vitals Value Taken Time [...] THROMBECTOMY, FEMOROPOPLITEAL, AORTOILIAC ARTERY BY LEG INCISION [facility] Patient Active Problem List Diagnosis [...] Biopsy Spine 07/20/[address] [facility] INTERVENTIONL RAD ??? IR VERTEBROPLASTY LUMBAR MULTIPLE LEVELS 07/20/2019 IR Vertebroplasty Lumbar Multiple Levels 07/20/[address] [facility] INTERVENTIONL RAD ??? IR VERTEBROPLASTY THORACIC SINGLE LEVEL 10/25/2020 IR Vertebroplasty Thoracic Single Level 10/25/[address] [facility] INTERVENTIONL RAD Social History Tobacco Use [...] a(n) intravenous induction 81 yo current and senior care smoker with significant daily etoh use (6 [...] discussed with patient who. Plan discussed with BOAT PAINTER. Anesthesia Screening documented in this encounter Plan of Treatment Upcoming Encounters Date Type Specialty Care Team Description 08/08/2022 Office Visit Gastroenterology Negra Collins MD [facility] GASTROENTEROLOGY DEPT [place], [place] [address] (Wo rk) 09/05/2022 Appointment Cardiology Trinity Reid MD [facility] CARDIOLOGY [place], [place] [address] (Wo rk) 09/05/2022 Office Visit Cardiology Trinity Reid MD [facility] CARDIOLOGY [place], [place] [address] (Wo rk) documented as of [...] Routine documented in this encounter Care Teams Student Career Development Specialist Relationship Specialty Start Date End Date Bobby Das MD PCP - General 10/02/[address] [place] [address] [place] [phone] documented as of this encounter
--- OUTSIDE RECORDS SUMMARY | 2022-07-05 12:37 | XMS_ITS | Encounter Summary ---
:1940 Author Organization [facility] [place] [address] Care Team Providers Name Role Phone Bobby Das MD Primary Care Provider Encounter Details Date Type Department Care Team Description 09/06/2020 Ancillary Procedure Radiology at [facility] Amy Grimaldo [address] [place] [address] 10 [place]AY [phone] NEUROSURGERY-N Jovanny [place], [place] [address] Social History Tobacco Use Types [...] 08/08/2022 Office Visit Gastroenterology Negra Collins MD [facility] GASTROENTEROLOGY DEPT [place], [place] [address] (Wo rk) 09/05/2022 Appointment Cardiology Trinity Reid MD [facility] CARDIOLOGY [place], [place] [address] (Wo rk) 09/05/2022 Office Visit Cardiology Trinity Reid MD [facility] CARDIOLOGY [place], [place] [address] (Wo rk) documented as of [...] Organization Address City/State/ZIP Code Phon e Number [place], [place] documented in this encounter Visit Diagnoses Not on filedocumented in this encounter Care Teams Network Support Engineer Relationship Specialty Start Date End Date Bobby Das MD PCP - General 10/02/[address] [place] [address] [place] [phone] documented as of this encounter
--- OUTSIDE RECORDS SUMMARY | 2022-07-05 12:37 | XMS_ITS | Encounter Summary ---
:1940 Author Organization [facility] [place] [address] Care Team Providers Name Role Phone Bobby Das MD Primary Care Provider Encounter Details Date Type Department Care Team Description 08/28/2020 Ancillary Procedure Radiology at [facility] Amy Grimaldo [address] [place] [address] 10 LITTLE JAY [phone] NEUROSURGERY-N [place], [place] [address] Social History Tobacco Use Types [...] 08/08/2022 Office Visit Gastroenterology Negra Collins MD [facility] GASTROENTEROLOGY DEPT [place], [place] [address] (Wo rk) 09/05/2022 Appointment Cardiology Trinity Reid MD [facility] CARDIOLOGY [place], [place] [address] (Wo rk) 09/05/2022 Office Visit Cardiology Trinity Reid MD [facility] CARDIOLOGY [place], [place] [address] (Wo rk) documented as of [...] Organization Address City/State/ZIP Code Phon e Number [place], [place] documented in this encounter Visit Diagnoses Not on filedocumented in this encounter Care Teams Partition Setter Relationship Specialty Start Date End Date Bobby Das MD PCP - General 10/02/[address] [place] [address] [place] [phone] documented as of this encounter
--- OUTSIDE RECORDS SUMMARY | 2022-07-05 12:37 | XMS_ITS | Encounter Summary ---
:1940 [place] [address] Care Team Providers Name Role Phone Bobby Das MD Primary Care Provider Encounter Details Date Type Department Care Team Description 08/25/2015 Telephone Dermatology at [facility] Gloria Ferrell MD [address] [place] [address] [facility]DER[facility] [phone] [place], [place] [address] (Wo rk) Social History Tobacco [...] 08/08/2022 Office Visit Gastroenterology Negra Collins MD [facility] DR GASTROENTEROLOGY DEPT [place], [place] [address] (Wo rk) 09/05/2022 Appointment Cardiology Trinity Reid MD [facility] CARDIOLOGY [place], [place] [address] (Wo rk) 09/05/2022 Office Visit Cardiology Trinity Reid MD [facility] CARDIOLOGY [place], [place] [address] (Wo rk) documented as of this encounter Visit Diagnoses Not on filedocumented in this encounter Care Teams Magnetizer Relationship Specialty Start Date End Date Bobby Das MD PCP - General 10/02/[address] [place] [address] [place] [phone] documented as of this encounter
--- OUTSIDE RECORDS SUMMARY | 2022-07-05 12:37 | XMS_ITS | Encounter Summary ---
:1940 Author Organization [facility] [place] [address] Care Team Providers Name Role Phone Bobby Das MD Primary Care Provider Encounter Details Date Type Department Care Team Description 12/20/2016 Telephone Pain Management at [facility] Kirstin Schultz, RN [facility] [place] [address] Social History Tobacco Use Types Packs/Day Years Used Date Current Some Day Smoker 1 50 Smokeless Tobacco: Never Used Sex Assigned at Date Recorded Not on file documented as of this encounter Miscellaneous Notes Telephone Encounter - Kristin Schultz LPN - 12/20/2016 11:02 AM EST Pt called requesting that the Referral to Hematology and Oncology be sent to [facility] [place] to [place] home. Will Follow up up with the pain clinic after appointment. documented in this encounter Plan of Treatment Upcoming Encounters Date Type Specialty Care Team Description 08/08/2022 Office Visit Gastroenterology Negra Collins MD [facility] GASTROENTEROLOGY DEPT [place], [place] [address] (Wo rk) 09/05/2022 Appointment Cardiology Trinity Reid MD [facility] CARDIOLOGY [place], [place] [address] (Wo rk) 09/05/2022 Office Visit Cardiology Trinity Reid MD [facility] CARDIOLOGY [place], [place] [address] (Wo rk) documented as of this encounter Visit Diagnoses Not on filedocumented in this encounter Care Teams Campaign Marketing Manager Relationship Specialty Start Date End Date Bobby Das MD PCP - General 10/02/[address] [place] [address] [place] [phone] documented as of this encounter
--- OUTSIDE RECORDS SUMMARY | 2022-07-05 12:37 | XMS_ITS | Encounter Summary ---
:1940 Author Organization [facility] Address [facility] [place] [address] Care Team Providers Name Role Phone Bobby Das MD Primary Care Provider Reason for Visit Reason Comments Shortness of Breath Encounter Details Date Type Department Care Team Description 12/24/2011 Office Visit [facility] Torrey Giang SOB (shortness of [address] Bradley Mendoza MD breath) (Primary Dx) [facility] [phone] CARDIOLOGY DEPT. [place], [place] [address] Social History Tobacco Use Types [...] MD [facility] GASTROENTEROLOGY DEPT [place], [place] [address] (Wo rk) 09/05/2022 Appointment Cardiology Trinity Reid MD [facility] CARDIOLOGY [place], [place] [address] (Wo rk) 09/05/2022 Office Visit Cardiology Trinity Reid MD [facility] CARDIOLOGY [place], [place] [address] (Wo rk) documented as of this encounter Visit Diagnoses Diagnosis SOB (shortness of breath) - Primary Shortness of breath documented in this encounter Care Teams Textile Machinery Sales Representative Relationship Specialty Start Date End Date Bobby Das MD PCP - General 10/02/[address] [place] [address] [place] [phone] documented as of this encounter
--- OUTSIDE RECORDS SUMMARY | 2022-07-05 12:37 | XMS_ITS | Encounter Summary ---
:1940 [place] [address] Care Team Providers Name Role Phone Bobby Das MD Primary Care Provider Encounter Details Date Type Department Care Team Description 07/13/2019 Orders Only Radiology Alan Brink Gastrointestinal [facility] MD Rosa hemorrhage, unspecified [facility] DR hemorrhage type (Primary [id number] RADIOLOGY DEPT Dx) [phone] [place], [place] [address] Social History Tobacco Use Types [...] file Gets together: Not on file Attends gnosticism service: Not on file Active member of [...] Negra Collins MD [facility] GASTROENTEROLOGY DEPT [place], [place] [address] (Wo rk) 09/05/2022 Appointment Cardiology Trinity Reid MD [facility] CARDIOLOGY [place], [place] [address] (Wo rk) 09/05/2022 Office Visit Cardiology Trinity Reid MD [facility] CARDIOLOGY [place], [place] [address] (Wo rk) documented as of this encounter Results Prothrombin Time (07/20/2019 8:18 AM EDT) P athologist Signature PT 11.3 9.4 - 12.5 [facility]R [facility] LABORATORY Comment: An INR [...] Organization Address City/State/[place] [address] (ABNORMAL) Hemogram (07/20/2019 8:18 AM EDT) Analysis Performed At Patho logist Time Signature WBC 6.0 4.0 - 9.5 [facility] x10(3)/[facility] LABORATORY RBC 4.50 (L) 4.58 - [facility] 5.54 [facility] x10(6)/[facility] LABORATORY Hemoglobin 14.8 13.7 - [facility] 16.5 gm/dL [facility] LABORATORY Hematocrit 43.9 40.5 - [facility] 48.5 % [facility] LABORATORY MCV 97.6 (H) 82.9 - [facility] 93.1 fL [facility] LABORATORY MCH 32.9 (H) 27.5 - [facility] 32.1 pg [facility] LABORATORY MCHC 33.7 32.0 - [facility] 35.7 gm/dL [facility] LABORATORY Platelets 164 145 - 357 [facility] x10(3)/[facility] LABORATORY RDWSD 49.3 (H) 36.0 - [facility] 45.[address] [facility] LABORATORY RDWCV 13.6 11.4 - [facility] 13.8 % [facility] LABORATORY MPV 10.0 7.6 - 12.9 [facility] LABORATORY nRBC % Auto 0.0 % [facility] LABORATORY nRBC Abs Auto 0.000 0.000 - [facility] 0.000 [facility] x10(3)/[facility] LABORATORY Specimen Anatomical Collection Method Collection Time Receive d Time (Source) Location / / Volume Laterality Blood specimen 07/20/2019 8:18 AM 019 8:21 (specimen) EDT AM EDT Resulting Agency Comment Spec In Lab Bobby Marshall MD HEMATOLOGY ORDERABLES Performing Organization Address City/State/[place] [address] documented in this encounter Visit Diagnoses Diagnosis Gastrointestinal hemorrhage, unspecified gastrointestinal hemorrhage type - Primary documented in this encounter Care Teams Agricultural Consultant Relationship Specialty Start Date End Date Bobby Das MD PCP - General 10/02/[address] [place] [address] [place] [phone] documented as of this encounter
--- OUTSIDE RECORDS SUMMARY | 2022-07-05 12:37 | XMS_ITS | Encounter Summary ---
:1940 Author Organization [facility] [place] [address] Care Team Providers Name Role Phone Bobby Das MD Primary Care Provider Reason for Visit Reason Comments Follow-up Encounter Details Date Type Department Care Team Description 05/31/2014 [facility] of basal cell Nba CARCAMO carcinoma (Primary [address] Dx) [facility] B DERMATOLOGY [place], [place] [phone] Social History Tobacco Use Types Packs/Day Years Used Date Current Some Day Smoker 1 50 Smokeless Tobacco: Never Used Sex Assigned at Date Recorded Not on file documented as of this encounter Patient Instructions Patient InstructionsSupriya Louis LPN - 05/31/2014 1:34 PM EDT Images from the original note were not included. [facility] Actinic Keratosis: After Your Visit Your [...] more? Visit our health information library at [email or web address] You can also view health information on [employer], your personal patient account. Log in or sign up today. Enter L364 in the search box to learn more about Actinic Keratosis: After Your Visit. ?? [id number] [employer]. Care instructions adapted under license by [facility]. This care instruction is for use with your licensed healthcare professional. If you have questionsabout a medical condition or this instruction, always ask your healthcare professional. [employer] disclaims any warranty or liability for your use of this information. Content Version: [id number]; Last Revised: December 22, 2012 documented in this encounter Progress Notes Hammer, Cy J, MD - 05/31/2014 2:08 PM EDT Problem: Follow up for repeat skin checkup. Shadi follows up after last being seen in March. 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 I also treated a verruca vulgaris on [...] and I would be happy to see hSadi back either at the patient's request or at the request of Dr. Das. documented in this encounter Plan of Treatment Upcoming Encounters Date Type Specialty Care Team Description 08/08/2022 Office Visit Gastroenterology Negra Collins MD [facility] GASTROENTEROLOGY DEPT [place], [place] [address] (Wo rk) 09/05/2022 Appointment Cardiology Trinity Reid MD [facility] [address], [place] [address] (Wo rk) 09/05/2022 Office Visit Cardiology Trinity Reid MD [facility] [address] [place], [place] [address] (Rebekah rojas) documented as of this encounter Visit Diagnoses Diagnosis History of basal cell carcinoma - Primar y Personal history of other malignant neop lasm of skin documented in this encounter Care Teams Freight Router Relationship Specialty Start Date End Date Bobby Das MD PCP - General 10/02/[address] [place] [address] [place] [address] documented as of this encounter
--- OUTSIDE RECORDS SUMMARY | 2022-07-05 12:37 | XMS_ITS | Encounter Summary ---
:1940 Author Organization [facility] [place] [address] Care Team Providers Name Role Phone Bobby Das MD Primary Care Provider Encounter Details Date Type Department Care Team Description 06/26/2018 Ancillary Procedure Radiology Library at Bobby Almaguer MD [facility] [address] [place] [phone] (Wo rk) Social History Tobacco Use Types Packs/Day Years Used Date Current Some Day Smoker 1 50 Smokeless Tobacco: Never Used Sex Assigned at Date Recorded Not on file documented as of this encounter Plan of Treatment Upcoming Encounters Date Type Specialty Care Team Description 08/08/2022 Office Visit Gastroenterology Negra Collins MD [facility] DR GASTROENTEROLOGY DEPT [place], [place] [address] (Wo rk) 09/05/2022 Appointment Cardiology Trinity Reid MD [facility] CARDIOLOGY [place], [place] [address] (Wo rk) 09/05/2022 Office Visit Cardiology Trinity Reid MD [facility] CARDIOLOGY [place], [place] [address] (Wo rk) documented as of [...] Organization Address City/State/ZIP Code Phon e Number [place], [place] documented in this encounter Visit Diagnoses Not on filedocumented in this encounter Care Teams Rate Marker Relationship Specialty Start Date End Date Bobby Das MD PCP - General 10/02/[address] [place] [address] [place] [address] documented as of this encounter
--- OUTSIDE RECORDS SUMMARY | 2022-07-05 12:37 | XMS_ITS | Encounter Summary ---
:1940 Author Organization [facility] [place] [address] Care Team Providers Name Role Phone Bobby Das MD Primary Care Provider Encounter Details Date Type Department Care Team Description 08/06/2020 Ancillary Procedure Radiology at [facility] Amy Grimaldo [address] [place] [address] [address] [phone] NEUROSURGERY-N Jovanny [place], [place] [address] Social History Tobacco Use Types [...] 08/08/2022 Office Visit Gastroenterology Negra Collins MD [facility] GASTROENTEROLOGY DEPT [place], [place] [address] (Wo rk) 09/05/2022 Appointment Cardiology Trinity Reid MD [facility] CARDIOLOGY [place], [place] [address] (Wo rk) 09/05/2022 Office Visit Cardiology Trinity Reid MD [facility] CARDIOLOGY [place], [place] [address] (Wo rk) documented as of [...] Organization Address City/State/ZIP Code Phon e Number [place], [place] documented in this encounter Visit Diagnoses Not on filedocumented in this encounter Care Teams Framing And Hanging Relationship Specialty Start Date End Date Bobby Das MD PCP - General 10/02/[address] [place] [address] [place] [phone] documented as of this encounter
--- OUTSIDE RECORDS SUMMARY | 2022-07-05 12:37 | XMS_ITS | Encounter Summary ---
:1940 Author Organization [facility] [place] [address] Care Team Providers Name Role Phone Bobby Das MD Primary Care Provider Encounter Details Date Type Department Care Team Description 09/18/2018 Telephone Dermatology at [facility] Yolanda Fraser RN [address] [address] Social History Tobacco Use Types Packs/Day [...] Who lives with patient (i.e. spouse, children, senior living/longterm)? Spouse Relevant travel history or future plans: [...] 08/08/2022 Office Visit Gastroenterology Negra Collins MD [facility] GASTROENTEROLOGY DEPT [place], [place] [address] (Wo rk) 09/05/2022 Appointment Cardiology Trinity Reid MD [facility] CARDIOLOGY [place], [place] [address] (Wo rk) 09/05/2022 Office Visit Cardiology Trinity Reid MD [facility] CARDIOLOGY [place], [place] [address] (Wo rk) documented as of this encounter Visit Diagnoses Not on filedocumented in this encounter Care Teams Skin Care Consultant Relationship Specialty Start Date End Date Bobby Das MD PCP - General 10/02/[address] [place] [address] [place] [phone] documented as of this encounter
--- OUTSIDE RECORDS SUMMARY | 2022-07-05 12:37 | XMS_ITS | Encounter Summary ---
:1940 Author Organization [facility] [place] [address] Care Team Providers Name Role Phone Bobby Das MD Primary Care Provider Encounter Details Date Type Department Care Team Description 07/20/2019 Laboratory Lab 3L Ifrah Gastrointestina l Appointment [facility] hemorrhag e, unspecified Hospital gastrointestinal [facility] [place] [phone] Social History Tobacco Use Types Packs/Day Years [...] 08/08/2022 Office Visit Gastroenterology Negra Collins MD [facility] DR GASTROENTEROLOGY DEPT [place], [place] [address] (Wo rk) 09/05/2022 Appointment Cardiology Trinity Reid MD [facility] CARDIOLOGY [place], [place] [address] (Wo rk) 09/05/2022 Office Visit Cardiology Trinity Reid MD [facility] CARDIOLOGY [place], [place] [address] (Wo rk) documented as of this encounter Procedures Procedure Name Priority Date/Time Associated Diagnosis Comme [facility] HEMOGRAM Routine 07/20/2019 8:18 Gastrointestinal Results for [...] Time Signature WBC 6.0 4.0 - 9.5 [facility] x10(3)/[facility] LABORATORY RBC 4.50 (L) 4.58 - [facility] x[facility](6[facility] LABORATORY Hemoglobin 14.8 13.7 - [facility] 16.5 gm/dL [facility] LABORATORY Hematocrit 43.9 40.5 - [facility] 48.5 % [facility] LABORATORY MCV 97.6 (H) 82.9 - [facility] 93.1 [facility] LABORATORY MCH 32.9 (H) 27.5 - [facility] 32.1 pg [facility] LABORATORY MCHC 33.7 32.0 - [facility] 35.7 gm/dL [facility] LABORATORY Platelets 164 145 - 357 [facility] x10(3)/[facility] LABORATORY RDWSD 49.3 (H) 36.0 - [facility] 45.0 [facility] LABORATORY RDWCV 13.6 11.4 - [facility] 13.8 % [facility] LABORATORY MPV 10.0 7.6 - 12.9 [facility] LABORATORY nRBC % Auto 0.0 % [facility] LABORATORY nRBC Abs Auto 0.000 0.000 - [facility] x10(3[facility] LABORATORY Specimen Anatomical Collection Method Collection Time Receive d Time (Source) Location / / Volume Laterality Blood specimen 07/20/2019 8:18 AM 019 8:21 (specimen) EDT AM EDT Resulting Agency Comment Spec In Lab Bobby Marshall MD HEMATOLOGY ORDERABLES Performing Organization Address City/State/[place] [address] Prothrombin Time (07/20/2019 8:18 AM EDT) P athologist Signature PT 11.3 9.4 - 12.5 [facility] LABORATORY INR 1.0 [facility] [...] Organization Address City/State/[place] [address] documented in this encounter Visit Diagnoses Diagnosis Gastrointestinal hemorrhage, unspecified gastrointestinal hemorrhage type documented in this encounter Care Teams Top And Seat Cover Fitter Relationship Specialty Start Date End Date Bobby Das MD PCP - General 10/02/[address] [place] [address] Dr [place], [place] [phone] documented as of this encounter
--- OUTSIDE RECORDS SUMMARY | 2022-07-05 12:37 | XMS_ITS | Encounter Summary ---
:1940 Author Organization [place] [address] Care Team Providers Name Role Phone Bobby Das MD Primary Care Provider Reason for Visit Reason Comments Shortness of Breath Encounter Details Date Type Department Care Team Description 09/17/2011 Office Visit [facility] Hosp Torrey Giang SOB (shortness of [address] Mendoza MD breath) (Primary Dx) [facility] [phone] CARDIOLOGY DEPT. [place] [address] Social History Tobacco Use Types Packs/Day Years [...] 08/08/2022 Office Visit Gastroenterology Negra Collins MD [facility] GASTROENTEROLOGY DEPT [place], [place] [address] (Wo rk) 09/05/2022 Appointment Cardiology Trinity Reid MD [facility] CARDIOLOGY [place], [place] [address] (Wo rk) 09/05/2022 Office Visit Cardiology Trinity Reid MD [facility] CARDIOLOGY [place], [place] [address] (Wo rk) documented as [...] breath documented in this encounter Care Teams Diamond Picker Relationship Specialty Start Date End Date Bobby Das MD PCP - General 10/02/[address] [place] [address] [place] [phone] documented as of this encounter
--- OUTSIDE RECORDS SUMMARY | 2022-07-05 12:37 | XMS_ITS | Encounter Summary ---
:1940 Author Organization [facility] [place] [address] Care Team Providers Name Role Phone Bobby Das MD Primary Care Provider Encounter Details Date Type Department Care Team Description 07/26/2015 External Results Medical Records Provider, Sc[facility] [place] [address] Social History Tobacco Use Types Packs/Day Years Used Date Current Some Day Smoker 1 50 Smokeless Tobacco: Never Used Sex Assigned at Date Recorded Not on file documented as of this encounter Plan of Treatment Upcoming Encounters Date Type Specialty Care Team Description 08/08/2022 Office Visit Gastroenterology Negra Collins MD [facility] GASTROENTEROLOGY DEPT [place], [place] [address] (Wo rk) 09/05/2022 Appointment Cardiology Trinity Reid MD [facility] CARDIOLOGY [place], [place] [address] (Wo rk) 09/05/2022 Office Visit Cardiology Trinity Reid MD [facility] CARDIOLOGY [place], [place] [address] (Wo rk) documented as of [...] on filedocumented in this encounter Care Teams Film Archivist Relationship Specialty Start Date End Date Bobby Das MD PCP - General 10/02/[address] [place] [address] [place] [phone] documented as of this encounter
--- OUTSIDE RECORDS SUMMARY | 2022-07-05 12:37 | XMS_ITS | Encounter Summary ---
:1940 Author Organization [facility] [place] [address] Care Team Providers Name Role Phone Bobby Das MD Primary Care Provider Encounter Details Date Type Department Care Team Description 05/13/2018 Ancillary Procedure Radiology Library at Bobby Almaguer MD [facility] [address] [place] [phone] (Wo rk) Social History Tobacco Use Types Packs/Day Years Used Date Current Some Day Smoker 1 50 Smokeless Tobacco: Never Used Sex Assigned at Date Recorded Not on file documented as of this encounter Plan of Treatment Upcoming Encounters Date Type Specialty Care Team Description 08/08/2022 Office Visit Gastroenterology Negra Collins MD [facility] DR GASTROENTEROLOGY DEPT [place], [place] [address] (Wo rk) 09/05/2022 Appointment Cardiology Trinity Reid MD [facility] CARDIOLOGY [place], [place] [address] (Wo rk) 09/05/2022 Office Visit Cardiology Trinity Reid MD [facility] CARDIOLOGY [place], [place] [address] (Wo rk) [...] Time / Laterality Volume Narrative INO - 06/29/2019 9:44 PM EDT This exam is auto-finalizing. It's purpo se is for storage only. Bobby Das MD IMG FILM LIBRARY ORDERABLES Performing Organization Address City/State/ZIP Code Phon e Number [place], [place] documented in this encounter Visit Diagnoses Not on filedocumented in this encounter Care Teams Bark Tanner Relationship Specialty Start Date End Date Bobby Das MD PCP - General 10/02/[address] [place] [address] [place] [address] documented as of this encounter
--- OUTSIDE RECORDS SUMMARY | 2022-07-05 12:37 | XMS_ITS | Encounter Summary ---
:1940 Author Organization [place] [address] Care Team Providers Name Role Phone Bobby Das MD Primary Care Provider Reason for Visit Reason Onset Date Comments Pre Procedure Call 08/01/2015 Encounter Details Date Type Department Care Team Description 08/01/2015 Telephone Dermatology at [facility] Cassy Jacobson, Pre Procedure Call [address] [place] [address] Social History Tobacco Use Types Packs/Day [...] 08/08/2022 Office Visit Gastroenterology Negra Collins MD [facility] DR GASTROENTEROLOGY DEPT [place], [place] [address] (Wo rk) 09/05/2022 Appointment Cardiology Trinity Reid MD [facility] CARDIOLOGY [place], [place] [address] (Wo rk) 09/05/2022 Office Visit Cardiology Trinity Reid MD [facility] CARDIOLOG[facility] [place], [place] [address] (Wo rk) documented as of this encounter Visit Diagnoses Not on filedocumented in this encounter Care Teams Quenching Car Operator Relationship Specialty Start Date End Date Bobby Das MD PCP - General 10/02/[address] [place] [address] [place] [phone] documented as of this encounter
--- OUTSIDE RECORDS SUMMARY | 2022-07-05 12:37 | XMS_ITS | Encounter Summary ---
:1940 Author Organization [facility] [place] [address] Care Team Providers Name Role Phone Bobby Das MD Primary Care Provider Reason for Visit Reason Comments Skin Check Encounter Details Date Type Department Care Team Description 03/29/2014 Office Visit Dermatology at [facility], Kyle c ell carcinoma (Primary Dx); Nba CARCAMO Verruca vulgaris; [address] [place] (actinic keratosis) [facility] B DERMATOLOGY [place], [place] [phone] Social History Tobacco Use Types Packs/Day Years [...] sun over the years. He lives in [place], [place]. Physical examination reveals a pleasant, 73-year-old gentleman who has a pearly, 1-cm papule on the right lateral canthus, site A; and a pearly papule about 8 mm in diameter, site C, on the right sabianism at the scalp line. At the central [...] BCCAs, right lateral canthus and right lateral sabianism, sites A and C, respectively. a. After [...] Visit Gastroenterology Negra Collins MD [facility] GASTROENTEROLOGY DEPT [place], [place] [address] (Wo rk) 09/05/2022 Appointment Cardiology Trinity Reid MD [facility] CARDIOLOGY [place], [place] [address] (Wo rk) 09/05/2022 Office Visit Cardiology Trinity Reid MD [facility] CARDIOLOGY [place], [place] [address] (Wo rk) documented as of this encounter Visit Diagnoses Diagnosis Basal cell carcinoma - Primary Basal cell carcinoma of skin, site unspe cified Verruca vulgaris Viral warts, unspecified [place] (actinic keratosis) Actinic keratosis documented in this encounter Care Teams Runner Worker Relationship Specialty Start Date End Date Bobby Das MD PCP - General 10/02/[address] [place] [address] [place] [address] documented as of this encounter
--- OUTSIDE RECORDS SUMMARY | 2022-07-05 12:37 | XMS_ITS | Encounter Summary ---
:1940 Author Organization [facility] Address [facility] [address] [place] [address] Care Team Providers Name Role Phone Bobby Das MD Primary Care Provider Reason for Visit - Closed Specialty Diagnoses / Procedures Referred By Contact Refer red To Contact Procedures Bobby Das MD Film Library- Storage Only [facility] [place] [address] Referral ID Status Reason Start Date Expiration Date Visits Requ ested Visits Authorized [id number] Closed 02/23/2021 02/23/2022 1 1 Encounter Details Date Type Department Care Team Description 03/16/2020 Ancillary Procedure Radiology Library at Bobby Almaguer MD [address] [phone] (Rebekah rojas) Social History Tobacco Use Types [...] Visit Gastroenterology Negra Collins MD [facility] GASTROENTEROLOGY DEPT [place], [place] [address] (Wo rk) 09/05/2022 Appointment Cardiology Trinity Reid MD [facility] ER CARDIOLOGY [place], [place] [address] (Wo rk) 09/05/2022 Office Visit Cardiology Trinity Reid MD [facility] ER CARDIOLOGY [place], [place] [address] (Wo rk) documented as of [...] Time / Laterality Volume Narrative RAD - 02/23/2021 12:56 PM EDT This exam is auto-finalizing. It's purpo se is for storage only. Bobby Das MD IMG FILM LIBRARY ORDERABLES Performing Organization Address City/State/ZIP Code Phon e Number [place], [place] documented in this encounter Visit Diagnoses Not on filedocumented in this encounter Care Teams Tie Presser Relationship Specialty Start Date End Date Bobby Das MD PCP - General 10/02/[address] [place] [address] [place] [phone] documented as of this encounter
--- OUTSIDE RECORDS SUMMARY | 2022-07-05 12:37 | XMS_ITS | Encounter Summary ---
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, sequela Closed compression fracture of L1 lumbar vertebra with delayed healing, subsequent encounter Malignant neoplasm of prostate bZigniew Thompson PA [facility] Interventionl Rad Procedures IR Vertebroplasty Lumbar Multiple Levels IR Vertebral Augmentation Lumbar Single Level [facility] [place] [address] [place] [address] Fax: Referral ID Status Reason Start Date Expiration Date Visits V isits Requested Authorized [id number] Closed Specialty 07/13/2019 07/12/2020 1 1 Service Requested iagnostic Test (Routine) - Closed Specialty Diagnoses / Procedures Referred By Contact Refer red To Contact Radiology Diagnoses Closed compression fracture of L1 lumbar vertebra with delayed healing, subsequent encounter Malignant neoplasm of prostate Zbigniew Thompson PA [facility] Interventionl Rad Procedures IR [place]opsy [place] [address] [place] [address] Fax: Referral ID Status Reason Start Date Expiration Date Visits V isits Requested Authorized [id number] Closed Specialty 07/13/2019 07/12/2020 1 1 Service Requested Reason for Visit Reason Comments Back Pain Consultation (ANDREINA) - Closed Specialty Diagnoses / Procedures Referred By Contact Refer red To Contact [facility] Diagnoses Collapsed vertebra, not elsewhere classified, lumbar region, subsequent encounter for fracture with routine healing Bobby Das MD [facility] [address] [place] [place] [address] [address] [place] [address] Phone: Fax: Referral ID Status Reason Start Date Expiration Date Visits V isits Requested Authorized [id number] Closed Consult, 06/30/2019 06/29/2020 1 1 [facility] Encounter Details Date Type Department Care Team Description 07/13/2019 Office Visit [facility] Sp[facility] Center Zbigniew Thompson, Closed compression fracture of L1 lumbar vertebra with delayed healing, subsequent encounter; at [facility] [place] Malignant ne[facility]; [facility] Age -related 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, sequela [place] [address] [phone] Social History Tobacco Use Types Packs/Day Years [...] Thompson, PA - 07/13/2019 2:40 PM EDT Kook Zamora is a 78-year-old gentleman I am [...] Gastroenterology Negra Collins MD [facility] DR GASTROENTEROLOGY DEPT [place], [place] [address] (Wo rk) 09/05/2022 Appointment Cardiology Trinity Reid MD [facility] CARDIOLOGY [place], [place] [address] (Wo rk) 09/05/2022 Office Visit Cardiology Trinity Reid MD [facility] CARDIOLOGY [place], [place] [address] (Wo rk) documented as of [...] made and a 13g a introducer needle ([employer]) was advanced through the right pedicle and [...] made an d a 13ga introducer needle ([employer]) was advanced through the left pedicle and [...] made and a 13g a introducer needle ([employer]) was advanced through the right pedicle and [...] made an d a 13ga introducer needle ([employer]) was advanced through the left pedicle and [...] made and a 13g a introducer needle ([employer]) was advanced through the right pedicle and [...] made an d a 13ga introducer needle ([employer]) was advanced through the left pedicle and [...] made and a 13g a introducer needle ([employer]) was advanced through the right pedicle and [...] made an d a 13ga introducer needle ([employer]) was advanced through the left pedicle and [...] sequela documented in this encounter Care Teams Job Forwarder Relationship Specialty Start Date End Date Bobby Das MD PCP - General 10/02/[address] [place] [address] [place] [phone] documented as of this encounter
--- OUTSIDE RECORDS SUMMARY | 2022-07-05 12:37 | XMS_ITS | Encounter Summary ---
:1940 Author Organization [facility] [place] [address] Care Team Providers Name Role Phone Bobby Das MD Primary Care Provider Reason for Referral Diagnostic Test (Routine) - Closed Specialty Diagnoses / Procedures Referred By Contact Refer red To Contact Radiology Diagnoses Compression fracture of T9 vertebra, initial encounter Alphonso Esquivel, DO [facility] Interventionl Rad Procedures IR Vertebroplasty Thoracic Single Level [facility] [place]AGNOST[place] [address] [place] [address] Referral ID Status Reason Start Date Expiration Date Visits V isits Requested Authorized [id number] Closed Specialty 10/13/2020 04/13/2022 1 1 Service Requested Encounter Details Date Type Department Care Team Description 10/13/[address] Orders [address] [facility] Alphonso Esquivel, Compression fracture [facility] DO of T9 vertebra, Drive [facility] [place] [place] [address] DIAGNOSTIC RADIOLOGY [place], [place] [address] Social History Tobacco Use Types [...] 08/08/2022 Office Visit Gastroenterology Negra Collins MD [facility] DR GASTROENTEROLOGY DEPT [place], [place] [address] (Wo rk) 09/05/2022 Appointment Cardiology Trinity Reid MD [facility] CARDIOLOGY [place], [place] [address] (Wo rk) 09/05/2022 Office Visit Cardiology Trinity Reid MD [facility] CARDIOLOGY [place], [place] [address] (Wo rk) documented as of [...] made and a 13g a introducer needle ([employer]) was advanced through the right pedicle and t o the ??T9 vertebral body during an intermittent fluoroscopic guidance. The [employer] biopsy cannula was advanced through the introducer [...] was made and a 13ga introducer needle ([employer]) was advanced through the left pedicle and [...] made and a 13g a introducer needle ([employer]) was advanced through the right pedicle and t o the T9 vertebral body during an intermittent fluoroscopic guidance. The [employer] biopsy cannula was advanced through the introducer [...] was made and a 13ga introducer needle ([employer]) was advanced through the left pedicle and [...] below. Alphonso Esquivel DO IMG IR ORDERABLES Prothrombin Time (10/25/2020 6:35 AM EST) athologist Signature PT 10.8 9.4 - 12.5 [facility] LABORATORY INR 1.0 [facility] LABORATORY Comment: An INR <2.0 indicates [...] Organization Address City/State/[place] [address] Platelet count (10/25/2020 6:35 AM EST) athologist Signature Platelets 192 145 - 357 [facility] x10(3)/[facility] LABORATORY Plat Immature 2.6 0.0 - 7.4 [facility] % % [facility] LABORATORY Comment: Limitation of the Immature Platelet Frac tion (IPF)-May be less reliable when the platelet count is less than 58m110/u L due to statistical imprecision. The IPF [...] in a decreased state of production. References: [employer] The Clinical Value of the Immature Platelet Fraction (IPF) in Cell Recovery Document Number [id number] 04/2011 [employer] The Role of the Imm ature Platelet Fraction (IPF) in the Differential Diagnosis of Thrombocytopen ia, Document [id number] V05 P003/23 Specimen Anatomical Collection Method Collection Time Receive d Time (Source) Location / / Volume Laterality Blood specimen 10/25/2020 6:35 AM 020 6:52 (specimen) EST AM EST Resulting Agency Comment Spec In Lab Alphonso Esquivel DO HEMATOLOGY ORDERABLES Performing Organization Address City/State/[place] [address] documented in this encounter Visit Diagnoses Diagnosis Compression fracture of T9 vertebra, ini tial encounter Compression fracture of T9 vertebra, ini tial encounter documented in this encounter Care Teams Maintenance Team Leader Relationship Specialty Start Date End Date Bobby Das MD PCP - General 10/02/[address] [place] [address] [place] [phone] documented as of this encounter
--- OUTSIDE RECORDS SUMMARY | 2022-07-05 12:37 | XMS_ITS | Encounter Summary ---
:1940 Author Organization [facility] [place] [address] Care Team Providers Name Role Phone Bobby Das MD Primary Care Provider Encounter Details Date Type Department Care Team Description 09/22/2020 Telephone Pain and Spine Leon reid at [facility] [place] [address] Social History Tobacco Use Types Packs/Day [...] a call back. Message forwarded to jerrod cody pain [facility] spine secretaries documented in this encounter Plan of Treatment Upcoming Encounters Date Type Specialty Care Team Description 08/08/2022 Office Visit Gastroenterology Negra Collins MD [facility] GASTROENTEROLOGY DEPT [place], [place] [address] (Wo rk) 09/05/2022 Appointment Cardiology Trinity Reid MD [facility] CARDIOLOGY [place], [place] [address] (Wo rk) 09/05/2022 Office Visit Cardiology Trinity Reid MD [facility] CARDIOLOGY [place], [place] [address] (Wo rk) documented as of this encounter Visit Diagnoses Not on filedocumented in this encounter Care Teams Garnisher Relationship Specialty Start Date End Date Bobby Das MD PCP - General 10/02/[address] [place] [address] [place] [address] documented as of this encounter
--- OUTSIDE RECORDS SUMMARY | 2022-07-05 12:37 | XMS_ITS | Encounter Summary ---
:1940 Author Organization [facility] [place] [address] Care Team Providers Name Role Phone Bobby Das MD Primary Care Provider Reason for Visit Reason Comments Suture / Staple Removal Encounter Details Date Type Department Care Team Description 08/31/2015 Clinical Support Dermatology at [place] Visit for suture Heat Nicol Estrella MD removal [address] [facility] [address] [facility] [phone] RD-DERMATOLOGY [place] [address] Social History Tobacco Use Types Packs/Day Years Used Date Current Some Day Smoker 1 50 Smokeless Tobacco: Never Used Sex Assigned at Date Recorded Not on file documented as of this encounter Progress Notes Jeni Franco LPN - 08/31/2015 2:47 PM EDT HPI: Patient is a 74 y.o. male with history of basal cell carcinoma, right anglican, s/p Mohs repairedby transposition flap repair who is presenting for suture removal. Denies complications. Exam: General: No acute distress Skin: Limited examination of right anglican shows a well-healed flap. There is no erythema, dehiscence, ecchymosis, or drainage. Assessment and Plan 1. Basal cell carcinoma, right anglican, s/p Mohs repaired by transposition flap repair [...] 08/08/2022 Office Visit Gastroenterology Negra Collins MD [facility] GASTROENTEROLOGY DEPT [place], [place] [address] (Wo rk) 09/05/2022 Appointment Cardiology Trinity Reid MD [facility] CARDIOLOGY [place], [place] [address] (Wo rk) 09/05/2022 Office Visit Cardiology Trinity Reid MD [facility] CARDIOLOGY [place], [place] [address] (Wo rk) documented as of this encounter Visit Diagnoses Diagnosis Visit for suture removal Encounter for removal of sutures documented in this encounter Care Teams Smudger Relationship Specialty Start Date End Date Bobby Das MD PCP - General 10/02/[address] [place] [address] [place] [phone] documented as of this encounter
--- OUTSIDE RECORDS SUMMARY | 2022-07-05 12:37 | XMS_ITS | Encounter Summary ---
:1940 Author Organization [facility] [place] [address] Care Team Providers Name Role Phone Bobby Das MD Primary Care Provider Encounter Details Date Type Department Care Team Description 07/25/2015 Hospital Encounter Laboratory Leo Solo, [facility] [place] [address]-DERMATOLOGY [place], [place] [address] (Wo rk) Social History Tobacco [...] 08/08/2022 Office Visit Gastroenterology Negra Collins MD [facility] GASTROENTEROLOGY DEPT [place], [place] [address] (Wo rk) 09/05/2022 Appointment Cardiology Trinity Reid MD [facility] CARDIOLOGY [place], [place] [address] (Wo rk) 09/05/2022 Office Visit Cardiology Trinity Reid MD [facility] ER CARDIOLOGY [place] [address] (Wo rk) documented as of this encounter Procedures Procedure Name Priority Date/Time Associated Diagnosis Comme nts SURGICAL PATHOLOGY Routine 07/25/2015 9:51 AM Res ults for this REPORT EDT procedure are i n the results section. documented in this encounter Results Surgical Pathology Report (07/25/2015 9:51 AM EDT) Component Value Ref Test Analysis Performed At [facility] Method Time Signature Surgical The signing pathologist has (i) examined the relevant preparation(s) for the [facility] Pathology specimen(s) and (ii) rendered or confirmed the diagnosis(e s). [facility] Report Accession Number: [id number] . ?Surgic al Pathology DIAGNOSIS CONSULTATION CASE Outside slides labeled [id number], collection date 07/03/2015 . Skin, right scientology, [...] CONSULTATION CASE A - 3 slides labeled [id number], collection date 07/03/2015. [id number] Report to: [facility] Surgical Pathology Department [facility], [address], 2nd Floor [address] [place], [place] ??[address] SPECIMEN PROCESSING [facility] ([facility]) pathology slide(s) are reviewed. ??Refer to Diagnosis and Specimen Submitted for specific case infor arpan. For the full text of the [facility] ([facility]) report(s) please refer to Non-DH Documentati on Pathology in the electronic health record (eDH). Specimen (Source) Anatomical Collection Method Collection Time Re ceived Time Location / / Volume Laterality 07/25/2015 9:51 AM EDT Leo Solo MD PATHOLOGY/CYTOLOGY ORDERABLE S Performing Organization Address City/State/[place] [address] [facility] documented in this encounter Visit Diagnoses Not on filedocumented in this encounter Care Teams Solar Installer Pv Relationship Specialty Start Date End Date Bobby Das MD PCP - General 10/02/[address] [place] [address] [place] [phone] documented as of this encounter
--- OUTSIDE RECORDS SUMMARY | 2022-07-05 12:37 | XMS_ITS | Encounter Summary ---
:1940 [place] [address] Care Team Providers Name Role Phone Bobby Das MD Primary Care Provider Encounter Details Date Type Department Care Team Description 10/13/2020 Notes Only Radiology at [facility] Alphonso Esquivel [facility] [place] [address] DIAGNOSTIC RADIOLOGY [phone] [place] [id number] (Wo rk) Social History Tobacco Use Types [...] 08/08/2022 Office Visit Gastroenterology Negra Collins MD [facility] GASTROENTEROLOGY DEPT [place], [place] [address] (Wo rk) 09/05/2022 Appointment Cardiology Trinity Reid MD [facility] CARDIOLOGY [place], [place] [address] (Wo rk) 09/05/2022 Office Visit Cardiology Trinity Reid MD [facility] CARDIOLOGY [place], [place] [address] (Wo rk) documented as of this encounter Visit Diagnoses Not on filedocumented in this encounter Care Teams Care Team Coordinator Scheduler Relationship Specialty Start Date End Date Bobby Das MD PCP - General 10/02/[address] [place] [address] [place] [phone] documented as of this encounter
--- OUTSIDE RECORDS SUMMARY | 2022-07-05 12:37 | XMS_ITS | Encounter Summary ---
:1940 [place] [address] Care Team Providers Name Role Phone Bobby Das MD Primary Care Provider Reason for Visit Reason Comments Wound Check Encounter Details Date Type Department Care Team Description 10/25/2015 Clinical Support Dermatology at Christine Gonzalez MD Follow up [facility] [address] [facility] [place] [address] [place] [address] [phone] (Wo rk) Social History Tobacco Use Types Packs/Day Years Used Date Current Some Day Smoker 1 50 Smokeless Tobacco: Never Used Sex Assigned at Date Recorded Not on file documented as of this encounter Progress Notes Leo Solo MD - 10/25/2015 1:01 PM EST CC: Wound check HPI: Patient is a 75 y.o. male with history of basal cell carcinoma, right sabianist, s/p Mohs, repaired by transposition flap on who presents for wound check. Denies complications. States when he blinks he can feel the scar tissue. ROS: Otherwise well. No other skin complaints. Exam: General: No acute distress Skin: Limited examination of right sabianist shows a well-healed flap with hypertrophy at the edge. Assessment and Plan 1. Basal cell carcinoma, right sabianist, s/p Mohs, repaired by transposition flap Kenalog [...] Collins MD [facility] DR GASTROENTEROLOGY DEPT [place], [place] [address] (Wo rk) 09/05/2022 Appointment Cardiology Trinity Reid MD [facility] CARDIOLOGY [place], [place] [address] (Wo rk) 09/05/2022 Office Visit Cardiology Trinity Reid MD [facility] CARDIOLOGY [place], [place] [address] (Wo rk) documented as of this encounter Visit Diagnoses Diagnosis Follow up documented in this encounter Care Teams Leaf Tinner Relationship Specialty Start Date End Date Bobby Das MD PCP - General 10/02/[address] [place] [address] [place] [phone] documented as of this encounter
--- OUTSIDE RECORDS SUMMARY | 2022-07-05 12:37 | XMS_ITS | Encounter Summary ---
:1940 Author Organization [facility] [place] [address] Care Team Providers Name Role Phone Bobby Das MD Primary Care Provider Encounter Details Date Type Department Care Team Description 08/06/2020 Ancillary Procedure Radiology at [facility] Amy Grimaldo [address] [place] [address] [address] [phone] NEUROSURGERY-N [place]ov[place], [place] [address] Social History Tobacco Use Types [...] Office Visit Gastroenterology Negra Collins MD [facility] GASTROENTEROLOGY DEPT [place], [place] [address] (Wo rk) 09/05/2022 Appointment Cardiology Trinity Reid MD [facility] CARDIOLOGY [place], [place] [address] (Wo rk) 09/05/2022 Office Visit Cardiology Trinity Reid MD [facility] CARDIOLOGY [place], [place] [address] (Wo rk) documented as of [...] Organization Address City/State/ZIP Code Phon e Number [place], [place] documented in this encounter Visit Diagnoses Not on filedocumented in this encounter Care Teams Capping Machine Operator Relationship Specialty Start Date End Date Bobby Das MD PCP - General 10/02/[address] [place] [address] [place] [phone] documented as of this encounter
--- OUTSIDE RECORDS SUMMARY | 2022-07-05 12:37 | XMS_ITS | Encounter Summary ---
:1940 Author Organization [place] [address] Care Team Providers Name Role Phone Bobby [...] Levels IR Vertebral Augmentation Lumbar Single Level [facility] [place] [address] [place] [address] Fax: Referral ID Status Reason Start Date Expiration Date Visits V isits Requested Authorized [id number] Closed Specialty 07/13/2019 07/12/2020 1 1 Service Requested iagnostic Test (Routine) - Closed Specialty Diagnoses / Procedures Referred By Contact Refer red To Contact Radiology Diagnoses Closed compression fracture of L1 lumbar vertebra with delayed healing, subsequent encounter Malignant neoplasm of prostate Zbigniew Thompson PA [facility] Interventionl Rad Procedures [place] [address] [place] [address] Fax: Referral ID Status Reason Start Date Expiration Date Visits V isits Requested Authorized [id number] Closed Specialty 07/13/2019 07/12/2020 1 1 Service [...] [facility] [place] [address] [place] [address] Fax: Referral ID Status Reason Start Date Expiration Date Visits V isits Requested Authorized [id number] Closed Specialty 07/13/2019 07/12/2020 1 1 Service Requested Encounter Details Date Type Department Care Team Description 07/20/2019 Hospital Encounter Radiology at [facility] Elmer Loya, Closed compression fracture of L1 lumbar vertebra with delayed healing, subsequent encounter; [facility] Malignant neoplasm of prostate; Drive [facility] Age-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 If it is after regular office hours, oron weekends or holidays, please call [phone] and ask to speak to the Hourly Associate on callfor Interventional Radiology. XXX You [...] of : 1940 AGE: 78 y.o. Address: [address] [place] [address] [place] [address] (home) Mobile: No relevant phone numbers on file. Referring Provider: Zbigniew Thompson REASON FOR VISIT: Order Questions Answers Where will study be performed? [facility] Radiology [120] Specify location Lumbar Reason for [...] Collins MD [facility] GASTROENTEROLOGY DEPT [place], [place] [address] (Wo rk) 09/05/2022 Appointment Cardiology Trinity Reid MD [facility] CARDIOLOGY [place], [place] 0375 (Wo rk) 09/05/2022 Office Visit Cardiology Trinity Reid MD [facility] CARDIOLOGY [place], [place] [address] (Wo rk) documented as of [...] made and a 13g a introducer needle (inkSIG Digital) was advanced through the right pedicle and [...] made an d a 13ga introducer needle (inkSIG Digital) was advanced through the left pedicle and [...] ? Electronically signed by: Bobby Sullivan MD, [facility] ([phone]), at 07/20/2019 1:20 PM Procedure Note Bobby [...] made and a 13g a introducer needle (inkSIG Digital) was advanced through the right pedicle and [...] made an d a 13ga introducer needle (inkSIG Digital) was advanced through the left pedicle and [...] For questions regarding this report, please contact [facility] number below. Elmer Loya MD IMG IR [...] made and a 13g a introducer needle (inkSIG Digital) was advanced through the right pedicle and [...] made an d a 13ga introducer needle (inkSIG Digital) was advanced through the left pedicle and [...] ? Electronically signed by: Bobby Sullivan MD, [facility] ([phone]), at 07/20/2019 1:20 PM Procedure Note Bobby [...] made and a 13g a introducer needle (inkSIG Digital) was advanced through the right pedicle and [...] made an d a 13ga introducer needle (inkSIG Digital) was advanced through the left pedicle and [...] below. Electronically signed by: Bobby Sullivan MD, [facility] ([phone]), at 07/20/2019 1:20 PM Elmer Loya MD IMG IR ORDERABLES Surgical Pathology Report (07/20/2019 10:45 AM EDT) Component Value Ref Test Analysis Performed At [facility] Method Time Signature Surgical [id number] ? [facility] The signing pathologist has (i) examined the relevant preparation(s) for the [facility] specimen(s) and (ii) rendered or confirmed the diagnosis(es) . HOSPITAL LABORATORY . ?Surgic al Pathology DIAGNOSIS A - Bone, L1; biopsy at vertebroplasty: ?Viable lamellar cancellous bone with scattered i ntertrabecular chronic ?inflammatory cells, and no evidence of metastatic pros mi cancer or ?other neoplasia (see Discussion). Electronically signed by: ??lJ Spence MD Verified: ??07/22/2019 ?Pathologist Performed at: ??-[facility] Dept. of Pathology, [place], [place] DISCUSSION Deeper levels into the biopsy [...] Organization Address City/State/[place] [address] Specimen to Pathology (07/20/2019 8:41 AM EDT) Specimen Anatomical Collection Method Collection Time Receive d Time (Source) Location / / Volume Laterality AP Specimen 07/20/2019 8:41 AM 9 8:41 EDT AM EDT Narrative [facility] LABOR[facility] - 07/20/2019 8:41 AM EDT Specimen requisition ordered. ??Separate Pathology report to follow Elmer Loya MD PATHOLOGY/CYTOLOGY ORDERABLE S Performing Organization Address City/State/[place] [address] documented in this encounter [...] 10 mg, Subcutaneous, ONCE, 1 dose, On Fri07/20/19 at 0915, For use in Interventional Radiology (IR) only for procedure with direct provider supervision and verbal order., Angio/IR (Intra-Procedure), Routine midazolam (PF) (VERSED) multi-dose injection Given 08/2019 10:45 AM EDT 0.5 mg 0.5-1 mg 0.5-1 mg, Intravenous, EVERY 3 MIN PRN, Starting on Fri07/20/19 at 0850, Until Fri07/20/19 at 1209, Sleep, [...] mg documented in this encounter Care Teams Shaker Tender Relationship Specialty Start Date End Date Bobby Das MD PCP - General 10/02/[address] [place] [address] [place] [id number] documented as of this encounter
--- OUTSIDE RECORDS SUMMARY | 2022-07-05 12:37 | XMS_ITS | Encounter Summary ---
:1940 Author Organization [facility] [place] [address] Care Team Providers Name Role Phone Bobby Das MD Primary Care Provider Encounter Details Date Type Department Care Team Description 12/13/2016 Telephone Pain Management [place] [address] Social History Tobacco Use Types Packs/Day [...] 08/08/2022 Office Visit Gastroenterology Negra Collins MD [facility] DR GASTROENTEROLOGY DEPT [place], [place] [address] (Wo rk) 09/05/2022 Appointment Cardiology Trinity Reid MD [facility] CARDIOLOGY [place], [place] [address] (Wo rk) 09/05/2022 Office Visit Cardiology Trinity Reid MD [facility] CARDIOLOGY [place], [place] [address] (Wo rk) documented as of this encounter Visit Diagnoses Not on filedocumented in this encounter Care Teams Business Data Analyst Relationship Specialty Start Date End Date Bobby Das MD PCP - General 10/02/[address] [place] [address] [place] [phone] documented as of this encounter
--- OUTSIDE RECORDS SUMMARY | 2022-07-05 12:37 | XMS_ITS | Encounter Summary ---
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 Chano Rebolledo MD [facility] Surg [address] [place] [address] [place] [address] [place] [address] Phone: Fax: Referral ID Status Reason Start Date Expiration Date Visits V isits Requested Authorized [id number] Denied Consult, 12/18/2016 12/18/2017 1 0 Test & Treat Encounter Details Date Type Department Care Team Description 12/18/2016 Telephone Pain Management at Chano Freitas MD [facility] [place] [address] PAIN CLINIC [phone] [place], [place] [address] (Wo rk) Social History Tobacco Use Types Packs/Day Years Used Date Current Some Day Smoker 1 50 Smokeless Tobacco: Never Used Sex Assigned at Date Recorded Not on file documented as of this encounter Miscellaneous Notes Telephone Encounter - Chano Rebolledo MD - 12/18/2016 12:[address] chest/abdomen/pelvis 27-17: 1. Lingular pulmonary nodule measuring 6 mm, [...] I will make a heme/oncology consultation with [facility] for the patient in the meantime. documented in this encounter Plan of Treatment Upcoming Encounters Date Type Specialty Care Team Description 08/08/2022 Office Visit Gastroenterology Negra Collins MD [facility] GASTROENTEROLOGY DEPT [place], [place] [address] (Wo rk) 09/05/2022 Appointment Cardiology Trinity Reid MD [facility] CARDIOLOGY [place], [place] [address] (Wo rk) 09/05/2022 Office Visit Cardiology Trinity Reid MD [facility] CARDIOLOGY [place], [place] [address] (Wo rk) Scheduled Referrals Name Type Priority Associated Diagnoses Order S chedule Referral to Outpatient Referral Routine Neoplasm of Ordered: Hematology and uncertain behavior 017 Oncology of respiratory organ documented as of this encounter Visit Diagnoses Diagnosis Neoplasm of uncertain behavior of respir atory organ Neoplasm of uncertain behavior of other and unspecified respiratory organs documented in this encounter Care Teams Envelope Sealing Machine Operator Relationship Specialty Start Date End Date Bobby Das MD PCP - General 10/02/[address] [place] [address] [place] [phone] documented as of this encounter
--- OUTSIDE RECORDS SUMMARY | 2022-07-05 12:37 | XMS_ITS | Encounter Summary ---
:1940 Author Organization [facility] Address [facility] [place] [address] Care Team Providers Name Role Phone Bobby Das MD Primary Care Provider Reason for Visit Reason Onset Date Comments Other 07/19/2011 Encounter Details Date Type Department Care Team Description 07/19/2011 Telephone Cardiology at [facility] Chet Nicole MD [facility] [place] [address] CARDIOLOGY DEPT. [phone] [place], [place] [address] (Wo rk) Social History Tobacco [...] 08/08/2022 Office Visit Gastroenterology Negra Collins MD [facility] GASTROENTEROLOGY DEPT [place], [place] [address] (Wo rk) 09/05/2022 Appointment Cardiology Trinity Reid MD [facility] CARDIOLOGY [place], [place] [address] (Wo rk) 09/05/2022 Office Visit Cardiology Trinity Reid MD [facility] CARDIOLOGY [place], [place] [address] (Wo rk) documented as of this encounter Visit Diagnoses Not on filedocumented in this encounter Care Teams Outdoor Adventure Instructor Relationship Specialty Start Date End Date Bobby Das MD PCP - General 10/02/[address] [place] [address] [place] [phone] documented as of this encounter
--- OUTSIDE RECORDS SUMMARY | 2022-07-05 12:37 | XMS_ITS | Encounter Summary ---
:1940 Author Organization [facility] [place] [address] Care Team Providers Name Role Phone Bobby Das MD Primary Care Provider Reason for Referral Diagnostic Test (Routine) - Specialty Diagnoses / Procedures Referred By Contact Refer ramila To Contact Radiology Diagnoses Chest pain, unspecified type Chronic abdominal pain Chano Rebolledo MD [facility] Rad Ct Scan Procedures CT Chest w Contrast CT Chest wo Contrast (Generic) [facility] [place] [address] [place] [address] Referral ID Status Reason Start Date Expiration Visits Visits Date Requested Authorized [id number] Specialty 12/13/2016 12/13/2017 1 1 Service Requested Consultation (Routine) - Closed Specialty Diagnoses / Procedures Referred By Contact Refer ramila To Contact Neurology Diagnoses Radiculopathy of cervical region Chano Rebolledo MD [facility] Neurology 3c [facility] [place] [address] [place] [address] Referral ID Status Reason Start Date Expiration Date Visits V isits Requested Authorized [id number] Closed Test Only 12/13/2016 12/13/2017 1 1 Diagnostic Test (Routine) - Closed Specialty Diagnoses / Procedures Referred By Contact Refer red To Contact Radiology Diagnoses Chest pain, unspecified type Chronic abdominal pain Chano Rebolledo MD [facility] Rad Ct Scan Procedures CT Abdomen & Pelvis w Contrast [facility] [place] [address] [place] [address] Referral ID Status Reason Start Date Expiration Date Visits V isits Requested Authorized [id number] Closed Specialty 12/13/2016 12/13/2017 1 1 Service Requested Reason for Visit Reason Comments Pain Management Neck Pain Bilateral Arm Pain burning across sternum and r ibs, both sides Consultation (Routine) - Closed Specialty Diagnoses / Procedures Referred By Contact Refer red To Contact Pain Management Diagnoses cervical radiculopathy Bobby Das MD [facility] [address] [place] [address] [address] [place], [place] [address] [address] [place] [address] Fax: Referral ID Status Reason Start Date Expiration Date Visits V isits Requested Authorized [id number] Closed Consult, 11/22/2016 11/22/2017 1 1 Test & Treat Encounter Details Date Type Department Care Team Description 12/13/2016 Office Visit Pain Management at [facility], Chest adrianna n, unspecified type; Jose Sullivan MD Chronic abdominal pain; [facility] Radiculop athy of cervical region [facility] [place] [address] [place] [address] Social History Tobacco Use Types [...] Rebolledo MD - 12/13/2016 1:00 PM EST [facility] [place] [address] Phone: PAIN MANAGEMENT NEW PATIENT / CONSULTATION NOTE DATE OF VISIT 12/13/2016 Patient Koko Zamora 1940 REFERRING PROVIDER Bobby Das MD [address] [place] [address] [place] [address] PRIMARY CARE PROVIDER Bobby Das MD CHIEF [...] (See Comments) 06/28/2011 MEDICATIONS The [place] and [place] Prescription Monitoring Program were checked & no [...] restless FUNCTIONAL /SOCIAL Lives with: 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 Follow up: -Patient will be called after results are obtained. Koko J Zamora had the opportunity to ask questions and indicated that all questions were answered to his satisfaction. Thank you for this referral, Bobby Das MD [address] [place] [address]. Chano Rebolledo MD Leonel Orozco MD - [...] 08/08/2022 Office Visit Gastroenterology Negra Collins MD [facility] DR GASTROENTEROLOGY DEPT [place], [place] [address] (Wo rk) 09/05/2022 Appointment Cardiology Trinity Reid MD [facility] CARDIOLOGY [place], [place] [address] (Wo rk) 09/05/2022 Office Visit Cardiology Trinity Reid MD [facility] CARDIOLOGY [place], [place] [address] (Wo rk) Scheduled Referrals Name [...] site documented in this encounter Care Teams Chuck Splitter Relationship Specialty Start Date End Date Bobby Das MD PCP - General 10/02/[address] [place] [address] [place] [phone] documented as of this encounter
--- OUTSIDE RECORDS SUMMARY | 2022-07-05 12:37 | XMS_ITS | Encounter Summary ---
:1940 Author Organization [facility] [place] [address] Care Team Providers Name Role Phone Bobby Das MD Primary Care Provider Reason for Visit Reason Comments Basal Cell Carcinoma Encounter Details Date Type Department Care Team Description 08/24/2015 Procedure visit Dermatology at [facility] Leo Solo BCC (basal cell Road MD Delores carcinoma of skin) [address] [facility] [address] [facility] [phone] [address] [address] Social History Tobacco Use Types Packs/Day Years [...] when the wound is well cared for. Rayle drainage or slight yellow film on your [...] the hospital number and ask for the Drag Out Man director of rehabilitation and wellness. Wound Care for Sutured Wounds You should [...] any questions, please call our clinic at [phone]. After 5PM and on weekends, please call the hospital number and ask for the Drag Out Man director of rehabilitation and wellness. documented in this encounter Progress Notes Leo Solo MD - 08/24/2015 3:25 PM EDT Operative Report Patient name: Koko Zamora : 1940 Date: 08/24/2015 Staff Surgeon: Leo Solo MD, PhD Macroeconomics Professor I: Cassy Jacobson, Yolanda Verdin, Etta Burciaga, Gloria Culver MD Title Vehicle Service Attendant: Kourtney Cabrera Pre-operative diagnosis: Basal cell carcinoma Post-operative diagnosis: Basal cell carcinoma Location: Right sabianist Procedure: Mohs micrographic surgery Indication for Mohs micrographic surgery: Critical anatomic location Stages: 2 Final defect size: 3.6 x 2.0 cm Stage I The nature and purpose of the procedure, associated risks, possible consequences and complications,and alternative forms of treatment were explained in detail. Informed consent and permission to takephotographs were obtained. The site was confirmed with the patient/authorized loss prevention representative/referring physician and a pre-operative time-out was [...] 08/24/2015 Staff Surgeon: Leo Solo MD, PhD Macroeconomics Professor I: Yolanda Rivera, Estefania Welch Clinical Diagnosis: 3.6 x 2.0 cm surgical defect secondary to Mohs microscopically controlled excision of basal cell carcinoma Location: Right sabianist Procedure: Transposition flap repair Due to the [...] Office Visit Gastroenterology Negra Collins MD [facility] GASTROENTEROLOGY DEPT [place], [place] [address] ([facility]) 09/05/2022 Appointment Cardiology Trinity Reid MD [facility] CARDIOLOGY [place], [place] [address] ([facility]) 09/05/2022 Office Visit Cardiology Trinity Reid MD [facility] CARDIOLOGY [place], [place] [address] ([facility]) documented as of this encounter Visit Diagnoses Diagnosis BCC (basal cell carcinoma of skin) Basal cell carcinoma of skin, site unspe cified documented in this encounter Care Teams Quality Consultant Relationship Specialty Start Date End Date Bobby Das MD PCP - General 10/02/[address] [place] [address] [place] [address] documented as of this encounter
--- OUTSIDE RECORDS SUMMARY | 2022-07-05 12:37 | XMS_ITS | Encounter Summary ---
:1940 Author Organization [place] [address] Care Team Providers Name Role Phone Bobby Das MD Primary Care Provider Encounter Details Date Type Department Care Team Description 12/16/2016 [facility] [place] [place] [address] Social History Tobacco Use Types Packs/Day [...] 08/08/2022 Office Visit Gastroenterology Negra Collins MD [facility] GASTROENTEROLOGY DEPT [place], [place] [address] (Wo rk) 09/05/2022 Appointment Cardiology Trinity Reid MD [facility] CARDIOLOGY [place], [place] [address] (Wo rk) 09/05/2022 Office Visit Cardiology Trinity Reid MD [facility] CARDIOLOGY [place], [place] [address] (Wo rk) documented as of this encounter Visit Diagnoses Not on filedocumented in this encounter Care Teams Rn Medical Surgical Relationship Specialty Start Date End Date Bobby Das MD PCP - General 10/02/[address] [place] [address] [place] [address] documented as of this encounter
--- OUTSIDE RECORDS SUMMARY | 2022-07-05 12:37 | XMS_ITS | Encounter Summary ---
:1940 Author Organization [facility] Address [facility] [place] [address] Care Team Providers Name Role Phone Bobby Das MD Primary Care Provider Reason for Visit Reason Comments Shortness of Breath Encounter Details Date Type Department Care Team Description 06/28/2011 Office Visit Cardiology at [facility] Chet Nicole SOB (shortness of breath) (P rimary Dx); [facility] GIB (gastrointestinal bleeding); Drive [facility] MVP (mitral valve prolapse) [place] [address] CARDIOLOGY DEPT. [phone] [place], [place] [address] Social History Tobacco Use Types [...] Giordano MD - 06/28/2011 4:15 PM EDT [facility] Cholesterol and Triglycerides Tests: About These Tests [...] 60 mg/dl is considered ideal. ?? Total orzlemmdrer-hj-NOW ratio: A ratio of 5:1 or lower is recommended. ?? LDL cholesterol: Between 100-129 mg/dL is recommended. Lower than 100 mg/dL is considered ideal. ?? VLDL cholesterol: 30 mg/dL or less is recommended. ?? Triglycerides: Lower than 150 mg/dL is recommended. Where can you learn more? Visit our health information library at [email or web address]. You can also view health information on [employer], your personal patient account. Log in or sign up today. Enter V788 in the search box to learn more about Cholesterol and Triglycerides Tests: About These Tests. ?? [id number] [employer]. Care instructions adapted under license by [facility]. This care instruction is for use with your licensed healthcare professional. If you have questionsabout a medical condition or this instruction, always ask your healthcare professional. [employer] disclaims any warranty or liability for your [...] valve prolapse) s/p repair Surgery done at [facility] in 2000 ??? Hypertriglyceridemia ??? Adhesive capsulitis of L shoulder ??? Alcohol use Medications: [place]-3 Fatty Acids-Vitamin E (FISH OIL) 1,000 mg [...] 08/08/2022 Office Visit Gastroenterology Negra Collins MD [facility] GASTROENTEROLOGY DEPT [place], [place] [address] (Wo rk) 09/05/2022 Appointment Cardiology Trinity Reid MD [facility] CARDIOLOGY [place], [place] [address] (Wo rk) 09/05/2022 Office Visit Cardiology Trinity Reid MD [facility] CARDIOLOGY [place], [place] [address] (Wo rk) documented as of this encounter Procedures Procedure Name Priority Date/Time Associated Diagnosis Comme nts EKG 12-LEAD Routine 06/28/2011 2:59 PM SOB (shortness of Resu lts for this EDT breath) procedure are i n the results section . documented in this encounter Results EKG 12 Lead (06/28/2011 2:59 PM EDT) [facility] gist Method Time Signature Ventricular rate 70 BPM MUSE SYSTEM Atrial Rate 70 BPM MUSE SYSTEM P-R Interval 182 ms MUSE SYSTEM QRS Duration 106 ms MUSE SYSTEM Q-T Interval 406 ms MUSE SYSTEM QTC Calculated 438 ms MUSE SYSTEM (Bezet) Calculated P [place] 60 degrees MUSE SYSTEM Calculated R [place] -51 degrees MUSE SYSTEM Calculated T [place] 32 degrees MUSE SYSTEM INTERPRETATION Normal sinus [...] disorders documented in this encounter Care Teams Maintenance Operator Relationship Specialty Start Date End Date Bobby Das MD PCP - General 10/02/[address] [place] [address] [place] [phone] documented as of this encounter
--- OUTSIDE RECORDS SUMMARY | 2022-07-05 12:37 | XMS_ITS | Encounter Summary ---
:1940 Author Organization [facility] [place] [address] Care Team Providers Name Role Phone Bobby Das MD Primary Care Provider Encounter Details Date Type Department Care Team Description 06/16/2019 Ancillary Procedure Radiology Library at Bobby Almaguer MD [facility] [address] [place] [phone] (Wo rk) Social History Tobacco Use Types Packs/Day Years Used Date Current Some Day Smoker 1 50 Smokeless Tobacco: Never Used Sex Assigned at Date Recorded Not on file documented as of this encounter Plan of Treatment Upcoming Encounters Date Type Specialty Care Team Description 08/08/2022 Office Visit Gastroenterology Negra Collins MD [facility] DR GASTROENTEROLOGY DEPT [place], [place] [address] (Wo rk) 09/05/2022 Appointment Cardiology Trinity Reid MD [facility] CARDIOLOGY [place], [place] [address] (Wo rk) 09/05/2022 Office Visit Cardiology Trinity Reid MD [facility] CARDIOLOGY [place], [place] [address] (Wo rk) documented as of [...] / Laterality Volume Narrative INO - 06/29/2019 9:48 PM EDT This exam is auto-finalizing. It's purpo se is for storage only. Bobby Das MD IMG FILM LIBRARY ORDERABLES Performing Organization Address City/State/ZIP Code Phon e Number [place], [place] documented in this encounter Visit Diagnoses Not on filedocumented in this encounter Care Teams Sequencing Machine Operator Relationship Specialty Start Date End Date Bobby Das MD PCP - General 10/02/[address] [place] [address] [place] [address] documented as of this encounter
--- OUTSIDE RECORDS SUMMARY | 2022-07-05 12:42 | XMS_ITS | Encounter Summary ---
:1940 Author Organization [facility] Address [address] [place] [address] Care Team Providers Name Role Phone Bobby Das MD Primary Care Provider Encounter Details Date Type Department Care Team Description 04/12/2021 Lab Requisition [facility] Outr Resulting Lab, Pathology & Laboratory Provider [facility] [address] [place], [place] [address] Social History Tobacco Use Types Packs/Day Years [...] nature Testosterone 269 229 - 902 ng/dL [facility] Specimen Blood - Venous blood (substance) Narrative [facility] - 04/12/2021 22:19 EDT The results of this assay can be falsley elevated due to the consumption of Biotin. Performing Organization Address City/State/ZIP Code Phon e Number [facility] [address] [place] [address] SERVICES documented in this encounter Visit Diagnoses Not on filedocumented in this encounter Care Teams Solar Energy Systems Designer Relationship Specialty Start Date End Date Bobby Das MD PCP - General 07/06/[address] [place] [address] ,[address] [place] [phone] documented as of this encounter
--- OUTSIDE RECORDS SUMMARY | 2022-07-05 12:42 | XMS_ITS | Encounter Summary ---
:1940 Author Organization [facility] Address [address] [place] [address] Care Team Providers Name Role Phone Bobby Das MD Primary Care Provider Encounter Details Date Type Department Care Team Description 10/03/2021 Lab Requisition [facility] Bobby Das Enc ounter for other Pathology & MD general examination Laboratory Medicine [address] [place] [address],[address] [facility] [address] [place], [place] [phone] [place] [phone] Social History Tobacco Use Types Packs/Day Years [...] EST) Note to Patient The following [facility] pathology results have CENTER been interpreted [...] is identified. Attestation By the signature [facility] Electronica lly below, the attending CENTER signed by Deejay, physician certifies LABORATORY Lis Platt MD on that they have 1) SERVICES 10/08/2021 at 1640 personally conducted a gross and/or microscopic examination of the described specimen(s), and/or personally interpreted the results of laboratory testing of the described specimen(s), and 2) personally rendered or confirmed the above diagnosis. Microscopic Sections consist of an [facility] Description excision of skin to CENTER [...] sections. Clinical History Firm lesion not [facility] healing; foreign body CENTER granuloma LABORATORY SERVICES Gross Description A. [facility] Received in formalin christina d with [...] SERVICES Toni Giordano 10/05/2021 8:15 Performing Lab [facility] Scanned Images [facility] Specimen Tissue - Skin (tissue) specimen (specime n) Performing Organization Address City/State/ZIP Code Phon e Number [facility] [address] [place] [address] SERVICES documented in this encounter Visit Diagnoses Diagnosis Encounter for other general examination documented in this encounter Care Teams Top Loader Relationship Specialty Start Date End Date Bobby Das MD PCP - General 07/06/[address] [place] [address] ,[address] [place] [address] documented as of this encounter
--- OUTSIDE RECORDS SUMMARY | 2022-07-05 12:42 | XMS_ITS | Clinical Summary ---
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 Cancer Staging: Clinical stage from 11/19: Stage IIB (cT2a, cN0, cM0, PSA: 12.8, Grade Group: 2) - Signed by Delores Gutierrez III, MD on 11/19/2017 Medical History Medical History Date Comments Cancer ([facility]) (HCC) Hyperlipidemia Family History Medical History Relation [...] T ype Group Dates MEDICARE MEDICARE A/B [id number] 2007-Pre [address] edicare GL sent [id number] [place] [address] [facility] [id number] 2021-Pre [address] Commercial GL [facility] sent [place], [place] [id number] COMPANY Koko Zamora Personal/Family Self 1940 [address] (Home) [place] [address] Koko Zamora Personal/Family Self 1940 [address] ([place]) [place] [address] Care Teams Licensed Practical Nurse Clinic Nurse Relationship Specialty Start Date End Date Bobby Das MD PCP - General 07/06/[address] [place] [address],[address] [place] [phone]
--- OUTSIDE RECORDS SUMMARY | 2022-07-05 12:42 | XMS_ITS | Encounter Summary ---
:1940 Author Organization [facility] Address [address] [place] [address] Care Team Providers Name Role Phone Bobby Das MD Primary Care Provider Encounter Details Date Type Department Care Team Description 08/03/2020 Lab Requisition [facility] Outr Resulting Lab, Pathology & Laboratory Provider [facility] [address] [place], [place] [phone] Social History Tobacco Use Types Packs/Day Years [...] (08/03/2020 12:22 EDT) COVID-19 rt-PCR NEGATIVE Negative [facility] Result Comment: LABORATORY 2019-novel Coronavirus [...] Address City/State/ZIP Code Phon e Number [facility] [place], [place] COVID-19 TESTING (08/03/2020 12:22 EDT) Pathologist [facility] COVID-19 rt-PCR NEGATIVE Negative [facility] Result Comment: LABORATORY 2019-novel Coronavirus [...] Administration's Emergency Use Authorization. Performing Lab [facility] LABORATORY SERVICES Specimen Swab Performing Organization Address City/State/ZIP Code Phon e Number [facility] [address] [place] [address] SERVICES [facility] [place], [place] documented in this encounter Visit Diagnoses Not on filedocumented in this encounter Care Teams Brakes Inspector Relationship Specialty Start Date End Date Bobby Das MD PCP - General 07/06/[address] [place] [address] ,[address] [place] [address] documented as of this encounter
--- OUTSIDE RECORDS SUMMARY | 2022-07-05 12:43 | XMS_ITS | Encounter Summary ---
:[address] [facility] Address [address] [place] [address] Care Team Providers Name Role Phone Bobby Das MD Primary Care Provider Encounter Details Date Type Department Care Team Description 07/16/2019 Phlebotomy Only [facility] Control And Recovery Special Tactics, Eboni barbosa neoplasm - [facility] Outpatient of prostate [address] [facility] ([facility]) (Primary [place], [place] Dx) [address] Social History Tobacco Use [...] DIAGNOSTIC of prostate procedure are i n ([facility]) the results section. documented in this encounter Results PSA TOTAL, DIAGNOSTIC (07/16/2019 9:30 EDT) PSA 0.1 0 - 6.5 ng/ml [facility] Comment: LABORATORY SERVICES Serum PSA concentration should not be interpreted as absolute evidence for the presence or absence of malignant disease. Assayed utilizing Siemens ([employer]) chemiluminescent technology. ??Values obtained by using different assay methods cannot be used interchangeably. Specimen Blood specimen (specimen) - Blood Performing Organization Address City/State/ZIP Code Phon e Number [facility] [address] [place] [address] SERVICES documented in this encounter Visit Diagnoses Diagnosis Malignant neoplasm of prostate ([facility]) (HCC) - Primary Malignant neoplasm of prostate documented in this encounter Orders Lab Orders Without Results Count Last Ordered Date st Ordered Date PSA TOTAL, DIAGNOSTIC 1 07/16/2019 documented in this encounter Care Teams Pelt Dropper Relationship Specialty Start Date End Date Bobby Das MD PCP - General 07/06/[address] [place] [address],[address] [place] [address] documented as of this encounter
--- OUTSIDE RECORDS SUMMARY | 2022-07-05 12:43 | XMS_ITS | Encounter Summary ---
:1940 Author Organization [facility] Address [address] [place] [address] Care Team Providers Name Role Phone Bobby Das MD Primary Care Provider Reason for Visit Reason Onset Date Comments Follow-up 01/12/2018 Encounter Details Date Type Department Care Team Description 01/12/2018 Telephone [facility] Radiation De Law RN Follow-up Oncology - [address] [address] Social History Tobacco Use Types Packs/Day Years Used Date Current Every Day Smoker Smokeless Tobacco: Never Used Sex Assigned at Date Recorded Not on file documented as of this encounter Miscellaneous Notes Telephone Encounter - Isela Law RN - 01/12/2018 8050 EST This is a planned post procedure [...] on filedocumented in this encounter Care Teams Php Architect Relationship Specialty Start Date End Date Bobby Das MD PCP - General 07/06/[address] [place] [address],[address] [place] [address] documented as of this encounter
--- OUTSIDE RECORDS SUMMARY | 2022-07-05 12:43 | XMS_ITS | Encounter Summary ---
:1940 Author Organization [facility] Address [address] [place] [address] Care Team Providers Name Role Phone Bobby Das MD Primary Care Provider Encounter Details Date Type Department Care Team Description 01/16/2018 Documentation Visit [facility] Santhosh Cosby Radiation Oncology - Main [address] [phone] Social History Tobacco Use Types Packs/Day Years Used Date Current Every Day Smoker Smokeless Tobacco: Never Used Sex Assigned at Date Recorded Not on file documented as of this encounter Progress Notes Santhosh Cosby - 01/16/2018 0920 EST SOCIAL WORK ASSESSMENT: Amount of Distress: 0 Practical Problems: None Family Problems: None Emotional Problems: None Physical Problems: None Spiritual/Baptist Concerns: No Other Problems: Social Work Assessment: [...] Prostate Cancer Living Arrangements: Pt lives in [place], [place] with his . They operate a [...] agreed to contact social work as needed. [facility] phone [phone] pager [phone] documented in this encounter Plan of Treatment Not on filedocumented as of this encounter Visit Diagnoses Not on filedocumented in this encounter Care Teams Colorist Formulator Relationship Specialty Start Date End Date Bobby Das MD PCP - General 07/06/[address] [place] [address],[address] [place] [phone] documented as of this encounter
--- OUTSIDE RECORDS SUMMARY | 2022-07-05 12:43 | XMS_ITS | Encounter Summary ---
:1940 Author Organization [facility] Address [address] [place] [address] Care Team Providers Name Role Phone Bobby Das MD Primary Care Provider Encounter Details Date Type Department Care Team Description 02/25/2018 Documentation Visit [facility] Adama Vargas RN Radiation Oncology - [address] [place] [address] [place] [address] Social History Tobacco Use Types Packs/Day Years Used Date Current Every Day Smoker Smokeless Tobacco: Never Used Sex Assigned at Date Recorded Not on file documented as of this encounter Progress Notes Lynn Vargas RN - 02/25/2018 5703 EDT Koko Zamora requested to be seen [...] on filedocumented in this encounter Care Teams Snow Technician Relationship Specialty Start Date End Date Bobby Das MD PCP - General 07/06/[address] [place] [address],[address] [place] [address] documented as of this encounter
--- OUTSIDE RECORDS SUMMARY | 2022-07-05 12:43 | XMS_ITS | Encounter Summary ---
:[address] [facility] Address [address] [place] [address] Care Team Providers Name Role Phone Bobby Das MD Primary Care Provider Reason for Visit Reason Onset Date Comments Medication Management 11/21/2017 Encounter Details Date Type Department Care Team Description 11/21/2017 Orders Only [facility] Radiation De Law RN Oncology - [address] [phone] Social History Tobacco Use Types Packs/Day Years [...] on filedocumented in this encounter Care Teams Pharmacy Intern Relationship Specialty Start Date End Date Bobby Das MD PCP - General 07/06/[address] [place] [address] ,[address] [place] [phone] documented as of this encounter
--- OUTSIDE RECORDS SUMMARY | 2022-07-05 12:43 | XMS_ITS | Encounter Summary ---
:1940 Author Organization [facility] Address [address] [place] [address] Care Team Providers Name Role Phone Bobby Das MD Primary Care Provider Reason for Visit Reason Comments Cancer Encounter Details Date Type Department Care Team Description 02/27/2018 Radiation Therapy [facility] Letty Gaitan RN Malignant neoplasm Visit Radiation Oncology [address] [place] [address] ([facility]) (Primary [address] [place], [place] Dx) [place] [phone] Social History Tobacco Use Types Packs/Day Years [...] encounter diagnosis was Malignant neoplasm of prostate ([facility]). Assessment: Assessment Completed By: Janae Gaitan [...] prostate documented in this encounter Care Teams Annealing Operator Relationship Specialty Start Date End Date Bobby Das MD PCP - General 07/06/[address] [place] [address] ,[address] [place] [phone] documented as of this encounter
--- OUTSIDE RECORDS SUMMARY | 2022-07-05 12:43 | XMS_ITS | Encounter Summary ---
:[address] [facility] Address [address] [place] [address] Care Team Providers Name Role Phone Bobby Das MD Primary Care Provider Reason for Visit Reason Comments Cancer Encounter Details Date Type Department Care Team Description 01/08/2018 Radiation Therapy [facility] Isela Law Ma lignant neoplasm of Visit Radiation Oncology - RN prostat e ([facility] Main [place] ([facility]) (Primary [address] [facility] Dx) [place] [address] Social History Tobacco Use Types [...] prostate documented in this encounter Care Teams Renewable Energy Trader Relationship Specialty Start Date End Date Bobby Das MD PCP - General 07/06/[address] [place] [address],[address] [place] [phone] documented as of this encounter
--- OUTSIDE RECORDS SUMMARY | 2022-07-05 12:43 | XMS_ITS | Encounter Summary ---
:1940 Author Organization [facility] Address [address] [place] [address] Care Team Providers Name Role Phone Bobby Das MD Primary Care Provider Reason for Visit Reason Onset Date Comments Follow-up 03/06/2018 Encounter Details Date Type Department Care Team Description 03/06/[address] [facility] Theron Rojas RN Follow-up Radiation Oncology - Main [address] [place] [id number] [place] [address] Social History Tobacco Use Types Packs/Day Years Used Date Current Every Day Smoker Smokeless Tobacco: Never Used Sex Assigned at Date Recorded Not on file documented as of this encounter Miscellaneous Notes Telephone Encounter - Rupal Rojas RN - 03/06/2018 1300 EDT I called and spoke with Koko [...] on filedocumented in this encounter Care Teams Rail Car Repairer Relationship Specialty Start Date End Date Bobby Das MD PCP - General 07/06/[address] [place] [address],[address] [place] [phone] documented as of this encounter
--- OUTSIDE RECORDS SUMMARY | 2022-07-05 12:43 | XMS_ITS | Encounter Summary ---
:1940 Author Organization [facility] Address [address] [place] [address] Care Team Providers Name Role Phone Bobby Das MD Primary Care Provider Encounter Details Date Type Department Care Team Description 01/08/2018 Hospital Encounter [facility] Aries Gutierrez Radiation Oncology - III, [facility] [address] [address] [address], [place] [phone] (Wo rk) Social History Tobacco Use Types [...] Code Departure Means Destination Home or Self Custodial documented in this encounter Plan of Treatment Not on filedocumented as of this encounter Visit Diagnoses Not on filedocumented in this encounter Care Teams House Moving Supervisor Relationship Specialty Start Date End Date Bobby Das MD PCP - General 07/06/[address] [place] [address],[address] [place] [address] documented as of this encounter
--- OUTSIDE RECORDS SUMMARY | 2022-07-05 12:43 | XMS_ITS | Encounter Summary ---
:1940 Author Organization [facility] Address [address] [place] [address] Care Team Providers Name Role Phone Bobby Das MD Primary Care Provider Reason for Visit Reason Comments Cancer Encounter Details Date Type Department Care Team Description 02/16/2018 Radiation Therapy [facility] Isela Law Ma lignant neoplasm of Visit Radiation Oncology - RN prostleonid e ([facility]) Main [place] (Primary Dx) [address] [place] [address] Social History Tobacco Use Types Packs/Day [...] encounter diagnosis was Malignant neoplasm of prostate ([facility]). Assessment: Assessment Completed By: Isela Law RN [...] prostate documented in this encounter Care Teams Automotive Warranty Administrator Relationship Specialty Start Date End Date Bobby Das MD PCP - General 07/06/[address] [place] [address],[address] [place] [address] documented as of this encounter
--- OUTSIDE RECORDS SUMMARY | 2022-07-05 12:43 | XMS_ITS | Encounter Summary ---
:1940 Author Organization [facility] Address [address] [place] [address] Care Team Providers Name Role Phone Abby Das MD Primary Care Provider Encounter Details Date Type Department Care Team Description 04/22/2018 Results Only [facility] Abby Das MD [phone] [place] [address],[address] [place], [place] [phone] (Wo rk) Social History Tobacco Use Types Packs/Day Years Used Date Current Every Day Smoker Smokeless Tobacco: Never Used Sex Assigned at Date Recorded Not on file documented as of this encounter Plan of Treatment Not on filedocumented as of this encounter Procedures Procedure Name Priority Date/Time Associated Diagnosis Comme [facility] SURGICAL PATHOLOGY Routine 04/22/2018 8:40 EDT Re sults for this procedure are i n the results section. documented in this encounter Results SURGICAL PATHOLOGY (04/22/2018 8:40 EDT) Pathology Report: SURGICAL PATHOLOGY REPORT [facility] Reports generated via electronic interface contain abram ginal data; LABORATORY however they are lacking the format of the original re port. SERVICES Caution should be taken when reading/interpreting unfo rmatted reports. Name: ? ETTA BAH ? Accession #: ? [id number] ? : ? 1940 (Age: 77) ??M [...] Organization Address City/State/ZIP Code Phon e Number [facility] LABORATORY [address] [place] [address] SERVICES documented in this encounter Visit Diagnoses Not on filedocumented in this encounter Care Teams Director Marketing Communications Relationship Specialty Start Date End Date Abby Das MD PCP - General 07/06/[address] [place] [address] ,[address] [place] [phone] documented as of this encounter
--- OUTSIDE RECORDS SUMMARY | 2022-07-05 12:43 | XMS_ITS | Encounter Summary ---
:1940 Author Organization [facility] Address [address] [place] [address] Care Team Providers Name Role Phone Bobby Das MD Primary Care Provider Reason for Visit Reason Comments Cancer Encounter Details Date Type Department Care Team Description 02/06/2018 Radiation Therapy [facility] Lynn Vargas RN Malignant neoplasm Visit Radiation Oncology [address] [facility] ([facility]) ([facility]) [address] [place] [address] (Primary Dx) [place] [address] Social History Tobacco Use Types Packs/Day Years [...] encounter diagnosis was Malignant neoplasm of prostate ([facility]). Assessment: Assessment Completed By: Lynn Vargas RN [...] Visit Diagnoses Diagnosis Malignant neoplasm of prostate ([facility]) (HCC) - Primary Malignant neoplasm of prostate documented in this encounter Care Teams Individual Pension Adviser Relationship Specialty Start Date End Date Bobby Das MD PCP - General 07/06/[address] [place] [address],[address] [place] [address] documented as of this encounter
--- OUTSIDE RECORDS SUMMARY | 2022-07-05 12:43 | XMS_ITS | Encounter Summary ---
:1940 Author Organization [facility] Address [address] [place] [address] Care Team Providers Name Role Phone Bobby Das MD Primary Care Provider Reason for Visit Reason Onset Date Comments Prostate Cancer 11/20/2017 Encounter Details Date Type Department Care Team Description 11/20/2017 Telephone [facility] Cancer Center Aries Gutierrez Cancer Radiation Oncology - III, [address] [address] [address], [place] [address] (Wo rk) Social History Tobacco Use Types Packs/Day Years Used Date Current Every Day Smoker Smokeless Tobacco: Never Used Sex Assigned at Date Recorded Not on file documented as of this encounter Miscellaneous Notes Telephone Encounter - eDlores Gutierrez III, MD - 11/20/2017 7356 EST RADIATION ONCOLOGY I spoke with Mr. Zamora by phone today. [facility] earlier todayreveals no evidence of metastatic disease. He is eager to start therapy. I discussed his care with Dr. José. We will coordinate initiation of androgen deprivation as soon as practical. He will return for fiducial marker placement in approximately 6 weeks, anticipate we will start his treatment approximately 2 months after his first injection. Sj Gutierrez MD Radiation Oncology [phone] (office) [phone] (pager) This note has been prepared with voice recognition software. Please excuse laborer errors. documented in this encounter Plan of Treatment Not on filedocumented as of this encounter Visit Diagnoses Diagnosis Malignant neoplasm of prostate (HCC-CMS) (HCC) - Primary Malignant neoplasm of prostate documented in this encounter Care Teams Diesel Dinkey Operator Relationship Specialty Start Date End Date Bobby Das MD PCP - General 07/06/[address] [place] [address],[address] [place] [address] documented as of this encounter
--- OUTSIDE RECORDS SUMMARY | 2022-07-05 12:43 | XMS_ITS | Encounter Summary ---
:1940 Author Organization [facility] Address [address] [place] [address] Care Team Providers Name Role Phone Bobby Das MD Primary Care Provider Encounter Details Date Type Department Care Team Description 01/08/2018 Procedure visit [facility] Cancer Center Aries Gutierrez Radiation Oncology - IIIMD [address] [address] [address], [place] [phone] (Wo rk) Social History Tobacco Use Types [...] prostate gland. DATE OF SERVICE: 01/08/2018 INDICATIONS: [id number], PSA 12.8 Winifred score 3+4 = 7 [...] return next week for radiation treatment planning. Deolres Gutierrez III, MD documented in this encounter [...] documented as of this encounter Care Teams Pet Adoption Counselor Relationship Specialty Start Date End Date Bobby Das MD PCP - General 07/06/[address] [place] [address] ,[address] [place] [address] documented as of this encounter
--- OUTSIDE RECORDS SUMMARY | 2022-07-05 12:43 | XMS_ITS | Encounter Summary ---
:1940 Author Organization [facility] Address [address] [place] [address] Care Team Providers Name Role Phone Bobby Das MD Primary Care Provider Encounter Details Date Type Department Care Team Description 10/29/[address] [facility]- Devi Unknown, Provider, [facility] [address] [facility] [phone] [place] [address] (Work) [phone] Social History Tobacco Use Types Packs/Day Years Used Date Never Assessed Sex Assigned at Date Recorded Not on file documented as of this encounter Discharge Disposition Disposition Code Departure Means Destination Home or Self [facility] documented in this encounter Plan of Treatment Not on filedocumented as of this encounter Visit Diagnoses Not on filedocumented in this encounter Care Teams Secretary To Board Of Commissioners Relationship Specialty Start Date End Date Bobyb Das MD PCP - General 07/06/[address] [place] [address],[address] [place] [address] documented as of this encounter
--- OUTSIDE RECORDS SUMMARY | 2022-07-05 12:43 | XMS_ITS | Encounter Summary ---
:1940 Author Organization [facility] Address [address] [place] [address] Care Team Providers Name Role Phone Bobby Das MD Primary Care Provider Encounter Details Date Type Department Care Team Description 11/20/2017 Results Only Imaging [facility]- Unknown, PRISM ProviderMD [phone] Social History Tobacco Use Types Packs/Day Years [...] on filedocumented in this encounter Care Teams Scout Leaser Relationship Specialty Start Date End Date Bobby Das MD PCP - General 07/06/[address] [place] [address],[address] [place] [address] documented as of this encounter
--- OUTSIDE RECORDS SUMMARY | 2022-07-05 12:43 | XMS_ITS | Encounter Summary ---
:[address] [facility] Address [address] [place] [address] Care Team Providers Name Role Phone Bobby Das MD Primary Care Provider Reason for Visit Reason Onset Date Comments Medication Management 02/16/2018 Encounter Details Date Type Department Care Team Description 02/16/2018 Orders Only [facility] Radiation De Law hvac manager - [address] [id number] Social History Tobacco Use Types Packs/Day Years [...] on filedocumented in this encounter Care Teams Legal Arbitrator Relationship Specialty Start Date End Date Bobby Das MD PCP - General 07/06/[address] [place] [address],[address] [place] [address] documented as of this encounter
--- OUTSIDE RECORDS SUMMARY | 2022-07-05 12:43 | XMS_ITS | Encounter Summary ---
:1940 Author Organization [facility] Address [address] [place] [address] Care Team Providers Name Role Phone Bobby Das MD Primary Care Provider Reason for Visit Reason Comments Prostate Cancer Encounter Details Date Type Department Care Team Description 02/23/2018 Radiation Therapy [facility] Aries Gutierrez alignant neoplasm Visit Radiation Oncology Felix EAST MD of [facility] - [address] ([facility]) (Primary [address] [place] [address] Dx) [facility], [address] [place] [address] [address] [place] [address] Social History Tobacco Use Types [...] encounter diagnosis was Malignant neoplasm of prostate ([facility]). Assessment: Assessment Completed By: Felix Gutierrez MD (02/23/18 4182) Radiation Therapy: Cumulative RT Dose 4800 cGy [...] Dr. King Sj Gutierrez MD Radiation Oncology [phone] (office) [phone] (pager) documented in this encounter Plan of Treatment Not on filedocumented as of this encounter Visit Diagnoses Diagnosis Malignant neoplasm of prostate (HCC-CMS) (HCC) - Primary Malignant neoplasm of prostate documented in this encounter Care Teams Computer Networking Instructor Relationship Specialty Start Date End Date Bobby Das MD PCP - General 07/06/[address] [place] [address] ,[address] [place] [address] documented as of this encounter
--- OUTSIDE RECORDS SUMMARY | 2022-07-05 12:43 | XMS_ITS | Encounter Summary ---
:1940 Author Organization [facility] Address [address] [place] [address] Care Team Providers Name Role Phone Bobby Das MD Primary Care Provider Reason for Visit Reason Comments Prostate Cancer Encounter Details Date Type Department Care Team Description 02/17/2018 Radiation Therapy [facility] Aries Gutierrez alignant neoplasm Visit Radiation Oncology Felix EAST MD of [facility] - [address] ([facility]) (Primary [address] [facility] Dx) [facility], [address] [place] [address] [address] [place] [address] Social History Tobacco Use Types Packs/Day Years Used Date Current Every Day Smoker Smokeless Tobacco: Never Used Sex Assigned at Date Recorded Not on file documented as of this encounter Progress Notes Delores Gutierrez III, MD - 02/17/2018 1116 EDT On Treatment Visit Assessment: Koko Zamora is currently receiving radiation therapy treatment and is being seen today for his weekly on treatment visit. The encounter diagnosis was Malignant neoplasm of prostate ([facility]). Assessment: Assessment Completed By: Felix Gutierrez MD (02/17/18 4332) Radiation Therapy: Cumulative RT Dose 3600 cGy [...] Changes: None Sj Gutierrez MD Radiation Oncology [phone] (office) [phone] (pager) documented in this encounter Plan of Treatment Not on filedocumented as of this encounter Visit Diagnoses Diagnosis Malignant neoplasm of prostate (HCC-CMS) (HCC) - Primary Malignant neoplasm of prostate documented in this encounter Care Teams Banquet Server On Call Relationship Specialty Start Date End Date Bobby Das MD PCP - General 07/06/[address] [place] [address] ,[address] [place] [address] documented as of this encounter
--- OUTSIDE RECORDS SUMMARY | 2022-07-05 12:43 | XMS_ITS | Encounter Summary ---
:1940 Author Organization [facility] Address [address] [place] [address] Care Team Providers Name Role Phone Bobby Das MD Primary Care Provider Encounter Details Date Type Department Care Team Description 10/29/2017 Results Only [facility] [place] Erlin José MD Urology - [address] [address] [address], [place] [phone] (Wo rk) Social History Tobacco Use Types Packs/Day Years Used Date Never Assessed Sex Assigned at Date Recorded Not on file documented as of this encounter Plan of Treatment Not on filedocumented as of this encounter Procedures Procedure Name Priority Date/Time Associated Diagnosis Comme [facility] SURGICAL PATHOLOGY Routine 10/29/2017 8:21 EST Re sults for this procedure are i n the results section. documented in this encounter Results SURGICAL PATHOLOGY (10/29/2017 8:21 EST) Pathology SURGICAL PATHOLOGY REPORT [facility] MEDICAL Report: Reports generated via electronic interface conta in original data; CENTER LAB[facility]ORY however they are lacking the format of the original re port. SERVICES Caution should be taken when reading/interpreting unfo rmatted reports. Name: ? ETTA BAH ? Accession #: ? [id number] ? : ? 1940 (Age: 77) ??M [...] to 6: Prognostic Grad e Group I Seattle score 3+4=7: Prognostic Grade Group II [place] score 4+3=7: Prognostic Grade Group III Winifred score 8: Prognostic Grade Group IV Winifred score 9-10: Prognostic Grade Group V References for Prognostic Grade Groups: J Clin Hercules 2012;30:6465-8304 Joey CASTAÑEDA. The Winifred Grading System (A Comple te Guide for Pathologists and Clinicians), LWW, 2013 Serg PM, Shell PW, Edward AW, Joey JI. Progno stic Winifred Grade Grouping: Data based on the modified Seattle scoring s yste. BJU Int 2013;111:753-760 A. [...] leason pattern: ? Grade 3 ?- ??Secondary Seattle pattern: ? Grade 3 ?- ??Total Gle [...] of 2 cores. ? - Global tumor Seattle score: ?3 + 4 = 7 (30% [...] Address City/State/ZIP Code Phon e Number [facility] [address] [place] [address] SERVICES documented in this encounter Visit Diagnoses Not on filedocumented in this encounter Care Teams Extractor And Wringer Operator Relationship Specialty Start Date End Date Bobby Das MD PCP - General 07/06/[address] [place] [address] ,[address] [place] [address] documented as of this encounter
--- OUTSIDE RECORDS SUMMARY | 2022-07-05 12:43 | XMS_ITS | Encounter Summary ---
:1940 Author Organization [facility] Address [address] [place] [address] Care Team Providers Name Role Phone Unknown, Provider Primary Care Provider Encounter Details Date Type Department Care Team Description 07/03/2015 Results Only [facility]- PRISM Abby Das MD [phone] [place] [address],[address] [place], [place] [phone] (Wo rk) Social History Tobacco Use Types Packs/Day Years Used Date Never Assessed Sex Assigned at Date Recorded Not on file documented as of this encounter Plan of Treatment Not on filedocumented as of this encounter Procedures Procedure Name Priority Date/Time Associated Diagnosis Comme [facility] SURGICAL PATHOLOGY Routine 07/03/2015 8:54 EDT Re sults for this procedure are i n the results section. documented in this encounter Results SURGICAL PATHOLOGY (07/03/2015 8:54 EDT) Pathology Report: SURGICAL PATHOLOGY REPORT [facility] Reports generated via electronic interface contain abram ginal data; LABORATORY however they are lacking the format of the original re port. SERVICES Caution should be taken when reading/interpreting unfo rmatted reports. Name: ? ETTA BAH ? Accession #: ? [id number] ? : ? 1940 (Age: 74) ??M ? Collect Date: ? 07/03/2015 ? Location: ? [facility] ? Receive Date: ? 07/04/20 15 ? Provider: ABBY DAS MD Copy to: ? Final Pathologic Diagnosis: SKIN OF BUDDHIST, RIGHT, EXCISION: - Basal cell carcinoma, infiltrative [...] the above diagnosi s. Specimen(s) Received: R restoration Clinical History: Basal cell carcinoma reexcision Gross [...] Organization Address City/State/ZIP Code Phon e Number [facility] [address] [place] [address] SERVICES documented in this encounter Visit Diagnoses Not on filedocumented in this encounter Care Teams Funeral Home Director Relationship Specialty Start Date End Date Unknown, Provider, PCP - General 07/03/15 07/05/15 documented as of this encounter
--- OUTSIDE RECORDS SUMMARY | 2022-07-05 12:43 | XMS_ITS | Encounter Summary ---
:1940 Author Organization [facility] Address [address] [place] [address] Care Team Providers Name Role Phone Bobby Das MD Primary Care Provider Reason for Visit Reason Comments Prostate Cancer Follow up Encounter Details Date Type Department Care Team Description 07/16/2019 Office Visit [facility] Cancer Center Aries Gutierrez neoplasm of Radiation Oncology - Felix EAST MD prostate ([facility]) Main [address] (Primary Dx) [address] [place] [id number] [place] [address], [place] [phone] [facility] [address] [place] [address] (Wo rk) Social History Tobacco [...] DATE OF SERVICE: 07/16/2019 DIAGNOSIS AND STAGE: [id number], PSA 12.8 Winifred score 3+4 = 7 [...] this point. He is being evaluated at [facility] next week for possible tuboplasty. With [...] prepared with voice recognition software. Please excuse plastic extrusion operator errors. documented in this encounter Plan [...] ORAL) added in this encounter Care Teams Piece Dye Worker Relationship Specialty Start Date End Date Bobby Das MD PCP - General 07/06/[address] [place] [address],[address] [place] [address] documented as of this encounter
--- OUTSIDE RECORDS SUMMARY | 2022-07-05 12:43 | XMS_ITS | Encounter Summary ---
:1940 Author Organization [facility] Address [address] [place] [address] Care Team Providers Name Role Phone Bobby Das MD Primary Care Provider Encounter Details Date Type Department Care Team Description 07/16/2019 Hospital Encounter [facility] - Dayne Gutierrez [facility] III, MD [phone] [place] [address] [facility] [address] [place] [address] (Wo rk) Social History Tobacco [...] on filedocumented in this encounter Care Teams Special Education Math Teacher Relationship Specialty Start Date End Date Bobby Das MD PCP - General 07/06/[address] [place] [address] ,[address] [place] [address] documented as of this encounter
--- OUTSIDE RECORDS SUMMARY | 2022-07-05 12:43 | XMS_ITS | Encounter Summary ---
:1940 Author Organization [facility] Address [address] [place] [address] Care Team Providers Name Role Phone Bobby Das MD Primary Care Provider Reason for Visit Reason Onset Date Comments Cancer 03/18/2018 Encounter Details Date Type Department Care Team Description 03/18/2018 Telephone [email or web address] Cancer Center Aries Gutierrez II, Cancer Radiation Oncology - [address] [address] [address], [place], [place] [address] (Wo rk) Social History Tobacco Use Types Packs/Day Years Used Date Current Every Day Smoker Smokeless Tobacco: Never Used Sex Assigned at Date Recorded Not on file documented as of this encounter Miscellaneous Notes Telephone Encounter - Delores Gutierrez III, MD - 03/18/2018 8103 EDT RADIATION ONCOLOGY Mr. Zamora called the [...] this month. Sj Gutierrez MD Radiation Oncology [phone] (office) [phone] (pager) This note has been prepared with voice recognition software. Please excuse scrap drop operator errors. documented in this encounter Plan of Treatment Not on filedocumented as of this encounter Visit Diagnoses Not on filedocumented in this encounter Care Teams Gameplay Engineer Relationship Specialty Start Date End Date Bobby Das MD PCP - General 07/06/[address] [place] [address] ,[address] [place] [address] documented as of this encounter
--- OUTSIDE RECORDS SUMMARY | 2022-07-05 12:43 | XMS_ITS | Encounter Summary ---
:1940 Author Organization [facility] Address [address] [place] [address] Care Team Providers Name Role Phone Unknown, Provider Primary Care Provider Encounter Details Date Type Department Care Team Description 07/03/2015 Hospital Encounter [facility]- Devi Unknown, Provider, [facility] 0 [facility] [phone] [place] [address] (Work) [phone] Social History Tobacco Use Types Packs/Day Years Used Date Never Assessed Sex Assigned at Date Recorded Not on file documented as of this encounter Discharge Disposition Disposition Code Departure Means Destination Home or Self Jail documented in this encounter Plan of Treatment Not on filedocumented as of this encounter Visit Diagnoses Not on filedocumented in this encounter Care Teams Cable Engineer Outside Plant Relationship Specialty Start Date End Date Unknown, Provider, PCP - General 07/03/15 07/05/15 documented as of this encounter
--- OUTSIDE RECORDS SUMMARY | 2022-07-05 12:43 | XMS_ITS | Encounter Summary ---
:1940 Author Organization [facility] Address [address] [place] [address] Care Team Providers Name Role Phone Bobby Dsa MD Primary Care Provider Reason for Visit Reason Comments Cancer Encounter Details Date Type Department Care Team Description 02/24/2018 Radiation Therapy [facility] Isela Law Ma lignant neoplasm of prostate (HCC-CMS) (Primary Dx); Visit Radiation Oncology - DION roldan deprivation therapy Main [place] [address] [place] [address] Social History Tobacco Use Types Packs/Day [...] Visit Diagnoses Diagnosis Malignant neoplasm of prostate ([facility]) (HCC) - Primary Malignant neoplasm of prostate Androgen deprivation therapy Encounter for therapeutic drug monitorin g documented in this encounter Care Teams Hvac Manager Relationship Specialty Start Date End Date Bobby Das MD PCP - General 07/06/[address] [place] [address] ,[address] [place] [address] documented as of this encounter
--- OUTSIDE RECORDS SUMMARY | 2022-07-05 12:43 | XMS_ITS | Encounter Summary ---
:1940 Author Organization [facility] Address [address] [place] [address] Care Team Providers Name Role Phone Bobby Das MD Primary Care Provider Reason for Visit Reason Comments Follow-up Injection Encounter Details Date Type Department Care Team Description 01/05/2018 Office Visit [facility] Erlin José MD Malignant neoplasm of Urology - Main [address] [place] [address] ([facility] ([facility]) (Primary 111 [facility] [place] [address] [address], [place] [address] (Wo rk) Social History Tobacco [...] Progress Notes Chino José MD - 01/05/2018 1961 EST Chief Complaint: Chief Complaint Patient presents with ??? Follow-up Injection HPI: Koko is a 77 y.o. male with prostate cancer. 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 He previously had [...] Dr. Gutierrez this week See me at [facility] after radiation therapy is complete with a [...] DEPOT) injection 22.5 mg 22.5 mg, intramuscular, Once (NO Time Specified), 1 dose, Starting on Fri01/05/18 at 0948, Until Fri01/05/18 at 0959, Routine documented in this encounter Orders Medications Ordered That Might Not Have Count Last Ord ered Date First Ordered Date Been Administered leuprolide (LUPRON DEPOT) injection 22.5 1 018 mg documented in this encounter Care Teams Armored Vehicle Officer Relationship Specialty Start Date End Date Bobby Das MD PCP - General 07/06/[address] [place] [address],[address] [place] [address] documented as of this encounter
--- OUTSIDE RECORDS SUMMARY | 2022-07-05 12:43 | XMS_ITS | Encounter Summary ---
:1940 Author Organization [facility] Address [address] [place] [address] Care Team Providers Name Role Phone Bobby Das MD Primary Care Provider Encounter Details Date Type Department Care Team Description 02/08/2018 Hospital Encounter [facility] Aries Gutierrez Radiation Oncology - III, [facility] 111 [facility] [address] [place] [address] [address], [place] [address] (Wo rk) Social History Tobacco Use Types [...] Code Departure Means Destination Home or Self Long Term documented in this encounter Plan of Treatment Not on filedocumented as of this encounter Visit Diagnoses Not on filedocumented in this encounter Care Teams Ad Operations Coordinator Relationship Specialty Start Date End Date Bobby Das MD PCP - General 07/06/[address] [place] [address],[address] [place] [phone] documented as of this encounter
--- OUTSIDE RECORDS SUMMARY | 2022-07-05 12:43 | XMS_ITS | Encounter Summary ---
:1940 Author Organization [facility] Address [address] [place] [address] Care Team Providers Name Role Phone Bobby Das MD Primary Care Provider Encounter Details Date Type Department Care Team Description 06/17/2019 Results Only Imaging [facility]- Unknown, PRISM ProviderMD [phone] Social History Tobacco Use Types Packs/Day Years [...] on filedocumented in this encounter Care Teams Folder Tier Relationship Specialty Start Date End Date Bobby Das MD PCP - General 07/06/[address] [place] [address] ,[address] [place] [address] documented as of this encounter
--- OUTSIDE RECORDS SUMMARY | 2022-07-05 12:43 | XMS_ITS | Encounter Summary ---
:1940 Author Organization [facility] Address [address] [place] [address] Care Team Providers Name Role Phone Bobby Das MD Primary Care Provider Reason for Visit Reason Onset Date Comments Prostate Cancer 11/20/2017 Encounter Details Date Type Department Care Team Description 11/20/2017 Orders Only [facility] Cancer Center Aries Gutierrez Radiation Oncology - [facility], [address] [address] [address], [place], [place] [address] (Wo rk) Social History Tobacco Use Types [...] on filedocumented in this encounter Care Teams Barrel Tester Relationship Specialty Start Date End Date Bobby Das MD PCP - General 07/06/[address] [place] [address] ,[address] [place] [address] documented as of this encounter
--- OUTSIDE RECORDS SUMMARY | 2022-07-05 12:43 | XMS_ITS | Encounter Summary ---
:1940 Author Organization [facility] Address [address] [place] [address] Care Team Providers Name Role Phone Bobby Das MD Primary Care Provider Encounter Details Date Type Department Care Team Description 01/16/[address] [facility] Cancer Center Aries Gutierrez Imaging Radiation Oncology - III, [facility] [address] [facility] [address] [place] [address] Pavilion, [place] [address] (Wo rk) Social History Tobacco Use Types [...] filedocumented in this encounter Care Teams Network Announcer Relationship Specialty Start Date End Date Bobby Das MD PCP - General 07/06/[address] [place] [address] ,[address] [place] [address] documented as of this encounter
--- OUTSIDE RECORDS SUMMARY | 2022-07-05 12:43 | XMS_ITS | Encounter Summary ---
:1940 Author Organization [facility] Address [address] [place] [address] Care Team Providers Name Role Phone Bobby Das MD Primary Care Provider Encounter Details Date Type Department Care Team Description 01/08/2019 Orders Only [facility] Cancer [place] Aries Gutierrez neoplasm of Radiation Oncology - Felix EAST MD prostate ([facility]) [address] (Primary Dx) [address] [place] [address] [facility] [phone] [facility] [address] [place] [address] (Wo rk) Social History Tobacco Use Types Packs/Day Years Used Date Current Every Day Smoker Smokeless Tobacco: Never Used Sex Assigned at Date Recorded Not on file documented as of this encounter Plan of Treatment Not on filedocumented as of this encounter Results PSA TOTAL, DIAGNOSTIC (07/16/2019 9:30 EDT) PSA 0.1 0 - 6.5 ng/ml [facility] Comment: LABORATORY SERVICES Serum PSA concentration should not be interpreted as absolute evidence for the presence or absence of malignant disease. Assayed utilizing Siemens ([employer]) chemiluminescent technology. ??Values obtained by using different assay methods cannot be used interchangeably. Specimen Blood specimen (specimen) - Blood Performing Organization Address City/State/ZIP Code Phon e Number [facility] LABORATORY [address] [place] [address] SERVICES documented in this encounter Visit Diagnoses Diagnosis Malignant neoplasm of prostate ([facility]) (HCC) - Primary Malignant neoplasm of prostate documented in this encounter Care Teams Bread Oven Operator Relationship Specialty Start Date End Date Bobby Das MD PCP - General 07/06/[address] [place] [address],[address] [place] [phone] documented as of this encounter
--- OUTSIDE RECORDS SUMMARY | 2022-07-05 12:43 | XMS_ITS | Encounter Summary ---
:1940 Author Organization [facility] Address [address] [place] [address] Care Team Providers Name Role Phone Bobby Das MD Primary Care Provider Reason for Visit Reason Comments Follow-up Encounter Details Date Type Department Care Team Description 12/02/2017 Office Visit [facility] Erlin José MD Malignant neoplasm of Urology - [address] ([facility]) (Primary [address] [facility], [facility] [place] [address] Pavilion, [place] [address] (Wo rk) Social History Tobacco [...] Progress Notes Chino José MD - 12/02/2017 9133 EST Chief Complaint: Chief Complaint Patient presents with ??? Follow-up HPI: Koko is a 77 y.o. male with prostate cancer. I originally saw the patient and [facility] and diagnosed him with [place] 3+4 prostate cancer associated with a PSA of 12.8. He underwent a bone scan for staging that came back negative for metastatic disease. He is seeing me today at [facility] for a Lupron injection. He started [...] ( desire to have sex ). Some assistant terminal manager hormonal therapy is associated with the loss [...] injection 7.5 mg EST 7.5 mg, intramuscular, Once (NO Time Specified), 1 dose, Starting on Fri12/02/17 at 1530, Until Fri12/02/17 at 1513, Routine documented in this encounter Orders Medications Ordered That Might Not Have Count Last Ord ered Date First Ordered Date Been Administered leuprolide (LUPRON DEPOT) injection 7.5 mg 1 12/02 documented in this encounter Care Teams Network Control Supervisor Relationship Specialty Start Date End Date Bobby Das MD PCP - General 07/06/[address] [place] [address],[address] [place] [phone] documented as of this encounter
--- OUTSIDE RECORDS SUMMARY | 2022-07-05 12:43 | XMS_ITS | Encounter Summary ---
:1940 Author Organization [facility] Address [address] [place] [address] Care Team Providers Name Role Phone Bobby Das MD Primary Care Provider Reason for Visit Reason Onset Date Comments Prostate Cancer 06/03/2018 Encounter Details Date Type Department Care Team Description 06/03/2018 Telephone [facility] Cancer Center Aries Gutierrez Cancer Radiation Oncology - III, [address] [address] [address], [place] [address] (Wo rk) Social History Tobacco Use Types Packs/Day Years Used Date Current Every Day Smoker Smokeless Tobacco: Never Used Sex Assigned at Date Recorded Not on file documented as of this encounter Miscellaneous Notes Telephone Encounter - Delores Gutierrez III, MD - 06/03/2018 4002 EDT RADIATION ONCOLOGY I spoke with Mr. Zamora by phone today. He tells me he is unable to make it to [place] for follow-up visits with me as he [...] office if he will be in the [place] area as I would be happyto move my schedule as needed to see him for follow-up. I did strongly encourage him to continue follow-up with Dr. José and asked him to call them to arrange an appointment. He canceled his next scheduled follow-up appointment with me. Sj Gutierrez MD Radiation Oncology [phone] (office) [phone] (pager) This note has been prepared with voice recognition software. Please excuse talent manager errors. documented in this encounter Plan of Treatment Not on filedocumented as of this encounter Visit Diagnoses Not on filedocumented in this encounter Care Teams Upfitter Relationship Specialty Start Date End Date Bobby Das MD PCP - General 07/06/[address] [place] [address],[address] [place] [address] documented as of this encounter
--- OUTSIDE RECORDS SUMMARY | 2022-07-05 12:43 | XMS_ITS | Encounter Summary ---
:1940 Author Organization [facility] Address [address] [place] [address] Care Team Providers Name Role Phone Bobby Das MD Primary Care Provider Encounter Details Date Type Department Care Team Description 04/23/2018 Hospital Encounter [facility]- Devi Unknown, Provider, [facility] [address] [facility] [phone] [place] [address] (Work) [phone] Social History Tobacco Use Types Packs/Day Years [...] filedocumented in this encounter Care Teams Director Global Relationship Specialty Start Date End Date Bobby Das MD PCP - General 07/06/[address] [place] [address] ,[address] [place] [phone] documented as of this encounter
--- OUTSIDE RECORDS SUMMARY | 2022-07-05 12:43 | XMS_ITS | Encounter Summary ---
:1940 Author Organization [facility] Address [address] [place] [address] Care Team Providers Name Role Phone Bobby Das MD Primary Care Provider Reason for Referral Laboratory Services (Routine) - Closed Specialty Diagnoses / Procedures Referred By Contact Refer red To Contact Diagnoses Malignant neoplasm of prostate ([facility]) ([facility]) Aries Gutierrez III, Procedures PSA TOTAL, DIAGNOSTIC MD [address] [place] [phone] Referral ID Status Reason Start Date Expiration Date Visits Requ ested Visits Authorized [id number] Closed 07/11/2019 1 1 Encounter Details Date Type Department Care Team Description 01/08/2019 Documentation Visit [facility] Cancer Center Aries Gutierrez Malignant neoplasm Radiation Oncology Felix EAST MD of prostate - [address] ([facility]) (Primary [address] [facility] Dx) [facility], [address] [place] [address] [address] Social History Tobacco Use Types [...] Diagnosis Malignant neoplasm of prostate ([facility]) (HCC) - Primary Malignant neoplasm of prostate documented in this encounter Care Teams Dog Obedience Instructor Relationship Specialty Start Date End Date Bobby Das MD PCP - General 07/06/[address] [place] [address],[address] [place] [phone] documented as of this encounter
--- OUTSIDE RECORDS SUMMARY | 2022-07-05 12:43 | XMS_ITS | Encounter Summary ---
:1940 Author Organization [facility] Address [address] [place] [address] Care Team Providers Name Role Phone Bobby Das MD Primary Care Provider Reason for Visit Reason Comments Cancer Encounter Details Date Type Department Care Team Description 02/13/2018 Radiation Therapy [facility] Isela Law Ma lignant neoplasm of Visit Radiation Oncology - RN prostat e ([facility]) [facility] [place] (Primary Dx) [address] [place] [address] Social History Tobacco Use Types Packs/Day [...] encounter diagnosis was Malignant neoplasm of prostate ([facility]). Assessment: Assessment Completed By: Isela Law RN [...] prostate documented in this encounter Care Teams Retail Clerk Relationship Specialty Start Date End Date Bobby Das MD PCP - General 07/06/[address] [place] [address] ,[address] [place] [address] documented as of this encounter
--- OUTSIDE RECORDS SUMMARY | 2022-07-05 12:43 | XMS_ITS | Encounter Summary ---
:1940 Author Organization [facility] Address [address] [place] [address] Care Team Providers Name Role Phone Bobby Das MD Primary Care Provider Encounter Details Date Type Department Care Team Description 07/11/2019 Hospital Encounter [facility] Aries Gutierrez Radiation Oncology - III, [facility] 111 [facility] [address] [place] [address] Pavilion, [place] [phone] (Wo rk) Social History Tobacco Use Types [...] Code Departure Means Destination Home or Self Longterm documented in this encounter Plan of Treatment Not on filedocumented as of this encounter Visit Diagnoses Not on filedocumented in this encounter Care Teams Well Logging Captain Relationship Specialty Start Date End Date Bobby Das MD PCP - General 07/06/[address] [place] [address] ,[address] [place] [address] documented as of this encounter
--- OUTSIDE RECORDS SUMMARY | 2022-07-08 09:48 | XMS_ITS | Encounter Summary ---
:1940 Author Organization [facility] [place] [address] Care Team Providers Name Role Phone Bobby Das MD Primary Care Provider Reason for Referral Diagnostic Test (Routine) - Authorized Specialty Diagnoses / Procedures Referred By Contact Refer red To Contact Cardiology Diagnoses HFrEF (heart failure with reduced ejection fraction) Aaln Reid MD [facility] Non-Inv Card Lab Procedures [place]chocardi[place] [address] [place] [address] Fax: Referral ID Status Reason Start Expiration Visits Visits Date Date Requested Authorized [id number] Authorized Specialty 06/13/2022 06/13/2023 1 1 Service Requested Reason for Visit Consultation (Routine) - Closed Specialty Diagnoses / Procedures Referred By Contact Refer red To Contact Cardiology Diagnoses HFrEF (heart failure with reduced ejection fraction) Paroxysmal atrial fibrillation Post-hospital follow-up, s/p PCI with stenting, heart failure Nasrin Parra PA [facility] Cardiology [facility] [place] [address] [place] [address] Referral ID Status Reason Start Date Expiration Date Visits V isits Requested Authorized [id number] Closed Consult, 05/21/2022 05/21/2023 1 1 Test & Treat Encounter Details Date Type Department Care Team Description 06/13/2022 Office Visit Cardiology at [facility] Alan Reid Coronary artery disease invo lving hopi coronary artery of hopi heart without angina pectoris; [facility] MD Kurt HFrEF (heart failure with reduced ejecti on fraction); Drive [facility] [place] [address] CARDIOLOGY [phone] [place], [place] [address] Social History Tobacco Use Types [...] the original note were not included. [facility] [place] [phone] CARDIOLOGY OUTPATIENT PROGRESS NOTE PRIMARY CARE PROVIDER: Bobby Das MD REFERRING PROVIDER: Nasrin Parra PROBLEM LIST: Patient Active Problem List Diagnosis ??? 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 Hypertriglyceridemia ??? Adhesive capsulitis [...] 3 ??? fluticasone propionate (FLONASE) 50 mcg/actuation [place], Suspension 1 spray by Each Nare route [...] healing well. Markedly diminished left radial pulse. 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 Psych: Appropriate affect. Labs: Lab [...] device therapy possiblyincluding AV node ablation and ASSEMBLY PERSON-D. 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 documented in this encounter Plan of Treatment Upcoming Encounters Date Type Specialty Care Team Description 08/08/2022 Office Visit Gastroenterology Negra Collins MD [facility] DR GASTROENTEROLOGY DEPT [place], [place] [address] (Wo rk) 09/05/2022 Appointment Cardiology Trinity Reid MD [facility] CARDIOLOGY [place], [place] [address] (Wo rk) 09/05/2022 Office Visit Cardiology Trinity Reid MD [facility] CARDIOLOGY [place], [place] [address] (Wo rk) Scheduled Orders Name Type Priority Associated Order Schedule Diagnoses Echocardiogram Echocardiography Routine HFrEF (heart Expected: Transthoracic failure with 08/13/2022, reduced ejection Expires: fraction) 02/12/2023 documented as of this encounter Visit Diagnoses Diagnosis 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
--- OUTSIDE RECORDS SUMMARY | 2022-07-08 09:48 | XMS_ITS | Encounter Summary ---
:1940 Author Organization [facility] Address [facility] [place] [address] Care Team Providers Name Role Phone Bobby Das MD Primary Care Provider Encounter Details Date Type Department Care Team Description 06/24/2022 Telephone Gastroenterology at [facility] Alan August MD [facility] [place] [id number] GASTROENTEROLOGY DEPT [phone] [place], [place] [address] (Wo rk) Social History Tobacco [...] data. [facility] [...] and no diverticulosis. This was done at [facility]. HgB 8.6 today. There has not [...] 08/08/2022 Office Visit Gastroenterology Negra Collins MD [facility] GASTROENTEROLOGY DEPT [place], [place] [address] (Wo rk) 09/05/2022 Appointment Cardiology Trinity Reid MD [facility] CARDIOLOGY [place], [place] [address] (Wo rk) 09/05/2022 Office Visit Cardiology Trinity Reid MD [facility] CARDIOLOGY [place], [place] [address] (Wo rk) documented as of this encounter Visit Diagnoses Not on filedocumented in this encounter Care Teams Polymerization Oven Operator Relationship Specialty Start Date End Date Bobby Das MD PCP - General 10/02/[address] [place] [address] [place] [phone] documented as of this encounter
--- OUTSIDE RECORDS SUMMARY | 2022-07-08 09:48 | XMS_ITS | Clinical Summary ---
:1940 Author Organization [facility] [place] [address] Care Team Providers Name Role Phone Bobby [...] 04/12/2021 Active (FLONASE) 50 mcg/actuation Each Nare Linton, Suspension route daily as needed. fluorouraciL (EFUDEX) [...] Problem Noted Date Coronary artery disease involving [place] coronary priscilla ry of [place] heart 06/13/2022 without angina pectoris Overview: 05/20/22 [...] therapy possibly including AV node ablation and LINEMAN-D. Permanent atrial fibrillation 06/13/2022 Last Assessment & [...] consideration of AV no de ablation and LINEMAN-D Limb ischemia 05/15/2022 History of basal cell carcinoma 05/31/2014 Basal cell carcinoma 03/29/2014 Verruca vulgaris 03/29/2014 AK (actinic keratosis) 03/29/2014 GIB (gastrointestinal bleeding) 06/28/2011 Overview: Secondary to 3-4 ASA/day, required admis lynette and blood transfusion MVP (mitral valve prolapse) s/p repair 06/28/2011 Overview: Surgery done at [facility] in 2 001 Hypertriglyceridemia 06/28/2011 Adhesive [...] Hicks MD Coronary priscilla ry disease involving [place] coronary artery of [place] heart without angina pectoris 06/19/2022 Telephone Cardiology Kourtney Jimenez RN 06/17/2022 Orders Only Dermatology Loretta Cohen Basal cell c carlos Paez MD (BCC) of right forehead 06/13/2022 Office Visit Cardiology Jeanette, Coronary artery disease involving [place] coronary artery of [place] heart without angina pectoris; Alan Hicks MD [...] Gastroenterology Elmer Johnson MD Drost, Alexander J, UNIVERSITY ADMINISTRATIVE ASSISTANT 05/31/2022 Surgery Gastroenterology Giovani Ponce UPPE R GI M, MD ENDOSCOPY 05/31/2022 - Hospital Encounter Dominique Hinds GIB (g astrointestinal 06/02/2022 MD bleeding) (Primary Dx) Mahendra Victor MD Friedman, Harley P, MD Ratanamaneechat, Suphagaphan, MD 05/31/2022 Office Visit Vascular Surgery DavinaStephanie bellamyy Dizzy; B, CHANGE OVER Atrial fibrilla tion, unspecified type; SOB (shortness of breath) 05/28/2022 Telephone Vascular Surgery Dominique Bolivar RN 05/24/2022 Telephone Cardiology Kourtney Jimenez RN 05/21/2022 Hospital Encounter Cardiology Paroxysma l atrial fibrillation 05/20/2022 Surgery Cardiology Abundio Servin MD CATHETERIZATION 05/15/2022 Anesthesia Event Surgery Cari Hernandez MD Patel, Shreena K, UNIVERSITY ADMINISTRATIVE ASSISTANT 05/15/2022 Surgery Surgery Fito Summers EMBOLECTOMY O [...] Office Visit Gastroenterology Negra Collins MD [facility] GA[facility]PT [place], [place] [address] (Wo rk) 09/05/2022 Appointment Cardiology Trinity Reid MD [facility] CARDIOLOG[facility] [place], [place] [address] (Wo rk) 09/05/2022 Office Visit Cardiology Trinity Reid MD [facility] [place], [place] [address] (Wo rk) Health Maintenance Due [...] Value Ref Test Analysis Performed At [facility] Range Method Time Signature UPPER GI [facility] PROVATION ENDOSCOPY Endoscopy Procedure Date: 06/25/2022 10:33 AM ? Patient Name: Koko Bah ? Date of : 1940 ? Age: 81 ? Order #: [id number] ? Instrument Name: [id number]- [id number] ? Procedure: ? Upper GI endoscopy Indications: [...] Component Value Ref Test Analysis Performed At [facility] Method Time Signature COLONOSCOPY [facility] PROVATION Endoscopy Procedure Date: 06/25/2022 10:33 AM ? Patient Name: Koko Bah ? Date of : 1940 ? Age: 81 ? Order #: [id number] ? Instrument Name: [id number]- [id number] ? Procedure: ? Colonoscopy Indications: ? Gastrointestinal [...] Procedure Code(s): ? --- Professional --- ? 04687, Colonoscopy, flexib le; with ? control of [...] of sigmoid ? colon CPT copyright 2020 [employer] [place] [employer]. All rights reserved. The codes documented in this report are preliminary and upon product marketing programs manager review may be revised to meet current [...] Value Ref Test Analysis Performed At [facility] Range Method Time Signature VB Text Department: Vascular Surgery Lab VASCUBASE Report Patient: [id number] (KOKO BAH) CPT: 10444 Referring Physician: FITO SUMMERS ?? Phone: Indications: s/p L 2 YEAR [employer] endart. Diabetes mellitus: no Findings: Right ?Pressure [...] Summers MD VASCULAR ORDERABLES Performing Organization Address City/[facility]/ZIP Code Phon e Number VASCUBASE Specimen to Pathology (06/10/2022 1:20 PM EDT) Specimen Anatomical Collection Method Collection Time Receive d Time (Source) Location / / Volume Laterality AP Specimen 06/10/2022 1:20 PM 1:20 EDT PM EDT Narrative [facility] - 06/10/2022 1:20 PM EDT Specimen requisition ordered. ??Separate Pathology report to follow Loretta Cohen MD PATHOLOGY/CYTOLOGY ORDERABLE S Performing Organization Address [facility] [place] [address] [facility] [address] Surgical Pathology Report (06/10/2022 11:43 AM EDT) Component Value Ref Test Analysis Performed At [facility] Range Method Time Signature Surgical [id number] ? Location: [facility] Report The signing pathologist has (i) examined the relevant preparation(s) for the [facility] specimen(s) and (ii) rendered or confirmed the diagnosis(es) . HOSPITAL LABORATORY . ?Surgic al Pathology DIAGNOSIS Right lateral eyebrow, skin shave biopsy: - ??Basal cell carcinoma, no dular pattern, transected at the peripheral and deep specimen edges Electronically signed by: ?Delroy CARCAMO, PhD, Ian Verified: ??06/12/2022 14:33 ??Dermatopathologist Performed at: ??-[facility] Dept. of Pathology, [place], [place] SPECIMEN(S) SUBMITTED A - right lateral [...] Organization Address City/State/ZIP Code Phon e Number [place] [id number] (ABNORMAL) Hemogram (06/02/2022 8:20 AM EDT)Only the most recent of14 results within the time period is included. Analysis Performed At Patho logist Time Signature WBC 7.2 4.0 - 9.5 [facility] x10(3)/[facility] LABORATORY RBC 2.74 (L) 4.58 - [facility] 5.54 [facility] x10(6)/[facility] LABORATORY Hemoglobin 8.7 (L) 13.7 - [place] AF[place] 16.5 g/dL [facility] LABORATORY Hematocrit 25.7 (L) 40.5 - [facility] 48.5 % [facility] LABORATORY MCV 93.8 (H) 82.9 - [place] 93.1 [facility] LABORATORY MCH 31.8 27.5 - [employer] 32.[address] [facility] LABORATORY MCHC 33.9 32.0 - [place] 35.7 g/dL [facility] LABORATORY Platelets 260 145 - 357 [place] [employer] x10(3)/[facility] LABORATORY RDWSD 51.0 (H) 36.0 - [place] 45.0 [facility] LABORATORY RDWCV 14.9 (H) 11.4 - [place] 13.8 % [facility] LABORATORY MPV 10.0 7.6 - 12.9 [facility] nRBC % Auto 0.0 % [facility] nRBC Abs Auto 0.000 0.000 - [facility] 0.000 [facility] x10(3)[facility] LABORATORY Specimen Anatomical Collection Method Collection Time Receive d Time (Source) Location / / Volume Laterality Blood 06/02/2022 8:20 AM 8:25 EDT AM EDT Resulting Agency Comment Spec In Lab Kurt Ames MD HEMATOLOGY ORDERABLES Performing Organization Address City/State/[place] [address] (ABNORMAL) Differential, Automated (06/02/2022 8:20 AM EDT)Only the most recent of14 resultswithin the time period is included. P athologist Signature Neutrophils % 61.3 % [facility] Neutr Abs (ANC) 4.44 1.70 - [facility] 6.10 [facility] x10(3)[facility] LABORATORY Lymphocytes % 25.2 % [facility] Lymphocytes Abs 1.8 0.9 - 3.2 [facility] x10(3)[facility] LABORATORY Monocytes % 10.0 % [facility] Monocyte Abs 0.7 0.3 - 0.9 [facility] x10(3)[facility] LABORATORY Eosinophils % 2.1 % [facility] Eosinophils Abs 0.2 0.0 - 0.4 [facility] x10(3)[facility] LABORATORY Basophils % 0.7 % [facility] Basophils Abs 0.0 0.0 - 0.1 [facility] x10(3)[facility] LABORATORY Immature Gran % 0.70 % [facility] Comment: Immature granulocytes(IG's)percentage an d absolute count will include metamyelocytes, myelocytes, and promyelo cytes. Blood smears from CBCs yielding IG's will be scanned manually for concor dance. If this scan disagrees with the automated IG or if promyelocytes are not ed, a manual differential will be performed. Rain Gran Abs 0.05 (H) 0.00 - 0.04 x10(3)/mcL [facility] Specimen Anatomical Collection Method Collection Time Receive d Time (Source) Location / / Volume Laterality Blood 06/02/2022 8:20 AM 2 8:25 EDT AM EDT Resulting Agency Comment Spec In Lab Kurt Ames MD HEMATOLOGY ORDERABLES Performing Organization Address City/State/ZIP Code Phon e Number [address] Heparin (unfractionated) Level (06/02/2022 6:30 AM EDT)Only the most recent of11 resultswithin the time period is included. athologist Signature Heparin UFH 0.39 IU/mL [facility] LABORATORY Comment: Heparin (anti-Xa) levels should be [...] Organization Address City/State/ZIP Code Phon e Number [address] Magnesium (06/02/2022 12:30 AM EDT)Only the most recent of5 resultswithin the time period is included. athologist Signature Magnesium 0.83 0.69 - 1.07 [facility] mmol/L [facility] LABORATORY Specimen Anatomical Collection Method Collection Time Receive d Time (Source) Location / / Volume Laterality Blood 06/02/2022 12:30 06/02/2022 AM EDT 12:40 AM EDT Resulting Agency Comment Spec In Lab Mahendra Victor MD CHEMISTRY ORDERABLES Performing Organization Address City/State/[place] [address] (ABNORMAL) Basic Metabolic Panel (non-fasting) (06/02/2022 12:30 AM EDT)Only the most recent of6 resultswithin the time period is included. athologist Signature Glucose Lvl 151 65 - 199 [facility] mg/dL [facility] LABORATORY Comment: Diabetes: >=200 mg/dL plus symp toms BUN 12 10 - 20 mg/dL [facility] LABORATORY Creatinine 0.71 (L) 0.80 - 1.50 mg/dL [facility] LABOR[facility]ORY Sodium 142 135 - 145 mmol/L [facility] LABORATORY Potassium 3.8 3.5 - 5.0 mmol/L [facility] LABORATORY Comment: Please note: ??Patients [...] Anion Gap 10 5 - 15 mmol/L [facility] LABORATORY Calcium 8.1 (L) 8.5 - 10.5 mg/dL [facility] LABORATORY Estimated GFR 93 >=60 mL/min/1.73 m?? [facility] LABORATORY [...] Organization Address City/State/[place] [address] SCAN DOC: TELEMETRY STRIPS (06/01/2022 8:37 PM EDT)Only the most recent of8 resultswithin the time period is included. Narrative This result has an attachment that is no t available. Unknown MEDIA MGR SCAN EXT ORDR/RSLT (ABNORMAL) Urinalysis with reflex Culture (06/01/2022 4:00 AM EDT)Only the most recent of2 resultswithin the time period is included. [facility] gist Method Time Signature Glucose UA 500 Negative [facility] (Critical) mg/dL [facility] LABORATORY Comment: Urinalysis result NOT critical without a combination of Glucose greater than or equal to 500 mg/dL AND Ketones greate r than or equal to 80 mg/dL Protein UA Negative Negative mg/dL [facility] Bilirubin UA Negative Negative mg/dL [place] [...] HOSPITAL LABORATORY Blood UA Negative Negative mg/dL [facility] Ketones UA Negative Negative mg/dL [facility] Nitrite UA Negative Negative [facility] LABORATORY Leukocytes UA Negative Negative mcL [facility] LABORATORY Appearance UA Clear Clear [facility] LABORATORY Spec [place] UA >=1.030 (A) 1.005 - 1.030 [facility] Color UA Yellow Yellow [facility] LABORATORY Culture Reflexed No [facility] LABORATORY Specimen Anatomical Collection Method Collection Time Receive d Time (Source) Location / / Volume Laterality Clean Catch 06/01/2022 4:00 AM 4:26 Urine EDT AM EDT Resulting Agency Comment Spec In Lab Mahendra Victor MD URINE ORDERABLES Performing Organization Address City/State/[place] [address] Transfuse RBC (05/31/2022 7:36 PM EDT) Dominique Hinds MD NURSING TREATMENT ORDERABLES - BLOOD ADMIN UPPER GI ENDOSCOPY (05/31/2022 3:37 PM EDT) Component Value Ref Test Analysis Performed At [facility] Range Method Time Signature UPPER GI [facility] PROVATION ENDOSCOPY Endoscopy Procedure Date: 05/31/2022 3:37 PM ? Patient Name: Koko Bah ? Date of : 1940 ? Age: 81 ? Order #: [id number] ? Instrument Name: [id number] ? Procedure: ? Upper GI endoscopy Indications: [...] Procedure Code(s): ? --- Professional --- ? 95292, Esophagogastroduode noscopy, ? flexible, transoral; with control [...] and duodenum CPT copyright 2020 [employer] [place] [employer]. All rights reserved. The codes documented in this report are preliminary and upon product marketing programs manager review may be revised to meet current [...] ? Electronically signed by: Jl walter MD, [facility] ([phone]), at 05/31/2022 2:39 PM Narrative 05/31/2022 2:39 PM EDT EXAMINATION: CT ABDOMEN AND PELVIS WWO CONTRAST (GI BLEED) CLINICAL HISTORY: Significant Hb drop. U nknown source. has had a [facility] with stent placed and revascularization of left low er extremity within the past two weeks, recently on anticoagulation Unknown source of bleeding TECHNIQUE: Helical CT of the abdomen and pelvis was performed before and after the intravenous administration contrast utilizing GI bleed protocol. Administered 125.0 ml of OMNIPAQUE 350.0 0 mg/ml. Oral contrast was not administered. COMPARISON: 05/15/2022 from [facility] FINDINGS: GI Tract: Pre-contrast: No bowel [...] enlarged lymph nodes. Vasculature: Patent common iliac, neonatal intensive care nurse al iliac, and common femoral arteries bilaterally. [...] the original. EXAMINATION: CT ABDOMEN AND PELVIS [facility] (GI BLEED) CLINICAL HISTORY: Significant Hb drop. [...] contrast was not administered. COMPARISON: 05/15/2022 from [facility] FINDINGS: GI Tract: Pre-contrast: No bowel [...] enlarged lymph nodes. Vasculature: Patent common iliac, neonatal intensive care nurse al iliac, and common femoral arteries bilaterally. [...] first. Electronically signed by: Jl walter MD, [facility] ([phone]), at 05/31/2022 2:39 PM Dominique Hinds MD IMG CT ORDERABLES Type and Screen Validity (05/31/2022 1:43 PM EDT)Only the most recent of2 resultswithin the time period is included. [facility] Method Time Signature T&S only valid [facility] LABORATORY Comment: This Type and Screen result is only valid at the [facility] Specimen Anatomical Collection Method Collection Time Receive d Time (Source) Location / / Volume Laterality Blood 05/31/2022 1:43 PM 2 1:57 EDT PM EDT Resulting Agency Comment Spec In Lab Dominique Hinds MD BLOOD BANK ORDERABLES Performing Organization Address City/State/[place] [address] ABORH Recheck Status (05/31/2022 1:43 PM EDT)Only the most recent of2 results within the time period is included. [facility] Method Time Signature ABORH Type Completed [facility] LABORATORY Specimen Anatomical Collection Method Collection Time Receive d Time (Source) Location / / Volume Laterality Blood 05/31/2022 1:43 PM 2 1:57 EDT PM EDT Resulting Agency Comment Spec In Lab Dominique Hinds MD BLOOD BANK ORDERABLES Performing Organization Address City/[facility]/[place] [address] ABO/Rh Typing (05/31/2022 1:43 [...] BANK ORDERABLES Performing Organization Address [facility]/[place] [address] Antibody screen (05/31/2022 1:43 PM EDT)Only the most recent of2 resultswithin the time period is included. Patholo gist Method Time Signature Ab Screen Negative [facility] LABORATORY Expires at 06/03/2022 [facility] [id number] on: [facility] LABORATORY Specimen Anatomical Collection Method Collection Time Receive d Time (Source) Location / / Volume Laterality Blood 05/31/2022 1:43 PM 2 1:57 EDT PM EDT Resulting Agency Comment Spec In Lab Dominique Hinds MD BLOOD BANK ORDERABLES Performing Organization Address City/[facility]/ZIP Code Phon e Number [address] Prepare RBC (05/31/2022 1:35 PM EDT)Only the most recent of2 resultswithin the time period is included. P athologist Signature Dispensed? Yes [facility] Specimen Anatomical Collection Method Collection Time Receive d Time (Source) Location / / Volume Laterality Blood 05/31/2022 1:35 PM 2 1:30 EDT PM EDT Dominique Hinds MD BLOOD BANK ORDERABLES Performing Organization Address City/State/[place] [address] (ABNORMAL) BLOOD GAS 2 VENOUS (05/31/2022 11:24 AM EDT) P athologist Signature pH Marco Antonio 7.38 7.32 - [facility] [address] [facility] LABORATORY pCO2 Marco Antonio 40 (L) 41 - 51 [facility] LABORATORY pO2 Marco Antonio 18 (L) 25 - 40 [facility] LABORATORY HCO3 Marco [place] 23.3 mmol/L [facility] BE Marco Antonio -1.8 mmol/L [facility] Hgb Blood Gas 7.0 (L) 13.7 - [facility] 16.5 g/dL [facility] LABORATORY O2HB Marco Antonio 24.3 % [facility] COHB Marco Antonio 1.4 % [facility] Comment: Nonsmokers: 0.5-1.5% COHB Smokers: Variable, but usually less than 10% Toxic: 20-30% COHB Lethal: Greater than 60% COHB METHB Marco Antonio 1.7 (H) <=1.5 % [facility] LABORATORY Na Whole Blood 137 135 - 145 mmol/L [facility] K Whole Blood 3.9 3.5 - 5.0 mmol/L [facility] LABORATORY Comment: Please note: Patients with WBC >100,000 may have falsely elevated Potassium levels. Contact the Clinical Chemistry L aboratory if there are any questions. ICa Whole Blood 1.19 1.15 - 1.33 mmol/L [facility] Comment: Note: ??Total bilirubin higher than 20 m g/dL may lead to falsely low ionized calcium. CL Whole Blood 107 98 - 107 mmol/L [facility]ORY Gluc Whole Bld 204 (H) 65 - 199 mg/dL [facility] LABOR[facility]ORY Comment: Diabetes: >=200 mg/dL plus symp toms Lactate WB 1.4 0.5 - 2.2 mmol/L [facility] LABORATORY BGas Source Venous [facility] LABORATORY Specimen Anatomical Collection Method Collection Time Receive d Time (Source) Location / / Volume Laterality Blood 05/31/2022 11:24 05/31/2022 AM EDT 11:24 AM EDT Dominique Hinds MD CHEMISTRY ORDERABLES Performing Organization Address City/[facility]/ZIP Code Phon e Number [address] TSH Delta (05/31/2022 11:20 AM EDT) P athologist Signature TSH 1.67 0.27 - 4.20 [facility] mcIU/mL [facility] LABORATORY Comment: Reference Interval (mcIU/mL): Females: ??First Trimester: 0.23-3.88 ??Second Trimester: 0.22-3.90 ??Third Trimester: 0.44-4.66 Specimen Anatomical Collection Method Collection Time Receive d Time (Source) Location / / Volume Laterality Blood 05/31/2022 11:20 05/31/2022 AM EDT 11:28 AM EDT Resulting Agency Comment Spec In Lab Dominique Hinds MD CHEMISTRY ORDERABLES Performing Organization Address City/[facility]/ZIP Code Phon e Number [address] XR Chest PA & [...] ? Electronically signed by: Alan strong MD, [facility] ([phone]), at 05/31/2022 11:33 AM Narrative 05/31/2022 11:33 [...] care nurse that requested your imaging first. Dominique Hinds MD IMG DX ORDERABLES Blue Tube HOLD (05/31/2022 10:50 AM EDT) athologist Signature Blue Hold Sample in [facility] lab. [facility] LABORATORY Specimen Anatomical Collection Method Collection Time Receive d Time (Source) Location / / Volume Laterality Blood Venous Draw / 05/31/2022 10:50 05/31/2022 Unknown AM EDT 11:05 AM EDT Brittany Ramirez MD HEMATOLOGY ORDERABLES Performing Organization Address City/State/[place] [address] Troponin (05/31/2022 10:50 AM EDT) athologist Signature Troponin-T <0.01 0.00 - 0.00 [facility] ng/mL [facility] LABORATORY Comment: The 99th percentile [...] additional sample may be indicated. Reference: Third [place] Definition of Myocardial Infarction. Journal of the [place] [employer] 2012;60:1581-98 Specimen Anatomical Collection Method Collection Time Receive d Time (Source) Location / / Volume Laterality Blood 05/31/2022 10:50 05/31/2022 AM EDT 11:03 AM EDT Resulting Agency Comment Spec In Lab Dominique Hinds MD CHEMISTRY ORDERABLES Performing Organization Address City/State/ZIP Code Phon e Number [address] Phosphorus (05/31/2022 10:50 AM EDT)Only the most recent of2 resultswithin the time period is included. P athologist Signature Phosphorus 3.2 2.5 - 4.5 [place] mg/dL [facility] LABORATORY Specimen Anatomical Collection Method Collection Time Receive d Time (Source) Location / / Volume Laterality Blood 05/31/2022 10:50 05/31/2022 AM EDT 11:03 AM EDT Resulting Agency Comment Spec In Lab Dominique Hinds MD CHEMISTRY ORDERABLES Performing Organization Address City/[facility]/ZIP Code Phon e Number [address] (ABNORMAL) pro-Brain Natriuretic Peptide (05/31/2022 10:50 AM EDT) P athologist Signature ProBNP 1,077 (H) <=449 [place] FAY[place] pg/mL [facility] LABORATORY Specimen Anatomical Collection Method Collection Time Receive d Time (Source) Location / / Volume Laterality Blood 05/31/2022 10:50 05/31/2022 AM EDT 11:03 AM EDT Resulting Agency Comment Spec In Lab Dominique Hinds MD CHEMISTRY ORDERABLES Performing Organization Address City/[facility]/ZIP Code Phon e Number [address] Lipase (05/31/2022 10:50 AM EDT) P athologist Signature Lipase 41 0 - 60 [place] unit/L [facility] LABORATORY Specimen Anatomical Collection Method Collection Time Receive d Time (Source) Location / / Volume Laterality Blood Venous Draw / 05/31/2022 10:50 05/31/2022 Unknown AM EDT 11:11 AM EDT Resulting Agency Comment Spec In Lab Zain Champion MD CHEMISTRY ORDERABLES Performing Organization Address City/[facility]/[place] [address] (ABNORMAL) Hepatic Function Panel (05/31/2022 10:50 AM EDT) Analysis Performed At Patho logist Time Signature Total Protein 6.4 6.1 - 8.0 [place] g/dL [facility] LABORATORY Albumin 4.1 3.2 - 5.2 ILDA FAYE g/dL [facility] LABORATORY AST 24 0 - 39 [facility] unit/L [facility] LABORATORY ALT 44 0 - 55 [facility] unit/L [facility] LABORATORY Alk Phos 63 40 - 130 [facility]L [facility] LABORATORY Total <0.2 (L) 0.2 - 1.3 ILDA FAYE Bilirubin mg/dL [facility] LABORATORY Bili, Direct 0.1 0.0 - 0.3 [facility] FAYE mg/dL [facility] LABORATORY Specimen Anatomical Collection Method Collection Time Receive d Time (Source) Location / / Volume Laterality Blood Venous Draw / 05/31/2022 10:50 05/31/2022 Unknown AM EDT 11:11 AM EDT Resulting Agency Comment Spec In Lab Zain Champion MD CHEMISTRY ORDERABLES Performing Organization Address City/[facility]/[place] [address] EKG 12 Lead (05/31/2022 10:11 AM EDT)Only the most recent of3 resultswithin the time period is included. Component Value Ref Range Test Analysis Performed Pathologis t Method Time At Signature Ventricular rate 106 BPM MUSE SYSTEM QRS Duration 122 ms MUSE SYSTEM Q-T Interval 368 ms MUSE SYSTEM QTC Calculated 488 ms MUSE SYSTEM (Bezet) Calculated R Dugway -43 degrees MUSE SYSTEM Calculated T Dugway 109 degrees MUSE SYSTEM INTERPRETATION Atrial fibrillation [...] erpretation Confirmed by fellow MD Mike, [place] ([id number]) on 022 8:36:21 PM Confirmed by MD [...] SYSTEM - 05/20/2022 7:09 PM ED T ?[facility] ? Cardiac Cathete rization/Intervention Report ? Patient Name: Koko Bah. ? Procedure Date: 05/20/2022 ? A #: [id number] ? Primary Physician: Malathi, Abundio S ? Case #: [id number] ? File Name: [id number] ? Catheterization Order Number: [id number] ? [facility] ? Final Report [place], [place] ? Patient Name: ? Koko Sullivan. Klraissa uson ? ID#: ?[id number] ? : ?1940 ? Procedure Date: ? [...] procedure was Urgent. The indication for ?the biological lab technician visit is cardiomyo nita. Chest pain [...] ?3.5 guiding catheter and a 3.5 Fr [facility] [address] ??20 Mhz. ??Imaging ?was successful. ??Image [...] A premounted 2. 75 x 30 mm [place] Morgan (AMPARO) was deployed ? with a maximum [...] 123 65 - 199 ILDA FAYE mg/dL [facility] LABORATORY Comment: Supplemental ranges: <140 mg/dL before meals <180 mg/dL all other times of the day Specimen Anatomical Collection Method Collection Time Receive d Time (Source) Location / / Volume Laterality Blood 05/20/2022 5:42 PM 2 5:42 EDT PM EDT Fito Summers MD POINT OF CARE TEST ORDERABLE S Performing Organization Address City/State/[place] [address] (ABNORMAL) BMP w/fasting Glucose (05/20/2022 10:50 AM EDT) P athologist Signature Glucose 152 (H) 65 - 99 ILDA FAYE Fasting mg/dL [facility] LABORATORY Comment: ?Fasting* Glucose Interpretive [...] Mellitus, Position Statement from the [place] [employer]. ??Diabete s Care, Volume 33, Supplement 1, Nov 2009 BUN 11 10 - 20 mg/dL [facility] LABORATORY Creatinine 0.63 (L) 0.80 - 1.50 mg/dL [facility] LABORATORY Sodium 137 135 - 145 mmol/L [facility] LABORATORY Potassium 3.6 3.5 - 5.0 mmol/L [facility] LABORATORY Comment: Please note: ??Patients [...] Anion Gap 10 5 - 15 mmol/L [facility] LABORATORY Calcium 8.7 8.5 - 10.5 mg/dL [facility] LABORATORY Estimated GFR 97 >=60 [...] Organization Address City/State/[place] [address] TSH (05/18/2022 8:00 PM EDT) P athologist Signature TSH 2.27 0.27 - 4.20 [facility] mcIU/mL [facility] LABORATORY Comment: Reference Interval (mcIU/mL): Females: ??First Trimester: 0.23-3.88 ??Second Trimester: 0.22-3.90 ??Third Trimester: 0.44-4.66 Specimen Anatomical Collection Method Collection Time Receive d Time (Source) Location / / Volume Laterality Blood 05/18/2022 8:00 PM 8:06 EDT PM EDT Resulting Agency Comment Spec In Lab Fito Summers MD CHEMISTRY ORDERABLES Performing Organization Address City/[facility]/ZIP Code Phon e Number [address] (ABNORMAL) Urinalysis Microscopic Exam [...] Patiño MD URINE ORDERABLES Performing Organization Address City/[facility]/ZIP Code Phon e Number [address] XR Chest One View [...] Electronically signed by: Tiffanie George MD , [facility] ([phone]), at 05/16/2022 9:27 PM Narrative 05/16/2022 9:27 [...] Electronically signed by: Tiffanie George MD , [facility] ([phone]), at 05/16/2022 9:27 PM Fito Summers MD IMG DX ORDERABLES ECHOCARDIOGRAM COMPLETE W CONTRAST (05/16/2022 12:49 PM EDT) P athologist Signature EF 28 [facility] Specimen (Source) Anatomical Collection Method Collection Time Re ceived Time Location / / Volume Laterality 05/16/2022 11:22 AM EDT Narrative [facility] - 05/16/2022 1:54 PM EDT ?[facility] ?[address] ? [place] [address] ?Voice: ?Fax: ? Echocardiogram Report Name: KOKO BAH ?Study Date: 05/16/2022 11:22 AM ? Patient Location: 3WST 0303 B : 1940 ? Height: 67.5 in ? Account: [id number] Age: 81 yrs ? Weight: 176 lb Gender: Male ?BSA: 1.9 m2 Ordering Physician: FITO SUMMERS Referring Physician: MALI FLORIAN Performed By: Jolene Bernard RDCS Exam Location: [facility]. Interpretation Summary Left ventricle is mildly [...] and LV systolic dysfunction are new. Procedure Complete-12767. Image enhancement Optiso n was used for [...] note might be different from the original. [facility] [address] [place] [address] Voice: Fax: Echocardiogram Report Name: KOKO BAH Study Date: 05/2022 11:22 AM Patient Location: [address] [place] [address] : 1940 Height: 67.5 in Account: [id number] Age: 81 yrs Weight: 176 lb Gender: Male BSA: 1.9 m2 Ordering Physician: FITO SUMMERS Referring Physician: MALI FLORIAN Performed By: Jolene Bernard RDCS Exam Location: [facility]. Interpretation Summary Left ventricle is mildly [...] and LV systolic dysfunction are new. Procedure Complete-15859. Image enhancement Optiso n was used for [...] Signature pH Art 7.33 (L) 7.35 - [facility] 7.[address] [facility] LABORATORY pCO2 Art 41 35 - 45 [facility] LABORATORY pO2 Art 131 (H) 85 - 104 [facility] LABORATORY HCO3 Art 21.1 20.0 - [facility] 26.0 [facility] mmol/L [facility] LABORATORY BE Art -4.8 (L) -3.0 - 3.0 [facility] mmol/L [facility] LABORATORY Hgb Blood Gas 13.4 (L) 13.7 - [facility] 16.5 g/dL [facility] LABORATORY O2HB Art 96.9 94.0 - [facility] 97.0 % [facility] LABORATORY COHB Art 1.4 % [facility] [...] Blood 113 (H) 98 - 107 mmol/L [facility] LABORATORY Gluc Whole Bld 136 65 - 199 mg/dL [facility] LABORATORY Comment: Diabetes: >=200 mg/dL plus symp toms. Lactate WB 2.0 0.5 - 2.2 mmol/L [facility] LABORATORY Specimen Anatomical Collection Method Collection Time Receive d Time (Source) Location / / Volume Laterality Blood 05/15/2022 3:33 PM 3:[address] Jamel Torre MD CHEMISTRY ORDERABLES Performing Organization Address City/State/[place] [address] (ABNORMAL) APTT (05/15/2022 12:30 [...] Organization Address City/State/ZIP Code Phon e Number [place] [phone] (ABNORMAL) Prothrombin Time (05/15/2022 12:30 PM EDT) athologist Signature PT 12.9 (H) 9.4 - 12.5 [facility] LABORATORY INR 1.1 [facility] [...] Organization Address City/State/ZIP Code Phon e Number [place] [phone]OS[address] LAB[address] Drive Gold Tube HOLD (05/15/2022 12:20 PM EDT) athologist Signature Gold Hold Sample in [facility] LABORATORY Specimen Anatomical Collection Method Collection Time Receive d Time (Source) Location / / Volume Laterality Blood No Charge / 05/15/2022 12:20 05/15/2022 Unknown PM EDT 12:20 PM EDT Lc TRIPP CHEMISTRY ORDERABLES Performing Organization Address City/State/[place] [address] [facility] LAB[address] Drive CK (05/15/2022 12:00 PM EDT) P athologist Signature CK, Total 87 0 - 200 [facility] unit/L [facility] LABORATORY Specimen Anatomical Collection Method Collection Time Receive d Time (Source) Location / / Volume Laterality Blood Venous Draw / 05/15/2022 12:00 05/15/2022 Unknown PM EDT 12:19 PM EDT Resulting Agency Comment Spec In Lab Fito Summers MD CHEMISTRY ORDERABLES Performing Organization Address City/State/[place] [address] [facility] LABORATORY Drive Film Library- Storage Only CT Abdomen (05/15/2022 9:32 AM EDT) Specimen (Source) Anatomical Location Collection Method / Collectio n Time Received Time / Laterality Volume Narrative [facility] - 05/15/2022 9:32 AM EDT This exam is auto-finalizing. It's purpo se is for storage only. Matt Branham MD [facility] [place] [place] FILM LIBRARY ORDERABLES Performing Organization Address [facility]/ZIP [facility] Phon e Number [place], [place] Film Library- Storage Only DX Chest (05/15/2022 9:31 AM EDT) Specimen (Source) Anatomical Location Collection Method / Collectio n Time Received Time / Laterality Volume Narrative RAD - 05/15/2022 9:31 AM EDT This exam is auto-finalizing. It's purpo se is for storage only. Matt Branham MD [facility] [place] [place] FILM LIBRARY ORDERABLES Performing Organization Address City/[facility]/ZIP [facility] Phon e Number [place], [place] from Last 3 Months Insurance Payer Benefit Plan / Subscriber ID Effective Phone Address T ype Group Dates MEDICARE MEDICARE PART A [id number] 2007-Pres [phone] & [id number] ent 27 [facility] [place] B[place] [address] [facility] [id number] 2007-Pres [phone] [address] [facility] ent 54 [facility] [place] [address] Advance Directives Latest Code Status on File [...] capacity to make decision: Yes Care Teams Metal Window Frame Maker Relationship Specialty Start Date End Date Bobby Das MD PCP - General 10/02/[address] [place] [address] [place] [id number]
--- OUTSIDE RECORDS SUMMARY | 2022-07-08 09:48 | XMS_ITS | Encounter Summary ---
:1940 Author Organization [facility] [address] Care Team Providers Name Role Phone Bobby Das MD Primary Care Provider Reason for Visit Reason Comments Skin Lesion Consultation (Routine) - Closed Specialty Diagnoses / Procedures Referred By Contact Refer red To Contact Dermatology Diagnoses Lesion on right eye = hx of skin cancer Bobby Das MD [facility] Dermatology Procedures Lesion on right eye = hx of skin cancer [address] [facility] [address] [place] [address] [place] [address] Fax: Referral ID Status Reason Start Date Expiration Date Visits Requ ested Visits Authorized [id number] Closed 04/22/2022 04/22/2023 1 1 Encounter Details Date Type Department Care Team Description 06/10/2022 Office Visit Dermatology at [facility], Neoplasm of Road unspecified behavior [address] [facility] bone[place] [address] [address] [address] and skin [phone] DERMATOLOGY [place] [address] Social History Tobacco Use Types Packs/Day Years [...] nevi N SCC N BCC 2015: right uatsdin, BCC s/p mohs 09/2018: right eyebrow, BCC [...] to the clinic at the request of Bobyb Das for the following: - Lesion on [...] N/A RTC: Pending pathology []Note routed to litigation secretary []Recall placed in scheduling system []Appointment [...] by: Noel Burgos MD Dermatology [facility] Loretta Cohen MD - 06/10/2022 11:00 AM EDT DERMATOLOGY TELEPHONE NOTE Koko Zamora 06/17/2022 [id number] Reason for call: Discuss biopsy results I [...] 08/08/2022 Office Visit Gastroenterology Negra Collins MD [facility] GASTROENTEROLOGY DEPT [place], [place] [address] (Wo bob) 09/05/2022 Appointment Cardiology Trinity Reid MD [facility] CARDIOLOGY [place], [place] [address] (Rebekah rojas) 09/05/2022 Office Visit Cardiology Trinity Reid MD [facility] ER DR CARDIOLOGY [place] [address] (Wo rk) documented as of this encounter [...] PM 2 1:20 EDT PM EDT Narrative [facility] LABORAT ORY - 06/10/2022 1:20 PM EDT Specimen requisition ordered. ??Separate Pathology report to follow Loretta Cohen MD PATHOLOGY/CYTOLOGY ORDERABLE S Performing Organization Address City/State/[place] [address] Surgical Pathology Report (06/10/2022 11:43 AM EDT) Component Value Ref Test Analysis [facility] Range Method Time Signature Surgical [id number] ? Location: [facility] Report The signing pathologist has (i) examined the relevant preparation(s) for the [facility] specimen(s) and (ii) rendered or confirmed the diagnosis(es) . HOSPITAL LABORATORY . ?Surgic al Pathology DIAGNOSIS Right lateral eyebrow, skin shave biopsy: - ??Basal cell carcinoma, no dular pattern, transected at the peripheral and deep specimen edges Electronically signed by: ?Delroy CARCAMO, PhD, Ian Verified: ??06/12/2022 14:33 ??Dermatopathologist Performed at: ??-[facility] Dept. of Pathology, [place], [place] SPECIMEN(S) SUBMITTED A - right lateral [...] Organization Address City/State/[place] [address] [facility] [address] documented in this encounter Visit Diagnoses Diagnosis Neoplasm of unspecified behavior of bone , soft tissue, and skin documented in this encounter Care Teams Cork Insulator Relationship Specialty Start Date End Date Bobby Das MD PCP - General 10/02/[address] [place] [address] [place] [address] documented as of this encounter
--- OUTSIDE RECORDS SUMMARY | 2022-07-08 09:48 | XMS_ITS | Encounter Summary ---
:1940 Author Organization [facility] [place] [address] Care Team Providers Name Role Phone Bobby Das MD Primary Care Provider Encounter Details Date Type Department Care Team Description 06/25/2022 Hospital Encounter Gastro[facility]ology at [facility] Giovani Ponce, [facility] [place] [address] [address] [facility] [phone] [place] [address] Social History Tobacco Use Types Packs/Day [...] the day after the procedure, use an tqgc-oti-sowfzqs spray to numb your throat. Sucking on [...] occurs, please contact your Doctor. Please call [phone] before 8pm Mon-Fri with problems, questions or concerns. If you call after 8pm or on weekends, call the Hospital at [phone] and ask to speak to the Explosive Man technical illustrations map inker and the keyseater operator will contact that person for you. When should you call for help? Call [phone] anytime you think you may need emergency [...] any problems. Where can you learn more? [facility] View your After Visit Summary and more online at [email or web address] If you would like to provide feedback about your hospital experience, please call the Office of Patient and Family Relations at . If you have received this After Visit Summary in error, please immediately return it in person to the department, or notify the [facility] Privacy Office by calling toll free at between the hours of 8AM and 5PM to arrange for our retrieval of the documents at no cost to you. Content Version: 12.2 ?? [id number] [employer]. Care instructions adapted under license by [facility]. If you have questions about a medical condition or this instruction, always ask your healthcare professional. [employer] disclaims any warranty or liability for your [...] occurs, please contact your Doctor. Please call [phone] before 8pm Mon-Fri with problems, questions or concerns. If you call after 8pm or on weekends, call the Hospital at [phone] and ask to speak to the Explosive Man technical illustrations map inker and the keyseater operator will contact that person for you. When should you call for help? Call [phone] anytime you think you may need emergency [...] any problems. Where can you learn more? [facility] View your After Visit Summary and more online at [email or web address] If you would like to provide feedback about your hospital experience, please call the Office of Patient and Family Relations at . If you have received this After Visit Summary in error, please immediately return it in person to the department, or notify the [facility] Privacy Office by calling toll free at between the hours of 8AM and 5PM to arrange for our retrieval of the documents at no cost to you. Content Version: 12.2 ?? [id number] [employer]. Care instructions adapted under license by [facility]. If you have questions about a medical condition or this instruction, always ask your healthcare professional. [employer] disclaims any warranty or liability [...] 21 (FLONASE) 50 mcg/actuation Nare route daily [place], Suspension as needed. fluorouraciL (EFUDEX) 5 % [...] ischemia I99.8 ??? 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 HFrEF (heart failure with reduced ejection [...] MD [facility] GASTROENTEROLOGY DEPT [place], [place] [address] (Wo rk) 09/05/2022 Appointment Cardiology Trinity Reid MD [facility] CARDIOLOGY [place], [place] [address] (Wo rk) 09/05/2022 Office Visit Cardiology Trinity Reid MD [facility] ER DR CARDIOLOGY [place] [address] (Wo rk) documented as of this [...] Component Value Ref Test Analysis Performed At [facility] Range Method Time Signature UPPER GI [facility] PROVATION ENDOSCOPY Endoscopy Procedure Date: 06/25/2022 10:33 AM ? Patient Name: Koko Zamora ? Date of : 1940 ? Age: 81 ? Order #: [id number] ? Instrument Name: EC-760P- [id number] ? Procedure: ? Upper GI endoscopy Indications: ? Recent gastrointestinal bleeding Providers: ? Giovani Ponce, Isi puente, ? Brissa Vee RN, Juvenal ? Confalone Referring MD: ?[facility]: ? Propofol per Anesthesia Complications: ? No [...] Endoscope w as ? introduced through the [facility], and ? advanced to the second par [...] Component Value Ref Test Analysis Performed At [facility] Method Time Signature COLONOSCOPY [facility] PROVATION Endoscopy Procedure Date: 06/25/2022 10:33 AM ? Patient Name: Koko Zamora ? Date of : 1940 ? Age: 81 ? Order #: [id number] ? Instrument Name: EC-[id number]- [id number] ? Procedure: ? Colonoscopy Indications: ? Gastrointestinal [...] Procedure Code(s): ? --- Professional --- ? 45506, Colonoscopy, flexib le; with ? control of [...] of sigmoid ? colon CPT copyright 202 [employer]. All rights reserved. The codes documented in this report are preliminary and upon data assistant review may be revised to meet current [...] Procedure) documented in this encounter Care Teams Nurse Ortho Relationship Specialty Start Date End Date Bobby Das MD PCP - General 10/02/[address] [place] [address] [place] [phone] documented as of this encounter
--- OUTSIDE RECORDS SUMMARY | 2022-07-08 09:48 | XMS_ITS | Encounter Summary ---
:1940 Author Organization [facility] [place] [address] Care Team Providers Name Role Phone Bobby Das MD Primary Care Provider Reason for Visit Auth/Cert Specialty Diagnoses / Procedures Referred By Contact Refer red To Contact Diagnoses GIB (gastrointestinal bleeding) Abe [facility] [place] [address] Referral ID Status Reason Start Date Expiration Date Visits Requ ested Visits Authorized [id number] 1 1 Encounter Details Date Type Department Care Team Description 05/31/2022 Anesthesia Event G[place]ology [place] [facility] [place] Johnson [place] [facility] [place] [address] [facility] Yogi Machado CRNA [facility] [place] [address] [place] [address] Anesthesia Record Procedure Summary Procedure Name [...] fossa)Angella RN Hunter, Alysia O, RN right; wckp-eqd-xesmvh catheter system; 20 gauge; no longer indicated, [...] Procedure Summary Date: 05/31/22 Room / Location: [facility] ENDO 3 / [facility] ENDOSCOPY Anesthesia Start: 1603 Anesthesia Stop: 1657 Procedures: EGD, UPPER GI ENDOSCOPY (N/A Trunk) EGD, W CONTROL OF BLEEDING, ANY METHOD Diagnosis: (melena) Surgeons: Giovani Ponce MD Responsible Provider: Elmer Johnson MD Anesthesia Type: MAC ASA Status: 3 All Anesthesia Providers: Anesthesiologist: Elmer Johnson MD SPIRAL TUBE WINDER: Yogi Dawkins CRNA Vitals Value Taken Time BP 95/62 05/31/22 1720 Temp Pulse Resp 18 05/31/22 1720 SpO2 99 % 05/31/22 1720 Pain Level 0 05/31/22 1720 Patient Location: PACU/[facility] Level of Consciousness: Awake and Alert [...] IR Biopsy Spine 07/20/2019 [place] MD [facility] INTERVENTIONL RAD ??? IR VERTEBROPLASTY LUMBAR MULTIPLE LEVELS 07/20/2019 IR Vertebroplasty Lumbar Multiple Levels 07/20/2019 Bobby [place] MD [facility] INTERVENTIONL RAD ??? IR VERTEBROPLASTY THORACIC SINGLE LEVEL 10/25/2020 IR Vertebroplasty Thoracic Single Level 10/25/2020 Matt Chisholm MD [facility] INTERVENTIONL RAD ??? PRO EMBLC/THRMBC FEMORAL POPLITEAL AORTO-ILIAC ARTERY Left 05/15/2022 EMBOLECTOMY OR THROMBECTOMY, FEMOROPOPLITEAL, AORTOILIAC ARTERY BY LEG INCISION (WRVU 19.48) performed by Fito Summers MD at [facility] MAIN OR ??? PRO UPPER GI ENDOSCOPY, CTRL BLEED 05/31/2022 EGD, W CONTROL OF BLEEDING, ANY METHOD performed by Giovani Ponce MD at [facility] ENDOSCOPY ??? PRO UPPER GI ENDOSCOPY, DIAGNOSTIC N/A 05/31/2022 EGD, UPPER GI ENDOSCOPY performed by Giovani Ponce MD at [facility] ENDOSCOPY Social History Tobacco Use ??? [...] risks discussed with patient. Plan discussed with SPIRAL TUBE WINDER. Anesthesia Screening documented in this encounter Plan of Treatment Upcoming Encounters Date Type Specialty Care Team Description 08/08/2022 Office Visit Gastroenterology Negra Collins MD [facility] GASTROENTEROLOGY DEPT [place], [place] [address] (Wo rk) 09/05/2022 Appointment Cardiology Trinity Reid MD [facility] CARDIOLOGY [place], [place] [address] (Wo rk) 09/05/2022 Office Visit Cardiology Trinity Reid MD [facility] CARDIOLOGY [place] [address] (Wo rk) [...] mg documented in this encounter Care Teams Teacher Hearing Impaired Relationship Specialty Start Date End Date Bobby Das MD PCP - General 10/02/[address] [place] [address] [place] [phone] documented as of this encounter
--- OUTSIDE RECORDS SUMMARY | 2022-07-08 09:48 | XMS_ITS | Encounter Summary ---
:1940 [place] [address] Care Team Providers Name Role Phone Bobby Das MD Primary Care Provider Reason for Referral Consultation (Routine) - Authorized Specialty Diagnoses / Procedures Referred By Contact Refer red To Contact Dermatology Diagnoses Basal cell carcinoma (BCC) of right forehead Loretta Cohen MD Leboeuf, Matthew R, MD [facility] [address] [place] [address] [place] [address] Fax: Referral ID Status Reason Start Date Expiration Visits Visits Date Requested Authorized [id number] Authorized Consult, 06/17/2022 06/17/2023 1 1 Test & Treat Encounter Details Date Type Department Care Team Description 06/17/2022 Orders Only Dermatology at [facility] Basal cell carcinoma Nicol CARCAMO (BCC) of right [address] [place] [address] DERMATOLOGY [place], [place] [address] Social History Tobacco Use Types [...] 08/08/2022 Office Visit Gastroenterology Negra Collins MD [facility] GASTROENTEROLOGY DEPT [place], [place] [address] (Wo rk) 09/05/2022 Appointment Cardiology Trinity Reid MD [facility] CARDIOLOGY [place], [place] [address] (Wo rk) 09/05/2022 Office Visit Cardiology Trinity Reid MD [facility] CARDIOLOGY [place], [place] [address] (Wo rk) Scheduled Referrals Name Type Priority Associated Order Schedule Diagnoses Referral to Outpatient Referral Routine Basal cell Ordered: Dermatology carcinoma (BCC) of 2 right forehead documented as of this encounter Visit Diagnoses Diagnosis Basal cell carcinoma (BCC) of right fore head documented in this encounter Care Teams Electronics Department Manager Relationship Specialty Start Date End Date Bobby Das MD PCP - General 10/02/[address] [place] [address] [place] [address] documented as of this encounter
--- OUTSIDE RECORDS SUMMARY | 2022-07-08 09:48 | XMS_ITS | Encounter Summary ---
:1940 [place] [address] Care Team Providers Name Role Phone Bobby Das MD Primary Care Provider Encounter Details Date Type Department Care Team Description 06/13/2022 Tech Visit Vascular Lab at [facility], Doming[place] [address] Social History Tobacco Use Types Packs/Day [...] Gastroenterology Negra Collins MD [facility] DR GASTROENTEROLOGY DEPT [place], [place] [address] (Wo rk) 09/05/2022 Appointment Cardiology Trinity Reid MD [facility] CARDIOLOGY [place], [place] [address] (Wo rk) 09/05/2022 Office Visit Cardiology Trinity Reid MD [facility] CARDIOLOGY [place], [place] [address] (Wo rk) documented as of this encounter Procedures Procedure Name Priority Date/Time Associated Diagnosis Comme nts JOSSELYN, LEGS, MULTIPLE Routine 06/13/2022 7:13 AM Limb ischemia R esults for this LEVELS EDT procedure are i n the results section. documented in this encounter Results JOSSELYN, legs, multiple levels (06/13/2022 7:13 AM EDT) Component Value Ref Test Analysis Performed At [facility] Range Method Time Signature VB Text Department: Vascular Surgery Lab [facility] Report Patient: [id number] (ETTA BAH) CPT: 83646 Referring Physician: FITO SUMMERS ?? Phone: Indications: s/p L DOUBLER HELPER endart. Diabetes mellitus: no Findings: Right ?Pressure [...] disorder documented in this encounter Care Teams Dental Technician Relationship Specialty Start Date End Date Bobby Das MD PCP - General 10/02/[address] [place] [address] [place] [phone] documented as of this encounter
--- OUTSIDE RECORDS SUMMARY | 2022-07-08 09:48 | XMS_ITS | Encounter Summary ---
:1940 Author Organization [facility] [place] [address] Care Team Providers Name Role Phone Bobby Das MD Primary Care Provider Encounter Details Date Type Department Care Team Description 06/19/2022 Telephone Cardiology at [facility] Kourtney Jimenez, [facility] [place] [address] Social History Tobacco Use Types Packs/Day [...] Zamora: Requesting a referral to Cardiac Rehab [facility] Forward to Dr Reid documented in this encounter Plan of Treatment Upcoming Encounters Date Type Specialty Care Team Description 08/08/2022 Office Visit Gastroenterology Negra Collins MD [facility] GASTROENTEROLOGY DEPT [place], [place] [address] (Wo rk) 09/05/2022 Appointment Cardiology Trinity Reid MD [facility] CARDIOLOGY [place], [place] [address] (Wo rk) 09/05/2022 Office Visit Cardiology Trinity Reid MD [facility] CARDIOLOGY [place], [place] [address] (Wo rk) documented as of this encounter Visit Diagnoses Not on filedocumented in this encounter Care Teams Oriental Rug Stretcher Relationship Specialty Start Date End Date Bobby Das MD PCP - General 10/02/[address] [place] [address] [place] [address] documented as of this encounter
--- OUTSIDE RECORDS SUMMARY | 2022-07-08 09:48 | XMS_ITS | Encounter Summary ---
:1940 Author Organization [facility] [place] [address] Care Team Providers Name Role Phone Bobby Das MD Primary Care Provider Encounter Details Date Type Department Care Team Description 07/01/2022 Telephone Dermatology at [facility], Zainab Dupree, SEAMER [address] [place] [address] Social History Tobacco Use Types Packs/Day [...] Negra Collins MD [facility] DR GASTROENTEROLOGY DEPT [place], [place] [address] (Wo rk) 09/05/2022 Appointment Cardiology Trinity Reid MD [facility] CARDIOLOGY [place], [place] [address] (Wo rk) 09/05/2022 Office Visit Cardiology Trinity Reid MD [facility] CARDIOLOGY [place], [place] [address] (Wo rk) documented as of this encounter Visit Diagnoses Not on filedocumented in this encounter Care Teams Site Monitor Relationship Specialty Start Date End Date Bobby Das MD PCP - General 10/02/[address] [place] [address] [place] [phone] documented as of this encounter
--- OUTSIDE RECORDS SUMMARY | 2022-07-08 09:48 | XMS_ITS | Encounter Summary ---
:1940 Author Organization [facility] [place] [address] Care Team Providers Name Role Phone Bobby Das MD Primary Care Provider Encounter Details Date Type Department Care Team Description 06/23/2022 Telephone Gastroenterology at [facility] Alan August MD [facility] [place] [address] GASTROENTEROLOGY DEPT [phone] [place], [place] [address] (Wo rk) Social History Tobacco [...] Date: 06/23/2022 Time: 2:27 AM Referring Location: [facility] Referring Provider: Shahram Urena DC HPI: [...] Office Visit Gastroenterology Negra Collins MD [facility] GASTROENTEROLOGY DEPT [place], [place] [address] ( rk) 09/05/2022 Appointment Cardiology Trinity Reid MD [facility] CARDIOLOGY [place], [place] [address] ( rk) 09/05/2022 Office Visit Cardiology Trinity Reid MD [facility] CARDIOLOGY [place], [place] [address] ([facility]) documented as of this encounter Visit Diagnoses Not on filedocumented in this encounter Care Teams Landscaper Relationship Specialty Start Date End Date Bobby Das MD PCP - General 10/02/[address] [place] [address] [place] [phone] documented as of this encounter
--- OUTSIDE RECORDS SUMMARY | 2022-07-08 09:48 | XMS_ITS | Encounter Summary ---
:1940 Author Organization [facility] [place] [address] Care Team Providers Name Role Phone Bobby Das MD Primary Care Provider Encounter Details Date Type Department Care Team Description 06/25/2022 Surgery Gastroenterology at [facility] Giovani Ponce, EGD, UPPER GI [facility] [place] [address] [facility] [phone] [place], [place] [address] Social History Tobacco Use Types [...] the day after the procedure, use an xkxa-ypu-johtecm spray to numb your throat. Sucking on [...] occurs, please contact your Doctor. Please call [phone] before 8pm Mon-Fri with problems, questions or concerns. If you call after 8pm or on weekends, call the Hospital at [phone] and ask to speak to the Veterans' Coordinator second cook and baker and the treatment plant operator will contact that person for you. When should you call for help? Call [phone] anytime you think you may need emergency [...] any problems. Where can you learn more? [facility] View your After Visit Summary and more online at [email or web address] If you would like to provide feedback about your hospital experience, please call the Office of Patient and Family Relations at . If you have received this After Visit Summary in error, please immediately return it in person to the department, or notify the [facility] In[facility] Privacy Office by calling toll free at between the hours of 8AM and 5PM to arrange for our retrieval of the documents at no cost to you. Content Version: 12.2 ?? 0772-5248 [employer]. Care instructions adapted under license by [facility]. If you have questions about a medical condition or this instruction, always ask your healthcare professional. [employer] disclaims any warranty or liability for [...] occurs, please contact your Doctor. Please call [phone] before 8pm Mon-Fri with problems, questions or concerns. If you call after 8pm or on weekends, call the Hospital at [phone] and ask to speak to the Veterans' Coordinator second cook and baker and the treatment plant operator will contact that person for you. When should you call for help? Call 443 anytime you think you may need emergency [...] any problems. Where can you learn more? [facility] View your After Visit Summary and more online at [email or web address] If you would like to provide feedback about your hospital experience, please call the Office of Patient and Family Relations at . If you have received this After Visit Summary in error, please immediately return it in person to the department, or notify the [facility] Includes [facility] Privacy Office by calling toll free at between the hours of 8AM and 5PM to arrange for our retrieval of the documents at no cost to you. Content Version: 12.2 ?? 8376-9844 [employer]. Care instructions adapted under license by [facility]. If you have questions about a medical condition or this instruction, always ask your healthcare professional. [employer] disclaims any warranty or liability for your [...] 21 (FLONASE) 50 mcg/actuation Nare route daily Forbes, Suspension as needed. fluorouraciL (EFUDEX) 5 % [...] ischemia I99.8 ??? Coronary artery disease involving [place] coronary artery of [place] heart without angina [id number] ??? HFrEF (heart failure with reduced ejection [...] MD [facility] GASTROENTEROLOGY [place] [address] (Wo rk) 09/05/2022 Appointment Cardiology Trinity Reid MD [facility] CARDIOLOGY [place], [place] [address] (Wo rk) 09/05/2022 Office Visit Cardiology Trinity Reid MD [facility] CARDIOLOGY [place], [place] [address] (Wo rk) documented as of this [...] Value Ref Test Analysis Performed At [facility] Range Method Time Signature UPPER GI [facility] ENDOSCOPY Endoscopy Procedure Date: 06/25/2022 10:33 AM ? Patient Name: Koko Zamora ? Date of : 1940 ? Age: 81 ? Order #: [id number] ? Instrument Name: [id number]- [id number] ? Procedure: ? Upper GI endoscopy Indications: ? Recent gastrointestinal bleeding Providers: ? Giovani Ponce, Isi puente, ? Brissa Vee RN, Darrell ? Confalone Referring MD: ?[facility]: ? Propofol per Anesthesia Complications: ? No [...] Component Value Ref Test Analysis Performed At [facility] Method Time Signature COLONOSCOPY [facility] Endoscopy Procedure Date: 06/25/2022 10:33 AM ? Patient Name: Koko Zamora ? Date of : 1940 ? Age: 81 ? Order #: [id number] ? Instrument Name: [id number]- [id number] ? Procedure: ? Colonoscopy Indications: ? Gastrointestinal [...] Procedure Code(s): ? --- Professional --- ? 49536, Colonoscopy, flexib le; with ? control of [...] of sigmoid ? colon CPT copyright 2021 [employer]. All rights reserved. The codes documented in this report are preliminary and upon assistant professor surgical technology review may be revised to meet current [...] Procedure) documented in this encounter Care Teams Back Hoe Machine Operator Relationship Specialty Start Date End Date Bobby Das MD PCP - General 10/02/[address] [place] [address] [place] [phone] documented as of this encounter
--- OUTSIDE RECORDS SUMMARY | 2022-07-08 09:48 | XMS_ITS | Encounter Summary ---
:1940 [place] [address] Care Team Providers Name Role Phone Bobby Das MD Primary Care Provider Reason for Visit Reason Comments Dizziness Auth/Cert Specialty Diagnoses / Procedures Referred By Contact Refer red To Contact Diagnoses GIB (gastrointestinal bleeding) Abe [facility] [place] [address] Referral ID Status Reason Start Date Expiration Date Visits Requ ested Visits Authorized [id number] 1 1 Encounter Details Date Type Department Care Team Description 05/31/2022 - Hospital Encounter Intermediate Special Dixon Hinds MD [facility] [place] [address] GIB 06/02/2022 [place] [address] (gastrointestinal [facility] [place] [address] bleeding) ([facility] [place] [address] Dx) [place] [address] Social History Tobacco Use Types Packs/Day Years [...] Valle MD - 06/02/2022 12:48 PM EDT [facility] Medicine - Discharge Summary Patient Name: Koko [...] switching to a different bloodthinner with the nutritionist outpatient. Call your doctor or seek medical [...] switchingto a different blood thinner with your nutritionist as an outpatient Stopped Medications - Aspirin - Valsartan - Speak with your nutritionist about the timing of restarting this Follow-up Appointments Future Appointments Date Time Provider Department Center 06/10/2022 11:00 AM Loretta Cohen MD [facility] 06/13/2022 7:30 AM Edson [place]os [place] [facility] VAS LAB [facility] 06/13/2022 8:00 AM Fito Summers MD [facility] 06/13/2022 10:00 AM Alan Reid MD [address] Your Inpatient Medical Team at [facility] Name(s) of your inpatient provider(s): Dr. John Ames For questions regarding issues relating to your hospitalization on the Hospital Medicine Service, please contact your inpatient physician through the [facility] Merchant Patroller [phone]. Issues after hours and on weekends will be handled by the Hospitalist staff on-call. Your Primary Care Provider Bobby Das MD [phone] Future Appointments and Orders Future Appointments and Orders Future Appointments Provider Department Dept Phone 06/10/2022 11:00 AM Loretta Cohen MD Dermatology [facility] Arrive at: Primary School Teacher [address] [place] [phone] 06/13/2022 7:30 AM Edson [place]os [place] Vascular Lab at [facility] Arrive at: Primary School Teacher Area [phone] 06/13/2022 8:00 AM Fito Summers MD Vascular Surgery at [facility] Arrive at: Primary [employer] Teacher Area 06/13/2022 10:00 AM Alan Reid MD Cardiology at [facility] Arrive at: Primary [employer] Teacher Area [phone] For questions regarding this document or issues relating to this hospitalization on the Medical Service, please contact your inpatient physician through the [facility] Merchant Patroller . Issues after hours and on weekends [...] switching to a different bloodthinner with the nutritionist outpatient. Call your doctor or seek medical [...] switchingto a different blood thinner with your nutritionist as an outpatient Stopped Medications - Aspirin - Valsartan - Speak with your nutritionist about the timing of restarting this Follow-up Appointments Future Appointments Date Time Provider Department Center 06/10/2022 11:00 AM Loretta Cohen MD [facility] 06/13/2022 7:30 AM Edson [place] [facility] VAS LAB ILDA POWELL 06/13/2022 8:00 AM Fito Summers MD [facility] V SURG [facility] 06/13/2022 10:00 AM Alan Reid MD [facility] CARD 4A [facility] Your Inpatient Medical Team at [facility] Name(s) of your inpatient provider(s): Dr. John Ames For questions regarding issues relating to your hospitalization on the Hospital Medicine Service, please contact your inpatient physician through the [facility] Merchant Patroller [phone]. Issues after hours and on weekends will be handled by the Hospitalist staff on-call. Your Primary Care Provider Bobby Das MD [phone] documented in this encounter Medications at Time [...] 04/12/20 21 (FLONASE) 50 mcg/actuation Nare route [place], Suspension daily as needed. fluorouraciL (EFUDEX) 5 [...] spent >30 minutes (Day of Discharge Code 59670) involved in the final examination of the [...] were not included. Hospital Medicine Progress Note Waves Team - Pager #[phone] Admit Date: 05/31/2022 Name: Koko Zamora : [...] Kurt Ames MD Internal Medicine, PGY-1 Medicine Waves Team #[id number] Associated attestation - John Jolley MD - 06/01/2022 5:02 PM EDT [facility] Medicine -- Attending Progress Note Please [...] of two midnights or is on the [facility] inpatient only procedure list (status C) due to: GI Bleeding documented in this encounter H&P Notes Mahendra Victor MD - 05/31/2022 4:33 PM EDT Images from the original note were not included. [facility] Medicine (#[id number]) History and Physical Patient info: Name: Koko Zamora : 1940 PCP: Bobby Das MD PCP phone number: [phone] Date of Admission: 05/31/2022 ( Hospital Day [...] IR Biopsy Spine 07/20/2019 Bobby Marshall MD [facility] INTERVENTIONL RAD ??? IR VERTEBROPLASTY LUMBAR MULTIPLE LEVELS 07/20/2019 IR Vertebroplasty Lumbar Multiple Levels 07/20/2019 Bobby Marshall MD [facility] INTERVENTIONL RAD ??? IR VERTEBROPLASTY THORACIC SINGLE LEVEL 10/25/2020 IR Vertebroplasty Thoracic Single Level 10/25/2020 Matt Chisholm MD [facility] INTERVENTIONL RAD ??? PRO EMBLC/THRMBC FEMORAL POPLITEAL AORTO-ILIAC ARTERY Left 05/15/2022 EMBOLECTOMY OR THROMBECTOMY, FEMOROPOPLITEAL, AORTOILIAC ARTERY BY LEG INCISION (WRVU 19.48) performed by Fito Summers MD at [facility] MAIN OR No family history [...] 11 ??? fluticasone propionate (FLONASE) 50 mcg/actuation [place], Suspension as needed. ??? fluorouraciL (EFUDEX) 5 [...] Gas) No results found for: PHART, PO2ART, WRF7LKS, ECB4BWV Microbiology: N/A Pertinent radiology/diagnostic studies: Recent prior [...] Status: Full Arpita Valle MD, PGY-3 05/31/2022 [facility] Medicine # [id number] Attending Staff Admission Documentation I have examined [...] 05/31/2022 3:58 PM EDT Norepinephrine pulled from [facility] for soft BPs. Upon arrival to pt's [...] AM EDT Pt brought to XR by natural gas trader Brittany Ramirez MD - 05/31/2022 10:40 AM [...] who have questions please contact the health special needs caregiver that requested your imaging first. Chest PA [...] who have questions please contact the health special needs caregiver that requested your imaging first. Course as [...] recommendations from Brittany Tavares MD Resident 05/31/22 [id number] Associated attestation - Regina Hinds MD - [...] soft blood pressures, MD made aware. 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 Patient reported blurry/hazy [...] Heparin gtt - plan to [facility] Discharge planning Increase strength & mobility INDIVIDUALIZED [...] note were not included. [facility] [place] [phone] INPATIENT CARDIOLOGY CONSULT NOTE Date of Consultation: 06/01/2022 Admit Date: 05/31/2022 Place of Service: IS86/IS86-A Referring Attending: REGINA HINDS COLEMAN W FRIEDMAN, HARLEY P Responsible Log Loader Helper: Dr. Rizo Hospital Day 1 day Reason [...] LCX and LCx stent) who presented to [facility] on 05/[facility]/2022 for GI bleed. Patient presented [...] IR Biopsy Spine 07/20/2019 Bobby Marshall MD [facility] INTERVENTIONL RAD ??? IR VERTEBROPLASTY LUMBAR MULTIPLE LEVELS 07/20/2019 IR Vertebroplasty Lumbar Multiple Levels 07/20/2019 Bobby Marshall MD [facility] INTERVENTIONL RAD ??? IR VERTEBROPLASTY THORACIC SINGLE LEVEL 10/25/2020 IR Vertebroplasty Thoracic Single Level 10/25/2020 Matt Chisholm MD [facility] INTERVENTIONL RAD ??? PRO EMBLC/THRMBC FEMORAL POPLITEAL AORTO-ILIAC ARTERY Left 05/15/2022 EMBOLECTOMY OR THROMBECTOMY, FEMOROPOPLITEAL, AORTOILIAC ARTERY BY LEG INCISION (WRVU 19.48) performed by Fito Summers MD at [facility] MAIN OR ALLERGIES: Allergies Allergen [...] time ??? fluticasone propionate (FLONASE) 50 mcg/actuation [place], Suspension 1 spray by Each Nare route [...] Neurology: Without focal deficit ECG: Echocardiogram: 05/16/2022 [facility] 05/20/2022 Coronary Angiography: Dominance: Right Left Main [...] 3.5 guiding catheter and a 3.5 Fr [facility] [place] [address] 20 Mhz. Imaging was successful. Image [...] A premounted 2.75 x 30 mm Rudy Meigs (AMPARO) was deployed with a maximum inflation [...] may require modification of this regimen. Consult [facility] Interventional Cardiology for questions. The 1 year [...] Hb drop. Unknown source. has had a [facility] with stent placed and revascularization of left [...] who have questions please contact the health special needs caregiver that requested your imaging first. [employer] 48 [...] who have questions please contact the health special needs caregiver that requested your imaging first. Recent Labs [...] on xarelto, ischemic systolic heart failure (recent [facility] 05/20/2022 with 2V disease OM1 and distal RCA, had ostial LCX and LCx stent), recent admission for acutelimb ischemia LLE, where he had left common femoral transverse arteriotomy and primary repair, thromboembolectomy of the SFA, profunda and common femoral artery with 4 compartment fasciotomies, who presented to [facility] on 05/31/2022 for GI bleed. Cardiology consulted [...] attestation for additional insight. Rossy Anaya MD [facility] Assembler Bonding, PGY-5 Inpatient Cardiology Consults Pager #[phone] Please check Qgenda for on-call cardiology consults [...] A&Ox 4. On room air. VSS. 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 Adequate urine output, urinal at bedside, flomax [...] surrogate would be surrogate decision maker per [place] surrogate decision making law. (Only good for 180 days) Any patient receiving care in [place] must abide by [place] law. The hierarchy for surrogate decision making [...] (i) The agent with financial power of dough maker or a conservator appointed in accordance with [...] walker - rolling Home Address confirmed as: [address] [place] [id number] Social & Family Supports: All names listed below confirmed with patient as current and correct Extended Emergency Contact Information Primary Emergency Contact: Ursula Zamora Address: [address] [place] [id number] [facility] Relation: Spouse Current Care Provided by: self [...] Type: *No Product type* / Secondary Insurance: [facility] Secondary Insurance? (Only Medicare A&B): Yes ; Prescription Coverage: Yes Preferred Pharmacy: [id number] - [place], [place] - [address] [facility] [address] Status: Patient is a : No Primary Care Provider: Bobby Das MD [phone] Patient/Caregiver Goals of Treatment: Patient plans to [...] with transition of care planning. ASH Garcia Mailroom Supervisor [facility] Medicine/ Medical Specialties Pager- [phone] Plan [...] Operative Note Patient Name: Koko Rioson : [id number] MR#: [id number] Case Date: 05/31/2022 Surgeon: Surgeon(s) and Role: [...] stomach. He has had colonoscopies before in [place] - notes first ever he had 6 polyps removed but last colo 5 yrs ago was normal. He lives in [facility] [place]. Currently light-headedness is improved. No fevers, [...] IR Biopsy Spine 07/20/2019 Bobby Marshall MD [facility] INTERVENTIONL RAD ??? IR VERTEBROPLASTY LUMBAR MULTIPLE LEVELS 07/20/2019 IR Vertebroplasty Lumbar Multiple Levels 07/20/2019 Bobby Marshall MD [facility] INTERVENTIONL RAD ??? IR VERTEBROPLASTY THORACIC SINGLE LEVEL 10/25/2020 IR Vertebroplasty Thoracic Single Level 10/25/2020 Matt Chisholm MD [facility] INTERVENTIONL RAD ??? PRO EMBLC/THRMBC FEMORAL POPLITEAL AORTO-ILIAC ARTERY Left 05/15/2022 EMBOLECTOMY OR THROMBECTOMY, FEMOROPOPLITEAL, AORTOILIAC ARTERY BY LEG INCISION (WRVU 19.48) performed by Fito Summers MD at [facility] MAIN OR SOCIAL HX: Social [...] sounds, tympanic to percussion RECTAL: performed with briquette machine operator helper present, no overt masses, fissures, external hemorrhoids, [...] who have questions please contact the health special needs caregiver that requested your imaging first. Abdomen & [...] Visit Gastroenterology Negra Collins MD [facility] GASTROENTEROLOGY DEPT [place], [place] [address] (Wo bob) 09/05/2022 Appointment Cardiology Trinity Reid MD [facility] CARDIOLOGY [place], [place] [address] (Wo bob) 09/05/2022 Office Visit Cardiology Trinity Reid MD [facility] [place] [address] (Wo rk) documented as of [...] EDT) athologist Signature Neutrophils % 61.3 % [facility] Neutr Abs (ANC) 4.44 1.70 - [facility] 6.10 [facility] x10(3)/[facility] LABORATORY Lymphocytes % 25.2 % [facility] Lymphocytes Abs 1.8 0.9 - 3.2 [facility] x10(3)/[facility] LABORATORY Monocytes % 10.0 % [facility] Monocyte Abs 0.7 0.3 - 0.9 [facility] x10(3)/[facility] LABORATORY Eosinophils % 2.1 % [facility] Eosinophils Abs 0.2 0.0 - 0.4 [facility] x10(3)/[facility] LABORATORY Basophils % 0.7 % [facility] Basophils Abs 0.0 0.0 - 0.1 [facility] x10(3)/[facility] LABORATORY Immature Gran % 0.70 % [facility] Comment: Immature granulocytes(IG's)percentage an d absolute count will include metamyelocytes, myelocytes, and promyelo cytes. Blood smears from CBCs yielding IG's will be scanned manually for concor dance. If this scan disagrees with the automated IG or if promyelocytes are not ed, a manual differential will be performed. Rain Gran Abs 0.05 (H) 0.00 - 0.04 x10(3)/[facility] LABORATORY Specimen Anatomical Collection Method Collection Time Receive d Time (Source) Location / / Volume Laterality Blood 06/02/2022 8:20 AM 8:25 EDT AM EDT Resulting Agency Comment Spec In Lab Kurt Ames MD HEMATOLOGY ORDERABLES Performing Organization Address City/State/ZIP Code Phon e Number [place] [id number] [facility] LAB[address]ORY Drive (ABNORMAL) Hemogram (06/02/2022 8:20 AM EDT) Analysis Performed At Patho logist Time Signature WBC 7.2 4.0 - 9.5 [place] x10(3)/[facility] LABORATORY RBC 2.74 (L) 4.58 - [employer] 5.54 [facility] x10(6)/[facility] LABORATORY Hemoglobin 8.7 (L) 13.7 - [facility] 16.5 g/dL [facility] Hematocrit 25.7 (L) 40.5 - [facility] 48.5 % [facility] MCV 93.8 (H) 82.9 - [facility] 93.1 [facility] LABORATORY MCH 31.8 27.5 - [place] 32.1 pg [facility] MCHC 33.9 32.0 - [place] 35.7 g/dL [facility] Platelets 260 145 - 357 [facility] x10(3)/[facility] LABORATORY RDWSD 51.0 (H) 36.0 - [place] [facility] 45.0 [facility] LABORATORY RDWCV 14.9 (H) 11.4 - [facility] XIAO 13.8 % [facility] MPV 10.0 7.6 - 12.9 [facility] LABORATORY nRBC % Auto 0.0 % [facility] nRBC Abs Auto 0.000 0.000 - [place] 0.000 [facility] x10(3)/[facility] LABORATORY Specimen Anatomical Collection Method Collection Time Receive d Time (Source) Location / / Volume Laterality Blood 06/02/2022 8:20 AM 8:25 EDT AM EDT Resulting Agency Comment Spec In Lab Kurt Ames MD HEMATOLOGY ORDERABLES Performing Organization Address City/[facility]/[place] [address] Heparin (unfractionated) Level (06/02/2022 6:30 AM EDT) athologist Signature Heparin UFH 0.39 IU/mL [facility] LABORATORY Comment: Heparin (anti-Xa) levels [...] Organization Address City/State/[place] [address] Heparin (unfractionated) Level (06/02/2022 12:30 AM EDT) athologist Signature Heparin UFH 0.81 IU/mL [facility] LABORATORY Comment: Heparin (anti-Xa) levels [...] Victor MD HEMATOLOGY ORDERABLES Performing Organization Address City/[facility]/ZIP Code Phon e Number [address] Magnesium (06/02/2022 12:30 AM EDT) athologist Signature Magnesium 0.83 0.69 - 1.07 [facility] mmol/L [facility] Specimen Anatomical Collection Method Collection Time Receive d Time (Source) Location / / Volume Laterality Blood 06/02/2022 12:30 06/02/2022 AM EDT 12:40 AM EDT Resulting Agency Comment Spec In Lab Mahendra Victor MD CHEMISTRY ORDERABLES Performing Organization Address City/[facility] Phon e Number [address] (ABNORMAL) Basic Metabolic Panel (non-fasting) (06/02/2022 12:30 AM EDT) athologist Signature Glucose Lvl 151 65 - 199 [facility] mg/dL [facility] Comment: Diabetes: >=200 mg/dL plus symp toms BUN 12 10 - 20 mg/dL [facility]ORY Creatinine 0.71 (L) 0.80 - 1.50 mg/dL [facility] Sodium 142 135 - 145 mmol/L [facility] Potassium 3.8 3.5 - 5.0 mmol/L [facility] Comment: Please note: ??Patients with WBC >100,00 0 may have falsely elevated Potassium levels. ??For accurate Potassium quantif ication in these patients send serum separator tube (gold top) for subsequent determinations. ??Contact the Clinical Chemistry Laboratory if there are any qu estions. Chloride 108 (H) 98 - 107 mmol/L [facility] CO2 24 22 - 31 mmol/L [facility] Anion Gap 10 5 - 15 mmol/L [facility] Calcium 8.1 (L) 8.5 - 10.5 mg/dL [facility] Estimated GFR 93 >=60 mL/min/1.73 m?? [facility] Comment: This patient's estimated GFR [...] Organization Address City/State/ZIP Code Phon e Number [place] [id number] [address]OS[address]ITAL LAB[address]ORY Drive (ABNORMAL) Differential, Automated (06/01/2022 7:29 PM EDT) P athologist Signature Neutrophils % 68.8 % [facility] Neutr Abs (ANC) 5.34 1.70 - [facility] 6.10 [facility] x10(3)/[facility] LABORATORY Lymphocytes % 19.6 % [facility] Lymphocytes Abs 1.5 0.9 - 3.2 [facility] x10(3)/[facility] LABORATORY Monocytes % 8.1 % [facility] Monocyte Abs 0.6 0.3 - 0.9 [facility] x10(3)/[facility] LABORATORY Eosinophils % 1.8 % [facility] Eosinophils Abs 0.1 0.0 - 0.4 [facility] x10(3)/[facility] LABORATORY Basophils % 0.8 % [facility] Basophils Abs 0.1 0.0 - 0.1 [facility] x[facility](3)/[facility] LABORATORY Immature Gran % 0.90 % [facility] Comment: Immature granulocytes(IG's)percentage an d absolute count will include metamyelocytes, myelocytes, and promyelo cytes. Blood smears from CBCs yielding IG's will be scanned manually for concor dance. If this scan disagrees with the automated IG or if promyelocytes are not ed, a manual differential will be performed. Rain Gran Abs 0.07 (H) 0.00 - 0.04 x10(3)/[facility] LABORATORY Specimen Anatomical Collection Method Collection Time Receive d Time (Source) Location / / Volume Laterality Blood 06/01/2022 7:29 PM 7:29 EDT PM EDT Resulting Agency Comment Spec In Lab Kurt Ames MD HEMATOLOGY ORDERABLES Performing Organization Address City/State/[place] [address] (ABNORMAL) Hemogram (06/01/2022 7:29 PM EDT) Analysis Performed At Patho logist Time Signature WBC 7.8 4.0 - 9.5 [facility] x10(3)/[facility] LABORATORY RBC 2.65 (L) 4.58 - [facility] 5.54 [facility] x10(6)/[facility] LABORATORY Hemoglobin 8.3 (L) 13.7 - [facility] 16.5 g/dL [facility] Hematocrit 24.8 (L) 40.5 - [facility] 48.5 % [facility] MCV 93.6 (H) 82.9 - [facility] XIAO 93.1 [facility] LABORATORY MCH 31.3 27.5 - [facility] 32.1 pg [facility] MCHC 33.5 32.0 - [facility] XIAO 35.7 g/dL [facility] Platelets 263 145 - 357 [facility] x10(3)/[facility] LABORATORY RDWSD 52.8 (H) 36.0 - [facility] 45.0 [facility] LABORATORY RDWCV 15.4 (H) 11.4 - [facility] XIAO 13.8 % [facility] MPV 10.4 7.6 - 12.9 [facility] nRBC % Auto 0.0 % [facility] nRBC Abs Auto 0.000 0.000 - [facility] HAGEN 0.000 [facility] x10(3)/[facility] LABORATORY Specimen Anatomical Collection Method Collection Time Receive d Time (Source) Location / / Volume Laterality Blood 06/01/2022 7:29 PM 2 7:29 EDT PM EDT Resulting Agency Comment Spec In Lab Kurt Ames MD HEMATOLOGY ORDERABLES Performing Organization Address City/[facility]/ZIP Code Phon e Number [address] Heparin (unfractionated) Level (06/01/2022 7:29 PM EDT) P athologist Signature Heparin UFH 0.81 IU/mL [facility] LABORATORY Comment: Heparin (anti-Xa) levels [...] Organization Address City/State/[place] [address] (ABNORMAL) Heparin (unfractionated) Level (06/01/2022 11:32 AM EDT) Patholo gist Method Time Signature Heparin UFH 1.05 IU/mL [facility] Level (Critical) [facility] Comment: Critical Result called by ?? [...] Organization Address City/State/[place] [address] (ABNORMAL) Differential, Automated (06/01/2022 5:56 AM EDT) [facility] Method Time Signature Neutrophils % 62.7 % [facility] Neutr Abs (ANC) 6.11 (H) 1.70 - [facility] 6.10 [facility] x10(3)/[facility] LABORATORY Lymphocytes % 23.5 % [facility] Lymphocytes Abs 2.3 0.9 - 3.2 [facility] x10(3)/[facility] LABORATORY Monocytes % 10.0 % [facility] Monocyte Abs 1.0 (H) 0.3 - 0.9 [facility] x10(3)/[facility] LABORATORY Eosinophils % 2.2 % [facility] Eosinophils Abs 0.2 0.0 - 0.4 [facility] x10(3)/[facility] LABORATORY Basophils % 0.9 % [facility] Basophils Abs 0.1 0.0 - 0.1 [facility] x10(3)/[facility] LABORATORY Immature Gran % 0.70 % [facility] LABORATORY Comment: Immature granulocytes(IG's)percentage an d absolute count will include metamyelocytes, myelocytes, and promyelo cytes. Blood smears from CBCs yielding IG's will be scanned manually for concor dance. If this scan disagrees with the automated IG or if promyelocytes are not ed, a manual differential will be performed. Rain Gran Abs 0.07 (H) 0.00 - 0.04 x10(3)/[facility] LABORATORY Specimen Anatomical Collection Method Collection Time Receive d Time (Source) Location / / Volume Laterality Blood 06/01/2022 5:56 AM 6:05 EDT AM EDT Resulting Agency Comment Spec In Lab Arpita Valle MD HEMATOLOGY ORDERABLES Performing Organization Address City/State/ZIP Code Phon e Number [place] [id number] HOSPITAL LABORATORY Drive (ABNORMAL) Hemogram (06/01/2022 5:56 AM EDT) Analysis Performed At Patho logist Time Signature WBC 9.7 (H) 4.0 - 9.5 [facility] x10(3)/[facility] LABORATORY RBC 2.83 (L) 4.58 - [facility] XIAO 5.54 [facility] x10(6)/[facility] LABORATORY Hemoglobin 9.0 (L) 13.7 - [facility] 16.5 g/dL [facility] LABORATORY Hematocrit 26.7 (L) 40.5 - [facility] XIAO 48.5 % [facility] LABORATORY MCV 94.3 (H) 82.9 - [facility] 93.1 fL [facility] LABORATORY MCH 31.8 27.5 - [place] 32.1 pg [facility] LABORATORY MCHC 33.7 32.0 - [facility] XIAO 35.7 g/dL [facility] LABORATORY Platelets 250 145 - 357 [facility] x10(3)/[facility] LABORATORY RDWSD 54.3 (H) 36.0 - [place] XIAO 45.0 [facility] LABORATORY RDWCV 15.9 (H) 11.4 - [place] 13.8 % [facility] LABORATORY MPV 10.5 7.6 - 12.9 [facility] XIAO [facility] LABORATORY nRBC % Auto 0.0 % [facility] LABORATORY nRBC Abs Auto 0.000 0.000 - [place] 0.000 [facility] x10(3)/[facility] LABORATORY Specimen Anatomical Collection Method Collection Time Receive d Time (Source) Location / / Volume Laterality Blood 06/01/2022 5:56 AM 2 6:05 EDT AM EDT Resulting Agency Comment Spec In Lab Arpita Valle MD HEMATOLOGY ORDERABLES Performing Organization Address City/State/[place] [address] Heparin (unfractionated) Level (06/01/2022 4:30 AM EDT) athologist Signature Heparin UFH 0.68 IU/mL [facility] LABORATORY Comment: Heparin (anti-Xa) levels [...] Organization Address City/State/[place] [address] (ABNORMAL) Urinalysis with reflex Culture (06/01/2022 4:00 AM EDT) Patholo gist Method Time Signature Glucose UA 500 Negative [facility] (Critical) mg/dL [facility] LABORATORY Comment: Urinalysis result NOT critical without a combination of Glucose greater than or equal to 500 mg/dL AND Ketones greate r than or equal to 80 mg/dL Protein UA Negative Negative mg/dL [facility]ORAT[facility] Bilirubin UA Negative Negative mg/dL [facility] LABORATORY Comment: Clinical correlation required for positi ve Urine Bilirubin results as false positive may occur with some drugs and d rug related products. If a false positive is suspected a serum total bili quarles should be considered if clinically indicated. Urobilinogen UA Normal Normal mg/dL [facility] LABORATORY pH UA 6.0 5.0 - 8.0 [facility] LABORATORY Blood UA Negative Negative mg/dL [facility] Ketones UA Negative Negative mg/dL [facility] Nitrite UA Negative Negative [facility] LABORATORY Leukocytes UA Negative Negative [facility] LABORATORY Appearance UA Clear Clear [facility] LABORATORY Spec [place] UA >=1.030 (A) 1.005 - 1.030 [facility] LABORATORY Color UA Yellow Yellow [facility] LABORATORY Culture Reflexed No [facility] LABORATORY Specimen Anatomical Collection Method Collection Time Receive d Time (Source) Location / / Volume Laterality Clean Catch 06/01/2022 4:00 AM 4:26 Urine EDT AM EDT Resulting Agency Comment Spec In Lab Mahendra Victor MD URINE ORDERABLES Performing Organization Address City/State/ZIP Code Phon e Number [address] Magnesium (06/01/2022 1:00 AM EDT) P athologist Signature Magnesium 0.93 0.69 - 1.07 [facility] mmol/L [facility] LABORATORY Specimen Anatomical Collection Method Collection Time Receive d Time (Source) Location / / Volume Laterality Blood 06/01/2022 1:00 AM 2 1:37 EDT AM EDT Resulting Agency Comment Spec In Lab Mahendra Victor MD CHEMISTRY ORDERABLES Performing Organization Address City/State/ZIP Code Phon e Number [facility] [place] [address] (ABNORMAL) Basic Metabolic Panel (non-fasting) (06/01/2022 1:00 AM EDT) P athologist Signature Glucose Lvl 148 65 - 199 [facility] mg/dL [facility] LABORATORY Comment: Diabetes: >=200 mg/dL plus symp toms BUN 23 (H) 10 - 20 mg/dL [facility] LABORATORY Creatinine 0.78 (L) 0.80 - 1.50 mg/dL [facility] LABORATORY Sodium 141 135 - 145 mmol/L [facility] LABORATORY Potassium 4.0 3.5 - 5.0 mmol/L [facility] LABORATORY Comment: Please note: ??Patients with WBC >100,00 0 may have falsely elevated Potassium levels. ??For accurate Potassium quantif ication in these patients send serum separator tube (gold top) for subsequent determinations. ??Contact the Clinical Chemistry Laboratory if there are any qu estions. Chloride 108 (H) 98 - 107 mmol/L [facility]ORAT[facility] CO2 24 22 - 31 mmol/L [facility]OR[facility] Anion Gap 9 5 - 15 mmol/L [facility] LABORATORY Calcium 8.6 8.5 - 10.5 mg/dL [facility] LABORATORY Estimated GFR 91 >=60 mL/min/1.73 m?? [facility] Comment: This patient's estimated GFR [...] Organization Address City/State/[place] [address] (ABNORMAL) Differential, Automated (06/01/2022 12:00 AM EDT) athologist Signature Neutrophils % 64.6 % [facility]ORATORY Neutr Abs (ANC) 5.60 1.70 - [facility] 6.10 [facility] x10(3)/[facility] LABORATORY Lymphocytes % 22.4 % [facility]ORAT[facility] Lymphocytes Abs 1.9 0.9 - 3.2 [facility] x10(3)/[facility] LABORATORY Monocytes % 9.5 % [facility]ORATORY Monocyte Abs 0.8 0.3 - 0.9 [facility] x10(3)[facility] LABORATORY Eosinophils % 2.1 % [facility]ORATORY Eosinophils Abs 0.2 0.0 - 0.4 [facility] x10(3)[facility] LABORATORY Basophils % 0.6 % [facility]ORAT[facility] Basophils Abs 0.0 0.0 - 0.1 [facility] x10(3)/[facility] LABORATORY Immature Gran % 0.80 % [facility]ORATORY Comment: Immature granulocytes(IG's)percentage an d absolute count will include metamyelocytes, myelocytes, and promyelo cytes. Blood smears from CBCs yielding IG's will be scanned manually for concor dance. If this scan disagrees with the automated IG or if promyelocytes are not ed, a manual differential will be performed. Rain Gran Abs 0.07 (H) 0.00 - 0.04 x10(3)/[facility] LABORATORY Specimen (Source) Anatomical Collection Method Collection Time Re ceived Time Location / / Volume Laterality Blood 06/01/2022 06/01/2022 12:1 0 AM EDT Resulting Agency Comment Spec In Lab Arpita Valle MD HEMATOLOGY ORDERABLES Performing Organization Address City/State/[place] [address] (ABNORMAL) Hemogram (06/01/2022 12:00 AM EDT) Analysis Performed At Patho logist Time Signature WBC 8.7 4.0 - 9.5 [facility] x[facility](3)/[facility] LABORATORY RBC 2.77 (L) 4.58 - [place] 5.54 [facility] x10(6)/[facility] LABORATORY Hemoglobin 8.6 (L) 13.7 - [place] 16.5 g/dL [facility] LABORATORY Hematocrit 25.7 (L) 40.5 - [facility] XIAO 48.5 % [facility] LABORATORY MCV 92.8 82.9 - [facility] XIAO 93.1 [facility] LABORATORY MCH 31.0 27.5 - [place] 32.1 pg [facility] LABORATORY MCHC 33.5 32.0 - [place] 35.7 g/dL [facility] LABORATORY Platelets 260 145 - 357 [facility] x10(3)/[facility] LABORATORY RDWSD 51.9 (H) 36.0 - [facility] XIAO 45.0 [facility] LABORATORY RDWCV 15.5 (H) 11.4 - [place] 13.8 % [facility] LABORATORY MPV 10.4 7.6 - 12.9 [facility] nRBC % Auto 0.0 % [facility]ORAT[facility] nRBC Abs Auto 0.000 0.000 - [place] 0.000 [facility] x10(3)/[facility] LABORATORY Specimen (Source) Anatomical Collection Method Collection Time Re ceived Time Location / / Volume Laterality Blood 06/01/2022 06/01/2022 12:1 0 AM EDT Resulting Agency Comment Spec In Lab Arpita Valle MD HEMATOLOGY ORDERABLES Performing Organization Address City/State/ZIP [place] [address] (ABNORMAL) Differential, Automated (05/31/2022 9:17 PM EDT) P athologist Signature Neutrophils % 59.6 % [facility]ORATORY Neutr Abs (ANC) 3.98 1.70 - [facility] 6.10 [facility] x10(3)/[facility] LABORATORY Lymphocytes % 27.5 % [facility]ORATORY Lymphocytes Abs 1.8 0.9 - 3.2 [facility] x10(3)/[facility] LABORATORY Monocytes % 9.1 % [facility]ORATORY Monocyte Abs 0.6 0.3 - 0.9 [facility] x10(3)/[facility] LABORATORY Eosinophils % 2.4 % [facility]OR[facility] Eosinophils Abs 0.2 0.0 - 0.4 [facility] x10(3)/[facility] LABORATORY Basophils % 0.7 % [facility]ORAT[facility] Basophils Abs 0.0 0.0 - 0.1 [facility] x10(3)/[facility] LABORATORY Immature Gran % 0.70 % [facility]ATORY Comment: Immature granulocytes(IG's)percentage an d absolute count will include metamyelocytes, myelocytes, and promyelo cytes. Blood smears from CBCs yielding IG's will be scanned manually for concor dance. If this scan disagrees with the automated IG or if promyelocytes are not ed, a manual differential will be performed. Rain Gran Abs 0.05 (H) 0.00 - 0.04 x10(3)/[facility] LABORATORY Specimen Anatomical Collection Method Collection Time Receive d Time (Source) Location / / Volume Laterality Blood 05/31/2022 9:17 PM 9:25 EDT PM EDT Resulting Agency Comment Spec In Lab Arpita Valle MD HEMATOLOGY ORDERABLES Performing Organization Address City/State/ZIP Code Phon e Number [place] [phone] HOSPITAL LABORATORY Drive (ABNORMAL) Hemogram (05/31/2022 9:17 PM EDT) Analysis Performed At Patho logist Time Signature WBC 6.7 4.0 - 9.5 [facility] x10(3)/[facility] LABORATORY RBC 2.74 (L) 4.58 - [place] 5.54 [facility] x10(6)/[facility] LABORATORY Hemoglobin 8.5 (L) 13.7 - [facility] 16.5 g/dL [facility] LABORATORY Hematocrit 25.7 (L) 40.5 - [facility] 48.5 % [facility] LABORATORY MCV 93.8 (H) 82.9 - [facility] 93.1 [facility] LABORATORY MCH 31.0 27.5 - [facility] 32.1 pg [facility] LABORATORY MCHC 33.1 32.0 - [facility] 35.7 g/dL [facility] LABORATORY Platelets 233 145 - 357 [facility] x10(3)/[facility] LABORATORY RDWSD 51.9 (H) 36.0 - [facility] 45.0 [facility] LABORATORY RDWCV 15.3 (H) 11.4 - [facility] 13.8 % [facility] LABORATORY MPV 10.3 7.6 - 12.9 [facility] LABORATORY nRBC % Auto 0.0 % [facility] LABORATORY nRBC Abs Auto 0.000 0.000 - [facility] 0.000 [facility] x10(3)/[facility] LABORATORY Specimen Anatomical Collection Method Collection Time Receive d Time (Source) Location / / Volume Laterality Blood 05/31/2022 9:17 PM 9:25 EDT PM EDT Resulting Agency Comment Spec In Lab Arpita Valle MD HEMATOLOGY ORDERABLES Performing Organization Address City/State/[place] [address] Transfuse RBC (05/31/2022 7:36 PM EDT) Regina Hinds MD NURSING TREATMENT ORDERABLES - BLOOD ADMIN Transfuse RBC (05/31/2022 7:36 PM EDT) Regina Hinds MD NURSING TREATMENT ORDERABLES - BLOOD ADMIN UPPER GI ENDOSCOPY (05/31/2022 3:37 PM EDT) Component Value Ref Test Analysis Performed At Patholo gist Range Method Time Signature UPPER GI [facility] PROVATION ENDOSCOPY Endoscopy Procedure Date: 05/31/2022 3:37 PM ? Patient Name: Koko Zamora ? Date of : 1940 ? Age: 81 ? Order #: [id number] ? Instrument Name: [id number] ? Procedure: ? Upper GI endoscopy Indications: ? Melena, Suspected upper ? gastrointestinal bleeding Providers: ? Giovani Pocne, Torrey Gannon , ? Vani Wei, RN, [...] Procedure Code(s): ? --- Professional --- ? 30061, Esophagogastroduode noscopy, ? flexible, transoral; with control [...] stomach ? and duodenum CPT copyright 2020 [employer]. All rights reserved. The codes documented in this report are preliminary and upon weaving loom operator review may be revised to meet [...] who have questions please contact the health special needs caregiver that requested your imaging first. ? Narrative [...] contrast was not administered. COMPARISON: 05/15/2022 from [facility] FINDINGS: GI Tract: Pre-contrast: No bowel [...] enlarged lymph nodes. Vasculature: Patent common iliac, turn sewer al iliac, and common femoral arteries bilaterally. [...] contrast was not administered. COMPARISON: 05/15/2022 from [facility] FINDINGS: GI Tract: Pre-contrast: No bowel [...] enlarged lymph nodes. Vasculature: Patent common iliac, turn sewer al iliac, and common femoral arteries bilaterally. [...] ho have questions please contact the health special needs caregiver that requested your imaging first. Regina Hinds MD IMG CT ORDERABLES Type and Screen Validity (05/31/2022 1:43 PM EDT) [facility] Method Time Signature T&S only valid [facility] LABORATORY Comment: This Type and Screen result is only valid at the [facility] Specimen Anatomical Collection Method Collection Time Receive d Time (Source) Location / / Volume Laterality Blood 05/31/2022 1:43 PM 2 1:57 EDT PM EDT Resulting Agency Comment Spec In Lab Regina Hinds MD BLOOD BANK ORDERABLES Performing Organization Address City/[facility]/ZIP [place] [address] ABORH Recheck Status (05/31/2022 1:43 PM EDT) [facility] Method Time Signature ABORH Type Completed [facility] LABORATORY Specimen Anatomical Collection Method Collection Time Receive d Time (Source) Location / / Volume Laterality Blood 05/31/2022 1:43 PM 2 1:57 EDT PM EDT Resulting Agency Comment Spec In Lab Regina Hinds MD BLOOD BANK ORDERABLES Performing Organization Address City/[facility]/ZIP [place] [address] Antibody screen (05/31/2022 1:43 PM EDT) [facility] Method [place] Signature Ab Screen Negative [facility] LABORATORY Expires at 06/03/2022 [facility] [id number] on: [facility] LABORATORY Specimen Anatomical Collection Method Collection Time Receive d Time (Source) Location / / Volume Laterality Blood 05/31/2022 1:43 PM 2 1:57 EDT PM EDT Resulting Agency Comment Spec In Lab Regina Hinds MD BLOOD BANK ORDERABLES Performing Organization Address City/[facility]/ZIP [place] [address] ABO/Rh Typing (05/31/2022 1:43 PM EDT) P athologist Signature ABORh Type O Pos [facility] LABORATORY Specimen Anatomical Collection Method Collection Time Receive d Time (Source) Location / / Volume Laterality Blood 05/31/2022 1:43 PM 2 1:57 EDT PM EDT Resulting Agency Comment Spec In Lab Regina Hinds MD BLOOD BANK ORDERABLES Performing Organization Address City/[facility] [place] [address] Prepare RBC (05/31/2022 1:35 PM EDT) P athologist Signature Dispensed? Yes [facility]ORATORY Specimen Anatomical Collection Method Collection Time Receive d Time (Source) Location / / Volume Laterality Blood 05/31/2022 1:35 PM 2 1:30 EDT PM EDT Regina Hinds MD BLOOD BANK ORDERABLES Performing Organization Address City/[facility]/ZIP [place] [address] Prepare RBC (05/31/2022 1:25 PM EDT) P athologist Signature Dispensed? Yes [facility]OR[facility] Specimen Anatomical Collection Method Collection Time Receive d Time (Source) Location / / Volume Laterality Blood 05/31/2022 1:25 PM 2 1:23 EDT PM EDT Regina Hinds MD BLOOD BANK ORDERABLES Performing Organization Address City/[facility] [place] [address] (ABNORMAL) Differential, Automated (05/31/2022 12:44 PM EDT) P athologist Signature Neutrophils % 62.0 % [facility] Neutr Abs (ANC) 4.71 1.70 - [facility] 6.10 [facility] x10(3)/[facility] LABORATORY Lymphocytes % 24.1 % [facility] Lymphocytes Abs 1.8 0.9 - 3.2 [facility] x10(3)/[facility] LABORATORY Monocytes % 10.8 % [facility] Monocyte Abs 0.8 0.3 - 0.9 [facility] x10(3)/[facility] LABORATORY Eosinophils % 1.6 % [facility] Eosinophils Abs 0.1 0.0 - 0.4 [facility] x10(3)/[facility] LABORATORY Basophils % 0.7 % [facility] Basophils Abs 0.0 0.0 - 0.1 [facility] x10(3)/[facility] LABORATORY Immature Gran % 0.80 % [facility] Comment: Immature granulocytes(IG's)percentage an d absolute count will include metamyelocytes, myelocytes, and promyelo cytes. Blood smears from CBCs yielding IG's will be scanned manually for concor dance. If this scan disagrees with the automated IG or if promyelocytes are not ed, a manual differential will be performed. Rain Gran Abs 0.06 (H) 0.00 - 0.04 x10(3)/[facility] LABORATORY Specimen Anatomical Collection Method Collection Time Receive d Time (Source) Location / / Volume Laterality Blood 05/31/2022 12:44 05/31/2022 PM EDT 12:57 PM EDT Resulting Agency Comment Spec In Lab Brittany Ramirez MD HEMATOLOGY ORDERABLES Performing Organization Address City/State/ZIP Code Phon e Number [place] [phone] HOSPITAL LABORATORY Drive (ABNORMAL) Hemogram (05/31/2022 12:44 PM EDT) Analysis Performed At Patho logist Time Signature WBC 7.6 4.0 - 9.5 [facility] x10(3)/[facility] LABORATORY RBC 2.11 (L) 4.58 - [facility] 5.54 [facility] x10(6)/[facility] LABORATORY Hemoglobin 6.9 (L) 13.7 - [facility] 16.[facility] g/dL [facility] LABORATORY Hematocrit 20.8 (L) 40.5 - [facility] 48.5 % [facility] LABORATORY MCV 98.6 (H) 82.9 - [facility] 93.1 [facility] LABORATORY MCH 32.7 (H) 27.5 - [facility] 32.1 pg [facility] LABORATORY MCHC 33.2 32.0 - [facility] 35.7 g/dL [facility] Platelets 255 145 - 357 [facility] x10(3)/[facility] LABORATORY RDWSD 47.7 (H) 36.0 - [facility] 45.0 [facility] RDWCV 13.4 11.4 - [facility] 13.8 % [facility] LABORATORY MPV 10.7 7.6 - 12.9 [facility] LABORATORY nRBC % Auto 0.0 % [facility] nRBC Abs Auto 0.000 0.000 - [facility] 0.000 [facility] x10(3)/[facility] LABORATORY Specimen Anatomical Collection Method Collection Time Receive d Time (Source) Location / / Volume Laterality Blood 05/31/2022 12:44 05/31/2022 PM EDT 12:57 PM EDT Resulting Agency Comment Spec In Lab Brittany Ramirez MD HEMATOLOGY ORDERABLES Performing Organization Address City/State/[place] [address] (ABNORMAL) BLOOD GAS 2 VENOUS (05/31/2022 11:24 AM EDT) P athologist Signature pH [place] 7.38 7.32 - [facility] 7.42 [facility] LABORATORY pCO2 [place] 40 (L) 41 - 51 [facility] LABORATORY pO2 [place] 18 (L) 25 - 40 [facility] LABORATORY HCO3 [place] 23.3 mmol/L [facility] BE [place] -1.8 mmol/L [facility] Hgb Blood Gas 7.0 (L) 13.7 - [facility] 16.5 g/dL [facility] LABORAT[facility] O2HB [place] 24.3 % [facility] COHB [place] 1.4 % [facility] Comment: Nonsmokers: 0.5-1.5% COHB Smokers: Variable, but usually less than 10% Toxic: 20-30% COHB Lethal: Greater than 60% COHB METHB [place] 1.7 (H) <=1.5 % [facility] LABORATORY Na Whole Blood 137 135 - 145 mmol/L [facility] LABORAT[facility] K Whole Blood 3.9 3.5 - 5.0 mmol/L [facility] LABORATORY Comment: Please note: Patients with WBC >100,000 may have falsely elevated Potassium levels. Contact the Clinical Chemistry L aboratory if there are any questions. ICa Whole Blood 1.19 1.15 - 1.33 mmol/L [facility] Comment: Note: ??Total bilirubin higher than 20 m g/dL may lead to falsely low ionized calcium. CL Whole Blood 107 98 - 107 mmol/L [facility] LABORAT[facility] Gluc Whole Bld 204 (H) 65 - 199 mg/dL [facility] [...] Organization Address City/State/[place] [address] TSH [place] (05/31/2022 11:20 AM EDT) P athologist Signature TSH 1.67 0.27 - 4.20 [facility] mcIU/mL [facility] LAB[facility]AT[facility] Comment: Reference Interval (mcIU/mL): Females: ??First Trimester: 0.23-3.88 ??Second Trimester: 0.22-3.90 ??Third Trimester: 0.44-4.66 Specimen Anatomical Collection Method Collection Time Receive d Time (Source) Location / / Volume Laterality Blood 05/31/2022 11:20 05/31/2022 AM EDT 11:28 AM EDT Resulting Agency Comment Spec In Lab Regina Hinds MD CHEMISTRY ORDERABLES Performing Organization Address City/State/[place] [address] XR Chest PA & [...] who have questions please contact the health special needs caregiver that requested your imaging first. ? Narrative [...] ho have questions please contact the health special needs caregiver that requested your imaging first. Regina Hinds MD IMG DX ORDERABLES Lipase (05/31/2022 10:50 AM EDT) athologist Signature Lipase 41 0 - 60 [facility]/L [facility] Specimen Anatomical Collection Method Collection Time Receive d Time (Source) Location / / Volume Laterality Blood Venous Draw / 05/31/2022 10:50 05/31/2022 Unknown AM EDT 11:11 AM EDT Resulting Agency Comment Spec In Lab Zain Champion MD CHEMISTRY ORDERABLES Performing Organization Address City/State/[place] [address] (ABNORMAL) Hepatic Function Panel (05/31/2022 10:50 AM EDT) Analysis Performed At Patho logist Time Signature Total Protein 6.4 6.1 - 8.0 [facility] XIAO g/dL [facility] Albumin 4.1 3.2 - 5.2 [facility] XIAO g/dL [facility] AST 24 0 - 39 [facility]L [facility] ALT 44 0 - 55 [facility] unit[facility]L [facility] Alk Phos 63 40 - 130 [facility]L [facility] Total <0.2 (L) 0.2 - 1.3 [facility] Bilirubin mg/dL [facility] Bili, Direct 0.1 0.0 - 0.3 [facility] mg/dL [facility] Specimen Anatomical Collection Method Collection Time Receive d Time (Source) Location / / Volume Laterality Blood Venous Draw / 05/31/2022 10:50 05/31/2022 Unknown AM EDT 11:11 AM EDT Resulting Agency Comment Spec In Lab Zain Champion MD CHEMISTRY ORDERABLES Performing Organization Address City/[facility]/ZIP Code Phon e Number [address] Blue Tube HOLD (05/31/2022 10:50 AM EDT) P athologist Signature Blue Hold Sample in [facility] lab. [facility] Specimen Anatomical Collection Method Collection Time Receive d Time (Source) Location / / Volume Laterality Blood Venous Draw / 05/31/2022 10:50 05/31/2022 Unknown AM EDT 11:05 AM EDT Brittany Ramirez MD HEMATOLOGY ORDERABLES Performing Organization Address City/[facility]/ZIP Code Phon e Number [address] (ABNORMAL) Differential, Automated (05/31/2022 10:50 AM EDT) P athologist Signature Neutrophils % 66.9 % [facility] Neutr Abs (ANC) 5.58 1.70 - [facility] 6.10 [facility] x10(3)/[facility] LABORATORY Lymphocytes % 22.2 % [facility] Lymphocytes Abs 1.8 0.9 - 3.2 [facility] x10(3)/[facility] LABORATORY Monocytes % 7.8 % [facility] Monocyte Abs 0.6 0.3 - 0.9 [facility] x10(3)/[facility] LABORATORY Eosinophils % 1.2 % [facility] Eosinophils Abs 0.1 0.0 - 0.4 [facility] x10(3)/[facility] LABORATORY Basophils % 0.7 % [facility] Basophils Abs 0.1 0.0 - 0.1 [facility] x10(3)/[facility] LABORATORY Immature Gran % 1.20 % [facility] Comment: Immature granulocytes(IG's)percentage an d absolute count will include metamyelocytes, myelocytes, and promyelo cytes. Blood smears from CBCs yielding IG's will be scanned manually for concor dance. If this scan disagrees with the automated IG or if promyelocytes are not ed, a manual differential will be performed. Rain Gran Abs 0.10 (H) 0.00 - 0.04 x10(3)/[facility] LABORATORY Specimen Anatomical Collection Method Collection Time Receive d Time (Source) Location / / Volume Laterality Blood 05/31/2022 10:50 05/31/2022 AM EDT 11:03 AM EDT Resulting Agency Comment Spec In Lab Brittany Ramirez MD HEMATOLOGY ORDERABLES Performing Organization Address City/State/ZIP Code Phon e Number [place] [phone] (ABNORMAL) Hemogram (05/31/2022 10:50 AM EDT) Analysis Performed At Patho logist Time Signature WBC 8.3 4.0 - 9.5 [facility] x10(3)/[facility] LABORATORY RBC 2.26 (L) 4.58 - [facility] 5.54 [facility] x10(6)/[facility] LABORATORY Hemoglobin 7.4 (L) 13.7 - [facility] 16.5 g/dL [facility] Hematocrit 22.3 (L) 40.5 - [facility] 48.5 % [facility] MCV 98.7 (H) 82.9 - [facility] 93.1 fL [facility] MCH 32.7 (H) 27.5 - [facility]AG[facility] 32.1 pg [facility] MCHC 33.2 32.0 - [facility] 35.7 g/dL [facility] Platelets 283 145 - 357 [facility] x10(3)/[facility] LABORATORY RDWSD 47.0 (H) 36.0 - [facility] 45.0 [facility] LABORATORY RDWCV 13.4 11.4 - [facility] X[facility] 13.8 % [facility] MPV 10.8 7.6 - 12.9 [facility] LABORATORY nRBC % Auto 0.0 % [facility] nRBC Abs Auto 0.000 0.000 - [facility] XIAO 0.000 [facility] x10(3)/[facility] LABORATORY Specimen Anatomical Collection Method Collection Time Receive d Time (Source) Location / / Volume Laterality Blood 05/31/2022 10:50 05/31/2022 AM EDT 11:03 AM EDT Resulting Agency Comment Spec In Lab Brittany Ramirez MD HEMATOLOGY ORDERABLES Performing Organization Address City/State/ZIP Code Phon e Number [address] Phosphorus (05/31/2022 10:50 AM EDT) P athologist Signature Phosphorus 3.2 2.5 - 4.5 [facility] XIAO mg/dL [facility] Specimen Anatomical Collection Method Collection Time Receive d Time (Source) Location / / Volume Laterality Blood 05/31/2022 10:50 05/31/2022 AM EDT 11:03 AM EDT Resulting Agency Comment Spec In Lab Regina Hinds MD CHEMISTRY ORDERABLES Performing Organization Address City/State/ZIP Code Phon e Number [address] Magnesium (05/31/2022 10:50 AM EDT) P athologist Signature Magnesium 0.93 0.69 - 1.07 [facility] XIAO mmol/L [facility] Specimen Anatomical Collection Method Collection Time Receive d Time (Source) Location / / Volume Laterality Blood 05/31/2022 10:50 05/31/2022 AM EDT 11:03 AM EDT Resulting Agency Comment Spec In Lab Regina Hinds MD CHEMISTRY ORDERABLES Performing Organization Address City/State/ZIP Code Phon e Number [address] (ABNORMAL) pro-Brain Natriuretic Peptide (05/31/2022 10:50 AM EDT) athologist Signature ProBNP 1,077 (H) <=449 [facility] SoCAT pg/mL [facility] Specimen Anatomical Collection Method Collection Time Receive d Time (Source) Location / / Volume Laterality Blood 05/31/2022 10:50 05/31/2022 AM EDT 11:03 AM EDT Resulting Agency Comment Spec In Lab Regina Hinds MD CHEMISTRY ORDERABLES Performing Organization Address City/State/Z[place] [address] Troponin (05/31/2022 10:50 AM EDT) athologist Signature Troponin-T <0.01 0.00 - 0.00 [facility] XIAO ng/mL [facility] Comment: The 99th percentile for Troponin T is le ss than 0.01 ng/mL, any detectable cTnT concentration using this assay should be considered elevated. According to the third universal definit ion of myocardial infarction the following criteria with a clinical prese ntation consistent with acute myocardial ischemia meets the diagnosis for a myocardial infarction (NV). Detection of a rise and/or fall of [...] additional sample may be indicated. Reference: Third [place] Definition of Myocardial Infarction. Journal of the [place] [employer] 2012;60:1581-98 Specimen Anatomical Collection Method Collection Time Receive d Time (Source) Location / / Volume Laterality Blood 05/31/2022 10:50 05/31/2022 AM EDT 11:03 AM EDT Resulting Agency Comment Spec In Lab Regina Hinds MD CHEMISTRY ORDERABLES Performing Organization Address City/State/ZIP Code Phon e Number [place] [phone] (ABNORMAL) Basic Metabolic Panel (non-fasting) (05/31/2022 10:50 AM EDT) athologist Signature Glucose Lvl 223 (H) 65 - 199 [facility] mg/dL [facility] Comment: Diabetes: >=200 mg/dL plus symp toms BUN 39 (H) 10 - 20 mg/dL [facility] Creatinine 0.91 0.80 - 1.50 mg/dL [facility] Sodium 140 135 - 145 mmol/L [facility] Potassium 4.1 3.5 - 5.0 mmol/L [facility] Comment: Please note: ??Patients with WBC >100,00 0 may have falsely elevated Potassium levels. ??For accurate Potassium quantif ication in these patients send serum separator tube (gold top) for subsequent determinations. ??Contact the Clinical Chemistry Laboratory if there are any qu estions. Chloride 107 98 - 107 mmol/L [facility] CO2 23 22 - 31 mmol/L [facility] Anion Gap 10 5 - 15 mmol/L [facility] Calcium 9.1 8.5 - 10.5 mg/dL [facility] Estimated GFR 86 >=60 mL/min/1.73 m?? [facility] Comment: This patient's estimated GFR [...] Organization Address City/State/[place] [address] EKG 12 Lead (05/31/2022 10:11 AM EDT) Component Value Ref Range Test Analysis Performed Pathologis t Method Time At Signature Ventricular rate 106 BPM MUSE SYSTEM QRS Duration 122 ms MUSE SYSTEM Q-T Interval 368 ms MUSE SYSTEM QTC Calculated 488 ms MUSE SYSTEM (Bezet) Calculated R [place] -43 degrees MUSE SYSTEM Calculated T [place] 109 degrees MUSE SYSTEM INTERPRETATION Atrial fibrillation with rapid ventricular response MUSE SYSTEM Left axis deviation Minimal voltage criteria for LVH, may be normal variant ( [place] product ) Cannot rule out Anterior infarct , age undetermined Abnormal ECG When compared with ECG of 20-MAY-2022 19:04, No significant change was found I personally reviewed the tracing and edited the fellows int erpretation Confirmed by fellow MD Mike, [place] ([id number]) on 022 8:36:21 PM Confirmed by MD [...] (Lidoderm) 5% patch 2 patch(Linked Group 1) 5890 (Patch Applied - Provider: Raven Barbour RN [...] - Less than 0.1 international unit/mL: Ad blood splatter analyst PRN bolus and increase rate by [...] to med 0-4,000 Units, Intravenous, BOLUS PER [facility], Starting on Fri05/31/22 at 2014, Until [...]
Routine documented in this encounter Care Teams Title Insurance Sales Representative Relationship Specialty Start Date End Date Bobby Das MD PCP - General 10/02/[address] [place] [address] [place] [id number] documented as of this encounter
--- OUTSIDE RECORDS SUMMARY | 2022-07-08 09:48 | XMS_ITS | Encounter Summary ---
:1940 [place] [address] Care Team Providers Name Role Phone Bobby Das MD Primary Care Provider Encounter Details Date Type Department Care Team Description 06/13/2022 Office Visit Vascular Surgery at [facility] Fito Summers MD Limb ischemia [facility] [place] [phone] VASCULAR SURGERY [phone] [place] [id number] (Wo rk) Social History Tobacco Use Types [...] s/p repair Overview Note: Surgery done at [facility] in 2000 ??? Hypertriglyceridemia Overview Note: [...] with ABIs. Fito Summers MD Vascular Surgery [facility] Emily Power CMA - 06/13/2022 8:00 AM EDT Handwashing performed, gloves on.As instructed by windy removed on LLE medial and lateral aspect, cleansed after staple remover, steri strips applied. Gloves off, handwashing performed. documented in this encounter Plan of Treatment Upcoming Encounters Date Type Specialty Care Team Description 08/08/2022 Office Visit Gastroenterology Negra Collins MD [facility] GASTROENTEROLOGY DEPT [place], [place] [address] (Wo rk) 09/05/2022 Appointment Cardiology Trinity Reid MD [facility] DR [address] [place], [place] [address] (Wo rk) 09/05/2022 Office Visit Cardiology Trinity Reid MD [facility] DR [address] [place], [place] [address] (Wo rk) documented as of this encounter Visit Diagnoses Diagnosis Limb ischemia Unspecified circulatory system disorder documented in this encounter Care Teams Hair Worker Relationship Specialty Start Date End Date Bobby Das MD PCP - General 10/02/[address] [place] [address] [place] [address] documented as of this encounter
--- OUTSIDE RECORDS SUMMARY | 2022-07-08 09:48 | XMS_ITS | Encounter Summary ---
:1940 Author Organization [facility] [place] [address] Care Team Providers Name Role Phone Bobby Das MD Primary Care Provider Reason for Referral Consultation (Routine) - Closed Specialty Diagnoses / Referred By Contact Referred To Contact Procedures Cardiac Rehabilitation Diagnoses HFrEF (heart failure with reduced ejection fraction) Coronary artery disease involving [place] coronary artery of [place] heart without angina pectoris [facility], MD [place] [address] [place]ARDIOLOGY [address] [place] [address] Referral ID Status Reason Start Date Expiration Date Visits V isits Requested Authorized [id number] Closed Consult, 06/20/2022 12/17/2022 36 36 Test & Treat Encounter Details Date Type Department Care Team Description 06/20/2022 Orders Only Cardiology at [facility] Alan Reid HFrEF (heart failure with re duced ejection fraction); [facility] MD Kurt Coronary artery disease involving [place] coronary artery of [place] heart [place] [address] CARDIOLOGY [phone] [place], [place] [address] (Wo rk) Social History Tobacco [...] Negra Collins MD [facility] GASTROENTEROLOGY DEPT [place], [place] [address] (Wo rk) 09/05/2022 Appointment Cardiology Trinity Reid MD [facility] CARDIOLOGY [place], [place] [address] (Wo rk) 09/05/2022 Office Visit Cardiology Trinity Reid MD [facility] CARDIOLOGY [place], [place] [address] (Wo rk) Scheduled Referrals Name Type Priority Associated Diagnoses [facility] to Outpatient Referral Routine HFrEF (heart failure Ordered: Cardiac Rehab with reduced 06/20/2022 ejection fractio n) Coronary artery disease involving [place] coronary artery of [place] heart without angina pectoris documented as of this encounter Visit Diagnoses Diagnosis HFrEF (heart failure with reduced ejecti on fraction) Coronary artery disease involving [place] coronary artery of [place] heart without angina pectoris documented in this encounter Care Teams Magazine Grinder Loader Relationship Specialty Start Date End Date Bobby Das MD PCP - General 10/02/[address] [place] [address] [place] [phone] documented as of this encounter
--- OUTSIDE RECORDS SUMMARY | 2022-07-08 09:49 | XMS_ITS | Encounter Summary ---
:1940 Author Organization [place] [place] [address] Care Team Providers Name Role Phone Bobby Das MD Primary Care Provider Reason for Referral Consultation (Routine) - Authorized Specialty Diagnoses / Procedures Referred By Contact Refer red To Contact Diagnoses Non-ST elevation myocardial infarction (NSTEMI) Limb ischemia Nasrin Parra PA [facility] Tobacco Treatment [facility] [place] [address] [place] [address] Referral ID Status Reason Start Date Expiration Visits Visits Date Requested Authorized [id number] Authorized Consult, 05/21/2022 05/21/2023 1 1 Test & Treat iagnostic Test (Routine) - Closed Specialty Diagnoses / Procedures Referred By Contact Refer red To Contact Cardiology Diagnoses Paroxysmal atrial fibrillation Nasrin Parra PA [facility] Non-Inv Card Lab Procedures Ziopatch 48 Hrs-15 Days [facility] [place] [address] [place] [address] Fax: Referral ID Status Reason Start Date Expiration Date Visits V isits Requested Authorized [id number] Closed Specialty 05/21/2022 10/21/2022 1 1 Service Requested Consultation (Routine) - Closed Specialty Diagnoses / Procedures Referred By Contact Refer red To Contact Cardiology Diagnoses HFrEF (heart failure with reduced ejection fraction) Paroxysmal atrial fibrillation Post-hospital follow-up, s/p PCI with stenting, heart failure Nasrin Parra PA [facility] Cardiology 4a [facility] D [facility] [place] [address] [place] [address] Referral ID Status Reason Start Date Expiration Date Visits V isits Requested Authorized [id number] Closed Consult, 05/21/2022 05/21/2023 1 1 Test & Treat iagnostic Test (Routine) - Authorized Specialty Diagnoses / Procedures Referred By Contact Refer red To Contact Diagnoses Limb ischemia Nasrin Parra PA [facility] Vascular Lab 3v Procedures JOSSELYN, legs, multiple levels [facility] [place] [address] [place] [address] Referral ID Status Reason Start Expiration Visits Visits Date Date Requested Authorized [id number] Authorized Specialty 05/21/2022 05/21/2023 1 1 Service Requested eter [facility] (Routine) - Authorized Specialty Diagnoses / Procedures Referred By Contact Refer red To Contact Diagnoses Limb ischemia Fito Summers MD Home Health & Hospice, [facility] VASCULAR SURGERY [address] [place] [address] [address] Fax: Referral ID Status Reason Start Date Expiration Visits Visits Date Requested Authorized [id number] Authorized Consult, 05/21/2022 11/17/2022 999 999 Test & Treat Reason for Visit Reason Comments Left Leg Pain Auth/Cert Specialty Diagnoses / Procedures Referred By Contact Refer red To Contact Diagnoses Limb ischemia LLE thrombus Fito Summers MD [facility] D [place] [address] Referral ID Status Reason Start Date Expiration Date Visits Requ ested Visits Authorized [id number] 1 1 Encounter Details Date Type Department Care Team Description 05/15/2022 - Hospital Intermediate Cardiac Ravi Summers MD [facility] [place] [address] Atrial fibrillation, unspecified type; 05/21/2022 Encounter Care Unit Wellington Gerard MD [facility] [place] [address] Non-ST elevation myocardial infarction ( NSTEMI); [facility] Limb isch emia; [facility] HFrEF (heart failure with re duced ejection fraction); [facility] [address]oxysma [place] [address] Social History Tobacco Use Types Packs/Day Years [...] onset Afib who presents in transfer from [facility] with acute limb ischemia of the [...] emergently went to the OR for L DIRECTOR DIVERSITY transverse arteriotomy and primary repair, thromboembolectomy of L SFA/PFA/DIRECTOR DIVERSITY, reperfusion venous drainage for 250 cc, and [...] Discharge Condition: Good Discharge to: Home with [address] [address] Future Appointments and Orders Future Appointments and Orders Future Appointments Provider Department Dept Phone 05/23/2022 10:30 AM Loretta Cohen MD Dermatology at [facility] Arrive at: Limousine Rental Clerk [address] [place] [address] 06/07/2022 1:30 PM Gail Rae APRN Vascular Surgery at [facility] Arrive at: Limousine Rental Clerk Area [phone] 06/13/2022 7:30 AM Edson Lagos [place] Vascular Lab at [facility] Arrive at: Limousine Rental Clerk Area [phone] 06/13/2022 8:00 AM Fito Summers MD Vascular Surgery at [facility] Arrive at: Limousine Rental Clerk Area [phone] 06/13/2022 10:00 AM Alan Reid MD Cardiology at [facility] Arrive at: Limousine Rental Clerk Area [phone] Future Orders Complete By Expires Demetriusopatch 48 Hrs-15 Days [AFV4365 CPT(R)] 05/21/2022 11/20/2022 Process Instructions: Scheduling Instructions: Comments: Questions: Does the patient have a pacemaker? If yes provide HI/LO settings: Apply for 7 or 14 days?: 7 Where will study be performed?: [facility] Clinics JOSSELYN, legs, multiple levels [VAS8 Custom] 06/21/2022 (Approximate) 12/21/2022 Process Instructions: There is no in-house vascular wharf laborer available on weeknights (5pm-8am), weekends, or holidays. IF THIS IS A REQUEST FOR AN EMERGENT STUDY DURING THOSE HOURS, please have the senior provider responsible for the patient page the Vascular Surgery Fellow/Senior Resident ammonia print operator to discuss options. Scheduling Instructions: Questions: Indication for study/signs & symptoms: ALI s/p L fem cutdown with thromboembolectomy Question to be answered: Perfusion to feet? Please check toe pressure Preferred location?: [facility] Clinics Referral to [...] Home Health. [address] [facility] [address] (home) Date of : 1940 Inpatient DOCUMENTATION FOR VNA SERVICES (INCLUDING THOSE PATIENTS WITH MEDICARE COVERAGE REQUIRING HOME VNA SERVICES AND/OR HOSPICE SERVICES) PATIENT'S LOCATION: Koko Zamora [address] [facility] [phone] (home) Cell: No relevant phone numbers on file. Computer Game Tester's Name: Koko In discussion with the attending physician, it is certified that this patient is under their care and that they, or a Nurse Practitioner,Clinical Nurse specialist or Physician Box Toe Stitcher who is working directly with them, had [...] for managing ADL's. HOME HEALTH CARE AGENCY: [facility] [address] [place] [id number] Start of care: Within 24 to 48 [...] obtained from this patient'sPCP: Bobby Das MD [address] [place] [phone] All A agencies which cover the [...] For any problems or questions please call [phone] For issues on weeknights after 5pm and weekends please call [phone] and ask for the Vascular Fellow ammonia print operator. JOSEE Santiago Vascular Surgery 05/21/2022 documented in [...] For any problems or questions please call [phone] For issues on weeknights after 5pm and weekends please call [phone] and ask for the Vascular Fellow ammonia print operator. documented in this encounter Medications at Time [...] 04/12/20 21 (FLONASE) 50 mcg/actuation Nare route Clint, Suspension daily as needed. fluorouraciL (EFUDEX) 5 [...] onset Afib who presents in transfer from [facility] with acute limb ischemia of the [...] status, full code. JOSEE Santiago 05/21/2022 Pager: [phone] Brannon Isaacs, PT - 05/21/2022 10:35 AM [...] plan as stated. Time IN / OUT: 4440-5965 Total Minutes, Physical Therapy: 25 Billing Code: 2 BOSTON Isaacs DPT Pager: [phone] Physical Therapy Inpatient Rehabilitation Department Wellington Jean [...] Cardiac Care Unit [facility] Office Visit from 04/17/2021 in Pain and Spine Center at [facility] Weight 79.8 kg [...] and plan of care per Dr. Mcnamara (floor trader). 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 His [...] 04/17/2021 in Pain and Spine Center at [facility] Weight 79.8 kg [...] findings andplan of care per Dr. Mcnamara (floor trader). Please refer to her note above for [...] a mitral repair in 2000 (not at [facility]) with no CAD [...] AF and the first documented HR at [facility] was 125 bpm [...] onset Afib who presents in transfer from [facility] with acute limb ischemia of the [...] management following Dottie Hill APRN 05/20/2022 Pager: [phone] Laney Atkins RN - 05/20/2022 1:14 AM [...] 05/20/2022 1:09 AM EDT Pt. Transferred to [facility]. RN accompanied patient to floor and handed off to [facility] RN Dottie Hill APRN - 05/19/2022 10:02 AM EDT Vascular Surgery Progress Note Koko Zamora is a 81 y.o. male with w new onset Afib who presents in transfer from [facility] with acute limb ischemia of the LLE. ?? The patient had sudden pain starting at 630 05/15/22, he presented [facility] where he was placed on heparin. [...] management following Dottie Hill APRN 05/19/2022 Pager: [phone] Emily Greer RN - 05/19/2022 6:28 AM EDT OUTCOME EVALUATION NOTE: OUTCOME SUMMARY: Patient AOx4, VSS on RA. Afib on tele. HR controlled w/ PRN metop, given x2. Denies CP, SOB, n/v. See flowsheets for NVC. Dressings to LLE CDI, prevena [place] to groin intact. Voiding to urinal. LBM GLOBAL PRODUCT MANAGER, patient stating he will maybe try [...] adequately without difficulty to bedside urinal. LBM GLOBAL PRODUCT MANAGER. Up to chair this AM with nursing staff. Worked with PT, tolerated well. Diet changed to regular at 1800.Plan is for cardiac cath on Friday. PLAN MOVING FORWARD: Bleeding precautions Pain management neurovascular checks PT/OT lab animal technologist INDIVIDUALIZED FALL PREVENTION INTERVENTIONS: Patient-specific fall risk [...] onset Afib who presents in transfer from [facility] with acute limb ischemia of the [...] mL Intravenous BID ??? PHENobarbitaL 0.12 mg/kg/dose ([place]) Oral BID ??? thiamine 100 mg Oral [...] management following Dottie Hill APRN 05/18/2022 Pager: [phone] Brannon Isaacs, PT - 05/18/2022 10:00 AM [...] IR Biopsy Spine 07/20/2019 Bobby Marshall MD [facility] INTERVENTIONL RAD ??? IR VERTEBROPLASTY LUMBAR MULTIPLE LEVELS 07/20/2019 IR Vertebroplasty Lumbar Multiple Levels 07/20/2019 Bobby Marshall MD [facility] INTERVENTIONL RAD ??? IR VERTEBROPLASTY THORACIC SINGLE LEVEL 10/25/2020 IR Vertebroplasty Thoracic Single Level 10/25/2020 Matt Chisholm MD [facility] INTERVENTIONL RAD ??? PRO EMBLC/THRMBC FEMORAL POPLITEAL AORTO-ILIAC ARTERY Left 05/15/2022 EMBOLECTOMY OR THROMBECTOMY, FEMOROPOPLITEAL, AORTOILIAC ARTERY BY LEG INCISION (WRVU 19.48) performed by Fito Summers MD at [facility] MAIN OR Social History: Pt lives [...] in this evaluation. Time IN / OUT: 0482-4324 Total Minutes, Physical Therapy: 30 Billing Code: Basilio Isaacs, PT Pager: [phone] Physical Therapy Inpatient Rehabilitation Department Emily Sauceda RN - 05/18/2022 4:34 AM EDT OUTCOME EVALUATION NOTE: OUTCOME SUMMARY: Patient AOx4, VSS on 2LNC. Afib on tele. HR above 120, MD aware, PRN IV metop given x1, HR returned to 90's-low 100's. Denies CP, SOB, n/v. See flowsheets for NVC. Dressings to LLE CDI, prevena W[place] to groin intact. Voiding to urinal. LBM GLOBAL PRODUCT MANAGER. Heparin gtt therapeutic. Pain controlled. Patient [...] adequately without difficulty to bedside urinal. LBM GLOBAL PRODUCT MANAGER. Patient not OOB this shift. Currently NPO awaitingprocedure in lab rn. PLAN MOVING FORWARD: Bleeding precautions Pain management neurovascular checks PT/OT NPO for lab rn INDIVIDUALIZED FALL PREVENTION INTERVENTIONS: Patient-specific fall risk [...] the Emergency Department as a transfer from [facility] with left lower extremity limb ischemia. He went to [facility] and was startedon heparin and transferred to [facility] for evaluation by vascular surgery with [...] will will be going to the lab rn for evaluation. Will defer PT eval at present but will see as ordered post cardiac catheritizaton. Social Hx:Pt lives with his Ursula in [place], [place] in a 2 level home in [...] WBAT LLE LISBET HERMAN PT Pager # [phone] In-Pt Rehab Medicine Dottie Hill APRN - 05/17/2022 7:42 AM EDT Vascular Surgery Progress Note Koko Zamora is a 81 y.o. male with w new onset Afib who presents in transfer from [facility] with acute limb ischemia of the [...] mL Intravenous BID ??? PHENobarbitaL 0.24 mg/kg/dose ([place]) Oral BID Followed by ??? [START ON 05/18/2022] PHENobarbitaL 0.12 mg/kg/dose ([place]) Oral BID ??? thiamine 100 mg Oral [...] management following Dottie Hill APRN 05/17/2022 Pager: [phone] Sary Dos Santos, RN - 05/17/2022 12:16 [...] onset Afib who presents in transfer from [facility] with acute limb ischemia of the [...] mL Intravenous BID ??? PHENobarbitaL 0.48 mg/kg/dose ([place]) Oral BID Followed by ??? [START ON 05/17/2022] PHENobarbitaL 0.24 mg/kg/dose ([place]) Oral BID Followed by ??? [START ON 05/18/2022] PHENobarbitaL 0.12 mg/kg/dose ([place]) Oral BID ??? thiamine 100 mg Oral [...] management following Edward Rodríguez MD 05/16/2022 Pager: [phone] Sary Dos Santos RN - 05/16/2022 12:52 [...] 2129 Hand off to DION Ramirez 3 agency documented in this encounter H&P Notes Kerry [...] onset Afib who presents in transfer from [facility] with acute limb ischemia of the [...] IR Biopsy Spine 07/20/2019 Bobby Marshall MD [facility] INTERVENTIONL RAD ??? IR VERTEBROPLASTY LUMBAR MULTIPLE LEVELS 07/20/2019 IR Vertebroplasty Lumbar Multiple Levels 07/20/2019 Bobby Marshall MD [facility] INTERVENTIONL RAD ??? IR VERTEBROPLASTY THORACIC SINGLE LEVEL 10/25/2020 IR Vertebroplasty Thoracic Single Level 10/25/2020 Matt Chisholm MD [facility] INTERVENTIONL RAD Social Hx: Social History [...] Refill ??? fluticasone propionate (FLONASE) 50 mcg/actuation Clint, Suspension as needed. ??? fluorouraciL (EFUDEX) 5 [...] and consented. Tim Chicas MD 05/15/2022 Pager: [phone] documented in this encounter ED Notes Lc Harris PA - 05/15/2022 1:20 PM EDT ED Provider Note HPI: Koko Zamora is a 81 y.o. male with history of atrial fibrillation not on anticoagulation, and GI bleeding who presents to the Emergency Department as a transfer from [facility] with left lower extremity limb ischemia. Patient says that the symptoms started roughly 630 this morning when he developed severe pain in his left lower extremity. He went to [facility] and was started on heparin and transferred to [facility] for evaluation by vascular surgery. Review [...] lower extremity earlier today and went to [facility] where it was determined that he had ischemia of the left lower extremity. Vascular surgery [facility] was contacted and he was transferred [...] orders before pt. Arrival. Pt. Arrived at [facility] by EMS at [...] in an outpatient cardiac rehabilitation program at [facility] was discussed. Patient agrees to a referral to this program. Timing will depend on his recovery from Vascular surgery. He is going home w/VNA PT. I gave him the brochure for the program at [facility] for future reference. Care Management Discharge [...] information for follow-up Home Health & Hospice, [place] [address] [place] [address] Transportation: family or friend will provide Functional [...] Type: *No Product type* / Secondary Insurance: [facility] Prescription Coverage: Yes This plan was formulated with input from patient and team. All are in agreement with plan. IP RS has communicated with [place] - for initial IMM. RAlmita (Satish) DION López RN/CM - Cellphone: [phone] Pager: [phone] Covering Service RN/CM Plan of Care - [...] catheterization, transferred in hospital bed accompanied by Mobile Lounge Driver Or Operator RN, remains on telemetry monitoring. Heparin gtt [...] Type: *No Product type* / Secondary Insurance: [facility] Last Physical Therapy Recommendation: home with home health, home with supervision with None Last Occupational Therapy Recommendation: with Plan for discharge is: Home w/ Services Outpatient Agency/Support Group Needs: None Home Health Services: Registered Nurse, Physical Therapy, Occupational Therapy Agency Referrals: I have met with the patient to: ?? discuss discharge planning needs. ?? provide the [facility], Office of Care Management letter from the Cloth Stock Sorter pertaining to rehab referrals. ?? provide a letter describing our affiliations within the [facility] and educate about their right to choose where referrals are sent. ?? provide a list of Home Health Agencies / Durable Medical Equipment vendors which serve their preferred geographic area. ?? provided patient with [facility] Star Quality Rating handout. They have requested referrals to: [facility]. [address] [place] [address] Note routed to a Primary Class Teacher who will communicate referrals to facilities and provide any required information. Transportation: family or friend will provide Barriers to discharge: None Plan going forward: Patient is going for a cardiac cath today and plan will come from there. Patientwas recently seen by PT and they recommend VNA at time of discharge. [facility] was routed and pendedat this time. Care Management will continue to follow and assist with discharge planning and coordination of care as indicated. Anticipated Date of Discharge: 05/21/2022 Nataly RICHMOND RN Phone: [phone] Pager: [phone] Plan of Care - Laney Atkins RN [...] the original note were not included. [facility] [place] [address] INPATIENT CARDIOLOGY CONSULT NOTE Date of Consultation: 05/17/2022 Admit Date: 05/15/2022 Hospital Day 2 days Reason for Consult: New afib Active Problems: Active Hospital Problems Diagnosis Limb ischemia Resolved Hospital Problems No resolved problems to display. HPI: Koko Zamora is a 81 y.o. male with a PMHx significant for MVP (s/p MV repair 2000), tobacco use, HLD, who presented to [facility] from OSH on 05/15 with acute limb ischemia of LLE and was found to be in atrial fibrillation. Patient had sudden onset LLE pain on 05/15 and presented to [facility], where he was started on heparin and transferred to [facility] Upon arrival to [facility], patient was in [...] IR Biopsy Spine 07/20/2019 Bobby Marshall MD [facility] INTERVENTIONL RAD IR VERTEBROPLASTY LUMBAR MULTIPLE LEVELS 07/20/2019 IR Vertebroplasty Lumbar Multiple Levels 07/20/2019 Bobby Marshall MD [facility] INTERVENTIONL RAD IR VERTEBROPLASTY THORACIC SINGLE LEVEL 10/25/2020 IR Vertebroplasty Thoracic Single Level 10/25/2020 Matt Chisholm MD [facility] INTERVENTIONL RAD PRO EMBLC/THRMBC FEMORAL POPLITEAL AORTO-ILIAC ARTERY Left 05/15/2022 EMBOLECTOMY OR THROMBECTOMY, FEMOROPOPLITEAL, AORTOILIAC ARTERY BY LEG INCISION (WRVU 19.48) performed by Fito Summers MD at [facility] MAIN OR Allergies Allergen Reactions Aspirin Other (See Comments) GI bleed Out-Patient Medications: Medications Prior to Admission Medication Sig Dispense Refill Last Dose fluorouraciL (EFUDEX) 5 % Cream daily. CRESTOR 40 mg Tablet Take 40 mg by mouth daily. fluticasone propionate (FLONASE) 50 mcg/actuation Clint, Suspension as needed. ascorbic acid, vitamin C, [...] 5 mL Intravenous BID PHENobarbitaL 0.24 mg/kg/dose ([place]) Oral BID Followed by [START ON 05/18/2022] PHENobarbitaL 0.12 mg/kg/dose ([place]) Oral BID thiamine 100 mg Oral Daily folic acid 1,000 mcg Oral Daily multivitamin with minerals 1 tablet Oral Daily heparin (porcine) infusion 1,200 Units/hr (05/17/22 2223) Family History: No family history on file. [...] ED to Hosp-Admission (Current) from 05/15/[address] [place] [address] Office Visit from 04/17/2021 in Pain and Spine Center at [facility] Weight 79.8 kg [...] continue to follow Anne-Marie Larson MD Pager [phone] Clinic: [phone] 05/17/22 6:22 PM Initial Assessments - Ifrah [...] 180 days) Any patient receiving care at [facility] must abide by [place] law. The hierarchy [...] (i) The agent with financial power of trust and estates attorney or a conservator appointed in accordance [...] raised toilet seat Home Address confirmed as: [facility] [facility] [address] Social & Family Supports: All names listed below confirmed with patient as Incorrect. Will notify conifer to correct. Wifes address is same as and phone is [phone]. Extended Emergency Contact Information Primary Emergency Contact: Demarco Zamorana Address: [facility] [place] [address] [facility] Relation: Spouse Current Care [...] Type: *No Product type* / Secondary Insurance: [facility] Prescription Coverage: Yes Preferred Pharmacy: [id number] - [place], [place] - [address] [facility] [address] [place] [address] [id number] - [place], [place] - [address] [facility] [address] [facility] [address] [place] Status: Patient is a : unable to assess Primary Care Provider: Bobby Das MD [phone] Patient/Caregiver Goals of Treatment: to walk again Potential Needs for Transition of Care: none noted per 05/16 IDR Transportation: family will provide Transportation Anticipated: family or friend will provide Concerns to be Addressed: no discharge needs identified Assessment: Patient is admitted to vascular surg service for left lower extremity limb ischemia Plan: Per PT OT recommendations . Has used [employer] in the past. A member of the Care Management team will continue to monitor progress, follow for continuity of care and assist with transition of care planning. Ifrah Bell RN BSN Chief Revenue OfficerLead Mobile Developer of Care Management Pager [phone] Brief Op Note - Erin Garza MD - 05/15/2022 5:04 PM EDT Brief Operative Note Patient Name: Koko Zamoar : [id number] MR#: [id number] Case Date: 05/15/2022 Surgeon: Surgeon(s) and Role: [...] Garza MD - 05/15/2022 2:08 PM EDT [facility] Operative Note Patient Name: Koko Zamora : [id number] MR#: [id number] Case Date: 05/15/2022 Surgeon: Surgeon(s) and Role: [...] Negra Collins MD [facility] GASTROENTEROLOGY DEPT [place], [place] [address] (Wo rk) 09/05/2022 Appointment Cardiology Trinity Reid MD [facility] CARDIOLOGY [place], [place] 0[address] (Wo rk) 09/05/2022 Office Visit Cardiology Trinity Reid MD [facility] [place], [place] [address] (Wo rk) Scheduled Referrals Name [...] Component Value Ref Test Analysis Performed At [facility] Range Method Time Signature VB Text Department: Vascular Surgery Lab VASCUBASE Report Patient: [id number] (KOKO ZAMORA) CPT: 96049 Referring Physician: FITO SUMMERS ?? Phone: Indications: s/p L DIRECTOR DIVERSITY endart. Diabetes mellitus: no Findings: Right ?Pressure [...] P athologist Signature Heparin UFH 0.42 IU/mL [facility] LABORATORY Comment: Heparin (anti-Xa) levels [...] Organization Address City/State/[place] [address] Differential, Automated (05/21/2022 6:15 AM EDT) athologist Signature Neutrophils % 58.8 % [facility] LABORATORY Neutr Abs (ANC) 3.97 1.70 - [facility] 6.10 [facility] x10(3)[facility] LABORATORY Lymphocytes % 25.2 % [facility] Lymphocytes Abs 1.7 0.9 - 3.2 [facility] x10(3)/[facility] LABORATORY Monocytes % 12.9 % [facility] Monocyte Abs 0.9 0.3 - 0.9 [facility] x10(3)[facility] LABORATORY Eosinophils % 2.1 % [facility] LABORATORY Eosinophils Abs 0.1 0.0 - 0.4 [facility] x10(3)[facility] LABORATORY Basophils % 0.4 % [facility] LABORATORY Basophils Abs 0.0 0.0 - 0.1 [facility] x10(3)[facility] LABORATORY Immature Gran % 0.60 % [facility] LABORATORY Comment: Immature granulocytes(IG's)percentage an d absolute count will include metamyelocytes, myelocytes, and promyelo cytes. Blood smears from CBCs yielding IG's will be scanned manually for concor dance. If this scan disagrees with the automated IG or if promyelocytes are not ed, a manual differential will be performed. Rain Gran Abs 0.04 0.00 - 0.04 x10(3)/[facility] LABORATORY Specimen Anatomical Collection Method Collection Time Receive d Time (Source) Location / / Volume Laterality Blood 05/21/2022 6:15 AM 2 6:38 EDT AM EDT Resulting Agency Comment Spec In Lab Edward Rodríguez MD HEMATOLOGY ORDERABLES Performing Organization Address City/State/[place] [address] (ABNORMAL) Hemogram (05/21/2022 6:15 AM EDT) [facility] gist Method Time Signature WBC 6.8 4.0 - 9.5 [facility] LABORATORY RBC 3.59 (L) 4.58 - [facility] 5.54 [facility] x10(6)/[facility] LABORATORY Hemoglobin 11.8 (L) 13.7 - [facility] g/dL [facility] LABORATORY Hematocrit 34.5 (L) 40.5 - [facility] 48.5 % [facility] LABORATORY MCV 96.1 (H) 82.9 - [facility] 93.1 [facility] LABORATORY MCH 32.9 (H) 27.5 - [facility] 32.1 pg [facility] LABORATORY MCHC 34.2 32.0 - [facility] 35.7 g/dL [facility] LABORATORY Platelets 198 145 - 357 [facility] x10(3)/[facility] LABORATORY RDWSD 44.9 36.0 - [facility] 45.0 [facility] LABORATORY RDWCV 12.6 11.4 - [facility] 13.8 % [facility] LABORATORY MPV 10.0 7.6 - 12.9 [facility] LABORATORY nRBC % Auto 0.3 % [facility] LABORATORY nRBC Abs Auto 0.020 (H) 0.000 - [facility] 0.000 [facility] x10(3)/[facility] LABORATORY Specimen Anatomical Collection Method Collection Time Receive d Time (Source) Location / / Volume Laterality Blood 05/21/2022 6:15 AM 2 6:38 EDT AM EDT Resulting Agency Comment Spec In Lab Edward Rodríguez MD HEMATOLOGY ORDERABLES Performing Organization Address City/State/[place] [address] EKG 12 Lead (05/20/2022 7:04 PM EDT) Component Value Ref Range Test Analysis Performed Pathologis t Method Time At Signature Ventricular rate 101 BPM MUSE SYSTEM QRS Duration 116 ms MUSE SYSTEM Q-T Interval 378 ms MUSE SYSTEM QTC Calculated 490 ms MUSE SYSTEM (Bezet) Calculated R [place] -53 degrees MUSE SYSTEM Calculated T [place] 101 degrees MUSE SYSTEM INTERPRETATION Atrial fibrillation [...] SYSTEM - 05/20/2022 7:09 PM ED T ?[facility] ? Cardiac Cathete rization/Intervention Report ? Patient Name: ZamoraKoko ? Procedure Date: 05/20/2022 ? A #: [id number] ? Primary Physician: Abundio Servin ? Case #: [id number] ? File Name: [id number] ? Catheterization Order Number: [id number] ? [facility] ? Final Report [place], [place] ? Patient Name: ? Koko J. Klarissa uson ? ID#: ?[id number] ? : ?1940 ? Procedure Date: ? [...] was Urgent. The indication for ?the lab rn visit is cardiomyo nita. Chest pain symptom [...] ?3.5 guiding catheter and a 3.5 Fr [facility] [place] [address] ??20 Mhz. ??Imaging ?was successful. ??Image [...] premounted 2. 75 x 30 mm [place]y [place] (AMPARO) was deployed ? with a maximum [...] 123 65 - 199 [facility] mg/dL [facility] LABORATORY Comment: Supplemental ranges: <140 mg/dL before meals <180 mg/dL all other times of the day Specimen Anatomical Collection Method Collection Time Receive d Time (Source) Location / / Volume Laterality Blood 05/20/2022 5:42 PM 5:42 EDT PM EDT Fito Summers MD POINT OF CARE TEST ORDERABLE S Performing Organization Address City/State/[place] [address] (ABNORMAL) BMP w/fasting Glucose (05/20/2022 10:50 AM EDT) P athologist Signature Glucose 152 (H) 65 - 99 [facility] Fasting mg/dL [facility] LABORATORY Comment: [...] of Diabetes Mellitus, Position Statement from the [place] [employer]. ??Diabete s Care, Volume 33, Supplement 1, Nov 2009 BUN 11 10 - 20 mg/dL [facility] LABORATORY Creatinine 0.63 (L) 0.80 [...] estions. Chloride 103 98 - 107 mmol/L [facility] LABORATORY CO2 24 22 - 31 mmol/L [facility] LABORATORY Anion Gap 10 5 - 15 mmol/L [facility] LABORATORY Calcium 8.7 8.5 - 10.5 mg/dL [facility] LABORATORY Estimated GFR 97 >=60 mL/min/1.73 m?? [facility] LABORATORY Comment: This patient's [...] Organization Address City/State/[place] [address] Heparin (unfractionated) Level (05/20/2022 5:02 AM EDT) P athologist Signature Heparin UFH 0.57 IU/mL [facility] LABORATORY Comment: Heparin (anti-Xa) levels [...] Organization Address City/State/[place] [address] (ABNORMAL) Differential, Automated (05/20/2022 5:02 AM EDT) [facility] gist Method Time Signature Neutrophils % 58.1 % [facility] LABORATORY Neutr Abs (ANC) 4.52 1.70 - [facility] 6.10 [facility] x10(3)/[facility] LABORATORY Lymphocytes % 24.1 % [facility] LABORATORY Lymphocytes Abs 1.9 0.9 - 3.2 [facility] x10(3)/[facility] LABORATORY Monocytes % 13.8 % [facility] LABORATORY Monocyte Abs 1.1 (H) 0.3 - 0.9 [facility] x10(3)/[facility] LABORATORY Eosinophils % 2.6 % [facility] LABORATORY Eosinophils Abs 0.2 0.0 - 0.4 [facility] x10(3)/[facility] LABORATORY Basophils % 0.8 % [facility] LABORATORY Basophils Abs 0.1 0.0 - 0.1 [facility] x10(3)/[facility] LABORATORY Immature Gran % 0.60 % [facility] LABORATORY Comment: Immature granulocytes(IG's)percentage an d absolute count will include metamyelocytes, myelocytes, and promyelo cytes. Blood smears from CBCs yielding IG's will be scanned manually for tracy armstrong. If this scan disagrees with the automated IG or if promyelocytes are not ed, a manual differential will be performed. Rain Gran Abs 0.05 (H) 0.00 - 0.04 x10(3)/[facility] LABORATORY Specimen Anatomical Collection Method Collection Time Receive d Time (Source) Location / / Volume Laterality Blood 05/20/2022 5:02 AM 5:19 EDT AM EDT Resulting Agency Comment Spec In Lab Edward Rodríguez MD HEMATOLOGY ORDERABLES Performing Organization Address City/State/[place] [address] (ABNORMAL) Hemogram (05/20/2022 5:02 AM EDT) Analysis Performed At Patho logist Time Signature WBC 7.8 4.0 - 9.5 [facility] x10(3)/[facility] LABORATORY RBC 3.53 (L) 4.58 - [facility] 5.54 [facility] x10(6)/[facility] LABORATORY Hemoglobin 11.4 (L) 13.7 - [facility] 16.5 g/dL [facility] LABORATORY Hematocrit 34.3 (L) 40.5 - [facility] 48.5 % [facility] LABORATORY MCV 97.2 (H) 82.9 - [facility] 93.1 [facility] LABORATORY MCH 32.3 (H) 27.5 - [facility] 32.1 pg [facility] LABORATORY MCHC 33.2 32.0 - [facility] 35.7 g/dL [facility] LABORATORY Platelets 181 145 - 357 [facility] x10(3)/[facility] LABORATORY RDWSD 46.4 (H) 36.0 - [facility] 45.0 [facility] LABORATORY RDWCV 13.0 11.4 - [facility] 13.8 % [facility] LABORATORY MPV 10.4 7.6 - 12.9 [facility] LABORATORY nRBC % Auto 0.0 % [facility] LABORATORY nRBC Abs Auto 0.000 0.000 - [facility] 0.000 [facility] x10(3)/[facility] LABORATORY Specimen Anatomical Collection Method Collection Time Receive d Time (Source) Location / / Volume Laterality Blood 05/20/2022 5:02 AM 2 5:19 EDT AM EDT Resulting Agency Comment Spec In Lab Edward Rodríguez MD HEMATOLOGY ORDERABLES Performing Organization Address City/[facility]/[place] [address] [facility] LABORATORY Drive Heparin (unfractionated) Level (05/19/2022 3:26 AM EDT) P athologist Signature Heparin UFH 0.59 IU/mL [facility] LABORATORY Comment: Heparin (anti-Xa) levels [...] Summers MD HEMATOLOGY ORDERABLES Performing Organization Address City/[facility]/[place] [address] (ABNORMAL) Differential, Automated (05/19/2022 3:26 AM EDT) Patholo gist Method Time Signature Neutrophils % 62.1 % [facility] LABORATORY Neutr Abs (ANC) 4.59 1.70 - [facility] 6.10 [facility] x10(3)/[facility] LABORATORY Lymphocytes % 22.1 % [facility] LABORATORY Lymphocytes Abs 1.6 0.9 - 3.2 [facility] x10(3)/[facility] LABORATORY Monocytes % 13.5 % [facility] LABORATORY Monocyte Abs 1.0 (H) 0.3 - 0.9 [facility] x10(3)/[facility] LABORATORY Eosinophils % 1.3 % [facility] LABORATORY Eosinophils Abs 0.1 0.0 - 0.4 [facility] x10(3)/[facility] LABORATORY Basophils % 0.5 % [facility] LABORATORY Basophils Abs 0.0 0.0 - 0.1 [facility] x10(3)/[facility] LABORATORY Immature Gran % 0.50 % [facility] LABORATORY Comment: Immature granulocytes(IG's)percentage an d absolute count will include metamyelocytes, myelocytes, and promyelo cytes. Blood smears from CBCs yielding IG's will be scanned manually for concor dance. If this scan disagrees with the automated IG or if promyelocytes are not ed, a manual differential will be performed. Rain Gran Abs 0.04 0.00 - 0.04 x10(3)/[facility] LABORATORY Specimen Anatomical Collection Method Collection Time Receive d Time (Source) Location / / Volume Laterality Blood 05/19/2022 3:26 AM 2 3:59 EDT AM EDT Resulting Agency Comment Spec In Lab Edward Rodríguez MD HEMATOLOGY ORDERABLES Performing Organization Address City/State/[place] [address] (ABNORMAL) Hemogram (05/19/2022 3:26 AM EDT) Analysis Performed At Patho logist Time Signature WBC 7.4 4.0 - 9.5 [facility] x10(3)/[facility] LABORATORY RBC 3.74 (L) 4.58 - [facility] 5.54 [facility] x10(6)/[facility] LABORATORY Hemoglobin 12.1 (L) 13.7 - [facility] 16.5 g/dL [facility] LABORATORY Hematocrit 36.4 (L) 40.5 - [facility] 48.5 % [facility] LABORATORY MCV 97.3 (H) 82.9 - [facility] 93.1 [facility] LABORATORY MCH 32.4 (H) 27.5 - [facility] 32.1 pg [facility] LABORATORY MCHC 33.2 32.0 - [facility]LL[facility] 35.7 g/dL [facility] LABORATORY Platelets 168 145 - 357 [facility] x10(3)/[facility] LABORATORY RDWSD 46.9 (H) 36.0 - [facility] HAGEN 45.0 [facility] LABORATORY RDWCV 13.0 11.4 - [facility] HAG[facility] 13.8 % [facility] LABORATORY MPV 10.5 7.6 - 12.9 [facility] LABORATORY nRBC % Auto 0.0 % [facility] LABORATORY nRBC Abs Auto 0.000 0.000 - [facility] 0.000 [facility] x10(3)/[facility] LABORATORY Specimen Anatomical Collection Method Collection Time Receive d Time (Source) Location / / Volume Laterality Blood 05/19/2022 3:26 AM 2 3:59 EDT AM EDT Resulting Agency Comment Spec In Lab Edward Rodríguez MD HEMATOLOGY ORDERABLES Performing Organization Address City/State/Z[place] [address] TSH (05/18/2022 8:00 PM EDT) P athologist Signature TSH 2.27 0.27 - 4.20 [facility] mcIU/mL [facility] LABORATORY Comment: Reference Interval (mcIU/mL): Females: ??First Trimester: 0.23-3.88 ??Second Trimester: 0.22-3.90 ??Third Trimester: 0.44-4.66 Specimen Anatomical Collection Method Collection Time Receive d Time (Source) Location / / Volume Laterality Blood 05/18/2022 8:00 PM 2 8:06 EDT PM EDT Resulting Agency Comment Spec In Lab Fito Summers MD CHEMISTRY ORDERABLES Performing Organization Address City/State/[place] [address] (ABNORMAL) Differential, Automated (05/18/2022 3:34 AM EDT) [facility] Method Time Signature Neutrophils % 67.2 % [facility] LABORATORY Neutr Abs (ANC) 5.89 1.70 - [facility] 6.10 [facility] x10(3)/[facility] LABORATORY Lymphocytes % 17.1 % [facility] LABORATORY Lymphocytes Abs 1.5 0.9 - 3.2 [facility] x10(3)/[facility] LABORATORY Monocytes % 13.6 % [facility] LABORATORY Monocyte Abs 1.2 (H) 0.3 - 0.9 [facility] x10(3)/[facility] LABORATORY Eosinophils % 1.0 % [facility] LABORATORY Eosinophils Abs 0.1 0.0 - 0.4 [facility] x10(3)/[facility] LABORATORY Basophils % 0.6 % [facility] LABORATORY Basophils Abs 0.0 0.0 - 0.1 [facility] x10(3)/[facility] LABORATORY Immature Gran % 0.50 % [facility] LABORATORY Comment: Immature granulocytes(IG's)percentage an d absolute count will include metamyelocytes, myelocytes, and promyelo cytes. Blood smears from CBCs yielding IG's will be scanned manually for concor dance. If this scan disagrees with the automated IG or if promyelocytes are not ed, a manual differential will be performed. Rain Gran Abs 0.04 0.00 - 0.04 x10(3)/[facility] LABORATORY Specimen Anatomical Collection Method Collection Time Receive d Time (Source) Location / / Volume Laterality Blood 05/18/2022 3:34 AM 3:48 EDT AM EDT Resulting Agency Comment Spec In Lab Edward Rodríguez MD HEMATOLOGY ORDERABLES Performing Organization Address City/State/[place] [address] (ABNORMAL) Hemogram (05/18/2022 3:34 AM EDT) Analysis Performed At [facility] logist Time Signature WBC 8.8 4.0 - 9.5 [facility] x10(3)/[facility] LABORATORY RBC 3.45 (L) 4.58 - [facility] 5.54 [facility] x10(6)/[facility] LABORATORY Hemoglobin 11.2 (L) 13.7 - [facility] 16.[facility] g/dL [facility] LABORATORY Hematocrit 33.0 (L) 40.5 - [facility] 48.5 % [facility] LABORATORY MCV 95.7 (H) 82.9 - [facility] 93.1 [facility] LABORATORY MCH 32.5 (H) 27.5 - [facility] 32.1 pg [facility] LABORATORY MCHC 33.9 32.0 - [facility] 35.7 g/dL [facility] LABORATORY Platelets 130 (L) 145 - 357 [facility] x10(3)/[facility] LABORATORY RDWSD 46.2 (H) 36.0 - [facility] [facility] RDWCV 13.2 11.4 - [facility] 13.8 % [facility] LABORATORY MPV 10.8 7.6 - 12.9 [facility] LABORATORY nRBC % Auto 0.0 % [facility] LABORATORY nRBC Abs Auto 0.000 0.000 - [facility] 0.000 [facility] x10(3)/[facility] LABORATORY Specimen Anatomical Collection Method Collection Time Receive d Time (Source) Location / / Volume Laterality Blood 05/18/2022 3:34 AM 3:48 EDT AM EDT Resulting Agency Comment Spec In Lab Edward Rodríguez MD HEMATOLOGY ORDERABLES Performing Organization Address City/State/[place] [address] Heparin (unfractionated) Level (05/18/2022 3:34 AM EDT) P athologist Signature Heparin UFH 0.59 IU/mL [facility] LABORATORY Comment: Heparin (anti-Xa) levels [...] Summers MD HEMATOLOGY ORDERABLES Performing Organization Address City/[facility]/ZIP Code Phon e Number [address] Magnesium (05/17/2022 3:33 AM EDT) athologist Signature Magnesium 0.76 0.69 - 1.07 [facility] mmol/L [facility] LABORATORY Specimen Anatomical Collection Method Collection Time Receive d Time (Source) Location / / Volume Laterality Blood Venous Draw / 05/17/2022 3:33 AM 05/17/20 4:05 Unknown EDT AM EDT Resulting Agency Comment Spec In Lab Dottie Hill APRN CHEMISTRY ORDERABLES Performing Organization Address City/[facility]/ZIP [place] [address] (ABNORMAL) Basic Metabolic Panel (non-fasting) (05/17/2022 3:33 AM EDT) P athologist Signature Glucose Lvl 158 65 - 199 [facility] mg/dL [facility] LABORATORY Comment: Diabetes: >=200 mg/dL plus symp toms BUN 12 10 - 20 mg/dL [facility] LABORATORY Creatinine 0.74 (L) 0.80 [...] estions. Chloride 102 98 - 107 mmol/L [facility] LABORATORY CO2 25 22 - 31 mmol/L [facility] LABORATORY Anion Gap 10 5 - 15 mmol/L [facility] LABORATORY Calcium 8.4 (L) 8.5 - 10.5 mg/dL [facility] LABORATORY Estimated GFR 92 >=60 mL/min/1.73 m?? [facility] LABORATORY Comment: This patient's [...] Organization Address City/State/[place] [address] (ABNORMAL) Differential, Automated (05/17/2022 3:33 AM EDT) [facility] gist Method Time Signature Neutrophils % 65.5 % [facility] LABORATORY Neutr Abs (ANC) 6.84 (H) 1.70 - [facility] 6.10 [facility] x10(3)/[facility] LABORATORY Lymphocytes % 19.7 % [facility] LABORATORY Lymphocytes Abs 2.1 0.9 - 3.2 [facility] x10(3)/[facility] LABORATORY Monocytes % 13.1 % [facility] LABORATORY Monocyte Abs 1.4 (H) 0.3 - 0.9 [facility] x10(3)/[facility] LABORATORY Eosinophils % 0.6 % [facility] LABORATORY Eosinophils Abs 0.1 0.0 - 0.4 [facility] x10(3)/[facility] LABORATORY Basophils % 0.6 % [facility] LABORATORY Basophils Abs 0.1 0.0 - 0.1 [facility] x10(3)/[facility] LABORATORY Immature Gran % 0.50 % [facility] LABORATORY Comment: Immature granulocytes(IG's)percentage an d absolute count will include metamyelocytes, myelocytes, and promyelo cytes. Blood smears from CBCs yielding IG's will be scanned manually for concor dance. If this scan disagrees with the automated IG or if promyelocytes are not ed, a manual differential will be performed. Rain Gran Abs 0.05 (H) 0.00 - 0.04 x10(3)/[facility] LABORATORY Specimen Anatomical Collection Method Collection Time Receive d Time (Source) Location / / Volume Laterality Blood 05/17/2022 3:33 AM 3:53 EDT AM EDT Resulting Agency Comment Spec In Lab Edward Rodríguez MD HEMATOLOGY ORDERABLES Performing Organization Address City/State/[place] [address] (ABNORMAL) Hemogram (05/17/2022 3:33 AM EDT) Analysis Performed At Patho logist Time Signature WBC 10.4 (H) 4.0 - 9.5 [facility] x10(3)/[facility] LABORATORY RBC 3.72 (L) 4.58 - [facility] 5.54 [facility] x10(6)/[facility] LABORATORY Hemoglobin 12.0 (L) 13.7 - [facility] 16.5 g/dL [facility] LABORATORY Hematocrit 36.4 (L) 40.5 - [facility] 48.5 % [facility] LABORATORY MCV 97.8 (H) 82.9 - [facility] 93.1 [facility] LABORATORY MCH 32.3 (H) 27.5 - [facility] 32.1 pg [facility] LABORATORY MCHC 33.0 32.0 - [facility] POWE[facility]CK 35.7 g/dL [facility] LABORATORY Platelets 149 145 - 357 [facility] x10(3)/[facility] LABORATORY RDWSD 48.7 (H) 36.0 - [facility] FAYE 45.0 [facility] LABORATORY RDWCV 13.5 11.4 - [facility] 13.8 % [facility] LABORATORY MPV 10.6 7.6 - 12.9 [facility] [facility] LABORATORY nRBC % Auto 0.0 % [facility] LABORATORY nRBC Abs Auto 0.000 0.000 - [facility] 0.000 [facility] x10(3)/[facility] LABORATORY Specimen Anatomical Collection Method Collection Time Receive d Time (Source) Location / / Volume Laterality Blood 05/17/2022 3:33 AM 3:53 EDT AM EDT Resulting Agency Comment Spec In Lab Edward Rodríguez MD HEMATOLOGY ORDERABLES Performing Organization Address City/State/[place] [address] (ABNORMAL) Urinalysis Microscopic Exam (05/16/2022 11:15 PM EDT) P athologist Signature RBC UA 8 (H) 0 - 3 /HPF [facility] LABORATORY WBC UA 2 0 - 3 /HPF [facility] LABORATORY Specimen Anatomical Collection Method Collection Time Receive d Time (Source) Location / / Volume Laterality Clean Catch 05/16/2022 11:15 05/16/2022 Urine PM EDT 11:30 PM EDT Resulting Agency Comment Spec In Lab Barbie Ashraf MD URINE ORDERABLES Performing Organization Address City/State/[place] [address] (ABNORMAL) Urinalysis with reflex Culture (05/16/2022 11:15 PM EDT) Patholo gist Method Time Signature Glucose UA Negative Negative [facility] mg/dL [facility] LABORATORY Protein UA Negative Negative [facility] LABORATORY Bilirubin UA Negative Negative [facility] mg/dL [facility] LABORATORY Comment: Clinical correlation required for positi ve Urine Bilirubin results as false positive may occur with some drugs and d rug related products. If a false positive is suspected a serum total bili quarles should be considered if clinically indicated. Urobilinogen UA Normal Normal mg/dL [facility] LABORATORY pH UA 6.0 5.0 - 8.0 [facility] LABORATORY Blood UA Small (A) Negative mg/dL [facility] LABORATORY Ketones UA Trace (A) Negative mg/dL [facility] LABORATORY Nitrite UA Negative Negative [facility] LABORATORY Leukocytes UA Negative Negative [facility] LABORATORY Appearance UA Clear Clear [facility] LABORATORY Spec [place] UA 1.021 1.005 - 1.030 [facility] LABORATORY Color UA Yellow Yellow [facility] LABORATORY Culture Reflexed No [facility] LABORATORY Specimen Anatomical Collection Method Collection Time Receive d Time (Source) Location / / Volume Laterality Clean Catch 05/16/2022 11:15 05/16/2022 Urine PM EDT 11:30 PM EDT Resulting Agency Comment Spec In Lab Fito Summers MD URINE ORDERABLES Performing Organization Address City/State/[place] [address] Heparin (unfractionated) Level (05/16/2022 10:59 PM EDT) P athologist Signature Heparin UFH 0.65 IU/mL [facility] LABORATORY Comment: Specimen drawn more [...] Organization Address City/State/ZIP Code Phon e Number [place] [id number] HOSPITAL LAB[address]ORY Drive XR Chest One View [...] who have questions please contact the health daycare teacher that requested your imaging first. ? Narrative [...] ho have questions please contact the health daycare teacher that requested your imaging first. Electronically signed by: Tiffanie George MD , [facility] ([phone]), at 05/16/2022 9:27 PM Fito Summers MD IMG DX ORDERABLES EKG 12 Lead (05/16/2022 8:57 PM EDT) Component Value Ref Range Test Analysis Performed Pathologis t Method Time At Signature Ventricular rate 117 BPM MUSE SYSTEM QRS Duration 112 ms MUSE SYSTEM Q-T Interval 346 ms MUSE SYSTEM QTC Calculated 482 ms MUSE SYSTEM (Bezet) Calculated R R[place] -48 degrees MUSE SYSTEM Calculated T [place] 111 degrees MUSE SYSTEM INTERPRETATION Atrial fibrillation with rapid ventricular response MUSE SYSTEM Left anterior fascicular block Minimal voltage criteria for LVH, may be normal variant ( Arimo product ) Nonspecific ST and T wave [...] EDT) athologist Signature Heparin UFH 0.53 IU/mL [facility] LABORATORY Comment: Heparin (anti-Xa) levels [...] Organization Address City/State/ZIP Code Phon e Number [place] [id number] HOSPITAL LAB[address]ORY Drive ECHOCARDIOGRAM COMPLETE W CONTRAST (05/16/2022 12:49 PM EDT) athologist Signature EF 28 [facility] Specimen (Source) Anatomical Collection Method Collection Time Re ceived Time Location / / Volume Laterality 05/16/2022 11:22 AM EDT Narrative [facility] - 05/16/2022 1:54 PM EDT [facility] ?[address] ? [place] [address] ?Voice: ?Fax: ? Echocardiogram Report Name: KOKO ZAMORA ?Study Date: 05/16/2022 11:22 AM ? Patient Location: 3WST 0303 B : 1940 ? Height: 67.5 in ? Account: [id number] Age: 81 yrs ? Weight: 176 lb Gender: Male ?BSA: 1.9 m2 Ordering Physician: FITO SUMMERS Referring Physician: MALI FLORIAN Performed By: Jolene Bernard LOLLY Exam Location: [facility]. Interpretation Summary Left ventricle is [...] and LV systolic dysfunction are new. Procedure Complete-[id number]. Image enhancement Optiso n was used for [...] note might be different from the original. [place] [address] [place] [address] Voice: Fax: Echocardiogram Report Name: KOKO ZAMORA Study Date: 05/2022 11:22 AM Patient Location: [facility] 0 303 B : 1940 Height: 67.5 in Account: [id number] Age: 81 yrs Weight: 176 lb Gender: Male BSA: 1.9 m2 Ordering Physician: FITO SUMMERS Referring Physician: MALI FLORIAN Performed By: Jolene Bernard RDCS Exam Location: [facility]. Interpretation Summary Left ventricle is [...] and LV systolic dysfunction are new. Procedure Complete-[id number]. Image enhancement Optiso n was used for [...] (ABNORMAL) Differential, Automated (05/16/2022 3:01 AM EDT) [facility] gist Method Time Signature Neutrophils % 78.8 % [facility] LABORATORY Neutr Abs (ANC) 9.11 (H) 1.70 - [facility] 6.10 [facility] x10(3)/[facility] LABORATORY Lymphocytes % 9.4 % [facility] LABORATORY Lymphocytes Abs 1.1 0.9 - 3.2 [facility] x10(3)/[facility] LABORATORY Monocytes % 10.9 % [facility] LABORATORY Monocyte Abs 1.3 (H) 0.3 - 0.9 [facility] x10(3)/[facility] LABORATORY Eosinophils % 0.0 % [facility] LABORATORY Eosinophils Abs 0.0 0.0 - 0.4 [facility] x10(3)/[facility] LABORATORY Basophils % 0.3 % [facility] LABORATORY Basophils Abs 0.0 0.0 - 0.1 [facility] x10(3)/[facility] LABORATORY Immature Gran % 0.60 % [facility] LABORATORY Comment: Immature granulocytes(IG's)percentage an d absolute count will include metamyelocytes, myelocytes, and promyelo cytes. Blood smears from CBCs yielding IG's will be scanned manually for concor danlara. If this scan disagrees with the automated IG or if promyelocytes are not ed, a manual differential will be performed. Rain Gran Abs 0.07 (H) 0.00 - 0.04 x10(3)/[facility] LABORATORY Specimen Anatomical Collection Method Collection Time Receive d Time (Source) Location / / Volume Laterality Blood 05/16/2022 3:01 AM 3:36 EDT AM EDT Resulting Agency Comment Spec In Lab Erin Garza MD HEMATOLOGY ORDERABLES Performing Organization Address City/State/[place] [address] (ABNORMAL) Hemogram (05/16/2022 3:01 AM EDT) Analysis Performed At Patho logist Time Signature WBC 11.6 (H) 4.0 - 9.5 [facility] x[facility](3[facility] LABORATORY RBC 3.62 (L) 4.58 - [facility] 5.54 [facility] x10(6)/[facility] LABORATORY Hemoglobin 12.0 (L) 13.7 - [facility] 16.5 g/dL [facility] LABORATORY Hematocrit 35.3 (L) 40.5 - [facility] 48.5 % [facility] LABORATORY MCV 97.5 (H) 82.9 - [facility] 93.1 [facility] LABORATORY MCH 33.1 (H) 27.5 - [facility] 32.1 pg [facility] LABORATORY MCHC 34.0 32.0 - [facility] 35.7 g/dL [facility] LABORATORY Platelets 151 145 - 357 [facility] x10(3)/[facility] LABORATORY RDWSD 47.6 (H) 36.0 - [facility] 45.0 [facility] LABORATORY RDWCV 13.3 11.4 - [facility] 13.8 % [facility] LABORATORY MPV 10.5 7.6 - 12.9 [facility] LABORATORY nRBC % Auto 0.0 % [facility] LABORATORY nRBC Abs Auto 0.000 0.000 - [facility] 0.000 [facility] x10(3)/[facility] LABORATORY Specimen Anatomical Collection Method Collection Time Receive d Time (Source) Location / / Volume Laterality Blood 05/16/2022 3:01 AM 2 3:36 EDT AM EDT Resulting Agency Comment Spec In Lab Erin Garza MD HEMATOLOGY ORDERABLES Performing Organization Address City/State/ZIP Code Phon e Number [address] Phosphorus (05/16/2022 3:01 AM EDT) athologist Signature Phosphorus 3.7 2.5 - 4.5 [facility] mg/dL [facility] LABORATORY Specimen Anatomical Collection Method Collection Time Receive d Time (Source) Location / / Volume Laterality Blood 05/16/2022 3:01 AM 2 3:36 EDT AM EDT Resulting Agency Comment Spec In Lab Fito Summers MD CHEMISTRY ORDERABLES Performing Organization Address City/[facility]/ZIP Code Phon e Number [address] Magnesium (05/16/2022 3:01 AM EDT) athologist Signature Magnesium 0.77 0.69 - 1.07 [facility] mmol/L [facility] LABORATORY Specimen Anatomical Collection Method Collection Time Receive d Time (Source) Location / / Volume Laterality Blood 05/16/2022 3:01 AM 2 3:36 EDT AM EDT Resulting Agency Comment Spec In Lab Fito Summers MD CHEMISTRY ORDERABLES Performing Organization Address City/[facility]/ZIP [place] [address] (ABNORMAL) Basic Metabolic Panel (non-fasting) (05/16/2022 3:01 AM EDT) athologist Signature Glucose Lvl 222 (H) 65 - 199 [facility] mg/dL [facility] LABORATORY Comment: [...] Chloride 108 (H) 98 - 107 mmol/L [facility] LABORATORY CO2 22 22 - 31 mmol/L [facility] LABORATORY Anion Gap 8 5 - 15 mmol/L [facility] LABORATORY Calcium 8.2 (L) 8.5 - 10.5 mg/dL [facility] LABORATORY Estimated GFR 95 >=60 mL/min/1.73 m?? [facility] LABORATORY Comment: This patient's [...] Organization Address City/State/[place] [address] (ABNORMAL) BLOOD GAS 2 ARTERIAL (05/15/2022 3:33 PM EDT) Analysis Performed At Patho logist Time Signature pH Art 7.33 (L) 7.35 - [facility] 7.45 [facility] LABORATORY pCO2 Art 41 35 - 45 [facility] LABORATORY pO2 Art 131 (H) 85 - 104 [facility] LABORATORY HCO3 Art 21.1 20.0 - [facility] 26.0 [facility] mmol/L [facility] LABORATORY BE Art -4.8 (L) -3.0 - 3.0 [facility] mmol/L [facility] LABORATORY Hgb Blood Gas 13.4 (L) 13.7 - [facility] 16.5 g/dL [facility] O2HB Art 96.9 94.0 - [facility] 97.0 % [facility] LABORATORY COHB Art 1.4 % [facility] LABORATORY Comment: Nonsmokers: 0.5-1.5% COHB Smokers: Variable, but usually less than 10% Toxic: 20-30% COHB Lethal: Greater than 60% COHB METHB Art 0.3 <=1.5 % [facility] LABORATORY Na Whole Blood 139 135 - 145 mmol/L [facility] LABORATORY K Whole Blood 3.8 3.5 - 5.0 mmol/L [facility] LABORATORY Comment: Please note: Patients with WBC >100,000 may have falsely elevated Potassium levels. Contact the Clinical Chemistry L aboratory if there are any questions. ICa Whole Blood 1.32 1.15 - 1.33 mmol/L [facility] LABORATORY Comment: Note: ??Total bilirubin higher than 20 m g/dL may lead to falsely low ionized calcium. CL Whole Blood 113 (H) 98 - 107 mmol/L [facility] LABORATORY Gluc Whole Bld 136 65 - 199 mg/dL [facility] LABORATORY Comment: Diabetes: >=200 mg/dL plus symp toms. Lactate WB 2.0 0.5 - 2.2 mmol/L [facility] LABORATORY Specimen Anatomical Collection Method Collection Time Receive d Time (Source) Location / / Volume Laterality Blood 05/15/2022 3:33 PM 3:[address] Jamel Torre MD CHEMISTRY ORDERABLES Performing Organization Address City/State/ZIP Code Phon e Number [facility] [place] [address] (ABNORMAL) BLOOD GAS 2 ARTERIAL (05/15/2022 2:06 PM EDT) Analysis Performed At Patho logist Time Signature pH Art 7.39 7.35 - [facility] 7.45 [facility] LABORATORY pCO2 Art 35 35 - 45 [facility] mmHg [facility] LABORATORY pO2 Art 135 (H) 85 - 104 [facility] mmHg [facility] LABORATORY HCO3 Art 20.8 20.0 - [facility] 26.0 [facility] mmol/L [facility] LABORATORY BE Art -4.2 (L) -3.0 - 3.0 [facility] mmol/L [facility] LABORATORY Hgb Blood Gas 14.5 13.7 - [facility] 16.5 g/dL [facility] O2HB Art 97.2 (H) 94.0 - [facility] 97.0 % [facility] LABORATORY COHB Art 1.2 % [facility] LABORATORY Comment: Nonsmokers: 0.5-1.5% COHB Smokers: Variable, but usually less than 10% Toxic: 20-30% COHB Lethal: Greater than 60% COHB METHB Art 0.3 <=1.5 % [facility] LABORATORY Na Whole Blood 140 135 - 145 mmol/L [facility] LABORATORY K Whole Blood 3.8 3.5 - 5.0 mmol/L [facility] LABORATORY Comment: Please note: Patients with WBC >100,000 may have falsely elevated Potassium levels. Contact the Clinical Chemistry L aboratory if there are any questions. ICa Whole Blood 1.12 (L) 1.15 - 1.33 mmol/L [facility] LABORATORY Comment: Note: ??Total bilirubin higher than 20 m g/dL may lead to falsely low ionized calcium. CL Whole Blood 109 (H) 98 - 107 mmol/L [facility] LABORATORY Gluc Whole Bld 152 65 - 199 mg/dL [facility] LABORATORY Comment: Diabetes: >=200 mg/dL plus symp toms. Lactate WB 1.5 0.5 - 2.2 mmol/L [facility] LABORATORY Specimen Anatomical Collection Method Collection Time Receive d Time (Source) Location / / Volume Laterality Blood 05/15/2022 2:06 PM 2:[address] Jamel Torre MD CHEMISTRY ORDERABLES Performing Organization Address City/State/[place] [address] (ABNORMAL) Prothrombin Time (05/15/2022 12:30 PM EDT) athologist Signature PT 12.9 (H) 9.4 - 12.5 [facility] LABORATORY INR 1.1 [facility] LABORATORY Comment: An INR [...] d Time (Source) Location / / Volume [facility] Blood 05/15/2022 12:30 05/15/2022 1:00 PM EDT PM EDT Resulting Agency Comment Spec In Lab Jhonny Morales DO HEMATOLOGY ORDERABLES Performing Organization Address City/State/[place] [address] (ABNORMAL) APTT (05/15/2022 12:30 PM EDT) athologist Signature PTT 76 (H) 25 - 37 sec [facility] LABORATORY Comment: The PTT is NOT appropriate for heparin m onitoring. Use the Anti-Xa level for heparin monitoring (HEP UFH) or LMWH mon itoring (HEP LMW). A PTT less than 37 seconds generally indicates adequate hem ostasis. Specimen Anatomical Collection Method Collection Time Receive d Time (Source) Location / / Volume [facility] Blood 05/15/2022 12:30 05/15/2022 1:00 PM EDT PM EDT Resulting Agency Comment Spec In Lab Jhonny Morales DO HEMATOLOGY ORDERABLES Performing Organization Address City/State/[place] [address] Gold Tube HOLD (05/15/2022 12:20 PM EDT) P athologist Signature Gold Hold Sample in [facility]. [facility] LABORATORY Specimen Anatomical Collection Method Collection Time Receive d Time (Source) Location / / Volume Laterality Blood No Charge / 05/15/2022 12:20 05/15/2022 Unknown PM EDT 12:20 PM EDT Lc TRIPP CHEMISTRY ORDERABLES Performing Organization Address City/State/ZIP Code Phon e Number [address] Type and Screen Validity (05/15/2022 12:00 PM EDT) [facility] Method Time Signature T&S only valid [facility] at [facility] LABORATORY Comment: This Type and Screen result is only valid at the [facility] Specimen Anatomical Collection Method Collection Time Receive d Time (Source) Location / / Volume Laterality Blood 05/15/2022 12:00 05/15/2022 PM EDT 12:17 PM EDT Resulting Agency Comment Spec In Lab Lc TRIPP BLOOD BANK ORDERABLES Performing Organization Address City/State/ZIP Code Phon e Number [address] ABORH Recheck Status (05/15/2022 12:00 PM EDT) [facility] Method Time Signature ABORH Recheck Order Placed [facility] K Order [facility] LABORATORY ABORH Type Complete [facility] LABORATORY Specimen Anatomical Collection Method Collection Time Receive d Time (Source) Location / / Volume Laterality Blood 05/15/2022 12:00 05/15/2022 PM EDT 12:17 PM EDT Resulting Agency Comment Spec In Lab Lc TRIPP BLOOD BANK ORDERABLES Performing Organization Address City/State/ZIP Code Phon e Number [address] CK (05/15/2022 12:00 PM EDT) P athologist Signature CK, Total 87 0 - 200 [facility] unit/L [facility] LABORATORY Specimen Anatomical Collection Method Collection Time Receive d Time (Source) Location / / Volume Laterality Blood Venous Draw / 05/15/2022 12:00 05/15/2022 Unknown PM EDT 12:19 PM EDT Resulting Agency Comment Spec In Lab Fito Summers MD CHEMISTRY ORDERABLES Performing Organization Address City/[facility]/[place] [address] Antibody screen (05/15/2022 12:00 PM EDT) [facility] Method Time Signature Ab Screen Negative [facility] LABORATORY Expires at 05/18/2022 [facility] [id number] on: [facility] LABORATORY Specimen Anatomical Collection Method Collection Time Receive d Time (Source) Location / / Volume Laterality Blood 05/15/2022 12:00 05/15/2022 PM EDT 12:17 PM EDT Resulting Agency Comment Spec In Lab Lc TRIPP BLOOD BANK ORDERABLES Performing Organization Address City/[facility]/Z[place] [address] ABO/Rh Typing (05/15/2022 12:00 PM EDT) P athologist Signature ABORh Type O Pos [facility] LABORATORY Specimen Anatomical Collection Method Collection Time Receive d Time (Source) Location / / Volume Laterality Blood 05/15/2022 12:00 05/15/2022 PM EDT 12:17 PM EDT Resulting Agency Comment Spec In Lab Lc TRIPP BLOOD BANK ORDERABLES Performing Organization Address City/[facility]/Z[place] [address] (ABNORMAL) Differential, Automated (05/15/2022 12:00 PM EDT) [facility] Method Time Signature Neutrophils % 79.4 % [facility] LABORATORY Neutr Abs (ANC) 7.49 (H) 1.70 - [facility] 6.10 [facility] x10(3)/[facility] L LABORATORY Lymphocytes % 11.3 % [facility] LABORATORY Lymphocytes Abs 1.1 0.9 - 3.2 [facility] x10(3)/[facility] LABORATORY Monocytes % 7.8 % [facility] LABORATORY Monocyte Abs 0.7 0.3 - 0.9 [facility] x10(3)/[facility] LABORATORY Eosinophils % 0.6 % [facility] LABORATORY Eosinophils Abs 0.1 0.0 - 0.4 [facility] x10(3)/[facility] LABORATORY Basophils % 0.6 % [facility] LABORATORY Basophils Abs 0.1 0.0 - 0.1 [facility] x10(3)/[facility] LABORATORY Immature Gran % 0.30 % [facility] LABORATORY Comment: Immature granulocytes(IG's)percentage an d absolute count will include metamyelocytes, myelocytes, and promyelo cytes. Blood smears from CBCs yielding IG's will be scanned manually for concor dance. If this scan disagrees with the automated IG or if promyelocytes are not ed, a manual differential will be performed. Rain Gran Abs 0.03 0.00 - 0.04 x10(3)/[facility] LABORATORY Specimen Anatomical Collection Method Collection Time Receive d Time (Source) Location / / Volume Laterality Blood 05/15/2022 12:00 05/15/2022 PM EDT 12:19 PM EDT Resulting Agency Comment Spec In Lab Lc TRIPP HEMATOLOGY ORDERABLES Performing Organization Address City/State/[place] [address] (ABNORMAL) Hemogram (05/15/2022 12:00 PM EDT) Analysis Performed At Patho logist Time Signature WBC 9.4 4.0 - 9.5 [facility] x10(3)/[facility] LABORATORY RBC 4.48 (L) 4.58 - [facility] 5.54 [facility] x10(6)/[facility] LABORATORY Hemoglobin 14.5 13.7 - [facility] 16.5 g/dL [facility] LABORATORY Hematocrit 42.4 40.5 - [facility] 48.5 % [facility] LABORATORY MCV 94.6 (H) 82.9 - [facility] 93.1 [facility] LABORATORY MCH 32.4 (H) 27.5 - [facility] 32.1 pg [facility] LABORATORY MCHC 34.2 32.0 - [facility] 35.7 g/dL [facility] LABORATORY Platelets 209 145 - 357 [facility] x10(3)/[facility] LABORATORY RDWSD 45.9 (H) 36.0 - [facility] 45.0 [facility] LABORATORY RDWCV 13.1 11.4 - [facility] 13.8 % [facility] LABORATORY MPV 10.5 7.6 - 12.9 [facility] LABORATORY nRBC % Auto 0.0 % [facility] LABORATORY nRBC Abs Auto 0.000 0.000 - [facility] 0.000 [facility] x10(3)/[facility] LABORATORY Specimen Anatomical Collection Method Collection Time Receive d Time (Source) Location / / Volume Laterality Blood 05/15/2022 12:00 05/15/2022 PM EDT 12:19 PM EDT Resulting Agency Comment Spec In Lab Lc TRIPP HEMATOLOGY ORDERABLES Performing Organization Address City/State/[place] [address] (ABNORMAL) Basic Metabolic Panel (non-fasting) (05/15/2022 12:00 PM EDT) P athologist Signature Glucose Lvl 203 (H) 65 - 199 [facility] mg/dL [facility] Comment: Diabetes: >=200 mg/dL plus symp toms BUN 16 10 - 20 mg/dL [facility] Creatinine 0.84 0.80 - [...] estions. Chloride 107 98 - 107 mmol/L [facility] CO2 23 22 - 31 mmol/L [facility] Anion Gap 11 5 - 15 mmol/L [facility] Calcium 8.5 8.5 - 10.5 mg/dL [facility] Estimated GFR 89 >=60 mL/min/1.73 m?? [facility] Comment: This patient's [...] Organization Address City/State/[place] [address] documented in this encounter [...] mg = 1.8 mg/kg/dose ? 67.7 kg [place] weight), Intravenous, at 11.3 mL/hr, EVERY 3 [...] mg = 2.4 mg/kg/dose ? 67.7 kg [place] weight), Intravenous, at 15 mL/hr, ONCE, 1 [...] mg = 0.24 mg/kg/dose ? 67.7 kg [place] weight), Oral, 2 TIMES DAILY, 2 doses, [...] mg = 0.48 mg/kg/dose ? 67.7 kg [place] weight), Oral, 2 TIMES DAILY, 2 doses, [...] mg = 0.12 mg/kg/dose ? 67.7 kg [place] weight), Oral, 2 TIMES DAILY, 2 doses, [...] - Reason: Transfer to a Procedural area)1955 ([facility] Unhold - Provider: Admin [...] 0853 (Given - Provider: Barbie Joyce RN)1750 ([facility] Hold - Provider: Admin Adt - Reason: Transfer to a Procedural area)1955 ([facility] Unhold - Provider: Admin Adt) 0816 (Given - Provider: Etta contreras RN) 100 mg, Oral, DAILY, First dose on Brandi at 0900, Until Discontinued, Routine valsartan (Diovan) tablet 40 mg 0838 (Given - Provider : Caroline Zamora, DION)2008 (Given - Provider: Nuris Lester RN) 0853 (Given - Provider: Barbie Joyce RN)1750 ([facility] Hold - Provider: Admin Adt - Reason: Transfer to a Procedural area)1955 ([facility] Unhold - Provider: Admin [...] (New Bag - Provider: Barbie Joyce RN)1750 ([facility] Hold - Provider: Admin Adt - Reason: Transfer to a Procedural area)1955 ([facility] Unhold - Provider: Admin [...] - Reason: Transfer to a Procedural area)1955 ([facility] Unhold - Provider: Admin [...] bisacodyL (Dulcolax) suppository 10 mg 1 751 ([facility] Hold - Provider: Admin Adt - Reason: Transfer to a Procedural area)1955 ([facility] Unhold - Provider: Admin [...] (porcine) (1,000 units/mL) injection 0-8,000 Units 1750 ([facility] Hold - Provider: Admin [...]
Routine documented in this encounter Care Teams Flavor Extractor Relationship Specialty Start Date End Date Bobby Das MD PCP - General 10/02/[address] [place] [address] [place] [id number] documented as of this encounter
--- OUTSIDE RECORDS SUMMARY | 2022-07-08 09:49 | XMS_ITS | Encounter Summary ---
:1940 [place] [address] Care Team Providers Name Role Phone Bobby Das MD Primary Care Provider Reason for Referral Diagnostic Test (Routine) - Closed Specialty Diagnoses / Procedures Referred By Contact Refer red To Contact Cardiology Diagnoses Paroxysmal atrial fibrillation Nasrin Parra PA [facility] Non-Inv Card Lab Procedures [place] 48 Hrs-15 Days [facility] VASCULAR SURGERY [place], [place] [id number] [place] [phone] Fax: Referral ID Status Reason Start Date Expiration Date Visits V isits Requested Authorized [id number] Closed Specialty 05/21/2022 10/21/2022 1 1 Service Requested Reason for Visit Auth/Cert Specialty Diagnoses / Procedures Referred By Contact Refer red To Contact Diagnoses Limb ischemia LLE thrombus Fito Summers MD [facility] [place] [address] Referral ID Status Reason Start Date Expiration Date Visits Requ ested Visits Authorized [id number] 1 1 Encounter Details Date Type Department Care Team Description 05/21/2022 Hospital Encounter Non-Invasive Paroxysma l atrial Cardiology [place] [address] Social History Tobacco Use Types Packs/Day [...] 04/12/20 21 (FLONASE) 50 mcg/actuation Nare route [place], Suspension daily as needed. fluorouraciL (EFUDEX) 5 [...] 08/08/2022 Office Visit Gastroenterology Negra Collins MD [facility] DR GASTROENTEROLOGY DEPT [place], [place] [address] (Wo rk) 09/05/2022 Appointment Cardiology Trinity Reid MD [facility] CARDIOLOGY [place], [place] [address] (Wo rk) 09/05/2022 Office Visit Cardiology Trinity eRid MD [facility] CARDIOLOGY [place], [place] [address] (Wo rk) documented as of [...] fibrillation documented in this encounter Care Teams Warp Preparer Relationship Specialty Start Date End Date Bobby Das MD PCP - General 10/02/[address] [place] [address] [place] [phone] documented as of this encounter
--- OUTSIDE RECORDS SUMMARY | 2022-07-08 09:49 | XMS_ITS | Encounter Summary ---
:1940 Author Organization [facility] [place] [address] Care Team Providers Name Role Phone Bobby Das MD Primary Care Provider Encounter Details Date Type Department Care Team Description 05/28/2022 Telephone Vascular Surgery at [facility] Dominique Bolivar, [place] [address] Social History Tobacco Use Types Packs/Day [...] RN - 05/28/2022 1:20 PM EDT This senior grant writer returned phone call due to 's [...] cardiac history and symptoms of lightheadedness, this senior grant writer recommended the patient be evaluated. Discussed going to local ED ([facility]) where staff could also phone vascular and/or cardiac at [facility] for planning. The patient agreed to do this after he has lunch. documented in this encounter Plan of Treatment Upcoming Encounters Date Type Specialty Care Team Description 08/08/2022 Office Visit Gastroenterology Negra Collins MD [facility] DR GASTROENTEROLOGY DEPT [place], [place] [address] (Wo rk) 09/05/2022 Appointment Cardiology Trinity Reid MD [facility] CARDIOLOGY [place], [place] [address] (Wo rk) 09/05/2022 Office Visit Cardiology Trinity Reid MD [facility] CARDIOLOGY [place], [place] [address] (Wo rk) documented as of this encounter Visit Diagnoses Not on filedocumented in this encounter Care Teams Hunter Skin Diver Relationship Specialty Start Date End Date Bobby Das MD PCP - General 10/02/[address] [place] [address] [place] [phone] documented as of this encounter
--- OUTSIDE RECORDS SUMMARY | 2022-07-08 09:49 | XMS_ITS | Encounter Summary ---
:1940 Author Organization [facility] Address [facility] [place] [address] Care Team Providers Name Role Phone Bobby Das MD Primary Care Provider Encounter Details Date Type Department Care Team Description 05/31/2022 Office Visit Vascular Surgery at [facility]; [facility] INDUSTRIAL ENGINEERING TECHNOLOGIST Atrial fibrillation, unspecified type; [facility] SOB (shortness of breath) Drive [place] VASCULAR SURGERY [address] [place] [id number] [phone] Social History Tobacco Use Types Packs/Day Years [...] emergently went to the OR 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 arteriotomy and primary repair, thromboembolectomy of L SFA/PFA/ARC WELDING MACHINE OPERATOR, reperfusion venous drainage for 250 cc, and [...] ND, no palpable pulsatile masses Extremity - [place], warm, no ulceration, brisk capillary refill, left [...] 08/08/2022 Office Visit Gastroenterology Negra Collins MD [facility] GASTROENTEROLOGY DEPT [place] [phone] (Wo rk) 09/05/2022 Appointment Cardiology Trinity Reid MD [facility] CARDIOLOGY [place], [place] [address] (Wo rk) 09/05/2022 Office Visit Cardiology Trinity Reid MD [facility] CARDIOLOGY [place], [place] [address] (Wo rk) documented as of this encounter Visit Diagnoses Diagnosis Dizzy Dizziness and giddiness Atrial fibrillation, unspecified type SOB (shortness of breath) Shortness of breath documented in this encounter Care Teams Maintenance Analyst Relationship Specialty Start Date End Date Bobby Das MD PCP - General 10/02/[address] [place] [address] [place] [phone] documented as of this encounter
--- OUTSIDE RECORDS SUMMARY | 2022-07-08 09:49 | XMS_ITS | Encounter Summary ---
:1940 Author Organization [facility] [place] [address] Care Team Providers Name Role Phone Bobby Das MD Primary Care Provider Encounter Details Date Type Department Care Team Description 05/24/2022 Telephone Cardiology at [facility] Kourtney Jimenez, RN [facility] [place] [address] Social History Tobacco Use Types Packs/Day [...] [facility] DR GASTROENTEROLOGY DEPT [place], [place] [address] (Wo rk) 09/05/2022 Appointment Cardiology Trinity Reid MD [facility] CARDIOLOGY [place], [place] [address] (Wo rk) 09/05/2022 Office Visit Cardiology Trinity Reid MD [facility] CARDIOLOGY [place], [place] [address] (Wo rk) documented as of this encounter Visit Diagnoses Not on filedocumented in this encounter Care Teams Tufting Creeler Relationship Specialty Start Date End Date Bobby Das MD PCP - General 10/02/[address] [place] [address] [place] [phone] documented as of this encounter
--- OUTSIDE RECORDS SUMMARY | 2022-07-08 09:49 | XMS_ITS | Encounter Summary ---
:1940 Author Organization [facility] [place] [address] Care Team Providers Name Role Phone Bobby Das MD Primary Care Provider Reason for Visit Reason Comments Dizziness Auth/Cert Specialty Diagnoses / Procedures Referred By Contact Refer red To Contact Diagnoses GIB (gastrointestinal bleeding) Abe [facility] [place] [address] Referral ID Status Reason Start Date Expiration Date Visits Requ ested Visits Authorized [id number] 1 1 Encounter Details Date Type Department Care Team Description 05/31/2022 Surgery Gastroenterology at [facility] Giovani Ponce, EGD, UPPER GI [facility] Bobby [place] [id number] [facility] [phone] Dr [place] MD 0375 Social History Tobacco Use Types Packs/Day [...] switching to a different bloodthinner with the tower foreman outpatient. Call your doctor or seek medical [...] switchingto a different blood thinner with your tower foreman as an outpatient Stopped Medications - Aspirin - Valsartan - Speak with your tower foreman about the timing of restarting this Follow-up Appointments Future Appointments Date Time Provider Department Center 06/10/2022 11:00 AM Loretta Cohen MD [facility] 06/13/2022 7:30 AM Edson [place] [facility] VAS LAB [facility] 06/13/2022 8:00 AM Fito Summers MD [facility] V SURG [facility] 06/13/2022 10:00 AM Alan Reid MD [facility] CARD [address] [place] [address] Your Inpatient Medical Team at [facility] Name(s) of your inpatient provider(s): Dr. John Ames For questions regarding issues relating to your hospitalization on the Hospital Medicine Service, please contact your inpatient physician through the [facility] Aba Tutor [phone]. Issues after hours and on weekends will be handled by the Hospitalist staff on-call. Your Primary Care Provider Bobby Das MD [phone] Future Appointments and Orders Future Appointments and Orders Future Appointments Provider Department Dept Phone 06/10/2022 11:00 AM Loretta Cohen MD Dermatology at [facility] Arrive at: Tower Excavator Operator [address] [place] [phone] 06/13/2022 7:30 AM Edson [place] Vascular Lab at [facility] Arrive at: Tower Excavator Operator Area 06/13/2022 8:00 AM Fito Summers MD Vascular Surgery at [facility] Arrive at: Tower Excavator Operator Area 06/13/2022 10:00 AM Alan Reid MD Cardiology at [facility] Arrive at: Tower Excavator Operator Area 4A [phone] For questions regarding this document or issues relating to this hospitalization on the Medical Service, please contact your inpatient physician through the [facility] Aba Tutor . Issues after hours and on weekends [...] switching to a different bloodthinner with the tower foreman outpatient. Call your doctor or seek medical [...] switchingto a different blood thinner with your tower foreman as an outpatient Stopped Medications - Aspirin - Valsartan - Speak with your tower foreman about the timing of restarting this Follow-up Appointments Future Appointments Date Time Provider Department Center 06/10/2022 11:00 AM Loretta Cohen MD [facility] 06/13/2022 7:30 AM Edson [place] [facility] VAS LAB ILDA POWELL 06/13/2022 8:00 AM Fito Summers MD [facility] V SURG [facility] 06/13/2022 10:00 AM Alan Reid MD [facility] CARD 4A [facility] Your Inpatient Medical Team at [facility] Name(s) of your inpatient provider(s): Dr. John Ames For questions regarding issues relating to your hospitalization on the Hospital Medicine Service, please contact your inpatient physician through the [facility] Aba Tutor [phone]. Issues after hours and on weekends will be handled by the Hospitalist staff on-call. Your Primary Care Provider Bobby Das MD [phone] documented in this encounter Medications at Time [...] 04/12/20 21 (FLONASE) 50 mcg/actuation Nare route Hancock, Suspension daily as needed. fluorouraciL (EFUDEX) 5 [...] spent >30 minutes (Day of Discharge Code 03874) involved in the final examination of the [...] original note were not included. [facility] Medicine Progress Note [place] Team - Pager #[phone] Admit Date: 05/31/2022 Name: Koko Zamora : [...] cardiology to discuss antiplatelet (ISO bleed and retirement), following. ?? #CAD s/p stenting recently #HFrEF [...] Kurt Ames MD Internal Medicine, PGY-1 Medicine [place] Team #[id number] Associated attestation - John Jolley MD - 06/01/2022 5:02 PM EDT [facility] -- Attending Progress Note Please see [...] original note were not included. [facility] Medicine (#[id number]) History and Physical Patient info: Name: Koko Zamora : 1940 PCP: Bobby Das MD PCP phone number: [phone] Date of Admission: 05/31/2022 ( Hospital Day [...] IR Biopsy Spine 07/20/2019 Bobby Marshall MD [facility] INTERVENTIONL RAD ??? IR VERTEBROPLASTY LUMBAR MULTIPLE LEVELS 07/20/2019 IR Vertebroplasty Lumbar Multiple Levels 07/20/2019 Bobby Marshall MD [facility] INTERVENTIONL RAD ??? IR VERTEBROPLASTY THORACIC SINGLE LEVEL 10/25/2020 IR Vertebroplasty Thoracic Single Level 10/25/2020 Matt Chisholm MD [facility] INTERVENTIONL RAD ??? PRO EMBLC/THRMBC FEMORAL POPLITEAL AORTO-ILIAC ARTERY Left 05/15/2022 EMBOLECTOMY OR THROMBECTOMY, FEMOROPOPLITEAL, AORTOILIAC ARTERY BY LEG INCISION (WRVU 19.48) performed by Fito Summers MD at [facility] MAIN OR No family history [...] 11 ??? fluticasone propionate (FLONASE) 50 mcg/actuation Hancock, Suspension as needed. ??? fluorouraciL (EFUDEX) 5 [...] Gas) No results found for: PHART, PO2ART, KFP4KCW, DQX0UJL Microbiology: N/A Pertinent radiology/diagnostic studies: Recent prior [...] Status: Full Arpita Valle MD, PGY-3 05/31/2022 [facility] Medicine # [id number] Attending Staff Admission Documentation [...] 05/31/2022 3:58 PM EDT [facility]. Upon arrival to pt's [...] 10:50 AM EDT Pt brought to by chick grader Brittany Ramirez MD - 05/31/2022 10:40 [...] who have questions please contact the health senior care assistant that requested your imaging first. Electronically signed by: Jl Zuluaga MD, [facility] ([phone]), at 05/31/2022 2:39 PM XR Chest PA [...] who have questions please contact the health senior care assistant that requested your imaging first. Electronically signed by: Alan Brink MD, [facility] ([phone]), at 05/31/2022 11:33 AM ED Course as [...] recommendations from Brittany Tavares MD Resident 05/31/22 [id number] Associated attestation - Regina Hinds MD - [...] soft blood pressures, MD made aware. LBM ACETYLENE CUTTER. 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 Patient reported blurry/hazy [...] not included. [place] [phone] INPATIENT CARDIOLOGY CONSULT NOTE Date of Consultation: 06/01/2022 Admit Date: 05/31/2022 Place of Service: IS86/IS86-A Referring Attending: REGINA HINDS COLEMAN W FRIEDMAN, HARLEY P Responsible Cyber Defense Incident Responder: Dr. Rizo Hospital Day 1 day Reason for Consult: Antiplatelet/anticoagulation s/p pci and afib, with GI bleed HPI: Koko Zamora is a 81 y.o. male with a cardiac history significant for remote mitral valve repair (2000), pre-DM, HLD, significant alcohol use, tobacco use, Afib on xarelto, ischemic systolic heartfailure (recent [facility] 05/20/2022 with 2V disease OM1 and distal RCA, had ostial LCX and LCx stent) who presented to [facility] on 05/31/2022 for GI bleed. Patient presented [...] IR Biopsy Spine 07/20/2019 Bobby Marshall MD [facility] INTERVENTIONL RAD ??? IR VERTEBROPLASTY LUMBAR MULTIPLE LEVELS 07/20/2019 IR Vertebroplasty Lumbar Multiple Levels 07/20/2019 Bobby Marshall MD [facility] INTERVENTIONL RAD ??? IR VERTEBROPLASTY THORACIC SINGLE LEVEL 10/25/2020 IR Vertebroplasty Thoracic Single Level 10/25/2020 Matt Chisholm MD [facility] INTERVENTIONL RAD ??? PRO EMBLC/THRMBC FEMORAL POPLITEAL AORTO-ILIAC ARTERY Left 05/15/2022 EMBOLECTOMY OR THROMBECTOMY, FEMOROPOPLITEAL, AORTOILIAC ARTERY BY LEG INCISION (WRVU 19.48) performed by Fito Summers MD at [facility] MAIN OR ALLERGIES: Allergies Allergen [...] time ??? fluticasone propionate (FLONASE) 50 mcg/actuation Hancock, Suspension 1 spray by Each Nare route [...] from 05/31/2022 in Intermediate Special Care Unit [facility] ED to Hosp-Admission (Discharged) from 05/15/2022 in Intermediate Cardiac Care Unit [facility] Weight 77.1 kg (170 lb) 1 [...] 3.5 guiding catheter and a 3.5 [address] 20 Mhz. Imaging was successful. Image [...] A premounted 2.75 x 30 mm Rudy Bosque (AMPARO) was deployed with a maximum inflation [...] may require modification of this regimen. Consult [facility] Interventional Cardiology for questions. The 1 year [...] Hb drop. Unknown source. has had a [facility] with stent placed and revascularization of left lower extremity within the past two weeks, recently on anticoagulation Unknown source of bleeding TECHNIQUE: Helical CT of the abdomen and pelvis was performed before and after the intravenous administration contrast utilizing GI bleed protocol. Administered 125.0 ml of OMNIPAQUE 350.00 mg/ml. Oral contrast was not administered. COMPARISON: 05/15/2022 from [facility] FINDINGS: GI Tract: Pre-contrast: No bowel [...] who have questions please contact the health senior care assistant that requested your imaging first. Electronically signed by: Jl Zuluaga MD, [facility] ([phone]), at 05/31/2022 2:39 PM Ziopatch 48 Hrs-15 [...] who have questions please contact the health senior care assistant that requested your imaging first. Electronically signed by: Alan Brink MD, [facility] ([phone]), at 05/31/2022 11:33 AM LABS Recent Labs [...] on xarelto, ischemic systolic heart failure (recent [facility] 05/20/2022 with 2V disease OM1 and distal RCA, had ostial LCX and LCx stent), recent admission for acutelimb ischemia LLE, where he had left common femoral transverse arteriotomy and primary repair, thromboembolectomy of the SFA, profunda and common femoral artery with 4 compartment fasciotomies, who presented to [facility] on 05/31/2022 for GI bleed. Cardiology consulted [...] attestation for additional insight. Rossy Anaya MD [facility] Marine Designer, PGY-5 Inpatient Cardiology Consults Pager #[phone] Please check Qgenda for on-call cardiology consults [...] A&Ox 4. On room air. VSS. LBM: ACETYLENE CUTTER. Adequate urine output, urinal at bedside, flomax [...] surrogate would be surrogate decision maker per [place] surrogate decision making law. (Only good for 180 days) Any patient receiving care in [place] must abide by [place] law. The hierarchy [...] (i) The agent with financial power of district attorney or a conservator appointed in accordance with RSA 464-A. (j) The guardian of the patient???s estate. Advance Care Planning: Attempt Cardiopulmonary Resuscitation - Inpatient <no information> -Advanced Directive: No, need to discuss ( Ursula Zamoar - per surrogacy) Current Coping/Education/Information Needs: Patient [...] walker - rolling Home Address confirmed as: [address] [place] [id number] Social & Family Supports: All names listed below confirmed with patient as current and correct Extended Emergency Contact Information Primary Emergency Contact: Ursula Zamora Address: [address] [place] [phone] [facility] Relation: Spouse Current [...] *No Product type* / Secondary Insurance: [facility] Secondary Insurance? (Only Medicare A&B): Yes ; Prescription Coverage: Yes Preferred Pharmacy: [facility] [place], [place] - [address] [place] [address] [place] [id number] [place] Status: Patient is a : No Primary Care Provider: Bobby Das MD [phone] Patient/Caregiver Goals of Treatment: Patient plans to [...] with transition of care planning. ASH Garcia Band Nailer [facility] Medicine/ Medical Specialties Pager- [phone] [...] Operative Note Patient Name: Koko Zamora : [id number] MR#: [id number] Case Date: 05/31/2022 Surgeon: Surgeon(s) and Role: [...] stomach. He has had colonoscopies before in [place] - notes first ever he had 6 polyps removed but last colo 5 yrs ago was normal. He lives in [facility]. Currently light-headedness is improved. No fevers, [...] IR Biopsy Spine 07/20/2019 Bobby Marshall MD [facility] INTERVENTIONL RAD ??? IR VERTEBROPLASTY LUMBAR MULTIPLE LEVELS 07/20/2019 IR Vertebroplasty Lumbar Multiple Levels 07/20/2019 Bobby Marshall MD [facility] INTERVENTIONL RAD ??? IR VERTEBROPLASTY THORACIC SINGLE LEVEL 10/25/2020 IR Vertebroplasty Thoracic Single Level 10/25/2020 Matt Chisholm MD [facility] INTERVENTIONL RAD ??? PRO EMBLC/THRMBC FEMORAL POPLITEAL AORTO-ILIAC ARTERY Left 05/15/2022 EMBOLECTOMY OR THROMBECTOMY, FEMOROPOPLITEAL, AORTOILIAC ARTERY BY LEG INCISION (WRVU 19.48) performed by Fito Summers MD at [facility] MAIN OR SOCIAL HX: Social [...] sounds, tympanic to percussion RECTAL: performed with spray drier present, no overt masses, fissures, external hemorrhoids, [...] who have questions please contact the health senior care assistant that requested your imaging first. Electronically signed by: Alan Brink MD, [facility] ([phone]), at 05/31/2022 11:[address] Abdomen & [...] [facility] [place], [place] 0375 (Wo rk) 09/05/2022 Appointment Cardiology Trinity Reid MD [facility] CARDIOLOGY [place], [place] 0375 (Wo rk) 09/05/2022 Office Visit Cardiology Trinity Reid MD [facility] CARDIOLOGY [place], [place] 0375 (Wo rk) documented as of [...] P athologist Signature Neutrophils % 61.3 % [facility]OR[facility] Neutr Abs (ANC) 4.44 1.70 - [facility] 6.10 [facility] x10(3)/[facility] LABORATORY Lymphocytes % 25.2 % [facility] Lymphocytes Abs 1.8 0.9 - 3.2 [facility] x10(3)/[facility] LABORATORY Monocytes % 10.0 % [facility] Monocyte Abs 0.7 0.3 - 0.9 [facility] x10(3)/[facility] LABORATORY Eosinophils % 2.1 % [facility] Eosinophils Abs 0.2 0.0 - 0.4 [facility] x10(3)/[facility] LABORATORY Basophils % 0.7 % [facility] Basophils Abs 0.0 0.0 - 0.1 [facility] x10(3)/[facility] LABORATORY Immature Gran % 0.70 % [facility] Comment: Immature granulocytes(IG's)percentage an d absolute count will include metamyelocytes, myelocytes, and promyelo cytes. Blood smears from CBCs yielding IG's will be scanned manually for concor dance. If this scan disagrees with the automated IG or if promyelocytes are not ed, a manual differential will be performed. Rain Gran Abs 0.05 (H) 0.00 - 0.04 x10(3)/[facility] LABORATORY Specimen Anatomical Collection Method Collection Time Receive d Time (Source) Location / / Volume Laterality Blood 06/02/2022 8:20 AM 8:25 EDT AM EDT Resulting Agency Comment Spec In Lab Kurt Ames MD HEMATOLOGY ORDERABLES Performing Organization Address City/State/[place] [address] (ABNORMAL) Hemogram (06/02/2022 8:20 AM EDT) Analysis Performed At Patho logist Time Signature WBC 7.2 4.0 - 9.5 [facility] x10(3)/[facility] LABORATORY RBC 2.74 (L) 4.58 - [facility] 5.54 [facility] x10(6)/[facility] LABORATORY Hemoglobin 8.7 (L) 13.7 - [place] 16.5 g/dL [facility] LABORATORY Hematocrit 25.7 (L) 40.5 - [place] 48.5 % [facility] LABORATORY MCV 93.8 (H) 82.9 - [place] 93.1 [facility] LABORATORY MCH 31.8 27.5 - [place] 32.1 pg [facility] LABORATORY MCHC 33.9 32.0 - [place] 35.7 g/dL [facility] LABORATORY Platelets 260 145 - 357 [facility] x10(3)/[facility] LABORATORY RDWSD 51.0 (H) 36.0 - [place] 45.0 [facility] LABORATORY RDWCV 14.9 (H) 11.4 - [facility] XIAO 13.8 % [facility] LABORATORY MPV 10.0 7.6 - 12.9 [facility] LABORATORY nRBC % Auto 0.0 % [facility] nRBC Abs Auto 0.000 0.000 - [facility] [place] 0.000 [facility] x10(3)/[facility] LABORATORY Specimen Anatomical Collection Method Collection Time Receive d Time (Source) Location / / Volume Laterality Blood 06/02/2022 8:20 AM 8:25 EDT AM EDT Resulting Agency Comment Spec In Lab Kurt Ames MD HEMATOLOGY ORDERABLES Performing Organization Address City/State/[place] [address] Heparin (unfractionated) Level (06/02/2022 6:30 AM EDT) P athologist Signature Heparin UFH 0.39 IU/mL [facility] LABORATORY Comment: Heparin (anti-Xa) levels [...] MD HEMATOLOGY ORDERABLES Performing Organization Address City/[facility]/ZIP Code Phon e Number [address] Heparin (unfractionated) Level (06/02/2022 12:30 AM EDT) athologist Signature Heparin UFH 0.81 IU/mL [facility] LABORATORY Comment: Heparin (anti-Xa) levels [...] MD HEMATOLOGY ORDERABLES Performing Organization Address City/[facility]/[place] [address] Magnesium (06/02/2022 12:30 AM EDT) P athologist Signature Magnesium 0.83 0.69 - 1.07 [facility] mmol/L [facility] LABORATORY Specimen Anatomical Collection Method Collection Time Receive d Time (Source) Location / / Volume Laterality Blood 06/02/2022 12:30 06/02/2022 AM EDT 12:40 AM EDT Resulting Agency Comment Spec In Lab Mahendra Victor MD CHEMISTRY ORDERABLES Performing Organization Address City/State/[place] [address] (ABNORMAL) Basic Metabolic Panel (non-fasting) (06/02/2022 12:30 AM EDT) P athologist Signature Glucose Lvl 151 65 - 199 [facility] mg/dL [facility] LABORATORY Comment: Diabetes: >=200 mg/dL plus symp toms BUN 12 10 - 20 mg/dL [facility] LABORATORY Creatinine 0.71 (L) 0.80 - 1.50 mg/dL [facility] LABORATORY Sodium 142 135 - 145 mmol/L [facility]OR[facility] Potassium 3.8 3.5 - 5.0 mmol/L [facility] LABORATORY Comment: Please note: ??Patients [...] Anion Gap 10 5 - 15 mmol/L [facility] LABORATORY Calcium 8.1 (L) 8.5 - 10.5 mg/dL [facility] LABORATORY Estimated GFR 93 >=60 mL/min/1.73 m?? [facility] Comment: [...] Organization Address City/State/[place] [address] (ABNORMAL) Differential, Automated (06/01/2022 7:29 PM EDT) athologist Signature Neutrophils % 68.8 % [facility] Neutr Abs (ANC) 5.34 1.70 - [facility] 6.10 [facility] x10(3)/[facility] LABORATORY Lymphocytes % 19.6 % [facility] Lymphocytes Abs 1.5 0.9 - 3.2 [facility] x10(3)/[facility] LABORATORY Monocytes % 8.1 % [facility] Monocyte Abs 0.6 0.3 - 0.9 [facility] x10(3)/[facility] LABORATORY Eosinophils % 1.8 % [facility] Eosinophils Abs 0.1 0.0 - 0.4 [facility] x10(3)/[facility] LABORATORY Basophils % 0.8 % [facility] Basophils Abs 0.1 0.0 - 0.1 [facility] x10(3)/[facility] LABORATORY Immature Gran % 0.90 % [facility] Comment: Immature granulocytes(IG's)percentage an d absolute count will include metamyelocytes, myelocytes, and promyelo cytes. Blood smears from CBCs yielding IG's will be scanned manually for concor dance. If this scan disagrees with the automated IG or if promyelocytes are not ed, a manual differential will be performed. Rain Gran Abs 0.07 (H) 0.00 - 0.04 x10(3)/[facility] LABORATORY Specimen Anatomical Collection Method Collection Time Receive d Time (Source) Location / / Volume Laterality Blood 06/01/2022 7:29 PM 2 7:29 EDT PM EDT Resulting Agency Comment Spec In Lab Kurt Ames MD HEMATOLOGY ORDERABLES Performing Organization Address City/State/[place] [address] (ABNORMAL) Hemogram (06/01/2022 7:29 PM EDT) Analysis Performed At Patho logist Time Signature WBC 7.8 4.0 - 9.5 [facility] LABORATORY RBC 2.65 (L) 4.58 - [facility] 5.54 [facility] x10(6)/[facility] LABORATORY Hemoglobin 8.3 (L) 13.7 - [facility] 16.[facility] g/dL [facility] LABORATORY Hematocrit 24.8 (L) 40.5 - [facility] 48.5 % [facility] LABORATORY MCV 93.6 (H) 82.9 - [facility] 93.1 [facility] LABORATORY MCH 31.3 27.5 - [place] 32.1 pg [facility] LABORATORY MCHC 33.5 32.0 - [place] 35.7 g/dL [facility] LABORATORY Platelets 263 145 - 357 [facility] x10(3)/[facility] LABORATORY RDWSD 52.8 (H) 36.0 - [facility] XIAO 45.0 [facility] LABORATORY RDWCV 15.4 (H) 11.4 - [facility] XIAO 13.8 % [facility] LABORATORY MPV 10.4 7.6 - 12.9 [facility] nRBC % Auto 0.0 % [facility] nRBC Abs Auto 0.000 0.000 - [facility] XIAO 0.000 [facility] x10(3)/[facility] LABORATORY Specimen Anatomical Collection Method Collection Time Receive d Time (Source) Location / / Volume Laterality Blood 06/01/2022 7:29 PM 2 7:29 EDT PM EDT Resulting Agency Comment Spec In Lab Kurt Ames MD HEMATOLOGY ORDERABLES Performing Organization Address City/State/ZIP Code Phon e Number [address] Heparin (unfractionated) Level (06/01/2022 7:29 PM EDT) P athologist Signature Heparin UFH 0.81 IU/mL [facility] LABORATORY Comment: Heparin (anti-Xa) levels [...] Organization Address City/State/ZIP Code Phon e Number [address] (ABNORMAL) Heparin (unfractionated) Level (06/01/2022 11:32 AM EDT) Patholo gist Method Time Signature Heparin UFH 1.05 IU/mL [facility] (Critical) [facility] LABORATORY Comment: Critical Result called [...] Organization Address City/State/[place] [address] (ABNORMAL) Differential, Automated (06/01/2022 5:56 AM EDT) [facility] Method Time Signature Neutrophils % 62.7 % [facility] LABORATORY Neutr Abs (ANC) 6.11 (H) 1.70 - [facility] 6.10 [facility] x10(3)/[facility] LABORATORY Lymphocytes % 23.5 % [facility] LABORATORY Lymphocytes Abs 2.3 0.9 - 3.2 [facility] x10(3)/[facility] LABORATORY Monocytes % 10.0 % [facility] LABORATORY Monocyte Abs 1.0 (H) 0.3 - 0.9 [facility] x10(3)/[facility] LABORATORY Eosinophils % 2.2 % [facility] LABORATORY Eosinophils Abs 0.2 0.0 - 0.4 [facility] x10(3)/[facility] LABORATORY Basophils % 0.9 % [facility] LABORATORY Basophils Abs 0.1 0.0 - 0.1 [facility] x10(3)/[facility] LABORATORY Immature Gran % 0.70 % [facility] LABORATORY Comment: Immature granulocytes(IG's)percentage an d absolute count will include metamyelocytes, myelocytes, and promyelo cytes. Blood smears from CBCs yielding IG's will be scanned manually for concor dance. If this scan disagrees with the automated IG or if promyelocytes are not ed, a manual differential will be performed. Rain Gran Abs 0.07 (H) 0.00 - 0.04 x10(3)/[facility] LABORATORY Specimen Anatomical Collection Method Collection Time Receive d Time (Source) Location / / Volume Laterality Blood 06/01/2022 5:56 AM 2 6:05 EDT AM EDT Resulting Agency Comment Spec In Lab Arpita Valle MD HEMATOLOGY ORDERABLES Performing Organization Address City/State/[place] [address] (ABNORMAL) Hemogram (06/01/2022 5:56 AM EDT) Analysis Performed At Patho logist Time Signature WBC 9.7 (H) 4.0 - 9.5 [facility] x10(3)/[facility] LABORATORY RBC 2.83 (L) 4.58 - [facility] 5.54 [facility] x10(6)/[facility] LABORATORY Hemoglobin 9.0 (L) 13.7 - [facility] g/dL [facility] LABORATORY Hematocrit 26.7 (L) 40.5 - [facility] 48.5 % [facility] LABORATORY MCV 94.3 (H) 82.9 - [facility] 93.1 [facility] LABORATORY MCH 31.8 27.5 - [facility] 32.1 pg [facility] LABORATORY MCHC 33.7 32.0 - [facility] 35.7 g/dL [facility] LABORATORY Platelets 250 145 - 357 [facility] x10(3)/[facility] LABORATORY RDWSD 54.3 (H) 36.0 - [facility] XIAO 45.0 [facility] LABORATORY RDWCV 15.9 (H) 11.4 - [facility] 13.8 % [facility] LABORATORY MPV 10.5 7.6 - 12.9 [facility] LABORATORY nRBC % Auto 0.0 % [facility] LABORATORY nRBC Abs Auto 0.000 0.000 - [facility] 0.000 [facility] x10(3)/[facility] LABORATORY Specimen Anatomical Collection Method Collection Time Receive d Time (Source) Location / / Volume Laterality Blood 06/01/2022 5:56 AM 2 6:05 EDT AM EDT Resulting Agency Comment Spec In Lab Arpita Valle MD HEMATOLOGY ORDERABLES Performing Organization Address City/State/[place] [address] Heparin (unfractionated) Level (06/01/2022 4:30 AM EDT) P athologist Signature Heparin UFH 0.68 IU/mL [facility] LABORATORY Comment: Heparin (anti-Xa) levels [...] MD HEMATOLOGY ORDERABLES Performing Organization Address City/[facility]/[place] [address] (ABNORMAL) Urinalysis with reflex Culture (06/01/2022 4:00 AM EDT) Patholo gist Method Time Signature Glucose UA 500 Negative [facility] (Critical) mg/dL [facility] LABORATORY Comment: Urinalysis result NOT critical without a combination of Glucose greater than or equal to 500 mg/dL AND Ketones greate r than or equal to 80 mg/dL Protein UA Negative Negative mg/dL [facility] LABORATORY Bilirubin UA Negative Negative mg/dL [facility] LABORATORY Comment: Clinical correlation [...] CENTER LABORATORY Blood UA Negative Negative mg/dL [facility] LABORATORY Ketones UA Negative Negative mg/dL [facility] LABORATORY Nitrite UA Negative Negative [facility] LABORATORY Leukocytes UA Negative Negative [facility] LABORATORY Appearance UA Clear Clear [facility] LABORATORY Spec Cofield UA >=1.030 (A) 1.005 - 1.030 [facility] LABORATORY Color UA Yellow Yellow [facility] LABORATORY Culture Reflexed No [facility] LABORATORY Specimen Anatomical Collection Method Collection Time Receive d Time (Source) Location / / Volume Laterality Clean Catch 06/01/2022 4:00 AM 2 4:26 Urine EDT AM EDT Resulting Agency Comment Spec In Lab Mahendra Victor MD URINE ORDERABLES Performing Organization Address City/[facility]/ZIP Code Phon e Number [address] Magnesium (06/01/2022 1:00 AM EDT) athologist Signature Magnesium 0.93 0.69 - 1.07 [facility] mmol/L [facility] LABORATORY Specimen Anatomical Collection Method Collection Time Receive d Time (Source) Location / / Volume Laterality Blood 06/01/2022 1:00 AM 2 1:37 EDT AM EDT Resulting Agency Comment Spec In Lab Mahendra Victor MD CHEMISTRY ORDERABLES Performing Organization Address City/[facility] Phon e Number [address] (ABNORMAL) Basic Metabolic Panel (non-fasting) (06/01/2022 1:00 AM EDT) athologist Signature Glucose Lvl 148 65 - 199 [facility] mg/dL [facility] LABORATORY Comment: Diabetes: >=200 mg/dL plus symp toms BUN 23 (H) 10 - 20 mg/dL [facility] LABORATORY Creatinine 0.78 (L) 0.80 - 1.50 mg/dL [facility] LABORATORY Sodium 141 135 - 145 mmol/L [facility] LABORATORY Potassium 4.0 3.5 - 5.0 mmol/L [facility] LABORATORY Comment: Please note: ??Patients [...] 31 mmol/L [facility] LABORATORY Anion Gap 9 5 - 15 mmol/L [facility] LABORATORY Calcium 8.6 8.5 - 10.5 mg/dL [facility] LABORATORY Estimated GFR 91 >=60 mL/min/1.73 m?? [facility] LABORATORY Comment: [...] Organization Address City/State/[place] [address] (ABNORMAL) Differential, Automated (06/01/2022 12:00 AM EDT) P athologist Signature Neutrophils % 64.6 % [facility] LABORATORY Neutr Abs (ANC) 5.60 1.70 - [facility] 6.10 [facility] x10(3)/[facility] LABORATORY Lymphocytes % 22.4 % [facility] LABORATORY Lymphocytes Abs 1.9 0.9 - 3.2 [facility] x10(3)/[facility] LABORATORY Monocytes % 9.5 % [facility] LABORATORY Monocyte Abs 0.8 0.3 - 0.9 [facility] x10(3)/[facility] LABORATORY Eosinophils % 2.1 % [facility] LABORATORY Eosinophils Abs 0.2 0.0 - 0.4 [facility] x10(3)/[facility] LABORATORY Basophils % 0.6 % [facility] LABORATORY Basophils Abs 0.0 0.0 - 0.1 [facility] x10(3)/[facility] LABORATORY Immature Gran % 0.80 % [facility] LABORATORY Comment: Immature granulocytes(IG's)percentage an d absolute count will include metamyelocytes, myelocytes, and promyelo cytes. Blood smears from CBCs yielding IG's will be scanned manually for concor dance. If this scan disagrees with the automated IG or if promyelocytes are not ed, a manual differential will be performed. Rain Gran Abs 0.07 (H) 0.00 - 0.04 x10(3)/[facility] LABORATORY Specimen (Source) Anatomical Collection Method Collection Time Re ceived Time Location / / Volume Laterality Blood 06/01/2022 06/01/2022 12:1 0 AM EDT Resulting Agency Comment Spec In Lab Arpita Valle MD HEMATOLOGY ORDERABLES Performing Organization Address City/State/[place] [address] (ABNORMAL) Hemogram (06/01/2022 12:00 AM EDT) Analysis Performed At Patho logist Time Signature WBC 8.7 4.0 - 9.5 [facility] x10(3)/[facility] LABORATORY RBC 2.77 (L) 4.58 - [facility] 5.54 [facility] x10(6)/[facility] LABORATORY Hemoglobin 8.6 (L) 13.7 - [facility] 16.5 g/dL [facility] LABORATORY Hematocrit 25.7 (L) 40.5 - [facility] 48.5 % [facility] LABORATORY MCV 92.8 82.9 - [facility] 93.1 [facility] LABORATORY MCH 31.0 27.5 - [facility] 32.1 pg [facility] LABORATORY MCHC 33.5 32.0 - [facility] 35.7 g/dL [facility] LABORATORY Platelets 260 145 - 357 [facility] x10(3)/[facility] LABORATORY RDWSD 51.9 (H) 36.0 - [facility] 45.0 [facility] LABORATORY RDWCV 15.5 (H) 11.4 - [facility] 13.8 % [facility] LABORATORY MPV 10.4 7.6 - 12.9 [facility] LABORATORY nRBC % Auto 0.0 % [facility] LABORATORY nRBC Abs Auto 0.000 0.000 - [facility] 0.000 [facility] x10(3)/[facility] LABORATORY Specimen (Source) Anatomical Collection Method Collection Time Re ceived Time Location / / Volume Laterality Blood 06/01/2022 06/01/2022 12:1 0 AM EDT Resulting Agency Comment Spec In Lab Arpita Valle MD HEMATOLOGY ORDERABLES Performing Organization Address City/State/[place] [address] (ABNORMAL) Differential, Automated (05/31/2022 9:17 PM EDT) P athologist Signature Neutrophils % 59.6 % [facility] LABORATORY Neutr Abs (ANC) 3.98 1.70 - [facility] 6.10 [facility] x10(3)/[facility] LABORATORY Lymphocytes % 27.5 % [facility] LABORATORY Lymphocytes Abs 1.8 0.9 - 3.2 [facility] x10(3)/[facility] LABORATORY Monocytes % 9.1 % [facility] LABORATORY Monocyte Abs 0.6 0.3 - 0.9 [facility] x10(3)/[facility] LABORATORY Eosinophils % 2.4 % [facility] LABORATORY Eosinophils Abs 0.2 0.0 - 0.4 [facility] x10(3)/[facility] LABORATORY Basophils % 0.7 % [facility] LABORATORY Basophils Abs 0.0 0.0 - 0.1 [facility] x10(3)/[facility] LABORATORY Immature Gran % 0.70 % [facility] LABORATORY Comment: Immature granulocytes(IG's)percentage an d absolute count will include metamyelocytes, myelocytes, and promyelo cytes. Blood smears from CBCs yielding IG's will be scanned manually for concor dance. If this scan disagrees with the automated IG or if promyelocytes are not ed, a manual differential will be performed. Rain Gran Abs 0.05 (H) 0.00 - 0.04 x10(3)/[facility] LABORATORY Specimen Anatomical Collection Method Collection Time Receive d Time (Source) Location / / Volume Laterality Blood 05/31/2022 9:17 PM 9:25 EDT PM EDT Resulting Agency Comment Spec In Lab Arpita Valle MD HEMATOLOGY ORDERABLES Performing Organization Address City/State/[place] [address] (ABNORMAL) Hemogram (05/31/2022 9:17 PM EDT) Analysis Performed At Patho logist Time Signature WBC 6.7 4.0 - 9.5 [facility] x10(3)/[facility] LABORATORY RBC 2.74 (L) 4.58 - [facility] 5.54 [facility] x10(6)/[facility] LABORATORY Hemoglobin 8.5 (L) 13.7 - [facility] 16.5 g/dL [facility] LABORATORY Hematocrit 25.7 (L) 40.5 - [facility] 48.5 % [facility] LABORATORY MCV 93.8 (H) 82.9 - [facility] 93.1 fL [facility] LABORATORY MCH 31.0 27.5 - [facility] 32.1 pg [facility] LABORATORY MCHC 33.1 32.0 - [facility] 35.7 g/dL [facility] LABORATORY Platelets 233 145 - 357 [facility] x10(3)/[facility] LABORATORY RDWSD 51.9 (H) 36.0 - [facility] 45.0 [facility] RDWCV 15.3 (H) 11.4 - [facility] XIAO 13.8 % [facility] MPV 10.3 7.6 - 12.9 [facility] XIAO [facility] LABORATORY nRBC % Auto 0.0 % [facility] nRBC Abs Auto 0.000 0.000 - [facility] 0.000 [facility] x10(3)/[facility] LABORATORY Specimen Anatomical Collection Method Collection Time Receive d Time (Source) Location / / Volume Laterality Blood 05/31/2022 9:17 PM 9:25 EDT PM EDT Resulting Agency Comment Spec In Lab Arpita Valle MD HEMATOLOGY ORDERABLES Performing Organization Address City/State/[place] [address] Transfuse RBC (05/31/2022 7:36 PM EDT) Regina Hinds MD NURSING TREATMENT ORDERABLES - BLOOD ADMIN Transfuse RBC (05/31/2022 7:36 PM EDT) Regina Hinds MD NURSING TREATMENT ORDERABLES - BLOOD ADMIN UPPER GI ENDOSCOPY (05/31/2022 3:37 PM EDT) Component Value Ref Test Analysis Performed At [facility] Range Method Time Signature UPPER GI [facility] PROVATION ENDOSCOPY Endoscopy Procedure Date: 05/31/2022 3:37 PM ? Patient Name: Koko Zamora ? Date of : 1940 ? Age: 81 ? Order #: [id number] ? Instrument Name: [id number] ? Procedure: ? Upper GI endoscopy Indications: [...] Procedure Code(s): ? --- Professional --- ? 64805, Esophagogastroduode noscopy, ? flexible, transoral; with control [...] stomach ? and duodenum CPT copyright 2021 [employer]. All rights reserved. The codes documented in this report are preliminary and upon invoice coder review may be revised to meet current [...] who have questions please contact the health senior care assistant that requested your imaging first. ? Electronically signed by: Jl walter MD, [facility] ([phone]), at 05/31/2022 2:39 PM Narrative 05/31/2022 2:39 PM EDT EXAMINATION: CT ABDOMEN AND PELVIS WWO CONTRAST (GI BLEED) CLINICAL HISTORY: Significant Hb drop. U nknown source. has had a [facility] with stent placed and revascularization of [...] enlarged lymph nodes. Vasculature: Patent common iliac, manager report al iliac, and common femoral arteries bilaterally. [...] enlarged lymph nodes. Vasculature: Patent common iliac, manager report al iliac, and common femoral arteries bilaterally. [...] ho have questions please contact the health senior care assistant that requested your imaging first. Regina Hinds MD G CT ORDERABLES Type and Screen Validity (05/31/2022 1:43 PM EDT) [facility] gist Method Time Signature T&S only valid [facility] at [facility] LABORATORY Comment: This Type and Screen result is only valid at the [facility] Hospital Specimen Anatomical Collection Method Collection Time Receive d Time (Source) Location / / Volume Laterality Blood 05/31/2022 1:43 PM 2 1:57 EDT PM EDT Resulting Agency Comment Spec In Lab Regina Hinds MD BLOOD BANK ORDERABLES Performing Organization Address City/State/[place] [address] ABORH Recheck Status (05/31/2022 1:43 PM EDT) [facility] Method Time Signature ABORH Type Completed [facility] LABORATORY Specimen Anatomical Collection Method Collection Time Receive d Time (Source) Location / / Volume Laterality Blood 05/31/2022 1:43 PM 2 1:57 EDT PM EDT Resulting Agency Comment Spec In Lab Regina Hinds MD BLOOD BANK ORDERABLES Performing Organization Address City/[facility]/[place] [address] Antibody screen (05/31/2022 1:43 PM EDT) [facility] Signature Ab Screen Negative [place] LABORATORY Expires at 06/03/2022 [facility] [id number] on: [facility] LABORATORY Specimen Anatomical Collection Method Collection Time Receive d Time (Source) Location / / Volume Laterality Blood 05/31/2022 1:43 PM 2 1:57 EDT PM EDT Resulting Agency Comment Spec In Lab Regina Hinds MD BLOOD BANK ORDERABLES Performing Organization Address City/[facility]/[place] [address] ABO/Rh Typing (05/31/2022 1:43 PM EDT) P athologist Signature ABORh Type O Pos [facility] LABORATORY Specimen Anatomical Collection Method Collection Time Receive d Time (Source) Location / / Volume Laterality Blood 05/31/2022 1:43 PM 2 1:57 EDT PM EDT Resulting Agency Comment Spec In Lab Regina Hinds MD BLOOD BANK ORDERABLES Performing Organization Address City/[facility]/[place] [address] Prepare RBC (05/31/2022 1:35 PM EDT) P athologist Signature Dispensed? Yes [facility] LABORATORY Specimen Anatomical Collection Method Collection Time Receive d Time (Source) Location / / Volume Laterality Blood 05/31/2022 1:35 PM 2 1:30 EDT PM EDT Regina Hinds MD BLOOD BANK ORDERABLES Performing Organization Address City/[facility] [place] [address] Prepare RBC (05/31/2022 1:25 PM EDT) P athologist Signature Dispensed? Yes [facility] LABORATORY Specimen Anatomical Collection Method Collection Time Receive d Time (Source) Location / / Volume Laterality Blood 05/31/2022 1:25 PM 2 1:23 EDT PM EDT Regina Hinsd MD BLOOD BANK ORDERABLES Performing Organization Address [facility] Phon e Number [address] (ABNORMAL) Differential, Automated (05/31/2022 12:44 PM EDT) P athologist Signature Neutrophils % 62.0 % [facility] LABORATORY Neutr Abs (ANC) 4.71 1.70 - [facility] 6.10 [facility] x10(3)/[facility] LABORATORY Lymphocytes % 24.1 % [facility] LABORATORY Lymphocytes Abs 1.8 0.9 - 3.2 [facility] x10(3)/[facility] LABORATORY Monocytes % 10.8 % [facility] LABORATORY Monocyte Abs 0.8 0.3 - 0.9 [facility] x10(3)/[facility] LABORATORY Eosinophils % 1.6 % [facility] Eosinophils Abs 0.1 0.0 - 0.4 [facility] x10(3)/[facility] LABORATORY Basophils % 0.7 % [facility] Basophils Abs 0.0 0.0 - 0.1 [facility] x10(3)/[facility] LABORATORY Immature Gran % 0.80 % [facility] LABORATORY Comment: Immature granulocytes(IG's)percentage an d absolute count will include metamyelocytes, myelocytes, and promyelo cytes. Blood smears from CBCs yielding IG's will be scanned manually for concor dance. If this scan disagrees with the automated IG or if promyelocytes are not ed, a manual differential will be performed. Rain Gran Abs 0.06 (H) 0.00 - 0.04 x10(3)/[facility] LABORATORY Specimen Anatomical Collection Method Collection Time Receive d Time (Source) Location / / Volume Laterality Blood 05/31/2022 12:44 05/31/2022 PM EDT 12:57 PM EDT Resulting Agency Comment Spec In Lab Brittany Ramirez MD HEMATOLOGY ORDERABLES Performing Organization Address City/State/[place] [address] (ABNORMAL) Hemogram (05/31/2022 12:44 PM EDT) Analysis Performed At Patho logist Time Signature WBC 7.6 4.0 - 9.5 [facility] x10(3)/[facility] LABORATORY RBC 2.11 (L) 4.58 - [facility] XIA[facility] 5.54 [facility] x10(6)/[facility] LABORATORY Hemoglobin 6.9 (L) 13.7 - [facility] 16.5 g/dL [facility] LABORATORY Hematocrit 20.8 (L) 40.5 - [facility] 48.5 % [facility] LABORATORY MCV 98.6 (H) 82.9 - [facility] LABORATORY MCH 32.7 (H) 27.5 - [facility] 32.1 pg [facility] LABORATORY MCHC 33.2 32.0 - [facility] 35.7 g/dL [facility] LABORATORY Platelets 255 145 - 357 [facility] x10(3)/[facility] LABORATORY RDWSD 47.7 (H) 36.0 - [facility] 45.0 [facility] LABORATORY RDWCV 13.4 11.4 - [facility] 13.8 % [facility] LABORATORY MPV 10.7 7.6 - 12.9 [facility] LABORATORY nRBC % Auto 0.0 % [facility] LABORATORY nRBC Abs Auto 0.000 0.000 - [facility] 0.000 [facility] x10(3)/[facility] LABORATORY Specimen Anatomical Collection Method Collection Time Receive d Time (Source) Location / / Volume Laterality Blood 05/31/2022 12:44 05/31/2022 PM EDT 12:57 PM EDT Resulting Agency Comment Spec In Lab Brittany Ramirez MD HEMATOLOGY ORDERABLES Performing Organization Address City/State/[place] [address] (ABNORMAL) BLOOD GAS 2 VENOUS (05/31/2022 11:24 AM EDT) P athologist Signature pH [place] 7.38 7.32 - [facility] 7.42 [facility] LABORATORY pCO2 [place] 40 (L) 41 - 51 [facility] LABORATORY pO2 Marco [place] 18 (L) 25 - 40 [facility] LABORATORY HCO3 [place] 23.3 mmol/L [facility] LABORATORY BE Marco Antonio -1.8 mmol/L [facility] LABOR[facility]ORY Hgb Blood Gas 7.0 (L) 13.7 - [facility] 16.5 g/dL [facility] LABORATORY O2HB [place] 24.3 % [facility] LABORATORY COHB [place] 1.4 % [facility] LABORATORY Comment: Nonsmokers: 0.5-1.5% COHB Smokers: Variable, but usually less than 10% Toxic: 20-30% COHB Lethal: Greater than 60% COHB METHB [place] 1.7 (H) <=1.5 % [facility] LABORATORY Na Whole Blood 137 135 - 145 mmol/L [facility] LABORATORY K Whole Blood 3.9 3.5 - 5.0 mmol/L [facility] Comment: Please note: Patients with WBC >100,000 may have falsely elevated Potassium levels. Contact the Clinical Chemistry L aboratory if there are any questions. ICa Whole Blood 1.19 1.15 - 1.33 mmol/L [facility] [...] Lactate WB 1.4 0.5 - 2.2 mmol/L [facility] BGas Source Venous [facility] Specimen Anatomical Collection Method Collection Time Receive d Time (Source) Location / / Volume Laterality Blood 05/31/2022 11:24 05/31/2022 AM EDT 11:24 AM EDT Regina Hinds MD CHEMISTRY ORDERABLES Performing Organization Address City/[facility]/ZIP Code Phon e Number [address] TSH Kerr (05/31/2022 11:20 AM EDT) P athologist Signature TSH 1.67 0.27 - 4.20 [facility] mcIU/mL [facility] Comment: Reference Interval (mcIU/mL): Females: ??First Trimester: 0.23-3.88 ??Second Trimester: 0.22-3.90 ??Third Trimester: 0.44-4.66 Specimen Anatomical Collection Method Collection Time Receive d Time (Source) Location / / Volume Laterality Blood 05/31/2022 11:20 05/31/2022 AM EDT 11:28 AM EDT Resulting Agency Comment Spec In Lab Regina Hinds MD CHEMISTRY ORDERABLES Performing Organization Address City/[facility]/ZIP Code Phon e Number [address] XR Chest PA & [...] who have questions please contact the health senior care assistant that requested your imaging first. ? Electronically signed by: Alan strong MD, [facility] ([phone]), at 05/31/2022 11:33 AM Narrative 05/31/2022 11:33 [...] ho have questions please contact the health senior care assistant that requested your imaging first. Electronically signed by: Alan strong MD, [facility] ([phone]), at 05/31/2022 11:33 AM Regina Hinds MD IMG DX ORDERABLES Lipase (05/31/2022 10:50 AM EDT) athologist Signature Lipase 41 0 - 60 [place] unit/L [facility] Specimen Anatomical Collection Method Collection Time Receive d Time (Source) Location / / Volume Laterality Blood Venous Draw / 05/31/2022 10:50 05/31/2022 Unknown AM EDT 11:11 AM EDT Resulting Agency Comment Spec In Lab Zain Champion MD CHEMISTRY ORDERABLES Performing Organization Address City/State/ZIP Code Phon e Number [place] [phone] (ABNORMAL) Hepatic Function Panel (05/31/2022 10:50 AM EDT) Analysis Performed At Patho logist Time Signature Total Protein 6.4 6.1 - 8.0 [place] g/dL [facility] Albumin 4.1 3.2 - 5.2 [place] g/dL [facility] AST 24 0 - 39 [place] unit/L [facility] ALT 44 0 - 55 [place] unit/L [facility] Alk Phos 63 40 - 130 [place] unit/L [facility] Total <0.2 (L) 0.2 - 1.3 [place] Bilirubin mg/dL [facility] Bili, Direct 0.1 0.0 - 0.3 [place] mg/dL [facility] Specimen Anatomical Collection Method Collection Time Receive d Time (Source) Location / / Volume Laterality Blood Venous Draw / 05/31/2022 10:50 05/31/2022 Unknown AM EDT 11:11 AM EDT Resulting Agency Comment Spec In Lab Zain Champion MD CHEMISTRY ORDERABLES Performing Organization Address City/[facility]/ZIP Code Phon e Number [address] Blue Tube HOLD (05/31/2022 10:50 AM EDT) athologist Signature Blue Hold Sample in [facility] LABORATORY Specimen Anatomical Collection Method Collection Time Receive d Time (Source) Location / / Volume Laterality Blood Venous Draw / 05/31/2022 10:50 05/31/2022 Unknown AM EDT 11:05 AM EDT Brittany Ramirez MD HEMATOLOGY ORDERABLES Performing Organization Address City/[facility]/ZIP Code Phon e Number [address] (ABNORMAL) Differential, Automated (05/31/2022 10:50 AM EDT) athologist Signature Neutrophils % 66.9 % [facility] Neutr Abs (ANC) 5.58 1.70 - [facility] 6.10 [facility] x10(3)/[facility] LABORATORY Lymphocytes % 22.2 % [facility] Lymphocytes Abs 1.8 0.9 - 3.2 [facility] x10(3)/[facility] LABORATORY Monocytes % 7.8 % [facility] Monocyte Abs 0.6 0.3 - 0.9 [facility] x10(3)/[facility] LABORATORY Eosinophils % 1.2 % [facility] Eosinophils Abs 0.1 0.0 - 0.4 [facility] x10(3)/[facility] LABORATORY Basophils % 0.7 % [facility] Basophils Abs 0.1 0.0 - 0.1 [facility] x10(3)/[facility] LABORATORY Immature Gran % 1.20 % [facility] Comment: Immature granulocytes(IG's)percentage an d absolute count will include metamyelocytes, myelocytes, and promyelo cytes. Blood smears from CBCs yielding IG's will be scanned manually for tracy armstrong. If this scan disagrees with the automated IG or if promyelocytes are not ed, a manual differential will be performed. Rain Gran Abs 0.10 (H) 0.00 - 0.04 x10(3)/[facility] LABORATORY Specimen Anatomical Collection Method Collection Time Receive d Time (Source) Location / / Volume Laterality Blood 05/31/2022 10:50 05/31/2022 AM EDT 11:03 AM EDT Resulting Agency Comment Spec In Lab Brittany Ramirez MD HEMATOLOGY ORDERABLES Performing Organization Address City/State/[place] [address] (ABNORMAL) Hemogram (05/31/2022 10:50 AM EDT) Analysis Performed At Patho logist Time Signature WBC 8.3 4.0 - 9.5 [facility] x10(3)/[facility] LABORATORY RBC 2.26 (L) 4.58 - [facility] 5.54 [facility] x10(6)/[facility] LABORATORY Hemoglobin 7.4 (L) 13.7 - [facility] 16.[facility] g/dL [facility] Hematocrit 22.3 (L) 40.5 - [facility] 48.5 % [facility] MCV 98.7 (H) 82.9 - [facility] 93.1 [facility] LABORATORY MCH 32.7 (H) 27.5 - [facility] XIAO 32.1 pg [facility]ATORY MCHC 33.2 32.0 - [facility] XIAO 35.7 g/dL [facility] Platelets 283 145 - 357 [facility] x10(3)/[facility] LABORATORY RDWSD 47.0 (H) 36.0 - [facility] XIAO 45.0 [facility] LABORATORY RDWCV 13.4 11.4 - [facility] XIAO 13.8 % [facility] LABORATORY MPV 10.8 7.6 - 12.9 [facility] LABORATORY nRBC % Auto 0.0 % [facility] nRBC Abs Auto 0.000 0.000 - [facility] 0.000 [facility] x10(3)/[facility] LABORATORY Specimen Anatomical Collection Method Collection Time Receive d Time (Source) Location / / Volume Laterality Blood 05/31/2022 10:50 05/31/2022 AM EDT 11:03 AM EDT Resulting Agency Comment Spec In Lab Brittany Ramirez MD HEMATOLOGY ORDERABLES Performing Organization Address City/State/ZIP Code Phon e Number [address] Phosphorus (05/31/2022 10:50 AM EDT) P athologist Signature Phosphorus 3.2 2.5 - 4.5 [place] mg/dL [facility] Specimen Anatomical Collection Method Collection Time Receive d Time (Source) Location / / Volume Laterality Blood 05/31/2022 10:50 05/31/2022 AM EDT 11:03 AM EDT Resulting Agency Comment Spec In Lab Regina Hinds MD CHEMISTRY ORDERABLES Performing Organization Address City/State/ZIP Code Phon e Number [address] Magnesium (05/31/2022 10:50 AM EDT) P athologist Signature Magnesium 0.93 0.69 - 1.07 [place] mmol/L [facility] Specimen Anatomical Collection Method Collection Time Receive d Time (Source) Location / / Volume Laterality Blood 05/31/2022 10:50 05/31/2022 AM EDT 11:03 AM EDT Resulting Agency Comment Spec In Lab Regina Hinds MD CHEMISTRY ORDERABLES Performing Organization Address City/State/[place] [address] (ABNORMAL) pro-Brain Natriuretic Peptide (05/31/2022 10:50 AM EDT) P athologist Signature ProBNP 1,077 (H) <=449 [place] pg/mL [facility] Specimen Anatomical Collection Method Collection Time Receive d Time (Source) Location / / Volume Laterality Blood 05/31/2022 10:50 05/31/2022 AM EDT 11:03 AM EDT Resulting Agency Comment Spec In Lab Regina Hinds MD CHEMISTRY ORDERABLES Performing Organization Address City/[facility]/[place] [address] Troponin (05/31/2022 10:50 AM EDT) athologist Signature Troponin-T <0.01 0.00 - 0.00 [facility] ng/mL [facility] Comment: The 99th percentile for Troponin T is le ss than 0.01 ng/mL, any detectable cTnT concentration using this assay should be considered elevated. According to the third universal definit ion of myocardial infarction the following criteria with a clinical prese ntation consistent with acute myocardial ischemia meets the diagnosis for a myocardial infarction (CO). Detection of a rise and/or fall of [...] additional sample may be indicated. Reference: Third [place] Definition of Myocardial Infarction. Journal of the [place] [employer] 2012;60:1581-98 Specimen Anatomical Collection Method Collection Time Receive d Time (Source) Location / / Volume Laterality Blood 05/31/2022 10:50 05/31/2022 AM EDT 11:03 AM EDT Resulting Agency Comment Spec In Lab Regina Hinds MD CHEMISTRY ORDERABLES Performing Organization Address City/[facility]/[place] [address] (ABNORMAL) Basic Metabolic Panel (non-fasting) (05/31/2022 10:50 AM EDT) athologist Signature Glucose Lvl 223 (H) 65 - 199 [facility] mg/dL [facility] Comment: Diabetes: >=200 mg/dL plus symp toms BUN 39 (H) 10 - 20 mg/dL [facility] Creatinine 0.91 0.80 - 1.50 mg/dL [facility] Sodium 140 135 - 145 mmol/L [facility] Potassium 4.1 3.5 - 5.0 mmol/L [facility] Comment: Please note: ??Patients [...] Anion Gap 10 5 - 15 mmol/L [facility] Calcium 9.1 8.5 - 10.5 mg/dL [facility] Estimated GFR 86 >=60 mL/min/1.73 m?? [facility] Comment: [...] Organization Address City/State/[place] [address] EKG 12 Lead (05/31/2022 10:11 AM EDT) Component Value Ref Range Test Analysis Performed Pathologis t Method Time At Signature Ventricular rate 106 BPM MUSE SYSTEM QRS Duration 122 ms MUSE SYSTEM Q-T Interval 368 ms MUSE SYSTEM QTC Calculated 488 ms MUSE SYSTEM (Bezet) Calculated R [place] -43 degrees MUSE SYSTEM Calculated T [place] 109 degrees MUSE SYSTEM INTERPRETATION Atrial fibrillation [...] erpretation Confirmed by fellow MD Mike, [place] ([id number]) on 022 8:36:21 PM Confirmed by MD [...] PROTOCOL, Starting on Fri05/31/22 at 2013, Until [place] 06/02/22 at 1702, Per Pro tocol, START [...] CONTINUOUS, Starting on Fri05/31/22 at 2015, Until [place] 06/02/22 at 1702, Begin infusion at 950 [...] 2108 (Given - Provider: Esthela Barbour RN) 08 (Given - Provider: Trinidad [...] (Lidoderm) 5% patch 2 patch(Linked Group 1) 8311 (Patch Applied - Provider: Raven Barbour RN [...] RN)0710 (New Bag - Provider: Raven Barbour RN)7687 (Stopped - Provider: Maranda Ribeiro RN) 0-5,000 [...] - Less than 0.1 international unit/mL: Ad biscuitware brusher 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
Routine documented in this encounter Care Teams Leather Leveler Relationship Specialty Start Date End Date Bobby Das MD PCP - General 10/02/[address] [place] [address] [place] [phone] documented as of this encounter
--- OUTSIDE RECORDS SUMMARY | 2022-07-08 09:50 | XMS_ITS | Encounter Summary ---
:1940 Author Organization [facility] Address [facility] [address] [place] [address] Care Team Providers Name Role Phone Bobby Das MD Primary Care Provider Reason for Visit - Closed Specialty Diagnoses / Procedures Referred By Contact Refer red To Contact Procedures Bobby Das MD Film Library- Storage Only [address] [place] [phone] Referral ID Status Reason Start Date Expiration Date Visits Requ ested Visits Authorized [id number] Closed 02/23/2021 02/23/2022 1 1 Encounter Details Date Type Department Care Team Description 02/20/2021 Ancillary Procedure Radiology Library at Bobby Almaguer MD [address] [id number] [phone] (Rebekah rojas) Social History Tobacco Use Types [...] 08/08/2022 Office Visit Gastroenterology Negra Collins MD [facility] DR GASTROENTEROLOGY DEPT [place], [place] [address] (Wo rk) 09/05/2022 Appointment Cardiology Trinity Reid MD [facility] CARDIOLOGY [place], [place] [address] (Wo rk) 09/05/2022 Office Visit Cardiology Trinity Reid MD [facility] CARDIOLOGY [place], [place] [address] (Wo rk) documented as of [...] Organization Address City/State/ZIP Code Phon e Number [place], [place] documented in this encounter Visit Diagnoses Not on filedocumented in this encounter Care Teams Rfid Specialist Relationship Specialty Start Date End Date Bobby Das MD PCP - General 10/02/[address] [place] [address] [place] [phone] documented as of this encounter
--- OUTSIDE RECORDS SUMMARY | 2022-07-08 09:50 | XMS_ITS | Encounter Summary ---
:1940 Author Organization [facility] [place] [address] Care Team Providers Name Role Phone Bobby Das MD Primary Care Provider Encounter Details Date Type Department Care Team Description 05/15/2022 Ancillary Procedure Radiology Library at [facility], Lavell Butt, [facility] [place] [address] VASCULAR SURGERY [phone] [place] [id number] (Wo rk) Social History Tobacco Use Types [...] 08/08/2022 Office Visit Gastroenterology Negra Collins MD [facility] DR GASTROENTEROLOGY DEPT [place], [place] [address] (Wo rk) 09/05/2022 Appointment Cardiology Trinity Reid MD [facility] CARDIOLOGY [place], [place] [address] (Wo rk) 09/05/2022 Office Visit Cardiology Trinity Reid MD [facility] [place] [address] (Wo rk) documented as [...] Organization Address City/State/ZIP Code Phon e Number [place], [place] documented in this encounter Visit Diagnoses Not on filedocumented in this encounter Care Teams Guest Service Supervisor Relationship Specialty Start Date End Date Bobby Das MD PCP - General 10/02/[address] [place] [address] [place] [phone] documented as of this encounter
--- OUTSIDE RECORDS SUMMARY | 2022-07-08 09:50 | XMS_ITS | Encounter Summary ---
:1940 [place] [address] Care Team Providers Name Role Phone Bobby Das MD Primary Care Provider Encounter Details Date Type Department Care Team Description 02/27/2021 Notes Only Radiology Matt Chisholm MD [facility] [place] [address] DIAGNOSTIC RADIOLOGY [phone] [place] [phone] (Wo rk) Social History Tobacco Use Types [...] MD [facility] DR GASTROENTEROLOGY DEPT [place], [place] [address] (Wo rk) 09/05/2022 Appointment Cardiology Trinity Reid MD [facility] CARDIOLOGY [place], [place] [address] (Wo rk) 09/05/2022 Office Visit Cardiology Trinity Reid MD [facility] CARDIOLOGY [place], [place] [address] (Wo rk) documented as of this encounter Visit Diagnoses Not on filedocumented in this encounter Care Teams Interstate Planner Relationship Specialty Start Date End Date Bobby Das MD PCP - General 10/02/[address] [place] [address] [place] [phone] documented as of this encounter
--- OUTSIDE RECORDS SUMMARY | 2022-07-08 09:50 | XMS_ITS | Encounter Summary ---
:1940 [place] [address] Care Team Providers Name Role Phone Bobby Das MD Primary Care Provider Reason for Visit Reason Comments Left Leg Pain Auth/Cert Specialty Diagnoses / Procedures Referred By Contact Refer red To Contact Diagnoses Limb ischemia LLE thrombus Fito Summers MD [facility] [place] [address] Referral ID Status Reason Start Date Expiration Date Visits Requ ested Visits Authorized [id number] 1 1 Encounter Details Date Type Department Care Team Description 05/20/2022 Surgery Tab Cutter Abundio Mcguire , CARDIAC CATHETERIZATION [facility] [place] [address] CARDIOLOGY [phone] [place], [place] [address] (Wo rk) Social History Tobacco [...] onset Afib who presents in transfer from [facility] with acute limb ischemia of the [...] emergently went to the OR for L BACK TENDER [employer] PRINTING transverse arteriotomy and primary repair, thromboembolectomy of L SFA/PFA/BACK TENDER [employer]ING, reperfusion venous drainage for 250 cc, and [...] Discharge Condition: Good Discharge to: Home with [address] [address] Future Appointments and Orders Future Appointments and Orders Future Appointments Provider Department Dept Phone 05/23/2022 10:30 AM Loretta Cohen MD Dermatology at [facility] Arrive at: Intelligence Officer [address] [place] [address] 06/07/2022 1:30 PM Gail Rae APRN Vascular Surgery at [facility] Arrive at: Intelligence Officer [address] [phone] 06/13/2022 7:30 AM Edson Lagos [place] Vascular Lab at [facility] Arrive at: Intelligence Officer Area 06/13/2022 8:00 AM Fito Summers MD Vascular Surgery at [facility] Arrive at: Intelligence Officer Area 3V [phone] 06/13/2022 10:00 AM Aaln Reid MD Cardiology at [facility] Arrive at: Intelligence Officer Area [phone] Future Orders Complete By Expires Ziopatch 48 Hrs-15 Days [[id number] CPT(R)] 05/21/2022 11/20/2022 Process Instructions: Scheduling Instructions: Comments: Questions: Does the patient have a pacemaker? If yes provide HI/LO settings: Apply for 7 or 14 days?: 7 Where will study be performed?: [facility] JOSSELYN, legs, multiple levels [VAS8 Custom] 06/21/2022 (Approximate) 12/21/2022 Process Instructions: There is no in-house vascular lab asst available on weeknights (5pm-8am), weekends, or holidays. IF THIS IS A REQUEST FOR AN EMERGENT STUDY DURING THOSE HOURS, please have the senior provider responsible for the patient page the Vascular Surgery Fellow/Senior Resident fire information officer to discuss options. Scheduling Instructions: Questions: Indication for study/signs & symptoms: ALI s/p L fem cutdown with thromboembolectomy Question to be answered: Perfusion to feet? Please check toe pressure Preferred location?: [facility] Referral to Cardiology [REF12 Custom] As [...] Zamora for admission to Home Health. [address] [place] [phone] (home) Date of : 1940 Inpatient DOCUMENTATION FOR VNA SERVICES (INCLUDING THOSE PATIENTS WITH MEDICARE COVERAGE REQUIRING HOME VNA SERVICES AND/OR HOSPICE SERVICES) PATIENT'S LOCATION: Koko Zamora [address] [place] [phone] (home) Cell: No relevant phone numbers on file. Labor Employment Associate's Name: Koko In discussion with the attending physician, it is certified that this patient is under their care and that they, or a Nurse Practitioner,Clinical Nurse specialist or Physician Gre Tutor who is working directly with them, had [...] for managing ADL's. HOME HEALTH CARE AGENCY: [facility]. [address] [place] [id number] Start of care: Within 24 to 48 [...] obtained from this patient'sPCP: Bobby Das MD [address] [place] [address] [place] [address] All VNA agencies which cover the [...] For any problems or questions please call [phone] For issues on weeknights after 5pm and weekends please call [phone] and ask for the Vascular Fellow fire information officer. JOSEE Santiago Vascular Surgery 05/21/2022 documented [...] For any problems or questions please call [phone] For issues on weeknights after 5pm and weekends please call [phone] and ask for the Vascular Fellow fire information officer. documented in this encounter Medications at [...] 04/12/20 21 (FLONASE) 50 mcg/actuation Nare route [place], Suspension daily as needed. fluorouraciL (EFUDEX) 5 [...] onset Afib who presents in transfer from [facility] with acute limb ischemia of the [...] status, full code. JOSEE Santiago 05/21/2022 Pager: [phone] Brannon Isaacs, PT - 05/21/2022 10:35 AM [...] plan as stated. Time IN / OUT: 7840-4470 Total Minutes, Physical Therapy: 25 Billing Code: 2 BOSTON Isaacs DPT Pager: [phone] Physical Therapy Inpatient Rehabilitation Department [place] Jean [...] 04/17/2021 in Pain and Spine Center at [facility] Weight 79.8 kg (175 lb 14.8 oz) [...] and plan of care per Dr. Mcnamara (social media marketing analyst). Please refer to her note above for [...] to Hosp-Admission (Current) from 05/15/2022 in [facility] Office Visit from 04/17/2021 in Pain and Spine Center at [facility] Weight 79.8 kg (175 lb 14.8 oz) [...] findings andplan of care per Dr. Mcnamara (social media marketing analyst). Please refer to her note above for [...] a mitral repair in 2000 (not at [facility]) with no CAD at that time. Currently, [...] AF and the first documented HR at [facility] was 125 bpm (presented to an an [...] onset Afib who presents in transfer from [facility] with acute limb ischemia of the [...] management following Dottie Hill APRN 05/20/2022 Pager: [phone] Laney Atkins RN - 05/20/2022 1:14 AM EDT Pt Koko transferred to room from [facility]. A&Ox4, oriented to room and call boo. Masimo and telemetry placed. In agreement with assessment as documented this evening by Nuris ASHLEY. No complaints at this time. Pt aware of NPO status and plan for cardiac cath in AM. Urinal provided. Resting comfortably in bed. Nuris Lester RN - 05/20/2022 1:09 AM EDT Pt. Transferred to [facility]. RN accompanied patient to floor and handed off to [facility] RN Dottie Hill APRN - 05/19/2022 10:02 AM EDT Vascular Surgery Progress Note Koko Zamora is a 81 y.o. male with w new onset Afib who presents in transfer from [facility] with acute limb ischemia of the LLE. ?? The patient had sudden pain starting at 630 05/15/22, he presented [facility] where he was placed on heparin. [...] management following Dottie Hill APRN 05/19/2022 Pager: [phone] Emily Sauceda RN - 05/19/2022 6:28 AM EDT OUTCOME EVALUATION NOTE: OUTCOME SUMMARY: Patient AOx4, VSS on RA. Afib on tele. HR controlled w/ PRN metop, given x2. Denies CP, SOB, n/v. See flowsheets for NVC. Dressings to LLE CDI, prevena WV to groin intact. Voiding to urinal. LBM AUTO PHONE INSTALLER, patient stating he will maybe try the [...] adequately without difficulty to bedside urinal. LBM AUTO PHONE INSTALLER. Up to chair this AM with nursing staff. Worked with PT, tolerated well. Diet changed to regular at 1800.Plan is for cardiac cath on Friday. PLAN MOVING FORWARD: Bleeding precautions Pain management neurovascular checks PT/OT aquatic life laborer INDIVIDUALIZED FALL PREVENTION INTERVENTIONS: Patient-specific fall [...] onset Afib who presents in transfer from [facility] with acute limb ischemia of the [...] mL Intravenous BID ??? PHENobarbitaL 0.12 mg/kg/dose (Dimock) Oral BID ??? thiamine 100 mg Oral [...] management following Dottie Hill APRN 05/18/2022 Pager: [phone] Brannon Isaacs, PT - 05/18/2022 10:00 AM [...] IR Biopsy Spine 07/20/2019 Bobby Marshall MD [facility] INTERVENTIONL RAD ??? IR VERTEBROPLASTY LUMBAR MULTIPLE LEVELS 07/20/2019 IR Vertebroplasty Lumbar Multiple Levels 07/20/2019 Bobby Marshall MD [facility] INTERVENTIONL RAD ??? IR VERTEBROPLASTY THORACIC SINGLE LEVEL 10/25/2020 IR Vertebroplasty Thoracic Single Level 10/25/2020 Matt Chisholm MD [facility] INTERVENTIONL RAD ??? PRO EMBLC/THRMBC FEMORAL POPLITEAL AORTO-ILIAC ARTERY Left 05/15/2022 EMBOLECTOMY OR THROMBECTOMY, FEMOROPOPLITEAL, AORTOILIAC ARTERY BY LEG INCISION (WRVU 19.48) performed by Fito Summers MD at [facility] MAIN OR Social History: Pt lives [...] in this evaluation. Time IN / OUT: 3643-7591 Total Minutes, Physical Therapy: 30 Billing Code: Basilio Isaacs, PT Pager: [phone] Physical Therapy Inpatient Rehabilitation Department Emily Sauceda RN - 05/18/2022 4:34 AM EDT OUTCOME EVALUATION NOTE: OUTCOME SUMMARY: Patient AOx4, VSS on 2LNC. Afib on tele. HR above 120, MD aware, PRN IV metop given x1, HR returned to 90's-low 100's. Denies CP, SOB, n/v. See flowsheets for NVC. Dressings to LLE CDI, prevena WV to groin intact. Voiding to urinal. LBM AUTO PHONE INSTALLER. Heparin gtt therapeutic. Pain controlled. Patient sleeping [...] adequately without difficulty to bedside urinal. LBM AUTO PHONE INSTALLER. Patient not OOB this shift. Currently NPO awaitingprocedure in laborer laboratory. PLAN MOVING FORWARD: Bleeding precautions Pain management neurovascular checks PT/OT NPO for laborer laboratory INDIVIDUALIZED FALL PREVENTION INTERVENTIONS: Patient-specific fall risk [...] the Emergency Department as a transfer from [facility] with left lower extremity limb ischemia. [...] will will be going to the laborer laboratory for evaluation. Will defer PT eval at present but will see as ordered post cardiac catheritizaton. Social Hx:Pt lives with his Ursula in [place], [place] in a 2 level home in [...] WBAT LLE LISBET HERMAN PT Pager # [phone] In-Pt Rehab Medicine Dottie Hill APRN - 05/17/2022 7:42 AM EDT Vascular Surgery Progress Note Koko Zamora is a 81 y.o. male with w new onset Afib who presents in transfer from [facility] with acute limb ischemia of the [...] mL Intravenous BID ??? PHENobarbitaL 0.24 mg/kg/dose (Dimock) Oral BID Followed by ??? [START ON 05/18/2022] PHENobarbitaL 0.12 mg/kg/dose (Dimock) Oral BID ??? thiamine 100 mg Oral [...] management following Dottie Hill APRN 05/17/2022 Pager: [phone] Sary Dos Santos, RN - 05/17/2022 12:16 [...] onset Afib who presents in transfer from [facility] with acute limb ischemia of the [...] mL Intravenous BID ??? PHENobarbitaL 0.48 mg/kg/dose (Dimock) Oral BID Followed by ??? [START ON 05/17/2022] PHENobarbitaL 0.24 mg/kg/dose (Dimock) Oral BID Followed by ??? [START ON 05/18/2022] PHENobarbitaL 0.12 mg/kg/dose (Dimock) Oral BID ??? thiamine 100 mg Oral [...] management following Edward Rodríguez MD 05/16/2022 Pager: [phone] Sary Dos Santos RN - 05/16/2022 12:52 [...] met 2129 Hand off to DION Ramirez trivoli documented in this encounter H&P Notes Kerry [...] onset Afib who presents in transfer from [facility] with acute limb ischemia of the [...] IR Biopsy Spine 07/20/2019 Bobby Marshall MD [facility] INTERVENTIONL RAD ??? IR VERTEBROPLASTY LUMBAR MULTIPLE LEVELS 07/20/2019 IR Vertebroplasty Lumbar Multiple Levels 07/20/2019 Bobby Marshall MD [facility] INTERVENTIONL RAD ??? IR VERTEBROPLASTY THORACIC SINGLE LEVEL 10/25/2020 IR Vertebroplasty Thoracic Single Level 10/25/2020 Matt Chisholm MD [facility] INTERVENTIONL RAD Social Hx: Social History [...] Refill ??? fluticasone propionate (FLONASE) 50 mcg/actuation [place], Suspension as needed. ??? fluorouraciL (EFUDEX) 5 [...] and consented. Tim Chicas MD 05/15/2022 Pager: [phone] documented in this encounter ED Notes Lc [...] his left lower extremity. He went to [facility] and was started on heparin [...] of the left lower extremity. Vascular surgery [facility] was contacted and he was transferred [...] orders before pt. Arrival. Pt. Arrived at [facility] by EMS at 1150, vascular team at [...] in an outpatient cardiac rehabilitation program at [facility] was discussed. Patient agrees to a referral to this program. Timing will depend on his recovery from Vascular surgery. He is going home w/VNA PT. I gave him the brochure for the program at [facility] for future reference. Care Management Discharge [...] information for follow-up Home Health & Hospice, [place] [address] [place] [address] Transportation: family or friend will provide Functional [...] Type: *No Product type* / Secondary Insurance: [facility] Prescription Coverage: Yes This plan was formulated with input from patient and team. All are in agreement with plan. IP RS has communicated with [place] - for initial IMM. Shawn López RN (Jonas) RN/CM - Cellphone: [phone] Pager: [phone] Covering Service RN/CM Plan of Care - [...] catheterization, transferred in hospital bed accompanied by Tab Cutter RN, remains on telemetry monitoring. Heparin gtt [...] Type: *No Product type* / Secondary Insurance: [facility] Last Physical Therapy Recommendation: home with home health, home with supervision with None Last Occupational Therapy Recommendation: with Plan for discharge is: Home w/ Services Outpatient Agency/Support Group Needs: None Home Health Services: Registered Nurse, Physical Therapy, Occupational Therapy Agency Referrals: I have met with the patient to: ?? discuss discharge planning needs. ?? provide the [facility], Office of Care Management letter from the Lithographer Helper pertaining to rehab referrals. ?? provide a letter describing our affiliations within the [facility] and educate about their right to choose where referrals are sent. ?? provide a list of Home Health Agencies / Durable Medical Equipment vendors which serve their preferred geographic area. ?? provided patient with [facility] Star Quality Rating handout. They have requested referrals to: [facility]. [address] [place] [phone] Note routed to a Dining Room Host who will communicate referrals to facilities and [...] of Discharge: 05/21/2022 Nataly RICHMOND RN Phone: [phone] Pager: [phone] Plan of Care - Laney Atkins RN [...] not included. [facility] [place] [address] INPATIENT CARDIOLOGY CONSULT NOTE Date of Consultation: 05/17/2022 Admit Date: 05/15/2022 Hospital Day 2 days Reason for Consult: New afib Active Problems: Active Hospital Problems Diagnosis Limb ischemia Resolved Hospital Problems No resolved problems to display. HPI: Koko Zamora is a 81 y.o. male with a PMHx significant for MVP (s/p MV repair 2000), tobacco use, HLD, who presented to [facility] from OSH on 05/15 with acute limb ischemia of LLE and was found to be in atrial fibrillation. Patient had sudden onset LLE pain on 05/15 and presented to [facility], where he was started on heparin and transferred to [facility]. Upon arrival to [facility], patient was in atrial fib with RVR [...] IR Biopsy Spine 07/20/2019 Bobby Marshall MD [facility] INTERVENTIONL RAD IR VERTEBROPLASTY LUMBAR MULTIPLE LEVELS 07/20/2019 IR Vertebroplasty Lumbar Multiple Levels 07/20/2019 Bobby Marshall MD [facility] INTERVENTIONL RAD IR VERTEBROPLASTY THORACIC SINGLE LEVEL 10/25/2020 IR Vertebroplasty Thoracic Single Level 10/25/2020 Matt Chisholm MD [facility] INTERVENTIONL RAD PRO EMBLC/THRMBC FEMORAL POPLITEAL AORTO-ILIAC ARTERY Left 05/15/2022 EMBOLECTOMY OR THROMBECTOMY, FEMOROPOPLITEAL, AORTOILIAC ARTERY BY LEG INCISION (WRVU 19.48) performed by Fito Summers MD at [facility] MAIN OR Allergies Allergen Reactions Aspirin Other (See Comments) GI bleed Out-Patient Medications: Medications Prior to Admission Medication Sig Dispense Refill Last Dose fluorouraciL (EFUDEX) 5 % Cream daily. CRESTOR 40 mg Tablet Take 40 mg by mouth daily. fluticasone propionate (FLONASE) 50 mcg/actuation [place], Suspension as needed. ascorbic acid, vitamin C, [...] 5 mL Intravenous BID PHENobarbitaL 0.24 mg/kg/dose (Dimock) Oral BID Followed by [START ON 05/18/2022] PHENobarbitaL 0.12 mg/kg/dose (Dimock) Oral BID thiamine 100 mg Oral Daily folic acid 1,000 mcg Oral Daily multivitamin with minerals 1 tablet Oral Daily heparin (porcine) infusion 1,200 Units/hr (05/17/22 0766) Family History: No family history on file. [...] ED to Hosp-Admission (Current) from 05/15/[address] [place] [address] Office Visit from 04/17/2021 in Pain and Spine Center at [facility] Weight 79.8 kg (175 lb 14.8 oz) [...] continue to follow Anne-Marie Larson MD Pager [phone] Clinic: [phone] 05/17/22 6:22 PM Initial Assessments - Ifrah [...] spouse would be surrogate decision maker per [place] surrogate decision making law. (Only good for 180 days) Any patient receiving care at [facility] must abide by [place] law. The hierarchy [...] (i) The agent with financial power of workers compensation defense attorney or a conservator appointed in accordance [...] toilet seat Home Address confirmed as: [address] [place] [phone] Social & Family Supports: All names listed below confirmed with patient as Incorrect. Will notify toni to correct. Wifes address is same as and phone is [phone]. Extended Emergency Contact Information Primary Emergency Contact: Ursula Zamora Address: [address] [place] [address] [address] [place] [address] [facility] Relation: Spouse Current Care Provided by: [...] Type: *No Product type* / Secondary Insurance: [facility] Prescription Coverage: Yes Preferred Pharmacy: [id number] - [place], [place] - [address] [facility] [address] [facility] [place] [address] [facility] - [place], [place] - [address] [facility] [address] [facility] [address] [place] Status: Patient is a : unable to assess Primary Care Provider: Bobby Das MD [phone] Patient/Caregiver Goals of Treatment: to walk again Potential Needs for Transition of Care: none noted per 05/16 IDR Transportation: family will provide Transportation Anticipated: family or friend will provide Concerns to be Addressed: no discharge needs identified Assessment: Patient is admitted to vascular surg service for left lower extremity limb ischemia Plan: Per PT OT recommendations . Has used [facility] in the past. A member of the Care Management team will continue to monitor progress, follow for continuity of care and assist with transition of care planning. Ifrah Bell RN BSN Car Top BolterButton Sewer Hand of Care Management Pager [phone] Brief Op Note - Erin Garza MD - 05/15/2022 5:04 PM EDT Brief Operative Note Patient Name: Koko Zamora : [id number] MR#: [id number] Case Date: 05/15/2022 Surgeon: Surgeon(s) and Role: [...] Garza MD - 05/15/2022 2:08 PM EDT [facility] Operative Note Patient Name: Koko Zamora : [id number] MR#: [id number] Case Date: 05/15/2022 Surgeon: Surgeon(s) and Role: [...] MD [facility] GASTROENTEROLOGY DEPT [place], [place] 0[address] (Wo rk) 09/05/2022 Appointment Cardiology Trinity Reid MD [facility] CARDIOLOGY [place], [place] 0375 (Wo rk) 09/05/2022 Office Visit Cardiology Trinity Reid MD [facility] CARDIOLOGY [place], [place] [address] (Wo rk) Scheduled Referrals Name [...] Component Value Ref Test Analysis Performed At [facility] Range Method Time Signature VB Text Department: Vascular Surgery Lab VASCUBASE Report Patient: [id number] (KOKO ZAMORA) CPT: 15399 Referring Physician: FITO SUMMERS ?? Phone: Indications: s/p L BACK TENDER [employer]OTH PRINTING endart. Diabetes mellitus: no Findings: Right ?Pressure [...] P athologist Signature Heparin UFH 0.42 IU/mL [facility] LABORATORY Comment: Heparin (anti-Xa) levels should be [...] Organization Address City/State/ZIP Code Phon e Number [place] [id number] Differential, Automated (05/21/2022 6:15 AM EDT) P athologist Signature Neutrophils % 58.8 % [facility] LABORATORY Neutr Abs (ANC) 3.97 1.70 - [facility] 6.10 [facility] x10(3)/[facility] LABORATORY Lymphocytes % 25.2 % [facility] LABORATORY Lymphocytes Abs 1.7 0.9 - 3.2 [facility] x10(3)/[facility] LABORATORY Monocytes % 12.9 % [facility] LABORATORY Monocyte Abs 0.9 0.3 - 0.9 [facility] x10(3)/[facility] LABORATORY Eosinophils % 2.1 % [facility] LABORATORY Eosinophils Abs 0.1 0.0 - 0.4 [facility] x10(3)/[facility] LABORATORY Basophils % 0.4 % [facility] LABORATORY Basophils Abs 0.0 0.0 - 0.1 [facility] x10(3)/[facility] LABORATORY Immature Gran % 0.60 % [facility] LABORATORY Comment: Immature granulocytes(IG's)percentage an d absolute count will include metamyelocytes, myelocytes, and promyelo cytes. Blood smears from CBCs yielding IG's will be scanned manually for concor dance. If this scan disagrees with the automated IG or if promyelocytes are not ed, a manual differential will be performed. Rain Gran Abs 0.04 0.00 - 0.04 x10(3)/[facility] MAR Y [facility] LABORATORY Specimen Anatomical Collection Method Collection Time Receive d Time (Source) Location / / Volume Laterality Blood 05/21/2022 6:15 AM 2 6:38 EDT AM EDT Resulting Agency Comment Spec In Lab Edward Rodríguez MD HEMATOLOGY ORDERABLES Performing Organization Address City/State/[place] [address] (ABNORMAL) Hemogram (05/21/2022 6:15 AM EDT) [facility] gist Method Time Signature WBC 6.8 4.0 - 9.5 [facility] x10(3)/[facility] LABORATORY RBC 3.59 (L) 4.58 - [facility] 5.54 [facility] x10(6)/[facility] LABORATORY Hemoglobin 11.8 (L) 13.7 - [facility] 16.5 g/dL [facility] LABORATORY Hematocrit 34.5 (L) 40.5 - [facility] 48.5 % [facility] LABORATORY MCV 96.1 (H) 82.9 - [facility] 93.1 [facility] LABORATORY MCH 32.9 (H) 27.5 - [facility] 32.1 pg [facility] LABORATORY MCHC 34.2 32.0 - [facility] 35.[facility] g/dL [facility] LABOR[facility]ORY Platelets 198 145 - 357 [facility] x10(3)/[facility] LABORATORY RDWSD 44.9 36.0 - [facility] 45.0 [facility] LABORATORY RDWCV 12.6 11.4 - [facility] 13.8 % [facility] LABORATORY MPV 10.0 7.6 - 12.9 [facility] LABORATORY nRBC % Auto 0.3 % [facility] LABORATORY nRBC Abs Auto 0.020 (H) 0.000 - [facility] 0.000 [facility] x10(3)/[facility] LABORATORY Specimen Anatomical Collection Method Collection Time Receive d Time (Source) Location / / Volume Laterality Blood 05/21/2022 6:15 AM 2 6:38 EDT AM EDT Resulting Agency Comment Spec In Lab Edward Rodríguez MD HEMATOLOGY ORDERABLES Performing Organization Address City/State/[place] [address] EKG 12 Lead (05/20/2022 7:04 PM EDT) Component Value Ref Range Test Analysis Performed Pathologis t Method Time At Signature Ventricular rate 101 BPM MUSE SYSTEM QRS Duration 116 ms MUSE SYSTEM Q-T Interval 378 ms MUSE SYSTEM QTC Calculated 490 ms MUSE SYSTEM (Bezet) Calculated R [place] -53 degrees MUSE SYSTEM Calculated T [place] 101 degrees MUSE SYSTEM INTERPRETATION Atrial fibrillation [...] SYSTEM - 05/20/2022 7:09 PM ED T ?[facility] ? Cardiac Cathete rization/Intervention Report ? Patient Name: Sera Koko Sullivan. ? Procedure Date: 05/20/2022 ? A #: [id number] ? Primary Physician: Abundio Servin ? Case #: [id number] ? File Name: [id number] ? Catheterization Order Number: [id number] ? [facility] ? Final Report [place], [place] ? Patient Name: ? Koko J. Klarissa uson ? ID#: ?[id number] ? : ?1940 ? Procedure Date: ? [...] was Urgent. The indication for ?the laborer laboratory visit is cardiomyo nita. Chest pain symptom [...] ?3.5 guiding catheter and a 3.5 Fr [facility] [address] ??20 Mhz. ??Imaging ?was successful. ??Image [...] premounted 2. 75 x 30 mm Rudy Marquette (AMPARO) was deployed ? with a maximum [...] require ?modification of this regimen. C onsult [facility] for ?questions. ?The 1 year [...] 123 65 - 199 IFRAH XIAO mg/dL [facility] Comment: Supplemental ranges: <140 mg/dL before meals <180 mg/dL all other times of the day Specimen Anatomical Collection Method Collection Time Receive d Time (Source) Location / / Volume Laterality Blood 05/20/2022 5:42 PM 5:42 EDT PM EDT Fito Summers MD POINT OF CARE TEST ORDERABLE S Performing Organization Address City/[facility]/ZIP [place] [address] (ABNORMAL) BMP w/fasting Glucose (05/20/2022 10:50 AM EDT) P athologist Signature Glucose 152 (H) 65 - 99 [employer] Fasting mg/dL [facility] Comment: ?Fasting* Glucose Interpretive C [...] of Diabetes Mellitus, Position Statement from the [place] [employer]. ??Diabete s Care, Volume 33, [...] estions. Chloride 103 98 - 107 mmol/L [facility] CO2 24 22 - 31 mmol/L [facility] Anion Gap 10 5 - 15 mmol/L [facility] Calcium 8.7 8.5 - 10.5 mg/dL [facility] LABORATORY Estimated GFR 97 >=60 mL/min/1.73 m?? [facility] Comment: This patient's estimated [...] Organization Address City/State/[place] [address] Heparin (unfractionated) Level (05/20/2022 5:02 AM EDT) P athologist Signature Heparin UFH 0.57 IU/mL [facility] LABORATORY Comment: Heparin (anti-Xa) levels should be [...] Organization Address City/State/[place] [address] (ABNORMAL) Differential, Automated (05/20/2022 5:02 AM EDT) [facility] gist Method Time Signature Neutrophils % 58.1 % [facility] Neutr Abs (ANC) 4.52 1.70 - [facility] 6.10 [facility] x10(3)/[facility] LABORATORY Lymphocytes % 24.1 % [facility] Lymphocytes Abs 1.9 0.9 - 3.2 [facility] x10(3)/[facility] LABORATORY Monocytes % 13.8 % [facility] Monocyte Abs 1.1 (H) 0.3 - 0.9 [facility] x10(3)/[facility] LABORATORY Eosinophils % 2.6 % [facility] Eosinophils Abs 0.2 0.0 - 0.4 [facility] x10(3)/[facility] LABORATORY Basophils % 0.8 % [facility] Basophils Abs 0.1 0.0 - 0.1 [facility] x10(3)/[facility] LABORATORY Immature Gran % 0.60 % [facility] Comment: Immature granulocytes(IG's)percentage an d absolute count will include metamyelocytes, myelocytes, and promyelo cytes. Blood smears from CBCs yielding IG's will be scanned manually for tracy armstrong. If this scan disagrees with the automated IG or if promyelocytes are not ed, a manual differential will be performed. Rain Gran Abs 0.05 (H) 0.00 - 0.04 x10(3)/[facility] LABORATORY Specimen Anatomical Collection Method Collection Time Receive d Time (Source) Location / / Volume Laterality Blood 05/20/2022 5:02 AM 5:19 EDT AM EDT Resulting Agency Comment Spec In Lab Edward Rodríguez MD HEMATOLOGY ORDERABLES Performing Organization Address City/State/ZIP Code Phon e Number [place] [id number] [address] Drive (ABNORMAL) Hemogram (05/20/2022 5:02 AM EDT) Analysis Performed At Patho logist Time Signature WBC 7.8 4.0 - 9.[address] [address] [facility] x[facility](3[facility] LABORATORY RBC 3.53 (L) 4.58 - [facility] XIAO 5.54 [facility] x10(6)/[facility] LABORATORY Hemoglobin 11.4 (L) 13.7 - [facility] 16.5 g/dL [facility] Hematocrit 34.3 (L) 40.5 - [facility] XIAO 48.5 % [facility]ORY MCV 97.2 (H) 82.9 - [facility] X[facility]O 93.1 [facility] LABORATORY MCH 32.3 (H) 27.5 - [facility] XIAO 32.1 pg [facility] MCHC 33.2 32.0 - [facility] X[facility]O 35.7 g/dL [facility] Platelets 181 145 - 357 [facility] LABORATORY RDWSD 46.4 (H) 36.0 - [facility] XIAO 45.0 [facility] LABORATORY RDWCV 13.0 11.4 - [facility] 13.8 % [facility] LABORATORY MPV 10.4 7.6 - 12.9 [facility] nRBC % Auto 0.0 % [facility] nRBC Abs Auto 0.000 0.000 - [facility]LEYX[facility]O 0.000 [facility] x10(3)/[facility] LABORATORY Specimen Anatomical Collection Method Collection Time Receive d Time (Source) Location / / Volume Laterality Blood 05/20/2022 5:02 AM 2 5:19 EDT AM EDT Resulting Agency Comment Spec In Lab Edward Rodríguez MD HEMATOLOGY ORDERABLES Performing Organization Address City/[facility]/ZIP Code Phon e Number [address] Heparin (unfractionated) Level (05/19/2022 3:26 AM EDT) P athologist Signature Heparin UFH 0.59 IU/mL [facility] LABORATORY Comment: Heparin (anti-Xa) levels should be [...] Organization Address City/State/ZIP Code Phon e Number [address] (ABNORMAL) Differential, Automated (05/19/2022 3:26 AM EDT) Patholo gist Method Time Signature Neutrophils % 62.1 % [facility] Neutr Abs (ANC) 4.59 1.70 - [facility] 6.10 [facility] x10(3)/[facility] LABORATORY Lymphocytes % 22.1 % [facility] Lymphocytes Abs 1.6 0.9 - 3.2 [facility] x10(3)/[facility] LABORATORY Monocytes % 13.5 % [facility] Monocyte Abs 1.0 (H) 0.3 - 0.9 [facility] x10(3)/[facility] LABORATORY Eosinophils % 1.3 % [facility] Eosinophils Abs 0.1 0.0 - 0.4 [facility] x10(3)/[facility] LABORATORY Basophils % 0.5 % [facility] Basophils Abs 0.0 0.0 - 0.1 [facility] x10(3)/[facility] LABORATORY Immature Gran % 0.50 % [facility] Comment: Immature granulocytes(IG's)percentage an d absolute count will include metamyelocytes, myelocytes, and promyelo cytes. Blood smears from CBCs yielding IG's will be scanned manually for concor dance. If this scan disagrees with the automated IG or if promyelocytes are not ed, a manual differential will be performed. Rain Gran Abs 0.04 0.00 - 0.04 x10(3)/[facility] MAR Y [facility] LABORATORY Specimen Anatomical Collection Method Collection Time Receive d Time (Source) Location / / Volume Laterality Blood 05/19/2022 3:26 AM 2 3:59 EDT AM EDT Resulting Agency Comment Spec In Lab Edward Rodríguez MD HEMATOLOGY ORDERABLES Performing Organization Address City/State/[place] [address] (ABNORMAL) Hemogram (05/19/2022 3:26 AM EDT) Analysis Performed At Patho logist Time Signature WBC 7.4 4.0 - 9.5 [facility] x10(3)/[facility] LABORATORY RBC 3.74 (L) 4.58 - [facility] 5.54 [facility] x10(6)/[facility] LABORATORY Hemoglobin 12.1 (L) 13.7 - [facility] 16.5 g/dL [facility] Hematocrit 36.4 (L) 40.5 - [facility] HAGEN 48.5 % [facility] LABORATORY MCV 97.3 (H) 82.9 - IF[facility]H POWELLCK 93.1 [facility] LABORATORY MCH 32.4 (H) 27.5 - [facility] ONEILCOCK 32.1 pg [facility] LABORATORY MCHC 33.2 32.0 - [facility] ONEILCOCK 35.7 g/dL [facility]ORATORY Platelets 168 145 - 357 IFRA[facility] WHEATLEYXIAO x10(3)/[facility] LABORATORY RDWSD 46.9 (H) 36.0 - [facility] HAGEN 45.0 [facility] LABORATORY RDWCV 13.0 11.4 - IFRA[facility] HAGEN 13.8 % [facility] LABORATORY MPV 10.5 7.6 - 12.9 IFRAH HAGEN [facility] LABORATORY nRBC % Auto 0.0 % [facility] nRBC Abs Auto 0.000 0.000 - [facility] HAGEN 0.000 [facility] x10(3)/[facility] LABORATORY Specimen Anatomical Collection Method Collection Time Receive d Time (Source) Location / / Volume Laterality Blood 05/19/2022 3:26 AM 2 3:59 EDT AM EDT Resulting Agency Comment Spec In Lab Edward Rodríguez MD HEMATOLOGY ORDERABLES Performing Organization Address City/[facility]/[place] [address] TSH (05/18/2022 8:00 PM EDT) P athologist Signature TSH 2.27 0.27 - 4.20 IFRA[facility] HAGEN mcIU/mL [facility] Comment: Reference Interval (mcIU/mL): Females: ??First Trimester: 0.23-3.88 ??Second Trimester: 0.22-3.90 ??Third Trimester: 0.44-4.66 Specimen Anatomical Collection Method Collection Time Receive d Time (Source) Location / / Volume Laterality Blood 05/18/2022 8:00 PM 2 8:06 EDT PM EDT Resulting Agency Comment Spec In Lab Fito Summers MD CHEMISTRY ORDERABLES Performing Organization Address City/State/ZIP [place] [address] (ABNORMAL) Differential, Automated (05/18/2022 3:34 AM EDT) [facility] gist Method Time Signature Neutrophils % 67.2 % [facility] Neutr Abs (ANC) 5.89 1.70 - [facility] 6.10 [facility] x10(3)/[facility] LABORATORY Lymphocytes % 17.1 % [facility] Lymphocytes Abs 1.5 0.9 - 3.2 [facility] x10(3)/[facility] LABORATORY Monocytes % 13.6 % [facility] Monocyte Abs 1.2 (H) 0.3 - 0.9 [facility] x10(3)/[facility] LABORATORY Eosinophils % 1.0 % [facility] Eosinophils Abs 0.1 0.0 - 0.4 [facility] x10(3)/[facility] LABORATORY Basophils % 0.6 % [facility] Basophils Abs 0.0 0.0 - 0.1 [facility] x10(3)/[facility] LABORATORY Immature Gran % 0.50 % [facility] Comment: Immature granulocytes(IG's)percentage an d absolute count will include metamyelocytes, myelocytes, and promyelo cytes. Blood smears from CBCs yielding IG's will be scanned manually for concor dance. If this scan disagrees with the automated IG or if promyelocytes are not ed, a manual differential will be performed. Rani Gran Abs 0.04 0.00 - 0.04 x10(3)/[facility] MAR Y [facility] LABORATORY Specimen Anatomical Collection Method Collection Time Receive d Time (Source) Location / / Volume Laterality Blood 05/18/2022 3:34 AM 3:48 EDT AM EDT Resulting Agency Comment Spec In Lab Edward Rodríguez MD HEMATOLOGY ORDERABLES Performing Organization Address City/State/ZIP Code Phon e Number [place] [id number] [address] Drive (ABNORMAL) Hemogram (05/18/2022 3:34 AM EDT) Analysis Performed At Patho logist Time Signature WBC 8.8 4.0 - 9.5 [facility] x10(3)/[facility] LABORATORY RBC 3.45 (L) 4.58 - [facility] 5.54 [facility] x10(6)/[facility] LABORATORY Hemoglobin 11.2 (L) 13.7 - [facility] 16.5 g/dL [facility] Hematocrit 33.0 (L) 40.5 - [facility] 48.5 % [facility] MCV 95.7 (H) 82.9 - [facility] 93.1 [facility] LABORATORY MCH 32.5 (H) 27.5 - [facility] 32.1 pg [facility] LAB[facility]ATORY MCHC 33.9 32.0 - [facility] 35.7 g/dL [facility] Platelets 130 (L) 145 - 357 [facility] x10(3)/[facility] LABORATORY RDWSD 46.2 (H) 36.0 - [facility] 45.0 [facility] LABORATORY RDWCV 13.2 11.4 - [facility] 13.8 % [facility] LABORATORY MPV 10.8 7.6 - 12.9 [facility] LABORATORY nRBC % Auto 0.0 % [facility] nRBC Abs Auto 0.000 0.000 - [facility] 0.000 [facility] x10(3)/[facility] LABORATORY Specimen Anatomical Collection Method Collection Time Receive d Time (Source) Location / / Volume Laterality Blood 05/18/2022 3:34 AM 3:48 EDT AM EDT Resulting Agency Comment Spec In Lab Edward Rodríguez MD HEMATOLOGY ORDERABLES Performing Organization Address City/State/[place] [address] Heparin (unfractionated) Level (05/18/2022 3:34 AM EDT) P athologist Signature Heparin UFH 0.59 IU/mL [facility] LABORATORY Comment: Heparin (anti-Xa) levels should be [...] Address City/[facility]/ZIP Code Phon e Number [address] Magnesium (05/17/2022 3:33 AM EDT) athologist Signature Magnesium 0.76 0.69 - 1.07 [facility] mmol/L [facility] LABORATORY Specimen Anatomical Collection Method Collection Time Receive d Time (Source) Location / / Volume Laterality Blood Venous Draw / 05/17/2022 3:33 AM 05/17/20 22 4:05 Unknown EDT AM EDT Resulting Agency Comment Spec In Lab Dottie Hill APRN CHEMISTRY ORDERABLES Performing Organization Address City/[facility]/ZIP [place] [address] (ABNORMAL) Basic Metabolic Panel (non-fasting) (05/17/2022 3:33 AM EDT) athologist Signature Glucose Lvl 158 65 - 199 [facility] mg/dL [facility] Comment: Diabetes: >=200 mg/dL plus symp toms BUN 12 10 - 20 mg/dL [facility] LABOR[facility]ORY Creatinine 0.74 (L) 0.80 - 1.50 mg/dL [facility] LABORATORY Sodium 137 135 - 145 mmol/L [facility] LABORATORY Potassium 3.5 3.5 - 5.0 mmol/L [facility] LABORATORY Comment: Please note: ??Patients with WBC >100,00 0 may have falsely elevated Potassium levels. ??For accurate Potassium quantif ication in these patients send serum separator tube (gold top) for subsequent determinations. ??Contact the Clinical Chemistry Laboratory if there are any qu estions. Chloride 102 98 - 107 mmol/L [facility] CO2 25 22 - 31 mmol/L [facility] Anion Gap 10 5 - 15 mmol/L [facility] Calcium 8.4 (L) 8.5 - 10.5 mg/dL [facility] LABORATORY Estimated GFR 92 >=60 mL/min/1.73 m?? [facility] Comment: This patient's estimated [...] Organization Address City/State/[place] [address] (ABNORMAL) Differential, Automated (05/17/2022 3:33 AM EDT) [facility] Method Time Signature Neutrophils % 65.5 % [facility] Neutr Abs (ANC) 6.84 (H) 1.70 - [facility] 6.10 [facility] x10(3)/[facility] L LABORATORY Lymphocytes % 19.7 % [facility] Lymphocytes Abs 2.1 0.9 - 3.2 [facility] x10(3)/[facility] LABORATORY Monocytes % 13.1 % [facility] Monocyte Abs 1.4 (H) 0.3 - 0.9 [facility] x10(3)/[facility] LABORATORY Eosinophils % 0.6 % [facility] Eosinophils Abs 0.1 0.0 - 0.4 [facility] x10(3)/[facility] LABORATORY Basophils % 0.6 % [facility] Basophils Abs 0.1 0.0 - 0.1 [facility] x10(3)/[facility] LABORATORY Immature Gran % 0.50 % [facility] Comment: Immature granulocytes(IG's)percentage an d absolute count will include metamyelocytes, myelocytes, and promyelo cytes. Blood smears from CBCs yielding IG's will be scanned manually for concor dance. If this scan disagrees with the automated IG or if promyelocytes are not ed, a manual differential will be performed. Rain Gran Abs 0.05 (H) 0.00 - 0.04 x10(3)/[facility] LABORATORY Specimen Anatomical Collection Method Collection Time Receive d Time (Source) Location / / Volume Laterality Blood 05/17/2022 3:33 AM 3:53 EDT AM EDT Resulting Agency Comment Spec In Lab Edward Rodríguez MD HEMATOLOGY ORDERABLES Performing Organization Address City/State/[place] [address] (ABNORMAL) Hemogram (05/17/2022 3:33 AM EDT) Analysis Performed At Patho logist Time Signature WBC 10.4 (H) 4.0 - 9.5 [facility] x10(3)/[facility] LABORATORY RBC 3.72 (L) 4.58 - [facility] 5.54 [facility] x10(6)/[facility] LABORATORY Hemoglobin 12.0 (L) 13.7 - [facility] 16.5 g/dL [facility] LABOR[facility]ORY Hematocrit 36.4 (L) 40.5 - [facility] 48.5 % [facility] LABORATORY MCV 97.8 (H) 82.9 - [facility] XIAO 93.1 [facility] LABORATORY MCH 32.3 (H) 27.5 - [facility] 32.1 pg [facility] LABORATORY MCHC 33.0 32.0 - [facility] 35.7 g/dL [facility] LABORATORY Platelets 149 145 - 357 [facility] x10(3)/[facility] LABORATORY RDWSD 48.7 (H) 36.0 - [facility] ONE[place]COCK 45.0 [facility] LABORATORY RDWCV 13.5 11.4 - [facility] 13.8 % [facility] LABORATORY MPV 10.6 7.6 - 12.9 [facility] LABORATORY nRBC % Auto 0.0 % [facility] nRBC Abs Auto 0.000 0.000 - [facility] 0.000 [facility] x10(3)/[facility] LABORATORY Specimen Anatomical Collection Method Collection Time Receive d Time (Source) Location / / Volume Laterality Blood 05/17/2022 3:33 AM 3:53 EDT AM EDT Resulting Agency Comment Spec In Lab Edward Rodríguez MD HEMATOLOGY ORDERABLES Performing Organization Address City/State/ZIP [place] [address] (ABNORMAL) Urinalysis Microscopic Exam (05/16/2022 11:15 PM EDT) P athologist Signature RBC UA 8 (H) 0 - 3 /HPF [facility] WBC UA 2 0 - 3 /HPF [facility] Specimen Anatomical Collection Method Collection Time Receive d Time (Source) Location / / Volume Laterality Clean Catch 05/16/2022 11:15 05/16/2022 Urine PM EDT 11:30 PM EDT Resulting Agency Comment Spec In Lab Barbie Ashraf MD URINE ORDERABLES Performing Organization Address City/State/ZIP [place] [address] (ABNORMAL) Urinalysis with reflex Culture (05/16/2022 11:15 PM EDT) Patholo gist Method Time Signature Glucose UA Negative Negative [facility] mg/dL [facility]ORY Protein UA Negative Negative [facility] mg/dL [facility] LABORATORY Bilirubin UA Negative Negative [facility] mg/dL [facility] LABORATORY Comment: Clinical correlation required [...] LABORATORY Blood UA Small (A) Negative mg/dL [facility] Ketones UA Trace (A) Negative mg/dL [facility]ORY Nitrite UA Negative Negative [facility] Leukocytes UA Negative Negative [facility] LABORATORY Appearance UA Clear Clear [facility] LABORATORY Spec Almond UA 1.021 1.005 - 1.030 [facility] LABORATORY Color UA Yellow Yellow [facility] LABORATORY Culture Reflexed No [facility] LABORATORY Specimen Anatomical Collection Method Collection Time Receive d Time (Source) Location / / Volume Laterality Clean Catch 05/16/2022 11:15 05/16/2022 Urine PM EDT 11:30 PM EDT Resulting Agency Comment Spec In Lab Fito Summers MD URINE ORDERABLES Performing Organization Address City/State/[place] [address] Heparin (unfractionated) Level (05/16/2022 10:59 PM EDT) P athologist Signature Heparin UFH 0.65 IU/mL [facility] LABORATORY Comment: Specimen drawn more than one [...] Organization Address City/State/ZIP Code Phon e Number [place] [id number] LABOR[address]ORY Drive XR Chest One View [...] who have questions please contact the health wound care physician that requested your imaging first. ? Narrative [...] ho have questions please contact the health wound care physician that requested your imaging first. Electronically signed by: Tiffanie George MD , [facility] ([phone]), at 05/16/2022 9:27 PM Fito Summers MD IMG DX ORDERABLES EKG 12 Lead (05/16/2022 8:57 PM EDT) Component Value Ref Range Test Analysis Performed Pathologis t Method Time At Signature Ventricular rate 117 BPM MUSE SYSTEM QRS Duration 112 ms MUSE SYSTEM Q-T Interval 346 ms MUSE SYSTEM QTC Calculated 482 ms MUSE SYSTEM (Bezet) Calculated R [place] -48 degrees MUSE SYSTEM Calculated T [place] 111 degrees MUSE SYSTEM INTERPRETATION Atrial fibrillation [...] Address City/[facility]/ZIP Code Phon e Number MUSE SYSTEM Heparin (unfractionated) Level (05/16/2022 4:34 PM EDT) P athologist Signature Heparin UFH 0.53 IU/mL [facility] LABORATORY Comment: Heparin (anti-Xa) levels should be [...] Address City/[facility]/[place] [address] ECHOCARDIOGRAM COMPLETE W CONTRAST (05/16/2022 12:49 PM EDT) athologist Signature EF 28 HEARTLAB SYSTEM Specimen (Source) Anatomical Collection Method Collection Time Re ceived Time Location / / Volume Laterality 05/16/2022 11:22 AM EDT Narrative HEARTLAB SYSTEM - 05/16/2022 1:54 PM EDT ?[facility] ? [facility] ?[address] ? [place] [address] ?Voice: ?Fax: ? Echocardiogram Report Name: KOKO ZAMORA ?Study Date: 05/16/2022 11:22 AM ? Patient Location: 3WST 0303 B : 1940 ? Height: 67.5 in ? Account: [id number] Age: 81 yrs ? Weight: 176 lb Gender: Male ?BSA: 1.9 m2 Ordering Physician: FITO SUMMERS Referring Physician: MALI FLORIAN Performed By: Jolene Bernard [facility] Exam Location: [facility]. Interpretation Summary Left ventricle is [...] and LV systolic dysfunction are new. Procedure Complete-[id number]. Image enhancement Optiso n was used for [...] [facility] [address] [place] [address] Voice: Fax: Echocardiogram Report Name: KOKO ZAMORA Study Date: 05/2022 11:22 AM Patient Location: [address] [place] [address] : 1940 Height: 67.5 in Account: [id number] Age: 81 yrs Weight: 176 lb Gender: Male BSA: 1.9 m2 Ordering Physician: FITO SUMMERS Referring Physician: MALI FLORIAN Performed By: Jolene Bernard RDCS Exam Location: [facility]. Interpretation Summary Left ventricle is [...] and LV systolic dysfunction are new. Procedure Complete-[id number]. Image enhancement Optiso n was used for [...] (ABNORMAL) Differential, Automated (05/16/2022 3:01 AM EDT) [facility] gist Method Time Signature Neutrophils % 78.8 % [facility] Neutr Abs (ANC) 9.11 (H) 1.70 - [facility] 6.10 [facility] x10(3)/[facility] L LABORATORY Lymphocytes % 9.4 % [facility] Lymphocytes Abs 1.1 0.9 - 3.2 [facility] x10(3)/[facility] LABORATORY Monocytes % 10.9 % [facility] Monocyte Abs 1.3 (H) 0.3 - 0.9 [facility] x10(3)/[facility] LABORATORY Eosinophils % 0.0 % [facility] Eosinophils Abs 0.0 0.0 - 0.4 [facility] x10(3)/[facility] LABORATORY Basophils % 0.3 % [facility] Basophils Abs 0.0 0.0 - 0.1 [facility] x10(3)/[facility] LABORATORY Immature Gran % 0.60 % [facility] Comment: Immature granulocytes(IG's)percentage an d absolute count will include metamyelocytes, myelocytes, and promyelo cytes. Blood smears from CBCs yielding IG's will be scanned manually for concor dance. If this scan disagrees with the automated IG or if promyelocytes are not ed, a manual differential will be performed. Rain Gran Abs 0.07 (H) 0.00 - 0.04 x10(3)/[facility] LABORATORY Specimen Anatomical Collection Method Collection Time Receive d Time (Source) Location / / Volume Laterality Blood 05/16/2022 3:01 AM 2 3:36 EDT AM EDT Resulting Agency Comment Spec In Lab Erin Garza MD HEMATOLOGY ORDERABLES Performing Organization Address City/State/[place] [address] (ABNORMAL) Hemogram (05/16/2022 3:01 AM EDT) Analysis Performed At Patho logist Time Signature WBC 11.6 (H) 4.0 - 9.5 [facility] x10(3)/[facility] LABORATORY RBC 3.62 (L) 4.58 - [facility] 5.54 [facility] x10(6)/[facility] LABORATORY Hemoglobin 12.0 (L) 13.7 - [facility] 16.5 g/dL [facility]ORATORY Hematocrit 35.3 (L) 40.5 - [facility] 48.5 % [facility] LABORATORY MCV 97.5 (H) 82.9 - [facility] 93.1 [facility] LABORATORY MCH 33.1 (H) 27.5 - [facility] 32.1 pg [facility] LABORATORY MCHC 34.0 32.0 - [facility] 35.7 g/dL [facility] LABORATORY Platelets 151 145 - 357 [facility] x10(3)/[facility] LABORATORY RDWSD 47.6 (H) 36.0 - [facility] 45.0 [facility] RDWCV 13.3 11.4 - [facility] 13.8 % [facility] LABORATORY MPV 10.5 7.6 - 12.9 [facility] LABORATORY nRBC % Auto 0.0 % [facility] nRBC Abs Auto 0.000 0.000 - [facility] 0.000 [facility] x10(3)/[facility] LABORATORY Specimen Anatomical Collection Method Collection Time Receive d Time (Source) Location / / Volume Laterality Blood 05/16/2022 3:01 AM 2 3:36 EDT AM EDT Resulting Agency Comment Spec In Lab Erin Garza MD HEMATOLOGY ORDERABLES Performing Organization Address City/[facility]/ZIP Code Phon e Number [address] Phosphorus (05/16/2022 3:01 AM EDT) athologist Signature Phosphorus 3.7 2.5 - 4.[address] [facility] [address] mg/dL [facility] LABORATORY Specimen Anatomical Collection Method Collection Time Receive d Time (Source) Location / / Volume Laterality Blood 05/16/2022 3:01 AM 2 3:36 EDT AM EDT Resulting Agency Comment Spec In Lab Fito Summers MD CHEMISTRY ORDERABLES Performing Organization Address City/[facility]/ZIP Code Phon e Number [address] Magnesium (05/16/2022 3:01 AM EDT) athologist Signature Magnesium 0.77 0.69 - 1.[address] [address] [facility] mmol/L [facility] LABORATORY Specimen Anatomical Collection Method Collection Time Receive d Time (Source) Location / / Volume Laterality Blood 05/16/2022 3:01 AM 2 3:36 EDT AM EDT Resulting Agency Comment Spec In Lab Fito Summers MD CHEMISTRY ORDERABLES Performing Organization Address City/[facility]/ZIP Code Phon e Number [address] (ABNORMAL) Basic Metabolic Panel (non-fasting) (05/16/2022 3:01 AM EDT) athologist Signature Glucose Lvl 222 (H) 65 - [address] [address] [facility] mg/dL [facility] LABORATORY Comment: Diabetes: >=200 mg/dL plus symp toms BUN 12 10 - 20 mg/dL [facility] LABORATORY Creatinine 0.66 (L) 0.80 - 1.50 mg/dL [facility] LABORATORY Sodium 138 135 - 145 mmol/L [facility] LABORATORY Potassium 4.5 3.5 - 5.0 mmol/L [facility] LABORATORY Comment: Please note: ??Patients with WBC >100,00 0 may have falsely elevated Potassium levels. ??For accurate Potassium quantif ication in these patients send serum separator tube (gold top) for subsequent determinations. ??Contact the Clinical Chemistry Laboratory if there are any qu estions. Chloride 108 (H) 98 - 107 mmol/L [facility] CO2 22 22 - 31 mmol/L [facility] Anion Gap 8 5 - 15 mmol/L [facility] LABORATORY Calcium 8.2 (L) 8.5 - 10.5 mg/dL [facility] LABORATORY Estimated GFR 95 >=60 mL/min/1.73 m?? [facility] Comment: This patient's estimated [...] Organization Address City/State/[place] [address] (ABNORMAL) BLOOD GAS 2 ARTERIAL (05/15/2022 3:33 PM EDT) Analysis Performed At Patho logist Time Signature pH Art 7.33 (L) 7.35 - [facility] 7.45 [facility] LABORATORY pCO2 Art 41 35 - 45 [facility] LABORATORY pO2 Art 131 (H) 85 - 104 [facility] LABORATORY HCO3 Art 21.1 20.0 - [facility] 26.0 [facility] mmol/L [facility] LABORATORY BE Art -4.8 (L) -3.0 - 3.0 [facility] mmol/L [facility] LABORATORY Hgb Blood Gas 13.4 (L) 13.7 - [facility] 16.5 g/dL [facility] O2HB Art 96.9 94.0 - [facility] 97.0 % [facility] LABORATORY COHB Art 1.4 % [facility] Comment: Nonsmokers: 0.5-1.5% COHB Smokers: Variable, but usually less than 10% Toxic: 20-30% COHB Lethal: Greater than 60% COHB METHB Art 0.3 <=1.5 % [facility] LABORAT[facility] Na Whole Blood 139 135 - 145 mmol/L [facility] K Whole Blood 3.8 3.5 - 5.0 mmol/L [facility] Comment: Please note: Patients with WBC >100,000 may have falsely elevated Potassium levels. Contact the Clinical Chemistry L aboratory if there are any questions. ICa Whole Blood 1.32 1.15 - 1.33 mmol/L [facility] Comment: Note: ??Total bilirubin higher than 20 m g/dL may lead to falsely low ionized calcium. CL Whole Blood 113 (H) 98 - 107 mmol/L [facility] LABORATORY Gluc Whole Bld 136 65 - 199 mg/dL [facility] LABORATORY Comment: Diabetes: >=200 mg/dL plus symp toms. Lactate WB 2.0 0.5 - 2.2 mmol/L [facility] LABORATORY Specimen Anatomical Collection Method Collection Time Receive d Time (Source) Location / / Volume Laterality Blood 05/15/2022 3:33 PM 3:[address] Jamel Torre MD CHEMISTRY ORDERABLES Performing Organization Address City/State/[place] [address] (ABNORMAL) BLOOD GAS 2 ARTERIAL (05/15/2022 2:06 PM EDT) Analysis Performed At Patho logist Time Signature pH Art 7.39 7.35 - [facility] 7.45 [facility] LABORATORY pCO2 Art 35 35 - 45 [facility] mmHg [facility] LABORATORY pO2 Art 135 (H) 85 - 104 [facility] LABORATORY HCO3 Art 20.8 20.0 - [facility] 26.0 [facility] mmol/L [facility] LABORATORY BE Art -4.2 (L) -3.0 - 3.0 [facility] mmol/L [facility] LABORATORY Hgb Blood Gas 14.5 13.7 - [facility] 16.5 g/dL [facility] LABORATORY O2HB Art 97.2 (H) 94.0 - [facility] 97.0 % [facility] LABORATORY COHB Art 1.2 % [facility] Comment: Nonsmokers: 0.5-1.5% COHB Smokers: Variable, but usually less than 10% Toxic: 20-30% COHB Lethal: Greater than 60% COHB METHB Art 0.3 <=1.5 % [facility] LABOR[facility] Na Whole Blood 140 135 - 145 mmol/L [facility] K Whole Blood 3.8 3.5 - 5.0 mmol/L [facility] Comment: Please note: Patients with WBC >100,000 may have falsely elevated Potassium levels. Contact the Clinical Chemistry L aboratory if there are any questions. ICa Whole Blood 1.12 (L) 1.15 - 1.33 mmol/L [facility] Comment: Note: ??Total bilirubin higher than 20 m g/dL may lead to falsely low ionized calcium. CL Whole Blood 109 (H) 98 - 107 mmol/L [facility] LABORATORY Gluc Whole Bld 152 65 - 199 mg/dL [facility] LABORATORY Comment: Diabetes: >=200 mg/dL plus symp toms. Lactate WB 1.5 0.5 - 2.2 mmol/L [facility] LABORATORY Specimen Anatomical Collection Method Collection Time Receive d Time (Source) Location / / Volume Laterality Blood 05/15/2022 2:06 PM 2:[address] Jamel Torre MD CHEMISTRY ORDERABLES Performing Organization Address City/[facility]/ZIP Code Phon e Number [place] [id number] [address] LAB[address]ATORY Drive (ABNORMAL) Prothrombin Time (05/15/2022 12:30 PM EDT) athologist Signature PT 12.9 (H) 9.4 - 12.5 [facility] LABORATORY INR 1.1 [facility] Comment: An INR <2.0 [...] Morales DO HEMATOLOGY ORDERABLES Performing Organization Address City/[facility]/[place] [address] (ABNORMAL) APTT (05/15/2022 12:30 PM EDT) P athologist Signature PTT 76 (H) 25 - 37 sec [facility] Comment: The PTT is [...] Organization Address City/State/[place] [address] Gold Tube HOLD (05/15/2022 12:20 PM EDT) athologist Signature Gold Hold Sample in [facility]IA[facility] lab. [facility] LABORATORY Specimen Anatomical Collection Method Collection Time Receive d Time (Source) Location / / Volume Laterality Blood No Charge / 05/15/2022 12:20 05/15/2022 Unknown PM EDT 12:20 PM EDT Lc Dominick Kimberly TRIPP CHEMISTRY ORDERABLES Performing Organization Address City/State/[place] [address] Type and Screen Validity (05/15/2022 12:00 PM EDT) [facility] Method Time Signature T&S only valid [facility] at [facility] LABORATORY Comment: This Type and Screen result is only valid at the [facility] Specimen Anatomical Collection Method Collection Time Receive d Time (Source) Location / / Volume Laterality Blood 05/15/2022 12:00 05/15/2022 PM EDT 12:17 PM EDT Resulting Agency Comment Spec In Lab Lc TRIPP BLOOD BANK ORDERABLES Performing Organization Address City/[facility]/ZIP Code Phon e Number [address] ABORH Recheck Status (05/15/2022 12:00 PM EDT) [facility] Method Time Signature ABORH Recheck Order Placed [facility] K Order [facility] LABORATORY ABORH Type Complete [facility] LABORATORY Specimen Anatomical Collection Method Collection Time Receive d Time (Source) Location / / Volume Laterality Blood 05/15/2022 12:00 05/15/2022 PM EDT 12:17 PM EDT Resulting Agency Comment Spec In Lab Lc Dominick Kimberly TRIPP BLOOD BANK ORDERABLES Performing Organization Address City/State/ZIP [place] [address] CK (05/15/2022 12:00 PM EDT) P athologist Signature CK, Total 87 0 - 200 [facility] unit/L [facility] LABORATORY Specimen Anatomical Collection Method Collection Time Receive d Time (Source) Location / / Volume Laterality Blood Venous Draw / 05/15/2022 12:00 05/15/2022 Unknown PM EDT 12:19 PM EDT Resulting Agency Comment Spec In Lab Fito Summers MD CHEMISTRY ORDERABLES Performing Organization Address City/[facility]/ZIP [place] [address] Antibody screen (05/15/2022 12:00 PM EDT) [facility] Method Time Signature Ab Screen Negative [facility] LABORATORY Expires at 05/18/2022 [facility] [id number] on: [facility] LABORATORY Specimen Anatomical Collection Method Collection Time Receive d Time (Source) Location / / Volume Laterality Blood 05/15/2022 12:00 05/15/2022 PM EDT 12:17 PM EDT Resulting Agency Comment Spec In Lab Lc TRIPP BLOOD BANK ORDERABLES Performing Organization Address City/[facility]/ZIP Code Phon e Number [address] ABO/Rh Typing (05/15/2022 12:00 PM EDT) athologist [facility] ABORh Type O Pos [facility]OR[facility]ORY Specimen Anatomical Collection Method Collection Time Receive d Time (Source) Location / / Volume Laterality Blood 05/15/2022 12:00 05/15/2022 PM EDT 12:17 PM EDT Resulting Agency Comment Spec In Lab Lc Harris PA BLOOD BANK ORDERABLES Performing Organization Address City/[facility]/ZIP Code Phon e Number [address] (ABNORMAL) Differential, Automated (05/15/2022 12:00 PM EDT) [facility] Method Time Signature Neutrophils % 79.4 % [facility] Neutr Abs (ANC) 7.49 (H) 1.70 - [facility] 6.10 [facility] x10(3)/[facility] L LABORATORY Lymphocytes % 11.3 % [facility] Lymphocytes Abs 1.1 0.9 - 3.2 [facility] x10(3)/[facility] LABORATORY Monocytes % 7.8 % [facility] Monocyte Abs 0.7 0.3 - 0.9 [facility] x10(3)/[facility] LABORATORY Eosinophils % 0.6 % [facility] Eosinophils Abs 0.1 0.0 - 0.4 [facility] x10(3)/[facility] LABORATORY Basophils % 0.6 % [facility] Basophils Abs 0.1 0.0 - 0.1 [facility] x10(3)/[facility] LABORATORY Immature Gran % 0.30 % [facility] Comment: Immature granulocytes(IG's)percentage an d absolute count will include metamyelocytes, myelocytes, and promyelo cytes. Blood smears from CBCs yielding IG's will be scanned manually for concor dance. If this scan disagrees with the automated IG or if promyelocytes are not ed, a manual differential will be performed. Rain Gran Abs 0.03 0.00 - 0.04 x10(3)/[facility] MAR Y [facility] LABORATORY Specimen Anatomical Collection Method Collection Time Receive d Time (Source) Location / / Volume Laterality Blood 05/15/2022 12:00 05/15/2022 PM EDT 12:19 PM EDT Resulting Agency Comment Spec In Lab Lc TRIPP HEMATOLOGY ORDERABLES Performing Organization Address City/State/[place] [address] (ABNORMAL) Hemogram (05/15/2022 12:00 PM EDT) Analysis Performed At Patho logist Time Signature WBC 9.4 4.0 - 9.5 [facility] x10(3)/[facility] LABORATORY RBC 4.48 (L) 4.58 - [facility] 5.54 [facility] x10(6)/[facility] LABORATORY Hemoglobin 14.5 13.7 - [facility] 16.5 g/dL [facility] LABORATORY Hematocrit 42.4 40.5 - [facility] 48.5 % [facility] LABORATORY MCV 94.6 (H) 82.9 - [facility] 93.1 [facility] LABORATORY MCH 32.4 (H) 27.5 - [facility] 32.1 pg [facility] LABORATORY MCHC 34.2 32.0 - [facility] 35.7 g/dL [facility] LABORATORY Platelets 209 145 - 357 [facility] x10(3)/[facility] LABORATORY RDWSD 45.9 (H) 36.0 - [facility] 45.0 [facility] LABORATORY RDWCV 13.1 11.4 - [facility] 13.8 % [facility] LABORATORY MPV 10.5 7.6 - 12.9 [facility] LABORATORY nRBC % Auto 0.0 % [facility] LABORATORY nRBC Abs Auto 0.000 0.000 - [facility] 0.000 [facility] x10(3)/[facility] LABORATORY Specimen Anatomical Collection Method Collection Time Receive d Time (Source) Location / / Volume Laterality Blood 05/15/2022 12:00 05/15/2022 PM EDT 12:19 PM EDT Resulting Agency Comment Spec In Lab Lc TRIPP HEMATOLOGY ORDERABLES Performing Organization Address City/State/[place] [address] (ABNORMAL) Basic Metabolic Panel (non-fasting) (05/15/2022 12:00 PM EDT) P athologist Signature Glucose Lvl 203 (H) 65 - 199 [facility] mg/dL [facility] LABORATORY Comment: Diabetes: >=200 mg/dL plus symp toms BUN 16 10 - 20 mg/dL [facility] LABORATORY Creatinine 0.84 0.80 - 1.50 mg/dL [facility] LABORATORY Sodium 141 135 - 145 mmol/L [facility] LABORATORY Potassium 4.7 3.5 - 5.0 mmol/L [facility] LABORATORY Comment: Please note: ??Patients with WBC >100,00 0 may have falsely elevated Potassium levels. ??For accurate Potassium quantif ication in these patients send serum separator tube (gold top) for subsequent determinations. ??Contact the Clinical Chemistry Laboratory if there are any qu estions. Chloride 107 98 - 107 mmol/L [facility] CO2 23 22 - 31 mmol/L [facility] Anion Gap 11 5 - 15 mmol/L [facility] LABORATORY Calcium 8.5 8.5 - 10.5 mg/dL [facility] LABORATORY Estimated GFR 89 >=60 mL/min/1.73 m?? [facility] Comment: This patient's estimated [...] Organization Address City/State/[place] [address] documented in this encounter [...] Reason: Transfer to a Procedural area)1955 ([facility] Unhold - Provider: Admin Adt) 0816 (Given [...] Provider: Barbie joseph RN - Reason: NPO)1750 ([facility] Hold - Provider: Admin Adt - Reason: Transfer to a Procedural area)1955 ([facility] Unhold - Provider: Admin Adt)2132 (Given - [...] (Given - Provider: Barbie Joyce RN)1750 ([facility] Hold - Provider: Admin Adt - Reason: [...] Reason: Transfer to a Procedural area)1955 ([facility] Unhold - Provider: Admin Adt) 10 mg, [...] (1,000 units/mL) injection 0-8,000 Units 1750 ([facility] Hold - Provider: Admin Adt - Reason: Transfer to a Procedural area)1955 ([facility] Unhold - Provider: Admin Adt) 0-8,000 Units, [...] Reason: Transfer to a Procedural area)1955 ([facility] Unhold - Provider: Admin Adt) 10-15 mg, Oral, EVERY 4 HOURS PRN, Start ing on Fri05/17/22 at 0655, Until Fri05/21/22 at 1743, Pain, severe pain (7-10), Initial dose 10mg. If pain control not adequate in 60 minutes, give additional 5mg, Routine oxyCODONE (Roxicodone) tablet 5-10 mg(Linked Group 2) 1750 (JAN Hold - Provider: Admin Adt - Reason: Transfer to a Procedural area)1955 ([facility] Unhold - Provider: Admin Adt) 5-10 mg, [...]
Routine documented in this encounter Care Teams Hook And Eye Sewing Machine Operator Relationship Specialty Start Date End Date Bobby Das MD PCP - General 10/02/[address] [place] [address] [place] [phone] documented as of this encounter
--- OUTSIDE RECORDS SUMMARY | 2022-07-08 09:50 | XMS_ITS | Encounter Summary ---
:1940 Author Organization [facility] Address [facility] [place] [address] Care Team Providers Name Role Phone Bobby Das MD Primary Care Provider Encounter Details Date Type Department Care Team Description 10/25/2020 Laboratory Appointment Lab at [facility] Compression fracture [facility] of [address] [place] [address] Social History Tobacco Use Types Packs/Day Years [...] MD [facility] DR GASTROENTEROLOGY DEPT [place], [place] 0375 (Wo rk) 09/05/2022 Appointment Cardiology Trinity Reid MD [facility] CARDIOLOGY [place], [place] 0375 (Wo rk) 09/05/2022 Office Visit Cardiology Trinity Reid MD [facility] CARDIOLOGY [place], [place] 0375 (Wo rk) documented as of this encounter Procedures Procedure Name Priority Date/Time Associated Diagnosis Comme [facility] VENIPUNCTURE Routine 10/25/2020 6:35 AM Compression fractur [...] Platelets 192 145 - 357 [facility] x10(3)/[facility] LABORATORY Plat Immature 2.6 0.0 - 7.4 [facility] % % [facility] LABORATORY Comment: Limitation of the Immature Platelet Frac tion (IPF)-May be less reliable when the platelet count is less than 40p373/u L due to statistical imprecision. The IPF [...] in a decreased state of production. References: [employer] The Clinical Value of the Immature Platelet Fraction (IPF) in Cell Recovery Document Number 10-1143 04/2011 [employer] The Role of the Imm ature [...] Organization Address City/State/[place] [address] Prothrombin Time (10/25/2020 6:35 AM EST) athologist Signature PT 10.8 9.4 - 12.5 [facility] LABORATORY INR 1.0 [facility] [...] Organization Address City/State/ZIP Code Phon e Number [place] [id number] HOSPITAL LAB[address]ORY [address] documented in this encounter Visit Diagnoses Diagnosis Compression fracture of T9 vertebra, ini tial encounter documented in this encounter Care Teams Conveyor Tender Relationship Specialty Start Date End Date Bobby Das MD PCP - General 10/02/[address] [place] [address] [place] [phone] documented as of this encounter
--- OUTSIDE RECORDS SUMMARY | 2022-07-08 09:50 | XMS_ITS | Encounter Summary ---
:1940 Author Organization [facility] [place] [address] Care Team Providers Name Role Phone Bobby Das MD Primary Care Provider Reason for Referral Diagnostic Test (Routine) - Closed Specialty Diagnoses / Procedures Referred By Contact Refer red To Contact Radiology Diagnoses Compression fracture of T9 vertebra, initial encounter Alphonso Esquivel DO [facility] Interventionl Rad Procedures IR Vertebroplasty Thoracic [facility] [place] [address] [place] [address] Referral ID Status Reason Start Date Expiration Date Visits V isits Requested Authorized [id number] Closed Specialty 10/13/2020 04/13/2022 1 1 Service Requested Reason for Visit Diagnostic Test (Routine) - Closed Specialty Diagnoses / Procedures Referred By Contact Refer red To Contact Radiology Diagnoses Compression fracture of T9 vertebra, initial encounter Alphonso Esquivel DO [facility] Interventionl Rad Procedures IR Vertebroplasty Thoracic [facility] [place] [address] [place] [address] Referral ID Status Reason Start Date Expiration Date Visits V isits Requested Authorized [id number] Closed Specialty 10/13/2020 04/13/2022 1 1 Service Requested Encounter Details Date Type Department Care Team Description 10/25/2020 Hospital Encounter Radiology at [facility] Esquivel, Alphonso R, Compression fracture [facility] DO of T9 vertebra, [facility] initial encounter [place], [place] CENTER [address] DIAGNOSTIC [phone] [place] [address] Social History Tobacco Use Types Packs/Day Years [...] Vargas RN - 10/25/2020 9:13 AM EST [facility] Discharge Instructions for Vertebroplasty Your vertebroplasty [...] is during regular office hours, please call [phone]. If it is after regular office hours, oron weekends or holidays, please call [phone] and ask to speak to the Software Programmer on callfor Interventional Radiology. XXX You have [...] of : 1940 AGE: 80 y.o. Address: [address] [place] [phone] (home) Mobile: No relevant phone numbers on file. Referring Provider: Alphonso Esquivel REASON FOR VISIT: Order Questions Answers Where will study be performed? [facility] Radiology [120] Is the patient on [...] Collins MD [facility] GASTROENTEROLOGY DEPT [place], [place] [address] (Wo rk) 09/05/2022 Appointment Cardiology Trinity Reid MD [facility] CARDIOLOGY [place], [place] [address] (Wo rk) 09/05/2022 Office Visit Cardiology Trinity Reid MD [facility] CARDIOLOGY [place], [place] [address] (Wo rk) documented as of [...] made and a 13g a introducer needle (Ubitexx) was advanced through the right pedicle and t o the ??T9 vertebral body during an intermittent fluoroscopic guidance. The Ubitexx biopsy cannula was advanced through the introducer [...] was made and a 13ga introducer needle (Oncothyreon) was advanced through the left pedicle and [...] the interservice administration of fentanyl and Versed [facility] continuous monitoring of blood pressure, oxygenation [...] made and a 13g a introducer needle (Ubitexx) was advanced through the right pedicle and t o the T9 vertebral body during an intermittent fluoroscopic guidance. The [place] biopsy cannula was advanced through the introducer [...] was made and a 13ga introducer needle (Oncothyreon) was advanced through the left pedicle and [...] contact e number below. Alphonso Esquivel DO G IR ORDERABLES Surgical Pathology Report (10/25/2020 8:26 AM EST) Component Value Ref Test Analysis Performed At [facility] Method Time Signature Surgical [id number] ? Location: [address] [place] [address] Pathology [place] Report The signing pathologist has (i) examined [...] Bone & Soft Tissue Pathologist Performed at: ??-[facility] Dept. of Pathology, [place], [place] DISCUSSION I see no neoplastic process [...] DO PATHOLOGY/CYTOLOGY ORDERABLE S Performing Organization Address City/[facility]/ZIP [place] [address] Specimen to Pathology (10/25/2020 8:26 AM EST) Specimen Anatomical Collection Method Collection Time Receive d Time (Source) Location / / Volume Laterality AP Specimen 10/25/2020 8:26 AM 0 8:26 EST AM EST Narrative [facility] - 10/25/2020 8:26 AM EST Specimen requisition ordered. ??Separate Pathology report to follow Alphonso Esquivel DO PATHOLOGY/CYTOLOGY ORDERABLE S Performing Organization Address City/[facility]/[place]UST Code Phon e Number [address] documented in this encounter [...] Procedure) documented in this encounter Care Teams Zoology Professor Relationship Specialty Start Date End Date Bobby Das MD PCP - General 10/02/[address] [place] [address] [place] [address] documented as of this encounter
--- OUTSIDE RECORDS SUMMARY | 2022-07-08 09:50 | XMS_ITS | Encounter Summary ---
:1940 [place] [address] Care Team Providers Name Role Phone Bobby Das MD Primary Care Provider Reason for Visit Auth/Cert Specialty Diagnoses / Procedures Referred By Contact Refer red To Contact Diagnoses Limb ischemia LLE thrombus Fito Summers MD [facility] [address] Referral ID Status Reason Start Date Expiration Date Visits Requ ested Visits Authorized [id number] 1 1 Encounter Details Date Type Department Care Team Description 05/15/2022 Anesthesia Event Main Operating Room Cari Briggs MD [facility] [place] [address] [facility] Duong Aguillon CRNA [facility] [place] [address] [place] [address] Anesthesia Record Procedure Summary Procedure Name [...] RN Amb Hilton houser RN fossa), left; aody-zre-vawahe catheter system; 18 gauge; OSH; site care per policy/procedure, site symptomatic, removed per policy/procedure, catheter/device intact; 05/16/22; 1117 PIV 05/15/22; 1204; median 05/15/22 1204 by 05/16/22 0738 by cubital vein (antecubital Marcia Dimas RN Gon zalez, Adriana, fossa), right; RN bruy-zgv-zffrfy catheter system; 18 gauge; OSH; 05/16/22; 0738 [...] Procedure Summary Date: 05/15/22 Room / Location: [facility] OR [address] [place] [address] MAIN OR Anesthesia Start: 1320 Anesthesia Stop: 1633 Procedure: EMBOLECTOMY OR THROMBECTOMY, FEMOROPOPLITEAL, AORTOILIAC ARTERY BY LEG INCISION (WRVU 19.48) (Left ) Diagnosis: (Acute Limb Ischemia) Surgeons: Fito Summers MD Responsible Provider: Cari Ventura MD Anesthesia Type: general ASA Status: 3 - Emergent All Anesthesia Providers: Anesthesiologist: Cari Ventura MD BUSINESS CONSULT: Torres Aguilar CRNA Vitals Value Taken Time BP 108/69 05/15/22 1715 Temp 36.3 ??C (97.3 ??F) 05/15/22 1633 Pulse 110 05/15/22 1719 Resp 16 05/15/22 1719 SpO2 89 % 05/15/22 1719 Pain Level Vitals shown include unvalidated device data. Patient Location: PACU/[facility] Level of Consciousness: Awake and Alert [...] THROMBECTOMY, FEMOROPOPLITEAL, AORTOILIAC ARTERY BY LEG INCISION ([facility] 19.48) Patient Active Problem List Diagnosis Date [...] IR Biopsy Spine 07/20/2019 Bobby Marshall MD [facility] INTERVENTIONL RAD ??? IR VERTEBROPLASTY LUMBAR MULTIPLE LEVELS 07/20/2019 IR Vertebroplasty Lumbar Multiple Levels 07/20/2019 Bobby Marshall MD [facility] INTERVENTIONL RAD ??? IR VERTEBROPLASTY THORACIC SINGLE LEVEL 10/25/2020 IR Vertebroplasty Thoracic Single Level 10/25/2020 Matt Chisholm MD [facility] INTERVENTIONL RAD Social History Tobacco Use ??? [...] a(n) intravenous induction 81 yo current and assisted smoker with significant daily etoh use (6 [...] discussed with patient who. Plan discussed with BUSINESS CONSULT. Anesthesia Screening documented in this encounter Plan of Treatment Upcoming Encounters Date Type Specialty Care Team Description 08/08/2022 Office Visit Gastroenterology Negra Collins MD [facility] GASTROENTEROLOGY DEPT [place], [place] [address] (Wo rk) 09/05/2022 Appointment Cardiology Trinity Reid MD [facility] CARDIOLOGY [place], [place] [address] (Wo rk) 09/05/2022 Office Visit Cardiology Trinity Reid MD [facility] CARDIOLOGY [place], [place] [address] (Wo rk) documented as of [...] Routine documented in this encounter Care Teams Chicken Vaccinator Relationship Specialty Start Date End Date Bobby Das MD PCP - General 10/02/[address] [place] [address] [place] [phone] documented as of this encounter
--- OUTSIDE RECORDS SUMMARY | 2022-07-08 09:50 | XMS_ITS | Encounter Summary ---
:1940 [place] [address] Care Team Providers Name Role Phone Bobby Das MD Primary Care Provider Encounter Details Date Type Department Care Team Description 10/13/2020 Notes Only Radiology at [facility] Alphonso Esquivel [facility] [place] [address] DIAGNOSTIC RADIOLOGY [phone] [place] [id number] (Wo rk) Social History Tobacco Use Types [...] [facility] GASTROENTEROLOGY DEPT [place], [place] [address] (Wo rk) 09/05/2022 Appointment Cardiology Trinity Reid MD [facility] CARDIOLOGY [place], [place] [address] (Wo rk) 09/05/2022 Office Visit Cardiology Trinity Reid MD [facility] CARDIOLOGY [place], [place] [address] (Wo rk) documented as of this encounter Visit Diagnoses Not on filedocumented in this encounter Care Teams Yarding Supervisor Relationship Specialty Start Date End Date Bobby Das MD PCP - General 10/02/[address] [place] [address] [place] [phone] documented as of this encounter
--- OUTSIDE RECORDS SUMMARY | 2022-07-08 09:50 | XMS_ITS | Encounter Summary ---
:1940 [place] [address] Care Team Providers Name Role Phone Bobby Das MD Primary Care Provider Reason for Visit Reason Comments Left Leg Pain Auth/Cert Specialty Diagnoses / Procedures Referred By Contact Refer red To Contact Diagnoses Limb ischemia LLE thrombus Fito Summers MD [facility] [place] [address] Referral ID Status Reason Start Date Expiration Date Visits Requ ested Visits Authorized [id number] 1 1 Encounter Details Date Type Department Care Team Description 05/15/2022 Surgery Main Operating Room Savana Summers se, MD [facility] FEMOROPOSANG, [facility] VASCULAR SURG JULIAN [place] [address] LEG INCISION ([place] [address] 19.48) [phone] Social History Tobacco Use Types Packs/Day Years [...] onset Afib who presents in transfer from [facility] with acute limb ischemia of [...] emergently went to the OR for L MONUMENT CARVER transverse arteriotomy and primary repair, thromboembolectomy of L SFA/PFA/MONUMENT CARVER, reperfusion venous drainage for 250 cc, and [...] Discharge Condition: Good Discharge to: Home with [facility] [address] [address] Future Appointments and Orders Future Appointments and Orders Future Appointments Provider Department Dept Phone 05/23/2022 10:30 AM Loretta Cohen MD Dermatology at [facility] Arrive at: Business Analyst Manager [address] [place] [address] 06/07/2022 1:30 PM Gail Rae APRN Vascular Surgery at [facility] Arrive at: Business Analyst Manager Area [phone] 06/13/2022 7:30 AM Edson Lagos [place] Vascular Lab at [facility] Arrive at: Business Analyst Manager Area [phone] 06/13/2022 8:00 AM Fito Summers MD Vascular Surgery at [facility] Arrive at: Business Analyst Manager Area 3V [phone] 06/13/2022 10:00 AM Alan Reid MD Cardiology at [facility] Arrive at: Business Analyst Manager Area 4A [phone] Future Orders Complete By Expires Ziopatch 48 Hrs-15 Days [OMS0390 CPT(R)] 05/21/2022 11/20/2022 Process Instructions: Scheduling Instructions: Comments: Questions: Does the patient have a pacemaker? If yes provide HI/LO settings: Apply for 7 or 14 days?: 7 Where will study be performed?: [facility] JOSSELYN, legs, multiple levels [VAS8 Custom] 06/21/2022 (Approximate) 12/21/2022 Process Instructions: There is no in-house vascular track laborer available on weeknights (5pm-8am), weekends, or holidays. IF THIS IS A REQUEST FOR AN EMERGENT STUDY DURING THOSE HOURS, please have the senior provider responsible for the patient page the Vascular Surgery Fellow/Senior Resident maxillofacial prosthodontist to discuss options. Scheduling Instructions: Questions: Indication for study/signs & symptoms: ALI s/p L fem cutdown with thromboembolectomy Question to be answered: Perfusion to feet? Please check toe pressure Preferred location?: [facility] Referral to Cardiology [REF12 Custom] [...] Zamora for admission to Home Health. [address] [facility] [address] (home) Date of : 1940 Inpatient DOCUMENTATION FOR VNA SERVICES (INCLUDING THOSE PATIENTS WITH MEDICARE COVERAGE REQUIRING HOME VNA SERVICES AND/OR HOSPICE SERVICES) PATIENT'S LOCATION: Koko Zamora [address] [facility] [address] (home) Cell: No relevant phone numbers on file. Mechanical Assembler's Name: Koko In discussion with the attending physician, it is certified that this patient is under their care and that they, or a Nurse Practitioner,Clinical Nurse specialist or Physician Molding Sander who is working directly with them, had [...] for managing ADL's. HOME HEALTH CARE AGENCY: [facility] [address] [place] [address] Start of care: Within 24 to 48 [...] obtained from this patient'sPCP: Bobby Das MD [address] [place] [address] / [place] [address] All VNA agencies which cover the [...] For any problems or questions please call [phone] For issues on weeknights after 5pm and weekends please call [phone] and ask for the Vascular Fellow maxillofacial prosthodontist. JOSEE Santiago Vascular Surgery 05/21/2022 documented in [...] For any problems or questions please call [phone] For issues on weeknights after 5pm and weekends please call [phone] and ask for the Vascular Fellow maxillofacial prosthodontist. documented in this encounter Medications at Time [...] 04/12/20 21 (FLONASE) 50 mcg/actuation Nare route [place], Suspension daily as needed. fluorouraciL (EFUDEX) 5 [...] onset Afib who presents in transfer from [facility] with acute limb ischemia of [...] status, full code. JOSEE Santiago 05/21/2022 Pager: [phone] PaBrannon gamino, PT - 05/21/2022 10:35 AM [...] plan as stated. Time IN / OUT: 9377-5717 Total Minutes, Physical Therapy: 25 Billing Code: 2 TA Brannon Isaacs DPT Pager: [phone] Physical Therapy Inpatient Rehabilitation Department [place] Jean [...] from 05/15/2022 in Intermediate Cardiac Care Unit [facility] Office Visit from 04/17/2021 in Pain and Spine Center at [facility] Weight [...] and plan of care per Dr. Mcnamara (project accountant). Please refer to her note above for [...] limb ischemia (thromboembolic) and he is a care home smoker (1/2 ppd, recommend nicotine patch). His [...] to Hosp-Admission (Current) from 05/15/2022 in 4 [facility] Office Visit from 04/17/2021 in Pain and Spine Center at [facility] Weight [...] findings andplan of care per Dr. Mcnamara (project accountant). Please refer to her note above for [...] a mitral repair in 2000 (not at [facility]) with [...] AF and the first documented HR at [facility] was [...] onset Afib who presents in transfer from [facility] with acute limb ischemia of [...] management following Dottie Hill APRN 05/20/2022 Pager: [phone] Laney Atkins RN - 05/20/2022 1:14 AM EDT Pt Koko transferred to room from [facility]. A&Ox4, oriented to room and call boo. Masimo and telemetry placed. In agreement with assessment as documented this evening by Nuris ASHLEY. No complaints at this time. Pt aware of NPO status and plan for cardiac cath in AM. Urinal provided. Resting comfortably in bed. Nuris Lester RN - 05/20/2022 1:09 AM EDT Pt. Transferred to [facility]. RN accompanied patient to floor and handed off to [facility] RN Dottie Hill APRN - 05/19/2022 10:02 AM EDT Vascular Surgery Progress Note Koko Zamora is a 81 y.o. male with w new onset Afib who presents in transfer from [facility] with acute limb ischemia of [...] management following Dottie Hill APRN 05/19/2022 Pager: [phone] Emily Sauceda RN - 05/19/2022 6:28 AM EDT OUTCOME EVALUATION NOTE: OUTCOME SUMMARY: Patient AOx4, VSS on RA. Afib on tele. HR controlled w/ PRN metop, given x2. Denies CP, SOB, n/v. See flowsheets for NVC. Dressings to LLE CDI, prevena WV to groin intact. Voiding to urinal. LBM HEAD IRRIGATOR, patient stating he will maybe try the [...] adequately without difficulty to bedside urinal. LBM HEAD IRRIGATOR. Up to chair this AM with nursing staff. Worked with PT, tolerated well. Diet changed to regular at 1800.Plan is for cardiac cath on Friday. PLAN MOVING FORWARD: Bleeding precautions Pain management neurovascular checks PT/OT tutorial laboratory supervisor INDIVIDUALIZED FALL PREVENTION INTERVENTIONS: Patient-specific fall risk [...] onset Afib who presents in transfer from [facility] with acute limb ischemia of [...] mL Intravenous BID ??? PHENobarbitaL 0.12 mg/kg/dose (Denison) Oral BID ??? thiamine 100 mg Oral [...] management following Dottie Hill APRN 05/18/2022 Pager: [phone] Brannon Isaacs, PT - 05/18/2022 10:00 AM [...] IR Biopsy Spine 07/20/2019 Bobby Marshall MD [facility] INTERVENTIONL RAD ??? IR VERTEBROPLASTY LUMBAR MULTIPLE LEVELS 07/20/2019 IR Vertebroplasty Lumbar Multiple Levels 07/20/2019 Bobby Marshall MD [facility] INTERVENTIONL RAD ??? IR VERTEBROPLASTY THORACIC SINGLE LEVEL 10/25/2020 IR Vertebroplasty Thoracic Single Level 10/25/2020 Matt Chisholm MD [facility] INTERVENTIONL RAD ??? PRO EMBLC/THRMBC FEMORAL POPLITEAL AORTO-ILIAC ARTERY Left 05/15/2022 EMBOLECTOMY OR THROMBECTOMY, FEMOROPOPLITEAL, AORTOILIAC ARTERY BY LEG INCISION (WRVU 19.48) performed by Fito Summers MD at [facility] MAIN OR Social History: Pt [...] in this evaluation. Time IN / OUT: 2461-7807 Total Minutes, Physical Therapy: 30 Billing Code: Basilio Isaacs, PT Pager: [phone] Physical Therapy Inpatient Rehabilitation Department Emily Sauceda RN - 05/18/2022 4:34 AM EDT OUTCOME EVALUATION NOTE: OUTCOME SUMMARY: Patient AOx4, VSS on 2LNC. Afib on tele. HR above 120, MD aware, PRN IV metop given x1, HR returned to 90's-low 100's. Denies CP, SOB, n/v. See flowsheets for NVC. Dressings to LLE CDI, prevena WV to groin intact. Voiding to urinal. LBM HEAD IRRIGATOR. Heparin gtt therapeutic. Pain controlled. Patient sleeping [...] adequately without difficulty to bedside urinal. LBM HEAD IRRIGATOR. Patient not OOB this shift. Currently NPO awaitingprocedure in laboratory manager. PLAN MOVING FORWARD: Bleeding precautions Pain management neurovascular checks PT/OT NPO for laboratory manager INDIVIDUALIZED FALL PREVENTION INTERVENTIONS: Patient-specific fall risk [...] Comment, Session Not Performed Orders recieved on oKko Zamora who is a 81 y.o male with history of atrial fibrillation not on anticoagulation, and GI bleeding who presented to the Emergency Department as a transfer from [facility] with left lower extremity limb ischemia. He went to [facility] and was startedon heparin and transferred to [facility] for evaluation by vascular surgery with subsequent [...] he will will be going to the laboratory manager for evaluation. Will defer PT eval at present but will see as ordered post cardiac catheritizaton. Social Hx:Pt lives with his Ursula in [place], [place] in a 2 level home in [...] WBAT LLE LISBET HERMAN PT Pager # [phone] In-Pt Rehab Medicine Dottie Hill APRN - 05/17/2022 7:42 AM EDT Vascular Surgery Progress Note Koko Zamora is a 81 y.o. male with w new onset Afib who presents in transfer from [facility] with acute limb ischemia of [...] mL Intravenous BID ??? PHENobarbitaL 0.24 mg/kg/dose (Denison) Oral BID Followed by ??? [START ON 05/18/2022] PHENobarbitaL 0.12 mg/kg/dose (Denison) Oral BID ??? thiamine 100 mg Oral [...] management following Dottie Hill APRN 05/17/2022 Pager: [phone] Sary Dos Santos, RN - 05/17/2022 12:16 [...] onset Afib who presents in transfer from [facility] with acute limb ischemia of [...] mL Intravenous BID ??? PHENobarbitaL 0.48 mg/kg/dose (Denison) Oral BID Followed by ??? [START ON 05/17/2022] PHENobarbitaL 0.24 mg/kg/dose (Denison) Oral BID Followed by ??? [START ON 05/18/2022] PHENobarbitaL 0.12 mg/kg/dose (Denison) Oral BID ??? thiamine 100 mg Oral [...] management following Edward Rodríguez MD 05/16/2022 Pager: [phone] Sary Dos Santos RN - 05/16/2022 12:52 [...] 2129 Hand off to DION Ramirez 3 bow documented in this encounter H&P Notes Kerry [...] onset Afib who presents in transfer from [facility] with acute limb ischemia of [...] IR Biopsy Spine 07/20/2019 Bobby Marshall MD [facility] INTERVENTIONL RAD ??? IR VERTEBROPLASTY LUMBAR MULTIPLE LEVELS 07/20/2019 IR Vertebroplasty Lumbar Multiple Levels 07/20/2019 Bobby Marshall MD [facility] INTERVENTIONL RAD ??? IR VERTEBROPLASTY THORACIC SINGLE LEVEL 10/25/2020 IR Vertebroplasty Thoracic Single Level 10/25/2020 Matt Chisholm MD [facility] INTERVENTIONL RAD Social Hx: Social [...] Refill ??? fluticasone propionate (FLONASE) 50 mcg/actuation [place], Suspension as needed. ??? fluorouraciL (EFUDEX) 5 [...] and consented. Tim Chicas MD 05/15/2022 Pager: [phone] documented in this encounter ED Notes Lc Harris PA - 05/15/2022 1:20 PM EDT ED Provider Note HPI: Koko Zamora is a 81 y.o. male with history of atrial fibrillation not on anticoagulation, and GI bleeding who presents to the Emergency Department as a transfer from [facility] with left lower extremity limb ischemia. Patient says that the symptoms started roughly 630 this morning when he developed severe pain in his left lower extremity. He went to [facility] and was started on heparin and transferred to [facility] for evaluation by vascular surgery. Review of [...] src: Oral SpO2: 94 % O2 Device: SC O2 Flow Rate (L/min): 2 L/min Physical [...] lower extremity earlier today and went to [facility] where it was determined that he had ischemia of the left lower extremity. Vascular surgery [facility] was contacted and he was transferred [...] orders before pt. Arrival. Pt. Arrived at [facility] by [...] in an outpatient cardiac rehabilitation program at [facility] was discussed. Patient agrees to a referral to this program. Timing will depend on his recovery from Vascular surgery. He is going home w/VNA PT. I gave him the brochure for the program at [facility] for future reference. Care Management [...] information for follow-up Home Health & Hospice, [place] [address] [place] [address] Transportation: family or friend will provide Functional [...] Type: *No Product type* / Secondary Insurance: [facility] Prescription Coverage: Yes This plan was formulated with input from patient and team. All are in agreement with plan. RS has communicated with [facility] - for initial IMM. Shawn (Satish) DION López RN/CM - Cellphone: [phone] Pager: [phone] Covering Service RN/CM Plan of Care - [...] catheterization, transferred in hospital bed accompanied by School Adjustment Counselor RN, remains on telemetry monitoring. Heparin gtt [...] Type: *No Product type* / Secondary Insurance: [facility] Last Physical Therapy Recommendation: home with home health, home with supervision with None Last Occupational Therapy Recommendation: with Plan for discharge is: Home w/ Services Outpatient Agency/Support Group Needs: None Home Health Services: Registered Nurse, Physical Therapy, Occupational Therapy Agency Referrals: I have met with the patient to: ?? discuss discharge planning needs. ?? provide the [facility], Office of Care Management letter from the [employer] pertaining to rehab referrals. ?? provide a letter describing our affiliations within the [facility] and educate about their right to choose where referrals are sent. ?? provide a list of Home Health Agencies / Durable Medical Equipment vendors which serve their preferred geographic area. ?? provided patient with [facility] Star Quality Rating handout. They have requested referrals to: [facility] [employer] [employer]. [address] [place] [address] Note routed to a Director Of Physical Therapy who will communicate referrals to facilities and provide any required information. Transportation: family or friend will provide Barriers to discharge: None Plan going forward: Patient is going for a cardiac cath today and plan will come from there. Patientwas recently seen by PT and they recommend VNA at time of discharge. [facility] was routed and pendedat this time. Care Management will continue to follow and assist with discharge planning and coordination of care as indicated. Anticipated Date of Discharge: 05/21/2022 Nataly RICHMOND RN Phone: [phone] Pager: [phone] Plan of Care - Laney Atkins RN [...] from the original note were not included. [facility] [place] [address] [address] INPATIENT CARDIOLOGY CONSULT NOTE Date of Consultation: 05/17/2022 Admit Date: 05/15/2022 Hospital Day 2 days Reason for Consult: New afib Active Problems: Active Hospital Problems Diagnosis Limb ischemia Resolved Hospital Problems No resolved problems to display. HPI: Koko Zamora is a 81 y.o. male with a PMHx significant for MVP (s/p MV repair 2000), tobacco use, HLD, who presented to [facility] from [facility]SH on 05/15 with acute limb ischemia of LLE and was found to be in atrial fibrillation. Patient had sudden onset LLE pain on 05/15 and presented to [facility], where he was started on heparin and transferred to [facility]. Upon arrival to [facility], patient [...] IR Biopsy Spine 07/20/2019 Bobby Marshall MD [facility] INTERVENTIONL RAD IR VERTEBROPLASTY LUMBAR MULTIPLE LEVELS 07/20/2019 IR Vertebroplasty Lumbar Multiple Levels 07/20/2019 Bobby Marshall MD [facility] INTERVENTIONL RAD IR VERTEBROPLASTY THORACIC SINGLE LEVEL 10/25/2020 IR Vertebroplasty Thoracic Single Level 10/25/2020 Matt Chisholm MD [facility] INTERVENTIONL RAD PRO EMBLC/THRMBC FEMORAL POPLITEAL AORTO-ILIAC ARTERY Left 05/15/2022 EMBOLECTOMY OR THROMBECTOMY, FEMOROPOPLITEAL, AORTOILIAC ARTERY BY LEG INCISION (WRVU 19.48) performed by Fito Summers MD at [facility] MAIN OR Allergies Allergen Reactions Aspirin Other (See Comments) GI bleed Out-Patient Medications: Medications Prior to Admission Medication Sig Dispense Refill Last Dose fluorouraciL (EFUDEX) 5 % Cream daily. CRESTOR 40 mg Tablet Take 40 mg by mouth daily. fluticasone propionate (FLONASE) 50 mcg/actuation [place], Suspension as needed. ascorbic acid, vitamin C, [...] 5 mL Intravenous BID PHENobarbitaL 0.24 mg/kg/dose (Denison) Oral BID Followed by [START ON 05/18/2022] PHENobarbitaL 0.12 mg/kg/dose (Denison) Oral BID thiamine 100 mg Oral Daily folic acid 1,000 mcg Oral Daily multivitamin with minerals 1 tablet Oral Daily heparin (porcine) infusion 1,200 Units/hr (05/17/22 5557) Family History: No family history on file. [...] to Hosp-Admission (Current) from 05/15/2022 in 3 [facility] Office Visit from 04/17/2021 in Pain and Spine Center at [facility] Weight [...] continue to follow Anne-Marie Larson MD Pager [phone] Clinic: [phone] 05/17/22 6:22 PM Initial Assessments - Ifrah [...] spouse would be surrogate decision maker per [place] surrogate decision making law. (Only good for 180 days) Any patient receiving care at [facility] must abide by [place] law. The hierarchy for surrogate decision making [...] The agent with financial power of assistant district attorney or a conservator appointed in [...] raised toilet seat Home Address confirmed as: [address] [place] [phone] Social & Family Supports: All names listed below confirmed with patient as Incorrect. Will notify toni to correct. Wifes address is same as and phone is [phone]. Extended Emergency Contact Information Primary Emergency Contact: Ursula Zamora Address: [address] [place] [address] [address] [place] [address] [facility] Relation: Spouse Current Care Provided [...] Type: *No Product type* / Secondary Insurance: [facility] Prescription Coverage: Yes Preferred Pharmacy: [id number] - [place], [place] - [address] [facility] [address] [facility] [address] [id number] - [place], [place] - [address] [facility] [address] [facility] [address] [place] Status: Patient is a : unable to assess Primary Care Provider: Bobby Das MD [phone] Patient/Caregiver Goals of Treatment: to walk again Potential Needs for Transition of Care: none noted per 05/16 IDR Transportation: family will provide Transportation Anticipated: family or friend will provide Concerns to be Addressed: no discharge needs identified Assessment: Patient is admitted to vascular surg service for left lower extremity limb ischemia Plan: Per PT OT recommendations . Has used [facility] in the past. A member of the Care Management team will continue to monitor progress, follow for continuity of care and assist with transition of care planning. Ifrah Bell RN BSN Supervisory It SpecialistMortgage Assistant of Care Management Pager [phone] Brief Op Note - Erin Garza MD - 05/15/2022 5:04 PM EDT Brief Operative Note Patient Name: Koko Zamora : [id number] MR#: [id number] Case Date: 05/15/2022 Surgeon: Surgeon(s) and Role: [...] Garza MD - 05/15/2022 2:08 PM EDT [facility] Operative Note Patient Name: Koko Zamora : [id number] MR#: [id number] Case Date: 05/15/2022 Surgeon: Surgeon(s) and Role: [...] 08/08/2022 Office Visit Gastroenterology Negra Collins MD [facility] GASTROENTEROLOGY DEPT [place], [place] 0[address] (Wo rk) 09/05/2022 Appointment Cardiology Trinity Reid MD [facility] CARDIOLOGY [place], [place] [address] (Wo rk) 09/05/2022 Office Visit Cardiology Trinity Reid MD [facility] CARDIOLOGY [place], [place] 0[address] (Wo rk) Scheduled Referrals Name [...] Component Value Ref Test Analysis Performed At [facility] Method Time Signature VB Text Department: Vascular Surgery Lab VASCUBASE Report Patient: [id number] (KOKO ZAMORA) CPT: 29317 Referring Physician: FITO SUMMERS ?? Phone: Indications: s/p L MONUMENT CARVER endart. Diabetes mellitus: no Findings: Right ?Pressure [...] UFH 0.42 IU/mL [facility] LABORATORY Comment: Heparin (anti-Xa) levels should be [...] Organization Address City/State/[place] [address] Differential, Automated (05/21/2022 6:15 AM EDT) P athologist Signature Neutrophils % 58.8 % [facility] LABORATORY Neutr Abs (ANC) 3.97 1.70 - [facility] 6.10 [facility] x10(3)[facility] LABORATORY Lymphocytes % 25.2 % [facility] LABORATORY Lymphocytes Abs 1.7 0.9 - 3.2 [facility] x10(3)[facility] LABORATORY Monocytes % 12.9 % [facility] LABORATORY Monocyte Abs 0.9 0.3 - 0.9 [facility] x10(3)[facility] LABORATORY Eosinophils % 2.1 % [facility] LABORATORY Eosinophils Abs 0.1 0.0 - 0.4 [facility] x10(3)[facility] LABORATORY Basophils % 0.4 % [facility] LABORATORY Basophils Abs 0.0 0.0 - 0.1 [facility] x10(3)[facility] LABORATORY Immature Gran % 0.60 % [facility] LABORATORY Comment: Immature granulocytes(IG's)percentage an d absolute count will include metamyelocytes, myelocytes, and promyelo cytes. Blood smears from CBCs yielding IG's will be scanned manually for concor dance. If this scan disagrees with the automated IG or if promyelocytes are not ed, a manual differential will be performed. Rain Gran Abs 0.04 0.00 - 0.04 x10(3)/[facility] LABORATORY Specimen Anatomical Collection Method Collection Time Receive d Time (Source) Location / / Volume Laterality Blood 05/21/2022 6:15 AM 2 6:38 EDT AM EDT Resulting Agency Comment Spec In Lab Edward Rodríguez MD HEMATOLOGY ORDERABLES Performing Organization Address City/State/[place] [address] (ABNORMAL) Hemogram (05/21/2022 6:15 AM EDT) [facility] gist Method Time Signature WBC 6.8 4.0 - 9.5 [facility] x10(3)/[facility] LABORATORY RBC 3.59 (L) 4.58 - [facility] 5.54 [facility] x10(6)/[facility] LABORATORY Hemoglobin 11.8 (L) 13.7 - [facility] 16.[facility] g/dL [facility] LABORATORY Hematocrit 34.5 (L) 40.5 - [facility] 48.5 % [facility] LABORATORY MCV 96.1 (H) 82.9 - [facility] 93.1 [facility] LABORATORY MCH 32.9 (H) 27.5 - [facility] 32.1 pg [facility] LABORATORY MCHC 34.2 32.0 - [facility] 35.7 g/dL [facility] LABORATORY Platelets 198 145 - 357 [facility] x10(3)/[facility] LABORATORY RDWSD 44.9 36.0 - [facility] 45.0 [facility] LABORATORY RDWCV 12.6 11.4 - [facility] 13.8 % [facility] LABORATORY MPV 10.0 7.6 - 12.9 [facility] LABORATORY nRBC % Auto 0.3 % [facility] LABORATORY nRBC Abs Auto 0.020 (H) 0.000 - [facility] 0.000 [facility] x10(3)/[facility] LABORATORY Specimen Anatomical Collection Method Collection Time Receive d Time (Source) Location / / Volume Laterality Blood 05/21/2022 6:15 AM 2 6:38 EDT AM EDT Resulting Agency Comment Spec In Lab Edward Rodríguez MD HEMATOLOGY ORDERABLES Performing Organization Address City/State/[place] [address] EKG 12 Lead (05/20/2022 7:04 PM EDT) Component Value Ref Range Test Analysis Performed Pathologis t Method Time At Signature Ventricular rate 101 BPM MUSE SYSTEM QRS Duration 116 ms MUSE SYSTEM Q-T Interval 378 ms MUSE SYSTEM QTC Calculated 490 ms MUSE SYSTEM (Bezet) Calculated R [place] -53 degrees MUSE SYSTEM Calculated T [place] 101 degrees MUSE SYSTEM INTERPRETATION Atrial fibrillation [...] SYSTEM - 05/20/2022 7:09 PM ED T ?[facility] ? Cardiac Cathete rization/Intervention Report ? Patient Name: Koko Zamora. ? Procedure Date: 05/20/2022 ? A #: [id number] ? Primary Physician: Abundio Servin ? Case #: [id number] ? File Name: [id number] ? Catheterization Order Number: [id number] ? [facility] ? Final Report [place], [place] ? Patient Name: ? Koko J. Klarissa uson ? ID#: ?[id number] ? : ?1940 ? Procedure Date: ? [...] ?3.5 guiding catheter and a 3.5 Fr [facility] [address] ??20 Mhz. ??Imaging ?was successful. ??Image [...] A premounted 2. 75 x 30 mm Corcoran Galt (AMPARO) was deployed ? with a maximum [...] may require ?modification of this regimen. C [facility] for ?questions. ?The 1 year [...] 123 65 - 199 [facility] mg/dL [facility] LABORATORY Comment: Supplemental ranges: <140 mg/dL before meals <180 mg/dL all other times of the day Specimen Anatomical Collection Method Collection Time Receive d Time (Source) Location / / Volume Laterality Blood 05/20/2022 5:42 PM 5:42 EDT PM EDT Fito Summers MD POINT OF CARE TEST ORDERABLE S Performing Organization Address City/State/ZIP [place] [address] (ABNORMAL) BMP w/fasting Glucose (05/20/2022 10:50 AM EDT) P athologist Signature Glucose 152 (H) 65 - 99 [facility] Fasting mg/dL [facility] LABORATORY [...] of Diabetes Mellitus, Position Statement from the [place] [employer]. ??Diabete s Care, Volume 33, [...] Organization Address City/State/[place] [address] Heparin (unfractionated) Level (05/20/2022 5:02 AM EDT) athologist Signature Heparin UFH 0.57 IU/mL [facility] LABORATORY Comment: Heparin (anti-Xa) levels should be [...] Organization Address City/State/[place] [address] (ABNORMAL) Differential, Automated (05/20/2022 5:02 AM EDT) [facility] Method Time Signature Neutrophils % 58.1 % [facility] LABORATORY Neutr Abs (ANC) 4.52 1.70 - [facility] 6.10 [facility] x10(3)/[facility] LABORATORY Lymphocytes % 24.1 % [facility] LABORATORY Lymphocytes Abs 1.9 0.9 - 3.2 [facility] x10(3)/[facility] LABORATORY Monocytes % 13.8 % [facility] LABORATORY Monocyte Abs 1.1 (H) 0.3 - 0.9 [facility] x10(3)/[facility] LABORATORY Eosinophils % 2.6 % [facility] LABORATORY Eosinophils Abs 0.2 0.0 - 0.4 [facility] x10(3)/[facility] LABORATORY Basophils % 0.8 % [facility] LABORATORY Basophils Abs 0.1 0.0 - 0.1 [facility] x10(3)/[facility] LABORATORY Immature Gran % 0.60 % [facility] LABORATORY Comment: [...] Organization Address City/State/[place] [address] (ABNORMAL) Hemogram (05/20/2022 5:02 AM EDT) Analysis Performed At Patho logist Time Signature WBC 7.8 4.0 - 9.5 [facility] x10(3)/[facility] LABORATORY RBC 3.53 (L) 4.58 - [facility] 5.54 [facility] x10(6)/[facility] LABORATORY Hemoglobin 11.4 (L) 13.7 - [facility] 16.5 g/dL [facility] LABORATORY Hematocrit 34.3 (L) 40.5 - [facility] X[facility]O 48.5 % [facility] LABORATORY MCV 97.2 (H) 82.9 - [facility] 93.1 [facility] LABORATORY MCH 32.3 (H) 27.5 - [facility] 32.1 pg [facility] LABORATORY MCHC 33.2 32.0 - [facility] 35.7 g/dL [facility] LABORATORY Platelets 181 145 - 357 [facility] x10(3)/[facility] LABORATORY RDWSD 46.4 (H) 36.0 - [facility] 45.0 [facility] LABORATORY RDWCV 13.0 11.4 - [facility] 13.8 % [facility] LABORATORY MPV 10.4 7.6 - 12.9 [facility] LABORATORY nRBC % Auto 0.0 % [facility] LABORATORY nRBC Abs Auto 0.000 0.000 - [facility] 0.000 [facility] x10(3)/[facility] LABORATORY Specimen Anatomical Collection Method Collection Time Receive d Time (Source) Location / / Volume Laterality Blood 05/20/2022 5:02 AM 2 5:19 EDT AM EDT Resulting Agency Comment Spec In Lab Edward Rodríguez MD HEMATOLOGY ORDERABLES Performing Organization Address City/[facility]/ZIP Code Phon e Number [place] [id number] HOSPITAL LAB[address]ORY Drive Heparin (unfractionated) Level (05/19/2022 3:26 AM EDT) P athologist Signature Heparin UFH 0.59 IU/mL [facility] LABORATORY Comment: Heparin (anti-Xa) levels should be [...] Summers MD HEMATOLOGY ORDERABLES Performing Organization Address City/[facility]/ZIP Code Phon e Number [address] (ABNORMAL) Differential, Automated (05/19/2022 3:26 AM EDT) Patholo gist Method Time Signature Neutrophils % 62.1 % [facility] LABORATORY Neutr Abs (ANC) 4.59 1.70 - [facility] 6.10 [facility] x10(3)/[facility] LABORATORY Lymphocytes % 22.1 % [facility] LABORATORY Lymphocytes Abs 1.6 0.9 - 3.2 [facility] x10(3)/[facility] LABORATORY Monocytes % 13.5 % [facility] LABORATORY Monocyte Abs 1.0 (H) 0.3 - 0.9 [facility] x10(3)/[facility] LABORATORY Eosinophils % 1.3 % [facility] LABORATORY Eosinophils Abs 0.1 0.0 - 0.4 [facility] x10(3)/[facility] LABORATORY Basophils % 0.5 % [facility] LABORATORY Basophils Abs 0.0 0.0 - 0.1 [facility] x10(3)/[facility] LABORATORY Immature Gran % 0.50 % [facility] LABORATORY Comment: Immature granulocytes(IG's)percentage an d absolute count will include metamyelocytes, myelocytes, and promyelo cytes. Blood smears from CBCs yielding IG's will be scanned manually for concor dance. If this scan disagrees with the automated IG or if promyelocytes are not ed, a manual differential will be performed. Rain Gran Abs 0.04 0.00 - 0.04 x10(3)/[facility] LABORATORY Specimen Anatomical Collection Method Collection Time Receive d Time (Source) Location / / Volume Laterality Blood 05/19/2022 3:26 AM 2 3:59 EDT AM EDT Resulting Agency Comment Spec In Lab Edward Rodríguez MD HEMATOLOGY ORDERABLES Performing Organization Address City/State/[place] [address] (ABNORMAL) Hemogram (05/19/2022 3:26 AM EDT) Analysis Performed At Patho logist Time Signature WBC 7.4 4.0 - 9.5 [facility] x10(3)/[facility] LABORATORY RBC 3.74 (L) 4.58 - [facility] 5.54 [facility] x10(6)/[facility] LABORATORY Hemoglobin 12.1 (L) 13.7 - [facility] 16.5 g/dL [facility] LABORATORY Hematocrit 36.4 (L) 40.5 - [facility] 48.5 % [facility] LABORATORY MCV 97.3 (H) 82.9 - [facility] 93.1 [facility] LABORATORY MCH 32.4 (H) 27.5 - [facility] 32.1 pg [facility] LABORATORY MCHC 33.2 32.0 - [facility] [place] 35.7 g/dL [facility] LABORATORY Platelets 168 145 - 357 [facility] x10(3)/[facility] LABORATORY RDWSD 46.9 (H) 36.0 - [facility] [place] 45.0 [facility] LABORATORY RDWCV 13.0 11.4 - [facility] 13.8 % [facility] LABORATORY MPV 10.5 7.6 - 12.9 [facility] LABORATORY nRBC % Auto 0.0 % [facility] LABORATORY nRBC Abs Auto 0.000 0.000 - [facility] 0.000 [facility] x10(3)/[facility] LABORATORY Specimen Anatomical Collection Method Collection Time Receive d Time (Source) Location / / Volume Laterality Blood 05/19/2022 3:26 AM 2 3:59 EDT AM EDT Resulting Agency Comment Spec In Lab Edward Rodríguez MD HEMATOLOGY ORDERABLES Performing Organization Address City/State/[place] [address] TSH (05/18/2022 8:00 PM EDT) P athologist Signature TSH 2.27 0.27 - 4.20 [facility] mcIU/mL [facility] LABORATORY Comment: Reference Interval (mcIU/mL): Females: ??First Trimester: 0.23-3.88 ??Second Trimester: 0.22-3.90 ??Third Trimester: 0.44-4.66 Specimen Anatomical Collection Method Collection Time Receive d Time (Source) Location / / Volume Laterality Blood 05/18/2022 8:00 PM 8:06 EDT PM EDT Resulting Agency Comment Spec In Lab Fito Summers MD CHEMISTRY ORDERABLES Performing Organization Address City/[facility]/ZIP Code Phon e Number [place] [phone] [facility] LABORATORY Drive (ABNORMAL) Differential, Automated (05/18/2022 3:34 AM EDT) [facility] Method Time Signature Neutrophils % 67.2 % [facility] LABORATORY Neutr Abs (ANC) 5.89 1.70 - [facility] 6.10 [facility] x10(3)/[facility] LABORATORY Lymphocytes % 17.1 % [facility] LABORATORY Lymphocytes Abs 1.5 0.9 - 3.2 [facility] x10(3)/[facility] LABORATORY Monocytes % 13.6 % [facility] LABORATORY Monocyte Abs 1.2 (H) 0.3 - 0.9 [facility] x10(3)/[facility] LABORATORY Eosinophils % 1.0 % [facility] LABORATORY Eosinophils Abs 0.1 0.0 - 0.4 [facility] x10(3)/[facility] LABORATORY Basophils % 0.6 % [facility] LABORATORY Basophils Abs 0.0 0.0 - 0.1 [facility] x10(3)/[facility] LABORATORY Immature Gran % 0.50 % [facility] LABORATORY Comment: Immature granulocytes(IG's)percentage an d absolute count will include metamyelocytes, myelocytes, and promyelo cytes. Blood smears from CBCs yielding IG's will be scanned manually for concor dance. If this scan disagrees with the automated IG or if promyelocytes are not ed, a manual differential will be performed. Rain Gran Abs 0.04 0.00 - 0.04 x10(3)/[facility] LABORATORY Specimen Anatomical Collection Method Collection Time Receive d Time (Source) Location / / Volume Laterality Blood 05/18/2022 3:34 AM 3:48 EDT AM EDT Resulting Agency Comment Spec In Lab Edward Rodríguez MD HEMATOLOGY ORDERABLES Performing Organization Address City/[facility]/[place] [address] (ABNORMAL) Hemogram (05/18/2022 3:34 AM EDT) Analysis Performed At Patho logist Time Signature WBC 8.8 4.0 - 9.5 [facility] x10(3)/[facility] LABORATORY RBC 3.45 (L) 4.58 - [facility] 5.54 [facility] x10(6)/[facility] LABORATORY Hemoglobin 11.2 (L) 13.7 - [facility] 16.5 g/dL [facility] LABORATORY Hematocrit 33.0 (L) 40.5 - [facility] 48.5 % [facility] LABORATORY MCV 95.7 (H) 82.9 - [facility] 93.1 [facility] LABORATORY MCH 32.5 (H) 27.5 - [facility] 32.1 pg [facility] LABORATORY MCHC 33.9 32.0 - [facility] 35.7 g/dL [facility] LABORATORY Platelets 130 (L) 145 - 357 [facility] x10(3)/[facility] LABORATORY RDWSD 46.2 (H) 36.0 - [facility] 45.0 [facility] LABORATORY RDWCV 13.2 11.4 - [facility] 13.8 % [facility] LABORATORY MPV 10.8 7.6 - 12.9 [facility] LABORATORY nRBC % Auto 0.0 % [facility] LABORATORY nRBC Abs Auto 0.000 0.000 - [facility] 0.000 [facility] x10(3)/[facility] LABORATORY Specimen Anatomical Collection Method Collection Time Receive d Time (Source) Location / / Volume Laterality Blood 05/18/2022 3:34 AM 3:48 EDT AM EDT Resulting Agency Comment Spec In Lab Edward Rodríguez MD HEMATOLOGY ORDERABLES Performing Organization Address City/State/[place] [address] Heparin (unfractionated) Level (05/18/2022 3:34 AM EDT) P athologist Signature Heparin UFH 0.59 IU/mL [facility] LABORATORY Comment: Heparin (anti-Xa) levels should be [...] Summers MD HEMATOLOGY ORDERABLES Performing Organization Address City/[facility]/ZIP [place] [address] Magnesium (05/17/2022 3:33 AM EDT) athologist Signature Magnesium 0.76 0.69 - 1.07 [facility] mmol/L [facility] LABORATORY Specimen Anatomical Collection Method Collection Time Receive d Time (Source) Location / / Volume Laterality Blood Venous Draw / 05/17/2022 3:33 AM 05/17/20 4:05 Unknown EDT AM EDT Resulting Agency Comment Spec In Lab Dottie Hill APRN CHEMISTRY ORDERABLES Performing Organization Address City/[facility]/ZIP [place] [address] (ABNORMAL) Basic Metabolic Panel (non-fasting) (05/17/2022 3:33 AM EDT) athologist Signature Glucose Lvl 158 65 - 199 [facility] mg/dL [facility] LABORATORY Comment: Diabetes: >=200 mg/dL plus symp toms BUN 12 10 - 20 mg/dL [facility] LABORATORY Creatinine 0.74 (L) 0.80 - [...] estions. Chloride 102 98 - 107 mmol/L [facility] LABORATORY CO2 25 22 - 31 mmol/L [facility] LABORATORY Anion Gap 10 5 - 15 mmol/L [facility] LABORATORY Calcium 8.4 (L) 8.5 - 10.5 mg/dL [facility] LABORATORY Estimated GFR 92 >=60 mL/min/1.73 m?? [facility] [...] Organization Address City/State/[place] [address] (ABNORMAL) Differential, Automated (05/17/2022 3:33 AM EDT) [facility] Method Time Signature Neutrophils % 65.5 % [facility] LABORATORY Neutr Abs (ANC) 6.84 (H) 1.70 - [facility] 6.10 [facility] x10(3)/[facility] LABORATORY Lymphocytes % 19.7 % [facility] LABORATORY Lymphocytes Abs 2.1 0.9 - 3.2 [facility] x10(3)/[facility] LABORATORY Monocytes % 13.1 % [facility] LABORATORY Monocyte Abs 1.4 (H) 0.3 - 0.9 [facility] x10(3)/[facility] LABORATORY Eosinophils % 0.6 % [facility] LABORATORY Eosinophils Abs 0.1 0.0 - 0.4 [facility] x10(3)/[facility] LABORATORY Basophils % 0.6 % [facility] LABORATORY Basophils Abs 0.1 0.0 - 0.1 [facility] x10(3)/[facility] LABORATORY Immature Gran % 0.50 % [facility] LABORATORY Comment: [...] Organization Address City/State/[place] [address] (ABNORMAL) Hemogram (05/17/2022 3:33 AM EDT) Analysis Performed At Patho logist Time Signature WBC 10.4 (H) 4.0 - 9.5 [facility] x10(3)/[facility] LABORATORY RBC 3.72 (L) 4.58 - [facility] 5.54 [facility] x10(6)/[facility] LABORATORY Hemoglobin 12.0 (L) 13.7 - [facility] 16.[facility] g/dL [facility] LABORATORY Hematocrit 36.4 (L) 40.5 - [facility] 48.5 % [facility] LABORATORY MCV 97.8 (H) 82.9 - [facility] 93.1 [facility] LABORATORY MCH 32.3 (H) 27.5 - [facility] 32.1 pg [facility] LABORATORY MCHC 33.0 32.0 - [facility] [place] 35.7 g/dL [facility] LABORATORY Platelets 149 145 - 357 [facility] x10(3)/[facility] LABORATORY RDWSD 48.7 (H) 36.0 - [facility] [place] 45.0 [facility] LABORATORY RDWCV 13.5 11.4 - [facility] 13.8 % [facility] LABORATORY MPV 10.6 7.6 - 12.9 [facility] LABORATORY nRBC % Auto 0.0 % [facility] LABORATORY nRBC Abs Auto 0.000 0.000 - [facility] 0.000 [facility] x10(3)/[facility] LABORATORY Specimen Anatomical Collection Method Collection Time Receive d Time (Source) Location / / Volume Laterality Blood 05/17/2022 3:33 AM 3:53 EDT AM EDT Resulting Agency Comment Spec In Lab Edward Rodríguez MD HEMATOLOGY ORDERABLES Performing Organization Address City/State/ZIP [place] [address] (ABNORMAL) Urinalysis Microscopic Exam [...] Address City/State/ZIP [place] [address] (ABNORMAL) Urinalysis with reflex Culture (05/16/2022 11:15 PM EDT) Patholo gist Method Time Signature Glucose UA Negative Negative [facility] mg/dL [facility] LABORATORY Protein UA Negative Negative [facility] mg/dL [facility] LABORATORY Bilirubin UA Negative Negative [facility] mg/dL [facility] LABORATORY [...] LABORATORY Blood UA Small (A) Negative mg/dL [facility] LABORATORY Ketones UA Trace (A) Negative mg/dL [facility] LABORATORY Nitrite UA Negative Negative [facility] LABORATORY Leukocytes UA Negative Negative [facility] LABORATORY Appearance UA Clear Clear [facility] LABORATORY Spec [place] UA 1.021 1.005 - 1.030 [facility] LABORATORY Color UA Yellow Yellow [facility] LABORATORY Culture Reflexed No [facility] LABORATORY Specimen Anatomical Collection Method Collection Time Receive d Time (Source) Location / / Volume Laterality Clean Catch 05/16/2022 11:15 05/16/2022 Urine PM EDT 11:30 PM EDT Resulting Agency Comment Spec In Lab Fito Summers MD URINE ORDERABLES Performing Organization Address City/State/[place] [address] Heparin (unfractionated) Level (05/16/2022 10:59 PM EDT) P athologist Signature Heparin UFH 0.65 IU/mL [facility] LABORATORY Comment: Specimen drawn more than one [...] Address City/State/ZIP [place] [address] XR Chest One View [...] who have questions please contact the health regular senior care provider that requested your imaging first. [...] ho have questions please contact the health regular senior care provider that requested your imaging first. Electronically signed by: Tiffanie George MD , [facility] ([phone]), at 05/16/2022 9:27 PM Fito Summers MD IMG DX ORDERABLES EKG 12 Lead (05/16/2022 8:57 PM EDT) Component Value Ref Range Test Analysis Performed Pathologis t Method Time At Signature Ventricular rate 117 BPM MUSE SYSTEM QRS Duration 112 ms MUSE SYSTEM Q-T Interval 346 ms MUSE SYSTEM QTC Calculated 482 ms MUSE SYSTEM (Bezet) Calculated R [place] -48 degrees MUSE SYSTEM Calculated T [place] 111 degrees MUSE SYSTEM INTERPRETATION Atrial fibrillation with rapid ventricular response MUSE SYSTEM Left anterior fascicular block Minimal voltage criteria for LVH, may be normal variant ( [place]ory product ) Nonspecific ST and T wave [...] Summers MD ECG ORDERABLES Performing Organization Address City/[facility]/ZIP Code Phon e Number MUSE SYSTEM Heparin (unfractionated) Level (05/16/2022 4:34 PM EDT) P athologist Signature Heparin UFH 0.53 IU/mL [facility] LABORATORY Comment: Heparin (anti-Xa) levels should be [...] Summers MD HEMATOLOGY ORDERABLES Performing Organization Address City/[facility] [facility]/ZIP [place] [address] ECHOCARDIOGRAM COMPLETE W CONTRAST (05/16/2022 12:49 PM EDT) P athologist Signature EF 28 HEARTLAB SYSTEM Specimen (Source) Anatomical Collection Method Collection Time Re ceived Time Location / / Volume Laterality 05/16/2022 11:22 AM EDT Narrative HEARTLAB SYSTEM - 05/16/2022 1:54 PM EDT ?[facility] ?[address] ? [place] [address] ?Voice: ?Fax: ? Echocardiogram Report Name: KOKO ZAMORA J ?Study Date: 05/16/2022 11:22 AM ? Patient Location: 3WST 0303 B : 1940 ? Height: 67.5 in ? Account: [id number] Age: 81 yrs ? Weight: 176 lb Gender: Male ?BSA: 1.9 m2 Ordering Physician: FITO SUMMERS Referring Physician: MALI FLORIAN Performed By: Jolene Bernard RDCS Exam Location: [facility]. Interpretation Summary Left ventricle is [...] and LV systolic dysfunction are new. Procedure Complete-[id number]. Image enhancement Optiso n was used for [...] note might be different from the original. [facility] [address] [place] [address] Voice: Fax: Echocardiogram Report Name: KOKO ZAMORA Study Date: 05/2022 11:22 AM Patient Location: [facility] 0 303 : 1940 Height: 67.5 in Account: [id number] Age: 81 yrs Weight: 176 lb Gender: Male BSA: 1.9 m2 Ordering Physician: FITO SUMMERS Referring Physician: MALI FLORIAN Performed By: Jolene Bernard [facility] Ex[facility] Location: [facility]. Interpretation Summary Left ventricle is [...] and LV systolic dysfunction are new. Procedure Complete-[id number]. Image enhancement Optiso n was used for [...] (ABNORMAL) Differential, Automated (05/16/2022 3:01 AM EDT) [facility] Method Time Signature Neutrophils % 78.8 % [facility] LABORATORY Neutr Abs (ANC) 9.11 (H) 1.70 - [facility] 6.10 [facility] x10(3)/[facility] LABORATORY Lymphocytes % 9.4 % [facility] LABORATORY Lymphocytes Abs 1.1 0.9 - 3.2 [facility] x10(3)/[facility] LABORATORY Monocytes % 10.9 % [facility] LABORATORY Monocyte Abs 1.3 (H) 0.3 - 0.9 [facility] x10(3)/[facility] LABORATORY Eosinophils % 0.0 % [facility] LABORATORY Eosinophils Abs 0.0 0.0 - 0.4 [facility] x10(3)/[facility] LABORATORY Basophils % 0.3 % [facility] LABORATORY Basophils Abs 0.0 0.0 - 0.1 [facility] x10(3)/[facility] LABORATORY Immature Gran % 0.60 % [facility] LABORATORY Comment: [...] Organization Address City/State/[place] [address] (ABNORMAL) Hemogram (05/16/2022 3:01 AM EDT) Analysis Performed At Patho logist Time Signature WBC 11.6 (H) 4.0 - 9.5 [facility] x10(3)/[facility] LABORATORY RBC 3.62 (L) 4.58 - [facility] 5.54 [facility] x10(6)/[facility] LABORATORY Hemoglobin 12.0 (L) 13.7 - [facility] 16.5 g/dL [facility] Hematocrit 35.3 (L) 40.5 - [facility] 48.5 % [facility] LABORATORY MCV 97.5 (H) 82.9 - [facility] 93.1 [facility] LABORATORY MCH 33.1 (H) 27.5 - [facility] 32.1 pg [facility] LABORATORY MCHC 34.0 32.0 - [facility] 35.7 g/dL [facility] LABORATORY Platelets 151 145 - 357 [facility] x10(3)/[facility] RDWSD 47.6 (H) 36.0 - [facility] 45.0 [facility] RDWCV 13.3 11.4 - [facility] 13.8 % [facility] LABORATORY MPV 10.5 7.6 - 12.9 [facility] LABORATORY nRBC % Auto 0.0 % [facility] LABORATORY nRBC Abs Auto 0.000 0.000 - [facility] 0.000 [facility] x10(3)/[facility] LABORATORY Specimen Anatomical Collection Method Collection Time Receive d Time (Source) Location / / Volume Laterality Blood 05/16/2022 3:01 AM 2 3:36 EDT AM EDT Resulting Agency Comment Spec In Lab Erin Garza MD HEMATOLOGY ORDERABLES Performing Organization Address City/State/ZIP Code Phon e Number [address] Phosphorus (05/16/2022 3:01 AM EDT) athologist Signature Phosphorus 3.7 2.5 - 4.5 [facility] mg/dL [facility] LABORATORY Specimen Anatomical Collection Method Collection Time Receive d Time (Source) Location / / Volume Laterality Blood 05/16/2022 3:01 AM 2 3:36 EDT AM EDT Resulting Agency Comment Spec In Lab Fito Summers MD CHEMISTRY ORDERABLES Performing Organization Address City/State/ZIP Code Phon e Number [address] Magnesium (05/16/2022 3:01 AM EDT) P athologist Signature Magnesium 0.77 0.69 - 1.07 [facility] mmol/L [facility] LABORATORY Specimen Anatomical Collection Method Collection Time Receive d Time (Source) Location / / Volume Laterality Blood 05/16/2022 3:01 AM 2 3:36 EDT AM EDT Resulting Agency Comment Spec In Lab Fito Summers MD CHEMISTRY ORDERABLES Performing Organization Address City/[facility]/ZIP Code Phon e Number [address] (ABNORMAL) Basic Metabolic Panel (non-fasting) (05/16/2022 3:01 AM EDT) P athologist Signature Glucose Lvl 222 (H) 65 - 199 [facility] mg/dL [facility] LABORATORY Comment: Diabetes: >=200 mg/dL plus symp toms BUN 12 10 - 20 mg/dL [facility] LABORATORY Creatinine 0.66 (L) 0.80 - [...] mmol/L [facility] LABORATORY CO2 22 22 - 31 mmol/L [facility] LABORATORY Anion Gap 8 5 - 15 mmol/L [facility] LABORATORY Calcium 8.2 (L) 8.5 - 10.5 mg/dL [facility] LABORATORY Estimated GFR 95 >=60 mL/min/1.73 m?? [facility] [...] Organization Address City/State/[place] [address] (ABNORMAL) BLOOD GAS 2 ARTERIAL (05/15/2022 3:33 PM EDT) Analysis Performed At Patho logist Time Signature pH Art 7.33 (L) 7.35 - [facility] 7.45 [facility] LABORATORY pCO2 Art 41 35 - 45 [facility] LABORATORY pO2 Art 131 (H) 85 - 104 [facility] LABORATORY HCO3 Art 21.1 20.0 - [facility] 26.0 [facility] mmol/L [facility] LABORATORY BE Art -4.8 (L) -3.0 - 3.0 [facility] mmol/L [facility] LABORATORY Hgb Blood Gas 13.4 (L) 13.7 - [facility] 16.5 g/dL [facility] O2HB Art 96.9 94.0 - [facility] 97.0 % [facility] COHB Art 1.4 % [facility] Organization Address City/State/[place] [address] (ABNORMAL) BLOOD GAS 2 ARTERIAL (05/15/2022 2:06 PM EDT) Analysis Performed At Patho logist Time Signature pH Art 7.39 7.35 - [facility] 7.45 [facility] LABORATORY pCO2 Art 35 35 - 45 [facility] mmHg [facility] LABORATORY pO2 Art 135 (H) 85 - 104 [facility] LABORATORY HCO3 Art 20.8 20.0 - [facility] 26.0 [facility] mmol/L [facility] LABORATORY BE Art -4.2 (L) -3.0 - 3.0 [facility] mmol/L [facility] LABORATORY Hgb Blood Gas 14.5 13.7 - [facility] 16.5 g/dL [facility] O2HB Art 97.2 (H) 94.0 - [facility] 97.0 % [facility] LABORATORY COHB Art 1.2 % [facility] LABORATORY Comment: Nonsmokers: 0.5-1.5% COHB Smokers: Variable, but usually less than 10% Toxic: 20-30% COHB Lethal: Greater than 60% COHB METHB Art 0.3 <=1.5 % [facility] LABORATORY Na Whole Blood 140 135 - 145 mmol/L [facility] LABORATORY K Whole Blood 3.8 3.5 - 5.0 mmol/L [facility] LABORATORY Comment: Please note: Patients with WBC >100,000 may have falsely elevated Potassium levels. Contact the Clinical Chemistry L aboratory if there are any questions. ICa Whole Blood 1.12 (L) 1.15 - 1.33 mmol/L [facility] [...] Torre MD CHEMISTRY ORDERABLES Performing Organization Address City/[facility]/ZIP [facility] Phon e Number [place] [phone]OS[address] (ABNORMAL) Prothrombin Time (05/15/2022 12:30 PM EDT) P athologist Signature PT 12.9 (H) 9.4 - 12.5 [facility] LABORATORY INR 1.1 [facility] [...] Morales DO HEMATOLOGY ORDERABLES Performing Organization Address [facility] [place] [address] (ABNORMAL) APTT (05/15/2022 12:30 [...] Address City/State/ZIP [place] [address] Gold Tube HOLD (05/15/2022 12:20 PM EDT) P athologist Signature Gold Hold Sample in [facility]. [facility] LABORATORY Specimen Anatomical Collection Method Collection Time Receive d Time (Source) Location / / Volume Laterality Blood No Charge / 05/15/2022 12:20 05/15/2022 Unknown PM EDT 12:20 PM EDT Lc Tan Kimberly PA CHEMISTRY ORDERABLES Performing Organization Address City/[facility]/ZIP Code Phon e Number [address] Type and Screen Validity (05/15/2022 12:00 PM EDT) [facility] Method Time Signature T&S only valid [facility] LABORATORY Comment: This Type and Screen result is only valid at the [facility] Specimen Anatomical Collection Method Collection Time Receive d Time (Source) Location / / Volume Laterality Blood 05/15/2022 12:00 05/15/2022 PM EDT 12:17 PM EDT Resulting Agency Comment Spec In Lab Lc Lillyon PA BLOOD BANK ORDERABLES Performing Organization Address City/[facility]/ZIP Code Phon e Number [address] ABORH Recheck Status (05/15/2022 12:00 PM EDT) [facility] Method Time Signature ABORH Recheck Order Placed [facility] K Order [facility] LABORATORY ABORH Type Complete [facility] LABORATORY Specimen Anatomical Collection Method Collection Time Receive d Time (Source) Location / / Volume Laterality Blood 05/15/2022 12:00 05/15/2022 PM EDT 12:17 PM EDT Resulting Agency Comment Spec In Lab Lc Lillyon PA BLOOD BANK ORDERABLES Performing Organization Address City/State/ZIP [place] [address] CK (05/15/2022 12:00 PM EDT) P athologist Signature CK, Total 87 0 - 200 [facility] unit/L [facility] LABORATORY Specimen Anatomical Collection Method Collection Time Receive d Time (Source) Location / / Volume Laterality Blood Venous Draw / 05/15/2022 12:00 05/15/2022 Unknown PM EDT 12:19 PM EDT Resulting Agency Comment Spec In Lab Fito Summers MD CHEMISTRY ORDERABLES Performing Organization Address City/State/ZIP [place] [address] Antibody screen (05/15/2022 12:00 PM EDT) [facility] Method Time Signature Ab Screen Negative [facility] LABORATORY Expires at 05/18/2022 [facility] [id number] on: [facility] LABORATORY Specimen Anatomical Collection Method Collection Time Receive d Time (Source) Location / / Volume Laterality Blood 05/15/2022 12:00 05/15/2022 PM EDT 12:17 PM EDT Resulting Agency Comment Spec In Lab Lc TRIPP BLOOD BANK ORDERABLES Performing Organization Address City/[facility]/ZIP Code Phon e Number [address] ABO/Rh Typing (05/15/2022 12:00 PM EDT) athologist Signature ABORh Type O Pos [facility] LABORATORY Specimen Anatomical Collection Method Collection Time Receive d Time (Source) Location / / Volume Laterality Blood 05/15/2022 12:00 05/15/2022 PM EDT 12:17 PM EDT Resulting Agency Comment Spec In Lab Lc TRIPP BLOOD BANK ORDERABLES Performing Organization Address City/[facility]/ZIP Code Phon e Number [address] (ABNORMAL) Differential, Automated (05/15/2022 12:00 PM EDT) [facility] Method Time Signature Neutrophils % 79.4 % [facility] LABORATORY Neutr Abs (ANC) 7.49 (H) 1.70 - [facility] 6.10 [facility] x10(3)/[facility] L LABORATORY Lymphocytes % 11.3 % [facility] LABORATORY Lymphocytes Abs 1.1 0.9 - 3.2 [facility] x10(3)/[facility] LABORATORY Monocytes % 7.8 % [facility] LABORATORY Monocyte Abs 0.7 0.3 - 0.9 [facility] x10(3)/[facility] LABORATORY Eosinophils % 0.6 % [facility] LABORATORY Eosinophils Abs 0.1 0.0 - 0.4 [facility] x10(3)/[facility] LABORATORY Basophils % 0.6 % [facility] LABORATORY Basophils Abs 0.1 0.0 - 0.1 [facility] x10(3)/[facility] LABORATORY Immature Gran % 0.30 % [facility] LABORATORY Comment: Immature granulocytes(IG's)percentage an d absolute count will include metamyelocytes, myelocytes, and promyelo cytes. Blood smears from CBCs yielding IG's will be scanned manually for concor dance. If this scan disagrees with the automated IG or if promyelocytes are not ed, a manual differential will be performed. Rain Gran Abs 0.03 0.00 - 0.04 x10(3)/[facility] LABORATORY Specimen Anatomical Collection Method Collection Time Receive d Time (Source) Location / / Volume Laterality Blood 05/15/2022 12:00 05/15/2022 PM EDT 12:19 PM EDT Resulting Agency Comment Spec In Lab Lc TRIPP HEMATOLOGY ORDERABLES Performing Organization Address City/State/[place] [address] (ABNORMAL) Hemogram (05/15/2022 12:00 PM EDT) Analysis Performed At Patho logist Time Signature WBC 9.4 4.0 - 9.5 [facility] x10(3)/[facility] LABORATORY RBC 4.48 (L) 4.58 - [facility] 5.54 [facility] x10(6)/[facility] LABORATORY Hemoglobin 14.5 13.7 - [facility] 16.5 g/dL [facility] LABORATORY Hematocrit 42.4 40.5 - [facility] 48.5 % [facility] LABORATORY MCV 94.6 (H) 82.9 - [facility] 93.1 [facility] LABORATORY MCH 32.4 (H) 27.5 - [facility] 32.1 pg [facility] LABORATORY MCHC 34.2 32.0 - [facility] 35.7 g/dL [facility] LABORATORY Platelets 209 145 - 357 [facility] x10(3)/[facility] LABORATORY RDWSD 45.9 (H) 36.0 - [facility] 45.0 [facility] LABORATORY RDWCV 13.1 11.4 - [facility] 13.8 % [facility] LABORATORY MPV 10.5 7.6 - 12.9 [facility] LABORATORY nRBC % Auto 0.0 % [facility] LABORATORY nRBC Abs Auto 0.000 0.000 - [facility] 0.000 [facility] x10(3)/[facility] LABORATORY Specimen Anatomical Collection Method Collection Time Receive d Time (Source) Location / / Volume Laterality Blood 05/15/2022 12:00 05/15/2022 PM EDT 12:19 PM EDT Resulting Agency Comment Spec In Lab Lc TRIPP HEMATOLOGY ORDERABLES Performing Organization Address City/State/[place] [address] (ABNORMAL) Basic Metabolic Panel (non-fasting) (05/15/2022 12:00 PM EDT) P athologist Signature Glucose Lvl 203 (H) 65 - 199 [facility] mg/dL [facility] LABORATORY Comment: Diabetes: >=200 mg/dL plus symp toms BUN 16 10 - 20 mg/dL [facility] LABORATORY Creatinine 0.84 0.80 - 1.50 [...] [facility] LABORATORY Anion Gap 11 5 - 15 mmol/L [facility] LABORATORY Calcium 8.5 8.5 - 10.5 mg/dL [facility] LABORATORY Estimated GFR 89 >=60 mL/min/1.73 m?? [facility] [...] Organization Address City/State/[place] [address] documented in this encounter [...] - Reason: Transfer to a Procedural area)1955 ([facility] Unhold - Provider: Admin Adt) 0815 (Given - Provider: Etta contreras, RN) 1,000 mcg, Oral, DAILY, First dose on 05/16/22 at 0900, Until Discontinued, Routine metoprolol tartrate (Lopressor) tablet 12.5 mg (CANCEL ED) 0838 (Given - Provider: Caroline Zamora, RN)2008 (Given - Provider: Nuris Lester, DION) 0853 (Given - Provider: Barbie Joyce RN)1750 ([facility] Hold - Provider: Admin Adt - Reason: Transfer to a Procedural area)1955 ([facility] Unhold - Provider: Admin Adt)2004 [...] 0852 (Given - Provider: Barbie Joyce RN)1750 ([facility] Hold - Provider: Admin Adt - Reason: Transfer to a Procedural area)1955 ([facility] Unhold - Provider: Admin Adt) [...] - Reason: Transfer to a Procedural area)1955 ([facility] Unhold - Provider: Admin Adt) 0817 (Given - Provider: Etta contreras RN) 0.4 mg, Oral, DAILY, First dose on Brandi at 0900, Until Discontinued, DO NOT CRUSH OR OPEN, Routine thiamine (Vitamin B1) tablet 100 mg 0838 (Given - Prov ider: Caroline Zamora, DION) 0853 (Given - Provider: Barbie Joyce RN)1750 ([facility] Hold - Provider: Admin Adt - Reason: Transfer to a Procedural area)1955 ([facility] Unhold - Provider: Admin Adt) 0816 (Given - Provider: Etta contreras RN) 100 mg, Oral, DAILY, First dose on Brandi at 0900, Until Discontinued, Routine valsartan (Diovan) tablet 40 mg 0838 (Given - Provider : Caroline Zamora, DION)2008 (Given - Provider: Nuris Lester RN) 0853 (Given - Provider: Barbie Joyce RN)1750 ([facility] Hold - Provider: Admin Adt - Reason: Transfer to a Procedural area)1955 ([facility] Unhold - Provider: Admin Adt)2005 [...] (New Bag - Provider: Barbie Joyce RN)1750 ([facility] Hold - Provider: Admin Adt - Reason: Transfer to a Procedural area)1955 ([facility] Unhold - Provider: Admin Adt) [...] Admin Adt) 0-8,000 Units, Intravenous, BOLUS PER [facility] PROTOCOL, Starting on Brandi 05/16/22 at 0758, [...]
Routine documented in this encounter Care Teams Disability Specialist Relationship Specialty Start Date End Date Bobby Das MD PCP - General 10/02/[address] [place] [address] [place] [phone] documented as of this encounter
--- OUTSIDE RECORDS SUMMARY | 2022-07-08 09:50 | XMS_ITS | Encounter Summary ---
:1940 Author Organization [facility] Address [facility] [place] [address] Care Team Providers Name Role Phone Bobby Das MD Primary Care Provider Reason for Visit - Closed Specialty Diagnoses / Procedures Referred By Contact Refer red To Contact Procedures Bobby Das MD Film Library- Storage Only DX [address] [place] [address] [phone] Referral ID Status Reason Start Date Expiration Date Visits Requ ested Visits Authorized [id number] Closed 04/13/2021 04/13/2022 1 1 Encounter Details Date Type Department Care Team Description 01/31/2021 Ancillary Procedure Radiology Library at Bobby Almaguer MD [address] [phone] (Rebekah rojas) Social History Tobacco Use Types [...] Office Visit Gastroenterology Negra Collins MD [facility] DR GASTROENTEROLOGY DEPT [place], [place] [address] (Wo rk) 09/05/2022 Appointment Cardiology Trinity Reid MD [facility] ER CARDIOLOGY [place] [address] (Wo rk) 09/05/2022 Office Visit Cardiology Trinity Reid MD [facility] ER CARDIOLOGY [place] [address] (Wo rk) documented as of this [...] Organization Address City/State/ZIP Code Phon e Number [place], [place] documented in this encounter Visit Diagnoses Not on filedocumented in this encounter Care Teams Wildlife Policy Professional Relationship Specialty Start Date End Date Bobby Das MD PCP - General 10/02/[address] [place] [address] [place] [phone] documented as of this encounter
--- OUTSIDE RECORDS SUMMARY | 2022-07-08 09:50 | XMS_ITS | Encounter Summary ---
:1940 Author Organization [facility] [place] [address] Care Team Providers Name Role Phone Bobby Das MD Primary Care Provider Encounter Details Date Type Department Care Team Description 09/22/2020 Telephone Pain and Spine Leon reid at [facility] [place] [address] Social History Tobacco Use Types Packs/Day [...] MD [facility] GASTROENTEROLOGY DEPT [place], [place] [address] (Wo rk) 09/05/2022 Appointment Cardiology Trinity Reid MD [facility] ER CARDIOLOGY [place], [place] [address] (Wo rk) 09/05/2022 Office Visit Cardiology Trinity Reid MD [facility] ER CARDIOLOGY [place], [place] [address] (Wo rk) documented as of this encounter Visit Diagnoses Not on filedocumented in this encounter Care Teams Horse Doctor Relationship Specialty Start Date End Date Bobby Das MD PCP - General 10/02/[address] [place] [address] [place] [phone] documented as of this encounter
--- OUTSIDE RECORDS SUMMARY | 2022-07-08 09:50 | XMS_ITS | Encounter Summary ---
:1940 Author Organization [facility] [place] [address] Care Team Providers Name Role Phone Bobby Das MD Primary Care Provider Encounter Details Date Type Department Care Team Description 05/15/2022 Ancillary Procedure Radiology Library at [facility], Lavell Butt, [facility] [place] [address] VASCULAR SURGERY [phone] [place] [phone] (Wo rk) Social History Tobacco Use Types [...] 08/08/2022 Office Visit Gastroenterology Negra Collins MD [facility] DR GASTROENTEROLOGY DEPT [place], [place] [address] (Wo rk) 09/05/2022 Appointment Cardiology Trinity Reid MD [facility] CARDIOLOGY [place], [place] [address] (Wo rk) 09/05/2022 Office Visit Cardiology Trinity Reid MD [facility] CARDIOLOGY [place], [place] [address] (Wo rk) documented as of [...] Address City/State/ZIP Code Phon e Number [place], [place] documented in this encounter Visit Diagnoses Not on filedocumented in this encounter Care Teams Proposal Analyst Relationship Specialty Start Date End Date Bobby Das MD PCP - General 10/02/[address] [place] [address] [place] [phone] documented as of this encounter
--- OUTSIDE RECORDS SUMMARY | 2022-07-08 09:50 | XMS_ITS | Encounter Summary ---
:1940 Author Organization [facility] [place] [address] Care Team Providers Name Role Phone Bobby Das MD Primary Care Provider Reason for Referral Consultation (Routine) - Closed Specialty Diagnoses / Procedures Referred By Contact Refer red To Contact Neurology Diagnoses Low back pain, non-specific Status post vertebroplasty Transient left leg weakness EMG Arpita Whitney APRN [facility] [address] [place], [place] [address] [place] [phone] Fax: Referral ID Status Reason Start Date Expiration Date Visits V isits Requested Authorized [id number] Closed Consult, 04/17/2021 04/17/2022 1 1 Test & Treat hysical Therapy (Routine) - Specialty Diagnoses / Procedures Referred By Contact Refer red To Contact Diagnoses Low back pain, non-specific Status post vertebro[place] [address] Referral ID Status Reason Start Date Expiration Date Visits V isits Requested Authorized [id number] Evaluate and 04/17/2021 10/14/2021 12 12 Treat Reason for Visit Reason Comments Back Pain new patient visit Consultation (Routine) - Closed Specialty Diagnoses / Procedures Referred By Contact Refer red To Contact Pain and Spine Center Diagnoses Low back pain Pain - Low back pain/ MRI 02/20/21 & XR 01/31/21 @ [facility] Bobby Das MD [facility] Ctr Pain And [address] [place], [place] [address] [address] [place] [address] Phone: Fax: Referral ID Status Reason Start Date Expiration Date Visits Requ ested Visits Authorized [id number] Closed 03/07/2021 03/07/2022 1 1 Encounter Details Date Type Department Care Team Description 04/17/2021 Office Visit [facility] Sp[facility] Center Arpita Whitney Lo w back pain, non-specific; at [facility] REGISTRATION CLERK Status post vertebroplasty; [facility] Tra nsient left leg weakness Drive [place], [place] [phone] Social History Tobacco [...] from the original note were not included. [facility] Date [...] here for today. Had lumbar imaging and [facility] as ordered by PCP with [...] standing limited due to back pain The [facility] Prescription Monitoring Program was checked. The number of prescriptions reported was 0. Current Medications: Outpatient Medications Marked as Taking for the 04/17/21 encounter (Office Visit) with Arpita Whitney APRN Medication Sig Dispense Refill ??? fluticasone propionate (FLONASE) 50 mcg/actuation [place], Suspension as needed. ??? fluorouraciL (EFUDEX) 5 [...] IR Biopsy Spine 07/20/2019 Bobby Marshall MD [facility] INTERVENTIONL RAD ??? IR VERTEBROPLASTY LUMBAR MULTIPLE LEVELS 07/20/2019 IR Vertebroplasty Lumbar Multiple Levels 07/20/2019 Bobby Marshall MD [facility] INTERVENTION[facility] RAD ??? IR VERTEBROPLASTY THORACIC SINGLE LEVEL 10/25/2020 IR Vertebroplasty Thoracic Single Level 10/25/2020 Matt Chisholm MD [facility] INTERVENTIONL RAD Review of Systems: ROS: [...] y.o. year-old male who presents to the [facility] for Pain and Spine clinic, previously seen [...] Mr. Koko Zamora's care. Arpita Whitney, MSN, BODY PAINTER- C, REGISTRATION CLERK Nurse Practitioner [facility] [place] [address] / [facility] documented in this encounter Plan of Treatment Upcoming Encounters Date Type Specialty Care Team Description 08/08/2022 Office Visit Gastroenterology Negra Collins MD [facility] GASTROENTEROLOGY DEPT [place], [place] [address] (Wo rk) 09/05/2022 Appointment Cardiology Trinity Reid MD [facility] CARDIOLOGY [place], [place] [address] (Wo rk) 09/05/2022 Office Visit Cardiology Trinity Reid MD [facility] CARDIOLOGY [place], [place] [address] (Wo rk) Scheduled Referrals Name [...] limbs documented in this encounter Care Teams Popcorn Vendor Relationship Specialty Start Date End Date Bobby Das MD PCP - General 10/02/[address] [place] [address] [place] [phone] documented as of this encounter
--- OUTSIDE RECORDS SUMMARY | 2022-07-08 09:51 | XMS_ITS | Encounter Summary ---
:1940 Author Organization [facility] [place] [address] Care Team Providers Name Role Phone Bobby Das MD Primary Care Provider Encounter Details Date Type Department Care Team Description 06/26/2018 Ancillary Procedure Radiology Library at Bobby Almaguer MD [facility] [address] [place] [phone] (Wo rk) Social History Tobacco Use Types Packs/Day Years Used Date Current Some Day Smoker 1 50 Smokeless Tobacco: Never Used Sex Assigned at Date Recorded Not on file documented as of this encounter Plan of Treatment Upcoming Encounters Date Type Specialty Care Team Description 08/08/2022 Office Visit Gastroenterology Negra Collins MD [facility] DR GASTROENTEROLOGY DEPT [place], [place] [address] (Wo rk) 09/05/2022 Appointment Cardiology Trinity Reid MD [facility] CARDIOLOGY [place], [place] [address] (Wo rk) 09/05/2022 Office Visit Cardiology Trinity Reid MD [facility] CARDIOLOGY [place], [place] [address] (Wo rk) documented as of [...] Organization Address City/State/ZIP Code Phon e Number [place], [place] documented in this encounter Visit Diagnoses Not on filedocumented in this encounter Care Teams Oil Pump Station Operator Chief Relationship Specialty Start Date End Date Bobby Das MD PCP - General 10/02/[address] [place] [address] [place] [address] documented as of this encounter
--- OUTSIDE RECORDS SUMMARY | 2022-07-08 09:51 | XMS_ITS | Encounter Summary ---
:1940 Author Organization [facility] [place] [address] Care Team Providers Name Role Phone Bobby Das MD Primary Care Provider Encounter Details Date Type Department Care Team Description 12/20/2016 Telephone Pain Management at [facility] Kristin Schultz, RN [facility] [place] [address] Social History Tobacco Use Types Packs/Day [...] MD [facility] GASTROENTEROLOGY DEPT [place], [place] [address] (Wo rk) 09/05/2022 Appointment Cardiology Trinity Reid MD [facility] CARDIOLOGY [place], [place] [address] (Wo rk) 09/05/2022 Office Visit Cardiology Trinity Reid MD [facility] CARDIOLOGY [place], [place] [address] (Wo rk) documented as of this encounter Visit Diagnoses Not on filedocumented in this encounter Care Teams Non Garment Sewing Machine Operator Relationship Specialty Start Date End Date Bobby Das MD PCP - General 10/02/[address] [place] [address] [place] [address] documented as of this encounter
--- OUTSIDE RECORDS SUMMARY | 2022-07-08 09:51 | XMS_ITS | Encounter Summary ---
:1940 Author Organization [facility] [address] Care Team Providers Name Role Phone Bobby Das MD Primary Care Provider Encounter Details Date Type Department Care Team Description 12/16/2016 [facility] [place] [address] Social History Tobacco Use Types Packs/Day [...] Collins MD [facility] GASTROENTEROLOGY DEPT [place], [place] [address] (Wo rk) 09/05/2022 Appointment Cardiology Trinity Reid MD [facility] CARDIOLOGY [place], [place] [address] (Wo rk) 09/05/2022 Office Visit Cardiology Trinity Reid MD [facility] CARDIOLOGY [place], [place] [address] (Wo rk) documented as of this encounter Visit Diagnoses Not on filedocumented in this encounter Care Teams Biology Manager Relationship Specialty Start Date End Date Bobby Das MD PCP - General 10/02/[address] [place] [address] [place] [phone] documented as of this encounter
--- OUTSIDE RECORDS SUMMARY | 2022-07-08 09:51 | XMS_ITS | Encounter Summary ---
:1940 Author Organization [facility] [place] [address] Care Team Providers Name Role Phone Bobby Das MD Primary Care Provider Encounter Details Date Type Department Care Team Description 05/13/2018 Ancillary Procedure Radiology Library at Bobby Almaguer MD [facility] [address] [place] [phone] (Wo rk) Social History Tobacco Use Types Packs/Day Years Used Date Current Some Day Smoker 1 50 Smokeless Tobacco: Never Used Sex Assigned at Date Recorded Not on file documented as of this encounter Plan of Treatment Upcoming Encounters Date Type Specialty Care Team Description 08/08/2022 Office Visit Gastroenterology Negra Collins MD [facility] DR GASTROENTEROLOGY DEPT [place], [place] [address] (Wo rk) 09/05/2022 Appointment Cardiology Trinity Reid MD [facility] CARDIOLOGY [place], [place] [address] (Wo rk) 09/05/2022 Office Visit Cardiology Trinity Reid MD [facility] CARDIOLOGY [place], [place] [address] (Wo rk) documented as of [...] Organization Address City/State/ZIP Code Phon e Number [place], [place] documented in this encounter Visit Diagnoses Not on filedocumented in this encounter Care Teams Hospital Pharmacy Director Relationship Specialty Start Date End Date Bobby Das MD PCP - General 10/02/[address] [place] [address] [place] [address] documented as of this encounter
--- OUTSIDE RECORDS SUMMARY | 2022-07-08 09:51 | XMS_ITS | Encounter Summary ---
:1940 Author Organization [facility] [place] [address] Care Team Providers Name Role Phone Bobby Das MD Primary Care Provider Reason for Visit Reason Onset Date Comments Pre Procedure Call 08/01/2015 Encounter Details Date Type Department Care Team Description 08/01/2015 Telephone Dermatology at [facility] Cassy Jacobson, Pre Procedure Call [address] [place] [address] Social History Tobacco Use Types Packs/Day [...] Negra Collins MD [facility] DR GASTROENTEROLOGY DEPT [place], [place] [address] (Wo rk) 09/05/2022 Appointment Cardiology Trinity Reid MD [facility] CARDIOLOGY [place], [place] [address] (Wo rk) 09/05/2022 Office Visit Cardiology Trinity Reid MD [facility] CARDIOLOGY [place], [place] [address] (Wo rk) documented as of this encounter Visit Diagnoses Not on filedocumented in this encounter Care Teams Portfolio Mgr Relationship Specialty Start Date End Date Bobby Das MD PCP - General 10/02/[address] [place] [address] [place] [address] documented as of this encounter
--- OUTSIDE RECORDS SUMMARY | 2022-07-08 09:51 | XMS_ITS | Encounter Summary ---
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 [address] [place] [address] Fax: Referral ID Status Reason Start Date Expiration Date Visits V isits Requested Authorized [id number] Closed Specialty 07/13/2019 07/12/2020 1 1 Service Requested iagnostic Test (Routine) - Closed Specialty Diagnoses / Procedures Referred By Contact Refer red To Contact Radiology Diagnoses Closed compression fracture of L1 lumbar vertebra with delayed healing, subsequent encounter Malignant neoplasm of prostate Zbigniew Thompson PA [facility] Interventionl Rad Procedures [place] [address] [place] [address] Fax: Referral ID Status Reason Start Date Expiration Date Visits V isits Requested Authorized [id number] Closed Specialty 07/13/2019 07/12/2020 1 1 Service Requested Reason for Visit Reason Comments Back Pain Consultation (ANDREINA) - Closed Specialty Diagnoses / Procedures Referred By Contact Refer red To Contact Pain and Spine Center Diagnoses Collapsed vertebra, not elsewhere classified, lumbar region, subsequent encounter for fracture with routine healing Bobby Das MD [facility] And [facility] [address] [place], [place] [address] [address] [place] [address] Phone: Fax: Referral ID Status Reason Start Date Expiration Date Visits V isits Requested Authorized [id number] Closed Consult, 06/30/2019 06/29/2020 1 1 Test [facility] Treat Connection Center Encounter Details Date Type Department Care Team Description 07/13/2019 Office Visit Pain and Spine Center Zbigniew Thompson, Closed compression fracture of L1 lumbar vertebra with delayed healing, subsequent encounter; at [facility] [place] Malignant neoplasm of prostate; [facility] Age -related 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, sequela [address] [place], [place] [address] [phone] Social History Tobacco Use Types Packs/Day Years [...] 08/08/2022 Office Visit Gastroenterology Negra Collins MD [facility] DR GASTROENTEROLOGY DEPT [place], [place] [address] (Wo rk) 09/05/2022 Appointment Cardiology Trinity Reid MD [facility] CARDIOLOGY [place], [place] [address] (Wo rk) 09/05/2022 Office Visit Cardiology Trinity Reid MD [facility] CARDIOLOGY [place], [place] [address] (Wo rk) documented as of [...] made and a 13g a introducer needle (Haileo) was advanced through the right pedicle and [...] made an d a 13ga introducer needle (Haileo) was advanced through the left pedicle and [...] signed by: Bobby Sullivan MD, [facility] ([phone]), at 07/20/2019 1:20 PM Procedure Note Bobby [...] made and a 13g a introducer needle (Haileo) was advanced through the right pedicle and [...] made an d a 13ga introducer needle (Haileo) was advanced through the left pedicle and [...] made and a 13g a introducer needle (Haileo) was advanced through the right pedicle and [...] made an d a 13ga introducer needle (Haileo) was advanced through the left pedicle and [...] signed by: Bobby Sullivan MD, [facility] ([phone]), at 07/20/2019 1:20 PM Procedure Note Bobby Mrashall MD - 07/20/2019Formatt ing of this note [...] made and a 13g a introducer needle (Haileo) was advanced through the right pedicle and [...] made an d a 13ga introducer needle (Haileo) was advanced through the left pedicle and [...] signed by: Bobby Sullivan MD, [facility] ([phone]), at 07/20/2019 1:20 PM Elmer Loya MD IMG IR ORDERABLES documented [...] sequela documented in this encounter Care Teams Accountant Systems Relationship Specialty Start Date End Date Bobby Das MD PCP - General 10/02/[address] [place] [address] [place] [address] documented as of this encounter
--- OUTSIDE RECORDS SUMMARY | 2022-07-08 09:51 | XMS_ITS | Encounter Summary ---
:1940 Author Organization [place] [address] Care Team Providers Name Role Phone Bobby Das MD Primary Care Provider Encounter Details Date Type Department Care Team Description 09/18/2018 Telephone Dermatology at [facility] Yolanda Fraser RN [address] [place] [address] Social History Tobacco Use Types Packs/Day [...] Who lives with patient (i.e. spouse, children, shelter/penitentiary)? Spouse Relevant travel history or future plans: [...] 08/08/2022 Office Visit Gastroenterology Negra Collins MD [facility] GASTROENTEROLOGY DEPT [place], [place] [address] (Wo rk) 09/05/2022 Appointment Cardiology Trinity Reid MD [facility] CARDIOLOGY [place], [place] [address] (Wo rk) 09/05/2022 Office Visit Cardiology Trinity Reid MD [facility] CARDIOLOGY [place], [place] [address] (Wo rk) documented as of this encounter Visit Diagnoses Not on filedocumented in this encounter Care Teams Flight Control Tower Operator Relationship Specialty Start Date End Date Bobby Das MD PCP - General 10/02/[address] [place] [address] [place] [phone] documented as of this encounter
--- OUTSIDE RECORDS SUMMARY | 2022-07-08 09:51 | XMS_ITS | Encounter Summary ---
:1940 Author Organization [facility] [place] [address] Care Team Providers Name Role Phone Bobby Das MD Primary Care Provider Reason for Visit Reason Comments Basal Cell Carcinoma Consultation (Routine) - Closed Specialty Diagnoses / Procedures Referred By Contact Refer red To Contact Dermatology Diagnoses REQUESTING MOHS PROCEDURE RIGHT EYEBROW FOR LESION REMOVED BUT ADDITIONAL TISSUE REMAINS Bobby Das MD Vidal, Nahid Y, MD [address] [place] [address] [place] [address] [place] [address] Fax: Referral ID Status Reason Start Date Expiration Date Visits V isits Requested Authorized [id number] Closed Consult, 06/24/2018 06/24/2019 1 1 Test & Treat Connection Center Encounter Details Date Type Department Care Team Description 09/23/2018 Procedure visit Dermatology at Alvaro Romano, Basal cell carcinoma Nicol CARCAMO (BCC) of eyebrow [address] [facility] [address] [place] [address] [phone] Social History Tobacco Use Types Packs/Day Years [...] Llanos MD. Your wound(s) was repaired by [id number] stitches called a primary repair. You do [...] until your sutures are removed. 5. Some heel burnisher may need to be delayed or delegated [...] as often as is recommended by your assistant loan processor, for new skin cancers. This is once [...] it. If after hours, please call the dipper machine operator or [phone] and ask for the assistant loan processor on-call. If you have any non-urgent questions or concerns, please feel free to call my office or contact me through our patient portal, [employer], at [email or web address] How to contact us during business hours Dermatology at [facility] Road: Mohs scheduling or Mohs follow-up appointments: [phone] documented in this encounter Progress Notes Alvaro [...] Who lives with patient (i.e. spouse, children, correction/fdc)? Spouse Relevant travel history or future plans: [...] follow up with his or her referring assistant loan processor or other skin provider. Summary of Procedure(s): [...] Date: 09/23/2018 Staff Surgeon: Alvaro Llanos MD Nursing/Pharmacy Stock Clerk(s): Assistants: Cassy Jacobson LPN, Jolene Pretty RN, Yolanda Fraser LPN, Savanah Licea CMA Adjuster Electrical Contacts (s): Cristina Cisneros Amanda Isenor Pre-operative diagnosis: [...] The site was confirmed with the patient/authorized event sales representative/referring physician and/or a photograph form [...] Right eyebrow Indication: repair of wound for gnosticist of function/anatomy Final Defect size: 1.5 x [...] 08/08/2022 Office Visit Gastroenterology Negra Collins MD [facility] [place] [address] (Wo rk) 09/05/2022 Appointment Cardiology Trinity Reid MD [facility] CARDIOLOGY [place], [place] [address] (Wo rk) 09/05/2022 Office Visit Cardiology Trinity Reid MD [facility] CARDIOLOGY [place], [place] [address] (Wo rk) documented as of this encounter Visit Diagnoses Diagnosis Basal cell carcinoma (BCC) of eyebrow documented in this encounter Care Teams Property Developer Relationship Specialty Start Date End Date Bobby Das MD PCP - General 10/02/[address] [place] [address] [place] [address] documented as of this encounter
--- OUTSIDE RECORDS SUMMARY | 2022-07-08 09:51 | XMS_ITS | Encounter Summary ---
:1940 Author Organization [facility] [place] [place] [address] Care Team Providers Name Role Phone Bobby Das MD Primary Care Provider Encounter Details Date Type Department Care Team Description 06/16/2019 Ancillary Procedure Radiology Library at Bobby Almaguer MD [facility] [address] [place] [phone] (Wo rk) Social History Tobacco Use Types Packs/Day Years Used Date Current Some Day Smoker 1 50 Smokeless Tobacco: Never Used Sex Assigned at Date Recorded Not on file documented as of this encounter Plan of Treatment Upcoming Encounters Date Type Specialty Care Team Description 08/08/2022 Office Visit Gastroenterology Negra Collins MD [facility] DR GASTROENTEROLOGY DEPT [place], [place] [address] (Wo rk) 09/05/2022 Appointment Cardiology Trinity Reid MD [facility] CARDIOLOGY [place], [place] [address] (Wo rk) 09/05/2022 Office Visit Cardiology Trinity Reid MD [facility] CARDIOLOGY [place], [place] [address] (Wo rk) documented as of [...] Organization Address City/State/ZIP Code Phon e Number [place], [place] documented in this encounter Visit Diagnoses Not on filedocumented in this encounter Care Teams Neighborhood Planner Relationship Specialty Start Date End Date Bobby Das MD PCP - General 10/02/[address] [place] [address] [place] [address] documented as of this encounter
--- OUTSIDE RECORDS SUMMARY | 2022-07-08 09:51 | XMS_ITS | Encounter Summary ---
:1940 [place] [address] Care Team Providers Name Role Phone Bobby Das MD Primary Care Provider Encounter Details Date Type Department Care Team Description 08/25/2015 Telephone Dermatology at [facility] Gloria Ferrell MD [address] [facility] [place] [address] [facility] [phone] [place], [place] [address] (Wo rk) Social History Tobacco [...] [facility] DR GASTROENTEROLOGY DEPT [place], [place] [address] (Wo rk) 09/05/2022 Appointment Cardiology Trinity Reid MD [facility] CARDIOLOGY [place], [place] [address] (Wo rk) 09/05/2022 Office Visit Cardiology Trinity Reid MD [facility] CARDIOLOGY [place], [place] [address] (Wo rk) documented as of this encounter Visit Diagnoses Not on filedocumented in this encounter Care Teams Customer Logistics Manager Relationship Specialty Start Date End Date Bobby Das MD PCP - General 10/02/[address] [place] [address] [place] [phone] documented as of this encounter
--- OUTSIDE RECORDS SUMMARY | 2022-07-08 09:51 | XMS_ITS | Encounter Summary ---
:1940 Author Organization [facility] Address [address] [place] [address] Care Team Providers Name Role Phone Bobby Das MD Primary Care Provider Reason for Visit - Closed Specialty Diagnoses / Procedures Referred By Contact Refer red To Contact Procedures Bobby Das MD Film Library- Storage Only [facility] [address] Referral ID Status Reason Start Date Expiration Date Visits Requ ested Visits Authorized [id number] Closed 02/23/2021 02/23/2022 1 1 Encounter Details Date Type Department Care Team Description 03/16/2020 Ancillary Procedure Radiology Library at Bobby Almaguer MD [address] [id number] [phone] (Rebekah rojas) Social History Tobacco Use Types [...] MD [facility] GASTROENTEROLOGY DEPT [place], [place] [address] (Wo rk) 09/05/2022 Appointment Cardiology Trinity Reid MD [facility] ER CARDIOLOGY [place], [place] [address] (Wo rk) 09/05/2022 Office Visit Cardiology Trinity Reid MD [facility] ER CARDIOLOGY [place], [place] [address] (Wo rk) documented as of [...] Organization Address City/State/ZIP Code Phon e Number [place], [place] documented in this encounter Visit Diagnoses Not on filedocumented in this encounter Care Teams Ratings Analyst Relationship Specialty Start Date End Date Bobby Das MD PCP - General 10/02/[address] [place] [address] [place] [id number] documented as of this encounter
--- OUTSIDE RECORDS SUMMARY | 2022-07-08 09:51 | XMS_ITS | Encounter Summary ---
:1940 Author Organization [facility] Address [facility] [place] [address] Care Team Providers Name Role Phone Bobby Das MD Primary Care Provider Reason for Visit Reason Onset Date Comments Other 07/19/2011 Encounter Details Date Type Department Care Team Description 07/19/2011 Telephone Cardiology at [place] Chet Nicole [place] [address] CARDIOLOGY DEPT. [phone] [place], [place] [address] (Wo rk) Social History Tobacco [...] Office Visit Gastroenterology Negra Collins MD [facility] GASTROENTEROLOGY DEPT [place], [place] [address] (Wo rk) 09/05/2022 Appointment Cardiology Trinity Reid MD [facility] ER CARDIOLOGY [place], [place] [address] (Wo rk) 09/05/2022 Office Visit Cardiology Trinity Reid MD [facility] ER CARDIOLOGY [place], [place] [address] (Wo rk) documented as of this encounter Visit Diagnoses Not on filedocumented in this encounter Care Teams Plastic Tubing Insulation Supervisor Relationship Specialty Start Date End Date Bobby Das MD PCP - General 10/02/[address] [place] [address] [place] [phone] documented as of this encounter
--- OUTSIDE RECORDS SUMMARY | 2022-07-08 09:51 | XMS_ITS | Encounter Summary ---
:1940 Author Organization [facility] [place] [address] Care Team Providers Name Role Phone Bobby Das MD Primary Care Provider Encounter Details Date Type Department Care Team Description 07/20/2019 Laboratory Lab 3L Ifrah Gastrointestina l Appointment [facility] hemorrhag e, unspecified Hospital gastrointestinal [facility] [place] [phone] Social History Tobacco Use Types Packs/Day Years [...] Negra Collins MD [facility] DR GASTROENTEROLOGY DEPT [place], [place] [address] (Wo rk) 09/05/2022 Appointment Cardiology Trinity Reid MD [facility] CARDIOLOGY [place], [place] [address] (Wo rk) 09/05/2022 Office Visit Cardiology Trinity Reid MD [facility] CARDIOLOGY [place], [place] [address] (Wo rk) documented as of this encounter Procedures Procedure Name Priority Date/Time Associated Diagnosis Comme [facility] HEMOGRAM Routine 07/20/2019 8:18 Gastrointestinal Results [...] Time Signature WBC 6.0 4.0 - 9.5 [facility] x10(3)/[facility] LABORATORY RBC 4.50 (L) 4.58 [facility] 5.54 [facility] x10(6)/[facility] LABORATORY Hemoglobin 14.8 13.7 - [facility] 16.5 gm/dL [facility] LABORATORY Hematocrit 43.9 40.5 - [facility] 48.5 % [facility] LABORATORY MCV 97.6 (H) 82.9 - [facility] 93.1 [facility] LABORATORY MCH 32.9 (H) 27.5 - [facility] 32.1 pg [facility] LABORATORY MCHC 33.7 32.0 - [facility] 35.7 gm/dL [facility] LABORATORY Platelets 164 145 - 357 [facility] x10(3)/[facility] LABORATORY RDWSD 49.3 (H) 36.0 - [facility] 45.0 [facility] LABORATORY RDWCV 13.6 11.4 - [facility] 13.8 % [facility] LABORATORY MPV 10.0 7.6 - 12.9 [facility] LABORATORY nRBC % Auto 0.0 % [facility] LABORATORY nRBC Abs Auto 0.000 0.000 - [facility] 0.000 [facility] x10(3)/[facility] LABORATORY Specimen Anatomical Collection Method Collection Time Receive d Time (Source) Location / / Volume Laterality Blood specimen 07/20/2019 8:18 AM 019 8:21 (specimen) EDT AM EDT Resulting Agency Comment Spec In Lab Bobby Marshall MD HEMATOLOGY ORDERABLES Performing Organization Address City/State/[place] [address] Prothrombin Time (07/20/2019 8:18 AM EDT) P athologist Signature PT 11.3 9.4 - 12.5 [facility] LABORATORY INR 1.0 [facility] LABORATORY Comment: An [...] Organization Address City/State/[place] [address] documented in this encounter Visit Diagnoses Diagnosis Gastrointestinal hemorrhage, unspecified gastrointestinal hemorrhage type documented in this encounter Care Teams Front Desk Administrator Relationship Specialty Start Date End Date Bobby Das MD PCP - General 10/02/[address] [place] [address] [place], [place] [phone] documented as of this encounter
--- OUTSIDE RECORDS SUMMARY | 2022-07-08 09:51 | XMS_ITS | Encounter Summary ---
:1940 Author Organization [facility] [place] [address] Care Team Providers Name Role Phone Bobby Das MD Primary Care Provider Encounter Details Date Type Department Care Team Description 07/26/2015 External Results Medical Records Provider, Scanning [facility] [place] [address] Social History Tobacco Use Types Packs/Day Years Used Date Current Some Day Smoker 1 50 Smokeless Tobacco: Never Used Sex Assigned at Date Recorded Not on file documented as of this encounter Plan of Treatment Upcoming Encounters Date Type Specialty Care Team Description 08/08/2022 Office Visit Gastroenterology Negra Collins MD [facility] GASTROENTEROLOGY DEPT [place], [place] [address] (Wo rk) 09/05/2022 Appointment Cardiology Trinity Reid MD [facility] CARDIOLOGY [place], [place] [address] (Wo rk) 09/05/2022 Office Visit Cardiology Trinity Reid MD [facility] CARDIOLOGY [place], [place] [address] (Wo rk) documented as of [...] filedocumented in this encounter Care Teams Thread Dresser Relationship Specialty Start Date End Date Bobby Das MD PCP - General 10/02/[address] [place] [address] [place] [phone] documented as of this encounter
--- OUTSIDE RECORDS SUMMARY | 2022-07-08 09:51 | XMS_ITS | Encounter Summary ---
:1940 Author Organization [facility] [place] [address] Care Team Providers Name Role Phone Bobby Das MD Primary Care Provider Encounter Details Date Type Department Care Team Description 12/13/2016 Telephone Pain Management [place] [address] Social History Tobacco Use Types Packs/Day [...] Negra Collins MD [facility] DR GASTROENTEROLOGY DEPT [place], [place] [address] (Wo rk) 09/05/2022 Appointment Cardiology Trinity Reid MD [facility] CARDIOLOGY [place], [place] [address] (Wo rk) 09/05/2022 Office Visit Cardiology Trinity Reid MD [facility] CARDIOLOGY [place], [place] [address] (Wo rk) documented as of this encounter Visit Diagnoses Not on filedocumented in this encounter Care Teams Pit Hoist Operator Relationship Specialty Start Date End Date Bobby Das MD PCP - General 10/02/[address] [place] [address] [place] [phone] documented as of this encounter
--- OUTSIDE RECORDS SUMMARY | 2022-07-08 09:51 | XMS_ITS | Encounter Summary ---
:1940 Author Organization [facility] [place] [address] Care Team Providers Name Role Phone Bobby Das MD Primary Care Provider Encounter Details Date Type Department Care Team Description 09/06/2020 Ancillary Procedure Radiology at [facility] Amy Grimaldo [address] [place] [address] [address] [phone] NEUROSURGERY-N [place], [place] [address] Social History Tobacco Use Types [...] Visit Gastroenterology Negra Collins MD [facility] GASTROENTEROLOGY DEPT [place], [place] [address] (Wo rk) 09/05/2022 Appointment Cardiology Trinity Reid MD [facility] CARDIOLOGY [place], [place] [address] (Wo rk) 09/05/2022 Office Visit Cardiology Trinity Reid MD [facility] CARDIOLOGY [place], [place] [address] (Wo rk) documented as of [...] Organization Address City/State/ZIP Code Phon e Number [place], [place] documented in this encounter Visit Diagnoses Not on filedocumented in this encounter Care Teams Glaciologist Relationship Specialty Start Date End Date Bobby Das MD PCP - General 10/02/[address] [place] [address] [place] [phone] documented as of this encounter
--- OUTSIDE RECORDS SUMMARY | 2022-07-08 09:51 | XMS_ITS | Encounter Summary ---
:1940 Author Organization [facility] [place] [address] Care Team Providers Name Role Phone Bobby Das MD Primary Care Provider Encounter Details Date Type Department Care Team Description 08/06/2020 Ancillary Procedure Radiology at [facility] Amy Grimaldo [address] [place] [address] 10 L[address] JAY [phone] NEUROSURGERY-N [place], [place] [address] Social History Tobacco Use Types [...] 08/08/2022 Office Visit Gastroenterology Negra Collins MD [facility] GASTROENTEROLOGY DEPT [place], [place] [address] (Wo rk) 09/05/2022 Appointment Cardiology Trinity Reid MD [facility] CARDIOLOGY [place], [place] [address] (Wo rk) 09/05/2022 Office Visit Cardiology Trinity Reid MD [facility] CARDIOLOGY [place], [place] [address] (Wo rk) documented as of [...] Organization Address City/State/ZIP Code Phon e Number [place], [place] documented in this encounter Visit Diagnoses Not on filedocumented in this encounter Care Teams Boxing Inspector Relationship Specialty Start Date End Date Bobby Das MD PCP - General 10/02/[address] [place] [address] [place] [phone] documented as of this encounter
--- OUTSIDE RECORDS SUMMARY | 2022-07-08 09:51 | XMS_ITS | Encounter Summary ---
:1940 Author Organization [facility] [place] [address] Care Team Providers Name Role Phone Bobby Das MD Primary Care Provider Encounter Details Date Type Department Care Team Description 08/28/2020 Ancillary Procedure Radiology at [facility] Amy Grimaldo [address] [place] [address] 10 LITT[address] JAY [phone] NEUROSURGERY-N [place], [place] [address] Social History Tobacco Use Types [...] 08/08/2022 Office Visit Gastroenterology Negra Collins MD [facility] GASTROENTEROLOGY DEPT [place], [place] [address] (Wo rk) 09/05/2022 Appointment Cardiology Trinity Reid MD [facility] CARDIOLOGY [place], [place] [address] (Wo rk) 09/05/2022 Office Visit Cardiology Trinity Reid MD [facility] CARDIOLOGY [place], [place] [address] (Wo rk) documented as of [...] Organization Address City/State/ZIP Code Phon e Number [place], [place] documented in this encounter Visit Diagnoses Not on filedocumented in this encounter Care Teams Sludge Filtration Operator Relationship Specialty Start Date End Date Bobby Das MD PCP - General 10/02/[address] [place] [address] [place] [phone] documented as of this encounter
--- OUTSIDE RECORDS SUMMARY | 2022-07-08 09:51 | XMS_ITS | Encounter Summary ---
:1940 [place] [address] Care Team Providers Name Role Phone Bobby Das MD Primary Care Provider Reason for Visit Reason Comments Wound Check Encounter Details Date Type Department Care Team Description 10/25/2015 Clinical Support Dermatology at Christine Gonzalez MD Follow up [facility] [address] [facility] [place] [address] [place] [address] [phone] (Wo rk) Social History Tobacco Use Types Packs/Day Years Used Date Current Some Day Smoker 1 50 Smokeless Tobacco: Never Used Sex Assigned at Date Recorded Not on file documented as of this encounter Progress Notes Leo Solo MD - 10/25/2015 1:01 PM EST CC: Wound check HPI: Patient is a 75 y.o. male with history of basal cell carcinoma, right jain, s/p Mohs, repaired by transposition flap on who presents for wound check. Denies complications. States when he blinks he can feel the scar tissue. ROS: Otherwise well. No other skin complaints. Exam: General: No acute distress Skin: Limited examination of right jain shows a well-healed flap with hypertrophy at the edge. Assessment and Plan 1. Basal cell carcinoma, right jain, s/p Mohs, repaired by transposition flap Kenalog [...] [facility] DR GASTROENTEROLOGY DEPT [place], [place] [address] (Wo rk) 09/05/2022 Appointment Cardiology Trinity Reid MD [facility] CARDIOLOGY [place], [place] [address] (Wo rk) 09/05/2022 Office Visit Cardiology Trinity Reid MD [facility] CARDIOLOGY [place], [place] [address] (Wo rk) documented as of this encounter Visit Diagnoses Diagnosis Follow up documented in this encounter Care Teams Senior Storage Administrator Relationship Specialty Start Date End Date Bobby Das MD PCP - General 10/02/[address] [place] [address] [place] [phone] documented as of this encounter
--- OUTSIDE RECORDS SUMMARY | 2022-07-08 09:51 | XMS_ITS | Encounter Summary ---
:1940 Author Organization [facility] [address] Care Team Providers Name Role Phone Bobby Das MD Primary Care Provider Encounter Details Date Type Department Care Team Description 08/06/2020 Ancillary Procedure Radiology at [facility] Amy Grimaldo [address] [place] [address] 10 LITT[address] JAY [phone] NEUROSURGERY-N [place], [place] [address] Social History Tobacco Use Types [...] 08/08/2022 Office Visit Gastroenterology Negra Collins MD [facility] GASTROENTEROLOGY DEPT [place], [place] [address] (Wo rk) 09/05/2022 Appointment Cardiology Trinity Reid MD [facility] CARDIOLOGY [place], [place] [address] (Wo rk) 09/05/2022 Office Visit Cardiology Trinity Reid MD [facility] CARDIOLOGY [place], [place] [address] (Wo rk) documented as of [...] Organization Address City/State/ZIP Code Phon e Number [place], [place] documented in this encounter Visit Diagnoses Not on filedocumented in this encounter Care Teams Wharf Builder Relationship Specialty Start Date End Date Bobby Das MD PCP - General 10/02/[address] [place] [address] [place] [phone] documented as of this encounter
--- OUTSIDE RECORDS SUMMARY | 2022-07-08 09:51 | XMS_ITS | Encounter Summary ---
:1940 Author Organization [facility] [place] [address] Care Team Providers Name Role Phone Bobby Das MD Primary Care Provider Reason for Visit Reason Comments Basal Cell Carcinoma Encounter Details Date Type Department Care Team Description 08/24/2015 Procedure visit Dermatology at [facility] Leo Solo BCC (basal cell Road MD Delores carcinoma of skin) [address] [facility] [address] [facility] [phone] [address] [address] Social History Tobacco Use Types Packs/Day Years [...] when the wound is well cared for. [place] drainage or slight yellow film on your [...] the hospital number and ask for the Housekeeper Cleaning Cooking employee communications specialist. Wound Care for Sutured Wounds You should [...] the hospital number and ask for the Housekeeper Cleaning Cooking employee communications specialist. documented in this encounter Progress Notes Leo Solo MD - 08/24/2015 3:25 PM EDT Operative Report Patient name: Koko Zamora : 1940 Date: 08/24/2015 Staff Surgeon: Leo Solo MD, PhD Mint Machine Operator I: Cassy Jacobson, Yolanda Verdin, Etta Burciaga, Gloria Culver MD Desktop Operator: Kourtney Cabrera Pre-operative diagnosis: Basal cell carcinoma Post-operative diagnosis: Basal cell carcinoma Location: Right lutheran Procedure: Mohs micrographic surgery Indication for Mohs micrographic surgery: Critical anatomic location Stages: 2 Final defect size: 3.6 x 2.0 cm Stage I The nature and purpose of the procedure, associated risks, possible consequences and complications,and alternative forms of treatment were explained in detail. Informed consent and permission to takephotographs were obtained. The site was confirmed with the patient/authorized customer loyalty representative/referring physician and a pre-operative time-out was [...] 08/24/2015 Staff Surgeon: Leo Solo MD, PhD Mint Machine Operator I: Yolanda Rivera, Estefania Welch Clinical Diagnosis: 3.6 x 2.0 cm surgical defect secondary to Mohs microscopically controlled excision of basal cell carcinoma Location: Right lutheran Procedure: Transposition flap repair Due to the [...] MD [facility] GASTROENTEROLOGY DEPT [place], [place] [address] ([facility]) 09/05/2022 Appointment Cardiology Trinity Reid MD [facility] CARDIOLOGY [place], [place] [address] ([facility]) 09/05/2022 Office Visit Cardiology Trinity Reid MD [facility] CARDIOLOGY [place], [place] [address] ([facility]) documented as of this encounter Visit Diagnoses Diagnosis BCC (basal cell carcinoma of skin) Basal cell carcinoma of skin, site unspe cified documented in this encounter Care Teams Shellfish Harvester Relationship Specialty Start Date End Date Bobby Das MD PCP - General 10/02/[address] [place] [address] [place] [phone] documented as of this encounter
--- OUTSIDE RECORDS SUMMARY | 2022-07-08 09:51 | XMS_ITS | Encounter Summary ---
:1940 Author Organization [facility] [place] [address] Care Team Providers Name Role Phone Bobby Das MD Primary Care Provider Reason for Referral Diagnostic Test (Routine) - Closed Specialty Diagnoses / Procedures Referred By Contact Refer red To Contact Radiology Diagnoses 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, sequela Closed compression fracture of L1 lumbar vertebra with delayed healing, subsequent encounter Malignant neoplasm of prostate Zbigniew Thompson PA [facility] Interventionl Rad Procedures IR Vertebroplasty Lumbar Multiple Levels IR Vertebral Augmentation Lumbar Single Level [facility] [place] [address] [place] [address] Fax: Referral ID Status Reason Start Date Expiration Date Visits V isits Requested Authorized [id number] Closed Specialty 07/13/2019 07/12/2020 1 1 Service Requested iagnostic Test (Routine) - Closed Specialty Diagnoses / Procedures Referred By Contact Refer red To Contact Radiology Diagnoses Closed compression fracture of L1 lumbar vertebra with delayed healing, subsequent encounter Malignant neoplasm of prostate Zbigniew Thompson PA [facility] Interventionl Rad Procedures [place] [address] [place] [address] Fax: Referral ID Status Reason Start Date Expiration Date Visits V isits Requested Authorized [id number] Closed Specialty 07/13/2019 07/12/2020 1 1 Service Requested Reason for Visit Diagnostic Test (Routine) - Closed Specialty Diagnoses / Procedures Referred By Contact Refer red To Contact Radiology Diagnoses 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, sequela Closed compression fracture of L1 lumbar vertebra with delayed healing, subsequent encounter Malignant neoplasm of prostate Zbigniew Thompson, PA [facility] Interventionl Rad Procedures IR Vertebroplasty Lumbar Multiple Levels IR Vertebral Augmentation Lumbar Single Level [facility] [place] [facility] [place] [address] [place] [address] Fax: Referral ID Status Reason Start Date Expiration Date Visits V isits Requested Authorized [id number] Closed Specialty 07/13/2019 07/12/2020 1 1 Service Requested Encounter Details Date Type Department Care Team Description 07/20/2019 Hospital Encounter Radiology at [facility] Elmer Loya, Closed compression fracture of L1 lumbar vertebra with delayed healing, subsequent encounter; [facility] Malignant neoplasm of prostate; Drive [facility] Age-related osteoporosis wit h current pathological fracture of vertebra, sequela [place], [place] CENTER [address] [facility] [phone] [place] [address] Social History Tobacco Use Types Packs/Day Years [...] Martínez RN - 07/20/2019 10:06 AM EDT [facility] Discharge Instructions for Vertebroplasty Your vertebroplasty [...] is during regular office hours, please call [phone]. If it is after regular office hours, oron weekends or holidays, please call [phone] and ask to speak to the President Sales And Marketing on callfor Interventional Radiology. XXX You have [...] of : 1940 AGE: 78 y.o. Address: [address] [place] [address] [place] [phone] (home) Mobile: No relevant phone numbers on file. Referring Provider: Zbigniew Thompson REASON FOR VISIT: Order Questions Answers Where will study be performed? [facility] Radiology [120] Specify location Lumbar Reason [...] MD [facility] GASTROENTEROLOGY DEPT [place], [place] [address] (Wo rk) 09/05/2022 Appointment Cardiology Trinity Reid MD [facility] CARDIOLOGY [place], [place] [address] (Wo rk) 09/05/2022 Office Visit Cardiology Trinity Reid MD [facility] CARDIOLOGY [place], [place] [address] (Wo rk) documented as of [...] made and a 13g a introducer needle ([place]) was advanced through the right pedicle and [...] made an d a 13ga introducer needle ([place]) was advanced through the left pedicle and [...] signed by: Bobby Sullivan MD, [facility] ([phone]), at 07/20/2019 1:20 PM Procedure Note Bobby [...] made and a 13g a introducer needle ([place]) was advanced through the right pedicle and [...] made an d a 13ga introducer needle ([place]) was advanced through the left pedicle and [...] For questions regarding this report, please contact [facility] number below. Elmer Loya MD IMG IR [...] made and a 13g a introducer needle ([place]) was advanced through the right pedicle and [...] made an d a 13ga introducer needle ([place]) was advanced through the left pedicle and [...] signed by: Bobby Sullivan MD, [facility] ([phone]), at 07/20/2019 1:20 PM Procedure Note Bobby [...] made and a 13g a introducer needle ([place]) was advanced through the right pedicle and [...] made an d a 13ga introducer needle ([place]) was advanced through the left pedicle and [...] signed by: Bobby Sullivan MD, [facility] ([phone]), at 07/20/2019 1:20 PM Elmer Loya MD IMG IR ORDERABLES Surgical Pathology Report (07/20/2019 10:45 AM EDT) Component Value Ref Test Analysis Performed At [facility] Method Time Signature Surgical [id number] ? [facility] The signing pathologist has (i) examined the relevant preparation(s) for the [facility] specimen(s) and (ii) rendered or confirmed the diagnosis(es) . HOSPITAL LABORATORY . ?Surgic al Pathology DIAGNOSIS A - Bone, L1; biopsy at vertebroplasty: ?Viable lamellar cancellous bone with scattered i ntertrabecular chronic ?inflammatory cells, and no evidence of metastatic pros mi cancer or ?other neoplasia (see Discussion). Electronically signed by: ??Jl Spence MD Verified: ??07/22/2019 ?Pathologist Performed at: ??-[facility] Dept. of Pathology, [place], [place] DISCUSSION Deeper levels into the biopsy [...] Organization Address City/State/[place] [address] Specimen to Pathology (07/20/2019 8:41 AM EDT) Specimen Anatomical Collection Method Collection Time Receive d Time (Source) Location / / Volume Laterality AP Specimen 07/20/2019 8:41 AM 9 8:41 EDT AM EDT Narrative [facility] - 07/20/2019 8:41 AM EDT Specimen requisition ordered. ??Separate Pathology report to follow Elmer Loya MD PATHOLOGY/CYTOLOGY ORDERABLE S Performing Organization Address City/State/[place] [address] documented in this encounter [...] mg documented in this encounter Care Teams Radiology Asst Relationship Specialty Start Date End Date Bobby Das MD PCP - General 10/02/[address] [place] [address] [place] [phone] documented as of this encounter
--- OUTSIDE RECORDS SUMMARY | 2022-07-08 09:51 | XMS_ITS | Encounter Summary ---
:1940 Author Organization [facility] [place] [address] Care Team Providers Name Role Phone Bobby Das MD Primary Care Provider Reason for Referral Diagnostic Test (Routine) - Specialty Diagnoses / Procedures Referred By Contact Refer ramila To Contact Radiology Diagnoses Chest pain, unspecified type Chronic abdominal pain Chano Rebolledo MD [facility] Rad Ct Scan Procedures CT Chest w Contrast CT Chest wo Contrast (Generic) [facility] [place] [address] [place] [address] Referral ID Status Reason Start Date Expiration Visits Visits Date Requested Authorized [id number] Specialty 12/13/2016 12/13/2017 1 1 Service Requested Consultation (Routine) - Closed Specialty Diagnoses / Procedures Referred By Contact Refer ramila To Contact Neurology Diagnoses Radiculopathy of cervical region Chano Rebolledo MD [facility] Neurology 3c [facility] [place] [address] [place] [address] Referral ID Status Reason Start Date Expiration Date Visits V isits Requested Authorized [id number] Closed Test Only 12/13/2016 12/13/2017 1 1 Diagnostic Test (Routine) - Closed Specialty Diagnoses / Procedures Referred By Contact Refer red To Contact Radiology Diagnoses Chest pain, unspecified type Chronic abdominal pain Chano Rebolledo MD [facility] Rad Ct Scan Procedures CT Abdomen & Pelvis w Contrast [facility] [place] [address] [place] [address] Referral ID Status Reason Start Date Expiration Date Visits V isits Requested Authorized [id number] Closed Specialty 12/13/2016 12/13/2017 1 1 Service Requested Reason for Visit Reason Comments Pain Management Neck Pain Bilateral Arm Pain burning across sternum and r ibs, both sides Consultation (Routine) - Closed Specialty Diagnoses / Procedures Referred By Contact Refer red To Contact Pain Management Diagnoses cervical radiculopathy Bobby Das MD [facility] [address] [place] [address] [address] [place], [place] Drive [address] [place] [address] Fax: Referral ID Status Reason Start Date Expiration Date Visits V isits Requested Authorized [id number] Closed Consult, 11/22/2016 11/22/2017 1 1 Test & Treat Encounter Details Date Type Department Care Team Description 12/13/2016 Office Visit Pain Management at [facility], Chest adrianna n, unspecified type; Jose Sullivna MD Chronic abdominal pain; [facility] Radiculop athy of cervical region [facility] [address] [place], [place] PAIN CLINIC [address] [place] [address] Social History Tobacco Use Types [...] Rebolledo MD - 12/13/2016 1:00 PM EST [facility] [place] [address] Phone: PAIN MANAGEMENT NEW PATIENT / CONSULTATION NOTE DATE OF VISIT 12/13/2016 Patient Koko Zamora 1940 REFERRING PROVIDER Bobby Das MD [address] [place] [address] [place] [address] PRIMARY CARE PROVIDER Bobby Das MD CHIEF [...] (See Comments) 06/28/2011 MEDICATIONS The [place] and [place] Prescription Monitoring Program were checked & no [...] restless FUNCTIONAL /SOCIAL Lives with: 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 Follow up: -Patient will be called after results are obtained. Koko J Zamora had the opportunity to ask questions and indicated that all questions were answered to his satisfaction. Thank you for this referral, Bobby Das MD [address] [place] [address]. Chano Rebolledo MD Leonel Orozco MD - [...] MD [facility] DR GASTROENTEROLOGY DEPT [place], [place] [address] (Wo rk) 09/05/2022 Appointment Cardiology Trinity Reid MD [facility] CARDIOLOGY [place], [place] [address] (Wo rk) 09/05/2022 Office Visit Cardiology Trinity Reid MD [facility] CARDIOLOGY [place], [place] [address] (Wo rk) Scheduled Referrals Name [...] site documented in this encounter Care Teams Armature Winder Helper Repair Relationship Specialty Start Date End Date Bobby Das MD PCP - General 10/02/[address] [place] [address] [place] [phone] documented as of this encounter
--- OUTSIDE RECORDS SUMMARY | 2022-07-08 09:51 | XMS_ITS | Encounter Summary ---
:1940 [place] [address] Care Team Providers Name Role Phone Bobby Das MD Primary Care Provider Encounter Details Date Type Department Care Team Description 07/13/2019 Orders Only Radiology Alan Brink Gastrointestinal [facility] MD Rosa hemorrhage, unspecified [facility] DR hemorrhage type (Primary [phone] RADIOLOGY DEPT Dx) [phone] [place], [place] [address] Social History Tobacco Use Types [...] file Gets together: Not on file Attends rastafari service: Not on file Active member of [...] Gastroenterology Negra Collins MD [facility] GASTROENTEROLOGY DEPT [place], [place] [address] (Wo rk) 09/05/2022 Appointment Cardiology Trinity Reid MD [facility] CARDIOLOGY [place], [place] [address] (Wo rk) 09/05/2022 Office Visit Cardiology Trinity Reid MD [facility] CARDIOLOGY [place], [place] [address] (Wo rk) documented as of this encounter Results Prothrombin Time (07/20/2019 8:18 AM EDT) P athologist Signature PT 11.3 9.4 - 12.5 [facility] 1.0 [facility] LABORATORY Comment: An INR [...] Organization Address City/State/ZIP [place] [address] (ABNORMAL) Hemogram (07/20/2019 8:18 AM EDT) Analysis Performed At Patho logist Time Signature WBC 6.0 4.0 - 9.5 [facility] x10(3)/[facility] LABORATORY RBC 4.50 (L) 4.58 - [facility] 5.54 [facility] x10(6)/[facility] LABORATORY Hemoglobin 14.8 13.7 - [facility] 16.5 gm/dL [facility] LABORATORY Hematocrit 43.9 40.5 - [facility] 48.5 % [facility] MCV 97.6 (H) 82.9 - [facility] 93.1 fL [facility] MCH 32.9 (H) 27.5 - [facility] 32.1 pg [facility] MCHC 33.7 32.0 - [facility] 35.7 gm/dL [facility] Platelets 164 145 - 357 [facility] X[facility] x10(3)/[facility] LABORATORY RDWSD 49.3 (H) 36.0 - [facility] 45.0 [facility] LABORATORY RDWCV 13.6 11.4 - [facility] 13.8 % [facility] LABORAT[facility] MPV 10.0 7.6 - 12.9 [facility] LABORATORY nRBC % Auto 0.0 % [facility] LABORATORY nRBC Abs Auto 0.000 0.000 - [facility] 0.000 [facility] x10(3)/[facility] LABORATORY Specimen Anatomical Collection Method Collection Time Receive d Time (Source) Location / / Volume Laterality Blood specimen 07/20/2019 8:18 AM 019 8:21 (specimen) EDT AM EDT Resulting Agency Comment Spec In Lab Bobby Marshall MD HEMATOLOGY ORDERABLES Performing Organization Address City/State/ZIP [place] [address] documented in this encounter Visit Diagnoses Diagnosis Gastrointestinal hemorrhage, unspecified gastrointestinal hemorrhage type - Primary documented in this encounter Care Teams Poising Inspector Relationship Specialty Start Date End Date Bobby Das MD PCP - General 10/02/[address] [place] [address] [place] [phone] documented as of this encounter
--- OUTSIDE RECORDS SUMMARY | 2022-07-08 09:51 | XMS_ITS | Encounter Summary ---
:1940 Author Organization [facility] [place] [address] Care Team Providers Name Role Phone Bobby Das MD Primary Care Provider Reason for Visit Reason Comments Shortness of Breath Encounter Details Date Type Department Care Team Description 09/17/[address] [facility] Hosp Torrey Giang SOB (shortness of [address] Mendoza MD breath) (Primary Dx) [facility] [phone] CARDIOLOGY DEPT. [place] [id number] Social History Tobacco Use Types Packs/Day Years [...] Visit Gastroenterology Negra Collins MD [facility] GASTROENTEROLOGY DEPT [place], [place] [address] (Wo rk) 09/05/2022 Appointment Cardiology Trinity Reid MD [facility] CARDIOLOGY [place], [place] [address] (Wo rk) 09/05/2022 Office Visit Cardiology Trinity Reid MD [facility] CARDIOLOGY [place], [place] [address] (Wo rk) documented as of [...] breath documented in this encounter Care Teams Supervisor Prepress Relationship Specialty Start Date End Date Bobby Das MD PCP - General 10/02/[address] [place] [address] [place] [address] documented as of this encounter
--- OUTSIDE RECORDS SUMMARY | 2022-07-08 09:51 | XMS_ITS | Encounter Summary ---
:1940 Author Organization 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 Chano Rebolledo MD [facility] [address] [place] [address] [place] [address] [place] [address] Phone: Fax: Referral ID Status Reason Start Date Expiration Date Visits V isits Requested Authorized [id number] Denied Consult, 12/18/2016 12/18/2017 1 0 Test & Treat Encounter Details Date Type Department Care Team Description 12/18/2016 Telephone Pain Management at Chano Freitas MD [place] [address] PAIN CLINIC [phone] [place], [place] [address] (Wo rk) Social History Tobacco [...] I will make a heme/oncology consultation with [facility] for the patient in the meantime. documented in this encounter Plan of Treatment Upcoming Encounters Date Type Specialty Care Team Description 08/08/2022 Office Visit Gastroenterology Negra Collins MD [facility] GASTROENTEROLOGY DEPT [place], [place] [address] (Wo rk) 09/05/2022 Appointment Cardiology Trinity Reid MD [facility] CARDIOLOGY [place], [place] [address] (Wo rk) 09/05/2022 Office Visit Cardiology Trinity Reid MD [facility] CARDIOLOGY [place], [place] [address] (Wo rk) Scheduled Referrals Name Type Priority Associated Diagnoses Order S chedule Referral to Outpatient Referral Routine Neoplasm of Ordered: Hematology and uncertain behavior 017 Oncology of respiratory organ documented as of this encounter Visit Diagnoses Diagnosis 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
--- OUTSIDE RECORDS SUMMARY | 2022-07-08 09:51 | XMS_ITS | Encounter Summary ---
:1940 Author Organization [facility] [place] [address] Care Team Providers Name Role Phone Bobby Das MD Primary Care Provider Reason for Visit Reason Comments Suture / Staple Removal Encounter Details Date Type Department Care Team Description 08/31/2015 Clinical Support Dermatology at [place] Visit for suture Heat Nicol Estrella MD removal [address] [place] [facility] [address] [facility] [phone] RD-DERMATOLOGY [place] [phone] Social History Tobacco Use Types Packs/Day Years Used Date Current Some Day Smoker 1 50 Smokeless Tobacco: Never Used Sex Assigned at Date Recorded Not on file documented as of this encounter Progress Notes Jeni Franco LPN - 08/31/2015 2:47 PM EDT HPI: Patient is a 74 y.o. male with history of basal cell carcinoma, right quaker, s/p Mohs repairedby transposition flap repair who is presenting for suture removal. Denies complications. Exam: General: No acute distress Skin: Limited examination of right quaker shows a well-healed flap. There is no erythema, dehiscence, ecchymosis, or drainage. Assessment and Plan 1. Basal cell carcinoma, right quaker, s/p Mohs repaired by transposition flap repair [...] 08/08/2022 Office Visit Gastroenterology Negra Collins MD [facility] GASTROENTEROLOGY DEPT [place], [place] [address] (Wo rk) 09/05/2022 Appointment Cardiology Trinity Reid MD [facility] CARDIOLOGY [place], [place] [address] (Wo rk) 09/05/2022 Office Visit Cardiology Trinity Reid MD [facility] CARDIOLOGY [place], [place] [address] (Wo rk) documented as of this encounter Visit Diagnoses Diagnosis Visit for suture removal Encounter for removal of sutures documented in this encounter Care Teams Cork Painter And Grader Relationship Specialty Start Date End Date Bobby Das MD PCP - General 10/02/[address] [place] [address] [place] [phone] documented as of this encounter
--- OUTSIDE RECORDS SUMMARY | 2022-07-08 09:51 | XMS_ITS | Encounter Summary ---
:1940 Author Organization [facility] [place] [address] Care Team Providers Name Role Phone Bobby Das MD Primary Care Provider Encounter Details Date Type Department Care Team Description 07/25/2015 Hospital Encounter Laboratory Leo Solo, [facility] [place] [address]-DERMATOLOGY [place], [place] [address] (Wo rk) Social History Tobacco [...] Visit Gastroenterology Negra Collins MD [facility] GASTROENTEROLOGY DEPT [place], [place] [address] (Wo rk) 09/05/2022 Appointment Cardiology Trinity Reid MD [facility] CARDIOLOGY [place], [place] [address]375 (Wo rk) 09/05/2022 Office Visit Cardiology Trinity Reid MD [facility] CARDIOLOGY [place] [address] (Wo rk) documented as of this encounter Procedures Procedure Name Priority Date/Time Associated Diagnosis Comme nts SURGICAL PATHOLOGY Routine 07/25/2015 9:51 AM Res ults for this REPORT EDT procedure are i n the results section. documented in this encounter Results Surgical Pathology Report (07/25/2015 9:51 AM EDT) Component Value Ref Test Analysis Performed At [facility] Method Time Signature Surgical The signing pathologist has (i) examined the relevant preparation(s) for the [facility] Pathology specimen(s) and (ii) rendered or confirmed the diagnosis(e s). [facility] Report Accession Number: [id number] . ?Surgic al Pathology DIAGNOSIS CONSULTATION CASE Outside slides labeled [id number], collection date 07/03/2015 . Skin, right protestant, excision: ?- ??BASAL CELL CARCINOMA, INFILTRATIVE TYPE [...] CONSULTATION CASE A - 3 slides labeled [id number], collection date 07/03/2015. [id number] Report to: [facility] Surgical Pathology Department [facility] [address], [address]nd Floor [address] [place], [place] ??[address] SPECIMEN PROCESSING [facility] ([facility]) pathology slide(s) are reviewed. ??Refer to Diagnosis and Specimen Submitted for specific case infor arpan. For the full text of the [facility] ([facility]) report(s) please refer to Non-DH Documentati on Pathology in the electronic health record (eDH). Specimen (Source) Anatomical Collection Method Collection Time Re ceived Time Location / / Volume Laterality 07/25/2015 9:51 AM EDT Leo Solo MD PATHOLOGY/CYTOLOGY ORDERABLE S Performing Organization Address City/State/[place] [address] [facility] documented in this encounter Visit Diagnoses Not on filedocumented in this encounter Care Teams Repairer Shoe Sticks Relationship Specialty Start Date End Date Bobby Das MD PCP - General 10/02/[address] [place] [address] [place] [phone] documented as of this encounter
--- OUTSIDE RECORDS SUMMARY | 2022-07-08 09:51 | XMS_ITS | Encounter Summary ---
:1940 Author Organization [facility] Address [address] [place] [address] Care Team Providers Name Role Phone Bobby Das MD Primary Care Provider Reason for Visit Reason Comments Shortness of Breath Encounter Details Date Type Department Care Team Description 06/28/2011 [place] [facility] [place]t Nicole SOB (shortness of breath) (P rimary Dx); [facility] GIB (gastrointestinal bleeding); Drive [facility] MVP (mitral valve prolapse) [place] [address] CARDIOLOGY DEPT. [phone] [place], [place] [address] Social History Tobacco Use Types [...] Giordano MD - 06/28/2011 4:15 PM EDT [facility] Cholesterol and Triglycerides Tests: About These Tests [...] 60 mg/dl is considered ideal. ?? Total ojwciyqrckm-ns-XKP ratio: A ratio of 5:1 or lower is recommended. ?? LDL cholesterol: Between 100-129 mg/dL is recommended. Lower than 100 mg/dL is considered ideal. ?? VLDL cholesterol: 30 mg/dL or less is recommended. ?? Triglycerides: Lower than 150 mg/dL is recommended. Where can you learn more? Visit our health information library at [email or web address]. You can also view health information on [employer], your personal patient account. Log in or sign up today. Enter V788 in the search box to learn more about Cholesterol and Triglycerides Tests: About These Tests. ?? [id number] [employer]. Care instructions adapted under license by [facility]. This care instruction is for use with your licensed healthcare professional. If you have questionsabout a medical condition or this instruction, always ask your healthcare professional. [employer] disclaims any warranty or liability for your [...] valve prolapse) s/p repair Surgery done at [facility] in 2000 ??? Hypertriglyceridemia ??? Adhesive capsulitis of L shoulder ??? Alcohol use Medications: [place]-3 Fatty Acids-Vitamin E (FISH OIL) 1,000 mg [...] Collins MD [facility] GASTROENTEROLOGY DEPT [place], [place] [address] (Wo rk) 09/05/2022 Appointment Cardiology Trinity Reid MD [facility] CARDIOLOGY [place], [place] [address] (Wo rk) 09/05/2022 Office Visit Cardiology Trinity Reid MD [facility] CARDIOLOGY [place], [place] [address] (Wo rk) documented as of this encounter Procedures Procedure Name Priority Date/Time Associated Diagnosis Comme nts EKG 12-LEAD Routine 06/28/2011 2:59 PM SOB (shortness of Resu lts for this EDT breath) procedure are i n the results section . documented in this encounter Results EKG 12 Lead (06/28/2011 2:59 PM EDT) [facility] gist Method Time Signature Ventricular rate 70 BPM MUSE SYSTEM Atrial Rate 70 BPM MUSE SYSTEM P-R Interval 182 ms MUSE SYSTEM QRS Duration 106 ms MUSE SYSTEM Q-T Interval 406 ms MUSE SYSTEM QTC Calculated 438 ms MUSE SYSTEM (Bezet) Calculated P [place] 60 degrees MUSE SYSTEM Calculated R [place] -51 degrees MUSE SYSTEM Calculated T [place] 32 degrees MUSE SYSTEM INTERPRETATION Normal sinus [...] disorders documented in this encounter Care Teams Dog Beautician Relationship Specialty Start Date End Date Bobby Das MD PCP - General 10/02/[address] [place] [address] [place] [address] documented as of this encounter
--- OUTSIDE RECORDS SUMMARY | 2022-07-08 09:51 | XMS_ITS | Encounter Summary ---
:1940 Author Organization [facility] [place] [address] Care Team Providers Name Role Phone Bobby Das MD Primary Care Provider Reason for Referral Diagnostic Test (Routine) - Specialty Diagnoses / Procedures Referred By Contact Refer red To Contact Radiology Diagnoses Chest pain, unspecified type Chronic abdominal pain Chano Rebolledo MD [facility] Rad Ct Scan Procedures CT Chest w Contrast CT Chest wo Contrast (Generic) [facility] [place] [address] [place] [address] Referral ID Status Reason Start Date Expiration Visits Visits Date Requested Authorized [id number] Specialty 12/13/2016 12/13/2017 1 1 Service Requested Diagnostic Test (Routine) - Closed Specialty Diagnoses / Procedures Referred By Contact Refer red To Contact Radiology Diagnoses Chest pain, unspecified type Chronic abdominal pain Chano Rebolledo MD [facility] Rad Ct Scan Procedures CT Abdomen & Pelvis w Contrast [facility] [place] [address] [place] [address] Referral ID Status Reason Start Date Expiration Date Visits V isits Requested Authorized [id number] Closed Specialty 12/13/2016 12/13/2017 1 1 Service Requested Reason for Visit Diagnostic Test (Routine) - Closed Specialty Diagnoses / Procedures Referred By Contact Refer red To Contact Radiology Diagnoses Chest pain, unspecified type Chronic abdominal pain Chano Rebolledo MD [facility] Rad Ct Scan Procedures CT Abdomen & Pelvis w Contrast [facility] [address] [place] [address] [place] [address] Referral ID Status Reason Start Date Expiration Date Visits V isits Requested Authorized [id number] Closed Specialty 12/13/2016 12/13/2017 1 1 Service Requested Encounter Details Date Type Department Care Team Description 12/17/[address] [place] [facility] [place], Chest pain, unspecified type ; [facility] Leonel Sullivan MD Chronic abdominal pain Drive [facility] [address] PAIN CLINIC [phone] [place] [address] Social History Tobacco Use Types [...] MD [facility] GASTROENTEROLOGY DEPT [place], [place] [address] (Wo rk) 09/05/2022 Appointment Cardiology Trinity Reid MD [facility] DR [address] [place], [place] [address] (Wo rk) 09/05/2022 Office Visit Cardiology Trinity Reid MD [facility] DR [address] [place], [place] [address] (Wo rk) documented as of [...] PM Leonel Orozco MD IMG CT ORDERABLES SCAN DOC: CT SCAN (09/09/2016 [...] dose, Starting on Fri12/17/16 at 1211, Until Tu12/17/16 at 1237, Per Protocol, Warning Vesicant/Irritant Medication , Routine iohexol (OMNIPAQUE) radiology oral prep (50 Given 05/2017 12:37 PM EST 50 mLs mL of oral contrast) 50 mL 50 mL, Oral, ONCE PRN, per protocol, Starting on Fri12/17/16 at 1211, 1 dose, Until Fri12/17/16 at 1237 documented in this encounter Care Teams Scrap Bunch Maker Relationship Specialty Start Date End Date Bobby Das MD PCP - General 10/02/[address] [place] [address] [place] [address] documented as of this encounter
--- OUTSIDE RECORDS SUMMARY | 2022-07-08 09:51 | XMS_ITS | Encounter Summary ---
:1940 Author Organization [facility] [place] [address] Care Team Providers Name Role Phone Bobby Das MD Primary Care Provider Reason for Visit Reason Comments Basal Cell Carcinoma Encounter Details Date Type Department Care Team Description 08/08/2015 [facility] BCC (basal cell Road MD carcinoma of skin) [address] [place] [address] [facility] [place] [place] [address] Social History Tobacco Use Types [...] Our facility does not offer a guest [employer] network at this time. We also recommend [...] specified we require that you have a local company flatbed truck driver, as surgery can be stressful and tiring. If you are being transported from a longterm or other similar facility, we request that someone stay with you during this appointment. We are located in the [facility] at [place], [place]. Please refer to the [facility] website for detailed driving directions ([email or web address]). When you arrive, please park in the upper parking lot. When you enter the building, go to the third floor, the hospital receptionist area is located on the left [...] If this fails, contact our office at [phone] (after 5PM please call [phone] and ask for the Dynamics Ax Consultant stone setter apprentice). Avoid bending over, heavy lifting (no greater [...] are taking. Our office phone number is [phone]. documented in this encounter Progress Notes Leo Solo MD - 08/08/2015 1:50 PM EDT [facility] Chief Complaint: Basal cell carcinoma History of Present Illness: Referring Physician: Dr. Zheng, [facility] (07/03/15) Tumor type: BCC Location of Skin Cancer: Right adventism Duration of Presence: 1 year Previous Treatment: [...] acute distress. Skin: Limited examination of right adventism reveals a 5 mm erythematous papule. Assessment and Plan 1. BCC, right adventism Reviewed treament options including wide local excision, [...] [facility] DR GASTROENTEROLOGY DEPT [place], [place] [address] (Wo rk) 09/05/2022 Appointment Cardiology Trinity Reid MD [facility] CARDIOLOGY [place], [place] [address] (Wo rk) 09/05/2022 Office Visit Cardiology Trinity Reid MD [facility] CARDIOLOGY [place], [place] [address] (Wo rk) documented as of this encounter Visit Diagnoses Diagnosis BCC (basal cell carcinoma of skin) Basal cell carcinoma of skin, site unspe cified documented in this encounter Care Teams Head Turbine Operator Relationship Specialty Start Date End Date Bobby Das MD PCP - General 10/02/[address] [place] [address] [place] [phone] documented as of this encounter
--- OUTSIDE RECORDS SUMMARY | 2022-07-08 09:51 | XMS_ITS | Encounter Summary ---
:1940 Author Organization [facility] Address [facility] [place] [address] Care Team Providers Name Role Phone Bboby Das MD Primary Care Provider Reason for Visit Reason Comments Shortness of Breath Encounter Details Date Type Department Care Team Description 12/24/2011 Office Visit [facility] Giang SOB (shortness of [address] Mendoza MD breath) (Primary Dx) [facility] [place] [address] CARDIOLOGY DEPT. [place], [place] [address] Social History Tobacco Use Types Packs/Day Years [...] MD [facility] GASTROENTEROLOGY DEPT [place], [place] [address] (Wo rk) 09/05/2022 Appointment Cardiology Trinity Reid MD [facility] CARDIOLOGY [place], [place] [address] (Wo rk) 09/05/2022 Office Visit Cardiology Trinity Reid MD [facility] CARDIOLOGY [place], [place] [address] (Wo rk) documented as of this encounter Visit Diagnoses Diagnosis SOB (shortness of breath) - Primary Shortness of breath documented in this encounter Care Teams Miner Operator Relationship Specialty Start Date End Date Bobby Das MD PCP - General 10/02/[address] [place] [address] [place] [phone] documented as of this encounter
--- OUTSIDE RECORDS SUMMARY | 2022-07-08 09:51 | XMS_ITS | Encounter Summary ---
:1940 Author Organization [facility] [place] [address] Care Team Providers Name Role Phone Bobby Das MD Primary Care Provider Reason for Visit Reason Comments Follow-up Encounter Details Date Type Department Care Team Description 05/31/2014 [facility] of basal cell Nba CARCAMO carcinoma (Primary [address] Dx) [facility] B DERMATOLOGY [place], [place] [address] [phone] Social History Tobacco Use Types Packs/Day Years Used Date Current Some Day Smoker 1 50 Smokeless Tobacco: Never Used Sex Assigned at Date Recorded Not on file documented as of this encounter Patient Instructions Patient InstructionsSupriya Louis LPN - 05/31/2014 1:34 PM EDT Images from the original note were not included. [facility] Actinic Keratosis: After Your Visit Your [...] more? Visit our health information library at [email or web address] You can also view health information on [employer], your personal patient account. Log in or sign up today. Enter L364 in the search box to learn more about Actinic Keratosis: After Your Visit. ?? [id number] [employer]. Care instructions adapted under license by [facility]. This care instruction is for use with your licensed healthcare professional. If you have questionsabout a medical condition or this instruction, always ask your healthcare professional. [employer] disclaims any warranty or liability for your use of this information. Content Version: 9.9.670607; Last Revised: December 22, 2012 documented in this encounter Progress Notes Hammer, Cy J, MD - 05/31/2014 2:08 PM EDT Problem: Follow up for repeat skin checkup. Shadi follows up after last being seen in March. At that time, I removed using shave C and D a BCCA from the right lateral canthus and a BCCA from the right lateral adventist. I also treated a verruca vulgaris on [...] 08/08/2022 Office Visit Gastroenterology Negra Collins MD [facility] GASTROENTEROLOGY DEPT [place], [place] [address] (Wo rk) 09/05/2022 Appointment Cardiology Trinity Reid MD [facility] [address] [place], [place] [address] (Wo rk) 09/05/2022 Office Visit Cardiology Trinity Reid MD [facility] [address] [place], [place] [address] (Rebekah rojas) documented as of this encounter Visit Diagnoses Diagnosis History of basal cell carcinoma - Primar y Personal history of other malignant neop lasm of skin documented in this encounter Care Teams Theatre Instructor Relationship Specialty Start Date End Date Bobby Das MD PCP - General 10/02/[address] [place] [address] [place] [address] documented as of this encounter
--- OUTSIDE RECORDS SUMMARY | 2022-07-08 09:58 | XMS_ITS | Encounter Summary ---
:1940 Author Organization [facility] Address [address] [place] [address] Care Team Providers Name Role Phone Bobby Das MD Primary Care Provider Encounter Details Date Type Department Care Team Description 10/03/2021 Lab Requisition [facility] Bobby Das Enc ounter for other Pathology & MD general examination Laboratory Medicine [address] [place] [address],[address] [facility] [address] [place] [place] [id number] [place] [phone] Social History Tobacco Use Types Packs/Day Years [...] 15:36 EST) Note to Patient The following [facility] pathology results have CENTER been [...] material is identified. Attestation By the signature [facility] Electronica lly below, the attending CENTER signed by Deejay, physician certifies LABORATORY Lis Platt MD on that they have 1) SERVICES 10/08/2021 at 1640 personally conducted a gross and/or microscopic examination of the described specimen(s), and/or personally interpreted the results of laboratory testing of the described specimen(s), and 2) personally rendered or confirmed the above diagnosis. Microscopic Sections consist of an [facility] Description excision of skin to [...] deeper sections. Clinical History Firm lesion not [facility] healing; foreign body CENTER granuloma LABORATORY SERVICES Gross Description A. [facility] Received in formalin christina d [...] Giordano 10/05/2021 8:15 Performing Lab [facility]OR[facility] SERVICES Scanned Images [facility]OR[facility] SERVICES Specimen Tissue - Skin (tissue) specimen (specime n) Performing Organization Address City/State/ZIP Code Phon e Number [facility] [address] [place] [address] SERVICES documented in this encounter Visit Diagnoses Diagnosis Encounter for other general examination documented in this encounter Care Teams Fur Cleaner Relationship Specialty Start Date End Date Bobby Das MD PCP - General 07/06/[address] [place] [address] ,[address] [place] [address] documented as of this encounter
--- OUTSIDE RECORDS SUMMARY | 2022-07-08 09:59 | XMS_ITS | Encounter Summary ---
:1940 Author Organization [facility] Address [address] [place] [address] Care Team Providers Name Role Phone Bobby Das MD Primary Care Provider Reason for Visit Reason Comments Prostate Cancer Encounter Details Date Type Department Care Team Description 02/23/2018 Radiation Therapy [facility] Aries Gutierrez alignant neoplasm Visit Radiation Oncology Felix EAST MD of formerly [facility] - [address] ([facility]) (Primary [address] [place] [address] Dx) [facility], [address] [place] [address] [address] [place] [address] Social History Tobacco Use Types [...] encounter diagnosis was Malignant neoplasm of prostate ([facility]). Assessment: Assessment Completed By: Felix Gutierrez MD (02/23/18 6981) Radiation Therapy: Cumulative RT Dose 4800 cGy [...] Dr. King Sj Gutierrez MD Radiation Oncology [phone] (office) [phone] (pager) documented in this encounter Plan of Treatment Not on filedocumented as of this encounter Visit Diagnoses Diagnosis Malignant neoplasm of prostate (HCC-CMS) (HCC) - Primary Malignant neoplasm of prostate documented in this encounter Care Teams Industrial Roofer Relationship Specialty Start Date End Date Bobby Das MD PCP - General 07/06/[address] [place] [address] ,[address] [place] [address] documented as of this encounter
--- OUTSIDE RECORDS SUMMARY | 2022-07-08 09:59 | XMS_ITS | Encounter Summary ---
:1940 Author Organization [facility] Address [address] [place] [address] Care Team Providers Name Role Phone Bobby Das MD Primary Care Provider Encounter Details Date Type Department Care Team Description 02/08/2018 Hospital Encounter [facility] Aries Gutierrez Radiation Oncology - III, [facility] [address] [facility] [address] [place] [address] Pavilion, [place] [address] (Wo rk) Social History Tobacco Use Types [...] Departure Means Destination Home or Self Senior Living documented in this encounter Plan of Treatment Not on filedocumented as of this encounter Visit Diagnoses Not on filedocumented in this encounter Care Teams Quality Control Inspector Relationship Specialty Start Date End Date Bobby Das MD PCP - General 07/06/[address] [place] [address],[address] [place] [phone] documented as of this encounter
--- OUTSIDE RECORDS SUMMARY | 2022-07-08 09:59 | XMS_ITS | Encounter Summary ---
:[address] [facility] Address [address] [place] [address] Care Team Providers Name Role Phone Bobby Das MD Primary Care Provider Encounter Details Date Type Department Care Team Description 03/04/2018 Documentation Visit [facility] Aries Gutierrez Radiation Oncology - III, [address] [address] [address], [place] [phone] (Wo rk) Social History Tobacco Use Types Packs/Day Years Used Date Current Every Day Smoker Smokeless Tobacco: Never Used Sex Assigned at Date Recorded Not on file documented as of this encounter Miscellaneous Notes Treatment Summary - Delores Gutierrez III, MD - 03/04/2018 1339 EDT Images from the original note were not included. RADIATION ONCOLOGY TREATMENT SUMMARY SITE, HISTOPATHOLOGY AND STAGE: [id number], PSA 12.8 [place] score 3+4 = 7 adenocarcinoma prostate. He [...] Dr. José. Sj Gutierrez MD Radiation Oncology [phone] (office) [phone] (pager) This note has been prepared with voice recognition software. Please excuse anode builder errors. documented in this encounter Plan of Treatment Not on filedocumented as of this encounter Visit Diagnoses Not on filedocumented in this encounter Care Teams Production Operations Engineer Relationship Specialty Start Date End Date Bobby Das MD PCP - General 07/06/[address] [place] [address],[address] [place] [phone] documented as of this encounter
--- OUTSIDE RECORDS SUMMARY | 2022-07-08 09:59 | XMS_ITS | Encounter Summary ---
:1940 Author Organization [facility] Address [address] [place] [address] Care Team Providers Name Role Phone Bobby Das MD Primary Care Provider Reason for Visit Reason Onset Date Comments Prostate Cancer 06/03/2018 Encounter Details Date Type Department Care Team Description 06/03/2018 Telephone [facility] Aries Gutierrez Cancer Radiation Oncology - III, [address] [address] [address], [place] [address] (Wo rk) Social History Tobacco Use Types Packs/Day Years Used Date Current Every Day Smoker Smokeless Tobacco: Never Used Sex Assigned at Date Recorded Not on file documented as of this encounter Miscellaneous Notes Telephone Encounter - Delores Gutierrez III, MD - 06/03/2018 6705 EDT RADIATION ONCOLOGY I spoke with Mr. Zamora by phone today. He tells me he is unable to make it to [place] for follow-up visits with me as he [...] office if he will be in the [place] area as I would be happyto move my schedule as needed to see him for follow-up. I did strongly encourage him to continue follow-up with Dr. José and asked him to call them to arrange an appointment. He canceled his next scheduled follow-up appointment with me. Sj Gutierrez MD Radiation Oncology [phone] (office) [phone] (pager) This note has been prepared with voice recognition software. Please excuse international trade specialist errors. documented in this encounter Plan of Treatment Not on filedocumented as of this encounter Visit Diagnoses Not on filedocumented in this encounter Care Teams Office Machine Technician Relationship Specialty Start Date End Date Bobby Das MD PCP - General 07/06/[address] [place] [address],[address] [place] [address] documented as of this encounter
--- OUTSIDE RECORDS SUMMARY | 2022-07-08 09:59 | XMS_ITS | Encounter Summary ---
:1940 Author Organization [facility] Address [address] [place] [address] Care Team Providers Name Role Phone Bobby Das MD Primary Care Provider Reason for Visit Reason Onset Date Comments Medication Management 02/16/2018 Encounter Details Date Type Department Care Team Description 02/16/2018 Orders Only [facility] Radiation De Law product marketing manager - [address] [phone] Social History Tobacco Use Types Packs/Day Years [...] on filedocumented in this encounter Care Teams Marketing Designer Relationship Specialty Start Date End Date Bobby Das MD PCP - General 07/06/[address] [place] [address],[address] [place] [address] documented as of this encounter
--- OUTSIDE RECORDS SUMMARY | 2022-07-08 09:59 | XMS_ITS | Encounter Summary ---
:1940 Author Organization [facility] Address [address] [place] [address] Care Team Providers Name Role Phone Bobby Das MD Primary Care Provider Encounter Details Date Type Department Care Team Description 01/08/2019 Orders Only [facility] Cancer Tram Aries Gutierrez neoplasm of Radiation Oncology - Felix EAST MD prostate ([facility]) [address] (Primary Dx) [address] [place] [address] [facility] [phone] [facility] Level 2 [place] [address] (Wo rk) Social History Tobacco Use Types Packs/Day Years Used Date Current Every Day Smoker Smokeless Tobacco: Never Used Sex Assigned at Date Recorded Not on file documented as of this encounter Plan of Treatment Not on filedocumented as of this encounter Results PSA TOTAL, DIAGNOSTIC (07/16/2019 9:30 EDT) PSA 0.1 0 - 6.5 ng/ml [facility] Comment: LABORATORY SERVICES Serum PSA concentration should not be interpreted as absolute evidence for the presence or absence of malignant disease. Assayed utilizing Siemens (Medstory) chemiluminescent technology. ??Values obtained by using different assay methods cannot be used interchangeably. Specimen Blood specimen (specimen) - Blood Performing Organization Address City/State/ZIP Code Phon e Number [facility] [address] [place] [address] SERVICES documented in this encounter Visit Diagnoses Diagnosis Malignant neoplasm of prostate ([facility]) (HCC) - Primary Malignant neoplasm of prostate documented in this encounter Care Teams Surveillance Observer Relationship Specialty Start Date End Date Bobby Das MD PCP - General 07/06/[address] [place] [address],[address] [place] [phone] documented as of this encounter
--- OUTSIDE RECORDS SUMMARY | 2022-07-08 09:59 | XMS_ITS | Encounter Summary ---
:1940 Author Organization [facility] Address [address] [place] [address] Care Team Providers Name Role Phone Bobby Das MD Primary Care Provider Reason for Visit Reason Onset Date Comments Cancer 02/16/2018 Encounter Details Date Type Department Care Team Description 02/16/2018 Orders Only [facility] Isela Law Maligna nt neoplasm of prostate (HCC-CMS) (Primary Dx); Radiation Oncology - RN Andvamshi n deprivation therapy [address] [address] Social History Tobacco Use Types Packs/Day Years [...] g documented in this encounter Care Teams Deputy Sheriff Lieutenant Relationship Specialty Start Date End Date Bobby Das MD PCP - General 07/06/[address] [place] [address] ,[address] [place] [address] documented as of this encounter
--- OUTSIDE RECORDS SUMMARY | 2022-07-08 09:59 | XMS_ITS | Encounter Summary ---
:1940 Author Organization [facility] Address [address] [place] [address] Care Team Providers Name Role Phone Bobby Das MD Primary Care Provider Encounter Details Date Type Department Care Team Description 02/25/2018 Documentation Visit [facility] Adama Vargas RN Radiation Oncology - [address] [place] [address] [place] [address] Social History Tobacco Use Types Packs/Day Years Used Date Current Every Day Smoker Smokeless Tobacco: Never Used Sex Assigned at Date Recorded Not on file documented as of this encounter Progress Notes Lynn Vargas RN - 02/25/2018 6653 EDT Koko Zamora requested to be seen [...] on filedocumented in this encounter Care Teams Structural Ironworker Relationship Specialty Start Date End Date Bobby Das MD PCP - General 07/06/[address] [place] [address],[address] [place] [address] documented as of this encounter
--- OUTSIDE RECORDS SUMMARY | 2022-07-08 09:59 | XMS_ITS | Encounter Summary ---
:1940 Author Organization [facility] Address [address] [place] [address] Care Team Providers Name Role Phone Bobby Das MD Primary Care Provider Encounter Details Date Type Department Care Team Description 01/08/2018 Procedure visit [facility] Center Aries Gutierrez Radiation Oncology - IIIMD [address] [address] [address], [place] [phone] (Wo rk) Social History Tobacco Use Types [...] prostate gland. DATE OF SERVICE: 01/08/2018 INDICATIONS: [id number], PSA 12.8 Winifred score 3+4 = 7 [...] documented as of this encounter Care Teams Clay Mine Cutting Machine Operator Relationship Specialty Start Date End Date Bobby Das MD PCP - General 07/06/[address] [place] [address] ,[address] [place] [address] documented as of this encounter
--- OUTSIDE RECORDS SUMMARY | 2022-07-08 09:59 | XMS_ITS | Encounter Summary ---
:1940 Author Organization [facility] Address [address] [place] [address] Care Team Providers Name Role Phone Bobby Das MD Primary Care Provider Encounter Details Date Type Department Care Team Description 06/17/2019 Results Only Imaging [facility]- Unknown, PRISM ProviderMD [phone] Social History Tobacco Use Types Packs/Day Years [...] filedocumented in this encounter Care Teams Senior Cost Accountant Relationship Specialty Start Date End Date Bobby Das MD PCP - General 07/06/[address] [place] [address] ,[address] [place] [address] documented as of this encounter
--- OUTSIDE RECORDS SUMMARY | 2022-07-08 09:59 | XMS_ITS | Encounter Summary ---
:1940 Author Organization [facility] Address [address] [place] [address] Care Team Providers Name Role Phone Bobby Das MD Primary Care Provider Reason for Visit Reason Comments Prostate Cancer Encounter Details Date Type Department Care Team Description 02/10/2018 Radiation Therapy [facility] Aries Gutierrez alignant neoplasm Visit Radiation Oncology Felix EAST MD of [facility] - [address] ([facility]) (Primary 111 [facility] Dx) [facility], [address] [place] [address] [address] [place] [address] Social History Tobacco Use Types [...] Assessment Completed By: Felix Gutierrez MD (02/10/18 8823) Radiation Therapy: Cumulative RT Dose 2400 cGy [...] Changes: None Sj Gutierrez MD Radiation Oncology [phone] (office) [phone] (pager) documented in this encounter Plan of Treatment Not on filedocumented as of this encounter Visit Diagnoses Diagnosis Malignant neoplasm of prostate (HCC-CMS) (HCC) - Primary Malignant neoplasm of prostate documented in this encounter Care Teams Pharmacy Intake Technician Relationship Specialty Start Date End Date Bobby Das MD PCP - General 07/06/[address] [place] [address] ,[address] [place] [phone] documented as of this encounter
--- OUTSIDE RECORDS SUMMARY | 2022-07-08 09:59 | XMS_ITS | Encounter Summary ---
:1940 Author Organization [facility] Address [address] [place] [address] Care Team Providers Name Role Phone Bobby Das MD Primary Care Provider Encounter Details Date Type Department Care Team Description 07/11/2019 Hospital Encounter [facility] Aries Gutierrez Radiation Oncology - III, [facility] [address] [place] [address] Pavilion, [place] [phone] (Wo rk) Social History Tobacco Use Types [...] on filedocumented in this encounter Care Teams Crop Setting Out Machine Operator Relationship Specialty Start Date End Date Bobby Das MD PCP - General 07/06/[address] [place] [address] ,[address] [place] [address] documented as of this encounter
--- OUTSIDE RECORDS SUMMARY | 2022-07-08 09:59 | XMS_ITS | Encounter Summary ---
:1940 Author Organization [facility] Address [address] [place] [address] Care Team Providers Name Role Phone Bobby Das MD Primary Care Provider Reason for Visit Reason Onset Date Comments Cancer 03/18/2018 Encounter Details Date Type Department Care Team Description 03/18/2018 Telephone [facility] Cancer Center Aries Gutierrez II, Cancer Radiation Oncology - [address] [address] [address], [place] [address] (Wo rk) Social History Tobacco Use Types Packs/Day Years Used Date Current Every Day Smoker Smokeless Tobacco: Never Used Sex Assigned at Date Recorded Not on file documented as of this encounter Miscellaneous Notes Telephone Encounter - Delores Gutierrez III, MD - 03/18/2018 0604 EDT RADIATION ONCOLOGY Mr. Zamora called the [...] this month. Sj Gutierrez MD Radiation Oncology [phone] (office) [phone] (pager) This note has been prepared with voice recognition software. Please excuse admin asst errors. documented in this encounter Plan of Treatment Not on filedocumented as of this encounter Visit Diagnoses Not on filedocumented in this encounter Care Teams Rubber Tile Floor Layer Relationship Specialty Start Date End Date Bobby Das MD PCP - General 07/06/[address] [place] [address] ,[address] [place] [address] documented as of this encounter
--- OUTSIDE RECORDS SUMMARY | 2022-07-08 09:59 | XMS_ITS | Encounter Summary ---
:1940 Author Organization [facility] Address [address] [place] [address] Care Team Providers Name Role Phone Bobby Das MD Primary Care Provider Encounter Details Date Type Department Care Team Description 01/16/2018 Results Only [facility] Cancer Center Aries Gutierrez Imaging Radiation Oncology - III, [facility] 111 [facility] [address] [place] [address] Pavilion, [place] [address] (Wo rk) Social History Tobacco Use Types [...] on filedocumented in this encounter Care Teams Retail Sales Assistant Relationship Specialty Start Date End Date Bobby Das MD PCP - General 07/06/[address] [place] [address] ,[address] [place] [address] documented as of this encounter
--- OUTSIDE RECORDS SUMMARY | 2022-07-08 09:59 | XMS_ITS | Encounter Summary ---
:[address] [facility] Address [address] [place] [address] Care Team Providers Name Role Phone Bobby Das MD Primary Care Provider Reason for Visit Reason Comments Prostate Cancer Follow up Encounter Details Date Type Department Care Team Description 07/16/2019 Office Visit [facility] Cancer Center Aries Gutierrez neoplasm of Radiation Oncology - Felix EAST MD prostate ([facility]) Main [address] (Primary Dx) [address] [place] [address] [place] [address], [place] [phone] [facility] Level [address] [place] [address] (Wo rk) Social History Tobacco [...] DATE OF SERVICE: 07/16/2019 DIAGNOSIS AND STAGE: [id number], PSA 12.8 Winifred score 3+4 = 7 [...] prepared with voice recognition software. Please excuse buggy man errors. documented in this encounter Plan of [...] ORAL) added in this encounter Care Teams Export Documents Clerk Relationship Specialty Start Date End Date Bobby Das MD PCP - General 07/06/[address] [place] [address],[address] [place] [address] documented as of this encounter
--- OUTSIDE RECORDS SUMMARY | 2022-07-08 09:59 | XMS_ITS | Encounter Summary ---
:1940 Author Organization [facility] Address [address] [place] [address] Care Team Providers Name Role Phone Bobby Das MD Primary Care Provider Reason for Visit Reason Comments Cancer Encounter Details Date Type Department Care Team Description 01/08/2018 Radiation Therapy [facility] Isela Law Ma lignant neoplasm of Visit Radiation Oncology - RN prostat e ([facility] Main [place] ([facility]) (Primary 111 [facility] Dx) [place] [address] Social History Tobacco Use Types [...] prostate documented in this encounter Care Teams Volunteer Recruitment Coordinator Relationship Specialty Start Date End Date Bobby Das MD PCP - General 07/06/[address] [place] [address],[address] [place] [phone] documented as of this encounter
--- OUTSIDE RECORDS SUMMARY | 2022-07-08 09:59 | XMS_ITS | Encounter Summary ---
:1940 Author Organization [facility] Address [address] [place] [address] Care Team Providers Name Role Phone Bobby Das MD Primary Care Provider Reason for Visit Reason Comments Cancer Encounter Details Date Type Department Care Team Description 02/13/2018 Radiation Therapy [facility] Isela Law Ma lignant neoplasm of Visit Radiation Oncology - RN prostat e ([facility]) Main [place] (Primary Dx) [address] [place] [address] Social History Tobacco Use Types Packs/Day [...] encounter diagnosis was Malignant neoplasm of prostate ([facility]). Assessment: Assessment Completed By: Isela Law [...] prostate documented in this encounter Care Teams Registered Nurse Supervisor Relationship Specialty Start Date End Date Bobby Das MD PCP - General 07/06/[address] [place] [address] ,[address] [place] [address] documented as of this encounter
--- OUTSIDE RECORDS SUMMARY | 2022-07-08 09:59 | XMS_ITS | Encounter Summary ---
:1940 Author Organization [facility] Address [address] [place] [address] Care Team Providers Name Role Phone Bobby Das MD Primary Care Provider Reason for Visit Reason Comments Prostate Cancer Encounter Details Date Type Department Care Team Description 02/17/2018 Radiation Therapy [facility] Aries Gutierrez alignant neoplasm Visit Radiation Oncology Felix EAST MD of [facility] - [address] ([facility]) (Primary 111 [facility] Dx) [facility], [address] [place] [address] [address] [place] [address] Social History Tobacco Use Types [...] encounter diagnosis was Malignant neoplasm of prostate ([facility]). Assessment: Assessment Completed By: Felix Gutierrez MD (02/17/18 4917) Radiation Therapy: Cumulative RT Dose 3600 cGy [...] Changes: None Sj Gutierrez MD Radiation Oncology [phone] (office) [phone] (pager) documented in this encounter Plan of Treatment Not on filedocumented as of this encounter Visit Diagnoses Diagnosis Malignant neoplasm of prostate (HCC-CMS) (HCC) - Primary Malignant neoplasm of prostate documented in this encounter Care Teams Client Application Support Engineer Relationship Specialty Start Date End Date Bobby Das MD PCP - General 07/06/[address] [place] [address] ,[address] [place] [address] documented as of this encounter
--- OUTSIDE RECORDS SUMMARY | 2022-07-08 09:59 | XMS_ITS | Encounter Summary ---
:1940 Author Organization [facility] Address [address] [place] [address] Care Team Providers Name Role Phone Bobby Das MD Primary Care Provider Encounter Details Date Type Department Care Team Description 07/16/2019 Hospital Encounter [facility] - Dayne Gutierrez [facility] III, MD [phone] [place] [address] [facility] [address] [place] [address] (Wo rk) Social History Tobacco [...] on filedocumented in this encounter Care Teams Historic Preservationist Relationship Specialty Start Date End Date Bobby Das MD PCP - General 07/06/[address] [place] [address] ,[address] [place] [address] documented as of this encounter
--- OUTSIDE RECORDS SUMMARY | 2022-07-08 09:59 | XMS_ITS | Encounter Summary ---
:1940 Author Organization [facility] Address [address] [place] [address] Care Team Providers Name Role Phone Bobby Das MD Primary Care Provider Reason for Visit Reason Onset Date Comments Follow-up 03/06/2018 Encounter Details Date Type Department Care Team Description 03/06/2018 Telephone [facility] Theron Rojas RN Follow-up Radiation Oncology - Main [address] [place] [phone] [place] [address] Social History Tobacco Use Types Packs/Day Years Used Date Current Every Day Smoker Smokeless Tobacco: Never Used Sex Assigned at Date Recorded Not on file documented as of this encounter Miscellaneous Notes Telephone Encounter - Rupal Rojas RN - 03/06/2018 1304 EDT I called and spoke with Koko [...] on filedocumented in this encounter Care Teams Track Welder Relationship Specialty Start Date End Date Bobby Das MD PCP - General 07/06/[address] [place] [address],[address] [place] [address] documented as of this encounter
--- OUTSIDE RECORDS SUMMARY | 2022-07-08 09:59 | XMS_ITS | Encounter Summary ---
:1940 Author Organization [facility] Address [address] [place] [address] Care Team Providers Name Role Phone Abby Das MD Primary Care Provider Encounter Details Date Type Department Care Team Description 04/22/2018 Results Only [facility] Abby Das MD [phone] [place] [address],[address] [place], [place] [phone] (Wo rk) Social History Tobacco Use Types Packs/Day Years Used Date Current Every Day Smoker Smokeless Tobacco: Never Used Sex Assigned at Date Recorded Not on file documented as of this encounter Plan of Treatment Not on filedocumented as of this encounter Procedures Procedure Name Priority Date/Time Associated Diagnosis [facility] SURGICAL PATHOLOGY Routine 04/22/2018 8:40 EDT Re sults for this procedure are i n the results section. documented in this encounter Results SURGICAL PATHOLOGY (04/22/2018 8:40 EDT) Pathology Report: SURGICAL PATHOLOGY REPORT [facility] Reports generated via electronic interface contain abram ginal data; LABORATORY however they are lacking the format of the original re port. SERVICES Caution should be taken when reading/interpreting unfo rmatted reports. Name: ? ETTA BAH ? Accession #: ? [id number] ? : ? 1940 (Age: 77) ??M [...] to Dr. Abby Das's offic e. (Dr. [place])/jamriat Document reviewed and electronically signed by: MARYCARMEN [...] Organization Address City/State/ZIP Code Phon e Number [facility] [address] [place] [address] SERVICES documented in this encounter Visit Diagnoses Not on filedocumented in this encounter Care Teams Sales Ambassador Relationship Specialty Start Date End Date Abby Das MD PCP - General 07/06/[address] [place] [address] ,[address] [place] [address] documented as of this encounter
--- OUTSIDE RECORDS SUMMARY | 2022-07-08 09:59 | XMS_ITS | Encounter Summary ---
:1940 Author Organization [facility] Address [address] [place] [address] Care Team Providers Name Role Phone Bobby Das MD Primary Care Provider Reason for Visit Reason Comments Cancer Encounter Details Date Type Department Care Team Description 02/06/2018 Radiation Therapy [facility] Lynn Vargas RN Malignant neoplasm Visit Radiation Oncology 111 [facility] ([facility] ([facility]) [address] [place] [address] (Primary Dx) [place] [phone] Social History Tobacco Use Types Packs/Day Years [...] encounter diagnosis was Malignant neoplasm of prostate ([facility]). Assessment: Assessment Completed By: Lynn Vargas RN [...] Visit Diagnoses Diagnosis Malignant neoplasm of prostate ([facility]) (HCC) - Primary Malignant neoplasm of prostate documented in this encounter Care Teams Rattling Machine Tender Relationship Specialty Start Date End Date Bobby Das MD PCP - General 07/06/[address] [place] [address],[address] [place] [address] documented as of this encounter
--- OUTSIDE RECORDS SUMMARY | 2022-07-08 09:59 | XMS_ITS | Encounter Summary ---
:1940 Author Organization [facility] Address [address] [place] [address] Care Team Providers Name Role Phone Bobby Das MD Primary Care Provider Encounter Details Date Type Department Care Team Description 01/16/2018 Documentation Visit [facility] Santhosh Cosby Radiation Oncology - Main [address] [phone] Social History Tobacco Use Types Packs/Day Years Used Date Current Every Day Smoker Smokeless Tobacco: Never Used Sex Assigned at Date Recorded Not on file documented as of this encounter Progress Notes Santhosh Cosby - 01/16/2018 0345 EST SOCIAL WORK ASSESSMENT: Amount of Distress: 0 Practical Problems: None Family Problems: None Emotional Problems: None Physical Problems: None Spiritual/Lutheran Concerns: No Other Problems: Social Work Assessment: [...] Prostate Cancer Living Arrangements: Pt lives in [place], [place] with his . They operate a [...] social work as needed. ASH Antonio phone [phone] pager [phone] documented in this encounter Plan of Treatment Not on filedocumented as of this encounter Visit Diagnoses Not on filedocumented in this encounter Care Teams Carrier Washer Relationship Specialty Start Date End Date Bobby Das MD PCP - General 07/06/[address] [place] [address],[address] [place] [phone] documented as of this encounter
--- OUTSIDE RECORDS SUMMARY | 2022-07-08 09:59 | XMS_ITS | Encounter Summary ---
:1940 Author Organization [facility] Address [address] [place] [address] Care Team Providers Name Role Phone Bobby Das MD Primary Care Provider Encounter Details Date Type Department Care Team Description 08/28/2020 Lab Requisition [facility] Outr Resulting Lab, Pathology & Laboratory Provider [facility] [address] [place], [place] [phone] Social History Tobacco Use Types Packs/Day Years [...] (08/28/2020 9:58 EDT) COVID-19 rt-PCR NEGATIVE Negative [facility] Result Comment: LABORATORY 2019-novel Coronavirus [...] Organization Address City/State/ZIP Code Phon e Number [facility] [place] [place] COVID-19 TESTING (08/28/2020 9:58 EDT) Pathologist [facility] COVID-19 rt-PCR NEGATIVE Negative [facility] Result Comment: LABORATORY 2019-novel Coronavirus (2019 [...] Administration's Emergency Use Authorization. Performing Lab [facility] LABORATORY SERVICES Specimen Swab Performing Organization Address City/State/ZIP Code Phon e Number [facility] [address] [place] [address] SERVICES [facility] [place] documented in this encounter Visit Diagnoses Not on filedocumented in this encounter Care Teams Sand Operator Relationship Specialty Start Date End Date Bobby Das MD PCP - General 07/06/[address] [place] [address] ,[address] [place] [address] documented as of this encounter
--- OUTSIDE RECORDS SUMMARY | 2022-07-08 09:59 | XMS_ITS | Encounter Summary ---
:1940 Author Organization [facility] Address [address] [place] [address] Care Team Providers Name Role Phone Bobby Das MD Primary Care Provider Encounter Details Date Type Department Care Team Description 08/03/2020 Lab Requisition [facility] Outr Resulting Lab, Pathology & Laboratory Provider [facility] [address] [place], [place] [id number] Social History Tobacco Use Types Packs/Day Years [...] (08/03/2020 12:22 EDT) COVID-19 rt-PCR NEGATIVE Negative [facility] [facility] [...] Address City/State/ZIP Code Phon e Number [facility] [place], [place] COVID-19 TESTING (08/03/2020 12:22 EDT) Pathologist [facility] COVID-19 rt-PCR NEGATIVE Negative [facility] Result Comment: LABORATORY 2019-novel Coronavirus (2019 -nCoV) [...] Emergency Use Authorization. Performing Lab [facility] LABORATORY SERVICES Specimen Swab Performing Organization Address City/State/ZIP Code Phon e Number [facility] [address] [place] [address] SERVICES [facility] [place], [place] documented in this encounter Visit Diagnoses Not on filedocumented in this encounter Care Teams Pipe Testing Technician Relationship Specialty Start Date End Date Bobby Das MD PCP - General 07/06/[address] [place] [address] ,[address] [place] [address] documented as of this encounter
--- OUTSIDE RECORDS SUMMARY | 2022-07-08 09:59 | XMS_ITS | Encounter Summary ---
:1940 Author Organization [facility] Address [address] [place] [address] Care Team Providers Name Role Phone Bobby Das MD Primary Care Provider Encounter Details Date Type Department Care Team Description 04/12/2021 Lab Requisition [facility] Outr Resulting Lab, Pathology & Laboratory Provider [facility] [address] [place], [place] [phone] Social History Tobacco Use Types Packs/Day Years [...] nature Testosterone 269 229 - 902 ng/dL [facility] Specimen Blood - Venous blood (substance) Narrative [facility] - 04/12/2021 22:19 EDT The results of this assay can be falsley elevated due to the consumption of Biotin. Performing Organization Address City/State/ZIP Code Phon e Number [facility] [address] [place] [address] SERVICES documented in this encounter Visit Diagnoses Not on filedocumented in this encounter Care Teams Deposition Operator Relationship Specialty Start Date End Date Bobby Das MD PCP - General 07/06/[address] [place] [address] ,[address] [place] [address] documented as of this encounter
--- OUTSIDE RECORDS SUMMARY | 2022-07-08 09:59 | XMS_ITS | Encounter Summary ---
:1940 Author Organization [facility] Address [address] [place] [address] Care Team Providers Name Role Phone Bobby Das MD Primary Care Provider Encounter Details Date Type Department Care Team Description 07/16/2019 Phlebotomy Only [facility] Director Day Care Center, Eboni barbosa neoplasm - [facility] Outpatient of prostate [address] [facility] ([facility]) (Primary [place], [place] Dx) [address] Social History Tobacco Use [...] DIAGNOSTIC of prostate procedure are i n ([facility]) the results section. documented in this encounter Results PSA TOTAL, DIAGNOSTIC (07/16/2019 9:30 EDT) PSA 0.1 0 - 6.5 ng/ml [facility] Comment: LABORATORY SERVICES Serum PSA concentration should not be interpreted as absolute evidence for the presence or absence of malignant disease. Assayed utilizing Siemens ([employer]) chemiluminescent technology. ??Values obtained by using different assay methods cannot be used interchangeably. Specimen Blood specimen (specimen) - Blood Performing Organization Address City/State/ZIP Code Phon e Number [facility] [address] [place] [address] SERVICES documented in this encounter Visit Diagnoses Diagnosis Malignant neoplasm of prostate ([facility]) (HCC) - Primary Malignant neoplasm of prostate documented in this encounter Orders Lab Orders Without Results Count Last Ordered Date st Ordered Date PSA TOTAL, DIAGNOSTIC 1 07/16/2019 documented in this encounter Care Teams Tooth Cutter Relationship Specialty Start Date End Date Bobby Das MD PCP - General 07/06/[address] [place] [address],[address] [place] [address] documented as of this encounter
--- OUTSIDE RECORDS SUMMARY | 2022-07-08 10:00 | XMS_ITS | Encounter Summary ---
:1940 Author Organization [facility] Address [address] [place] [address] Care Team Providers Name Role Phone Bobby Das MD Primary Care Provider Reason for Visit Reason Comments Prostate Cancer Encounter Details Date Type Department Care Team Description 11/19/2017 Office Visit [facility] Aries Gutierrez neoplasm of Radiation Oncology - Felix EAST MD prostate ([facility] Main [address] ([facility]) (Primary 111 [facility] Dx) [place], [place] [phone] [place] [address] [facility] [address] [place] [address] (Wo rk) Social History Tobacco [...] Dr. José. Primary Site, Histopathology and Stage: [id number], PSA 12.8 [place] score 3+4 = 7 adenocarcinoma of the [...] score 3+3 disease at the left base, [place] score 3+4 disease at the left apex, he had ANDREINA/pin in another core biopsy from the left apex. His pathology was reviewed here at [facility] which was confirmatory.A bone scan is [...] Social History: He is and lives in [facility]. 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 Once that result is available [...] prepared with voice recognition software. Please excuse ops manager errors documented in this encounter Plan of [...] daily. added in this encounter Care Teams Electrical Power Station Technician Relationship Specialty Start Date End Date Bobby Das MD PCP - General 07/06/[address] [place] [address] ,[address] [place] [address] documented as of this encounter
--- OUTSIDE RECORDS SUMMARY | 2022-07-08 10:00 | XMS_ITS | Encounter Summary ---
:1940 Author Organization [facility] Address [address] [place] [address] Care Team Providers Name Role Phone Bobby Das MD Primary Care Provider Reason for Visit Reason Onset Date Comments Medication Management 11/21/2017 Encounter Details Date Type Department Care Team Description 11/21/2017 Orders Only [facility] Radiation De Law RN Oncology - [address] [phone] Social History Tobacco Use Types Packs/Day Years [...] on filedocumented in this encounter Care Teams Interior Specialist Relationship Specialty Start Date End Date Bobby Das MD PCP - General 07/06/[address] [place] [address] ,[address] [place] [address] documented as of this encounter
--- OUTSIDE RECORDS SUMMARY | 2022-07-08 10:00 | XMS_ITS | Encounter Summary ---
:1940 Author Organization [facility] Address [address] [place] [address] Care Team Providers Name Role Phone Unknown, Provider Primary Care Provider Encounter Details Date Type Department Care Team Description 07/03/2015 Results Only [facility] Abby Das MD [phone] [place] [address],[address] [place], [place] [phone] (Wo rk) Social History Tobacco Use Types Packs/Day Years Used Date Never Assessed Sex Assigned at Date Recorded Not on file documented as of this encounter Plan of Treatment Not on filedocumented as of this encounter Procedures Procedure Name Priority Date/Time Associated Diagnosis Comme [facility] SURGICAL PATHOLOGY Routine 07/03/2015 8:54 EDT Re sults for this procedure are i n the results section. documented in this encounter Results SURGICAL PATHOLOGY (07/03/2015 8:54 EDT) Pathology Report: SURGICAL PATHOLOGY REPORT [facility] Reports generated via electronic interface contain abram ginal data; LABORATORY however they are lacking the format of the original re port. SERVICES Caution should be taken when reading/interpreting unfo rmatted reports. Name: ? ETTA BAH ? Accession #: ? [id number] ? : ? 1940 (Age: 74) ??M ? Collect Date: ? 07/03/2015 ? Location: ? [facility] ? Receive Date: ? 07/04/20 15 ? Provider: ABBY DAS MD Copy to: ? Final Pathologic Diagnosis: SKIN OF YAZIDI, RIGHT, EXCISION: - Basal cell carcinoma, infiltrative [...] the above diagnosi s. Specimen(s) Received: R shinto Clinical History: Basal cell carcinoma reexcision Gross [...] Number [facility] [address] [place] [address] SERVICES documented in this encounter Visit Diagnoses Not on filedocumented in this encounter Care Teams Film Librarian Relationship Specialty Start Date End Date Unknown, Provider, PCP - General 07/03/15 07/05/15 documented as of this encounter
--- OUTSIDE RECORDS SUMMARY | 2022-07-08 10:00 | XMS_ITS | Encounter Summary ---
:1940 Author Organization [facility] Address [address] [place] [address] Care Team Providers Name Role Phone Unknown, Provider Primary Care Provider Encounter Details Date Type Department Care Team Description 07/03/2015 Hospital Encounter [facility]- Devi Unknown, Provider, [facility] 0 [facility] [phone] [place] [address] (Work) [phone] Social History Tobacco Use Types Packs/Day Years Used Date Never Assessed Sex Assigned at Date Recorded Not on file documented as of this encounter Discharge Disposition Disposition Code Departure Means Destination Home or Self Retirement documented in this encounter Plan of Treatment Not on filedocumented as of this encounter Visit Diagnoses Not on filedocumented in this encounter Care Teams Automatic Seamer Relationship Specialty Start Date End Date Unknown, Provider, PCP - General 07/03/15 07/05/15 documented as of this encounter
--- OUTSIDE RECORDS SUMMARY | 2022-07-08 10:00 | XMS_ITS | Encounter Summary ---
:1940 Author Organization [facility] Address [address] [place] [address] Care Team Providers Name Role Phone Bobby Das MD Primary Care Provider Reason for Visit Reason Onset Date Comments Prostate Cancer 11/20/2017 Encounter Details Date Type Department Care Team Description 11/20/2017 Telephone [facility] Aries Gutierrez Cancer Radiation Oncology - III, [address] [address] [address], [place] [address] (Wo rk) Social History Tobacco Use Types Packs/Day Years Used Date Current Every Day Smoker Smokeless Tobacco: Never Used Sex Assigned at Date Recorded Not on file documented as of this encounter Miscellaneous Notes Telephone Encounter - Delores Gutierrez III, MD - 11/20/2017 2687 EST RADIATION ONCOLOGY I spoke with Mr. Zamora by phone today. [facility] todayreveals no evidence of metastatic disease. He is eager to start therapy. I discussed his care with Dr. José. We will coordinate initiation of androgen deprivation as soon as practical. He will return for fiducial marker placement in approximately 6 weeks, anticipate we will start his treatment approximately 2 months after his first injection. Sj Gutierrez MD Radiation Oncology [phone] (office) [phone] (pager) This note has been prepared with voice recognition software. Please excuse corn husker machine operator errors. documented in this encounter Plan of Treatment Not on filedocumented as of this encounter Visit Diagnoses Diagnosis Malignant neoplasm of prostate (HCC-CMS) (HCC) - Primary Malignant neoplasm of prostate documented in this encounter Care Teams Manager Radio Relationship Specialty Start Date End Date Bobby Das MD PCP - General 07/06/[address] [place] [address],[address] [place] [address] documented as of this encounter
--- OUTSIDE RECORDS SUMMARY | 2022-07-08 10:00 | XMS_ITS | Encounter Summary ---
:1940 Author Organization [facility] Address [address] [place] [address] Care Team Providers Name Role Phone Bobby Das MD Primary Care Provider Encounter Details Date Type Department Care Team Description 01/08/2018 Hospital Encounter [facility] Aries Gutierrez Radiation Oncology - III, [facility] [address] [address] [address], [place] [phone] (Wo rk) Social History Tobacco Use Types [...] Code Departure Means Destination Home or Self Group Home documented in this encounter Plan of Treatment Not on filedocumented as of this encounter Visit Diagnoses Not on filedocumented in this encounter Care Teams Wheel Fitter Relationship Specialty Start Date End Date Bobby Das MD PCP - General 07/06/[address] [place] [address],[address] [place] [address] documented as of this encounter
--- OUTSIDE RECORDS SUMMARY | 2022-07-08 10:00 | XMS_ITS | Encounter Summary ---
:1940 Author Organization [facility] Address [address] [place] [address] Care Team Providers Name Role Phone Bobby Das MD Primary Care Provider Reason for Visit Reason Comments Follow-up Injection Encounter Details Date Type Department Care Team Description 01/05/2018 Office Visit [facility] Erlin José MD Malignant neoplasm of Urology - Main [address] [place] [address] ([facility] (Primary 111 [facility] [place] [address] [address], [place] [address] (Wo rk) Social History Tobacco [...] Progress Notes Chino José MD - 01/05/2018 6662 EST Chief Complaint: Chief Complaint Patient presents with ??? Follow-up Injection HPI: Koko is a 77 y.o. male with prostate cancer. Grant presented with an elevated PSA to 12.8 shaw palpable nodule and on biopsy had 2 out of 12 cores positive for Winifred 3+3 and [place] 3+4 prostate cancer. T2a. He previously had [...] Dr. Gutierrez this week See me at [facility] after radiation therapy is complete [...] mg documented in this encounter Care Teams Customer Experience Professional Relationship Specialty Start Date End Date Bobby Das MD PCP - General 07/06/[address] [place] [address],[address] [place] [address] documented as of this encounter
--- OUTSIDE RECORDS SUMMARY | 2022-07-08 10:00 | XMS_ITS | Encounter Summary ---
:1940 Author Organization [facility] Address [address] [place] [address] Care Team Providers Name Role Phone Bobby Das MD Primary Care Provider Encounter Details Date Type Department Care Team Description 10/29/2017 Results Only [facility] Erlin José MD Urology - [address] [address] [place], [place] [phone] (Wo rk) Social History Tobacco Use Types Packs/Day Years Used Date Never Assessed Sex Assigned at Date Recorded Not on file documented as of this encounter Plan of Treatment Not on filedocumented as of this encounter Procedures Procedure Name Priority Date/Time Associated Diagnosis Comme [facility] SURGICAL PATHOLOGY Routine 10/29/2017 8:21 EST Re sults for this procedure are i n the results section. documented in this encounter Results SURGICAL PATHOLOGY (10/29/2017 8:21 EST) Pathology SURGICAL PATHOLOGY REPORT [facility] MEDICAL Report: Reports generated via electronic interface conta in original data; CENTER LABORATORY however they are lacking the format of the original re port. SERVICES Caution should be taken when reading/interpreting unfo rmatted reports. Name: ? ETTA BAH ? Accession #: ? [id number] ? : ? 1940 (Age: 77) ??M [...] to 6: Prognostic Grad e Group I Chauncey score 3+4=7: Prognostic Grade Group II Chauncey score 4+3=7: Prognostic Grade Group III Winifred score 8: Prognostic Grade Group IV Winifred score 9-10: Prognostic Grade Group V References for Prognostic Grade Groups: J Clin Hercules 2012;30:7842-2388 Joey CASTAÑEDA. The Winifred Grading System (A Comple te Guide for Pathologists and Clinicians), LWW, 2013 Serg PM, Shell PW, Edward AW, Joey JI. Progno stic Winifred Grade Grouping: Data based on the modified Chauncey scoring s yste. BJU Int 2013;111:753-760 A. [...] leason pattern: ? Grade 3 ?- ??Secondary Chauncey pattern: ? Grade 3 ?- ??Total Gle [...] of 2 cores. ? - Global tumor Chauncey score: ?3 + 4 = 7 (30% [...] Organization Address City/State/ZIP Code Phon e Number [facility] [address] [place] [address] SERVICES documented in this encounter Visit Diagnoses Not on filedocumented in this encounter Care Teams Furnace Process Supervisor Relationship Specialty Start Date End Date Bobby Das MD PCP - General 07/06/[address] [place] [address] ,[address] [place] [phone] documented as of this encounter
--- OUTSIDE RECORDS SUMMARY | 2022-07-08 10:00 | XMS_ITS | Encounter Summary ---
:1940 Author Organization [facility] Address [address] [place] [address] Care Team Providers Name Role Phone Bobby Das MD Primary Care Provider Encounter Details Date Type Department Care Team Description 10/29/2017 Hospital Encounter [facility]- Devi Unknown, Provider, [facility] [address] [facility] [phone] [place] [address] (Work) [phone] Social History Tobacco Use Types Packs/Day Years Used Date Never Assessed Sex Assigned at Date Recorded Not on file documented as of this encounter Discharge Disposition Disposition Code Departure Means Destination Home or Self Penitentiary documented in this encounter Plan of Treatment Not on filedocumented as of this encounter Visit Diagnoses Not on filedocumented in this encounter Care Teams Bulk Plant Agent Relationship Specialty Start Date End Date Bobby Das MD PCP - General 07/06/[address] [place] [address],[address] [place] [address] documented as of this encounter
--- OUTSIDE RECORDS SUMMARY | 2022-07-08 10:00 | XMS_ITS | Encounter Summary ---
:1940 Author Organization [facility] Address [address] [place] [address] Care Team Providers Name Role Phone Bobby Das MD Primary Care Provider Encounter Details Date Type Department Care Team Description 11/20/2017 Results Only [facility]- Unknown, [facility] ProviderMD [phone] Social History Tobacco Use Types Packs/Day Years [...] on filedocumented in this encounter Care Teams Diesel Mechanic Apprentice Relationship Specialty Start Date End Date Bobby Das MD PCP - General 07/06/[address] [place] [address],[address] [place] [address] documented as of this encounter
--- OUTSIDE RECORDS SUMMARY | 2022-07-10 09:34 | XMS_ITS | Encounter Summary ---
:1940 [place] [address] Care Team Providers Name Role Phone Bobby Das MD Primary Care Provider Encounter Details Date Type Department Care Team Description 06/13/2022 Tech Visit Vascular Lab at [facility], Doming[place] [address] Social History Tobacco Use Types Packs/Day [...] [facility] DR GASTROENTEROLOGY DEPT [place], [place] [address] (Wo rk) 09/05/2022 Appointment Cardiology Trinity Reid MD [facility] CARDIOLOGY [place], [place] [address] (Wo rk) 09/05/2022 Office Visit Cardiology Trinity Reid MD [facility] CARDIOLOGY [place], [place] [address] (Wo rk) documented as of this encounter Procedures Procedure Name Priority Date/Time Associated Diagnosis Comme nts JOSSELYN, LEGS, MULTIPLE Routine 06/13/2022 7:13 AM Limb ischemia R esults for this LEVELS EDT procedure are i n the results section. documented in this encounter Results JOSSELYN, legs, multiple levels (06/13/2022 7:13 AM EDT) Component Value Ref Test Analysis Performed At [facility] Range Method Time Signature VB Text Department: Vascular Surgery Lab [facility] Report Patient: [id number] (ETTA BAH) CPT: 10247 Referring Physician: FITO SUMMERS ?? 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 Diabetes mellitus: no Findings: Right [...] disorder documented in this encounter Care Teams Food Service Worker Relationship Specialty Start Date End Date Bobby Das MD PCP - General 10/02/[address] [place] [address] [place] [phone] documented as of this encounter
--- OUTSIDE RECORDS SUMMARY | 2022-07-10 09:34 | XMS_ITS | Encounter Summary ---
:1940 Author Organization [facility] [place] [address] Care Team Providers Name Role Phone Bobby Das MD Primary Care Provider Encounter Details Date Type Department Care Team Description 06/19/2022 Telephone [facility] [place] [facility] Kourtney Jimenez, RN [facility] [place] [address] Social History Tobacco Use Types Packs/Day [...] Zamora: Requesting a referral to Cardiac Rehab [facility] Forward to Dr Reid documented in this encounter Plan of Treatment Upcoming Encounters Date Type Specialty Care Team Description 08/08/2022 Office Visit Gastroenterology Negra Collins MD [facility] GASTROENTEROLOGY DEPT [place], [place] [address] (Wo rk) 09/05/2022 Appointment Cardiology Trinity Reid MD [facility] CARDIOLOGY [place], [place] [address] (Wo rk) 09/05/2022 Office Visit Cardiology Trinity Reid MD [facility] CARDIOLOGY [place], [place] [address] (Wo rk) documented as of this encounter Visit Diagnoses Not on filedocumented in this encounter Care Teams Art Coordinator Relationship Specialty Start Date End Date Bobby Das MD PCP - General 10/02/[address] [place] [address] [place] [address] documented as of this encounter
--- OUTSIDE RECORDS SUMMARY | 2022-07-10 09:34 | XMS_ITS | Encounter Summary ---
:1940 Author Organization [facility] [place] [address] Care Team Providers Name Role Phone Bobby Das MD Primary Care Provider Encounter Details Date Type Department Care Team Description 06/25/2022 Hospital Encounter Gastroenterology at [facility] Giovani Ponce, [facility] [place] [address] [facility] [phone] [place] [address] Social History Tobacco Use Types Packs/Day [...] the day after the procedure, use an mvle-can-fteuwyw spray to numb your throat. Sucking on [...] occurs, please contact your Doctor. Please call [phone] before 8pm Mon-Fri with problems, questions or concerns. If you call after 8pm or on weekends, call the Hospital at [phone] and ask to speak to the Vrt Mechanic orthodontist small business owner and the gray mixing operator will contact that person for you. When should you call for help? Call [phone] anytime you think you may need emergency [...] Where can you learn more? [facility] View your After Visit Summary and more online at [email or web address] If you would like to provide feedback about your hospital experience, please call the Office of Patient and Family Relations at . If you have received this After Visit Summary in error, please immediately return it in person to the department, or notify the [facility] Privacy Office by calling toll free at between the hours of 8AM and 5PM to arrange for our retrieval of the documents at no cost to you. Content Version: 12.2 ?? 3977-8430 [employer]. Care instructions adapted under license by [facility]. If you have questions about a medical condition or this instruction, always ask your healthcare professional. [employer] disclaims any warranty or liability for your [...] occurs, please contact your Doctor. Please call [phone] before 8pm Mon-Fri with problems, questions or concerns. If you call after 8pm or on weekends, call the Hospital at [phone] and ask to speak to the Vrt Mechanic orthodontist small business owner and the gray mixing operator will contact that person for you. When should you call for help? Call [phone] anytime you think you may need emergency [...] Where can you learn more? [facility] View your After Visit Summary and more online at [email or web address] If you would like to provide feedback about your hospital experience, please call the Office of Patient and Family Relations at . If you have received this After Visit Summary in error, please immediately return it in person to the department, or notify the [facility] Privacy Office by calling toll free at between the hours of 8AM and 5PM to arrange for our retrieval of the documents at no cost to you. Content Version: 12.2 ?? 2750-2686 [employer]. Care instructions adapted under license by [facility]. If you have questions about a medical condition or this instruction, always ask your healthcare professional. [employer] disclaims any warranty or liability for [...] 21 (FLONASE) 50 mcg/actuation Nare route daily [place], Suspension as needed. fluorouraciL (EFUDEX) 5 % [...] ischemia I99.8 ??? Coronary artery disease involving quechan coronary artery of quechan heart without angina wmcfgbucG81.10 ??? HFrEF (heart failure with reduced ejection [...] Visit Gastroenterology Negra Collins MD [facility] GASTROENTEROLOGY DEPT [place], [place] [address] (Wo rk) 09/05/2022 Appointment Cardiology Trinity Reid MD [facility] CARDIOLOGY [place], [place] [address] (Wo rk) 09/05/2022 Office Visit Cardiology Trinity Reid MD [facility] ER DR CARDIOLOGY [place] [address] (Wo rk) documented [...] Component Value Ref Test Analysis Performed At [facility] Range Method Time Signature UPPER GI [facility] ENDOSCOPY Endoscopy Procedure Date: 06/25/2022 10:33 AM ? Patient Name: Koko Zamora ? Date of : 1940 ? Age: 81 ? Order #: [id number] ? Instrument Name: EC-760P- [id number]- [id number] ? Procedure: ? Upper GI endoscopy Indications: ? Recent gastrointestinal bleeding Providers: ? Giovani Ponce, Isi puente, ? Brissa Vee RN, Juvenal ? Confalone Referring MD: ?[facility]: ? Propofol per Anesthesia Complications: ? No [...] Endoscope w as ? introduced through the [facility], and ? advanced to the second par [...] [facility] Method Time Signature COLONOSCOPY [facility] Endoscopy Procedure Date: 06/25/2022 10:33 AM ? Patient Name: Koko Zamora ? Date of : 1940 ? Age: 81 ? Order #: [id number] ? Instrument Name: EC-760P- [id number] ? Procedure: ? Colonoscopy Indications: ? Gastrointestinal [...] Procedure Code(s): ? --- Professional --- ? 68330, Colonoscopy, flexib le; with ? control of [...] of sigmoid ? colon CPT copyright 202 [employer]. All rights reserved. The codes documented in this report are preliminary and upon concrete mixing truck driver review may be revised to meet current [...] Procedure) documented in this encounter Care Teams Inflated Pad Buffer Relationship Specialty Start Date End Date Bobby Das MD PCP - General 10/02/[address] [place] [address] [place] [phone] documented as of this encounter
--- OUTSIDE RECORDS SUMMARY | 2022-07-10 09:34 | XMS_ITS | Encounter Summary ---
:1940 [place] [address] Care Team Providers Name Role Phone Bobby Das MD Primary Care Provider Encounter Details Date Type Department Care Team Description 06/13/2022 Office Visit Vascular Surgery at [facility] Fito Summers MD Limb ischemia [facility] [place] [address] VASCULAR SURGERY [phone] [place] [phone] (Wo rk) Social History Tobacco Use Types [...] s/p repair Overview Note: Surgery done at [facility] in 2000 ??? Hypertriglyceridemia Overview Note: [...] with ABIs. Fito Summers MD Vascular Surgery [facility] Emily Power CMA - 06/13/2022 8:00 AM EDT Handwashing performed, gloves on.As instructed by windy removed on LLE medial and lateral aspect, cleansed after staple remover, steri strips applied. Gloves off, handwashing performed. documented in this encounter Plan of Treatment Upcoming Encounters Date Type Specialty Care Team Description 08/08/2022 Office Visit Gastroenterology Negra Collins MD [facility] GASTROENTEROLOGY DEPT [place], [place] [address] (Wo rk) 09/05/2022 Appointment Cardiology Trinity Reid MD [facility] [address] [place], [place] [address] (Wo rk) 09/05/2022 Office Visit Cardiology Trinity Reid MD [facility] DR [address] [place], [place] [address] (Wo rk) documented as of this encounter Visit Diagnoses Diagnosis Limb ischemia Unspecified circulatory system disorder documented in this encounter Care Teams Tea Tree Farm Worker Relationship Specialty Start Date End Date Bobby Das MD PCP - General 10/02/[address] [place] [address] [place] [address] documented as of this encounter
--- OUTSIDE RECORDS SUMMARY | 2022-07-10 09:34 | XMS_ITS | Encounter Summary ---
:1940 Author Organization [facility] [place] [address] Care Team Providers Name Role Phone Bobby Das MD Primary Care Provider Encounter Details Date Type Department Care Team Description 06/23/2022 Telephone Gastroenterology at [facility] Alan August MD [place] [address] GASTROENTEROLOGY DEPT [phone] [place], [place] [address] (Wo rk) Social History Tobacco [...] Date: 06/23/2022 Time: 2:27 AM Referring Location: [facility] Referring Provider: Shahram Urena DC HPI: This [...] Negra Collins MD [facility] GASTROENTEROLOGY DEPT [place], [place] [address] ( rk) 09/05/2022 Appointment Cardiology Trinity Reid MD [facility] CARDIOLOGY [place], [place] [address] ( rk) 09/05/2022 Office Visit Cardiology Trinity Reid MD [facility] CARDIOLOGY [place], [place] [address] ([facility]) documented as of this encounter Visit Diagnoses Not on filedocumented in this encounter Care Teams Helium Arc Welder Relationship Specialty Start Date End Date Bobby Das MD PCP - General 10/02/[address] [place] [address] [place] [phone] documented as of this encounter
--- OUTSIDE RECORDS SUMMARY | 2022-07-10 09:34 | XMS_ITS | Encounter Summary ---
:1940 Author Organization [facility] Address [facility] [place] [address] Care Team Providers Name Role Phone Bobby Das MD Primary Care Provider Encounter Details Date Type Department Care Team Description 06/24/2022 Telephone Gastroenterology at [facility] Alan August MD [facility] [place] [address] GASTROENTEROLOGY DEPT [phone] [place], [place] [address] (Wo rk) Social History Tobacco [...] data. [facility] [...] and no diverticulosis. This was done at [facility]. HgB 8.6 today. There has [...] Negra Collins MD [facility] GASTROENTEROLOGY DEPT [place], [place] [address] (Wo rk) 09/05/2022 Appointment Cardiology Trinity Reid MD [facility] CARDIOLOGY [place], [place] [address] (Wo rk) 09/05/2022 Office Visit Cardiology Trinity Reid MD [facility] CARDIOLOGY [place], [place] [address] (Wo rk) documented as of this encounter Visit Diagnoses Not on filedocumented in this encounter Care Teams Antichecking Iron Worker Relationship Specialty Start Date End Date Bobby Das MD PCP - General 10/02/[address] [place] [address] [place] [phone] documented as of this encounter
--- OUTSIDE RECORDS SUMMARY | 2022-07-10 09:34 | XMS_ITS | Encounter Summary ---
:1940 Author Organization [facility] [place] [address] Care Team Providers Name Role Phone Bobby Das MD Primary Care Provider Reason for Referral Diagnostic Test (Routine) - Authorized Specialty Diagnoses / Procedures Referred By Contact Refer red To Contact Cardiology Diagnoses HFrEF (heart failure with reduced ejection fraction) Alan Reid MD [facility] Non-Inv Card Lab Procedures Echocardiogram [place] [address] [place] [address] Fax: Referral ID Status Reason Start Expiration Visits Visits Date Date Requested Authorized [id number] Authorized Specialty 06/13/2022 06/13/2023 1 1 Service Requested Reason for Visit Consultation (Routine) - Closed Specialty Diagnoses / Procedures Referred By Contact Refer red To Contact Cardiology Diagnoses HFrEF (heart failure with reduced ejection fraction) Paroxysmal atrial fibrillation Post-hospital follow-up, s/p PCI with stenting, heart failure Nasrin Parra PA [facility] Cardiology [address] [facility] [place] [address] [place] [address] Referral ID Status Reason Start Date Expiration Date Visits V isits Requested Authorized [id number] Closed Consult, 05/21/2022 05/21/2023 1 1 Test & Treat Encounter Details Date Type Department Care Team Description 06/13/2022 Office Visit Cardiology at [facility] Alan Reid Coronary artery disease invo lving koyuk coronary artery of [place] heart without angina pectoris; [facility] MD Kurt HFrEF (heart failure with reduced ejecti on fraction); Drive [facility] [place] [address] CARDIOLOGY [phone] [place], [place] [address] Social History Tobacco Use Types [...] from the original note were not included. [facility] [place] [address] CARDIOLOGY OUTPATIENT PROGRESS NOTE PRIMARY CARE PROVIDER: Bobby Das MD REFERRING PROVIDER: Nasrin Parra PROBLEM LIST: Patient Active Problem List Diagnosis ??? 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 Hypertriglyceridemia ??? Adhesive [...] 3 ??? fluticasone propionate (FLONASE) 50 mcg/actuation [place], Suspension 1 spray by Each Nare route [...] healing well. Markedly diminished left radial pulse. DIGITAL STRATEGY MANAGER: Normal mentation. Psych: Appropriate affect. Labs: Lab [...] device therapy possiblyincluding AV node ablation and PRESSURE WASHER-D. 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 Your new medication is [...] for consideration of AV node ablation and PRESSURE WASHER-D Assessment & Plan Note - Alan Reid MD - 06/13/2022 10:22 AM EDT Associated Problem(s): Coronary artery disease involving koy[place] coronary artery of [place] heart without angina pectoris His coronary disease [...] device therapy possiblyincluding AV node ablation and PRESSURE WASHER-D. documented in this encounter Plan of Treatment Upcoming Encounters Date Type Specialty Care Team Description 08/08/2022 Office Visit Gastroenterology Negra Collins MD [facility] DR GASTROENTEROLOGY DEPT [place], [place] [address] (Wo rk) 09/05/2022 Appointment Cardiology Trinity Reid MD [facility] CARDIOLOGY [place], [place] [address] (Wo rk) 09/05/2022 Office Visit Cardiology Trinity Reid MD [facility] CARDIOLOGY [place], [place] [address] (Wo rk) Scheduled Orders Name Type Priority Associated Order Schedule Diagnoses Echocardiogram Echocardiography Routine HFrEF (heart Expected: Transthoracic failure with 08/13/2022, reduced ejection Expires: fraction) 02/12/2023 documented as of this encounter Visit Diagnoses Diagnosis 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
--- OUTSIDE RECORDS SUMMARY | 2022-07-10 09:34 | XMS_ITS | Encounter Summary ---
:1940 Author Organization [facility] [place] [address] Care Team Providers Name Role Phone Bobby Das MD Primary Care Provider Encounter Details Date Type Department Care Team Description 07/01/[address] [facility], Zainab Dupree, TANB[employer] LAB[employer]ER [address] [place] [address] Social History Tobacco Use Types Packs/Day [...] encounter Miscellaneous Notes Telephone Encounter - Loretta oChen MD - 07/02/2022 4:34 PM EDT Called [...] [facility] DR GASTROENTEROLOGY DEPT [place], [place] [address] (Wo rk) 09/05/2022 Appointment Cardiology Trinity Reid MD [facility] CARDIOLOGY [place], [place] [address] (Wo rk) 09/05/2022 Office Visit Cardiology Trinity Reid MD [facility] CARDIOLOGY [place], [place] [address] (Wo rk) documented as of this encounter Visit Diagnoses Not on filedocumented in this encounter Care Teams Load Builder Relationship Specialty Start Date End Date Bobby Das MD PCP - General 10/02/[address] [place] [address] [place] [phone] documented as of this encounter
--- OUTSIDE RECORDS SUMMARY | 2022-07-10 09:34 | XMS_ITS | Encounter Summary ---
:1940 Author Organization [facility] [place] [address] Care Team Providers Name Role Phone Abby Das MD Primary Care Provider Encounter Details Date Type Department Care Team Description 06/25/2022 Anesthesia Event Gastroenterology at [facility] Abby Alfaro MD [facility] [address] [facility] David Lewis CRNA [facility] [address] [place] [address] Anesthesia Record Procedure Summary Procedure Name [...] and Airways Type Details Placement Removal Incision 05/15/22; 1408; Left; groin 05/15/22 1408 by Jaylene Branch RN Incision 05/15/22; 1526; Left, lateral, 05/15/22 1526 by lisa Herring; leg Jaylene Gomez RN Incision 05/15/22; 1527; Left, medial, 05/15/22 1527 by lisa Garner; leg Jaylene Gomez RN PIV 06/25/22; 1046; median cubital 06/25/22 1046 by vein (antecubital fossa), Mame Peterson RN left; znvt-zwn-ylfosh catheter system; 18 gauge; Present on admission PIV 06/25/22; 1046; great 06/25/22 1046 by saphenous vein (medial side of Mame Peterson RN leg), right; emrl-jry-utdcyd catheter system; Anatomical Landmarks; 18 gauge; Present on admission Incision 07/20/19; 1020; back; 07/20/19 1020 by 07/08/22 1715 by laparoscopic puncture; biopsy Fay Martínez RN Muller, Dierdre L site; 07/08/22 (LDA cleanup utility RA#[id number]); 1715 (LDA cleanup utility RA#[id number]) Incision 07/20/19; 1034; back; 07/20/19 1034 by 07/08/22 1715 by laparoscopic puncture; Fay Martínez RN M uller, Dierdre L vertbroplasty site; 07/08/22 (LDA cleanup utility RA#[id number]); 1715 (LDA cleanup utility RA#[id number]) Incision 10/25/20; 0912; thoracic 10/25/20 0912 by Belter , 07/08/22 1715 by spine; non-laparascopic DION Mays Dierdre L puncture; vertebroplasty site; 07/08/22 (LDA cleanup utility RA#[id number]); 1715 (LDA cleanup utility RA#[id number]) documented in this encounter Social History Tobacco [...] Procedure Summary Date: 06/25/22 Room / Location: [facility] ENDO 4 / [facility] ENDOSCOPY Anesthesia Start: 1101 Anesthesia Stop: 1202 Procedures: EGD, UPPER GI ENDOSCOPY (N/A Trunk) COLONOSCOPY; W CONTROL OF BLEEDING, ANY METHOD (N/A Trunk) SMALL BOWEL ENTEROSCOPY (N/A Trunk) Diagnosis: (melena +./-) Surgeons: Giovani Ponce MD Responsible Provider: Abby Alfaro MD Anesthesia Type: MAC ASA Status: 3 All Anesthesia Providers: Anesthesiologist: Abby Alfaro MD ANALOG DESIGN ENGINEER: David Gill CRNA Vitals Value Taken Time BP 102/85 06/25/22 1240 Temp Pulse Resp 16 06/25/22 1220 SpO2 95 % 06/25/22 1245 Pain Level 0 06/25/22 1220 Vitals shown include unvalidated device data. Patient Location: PACU/[facility] Level of Consciousness: Awake and Alert [...] Date Noted ??? 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 HFrEF (heart failure with reduced ejection [...] IR Biopsy Spine 07/20/2019 Abby Marshall MD [facility] INTERVENTIONL RAD ??? IR VERTEBROPLASTY LUMBAR MULTIPLE LEVELS 07/20/2019 IR Vertebroplasty Lumbar Multiple Levels 07/20/2019 Abby Marshall MD [facility] INTERVENTIONL RAD ??? IR VERTEBROPLASTY THORACIC SINGLE LEVEL 10/25/2020 IR Vertebroplasty Thoracic Single Level 10/25/2020 Matt Chisholm MD [facility] INTERVENTIONL RAD ??? PRO EMBLC/THRMBC FEMORAL POPLITEAL AORTO-ILIAC ARTERY Left 05/15/2022 EMBOLECTOMY OR THROMBECTOMY, FEMOROPOPLITEAL, AORTOILIAC ARTERY BY LEG INCISION (WRVU 19.48) performed by Fito Summers MD at [facility] MAIN OR ??? PRO UPPER GI ENDOSCOPY, CTRL BLEED 05/31/2022 EGD, W CONTROL OF BLEEDING, ANY METHOD performed by Giovani Ponce MD at [facility] ENDOSCOPY ??? PRO UPPER GI ENDOSCOPY, DIAGNOSTIC N/A 05/31/2022 EGD, UPPER GI ENDOSCOPY performed by Giovani Ponce MD at [facility] ENDOSCOPY Social History Tobacco Use [...] risks discussed with patient. Plan discussed with ANALOG DESIGN ENGINEER. Anesthesia Screening documented in this encounter Plan of Treatment Upcoming Encounters Date Type Specialty Care Team Description 08/08/2022 Office Visit Gastroenterology Negra Collins MD [facility] GASTROENTEROLOGY DEPT [place], [place] [address] (Wo rk) 09/05/2022 Appointment Cardiology Trinity Reid MD [facility] CARDIOLOGY [place], [place] [address] (Wo rk) 09/05/2022 Office Visit Cardiology Trinity Reid MD [facility] CARDIOLOGY [place], [place] [address] (Wo rk) documented [...] mg documented in this encounter Care Teams Health Management Consultant Relationship Specialty Start Date End Date Abby Das MD PCP - General 10/02/[address] [place] [address] [place] [phone] documented as of this encounter
--- OUTSIDE RECORDS SUMMARY | 2022-07-10 09:34 | XMS_ITS | Encounter Summary ---
:1940 Author Organization [facility] [place] [address] Care Team Providers Name Role Phone Bobby Das MD Primary Care Provider Encounter Details Date Type Department Care Team Description 06/25/2022 Surgery Gastroenterology at [facility] Giovani Ponce, EGD, UPPER GI [facility] Bobby [place] [address] [facility] [phone] [place], [place] [address] Social History Tobacco Use Types [...] the day after the procedure, use an mptn-gpe-krtvhsq spray to numb your throat. Sucking on [...] occurs, please contact your Doctor. Please call [phone] before 8pm Mon-Fri with problems, questions or concerns. If you call after 8pm or on weekends, call the Hospital at [phone] and ask to speak to the Crabbing Machine Operator education professor and the block bolter mule operator will contact that person for you. When should you call for help? Call [phone] anytime you think you may need emergency [...] any problems. Where can you learn more? [facility] View your After Visit Summary and more online at [email or web address] If you would like to [...] cost to you. Content Version: 12.2 ?? 1820-5847 [employer]. Care instructions adapted under license by [facility]. If you have questions about a medical condition or this instruction, always ask your healthcare professional. [employer] disclaims any warranty or liability for [...] occurs, please contact your Doctor. Please call [phone] before 8pm Mon-Fri with problems, questions or concerns. If you call after 8pm or on weekends, call the Hospital at [phone] and ask to speak to the Crabbing Machine Operator education professor and the block bolter mule operator will contact that person for you. When should you call for help? Call [phone] anytime you think you may need emergency [...] any problems. Where can you learn more? [facility] View your After Visit Summary and more online at [email or web address] If you would like to [...] cost to you. Content Version: 12.2 ?? 8311-2614 [employer]. Care instructions adapted under license by [facility]. If you have questions about a medical condition or this instruction, always ask your healthcare professional. [employer] disclaims any warranty or liability for your [...] 21 (FLONASE) 50 mcg/actuation Nare route daily [place], Suspension as needed. fluorouraciL (EFUDEX) 5 % [...] ischemia I99.8 ??? Coronary artery disease involving hopi coronary artery of hopi heart without angina [id number] ??? HFrEF (heart failure with reduced ejection [...] Visit Gastroenterology Negra Collins MD [facility] [place]STROENTEROLOGY [place], [place] [address] (Wo rk) 09/05/2022 Appointment Cardiology Trinity Reid MD [facility] CARDIOLOGY [place], [place] [address] (Wo rk) 09/05/2022 Office Visit Cardiology Trinity Reid MD [facility] CARDIOLOGY [place], [place] [address] (Wo rk) documented as of this [...] Component Value Ref Test Analysis Performed At [facility] Range Method Time Signature UPPER GI [facility] ENDOSCOPY Endoscopy Procedure Date: 06/25/2022 10:33 AM ? Patient Name: Koko Zamora ? Date of : 1940 ? Age: 81 ? Order #: [id number] ? Instrument Name: [id number]- [id number] ? Procedure: ? Upper GI endoscopy Indications: ? Recent gastrointestinal bleeding Providers: ? Giovani Ponce, Isi puente, ? Brissa Vee RN, Darrell ? Confalone Referring MD: ?[facility] ? Propofol per Anesthesia Complications: ? [...] Component Value Ref Test Analysis Performed At [facility] Method Time Signature COLONOSCOPY [facility] Endoscopy Procedure Date: 06/25/2022 10:33 AM ? Patient Name: Koko Zamora ? Date of : 1940 ? Age: 81 ? Order #: [id number] ? Instrument Name: [id number]- [id number] ? Procedure: ? Colonoscopy Indications: ? Gastrointestinal bleeding Providers: ? Isi Munoz, ? Brissa Vee, DION, Juvenal ? Confalone Referring MD: ?aSm Roberts Medicines: ? Propofol per Anesthesia Complications: [...] Procedure Code(s): ? --- Professional --- ? 21432, Colonoscopy, flexib le; with ? control of [...] of sigmoid ? colon CPT copyright 2021 [employer]. All rights reserved. The codes documented in this report are preliminary and upon end finder forming department review may be revised to meet current [...] Procedure) documented in this encounter Care Teams Ostrich Farm Worker Relationship Specialty Start Date End Date Bobby Das MD PCP - General 10/02/[address] [place] [address] [place] [id number] documented as of this encounter
--- OUTSIDE RECORDS SUMMARY | 2022-07-10 09:34 | XMS_ITS | Encounter Summary ---
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 [address] [address] [place] [address] Fax: Referral ID Status Reason Start Date Expiration Visits Visits Date Requested Authorized [id number] Authorized Consult, 06/17/2022 06/17/2023 1 1 Test & Treat Encounter Details Date Type Department Care Team Description 06/17/2022 Orders Only Dermatology at [facility] Basal cell carcinoma Nicol CARCAMO (BCC) of right [address] [place] [address] DERMATOLOGY [place], [place] [address] Social History Tobacco Use Types [...] Visit Gastroenterology Negra Collins MD [facility] GASTROENTEROLOGY DEPT [place], [place] [address] (Wo rk) 09/05/2022 Appointment Cardiology Trinity Reid MD [facility] CARDIOLOGY [place], [place] [address] (Wo rk) 09/05/2022 Office Visit Cardiology Trinity Reid MD [facility] CARDIOLOGY [place], [place] [address] (Wo rk) Scheduled Referrals Name Type Priority Associated Order Schedule Diagnoses Referral to Outpatient Referral Routine Basal cell Ordered: Dermatology carcinoma (BCC) of 2 right forehead documented as of this encounter Visit Diagnoses Diagnosis Basal cell carcinoma (BCC) of right fore head documented in this encounter Care Teams Oiling Machine Operator Relationship Specialty Start Date End Date Bobby Das MD PCP - General 10/02/[address] [place] [address] [place] [address] documented as of this encounter
--- OUTSIDE RECORDS SUMMARY | 2022-07-10 09:34 | XMS_ITS | Clinical Summary ---
:1940 Author Organization [place] [address] Care Team Providers Name Role Phone Bobby [...] 04/12/2021 Active (FLONASE) 50 mcg/actuation Each Nare [place], Suspension route daily as needed. 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 Permanent atrial fibrillation 06/13/2022 Last Assessment [...] consideration of AV no de ablation and RUBBER ROLLER GRINDER OPERATOR-D Limb ischemia 05/15/2022 History of basal cell carcinoma 05/31/2014 Basal cell carcinoma 03/29/2014 Verruca vulgaris 03/29/2014 AK (actinic keratosis) 03/29/2014 GIB (gastrointestinal bleeding) 06/28/2011 Overview: Secondary to 3-4 ASA/day, required admis lynette and blood transfusion MVP (mitral valve prolapse) s/p repair 06/28/2011 Overview: Surgery done at [facility] in 2 001 Hypertriglyceridemia 06/28/2011 Adhesive [...] Hicks MD Coronary priscilla ry disease involving kaw coronary artery of kaw heart without angina pectoris 06/19/2022 Telephone Cardiology Kourtney Jimenez RN 06/17/2022 Orders Only Dermatology Loretta Cohen Basal cell c carlos Paez MD (BCC) of right forehead 06/13/2022 Office Visit Cardiology Jeanette, Coronary artery disease involving kaw coronary artery of kaw heart without angina pectoris; Alan Hicks MD [...] Gastroenterology Elmer Johnson MD Drost, Alexander J, FACILITY SUPERVISOR 05/31/2022 Surgery Gastroenterology Giovani Ponce UPPE R GI M, MD ENDOSCOPY 05/31/2022 - Hospital Encounter Dominique Hinds GIB (g astrointestinal 06/02/2022 MD bleeding) (Primary Dx) Mahendra Victor MD Friedman, Harley P, MD Ratanamaneechat, Suphagaphan, MD 05/31/2022 Office Visit Vascular Surgery DavinaStephanie bellamyy Dizzy; B, HOSPITAL CHIEF EXECUTIVE OFFICER Atrial fibrilla tion, unspecified type; SOB (shortness of breath) 05/28/2022 Telephone Vascular Surgery Dominique Bloivar RN 05/24/2022 Telephone Cardiology Kourtney Jimenez RN 05/21/2022 Hospital Encounter Cardiology Paroxysma l atrial fibrillation 05/20/2022 Surgery Cardiology Abundio Servin MD CATHETERIZATION 05/15/2022 Anesthesia Event Surgery Cari Hernandez MD Patel, Shreena K, FACILITY SUPERVISOR 05/15/2022 Surgery Surgery Fito Summers EMBOLECTOMY O [...] 08/08/2022 Office Visit Gastroenterology Negra Collins MD [facility] GASTROENTEROLOGY DEPT [place], [place] [address] (Wo rk) 09/05/2022 Appointment Cardiology Trinity Reid MD [facility] CARDIOLOGY [place], [place] [address] (Wo rk) 09/05/2022 Office Visit Cardiology Trinity Reid MD [facility] CARDI[facility] [place], [place] [address] (Wo rk) Health Maintenance Due [...] Hospital Range Method Time Signature UPPER GI [facility] ENDOSCOPY Endoscopy Procedure Date: 06/25/2022 10:33 AM ? Patient Name: Koko Bah ? Date of : 1940 ? Age: 81 ? Order #: [id number] ? Instrument Name: [id number]- [id number] ? Procedure: ? Upper GI endoscopy Indications: [...] Component Value Ref Test Analysis Performed At [facility] Method Time Signature COLONOSCOPY [facility] Endoscopy Procedure Date: 06/25/2022 10:33 AM ? Patient Name: Koko Bah ? Date of : 1940 ? Age: 81 ? Order #: [id number] ? Instrument Name: EC-760P- [id number] ? Procedure: ? Colonoscopy Indications: ? Gastrointestinal [...] Procedure Code(s): ? --- Professional --- ? 96503, Colonoscopy, flexib le; with ? control of [...] of sigmoid ? colon CPT copyright 2020 [employer]. All rights reserved. The codes documented in this report are preliminary and upon auto body worker review may be revised to meet current [...] [facility] Range Method Time Signature VB Text Department: Vascular Surgery Lab VASCUBASE Report Patient: [id number] (KOKO BAH) CPT: 37374 Referring Physician: FITO SUMMERS ?? Phone: Indications: s/p L EXECUTIVE DIRECTOR OF NURSING endart. Diabetes mellitus: no Findings: Right ?Pressure [...] Summers MD VASCULAR ORDERABLES Performing Organization Address City/[facility]/ZIP Code Phon e Number VASCUBASE Specimen to Pathology (06/10/2022 1:20 PM EDT) Specimen Anatomical Collection Method Collection Time Receive d Time (Source) Location / / Volume Laterality AP Specimen 06/10/2022 1:20 PM 1:[address] ED[address] [facility] - 06/10/2022 1:20 PM EDT Specimen requisition ordered. ??Separate Pathology report to follow Loretta Cohen MD PATHOLOGY/CYTOLOGY ORDERABLE S Performing Organization Address [facility] [place] [address] [facility] [address] Surgical Pathology Report (06/10/2022 11:43 AM EDT) Component Value Ref Test Analysis Performed At [facility] Range Method Time Signature Surgical [id number] ? Location: [facility] Report The signing pathologist has (i) examined the relevant preparation(s) for the [facility] specimen(s) and (ii) rendered or confirmed the diagnosis(es) . HOSPITAL LABORATORY . ?Surgic al Pathology DIAGNOSIS Right lateral eyebrow, skin shave biopsy: - ??Basal cell carcinoma, no dular pattern, transected at the peripheral and deep specimen edges Electronically signed by: ?Delroy CARCAMO, PhD, Ian Verified: ??06/12/2022 14:33 ??Dermatopathologist Performed at: ??-[facility] Dept. of Pathology, [place], [place] SPECIMEN(S) SUBMITTED A - right lateral [...] Organization Address City/State/ZIP Code Phon e Number [place] [id number] (ABNORMAL) Hemogram (06/02/2022 8:20 AM EDT)Only the most recent of14 results within the time period is included. Analysis Performed At Patho logist Time Signature WBC 7.2 4.0 - 9.5 [facility] x10(3)/[facility] LABORATORY RBC 2.74 (L) 4.58 - [facility] 5.54 [facility] x10(6)/[facility] LABORATORY Hemoglobin 8.7 (L) 13.7 - [place] 16.5 g/dL [facility] LABORATORY Hematocrit 25.7 (L) 40.5 - [facility] 48.5 % [facility] LABORATORY MCV 93.8 (H) 82.9 - [place] 93.1 [facility] LABORATORY MCH 31.8 27.5 - [employer]YE 32.1 pg [facility] LABORATORY MCHC 33.9 32.0 - [place] 35.7 g/dL [facility] LABORATORY Platelets 260 145 - 357 [place] [employer] x10(3)/[facility] LABORATORY RDWSD 51.0 (H) 36.0 - [place] 45.0 [facility] LABORATORY RDWCV 14.9 (H) 11.4 - [place] 13.8 % [facility] LABORATORY MPV 10.0 7.6 - 12.9 [facility] nRBC % Auto 0.0 % [facility] nRBC Abs Auto 0.000 0.000 - [facility] 0.000 [facility] x10(3)[facility] LABORATORY Specimen Anatomical Collection Method Collection Time Receive d Time (Source) Location / / Volume Laterality Blood 06/02/2022 8:20 AM 8:25 EDT AM EDT Resulting Agency Comment Spec In Lab Kurt Ames MD HEMATOLOGY ORDERABLES Performing Organization Address City/State/[place] [address] (ABNORMAL) Differential, Automated (06/02/2022 8:20 AM EDT)Only the most recent of14 resultswithin the time period is included. P athologist Signature Neutrophils % 61.3 % [facility] Neutr Abs (ANC) 4.44 1.70 - [facility] 6.10 [facility] x10(3)[facility] LABORATORY Lymphocytes % 25.2 % [facility] Lymphocytes Abs 1.8 0.9 - 3.2 [facility] x10(3)[facility] LABORATORY Monocytes % 10.0 % [facility] Monocyte Abs 0.7 0.3 - 0.9 [facility] x10(3)[facility] LABORATORY Eosinophils % 2.1 % [facility] Eosinophils Abs 0.2 0.0 - 0.4 [facility] x10(3)[facility] LABORATORY Basophils % 0.7 % [facility] Basophils Abs 0.0 0.0 - 0.1 [facility] x10(3)[facility] LABORATORY Immature Gran % 0.70 % [facility] Comment: Immature granulocytes(IG's)percentage an d absolute count will include metamyelocytes, myelocytes, and promyelo cytes. Blood smears from CBCs yielding IG's will be scanned manually for concor dance. If this scan disagrees with the automated IG or if promyelocytes are not ed, a manual differential will be performed. Rain Gran Abs 0.05 (H) 0.00 - 0.04 x10(3)/mcL [facility] Specimen Anatomical Collection Method Collection Time Receive d Time (Source) Location / / Volume Laterality Blood 06/02/2022 8:20 AM 2 8:25 EDT AM EDT Resulting Agency Comment Spec In Lab Kurt Ames MD HEMATOLOGY ORDERABLES Performing Organization Address City/State/ZIP Code Phon e Number [address] Heparin (unfractionated) Level (06/02/2022 6:30 AM EDT)Only the most recent of11 resultswithin the time period is included. athologist Signature Heparin UFH 0.39 IU/mL [facility] LABORATORY Comment: Heparin (anti-Xa) levels should be [...] Address City/State/ZIP Code Phon e Number [address] Magnesium (06/02/2022 12:30 AM EDT)Only the most recent of5 resultswithin the time period is included. athologist Signature Magnesium 0.83 0.69 - 1.07 [facility] mmol/L [facility] LABORATORY Specimen Anatomical Collection Method Collection Time Receive d Time (Source) Location / / Volume Laterality Blood 06/02/2022 12:30 06/02/2022 AM EDT 12:40 AM EDT Resulting Agency Comment Spec In Lab Mahendra Victor MD CHEMISTRY ORDERABLES Performing Organization Address City/State/[place] [address] (ABNORMAL) Basic Metabolic Panel (non-fasting) (06/02/2022 12:30 AM EDT)Only the most recent of6 resultswithin the time period is included. athologist Signature Glucose Lvl 151 65 - 199 [facility] mg/dL [facility] LABOR[facility]ORY Comment: Diabetes: >=200 mg/dL plus symp toms BUN 12 10 - 20 mg/dL [facility] LAB[facility]ORY Creatinine 0.71 (L) 0.80 - 1.50 mg/dL [facility] LABORATORY Sodium 142 135 - 145 mmol/L [facility]ORY Potassium 3.8 3.5 - 5.0 mmol/L [facility] Comment: Please note: ??Patients [...] 15 mmol/L [facility] Calcium 8.1 (L) 8.5 - 10.5 mg/dL [facility] LAB[facility]ORY Estimated GFR 93 >=60 mL/min/1.73 m?? [facility] [...] Organization Address City/State/[place] [address] SCAN DOC: TELEMETRY STRIPS (06/01/2022 8:37 PM EDT)Only the most recent of8 resultswithin the time period is included. Narrative This result has an attachment that is no t available. Unknown MEDIA MGR SCAN EXT ORDR/RSLT (ABNORMAL) Urinalysis with reflex Culture (06/01/2022 4:00 AM EDT)Only the most recent of2 resultswithin the time period is included. [facility] gist Method Time Signature Glucose UA 500 Negative [facility] (Critical) mg/dL [facility] LABOR[facility]ORY Comment: Urinalysis result NOT critical without a combination of Glucose greater than or equal to 500 mg/dL AND Ketones greate r than or equal to 80 mg/dL Protein UA Negative Negative mg/dL [facility] Bilirubin UA Negative Negative mg/dL [...] HOSPITAL LABORATORY Blood UA Negative Negative mg/dL [facility] Ketones UA Negative Negative mg/dL [facility] Nitrite UA Negative Negative [facility] Leukocytes UA Negative Negative mcL [facility] LABORATORY Appearance UA Clear Clear [facility] LABORATORY Spec [place] UA >=1.030 (A) 1.005 - 1.030 [facility] LABORATORY Color UA Yellow Yellow [facility] LABORATORY Culture Reflexed No [facility] LAB[facility]ORY Specimen Anatomical Collection Method Collection Time Receive d Time (Source) Location / / Volume Laterality Clean Catch 06/01/2022 4:00 AM 4:26 Urine EDT AM EDT Resulting Agency Comment Spec In Lab Mahendra Victor MD URINE ORDERABLES Performing Organization Address City/State/[place] [address] Transfuse RBC (05/31/2022 7:36 PM EDT) Dominique Hinds MD NURSING TREATMENT ORDERABLES - BLOOD ADMIN UPPER GI ENDOSCOPY (05/31/2022 3:37 PM EDT) Component Value Ref Test Analysis Performed At [facility] Range Method Time Signature UPPER GI [facility] ENDOSCOPY Endoscopy Procedure Date: 05/31/2022 3:37 PM ? Patient Name: Koko Bah ? Date of : 1940 ? Age: 81 ? Order #: [id number] ? Instrument Name: [id number] ? Procedure: ? Upper GI endoscopy Indications: [...] w as ? introduced through the [facility], and ? advanced to the fourth par [...] Procedure Code(s): ? --- Professional --- ? 37950, Esophagogastroduode noscopy, ? flexible, transoral; with control [...] stomach ? and duodenum CPT copyright 2020 [employer]. All rights reserved. The codes documented in this report are preliminary and upon auto body worker review may be revised to meet current [...] who have questions please contact the health careers adviser that requested your imaging first. ? Narrative 05/31/2022 2:39 PM EDT EXAMINATION: CT ABDOMEN AND PELVIS [facility] CONTRAST (GI BLEED) CLINICAL HISTORY: Significant Hb drop. U nknown source. has had a [facility] with stent placed and revascularization of [...] enlarged lymph nodes. Vasculature: Patent common iliac, research and development specialist al iliac, and common femoral arteries [...] the original. EXAMINATION: CT ABDOMEN AND PELVIS [facility] (GI BLEED) CLINICAL HISTORY: Significant Hb [...] enlarged lymph nodes. Vasculature: Patent common iliac, research and development specialist al iliac, and common femoral arteries [...] ho have questions please contact the health careers adviser that requested your imaging first. Dominique Hinds MD IMG CT ORDERABLES Type and Screen Validity (05/31/2022 1:43 PM EDT)Only the most recent of2 resultswithin the time period is included. [facility] Method Time Signature T&S only valid [facility] LABORATORY Comment: This Type and Screen result is only valid at the [facility] Specimen Anatomical Collection Method Collection Time Receive d Time (Source) Location / / Volume Laterality Blood 05/31/2022 1:43 PM 2 1:57 EDT PM EDT Resulting Agency Comment Spec In Lab Dominique Hinds MD BLOOD BANK ORDERABLES Performing Organization Address City/State/[place] [address] ABORH Recheck Status (05/31/2022 1:43 PM EDT)Only the most recent of2 results within the time period is included. [facility] Method Time Signature ABORH Type Completed [facility] LABORATORY Specimen Anatomical Collection Method Collection Time Receive d Time (Source) Location / / Volume Laterality Blood 05/31/2022 1:43 PM 2 1:57 EDT PM EDT Resulting Agency Comment Spec In Lab Dominique Hinds MD BLOOD BANK ORDERABLES Performing Organization Address City/[facility]/[place] [address] ABO/Rh Typing (05/31/2022 1:43 PM EDT)Only the most recent of2 resultswithin the time period is included. P athologist Signature ABORh Type O Pos [facility]ORY Specimen Anatomical Collection Method Collection Time Receive d Time (Source) Location / / Volume Laterality Blood 05/31/2022 1:43 PM 2 1:57 EDT PM EDT Resulting Agency Comment Spec In Lab Dominique Hinds MD BLOOD BANK ORDERABLES Performing Organization Address [facility]/[place] [address] Antibody screen (05/31/2022 1:43 PM EDT)Only the most recent of2 resultswithin the time period is included. Patholo gist Method Time Signature Ab Screen Negative [facility] LABORATORY Expires at 06/03/2022 [facility] 1407 on: [facility] LABORATORY Specimen Anatomical Collection Method Collection Time Receive d Time (Source) Location / / Volume Laterality Blood 05/31/2022 1:43 PM 2 1:57 EDT PM EDT Resulting Agency Comment Spec In Lab Dominique Hinds MD BLOOD BANK ORDERABLES Performing Organization Address City/[facility]/ZIP Code Phon e Number [address] Prepare RBC (05/31/2022 1:35 PM EDT)Only the most recent of2 resultswithin the time period is included. P athologist Signature Dispensed? Yes [facility] Specimen Anatomical Collection Method Collection Time Receive d Time (Source) Location / / Volume Laterality Blood 05/31/2022 1:35 PM 2 1:30 EDT PM EDT Dominique Hinds MD BLOOD BANK ORDERABLES Performing Organization Address City/State/[place] [address] (ABNORMAL) BLOOD GAS 2 VENOUS (05/31/2022 11:24 AM EDT) P athologist Signature pH [place] 7.38 7.32 - [facility] 7.42 [facility] LABORATORY pCO2 [place] 40 (L) 41 - 51 [facility] LABORATORY pO2 [place] 18 (L) 25 - 40 [facility] LABORATORY HCO3 [place] 23.3 mmol/L [facility] BE Marco Antonio -1.8 mmol/L [facility] Hgb Blood Gas 7.0 (L) 13.7 - [facility] 16.5 g/dL [facility] LABORATORY O2HB [place] 24.3 % [facility] COHB [place] 1.4 % [facility] Comment: Nonsmokers: 0.5-1.5% COHB Smokers: Variable, but usually less than 10% Toxic: 20-30% COHB Lethal: Greater than 60% COHB METHB [place] 1.7 (H) <=1.5 % [facility] LABORATORY Na Whole Blood 137 135 - 145 mmol/L [facility] LABORATORY K Whole Blood 3.9 3.5 - 5.0 mmol/L [facility] LABORATORY Comment: Please note: Patients with WBC >100,000 may have falsely elevated Potassium levels. Contact the Clinical Chemistry L aboratory if there are any questions. ICa Whole Blood 1.19 1.15 - 1.33 mmol/L [facility] [...] Hinds MD CHEMISTRY ORDERABLES Performing Organization Address City/[facility]/ZIP Code Phon e Number [address] TSH [place] (05/31/2022 11:20 AM EDT) P athologist Signature TSH 1.67 0.27 - 4.20 [facility] mcIU/mL [facility] LABORATORY Comment: Reference Interval (mcIU/mL): Females: ??First Trimester: 0.23-3.88 ??Second Trimester: 0.22-3.90 ??Third Trimester: 0.44-4.66 Specimen Anatomical Collection Method Collection Time Receive d Time (Source) Location / / Volume Laterality Blood 05/31/2022 11:20 05/31/2022 AM EDT 11:28 AM EDT Resulting Agency Comment Spec In Lab Dominique Hinds MD CHEMISTRY ORDERABLES Performing Organization Address City/[facility]/ZIP Code Phon e Number [address] XR Chest PA & [...] who have questions please contact the health careers adviser that requested your imaging first. ? Narrative [...] ho have questions please contact the health careers adviser that requested your imaging first. Dominique Hinds MD IMG DX ORDERABLES Blue Tube HOLD (05/31/2022 10:50 AM EDT) athologist Signature Blue Hold Sample in [facility] lab. [facility] LABORATORY Specimen Anatomical Collection Method Collection Time Receive d Time (Source) Location / / Volume Laterality Blood Venous Draw / 05/31/2022 10:50 05/31/2022 Unknown AM EDT 11:05 AM EDT Brittany Ramirez MD HEMATOLOGY ORDERABLES Performing Organization Address City/State/[place] [address] Troponin (05/31/2022 10:50 AM EDT) athologist Signature Troponin-T <0.01 0.00 - 0.00 [facility] ng/mL [facility] LABORATORY Comment: The 99th percentile for Troponin T is le ss than 0.01 ng/mL, any detectable cTnT concentration using this assay should be considered elevated. According to the third universal definit ion of myocardial infarction the following criteria with a clinical prese ntation consistent with acute myocardial ischemia meets the diagnosis for a myocardial infarction (CA). Detection of a rise and/or fall of [...] additional sample may be indicated. Reference: Third [place] Definition of Myocardial Infarction. Journal of the [employer] 2012;60:1581-98 Specimen Anatomical Collection Method Collection Time Receive d Time (Source) Location / / Volume Laterality Blood 05/31/2022 10:50 05/31/2022 AM EDT 11:03 AM EDT Resulting Agency Comment Spec In Lab Dominique Hinds MD CHEMISTRY ORDERABLES Performing Organization Address City/State/ZIP Code Phon e Number [address] Phosphorus (05/31/2022 10:50 AM EDT)Only the most recent of2 resultswithin the time period is included. P athologist Signature Phosphorus 3.2 2.5 - 4.5 [place] mg/dL [facility] LABORATORY Specimen Anatomical Collection Method Collection Time Receive d Time (Source) Location / / Volume Laterality Blood 05/31/2022 10:50 05/31/2022 AM EDT 11:03 AM EDT Resulting Agency Comment Spec In Lab Dominique Hinds MD CHEMISTRY ORDERABLES Performing Organization Address City/[facility]/ZIP Code Phon e Number [address] (ABNORMAL) pro-Brain Natriuretic Peptide (05/31/2022 10:50 AM EDT) P athologist Signature ProBNP 1,077 (H) <=449 [place]AY[place] pg/mL [facility] LABORATORY Specimen Anatomical Collection Method Collection Time Receive d Time (Source) Location / / Volume Laterality Blood 05/31/2022 10:50 05/31/2022 AM EDT 11:03 AM EDT Resulting Agency Comment Spec In Lab Dominique Hinds MD CHEMISTRY ORDERABLES Performing Organization Address City/[facility]/ZIP Code Phon e Number [address] Lipase (05/31/2022 10:50 AM EDT) P athologist Signature Lipase 41 0 - 60 [place] unit/L [facility] LABORATORY Specimen Anatomical Collection Method Collection Time Receive d Time (Source) Location / / Volume Laterality Blood Venous Draw / 05/31/2022 10:50 05/31/2022 Unknown AM EDT 11:11 AM EDT Resulting Agency Comment Spec In Lab Zain Champion MD CHEMISTRY ORDERABLES Performing Organization Address City/[facility]/[place] [address] (ABNORMAL) Hepatic Function Panel (05/31/2022 10:50 AM EDT) Analysis Performed At Patho logist Time Signature Total Protein 6.4 6.1 - 8.0 [place] g/dL [facility]ORY Albumin 4.1 3.2 - 5.2 [place] g/dL [facility] AST 24 0 - 39 [facility] unit/L [facility] ALT 44 0 - 55 [facility] unit/L [facility] LAB[facility]ORY Alk Phos 63 40 - 130 [facility] unit/L [facility] Total <0.2 (L) 0.2 - 1.3 [place] Bilirubin mg/dL [facility] LAB[facility] Bili, Direct 0.1 0.0 - 0.3 [facility] mg/dL [facility] LAB[facility] Specimen Anatomical Collection Method Collection Time Receive d Time (Source) Location / / Volume Laterality Blood Venous Draw / 05/31/2022 10:50 05/31/2022 Unknown AM EDT 11:11 AM EDT Resulting Agency Comment Spec In Lab Zain Champion MD CHEMISTRY ORDERABLES Performing Organization Address City/[facility]/[place] [address] EKG 12 Lead (05/31/2022 10:11 AM EDT)Only the most recent of3 resultswithin the time period is included. Component Value Ref Range Test Analysis Performed Pathologis t Method Time At Signature Ventricular rate 106 BPM MUSE SYSTEM QRS Duration 122 ms MUSE SYSTEM Q-T Interval 368 ms MUSE SYSTEM QTC Calculated 488 ms MUSE SYSTEM (Bezet) Calculated R Beals -43 degrees MUSE SYSTEM Calculated T Beals 109 degrees MUSE SYSTEM INTERPRETATION Atrial fibrillation [...] erpretation Confirmed by fellow MD Mike, [place] ([id number]) on 022 8:36:21 PM Confirmed by MD [...] SYSTEM - 05/20/2022 7:09 PM ED T ?[facility] ? Cardiac Cathete rization/Intervention Report ? Patient Name: Koko Bah. ? Procedure Date: 05/20/2022 ? A #: [id number] ? Primary Physician: Malathi, Abundio S ? Case #: [id number] ? File Name: [id number] ? Catheterization Order Number: [id number] ? [facility] ? Final Report [place], [place] ? Patient Name: ? Koko Sullivan. Klarissa uson ? ID#: ?[id number] ? : ?1940 ? Procedure Date: ? [...] procedure was Urgent. The indication for ?the clinical laboratory director visit is cardiomyo nita. Chest pain symptom [...] ?3.5 guiding catheter and a 3.5 Fr [facility] [address] ??20 Mhz. ??Imaging ?was successful. ??Image [...] A premounted 2. 75 x 30 mm Etters [place] (AMPARO) was deployed ? with a maximum [...] require ?modification of this regimen. C onsult [facility] Interventional Cardiology for ?questions. ?The 1 [...] 123 65 - 199 ILDA FAYE mg/dL [facility] Comment: Supplemental ranges: <140 mg/dL before meals <180 mg/dL all other times of the day Specimen Anatomical Collection Method Collection Time Receive d Time (Source) Location / / Volume Laterality Blood 05/20/2022 5:42 PM 2 5:42 EDT PM EDT Fito Summers MD POINT OF CARE TEST ORDERABLE S Performing Organization Address City/State/[place] [address] (ABNORMAL) BMP w/fasting Glucose (05/20/2022 10:50 AM EDT) P athologist Signature Glucose 152 (H) 65 - 99 ILDA FAYE Fasting mg/dL [facility] Comment: ?Fasting* Glucose Interpretive C [...] of Diabetes Mellitus, Position Statement from the [employer]. ??Diabete s Care, Volume 33, Supplement 1, Nov 2009 BUN 11 10 - 20 mg/dL [facility] Creatinine 0.63 (L) 0.80 - 1.50 mg/dL [facility]OR[facility]ORY Sodium 137 135 - 145 mmol/L [facility] Potassium 3.6 3.5 - 5.0 mmol/L [facility] Comment: Please note: ??Patients [...] LABORATORY Calcium 8.7 8.5 - 10.5 mg/dL [facility] Estimated GFR 97 >=60 [...] Organization Address City/State/[place] [address] TSH (05/18/2022 8:00 PM EDT) P athologist Signature TSH 2.27 0.27 - 4.20 [facility] mcIU/mL [facility] Comment: Reference Interval (mcIU/mL): Females: ??First Trimester: 0.23-3.88 ??Second Trimester: 0.22-3.90 ??Third Trimester: 0.44-4.66 Specimen Anatomical Collection Method Collection Time Receive d Time (Source) Location / / Volume Laterality Blood 05/18/2022 8:00 PM 8:06 EDT PM EDT Resulting Agency Comment Spec In Lab Fito Summers MD CHEMISTRY ORDERABLES Performing Organization Address City/[facility]/ZIP Code Phon e Number [address] (ABNORMAL) Urinalysis Microscopic Exam [...] Patiño MD URINE ORDERABLES Performing Organization Address City/[facility]/ZIP Code Phon e Number [address] XR Chest One View [...] who have questions please contact the health careers adviser that requested your imaging first. ? Electronically signed by: Tiffanie George MD , [facility] ([phone]), at 05/16/2022 9:27 PM Narrative 05/16/2022 9:27 [...] ho have questions please contact the health careers adviser that requested your imaging first. Electronically signed by: Tiffanie George MD , [facility] ([phone]), at 05/16/2022 9:27 PM Fito Summers MD IMG DX ORDERABLES ECHOCARDIOGRAM COMPLETE W CONTRAST (05/16/2022 12:49 PM EDT) P athologist Signature EF 28 [facility] Specimen (Source) Anatomical Collection Method Collection Time Re ceived Time Location / / Volume Laterality 05/16/2022 11:22 AM EDT N[facility]ative [facility] 05/16/2022 1:54 PM EDT ?[facility] ?[address] ? [place] [address] ?Voice: ?Fax: ? Echocardiogram Report Name: KOKO BAH ?Study Date: 05/16/2022 11:22 AM ? Patient Location: 3WST 0303 B : 1940 ? Height: 67.5 in ? Account: [id number] Age: 81 yrs ? Weight: 176 lb Gender: Male ?BSA: 1.9 m2 Ordering Physician: FITO SUMMERS Referring Physician: MALI FLORIAN Performed By: Jolene Bernard RDCS Exam Location: [facility]. Interpretation Summary Left ventricle is [...] and LV systolic dysfunction are new. Procedure Complete-[id number]. Image enhancement Optiso n was used for [...] note might be different from the original. [facility] [address] [place] [address] Voice: Fax: Echocardiogram Report Name: KOKO BAH Study Date: 05/2022 11:22 AM Patient Location: [address] [place] [address] : 1940 Height: 67.5 in Account: [id number] Age: 81 yrs Weight: 176 lb Gender: Male BSA: 1.9 m2 Ordering Physician: FITO SUMMERS Referring Physician: MALI FLORIAN Performed By: Jolene Bernard RDCS Exam Location: [facility]. Interpretation Summary Left ventricle is [...] and LV systolic dysfunction are new. Procedure Complete-[id number]. Image enhancement Optiso n was used for [...] Signature pH Art 7.33 (L) 7.35 - [facility] 7.45 [facility] LABORATORY pCO2 Art 41 35 - 45 [facility] LABORATORY pO2 Art 131 (H) 85 - 104 [facility] LABORATORY HCO3 Art 21.1 20.0 - [facility] 26.0 [facility] mmol/L [facility] LABORATORY BE Art -4.8 (L) -3.0 - 3.0 [facility] mmol/L [facility] Hgb Blood Gas 13.4 (L) 13.7 - [facility] 16.5 g/dL [facility] O2HB Art 96.9 94.0 - [facility] 97.0 % [facility] COHB Art 1.4 % [facility] [...] Lactate WB 2.0 0.5 - 2.2 mmol/L [facility] LABORATORY Specimen Anatomical Collection Method Collection Time Receive d Time (Source) Location / / Volume Laterality Blood 05/15/2022 3:33 PM 3:[address] Jamel Torre MD CHEMISTRY ORDERABLES Performing Organization Address City/State/[place] [address] (ABNORMAL) APTT (05/15/2022 12:30 [...] Organization Address City/State/ZIP Code Phon e Number [place] [phone] (ABNORMAL) Prothrombin Time (05/15/2022 12:30 PM EDT) athologist Signature PT 12.9 (H) 9.4 - 12.5 [facility] LABORATORY INR 1.[facility] [...] Organization Address City/State/ZIP Code Phon e Number [place] [phone] Drive Gold Tube HOLD (05/15/2022 12:20 PM EDT) athologist Signature Gold Hold Sample in [facility] LABORATORY Specimen Anatomical Collection Method Collection Time Receive d Time (Source) Location / / Volume Laterality Blood No Charge / 05/15/2022 12:20 05/15/2022 Unknown PM EDT 12:20 PM EDT Lc TRIPP CHEMISTRY ORDERABLES Performing Organization Address City/State/[place] [address] [facility] [address] Drive CK (05/15/2022 12:00 PM EDT) P athologist Signature CK, Total 87 0 - 200 [facility] unit/L [facility] Specimen Anatomical Collection Method Collection Time Receive d Time (Source) Location / / Volume Laterality Blood Venous Draw / 05/15/2022 12:00 05/15/2022 Unknown PM EDT 12:19 PM EDT Resulting Agency Comment Spec In Lab Fito Summers MD CHEMISTRY ORDERABLES Performing Organization Address City/State/[place] [address] [facility] LAB[address] Drive Film Library- Storage Only CT Abdomen (05/15/2022 9:32 AM EDT) Specimen (Source) Anatomical Location Collection Method / Collectio n Time Received Time / Laterality Volume Narrative [facility] - 05/15/2022 9:32 AM EDT This exam is auto-finalizing. It's purpo se is for storage only. Matt Branham MD [facility] FILM LIBRARY ORDERABLES Performing Organization Address [facility]/ZIP [facility] Phon e Number [place], [place] Film Library- Storage Only DX Chest (05/15/2022 9:31 AM EDT) Specimen (Source) Anatomical Location Collection Method / Collectio n Time Received Time / Laterality Volume Narrative RAD - 05/15/2022 9:31 AM EDT This exam is auto-finalizing. It's purpo se is for storage only. Matt Branham MD [facility] FILM LIBRARY ORDERABLES Performing Organization Address City/[facility]/ZIP [facility] Phon e Number [place], [place] from Last 3 Months Insurance Payer Benefit Plan / Subscriber ID Effective Phone Address T ype Group Dates MEDICARE MEDICARE PART A [id number] 2007-Pres [id number] [facility] [place] [address] [facility] [id number] 2007-Pres [phone] [address] [facility] ent [address] [facility] [place] [address] Advance Directives Latest Code Status on File [...] capacity to make decision: Yes Care Teams Geophysics Scientist Relationship Specialty Start Date End Date Bobby Das MD PCP - General 10/02/[address] [place] [address] [place] [phone]
--- OUTSIDE RECORDS SUMMARY | 2022-07-10 09:34 | XMS_ITS | Encounter Summary ---
:1940 Author Organization [facility] [place] [address] Care Team Providers Name Role Phone Bobby Das MD Primary Care Provider Reason for Visit Reason Comments Skin Lesion Consultation (Routine) - Closed Specialty Diagnoses / Procedures Referred By Contact Refer red To Contact Dermatology Diagnoses Lesion on right eye = hx of skin cancer Bobby Das MD Psychiatric Dermatology Procedures Lesion on right eye = hx of skin cancer [address] [facility] [address] [place] [address] [place] [address] Fax: Referral ID Status Reason Start Date Expiration Date Visits Requ ested Visits Authorized [id number] Closed 04/22/2022 04/22/2023 1 1 Encounter Details Date Type Department Care Team Description 06/10/2022 Office Visit Dermatology at [facility], Neoplasm of Road unspecified behavior [address] [facility] bone[place] [address] [address] [address] and skin [phone] DERMATOLOGY [place] [address] Social History Tobacco Use Types Packs/Day Years [...] nevi N SCC N BCC 2015: right advent, BCC s/p mohs 09/2018: right eyebrow, BCC [...] N/A RTC: Pending pathology []Note routed to secretary book keeper []Recall placed in scheduling system []Appointment scheduled at checkout Scribe attestation: Sidney Higgins and Loretta Gomez CMA performed the documentation for this encounter in the presence of and acting as a scribe for Noel Burgos MD. I performed the above scribed service and agree with the accuracy of the documentation in this encounter. Reviewed and signed by: Noel Burgos MD Dermatology [facility] Loretta Cohen MD - 06/10/2022 11:00 AM EDT DERMATOLOGY TELEPHONE NOTE Koko Zamora 06/17/2022 [id number] Reason for call: Discuss biopsy results I [...] Office Visit Gastroenterology Negra Collins MD [facility] GASTROENTEROLOGY DEPT [place], [place] [address] (Wo bob) 09/05/2022 Appointment Cardiology Trinity Reid MD [facility] CARDIOLOGY [place], [place] [address] (Rebekah rojas) 09/05/2022 Office Visit Cardiology Trinity Reid MD [facility] ER DR CARDIOLOGY [place] [address] (Wo rk) documented as of this encounter [...] PM 2 1:20 EDT PM EDT Narrative [facility] LABORAT ORY - 06/10/2022 1:20 PM EDT Specimen requisition ordered. ??Separate Pathology report to follow Loretta Cohen MD PATHOLOGY/CYTOLOGY ORDERABLE S Performing Organization Address City/State/[place] [address] Surgical Pathology Report (06/10/2022 11:43 AM EDT) Component Value Ref Test Analysis [facility] Range Method Time Signature Surgical [id number] ? Location: [facility] Report The signing pathologist has (i) examined the relevant preparation(s) for the [facility] specimen(s) and (ii) rendered or confirmed the diagnosis(es) . HOSPITAL LABORATORY . ?Surgic al Pathology DIAGNOSIS Right lateral eyebrow, skin shave biopsy: - ??Basal cell carcinoma, no dular pattern, transected at the peripheral and deep specimen edges Electronically signed by: ?Delroy CARCAMO, PhD, Ian Verified: ??06/12/2022 14:33 ??Dermatopathologist Performed at: ??-[facility] Dept. of Pathology, [place], [place] SPECIMEN(S) SUBMITTED A - right lateral [...] Organization Address City/State/[place] [address] [facility] [address] documented in this encounter Visit Diagnoses Diagnosis Neoplasm of unspecified behavior of bone , soft tissue, and skin documented in this encounter Care Teams Rehabilitation Therapy Aide Relationship Specialty Start Date End Date Bobby Das MD PCP - General 10/02/[address] [place] [address] [place] [address] documented as of this encounter
--- OUTSIDE RECORDS SUMMARY | 2022-07-10 09:34 | XMS_ITS | Encounter Summary ---
:1940 Author Organization [facility] [place] [address] Care Team Providers Name Role Phone Bobby Das MD Primary Care Provider Reason for Referral Consultation (Routine) - Authorized Specialty Diagnoses / Procedures Referred By Contact Refer red To Contact Gastroenterology Diagnoses Adenomatous polyp of colon, unspecified part of colon Colonoscopy 06/25/22, discussed w/Dr. Ponce needs to be seen in clinic to discuss polyp / removal iso plavix & DOAC Isi Celaya MD [facility]astro 4l [facility] GASTROENTEROLOGY [place] [address] [place] [address] Phone: Fax: Referral ID Status Reason Start Date Expiration Visits Visits Date Requested Authorized [id number] Authorized Consult, 06/25/2022 06/25/2023 1 1 Test & Treat Scheduling Instructions To be seen in ~2mo Encounter Details Date Type Department Care Team Description 06/25/2022 Orders Only Gastroenterology at [facility] Isi Celaya Adenomatous polyp of [facility] Bobby Mera MD [place], [place] [address] [facility] part of colon [phone] [facility] [address] Social History Tobacco Use Types Packs/Day Years [...] [facility] DR GASTROENTEROLOGY DEPT [place] [phone] (Wo rk) 09/05/2022 Appointment Cardiology Trinity Reid MD [facility] CARDIOLOGY [place], [place] [address] (Wo rk) 09/05/2022 Office Visit Cardiology Trinity Reid MD [facility] CARDIOLOGY [place], [place] [address] (Wo rk) Scheduled Referrals Name Type Priority Associated Order Schedule Diagnoses Referral to Outpatient Routine Adenomatous polyp Ordered: Gastroenterology Referral of colon, 06/25/2022 unspecified part of colon documented as of this encounter Visit Diagnoses Diagnosis Adenomatous polyp of colon, unspecified part of colon documented in this encounter Care Teams Ethylene Plant Operator Relationship Specialty Start Date End Date Bobby Das MD PCP - General 10/02/[address] [place] [address] [place] [phone] documented as of this encounter
--- OUTSIDE RECORDS SUMMARY | 2022-07-10 09:35 | XMS_ITS | Encounter Summary ---
:1940 Author Organization [facility] [place] [address] Care Team Providers Name Role Phone Bobby Das MD Primary Care Provider Reason for Visit Auth/Cert Specialty Diagnoses / Procedures Referred By Contact Refer red To Contact Diagnoses GIB (gastrointestinal bleeding) Abe [facility] [place] [address] Referral ID Status Reason Start Date Expiration Date Visits Requ ested Visits Authorized [id number] 1 1 Encounter Details Date Type Department Care Team Description 05/31/2022 Anesthesia Event Gastroenterology at [facility] Elmer Johnson MD [facility] [place] [address] [facility] Yogi Machado CRNA [facility] [place] [address] [place] [address] Anesthesia Record Procedure Summary Procedure Name [...] by lisa Garner; leg Jaylene Gomez RN Incision 07/20/19; 1020; back; 07/20/19 1020 by [...] utility RA#[id number]); 1715 (LDA cleanup utility RA#[id number]) PIV 05/31/22; 1026; median cubital 05/31/22 1026 by 06/02/22 0400 by Km, vein (antecubital fossa), Lissette Garcia RN Laura O, RN left; 20 gauge; lumen/catheter not patent, removed per policy/procedure, catheter/device intact; 06/02/22; 0400 PIV 05/31/22; 1300; median cubital 05/31/22 1300 by Mariel, 06/02/22 1345 by vein (antecubital fossa), DION Carpenter Alysia O, RN right; [id number] catheter system; 20 gauge; no longer indicated, [...] Procedure Summary Date: 05/31/22 Room / Location: [facility] ENDO 3 / [facility] Anesthesia Start: 1603 Anesthesia Stop: 165 Procedures: EGD, UPPER GI ENDOSCOPY (N/A Trunk) EGD, W CONTROL OF BLEEDING, ANY METHOD Diagnosis: (melena) Surgeons: Giovani Ponce MD Responsible Provider: Elmer Johnson MD Anesthesia Type: MAC ASA Status: 3 All Anesthesia Providers: Anesthesiologist: Elmer Johnson MD POLYSOMNOGRAPHY TECH: Yogi Dawkins CRNA Vitals Value Taken Time BP 95/62 05/31/22 1720 Temp Pulse Resp 18 05/31/22 1720 SpO2 99 % 05/31/22 1720 Pain Level 0 05/31/22 1720 Patient Location: PACU/[facility] Level of Consciousness: Awake and Alert [...] IR Biopsy Spine 07/20/2019 Bobby Marshall MD [facility] RAD ??? IR VERTEBROPLASTY LUMBAR MULTIPLE LEVELS 07/20/2019 IR Vertebroplasty Lumbar Multiple Levels 07/20/2019 Bobby Marshall MD [facility] RAD ??? IR VERTEBROPLASTY THORACIC SINGLE LEVEL 10/25/2020 IR Vertebroplasty Thoracic Single Level 10/25/2020 Matt Chisholm MD [facility] INTERVENTIONL RAD ??? PRO EMBLC/THRMBC FEMORAL POPLITEAL AORTO-ILIAC ARTERY Left 05/15/2022 EMBOLECTOMY OR THROMBECTOMY, FEMOROPOPLITEAL, AORTOILIAC ARTERY BY LEG INCISION (WRVU 19.48) performed by Fito Summers MD at [facility] MAIN OR ??? PRO UPPER GI ENDOSCOPY, CTRL BLEED 05/31/2022 EGD, W CONTROL OF BLEEDING, ANY METHOD performed by Giovani Ponce MD at [facility] ENDOSCOPY ??? PRO UPPER GI ENDOSCOPY, DIAGNOSTIC N/A 05/31/2022 EGD, UPPER GI ENDOSCOPY performed by Giovani Ponce MD at [facility] ENDOS[facility] Social History Tobacco Use ??? [...] risks discussed with patient. Plan discussed with POLYSOMNOGRAPHY TECH. Anesthesia Screening documented in this encounter Plan of Treatment Upcoming Encounters Date Type Specialty Care Team Description 08/08/2022 Office Visit Gastroenterology Negra Collins MD [facility] GASTROENTEROLOGY DEPT [place], [place] [address] (Wo rk) 09/05/2022 Appointment Cardiology Trinity Reid MD [facility] CARDIOLOGY [place], [place] [address] (Wo rk) 09/05/2022 Office Visit Cardiology Trinity Reid MD [facility] CARDIOLOGY [place], [place] [address] (Wo rk) documented as of [...] mg documented in this encounter Care Teams Change Person Relationship Specialty Start Date End Date Bobby Das MD PCP - General 10/02/[address] [place] [address] [place] [phone] documented as of this encounter
--- OUTSIDE RECORDS SUMMARY | 2022-07-10 09:35 | XMS_ITS | Encounter Summary ---
:1940 [place] [address] Care Team Providers Name Role Phone Bobby Das MD Primary Care Provider Reason for Visit Reason Comments Dizziness Auth/Cert Specialty Diagnoses / Procedures Referred By Contact Refer red To Contact Diagnoses GIB (gastrointestinal bleeding) Abe [facility] [place] [address] Referral ID Status Reason Start Date Expiration Date Visits Requ ested Visits Authorized [id number] 1 1 Encounter Details Date Type Department Care Team Description 05/31/2022 - Hospital Encounter Intermediate Special Dixon Hinds MD [facility] [place] [address] GIB 06/02/2022 Care Unit [place] [address] (gastrointestinal [facility] [place] [address] bleeding) ([facility] [place] [address] Dx) [place] [address] Social History Tobacco Use Types Packs/Day Years [...] switching to a different bloodthinner with the social services outpatient. Call your doctor or seek medical [...] switchingto a different blood thinner with your social services as an outpatient Stopped Medications - Aspirin - Valsartan - Speak with your social services about the timing of restarting this Follow-up Appointments Future Appointments Date Time Provider Department Center 06/10/2022 11:00 AM Loretta Cohen MD [facility] 06/13/2022 7:30 AM Edson [place]os [place] [facility] VAS LAB [facility] 06/13/2022 8:00 AM Fito Summers MD [facility] V SURG [facility] 06/13/2022 10:00 AM Alan Reid MD [address] Your Inpatient Medical Team at [facility] Name(s) of your inpatient provider(s): Dr. John Ames For questions regarding issues relating to your hospitalization on the Hospital Medicine Service, please contact your inpatient physician through the [facility] [employer] Ii [employer]sembler [phone]. Issues after hours and on weekends will be handled by the Hospitalist staff on-call. Your Primary Care Provider Bobby Das MD [phone] Future Appointments and Orders Future Appointments and Orders Future Appointments Provider Department Dept Phone 06/10/2022 11:00 AM Loretta Cohen MD Dermatology [facility] Arrive at: Plate [address] [phone] 06/13/2022 7:30 AM Edson [place]os [place] Vascular Lab at [facility] Arrive at: Plate Cutter Area [phone] 06/13/2022 8:00 AM Fito Summers MD Vascular Surgery at [facility] Arrive at: Plate Cutter Area 06/13/2022 10:00 AM Alan Reid MD Cardiology at [facility] Arrive at: Plate Cutter Area [phone] For questions regarding this document or issues relating to this hospitalization on the Medical Service, please contact your inpatient physician through the [facility] [employer] Ii Assembler . Issues after hours and on weekends [...] switching to a different bloodthinner with the social services outpatient. Call your doctor or seek medical [...] switchingto a different blood thinner with your social services as an outpatient Stopped Medications - Aspirin - Valsartan - Speak with your social services about the timing of restarting this Follow-up Appointments Future Appointments Date Time Provider Department Center 06/10/2022 11:00 AM Loretta Cohen MD [facility] 06/13/2022 7:30 AM Edson [place] [facility] VAS LAB ILDA POWELL 06/13/2022 8:00 AM Fito Summers MD [facility] V SURG [facility] 06/13/2022 10:00 AM Alan Reid MD [facility] CARD 4A [facility] Your Inpatient Medical Team at [facility] Name(s) of your inpatient provider(s): Dr. John Ames For questions regarding issues relating to your hospitalization on the Hospital Medicine Service, please contact your inpatient physician through the [facility] [employer] Ii Assembler [phone]. Issues after hours and on weekends will be handled by the Hospitalist staff on-call. Your Primary Care Provider Bobby Das MD [phone] documented in this encounter Medications at Time [...] 04/12/20 21 (FLONASE) 50 mcg/actuation Nare route [place], Suspension daily as needed. fluorouraciL (EFUDEX) 5 [...] spent >30 minutes (Day of Discharge Code 31090) involved in the final examination of the [...] were not included. Hospital Medicine Progress Note [facility] Team - Pager #[phone] Admit Date: 05/31/2022 Name: Koko Zamora : [...] cardiology to discuss antiplatelet (ISO bleed and skilled nursing), following. ?? #CAD s/p stenting recently #HFrEF [...] Kurt Ames MD Internal Medicine, PGY-1 Medicine [facility] Team #[id number] Associated attestation - John Jolley MD - [...] of two midnights or is on the [facility] inpatient only procedure list (status C) due to: GI Bleeding documented in this encounter H&P Notes Mahendra Victor MD - 05/31/2022 4:33 PM EDT Images from the original note were not included. [facility] Medicine (#[id number]) History and Physical Patient info: Name: Koko Zamora : 1940 PCP: Bobby Das MD PCP phone number: [phone] Date of Admission: 05/31/2022 ( Hospital Day [...] IR Biopsy Spine 07/20/2019 Bobby Marshall MD [facility] INTERVENTIONL RAD ??? IR VERTEBROPLASTY LUMBAR MULTIPLE LEVELS 07/20/2019 IR Vertebroplasty Lumbar Multiple Levels 07/20/2019 Bobby Marshall MD [facility] INTERVENTIONL RAD ??? IR VERTEBROPLASTY THORACIC SINGLE LEVEL 10/25/2020 IR Vertebroplasty Thoracic Single Level 10/25/2020 Matt Chisholm MD [facility] INTERVENTIONL RAD ??? PRO EMBLC/THRMBC FEMORAL POPLITEAL AORTO-ILIAC ARTERY Left 05/15/2022 EMBOLECTOMY OR THROMBECTOMY, FEMOROPOPLITEAL, AORTOILIAC ARTERY BY LEG INCISION (WRVU 19.48) performed by Fito Summers MD at [facility] MAIN OR No family history on file. [...] 11 ??? fluticasone propionate (FLONASE) 50 mcg/actuation [place], Suspension as needed. ??? fluorouraciL (EFUDEX) 5 [...] Gas) No results found for: PHART, PO2ART, VCC5GDC, OKO6SYL Microbiology: N/A Pertinent radiology/diagnostic studies: Recent prior [...] Arpita Valle MD, PGY-3 05/31/2022 [facility] Medicine # [id number] Attending Staff Admission Documentation I have examined [...] 05/31/2022 3:58 PM EDT Norepinephrine pulled from [facility] for soft BPs. Upon arrival to [...] AM EDT Pt brought to XR by grade and center marker Brittany Ramirez MD - 05/31/2022 10:40 AM [...] have questions please contact the health healthcare administrator that requested your imaging first. Electronically signed by: Jl Zuluaga MD, [facility] ([phone]), at 05/31/2022 2:39 PM XR Chest PA [...] have questions please contact the health healthcare administrator that requested your imaging first. Electronically signed by: Alan Brink MD, [facility] ([phone]), at 05/31/2022 11:33 AM ED Course as [...] given hemodynamic instability and significant anemia, with Graahm consultation. The visit findings, diagnosis, and care plan were discussed with the patient, and his agree with the plan. 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 Patient reported blurry/hazy [...] Heparin gtt - plan to bridge to [facility] Discharge planning Increase strength & mobility [...] included. [facility] NAOMY P[place] [phone] INPATIENT CARDIOLOGY CONSULT NOTE Date of Consultation: 06/01/2022 Admit Date: 05/31/2022 Place of Service: IS86/IS86-A Referring Attending: REGINA HINDS COLEMAN W FRIEDMAN, HARLEY P Responsible Director Auto: Dr. Rizo Hospital Day 1 day Reason [...] LCX and LCx stent) who presented to [facility] on 05/31/2022 for GI bleed. Patient presented [...] IR Biopsy Spine 07/20/2019 Bobby Marshall MD [facility] INTERVENTIONL RAD ??? IR VERTEBROPLASTY LUMBAR MULTIPLE LEVELS 07/20/2019 IR Vertebroplasty Lumbar Multiple Levels 07/20/2019 Bobby Marshall MD [facility] INTERVENTIONL RAD ??? IR VERTEBROPLASTY THORACIC SINGLE LEVEL 10/25/2020 IR Vertebroplasty Thoracic Single Level 10/25/2020 Matt Chisholm MD [facility] INTERVENTIONL RAD ??? PRO EMBLC/THRMBC FEMORAL POPLITEAL AORTO-ILIAC ARTERY Left 05/15/2022 EMBOLECTOMY OR THROMBECTOMY, FEMOROPOPLITEAL, AORTOILIAC ARTERY BY LEG INCISION (WRVU 19.48) performed by Fito Summers MD at [facility] MAIN OR ALLERGIES: Allergies Allergen Reactions ??? [...] time ??? fluticasone propionate (FLONASE) 50 mcg/actuation [place], Suspension 1 spray by Each Nare route [...] from 05/31/2022 in Intermediate Special Care Unit [facility] ED to Hosp-Admission (Discharged) from 05/15/2022 in Intermediate Cardiac Care Unit [facility] Weight 77.1 kg (170 lb) [...] Neurology: Without focal deficit ECG: Echocardiogram: 05/16/2022 [facility] 05/20/2022 Coronary Angiography: Dominance: Right Left [...] 3.5 guiding catheter and a 3.5 [address] [place] [facility] [address] 20 Mhz. Imaging was successful. Image [...] A premounted 2.75 x 30 mm Rudy Burnet (AMPARO) was deployed with a maximum inflation [...] may require modification of this regimen. Consult [facility] Interventional Cardiology for questions. The 1 year [...] Hb drop. Unknown source. has had a [facility] with stent placed and revascularization of left lower extremity within the past two weeks, recently on anticoagulation Unknown source of bleeding TECHNIQUE: Helical CT of the abdomen and pelvis was performed before and after the intravenous administration contrast utilizing GI bleed protocol. Administered 125.0 ml of OMNIPAQUE 350.00 mg/ml. Oral contrast was not administered. COMPARISON: 05/15/2022 from [facility] FINDINGS: GI Tract: Pre-contrast: No bowel [...] have questions please contact the health healthcare administrator that requested your imaging first. Electronically signed by: Jl Zuluaga MD, [facility] ([phone]), at 05/31/2022 2:39 PM [place] 48 Hrs-15 [...] have questions please contact the health healthcare administrator that requested your imaging first. Electronically signed by: Alan Brink MD, [facility] ([phone]), at 05/31/2022 11:33 AM LABS Recent Labs [...] on xarelto, ischemic systolic heart failure (recent [facility] 05/20/2022 with 2V disease OM1 and distal RCA, had ostial LCX and LCx stent), recent admission for acutelimb ischemia LLE, where he had left common femoral transverse arteriotomy and primary repair, thromboembolectomy of the SFA, profunda and common femoral artery with 4 compartment fasciotomies, who presented to [facility] on 05/31/2022 for GI bleed. Cardiology consulted [...] attestation for additional insight. Rossy Anaya MD [facility] Supervisor [employer], PGY-5 Inpatient Cardiology Consults Pager #[phone] Please check Qgenda for on-call cardiology consults [...] A&Ox 4. On room air. VSS. 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 Adequate urine output, urinal at bedside, flomax [...] surrogate would be surrogate decision maker per [place] surrogate decision making law. (Only good for 180 days) Any patient receiving care in [place] must abide by [place] law. The hierarchy for surrogate decision making [...] (i) The agent with financial power of employment law attorney or a conservator appointed in [...] - rolling Home Address confirmed as: [address] [place] [phone] Social & Family Supports: All names listed below confirmed with patient as current and correct Extended Emergency Contact Information Primary Emergency Contact: Ursula Zamora Address: [address] [place] [id number] [facility] Relation: Spouse Current Care Provided by: self [...] Type: *No Product type* / Secondary Insurance: [facility] Secondary Insurance? (Only Medicare A&B): Yes ; Prescription Coverage: Yes Preferred Pharmacy: [id number] - [facility], [place] - [address] [facility] [address] [facility] [address] Status: Patient is a : No Primary Care Provider: Bobby Das MD [phone] Patient/Caregiver Goals of Treatment: Patient plans to [...] with transition of care planning. ASH Garcia Elevator Constructor [facility] Medicine/ Medical Specialties Pager- [phone] Plan [...] Operative Note Patient Name: Koko Rioson : [id number] MR#: [id number] Case Date: 05/31/2022 Surgeon: Surgeon(s) and Role: [...] He has had colonoscopies before in [place] - notes first ever he had 6 [...] IR Biopsy Spine 07/20/2019 Bobby Marshall MD [facility] INTERVENTIONL RAD ??? IR VERTEBROPLASTY LUMBAR MULTIPLE LEVELS 07/20/2019 IR Vertebroplasty Lumbar Multiple Levels 07/20/2019 Bobby Marshall MD [facility] INTERVENTIONL RAD ??? IR VERTEBROPLASTY THORACIC SINGLE LEVEL 10/25/2020 IR Vertebroplasty Thoracic Single Level 10/25/2020 aMtt Chisholm MD [facility] INTERVENTIONL RAD ??? PRO EMBLC/THRMBC FEMORAL POPLITEAL AORTO-ILIAC ARTERY Left 05/15/2022 EMBOLECTOMY OR THROMBECTOMY, FEMOROPOPLITEAL, AORTOILIAC ARTERY BY LEG INCISION (WRVU 19.48) performed by Fito Summers MD at [facility] MAIN OR SOCIAL HX: Social History Socioeconomic [...] sounds, tympanic to percussion RECTAL: performed with human resources mgr present, no overt masses, fissures, external hemorrhoids, [...] have questions please contact the health healthcare administrator that requested your imaging first. Electronically signed by: Alan Brink MD, [facility] ([phone]), at 05/31/2022 11:[address] Abdomen & [...] Collins MD [facility] GASTROENTEROLOGY DEPT [place], [place] [address] (Wo bob) 09/05/2022 Appointment Cardiology Trinity Reid MD [facility] CARDIOLOGY [place], [place] [address] (Wo bob) 09/05/2022 Office Visit Cardiology Trinity Reid MD [facility] ER DR CARDIOLOGY [place], [place] [address] (Wo rk) documented as of [...] EDT) athologist Signature Neutrophils % 61.3 % [facility] LABORATORY Neutr Abs (ANC) 4.44 1.70 - [facility] 6.10 [facility] x10(3)/[facility] LABORATORY Lymphocytes % 25.2 % [facility] LABOR[facility]ORY Lymphocytes Abs 1.8 0.9 - 3.2 [facility] x10(3)/[facility] LABORATORY Monocytes % 10.0 % [facility] LABOR[facility]ORY Monocyte Abs 0.7 0.3 - 0.9 [facility] x10(3)/[facility] LABORATORY Eosinophils % 2.1 % [facility] LABOR[facility]ORY Eosinophils Abs 0.2 0.0 - 0.4 [facility] x10(3)/[facility] LABORATORY Basophils % 0.7 % [facility] LABORATORY Basophils Abs 0.0 0.0 - 0.1 [facility] x10(3)/[facility] LABORATORY Immature Gran % 0.70 % [facility] LABORATORY Comment: [...] City/State/ZIP Code Phon e Number [place] [id number] [facility] LABORATORY Drive (ABNORMAL) Hemogram (06/02/2022 8:20 AM EDT) Analysis Performed At Patho logist Time Signature WBC 7.2 4.0 - 9.5 [place] x10(3)/[facility] LABORATORY RBC 2.74 (L) 4.58 - [place] 5.54 [facility] x10(6)/[facility] LABORATORY Hemoglobin 8.7 (L) 13.7 - [facility] 16.5 g/dL [facility] LABORATORY Hematocrit 25.7 (L) 40.5 - [facility] 48.5 % [facility] LABORATORY MCV 93.8 (H) 82.9 - [facility] 93.1 [facility] LABORATORY MCH 31.8 27.5 - [place] 32.1 pg [facility] LABORATORY MCHC 33.9 32.0 - [place] 35.7 g/dL [facility] LABORATORY Platelets 260 145 - 357 [facility] x10(3)/[facility] LABORATORY RDWSD 51.0 (H) 36.0 - [place] 45.0 [facility] LABORATORY RDWCV 14.9 (H) 11.4 - [facility] XIAO 13.8 % [facility] LABORATORY MPV 10.0 7.6 - 12.9 [facility] LABORATORY nRBC % Auto 0.0 % [facility] LABORATORY nRBC Abs Auto 0.000 0.000 - [place] 0.000 [facility] x10(3)/[facility] LABORATORY Specimen Anatomical Collection Method Collection Time Receive d Time (Source) Location / / Volume Laterality Blood 06/02/2022 8:20 AM 8:25 EDT AM EDT Resulting Agency Comment Spec In Lab Kurt Ames MD HEMATOLOGY ORDERABLES Performing Organization Address City/[facility]/[place] [address] Heparin (unfractionated) Level (06/02/2022 6:30 AM EDT) athologist Signature Heparin UFH 0.39 IU/mL [facility] LABORATORY Comment: Heparin (anti-Xa) levels [...] Organization Address City/State/[place] [address] Heparin (unfractionated) Level (06/02/2022 12:30 AM EDT) athologist Signature Heparin UFH 0.81 IU/mL [facility] LABORATORY Comment: Heparin (anti-Xa) levels [...] Victor MD HEMATOLOGY ORDERABLES Performing Organization Address City/[facility]/ZIP Code Phon e Number [address] Magnesium (06/02/2022 12:30 AM EDT) athologist Signature Magnesium 0.83 0.69 - 1.07 [facility] mmol/L [facility] LABORATORY Specimen Anatomical Collection Method Collection Time Receive d Time (Source) Location / / Volume Laterality Blood 06/02/2022 12:30 06/02/2022 AM EDT 12:40 AM EDT Resulting Agency Comment Spec In Lab Mahendra Victor MD CHEMISTRY ORDERABLES Performing Organization Address City/[facility] Phon e Number [address] (ABNORMAL) Basic Metabolic Panel (non-fasting) (06/02/2022 12:30 AM EDT) athologist Signature Glucose Lvl 151 65 - 199 [facility] mg/dL [facility] LABORATORY Comment: Diabetes: >=200 mg/dL plus symp toms BUN 12 10 - 20 mg/dL [facility] LABORATORY Creatinine 0.71 (L) 0.80 - 1.50 mg/dL [facility] LABORATORY Sodium 142 135 - 145 mmol/L [facility] LABORATORY Potassium 3.8 3.5 - 5.0 mmol/L [facility] Anion Gap 10 5 - 15 mmol/L [facility] LABORATORY Calcium 8.1 (L) 8.5 - 10.5 mg/dL [facility] LABORATORY Estimated GFR 93 >=60 mL/min/1.73 m?? [facility] [...] City/State/ZIP Code Phon e Number [place] [id number] HOSPITAL LABORATORY Drive (ABNORMAL) Differential, Automated (06/01/2022 7:29 PM EDT) P athologist Signature Neutrophils % 68.8 % [facility] LABORATORY Neutr Abs (ANC) 5.34 1.70 - [facility] 6.10 [facility] x10(3)/[facility] LABORATORY Lymphocytes % 19.6 % [facility] LABORATORY Lymphocytes Abs 1.5 0.9 - 3.2 [facility] x10(3)/[facility] LABORATORY Monocytes % 8.1 % [facility] LABORATORY Monocyte Abs 0.6 0.3 - 0.9 [facility] x10(3)/[facility] LABORATORY Eosinophils % 1.8 % [facility] LABORATORY Eosinophils Abs 0.1 0.0 - 0.4 [facility] x10(3)/[facility] LABORATORY Basophils % 0.8 % [facility] LABORATORY Basophils Abs 0.1 0.0 - 0.1 [facility] x10(3)/[facility] LABORATORY Immature Gran % 0.90 % [facility] LABORATORY Comment: [...] Organization Address City/State/[place] [address] (ABNORMAL) Hemogram (06/01/2022 7:29 PM EDT) Analysis Performed At Patho logist Time Signature WBC 7.8 4.0 - 9.5 [facility] x10(3)/[facility] LABORATORY RBC 2.65 (L) 4.58 - [place] 5.54 [facility] x10(6)/[facility] LABORATORY Hemoglobin 8.3 (L) 13.7 - [facility] 16.5 g/dL [facility] LABORATORY Hematocrit 24.8 (L) 40.5 - [place] 48.5 % [facility] LABORATORY MCV 93.6 (H) 82.9 - [facility] XIAO 93.1 [facility] LABORATORY MCH 31.3 27.5 - [place] 32.1 pg [facility] LABORATORY MCHC 33.5 32.0 - [facility] XIAO 35.7 g/dL [facility] LABORATORY Platelets 263 145 - 357 [facility] x10(3)/[facility] LABORATORY RDWSD 52.8 (H) 36.0 - [place] 45.0 [facility] LABORATORY RDWCV 15.4 (H) 11.4 - [facility] XIAO 13.8 % [facility] LABORATORY MPV 10.4 7.6 - 12.9 [facility] nRBC % Auto 0.0 % [facility] LABORATORY nRBC Abs Auto 0.000 0.000 - [place] 0.000 [facility] x10(3)/[facility] LABORATORY Specimen Anatomical Collection Method Collection Time Receive d Time (Source) Location / / Volume Laterality Blood 06/01/2022 7:29 PM 2 7:29 EDT PM EDT Resulting Agency Comment Spec In Lab Kurt Ames MD HEMATOLOGY ORDERABLES Performing Organization Address City/[facility]/ZIP Code Phon e Number [address] Heparin (unfractionated) Level (06/01/2022 7:29 PM EDT) P athologist Signature Heparin UFH 0.81 IU/mL [facility] LABORATORY Comment: Heparin (anti-Xa) levels [...] Organization Address City/State/[place] [address] (ABNORMAL) Heparin (unfractionated) Level (06/01/2022 11:32 AM EDT) Patholo gist Method Time Signature Heparin UFH 1.05 IU/mL [facility] Level (Critical) [facility] LABORATORY Comment: Critical Result called by [...] Organization Address City/State/[place] [address] (ABNORMAL) Differential, Automated (06/01/2022 5:56 AM EDT) [facility] Method Time Signature Neutrophils % 62.7 % [facility] LABORATORY Neutr Abs (ANC) 6.11 (H) 1.70 - [facility] 6.10 [facility] x10(3)/[facility] LABORATORY Lymphocytes % 23.5 % [facility] LABORATORY Lymphocytes Abs 2.3 0.9 - 3.2 [facility] x10(3)/[facility] LABORATORY Monocytes % 10.0 % [facility] LABORATORY Monocyte Abs 1.0 (H) 0.3 - 0.9 [facility] x10(3)/[facility] LABORATORY Eosinophils % 2.2 % [facility] LABORATORY Eosinophils Abs 0.2 0.0 - 0.4 [facility] x10(3)/[facility] [facility] LAB[facility]ATORY Basophils % 0.9 % [facility] LABORATORY Basophils Abs 0.1 0.0 - 0.1 [facility] x10(3)/[facility] LABORATORY Immature Gran % 0.70 % [facility] LABORATORY Comment: [...] City/State/ZIP Code Phon e Number [place] [id number] HOSPITAL LABORATORY Drive (ABNORMAL) Hemogram (06/01/2022 5:56 AM EDT) Analysis Performed At Patho logist Time Signature WBC 9.7 (H) 4.0 - 9.5 [facility] x10(3)/[facility] LABORATORY RBC 2.83 (L) 4.58 - [facility] XIAO 5.54 [facility] x10(6)/[facility] LABORATORY Hemoglobin 9.0 (L) 13.7 - [facility] 16.5 g/dL [facility] LABORATORY Hematocrit 26.7 (L) 40.5 - [facility] XIAO 48.5 % [facility] LABORATORY MCV 94.3 (H) 82.9 - [facility] 93.1 fL [facility] LABORATORY MCH 31.8 27.5 - [place] 32.1 pg [facility] LABORATORY MCHC 33.7 32.0 - [facility] XIAO 35.7 g/dL [facility] LABORATORY Platelets 250 145 - 357 [facility] x10(3)/[facility] LABORATORY RDWSD 54.3 (H) 36.0 - [place] 45.0 [facility] LABORATORY RDWCV 15.9 (H) 11.4 - [place] HAG[place] 13.8 % [facility] LABORATORY MPV 10.5 7.6 - 12.9 [facility] XIAO [facility] LABORATORY nRBC % Auto 0.0 % [facility] LABORATORY nRBC Abs Auto 0.000 0.000 - [place] 0.000 [facility] x10(3)/[facility] LABORATORY Specimen Anatomical Collection Method Collection Time Receive d Time (Source) Location / / Volume Laterality Blood 06/01/2022 5:56 AM 2 6:05 EDT AM EDT Resulting Agency Comment Spec In Lab Arpita Valle MD HEMATOLOGY ORDERABLES Performing Organization Address City/State/[place] [address] Heparin (unfractionated) Level (06/01/2022 4:30 AM EDT) athologist Signature Heparin UFH 0.68 IU/mL [facility] LABORATORY Comment: Heparin (anti-Xa) levels [...] Organization Address City/State/[place] [address] (ABNORMAL) Urinalysis with reflex Culture (06/01/2022 4:00 AM EDT) Patholo gist Method Time Signature Glucose UA 500 Negative [facility] (Critical) mg/dL [facility] LABORATORY Comment: Urinalysis result NOT critical without a combination of Glucose greater than or equal to 500 mg/dL AND Ketones greate r than or equal to 80 mg/dL Protein UA Negative Negative mg/dL [facility] LABORATORY Bilirubin UA Negative Negative mg/dL [facility] LABORATORY Comment: Clinical correlation required for [...] [facility] LABORATORY Blood UA Negative Negative mg/dL [facility] LABORATORY Ketones UA Negative Negative mg/dL [facility] LABORATORY Nitrite UA Negative Negative [facility] LABORATORY Leukocytes UA Negative Negative [facility] LABORATORY Appearance UA Clear Clear [facility] LABORATORY Spec [place] UA >=1.030 (A) 1.005 - 1.030 [facility] LABORATORY Color UA Yellow Yellow [facility] LABORATORY Culture Reflexed No [facility] LABORATORY Specimen Anatomical Collection Method Collection Time Receive d Time (Source) Location / / Volume Laterality Clean Catch 06/01/2022 4:00 AM 4:26 Urine EDT AM EDT Resulting Agency Comment Spec In Lab Mahendra Victor MD URINE ORDERABLES Performing Organization Address City/State/ZIP Code Phon e Number [address] Magnesium (06/01/2022 1:00 AM EDT) P athologist Signature Magnesium 0.93 0.69 - 1.07 [facility] mmol/L [facility] LABORATORY Specimen Anatomical Collection Method Collection Time Receive d Time (Source) Location / / Volume Laterality Blood 06/01/2022 1:00 AM 2 1:37 EDT AM EDT Resulting Agency Comment Spec In Lab Mahendra Victor MD CHEMISTRY ORDERABLES Performing Organization Address City/State/ZIP Code Phon e Number [facility] [place] [address] (ABNORMAL) Basic Metabolic Panel (non-fasting) (06/01/2022 1:00 AM EDT) P athologist Signature Glucose Lvl 148 65 - 199 [facility] mg/dL [facility] LABORATORY Comment: Diabetes: >=200 mg/dL plus symp toms BUN 23 (H) 10 - 20 mg/dL [facility] LABORATORY Creatinine 0.78 (L) 0.80 - 1.50 mg/dL [facility] LABORATORY Sodium 141 135 - 145 mmol/L [facility] LABORATORY Potassium 4.0 3.5 - 5.0 mmol/L [facility] [...] [facility] LABORATORY Anion Gap 9 5 - 15 mmol/L [facility] LABORATORY Calcium 8.6 8.5 - 10.5 mg/dL [facility] LABORATORY Estimated GFR 91 >=60 mL/min/1.73 m?? [facility] [...] Organization Address City/State/[place] [address] (ABNORMAL) Differential, Automated (06/01/2022 12:00 AM EDT) athologist Signature Neutrophils % 64.6 % [facility] LABORATORY Neutr Abs (ANC) 5.60 1.70 - [facility] 6.10 [facility] x10(3)/[facility] LABORATORY Lymphocytes % 22.4 % [facility] LABORATORY Lymphocytes Abs 1.9 0.9 - 3.2 [facility] x10(3)/[facility] LABORATORY Monocytes % 9.5 % [facility] LABORATORY Monocyte Abs 0.8 0.3 - 0.9 [facility] x10(3)[facility] LABORATORY Eosinophils % 2.1 % [facility] LABORATORY Eosinophils Abs 0.2 0.0 - 0.4 [facility] x10(3)[facility] LABORATORY Basophils % 0.6 % [facility] LABORATORY Basophils Abs 0.0 0.0 - 0.1 [facility] x10(3)/[facility] LABORATORY Immature Gran % 0.80 % [facility] LABORATORY Comment: [...] Organization Address City/State/[place] [address] (ABNORMAL) Hemogram (06/01/2022 12:00 AM EDT) Analysis Performed At Patho logist Time Signature WBC 8.7 4.0 - 9.5 [facility] x10(3)/[facility] LABORATORY RBC 2.77 (L) 4.58 - [place] 5.54 [facility] x10(6)/[facility] LABORATORY Hemoglobin 8.6 (L) 13.7 - [place] 16.5 g/dL [facility] LABORATORY Hematocrit 25.7 (L) 40.5 - [facility] X[facility] 48.5 % [facility] LABORATORY MCV 92.8 82.9 - [facility] 93.1 [facility] LABORATORY MCH 31.0 27.5 - [place] 32.1 pg [facility] LABORATORY MCHC 33.5 32.0 - [place] 35.7 g/dL [facility] LABORATORY Platelets 260 145 - 357 [facility] x10(3)/[facility] LABORATORY RDWSD 51.9 (H) 36.0 - [facility] 45.0 [facility] LABORATORY RDWCV 15.5 (H) 11.4 - [place] 13.8 % [facility] LABORATORY MPV 10.4 7.6 - 12.9 [facility] nRBC % Auto 0.0 % [facility] LABORATORY nRBC Abs Auto 0.000 0.000 - [place] 0.000 [facility] x10(3)/[facility] LABORATORY Specimen (Source) Anatomical Collection Method Collection Time Re ceived Time Location / / Volume Laterality Blood 06/01/2022 06/01/2022 12:1 0 AM EDT Resulting Agency Comment Spec In Lab Arpita Valle MD HEMATOLOGY ORDERABLES Performing Organization Address City/State/ZIP Code [place] [address] (ABNORMAL) Differential, Automated (05/31/2022 9:17 PM EDT) P athologist Signature Neutrophils % 59.6 % [facility] LABORATORY Neutr Abs (ANC) 3.98 1.70 - [facility] 6.10 [facility] x10(3)/[facility] LABORATORY Lymphocytes % 27.5 % [facility] LABORATORY Lymphocytes Abs 1.8 0.9 - 3.2 [facility] x10(3)/[facility] LABORATORY Monocytes % 9.1 % [facility] LABORATORY Monocyte Abs 0.6 0.3 - 0.9 [facility] x10(3)/[facility] LABORATORY Eosinophils % 2.4 % [facility] LABORATORY Eosinophils Abs 0.2 0.0 - 0.4 [facility] x10(3)/[facility] LABORATORY Basophils % 0.7 % [facility] LABORATORY Basophils Abs 0.0 0.0 - 0.1 [facility] x10(3)/[facility] LABORATORY Immature Gran % 0.70 % [facility] LABORATORY Comment: [...] City/State/ZIP Code Phon e Number [place] [id number] HOSPITAL LABORATORY Drive (ABNORMAL) Hemogram (05/31/2022 9:17 PM EDT) Analysis Performed At Patho logist Time Signature WBC 6.7 4.0 - 9.5 [facility] x10(3)/[facility] LABORATORY RBC 2.74 (L) 4.58 - [place] 5.54 [facility] x10(6)/[facility] LABORATORY Hemoglobin 8.5 (L) 13.7 - [facility] 16.5 g/dL [facility] LABORATORY Hematocrit 25.7 (L) 40.5 - [facility] 48.5 % [facility] LABORATORY MCV 93.8 (H) 82.9 - [facility] 93[facility]1 [facility] LABORATORY MCH 31.0 27.5 - [facility] 32.1 pg [facility] LABORATORY MCHC 33.1 32.0 - [facility] 35.7 g/dL [facility] LABORATORY Platelets 233 145 - 357 [facility] x10(3)/[facility] LABORATORY RDWSD 51.9 (H) 36.0 - [facility] 45.0 [facility] LABORATORY RDWCV 15.3 (H) 11.4 - [facility] 13.8 % [facility] LABORATORY MPV 10.3 7.6 - 12.9 [facility] LABORATORY nRBC % Auto 0.0 % [facility] LABORATORY nRBC Abs Auto 0.000 0.000 - [facility] 0.000 [facility] x10(3)/[facility] LABORATORY Specimen Anatomical Collection Method Collection Time Receive d Time (Source) Location / / Volume Laterality Blood 05/31/2022 9:17 PM 9:25 EDT PM EDT Resulting Agency Comment Spec In Lab Arpita Valle MD HEMATOLOGY ORDERABLES Performing Organization Address City/State/[place] [address] Transfuse RBC (05/31/2022 7:36 PM EDT) Regina Hinds MD NURSING TREATMENT ORDERABLES - BLOOD ADMIN Transfuse RBC (05/31/2022 7:36 PM EDT) Regina Hinds MD NURSING TREATMENT ORDERABLES - BLOOD ADMIN UPPER GI ENDOSCOPY (05/31/2022 3:37 PM EDT) Component Value Ref Test Analysis Performed At Patholo gist Range Method Time Signature UPPER GI [facility] PROVATION ENDOSCOPY Endoscopy Procedure Date: 05/31/2022 3:37 PM ? Patient Name: Koko Zamora ? Date of : 1940 ? Age: 81 ? Order #: [id number] ? Instrument Name: [id number] ? Procedure: ? Upper GI endoscopy Indications: [...] par t of ? duodenum The patient le ated the ? procedure well. ? Findings: [...] Procedure Code(s): ? --- Professional --- ? 68830, Esophagogastroduode noscopy, ? flexible, transoral; with control [...] stomach ? and duodenum CPT copyright 2020 [employer]. All rights reserved. The codes documented in this report are preliminary and upon chain sales representative review may be revised to meet current [...] have questions please contact the health healthcare administrator that requested your imaging first. ? Electronically signed by: Jl walter MD, [facility] ([phone]), at 05/31/2022 2:39 PM Narrative 05/31/2022 2:39 [...] enlarged lymph nodes. Vasculature: Patent common iliac, cotton stripper al iliac, and common femoral arteries bilaterally. [...] enlarged lymph nodes. Vasculature: Patent common iliac, cotton stripper al iliac, and common femoral arteries bilaterally. [...] have questions please contact the health healthcare administrator that requested your imaging first. Electronically signed by: Jl walter MD, [facility] ([phone]), at 05/31/2022 2:39 PM Regina Hinds MD IMG CT ORDERABLES Type and Screen Validity (05/31/2022 1:43 PM EDT) [facility] Method Time Signature T&S only valid [facility] LABORATORY Comment: This Type and Screen result is only valid at the [facility] Specimen Anatomical Collection Method Collection Time Receive d Time (Source) Location / / Volume Laterality Blood 05/31/2022 1:43 PM 2 1:57 EDT PM EDT Resulting Agency Comment Spec In Lab Regina Hinds MD BLOOD BANK ORDERABLES Performing Organization Address City/[facility]/[place] [address] ABORH Recheck Status (05/31/2022 1:43 PM EDT) [facility] Method Time Signature ABORH Type Completed [facility] LABORATORY Specimen Anatomical Collection Method Collection Time Receive d Time (Source) Location / / Volume Laterality Blood 05/31/2022 1:43 PM 2 1:57 EDT PM EDT Resulting Agency Comment Spec In Lab Regina Hinds MD BLOOD BANK ORDERABLES Performing Organization Address City/[facility]/[place] [address] Antibody screen (05/31/2022 1:43 PM EDT) [facility] Method [place] Signature Ab Screen Negative [facility] LABORATORY Expires at 06/03/2022 [facility] [id number] on: [facility] LABORATORY Specimen Anatomical Collection Method Collection Time Receive d Time (Source) Location / / Volume Laterality Blood 05/31/2022 1:43 PM 2 1:57 EDT PM EDT Resulting Agency Comment Spec In Lab Regina Hinds MD BLOOD BANK ORDERABLES Performing Organization Address City/[facility]/[place] [address] ABO/Rh Typing (05/31/2022 1:43 PM EDT) P athologist Signature ABORh Type O Pos [facility] LABORATORY Specimen Anatomical Collection Method Collection Time Receive d Time (Source) Location / / Volume Laterality Blood 05/31/2022 1:43 PM 2 1:57 EDT PM EDT Resulting Agency Comment Spec In Lab Regina Hinds MD BLOOD BANK ORDERABLES Performing Organization Address City/[facility] [place] [address] Prepare RBC (05/31/2022 1:35 PM EDT) P athologist Signature Dispensed? Yes [facility] LABORATORY Specimen Anatomical Collection Method Collection Time Receive d Time (Source) Location / / Volume Laterality Blood 05/31/2022 1:35 PM 2 1:30 EDT PM EDT Regina Hinds MD BLOOD BANK ORDERABLES Performing Organization Address City/[facility]/[place] [address] Prepare RBC (05/31/2022 1:25 PM EDT) P athologist Signature Dispensed? Yes [facility] LABORATORY Specimen Anatomical Collection Method Collection Time Receive d Time (Source) Location / / Volume Laterality Blood 05/31/2022 1:25 PM 2 1:23 EDT PM EDT Regina Hinds MD BLOOD BANK ORDERABLES Performing Organization Address City/[facility] [place] [address] (ABNORMAL) Differential, Automated (05/31/2022 12:44 PM EDT) P athologist Signature Neutrophils % 62.0 % [facility] LABORATORY Neutr Abs (ANC) 4.71 1.70 - [facility] 6.10 [facility] x10(3)/[facility] LABORATORY Lymphocytes % 24.1 % [facility] LABORATORY Lymphocytes Abs 1.8 0.9 - 3.2 [facility] x10(3)/[facility] LABORATORY Monocytes % 10.8 % [facility] LABORATORY Monocyte Abs 0.8 0.3 - 0.9 [facility] x10(3)/[facility] LABORATORY Eosinophils % 1.6 % [facility] LABORATORY Eosinophils Abs 0.1 0.0 - 0.4 [facility] x10(3)/[facility] LABORATORY Basophils % 0.7 % [facility] LABORATORY Basophils Abs 0.0 0.0 - 0.1 [facility] x10(3)/[facility] LABORATORY Immature Gran % 0.80 % [facility] LABORATORY Comment: [...] City/State/ZIP Code Phon e Number [place] [id number] HOSPITAL LABORATORY Drive (ABNORMAL) Hemogram (05/31/2022 12:44 PM EDT) Analysis Performed At Patho logist Time Signature WBC 7.6 4.0 - 9.5 [facility] x10(3)/[facility] LABORATORY RBC 2.11 (L) 4.58 - [facility] 5.54 [facility] x10(6)/[facility] LABORATORY Hemoglobin 6.9 (L) 13.7 - [facility] g/dL [facility] LABORATORY Hematocrit 20.8 (L) 40.5 - [facility] 48.5 % [facility] LABORATORY MCV 98.6 (H) 82.9 - [facility] 93.1 [facility] LABORATORY MCH 32.7 (H) 27.5 - [facility] 32.1 pg [facility] LABORATORY MCHC 33.2 32.0 - [facility] 35.7 g/dL [facility] Platelets 255 145 - 357 [facility] x10(3)/[facility] LABORATORY RDWSD 47.7 (H) 36.0 - [facility] 45.0 [facility] RDWCV 13.4 11.4 - [facility] 13.8 % [facility] LABORATORY MPV 10.7 7.6 - 12.9 [facility] LABORATORY nRBC % Auto 0.0 % [facility] nRBC Abs Auto 0.000 0.000 - [facility] 0.000 [facility] x10(3)/[facility] LABORATORY Specimen Anatomical Collection Method Collection Time Receive d Time (Source) Location / / Volume Laterality Blood 05/31/2022 12:44 05/31/2022 PM EDT 12:57 PM EDT Resulting Agency Comment Spec In Lab Brittany Ramirez MD HEMATOLOGY ORDERABLES Performing Organization Address City/State/[place] [address] (ABNORMAL) BLOOD GAS 2 VENOUS (05/31/2022 11:24 AM EDT) P athologist Signature pH [place] 7.38 7.32 - [facility] 7.42 [facility] LABORATORY pCO2 [place] 40 (L) 41 - 51 [facility] LABORATORY pO2 [place] 18 (L) 25 - 40 [facility] LABORATORY HCO3 [place] 23.3 mmol/L [facility] LABORATORY BE [place] -1.8 mmol/L [facility] LABORATORY Hgb Blood Gas 7.0 (L) 13.7 - [facility] 16.5 g/dL [facility] LABORATORY O2HB [place] 24.3 % [facility] LABORATORY COHB [place] 1.4 % [facility] Comment: Nonsmokers: 0.5-1.5% COHB Smokers: Variable, but usually less than 10% Toxic: 20-30% COHB Lethal: Greater than 60% COHB METHB [place] 1.7 (H) <=1.5 % [facility] LABORATORY Na Whole Blood 137 135 - 145 mmol/L [facility] LABORATORY K Whole Blood 3.9 3.5 - 5.0 mmol/L [facility] LABORATORY Comment: Please note: Patients with WBC >100,000 may have falsely elevated Potassium levels. Contact the Clinical Chemistry L aboratory if there are any questions. ICa Whole Blood 1.19 1.15 - 1.33 mmol/L [facility] Lactate WB 1.4 0.5 - 2.2 mmol/L [facility] LABORATORY BGas Source Venous [facility] LABORATORY Specimen Anatomical Collection Method Collection Time Receive d Time (Source) Location / / Volume Laterality Blood 05/31/2022 11:24 05/31/2022 AM EDT 11:24 AM EDT Regina Hinds MD CHEMISTRY ORDERABLES Performing Organization Address City/State/[place] [address] TSH [place] (05/31/2022 11:20 AM EDT) P athologist Signature TSH 1.67 0.27 - 4.20 [facility] mcIU/mL [facility] LABORATORY Comment: Reference Interval (mcIU/mL): Females: ??First Trimester: 0.23-3.88 ??Second Trimester: 0.22-3.90 ??Third Trimester: 0.44-4.66 Specimen Anatomical Collection Method Collection Time Receive d Time (Source) Location / / Volume Laterality Blood 05/31/2022 11:20 05/31/2022 AM EDT 11:28 AM EDT Resulting Agency Comment Spec In Lab Regina Hinds MD CHEMISTRY ORDERABLES Performing Organization Address City/State/[place] [address] XR Chest PA & [...] have questions please contact the health healthcare administrator that requested your imaging first. ? Electronically signed by: Alan strong MD, [facility] ([phone]), at 05/31/2022 11:33 AM Narrative 05/31/2022 11:33 [...] have questions please contact the health healthcare administrator that requested your imaging first. Regina Hinds MD IMG DX ORDERABLES Lipase (05/31/2022 10:50 AM EDT) athologist Signature Lipase 41 0 - 60 [facility]/L [facility] LABORATORY Specimen Anatomical Collection Method Collection Time Receive d Time (Source) Location / / Volume Laterality Blood Venous Draw / 05/31/2022 10:50 05/31/2022 Unknown AM EDT 11:11 AM EDT Resulting Agency Comment Spec In Lab Zain Champion MD CHEMISTRY ORDERABLES Performing Organization Address City/State/[place] [address] (ABNORMAL) Hepatic Function Panel (05/31/2022 10:50 AM EDT) Analysis Performed At Patho logist Time Signature Total Protein 6.4 6.1 - 8.0 [facility] g/dL [facility] LABORATORY Albumin 4.1 3.2 - 5.2 [facility] g/dL [facility] LABORATORY AST 24 0 - 39 [facility]/L [facility] LABORATORY ALT 44 0 - 55 [facility] unit/L [facility] LABORATORY Alk Phos 63 40 - 130 [facility] unit/L [facility] LABORATORY Total <0.2 (L) 0.2 - 1.3 [facility] Bilirubin mg/dL [facility] LABORATORY Bili, Direct 0.1 0.0 - 0.3 [facility] mg/dL [facility] LABORATORY Specimen Anatomical Collection Method Collection Time Receive d Time (Source) Location / / Volume Laterality Blood Venous Draw / 05/31/2022 10:50 05/31/2022 Unknown AM EDT 11:11 AM EDT Resulting Agency Comment Spec In Lab Zain Champion MD CHEMISTRY ORDERABLES Performing Organization Address City/[facility]/ZIP Code Phon e Number [address] Blue Tube HOLD (05/31/2022 10:50 AM EDT) P athologist Signature Blue Hold Sample in [facility] lab. [facility] LABORATORY Specimen Anatomical Collection Method Collection Time Receive d Time (Source) Location / / Volume Laterality Blood Venous Draw / 05/31/2022 10:50 05/31/2022 Unknown AM EDT 11:05 AM EDT Brittany Ramirez MD HEMATOLOGY ORDERABLES Performing Organization Address City/[facility]/ZIP Code Phon e Number [address] (ABNORMAL) Differential, Automated (05/31/2022 10:50 AM EDT) P athologist Signature Neutrophils % 66.9 % [facility] LABORATORY Neutr Abs (ANC) 5.58 1.70 - [facility] 6.10 [facility] x10(3)/[facility] LABORATORY Lymphocytes % 22.2 % [facility] LABORATORY Lymphocytes Abs 1.8 0.9 - 3.2 [facility] x10(3)/[facility] LABORATORY Monocytes % 7.8 % [facility] LABORATORY Monocyte Abs 0.6 0.3 - 0.9 [facility] x10(3)/[facility] LABORATORY Eosinophils % 1.2 % [facility] LABORATORY Eosinophils Abs 0.1 0.0 - 0.4 [facility] x10(3)/[facility] LABORATORY Basophils % 0.7 % [facility] LABORATORY Basophils Abs 0.1 0.0 - 0.1 [facility] x10(3)/[facility] LABORATORY Immature Gran % 1.20 % [facility] LABORATORY Comment: Immature granulocytes(IG's)percentage an d absolute count will include metamyelocytes, myelocytes, and promyelo cytes. Blood smears from CBCs yielding IG's will be scanned manually for concor dance. If this scan disagrees with the automated IG or if promyelocytes are not ed, a manual differential will be performed. Rain Gran Abs 0.10 (H) 0.00 - 0.04 x10(3)/[facility] LABORATORY Specimen Anatomical Collection Method Collection Time Receive d Time (Source) Location / / Volume Laterality Blood 05/31/2022 10:50 05/31/2022 AM EDT 11:03 AM EDT Resulting Agency Comment Spec In Lab Brittany Ramirez MD HEMATOLOGY ORDERABLES Performing Organization Address City/State/ZIP Code Phon e Number [place] [phone] [facility]ORY [address] (ABNORMAL) Hemogram (05/31/2022 10:50 AM EDT) Analysis Performed At Patho logist Time Signature WBC 8.3 4.0 - 9.5 [facility] x10(3)/[facility] LABORATORY RBC 2.26 (L) 4.58 - [facility] 5.54 [facility] x10(6)/[facility] LABORATORY Hemoglobin 7.4 (L) 13.7 - [facility] g/dL [facility] LABORATORY Hematocrit 22.3 (L) 40.5 - [facility] 48.5 % [facility] LABORATORY MCV 98.7 (H) 82.9 - [facility] 93.1 fL [facility] LABORATORY MCH 32.7 (H) 27.5 - [facility] 32.1 pg [facility] LABORATORY MCHC 33.2 32.0 - [facility] 35.7 g/dL [facility] LABORATORY Platelets 283 145 - 357 [facility] x10(3)/[facility] LABORATORY RDWSD 47.0 (H) 36.0 - [facility] 45.0 [facility] LABORATORY RDWCV 13.4 11.4 - [facility] 13.8 % [facility] LABORATORY MPV 10.8 7.6 - 12.9 [facility] LABORATORY nRBC % Auto 0.0 % [facility] LABORATORY nRBC Abs Auto 0.000 0.000 - [facility] XIAO 0.000 [facility] x10(3)/[facility] LABORATORY Specimen Anatomical Collection Method Collection Time Receive d Time (Source) Location / / Volume Laterality Blood 05/31/2022 10:50 05/31/2022 AM EDT 11:03 AM EDT Resulting Agency Comment Spec In Lab Brittany Ramirez MD HEMATOLOGY ORDERABLES Performing Organization Address City/State/ZIP Code Phon e Number [address] Phosphorus (05/31/2022 10:50 AM EDT) P athologist Signature Phosphorus 3.2 2.5 - 4.5 [facility] XIAO mg/dL [facility] LABORATORY Specimen Anatomical Collection Method Collection Time Receive d Time (Source) Location / / Volume Laterality Blood 05/31/2022 10:50 05/31/2022 AM EDT 11:03 AM EDT Resulting Agency Comment Spec In Lab Regina Hinds MD CHEMISTRY ORDERABLES Performing Organization Address City/State/ZIP Code Phon e Number [address] Magnesium (05/31/2022 10:50 AM EDT) P athologist Signature Magnesium 0.93 0.69 - 1.07 [facility] mmol/L [facility] LABORATORY Specimen Anatomical Collection Method Collection Time Receive d Time (Source) Location / / Volume Laterality Blood 05/31/2022 10:50 05/31/2022 AM EDT 11:03 AM EDT Resulting Agency Comment Spec In Lab Regina Hinds MD CHEMISTRY ORDERABLES Performing Organization Address City/State/ZIP Code Phon e Number [address] (ABNORMAL) pro-Brain Natriuretic Peptide (05/31/2022 10:50 AM EDT) athologist Signature ProBNP 1,077 (H) <=449 [facility] Polatis pg/mL [facility] LABORATORY Specimen Anatomical Collection Method Collection Time Receive d Time (Source) Location / / Volume Laterality Blood 05/31/2022 10:50 05/31/2022 AM EDT 11:03 AM EDT Resulting Agency Comment Spec In Lab Regina Hinds MD CHEMISTRY ORDERABLES Performing Organization Address City/State/[place] [address] Troponin (05/31/2022 10:50 AM EDT) athologist Signature Troponin-T <0.01 0.00 - 0.00 [facility] ng/mL [facility] LABORATORY Comment: The 99th percentile for Troponin T is le ss than 0.01 ng/mL, any detectable cTnT concentration using this assay should be considered elevated. According to the third universal definit ion of myocardial infarction the following criteria with a clinical prese ntation consistent with acute myocardial ischemia meets the diagnosis for a myocardial infarction ([place]). Detection of a rise and/or fall of [...] additional sample may be indicated. Reference: Third [place] Definition of Myocardial Infarction. Journal of the [place] [employer] 2012;60:1581-98 Specimen Anatomical Collection Method Collection Time Receive d Time (Source) Location / / Volume Laterality Blood 05/31/2022 10:50 05/31/2022 AM EDT 11:03 AM EDT Resulting Agency Comment Spec In Lab Regina Hinds MD CHEMISTRY ORDERABLES Performing Organization Address City/State/ZIP Code Phon e Number [place] [phone] [facility] LAB[address]ORY [address] (ABNORMAL) Basic Metabolic Panel (non-fasting) (05/31/2022 10:50 AM EDT) athologist Signature Glucose Lvl 223 (H) 65 - 199 [facility] mg/dL [facility] LABORATORY Comment: Diabetes: >=200 mg/dL plus symp toms BUN 39 (H) 10 - 20 mg/dL [facility] LABORATORY Creatinine 0.91 0.80 - 1.50 mg/dL [facility] LABORATORY Sodium 140 135 - 145 mmol/L [facility] LABORATORY Potassium 4.1 3.5 - 5.0 mmol/L [facility] [...] Anion Gap 10 5 - 15 mmol/L [facility] LABORATORY Calcium 9.1 8.5 - 10.5 mg/dL [facility] LABORATORY Estimated GFR 86 >=60 mL/min/1.73 m?? [facility] [...] Organization Address City/State/[place] [address] EKG 12 Lead (05/31/2022 10:11 AM EDT) Component Value Ref Range Test Analysis Performed Pathologis t Method Time At Signature Ventricular rate 106 BPM MUSE SYSTEM QRS Duration 122 ms MUSE SYSTEM Q-T Interval 368 ms MUSE SYSTEM QTC Calculated 488 ms MUSE SYSTEM (Bezet) Calculated R [place] -43 degrees MUSE SYSTEM Calculated T [place] 109 degrees MUSE SYSTEM INTERPRETATION Atrial fibrillation with rapid ventricular response MUSE SYSTEM Left axis deviation Minimal voltage criteria for LVH, may be normal variant ( [place] product ) Cannot rule out Anterior infarct , age undetermined Abnormal ECG When compared with ECG of 20-MAY-2022 19:04, No significant change was found I personally reviewed the tracing and edited the fellows int erpretation Confirmed by fellow MD Mike, [place] ([id number]) on 022 8:36:21 PM Confirmed by MD [...] (Lidoderm) 5% patch 2 patch(Linked Group 1) 3428 (Patch Applied - Provider: Raven Barbour RN [...] Yu, do not give)1150 (Given - Provider: Triniadd Saenz RN) 0035 (Given - Provider: Raven [...] - Less than 0.1 international unit/mL: Ad fisher trammel net 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 to med 0-4,000 Units, Intravenous, [facility], Starting on Fri05/31/22 at 2014, [...]
Routine documented in this encounter Care Teams Manual Plate Filler Relationship Specialty Start Date End Date Bobby Das MD PCP - General 10/02/[address] [place] [address] [place] [id number] documented as of this encounter
--- OUTSIDE RECORDS SUMMARY | 2022-07-10 09:35 | XMS_ITS | Encounter Summary ---
:1940 [place] [address] Care Team Providers Name Role Phone Bobby Das MD Primary Care Provider Reason for Referral Diagnostic Test (Routine) - Closed Specialty Diagnoses / Procedures Referred By Contact Refer red To Contact Cardiology Diagnoses Paroxysmal atrial fibrillation Nasrin Parra PA [facility] Non-Inv Card Lab Procedures Ziopatch 48 Hrs-15 Days [facility] VASCULAR SURGERY [place], [place] [id number] [place] [phone] Fax: Referral ID Status Reason Start Date Expiration Date Visits V isits Requested Authorized [id number] Closed Specialty 05/21/2022 10/21/2022 1 1 Service Requested Reason for Visit Auth/Cert Specialty Diagnoses / Procedures Referred By Contact Refer red To Contact Diagnoses Limb ischemia LLE thrombus Fito Summers MD [facility] [place] [address] Referral ID Status Reason Start Date Expiration Date Visits Requ ested Visits Authorized [id number] 1 1 Encounter Details Date Type Department Care Team Description 05/21/2022 Hospital Encounter Non-Invasive Paroxysma l atrial [place] [phone] Social History Tobacco Use Types Packs/Day [...] 04/12/20 21 (FLONASE) 50 mcg/actuation Nare route [place], Suspension daily as needed. fluorouraciL (EFUDEX) 5 [...] [facility] DR GASTROENTEROLOGY DEPT [place], [place] [address] (Wo rk) 09/05/2022 Appointment Cardiology Trinity Reid MD [facility] CARDIOLOGY [place], [place] [address] (Wo rk) 09/05/2022 Office Visit Cardiology Trinity Reid MD [facility] CARDIOLOGY [place], [place] [address] (Wo rk) documented as of [...] fibrillation documented in this encounter Care Teams Ad Operations Intern Relationship Specialty Start Date End Date Bobby Das MD PCP - General 10/02/[address] [place] [address] [place] [id number] documented as of this encounter
--- OUTSIDE RECORDS SUMMARY | 2022-07-10 09:35 | XMS_ITS | Encounter Summary ---
:1940 Author Organization [facility] [place] [address] Care Team Providers Name Role Phone Bobby Das MD Primary Care Provider Encounter Details Date Type Department Care Team Description 05/28/2022 Telephone Vascular Surgery at [facility] Dominique Bolivar, [place] [address] Social History Tobacco Use Types Packs/Day [...] RN - 05/28/2022 1:20 PM EDT This principal technical writer returned phone call due to 's [...] cardiac history and symptoms of lightheadedness, this principal technical writer recommended the patient be evaluated. Discussed going to local ED ([facility]) where staff could also phone vascular and/or cardiac at [facility] for planning. The patient agreed to do this after he has lunch. documented in this encounter Plan of Treatment Upcoming Encounters Date Type Specialty Care Team Description 08/08/2022 Office Visit Gastroenterology Negra Collins MD [facility] DR GASTROENTEROLOGY DEPT [place], [place] [address] (Wo rk) 09/05/2022 Appointment Cardiology Trinity Reid MD [facility] CARDIOLOGY [place], [place] [address] (Wo rk) 09/05/2022 Office Visit Cardiology Trinity Reid MD [facility] CARDIOLOGY [place], [place] [address] (Wo rk) documented as of this encounter Visit Diagnoses Not on filedocumented in this encounter Care Teams Box Machine Operator Relationship Specialty Start Date End Date Bobby Das MD PCP - General 10/02/[address] [place] [address] [place] [phone] documented as of this encounter
--- OUTSIDE RECORDS SUMMARY | 2022-07-10 09:35 | XMS_ITS | Encounter Summary ---
:1940 Author Organization [facility] [place] [address] Care Team Providers Name Role Phone Bobby Das MD Primary Care Provider Reason for Visit Reason Comments Dizziness Auth/Cert Specialty Diagnoses / Procedures Referred By Contact Refer red To Contact Diagnoses GIB (gastrointestinal bleeding) Abe [facility] [place] [address] Referral ID Status Reason Start Date Expiration Date Visits Requ ested Visits Authorized [id number] 1 1 Encounter Details Date Type Department Care Team Description 05/31/2022 Surgery Gastroenterology at [facility] Giovani Ponce, EGD, UPPER GI [facility] Bobyb [place] [address] [facility] [phone] [address] [place] [address] Social History Tobacco Use Types Packs/Day [...] switching to a different bloodthinner with the mine safety director outpatient. Call your doctor or seek medical [...] switchingto a different blood thinner with your mine safety director as an outpatient Stopped Medications - Aspirin - Valsartan - Speak with your mine safety director about the timing of restarting this Follow-up Appointments Future Appointments Date Time Provider Department Center 06/10/2022 11:00 AM Loretta Cohen MD [facility] 06/13/2022 7:30 AM Edson [place]os [place] [facility] VAS LAB [facility] 06/13/2022 8:00 AM Fito Summers MD [facility] V SURG [facility] 06/13/2022 10:00 AM Alan Reid MD [facility] CARD [address] [place] [address] Your Inpatient Medical Team at [facility] Name(s) of your inpatient provider(s): Dr. John Ames For questions regarding issues relating to your hospitalization on the Hospital Medicine Service, please contact your inpatient physician through the [facility] Walnut Dehydrator Operator [phone]. Issues after hours and on weekends will be handled by the Hospitalist staff on-call. Your Primary Care Provider Bobby Das MD [phone] Future Appointments and Orders Future Appointments and Orders Future Appointments Provider Department Dept Phone 06/10/2022 11:00 AM Loretta Cohen MD Dermatology at [facility] Arrive at: Medical Receptionist [address] [place] [phone] 06/13/2022 7:30 AM Edson [place]os [place] Vascular Lab at [facility] Arrive at: Medical Receptionist Area 06/13/2022 8:00 AM Fito Summers MD Vascular Surgery at [facility] Arrive at: Medical Receptionist Area 06/13/2022 10:00 AM Alan Reid MD Cardiology at [facility] Arrive at: Medical Receptionist Area 4A [phone] For questions regarding this document or issues relating to this hospitalization on the Medical Service, please contact your inpatient physician through the [facility] Walnut Dehydrator Operator . Issues after hours and on weekends [...] switching to a different bloodthinner with the mine safety director outpatient. Call your doctor or seek medical [...] switchingto a different blood thinner with your mine safety director as an outpatient Stopped Medications - Aspirin - Valsartan - Speak with your mine safety director about the timing of restarting this Follow-up Appointments Future Appointments Date Time Provider Department Center 06/10/2022 11:00 AM Loretta Cohen MD [facility] 06/13/2022 7:30 AM Edson [place] [facility] VAS LAB ILDA POWELL 06/13/2022 8:00 AM Fito Summers MD [facility] V SURG [facility] 06/13/2022 10:00 AM Alan Reid MD [facility] CARD 4A [facility] Your Inpatient Medical Team at [facility] Name(s) of your inpatient provider(s): Dr. John Ames For questions regarding issues relating to your hospitalization on the Hospital Medicine Service, please contact your inpatient physician through the [facility] Walnut Dehydrator Operator [phone]. Issues after hours and on weekends will be handled by the Hospitalist staff on-call. Your Primary Care Provider Bobby Das MD [phone] documented in this encounter Medications at Time [...] 04/12/20 21 (FLONASE) 50 mcg/actuation Nare route Alpine, Suspension daily as needed. fluorouraciL (EFUDEX) 5 [...] spent >30 minutes (Day of Discharge Code 69567) involved in the final examination of the [...] from the original note were not included. [facility] Progress Note Hoven Team - Pager #[phone] Admit Date: 05/31/2022 Name: Koko Zamora : [...] cardiology to discuss antiplatelet (ISO bleed and custodial), following. ?? #CAD s/p stenting recently #HFrEF [...] Kurt Ames MD Internal Medicine, PGY-1 Medicine Hoven Team #[id number] Associated attestation - John Jolley MD - 06/01/2022 5:02 PM EDT [facility] -- Attending Progress Note Please [...] from the original note were not included. [facility] (#[id number]) History and Physical Patient info: Name: Koko Zamora : 1940 PCP: Bobby Das MD PCP phone number: [phone] Date of Admission: 05/31/2022 ( Hospital Day [...] IR Biopsy Spine 07/20/2019 Bobby Marshall MD [facility] INTERVENTIONL RAD ??? IR VERTEBROPLASTY LUMBAR MULTIPLE LEVELS 07/20/2019 IR Vertebroplasty Lumbar Multiple Levels 07/20/2019 Bobby Marshall MD [facility] INTERVENTIONL RAD ??? IR VERTEBROPLASTY THORACIC SINGLE LEVEL 10/25/2020 IR Vertebroplasty Thoracic Single Level 10/25/2020 Matt Chisholm MD [facility] INTERVENTIONL RAD ??? PRO EMBLC/THRMBC FEMORAL POPLITEAL AORTO-ILIAC ARTERY Left 05/15/2022 EMBOLECTOMY OR THROMBECTOMY, FEMOROPOPLITEAL, AORTOILIAC ARTERY BY LEG INCISION (WRVU 19.48) performed by Fito Summers MD at [facility] MAIN OR No family history on file. [...] 11 ??? fluticasone propionate (FLONASE) 50 mcg/actuation Alpine, Suspension as needed. ??? fluorouraciL (EFUDEX) 5 [...] Gas) No results found for: PHART, PO2ART, MVW1ADE, JKR6SED Microbiology: N/A Pertinent radiology/diagnostic studies: Recent prior [...] Status: Full Arpita Valle MD, PGY-3 05/31/2022 [facility] # [id number] Attending Staff Admission [...] 05/31/2022 3:58 PM EDT Norepinephrine pulled from [facility] for soft BPs. Upon arrival to pt's [...] 10:50 AM EDT Pt brought to by trader Brittany Ramirez MD - 05/31/2022 10:40 [...] who have questions please contact the health customer care coordinator that requested your imaging first. Chest PA [...] who have questions please contact the health customer care coordinator that requested your imaging first. Course as [...] recommendations from Brittany Tavares MD Resident 05/31/22 [id number] Associated attestation - Regina Hinds MD - [...] soft blood pressures, MD made aware. 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 Patient reported blurry/hazy [...] original note were not included. [facility] [place] [address] INPATIENT CARDIOLOGY CONSULT NOTE Date of Consultation: 06/01/2022 Admit Date: 05/31/2022 Place of Service: IS86/IS86-A Referring Attending: REGINA HINDS COLEMAN W FRIEDMAN, HARLEY P Responsible Television Announcer: Dr. Rizo Hospital Day 1 day Reason for Consult: Antiplatelet/anticoagulation s/p pci and afib, with GI bleed HPI: Koko Zamora is a 81 y.o. male with a cardiac history significant for remote mitral valve repair (2000), pre-DM, HLD, significant alcohol use, tobacco use, Afib on xarelto, ischemic systolic heartfailure (recent [facility] 05/20/2022 with 2V disease OM1 and distal RCA, had ostial LCX and LCx stent) who presented to [facility] on 05/31/2022 for GI bleed. Patient presented [...] IR Biopsy Spine 07/20/2019 Bobby Marshall MD [facility] INTERVENTIONL RAD ??? IR VERTEBROPLASTY LUMBAR MULTIPLE LEVELS 07/20/2019 IR Vertebroplasty Lumbar Multiple Levels 07/20/2019 Bobby Marshall MD [facility] INTERVENTIONL RAD ??? IR VERTEBROPLASTY THORACIC SINGLE LEVEL 10/25/2020 IR Vertebroplasty Thoracic Single Level 10/25/2020 Matt Chisholm MD [facility] INTERVENTIONL RAD ??? PRO EMBLC/THRMBC FEMORAL POPLITEAL AORTO-ILIAC ARTERY Left 05/15/2022 EMBOLECTOMY OR THROMBECTOMY, FEMOROPOPLITEAL, AORTOILIAC ARTERY BY LEG INCISION (WRVU 19.48) performed by Fito Summers MD at [facility] MAIN OR ALLERGIES: Allergies Allergen Reactions ??? [...] time ??? fluticasone propionate (FLONASE) 50 mcg/actuation Alpine, Suspension 1 spray by Each Nare route [...] from 05/31/2022 in Intermediate Special Care Unit [facility] ED to Hosp-Admission (Discharged) from 05/15/2022 in Intermediate Cardiac Care Unit [facility] Weight 77.1 kg (170 lb) [...] 3.5 guiding catheter and a 3.5 Fr [facility] [place] [facility] 20 Mhz. Imaging was successful. Image [...] A premounted 2.75 x 30 mm Rudy [place] (AMPARO) was deployed with a maximum inflation [...] may require modification of this regimen. Consult [facility] Interventional Cardiology for questions. The 1 year [...] Hb drop. Unknown source. has had a [facility] with stent placed and revascularization of left [...] who have questions please contact the health customer care coordinator that requested your imaging first. [employer] 48 [...] who have questions please contact the health customer care coordinator that requested your imaging first. Recent Labs [...] on xarelto, ischemic systolic heart failure (recent [facility] 05/20/2022 with 2V disease OM1 and distal RCA, had ostial LCX and LCx stent), recent admission for acutelimb ischemia LLE, where he had left common femoral transverse arteriotomy and primary repair, thromboembolectomy of the SFA, profunda and common femoral artery with 4 compartment fasciotomies, who presented to [facility] on 05/31/2022 for GI bleed. Cardiology consulted [...] attestation for additional insight. Rossy Anaya MD [facility] Hospice Admitting Clerk, PGY-5 Inpatient Cardiology Consults Pager #[phone] Please check Qgenda for on-call cardiology consults [...] A&Ox 4. On room air. VSS. 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 Adequate urine output, urinal at bedside, flomax [...] surrogate would be surrogate decision maker per [place] surrogate decision making law. (Only good for 180 days) Any patient receiving care in [place] must abide by [place] law. The hierarchy for surrogate decision making [...] (i) The agent with financial power of waste handling technician or a conservator appointed in accordance with [...] walker - rolling Home Address confirmed as: [address] [place] [id number] Social & Family Supports: All names listed below confirmed with patient as current and correct Extended Emergency Contact Information Primary Emergency Contact: Ursula Zamora Address: [address] [place] [phone] [facility] Relation: Spouse Current Care Provided by: [...] *No Product type* / Secondary Insurance: [facility] Secondary Insurance? (Only Medicare A&B): Yes ; Prescription Coverage: Yes Preferred Pharmacy: [facility] [place], [place] - [address] [place] [address] [place] [id number] [place] Status: Patient is a : No Primary Care Provider: Bobby Das MD [phone] Patient/Caregiver Goals of Treatment: Patient plans to [...] with transition of care planning. ASH [place] Salt Maker [facility] Medicine/ Medical Specialties Pager- [phone] Plan [...] Operative Note Patient Name: Koko Zamora : [id number] MR#: [id number] Case Date: 05/31/2022 Surgeon: Surgeon(s) and Role: [...] stomach. He has had colonoscopies before in [place] - notes first ever he had 6 polyps removed but last colo 5 yrs ago was normal. He lives in [facility]. Currently light-headedness is improved. No fevers, [...] IR Biopsy Spine 07/20/2019 Bobby Marshall MD [facility] INTERVENTIONL RAD ??? IR VERTEBROPLASTY LUMBAR MULTIPLE LEVELS 07/20/2019 IR Vertebroplasty Lumbar Multiple Levels 07/20/2019 Bobby Marshall MD [facility] INTERVENTIONL RAD ??? IR VERTEBROPLASTY THORACIC SINGLE LEVEL 10/25/2020 IR Vertebroplasty Thoracic Single Level 10/25/2020 Matt Chisholm MD [facility] INTERVENTIONL RAD ??? PRO EMBLC/THRMBC FEMORAL POPLITEAL AORTO-ILIAC ARTERY Left 05/15/2022 EMBOLECTOMY OR THROMBECTOMY, FEMOROPOPLITEAL, AORTOILIAC ARTERY BY LEG INCISION (WRVU 19.48) performed by Fito Summers MD at [facility] MAIN OR SOCIAL HX: Social History Socioeconomic [...] sounds, tympanic to percussion RECTAL: performed with paid search marketing strategist present, no overt masses, fissures, external hemorrhoids, [...] who have questions please contact the health customer care coordinator that requested your imaging first. Abdomen & [...] MD [facility] GASTROENTEROLOGY DEPT [place], [place] [address] (Wo rk) 09/05/2022 Appointment Cardiology Trinity Reid MD [facility] CARDIOLOGY [place], [place] [address] (Wo rk) 09/05/2022 Office Visit Cardiology Trinity Reid MD [facility] CARDIOLOGY [place], [place] [address] (Wo rk) documented as of [...] P athologist Signature Neutrophils % 61.3 % [facility] LABORATORY Neutr Abs (ANC) 4.44 1.70 - [facility] 6.10 [facility] x10(3)/[facility] LABORATORY Lymphocytes % 25.2 % [facility] Lymphocytes Abs 1.8 0.9 - 3.2 [facility] x10(3)/[facility] LABORATORY Monocytes % 10.0 % [facility] Monocyte Abs 0.7 0.3 - 0.9 [facility] x10(3)/[facility] LABORATORY Eosinophils % 2.1 % [facility] Eosinophils Abs 0.2 0.0 - 0.4 [facility] x10(3)/[facility] LABORATORY Basophils % 0.7 % [facility] Basophils Abs 0.0 0.0 - 0.1 [facility] x10(3)/[facility] LABORATORY Immature Gran % 0.70 % [facility] Comment: Immature granulocytes(IG's)percentage an d absolute count will include metamyelocytes, myelocytes, and promyelo cytes. Blood smears from CBCs yielding IG's will be scanned manually for concor dance. If this scan disagrees with the automated IG or if promyelocytes are not ed, a manual differential will be performed. Rain Gran Abs 0.05 (H) 0.00 - 0.04 x10(3)/[facility] LABORATORY Specimen Anatomical Collection Method Collection Time Receive d Time (Source) Location / / Volume Laterality Blood 06/02/2022 8:20 AM 8:25 EDT AM EDT Resulting Agency Comment Spec In Lab Kurt Ames MD HEMATOLOGY ORDERABLES Performing Organization Address City/State/[place] [address] (ABNORMAL) Hemogram (06/02/2022 8:20 AM EDT) Analysis Performed At Patho logist Time Signature WBC 7.2 4.0 - 9.5 [facility] x10(3)/[facility] LABORATORY RBC 2.74 (L) 4.58 - [facility] 5.54 [facility] x10(6)/[facility] LABORATORY Hemoglobin 8.7 (L) 13.7 - [place] 16.5 g/dL [facility] LABORATORY Hematocrit 25.7 (L) 40.5 - [place] 48.5 % [facility] LABORATORY MCV 93.8 (H) 82.9 - [place] 93.1 [facility] LABORATORY MCH 31.8 27.5 - [place] 32.1 pg [facility] LABORATORY MCHC 33.9 32.0 - [place] 35.7 g/dL [facility] LABORATORY Platelets 260 145 - 357 [facility] x10(3)/[facility] LABORATORY RDWSD 51.0 (H) 36.0 - [place] 45.0 [facility] LABORATORY RDWCV 14.9 (H) 11.4 - [facility] X[facility] 13.8 % [facility] LABORATORY MPV 10.0 7.6 - 12.9 [facility] LABORATORY nRBC % Auto 0.0 % [facility] LABORATORY nRBC Abs Auto 0.000 0.000 - [facility] [place] 0.000 [facility] x10(3)/[facility] LABORATORY Specimen Anatomical Collection Method Collection Time Receive d Time (Source) Location / / Volume Laterality Blood 06/02/2022 8:20 AM 8:25 EDT AM EDT Resulting Agency Comment Spec In Lab Kurt Ames MD HEMATOLOGY ORDERABLES Performing Organization Address City/State/[place] [address] Heparin (unfractionated) Level (06/02/2022 6:30 AM EDT) P athologist Signature Heparin UFH 0.39 IU/mL [facility] LABORATORY Comment: Heparin (anti-Xa) levels should be [...] Victor MD HEMATOLOGY ORDERABLES Performing Organization Address City/[facility]/ZIP Code Phon e Number [address] Heparin (unfractionated) Level (06/02/2022 12:30 AM EDT) athologist Signature Heparin UFH 0.81 IU/mL [facility] LABORATORY Comment: Heparin (anti-Xa) levels should be [...] Victor MD HEMATOLOGY ORDERABLES Performing Organization Address City/[facility]/[place] [address] Magnesium (06/02/2022 12:30 AM EDT) P athologist Signature Magnesium 0.83 0.69 - 1.07 [facility] mmol/L [facility] LABORATORY Specimen Anatomical Collection Method Collection Time Receive d Time (Source) Location / / Volume Laterality Blood 06/02/2022 12:30 06/02/2022 AM EDT 12:40 AM EDT Resulting Agency Comment Spec In Lab Mahendra Victor MD CHEMISTRY ORDERABLES Performing Organization Address City/State/[place] [address] (ABNORMAL) Basic Metabolic Panel (non-fasting) (06/02/2022 12:30 AM EDT) P athologist Signature Glucose Lvl 151 65 - 199 [facility] mg/dL [facility] LABORATORY Comment: Diabetes: >=200 mg/dL plus symp toms BUN 12 10 - 20 mg/dL [facility] LABORATORY Creatinine 0.71 (L) 0.80 - [...] 108 (H) 98 - 107 mmol/L [facility]OR[facility]ORY CO2 24 22 - 31 mmol/L [facility] Anion Gap 10 5 - 15 mmol/L [facility] LABORATORY Calcium 8.1 (L) 8.5 - 10.5 mg/dL [facility] LABORATORY Estimated GFR 93 >=60 mL/min/1.73 m?? [facility] Comment: This patient's estimated GFR [...] Organization Address City/State/[place] [address] (ABNORMAL) Differential, Automated (06/01/2022 7:29 PM EDT) athologist Signature Neutrophils % 68.8 % [facility] LABORATORY Neutr Abs (ANC) 5.34 1.70 - [facility] 6.10 [facility] x10(3)/[facility] LABORATORY Lymphocytes % 19.6 % [facility] LABORATORY Lymphocytes Abs 1.5 0.9 - 3.2 [facility] x10(3)/[facility] LABORATORY Monocytes % 8.1 % [facility]OR[facility]ORY Monocyte Abs 0.6 0.3 - 0.9 [facility] x10(3)/[facility] LABORATORY Eosinophils % 1.8 % [facility] LABORATORY Eosinophils Abs 0.1 0.0 - 0.4 [facility] x10(3)/[facility] LABORATORY Basophils % 0.8 % [facility] LABORATORY Basophils Abs 0.1 0.0 - 0.1 [facility] x10(3)/[facility] LABORATORY Immature Gran % 0.90 % [facility] Comment: Immature granulocytes(IG's)percentage an d absolute count will include metamyelocytes, myelocytes, and promyelo cytes. Blood smears from CBCs yielding IG's will be scanned manually for concor dance. If this scan disagrees with the automated IG or if promyelocytes are not ed, a manual differential will be performed. Rain Gran Abs 0.07 (H) 0.00 - 0.04 x10(3)/[facility] LABORATORY Specimen Anatomical Collection Method Collection Time Receive d Time (Source) Location / / Volume Laterality Blood 06/01/2022 7:29 PM 2 7:29 EDT PM EDT Resulting Agency Comment Spec In Lab Kurt Ames MD HEMATOLOGY ORDERABLES Performing Organization Address City/State/[place] [address] (ABNORMAL) Hemogram (06/01/2022 7:29 PM EDT) Analysis Performed At Patho logist Time Signature WBC 7.8 4.0 - 9.5 [facility] x10(3)/[facility] LABORATORY RBC 2.65 (L) 4.58 - [facility] [place] 5.54 [facility] x10(6)/[facility] LABORATORY Hemoglobin 8.3 (L) 13.7 - [facility] g/dL [facility] LABORATORY Hematocrit 24.8 (L) 40.5 - [facility] 48.5 % [facility] LABORATORY MCV 93.6 (H) 82.9 - [facility] 93.1 [facility] LABORATORY MCH 31.3 27.5 - [place] 32.1 pg [facility] LABORATORY MCHC 33.5 32.0 - [place] 35.7 g/dL [facility] LABORATORY Platelets 263 145 - 357 [facility] x10(3)/[facility] LABORATORY RDWSD 52.8 (H) 36.0 - [facility] 45.0 [facility] LABORATORY RDWCV 15.4 (H) 11.4 - [facility] 13.8 % [facility] LABORATORY MPV 10.4 7.6 - 12.9 [facility] nRBC % Auto 0.0 % [facility] LABORATORY nRBC Abs Auto 0.000 0.000 - [facility] 0.000 [facility] x10(3)/[facility] LABORATORY Specimen Anatomical Collection Method Collection Time Receive d Time (Source) Location / / Volume Laterality Blood 06/01/2022 7:29 PM 2 7:29 EDT PM EDT Resulting Agency Comment Spec In Lab Kurt Ames MD HEMATOLOGY ORDERABLES Performing Organization Address City/State/ZIP Code Phon e Number [address] Heparin (unfractionated) Level (06/01/2022 7:29 PM EDT) P athologist Signature Heparin UFH 0.81 IU/mL [facility] LABORATORY Comment: Heparin (anti-Xa) levels should be [...] Organization Address City/State/ZIP Code Phon e Number [address] (ABNORMAL) Heparin (unfractionated) Level (06/01/2022 11:32 AM EDT) Patholo gist Method Time Signature Heparin UFH 1.05 IU/mL [facility] (Critical) [facility] LABORATORY Comment: Critical Result called by [...] Organization Address City/State/[place] [address] (ABNORMAL) Differential, Automated (06/01/2022 5:56 AM EDT) [facility] Hospital Method Time Signature Neutrophils % 62.7 % [facility] LABORATORY Neutr Abs (ANC) 6.11 (H) 1.70 - [facility] 6.10 [facility] x10(3)/[facility] LABORATORY Lymphocytes % 23.5 % [facility] Lymphocytes Abs 2.3 0.9 - 3.2 [facility] x10(3)/[facility] LABORATORY Monocytes % 10.0 % [facility] Monocyte Abs 1.0 (H) 0.3 - 0.9 [facility] x10(3)/[facility] LABORATORY Eosinophils % 2.2 % [facility] Eosinophils Abs 0.2 0.0 - 0.4 [facility] x10(3)/[facility] LABORATORY Basophils % 0.9 % [facility] Basophils Abs 0.1 0.0 - 0.1 [facility] x10(3)/[facility] LABORATORY Immature Gran % 0.70 % [facility] Comment: Immature granulocytes(IG's)percentage an d absolute count will include metamyelocytes, myelocytes, and promyelo cytes. Blood smears from CBCs yielding IG's will be scanned manually for concor dance. If this scan disagrees with the automated IG or if promyelocytes are not ed, a manual differential will be performed. Rain Gran Abs 0.07 (H) 0.00 - 0.04 x10(3)/[facility] LABORATORY Specimen Anatomical Collection Method Collection Time Receive d Time (Source) Location / / Volume Laterality Blood 06/01/2022 5:56 AM 2 6:05 EDT AM EDT Resulting Agency Comment Spec In Lab Arpita Valle MD HEMATOLOGY ORDERABLES Performing Organization Address City/State/[place] [address] (ABNORMAL) Hemogram (06/01/2022 5:56 AM EDT) Analysis Performed At Patho logist Time Signature WBC 9.7 (H) 4.0 - 9.5 [facility] x10(3)/[facility] LABORATORY RBC 2.83 (L) 4.58 - [facility] 5.54 [facility] x10(6)/[facility] LABORATORY Hemoglobin 9.0 (L) 13.7 - [facility] 16.5 g/dL [facility] LABORATORY Hematocrit 26.7 (L) 40.5 - [facility] 48.5 % [facility] LABOR[facility]ORY MCV 94.3 (H) 82.9 - [facility] 93.1 [facility] LABORATORY MCH 31.8 27.5 - [facility] 32.1 pg [facility] LABORATORY MCHC 33.7 32.0 - [facility] 35.7 g/dL [facility] LABORATORY Platelets 250 145 - 357 [facility] x10(3)/[facility] LABORATORY RDWSD 54.3 (H) 36.0 - [facility] 45.0 [facility] LABORATORY RDWCV 15.9 (H) 11.4 - [facility] 13.8 % [facility] LABORATORY MPV 10.5 7.6 - 12.9 [facility] LABORATORY nRBC % Auto 0.0 % [facility] nRBC Abs Auto 0.000 0.000 - [facility] 0.000 [facility] x10(3)/[facility] LABORATORY Specimen Anatomical Collection Method Collection Time Receive d Time (Source) Location / / Volume Laterality Blood 06/01/2022 5:56 AM 2 6:05 EDT AM EDT Resulting Agency Comment Spec In Lab Arpita Valle MD HEMATOLOGY ORDERABLES Performing Organization Address City/State/[place] [address] Heparin (unfractionated) Level (06/01/2022 4:30 AM EDT) P athologist Signature Heparin UFH 0.68 IU/mL [facility] LABORATORY Comment: Heparin (anti-Xa) levels should be [...] Victor MD HEMATOLOGY ORDERABLES Performing Organization Address City/[facility]/[place] [address] (ABNORMAL) Urinalysis with reflex Culture (06/01/2022 4:00 AM EDT) Patholo gist Method Time Signature Glucose UA 500 Negative [facility] (Critical) mg/dL [facility] LAB[facility]ATORY Comment: Urinalysis result NOT critical without a combination of Glucose greater than or equal to 500 mg/dL AND Ketones greate r than or equal to 80 mg/dL Protein UA Negative Negative mg/dL [facility] Bilirubin UA Negative Negative mg/dL [facility] LABORATORY Comment: Clinical correlation required for [...] CENTER LABORATORY Blood UA Negative Negative mg/dL [facility] Ketones UA Negative Negative mg/dL [facility] Nitrite UA Negative Negative [facility] LABOR[facility]ORY Leukocytes UA Negative Negative [facility] LABORATORY Appearance UA Clear Clear [facility] Spec Barling UA >=1.030 (A) 1.005 - 1.030 [facility] Color UA Yellow Yellow [facility] LABORATORY Culture Reflexed No [facility] LABORATORY Specimen Anatomical Collection Method Collection Time Receive d Time (Source) Location / / Volume Laterality Clean Catch 06/01/2022 4:00 AM 2 4:26 Urine EDT AM EDT Resulting Agency Comment Spec In Lab Mahendra Victor MD URINE ORDERABLES Performing Organization Address City/[facility]/ZIP Code Phon e Number [address] Magnesium (06/01/2022 1:00 AM EDT) athologist Signature Magnesium 0.93 0.69 - 1.07 [facility] mmol/L [facility] LABORATORY Specimen Anatomical Collection Method Collection Time Receive d Time (Source) Location / / Volume Laterality Blood 06/01/2022 1:00 AM 2 1:37 EDT AM EDT Resulting Agency Comment Spec In Lab Mahendra Victor MD CHEMISTRY ORDERABLES Performing Organization Address City/[facility] Phon e Number [address] (ABNORMAL) Basic Metabolic Panel (non-fasting) (06/01/2022 1:00 AM EDT) athologist Signature Glucose Lvl 148 65 - 199 [facility] mg/dL [facility] LABORATORY Comment: Diabetes: >=200 mg/dL plus symp toms BUN 23 (H) 10 - 20 mg/dL [facility]OR[facility]ORY Creatinine 0.78 (L) 0.80 - [...] 108 (H) 98 - 107 mmol/L [facility] CO2 24 22 - 31 mmol/L [facility] Anion Gap 9 5 - 15 mmol/L [facility] Calcium 8.6 8.5 - 10.5 mg/dL [facility] LABORATORY Estimated GFR 91 >=60 mL/min/1.73 m?? [facility] Comment: This patient's estimated GFR [...] Organization Address City/State/[place] [address] (ABNORMAL) Differential, Automated (06/01/2022 12:00 AM EDT) P athologist Signature Neutrophils % 64.6 % [facility] Neutr Abs (ANC) 5.60 1.70 - [facility] 6.10 [facility] x10(3)/[facility] LABORATORY Lymphocytes % 22.4 % [facility] Lymphocytes Abs 1.9 0.9 - 3.2 [facility] x10(3)/[facility] LABORATORY Monocytes % 9.5 % [facility] Monocyte Abs 0.8 0.3 - 0.9 [facility] x10(3)/[facility] LABORATORY Eosinophils % 2.1 % [facility] Eosinophils Abs 0.2 0.0 - 0.4 [facility] x10(3)/[facility] LABORATORY Basophils % 0.6 % [facility] Basophils Abs 0.0 0.0 - 0.1 [facility] x10(3)/[facility] LABORATORY Immature Gran % 0.80 % [facility] Comment: Immature granulocytes(IG's)percentage an d absolute count will include metamyelocytes, myelocytes, and promyelo cytes. Blood smears from CBCs yielding IG's will be scanned manually for concor dance. If this scan disagrees with the automated IG or if promyelocytes are not ed, a manual differential will be performed. Rain Gran Abs 0.07 (H) 0.00 - 0.04 x10(3)/[facility] LABORATORY Specimen (Source) Anatomical Collection Method Collection Time Re ceived Time Location / / Volume Laterality Blood 06/01/2022 06/01/2022 12:1 0 AM EDT Resulting Agency Comment Spec In Lab Arpita Valle MD HEMATOLOGY ORDERABLES Performing Organization Address City/State/[place] [address] (ABNORMAL) Hemogram (06/01/2022 12:00 AM EDT) Analysis Performed At Patho logist Time Signature WBC 8.7 4.0 - 9.5 [facility] x10(3)/[facility] LABORATORY RBC 2.77 (L) 4.58 - [facility] 5.54 [facility] x10(6)/[facility] LABORATORY Hemoglobin 8.6 (L) 13.7 - [facility] 16.5 g/dL [facility] LABORATORY Hematocrit 25.7 (L) 40.5 - [facility] 48.5 % [facility] LABORATORY MCV 92.8 82.9 - [facility] 93.1 [facility] LABORATORY MCH 31.0 27.5 - [facility] 32.1 pg [facility] LABORATORY MCHC 33.5 32.0 - [facility] 35.7 g/dL [facility] LABORATORY Platelets 260 145 - 357 [facility] x10(3)/[facility] LABORATORY RDWSD 51.9 (H) 36.0 - [facility] 45.0 [facility] LABORATORY RDWCV 15.5 (H) 11.4 - [facility] 13.8 % [facility] LABORATORY MPV 10.4 7.6 - 12.9 [facility] LABORATORY nRBC % Auto 0.0 % [facility]OR[facility]ORY nRBC Abs Auto 0.000 0.000 - [facility] 0.000 [facility] x10(3)/[facility] LABORATORY Specimen (Source) Anatomical Collection Method Collection Time Re ceived Time Location / / Volume Laterality Blood 06/01/2022 06/01/2022 12:1 0 AM EDT Resulting Agency Comment Spec In Lab Arpita Valle MD HEMATOLOGY ORDERABLES Performing Organization Address City/State/[place] [address] (ABNORMAL) Differential, Automated (05/31/2022 9:17 PM EDT) P athologist Signature Neutrophils % 59.6 % [facility] LABOR[facility]ORY Neutr Abs (ANC) 3.98 1.70 - [facility] 6.10 [facility] x10(3)/[facility] LABORATORY Lymphocytes % 27.5 % [facility]OR[facility]ORY Lymphocytes Abs 1.8 0.9 - 3.2 [facility] x10(3)/[facility] LABORATORY Monocytes % 9.1 % [facility] Monocyte Abs 0.6 0.3 - 0.9 [facility] x10(3)/[facility] LABORATORY Eosinophils % 2.4 % [facility]OR[facility] Eosinophils Abs 0.2 0.0 - 0.4 [facility] x10(3)/[facility] LABORATORY Basophils % 0.7 % [facility] Basophils Abs 0.0 0.0 - 0.1 [facility] x10(3)/[facility] LABORATORY Immature Gran % 0.70 % [facility] Comment: Immature granulocytes(IG's)percentage an d absolute count will include metamyelocytes, myelocytes, and promyelo cytes. Blood smears from CBCs yielding IG's will be scanned manually for concor dance. If this scan disagrees with the automated IG or if promyelocytes are not ed, a manual differential will be performed. Rain Gran Abs 0.05 (H) 0.00 - 0.04 x10(3)/[facility] LABORATORY Specimen Anatomical Collection Method Collection Time Receive d Time (Source) Location / / Volume Laterality Blood 05/31/2022 9:17 PM 9:25 EDT PM EDT Resulting Agency Comment Spec In Lab Arpita Valle MD HEMATOLOGY ORDERABLES Performing Organization Address City/State/[place] [address] (ABNORMAL) Hemogram (05/31/2022 9:17 PM EDT) Analysis Performed At Patho logist Time Signature WBC 6.7 4.0 - 9.5 [facility] x10(3)/[facility] LABORATORY RBC 2.74 (L) 4.58 - [facility] 5.54 [facility] x10(6)/[facility] LABORATORY Hemoglobin 8.5 (L) 13.7 - [facility] 16.5 g/dL [facility] LABORATORY Hematocrit 25.7 (L) 40.5 - [facility] 48.5 % [facility] LABORATORY MCV 93.8 (H) 82.9 - [facility] 93.1 fL [facility] LABORATORY MCH 31.0 27.5 - [facility] 32.1 pg [facility] LABORATORY MCHC 33.1 32.0 - [facility] 35.7 g/dL [facility] LABORATORY Platelets 233 145 - 357 [facility] x10(3)/[facility] LABORATORY RDWSD 51.9 (H) 36.0 - [facility] 45.0 [facility] RDWCV 15.3 (H) 11.4 - [facility] 13.8 % [facility] MPV 10.3 7.6 - 12.9 [facility] LABORATORY nRBC % Auto 0.0 % [facility] nRBC Abs Auto 0.000 0.000 - [facility] 0.000 [facility] x10(3)/[facility] LABORATORY Specimen Anatomical Collection Method Collection Time Receive d Time (Source) Location / / Volume Laterality Blood 05/31/2022 9:17 PM 9:25 EDT PM EDT Resulting Agency Comment Spec In Lab Arpita Valle MD HEMATOLOGY ORDERABLES Performing Organization Address City/State/[place] [address] Transfuse RBC (05/31/2022 7:36 PM EDT) Regina Hinds MD NURSING TREATMENT ORDERABLES - BLOOD ADMIN Transfuse RBC (05/31/2022 7:36 PM EDT) Regina Hinds MD NURSING TREATMENT ORDERABLES - BLOOD ADMIN UPPER GI ENDOSCOPY (05/31/2022 3:37 PM EDT) Component Value Ref Test Analysis Performed At [facility] Range Method Time Signature UPPER GI [facility]OVATION ENDOSCOPY Endoscopy Procedure Date: 05/31/2022 3:37 PM ? Patient Name: Koko Zamora ? Date of : 1940 ? Age: 81 ? Order #: [id number] ? Instrument Name: [id number] ? Procedure: ? Upper GI endoscopy Indications: [...] Procedure Code(s): ? --- Professional --- ? 10104, Esophagogastroduode noscopy, ? flexible, transoral; with control [...] stomach ? and duodenum CPT copyright 2021 [employer]. All rights reserved. The codes documented in this report are preliminary and upon screen printing machine operator helper review may be revised to meet [...] who have questions please contact the health customer care coordinator that requested your imaging first. ? Narrative 05/31/2022 2:39 PM EDT EXAMINATION: CT ABDOMEN AND PELVIS WWO CONTRAST (GI BLEED) CLINICAL HISTORY: Significant Hb drop. U nknown source. has had a [facility] with stent placed and revascularization of left low er extremity within the past two weeks, recently on anticoagulation Unknown source of bleeding TECHNIQUE: Helical CT of the abdomen and pelvis was performed before and after the intravenous administration contrast utilizing GI bleed protocol. Administered 125.0 ml of OMNIPAQUE 350.0 0 mg/ml. Oral contrast was not administered. COMPARISON: 05/15/2022 from [facility] FINDINGS: GI Tract: Pre-contrast: No bowel [...] enlarged lymph nodes. Vasculature: Patent common iliac, head usher al iliac, and common femoral arteries bilaterally. [...] contrast was not administered. COMPARISON: 05/15/2022 from [facility] FINDINGS: GI Tract: Pre-contrast: No bowel [...] enlarged lymph nodes. Vasculature: Patent common iliac, head usher al iliac, and common femoral arteries bilaterally. [...] ho have questions please contact the health customer care coordinator that requested your imaging first. Regina Hinds MD G CT ORDERABLES Type and Screen Validity (05/31/2022 1:43 PM EDT) [facility] gist Method Time Signature T&S only valid [facility] at [facility] LABORATORY Comment: This Type and Screen result is only valid at the [facility] Specimen Anatomical Collection Method Collection Time Receive d Time (Source) Location / / Volume Laterality Blood 05/31/2022 1:43 PM 2 1:57 EDT PM EDT Resulting Agency Comment Spec In Lab Regina Hinds MD BLOOD BANK ORDERABLES Performing Organization Address City/State/[place] [address] ABORH Recheck Status (05/31/2022 1:43 PM EDT) [facility] Method Time Signature ABORH Type Completed [facility] LABORATORY Specimen Anatomical Collection Method Collection Time Receive d Time (Source) Location / / Volume Laterality Blood 05/31/2022 1:43 PM 2 1:57 EDT PM EDT Resulting Agency Comment Spec In Lab Regina Hinds MD BLOOD BANK ORDERABLES Performing Organization Address City/[facility]/[place] [address] Antibody screen (05/31/2022 1:43 PM EDT) [facility] Signature Ab Screen Negative [facility] LABORATORY Expires at 06/03/2022 [facility] [id number] on: [facility] LABORATORY Specimen Anatomical Collection Method Collection Time Receive d Time (Source) Location / / Volume Laterality Blood 05/31/2022 1:43 PM 2 1:57 EDT PM EDT Resulting Agency Comment Spec In Lab Regina Hinds MD BLOOD BANK ORDERABLES Performing Organization Address City/[facility]/[place] [address] ABO/Rh Typing (05/31/2022 1:43 PM EDT) P athologist Signature ABORh Type O Pos [facility] LABORATORY Specimen Anatomical Collection Method Collection Time Receive d Time (Source) Location / / Volume Laterality Blood 05/31/2022 1:43 PM 2 1:57 EDT PM EDT Resulting Agency Comment Spec In Lab Regina Hinds MD BLOOD BANK ORDERABLES Performing Organization Address City/[facility]/[place] [address] Prepare RBC (05/31/2022 1:35 PM EDT) P athologist Signature Dispensed? Yes [facility] LABOR[facility]ORY Specimen Anatomical Collection Method Collection Time Receive d Time (Source) Location / / Volume Laterality Blood 05/31/2022 1:35 PM 2 1:30 EDT PM EDT Regina Hinds MD BLOOD BANK ORDERABLES Performing Organization Address City/[facility] [place] [address] Prepare RBC (05/31/2022 1:25 PM EDT) P athologist Signature Dispensed? Yes [facility] LABORATORY Specimen Anatomical Collection Method Collection Time Receive d Time (Source) Location / / Volume Laterality Blood 05/31/2022 1:25 PM 2 1:23 EDT PM EDT Regina Hinds MD BLOOD BANK ORDERABLES Performing Organization Address [facility] Phon e Number [address] (ABNORMAL) Differential, Automated (05/31/2022 12:44 PM EDT) P athologist Signature Neutrophils % 62.0 % [facility] LABORATORY Neutr Abs (ANC) 4.71 1.70 - [facility] 6.10 [facility] x10(3)/[facility] LABORATORY Lymphocytes % 24.1 % [facility] LABORATORY Lymphocytes Abs 1.8 0.9 - 3.2 [facility] x10(3)/[facility] LABORATORY Monocytes % 10.8 % [facility] LABORATORY Monocyte Abs 0.8 0.3 - 0.9 [facility] x10(3)/[facility] LABORATORY Eosinophils % 1.6 % [facility] LABORATORY Eosinophils Abs 0.1 0.0 - 0.4 [facility] x10(3)/[facility] LABORATORY Basophils % 0.7 % [facility] LABORATORY Basophils Abs 0.0 0.0 - 0.1 [facility] x10(3)/[facility] LABORATORY Immature Gran % 0.80 % [facility] LABORATORY Comment: Immature granulocytes(IG's)percentage an d absolute count will include metamyelocytes, myelocytes, and promyelo cytes. Blood smears from CBCs yielding IG's will be scanned manually for concor dance. If this scan disagrees with the automated IG or if promyelocytes are not ed, a manual differential will be performed. Rain Gran Abs 0.06 (H) 0.00 - 0.04 x10(3)/[facility] LABORATORY Specimen Anatomical Collection Method Collection Time Receive d Time (Source) Location / / Volume Laterality Blood 05/31/2022 12:44 05/31/2022 PM EDT 12:57 PM EDT Resulting Agency Comment Spec In Lab Brittany Ramirez MD HEMATOLOGY ORDERABLES Performing Organization Address City/State/[place] [address] (ABNORMAL) Hemogram (05/31/2022 12:44 PM EDT) Analysis Performed At Patho logist Time Signature WBC 7.6 4.0 - 9.5 [facility] x10(3)/[facility] LABORATORY RBC 2.11 (L) 4.58 - [facility] 5.54 [facility] x10(6)/[facility] LABORATORY Hemoglobin 6.9 (L) 13.7 - [facility] 16.[facility] g/dL [facility] LABORATORY Hematocrit 20.8 (L) 40.5 - [facility] 48.5 % [facility] LABORATORY MCV 98.6 (H) 82.9 - [facility] 93.1 [facility] LABORATORY MCH 32.7 (H) 27.5 - [facility] 32.1 pg [facility] LABORATORY MCHC 33.2 32.0 - [facility] 35.7 g/dL [facility] LABORATORY Platelets 255 145 - 357 [facility] x10(3)/[facility] LABORATORY RDWSD 47.7 (H) 36.0 - [facility] 45.0 [facility] LABORATORY RDWCV 13.4 11.4 - [facility] 13.8 % [facility] LABORATORY MPV 10.7 7.6 - 12.9 [facility] LABORATORY nRBC % Auto 0.0 % [facility] LABORATORY nRBC Abs Auto 0.000 0.000 - [facility] 0.000 [facility] x10(3)/[facility] LABORATORY Specimen Anatomical Collection Method Collection Time Receive d Time (Source) Location / / Volume Laterality Blood 05/31/2022 12:44 05/31/2022 PM EDT 12:57 PM EDT Resulting Agency Comment Spec In Lab Brittany Ramirez MD HEMATOLOGY ORDERABLES Performing Organization Address City/State/[place] [address] [address] (ABNORMAL) BLOOD GAS 2 VENOUS (05/31/2022 11:24 AM EDT) P athologist Signature pH Marco Antonio 7.38 7.32 - [facility] 7.42 [facility] pCO2 Marco Antonio 40 (L) 41 - 51 [facility] LABORATORY pO2 Marco Antonio 18 (L) 25 - 40 [facility] LABORATORY HCO3 Marco Antonio 23.3 mmol/L [facility] LABOR[facility] BE Marco Antonio -1.8 mmol/L [facility] Hgb Blood Gas 7.0 (L) 13.7 - [facility] 16.5 g/dL [facility] O2HB Marco Antonio 24.3 % [facility] COHB Marco Antonio 1.4 % [facility] Comment: Nonsmokers: 0.5-1.5% COHB Smokers: Variable, but usually less than 10% Toxic: 20-30% COHB Lethal: Greater than 60% COHB METHB Marco Antonio 1.7 (H) <=1.5 % [facility] LABORATORY Na Whole Blood 137 135 - 145 mmol/L [facility] K Whole Blood 3.9 3.5 - 5.0 mmol/L [facility] LABORATORY Comment: Please note: Patients with WBC >100,000 may have falsely elevated Potassium levels. Contact the Clinical Chemistry L aboratory if there are any questions. ICa Whole Blood 1.19 1.15 - 1.33 mmol/L [facility] LABOR[facility] Comment: Note: ??Total bilirubin higher than 20 m g/dL may lead to falsely low ionized calcium. CL Whole Blood 107 98 - 107 mmol/L [facility] LABORATORY Gluc Whole Bld 204 (H) 65 - 199 mg/dL [facility]OR[facility] Comment: Diabetes: >=200 mg/dL plus symp toms Lactate WB 1.4 0.5 - 2.2 mmol/L [facility] LABORAT[facility] BGas Source Venous [facility] LABORATORY Specimen Anatomical Collection Method Collection Time Receive d Time (Source) Location / / Volume Laterality Blood 05/31/2022 11:24 05/31/2022 AM EDT 11:24 AM EDT Regina Hinds MD CHEMISTRY ORDERABLES Performing Organization Address City/[facility]/ZIP Code Phon e Number [address] TSH Mathews (05/31/2022 11:20 AM EDT) P athologist Signature TSH 1.67 0.27 - 4.20 [facility] mcIU/mL [facility] Comment: Reference Interval (mcIU/mL): Females: ??First Trimester: 0.23-3.88 ??Second Trimester: 0.22-3.90 ??Third Trimester: 0.44-4.66 Specimen Anatomical Collection Method Collection Time Receive d Time (Source) Location / / Volume Laterality Blood 05/31/2022 11:20 05/31/2022 AM EDT 11:28 AM EDT Resulting Agency Comment Spec In Lab Regina Hinds MD CHEMISTRY ORDERABLES Performing Organization Address City/[facility]/ZIP Code Phon e Number [address] XR Chest PA & [...] who have questions please contact the health customer care coordinator that requested your imaging first. ? Narrative [...] ho have questions please contact the health customer care coordinator that requested your imaging first. Regina Hinds MD IMG DX ORDERABLES Lipase (05/31/2022 10:50 AM EDT) athologist Signature Lipase 41 0 - 60 [place] unit/L [facility] Specimen Anatomical Collection Method Collection Time Receive d Time (Source) Location / / Volume Laterality Blood Venous Draw / 05/31/2022 10:50 05/31/2022 Unknown AM EDT 11:11 AM EDT Resulting Agency Comment Spec In Lab Zain Champion MD CHEMISTRY ORDERABLES Performing Organization Address City/State/ZIP Code Phon e Number [place] [phone] (ABNORMAL) Hepatic Function Panel (05/31/2022 10:50 AM EDT) Analysis Performed At Patho logist Time Signature Total Protein 6.4 6.1 - 8.0 [place] g/dL [facility] Albumin 4.1 3.2 - 5.2 [place] g/dL [facility] AST 24 0 - 39 [place] unit/L [facility] ALT 44 0 - 55 [place] unit/L [facility] Alk Phos 63 40 - 130 [place] unit/L [facility] Total <0.2 (L) 0.2 - 1.3 [place] Bilirubin mg/dL [facility] Bili, Direct 0.1 0.0 - 0.3 [place] mg/dL [facility] Specimen Anatomical Collection Method Collection Time Receive d Time (Source) Location / / Volume Laterality Blood Venous Draw / 05/31/2022 10:50 05/31/2022 Unknown AM EDT 11:11 AM EDT Resulting Agency Comment Spec In Lab Zain Champion MD CHEMISTRY ORDERABLES Performing Organization Address City/[facility]/ZIP Code Phon e Number [address] Blue Tube HOLD (05/31/2022 10:50 AM EDT) athologist Signature Blue Hold Sample in [facility] LABORATORY Specimen Anatomical Collection Method Collection Time Receive d Time (Source) Location / / Volume Laterality Blood Venous Draw / 05/31/2022 10:50 05/31/2022 Unknown AM EDT 11:05 AM EDT Brittany Ramirez MD HEMATOLOGY ORDERABLES Performing Organization Address City/[facility]/ZIP Code Phon e Number [address] (ABNORMAL) Differential, Automated (05/31/2022 10:50 AM EDT) athologist Signature Neutrophils % 66.9 % [facility] LABORATORY Neutr Abs (ANC) 5.58 1.70 - [facility] 6.10 [facility] x10(3)/[facility] LABORATORY Lymphocytes % 22.2 % [facility] LABORATORY Lymphocytes Abs 1.8 0.9 - 3.2 [facility] x10(3)/[facility] LABORATORY Monocytes % 7.8 % [facility] LABORATORY Monocyte Abs 0.6 0.3 - 0.9 [facility] x10(3)/[facility] LABORATORY Eosinophils % 1.2 % [facility] LABORATORY Eosinophils Abs 0.1 0.0 - 0.4 [facility] x10(3)/[facility] LABORATORY Basophils % 0.7 % [facility] LABORATORY Basophils Abs 0.1 0.0 - 0.1 [facility] x10(3)/[facility] LABORATORY Immature Gran % 1.20 % [facility] LAB[facility] Comment: Immature granulocytes(IG's)percentage an d absolute count will include metamyelocytes, myelocytes, and promyelo cytes. Blood smears from CBCs yielding IG's will be scanned manually for tracy armstrong. If this scan disagrees with the automated IG or if promyelocytes are not ed, a manual differential will be performed. Rain Gran Abs 0.10 (H) 0.00 - 0.04 x10(3)/[facility] LABORATORY Specimen Anatomical Collection Method Collection Time Receive d Time (Source) Location / / Volume Laterality Blood 05/31/2022 10:50 05/31/2022 AM EDT 11:03 AM EDT Resulting Agency Comment Spec In Lab Brittany Ramirez MD HEMATOLOGY ORDERABLES Performing Organization Address City/State/[place] [address] (ABNORMAL) Hemogram (05/31/2022 10:50 AM EDT) Analysis Performed At Patho logist Time Signature WBC 8.3 4.0 - 9.5 [facility] x10(3)/[facility] LABORATORY RBC 2.26 (L) 4.58 - [facility] 5.54 [facility] x10(6)/[facility] LABORATORY Hemoglobin 7.4 (L) 13.7 - [facility] 16.5 g/dL [facility] LAB[facility] Hematocrit 22.3 (L) 40.5 - [facility].5 % [facility] MCV 98.7 (H) 82.9 - [facility] 93.1 [facility] LABORATORY MCH 32.7 (H) 27.5 - [facility] XIAO 32.1 pg [facility] LAB[facility]AT[facility] MCHC 33.2 32.0 - [facility] 35.7 g/dL [facility] LAB[facility]ORY Platelets 283 145 - 357 [facility] x10(3)/[facility] LABORATORY RDWSD 47.0 (H) 36.0 - [facility] XIAO 45.0 [facility] LABORATORY RDWCV 13.4 11.4 - [facility] X[facility] 13.8 % [facility] LABORATORY MPV 10.8 7.6 - 12.9 [facility] LABORATORY nRBC % Auto 0.0 % [facility] LABORATORY nRBC Abs Auto 0.000 0.000 - [place] 0.000 [facility] x10(3)/[facility] LABORATORY Specimen Anatomical Collection Method Collection Time Receive d Time (Source) Location / / Volume Laterality Blood 05/31/2022 10:50 05/31/2022 AM EDT 11:03 AM EDT Resulting Agency Comment Spec In Lab Brittany Ramirez MD HEMATOLOGY ORDERABLES Performing Organization Address City/State/ZIP Code Phon e Number [address] Phosphorus (05/31/2022 10:50 AM EDT) P athologist Signature Phosphorus 3.2 2.5 - 4.5 [place] mg/dL [facility] LABORATORY Specimen Anatomical Collection Method Collection Time Receive d Time (Source) Location / / Volume Laterality Blood 05/31/2022 10:50 05/31/2022 AM EDT 11:03 AM EDT Resulting Agency Comment Spec In Lab Regina Hinds MD CHEMISTRY ORDERABLES Performing Organization Address City/State/ZIP Code Phon e Number [address] Magnesium (05/31/2022 10:50 AM EDT) P athologist Signature Magnesium 0.93 0.69 - 1.07 [place] mmol/L [facility] LABORATORY Specimen Anatomical Collection Method Collection Time Receive d Time (Source) Location / / Volume Laterality Blood 05/31/2022 10:50 05/31/2022 AM EDT 11:03 AM EDT Resulting Agency Comment Spec In Lab Regina Hinds MD CHEMISTRY ORDERABLES Performing Organization Address City/State/[place] [address] (ABNORMAL) pro-Brain Natriuretic Peptide (05/31/2022 10:50 AM EDT) P athologist Signature ProBNP 1,077 (H) <=449 [place] pg/mL [facility] LABOR[facility]ORY Specimen Anatomical Collection Method Collection Time Receive d Time (Source) Location / / Volume Laterality Blood 05/31/2022 10:50 05/31/2022 AM EDT 11:03 AM EDT Resulting Agency Comment Spec In Lab Regina Hinds MD CHEMISTRY ORDERABLES Performing Organization Address City/[facility]/[place] [address] Troponin (05/31/2022 10:50 AM EDT) athologist Signature Troponin-T <0.01 0.00 - 0.00 [facility] ng/mL [facility] Comment: The 99th percentile for Troponin T is le ss than 0.01 ng/mL, any detectable cTnT concentration using this assay should be considered elevated. According to the third universal definit ion of myocardial infarction the following criteria with a clinical prese ntation consistent with acute myocardial ischemia meets the diagnosis for a myocardial infarction (CT). Detection of a rise and/or fall of [...] additional sample may be indicated. Reference: Third [place] Definition of Myocardial Infarction. Journal of the [place] [employer] 2012;60:1581-98 Specimen Anatomical Collection Method Collection Time Receive d Time (Source) Location / / Volume Laterality Blood 05/31/2022 10:50 05/31/2022 AM EDT 11:03 AM EDT Resulting Agency Comment Spec In Lab Regina Hinds MD CHEMISTRY ORDERABLES Performing Organization Address City/[facility]/[place] [address] (ABNORMAL) Basic Metabolic Panel (non-fasting) (05/31/2022 10:50 AM EDT) athologist Signature Glucose Lvl 223 (H) 65 - 199 [facility] mg/dL [facility] Comment: Diabetes: >=200 mg/dL plus symp toms BUN 39 (H) 10 - 20 mg/dL [facility] LABORATORY Creatinine 0.91 0.80 - 1.50 [...] Chloride 107 98 - 107 mmol/L [facility]OR[facility] CO2 23 22 - 31 mmol/L [facility] Anion Gap 10 5 - 15 mmol/L [facility] LABORATORY Calcium 9.1 8.5 - 10.5 mg/dL [facility] LABORATORY Estimated GFR 86 >=60 mL/min/1.73 m?? [facility] Comment: This patient's estimated GFR [...] Organization Address City/State/[place] [address] EKG 12 Lead (05/31/2022 10:11 AM EDT) Component Value Ref Range Test Analysis Performed Pathologis t Method Time At Signature Ventricular rate 106 BPM MUSE SYSTEM QRS Duration 122 ms MUSE SYSTEM Q-T Interval 368 ms MUSE SYSTEM QTC Calculated 488 ms MUSE SYSTEM (Bezet) Calculated R Piru -43 degrees MUSE SYSTEM Calculated T Piru 109 degrees MUSE SYSTEM INTERPRETATION Atrial fibrillation [...] erpretation Confirmed by fellow MD Mike, [place] ([id number]) on 022 8:36:21 PM Confirmed by MD [...] PROTOCOL, Starting on Fri05/31/22 at 2013, Until Mccormick 06/02/22 at 1702, Per Pro tocol, START [...] CONTINUOUS, Starting on Fri05/31/22 at 2015, Until Mccormick 06/02/22 at 1702, Begin infusion at 950 [...] (Lidoderm) 5% patch 2 patch(Linked Group 1) 3309 (Patch Applied - Provider: Raven Barbour RN [...] RN)0710 (New Bag - Provider: Raven Barbour RN)0575 (Stopped - Provider: Maranda Ribeiro RN) 0-5,000 [...] - Less than 0.1 international unit/mL: Ad institution librarian 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
Routine documented in this encounter Care Teams Chain Pegger Relationship Specialty Start Date End Date Bobby Das MD PCP - General 10/02/[address] [place] [address] [place] [id number] documented as of this encounter
--- OUTSIDE RECORDS SUMMARY | 2022-07-10 09:35 | XMS_ITS | Encounter Summary ---
:1940 Author Organization [facility] [place] [address] Care Team Providers Name Role Phone Bobby Das MD Primary Care Provider Encounter Details Date Type Department Care Team Description 05/24/2022 Telephone Cardiology at [facility] Kourtney Jimenez, RN [facility] [place] [address] Social History Tobacco Use Types Packs/Day [...] 08/08/2022 Office Visit Gastroenterology Negra Collins MD [facility] [address] GASTROENTEROLOGY DEPT [place], [place] [address] (Wo rk) 09/05/2022 Appointment Cardiology Trinity Reid MD [facility] CARDIOLOGY [place], [place] [address] (Wo rk) 09/05/2022 Office Visit Cardiology Trinity Reid MD [facility] CARDIOLOGY [place], [place] [address] (Wo rk) documented as of this encounter Visit Diagnoses Not on filedocumented in this encounter Care Teams Final Operations Technician Relationship Specialty Start Date End Date Bobby Das MD PCP - General 10/02/[address] [place] [address] [place] [phone] documented as of this encounter
--- OUTSIDE RECORDS SUMMARY | 2022-07-10 09:35 | XMS_ITS | Encounter Summary ---
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 Atrial fibrillation, unspecified type; [facility] SOB (shortness of breath) Drive [facility] [place] VASCULAR [facility]GERY [id number] [place] [id number] [phone] Social History Tobacco Use Types Packs/Day Years [...] Afib who presents in transfer from [facility] with acute limb ischemia of the LLE.??The [...] emergently went to the OR for L BORDEREAU CLERK transverse arteriotomy and primary repair, thromboembolectomy of L SFA/PFA/BORDEREAU CLERK, reperfusion venous drainage for 250 cc, and [...] ND, no palpable pulsatile masses Extremity - [place], warm, no ulceration, brisk capillary refill, left [...] Care Team Description 08/08/2022 Office Visit Gastroenterology eNgra Collins MD [facility] GASTROENTEROLOGY DEPT [place] [address] (Wo rk) 09/05/2022 Appointment Cardiology Trinity Reid MD [facility] CARDIOLOGY [place], [place] [address] (Wo rk) 09/05/2022 Office Visit Cardiology Trinity Reid MD [facility] CARDIOLOGY [place], [place] [address] (Wo rk) documented as of this encounter Visit Diagnoses Diagnosis Dizzy Dizziness and giddiness Atrial fibrillation, unspecified type SOB (shortness of breath) Shortness of breath documented in this encounter Care Teams Logistics Engineer Relationship Specialty Start Date End Date Bobby Das MD PCP - General 10/02/[address] [place] [address] [place] [phone] documented as of this encounter
--- OUTSIDE RECORDS SUMMARY | 2022-07-10 09:36 | XMS_ITS | Encounter Summary ---
:1940 Author Organization [facility] [place] [address] Care Team Providers Name Role Phone Bobby Das MD Primary Care Provider Reason for Referral Consultation (Routine) - Authorized Specialty Diagnoses / Procedures Referred By Contact Refer red To Contact Diagnoses Non-ST elevation myocardial infarction (NSTEMI) Limb ischemia Nasrin Parra PA [facility] Tobacco Treatment [facility] [place] [address] [place] [address] Referral ID Status Reason Start Date Expiration Visits Visits Date Requested Authorized [id number] Authorized Consult, 05/21/2022 05/21/2023 1 1 Test & Treat iagnostic Test (Routine) - Closed Specialty Diagnoses / Procedures Referred By Contact Refer red To Contact Cardiology Diagnoses Paroxysmal atrial fibrillation Nasrin Parra PA [facility] Non-Inv Card Lab Procedures Ziopatch 48 Hrs-15 Days [facility] [place] [address] [place] [address] Fax: Referral ID Status Reason Start Date Expiration Date Visits V isits Requested Authorized [id number] Closed Specialty 05/21/2022 10/21/2022 1 1 Service Requested Consultation (Routine) - Closed Specialty Diagnoses / Procedures Referred By Contact Refer red To Contact Cardiology Diagnoses HFrEF (heart failure with reduced ejection fraction) Paroxysmal atrial fibrillation Post-hospital follow-up, s/p PCI with stenting, heart failure Nasrin Parra PA [facility] Cardiology 4a [facility] D R [facility] [place] [address] [place] [address] Referral ID Status Reason Start Date Expiration Date Visits V isits Requested Authorized [id number] Closed Consult, 05/21/2022 05/21/2023 1 1 Test & Treat iagnostic Test (Routine) - Authorized Specialty Diagnoses / Procedures Referred By Contact Refer red To Contact Diagnoses Limb ischemia Nasrin Parra PA [facility] Vascular Lab 3v Procedures JOSSELYN, legs, multiple levels [facility] [place] [address] [place] [address] Referral ID Status Reason Start Expiration Visits Visits Date Date Requested Authorized [id number] Authorized Specialty 05/21/2022 05/21/2023 1 1 Service Requested ratt Clinic / [facility] Health Care (Routine) - Authorized Specialty Diagnoses / Procedures Referred By Contact Refer red To Contact Diagnoses Limb ischemia Fito Summers MD Home Health & Hospice, [facility] VASCULAR SURGERY [address] [place] [address] [address] Fax: Referral ID Status Reason Start Date Expiration Visits Visits Date Requested Authorized [id number] Authorized Consult, 05/21/2022 11/17/2022 999 999 Test & Treat Reason for Visit Reason Comments Left Leg Pain Auth/Cert Specialty Diagnoses / Procedures Referred By Contact Refer red To Contact Diagnoses Limb ischemia LLE thrombus Fito Summers MD [facility] [place] [address] Referral ID Status Reason Start Date Expiration Date Visits Requ ested Visits Authorized [id number] 1 1 Encounter Details Date Type Department Care Team Description 05/15/2022 - Hospital Intermediate Cardiac Ravi Summers MD [facility] [place] [address] Atrial fibrillation, unspecified type; 05/21/2022 Encounter Care Unit Wellington Gerard MD [facility] [place] [address] Non-ST elevation myocardial infarction ( NSTEMI); [facility] Limb isch emia; [facility] HFrEF (heart failure with re duced ejection fraction); [facility] Paroxysma [place] [address] Social History Tobacco Use Types Packs/Day Years [...] onset Afib who presents in transfer from [facility] with acute limb ischemia of [...] emergently went to the OR for L CONTROL VALVE TECHNICIAN transverse arteriotomy and primary repair, thromboembolectomy of L SFA/PFA/CONTROL VALVE TECHNICIAN, reperfusion venous drainage for 250 cc, and [...] Discharge Condition: Good Discharge to: Home with [address] [address] Future Appointments and Orders Future Appointments and Orders Future Appointments Provider Department Dept Phone 05/23/2022 10:30 AM Loretta Cohen MD Dermatology at [facility] Arrive at: Crystalizer Operator [address] [place] [address] 06/07/2022 1:30 PM Gail Rae APRN Vascular Surgery at [facility] Arrive at: Crystalizer Operator Area [phone] 06/13/2022 7:30 AM Edson Lagos [place] Vascular Lab at [facility] Arrive at: Crystalizer Operator Area [phone] 06/13/2022 8:00 AM Fito Summers MD Vascular Surgery at [facility] Arrive at: Crystalizer Operator Area [phone] 06/13/2022 10:00 AM Alan Reid MD Cardiology at [facility] Arrive at: Crystalizer Operator Area [phone] Future Orders Complete By Expires Demetriusopatch 48 Hrs-15 Days [[id number] CPT(R)] 05/21/2022 11/20/2022 Process Instructions: Scheduling Instructions: Comments: Questions: Does the patient have a pacemaker? If yes provide HI/LO settings: Apply for 7 or 14 days?: 7 Where will study be performed?: [facility] Clinics JOSSELYN, legs, multiple levels [VAS8 Custom] 06/21/2022 (Approximate) 12/21/2022 Process Instructions: There is no in-house vascular cytogenetics laboratory manager available on weeknights (5pm-8am), weekends, or holidays. IF THIS IS A REQUEST FOR AN EMERGENT STUDY DURING THOSE HOURS, please have the senior provider responsible for the patient page the Vascular Surgery Fellow/Senior Resident plater production to discuss options. Scheduling Instructions: Questions: Indication for study/signs & symptoms: ALI s/p L fem cutdown with thromboembolectomy Question to be answered: Perfusion to feet? Please check toe pressure Preferred location?: [facility] Clinics Referral to Cardiology [...] Zamora for admission to Home Health. [address] [address] (home) Date of : 1940 Inpatient DOCUMENTATION FOR VNA SERVICES (INCLUDING THOSE PATIENTS WITH MEDICARE COVERAGE REQUIRING HOME VNA SERVICES AND/OR HOSPICE SERVICES) PATIENT'S LOCATION: Koko Zamora [address] [phone] (home) Cell: No relevant phone numbers on file. Generator Switchboard Operator's Name: Koko In discussion with the attending physician, it is certified that this patient is under their care and that they, or a Nurse Practitioner,Clinical Nurse specialist or Physician Hand Glass Cutter who is working directly with them, had [...] for managing ADL's. HOME HEALTH CARE AGENCY: [facility] [address] [place] [id number] Start of care: Within 24 to 48 [...] obtained from this patient'sPCP: Bobby Das MD [address] [place] [phone] All A agencies which cover the [...] For any problems or questions please call [phone] For issues on weeknights after 5pm and weekends please call [phone] and ask for the Vascular Fellow plater production. JOSEE Santiago Vascular Surgery 05/21/2022 documented in [...] For any problems or questions please call [phone] For issues on weeknights after 5pm and weekends please call [phone] and ask for the Vascular Fellow plater production. documented in this encounter Medications at Time [...] 04/12/20 21 (FLONASE) 50 mcg/actuation Nare route Jasper, Suspension daily as needed. fluorouraciL (EFUDEX) 5 [...] onset Afib who presents in transfer from [facility] with acute limb ischemia of [...] status, full code. JOSEE Santiago 05/21/2022 Pager: [phone] Brannon Isaacs, PT - 05/21/2022 10:35 AM [...] plan as stated. Time IN / OUT: 6355-3063 Total Minutes, Physical Therapy: 25 Billing Code: 2 BOSTON Isaacs DPT Pager: [phone] Physical Therapy Inpatient Rehabilitation Department Wellington Jean [...] 04/17/2021 in Pain and Spine Center at [facility] Weight 79.8 kg (175 [...] and plan of care per Dr. Mcnamara (mallet and die cutter). 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 His [...] to Hosp-Admission (Current) from 05/15/2022 in 4 [facility] Office Visit from 04/17/2021 in Pain and Spine Center at [facility] Weight 79.8 kg (175 [...] findings andplan of care per Dr. Mcnamara (mallet and die cutter). Please refer to her note above for [...] a mitral repair in 2000 (not at [facility]) with no CAD at [...] AF and the first documented HR at [facility] was 125 bpm (presented [...] onset Afib who presents in transfer from [facility] with acute limb ischemia of [...] management following Dottie Hill APRN 05/20/2022 Pager: [phone] Laney Atkins RN - 05/20/2022 1:14 AM EDT Pt Koko transferred to room from [facility]. A&Ox4, oriented to room and call [...] onset Afib who presents in transfer from [facility] with acute limb ischemia of the LLE. ?? The patient had sudden pain starting at 630 05/15/22, he presented [facility] where he was placed on heparin. [...] management following Dottie Hill APRN 05/19/2022 Pager: [phone] Emily Greer RN - 05/19/2022 6:28 AM EDT OUTCOME EVALUATION NOTE: OUTCOME SUMMARY: Patient AOx4, VSS on RA. Afib on tele. HR controlled w/ PRN metop, given x2. Denies CP, SOB, n/v. See flowsheets for NVC. Dressings to LLE CDI, prevena W[place] to groin intact. Voiding to urinal. LBM SEATER GRINDER, patient stating he will maybe try the [...] adequately without difficulty to bedside urinal. LBM SEATER GRINDER. Up to chair this AM with nursing staff. Worked with PT, tolerated well. Diet changed to regular at 1800.Plan is for cardiac cath on Friday. PLAN MOVING FORWARD: Bleeding precautions Pain management neurovascular checks PT/OT pharmacy laboratory technician INDIVIDUALIZED FALL PREVENTION INTERVENTIONS: Patient-specific [...] onset Afib who presents in transfer from [facility] with acute limb ischemia of [...] mL Intravenous BID ??? PHENobarbitaL 0.12 mg/kg/dose ([place]) Oral BID ??? thiamine 100 mg Oral [...] management following Dottie Hill APRN 05/18/2022 Pager: [phone] Brannon Isaacs, PT - 05/18/2022 10:00 AM [...] BY LEG INCISION (WRVU 19.48) performed by Ftio Summers MD at [facility] MAIN OR Social History: Pt lives with [...] in this evaluation. Time IN / OUT: 7199-7217 Total Minutes, Physical Therapy: 30 Billing Code: Basilio Isaacs, PT Pager: [phone] Physical Therapy Inpatient Rehabilitation Department Emily Sauceda RN - 05/18/2022 4:34 AM EDT OUTCOME EVALUATION NOTE: OUTCOME SUMMARY: Patient AOx4, VSS on 2LNC. Afib on tele. HR above 120, MD aware, PRN IV metop given x1, HR returned to 90's-low 100's. Denies CP, SOB, n/v. See flowsheets for NVC. Dressings to LLE CDI, prevena WV to groin intact. Voiding to urinal. LBM SEATER GRINDER. Heparin gtt therapeutic. Pain controlled. Patient sleeping [...] adequately without difficulty to bedside urinal. LBM SEATER GRINDER. Patient not OOB this shift. Currently NPO awaitingprocedure in chemical laboratory assistant. PLAN MOVING FORWARD: Bleeding precautions Pain management neurovascular checks PT/OT NPO for chemical laboratory assistant INDIVIDUALIZED FALL PREVENTION INTERVENTIONS: Patient-specific [...] [X] No CARE PLAN GOAL OUTCOME EVALUATION: Lsibet Herman PT - 05/17/2022 2:40 PM EDT Physical Therapy 05/17/22 1440 Evaluation & Treatment Document Type contact Total Minutes, Physical Therapy 10 Comment, Session Not Performed Orders recieved on Koko Zamora who is a 81 y.o male with history of atrial fibrillation not on anticoagulation, and GI bleeding who presented to the Emergency Department as a transfer from [facility] with left lower extremity limb [...] he will will be going to the chemical laboratory assistant for evaluation. Will defer PT eval at present but will see as ordered post cardiac catheritizaton. Social Hx:Pt lives with his Ursula in [place], [place] in a 2 level home in [...] WBAT LLE LISBET HERMAN PT Pager # [phone] In-Pt Rehab Medicine Dottie Hill APRN - 05/17/2022 7:42 AM EDT Vascular Surgery Progress Note Koko Zamora is a 81 y.o. male with w new onset Afib who presents in transfer from [facility] with acute limb ischemia of [...] mL Intravenous BID ??? PHENobarbitaL 0.24 mg/kg/dose ([place]) Oral BID Followed by ??? [START ON 05/18/2022] PHENobarbitaL 0.12 mg/kg/dose ([place]) Oral BID ??? thiamine 100 mg Oral [...] management following Dottie Hill APRN 05/17/2022 Pager: [phone] Sary Dos Santos, RN - 05/17/2022 12:16 [...] onset Afib who presents in transfer from [facility] with acute limb ischemia of [...] mL Intravenous BID ??? PHENobarbitaL 0.48 mg/kg/dose ([place]) Oral BID Followed by ??? [START ON 05/17/2022] PHENobarbitaL 0.24 mg/kg/dose ([place]) Oral BID Followed by ??? [START ON 05/18/2022] PHENobarbitaL 0.12 mg/kg/dose ([place]) Oral BID ??? thiamine 100 mg Oral [...] management following Edward Rodríguez MD 05/16/2022 Pager: [phone] Sary Dos Santos RN - 05/16/2022 12:52 [...] 2129 Hand off to DION Ramirez 3 [place] documented in this encounter H&P Notes Kerry [...] onset Afib who presents in transfer from [facility] with acute limb ischemia of [...] [facility] INTERVENTIONL RAD Social Hx: Social History Socioeconomic [...] Refill ??? fluticasone propionate (FLONASE) 50 mcg/actuation Jasper, Suspension as needed. ??? fluorouraciL (EFUDEX) 5 [...] and consented. Tim Chicas MD 05/15/2022 Pager: [phone] documented in this encounter ED Notes Lc [...] of the left lower extremity. Vascular surgery [facility] was contacted and he was transferred [...] orders before pt. Arrival. Pt. Arrived at [facility] by EMS at 1150, [...] in an outpatient cardiac rehabilitation program at [facility] was discussed. Patient agrees to a referral to this program. Timing will depend on his recovery from Vascular surgery. He is going home w/VNA PT. I gave him the brochure for the program at [facility] for future reference. Care Management [...] information for follow-up Home Health & Hospice, [facility] [address] [place] [address] Transportation: family or friend will provide Functional [...] Type: *No Product type* / Secondary Insurance: [facility] Prescription Coverage: Yes This plan was formulated with input from patient and team. All are in agreement with plan. IP RS has communicated with Byram - for initial IMM. RAlmita (Satish) DION López RN/CM - Cellphone: [phone] Pager: [phone] Covering Service RN/CM Plan of Care - [...] catheterization, transferred in hospital bed accompanied by Design Consultant RN, remains on telemetry monitoring. Heparin gtt [...] Type: *No Product type* / Secondary Insurance: [facility] Last Physical Therapy Recommendation: home with home health, home with supervision with None Last Occupational Therapy Recommendation: with Plan for discharge is: Home w/ Services Outpatient Agency/Support Group Needs: None Home Health Services: Registered Nurse, Physical Therapy, Occupational Therapy Agency Referrals: I have met with the patient to: ?? discuss discharge planning needs. ?? provide the [facility], Office of Care Management letter from the Golf Superintendent pertaining to rehab referrals. ?? provide a letter describing our affiliations within the [facility] and educate about their right to choose where referrals are sent. ?? provide a list of Home Health Agencies / Durable Medical Equipment vendors which serve their preferred geographic area. ?? provided patient with [facility] Star Quality Rating handout. They have requested referrals to: [facility]. [address] [place] [address] Note routed to a Tool Pusher who will communicate referrals to facilities and provide any required information. Transportation: family or friend will provide Barriers to discharge: None Plan going forward: Patient is going for a cardiac cath today and plan will come from there. Patientwas recently seen by PT and they recommend VNA at time of discharge. [facility] was routed and pendedat this time. Care Management will continue to follow and assist with discharge planning and coordination of care as indicated. Anticipated Date of Discharge: 05/21/2022 Nataly RICHMOND RN Phone: [phone] Pager: [phone] Plan of Care - Laney Atkins RN [...] from the original note were not included. [facility] [place] [address] [address] INPATIENT CARDIOLOGY CONSULT NOTE Date of Consultation: 05/17/2022 Admit Date: 05/15/2022 Hospital Day 2 days Reason for Consult: New afib Active Problems: Active Hospital Problems Diagnosis Limb ischemia Resolved Hospital Problems No resolved problems to display. HPI: Koko Zamora is a 81 y.o. male with a PMHx significant for MVP (s/p MV repair 2000), tobacco use, HLD, who presented to [facility] from OSH on 05/15 with acute limb ischemia of LLE and was found to be in atrial fibrillation. Patient had sudden onset LLE pain on 05/[address] [facility], where he was started on heparin and transferred to [facility]. Upon arrival to [facility], patient was in atrial [...] [facility] INTERVENTIONL RAD IR VERTEBROPLASTY LUMBAR MULTIPLE LEVELS 07/20/2019 IR Vertebroplasty Lumbar Multiple Levels 07/20/2019 Bobby Marshall MD [facility] INTERVENTIONL RAD IR VERTEBROPLASTY THORACIC SINGLE LEVEL 10/25/2020 IR Vertebroplasty Thoracic Single Level 10/25/2020 Matt Chisholm MD [facility] INTERVENTIONL RAD PRO EMBLC/THRMBC FEMORAL POPLITEAL AORTO-ILIAC ARTERY Left 05/15/2022 EMBOLECTOMY OR THROMBECTOMY, FEMOROPOPLITEAL, AORTOILIAC ARTERY BY LEG INCISION (WRVU 19.48) performed by Fito Summers MD at [facility] MAIN OR Allergies Allergen Reactions Aspirin Other (See Comments) GI bleed Out-Patient Medications: Medications Prior to Admission Medication Sig Dispense Refill Last Dose fluorouraciL (EFUDEX) 5 % Cream daily. CRESTOR 40 mg Tablet Take 40 mg by mouth daily. fluticasone propionate (FLONASE) 50 mcg/actuation Jasper, Suspension as needed. ascorbic acid, vitamin C, [...] 5 mL Intravenous BID PHENobarbitaL 0.24 mg/kg/dose ([place]) Oral BID Followed by [START ON 05/18/2022] PHENobarbitaL 0.12 mg/kg/dose ([place]) Oral BID thiamine 100 mg Oral Daily folic acid 1,000 mcg Oral Daily multivitamin with minerals 1 tablet Oral Daily heparin (porcine) infusion 1,200 Units/hr (05/17/22 2557) Family History: No family history on file. [...] ED to Hosp-Admission (Current) from 05/15/[address] [place] [address] Office Visit from 04/17/2021 in Pain and Spine Center at [facility] Weight 79.8 kg (175 [...] continue to follow Anne-Marie Larson MD Pager [phone] Clinic: [phone] 05/17/22 6:22 PM Initial Assessments - Ifrah [...] spouse would be surrogate decision maker per [place] surrogate decision making law. (Only good for 180 days) Any patient receiving care at [facility] must abide by [place] law. The hierarchy for surrogate decision making [...] (i) The agent with financial power of deputy commonwealth's attorney or a conservator appointed in accordance [...] raised toilet seat Home Address confirmed as: [facility] [facility] [address] Social & Family Supports: All names listed below confirmed with patient as Incorrect. Will notify conifer to correct. Wifes address is same as and phone is [phone]. Extended Emergency Contact Information Primary Emergency Contact: Demarco Zamorana Address: [facility] [place] [address] [facility] Relation: Spouse Current Care Provided by: [...] Type: *No Product type* / Secondary Insurance: [facility] Prescription Coverage: Yes Preferred Pharmacy: [id number] - [place], [place] - [address] [facility] [address] [place] [address] [id number] - [place], [place] - [address] [facility] [address] [facility] [address] [place] Status: Patient is a : unable to assess Primary Care Provider: Bobby Das MD [phone] Patient/Caregiver Goals of Treatment: to walk again Potential Needs for Transition of Care: none noted per 05/16 IDR Transportation: family will provide Transportation Anticipated: family or friend will provide Concerns to be Addressed: no discharge needs identified Assessment: Patient is admitted to vascular surg service for left lower extremity limb ischemia Plan: Per PT OT recommendations . Has used [employer] in the past. A member of the Care Management team will continue to monitor progress, follow for continuity of care and assist with transition of care planning. Ifrah Bell RN BSN Property Field InspectorDovetailer of Care Management Pager [phone] Brief Op Note - Erin Garza MD - 05/15/2022 5:04 PM EDT Brief Operative Note Patient Name: Koko Zamora : [id number] MR#: [id number] Case Date: 05/15/2022 Surgeon: Surgeon(s) and Role: [...] Garza MD - 05/15/2022 2:08 PM EDT [facility] Operative Note Patient Name: Koko Zamora : [id number] MR#: [id number] Case Date: 05/15/2022 Surgeon: Surgeon(s) and Role: [...] Office Visit Gastroenterology Negra Collins MD [facility] GASTROENTEROLOGY DEPT [place], [place] [address] (Wo rk) 09/05/2022 Appointment Cardiology Trinity Reid MD [facility] CARDIOLOGY [place], [place] 0375 (Wo rk) 09/05/2022 Office Visit Cardiology Trinity Reid MD [facility] CARDIOLOGY [place], [place] 0375 (Wo rk) Scheduled Referrals Name [...] Component Value Ref Test Analysis Performed At [facility] Range Method Time Signature VB Text Department: Vascular Surgery Lab VASCUBASE Report Patient: [id number] (KOKO ZAMORA) CPT: 01720 Referring Physician: FITO SUMMERS ?? Phone: Indications: s/p L CONTROL VALVE TECHNICIAN endart. Diabetes mellitus: no Findings: Right ?Pressure [...] P athologist Signature Heparin UFH 0.42 IU/mL [facility] LABORATORY Comment: Heparin (anti-Xa) levels should be [...] Organization Address City/State/[place] [address] Differential, Automated (05/21/2022 6:15 AM EDT) athologist Signature Neutrophils % 58.8 % [facility] LABORATORY Neutr Abs (ANC) 3.97 1.70 - [facility] 6.10 [facility] x10(3)[facility] LABORATORY Lymphocytes % 25.2 % [facility] Lymphocytes Abs 1.7 0.9 - 3.2 [facility] x10(3)/[facility] LABORATORY Monocytes % 12.9 % [facility] Monocyte Abs 0.9 0.3 - 0.9 [facility] x10(3)[facility] LABORATORY Eosinophils % 2.1 % [facility] LABORATORY Eosinophils Abs 0.1 0.0 - 0.4 [facility] x10(3)[facility] LABORATORY Basophils % 0.4 % [facility] LABORATORY Basophils Abs 0.0 0.0 - 0.1 [facility] x10(3)[facility] LABORATORY Immature Gran % 0.60 % [facility] [...] 0.04 0.00 - 0.04 x10(3)/[facility] LABORATORY Specimen Anatomical Collection Method Collection Time Receive d Time (Source) Location / / Volume Laterality Blood 05/21/2022 6:15 AM 2 6:38 EDT AM EDT Resulting Agency Comment Spec In Lab Edward Rodríguez MD HEMATOLOGY ORDERABLES Performing Organization Address City/State/[place] [address] (ABNORMAL) Hemogram (05/21/2022 6:15 AM EDT) [facility] gist Method Time Signature WBC 6.8 4.0 - 9.5 [facility](3[facility] LABORATORY RBC 3.59 (L) 4.58 - [facility] 5.54 [facility] x10(6)/[facility] LABORATORY Hemoglobin 11.8 (L) 13.7 - [facility] 16.5 g/dL [facility] LABORATORY Hematocrit 34.5 (L) 40.5 - [facility] 48.5 % [facility] LABORATORY MCV 96.1 (H) 82.9 - [facility] 93.1 [facility] LABORATORY MCH 32.9 (H) 27.5 - [facility] 32.1 pg [facility] LABORATORY MCHC 34.2 32.0 - [facility] 35.7 g/dL [facility] LABORATORY Platelets 198 145 - 357 [facility] x10(3)/[facility] LABORATORY RDWSD 44.9 36.0 - [facility] 45.0 [facility] LABORATORY RDWCV 12.6 11.4 - [facility] 13.8 % [facility] LABORATORY MPV 10.0 7.6 - 12.9 [facility] LABORATORY nRBC % Auto 0.3 % [facility] LABORATORY nRBC Abs Auto 0.020 (H) 0.000 - [facility] 0.000 [facility] x10(3)/[facility] LABORATORY Specimen Anatomical Collection Method Collection Time Receive d Time (Source) Location / / Volume Laterality Blood 05/21/2022 6:15 AM 2 6:38 EDT AM EDT Resulting Agency Comment Spec In Lab Edward Rodríguez MD HEMATOLOGY ORDERABLES Performing Organization Address City/State/[place] [address] EKG 12 Lead (05/20/2022 7:04 PM EDT) Component Value Ref Range Test Analysis Performed Pathologis t Method Time At Signature Ventricular rate 101 BPM MUSE SYSTEM QRS Duration 116 ms MUSE SYSTEM Q-T Interval 378 ms MUSE SYSTEM QTC Calculated 490 ms MUSE SYSTEM (Bezet) Calculated R Blackstone -53 degrees MUSE SYSTEM Calculated T Blackstone 101 degrees MUSE SYSTEM INTERPRETATION Atrial fibrillation [...] - 05/20/2022 7:09 PM ED T ?[facility] ? Cardiac Cathete rization/Intervention Report ? Patient Name: ZamoraKoko ? Procedure Date: 05/20/2022 ? A #: [id number] ? Primary Physician: Abundio Servin ? Case #: [id number] ? File Name: [id number] ? Catheterization Order Number: [id number] ? [facility] ? Final Report [place], [place] ? Patient Name: ? Koko J. Klarissa uson ? ID#: ?[id number] ? : ?1940 ? Procedure Date: ? [...] procedure was Urgent. The indication for ?the chemical laboratory assistant visit is cardiomyo nita. Chest [...] ?3.5 guiding catheter and a 3.5 Fr [facility] [place] [address] ??20 Mhz. ??Imaging ?was successful. ??Image [...] premounted 2. 75 x 30 mm Rudy Ness (AMPARO) was deployed ? with a maximum [...] may require ?modification of this regimen. C [facility] Interventional Cardiology for ?questions. ?The 1 [...] 123 65 - 199 [facility] mg/dL [facility] LABORATORY Comment: Supplemental ranges: <140 mg/dL before meals <180 mg/dL all other times of the day Specimen Anatomical Collection Method Collection Time Receive d Time (Source) Location / / Volume Laterality Blood 05/20/2022 5:42 PM 5:42 EDT PM EDT Fito Summers MD POINT OF CARE TEST ORDERABLE S Performing Organization Address City/State/[place] [address] (ABNORMAL) BMP w/fasting Glucose (05/20/2022 10:50 AM EDT) P athologist Signature Glucose 152 (H) 65 - 99 [facility] Fasting mg/dL [facility] LABORATORY Comment: ?Fasting* Glucose Interpretive C riteria [...] 2009 BUN 11 10 - 20 mg/dL [facility] LABORATORY Creatinine 0.63 (L) 0.80 - [...] 15 mmol/L [facility] LABORATORY Calcium 8.7 8.5 - 10.5 [...] Organization Address City/State/[place] [address] Heparin (unfractionated) Level (05/20/2022 5:02 AM EDT) P athologist Signature Heparin UFH 0.57 IU/mL [facility] LABORATORY Comment: Heparin (anti-Xa) levels should be [...] Organization Address City/State/[place] [address] (ABNORMAL) Differential, Automated (05/20/2022 5:02 AM EDT) [facility] gist Method Time Signature Neutrophils % 58.1 % [facility] LABORATORY Neutr Abs (ANC) 4.52 1.70 - [facility] 6.10 [facility] x10(3)/[facility] LABORATORY Lymphocytes % 24.1 % [facility] LABORATORY Lymphocytes Abs 1.9 0.9 - 3.2 [facility] x10(3)/[facility] LABORATORY Monocytes % 13.8 % [facility] LABORATORY Monocyte Abs 1.1 (H) 0.3 - 0.9 [facility] x10(3)/[facility] LABORATORY Eosinophils % 2.6 % [facility] LABORATORY Eosinophils Abs 0.2 0.0 - 0.4 [facility] x10(3)/[facility] LABORATORY Basophils % 0.8 % [facility] LABORATORY Basophils Abs 0.1 0.0 - 0.1 [facility] x10(3)/[facility] LABORATORY Immature Gran % 0.60 % [facility] [...] Gran Abs 0.05 (H) 0.00 - 0.04 x10(3)/[facility] LABORATORY Specimen Anatomical Collection Method Collection Time Receive d Time (Source) Location / / Volume Laterality Blood 05/20/2022 5:02 AM 5:19 EDT AM EDT Resulting Agency Comment Spec In Lab Edward Rodríguez MD HEMATOLOGY ORDERABLES Performing Organization Address City/State/[place] [address] (ABNORMAL) Hemogram (05/20/2022 5:02 AM EDT) Analysis Performed At Patho logist Time Signature WBC 7.8 4.0 - 9.5 [facility] x10(3)/[facility] LABORATORY RBC 3.53 (L) 4.58 - [facility] 5.54 [facility] x10(6)/[facility] LABORATORY Hemoglobin 11.4 (L) 13.7 - [facility] 16.5 g/dL [facility] LABORATORY Hematocrit 34.3 (L) 40.5 - [facility] 48.5 % [facility] LABORATORY MCV 97.2 (H) 82.9 - [facility] 93.1 [facility] LABORATORY MCH 32.3 (H) 27.5 - [facility] 32.1 pg [facility] LABORATORY MCHC 33.2 32.0 - [facility] 35.7 g/dL [facility] LABORATORY Platelets 181 145 - 357 [facility] x10(3)/[facility] LABORATORY RDWSD 46.4 (H) 36.0 - [facility] 45.0 [facility] LABORATORY RDWCV 13.0 11.4 - [facility] 13.8 % [facility] LABORATORY MPV 10.4 7.6 - 12.9 [facility] LABORATORY nRBC % Auto 0.0 % [facility] LABORATORY nRBC Abs Auto 0.000 0.000 - [facility] 0.000 [facility] x10(3)/[facility] LABORATORY Specimen Anatomical Collection Method Collection Time Receive d Time (Source) Location / / Volume Laterality Blood 05/20/2022 5:02 AM 2 5:19 EDT AM EDT Resulting Agency Comment Spec In Lab Edward Rodríguez MD HEMATOLOGY ORDERABLES Performing Organization Address City/[facility]/[place] [address] Heparin (unfractionated) Level (05/19/2022 3:26 AM EDT) P athologist Signature Heparin UFH 0.59 IU/mL [facility] LABORATORY Comment: Heparin (anti-Xa) levels should be [...] Summers MD HEMATOLOGY ORDERABLES Performing Organization Address City/[facility]/[place] [address] (ABNORMAL) Differential, Automated (05/19/2022 3:26 AM EDT) Patholo gist Method Time Signature Neutrophils % 62.1 % [facility] LABORATORY Neutr Abs (ANC) 4.59 1.70 - [facility] 6.10 [facility] x10(3)/[facility] LABORATORY Lymphocytes % 22.1 % [facility] LABORATORY Lymphocytes Abs 1.6 0.9 - 3.2 [facility] x10(3)/[facility] LABORATORY Monocytes % 13.5 % [facility] LABORATORY Monocyte Abs 1.0 (H) 0.3 - 0.9 [facility] x10(3)/[facility] LABORATORY Eosinophils % 1.3 % [facility] LABORATORY Eosinophils Abs 0.1 0.0 - 0.4 [facility] x10(3)/[facility] LABORATORY Basophils % 0.5 % [facility] LABORATORY Basophils Abs 0.0 0.0 - 0.1 [facility] x10(3)/[facility] LABORATORY Immature Gran % 0.50 % [facility] [...] 0.04 0.00 - 0.04 x10(3)/[facility] LABORATORY Specimen Anatomical Collection Method Collection Time Receive d Time (Source) Location / / Volume Laterality Blood 05/19/2022 3:26 AM 2 3:59 EDT AM EDT Resulting Agency Comment Spec In Lab Edward Rodríguez MD HEMATOLOGY ORDERABLES Performing Organization Address City/State/[place] [address] (ABNORMAL) Hemogram (05/19/2022 3:26 AM EDT) Analysis Performed At Patho logist Time Signature WBC 7.4 4.0 - 9.5 [facility] x10(3)/[facility] LABORATORY RBC 3.74 (L) 4.58 - [facility] 5.54 [facility] x10(6)/[facility] LABORATORY Hemoglobin 12.1 (L) 13.7 - [facility] 16.5 g/dL [facility] LABORATORY Hematocrit 36.4 (L) 40.5 - [facility] 48.5 % [facility] LABORATORY MCV 97.3 (H) 82.9 - [facility] 93.1 [facility] LABORATORY MCH 32.4 (H) 27.5 - [facility] 32.1 pg [facility] LABORATORY MCHC 33.2 32.0 - [facility] 35.7 g/dL [facility] LABORATORY Platelets 168 145 - 357 [facility] x10(3)/[facility] LABORATORY RDWSD 46.9 (H) 36.0 - [facility] 45.0 [facility] LABORATORY RDWCV 13.0 11.4 - [facility] 13.8 % [facility] LABORATORY MPV 10.5 7.6 - 12.9 [facility] LABORATORY nRBC % Auto 0.0 % [facility] LABORATORY nRBC Abs Auto 0.000 0.000 - [facility] 0.000 [facility] x10(3)/[facility] LABORATORY Specimen Anatomical Collection Method Collection Time Receive d Time (Source) Location / / Volume Laterality Blood 05/19/2022 3:26 AM 2 3:59 EDT AM EDT Resulting Agency Comment Spec In Lab Edward Rodríguez MD HEMATOLOGY ORDERABLES Performing Organization Address City/State/[place] [address] TSH (05/18/2022 8:00 PM EDT) P athologist Signature TSH 2.27 0.27 - 4.20 [facility] mcIU/mL [facility] LABORATORY Comment: Reference Interval (mcIU/mL): Females: ??First Trimester: 0.23-3.88 ??Second Trimester: 0.22-3.90 ??Third Trimester: 0.44-4.66 Specimen Anatomical Collection Method Collection Time Receive d Time (Source) Location / / Volume Laterality Blood 05/18/2022 8:00 PM 2 8:06 EDT PM EDT Resulting Agency Comment Spec In Lab Fito Summers MD CHEMISTRY ORDERABLES Performing Organization Address City/State/[place] [address] (ABNORMAL) Differential, Automated (05/18/2022 3:34 AM EDT) [facility] Signature Neutrophils % 67.2 % [facility] LABORATORY Neutr Abs (ANC) 5.89 1.70 - [facility] 6.10 [facility] x10(3)/[facility] LABORATORY Lymphocytes % 17.1 % [facility] LABORATORY Lymphocytes Abs 1.5 0.9 - 3.2 [facility] x10(3)/[facility] LABORATORY Monocytes % 13.6 % [facility] LABORATORY Monocyte Abs 1.2 (H) 0.3 - 0.9 [facility] x10(3)/[facility] LABORATORY Eosinophils % 1.0 % [facility] LABORATORY Eosinophils Abs 0.1 0.0 - 0.4 [facility] x10(3)/[facility] LABORATORY Basophils % 0.6 % [facility] LABORATORY Basophils Abs 0.0 0.0 - 0.1 [facility] x10(3)/[facility] LABORATORY Immature Gran % 0.50 % [facility] [...] 0.04 0.00 - 0.04 x10(3)/[facility] LABORATORY Specimen Anatomical Collection Method Collection Time Receive d Time (Source) Location / / Volume Laterality Blood 05/18/2022 3:34 AM 3:48 EDT AM EDT Resulting Agency Comment Spec In Lab Edward Rodríguez MD HEMATOLOGY ORDERABLES Performing Organization Address City/State/[place] [address] (ABNORMAL) Hemogram (05/18/2022 3:34 AM EDT) Analysis Performed At [facility] logist Time Signature WBC 8.8 4.0 - 9.5 [facility] x10(3)/[facility] LABORATORY RBC 3.45 (L) 4.58 - [facility] 5.54 [facility] x10(6)/[facility] LABORATORY Hemoglobin 11.2 (L) 13.7 - [facility] 16.[facility] g/dL [facility] LABORATORY Hematocrit 33.0 (L) 40.5 - [facility] 48.5 % [facility] LABORATORY MCV 95.7 (H) 82.9 - [facility] 93.1 [facility] LABORATORY MCH 32.5 (H) 27.5 - [facility] 32.1 pg [facility] LABORATORY MCHC 33.9 32.0 - [facility] 35.7 g/dL [facility] LABORATORY Platelets 130 (L) 145 - 357 [facility] x10(3)/[facility] LABORATORY RDWSD 46.2 (H) 36.0 - [facility] 45.0 [facility] RDWCV 13.2 11.4 - [facility] 13.8 % [facility] LABORATORY MPV 10.8 7.6 - 12.9 [facility] LABORATORY nRBC % Auto 0.0 % [facility] LABORATORY nRBC Abs Auto 0.000 0.000 - [facility] 0.000 [facility] x10(3)/[facility] LABORATORY Specimen Anatomical Collection Method Collection Time Receive d Time (Source) Location / / Volume Laterality Blood 05/18/2022 3:34 AM 3:48 EDT AM EDT Resulting Agency Comment Spec In Lab Edward Rodríguez MD HEMATOLOGY ORDERABLES Performing Organization Address City/State/[place] [address] Heparin (unfractionated) Level (05/18/2022 3:34 AM EDT) P athologist Signature Heparin UFH 0.59 IU/mL [facility] LABORATORY Comment: Heparin (anti-Xa) levels should be [...] Summers MD HEMATOLOGY ORDERABLES Performing Organization Address City/[facility]/ZIP Code Phon e Number [address] Magnesium (05/17/2022 3:33 AM EDT) athologist Signature Magnesium 0.76 0.69 - 1.07 [facility] mmol/L [facility] LABORATORY Specimen Anatomical Collection Method Collection Time Receive d Time (Source) Location / / Volume Laterality Blood Venous Draw / 05/17/2022 3:33 AM 05/17/20 4:05 Unknown EDT AM EDT Resulting Agency Comment Spec In Lab Dottie Hill APRN CHEMISTRY ORDERABLES Performing Organization Address City/[facility]/[place] [address] (ABNORMAL) Basic Metabolic Panel (non-fasting) (05/17/2022 3:33 AM EDT) P athologist Signature Glucose Lvl 158 65 - 199 [facility] mg/dL [facility] LABORATORY Comment: Diabetes: >=200 mg/dL plus symp toms BUN 12 10 - 20 mg/dL [facility] LABORATORY Creatinine 0.74 (L) 0.80 - [...] 15 mmol/L [facility] LABORATORY Calcium 8.4 (L) 8.5 - [...] Organization Address City/State/[place] [address] (ABNORMAL) Differential, Automated (05/17/2022 3:33 AM EDT) [facility] gist Method Time Signature Neutrophils % 65.5 % [facility] LABORATORY Neutr Abs (ANC) 6.84 (H) 1.70 - [facility] 6.10 [facility] x10(3)/[facility] LABORATORY Lymphocytes % 19.7 % [facility] LABORATORY Lymphocytes Abs 2.1 0.9 - 3.2 [facility] x10(3)/[facility] LABORATORY Monocytes % 13.1 % [facility] LABORATORY Monocyte Abs 1.4 (H) 0.3 - 0.9 [facility] x10(3)/[facility] LABORATORY Eosinophils % 0.6 % [facility] LABORATORY Eosinophils Abs 0.1 0.0 - 0.4 [facility] x10(3)/[facility] LABORATORY Basophils % 0.6 % [facility] LABORATORY Basophils Abs 0.1 0.0 - 0.1 [facility] x10(3)/[facility] LABORATORY Immature Gran % 0.50 % [facility] [...] Gran Abs 0.05 (H) 0.00 - 0.04 x10(3)/[facility] LABORATORY Specimen Anatomical Collection Method Collection Time Receive d Time (Source) Location / / Volume Laterality Blood 05/17/2022 3:33 AM 3:53 EDT AM EDT Resulting Agency Comment Spec In Lab Edward Rodríguez MD HEMATOLOGY ORDERABLES Performing Organization Address City/State/[place] [address] (ABNORMAL) Hemogram (05/17/2022 3:33 AM EDT) Analysis Performed At Patho logist Time Signature WBC 10.4 (H) 4.0 - 9.5 [facility] x10(3)/[facility] LABORATORY RBC 3.72 (L) 4.58 - [facility] 5.54 [facility] x10(6)/[facility] LABORATORY Hemoglobin 12.0 (L) 13.7 - [facility] 16.5 g/dL [facility] LABORATORY Hematocrit 36.4 (L) 40.5 - [facility] 48.5 % [facility] LABORATORY MCV 97.8 (H) 82.9 - [facility] 93.1 [facility] LABORATORY MCH 32.3 (H) 27.5 - [facility] 32.1 pg [facility] LABORATORY MCHC 33.0 32.0 - [facility] 35.7 g/dL [facility] LABORATORY Platelets 149 145 - 357 [facility] x10(3)/[facility] LABORATORY RDWSD 48.7 (H) 36.0 - [facility] 45.0 [facility] LABORATORY RDWCV 13.5 11.4 - [facility] 13.8 % [facility] LABORATORY MPV 10.6 7.6 - 12.9 [facility] LABORATORY nRBC % Auto 0.0 % [facility] LABORATORY nRBC Abs Auto 0.000 0.000 - [facility] x10(3)/[facility] LABORATORY Specimen Anatomical Collection Method Collection Time Receive d Time (Source) Location / / Volume Laterality Blood 05/17/2022 3:33 AM 3:53 EDT AM EDT Resulting Agency Comment Spec In Lab Edward Rodríguez MD HEMATOLOGY ORDERABLES Performing Organization Address City/State/[place] [address] (ABNORMAL) Urinalysis Microscopic Exam [...] Organization Address City/State/[place] [address] (ABNORMAL) Urinalysis with reflex Culture (05/16/2022 11:15 PM EDT) Patholo gist Method Time Signature Glucose UA Negative Negative [facility] mg/dL [facility] LABORATORY Protein UA Negative Negative [facility]/dL [facility] LABORATORY Bilirubin UA Negative Negative [facility] mg/dL [facility] LABORATORY Comment: Clinical correlation required for positi ve Urine Bilirubin results as false positive may occur with some drugs and d rug related products. If a false positive is suspected a serum total bili quarles should be considered if clinically indicated. Urobilinogen UA Normal Normal mg/dL [facility] LABORATORY pH UA 6.0 5.0 - 8.0 [facility] LABORATORY Blood UA Small (A) Negative mg/dL [facility] LABORATORY Ketones UA Trace (A) Negative mg/dL [facility] LABORATORY Nitrite UA Negative Negative [facility] LABORATORY Leukocytes UA Negative Negative [facility] LABORATORY Appearance UA Clear Clear [facility] LABORATORY Spec [place] UA 1.021 1.005 - 1.030 [facility] LABORATORY Color UA Yellow Yellow [facility] LABORATORY Culture Reflexed No [facility] LABORATORY Specimen Anatomical Collection Method Collection Time Receive d Time (Source) Location / / Volume Laterality Clean Catch 05/16/2022 11:15 05/16/2022 Urine PM EDT 11:30 PM EDT Resulting Agency Comment Spec In Lab Fito Summers MD URINE ORDERABLES Performing Organization Address City/State/[place] [address] Heparin (unfractionated) Level (05/16/2022 10:59 PM EDT) P athologist Signature Heparin UFH 0.65 IU/mL [facility] LABORATORY Comment: Specimen drawn more than one [...] Organization Address City/State/ZIP Code Phon e Number [place] [id number]OSP[address] LAB[address]ORY Drive XR Chest One View [...] assistant that requested your imaging first. ? Narrative [...] Electronically signed by: Tiffanie George MD , [facility] ([phone]), at 05/16/2022 9:27 PM Fito Summers MD IMG DX ORDERABLES EKG 12 Lead (05/16/2022 8:57 PM EDT) Component Value Ref Range Test Analysis Performed Pathologis t Method Time At Signature Ventricular rate 117 BPM MUSE SYSTEM QRS Duration 112 ms MUSE SYSTEM Q-T Interval 346 ms MUSE SYSTEM QTC Calculated 482 ms MUSE SYSTEM (Bezet) Calculated R Blackstone -48 degrees MUSE SYSTEM Calculated T Blackstone 111 degrees MUSE SYSTEM INTERPRETATION Atrial fibrillation with rapid ventricular response MUSE SYSTEM Left anterior fascicular block Minimal voltage criteria for LVH, may be normal variant ( Kim product ) Nonspecific ST and T wave [...] EDT) athologist Signature Heparin UFH 0.53 IU/mL [facility] LABORATORY Comment: Heparin (anti-Xa) levels should be [...] Organization Address City/State/ZIP Code Phon e Number [place] [phone]OS[address] LAB[address] ECHOCARDIOGRAM COMPLETE W CONTRAST (05/16/2022 12:49 PM EDT) athologist Signature EF 28 [facility] Specimen (Source) Anatomical Collection Method Collection Time Re ceived Time Location / / Volume Laterality 05/16/2022 11:22 AM EDT Narrative [facility] - 05/16/2022 1:54 PM EDT ?[facility] ?[address] ? [place] [address] ?Voice: ?Fax: ? Echocardiogram Report Name: KOKO ZAMORA ?Study Date: 05/16/2022 11:22 AM ? Patient Location: 3WST 0303 B : 1940 ? Height: 67.5 in ? Account: [id number] Age: 81 yrs ? Weight: 176 lb Gender: Male ?BSA: 1.9 m2 Ordering Physician: FITO SUMMERS Referring Physician: MALI FLORIAN Performed By: Jolene Bernard LOLLY Exam Location: [facility]. Interpretation Summary Left ventricle is mildly dilated. [...] and LV systolic dysfunction are new. Procedure [id number]. Image enhancement Optiso n was used for [...] note might be different from the original. [place] [address] [place] [address] Voice: Fax: Echocardiogram Report Name: KOKO ZAMORA Study Date: 05/2022 11:22 AM Patient Location: [facility] 0 303 B : 1940 Height: 67.5 in Account: [id number] Age: 81 yrs Weight: 176 lb Gender: Male BSA: 1.9 m2 Ordering Physician: FITO SUMMERS Referring Physician: MALI FLORIAN Performed By: Jolene Bernard RDCS Exam Location: [facility]. Interpretation Summary Left ventricle is mildly dilated. [...] and LV systolic dysfunction are new. Procedure Complete-[id number]. Image enhancement Optiso n was used for [...] (ABNORMAL) Differential, Automated (05/16/2022 3:01 AM EDT) [facility] gist Method Time Signature Neutrophils % 78.8 % [facility] Neutr Abs (ANC) 9.11 (H) 1.70 - [facility] 6.10 [facility] x10(3)/[facility] LABORATORY Lymphocytes % 9.4 % [facility] Lymphocytes Abs 1.1 0.9 - 3.2 [facility] x10(3)/[facility] LABORATORY Monocytes % 10.9 % [facility] Monocyte Abs 1.3 (H) 0.3 - 0.9 [facility] x10(3)/[facility] LABORATORY Eosinophils % 0.0 % [facility] Eosinophils Abs 0.0 0.0 - 0.4 [facility] x10(3)/[facility] LABORATORY Basophils % 0.3 % [facility] Basophils Abs 0.0 0.0 - 0.1 [facility] x10(3)/[facility] LABORATORY Immature Gran % 0.60 % [facility] [...] Gran Abs 0.07 (H) 0.00 - 0.04 x10(3)/[facility] LABORATORY Specimen Anatomical Collection Method Collection Time Receive d Time (Source) Location / / Volume Laterality Blood 05/16/2022 3:01 AM 3:36 EDT AM EDT Resulting Agency Comment Spec In Lab Erin Garza MD HEMATOLOGY ORDERABLES Performing Organization Address City/State/[place] [address] (ABNORMAL) Hemogram (05/16/2022 3:01 AM EDT) Analysis Performed At Patho logist Time Signature WBC 11.6 (H) 4.0 - 9.5 [facility] LABORATORY RBC 3.62 (L) 4.58 - [facility] 5.54 [facility] x10(6)/[facility] LABORATORY Hemoglobin 12.0 (L) 13.7 - [facility]/dL [facility] Hematocrit 35.3 (L) 40.5 - [facility] 48.5 % [facility] MCV 97.5 (H) 82.9 - [facility] 93.1 [facility] LABORATORY MCH 33.1 (H) 27.5 - [facility] 32.1 pg [facility] LABOR[facility]ORY MCHC 34.0 32.0 - [facility] 35.7 g/dL [facility] Platelets 151 145 - 357 [facility] x10(3)/[facility] LABORATORY RDWSD 47.6 (H) 36.0 - [facility] 45.0 [facility] LABORATORY RDWCV 13.3 11.4 - [facility] 13.8 % [facility] LABORATORY MPV 10.5 7.6 - 12.9 [facility] LABORATORY nRBC % Auto 0.0 % [facility] nRBC Abs Auto 0.000 0.000 - [facility] 0.000 [facility] x10(3)/[facility] LABORATORY Specimen Anatomical Collection Method Collection Time Receive d Time (Source) Location / / Volume Laterality Blood 05/16/2022 3:01 AM 2 3:36 EDT AM EDT Resulting Agency Comment Spec In Lab Erin Garza MD HEMATOLOGY ORDERABLES Performing Organization Address City/State/ZIP Code Phon e Number [address] Phosphorus (05/16/2022 3:01 AM EDT) athologist Signature Phosphorus 3.7 2.5 - 4.5 [facility] mg/dL [facility] LABORATORY Specimen Anatomical Collection Method Collection Time Receive d Time (Source) Location / / Volume Laterality Blood 05/16/2022 3:01 AM 2 3:36 EDT AM EDT Resulting Agency Comment Spec In Lab Fito Summers MD CHEMISTRY ORDERABLES Performing Organization Address City/[facility]/ZIP Code Phon e Number [address] Magnesium (05/16/2022 3:01 AM EDT) athologist Signature Magnesium 0.77 0.69 - 1.07 [facility] mmol/L [facility] LABOR[facility]ORY Specimen Anatomical Collection Method Collection Time Receive d Time (Source) Location / / Volume Laterality Blood 05/16/2022 3:01 AM 2 3:36 EDT AM EDT Resulting Agency Comment Spec In Lab Fito Summers MD CHEMISTRY ORDERABLES Performing Organization Address City/[facility]/[place] [address] (ABNORMAL) Basic Metabolic Panel (non-fasting) (05/16/2022 3:01 AM EDT) athologist Signature Glucose Lvl 222 (H) 65 - 199 [facility] mg/dL [facility] Comment: Diabetes: >=200 mg/dL plus symp [...] Anion Gap 8 5 - 15 mmol/L [facility] LABORATORY Calcium 8.2 (L) 8.5 - [...] Organization Address City/State/[place] [address] (ABNORMAL) BLOOD GAS 2 ARTERIAL (05/15/2022 3:33 PM EDT) Analysis Performed At Patho logist Time Signature pH Art 7.33 (L) 7.35 - [facility] 7.45 [facility] LABORATORY pCO2 Art 41 35 - 45 [facility] LABORATORY pO2 Art 131 (H) 85 - 104 [facility] LABORATORY HCO3 Art 21.1 20.0 - [facility] 26.0 [facility] mmol/L [facility] BE Art -4.8 (L) -3.0 - 3.0 [facility] mmol/L [facility]OR[facility]ORY Hgb Blood Gas 13.4 (L) 13.7 - [facility] 16.5 g/dL [facility] O2HB Art 96.9 94.0 - [facility] 97.0 % [facility]OR[facility]ORY COHB Art 1.4 % [facility] Comment: Nonsmokers: 0.5-1.5% COHB Smokers: Variable, but usually less than 10% Toxic: 20-30% COHB Lethal: Greater than 60% COHB METHB Art 0.3 <=1.5 % [facility] LABORATORY Na Whole Blood 139 [...] Blood 113 (H) 98 - 107 mmol/L [facility] LABOR[facility]ORY Gluc Whole Bld 136 [...] Organization Address City/State/ZIP Code Phon e Number [facility] [place] [address] (ABNORMAL) BLOOD GAS 2 ARTERIAL (05/15/2022 2:06 PM EDT) Analysis Performed At Patho logist Time Signature pH Art 7.39 7.35 - [facility] 7.45 [facility] LABOR[facility]ORY pCO2 Art 35 35 - 45 [facility] mmHg [facility] LABOR[facility]ORY pO2 Art 135 (H) 85 - 104 [facility] mmHg [facility] LABORATORY HCO3 Art 20.8 20.0 - [facility] 26.0 [facility] mmol/L [facility] BE Art -4.2 (L) -3.0 - 3.0 [facility] mmol/L [facility] LABOR[facility]ORY Hgb Blood Gas 14.5 13.7 - [facility] 16.5 g/dL [facility] O2HB Art 97.2 (H) 94.0 - [facility] 97.0 % [facility] LABOR[facility]ORY COHB Art 1.2 % [facility] Comment: Nonsmokers: 0.5-1.5% COHB Smokers: Variable, but usually less than 10% Toxic: 20-30% COHB Lethal: Greater than 60% COHB METHB Art 0.3 <=1.5 % [facility] LABORATORY Na Whole Blood 140 [...] Blood 109 (H) 98 - 107 mmol/L [facility] Gluc Whole Bld 152 [...] Organization Address City/State/[place] [address] (ABNORMAL) Prothrombin Time (05/15/2022 12:30 PM EDT) athologist Signature PT 12.9 (H) 9.4 - 12.5 [facility] LABORATORY INR 1.1 [facility] [...] d Time (Source) Location / / Volume [facility] Blood 05/15/2022 12:30 05/15/2022 1:00 PM EDT PM EDT Resulting Agency Comment Spec In Lab Jhonny Morales DO HEMATOLOGY ORDERABLES Performing Organization Address City/State/[place] [address] (ABNORMAL) APTT (05/15/2022 12:30 [...] d Time (Source) Location / / Volume [facility] Blood 05/15/2022 12:30 05/15/2022 1:00 PM EDT PM EDT Resulting Agency Comment Spec In Lab Jhonny Morales DO HEMATOLOGY ORDERABLES Performing Organization Address City/State/[place] [address] Gold Tube HOLD (05/15/2022 12:20 PM EDT) P athologist Signature Gold Hold Sample in [facility]. [facility]ORY Specimen Anatomical Collection Method Collection Time Receive d Time (Source) Location / / Volume Laterality Blood No Charge / 05/15/2022 12:20 05/15/2022 Unknown PM EDT 12:20 PM EDT Lc TRIPP CHEMISTRY ORDERABLES Performing Organization Address City/State/ZIP Code Phon e Number [address] Type and Screen Validity (05/15/2022 12:00 PM EDT) [facility] Method Time Signature T&S only valid [facility] at [facility] LABOR[facility]ORY Comment: This Type and Screen result is only valid at the [facility] Specimen Anatomical Collection Method Collection Time Receive d Time (Source) Location / / Volume Laterality Blood 05/15/2022 12:00 05/15/2022 PM EDT 12:17 PM EDT Resulting Agency Comment Spec In Lab Lc TRIPP BLOOD BANK ORDERABLES Performing Organization Address City/State/ZIP Code Phon e Number [address] ABORH Recheck Status (05/15/2022 12:00 PM EDT) [facility] Method Time Signature ABORH Recheck Order Placed [facility] K Order [facility] LABORATORY ABORH Type Complete [facility] LABORATORY Specimen Anatomical Collection Method Collection Time Receive d Time (Source) Location / / Volume Laterality Blood 05/15/2022 12:00 05/15/2022 PM EDT 12:17 PM EDT Resulting Agency Comment Spec In Lab Lc TRIPP BLOOD BANK ORDERABLES Performing Organization Address City/State/ZIP Code Phon e Number [address] CK (05/15/2022 12:00 PM EDT) P athologist Signature CK, Total 87 0 - 200 [facility] unit/L [facility] LABORATORY Specimen Anatomical Collection Method Collection Time Receive d Time (Source) Location / / Volume Laterality Blood Venous Draw / 05/15/2022 12:00 05/15/2022 Unknown PM EDT 12:19 PM EDT Resulting Agency Comment Spec In Lab Fito Summers MD CHEMISTRY ORDERABLES Performing Organization Address City/[facility]/[place] [address] Antibody screen (05/15/2022 12:00 PM EDT) [facility] Method Time Signature Ab Screen Negative [facility] LABORATORY Expires at 05/18/2022 [facility] [id number] on: [facility] LABOR[facility]ORY Specimen Anatomical Collection Method Collection Time Receive d Time (Source) Location / / Volume Laterality Blood 05/15/2022 12:00 05/15/2022 PM EDT 12:17 PM EDT Resulting Agency Comment Spec In Lab Lc TRIPP BLOOD BANK ORDERABLES Performing Organization Address City/[facility]/[place] [address] ABO/Rh Typing (05/15/2022 12:00 PM EDT) P athologist Signature ABORh Type O Pos [facility] Specimen Anatomical Collection Method Collection Time Receive d Time (Source) Location / / Volume Laterality Blood 05/15/2022 12:00 05/15/2022 PM EDT 12:17 PM EDT Resulting Agency Comment Spec In Lab Lc TRIPP BLOOD BANK ORDERABLES Performing Organization Address City/[facility]/[place] [address] (ABNORMAL) Differential, Automated (05/15/2022 12:00 PM EDT) [facility] Method Time Signature Neutrophils % 79.4 % [facility] Neutr Abs (ANC) 7.49 (H) 1.70 - [facility] 6.10 [facility] x10(3)/[facility] L LABORATORY Lymphocytes % 11.3 % [facility] Lymphocytes Abs 1.1 0.9 - 3.2 [facility] x10(3)/[facility] LABORATORY Monocytes % 7.8 % [facility] Monocyte Abs 0.7 0.3 - 0.9 [facility] x10(3)/[facility] LABORATORY Eosinophils % 0.6 % [facility] Eosinophils Abs 0.1 0.0 - 0.4 [facility] x10(3)/[facility] LABORATORY Basophils % 0.6 % [facility] Basophils Abs 0.1 0.0 - 0.1 [facility] x10(3)/[facility] LABORATORY Immature Gran % 0.30 % [facility] [...] 0.03 0.00 - 0.04 x10(3)/[facility] LABORATORY Specimen Anatomical Collection Method Collection Time Receive d Time (Source) Location / / Volume Laterality Blood 05/15/2022 12:00 05/15/2022 PM EDT 12:19 PM EDT Resulting Agency Comment Spec In Lab Lc TRIPP HEMATOLOGY ORDERABLES Performing Organization Address City/State/[place] [address] (ABNORMAL) Hemogram (05/15/2022 12:00 PM EDT) Analysis Performed At Patho logist Time Signature WBC 9.4 4.0 - 9.5 [facility] x10(3)/[facility] LABORATORY RBC 4.48 (L) 4.58 - [facility] 5.54 [facility] x10(6)/[facility] LABORATORY Hemoglobin 14.5 13.7 - [facility] 16.5 g/dL [facility] LABORATORY Hematocrit 42.4 40.5 - [facility] 48.5 % [facility] LABORATORY MCV 94.6 (H) 82.9 - [facility] 93.1 [facility] LABORATORY MCH 32.4 (H) 27.5 - [facility] 32.1 pg [facility] LABORATORY MCHC 34.2 32.0 - [facility] g/dL [facility] LABORATORY Platelets 209 145 - 357 [facility] x10(3)/[facility] LABORATORY RDWSD 45.9 (H) 36.0 - [facility] 45.0 [facility] LABORATORY RDWCV 13.1 11.4 - [facility] 13.8 % [facility] LABORATORY MPV 10.5 7.6 - 12.9 [facility] LABORATORY nRBC % Auto 0.0 % [facility] nRBC Abs Auto 0.000 0.000 - [facility] 0.000 [facility] x10(3)/[facility] LABORATORY Specimen Anatomical Collection Method Collection Time Receive d Time (Source) Location / / Volume Laterality Blood 05/15/2022 12:00 05/15/2022 PM EDT 12:19 PM EDT Resulting Agency Comment Spec In Lab Lc TRIPP HEMATOLOGY ORDERABLES Performing Organization Address City/State/[place] [address] (ABNORMAL) Basic Metabolic Panel (non-fasting) (05/15/2022 12:00 PM EDT) P athologist Signature Glucose Lvl 203 (H) 65 - 199 [facility] mg/dL [facility] LABOR[facility]ORY Comment: Diabetes: >=200 mg/dL plus symp toms BUN 16 10 - 20 mg/dL [facility] LABORATORY Creatinine 0.84 0.80 - 1.50 [...] Anion Gap 11 5 - 15 mmol/L [facility] LABOR[facility]ORY Calcium 8.5 8.5 - 10.5 [...] Organization Address City/State/[place] [address] documented in this encounter [...] mg = 1.8 mg/kg/dose ? 67.7 kg [place] weight), Intravenous, at 11.3 mL/hr, EVERY 3 [...] mg = 2.4 mg/kg/dose ? 67.7 kg [place] weight), Intravenous, at 15 mL/hr, ONCE, 1 [...] mg = 0.24 mg/kg/dose ? 67.7 kg [place] weight), Oral, 2 TIMES DAILY, 2 doses, [...] mg = 0.48 mg/kg/dose ? 67.7 kg [place] weight), Oral, 2 TIMES DAILY, 2 doses, [...] mg = 0.12 mg/kg/dose ? 67.7 kg [place] weight), Oral, 2 TIMES DAILY, 2 doses, [...] Reason: Transfer to a Procedural area)1955 ([facility] Unhold - Provider: Admin Adt) [...] Caroline Zamora, DION)2099 (Not Given - Provider: Nruis Lester, DION - Reason: Patient/family refused) 09 [...] (Given - Provider: Barbie Joyce RN)1750 ([facility] Hold - Provider: Admin Adt - Reason: Transfer to a Procedural area)1955 ([facility] Unhold - Provider: Admin Adt) 0816 (Given - Provider: Etta contreras RN) 100 mg, Oral, DAILY, First dose on Brandi at 0900, Until Discontinued, Routine valsartan (Diovan) tablet 40 mg 0838 (Given - Provider : Caroline Zamora, DION)2008 (Given - Provider: Nuris Lester RN) 0853 (Given - Provider: Barbie Joyce RN)1750 ([facility] Hold - Provider: Admin Adt - Reason: Transfer to a Procedural area)1955 ([facility] Unhold - Provider: Admin Adt)2005 [...] Bag - Provider: Barbie Joyce RN)1750 ([facility] Hold - Provider: Admin Adt - Reason: Transfer to a Procedural area)1955 ([facility] Unhold - Provider: Admin Adt) [...] Reason: Transfer to a Procedural area)1955 ([facility] Unhold - Provider: Admin Adt) [...] (Dulcolax) suppository 10 mg 1 751 ([facility] Hold - Provider: Admin Adt - Reason: Transfer to a Procedural area)1955 ([facility] Unhold - Provider: Admin Adt) [...] (1,000 units/mL) injection 0-8,000 Units 1750 ([facility] Hold - Provider: Admin Adt [...]
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
--- OUTSIDE RECORDS SUMMARY | 2022-07-10 09:36 | XMS_ITS | Encounter Summary ---
:1940 [place] [address] Care Team Providers Name Role Phone Bobby Das MD Primary Care Provider Reason for Visit Reason Comments Left Leg Pain Auth/Cert Specialty Diagnoses / Procedures Referred By Contact Refer red To Contact Diagnoses Limb ischemia LLE thrombus Fito Summers MD [facility] [address] Referral ID Status Reason Start Date Expiration Date Visits Requ ested Visits Authorized [id number] 1 1 Encounter Details Date Type Department Care Team Description 05/15/2022 Surgery Main Operating Room Savana Summers se, MD [facility] FEMOROPOSANG, [facility] VASCULAR SURG JULIAN [place] [address] LEG INCISION ([place] [address] 19.48) [phone] Social History Tobacco Use Types Packs/Day Years [...] onset Afib who presents in transfer from [facility] with acute limb ischemia of the LLE. [...] emergently went to the OR for L SENIOR ANALYSIS SPECIALIST transverse arteriotomy and primary repair, thromboembolectomy of L SFA/PFA/SENIOR ANALYSIS SPECIALIST, reperfusion venous drainage for 250 cc, [...] Discharge Condition: Good Discharge to: Home with [facility] [address] [address] Future Appointments and Orders Future Appointments and Orders Future Appointments Provider Department Dept Phone 05/23/2022 10:30 AM Loretta Cohen MD Dermatology at [facility] Arrive at: [facility] [address] [place] [address] 06/07/2022 1:30 PM Gail Rae APRN Vascular Surgery at [facility] Arrive at: [facility] [phone] 06/13/2022 7:30 AM Edson Lagos [place] Vascular Lab at [facility] Arrive at: [facility] [phone] 06/13/2022 8:00 AM Fito Summers MD Vascular Surgery at [facility] Arrive at: [facility] 3V [phone] 06/13/2022 10:00 AM Alan Reid MD Cardiology at [facility] Arrive at: [facility] 4A [phone] Future Orders Complete By Expires Ziopatch 48 Hrs-15 Days [[id number] CPT(R)] 05/21/2022 11/20/2022 Process Instructions: Scheduling Instructions: Comments: Questions: Does the patient have a pacemaker? If yes provide HI/LO settings: Apply for 7 or 14 days?: 7 Where will study be performed?: [facility] Clinics JOSSELYN, legs, multiple levels [VAS8 Custom] 06/21/2022 (Approximate) 12/21/2022 Process Instructions: There is no in-house vascular vat house laborer available on weeknights (5pm-8am), weekends, or holidays. IF THIS IS A REQUEST FOR AN EMERGENT STUDY DURING THOSE HOURS, please have the senior provider responsible for the patient page the Vascular Surgery Fellow/Senior Resident manager continuous improvement to discuss options. Scheduling Instructions: Questions: Indication for study/signs & symptoms: ALI s/p L fem cutdown with thromboembolectomy Question to be answered: Perfusion to feet? Please check toe pressure Preferred location?: [facility] Referral to Cardiology [REF12 Custom] As directed [...] Zamora for admission to Home Health. [address] [facility] [address] (home) Date of : 1940 Inpatient DOCUMENTATION FOR VNA SERVICES (INCLUDING THOSE PATIENTS WITH MEDICARE COVERAGE REQUIRING HOME VNA SERVICES AND/OR HOSPICE SERVICES) PATIENT'S LOCATION: Koko Zamora [address] [facility] [address] (home) Cell: No relevant phone numbers on file. Data Integration Developer's Name: Koko In discussion with the attending physician, it is certified that this patient is under their care and that they, or a Nurse Practitioner,Clinical Nurse specialist or Physician Bulb Sorter who is working directly with them, had [...] for managing ADL's. HOME HEALTH CARE AGENCY: [facility] [address] [place] [id number] Start of care: Within 24 to 48 [...] obtained from this patient'sPCP: Bobby Das MD [address] [place] [address] / [place] [address] All VNA agencies which cover the [...] All of this went very well. Dr. uSmmers will want you to be seenin approximately [...] For any problems or questions please call [phone] For issues on weeknights after 5pm and weekends please call [phone] and ask for the Vascular Fellow manager continuous improvement. JOSEE Santiago Vascular Surgery 05/21/2022 documented in [...] For any problems or questions please call [phone] For issues on weeknights after 5pm and weekends please call [phone] and ask for the Vascular Fellow manager continuous improvement. documented in this encounter Medications at Time [...] 04/12/20 21 (FLONASE) 50 mcg/actuation Nare route [place], Suspension daily as needed. fluorouraciL (EFUDEX) 5 [...] 12:41 PM EDT Vascular Surgery Progress Note Kkoo Zamora is a 81 y.o. male with w new onset Afib who presents in transfer from [facility] with acute limb ischemia of the LLE. [...] status, full code. JOSEE Santiago 05/21/2022 Pager: [phone] PaBrannon gamino, PT - 05/21/2022 10:35 AM [...] plan as stated. Time IN / OUT: 9393-9122 Total Minutes, Physical Therapy: 25 Billing Code: 2 TA Brannon Isaacs DPT Pager: [phone] Physical Therapy Inpatient Rehabilitation Department [place] Jean [...] Intermediate Cardiac Care Unit [facility] Office Visit from 04/17/2021 in Pain and Spine Center at [facility] Weight 79.8 kg (175 lb [...] and plan of care per Dr. Mcnamara (military communications specialist). Please refer to her note above for [...] limb ischemia (thromboembolic) and he is a skilled nursing smoker (1/2 ppd, recommend nicotine patch). His [...] in Pain and Spine Center at [facility] Weight 79.8 kg (175 lb [...] findings andplan of care per Dr. Mcnamara (military communications specialist). Please refer to her note above for [...] mitral repair in 2000 (not at [facility]) with no CAD at that [...] and the first documented HR at [facility] was 125 bpm (presented to [...] onset Afib who presents in transfer from [facility] with acute limb ischemia of the LLE. [...] management following Dottie Hill APRN 05/20/2022 Pager: [phone] Laney Atkins RN - 05/20/2022 1:14 AM EDT Pt Koko transferred to room from [facility]. A&Ox4, oriented to room and call boo. Masimo and telemetry placed. In agreement with assessment as documented this evening by Nuris ASHLEY. No complaints at this time. Pt aware of NPO status and plan for cardiac cath in AM. Urinal provided. Resting comfortably in bed. Nuris Lester RN - 05/20/2022 1:09 AM EDT Pt. Transferred to [facility]. RN accompanied patient to floor and handed off to [facility] RN Dottie Hill APRN - 05/19/2022 10:02 AM EDT Vascular Surgery Progress Note Koko Zamora is a 81 y.o. male with w new onset Afib who presents in transfer from [facility] with acute limb ischemia of the LLE. [...] management following Dottie Hill APRN 05/19/2022 Pager: [phone] Emily Sauceda RN - 05/19/2022 6:28 AM EDT OUTCOME EVALUATION NOTE: OUTCOME SUMMARY: Patient AOx4, VSS on RA. Afib on tele. HR controlled w/ PRN metop, given x2. Denies CP, SOB, n/v. See flowsheets for NVC. Dressings to LLE CDI, prevena WV to groin intact. Voiding to urinal. LBM FROZEN FOODS MANAGER, patient stating he will maybe try [...] adequately without difficulty to bedside urinal. LBM FROZEN FOODS MANAGER. Up to chair this AM with nursing staff. Worked with PT, tolerated well. Diet changed to regular at 1800.Plan is for cardiac cath on Friday. PLAN MOVING FORWARD: Bleeding precautions Pain management neurovascular checks PT/OT laboratory immunologist INDIVIDUALIZED FALL PREVENTION INTERVENTIONS: Patient-specific fall risk [...] onset Afib who presents in transfer from [facility] with acute limb ischemia of the LLE. [...] mL Intravenous BID ??? PHENobarbitaL 0.12 mg/kg/dose ([place]) Oral BID ??? thiamine 100 mg Oral [...] management following Dottie Hill APRN 05/18/2022 Pager: [phone] Brannon Isaacs, PT - 05/18/2022 10:00 AM [...] Biopsy Spine 07/20/2019 Bobby Marshall MD [facility] INTERVENTIONL RAD ??? IR VERTEBROPLASTY LUMBAR MULTIPLE LEVELS 07/20/2019 IR Vertebroplasty Lumbar Multiple Levels 07/20/2019 Bobby Marshall MD [facility] INTERVENTION[facility] RAD ??? IR VERTEBROPLASTY THORACIC SINGLE LEVEL 10/25/2020 IR Vertebroplasty Thoracic Single Level 10/25/2020 Matt Chisholm MD [facility] INTERVENTIONL RAD ??? PRO EMBLC/THRMBC FEMORAL POPLITEAL AORTO-ILIAC ARTERY Left 05/15/2022 EMBOLECTOMY OR THROMBECTOMY, FEMOROPOPLITEAL, AORTOILIAC ARTERY BY LEG INCISION (WRVU 19.48) performed by Fito Summers MD at [facility] MAIN OR Social History: Pt lives with [...] in this evaluation. Time IN / OUT: 6272-6287 Total Minutes, Physical Therapy: 30 Billing Code: Basilio Isaacs, PT Pager: [phone] Physical Therapy Inpatient Rehabilitation Department Emily Sauceda RN - 05/18/2022 4:34 AM EDT OUTCOME EVALUATION NOTE: OUTCOME SUMMARY: Patient AOx4, VSS on 2LNC. Afib on tele. HR above 120, MD aware, PRN IV metop given x1, HR returned to 90's-low 100's. Denies CP, SOB, n/v. See flowsheets for NVC. Dressings to LLE CDI, prevena WV to groin intact. Voiding to urinal. LBM FROZEN FOODS MANAGER. Heparin gtt therapeutic. Pain controlled. Patient [...] adequately without difficulty to bedside urinal. LBM FROZEN FOODS MANAGER. Patient not OOB this shift. Currently NPO awaitingprocedure in chemical laboratory tester. PLAN MOVING FORWARD: Bleeding precautions Pain management neurovascular checks PT/OT NPO for chemical laboratory tester INDIVIDUALIZED FALL PREVENTION INTERVENTIONS: Patient-specific fall risk [...] the Emergency Department as a transfer from [facility] with left lower extremity limb ischemia. He went to [facility] and was startedon heparin and transferred to [facility] for evaluation by vascular surgery [...] will be going to the chemical laboratory tester for evaluation. Will defer PT eval at present but will see as ordered post cardiac catheritizaton. Social Hx:Pt lives with his Ursula in [place], [place] in a 2 level home in [...] WBAT LLE LISBET HERMAN PT Pager # [phone] In-Pt Rehab Medicine Dottie Hill APRN - 05/17/2022 7:42 AM EDT Vascular Surgery Progress Note Koko Zamora is a 81 y.o. male with w new onset Afib who presents in transfer from [facility] with acute limb ischemia of the LLE. [...] mL Intravenous BID ??? PHENobarbitaL 0.24 mg/kg/dose ([place]) Oral BID Followed by ??? [START ON 05/18/2022] PHENobarbitaL 0.12 mg/kg/dose ([place]) Oral BID ??? thiamine 100 mg Oral [...] management following Dottie Hill APRN 05/17/2022 Pager: [phone] Sary Dos Santos, RN - 05/17/2022 12:16 [...] onset Afib who presents in transfer from [facility] with acute limb ischemia of the LLE. [...] mL Intravenous BID ??? PHENobarbitaL 0.48 mg/kg/dose ([place]) Oral BID Followed by ??? [START ON 05/17/2022] PHENobarbitaL 0.24 mg/kg/dose ([place]) Oral BID Followed by ??? [START ON 05/18/2022] PHENobarbitaL 0.12 mg/kg/dose ([place]) Oral BID ??? thiamine 100 mg Oral [...] management following Edward Rodríguez MD 05/16/2022 Pager: [phone] Sary Dos Santos RN - 05/16/2022 12:52 [...] 2129 Hand off to DION Ramirez 3 [place] documented in this encounter H&P Notes Kerry [...] onset Afib who presents in transfer from [facility] with acute limb ischemia of the LLE. [...] Biopsy Spine 07/20/2019 Bobby Marshall MD [facility] RAD ??? IR VERTEBROPLASTY LUMBAR MULTIPLE LEVELS 07/20/2019 IR Vertebroplasty Lumbar Multiple Levels 07/20/2019 Bobby Marshall MD [facility] RAD ??? IR VERTEBROPLASTY THORACIC SINGLE LEVEL 10/25/2020 IR Vertebroplasty Thoracic Single Level 10/25/2020 Matt Chisholm MD [facility] INTERVENTION[facility] RAD Social Hx: Social History Socioeconomic [...] Refill ??? fluticasone propionate (FLONASE) 50 mcg/actuation [place], Suspension as needed. ??? fluorouraciL (EFUDEX) 5 [...] and consented. Tim Chicas MD 05/15/2022 Pager: [phone] documented in this encounter ED Notes Lc Harris PA - 05/15/2022 1:20 PM EDT ED Provider Note HPI: Koko Zamora is a 81 y.o. male with history of atrial fibrillation not on anticoagulation, and GI bleeding who presents to the Emergency Department as a transfer from [facility] with left lower extremity limb ischemia. Patient says that the symptoms started roughly 630 this morning when he developed severe pain in his left lower extremity. He went to [facility] and was started on heparin and transferred to [facility] for evaluation by vascular surgery. [...] lower extremity earlier today and went to [facility] where it was determined that he had ischemia of the left lower extremity. Vascular surgery [facility] was contacted and he was transferred [...] before pt. Arrival. Pt. Arrived at [facility] by EMS at 1150, vascular [...] in an outpatient cardiac rehabilitation program at [facility] was discussed. Patient agrees to a referral to this program. Timing will depend on his recovery from Vascular surgery. He is going home w/VNA PT. I gave him the brochure for the program at [facility] for future reference. Care Management Discharge - [...] information for follow-up [facility], [place] [address] [place] [address] Transportation: family or friend will provide Functional [...] Type: *No Product type* / Secondary Insurance: [facility] Prescription Coverage: Yes This plan was formulated with input from patient and team. All are in agreement with plan. [facility] IMM. Shawn (Satish) DION López RN/CM - Cellphone: [phone] Pager: [phone] Covering Service RN/CM Plan of Care - [...] catheterization, transferred in hospital bed accompanied by Supervisor Lathing RN, remains on telemetry monitoring. Heparin gtt [...] Type: *No Product type* / Secondary Insurance: [facility] Last Physical Therapy Recommendation: home with home health, home with supervision with None Last Occupational Therapy Recommendation: with Plan for discharge is: Home w/ Services Outpatient Agency/Support Group Needs: None Home Health Services: Registered Nurse, Physical Therapy, Occupational Therapy Agency Referrals: I have met with the patient to: ?? discuss discharge planning needs. ?? provide the [facility], Office of Care Management letter from the [employer] pertaining to rehab referrals. ?? provide a letter describing our affiliations within the [facility] and educate about their right to choose where referrals are sent. ?? provide a list of Home Health Agencies / Durable Medical Equipment vendors which serve their preferred geographic area. ?? provided patient with [facility] Star Quality Rating handout. They have requested referrals to: [facility] [place] [place] [address] Note routed to a Aco Coordinator who will communicate referrals to facilities and provide any required information. Transportation: family or friend will provide Barriers to discharge: None Plan going forward: Patient is going for a cardiac cath today and plan will come from there. Patientwas recently seen by PT and they recommend VNA at time of discharge. [facility] was routed and pendedat this time. Care Management will continue to follow and assist with discharge planning and coordination of care as indicated. Anticipated Date of Discharge: 05/21/2022 Nataly RICHMOND RN Phone: [phone] Pager: [phone] Plan of Care - Laney Atkins RN [...] from the original note were not included. [facility] [place] [address] [address] INPATIENT CARDIOLOGY CONSULT NOTE Date of Consultation: 05/17/2022 Admit Date: 05/15/2022 Hospital Day 2 days Reason for Consult: New afib Active Problems: Active Hospital Problems Diagnosis Limb ischemia Resolved Hospital Problems No resolved problems to display. HPI: Koko Zamora is a 81 y.o. male with a PMHx significant for MVP (s/p MV repair 2000), tobacco use, HLD, who presented to [facility] from OSH on 05/15 with acute limb ischemia of LLE and was found to be in atrial fibrillation. Patient had sudden onset LLE pain on 05/15 and presented to [facility], where he was started on heparin and transferred to [facility]. Upon arrival to [facility], patient was in atrial fib [...] Biopsy Spine 07/20/2019 Bobby Marshall MD [facility] INTERVENTION[facility] RAD IR VERTEBROPLASTY LUMBAR MULTIPLE LEVELS 07/20/2019 IR Vertebroplasty Lumbar Multiple Levels 07/20/2019 Bobby Marshall MD [facility] INTERVENTION[facility] RAD IR VERTEBROPLASTY THORACIC SINGLE LEVEL 10/25/2020 IR Vertebroplasty Thoracic Single Level 10/25/2020 Matt Chisholm MD [facility] INTERVENTION[facility] RAD PRO EMBLC/THRMBC FEMORAL POPLITEAL AORTO-ILIAC ARTERY Left 05/15/2022 EMBOLECTOMY OR THROMBECTOMY, FEMOROPOPLITEAL, AORTOILIAC ARTERY BY LEG INCISION (WRVU 19.48) performed by Fito Summers MD at [facility] MAIN OR Allergies Allergen Reactions Aspirin Other (See Comments) GI bleed Out-Patient Medications: Medications Prior to Admission Medication Sig Dispense Refill Last Dose fluorouraciL (EFUDEX) 5 % Cream daily. CRESTOR 40 mg Tablet Take 40 mg by mouth daily. fluticasone propionate (FLONASE) 50 mcg/actuation [place], Suspension as needed. ascorbic acid, vitamin C, [...] 5 mL Intravenous BID PHENobarbitaL 0.24 mg/kg/dose ([place]) Oral BID Followed by [START ON 05/18/2022] PHENobarbitaL 0.12 mg/kg/dose ([place]) Oral BID thiamine 100 mg Oral Daily folic acid 1,000 mcg Oral Daily multivitamin with minerals 1 tablet Oral Daily heparin (porcine) infusion 1,200 Units/hr (05/17/22 9282) Family History: No family history on file. [...] to Hosp-Admission (Current) from 05/15/2022 in [facility] Office Visit from 04/17/2021 in Pain and Spine Center at [facility] Weight 79.8 kg (175 lb [...] continue to follow Anne-Marie Larson MD Pager [phone] Clinic: [phone] 05/17/22 6:22 PM Initial Assessments - Ifrah [...] days) Any patient receiving care at [facility] must abide by [place] law. The hierarchy [...] (i) The agent with financial power of privacy attorney or a conservator appointed in accordance [...] raised toilet seat Home Address confirmed as: [address] [place] [address] Social & Family Supports: All names listed below confirmed with patient as Incorrect. Will notify toni to correct. Wifes address is same as and phone is [phone]. Extended Emergency Contact Information Primary Emergency Contact: Ursula Zamora Address: [address] [place] [address] [address] [place] [address] [facility] Relation: Spouse Current Care Provided [...] Type: *No Product type* / Secondary Insurance: [facility] Prescription Coverage: Yes Preferred Pharmacy: [id number] - [place], [place] - [address] [facility] [address] [facility] [address] [id number] - [place], [place] - [address] [facility] [address] [facility] [address] [place] Status: Patient is a : unable to assess Primary Care Provider: Bobby Das MD [phone] Patient/Caregiver Goals of Treatment: to walk again Potential Needs for Transition of Care: none noted per 05/16 IDR Transportation: family will provide Transportation Anticipated: family or friend will provide Concerns to be Addressed: no discharge needs identified Assessment: Patient is admitted to vascular surg service for left lower extremity limb ischemia Plan: Per PT OT recommendations . Has used ANPI in the past. A member of the Care Management team will continue to monitor progress, follow for continuity of care and assist with transition of care planning. Ifrah Bell RN BSN [place] Machine TenderEnvelope Machine Adjuster of Care Management Pager [phone] Brief Op Note - Erin Garza MD - 05/15/2022 5:04 PM EDT Brief Operative Note Patient Name: Koko Zamora : [id number] MR#: [id number] Case Date: 05/15/2022 Surgeon: Surgeon(s) and Role: [...] MD - 05/15/2022 2:08 PM EDT [facility] Operative Note Patient Name: Koko Zamora : [id number] MR#: [id number] Case Date: 05/15/2022 Surgeon: Surgeon(s) and Role: [...] MD [facility] GASTROENTEROLOGY DEPT [place], [place] [address] (Wo rk) 09/05/2022 Appointment Cardiology Trinity Reid MD [facility] CARDIOLOGY [place], [place] 0[address] (Wo rk) 09/05/2022 Office Visit Cardiology Trinity Reid MD [facility] CARDIOLOGY [place], [place] 0[address] (Wo rk) Scheduled Referrals Name [...] Ref Test Analysis Performed At [employer] Range Method Time Signature VB Text Department: Vascular Surgery Lab VASCUBASE Report Patient: [id number] (KOKO ZAMORA) CPT: 93626 Referring Physician: FITO SUMMERS ?? Phone: Indications: s/p L SENIOR ANALYSIS SPECIALIST endart. Diabetes mellitus: no Findings: Right [...] P athologist Signature Heparin UFH 0.42 IU/mL [facility] LABORATORY Comment: Heparin (anti-Xa) levels should be [...] Organization Address City/State/[place] [address] Differential, Automated (05/21/2022 6:15 AM EDT) P athologist Signature Neutrophils % 58.8 % [facility] Neutr Abs (ANC) 3.97 1.70 - [facility] 6.10 [facility] x10(3)[facility] LABORATORY Lymphocytes % 25.2 % [facility] Lymphocytes Abs 1.7 0.9 - 3.2 [facility] x10(3)[facility] LABORATORY Monocytes % 12.9 % [facility] Monocyte Abs 0.9 0.3 - 0.9 [facility] x10(3)[facility] LABORATORY Eosinophils % 2.1 % [facility] Eosinophils Abs 0.1 0.0 - 0.4 [facility] x10(3)[facility] LABORATORY Basophils % 0.4 % [facility] Basophils Abs 0.0 0.0 - 0.1 [facility] x10(3)[facility] LABORATORY Immature Gran % 0.60 % [facility] Comment: Immature granulocytes(IG's)percentage an d absolute count will include metamyelocytes, myelocytes, and promyelo cytes. Blood smears from CBCs yielding IG's will be scanned manually for concor dance. If this scan disagrees with the automated IG or if promyelocytes are not ed, a manual differential will be performed. Rain Gran Abs 0.04 0.00 - 0.04 x10(3)/[facility] MAR Y [facility] LABORATORY Specimen Anatomical Collection Method Collection Time Receive d Time (Source) Location / / Volume Laterality Blood 05/21/2022 6:15 AM 2 6:38 EDT AM EDT Resulting Agency Comment Spec In Lab Edward Rodríguez MD HEMATOLOGY ORDERABLES Performing Organization Address City/State/[place] [address] HOSPITAL [address]ATORY Drive (ABNORMAL) Hemogram (05/21/2022 6:15 AM EDT) [facility] gist Method Time Signature WBC 6.8 4.0 - 9.5 [facility] x10(3)/[facility] LABORATORY RBC 3.59 (L) 4.58 [facility] 5.54 [facility] x10(6)/[facility] LABORATORY Hemoglobin 11.8 (L) 13.7 - [facility] 16.5 g/dL [facility] Hematocrit 34.5 (L) 40.5 - [facility] 48.5 % [facility] MCV 96.1 (H) 82.9 - [facility] 93.1 [facility] LABORATORY MCH 32.9 (H) 27.5 - [facility] 32.1 pg [facility] MCHC 34.2 32.0 - [facility] 35.7 g/dL [facility] Platelets 198 145 - 357 [facility] x10(3)/[facility] LABORATORY RDWSD 44.9 36.0 - [facility] 45.0 [facility] LABORATORY RDWCV 12.6 11.4 [facility] 13.8 % [facility] MPV 10.0 7.6 - 12.9 [facility] LABORATORY nRBC % Auto 0.3 % [facility] LABORATORY nRBC Abs Auto 0.020 (H) 0.000 - [facility] 0.000 [facility] x10(3)/[facility] LABORATORY Specimen Anatomical Collection Method Collection Time Receive d Time (Source) Location / / Volume Laterality Blood 05/21/2022 6:15 AM 2 6:38 EDT AM EDT Resulting Agency Comment Spec In Lab Edward Rodríguez MD HEMATOLOGY ORDERABLES Performing Organization Address City/State/[place] [address] EKG 12 Lead (05/20/2022 7:04 PM EDT) Component Value Ref Range Test Analysis Performed Pathologis t Method Time At Signature Ventricular rate 101 BPM MUSE SYSTEM QRS Duration 116 ms MUSE SYSTEM Q-T Interval 378 ms MUSE SYSTEM QTC Calculated 490 ms MUSE SYSTEM (Bezet) Calculated R [place] -53 degrees MUSE SYSTEM Calculated T [place] 101 degrees MUSE SYSTEM INTERPRETATION Atrial fibrillation [...] SYSTEM - 05/20/2022 7:09 PM ED T ?[facility] ? Cardiac Cathete rization/Intervention Report ? Patient Name: Koko Zamora. ? Procedure Date: 05/20/2022 ? A #: [id number] ? Primary Physician: Abundio Servin ? Case #: [id number] ? File Name: [id number] ? Catheterization Order Number: [id number] ? [facility] ?Supervisor [facility] ? Final Report [place], [place] ? Patient Name: ? Koko J. Klarissa uson ? ID#: ?[id number] ? : ?1940 ? Procedure Date: ? [...] Urgent. The indication for ?the chemical laboratory tester visit is cardiomyo nita. Chest pain symptom [...] ?3.5 guiding catheter and a 3.5 Fr [place] [facility] [place] [address] ??20 Mhz. ??Imaging ?was successful. ??Image [...] A premounted 2. 75 x 30 mm [place] (AMPARO) was deployed ? with a maximum [...] ?modification of this regimen. C [facility] Interventional Cardiology for ?questions. ?The [...] 123 65 - 199 [facility] mg/dL [facility] LABORATORY Comment: Supplemental ranges: <140 mg/dL before meals <180 mg/dL all other times of the day Specimen Anatomical Collection Method Collection Time Receive d Time (Source) Location / / Volume Laterality Blood 05/20/2022 5:42 PM 5:42 EDT PM EDT Fito Summers MD POINT OF CARE TEST ORDERABLE S Performing Organization Address City/State/[place] [address] (ABNORMAL) BMP w/fasting Glucose (05/20/2022 10:50 AM EDT) P athologist Signature Glucose 152 (H) 65 - 99 [facility] Fasting mg/dL [facility] LABOR[facility] Comment: ?Fasting* Glucose Interpretive C [...] of Diabetes Mellitus, Position Statement from the [place] [employer]. ??Diabete s Care, Volume 33, Supplement 1, Nov 2009 BUN 11 10 - 20 mg/dL [facility] LABORATORY Creatinine 0.63 (L) 0.80 - 1.50 mg/dL [facility] LABORATORY Sodium 137 135 - 145 mmol/L [facility] LABORATORY Potassium 3.6 3.5 - 5.0 mmol/L [facility] LABORATORY Comment: Please note: ??Patients with WBC >100,00 0 may have falsely elevated Potassium levels. ??For accurate Potassium quantif ication in these patients send serum separator tube (gold top) for subsequent determinations. ??Contact the Clinical Chemistry Laboratory if there are any qu estions. Chloride 103 98 - 107 mmol/L [facility] LABORATORY CO2 24 22 - 31 mmol/L [facility] LABORATORY Anion Gap 10 5 - 15 mmol/L [facility] LABORATORY Calcium 8.7 8.5 - 10.5 mg/dL [facility] LABORATORY Estimated GFR 97 >=60 mL/min/1.73 m?? [facility] LABORATORY [...] Organization Address City/State/[place] [address] Heparin (unfractionated) Level (05/20/2022 5:02 AM EDT) athologist Signature Heparin UFH 0.57 IU/mL [facility] LABORATORY Comment: Heparin (anti-Xa) levels should be [...] Organization Address City/State/[place] [address] (ABNORMAL) Differential, Automated (05/20/2022 5:02 AM EDT) [employer] Method Time Signature Neutrophils % 58.1 % [facility] LABORATORY Neutr Abs (ANC) 4.52 1.70 - [facility] 6.10 [facility] x10(3)/[facility] LABORATORY Lymphocytes % 24.1 % [facility] LABORATORY Lymphocytes Abs 1.9 0.9 - 3.2 [facility] x10(3)/[facility] LABORATORY Monocytes % 13.8 % [facility] LABORATORY Monocyte Abs 1.1 (H) 0.3 - 0.9 [facility] x10(3)/[facility] LABORATORY Eosinophils % 2.6 % [facility] LABORATORY Eosinophils Abs 0.2 0.0 - 0.4 [facility] x10(3)/[facility] LABORATORY Basophils % 0.8 % [facility] LABORATORY Basophils Abs 0.1 0.0 - 0.1 [facility] x10(3)/[facility] LABORATORY Immature Gran % 0.60 % [facility] LABORATORY Comment: Immature granulocytes(IG's)percentage an d absolute count will include metamyelocytes, myelocytes, and promyelo cytes. Blood smears from CBCs yielding IG's will be scanned manually for concor dance. If this scan disagrees with the automated IG or if promyelocytes are not ed, a manual differential will be performed. Rain Gran Abs 0.05 (H) 0.00 - 0.04 x10(3)/[facility] LABORATORY Specimen Anatomical Collection Method Collection Time Receive d Time (Source) Location / / Volume Laterality Blood 05/20/2022 5:02 AM 5:19 EDT AM EDT Resulting Agency Comment Spec In Lab Edward Rodríguez MD HEMATOLOGY ORDERABLES Performing Organization Address City/State/[place] [address] (ABNORMAL) Hemogram (05/20/2022 5:02 AM EDT) Analysis Performed At Patho logist Time Signature WBC 7.8 4.0 - 9.5 [facility] x10(3)/[facility] LABORATORY RBC 3.53 (L) 4.58 - [facility] 5.54 [facility] x10(6)/[facility] LABORATORY Hemoglobin 11.4 (L) 13.7 - [facility] 16.5 g/dL [facility]OR[facility] Hematocrit 34.3 (L) 40.5 - [facility] XIAO 48.5 % [facility] LABORATORY MCV 97.2 (H) 82.9 - [facility] 93.1 [facility] LABORATORY MCH 32.3 (H) 27.5 - [facility]O 32.1 pg [facility] MCHC 33.2 32.0 - [facility] 35.7 g/dL [facility]OR[facility] Platelets 181 145 - 357 [facility] x10(3)/[facility] LABORATORY RDWSD 46.4 (H) 36.0 - [facility] XIAO 45.0 [facility] LABORATORY RDWCV 13.0 11.4 - [facility] 13.8 % [facility] LABORATORY MPV 10.4 7.6 - 12.9 [facility] LABORATORY nRBC % Auto 0.0 % [facility] LABORATORY nRBC Abs Auto 0.000 0.000 - [facility] 0.000 [facility] x10(3)/[facility] LABORATORY Specimen Anatomical Collection Method Collection Time Receive d Time (Source) Location / / Volume Laterality Blood 05/20/2022 5:02 AM 2 5:19 EDT AM EDT Resulting Agency Comment Spec In Lab Edward Rodríguez MD HEMATOLOGY ORDERABLES Performing Organization Address City/[facility]/ZIP Code Phon e Number [place] [phone] HOSPITAL LAB[address]ORY Drive Heparin (unfractionated) Level (05/19/2022 3:26 AM EDT) P athologist Signature Heparin UFH 0.59 IU/mL [facility] LABORATORY Comment: Heparin (anti-Xa) levels should be deter mined in a plasma sample that has been drawn 6 hours after a dose change to leoopldo roximate steady-state for continuous heparin infusions. Indication [...] Summers MD HEMATOLOGY ORDERABLES Performing Organization Address City/[facility]/ZIP Code Phon e Number [address] (ABNORMAL) Differential, Automated (05/19/2022 3:26 AM EDT) Patholo gist Method Time Signature Neutrophils % 62.1 % [facility] LABORATORY Neutr Abs (ANC) 4.59 1.70 - [facility] 6.10 [facility] x10(3)/[facility] LABORATORY Lymphocytes % 22.1 % [facility] LABORATORY Lymphocytes Abs 1.6 0.9 - 3.2 [facility] x10(3)/[facility] LABORATORY Monocytes % 13.5 % [facility] LABORATORY Monocyte Abs 1.0 (H) 0.3 - 0.9 [facility] x10(3)/[facility] LABORATORY Eosinophils % 1.3 % [facility] LABORATORY Eosinophils Abs 0.1 0.0 - 0.4 [facility] x10(3)/[facility] LABORATORY Basophils % 0.5 % [facility] LABORATORY Basophils Abs 0.0 0.0 - 0.1 [facility] x10(3)/[facility] LABORATORY Immature Gran % 0.50 % [facility] LABORATORY Comment: Immature granulocytes(IG's)percentage an d absolute count will include metamyelocytes, myelocytes, and promyelo cytes. Blood smears from CBCs yielding IG's will be scanned manually for concor dance. If this scan disagrees with the automated IG or if promyelocytes are not ed, a manual differential will be performed. Rain Gran Abs 0.04 0.00 - 0.04 x10(3)/[facility] MAR Y [facility] LABORATORY Specimen Anatomical Collection Method Collection Time Receive d Time (Source) Location / / Volume Laterality Blood 05/19/2022 3:26 AM 2 3:59 EDT AM EDT Resulting Agency Comment Spec In Lab Edward Rodríguez MD HEMATOLOGY ORDERABLES Performing Organization Address City/State/[place] [address] (ABNORMAL) Hemogram (05/19/2022 3:26 AM EDT) Analysis Performed At Patho logist Time Signature WBC 7.4 4.0 - 9.5 [facility] x10(3)/[facility] LABORATORY RBC 3.74 (L) 4.58 - [facility] 5.54 [facility] x10(6)/[facility] LABORATORY Hemoglobin 12.1 (L) 13.7 - [facility] [place] 16.5 g/dL [facility] LABOR[facility] Hematocrit 36.4 (L) 40.5 - [facility] 48.5 % [facility]OR[facility] MCV 97.3 (H) 82.9 - [facility] 93.1 [facility] LABORATORY MCH 32.4 (H) 27.5 - [facility] 32.1 pg [facility] MCHC 33.2 32.0 - [facility] [place] 35.7 g/dL [facility] Platelets 168 145 - 357 [facility] x10(3)/[facility] LABORATORY RDWSD 46.9 (H) 36.0 - [facility] 45.0 [facility] LABORATORY RDWCV 13.0 11.4 - [facility] 13.8 % [facility] LABOR[facility] MPV 10.5 7.6 - 12.9 [facility] LABORATORY nRBC % Auto 0.0 % [facility] LABORATORY nRBC Abs Auto 0.000 0.000 - [facility] 0.000 [facility] x10(3)/[facility] LABORATORY Specimen Anatomical Collection Method Collection Time Receive d Time (Source) Location / / Volume Laterality Blood 05/19/2022 3:26 AM 2 3:59 EDT AM EDT Resulting Agency Comment Spec In Lab Edward Rodríguez MD HEMATOLOGY ORDERABLES Performing Organization Address City/State/[place] [address] TSH (05/18/2022 8:00 PM EDT) P athologist Signature TSH 2.27 0.27 - 4.20 [facility] mcIU/mL [facility] LABORATORY Comment: Reference Interval (mcIU/mL): Females: ??First Trimester: 0.23-3.88 ??Second Trimester: 0.22-3.90 ??Third Trimester: 0.44-4.66 Specimen Anatomical Collection Method Collection Time Receive d Time (Source) Location / / Volume Laterality Blood 05/18/2022 8:00 PM 8:06 EDT PM EDT Resulting Agency Comment Spec In Lab Fito Summers MD CHEMISTRY ORDERABLES Performing Organization Address City/[facility]/ZIP Code Phon e Number [place] [phone] [facility] LABORATORY Drive (ABNORMAL) Differential, Automated (05/18/2022 3:34 AM EDT) [employer] Method Time Signature Neutrophils % 67.2 % [facility] LABORATORY Neutr Abs (ANC) 5.89 1.70 - [facility] 6.10 [facility] x10(3)/[facility] LABORATORY Lymphocytes % 17.1 % [facility] LABORATORY Lymphocytes Abs 1.5 0.9 - 3.2 [facility] x10(3)/[facility] LABORATORY Monocytes % 13.6 % [facility] LABORATORY Monocyte Abs 1.2 (H) 0.3 - 0.9 [facility] x10(3)/[facility] LABORATORY Eosinophils % 1.0 % [facility] LABORATORY Eosinophils Abs 0.1 0.0 - 0.4 [facility] x10(3)/[facility] LABORATORY Basophils % 0.6 % [facility] LABORATORY Basophils Abs 0.0 0.0 - 0.1 [facility] x10(3)/[facility] LABORATORY Immature Gran % 0.50 % [facility] LABORATORY Comment: Immature granulocytes(IG's)percentage an d absolute count will include metamyelocytes, myelocytes, and promyelo cytes. Blood smears from CBCs yielding IG's will be scanned manually for concor dance. If this scan disagrees with the automated IG or if promyelocytes are not ed, a manual differential will be performed. Rain Gran Abs 0.04 0.00 - 0.04 x10(3)/[facility] MAR Y [facility] LABORATORY Specimen Anatomical Collection Method Collection Time Receive d Time (Source) Location / / Volume Laterality Blood 05/18/2022 3:34 AM 3:48 EDT AM EDT Resulting Agency Comment Spec In Lab Edward Rodríguez MD HEMATOLOGY ORDERABLES Performing Organization Address City/[facility]/[place] [address] (ABNORMAL) Hemogram (05/18/2022 3:34 AM EDT) Analysis Performed At Patho logist Time Signature WBC 8.8 4.0 - 9.5 [facility] x10(3)/[facility] LABORATORY RBC 3.45 (L) 4.58 - [facility] 5.54 [facility] x10(6)/[facility] LABORATORY Hemoglobin 11.2 (L) 13.7 - [facility] 16.5 g/dL [facility] Hematocrit 33.0 (L) 40.5 - [facility] 48.5 % [facility] MCV 95.7 (H) 82.9 - [facility] 93.1 [facility] LABORATORY MCH 32.5 (H) 27.5 - [facility] 32.1 pg [facility] MCHC 33.9 32.0 - [facility] 35.7 g/dL [facility] Platelets 130 (L) 145 - 357 [facility] x10(3)/[facility] LABORATORY RDWSD 46.2 (H) 36.0 - [facility] 45.0 [facility] LABORATORY RDWCV 13.2 11.4 [facility] 13.8 % [facility] LABORAT[facility] MPV 10.8 7.6 - 12.9 [facility] LABORATORY nRBC % Auto 0.0 % [facility] LABORATORY nRBC Abs Auto 0.000 0.000 - [facility] 0.000 [facility] x10(3)/[facility] LABORATORY Specimen Anatomical Collection Method Collection Time Receive d Time (Source) Location / / Volume Laterality Blood 05/18/2022 3:34 AM 3:48 EDT AM EDT Resulting Agency Comment Spec In Lab Edward Rodríguez MD HEMATOLOGY ORDERABLES Performing Organization Address City/State/[place] [address] Heparin (unfractionated) Level (05/18/2022 3:34 AM EDT) P athologist Signature Heparin UFH 0.59 IU/mL [facility] LABORATORY Comment: Heparin (anti-Xa) levels should be [...] Summers MD HEMATOLOGY ORDERABLES Performing Organization Address City/[facility]/[place] [address] Magnesium (05/17/2022 3:33 AM EDT) athologist Signature Magnesium 0.76 0.69 - 1.07 [facility] mmol/L [facility] LABORATORY Specimen Anatomical Collection Method Collection Time Receive d Time (Source) Location / / Volume Laterality Blood Venous Draw / 05/17/2022 3:33 AM 05/17/20 4:05 Unknown EDT AM EDT Resulting Agency Comment Spec In Lab Dottei Hill APRN CHEMISTRY ORDERABLES Performing Organization Address City/[facility]/[place] [address] (ABNORMAL) Basic Metabolic Panel (non-fasting) (05/17/2022 3:33 AM EDT) athologist Signature Glucose Lvl 158 65 - 199 [facility] mg/dL [facility] LABORATORY Comment: Diabetes: >=200 mg/dL plus symp toms BUN 12 10 - 20 mg/dL [facility] LABORATORY Creatinine 0.74 (L) 0.80 - 1.50 mg/dL [facility] LABORATORY Sodium 137 135 - 145 mmol/L [facility] LABORATORY Potassium 3.5 3.5 - 5.0 mmol/L [facility] LABORATORY Comment: Please note: ??Patients with WBC >100,00 0 may have falsely elevated Potassium levels. ??For accurate Potassium quantif ication in these patients send serum separator tube (gold top) for subsequent determinations. ??Contact the Clinical Chemistry Laboratory if there are any qu estions. Chloride 102 98 - 107 mmol/L [facility] LABORATORY CO2 25 22 - 31 mmol/L [facility] LABORATORY Anion Gap 10 5 - 15 mmol/L [facility] LABORATORY Calcium 8.4 (L) 8.5 - 10.5 mg/dL [facility] LABORATORY Estimated GFR 92 >=60 mL/min/1.73 m?? [facility] LABORATORY [...] Organization Address City/State/[place] [address] (ABNORMAL) Differential, Automated (05/17/2022 3:33 AM EDT) [employer] Method Time Signature Neutrophils % 65.5 % [facility] LABORATORY Neutr Abs (ANC) 6.84 (H) 1.70 - [facility] 6.10 [facility] x10(3)/[facility] LABORATORY Lymphocytes % 19.7 % [facility] LABORATORY Lymphocytes Abs 2.1 0.9 - 3.2 [facility] x10(3)/[facility] LABORATORY Monocytes % 13.1 % [facility] LABORATORY Monocyte Abs 1.4 (H) 0.3 - 0.9 [facility] x10(3)/[facility] LABORATORY Eosinophils % 0.6 % [facility] LABORATORY Eosinophils Abs 0.1 0.0 - 0.4 [facility] x10(3)/[facility] LABORATORY Basophils % 0.6 % [facility] LABORATORY Basophils Abs 0.1 0.0 - 0.1 [facility] x10(3)/[facility] LABORATORY Immature Gran % 0.50 % [facility] LABORATORY Comment: Immature granulocytes(IG's)percentage an d absolute count will include metamyelocytes, myelocytes, and promyelo cytes. Blood smears from CBCs yielding IG's will be scanned manually for concor dance. If this scan disagrees with the automated IG or if promyelocytes are not ed, a manual differential will be performed. Rain Gran Abs 0.05 (H) 0.00 - 0.04 x10(3)/[facility] LABORATORY Specimen Anatomical Collection Method Collection Time Receive d Time (Source) Location / / Volume Laterality Blood 05/17/2022 3:33 AM 3:53 EDT AM EDT Resulting Agency Comment Spec In Lab Edward Rodríguez MD HEMATOLOGY ORDERABLES Performing Organization Address City/State/[place] [address] (ABNORMAL) Hemogram (05/17/2022 3:33 AM EDT) Analysis Performed At Patho logist Time Signature WBC 10.4 (H) 4.0 - 9.5 [facility] x10(3)/[facility] LABORATORY RBC 3.72 (L) 4.58 - [facility] 5.54 [facility] x10(6)/[facility] LABORATORY Hemoglobin 12.0 (L) 13.7 - [facility] 16.5 g/dL [facility] Hematocrit 36.4 (L) 40.5 - [facility] 48.5 % [facility] MCV 97.8 (H) 82.9 - [facility] [place] 93.1 [facility] LABORATORY MCH 32.3 (H) 27.5 - [facility] 32.1 pg [facility] MCHC 33.0 32.0 - [facility] [place] 35.7 g/dL [facility] Platelets 149 145 - 357 [facility] x10(3)/[facility] LABORATORY RDWSD 48.7 (H) 36.0 - [facility] [place] 45.0 [facility] LABORATORY RDWCV 13.5 11.4 - [facility] 13.8 % [facility] MPV 10.6 7.6 - 12.9 [facility] LABORATORY nRBC % Auto 0.0 % [facility] LABORATORY nRBC Abs Auto 0.000 0.000 - [facility] 0.000 [facility] x10(3)/[facility] LABORATORY Specimen Anatomical Collection Method Collection Time Receive d Time (Source) Location / / Volume Laterality Blood 05/17/2022 3:33 AM 3:53 EDT AM EDT Resulting Agency Comment Spec In Lab Edward Rodríguez MD HEMATOLOGY ORDERABLES Performing Organization Address City/State/[place] [address] (ABNORMAL) Urinalysis Microscopic Exam (05/16/2022 11:15 PM EDT) P athologist Signature RBC UA 8 (H) 0 - 3 /HPF [facility] LABORATORY WBC UA 2 0 - 3 /HPF [facility] LABORATORY Specimen Anatomical Collection Method Collection Time Receive d Time (Source) Location / / Volume Laterality Clean Catch 05/16/2022 11:15 05/16/2022 Urine PM EDT 11:30 PM EDT Resulting Agency Comment Spec In Lab Barbie Ashraf MD URINE ORDERABLES Performing Organization Address City/State/[place] [address] (ABNORMAL) Urinalysis with reflex Culture (05/16/2022 11:15 PM EDT) Patholo gist Method Time Signature Glucose UA Negative Negative [facility] mg/dL [facility] Protein UA Negative Negative [facility] mg/dL [facility] Bilirubin UA Negative Negative [facility] mg/dL [facility] Comment: Clinical correlation required for positi ve Urine Bilirubin results as false positive may occur with some drugs and d rug related products. If a false positive is suspected a serum total bili quarles should be considered if clinically indicated. Urobilinogen UA Normal Normal mg/dL [facility]OR[facility] pH UA 6.0 5.0 - 8.0 [facility] LABORATORY Blood UA Small (A) Negative mg/dL [facility] LABOR[facility]ORY Ketones UA Trace (A) Negative mg/dL [facility] Nitrite UA Negative Negative [facility] LABORATORY Leukocytes UA Negative Negative [facility] LABORATORY Appearance UA Clear Clear [facility] LABORATORY Spec [place] UA 1.021 1.005 - 1.030 [facility] LABORATORY Color UA Yellow Yellow [facility] LABORATORY Culture Reflexed No [facility] LABORATORY Specimen Anatomical Collection Method Collection Time Receive d Time (Source) Location / / Volume Laterality Clean Catch 05/16/2022 11:15 05/16/2022 Urine PM EDT 11:30 PM EDT Resulting Agency Comment Spec In Lab Fito Summers MD URINE ORDERABLES Performing Organization Address City/State/[place] [address] Heparin (unfractionated) Level (05/16/2022 10:59 PM EDT) P athologist Signature Heparin UFH 0.65 IU/mL [facility] LABORAT[facility] Comment: Specimen drawn more than one [...] Organization Address City/State/[place] [address] XR Chest One View [...] questions please contact the health critical care physician assistant that requested your imaging first. ? [...] questions please contact the health critical care physician assistant that requested your imaging first. Electronically signed by: Tiffanie George MD , [facility] ([phone]), at 05/16/2022 9:27 PM Fito Summers MD IMG DX ORDERABLES EKG 12 Lead (05/16/2022 8:57 PM EDT) Component Value Ref Range Test Analysis Performed Pathologis t Method Time At Signature Ventricular rate 117 BPM MUSE SYSTEM QRS Duration 112 ms MUSE SYSTEM Q-T Interval 346 ms MUSE SYSTEM QTC Calculated 482 ms MUSE SYSTEM (Bezet) Calculated R [place] -48 degrees MUSE SYSTEM Calculated T [place] 111 degrees MUSE SYSTEM INTERPRETATION Atrial fibrillation with rapid ventricular response MUSE SYSTEM Left anterior fascicular block Minimal voltage criteria for LVH, may be normal variant ( [place] product ) Nonspecific ST and T wave [...] Summers MD ECG ORDERABLES Performing Organization Address City/[facility]/ZIP Code Phon e Number MUSE SYSTEM Heparin (unfractionated) Level (05/16/2022 4:34 PM EDT) P athologist Signature Heparin UFH 0.53 IU/mL [facility] Comment: Heparin (anti-Xa) levels should be [...] Summers MD HEMATOLOGY ORDERABLES Performing Organization Address City/[facility]/[place] [address] ECHOCARDIOGRAM COMPLETE W CONTRAST (05/16/2022 12:49 PM EDT) P athologist Signature EF 28 HEARTLAB SYSTEM Specimen (Source) Anatomical Collection Method Collection Time Re ceived Time Location / / Volume Laterality 05/16/2022 11:22 AM EDT Narrative HEARTLAB SYSTEM - 05/16/2022 1:54 PM EDT ?[facility] ? Medical Center ?[address] ? [place] [address] ?Voice: ?Fax: ? Echocardiogram Report Name: KOKO ZAMORA J ?Study Date: 05/16/2022 11:22 AM ? Patient Location: 3WST 0303 B : 1940 ? Height: 67.5 in ? Account: [id number] Age: 81 yrs ? Weight: 176 lb Gender: Male ?BSA: 1.9 m2 Ordering Physician: FITO SUMMERS Referring Physician: MALI FLORIAN Performed By: Jolene Bernard RDCS Exam Location: [facility]. Interpretation Summary Left ventricle is [...] and LV systolic dysfunction are new. Procedure Complete-[id number]. Image enhancement Optiso n was used for [...] note might be different from the original. [facility] [address] [place] [address] Voice: Fax: Echocardiogram Report Name: KOKO ZAMORA Study Date: 05/2022 11:22 AM Patient Location: [facility] 0 303 : 1940 Height: 67.5 in Account: [id number] Age: 81 yrs Weight: 176 lb Gender: Male BSA: 1.9 m2 Ordering Physician: FITO SUMMERS Referring Physician: MALI FLORIAN Performed By: Jolene Bernard [facility] Exam Location: [facility]. Interpretation Summary Left ventricle is [...] and LV systolic dysfunction are new. Procedure Complete-[id number]. Image enhancement Optiso n was used for [...] (ABNORMAL) Differential, Automated (05/16/2022 3:01 AM EDT) [employer] Method Time Signature Neutrophils % 78.8 % [facility] Neutr Abs (ANC) 9.11 (H) 1.70 - [facility] 6.10 [facility] x10(3)/[facility] LABORATORY Lymphocytes % 9.4 % [facility] Lymphocytes Abs 1.1 0.9 - 3.2 [facility] x10(3)/[facility] LABORATORY Monocytes % 10.9 % [facility] Monocyte Abs 1.3 (H) 0.3 - 0.9 [facility] x10(3)/[facility] LABORATORY Eosinophils % 0.0 % [facility] Eosinophils Abs 0.0 0.0 - 0.4 [facility] x10(3)/[facility] LABORATORY Basophils % 0.3 % [facility] Basophils Abs 0.0 0.0 - 0.1 [facility] x10(3)/[facility] LABORATORY Immature Gran % 0.60 % [facility] Comment: Immature granulocytes(IG's)percentage an d absolute count will include metamyelocytes, myelocytes, and promyelo cytes. Blood smears from CBCs yielding IG's will be scanned manually for concor dance. If this scan disagrees with the automated IG or if promyelocytes are not ed, a manual differential will be performed. Rain Gran Abs 0.07 (H) 0.00 - 0.04 x10(3)/[facility] LABORATORY Specimen Anatomical Collection Method Collection Time Receive d Time (Source) Location / / Volume Laterality Blood 05/16/2022 3:01 AM 3:36 EDT AM EDT Resulting Agency Comment Spec In Lab Erin Garza MD HEMATOLOGY ORDERABLES Performing Organization Address City/State/[place] [address] (ABNORMAL) Hemogram (05/16/2022 3:01 AM EDT) Analysis Performed At Patho logist Time Signature WBC 11.6 (H) 4.0 - 9.5 [facility] x10(3)/[facility] LABORATORY RBC 3.62 (L) 4.58 [facility] 5.54 [facility] x10(6)/[facility] LABORATORY Hemoglobin 12.0 (L) 13.7 - [facility] 16.5 g/dL [facility] Hematocrit 35.3 (L) 40.5 - [facility] 48.5 % [facility] MCV 97.5 (H) 82.9 - [facility] 93.1 [facility] LABORATORY MCH 33.1 (H) 27.5 - [facility] 32.1 pg [facility] MCHC 34.0 32.0 - [facility] 35.7 g/dL [facility] Platelets 151 145 - 357 [facility] x10(3)/[facility] RDWSD 47.6 (H) 36.0 - [facility] 45.0 [facility] RDWCV 13.3 11.4 - [facility] 13.8 % [facility] MPV 10.5 7.6 - 12.9 [facility] LABORATORY nRBC % Auto 0.0 % [facility] nRBC Abs Auto 0.000 0.000 - [facility] 0.000 [facility] x10(3)/[facility] LABORATORY Specimen Anatomical Collection Method Collection Time Receive d Time (Source) Location / / Volume Laterality Blood 05/16/2022 3:01 AM 2 3:36 EDT AM EDT Resulting Agency Comment Spec In Lab Erin Garza MD HEMATOLOGY ORDERABLES Performing Organization Address City/State/ZIP Code Phon e Number [address] Phosphorus (05/16/2022 3:01 AM EDT) athologist Signature Phosphorus 3.7 2.5 - 4.5 [facility] mg/dL [facility] Specimen Anatomical Collection Method Collection Time Receive d Time (Source) Location / / Volume Laterality Blood 05/16/2022 3:01 AM 2 3:36 EDT AM EDT Resulting Agency Comment Spec In Lab Fito Summers MD CHEMISTRY ORDERABLES Performing Organization Address City/State/ZIP Code Phon e Number [address] Magnesium (05/16/2022 3:01 AM EDT) P athologist Signature Magnesium 0.77 0.69 - 1.07 [facility] mmol/L [facility] Specimen Anatomical Collection Method Collection Time Receive d Time (Source) Location / / Volume Laterality Blood 05/16/2022 3:01 AM 2 3:36 EDT AM EDT Resulting Agency Comment Spec In Lab Fito Summers MD CHEMISTRY ORDERABLES Performing Organization Address City/[facility]/ZIP Code Phon e Number [address] (ABNORMAL) Basic Metabolic Panel (non-fasting) (05/16/2022 3:01 AM EDT) P athologist Signature Glucose Lvl 222 (H) 65 - 199 [facility] mg/dL [facility] Comment: Diabetes: >=200 mg/dL plus symp toms BUN 12 10 - 20 mg/dL [facility] Creatinine 0.66 (L) 0.80 - 1.50 mg/dL [facility] Sodium 138 135 - 145 mmol/L [facility] Potassium 4.5 3.5 - 5.0 mmol/L [facility] Comment: Please note: ??Patients with WBC >100,00 0 may have falsely elevated Potassium levels. ??For accurate Potassium quantif ication in these patients send serum separator tube (gold top) for subsequent determinations. ??Contact the Clinical Chemistry Laboratory if there are any qu estions. Chloride 108 (H) 98 - 107 mmol/L [facility] CO2 22 22 - 31 mmol/L [facility] Anion Gap 8 5 - 15 mmol/L [facility] Calcium 8.2 (L) 8.5 - 10.5 mg/dL [facility] Estimated GFR 95 >=60 mL/min/1.73 m?? [facility] [...] Organization Address City/State/[place] [address] (ABNORMAL) BLOOD GAS 2 ARTERIAL (05/15/2022 3:33 PM EDT) Analysis Performed At Patho logist Time Signature pH Art 7.33 (L) 7.35 - [facility] 7.45 [facility] pCO2 Art 41 35 - 45 [facility] LABORATORY pO2 Art 131 (H) 85 - 104 [facility] LABORATORY HCO3 Art 21.1 20.0 - [facility] 26.0 [facility] mmol/L [facility] LABORATORY BE Art -4.8 (L) -3.0 - 3.0 [facility] mmol/L [facility] Hgb Blood Gas 13.4 (L) 13.7 - [facility] 16.5 g/dL [facility] O2HB Art 96.9 94.0 - [facility] 97.0 % [facility] COHB Art 1.4 % [facility] Comment: Nonsmokers: 0.5-1.5% COHB Smokers: Variable, but usually less than 10% Toxic: 20-30% COHB Lethal: Greater than 60% COHB METHB Art 0.3 <=1.5 % [facility] LAB[facility] Na Whole Blood 139 135 - 145 mmol/L [facility] K Whole Blood 3.8 3.5 - 5.0 mmol/L [facility] Comment: Please note: Patients with WBC >100,000 may have falsely elevated Potassium levels. Contact the Clinical Chemistry L aboratory if there are any questions. ICa Whole Blood 1.32 1.15 - 1.33 mmol/L [facility] [...] Organization Address City/State/[place] [address] (ABNORMAL) BLOOD GAS 2 ARTERIAL (05/15/2022 2:06 PM EDT) Analysis Performed At Patho logist Time Signature pH Art 7.39 7.35 - [facility] 7.45 [facility] pCO2 Art 35 35 - 45 [facility] mmHg [facility] pO2 Art 135 (H) 85 - 104 [facility] LABORATORY HCO3 Art 20.8 20.0 - [facility] 26.0 [facility] mmol/L [facility] LABORATORY BE Art -4.2 (L) -3.0 - 3.0 [facility] mmol/L [facility] Hgb Blood Gas 14.5 13.7 - [facility] 16.5 g/dL [facility] O2HB Art 97.2 (H) 94.0 - [facility] 97.0 % [facility] COHB Art 1.2 % [facility] Comment: Nonsmokers: 0.5-1.5% COHB Smokers: Variable, but usually less than 10% Toxic: 20-30% COHB Lethal: Greater than 60% COHB METHB Art 0.3 <=1.5 % [facility] Na Whole Blood 140 135 - 145 mmol/L [facility] K Whole Blood 3.8 3.5 - 5.0 mmol/L [facility] Comment: Please note: Patients with WBC >100,000 may have falsely elevated Potassium levels. Contact the Clinical Chemistry L aboratory if there are any questions. ICa Whole Blood 1.12 (L) 1.15 - 1.33 mmol/L [facility] Comment: Note: ??Total bilirubin higher than 20 m g/dL may lead to falsely low ionized calcium. CL Whole Blood 109 (H) 98 - 107 mmol/L [facility] Gluc Whole Bld 152 65 - 199 mg/dL [facility] Comment: Diabetes: >=200 mg/dL plus symp toms. Lactate WB 1.5 0.5 - 2.2 mmol/L [facility] LABOR[facility]ORY Specimen Anatomical Collection Method Collection Time Receive d Time (Source) Location / / Volume Laterality Blood 05/15/2022 2:06 PM 2:[address] Jamel Torre MD CHEMISTRY ORDERABLES Performing Organization Address City/[facility]/ZIP [facility] Phon e Number [place] [phone]OS[address] LAB[address]ORY Drive (ABNORMAL) Prothrombin Time (05/15/2022 12:30 PM EDT) P athologist Signature PT 12.9 (H) 9.4 - 12.5 [facility] LABORATORY INR 1.1 [facility] Comment: An INR [...] Morales DO HEMATOLOGY ORDERABLES Performing Organization Address [facility] [place] [address] (ABNORMAL) APTT (05/15/2022 12:30 PM EDT) P athologist Signature PTT 76 (H) 25 - 37 sec [facility] Comment: The PTT is NOT [...] Organization Address City/State/[place] [address] Gold Tube HOLD (05/15/2022 12:20 PM EDT) P athologist Signature Gold Hold Sample in [facility]. [facility] Specimen Anatomical Collection Method Collection Time Receive d Time (Source) Location / / Volume Laterality Blood No Charge / 05/15/2022 12:20 05/15/2022 Unknown PM EDT 12:20 PM EDT Lc Tan Kimberly PA CHEMISTRY ORDERABLES Performing Organization Address City/[facility]/ZIP Code Phon e Number [address] Type and Screen Validity (05/15/2022 12:00 PM EDT) [employer] Method Time Signature T&S only valid [facility] LABORATORY Comment: This Type and Screen result is only valid at the [facility] Specimen Anatomical Collection Method Collection Time Receive d Time (Source) Location / / Volume Laterality Blood 05/15/2022 12:00 05/15/2022 PM EDT 12:17 PM EDT Resulting Agency Comment Spec In Lab Lc Lillyon PA BLOOD BANK ORDERABLES Performing Organization Address City/[facility]/ZIP Code Phon e Number [address] ABORH Recheck Status (05/15/2022 12:00 PM EDT) [employer] Method Time Signature ABORH Recheck Order Placed [facility] K Order [facility] ABORH Type Complete [facility] LABORATORY Specimen Anatomical Collection Method Collection Time Receive d Time (Source) Location / / Volume Laterality Blood 05/15/2022 12:00 05/15/2022 PM EDT 12:17 PM EDT Resulting Agency Comment Spec In Lab Lc Lillyon PA BLOOD BANK ORDERABLES Performing Organization Address City/State/[place] [address] CK (05/15/2022 12:00 PM EDT) P athologist Signature CK, Total 87 0 - 200 [facility] unit/L [facility] Specimen Anatomical Collection Method Collection Time Receive d Time (Source) Location / / Volume Laterality Blood Venous Draw / 05/15/2022 12:00 05/15/2022 Unknown PM EDT 12:19 PM EDT Resulting Agency Comment Spec In Lab Fito Summers MD CHEMISTRY ORDERABLES Performing Organization Address City/State/[place] [address] Antibody screen (05/15/2022 12:00 PM EDT) [employer] Method Time Signature Ab Screen Negative [facility] LABORATORY Expires at 05/18/2022 [facility] [id number] on: [facility] Specimen Anatomical Collection Method Collection Time Receive d Time (Source) Location / / Volume Laterality Blood 05/15/2022 12:00 05/15/2022 PM EDT 12:17 PM EDT Resulting Agency Comment Spec In Lab Lc TRIPP BLOOD BANK ORDERABLES Performing Organization Address City/[facility]/ZIP Code Phon e Number [address] ABO/Rh Typing (05/15/2022 12:00 PM EDT) athologist Signature ABORh Type O Pos [facility] Specimen Anatomical Collection Method Collection Time Receive d Time (Source) Location / / Volume Laterality Blood 05/15/2022 12:00 05/15/2022 PM EDT 12:17 PM EDT Resulting Agency Comment Spec In Lab Lc TRIPP BLOOD BANK ORDERABLES Performing Organization Address City/[facility]/ZIP Code Phon e Number [address] (ABNORMAL) Differential, Automated (05/15/2022 12:00 PM EDT) [employer] Method Time Signature Neutrophils % 79.4 % [facility] Neutr Abs (ANC) 7.49 (H) 1.70 - [facility] 6.10 [facility] x10(3)/[facility] L LABORATORY Lymphocytes % 11.3 % [facility] Lymphocytes Abs 1.1 0.9 - 3.2 [facility] x10(3)/[facility] LABORATORY Monocytes % 7.8 % [facility] Monocyte Abs 0.7 0.3 - 0.9 [facility] x10(3)/[facility] LABORATORY Eosinophils % 0.6 % [facility] Eosinophils Abs 0.1 0.0 - 0.4 [facility] x10(3)/[facility] LABORATORY Basophils % 0.6 % [facility] Basophils Abs 0.1 0.0 - 0.1 [facility] x10(3)/[facility] LABORATORY Immature Gran % 0.30 % [facility] Comment: Immature granulocytes(IG's)percentage an d absolute count will include metamyelocytes, myelocytes, and promyelo cytes. Blood smears from CBCs yielding IG's will be scanned manually for concor dance. If this scan disagrees with the automated IG or if promyelocytes are not ed, a manual differential will be performed. Rain Gran Abs 0.03 0.00 - 0.04 x10(3)/[facility] MAR Y [facility] LABORATORY Specimen Anatomical Collection Method Collection Time Receive d Time (Source) Location / / Volume Laterality Blood 05/15/2022 12:00 05/15/2022 PM EDT 12:19 PM EDT Resulting Agency Comment Spec In Lab Lc TRIPP HEMATOLOGY ORDERABLES Performing Organization Address City/State/[place] [address] (ABNORMAL) Hemogram (05/15/2022 12:00 PM EDT) Analysis Performed At Patho logist Time Signature WBC 9.4 4.0 - 9.5 [facility] x10(3)/[facility] LABORATORY RBC 4.48 (L) 4.58 - [facility] 5.54 [facility] x10(6)/[facility] LABORATORY Hemoglobin 14.5 13.7 - [facility] 16.5 g/dL [facility] Hematocrit 42.4 40.5 - [facility] 48.5 % [facility] MCV 94.6 (H) 82.9 - [facility] 93.1 [facility] LABORATORY MCH 32.4 (H) 27.5 - [facility] 32.1 pg [facility] MCHC 34.2 32.0 - [facility] 35.7 g/dL [facility] Platelets 209 145 - 357 [facility] x10(3)/[facility] LABORATORY RDWSD 45.9 (H) 36.0 - [facility] 45.0 [facility] LABORATORY RDWCV 13.1 11.4 - [facility] 13.8 % [facility] MPV 10.5 7.6 - 12.9 [facility] LABORATORY nRBC % Auto 0.0 % [facility] nRBC Abs Auto 0.000 0.000 - [facility] 0.000 [facility] x10(3)/[facility] LABORATORY Specimen Anatomical Collection Method Collection Time Receive d Time (Source) Location / / Volume Laterality Blood 05/15/2022 12:00 05/15/2022 PM EDT 12:19 PM EDT Resulting Agency Comment Spec In Lab Lc TRIPP HEMATOLOGY ORDERABLES Performing Organization Address City/State/[place] [address] (ABNORMAL) Basic Metabolic Panel (non-fasting) (05/15/2022 12:00 PM EDT) P athologist Signature Glucose Lvl 203 (H) 65 - 199 [facility] mg/dL [facility] Comment: Diabetes: >=200 mg/dL plus symp toms BUN 16 10 - 20 mg/dL [facility] LABORATORY Creatinine 0.84 0.80 - 1.50 mg/dL [facility] Sodium 141 135 - 145 mmol/L [facility] Potassium 4.7 3.5 - 5.0 mmol/L [facility] Comment: Please note: ??Patients with [...] mmol/L [facility] Anion Gap 11 5 - 15 mmol/L [facility] LABORATORY Calcium 8.5 8.5 - 10.5 mg/dL [facility] LAB[facility] Estimated GFR 89 >=60 mL/min/1.73 m?? [facility] LABORATORY [...] Organization Address City/State/[place] [address] documented in this encounter [...] Reason: Transfer to a Procedural area)1955 ([facility] Unhold - Provider: Admin Adt) 0815 (Given - Provider: Etta contreras, RN) 1,000 mcg, Oral, DAILY, First dose on 05/16/22 at 0900, Until Discontinued, Routine metoprolol tartrate (Lopressor) tablet 12.5 mg (CANCEL ED) 0838 (Given - Provider: Caroline Zamora, RN)2008 (Given - Provider: Nuris Lester, DION) 0853 (Given - Provider: Barbie Joyce RN)1750 ([facility] Hold - Provider: Admin Adt - Reason: Transfer to a Procedural area)1955 ([facility] Unhold - Provider: Admin Adt)2004 [...] Zamora RN) 0852 (Given - Provider: Barbie Joyec RN)1750 ([facility] Hold - Provider: Admin Adt - Reason: Transfer to a Procedural area)1955 ([facility] Unhold - Provider: Admin Adt) [...] Reason: Transfer to a Procedural area)1955 ([facility] Unhold - Provider: Admin Adt) 0817 (Given - Provider: Etta contreras RN) 0.4 mg, Oral, DAILY, First dose on Brandi at 0900, Until Discontinued, DO NOT CRUSH OR OPEN, Routine thiamine (Vitamin B1) tablet 100 mg 0838 (Given - Prov ider: Caroline Zamora, DION) 0853 (Given - Provider: Barbie Joyce RN)1750 ([facility] Hold - Provider: Admin Adt - Reason: Transfer to a Procedural area)1955 ([facility] Unhold - Provider: Admin Adt) 0816 (Given - Provider: Etta contreras RN) 100 mg, Oral, DAILY, First dose on Brandi at 0900, Until Discontinued, Routine valsartan (Diovan) tablet 40 mg 0838 (Given - Provider : Caroline Zamora, DION)2008 (Given - Provider: Nuris Lester RN) 0853 (Given - Provider: Barbie Joyce RN)1750 ([facility] Hold - Provider: Admin Adt - Reason: Transfer to a Procedural area)1955 ([facility] Unhold - Provider: Admin Adt)2005 [...] Bag - Provider: Barbie Joyce RN)1750 ([facility] Hold - Provider: Admin Adt - Reason: Transfer to a Procedural area)1955 ([facility] Unhold - Provider: Admin Adt) [...]
Routine documented in this encounter Care Teams Co Chairman Relationship Specialty Start Date End Date Bobby Das MD PCP - General 10/02/[address] [place] [address] [place] [phone] documented as of this encounter
--- OUTSIDE RECORDS SUMMARY | 2022-07-10 09:36 | XMS_ITS | Encounter Summary ---
:1940 [place] [address] Care Team Providers Name Role Phone Bobby Das MD Primary Care Provider Reason for Visit Reason Comments Left Leg Pain Auth/Cert Specialty Diagnoses / Procedures Referred By Contact Refer red To Contact Diagnoses Limb ischemia LLE thrombus Fito Summers MD [facility] D R [place]ASCULAR [place] [address] Referral ID Status Reason Start Date Expiration Date Visits Requ ested Visits Authorized [id number] 1 1 Encounter Details Date Type Department Care Team Description 05/20/2022 Surgery Rabbit Fancier Abundio Mcguire , CARDIAC CATHETERIZATION [facility] [place] [address] CARDIOLOGY [phone] [place], [place] [address] (Wo rk) Social History Tobacco [...] onset Afib who presents in transfer from [facility] with acute limb ischemia of the [...] emergently went to the OR for L PLASTER FOREMAN transverse arteriotomy and primary repair, thromboembolectomy of L SFA/PFA/PLASTER FOREMAN, reperfusion venous drainage for 250 cc, and [...] Discharge Condition: Good Discharge to: Home with [address] [address] Future Appointments and Orders Future Appointments and Orders Future Appointments Provider Department Dept Phone 05/23/2022 10:30 AM Loretta Cohen MD Dermatology at [facility] Arrive at: Deputy Director Of Public Works [address] [place] [address] 06/07/2022 1:30 PM Gail Rae APRN Vascular Surgery at [facility] Arrive at: Deputy Director Of Public Works [address] [phone] 06/13/2022 7:30 AM Edson Lagos [place] Vascular Lab at [facility] Arrive at: Deputy Director Of Public Works Area 06/13/2022 8:00 AM Fito Summers MD Vascular Surgery at [facility] Arrive at: Deputy Director Of Public Works Area 3V [phone] 06/13/2022 10:00 AM Alan Reid MD Cardiology at [facility] Arrive at: Deputy Director Of Public Works Area [phone] Future Orders Complete By Expires Ziopatch 48 Hrs-15 Days [[id number] CPT(R)] 05/21/2022 11/20/2022 Process Instructions: Scheduling Instructions: Comments: Questions: Does the patient have a pacemaker? If yes provide HI/LO settings: Apply for 7 or 14 days?: 7 Where will study be performed?: [facility] Clinics JOSSELYN, legs, multiple levels [VAS8 Custom] 06/21/2022 (Approximate) 12/21/2022 Process Instructions: There is no in-house vascular labourers available on weeknights (5pm-8am), weekends, or holidays. IF THIS IS A REQUEST FOR AN EMERGENT STUDY DURING THOSE HOURS, please have the senior provider responsible for the patient page the Vascular Surgery Fellow/Senior Resident concert singer to discuss options. Scheduling Instructions: Questions: Indication for study/signs & symptoms: ALI s/p L fem cutdown with thromboembolectomy Question to be answered: Perfusion to feet? Please check toe pressure Preferred location?: [facility] Clinics Referral to Cardiology [REF12 Custom] As [...] Koko Zamora for admission to Home Health. [address] [place] [phone] (home) Date of : 1940 Inpatient DOCUMENTATION FOR VNA SERVICES (INCLUDING THOSE PATIENTS WITH MEDICARE COVERAGE REQUIRING HOME VNA SERVICES AND/OR HOSPICE SERVICES) PATIENT'S LOCATION: Koko Zamora [address] [place] [phone] (home) Cell: No relevant phone numbers on file. Automatic Toe Laster's Name: Koko In discussion with the attending physician, it is certified that this patient is under their care and that they, or a Nurse Practitioner,Clinical Nurse specialist or Physician Telecommunications Specialist who is working directly with them, [...] for managing ADL's. HOME HEALTH CARE AGENCY: [facility]. [address] [place] [address] Start of care: Within 24 to 48 [...] from this patient'sPCP: Bobby Das MD [address] [place] [address] [place] [address] All VNA agencies which cover the [...] For any problems or questions please call [phone] For issues on weeknights after 5pm and weekends please call [phone] and ask for the Vascular Fellow concert singer. JOSEE Santiago Vascular Surgery 05/21/2022 documented in [...] For any problems or questions please call [phone] For issues on weeknights after 5pm and weekends please call [phone] and ask for the Vascular Fellow concert singer. documented in this encounter Medications at Time [...] 04/12/20 21 (FLONASE) 50 mcg/actuation Nare route Dows, Suspension daily as needed. fluorouraciL (EFUDEX) 5 [...] onset Afib who presents in transfer from [facility] with acute limb ischemia of the [...] status, full code. JOSEE Santiago 05/21/2022 Pager: [phone] Brannon Isaacs, PT - 05/21/2022 10:35 AM [...] plan as stated. Time IN / OUT: 5563-7709 Total Minutes, Physical Therapy: 25 Billing Code: 2 BOSTON Isaacs DPT Pager: [phone] Physical Therapy Inpatient Rehabilitation Department Wellington Jean MD - 05/21/2022 10:16 AM EDT Images from the original note were not included. Brief Cardiology Consult: Koko Zaomra is a 81 y.o. gentleman with a [...] in Pain and Spine Center at [facility] Weight 79.8 kg (175 lb 14.8 oz) [...] and plan of care per Dr. Mcnamara (net trainer). Please refer to her note above for [...] limb ischemia (thromboembolic) and he is a group home smoker (1/2 ppd, recommend nicotine patch). [...] to Hosp-Admission (Current) from 05/15/[address] [facility] Office Visit from 04/17/2021 in Pain and Spine Center at [facility] Weight 79.8 kg (175 lb 14.8 oz) [...] findings andplan of care per Dr. Mcnamara (net trainer). Please refer to her note above for [...] mitral repair in 2000 (not at [facility]) with no CAD at that time. Currently, [...] and the first documented HR at [facility] was 125 bpm (presented to an an [...] onset Afib who presents in transfer from [facility] with acute limb ischemia of the [...] management following Dottie Hill APRN 05/20/2022 Pager: [phone] Laney Atkins RN - 05/20/2022 1:14 AM EDT Pt Koko transferred to room from [facility]. A&Ox4, oriented to room and call boo. Masimo and telemetry placed. In agreement with assessment as documented this evening by Nuris ASHLEY. No complaints at this time. Pt aware of NPO status and plan for cardiac cath in AM. Urinal provided. Resting comfortably in bed. Nuris Lester RN - 05/20/2022 1:09 AM EDT Pt. Transferred to [facility]. RN accompanied patient to floor and handed off to [facility] RN Dottie Hill APRN - 05/19/2022 10:02 AM EDT Vascular Surgery Progress Note Koko Zamora is a 81 y.o. male with w new onset Afib who presents in transfer from [facility] with acute limb ischemia of the LLE. ?? The patient had sudden pain starting at 630 05/15/22, he presented [facility] where he was placed on heparin. [...] management following Dottie Hill APRN 05/19/2022 Pager: [phone] Emily Sauceda RN - 05/19/2022 6:28 AM EDT OUTCOME EVALUATION NOTE: OUTCOME SUMMARY: Patient AOx4, VSS on RA. Afib on tele. HR controlled w/ PRN metop, given x2. Denies CP, SOB, n/v. See flowsheets for NVC. Dressings to LLE CDI, prevena WV to groin intact. Voiding to urinal. LBM INDEPENDENT LIVING INSTRUCTOR, patient stating he will maybe try the [...] adequately without difficulty to bedside urinal. LBM INDEPENDENT LIVING INSTRUCTOR. Up to chair this AM with nursing staff. Worked with PT, tolerated well. Diet changed to regular at 1800.Plan is for cardiac cath on Friday. PLAN MOVING FORWARD: Bleeding precautions Pain management neurovascular checks PT/OT manufacturing lab technician INDIVIDUALIZED FALL PREVENTION INTERVENTIONS: Patient-specific [...] onset Afib who presents in transfer from [facility] with acute limb ischemia of the [...] mL Intravenous BID ??? PHENobarbitaL 0.12 mg/kg/dose ([place]) Oral BID ??? thiamine 100 mg Oral [...] management following Dottie Hill APRN 05/18/2022 Pager: [phone] Brannon Isaacs, PT - 05/18/2022 10:00 AM [...] MD at [facility] MAIN OR Social History: Pt lives [...] in this evaluation. Time IN / OUT: 4892-8187 Total Minutes, Physical Therapy: 30 Billing Code: Basilio Isaacs, PT Pager: [phone] Physical Therapy Inpatient Rehabilitation Department Emily Sauceda RN - 05/18/2022 4:34 AM EDT OUTCOME EVALUATION NOTE: OUTCOME SUMMARY: Patient AOx4, VSS on 2LNC. Afib on tele. HR above 120, MD aware, PRN IV metop given x1, HR returned to 90's-low 100's. Denies CP, SOB, n/v. See flowsheets for NVC. Dressings to LLE CDI, prevena WV to groin intact. Voiding to urinal. LBM INDEPENDENT LIVING INSTRUCTOR. Heparin gtt therapeutic. Pain controlled. Patient sleeping [...] adequately without difficulty to bedside urinal. LBM INDEPENDENT LIVING INSTRUCTOR. Patient not OOB this shift. Currently NPO awaitingprocedure in brick and blocker aid labor. PLAN MOVING FORWARD: Bleeding precautions Pain management neurovascular checks PT/OT NPO for brick and blocker aid labor INDIVIDUALIZED FALL PREVENTION INTERVENTIONS: Patient-specific fall risk [...] the Emergency Department as a transfer from [facility] with left lower extremity limb ischemia. He went to [facility] and was startedon heparin and transferred to [facility] for evaluation by vascular surgery [...] he will will be going to the brick and blocker aid labor for evaluation. Will defer PT eval at present but will see as ordered post cardiac catheritizaton. Social Hx:Pt lives with his Ursula in [place], [place] in a 2 level home in [...] WBAT LLE LISBET HERMAN PT Pager # [phone] In-Pt Rehab Medicine Dottie Hill APRN - 05/17/2022 7:42 AM EDT Vascular Surgery Progress Note Koko Zamora is a 81 y.o. male with w new onset Afib who presents in transfer from [facility] with acute limb ischemia of the [...] mL Intravenous BID ??? PHENobarbitaL 0.24 mg/kg/dose ([place]) Oral BID Followed by ??? [START ON 05/18/2022] PHENobarbitaL 0.12 mg/kg/dose ([place]) Oral BID ??? thiamine 100 mg Oral [...] management following Dottie Hill APRN 05/17/2022 Pager: [phone] Sary Dos Santos, RN - 05/17/2022 12:16 [...] onset Afib who presents in transfer from [facility] with acute limb ischemia of the [...] mL Intravenous BID ??? PHENobarbitaL 0.48 mg/kg/dose ([place]) Oral BID Followed by ??? [START ON 05/17/2022] PHENobarbitaL 0.24 mg/kg/dose ([place]) Oral BID Followed by ??? [START ON 05/18/2022] PHENobarbitaL 0.12 mg/kg/dose ([place]) Oral BID ??? thiamine 100 mg Oral [...] management following Edward Rodríguez MD 05/16/2022 Pager: [phone] Sary Dos Santos RN - 05/16/2022 12:52 [...] Knowledge Exchangeat Bedside, Bed Alarm Set Barbie Asrhaf MD - 05/15/2022 7:15 PM EDT Surgery [...] met 2129 Hand off to DION Ramirez anaheim documented in this encounter H&P Notes Kerry [...] onset Afib who presents in transfer from [facility] with acute limb ischemia of the [...] Chisholm MD [facility] RAD Social Hx: Social History [...] Refill ??? fluticasone propionate (FLONASE) 50 mcg/actuation Dows, Suspension as needed. ??? fluorouraciL (EFUDEX) 5 [...] and consented. Tim Chicas MD 05/15/2022 Pager: [phone] documented in this encounter ED Notes Lc Harris PA - 05/15/2022 1:20 PM EDT ED Provider Note HPI: Koko Zamora is a 81 y.o. male with history of atrial fibrillation not on anticoagulation, and GI bleeding who presents to the Emergency Department as a transfer from [facility] with left lower extremity limb ischemia. Patient says that the symptoms started roughly 630 this morning when he developed severe pain in his left lower extremity. He went to [facility] and was started on heparin and transferred to [facility] for evaluation by vascular surgery. [...] lower extremity earlier today and went to [facility] where it was determined that he had ischemia of the left lower extremity. Vascular surgery [facility] was contacted and he was transferred here [...] before pt. Arrival. Pt. Arrived at [facility] by EMS at 1150, vascular team at [...] in an outpatient cardiac rehabilitation program at [facility] was discussed. Patient agrees to a referral to this program. Timing will depend on his recovery from Vascular surgery. He is going home w/VNA PT. I gave him the brochure for the program at [facility] for future reference. Care Management Discharge [...] information for follow-up Home Health & Hospice, [place] [address] [place] [address] Transportation: family or friend will provide Functional [...] / Secondary Insurance: [facility] Prescription Coverage: Yes This plan was formulated with input from patient and team. All are in agreement with plan. IP RS has communicated with [place] - for initial IMM. Shawn López RN (Jonas) RN/CM - Cellphone: [phone] Pager: [phone] Covering Service RN/CM Plan of Care - [...] catheterization, transferred in hospital bed accompanied by Rabbit Fancier RN, remains on telemetry monitoring. Heparin gtt [...] / Secondary Insurance: [facility] Last Physical Therapy Recommendation: home with home health, home with supervision with None Last Occupational Therapy Recommendation: with Plan for discharge is: Home w/ Services Outpatient Agency/Support Group Needs: None Home Health Services: Registered Nurse, Physical Therapy, Occupational Therapy Agency Referrals: I have met with the patient to: ?? discuss discharge planning needs. ?? provide the [facility], Office of Care Management letter from the [place] Supervisor pertaining to rehab referrals. ?? provide a letter describing our affiliations within the [facility] and educate about their right to choose where referrals are sent. ?? provide a list of Home Health Agencies / Durable Medical Equipment vendors which serve their preferred geographic area. ?? provided patient with [facility] Star Quality Rating handout. They have requested referrals to: [facility] [employer]. [address] [place] [phone] Note routed to a Game Programer who will communicate referrals to facilities and provide any required information. Transportation: family or friend will provide Barriers to discharge: None Plan going forward: Patient is going for a cardiac cath today and plan will come from there. Patientwas recently seen by PT and they recommend VNA at time of discharge. [facility] was routed and pendedat this time. Care Management will continue to follow and assist with discharge planning and coordination of care as indicated. Anticipated Date of Discharge: 05/21/2022 Nataly RICHMOND RN Phone: [phone] Pager: [phone] Plan of Care - Laney Atkins RN [...] [facility] [place] [address] INPATIENT CARDIOLOGY CONSULT NOTE Date of Consultation: 05/17/2022 Admit Date: 05/15/2022 Hospital Day 2 days Reason for Consult: New afib Active Problems: Active Hospital Problems Diagnosis Limb ischemia Resolved Hospital Problems No resolved problems to display. HPI: Koko Zamora is a 81 y.o. male with a PMHx significant for MVP (s/p MV repair 2000), tobacco use, HLD, who presented to [facility] from OSH on 05/15 with acute limb ischemia of LLE and was found to be in atrial fibrillation. Patient had sudden onset LLE pain on 05/15 and presented to [facility], where he was started on heparin and transferred to [facility]. Upon arrival to [facility], patient was in atrial fib with RVR [...] Marshall MD [facility] INTERVENTIONL RAD IR VERTEBROPLASTY LUMBAR MULTIPLE LEVELS 07/20/2019 IR Vertebroplasty Lumbar Multiple Levels 07/20/2019 Bobby Marshall MD [facility] INTERVENTION[facility] RAD IR VERTEBROPLASTY THORACIC SINGLE LEVEL 10/25/2020 IR Vertebroplasty Thoracic Single Level 10/25/2020 Matt Chisholm MD [facility] INTERVENTIONL RAD PRO EMBLC/THRMBC FEMORAL POPLITEAL AORTO-ILIAC ARTERY Left 05/15/2022 EMBOLECTOMY OR THROMBECTOMY, FEMOROPOPLITEAL, AORTOILIAC ARTERY BY LEG INCISION (WRVU 19.48) performed by Fito Summers MD at [facility] MAIN OR Allergies Allergen Reactions Aspirin Other (See Comments) GI bleed Out-Patient Medications: Medications Prior to Admission Medication Sig Dispense Refill Last Dose fluorouraciL (EFUDEX) 5 % Cream daily. CRESTOR 40 mg Tablet Take 40 mg by mouth daily. fluticasone propionate (FLONASE) 50 mcg/actuation Dows, Suspension as needed. ascorbic acid, vitamin C, [...] 5 mL Intravenous BID PHENobarbitaL 0.24 mg/kg/dose ([place]) Oral BID Followed by [START ON 05/18/2022] PHENobarbitaL 0.12 mg/kg/dose ([place]) Oral BID thiamine 100 mg Oral Daily folic acid 1,000 mcg Oral Daily multivitamin with minerals 1 tablet Oral Daily heparin (porcine) infusion 1,200 Units/hr (05/17/22 9267) Family History: No family history on file. [...] ED to Hosp-Admission (Current) from 05/15/[address] [place] [address] Office Visit from 04/17/2021 in Pain and Spine Center at [facility] Weight 79.8 kg (175 lb 14.8 oz) [...] continue to follow Anne-Marie Larson MD Pager [phone] Clinic: [phone] 05/17/22 6:22 PM Initial Assessments - Ifrah [...] spouse would be surrogate decision maker per [place] surrogate decision making law. (Only good for 180 days) Any patient receiving care at [facility] must abide by [place] law. The hierarchy for surrogate decision making [...] raised toilet seat Home Address confirmed as: [address] [place] [phone] Social & Family Supports: All names listed below confirmed with patient as Incorrect. Will notify toni to correct. Wifes address is same as and phone is [phone]. Extended Emergency Contact Information Primary Emergency Contact: Ursula Zamora Address: [address] [place] [address] [address] [place] [address] [facility] Relation: Spouse Current Care Provided by: [...] / Secondary Insurance: [facility] Prescription Coverage: Yes Preferred Pharmacy: [id number] - [place], [place] - [address] [facility] [address] [facility] [place] [address] [id number] - [place], [place] - [address] [facility] [address] [facility] [address] [place] Status: Patient is a : unable to assess Primary Care Provider: Bobby Das MD [phone] Patient/Caregiver Goals of Treatment: to walk again Potential Needs for Transition of Care: none noted per 05/16 IDR Transportation: family will provide Transportation Anticipated: family or friend will provide Concerns to be Addressed: no discharge needs identified Assessment: Patient is admitted to vascular surg service for left lower extremity limb ischemia Plan: Per PT OT recommendations . Has used [facility] in the past. A member of the Care Management team will continue to monitor progress, follow for continuity of care and assist with transition of care planning. Ifrah Bell RN BSN [facility] Administrator of Care Management Pager [phone] Brief Op Note - Erin Garza MD - 05/15/2022 5:04 PM EDT Brief Operative Note Patient Name: Koko Zamora : [id number] MR#: [id number] Case Date: 05/15/2022 Surgeon: Surgeon(s) and Role: [...] MD - 05/15/2022 2:08 PM EDT [facility] Operative Note Patient Name: Koko Zamora : [id number] MR#: [id number] Case Date: 05/15/2022 Surgeon: Surgeon(s) and Role: [...] [facility] GASTROENTEROLOGY DEPT [place], [place] [address] (Wo rk) 09/05/2022 Appointment Cardiology Trinity Reid MD [facility] CARDIOLOGY [place], [place] [address] (Wo rk) 09/05/2022 Office Visit Cardiology Trinity Reid MD [facility] CARDIOLOGY [place], [place] [address] (Wo rk) Scheduled Referrals Name [...] Component Value Ref Test Analysis Performed At [facility] Range Method Time Signature VB Text Department: Vascular Surgery Lab VASCUBASE Report Patient: [id number] (KOKO ZAMORA) CPT: 13754 Referring Physician: FITO SUMMERS ?? Phone: Indications: s/p L PLASTER FOREMAN endart. Diabetes mellitus: no Findings: Right ?Pressure [...] P athologist Signature Heparin UFH 0.42 IU/mL [facility] LABORATORY Comment: [...] City/State/ZIP Code Phon e Number [place] [phone] Differential, Automated (05/21/2022 6:15 AM EDT) P athologist Signature Neutrophils % 58.8 % [facility] LABORATORY Neutr Abs (ANC) 3.97 1.70 - [facility] 6.10 [facility] x10(3)/[facility] LABORATORY Lymphocytes % 25.2 % [facility] LABORATORY Lymphocytes Abs 1.7 0.9 - 3.2 [facility] x10(3)/[facility] LABORATORY Monocytes % 12.9 % [facility] LABORATORY Monocyte Abs 0.9 0.3 - 0.9 [facility] x10(3)/[facility] LABORATORY Eosinophils % 2.1 % [facility] LABORATORY Eosinophils Abs 0.1 0.0 - 0.4 [facility] x10(3)/[facility] LABORATORY Basophils % 0.4 % [facility] LABORATORY Basophils Abs 0.0 0.0 - 0.1 [facility] x10(3)/[facility] LABORATORY Immature Gran % 0.60 % [facility] [...] Rain Gran Abs 0.04 0.00 - 0.04 x10(3)/[facility] LABORATORY Specimen Anatomical Collection Method Collection Time Receive d Time (Source) Location / / Volume Laterality Blood 05/21/2022 6:15 AM 2 6:38 EDT AM EDT Resulting Agency Comment Spec In Lab Edward Rodríguez MD HEMATOLOGY ORDERABLES Performing Organization Address City/State/[place] [address] (ABNORMAL) Hemogram (05/21/2022 6:15 AM EDT) [facility] gist Method Time Signature WBC 6.8 4.0 - 9.5 [facility] x10(3)/[facility] LABORATORY RBC 3.59 (L) 4.58 - [facility] 5[facility]54 [facility] x10(6)/[facility] LABORATORY Hemoglobin 11.8 (L) 13.7 - [facility] 16.5 g/dL [facility] LABORATORY Hematocrit 34.5 (L) 40.5 - [facility] 48.5 % [facility] LABORATORY MCV 96.1 (H) 82.9 - [facility] LAB[facility] MCH 32.9 (H) 27.5 - [facility] 32.1 pg [facility] LABORATORY MCHC 34.2 32.0 - [facility] 35.7 g/dL [facility] LABORATORY Platelets 198 145 - 357 [facility] x10(3)/[facility] LABORATORY RDWSD 44.9 36.0 - [facility] LAB[facility] RDWCV 12.6 11.4 - [facility] 13.8 % [facility] LABORATORY MPV 10.0 7.6 - 12.9 [facility] LABORATORY nRBC % Auto 0.3 % [facility] LABORATORY nRBC Abs Auto 0.020 (H) 0.000 - [facility] 0.000 [facility] x10(3)/[facility] LABORATORY Specimen Anatomical Collection Method Collection Time Receive d Time (Source) Location / / Volume Laterality Blood 05/21/2022 6:15 AM 2 6:38 EDT AM EDT Resulting Agency Comment Spec In Lab Edward Rodríguez MD HEMATOLOGY ORDERABLES Performing Organization Address City/State/[place] [address] EKG 12 Lead (05/20/2022 7:04 PM EDT) Component Value Ref Range Test Analysis Performed Pathologis t Method Time At Signature Ventricular rate 101 BPM MUSE SYSTEM QRS Duration 116 ms MUSE SYSTEM Q-T Interval 378 ms MUSE SYSTEM QTC Calculated 490 ms MUSE SYSTEM (Bezet) Calculated R [place] -53 degrees MUSE SYSTEM Calculated T [place] 101 degrees MUSE SYSTEM INTERPRETATION Atrial fibrillation [...] SYSTEM - 05/20/2022 7:09 PM ED T ?[facility] ? Cardiac Cathete rization/Intervention Report ? Patient Name: Sera Koko Sullivan. ? Procedure Date: 05/20/2022 ? A #: [id number] ? Primary Physician: Abundio Servin ? Case #: [id number] ? File Name: [id number] ? Catheterization Order Number: [id number] ? [facility] ? Final Report [place], [place] ? Patient Name: ? Koko J. Klarissa uson ? ID#: ?[id number] ? : ?1940 ? Procedure Date: ? [...] procedure was Urgent. The indication for ?the brick and blocker aid labor visit is cardiomyo nita. Chest pain symptom [...] ?3.5 guiding catheter and a 3.5 Fr [facility] [address] [place] [address] ??20 Mhz. ??Imaging ?was successful. ??Image [...] premounted 2. 75 x 30 mm [place]y [place] (AMPARO) was deployed ? with a maximum [...] ?modification of this regimen. C onsult [facility] Interventional Cardiology for ?questions. ?The 1 year [...] 123 65 - 199 [facility] XIAO mg/dL [facility] LABORATORY Comment: Supplemental ranges: <140 mg/dL before meals <180 mg/dL all other times of the day Specimen Anatomical Collection Method Collection Time Receive d Time (Source) Location / / Volume Laterality Blood 05/20/2022 5:42 PM 5:42 EDT PM EDT Fito Summers MD POINT OF CARE TEST ORDERABLE S Performing Organization Address City/[facility]/[place]IP [place] [address] (ABNORMAL) BMP w/fasting Glucose (05/20/2022 10:50 AM EDT) P athologist Signature Glucose 152 (H) 65 - 99 [place] Fasting mg/dL [facility] LABORATORY Comment: ?Fasting* Glucose Interpretive C riteria [...] of Diabetes Mellitus, Position Statement from the [employer]. ??Diabete s Care, Volume 33, Supplement 1, Nov 2009 BUN 11 10 - 20 mg/dL [facility] LABORATORY Creatinine 0.63 (L) 0.80 - 1.50 mg/dL [facility] LABORATORY Sodium 137 135 [...] mmol/L [facility] LABORATORY Calcium 8.7 8.5 - [...] Organization Address City/State/[place] [address] Heparin (unfractionated) Level (05/20/2022 5:02 AM EDT) P athologist Signature Heparin UFH 0.57 IU/mL [facility] LABORATORY Comment: [...] Organization Address City/State/[place] [address] (ABNORMAL) Differential, Automated (05/20/2022 5:02 AM EDT) [facility] gist Method Time Signature Neutrophils % 58.1 % [facility] LABORATORY Neutr Abs (ANC) 4.52 1.70 - [facility] 6.10 [facility] x10(3)/[facility] LABORATORY Lymphocytes % 24.1 % [facility] LABORATORY Lymphocytes Abs 1.9 0.9 - 3.2 [facility] x10(3)/[facility] LABORATORY Monocytes % 13.8 % [facility] LABORATORY Monocyte Abs 1.1 (H) 0.3 - 0.9 [facility] x10(3)/[facility] [place] LABORATORY Eosinophils % 2.6 % [facility] LABORATORY Eosinophils Abs 0.2 0.0 - 0.4 [facility] x10(3)/[facility] [place] LABORATORY Basophils % 0.8 % [facility] LABORATORY Basophils Abs 0.1 0.0 - 0.1 [facility] x10(3)/[facility] [place] LABORATORY Immature Gran % 0.60 % [facility] [...] City/State/ZIP Code Phon e Number [place] [phone] (ABNORMAL) Hemogram (05/20/2022 5:02 AM EDT) Analysis Performed At Patho logist Time Signature WBC 7.8 4.0 - 9.5 [facility] [place] LABORATORY RBC 3.53 (L) 4.58 - [facility] XIAO 5.54 [facility] x10(6)/[facility] LABORATORY Hemoglobin 11.4 (L) 13.7 - [facility] 16.5 g/dL [facility] LABORATORY Hematocrit 34.3 (L) 40.5 - [facility] XIAO 48.5 % [facility] LABORATORY MCV 97.2 (H) 82.9 - [facility] 93.1 [facility] MCH 32.3 (H) 27.5 - [facility] 32.1 pg [facility] LABORATORY MCHC 33.2 32.0 - [facility] 35.7 g/dL [facility] LABORATORY Platelets 181 145 - 357 [facility] [place] LABORATORY RDWSD 46.4 (H) 36.0 - [facility] 45.0 [facility] RDWCV 13.0 11.4 - [facility] 13.8 % [facility] LABORATORY MPV 10.4 7.6 - 12.9 [facility] nRBC % Auto 0.0 % [facility] LABORATORY nRBC Abs Auto 0.000 0.000 - [facility] 0.000 [facility] x10(3)/[facility] LABORATORY Specimen Anatomical Collection Method Collection Time Receive d Time (Source) Location / / Volume Laterality Blood 05/20/2022 5:02 AM 2 5:19 EDT AM EDT Resulting Agency Comment Spec In Lab Edward Rodríguez MD HEMATOLOGY ORDERABLES Performing Organization Address City/[facility]/ZIP Code Phon e Number [address] Heparin (unfractionated) Level (05/19/2022 3:26 AM EDT) P athologist Signature Heparin UFH 0.59 IU/mL [facility] LABORATORY Comment: [...] Organization Address City/State/ZIP Code Phon e Number [address] (ABNORMAL) Differential, Automated (05/19/2022 3:26 AM EDT) Patholo gist Method Time Signature Neutrophils % 62.1 % [facility] LABORATORY Neutr Abs (ANC) 4.59 1.70 - [facility] 6.10 [facility] x10(3)/[facility] LABORATORY Lymphocytes % 22.1 % [facility] LABORATORY Lymphocytes Abs 1.6 0.9 - 3.2 [facility] x10(3)/[facility] [place] LABORATORY Monocytes % 13.5 % [facility] LABORATORY Monocyte Abs 1.0 (H) 0.3 - 0.9 [facility] x10(3)/[facility] [place] LABORATORY Eosinophils % 1.3 % [facility] LABORATORY Eosinophils Abs 0.1 0.0 - 0.4 [facility] x10(3)/[facility] [place] LABORATORY Basophils % 0.5 % [facility] LABORATORY Basophils Abs 0.0 0.0 - 0.1 [facility] x10(3)/[facility] [place] LABORATORY Immature Gran % 0.50 % [facility] [...] Rain Gran Abs 0.04 0.00 - 0.04 x10(3)/[facility] LABORATORY Specimen Anatomical Collection Method Collection Time Receive d Time (Source) Location / / Volume Laterality Blood 05/19/2022 3:26 AM 2 3:59 EDT AM EDT Resulting Agency Comment Spec In Lab Edward Rodríguez MD HEMATOLOGY ORDERABLES Performing Organization Address City/State/[place] [address] (ABNORMAL) Hemogram (05/19/2022 3:26 AM EDT) Analysis Performed At Patho logist Time Signature WBC 7.4 4.0 - 9.5 [facility] x10(3)/[facility] [place] LABORATORY RBC 3.74 (L) 4.58 - [facility] 5.54 [facility] x10(6)/[facility] LABORATORY Hemoglobin 12.1 (L) 13.7 - [facility] 16.5 g/dL [facility] LABORATORY Hematocrit 36.4 (L) 40.5 - [facility] 48.5 % [facility] LABORATORY MCV 97.3 (H) 82.9 - [facility] [place] 93.1 [facility] LAB[facility] MCH 32.4 (H) 27.5 - [facility] [place] 32.1 pg [facility] LABORATORY MCHC 33.2 32.0 - [facility] [place] 35.7 g/dL [facility] LABORATORY Platelets 168 145 - 357 [facility] x10(3)/[facility] [place] LABORATORY RDWSD 46.9 (H) 36.0 - [facility] 45.0 [facility] RDWCV 13.0 11.4 - [facility] 13.8 % [facility] LABORATORY MPV 10.5 7.6 - 12.9 [facility] LAB[facility]ATORY nRBC % Auto 0.0 % [facility] LABORATORY nRBC Abs Auto 0.000 0.000 - [facility] [place] 0.000 [facility] x10(3)/[facility] LABORATORY Specimen Anatomical Collection Method Collection Time Receive d Time (Source) Location / / Volume Laterality Blood 05/19/2022 3:26 AM 2 3:59 EDT AM EDT Resulting Agency Comment Spec In Lab Edward Rodríguez MD HEMATOLOGY ORDERABLES Performing Organization Address City/[facility]/[place] [address] TSH (05/18/2022 8:00 PM EDT) P athologist Signature TSH 2.27 0.27 - 4.20 [facility] HAG[facility] mcIU/mL [facility] LABORATORY Comment: Reference Interval (mcIU/mL): Females: ??First Trimester: 0.23-3.88 ??Second Trimester: 0.22-3.90 ??Third Trimester: 0.44-4.66 Specimen Anatomical Collection Method Collection Time Receive d Time (Source) Location / / Volume Laterality Blood 05/18/2022 8:00 PM 2 8:06 EDT PM EDT Resulting Agency Comment Spec In Lab Fito Summers MD CHEMISTRY ORDERABLES Performing Organization Address City/State/Z[place] [address] (ABNORMAL) Differential, Automated (05/18/2022 3:34 AM EDT) [facility] gist Method Time Signature Neutrophils % 67.2 % [facility] LABORATORY Neutr Abs (ANC) 5.89 1.70 - [facility] 6.10 [facility] x10(3)/[facility] LABORATORY Lymphocytes % 17.1 % [facility] LABORATORY Lymphocytes Abs 1.5 0.9 - 3.2 [facility] x10(3)/[facility] LABORATORY Monocytes % 13.6 % [facility] LABORATORY Monocyte Abs 1.2 (H) 0.3 - 0.9 [facility] x10(3)/[facility] LABORATORY Eosinophils % 1.0 % [facility] LABORATORY Eosinophils Abs 0.1 0.0 - 0.4 [facility] x10(3)/[facility] LABORATORY Basophils % 0.6 % [facility] LABORATORY Basophils Abs 0.0 0.0 - 0.1 [facility] x10(3)/[facility] LABORATORY Immature Gran % 0.50 % [facility] [...] Rain Gran Abs 0.04 0.00 - 0.04 x10(3)/[facility] LABORATORY Specimen Anatomical Collection Method Collection Time Receive d Time (Source) Location / / Volume Laterality Blood 05/18/2022 3:34 AM 3:48 EDT AM EDT Resulting Agency Comment Spec In Lab Edward Rodríguez MD HEMATOLOGY ORDERABLES Performing Organization Address City/State/ZIP Code Phon e Number [place] [phone] Drive (ABNORMAL) Hemogram (05/18/2022 3:34 AM EDT) Analysis Performed At Patho logist Time Signature WBC 8.8 4.0 - 9.5 [facility] x10(3)/[facility] [place] LABORATORY RBC 3.45 (L) 4.58 - [facility] 5.54 [facility] x10(6)/[facility] LABORATORY Hemoglobin 11.2 (L) 13.7 - [facility] 16.5 g/dL [facility] LABORATORY Hematocrit 33.0 (L) 40.5 - [facility] 48.5 % [facility] LABORATORY MCV 95.7 (H) 82.9 - [facility] 93[facility]1 [facility] MCH 32.5 (H) 27.5 - [facility] 32.1 pg [facility] LABORATORY MCHC 33.9 32.0 - [facility] 35.7 g/dL [facility] LABORATORY Platelets 130 (L) 145 - 357 [facility] x10(3)/[facility] LABORATORY RDWSD 46.2 (H) 36.0 - [facility] 45.0 [facility] RDWCV 13.2 11.4 - [facility] 13.8 % [facility] LABORATORY MPV 10.8 7.6 - 12.9 [facility] LABORATORY nRBC % Auto 0.0 % [facility] LABORATORY nRBC Abs Auto 0.000 0.000 - [facility] 0.000 [facility] x10(3)/[facility] LABORATORY Specimen Anatomical Collection Method Collection Time Receive d Time (Source) Location / / Volume Laterality Blood 05/18/2022 3:34 AM 3:48 EDT AM EDT Resulting Agency Comment Spec In Lab Edward Rodríguez MD HEMATOLOGY ORDERABLES Performing Organization Address City/State/[place] [address] Heparin (unfractionated) Level (05/18/2022 3:34 AM EDT) P athologist Signature Heparin UFH 0.59 IU/mL [facility] LABORATORY Comment: [...] Summers MD HEMATOLOGY ORDERABLES Performing Organization Address City/[facility]/ZIP Code Phon e Number [address] Magnesium (05/17/2022 3:33 AM EDT) athologist Signature Magnesium 0.76 0.69 - 1.07 [facility] mmol/L [facility] LABORATORY Specimen Anatomical Collection Method Collection Time Receive d Time (Source) Location / / Volume Laterality Blood Venous Draw / 05/17/2022 3:33 AM 05/17/20 22 4:05 Unknown EDT AM EDT Resulting Agency Comment Spec In Lab Dottie Hill APRN CHEMISTRY ORDERABLES Performing Organization Address City/[facility]/[place] [address] (ABNORMAL) Basic Metabolic Panel (non-fasting) (05/17/2022 3:33 AM EDT) athologist Signature Glucose Lvl 158 65 - 199 [facility] mg/dL [facility] LABORATORY Comment: Diabetes: >=200 mg/dL plus symp toms BUN 12 10 - 20 mg/dL [facility] LABORATORY Creatinine 0.74 (L) 0.80 - 1.50 mg/dL [facility] LABORATORY Sodium 137 135 - 145 mmol/L [facility] LABORATORY Potassium 3.5 3.5 - 5.0 mmol/L [facility] [...] mmol/L [facility] LABORATORY Calcium 8.4 (L) 8.5 - 10.5 mg/dL [facility] LABORATORY Estimated GFR 92 >=60 [...] Organization Address City/State/[place] [address] (ABNORMAL) Differential, Automated (05/17/2022 3:33 AM EDT) [facility] Method Time Signature Neutrophils % 65.5 % [facility] LABORATORY Neutr Abs (ANC) 6.84 (H) 1.70 - [facility] 6.10 [facility] x10(3)/[facility] L LABORATORY Lymphocytes % 19.7 % [facility] LABORATORY Lymphocytes Abs 2.1 0.9 - 3.2 [facility] x10(3)/[facility] LABORATORY Monocytes % 13.1 % [facility] LABORATORY Monocyte Abs 1.4 (H) 0.3 - 0.9 [facility] x10(3)/[facility] LABORATORY Eosinophils % 0.6 % [facility] LABORATORY Eosinophils Abs 0.1 0.0 - 0.4 [facility] x10(3)/[facility] LABORATORY Basophils % 0.6 % [facility] LABORATORY Basophils Abs 0.1 0.0 - 0.1 [facility] x10(3)/[facility] LABORATORY Immature Gran % 0.50 [...] Organization Address City/State/[place] [address] (ABNORMAL) Hemogram (05/17/2022 3:33 AM EDT) Analysis Performed At Patho logist Time Signature WBC 10.4 (H) 4.0 - 9.5 [facility] x10(3)/[facility] LABORATORY RBC 3.72 (L) 4.58 - [facility] 5.54 [facility] x10(6)/[facility] LABORATORY Hemoglobin 12.0 (L) 13.7 - [facility] 16.5 g/dL [facility] LABORATORY Hematocrit 36.4 (L) 40.5 - [facility] 48.5 % [facility] LABORATORY MCV 97.8 (H) 82.9 - [facility] 93.1 [facility] LAB[facility]ORY MCH 32.3 (H) 27.5 - [facility] 32.1 pg [facility] LABORATORY MCHC 33.0 32.0 - [facility] [place] 35.7 g/dL [facility] LABORATORY Platelets 149 145 - 357 [facility] x10(3)/[facility] LABORATORY RDWSD 48.7 (H) 36.0 - [facility] 45.0 [facility] RDWCV 13.5 11.4 - [facility] 13.8 % [facility] LABORATORY MPV 10.6 7.6 - 12.9 [facility] LABORATORY nRBC % Auto 0.0 % [facility] LABORATORY nRBC Abs Auto 0.000 0.000 - [facility] 0.000 [facility] x10(3)/[facility] LABORATORY Specimen Anatomical Collection Method Collection Time Receive d Time (Source) Location / / Volume Laterality Blood 05/17/2022 3:33 AM 3:53 EDT AM EDT Resulting Agency Comment Spec In Lab Edward Rodríguez MD HEMATOLOGY ORDERABLES Performing Organization Address City/State/[place] [address] (ABNORMAL) Urinalysis Microscopic Exam [...] Organization Address City/State/[place] [address] (ABNORMAL) Urinalysis with reflex Culture (05/16/2022 11:15 PM EDT) Patholo gist Method Time Signature Glucose UA Negative Negative [facility]/dL [facility] LAB[facility]ATORY Protein UA Negative Negative [facility] mg/dL [facility] LABORATORY Bilirubin UA Negative Negative [facility] mg/dL [facility] LABORATORY Comment: Clinical correlation required for positi ve Urine Bilirubin results as false positive may occur with some drugs and d rug related products. If a false positive is suspected a serum total bili quarles should be considered if clinically indicated. Urobilinogen UA Normal Normal mg/dL [facility] LABORATORY pH UA 6.0 5.0 - 8.[address] [facility] LABORATORY Blood UA Small (A) Negative mg/dL [facility] LABORATORY Ketones UA Trace (A) Negative mg/dL [facility] LABORATORY Nitrite UA Negative Negative [facility] LABORATORY Leukocytes UA Negative Negative [facility] LABORATORY Appearance UA Clear Clear [facility] LABORATORY Spec [place] UA 1.021 1.005 - 1.030 [facility] LABORATORY Color UA Yellow Yellow [facility] LABORATORY Culture Reflexed No [facility] LABORATORY Specimen Anatomical Collection Method Collection Time Receive d Time (Source) Location / / Volume Laterality Clean Catch 05/16/2022 11:15 05/16/2022 Urine PM EDT 11:30 PM EDT Resulting Agency Comment Spec In Lab Fito Summers MD URINE ORDERABLES Performing Organization Address City/State/[place] [address] Heparin (unfractionated) Level (05/16/2022 10:59 PM EDT) P athologist Signature Heparin UFH 0.65 IU/mL [facility] LABORATORY Comment: Specimen drawn more [...] City/State/ZIP Code Phon e Number [place] [phone] HOSPITAL LAB[address]ORY Drive XR Chest One View [...] who have questions please contact the health rn progressive care unit that requested your imaging first. ? Narrative [...] ho have questions please contact the health rn progressive care unit that requested your imaging first. Fito Summers MD IMG DX ORDERABLES EKG 12 Lead (05/16/2022 8:57 PM EDT) Component Value Ref Range Test Analysis Performed Pathologis t Method Time At Signature Ventricular rate 117 BPM MUSE SYSTEM QRS Duration 112 ms MUSE SYSTEM Q-T Interval 346 ms MUSE SYSTEM QTC Calculated 482 ms MUSE SYSTEM (Bezet) Calculated R [place] -48 degrees MUSE SYSTEM Calculated T [place] 111 degrees MUSE SYSTEM INTERPRETATION Atrial fibrillation [...] Summers MD ECG ORDERABLES Performing Organization Address City/[facility]/ZIP Code Phon e Number MUSE SYSTEM Heparin (unfractionated) Level (05/16/2022 4:34 PM EDT) P athologist Signature Heparin UFH 0.53 IU/mL [facility] LABORATORY Comment: [...] Summers MD HEMATOLOGY ORDERABLES Performing Organization Address City/[facility]/[place] [address] ECHOCARDIOGRAM COMPLETE W CONTRAST (05/16/2022 12:49 PM EDT) athologist Signature EF 28 [facility] Specimen (Source) Anatomical Collection Method Collection Time Re ceived Time Location / / Volume Laterality 05/16/2022 11:22 AM EDT Narrative [facility] - 05/16/2022 1:54 PM EDT ?[facility] ? [facility] Center ?[address] ? [place] [address] ?Voice: ?Fax: ? Echocardiogram Report Name: KOKO ZAMORA ?Study Date: 05/16/2022 11:22 AM ? Patient Location: 3WST 0303 B : 1940 ? Height: 67.5 in ? Account: [id number] Age: 81 yrs ? Weight: 176 lb Gender: Male ?BSA: 1.9 m2 Ordering Physician: FITO SUMMERS Referring Physician: MALI FLORIAN Performed By: Jolene Bernard [facility] Exam Location: [facility]. Interpretation Summary Left ventricle is mildly [...] and LV systolic dysfunction are new. Procedure Complete-[id number]. Image enhancement Optiso n was used for [...] note might be different from the original. [facility] [address] [place] [address] Voice: Fax: Echocardiogram Report Name: KOKO ZAMORA Study Date: 05/2022 11:22 AM Patient Location: [address] [place] [address] : 1940 Height: 67.5 in Account: [id number] Age: 81 yrs Weight: 176 lb Gender: Male BSA: 1.9 m2 Ordering Physician: FITO SUMMERS Referring Physician: MALI FLORIAN Performed By: Jolene Bernard RDCS Exam Location: [facility]. Interpretation Summary Left ventricle is mildly [...] and LV systolic dysfunction are new. Procedure Complete-[id number]. Image enhancement Optiso n was used for [...] (ABNORMAL) Differential, Automated (05/16/2022 3:01 AM EDT) [facility] gist Method Time Signature Neutrophils % 78.8 % [facility] LABORATORY Neutr Abs (ANC) 9.11 (H) 1.70 - [facility] 6.10 [facility] x10(3)/[facility] L LABORATORY Lymphocytes % 9.4 % [facility] LABORATORY Lymphocytes Abs 1.1 0.9 - 3.2 [facility] x10(3)/[facility] LABORATORY Monocytes % 10.9 % [facility] LABORATORY Monocyte Abs 1.3 (H) 0.3 - 0.9 [facility] x10(3)/[facility] LABORATORY Eosinophils % 0.0 % [facility] LABORATORY Eosinophils Abs 0.0 0.0 - 0.4 [facility] x10(3)/[facility] LABORATORY Basophils % 0.3 % [facility] LABORATORY Basophils Abs 0.0 0.0 - 0.1 [facility] x10(3)/[facility] LABORATORY Immature Gran % 0.60 [...] Organization Address City/State/[place] [address] (ABNORMAL) Hemogram (05/16/2022 3:01 AM EDT) Analysis Performed At Patho logist Time Signature WBC 11.6 (H) 4.0 - 9.5 [facility] x10(3)/[facility] [place] LABORATORY RBC 3.62 (L) 4.58 - [facility] 5.54 [facility] x10(6)/[facility] LABORATORY Hemoglobin 12.0 (L) 13.7 - [facility] 16.5 g/dL [facility] LABORATORY Hematocrit 35.3 (L) 40.5 - [facility] LAB[facility] MCV 97.5 (H) 82.9 - [facility] MCH 33.1 (H) 27.5 - [facility] 32.1 pg [facility] LABORATORY MCHC 34.0 32.0 - [facility] 35.7 g/dL [facility] LABORATORY Platelets 151 145 - 357 [facility] x10(3)/[facility] [place] LABORATORY RDWSD 47.6 (H) 36.0 - [facility] 45[facility]0 [facility] RDWCV 13.3 11.4 - [facility] 13.8 % [facility] LABORATORY MPV 10.5 7.6 - 12.9 [facility] LABORATORY nRBC % Auto 0.0 % [facility] nRBC Abs Auto 0.000 0.000 - [facility] 0.000 [facility] x10(3)/[facility] LABORATORY Specimen Anatomical Collection Method Collection Time Receive d Time (Source) Location / / Volume Laterality Blood 05/16/2022 3:01 AM 2 3:36 EDT AM EDT Resulting Agency Comment Spec In Lab Erin Garza MD HEMATOLOGY ORDERABLES Performing Organization Address City/[facility]/ZIP Code Phon e Number [address] Phosphorus (05/16/2022 3:01 AM EDT) athologist Signature Phosphorus 3.7 2.5 - 4.5 [facility] LABORATORY Specimen Anatomical Collection Method Collection Time Receive d Time (Source) Location / / Volume Laterality Blood 05/16/2022 3:01 AM 2 3:36 EDT AM EDT Resulting Agency Comment Spec In Lab Fito Summers MD CHEMISTRY ORDERABLES Performing Organization Address City/[facility]/ZIP Code Phon e Number [address] Magnesium (05/16/2022 3:01 AM EDT) athologist Signature Magnesium 0.77 0.69 - 1.07 [facility] mmol/L [facility] LABORATORY Specimen Anatomical Collection Method Collection Time Receive d Time (Source) Location / / Volume Laterality Blood 05/16/2022 3:01 AM 2 3:36 EDT AM EDT Resulting Agency Comment Spec In Lab Fito Summers MD CHEMISTRY ORDERABLES Performing Organization Address City/[facility]/ZIP Code Phon e Number [address] (ABNORMAL) Basic Metabolic Panel (non-fasting) (05/16/2022 3:01 AM EDT) athologist Signature Glucose Lvl 222 (H) 65 - 199 [facility] mg/dL [facility] LABORATORY Comment: Diabetes: >=200 mg/dL plus symp toms BUN 12 10 - 20 mg/dL [facility] LABORATORY Creatinine 0.66 (L) 0.80 - 1.50 mg/dL [facility] LABORATORY Sodium 138 135 - 145 mmol/L [facility] LABORATORY Potassium 4.5 3.5 - 5.0 mmol/L [facility] [...] Anion Gap 8 5 - 15 mmol/L [facility] LABORATORY Calcium 8.2 (L) 8.5 - 10.5 mg/dL [facility] LABORATORY Estimated GFR 95 >=60 [...] Organization Address City/State/[place] [address] (ABNORMAL) BLOOD GAS 2 ARTERIAL (05/15/2022 3:33 PM EDT) Analysis Performed At Patho logist Time Signature pH Art 7.33 (L) 7.35 - [facility] 7.45 [facility] LABORATORY pCO2 Art 41 35 - 45 General acute hospital LABORATORY pO2 Art 131 (H) 85 - 104 General acute hospital LABORATORY HCO3 Art 21.1 20.0 - [facility] 26.0 [facility] mmol/L [facility] LABORATORY BE Art -4.8 (L) -3.0 - 3.0 [facility] mmol/L [facility] LABORATORY Hgb Blood Gas 13.4 (L) 13.7 - [facility] 16.5 g/dL [facility] O2HB Art 96.9 94.0 - [facility] 97.0 % [facility] LABORATORY COHB Art 1.4 % [facility] Comment: Nonsmokers: 0.5-1.5% COHB Smokers: Variable, but usually less than 10% Toxic: 20-30% COHB Lethal: Greater than 60% COHB METHB Art 0.3 <=1.5 % [facility] LABORATORY Na Whole Blood 139 135 [...] Blood 113 (H) 98 - 107 mmol/L [facility] LABORATORY Gluc Whole Bld 136 65 - 199 mg/dL [facility] LABORATORY Comment: Diabetes: >=200 mg/dL plus symp toms. Lactate WB 2.0 0.5 - 2.2 mmol/L [facility] LABORATORY Specimen Anatomical Collection Method Collection Time Receive d Time (Source) Location / / Volume Laterality Blood 05/15/2022 3:33 PM 3:[address] Jamel Torre MD CHEMISTRY ORDERABLES Performing Organization Address City/State/[place] [address] (ABNORMAL) BLOOD GAS 2 ARTERIAL (05/15/2022 2:06 PM EDT) Analysis Performed At Patho logist Time Signature pH Art 7.39 7.35 - [facility] 7.45 [facility] LABORATORY pCO2 Art 35 35 - 45 [facility] mmHg [facility] LABORATORY pO2 Art 135 (H) 85 - 104 General acute hospital LABORATORY HCO3 Art 20.8 20.0 - [facility] 26.0 [facility] mmol/L [facility] LABORATORY BE Art -4.2 (L) -3.0 - 3.0 [facility] mmol/L [facility] LABORATORY Hgb Blood Gas 14.5 13.7 - [facility] 16.5 g/dL [facility] LABORATORY O2HB Art 97.2 (H) 94.0 - [facility] 97.0 % [facility] LABORATORY COHB Art 1.2 % [facility] Comment: Nonsmokers: 0.5-1.5% COHB Smokers: Variable, but usually less than 10% Toxic: 20-30% COHB Lethal: Greater than 60% COHB METHB Art 0.3 <=1.5 % [facility] LABORAT[facility] Na Whole Blood 140 135 [...] Blood 109 (H) 98 - 107 mmol/L [facility] LABORATORY Gluc Whole Bld 152 65 - 199 mg/dL [facility]OR[facility] Comment: Diabetes: >=200 mg/dL plus symp toms. Lactate WB 1.5 0.5 - 2.2 mmol/L [facility] LABORATORY Specimen Anatomical Collection Method Collection Time Receive d Time (Source) Location / / Volume Laterality Blood 05/15/2022 2:06 PM 2:[address] Jamel Torre MD CHEMISTRY ORDERABLES Performing Organization Address City/[facility]/ZIP Code Phon e Number [place] [phone] HOSPITAL LABORATORY Drive (ABNORMAL) Prothrombin Time (05/15/2022 [...] Morales DO HEMATOLOGY ORDERABLES Performing Organization Address City/[facility]/[place] [address] (ABNORMAL) APTT (05/15/2022 12:30 [...] Organization Address City/State/[place] [address] Gold Tube HOLD (05/15/2022 12:20 PM EDT) athologist Signature Gold Hold Sample in [facility] lab. [facility] LABORATORY Specimen Anatomical Collection Method Collection Time Receive d Time (Source) Location / / Volume Laterality Blood No Charge / 05/15/2022 12:20 05/15/2022 Unknown PM EDT 12:20 PM EDT Lc Dominick Kimberly TRIPP CHEMISTRY ORDERABLES Performing Organization Address City/State/[place] [address] Type and Screen Validity (05/15/2022 12:00 PM EDT) [facility] Method Time Signature T&S only valid [facility] at [facility] LABORATORY Comment: This Type and Screen result is only valid at the [facility] Specimen Anatomical Collection Method Collection Time Receive d Time (Source) Location / / Volume Laterality Blood 05/15/2022 12:00 05/15/2022 PM EDT 12:17 PM EDT Resulting Agency Comment Spec In Lab Lc TRIPP BLOOD BANK ORDERABLES Performing Organization Address City/[facility]/ZIP Code Phon e Number [address] ABORH Recheck Status (05/15/2022 12:00 PM EDT) [facility] Method Time Signature ABORH Recheck Order Placed [facility] K Order [facility] LABORATORY ABORH Type Complete [facility] LABORATORY Specimen Anatomical Collection Method Collection Time Receive d Time (Source) Location / / Volume Laterality Blood 05/15/2022 12:00 05/15/2022 PM EDT 12:17 PM EDT Resulting Agency Comment Spec In Lab Lc Dominick Kimberly TRIPP BLOOD BANK ORDERABLES Performing Organization Address City/State/ZIP [place] [address] CK (05/15/2022 12:00 PM EDT) P athologist Signature CK, Total 87 0 - 200 [facility] unit/L [facility] LABORATORY Specimen Anatomical Collection Method Collection Time Receive d Time (Source) Location / / Volume Laterality Blood Venous Draw / 05/15/2022 12:00 05/15/2022 Unknown PM EDT 12:19 PM EDT Resulting Agency Comment Spec In Lab Fito Summers MD CHEMISTRY ORDERABLES Performing Organization Address City/[facility]/[place]IP [place] [address] Antibody screen (05/15/2022 12:00 PM EDT) [facility] Method Time Signature Ab Screen Negative [facility] LABORATORY Expires at 05/18/2022 [facility] 2359 on: [facility] LABORATORY Specimen Anatomical Collection Method Collection Time Receive d Time (Source) Location / / Volume Laterality Blood 05/15/2022 12:00 05/15/2022 PM EDT 12:17 PM EDT Resulting Agency Comment Spec In Lab Lc TRIPP BLOOD BANK ORDERABLES Performing Organization Address City/[facility]/ZIP Code Phon e Number [address] ABO/Rh Typing (05/15/2022 12:00 PM EDT) athologist [facility] ABORh Type O Pos [facility] Specimen Anatomical Collection Method Collection Time Receive d Time (Source) Location / / Volume Laterality Blood 05/15/2022 12:00 05/15/2022 PM EDT 12:17 PM EDT Resulting Agency Comment Spec In Lab Lc Harris [place] BLOOD BANK ORDERABLES Performing Organization Address City/[facility]/ZIP Code Phon e Number [address] (ABNORMAL) Differential, Automated (05/15/2022 12:00 PM EDT) [facility] Method Time Signature Neutrophils % 79.4 % [facility]OR[facility] Neutr Abs (ANC) 7.49 (H) 1.70 - [facility] 6.10 [facility] x10(3)/[facility] L LABORATORY Lymphocytes % 11.3 % [facility]OR[facility] Lymphocytes Abs 1.1 0.9 - 3.2 [facility] x10(3)/[facility] LABORATORY Monocytes % 7.8 % [facility] Monocyte Abs 0.7 0.3 - 0.9 [facility] x10(3)/[facility] LABORATORY Eosinophils % 0.6 % [facility] Eosinophils Abs 0.1 0.0 - 0.4 [facility] x10(3)/[facility] LABORATORY Basophils % 0.6 % [facility] Basophils Abs 0.1 0.0 - 0.1 [facility] x10(3)/[facility] LABORATORY Immature Gran % 0.30 [...] Rain Gran Abs 0.03 0.00 - 0.04 x10(3)/[facility] LABORATORY Specimen Anatomical Collection Method Collection Time Receive d Time (Source) Location / / Volume Laterality Blood 05/15/2022 12:00 05/15/2022 PM EDT 12:19 PM EDT Resulting Agency Comment Spec In Lab Lc TRIPP HEMATOLOGY ORDERABLES Performing Organization Address City/State/[place] [address] (ABNORMAL) Hemogram (05/15/2022 12:00 PM EDT) Analysis Performed At Patho logist Time Signature WBC 9.4 4.0 - 9.5 [facility] x10(3)/[facility] [place] LABORATORY RBC 4.48 (L) 4.58 - [facility] 5.54 [facility] x10(6)/[facility] LABORATORY Hemoglobin 14.5 13.7 - [facility] 16.5 g/dL [facility] LABORATORY Hematocrit 42.4 40.5 - [facility] 48.5 % [facility] LABORATORY MCV 94.6 (H) 82.9 - [facility] 93.1 [facility] LAB[facility]ORY MCH 32.4 (H) 27.5 - [facility] 32.1 pg [facility] LABORATORY MCHC 34.2 32.0 - [facility] 35.7 g/dL [facility] LABORATORY Platelets 209 145 - 357 [facility] x10(3)/[facility] [place] LABORATORY RDWSD 45.9 (H) 36.0 - [facility] 45.0 [facility]ORY RDWCV 13.1 11.4 - [facility] 13.8 % [facility] LABORATORY MPV 10.5 7.6 - 12.9 [facility] LABORATORY nRBC % Auto 0.0 % [facility] LABORATORY nRBC Abs Auto 0.000 0.000 - [facility] 0.000 [facility] x10(3)/[facility] LABORATORY Specimen Anatomical Collection Method Collection Time Receive d Time (Source) Location / / Volume Laterality Blood 05/15/2022 12:00 05/15/2022 PM EDT 12:19 PM EDT Resulting Agency Comment Spec In Lab Lc TRIPP HEMATOLOGY ORDERABLES Performing Organization Address City/State/[place] [address] (ABNORMAL) Basic Metabolic Panel (non-fasting) (05/15/2022 12:00 PM EDT) P athologist Signature Glucose Lvl 203 (H) 65 - 199 [facility] mg/dL [facility] LABORATORY Comment: Diabetes: >=200 mg/dL plus symp toms BUN 16 10 - 20 mg/dL [facility] LABORATORY Creatinine 0.84 0.80 - 1.50 mg/dL [facility] LABORATORY Sodium 141 135 - 145 mmol/L [facility] LABORATORY Potassium 4.7 3.5 - 5.0 mmol/L [facility] [...] Anion Gap 11 5 - 15 mmol/L [facility] LABORATORY Calcium 8.5 8.5 - 10.5 mg/dL [facility] LABORATORY Estimated GFR 89 >=60 [...] Organization Address City/State/[place] [address] documented in this encounter [...] - Reason: Transfer to a Procedural area)1955 ([facility] Unhold - Provider: Admin Adt) [...] Provider: Barbie joseph RN - Reason: NPO)1750 ([facility] Hold - Provider: Admin Adt - Reason: Transfer to a Procedural area)1955 ([facility] Unhold - Provider: Admin Adt)2132 [...] 0853 (Given - Provider: Barbie Joyce RN)1750 ([facility] Hold - Provider: Admin Adt [...] - Reason: Transfer to a Procedural area)1955 ([facility] Unhold - Provider: Admin Adt) [...] (porcine) (1,000 units/mL) injection 0-8,000 Units 1750 ([facility] Hold - Provider: Admin Adt - Reason: Transfer to a Procedural area)1955 ([facility] Unhold - Provider: Admin Adt) [...] Flavia Schuler, RN)1745 (Given - Provider: Negra Bialey, DION) ONCE PRN, Starting on Fri05/20/22 at [...] - Reason: Transfer to a Procedural area)1955 ([facility] Unhold - Provider: Admin Adt) [...] - Reason: Transfer to a Procedural area)1955 ([facility] Unhold - Provider: Admin Adt) [...]
Routine documented in this encounter Care Teams Radio Tester Relationship Specialty Start Date End Date Bobby Das MD PCP - General 10/02/[address] [place] [address] [place] [address] documented as of this encounter
--- OUTSIDE RECORDS SUMMARY | 2022-07-10 09:36 | XMS_ITS | Encounter Summary ---
:1940 [place] [address] Care Team Providers Name Role Phone Bobby Das MD Primary Care Provider Reason for Visit Auth/Cert Specialty Diagnoses / Procedures Referred By Contact Refer red To Contact Diagnoses Limb ischemia LLE thrombus Fito Summers MD [facility] [place] [address] Referral ID Status Reason Start Date Expiration Date Visits Requ ested Visits Authorized [id number] 1 1 Encounter Details Date Type Department Care Team Description 05/15/2022 Anesthesia Event Main Operating Room Cari Briggs MD [facility] [address] [facility] Duong Aguillon CRNA [facility] [place] [address] [place] [address] Anesthesia Record Procedure Summary Procedure Name [...] Details Placement Removal Incision 05/15/22; 1408; Left; 05/15/22 1408 by groin Jaylene Herring RN Incision 05/15/22; 1526; Left, 05/15/22 1526 by lateral, lower; leg Jaylene Herring RN Incision 05/15/22; 1527; Left, 05/15/22 1527 by medial, lower; leg Jaylene Herring RN Incision 07/20/19; 1020; back; 07/20/19 1020 by 07/08/22 1715 by laparoscopic puncture; Fay Martínez, [place] er, Dierdre L biopsy site; 07/08/22 (DALI RN cleanup utility RA#[id number]); 1715 (LDA cleanup utility RA#[id number]) Incision 07/20/19; 1034; back; 07/20/19 1034 by 07/08/22 1715 by laparoscopic puncture; Fay Martínez, [place] er, Dierdre L vertbroplasty site; RN 07/08/22 (LDA cleanup utility RA#[id number]); 1715 (LDA cleanup utility RA#[id number]) Incision 10/25/20; 0912; thoracic 10/25/20 0912 by 1715 by spine; non-laparascopic Keisha Vargas RN [place] er, Dierdre L puncture; vertebroplasty site; 07/08/22 (LDA cleanup utility RA#[id number]); 1715 (LDA cleanup utility RA#[id number]) PIV 05/15/22; 1204; median 05/15/22 1204 by 05/16/22 1117 by cubital vein (antecubital Marcia Dimas RN Amb ros, Andrea L, DION fossa), left; [id number]-[id number] catheter system; 18 gauge; OSH; site care per policy/procedure, site symptomatic, removed per policy/procedure, catheter/device intact; 05/16/22; 1117 PIV 05/15/22; 1204; median 05/15/22 1204 by 05/16/22 0738 by cubital vein (antecubital Marcia Dimas RN Gon zalez, Adriana, fossa), right; RN xzqq-ftt-eegknq catheter system; 18 gauge; OSH; 05/16/22; 0738 ETT 05/15/22 1340 by 05/15/22 1648 b y Torres Aguilar, Arron Graham, ANNY Urethral Catheter 05/15/22; 1340; Surgery 05/15/22 1340 by 05/16 1010 by longer than 2 hours; Jaylene Herring RN Lamso n, Marciana, RN indwelling double lumen catheter; hydrophilic coated, latex; [...] Procedure Summary Date: 05/15/22 Room / Location: [facility] OR [address] [place] [address] MAIN OR Anesthesia Start: 1320 Anesthesia Stop: 1633 Procedure: EMBOLECTOMY OR THROMBECTOMY, FEMOROPOPLITEAL, AORTOILIAC ARTERY BY LEG INCISION [facility] (Left ) Diagnosis: (Acute Limb Ischemia) Surgeons: Fito Summers MD Responsible Provider: Cari Ventura MD Anesthesia Type: general ASA Status: 3 - Emergent All Anesthesia Providers: Anesthesiologist: Cari Ventura MD TRUCK ENGINE ASSEMBLER: Torres Aguilar CRNA Vitals Value Taken Time BP 108/69 05/15/22 1715 Temp 36.3 ??C (97.3 ??F) 05/15/22 1633 Pulse 110 05/15/22 1719 Resp 16 05/15/22 1719 SpO2 89 % 05/15/22 1719 Pain Level Vitals shown include unvalidated device data. Patient Location: PACU/[facility] Level of Consciousness: Awake and Alert [...] AORTOILIAC ARTERY BY LEG INCISION ([facility] 19.48) Patient Active Problem List Diagnosis Date [...] IR Biopsy Spine 07/20/2019 Bobby Marshall MD [facility] INTERVENTIONL RAD ??? IR VERTEBROPLASTY LUMBAR MULTIPLE LEVELS 07/20/2019 IR Vertebroplasty Lumbar Multiple Levels 07/20/2019 Bobby Marshall MD [facility] INTERVENTIONL RAD ??? 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 Plan discussed with TRUCK ENGINE ASSEMBLER. Anesthesia Screening documented in this encounter Plan of Treatment Upcoming Encounters Date Type Specialty Care Team Description 08/08/2022 Office Visit Gastroenterology Negra Collins MD [facility] GASTROENTEROLOGY DEPT [place], [place] [address] (Wo rk) 09/05/2022 Appointment Cardiology Trinity Reid MD [facility] CARDIOLOGY [place], [place] 0[address] (Wo rk) 09/05/2022 Office Visit Cardiology Trinity Reid MD [facility] CARDIOLOGY [place], [place] [address] (Wo rk) documented as of [...] Routine documented in this encounter Care Teams Senior Financial Consultant Relationship Specialty Start Date End Date Bobby Das MD PCP - General 10/02/[address] [place] [address] [place] [phone] documented as of this encounter
--- OUTSIDE RECORDS SUMMARY | 2022-07-10 09:37 | XMS_ITS | Encounter Summary ---
:1940 Author Organization [facility] [place] [address] Care Team Providers Name Role Phone Bobby Das MD Primary Care Provider Reason for Referral Diagnostic Test (Routine) - Specialty Diagnoses / Procedures Referred By Contact Refer red To Contact Radiology Diagnoses Chest pain, unspecified type Chronic abdominal pain Chano Rebolledo MD [facility] Rad Ct Scan Procedures CT Chest w Contrast CT Chest wo Contrast (Generic) [facility] [place] [address] [place] [address] Referral ID Status Reason Start Date Expiration Visits Visits Date Requested Authorized [id number] Specialty 12/13/2016 12/13/2017 1 1 Service Requested Diagnostic Test (Routine) - Closed Specialty Diagnoses / Procedures Referred By Contact Refer red To Contact Radiology Diagnoses Chest pain, unspecified type Chronic abdominal pain Chano Rebolledo MD [facility] Rad Ct Scan Procedures CT Abdomen & Pelvis w Contrast [facility] [place] [address] [place] [address] Referral ID Status Reason Start Date Expiration Date Visits V isits Requested Authorized [id number] Closed Specialty 12/13/2016 12/13/2017 1 1 Service Requested Reason for Visit Diagnostic Test (Routine) - Closed Specialty Diagnoses / Procedures Referred By Contact Refer red To Contact Radiology Diagnoses Chest pain, unspecified type Chronic abdominal pain Chano Rebolledo MD [facility] Rad Ct Scan Procedures CT Abdomen & Pelvis w Contrast [facility] [place] [address] [place] [address] Referral ID Status Reason Start Date Expiration Date Visits V isits Requested Authorized [id number] Closed Specialty 12/13/2016 12/13/2017 1 1 Service Requested Encounter Details Date Type Department Care Team Description 12/17/[address] Scan at [facility], Chest pain, unspecified type ; [facility] Leonel Sullivan MD Chronic abdominal pain [facility] [address] PAIN CLINIC [phone] [place] [address] Social History Tobacco Use Types [...] Gastroenterology Negra Collins MD [facility] GASTROENTEROLOGY DEPT [place], [place] [address] (Wo rk) 09/05/2022 Appointment Cardiology Trinity Reid MD [facility] DR WARN[address] [place], [place] [address] (Wo rk) 09/05/2022 Office Visit Cardiology Trinity Reid MD [facility] DR [address] [place], [place] [address] (Wo rk) documented as of [...] interpretation and agree with the findings, Sharmila uqezada 12/17/2016 4:06 PM Narrative 12/17/2016 4:06 PM [...] 1237 documented in this encounter Care Teams Tape Librarian Relationship Specialty Start Date End Date Bobby Das MD PCP - General 10/02/[address] [place] [address] [place] [address] documented as of this encounter
--- OUTSIDE RECORDS SUMMARY | 2022-07-10 09:37 | XMS_ITS | Encounter Summary ---
:1940 Author Organization [facility] [place] [address] Care Team Providers Name Role Phone Bobby Das MD Primary Care Provider Encounter Details Date Type Department Care Team Description 08/28/2020 Ancillary Procedure Radiology at [facility] Amy Grimaldo [address] [place] [address] 10 LITTLE JAY [phone] NEUROSURGERY-N [place], [place] [address] Social History Tobacco Use Types [...] [facility] GASTROENTEROLOGY DEPT [place], [place] 0[address] (Wo rk) 09/05/2022 Appointment Cardiology Trinity Reid MD [facility] CARDIOLOGY [place], [place] [address] (Wo rk) 09/05/2022 Office Visit Cardiology Trinity Reid MD [facility] CARDIOLOGY [place], [place] [address] (Wo rk) documented as of [...] Organization Address City/State/ZIP Code Phon e Number [place], [place] documented in this encounter Visit Diagnoses Not on filedocumented in this encounter Care Teams Arch Cushion Skiving Machine Operator Relationship Specialty Start Date End Date Bobby Das MD PCP - General 10/02/[address] [place] [address] [place] [phone] documented as of this encounter
--- OUTSIDE RECORDS SUMMARY | 2022-07-10 09:37 | XMS_ITS | Encounter Summary ---
:1940 [place] [address] Care Team Providers Name Role Phone Bobby Das MD Primary Care Provider Reason for Visit Reason Comments Wound Check Encounter Details Date Type Department Care Team Description 10/25/2015 Clinical Support Dermatology at Christine Gonzalez MD Follow up [facility] [address] [facility] [place] [address] [place] [address] [phone] (Wo rk) Social History Tobacco Use Types Packs/Day Years Used Date Current Some Day Smoker 1 50 Smokeless Tobacco: Never Used Sex Assigned at Date Recorded Not on file documented as of this encounter Progress Notes Leo Solo MD - 10/25/2015 1:01 PM EST CC: Wound check HPI: Patient is a 75 y.o. male with history of basal cell carcinoma, right voodoo, s/p Mohs, repaired by transposition flap on who presents for wound check. Denies complications. States when he blinks he can feel the scar tissue. ROS: Otherwise well. No other skin complaints. Exam: General: No acute distress Skin: Limited examination of right voodoo shows a well-healed flap with hypertrophy at the edge. Assessment and Plan 1. Basal cell carcinoma, right voodoo, s/p Mohs, repaired by transposition flap Kenalog [...] 08/08/2022 Office Visit Gastroenterology Negra Collins MD [facility] DR GASTROENTEROLOGY DEPT [place], [place] [address] (Wo rk) 09/05/2022 Appointment Cardiology Trinity Reid MD [facility] CARDIOLOGY [place], [place] [address] (Wo rk) 09/05/2022 Office Visit Cardiology Trinity Reid MD [facility] CARDIOLOGY [place], [place] [address] (Wo rk) documented as of this encounter Visit Diagnoses Diagnosis Follow up documented in this encounter Care Teams Prosthetics Lab Technician Relationship Specialty Start Date End Date Bobby Das MD PCP - General 10/02/[address] [place] [address] [place] [phone] documented as of this encounter
--- OUTSIDE RECORDS SUMMARY | 2022-07-10 09:37 | XMS_ITS | Encounter Summary ---
:1940 Author Organization [facility] [place] [address] Care Team Providers Name Role Phone Bobby Das MD Primary Care Provider Encounter Details Date Type Department Care Team Description 05/15/2022 Ancillary Procedure Radiology Library at [facility], Lavell Butt, [facility] [place] [address] VASCULAR SURGERY [phone] [place] [id number] (Wo rk) Social History Tobacco Use Types [...] Negra Collins MD [facility] DR GASTROENTEROLOGY DEPT [place], [place] 0375 (Wo rk) 09/05/2022 Appointment Cardiology Trinity Reid MD [facility] CARDIOLOGY [place], [place] [address] (Wo rk) 09/05/2022 Office Visit Cardiology Trinity Reid MD [facility] [place]ARDIOLOGY [place], [place] [address] (Wo rk) documented as of [...] Organization Address City/State/ZIP Code Phon e Number [place], [place] documented in this encounter Visit Diagnoses Not on filedocumented in this encounter Care Teams Pitching Coach Relationship Specialty Start Date End Date Bobby Das MD PCP - General 10/02/[address] [place] [address] [place] [phone] documented as of this encounter
--- OUTSIDE RECORDS SUMMARY | 2022-07-10 09:37 | XMS_ITS | Encounter Summary ---
:1940 Author Organization [facility] [place] [address] Care Team Providers Name Role Phone Bobby Das MD Primary Care Provider Encounter Details Date Type Department Care Team Description 07/26/2015 External Results Medical Records Provider, [facility] [place] [address] Social History Tobacco Use Types Packs/Day Years Used Date Current Some Day Smoker 1 50 Smokeless Tobacco: Never Used Sex Assigned at Date Recorded Not on file documented as of this encounter Plan of Treatment Upcoming Encounters Date Type Specialty Care Team Description 08/08/2022 Office Visit Gastroenterology Negra Collins MD [facility] GASTROENTEROLOGY DEPT [place], [place] [address] (Wo rk) 09/05/2022 Appointment Cardiology Trinity Reid MD [facility] CARDIOLOGY [place], [place] [address] (Wo rk) 09/05/2022 Office Visit Cardiology Trinity Reid MD [facility] CARDIOLOGY [place], [place] 0375 (Wo rk) documented as of [...] on filedocumented in this encounter Care Teams Gui Developer Relationship Specialty Start Date End Date Bobby Das MD PCP - General 10/02/[address] [place] [address] [place] [phone] documented as of this encounter
--- OUTSIDE RECORDS SUMMARY | 2022-07-10 09:37 | XMS_ITS | Encounter Summary ---
:1940 Author Organization [facility] [place] [address] Care Team Providers Name Role Phone Bobby Das MD Primary Care Provider Reason for Referral Consultation (Routine) - Closed Specialty Diagnoses / Procedures Referred By Contact Refer red To Contact Neurology Diagnoses Low back pain, non-specific Status post vertebroplasty Transient left leg weakness EMG Arpita Whitney APRN [facility] [address] [place], [place] [address] [place] [phone] Fax: Referral ID Status Reason Start Date Expiration Date Visits V isits Requested Authorized [id number] Closed Consult, 04/17/2021 04/17/2022 1 1 Test & Treat hysical Therapy (Routine) - Specialty Diagnoses / Procedures Referred By Contact Refer red To Contact Diagnoses Low back pain, non-specific Status post vertebroplasty [place] [address] Referral ID Status Reason Start Date Expiration Date Visits V isits Requested Authorized [id number] Evaluate and 04/17/2021 10/14/2021 12 12 Treat Reason for Visit Reason Comments Back Pain new patient visit Consultation (Routine) - Closed Specialty Diagnoses / Procedures Referred By Contact Refer red To Contact [facility] Diagnoses Low back pain Pain - Low back pain/ MRI 02/20/21 & XR 01/31/21 @ [facility] Bobby Das MD [facility] Pain And [address] [place], [place] [address] [address] [place] [address] Phone: Fax: Referral ID Status Reason Start Date Expiration Date Visits Requ ested Visits Authorized [id number] Closed 03/07/2021 03/07/2022 1 1 Encounter Details Date Type Department Care Team Description 04/17/2021 Office Visit [facility] Arpita Whitney Lo w back pain, non-specific; at [facility] ELECTRICIAN SUBSTATION SUPERVISOR Status post vertebroplasty; [facility] Tra nsient left leg weakness Drive [place], [place] [phone] Social History Tobacco [...] from the original note were not included. [facility] Date of [...] standing limited due to back pain [facility] Prescription Monitoring Program was checked. The number of prescriptions reported was 0. Current Medications: Outpatient Medications Marked as Taking for the 04/17/21 encounter (Office Visit) with Arpita Whitney APRN Medication Sig Dispense Refill ??? fluticasone propionate (FLONASE) 50 mcg/actuation [place], Suspension as needed. ??? fluorouraciL (EFUDEX) 5 [...] IR Biopsy Spine 07/20/2019 Bobby Marshall MD [facility] INTERVENTIONL RAD ??? IR VERTEBROPLASTY LUMBAR MULTIPLE LEVELS 07/20/2019 IR Vertebroplasty Lumbar Multiple Levels 07/20/2019 Bobby Marshall MD [facility] INTERVENT[facility] RAD ??? IR VERTEBROPLASTY THORACIC SINGLE LEVEL 10/25/2020 IR Vertebroplasty Thoracic Single Level 10/25/2020 Matt Chisholm MD [facility] INTERVENTIONL RAD Review of Systems: ROS: [...] y.o. year-old male who presents to the [facility] for [facility] and Spine clinic, previously [...] Mr. Koko Zamora's care. Arpita Whitney, MSN, JACQUARD LOOM HEDDLES TIER- C, ELECTRICIAN SUBSTATION SUPERVISOR Nurse Practitioner [facility] [place] [address] / [facility] documented in this encounter Plan of Treatment Upcoming Encounters Date Type Specialty Care Team Description 08/08/2022 Office Visit Gastroenterology Negra Collins MD [facility] GASTROENTEROLOGY DEPT [place], [place] [address] (Wo rk) 09/05/2022 Appointment Cardiology Trinity Reid MD [facility] CARDIOLOGY [place], [place] [address] (Wo rk) 09/05/2022 Office Visit Cardiology Trinity Reid MD [facility] CARDIOLOGY [place], [place] [address] (Wo rk) Scheduled Referrals Name [...] limbs documented in this encounter Care Teams Drafting Supervisor Relationship Specialty Start Date End Date Bobby Das MD PCP - General 10/02/[address] [place] [address] [place] [phone] documented as of this encounter
--- OUTSIDE RECORDS SUMMARY | 2022-07-10 09:37 | XMS_ITS | Encounter Summary ---
:1940 Author Organization [facility] [place] [address] Care Team Providers Name Role Phone Bobby Das MD Primary Care Provider Encounter Details Date Type Department Care Team Description 05/15/2022 Ancillary Procedure Radiology Library at [facility], Lavell Butt, [facility] [place] [address] VASCULAR SURGERY [phone] [place] [phone] (Wo rk) Social History Tobacco Use Types [...] [facility] DR GASTROENTEROLOGY DEPT [place], [place] [address] (Wo rk) 09/05/2022 Appointment Cardiology Trinity Reid MD [facility] CARDIOLOGY [place], [place] [address] (Wo rk) 09/05/2022 Office Visit Cardiology Trinity Reid MD [facility] CARDIOLOGY [place], [place] [address] (Wo rk) documented as of [...] Organization Address City/State/ZIP Code Phon e Number [place], [place] documented in this encounter Visit Diagnoses Not on filedocumented in this encounter Care Teams Returned Goods Sorter Relationship Specialty Start Date End Date Bobby Das MD PCP - General 10/02/[address] [place] [address] [place] [phone] documented as of this encounter
--- OUTSIDE RECORDS SUMMARY | 2022-07-10 09:37 | XMS_ITS | Encounter Summary ---
:1940 Author Organization [facility] [place] [address] Care Team Providers Name Role Phone Bobby Das MD Primary Care Provider Encounter Details Date Type Department Care Team Description 08/06/2020 Ancillary Procedure Radiology at [facility] Amy Grimaldo [address] [place] [address] 10 LITTLE JAY [phone] NEUROSURGERY-N [place], [place] [address] Social History Tobacco Use Types [...] 08/08/2022 Office Visit Gastroenterology Negra Collins MD [facility] GASTROENTEROLOGY DEPT [place], [place] [address] (Wo rk) 09/05/2022 Appointment Cardiology Trinity Reid MD [facility] CARDIOLOGY [place], [place] [address] (Wo rk) 09/05/2022 Office Visit Cardiology Trinity Reid MD [facility] CARDIOLOGY [place], [place] [address] (Wo rk) documented as of [...] Organization Address City/State/ZIP Code Phon e Number [place], [place] documented in this encounter Visit Diagnoses Not on filedocumented in this encounter Care Teams Process Trainer Relationship Specialty Start Date End Date Bobby Das MD PCP - General 10/02/[address] [place] [address] [place] [phone] documented as of this encounter
--- OUTSIDE RECORDS SUMMARY | 2022-07-10 09:37 | XMS_ITS | Encounter Summary ---
:1940 Author Organization [facility] Address [facility] [place] [address] Care Team Providers Name Role Phone Bobby Das MD Primary Care Provider Reason for Visit Reason Comments Shortness of Breath Encounter Details Date Type Department Care Team Description 06/28/2011 Office Visit Cardiology at [facility] Chet Nicole SOB (shortness of breath) (P rimary Dx); [facility] GIB (gastrointestinal bleeding); Drive [facility] MVP (mitral valve prolapse) [place] [address] CARDIOLOGY DEPT. [phone] [place], [place] [address] Social History Tobacco Use Types [...] Giordano MD - 06/28/2011 4:15 PM EDT [facility] Cholesterol and Triglycerides Tests: About These [...] 60 mg/dl is considered ideal. ?? Total yuvjwoxhvzh-up-IHA ratio: A ratio of 5:1 or lower is recommended. ?? LDL cholesterol: Between 100-129 mg/dL is recommended. Lower than 100 mg/dL is considered ideal. ?? VLDL cholesterol: 30 mg/dL or less is recommended. ?? Triglycerides: Lower than 150 mg/dL is recommended. Where can you learn more? Visit our health information library at [email or web address]. You can also view health information on [employer], your personal patient account. Log in or sign up today. Enter V788 in the search box to learn more about Cholesterol and Triglycerides Tests: About These Tests. ?? [id number] [employer]. Care instructions adapted under license by [facility]. This care instruction is for use with your licensed healthcare professional. If you have questionsabout a medical condition or this instruction, always ask your healthcare professional. [employer] disclaims any warranty or liability for your [...] valve prolapse) s/p repair Surgery done at [facility] in 2000 ??? Hypertriglyceridemia ??? Adhesive capsulitis of L shoulder ??? Alcohol use Medications: [place]-3 Fatty Acids-Vitamin E (FISH OIL) 1,000 mg [...] Negra Collins MD [facility] GASTROENTEROLOGY DEPT [place], [place] [address] (Wo rk) 09/05/2022 Appointment Cardiology Trinity Reid MD [facility] CARDIOLOGY [place], [place] [address] (Wo rk) 09/05/2022 Office Visit Cardiology Trinity Reid MD [facility] CARDIOLOGY [place], [place] [address] (Wo rk) documented as of this encounter Procedures Procedure Name Priority Date/Time Associated Diagnosis Comme nts EKG 12-LEAD Routine 06/28/2011 2:59 PM SOB (shortness of Resu lts for this EDT breath) procedure are i n the results section . documented in this encounter Results EKG 12 Lead (06/28/2011 2:59 PM EDT) [facility] Method Time Signature Ventricular rate 70 BPM MUSE SYSTEM Atrial Rate 70 BPM MUSE SYSTEM P-R Interval 182 ms MUSE SYSTEM QRS Duration 106 ms MUSE SYSTEM Q-T Interval 406 ms MUSE SYSTEM QTC Calculated 438 ms MUSE SYSTEM (Bezet) Calculated P Merrill 60 degrees MUSE SYSTEM Calculated R Merrill -51 degrees MUSE SYSTEM Calculated T Merrill 32 degrees MUSE SYSTEM INTERPRETATION Normal sinus [...] disorders documented in this encounter Care Teams Grass Farm Laborer Relationship Specialty Start Date End Date Bobby Das MD PCP - General 10/02/[address] [place] [address] [place] [phone] documented as of this encounter
--- OUTSIDE RECORDS SUMMARY | 2022-07-10 09:37 | XMS_ITS | Encounter Summary ---
:1940 Author Organization [facility] [place] [address] Care Team Providers Name Role Phone Bobby Das MD Primary Care Provider Encounter Details Date Type Department Care Team Description 07/20/2019 Laboratory Lab 3L Ifrah Gastrointestina l Appointment [facility] hemorrhag e, unspecified Hospital gastrointestinal [facility] [place] [phone] Social History Tobacco Use Types Packs/Day Years [...] [facility] DR GASTROENTEROLOGY DEPT [place], [place] [address] (Wo rk) 09/05/2022 Appointment Cardiology Trinity Reid MD [facility] CARDIOLOGY [place], [place] [address] (Wo rk) 09/05/2022 Office Visit Cardiology Trinity Reid MD [facility] CARDIOLOGY [place], [place] [address] (Wo rk) documented as of this encounter Procedures Procedure Name Priority Date/Time Associated Diagnosis Comme [facility] HEMOGRAM Routine 07/20/2019 8:18 Gastrointestinal Results for [...] Time Signature WBC 6.0 4.0 - 9.[address] [facility] x10(3)/[facility] LABORATORY RBC 4.50 (L) 4.58 - [facility] 5.54 [facility] x10(6)/[facility] LABORATORY Hemoglobin 14.8 13.7 - [facility] 16.5 gm/dL [facility] LABORATORY Hematocrit 43.9 40.5 - [facility] 48.5 % [facility] LABORATORY MCV 97.6 (H) 82.9 - [facility] 93.1 [facility] LABORATORY MCH 32.9 (H) 27.5 - [facility] 32.1 pg [facility] LABORATORY MCHC 33.7 32.0 - [facility] 35.7 gm/dL [facility] LABORATORY Platelets 164 145 - 357 [facility] x10(3)/[facility] LABORATORY RDWSD 49.3 (H) 36.0 - [facility] 45.0 [facility] LABORATORY RDWCV 13.6 11.4 - [facility] 13.8 % [facility] LABORATORY MPV 10.0 7.6 - 12.[address] [facility] LABORATORY nRBC % Auto 0.0 % [facility] LABORATORY nRBC Abs Auto 0.000 0.000 - [facility] 0.000 [facility] x10(3)/[facility] LABORATORY Specimen Anatomical Collection Method Collection Time Receive d Time (Source) Location / / Volume Laterality Blood specimen 07/20/2019 8:18 AM 019 8:21 (specimen) EDT AM EDT Resulting Agency Comment Spec In Lab Bobby Marshall MD HEMATOLOGY ORDERABLES Performing Organization Address City/State/ZIP [place] [address] Prothrombin Time (07/20/2019 8:18 AM EDT) P athologist Signature PT 11.3 9.4 - 12.5 [facility] LABORATORY INR 1.0 [facility] LABORATORY [...] Organization Address City/State/ZIP [place] [address] documented in this encounter Visit Diagnoses Diagnosis Gastrointestinal hemorrhage, unspecified gastrointestinal hemorrhage type documented in this encounter Care Teams Servicing Manager Relationship Specialty Start Date End Date Bobby Das MD PCP - General 10/02/[address] [place] [address] Dr [place], [place] [phone] documented as of this encounter
--- OUTSIDE RECORDS SUMMARY | 2022-07-10 09:37 | XMS_ITS | Encounter Summary ---
:1940 Author Organization [facility] Address [facility] [place] [address] Care Team Providers Name Role Phone Bobby Das MD Primary Care Provider Reason for Visit - Closed Specialty Diagnoses / Procedures Referred By Contact Refer red To Contact Procedures Bobby Das MD Film Library- Storage Only [address] [place] [phone] Referral ID Status Reason Start Date Expiration Date Visits Requ ested Visits Authorized [id number] Closed 02/23/2021 02/23/2022 1 1 Encounter Details Date Type Department Care Team Description 02/20/2021 Ancillary Procedure Radiology Library at Bobby Almaguer MD [address] [phone] (Rebekah rojas) Social History Tobacco Use Types [...] MD [facility] DR GASTROENTEROLOGY DEPT [place], [place] 0375 (Wo rk) 09/05/2022 Appointment Cardiology Trinity Reid MD [facility] CARDIOLOGY [place], [place] [address] (Wo rk) 09/05/2022 Office Visit Cardiology Trinity Reid MD [facility] ER CARDIOLOGY [place], [place] 0[address] (Wo rk) documented as of [...] Organization Address City/State/ZIP Code Phon e Number [place], [place] documented in this encounter Visit Diagnoses Not on filedocumented in this encounter Care Teams Veterinarian Helper Relationship Specialty Start Date End Date Bobby Das MD PCP - General 10/02/[address] [place] [address] [place] [phone] documented as of this encounter
--- OUTSIDE RECORDS SUMMARY | 2022-07-10 09:37 | XMS_ITS | Encounter Summary ---
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, sequela Closed compression fracture of L1 lumbar vertebra with delayed healing, subsequent encounter Malignant neoplasm of prostate Zbigniew Thompson PA [facility] Interventionl Rad Procedures IR Vertebroplasty Lumbar Multiple Levels IR Vertebral Augmentation Lumbar Single Level [facility] [place] [address] [place] [address] Fax: Referral ID Status Reason Start Date Expiration Date Visits V isits Requested Authorized [id number] Closed Specialty 07/13/2019 07/12/2020 1 1 Service Requested iagnostic Test (Routine) - Closed Specialty Diagnoses / Procedures Referred By Contact Refer red To Contact Radiology Diagnoses Closed compression fracture of L1 lumbar vertebra with delayed healing, subsequent encounter Malignant neoplasm of prostate Zbigniew Thompson PA [facility] Interventionl Rad [place] [address] [place] [address] Fax: Referral ID Status Reason Start Date Expiration Date Visits V isits Requested Authorized [id number] Closed Specialty 07/13/2019 07/12/2020 1 1 Service Requested Reason for Visit Reason Comments Back Pain Consultation (ANDREINA) - Closed Specialty Diagnoses / Procedures Referred By Contact Refer red To Contact [facility] Diagnoses Collapsed vertebra, not elsewhere classified, lumbar region, subsequent encounter for fracture with routine healing Bobby Das MD [facility] [address] [place], [place] Drive [address] [place] [address] Phone: Fax: Referral ID Status Reason Start Date Expiration Date Visits V isits Requested Authorized [id number] Closed Consult, 06/30/2019 06/29/2020 1 1 [facility] Encounter Details Date Type Department Care Team Description 07/13/2019 Office Visit [facility] Zbigniew Thompson, Closed compression fracture of L1 lumbar vertebra with delayed healing, subsequent encounter; at [facility] Malignant neoplasm of prostate; [facility] Age -related 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, sequela [address] [place], [place] [phone] Social History Tobacco Use Types Packs/Day Years [...] Gastroenterology Negra Collins MD [facility] DR GASTROENTEROLOGY DEPT [place], [place] 0375 (Wo rk) 09/05/2022 Appointment Cardiology Trinity Reid MD [facility] CARDIOLOGY [place], [place] [address] (Wo rk) 09/05/2022 Office Visit Cardiology Trinity Reid MD [facility] CARDIOLOGY [place], [place] 0375 (Wo rk) documented as of [...] made and a 13g a introducer needle (Shape Collage) was advanced through the right pedicle and [...] made an d a 13ga introducer needle (Shape Collage) was advanced through the left pedicle and [...] made and a 13g a introducer needle (Shape Collage) was advanced through the right pedicle and [...] made an d a 13ga introducer needle (Shape Collage) was advanced through the left pedicle and [...] made and a 13g a introducer needle (Shape Collage) was advanced through the right pedicle and [...] made an d a 13ga introducer needle (Shape Collage) was advanced through the left pedicle and [...] made and a 13g a introducer needle (Shape Collage) was advanced through the right pedicle and [...] made an d a 13ga introducer needle (Shape Collage) was advanced through the left pedicle and [...] sequela documented in this encounter Care Teams Rehab Director Relationship Specialty Start Date End Date Bobby Das MD PCP - General 10/02/[address] [place] [address] [place] [phone] documented as of this encounter
--- OUTSIDE RECORDS SUMMARY | 2022-07-10 09:37 | XMS_ITS | Encounter Summary ---
:1940 Author Organization [facility] [place] [address] Care Team Providers Name Role Phone Bobby Das MD Primary Care Provider Encounter Details Date Type Department Care Team Description 06/16/2019 Ancillary Procedure Radiology Library at Bobby Almaguer MD [facility] [address] [place] [phone] (Wo rk) Social History Tobacco Use Types Packs/Day Years Used Date Current Some Day Smoker 1 50 Smokeless Tobacco: Never Used Sex Assigned at Date Recorded Not on file documented as of this encounter Plan of Treatment Upcoming Encounters Date Type Specialty Care Team Description 08/08/2022 Office Visit Gastroenterology Negra Collins MD [facility] DR GASTROENTEROLOGY DEPT [place], [place] [address] (Wo rk) 09/05/2022 Appointment Cardiology Trinity Reid MD [facility] CARDIOLOGY [place], [place] [address] (Wo rk) 09/05/2022 Office Visit Cardiology Trinity Reid MD [facility] CARDIOLOGY [place], [place] 0375 (Wo rk) documented as of [...] Organization Address City/State/ZIP Code Phon e Number [place], [place] documented in this encounter Visit Diagnoses Not on filedocumented in this encounter Care Teams Plush Weaver Relationship Specialty Start Date End Date Bobby Das MD PCP - General 10/02/[address] [place] [address] [place] [phone] documented as of this encounter
--- OUTSIDE RECORDS SUMMARY | 2022-07-10 09:37 | XMS_ITS | Encounter Summary ---
:1940 Author Organization [facility] Address [facility] [place] [address] Care Team Providers Name Role Phone Bobby Das MD Primary Care Provider Encounter Details Date Type Department Care Team Description 10/25/2020 Laboratory Appointment Lab at [facility] Compression fracture [facility] of T9 [place] [address] Social History Tobacco Use Types Packs/Day Years [...] [facility] DR GASTROENTEROLOGY DEPT [place], [place] 0[address] (Wo rk) 09/05/2022 Appointment Cardiology Trinity Reid MD [facility] CARDIOLOGY [place], [place] [address] (Wo rk) 09/05/2022 Office Visit Cardiology Trinity Reid MD [facility] CARDIOLOGY [place], [place] [address] (Wo rk) documented as of this encounter Procedures Procedure Name Priority Date/Time Associated Diagnosis Comme [facility] VENIPUNCTURE Routine 10/25/2020 6:35 AM Compression fractur [...] athologist Signature Platelets 192 145 - 357 [facility] x10(3)/[facility] LABORATORY Plat Immature 2.6 0.0 - 7.4 [facility] % % [facility] LABORATORY Comment: Limitation of the Immature Platelet Frac tion (IPF)-May be less reliable when the platelet count is less than 84d562/u L due to statistical imprecision. The IPF [...] in a decreased state of production. References: [employer] The Clinical Value of the Immature Platelet Fraction (IPF) in Cell Recovery Document Number 10-1143 04/2011 [employer] The Role of the Imm ature [...] Organization Address City/State/[place] [address] Prothrombin Time (10/25/2020 6:35 AM EST) athologist Signature PT 10.8 9.4 - 12.5 [facility] LABORATORY INR 1.0 [facility] LABORATORY Comment: An INR [...] Organization Address City/State/ZIP Code Phon e Number [place] [phone] HOSPITAL LAB[address]ORY [address] documented in this encounter Visit Diagnoses Diagnosis Compression fracture of T9 vertebra, ini tial encounter documented in this encounter Care Teams President [employer] Relationship Specialty Start Date End Date Bobby Das MD PCP - General 10/02/[address] [place] [address] [place] [phone] documented as of this encounter
--- OUTSIDE RECORDS SUMMARY | 2022-07-10 09:37 | XMS_ITS | Encounter Summary ---
:1940 Author Organization [facility] [place] [address] Care Team Providers Name Role Phone Bobby Das MD Primary Care Provider Encounter Details Date Type Department Care Team Description 12/20/2016 Telephone Pain Management at [facility] Kristin Schultz, RN [facility] [place] [address] Social History Tobacco Use Types Packs/Day Years Used Date Current Some Day Smoker 1 50 Smokeless Tobacco: Never Used Sex Assigned at Date Recorded Not on file documented as of this encounter Miscellaneous Notes Telephone Encounter - Kristin Schultz LPN - 12/20/2016 11:02 AM EST Pt called requesting that the Referral to Hematology and Oncology be sent to [facility] [place] [place]. Will Follow up up with the pain clinic after appointment. documented in this encounter Plan of Treatment Upcoming Encounters Date Type Specialty Care Team Description 08/08/2022 Office Visit Gastroenterology Negra Collins MD [facility] GASTROENTEROLOGY DEPT [place], [place] [address] (Wo rk) 09/05/2022 Appointment Cardiology Trinity Reid MD [facility] CARDIOLOGY [place], [place] [address] (Wo rk) 09/05/2022 Office Visit Cardiology Trinity Reid MD [facility] CARDIOLOGY [place], [place] [address] (Wo rk) documented as of this encounter Visit Diagnoses Not on filedocumented in this encounter Care Teams Vending Technician Relationship Specialty Start Date End Date Bobby Das MD PCP - General 10/02/[address] [place] [address] [place] [phone] documented as of this encounter
--- OUTSIDE RECORDS SUMMARY | 2022-07-10 09:37 | XMS_ITS | Encounter Summary ---
:1940 Author Organization [facility] [place] [address] Care Team Providers Name Role Phone Bobby Das MD Primary Care Provider Encounter Details Date Type Department Care Team Description 05/13/2018 Ancillary Procedure Radiology Library at Bobby Almaguer MD [facility] [address] [place] [phone] (Wo rk) Social History Tobacco Use Types Packs/Day Years Used Date Current Some Day Smoker 1 50 Smokeless Tobacco: Never Used Sex Assigned at Date Recorded Not on file documented as of this encounter Plan of Treatment Upcoming Encounters Date Type Specialty Care Team Description 08/08/2022 Office Visit Gastroenterology Negra Collins MD [facility] DR GASTROENTEROLOGY DEPT [place], [place] [address] (Wo rk) 09/05/2022 Appointment Cardiology Trinity Reid MD [facility] CARDIOLOGY [place], [place] [address] (Wo rk) 09/05/2022 Office Visit Cardiology Trinity Reid MD [facility] CARDIOLOGY [place], [place] 0[address] (Wo rk) documented as of [...] Organization Address City/State/ZIP Code Phon e Number [place], [place] documented in this encounter Visit Diagnoses Not on filedocumented in this encounter Care Teams Dry Curer Relationship Specialty Start Date End Date Bobby Das MD PCP - General 10/02/[address] [place] [address] [place] [phone] documented as of this encounter
--- OUTSIDE RECORDS SUMMARY | 2022-07-10 09:37 | XMS_ITS | Encounter Summary ---
:1940 Author Organization [facility] Address [facility] [place] [address] Care Team Providers Name Role Phone Bobby Das MD Primary Care Provider Reason for Visit Reason Onset Date Comments Other 07/19/2011 Encounter Details Date Type Department Care Team Description 07/19/2011 Telephone Cardiology at [facility] Chet Nicole MD [facility] [place] [address] CARDIOLOGY DEPT. [phone] [place], [place] [address] (Wo rk) Social History Tobacco [...] Gastroenterology Negra Collins MD [facility] GASTROENTEROLOGY DEPT [place], [place] [address] (Wo rk) 09/05/2022 Appointment Cardiology Trinity Reid MD [facility] ER CARDIOLOGY [place], [place] [address] (Wo rk) 09/05/2022 Office Visit Cardiology Trinity Reid MD [facility] ER CARDIOLOGY [place], [place] [address]375 (Wo rk) documented as of this encounter Visit Diagnoses Not on filedocumented in this encounter Care Teams Communications Equipment Supervisor Relationship Specialty Start Date End Date Bobby Das MD PCP - General 10/02/[address] [place] [address] [place] [phone] documented as of this encounter
--- OUTSIDE RECORDS SUMMARY | 2022-07-10 09:37 | XMS_ITS | Encounter Summary ---
:1940 Author Organization [facility] [place] [address] Care Team Providers Name Role Phone Bobby Das MD Primary Care Provider Encounter Details Date Type Department Care Team Description 12/13/2016 Telephone Pain Management [place] [address] Social History Tobacco Use Types Packs/Day [...] Negra Collins MD [facility] DR GASTROENTEROLOGY DEPT [place], [place] [address] (Wo rk) 09/05/2022 Appointment Cardiology Trinity Reid MD [facility] CARDIOLOGY [place], [place] [address] (Wo rk) 09/05/2022 Office Visit Cardiology Trinity Reid MD [facility] CARDIOLOGY [place], [place] [address] (Wo rk) documented as of this encounter Visit Diagnoses Not on filedocumented in this encounter Care Teams Duplication Specialist Relationship Specialty Start Date End Date Bobby Das MD PCP - General 10/02/[address] [place] [address] [place] [phone] documented as of this encounter
--- OUTSIDE RECORDS SUMMARY | 2022-07-10 09:37 | XMS_ITS | Encounter Summary ---
:1940 Author Organization [facility] [place] [address] Care Team Providers Name Role Phone Bobby Das MD Primary Care Provider Encounter Details Date Type Department Care Team Description 12/16/2016 [facility] [place] [address] Social History Tobacco Use Types Packs/Day [...] MD [facility] GASTROENTEROLOGY DEPT [place], [place] [address] (Wo rk) 09/05/2022 Appointment Cardiology Trinity Reid MD [facility] CARDIOLOGY [place], [place] [address] (Wo rk) 09/05/2022 Office Visit Cardiology Trinity Reid MD [facility] CARDIOLOGY [place], [place] [address]375 (Wo rk) documented as of this encounter Visit Diagnoses Not on filedocumented in this encounter Care Teams Educational Programming Director Relationship Specialty Start Date End Date Bobby Das MD PCP - General 10/02/[address] [place] [address] [place] [phone] documented as of this encounter
--- OUTSIDE RECORDS SUMMARY | 2022-07-10 09:37 | XMS_ITS | Encounter Summary ---
:1940 Author Organization [place] [address] Care Team Providers Name Role Phone Bobby Das MD Primary Care Provider Encounter Details Date Type Department Care Team Description 09/22/2020 Telephone Pain and Spine Leon reid at [facility] [place] [address] Social History Tobacco Use Types Packs/Day [...] MD [facility] GASTROENTEROLOGY DEPT [place], [place] [address] (Wo rk) 09/05/2022 Appointment Cardiology Trinity Reid MD [facility] ER CARDIOLOGY [place], [place] [address] (Wo rk) 09/05/2022 Office Visit Cardiology Trinity Reid MD [facility] ER CARDIOLOGY [place], [place] [address] (Wo rk) documented as of this encounter Visit Diagnoses Not on filedocumented in this encounter Care Teams Dental Technologist Relationship Specialty Start Date End Date Bobby Das MD PCP - General 10/02/[address] [place] [address] [place] [phone] documented as of this encounter
--- OUTSIDE RECORDS SUMMARY | 2022-07-10 09:37 | XMS_ITS | Encounter Summary ---
:1940 Author Organization [facility] [place] [address] Care Team Providers Name Role Phone Bobby Das MD Primary Care Provider Reason for Visit Reason Comments Basal Cell Carcinoma Encounter Details Date Type Department Care Team Description 08/24/2015 Procedure visit Dermatology at [facility] Leo Solo BCC (basal cell Road MD Delores carcinoma of skin) [address] [facility] [address] [facility] [phone] [address] [address] Social History Tobacco Use Types Packs/Day Years [...] when the wound is well cared for. Pana drainage or slight yellow film on your [...] the hospital number and ask for the Social Security Assessor chronograph operator. Wound Care for Sutured Wounds You should [...] any questions, please call our clinic at [phone]. After 5PM and on weekends, please call the hospital number and ask for the Social Security Assessor chronograph operator. documented in this encounter Progress Notes Leo Solo MD - 08/24/2015 3:25 PM EDT Operative Report Patient name: Koko Zamora : 1940 Date: 08/24/2015 Staff Surgeon: Leo Solo MD, PhD Fur Tailor I: Cassy Jacobson, Yolanda Verdin, Etta Burciaga, Gloria Culver MD Archaeology Professor: Kourtney Cabrera Pre-operative diagnosis: Basal cell carcinoma Post-operative diagnosis: Basal cell carcinoma Location: Right holiness Procedure: Mohs micrographic surgery Indication for Mohs micrographic surgery: Critical anatomic location Stages: 2 Final defect size: 3.6 x 2.0 cm Stage I The nature and purpose of the procedure, associated risks, possible consequences and complications,and alternative forms of treatment were explained in detail. Informed consent and permission to takephotographs were obtained. The site was confirmed with the patient/authorized tax compliance representative/referring physician and a pre-operative time-out was [...] 08/24/2015 Staff Surgeon: Leo Solo MD, PhD Fur Tailor I: Yolanda Rivera, Estefania Welch Clinical Diagnosis: 3.6 x 2.0 cm surgical defect secondary to Mohs microscopically controlled excision of basal cell carcinoma Location: Right holiness Procedure: Transposition flap repair Due to the [...] [facility] GASTROENTEROLOGY DEPT [place], [place] 0375 ([facility]) 09/05/2022 Appointment Cardiology Trinity Reid MD [facility] CARDIOLOGY [place], [place] 0375 ([facility]) 09/05/2022 Office Visit Cardiology Trinity Reid MD [facility] CARDIOLOGY [place], [place] 0[address] ([facility]) documented as of this encounter Visit Diagnoses Diagnosis BCC (basal cell carcinoma of skin) Basal cell carcinoma of skin, site unspe cified documented in this encounter Care Teams It Account Manager Relationship Specialty Start Date End Date Bobby Das MD PCP - General 10/02/[address] [place] [address] [place] [phone] documented as of this encounter
--- OUTSIDE RECORDS SUMMARY | 2022-07-10 09:37 | XMS_ITS | Encounter Summary ---
:1940 Author Organization [place] [address] Care Team Providers Name Role Phone Bobby Das MD Primary Care Provider Reason for Visit Reason Comments Suture / Staple Removal Encounter Details Date Type Department Care Team Description 08/31/2015 Clinical Support Dermatology at [place] Visit for suture Heat Nicol Estrella MD removal [address] [facility] [address] [facility] [phone] RD-DERMATOLOGY [place] [address] Social History Tobacco Use Types Packs/Day Years Used Date Current Some Day Smoker 1 50 Smokeless Tobacco: Never Used Sex Assigned at Date Recorded Not on file documented as of this encounter Progress Notes Jeni Franco LPN - 08/31/2015 2:47 PM EDT HPI: Patient is a 74 y.o. male with history of basal cell carcinoma, right zoroastrianism, s/p Mohs repairedby transposition flap repair who is presenting for suture removal. Denies complications. Exam: General: No acute distress Skin: Limited examination of right zoroastrianism shows a well-healed flap. There is no erythema, dehiscence, ecchymosis, or drainage. Assessment and Plan 1. Basal cell carcinoma, right zoroastrianism, s/p Mohs repaired by transposition flap repair [...] MD [facility] GASTROENTEROLOGY DEPT [place], [place] 0[address] (Wo rk) 09/05/2022 Appointment Cardiology Trinity Reid MD [facility] CARDIOLOGY [place], [place] [address]375 (Wo rk) 09/05/2022 Office Visit Cardiology Trinity Reid MD [facility] CARDIOLOGY [place], [place] 0375 (Wo rk) documented as of this encounter Visit Diagnoses Diagnosis Visit for suture removal Encounter for removal of sutures documented in this encounter Care Teams Digital Media Specialist Relationship Specialty Start Date End Date Bobby Das MD PCP - General 10/02/[address] [place] [address] [place] [phone] documented as of this encounter
--- OUTSIDE RECORDS SUMMARY | 2022-07-10 09:37 | XMS_ITS | Encounter Summary ---
:1940 Author Organization [facility] [place] [address] Care Team Providers Name Role Phone Bobby Das MD Primary Care Provider Reason for Visit Reason Comments Basal Cell Carcinoma Consultation (Routine) - Closed Specialty Diagnoses / Procedures Referred By Contact Refer red To Contact Dermatology Diagnoses REQUESTING MOHS PROCEDURE RIGHT EYEBROW FOR LESION REMOVED BUT ADDITIONAL TISSUE REMAINS Bobby Das MD Vidal, Nahid Y, MD [address] [place] [address] [place] [address] [place] [address] Fax: Referral ID Status Reason Start Date Expiration Date Visits V isits Requested Authorized [id number] Closed Consult, 06/24/2018 06/24/2019 1 1 [facility] Encounter Details Date Type Department Care Team Description 09/23/2018 Procedure visit Dermatology at Alvaro Romano, Basal cell carcinoma Nicol CARCAMO (BCC) of eyebrow [address] [facility] [address] [place] [address] [phone] Social History Tobacco Use Types Packs/Day Years [...] Llanos MD. Your wound(s) was repaired by anus-zj-[id number] stitches called a primary repair. You do [...] until your sutures are removed. 5. Some sharepoint specialist may need to be delayed or delegated [...] as often as is recommended by your cylinder die machine operator, for new skin cancers. This is once [...] it. If after hours, please call the dairy powder mixer operator or [phone] and ask for the cylinder die machine operator on-call. If you have any non-urgent questions or concerns, please feel free to call my office or contact me through our patient portal, [facility], at [email or web address] How to contact us during business hours Dermatology at [facility] Road: Mohs scheduling or Mohs follow-up appointments: [phone] documented in this encounter Progress Notes Alvaro [...] Who lives with patient (i.e. spouse, children, snf/custodial)? Spouse Relevant travel history or future plans: [...] follow up with his or her referring cylinder die machine operator or other skin provider. Summary of Procedure(s): [...] Date: 09/23/2018 Staff Surgeon: Alvaro Llanos MD Nursing/Junior Designer(s): Assistants: Cassy Jacobson LPN, Jolene Pretty RN, Yolanda Fraser LPN, Savanah Licea CMA Flight Controls Engineer (s): Cristina Cisneros Amanda Isenor Pre-operative diagnosis: [...] The site was confirmed with the patient/authorized wholesale representative/referring physician and/or a photograph form time [...] Right eyebrow Indication: repair of wound for jain of function/anatomy Final Defect size: 1.5 x [...] Collins MD [facility] [place] [address] (Wo rk) 09/05/2022 Appointment Cardiology Trinity Reid MD [facility] ER CARDIOLOGY [place], [place] [address] (Wo rk) 09/05/2022 Office Visit Cardiology Trinity Reid MD [facility] CARDIOLOGY [place], [place] [address] (Wo rk) documented as of this encounter Visit Diagnoses Diagnosis Basal cell carcinoma (BCC) of eyebrow documented in this encounter Care Teams Customer Account Manager Relationship Specialty Start Date End Date Bobby Das MD PCP - General 10/02/[address] [place] [address] [place] [address] documented as of this encounter
--- OUTSIDE RECORDS SUMMARY | 2022-07-10 09:37 | XMS_ITS | Encounter Summary ---
:1940 Author Organization [facility] [place] [address] Care Team Providers Name Role Phone Bobby Das MD Primary Care Provider Encounter Details Date Type Department Care Team Description 09/18/[address] [facility] Yolanda Fraser RN [address] [place] [address] Social History Tobacco Use Types Packs/Day [...] Who lives with patient (i.e. spouse, children, long term/senior living)? Spouse Relevant travel history or future plans: [...] [facility] GASTROENTEROLOGY DEPT [place], [place] [address] (Wo rk) 09/05/2022 Appointment Cardiology Trinity Reid MD [facility] CARDIOLOGY [place], [place] [address] (Wo rk) 09/05/2022 Office Visit Cardiology Trinity Reid MD [facility] CARDIOLOGY [place], [place] [address] (Wo rk) documented as of this encounter Visit Diagnoses Not on filedocumented in this encounter Care Teams Candy Vendor Relationship Specialty Start Date End Date Bobby Das MD PCP - General 10/02/[address] [place] [address] [place] [phone] documented as of this encounter
--- OUTSIDE RECORDS SUMMARY | 2022-07-10 09:37 | XMS_ITS | Encounter Summary ---
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, sequela Closed compression fracture of L1 lumbar vertebra with delayed healing, subsequent encounter Malignant neoplasm of prostate Zbigniew Thompson PA [facility] Interventionl Rad Procedures IR Vertebroplasty Lumbar Multiple Levels IR Vertebral Augmentation Lumbar Single Level [facility] [place] [address] [place] [address] Fax: Referral ID Status Reason Start Date Expiration Date Visits V isits Requested Authorized [id number] Closed Specialty 07/13/2019 07/12/2020 1 1 Service Requested iagnostic Test (Routine) - Closed Specialty Diagnoses / Procedures Referred By Contact Refer red To Contact Radiology Diagnoses Closed compression fracture of L1 lumbar vertebra with delayed healing, subsequent encounter Malignant neoplasm of prostate Zbigniew Thompson PA [facility] Interventionl Rad [place] [address] [place] [address] Fax: Referral ID Status Reason Start Date Expiration Date Visits V isits Requested Authorized [id number] Closed Specialty 07/13/2019 07/12/2020 1 1 Service Requested Reason for Visit Diagnostic Test (Routine) - Closed Specialty Diagnoses / Procedures Referred By Contact Refer red To Contact Radiology Diagnoses 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, sequela Closed compression fracture of L1 lumbar vertebra with delayed healing, subsequent encounter Malignant neoplasm of prostate Zbigniew Thompson, PA [facility] Interventionl Rad Procedures IR Vertebroplasty Lumbar Multiple Levels IR Vertebral Augmentation Lumbar Single Level [facility] [place] [address] [place] [address] Fax: Referral ID Status Reason Start Date Expiration Date Visits V isits Requested Authorized [id number] Closed Specialty 07/13/2019 07/12/2020 1 1 Service Requested Encounter Details Date Type Department Care Team Description 07/20/2019 Hospital Encounter Radiology at [facility] Elmer Loya, Closed compression fracture of L1 lumbar vertebra with delayed healing, subsequent encounter; [facility] Malignant neoplasm of prostate; Drive [facility] Age-related osteoporosis wit h current pathological fracture of vertebra, sequela [place], [place] CENTER [address] SP[facility] [phone] [place] [address] Social History Tobacco Use Types Packs/Day Years [...] Martínez RN - 07/20/2019 10:06 AM EDT [facility] Discharge Instructions for Vertebroplasty Your [...] is during regular office hours, please call [phone]. If it is after regular office hours, oron weekends or holidays, please call [phone] and ask to speak to the Cash Register Repairer on callfor Interventional Radiology. XXX You have [...] of : 1940 AGE: 78 y.o. Address: [address] [place] [address] [place] [phone] (home) Mobile: No relevant phone numbers on file. Referring Provider: Zbigniew Thompson REASON FOR VISIT: Order Questions Answers Where will study be performed? [facility] Radiology [120] Specify location Lumbar [...] [facility] GASTR[facility]OLOG[facility] DEPT [place], [place] [address] (Wo rk) 09/05/2022 Appointment Cardiology Trinity Reid MD [facility] CARDIOLOGY [place], [place] [address] (Wo rk) 09/05/2022 Office Visit Cardiology Trinity Reid MD [facility] CARDIOLOGY [place], [place] [address] (Wo rk) documented as of [...] made and a 13g a introducer needle (Broadersheet) was advanced through the right pedicle and [...] made an d a 13ga introducer needle (Broadersheet) was advanced through the left pedicle and [...] signed by: Bobby Sullivan MD, [facility] ([phone]), at 07/20/2019 1:20 PM Procedure Note Bobby [...] made and a 13g a introducer needle (Broadersheet) was advanced through the right pedicle and [...] made an d a 13ga introducer needle (Broadersheet) was advanced through the left pedicle and [...] For questions regarding this report, please contact [facility] number below. Elmer Loya MD IMG IR [...] made and a 13g a introducer needle (Broadersheet) was advanced through the right pedicle and [...] made an d a 13ga introducer needle (Broadersheet) was advanced through the left pedicle and [...] signed by: Bobby Sullivan MD, [facility] ([phone]), at 07/20/2019 1:20 PM Procedure Note Bobby [...] made and a 13g a introducer needle (Broadersheet) was advanced through the right pedicle and [...] made an d a 13ga introducer needle (Broadersheet) was advanced through the left pedicle and [...] signed by: Bobby Sullivan MD, [facility] ([phone]), at 07/20/2019 1:20 PM Elmer Loya MD IMG IR ORDERABLES Surgical Pathology Report (07/20/2019 10:45 AM EDT) Component Value Ref Test Analysis Performed At [facility] Method Time Signature Surgical [id number] ? [facility] The signing pathologist has (i) [...] Spence MD Verified: ??07/22/2019 ?Pathologist Performed at: ??-[facility] Dept. of Pathology, [place], [place] DISCUSSION Deeper levels into the biopsy [...] Organization Address City/State/Z[place] [address] Specimen to Pathology (07/20/2019 8:41 AM EDT) Specimen Anatomical Collection Method Collection Time Receive d Time (Source) Location / / Volume Laterality AP Specimen 07/20/2019 8:41 AM 9 8:41 EDT AM EDT Narrative [facility] LABORAT ORY - 07/20/2019 8:41 AM EDT Specimen requisition ordered. ??Separate Pathology report to follow Elmer Loya MD PATHOLOGY/CYTOLOGY ORDERABLE S Performing Organization Address City/State/ZIP [place] [address] documented in this encounter [...] mg documented in this encounter Care Teams Statistics Manager Relationship Specialty Start Date End Date Bobby Das MD PCP - General 10/02/[address] [place] [address] [place] [phone] documented as of this encounter
--- OUTSIDE RECORDS SUMMARY | 2022-07-10 09:37 | XMS_ITS | Encounter Summary ---
:1940 Author Organization [facility] [place] [address] Care Team Providers Name Role Phone Bobby Das MD Primary Care Provider Reason for Visit Reason Comments Skin Check Encounter Details Date Type Department Care Team Description 03/29/2014 Office Visit Dermatology at Cy Knight, Kyle c ell carcinoma (Primary Dx); Nba CARCAMO Verruca vulgaris; [address] [place] (actinic keratosis) [facility] B DERMATOLOGY [place], [place] [address] [phone] Social History Tobacco Use Types Packs/Day Years [...] sun over the years. He lives in [place], [place]. Physical examination reveals a pleasant, 73-year-old gentleman who has a pearly, 1-cm papule on the right lateral canthus, site A; and a pearly papule about 8 mm in diameter, site C, on the right catholic at the scalp line. At the central [...] BCCAs, right lateral canthus and right lateral catholic, sites A and C, respectively. a. After [...] 08/08/2022 Office Visit Gastroenterology Negra Collins MD [facility] GASTROENTEROLOGY DEPT [place], [place] [address] (Wo rk) 09/05/2022 Appointment Cardiology Trinity Reid MD [facility] CARDIOLOGY [place], [place] [address] (Wo rk) 09/05/2022 Office Visit Cardiology Trinity Reid MD [facility] CARDIOLOGY [place], [place] [address] (Wo rk) documented as of this encounter Visit Diagnoses Diagnosis Basal cell carcinoma - Primary Basal cell carcinoma of skin, site unspe cified Verruca vulgaris Viral warts, unspecified [place] (actinic keratosis) Actinic keratosis documented in this encounter Care Teams Floor Coverer Apprentice Relationship Specialty Start Date End Date Bobby Das MD PCP - General 10/02/[address] [place] [address] [place] [address] documented as of this encounter
--- OUTSIDE RECORDS SUMMARY | 2022-07-10 09:37 | XMS_ITS | Encounter Summary ---
:1940 [place] [address] Care Team Providers Name Role Phone Bobby Das MD Primary Care Provider Encounter Details Date Type Department Care Team Description 07/13/2019 Orders Only Radiology Alan Brink Gastrointestinal [facility] MD Rosa hemorrhage, unspecified [facility] [address] hemorrhage type (Primary [id number] RADIOLOGY DEPT Dx) [phone] [place], [place] [address] Social History Tobacco Use Types [...] file Gets together: Not on file Attends episcopal service: Not on file Active member of [...] MD [facility] GASTROENTEROLOGY DEPT [place], [place] [address] (Wo rk) 09/05/2022 Appointment Cardiology Trinity Reid MD [facility] CARDIOLOGY [place], [place] [address] (Wo rk) 09/05/2022 Office Visit Cardiology Trinity Reid MD [facility] CARDIOLOGY [place], [place] [address] (Wo rk) documented as of this encounter Results Prothrombin Time (07/20/2019 8:18 AM EDT) P athologist Signature PT 11.3 9.4 - 12.5 [facility]R 1.0 [facility] [...] Organization Address City/State/[place] [address] (ABNORMAL) Hemogram (07/20/2019 8:18 AM EDT) Analysis Performed At Patho logist Time Signature WBC 6.0 4.0 - 9.5 [facility] x10(3)/[facility] LABORATORY RBC 4.50 (L) 4.58 - [facility] 5.54 [facility] x10(6)/[facility] LABORATORY Hemoglobin 14.8 13.7 - [facility] 16.5 gm/dL [facility] LABORATORY Hematocrit 43.9 40.5 - [facility] 48.5 % [facility] LABORATORY MCV 97.6 (H) 82.9 - [facility] 93.1 fL [facility] LABORATORY MCH 32.9 (H) 27.5 - [facility] 32.1 pg [facility] LABORATORY MCHC 33.7 32.0 - [facility] 35.7 gm/dL [facility] LABORATORY Platelets 164 145 - 357 [facility] x10(3)/[facility] LABORATORY RDWSD 49.3 (H) 36.0 - [facility] 45.0 [facility] LABORATORY RDWCV 13.6 11.4 - [facility] 13.8 % [facility] LABORATORY MPV 10.0 7.6 - 12.9 [facility] LABORATORY nRBC % Auto 0.0 % [facility] LABORATORY nRBC Abs Auto 0.000 0.000 - [facility] 0.000 [facility] x10(3)/[facility] LABORATORY Specimen Anatomical Collection Method Collection Time Receive d Time (Source) Location / / Volume Laterality Blood specimen 07/20/2019 8:18 AM 019 8:21 (specimen) EDT AM EDT Resulting Agency Comment Spec In Lab Bobby Marshall MD HEMATOLOGY ORDERABLES Performing Organization Address City/State/[place] [address] documented in this encounter Visit Diagnoses Diagnosis Gastrointestinal hemorrhage, unspecified gastrointestinal hemorrhage type - Primary documented in this encounter Care Teams Oil Furnace Installer Relationship Specialty Start Date End Date Bobby Das MD PCP - General 10/02/[address] [place] [address] [place] [address] documented as of this encounter
--- OUTSIDE RECORDS SUMMARY | 2022-07-10 09:37 | XMS_ITS | Encounter Summary ---
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 Chano Rebolledo MD [facility] Thoracic Surg [address] [place] [address] [place] [address] [place] [address] Phone: Fax: Referral ID Status Reason Start Date Expiration Date Visits V isits Requested Authorized [id number] Denied Consult, 12/18/2016 12/18/2017 1 0 Test & Treat Encounter Details Date Type Department Care Team Description 12/18/2016 Telephone Pain Management at Chano Freitas MD [facility] [place] [address] PAIN CLINIC [phone] [place], [place] [address] (Wo rk) Social History Tobacco [...] a heme/oncology consultation with [facility] for the patient in the meantime. documented in this encounter Plan of Treatment Upcoming Encounters Date Type Specialty Care Team Description 08/08/2022 Office Visit Gastroenterology Negra Collins MD [facility] GASTROENTEROLOGY DEPT [place], [place] [address] (Wo rk) 09/05/2022 Appointment Cardiology Trinity Reid MD [facility] CARDIOLOGY [place], [place] [address] (Wo rk) 09/05/2022 Office Visit Cardiology Trinity Reid MD [facility] CARDIOLOGY [place], [place] 0375 (Wo rk) Scheduled Referrals Name Type Priority Associated Diagnoses Order S chedule Referral to Outpatient Referral Routine Neoplasm of Ordered: Hematology and uncertain behavior 017 Oncology of respiratory organ documented as of this encounter Visit Diagnoses Diagnosis 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
--- OUTSIDE RECORDS SUMMARY | 2022-07-10 09:37 | XMS_ITS | Encounter Summary ---
:1940 Author Organization [facility] [place] [address] Care Team Providers Name Role Phone Bobby Das MD Primary Care Provider Reason for Referral Diagnostic Test (Routine) - Closed Specialty Diagnoses / Procedures Referred By Contact Refer red To Contact Radiology Diagnoses Compression fracture of T9 vertebra, initial encounter Alphonso Esquivel DO [facility] Interventionl Rad Procedures IR Vertebroplasty Thoracic [facility] [place] [address] [place] [address] Referral ID Status Reason Start Date Expiration Date Visits V isits Requested Authorized [id number] Closed Specialty 10/13/2020 04/13/2022 1 1 Service Requested Reason for Visit Diagnostic Test (Routine) - Closed Specialty Diagnoses / Procedures Referred By Contact Refer red To Contact Radiology Diagnoses Compression fracture of T9 vertebra, initial encounter Alphonso Esquivel DO [facility] Interventionl Rad Procedures IR Vertebroplasty Thoracic [facility] [place] [address] [place] [address] Referral ID Status Reason Start Date Expiration Date Visits V isits Requested Authorized [id number] Closed Specialty 10/13/2020 04/13/2022 1 1 Service Requested Encounter Details Date Type Department Care Team Description 10/25/2020 Hospital Encounter Radiology at [facility] Esquivel, Alphonso R, Compression fracture [facility] DO of T9 vertebra, Drive [facility] initial encounter [place], [place] CENTER [address] DIAGNOSTIC [phone] [place] [address] Social History Tobacco Use Types Packs/Day Years [...] Vargas RN - 10/25/2020 9:13 AM EST [facility] Discharge Instructions for Vertebroplasty Your vertebroplasty [...] is during regular office hours, please call [phone]. If it is after regular office hours, oron weekends or holidays, please call [phone] and ask to speak to the Procedures Nurse on callfor Interventional Radiology. XXX You have [...] of : 1940 AGE: 80 y.o. Address: [address] [place] [phone] (home) Mobile: No relevant phone numbers on file. Referring Provider: Alphonso Esquivel REASON FOR VISIT: Order Questions Answers Where will study be performed? [facility] Radiology [120] Is the patient on [...] Care Team Description 08/08/2022 Office Visit Gastroenterology Ngera Collins MD [facility] GASTROENTEROLOGY DEPT [place], [place] [address] (Wo rk) 09/05/2022 Appointment Cardiology Trinity Reid MD [facility] CARDIOLOGY [place], [place] [address] (Wo rk) 09/05/2022 Office Visit Cardiology Trinity Reid MD [facility] CARDIOLOGY [place], [place] [address] (Wo rk) documented as of [...] made and a 13g a introducer needle ([employer]) was advanced through the right pedicle and t o the ??T9 vertebral body during an intermittent fluoroscopic guidance. The [employer] biopsy cannula was advanced through the introducer [...] was made and a 13ga introducer needle (SideStripe) was advanced through the left pedicle and [...] the interservice administration of fentanyl and Versed [facility] continuous monitoring of blood pressure, oxygenation and [...] made and a 13g a introducer needle ([employer]) was advanced through the right pedicle and t o the T9 vertebral body during an intermittent fluoroscopic guidance. The [place] biopsy cannula was advanced through the introducer [...] was made and a 13ga introducer needle (SideStripe) was advanced through the left pedicle and [...] Ref Test Analysis Performed At [facility] Method Time Signature Surgical [id number] ? Location: [address] [place] [address] Pathology ALIQUIPPA Report The signing pathologist has (i) examined [...] Bone & Soft Tissue Pathologist Performed at: ??-[facility] Dept. of Pathology, [place], [place] DISCUSSION I see no neoplastic process [...] DO PATHOLOGY/CYTOLOGY ORDERABLE S Performing Organization Address City/[facility]/[place] [address] Specimen to Pathology (10/25/2020 8:26 AM EST) Specimen Anatomical Collection Method Collection Time Receive d Time (Source) Location / / Volume Laterality AP Specimen 10/25/2020 8:26 AM 0 8:26 EST AM EST Narrative [facility] LABORAT ORY - 10/25/2020 8:26 AM EST Specimen requisition ordered. ??Separate Pathology report to follow Alphonso Esquivel DO PATHOLOGY/CYTOLOGY ORDERABLE S Performing Organization Address City/[facility] Code Phon e Number [address] documented in this encounter [...] Procedure) documented in this encounter Care Teams Green Prize Packer Relationship Specialty Start Date End Date Bobby Das MD PCP - General 10/02/[address] [place] [address] [place] [address] documented as of this encounter
--- OUTSIDE RECORDS SUMMARY | 2022-07-10 09:37 | XMS_ITS | Encounter Summary ---
:1940 Author Organization [facility] [place] [address] Care Team Providers Name Role Phone Bobby Das MD Primary Care Provider Encounter Details Date Type Department Care Team Description 06/26/2018 Ancillary Procedure Radiology Library at Bobby Almaguer MD [facility] [address] [place] [id number] (Wo rk) Social History Tobacco Use Types Packs/Day Years Used Date Current Some Day Smoker 1 50 Smokeless Tobacco: Never Used Sex Assigned at Date Recorded Not on file documented as of this encounter Plan of Treatment Upcoming Encounters Date Type Specialty Care Team Description 08/08/2022 Office Visit Gastroenterology Negra Collins MD [facility] DR GASTROENTEROLOGY DEPT [place], [place] [address] (Wo rk) 09/05/2022 Appointment Cardiology Trinity Reid MD [facility] CARDIOLOGY [place], [place] [address] (Wo rk) 09/05/2022 Office Visit Cardiology Trinity Reid MD [facility] CARDIOLOGY [place], [place] [address] (Wo rk) documented as [...] Organization Address City/State/ZIP Code Phon e Number [place], [place] documented in this encounter Visit Diagnoses Not on filedocumented in this encounter Care Teams Shader And Toner Relationship Specialty Start Date End Date Bobby Das MD PCP - General 10/02/[address] [place] [address] [place] [address] documented as of this encounter
--- OUTSIDE RECORDS SUMMARY | 2022-07-10 09:37 | XMS_ITS | Encounter Summary ---
:1940 Author Organization [facility] [place] [address] Care Team Providers Name Role Phone Bobby Das MD Primary Care Provider Encounter Details Date Type Department Care Team Description 08/06/2020 Ancillary Procedure Radiology at [facility] Amy Grimaldo [address] [place] [address] 10 [address] [phone] NEUROSURGERY-N Jovanny [place], [place] [address] Social History Tobacco Use Types [...] Collins MD [facility] GASTROENTEROLOGY DEPT [place], [place] [address] (Wo rk) 09/05/2022 Appointment Cardiology Trinity Reid MD [facility] CARDIOLOGY [place], [place] [address] (Wo rk) 09/05/2022 Office Visit Cardiology rTinity Reid MD [facility] CARDIOLOGY [place], [place] [address] (Wo rk) documented as of [...] Organization Address City/State/ZIP Code Phon e Number [place], [place] documented in this encounter Visit Diagnoses Not on filedocumented in this encounter Care Teams Electro Tech Relationship Specialty Start Date End Date Bobby Das MD PCP - General 10/02/[address] [place] [address] [place] [phone] documented as of this encounter
--- OUTSIDE RECORDS SUMMARY | 2022-07-10 09:37 | XMS_ITS | Encounter Summary ---
:1940 Author Organization [facility] [place] [address] Care Team Providers Name Role Phone Bobby Das MD Primary Care Provider Reason for Visit Reason Onset Date Comments Pre Procedure Call 08/01/2015 Encounter Details Date Type Department Care Team Description 08/01/2015 Telephone Dermatology at [facility] Cassy Jacobson, Pre Procedure Call [address] [place] [address] Social History Tobacco Use Types Packs/Day [...] Negra Collins MD [facility] DR GASTROENTEROLOGY DEPT [place], [place] [address] (Wo rk) 09/05/2022 Appointment Cardiology Trinity Reid MD [facility] CARDIOLOGY [place], [place] [address] (Wo rk) 09/05/2022 Office Visit Cardiology Trinity Reid MD [facility] ER CARDIOLOGY [place], [place] [address] (Wo rk) documented as of this encounter Visit Diagnoses Not on filedocumented in this encounter Care Teams Steel Barrel Reamer Relationship Specialty Start Date End Date Bobby Das MD PCP - General 10/02/[address] [place] [address] [place] [address] documented as of this encounter
--- OUTSIDE RECORDS SUMMARY | 2022-07-10 09:37 | XMS_ITS | Encounter Summary ---
:1940 Author Organization [facility] Address [facility] [place] [address] Care Team Providers Name Role Phone Bobby Das MD Primary Care Provider Reason for Visit - Closed Specialty Diagnoses / Procedures Referred By Contact Refer red To Contact Procedures Bobby Das MD Film Library- Storage Only MR Her[facility] [place] [address] Referral ID Status Reason Start Date Expiration Date Visits Requ ested Visits Authorized [id number] Closed 02/23/2021 02/23/2022 1 1 Encounter Details Date Type Department Care Team Description 03/16/2020 Ancillary Procedure Radiology Library at Bobby Almaguer MD [address] [phone] (Rebekah rojas) Social History Tobacco Use Types [...] Collins MD [facility] GASTROENTEROLOGY DEPT [place], [place] [address] (Wo rk) 09/05/2022 Appointment Cardiology Trinity Reid MD [facility] ER CARDIOLOGY [place], [place] [address] (Wo rk) 09/05/2022 Office Visit Cardiology Trinity Reid MD [facility] ER CARDIOLOGY [place], [place] [address] (Wo rk) documented as of [...] Organization Address City/State/ZIP Code Phon e Number [place], [place] documented in this encounter Visit Diagnoses Not on filedocumented in this encounter Care Teams Therapy Manager Relationship Specialty Start Date End Date Bobby Das MD PCP - General 10/02/[address] [place] [address] [place] [phone] documented as of this encounter
--- OUTSIDE RECORDS SUMMARY | 2022-07-10 09:37 | XMS_ITS | Encounter Summary ---
:1940 [place] [address] Care Team Providers Name Role Phone Bobby Das MD Primary Care Provider Encounter Details Date Type Department Care Team Description 02/27/2021 Notes Only Radiology Matt [place]ish[place] [address] DIAGNOSTIC RADIOLOGY [phone] [place] [phone] (Wo rk) Social History Tobacco Use Types [...] [facility] DR GASTROENTEROLOGY DEPT [place], [place] [address] (Wo rk) 09/05/2022 Appointment Cardiology Trinity Reid MD [facility] CARDIOLOGY [place], [place] [address] (Wo rk) 09/05/2022 Office Visit Cardiology Trinity Reid MD [facility] CARDIOLOGY [place], [place] [address] (Wo rk) documented as of this encounter Visit Diagnoses Not on filedocumented in this encounter Care Teams Branch Controller Relationship Specialty Start Date End Date Bobby Das MD PCP - General 10/02/[address] [place] [address] [place] [address] documented as of this encounter
--- OUTSIDE RECORDS SUMMARY | 2022-07-10 09:37 | XMS_ITS | Encounter Summary ---
:1940 Author [place] [address] Care Team Providers Name Role Phone Bobby Das MD Primary Care Provider Encounter Details Date Type Department Care Team Description 10/13/2020 Notes Only Radiology at [facility] Esquivel [facility] [place] [address] DIAGNOSTIC RADIOLOGY [phone] [place] [id number] (Wo rk) Social History Tobacco Use Types [...] Visit Gastroenterology Negra Collins MD [facility] GASTROENTEROLOGY DEPT [place], [place] [address] (Wo rk) 09/05/2022 Appointment Cardiology Triinty Reid MD [facility] CARDIOLOGY [place], [place] [address] (Wo rk) 09/05/2022 Office Visit Cardiology Trinity Reid MD [facility] CARDIOLOGY [place], [place] [address] (Wo rk) documented as of this encounter Visit Diagnoses Not on filedocumented in this encounter Care Teams Interchange Agent Relationship Specialty Start Date End Date Bobby Das MD PCP - General 10/02/[address] [place] [address] [place] [phone] documented as of this encounter
--- OUTSIDE RECORDS SUMMARY | 2022-07-10 09:37 | XMS_ITS | Encounter Summary ---
:1940 Author Organization [facility] [place] [address] Care Team Providers Name Role Phone Bobby Das MD Primary Care Provider Reason for Visit Reason Comments Basal Cell Carcinoma Encounter Details Date Type Department Care Team Description 08/08/2015 [facility] (basal cell Road MD carcinoma of skin) [address] [place] [address] [facility] [place], [place] [address] Social History Tobacco Use Types [...] Our facility does not offer a guest Easy [employer] network at this time. We also recommend [...] specified we require that you have a dumpcart driver, as surgery can be stressful and tiring. If you are being transported from a halfway or other similar facility, we request that someone stay with you during this appointment. We are located in the [facility] at [place], [place]. Please refer to the [facility] website for detailed driving directions ([email or web address]). When you arrive, please park in the upper parking lot. When you enter the building, go to the third floor, the unit receptionist area is located on the left [...] If this fails, contact our office at [phone] (after 5PM please call [phone] and ask for the Pre Kindergarten Teacher air conditioning equipment mechanic). Avoid bending over, heavy lifting (no greater [...] are taking. Our office phone number is [phone]. documented in this encounter Progress Notes Leo Solo MD - 08/08/2015 1:50 PM EDT [facility] SURGICAL CONSULT Chief Complaint: Basal cell carcinoma History of Present Illness: Referring Physician: Dr. Zheng, [facility] (07/03/15) Tumor type: BCC Location of Skin Cancer: Right jainism Duration of Presence: 1 year Previous Treatment: [...] acute distress. Skin: Limited examination of right jainism reveals a 5 mm erythematous papule. Assessment and Plan 1. BCC, right jainism Reviewed treament options including wide local excision, [...] Collins MD [facility] DR GASTROENTEROLOGY DEPT [place], [place] [address] (Wo rk) 09/05/2022 Appointment Cardiology Trinity Reid MD [facility] CARDIOLOGY [place], [place] [address] (Wo rk) 09/05/2022 Office Visit Cardiology Trinity Reid MD [facility] CARDIOLOGY [place], [place] [address] (Wo rk) documented as of this encounter Visit Diagnoses Diagnosis BCC (basal cell carcinoma of skin) Basal cell carcinoma of skin, site unspe cified documented in this encounter Care Teams Lead Relay Tester Relationship Specialty Start Date End Date Bobby Das MD PCP - General 10/02/[address] [place] [address] [place] [phone] documented as of this encounter
--- OUTSIDE RECORDS SUMMARY | 2022-07-10 09:37 | XMS_ITS | Encounter Summary ---
:1940 Author Organization [facility] [place] [address] Care Team Providers Name Role Phone Bobby Das MD Primary Care Provider Reason for Visit Reason Comments Follow-up Encounter Details Date Type Department Care Team Description 05/31/2014 [facility] History of basal cell Nba CARCAMO carcinoma (Primary [address] Dx) [facility] B DERMATOLOGY [place], [place] [address] [phone] Social History Tobacco Use Types Packs/Day Years Used Date Current Some Day Smoker 1 50 Smokeless Tobacco: Never Used Sex Assigned at Date Recorded Not on file documented as of this encounter Patient Instructions Patient InstructionsSupriya Louis LPN - 05/31/2014 1:34 PM EDT Images from the original note were not included. [facility] Actinic Keratosis: After Your Visit Your [...] more? Visit our health information library at [email or web address] You can also view health information on [employer], your personal patient account. Log in or sign up today. Enter L364 in the search box to learn more about Actinic Keratosis: After Your Visit. ?? [phone] [employer]. Care instructions adapted under license by [facility]. This care instruction is for use with your licensed healthcare professional. If you have questionsabout a medical condition or this instruction, always ask your healthcare professional. [employer] disclaims any warranty or liability for your use of this information. Content Version: 9.9.707679; Last Revised: December 22, 2012 documented in this encounter Progress Notes Hammer, Cy J, MD - 05/31/2014 2:08 PM EDT Problem: Follow up for repeat skin checkup. Shadi follows up after last being seen in March. At that time, I removed using shave C and D a BCCA from the right lateral canthus and a BCCA from the right lateral yarsani. I also treated a verruca vulgaris on [...] Collins MD [facility] GASTROENTEROLOGY DEPT [place], [place] [address] (Wo rk) 09/05/2022 Appointment Cardiology Trinity Reid MD [facility] [address] [place], [place] [address] (Wo rk) 09/05/2022 Office Visit Cardiology Trinity Reid MD [facility] [address] [place], [place] [address] (Rebekah rojas) documented as of this encounter Visit Diagnoses Diagnosis History of basal cell carcinoma - Primar y Personal history of other malignant neop lasm of skin documented in this encounter Care Teams Medical Translator Relationship Specialty Start Date End Date Bobby Das MD PCP - General 10/02/[address] [place] [address] [place] [address] documented as of this encounter
--- OUTSIDE RECORDS SUMMARY | 2022-07-10 09:37 | XMS_ITS | Encounter Summary ---
:1940 [place] [address] Care Team Providers Name Role Phone Bobby Das MD Primary Care Provider Encounter Details Date Type Department Care Team Description 08/25/2015 Telephone Dermatology at [facility] Gloria Ferrell MD [address] [facility] [place] [address] [facility] [phone] [place], [place] [address] (Wo rk) Social History Tobacco [...] MD [facility] DR GASTROENTEROLOGY DEPT [place], [place] [address] (Wo rk) 09/05/2022 Appointment Cardiology Trinity Reid MD [facility] CARDIOLOGY [place], [place] [address] (Wo rk) 09/05/2022 Office Visit Cardiology Trinity Reid MD [facility] CARDIOLOGY [place], [place] [address] (Wo rk) documented as of this encounter Visit Diagnoses Not on filedocumented in this encounter Care Teams Bridge Repairer Relationship Specialty Start Date End Date Bobby Das MD PCP - General 10/02/[address] [place] [address] [place] [phone] documented as of this encounter
--- OUTSIDE RECORDS SUMMARY | 2022-07-10 09:37 | XMS_ITS | Encounter Summary ---
:1940 Author Organization [facility] [place] [address] Care Team Providers Name Role Phone Bobby Das MD Primary Care Provider Encounter Details Date Type Department Care Team Description 09/06/2020 Ancillary Procedure [facility] Amy Grimaldo [address] [place] [address] 10 LITTLE JAY [phone] NEUROSURGERY-N Jovanny [place], [place] [address] Social History Tobacco Use Types [...] Visit Gastroenterology Negra Collins MD [facility] GASTROENTEROLOGY DEPT [place], [place] [address] (Wo rk) 09/05/2022 Appointment Cardiology Trinity Reid MD [facility] CARDIOLOGY [place], [place] [address] (Wo rk) 09/05/2022 Office Visit Cardiology Trinity Reid MD [facility] CARDIOLOGY [place], [place] [address] (Wo rk) documented as of [...] Organization Address City/State/ZIP Code Phon e Number [place], [place] documented in this encounter Visit Diagnoses Not on filedocumented in this encounter Care Teams Supervisor Receiving And Processing Relationship Specialty Start Date End Date Bobby Das MD PCP - General 10/02/[address] [place] [address] [place] [phone] documented as of this encounter
--- OUTSIDE RECORDS SUMMARY | 2022-07-10 09:37 | XMS_ITS | Encounter Summary ---
:1940 Author Organization [facility] [place] [address] Care Team Providers Name Role Phone Bobby Das MD Primary Care Provider Reason for Referral Diagnostic Test (Routine) - Specialty Diagnoses / Procedures Referred By Contact Refer ramila To Contact Radiology Diagnoses Chest pain, unspecified type Chronic abdominal pain Chano Rebolledo MD [facility] Rad Ct Scan Procedures CT Chest w Contrast CT Chest wo Contrast (Generic) [facility] [place] [address] [place] [address] Referral ID Status Reason Start Date Expiration Visits Visits Date Requested Authorized [id number] Specialty 12/13/2016 12/13/2017 1 1 Service Requested Consultation (Routine) - Closed Specialty Diagnoses / Procedures Referred By Contact Refer ramila To Contact Neurology Diagnoses Radiculopathy of cervical region Chano Rebolledo MD [facility] Neurology 3c [facility] [place] [address] [place] [address] Referral ID Status Reason Start Date Expiration Date Visits V isits Requested Authorized [id number] Closed Test Only 12/13/2016 12/13/2017 1 1 Diagnostic Test (Routine) - Closed Specialty Diagnoses / Procedures Referred By Contact Refer red To Contact Radiology Diagnoses Chest pain, unspecified type Chronic abdominal pain Chano Rebolledo MD [facility] Rad Ct Scan Procedures CT Abdomen & Pelvis w Contrast [facility] [place] [address] [place] [address] Referral ID Status Reason Start Date Expiration Date Visits V isits Requested Authorized [id number] Closed Specialty 12/13/2016 12/13/2017 1 1 Service Requested Reason for Visit Reason Comments Pain Management Neck Pain Bilateral Arm Pain burning across sternum and r ibs, both sides Consultation (Routine) - Closed Specialty Diagnoses / Procedures Referred By Contact Refer red To Contact Pain Management Diagnoses cervical radiculopathy Bobby Das MD [facility] [address] [place] [address] [address] [place], [place] [address] [address] [place] [address] Fax: Referral ID Status Reason Start Date Expiration Date Visits V isits Requested Authorized [id number] Closed Consult, 11/22/2016 11/22/2017 1 1 Test & Treat Encounter Details Date Type Department Care Team Description 12/13/2016 Office Visit Pain Management at [facility], Chest adrianna n, unspecified type; Jose Sullivan MD Chronic abdominal pain; [facility] Radiculop athy of cervical region [facility] [place] [address] [place] [address] Social History Tobacco Use Types [...] Rebolledo MD - 12/13/2016 1:00 PM EST [facility] [place] [address] Phone: PAIN MANAGEMENT NEW PATIENT / CONSULTATION NOTE DATE OF VISIT 12/13/2016 Patient Koko Zamora 1940 REFERRING PROVIDER Bobby Das MD [address] [place] [address] [place] [address] PRIMARY CARE PROVIDER Bobby Das MD CHIEF [...] Aspirin Other (See Comments) 06/28/2011 MEDICATIONS The [place] and [place] Prescription Monitoring Program were checked [...] restless FUNCTIONAL /SOCIAL Lives with: 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 Follow up: -Patient will be called after results are obtained. Koko J Zamora had the opportunity to ask questions and indicated that all questions were answered to his satisfaction. Thank you for this referral, Bobby Das MD [address] [place] [address]. Chano Rebolledo MD Leonel Orozco MD - [...] [facility] DR GASTROENTEROLOGY DEPT [place], [place] [address] (Wo rk) 09/05/2022 Appointment Cardiology Trinity Reid MD [facility] CARDIOLOGY [place], [place] [address] (Wo rk) 09/05/2022 Office Visit Cardiology Trinity Reid MD [facility] CARDIOLOGY [place], [place] [address] (Wo rk) Scheduled Referrals Name [...] site documented in this encounter Care Teams Brine Room Laborer Relationship Specialty Start Date End Date Bobby Das MD PCP - General 10/02/[address] [place] [address] [place] [phone] documented as of this encounter
--- OUTSIDE RECORDS SUMMARY | 2022-07-10 09:37 | XMS_ITS | Encounter Summary ---
:1940 Author Organization [facility] [place] [address] Care Team Providers Name Role Phone Bobby Das MD Primary Care Provider Reason for Referral Diagnostic Test (Routine) - Closed Specialty Diagnoses / Procedures Referred By Contact Refer red To Contact Radiology Diagnoses Compression fracture of T9 vertebra, initial encounter Alphonso Esquivel, DO [facility] Interventionl Rad Procedures IR Vertebroplasty Thoracic Single Level [facility] [place] [address] [place] [address] Referral ID Status Reason Start Date Expiration Date Visits V isits Requested Authorized [id number] Closed Specialty 10/13/2020 04/13/2022 1 1 Service Requested Encounter Details Date Type Department Care Team Description 10/13/2020 Orders Only Radiology at [facility] [place] Alphonso Esquivel, Compression fracture [facility] DO of T9 vertebra, Drive [facility] [place] [address] DIAGNOSTIC RADIOLOGY [place], [place] [address] Social History Tobacco Use Types [...] Negra Collins MD [facility] DR GASTROENTEROLOGY DEPT [place], [place] 0375 (Wo rk) 09/05/2022 Appointment Cardiology Trinity Reid MD [facility] CARDIOLOGY [place], [place] [address] (Wo rk) 09/05/2022 Office Visit Cardiology Trinity Reid MD [facility] CARDIOLOGY [place], [place] 0[address] (Wo rk) documented [...] made and a 13g a introducer needle ([employer]) was advanced through the right pedicle and t o the ??T9 vertebral body during an intermittent fluoroscopic guidance. The [employer] biopsy cannula was advanced through the introducer [...] was made and a 13ga introducer needle ([employer]) was advanced through the left pedicle and [...] below. ? Electronically signed by: Matt Valverde [facility] ([phone]), at 10/25/2020 11:02 AM Procedure Note Matt [...] made and a 13g a introducer needle ([employer]) was advanced through the right pedicle and t o the T9 vertebral body during an intermittent fluoroscopic guidance. The [employer] biopsy cannula was advanced through the introducer [...] was made and a 13ga introducer needle ([employer]) was advanced through the left pedicle and [...] number below. Electronically signed by: Matt Valverde [facility] ([phone]), at 10/25/2020 11:02 AM Alphonso Esquivel DO IMG IR ORDERABLES Prothrombin Time (10/25/2020 6:35 AM EST) athologist Signature PT 10.8 9.4 - 12.5 [facility] LABORATORY INR 1.0 [facility] LABORATORY Comment: [...] Organization Address City/State/[place] [address] Platelet count (10/25/2020 6:35 AM EST) athologist Signature Platelets 192 145 - 357 [facility] x10(3)/[facility] LABORATORY Plat Immature 2.6 0.0 - 7.4 [facility] % % [facility] LABORATORY Comment: Limitation of the Immature Platelet Frac tion (IPF)-May be less reliable when the platelet count is less than 04p852/u L due to statistical imprecision. The IPF [...] in a decreased state of production. References: [employer] The Clinical Value of the Immature Platelet Fraction (IPF) in Cell Recovery Document Number 10-1143 04/2011 [employer] The Role of the Imm ature [...] Organization Address City/State/[place] [address] documented in this encounter Visit Diagnoses Diagnosis Compression fracture of T9 vertebra, ini tial encounter Compression fracture of T9 vertebra, ini tial encounter documented in this encounter Care Teams Boiler Operator Helper Relationship Specialty Start Date End Date Bobby Das MD PCP - General 10/02/[address] [place] [address] [place] [address] documented as of this encounter
--- OUTSIDE RECORDS SUMMARY | 2022-07-10 09:37 | XMS_ITS | Encounter Summary ---
:1940 Author Organization [facility] Address [facility] [place] [address] Care Team Providers Name Role Phone Bobby Das MD Primary Care Provider Reason for Visit Reason Comments Shortness of Breath Encounter Details Date Type Department Care Team Description 12/24/2011 Office Visit [facility] Hosp Torrey Giang SOB (shortness of 189 Dest[address] Bradley Mendoza MD breath) (Primary Dx) [facility] [phone] CARDIOLOGY DEPT. [place], [place] [address] Social History Tobacco Use Types Packs/Day Years [...] Gastroenterology Negra Collins MD [facility] GASTROENTEROLOGY DEPT [place], [place] [address] (Wo rk) 09/05/2022 Appointment Cardiology Trinity Reid MD [facility] CARDIOLOGY [place], [place] [address] (Wo rk) 09/05/2022 Office Visit Cardiology Trinity Reid MD [facility] CARDIOLOGY [place], [place] 0[address] (Wo rk) documented as of this encounter Visit Diagnoses Diagnosis SOB (shortness of breath) - Primary Shortness of breath documented in this encounter Care Teams Provider Education Specialist Relationship Specialty Start Date End Date Bobby Das MD PCP - General 10/02/[address] [place] [address] [place] [phone] documented as of this encounter
--- OUTSIDE RECORDS SUMMARY | 2022-07-10 09:37 | XMS_ITS | Encounter Summary ---
:1940 Author Organization [facility] [place] [address] Care Team Providers Name Role Phone Bobby Das MD Primary Care Provider Encounter Details Date Type Department Care Team Description 07/25/2015 Hospital Encounter Laboratory Leo Solo, [facility] [place] [address]-DERMATOLOGY [place], [place] 0[address] (Wo rk) Social History Tobacco [...] [facility] GASTROENTEROLOGY DEPT [place], [place] 0375 (Wo rk) 09/05/2022 Appointment Cardiology Trinity Reid MD [facility] CARDIOLOGY [place], [place] 0375 (Wo rk) 09/05/2022 Office Visit Cardiology Trinity Reid MD [facility] CARDIOLOGY [place] 0375 (Wo rk) documented as of this encounter Procedures Procedure Name Priority Date/Time Associated Diagnosis Comme nts SURGICAL PATHOLOGY Routine 07/25/2015 9:51 AM Res ults for this REPORT EDT procedure are i n the results section. documented in this encounter Results Surgical Pathology Report (07/25/2015 9:51 AM EDT) Component Value Ref Test Analysis Performed At [facility] Method Time Signature Surgical The signing pathologist has (i) examined the relevant preparation(s) for the [facility] Pathology specimen(s) and (ii) rendered or confirmed the diagnosis(e s). [facility] Report Accession Number: [id number] . ?Surgic al Pathology DIAGNOSIS CONSULTATION CASE Outside slides labeled [id number], collection date 07/03/2015 . Skin, right druze, excision: ?- ??BASAL CELL CARCINOMA, INFILTRATIVE TYPE [...] CONSULTATION CASE A - 3 slides labeled [id number], collection date 07/03/2015. [id number] Report to: [facility] Surgical Pathology Department [facility], [address], 2nd Floor [address] [place], [place] ??[address] SPECIMEN PROCESSING [facility] ([facility]) pathology slide(s) are reviewed. ??Refer to Diagnosis and Specimen Submitted for specific case infor arpan. For the full text of the [facility] ([facility]) report(s) please refer to Non-DH Documentati on Pathology in the electronic health record (eDH). Specimen (Source) Anatomical Collection Method Collection Time Re ceived Time Location / / Volume Laterality 07/25/2015 9:51 AM EDT Leo Solo MD PATHOLOGY/CYTOLOGY ORDERABLE S Performing Organization Address City/State/Z[place] [address] [facility] documented in this encounter Visit Diagnoses Not on filedocumented in this encounter Care Teams Roller Inspector And Mender Relationship Specialty Start Date End Date Bobby Das MD PCP - General 10/02/[address] [place] [address] [place] [phone] documented as of this encounter
--- OUTSIDE RECORDS SUMMARY | 2022-07-10 09:37 | XMS_ITS | Encounter Summary ---
:1940 Author Organization [facility] [place] [address] Care Team Providers Name Role Phone Bobby Das MD Primary Care Provider Reason for Visit Reason Comments Shortness of Breath Encounter Details Date Type Department Care Team Description 09/17/2011 Office Visit [facility] Hosp Torrey Giang SOB (shortness of 189 Destin Bradley Mendoza MD breath) (Primary Dx) [facility] [address] CARDIOLOGY DEPT. [place] [id number] Social History Tobacco Use Types Packs/Day Years [...] MD [facility] GASTROENTEROLOGY DEPT [place], [place] 0[address] (Wo rk) 09/05/2022 Appointment Cardiology Trinity Reid MD [facility] CARDIOLOGY [place], [place] 0375 (Wo rk) 09/05/2022 Office Visit Cardiology Trinity Reid MD [facility] CARDIOLOGY [place], [place] 0375 (Wo rk) documented as of [...] breath documented in this encounter Care Teams Reimbursement Spec Relationship Specialty Start Date End Date Bobby Das MD PCP - General 10/02/[address] [place] [address] [place] [phone] documented as of this encounter
--- OUTSIDE RECORDS SUMMARY | 2022-07-10 09:37 | XMS_ITS | Encounter Summary ---
:1940 Author Organization [facility] Address [facility] [facility] [place] [address] Care Team Providers Name Role Phone Bobby Das MD Primary Care Provider Reason for Visit - Closed Specialty Diagnoses / Procedures Referred By Contact Refer red To Contact Procedures Bobby Das MD Film Library- Storage Only DX [address] [place] [phone] Referral ID Status Reason Start Date Expiration Date Visits Requ ested Visits Authorized [id number] Closed 04/13/2021 04/13/2022 1 1 Encounter Details Date Type Department Care Team Description 01/31/2021 Ancillary Procedure Radiology Library at Bobby Almaguer MD [address] [phone] (Rebekah rojas) Social History Tobacco Use Types [...] Negra Collins MD [facility] DR GASTROENTEROLOGY DEPT [place], [place] 0[address] (Wo rk) 09/05/2022 Appointment Cardiology Trinity Reid MD [facility] ER CARDIOLOGY [place] 0375 (Wo rk) 09/05/2022 Office Visit Cardiology Trinity Reid MD [facility] ER CARDIOLOGY [place] 0[address] (Wo rk) documented as of this [...] Organization Address City/State/ZIP Code Phon e Number [place], [place] documented in this encounter Visit Diagnoses Not on filedocumented in this encounter Care Teams Yarn Examiner Skeins Relationship Specialty Start Date End Date Bobby Das MD PCP - General 10/02/[address] [place] [address] [place] [phone] documented as of this encounter
--- OUTSIDE RECORDS SUMMARY | 2022-07-10 09:43 | XMS_ITS | Clinical Summary ---
:1940 Author Organization [facility] Address [address] [place] [address] Care Team Providers Name Role Phone Bobby [...] Problem Noted Date Malignant neoplasm of prostate ([facility]) 11/19/2017 Cancer Staging: Clinical stage from 11/19: Stage IIB (cT2a, cN0, cM0, PSA: 12.8, Grade Group: 2) - Signed by Delores Gutierrez III, MD on 11/19/2017 Medical History Medical History Date Comments Cancer ([facility]) (HCC) Hyperlipidemia Family History Medical History Relation [...] T ype Group Dates MEDICARE MEDICARE A/B [id number] 2007-Pre [address] edicare GL sent [address] [facility] [facility] [place] [address] [facility] [id number] 2021-Pre [address] Commercial GL [facility] sent [place], [place] [id number] COMPANY Koko Zamora Personal/Family Self 1940 [address] (Home) [place] [address] Koko Zamora Personal/Family Self 1940 [address] ([place] [address] Care Teams Food Assembler Kitchen Relationship Specialty Start Date End Date Bobby Das MD PCP - General 07/06/[address] [place] [place] [address],[address] [place] [phone]
--- OUTSIDE RECORDS SUMMARY | 2022-07-10 09:43 | XMS_ITS | Encounter Summary ---
:1940 Author Organization [facility] Address [address] [place] [address] Care Team Providers Name Role Phone Bobby Das MD Primary Care Provider Encounter Details Date Type Department Care Team Description 08/28/2020 Lab Requisition [facility] Outr Resulting Lab, Pathology & Laboratory Provider [facility] [address] [place], [place] [phone] Social History Tobacco Use Types Packs/Day Years [...] (08/28/2020 9:58 EDT) COVID-19 rt-PCR NEGATIVE Negative [facility] Result Comment: LABORATORY 2019-novel Coronavirus [...] Organization Address City/State/ZIP Code Phon e Number [employer] [facility] [place], [place] COVID-19 TESTING (08/28/2020 9:58 EDT) Pathologist [facility] [place] COVID-19 rt-PCR NEGATIVE Negative [facility] Result Comment: LABORATORY 2019-novel Coronavirus [...] Use Authorization. Performing Lab [facility] LABORATORY SERVICES Specimen Swab Performing Organization Address City/State/ZIP Code Phon e Number [facility] [address] [place] [address] SERVICES [facility] [place], [place] documented in this encounter Visit Diagnoses Not on filedocumented in this encounter Care Teams Fundraiser Relationship Specialty Start Date End Date Bobby Das MD PCP - General 07/06/[address] [place] [address] ,[address] [place] [address] documented as of this encounter
--- OUTSIDE RECORDS SUMMARY | 2022-07-10 09:43 | XMS_ITS | Encounter Summary ---
:1940 Author Organization [facility] Address [address] [place] [address] Care Team Providers Name Role Phone Bobby Das MD Primary Care Provider Reason for Visit Reason Onset Date Comments Prostate Cancer 06/03/2018 Encounter Details Date Type Department Care Team Description 06/03/2018 Telephone [facility] Aries Gutierrez Cancer Radiation Oncology - III, [address] [address] [address], [place] [address] (Wo rk) Social History Tobacco Use Types Packs/Day Years Used Date Current Every Day Smoker Smokeless Tobacco: Never Used Sex Assigned at Date Recorded Not on file documented as of this encounter Miscellaneous Notes Telephone Encounter - Delores Gutierrez III, MD - 06/03/2018 8798 EDT RADIATION ONCOLOGY I spoke with Mr. Zamora by phone today. He tells me he is unable to make it to [place] for follow-up visits with me as he [...] office if he will be in the [place] area as I would be happyto move my schedule as needed to see him for follow-up. I did strongly encourage him to continue follow-up with Dr. José and asked him to call them to arrange an appointment. He canceled his next scheduled follow-up appointment with me. Sj Gutierrez MD Radiation Oncology [phone] (office) [phone] (pager) This note has been prepared with voice recognition software. Please excuse cocoa mill operator errors. documented in this encounter Plan of Treatment Not on filedocumented as of this encounter Visit Diagnoses Not on filedocumented in this encounter Care Teams Senior Consultant Relationship Specialty Start Date End Date Bobby Das MD PCP - General 07/06/[address] [place] [address],[address] [place] [phone] documented as of this encounter
--- OUTSIDE RECORDS SUMMARY | 2022-07-10 09:43 | XMS_ITS | Encounter Summary ---
:1940 Author Organization [facility] Address [address] [place] [address] Care Team Providers Name Role Phone Bobby Das MD Primary Care Provider Encounter Details Date Type Department Care Team Description 10/03/2021 Lab Requisition [facility] Bobby Das Enc ounter for other Pathology & MD general examination Laboratory Medicine [address] [place] [address],[address] [facility] [address] [place], [place] [phone] [place] [phone] Social History Tobacco Use Types Packs/Day Years [...] 15:36 EST) Note to Patient The following [facility] MEDICAL pathology results have CENTER [...] material is identified. Attestation By the signature [facility] MEDICAL Electronica lly below, the [...] above diagnosis. Microscopic Sections consist of an [facility] MEDICAL Description excision of skin [...] deeper sections. Clinical History Firm lesion not [facility] MEDICAL healing; foreign body CENTER granuloma LABORATORY SERVICES Gross Description A. [facility] MEDICAL Received in formalin christina [...] SERVICES Toni Giordano 10/05/2021 8:15 Performing Lab [facility] HOSPITAL LAB [facility] SERVICES Scanned Images [facility]OR[facility]ORY SERVICES Specimen Tissue - Skin (tissue) specimen (specime n) Performing Organization Address City/State/ZIP Code Phon e Number [facility] [address] [place] [address] SERVICES documented in this encounter Visit Diagnoses Diagnosis Encounter for other general examination documented in this encounter Care Teams Page Technician Relationship Specialty Start Date End Date Bobby Das MD PCP - General 07/06/[address] [place] [address] ,[address] [place] [address] documented as of this encounter
--- OUTSIDE RECORDS SUMMARY | 2022-07-10 09:43 | XMS_ITS | Encounter Summary ---
:1940 Author Organization [facility] Address [address] [place] [address] Care Team Providers Name Role Phone Bobby Das MD Primary Care Provider Reason for Referral Laboratory Services (Routine) - Closed Specialty Diagnoses / Procedures Referred By Contact Refer red To Contact Diagnoses Malignant neoplasm of prostate ([facility]) ([facility]) Aries Gutierrez III, Procedures PSA TOTAL, DIAGNOSTIC MD [address] [place] [phone] Referral ID Status Reason Start Date Expiration Date Visits Requ ested Visits Authorized [id number] Closed 07/11/2019 1 1 Encounter Details Date Type Department Care Team Description 01/08/2019 Documentation Visit [facility] Aries Gutierrez Malignant neoplasm Radiation Oncology Felix EAST MD of prostate - [address] ([facility]) (Primary 111 [facility] Dx) [facility], [address] [place] [address] [address] Social History Tobacco Use Types [...] Visit Diagnoses Diagnosis Malignant neoplasm of prostate ([facility]) (HCC) - Primary Malignant neoplasm of prostate documented in this encounter Care Teams Retention Manager Relationship Specialty Start Date End Date Bobby Das MD PCP - General 07/06/[address] [place] [address],[address] [place] [phone] documented as of this encounter
--- OUTSIDE RECORDS SUMMARY | 2022-07-10 09:43 | XMS_ITS | Encounter Summary ---
:1940 Author Organization [facility] Address [address] [place] [address] Care Team Providers Name Role Phone Bobby Das MD Primary Care Provider Reason for Visit Reason Comments Prostate Cancer Follow up Encounter Details Date Type Department Care Team Description 07/16/2019 Office Visit [facility] Aries Gutierrez neoplasm of Radiation Oncology - Felix EAST MD prostate ([facility]) Main [address] (Primary Dx) [address] [place] [id number] [place] [address], Sarah Ann [phone] [facility] [address] [place] [address] (Wo rk) Social History Tobacco [...] DATE OF SERVICE: 07/16/2019 DIAGNOSIS AND STAGE: [id number], PSA 12.8 Winifred score 3+4 = 7 [...] this point. He is being evaluated at [facility] next week for possible tuboplasty. With [...] prepared with voice recognition software. Please excuse x ray inspector errors. documented in this encounter Plan of [...] ORAL) added in this encounter Care Teams Cloth Winder Machine Operator Relationship Specialty Start Date End Date Bobby Das MD PCP - General 07/06/[address] [place] [address],[address] [place] [address] documented as of this encounter
--- OUTSIDE RECORDS SUMMARY | 2022-07-10 09:43 | XMS_ITS | Encounter Summary ---
:1940 Author Organization [facility] Address [address] [place] [address] Care Team Providers Name Role Phone Bobby Das MD Primary Care Provider Encounter Details Date Type Department Care Team Description 07/16/2019 Hospital Encounter [facility] Gutierrez [facility] III, MD [phone] [place] [address] [facility] Level [address] [place] [address] (Wo rk) Social History Tobacco [...] on filedocumented in this encounter Care Teams Urgent Care Physician Assistant Relationship Specialty Start Date End Date Bobby Das MD PCP - General 07/06/[address] [place] [address] ,[address] [place] [phone] documented as of this encounter
--- OUTSIDE RECORDS SUMMARY | 2022-07-10 09:43 | XMS_ITS | Encounter Summary ---
:1940 Author Organization [facility] Address [address] [place] [address] Care Team Providers Name Role Phone Bobby Das MD Primary Care Provider Encounter Details Date Type Department Care Team Description 04/12/2021 Lab Requisition [facility] Outr Resulting Lab, Pathology & Laboratory Provider [facility] [address] [place], [place] [phone] Social History Tobacco Use Types Packs/Day Years [...] nature Testosterone 269 229 - 902 ng/dL [facility] Specimen Blood - Venous blood (substance) Narrative [facility] - 04/12/2021 22:19 EDT The results of this assay can be falsley elevated due to the consumption of Biotin. Performing Organization Address City/State/ZIP Code Phon e Number [facility] [address] [place] [address] SERVICES documented in this encounter Visit Diagnoses Not on filedocumented in this encounter Care Teams Coding Advisor Relationship Specialty Start Date End Date Bobby Das MD PCP - General 07/06/[address] [place] [address] ,[address] [place] [phone] documented as of this encounter
--- OUTSIDE RECORDS SUMMARY | 2022-07-10 09:43 | XMS_ITS | Encounter Summary ---
:1940 Author Organization [facility] Address [address] [place] [address] Care Team Providers Name Role Phone Bobby Das MD Primary Care Provider Encounter Details Date Type Department Care Team Description 08/03/2020 Lab Requisition [facility] Outr Resulting Lab, Pathology & Laboratory Provider [facility] [address], [place] [id number] Social History Tobacco Use Types Packs/Day Years [...] (08/03/2020 12:22 EDT) COVID-19 rt-PCR NEGATIVE Negative [facility] [...] Address City/State/ZIP Code Phon e Number [facility] [place] COVID-19 TESTING (08/03/2020 12:22 EDT) Pathologist [facility] COVID-19 rt-PCR NEGATIVE Negative [facility] Result Comment: LABORATORY 2019-novel Coronavirus (2019 [...] Administration's Emergency Use Authorization. Performing Lab [facility] LABORATORY SERVICES Specimen Swab Performing Organization Address City/State/ZIP Code Phon e Number [facility] [address] [place] [address] SERVICES [facility] [place] documented in this encounter Visit Diagnoses Not on filedocumented in this encounter Care Teams Surveillance Analyst Relationship Specialty Start Date End Date Bobby Das MD PCP - General 07/06/[address] [place] [address] ,[address] [place] [address] documented as of this encounter
--- OUTSIDE RECORDS SUMMARY | 2022-07-10 09:43 | XMS_ITS | Encounter Summary ---
:1940 Author Organization [facility] Address [address] [place] [address] Care Team Providers Name Role Phone Bobby Das MD Primary Care Provider Reason for Visit Reason Comments Other Encounter Details Date Type Department Care Team Description 03/04/2019 Refill [facility] Radiation Adelfo Gutierrez ld Felix III, Other Oncology - Main [facility] [address] [place] [id number] [place] [address] [facility] [address] [place], [place] [address] (Wo rk) Social History [...] documented as of this encounter Care Teams Pilot Manager Relationship Specialty Start Date End Date Bobby Das MD PCP - General 07/06/[address] [place] [address],[address] [place] [address] documented as of this encounter
--- OUTSIDE RECORDS SUMMARY | 2022-07-10 09:43 | XMS_ITS | Encounter Summary ---
:1940 Author Organization [facility] Address [address] [place] [address] Care Team Providers Name Role Phone Bobby Das MD Primary Care Provider Encounter Details Date Type Department Care Team Description 07/16/2019 Phlebotomy Only [facility] Biztalk Consultant, Eboni barbosa neoplasm - [facility] Outpatient of prostate [address] [facility] ([facility]) (Primary [place], [place] Dx) [address] Social History Tobacco Use [...] DIAGNOSTIC of prostate procedure are i n ([facility]) the results section. documented in this encounter Results PSA TOTAL, DIAGNOSTIC (07/16/2019 9:30 EDT) PSA 0.1 0 - 6.5 ng/ml [facility] Comment: LABORATORY SERVICES Serum PSA concentration should not be interpreted as absolute evidence for the presence or absence of malignant disease. Assayed utilizing Siemens ([employer]) chemiluminescent technology. ??Values obtained by using different assay methods cannot be used interchangeably. Specimen Blood specimen (specimen) - Blood Performing Organization Address City/State/ZIP Code Phon e Number [facility] [address] [place] [address] SERVICES documented in this encounter Visit Diagnoses Diagnosis Malignant neoplasm of prostate ([facility]) (HCC) - Primary Malignant neoplasm of prostate documented in this encounter Orders Lab Orders Without Results Count Last Ordered Date st Ordered Date PSA TOTAL, DIAGNOSTIC 1 07/16/2019 documented in this encounter Care Teams Commercial Lawn Specialist Relationship Specialty Start Date End Date Bobby Das MD PCP - General 07/06/[address] [place] [address],[address] [place] [address] documented as of this encounter
--- OUTSIDE RECORDS SUMMARY | 2022-07-10 09:43 | XMS_ITS | Encounter Summary ---
:1940 Author Organization [facility] Address [address] [place] [address] Care Team Providers Name Role Phone Bobby Das MD Primary Care Provider Encounter Details Date Type Department Care Team Description 06/17/2019 Results Only Imaging [facility]- Unknown, PRISM ProviderMD [phone] Social History Tobacco Use Types Packs/Day Years [...] filedocumented in this encounter Care Teams Director Apparel Relationship Specialty Start Date End Date Bobby Das MD PCP - General 07/06/[address] [place] [address] ,[address] [place] [address] documented as of this encounter
--- OUTSIDE RECORDS SUMMARY | 2022-07-10 09:44 | XMS_ITS | Encounter Summary ---
:1940 Author Organization [facility] Address [address] [place] [address] Care Team Providers Name Role Phone Unknown, Provider Primary Care Provider Encounter Details Date Type Department Care Team Description 07/03/2015 Hospital Encounter [facility] Devi Unknown, Provider, [facility] 0 [facility] [phone] [place] [address] (Work) [phone] Social History Tobacco Use Types Packs/Day Years Used Date Never Assessed Sex Assigned at Date Recorded Not on file documented as of this encounter Discharge Disposition Disposition Code Departure Means Destination Home or Self [facility] documented in this encounter Plan of Treatment Not on filedocumented as of this encounter Visit Diagnoses Not on filedocumented in this encounter Care Teams Dovetailer Relationship Specialty Start Date End Date Unknown, Provider, PCP - General 07/03/15 07/05/15 documented as of this encounter
--- OUTSIDE RECORDS SUMMARY | 2022-07-10 09:44 | XMS_ITS | Encounter Summary ---
:1940 Author Organization [facility] Address [address] [place] [address] Care Team Providers Name Role Phone Unknown, Provider Primary Care Provider Encounter Details Date Type Department Care Team Description 07/03/2015 Results Only [facility]- PRISM Abby Das MD [phone] [place] [address],[address] [place], [place] [phone] (Wo rk) Social History Tobacco Use Types Packs/Day Years Used Date Never Assessed Sex Assigned at Date Recorded Not on file documented as of this encounter Plan of Treatment Not on filedocumented as of this encounter Procedures Procedure Name Priority Date/Time Associated Diagnosis Comme [facility] SURGICAL PATHOLOGY Routine 07/03/2015 8:54 EDT Re sults for this procedure are i n the results section. documented in this encounter Results SURGICAL PATHOLOGY (07/03/2015 8:54 EDT) Pathology Report: SURGICAL PATHOLOGY REPORT [facility] Reports generated via electronic interface contain abram ginal data; LABORATORY however they are lacking the format of the original re port. SERVICES Caution should be taken when reading/interpreting unfo rmatted reports. Name: ? ETTA BAH ? Accession #: ? [id number] ? : ? 1940 (Age: 74) ??M ? Collect Date: ? 07/03/2015 ? Location: ? [facility] ? Receive Date: ? 07/04/20 15 ? Provider: ABBY DAS MD Copy to: ? Final Pathologic Diagnosis: SKIN OF PENTECOSTALISM, RIGHT, EXCISION: - Basal cell carcinoma, infiltrative [...] the above diagnosi s. Specimen(s) Received: R evangelical Clinical History: Basal cell carcinoma reexcision Gross [...] City/State/ZIP Code Phon e Number [facility] [address] [place] [address] SERVICES documented in this encounter Visit Diagnoses Not on filedocumented in this encounter Care Teams Guidance Consultant Relationship Specialty Start Date End Date Unknown, Provider, PCP - General 07/03/15 07/05/15 documented as of this encounter
--- OUTSIDE RECORDS SUMMARY | 2022-07-10 09:44 | XMS_ITS | Encounter Summary ---
:1940 Author Organization [facility] Address [address] [place] [address] Care Team Providers Name Role Phone Bobby Das MD Primary Care Provider Reason for Visit Reason Comments Cancer Encounter Details Date Type Department Care Team Description 02/13/2018 Radiation Therapy [facility] Isela Law Ma lignant neoplasm of Visit Radiation Oncology - RN prostat e ([facility]) Main Spray (Primary Dx) [address] [place] [address] Social History Tobacco Use Types Packs/Day [...] encounter diagnosis was Malignant neoplasm of prostate ([facility]). Assessment: Assessment Completed By: Isela [...] prostate documented in this encounter Care Teams Asphalt Heater Operator Relationship Specialty Start Date End Date Bobby Das MD PCP - General 07/06/[address] [place] [address] ,[address] [place] [address] documented as of this encounter
--- OUTSIDE RECORDS SUMMARY | 2022-07-10 09:44 | XMS_ITS | Encounter Summary ---
:1940 Author Organization [facility] Address [address] [place] [address] Care Team Providers Name Role Phone Bobby Das MD Primary Care Provider Reason for Visit Reason Comments Prostate Cancer Encounter Details Date Type Department Care Team Description 11/19/2017 Office Visit [facility] Aries Gutierrez neoplasm of Radiation Oncology - Felix EAST MD prostate ([facility]) Main [address] ([facility]) (Primary 111 [facility] Dx) [place], [place] [phone] [place] [address] [facility] [address] [place] [address] (Wo rk) Social History Tobacco [...] Dr. José. 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 His pathology was reviewed here at [facility] which was confirmatory.A bone scan is [...] Social History: He is and lives in [facility]. 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 Once that result is available [...] prepared with voice recognition software. Please excuse threading machine feeder automatic errors documented in this encounter Plan of [...] daily. added in this encounter Care Teams Skin Toggler Relationship Specialty Start Date End Date Bobby Das MD PCP - General 07/06/[address] [place] [address] ,[address] [place] [address] documented as of this encounter
--- OUTSIDE RECORDS SUMMARY | 2022-07-10 09:44 | XMS_ITS | Encounter Summary ---
:1940 Author Organization [facility] Address [address] [place] [address] Care Team Providers Name Role Phone Bobby Das MD Primary Care Provider Encounter Details Date Type Department Care Team Description 01/08/2018 Hospital Encounter [facility] Aries Gutierrez Radiation Oncology - III, [facility] [address] [address] [address], [place] [phone] (Wo rk) Social History Tobacco Use Types [...] on filedocumented in this encounter Care Teams Hand Bander Relationship Specialty Start Date End Date Bobby Das MD PCP - General 07/06/[address] [place] [address],[address] [place] [address] documented as of this encounter
--- OUTSIDE RECORDS SUMMARY | 2022-07-10 09:44 | XMS_ITS | Encounter Summary ---
:1940 Author Organization [facility] Address [address] [place] [address] Care Team Providers Name Role Phone Bobby Das MD Primary Care Provider Reason for Visit Reason Onset Date Comments Follow-up 02/24/2018 Appointment Related 02/24/2018 scheduled appt w/ nu rsing for Lupron injection on 04/06 Encounter Details Date Type Department Care Team Description 02/24/2018 Telephone [facility] Ama Corea, Follow -up; Appointment Urology - James campo RN Related (scheduled appt [facility] w/ [place] [address] injection on 04/06) [phone] Social History Tobacco Use Types Packs/Day Years Used Date Current Every Day Smoker Smokeless Tobacco: Never Used Sex Assigned at Date Recorded Not on file documented as of this encounter Miscellaneous Notes Telephone Encounter - Mague Crisostomo - 02/25/2018 1044 EDT scheduled appt w/ nursing for Lupron injection on 04/06; pt prefers it at the [place] office Telephone Encounter - Ama Corea, RN [...] on filedocumented in this encounter Care Teams Clerical Administrative Assistant Relationship Specialty Start Date End Date Bobby Das MD PCP - General 07/06/[address] [place] [address],[address] [place] [address] documented as of this encounter
--- OUTSIDE RECORDS SUMMARY | 2022-07-10 09:44 | XMS_ITS | Encounter Summary ---
:1940 Author Organization [facility] Address [address] [place] [address] Care Team Providers Name Role Phone Bobby Das MD Primary Care Provider Reason for Visit Reason Comments Prostate Cancer Encounter Details Date Type Department Care Team Description 02/17/2018 Radiation Therapy [facility] Aries Gutierrez alignant neoplasm Visit Radiation Oncology Felix EAST MD of [facility] - [address] ([facility]) (Primary 111 [facility] Dx) [facility], [address] [place] [address] [address] [place] [address] Social History Tobacco Use Types Packs/Day Years Used Date Current Every Day Smoker Smokeless Tobacco: Never Used Sex Assigned at Date Recorded Not on file documented as of this encounter Progress Notes Delores Gutierrez III, MD - 02/17/2018 1112 EDT On Treatment Visit Assessment: Koko Zamora is currently receiving radiation therapy treatment and is being seen today for his weekly on treatment visit. The encounter diagnosis was Malignant neoplasm of prostate ([facility]). Assessment: Assessment Completed By: Felix Gutierrez MD (02/17/18 0834) Radiation Therapy: Cumulative RT Dose 3600 cGy [...] Changes: None Sj Gutierrez MD Radiation Oncology [phone] (office) [phone] (pager) documented in this encounter Plan of Treatment Not on filedocumented as of this encounter Visit Diagnoses Diagnosis Malignant neoplasm of prostate ([facility]) (HCC) - Primary Malignant neoplasm of prostate documented in this encounter Care Teams Cad Detailer Relationship Specialty Start Date End Date Bobby Das MD PCP - General 07/06/[address] [place] [address] ,[address] [place] [address] documented as of this encounter
--- OUTSIDE RECORDS SUMMARY | 2022-07-10 09:44 | XMS_ITS | Encounter Summary ---
:1940 Author Organization [facility] Address [address] [place] [address] Care Team Providers Name Role Phone Bobby Das MD Primary Care Provider Reason for Visit Reason Onset Date Comments Medication Management 11/21/2017 Encounter Details Date Type Department Care Team Description 11/21/2017 Orders Only [facility] Radiation De Law RN Oncology - [address] [phone] Social History Tobacco Use Types Packs/Day Years [...] filedocumented in this encounter Care Teams Supervisor Graphite Relationship Specialty Start Date End Date Bobby Das MD PCP - General 07/06/[address] [place] [address] ,[address] [place] [address] documented as of this encounter
--- OUTSIDE RECORDS SUMMARY | 2022-07-10 09:44 | XMS_ITS | Encounter Summary ---
:1940 Author Organization [facility] Address [address] [place] [address] Care Team Providers Name Role Phone Bobby Das MD Primary Care Provider Reason for Visit Reason Onset Date Comments Follow-up 01/12/2018 Encounter Details Date Type Department Care Team Description 01/12/2018 Telephone [facility] Radiation De Law RN Follow-up Oncology - [address] [address] Social History Tobacco Use Types Packs/Day Years Used Date Current Every Day Smoker Smokeless Tobacco: Never Used Sex Assigned at Date Recorded Not on file documented as of this encounter Miscellaneous Notes Telephone Encounter - Isela Law RN - 01/12/2018 7455 EST This is a planned post procedure [...] on filedocumented in this encounter Care Teams Chief Human Resources Officer Relationship Specialty Start Date End Date Bobby Das MD PCP - General 07/06/[address] [place] [address],[address] [place] [address] documented as of this encounter
--- OUTSIDE RECORDS SUMMARY | 2022-07-10 09:44 | XMS_ITS | Encounter Summary ---
:[address] [facility] Address [address] [place] [address] Care Team Providers Name Role Phone Bobby Das MD Primary Care Provider Reason for Visit Reason Comments Prostate Cancer Encounter Details Date Type Department Care Team Description 02/03/2018 Radiation Therapy [facility] Aries Gutierrez alignant neoplasm Visit Radiation Oncology Felix EAST MD of [facility] - [address] ([facility]) ([facility] [address] [place] [address] (Primary Dx) [facility], [address] [place] [address] [address] [place] [address] Social History Tobacco Use Types Packs/Day Years Used Date Current Every Day Smoker Smokeless Tobacco: Never Used Sex Assigned at Date Recorded Not on file documented as of this encounter Progress Notes Delores Gutierrez III, MD - 02/03/2018 6852 EDT On Treatment Visit Assessment: Koko Zamora is currently receiving radiation therapy treatment and is being seen today for his weekly on treatment visit. The encounter diagnosis was Malignant neoplasm of prostate ([facility]). Assessment: Assessment Completed By: Felix Gutierrez MD (02/03/18 5581) Radiation Therapy: Cumulative RT Dose 600 cGy [...] Changes: None Sj Gutierrez MD Radiation Oncology [phone] (office) [phone] (pager) documented in this encounter Plan of [...] documented as of this encounter Care Teams Dry Cell Tester Relationship Specialty Start Date End Date Bobby Das MD PCP - General 07/06/[address] [place] [address],[address] [place] [address] documented as of this encounter
--- OUTSIDE RECORDS SUMMARY | 2022-07-10 09:44 | XMS_ITS | Encounter Summary ---
:1940 Author Organization [facility] Address [address] [place] [address] Care Team Providers Name Role Phone Bobby Das MD Primary Care Provider Encounter Details Date Type Department Care Team Description 11/20/2017 Results Only Imaging [facility]- Unknown, PRISM ProviderMD [phone] Social History Tobacco Use Types Packs/Day Years [...] on filedocumented in this encounter Care Teams Wildland Fire Fighter Relationship Specialty Start Date End Date Bobby Das MD PCP - General 07/06/[address] [place] [address],[address] [place] [address] documented as of this encounter
--- OUTSIDE RECORDS SUMMARY | 2022-07-10 09:44 | XMS_ITS | Encounter Summary ---
:1940 Author Organization [facility] Address [address] [place] [address] Care Team Providers Name Role Phone Bobby Das MD Primary Care Provider Reason for Visit Reason Onset Date Comments Diagnostic Imaging Report 11/25/2017 Encounter Details Date Type Department Care Team Description 11/25/2017 Telephone [facility] Lynn Vargas RN Diagnostic Imaging Radiation Oncology - [address] [place] [address] Report [place], [place] [phone] [place] [address] Social History Tobacco Use Types Packs/Day Years [...] on filedocumented in this encounter Care Teams Lime Spreader Relationship Specialty Start Date End Date Bobby Das MD PCP - General 07/06/[address] [place] [address] ,[address] [place] [address] documented as of this encounter
--- OUTSIDE RECORDS SUMMARY | 2022-07-10 09:44 | XMS_ITS | Encounter Summary ---
:1940 Author Organization [facility] Address [address] [place] [address] Care Team Providers Name Role Phone Bobby Das MD Primary Care Provider Reason for Visit Reason Onset Date Comments Appointment Related 03/19/2018 Encounter Details Date Type Department Care Team Description 03/19/[address] [facility] Dominique Mirza, Sloane ointment Related Urology - James campo RN [address] [place] [address] Social History Tobacco Use Types [...] there. ill plan to see him at [facility]. Tc to pt to advise [...] the pt be seen at [facility] as originally suggested in 's 01/05 progress note. Will call patient to let him know if he needs to f/u with and if so, can he be seen at [facility]. documented in this encounter Plan of Treatment Not on filedocumented as of this encounter Visit Diagnoses Not on filedocumented in this encounter Care Teams Bow String Maker Relationship Specialty Start Date End Date Bobby Das MD PCP - General 07/06/[address] [place] [address],[address] [place] [address] documented as of this encounter
--- OUTSIDE RECORDS SUMMARY | 2022-07-10 09:44 | XMS_ITS | Encounter Summary ---
:1940 Author Organization [facility] Address [address] [place] [address] Care Team Providers Name Role Phone Bobby Das MD Primary Care Provider Encounter Details Date Type Department Care Team Description 10/29/2017 Results Only [facility] Erlin José MD Urology - [address] [address] [address], [place] [phone] (Wo rk) Social History Tobacco Use Types [...] (10/29/2017 8:21 EST) Pathology SURGICAL PATHOLOGY REPORT [facility] MEDICAL Report: Reports generated via electronic interface conta in original data; CENTER LABORATORY however they are lacking the format of the original re port. SERVICES Caution should be taken when reading/interpreting unfo rmatted reports. Name: ? ETTA BAH ? Accession #: ? [id number] ? : ? 1940 (Age: 77) ??M [...] to 6: Prognostic Grad e Group I Wal[place]alla score 3+4=7: Prognostic Grade Group II [place] score 4+3=7: Prognostic Grade Group III Winifred score 8: Prognostic Grade Group IV Winifred score 9-10: Prognostic Grade Group V References for Prognostic Grade Groups: J Clin Hercules 2012;30:0231-2017 Joey CASTAÑEDA. The Win[place]red Grading System (A Comple te Guide for Pathologists and Clinicians), LWW, 2013 Serg PM, Shell PW, Edward AW, Joey JI. Progno stic Winifred Grade Grouping: Data based on the modified [place]alla scoring s yste. BJU Int 2013;111:753-760 A. [...] leason pattern: ? Grade 3 ?- ??Secondary Walhalla pattern: ? Grade 3 ?- ??Total Gle [...] of 2 cores. ? - Global tumor Wal[place]alla score: ?3 + 4 = 7 (30% [...] Address City/State/ZIP Code Phon e Number [facility] [address] [place] [address] SERVICES documented in this encounter Visit Diagnoses Not on filedocumented in this encounter Care Teams Pmo Project Manager Relationship Specialty Start Date End Date Bobby Das MD PCP - General 07/06/[address] [place] [address] ,[address] [place] [address] documented as of this encounter
--- OUTSIDE RECORDS SUMMARY | 2022-07-10 09:44 | XMS_ITS | Encounter Summary ---
:1940 Author Organization [facility] Address [address] [place] [address] Care Team Providers Name Role Phone Bobby Das MD Primary Care Provider Encounter Details Date Type Department Care Team Description 02/25/2018 Documentation Visit [facility] Adama Vargas RN Radiation Oncology - [address] [place] [address] [place] [address] Social History Tobacco Use Types Packs/Day Years Used Date Current Every Day Smoker Smokeless Tobacco: Never Used Sex Assigned at Date Recorded Not on file documented as of this encounter Progress Notes Lynn Vargas RN - 02/25/2018 9653 EDT Koko Zamora requested to be seen [...] filedocumented in this encounter Care Teams Manager Professional Development Relationship Specialty Start Date End Date Bobby Das MD PCP - General 07/06/[address] [place] [address],[address] [place] [address] documented as of this encounter
--- OUTSIDE RECORDS SUMMARY | 2022-07-10 09:44 | XMS_ITS | Encounter Summary ---
:1940 Author Organization [facility] Address [address] [place] [address] Care Team Providers Name Role Phone Bobby Das MD Primary Care Provider Reason for Visit Reason Onset Date Comments Cancer 02/16/2018 Encounter Details Date Type Department Care Team Description 02/16/2018 Orders Only [facility] Isela Law Maligna nt neoplasm of prostate (HCC-CMS) (Primary Dx); Radiation Oncology - RN Andvamshi n deprivation therapy [address] [address] Social History Tobacco Use Types Packs/Day Years [...] g documented in this encounter Care Teams Teacher Lip Reading Relationship Specialty Start Date End Date Bobby Das MD PCP - General 07/06/[address] [place] [address] ,[address] [place] [address] documented as of this encounter
--- OUTSIDE RECORDS SUMMARY | 2022-07-10 09:44 | XMS_ITS | Encounter Summary ---
:1940 Author Organization [facility] Address [address] [place] [address] Care Team Providers Name Role Phone Bobby Das MD Primary Care Provider Encounter Details Date Type Department Care Team Description 01/08/2018 Procedure visit [facility] Aries Gutierrez Radiation Oncology - IIIMD [address] [address] [address], [place] [phone] (Wo rk) Social History Tobacco Use Types [...] prostate gland. DATE OF SERVICE: 01/08/2018 INDICATIONS: [id number], PSA 12.8 Winifred score 3+4 = 7 [...] documented as of this encounter Care Teams Tax Economist Relationship Specialty Start Date End Date Bobby Das MD PCP - General 07/06/[address] [place] [address] ,[address] [place] [address] documented as of this encounter
--- OUTSIDE RECORDS SUMMARY | 2022-07-10 09:44 | XMS_ITS | Encounter Summary ---
:1940 Author Organization [facility] Address [address] [place] [address] Care Team Providers Name Role Phone Bobby Das MD Primary Care Provider Reason for Visit Reason Comments Prostate Cancer Encounter Details Date Type Department Care Team Description 02/23/2018 Radiation Therapy [facility] Aries Gutierrez alignant neoplasm Visit Radiation Oncology Felix EAST MD of [facility] - [address] ([facility]) (Primary [address] [place] [address] Dx) [facility], [address] [place] [address] [address] [place] [address] Social History Tobacco Use Types [...] diagnosis was Malignant neoplasm of prostate ([facility]). Assessment: Assessment Completed By: Felix Gutierrez MD (02/23/18 7725) Radiation Therapy: Cumulative RT Dose 4800 cGy [...] Dr. King Sj Gutierrez MD Radiation Oncology [phone] (office) [phone] (pager) documented in this encounter Plan of Treatment Not on filedocumented as of this encounter Visit Diagnoses Diagnosis Malignant neoplasm of prostate (HCC-CMS) (HCC) - Primary Malignant neoplasm of prostate documented in this encounter Care Teams Chemical Sprayer Relationship Specialty Start Date End Date Bobby Das MD PCP - General 07/06/[address] [place] [address] ,[address] [place] [address] documented as of this encounter
--- OUTSIDE RECORDS SUMMARY | 2022-07-10 09:44 | XMS_ITS | Encounter Summary ---
:1940 Author Organization [facility] Address [address] [place] [address] Care Team Providers Name Role Phone Bobby Das MD Primary Care Provider Reason for Visit Reason Onset Date Comments Medication Management 02/16/2018 Encounter Details Date Type Department Care Team Description 02/16/2018 Orders Only [facility] Radiation De Law risk control field representative - [address] [phone] Social History Tobacco Use Types Packs/Day Years [...] on filedocumented in this encounter Care Teams Content Coordinator Relationship Specialty Start Date End Date Bobby Das MD PCP - General 07/06/[address] [place] [address],[address] [place] [address] documented as of this encounter
--- OUTSIDE RECORDS SUMMARY | 2022-07-10 09:44 | XMS_ITS | Encounter Summary ---
:1940 Author Organization [facility] Address [address] [place] [address] Care Team Providers Name Role Phone Bobby Das MD Primary Care Provider Reason for Visit Reason Onset Date Comments Cancer 03/18/2018 Encounter Details Date Type Department Care Team Description 03/18/2018 Telephone [facility] Aries Gutierrez II, Cancer Radiation Oncology - [address] [address] [address], [place] [address] (Wo rk) Social History Tobacco Use Types Packs/Day Years Used Date Current Every Day Smoker Smokeless Tobacco: Never Used Sex Assigned at Date Recorded Not on file documented as of this encounter Miscellaneous Notes Telephone Encounter - Delores Gutierrez III, MD - 03/18/2018 2410 EDT RADIATION ONCOLOGY Mr. Zamora called the [...] this month. Sj Gutierrez MD Radiation Oncology [phone] (office) [phone] (pager) This note has been prepared with voice recognition software. Please excuse market investigator errors. documented in this encounter Plan of Treatment Not on filedocumented as of this encounter Visit Diagnoses Not on filedocumented in this encounter Care Teams Director Digital Advertising Relationship Specialty Start Date End Date Bobby Das MD PCP - General 07/06/[address] [place] [address] ,[address] [place] [address] documented as of this encounter
--- OUTSIDE RECORDS SUMMARY | 2022-07-10 09:44 | XMS_ITS | Encounter Summary ---
:1940 Author Organization [facility] Address [address] [place] [address] Care Team Providers Name Role Phone Bobby Das MD Primary Care Provider Reason for Visit Reason Comments Follow-up Injection Encounter Details Date Type Department Care Team Description 01/05/2018 Office Visit [facility] Erlin José MD Malignant neoplasm of Urology - Main [address] [place] [address] ([facility] ([facility]) (Primary [address] [facility], [facility]) [place] [address] [address], [place] [address] (Wo rk) Social History Tobacco [...] Progress Notes Chino José MD - 01/05/2018 0762 EST Chief Complaint: Chief Complaint Patient presents with ??? Follow-up Injection HPI: Koko is a 77 y.o. male with prostate cancer. Grant presented with an elevated PSA to 12.8 shaw palpable nodule and on biopsy had 2 out of 12 cores positive for Winifred 3+3 and [place] 3+4 prostate cancer. T2a. He previously had [...] Dr. Gutierrez this week See me at [facility] after radiation therapy is complete with a [...] mg documented in this encounter Care Teams Lumber Checker Relationship Specialty Start Date End Date Bobby Das MD PCP - General 07/06/[address] [place] [address],[address] [place] [address] documented as of this encounter
--- OUTSIDE RECORDS SUMMARY | 2022-07-10 09:44 | XMS_ITS | Encounter Summary ---
:1940 Author Organization [facility] Address [address] [place] [address] Care Team Providers Name Role Phone Bobby Das MD Primary Care Provider Reason for Visit Reason Comments Cancer Encounter Details Date Type Department Care Team Description 01/08/2018 Radiation Therapy [facility] Isela Law Ma lignant neoplasm of Visit Radiation Oncology - RN prostat e ([facility]) Main [place] ([facility]) (Primary [address] Dx) [place] [address] Social History Tobacco Use Types [...] Assessment Completed By: Isela Law RN (01/08/18 1320) Patient Education Topic: Method: Handout and Verbal [...] and get free services/meds from afar. Referrals insulation worker interior surface: Yes (Shadi will meet with Santhosh Cosby MSW next week to review the DT and supportive services. ) Services: Kylee [place]: No Other: Subjective Note: General: Koko and his Ursula are here for the treatment teaching session post Fiducials being placed. Shadi and his run a B & [employer] in [place]. They are concerned that he might be [...] prostate documented in this encounter Care Teams Cannery Worker Relationship Specialty Start Date End Date Bobby Das MD PCP - General 07/06/[address] [place] [address] ,[address] [place] [address] documented as of this encounter
--- OUTSIDE RECORDS SUMMARY | 2022-07-10 09:44 | XMS_ITS | Encounter Summary ---
:1940 Author Organization [facility] Address [address] [place] [address] Care Team Providers Name Role Phone Bobby Das MD Primary Care Provider Reason for Visit Reason Comments Cancer Encounter Details Date Type Department Care Team Description 02/06/2018 Radiation Therapy [facility] Lynn Vargas RN Malignant neoplasm Visit Radiation Oncology [address] [facility] ([facility]) ([facility]) [address] [place] [address] (Primary Dx) [place] [phone] Social History Tobacco Use Types Packs/Day Years [...] encounter diagnosis was Malignant neoplasm of prostate ([facility]). Assessment: Assessment Completed By: Lynn Vargas [...] Visit Diagnoses Diagnosis Malignant neoplasm of prostate ([facility]) (HCC) - Primary Malignant neoplasm of prostate documented in this encounter Care Teams Scoring Machine Operator Relationship Specialty Start Date End Date Bobby Das MD PCP - General 07/06/[address] [place] [address],[address] [place] [address] documented as of this encounter
--- OUTSIDE RECORDS SUMMARY | 2022-07-10 09:44 | XMS_ITS | Encounter Summary ---
:[address] [facility] Address [address] [place] [address] Care Team Providers Name Role Phone Bobby Das MD Primary Care Provider Encounter Details Date Type Department Care Team Description 01/16/2018 Documentation Visit [facility] Santhosh Cosby Radiation Oncology - Main [address] [phone] Social History Tobacco Use Types Packs/Day Years Used Date Current Every Day Smoker Smokeless Tobacco: Never Used Sex Assigned at Date Recorded Not on file documented as of this encounter Progress Notes Santhosh Cosby - 01/16/2018 5157 EST SOCIAL WORK ASSESSMENT: Amount of Distress: 0 Practical Problems: None Family Problems: None Emotional Problems: None Physical Problems: None Spiritual/Episcopalian Concerns: No Other Problems: Social Work Assessment: [...] Prostate Cancer Living Arrangements: Pt lives in [place], [place] with his . They operate a [...] social work as needed. ASH Antonio phone [phone] pager [phone] documented in this encounter Plan of Treatment Not on filedocumented as of this encounter Visit Diagnoses Not on filedocumented in this encounter Care Teams Medical Aides Teacher Relationship Specialty Start Date End Date Bobby Das MD PCP - General 07/06/[address] [place] [address],[address] [place] [phone] documented as of this encounter
--- OUTSIDE RECORDS SUMMARY | 2022-07-10 09:44 | XMS_ITS | Encounter Summary ---
:1940 Author Organization [facility] Address [address] [place] [address] Care Team Providers Name Role Phone Bobby Das MD Primary Care Provider Reason for Visit Reason Comments Cancer Encounter Details Date Type Department Care Team Description 01/08/2018 Radiation Therapy [facility] Isela Law Ma lignant neoplasm of Visit Radiation Oncology - RN prostat e ([facility]) Main [place] ([facility]) (Primary [address] [facility] Dx) [place] [address] Social History Tobacco Use Types [...] 2, injectable lidocaine 1%, topical lidocaine 2% Kook Zamora identification and treatment verification was performed [...] prostate documented in this encounter Care Teams 5Th Grade Teacher Relationship Specialty Start Date End Date Bobby Das MD PCP - General 07/06/[address] [place] [address],[address] [place] [phone] documented as of this encounter
--- OUTSIDE RECORDS SUMMARY | 2022-07-10 09:44 | XMS_ITS | Encounter Summary ---
:1940 Author Organization [facility] Address [address] [place] [address] Care Team Providers Name Role Phone Bobby Das MD Primary Care Provider Reason for Visit Reason Comments Prostate Cancer Encounter Details Date Type Department Care Team Description 02/10/2018 Radiation Therapy [facility] Aries Gutierrez alignant neoplasm Visit Radiation Oncology Felix EAST MD of [facility] - [address] ([facility]) (Primary [address] [facility] Dx) [facility], [address] [place] [address] [address] [place] [address] Social History Tobacco Use Types [...] diagnosis was Malignant neoplasm of prostate ([facility]). Assessment: Assessment Completed By: Felix Gutierrez MD (02/10/18 1959) Radiation Therapy: Cumulative RT Dose 2400 cGy [...] Changes: None Sj Gutierrez MD Radiation Oncology [phone] (office) [phone] (pager) documented in this encounter Plan of Treatment Not on filedocumented as of this encounter Visit Diagnoses Diagnosis Malignant neoplasm of prostate (HCC-CMS) (HCC) - Primary Malignant neoplasm of prostate documented in this encounter Care Teams Clinical Educator Relationship Specialty Start Date End Date Bobby Das MD PCP - General 07/06/[address] [place] [address] ,[address] [place] [address] documented as of this encounter
--- OUTSIDE RECORDS SUMMARY | 2022-07-10 09:44 | XMS_ITS | Encounter Summary ---
:1940 Author Organization [facility] Address [address] [place] [address] Care Team Providers Name Role Phone Bobby Das MD Primary Care Provider Encounter Details Date Type Department Care Team Description 04/23/2018 Hospital Encounter [facility]- Devi Unknown, Provider, [facility] [address] [facility] [phone] [place] [address] (Work) [phone] Social History Tobacco Use Types Packs/Day Years [...] Code Departure Means Destination Home or Self Residential documented in this encounter Plan of Treatment Not on filedocumented as of this encounter Visit Diagnoses Not on filedocumented in this encounter Care Teams Homeowner Association Manager Relationship Specialty Start Date End Date Bobby Das MD PCP - General 07/06/[address] [place] [address] ,[address] [place] [address] documented as of this encounter
--- OUTSIDE RECORDS SUMMARY | 2022-07-10 09:44 | XMS_ITS | Encounter Summary ---
:1940 Author Organization [facility] Address [address] [place] [address] Care Team Providers Name Role Phone Bobby Das MD Primary Care Provider Reason for Visit Reason Comments Cancer Encounter Details Date Type Department Care Team Description 02/27/2018 Radiation Therapy [facility] Letty Gaitan RN Malignant neoplasm Visit Radiation Oncology [address] [place] [address] ([facility]) (Primary [address] [place], [place] Dx) [place] [phone] Social History Tobacco Use Types Packs/Day Years [...] encounter diagnosis was Malignant neoplasm of prostate ([facility]). Assessment: Assessment Completed By: Janae Gaitan RN [...] prostate documented in this encounter Care Teams Supervisor Mill Relationship Specialty Start Date End Date Bobby Das MD PCP - General 07/06/[address] [place] [address] ,[address] [place] [address] documented as of this encounter
--- OUTSIDE RECORDS SUMMARY | 2022-07-10 09:44 | XMS_ITS | Encounter Summary ---
:1940 Author Organization [facility] Address [address] [place] [address] Care Team Providers Name Role Phone Bobby Das MD Primary Care Provider Reason for Visit Reason Onset Date Comments Prostate Cancer 11/20/2017 Encounter Details Date Type Department Care Team Description 11/20/2017 Telephone [facility] Aries Gutierrez Cancer Radiation Oncology - III, [address] [address] [address], [place] [address] (Wo rk) Social History Tobacco Use Types Packs/Day Years Used Date Current Every Day Smoker Smokeless Tobacco: Never Used Sex Assigned at Date Recorded Not on file documented as of this encounter Miscellaneous Notes Telephone Encounter - Delores Gutierrez III, MD - 11/20/2017 3929 EST RADIATION ONCOLOGY I spoke with Mr. Zamora by phone today. [facility] today[facility]als no evidence of metastatic disease. He is eager to start therapy. I discussed his care with Dr. José. We will coordinate initiation of androgen deprivation as soon as practical. He will return for fiducial marker placement in approximately 6 weeks, anticipate we will start his treatment approximately 2 months after his first injection. Sj Gutierrez MD Radiation Oncology [phone] (office) [phone] (pager) This note has been prepared with voice recognition software. Please excuse critical care physician assistant errors. documented in this encounter Plan of Treatment Not on filedocumented as of this encounter Visit Diagnoses Diagnosis Malignant neoplasm of prostate (HCC-CMS) (HCC) - Primary Malignant neoplasm of prostate documented in this encounter Care Teams Link Trainer Maintenance Man Relationship Specialty Start Date End Date Bobby Das MD PCP - General 07/06/[address] [place] [address],[address] [place] [address] documented as of this encounter
--- OUTSIDE RECORDS SUMMARY | 2022-07-10 09:44 | XMS_ITS | Encounter Summary ---
:1940 Author Organization [facility] Address [address] [place] [address] Care Team Providers Name Role Phone Bobby Das MD Primary Care Provider Reason for Visit Reason Onset Date Comments Follow-up 03/06/2018 Encounter Details Date Type Department Care Team Description 03/06/2018 Telephone [facility] Theron Rojas RN Follow-up Radiation Oncology - Main [address] [place] [phone] [place] [address] Social History Tobacco Use Types Packs/Day Years Used Date Current Every Day Smoker Smokeless Tobacco: Never Used Sex Assigned at Date Recorded Not on file documented as of this encounter Miscellaneous Notes Telephone Encounter - Rupal Rojas RN - 03/06/2018 1301 EDT I called and spoke with Koko [...] on filedocumented in this encounter Care Teams Wood Machinist Relationship Specialty Start Date End Date Bobby Das MD PCP - General 07/06/[address] [place] [address],[address] [place] [address] documented as of this encounter
--- OUTSIDE RECORDS SUMMARY | 2022-07-10 09:44 | XMS_ITS | Encounter Summary ---
:1940 Author Organization [facility] Address [address] [place] [address] Care Team Providers Name Role Phone Bobby Das MD Primary Care Provider Encounter Details Date Type Department Care Team Description 10/29/2017 Hospital Encounter [facility]- Devi Unknown, Provider, [facility] [address] [facility] [phone] [place] [address] (Work) [phone] Social History Tobacco Use Types Packs/Day Years Used Date Never Assessed Sex Assigned at Date Recorded Not on file documented as of this encounter Discharge Disposition Disposition Code Departure Means Destination Home or Self Detention documented in this encounter Plan of Treatment Not on filedocumented as of this encounter Visit Diagnoses Not on filedocumented in this encounter Care Teams Room Cooler Installer Relationship Specialty Start Date End Date Bobby Das MD PCP - General 07/06/[address] [place] [address],[address] [place] [address] documented as of this encounter
== END 2022-07-10 23:59 | disposition home or self-care (01) ==
LOC: CR 09:32
PROVIDERS: PCP Family Medicine; Visit Provider Internal Medicine Cardiovascular Disease
DX: Z51.89 Encounter for other specified aftercare (principal); Z95.5 Presence of coronary angioplasty implant and graft
CPT/HCPCS: S9472

== ENCOUNTER 2022-07-19 11:57 | Emergency (ER) | payer MEDICARE, SELFPAY ==
[2022-07-19] VITALS (57 sets, daily range): BP systolic 95–110; BP diastolic 40–87; PULSE 70–104; RESP 12–27; TEMP 36.4–36.7; O2SAT 92–99
--- NOTE | 2022-07-19 12:00 | RT.EKG_ITS ---
APPROVED REPORT Exam: Resting ECG Reason for Exam: dizzyness Patient Location: E HR:86 bpm ECG Measurements Heart Rate 86 AXIS AL [id number] P [id number] QRSd 114 QRS -44 QT 394 T 113 QTc 473 Conclusion Atrial fibrillationh Left anterior fascicular block...axis(240,-40), init forces inf
--- NOTE | 2022-07-19 12:45 | W.ED.GENAD ---
Discharge Plan Disposition Patient Disposition: HOME Condition: Improving Discharge Details Clinical Impression: Dehydration Primary Care Provider: Bobby Das ED Provider: Jl Gresham Home Meds and New Rx's Prescriptions: Continued fluticasone propionate 50 mcg/actuation spray,suspension 1 spray intranasal BID Rx Instructions: administer into each nostril mupirocin 2 % ointment 1 applic topical TID acetaminophen 325 mg capsule 650 mg PO Q6H PRN clopidogrel [Plavix] 75 mg tablet 75 mg PO DAILY Farxiga 5 mg tablet 5 mg PO DAILY pantoprazole 40 mg tablet,delayed release (DR/EC) 40 mg PO DAILY Xarelto 20 mg tablet 20 mg PO DAILY Rx Instructions: must administer with evening meal tamsulosin 0.4 mg capsule 1 cap PO 1XD Label Comments: TAKE ONE CAPSULE BY MOUTH AT BEDTIME rosuvastatin 40 mg tablet 1 tab PO 1XD Label Comments: TAKE ONE TABLET BY MOUTH EVERY DAY multivitamin Tablet 1 tab PO DAILY calcium citrate 200 mg (950 mg) Tablet 200 mg PO DAILY carboxymethylcellulose sodium [Refresh Plus] 0.5 % Dropperette 3 drp ophthalmic (eye) TID PRN digoxin 125 mcg (0.125 mg) tablet 125 mcg PO DAILY Label Comments: TAKE ONE TABLET BY MOUTH EVERY DAY sucralfate 1 gram Tablet 1 g PO AC & HS Qty: 120 0RF metoprolol succinate 50 mg tablet extended release 24 hr 25 mg PO BID Qty: 0 0RF valsartan 40 mg tablet 20 mg PO BID Qty: 1 0RF Label Comments: TAKE ONE TABLET BY MOUTH TWICE A DAY Rx Instructions: take half tablet by mouth twice a day Discharge Instructions Instructions: Dehydration (ED) Additional Instructions: Continue close surveillance of your bowel movements. If you develop bloody bowel movements please see your nearest healthcare facility. Please follow-up with regular doctor at [facility] for recheck next week. I have ordered outpatient blood work for you Continue all routine medications. Small, frequent sips of fluids today to maintain hydration Medical Decision Making <Trenton Gross MD - Last Filed: 07/19/22 14:59> 81-year-old male who is recent past medical history is notable for left leg peripheral vascular disease requiring acute intervention, complicated by myocardial infarction and stent placement, with subsequent GI bleed requiring upper and lower endoscopy with cauterization performed. He has been home for approximately 2 weeks and feeling improved. He is taking his Plavix and Eliquis. Early this morning he had a large-volume dark brown loose stool associated with weakness, diaphoresis and profound nausea. He did not have any emesis. He was weak at home and is took his blood pressure 83 systolic, resulting in his presentation to the ER. On arrival patient's blood pressure is 104 systolic, he is afebrile and mentating normal. He does have guaiac positive brown stool on exam. He also has left leg edema for which an ultrasound is ordered. CBC reveals a white count of 8, hemoglobin 8.3, hematocrit 26, platelets 227. Will note a previous alesia of hemoglobin in the 6 range. Chemistries with BUN 22, creatinine 0.8. Comparison notes likely some prerenal dehydration given previous BUN of 10. Patient improving with fluids. Ultrasound left lower EXTR pending. Anticipate discharge to home. Patient was signed out to Dr. Gresham pending review of final diagnostics. <Jl Gresham MD - Last Filed: 07/19/22 16:07> 81-year-old male who is recent past medical history is notable for left leg peripheral vascular disease requiring acute intervention, complicated by myocardial infarction and stent placement, with subsequent GI bleed requiring upper and lower endoscopy with cauterization performed. He has been home for approximately 2 weeks and feeling improved. He is taking his Plavix and Eliquis. Early this morning he had a large-volume dark brown loose stool associated with weakness, diaphoresis and profound nausea. He did not have any emesis. He was weak at home and is took his blood pressure 83 systolic, resulting in his presentation to the ER. On arrival patient's blood pressure is 104 systolic, he is afebrile and mentating normal. He does have guaiac positive brown stool on exam. He also has left leg edema for which an ultrasound is ordered. CBC reveals a white count of 8, hemoglobin 8.3, hematocrit 26, platelets 227. Will note a previous alesia of hemoglobin in the 6 range. Chemistries with BUN 22, creatinine 0.8. Comparison notes likely some prerenal dehydration given previous BUN of 10. Patient improving with fluids. Ultrasound left lower EXTR pending. Anticipate discharge to home. Patient was signed out to Dr. Gresham pending review of final diagnostics. pt's u/s negative for dvt, he feels well and has no complaints now. will have him recheck cbc next week and advised to f/u with pcp and return precautions given HPI <Trenton Gross MD - Last Filed: 07/19/22 14:59> General Mode of arrival: ambulatory. Date/Time Provider Initiated Documentation: 07/19/22 12:02. Limitations to Documentation: no limitations. Information obtained by: patient. History of Present Illness 81 year old M presents to the emergency department with the chief complaint of Weak and dizzy, loose dark stool at home, described as moderate, Patient reports no radiation. Patient started experiencing this hour(s) and it has been intermittent. Rest improves symptom(s), Other factors that worsen symptoms (Worse throughout) . Patient notes headaches, loss of appetite and weakness; denies syncope. Patient did receive the following treatments prior to arrival, none Related Data Home Medications Medication Instructions Recorded Confirmed rosuvastatin 40 mg tablet 1 tab PO 1XD 05/15/22 06/23/22 tamsulosin 0.4 mg capsule 1 cap PO 1XD 05/15/22 06/23/22 fluticasone propionate 50 1 spray intranasal BID 06/13/22 06/23/22 mcg/actuation nasal spray,suspension mupirocin 2 % topical ointment 1 applic topical TID 06/13/22 06/23/22 acetaminophen 325 mg capsule 650 mg PO Q6H PRN 06/14/22 06/23/22 clopidogrel 75 mg tablet (Plavix) 75 mg PO DAILY 06/14/22 06/23/22 dapagliflozin 5 mg tablet (Farxiga) 5 mg PO DAILY 06/14/22 06/23/22 pantoprazole 40 mg tablet,delayed 40 mg PO DAILY 06/14/22 06/23/22 release rivaroxaban 20 mg tablet (Xarelto) 20 mg PO DAILY 06/14/22 06/23/22 calcium citrate 200 mg (950 mg) 200 mg PO DAILY 06/23/22 06/23/22 tablet carboxymethylcellulose sodium 0.5 3 drp ophthalmic (eye) TID PRN 06/23/22 06/23/22 % eye drops in a dropperette (Refresh Plus) digoxin 125 mcg (0.125 mg) tablet 125 mcg PO DAILY 06/23/22 06/23/22 multivitamin 1 tab PO DAILY 06/23/22 06/23/22 metoprolol succinate 50 mg 25 mg PO BID #0 tabs 06/25/22 06/23/22 tablet,extended release 24 hr sucralfate 1 gram tablet 1 g PO AC & HS #120 tabs 06/25/22 valsartan 40 mg tablet 20 mg PO BID #1 tab 06/25/22 06/23/22 Previous Rx's Medication Instructions Recorded metoprolol succinate 50 mg 25 mg PO BID #0 tabs 06/25/22 tablet,extended release 24 hr sucralfate 1 gram tablet 1 g PO AC & HS #120 tabs 06/25/22 valsartan 40 mg tablet 20 mg PO BID #1 tab 06/25/22 Allergies Allergy/AdvReac Type Severity Reaction Status Date / Time aspirin AdvReac GI Bleeding Unverified 07/19/22 12:09 General Stated Complaint: Dizzy/Sync MÓNICA: 3 Review of Systems <Trenton Gross MD - Last Filed: 07/19/22 14:59> Narrative: 8 systems reviewed and otherwise neg PFSH <Trenton Gross MD - Last Filed: 07/19/22 14:59> All Active Problems (Updated 07/19/22 @ 14:58 by Trenton Gross MD) Dehydration (Acute) CHF (congestive heart failure) (Chronic) CAD (coronary artery disease), [place] coronary artery (Chronic) Chronic atrial fibrillation (Chronic) ABLA (acute blood loss anemia) (Acute) Medical History Abnormal stool color Allergic rhinitis Aortic stenosis Cervical radiculopathy Elevated PSA Gastric ulcer with hemorrhage GERD (gastroesophageal reflux disease) Heart failure HLD (hyperlipidemia) Insufficiency of tear film of both eyes Malignant neoplasm of prostate Malignant neoplasm of skin Nicotine dependence Type 2 diabetes mellitus Surgical History H/O heart surgery History of tonsillectomy Family History Father Cancer Mother Cardiac pacemaker Diabetes Brother Hyperlipidemia Social History Smoking/Tobacco Use Status: Former Tobacco Use Quit Date: 05/10/22 Tobacco: How many years used: 62 Smoking risk assessment performed?: Yes Alcohol Intake: former Drug use: Never Substance use type: does not use Do you feel safe at home: Yes Do you feel safe in your relationship?: Yes Exam <Trenton Gross MD - Last Filed: 07/19/22 14:59> Narrative Exam Narrative: GEN: awake, alert, oriented 3. Pleasant, well groomed, interactive. HEAD: Normocephalic, atraumatic ENT: Mucous membranes moist, oropharynx unremarkable, External ear exam unremarkable EYES: PERRL, EOMI NECK: Full ROM, no HAIR, no menigismus CHEST/RESP: Nontender, clear to auscultation bilateral, no wheeze/rhonchi/rales CARDIOVASCULAR: Irregularly irregular,, no murmur, rub anuj. 2+ Rad pulse bilateral ABDOMEN: Soft, nontender, no mass. +Bowel sounds. Brown stool present on digital rectal exam that is guaiac positive EXT: Full ROM, left leg trace pretibial edema, no rash Neuro: Grossly normal neurologic exam, conversant, interactive. Psych: Speech fluent, thoughts congruent, affect normal Course <Trenton Gross MD - Last Filed: 07/19/22 14:59> Vital Signs Vital signs: Vital Signs Temperature 36.7 C 07/19/22 12:06 Pulse 82 07/19/22 12:06 Respiratory Rate 18 07/19/22 12:06 Blood Pressure 109/87 07/19/22 12:06 Pulse Oximetry 97 07/19/22 12:06 Temperature 36.7 C 07/19/22 12:06 Temperature Source Temporal Artery Scan 07/19/22 12:06 Pulse 82 07/19/22 12:06 Respiratory Rate 18 07/19/22 12:06 Respiratory Effort 07/19/22 12:10 Blood Pressure 109/87 07/19/22 12:06 Blood Pressure Position Sitting 07/19/22 12:06 Pulse Oximetry 97 07/19/22 12:06 Oxygen Delivery Method Room Air 07/19/22 12:06 Oxygen Flow Rate 0 07/19/22 12:06 Sign Out <Trenton Gross MD - Last Filed: 07/19/22 14:59> Sign Out Data: Sign Out Comment: FOllowup DVT US, recheck p IVF Last updated by Trenton Gross MD at 07/19/22 15:05
--- OUTSIDE RECORDS SUMMARY | 2022-07-19 13:17 | XMS_ITS | Encounter Summary ---
:1940 Author Organization [facility] [place] [address] Care Team Providers Name Role Phone Bobby Das MD Primary Care Provider Encounter Details Date Type Department Care Team Description 06/19/2022 Telephone Cardiology at [facility] K[facility] Jimenez[facility] [place] [address] Social History Tobacco Use Types Packs/Day [...] Zamora: Requesting a referral to Cardiac Rehab [place] [facility] Forward to Dr Reid documented in this encounter Plan of Treatment Upcoming Encounters Date Type Specialty Care Team Description 08/08/2022 Office Visit Gastroenterology Negra Collins MD [facility] GASTROENTEROLOGY DEPT [place], [place] [address] (Wo rk) 09/05/2022 Appointment Cardiology Trinity Reid MD [facility] CARDIOLOGY [place], [place] [address] (Wo rk) 09/05/2022 Office Visit Cardiology Trinity Reid MD [facility] CARDIOLOGY [place], [place] [address] (Wo rk) documented as of this encounter Visit Diagnoses Not on filedocumented in this encounter Care Teams Butcher Helper Relationship Specialty Start Date End Date Bobby Das MD PCP - General 10/02/[address] [place] [address] [place] [address] documented as of this encounter
--- OUTSIDE RECORDS SUMMARY | 2022-07-19 13:17 | XMS_ITS | Encounter Summary ---
:1940 Author Organization [facility] [place] [address] Care Team Providers Name Role Phone Bobby Das MD Primary Care Provider Encounter Details Date Type Department Care Team Description 06/25/2022 Surgery Gastroenterology at [facility] Giovani Ponce, EGD, UPPER GI [facility] Bobby [place] [address] [facility] [phone] [place], [place] [address] Social History Tobacco Use Types [...] the day after the procedure, use an lwkw-lfb-qfjtfvf spray to numb your throat. Sucking on [...] occurs, please contact your Doctor. Please call [phone] before 8pm Mon-Fri with problems, questions or concerns. If you call after 8pm or on weekends, call the Hospital at [phone] and ask to speak to the Sugar Drier production pattern maker and the plasma processing centrifuge operator will contact that person for you. When should you call for help? Call [phone] anytime you think you may need emergency [...] any problems. Where can you learn more? [place] View your After Visit Summary and more online at [email or web address] If you would like to provide feedback about your hospital experience, please call the Office of Patient and Family Relations at . If you have received this After Visit Summary in error, please immediately return it in person to the department, or notify the [facility] Privacy Office by calling toll free at between the hours of 8AM and 5PM to arrange for our retrieval of the documents at no cost to you. Content Version: 12.2 ?? [id number] [employer]. Care instructions adapted under license by [facility]. If you have questions about a medical condition or this instruction, always ask your healthcare professional. [employer] disclaims any warranty or liability for [...] occurs, please contact your Doctor. Please call [phone] before 8pm Mon-Fri with problems, questions or concerns. If you call after 8pm or on weekends, call the Hospital at [phone] and ask to speak to the Sugar Drier production pattern maker and the plasma processing centrifuge operator will contact that person for you. When should you call for help? Call [phone] anytime you think you may need emergency [...] any problems. Where can you learn more? [place] View your After Visit Summary and more online at [email or web address] If you would like to provide feedback about your hospital experience, please call the Office of Patient and Family Relations at . If you have received this After Visit Summary in error, please immediately return it in person to the department, or notify the [facility] Privacy Office by calling toll free at between the hours of 8AM and 5PM to arrange for our retrieval of the documents at no cost to you. Content Version: 12.2 ?? [phone] [employer]. Care instructions adapted under license by [facility]. If you have questions about a medical condition or this instruction, always ask your healthcare professional. [employer] disclaims any warranty or liability for your [...] 21 (FLONASE) 50 mcg/actuation Nare route daily [place], Suspension as needed. fluorouraciL (EFUDEX) 5 % [...] ischemia I99.8 ??? Coronary artery disease involving [place] coronary artery of [place] heart without angina [id number] ??? HFrEF (heart failure with reduced ejection [...] MD [facility] GASTROENTEROLOGY DEPT [place], [place] [address] (Wo rk) 09/05/2022 Appointment Cardiology Trinity Reid MD [facility] CARDIOLOGY [place], [place] [address] (Wo rk) 09/05/2022 Office Visit Cardiology Trinity Reid MD [facility] CARDIOLOGY [place], [place] [address] (Wo rk) documented as of this [...] Component Value Ref Test Analysis Performed At [facility] Range Method Time Signature UPPER GI [facility] ENDOSCOPY Endoscopy Procedure Date: 06/25/2022 10:33 AM ? Patient Name: Koko Zamora ? Date of : 1940 ? Age: 81 ? Order #: [id number] ? Instrument Name: [id number]- [id number] ? Procedure: ? Upper GI endoscopy Indications: ? Recent gastrointestinal bleeding Providers: ? Giovani Ponce, Isi puente, ? Brissa Vee RN, Darrell ? Confalone Referring MD: ?[facility]: ? Propofol per Anesthesia Complications: ? No [...] Component Value Ref Test Analysis Performed At [facility] Method Time Signature COLONOSCOPY [facility] Endoscopy Procedure Date: 06/25/2022 10:33 AM ? Patient Name: Koko Zamora ? Date of : 1940 ? Age: 81 ? Order #: [id number] ? Instrument Name: EC-760P- [id number] ? Procedure: ? Colonoscopy Indications: ? Gastrointestinal [...] Procedure Code(s): ? --- Professional --- ? 43158, Colonoscopy, flexib le; with ? control of [...] of sigmoid ? colon CPT copyright 2021 [employer]. All rights reserved. The codes documented in this report are preliminary and upon md do resident urgent care review may be revised to meet current [...] Procedure) documented in this encounter Care Teams Carbonation Equipment Operator Relationship Specialty Start Date End Date Bobby Das MD PCP - General 10/02/[address] [place] [address] [place] [phone] documented as of this encounter
--- OUTSIDE RECORDS SUMMARY | 2022-07-19 13:17 | XMS_ITS | Encounter Summary ---
:1940 Author Organization [facility] [place] [address] Care Team Providers Name Role Phone Abby Das MD Primary Care Provider Encounter Details Date Type Department Care Team Description 06/25/2022 Anesthesia Event Gastroenterology at [facility] Abby Alfaro MD [facility] [place] [address] [facility] David Lewis CRNA [facility] [place] [address] [place] [address] Anesthesia Record Procedure Summary Procedure Name [...] the patient's medica l history, current anesthetic/surgi feliictas status and plan, according to the Provider [...] vein (antecubital fossa), Mame Peterson RN left; kzwq-aru-aiyljb catheter system; 18 gauge; Present on admission PIV 06/25/22; 1046; great 06/25/22 1046 by saphenous vein (medial side of Mame Peterson RN leg), right; vgys-foq-rrisjh catheter system; Anatomical Landmarks; 18 gauge; Present [...] Procedure Summary Date: 06/25/22 Room / Location: [facility] ENDO 4 / [facility] ENDOSCOPY Anesthesia Start: 1101 Anesthesia Stop: 1202 Procedures: EGD, UPPER GI ENDOSCOPY (N/A Trunk) COLONOSCOPY; W CONTROL OF BLEEDING, ANY METHOD (N/A Trunk) SMALL BOWEL ENTEROSCOPY (N/A Trunk) Diagnosis: (melena +./-) Surgeons: Giovani Ponce MD Responsible Provider: Abby Alfaro MD Anesthesia Type: MAC ASA Status: 3 All Anesthesia Providers: Anesthesiologist: Abby Alfaro MD EXPEDITIONARY [employer]S: David Gill CRNA Vitals Value Taken Time [...] Date Noted ??? Coronary artery disease involving [place] coronary artery of [place] heart without angina msbagulu28/04/2022 ??? HFrEF (heart failure with reduced ejection [...] IR Biopsy Spine 07/20/[address] [facility] INTERVENTIONL RAD ??? IR VERTEBROPLASTY LUMBAR MULTIPLE LEVELS 07/20/2019 IR Vertebroplasty Lumbar Multiple Levels 07/20/[address] [facility] INTERVENTIONL RAD ??? IR VERTEBROPLASTY THORACIC SINGLE LEVEL 10/25/2020 IR Vertebroplasty Thoracic Single Level 10/25/[address] [facility] INTERVENTIONL RAD ??? PRO EMBLC/THRMBC FEMORAL POPLITEAL AORTO-ILIAC ARTERY Left 05/15/2022 EMBOLECTOMY OR THROMBECTOMY, FEMOROPOPLITEAL, AORTOILIAC ARTERY BY LEG INCISION (WRVU 19.48) performed by Fito Summers MD at [facility] MAIN OR ??? PRO UPPER GI ENDOSCOPY, CTRL BLEED 05/31/2022 EGD, W CONTROL OF BLEEDING, ANY METHOD performed by Giovani Ponce MD at [facility] ENDOSCOPY ??? PRO UPPER GI ENDOSCOPY, DIAGNOSTIC N/A 05/31/2022 EGD, UPPER GI ENDOSCOPY performed by Giovani Ponce MD at [facility] ENDOSCOPY Social History Tobacco Use ??? [...] risks discussed with patient. Plan discussed with EXPEDITIONARY [employer]S. Anesthesia Screening documented in this encounter Plan of Treatment Upcoming Encounters Date Type Specialty Care Team Description 08/08/2022 Office Visit Gastroenterology Negra Collins MD [facility] GASTROENTEROLOGY DEPT [place], [place] [address] (Wo rk) 09/05/2022 Appointment Cardiology Trinity Reid MD [facility] CARDIOLOGY [place], [place] [address] (Wo rk) 09/05/2022 Office Visit Cardiology Trinity Reid MD [facility] CARDIOLOGY [place], [place] [address] (Wo rk) documented as of [...] mg documented in this encounter Care Teams Canine Deputy Relationship Specialty Start Date End Date Abby Das MD PCP - General 10/02/[address] [place] [address] [place] [phone] documented as of this encounter
--- OUTSIDE RECORDS SUMMARY | 2022-07-19 13:17 | XMS_ITS | Encounter Summary ---
:1940 Author Organization [facility] [place] [address] Care Team Providers Name Role Phone Bobby Das MD Primary Care Provider Encounter Details Date Type Department Care Team Description 07/01/2022 Telephone Dermatology at [facility], Zainab Dupree, RN [address] [place] [address] Social History Tobacco Use Types Packs/Day [...] [facility] GASTROENTEROLOGY DEPT [place], [place] [address] (Wo rk) 09/05/2022 Appointment Cardiology Trinity Reid MD [facility] CARDIOLOGY [place], [place] [address] (Wo rk) 09/05/2022 Office Visit Cardiology Trinity Reid MD [facility] CARDIOLOGY [place], [place] [address] (Wo rk) documented as of this encounter Visit Diagnoses Not on filedocumented in this encounter Care Teams Wool Grader Relationship Specialty Start Date End Date Bobby Das MD PCP - General 10/02/[address] [place] [address] [place] [phone] documented as of this encounter
--- OUTSIDE RECORDS SUMMARY | 2022-07-19 13:17 | XMS_ITS | Encounter Summary ---
:1940 Author Organization [facility] [place] [address] Care Team Providers Name Role Phone Bobby Das MD Primary Care Provider Encounter Details Date Type Department Care Team Description 06/25/2022 Hospital Encounter [place] [facility] [place] [facility] [place] [address] [facility] [phone] [place] [address] Social History Tobacco Use Types Packs/Day [...] the day after the procedure, use an gpns-mkj-klmzrun spray to numb your throat. Sucking on [...] occurs, please contact your Doctor. Please call [phone] before 8pm Mon-Fri with problems, questions or concerns. If you call after 8pm or on weekends, call the Hospital at [phone] and ask to speak to the Assistant Women'S Rowing Coach manager combination and the small brake form operator will contact that person for you. When should you call for help? Call [phone] anytime you think you may need emergency [...] any problems. Where can you learn more? [facility] View your After Visit Summary and more online at [email or web address] If you would like to provide feedback about your hospital experience, please call the Office of Patient and Family Relations at . If you have received this After Visit Summary in error, please immediately return it in person to the department, or notify the [facility] Privacy Office by calling toll free at between the hours of 8AM and 5PM to arrange for our retrieval of the documents at no cost to you. Content Version: 12.2 ?? 0714-2403 [employer]. Care instructions adapted under license by [employer] [facility]. If you have questions about a medical condition or this instruction, always ask your healthcare professional. [employer] disclaims any warranty or liability for your [...] occurs, please contact your Doctor. Please call [phone] before 8pm Mon-Fri with problems, questions or concerns. If you call after 8pm or on weekends, call the Hospital at [phone] and ask to speak to the Assistant Women'S Rowing Coach manager combination and the small brake form operator will contact that person for you. When should you call for help? Call [phone] anytime you think you may need emergency [...] any problems. Where can you learn more? [facility] View your After Visit Summary and more online at [email or web address] If you would like to provide feedback about your hospital experience, please call the Office of Patient and Family Relations at . If you have received this After Visit Summary in error, please immediately return it in person to the department, or notify the [facility] Privacy Office by calling toll free at between the hours of 8AM and 5PM to arrange for our retrieval of the documents at no cost to you. Content Version: 12.2 ?? [id number] [employer]. Care instructions adapted under license by [facility]. If you have questions about a medical condition or this instruction, always ask your healthcare professional. [employer] disclaims any warranty or liability for [...] 21 (FLONASE) 50 mcg/actuation Nare route daily [place], Suspension as needed. fluorouraciL (EFUDEX) 5 % [...] ischemia I99.8 ??? Coronary artery disease involving [place] coronary artery of [place] heart without angina [id number] ??? HFrEF (heart failure with reduced ejection [...] Collins MD [facility] GASTROENTEROLOGY DEPT [place], [place] [address] (Wo rk) 09/05/2022 Appointment Cardiology Trinity Reid MD [facility] CARDIOLOGY [place], [place] [address] (Wo rk) 09/05/2022 Office Visit Cardiology Trinity Reid MD [facility] ER DR CARDIOLOGY [place] [address] (Wo rk) documented as of this [...] Component Value Ref Test Analysis Performed At [facility] Range Method Time Signature UPPER GI [facility]OVATION ENDOSCOPY Endoscopy Procedure Date: 06/25/2022 10:33 AM ? Patient Name: Koko Zamora ? Date of : 1940 ? Age: 81 ? Order #: [id number] ? Instrument Name: [id number]- [id number] ? Procedure: ? Upper GI endoscopy Indications: ? Recent gastrointestinal bleeding Providers: ? Giovani Ponce, Isi puente, ? Brissa Vee RN, Juvenal ? Confalone Referring MD: ?[facility]: ? Propofol per Anesthesia [...] Endoscope w as ? introduced through the [facility], and ? advanced to the second [...] Component Value Ref Test Analysis Performed At [facility] Method Time Signature COLONOSCOPY [facility]ATION Endoscopy Procedure Date: 06/25/2022 10:33 AM ? Patient Name: Koko Zamora ? Date of : 1940 ? Age: 81 ? Order #: [id number] ? Instrument Name: [id number]- [id number] ? Procedure: ? Colonoscopy Indications: ? Gastrointestinal [...] Procedure Code(s): ? --- Professional --- ? 41811, Colonoscopy, flexib le; with ? control of [...] of sigmoid ? colon CPT copyright 202 [employer]. All rights reserved. The codes documented in this report are preliminary and upon burlap man review may be revised to meet [...] Procedure) documented in this encounter Care Teams Operator Bearer Systems Relationship Specialty Start Date End Date Bobby Das MD PCP - General 10/02/[address] [place] [address] [place] [id number] documented as of this encounter
--- OUTSIDE RECORDS SUMMARY | 2022-07-19 13:17 | XMS_ITS | Clinical Summary ---
:1940 Author Organization [facility] [place] [address] Care Team Providers Name Role Phone Bobby [...] 04/12/2021 Active (FLONASE) 50 mcg/actuation Each Nare Hart, Suspension route daily as needed. 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-D Limb ischemia 05/15/2022 History of basal cell carcinoma 05/31/2014 Basal cell carcinoma 03/29/2014 Verruca vulgaris 03/29/2014 AK (actinic keratosis) 03/29/2014 GIB (gastrointestinal bleeding) 06/28/2011 Overview: Secondary to 3-4 ASA/day, required admis lynette and blood transfusion MVP (mitral valve prolapse) s/p repair 06/28/2011 Overview: Surgery done at [facility] in 2 001 Hypertriglyceridemia 06/28/2011 [...] Hicks MD Coronary priscilla ry disease involving [place] coronary artery of [place] heart without angina pectoris 06/19/2022 Telephone Cardiology Kourtney Jimenez RN 06/17/2022 Orders Only Dermatology Loretta Cohen Basal cell c carlos Paez MD (BCC) of right forehead 06/13/2022 Office Visit Cardiology Jeanette, Coronary artery disease involving [place] coronary artery of [place] heart without angina pectoris; Alan Hicks MD [...] Gastroenterology Elmer Johnson MD Drost, Alexander J, WOODEN FRAME BUILDER 05/31/2022 Surgery Gastroenterology Giovani Ponce UPPE R GI M, MD ENDOSCOPY 05/31/2022 - Hospital Encounter Dominique Hinds GIB (g astrointestinal 06/02/2022 MD bleeding) (Primary Dx) Mahendra Victor MD Friedman, Harley P, MD Ratanamaneechat, Suphagaphan, MD 05/31/2022 Office Visit Vascular Surgery DavinaStephanie bellamyy Dizzy; B, BANK GUARD Atrial fibrilla tion, unspecified type; SOB (shortness of breath) 05/28/2022 Telephone Vascular Surgery Dominique Bolivar RN 05/24/2022 Telephone Cardiology Kourtney Jimenez RN 05/21/2022 Hospital Encounter Cardiology Paroxysma l atrial fibrillation 05/20/2022 Surgery Cardiology Abundio Servin MD CATHETERIZATION 05/15/2022 Anesthesia Event Surgery Cari Hernandez MD Patel, Shreena K, WOODEN FRAME BUILDER 05/15/2022 Surgery Surgery Fito Summers EMBOLECTOMY O [...] Gastroenterology Negra Collins MD [facility] GASTROENTEROLOGY DEPT [place], [place] 0[address] (Wo rk) 09/05/2022 Appointment Cardiology Trinity Reid MD [facility] CARDIOLOGY [place], [place] 0[address] (Wo rk) 09/05/2022 Office Visit Cardiology Trinity Reid MD [facility] CARDIOLOG[facility] [place], [place] 0375 (Wo rk) Health Maintenance Due [...] Component Value Ref Test Analysis Performed At [facility] Range Method Time Signature UPPER GI [facility] ENDOSCOPY Endoscopy Procedure Date: 06/25/2022 10:33 AM ? Patient Name: Koko Bah ? Date of : 1940 ? Age: 81 ? Order #: [id number] ? Instrument Name: [id number] ? Procedure: ? Upper GI endoscopy Indications: [...] [facility] Method Time Signature COLONOSCOPY [facility] Endoscopy Procedure Date: 06/25/2022 10:33 AM ? Patient Name: Koko Bah ? Date of : 1940 ? Age: 81 ? Order #: [id number] ? Instrument Name: [id number]- [id number] ? Procedure: ? Colonoscopy Indications: ? Gastrointestinal [...] Procedure Code(s): ? --- Professional --- ? 46527, Colonoscopy, flexib le; with ? control of [...] of sigmoid ? colon CPT copyright 2020 [employer]. All rights reserved. The codes documented in this report are preliminary and upon rn maternal child review may be revised to meet current [...] Component Value Ref Test Analysis Performed At [facility] Range Method Time Signature VB Text Department: Vascular Surgery Lab VASCUBASE Report Patient: [id number] (KOKO BAH) CPT: 70437 Referring Physician: FITO SUMMERS ?? 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 Diabetes mellitus: no Findings: Right ?Pressure [...] Summers MD VASCULAR ORDERABLES Performing Organization Address City/[facility]/ZIP Code Phon e Number VASCUBASE Specimen to Pathology (06/10/2022 1:20 PM EDT) Specimen Anatomical Collection Method Collection Time Receive d Time (Source) Location / / Volume Laterality AP Specimen 06/10/2022 1:20 PM 1:20 EDT PM EDT Narrative [facility] LABORAT ORY - 06/10/2022 1:20 PM EDT Specimen requisition ordered. ??Separate Pathology report to follow Loretta Cohen MD PATHOLOGY/CYTOLOGY ORDERABLE S Performing Organization Address [facility] [place] [address] [facility] [address] Surgical Pathology Report (06/10/2022 11:43 AM EDT) Component Value Ref Test Analysis Performed At [facility] Range Method Time Signature Surgical [id number] ? Location: [facility] Report The signing pathologist has (i) examined the relevant preparation(s) for the [facility] specimen(s) and (ii) rendered or confirmed the diagnosis(es) . HOSPITAL LABORATORY . ?Surgic al Pathology DIAGNOSIS Right lateral eyebrow, skin shave biopsy: - ??Basal cell carcinoma, no dular pattern, transected at the peripheral and deep specimen edges Electronically signed by: ?Delroy CARCAMO, PhD, Ian Verified: ??06/12/2022 14:33 ??Dermatopathologist Performed at: ??-[facility] Dept. of Pathology, [place], [place] SPECIMEN(S) SUBMITTED A - right lateral [...] Organization Address City/State/ZIP Code Phon e Number [place] [id number] (ABNORMAL) Hemogram (06/02/2022 8:20 AM EDT)Only the most recent of14 results within the time period is included. Analysis Performed At Patho logist Time Signature WBC 7.2 4.0 - 9.5 [facility] x10(3)/[facility] LABORATORY RBC 2.74 (L) 4.58 - [facility] 5.54 [facility] x10(6)/[facility] LABORATORY Hemoglobin 8.7 (L) 13.7 - [place] 16.5 g/dL [facility] LABORATORY Hematocrit 25.7 (L) 40.5 - [facility] 48.5 % [facility] LABORATORY MCV 93.8 (H) 82.9 - [place] [facility] 93.1 [facility] LABORATORY MCH 31.8 27.5 - [employer] 32.1 pg [facility] LABORATORY MCHC 33.9 32.0 - [place] [facility] 35.7 g/dL [facility] LABORATORY Platelets 260 145 - 357 [facility] [employer] x10(3)/[facility] LABORATORY RDWSD 51.0 (H) 36.0 - [place] [facility] 45.0 [facility] LABORATORY RDWCV 14.9 (H) 11.4 - [facility] 13.8 % [facility] LABORATORY MPV 10.0 7.6 - 12.9 [facility] nRBC % Auto 0.0 % [facility] LABORATORY nRBC Abs Auto 0.000 0.000 - [facility] 0.000 [facility] x10(3)[facility] LABORATORY Specimen Anatomical Collection Method Collection Time Receive d Time (Source) Location / / Volume Laterality Blood 06/02/2022 8:20 AM 8:25 EDT AM EDT Resulting Agency Comment Spec In Lab Kurt Ames MD HEMATOLOGY ORDERABLES Performing Organization Address City/State/[place] [address] (ABNORMAL) Differential, Automated (06/02/2022 8:20 AM EDT)Only the most recent of14 resultswithin the time period is included. P athologist Signature Neutrophils % 61.3 % [facility] LABORATORY Neutr Abs (ANC) 4.44 1.70 - [facility] 6.10 [facility] x10(3)[facility] LABORATORY Lymphocytes % 25.2 % [facility] LABORATORY Lymphocytes Abs 1.8 0.9 - 3.2 [facility] x10(3)[facility] LABORATORY Monocytes % 10.0 % [facility] LABORATORY Monocyte Abs 0.7 0.3 - 0.9 [facility] x10(3)[facility] LABORATORY Eosinophils % 2.1 % [facility] LABOR[facility]ORY Eosinophils Abs 0.2 0.0 - 0.4 [facility] x10(3)[facility] LABORATORY Basophils % 0.7 % [facility] LABORATORY Basophils Abs 0.0 0.0 - 0.1 [facility] x10(3)[facility] LABORATORY Immature Gran % 0.70 % [facility]ORY Comment: Immature granulocytes(IG's)percentage an d absolute count will include metamyelocytes, myelocytes, and promyelo cytes. Blood smears from CBCs yielding IG's will be scanned manually for concor dance. If this scan disagrees with the automated IG or if promyelocytes are not ed, a manual differential will be performed. Rain Gran Abs 0.05 (H) 0.00 - 0.04 x10(3)/mcL [facility] LABORATORY Specimen Anatomical Collection Method Collection Time Receive d Time (Source) Location / / Volume Laterality Blood 06/02/2022 8:20 AM 2 8:25 EDT AM EDT Resulting Agency Comment Spec In Lab Kurt Ames MD HEMATOLOGY ORDERABLES Performing Organization Address City/State/ZIP Code Phon e Number [address] Heparin (unfractionated) Level (06/02/2022 6:30 AM EDT)Only the most recent of11 resultswithin the time period is included. athologist Signature Heparin UFH 0.39 IU/mL [facility] LABORATORY Comment: Heparin (anti-Xa) levels should [...] Address City/State/ZIP Code Phon e Number [address] Magnesium (06/02/2022 12:30 AM EDT)Only the most recent of5 resultswithin the time period is included. athologist Signature Magnesium 0.83 0.69 - 1.07 [facility] mmol/L [facility] LABORATORY Specimen Anatomical Collection Method Collection Time Receive d Time (Source) Location / / Volume Laterality Blood 06/02/2022 12:30 06/02/2022 AM EDT 12:40 AM EDT Resulting Agency Comment Spec In Lab Mahendra Victor MD CHEMISTRY ORDERABLES Performing Organization Address City/State/[place] [address] (ABNORMAL) Basic Metabolic Panel (non-fasting) (06/02/2022 12:30 AM EDT)Only the most recent of6 resultswithin the time period is included. athologist Signature Glucose Lvl 151 65 - 199 [facility] mg/dL [facility] LABORATORY Comment: Diabetes: >=200 mg/dL plus [...] LABORATORY Estimated GFR 93 >=60 mL/min/1.73 m?? [facility] LABORATORY [...] Organization Address City/State/[place] [address] SCAN DOC: TELEMETRY STRIPS (06/01/2022 8:37 PM EDT)Only the most recent of8 resultswithin the time period is included. Narrative This result has an attachment that is no t available. Unknown MEDIA MGR SCAN EXT ORDR/RSLT (ABNORMAL) Urinalysis with reflex Culture (06/01/2022 4:00 AM EDT)Only the most recent of2 resultswithin the time period is included. [facility] gist Method Time Signature Glucose UA 500 Negative [facility] (Critical) mg/dL [facility] LABORATORY Comment: Urinalysis result NOT critical without a combination of Glucose greater than or equal to 500 mg/dL AND Ketones greate r than or equal to 80 mg/dL Protein UA Negative Negative mg/dL [facility] LABORATORY Bilirubin UA Negative Negative mg/dL [facility] LABORATORY Comment: Clinical correlation required for [...] [facility] LABORATORY Blood UA Negative Negative mg/dL [facility]ORY Ketones UA Negative Negative mg/dL [facility] Nitrite UA Negative Negative [facility] LABORATORY Leukocytes UA Negative Negative mcL [facility] LABORATORY Appearance UA Clear Clear [facility] LABORATORY Spec [place] UA >=1.030 (A) 1.005 - 1.030 [facility] LABORATORY Color UA Yellow Yellow [facility] LABORATORY Culture Reflexed No [facility] LABORATORY Specimen Anatomical Collection Method Collection Time Receive d Time (Source) Location / / Volume Laterality Clean Catch 06/01/2022 4:00 AM 4:26 Urine EDT AM EDT Resulting Agency Comment Spec In Lab Mahendra Victor MD URINE ORDERABLES Performing Organization Address City/State/[place] [address] Transfuse RBC (05/31/2022 7:36 PM EDT) Dominique Hinds MD NURSING TREATMENT ORDERABLES - BLOOD ADMIN UPPER GI ENDOSCOPY (05/31/2022 3:37 PM EDT) Component Value Ref Test Analysis Performed At [facility] Range Method Time Signature UPPER GI [facility] ENDOSCOPY Endoscopy Procedure Date: 05/31/2022 3:37 PM ? Patient Name: Koko Bah ? Date of : 1940 ? Age: 81 ? Order #: [id number] ? Instrument Name: [id number] ? Procedure: ? Upper GI endoscopy Indications: [...] Endoscope w as ? introduced through the [facility], and ? advanced to the fourth [...] Procedure Code(s): ? --- Professional --- ? 56715, Esophagogastroduode noscopy, ? flexible, transoral; with control [...] stomach ? and duodenum CPT copyright 2020 [employer]. All rights reserved. The codes documented in this report are preliminary and upon rn maternal child review may be revised to meet current [...] who have questions please contact the health transitional care liaison that requested your imaging first. ? Narrative 05/31/2022 2:39 PM EDT EXAMINATION: CT ABDOMEN AND PELVIS [facility] CONTRAST (GI BLEED) CLINICAL HISTORY: Significant Hb drop. U nknown source. has had a [facility] with stent placed and revascularization of left low er extremity within the past two weeks, recently on anticoagulation Unknown source of bleeding TECHNIQUE: Helical CT of the abdomen and pelvis was performed before and after the intravenous administration contrast utilizing GI bleed protocol. Administered 125.0 ml of OMNIPAQUE 350.0 0 mg/ml. Oral contrast was not administered. COMPARISON: 05/15/[address] [facility] FINDINGS: GI Tract: Pre-contrast: No bowel [...] enlarged lymph nodes. Vasculature: Patent common iliac, telemetry rn al iliac, and common femoral arteries bilaterally. [...] the original. EXAMINATION: CT ABDOMEN AND PELVIS [facility] (GI BLEED) CLINICAL HISTORY: Significant Hb drop. [...] contrast was not administered. COMPARISON: 05/15/[address] [facility] FINDINGS: GI Tract: Pre-contrast: No bowel [...] enlarged lymph nodes. Vasculature: Patent common iliac, telemetry rn al iliac, and common femoral arteries bilaterally. [...] ho have questions please contact the health transitional care liaison that requested your imaging first. Dominique Hinds MD IMG CT ORDERABLES Type and Screen Validity (05/31/2022 1:43 PM EDT)Only the most recent of2 resultswithin the time period is included. [facility] Method Time Signature T&S only valid [facility] LABORATORY Comment: This Type and Screen result is only valid at the [facility] Specimen Anatomical Collection Method Collection Time Receive d Time (Source) Location / / Volume Laterality Blood 05/31/2022 1:43 PM 2 1:57 EDT PM EDT Resulting Agency Comment Spec In Lab Dominique Hinds MD BLOOD BANK ORDERABLES Performing Organization Address City/State/[place] [address] ABORH Recheck Status (05/31/2022 1:43 PM EDT)Only the most recent of2 results within the time period is included. [facility] Method Time Signature ABORH Type Completed [facility] LABORATORY Specimen Anatomical Collection Method Collection Time Receive d Time (Source) Location / / Volume Laterality Blood 05/31/2022 1:43 PM 2 1:57 EDT PM EDT Resulting Agency Comment Spec In Lab Dominique Hinds MD BLOOD BANK ORDERABLES Performing Organization Address City/[facility]/ZIP [place] [address] ABO/Rh Typing (05/31/2022 1:43 [...] BLOOD BANK ORDERABLES Performing Organization Address [facility]/ZIP [place] [address] Antibody screen (05/31/2022 1:43 PM EDT)Only the most recent of2 resultswithin the time period is included. Patholo gist Method Time Signature Ab Screen Negative [facility] LABORATORY Expires at 06/03/2022 [facility] [id number] on: [facility] LABORATORY Specimen Anatomical Collection Method Collection Time Receive d Time (Source) Location / / Volume Laterality Blood 05/31/2022 1:43 PM 2 1:57 EDT PM EDT Resulting Agency Comment Spec In Lab Dominique Hinds MD BLOOD BANK ORDERABLES Performing Organization Address City/[facility]/ZIP Code Phon e Number [address] Prepare RBC (05/31/2022 1:35 PM EDT)Only the most recent of2 resultswithin the time period is included. P athologist Signature Dispensed? Yes [facility] LABORATORY Specimen Anatomical Collection Method Collection Time Receive d Time (Source) Location / / Volume Laterality Blood 05/31/2022 1:35 PM 2 1:30 EDT PM EDT Dominique Hinds MD BLOOD BANK ORDERABLES Performing Organization Address City/State/[place] [address] (ABNORMAL) BLOOD GAS 2 VENOUS (05/31/2022 11:24 AM EDT) P athologist Signature pH Marco Antonio 7.38 7.32 - [facility] 7.42 [facility] LABORATORY pCO2 [place] 40 (L) 41 - 51 [facility] LABORATORY pO2 [place] 18 (L) 25 - 40 [facility] LABORATORY HCO3 [place] 23.3 mmol/L [facility] LABORATORY BE Marco Antonio -1.8 mmol/L [facility] LABORATORY Hgb Blood Gas 7.0 (L) 13.7 - [facility] 16.5 g/dL [facility] LABORATORY O2HB [place] 24.3 % [facility] LABORATORY COHB [place] 1.4 % [facility] LABORATORY Comment: Nonsmokers: 0.5-1.5% COHB Smokers: Variable, but usually less than 10% Toxic: 20-30% COHB Lethal: Greater than 60% COHB METHB [place] 1.7 (H) <=1.5 % [facility] LABORATORY Na Whole Blood 137 135 - 145 mmol/L [facility] LABORATORY K Whole Blood 3.9 3.5 - 5.0 mmol/L [facility] LABORATORY Comment: Please note: Patients with WBC >100,000 may have falsely elevated Potassium levels. Contact the Clinical Chemistry L aboratory if there are any questions. ICa Whole Blood 1.19 1.15 - 1.33 mmol/L [facility] LABORATORY Comment: Note: ??Total bilirubin higher than 20 m g/dL may lead to falsely low ionized calcium. CL Whole Blood 107 98 - 107 mmol/L [facility] LABORATORY Gluc Whole Bld 204 (H) 65 - 199 mg/dL [facility] LABORATORY Comment: Diabetes: >=200 mg/dL plus symp toms Lactate WB 1.4 0.5 - 2.2 mmol/L [facility] LABORATORY BGas Source Venous [facility] LABORATORY Specimen Anatomical Collection Method Collection Time Receive d Time (Source) Location / / Volume Laterality Blood 05/31/2022 11:24 05/31/2022 AM EDT 11:24 AM EDT Dominique Hinds MD CHEMISTRY ORDERABLES Performing Organization Address City/[facility]/ZIP Code Phon e Number [address] TSH [place] (05/31/2022 11:20 AM EDT) P athologist Signature TSH 1.67 0.27 - 4.20 [facility] mcIU/mL [facility] LABORATORY Comment: Reference Interval (mcIU/mL): Females: ??First Trimester: 0.23-3.88 ??Second Trimester: 0.22-3.90 ??Third Trimester: 0.44-4.66 Specimen Anatomical Collection Method Collection Time Receive d Time (Source) Location / / Volume Laterality Blood 05/31/2022 11:20 05/31/2022 AM EDT 11:28 AM EDT Resulting Agency Comment Spec In Lab Dominique Hinds MD CHEMISTRY ORDERABLES Performing Organization Address City/[facility]/ZIP Code Phon e Number [address] XR Chest PA & [...] who have questions please contact the health transitional care liaison that requested your imaging first. ? Electronically signed by: Alan strong MD, [facility] ([phone]), at 05/31/2022 11:33 AM Narrative 05/31/2022 11:33 [...] ho have questions please contact the health transitional care liaison that requested your imaging first. Dominique Hinds MD IMG DX ORDERABLES Blue Tube HOLD (05/31/2022 10:50 AM EDT) athologist Signature Blue Hold Sample in [facility] lab. [facility] LABORATORY Specimen Anatomical Collection Method Collection Time Receive d Time (Source) Location / / Volume Laterality Blood Venous Draw / 05/31/2022 10:50 05/31/2022 Unknown AM EDT 11:05 AM EDT Brittany Ramirez MD HEMATOLOGY ORDERABLES Performing Organization Address City/State/[place] [address] Troponin (05/31/2022 10:50 AM EDT) athologist Signature Troponin-T <0.01 0.00 - 0.00 [facility] ng/mL [facility] LABORATORY Comment: The 99th percentile for [...] additional sample may be indicated. Reference: Third [place] Definition of Myocardial Infarction. Journal of the [place] 2012;60:1581-98 Specimen Anatomical Collection Method Collection Time Receive d Time (Source) Location / / Volume Laterality Blood 05/31/2022 10:50 05/31/2022 AM EDT 11:03 AM EDT Resulting Agency Comment Spec In Lab Dominique Hinds MD CHEMISTRY ORDERABLES Performing Organization Address City/State/ZIP Code Phon e Number [address] Phosphorus (05/31/2022 10:50 AM EDT)Only the most recent of2 resultswithin the time period is included. P athologist Signature Phosphorus 3.2 2.5 - 4.5 [facility] [place] mg/dL [facility] LABORATORY Specimen Anatomical Collection Method Collection Time Receive d Time (Source) Location / / Volume Laterality Blood 05/31/2022 10:50 05/31/2022 AM EDT 11:03 AM EDT Resulting Agency Comment Spec In Lab Dominique Hinds MD CHEMISTRY ORDERABLES Performing Organization Address City/[facility]/ZIP Code Phon e Number [address] (ABNORMAL) pro-Brain Natriuretic Peptide (05/31/2022 10:50 AM EDT) P athologist Signature ProBNP 1,077 (H) <=449 [facility] pg/mL [facility] LABORATORY Specimen Anatomical Collection Method Collection Time Receive d Time (Source) Location / / Volume Laterality Blood 05/31/2022 10:50 05/31/2022 AM EDT 11:03 AM EDT Resulting Agency Comment Spec In Lab Dominique Hinds MD CHEMISTRY ORDERABLES Performing Organization Address City/[facility]/ZIP Code Phon e Number [address] Lipase (05/31/2022 10:50 AM EDT) P athologist Signature Lipase 41 0 - 60 [facility] unit/L [facility] LABORATORY Specimen Anatomical Collection Method Collection Time Receive d Time (Source) Location / / Volume Laterality Blood Venous Draw / 05/31/2022 10:50 05/31/2022 Unknown AM EDT 11:11 AM EDT Resulting Agency Comment Spec In Lab Zain Champion MD CHEMISTRY ORDERABLES Performing Organization Address City/[facility]/ZIP [place] [address] (ABNORMAL) Hepatic Function Panel (05/31/2022 10:50 AM EDT) Analysis Performed At Patho logist Time Signature Total Protein 6.4 6.1 - 8.0 [place] g/dL [facility] LABORATORY Albumin 4.1 3.2 - 5.2 [facility] g/dL [facility] LABORATORY AST 24 0 - 39 [facility] unit/L [facility] LABORATORY ALT 44 0 - [facility] unit/L [facility] LABORATORY Alk Phos 63 40 - 130 [facility]/L [facility] LABORATORY Total <0.2 (L) 0.2 - 1.3 [facility] Bilirubin mg/dL [facility] Bili, Direct 0.1 0.0 - 0.3 [facility] XIAO mg/dL [facility] Specimen Anatomical Collection Method Collection Time Receive d Time (Source) Location / / Volume Laterality Blood Venous Draw / 05/31/2022 10:50 05/31/2022 Unknown AM EDT 11:11 AM EDT Resulting Agency Comment Spec In Lab Zain Champion MD CHEMISTRY ORDERABLES Performing Organization Address City/[facility]/ZIP [place] [address] EKG 12 Lead (05/31/2022 10:11 AM EDT)Only the most recent of3 resultswithin the time period is included. Component Value Ref Range Test Analysis Performed Pathologis t Method Time At Signature Ventricular rate 106 BPM MUSE SYSTEM QRS Duration 122 ms MUSE SYSTEM Q-T Interval 368 ms MUSE SYSTEM QTC Calculated 488 ms MUSE SYSTEM (Bezet) Calculated R Floyd -43 degrees MUSE SYSTEM Calculated T Floyd 109 degrees MUSE SYSTEM INTERPRETATION Atrial fibrillation with rapid ventricular response MUSE SYSTEM Left axis deviation Minimal voltage criteria for LVH, may be normal variant ( [place] product ) Cannot rule out Anterior infarct , age undetermined Abnormal ECG When compared with ECG of 20-MAY-2022 19:04, No significant change was found I personally reviewed the tracing and edited the fellows int erpretation Confirmed by fellow MD Mike, [place] ([id number]) on 022 8:36:21 PM Confirmed by MD [...] Laterality Volume Narrative 05/20/2022 7:09 PM EDT ?[facility] ? Cardiac Cathete rization/Intervention Report ? Patient Name: Koko Bah. ? Procedure Date: 05/20/2022 ? A #: [id number] ? Primary Physician: Malathi, Abundio S ? Case #: [id number] ? File Name: [id number] ? Catheterization Order Number: [id number] ? [facility] ? Final Report [place], [place] ? Patient Name: ? Koko J. Klarissa uson ? ID#: ?[id number] ? : ?1940 ? Procedure Date: ? [...] was Urgent. The indication for ?the labor specialist visit is cardiomyo nita. Chest pain symptom [...] ?3.5 guiding catheter and a 3.5 Fr [facility] [address] ??20 Mhz. ??Imaging ?was successful. ??Image [...] premounted 2. 75 x 30 mm Rudy Arenac (AMPARO) was deployed ? with a maximum [...] may require ?modification of this regimen. [facility] Interventional Cardiology for ?questions. ?The 1 year [...] note might be different from the original. [facility] Cardiac Catheterization/Intervention Re port Patient Name: Koko Bah Procedure Date: 05/20/2022 A #: [id number] Primary Physician: Abundio Servin Case #: File Name: [id number] Catheterization Order Number: [id number] [facility] Sifting Operator [facility] Final Report [place], [place] Patient Name: Koko Bah ID#: [id number] : 1940 Procedure Date: May 20, 2022 [...] designated a s ASA Class IV. The [facility] clinical frailty scale is 3: Managing [...] e was Urgent. The indication for the labor specialist visit is cardiomyopathy. C hest pain symptom [...] 3.5 guiding catheter and a 3.5 [address] [facility] [address] 20 Mhz. Imaging was successful. Image [...] atmospheres. A premounted 2.75 x 30 mm [place] Arenac (AMPARO) was deployed with a maximum inflation [...] require modification of this regimen. Consult D [facility] Interventional Cardiology for questions. The [...] 123 65 - 199 ILDA XIAO mg/dL [facility] Comment: Supplemental ranges: <140 mg/dL before meals <180 mg/dL all other times of the day Specimen Anatomical Collection Method Collection Time Receive d Time (Source) Location / / Volume Laterality Blood 05/20/2022 5:42 PM 2 5:42 EDT PM EDT Fito Summers MD POINT OF CARE TEST ORDERABLE S Performing Organization Address City/State/ZIP [place] [address] (ABNORMAL) BMP w/fasting Glucose (05/20/2022 10:50 AM EDT) P athologist Signature Glucose 152 (H) 65 - 99 [facility] Fasting mg/dL [facility] Comment: ?Fasting* Glucose Interpretive C [...] of Diabetes Mellitus, Position Statement from the [place] [employer]. ??Diabete s Care, Volume 33, [...] City/[facility]/ZIP Code Phon e Number [address] TSH (05/18/2022 8:00 PM EDT) P athologist Signature TSH 2.27 0.27 - 4.20 [facility] mcIU/mL [facility] Comment: Reference Interval (mcIU/mL): Females: ??First Trimester: 0.23-3.88 ??Second Trimester: 0.22-3.90 ??Third Trimester: 0.44-4.66 Specimen Anatomical Collection Method Collection Time Receive d Time (Source) Location / / Volume Laterality Blood 05/18/2022 8:00 PM 8:06 EDT PM EDT Resulting Agency Comment Spec In Lab Fito Summers MD CHEMISTRY ORDERABLES Performing Organization Address [facility]/ZIP [facility] [place] [address] (ABNORMAL) Urinalysis Microscopic Exam [...] Patiño MD URINE ORDERABLES Performing Organization Address City/[facility]/ZIP [facility] Phon e Number [address] XR Chest One View [...] who have questions please contact the health transitional care liaison that requested your imaging first. ? Electronically signed by: Tiffanie George MD , [facility] ([phone]), at 05/16/2022 9:27 PM Narrative 05/16/2022 9:27 [...] ho have questions please contact the health transitional care liaison that requested your imaging first. Electronically signed by: Tiffanie George MD , [facility] ([phone]), at 05/16/2022 9:27 PM Fito Summers MD IMG DX ORDERABLES ECHOCARDIOGRAM COMPLETE W CONTRAST (05/16/2022 12:49 PM EDT) P athologist Signature EF 28 [facility] Anatomical Region Laterality Modality Cardiac Other Specimen (Source) Anatomical Collection Method Collection Time Re ceived Time Location / / Volume Laterality 05/16/2022 11:22 AM EDT Narrative 05/16/2022 1:54 PM EDT ?[facility] ?[address] ? [place] [address] ?Voice: ?Fax: ? Echocardiogram Report Name: KOKO BAH ?Study Date: 05/16/2022 11:22 AM ? Patient Location: [address] [place], [place] [address] : 1940 ? Height: 67.5 in ? Account: [id number] Age: 81 yrs ? Weight: 176 lb [...] and LV systolic dysfunction are new. Procedure Complete-11816. Image enhancement Optiso n was used for [...] might be different from the original. [facility] [address] [place] [address] Voice: Fax: Echocardiogram Report Name: KOKO BAH Study Date: 05/2022 11:22 AM Patient Location: [address] [place] [address] : 1940 Height: 67.5 in Account: [id number] Age: 81 yrs Weight: 176 lb Gender: Male BSA: 1.9 m2 Ordering Physician: FITO SUMMERS Referring Physician: MALI FLORIAN Performed By: Jolene Bernard [facility] Exam Location: [facility]. Interpretation [...] and LV systolic dysfunction are new. Procedure Complete-56849. Image enhancement Optiso n was used for [...] Art 7.33 (L) 7.35 - [facility] 7.45 [facility] pCO2 Art 41 35 - 45 [facility] mmHg [facility] pO2 Art 131 (H) 85 - 104 [facility] HCO3 Art 21.1 20.0 - [facility] 26.0 [facility] mmol/L [facility] BE Art -4.8 (L) -3.0 - 3.0 [facility] mmol/L [facility] Hgb Blood Gas 13.4 (L) 13.7 - [facility] 16.5 g/dL [facility] O2HB Art 96.9 94.0 - [facility] 97.0 % [facility] COHB Art 1.4 % [facility] [...] Whole Bld 136 65 - 199 mg/dL [facility] Comment: Diabetes: >=200 mg/dL plus symp toms. Lactate WB 2.0 0.5 - 2.2 mmol/L [facility] Specimen Anatomical Collection Method Collection Time Receive d Time (Source) Location / / Volume Laterality Blood 05/15/2022 3:33 PM 3:[address] Jamel Torre MD CHEMISTRY ORDERABLES Performing Organization Address City/State/[place] [address] (ABNORMAL) APTT (05/15/2022 12:30 [...] EDT Resulting Agency Comment Spec In [facility] HEMATOLOGY ORDERABLES Performing Organization Address City/[facility]/ZIP [facility] Phon e Number [address] (ABNORMAL) Prothrombin Time (05/15/2022 12:30 PM EDT) P athologist Signature PT 12.9 (H) 9.4 - 12.5 [facility] LABORATORY INR 1.1 [facility] [...] Resulting Agency Comment Spec In Lab [facility] HEMATOLOGY ORDERABLES Performing Organization Address City/[facility]/[place] [address] Gold Tube HOLD (05/15/2022 12:20 PM EDT) athologist Signature Gold Hold Sample in [facility]. [facility] Specimen Anatomical Collection Method Collection Time Receive d Time (Source) Location / / Volume Laterality Blood No Charge / 05/15/2022 12:20 05/15/2022 Unknown PM EDT 12:20 PM EDT Lc TRIPP CHEMISTRY ORDERABLES Performing Organization Address City/State/[place] [address] CK (05/15/2022 12:00 PM EDT) P athologist Signature CK, Total 87 0 - 200 [facility] unit/L [facility] Specimen Anatomical Collection Method Collection Time Receive d Time (Source) Location / / Volume Laterality Blood Venous Draw / 05/15/2022 12:00 05/15/2022 Unknown PM EDT 12:19 PM EDT Resulting Agency Comment Spec In Lab Fito Summers MD CHEMISTRY ORDERABLES Performing Organization Address City/[facility] [place] [address] Film Library- Storage Only CT Abdomen (05/15/2022 9:32 AM EDT) Specimen (Source) Anatomical Location Collection Method / Collectio n Time Received Time / Laterality Volume Narrative RAD - 05/15/2022 9:32 AM EDT This exam is auto-finalizing. It's purpo se is for storage only. Matt Branham MD [facility] FILM LIBRARY ORDERABLES Performing Organization Address [facility] Code Phon e Number [place], [place] Film Library- Storage Only DX Chest (05/15/2022 9:31 AM EDT) Specimen (Source) Anatomical Location Collection Method / Collectio n Time Received Time / Laterality Volume Narrative RAD - 05/15/2022 9:31 AM EDT This exam is auto-finalizing. It's purpo se is for storage only. Matt Branham MD IM FILM LIBRARY ORDERABLES Performing Organization Address City/[facility]/ZIP Code Phon e Number [place], [place] from Last 3 Months Insurance Payer Benefit Plan / Subscriber ID Effective Phone Address T ype Group Dates MEDICARE MEDICARE PART A [id number] 2007-Pres [phone] [facility] [place] [phone] [facility] [id number] 2007-Pres [phone] [address] [facility] ent [address] [place] [address] Advance Directives Latest Code Status on File [...] capacity to make decision: Yes Care Teams Preparation Supervisor Relationship Specialty Start Date End Date Bobby Das MD PCP - General 10/02/[address] [place] [address] [place] [phone]
--- OUTSIDE RECORDS SUMMARY | 2022-07-19 13:17 | XMS_ITS | Encounter Summary ---
:1940 Author Organization [facility] Address [facility] [place] [address] Care Team Providers Name Role Phone Bobby Das MD Primary Care Provider Encounter Details Date Type Department Care Team Description 06/24/2022 Telephone Gastroenterology at [facility] Alan August MD [facility] [place] [address] GASTROENTEROLOGY DEPT [phone] [place], [place] [address] (Wo rk) Social History [...] data. [facility]. [...] Negra Collins MD [facility] GASTROENTEROLOGY DEPT [place], [place] [address] (Wo rk) 09/05/2022 Appointment Cardiology Trinity Reid MD [facility] CARDIOLOGY [place], [place] [address] (Wo rk) 09/05/2022 Office Visit Cardiology Trinity Reid MD [facility] CARDIOLOGY [place], [place] [address] (Wo rk) documented as of this encounter Visit Diagnoses Not on filedocumented in this encounter Care Teams Precision Optics Technician Relationship Specialty Start Date End Date Bobby Das MD PCP - General 10/02/[address] [place] [address] [place] [phone] documented as of this encounter
--- OUTSIDE RECORDS SUMMARY | 2022-07-19 13:17 | XMS_ITS | Encounter Summary ---
:1940 [place] [address] Care Team Providers Name Role Phone Bobby Das MD Primary Care Provider Encounter Details Date Type Department Care Team Description 06/13/2022 Tech Visit Vascular Lab at [facility], Dominga [place] [address] Social History Tobacco Use Types Packs/Day [...] Negra Collins MD [facility] DR GASTROENTEROLOGY DEPT [place], [place] [address] (Wo rk) 09/05/2022 Appointment Cardiology Trinity Reid MD [facility] CARDIOLOGY [place], [place] [address] (Wo rk) 09/05/2022 Office Visit Cardiology Trinity Reid MD [facility] CARDIOLOGY [place], [place] [address] (Wo rk) documented as of this encounter Procedures Procedure Name Priority Date/Time Associated Diagnosis Comme nts JOSSELYN, LEGS, MULTIPLE Routine 06/13/2022 7:13 AM Limb ischemia R esults for this LEVELS EDT procedure are i n the results section. documented in this encounter Results JOSSELYN, legs, multiple levels (06/13/2022 7:13 AM EDT) Component Value Ref Test Analysis Performed At [facility] Range Method Time Signature VB Text Department: Vascular Surgery Lab VASCUBASE Report Patient: [id number] (ETTA BAH) CPT: 40046 Referring Physician: FITO SUMMERS ?? 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 Diabetes mellitus: no Findings: Right [...] disorder documented in this encounter Care Teams Mold Maker Plastic Molds Relationship Specialty Start Date End Date Bobby Das MD PCP - General 10/02/[address] [place] [address] [place] [phone] documented as of this encounter
--- OUTSIDE RECORDS SUMMARY | 2022-07-19 13:17 | XMS_ITS | Encounter Summary ---
:1940 Author Organization [facility] [place] [address] Care Team Providers Name Role Phone Bobby Das MD Primary Care Provider Reason for Referral Diagnostic Test (Routine) - Authorized Specialty Diagnoses / Procedures Referred By Contact Refer red To Contact Cardiology Diagnoses HFrEF (heart failure with reduced ejection fraction) Alan Reid MD [facility] Non-Inv Card Lab Procedures [place]chocardi[place] [address] [place] [address] Fax: Referral ID Status Reason Start Expiration Visits Visits Date Date Requested Authorized [id number] Authorized Specialty 06/13/2022 06/13/2023 1 1 Service Requested Reason for Visit Consultation (Routine) - Closed Specialty Diagnoses / Procedures Referred By Contact Refer red To Contact Cardiology Diagnoses HFrEF (heart failure with reduced ejection fraction) Paroxysmal atrial fibrillation Post-hospital follow-up, s/p PCI with stenting, heart failure Nasrin Parra PA [facility] [place] [address] [place] [address] Referral ID Status Reason Start Date Expiration Date Visits V isits Requested Authorized [id number] Closed Consult, 05/21/2022 05/21/2023 1 1 Test & Treat Encounter Details Date Type Department Care Team Description 06/13/2022 Office Visit Cardiology at [facility] Alan Reid Coronary artery disease invo lving kake coronary artery of kake heart without angina pectoris; [facility] MD Kurt HFrEF (heart failure with reduced ejecti on fraction); Drive [facility] [place] [address] CARDIOLOGY [phone] [place], [place] [address] Social History Tobacco Use Types [...] note were not included. [facility] [place] [phone] CARDIOLOGY OUTPATIENT PROGRESS NOTE PRIMARY CARE PROVIDER: Bobby Das MD REFERRING PROVIDER: Nasrin Prara PROBLEM LIST: Patient Active Problem List Diagnosis ??? 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 Hypertriglyceridemia ??? Adhesive [...] 3 ??? fluticasone propionate (FLONASE) 50 mcg/actuation [place], Suspension 1 spray by Each Nare route [...] healing well. Markedly diminished left radial pulse. EXPANSION JOINT BUILDER: Normal mentation. Psych: Appropriate affect. Labs: Lab [...] device therapy possiblyincluding AV node ablation and TECHNICAL SOLUTIONS CONSULTANT-D. 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 documented in this encounter Plan of Treatment Upcoming Encounters Date Type Specialty Care Team Description 08/08/2022 Office Visit Gastroenterology Negra Collins MD [facility] DR GASTROENTEROLOGY DEPT [place], [place] [address] (Wo rk) 09/05/2022 Appointment Cardiology Trinity Reid MD [facility] CARDIOLOGY [place], [place] [address] (Wo rk) 09/05/2022 Office Visit Cardiology Trinity Reid MD [facility] CARDIOLOGY [place], [place] [address] (Wo rk) Scheduled Orders Name Type Priority Associated Order Schedule Diagnoses Echocardiogram Echocardiography Routine HFrEF (heart Expected: Transthoracic failure with 08/13/2022, reduced ejection Expires: fraction) 02/12/2023 documented as of this encounter Visit Diagnoses Diagnosis 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
--- OUTSIDE RECORDS SUMMARY | 2022-07-19 13:17 | XMS_ITS | Encounter Summary ---
:1940 Author Organization [facility] [place] [address] Care Team Providers Name Role Phone Bobby Das MD Primary Care Provider Reason for Visit Auth/Cert Specialty Diagnoses / Procedures Referred By Contact Refer red To Contact Diagnoses GIB (gastrointestinal bleeding) Abe [facility] [place] [place] [address] Referral ID Status Reason Start Date Expiration Date Visits Requ ested Visits Authorized [id number] 1 1 Encounter Details Date Type Department Care Team Description 05/31/2022 Anesthesia Event Gastroenterology at [facility] Elmer Johnson MD [facility] [place] [address] [facility] Yogi Machado CRNA [facility] [place] [address] [place] [address] Anesthesia Record Procedure Summary Procedure Name [...] fossa), DION Carpenter Alysia O, RN right; txme-ybj-pgnalw catheter system; 20 gauge; no longer indicated, [...] Procedure Summary Date: 05/31/22 Room / Location: [facility] ENDO 3 / [facility] ENDOSCOPY Anesthesia Start: 1603 Anesthesia Stop: 165 Procedures: EGD, UPPER GI ENDOSCOPY (N/A Trunk) EGD, W CONTROL OF BLEEDING, ANY METHOD Diagnosis: (melena) Surgeons: Giovani Ponce MD Responsible Provider: Elmer Johnson MD Anesthesia Type: MAC ASA Status: 3 All Anesthesia Providers: Anesthesiologist: Elmer Johnson MD RN CLINICAL: Yogi Dawkins CRNA Vitals Value Taken Time BP 95/62 05/31/22 1720 Temp Pulse Resp 18 05/31/22 1720 SpO2 99 % 05/31/22 1720 Pain Level 0 05/31/22 1720 Patient Location: PACU/[facility] Level of Consciousness: Awake and Alert [...] IR Biopsy Spine 07/20/2019 Bobby Marshall MD [facility] INTERVENTIONL RAD ??? IR VERTEBROPLASTY LUMBAR MULTIPLE LEVELS 07/20/2019 IR Vertebroplasty Lumbar Multiple Levels 07/20/2019 Bobby Marshall MD [facility] INTERVENTIONL RAD ??? IR VERTEBROPLASTY THORACIC SINGLE LEVEL 10/25/2020 IR Vertebroplasty Thoracic Single Level 10/25/2020 Matt Chisholm MD [facility] INTERVENTIONL RAD ??? PRO EMBLC/THRMBC FEMORAL POPLITEAL AORTO-ILIAC ARTERY Left 05/15/2022 EMBOLECTOMY OR THROMBECTOMY, FEMOROPOPLITEAL, AORTOILIAC ARTERY BY LEG INCISION (WRVU 19.48) performed by Fito Summers MD at [facility] MAIN OR ??? PRO UPPER GI ENDOSCOPY, CTRL BLEED 05/31/2022 EGD, W CONTROL OF BLEEDING, ANY METHOD performed by Giovani Ponce MD at [facility] ENDOSCOPY ??? PRO UPPER GI ENDOSCOPY, DIAGNOSTIC N/A 05/31/2022 EGD, UPPER GI ENDOSCOPY performed by Giovani Ponce MD at [facility] ENDOSCOPY Social History Tobacco Use ??? [...] risks discussed with patient. Plan discussed with RN CLINICAL. Anesthesia Screening documented in this encounter Plan of Treatment Upcoming Encounters Date Type Specialty Care Team Description 08/08/2022 Office Visit Gastroenterology Negra Collins MD [facility] GASTROENTEROLOGY DEPT [place], [place] [address] (Wo rk) 09/05/2022 Appointment Cardiology Trinity Reid MD [facility] CARDIOLOGY [place], [place] [address] (Wo rk) 09/05/2022 Office Visit Cardiology Trinity Reid MD [facility] CARDIOLOGY [place], [place] [address] (Wo rk) documented as of [...] mg documented in this encounter Care Teams Link Fabric Machine Operator Relationship Specialty Start Date End Date Bobby Das MD PCP - General 10/02/[address] [place] [address] [place] [phone] documented as of this encounter
--- OUTSIDE RECORDS SUMMARY | 2022-07-19 13:17 | XMS_ITS | Encounter Summary ---
:1940 [place] [address] Care Team Providers Name Role Phone Bobby Das MD Primary Care Provider Reason for Visit Reason Comments Dizziness Auth/Cert Specialty Diagnoses / Procedures Referred By Contact Refer red To Contact Diagnoses GIB (gastrointestinal bleeding) Abe [facility] [address] Referral ID Status Reason Start Date Expiration Date Visits Requ ested Visits Authorized [id number] 1 1 Encounter Details Date Type Department Care Team Description 05/31/2022 - Hospital Encounter Intermediate Special Dixon Hinds MD [facility] [place] [address] GIB 06/02/2022 Care [place] [address] (gastrointestinal [facility] [place] J[place] [address] bleeding) ([facility] [place] [address] Dx) [place] [address] Social History Tobacco Use Types Packs/Day Years [...] Valle MD - 06/02/2022 12:48 PM EDT [facility] Medicine - Discharge Summary Patient [...] switching to a different bloodthinner with the dike supervisor outpatient. Call your doctor or seek medical [...] switchingto a different blood thinner with your dike supervisor as an outpatient Stopped Medications - Aspirin - Valsartan - Speak with your dike supervisor about the timing of restarting this Follow-up Appointments Future Appointments Date Time Provider Department Center 06/10/2022 11:00 AM Loretta Cohen MD [facility] 06/13/2022 7:30 AM Edson [place]os [place] [facility] VAS LAB [facility] 06/13/2022 8:00 AM Fito Summers MD [facility] V SURG [facility] 06/13/2022 10:00 AM Alan Reid MD [address] Your Inpatient Medical Team at [facility] Name(s) of your inpatient provider(s): Dr. John mAes For questions regarding issues relating to your hospitalization on the Hospital Medicine Service, please contact your inpatient physician through the [facility] Contact Assembler [phone]. Issues after hours and on weekends will be handled by the Hospitalist staff on-call. Your Primary Care Provider Bobby Das MD [phone] Future Appointments and Orders Future Appointments and Orders Future Appointments Provider Department Dept Phone 06/10/2022 11:00 AM Loretta Cohen MD Dermatology [facility] Arrive at: Pricing Associate [address] [place] [phone] 06/13/2022 7:30 AM Edson [place] Vascular Lab at [facility] Arrive at: Pricing Associate Area [phone] 06/13/2022 8:00 AM Fito Summers MD Vascular Surgery at [facility] Arrive at: Pricing Associate Area 06/13/2022 10:00 AM Alan Reid MD Cardiology at [facility] Arrive at: Pricing Associate Area [phone] For questions regarding this document or issues relating to this hospitalization on the Medical Service, please contact your inpatient physician through the [facility] Contact Assembler . Issues after hours and on [...] switching to a different bloodthinner with the dike supervisor outpatient. Call your doctor or seek medical [...] switchingto a different blood thinner with your dike supervisor as an outpatient Stopped Medications - Aspirin - Valsartan - Speak with your dike supervisor about the timing of restarting this Follow-up Appointments Future Appointments Date Time Provider Department Center 06/10/2022 11:00 AM Loretta Cohen MD [facility] 06/13/2022 7:30 AM Edson [place] [facility] VAS LAB ILDA POWELL 06/13/2022 8:00 AM Fito Summers MD [facility] V SURG [facility] 06/13/2022 10:00 AM Alan Reid MD [facility] CARD 4A [facility] Your Inpatient Medical Team at [facility] Name(s) of your inpatient provider(s): Dr. John Ames For questions regarding issues relating to your hospitalization on the Hospital Medicine Service, please contact your inpatient physician through the [facility] Contact Assembler [phone]. Issues after hours and on weekends will be handled by the Hospitalist staff on-call. Your Primary Care Provider Bobby Das MD [phone] documented in this encounter Medications at Time [...] spent >30 minutes (Day of Discharge Code 74737) involved in the final examination of the [...] were not included. Hospital Medicine Progress Note [place] Team - Pager #[phone] Admit Date: 05/31/2022 Name: Koko Zamora : [...] Kurt Ames MD Internal Medicine, PGY-1 Medicine [place] Team #[id number] Associated attestation - John Jolley MD - 06/01/2022 5:02 PM EDT [facility] Medicine -- Attending Progress Note Please [...] of two midnights or is on the [facility] inpatient only procedure list (status C) due to: GI Bleeding documented in this encounter H&P Notes Mahendra Victor MD - 05/31/2022 4:33 PM EDT Images from the original note were not included. [facility] Medicine (#[id number]) History and Physical Patient info: Name: Koko Zamora : 1940 PCP: Bobby Das MD PCP phone number: [phone] Date of Admission: 05/31/2022 ( Hospital Day [...] IR Biopsy Spine 07/20/2019 Bobby Marshall MD [facility] INTERVENTIONL RAD ??? IR VERTEBROPLASTY LUMBAR MULTIPLE LEVELS 07/20/2019 IR Vertebroplasty Lumbar Multiple Levels 07/20/2019 Bobby Marshall MD [facility] INTERVENTIONL RAD ??? IR VERTEBROPLASTY THORACIC SINGLE LEVEL 10/25/2020 IR Vertebroplasty Thoracic Single Level 10/25/2020 Matt Chisholm MD [facility] INTERVENTIONL RAD ??? PRO EMBLC/THRMBC FEMORAL POPLITEAL AORTO-ILIAC ARTERY Left 05/15/2022 EMBOLECTOMY OR THROMBECTOMY, FEMOROPOPLITEAL, AORTOILIAC ARTERY BY LEG INCISION (WRVU 19.48) performed by Fito Summers MD at [facility] MAIN OR No family history [...] 11 ??? fluticasone propionate (FLONASE) 50 mcg/actuation [place], Suspension as needed. ??? fluorouraciL (EFUDEX) 5 [...] Gas) No results found for: PHART, PO2ART, KWW2QHO, YSQ3ALO Microbiology: N/A Pertinent radiology/diagnostic studies: Recent prior [...] Status: Full Arpita Valle MD, PGY-3 05/31/2022 [facility] Medicine # [phone] Attending Staff Admission Documentation I have examined [...] 05/31/2022 3:58 PM EDT Norepinephrine pulled from [facility] for soft BPs. Upon arrival to pt's [...] AM EDT Pt brought to XR by chemical radiation technician Brittany Ramirez MD - 05/31/2022 10:40 AM [...] who have questions please contact the health childcare center director that requested your imaging first. Chest PA [...] who have questions please contact the health childcare center director that requested your imaging first. Course as [...] recommendations from Brittany Tavares MD Resident 05/31/22 [id number] Associated attestation - Regina Hinds MD - [...] soft blood pressures, MD made aware. 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 Patient reported blurry/hazy [...] Heparin gtt - plan to bridge to [facility] Discharge planning Increase strength & mobility INDIVIDUALIZED [...] the original note were not included. [facility] [place] [id number] INPATIENT CARDIOLOGY CONSULT NOTE Date of Consultation: 06/01/2022 Admit Date: 05/31/2022 Place of Service: IS86/IS86-A Referring Attending: REGINA HINDS COLEMAN W FRIEDMAN, HARLEY P Responsible Pepper Cutter: Dr. Rizo Hospital Day 1 day Reason [...] LCX and LCx stent) who presented to [facility] on 05/31/2022 for GI bleed. Patient presented [...] IR Biopsy Spine 07/20/2019 Bobby Marshall MD [facility] INTERVENTIONL RAD ??? IR VERTEBROPLASTY LUMBAR MULTIPLE LEVELS 07/20/2019 IR Vertebroplasty Lumbar Multiple Levels 07/20/2019 Bobby Marshall MD [facility] INTERVENTIONL RAD ??? IR VERTEBROPLASTY THORACIC SINGLE LEVEL 10/25/2020 IR Vertebroplasty Thoracic Single Level 10/25/2020 Matt Chisholm MD [facility] INTERVENTIONL RAD ??? PRO EMBLC/THRMBC FEMORAL POPLITEAL AORTO-ILIAC ARTERY Left 05/15/2022 EMBOLECTOMY OR THROMBECTOMY, FEMOROPOPLITEAL, AORTOILIAC ARTERY BY LEG INCISION (WRVU 19.48) performed by Fito Summers MD at [facility] MAIN OR ALLERGIES: Allergies Allergen [...] time ??? fluticasone propionate (FLONASE) 50 mcg/actuation [place], Suspension 1 spray by Each Nare route [...] 05/31/2022 in Intermediate Special Care Unit [facility] ED to Hosp-Admission (Discharged) from 05/15/2022 in Intermediate Cardiac Care Unit [facility] Weight 77.1 kg (170 lb) 1 [...] Neurology: Without focal deficit ECG: Echocardiogram: 05/16/2022 [facility] 05/20/2022 Coronary Angiography: Dominance: Right [...] 3.5 guiding catheter and a 3.5 [address] [place] [address] 20 Mhz. Imaging was successful. Image [...] A premounted 2.75 x 30 mm Rudy Cottle (AMPARO) was deployed with a maximum inflation [...] may require modification of this regimen. Consult [facility] Interventional Cardiology for questions. The 1 year [...] Hb drop. Unknown source. has had a [facility] with stent placed and revascularization of left lower extremity within the past two weeks, recently on anticoagulation Unknown source of bleeding TECHNIQUE: Helical CT of the abdomen and pelvis was performed before and after the intravenous administration contrast utilizing GI bleed protocol. Administered 125.0 ml of OMNIPAQUE 350.00 mg/ml. Oral contrast was not administered. COMPARISON: 05/15/2022 from [facility] FINDINGS: GI Tract: Pre-contrast: No bowel [...] who have questions please contact the health childcare center director that requested your imaging first. [place] 48 [...] who have questions please contact the health childcare center director that requested your imaging first. Recent Labs [...] on xarelto, ischemic systolic heart failure (recent [facility] 05/20/2022 with 2V disease OM1 and distal RCA, had ostial LCX and LCx stent), recent admission for acutelimb ischemia LLE, where he had left common femoral transverse arteriotomy and primary repair, thromboembolectomy of the SFA, profunda and common femoral artery with 4 compartment fasciotomies, who presented to [facility] on 05/31/2022 for GI bleed. Cardiology consulted [...] attestation for additional insight. Rossy Anaya MD [facility] Salesperson [employer], PGY-5 Inpatient Cardiology Consults Pager #[phone] Please check Qgenda for on-call cardiology consults [...] A&Ox 4. On room air. VSS. LBM: MULTI PUNCH OPERATOR. Adequate urine output, urinal at bedside, flomax [...] surrogate would be surrogate decision maker per [place] surrogate decision making law. (Only good for 180 days) Any patient receiving care in [place] must abide by [place] law. The hierarchy [...] (i) The agent with financial power of cable operator or a conservator appointed in accordance with [...] walker - rolling Home Address confirmed as: [address] [place] [phone] Social & Family Supports: All names listed below confirmed with patient as current and correct Extended Emergency Contact Information Primary Emergency Contact: Ursula Zamora Address: [address] [place] [phone] [facility] Relation: Spouse Current Care Provided by: [...] Type: *No Product type* / Secondary Insurance: [facility] Secondary Insurance? (Only Medicare A&B): Yes ; Prescription Coverage: Yes Preferred Pharmacy: [id number] - [facility], [place] - [address] [facility] [address] [facility] [address] [facility] [address] Status: Patient is a : No Primary Care Provider: Bobby Das MD [phone] Patient/Caregiver Goals of Treatment: Patient plans to [...] with transition of care planning. [facility] Front Desk Clerk [facility] Medicine/ Medical Specialties Pager- [phone] [...] Operative Note Patient Name: Koko Rioson : [id number] MR#: [id number] Case Date: 05/31/2022 Surgeon: Surgeon(s) and Role: * Giovani Ponce MD - Primary Procedure(s): EGD, UPPER GI ENDOSCOPY EGD, W CONTROL OF BLEEDING, ANY METHOD Please see Provation report for details. Consult Note - Isi Celaya MD - 05/31/2022 2:14 PM EDT Images from the original note were not included. DIVISION OF GASTROENTEROLOGY & HEPATOLOGY INITIAL CONSULT REQUESTING PROVIDER: Regina iHnds MD NAME: Koko Zamora : 1940 HPI: [...] stomach. He has had colonoscopies before in [place] - notes first ever he had 6 polyps removed but last colo 5 yrs ago was normal. He lives in [facility]. Currently light-headedness is improved. No fevers, [...] IR Biopsy Spine 07/20/2019 Bobby Marshall MD [facility] INTERVENTIONL RAD ??? IR VERTEBROPLASTY LUMBAR MULTIPLE LEVELS 07/20/2019 IR Vertebroplasty Lumbar Multiple Levels 07/20/2019 Bobby Marshall MD [facility] INTERVENTIONL RAD ??? IR VERTEBROPLASTY THORACIC SINGLE LEVEL 10/25/2020 IR Vertebroplasty Thoracic Single Level 10/25/2020 Matt Chisholm MD [facility] INTERVENTIONL RAD ??? PRO EMBLC/THRMBC FEMORAL POPLITEAL AORTO-ILIAC ARTERY Left 05/15/2022 EMBOLECTOMY OR THROMBECTOMY, FEMOROPOPLITEAL, AORTOILIAC ARTERY BY LEG INCISION (WRVU 19.48) performed by Fito Summers MD at [facility] MAIN OR SOCIAL HX: Social [...] sounds, tympanic to percussion RECTAL: performed with registered physical therapist present, no overt masses, fissures, external hemorrhoids, [...] who have questions please contact the health childcare center director that requested your imaging first. Abdomen & [...] Collins MD [facility] GASTROENTEROLOGY DEPT [place], [place] [address] (Wo bob) 09/05/2022 Appointment Cardiology Trinity Reid MD [facility] CARDIOLOGY [place], [place] [address] (Wo bob) 09/05/2022 Office Visit Cardiology Trinity Reid MD [facility] ER DR CARDIOLOGY [place], [place] [address] (Wo rk) documented as of [...] LABORATORY Neutr Abs (ANC) 4.44 1.70 - [facility] 6.10 [facility] x10(3)/[facility] LABORATORY Lymphocytes % 25.2 % [facility] LABORATORY Lymphocytes Abs 1.8 0.9 - 3.2 [facility] x10(3)/[facility] LABORATORY Monocytes % 10.0 % [facility] LABORATORY Monocyte Abs 0.7 0.3 - 0.9 [facility] x10(3)/[facility] LABORATORY Eosinophils % 2.1 % [facility] LABORATORY Eosinophils Abs 0.2 0.0 - 0.4 [facility] x10(3)/[facility] LABORATORY Basophils % 0.7 % [facility] LABORATORY Basophils Abs 0.0 0.0 - 0.1 [facility] x10(3)/[facility] LABORATORY Immature Gran % 0.70 % [facility] [...] Resulting Agency Comment Spec In Lab Kurt mAes MD HEMATOLOGY ORDERABLES Performing Organization Address City/State/ZIP Code Phon e Number [place] [id number] [facility] [address] (ABNORMAL) Hemogram (06/02/2022 8:20 AM EDT) Analysis Performed At Patho logist Time Signature WBC 7.2 4.0 - 9.5 [place] x10(3)/[facility] LABORATORY RBC 2.74 (L) 4.58 - [facility] 5.54 [facility] x10(6)/[facility] LABORATORY Hemoglobin 8.7 (L) 13.7 - [facility] 16.5 g/dL [facility] LABORATORY Hematocrit 25.7 (L) 40.5 - [facility] 48.5 % [facility] LABORATORY MCV 93.8 (H) 82.9 - [facility] 93.1 [facility] LABORATORY MCH 31.8 27.5 - [place] 32.1 pg [facility] LABORATORY MCHC 33.9 32.0 - [place] 35.7 g/dL [facility] LABORATORY Platelets 260 145 - 357 [facility] x10(3)/[facility] LABORATORY RDWSD 51.0 (H) 36.0 - [place] 45.0 [facility] LABORATORY RDWCV 14.9 (H) 11.4 - [facility] XIAO 13.8 % [facility] LABORATORY MPV 10.0 7.6 - 12.9 [facility] LABORATORY nRBC % Auto 0.0 % [facility] LABORATORY nRBC Abs Auto 0.000 0.000 - [place] 0.000 [facility] x10(3)/[facility] LABORATORY Specimen Anatomical Collection Method Collection Time Receive d Time (Source) Location / / Volume Laterality Blood 06/02/2022 8:20 AM 8:25 EDT AM EDT Resulting Agency Comment Spec In Lab Kurt Ames MD HEMATOLOGY ORDERABLES Performing Organization Address City/[facility]/[place] [address] Heparin (unfractionated) Level (06/02/2022 6:30 AM EDT) athologist Signature Heparin UFH 0.39 IU/mL [facility] LABORATORY [...] Organization Address City/State/[place] [address] Heparin (unfractionated) Level (06/02/2022 12:30 AM EDT) athologist Signature Heparin UFH 0.81 IU/mL [facility] LABORATORY [...] Performing Organization Address City/[facility]/ZIP Code Phon e Number [address] Magnesium (06/02/2022 12:30 AM EDT) athologist Signature Magnesium 0.83 0.69 - 1.07 [facility] mmol/L [facility] LABORATORY Specimen Anatomical Collection Method Collection Time Receive d Time (Source) Location / / Volume Laterality Blood 06/02/2022 12:30 06/02/2022 AM EDT 12:40 AM EDT Resulting Agency Comment Spec In Lab Mahendra Victor MD CHEMISTRY ORDERABLES Performing Organization Address City/[facility] Phon e Number [address] (ABNORMAL) Basic Metabolic Panel (non-fasting) (06/02/2022 12:30 AM EDT) athologist Signature Glucose Lvl 151 65 - 199 [facility] mg/dL [facility] LABORATORY Comment: Diabetes: >=200 mg/dL plus symp toms BUN 12 10 - 20 mg/dL [facility] LABORATORY Creatinine 0.71 (L) 0.80 [...] 15 mmol/L [facility] LABORATORY Calcium 8.1 (L) 8.5 [...] Resulting Agency Comment Spec In Lab Mahendra Vicotr MD CHEMISTRY ORDERABLES Performing Organization Address City/State/ZIP Code Phon e Number [place] [id number]OS[address] LAB[address]ORY [address] (ABNORMAL) Differential, Automated (06/01/2022 7:29 PM EDT) P athologist Signature Neutrophils % 68.8 % [facility] LABORATORY Neutr Abs (ANC) 5.34 1.70 - [facility] 6.10 [facility] x10(3)/[facility] LABORATORY Lymphocytes % 19.6 % [facility] LABORATORY Lymphocytes Abs 1.5 0.9 - 3.2 [facility] x10(3)/[facility] LABORATORY Monocytes % 8.1 % [facility] LABORATORY Monocyte Abs 0.6 0.3 - 0.9 [facility] x10(3)/[facility] LABORATORY Eosinophils % 1.8 % [facility] LABORATORY Eosinophils Abs 0.1 0.0 - 0.4 [facility] x10(3)/[facility] LABORATORY Basophils % 0.8 % [facility] LABORATORY Basophils Abs 0.1 0.0 - 0.1 [facility] x10(3[facility] LABORATORY Immature Gran % 0.90 % [facility] [...] Organization Address City/State/[place] [address] (ABNORMAL) Hemogram (06/01/2022 7:29 PM EDT) Analysis Performed At Patho logist Time Signature WBC 7.8 4.0 - 9.5 [facility] x10(3)/[facility] LABORATORY RBC 2.65 (L) 4.58 - [place] 5.54 [facility] x10(6)/[facility] LABORATORY Hemoglobin 8.3 (L) 13.7 - [facility] 16.5 g/dL [facility] LABORATORY Hematocrit 24.8 (L) 40.5 - [place] 48.5 % [facility] LABORATORY MCV 93.6 (H) 82.9 - [facility] XIAO 93.1 [facility] LABORATORY MCH 31.3 27.5 - [place] 32.1 pg [facility] LABORATORY MCHC 33.5 32.0 - [facility] XIAO 35.7 g/dL [facility] LABORATORY Platelets 263 145 - 357 [facility] x10(3)/[facility] LABORATORY RDWSD 52.8 (H) 36.0 - [place] 45.0 [facility] LABORATORY RDWCV 15.4 (H) 11.4 - [facility] XIAO 13.8 % [facility] LABORATORY MPV 10.4 7.6 - 12.9 [facility] nRBC % Auto 0.0 % [facility] LABORATORY nRBC Abs Auto 0.000 0.000 - [place] 0.000 [facility] x10(3)/[facility] LABORATORY Specimen Anatomical Collection Method Collection Time Receive d Time (Source) Location / / Volume Laterality Blood 06/01/2022 7:29 PM 2 7:29 EDT PM EDT Resulting Agency Comment Spec In Lab Kurt Ames MD HEMATOLOGY ORDERABLES Performing Organization Address City/[facility]/ZIP Code Phon e Number [address] Heparin (unfractionated) Level (06/01/2022 7:29 PM EDT) P athologist Signature Heparin UFH 0.81 IU/mL [facility] LABORATORY [...] Organization Address City/State/[place] [address] (ABNORMAL) Heparin (unfractionated) Level (06/01/2022 11:32 AM EDT) Patholo gist Method Time Signature Heparin UFH 1.05 IU/mL [facility] Level (Critical) [facility] LABORATORY Comment: Critical Result called by [...] Organization Address City/State/[place] [address] (ABNORMAL) Differential, Automated (06/01/2022 5:56 AM EDT) [facility] Method Time Signature Neutrophils % 62.7 % [facility] LABORATORY Neutr Abs (ANC) 6.11 (H) 1.70 - [facility] 6.10 [facility] x10(3)/[facility] LABORATORY Lymphocytes % 23.5 % [facility] LABORATORY Lymphocytes Abs 2.3 0.9 - 3.2 [facility] x10(3)/[facility] LABORATORY Monocytes % 10.0 % [facility] LABORATORY Monocyte Abs 1.0 (H) 0.3 - 0.9 [facility] x10(3)/[facility] LABORATORY Eosinophils % 2.2 % [facility] LABORATORY Eosinophils Abs 0.2 0.0 - 0.4 [facility] x10(3)/[facility] LABORATORY Basophils % 0.9 % [facility] LABORATORY Basophils Abs 0.1 0.0 - 0.1 [facility] x10(3)/[facility] LABORATORY Immature Gran % 0.70 [...] Organization Address City/State/ZIP Code Phon e Number [place] [id number]OS[address] LAB[address] (ABNORMAL) Hemogram (06/01/2022 5:56 AM EDT) Analysis Performed At Patho logist Time Signature WBC 9.7 (H) 4.0 - 9.5 [facility] x10(3)/[facility] LABORATORY RBC 2.83 (L) 4.58 - [facility] XIAO 5.54 [facility] x10(6)/[facility] LABORATORY Hemoglobin 9.0 (L) 13.7 - [facility] 16.5 g/dL [facility] LABORATORY Hematocrit 26.7 (L) 40.5 - [facility] XIAO 48.5 % [facility] MCV 94.3 (H) 82.9 - [facility] 93.1 fL [facility] MCH 31.8 27.5 - [place] XIAO 32.1 pg [facility] MCHC 33.7 32.0 - [facility] XIAO 35.7 g/dL [facility] Platelets 250 145 - 357 [facility] x10(3)/[facility] LABORATORY RDWSD 54.3 (H) 36.0 - [place] XIAO 45.0 [facility] LABORATORY RDWCV 15.9 (H) 11.4 - [place] HAGEN 13.8 % [facility] MPV 10.5 7.6 - 12.9 [facility] XIAO [facility] LABORATORY nRBC % Auto 0.0 % [facility] nRBC Abs Auto 0.000 0.000 - [place] XIAO 0.000 [facility] x10(3)/[facility] LABORATORY Specimen Anatomical Collection Method Collection Time Receive d Time (Source) Location / / Volume Laterality Blood 06/01/2022 5:56 AM 2 6:05 EDT AM EDT Resulting Agency Comment Spec In Lab Arpita Valle MD HEMATOLOGY ORDERABLES Performing Organization Address City/State/[place] [address] Heparin (unfractionated) Level (06/01/2022 4:30 AM EDT) athologist Signature Heparin UFH 0.68 IU/mL [facility] LABORATORY [...] Organization Address City/State/[place] [address] (ABNORMAL) Urinalysis with reflex Culture (06/01/2022 4:00 AM EDT) Patholo gist Method Time Signature Glucose UA 500 Negative [facility] (Critical) mg/dL [facility] Comment: Urinalysis result NOT critical [...] HOSPITAL LABORATORY Blood UA Negative Negative mg/dL [facility] Ketones UA Negative Negative mg/dL [facility] Nitrite UA Negative Negative [facility] Leukocytes UA Negative Negative [facility] LABORATORY Appearance UA Clear Clear [facility] Spec Isaban UA >=1.030 (A) 1.005 - 1.030 [facility] Color UA Yellow Yellow [facility] Culture Reflexed No [facility] Specimen Anatomical Collection Method Collection Time Receive d Time (Source) Location / / Volume Laterality Clean Catch 06/01/2022 4:00 AM 4:26 Urine EDT AM EDT Resulting Agency Comment Spec In Lab Mahendra Victor MD URINE ORDERABLES Performing Organization Address City/State/ZIP Code Phon e Number [address] Magnesium (06/01/2022 1:00 AM EDT) P athologist Signature Magnesium 0.93 0.69 - 1.07 [facility] mmol/L [facility] Specimen Anatomical Collection Method Collection Time Receive d Time (Source) Location / / Volume Laterality Blood 06/01/2022 1:00 AM 2 1:37 EDT AM EDT Resulting Agency Comment Spec In Lab Mahendra Victor MD CHEMISTRY ORDERABLES Performing Organization Address City/State/ZIP Code Phon e Number [facility] [place] [address] (ABNORMAL) Basic Metabolic Panel (non-fasting) (06/01/2022 1:00 AM EDT) P athologist Signature Glucose Lvl 148 65 - 199 [facility] mg/dL [facility] Comment: Diabetes: >=200 mg/dL plus symp toms BUN 23 (H) 10 - 20 mg/dL [facility] Creatinine 0.78 (L) 0.80 - 1.50 mg/dL [facility] Sodium 141 135 - 145 mmol/L [facility] Potassium 4.0 3.5 - 5.0 mmol/L [facility] [...] Anion Gap 9 5 - 15 mmol/L [facility] Calcium 8.6 8.5 - 10.5 mg/dL [facility] Estimated GFR 91 >=60 [...] Organization Address City/State/[place] [address] (ABNORMAL) Differential, Automated (06/01/2022 12:00 AM EDT) athologist Signature Neutrophils % 64.6 % [facility] Neutr Abs (ANC) 5.60 1.70 - [facility] 6.10 [facility] x10(3)/[facility] LABORATORY Lymphocytes % 22.4 % [facility] Lymphocytes Abs 1.9 0.9 - 3.2 [facility] x10(3)/[facility] LABORATORY Monocytes % 9.5 % [facility] Monocyte Abs 0.8 0.3 - 0.9 [facility] x10(3)[facility] LABORATORY Eosinophils % 2.1 % [facility] Eosinophils Abs 0.2 0.0 - 0.4 [facility] x10(3)[facility] LABORATORY Basophils % 0.6 % [facility] Basophils Abs 0.0 0.0 - 0.1 [facility] x10(3)/[facility] LABORATORY Immature Gran % 0.80 % [facility] [...] Organization Address City/State/[place] [address] (ABNORMAL) Hemogram (06/01/2022 12:00 AM EDT) Analysis Performed At Patho logist Time Signature WBC 8.7 4.0 - 9.5 [facility] x[facility](3[facility] LABORATORY RBC 2.77 (L) 4.58 - [place] XIAO 5.54 [facility] x10(6)/[facility] LABORATORY Hemoglobin 8.6 (L) 13.7 - [place] 16.5 g/dL [facility] Hematocrit 25.7 (L) 40.5 - [facility] XIAO 48.5 % [facility] MCV 92.8 82.9 - [facility] XIAO 93.1 [facility] LABORATORY MCH 31.0 27.5 - [place] 32.1 pg [facility] MCHC 33.5 32.0 - [place] 35.7 g/dL [facility] Platelets 260 145 - 357 [facility] x10(3)/[facility] LABORATORY RDWSD 51.9 (H) 36.0 - [facility] XIAO 45.0 [facility] LABORATORY RDWCV 15.5 (H) 11.4 - [place] 13.8 % [facility] MPV 10.4 7.6 - 12.9 [facility] nRBC % Auto 0.0 % [facility] nRBC Abs Auto 0.000 0.000 - [place] X[place] 0.000 [facility] x10(3)/[facility] LABORATORY Specimen (Source) Anatomical Collection Method Collection Time Re ceived Time Location / / Volume Laterality Blood 06/01/2022 06/01/2022 12:1 0 AM EDT Resulting Agency Comment Spec In Lab Arpita Valle MD HEMATOLOGY ORDERABLES Performing Organization Address City/State/ZIP Code [place] [address] (ABNORMAL) Differential, Automated (05/31/2022 9:17 PM EDT) P athologist Signature Neutrophils % 59.6 % [facility] Neutr Abs (ANC) 3.98 1.70 - [facility] 6.10 [facility] x10(3)/[facility] LABORATORY Lymphocytes % 27.5 % [facility] Lymphocytes Abs 1.8 0.9 - 3.2 [facility] x10(3)/[facility] LABORATORY Monocytes % 9.1 % [facility] Monocyte Abs 0.6 0.3 - 0.9 [facility] x10(3)/[facility] LABORATORY Eosinophils % 2.4 % [facility] Eosinophils Abs 0.2 0.0 - 0.4 [facility] x10(3)/[facility] LABORATORY Basophils % 0.7 % [facility] Basophils Abs 0.0 0.0 - 0.1 [facility] x10(3)/[facility] LABORATORY Immature Gran % 0.70 % [facility] [...] Organization Address City/State/ZIP Code Phon e Number [place] [id number] LAB[address]ORY Drive (ABNORMAL) Hemogram (05/31/2022 9:17 PM EDT) Analysis Performed At Patho logist Time Signature WBC 6.7 4.0 - 9.5 [facility] x10(3)/[facility] LABORATORY RBC 2.74 (L) 4.58 - [place] 5.54 [facility] x10(6)/[facility] LABORATORY Hemoglobin 8.5 (L) 13.7 - [facility] 16.5 g/dL [facility] Hematocrit 25.7 (L) 40.5 - [facility] 48.5 % [facility] MCV 93.8 (H) 82.9 - [facility] 93.1 [facility] LABORATORY MCH 31.0 27.5 - [facility] 32.1 pg [facility] MCHC 33.1 32.0 - [facility] 35.7 g/dL [facility] Platelets 233 145 - 357 [facility] x10(3)/[facility] LABORATORY RDWSD 51.9 (H) 36.0 - [facility] 45.0 [facility] LABORATORY RDWCV 15.3 (H) 11.4 - [facility] 13.8 % [facility] MPV 10.3 7.6 - 12.9 [facility] LABORATORY nRBC % Auto 0.0 % [facility] nRBC Abs Auto 0.000 0.000 - [facility] 0.000 [facility] x10(3)/[facility] LABORATORY Specimen Anatomical Collection Method Collection Time Receive d Time (Source) Location / / Volume Laterality Blood 05/31/2022 9:17 PM 9:25 EDT PM EDT Resulting Agency Comment Spec In Lab Arpita Valle MD HEMATOLOGY ORDERABLES Performing Organization Address City/State/[place] [address] Transfuse RBC (05/31/2022 7:36 PM EDT) Regina Hinds MD NURSING TREATMENT ORDERABLES - BLOOD ADMIN Transfuse RBC (05/31/2022 7:36 PM EDT) Regina Hinds MD NURSING TREATMENT ORDERABLES - BLOOD ADMIN UPPER GI ENDOSCOPY (05/31/2022 3:37 PM EDT) Component Value Ref Test Analysis Performed At Patholo gist Range Method Time Signature UPPER GI [facility] PROVATION ENDOSCOPY Endoscopy Procedure Date: 05/31/2022 3:37 PM ? Patient Name: Koko Zamora ? Date of : 1940 ? Age: 81 ? Order #: [id number] ? Instrument Name: [id number] ? Procedure: ? Upper GI endoscopy Indications: [...] beam at 0.8 liters/minute and 20 ? rodírguez. ? Moderate Sedation: ? Not applicable - [...] Procedure Code(s): ? --- Professional --- ? 16481, Esophagogastroduode noscopy, ? flexible, transoral; with control [...] stomach ? and duodenum CPT copyright 2020 [employer]. All rights reserved. The codes documented in this report are preliminary and upon automotive technician review may be revised to meet [...] who have questions please contact the health childcare center director that requested your imaging first. ? [...] was not administered. COMPARISON: 05/15/2022 from [facility] FINDINGS: GI Tract: Pre-contrast: No bowel [...] enlarged lymph nodes. Vasculature: Patent common iliac, switchboard wirer al iliac, and common femoral arteries bilaterally. [...] was not administered. COMPARISON: 05/15/2022 from [facility] FINDINGS: GI Tract: Pre-contrast: No bowel [...] enlarged lymph nodes. Vasculature: Patent common iliac, switchboard wirer al iliac, and common femoral arteries bilaterally. [...] ho have questions please contact the health childcare center director that requested your imaging first. Regina Hinds MD IMG CT ORDERABLES Type and Screen Validity (05/31/2022 1:43 PM EDT) [facility] Method Time Signature T&S only valid [facility] LABORATORY Comment: This Type and Screen result is only valid at the [facility] Specimen Anatomical Collection Method Collection Time Receive d Time (Source) Location / / Volume Laterality Blood 05/31/2022 1:43 PM 2 1:57 EDT PM EDT Resulting Agency Comment Spec In Lab Regina Hinds MD BLOOD BANK ORDERABLES Performing Organization Address City/[facility]/[place] [address] ABORH Recheck Status (05/31/2022 1:43 PM EDT) [facility] Method Time Signature ABORH Type Completed [facility] LABORATORY Specimen Anatomical Collection Method Collection Time Receive d Time (Source) Location / / Volume Laterality Blood 05/31/2022 1:43 PM 2 1:57 EDT PM EDT Resulting Agency Comment Spec In Lab Regina Hinds MD BLOOD BANK ORDERABLES Performing Organization Address City/[facility]/[place] [address] Antibody screen (05/31/2022 1:43 PM EDT) [facility] Method [place] Signature Ab Screen Negative [facility] LABORATORY Expires at 06/03/2022 [facility] 0757 on: [facility] Specimen Anatomical Collection Method Collection Time Receive d Time (Source) Location / / Volume Laterality Blood 05/31/2022 1:43 PM 2 1:57 EDT PM EDT Resulting Agency Comment Spec In Lab Rgeina Hinds MD BLOOD BANK ORDERABLES Performing Organization Address City/[facility]/[place] [address] ABO/Rh Typing (05/31/2022 1:43 PM EDT) P athologist Signature ABORh Type O Pos [facility] Specimen Anatomical Collection Method Collection Time Receive d Time (Source) Location / / Volume Laterality Blood 05/31/2022 1:43 PM 2 1:57 EDT PM EDT Resulting Agency Comment Spec In Lab Regina Hinds MD BLOOD BANK ORDERABLES Performing Organization Address City/[facility] [place] [address] Prepare RBC (05/31/2022 1:35 PM EDT) P athologist Signature Dispensed? Yes [facility] Specimen Anatomical Collection Method Collection Time Receive d Time (Source) Location / / Volume Laterality Blood 05/31/2022 1:35 PM 2 1:30 EDT PM EDT Regina Hinds MD BLOOD BANK ORDERABLES Performing Organization Address City/[facility]/[place] [address] Prepare RBC (05/31/2022 1:25 PM EDT) P athologist Signature Dispensed? Yes [facility] Specimen Anatomical Collection Method Collection Time Receive d Time (Source) Location / / Volume Laterality Blood 05/31/2022 1:25 PM 2 1:23 EDT PM EDT Regina Hinds MD BLOOD BANK ORDERABLES Performing Organization Address City/[facility] [place] [address] (ABNORMAL) Differential, Automated (05/31/2022 12:44 PM EDT) P athologist Signature Neutrophils % 62.0 % [facility] Neutr Abs (ANC) 4.71 1.70 - [facility] 6.10 [facility] x10(3)/[facility] LABORATORY Lymphocytes % 24.1 % [facility] Lymphocytes Abs 1.8 0.9 - 3.2 [facility] x10(3)/[facility] LABORATORY Monocytes % 10.8 % [facility] Monocyte Abs 0.8 0.3 - 0.9 [facility] x10(3)/[facility] LABORATORY Eosinophils % 1.6 % [facility] Eosinophils Abs 0.1 0.0 - 0.4 [facility] x10(3)/[facility] LABORATORY Basophils % 0.7 % [facility] Basophils Abs 0.0 0.0 - 0.1 [facility] x10(3)/[facility] LABORATORY Immature Gran % 0.80 % [facility] [...] Organization Address City/State/ZIP Code Phon e Number [place] [id number] HOSPITAL LAB[address]ORY Drive (ABNORMAL) Hemogram (05/31/2022 12:44 PM EDT) Analysis Performed At Patho logist Time Signature WBC 7.6 4.0 - 9.5 [facility] x10(3)/[facility] LABORATORY RBC 2.11 (L) 4.58 - [facility] 5.54 [facility] x10(6)/[facility] LABORATORY Hemoglobin 6.9 (L) 13.7 - [facility] 16.5 g/dL [facility] Hematocrit 20.8 (L) 40.5 - [facility] 48.5 % [facility] MCV 98.6 (H) 82.9 - [facility] 93.1 [facility] LABORATORY MCH 32.7 (H) 27.5 - [facility] 32.1 pg [facility] MCHC 33.2 32.0 - [facility] 35.7 g/dL [facility] Platelets 255 145 - 357 [facility] x10(3)/[facility] LABORATORY RDWSD 47.7 (H) 36.0 - [facility] 45.0 [facility] RDWCV 13.4 11.4 - [facility] 13.8 % [facility] MPV 10.7 7.6 - 12.9 [facility] LABORATORY nRBC % Auto 0.0 % [facility] nRBC Abs Auto 0.000 0.000 - [facility] 0.000 [facility] x10(3)/[facility] LABORATORY Specimen Anatomical Collection Method Collection Time Receive d Time (Source) Location / / Volume Laterality Blood 05/31/2022 12:44 05/31/2022 PM EDT 12:57 PM EDT Resulting Agency Comment Spec In Lab Brittany Ramirez MD HEMATOLOGY ORDERABLES Performing Organization Address City/State/[place] [address] (ABNORMAL) BLOOD GAS 2 VENOUS (05/31/2022 11:24 AM EDT) P athologist Signature pH [place] 7.38 7.32 - [facility] 7.42 [facility] pCO2 [place] 40 (L) 41 - 51 [facility] acute hospital LABORATORY pO2 [place] 18 (L) 25 - 40 [facility] acute hospital LABORATORY HCO3 [place] 23.3 mmol/L [facility] BE Marco Antonio -1.8 mmol/L [facility] Hgb Blood Gas 7.0 (L) 13.7 - [facility] 16.5 g/dL [facility] O2HB [place] 24.3 % [facility] COHB [place] 1.4 % [facility] Comment: Nonsmokers: 0.5-1.5% COHB Smokers: Variable, but usually less than 10% Toxic: 20-30% COHB Lethal: Greater than 60% COHB METHB Marco Antonio 1.7 (H) <=1.5 % [facility] Na Whole Blood 137 135 - 145 mmol/L [facility]OR[facility] K Whole Blood 3.9 3.5 - 5.0 mmol/L [facility] Whole Blood 107 98 - 107 mmol/L [facility] LABORATORY Gluc Whole Bld 204 (H) 65 - 199 mg/dL [facility] LAB[facility]ORY Comment: Diabetes: >=200 mg/dL plus symp toms Lactate WB 1.4 0.5 - 2.2 mmol/L [facility] LABOR[facility] BGas Source Venous [facility] LABORATORY Specimen Anatomical Collection Method Collection Time Receive d Time (Source) Location / / Volume Laterality Blood 05/31/2022 11:24 05/31/2022 AM EDT 11:24 AM EDT Regina Hinds MD CHEMISTRY ORDERABLES Performing Organization Address City/State/[place] [address] TSH [place] (05/31/2022 11:20 AM EDT) P athologist Signature TSH 1.67 0.27 - 4.20 [facility] mcIU/mL [facility] Comment: Reference Interval (mcIU/mL): Females: ??First Trimester: 0.23-3.88 ??Second Trimester: 0.22-3.90 ??Third Trimester: 0.44-4.66 Specimen Anatomical Collection Method Collection Time Receive d Time (Source) Location / / Volume Laterality Blood 05/31/2022 11:20 05/31/2022 AM EDT 11:28 AM EDT Resulting Agency Comment Spec In Lab Regina Hinds MD CHEMISTRY ORDERABLES Performing Organization Address City/State/[place] [address] XR Chest PA & [...] who have questions please contact the health childcare center director that requested your imaging first. ? [...] ho have questions please contact the health childcare center director that requested your imaging first. Regina Hinds MD IMG DX ORDERABLES Lipase (05/31/2022 10:50 AM EDT) athologist Signature Lipase 41 0 - 60 [facility]/L [facility] Specimen Anatomical Collection Method Collection Time Receive d Time (Source) Location / / Volume Laterality Blood Venous Draw / 05/31/2022 10:50 05/31/2022 Unknown AM EDT 11:11 AM EDT Resulting Agency Comment Spec In Lab Zain Champion MD CHEMISTRY ORDERABLES Performing Organization Address City/State/[place] [address] (ABNORMAL) Hepatic Function Panel (05/31/2022 10:50 AM EDT) Analysis Performed At Patho logist Time Signature Total Protein 6.4 6.1 - 8.0 [facility] g/dL [facility] Albumin 4.1 3.2 - 5.2 [facility] g/dL [facility] AST 24 0 - 39 [facility]L [facility] ALT 44 0 - 55 [facility]/L [facility] Alk Phos 63 40 - 130 [facility] unit/L [facility] Total <0.2 (L) 0.2 - 1.3 [facility] Bilirubin mg/dL [facility] Bili, Direct 0.1 0.0 - 0.3 [facility] mg/dL [facility] Specimen Anatomical Collection Method Collection Time Receive d Time (Source) Location / / Volume Laterality Blood Venous Draw / 05/31/2022 10:50 05/31/2022 Unknown AM EDT 11:11 AM EDT Resulting Agency Comment Spec In Lab Zain Champion MD CHEMISTRY ORDERABLES Performing Organization Address City/[facility]/ZIP Code Phon e Number [address] Blue Tube HOLD (05/31/2022 10:50 AM EDT) P athologist Signature Blue Hold Sample in [facility] lab. [facility] Specimen Anatomical Collection Method Collection Time Receive d Time (Source) Location / / Volume Laterality Blood Venous Draw / 05/31/2022 10:50 05/31/2022 Unknown AM EDT 11:05 AM EDT Brittany Ramirez MD HEMATOLOGY ORDERABLES Performing Organization Address City/[facility]/ZIP Code Phon e Number [address] (ABNORMAL) Differential, Automated (05/31/2022 10:50 AM EDT) P athologist Signature Neutrophils % 66.9 % [facility]OR[facility]ORY Neutr Abs (ANC) 5.58 1.70 - [facility] 6.10 [facility] x10(3)/[facility] LABORATORY Lymphocytes % 22.2 % [facility] Lymphocytes Abs 1.8 0.9 - 3.2 [facility] x10(3)/[facility] LABORATORY Monocytes % 7.8 % [facility] Monocyte Abs 0.6 0.3 - 0.9 [facility] x10(3)/[facility] LABORATORY Eosinophils % 1.2 % [facility] Eosinophils Abs 0.1 0.0 - 0.4 [facility] x10(3)/[facility] LABORATORY Basophils % 0.7 % [facility] Basophils Abs 0.1 0.0 - 0.1 [facility] x10(3)/[facility] LABORATORY Immature Gran % 1.20 % [facility] [...] Organization Address City/State/ZIP Code Phon e Number [place] [id number] HOSP[address] LAB[address]ORY Drive (ABNORMAL) Hemogram (05/31/2022 10:50 AM EDT) Analysis Performed At Patho logist Time Signature WBC 8.3 4.0 - 9.5 [facility] x10(3)/[facility] LABORATORY RBC 2.26 (L) 4.58 - [facility] 5.54 [facility] x10(6)/[facility] LABORATORY Hemoglobin 7.4 (L) 13.7 - [facility] 16.[facility] g/dL [facility] Hematocrit 22.3 (L) 40.5 - [facility] 48.5 % [facility] MCV 98.7 (H) 82.9 - [facility] [facility] 93.1 fL [facility] MCH 32.7 (H) 27.5 - ILDA HAGEN 32.1 pg [facility] MCHC 33.2 32.0 - ILDA HAGEN 35.7 g/dL [facility] Platelets 283 145 - 357 ILDA XIAO x10(3)/[facility] LABORATORY RDWSD 47.0 (H) 36.0 - ILDA HAGEN 45.0 [facility] LABORATORY RDWCV 13.4 11.4 - ILDA XIAO 13.8 % [facility] MPV 10.8 7.6 - 12.9 ILDA HAGEN [facility] LABORATORY nRBC % Auto 0.0 % [facility] nRBC Abs Auto 0.000 0.000 - [facility] XIAO 0.000 [facility] x10(3)/[facility] LABORATORY Specimen Anatomical Collection Method Collection Time Receive d Time (Source) Location / / Volume Laterality Blood 05/31/2022 10:50 05/31/2022 AM EDT 11:03 AM EDT Resulting Agency Comment Spec In Lab Brittany Ramirez MD HEMATOLOGY ORDERABLES Performing Organization Address City/State/ZIP Code Phon e Number [address] Phosphorus (05/31/2022 10:50 AM EDT) P athologist Signature Phosphorus 3.2 2.5 - 4.5 [facility] XIAO mg/dL [facility] Specimen Anatomical Collection Method Collection Time Receive d Time (Source) Location / / Volume Laterality Blood 05/31/2022 10:50 05/31/2022 AM EDT 11:03 AM EDT Resulting Agency Comment Spec In Lab Regina Hinds MD CHEMISTRY ORDERABLES Performing Organization Address City/State/ZIP Code Phon e Number [address] Magnesium (05/31/2022 10:50 AM EDT) P athologist Signature Magnesium 0.93 0.69 - 1.07 [facility] XIAO mmol/L [facility] Specimen Anatomical Collection Method Collection Time Receive d Time (Source) Location / / Volume Laterality Blood 05/31/2022 10:50 05/31/2022 AM EDT 11:03 AM EDT Resulting Agency Comment Spec In Lab Regina Hinds MD CHEMISTRY ORDERABLES Performing Organization Address City/State/ZIP Code Phon e Number [address] (ABNORMAL) pro-Brain Natriuretic Peptide (05/31/2022 10:50 AM EDT) athologist Signature ProBNP 1,077 (H) <=449 [facility] TRUE linkswear pg/mL [facility] Specimen Anatomical Collection Method Collection Time Receive d Time (Source) Location / / Volume Laterality Blood 05/31/2022 10:50 05/31/2022 AM EDT 11:03 AM EDT Resulting Agency Comment Spec In Lab Regina Hinds MD CHEMISTRY ORDERABLES Performing Organization Address City/State/[place] [address] Troponin (05/31/2022 10:50 AM EDT) athologist Signature Troponin-T <0.01 0.00 - 0.00 [facility] XIAO ng/mL [facility] Comment: The 99th percentile for Troponin T is le ss than 0.01 ng/mL, any detectable cTnT concentration using this assay should be considered elevated. According to the third universal definit ion of myocardial infarction the following criteria with a clinical prese ntation consistent with acute myocardial ischemia meets the diagnosis for a myocardial infarction (VA). Detection of a rise and/or fall of [...] additional sample may be indicated. Reference: Third [place] Definition of Myocardial Infarction. Journal of the [place] [employer] 2012;60:1581-98 Specimen Anatomical Collection Method Collection Time Receive d Time (Source) Location / / Volume Laterality Blood 05/31/2022 10:50 05/31/2022 AM EDT 11:03 AM EDT Resulting Agency Comment Spec In Lab Regina Hinds MD CHEMISTRY ORDERABLES Performing Organization Address City/State/ZIP Code Phon e Number [place] [phone] (ABNORMAL) Basic Metabolic Panel (non-fasting) (05/31/2022 10:50 AM EDT) athologist Signature Glucose Lvl 223 (H) 65 - 199 [facility] mg/dL [facility] Comment: Diabetes: >=200 mg/dL plus symp toms BUN 39 (H) 10 - 20 mg/dL [facility] Creatinine 0.91 0.80 - 1.50 mg/dL [facility] Sodium 140 135 - 145 mmol/L [facility] Potassium 4.1 3.5 - 5.0 mmol/L [facility] [...] 15 mmol/L [facility] Calcium 9.1 8.5 - 10.5 mg/dL [facility] Estimated GFR 86 >=60 [...] Organization Address City/State/[place] [address] EKG 12 Lead (05/31/2022 10:11 AM EDT) Component Value Ref Range Test Analysis Performed Pathologis t Method Time At Signature Ventricular rate 106 BPM MUSE SYSTEM QRS Duration 122 ms MUSE SYSTEM Q-T Interval 368 ms MUSE SYSTEM QTC Calculated 488 ms MUSE SYSTEM (Bezet) Calculated R [place] -43 degrees MUSE SYSTEM Calculated T [place] 109 degrees MUSE SYSTEM INTERPRETATION Atrial fibrillation with rapid ventricular response MUSE SYSTEM Left axis deviation Minimal voltage criteria for LVH, may be normal variant ( Knippa product ) Cannot rule out Anterior infarct , age undetermined Abnormal ECG When compared with ECG of 20-MAY-2022 19:04, No significant change was found I personally reviewed the tracing and edited the fellows int erpretation Confirmed by fellow MD Mike, [place] ([id number]) on 022 8:36:21 PM Confirmed by MD [...] (Lidoderm) 5% patch 2 patch(Linked Group 1) 7129 (Patch Applied - Provider: Raven Barbour RN [...] - Less than 0.1 international unit/mL: Ad funds transfer clerk 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 to med 0-4,000 Units, Intravenous, BOLUS [facility], Starting on Fri05/31/22 at 2014, Until [...]
Routine documented in this encounter Care Teams Wheel Grinder Relationship Specialty Start Date End Date Bobby Das MD PCP - General 10/02/[address] [place] [address] [place] [phone] documented as of this encounter
--- OUTSIDE RECORDS SUMMARY | 2022-07-19 13:17 | XMS_ITS | Encounter Summary ---
:1940 Author Organization [facility] [place] [address] Care Team Providers Name Role Phone Bobby Das MD Primary Care Provider Encounter Details Date Type Department Care Team Description 06/23/2022 Telephone Gastroenterology at [facility] Alan August MD [facility] [place] [phone] GASTROENTEROLOGY DEPT [phone] [place], [place] [address] (Wo rk) Social History Tobacco [...] Date: 06/23/2022 Time: 2:27 AM [facility] Referring Provider: Shahram Urena DC HPI: [...] MD [facility] GASTROENTEROLOGY DEPT [place], [place] [address] ( rk) 09/05/2022 Appointment Cardiology Trinity Reid MD [facility] CARDIOLOGY [place], [place] [address] ( rk) 09/05/2022 Office Visit Cardiology Trinity Reid MD [facility] CARDIOLOGY [place], [place] [address] ([facility]) documented as of this encounter Visit Diagnoses Not on filedocumented in this encounter Care Teams Telephone Advice Nurse Relationship Specialty Start Date End Date Bobby Das MD PCP - General 10/02/[address] [place] [address] [place] [phone] documented as of this encounter
--- OUTSIDE RECORDS SUMMARY | 2022-07-19 13:17 | XMS_ITS | Encounter Summary ---
:1940 Author Organization [facility] [address] Care Team Providers Name Role Phone Bobby Das MD Primary Care Provider Reason for Referral Consultation (Routine) - Authorized Specialty Diagnoses / Procedures Referred By Contact Refer red To Contact Gastroenterology Diagnoses Adenomatous polyp of colon, unspecified part of colon Colonoscopy 06/25/22, discussed w/Dr. Ponce needs to be seen in clinic to discuss polyp / removal iso plavix & DOAC Isi Celaya MD [facility] Gastro 4l [facility] D [facility] [place] [address] [place] [address] Phone: Fax: Referral ID Status Reason Start Date Expiration Visits Visits Date Requested Authorized [id number] Authorized Consult, 06/25/2022 06/25/2023 1 1 Test & Treat Scheduling Instructions To be seen in ~2mo Encounter Details Date Type Department Care Team Description 06/25/2022 Orders Only Gastroenterology at [facility] Isi Celaya Adenomatous polyp of [facility] Bobby [place], [place] [address] [facility] part of colon [phone] [facility] [place] [address] Social History Tobacco Use Types Packs/Day Years [...] [facility] GASTROENTEROLOGY DEPT [place] [id number] (Wo rk) 09/05/2022 Appointment Cardiology Trinity Reid MD [facility] CARDIOLOGY [place], [place] [address] (Wo rk) 09/05/2022 Office Visit Cardiology Trinity Reid MD [facility] CARDIOLOGY [place], [place] [address] (Wo rk) Scheduled Referrals Name Type Priority Associated Order Schedule Diagnoses Referral to Outpatient Routine Adenomatous polyp Ordered: Gastroenterology Referral of colon, 06/25/2022 unspecified part of colon documented as of this encounter Visit Diagnoses Diagnosis Adenomatous polyp of colon, unspecified part of colon documented in this encounter Care Teams Electrical Tester Battery Relationship Specialty Start Date End Date Bboby Das MD PCP - General 10/02/[address] [place] [address] [place] [phone] documented as of this encounter
--- OUTSIDE RECORDS SUMMARY | 2022-07-19 13:18 | XMS_ITS | Encounter Summary ---
:1940 [place] [address] Care Team Providers Name Role Phone Bobby Das MD Primary Care Provider Reason for Referral Diagnostic Test (Routine) - Closed Specialty Diagnoses / Procedures Referred By Contact Refer red To Contact Cardiology Diagnoses Paroxysmal atrial fibrillation Nasrin Parra PA [facility] Non-Inv Card Lab Procedures [place] 48 Hrs-15 Days [facility] VASCULAR SURGERY [place], [place] [id number] [place] [phone] Fax: Referral ID Status Reason Start Date Expiration Date Visits V isits Requested Authorized [id number] Closed Specialty 05/21/2022 10/21/2022 1 1 Service Requested Reason for Visit Auth/Cert Specialty Diagnoses / Procedures Referred By Contact Refer red To Contact Diagnoses Limb ischemia LLE thrombus Fito Summers MD [facility] [place] [address] Referral ID Status Reason Start Date Expiration Date Visits Requ ested Visits Authorized [id number] 1 1 Encounter Details Date Type Department Care Team Description 05/21/2022 Hospital Encounter Non-Invasive Paroxysma l atrial [place] [address] Social History Tobacco Use Types Packs/Day [...] 04/12/20 21 (FLONASE) 50 mcg/actuation Nare route [place], Suspension daily as needed. fluorouraciL (EFUDEX) 5 [...] 08/08/2022 Office Visit Gastroenterology Negra Collins MD [facility] DR GASTROENTEROLOGY DEPT [place], [place] [address] (Wo rk) 09/05/2022 Appointment Cardiology Trinity Reid MD [facility] CARDIOLOGY [place], [place] [address] (Wo rk) 09/05/2022 Office Visit Cardiology Trinity Reid MD [facility] CARDIOLOGY [place], [place] [address] (Wo rk) documented as of [...] fibrillation documented in this encounter Care Teams Imaging Assistant Relationship Specialty Start Date End Date Bobby Das MD PCP - General 10/02/[address] [place] [address] [place] [phone] documented as of this encounter
--- OUTSIDE RECORDS SUMMARY | 2022-07-19 13:18 | XMS_ITS | Encounter Summary ---
:1940 Author Organization [facility] [place] [address] Care Team Providers Name Role Phone Bobby Das MD Primary Care Provider Reason for Visit Reason Comments Dizziness Auth/Cert Specialty Diagnoses / Procedures Referred By Contact Refer red To Contact Diagnoses GIB (gastrointestinal bleeding) Abe [facility] [place] [address] Referral ID Status Reason Start Date Expiration Date Visits Requ ested Visits Authorized [id number] 1 1 Encounter Details Date Type Department Care Team Description 05/31/[address] [facility] Giovani Ponce, EGD, UPPER GI [facility] Bobby [place] [address] [facility] [phone] [address] [place] [address] Social History Tobacco [...] switching to a different bloodthinner with the interventional radiologist outpatient. Call your doctor or seek medical [...] switchingto a different blood thinner with your interventional radiologist as an outpatient Stopped Medications - Aspirin - Valsartan - Speak with your interventional radiologist about the timing of restarting this Follow-up Appointments Future Appointments Date Time Provider Department Center 06/10/2022 11:00 AM Loretta Cohen MD [facility] 06/13/2022 7:30 AM Edson [place]os [place] [facility] VAS LAB [facility] 06/13/2022 8:00 AM Fito Summers MD [facility] V SURG [facility] 06/13/2022 10:00 AM Alan Reid MD [facility] CARD [address] [place] [address] Your Inpatient Medical Team at [facility] Name(s) of your inpatient provider(s): Dr. John Ames For questions regarding issues relating to your hospitalization on the Hospital Medicine Service, please contact your inpatient physician through the [facility] Law Researcher [phone]. Issues after hours and on weekends will be handled by the Hospitalist staff on-call. Your Primary Care Provider Bobby Das MD [phone] Future Appointments and Orders Future Appointments and Orders Future Appointments Provider Department Dept Phone 06/10/2022 11:00 AM Loretta Cohen MD Dermatology at [facility] Arrive at: Survey Research Analyst [address] [place] [phone] 06/13/2022 7:30 AM Edson [place]os [place] Vascular Lab at [facility] Arrive at: Survey Research Analyst Area 06/13/2022 8:00 AM Fito Summers MD Vascular Surgery at [facility] Arrive at: [employer] Research Analyst Area 06/13/2022 10:00 AM Alan Reid MD Cardiology at [facility] Arrive at: Survey Research Analyst Area 4A [phone] For questions regarding this document or issues relating to this hospitalization on the Medical Service, please contact your inpatient physician through the [facility] Law Researcher . Issues after hours and on weekends [...] switching to a different bloodthinner with the interventional radiologist outpatient. Call your doctor or seek medical [...] switchingto a different blood thinner with your interventional radiologist as an outpatient Stopped Medications - Aspirin - Valsartan - Speak with your interventional radiologist about the timing of restarting this Follow-up Appointments Future Appointments Date Time Provider Department Center 06/10/2022 11:00 AM Loretta Cohen MD [facility] 06/13/2022 7:30 AM Edson [place] [facility] VAS LAB [facility] 06/13/2022 8:00 AM Fito Summers MD [facility] V SURG [facility] 06/13/2022 10:00 AM Alan Reid MD [facility] CARD [address]A [facility] Your Inpatient Medical Team at [facility] Name(s) of your inpatient provider(s): Dr. John Ames For questions regarding issues relating to your hospitalization on the Hospital Medicine Service, please contact your inpatient physician through the [facility] Law Researcher [phone]. Issues after hours and on weekends will be handled by the Hospitalist staff on-call. Your Primary Care Provider Bobby Das MD [phone] documented in this encounter Medications at Time [...] 04/12/20 21 (FLONASE) 50 mcg/actuation Nare route [place], Suspension daily as needed. fluorouraciL (EFUDEX) 5 [...] spent >30 minutes (Day of Discharge Code 00504) involved in the final examination of the [...] from the original note were not included. [facility] Medicine Progress Note [place] Team - Pager #[phone] Admit Date: 05/31/2022 Name: Koko Zamora : [...] cardiology to discuss antiplatelet (ISO bleed and correction), following. ?? #CAD s/p stenting recently #HFrEF [...] Kurt Ames MD Internal Medicine, PGY-1 Medicine [place] Team #[id number] Associated attestation - John Jolley MD - [...] from the original note were not included. [facility] Medicine (#[id number]) History and Physical Patient info: Name: Koko Zamora : 1940 PCP: Bobby Das MD PCP phone number: [phone] Date of Admission: 05/31/2022 ( Hospital Day [...] 11 ??? fluticasone propionate (FLONASE) 50 mcg/actuation [place], Suspension as needed. ??? fluorouraciL (EFUDEX) [...] Gas) No results found for: PHART, PO2ART, SNP2FEX, BGS0OZL Microbiology: N/A Pertinent radiology/diagnostic studies: Recent prior [...] Status: Full Arpita Valle MD, PGY-3 05/31/2022 [facility] Medicine # [id number] Attending Staff [...] 05/31/2022 3:58 PM EDT [facility]Ps. Upon arrival to pt's [...] 10:50 AM EDT Pt brought to by associate professor of radiology Brittany Ramirez MD - 05/31/2022 10:40 AM [...] have questions please contact the health healthcare consultant that requested your imaging first. Electronically signed by: Jl Zuluaga MD, [facility] ([phone]), at 05/31/2022 2:39 PM XR Chest PA [...] have questions please contact the health healthcare consultant that requested your imaging first. Electronically signed by: Alan Brink MD, [facility] ([phone]), at 05/31/2022 11:33 AM ED Course as [...] recommendations from Brittany Tavares MD Resident 05/31/22 [id number] Associated attestation - Regina Hinds MD - [...] soft blood pressures, MD made aware. 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 Patient reported [...] not included. [place] [address] INPATIENT CARDIOLOGY CONSULT NOTE Date of Consultation: 06/01/2022 Admit Date: 05/31/2022 Place of Service: IS86/IS86-A Referring Attending: REGINA HINDS COLEMAN W FRIEDMAN, HARLEY P Responsible Elementary School Teacher'S Aide: Dr. Rizo Hospital Day 1 day Reason for Consult: Antiplatelet/anticoagulation s/p pci and afib, with GI bleed HPI: Koko Zamora is a 81 y.o. male with a cardiac history significant for remote mitral valve repair (2000), pre-DM, HLD, significant alcohol use, tobacco use, Afib on xarelto, ischemic systolic heartfailure (recent [facility] 05/20/2022 with 2V disease OM1 and distal RCA, had ostial LCX and LCx stent) who presented to [facility] on 05/31/2022 for GI bleed. Patient presented [...] time ??? fluticasone propionate (FLONASE) 50 mcg/actuation [place], Suspension 1 spray by Each Nare [...] 3.5 guiding catheter and a 3.5 Fr [facility] [place] [facility] 20 Mhz. Imaging was successful. Image [...] A premounted 2.75 x 30 mm Rudy Glacier (AMPARO) was deployed with a maximum inflation [...] may require modification of this regimen. Consult [facility] Interventional Cardiology for questions. The 1 year [...] Hb drop. Unknown source. has had a [facility] with stent placed and revascularization of left lower extremity within the past two weeks, recently on anticoagulation Unknown source of bleeding TECHNIQUE: Helical CT of the abdomen and pelvis was performed before and after the intravenous administration contrast utilizing GI bleed protocol. Administered 125.0 ml of OMNIPAQUE 350.00 mg/ml. Oral contrast was not administered. COMPARISON: 05/15/2022 from [facility] FINDINGS: GI Tract: Pre-contrast: No bowel [...] have questions please contact the health healthcare consultant that requested your imaging first. Electronically signed by: Jl Zuluaga MD, [facility] ([phone]), at 05/31/2022 2:39 PM [facility] 48 Hrs-15 [...] have questions please contact the health healthcare consultant that requested your imaging first. Electronically signed by: Alan Brink MD, [facility] ([phone]), at 05/31/2022 11:33 AM LABS Recent Labs [...] on xarelto, ischemic systolic heart failure (recent [facility] 05/20/2022 with 2V disease OM1 and distal RCA, had ostial LCX and LCx stent), recent admission for acutelimb ischemia LLE, where he had left common femoral transverse arteriotomy and primary repair, thromboembolectomy of the SFA, profunda and common femoral artery with 4 compartment fasciotomies, who presented to [facility] on 05/31/2022 for GI bleed. Cardiology consulted [...] attestation for additional insight. Rossy Anaya MD [facility] Help Desk Associate, PGY-5 Inpatient Cardiology Consults Pager #[phone] Please check Qgenda for on-call cardiology consults fellow/team during weekdays. Associated attestation - Rhys Rizo MD - 06/02/2022 11:44 AM EDT I have seen the patient in person and reviewed Dr. Anyaa's above history and I agree with the [...] A&Ox 4. On room air. VSS. 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 Adequate urine output, urinal at bedside, [...] 180 days) Any patient receiving care in [place] must abide by [place] law. The hierarchy [...] (i) The agent with financial power of airplane engineer or a conservator appointed in accordance with RSA 464-A. (j) The guardian of the patient???s estate. Advance Care Planning: Attempt Cardiopulmonary Resuscitation - Inpatient <no information> -Advanced Directive: No, need to discuss ( rUsula Zamora - per surrogacy) Current Coping/Education/Information Needs: [...] walker - rolling Home Address confirmed as: [address] [place] [id number] Social & Family Supports: All names listed below confirmed with patient as current and correct Extended Emergency Contact Information Primary Emergency Contact: Ursula Zamora Address: [address] [place] [id number] [facility] Relation: Spouse Current Care Provided by: [...] Type: *No Product type* / Secondary Insurance: [facility] Secondary Insurance? (Only Medicare A&B): Yes ; Prescription Coverage: Yes Preferred Pharmacy: [facility] [address] [place], [place] - [address] [place] [address] [place] [address] [place] Status: Patient is a : No Primary Care Provider: Bobby Das MD [phone] Patient/Caregiver Goals of Treatment: Patient plans to [...] with transition of care planning. ASH [place] Textile Conservator [facility] Medicine/ Medical Specialties Pager- [...] Operative Note Patient Name: Koko Zamora : [id number] MR#: [id number] Case Date: 05/31/2022 Surgeon: Surgeon(s) and Role: [...] stomach. He has had colonoscopies before in [place] - notes first ever he had 6 [...] sounds, tympanic to percussion RECTAL: performed with pvc loader present, no overt masses, fissures, external hemorrhoids, [...] have questions please contact the health healthcare consultant that requested your imaging first. Electronically signed by: Alan Brink MD, [facility] ([phone]), at 05/31/2022 11:[address] Abdomen & [...] Negra Collins MD [facility] GASTROENTEROLOGY DEPT [place], [place] [address] (Wo rk) 09/05/2022 Appointment Cardiology Trinity Reid MD [facility] CARDIOLOGY [place], [place] [address] (Wo rk) 09/05/2022 Office Visit Cardiology Trinity Reid MD [facility] CARDIOLOGY [place], [place] [address] (Wo rk) documented as of [...] LABORATORY Neutr Abs (ANC) 4.44 1.70 - [facility] 6.10 [facility] x10(3)/[facility] LABORATORY Lymphocytes % 25.2 % [facility] LABORATORY Lymphocytes Abs 1.8 0.9 - 3.2 [facility] x10(3)/[facility] LABORATORY Monocytes % 10.0 % [facility] LABORATORY Monocyte Abs 0.7 0.3 - 0.9 [facility] x10(3)/[facility] LABORATORY Eosinophils % 2.1 % [facility] LABORATORY Eosinophils Abs 0.2 0.0 - 0.4 [facility] x10(3)/[facility] LABORATORY Basophils % 0.7 % [facility] LABORATORY Basophils Abs 0.0 0.0 - 0.1 [facility] x10(3)/[facility] LABORATORY Immature Gran % 0.70 % ST. [...] Organization Address City/State/[place] [address] (ABNORMAL) Hemogram (06/02/2022 8:20 AM EDT) Analysis Performed At Patho logist Time Signature WBC 7.2 4.0 - 9.5 [facility] x10(3)/[facility] LABORATORY RBC 2.74 (L) 4.58 - [facility] 5.54 [facility] x10(6)/[facility] LABORATORY Hemoglobin 8.7 (L) 13.7 - [facility] 16.5 g/dL [facility] LABORATORY Hematocrit 25.7 (L) 40.5 - [place] [place] 48.5 % [facility] LABORATORY MCV 93.8 (H) 82.9 - [place] [place] 93.1 [facility] LABORATORY MCH 31.8 27.5 - [place] 32.1 pg [facility] LABORATORY MCHC 33.9 32.0 - [place] [place] 35.7 g/dL [facility] LABORATORY Platelets 260 145 - 357 [facility] x10(3)/[facility] LABORATORY RDWSD 51.0 (H) 36.0 - [place] 45.0 [facility] LABORATORY RDWCV 14.9 (H) 11.4 - [facility] X[facility]O 13.8 % [facility] LABORATORY MPV 10.0 7.6 - 12.9 [facility] LABORATORY nRBC % Auto 0.0 % [facility] LABORATORY nRBC Abs Auto 0.000 0.000 - [facility] XIAO 0.000 [facility] x10(3)/[facility] LABORATORY Specimen Anatomical Collection Method Collection Time Receive d Time (Source) Location / / Volume Laterality Blood 06/02/2022 8:20 AM 8:25 EDT AM EDT Resulting Agency Comment Spec In Lab Kurt Ames MD HEMATOLOGY ORDERABLES Performing Organization Address City/State/[place] [address] Heparin (unfractionated) Level (06/02/2022 6:30 AM EDT) P athologist Signature Heparin UFH 0.39 IU/mL [facility] LABORATORY Comment: Heparin (anti-Xa) levels should be [...] Victor MD HEMATOLOGY ORDERABLES Performing Organization Address City/[facility]/ZIP Code Phon e Number [address] Heparin (unfractionated) Level (06/02/2022 12:30 AM EDT) athologist Signature Heparin UFH 0.81 IU/mL [facility] LABORATORY Comment: Heparin (anti-Xa) levels should be [...] Victor MD HEMATOLOGY ORDERABLES Performing Organization Address City/[facility]/[place]IP [place] [address] Magnesium (06/02/2022 12:30 AM EDT) P athologist Signature Magnesium 0.83 0.69 - 1.07 [facility] mmol/L [facility] LABORATORY Specimen Anatomical Collection Method Collection Time Receive d Time (Source) Location / / Volume Laterality Blood 06/02/2022 12:30 06/02/2022 AM EDT 12:40 AM EDT Resulting Agency Comment Spec In Lab Mahendra Victor MD CHEMISTRY ORDERABLES Performing Organization Address City/State/[place] [address] (ABNORMAL) Basic Metabolic Panel (non-fasting) (06/02/2022 12:30 AM EDT) P athologist Signature Glucose Lvl 151 65 - 199 [facility] mg/dL [facility] LABORATORY Comment: Diabetes: >=200 mg/dL plus symp [...] Organization Address City/State/[place] [address] (ABNORMAL) Differential, Automated (06/01/2022 7:29 PM EDT) athologist Signature Neutrophils % 68.8 % [facility] LABORATORY Neutr Abs (ANC) 5.34 1.70 - [facility] 6.10 [facility] x10(3)/[facility] LABORATORY Lymphocytes % 19.6 % [facility] LABORATORY Lymphocytes Abs 1.5 0.9 - 3.2 [facility] x10(3)/[facility] LABORATORY Monocytes % 8.1 % [facility] LABORATORY Monocyte Abs 0.6 0.3 - 0.9 [facility] x10(3)/[facility] LABORATORY Eosinophils % 1.8 % [facility] LABORATORY Eosinophils Abs 0.1 0.0 - 0.4 [facility] x10(3)/[facility] LABORATORY Basophils % 0.8 % [facility] LABORATORY Basophils Abs 0.1 0.0 - 0.1 [facility] x10(3)/[facility] LABORATORY Immature Gran % 0.90 % [facility] LABORATORY Comment: Immature [...] Organization Address City/State/[place] [address] (ABNORMAL) Hemogram (06/01/2022 7:29 PM EDT) Analysis Performed At Patho logist Time Signature WBC 7.8 4.0 - 9.5 [facility] x[facility](3[facility] LABORATORY RBC 2.65 (L) 4.58 - [facility] 5.54 [facility] x10(6)/[facility] LABORATORY Hemoglobin 8.3 (L) 13.7 - [facility] g/dL [facility] LABORATORY Hematocrit 24.8 (L) 40.5 - [facility] 48.5 % [facility] LABORATORY MCV 93.6 (H) 82.9 - [facility] 93.1 [facility] LABORATORY MCH 31.3 27.5 - [facility] 32.1 pg [facility] LABORATORY MCHC 33.5 32.0 - [facility] 35.7 g/dL [facility] LABORATORY Platelets 263 145 - 357 [facility] x10(3)/[facility] LABORATORY RDWSD 52.8 (H) 36.0 - [facility] XIAO 45.0 [facility] LABORATORY RDWCV 15.4 (H) 11.4 - [facility] XIAO 13.8 % [facility] LABORATORY MPV 10.4 7.6 - 12.9 [facility] nRBC % Auto 0.0 % [facility] LABORATORY nRBC Abs Auto 0.000 0.000 - [facility] 0.000 [facility] x10(3)/[facility] LABORATORY Specimen Anatomical Collection Method Collection Time Receive d Time (Source) Location / / Volume Laterality Blood 06/01/2022 7:29 PM 2 7:29 EDT PM EDT Resulting Agency Comment Spec In Lab Kurt Ames MD HEMATOLOGY ORDERABLES Performing Organization Address City/State/ZIP Code Phon e Number [address] Heparin (unfractionated) Level (06/01/2022 7:29 PM EDT) P athologist Signature Heparin UFH 0.81 IU/mL [facility] LABORATORY Comment: Heparin (anti-Xa) levels should be [...] Organization Address City/State/ZIP Code Phon e Number [address] (ABNORMAL) Heparin (unfractionated) Level (06/01/2022 11:32 AM EDT) Patholo gist Method Time Signature Heparin UFH 1.05 IU/mL [facility] (Critical) [facility] LABORATORY Comment: Critical Result called by ?? [...] Organization Address City/State/[place] [address] (ABNORMAL) Differential, Automated (06/01/2022 5:56 AM EDT) [facility] Method Time Signature Neutrophils % 62.7 % [facility] LABORATORY Neutr Abs (ANC) 6.11 (H) 1.70 - [facility] 6.10 [facility] x10(3)/[facility] LABORATORY Lymphocytes % 23.5 % [facility] LABORATORY Lymphocytes Abs 2.3 0.9 - 3.2 [facility] x10(3)/[facility] LABORATORY Monocytes % 10.0 % [facility] LABORATORY Monocyte Abs 1.0 (H) 0.3 - 0.9 [facility] x10(3)/[facility] LABORATORY Eosinophils % 2.2 % [facility] LABORATORY Eosinophils Abs 0.2 0.0 - 0.4 [facility] x10(3)/[facility] LABORATORY Basophils % 0.9 % [facility] LABORATORY Basophils Abs 0.1 0.0 - 0.1 [facility] x10(3)/[facility] LABORATORY Immature Gran % 0.70 % ST. [...] Organization Address City/State/[place] [address] (ABNORMAL) Hemogram (06/01/2022 5:56 AM EDT) Analysis Performed At Patho logist Time Signature WBC 9.7 (H) 4.0 - 9.5 [facility] x10(3)/[facility] LABORATORY RBC 2.83 (L) 4.58 - [facility] 5.54 [facility] x10(6)/[facility] LABORATORY Hemoglobin 9.0 (L) 13.7 - [facility] 16.5 g/dL [facility] LABORATORY Hematocrit 26.7 (L) 40.5 - [facility] 48.5 % [facility] LABORATORY MCV 94.3 (H) 82.9 - [facility] 93.1 [facility] LABORATORY MCH 31.8 27.5 - [facility] 32.1 pg [facility] LABORATORY MCHC 33.7 32.0 - [facility] 35.7 g/dL [facility] LABORATORY Platelets 250 145 - 357 [facility] x10(3)/[facility] LABORATORY RDWSD 54.3 (H) 36.0 - [facility] 45.0 [facility] LABORATORY RDWCV 15.9 (H) 11.4 - [facility] 13.8 % [facility] LABORATORY MPV 10.5 7.6 - 12.9 [facility] LABORATORY nRBC % Auto 0.0 % [facility] LABORATORY nRBC Abs Auto 0.000 0.000 - [facility] 0.000 [facility] x10(3)/[facility] LABORATORY Specimen Anatomical Collection Method Collection Time Receive d Time (Source) Location / / Volume Laterality Blood 06/01/2022 5:56 AM 2 6:05 EDT AM EDT Resulting Agency Comment Spec In Lab Arpita Valle MD HEMATOLOGY ORDERABLES Performing Organization Address City/State/Z[place] [address] Heparin (unfractionated) Level (06/01/2022 4:30 AM EDT) P athologist Signature Heparin UFH 0.68 IU/mL [facility] LABORATORY Comment: Heparin (anti-Xa) levels should be [...] Victor MD HEMATOLOGY ORDERABLES Performing Organization Address City/[facility]/ZIP [place] [address] (ABNORMAL) Urinalysis with reflex Culture (06/01/2022 4:00 AM EDT) Patholo gist Method Time Signature Glucose UA 500 Negative [facility] (Critical) mg/dL [facility] LABORATORY Comment: Urinalysis result NOT critical without a combination of Glucose greater than or equal to 500 mg/dL AND Ketones greate r than or equal to 80 mg/dL Protein UA Negative Negative mg/dL [facility] LABORATORY Bilirubin UA Negative Negative mg/dL [facility] LABORATORY Comment: Clinical correlation required for [...] [facility] Nitrite UA Negative Negative [facility] LABORATORY Leukocytes UA Negative Negative [facility] LABORATORY Appearance UA Clear Clear [facility] Spec [place] UA >=1.030 (A) 1.005 - 1.030 [facility] Color UA Yellow Yellow [facility] Culture Reflexed No [facility] Specimen Anatomical Collection Method Collection Time Receive d Time (Source) Location / / Volume Laterality Clean Catch 06/01/2022 4:00 AM 2 4:26 Urine EDT AM EDT Resulting Agency Comment Spec In Lab Mahendra Victor MD URINE ORDERABLES Performing Organization Address City/[facility]/ZIP Code Phon e Number [address] Magnesium (06/01/2022 1:00 AM EDT) athologist Signature Magnesium 0.93 0.69 - 1.07 [facility] mmol/L [facility] Specimen Anatomical Collection Method Collection Time Receive d Time (Source) Location / / Volume Laterality Blood 06/01/2022 1:00 AM 2 1:37 EDT AM EDT Resulting Agency Comment Spec In Lab Mahendra Victor MD CHEMISTRY ORDERABLES Performing Organization Address City/[facility] Phon e Number [address] (ABNORMAL) Basic Metabolic Panel (non-fasting) (06/01/2022 1:00 AM EDT) athologist Signature Glucose Lvl 148 65 - 199 [facility] mg/dL [facility] Comment: Diabetes: >=200 mg/dL plus symp toms BUN 23 (H) 10 - 20 mg/dL [facility] Creatinine 0.78 (L) 0.80 - [...] mmol/L [facility] Anion Gap 9 5 - 15 mmol/L [facility] Calcium 8.6 8.5 - 10.5 mg/dL [facility] Estimated GFR 91 >=60 mL/min/1.73 m?? [facility] [...] Organization Address City/State/[place] [address] (ABNORMAL) Differential, Automated (06/01/2022 12:00 AM EDT) P athologist Signature Neutrophils % 64.6 % [facility] Neutr Abs (ANC) 5.60 1.70 - [facility] 6.10 [facility] x10(3)/[facility] LABORATORY Lymphocytes % 22.4 % [facility] Lymphocytes Abs 1.9 0.9 - 3.2 [facility] x10(3)/[facility] LABORATORY Monocytes % 9.5 % [facility] Monocyte Abs 0.8 0.3 - 0.9 [facility] x10(3)/[facility] LABORATORY Eosinophils % 2.1 % [facility] Eosinophils Abs 0.2 0.0 - 0.4 [facility] x10(3)/[facility] LABORATORY Basophils % 0.6 % [facility] Basophils Abs 0.0 0.0 - 0.1 [facility] x10(3)/[facility] LABORATORY Immature Gran % 0.80 % [facility] Comment: Immature [...] Organization Address City/State/[place] [address] (ABNORMAL) Hemogram (06/01/2022 12:00 AM EDT) Analysis Performed At Patho logist Time Signature WBC 8.7 4.0 - 9.5 [facility] x10(3)/[facility] LABORATORY RBC 2.77 (L) 4.58 - [facility] 5.54 [facility] x10(6)/[facility] LABORATORY Hemoglobin 8.6 (L) 13.7 - [place] 16.5 g/dL [facility]ATORY Hematocrit 25.7 (L) 40.5 - [facility] 48.5 % [facility] LABORATORY MCV 92.8 82.9 - [facility] 93.1 [facility] LABORATORY MCH 31.0 27.5 - [place] [facility] 32.1 pg [facility] LABORATORY MCHC 33.5 32.0 - [facility] 35.7 g/dL [facility] LAB[facility]ORY Platelets 260 145 - 357 [facility] x10(3)/[facility] LABORATORY RDWSD 51.9 (H) 36.0 - [facility] 45.0 [facility] LABORATORY RDWCV 15.5 (H) 11.4 - [facility] 13.8 % [facility] LABORATORY MPV 10.4 7.6 - 12.9 [facility] LABORATORY nRBC % Auto 0.0 % [facility] nRBC Abs Auto 0.000 0.000 - [facility] 0.000 [facility] x10(3)/[facility] LABORATORY Specimen (Source) Anatomical Collection Method Collection Time Re ceived Time Location / / Volume Laterality Blood 06/01/2022 06/01/2022 12:1 0 AM EDT Resulting Agency Comment Spec In Lab Arpita Valle MD HEMATOLOGY ORDERABLES Performing Organization Address City/State/ZIP [place] [address] (ABNORMAL) Differential, Automated (05/31/2022 9:17 PM EDT) P athologist Signature Neutrophils % 59.6 % [facility] Neutr Abs (ANC) 3.98 1.70 - [facility] 6.10 [facility] x10(3)/[facility] LABORATORY Lymphocytes % 27.5 % [facility] Lymphocytes Abs 1.8 0.9 - 3.2 [facility] x10(3)/[facility] LABORATORY Monocytes % 9.1 % [facility] Monocyte Abs 0.6 0.3 - 0.9 [facility] x10(3)/[facility] LABORATORY Eosinophils % 2.4 % [facility] Eosinophils Abs 0.2 0.0 - 0.4 [facility] x10(3)/[facility] LABORATORY Basophils % 0.7 % [facility] Basophils Abs 0.0 0.0 - 0.1 [facility] x10(3)/[facility] LABORATORY Immature Gran % 0.70 % ST. [...] Organization Address City/State/Z[place] [address] (ABNORMAL) Hemogram (05/31/2022 9:17 PM EDT) Analysis Performed At Patho logist Time Signature WBC 6.7 4.0 - 9.5 [facility] x10(3)/[facility] LABORATORY RBC 2.74 (L) 4.58 - [facility] 5.54 [facility] x10(6)/[facility] LABORATORY Hemoglobin 8.5 (L) 13.7 - [facility] 16.5 g/dL [facility] LAB[facility]ATORY Hematocrit 25.7 (L) 40.5 - [facility] 48.5 % [facility] LABORATORY MCV 93.8 (H) 82.9 - [facility] 93.1 fL [facility] LABORATORY MCH 31.0 27.5 - [facility] 32.1 pg [facility] LABORATORY MCHC 33.1 32.0 - [facility] [place] 35.7 g/dL [facility] LABORATORY Platelets 233 145 - 357 [facility] [place] x10(3)/[facility] LABORATORY RDWSD 51.9 (H) 36.0 - [place] [place] 45.0 [facility] RDWCV 15.3 (H) 11.4 - [facility] XIAO 13.8 % [facility] MPV 10.3 7.6 - 12.9 [facility] XIAO [facility] LABORATORY nRBC % Auto 0.0 % [facility] nRBC Abs Auto 0.000 0.000 - [facility] 0.000 [facility] x10(3)/[facility] LABORATORY Specimen Anatomical Collection Method Collection Time Receive d Time (Source) Location / / Volume Laterality Blood 05/31/2022 9:17 PM 9:25 EDT PM EDT Resulting Agency Comment Spec In Lab Arpita Valle MD HEMATOLOGY ORDERABLES Performing Organization Address City/State/[place] [address] Transfuse RBC (05/31/2022 7:36 PM EDT) Regina Hinds MD NURSING TREATMENT ORDERABLES - BLOOD ADMIN Transfuse RBC (05/31/2022 7:36 PM EDT) Regina Hinds MD NURSING TREATMENT ORDERABLES - BLOOD ADMIN UPPER GI ENDOSCOPY (05/31/2022 3:37 PM EDT) Component Value Ref Test Analysis Performed At [facility] Range Method Time Signature UPPER GI [facility] PROVATION ENDOSCOPY Endoscopy Procedure Date: 05/31/2022 3:37 PM ? Patient Name: Koko Zamora ? Date of : 1940 ? Age: 81 ? Order #: [id number] ? Instrument Name: [id number] ? Procedure: ? Upper GI endoscopy Indications: [...] Procedure Code(s): ? --- Professional --- ? 29817, Esophagogastroduode noscopy, ? flexible, transoral; with control [...] stomach ? and duodenum CPT copyright 2021 [employer]. All rights reserved. The codes documented in this report are preliminary and upon quarry plug and feather driller review may be revised to meet current [...] have questions please contact the health healthcare consultant that requested your imaging first. ? Electronically signed by: Jl walter MD, [facility] ([phone]), at 05/31/2022 2:39 PM Narrative 05/31/2022 2:39 PM EDT EXAMINATION: CT ABDOMEN AND PELVIS WWO CONTRAST (GI BLEED) CLINICAL HISTORY: Significant Hb drop. U nknown source. has had a [facility] with stent placed and revascularization of [...] enlarged lymph nodes. Vasculature: Patent common iliac, etl database developer al iliac, and common femoral arteries bilaterally. [...] enlarged lymph nodes. Vasculature: Patent common iliac, etl database developer al iliac, and common femoral arteries bilaterally. [...] have questions please contact the health healthcare consultant that requested your imaging first. Regina Hinds MD G CT ORDERABLES Type and Screen Validity (05/31/2022 1:43 PM EDT) [facility] gist Method Time Signature T&S only valid [facility] at [facility] LAB[facility]ATORY Comment: This Type and Screen result is only valid at the [facility] Specimen Anatomical Collection Method Collection Time Receive d Time (Source) Location / / Volume Laterality Blood 05/31/2022 1:43 PM 2 1:57 EDT PM EDT Resulting Agency Comment Spec In Lab Regina Hinds MD BLOOD BANK ORDERABLES Performing Organization Address City/State/Z[place] [address] ABORH Recheck Status (05/31/2022 1:43 PM EDT) [facility] Method Time Signature ABORH Type Completed [facility] LABORATORY Specimen Anatomical Collection Method Collection Time Receive d Time (Source) Location / / Volume Laterality Blood 05/31/2022 1:43 PM 2 1:57 EDT PM EDT Resulting Agency Comment Spec In Lab Regina Hinds MD BLOOD BANK ORDERABLES Performing Organization Address City/[facility]/Z[place] [address] Antibody screen (05/31/2022 1:43 PM EDT) [facility] Signature Ab Screen Negative [facility] LABORATORY Expires at 06/03/2022 [facility] [id number] on: [facility] LABORATORY Specimen Anatomical Collection Method Collection Time Receive d Time (Source) Location / / Volume Laterality Blood 05/31/2022 1:43 PM 2 1:57 EDT PM EDT Resulting Agency Comment Spec In Lab Regina Hinds MD BLOOD BANK ORDERABLES Performing Organization Address City/[facility]/Z[place] [address] ABO/Rh Typing (05/31/2022 1:43 PM EDT) P athologist Signature ABORh Type O Pos [facility] Specimen Anatomical Collection Method Collection Time Receive d Time (Source) Location / / Volume Laterality Blood 05/31/2022 1:43 PM 2 1:57 EDT PM EDT Resulting Agency Comment Spec In Lab Regina Hinds MD BLOOD BANK ORDERABLES Performing Organization Address City/[facility]/Z[place] [address] Prepare RBC (05/31/2022 1:35 PM EDT) P athologist Signature Dispensed? Yes [facility] Specimen Anatomical Collection Method Collection Time Receive d Time (Source) Location / / Volume Laterality Blood 05/31/2022 1:35 PM 2 1:30 EDT PM EDT Regina Hinds MD BLOOD BANK ORDERABLES Performing Organization Address City/[facility] [place] [address] Prepare RBC (05/31/2022 1:25 PM EDT) P athologist Signature Dispensed? Yes [facility] Specimen Anatomical Collection Method Collection Time Receive d Time (Source) Location / / Volume Laterality Blood 05/31/2022 1:25 PM 2 1:23 EDT PM EDT Regina Hinds MD BLOOD BANK ORDERABLES Performing Organization Address [facility] Phon e Number [address] (ABNORMAL) Differential, Automated (05/31/2022 12:44 PM EDT) P athologist Signature Neutrophils % 62.0 % [facility] Neutr Abs (ANC) 4.71 1.70 - [facility] 6.10 [facility] x10(3)/[facility] LABORATORY Lymphocytes % 24.1 % [facility] Lymphocytes Abs 1.8 0.9 - 3.2 [facility] x10(3)/[facility] LABORATORY Monocytes % 10.8 % [facility] Monocyte Abs 0.8 0.3 - 0.9 [facility] x10(3)/[facility] LABORATORY Eosinophils % 1.6 % [facility] Eosinophils Abs 0.1 0.0 - 0.4 [facility] x10(3)/[facility] LABORATORY Basophils % 0.7 % [facility] Basophils Abs 0.0 0.0 - 0.1 [facility] x10(3)/[facility] LABORATORY Immature Gran % 0.80 % [facility] Comment: Immature [...] Organization Address City/State/Z[place] [address] (ABNORMAL) Hemogram (05/31/2022 12:44 PM EDT) Analysis Performed At Patho logist Time Signature WBC 7.6 4.0 - 9.5 [facility] x10(3)/[facility] LABORATORY RBC 2.11 (L) 4.58 - [facility]IAO 5.54 [facility] x10(6)/[facility] LABORATORY Hemoglobin 6.9 (L) 13.7 - [facility] 16.5 g/dL [facility] LABORATORY Hematocrit 20.8 (L) 40.5 - [facility] XIAO 48.5 % [facility] LABORATORY MCV 98.6 (H) 82.9 - [facility] 93.1 [facility] LABORATORY MCH 32.7 (H) 27.5 - [facility] 32.1 pg [facility] LABORATORY MCHC 33.2 32.0 - [facility] 35.7 g/dL [facility] LABORATORY Platelets 255 145 - 357 [facility] x10(3)/[facility] LABORATORY RDWSD 47.7 (H) 36.0 - [facility] 45.0 [facility] LABORATORY RDWCV 13.4 11.4 - [facility] 13.8 % [facility] LABORATORY MPV 10.7 7.6 - 12.9 [facility] LABORATORY nRBC % Auto 0.0 % [facility]ORATORY nRBC Abs Auto 0.000 0.000 - [facility] 0.000 [facility] x10(3)/[facility] LABORATORY Specimen Anatomical Collection Method Collection Time Receive d Time (Source) Location / / Volume Laterality Blood 05/31/2022 12:44 05/31/2022 PM EDT 12:57 PM EDT Resulting Agency Comment Spec In Lab Brittany Ramirez MD HEMATOLOGY ORDERABLES Performing Organization Address City/State/[place] [address] (ABNORMAL) BLOOD GAS 2 VENOUS (05/31/2022 11:24 AM EDT) P athologist Signature pH [place] 7.38 7.32 - [facility] 7.42 [facility] LABORATORY pCO2 [place] 40 (L) 41 - 51 [facility] LABORATORY pO2 [place] 18 (L) 25 - 40 [facility] LABORATORY HCO3 [place] 23.3 mmol/L [facility] BE [place] -1.8 mmol/L [facility] Hgb Blood Gas 7.0 (L) 13.7 - [facility] 16.5 g/dL [facility] LABORATORY O2HB [place] 24.3 % [facility] COHB [place] 1.4 % [facility] Comment: Nonsmokers: 0.5-1.5% COHB Smokers: Variable, but usually less than 10% Toxic: 20-30% COHB Lethal: Greater than 60% COHB METHB [place] 1.7 (H) <=1.5 % [facility] Na Whole Blood 137 135 - 145 mmol/L [facility] K Whole Blood 3.9 [...] Lactate WB 1.4 0.5 - 2.2 mmol/L [facility] BGas Source Venous [facility]OR[facility]ORY Specimen Anatomical Collection Method Collection Time Receive d Time (Source) Location / / Volume Laterality Blood 05/31/2022 11:24 05/31/2022 AM EDT 11:24 AM EDT Regina Hinds MD CHEMISTRY ORDERABLES Performing Organization Address City/[facility]/ZIP Code Phon e Number [address] TSH [place] (05/31/2022 11:20 AM EDT) P athologist Signature TSH 1.67 0.27 - 4.20 [facility] mcIU/mL [facility]ATORY Comment: Reference Interval (mcIU/mL): Females: ??First Trimester: 0.23-3.88 ??Second Trimester: 0.22-3.90 ??Third Trimester: 0.44-4.66 Specimen Anatomical Collection Method Collection Time Receive d Time (Source) Location / / Volume Laterality Blood 05/31/2022 11:20 05/31/2022 AM EDT 11:28 AM EDT Resulting Agency Comment Spec In Lab Regina Hinds MD CHEMISTRY ORDERABLES Performing Organization Address City/[facility]/ZIP Code Phon e Number [address] XR Chest PA & [...] have questions please contact the health healthcare consultant that requested your imaging first. ? Electronically signed by: Alan strong MD, [facility] ([phone]), at 05/31/2022 11:33 AM Narrative 05/31/2022 11:33 [...] have questions please contact the health healthcare consultant that requested your imaging first. Electronically signed by: Alan strong MD, [facility] ([phone]), at 05/31/2022 11:33 AM Regina Hinds MD IMG DX ORDERABLES Lipase (05/31/2022 10:50 AM EDT) athologist Signature Lipase 41 0 - 60 [facility] unit/L [facility] LABORATORY Specimen Anatomical Collection Method Collection Time Receive d Time (Source) Location / / Volume Laterality Blood Venous Draw / 05/31/2022 10:50 05/31/2022 Unknown AM EDT 11:11 AM EDT Resulting Agency Comment Spec In Lab Zain Champion MD CHEMISTRY ORDERABLES Performing Organization Address City/State/ZIP Code Phon e Number [place] [id number] HOSPITAL LAB[address]ORY Drive (ABNORMAL) Hepatic Function Panel (05/31/2022 10:50 AM EDT) Analysis Performed At Patho logist Time Signature Total Protein 6.4 6.1 - 8.0 [facility] g/dL [facility] LABORATORY Albumin 4.1 3.2 - 5.2 [facility] g/dL [facility]ORY AST 24 0 - 39 [facility] unit/L [facility] ALT 44 0 - 55 [facility] unit/L [facility] Alk Phos 63 40 - 130 [facility] unit/L [facility]ORY Total <0.2 (L) 0.2 - 1.3 [facility] Bilirubin mg/dL [facility]ORY Bili, Direct 0.1 0.0 - 0.3 [facility] mg/dL [facility]ORY Specimen Anatomical Collection Method Collection Time Receive d Time (Source) Location / / Volume Laterality Blood Venous Draw / 05/31/2022 10:50 05/31/2022 Unknown AM EDT 11:11 AM EDT Resulting Agency Comment Spec In Lab Zain Champion MD CHEMISTRY ORDERABLES Performing Organization Address City/[facility]/ZIP Code Phon e Number [address] Blue Tube HOLD (05/31/2022 10:50 AM EDT) athologist Signature Blue Hold Sample in [facility] LABORATORY Specimen Anatomical Collection Method Collection Time Receive d Time (Source) Location / / Volume Laterality Blood Venous Draw / 05/31/2022 10:50 05/31/2022 Unknown AM EDT 11:05 AM EDT Brittany Ramirez MD HEMATOLOGY ORDERABLES Performing Organization Address City/[facility]/ZIP Code Phon e Number [address] (ABNORMAL) Differential, Automated (05/31/2022 10:50 AM EDT) athologist Signature Neutrophils % 66.9 % [facility] LABORATORY Neutr Abs (ANC) 5.58 1.70 - [facility] 6.10 [facility] x10(3)/[facility] LABORATORY Lymphocytes % 22.2 % [facility]ORATORY Lymphocytes Abs 1.8 0.9 - 3.2 [facility] x10(3)/[facility] LABORATORY Monocytes % 7.8 % [facility] LABORATORY Monocyte Abs 0.6 0.3 - 0.9 [facility] x10(3)/[facility] LABORATORY Eosinophils % 1.2 % [facility]ORY Eosinophils Abs 0.1 0.0 - 0.4 [facility] x10(3)/[facility] LABORATORY Basophils % 0.7 % [facility]ORATORY Basophils Abs 0.1 0.0 - 0.1 [facility] x10(3)/[facility] LABORATORY Immature Gran % 1.20 % [facility] LABORATORY Comment: Immature [...] Organization Address City/State/[place] [address] (ABNORMAL) Hemogram (05/31/2022 10:50 AM EDT) Analysis Performed At Patho logist Time Signature WBC 8.3 4.0 - 9.5 [facility] x10(3)/[facility] LABORATORY RBC 2.26 (L) 4.58 - [facility] 5.54 [facility] x10(6)/[facility] LABORATORY Hemoglobin 7.4 (L) 13.7 - [facility] 16.5 g/dL [facility] LAB[facility]ATORY Hematocrit 22.3 (L) 40.5 [facility] 48.5 % [facility] LAB[facility]ATORY MCV 98.7 (H) 82.9 - [facility] 93.1 [facility] LABORATORY MCH 32.7 (H) 27.5 - [facility] 32.1 pg [facility] LABORATORY MCHC 33.2 32.0 - [facility] 35.7 g/dL [facility] LABORATORY Platelets 283 145 - 357 [facility] x10(3)/[facility] LABORATORY RDWSD 47.0 (H) 36.0 - [facility] 45.0 [facility] LABORATORY RDWCV 13.4 11.4 - [facility] 13.8 % [facility] LABORATORY MPV 10.8 7.6 - 12.9 [facility] LABORATORY nRBC % Auto 0.0 % [facility] LABORATORY nRBC Abs Auto 0.000 0.000 - [place] [place] 0.000 [facility] x10(3)/[facility] LABORATORY Specimen Anatomical Collection Method Collection Time Receive d Time (Source) Location / / Volume Laterality Blood 05/31/2022 10:50 05/31/2022 AM EDT 11:03 AM EDT Resulting Agency Comment Spec In Lab Brittany Ramirez MD HEMATOLOGY ORDERABLES Performing Organization Address City/State/ZIP Code Phon e Number [address] Phosphorus (05/31/2022 10:50 AM EDT) P athologist Signature Phosphorus 3.2 2.5 - 4.5 [place] [place] mg/dL [facility] LABORATORY Specimen Anatomical Collection Method Collection Time Receive d Time (Source) Location / / Volume Laterality Blood 05/31/2022 10:50 05/31/2022 AM EDT 11:03 AM EDT Resulting Agency Comment Spec In Lab Regina Hinds MD CHEMISTRY ORDERABLES Performing Organization Address City/State/ZIP Code Phon e Number [address] Magnesium (05/31/2022 10:50 AM EDT) P athologist Signature Magnesium 0.93 0.69 - 1.07 [place] mmol/L [facility] LABORATORY Specimen Anatomical Collection Method Collection Time Receive d Time (Source) Location / / Volume Laterality Blood 05/31/2022 10:50 05/31/2022 AM EDT 11:03 AM EDT Resulting Agency Comment Spec In Lab Regina Hinds MD CHEMISTRY ORDERABLES Performing Organization Address City/State/[place] [address] (ABNORMAL) pro-Brain Natriuretic Peptide (05/31/2022 10:50 AM EDT) P athologist Signature ProBNP 1,077 (H) <=449 ILDA WHEATLEYXIAO pg/mL [facility] Specimen Anatomical Collection Method Collection Time Receive d Time (Source) Location / / Volume Laterality Blood 05/31/2022 10:50 05/31/2022 AM EDT 11:03 AM EDT Resulting Agency Comment Spec In Lab Regina Hinds MD CHEMISTRY ORDERABLES Performing Organization Address City/[facility]/[place]IP [place] [address] Troponin (05/31/2022 10:50 AM EDT) athologist Signature Troponin-T <0.01 0.00 - 0.00 [facility] ng/mL [facility] Comment: The 99th percentile for Troponin T is le ss than 0.01 ng/mL, any detectable cTnT concentration using this assay should be considered elevated. According to the third universal definit ion of myocardial infarction the following criteria with a clinical prese ntation consistent with acute myocardial ischemia meets the diagnosis for a myocardial infarction (ID). Detection of a rise and/or fall of [...] additional sample may be indicated. Reference: Third [place] Definition of Myocardial Infarction. Journal of the [place] [employer] 2012;60:1581-98 Specimen Anatomical Collection Method Collection Time Receive d Time (Source) Location / / Volume Laterality Blood 05/31/2022 10:50 05/31/2022 AM EDT 11:03 AM EDT Resulting Agency Comment Spec In Lab Regina Hinds MD CHEMISTRY ORDERABLES Performing Organization Address City/[facility]/[place] [address] (ABNORMAL) Basic Metabolic Panel (non-fasting) (05/31/2022 10:50 AM EDT) athologist Signature Glucose Lvl 223 (H) 65 - 199 [facility] mg/dL [facility] Comment: Diabetes: >=200 mg/dL plus symp toms BUN 39 (H) 10 - 20 mg/dL [facility] Creatinine 0.91 0.80 - 1.50 [...] - 15 mmol/L [facility] Calcium 9.1 8.5 - 10.5 mg/dL [facility] Estimated GFR 86 >=60 mL/min/1.73 m?? [facility] [...] Organization Address City/State/[place] [address] EKG 12 Lead (05/31/2022 10:11 AM EDT) Component Value Ref Range Test Analysis Performed Pathologis t Method Time At Signature Ventricular rate 106 BPM MUSE SYSTEM QRS Duration 122 ms MUSE SYSTEM Q-T Interval 368 ms MUSE SYSTEM QTC Calculated 488 ms MUSE SYSTEM (Bezet) Calculated R [place] -43 degrees MUSE SYSTEM Calculated T [place] 109 degrees MUSE SYSTEM INTERPRETATION Atrial fibrillation [...] erpretation Confirmed by fellow MD Mike, [place] ([id number]) on 022 8:36:21 PM Confirmed by MD [...] PROTOCOL, Starting on Fri05/31/22 at 2013, Until [place] 06/02/22 at 1702, Per Pro tocol, START [...] CONTINUOUS, Starting on Fri05/31/22 at 2015, Until [place] 06/02/22 at 1702, Begin infusion at 950 [...] (Lidoderm) 5% patch 2 patch(Linked Group 1) 2219 (Patch Applied - Provider: Ravne Barbour RN - Comment: Left lower leg [...] morning IVP) 0811 (Given - Provider: Trinidad Saezn RN) 40 mg, Oral, DAILY, First dose [...] RN)0710 (New Bag - Provider: Raven Barbour RN)3134 (Stopped - Provider: Maranda Ribeiro RN) 0-5,000 [...] - Less than 0.1 international unit/mL: Ad scraper meat 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
Routine documented in this encounter Care Teams Terminal Press Operator Relationship Specialty Start Date End Date Bobby Das MD PCP - General 10/02/[address] [place] [address] [place] [phone] documented as of this encounter
--- OUTSIDE RECORDS SUMMARY | 2022-07-19 13:18 | XMS_ITS | Encounter Summary ---
:1940 Author Organization [facility] [place] [address] Care Team Providers Name Role Phone Bobby Das MD Primary Care Provider Encounter Details Date Type Department Care Team Description 05/24/2022 Telephone [place] [facility] [place]ourtney Jimenez, RN [facility] [place] [address] Social History Tobacco Use Types Packs/Day [...] [facility] DR GASTROENTEROLOGY DEPT [place], [place] [address] (Wo rk) 09/05/2022 Appointment Cardiology Trinity Reid MD [facility] ER CARDIOLOGY [place], [place] [address] (Wo rk) 09/05/2022 Office Visit Cardiology Trinity Reid MD [facility] ER CARDIOLOGY [place], [place] [address] (Wo rk) documented as of this encounter Visit Diagnoses Not on filedocumented in this encounter Care Teams Subscription Crew Leader Relationship Specialty Start Date End Date Bobby Das MD PCP - General 10/02/[address] [place] [address] [place] [phone] documented as of this encounter
--- OUTSIDE RECORDS SUMMARY | 2022-07-19 13:18 | XMS_ITS | Encounter Summary ---
:1940 Author Organization [facility] [place] [address] Care Team Providers Name Role Phone Bobby Das MD Primary Care Provider Encounter Details Date Type Department Care Team Description 05/28/2022 Telephone [place]ascular [place] [facility] [place] Dominique Bolivar, [place] [address] Social History Tobacco Use Types Packs/Day [...] RN - 05/28/2022 1:20 PM EDT This automatic typewriter inspector returned phone call due to 's concern [...] cardiac history and symptoms of lightheadedness, this automatic typewriter inspector recommended the patient be evaluated. Discussed going [...] [facility] DR GASTROENTEROLOGY DEPT [place], [place] [address] (Wo rk) 09/05/2022 Appointment Cardiology Trinity Reid MD [facility] CARDIOLOGY [place], [place] [address] (Wo rk) 09/05/2022 Office Visit Cardiology Trinity Reid MD [facility] CARDIOLOGY [place], [place] [address] (Wo rk) documented as of this encounter Visit Diagnoses Not on filedocumented in this encounter Care Teams Health Benefits Specialist Relationship Specialty Start Date End Date Bobby Das MD PCP - General 10/02/[address] [place] [address] [place] [phone] documented as of this encounter
--- OUTSIDE RECORDS SUMMARY | 2022-07-19 13:18 | XMS_ITS | Encounter Summary ---
:1940 [address] [facility] Address [facility] [place] [address] Care Team Providers Name Role Phone Bobby Das MD Primary Care Provider Encounter Details Date Type Department Care Team Description 05/31/2022 Office Visit Vascular Surgery at [facility]; [facility] HARNESS RIGGER Atrial fibrillation, unspecified type; [facility] SOB (shortness of breath) Drive DR [place] VASCULAR SURGERY [address] [place] [id number] [phone] Social History Tobacco Use Types Packs/Day Years [...] onset Afib who presents in transfer from [facility] with acute limb ischemia of the [...] emergently went to the OR for L WIRING TECHNICIAN transverse arteriotomy and primary repair, thromboembolectomy of L SFA/PFA/WIRING TECHNICIAN, reperfusion venous drainage for 250 cc, [...] ND, no palpable pulsatile masses Extremity - [place], warm, no ulceration, brisk capillary refill, left [...] 08/08/2022 Office Visit Gastroenterology Negra Collins MD [facility] ER GASTROENTEROLOGY DEPT [place] [phone] (Wo rk) 09/05/2022 Appointment Cardiology Trinity Reid MD [facility] ER CARDIOLOGY [place], [place] [address] (Wo rk) 09/05/2022 Office Visit Cardiology Trinity Reid MD [facility] CARDIOLOGY [place], [place] [address] (Wo rk) documented as of this encounter Visit Diagnoses Diagnosis Dizzy Dizziness and giddiness Atrial fibrillation, unspecified type SOB (shortness of breath) Shortness of breath documented in this encounter Care Teams Office Machines Wirer Relationship Specialty Start Date End Date Bobby Das MD PCP - General 10/02/[address] [place] [address] [place] [address] documented as of this encounter
--- OUTSIDE RECORDS SUMMARY | 2022-07-19 13:19 | XMS_ITS | Encounter Summary ---
:1940 [place] [address] Care Team Providers Name Role Phone Bobby Das MD Primary Care Provider Reason for Visit Auth/Cert Specialty Diagnoses / Procedures Referred By Contact Refer red To Contact Diagnoses Limb ischemia LLE thrombus Fito Summers MD [facility] [address] Referral ID Status Reason Start Date Expiration Date Visits Requ ested Visits Authorized [id number] 1 1 Encounter Details Date Type Department Care Team Description 05/15/2022 Anesthesia Event Main Operating Room Cari Briggs MD [facility] [place] [address] [facility] Duong Aguillon CRNA [facility] [place] [address] [place] [address] Anesthesia Record Procedure Summary Procedure Name [...] Amb ros, Andrea L, DION fossa), left; prrb-agw-nscipb catheter system; 18 gauge; OSH; site care per policy/procedure, site symptomatic, removed per policy/procedure, catheter/device intact; 05/16/22; 1117 PIV 05/15/22; 1204; median 05/15/22 1204 by 05/16/22 0738 by cubital vein (antecubital Marcia Dimas RN Gon zalez, Adriana, fossa), right; RN vwai-kav-ixfjsa catheter system; 18 gauge; OSH; 05/16/22; 0738 [...] Procedure Summary Date: 05/15/22 Room / Location: [facility] OR [address] [place] [address] MAIN OR Anesthesia Start: 1320 Anesthesia Stop: 1633 Procedure: EMBOLECTOMY OR THROMBECTOMY, FEMOROPOPLITEAL, AORTOILIAC ARTERY BY LEG INCISION [facility] (Left ) Diagnosis: (Acute Limb Ischemia) Surgeons: Fito Summers MD Responsible Provider: Cari Ventura MD Anesthesia Type: general ASA Status: 3 - Emergent All Anesthesia Providers: Anesthesiologist: Cari Ventura MD COUNTY COURT JUDGE: Torres Aguilar CRNA Vitals Value Taken Time BP 108/69 05/15/22 1715 Temp 36.3 ??C (97.3 ??F) 05/15/22 1633 Pulse 110 05/15/22 1719 Resp 16 05/15/22 1719 SpO2 89 % 05/15/22 1719 Pain Level Vitals shown include unvalidated device data. Patient Location: PACU/[facility] Level of Consciousness: Awake and [...] IR Biopsy Spine 07/20/2019 Bobby Marshall MD [facility] INTERVENTIONL RAD ??? IR VERTEBROPLASTY LUMBAR MULTIPLE LEVELS 07/20/2019 IR Vertebroplasty Lumbar Multiple Levels 07/20/2019 Bobby Marshall MD [facility] INTERVENTIONL RAD ??? 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 Plan discussed with COUNTY COURT JUDGE. Anesthesia Screening documented in this encounter Plan of Treatment Upcoming Encounters Date Type Specialty Care Team Description 08/08/2022 Office Visit Gastroenterology Negra Collins MD [facility] GASTROENTEROLOGY DEPT [place], [place] [address] (Wo rk) 09/05/2022 Appointment Cardiology Trinity Reid MD [facility] CARDIOLOGY [place], [place] [address] (Wo rk) 09/05/2022 Office Visit Cardiology Trinity Reid MD [facility] CARDIOLOGY [place], [place] [address] (Wo rk) documented as of [...] Routine documented in this encounter Care Teams Recruitment Intern Relationship Specialty Start Date End Date Bobby Das MD PCP - General 10/02/[address] [place] [address] [place] [phone] documented as of this encounter
--- OUTSIDE RECORDS SUMMARY | 2022-07-19 13:19 | XMS_ITS | Encounter Summary ---
:1940 [place] [address] Care Team Providers Name Role Phone Bobby Das MD Primary Care Provider Reason for Visit Reason Comments Left Leg Pain Auth/Cert Specialty Diagnoses / Procedures Referred By Contact Refer red To Contact Diagnoses Limb ischemia LLE thrombus Fito Summers MD [facility] [place] [address] Referral ID Status Reason Start Date Expiration Date Visits Requ ested Visits Authorized [id number] 1 1 Encounter Details Date Type Department Care Team Description 05/20/2022 Surgery Enlisted Advisor Abundio Mcguire , CARDIAC CATHETERIZATION [facility] [place] [phone] CARDIOLOGY [phone] [place], [place] [address] (Wo rk) Social History Tobacco [...] EDT documented in this encounter Discharge Summaries Nasrni Parra PA - 05/21/2022 2:34 PM EDT [...] onset Afib who presents in transfer from [facility] with acute limb ischemia of the [...] emergently went to the OR for L EMERGENCY MEDCL EMT transverse arteriotomy and primary repair, thromboembolectomy of L SFA/PFA/EMERGENCY MEDCL EMT, reperfusion venous drainage for 250 cc, and [...] Discharge Condition: Good Discharge to: Home with [address] [address] Future Appointments and Orders Future Appointments and Orders Future Appointments Provider Department Dept Phone 05/23/2022 10:30 AM Loretta Cohen MD Dermatology at [facility] Arrive at: Envelope Stuffer [address] [place] [address] 06/07/2022 1:30 PM Gail Rae APRN Vascular Surgery at [facility] Arrive at: Envelope Stuffer [address] [phone] 06/13/2022 7:30 AM Edson Lagos [place] Vascular Lab at [facility] Arrive at: Envelope Stuffer Area 06/13/2022 8:00 AM Fito Summers MD Vascular Surgery at [facility] Arrive at: Envelope Stuffer Area 3V [phone] 06/13/2022 10:00 AM Alan Redi MD Cardiology at [facility] Arrive at: Envelope Stuffer Area [phone] Future Orders Complete By Expires Ziopatch 48 Hrs-15 Days [[id number] CPT(R)] 05/21/2022 11/20/2022 Process Instructions: Scheduling Instructions: Comments: Questions: Does the patient have a pacemaker? If yes provide HI/LO settings: Apply for 7 or 14 days?: 7 Where will study be performed?: [facility] Clinics JOSSELYN, legs, multiple levels [VAS8 Custom] 06/21/2022 (Approximate) 12/21/2022 Process Instructions: There is no in-house vascular clinical laboratory service teacher available on weeknights (5pm-8am), weekends, or holidays. IF THIS IS A REQUEST FOR AN EMERGENT STUDY DURING THOSE HOURS, please have the senior provider responsible for the patient page the Vascular Surgery Fellow/Senior Resident correctional lieutenant to discuss options. Scheduling Instructions: Questions: Indication for study/signs & symptoms: ALI s/p L fem cutdown with thromboembolectomy Question to be answered: Perfusion to feet? Please check toe pressure Preferred location?: [facility] Clinics Referral to Cardiology [REF12 [...] Koko Zamora for admission to Home Health. [address] [place] [phone] (home) Date of : 1940 Inpatient DOCUMENTATION FOR VNA SERVICES (INCLUDING THOSE PATIENTS WITH MEDICARE COVERAGE REQUIRING HOME VNA SERVICES AND/OR HOSPICE SERVICES) PATIENT'S LOCATION: Koko Zamora [address] [place] [phone] (home) Cell: No relevant phone numbers on file. Vortex Operator's Name: Koko In discussion with the attending physician, it is certified that this patient is under their care and that they, or a Nurse Practitioner,Clinical Nurse specialist or Physician Drop Shipment Clerk who is working directly with them, had [...] for managing ADL's. HOME HEALTH CARE AGENCY: [facility]. [address] [place] [address] Start of care: Within 24 to 48 [...] obtained from this patient'sPCP: Bobby Das MD [address] [place] [address] [place] [address] All VNA agencies which cover the [...] For any problems or questions please call [phone] For issues on weeknights after 5pm and weekends please call [phone] and ask for the Vascular Fellow correctional lieutenant. JOSEE Santiago Vascular Surgery 05/21/2022 documented in [...] For any problems or questions please call [phone] For issues on weeknights after 5pm and weekends please call [phone] and ask for the Vascular Fellow correctional lieutenant. documented in this encounter Medications at Time [...] 04/12/20 21 (FLONASE) 50 mcg/actuation Nare route [place], Suspension daily as needed. fluorouraciL (EFUDEX) 5 [...] onset Afib who presents in transfer from [facility] with acute limb ischemia of the [...] status, full code. JOSEE Santiago 05/21/2022 Pager: [phone] Brannon Isaacs, PT - 05/21/2022 10:35 AM [...] plan as stated. Time IN / OUT: 5373-5113 Total Minutes, Physical Therapy: 25 Billing Code: 2 BOSTON Isaacs DPT Pager: [phone] Physical Therapy Inpatient Rehabilitation Department [place] Jean [...] 04/17/2021 in Pain and Spine Center at [facility] Weight 79.8 kg (175 lb [...] and plan of care per Dr. Mcnamara (specialist field engineer). Please refer to her note above [...] limb ischemia (thromboembolic) and he is a senior care smoker (1/2 ppd, recommend nicotine patch). His [...] to Hosp-Admission (Current) from 05/15/2022 in [facility] Office Visit from 04/17/2021 in Pain and Spine Center at [facility] Weight 79.8 kg (175 lb [...] findings andplan of care per Dr. Mcnamara (specialist field engineer). Please refer to her note above [...] a mitral repair in 2000 (not at [facility]) with no CAD at that [...] AF and the first documented HR at [facility] was 125 bpm (presented to [...] onset Afib who presents in transfer from [facility] with acute limb ischemia of the [...] management following Dottie Hill APRN 05/20/2022 Pager: [phone] Laney Atkins RN - 05/20/2022 1:14 AM [...] 05/20/2022 1:09 AM EDT Pt. Transferred to [facility]. RN accompanied patient to floor and handed off to [facility] RN Dottie Hill APRN - 05/19/2022 10:02 AM EDT Vascular Surgery Progress Note Koko Zamora is a 81 y.o. male with w new onset Afib who presents in transfer from [facility] with acute limb ischemia of the LLE. ?? The patient had sudden pain starting at 630 05/15/22, he presented [facility] where he was placed on heparin. [...] management following Dottie Hill APRN 05/19/2022 Pager: [phone] Emily Sauceda RN - 05/19/2022 6:28 AM EDT OUTCOME EVALUATION NOTE: OUTCOME SUMMARY: Patient AOx4, VSS on RA. Afib on tele. HR controlled w/ PRN metop, given x2. Denies CP, SOB, n/v. See flowsheets for NVC. Dressings to LLE CDI, prevena W[place] to groin intact. Voiding to urinal. LBM ELECTRONIC NEWS GATHERING CAMERA PERSON, patient stating he will maybe try the [...] adequately without difficulty to bedside urinal. LBM ELECTRONIC NEWS GATHERING CAMERA PERSON. Up to chair this AM with nursing staff. Worked with PT, tolerated well. Diet changed to regular at 1800.Plan is for cardiac cath on Friday. PLAN MOVING FORWARD: Bleeding precautions Pain management neurovascular checks PT/OT animal laboratory technician INDIVIDUALIZED FALL PREVENTION INTERVENTIONS: Patient-specific [...] onset Afib who presents in transfer from [facility] with acute limb ischemia of the [...] mL Intravenous BID ??? PHENobarbitaL 0.12 mg/kg/dose ([place]) Oral BID ??? thiamine 100 mg Oral [...] management following Dottie Hill APRN 05/18/2022 Pager: [phone] Brannon Isaacs, PT - 05/18/2022 10:00 AM [...] IR Biopsy Spine 07/20/2019 Bobby Marshall MD [facility] INTERVENTIONL RAD ??? IR VERTEBROPLASTY LUMBAR MULTIPLE LEVELS 07/20/2019 IR Vertebroplasty Lumbar Multiple Levels 07/20/2019 Bobby Marshall MD [facility] INTERVENTIONL RAD ??? IR VERTEBROPLASTY THORACIC SINGLE LEVEL 10/25/2020 IR Vertebroplasty Thoracic Single Level 10/25/2020 Matt Chisholm MD [facility] INTERVENTIONL RAD ??? PRO EMBLC/THRMBC FEMORAL POPLITEAL AORTO-ILIAC ARTERY Left 05/15/2022 EMBOLECTOMY OR THROMBECTOMY, FEMOROPOPLITEAL, AORTOILIAC ARTERY BY LEG INCISION (WRVU 19.48) performed by Fito Summers MD at [facility] MAIN OR Social History: Pt lives [...] in this evaluation. Time IN / OUT: 3927-4623 Total Minutes, Physical Therapy: 30 Billing Code: Basilio Isaacs, PT Pager: [phone] Physical Therapy Inpatient Rehabilitation Department Emily Sauceda RN - 05/18/2022 4:34 AM EDT OUTCOME EVALUATION NOTE: OUTCOME SUMMARY: Patient AOx4, VSS on 2LNC. Afib on tele. HR above 120, MD aware, PRN IV metop given x1, HR returned to 90's-low 100's. Denies CP, SOB, n/v. See flowsheets for NVC. Dressings to LLE CDI, prevena WV to groin intact. Voiding to urinal. LBM ELECTRONIC NEWS GATHERING CAMERA PERSON. Heparin gtt therapeutic. Pain controlled. Patient sleeping [...] adequately without difficulty to bedside urinal. LBM ELECTRONIC NEWS GATHERING CAMERA PERSON. Patient not OOB this shift. Currently NPO [...] the Emergency Department as a transfer from [facility] with left lower extremity limb ischemia. He went to [facility] and was startedon heparin and transferred to [facility] for evaluation by vascular surgery with [...] Social Hx:Pt lives with his Ursula in [place], [place] in a 2 level home in [...] WBAT LLE LISBET HERMAN PT Pager # [phone] In-Pt Rehab Medicine Dottie Hill APRN - 05/17/2022 7:42 AM EDT Vascular Surgery Progress Note Koko Zamora is a 81 y.o. male with w new onset Afib who presents in transfer from [facility] with acute limb ischemia of the [...] mL Intravenous BID ??? PHENobarbitaL 0.24 mg/kg/dose ([place]) Oral BID Followed by ??? [START ON 05/18/2022] PHENobarbitaL 0.12 mg/kg/dose ([place]) Oral BID ??? thiamine 100 mg Oral [...] management following Dottie Hill APRN 05/17/2022 Pager: [phone] Sary Dos Santos, RN - 05/17/2022 12:16 [...] onset Afib who presents in transfer from [facility] with acute limb ischemia of the [...] mL Intravenous BID ??? PHENobarbitaL 0.48 mg/kg/dose ([place]) Oral BID Followed by ??? [START ON 05/17/2022] PHENobarbitaL 0.24 mg/kg/dose ([place]) Oral BID Followed by ??? [START ON 05/18/2022] PHENobarbitaL 0.12 mg/kg/dose ([place]) Oral BID ??? thiamine 100 mg Oral [...] management following Edward Rodríguez MD 05/16/2022 Pager: [phone] Sary Dos Santos RN - 05/16/2022 12:52 [...] Knowledge Exchangeat Bedside, Bed Alarm Set Barbie sAhraf MD - 05/15/2022 7:15 PM EDT Surgery [...] met 2129 Hand off to DION Ramirez [place] documented in this encounter H&P Notes Kerry [...] onset Afib who presents in transfer from [facility] with acute limb ischemia of the [...] IR Biopsy Spine 07/20/2019 Bobby Marshall MD [facility] INTERVENTIONL RAD ??? IR VERTEBROPLASTY LUMBAR MULTIPLE LEVELS 07/20/2019 IR Vertebroplasty Lumbar Multiple Levels 07/20/2019 Bobby Marshall MD [facility] INTERVENTIONL RAD ??? IR VERTEBROPLASTY THORACIC SINGLE LEVEL 10/25/2020 IR Vertebroplasty Thoracic Single Level 10/25/2020 Matt Chisholm MD [facility] INTERVENTIONL RAD Social Hx: Social History [...] Refill ??? fluticasone propionate (FLONASE) 50 mcg/actuation [place], Suspension as needed. ??? fluorouraciL (EFUDEX) 5 [...] and consented. Tim Chicas MD 05/15/2022 Pager: [phone] documented in this encounter ED Notes Lc Harris PA - 05/15/2022 1:20 PM EDT ED Provider Note HPI: Koko Zamora is a 81 y.o. male with history of atrial fibrillation not on anticoagulation, and GI bleeding who presents to the Emergency Department as a transfer from [facility] with left lower extremity limb ischemia. Patient says that the symptoms started roughly 630 this morning when he developed severe pain in his left lower extremity. He went to [facility] and was started on heparin and transferred to [facility] for evaluation by vascular surgery. Review [...] lower extremity earlier today and went to [facility] where it was determined that he had ischemia of the left lower extremity. Vascular surgery [facility] was contacted and he was transferred here [...] orders before pt. Arrival. Pt. Arrived at [facility] by EMS at 1150, vascular [...] in an outpatient cardiac rehabilitation program at [facility] was discussed. Patient agrees to a referral to this program. Timing will depend on his recovery from Vascular surgery. He is going home w/VNA PT. I gave him the brochure for the program at [facility] for future reference. Care Management Discharge [...] information for follow-up Home Health & Hospice, [place] [address] [place] [address] Transportation: family or friend will provide Functional [...] with plan. IP RS has communicated with [place] - for initial IMM. Shawn López RN (Jonas) RN/CM - Cellphone: [phone] Pager: [phone] Covering Service RN/CM Plan of Care - [...] catheterization, transferred in hospital bed accompanied by Enlisted Advisor RN, remains on telemetry monitoring. Heparin gtt [...] discuss discharge planning needs. ?? provide the [facility], Office of Care Management letter from the Manager Power pertaining to rehab referrals. ?? provide a letter describing our affiliations within the [facility] and educate about their right to choose where referrals are sent. ?? provide a list of Home Health Agencies / Durable Medical Equipment vendors which serve their preferred geographic area. ?? provided patient with [facility] Star Quality Rating handout. They have requested referrals to: [facility] [employer]. [address] [place] [phone] Note routed to a Lieutenant Firefighter who will communicate referrals to facilities and provide any required information. Transportation: family or friend will provide Barriers to discharge: None Plan going forward: Patient is going for a cardiac cath today and plan will come from there. Patientwas recently seen by PT and they recommend VNA at time of discharge. Tripp was routed and pendedat this time. Care Management will continue to follow and assist with discharge planning and coordination of care as indicated. Anticipated Date of Discharge: 05/21/2022 Ntaaly RICHMOND RN Phone: [phone] Pager: [phone] Plan of Care - Laney Atkins RN [...] were not included. [facility] [place] [address] INPATIENT CARDIOLOGY CONSULT NOTE Date of Consultation: 05/17/2022 Admit Date: 05/15/2022 Hospital Day 2 days Reason for Consult: New afib Active Problems: Active Hospital Problems Diagnosis Limb ischemia Resolved Hospital Problems No resolved problems to display. HPI: Koko Zamora is a 81 y.o. male with a PMHx significant for MVP (s/p MV repair 2000), tobacco use, HLD, who presented to [facility] from OSH on 05/15 with acute limb ischemia of LLE and was found to be in atrial fibrillation. Patient had sudden onset LLE pain on 05/15 and presented to [facility], where he was started on heparin and transferred to [facility]. Upon arrival to [facility], patient was in atrial fib [...] IR Biopsy Spine 07/20/2019 Bobby Marshall MD [facility] INTERVENTIONL RAD IR VERTEBROPLASTY LUMBAR MULTIPLE LEVELS 07/20/2019 IR Vertebroplasty Lumbar Multiple Levels 07/20/2019 Bobby Marshall MD [facility] INTERVENTIONL RAD IR VERTEBROPLASTY THORACIC SINGLE LEVEL 10/25/2020 IR Vertebroplasty Thoracic Single Level 10/25/2020 Matt Chisholm MD [facility] INTERVENTIONL RAD PRO EMBLC/THRMBC FEMORAL POPLITEAL AORTO-ILIAC ARTERY Left 05/15/2022 EMBOLECTOMY OR THROMBECTOMY, FEMOROPOPLITEAL, AORTOILIAC ARTERY BY LEG INCISION (WRVU 19.48) performed by Fito Summers MD at [facility] MAIN OR Allergies Allergen Reactions Aspirin Other (See Comments) GI bleed Out-Patient Medications: Medications Prior to Admission Medication Sig Dispense Refill Last Dose fluorouraciL (EFUDEX) 5 % Cream daily. CRESTOR 40 mg Tablet Take 40 mg by mouth daily. fluticasone propionate (FLONASE) 50 mcg/actuation [place], Suspension as needed. ascorbic acid, vitamin C, [...] 5 mL Intravenous BID PHENobarbitaL 0.24 mg/kg/dose ([place]) Oral BID Followed by [START ON 05/18/2022] PHENobarbitaL 0.12 mg/kg/dose ([place]) Oral BID thiamine 100 mg Oral Daily folic acid 1,000 mcg Oral Daily multivitamin with minerals 1 tablet Oral Daily heparin (porcine) infusion 1,200 Units/hr (05/17/22 3960) Family History: No family history on file. [...] ED to Hosp-Admission (Current) from 05/15/[address] [place] [address] Office Visit from 04/17/2021 in Pain and Spine Center at [facility] Weight 79.8 kg (175 lb [...] continue to follow Anne-Marie Larson MD Pager [phone] Clinic: [phone] 05/17/22 6:22 PM Initial Assessments - Ifrah [...] 180 days) Any patient receiving care at [facility] must abide by [place] law. The hierarchy [...] (i) The agent with financial power of marketing programs manager or a conservator appointed in accordance [...] raised toilet seat Home Address confirmed as: [address] [place] [phone] Social & Family Supports: All names listed below confirmed with patient as Incorrect. Will notify toni to correct. Wifes address is same as and phone is [phone]. Extended Emergency Contact Information Primary Emergency Contact: Ursula Zamora Address: [address] [place] [address] [address] [place] [address] [facility] Relation: Spouse Current Care Provided [...] NUYS Prescription Coverage: Yes Preferred Pharmacy: [id number] - [place], [place] - [address] [facility] [address] [place] [address] [facility] - [place], [place] - [address] [facility] [address] [facility] [address] [place] Status: Patient is a : unable to assess Primary Care Provider: Bobby Das MD [phone] Patient/Caregiver Goals of Treatment: to walk again Potential Needs for Transition of Care: none noted per 05/16 IDR Transportation: family will provide Transportation Anticipated: family or friend will provide Concerns to be Addressed: no discharge needs identified Assessment: Patient is admitted to vascular surg service for left lower extremity limb ischemia Plan: Per PT OT recommendations . Has used Gu[employer] in the past. A member of the Care Management team will continue to monitor progress, follow for continuity of care and assist with transition of care planning. Ifrah Bell RN BSN [employer] Thermal Technician of Care Management Pager [phone] Brief Op Note - Erin Garza MD - 05/15/2022 5:04 PM EDT Brief Operative Note Patient Name: Koko Zamora : [id number] MR#: [id number] Case Date: 05/15/2022 Surgeon: Surgeon(s) and Role: [...] Garza MD - 05/15/2022 2:08 PM EDT [facility] Operative Note Patient Name: Koko Zamora : [id number] MR#: [id number] Case Date: 05/15/2022 Surgeon: Surgeon(s) and Role: [...] and the skin was closed reapproximated with winyd. The groin incision was dressedwith a prevena [...] [facility] DR GASTROENTEROLOGY DEPT [place], [place] [address] (Wo rk) 09/05/2022 Appointment Cardiology Trinity Reid MD [facility] CARDIOLOGY [place], [place] [address] (Wo rk) 09/05/2022 Office Visit Cardiology Trinity Reid MD [facility] CARDIOLOGY [place], [place] [address] (Wo rk) Scheduled Referrals Name [...] Component Value Ref Test Analysis Performed At [facility] Range Method Time Signature VB Text Department: Vascular Surgery Lab VASCUBASE Report Patient: [id number] (KOKO ZAMORA) CPT: 89050 Referring Physician: FITO SUMMERS ?? Phone: Indications: s/p L EMERGENCY MEDCL EMT endart. Diabetes mellitus: no Findings: Right ?Pressure [...] P athologist Signature Heparin UFH 0.42 IU/mL [facility] LABORATORY Comment: Heparin (anti-Xa) levels should be [...] Organization Address City/State/[place] [address] Differential, Automated (05/21/2022 6:15 AM EDT) P athologist Signature Neutrophils % 58.8 % [facility] LABORATORY Neutr Abs (ANC) 3.97 1.70 - [facility] 6.10 [facility] x10(3)[facility] LABORATORY Lymphocytes % 25.2 % [facility] LABORATORY Lymphocytes Abs 1.7 0.9 - 3.2 [facility] x10(3)[facility] LABORATORY Monocytes % 12.9 % [facility] LABORATORY Monocyte Abs 0.9 0.3 - 0.9 [facility] x10(3)[facility] LABORATORY Eosinophils % 2.1 % [facility] LABORATORY Eosinophils Abs 0.1 0.0 - 0.4 [facility] x10(3)[facility] LABORATORY Basophils % 0.4 % [facility] LABORATORY Basophils Abs 0.0 0.0 - 0.1 [facility] x10(3)[facility] LABORATORY Immature Gran % 0.60 % [...] - 0.04 x10(3)/[facility] Y [facility]3] LABORATORY Specimen Anatomical Collection Method Collection Time Receive d Time (Source) Location / / Volume Laterality Blood 05/21/2022 6:15 AM 2 6:38 EDT AM EDT Resulting Agency Comment Spec In Lab Edward Rodríguez MD HEMATOLOGY ORDERABLES Performing Organization Address City/State/[place] [address] (ABNORMAL) Hemogram (05/21/2022 6:15 AM EDT) [facility] Method Time Signature WBC 6.8 4.0 - 9.5 [facility] x10(3)/[facility] LABORATORY RBC 3.59 (L) 4.58 - [facility] 5.54 [facility] x10(6)/[facility] LABORATORY Hemoglobin 11.8 (L) 13.7 - [facility] 16.5 g/dL [facility] LABORATORY Hematocrit 34.5 (L) 40.5 - [facility] 48.5 % [facility] LABORATORY MCV 96.1 (H) 82.9 - [facility] 93.1 [facility] LABORATORY MCH 32.9 (H) 27.5 - [facility] 32.1 pg [facility] LABORATORY MCHC 34.2 32.0 - [facility] 35.7 g/dL [facility] LABORATORY Platelets 198 145 - 357 [facility] x10(3)/[facility] LABORATORY RDWSD 44.9 36.0 - [facility] 45.0 [facility] LABORATORY RDWCV 12.6 11.4 - [facility] 13.8 % [facility] LABORATORY MPV 10.0 7.6 - 12.9 [facility] LABORATORY nRBC % Auto 0.3 % [facility] LABORATORY nRBC Abs Auto 0.020 (H) 0.000 - [facility] 0.000 [facility] x10(3)/[facility] LABORATORY Specimen Anatomical Collection Method Collection Time Receive d Time (Source) Location / / Volume Laterality Blood 05/21/2022 6:15 AM 2 6:38 EDT AM EDT Resulting Agency Comment Spec In Lab Edward Rodríguez MD HEMATOLOGY ORDERABLES Performing Organization Address City/State/ZIP Code Phon e Number [place] [phone] H[address]ITAL LAB[address]ORY [address] EKG 12 Lead (05/20/2022 7:04 PM EDT) Component Value Ref Range Test Analysis Performed Pathologis t Method Time At Signature Ventricular rate 101 BPM MUSE SYSTEM QRS Duration 116 ms MUSE SYSTEM Q-T Interval 378 ms MUSE SYSTEM QTC Calculated 490 ms MUSE SYSTEM (Bezet) Calculated R Clayhole -53 degrees MUSE SYSTEM Calculated T Clayhole 101 degrees MUSE SYSTEM INTERPRETATION Atrial fibrillation [...] Laterality Volume Narrative 05/20/2022 7:09 PM EDT ?[facility] ? Cardiac Cathete rization/Intervention Report ? Patient Name: Koko Zamora. ? Procedure Date: 05/20/2022 ? A #: [id number] ? Primary Physician: Abundio Servin ? Case #: [id number] ? File Name: [id number] ? Catheterization Order Number: [id number] ? [facility] ? Final Report [place], [place] ? Patient Name: ? Koko J. Klarissa uson ? ID#: ?[id number] ? : ?1940 ? Procedure Date: ? [...] ?3.5 guiding catheter and a 3.5 Fr [facility] [address] ??20 Mhz. ??Imaging ?was successful. ??Image [...] premounted 2. 75 x 30 mm Rudy [place] (AMPARO) was deployed ? with a maximum [...] ?modification of this regimen. C [facility] Interventional Cardiology for ?questions. ?The 1 year [...] note might be different from the original. [facility] Cardiac Catheterization/Intervention Re port Patient Name: Koko Zamora Procedure Date: 05/20/2022 A #: [id number] Primary Physician: Abundio Servin Case #: File Name: [id number] Catheterization Order Number: [id number] [facility] Final Report [place], [place] Patient Name: Koko Zamora ID#: [id number] : 1940 Procedure Date: May 20, 2022 [...] designated a s ASA Class IV. The [facility] clinical frailty scale is 3: [...] was Urgent. The indication for the laborer bituminous paving visit is cardiomyopathy. C hest pain symptom [...] 3.5 guiding catheter and a 3.[address] [facility] [address] 20 Mhz. Imaging was successful. Image [...] A premounted 2.75 x 30 mm Rudy [place] (AMPARO) was deployed with a maximum inflation [...] require modification of this regimen. Consult [facility] [place] Interventional [facility] for questions. The 1 year [...] Glucose 123 65 - 199 [facility] mg/dL [facility] Comment: Supplemental ranges: <140 mg/dL before meals <180 mg/dL all other times of the day Specimen Anatomical Collection Method Collection Time Receive d Time (Source) Location / / Volume Laterality Blood 05/20/2022 5:42 PM 2 5:42 EDT PM EDT Fito Summers MD POINT OF CARE TEST ORDERABLE S Performing Organization Address City/State/Z[place] [address] (ABNORMAL) BMP w/fasting Glucose (05/20/2022 10:50 AM EDT) P athologist Signature Glucose 152 (H) 65 - 99 [facility] Fasting mg/dL [facility] Comment: ?Fasting* Glucose Interpretive [...] of Diabetes Mellitus, Position Statement from the [place] [employer]. ??Diabete s Care, Volume 33, [...] The estimated GFR can vary from the allisno ured GFR by up to 30% in [...] Organization Address City/State/[place] [address] Heparin (unfractionated) Level (05/20/2022 5:02 AM EDT) P athologist Signature Heparin UFH 0.57 IU/mL [facility] LABORATORY Comment: Heparin (anti-Xa) levels should be [...] Organization Address City/State/[place] [address] (ABNORMAL) Differential, Automated (05/20/2022 5:02 AM EDT) Patholo gist Method Time Signature Neutrophils % 58.1 % [facility] Neutr Abs (ANC) 4.52 1.70 - [facility] 6.10 [facility] x10(3)/[facility] LABORATORY Lymphocytes % 24.1 % [facility] Lymphocytes Abs 1.9 0.9 - 3.2 [facility] x10(3)/[facility] LABORATORY Monocytes % 13.8 % [facility] Monocyte Abs 1.1 (H) 0.3 - 0.9 [facility] x10(3)/[facility] LABORATORY Eosinophils % 2.6 % [facility] Eosinophils Abs 0.2 0.0 - 0.4 [facility] x10(3)[facility] LABORATORY Basophils % 0.8 % [facility] Basophils Abs 0.1 0.0 - 0.1 [facility] x10(3)/[facility] LABORATORY Immature Gran % 0.60 % UN[facility]ERSITY [...] Abs 0.05 (H) 0.00 - 0.04 x10(3)/[facility] LABORATORY Specimen Anatomical Collection Method Collection Time Receive d Time (Source) Location / / Volume Laterality Blood 05/20/2022 5:02 AM 5:19 EDT AM EDT Resulting Agency Comment Spec In Lab Edward Rodríguez MD HEMATOLOGY ORDERABLES Performing Organization Address City/State/[place] [address] (ABNORMAL) Hemogram (05/20/2022 5:02 AM EDT) Analysis Performed At Patho logist Time Signature WBC 7.8 4.0 - 9.5 [facility] x10(3)/[facility] LABORATORY RBC 3.53 (L) 4.58 - [facility] 5.54 [facility] x10(6)/[facility] LABORATORY Hemoglobin 11.4 (L) 13.7 - [facility] 16.5 g/dL [facility] Hematocrit 34.3 (L) 40.5 - [facility] 48.5 % [facility] MCV 97.2 (H) 82.9 - [facility] 93.1 [facility] LABORATORY MCH 32.3 (H) 27.5 - [facility] 32.1 pg [facility] MCHC 33.2 32.0 - [facility] 35.7 g/dL [facility] Platelets 181 145 - 357 [facility] x10(3)/[facility] LABORATORY RDWSD 46.4 (H) 36.0 - [facility] 45.0 [facility] LABORATORY RDWCV 13.0 11.4 - [facility] 13.8 % [facility] LAB[facility]AT[facility] MPV 10.4 7.6 - 12.9 [facility] LABORATORY nRBC % Auto 0.0 % [facility] nRBC Abs Auto 0.000 0.000 - [facility] 0.000 [facility] x10(3)/[facility] LABORATORY Specimen Anatomical Collection Method Collection Time Receive d Time (Source) Location / / Volume Laterality Blood 05/20/2022 5:02 AM 2 5:19 EDT AM EDT Resulting Agency Comment Spec In Lab Edward Rodríguez MD HEMATOLOGY ORDERABLES Performing Organization Address City/State/Z[place] [address] Heparin (unfractionated) Level (05/19/2022 3:26 AM EDT) P athologist Signature Heparin UFH 0.59 IU/mL [facility] LABORATORY Comment: Heparin (anti-Xa) levels should be [...] Organization Address City/State/[place] [address] (ABNORMAL) Differential, Automated (05/19/2022 3:26 AM EDT) [facility] Method Time Signature Neutrophils % 62.1 % [facility] Neutr Abs (ANC) 4.59 1.70 - [facility] 6.10 [facility] x10(3)/[facility] LABORATORY Lymphocytes % 22.1 % [facility] Lymphocytes Abs 1.6 0.9 - 3.2 [facility] x10(3)/[facility] LABORATORY Monocytes % 13.5 % [facility] Monocyte Abs 1.0 (H) 0.3 - 0.9 [facility] x10(3)/[facility] LABORATORY Eosinophils % 1.3 % [facility] Eosinophils Abs 0.1 0.0 - 0.4 [facility] x10(3)/[facility] LABORATORY Basophils % 0.5 % [facility] Basophils Abs 0.0 0.0 - 0.1 [facility] x10(3)/[facility] LABORATORY Immature Gran % 0.50 % UN[facility]ERSITY [...] - 0.04 x10(3)/[facility]3] LABORATORY Specimen Anatomical Collection Method Collection Time Receive d Time (Source) Location / / Volume Laterality Blood 05/19/2022 3:26 AM 2 3:59 EDT AM EDT Resulting Agency Comment Spec In Lab Edward Rodríguez MD HEMATOLOGY ORDERABLES Performing Organization Address City/State/[place] [address] (ABNORMAL) Hemogram (05/19/2022 3:26 AM EDT) Analysis Performed At [facility] logist Time Signature WBC 7.4 4.0 - 9.5 [facility] x10(3)/[facility] LABORATORY RBC 3.74 (L) 4.58 - [facility] 5.54 [facility] x10(6)/[facility] LABORATORY Hemoglobin 12.1 (L) 13.7 - [facility] [place] 16.5 g/dL [facility] Hematocrit 36.4 (L) 40.5 - [facility] 48.5 % [facility] LABORATORY MCV 97.3 (H) 82.9 - [facility] X[facility] 93.1 [facility] LABORATORY MCH 32.4 (H) 27.5 - [facility] [place] 32.1 pg [facility] LABORATORY MCHC 33.2 32.0 - [facility] 35.7 g/dL [facility]ORAT[facility] Platelets 168 145 - 357 [facility] x10(3)/[facility] LABORATORY RDWSD 46.9 (H) 36.0 - [facility] 45.0 [facility] LABORATORY RDWCV 13.0 11.4 - [facility] 13.8 % [facility] LABORAT[facility] MPV 10.5 7.6 - 12.9 [facility] fL [facility] LABORATORY nRBC % Auto 0.0 % [facility] nRBC Abs Auto 0.000 0.000 - [facility] [place] 0.000 [facility] x10(3)/[facility] LABORATORY Specimen Anatomical Collection Method Collection Time Receive d Time (Source) Location / / Volume Laterality Blood 05/19/2022 3:26 AM 3:59 EDT AM EDT Resulting Agency Comment Spec In Lab Edward Rodríguez MD HEMATOLOGY ORDERABLES Performing Organization Address City/State/[place] [address] TSH (05/18/2022 8:00 PM EDT) P athologist Signature TSH 2.27 0.27 - 4.20 [facility] [place] mcIU/mL [facility] Comment: Reference Interval (mcIU/mL): Females: ??First Trimester: 0.23-3.88 ??Second Trimester: 0.22-3.90 ??Third Trimester: 0.44-4.66 Specimen Anatomical Collection Method Collection Time Receive d Time (Source) Location / / Volume Laterality Blood 05/18/2022 8:00 PM 2 8:06 EDT PM EDT Resulting Agency Comment Spec In Lab Fito Summers MD CHEMISTRY ORDERABLES Performing Organization Address City/State/[place] [address] (ABNORMAL) Differential, Automated (05/18/2022 3:34 AM EDT) [facility] Method Time Signature Neutrophils % 67.2 % [facility]OR[facility]ORY Neutr Abs (ANC) 5.89 1.70 - [facility] 6.10 [facility] x10(3)/[facility] LABORATORY Lymphocytes % 17.1 % [facility]ORATORY Lymphocytes Abs 1.5 0.9 - 3.2 [facility] x10(3)/[facility] LABORATORY Monocytes % 13.6 % [facility]ORATORY Monocyte Abs 1.2 (H) 0.3 - 0.9 [facility] x10(3)/[facility] LABORATORY Eosinophils % 1.0 % [facility] LABORATORY Eosinophils Abs 0.1 0.0 - 0.4 [facility] x10(3)/[facility] LABORATORY Basophils % 0.6 % [facility]ATORY Basophils Abs 0.0 0.0 - 0.1 [facility] x10(3)/[facility] LABORATORY Immature Gran % 0.50 % UNIVERSITY [...] Rain Gran Abs 0.04 0.00 - 0.04 x10(3)/[facility]3] LABORATORY Specimen Anatomical Collection Method Collection Time Receive d Time (Source) Location / / Volume Laterality Blood 05/18/2022 3:34 AM 2 3:48 EDT AM EDT Resulting Agency Comment Spec In Lab Edward Rodríguez MD HEMATOLOGY ORDERABLES Performing Organization Address City/State/[place] [address] (ABNORMAL) Hemogram (05/18/2022 3:34 AM EDT) Analysis Performed At Patho logist Time Signature WBC 8.8 4.0 - 9.5 [facility] x10(3)/[facility] LABORATORY RBC 3.45 (L) 4.58 - [facility] X[facility] 5.54 [facility] x10(6)/[facility] LABORATORY Hemoglobin 11.2 (L) 13.7 - [facility] 16.5 g/dL [facility] Hematocrit 33.0 (L) 40.5 - [facility] 48.5 % [facility] LABOR[facility] MCV 95.7 (H) 82.9 - [facility] 93.1 [facility] LABORATORY MCH 32.5 (H) 27.5 - [facility] 32.1 pg [facility] MCHC 33.9 32.0 - [facility] 35.7 g/dL [facility] Platelets 130 (L) 145 - 357 [facility] x10(3)/[facility] LABORATORY RDWSD 46.2 (H) 36.0 - [facility] 45.0 [facility] LABORATORY RDWCV 13.2 11.4 - [facility] 13.8 % [facility] LABORATORY MPV 10.8 7.6 - 12.9 [facility] LABORATORY nRBC % Auto 0.0 % [facility] nRBC Abs Auto 0.000 0.000 - [facility] 0.000 [facility] x10(3)/[facility] LABORATORY Specimen Anatomical Collection Method Collection Time Receive d Time (Source) Location / / Volume Laterality Blood 05/18/2022 3:34 AM 3:48 EDT AM EDT Resulting Agency Comment Spec In Lab Edward Rodríguez MD HEMATOLOGY ORDERABLES Performing Organization Address City/State/[place] [address] Heparin (unfractionated) Level (05/18/2022 3:34 AM EDT) P athologist Signature Heparin UFH 0.59 IU/mL [facility] LABORATORY Comment: Heparin (anti-Xa) levels should be [...] Summers MD HEMATOLOGY ORDERABLES Performing Organization Address City/[facility]/ZIP [place] [address] Magnesium (05/17/2022 3:33 AM EDT) athologist Signature Magnesium 0.76 0.69 - 1.07 [facility] mmol/L [facility] LABORATORY Specimen Anatomical Collection Method Collection Time Receive d Time (Source) Location / / Volume Laterality Blood Venous Draw / 05/17/2022 3:33 AM 05/17/20 4:05 Unknown EDT AM EDT Resulting Agency Comment Spec In Lab Dottie Hill APRN CHEMISTRY ORDERABLES Performing Organization Address City/State/ZIP [place] [address] (ABNORMAL) Basic Metabolic Panel (non-fasting) (05/17/2022 3:33 AM EDT) athologist Signature Glucose Lvl 158 65 - 199 [facility] mg/dL [facility]ORY Comment: Diabetes: >=200 mg/dL plus symp toms BUN 12 10 - 20 mg/dL [facility] LAB[facility] Creatinine 0.74 (L) 0.80 - 1.50 mg/dL [facility] LABOR[facility]ORY Sodium 137 135 - 145 mmol/L [facility] LABOR[facility]ORY Potassium 3.5 3.5 - 5.0 mmol/L [facility] [...] Calcium 8.4 (L) 8.5 - 10.5 mg/dL [facility] LABORATORY Estimated GFR 92 >=60 [...] Organization Address City/State/[place] [address] (ABNORMAL) Differential, Automated (05/17/2022 3:33 AM EDT) [facility] gist Method Time Signature Neutrophils % 65.5 % [facility] LABORATORY Neutr Abs (ANC) 6.84 (H) 1.70 - [facility] 6.10 [facility] x10(3)/[facility] LABORATORY Lymphocytes % 19.7 % [facility] LABORATORY Lymphocytes Abs 2.1 0.9 - 3.2 [facility] x10(3)/[facility] LABORATORY Monocytes % 13.1 % [facility] LABORATORY Monocyte Abs 1.4 (H) 0.3 - 0.9 [facility] x10(3)/[facility] LABORATORY Eosinophils % 0.6 % [facility] LABORATORY Eosinophils Abs 0.1 0.0 - 0.4 [facility] x10(3)/[facility] LABORATORY Basophils % 0.6 % [facility] LABORATORY Basophils Abs 0.1 0.0 - 0.1 [facility] x10(3)/[facility] LABORATORY Immature Gran % 0.50 % UNIVERSITY [...] Abs 0.05 (H) 0.00 - 0.04 x10(3)/[facility] LABORATORY Specimen Anatomical Collection Method Collection Time Receive d Time (Source) Location / / Volume Laterality Blood 05/17/2022 3:33 AM 3:53 EDT AM EDT Resulting Agency Comment Spec In Lab Edward Rodríguez MD HEMATOLOGY ORDERABLES Performing Organization Address City/State/[place] [address] (ABNORMAL) Hemogram (05/17/2022 3:33 AM EDT) Analysis Performed At Patho logist Time Signature WBC 10.4 (H) 4.0 - 9.5 [facility] x10(3)/[facility] LABORATORY RBC 3.72 (L) 4.58 - [facility] 5.54 [facility] x10(6)/[facility] LABORATORY Hemoglobin 12.0 (L) 13.7 - [facility] 16.5 g/dL [facility] LABOR[facility]ORY Hematocrit 36.4 (L) 40.5 - [facility] 48.5 % [facility] LABORATORY MCV 97.8 (H) 82.9 - [facility] 93.1 [facility] LABORATORY MCH 32.3 (H) 27.5 - [facility] 32.1 pg [facility] LABORATORY MCHC 33.0 32.0 - [facility] 35.7 g/dL [facility] LABORATORY Platelets 149 145 - 357 [facility] x10(3)/[facility] LABORATORY RDWSD 48.7 (H) 36.0 - [facility] 45.0 [facility] RDWCV 13.5 11.4 - [facility] 13.8 % [facility] LABORAT[facility] MPV 10.6 7.6 - 12.9 [facility] LABORATORY nRBC % Auto 0.0 % [facility]ORATORY nRBC Abs Auto 0.000 0.000 - [facility] 0.000 [facility] x10(3)/[facility] LABORATORY Specimen Anatomical Collection Method Collection Time Receive d Time (Source) Location / / Volume Laterality Blood 05/17/2022 3:33 AM 3:53 EDT AM EDT Resulting Agency Comment Spec In Lab Edward Rodríguez MD HEMATOLOGY ORDERABLES Performing Organization Address City/State/[place] [address] (ABNORMAL) Urinalysis Microscopic Exam [...] Organization Address City/State/ZIP Code Phon e Number [place] [id number] (ABNORMAL) Urinalysis with reflex Culture (05/16/2022 11:15 PM EDT) Patholo gist Method Time Signature Glucose UA Negative Negative [facility] mg/dL [facility] Protein UA Negative Negative [facility] mg/dL [facility] Bilirubin UA Negative Negative [facility] mg/dL [facility] LAB[facility]ORY Comment: Clinical correlation required [...] [facility] LABORATORY Leukocytes UA Negative Negative [facility] LABORATORY Appearance UA Clear Clear [facility] Spec Bruno UA 1.021 1.005 - 1.030 [facility] LABORATORY Color UA Yellow Yellow [facility] LABORATORY Culture Reflexed No [facility] LABORATORY Specimen Anatomical Collection Method Collection Time Receive d Time (Source) Location / / Volume Laterality Clean Catch 05/16/2022 11:15 05/16/2022 Urine PM EDT 11:30 PM EDT Resulting Agency Comment Spec In Lab Fito Summers MD URINE ORDERABLES Performing Organization Address City/State/[place] [address] Heparin (unfractionated) Level (05/16/2022 10:59 PM EDT) P athologist Signature Heparin UFH 0.65 IU/mL [facility] LABORATORY Comment: Specimen drawn more than one [...] Organization Address City/State/ZIP Code Phon e Number [place] [id number] Drive XR Chest One View [...] who have questions please contact the health doggy daycare activities director that requested your imaging first. ? Electronically signed by: Tiffanie George MD , [facility] ([phone]), at 05/16/2022 9:27 PM Narrative 05/16/2022 9:27 [...] ho have questions please contact the health doggy daycare activities director that requested your imaging first. Electronically signed by: Tiffanie George MD , [facility] ([phone]), at 05/16/2022 9:27 PM Fito Summers MD IMG DX ORDERABLES EKG 12 Lead (05/16/2022 8:57 PM EDT) Component Value Ref Range Test Analysis Performed Pathologis t Method Time At Signature Ventricular rate 117 BPM MUSE SYSTEM QRS Duration 112 ms MUSE SYSTEM Q-T Interval 346 ms MUSE SYSTEM QTC Calculated 482 ms MUSE SYSTEM (Bezet) Calculated R [place] -48 degrees MUSE SYSTEM Calculated T [place] 111 degrees MUSE SYSTEM INTERPRETATION Atrial fibrillation with rapid ventricular response MUSE SYSTEM Left anterior fascicular block Minimal voltage criteria for LVH, may be normal variant ( [place] product ) Nonspecific ST and T wave [...] P athologist Signature Heparin UFH 0.53 IU/mL [facility] LABORATORY Comment: Heparin (anti-Xa) levels should be [...] Organization Address City/State/[place] [address] ECHOCARDIOGRAM COMPLETE W CONTRAST (05/16/2022 12:49 PM EDT) P athologist Signature EF 28 HEARTLAB SYSTEM Anatomical Region Laterality Modality Cardiac Other Specimen (Source) Anatomical Collection Method Collection Time Re ceived Time Location / / Volume Laterality 05/16/2022 11:22 AM EDT Narrative 05/16/2022 1:54 PM EDT ?[facility] ? [facility] Center ?[address] ? [place] [address] ?Voice: ?Fax: ? Echocardiogram Report Name: ZAMORAKOKO ?Study Date: 05/16/2022 11:22 AM ? Patient Location: 3WST 0303 B : 1940 ? Height: 67.5 in ? Account: [id number] Age: 81 yrs ? Weight: 176 lb [...] and LV systolic dysfunction are new. Procedure Complete-[id number]. Image enhancement Optiso n was used for [...] note might [place] [address] Voice: Fax: Echocardiogram Report Name: KOKO ZAMORA Study Date: 05/2022 11:22 AM Patient Location: [address] [place] [address] : 1940 Height: 67.5 in Account: [id number] Age: 81 yrs Weight: 176 lb Gender: [...] and LV systolic dysfunction are new. Procedure Complete-[id number]. Image enhancement Optiso n was used for [...] (ABNORMAL) Differential, Automated (05/16/2022 3:01 AM EDT) [facility] Method Time Signature Neutrophils % 78.8 % [facility] LABORATORY Neutr Abs (ANC) 9.11 (H) 1.70 - [facility] 6.10 [facility] x10(3)/[facility] LABORATORY Lymphocytes % 9.4 % [facility] LABORATORY Lymphocytes Abs 1.1 0.9 - 3.2 [facility] x10(3)/[facility] LABORATORY Monocytes % 10.9 % [facility] LABORATORY Monocyte Abs 1.3 (H) 0.3 - 0.9 [facility] x10(3)/[facility] LABORATORY Eosinophils % 0.0 % [facility] [facility] Eosinophils Abs 0.0 0.0 - 0.4 [facility] x10(3)/[facility] LABORATORY Basophils % 0.3 % [facility] LABORATORY Basophils Abs 0.0 0.0 - 0.1 [facility] x10(3)/[facility] LABORATORY Immature Gran % 0.60 [...] Abs 0.07 (H) 0.00 - 0.04 x10(3)/[facility] LABORATORY Specimen Anatomical Collection Method Collection Time Receive d Time (Source) Location / / Volume Laterality Blood 05/16/2022 3:01 AM 3:36 EDT AM EDT Resulting Agency Comment Spec In Lab Erin Garza MD HEMATOLOGY ORDERABLES Performing Organization Address City/State/[place] [address] (ABNORMAL) Hemogram (05/16/2022 3:01 AM EDT) Analysis Performed At Patho logist Time Signature WBC 11.6 (H) 4.0 - 9.5 [facility] x10(3)/[facility] LABORATORY RBC 3.62 (L) 4.58 - [facility] 5.54 [facility] x10(6)/[facility] LABORATORY Hemoglobin 12.0 (L) 13.7 - [facility] 16.5 g/dL [facility] LABORATORY Hematocrit 35.3 (L) 40.5 - [facility] 48.5 % [facility] LABORATORY MCV 97.5 (H) 82.9 - [facility] 93.1 [facility] LABORATORY MCH 33.1 (H) 27.5 - [facility] 32.1 pg [facility] LAB[facility]ATORY MCHC 34.0 32.0 - [facility]/dL [facility] LABORATORY Platelets 151 145 - 357 [facility] x10(3)/[facility] LABORATORY RDWSD 47.6 (H) 36.0 - [facility] 45.0 [facility] LABORATORY RDWCV 13.3 11.4 - [facility] XIAO 13.8 % [facility] LABORATORY MPV 10.5 7.6 - 12.9 [facility] LABORATORY nRBC % Auto 0.0 % [facility] LABORATORY nRBC Abs Auto 0.000 0.000 - [facility] 0.000 [facility] x10(3)/[facility] LABORATORY Specimen Anatomical Collection Method Collection Time Receive d Time (Source) Location / / Volume Laterality Blood 05/16/2022 3:01 AM 2 3:36 EDT AM EDT Resulting Agency Comment Spec In Lab Erin Garza MD HEMATOLOGY ORDERABLES Performing Organization Address City/State/ZIP Code Phon e Number [address] Phosphorus (05/16/2022 3:01 AM EDT) athologist Signature Phosphorus 3.7 2.5 - 4.5 [facility] mg/dL [facility] LABORATORY Specimen Anatomical Collection Method Collection Time Receive d Time (Source) Location / / Volume Laterality Blood 05/16/2022 3:01 AM 2 3:36 EDT AM EDT Resulting Agency Comment Spec In Lab Fito Summers MD CHEMISTRY ORDERABLES Performing Organization Address City/[facility]/ZIP Code Phon e Number [address] Magnesium (05/16/2022 3:01 AM EDT) athologist Signature Magnesium 0.77 0.69 - 1.07 [facility] mmol/L [facility] LABORATORY Specimen Anatomical Collection Method Collection Time Receive d Time (Source) Location / / Volume Laterality Blood 05/16/2022 3:01 AM 2 3:36 EDT AM EDT Resulting Agency Comment Spec In Lab Fito Summers MD CHEMISTRY ORDERABLES Performing Organization Address City/[facility]/ZIP [place] [address] (ABNORMAL) Basic Metabolic Panel (non-fasting) (05/16/2022 3:01 AM EDT) P athologist Signature Glucose Lvl 222 (H) 65 - 199 [facility] mg/dL [facility] LABORATORY Comment: Diabetes: >=200 mg/dL plus symp toms BUN 12 10 - 20 mg/dL [facility] LABORATORY Creatinine 0.66 (L) 0.80 - 1.50 mg/dL [facility] LABORATORY Sodium 138 135 - 145 mmol/L [facility] LABORATORY Potassium 4.5 3.5 - 5.0 mmol/L [facility] [...] Calcium 8.2 (L) 8.5 - 10.5 mg/dL [facility] LABORATORY Estimated GFR 95 >=60 [...] Organization Address City/State/[place] [address] (ABNORMAL) BLOOD GAS 2 ARTERIAL (05/15/2022 3:33 PM EDT) Analysis Performed At Patho logist Time Signature pH Art 7.33 (L) 7.35 - [facility] 7.45 [facility] LABORATORY pCO2 Art 41 35 - 45 [facility] mmHg [facility] LABORATORY pO2 Art 131 (H) 85 - 104 [facility] LABORATORY HCO3 Art 21.1 20.0 - [facility] 26.0 [facility] mmol/L [facility] LABORATORY BE Art -4.8 (L) -3.0 - 3.0 [facility] mmol/L [facility] LABORATORY Hgb Blood Gas 13.4 (L) 13.7 - [facility] 16.5 g/dL [facility] LABORATORY O2HB Art 96.9 94.0 - [facility] 97.0 % [facility] LABORATORY COHB Art 1.4 % [facility] Blood 113 (H) 98 - 107 mmol/L [facility] LABORATORY Gluc Whole Bld 136 65 - 199 mg/dL [facility] LABORATORY Comment: Diabetes: >=200 mg/dL plus symp toms. Lactate WB 2.0 0.5 - 2.2 mmol/L [facility] LABORATORY Specimen Anatomical Collection Method Collection Time Receive d Time (Source) Location / / Volume Laterality Blood 05/15/2022 3:33 PM 2 3:[address] Jamel Torre MD CHEMISTRY ORDERABLES Performing Organization Address City/State/[place] [address] (ABNORMAL) BLOOD GAS 2 ARTERIAL (05/15/2022 2:06 PM EDT) Analysis Performed At Patho logist Time Signature pH Art 7.39 7.35 - [facility] 7.45 [facility] LABORATORY pCO2 Art 35 35 - 45 [facility] mmHg [facility] LABORATORY pO2 Art 135 (H) 85 - 104 [facility] LABORATORY HCO3 Art 20.8 20.0 - [facility] 26.0 [facility] mmol/L [facility] LABORATORY BE Art -4.2 (L) -3.0 - 3.0 [facility] mmol/L [facility] LABORATORY Hgb Blood Gas 14.5 13.7 - [facility] 16.5 g/dL [facility] LABORATORY O2HB Art 97.2 (H) 94.0 - [facility] 97.0 % [facility] LABORATORY COHB Art 1.2 % [facility] [...] Blood 109 (H) 98 - 107 mmol/L [facility] LABORATORY Gluc Whole Bld 152 65 - 199 mg/dL [facility] LABORATORY Comment: Diabetes: >=200 mg/dL plus symp toms. Lactate WB 1.5 0.5 - 2.2 mmol/L [facility] LABORATORY Specimen Anatomical Collection Method Collection Time Receive d Time (Source) Location / / Volume Laterality Blood 05/15/2022 2:06 PM 2:[address] Jamel Torre MD CHEMISTRY ORDERABLES Performing Organization Address City/[facility]/[place]IP [place] [address] (ABNORMAL) Prothrombin Time (05/15/2022 12:30 PM EDT) P athologist Signature PT 12.9 (H) 9.4 - 12.5 [facility] LABORATORY INR 1.1 [facility] Morales DO HEMATOLOGY ORDERABLES Performing Organization Address City/[facility]/ZIP [place] [address] (ABNORMAL) APTT (05/15/2022 12:30 [...] Daquan Andrew HEMATOLOGY ORDERABLES Performing Organization Address City/[facility]/ZIP Code Phon e Number [address] Gold Tube HOLD (05/15/2022 12:20 PM EDT) P athologist Signature Gold Hold Sample in [facility]. [facility] LABORATORY Specimen Anatomical Collection Method Collection Time Receive d Time (Source) Location / / Volume Laterality Blood No Charge / 05/15/2022 12:20 05/15/2022 Unknown PM EDT 12:20 PM EDT Lc TRIPP CHEMISTRY ORDERABLES Performing Organization Address City/[facility]/ZIP Code Phon e Number [address] Type and Screen Validity (05/15/2022 12:00 PM EDT) [facility] Method Time Signature T&S only valid [facility] H[facility] at [facility] LABORATORY Comment: This Type and Screen result is only valid at the [facility] Hospital Specimen Anatomical Collection Method Collection Time Receive d Time (Source) Location / / Volume Laterality Blood 05/15/2022 12:00 05/15/2022 PM EDT 12:17 PM EDT Resulting Agency Comment Spec In Lab Lc Dominick Kimberly TRIPP BLOOD BANK ORDERABLES Performing Organization Address City/[facility]/ZIP Code Phon e Number [address] ABORH Recheck Status (05/15/2022 12:00 PM EDT) [facility] gist Method Time Signature ABORH Recheck Order Placed [facility] LABORATORY ABORH Type Complete [facility] LABORATORY Specimen Anatomical Collection Method Collection Time Receive d Time (Source) Location / / Volume Laterality Blood 05/15/2022 12:00 05/15/2022 PM EDT 12:17 PM EDT Resulting Agency Comment Spec In Lab Lc Harris PA BLOOD BANK ORDERABLES Performing Organization Address City/[facility]/ZIP [place] [address] CK (05/15/2022 12:00 PM EDT) P athologist Signature CK, Total 87 0 - 200 [facility] unit/L [facility] LABORATORY Specimen Anatomical Collection Method Collection Time Receive d Time (Source) Location / / Volume Laterality Blood Venous Draw / 05/15/2022 12:00 05/15/2022 Unknown PM EDT 12:19 PM EDT Resulting Agency Comment Spec In Lab Fito Summers MD CHEMISTRY ORDERABLES Performing Organization Address City/State/ZIP [place] [address] Antibody screen (05/15/2022 12:00 PM EDT) [facility] Method Time Signature Ab Screen Negative [facility] LABORATORY Expires at 05/18/2022 [facility] 2359 on: [facility] LABORATORY Specimen Anatomical Collection Method Collection Time Receive d Time (Source) Location / / Volume Laterality Blood 05/15/2022 12:00 05/15/2022 PM EDT 12:17 PM EDT Resulting Agency Comment Spec In Lab Lc TRIPP BLOOD BANK ORDERABLES Performing Organization Address City/[facility]/ZIP [place] [address] ABO/Rh Typing (05/15/2022 12:00 PM EDT) P athologist Signature ABORh Type O Pos [facility] LABORATORY Specimen Anatomical Collection Method Collection Time Receive d Time (Source) Location / / Volume Laterality Blood 05/15/2022 12:00 05/15/2022 PM EDT 12:17 PM EDT Resulting Agency Comment Spec In Lab Lc TRIPP BLOOD BANK ORDERABLES Performing Organization Address City/[facility]/ZIP [place] [address] (ABNORMAL) Differential, Automated (05/15/2022 12:00 PM EDT) [facility] Method Time Signature Neutrophils % 79.4 % [facility] LABORATORY Neutr Abs (ANC) 7.49 (H) 1.70 - [facility] 6.10 [facility] x10(3)/[facility] LABORATORY Lymphocytes % 11.3 % [facility] LABORATORY Lymphocytes Abs 1.1 0.9 - 3.2 [facility] x10(3)/[facility] LABORATORY Monocytes % 7.8 % [facility] LABORATORY Monocyte Abs 0.7 0.3 - 0.9 [facility] x10(3)/[facility] LABORATORY Eosinophils % 0.6 % [facility] LABORATORY Eosinophils Abs 0.1 0.0 - 0.4 [facility] x10(3)/[facility] LABORATORY Basophils % 0.6 % [facility] LABORATORY Basophils Abs 0.1 0.0 - 0.1 [facility] x10(3)/[facility] LABORATORY Immature Gran % 0.30 % [facility] [...] - 0.04 x10(3)/[facility]3] LABORATORY Specimen Anatomical Collection Method Collection Time Receive d Time (Source) Location / / Volume Laterality Blood 05/15/2022 12:00 05/15/2022 PM EDT 12:19 PM EDT Resulting Agency Comment Spec In Lab Lc TRIPP HEMATOLOGY ORDERABLES Performing Organization Address City/State/[place] [address] (ABNORMAL) Hemogram (05/15/2022 12:00 PM EDT) Analysis Performed At Patho logist Time Signature WBC 9.4 4.0 - 9.5 [facility] x10(3)/[facility] LABORATORY RBC 4.48 (L) 4.58 - [facility] 5.54 [facility] x10(6)/[facility] LABORATORY Hemoglobin 14.5 13.7 - [facility] 16.5 g/dL [facility] LABORATORY Hematocrit 42.4 40.5 - [facility] 48.5 % [facility] LABORATORY MCV 94.6 (H) 82.9 - [facility] 93.1 [facility] LABORATORY MCH 32.4 (H) 27.5 - [facility] 32.1 pg [facility] LABORATORY MCHC 34.2 32.0 - [facility] 35.[facility] g/dL [facility] LABORATORY Platelets 209 145 - 357 [facility] x10(3)/[facility] LABORATORY RDWSD 45.9 (H) 36.0 - [facility] 45.0 [facility] LABORATORY RDWCV 13.1 11.4 - [facility] 13.8 % [facility] LABORATORY MPV 10.5 7.6 - 12.9 [facility] LABORATORY nRBC % Auto 0.0 % [facility] LABORATORY nRBC Abs Auto 0.000 0.000 - [facility] 0.000 [facility] x10(3)/[facility] LABORATORY Specimen Anatomical Collection Method Collection Time Receive d Time (Source) Location / / Volume Laterality Blood 05/15/2022 12:00 05/15/2022 PM EDT 12:19 PM EDT Resulting Agency Comment Spec In Lab Lc TRIPP HEMATOLOGY ORDERABLES Performing Organization Address City/State/[place] [address] (ABNORMAL) Basic Metabolic Panel (non-fasting) (05/15/2022 12:00 PM EDT) P athologist Signature Glucose Lvl 203 (H) 65 - 199 [facility] mg/dL [facility] LABORATORY Comment: Diabetes: >=200 mg/dL plus symp toms BUN 16 10 - 20 mg/dL [facility] LABORATORY Creatinine 0.84 0.80 - 1.50 mg/dL [facility] LABORATORY Sodium 141 135 - 145 mmol/L [facility] LABORATORY Potassium 4.7 3.5 - 5.0 mmol/L [facility] [...] LABORATORY Calcium 8.5 8.5 - 10.5 mg/dL [facility] LABORATORY Estimated GFR 89 >=60 [...] Resulting Agency Comment Spec In Lab Jhonny Moarles DO CHEMISTRY ORDERABLES Performing Organization Address City/State/[place] [address] documented in this encounter [...] - Reason: Transfer to a Procedural area)1955 ([facility] Unhold - Provider: Admin Adt) 08 (Given [...] - Reason: Transfer to a Procedural area)1955 ([facility] Unhold - Provider: Admin Adt)2131 (Given - [...] - Reason: Transfer to a Procedural area)1955 ([facility] Unhold - Provider: Admin Adt) 0817 [...] - Reason: Transfer to a Procedural area)1955 ([facility] Unhold - Provider: Admin Adt) 0816 [...] - Reason: Transfer to a Procedural area)1955 ([facility] Unhold - Provider: Admin Adt) 218 [...] bisacodyL (Dulcolax) suppository 10 mg 1 751 ([facility] Hold - Provider: Admin Adt - Reason: Transfer to a Procedural area)1955 ([facility] Unhold - Provider: Admin Adt) 10 [...] (porcine) (1,000 units/mL) injection 0-8,000 Units 175 ([facility] Hold - Provider: Admin Adt - Reason: Transfer to a Procedural area)1955 ([facility] Unhold - Provider: Admin Adt) 0-8,000 [...] injection (CANCELED) 1725 (Given - Provider: Flavia Shculer RN)1745 (Given - Provider: Negra Bailey RN) [...] - Reason: Transfer to a Procedural area)1955 ([facility] Unhold - Provider: Admin Adt) 3 [...] - Pr ovider: Emily Sauceda RN) 1750 ([facility] Hold - Provider: Admin Adt - R lexie: Transfer to a Procedural area)1955 ([facility] Unhold - Provider: Admin Adt) 5 [...] (Roxicodone) tablet 10-15 mg(Linked Group 2) 1750 ([facility] Hold - Provider: Admin Adt - Reason: Transfer to a Procedural area)1955 ([facility] Unhold - Provider: Admin Adt) 10-15 mg, Oral, EVERY 4 HOURS PRN, Start ing on Fri05/17/22 at 0655, Until Fri05/21/22 at 1743, Pain, severe pain (7-10), Initial dose 10mg. If pain control not adequate in 60 minutes, give additional 5mg, Routine oxyCODONE (Roxicodone) tablet 5-10 mg(Linked Group 2) 1750 ([facility] Hold - Provider: Admin Adt - Reason: Transfer to a Procedural area)1955 ([facility] Unhold - Provider: Admin Adt) 5-10 [...]
Routine documented in this encounter Care Teams Software Implementation Project Manager Relationship Specialty Start Date End Date Bobby Das MD PCP - General 10/02/[address] [place] [address] [place] [address] documented as of this encounter
--- OUTSIDE RECORDS SUMMARY | 2022-07-19 13:19 | XMS_ITS | Encounter Summary ---
:1940 Author Organization [place] [address] Care Team Providers Name Role Phone Bobby Das MD Primary Care Provider Reason for Referral Consultation (Routine) - Authorized Specialty Diagnoses / Procedures Referred By Contact Refer red To Contact Diagnoses Non-ST elevation myocardial infarction (NSTEMI) Limb ischemia Nasrin Parra PA [facility] [place] [address] [place] [address] Referral ID Status Reason Start Date Expiration Visits Visits Date Requested Authorized [id number] Authorized Consult, 05/21/2022 05/21/2023 1 1 Test & Treat iagnostic Test (Routine) - Closed Specialty Diagnoses / Procedures Referred By Contact Refer red To Contact Cardiology Diagnoses Paroxysmal atrial fibrillation Nasrin Parra PA [facility] Non-Inv Card Lab Procedures Ziopatch 48 Hrs-15 Days [facility] [place] [address] [place] [address] Fax: Referral ID Status Reason Start Date Expiration Date Visits V isits Requested Authorized [id number] Closed Specialty 05/21/2022 10/21/2022 1 1 Service Requested Consultation (Routine) - Closed Specialty Diagnoses / Procedures Referred By Contact Refer red To Contact Cardiology Diagnoses HFrEF (heart failure with reduced ejection fraction) Paroxysmal atrial fibrillation Post-hospital follow-up, s/p PCI with stenting, heart failure Nasrin Parra PA [facility] Cardiology 4a [facility] D R [facility] [place] [address] [place] [address] Referral ID Status Reason Start Date Expiration Date Visits V isits Requested Authorized [id number] Closed Consult, 05/21/2022 05/21/2023 1 1 Test & Treat iagnostic Test (Routine) - Authorized Specialty Diagnoses / Procedures Referred By Contact Refer red To Contact Diagnoses Limb ischemia Nasrin Parra PA [facility] Vascular Lab 3v Procedures JOSSELYN, legs, multiple levels [facility] [place] [address] [place] [address] Referral ID Status Reason Start Expiration Visits Visits Date Date Requested Authorized [id number] Authorized Specialty 05/21/2022 05/21/2023 1 1 Service [facility]ed [facility] (Routine) - Authorized Specialty Diagnoses / Procedures Referred By Contact Refer red To Contact Diagnoses Limb ischemia Fito Summers MD [facility] Health & Hospice, [facility] VASCULAR SURGERY [address] [place] [address] [address] Fax: Referral ID Status Reason Start Date Expiration Visits Visits Date Requested Authorized [id number] Authorized Consult, 05/21/2022 11/17/2022 999 999 Test & Treat Reason for Visit Reason Comments Left Leg Pain Auth/Cert Specialty Diagnoses / Procedures Referred By Contact Refer red To Contact Diagnoses Limb ischemia LLE thrombus Fito Summers MD [facility] D [place] [address] Referral ID Status Reason Start Date Expiration Date Visits Requ ested Visits Authorized [id number] 1 1 Encounter Details Date Type Department Care Team Description 05/15/2022 - Hospital Intermediate Cardiac Ravi Summers MD [facility] [place] [address] Atrial fibrillation, unspecified type; 05/21/2022 Encounter Care Unit Wellington Gerard MD [facility] [place] [address] Non-ST elevation myocardial infarction ( NSTEMI); [facility] Limb isch emia; [facility] HFrEF (heart failure with re duced ejection fraction); [facility] [place] [address] Social History Tobacco Use Types Packs/Day Years [...] onset Afib who presents in transfer from [facility] with acute limb ischemia of [...] emergently went to the OR for L COLLECTION MANAGER transverse arteriotomy and primary repair, thromboembolectomy of L SFA/PFA/COLLECTION MANAGER, reperfusion venous drainage for 250 cc, [...] Condition: Good Discharge to: Home with [address] [address] Future Appointments and Orders Future Appointments and Orders Future Appointments Provider Department Dept Phone 05/23/2022 10:30 AM Loretta Cohen MD Dermatology at [facility] Arrive at: [facility] [address] [place] [address] 06/07/2022 1:30 PM Gail Rae APRN Vascular Surgery at [facility] Arrive at: [facility] Area [phone] 06/13/2022 7:30 AM Edson Lagos [place] Vascular Lab at [facility] Arrive at: [facility] [phone] 06/13/2022 8:00 AM Fito Summers MD Vascular Surgery at [facility] Arrive at: [facility] [phone] 06/13/2022 10:00 AM Alan Reid MD Cardiology at [facility] Arrive at: [facility] [phone] Future Orders Complete By Expires Demetriusopatch 48 Hrs-15 Days [[id number] CPT(R)] 05/21/2022 11/20/2022 Process Instructions: Scheduling Instructions: Comments: Questions: Does the patient have a pacemaker? If yes provide HI/LO settings: Apply for 7 or 14 days?: 7 Where will study be performed?: [facility] Clinics JOSSELYN, legs, multiple levels [VAS8 Custom] 06/21/2022 (Approximate) 12/21/2022 Process Instructions: There is no in-house vascular slab off mill tender available on weeknights (5pm-8am), weekends, or holidays. IF THIS IS A REQUEST FOR AN EMERGENT STUDY DURING THOSE HOURS, please have the senior provider responsible for the patient page the Vascular Surgery Fellow/Senior Resident biodiesel plant operations engineer to discuss options. Scheduling Instructions: Questions: Indication for study/signs & symptoms: ALI s/p L fem cutdown with thromboembolectomy Question to be answered: Perfusion to feet? Please check toe pressure Preferred location?: [facility] Clinics Referral to Cardiology [REF12 Custom] As [...] Zamora for admission to Home Health. [address] [facility] [address] (home) Date of : 1940 Inpatient DOCUMENTATION FOR VNA SERVICES (INCLUDING THOSE PATIENTS WITH MEDICARE COVERAGE REQUIRING HOME VNA SERVICES AND/OR HOSPICE SERVICES) PATIENT'S LOCATION: Koko Zamora [address] [facility] [id number] (home) Cell: No relevant phone numbers on file. Defensive Line Coach's Name: Koko In discussion with the attending physician, it is certified that this patient is under their care and that they, or a Nurse Practitioner,Clinical Nurse specialist or Physician Graduate Teacher Education who is working directly with them, had [...] for managing ADL's. HOME HEALTH CARE AGENCY: [facility] [address] [place] [id number] Start of care: Within 24 to 48 [...] from this patient'sPCP: Bobby Das MD [address] [place] [phone] All A agencies which cover the [...] For any problems or questions please call [phone] For issues on weeknights after 5pm and weekends please call [phone] and ask for the Vascular Fellow biodiesel plant operations engineer. JOSEE Santiago Vascular Surgery 05/21/2022 documented [...] For any problems or questions please call [phone] For issues on weeknights after 5pm and weekends please call [phone] and ask for the Vascular Fellow biodiesel plant operations engineer. documented in this encounter Medications at [...] 04/12/20 21 (FLONASE) 50 mcg/actuation Nare route [place], Suspension daily as needed. fluorouraciL (EFUDEX) 5 [...] PM EDT Vascular Surgery Progress Note Koko Zamoar is a 81 y.o. male with w new onset Afib who presents in transfer from [facility] with acute limb ischemia of [...] status, full code. JOSEE Santiago 05/21/2022 Pager: [phone] Brannon Isaacs, PT - 05/21/2022 10:35 AM [...] plan as stated. Time IN / OUT: 1506-4431 Total Minutes, Physical Therapy: 25 Billing Code: 2 BOSTON Isaacs DPT Pager: [phone] Physical Therapy Inpatient Rehabilitation Department Wellington Jean [...] in Intermediate Cardiac Care Unit [facility] Office Visit from 04/17/2021 in Pain and Spine Center at [facility] Weight 79.8 kg (175 lb 14.8 oz) [...] and plan of care per Dr. Mcnamara (paint preparer). 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 His [...] Hosp-Admission (Current) [facility] Visit from 04/17/2021 in Pain and Spine Center at [facility] Weight 79.8 kg (175 lb 14.8 oz) [...] findings andplan of care per Dr. Mcnamara (paint preparer). Please refer to her note above for [...] a mitral repair in 2000 (not at [facility]) with no CAD at that time. Currently, [...] AF and the first documented HR at [facility] was 125 bpm (presented to an an [...] onset Afib who presents in transfer from [facility] with acute limb ischemia of [...] reviewed in chart Assessment & Plan: Koko Zmaora is a 81 y.o. male 5 Days [...] management following Dottie Hill APRN 05/20/2022 Pager: [phone] Laney Atkins RN - 05/20/2022 1:14 AM EDT Pt Koko transferred to room from [facility]. A&Ox4, oriented to room and call boo. Masimo and telemetry placed. In agreement with assessment as documented this evening by Nuris ASHLEY. No complaints at this time. Pt aware of NPO status and plan for cardiac cath in AM. Urinal provided. Resting comfortably in bed. Nuris Lester RN - 05/20/2022 1:09 AM EDT Pt. Transferred to [facility]. RN accompanied patient to floor and handed off to [facility] RN Dottie Hill APRN - 05/19/2022 10:02 AM EDT Vascular Surgery Progress Note Koko Zamora is a 81 y.o. male with w new onset Afib who presents in transfer from [facility] with acute limb ischemia of the LLE. ?? The patient had sudden pain starting at 630 05/15/22, he presented [facility] where he was placed on heparin. [...] management following Dottie Hill APRN 05/19/2022 Pager: [phone] Emily Greer RN - 05/19/2022 6:28 AM EDT OUTCOME EVALUATION NOTE: OUTCOME SUMMARY: Patient AOx4, VSS on RA. Afib on tele. HR controlled w/ PRN metop, given x2. Denies CP, SOB, n/v. See flowsheets for NVC. Dressings to LLE CDI, prevena WV to groin intact. Voiding to urinal. LBM FUEL CELL SYSTEMS ENGINEER, patient stating he will maybe try the [...] adequately without difficulty to bedside urinal. LBM FUEL CELL SYSTEMS ENGINEER. Up to chair this AM with nursing staff. Worked with PT, tolerated well. Diet changed to regular at 1800.Plan is for cardiac cath on Friday. PLAN MOVING FORWARD: Bleeding precautions Pain management neurovascular checks PT/OT slab tripper INDIVIDUALIZED FALL PREVENTION INTERVENTIONS: Patient-specific fall risk [...] onset Afib who presents in transfer from [facility] with acute limb ischemia of [...] mL Intravenous BID ??? PHENobarbitaL 0.12 mg/kg/dose ([place]) Oral BID ??? thiamine 100 mg Oral [...] management following Dottie Hill APRN 05/18/2022 Pager: [phone] Brannon Isaacs, PT - 05/18/2022 10:00 AM [...] IR Biopsy Spine 07/20/2019 Bobby Marshall MD [facility] RAD ??? IR VERTEBROPLASTY LUMBAR MULTIPLE LEVELS 07/20/2019 IR Vertebroplasty Lumbar Multiple Levels 07/20/2019 Bobby Marshall MD [facility] RAD ??? IR VERTEBROPLASTY THORACIC SINGLE LEVEL 10/25/2020 IR Vertebroplasty Thoracic Single Level 10/25/2020 Matt Chisholm MD [facility] RAD ??? PRO EMBLC/THRMBC FEMORAL POPLITEAL AORTO-ILIAC ARTERY Left 05/15/2022 EMBOLECTOMY OR THROMBECTOMY, FEMOROPOPLITEAL, AORTOILIAC ARTERY BY LEG INCISION (WRVU 19.48) performed by Fito Summers MD at [facility] MA[facility] OR Social History: Pt lives [...] in this evaluation. Time IN / OUT: 1394-4592 Total Minutes, Physical Therapy: 30 Billing Code: Basilio Isaacs, PT Pager: [phone] Physical Therapy Inpatient Rehabilitation Department Emily Sauceda RN - 05/18/2022 4:34 AM EDT OUTCOME EVALUATION NOTE: OUTCOME SUMMARY: Patient AOx4, VSS on 2LNC. Afib on tele. HR above 120, MD aware, PRN IV metop given x1, HR returned to 90's-low 100's. Denies CP, SOB, n/v. See flowsheets for NVC. Dressings to LLE CDI, prevena WV to groin intact. Voiding to urinal. LBM FUEL CELL SYSTEMS ENGINEER. Heparin gtt therapeutic. Pain controlled. Patient sleeping [...] adequately without difficulty to bedside urinal. LBM FUEL CELL SYSTEMS ENGINEER. Patient not OOB this shift. Currently NPO awaitingprocedure in labor relations analyst. PLAN MOVING FORWARD: Bleeding precautions Pain management neurovascular checks PT/OT NPO for labor relations analyst INDIVIDUALIZED FALL PREVENTION INTERVENTIONS: Patient-specific fall risk [...] the Emergency Department as a transfer from [facility] with left lower extremity limb ischemia. He went to [facility] and was startedon heparin and transferred to [facility] for evaluation by vascular surgery with subsequent [...] will will be going to the labor relations analyst for evaluation. Will defer PT eval at present but will see as ordered post cardiac catheritizaton. Social Hx:Pt lives with his Ursula in [place], [place] in a 2 level home in [...] WBAT LLE LISBET HERMAN PT Pager # [phone] In-Pt Rehab Medicine Dottie Hill APRN - 05/17/2022 7:42 AM EDT Vascular Surgery Progress Note Koko Zamora is a 81 y.o. male with w new onset Afib who presents in transfer from [facility] with acute limb ischemia of [...] mL Intravenous BID ??? PHENobarbitaL 0.24 mg/kg/dose ([place]) Oral BID Followed by ??? [START ON 05/18/2022] PHENobarbitaL 0.12 mg/kg/dose ([place]) Oral BID ??? thiamine 100 mg Oral [...] management following Dottie Hill APRN 05/17/2022 Pager: [phone] Sary Dos Santos, RN - 05/17/2022 12:16 [...] onset Afib who presents in transfer from [facility] with acute limb ischemia of [...] mL Intravenous BID ??? PHENobarbitaL 0.48 mg/kg/dose ([place]) Oral BID Followed by ??? [START ON 05/17/2022] PHENobarbitaL 0.24 mg/kg/dose ([place]) Oral BID Followed by ??? [START ON 05/18/2022] PHENobarbitaL 0.12 mg/kg/dose ([place]) Oral BID ??? thiamine 100 mg Oral [...] management following Edward Rodríguez MD 05/16/2022 Pager: [phone] Sary Dos Santos RN - 05/16/2022 12:52 [...] 2129 Hand off to DION Ramirez 3 ward documented in this encounter H&P Notes Kerry [...] onset Afib who presents in transfer from [facility] with acute limb ischemia of [...] IR Biopsy Spine 07/20/2019 Bobby Marshall MD [facility] RAD ??? IR VERTEBROPLASTY LUMBAR MULTIPLE LEVELS 07/20/2019 IR Vertebroplasty Lumbar Multiple Levels 07/20/2019 Bobby Marshall MD [facility] RAD ??? IR VERTEBROPLASTY THORACIC SINGLE LEVEL 10/25/2020 IR Vertebroplasty Thoracic Single Level 10/25/2020 Matt Chisholm MD [facility] RAD Social Hx: Social History [...] Refill ??? fluticasone propionate (FLONASE) 50 mcg/actuation [place], Suspension as needed. ??? fluorouraciL (EFUDEX) 5 [...] and consented. Tim Chicas MD 05/15/2022 Pager: [phone] documented in this encounter ED Notes Lc Harris PA - 05/15/2022 1:20 PM EDT ED Provider Note HPI: Koko Zamora is a 81 y.o. male with history of atrial fibrillation not on anticoagulation, and GI bleeding who presents to the Emergency Department as a transfer from [facility] with left lower extremity limb ischemia. Patient says that the symptoms started roughly 630 this morning when he developed severe pain in his left lower extremity. He went to [facility] and was started on heparin and transferred to [facility] for evaluation by vascular surgery. Review of [...] lower extremity earlier today and went to [facility] where it was determined that he had ischemia of the left lower extremity. Vascular surgery [facility] was contacted and he was transferred [...] orders before pt. Arrival. Pt. Arrived at [facility] by EMS at 1150, vascular team at [...] in an outpatient cardiac rehabilitation program at [facility] was discussed. Patient agrees to a referral to this program. Timing will depend on his recovery from Vascular surgery. He is going home w/VNA PT. I gave him the brochure for the program at [facility] for future reference. Care Management [...] information for follow-up [facility], [facility] [address] [place] [address] Transportation: family or friend will provide Functional [...] Type: *No Product type* / Secondary Insurance: [facility] Prescription Coverage: Yes This plan was formulated with input from patient and team. All are in agreement with plan. IP RS has communicated with [facility] - for initial IMM. RAlmita (Satish) DION López RN/CM - Cellphone: [phone] Pager: [phone] Covering Service RN/CM Plan of Care - [...] catheterization, transferred in hospital bed accompanied by Dozer Operator RN, remains on telemetry monitoring. Heparin [...] GOAL OUTCOME EVALUATION: Care Management - Nataly Hdoge RN - 05/20/2022 9:48 AM EDT OFFICE [...] Type: *No Product type* / Secondary Insurance: [facility] Last Physical Therapy Recommendation: home with home health, home with supervision with None Last Occupational Therapy Recommendation: with Plan for discharge is: Home w/ Services Outpatient Agency/Support Group Needs: None Home Health Services: Registered Nurse, Physical Therapy, Occupational Therapy Agency Referrals: I have met with the patient to: ?? discuss discharge planning needs. ?? provide the [facility], Office of Care Management letter from the [employer] pertaining to rehab referrals. ?? provide a letter describing our affiliations within the [facility] and educate about their right to choose where referrals are sent. ?? provide a list of Home Health Agencies / Durable Medical Equipment vendors which serve their preferred geographic area. ?? provided patient with [facility] Star Quality Rating handout. They have requested referrals to: [facility]. [address] [place] [address] Note routed to a Cable Cutter [employer] Swager who will communicate referrals to facilities and provide any required information. Transportation: family or friend will provide Barriers to discharge: None Plan going forward: Patient is going for a cardiac cath today and plan will come from there. Patientwas recently seen by PT and they recommend VNA at time of discharge. [facility] was routed and pendedat this time. Care Management will continue to follow and assist with discharge planning and coordination of care as indicated. Anticipated Date of Discharge: 05/21/2022 Nataly RICHMOND RN Phone: [phone] Pager: [phone] Plan of Care - Laney Atkins RN [...] original note were not included. [facility] [place] [address] [address] INPATIENT CARDIOLOGY CONSULT NOTE Date of Consultation: 05/17/2022 Admit Date: 05/15/2022 Hospital Day 2 days Reason for Consult: New afib Active Problems: Active Hospital Problems Diagnosis Limb ischemia Resolved Hospital Problems No resolved problems to display. HPI: Koko Zamora is a 81 y.o. male with a PMHx significant for MVP (s/p MV repair 2000), tobacco use, HLD, who presented to [facility] from OSH on 05/15 with acute limb ischemia of LLE and was found to be in atrial fibrillation. Patient had sudden onset LLE pain on 05/15 and presented to [facility], where he was started on heparin and transferred to [facility]. Upon arrival to [facility], patient was in atrial fib with [facility] [...] IR Biopsy Spine 07/20/2019 Bobby Marshall MD [facility] RAD IR VERTEBROPLASTY LUMBAR MULTIPLE LEVELS 07/20/2019 IR Vertebroplasty Lumbar Multiple Levels 07/20/2019 Bobby Marshall MD [facility] RAD IR VERTEBROPLASTY THORACIC SINGLE LEVEL 10/25/2020 IR Vertebroplasty Thoracic Single Level 10/25/2020 Matt Chisholm MD [facility] RAD PRO EMBLC/THRMBC FEMORAL POPLITEAL AORTO-ILIAC ARTERY Left 05/15/2022 EMBOLECTOMY OR THROMBECTOMY, FEMOROPOPLITEAL, AORTOILIAC ARTERY BY LEG INCISION (WRVU 19.48) performed by Fito Summers MD at [facility] Allergies Allergen Reactions Aspirin Other (See Comments) GI bleed Out-Patient Medications: Medications Prior to Admission Medication Sig Dispense Refill Last Dose fluorouraciL (EFUDEX) 5 % Cream daily. CRESTOR 40 mg Tablet Take 40 mg by mouth daily. fluticasone propionate (FLONASE) 50 mcg/actuation [place], Suspension as needed. ascorbic acid, vitamin C, [...] 5 mL Intravenous BID PHENobarbitaL 0.24 mg/kg/dose ([place]) Oral BID Followed by [START ON 05/18/2022] PHENobarbitaL 0.12 mg/kg/dose ([place]) Oral BID thiamine 100 mg Oral Daily folic acid 1,000 mcg Oral Daily multivitamin with minerals 1 tablet Oral Daily heparin (porcine) infusion 1,200 Units/hr (05/17/22 5091) Family History: No family history on file. [...] ED to Hosp-Admission (Current) from 05/15/[address] [place] [address] Office Visit from 04/17/2021 in Pain and Spine Center at [facility] Weight 79.8 kg (175 lb 14.8 oz) [...] continue to follow Anne-Marie Larson MD Pager [phone] Clinic: [phone] 05/17/22 6:22 PM Initial Assessments - Ifrah [...] spouse would be surrogate decision maker per [place] surrogate decision making law. (Only good for 180 days) Any patient receiving care at [facility] must abide by [place] law. The hierarchy for surrogate decision making [...] (i) The agent with financial power of document review attorney or a conservator appointed in accordance [...] raised toilet seat Home Address confirmed as: [facility] [facility] [address] Social & Family Supports: All names listed below confirmed with patient as Incorrect. Will notify conifer to correct. Wifes address is same as and phone is [phone]. Extended Emergency Contact Information Primary Emergency Contact: Demarco Zamorana Address: [facility] [place] [address] [facility] Relation: Spouse Current Care Provided [...] Type: *No Product type* / Secondary Insurance: [facility] Prescription Coverage: Yes Preferred Pharmacy: [id number] - [place], [place] - [address] [facility] [address] [place] [address] [facility] - [place], [place] - [address] [facility] [address] [facility] [address] [place] Status: Patient is a : unable to assess Primary Care Provider: Bobby Das MD [phone] Patient/Caregiver Goals of Treatment: to walk again Potential Needs for Transition of Care: none noted per 05/16 IDR Transportation: family will provide Transportation Anticipated: family or friend will provide Concerns to be Addressed: no discharge needs identified Assessment: Patient is admitted to vascular surg service for left lower extremity limb ischemia Plan: Per PT OT recommendations . Has used [facility] in the past. A member of the Care Management team will continue to monitor progress, follow for continuity of care and assist with transition of care planning. Ifrah Bell RN BSN AssessorTrauma Registrar of Care Management Pager [phone] Brief Op Note - Erin Garza MD - 05/15/2022 5:04 PM EDT Brief Operative Note Patient Name: Koko Zamora : [id number] MR#: [id number] Case Date: 05/15/2022 Surgeon: Surgeon(s) and Role: [...] Garza MD - 05/15/2022 2:08 PM EDT [facility] Operative Note Patient Name: Koko Zamora : [id number] MR#: [id number] Case Date: 05/15/2022 Surgeon: Surgeon(s) and Role: [...] MD [facility] GASTROENTEROLOGY DEPT [place], [place] [address] (Wo rk) 09/05/2022 Appointment Cardiology Trinity Reid MD [facility] CARDIOLOGY [place], [place] [address] (Wo rk) 09/05/2022 Office Visit Cardiology Trinity Reid MD [facility] CARDIOLOGY [place], [place] [address] (Wo rk) Scheduled Referrals [...] Department: Vascular Surgery Lab VASCUBASE Report Patient: [id number] (KOKO ZAMORA) CPT: 24226 Referring Physician: FITO SUMMERS ?? Phone: Indications: s/p L COLLECTION MANAGER endart. Diabetes mellitus: no Findings: Right [...] EDT) athologist Signature Heparin UFH 0.42 IU/mL [facility] LABORATORY Comment: Heparin (anti-Xa) levels should [...] Organization Address City/State/[place] [address] Differential, Automated (05/21/2022 6:15 AM EDT) athologist Signature Neutrophils % 58.8 % [facility] LABORATORY Neutr Abs (ANC) 3.97 1.70 - [facility] 6.10 [facility] x10(3)[facility] LABORATORY Lymphocytes % 25.2 % [facility] LABORATORY Lymphocytes Abs 1.7 0.9 - 3.2 [facility] x10(3)/[facility] LABORATORY Monocytes % 12.9 % [facility] LABORATORY Monocyte Abs 0.9 0.3 - 0.9 [facility] x10(3)[facility] LABORATORY Eosinophils % 2.1 % [facility] LABORATORY Eosinophils Abs 0.1 0.0 - 0.4 [facility] x10(3)/[facility] LABORATORY Basophils % 0.4 % [facility] LABORATORY Basophils Abs 0.0 0.0 - 0.1 [facility] x10(3)/[facility] LABORATORY Immature Gran % 0.60 % [facility] LABORATORY Comment: Immature granulocytes(IG's)percentage an d absolute count will include metamyelocytes, myelocytes, and promyelo cytes. Blood smears from CBCs yielding IG's will be scanned manually for concor dance. If this scan disagrees with the automated IG or if promyelocytes are not ed, a manual differential will be performed. Rain Gran Abs 0.04 0.00 - 0.04 x10(3)/[facility] LABORATORY Specimen Anatomical Collection Method Collection Time Receive d Time (Source) Location / / Volume Laterality Blood 05/21/2022 6:15 AM 2 6:38 EDT AM EDT Resulting Agency Comment Spec In Lab Edward Rodríguez MD HEMATOLOGY ORDERABLES Performing Organization Address City/State/[place] [address] (ABNORMAL) Hemogram (05/21/2022 6:15 AM EDT) [facility] gist Method Time Signature WBC 6.8 4.0 - 9.5 [facility] LABORATORY RBC 3.59 (L) 4.58 - [place] 5.54 [facility] x10(6)/[facility] LABORATORY Hemoglobin 11.8 (L) 13.7 - [facility] 16.5 g/dL [facility] LAB[facility]AT[facility] Hematocrit 34.5 (L) 40.5 - [facility] 48.5 % [facility] MCV 96.1 (H) 82.9 - [facility] XIAO 93.1 [facility] LABORATORY MCH 32.9 (H) 27.5 - [place] [place] 32.1 pg [facility] MCHC 34.2 32.0 - [place] [place] 35.7 g/dL [facility] Platelets 198 145 - 357 [facility] x10(3)/[facility] LABORATORY RDWSD 44.9 36.0 - [place] [address] [facility] LABORATORY RDWCV 12.6 11.4 - [facility] XIAO 13.8 % [facility] MPV 10.0 7.6 - 12.9 [facility] nRBC % Auto 0.3 % [facility] LABORATORY nRBC Abs Auto 0.020 (H) 0.000 - [place] 0.000 [facility] x10(3)/[facility] LABORATORY Specimen Anatomical Collection Method Collection Time Receive d Time (Source) Location / / Volume Laterality Blood 05/21/2022 6:15 AM 2 6:38 EDT AM EDT Resulting Agency Comment Spec In Lab Edward Rodríguez MD HEMATOLOGY ORDERABLES Performing Organization Address City/State/[place] [address] EKG 12 Lead (05/20/2022 7:04 PM EDT) Component Value Ref Range Test Analysis Performed Pathologis t Method Time At Signature Ventricular rate 101 BPM MUSE SYSTEM QRS Duration 116 ms MUSE SYSTEM Q-T Interval 378 ms MUSE SYSTEM QTC Calculated 490 ms MUSE SYSTEM (Bezet) Calculated R [place] -53 degrees MUSE SYSTEM Calculated T [place] 101 degrees MUSE SYSTEM INTERPRETATION Atrial fibrillation [...] Laterality Volume Narrative 05/20/2022 7:09 PM EDT ?[facility] ? Cardiac Cathete rization/Intervention Report ? Patient Name: Koko Zamora ? Procedure Date: 05/20/2022 ? A #: [id number] ? Primary Physician: Abundio Servin ? Case #: [id number] ? File Name: [id number] ? Catheterization Order Number: [id number] ? [facility] ? Final Report [place], [place] ? Patient Name: ? Koko J. Klarissa uson ? ID#: ?[id number] ? : ?1940 ? Procedure Date: ? [...] was Urgent. 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 Chest pain symptom [...] ?3.5 guiding catheter and a 3.[address] [facility] [address] ??20 Mhz. ??Imaging ?was successful. ??Image [...] A premounted 2. 75 x 30 mm Craig [place] (AMPARO) was deployed ? with a maximum [...] require ?modification of this regimen. C onsult [facility] Interventional Cardiology for ?questions. ?The 1 year [...] note might be different from the original. [facility] Cardiac Catheterization/Intervention Re port Patient Name: Koko Zamora Procedure Date: 05/20/2022 A #: [id number] Primary Physician: Abundio Servin Case #: File Name: [id number] Catheterization Order Number: [id number] [facility] Final Report [place], [place] Patient Name: Koko Zamora ID#: [id number] : 1940 Procedure Date: May 20, 2022 [...] designated a s ASA Class IV. The [facility] clinical frailty scale is 3: Managing [...] was Urgent. The indication for the labor relations analyst visit is cardiomyopathy. C hest pain symptom [...] 3.5 guiding catheter and a 3.[address] 20 Mhz. Imaging was successful. Image [...] this intervention wa s 15%. The final LAE flow was 3. First Obtuse Marg[place] [...] atmospheres. A premounted 2.75 x 30 mm Craig [place] (AMPARO) was deployed with a maximum inflation [...] modification of this regimen. Consult [facility] Interventional Cardiology for questions. The 1 year [...] 123 65 - 199 [place] mg/dL [facility]AT[facility] Comment: Supplemental ranges: <140 mg/dL before meals <180 mg/dL all other times of the day Specimen Anatomical Collection Method Collection Time Receive d Time (Source) Location / / Volume Laterality Blood 05/20/2022 5:42 PM 5:42 EDT PM EDT Fito Summers MD POINT OF CARE TEST ORDERABLE S Performing Organization Address City/State/ZIP [place] [address] (ABNORMAL) BMP w/fasting Glucose (05/20/2022 10:50 AM EDT) P athologist Signature Glucose 152 (H) 65 - 99 [facility] Fasting mg/dL [facility] Comment: ?Fasting* Glucose Interpretive C riteria [...] of Diabetes Mellitus, Position Statement from the [place] [employer]. ??Diabete s Care, Volume 33, Supplement 1, Nov 2009 BUN 11 10 - 20 mg/dL [facility] LABORATORY Creatinine 0.63 (L) 0.80 - 1.50 mg/dL [facility] LABORATORY Sodium 137 135 - 145 mmol/L [facility] LABORATORY Potassium 3.6 3.5 - 5.0 mmol/L [facility] LABORATORY Comment: Please note: ??Patients with WBC >100,00 0 may have falsely elevated Potassium levels. ??For accurate Potassium quantif ication in these patients send serum separator tube (gold top) for subsequent determinations. ??Contact the Clinical Chemistry Laboratory if there are any qu estions. Chloride 103 98 - 107 mmol/L [facility] LABORATORY CO2 24 22 - 31 mmol/L [facility] LABOR[facility] Anion Gap 10 5 - 15 mmol/L [facility] LABORATORY Calcium 8.7 8.5 - 10.5 mg/dL [facility] LABORATORY Estimated GFR 97 >=60 mL/min/1.73 m?? [facility] LABORATORY Comment: This patient's estimated [...] Organization Address City/State/[place] [address] Heparin (unfractionated) Level (05/20/2022 5:02 AM EDT) athologist Signature Heparin UFH 0.57 IU/mL [facility] LABORATORY Comment: Heparin (anti-Xa) levels should [...] Organization Address City/State/[place] [address] (ABNORMAL) Differential, Automated (05/20/2022 5:02 AM EDT) Patholo gist Method Time Signature Neutrophils % 58.1 % [facility] LABORATORY Neutr Abs (ANC) 4.52 1.70 - [facility] 6.10 [facility] x10(3)/[facility] LABORATORY Lymphocytes % 24.1 % [facility] LABORATORY Lymphocytes Abs 1.9 0.9 - 3.2 [facility] x10(3)/[facility] LABORATORY Monocytes % 13.8 % [facility] LABORATORY Monocyte Abs 1.1 (H) 0.3 - 0.9 [facility] x10(3)/[facility] LABORATORY Eosinophils % 2.6 % [facility] LABORATORY Eosinophils Abs 0.2 0.0 - 0.4 [facility] x10(3)/[facility] LABORATORY Basophils % 0.8 % [facility] LABORATORY Basophils Abs 0.1 0.0 - 0.1 [facility] x10(3)/[facility] LABORATORY Immature Gran % 0.60 % [facility] LABORATORY Comment: Immature granulocytes(IG's)percentage an d absolute count will include metamyelocytes, myelocytes, and promyelo cytes. Blood smears from CBCs yielding IG's will be scanned manually for concneli danlara. If this scan disagrees with the automated IG or if promyelocytes are not ed, a manual differential will be performed. Rain Gran Abs 0.05 (H) 0.00 - 0.04 x10(3)/[facility] LABORATORY Specimen Anatomical Collection Method Collection Time Receive d Time (Source) Location / / Volume Laterality Blood 05/20/2022 5:02 AM 5:19 EDT AM EDT Resulting Agency Comment Spec In Lab Edward Rodríguez MD HEMATOLOGY ORDERABLES Performing Organization Address City/State/[place] [address] (ABNORMAL) Hemogram (05/20/2022 5:02 AM EDT) Analysis Performed At Patho logist Time Signature WBC 7.8 4.0 - 9.5 [facility] x10(3)/[facility] LABORATORY RBC 3.53 (L) 4.58 - [facility] XIAO 5.54 [facility] x10(6)/[facility] LABORATORY Hemoglobin 11.4 (L) 13.7 - [place] 16.5 g/dL [facility] Hematocrit 34.3 (L) 40.5 - [facility] XIAO 48.5 % [facility] MCV 97.2 (H) 82.9 - [facility] XIA[address] 93.[address] [facility] LABORATORY MCH 32.3 (H) 27.5 - [facility] 32.1 pg [facility] MCHC 33.2 32.0 - [facility] 35.7 g/dL [facility] Platelets 181 145 - 357 [facility] x10(3)/[facility] LABORATORY RDWSD 46.4 (H) 36.0 - [facility] XIAO 45.[address] [facility] LABORATORY RDWCV 13.0 11.4 - [facility] 13.8 % [facility] MPV 10.4 7.6 - 12.9 [facility] LABORATORY nRBC % Auto 0.0 % [facility] LABORATORY nRBC Abs Auto 0.000 0.000 - [facility] 0.000 [facility] x10(3)/[facility] LABORATORY Specimen Anatomical Collection Method Collection Time Receive d Time (Source) Location / / Volume Laterality Blood 05/20/2022 5:02 AM 2 5:19 EDT AM EDT Resulting Agency Comment Spec In Lab Edward Rodríguez MD HEMATOLOGY ORDERABLES Performing Organization Address City/State/ZIP [place] [address] Heparin (unfractionated) Level (05/19/2022 3:26 AM EDT) P athologist Signature Heparin UFH 0.59 IU/mL [facility] LABORATORY Comment: Heparin (anti-Xa) levels should [...] Address City/State/ZIP [place] [address] (ABNORMAL) Differential, Automated (05/19/2022 3:26 AM EDT) Patholo gist Method Time Signature Neutrophils % 62.1 % [facility] LABORATORY Neutr Abs (ANC) 4.59 1.70 - [facility] 6.10 [facility] x10(3)/[facility] LABORATORY Lymphocytes % 22.1 % [facility] LABORATORY Lymphocytes Abs 1.6 0.9 - 3.2 [facility] x10(3)/[facility] LABORATORY Monocytes % 13.5 % [facility] LABORATORY Monocyte Abs 1.0 (H) 0.3 - 0.9 [facility] x10(3)/[facility] LABORATORY Eosinophils % 1.3 % [facility] LABORATORY Eosinophils Abs 0.1 0.0 - 0.4 [facility] x10(3)/[facility] LABORATORY Basophils % 0.5 % [facility] LABORATORY Basophils Abs 0.0 0.0 - 0.1 [facility] x10(3)/[facility] LABORATORY Immature Gran % 0.50 % [facility] LABORATORY Comment: Immature granulocytes(IG's)percentage an d absolute count will include metamyelocytes, myelocytes, and promyelo cytes. Blood smears from CBCs yielding IG's will be scanned manually for concor dance. If this scan disagrees with the automated IG or if promyelocytes are not ed, a manual differential will be performed. Rain Gran Abs 0.04 0.00 - 0.04 x10(3)/[facility] LABORATORY Specimen Anatomical Collection Method Collection Time Receive d Time (Source) Location / / Volume Laterality Blood 05/19/2022 3:26 AM 2 3:59 EDT AM EDT Resulting Agency Comment Spec In Lab Edward Rodríguez MD HEMATOLOGY ORDERABLES Performing Organization Address City/State/[place] [address] (ABNORMAL) Hemogram (05/19/2022 3:26 AM EDT) Analysis Performed At Patho logist Time Signature WBC 7.4 4.0 - 9.5 [facility] x10(3)/[facility] LABORATORY RBC 3.74 (L) 4.58 - [facility] 5.54 [facility] x10(6)/[facility] LABORATORY Hemoglobin 12.1 (L) 13.7 - [place] 16.5 g/dL [facility] Hematocrit 36.4 (L) 40.5 - [place] 48.5 % [facility] MCV 97.3 (H) 82.9 - [place] 93.[address] [facility] LABORATORY MCH 32.4 (H) 27.5 - [place] 32.1 pg [facility] MCHC 33.2 32.0 - [place] 35.7 g/dL [facility] Platelets 168 145 - 357 [facility] x10(3)/[facility] LABORATORY RDWSD 46.9 (H) 36.0 - [place] 45.[address] [facility] LABORATORY RDWCV 13.0 11.4 - [facility] 13.8 % [facility] MPV 10.5 7.6 - 12.9 [facility] LABORATORY nRBC % Auto 0.0 % [facility] LABORATORY nRBC Abs Auto 0.000 0.000 - [facility] 0.000 [facility] x10(3)/[facility] LABORATORY Specimen Anatomical Collection Method Collection Time Receive d Time (Source) Location / / Volume Laterality Blood 05/19/2022 3:26 AM 2 3:59 EDT AM EDT Resulting Agency Comment Spec In Lab Edward Rodríguez MD HEMATOLOGY ORDERABLES Performing Organization Address City/State/[place] [address] TSH (05/18/2022 8:00 PM EDT) P athologist Signature TSH 2.27 0.27 - 4.20 [place] [place] mcIU/mL [facility] Comment: Reference Interval (mcIU/mL): Females: ??First Trimester: 0.23-3.88 ??Second Trimester: 0.22-3.90 ??Third Trimester: 0.44-4.66 Specimen Anatomical Collection Method Collection Time Receive d Time (Source) Location / / Volume Laterality Blood 05/18/2022 8:00 PM 2 8:06 EDT PM EDT Resulting Agency Comment Spec In Lab Fito Summers MD CHEMISTRY ORDERABLES Performing Organization Address City/State/ZIP Code Phon e Number [address] (ABNORMAL) Differential, Automated (05/18/2022 3:34 AM EDT) [facility] Method Time Signature Neutrophils % 67.2 % [facility] LABORATORY Neutr Abs (ANC) 5.89 1.70 - [facility] 6.10 [facility] x10(3)/[facility] LABORATORY Lymphocytes % 17.1 % [facility] LABORATORY Lymphocytes Abs 1.5 0.9 - 3.2 [facility] x10(3)/[facility] LABORATORY Monocytes % 13.6 % [facility] LABORATORY Monocyte Abs 1.2 (H) 0.3 - 0.9 [facility] x10(3)/[facility] LABORATORY Eosinophils % 1.0 % [facility] LABORATORY Eosinophils Abs 0.1 0.0 - 0.4 [facility] x10(3)/[facility] LABORATORY Basophils % 0.6 % [facility] LABORATORY Basophils Abs 0.0 0.0 - 0.1 [facility] x10(3)/[facility] LABORATORY Immature Gran % 0.50 % [facility] LABORATORY Comment: Immature granulocytes(IG's)percentage an d absolute count will include metamyelocytes, myelocytes, and promyelo cytes. Blood smears from CBCs yielding IG's will be scanned manually for concor dance. If this scan disagrees with the automated IG or if promyelocytes are not ed, a manual differential will be performed. Rain Gran Abs 0.04 0.00 - 0.04 x10(3)/[facility] LABORATORY Specimen Anatomical Collection Method Collection Time Receive d Time (Source) Location / / Volume Laterality Blood 05/18/2022 3:34 AM 3:48 EDT AM EDT Resulting Agency Comment Spec In Lab Edward Rodríguez MD HEMATOLOGY ORDERABLES Performing Organization Address City/[facility]/ZIP Code Phon e Number [address] (ABNORMAL) Hemogram (05/18/2022 3:34 AM EDT) Analysis Performed At Patho logist Time Signature WBC 8.8 4.0 - 9.5 [facility] x10(3)/[facility] LABORATORY RBC 3.45 (L) 4.58 - [place] 5.54 [facility] x10(6)/[facility] LABORATORY Hemoglobin 11.2 (L) 13.7 - [place] 16.5 g/dL [facility] Hematocrit 33.0 (L) 40.5 - [place] 48.5 % [facility] MCV 95.7 (H) 82.9 - [place] [address] [facility] LABORATORY MCH 32.5 (H) 27.5 - [place] 32.1 pg [facility] MCHC 33.9 32.0 - [facility] 35.7 g/dL [facility] Platelets 130 (L) 145 - 357 [facility] x10(3)/[facility] LABORATORY RDWSD 46.2 (H) 36.0 - [place] [address] [facility] LABORATORY RDWCV 13.2 11.4 - [place] 13.8 % [facility] MPV 10.8 7.6 - 12.9 [facility] LABORATORY nRBC % Auto 0.0 % [facility] LABORATORY nRBC Abs Auto 0.000 0.000 - [facility] 0.000 [facility] x10(3)/[facility] LABORATORY Specimen Anatomical Collection Method Collection Time Receive d Time (Source) Location / / Volume Laterality Blood 05/18/2022 3:34 AM 3:48 EDT AM EDT Resulting Agency Comment Spec In Lab Edward Rodríguez MD HEMATOLOGY ORDERABLES Performing Organization Address City/State/ZIP [place] [address] Heparin (unfractionated) Level (05/18/2022 [...] Summers MD HEMATOLOGY ORDERABLES Performing Organization Address City/[facility]/ZIP [place] [address] Magnesium (05/17/2022 3:33 AM EDT) athologist Signature Magnesium 0.76 0.69 - 1.07 [facility] mmol/L [facility] Specimen Anatomical Collection Method Collection Time Receive d Time (Source) Location / / Volume Laterality Blood Venous Draw / 05/17/2022 3:33 AM 05/17/20 4:05 Unknown EDT AM EDT Resulting Agency Comment Spec In Lab Dottie Hill APRN CHEMISTRY ORDERABLES Performing Organization Address City/[facility]/ZIP [place] [address] (ABNORMAL) Basic Metabolic Panel (non-fasting) (05/17/2022 3:33 AM EDT) athologist Signature Glucose Lvl 158 65 - 199 [facility] mg/dL [facility] Comment: Diabetes: >=200 mg/dL plus symp toms BUN 12 10 - 20 mg/dL [facility] LABORATORY Creatinine 0.74 (L) 0.80 - 1.50 mg/dL [facility] LABORATORY Sodium 137 135 - 145 mmol/L [facility] LABORATORY Potassium 3.5 3.5 - 5.0 mmol/L [facility] LABORATORY Comment: Please note: ??Patients with WBC >100,00 0 may have falsely elevated Potassium levels. ??For accurate Potassium quantif ication in these patients send serum separator tube (gold top) for subsequent determinations. ??Contact the Clinical Chemistry Laboratory if there are any qu estions. Chloride 102 98 - 107 mmol/L [facility] LABORATORY CO2 25 22 - 31 mmol/L [facility] Anion Gap 10 5 - 15 mmol/L [facility] LABORATORY Calcium 8.4 (L) 8.5 - 10.5 mg/dL [facility] LABORATORY Estimated GFR 92 >=60 mL/min/1.73 m?? [facility] Comment: This patient's estimated [...] Organization Address City/State/[place] [address] (ABNORMAL) Differential, Automated (05/17/2022 3:33 AM EDT) [facility] gist Method Time Signature Neutrophils % 65.5 % [facility] LABORATORY Neutr Abs (ANC) 6.84 (H) 1.70 - [facility] 6.10 [facility] x10(3)/[facility] LABORATORY Lymphocytes % 19.7 % [facility] LABORATORY Lymphocytes Abs 2.1 0.9 - 3.2 [facility] x10(3)/[facility] LABORATORY Monocytes % 13.1 % [facility] LABORATORY Monocyte Abs 1.4 (H) 0.3 - 0.9 [facility] x10(3)/[facility] LABORATORY Eosinophils % 0.6 % [facility] LABORATORY Eosinophils Abs 0.1 0.0 - 0.4 [facility] x10(3)/[facility] LABORATORY Basophils % 0.6 % [facility] LABORATORY Basophils Abs 0.1 0.0 - 0.1 [facility] x10(3)/[facility] LABORATORY Immature Gran % 0.50 % [facility] LABORATORY Comment: Immature granulocytes(IG's)percentage an d absolute count will include metamyelocytes, myelocytes, and promyelo cytes. Blood smears from CBCs yielding IG's will be scanned manually for concor dance. If this scan disagrees with the automated IG or if promyelocytes are not ed, a manual differential will be performed. Rain Gran Abs 0.05 (H) 0.00 - 0.04 x10(3)/[facility] LABORATORY Specimen Anatomical Collection Method Collection Time Receive d Time (Source) Location / / Volume Laterality Blood 05/17/2022 3:33 AM 3:53 EDT AM EDT Resulting Agency Comment Spec In Lab Edward Rodríguez MD HEMATOLOGY ORDERABLES Performing Organization Address City/State/[place] [address] (ABNORMAL) Hemogram (05/17/2022 3:33 AM EDT) Analysis Performed At Patho logist Time Signature WBC 10.4 (H) 4.0 - 9.5 [facility] x10(3)/[facility] LABORATORY RBC 3.72 (L) 4.58 - [facility] 5.54 [facility] x10(6)/[facility] LABORATORY Hemoglobin 12.0 (L) 13.7 - [facility] [place] 16.5 g/dL [facility] Hematocrit 36.4 (L) 40.5 - [facility] [place] 48.5 % [facility] MCV 97.8 (H) 82.9 - [facility] 93.1 [facility] LABORATORY MCH 32.3 (H) 27.5 - [facility] [place] 32.1 pg [facility] MCHC 33.0 32.0 - [facility] 35.7 g/dL [facility] Platelets 149 145 - 357 [facility] x10(3)/[facility] LABORATORY RDWSD 48.7 (H) 36.0 - [facility] XIAO 45.0 [facility] LABORATORY RDWCV 13.5 11.4 - [place] 13.8 % [facility] MPV 10.6 7.6 - 12.9 [facility] LABORATORY nRBC % Auto 0.0 % [facility] LABORATORY nRBC Abs Auto 0.000 0.000 - [place] [place] 0.000 [facility] x10(3)/[facility] LABORATORY Specimen Anatomical Collection Method Collection Time Receive d Time (Source) Location / / Volume Laterality Blood 05/17/2022 3:33 AM 3:53 EDT AM EDT Resulting Agency Comment Spec In Lab Edward Rodríguez MD HEMATOLOGY ORDERABLES Performing Organization Address City/[facility]/[place] [address] (ABNORMAL) Urinalysis Microscopic Exam (05/16/2022 11:15 PM EDT) P athologist Signature RBC UA 8 (H) 0 - 3 /HPF [facility] LABORATORY WBC UA 2 0 - 3 /HPF [facility] LABORATORY Specimen Anatomical Collection Method Collection Time Receive d Time (Source) Location / / Volume Laterality Clean Catch 05/16/2022 11:15 05/16/2022 Urine PM EDT 11:30 PM EDT Resulting Agency Comment Spec In Lab Barbie Ashraf MD URINE ORDERABLES Performing Organization Address City/State/ZIP Code Phon [place] [address] (ABNORMAL) Urinalysis with reflex Culture (05/16/2022 11:15 PM EDT) Patholo gist Method Time Signature Glucose UA Negative Negative [facility] mg/dL [facility] Protein UA Negative Negative [facility] mg/dL [facility] Bilirubin UA Negative Negative [facility] mg/dL [facility] Comment: Clinical correlation required for positi ve Urine Bilirubin results as false positive may occur with some drugs and d rug related products. If a false positive is suspected a serum total bili quarles should be considered if clinically indicated. Urobilinogen UA Normal Normal mg/dL [facility] LABORATORY pH UA 6.0 5.0 - 8.0 [facility] LABORATORY Blood UA Small (A) Negative mg/dL [facility] LABOR[facility]ORY Ketones UA Trace (A) Negative mg/dL [facility] LABOR[facility] Nitrite UA Negative Negative [facility] LABORATORY Leukocytes UA Negative Negative [facility] LABORATORY Appearance UA Clear Clear [facility] LABORATORY Spec [place] UA 1.021 1.005 - 1.030 [facility] LABOR[facility] Color UA Yellow Yellow [facility] LABORATORY Culture Reflexed No [facility] LABORATORY Specimen Anatomical Collection Method Collection Time Receive d Time (Source) Location / / Volume Laterality Clean Catch 05/16/2022 11:15 05/16/2022 Urine PM EDT 11:30 PM EDT Resulting Agency Comment Spec In Lab Fito Summers MD URINE ORDERABLES Performing Organization Address City/State/[place] [address] Heparin (unfractionated) Level (05/16/2022 10:59 PM EDT) P athologist Signature Heparin UFH 0.65 IU/mL [facility] LABORATORY Comment: Specimen drawn more than [...] Organization Address City/State/ZIP Code Phon e Number [place] [phone] HOSPITAL LAB[address]ORY Drive XR Chest One View [...] have questions please contact the health care navigator that requested your imaging first. ? Narrative [...] have questions please contact the health care navigator that requested your imaging first. iFto Summers MD IMG DX ORDERABLES EKG 12 Lead (05/16/2022 8:57 PM EDT) Component Value Ref Range Test Analysis Performed Pathologis t Method Time At Signature Ventricular rate 117 BPM MUSE SYSTEM QRS Duration 112 ms MUSE SYSTEM Q-T Interval 346 ms MUSE SYSTEM QTC Calculated 482 ms MUSE SYSTEM (Bezet) Calculated R [place] -48 degrees MUSE SYSTEM Calculated T [place] 111 degrees MUSE SYSTEM INTERPRETATION Atrial fibrillation [...] Summers MD ECG ORDERABLES Performing Organization Address City/[facility]/ZIP Code Phon e Number MUSE SYSTEM Heparin (unfractionated) Level (05/16/2022 4:34 PM EDT) P athologist Signature Heparin UFH 0.53 IU/mL [facility] LABORATORY Comment: Heparin (anti-Xa) levels should [...] Summers MD HEMATOLOGY ORDERABLES Performing Organization Address City/[facility]/[place] [address] ECHOCARDIOGRAM COMPLETE W CONTRAST (05/16/2022 12:49 PM EDT) P athologist Signature EF 28 HEARTLAB SYSTEM Anatomical Region Laterality Modality Cardiac Other Specimen (Source) Anatomical Collection Method Collection Time Re ceived Time Location / / Volume Laterality 05/16/2022 11:22 AM EDT Narrative 05/16/2022 1:54 PM EDT ?[facility] ?[address] ? [place] [address] ?Voice: ?Fax: ? Echocardiogram Report Name: KOKO ZAMORA ?Study Date: 05/16/2022 11:22 AM ? Patient Location: 3T 0303 B : 1940 ? Height: 67.5 in ? Account: [id number] Age: 81 yrs ? Weight: 176 lb Gender: Male ?BSA: 1.9 m2 Ordering Physician: FITO SUMMERS Referring Physician: MALI FLORIAN Performed By: Jolene Bernard RDCS Exam Location: [facility]. Interpretation Summary Left ventricle is mildly dilated. [...] and LV systolic dysfunction are new. Procedure Complete-[id number]. Image enhancement Optiso n was used for [...] note might [place] [address] Voice: Fax: Echocardiogram Report Name: KOKO ZAMORA Study Date: 05/2022 11:22 AM Patient Location: [address] [place] [address] : 1940 Height: 67.5 in Account: [id number] Age: 81 yrs Weight: 176 lb Gender: Male BSA: 1.9 m2 Ordering Physician: FITO SUMMERS Referring Physician: MALI FLORIAN Performed By: Jolene Bernard RDCS Exam Location: [facility]. Interpretation Summary Left ventricle is mildly dilated. [...] and LV systolic dysfunction are new. Procedure Complete-[id number]. Image enhancement Optiso n was used for [...] (ABNORMAL) Differential, Automated (05/16/2022 3:01 AM EDT) [facility] Method Time Signature Neutrophils % 78.8 % [facility] LABORATORY Neutr Abs (ANC) 9.11 (H) 1.70 - [facility] 6.10 [facility] x10(3)/[facility] LABORATORY Lymphocytes % 9.4 % [facility] LABORATORY Lymphocytes Abs 1.1 0.9 - 3.2 [facility] x10(3)/[facility] LABORATORY Monocytes % 10.9 % [facility] LABORATORY Monocyte Abs 1.3 (H) 0.3 - 0.9 [facility] x10(3)/[facility] LABORATORY Eosinophils % 0.0 % [facility] LABORATORY Eosinophils Abs 0.0 0.0 - 0.4 [facility] x10(3)/[facility] LABORATORY Basophils % 0.3 % [facility] LABORATORY Basophils Abs 0.0 0.0 - 0.1 [facility] x10(3)/[facility] LABORATORY Immature Gran % 0.60 % [facility] LABORATORY Comment: Immature granulocytes(IG's)percentage an d absolute count will include metamyelocytes, myelocytes, and promyelo cytes. Blood smears from CBCs yielding IG's will be scanned manually for concor dance. If this scan disagrees with the automated IG or if promyelocytes are not ed, a manual differential will be performed. Rain Gran Abs 0.07 (H) 0.00 - 0.04 x10(3)/[facility] LABORATORY Specimen Anatomical Collection Method Collection Time Receive d Time (Source) Location / / Volume Laterality Blood 05/16/2022 3:01 AM 3:36 EDT AM EDT Resulting Agency Comment Spec In Lab Erin Garza MD HEMATOLOGY ORDERABLES Performing Organization Address City/State/ZIP Code Phon e Number [place] [phone] HOSPITAL LAB[address]ATORY Drive (ABNORMAL) Hemogram (05/16/2022 3:01 AM EDT) Analysis Performed At Patho logist Time Signature WBC 11.6 (H) 4.0 - 9.5 [facility] x10(3)/[facility] LABORATORY RBC 3.62 (L) 4.58 - [place] 5.54 [facility] x10(6)/[facility] LABORATORY Hemoglobin 12.0 (L) 13.7 - [place] 16.5 g/dL [facility] Hematocrit 35.3 (L) 40.5 - [place] 48.5 % [facility] MCV 97.5 (H) 82.9 - [facility] LABORATORY MCH 33.1 (H) 27.5 - [place] 32.1 pg [facility] MCHC 34.0 32.0 - [place] 35.7 g/dL [facility] Platelets 151 145 - 357 [facility] x10(3)/[facility] RDWSD 47.6 (H) 36.0 - [place] 45.0 [facility] RDWCV 13.3 11.4 - [place] 13.8 % [facility] MPV 10.5 7.6 - 12.9 [facility] LABORATORY nRBC % Auto 0.0 % [facility] LABORATORY nRBC Abs Auto 0.000 0.000 - [facility] 0.000 [facility] x10(3)/[facility] LABORATORY Specimen Anatomical Collection Method Collection Time Receive d Time (Source) Location / / Volume Laterality Blood 05/16/2022 3:01 AM 2 3:36 EDT AM EDT Resulting Agency Comment Spec In Lab Erin Garza MD HEMATOLOGY ORDERABLES Performing Organization Address City/State/ZIP Code Phon e Number [address] Phosphorus (05/16/2022 3:01 AM EDT) P athologist Signature Phosphorus 3.7 2.5 - 4.5 [facility] mg/dL [facility] Specimen Anatomical Collection Method Collection Time Receive d Time (Source) Location / / Volume Laterality Blood 05/16/2022 3:01 AM 2 3:36 EDT AM EDT Resulting Agency Comment Spec In Lab Fito Summers MD CHEMISTRY ORDERABLES Performing Organization Address City/State/ZIP Code Phon e Number [address] Magnesium (05/16/2022 3:01 AM EDT) P athologist Signature Magnesium 0.77 0.69 - 1.07 [facility] mmol/L [facility] Specimen Anatomical Collection Method Collection Time Receive d Time (Source) Location / / Volume Laterality Blood 05/16/2022 3:01 AM 2 3:36 EDT AM EDT Resulting Agency Comment Spec In Lab Fito Summers MD CHEMISTRY ORDERABLES Performing Organization Address City/[facility]/ZIP Code Phon e Number [address] (ABNORMAL) Basic Metabolic Panel (non-fasting) (05/16/2022 3:01 AM EDT) P athologist Signature Glucose Lvl 222 (H) 65 - 199 [facility] mg/dL [facility] Comment: Diabetes: >=200 mg/dL plus symp toms BUN 12 10 - 20 mg/dL [facility] LABORATORY Creatinine 0.66 (L) 0.80 - 1.50 mg/dL [facility] LABORATORY Sodium 138 135 - 145 mmol/L [facility] LABORATORY Potassium 4.5 3.5 - 5.0 mmol/L [facility] LABORATORY Comment: Please note: ??Patients with WBC >100,00 0 may have falsely elevated Potassium levels. ??For accurate Potassium quantif ication in these patients send serum separator tube (gold top) for subsequent determinations. ??Contact the Clinical Chemistry Laboratory if there are any qu estions. Chloride 108 (H) 98 - 107 mmol/L [facility] LABORATORY CO2 22 22 - 31 mmol/L [facility]OR[facility] Anion Gap 8 5 - 15 mmol/L [facility] LABORATORY Calcium 8.2 (L) 8.5 - 10.5 mg/dL [facility] LABORATORY Estimated GFR 95 >=60 mL/min/1.73 m?? [facility]OR[facility]ORY Comment: This patient's estimated [...] Organization Address City/State/[place] [address] (ABNORMAL) BLOOD GAS 2 ARTERIAL (05/15/2022 3:33 PM EDT) Analysis Performed At Patho logist Time Signature pH Art 7.33 (L) 7.35 - [facility] 7.45 [facility] pCO2 Art 41 35 - 45 [facility] mmHg [facility] pO2 Art 131 (H) 85 - 104 [facility] LABORATORY HCO3 Art 21.1 20.0 - [facility] 26.0 [facility] mmol/L [facility] LABORATORY BE Art -4.8 (L) -3.0 - 3.0 [facility] mmol/L [facility] Hgb Blood Gas 13.4 (L) 13.7 - [facility] 16.5 g/dL [facility] O2HB Art 96.9 94.0 - [facility] 97.0 % [facility] COHB Art 1.4 % [facility] LABORATORY Comment: Nonsmokers: 0.5-1.5% COHB Smokers: Variable, but usually less than 10% Toxic: 20-30% COHB Lethal: Greater than 60% COHB METHB Art 0.3 <=1.5 % [facility] LABORAT[facility] Na Whole Blood 139 135 - 145 mmol/L [facility] K Whole Blood 3.8 3.5 - 5.0 mmol/L [facility] LABOR[facility] Comment: Please note: Patients with WBC >100,000 may have falsely elevated Potassium levels. Contact the Clinical Chemistry L aboratory if there are any questions. ICa Whole Blood 1.32 1.15 - 1.33 mmol/L [facility] LABORATORY Comment: Note: ??Total bilirubin [...] Organization Address City/State/[place] [address] (ABNORMAL) BLOOD GAS 2 ARTERIAL (05/15/2022 2:06 PM EDT) Analysis Performed At Patho logist Time Signature pH Art 7.39 7.35 - [facility] 7.45 [facility] pCO2 Art 35 35 - 45 [facility] mmHg [facility] pO2 Art 135 (H) 85 - 104 [facility] LABORATORY HCO3 Art 20.8 20.0 - [facility] 26.0 [facility] mmol/L [facility] LABORATORY BE Art -4.2 (L) -3.0 - 3.0 [facility] mmol/L [facility] Hgb Blood Gas 14.5 13.7 - [facility] 16.5 g/dL [facility] O2HB Art 97.2 (H) 94.0 - [facility] 97.0 % [facility] COHB Art 1.2 % [facility] Comment: Nonsmokers: 0.5-1.5% COHB Smokers: Variable, but usually less than 10% Toxic: 20-30% COHB Lethal: Greater than 60% COHB METHB Art 0.3 <=1.5 % [facility] Na Whole Blood 140 135 - 145 mmol/L [facility] K Whole Blood 3.8 3.5 - 5.0 mmol/L [facility] Comment: Please note: Patients with WBC >100,000 may have falsely elevated Potassium levels. Contact the Clinical Chemistry L aboratory if there are any questions. ICa Whole Blood 1.12 (L) 1.15 - 1.33 mmol/L [facility] LABORATORY Comment: Note: ??Total bilirubin [...] Torre MD CHEMISTRY ORDERABLES Performing Organization Address City/[facility]/ZIP [place] [address] (ABNORMAL) Prothrombin Time (05/15/2022 12:30 PM EDT) P athologist Signature PT 12.9 (H) 9.4 - 12.5 [facility] LABORATORY INR 1.1 [facility] LABOR[facility]ORY Comment: An INR [...] Morales DO HEMATOLOGY ORDERABLES Performing Organization Address City/[facility]/ZIP [facility] [place] [address] (ABNORMAL) APTT (05/15/2022 12:30 PM EDT) P athologist Signature PTT 76 (H) 25 - 37 sec [facility] LABORATORY Comment: The PTT is [...] Address City/State/ZIP [place] [address] Gold Tube HOLD (05/15/2022 12:20 PM EDT) P athologist Signature Gold Hold Sample in [facility]. [facility] Specimen Anatomical Collection Method Collection Time Receive d Time (Source) Location / / Volume Laterality Blood No Charge / 05/15/2022 12:20 05/15/2022 Unknown PM EDT 12:20 PM EDT Lc Tan Kimberly TRIPP CHEMISTRY ORDERABLES Performing Organization Address City/[facility]/ZIP [place] [address] Type and Screen Validity (05/15/2022 12:00 PM EDT) [facility] gist Method Time Signature T&S only [...] PA BLOOD BANK ORDERABLES Performing Organization Address City/[facility]/ZIP Code Phon e Number [address] ABORH Recheck Status (05/15/2022 12:00 PM EDT) [facility] gist Method Time Signature ABORH Recheck Order Placed [facility] K Order [facility] ABORH Type Complete [facility] LABORATORY Specimen Anatomical Collection Method Collection Time Receive d Time (Source) Location / / Volume Laterality Blood 05/15/2022 12:00 05/15/2022 PM EDT 12:17 PM EDT Resulting Agency Comment Spec In Lab Lc Tan Kimberly PA BLOOD BANK ORDERABLES Performing Organization Address City/State/ZIP [place] [address] CK (05/15/2022 12:00 PM EDT) P athologist Signature CK, Total 87 0 - 200 [facility] unit/L [facility] Specimen Anatomical Collection Method Collection Time Receive d Time (Source) Location / / Volume Laterality Blood Venous Draw / 05/15/2022 12:00 05/15/2022 Unknown PM EDT 12:19 PM EDT Resulting Agency Comment Spec In Lab Fito Summers MD CHEMISTRY ORDERABLES Performing Organization Address City/State/ZIP [place] [address] Antibody screen (05/15/2022 12:00 PM EDT) [facility] Method Time Signature Ab Screen Negative [facility] LABORATORY Expires at 05/18/2022 [facility] [id number] on: [facility] Specimen Anatomical Collection Method Collection Time Receive d Time (Source) Location / / Volume Laterality Blood 05/15/2022 12:00 05/15/2022 PM EDT 12:17 PM EDT Resulting Agency Comment Spec In Lab Lc TRIPP BLOOD BANK ORDERABLES Performing Organization Address City/[facility]/ZIP Code Phon e Number [address] ABO/Rh Typing (05/15/2022 12:00 PM EDT) athologist Signature ABORh Type O Pos [facility] LABORATORY Specimen Anatomical Collection Method Collection Time Receive d Time (Source) Location / / Volume Laterality Blood 05/15/2022 12:00 05/15/2022 PM EDT 12:17 PM EDT Resulting Agency Comment Spec In Lab Lc TRIPP BLOOD BANK ORDERABLES Performing Organization Address City/[facility]/ZIP [place] [address] (ABNORMAL) Differential, Automated (05/15/2022 12:00 PM EDT) [facility] Method Time Signature Neutrophils % 79.4 % [facility]ORATORY Neutr Abs (ANC) 7.49 (H) 1.70 - [facility] 6.10 [facility] x10(3)/[facility] L LABORATORY Lymphocytes % 11.3 % [facility]ORATORY Lymphocytes Abs 1.1 0.9 - 3.2 [facility] x10(3)/[facility] LABORATORY Monocytes % 7.8 % [facility]ATORY Monocyte Abs 0.7 0.3 - 0.9 [facility] x10(3)/[facility] LABORATORY Eosinophils % 0.6 % [facility] Eosinophils Abs 0.1 0.0 - 0.4 [facility] x10(3)/[facility] LABORATORY Basophils % 0.6 % [facility] Basophils Abs 0.1 0.0 - 0.1 [facility] x10(3)/[facility] LABORATORY Immature Gran % 0.30 % [facility] Comment: Immature granulocytes(IG's)percentage an d absolute count will include metamyelocytes, myelocytes, and promyelo cytes. Blood smears from CBCs yielding IG's will be scanned manually for concor dance. If this scan disagrees with the automated IG or if promyelocytes are not ed, a manual differential will be performed. Rain Gran Abs 0.03 0.00 - 0.04 x10(3)/[facility] LABORATORY Specimen Anatomical Collection Method Collection Time Receive d Time (Source) Location / / Volume Laterality Blood 05/15/2022 12:00 05/15/2022 PM EDT 12:19 PM EDT Resulting Agency Comment Spec In Lab Lc TRIPP HEMATOLOGY ORDERABLES Performing Organization Address City/State/[place] [address] (ABNORMAL) Hemogram (05/15/2022 12:00 PM EDT) Analysis Performed At Patho logist Time Signature WBC 9.4 4.0 - 9.5 [facility] x10(3)/[facility] LABORATORY RBC 4.48 (L) 4.58 - [facility] 5.54 [facility] x10(6)/[facility] LABORATORY Hemoglobin 14.5 13.7 - [place] 16.5 g/dL [facility] Hematocrit 42.4 40.5 - [place] 48.5 % [facility] MCV 94.6 (H) 82.9 - [place] 93.[address] [facility] LABORATORY MCH 32.4 (H) 27.5 - [place] 32.1 pg [facility] MCHC 34.2 32.0 - [place] [place] 35.7 g/dL [facility] Platelets 209 145 - 357 [facility] x10(3)/[facility] LABORATORY RDWSD 45.9 (H) 36.0 - [place] [address] [facility] LABORATORY RDWCV 13.1 11.4 - [place] 13.8 % [facility] MPV 10.5 7.6 - 12.9 [facility] LABORATORY nRBC % Auto 0.0 % [facility] LABORATORY nRBC Abs Auto 0.000 0.000 - [facility] 0.000 [facility] x10(3)/[facility] LABORATORY Specimen Anatomical Collection Method Collection Time Receive d Time (Source) Location / / Volume Laterality Blood 05/15/2022 12:00 05/15/2022 PM EDT 12:19 PM EDT Resulting Agency Comment Spec In Lab Lc TRIPP HEMATOLOGY ORDERABLES Performing Organization Address City/State/[place] [address] (ABNORMAL) Basic Metabolic Panel (non-fasting) (05/15/2022 12:00 PM EDT) P athologist Signature Glucose Lvl 203 (H) 65 - 199 [facility] mg/dL [facility] Comment: Diabetes: >=200 mg/dL plus symp toms BUN 16 10 - 20 mg/dL [facility] LABORATORY Creatinine 0.84 0.80 - 1.50 mg/dL [facility] LABORATORY Sodium 141 135 - 145 mmol/L [facility] LABORATORY Potassium 4.7 3.5 - 5.0 mmol/L [facility] LABORATORY Comment: Please note: ??Patients with WBC >100,00 0 may have falsely elevated Potassium levels. ??For accurate Potassium quantif ication in these patients send serum separator tube (gold top) for subsequent determinations. ??Contact the Clinical Chemistry Laboratory if there are any qu estions. Chloride 107 98 - 107 mmol/L [facility]ORY CO2 23 22 - 31 mmol/L [facility] Anion Gap 11 5 - 15 mmol/L [facility] LABORATORY Calcium 8.5 8.5 - 10.5 mg/dL [facility] LABORATORY Estimated GFR 89 >=60 mL/min/1.73 m?? [facility] Comment: This patient's estimated [...] Organization Address City/State/[place] [address] documented in this encounter [...] mg = 1.8 mg/kg/dose ? 67.7 kg [place] weight), Intravenous, at 11.3 mL/hr, EVERY 3 [...] mg = 2.4 mg/kg/dose ? 67.7 kg [place] weight), Intravenous, at 15 mL/hr, ONCE, 1 [...] mg = 0.24 mg/kg/dose ? 67.7 kg [place] weight), Oral, 2 TIMES DAILY, 2 doses, [...] mg = 0.48 mg/kg/dose ? 67.7 kg [place] weight), Oral, 2 TIMES DAILY, 2 doses, [...] mg = 0.12 mg/kg/dose ? 67.7 kg [place] weight), Oral, 2 TIMES DAILY, 2 doses, First dose on [facility] 05/18/22 at 0900, Last dose on [facility] 05/18/22 at 2100, Hold for RASS [...] ([facility] Unhold - Provider: Admin Adt)2005 (Given - [...] [facility] Un[facility] - Provider: Admin Adt) 218 (Restarted [...] [facility] Unhold - Provider: Admin Adt) 650 mg, [...] bisacodyL (Dulcolax) suppository 10 mg 1 751 ([facility] Hold - Provider: Admin Adt - Reason: Transfer to a Procedural area)1955 ([facility] Unhold - Provider: Admin Adt) 10 mg, [...] midazolam (pf) (Versed) (1 mg/mL) multi-dose injection ([facility]) 1713 (Given - Provider: Abundio Servin [...]
Routine documented in this encounter Care Teams Director Of Publications Relationship Specialty Start Date End Date Bobby Das MD PCP - General 10/02/[address] [place] [address] [place] [phone] documented as of this encounter
--- OUTSIDE RECORDS SUMMARY | 2022-07-19 13:20 | XMS_ITS | Encounter Summary ---
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 Chano Rebolledo MD [facility] Thor[facility] Surg [address] [place] [address] [place] [address] [place] [address] Phone: Fax: Referral ID Status Reason Start Date Expiration Date Visits V isits Requested Authorized [id number] Denied Consult, 12/18/2016 12/18/2017 1 0 Test & Treat Encounter Details Date Type Department Care Team Description 12/18/2016 Telephone Pain Management at Chano Freitas MD [facility] [place] [address] PAIN CLINIC [phone] [place], [place] [address] (Wo rk) Social History Tobacco [...] I will make a heme/oncology consultation with [facility] for the patient in the meantime. documented in this encounter Plan of Treatment Upcoming Encounters Date Type Specialty Care Team Description 08/08/2022 Office Visit Gastroenterology Negra Collins MD [facility] GASTROENTEROLOGY DEPT [place], [place] [address] (Wo rk) 09/05/2022 Appointment Cardiology Trinity Reid MD [facility] CARDIOLOGY [place], [place] [address] (Wo rk) 09/05/2022 Office Visit Cardiology Trinity Reid MD [facility] CARDIOLOGY [place], [place] [address] (Wo rk) Scheduled Referrals Name Type Priority Associated Diagnoses Order S chedule Referral to Outpatient Referral Routine Neoplasm of Ordered: Hematology and uncertain behavior 017 Oncology of respiratory organ documented as of this encounter Visit Diagnoses Diagnosis 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
--- OUTSIDE RECORDS SUMMARY | 2022-07-19 13:20 | XMS_ITS | Encounter Summary ---
:1940 [place] [address] Care Team Providers Name Role Phone Bobby Das MD Primary Care Provider Encounter Details Date Type Department Care Team Description 10/13/2020 Notes Only Radiology at [facility] Alphonso Esquivel [place] [address] DIAGNOSTIC RADIOLOGY [phone] [place] [id number] (Wo rk) Social History Tobacco Use Types [...] Collins MD [facility] GASTROENTEROLOGY DEPT [place], [place] 0[address] (Wo rk) 09/05/2022 Appointment Cardiology Trinity Reid MD [facility] CARDIOLOGY [place], [place] [address] (Wo rk) 09/05/2022 Office Visit Cardiology Trinity Reid MD [facility] CARDIOLOGY [place], [place] [address] (Wo rk) documented as of this encounter Visit Diagnoses Not on filedocumented in this encounter Care Teams Smoke Control Supervisor Relationship Specialty Start Date End Date Bobby Das MD PCP - General 10/02/[address] [place] [address] [place] [phone] documented as of this encounter
--- OUTSIDE RECORDS SUMMARY | 2022-07-19 13:20 | XMS_ITS | Encounter Summary ---
:1940 Author Organization [facility] Address [facility] [place] [address] Care Team Providers Name Role Phone Bobby Das MD Primary Care Provider Reason for Visit - Closed Specialty Diagnoses / Procedures Referred By Contact Refer red To Contact Procedures Bobby Das MD Film Library- Storage Only MR Her[facility] [place] [address] Referral ID Status Reason Start Date Expiration Date Visits Requ ested Visits Authorized [id number] Closed 02/23/2021 02/23/2022 1 1 Encounter Details Date Type Department Care Team Description 03/16/2020 Ancillary Procedure Radiology Library at Bobby Almaguer MD [address] [phone] (Rebekah rojas) Social History Tobacco Use Types [...] Collins MD [facility] GASTROENTEROLOGY DEPT [place], [place] [address] (Wo rk) 09/05/2022 Appointment Cardiology Trinity Reid MD [facility] CARDIOLOGY [place], [place] [address] (Wo rk) 09/05/2022 Office Visit Cardiology Trinity Reid MD [facility] ER CARDIOLOGY [place], [place] 0[address] (Wo rk) documented as of [...] Organization Address City/State/ZIP Code Phon e Number [place], [place] documented in this encounter Visit Diagnoses Not on filedocumented in this encounter Care Teams Demand Planning Manager Relationship Specialty Start Date End Date Bobby Das MD PCP - General 10/02/[address] [place] [address] [place] [phone] documented as of this encounter
--- OUTSIDE RECORDS SUMMARY | 2022-07-19 13:20 | XMS_ITS | Encounter Summary ---
:1940 Author Organization [facility] [place] [address] Care Team Providers Name Role Phone Bobby Das MD Primary Care Provider Encounter Details Date Type Department Care Team Description 08/06/2020 Ancillary Procedure Radiology at [facility] Amy Grimaldo [address] [place] [address] [address] [phone] NEUROSURGERY-N [place], [place] [address] Social History Tobacco Use Types [...] Negra Collins MD [facility] GASTROENTEROLOGY DEPT [place], [place] [address] (Wo rk) 09/05/2022 Appointment Cardiology Trinity Reid MD [facility] CARDIOLOGY [place], [place] 0375 (Wo rk) 09/05/2022 Office Visit Cardiology Trinity Reid MD [facility] CARDIOLOGY [place], [place] [address] (Wo rk) documented as of [...] Organization Address City/State/ZIP Code Phon e Number [place], [place] documented in this encounter Visit Diagnoses Not on filedocumented in this encounter Care Teams Rubber Gasket Inspector Trimmer Relationship Specialty Start Date End Date Bobby Das MD PCP - General 10/02/[address] [place] [address] [place] [phone] documented as of this encounter
--- OUTSIDE RECORDS SUMMARY | 2022-07-19 13:20 | XMS_ITS | Encounter Summary ---
:1940 Author Organization [facility] [place] [address] Care Team Providers Name Role Phone Bobby Das MD Primary Care Provider Reason for Visit Reason Comments Basal Cell Carcinoma Encounter Details Date Type Department Care Team Description 08/08/2015 [facility] (basal cell Road MD carcinoma of skin) [address] [place] [address] [facility] [place], [place] [address] Social History Tobacco Use Types [...] Our facility does not offer a guest [employer] network at this time. We also recommend [...] specified we require that you have a taxicab driver, as surgery can be stressful and tiring. If you are being transported from a snf or other similar facility, we request that someone stay with you during this appointment. We are located in the [facility] [place], [place]. Please refer to the [facility] website for detailed driving directions ([email or web address]). When you arrive, please park in the upper parking lot. When you enter the building, go to the third floor, the sales representative electric service area is located on the left (follow [...] If this fails, contact our office at [phone] (after 5PM please call [phone] and ask for the Sort Line Worker temperature control inspector). Avoid bending over, heavy lifting (no greater [...] are taking. Our office phone number is [phone]. documented in this encounter Progress Notes Leo Solo MD - 08/08/2015 1:50 PM EDT MOHS SURGICAL CONSULT Chief Complaint: Basal cell carcinoma History of Present Illness: Referring Physician: Dr. Zheng, [facility] (07/03/15) Tumor type: BCC Location of Skin Cancer: Right holiness Duration of Presence: 1 year Previous Treatment: [...] acute distress. Skin: Limited examination of right holiness reveals a 5 mm erythematous papule. Assessment and Plan 1. BCC, right holiness Reviewed treament options including wide local excision, [...] [facility] DR GASTROENTEROLOGY DEPT [place], [place] [address] (Wo rk) 09/05/2022 Appointment Cardiology Trinity Reid MD [facility] CARDIOLOGY [place], [place] [address] (Wo rk) 09/05/2022 Office Visit Cardiology Trinity Reid MD [facility] CARDIOLOGY [place], [place] [address] (Wo rk) documented as of this encounter Visit Diagnoses Diagnosis BCC (basal cell carcinoma of skin) Basal cell carcinoma of skin, site unspe cified documented in this encounter Care Teams Shed Workers Supervisor Relationship Specialty Start Date End Date Bobby Das MD PCP - General 10/02/[address] [place] [address] [place] [phone] documented as of this encounter
--- OUTSIDE RECORDS SUMMARY | 2022-07-19 13:20 | XMS_ITS | Encounter Summary ---
:1940 [place] [address] Care Team Providers Name Role Phone Bobby Das MD Primary Care Provider Encounter Details Date Type Department Care Team Description 07/13/2019 Orders Only Radiology Alan Brink Gastrointestinal [facility] MD [place] hemorrhage, unspecified [facility] DR hemorrhage type (Primary [id number] RADIOLOGY DEPT Dx) [phone] [place], [place] [address] Social History Tobacco Use Types [...] file Gets together: Not on file Attends hoahaoism service: Not on file Active member of [...] MD [facility] GASTROENTEROLOGY DEPT [place], [place] [address] (Wo rk) 09/05/2022 Appointment Cardiology Trinity Reid MD [facility] CARDIOLOGY [place], [place] [address] (Wo rk) 09/05/2022 Office Visit Cardiology Trinity Reid MD [facility] CARDIOLOGY [place], [place] [address] (Wo rk) documented as of this encounter Results Prothrombin Time (07/20/2019 8:18 AM EDT) P athologist Signature PT 11.3 9.4 - 12.5 [facility] INR 1.0 [facility] LABORATORY [...] Organization Address City/State/[place] [address] (ABNORMAL) Hemogram (07/20/2019 8:18 AM EDT) Analysis Performed At Patho logist Time Signature WBC 6.0 4.0 - 9.5 [facility] x10(3)/[facility] LABORATORY RBC 4.50 (L) 4.58 - [place] [place] 5.54 [facility] x10(6)/[facility] LABORATORY Hemoglobin 14.8 13.7 - [facility] 16.5 gm/dL [facility] LABORATORY Hematocrit 43.9 40.5 - [facility] 48.5 % [facility] LABORATORY MCV 97.6 (H) 82.9 - [facility] 93.1 fL [facility] LABORATORY MCH 32.9 (H) 27.5 - [facility] 32.1 pg [facility] LABORATORY MCHC 33.7 32.0 - [facility] 35.7 gm/dL [facility] LABORATORY Platelets 164 145 - 357 [facility] x10(3)/[facility] LABORATORY RDWSD 49.3 (H) 36.0 - [facility] 45.0 [facility] LABORATORY RDWCV 13.6 11.4 - [facility] 13.8 % [facility] LABORATORY MPV 10.0 7.6 - 12.9 [facility] LABORATORY nRBC % Auto 0.0 % [facility] LABORATORY nRBC Abs Auto 0.000 0.000 - [facility] 0.000 [facility] x10(3)/[facility] LABORATORY Specimen Anatomical Collection Method Collection Time Receive d Time (Source) Location / / Volume Laterality Blood specimen 07/20/2019 8:18 AM 019 8:21 (specimen) EDT AM EDT Resulting Agency Comment Spec In Lab Bobby Marshall MD HEMATOLOGY ORDERABLES Performing Organization Address City/State/[place] [address] documented in this encounter Visit Diagnoses Diagnosis Gastrointestinal hemorrhage, unspecified gastrointestinal hemorrhage type - Primary documented in this encounter Care Teams Senior Research Scientist Relationship Specialty Start Date End Date Bobby Das MD PCP - General 10/02/[address] [place] [address] [place] [phone] documented as of this encounter
--- OUTSIDE RECORDS SUMMARY | 2022-07-19 13:20 | XMS_ITS | Encounter Summary ---
:1940 Author Organization [facility] [place] [address] Care Team Providers Name Role Phone Bobby Das MD Primary Care Provider Encounter Details Date Type Department Care Team Description 12/13/2016 Telephone Pain Management [place] [address] Social History Tobacco Use Types Packs/Day [...] MD [facility] DR GASTROENTEROLOGY DEPT [place], [place] [address] (Wo rk) 09/05/2022 Appointment Cardiology Trinity Reid MD [facility] CARDIOLOGY [place], [place] [address] (Wo rk) 09/05/2022 Office Visit Cardiology Trinity Reid MD [facility] CARDIOLOGY [place], [place] [address] (Wo rk) documented as of this encounter Visit Diagnoses Not on filedocumented in this encounter Care Teams Flight Follower Relationship Specialty Start Date End Date Bobby Das MD PCP - General 10/02/[address] [place] [address] [place] [phone] documented as of this encounter
--- OUTSIDE RECORDS SUMMARY | 2022-07-19 13:20 | XMS_ITS | Encounter Summary ---
:1940 Author Organization [facility] [place] [address] Care Team Providers Name Role Phone Bobby Das MD Primary Care Provider Encounter Details Date Type Department Care Team Description 08/28/2020 Ancillary Procedure Radiology at [facility] Amy Grimaldo [address] [place] [address] [address] [phone] NEUROSURGERY-N [place], [place] [address] Social History Tobacco Use Types [...] MD [facility] GASTROENTEROLOGY DEPT [place], [place] [address] (Wo rk) 09/05/2022 Appointment Cardiology Trinity Reid MD [facility] CARDIOLOGY [place], [place] 0[address] (Wo rk) 09/05/2022 Office Visit Cardiology Trinity Reid MD [facility] CARDIOLOGY [place], [place] [address] (Wo rk) documented as of [...] Address City/State/ZIP Code Phon e Number [place], [place] documented in this encounter Visit Diagnoses Not on filedocumented in this encounter Care Teams Head Girls Golf Coach Relationship Specialty Start Date End Date Bobby Das MD PCP - General 10/02/[address] [place] [address] [place] [phone] documented as of this encounter
--- OUTSIDE RECORDS SUMMARY | 2022-07-19 13:20 | XMS_ITS | Encounter Summary ---
:1940 Author Organization [facility] [place] [address] Care Team Providers Name Role Phone Bobby Das MD Primary Care Provider Encounter Details Date Type Department Care Team Description 07/26/2015 External Results Medical Records Provider, [facility] [place] [address] Social History Tobacco Use Types Packs/Day Years Used Date Current Some Day Smoker 1 50 Smokeless Tobacco: Never Used Sex Assigned at Date Recorded Not on file documented as of this encounter Plan of Treatment Upcoming Encounters Date Type Specialty Care Team Description 08/08/2022 Office Visit Gastroenterology Negra Collins MD [facility] GASTROENTEROLOGY DEPT [place], [place] [address] (Wo rk) 09/05/2022 Appointment Cardiology Trinity Reid MD [facility] CARDIOLOGY [place], [place] [address] (Wo rk) 09/05/2022 Office Visit Cardiology Trinity Reid MD [facility] CARDIOLOGY [place], [place] [address] (Wo rk) documented as of [...] on filedocumented in this encounter Care Teams Toll Line Repairer Relationship Specialty Start Date End Date Bobby Das MD PCP - General 10/02/[address] [place] [address] [place] [phone] documented as of this encounter
--- OUTSIDE RECORDS SUMMARY | 2022-07-19 13:20 | XMS_ITS | Encounter Summary ---
:1940 Author Organization [facility] [place] [address] Care Team Providers Name Role Phone Bobby Das MD Primary Care Provider Reason for Visit Reason Comments Suture / Staple Removal Encounter Details Date Type Department Care Team Description 08/31/2015 Clinical Support Dermatology at [facility] Visit for suture Heat Nicol Estrella MD removal [address] [facility] [address] [facility] [phone] RD-DERMATOLOGY [place] [phone] Social History Tobacco Use Types Packs/Day Years Used Date Current Some Day Smoker 1 50 Smokeless Tobacco: Never Used Sex Assigned at Date Recorded Not on file documented as of this encounter Progress Notes Jeni Franco LPN - 08/31/2015 2:47 PM EDT HPI: Patient is a 74 y.o. male with history of basal cell carcinoma, right yarsanism, s/p Mohs repairedby transposition flap repair who is presenting for suture removal. Denies complications. Exam: General: No acute distress Skin: Limited examination of right yarsanism shows a well-healed flap. There is no erythema, dehiscence, ecchymosis, or drainage. Assessment and Plan 1. Basal cell carcinoma, right yarsanism, s/p Mohs repaired by transposition flap repair [...] Collins MD [facility] GASTROENTEROLOGY DEPT [place], [place] [address] (Wo rk) 09/05/2022 Appointment Cardiology Trinity Reid MD [facility] CARDIOLOGY [place], [place] [address] (Wo rk) 09/05/2022 Office Visit Cardiology Trinity Reid MD [facility] CARDIOLOGY [place], [place] [address] (Wo rk) documented as of this encounter Visit Diagnoses Diagnosis Visit for suture removal Encounter for removal of sutures documented in this encounter Care Teams Risk Assessor Relationship Specialty Start Date End Date Bobby Das MD PCP - General 10/02/[address] [place] [address] [place] [phone] documented as of this encounter
--- OUTSIDE RECORDS SUMMARY | 2022-07-19 13:20 | XMS_ITS | Encounter Summary ---
:1940 [place] [address] Care Team Providers Name Role Phone Bobby Das MD Primary Care Provider Encounter Details Date Type Department Care Team Description 02/27/2021 Notes Only Radiology Matt Chisholm MD [facility] [place] [address] DIAGNOSTIC RADIOLOGY [phone] [place] [phone] (Wo rk) Social History Tobacco Use Types [...] Visit Gastroenterology Negra Collins MD [facility] DR GASTROENTEROLOGY DEPT [place], [place] [address] (Wo rk) 09/05/2022 Appointment Cardiology Trinity Reid MD [facility] CARDIOLOGY [place], [place] [address] (Wo rk) 09/05/2022 Office Visit Cardiology Trinity Reid MD [facility] CARDIOLOGY [place], [place] [address] (Wo rk) documented as of this encounter Visit Diagnoses Not on filedocumented in this encounter Care Teams Windows Server Architect Relationship Specialty Start Date End Date Bobby Das MD PCP - General 10/02/[address] [place] [address] [place] [address] documented as of this encounter
--- OUTSIDE RECORDS SUMMARY | 2022-07-19 13:20 | XMS_ITS | Encounter Summary ---
:1940 Author Organization [facility] [place] [address] Care Team Providers Name Role Phone Bobby Das MD Primary Care Provider Encounter Details Date Type Department Care Team Description 05/15/2022 Ancillary Procedure Radiology Library at [facility], Lavell Butt, [facility] [place] [address] VASCULAR SURGERY [phone] [place] [phone] (Wo rk) Social History Tobacco Use Types [...] Gastroenterology Negra Collins MD [facility] DR GASTROENTEROLOGY DEPT [place], [place] [address] (Wo rk) 09/05/2022 Appointment Cardiology Trinity Reid MD [facility] CARDIOLOGY [place], [place] [address] (Wo rk) 09/05/2022 Office Visit Cardiology Trinity Reid MD [facility] CARDIOLOGY [place], [place] [address] (Wo rk) documented as of [...] Organization Address City/State/ZIP Code Phon e Number [place], [place] documented in this encounter Visit Diagnoses Not on filedocumented in this encounter Care Teams Bicycle Service Technician Relationship Specialty Start Date End Date Bobby Das MD PCP - General 10/02/[address] [place] [address] [place] [phone] documented as of this encounter
--- OUTSIDE RECORDS SUMMARY | 2022-07-19 13:20 | XMS_ITS | Encounter Summary ---
:1940 Author Organization [facility] [place] [address] Care Team Providers Name Role Phone Bobby Das MD Primary Care Provider Encounter Details Date Type Department Care Team Description 05/15/2022 Ancillary Procedure Radiology Library at [facility], Lavell Butt, [facility] [place] [address] VASCULAR SURGERY [phone] [place] [phone] (Wo rk) Social History Tobacco Use Types [...] [facility] DR GASTROENTEROLOGY DEPT [place], [place] [address] (Wo rk) 09/05/2022 Appointment Cardiology Trinity Reid MD [facility] CARDIOLOGY [place], [place] [address] (Wo rk) 09/05/2022 Office Visit Cardiology Trinity Reid MD [facility] CARDIOLOGY [place], [place] [address] (Wo rk) documented as of [...] Organization Address City/State/ZIP Code Phon e Number [place], [place] documented in this encounter Visit Diagnoses Not on filedocumented in this encounter Care Teams Audio Visual Production Specialist Relationship Specialty Start Date End Date Bobby Das MD PCP - General 10/02/[address] [place] [address] [place] [phone] documented as of this encounter
--- OUTSIDE RECORDS SUMMARY | 2022-07-19 13:20 | XMS_ITS | Encounter Summary ---
:1940 Author Organization [facility] Address [facility] [place] [address] Care Team Providers Name Role Phone Bobby Das MD Primary Care Provider Reason for Visit - Closed Specialty Diagnoses / Procedures Referred By Contact Refer red To Contact Procedures Bobby Das MD Film Library- Storage Only DX [address] [place] [phone] Referral ID Status Reason Start Date Expiration Date Visits Requ ested Visits Authorized [id number] Closed 04/13/2021 04/13/2022 1 1 Encounter Details Date Type Department Care Team Description 01/31/2021 Ancillary Procedure Radiology Library at Bobby Almaguer MD [address] [phone] [phone] (Rebekah rojas) Social History Tobacco Use Types [...] [facility] DR GASTROENTEROLOGY DEPT [place], [place] [address] (Wo rk) 09/05/2022 Appointment Cardiology Trinity Reid MD [facility] ER CARDIOLOGY [place] [address] (Wo rk) 09/05/2022 Office Visit Cardiology Trinity Reid MD [facility] ER CARDIOLOGY [place] [address] (Wo rk) documented as of this [...] Organization Address City/State/ZIP Code Phon e Number [place], [place] documented in this encounter Visit Diagnoses Not on filedocumented in this encounter Care Teams Oyster Cultivator Relationship Specialty Start Date End Date Bobby Das MD PCP - General 10/02/[address] [place] [address] [place] [phone] documented as of this encounter
--- OUTSIDE RECORDS SUMMARY | 2022-07-19 13:20 | XMS_ITS | Encounter Summary ---
:1940 Author Organization [facility] [address] Care Team Providers Name Role Phone Bobby Das MD Primary Care Provider Reason for Visit Reason Onset Date Comments Pre Procedure Call 08/01/2015 Encounter Details Date Type Department Care Team Description 08/01/2015 Telephone Dermatology at [facility] Cassy Jacobson, Pre Procedure Call [address] [place] [address] Social History Tobacco Use Types Packs/Day [...] [facility] GASTROENTEROLOGY DEPT [place], [place] [address] (Wo rk) 09/05/2022 Appointment Cardiology Trinity Reid MD [facility] CARDIOLOGY [place], [place] [address] (Wo rk) 09/05/2022 Office Visit Cardiology Trinity Reid MD [facility] CARDIOLOGY [place], [place] [address] (Wo rk) documented as of this encounter Visit Diagnoses Not on filedocumented in this encounter Care Teams Commercial Teller Relationship Specialty Start Date End Date Bobby Das MD PCP - General 10/02/[address] [place] [address] [place] [address] documented as of this encounter
--- OUTSIDE RECORDS SUMMARY | 2022-07-19 13:20 | XMS_ITS | Encounter Summary ---
:1940 Author Organization [place] [address] Care Team Providers Name Role Phone Bobby Das MD Primary Care Provider Reason for Referral Diagnostic Test (Routine) - Closed Specialty Diagnoses / Procedures Referred By Contact Refer red To Contact Radiology Diagnoses Compression fracture of T9 vertebra, initial encounter Alphonso Esquivel DO [facility] Interventionl Rad Procedures IR Vertebroplasty Thoracic [facility] [place] [address] [place] [address] Referral ID Status Reason Start Date Expiration Date Visits V isits Requested Authorized [id number] Closed Specialty 10/13/2020 04/13/2022 1 1 Service Requested Reason for Visit Diagnostic Test (Routine) - Closed Specialty Diagnoses / Procedures Referred By Contact Refer red To Contact Radiology Diagnoses Compression fracture of T9 vertebra, initial encounter Alphonso Esquivel DO [facility] Interventionl Rad Procedures IR Vertebroplasty Thoracic [facility] [place] [address] [place] [address] Referral ID Status Reason Start Date Expiration Date Visits V isits Requested Authorized [id number] Closed Specialty 10/13/2020 04/13/2022 1 1 Service Requested Encounter Details Date Type Department Care Team Description 10/25/2020 Hospital Encounter Radiology at [facility] Esquivel, Alphonso R, Compression [facility] DO of T9 vertebra, Drive [facility] initial encounter [place], [place] CENTER [address] DIAGNOSTIC [phone] [place] [address] Social History Tobacco Use Types Packs/Day Years [...] Vargas RN - 10/25/2020 9:13 AM EST [facility] Discharge Instructions for Vertebroplasty Your vertebroplasty was [...] is during regular office hours, please call [phone]. If it is after regular office hours, oron weekends or holidays, please call [phone] and ask to speak to the Therapeutic Massage Technician on callfor Interventional Radiology. XXX You have [...] of : 1940 AGE: 80 y.o. Address: [address] [place] [phone] (home) Mobile: No relevant phone numbers on [...] MD [facility] GASTROENTEROLOGY DEPT [place], [place] [address] (Wo rk) 09/05/2022 Appointment Cardiology Trinity Reid MD [facility] CARDIOLOGY [place], [place] [address] (Wo rk) 09/05/2022 Office Visit Cardiology Trinity Reid MD [facility] CARDIOLOGY [place], [place] [address] (Wo rk) documented as of [...] made and a 13g a introducer needle ([facility]) was advanced through the right pedicle and t o the ??T9 vertebral body during an intermittent fluoroscopic guidance. The [facility] biopsy cannula was advanced through the introducer [...] was made and a 13ga introducer needle (Carmudi) was advanced through the left pedicle and [...] the interservice administration of fentanyl and Versed [facility] continuous monitoring of blood pressure, oxygenation and [...] made and a 13g a introducer needle ([facility]) was advanced through the right pedicle and t o the T9 vertebral body during an intermittent fluoroscopic guidance. The [place] biopsy cannula was advanced through the introducer [...] was made and a 13ga introducer needle (Carmudi) was advanced through the left pedicle and [...] Test Analysis Performed At [facility] Method Time Signature Surgical [id number] ? Location: [address] [place] [address] Pathology COATS Report The signing pathologist has (i) examined [...] Bone & Soft Tissue Pathologist Performed at: ??-[facility] Dept. of Pathology, [place], [place] DISCUSSION I see no neoplastic process [...] DO PATHOLOGY/CYTOLOGY ORDERABLE S Performing Organization Address City/[facility]/[place] [address] Specimen to Pathology (10/25/2020 8:26 AM EST) Specimen Anatomical Collection Method Collection Time Receive d Time (Source) Location / / Volume Laterality AP Specimen 10/25/2020 8:26 AM 0 8:26 EST AM EST Narrative [facility] - 10/25/2020 8:26 AM EST Specimen requisition ordered. ??Separate Pathology report to follow Alphonso Esquivel DO PATHOLOGY/CYTOLOGY ORDERABLE S Performing Organization Address City/[facility] Code Phon e Number [address] documented in this encounter [...] Procedure) documented in this encounter Care Teams Wash Mill Operator Relationship Specialty Start Date End Date Bobby Das MD PCP - General 10/02/[address] [place] [address] [place] [address] documented as of this encounter
--- OUTSIDE RECORDS SUMMARY | 2022-07-19 13:20 | XMS_ITS | Encounter Summary ---
:1940 Author Organization [facility] [place] [address] Care Team Providers Name Role Phone Bobby Das MD Primary Care Provider Encounter Details Date Type Department Care Team Description 09/18/2018 Telephone Dermatology at [facility] Yolanda Fraser RN [address] [place] [address] Social History Tobacco Use Types Packs/Day [...] Who lives with patient (i.e. spouse, children, assisted/care home)? Spouse Relevant travel history or future [...] MD [facility] GASTROENTEROLOGY DEPT [place], [place] [address] (Wo rk) 09/05/2022 Appointment Cardiology Trinity Reid MD [facility] CARDIOLOGY [place], [place] [address] (Wo rk) 09/05/2022 Office Visit Cardiology Trinity Reid MD [facility] CARDIOLOGY [place], [place] [address] (Wo rk) documented as of this encounter Visit Diagnoses Not on filedocumented in this encounter Care Teams Surveying Crew Rodman Relationship Specialty Start Date End Date Bobby Das MD PCP - General 10/02/[address] [place] [address] [place] [phone] documented as of this encounter
--- OUTSIDE RECORDS SUMMARY | 2022-07-19 13:20 | XMS_ITS | Encounter Summary ---
:1940 Author Organization [facility] [place] [address] Care Team Providers Name Role Phone Bobby Das MD Primary Care Provider Reason for Referral Consultation (Routine) - Closed Specialty Diagnoses / Procedures Referred By Contact Refer red To Contact Neurology Diagnoses Low back pain, non-specific Status post vertebroplasty Transient left leg weakness EMG Arpita Whitney APRN [facility] Neurology [address] [place], [place] [address] [place] [phone] Fax: Referral ID Status Reason Start Date Expiration Date Visits V isits Requested Authorized [id number] Closed Consult, 04/17/2021 04/17/2022 1 1 Test & Treat hysical Therapy (Routine) - Specialty Diagnoses / Procedures Referred By Contact Refer red To Contact Diagnoses Low back pain, non-specific Status post vertebroplasty [place] [address] Referral ID Status Reason Start Date Expiration Date Visits V isits Requested Authorized [id number] Evaluate and 04/17/2021 10/14/2021 12 12 Treat Reason for Visit Reason Comments Back Pain new patient visit Consultation (Routine) - Closed Specialty Diagnoses / Procedures Referred By Contact Refer red To Contact [facility] Diagnoses Low back pain Pain - Low back pain/ MRI 02/20/21 & XR 01/31/21 @ [facility] Bobby Das MD [facility] Ctr Pain And [address] [place], [place] Drive [address] [place] [address] Phone: Fax: Referral ID Status Reason Start Date Expiration Date Visits Requ ested Visits Authorized [id number] Closed 03/07/2021 03/07/2022 1 1 Encounter Details Date Type Department Care Team Description 04/17/2021 Office Visit [facility] Sp[facility] Arpita Whitney Lo w back pain, non-specific; at [facility] SEARCH ENGINE MARKETING SPECIALIST Status post vertebroplasty; [facility] Tra nsient left leg weakness Drive [place], [place] [phone] Social History Tobacco [...] from the original note were not included. [facility] FOR PA[facility] SPINE CONSULTATION Date of [...] here for today. Had lumbar imaging and [facility] as ordered by PCP with no [...] standing limited due to back pain [facility] Prescription Monitoring Program was checked. The number of prescriptions reported was 0. Current Medications: Outpatient Medications Marked as Taking for the 04/17/21 encounter (Office Visit) with Arpita Whitney APRN Medication Sig Dispense Refill ??? fluticasone propionate (FLONASE) 50 mcg/actuation [place], Suspension as needed. ??? fluorouraciL (EFUDEX) 5 [...] Biopsy Spine 07/20/2019 Bobby Marshall MD [facility] INTERVENTIONL RAD ??? IR VERTEBROPLASTY LUMBAR MULTIPLE LEVELS 07/20/2019 IR Vertebroplasty Lumbar Multiple Levels 07/20/2019 Bobby Marshall MD [facility] INTERVENTION[facility] RAD ??? IR VERTEBROPLASTY THORACIC SINGLE LEVEL 10/25/2020 IR Vertebroplasty Thoracic Single Level 10/25/2020 Matt [place] MD [facility] INTERVENTIONL RAD Review of Systems: ROS: [...] y.o. year-old male who presents to the [facility] for Pain and Spine clinic, previously [...] Mr. Koko Zamora's care. Arpita Whitney, MSN, CONSTRUCTION PERSON- C, SEARCH ENGINE MARKETING SPECIALIST Nurse Practitioner [facility] [place] [address] / [facility] documented in this encounter Plan of Treatment Upcoming Encounters Date Type Specialty Care Team Description 08/08/2022 Office Visit Gastroenterology Negra Collins MD [facility] GASTROENTEROLOGY DEPT [place], [place] [address] (Wo rk) 09/05/2022 Appointment Cardiology Trinity Reid MD [facility] CARDIOLOGY [place], [place] [address] (Wo rk) 09/05/2022 Office Visit Cardiology Trinity Reid MD [facility] CARDIOLOGY [place], [place] [address] (Wo rk) Scheduled Referrals Name [...] limbs documented in this encounter Care Teams Dice Manager Relationship Specialty Start Date End Date Bobby Das MD PCP - General 10/02/[address] [place] [address] [place] [phone] documented as of this encounter
--- OUTSIDE RECORDS SUMMARY | 2022-07-19 13:20 | XMS_ITS | Encounter Summary ---
:1940 [place] [address] Care Team Providers Name Role Phone Bobby Das MD Primary Care Provider Encounter Details Date Type Department Care Team Description 08/25/2015 Telephone Dermatology at [facility] Gloria Ferrell MD [address] [facility] [place] [address] [facility] [phone] [place], [place] [address] (Wo rk) Social History Tobacco [...] [facility] GASTROENTEROLOGY DEPT [place], [place] [address] (Wo rk) 09/05/2022 Appointment Cardiology Trinity Reid MD [facility] CARDIOLOGY [place], [place] [address] (Wo rk) 09/05/2022 Office Visit Cardiology Trinity Reid MD [facility] CARDIOLOGY [place], [place] [address] (Wo rk) documented as of this encounter Visit Diagnoses Not on filedocumented in this encounter Care Teams Administrative Support Manager Relationship Specialty Start Date End Date Bobby Das MD PCP - General 10/02/[address] [place] [address] [place] [phone] documented as of this encounter
--- OUTSIDE RECORDS SUMMARY | 2022-07-19 13:20 | XMS_ITS | Encounter Summary ---
:1940 Author Organization [facility] Address [facility] [place] [address] Care Team Providers Name Role Phone Bobby Das MD Primary Care Provider Encounter Details Date Type Department Care Team Description 10/25/2020 Laboratory Appointment Lab at [facility] Compression fracture [facility] of T9 [place] [address] Social History Tobacco Use Types Packs/Day Years [...] MD [facility] DR GASTROENTEROLOGY DEPT [place], [place] [address] (Wo rk) 09/05/2022 Appointment Cardiology Trinity Reid MD [facility] CARDIOLOGY [place], [place] [address] (Wo rk) 09/05/2022 Office Visit Cardiology Trinity Reid MD [facility] CARDIOLOGY [place], [place] [address] (Wo rk) documented as of this encounter Procedures Procedure Name Priority Date/Time Associated Diagnosis Comme [facility] VENIPUNCTURE Routine 10/25/2020 6:35 AM Compression [...] athologist Signature Platelets 192 145 - 357 [facility] x10(3)/[facility] LABORATORY Plat Immature 2.6 0.0 - 7.4 [facility] % % [facility] LABORATORY Comment: Limitation of the Immature Platelet Frac tion (IPF)-May be less reliable when the platelet count is less than 62x540/u L due to statistical imprecision. The IPF [...] in a decreased state of production. References: [employer] The Clinical Value of the Immature Platelet Fraction (IPF) in Cell Recovery Document Number 10-1143 04/2011 [employer] The Role of the Imm ature [...] Organization Address City/State/[place] [address] Prothrombin Time (10/25/2020 6:35 AM EST) athologist Signature PT 10.8 9.4 - 12.5 [facility] LABORATORY INR 1.0 [facility] [...] Organization Address City/State/ZIP Code Phon e Number [place] [id number] documented in this encounter Visit Diagnoses Diagnosis Compression fracture of T9 vertebra, ini tial encounter documented in this encounter Care Teams Yarrow Gatherer Relationship Specialty Start Date End Date Bobby Das MD PCP - General 10/02/[address] [place] [address] [place] [phone] documented as of this encounter
--- OUTSIDE RECORDS SUMMARY | 2022-07-19 13:20 | XMS_ITS | Encounter Summary ---
:1940 Author Organization [facility] [place] [address] Care Team Providers Name Role Phone Bobby Das MD Primary Care Provider Reason for Referral Diagnostic Test (Routine) - Specialty Diagnoses / Procedures Referred By Contact Refer red To Contact Radiology Diagnoses Chest pain, unspecified type Chronic abdominal pain Chano Rebolledo MD [facility] Rad Ct Scan Procedures CT Chest w Contrast CT Chest wo Contrast (Generic) [facility] [place] [address] [place] [address] Referral ID Status Reason Start Date Expiration Visits Visits Date Requested Authorized [id number] Specialty 12/13/2016 12/13/2017 1 1 Service Requested Diagnostic Test (Routine) - Closed Specialty Diagnoses / Procedures Referred By Contact Refer red To Contact Radiology Diagnoses Chest pain, unspecified type Chronic abdominal pain Chano Rebolledo MD [facility] Rad Ct Scan Procedures CT Abdomen & Pelvis w Contrast [facility] [place] [address] [place] [address] Referral ID Status Reason Start Date Expiration Date Visits V isits Requested Authorized [id number] Closed Specialty 12/13/2016 12/13/2017 1 1 Service Requested Reason for Visit Diagnostic Test (Routine) - Closed Specialty Diagnoses / Procedures Referred By Contact Refer red To Contact Radiology Diagnoses Chest pain, unspecified type Chronic abdominal pain Chano Rebolledo MD [facility] Rad Ct Scan Procedures CT Abdomen & Pelvis w Contrast [facility] [place] [address] [place] [address] Referral ID Status Reason Start Date Expiration Date Visits V isits Requested Authorized [id number] Closed Specialty 12/13/2016 12/13/2017 1 1 Service Requested Encounter Details Date Type Department Care Team Description 12/17/[address] Scan at [facility] Fanciullo, Chest pain, unspecified type ; [facility] Leonel Sullivan MD Chronic abdominal pain Drive [facility] [address] PAIN CLINIC [phone] [place] [address] Social History Tobacco Use Types [...] Negra Collins MD [facility] GASTROENTEROLOGY DEPT [place], [place] [address] (Wo rk) 09/05/2022 Appointment Cardiology Trinity Reid MD [facility] DR [address] [place], [place] [address] (Wo rk) 09/05/2022 Office Visit Cardiology Trinity Reid MD [facility] DR [address] [place], [place] [address] (Wo rk) documented as of [...] 1237 documented in this encounter Care Teams Golf Club Head Inspector Relationship Specialty Start Date End Date Bobby Das MD PCP - General 10/02/[address] [place] [address] [place] [phone] documented as of this encounter
--- OUTSIDE RECORDS SUMMARY | 2022-07-19 13:20 | XMS_ITS | Encounter Summary ---
:1940 Author Organization [facility] [place] [address] Care Team Providers Name Role Phone Bobby Das MD Primary Care Provider Encounter Details Date Type Department Care Team Description 09/22/2020 Telephone Pain and Spine Leon reid at [facility] [place] [address] Social History Tobacco Use Types Packs/Day [...] MD [facility] GASTROENTEROLOGY DEPT [place], [place] [address] (Wo rk) 09/05/2022 Appointment Cardiology Trinity Reid MD [facility] ER CARDIOLOGY [place], [place] [address] (Wo rk) 09/05/2022 Office Visit Cardiology Trinity Reid MD [facility] ER CARDIOLOGY [place], [place] [address] (Wo rk) documented as of this encounter Visit Diagnoses Not on filedocumented in this encounter Care Teams Assistant Associate Professor Relationship Specialty Start Date End Date Bobby Das MD PCP - General 10/02/[address] [place] [address] [place] [address] documented as of this encounter
--- OUTSIDE RECORDS SUMMARY | 2022-07-19 13:20 | XMS_ITS | Encounter Summary ---
:1940 [place] [address] Care Team Providers Name Role Phone Bobby Das MD Primary Care Provider Reason for Visit Reason Comments Left Leg Pain Auth/Cert Specialty Diagnoses / Procedures Referred By Contact Refer red To Contact Diagnoses Limb ischemia LLE thrombus Fito Summers MD [facility] [place] [address] Referral ID Status Reason Start Date Expiration Date Visits Requ ested Visits Authorized [id number] 1 1 Encounter Details Date Type Department Care Team Description 05/15/2022 Surgery Main Operating Room Savana Summers se, MD [facility] FEMOROPOSANG, [facility] VASCULAR SURG JULIAN [place] [address] [place] ([place] [address] 19.48) [phone] Social History Tobacco Use Types Packs/Day Years [...] onset Afib who presents in transfer from [facility] with acute limb ischemia of the [...] emergently went to the OR for L BRAND AMBASSADOR PROMOTIONAL MODEL transverse arteriotomy and primary repair, thromboembolectomy of L SFA/PFA/BRAND AMBASSADOR PROMOTIONAL MODEL, reperfusion venous drainage for 250 cc, and [...] Discharge Condition: Good Discharge to: Home with [facility] [address] [address] Future Appointments and Orders Future Appointments and Orders Future Appointments Provider Department Dept Phone 05/23/2022 10:30 AM Loretta Cohen MD Dermatology at [facility] Arrive at: Logging Operations Inspector [address] [place] [address] 06/07/2022 1:30 PM Gail Rae APRN Vascular Surgery at [facility] Arrive at: Logging Operations Inspector Area [phone] 06/13/2022 7:30 AM Edson Lagos [place] Vascular Lab at [facility] Arrive at: Logging Operations Inspector Area [phone] 06/13/2022 8:00 AM Fito Summers MD Vascular Surgery at [facility] Arrive at: Logging Operations Inspector Area 3V [phone] 06/13/2022 10:00 AM Alan Reid MD Cardiology at [facility] Arrive at: Logging Operations Inspector Area 4A [phone] Future Orders Complete By Expires Ziopatch 48 Hrs-15 Days [GHH1651 CPT(R)] 05/21/2022 11/20/2022 Process Instructions: Scheduling Instructions: Comments: Questions: Does the patient have a pacemaker? If yes provide HI/LO settings: Apply for 7 or 14 days?: 7 Where will study be performed?: [facility] JOSSELYN, legs, multiple levels [VAS8 Custom] 06/21/2022 (Approximate) 12/21/2022 Process Instructions: There is no in-house vascular labor delivery specialist available on weeknights (5pm-8am), weekends, or holidays. IF THIS IS A REQUEST FOR AN EMERGENT STUDY DURING THOSE HOURS, please have the senior provider responsible for the patient page the Vascular Surgery Fellow/Senior Resident fitness sales consultant to discuss options. Scheduling Instructions: Questions: Indication for study/signs & symptoms: ALI s/p L fem cutdown with thromboembolectomy Question to be answered: Perfusion to feet? Please check toe pressure Preferred location?: [facility] Referral to Cardiology [REF12 Custom] As [...] Zamora for admission to Home Health. [address] [id number] (home) Date of : 1940 Inpatient DOCUMENTATION FOR VNA SERVICES (INCLUDING THOSE PATIENTS WITH MEDICARE COVERAGE REQUIRING HOME VNA SERVICES AND/OR HOSPICE SERVICES) PATIENT'S LOCATION: Koko Zamora [address] [address] (home) Cell: No relevant phone numbers on file. Corrugator Machine Operator's Name: Koko In discussion with the attending physician, it is certified that this patient is under their care and that they, or a Nurse Practitioner,Clinical Nurse specialist or Physician Skidder Lever Operator who is working directly with them, [...] for managing ADL's. HOME HEALTH CARE AGENCY: [facility] [address] [place] [id number] Start of care: Within 24 to 48 [...] obtained from this patient'sPCP: Bobby Das MD [address] [place] [address] / [place] [address] All VNA agencies which [...] For any problems or questions please call [phone] For issues on weeknights after 5pm and weekends please call [phone] and ask for the Vascular Fellow fitness sales consultant. JOSEE Santiago Vascular Surgery 05/21/2022 documented [...] For any problems or questions please call [phone] For issues on weeknights after 5pm and weekends please call [phone] and ask for the Vascular Fellow fitness sales consultant. documented in this encounter Medications at [...] 04/12/20 21 (FLONASE) 50 mcg/actuation Nare route [place], Suspension daily as needed. fluorouraciL (EFUDEX) 5 [...] onset Afib who presents in transfer from [facility] with acute limb ischemia of the [...] status, full code. JOSEE Santiago 05/21/2022 Pager: [phone] PaBrannon gamino, PT - 05/21/2022 10:35 AM [...] plan as stated. Time IN / OUT: 2729-0501 Total Minutes, Physical Therapy: 25 Billing Code: 2 TA Brannon Isaacs DPT Pager: [phone] Physical Therapy Inpatient Rehabilitation Department [place] Jean [...] 04/17/2021 in Pain and Spine Center at [facility] Weight 79.8 kg (175 lb 14.8 oz) [...] and plan of care per Dr. Mcnamara (administrative clerk). Please refer to her note above for [...] limb ischemia (thromboembolic) and he is a half-way smoker (1/2 ppd, recommend nicotine patch). His [...] to Hosp-Admission (Current) from 05/15/2022 in 4 [facility] Office Visit from 04/17/2021 in Pain and Spine Center at [facility] Weight 79.8 kg (175 lb 14.8 oz) [...] findings andplan of care per Dr. Mcnamara (administrative clerk). Please refer to her note above for [...] a mitral repair in 2000 (not at [facility]) with no CAD at that time. Currently, [...] AF and the first documented HR at [facility] was 125 bpm (presented to an an [...] onset Afib who presents in transfer from [facility] with acute limb ischemia of the [...] management following Dottie Hill APRN 05/20/2022 Pager: [phone] Laney Atkins RN - 05/20/2022 1:14 AM EDT Pt Koko transferred [facility] room from [facility]. A&Ox4, oriented to room and call boo. Masimo and telemetry placed. In agreement with assessment as documented this evening by Nuris ASHLEY. No complaints at this time. Pt aware of NPO status and plan for cardiac cath in AM. Urinal provided. Resting comfortably in bed. Nuris Lester RN - 05/20/2022 1:09 AM EDT Pt. Transferred to [facility]. RN accompanied patient to floor and handed off to [facility] RN Dottie Hill APRN - 05/19/2022 10:02 AM EDT Vascular Surgery Progress Note Koko Zamora is a 81 y.o. male with w new onset Afib who presents in transfer from [facility] with acute limb ischemia of the [...] management following Dottie Hill APRN 05/19/2022 Pager: [phone] Emily Sauceda RN - 05/19/2022 6:28 AM EDT OUTCOME EVALUATION NOTE: OUTCOME SUMMARY: Patient AOx4, VSS on RA. Afib on tele. HR controlled w/ PRN metop, given x2. Denies CP, SOB, n/v. See flowsheets for NVC. Dressings to LLE CDI, prevena [place] to groin intact. Voiding to urinal. LBM BACK ROLL LATHE OPERATOR, patient stating he will maybe try [...] adequately without difficulty to bedside urinal. LBM BACK ROLL LATHE OPERATOR. Up to chair this AM with nursing staff. Worked with PT, tolerated well. Diet changed to regular at 1800.Plan is for cardiac cath on Friday. PLAN MOVING FORWARD: Bleeding precautions Pain management neurovascular checks PT/OT collaborating supervising physician INDIVIDUALIZED FALL PREVENTION INTERVENTIONS: Patient-specific fall risk [...] onset Afib who presents in transfer from [facility] with acute limb ischemia of the [...] mL Intravenous BID ??? PHENobarbitaL 0.12 mg/kg/dose (Reddick) Oral BID ??? thiamine 100 mg Oral [...] management following Dottie Hill APRN 05/18/2022 Pager: [phone] Brannon Isaacs, PT - 05/18/2022 10:00 AM [...] IR Biopsy Spine 07/20/2019 Bobby Marshall MD [facility] INTERVENTIONL RAD ??? IR VERTEBROPLASTY LUMBAR MULTIPLE LEVELS 07/20/2019 IR Vertebroplasty Lumbar Multiple Levels 07/20/2019 Bobby Marshall MD [facility] INTERVENTIONL RAD ??? IR VERTEBROPLASTY THORACIC SINGLE LEVEL 10/25/2020 IR Vertebroplasty Thoracic Single Level 10/25/2020 Matt Chisholm MD [facility] INTERVENTIONL RAD ??? PRO EMBLC/THRMBC FEMORAL POPLITEAL AORTO-ILIAC ARTERY Left 05/15/2022 EMBOLECTOMY OR THROMBECTOMY, FEMOROPOPLITEAL, AORTOILIAC ARTERY BY LEG INCISION (WRVU 19.48) performed by Fito Summers MD at [facility] MAIN OR Social History: Pt [...] in this evaluation. Time IN / OUT: 0495-7281 Total Minutes, Physical Therapy: 30 Billing Code: Basilio Isaacs, PT Pager: [phone] Physical Therapy Inpatient Rehabilitation Department Emily Sauceda RN - 05/18/2022 4:34 AM EDT OUTCOME EVALUATION NOTE: OUTCOME SUMMARY: Patient AOx4, VSS on 2LNC. Afib on tele. HR above 120, MD aware, PRN IV metop given x1, HR returned to 90's-low 100's. Denies CP, SOB, n/v. See flowsheets for NVC. Dressings to LLE CDI, prevena [place] to groin intact. Voiding to urinal. LBM BACK ROLL LATHE OPERATOR. Heparin gtt therapeutic. Pain controlled. Patient [...] adequately without difficulty to bedside urinal. LBM BACK ROLL LATHE OPERATOR. Patient not OOB this shift. Currently NPO awaitingprocedure in laboratory assistant. PLAN MOVING FORWARD: Bleeding precautions Pain management neurovascular checks PT/OT NPO for laboratory assistant INDIVIDUALIZED FALL PREVENTION INTERVENTIONS: Patient-specific [...] the Emergency Department as a transfer from [facility] with left lower extremity limb ischemia. He went to [facility] and was startedon heparin and transferred to [facility] for evaluation by vascular [...] will will be going to the laboratory assistant for evaluation. Will defer PT eval at present but will see as ordered post cardiac catheritizaton. Social Hx:Pt lives with his Ursula in [place], [place] in a 2 level home in [...] WBAT LLE LISBET HERMAN PT Pager # [phone] In-Pt Rehab Medicine Dottie Hill APRN - 05/17/2022 7:42 AM EDT Vascular Surgery Progress Note Koko Zamora is a 81 y.o. male with w new onset Afib who presents in transfer from [facility] with acute limb ischemia of the [...] mL Intravenous BID ??? PHENobarbitaL 0.24 mg/kg/dose (Reddick) Oral BID Followed by ??? [START ON 05/18/2022] PHENobarbitaL 0.12 mg/kg/dose (Reddick) Oral BID ??? thiamine 100 mg Oral [...] management following Dottie Hill APRN 05/17/2022 Pager: [phone] Sary Dos Santos, RN - 05/17/2022 12:16 [...] onset Afib who presents in transfer from [facility] with acute limb ischemia of the [...] mL Intravenous BID ??? PHENobarbitaL 0.48 mg/kg/dose (Reddick) Oral BID Followed by ??? [START ON 05/17/2022] PHENobarbitaL 0.24 mg/kg/dose (Reddick) Oral BID Followed by ??? [START ON 05/18/2022] PHENobarbitaL 0.12 mg/kg/dose (Reddick) Oral BID ??? thiamine 100 mg Oral [...] management following Edward Rodríguez MD 05/16/2022 Pager: [phone] Sary Dos Santos RN - 05/16/2022 12:52 [...] 2129 Hand off to DION Ramirez 3 waldron documented in this encounter H&P Notes Kerry [...] onset Afib who presents in transfer from [facility] with acute limb ischemia of the [...] IR Biopsy Spine 07/20/2019 Bobby Marshall MD [facility] INTERVENTIONL RAD ??? IR VERTEBROPLASTY LUMBAR MULTIPLE LEVELS 07/20/2019 IR Vertebroplasty Lumbar Multiple Levels 07/20/2019 Bobby Marshall MD [facility] INTERVENTIONL RAD ??? IR VERTEBROPLASTY THORACIC SINGLE LEVEL 10/25/2020 IR Vertebroplasty Thoracic Single Level 10/25/2020 Matt Chisholm MD [facility] INTERVENTIONL RAD Social Hx: Social [...] Refill ??? fluticasone propionate (FLONASE) 50 mcg/actuation [place], Suspension as needed. ??? fluorouraciL (EFUDEX) 5 [...] and consented. Tim Chicas MD 05/15/2022 Pager: [phone] documented in this encounter ED Notes Lc Harris PA - 05/15/2022 1:20 PM EDT ED Provider Note HPI: Koko Zamora is a 81 y.o. male with history of atrial fibrillation not on anticoagulation, and GI bleeding who presents to the Emergency Department as a transfer from [facility] with left lower extremity limb ischemia. Patient says that the symptoms started roughly 630 this morning when he developed severe pain in his left lower extremity. He went to [facility] and was started on heparin and transferred to [facility] for evaluation by vascular [...] src: Oral SpO2: 94 % O2 Device: AK O2 Flow Rate (L/min): 2 L/min Physical [...] lower extremity earlier today and went to [facility] where it was determined that he had ischemia of the left lower extremity. Vascular surgery [facility] was contacted and he was transferred here [...] orders before pt. Arrival. Pt. Arrived at [facility] by EMS at 1150, vascular team at [...] in an outpatient cardiac rehabilitation program at [facility] was discussed. Patient agrees to a referral to this program. Timing will depend on his recovery from Vascular surgery. He is going home w/VNA PT. I gave him the brochure for the program at [facility] for future reference. Care Management Discharge [...] information for follow-up Home Health & Hospice, [place] [address] [place] [address] Transportation: family or friend will provide Functional [...] Type: *No Product type* / Secondary Insurance: [facility] Prescription Coverage: Yes This plan was formulated with input from patient and team. All are in agreement with plan. RS [facility] - for initial IMM. Shawn (Satish) DION López RN/CM - Cellphone: [phone] Pager: [phone] Covering Service RN/CM Plan of Care - [...] catheterization, transferred in hospital bed accompanied by Precision Structural Metal Fitter RN, remains on telemetry monitoring. Heparin gtt [...] Type: *No Product type* / Secondary Insurance: [facility] Last Physical Therapy Recommendation: home with home health, home with supervision with None Last Occupational Therapy Recommendation: with Plan for discharge is: Home w/ Services Outpatient Agency/Support Group Needs: None Home Health Services: Registered Nurse, Physical Therapy, Occupational Therapy Agency Referrals: I have met with the patient to: ?? discuss discharge planning needs. ?? provide the [facility], Office of Care Management letter from the Electrical Tester pertaining to rehab referrals. ?? provide a letter describing our affiliations within the [facility] and educate about their right to choose where referrals are sent. ?? provide a list of Home Health Agencies / Durable Medical Equipment vendors which serve their preferred geographic area. ?? provided patient with [facility] Star Quality Rating handout. They have requested referrals to: [facility]. [address] [place] [address] Note routed to a Color Expert who will communicate referrals to facilities and provide any required information. Transportation: family or friend will provide Barriers to discharge: None Plan going forward: Patient is going for a cardiac cath today and plan will come from there. Patientwas recently seen by PT and they recommend VNA at time of discharge. [facility] was routed and pendedat this time. Care Management will continue to follow and assist with discharge planning and coordination of care as indicated. Anticipated Date of Discharge: 05/21/2022 Nataly RICHMOND RN Phone: [phone] Pager: [phone] Plan of Care - Laney Atkins RN [...] [facility] [place] [address] [address] INPATIENT CARDIOLOGY CONSULT NOTE Date of Consultation: 05/17/2022 Admit Date: 05/15/2022 Hospital Day 2 days Reason for Consult: New afib Active Problems: Active Hospital Problems Diagnosis Limb ischemia Resolved Hospital Problems No resolved problems to display. HPI: Koko Zamora is a 81 y.o. male with a PMHx significant for MVP (s/p MV repair 2000), tobacco use, HLD, who presented to [facility] from OSH on 05/15 with acute limb ischemia of LLE and was found to be in atrial fibrillation. Patient had sudden onset LLE pain on 05/15 and presented to [facility], where he was started on heparin and transferred to [facility]. Upon arrival to [facility], patient was in atrial fib with RVR [...] IR Biopsy Spine 07/20/2019 Bobby Marshall MD [facility] INTERVENTIONL RAD IR VERTEBROPLASTY LUMBAR MULTIPLE LEVELS 07/20/2019 IR Vertebroplasty Lumbar Multiple Levels 07/20/2019 Bobby Marshall MD [facility] INTERVENTIONL RAD IR VERTEBROPLASTY THORACIC SINGLE LEVEL 10/25/2020 IR Vertebroplasty Thoracic Single Level 10/25/2020 Matt Chisholm MD [facility] INTERVENTIONL RAD PRO EMBLC/THRMBC FEMORAL POPLITEAL AORTO-ILIAC ARTERY Left 05/15/2022 EMBOLECTOMY OR THROMBECTOMY, FEMOROPOPLITEAL, AORTOILIAC ARTERY BY LEG INCISION (WRVU 19.48) performed by Fito Summers MD at [facility] MAIN OR Allergies Allergen Reactions Aspirin Other (See Comments) GI bleed Out-Patient Medications: Medications Prior to Admission Medication Sig Dispense Refill Last Dose fluorouraciL (EFUDEX) 5 % Cream daily. CRESTOR 40 mg Tablet Take 40 mg by mouth daily. fluticasone propionate (FLONASE) 50 mcg/actuation [place], Suspension as needed. ascorbic acid, vitamin C, [...] 5 mL Intravenous BID PHENobarbitaL 0.24 mg/kg/dose (Reddick) Oral BID Followed by [START ON 05/18/2022] PHENobarbitaL 0.12 mg/kg/dose (Reddick) Oral BID thiamine 100 mg Oral Daily folic acid 1,000 mcg Oral Daily multivitamin with minerals 1 tablet Oral Daily heparin (porcine) infusion 1,200 Units/hr (05/17/22 0901) Family History: No family history on file. [...] to Hosp-Admission (Current) from 05/15/2022 in 3 [facility] Office Visit from 04/17/2021 in Pain and Spine Center at [facility] Weight 79.8 kg (175 lb 14.8 oz) [...] continue to follow Anne-Marie Larson MD Pager [phone] Clinic: [phone] 05/17/22 6:22 PM Initial Assessments - Ifrah [...] spouse would be surrogate decision maker per [place] surrogate decision making law. (Only good for 180 days) Any patient receiving care at [facility] must abide by [place] law. The hierarchy for surrogate decision making [...] (i) The agent with financial power of estate planning attorney or a conservator appointed in accordance [...] raised toilet seat Home Address confirmed as: [address] [place] [id number] Social & Family Supports: All names listed below confirmed with patient as Incorrect. Will notify toni to correct. Wifes address is same as and phone is [phone]. Extended Emergency Contact Information Primary Emergency Contact: Ursula Zamora Address: [address] [place] [address] [address] [place] [address] [facility] Relation: Spouse Current Care Provided [...] Type: *No Product type* / Secondary Insurance: [facility] Prescription Coverage: Yes Preferred Pharmacy: [id number] - [place], [place] - [address] [facility] [address] [facility] [address] [id number] - [place], [place] - [address] [facility] [address] [facility] [address] [place] Status: Patient is a : unable to assess Primary Care Provider: Bobby Das MD [phone] Patient/Caregiver Goals of Treatment: to walk again Potential Needs for Transition of Care: none noted per 05/16 IDR Transportation: family will provide Transportation Anticipated: family or friend will provide Concerns to be Addressed: no discharge needs identified Assessment: Patient is admitted to vascular surg service for left lower extremity limb ischemia Plan: Per PT OT recommendations . Has used [employer] in the past. A member of the Care Management team will continue to monitor progress, follow for continuity of care and assist with transition of care planning. Ifrah Bell RN BSN Die InspectorSupervisor [place] of Care Management Pager [phone] Brief Op Note - Erin Garza MD - 05/15/2022 5:04 PM EDT Brief Operative Note Patient Name: Koko Zamora : [id number] MR#: [id number] Case Date: 05/15/2022 Surgeon: Surgeon(s) and Role: [...] Garza MD - 05/15/2022 2:08 PM EDT [facility] Operative Note Patient Name: Koko Zamora : [id number] MR#: [id number] Case Date: 05/15/2022 Surgeon: Surgeon(s) and Role: [...] MD [facility] GASTROENTEROLOGY DEPT [place], [place] [address] (Wo rk) 09/05/2022 Appointment Cardiology Trinity Reid MD [facility] CARDIOLOGY [place], [place] [address] (Wo rk) 09/05/2022 Office Visit Cardiology Trinity Reid MD [facility] CARDIOLOGY [place], [place] [address] (Wo rk) Scheduled Referrals Name [...] Component Value Ref Test Analysis Performed At [facility] Range Method Time Signature VB Text Department: Vascular Surgery Lab VASCUBASE Report Patient: [id number] (KOKO ZAMORA) CPT: 47409 Referring Physician: FITO SUMMERS ?? Phone: Indications: s/p L BRAND AMBASSADOR PROMOTIONAL MODEL endart. Diabetes mellitus: no Findings: Right ?Pressure [...] P athologist Signature Heparin UFH 0.42 IU/mL [facility] LABORATORY Comment: Heparin (anti-Xa) levels should be [...] Organization Address City/State/[place] [address] Differential, Automated (05/21/2022 6:15 AM EDT) P athologist Signature Neutrophils % 58.8 % [facility] LABORATORY Neutr Abs (ANC) 3.97 1.70 - [facility] 6.10 [facility] x10(3)/[facility] LABORATORY Lymphocytes % 25.2 % [facility] LABORATORY Lymphocytes Abs 1.7 0.9 - 3.2 [facility] x10(3)/[facility] LABORATORY Monocytes % 12.9 % [facility] LABORATORY Monocyte Abs 0.9 0.3 - 0.9 [facility] x10(3)/[facility] LABORATORY Eosinophils % 2.1 % [facility] LABORATORY Eosinophils Abs 0.1 0.0 - 0.4 [facility] x10(3)/[facility] LABORATORY Basophils % 0.4 % [facility] LABORATORY Basophils Abs 0.0 0.0 - 0.1 [facility] x10(3)[facility] LABORATORY Immature Gran % 0.60 % [facility] [...] Rain Gran Abs 0.04 0.00 - 0.04 x10(3)/[facility] LABORATORY Specimen Anatomical Collection Method Collection Time Receive d Time (Source) Location / / Volume Laterality Blood 05/21/2022 6:15 AM 2 6:38 EDT AM EDT Resulting Agency Comment Spec In Lab Edward Rodríguez MD HEMATOLOGY ORDERABLES Performing Organization Address City/State/[place] [address] (ABNORMAL) Hemogram (05/21/2022 6:15 AM EDT) [facility] gist Method Time Signature WBC 6.8 4.0 - 9.5 [facility] x10(3)/[facility] LABORATORY RBC 3.59 (L) 4.58 - [facility] 5.54 [facility] x10(6)/[facility] LABORATORY Hemoglobin 11.8 (L) 13.7 - [facility] 16.5 g/dL [facility] LABORATORY Hematocrit 34.5 (L) 40.5 - [facility] 48.5 % [facility] LABORATORY MCV 96.1 (H) 82.9 - [facility] 93.1 [facility] LABORATORY MCH 32.9 (H) 27.5 - [facility] [facility]1 pg [facility] MCHC 34.2 32.0 - [facility].7 g/dL [facility] Platelets 198 145 - 357 [facility] x10(3)/[facility] LABORATORY RDWSD 44.9 36.0 - [facility] 45.0 [facility] LABORATORY RDWCV 12.6 11.4 - [facility] 13.8 % [facility] MPV 10.0 7.6 - 12.9 [facility] LABORATORY nRBC % Auto 0.3 % [facility] nRBC Abs Auto 0.020 (H) 0.000 - [facility] 0.000 [facility] x10(3)/[facility] LABORATORY Specimen Anatomical Collection Method Collection Time Receive d Time (Source) Location / / Volume Laterality Blood 05/21/2022 6:15 AM 2 6:38 EDT AM EDT Resulting Agency Comment Spec In Lab Edward Rodríguez MD HEMATOLOGY ORDERABLES Performing Organization Address City/State/[place] [address] EKG 12 Lead (05/20/2022 7:04 PM EDT) Component Value Ref Range Test Analysis Performed Pathologis t Method Time At Signature Ventricular rate 101 BPM MUSE SYSTEM QRS Duration 116 ms MUSE SYSTEM Q-T Interval 378 ms MUSE SYSTEM QTC Calculated 490 ms MUSE SYSTEM (Bezet) Calculated R Montverde -53 degrees MUSE SYSTEM Calculated T [place] 101 degrees MUSE SYSTEM INTERPRETATION Atrial fibrillation [...] Laterality Volume Narrative 05/20/2022 7:09 PM EDT ?[facility] ? Cardiac Cathete rization/Intervention Report ? Patient Name: Koko Zamora. ? Procedure Date: 05/20/2022 ? A #: [id number] ? Primary Physician: Abundio Servin ? Case #: [id number] ? File Name: [id number] ? Catheterization Order Number: [id number] ? [facility] ? Final Report [place], [place] ? Patient Name: ? Koko J. Klarissa uson ? ID#: ?[id number] ? : ?1940 ? Procedure Date: ? [...] was Urgent. The indication for ?the laboratory assistant visit is cardiomyo nita. Chest [...] ?3.5 guiding catheter and a 3.5 Fr [facility] [address] ??20 Mhz. ??Imaging ?was successful. ??Image [...] premounted 2. 75 x 30 mm [place] (AMPARO) was deployed ? with a maximum [...] may require ?modification of this regimen. [facility] Interventional Cardiology for ?questions. ?The 1 year [...] note might be different from the original. [facility] Cardiac Catheterization/Intervention Re port Patient Name: Koko Zamora Procedure Date: 05/20/2022 A #: [id number] Primary Physician: Abundio Servin Case #: File Name: [id number] Catheterization Order Number: [id number] [facility] Final Report [place], [place] Patient Name: Koko Zamora ID#: [id number] : 1940 Procedure Date: May 20, 2022 [...] designated a s ASA Class IV. The [facility] clinical frailty scale is 3: Managing [...] e was Urgent. The indication for the laboratory assistant visit is cardiomyopathy. C hest pain symptom [...] 3.5 guiding catheter and a 3.5 Fr [facility] [employer] [address] 20 Mhz. Imaging was successful. Image [...] atmospheres. A premounted 2.75 x 30 mm [place] (AM[place]O) was deployed with a maximum inflation [...] require modification of this regimen. Consult D [facility] Interventional Cardiology for questions. The 1 year [...] Signature POC Glucose 123 65 - 199 [facility] mg/dL [facility] Comment: Supplemental ranges: <140 mg/dL before meals <180 mg/dL all other times of the day Specimen Anatomical Collection Method Collection Time Receive d Time (Source) Location / / Volume Laterality Blood 05/20/2022 5:42 PM 2 5:42 EDT PM EDT Fito Summers MD POINT OF CARE TEST ORDERABLE S Performing Organization Address City/State/[place] [address] (ABNORMAL) BMP w/fasting Glucose (05/20/2022 10:50 AM EDT) athologist Signature Glucose 152 (H) 65 - 99 [facility] Fasting mg/dL [facility] Comment: ?Fasting* Glucose Interpretive [...] of Diabetes Mellitus, Position Statement from the [place] [employer]. ??Diabete s Care, Volume 33, Supplement 1, Nov 2009 BUN 11 10 - 20 mg/dL [facility] Creatinine 0.63 (L) 0.80 [...] Anion Gap 10 5 - 15 mmol/L [facility] Calcium 8.7 8.5 - [...] Organization Address City/State/[place] [address] Heparin (unfractionated) Level (05/20/2022 5:02 AM EDT) P athologist Signature Heparin UFH 0.57 IU/mL [facility] LABORATORY Comment: Heparin (anti-Xa) levels should be [...] Organization Address City/State/[place] [address] (ABNORMAL) Differential, Automated (05/20/2022 5:02 AM EDT) Patholo gist Method Time Signature Neutrophils % 58.1 % [facility] Neutr Abs (ANC) 4.52 1.70 - [facility] 6.10 [facility] x10(3)/[facility] LABORATORY Lymphocytes % 24.1 % [facility] Lymphocytes Abs 1.9 0.9 - 3.2 [facility] x10(3)/[facility] LABORATORY Monocytes % 13.8 % [facility] Monocyte Abs 1.1 (H) 0.3 - 0.9 [facility] x10(3)/[facility] LABORATORY Eosinophils % 2.6 % [facility] Eosinophils Abs 0.2 0.0 - 0.4 [facility] x10(3)/[facility] LABORATORY Basophils % 0.8 % [facility] Basophils Abs 0.1 0.0 - 0.1 [facility] x10(3)/[facility] LABORATORY Immature Gran % 0.60 [...] Gran Abs 0.05 (H) 0.00 - 0.04 x10(3)/[facility] LABORATORY Specimen Anatomical Collection Method Collection Time Receive d Time (Source) Location / / Volume Laterality Blood 05/20/2022 5:02 AM 5:19 EDT AM EDT Resulting Agency Comment Spec In Lab Edward Rodríguez MD HEMATOLOGY ORDERABLES Performing Organization Address City/State/[place] [address] (ABNORMAL) Hemogram (05/20/2022 5:02 AM EDT) Analysis Performed At Patho logist Time Signature WBC 7.8 4.0 - 9.5 [facility] x10(3)/[facility] LABORATORY RBC 3.53 (L) 4.58 - [facility] 5.54 [facility] x10(6)/[facility] LABORATORY Hemoglobin 11.4 (L) 13.7 - [facility] 16.5 g/dL [facility] Hematocrit 34.3 (L) 40.5 - [facility] 48.5 % [facility] MCV 97.2 (H) 82.9 - [facility] 93.1 fL [facility] MCH 32.3 (H) 27.5 - [facility] 32.1 pg [facility] MCHC 33.2 32.0 - [facility] 35.7 g/dL [facility] Platelets 181 145 - 357 [facility] x10(3)/[facility] LABORATORY RDWSD 46.4 (H) 36.0 - [facility] 45.0 [facility] LABORATORY RDWCV 13.0 11.4 - [facility] 13.8 % [facility] MPV 10.4 7.6 - 12.9 [facility] LABORATORY nRBC % Auto 0.0 % [facility]OR[facility] nRBC Abs Auto 0.000 0.000 - [facility] 0.000 [facility] x10(3)/[facility] LABORATORY Specimen Anatomical Collection Method Collection Time Receive d Time (Source) Location / / Volume Laterality Blood 05/20/2022 5:02 AM 2 5:19 EDT AM EDT Resulting Agency Comment Spec In Lab Edward Rodríguez MD HEMATOLOGY ORDERABLES Performing Organization Address City/State/[place] [address] Heparin (unfractionated) Level (05/19/2022 3:26 AM EDT) athologist Signature Heparin UFH 0.59 IU/mL [facility] LABORATORY Comment: Heparin (anti-Xa) levels should be [...] Organization Address City/State/[place] [address] (ABNORMAL) Differential, Automated (05/19/2022 3:26 AM EDT) Patholo gist Method Time Signature Neutrophils % 62.1 % [facility] Neutr Abs (ANC) 4.59 1.70 - [facility] 6.10 [facility] x10(3)/[facility] LABORATORY Lymphocytes % 22.1 % [facility] Lymphocytes Abs 1.6 0.9 - 3.2 [facility] x10(3)/[facility] LABORATORY Monocytes % 13.5 % [facility] Monocyte Abs 1.0 (H) 0.3 - 0.9 [facility] x10(3)/[facility] LABORATORY Eosinophils % 1.3 % [facility] Eosinophils Abs 0.1 0.0 - 0.4 [facility] x10(3)/[facility] LABORATORY Basophils % 0.5 % [facility] Basophils Abs 0.0 0.0 - 0.1 [facility] x10(3)/[facility] LABORATORY Immature Gran % 0.50 % [facility] [...] Rain Gran Abs 0.04 0.00 - 0.04 x10(3)/[facility] LABORATORY Specimen Anatomical Collection Method Collection Time Receive d Time (Source) Location / / Volume Laterality Blood 05/19/2022 3:26 AM 3:59 EDT AM EDT Resulting Agency Comment Spec In Lab Edward Rodríguez MD HEMATOLOGY ORDERABLES Performing Organization Address City/State/[place] [address] (ABNORMAL) Hemogram (05/19/2022 3:26 AM EDT) Analysis Performed At Path logist Time Signature WBC 7.4 4.0 - 9.5 [facility] x10(3)/[facility] LABORATORY RBC 3.74 (L) 4.58 - [facility] 5.54 [facility] x10(6)/[facility] LABORATORY Hemoglobin 12.1 (L) 13.7 - [facility] 16.5 g/dL [facility] Hematocrit 36.4 (L) 40.5 - [facility] 48.5 % [facility] MCV 97.3 (H) 82.9 - [facility] 93.1 [facility] LABORATORY MCH 32.4 (H) 27.5 - [facility] 32.1 pg [facility] MCHC 33.2 32.0 - [facility] 35.7 g/dL [facility] Platelets 168 145 - 357 [facility] x10(3)/[facility] LABORATORY RDWSD 46.9 (H) 36.0 - [facility] 45.0 [facility] LABORATORY RDWCV 13.0 11.4 [facility] 13.8 % [facility] MPV 10.5 7.6 - 12.9 [facility] nRBC % Auto 0.0 % [facility] nRBC Abs Auto 0.000 0.000 - [facility] 0.000 [facility] x10(3)/[facility] LABORATORY Specimen Anatomical Collection Method Collection Time Receive d Time (Source) Location / / Volume Laterality Blood 05/19/2022 3:26 AM 3:59 EDT AM EDT Resulting Agency Comment Spec In Lab Edward Rodríguez MD HEMATOLOGY ORDERABLES Performing Organization Address City/State/[place] [address] TSH (05/18/2022 8:00 PM EDT) P athologist Signature TSH 2.27 0.27 - 4.20 [facility] mcIU/mL [facility] Comment: Reference Interval (mcIU/mL): Females: ??First Trimester: 0.23-3.88 ??Second Trimester: 0.22-3.90 ??Third Trimester: 0.44-4.66 Specimen Anatomical Collection Method Collection Time Receive d Time (Source) Location / / Volume Laterality Blood 05/18/2022 8:00 PM 2 8:06 EDT PM EDT Resulting Agency Comment Spec In Lab Fito Summers MD CHEMISTRY ORDERABLES Performing Organization Address City/State/ZIP Code Phon e Number [facility] [place] [address] (ABNORMAL) Differential, Automated (05/18/2022 3:34 AM EDT) [facility] gist Method Time Signature Neutrophils % 67.2 % [facility] Neutr Abs (ANC) 5.89 1.70 - [facility] 6.10 [facility] x10(3)/[facility] LABORATORY Lymphocytes % 17.1 % [facility] Lymphocytes Abs 1.5 0.9 - 3.2 [facility] x10(3)/[facility] LABORATORY Monocytes % 13.6 % [facility] Monocyte Abs 1.2 (H) 0.3 - 0.9 [facility] x10(3)/[facility] LABORATORY Eosinophils % 1.0 % [facility] Eosinophils Abs 0.1 0.0 - 0.4 [facility] x10(3)/[facility] LABORATORY Basophils % 0.6 % [facility] LABOR[facility] Basophils Abs 0.0 0.0 - 0.1 [facility] x10(3)/[facility] LABORATORY Immature Gran % 0.50 % [facility] [...] Rain Gran Abs 0.04 0.00 - 0.04 x10(3)/[facility] LABORATORY Specimen Anatomical Collection Method Collection Time Receive d Time (Source) Location / / Volume Laterality Blood 05/18/2022 3:34 AM 2 3:48 EDT AM EDT Resulting Agency Comment Spec In Lab Edward N Facciponte MD HEMATOLOGY ORDERABLES Performing Organization Address City/[facility]/[place] [address] (ABNORMAL) Hemogram (05/18/2022 3:34 AM EDT) Analysis Performed At Patho logist Time Signature WBC 8.8 4.0 - 9.5 [facility](3[facility] LABORATORY RBC 3.45 (L) 4.58 - [facility] 5.54 [facility] x10(6)/[facility] LABORATORY Hemoglobin 11.2 (L) 13.7 - [facility] 16.5 g/dL [facility]ORY Hematocrit 33.0 (L) 40.5 - [facility] 48.5 % [facility] LABORATORY MCV 95.7 (H) 82.9 - [facility] 93.1 [facility] LABORATORY MCH 32.5 (H) 27.5 - [facility] 32.1 pg [facility]ATORY MCHC 33.9 32.0 - [facility] 35.7 g/dL [facility]ORATORY Platelets 130 (L) 145 - 357 [facility] x10(3)/[facility] LABORATORY RDWSD 46.2 (H) 36.0 - [facility] 45.0 [facility] LABORATORY RDWCV 13.2 11.4 - [facility] 13.8 % [facility] LABORATORY MPV 10.8 7.6 - 12.9 [facility] LABORATORY nRBC % Auto 0.0 % [facility] LABORATORY nRBC Abs Auto 0.000 0.000 - [facility] 0.000 [facility] x10(3)/[facility] LABORATORY Specimen Anatomical Collection Method Collection Time Receive d Time (Source) Location / / Volume Laterality Blood 05/18/2022 3:34 AM 3:48 EDT AM EDT Resulting Agency Comment Spec In Lab Edward Rodríguez MD HEMATOLOGY ORDERABLES Performing Organization Address City/[facility]/[place] [address] Heparin (unfractionated) Level (05/18/2022 3:34 AM EDT) athologist Signature Heparin UFH 0.59 IU/mL [facility] LABORATORY Comment: Heparin (anti-Xa) levels should be [...] Address City/State/ZIP Code Phon e Number [address] Magnesium (05/17/2022 3:33 AM EDT) athologist Signature Magnesium 0.76 0.69 - 1.07 [facility] mmol/L [facility] LABOR[facility]ORY Specimen Anatomical Collection Method Collection Time Receive d Time (Source) Location / / Volume Laterality Blood Venous Draw / 05/17/2022 3:33 AM 05/17/20 4:05 Unknown EDT AM EDT Resulting Agency Comment Spec In Lab Dottie Hill APRN CHEMISTRY ORDERABLES Performing Organization Address City/State/ZIP Code Phon e Number [address] (ABNORMAL) Basic Metabolic Panel (non-fasting) (05/17/2022 3:33 AM EDT) athologist Signature Glucose Lvl 158 65 - 199 [facility] mg/dL [facility] Comment: Diabetes: >=200 mg/dL plus symp toms BUN 12 10 - 20 mg/dL [facility] LAB[facility]ORY Creatinine 0.74 (L) 0.80 [...] Anion Gap 10 5 - 15 mmol/L [facility] Calcium 8.4 (L) 8.5 [...] Organization Address City/State/[place] [address] (ABNORMAL) Differential, Automated (05/17/2022 3:33 AM EDT) Patholo gist Method Time Signature Neutrophils % 65.5 % [facility]OR[facility]ORY Neutr Abs (ANC) 6.84 (H) 1.70 - [facility] 6.10 [facility] x10(3)/[facility] LABORATORY Lymphocytes % 19.7 % [facility] LABORATORY Lymphocytes Abs 2.1 0.9 - 3.2 [facility] x10(3)/[facility] LABORATORY Monocytes % 13.1 % [facility] LABORATORY Monocyte Abs 1.4 (H) 0.3 - 0.9 [facility] x10(3)/[facility] LABORATORY Eosinophils % 0.6 % [facility]OR[facility]ORY Eosinophils Abs 0.1 0.0 - 0.4 [facility] x10(3)/[facility] LABORATORY Basophils % 0.6 % [facility]OR[facility]ORY Basophils Abs 0.1 0.0 - 0.1 [facility] x10(3)/[facility] LABORATORY Immature Gran % 0.50 % [facility] [...] Gran Abs 0.05 (H) 0.00 - 0.04 x10(3)/[facility] LABORATORY Specimen Anatomical Collection Method Collection Time Receive d Time (Source) Location / / Volume Laterality Blood 05/17/2022 3:33 AM 2 3:53 EDT AM EDT Resulting Agency Comment Spec In Lab Edward Rodríguez MD HEMATOLOGY ORDERABLES Performing Organization Address City/State/[place] [address] (ABNORMAL) Hemogram (05/17/2022 3:33 AM EDT) Analysis Performed At [facility] logist Time Signature WBC 10.4 (H) 4.0 - 9.5 [facility] x10(3)/[facility] LABORATORY RBC 3.72 (L) 4.58 - [facility] 5.54 [facility] x10(6)/[facility] LABORATORY Hemoglobin 12.0 (L) 13.7 - [facility] 16.5 g/dL [facility]ORY Hematocrit 36.4 (L) 40.5 - [facility] 48.5 % [facility] LABORATORY MCV 97.8 (H) 82.9 - [facility] 93.1 [facility] LABORATORY MCH 32.3 (H) 27.5 - [facility] 32.1 pg [facility] LABORATORY MCHC 33.0 32.0 - [facility] 35.7 g/dL [facility] LABORATORY Platelets 149 145 - 357 [facility] x10(3)/[facility] LABORATORY RDWSD 48.7 (H) 36.0 - [facility] 45.0 [facility] RDWCV 13.5 11.4 - [facility] 13.8 % [facility] LABORATORY MPV 10.6 7.6 - 12.9 [facility] LABORATORY nRBC % Auto 0.0 % [facility] LABORATORY nRBC Abs Auto 0.000 0.000 - [facility] 0.000 [facility] x10(3)/[facility] LABORATORY Specimen Anatomical Collection Method Collection Time Receive d Time (Source) Location / / Volume Laterality Blood 05/17/2022 3:33 AM 3:53 EDT AM EDT Resulting Agency Comment Spec In Lab Edward Rodríguez MD HEMATOLOGY ORDERABLES Performing Organization Address City/State/[place] [address] (ABNORMAL) Urinalysis Microscopic Exam [...] Address City/State/ZIP Code Phon e Number [address] (ABNORMAL) Urinalysis with reflex Culture (05/16/2022 11:15 PM EDT) Patholo gist Method Time Signature Glucose UA Negative Negative [facility] mg/dL [facility] LABORATORY Protein UA Negative Negative [facility] mg/dL [facility] LABORATORY Bilirubin UA Negative Negative [facility]/dL [facility] LABORATORY Comment: Clinical correlation required for positi ve Urine Bilirubin results as false positive may occur with some drugs and d rug related products. If a false positive is suspected a serum total bili quarles should be considered if clinically indicated. Urobilinogen UA Normal Normal mg/dL [facility] LABORATORY pH UA 6.0 5.0 - 8.0 [facility] LABORATORY Blood UA Small (A) Negative mg/dL [facility] LABOR[facility]ORY Ketones UA Trace (A) Negative mg/dL [facility] LABOR[facility]ORY Nitrite UA Negative Negative [facility] LABORATORY Leukocytes UA Negative Negative [facility] LABORATORY Appearance UA Clear Clear [facility] LABORATORY Spec [place] UA 1.021 1.005 - 1.030 [facility] LABORATORY Color UA Yellow Yellow [facility] LABOR[facility] Culture Reflexed No [facility] LABORATORY Specimen Anatomical Collection Method Collection Time Receive d Time (Source) Location / / Volume Laterality Clean Catch 05/16/2022 11:15 05/16/2022 Urine PM EDT 11:30 PM EDT Resulting Agency Comment Spec In Lab Fito Summers MD URINE ORDERABLES Performing Organization Address City/[facility]/[place] [address] Heparin (unfractionated) Level (05/16/2022 [...] Organization Address City/State/[place] [address] XR Chest One View [...] who have questions please contact the health livestock caretaker that requested your imaging first. ? Electronically signed by: Tiffanie George MD , [facility] ([phone]), at 05/16/2022 9:27 PM Narrative 05/16/2022 9:27 [...] ho have questions please contact the health livestock caretaker that requested your imaging first. Electronically signed by: Tiffanie George MD , [facility] ([phone]), at 05/16/2022 9:27 PM Fito Summers MD IMG DX ORDERABLES EKG 12 Lead (05/16/2022 8:57 PM EDT) Component Value Ref Range Test Analysis Performed Pathologis t Method Time At Signature Ventricular rate 117 BPM MUSE SYSTEM QRS Duration 112 ms MUSE SYSTEM Q-T Interval 346 ms MUSE SYSTEM QTC Calculated 482 ms MUSE SYSTEM (Bezet) Calculated R [place] -48 degrees MUSE SYSTEM Calculated T [place] 111 degrees MUSE SYSTEM INTERPRETATION Atrial fibrillation [...] EDT) athologist Signature Heparin UFH 0.53 IU/mL [facility] LABORATORY Comment: Heparin (anti-Xa) levels should be [...] Organization Address City/State/[place] [address] ECHOCARDIOGRAM COMPLETE W CONTRAST (05/16/2022 12:49 PM EDT) athologist Signature EF 28 HEARTLAB SYSTEM Anatomical Region Laterality Modality Cardiac Other Specimen (Source) Anatomical Collection Method Collection Time Re ceived Time Location / / Volume Laterality 05/16/2022 11:22 AM EDT Narrative 05/16/2022 1:54 PM EDT ?[facility] ?[address] ? [place] [address] ?Voice: ?Fax: ? Echocardiogram Report Name: KOKO ZAMORA ?Study Date: 05/16/2022 11:22 AM ? Patient Location: 3T 0303 B : 1940 ? Height: 67.5 in ? Account: [id number] Age: 81 yrs ? Weight: 176 lb Gender: Male ?BSA: 1.9 m2 Ordering Physician: FITO SUMMERS Referring Physician: MALI FLORIAN Performed By: Jolene Bernard RDCS Exam Location: [facility]. Interpretation Summary Left ventricle is [...] and LV systolic dysfunction are new. Procedure Complete-[id number]. Image enhancement Optiso n was used for [...] might be different from the original. [facility] [address] [place] [address] Voice: Fax: Echocardiogram Report Name: KOKO ZAMORA Study Date: 05/2022 11:22 AM Patient Location: [address] [place] [address] : 1940 Height: 67.5 in Account: [id number] Age: 81 yrs Weight: 176 lb Gender: Male BSA: 1.9 m2 Ordering Physician: FITO SUMMERS Referring Physician: MALI FLORIAN Performed By: Jolene Bernard RDCS Exam Location: [facility]. Interpretation Summary Left ventricle is [...] and LV systolic dysfunction are new. Procedure Complete-[id number]. Image enhancement Optiso n was used for [...] (ABNORMAL) Differential, Automated (05/16/2022 3:01 AM EDT) [facility] Method Time Signature Neutrophils % 78.8 % [facility] Neutr Abs (ANC) 9.11 (H) 1.70 - [facility] 6.10 [facility] x10(3)/[facility] LABORATORY Lymphocytes % 9.4 % [facility] Lymphocytes Abs 1.1 0.9 - 3.2 [facility] LABORATORY Monocytes % 10.9 % [facility] Monocyte Abs 1.3 (H) 0.3 - 0.9 [facility] x10(3)/[facility] LABORATORY Eosinophils % 0.0 % [facility] Eosinophils Abs 0.0 0.0 - 0.4 [facility] x10(3)/[facility] LABORATORY Basophils % 0.3 % [facility] Basophils Abs 0.0 0.0 - 0.1 [facility] x10(3)/[facility] LABORATORY Immature Gran % [...] Gran Abs 0.07 (H) 0.00 - 0.04 x10(3)/[facility] LABORATORY Specimen Anatomical Collection Method Collection Time Receive d Time (Source) Location / / Volume Laterality Blood 05/16/2022 3:01 AM 3:36 EDT AM EDT Resulting Agency Comment Spec In Lab Erin Garza MD HEMATOLOGY ORDERABLES Performing Organization Address City/State/[place] [address] (ABNORMAL) Hemogram (05/16/2022 3:01 AM EDT) Analysis Performed At Patho logist Time Signature WBC 11.6 (H) 4.0 - 9.5 [facility] x10(3)/[facility] LABORATORY RBC 3.62 (L) 4.58 - [facility].54 [facility] x10(6)/[facility] LABORATORY Hemoglobin 12.0 (L) 13.7 [facility] g/dL [facility] Hematocrit 35.3 (L) 40.5 - [facility] 48.5 % [facility] MCV 97.5 (H) 82.9 - [facility] 93.1 fL [facility] LABORATORY MCH 33.1 (H) 27.5 - [facility] 32.1 pg [facility] LABORATORY MCHC 34.0 32.0 - [facility] 35.7 g/dL [facility] LABOR[facility]ORY Platelets 151 145 - 357 [facility] x10(3)/[facility] LABORATORY RDWSD 47.6 (H) 36.0 - [facility] 45.0 [facility] LABORATORY RDWCV 13.3 11.4 - [facility] 13.8 % [facility] LABORATORY MPV 10.5 7.6 - 12.9 [facility] LABORATORY nRBC % Auto 0.0 % [facility] nRBC Abs Auto 0.000 0.000 - [facility] 0.000 [facility] x10(3)/[facility] LABORATORY Specimen Anatomical Collection Method Collection Time Receive d Time (Source) Location / / Volume Laterality Blood 05/16/2022 3:01 AM 2 3:36 EDT AM EDT Resulting Agency Comment Spec In Lab Erin Garza MD HEMATOLOGY ORDERABLES Performing Organization Address City/[facility]/[place] [address] Phosphorus (05/16/2022 3:01 AM EDT) athologist Signature Phosphorus 3.7 2.5 - 4.[address] [facility] mg/dL [facility] LABORATORY Specimen Anatomical Collection Method Collection Time Receive d Time (Source) Location / / Volume Laterality Blood 05/16/2022 3:01 AM 2 3:36 EDT AM EDT Resulting Agency Comment Spec In Lab Fito Summers MD CHEMISTRY ORDERABLES Performing Organization Address City/[facility]/ZIP Code Phon e Number [address] Magnesium (05/16/2022 3:01 AM EDT) P athologist Signature Magnesium 0.77 0.69 - 1.[address] mmol/L [facility] LABORATORY Specimen Anatomical Collection Method Collection Time Receive d Time (Source) Location / / Volume Laterality Blood 05/16/2022 3:01 AM 2 3:36 EDT AM EDT Resulting Agency Comment Spec In Lab Fito Summers MD CHEMISTRY ORDERABLES Performing Organization Address City/[facility]/[place] [address] (ABNORMAL) Basic Metabolic Panel (non-fasting) (05/16/2022 3:01 AM EDT) P athologist Signature Glucose Lvl 222 (H) 65 - 199 [facility] mg/dL [facility] LABORATORY Comment: Diabetes: >=200 mg/dL plus symp toms BUN 12 10 - 20 mg/dL [facility] LABORATORY Creatinine 0.66 (L) 0.80 [...] Anion Gap 8 5 - 15 mmol/L [facility] Calcium 8.2 (L) 8.5 [...] Organization Address City/State/[place] [address] (ABNORMAL) BLOOD GAS 2 ARTERIAL (05/15/2022 3:33 PM EDT) Analysis Performed At Patho logist Time Signature pH Art 7.33 (L) 7.35 - [facility] 7.45 [facility] LABORATORY pCO2 Art 41 35 - 45 [facility] LABORATORY pO2 Art 131 (H) 85 - 104 [facility] LABORATORY HCO3 Art 21.1 20.0 - [facility] 26.0 [facility] mmol/L [facility] LABORATORY BE Art -4.8 (L) -3.0 - 3.0 [facility] mmol/L [facility] LABORATORY Hgb Blood Gas 13.4 (L) 13.7 - [facility] 16.5 g/dL [facility] LABORATORY O2HB Art 96.9 94.0 - [facility] 97.0 % [facility] LABORATORY COHB Art 1.4 % [facility] [...] Whole Bld 136 65 - 199 mg/dL [facility] Comment: Diabetes: >=200 mg/dL plus symp toms. Lactate WB 2.0 0.5 - 2.2 mmol/L [facility] LABOR[facility]ORY Specimen Anatomical Collection Method Collection Time Receive d Time (Source) Location / / Volume Laterality Blood 05/15/2022 3:33 PM 2 3:[address] Jamel Torre MD CHEMISTRY ORDERABLES Performing Organization Address City/State/[place] [address] (ABNORMAL) BLOOD GAS 2 ARTERIAL (05/15/2022 2:06 PM EDT) Analysis Performed At Patho logist Time Signature pH Art 7.39 7.35 - [facility] 7.45 [facility] LABORATORY pCO2 Art 35 35 - 45 [facility] mmHg [facility] LABORATORY pO2 Art 135 (H) 85 - 104 [facility] LABORATORY HCO3 Art 20.8 20.0 - [facility] 26.0 [facility] mmol/[facility] LABORATORY BE Art -4.2 (L) -3.0 - 3.0 [facility] mmol/L [facility] LABORATORY Hgb Blood Gas 14.5 13.7 - [facility] 16.5 g/dL [facility] O2HB Art 97.2 (H) 94.0 - [facility] 97.0 % [facility] LABORATORY COHB Art 1.2 % [facility] Comment: Nonsmokers: 0.5-1.5% COHB Smokers: Variable, but usually less than 10% Toxic: 20-30% COHB Lethal: Greater than 60% COHB METHB Art 0.3 <=1.5 % [facility] LABORAT[facility] Na Whole Blood 140 135 [...] Blood 109 (H) 98 - 107 mmol/L [facility] Gluc Whole Bld 152 65 - 199 mg/dL [facility] Comment: Diabetes: >=200 mg/dL plus symp toms. Lactate WB 1.5 0.5 - 2.2 mmol/L [facility]OR[facility] Specimen Anatomical Collection Method Collection Time Receive d Time (Source) Location / / Volume Laterality Blood 05/15/2022 2:06 PM 2 2:[address] Jamel Torre MD CHEMISTRY ORDERABLES Performing Organization Address City/[facility]/ZIP Code Phon e Number [place] [id number] HOSPITAL LABORATORY Drive (ABNORMAL) Prothrombin Time (05/15/2022 12:30 PM EDT) P athologist Signature PT 12.9 (H) 9.4 - 12.5 [facility] LABORATORY INR 1.1 [facility] [...] Morales DO HEMATOLOGY ORDERABLES Performing Organization Address City/[facility]/[place] [address] (ABNORMAL) APTT (05/15/2022 12:30 [...] Jhonny Morales HEMATOLOGY ORDERABLES Performing Organization Address City/[facility]/[place] [address] Gold Tube HOLD (05/15/2022 12:20 PM EDT) P athologist Signature Gold Hold Sample in [facility] LABORATORY Specimen Anatomical Collection Method Collection Time Receive d Time (Source) Location / / Volume Laterality Blood No Charge / 05/15/2022 12:20 05/15/2022 Unknown PM EDT 12:20 PM EDT Lc TRIPP CHEMISTRY ORDERABLES Performing Organization Address City/[facility]/[place] [address] Type and Screen Validity (05/15/2022 12:00 PM EDT) [facility] Method Time Signature T&S only valid [facility] LABORATORY Comment: This Type and Screen result is only valid at the [facility] Specimen Anatomical Collection Method Collection Time Receive d Time (Source) Location / / Volume Laterality Blood 05/15/2022 12:00 05/15/2022 PM EDT 12:17 PM EDT Resulting Agency Comment Spec In Lab Lc TRIPP BLOOD BANK ORDERABLES Performing Organization Address City/[facility]/ZIP Code Phon e Number [address] ABORH Recheck Status (05/15/2022 12:00 PM EDT) [facility] Method Time Signature ABORH Recheck Order Placed [facility] LABORATORY ABORH Type Complete [facility] LABORATORY Specimen Anatomical Collection Method Collection Time Receive d Time (Source) Location / / Volume Laterality Blood 05/15/2022 12:00 05/15/2022 PM EDT 12:17 PM EDT Resulting Agency Comment Spec In Lab Lc TRIPP BLOOD BANK ORDERABLES Performing Organization Address City/State/[place] [address] CK (05/15/2022 12:00 PM EDT) P athologist Signature CK, Total 87 0 - 200 [facility] unit/L [facility] LABORATORY Specimen Anatomical Collection Method Collection Time Receive d Time (Source) Location / / Volume Laterality Blood Venous Draw / 05/15/2022 12:00 05/15/2022 Unknown PM EDT 12:19 PM EDT Resulting Agency Comment Spec In Lab Fito Summers MD CHEMISTRY ORDERABLES Performing Organization Address City/[facility]/[place] [address] Antibody screen (05/15/2022 12:00 PM EDT) [facility] gist Method Time Signature Ab Screen Negative [facility] LABORATORY Expires at 05/18/2022 [facility] [id number] on: [facility] LABORATORY Specimen Anatomical Collection Method Collection Time Receive d Time (Source) Location / / Volume Laterality Blood 05/15/2022 12:00 05/15/2022 PM EDT 12:17 PM EDT Resulting Agency Comment Spec In Lab Lc Dominick Kimberly TRIPP BLOOD BANK ORDERABLES Performing Organization Address City/[facility]/[place] [address] ABO/Rh Typing (05/15/2022 12:00 PM EDT) P athologist Signature ABORh Type O Pos [facility] Specimen Anatomical Collection Method Collection Time Receive d Time (Source) Location / / Volume Laterality Blood 05/15/2022 12:00 05/15/2022 PM EDT 12:17 PM EDT Resulting Agency Comment Spec In Lab Lc Dominick Kimberly TRIPP BLOOD BANK ORDERABLES Performing Organization Address City/[facility]/[place] [address] (ABNORMAL) Differential, Automated (05/15/2022 12:00 PM EDT) [facility] Method Time Signature Neutrophils % 79.4 % [facility] Neutr Abs (ANC) 7.49 (H) 1.70 - [facility] 6.10 [facility] x10(3)/[facility] LABORATORY Lymphocytes % 11.3 % [facility] Lymphocytes Abs 1.1 0.9 - 3.2 [facility] x10(3)/[facility] LABORATORY Monocytes % 7.8 % [facility] Monocyte Abs 0.7 0.3 - 0.9 [facility] x10(3)/[facility] LABORATORY Eosinophils % 0.6 % [facility] Eosinophils Abs 0.1 0.0 - 0.4 [facility] x10(3)/[facility] LABORATORY Basophils % 0.6 % [facility] Basophils Abs 0.1 0.0 - 0.1 [facility] x10(3)/[facility] LABORATORY Immature Gran % 0.30 % [facility] [...] Rain Gran Abs 0.03 0.00 - 0.04 x10(3)/[facility] LABORATORY Specimen Anatomical Collection Method Collection Time Receive d Time (Source) Location / / Volume Laterality Blood 05/15/2022 12:00 05/15/2022 PM EDT 12:19 PM EDT Resulting Agency Comment Spec In Lab Lc TRIPP HEMATOLOGY ORDERABLES Performing Organization Address City/State/[place] [address] (ABNORMAL) Hemogram (05/15/2022 12:00 PM EDT) Analysis Performed At [facility] logist Time Signature WBC 9.4 4.0 - 9.5 [facility] x10(3)/[facility] LABORATORY RBC 4.48 (L) 4.58 - [facility] 5.54 [facility] x10(6)/[facility] LABORATORY Hemoglobin 14.5 13.7 - [facility] g/dL [facility] LABORATORY Hematocrit 42.4 40.5 - [facility] 48.5 % [facility] LABORATORY MCV 94.6 (H) 82.9 [facility] 93.1 [facility] LABORATORY MCH 32.4 (H) 27.5 - [facility] 32.1 pg [facility] LABORATORY MCHC 34.2 32.0 - [facility] 35.7 g/dL [facility] LABORATORY Platelets 209 145 - 357 [facility] x10(3)/[facility] LABORATORY RDWSD 45.9 (H) 36.0 - [facility] 45.0 [facility] LABORATORY RDWCV 13.1 11.4 [facility] 13.8 % [facility] LABORATORY MPV 10.5 7.6 - 12.9 [facility] LABORATORY nRBC % Auto 0.0 % [facility] LABORATORY nRBC Abs Auto 0.000 0.000 - [facility] 0.000 [facility] x10(3)/[facility] LABORATORY Specimen Anatomical Collection Method Collection Time Receive d Time (Source) Location / / Volume Laterality Blood 05/15/2022 12:00 05/15/2022 PM EDT 12:19 PM EDT Resulting Agency Comment Spec In Lab Lc TRIPP HEMATOLOGY ORDERABLES Performing Organization Address City/State/[place] [address] (ABNORMAL) Basic Metabolic Panel (non-fasting) (05/15/2022 12:00 PM EDT) athologist Signature Glucose Lvl 203 (H) 65 - 199 [facility] mg/dL [facility] LABORATORY Comment: Diabetes: >=200 mg/dL plus symp toms BUN 16 10 - 20 mg/dL [facility] LABORATORY Creatinine 0.84 0.80 - 1.50 mg/dL [facility] LABORATORY Sodium 141 135 - 145 [...] Anion Gap 11 5 - 15 mmol/L [facility] LABORATORY Calcium 8.5 8.5 - [...] Organization Address City/State/[place] [address] documented in this encounter [...] (Given - Provider: Barbie Joyce , RN)1750 ([facility] Hold - Provider: Admin Adt - Reason: Transfer to a Procedural area)1955 ([facility] Unhold - Provider: Admin Adt) 15 (Given - Provider: Etta contreras RN) 1,000 mcg, Oral, DAILY, First dose on 05/16/22 at 0900, Until Discontinued, Routine metoprolol tartrate (Lopressor) tablet 12.5 mg (CANCEL ED) 0838 (Given - Provider: Caroline Zamora, DION)2008 (Given - Provider: Nuris Lester RN) 0853 (Given - Provider: Barbie Joyce RN)1750 ([facility] Hold - Provider: Admin Adt - Reason: Transfer to a Procedural area)1955 ([facility] Unhold - Provider: Admin Adt)2004 (Given [...] (Given - Provider: Barbie Joyce , DION)1750 ([facility] Hold - Provider: Admin Adt - Reason: Transfer to a Procedural area)1955 ([facility] Unhold - Provider: Admin Adt) 0816 [...] 0853 (Given - Provider: Barbie Joyce RN)1750 ([facility] Hold - Provider: Admin Adt - Reason: Transfer to a Procedural area)1955 ([facility] Unhold - Provider: Admin Adt) 0817 (Given - Provider: Etta contreras RN) 0.4 mg, Oral, DAILY, First dose on Fri at 0900, Until Discontinued, DO NOT CRUSH OR OPEN, Routine thiamine (Vitamin B1) tablet 100 mg 0838 (Given - Prov ider: Caroline Zamora RN) 0853 (Given - Provider: Barbie Joyce RN)1750 ([facility] Hold - Provider: Admin Adt - Reason: Transfer to a Procedural area)1955 ([facility] Unhold - Provider: Admin Adt) 0816 (Given - Provider: Etta contreras RN) 100 mg, Oral, DAILY, First dose on Fri at 0900, Until Discontinued, Routine valsartan (Diovan) tablet 40 mg 0838 (Given - Provider : Caroline Zamora, DION)2008 (Given - Provider: Nuris Lester RN) 0853 (Given - Provider: Barbie Joyce RN)1750 ([facility] Hold - Provider: Admin Adt - Reason: Transfer to a Procedural area)1955 ([facility] Unhold - Provider: Admin Adt)2005 (Given [...] - Reason: Transfer to a Procedural area)1955 ([facility] Unhold - Provider: Admin Adt) 5-10 [...]
Routine documented in this encounter Care Teams Molding Technician Relationship Specialty Start Date End Date Bobby Das MD PCP - General 10/02/[address] [place] [address] [place] [phone] documented as of this encounter
--- OUTSIDE RECORDS SUMMARY | 2022-07-19 13:20 | XMS_ITS | Encounter Summary ---
:1940 Author Organization [facility] [place] [address] Care Team Providers Name Role Phone Bobby Das MD Primary Care Provider Encounter Details Date Type Department Care Team Description 05/13/2018 Ancillary Procedure Radiology Library at Bobby Almaguer MD [facility] [address] [place] [phone] (Wo rk) Social History Tobacco Use Types Packs/Day Years Used Date Current Some Day Smoker 1 50 Smokeless Tobacco: Never Used Sex Assigned at Date Recorded Not on file documented as of this encounter Plan of Treatment Upcoming Encounters Date Type Specialty Care Team Description 08/08/2022 Office Visit Gastroenterology Negra Collins MD [facility] DR GASTROENTEROLOGY DEPT [place], [place] [address] (Wo rk) 09/05/2022 Appointment Cardiology Trinity Reid MD [facility] CARDIOLOGY [place], [place] [address] (Wo rk) 09/05/2022 Office Visit Cardiology Trinity Reid MD [facility] CARDIOLOGY [place], [place] [address] (Wo rk) documented as of [...] Organization Address City/State/ZIP Code Phon e Number [place], [place] documented in this encounter Visit Diagnoses Not on filedocumented in this encounter Care Teams Pad Hand Relationship Specialty Start Date End Date Bobby Das MD PCP - General 10/02/[address] [place] [address] [place] [phone] documented as of this encounter
--- OUTSIDE RECORDS SUMMARY | 2022-07-19 13:20 | XMS_ITS | Encounter Summary ---
:1940 Author Organization [facility] [place] [address] Care Team Providers Name Role Phone Bobby Das MD Primary Care Provider Encounter Details Date Type Department Care Team Description 08/06/2020 Ancillary Procedure Radiology at [facility] Amy Grimaldo [address] [place] [address] 10 [address] AJY [phone] NEUROSURGERY-N Jovanny [place], [place] [address] Social History Tobacco Use Types [...] MD [facility] GASTROENTEROLOGY DEPT [place], [place] [address] (Wo rk) 09/05/2022 Appointment Cardiology Trinity Reid MD [facility] CARDIOLOGY [place], [place] [address] (Wo rk) 09/05/2022 Office Visit Cardiology Trinity Reid MD [facility] CARDIOLOGY [place], [place] [address] (Wo rk) documented as of [...] Organization Address City/State/ZIP Code Phon e Number [place], [place] documented in this encounter Visit Diagnoses Not on filedocumented in this encounter Care Teams Manager Community Outreach Relationship Specialty Start Date End Date Bobby Das MD PCP - General 10/02/[address] [place] [address] [place] [phone] documented as of this encounter
--- OUTSIDE RECORDS SUMMARY | 2022-07-19 13:20 | XMS_ITS | Encounter Summary ---
:1940 Author Organization [facility] [place] [address] Care Team Providers Name Role Phone Bobby Das MD Primary Care Provider Encounter Details Date Type Department Care Team Description 09/06/2020 Ancillary Procedure Radiology at [facility] Amy Grimaldo [address] [place] [address] 10 LITTLE JAY [phone] NEUROSURGERY-N Jovanny [place], [place] [address] Social History Tobacco Use Types [...] Collins MD [facility] GASTROENTEROLOGY DEPT [place], [place] [address] (Wo rk) 09/05/2022 Appointment Cardiology Trinity Reid MD [facility] CARDIOLOGY [place], [place] [address] (Wo rk) 09/05/2022 Office Visit Cardiology Trinity Reid MD [facility] CARDIOLOGY [place], [place] [address] (Wo rk) documented as of [...] Organization Address City/State/ZIP Code Phon e Number [place], [place] documented in this encounter Visit Diagnoses Not on filedocumented in this encounter Care Teams Hematology Nurse Relationship Specialty Start Date End Date Bobby Das MD PCP - General 10/02/[address] [place] [address] [place] [phone] documented as of this encounter
--- OUTSIDE RECORDS SUMMARY | 2022-07-19 13:20 | XMS_ITS | Encounter Summary ---
:1940 Author Organization [facility] [place] [address] Care Team Providers Name Role Phone Bobby Das MD Primary Care Provider Encounter Details Date Type Department Care Team Description 12/20/2016 Telephone Pain Management at [facility] Kristin Schultz, [facility] [place] [address] Social History Tobacco Use Types Packs/Day Years Used Date Current Some Day Smoker 1 50 Smokeless Tobacco: Never Used Sex Assigned at Date Recorded Not on file documented as of this encounter Miscellaneous Notes Telephone Encounter - Kristin Schultz LPN - 12/20/2016 11:02 AM EST Pt called requesting that the Referral to Hematology and Oncology be sent to [facility] [place] to [place]. Will Follow up up with the pain clinic after appointment. documented in this encounter Plan of Treatment Upcoming Encounters Date Type Specialty Care Team Description 08/08/2022 Office Visit Gastroenterology Negra Collins MD [facility] GASTROENTEROLOGY DEPT [place], [place] [address] (Wo rk) 09/05/2022 Appointment Cardiology Trinity Reid MD [facility] CARDIOLOGY [place], [place] [address] (Wo rk) 09/05/2022 Office Visit Cardiology Trinity Reid MD [facility] CARDIOLOGY [place], [place] [address] (Wo rk) documented as of this encounter Visit Diagnoses Not on filedocumented in this encounter Care Teams Lithoduplicator Operator Relationship Specialty Start Date End Date Bobby Das MD PCP - General 10/02/[address] [place] [address] [place] [address] documented as of this encounter
--- OUTSIDE RECORDS SUMMARY | 2022-07-19 13:20 | XMS_ITS | Encounter Summary ---
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, sequela Closed compression fracture of L1 lumbar vertebra with delayed healing, subsequent encounter Malignant neoplasm of prostate Zbigniew Thompson PA [facility] Interventionl Rad Procedures IR Vertebroplasty Lumbar Multiple Levels IR Vertebral Augmentation Lumbar Single Level [facility] [place] [address] [place] [address] Fax: Referral ID Status Reason Start Date Expiration Date Visits V isits Requested Authorized [id number] Closed Specialty 07/13/2019 07/12/2020 1 1 Service Requested iagnostic Test (Routine) - Closed Specialty Diagnoses / Procedures Referred By Contact Refer red To Contact Radiology Diagnoses Closed compression fracture of L1 lumbar vertebra with delayed healing, subsequent encounter Malignant neoplasm of prostate Zbigniew Thompson PA [facility] Interventionl Rad Procedures [place] [address] [place] [address] Fax: Referral ID Status Reason Start Date Expiration Date Visits V isits Requested Authorized [id number] Closed Specialty 07/13/2019 07/12/2020 1 1 Service Requested Reason for Visit Reason Comments Back Pain Consultation (ANDREINA) - Closed Specialty Diagnoses / Procedures Referred By Contact Refer red To Contact [facility] Diagnoses Collapsed vertebra, not elsewhere classified, lumbar region, subsequent encounter for fracture with routine healing Bobby Das MD [facility] [address] [place], [place] [address] [address] [place] [address] Phone: Fax: Referral ID Status Reason Start Date Expiration Date Visits V isits Requested Authorized [id number] Closed Consult, 06/30/2019 06/29/2020 1 1 [facility] Treat [facility] Encounter Details Date Type Department Care Team Description 07/13/2019 Office Visit [facility] Zbigniew Thompson, Closed compression fracture of L1 lumbar vertebra with delayed healing, subsequent encounter; at [facility] Malignant neoplasm of prostate; [facility] Age -related 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, sequela [address] [place] [phone] Social History Tobacco Use Types Packs/Day Years [...] Negra Collins MD [facility] DR GASTROENTEROLOGY DEPT [place], [place] [address] (Wo rk) 09/05/2022 Appointment Cardiology Trinity Reid MD [facility] CARDIOLOGY [place], [place] [address] (Wo rk) 09/05/2022 Office Visit Cardiology Trinity Reid MD [facility] CARDIOLOGY [place], [place] [address] (Wo rk) documented as of [...] made and a 13g a introducer needle (Stealth10) was advanced through the right pedicle and [...] made an d a 13ga introducer needle (Stealth10) was advanced through the left pedicle and [...] ? Electronically signed by: Bobby Sullivan MD, [facility] ([phone]), at 07/20/2019 1:20 PM Procedure Note Bobby [...] made and a 13g a introducer needle (Stealth10) was advanced through the right pedicle and [...] made an d a 13ga introducer needle (Stealth10) was advanced through the left pedicle and [...] made and a 13g a introducer needle (Stealth10) was advanced through the right pedicle and [...] made an d a 13ga introducer needle (Stealth10) was advanced through the left pedicle and [...] ? Electronically signed by: Bobby Sullivan MD, [facility] ([phone]), at 07/20/2019 1:20 PM Procedure Note Bobby [...] made and a 13g a introducer needle (Stealth10) was advanced through the right pedicle and [...] made an d a 13ga introducer needle (Stealth10) was advanced through the left pedicle and [...] below. Electronically signed by: Bobby Sullivan MD, [facility] ([phone]), at 07/20/2019 1:20 PM Elmer Loya MD [...] sequela documented in this encounter Care Teams Salesperson Books Relationship Specialty Start Date End Date Bobby Das MD PCP - General 10/02/[address] [place] [address] [place] [phone] documented as of this encounter
--- OUTSIDE RECORDS SUMMARY | 2022-07-19 13:20 | XMS_ITS | Encounter Summary ---
:1940 Author Organization [place] [address] Care Team Providers Name Role Phone Bobby Das MD Primary Care Provider Reason for Referral Diagnostic Test (Routine) - Specialty Diagnoses / Procedures Referred By Contact Refer ramila To Contact Radiology Diagnoses Chest pain, unspecified type Chronic abdominal pain Chano Rebolledo MD [facility] Rad Ct Scan Procedures CT Chest w Contrast CT Chest wo Contrast (Generic) [facility] [place] [address] [place] [address] Referral ID Status Reason Start Date Expiration Visits Visits Date Requested Authorized [id number] Specialty 12/13/2016 12/13/2017 1 1 Service Requested Consultation (Routine) - Closed Specialty Diagnoses / Procedures Referred By Contact Refer ramila To Contact Neurology Diagnoses Radiculopathy of cervical region Chano Rebolledo MD [facility] [address] [facility] [place] [address] [place] [address] Referral ID Status Reason Start Date Expiration Date Visits V isits Requested Authorized [id number] Closed Test Only 12/13/2016 12/13/2017 1 1 Diagnostic Test (Routine) - Closed Specialty Diagnoses / Procedures Referred By Contact Refer red To Contact Radiology Diagnoses Chest pain, unspecified type Chronic abdominal pain Chano Rebolledo MD [facility] Rad Ct Scan Procedures CT Abdomen & Pelvis w Contrast [facility] [place] [address] [place] [address] Referral ID Status Reason Start Date Expiration Date Visits V isits Requested Authorized [id number] Closed Specialty 12/13/2016 12/13/2017 1 1 Service Requested Reason for Visit Reason Comments Pain Management Neck Pain Bilateral Arm Pain burning across sternum and r ibs, both sides Consultation (Routine) - Closed Specialty Diagnoses / Procedures Referred By Contact Refer red To Contact Pain Management Diagnoses cervical radiculopathy Bobby aDs MD [facility] [address] [place] [address] [address] [place], [place] [address] [address] [place] [address] Fax: Referral ID Status Reason Start Date Expiration Date Visits V isits Requested Authorized [id number] Closed Consult, 11/22/2016 11/22/2017 1 1 Test & Treat Encounter Details Date Type Department Care Team Description 12/13/2016 Office Visit Pain Management at [facility], Chest adrianna n, unspecified type; Jose Sullivan MD Chronic abdominal pain; [facility] Radiculop athy of cervical region [facility] [address] [place] [place], [place] [address] [place] [address] Social History Tobacco Use Types [...] Rebolledo MD - 12/13/2016 1:00 PM EST [facility] [place] [address] Phone: PAIN MANAGEMENT NEW PATIENT / CONSULTATION NOTE DATE OF VISIT 12/13/2016 Patient Koko Zamora 1940 REFERRING PROVIDER Bobby Das MD [address] [place] [address] [place] [address] PRIMARY CARE PROVIDER Bobby Das MD CHIEF [...] Aspirin Other (See Comments) 06/28/2011 MEDICATIONS The ID and [place] Prescription Monitoring Program were checked & no [...] restless FUNCTIONAL /SOCIAL Lives with: 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 Follow up: -Patient will be called after results are obtained. Koko J Zamora had the opportunity to ask questions and indicated that all questions were answered to his satisfaction. Thank you for this referral, Bobby Das MD [address] [place] [address]. Chano Rebolledo MD Leonel Orozco MD - [...] Negra Collins MD [facility] DR GASTROENTEROLOGY DEPT [place], [place] [address] (Wo rk) 09/05/2022 Appointment Cardiology Trinity Reid MD [facility] CARDIOLOGY [place], [place] [address] (Wo rk) 09/05/2022 Office Visit Cardiology Trinity Reid MD [facility] CARDIOLOGY [place], [place] [address] (Wo rk) Scheduled [...] site documented in this encounter Care Teams Laboratory Coordinator Relationship Specialty Start Date End Date Bobby Das MD PCP - General 10/02/[address] [place] [address] [place] [phone] documented as of this encounter
--- OUTSIDE RECORDS SUMMARY | 2022-07-19 13:20 | XMS_ITS | Encounter Summary ---
:1940 Author Organization [facility] [place] [address] Care Team Providers Name Role Phone Bobby Das MD Primary Care Provider Encounter Details Date Type Department Care Team Description 06/26/2018 Ancillary Procedure Radiology Library at Bobby Almaguer MD [facility] [address] [place] [phone] (Wo rk) Social History Tobacco Use Types Packs/Day Years Used Date Current Some Day Smoker 1 50 Smokeless Tobacco: Never Used Sex Assigned at Date Recorded Not on file documented as of this encounter Plan of Treatment Upcoming Encounters Date Type Specialty Care Team Description 08/08/2022 Office Visit Gastroenterology Negra Collins MD [facility] DR GASTROENTEROLOGY DEPT [place], [place] [address] (Wo rk) 09/05/2022 Appointment Cardiology Trinity Reid MD [facility] CARDIOLOGY [place], [place] [address] (Wo rk) 09/05/2022 Office Visit Cardiology Trinity Reid MD [facility] CARDIOLOGY [place], [place] [address] (Wo rk) documented as of [...] on filedocumented in this encounter Care Teams Drill Foreman Relationship Specialty Start Date End Date Bobby Das MD PCP - General 10/02/[address] [place] [address] [place] [address] documented as of this encounter
--- OUTSIDE RECORDS SUMMARY | 2022-07-19 13:20 | XMS_ITS | Encounter Summary ---
:1940 Author Organization [facility] [place] [address] Care Team Providers Name Role Phone Bobby Das MD Primary Care Provider Encounter Details Date Type Department Care Team Description 12/16/2016 [facility] [place] [address] Social History Tobacco Use Types Packs/Day [...] Collins MD [facility] GASTROENTEROLOGY DEPT [place], [place] [address] (Wo rk) 09/05/2022 Appointment Cardiology Trinity Reid MD [facility] CARDIOLOGY [place], [place] [address] (Wo rk) 09/05/2022 Office Visit Cardiology Trinity Reid MD [facility] CARDIOLOGY [place], [place] [address] (Wo rk) documented as of this encounter Visit Diagnoses Not on filedocumented in this encounter Care Teams Slipman Relationship Specialty Start Date End Date Bobby Das MD PCP - General 10/02/[address] [place] [address] [place] [phone] documented as of this encounter
--- OUTSIDE RECORDS SUMMARY | 2022-07-19 13:20 | XMS_ITS | Encounter Summary ---
:1940 Author Organization [facility] [place] [address] Care Team Providers Name Role Phone Bobby Das MD Primary Care Provider Reason for Referral Diagnostic Test (Routine) - Closed Specialty Diagnoses / Procedures Referred By Contact Refer red To Contact Radiology Diagnoses 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, sequela Closed compression fracture of L1 lumbar vertebra with delayed healing, subsequent encounter Malignant neoplasm of prostate Zbigniew Thompson PA [facility] Interventionl Rad Procedures IR Vertebroplasty Lumbar Multiple Levels IR Vertebral Augmentation Lumbar Single [place] [address] [place] [address] Fax: Referral ID Status Reason Start Date Expiration Date Visits V isits Requested Authorized [id number] Closed Specialty 07/13/2019 07/12/2020 1 1 Service Requested iagnostic Test (Routine) - Closed Specialty Diagnoses / Procedures Referred By Contact Refer red To Contact Radiology Diagnoses Closed compression fracture of L1 lumbar vertebra with delayed healing, subsequent encounter Malignant neoplasm of prostate Zbigniew Thompson PA [facility] Interventionl Rad Procedures [place] [address] [place] [address] Fax: Referral ID Status Reason Start Date Expiration Date Visits V isits Requested Authorized [id number] Closed Specialty 07/13/2019 07/12/2020 1 1 Service Requested Reason for Visit Diagnostic Test (Routine) - Closed Specialty Diagnoses / Procedures Referred By Contact Refer red To Contact Radiology Diagnoses 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, sequela Closed compression fracture of L1 lumbar vertebra with delayed healing, subsequent encounter Malignant neoplasm of prostate Zbigniew Thompson, PA [facility] Interventionl Rad Procedures IR Vertebroplasty Lumbar Multiple Levels IR Vertebral Augmentation Lumbar Single Level [facility] [place] [address] [place] [address] Fax: Referral ID Status Reason Start Date Expiration Date Visits V isits Requested Authorized [id number] Closed Specialty 07/13/2019 07/12/2020 1 1 Service Requested Encounter Details Date Type Department Care Team Description 07/20/2019 Hospital En[place] [facility] [place] [facility] Elmer Loya, Closed compression fracture of L1 lumbar vertebra with delayed healing, subsequent encounter; [facility] Malignant neoplasm of prostate; Drive [facility] Age-related osteoporosis wit h current pathological fracture of vertebra, sequela [place], [place] CENTER [address] SP[facility] CENTER [phone] [place] [address] Social History Tobacco Use Types Packs/Day Years [...] Martínez RN - 07/20/2019 10:06 AM EDT [facility] Discharge Instructions for Vertebroplasty [...] is during regular office hours, please call [phone]. If it is after regular office hours, oron weekends or holidays, please call [phone] and ask to speak to the Nutrition Teacher on callfor Interventional Radiology. XXX You have [...] : 1940 AGE: 78 y.o. Address: [address] [place] [address] [place] [phone] (home) Mobile: No relevant phone numbers on file. Referring Provider: Zbigniew Thompson REASON FOR VISIT: Order Questions Answers Where will study be performed? [facility] Radiology [120] Specify location Lumbar Reason [...] [facility] GASTROENTEROLOGY DEPT [place], [place] [address] (Wo rk) 09/05/2022 Appointment Cardiology Trinity Reid MD [facility] CARDIOLOGY [place], [place] [address] (Wo rk) 09/05/2022 Office Visit Cardiology Trinity Reid MD [facility] CARDIOLOGY [place], [place] [address] (Wo rk) documented as [...] made and a 13g a introducer needle (Keywee) was advanced through the right pedicle and [...] made an d a 13ga introducer needle (Keywee) was advanced through the left pedicle and [...] signed by: Bobby Sullivan MD, [facility] ([phone]), at 07/20/2019 1:20 PM Procedure Note Bobby [...] made and a 13g a introducer needle (Keywee) was advanced through the right pedicle and [...] made an d a 13ga introducer needle (Keywee) was advanced through the left pedicle and [...] For questions regarding this report, please contact [facility] number below. Elmer Loya MD IMG IR [...] made and a 13g a introducer needle (Keywee) was advanced through the right pedicle and [...] made an d a 13ga introducer needle (Keywee) was advanced through the left pedicle and [...] signed by: Bobby Sullivan MD, [facility] ([phone]), at 07/20/2019 1:20 PM Procedure Note Bobby [...] made and a 13g a introducer needle (Keywee) was advanced through the right pedicle and [...] made an d a 13ga introducer needle (Keywee) was advanced through the left pedicle and [...] signed by: Bobby Sullivan MD, [facility] ([phone]), at 07/20/2019 1:20 PM Elmer Loya MD IMG IR ORDERABLES Surgical Pathology Report (07/20/2019 10:45 AM EDT) Component Value Ref Test Analysis Performed At [facility] Method Time Signature Surgical [id number] ? [facility] The signing pathologist has (i) [...] Spence MD Verified: ??07/22/2019 ?Pathologist Performed at: ??-[facility] Dept. [place], [place], [place] DISCUSSION Deeper levels into the biopsy [...] Organization Address City/State/[place] [address] Specimen to Pathology (07/20/2019 8:41 AM EDT) Specimen Anatomical Collection Method Collection Time Receive d Time (Source) Location / / Volume Laterality AP Specimen 07/20/2019 8:41 AM 9 8:41 EDT AM EDT Narrative [facility] - 07/20/2019 8:41 AM EDT Specimen requisition ordered. ??Separate Pathology report to follow Elmer Loya MD PATHOLOGY/CYTOLOGY ORDERABLE S Performing Organization Address City/State/[place] [address] documented in this encounter [...] mg documented in this encounter Care Teams Industrial Maintenance Millwright Relationship Specialty Start Date End Date Bobby Das MD PCP - General 10/02/[address] [place] [address] [place] [phone] documented as of this encounter
--- OUTSIDE RECORDS SUMMARY | 2022-07-19 13:20 | XMS_ITS | Encounter Summary ---
:1940 Author Organization [facility] [place] [address] Care Team Providers Name Role Phone Bobby Das MD Primary Care Provider Encounter Details Date Type Department Care Team Description 06/16/2019 Ancillary Procedure Radiology Library at Bobby Almaguer MD [facility] [address] [place] [phone] (Wo rk) Social History Tobacco Use Types Packs/Day Years Used Date Current Some Day Smoker 1 50 Smokeless Tobacco: Never Used Sex Assigned at Date Recorded Not on file documented as of this encounter Plan of Treatment Upcoming Encounters Date Type Specialty Care Team Description 08/08/2022 Office Visit Gastroenterology Negra Collins MD [facility] DR GASTROENTEROLOGY DEPT [place], [place] [address] (Wo rk) 09/05/2022 Appointment Cardiology Trinity Reid MD [facility] CARDIOLOGY [place], [place] [address] (Wo rk) 09/05/2022 Office Visit Cardiology Trinity Reid MD [facility] CARDIOLOGY [place], [place] [address] (Wo rk) documented as of [...] Organization Address City/State/ZIP Code Phon e Number [place], [place] documented in this encounter Visit Diagnoses Not on filedocumented in this encounter Care Teams Benefits Advisor Relationship Specialty Start Date End Date Bobby Das MD PCP - General 10/02/[address] [place] [address] [place] [address] documented as of this encounter
--- OUTSIDE RECORDS SUMMARY | 2022-07-19 13:20 | XMS_ITS | Encounter Summary ---
:1940 Author Organization [facility] [place] [address] Care Team Providers Name Role Phone Bobby Das MD Primary Care Provider Encounter Details Date Type Department Care Team Description 07/20/2019 Laboratory Lab 3L Ifrah Gastrointestina l Appointment [facility] ([facility]) hemorrhag e, unspecified Hospital gastrointestinal [facility] [place] [id number] Social History Tobacco Use Types Packs/Day Years [...] Collins MD [facility] DR GASTROENTEROLOGY DEPT [place], [place] [address] (Wo rk) 09/05/2022 Appointment Cardiology Trinity Reid MD [facility] CARDIOLOGY [place], [place] [address] (Wo rk) 09/05/2022 Office Visit Cardiology Trinity Reid MD [facility] CARDIOLOGY [place], [place] [address] (Wo rk) documented as of this encounter Procedures Procedure Name Priority Date/Time Associated Diagnosis Comme [facility] HEMOGRAM Routine 07/20/2019 8:18 Gastrointestinal [...] Time Signature WBC 6.0 4.0 - 9.5 [facility] LABORATORY RBC 4.50 (L) 4.58 - [facility] 5.54 [facility] x10(6)/[facility] LABORATORY Hemoglobin 14.8 13.7 - [facility] 16.5 gm/dL [facility] LABORATORY Hematocrit 43.9 40.5 - [facility] 48.5 % [facility] LABORATORY MCV 97.6 (H) 82.9 - [facility] 93.1 [facility] LABORATORY MCH 32.9 (H) 27.5 - [facility] 32.1 pg [facility] LABORATORY MCHC 33.7 32.0 - [facility] 35.7 gm/dL [facility] LABORATORY Platelets 164 145 - 357 [facility] x10(3)/[facility] LABORATORY RDWSD 49.3 (H) 36.0 - [facility] 45.0 [facility] LABORATORY RDWCV 13.6 11.4 - [facility] 13.8 % [facility] LABORATORY MPV 10.0 7.6 - 12.9 [facility] LABORATORY nRBC % Auto 0.0 % [facility] LABORATORY nRBC Abs Auto 0.000 0.000 - [facility] 0.000 [facility] x10(3)/[facility] LABORATORY Specimen Anatomical Collection Method Collection Time Receive d Time (Source) Location / / Volume Laterality Blood specimen 07/20/2019 8:18 AM 019 8:21 (specimen) EDT AM EDT Resulting Agency Comment Spec In Lab Bobby Marshall MD HEMATOLOGY ORDERABLES Performing Organization Address City/State/[place] [address] Prothrombin Time (07/20/2019 8:18 AM EDT) P athologist Signature PT 11.3 9.4 - 12.5 [facility] [place] [facility] LABORATORY INR 1.0 [facility] LABORATORY [...] Organization Address City/State/[place] [address] documented in this encounter Visit Diagnoses Diagnosis Gastrointestinal hemorrhage, unspecified gastrointestinal hemorrhage type documented in this encounter Care Teams Hospital Plan Administrator Relationship Specialty Start Date End Date Bobby Das MD PCP - General 10/02/[address] [place] [address] Dr [place], [place] [address] documented as of this encounter
--- OUTSIDE RECORDS SUMMARY | 2022-07-19 13:21 | XMS_ITS | Encounter Summary ---
:1940 Author Organization [facility] [address] Care Team Providers Name Role Phone Bobby Das MD Primary Care Provider Reason for Visit Reason Comments Shortness of Breath Encounter Details Date Type Department Care Team Description 09/17/[address] [facility] Hosp Torrey Giang SOB (shortness of [address] Mendoza MD breath) (Primary Dx) [facility] [address] CARDIOLOGY DEPT. [place] [id number] Social History Tobacco Use Types Packs/Day Years [...] MD [facility] GASTROENTEROLOGY DEPT [place], [place] [address] (Wo rk) 09/05/2022 Appointment Cardiology Trinity Reid MD [facility] CARDIOLOGY [place], [place] [address] (Wo rk) 09/05/2022 Office Visit Cardiology Trinity Reid MD [facility] CARDIOLOGY [place], [place] [address] (Wo rk) documented as of [...] breath documented in this encounter Care Teams Account Services Representative Relationship Specialty Start Date End Date Bobby Das MD PCP - General 10/02/[address] [place] [address] [place] [address] documented as of this encounter
--- OUTSIDE RECORDS SUMMARY | 2022-07-19 13:21 | XMS_ITS | Encounter Summary ---
:1940 Author Organization [facility] [place] [address] Care Team Providers Name Role Phone Bobby Das MD Primary Care Provider Reason for Visit Reason Comments Skin Check Encounter Details Date Type Department Care Team Description 03/29/2014 Office Visit Dermatology at [facility], Kyle c ell carcinoma (Primary Dx); Nba CARCAMO Verruca vulgaris; [address] [place] (actinic keratosis) [facility] B DERMATOLOGY [place], [place] [address] [phone] Social History Tobacco Use Types Packs/Day Years [...] sun over the years. He lives in [place], [place]. Physical examination reveals a pleasant, 73-year-old gentleman who has a pearly, 1-cm papule on the right lateral canthus, site A; and a pearly papule about 8 mm in diameter, site C, on the right advent at the scalp line. At the central [...] BCCAs, right lateral canthus and right lateral advent, sites A and C, respectively. a. After [...] MD [facility] GASTROENTEROLOGY DEPT [place], [place] [address] (Wo rk) 09/05/2022 Appointment Cardiology Trinity Reid MD [facility] CARDIOLOGY [place], [place] [address] (Wo rk) 09/05/2022 Office Visit Cardiology Trinity Reid MD [facility] CARDIOLOGY [place], [place] [address] (Wo rk) documented as of this encounter Visit Diagnoses Diagnosis Basal cell carcinoma - Primary Basal cell carcinoma of skin, site unspe cified Verruca vulgaris Viral warts, unspecified [place] (actinic keratosis) Actinic keratosis documented in this encounter Care Teams Community Health Program Representative Relationship Specialty Start Date End Date Bobby Das MD PCP - General 10/02/[address] [place] [address] [place] [address] documented as of this encounter
--- OUTSIDE RECORDS SUMMARY | 2022-07-19 13:21 | XMS_ITS | Encounter Summary ---
:1940 Author Organization [facility] [place] [address] Care Team Providers Name Role Phone Bobby Das MD Primary Care Provider Reason for Visit Reason Comments Follow-up Encounter Details Date Type Department Care Team Description 05/31/2014 [facility] of basal cell Nba CARCAMO carcinoma (Primary [address] Dx) [facility] B DERMATOLOGY [place], [place] [phone] [phone] Social History Tobacco Use Types Packs/Day Years Used Date Current Some Day Smoker 1 50 Smokeless Tobacco: Never Used Sex Assigned at Date Recorded Not on file documented as of this encounter Patient Instructions Patient InstructionsSupriya Louis LPN - 05/31/2014 1:34 PM EDT Images from the original note were not included. [facility] Actinic Keratosis: After Your Visit Your [...] more? Visit our health information library at [email or web address] You can also view health information on [employer], your personal patient account. Log in or sign up today. Enter L364 in the search box to learn more about Actinic Keratosis: After Your Visit. ?? 1228-1901 [employer]. Care instructions adapted under license by [facility]. This care instruction is for use with your licensed healthcare professional. If you have questionsabout a medical condition or this instruction, always ask your healthcare professional. [employer] disclaims any warranty or liability for your use of this information. Content Version: 9.9.973972; Last Revised: December 22, 2012 documented in this encounter Progress Notes Hammer, Cy J, MD - 05/31/2014 2:08 PM EDT Problem: Follow up for repeat skin checkup. Shadi follows up after last being seen in March. At that time, I removed using shave C and D a BCCA from the right lateral canthus and a BCCA from the right lateral tenriism. I also treated a verruca vulgaris on [...] 08/08/2022 Office Visit Gastroenterology Negra Collins MD [facility] GASTROENTEROLOGY DEPT [place], [place] [address] (Wo rk) 09/05/2022 Appointment Cardiology Trinity Reid MD [facility] [address] [place], [place] [address] (Wo rk) 09/05/2022 Office Visit Cardiology Trinity Reid MD [facility] [address] [place], [place] [address] (Rebekah rojas) documented as of this encounter Visit Diagnoses Diagnosis History of basal cell carcinoma - Primar y Personal history of other malignant neop lasm of skin documented in this encounter Care Teams Websphere Administrator Relationship Specialty Start Date End Date Bobby Das MD PCP - General 10/02/[address] [place] [address] [place] [address] documented as of this encounter
--- OUTSIDE RECORDS SUMMARY | 2022-07-19 13:21 | XMS_ITS | Encounter Summary ---
:1940 Author Organization [facility] Address [facility] [address] [place] [address] Care Team Providers Name Role Phone Bobby Das MD Primary Care Provider Reason for Visit Reason Onset Date Comments Other 07/19/2011 Encounter Details Date Type Department Care Team Description 07/19/2011 Telephone Cardiology at [facility] Chet Nicole [place] [address] CARDIOLOGY DEPT. [phone] [place], [place] [address] (Wo rk) Social History Tobacco [...] MD [facility] GASTROENTEROLOGY DEPT [place], [place] [address] (Wo rk) 09/05/2022 Appointment Cardiology Trinity Reid MD [facility] CARDIOLOGY [place], [place] [address] (Wo rk) 09/05/2022 Office Visit Cardiology Trinity Reid MD [facility] ER CARDIOLOGY [place], [place] [address] (Wo rk) documented as of this encounter Visit Diagnoses Not on filedocumented in this encounter Care Teams Armament Repairer Relationship Specialty Start Date End Date Bobby Das MD PCP - General 10/02/[address] [place] [address] [place] [phone] documented as of this encounter
--- OUTSIDE RECORDS SUMMARY | 2022-07-19 13:21 | XMS_ITS | Encounter Summary ---
:1940 Author Organization [facility] Address [address] [place] [address] Care Team Providers Name Role Phone Bobby Das MD Primary Care Provider Reason for Visit Reason Comments Shortness of Breath Encounter Details Date Type Department Care Team Description 06/28/2011 Office Visit Cardiology at [facility] Chet Nicole SOB (shortness of breath) (P rimary Dx); [facility] GIB (gastrointestinal bleeding); Drive [facility] MVP (mitral valve prolapse) [place] [address] CARDIOLOGY DEPT. [phone] [place], [place] [address] Social History Tobacco Use [...] Giordano MD - 06/28/2011 4:15 PM EDT [facility] Cholesterol and Triglycerides Tests: About These Tests [...] 60 mg/dl is considered ideal. ?? Total buaenmjlyfv-wg-ZMF ratio: A ratio of 5:1 or lower is recommended. ?? LDL cholesterol: Between 100-129 mg/dL is recommended. Lower than 100 mg/dL is considered ideal. ?? VLDL cholesterol: 30 mg/dL or less is recommended. ?? Triglycerides: Lower than 150 mg/dL is recommended. Where can you learn more? Visit our health information library at [email or web address]. You can also view health information on [employer]il [employer], your personal patient account. Log in or sign up today. Enter V788 in the search box to learn more about Cholesterol and Triglycerides Tests: About These Tests. ?? [id number] [employer]. Care instructions adapted under license by [facility]. This care instruction is for use with your licensed healthcare professional. If you have questionsabout a medical condition or this instruction, always ask your healthcare professional. [employer] disclaims any warranty or liability for your [...] prolapse) s/p repair Surgery done at [facility] in 2000 ??? Hypertriglyceridemia ??? Adhesive capsulitis of L shoulder ??? Alcohol use Medications: [place]-3 Fatty Acids-Vitamin E (FISH OIL) 1,000 mg [...] Collins MD [facility] GASTROENTEROLOGY DEPT [place], [place] [address] (Wo rk) 09/05/2022 Appointment Cardiology Trinity Reid MD [facility] CARDIOLOGY [place], [place] [address] (Wo rk) 09/05/2022 Office Visit Cardiology Trinity Reid MD [facility] CARDIOLOGY [place], [place] [address] (Wo rk) documented as of this encounter Procedures Procedure Name Priority Date/Time Associated Diagnosis Comme nts EKG 12-LEAD Routine 06/28/2011 2:59 PM SOB (shortness of Resu lts for this EDT breath) procedure are i n the results section . documented in this encounter Results EKG 12 Lead (06/28/2011 2:59 PM EDT) [facility] gist Method Time Signature Ventricular rate 70 BPM MUSE SYSTEM Atrial Rate 70 BPM MUSE SYSTEM P-R Interval 182 ms MUSE SYSTEM QRS Duration 106 ms MUSE SYSTEM Q-T Interval 406 ms MUSE SYSTEM QTC Calculated 438 ms MUSE SYSTEM (Bezet) Calculated P Regina 60 degrees MUSE SYSTEM Calculated R Regina -51 degrees MUSE SYSTEM Calculated T Regina 32 degrees MUSE SYSTEM INTERPRETATION Normal sinus [...] disorders documented in this encounter Care Teams Parachutist/Combatant Diver Qualified Relationship Specialty Start Date End Date Bobby Das MD PCP - General 10/02/[address] [place] [address] [place] [phone] documented as of this encounter
--- OUTSIDE RECORDS SUMMARY | 2022-07-19 13:21 | XMS_ITS | Encounter Summary ---
:1940 Author Organization [facility] [place] [address] Care Team Providers Name Role Phone Bobby Das MD Primary Care Provider Encounter Details Date Type Department Care Team Description 07/25/2015 Hospital Encounter Laboratory Leo Solo, [facility] [place] [address]-DERMATOLOGY [place], [place] [address] (Wo rk) Social History Tobacco [...] MD [facility] GASTROENTEROLOGY DEPT [place], [place] [address] (Wo rk) 09/05/2022 Appointment Cardiology Trinity Reid MD [facility] CARDIOLOGY [place], [place] [address] (Wo rk) 09/05/2022 Office Visit Cardiology Trinity Reid MD [facility] ER CARDIOLOGY [place] 0[address] (Wo rk) documented as of this encounter Procedures Procedure Name Priority Date/Time Associated Diagnosis Comme nts SURGICAL PATHOLOGY Routine 07/25/2015 9:51 AM Res ults for this REPORT EDT procedure are i n the results section. documented in this encounter Results Surgical Pathology Report (07/25/2015 9:51 AM EDT) Component Value Ref Test Analysis Performed At [facility] Method Time Signature Surgical The signing pathologist has (i) examined the relevant preparation(s) for the [facility] Pathology specimen(s) and (ii) rendered or confirmed the diagnosis(e s). [facility] Report Accession Number: [id number] . ?Surgic al Pathology DIAGNOSIS CONSULTATION CASE Outside slides labeled [id number], collection date 07/03/2015 . Skin, right jain, excision: ?- ??BASAL CELL CARCINOMA, INFILTRATIVE TYPE [...] CONSULTATION CASE A - 3 slides labeled [id number], collection date 07/03/2015. [id number] Report to: [facility] Surgical Pathology Department [facility], [address], 2nd Floor [address] [place], [place] ??[address] SPECIMEN PROCESSING [facility] ([facility]) pathology slide(s) are reviewed. ??Refer to Diagnosis and Specimen Submitted for specific case infor arpan. For the full text of the [facility] ([facility]) report(s) please refer to Non-DH Documentati on Pathology in the electronic health record (eDH). Specimen (Source) Anatomical Collection Method Collection Time Re ceived Time Location / / Volume Laterality 07/25/2015 9:51 AM EDT Leo Solo MD PATHOLOGY/CYTOLOGY ORDERABLE S Performing Organization Address City/State/[place] [address] [facility] documented in this encounter Visit Diagnoses Not on filedocumented in this encounter Care Teams Concrete Panel Installer Relationship Specialty Start Date End Date Bobby Das MD PCP - General 10/02/[address] [place] [address] [place] [phone] documented as of this encounter
--- OUTSIDE RECORDS SUMMARY | 2022-07-19 13:21 | XMS_ITS | Encounter Summary ---
:1940 Author Organization [facility] Address [address] [place] [address] Care Team Providers Name Role Phone Bobby Das MD Primary Care Provider Reason for Visit Reason Comments Shortness of Breath Encounter Details Date Type Department Care Team Description 12/24/2011 Office Visit [facility] Hosp Torrey Giang SOB (shortness of [address] Mendoza MD breath) (Primary Dx) [facility] [phone] CARDIOLOGY DEPT. [place], [place] [address] Social History Tobacco Use Types [...] Collins MD [facility] GASTROENTEROLOGY DEPT [place], [place] [address] (Wo rk) 09/05/2022 Appointment Cardiology Trinity Reid MD [facility] CARDIOLOGY [place], [place] [address] (Wo rk) 09/05/2022 Office Visit Cardiology Trinity Reid MD [facility] CARDIOLOGY [place], [place] [address] (Wo rk) documented as of this encounter Visit Diagnoses Diagnosis SOB (shortness of breath) - Primary Shortness of breath documented in this encounter Care Teams Shot Examiner Relationship Specialty Start Date End Date Bobby Das MD PCP - General 10/02/[address] [place] [address] [place] [phone] documented as of this encounter
[2022-07-19 13:25] LABS: Abs Immature Grans 0.03 10^3/uL (0.0-0.06); Absolute Basophil Count 0.03 10^3/uL (0.0-0.2); Absolute Eosinophil Count 0.15 10^3/uL (0.0-0.7); Absolute Lymphocyte Count 1.76 10^3/uL (1.2-3.4); Absolute Monocyte Count 0.61 10^3/uL (0.1-0.8); Absolute Neutrophil Count 6.02 10^3/uL (1.2-6.7); Basophils % 0.3; Eosinophils % 1.7; HCT 26.6 % (40.0-50.0); HGB 8.3 g/dL (13.5-17.5); Immature Grans % 0.3; Lymphocytes % 20.5; MCH 26.8 pg (27.0-33.0); MCHC 31.2 % (32.0-36.0); MCV 86 fL (80-95); MPV 10.6 fL (8.0-11.0); Monocytes % 7.1; Neutrophils % 70.1; Platelet Count 227 10^3/uL (130-400); RDW 16.6 % (11.8-14.1); RDW-SD 52.6 fL
[2022-07-19] MEDS: Normal Saline 1,000 ML 125 ML IV (13:27)
--- OUTSIDE RECORDS SUMMARY | 2022-07-19 13:28 | XMS_ITS | Encounter Summary ---
:1940 Author Organization [facility] Address [address] [place] [address] Care Team Providers Name Role Phone Bobby Das MD Primary Care Provider Reason for Visit Reason Comments Prostate Cancer Follow up Encounter Details Date Type Department Care Team Description 07/16/2019 Office Visit [facility] Center Aries Gutierrez neoplasm of Radiation Oncology - Felix EAST MD prostate ([facility]) Main [address] (Primary Dx) [address] [place] [address] [place] [address], [place] [phone] [facility] Level [address] [place] [address] (Wo rk) Social History Tobacco [...] DATE OF SERVICE: 07/16/2019 DIAGNOSIS AND STAGE: [id number], PSA 12.8 Winifred score 3+4 = 7 [...] this point. He is being evaluated at [facility] next week for possible tuboplasty. [...] prepared with voice recognition software. Please excuse show girl errors. documented in this encounter Plan of [...] ORAL) added in this encounter Care Teams Checker Cashier Relationship Specialty Start Date End Date Bobby Das MD PCP - General 07/06/[address] [place] [address],[address] [place] [address] documented as of this encounter
--- OUTSIDE RECORDS SUMMARY | 2022-07-19 13:28 | XMS_ITS | Encounter Summary ---
:1940 Author Organization [facility] Address [address] [place] [address] Care Team Providers Name Role Phone Bobby Das MD Primary Care Provider Encounter Details Date Type Department Care Team Description 02/25/2018 Documentation Visit [facility] Adama Vargas RN Radiation Oncology - [address] [place] [address] [place] [address] Social History Tobacco Use Types Packs/Day Years Used Date Current Every Day Smoker Smokeless Tobacco: Never Used Sex Assigned at Date Recorded Not on file documented as of this encounter Progress Notes Lynn Vargas RN - 02/25/2018 1773 EDT Koko Zamora requested to be seen [...] on filedocumented in this encounter Care Teams Automated Process Operator Relationship Specialty Start Date End Date Bobby Das MD PCP - General 07/06/[address] [place] [address],[address] [place] [address] documented as of this encounter
--- OUTSIDE RECORDS SUMMARY | 2022-07-19 13:28 | XMS_ITS | Encounter Summary ---
:1940 Author Organization [facility] Address [address] [place] [address] Care Team Providers Name Role Phone Bobby Das MD Primary Care Provider Encounter Details Date Type Department Care Team Description 03/04/2018 Documentation Visit [facility] Cancer Center Aries Gutierrez Radiation Oncology - III, [address] [address] [address], [place] [phone] (Wo rk) Social History Tobacco Use Types Packs/Day Years Used Date Current Every Day Smoker Smokeless Tobacco: Never Used Sex Assigned at Date Recorded Not on file documented as of this encounter Miscellaneous Notes Treatment Summary - Delores Gutierrez III, MD - 03/04/2018 1339 EDT Images from the original note were not included. 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 He [...] Dr. José. Sj Gutierrez MD Radiation Oncology [phone] (office) [phone] (pager) This note has been prepared with voice recognition software. Please excuse detective chief errors. documented in this encounter Plan of Treatment Not on filedocumented as of this encounter Visit Diagnoses Not on filedocumented in this encounter Care Teams Donor Relations Manager Relationship Specialty Start Date End Date Bobby Das MD PCP - General 07/06/[address] [place] [address],[address] [place] [phone] documented as of this encounter
--- OUTSIDE RECORDS SUMMARY | 2022-07-19 13:28 | XMS_ITS | Encounter Summary ---
:1940 Author Organization [facility] Address [address] [place] [address] Care Team Providers Name Role Phone Bobby Das MD Primary Care Provider Encounter Details Date Type Department Care Team Description 08/28/2020 Lab Requisition [facility] Outr Resulting Lab, Pathology & Laboratory Provider [facility] [address] [place], [place] [id number] Social History Tobacco Use Types Packs/Day Years [...] (08/28/2020 9:58 EDT) COVID-19 rt-PCR NEGATIVE Negative [facility] Result Comment: LABORATORY 2019-novel [...] Organization Address City/State/ZIP Code Phon e Number [employer] [facility] [place] COVID-19 TESTING (08/28/2020 9:58 EDT) Pathologist [facility] COVID-19 rt-PCR NEGATIVE Negative [facility] [...] Administration's Emergency Use Authorization. Performing Lab [facility] LABORATORY SERVICES Specimen Swab Performing Organization Address City/State/ZIP Code Phon e Number [facility] [address] [place] [address] SERVICES [facility] [place], [place] documented in this encounter Visit Diagnoses Not on filedocumented in this encounter Care Teams Routeman Relationship Specialty Start Date End Date Bobby Das MD PCP - General 07/06/[address] [place] [address] ,[address] [place] [address] documented as of this encounter
--- OUTSIDE RECORDS SUMMARY | 2022-07-19 13:28 | XMS_ITS | Encounter Summary ---
:1940 Author Organization [facility] Address [address] [place] [address] Care Team Providers Name Role Phone Bobby Das MD Primary Care Provider Reason for Visit Reason Comments Other Encounter Details Date Type Department Care Team Description 03/04/2019 Refill [facility] Radiation Adelfo Gutierrez ld Felix III, Other Oncology - Main [facility] [address] [place] [id number] [place] [address] [facility] 2 [place], [place] [address] (Wo rk) Social History [...] documented as of this encounter Care Teams Hunter Relationship Specialty Start Date End Date Bobby Das MD PCP - General 07/06/[address] [place] [address],[address] [place] [address] documented as of this encounter
--- OUTSIDE RECORDS SUMMARY | 2022-07-19 13:28 | XMS_ITS | Encounter Summary ---
:1940 Author Organization [facility] Address [address] [place] [address] Care Team Providers Name Role Phone Bobby Das MD Primary Care Provider Reason for Visit Reason Onset Date Comments Prostate Cancer 06/03/2018 Encounter Details Date Type Department Care Team Description 06/03/2018 Telephone [facility] Aries Gutierrez Cancer Radiation Oncology - III, [address] [address] Pavilion, [place] [address] (Wo rk) Social History Tobacco Use Types Packs/Day Years Used Date Current Every Day Smoker Smokeless Tobacco: Never Used Sex Assigned at Date Recorded Not on file documented as of this encounter Miscellaneous Notes Telephone Encounter - Delores Gutierrez III, MD - 06/03/2018 3093 EDT RADIATION ONCOLOGY I spoke with Mr. Zamora by phone today. He tells me he is unable to make it to [place] for follow-up visits with me as he [...] office if he will be in the [place] area as I would be happyto move my schedule as needed to see him for follow-up. I did strongly encourage him to continue follow-up with Dr. José and asked him to call them to arrange an appointment. He canceled his next scheduled follow-up appointment with me. Sj Gutierrez MD Radiation Oncology [phone] (office) [phone] (pager) This note has been prepared with voice recognition software. Please excuse strand buncher fine wire errors. documented in this encounter Plan of Treatment Not on filedocumented as of this encounter Visit Diagnoses Not on filedocumented in this encounter Care Teams Bee Farmer Relationship Specialty Start Date End Date Bobby Das MD PCP - General 07/06/[address] [place] [address],[address] [place] [address] documented as of this encounter
--- OUTSIDE RECORDS SUMMARY | 2022-07-19 13:28 | XMS_ITS | Encounter Summary ---
:1940 Author Organization [facility] Address [address] [place] [address] Care Team Providers Name Role Phone Bobby Das MD Primary Care Provider Encounter Details Date Type Department Care Team Description 07/16/2019 Hospital Encounter [facility] - Dayne Gutierrez [facility] III, MD [phone] [place] [address] [facility] Level 2 [place] [address] (Wo rk) Social History Tobacco [...] on filedocumented in this encounter Care Teams Brass Buffer Relationship Specialty Start Date End Date Bobby Das MD PCP - General 07/06/[address] [place] [address] ,[address] [place] [address] documented as of this encounter
--- OUTSIDE RECORDS SUMMARY | 2022-07-19 13:28 | XMS_ITS | Encounter Summary ---
:1940 Author Organization [facility] Address [address] [place] [address] Care Team Providers Name Role Phone Bobby Das MD Primary Care Provider Encounter Details Date Type Department Care Team Description 04/23/2018 Hospital Encounter [facility]- Devi Unknown, Provider, [facility] 7[address] [facility] [phone] [place] [address] (Work) [phone] Social History Tobacco Use Types Packs/Day Years [...] filedocumented in this encounter Care Teams Construction Rep Relationship Specialty Start Date End Date Bobby Das MD PCP - General 07/06/[address] [place] [address] ,[address] [place] [address] documented as of this encounter
--- OUTSIDE RECORDS SUMMARY | 2022-07-19 13:28 | XMS_ITS | Encounter Summary ---
:1940 Author Organization [facility] Address [address] [place] [address] Care Team Providers Name Role Phone Bobby Das MD Primary Care Provider Encounter Details Date Type Department Care Team Description 07/16/2019 Phlebotomy Only [facility] Grade School Teacher, Eboni barbosa neoplasm - [facility] Outpatient of prostate 111 [facility] ([facility]) (Primary [place], [place] Dx) [address] Social History Tobacco Use [...] DIAGNOSTIC of prostate procedure are i n ([facility]) the results section. documented in this encounter Results PSA TOTAL, DIAGNOSTIC (07/16/2019 9:30 EDT) PSA 0.1 0 - 6.5 ng/ml [facility] Comment: LABORATORY SERVICES Serum PSA concentration should not be interpreted as absolute evidence for the presence or absence of malignant disease. Assayed utilizing Siemens ([employer]) chemiluminescent technology. ??Values obtained by using different assay methods cannot be used interchangeably. Specimen Blood specimen (specimen) - Blood Performing Organization Address City/State/ZIP Code Phon e Number [facility] [address] [place] [address] SERVICES documented in this encounter Visit Diagnoses Diagnosis Malignant neoplasm of prostate ([facility]) (HCC) - Primary Malignant neoplasm of prostate documented in this encounter Orders Lab Orders Without Results Count Last Ordered Date st Ordered Date PSA TOTAL, DIAGNOSTIC 1 07/16/2019 documented in this encounter Care Teams Detention Worker Relationship Specialty Start Date End Date Bobby Das MD PCP - General 07/06/[address] [place] [address],[address] [place] [address] documented as of this encounter
--- OUTSIDE RECORDS SUMMARY | 2022-07-19 13:28 | XMS_ITS | Encounter Summary ---
:1940 Author Organization [facility] Address [address] [place] [address] Care Team Providers Name Role Phone Abby Das MD Primary Care Provider Encounter Details Date Type Department Care Team Description 04/22/2018 Results Only [facility] Abby Das MD [phone] [place] [address],[address] [place], [place] [phone] (Wo rk) Social History Tobacco Use Types Packs/Day Years Used Date Current Every Day Smoker Smokeless Tobacco: Never Used Sex Assigned at Date Recorded Not on file documented as of this encounter Plan of Treatment Not on filedocumented as of this encounter Procedures Procedure Name Priority Date/Time Associated Diagnosis Comme [facility] SURGICAL PATHOLOGY Routine 04/22/2018 8:40 EDT Re sults for this procedure are i n the results section. documented in this encounter Results SURGICAL PATHOLOGY (04/22/2018 8:40 EDT) Pathology Report: SURGICAL PATHOLOGY REPORT [facility] Reports generated via electronic interface contain abram ginal data; LABORATORY however they are lacking the format of the original re port. SERVICES Caution should be taken when reading/interpreting unfo rmatted reports. Name: ? ETTA BAH ? Accession #: ? [id number] ? : ? 1940 (Age: 77) ??M [...] Organization Address City/State/ZIP Code Phon e Number [facility] [address] [place] [address] SERVICES documented in this encounter Visit Diagnoses Not on filedocumented in this encounter Care Teams Health Service Worker Relationship Specialty Start Date End Date Abby Das MD PCP - General 07/06/[address] [place] [address] ,[address] [place] [address] documented as of this encounter
--- OUTSIDE RECORDS SUMMARY | 2022-07-19 13:28 | XMS_ITS | Encounter Summary ---
:1940 Author Organization [facility] Address [address] [place] [address] Care Team Providers Name Role Phone Bobby Das MD Primary Care Provider Reason for Visit Reason Onset Date Comments Appointment Related 03/19/2018 Encounter Details Date Type Department Care Team Description 03/19/2018 Telephone [facility] Dominique Mirza, Sloane ointment Related Urology - James campo RN [address] [place] [address] Social History Tobacco Use Types [...] there. ill plan to see him at [facility]. Tc to pt to advise he [...] so, can the pt [facility] as originally suggested in 's 01/05 progress note. Will call patient to let him know if he needs to f/u with and if so, can he be seen at [facility]. documented in this encounter Plan of Treatment Not on filedocumented as of this encounter Visit Diagnoses Not on filedocumented in this encounter Care Teams Air Brake Worker Relationship Specialty Start Date End Date Bobby Das MD PCP - General 07/06/[address] [place] [address],[address] [place] [address] documented as of this encounter
--- OUTSIDE RECORDS SUMMARY | 2022-07-19 13:28 | XMS_ITS | Encounter Summary ---
:1940 Author Organization [facility] Address [address] [place] [address] Care Team Providers Name Role Phone Bobby Das MD Primary Care Provider Reason for Visit Reason Onset Date Comments Follow-up 03/06/2018 Encounter Details Date Type Department Care Team Description 03/06/2018 Telephone [facility] Theron Rojas RN Follow-up Radiation Oncology - Main [address] [place] [address] [place] [address] Social History Tobacco Use Types Packs/Day Years Used Date Current Every Day Smoker Smokeless Tobacco: Never Used Sex Assigned at Date Recorded Not on file documented as of this encounter Miscellaneous Notes Telephone Encounter - Rupal Rojas RN - 03/06/2018 1305 EDT I called and spoke with Koko [...] on filedocumented in this encounter Care Teams Tennis Professional Relationship Specialty Start Date End Date Bobby Das MD PCP - General 07/06/[address] [place] [address],[address] [place] [address] documented as of this encounter
--- OUTSIDE RECORDS SUMMARY | 2022-07-19 13:28 | XMS_ITS | Encounter Summary ---
:1940 Author Organization [facility] Address [address] [place] [address] Care Team Providers Name Role Phone Bobby Das MD Primary Care Provider Encounter Details Date Type Department Care Team Description 10/03/2021 Lab Requisition [facility] Bobby Das Enc ounter for other Pathology & MD general examination Laboratory Medicine [address] [place] [address],[address] [facility] 1 [place], [place] [phone] [place] [phone] Social History Tobacco Use Types Packs/Day Years [...] 15:36 EST) Note to Patient The following [facility] pathology results have CENTER been interpreted [...] material is identified. Attestation By the signature [facility] Electronica lly below, the attending CENTER signed by Deejay, physician certifies LABORATORY Lis Platt MD on that they have 1) SERVICES 10/08/2021 at 1640 personally conducted a gross and/or microscopic examination of the described specimen(s), and/or personally interpreted the results of laboratory testing of the described specimen(s), and 2) personally rendered or confirmed the above diagnosis. Microscopic Sections consist of an [facility] Description excision of skin to CENTER [...] deeper sections. Clinical History Firm lesion not [facility] healing; foreign body CENTER granuloma LABORATORY SERVICES Gross Description A. [facility] Received in formalin christina d with [...] SERVICES Toni Giordano 10/05/2021 8:15 Performing Lab [facility] LABORATORY SERVICES Scanned Images [facility] LABORATORY SERVICES Specimen Tissue - Skin (tissue) specimen (specime n) Performing Organization Address City/State/ZIP Code Phon e Number [facility] [address] [place] [address] SERVICES documented in this encounter Visit Diagnoses Diagnosis Encounter for other general examination documented in this encounter Care Teams Typo Machine Operator Relationship Specialty Start Date End Date Bobby Das MD PCP - General 07/06/[address] [place] [address] ,[address] [place] [address] documented as of this encounter
--- OUTSIDE RECORDS SUMMARY | 2022-07-19 13:28 | XMS_ITS | Clinical Summary ---
:1940 Author Organization [facility] Address [address] [place] [address] Care Team Providers Name Role Phone Bobby [...] Noted Date Malignant neoplasm of prostate ([facility]) 11/19/2017 Cancer Staging: Clinical stage from 11/19: Stage IIB (cT2a, cN0, cM0, PSA: 12.8, Grade Group: 2) - Signed by Delores Gutierrez III, MD on 11/19/2017 Medical History Medical History Date Comments Cancer ([facility]) (HCC) Hyperlipidemia Family History Medical History [...] T ype Group Dates MEDICARE MEDICARE A/B [id number] 2007-Pre [address] edicare GL sent [address] [place] [place] [address] [facility] [id number] 2021-Pre [address] Commercial GL [facility] sent [place], [place] [id number] COMPANY Koko Zamora Personal/Family Self 1940 [address] (Home) [place] [address] Koko Zamora Personal/Family Self 1940 [address] [address] Care Teams Sausage Smoker Relationship Specialty Start Date End Date Bobby Das MD PCP - General 07/06/[address] [place] [address],[address] [place] [phone]
--- OUTSIDE RECORDS SUMMARY | 2022-07-19 13:28 | XMS_ITS | Encounter Summary ---
:1940 Author Organization [facility] Address [address] [place] [address] Care Team Providers Name Role Phone Bobby Das MD Primary Care Provider Encounter Details Date Type Department Care Team Description 06/17/2019 Results Only [facility]- Unknown, PRISM ProviderMD [phone] Social History Tobacco Use Types Packs/Day Years [...] on filedocumented in this encounter Care Teams Softball Core Molder Relationship Specialty Start Date End Date Bobby Das MD PCP - General 07/06/[address] [place] [address] ,[address] [place] [address] documented as of this encounter
--- OUTSIDE RECORDS SUMMARY | 2022-07-19 13:29 | XMS_ITS | Encounter Summary ---
:1940 Author Organization [facility] Address [address] [place] [address] Care Team Providers Name Role Phone Bobby Das MD Primary Care Provider Encounter Details Date Type Department Care Team Description 10/29/2017 Hospital Encounter [facility]- Devi Unknown, Provider, [facility] 790 [facility] [phone] [place] [address] (Work) [phone] Social History Tobacco Use Types Packs/Day Years Used Date Never Assessed Sex Assigned at Date Recorded Not on file documented as of this encounter Discharge Disposition Disposition Code Departure Means Destination Home or Self [facility] documented in this encounter Plan of Treatment Not on filedocumented as of this encounter Visit Diagnoses Not on filedocumented in this encounter Care Teams International Project Manager Relationship Specialty Start Date End Date Bobby Das MD PCP - General 07/06/[address] [place] [address],[address] [place] [address] documented as of this encounter
--- OUTSIDE RECORDS SUMMARY | 2022-07-19 13:29 | XMS_ITS | Encounter Summary ---
:1940 Author Organization [facility] Address [address] [place] [address] Care Team Providers Name Role Phone Bobby Das MD Primary Care Provider Reason for Visit Reason Comments Cancer Encounter Details Date Type Department Care Team Description 02/24/2018 Radiation Therapy [facility] Isela Law Ma lignant neoplasm of prostate (HCC-CMS) (Primary Dx); Visit Radiation Oncology - DION roldan deprivation therapy Main [place] [address] [place] [address] Social History Tobacco Use Types Packs/Day [...] neoplasm of prostate ([facility]) (HCC) - Primary Malignant neoplasm of prostate Androgen deprivation therapy Encounter for therapeutic drug monitorin g documented in this encounter Care Teams Tinning Machine Set Up Operator Relationship Specialty Start Date End Date Bobby Das MD PCP - General 07/06/[address] [place] [address] ,[address] [place] [address] documented as of this encounter
--- OUTSIDE RECORDS SUMMARY | 2022-07-19 13:29 | XMS_ITS | Encounter Summary ---
:1940 Author Organization [facility] Address [address] [place] [address] Care Team Providers Name Role Phone Bobby Das MD Primary Care Provider Reason for Visit Reason Comments Prostate Cancer Encounter Details Date Type Department Care Team Description 02/10/2018 Radiation [facility] Aries Gutierrez alignant neoplasm Visit Radiation Oncology Felix [facility] - [address] ([facility]) (Primary 111 [facility] Dx) [facility], [address] [place] [address] [address] [place] [address] Social History Tobacco Use Types [...] encounter diagnosis was Malignant neoplasm of prostate ([facility]). Assessment: Assessment Completed By: Felix Gutierrez MD (02/10/18 2031) Radiation Therapy: Cumulative RT Dose 2400 cGy [...] Changes: None Sj Gutierrez MD Radiation Oncology [phone] (office) [phone] (pager) documented in this encounter Plan of Treatment Not on filedocumented as of this encounter Visit Diagnoses Diagnosis Malignant neoplasm of prostate (HCC-CMS) (HCC) - Primary Malignant neoplasm of prostate documented in this encounter Care Teams Hatchery Attendant Relationship Specialty Start Date End Date Bobby Das MD PCP - General 07/06/[address] [place] [address] ,[address] [place] [address] documented as of this encounter
--- OUTSIDE RECORDS SUMMARY | 2022-07-19 13:29 | XMS_ITS | Encounter Summary ---
:1940 Author Organization [facility] Address [address] [place] [address] Care Team Providers Name Role Phone Bobby Das MD Primary Care Provider Reason for Visit Reason Onset Date Comments Follow-up 02/24/2018 Appointment Related 02/24/2018 scheduled appt w/ nu rsing for Lupron injection on 04/06 Encounter Details Date Type Department Care Team Description 02/24/2018 Telephone [facility] Ama Corea, Follow -up; Appointment Urology - James campo RN Related (scheduled appt 111 [facility] w/ nursing [place] [address] injection on 04/06) [phone] Social History Tobacco Use Types Packs/Day Years Used Date Current Every Day Smoker Smokeless Tobacco: Never Used Sex Assigned at Date Recorded Not on file documented as of this encounter Miscellaneous Notes Telephone Encounter - Mague Crisostomo - 02/25/2018 1044 EDT scheduled appt w/ nursing for Lupron injection on 04/06; pt prefers it at the [place] office Telephone Encounter - Ama Corea, RN [...] on filedocumented in this encounter Care Teams End Worker Relationship Specialty Start Date End Date Bobby Das MD PCP - General 07/06/[address] [place] [address],[address] [place] [address] documented as of this encounter
--- OUTSIDE RECORDS SUMMARY | 2022-07-19 13:29 | XMS_ITS | Encounter Summary ---
:1940 Author Organization [facility] Address [address] [place] [address] Care Team Providers Name Role Phone Bobby Das MD Primary Care Provider Reason for Visit Reason Onset Date Comments Cancer 02/16/2018 Encounter Details Date Type Department Care Team Description 02/16/2018 Orders Only [facility] Isela Law Maligna nt neoplasm of prostate (HCC-CMS) (Primary Dx); Radiation Oncology - RN Andvamshi n deprivation therapy [address] [address] Social History Tobacco Use Types Packs/Day Years [...] g documented in this encounter Care Teams Social Media Marketer Relationship Specialty Start Date End Date Bobby Das MD PCP - General 07/06/[address] [place] [address] ,[address] [place] [address] documented as of this encounter
--- OUTSIDE RECORDS SUMMARY | 2022-07-19 13:29 | XMS_ITS | Encounter Summary ---
:1940 Author Organization [facility] Address [address] [place] [address] Care Team Providers Name Role Phone Bobby Das MD Primary Care Provider Reason for Visit Reason Comments Follow-up Encounter Details Date Type Department Care Team Description 12/02/2017 Office Visit [facility] Erlin José MD Malignant neoplasm of Urology - [address] ([facility]) (Primary 111 [facility] [place] [address] Pavilion, [place] [address] (Wo rk) Social History Tobacco [...] Progress Notes Chino José MD - 12/02/2017 0964 EST Chief Complaint: Chief Complaint Patient presents with ??? Follow-up HPI: Koko is a 77 y.o. male with prostate cancer. I originally saw the patient and [facility] and diagnosed him with Seale 3+4 prostate cancer associated with a PSA of 12.8. He underwent a bone scan for staging that came back negative for metastatic disease. He is seeing me today at [facility] for a Lupron injection. He started his [...] ( desire to have sex ). Some termite treater hormonal therapy is associated with the loss [...] 12/02 documented in this encounter Care Teams Termite Exterminator Helper Relationship Specialty Start Date End Date Bobby Das MD PCP - General 07/06/[address] [place] [address],[address] [place] [phone] documented as of this encounter
--- OUTSIDE RECORDS SUMMARY | 2022-07-19 13:29 | XMS_ITS | Encounter Summary ---
:1940 Author Organization [facility] Address [address] [place] [address] Care Team Providers Name Role Phone Bobby Das MD Primary Care Provider Reason for Visit Reason Comments Cancer Encounter Details Date Type Department Care Team Description 01/08/2018 Radiation Therapy [facility] Isela Law Ma lignant neoplasm of Visit Radiation Oncology - RN prostat e ([facility] Main [place] ([facility]) (Primary [address] [place]) [place] [address] Social History [...] Assessment Completed By: Isela Law RN (01/08/18 1327) Patient Education Topic: Method: Handout and Verbal [...] and get free services/meds from afar. Referrals mat worker: Yes (Shadi will meet with Santhosh Cosby MSW next week to review the DT and supportive services. ) Services: Kylee Everest: No Other: Subjective Note: General: Koko and his Ursula are here for the treatment teaching session post Fiducials being placed. Shadi and his run a [employer] in [place]. They are concerned that he might be [...] prostate documented in this encounter Care Teams Auto Bumper Straightener Relationship Specialty Start Date End Date Bobby Das MD PCP - General 07/06/[address] [place] [address] ,[address] [place] [address] documented as of this encounter
--- OUTSIDE RECORDS SUMMARY | 2022-07-19 13:29 | XMS_ITS | Encounter Summary ---
:1940 Author Organization [facility] Address [address] [place] [address] Care Team Providers Name Role Phone Bobby Das MD Primary Care Provider Reason for Visit Reason Comments Follow-up Injection Encounter Details Date Type Department Care Team Description 01/05/2018 [facility] Erlin José MD Malignant neoplasm of Urology - Main [address] [place] [address] ([facility] ([facility] (Primary [facility], [facility]) [place] [address] Pavilion, [place] [address] (Wo rk) Social History Tobacco [...] Progress Notes Chino José MD - 01/05/2018 9682 EST Chief Complaint: Chief Complaint Patient presents with ??? Follow-up Injection HPI: Koko is a 77 y.o. male with prostate cancer. Grant presented with an elevated PSA to 12.8 shaw palpable nodule and on biopsy had 2 out of 12 cores positive for Winifred 3+3 and [place] 3+4 prostate cancer. T2a. He previously had [...] Dr. Gutierrez this week See me at [facility] after radiation therapy is complete with [...] mg documented in this encounter Care Teams Hebrew Cantor Relationship Specialty Start Date End Date Bobby Das MD PCP - General 07/06/[address] [place] [address],[address] [place] [phone] documented as of this encounter
--- OUTSIDE RECORDS SUMMARY | 2022-07-19 13:29 | XMS_ITS | Encounter Summary ---
:1940 Author Organization [facility] Address [address] [place] [address] Care Team Providers Name Role Phone Bobby Das MD Primary Care Provider Reason for Visit Reason Comments Cancer Encounter Details Date Type Department Care Team Description 02/13/2018 Radiation Therapy [facility] Isela Law Ma lignant neoplasm of Visit Radiation Oncology - RN prostat e ([facility]) Main [place] (Primary Dx) [address] [place] [address] Social History Tobacco Use Types Packs/Day [...] [facility] Assessment: Assessment Completed By: Isela Law RN [...] prostate documented in this encounter Care Teams Applied Marine Physics Professor Relationship Specialty Start Date End Date Bobby Das MD PCP - General 07/06/[address] [place] [address] ,[address] [place] [address] documented as of this encounter
--- OUTSIDE RECORDS SUMMARY | 2022-07-19 13:29 | XMS_ITS | Encounter Summary ---
:1940 Author Organization [facility] Address [address] [place] [address] Care Team Providers Name Role Phone Bobby Das MD Primary Care Provider Reason for Visit Reason Comments Cancer Encounter Details Date Type Department Care Team Description 02/16/2018 Radiation Therapy [facility] Isela Law Ma lignant neoplasm of Visit Radiation Oncology - RN prostleonid e ([facility]) Main [place] (Primary Dx) [address] [place] [address] Social History Tobacco Use Types Packs/Day [...] encounter diagnosis was Malignant neoplasm of prostate ([facility]). Assessment: Assessment Completed By: Isela Law RN [...] prostate documented in this encounter Care Teams Women'S Studies Lecturer Relationship Specialty Start Date End Date Bobby Das MD PCP - General 07/06/[address] [place] [address],[address] [place] [address] documented as of this encounter
--- OUTSIDE RECORDS SUMMARY | 2022-07-19 13:29 | XMS_ITS | Encounter Summary ---
:1940 Author Organization [facility] Address [address] [place] [address] Care Team Providers Name Role Phone Bobby Das MD Primary Care Provider Reason for Visit Reason Comments Prostate Cancer Encounter Details Date Type Department Care Team Description 02/03/2018 Radiation Therapy [facility] Aries Gutierrez alignant neoplasm Visit Radiation Oncology Felix EAST MD of [facility] - [address] ([facility]) ([facility] [address] [place] [address] (Primary Dx) [facility], [address] [place] [address] [address] [place] [address] Social History Tobacco Use Types Packs/Day Years Used Date Current Every Day Smoker Smokeless Tobacco: Never Used Sex Assigned at Date Recorded Not on file documented as of this encounter Progress Notes Delores Gutierrez III, MD - 02/03/2018 4855 EDT On Treatment Visit Assessment: Koko Zamora is currently receiving radiation therapy treatment and is being seen today for his weekly on treatment visit. The encounter diagnosis was Malignant neoplasm of prostate ([facility]). Assessment: Assessment Completed By: Felix Gutierrez MD (02/03/18 4523) Radiation Therapy: Cumulative RT Dose 600 cGy [...] Changes: None Sj Gutierrez MD Radiation Oncology [phone] (office) [phone] (pager) documented in this encounter Plan of [...] documented as of this encounter Care Teams Career Services Manager Relationship Specialty Start Date End Date Bobby Das MD PCP - General 07/06/[address] [place] [address],[address] [place] [address] documented as of this encounter
--- OUTSIDE RECORDS SUMMARY | 2022-07-19 13:29 | XMS_ITS | Encounter Summary ---
:1940 Author Organization [facility] Address [address] [place] [address] Care Team Providers Name Role Phone Bobby Das MD Primary Care Provider Reason for Visit Reason Onset Date Comments Prostate Cancer 11/20/2017 Encounter Details Date Type Department Care Team Description 11/20/2017 Telephone [facility] Aries Gutierrez Cancer Radiation Oncology - III, [address] [address] [address]ilion, [place] [address] (Wo rk) Social History Tobacco Use Types Packs/Day Years Used Date Current Every Day Smoker Smokeless Tobacco: Never Used Sex Assigned at Date Recorded Not on file documented as of this encounter Miscellaneous Notes Telephone Encounter - Delores Gutierrez III, MD - 11/20/2017 8082 EST RADIATION ONCOLOGY I spoke with Mr. Zamora by phone today. [facility] earlier todayreveals no evidence of metastatic disease. He is eager to start therapy. I discussed his care with Dr. José. We will coordinate initiation of androgen deprivation as soon as practical. He will return for fiducial marker placement in approximately 6 weeks, anticipate we will start his treatment approximately 2 months after his first injection. Sj Gutierrez MD Radiation Oncology [phone] (office) [phone] (pager) This note has been prepared with voice recognition software. Please excuse estate planner errors. documented in this encounter Plan of Treatment Not on filedocumented as of this encounter Visit Diagnoses Diagnosis Malignant neoplasm of prostate (HCC-CMS) (HCC) - Primary Malignant neoplasm of prostate documented in this encounter Care Teams Regulatory Affairs Strategy Specialist Relationship Specialty Start Date End Date Bobby Das MD PCP - General 07/06/[address] [place] [address],[address] [place] [address] documented as of this encounter
--- OUTSIDE RECORDS SUMMARY | 2022-07-19 13:29 | XMS_ITS | Encounter Summary ---
:[address] [facility] Address [address] [place] [address] Care Team Providers Name Role Phone Unknown, Provider Primary Care Provider Encounter Details Date Type Department Care Team Description 07/03/2015 Hospital Encounter [facility]- Devi Unknown, Provider, [facility] 0 [facility] [phone] [place] [address] (Work) [phone] Social History Tobacco Use Types Packs/Day Years Used Date Never Assessed Sex Assigned at Date Recorded Not on file documented as of this encounter Discharge Disposition Disposition Code Departure Means Destination Home or Self [facility] documented in this encounter Plan of Treatment Not on filedocumented as of this encounter Visit Diagnoses Not on filedocumented in this encounter Care Teams Orthopedic Podiatrist Relationship Specialty Start Date End Date Unknown, Provider, PCP - General 07/03/15 07/05/15 documented as of this encounter
--- OUTSIDE RECORDS SUMMARY | 2022-07-19 13:29 | XMS_ITS | Encounter Summary ---
:1940 Author Organization [facility] Address [address] [place] [address] Care Team Providers Name Role Phone Bobby Das MD Primary Care Provider Reason for Visit Reason Comments Prostate Cancer Encounter Details Date Type Department Care Team Description 02/17/[address] [facility] Aries Gutierrez alignant neoplasm Visit Radiation Oncology Felix EAST MD of [facility] - [address] ([facility]) (Primary 111 [facility] Dx) [facility], [address] [place] [address] [address] [place] [address] Social History Tobacco Use Types Packs/Day Years Used Date Current Every Day Smoker Smokeless Tobacco: Never Used Sex Assigned at Date Recorded Not on file documented as of this encounter Progress Notes Delores Gutierrez III, MD - 02/17/2018 1118 EDT On Treatment Visit Assessment: Koko Zamora is currently receiving radiation therapy treatment and is being seen today for his weekly on treatment visit. The encounter diagnosis was Malignant neoplasm of prostate ([facility]). Assessment: Assessment Completed By: Felix Gutierrez MD (02/17/18 4081) Radiation Therapy: Cumulative RT Dose 3600 cGy [...] Changes: None Sj Gutierrez MD Radiation Oncology [phone] (office) [phone] (pager) documented in this encounter Plan of Treatment Not on filedocumented as of this encounter Visit Diagnoses Diagnosis Malignant neoplasm of prostate (HCC-CMS) (HCC) - Primary Malignant neoplasm of prostate documented in this encounter Care Teams Vacuum Metalizer Operator Relationship Specialty Start Date End Date Bobby Das MD PCP - General 07/06/[address] [place] [address] ,[address] [place] [address] documented as of this encounter
--- OUTSIDE RECORDS SUMMARY | 2022-07-19 13:29 | XMS_ITS | Encounter Summary ---
:1940 Author Organization [facility] Address [address] [place] [address] Care Team Providers Name Role Phone Bobby Das MD Primary Care Provider Encounter Details Date Type Department Care Team Description 01/16/2018 Results Only [facility] Aries Gutierrez Imaging Radiation Oncology - III, [facility] 111 [facility] [address] [place] [address] Pavilion, [place] [address] (Wo rk) Social History Tobacco Use Types [...] on filedocumented in this encounter Care Teams Reproduction Machine Loader Relationship Specialty Start Date End Date Bobby Das MD PCP - General 07/06/[address] [place] [address] ,[address] [place] [address] documented as of this encounter
--- OUTSIDE RECORDS SUMMARY | 2022-07-19 13:29 | XMS_ITS | Encounter Summary ---
:1940 Author Organization [facility] Address [address] [place] [address] Care Team Providers Name Role Phone Bobby Das MD Primary Care Provider Encounter Details Date Type Department Care Team Description 11/20/2017 Results Only [facility]- Unknown, PRISM ProviderMD [phone] Social History Tobacco Use Types Packs/Day Years [...] filedocumented in this encounter Care Teams Hand Deicer Element Winder Relationship Specialty Start Date End Date Bobby Das MD PCP - General 07/06/[address] [place] [address],[address] [place] [address] documented as of this encounter
--- OUTSIDE RECORDS SUMMARY | 2022-07-19 13:29 | XMS_ITS | Encounter Summary ---
:1940 Author Organization [facility] Address [address] [place] [address] Care Team Providers Name Role Phone Bobby Das MD Primary Care Provider Encounter Details Date Type Department Care Team Description 01/08/2018 Procedure visit [facility] Aries Gutierrez Radiation Oncology - IIIMD [address] [address] [address], Level [phone] (Wo rk) Social History Tobacco Use Types [...] prostate gland. DATE OF SERVICE: 01/08/2018 INDICATIONS: [id number], PSA 12.8 Winifred score 3+4 = 7 [...] documented as of this encounter Care Teams Diver Tender Relationship Specialty Start Date End Date Bobby Das MD PCP - General 07/06/[address] [place] [address] ,[address] [place] [address] documented as of this encounter
--- OUTSIDE RECORDS SUMMARY | 2022-07-19 13:29 | XMS_ITS | Encounter Summary ---
:1940 Author Organization [facility] Address [address] [place] [address] Care Team Providers Name Role Phone Bobby Das MD Primary Care Provider Reason for Visit Reason Comments Cancer Encounter Details Date Type Department Care Team Description 01/08/2018 Radiation Therapy [facility] Isela Law Ma lignant neoplasm of Visit Radiation Oncology - RN prostat e ([facility]) Main [place] ([facility]) (Primary [address] [facility] Dx) [place] [address] Social History Tobacco Use Types [...] prostate documented in this encounter Care Teams Marketing And Outreach Coordinator Relationship Specialty Start Date End Date Bobby Das MD PCP - General 07/06/[address] [place] [address],[address] [place] [phone] documented as of this encounter
--- OUTSIDE RECORDS SUMMARY | 2022-07-19 13:29 | XMS_ITS | Encounter Summary ---
:1940 Author Organization [facility] Address [address] [place] [address] Care Team Providers Name Role Phone Bobby Das MD Primary Care Provider Encounter Details Date Type Department Care Team Description 01/16/2018 Documentation Visit [facility] Santhosh Cosby Radiation Oncology - Main [address] [phone] Social History Tobacco Use Types Packs/Day Years Used Date Current Every Day Smoker Smokeless Tobacco: Never Used Sex Assigned at Date Recorded Not on file documented as of this encounter Progress Notes Santhosh Cosby - 01/16/2018 0361 EST SOCIAL WORK ASSESSMENT: Amount of Distress: [...] Prostate Cancer Living Arrangements: Pt lives in [place], [place] with his . They operate a [...] social work as needed. ASH Antonio phone [phone] pager [phone] documented in this encounter Plan of Treatment Not on filedocumented as of this encounter Visit Diagnoses Not on filedocumented in this encounter Care Teams Cell Repairer Relationship Specialty Start Date End Date Bobby Das MD PCP - General 07/06/[address] [place] [address],[address] [place] [phone] documented as of this encounter
--- OUTSIDE RECORDS SUMMARY | 2022-07-19 13:29 | XMS_ITS | Encounter Summary ---
:1940 Author Organization [facility] Address [address] [place] [address] Care Team Providers Name Role Phone Unknown, Provider Primary Care Provider Encounter Details Date Type Department Care Team Description 07/03/2015 Results Only [facility]- PRISM Abby Das MD [phone] [place] [address],[address] [place], [place] [phone] (Wo rk) Social History [...] 8:54 EDT) Pathology Report: SURGICAL PATHOLOGY REPORT [facility] Reports generated via electronic interface contain abram ginal data; LABORATORY however they are lacking the format of the original re port. SERVICES Caution should be taken when reading/interpreting unfo rmatted reports. Name: ? ETTA BAH ? Accession #: ? [id number] ? : ? 1940 (Age: 74) ??M ? Collect Date: ? 07/03/2015 ? Location: ? [facility] ? Receive Date: ? 07/04/20 15 ? Provider: ABBY DAS MD Copy to: ? Final Pathologic Diagnosis: SKIN OF MORMONISM, RIGHT, EXCISION: - Basal cell carcinoma, infiltrative [...] City/State/ZIP Code Phon e Number [facility] [address] [place] [address] SERVICES documented in this encounter Visit Diagnoses Not on filedocumented in this encounter Care Teams Preflight Mechanic Relationship Specialty Start Date End Date Unknown, Provider, PCP - General 07/03/15 07/05/15 documented as of this encounter
--- OUTSIDE RECORDS SUMMARY | 2022-07-19 13:29 | XMS_ITS | Encounter Summary ---
:1940 Author Organization [facility] Address [address] [place] [address] Care Team Providers Name Role Phone Bobby Das MD Primary Care Provider Reason for Visit Reason Onset Date Comments Medication Management 11/21/2017 Encounter Details Date Type Department Care Team Description 11/21/2017 Orders Only [facility] Radiation De Law RN Oncology - [address] [phone] Social History Tobacco Use Types Packs/Day Years [...] on filedocumented in this encounter Care Teams Insurance Consultant Relationship Specialty Start Date End Date Bobby Das MD PCP - General 07/06/[address] [place] [address] ,[address] [place] [address] documented as of this encounter
[2022-07-19 13:30] LABS: Prothrombin Time 10.4 sec (9.3-11.0)
[2022-07-19] MEDS: ACETAMINOPHEN 1,000 MG/100 ML BTL 400 MG IVPB (13:33)
[2022-07-19] MEDS: Normal Saline Flush 10 ML SYR IVP (13:37)
[2022-07-19 13:53] LABS: ALT 26 U/L (16-63); AST 21 U/L (15-37); Albumin 3.4 g/dL (3.4-5.0); Alkaline Phosphatase 73 U/L (46-116); Anion Gap 7.8 mmol/L (3-11); BUN 22 mg/dL (7-18); Bilirubin, Total 0.6 mg/dL (0.2-1.0); CO2 27.2 mmol/L (21.0-32.0); CREATININE 0.8 mg/dL (0.70-1.30); Calcium 8.4 mg/dL (8.5-10.1); Chloride 105 mmol/L (98-107); Estimated GFR 90.02 (mL/min/1.73m2); Glucose 125 mg/dL (74-106); Magnesium 1.8 mg/dL (1.8-2.4); Potassium 3.7 mmol/L (3.5-5.1); Sodium 140 mmol/L (136-145); Total Protein 6.9 g/dL (6.4-8.2); Troponin I < 50 ng/L (<or=60)
[2022-07-19 13:59] LABS: Diff Comment RBC Morph Reviewed
[2022-07-19 14:00] LABS: Hypochromasia 1+
--- NOTE | 2022-07-19 14:00 | DI.US_ITS ---
Exam(s) US LOWER EXTREMITY VENOUS LT EXAM: US LOWER EXTREMITY VENOUS LT CLINICAL HISTORY: left leg edema TECHNIQUE: Left lower extremity venous ultrasound performed using grayscale, color-flow, and spectra l Doppler analysis. COMPARISON: No exams were available for comparison FINDINGS: The left common femoral, femoral and popliteal veins demonstrate normal compressibility, augmentation , and color Doppler. The posterior tibial veins are patent. The saphenofemoral junction is unremarka ble. There is no evidence of a Spence cyst. The soft tissues are unremarkable. IMPRESSION: 1. No evidence of a left lower extremity DVT. 2. Results of this exam have been verbally communicated with provider. DATA REPOSITORY:
[2022-07-19] MEDS: Normal Saline 500 ML IV (14:32)
== END 2022-07-19 16:23 | disposition home or self-care (01) ==
PROVIDERS: Emergency Medicine; Emergency Provider Emergency Medicine; PCP Family Medicine
DX: E86.0 Dehydration (principal); R60.0 Localized edema; I25.2 Old myocardial infarction; E11.9 Type 2 diabetes mellitus without complications; Z87.891 Personal history of nicotine dependence; Z95.5 Presence of coronary angioplasty implant and graft; Z79.01 Long term (current) use of anticoagulants; Z79.02 Long term (current) use of antithrombotics/antiplatelets
CPT/HCPCS: 36415; 80053; 86850; 86900; 86901; 93005; 96361; 96374; 99284; 83735; 84484; 85025; 85610; 93010; 93971; J0131

== ENCOUNTER 2022-07-22 09:53 | Outpatient (CLI) | payer MEDICARE, SELFPAY ==
[2022-07-22 10:14] LABS: HCT 25.8 % (40.0-50.0); HGB 7.9 g/dL (13.5-17.5); MCH 26.7 pg (27.0-33.0); MCHC 30.6 % (32.0-36.0); MCV 87 fL (80-95); MPV 10.4 fL (8.0-11.0); Platelet Count 210 10^3/uL (130-400); RBC 2.96 10^6/uL (4.36-5.78); RDW 16.7 % (11.8-14.1); RDW-SD 52.5 fL; WBC 8.11 10^3/uL (4.4-10.8)
[2022-07-22 10:47] LABS: Anion Gap 7.1 mmol/L (3-11); BUN 19 mg/dL (7-18); CO2 27.9 mmol/L (21.0-32.0); CREATININE 0.9 mg/dL (0.70-1.30); Calcium 8.5 mg/dL (8.5-10.1); Chloride 107 mmol/L (98-107); Estimated GFR 86.88 (mL/min/1.73m2); Glucose 173 mg/dL (74-106); Potassium 4.1 mmol/L (3.5-5.1); Sodium 142 mmol/L (136-145)
== END 2022-07-22 09:54 | disposition home or self-care (01) ==
LOC: LBO 09:53
PROVIDERS: PCP Family Medicine; Visit Provider Emergency Medicine
DX: D64.9 Anemia, unspecified (principal)
CPT/HCPCS: 36415; 80048; 85027

== ENCOUNTER 2022-08-05 08:55 | Outpatient (RCR) | payer MEDICARE, SELFPAY ==
--- OUTSIDE RECORDS SUMMARY | 2022-07-12 09:38 | XMS_ITS | Encounter Summary ---
:1940 Author Organization [facility] [place] [address] Care Team Providers Name Role Phone Bobby Das MD Primary Care Provider Reason for Visit Reason Comments Skin Lesion Consultation (Routine) - Closed Specialty Diagnoses / Procedures Referred By Contact Refer red To Contact Dermatology Diagnoses Lesion on right eye = hx of skin cancer Bobby Das MD [facility] Dermatology Procedures Lesion on right eye = hx of skin cancer [address] [facility] [address] [place] [address] [place] [address] Fax: Referral ID Status Reason Start Date Expiration Date Visits Requ ested Visits Authorized [id number] Closed 04/22/2022 04/22/2023 1 1 Encounter Details Date Type Department Care Team Description 06/10/2022 Office Visit Dermatology at [facility], Neoplasm of Road unspecified behavior [address] [facility] [place] [address] [address] and skin [phone] DERMATOLOGY [place] [address] Social History Tobacco Use Types Packs/Day Years [...] nevi N SCC N BCC 2015: right evangelical, BCC s/p mohs 09/2018: right eyebrow, BCC [...] N/A RTC: Pending pathology []Note routed to audio visual secretary []Recall placed in scheduling system []Appointment scheduled at checkout Scribe attestation: Sidney Higgins and Loretta Gomez CMA performed the documentation for this encounter in the presence of and acting as a scribe for Noel Burgos MD. I performed the above scribed service and agree with the accuracy of the documentation in this encounter. Reviewed and signed by: Noel Burgos MD Dermatology [facility] Loretta Cohen MD - 06/10/2022 11:00 AM EDT DERMATOLOGY TELEPHONE NOTE Koko Zamora 06/17/2022 [id number] Reason for call: Discuss biopsy results I [...] Negra Collins MD [facility] GASTROENTEROLOGY DEPT CHECK, [place] [address] (Wo bob) 09/05/2022 Appointment Cardiology Trinity Reid MD [facility] CARDIOLOGY CHECK, [place] [address] (Rebekah rojas) 09/05/2022 Office Visit Cardiology Trinity Reid MD [facility] ER DR CARDIOLOGY [place] [address] (Wo rk) documented as of this encounter [...] PM 2 1:20 EDT PM EDT Narrative [facility] - 06/10/2022 1:20 PM EDT Specimen requisition ordered. ??Separate Pathology report to follow Loretta Cohen MD PATHOLOGY/CYTOLOGY ORDERABLE S Performing Organization Address City/State/Z[place] [address] Surgical Pathology Report (06/10/2022 11:43 AM EDT) Component Value Ref Test Analysis Performed At [facility] gist Range Method Time Signature Surgical [id number] ? Location: [facility] Report The signing pathologist has (i) examined the relevant preparation(s) for the [facility] specimen(s) and (ii) rendered or confirmed the diagnosis(es) . HOSPITAL LABORATORY . ?Surgic al Pathology DIAGNOSIS Right lateral eyebrow, skin shave biopsy: - ??Basal cell carcinoma, no dular pattern, transected at the peripheral and deep specimen edges Electronically signed by: ?Delroy CARCAMO, PhD, Ian Verified: ??06/12/2022 14:33 ??Dermatopathologist Performed at: ??[place] [place], [place], [place] SPECIMEN(S) SUBMITTED A - right lateral [...] Organization Address City/State/[place] [address] [facility] [address] documented in this encounter Visit Diagnoses Diagnosis Neoplasm of unspecified behavior of bone , soft tissue, and skin documented in this encounter Care Teams Tennis Racket Repairer Relationship Specialty Start Date End Date Bobby Das MD PCP - General 10/02/[address] [place] [address] [place] [address] documented as of this encounter
--- OUTSIDE RECORDS SUMMARY | 2022-07-12 09:38 | XMS_ITS | Encounter Summary ---
:1940 Author Organization [facility] [place] [address] Care Team Providers Name Role Phone Abby Das MD Primary Care Provider Encounter Details Date Type Department Care Team Description 06/25/2022 Anesthesia Event Gastroenterology at [facility] Abby Alfaro MD [facility] [place] [address] [place] [address] [facility] David Lewis CRNA [facility] [place] [address] [place] [address] [place] [address] Anesthesia Record Procedure Summary Procedure Name [...] 1526; Left, lateral, 05/15/22 1526 by lisa Hrering; leg Jaylene Gomez RN Incision 05/15/22; 1527; Left, medial, 05/15/22 1527 by lisa Garner; leg Jaylene Gomez RN PIV 06/25/22; 1046; median cubital 06/25/22 1046 by vein (antecubital fossa), Mame Peterson RN left; qhou-wle-tcjfuy catheter system; 18 gauge; Present on admission PIV 06/25/22; 1046; great 06/25/22 1046 by saphenous vein (medial side of Mame Peterson RN leg), right; edej-nxu-lxfkcr catheter system; Anatomical Landmarks; 18 gauge; Present [...] Procedure Summary Date: 06/25/22 Room / Location: [facility] ENDO 4 / [facility] ENDOSCOPY Anesthesia Start: 1101 Anesthesia Stop: 1202 Procedures: EGD, UPPER GI ENDOSCOPY (N/A Trunk) COLONOSCOPY; W CONTROL OF BLEEDING, ANY METHOD (N/A Trunk) SMALL BOWEL ENTEROSCOPY (N/A Trunk) Diagnosis: (melena +./-) Surgeons: Giovani Ponce MD Responsible Provider: Abby Alfaro MD Anesthesia Type: MAC ASA Status: 3 All Anesthesia Providers: Anesthesiologist: Abby Alfaro MD WATER PUMPER: David Gill CRNA Vitals Value Taken Time BP 102/85 06/25/22 1240 Temp Pulse Resp 16 06/25/22 1220 SpO2 95 % 06/25/22 1245 Pain Level 0 06/25/22 1220 Vitals shown include unvalidated device data. Patient Location: PACU/[facility] Level of Consciousness: Awake and Alert [...] Date Noted ??? Coronary artery disease involving [place] coronary artery of [place] heart without angina cbnbwryw96/04/2022 ??? HFrEF (heart failure with reduced ejection [...] IR Biopsy Spine 07/20/2019 Abby Marshall MD [facility] INTERVENTIONL RAD ??? IR VERTEBROPLASTY LUMBAR MULTIPLE LEVELS 07/20/2019 IR Vertebroplasty Lumbar Multiple Levels 07/20/2019 Abby Marshall MD [facility] INTERVENTIONL RAD ??? IR VERTEBROPLASTY THORACIC SINGLE LEVEL 10/25/2020 IR Vertebroplasty Thoracic Single Level 10/25/2020 Matt Chisholm MD [facility] INTERVENTIONL RAD ??? PRO EMBLC/THRMBC FEMORAL POPLITEAL AORTO-ILIAC ARTERY Left 05/15/2022 EMBOLECTOMY OR THROMBECTOMY, FEMOROPOPLITEAL, AORTOILIAC ARTERY BY LEG INCISION (WRVU 19.48) performed by Fito Summers MD at [facility] MAIN OR ??? PRO UPPER GI ENDOSCOPY, CTRL BLEED 05/31/2022 EGD, W CONTROL OF BLEEDING, ANY METHOD performed by Giovani Ponce MD at [facility] ENDOSCOPY ??? PRO UPPER GI ENDOSCOPY, DIAGNOSTIC N/A 05/31/2022 EGD, UPPER GI ENDOSCOPY performed by Giovani Ponce MD at [facility] ENDOSCOPY Social History Tobacco Use ??? [...] risks discussed with patient. Plan discussed with WATER PUMPER. Anesthesia Screening documented in this encounter Plan of Treatment Upcoming Encounters Date Type Specialty Care Team Description 08/08/2022 Office Visit Gastroenterology Negra Collins MD [facility] GASTROENTEROLOGY DEPT [place], [place] [address] (Wo rk) 09/05/2022 Appointment Cardiology Trinity Reid MD [facility] CARDIOLOGY [place], [place] [address] (Wo rk) 09/05/2022 Office Visit Cardiology Trinity Reid MD [facility] CARDIOLOGY [place], [place] [address] (Wo rk) documented as of [...] 1202, Anesthesia Intra-op PHENYLephrine in NS (PF) (MARLNE-SYNEPHRINE) Given 06/25/2022 11:54 AM EDT 80 mcg [...] mg documented in this encounter Care Teams Furniture Sprayer Relationship Specialty Start Date End Date Abby Das MD PCP - General 10/02/[address] [place] [address] [place] [phone] documented as of this encounter
--- OUTSIDE RECORDS SUMMARY | 2022-07-12 09:38 | XMS_ITS | Encounter Summary ---
:1940 [address] [facility] [place] [address] Care Team Providers Name Role Phone Bobby Das MD Primary Care Provider Encounter Details Date Type Department Care Team Description 06/23/2022 Telephone Gastroenterology at [facility] Alan August MD [facility] [place] [address] GASTROENTEROLOGY DEPT [phone] [place], [place] [address] (Wo rk) Social History Tobacco [...] Date: 06/23/2022 Time: 2:27 AM Referring Location: [facility] Referring Provider: Shahram Urena DC HPI: This [...] MD [facility] GASTROENTEROLOGY DEPT [place], [place] [address] ( rk) 09/05/2022 Appointment Cardiology Trinity Reid MD [facility] CARDIOLOGY [place], [place] [address] ( rk) 09/05/2022 Office Visit Cardiology Trinity Reid MD [facility] CARDIOLOGY [place], [place] [address] ([facility]) documented as of this encounter Visit Diagnoses Not on filedocumented in this encounter Care Teams Research Aide Relationship Specialty Start Date End Date Bobby Das MD PCP - General 10/02/[address] [place] [address] [place] [phone] documented as of this encounter
--- OUTSIDE RECORDS SUMMARY | 2022-07-12 09:38 | XMS_ITS | Encounter Summary ---
:1940 Author Organization [facility] Address [facility] [place] [address] Care Team Providers Name Role Phone Bobby Das MD Primary Care Provider Encounter Details Date Type Department Care Team Description 06/24/2022 Telephone [place]ology [place] [facility] [place] August [place] [facility] [place] [address] GASTROENTEROLOGY DEPT [phone] [place], [place] [address] (Wo rk) Social History Tobacco [...] data. [facility]. [...] Collins MD [facility] GASTROENTEROLOGY DEPT [place], [place] [address] (Wo rk) 09/05/2022 Appointment Cardiology Trinity Reid MD [facility] CARDIOLOGY [place], [place] [address] (Wo rk) 09/05/2022 Office Visit Cardiology Trinity Reid MD [facility] CARDIOLOGY [place], [place] [address] (Wo rk) documented as of this encounter Visit Diagnoses Not on filedocumented in this encounter Care Teams Chocolate Temperer Relationship Specialty Start Date End Date Bobby Das MD PCP - General 10/02/[address] [place] [address] [place] [phone] documented as of this encounter
--- OUTSIDE RECORDS SUMMARY | 2022-07-12 09:38 | XMS_ITS | Encounter Summary ---
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 Alan Reid Cardiac Rehab, MD Kurt [address] [place], [place] CARDIOLOGY [address] [place] [address] Referral ID Status Reason Start Date Expiration Date Visits V isits Requested Authorized [id number] Closed Consult, 06/20/2022 12/17/2022 36 36 Test & Treat Encounter Details Date Type Department Care Team Description 06/20/2022 Orders Only Cardiology at [facility] Alan Reid HFrEF (heart failure with re duced ejection fraction); [facility] MD Kurt Coronary artery disease involving n[place]ana coronary artery of [place] heart [place] [address] CARDIOLOGY [phone] [place], [place] [address] (Wo rk) Social History Tobacco [...] [facility] GASTROENTEROLOGY DEPT [place], [place] 0[address] (Wo rk) 09/05/2022 Appointment Cardiology Trinity Reid MD [facility] CARDIOLOGY [place], [place] [address] (Wo rk) 09/05/2022 Office Visit Cardiology Trinity Reid MD [facility] CARDIOLOGY [place], [place] [address] (Wo rk) Scheduled Referrals Name Type Priority Associated Diagnoses [facility] to Outpatient Referral Routine HFrEF (heart failure Ordered: Cardiac Rehab with reduced 06/20/2022 ejection fractio n) Coronary artery disease involving nenana coronary artery of nenana heart without angina pectoris documented as of this encounter Visit Diagnoses Diagnosis HFrEF (heart failure with reduced ejecti on fraction) Coronary artery disease involving n[place]ana coronary artery of nenana heart without angina pectoris documented in this encounter Care Teams Incinerator Plant Laborer Relationship Specialty Start Date End Date Bobby Das MD PCP - General 10/02/[address] [place] [address] [place] [phone] documented as of this encounter
--- OUTSIDE RECORDS SUMMARY | 2022-07-12 09:38 | XMS_ITS | Encounter Summary ---
:1940 Author Organization [facility] [place] [address] Care Team Providers Name Role Phone Bobby Das MD Primary Care Provider Reason for Referral Diagnostic Test (Routine) - Authorized Specialty Diagnoses / Procedures Referred By Contact Refer red To Contact Cardiology Diagnoses HFrEF (heart failure with reduced ejection fraction) Alan Reid MD [facility] Non-Inv Card Lab Procedures [place]chocardi[place] [address] [place] [address] Fax: Referral ID Status Reason Start Expiration Visits Visits Date Date Requested Authorized [id number] Authorized Specialty 06/13/2022 06/13/2023 1 1 Service Requested Reason for Visit Consultation (Routine) - Closed Specialty Diagnoses / Procedures Referred By Contact Refer red To Contact Cardiology Diagnoses HFrEF (heart failure with reduced ejection fraction) Paroxysmal atrial fibrillation Post-hospital follow-up, s/p PCI with stenting, heart failure Nasrin Parra PA [facility] [address] [facility] [place] [address] [place] [address] Referral ID Status Reason Start Date Expiration Date Visits V isits Requested Authorized [id number] Closed Consult, 05/21/2022 05/21/2023 1 1 Test & Treat Encounter Details Date Type Department Care Team Description 06/13/2022 Office [address] [facility] Alan Reid Coronary artery disease invo lving standing rock coronary artery of standing [place] heart without angina pectoris; [facility] MD Kurt HFrEF (heart failure with reduced ejecti on fraction); Drive [facility] Permanent [place] [address] CARDIOLOGY [phone] [place], [place] [address] Social History Tobacco Use Types [...] from the original note were not included. [facility] NAOMY [place] [address] CARDIOLOGY OUTPATIENT PROGRESS NOTE PRIMARY CARE PROVIDER: Bobby Das MD REFERRING PROVIDER: Nasrin Parra PROBLEM LIST: Patient Active Problem List Diagnosis ??? 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 Hypertriglyceridemia ??? Adhesive [...] 3 ??? fluticasone propionate (FLONASE) 50 mcg/actuation [place], Suspension 1 spray by Each Nare route [...] healing well. Markedly diminished left radial pulse. 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 Psych: Appropriate affect. Labs: Lab [...] device therapy possiblyincluding AV node ablation and PIPEMAN-D. 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 documented in this encounter Plan of Treatment Upcoming Encounters Date Type Specialty Care Team Description 08/08/2022 Office Visit Gastroenterology Negra Collins MD [facility] DR GASTROENTEROLOGY DEPT [place], [place] [address] (Wo rk) 09/05/2022 Appointment Cardiology Trinity Reid MD [facility] CARDIOLOGY [place], [place] [address] (Wo rk) 09/05/2022 Office Visit Cardiology Trinity Reid MD [facility] CARDIOLOGY [place], [place] [address] (Wo rk) Scheduled Orders Name Type Priority Associated Order Schedule Diagnoses Echocardiogram Echocardiography Routine HFrEF (heart Expected: Transthoracic failure with 08/13/2022, reduced ejection Expires: fraction) 02/12/2023 documented as of this encounter Visit Diagnoses Diagnosis 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
--- OUTSIDE RECORDS SUMMARY | 2022-07-12 09:38 | XMS_ITS | Encounter Summary ---
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 Loretta Cohen MD Leboeuf, Matthew R, MD [facility] [address] [place] [address] [place] [address] Fax: Referral ID Status Reason Start Date Expiration Visits Visits Date Requested Authorized [id number] Authorized Consult, 06/17/2022 06/17/2023 1 1 Test & Treat Encounter Details Date Type Department Care Team Description 06/17/2022 Orders Only Dermatology at [facility] Amanda Basal cell carcinoma Nicol CARCAMO (BCC) of right [address] [place] [address] DERMATOLOGY [place], [place] [address] Social History Tobacco Use Types [...] 08/08/2022 Office Visit Gastroenterology Negra Collins MD [facility] GASTROENTEROLOGY DEPT [place], [place] [address] (Wo rk) 09/05/2022 Appointment Cardiology Trinity Reid MD [facility] CARDIOLOGY [place], [place] [address] (Wo rk) 09/05/2022 Office Visit Cardiology Trinity Reid MD [facility] CARDIOLOGY [place], [place] [address] (Wo rk) Scheduled Referrals Name Type Priority Associated Order Schedule Diagnoses Referral to Outpatient Referral Routine Basal cell Ordered: Dermatology carcinoma (BCC) of 2 right forehead documented as of this encounter Visit Diagnoses Diagnosis Basal cell carcinoma (BCC) of right fore head documented in this encounter Care Teams Coning Machine Operator Relationship Specialty Start Date End Date Bobby Das MD PCP - General 10/02/[address] [place] [address] [place] [phone] documented as of this encounter
--- OUTSIDE RECORDS SUMMARY | 2022-07-12 09:38 | XMS_ITS | Encounter Summary ---
:1940 Author Organization [facility] [place] [address] Care Team Providers Name Role Phone Bobby Das MD Primary Care Provider Encounter Details Date Type Department Care Team Description 06/19/2022 Telephone Cardiology at [facility] Kourtney Jimenez, [facility] [place] [address] Social History Tobacco Use Types Packs/Day [...] MD [facility] GASTROENTEROLOGY DEPT [place], [place] [address] (Wo rk) 09/05/2022 Appointment Cardiology Trinity Reid MD [facility] CARDIOLOGY [place], [place] [address] (Wo rk) 09/05/2022 Office Visit Cardiology Trinity Reid MD [facility] ER CARDIOLOGY [place], [place] [address] (Wo rk) documented as of this encounter Visit Diagnoses Not on filedocumented in this encounter Care Teams Mapping Supervisor Relationship Specialty Start Date End Date Bobby Das MD PCP - General 10/02/[address] [place] [address] [place] [phone] documented as of this encounter
--- OUTSIDE RECORDS SUMMARY | 2022-07-12 09:38 | XMS_ITS | Encounter Summary ---
:1940 Author Organization [facility] [place] [address] Care Team Providers Name Role Phone Bobby Das MD Primary Care Provider Encounter Details Date Type Department Care Team Description 07/01/2022 Telephone Dermatology at [facility], Zainab Dupree, PROOFER PREPRESS [address] [place] [address] Social History Tobacco Use Types Packs/Day [...] [facility] DR GASTROENTEROLOGY DEPT [place], [place] [address] (Wo rk) 09/05/2022 Appointment Cardiology Trinity Reid MD [facility] CARDIOLOGY [place], [place] [address] (Wo rk) 09/05/2022 Office Visit Cardiology Trinity Reid MD [facility] CARDIOLOGY [place], [place] [address] (Wo rk) documented as of this encounter Visit Diagnoses Not on filedocumented in this encounter Care Teams Field Artillery Crewmember Relationship Specialty Start Date End Date Bobby Das MD PCP - General 10/02/[address] [place] [address] [place] [phone] documented as of this encounter
--- OUTSIDE RECORDS SUMMARY | 2022-07-12 09:38 | XMS_ITS | Encounter Summary ---
:1940 [place] [address] Care Team Providers Name Role Phone Bobby Das MD Primary Care Provider Encounter Details Date Type Department Care Team Description 06/13/2022 Tech Visit Vascular Lab at [facility], Dominga [place] [address] Social History Tobacco Use Types Packs/Day [...] Negra Collins MD [facility] DR GASTROENTEROLOGY DEPT [place], [place] [address] (Wo rk) 09/05/2022 Appointment Cardiology Trinity Reid MD [facility] CARDIOLOGY [place], [place] [address] (Wo rk) 09/05/2022 Office Visit Cardiology Trinity Reid MD [facility] CARDIOLOGY [place], [place] [address] (Wo rk) documented as of this encounter Procedures Procedure Name Priority Date/Time Associated Diagnosis Comme nts JOSSELYN, LEGS, MULTIPLE Routine 06/13/2022 7:13 AM Limb ischemia R esults for this LEVELS EDT procedure are i n the results section. documented in this encounter Results JOSSELYN, legs, multiple levels (06/13/2022 7:13 AM EDT) Component Value Ref Test Analysis Performed At [facility] Range Method Time Signature VB Text Department: Vascular Surgery Lab VASCUBASE Report Patient: [id number] (ETTA BAH) CPT: 25966 Referring Physician: FITO SUMMERS ?? 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 Diabetes mellitus: no Findings: Right [...] disorder documented in this encounter Care Teams Power House Engineer Relationship Specialty Start Date End Date Bobby Das MD PCP - General 10/02/[address] [place] [address] [place] [phone] documented as of this encounter
--- OUTSIDE RECORDS SUMMARY | 2022-07-12 09:38 | XMS_ITS | Clinical Summary ---
:1940 Author Organization [facility] [place] [address] Care Team Providers Name Role Phone Bobby [...] 04/12/2021 Active (FLONASE) 50 mcg/actuation Each Nare Thayer, Suspension route daily as needed. fluorouraciL (EFUDEX) [...] Problem Noted Date Coronary artery disease involving [place] coronary priscilla ry of [place] heart 06/13/2022 without angina pectoris Overview: 05/20/22 [...] therapy possibly including AV node ablation and RELATIONSHIP MANAGEMENT LEAD-D. Permanent atrial fibrillation 06/13/2022 Last Assessment & [...] consideration of AV no de ablation and RELATIONSHIP MANAGEMENT LEAD-D Limb ischemia 05/15/2022 History of basal cell carcinoma 05/31/2014 Basal cell carcinoma 03/29/2014 Verruca vulgaris 03/29/2014 AK (actinic keratosis) 03/29/2014 GIB (gastrointestinal bleeding) 06/28/2011 Overview: Secondary to 3-4 ASA/day, required admis lynette and blood transfusion MVP (mitral valve prolapse) s/p repair 06/28/2011 Overview: Surgery done at [facility] in 2 001 Hypertriglyceridemia 06/28/2011 [...] Hicks MD Coronary priscilla ry disease involving [place] coronary artery of [place] heart without angina pectoris 06/19/2022 Telephone Cardiology Kourtney Jimenez RN 06/17/2022 Orders Only Dermatology Loretta Cohen Basal cell c carlos Paez MD (BCC) of right forehead 06/13/2022 Office Visit Cardiology Jeanette, Coronary artery disease involving [place] coronary artery of [place] heart without angina pectoris; Alan Hicks MD [...] Gastroenterology Elmer Johnson MD Drost, Alexander J, HEAD OF CYTOGENETICS 05/31/2022 Surgery Gastroenterology Giovani Ponce UPPE R GI M, MD ENDOSCOPY 05/31/2022 - Hospital Encounter Dominique Hinds GIB (g astrointestinal 06/02/2022 MD bleeding) (Primary Dx) Mahendra Victor MD Friedman, Harley P, MD Ratanamaneechat, Suphagaphan, MD 05/31/2022 Office Visit Vascular Surgery DavinaStephanie bellamyy 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; B, 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 Atrial fibrilla tion, unspecified type; SOB (shortness of breath) 05/28/2022 Telephone Vascular Surgery Dominique Bolivar RN 05/24/2022 Telephone Cardiology Kourtney Jimenez RN 05/21/2022 Hospital Encounter Cardiology Paroxysma l atrial fibrillation 05/20/2022 Surgery Cardiology Abundio Servin MD CATHETERIZATION 05/15/2022 Anesthesia Event Surgery Cari Hernandez MD Patel, Shreena K, HEAD OF CYTOGENETICS 05/15/2022 Surgery Surgery Fito Summers EMBOLECTOMY O [...] Collins MD [facility] GASTROENTEROLOGY DEPT [place], [place] [address] (Wo rk) 09/05/2022 Appointment Cardiology Trinity Reid MD [facility] CARDIOLOGY [place], [place] [address] (Wo rk) 09/05/2022 Office Visit Cardiology Trinity Reid MD [facility] [place], [place] [address] (Wo rk) Health Maintenance Due [...] Value Ref Test Analysis Performed At [facility] Range Method Time Signature UPPER GI [facility] ENDOSCOPY Endoscopy Procedure Date: 06/25/2022 10:33 AM ? Patient Name: Koko Bah ? Date of : 1940 ? Age: 81 ? Order #: [id number] ? Instrument Name: [id number]- [id number] ? Procedure: ? Upper GI endoscopy Indications: [...] Component Value Ref Test Analysis Performed At [facility] Method Time Signature COLONOSCOPY [facility] Endoscopy Procedure Date: 06/25/2022 10:33 AM ? Patient Name: Koko Bah ? Date of : 1940 ? Age: 81 ? Order #: [id number] ? Instrument Name: [id number]- [id number] ? Procedure: ? Colonoscopy Indications: ? Gastrointestinal [...] Procedure Code(s): ? --- Professional --- ? 09299, Colonoscopy, flexib le; with ? control of [...] of sigmoid ? colon CPT copyright 2020 [employer]. All rights reserved. The codes documented in this report are preliminary and upon agronomy manager review may be revised to meet [...] Value Ref Test Analysis Performed At [facility] Range Method Time Signature VB Text Department: Vascular Surgery Lab VASCUBASE Report Patient: [id number] (KOKO BAH) CPT: 53604 Referring Physician: FITO SUMMERS ?? 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 Diabetes mellitus: no Findings: Right ?Pressure [...] Summers MD VASCULAR ORDERABLES Performing Organization Address City/[facility]/ZIP Code Phon e Number VASCUBASE Specimen to Pathology (06/10/2022 1:20 PM EDT) Specimen Anatomical Collection Method Collection Time Receive d Time (Source) Location / / Volume Laterality AP Specimen 06/10/2022 1:20 PM 1:20 EDT PM EDT Narrative [facility] LABORAT ORY - 06/10/2022 1:20 PM EDT Specimen requisition ordered. ??Separate Pathology report to follow Loretta Cohen MD PATHOLOGY/CYTOLOGY ORDERABLE S Performing Organization Address [facility] [place] [address] [facility] [address] Surgical Pathology Report (06/10/2022 11:43 AM EDT) Component Value Ref Test Analysis Performed At [facility] Range Method Time Signature Surgical [id number] ? Location: [facility] Report The signing pathologist has (i) examined the relevant preparation(s) for the [facility] specimen(s) and (ii) rendered or confirmed the diagnosis(es) . HOSPITAL LABORATORY . ?Surgic al Pathology DIAGNOSIS Right lateral eyebrow, skin shave biopsy: - ??Basal cell carcinoma, no dular pattern, transected at the peripheral and deep specimen edges Electronically signed by: ?Delroy CARCAMO, PhD, Ian Verified: ??06/12/2022 14:33 ??Dermatopathologist Performed at: ??-[facility] [place] [facility] Dept. of Pathology, [place], [place] SPECIMEN(S) SUBMITTED A - right lateral [...] City/State/ZIP Code Phon e Number [place] [id number] (ABNORMAL) Hemogram (06/02/2022 8:20 AM EDT)Only the most recent of14 results within the time period is included. Analysis Performed At Patho logist Time Signature WBC 7.2 4.0 - 9.5 [facility] XIAO x10(3)/[facility] LABORATORY RBC 2.74 (L) 4.58 - [facility] X[facility] 5.54 [facility] x10(6)/[facility] LABORATORY Hemoglobin 8.7 (L) 13.7 - [place] 16.5 g/dL [facility] LABORATORY Hematocrit 25.7 (L) 40.5 - [facility] X[facility] 48.5 % [facility] LABORATORY MCV 93.8 (H) 82.9 - [place] 93.1 [facility] LABORATORY MCH 31.8 27.5 - Pop.itXIAO 32.1 pg [facility] LABORATORY MCHC 33.9 32.0 - [place] 35.7 g/dL [facility] LABORATORY Platelets 260 145 - 357 [place] Figgu x10(3)/[facility] LABORATORY RDWSD 51.0 (H) 36.0 - [place] 45.0 [facility] LABORATORY RDWCV 14.9 (H) 11.4 - [place] 13.8 % [facility] LABORATORY MPV 10.0 7.6 - 12.9 [facility] LABORATORY nRBC % Auto 0.0 % [facility] LABORATORY nRBC Abs Auto 0.000 0.000 - [facility] 0.000 [facility] x10(3)[facility] LABORATORY Specimen Anatomical Collection Method Collection Time Receive d Time (Source) Location / / Volume Laterality Blood 06/02/2022 8:20 AM 8:25 EDT AM EDT Resulting Agency Comment Spec In Lab Kurt Ames MD HEMATOLOGY ORDERABLES Performing Organization Address City/State/[place] [address] (ABNORMAL) Differential, Automated (06/02/2022 8:20 AM EDT)Only the most recent of14 resultswithin the time period is included. P athologist Signature Neutrophils % 61.3 % [facility] LABORATORY Neutr Abs (ANC) 4.44 1.70 - [facility] 6.10 [facility] x10(3)[facility] LABORATORY Lymphocytes % 25.2 % [facility] LABORATORY Lymphocytes Abs 1.8 0.9 - 3.2 [facility] x10(3)[facility] LABORATORY Monocytes % 10.0 % [facility] LABORATORY Monocyte Abs 0.7 0.3 - 0.9 [facility] x10(3)[facility] LABORATORY Eosinophils % 2.1 % [facility] LABORATORY Eosinophils Abs 0.2 0.0 - 0.4 [facility] x10(3)[facility] LABORATORY Basophils % 0.7 % [facility] LABORATORY Basophils Abs 0.0 0.0 - 0.1 [facility] x10(3)[facility] LABORATORY Immature Gran % 0.70 % [...] Abs 0.05 (H) 0.00 - 0.04 x10(3)/mcL [facility] LABORATORY Specimen Anatomical Collection Method Collection Time Receive d Time (Source) Location / / Volume Laterality Blood 06/02/2022 8:20 AM 2 8:25 EDT AM EDT Resulting Agency Comment Spec In Lab Kurt Ames MD HEMATOLOGY ORDERABLES Performing Organization Address City/State/ZIP Code Phon e Number [address] Heparin (unfractionated) Level (06/02/2022 6:30 AM EDT)Only the most recent of11 resultswithin the time period is included. athologist Signature Heparin UFH 0.39 IU/mL [facility] LABORATORY Comment: Heparin (anti-Xa) levels should [...] Organization Address City/State/ZIP Code Phon e Number [address] Magnesium (06/02/2022 12:30 AM EDT)Only the most recent of5 resultswithin the time period is included. athologist Signature Magnesium 0.83 0.69 - 1.07 [facility] mmol/L [facility] LABORATORY Specimen Anatomical Collection Method Collection Time Receive d Time (Source) Location / / Volume Laterality Blood 06/02/2022 12:30 06/02/2022 AM EDT 12:40 AM EDT Resulting Agency Comment Spec In Lab Mahendra Victor MD CHEMISTRY ORDERABLES Performing Organization Address City/State/[place] [address] (ABNORMAL) Basic Metabolic Panel (non-fasting) (06/02/2022 12:30 AM EDT)Only the most recent of6 resultswithin the time period is included. athologist Signature Glucose Lvl 151 65 - 199 [facility] mg/dL [facility] LABORATORY Comment: Diabetes: >=200 mg/dL plus symp toms BUN 12 10 - 20 mg/dL [facility] LABORATORY Creatinine 0.71 (L) 0.80 - 1.50 mg/dL [facility] LABORATORY Sodium 142 135 - 145 [...] Anion Gap 10 5 - 15 mmol/L [facility] LABORATORY Calcium 8.1 (L) 8.5 - [...] City/State/[place] [address] SCAN DOC: TELEMETRY STRIPS (06/01/2022 8:37 PM EDT)Only the most recent of8 resultswithin the time period is included. Narrative This result has an attachment that is no t available. Unknown MEDIA MGR SCAN EXT ORDR/RSLT (ABNORMAL) Urinalysis with reflex Culture (06/01/2022 4:00 AM EDT)Only the most recent of2 resultswithin the time period is included. [facility] gist Method Time Signature Glucose UA 500 Negative [facility] (Critical) mg/dL [facility] LABORATORY Comment: Urinalysis result NOT critical without a combination of Glucose greater than or equal to 500 mg/dL AND Ketones greate r than or equal to 80 mg/dL Protein UA Negative Negative mg/dL [facility] LABORATORY Bilirubin UA Negative Negative mg/dL [facility] LABORATORY Comment: Clinical correlation required for positi ve Urine Bilirubin results as false positive may occur with some drugs and d rug related products. If a false positive is suspected a serum total bili quarles should be considered if clinically indicated. Urobilinogen UA Normal Normal mg/dL [facility] LABORATORY pH UA 6.0 5.0 - 8.0 [facility] LABORATORY Blood UA Negative Negative mg/dL [facility] LABOR[facility]ORY Ketones UA Negative Negative mg/dL [facility] LAB[facility]ORY Nitrite UA Negative Negative [facility] LABORATORY Leukocytes UA Negative Negative mcL [facility] LABORATORY Appearance UA Clear Clear [facility] LABORATORY Spec Shirley UA >=1.030 (A) 1.005 - 1.030 [facility] LABORATORY Color UA Yellow Yellow [facility] LABORATORY Culture Reflexed No [facility] LABORATORY Specimen Anatomical Collection Method Collection Time Receive d Time (Source) Location / / Volume Laterality Clean Catch 06/01/2022 4:00 AM 4:26 Urine EDT AM EDT Resulting Agency Comment Spec In Lab Mahendra Victor MD URINE ORDERABLES Performing Organization Address City/State/[place] [address] Transfuse RBC (05/31/2022 7:36 PM EDT) Dominique Hinds MD NURSING TREATMENT ORDERABLES - BLOOD ADMIN UPPER GI ENDOSCOPY (05/31/2022 3:37 PM EDT) Component Value Ref Test Analysis Performed At [facility] Range Method Time Signature UPPER GI [facility] [employer] ENDOSCOPY Endoscopy Procedure Date: 05/31/2022 3:37 PM ? Patient Name: Koko Bah ? Date of : 1940 ? Age: 81 ? Order #: [id number] ? Instrument Name: [id number] ? Procedure: ? Upper GI endoscopy Indications: ? Melena, Suspected upper ? gastrointestinal bleeding Providers: ? Giovani Ponce, Torrey aGnnon , ? Vani Wei RN, Juhi Maxwell, [...] Endoscope w as ? introduced through the [facility], and ? advanced to the fourth [...] Procedure Code(s): ? --- Professional --- ? 37023, Esophagogastroduode noscopy, ? flexible, transoral; with control [...] stomach ? and duodenum CPT copyright 2020 [employer]. All rights reserved. The codes documented in this report are preliminary and upon agronomy manager review may be revised to meet [...] who have questions please contact the health reservoir caretaker that requested your imaging first. ? Narrative 05/31/2022 2:39 PM EDT EXAMINATION: CT ABDOMEN AND PELVIS [facility] CONTRAST (GI BLEED) CLINICAL HISTORY: Significant Hb drop. U nknown source. has had a [facility] with stent placed and revascularization of [...] enlarged lymph nodes. Vasculature: Patent common iliac, multi share program coordinator al iliac, and common femoral arteries bilaterally. [...] the original. EXAMINATION: CT ABDOMEN AND PELVIS [facility] (GI BLEED) CLINICAL HISTORY: Significant [...] enlarged lymph nodes. Vasculature: Patent common iliac, multi share program coordinator al iliac, and common femoral arteries bilaterally. [...] ho have questions please contact the health reservoir caretaker that requested your imaging first. Dominique Hinds MD IMG CT ORDERABLES Type and Screen Validity (05/31/2022 1:43 PM EDT)Only the most recent of2 resultswithin the time period is included. [facility] Method Time Signature T&S only valid [facility] LABORATORY Comment: This Type and Screen result is only valid at the [facility] Specimen Anatomical Collection Method Collection Time Receive d Time (Source) Location / / Volume Laterality Blood 05/31/2022 1:43 PM 2 1:57 EDT PM EDT Resulting Agency Comment Spec In Lab Dominique Hinds MD BLOOD BANK ORDERABLES Performing Organization Address City/State/[place] [address] ABORH Recheck Status (05/31/2022 1:43 PM EDT)Only the most recent of2 results within the time period is included. [facility] Method Time Signature ABORH Type Completed [facility] LABORATORY Specimen Anatomical Collection Method Collection Time Receive d Time (Source) Location / / Volume Laterality Blood 05/31/2022 1:43 PM 2 1:57 EDT PM EDT Resulting Agency Comment Spec In Lab Dominique Hinds MD BLOOD BANK ORDERABLES Performing Organization Address City/[facility]/[place] [address] ABO/Rh Typing (05/31/2022 1:43 [...] MD BLOOD BANK ORDERABLES Performing Organization Address [facility]/[place] [address] Antibody screen (05/31/2022 1:43 PM EDT)Only the most recent of2 resultswithin the time period is included. Patholo gist Method Time Signature Ab Screen Negative [facility] LABORATORY Expires at 06/03/2022 [facility] 3100 on: [facility] LABORATORY Specimen Anatomical Collection Method Collection Time Receive d Time (Source) Location / / Volume Laterality Blood 05/31/2022 1:43 PM 2 1:57 EDT PM EDT Resulting Agency Comment Spec In Lab Dominique Hinds MD BLOOD BANK ORDERABLES Performing Organization Address City/[facility]/ZIP Code Phon e Number [address] Prepare RBC (05/31/2022 1:35 PM EDT)Only the most recent of2 resultswithin the time period is included. P athologist Signature Dispensed? Yes [facility] LABORATORY Specimen Anatomical Collection Method Collection Time Receive d Time (Source) Location / / Volume Laterality Blood 05/31/2022 1:35 PM 2 1:30 EDT PM EDT Dominique Hinds MD BLOOD BANK ORDERABLES Performing Organization Address City/State/[place] [address] (ABNORMAL) BLOOD GAS 2 VENOUS (05/31/2022 11:24 AM EDT) P athologist Signature pH [place] 7.38 7.32 - [facility] 7.42 [facility] LABORATORY pCO2 [place] 40 (L) 41 - 51 [facility] LABORATORY pO2 [place] 18 (L) 25 - 40 [facility] LABORATORY HCO3 [place] 23.3 mmol/L [facility] LABORATORY BE Marco Antonio -1.8 mmol/L [facility] LABORATORY Hgb Blood Gas 7.0 (L) 13.7 - [facility] 16.5 g/dL [facility] LABORATORY O2HB [place] 24.3 % [facility] LABORATORY COHB Marco Antonio 1.4 % [facility] LABORATORY Comment: Nonsmokers: 0.5-1.5% COHB Smokers: Variable, but usually less than 10% Toxic: 20-30% COHB Lethal: Greater than 60% COHB METHB Marco [place] 1.7 (H) <=1.5 % [facility] LABORATORY Na Whole Blood 137 135 - 145 mmol/L [facility] [...] Lactate WB 1.4 0.5 - 2.2 mmol/L [facility] LABORATORY BGas Source Venous [facility] LABORATORY Specimen Anatomical Collection Method Collection Time Receive d Time (Source) Location / / Volume Laterality Blood 05/31/2022 11:24 05/31/2022 AM EDT 11:24 AM EDT Dominique Hinds MD CHEMISTRY ORDERABLES Performing Organization Address City/[facility]/ZIP Code Phon e Number [address] TSH Barry (05/31/2022 11:20 AM EDT) P athologist Signature TSH 1.67 0.27 - 4.20 [facility] mcIU/mL [facility] LABORATORY Comment: Reference Interval (mcIU/mL): Females: ??First Trimester: 0.23-3.88 ??Second Trimester: 0.22-3.90 ??Third Trimester: 0.44-4.66 Specimen Anatomical Collection Method Collection Time Receive d Time (Source) Location / / Volume Laterality Blood 05/31/2022 11:20 05/31/2022 AM EDT 11:28 AM EDT Resulting Agency Comment Spec In Lab Dominique Hinds MD CHEMISTRY ORDERABLES Performing Organization Address City/[facility]/ZIP Code Phon e Number [address] XR Chest PA & [...] who have questions please contact the health reservoir caretaker that requested your imaging first. ? Narrative [...] ho have questions please contact the health reservoir caretaker that requested your imaging first. Dominique Hinds MD IMG DX ORDERABLES Blue Tube HOLD (05/31/2022 10:50 AM EDT) athologist Signature Blue Hold Sample in [facility] lab. [facility] LABORATORY Specimen Anatomical Collection Method Collection Time Receive d Time (Source) Location / / Volume Laterality Blood Venous Draw / 05/31/2022 10:50 05/31/2022 Unknown AM EDT 11:05 AM EDT Brittany Ramirez MD HEMATOLOGY ORDERABLES Performing Organization Address City/State/[place] [address] Troponin (05/31/2022 10:50 AM EDT) athologist Signature Troponin-T <0.01 0.00 - 0.00 [facility] ng/mL [facility] LABORATORY Comment: The 99th percentile for Troponin T is le ss than 0.01 ng/mL, any detectable cTnT concentration using this assay should be considered elevated. According to the third universal definit ion of myocardial infarction the following criteria with a clinical prese ntation consistent with acute myocardial ischemia meets the diagnosis for a myocardial infarction (IA). Detection of a rise and/or fall of [...] additional sample may be indicated. Reference: Third [place] Definition of Myocardial Infarction. Journal of the [employer] 2012;60:1581-98 Specimen Anatomical Collection Method Collection Time Receive d Time (Source) Location / / Volume Laterality Blood 05/31/2022 10:50 05/31/2022 AM EDT 11:03 AM EDT Resulting Agency Comment Spec In Lab Dominique Hinds MD CHEMISTRY ORDERABLES Performing Organization Address City/State/ZIP Code Phon e Number [address] Phosphorus (05/31/2022 10:50 AM EDT)Only the most recent of2 resultswithin the time period is included. P athologist Signature Phosphorus 3.2 2.5 - 4.5 [place] mg/dL [facility] LABORATORY Specimen Anatomical Collection Method Collection Time Receive d Time (Source) Location / / Volume Laterality Blood 05/31/2022 10:50 05/31/2022 AM EDT 11:03 AM EDT Resulting Agency Comment Spec In Lab Dominique Hinds MD CHEMISTRY ORDERABLES Performing Organization Address City/[facility]/ZIP Code Phon e Number [address] (ABNORMAL) pro-Brain Natriuretic Peptide (05/31/2022 10:50 AM EDT) P athologist Signature ProBNP 1,077 (H) <=449 [place] [facility] pg/mL [facility] LABORATORY Specimen Anatomical Collection Method Collection Time Receive d Time (Source) Location / / Volume Laterality Blood 05/31/2022 10:50 05/31/2022 AM EDT 11:03 AM EDT Resulting Agency Comment Spec In Lab Dominique Hinds MD CHEMISTRY ORDERABLES Performing Organization Address City/[facility]/ZIP Code Phon e Number [address] Lipase (05/31/2022 10:50 AM EDT) P athologist Signature Lipase 41 0 - 60 [place] unit/L [facility] LABORATORY Specimen Anatomical Collection Method Collection Time Receive d Time (Source) Location / / Volume Laterality Blood Venous Draw / 05/31/2022 10:50 05/31/2022 Unknown AM EDT 11:11 AM EDT Resulting Agency Comment Spec In Lab Zain Champion MD CHEMISTRY ORDERABLES Performing Organization Address City/[facility]/[place] [address] (ABNORMAL) Hepatic Function Panel (05/31/2022 10:50 AM EDT) Analysis Performed At Patho logist Time Signature Total Protein 6.4 6.1 - 8.0 [place] g/dL [facility] LABORATORY Albumin 4.1 3.2 - 5.2 [place] g/dL [facility] LABORATORY AST 24 0 - 39 [facility] XIA[facility] unit/L [facility] LABORATORY ALT 44 0 - 55 [facility] XIA[facility] unit/L [facility] LABORATORY Alk Phos 63 40 - 130 [facility] LABORATORY Total <0.2 (L) 0.2 - 1.3 [place] [facility] Bilirubin mg/dL [facility] LABORATORY Bili, Direct 0.1 0.0 - 0.3 [facility] X[facility]O mg/dL [facility] LABORATORY Specimen Anatomical Collection Method Collection Time Receive d Time (Source) Location / / Volume Laterality Blood Venous Draw / 05/31/2022 10:50 05/31/2022 Unknown AM EDT 11:11 AM EDT Resulting Agency Comment Spec In Lab Zain Champion MD CHEMISTRY ORDERABLES Performing Organization Address City/[facility]/[place] [address] EKG 12 Lead (05/31/2022 10:11 AM EDT)Only the most recent of3 resultswithin the time period is included. Component Value Ref Range Test Analysis Performed Pathologis t Method Time At Signature Ventricular rate 106 BPM MUSE SYSTEM QRS Duration 122 ms MUSE SYSTEM Q-T Interval 368 ms MUSE SYSTEM QTC Calculated 488 ms MUSE SYSTEM (Bezet) Calculated R [place] -43 degrees MUSE SYSTEM Calculated T [place] 109 degrees MUSE SYSTEM INTERPRETATION Atrial fibrillation with rapid ventricular response MUSE SYSTEM Left axis deviation Minimal voltage criteria for LVH, may be normal variant ( Valmy product ) Cannot rule out Anterior infarct , age undetermined Abnormal ECG When compared with ECG of 20-MAY-2022 19:04, No significant change was found I personally reviewed the tracing and edited the fellows int erpretation Confirmed by fellow MD Mike, [place] ([id number]) on 022 8:36:21 PM Confirmed by MD MARKS JOHN ([id number]) on 06/03/2022 5:04:32 PM Specimen Anatomical Collection Method Collection Time Receive d Time (Source) Location / / Volume Laterality 05/31/2022 10:11 06/03/2022 5:04 AM EDT PM EDT Dominique Hinds MD ECG ORDERABLES Performing Organization Address City/State/ZIP Code Phon e Number MUSE SYSTEM [place] 48 Hrs-15 Days (05/21/2022 4:33 PM EDT) Anatomical Region Laterality Modality Other Specimen (Source) Anatomical Location Collection Method / Collectio n Time Received Time / Laterality Volume Narrative 05/31/2022 1:11 PM EDT Indication: Paroxysmal atrial fibrillation Analysis time [...] ORDERABLES CARDIAC CATHETERIZATION (05/20/2022 6:45 PM EDT) Anatomical Region Laterality Modality Other Specimen (Source) Anatomical Location Collection Method / Collectio n Time Received Time / Laterality Volume Narrative 05/20/2022 7:09 PM EDT ?[facility] ? Cardiac Cathete rization/Intervention Report ? Patient Name: Koko Bah. ? Procedure Date: 05/20/2022 ? A #: [id number] ? Primary Physician: Malathi, Abundio S ? Case #: [id number] ? File Name: [id number] ? Catheterization Order Number: [id number] ? [facility] ? Final Report [place], [place] ? Patient Name: ? Koko J. Klarissa uson ? ID#: ?[id number] ? : ?1940 ? Procedure Date: ? [...] procedure was Urgent. 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 Chest pain [...] ?3.5 guiding catheter and a 3.5 Fr [facility] [place] [address] ??20 Mhz. ??Imaging ?was successful. ??Image [...] A premounted 2. 75 x 30 mm [place] (AMPARO) was deployed ? with a maximum [...] require ?modification of this regimen. C onsult [facility] Interventional Cardiology for ?questions. [...] ? Abundio Servin MD CARDIAC CATH ORDERABLES POCT Glucose (05/20/2022 5:42 PM EDT) P athologist Signature POC Glucose 123 65 - 199 ILDA WHEATLEYXIAO mg/dL [facility] Comment: Supplemental ranges: <140 mg/dL before meals <180 mg/dL all other times of the day Specimen Anatomical Collection Method Collection Time Receive d Time (Source) Location / / Volume Laterality Blood 05/20/2022 5:42 PM 5:42 EDT PM EDT Fito Summers MD POINT OF CARE TEST ORDERABLE S Performing Organization Address City/State/[place] [address] (ABNORMAL) BMP w/fasting Glucose (05/20/2022 10:50 AM EDT) P athologist Signature Glucose 152 (H) 65 - 99 ILDA WHEATLEYXAIO Fasting mg/dL [facility] Comment: ?Fasting* Glucose Interpretive C riteria Normal ?65-99 mg/dL Impaired Fasting glucose ?100-125 mg/dL Consistent with Diabetes Mellitus ? >or= 126 mg/dL *Fasting is defined as no caloric intake for at least 8 hours In the absence of unequivocal hypergly cemia a plasma glucose value of >or= 126 mg/dL should be repeated on a subseq u day. Diagnosis and Classification of Diabetes Mellitus, Position Statement from the [place] [employer]. ??Diabete s Care, Volume 33, Supplement 1, Nov 2009 BUN 11 10 - 20 mg/dL [facility] Creatinine 0.63 (L) 0.80 - 1.50 mg/dL [facility] Sodium 137 135 - 145 mmol/L [facility] Potassium 3.6 3.5 - 5.0 mmol/L [facility] Comment: Please note: ??Patients with WBC >100,00 0 may have falsely elevated Potassium levels. ??For accurate Potassium quantif ication in these patients send serum separator tube (gold top) for subsequent determinations. ??Contact the Clinical Chemistry Laboratory if there are any qu estions. Chloride 103 98 - 107 mmol/L [facility] CO2 24 22 - 31 mmol/L [facility] Anion Gap 10 5 - 15 mmol/L [facility] Calcium 8.7 8.5 - 10.5 mg/dL [facility] Estimated GFR 97 >=60 mL/min/1.73 m?? [facility] [...] City/State/[place] [address] TSH (05/18/2022 8:00 PM EDT) P athologist Signature TSH 2.27 0.27 - 4.20 [facility] mcIU/mL [facility] Comment: Reference Interval (mcIU/mL): Females: ??First Trimester: 0.23-3.88 ??Second Trimester: 0.22-3.90 ??Third Trimester: 0.44-4.66 Specimen Anatomical Collection Method Collection Time Receive d Time (Source) Location / / Volume Laterality Blood 05/18/2022 8:00 PM 8:06 EDT PM EDT Resulting Agency Comment Spec In Lab Fito Summers MD CHEMISTRY ORDERABLES Performing Organization Address City/[facility]/ZIP Code Phon e Number [address] (ABNORMAL) Urinalysis Microscopic Exam (05/16/2022 11:15 PM EDT) athologist Signature RBC UA 8 (H) 0 - 3 /HPF [facility] WBC UA 2 0 - 3 /HPF [facility] Specimen Anatomical Collection Method Collection Time Receive d Time (Source) Location / / Volume Laterality Clean Catch 05/16/2022 11:15 05/16/2022 Urine PM EDT 11:30 PM EDT Resulting Agency Comment Spec In Lab Barbie Patiño MD URINE ORDERABLES Performing Organization Address City/[facility]/[place] [address] XR Chest One View [...] who have questions please contact the health reservoir caretaker that requested your imaging first. ? Narrative [...] ho have questions please contact the health reservoir caretaker that requested your imaging first. Fito Summers MD IMG DX ORDERABLES ECHOCARDIOGRAM COMPLETE W CONTRAST (05/16/2022 12:49 PM EDT) P athologist Signature EF 28 HEARTLAB SYSTEM Anatomical Region Laterality Modality Cardiac Other Specimen (Source) Anatomical Collection Method Collection Time Re ceived Time Location / / Volume Laterality 05/16/2022 11:22 AM EDT Narrative 05/16/2022 1:54 PM EDT ?[facility] ?[address] ? [place] [address] ?Voice: ?Fax: ? Echocardiogram Report Name: KOKO BAH ?Study Date: 05/16/2022 11:22 AM ? [facility] : 1940 ? Height: 67.5 in ? Account: [id number] Age: 81 yrs ? Weight: 176 lb Gender: Male ?BSA: 1.9 m2 Ordering Physician: FITO SUMMERS Referring Physician: MALI FLORIAN Performed By: Jolene Bernard RDCS Exam Location: [facility]. Interpretation Summary Left ventricle is [...] and LV systolic dysfunction are new. Procedure Complete-60649. Image enhancement Optiso n was used for [...] note might be different from the original. [facility] [address] [place] [address] Voice: Fax: Echocardiogram Report Name: KOKO BAH Study Date: 05/2022 11:22 AM Patient Location: [address] [place] [address] : 1940 Height: 67.5 in Account: [id number] Age: 81 yrs Weight: 176 lb Gender: Male BSA: 1.9 m2 Ordering Physician: FITO SUMMERS Referring Physician: MALI FLORIAN Performed By: Jolene Bernard RDCS Exam Location: [facility]. Interpretation Summary Left ventricle is [...] and LV systolic dysfunction are new. Procedure Complete-04028. Image enhancement Optiso n was used for [...] 15-16 diffuse Fito Summers MD ECHO ORDERABLES (ABNORMAL) BLOOD GAS 2 ARTERIAL (05/15/2022 3:33 PM EDT)Only the most recent of2 resultswithin the time period is included. Analysis Performed At Patho logist Time Signature pH Art 7.33 (L) 7.35 - [facility] 7.45 [facility]ORY pCO2 Art 41 35 - 45 [facility] LABORATORY pO2 Art 131 (H) 85 - 104 [facility] LABORATORY HCO3 Art 21.1 20.0 - [facility] 26.0 [facility] mmol/L [facility]OR[facility] BE Art -4.8 (L) -3.0 - 3.0 [facility] mmol/L [facility] Hgb Blood Gas 13.4 (L) 13.7 - [facility] 16.5 g/dL [facility] O2HB Art 96.9 94.0 - [facility] 97.0 % [facility] COHB Art 1.4 % [facility] Comment: Nonsmokers: 0.5-1.5% COHB Smokers: Variable, but usually less than 10% Toxic: 20-30% COHB Lethal: Greater than 60% COHB METHB Art 0.3 <=1.5 % [facility] LABORATORY Na Whole Blood 139 135 - 145 mmol/L [facility] K Whole Blood 3.8 3.5 - 5.0 mmol/L [facility] Comment: Please note: Patients with WBC >100,000 may have falsely elevated Potassium levels. Contact the Clinical Chemistry L aboratory if there are any questions. ICa Whole Blood 1.32 1.15 - 1.33 mmol/L [facility] Comment: Note: ??Total bilirubin higher than 20 m g/dL may lead to falsely low ionized calcium. CL Whole Blood 113 (H) 98 - 107 mmol/L [facility] Gluc Whole Bld 136 65 - 199 mg/dL [facility] Comment: Diabetes: >=200 mg/dL plus symp toms. Lactate WB 2.0 0.5 - 2.2 mmol/L [facility] Specimen Anatomical Collection Method Collection Time Receive d Time (Source) Location / / Volume Laterality Blood 05/15/2022 3:33 PM 2 3:[address] Jamel Torre MD CHEMISTRY ORDERABLES Performing Organization Address City/State/[place] [address] (ABNORMAL) APTT (05/15/2022 12:30 PM EDT) P athologist Signature PTT 76 (H) 25 - 37 sec [facility] Comment: The PTT is NOT [...] EDT Resulting Agency Comment Spec In Lab Jhonnyfili Claudiocy HEMATOLOGY ORDERABLES Performing Organization Address City/State/ZIP Code Phon e Number [place] [id number] (ABNORMAL) Prothrombin Time (05/15/2022 12:30 PM EDT) athologist Signature PT 12.9 (H) 9.4 - 12.5 [facility] LABORATORY INR 1.1 [facility] Comment: An INR <2.0 indicates [...] Morales DO HEMATOLOGY ORDERABLES Performing Organization Address City/[facility]/[place] [address] Gold Tube HOLD (05/15/2022 12:20 PM EDT) athologist Signature Gold Hold Sample in [facility] LABORATORY Specimen Anatomical Collection Method Collection Time Receive d Time (Source) Location / / Volume Laterality Blood No Charge / 05/15/2022 12:20 05/15/2022 Unknown PM EDT 12:20 PM EDT Lc TRIPP CHEMISTRY ORDERABLES Performing Organization Address City/[facility]/[place] [address] CK (05/15/2022 12:00 PM EDT) P athologist Signature CK, Total 87 0 - 200 [facility] unit/L [facility] Specimen Anatomical Collection Method Collection Time Receive d Time (Source) Location / / Volume Laterality Blood Venous Draw / 05/15/2022 12:00 05/15/2022 Unknown PM EDT 12:19 PM EDT Resulting Agency Comment Spec In Lab Fito Summers MD CHEMISTRY ORDERABLES Performing Organization Address City/[facility] [place] [address] Film Library- Storage Only CT Abdomen (05/15/2022 9:32 AM EDT) Specimen (Source) Anatomical Location Collection Method / Collectio n Time Received Time / Laterality Volume Narrative RAD - 05/15/2022 9:32 AM EDT This exam is auto-finalizing. It's purpo se is for storage only. Matt Branham MD [facility] FILM LIBRARY ORDERABLES Performing Organization Address [facility] Phon e Number [place], [place] Film Library- Storage Only DX Chest (05/15/2022 9:31 AM EDT) Specimen (Source) Anatomical Location Collection Method / Collectio n Time Received Time / Laterality Volume Narrative RAD - 05/15/2022 9:31 AM EDT This exam is auto-finalizing. It's purpo se is for storage only. Matt Branham MD [facility] FILM LIBRARY ORDERABLES Performing Organization Address [facility] Phon e Number [place], [place] from Last 3 Months Insurance Payer Benefit Plan / Subscriber ID Effective Phone Address T ype Group Dates MEDICARE MEDICARE PART A [id number] 2007-Pres [phone] [facility] [place] [phone] [facility] [id number] 2007-Pres [phone] [address] [facility] [employer] ent [address] [place] [address] Advance Directives Latest Code Status on File [...] capacity to make decision: Yes Care Teams Concrete Tester Relationship Specialty Start Date End Date Bobby Das MD PCP - General 10/02/[address] [place] [address] [place] [address]
--- OUTSIDE RECORDS SUMMARY | 2022-07-12 09:38 | XMS_ITS | Encounter Summary ---
:1940 Author Organization [employer] [place] [address] Care Team Providers Name Role Phone Bobby Das MD Primary Care Provider Encounter Details Date Type Department Care Team Description 06/25/2022 Hospital Encounter [place] [facility] [place]ovani [place]once, [facility] [place] [address] [facility] [phone] [place] [address] Social History Tobacco Use Types Packs/Day [...] the day after the procedure, use an jeja-slc-qsittra spray to numb your throat. Sucking on [...] occurs, please contact your Doctor. Please call [phone] before 8pm Mon-Fri with problems, questions or concerns. If you call after 8pm or on weekends, call the Hospital at [phone] and ask to speak to the Display And Banner Designer manager corporate responsibility and the key punch operator will contact that person for you. When should you call for help? Call [phone] anytime you think you may need emergency [...] any problems. Where can you learn more? [facility] View your After Visit Summary and more online at [email or web address] If you would like to provide feedback about your hospital experience, please call the Office of Patient and Family Relations at . If you have received this After Visit Summary in error, please immediately return it in person to the department, or notify the [facility] Privacy Office by calling toll free at between the hours of 8AM and 5PM to arrange for our retrieval of the documents at no cost to you. Content Version: 12.2 ?? [phone] [employer]. Care instructions adapted under license by [facility]. If you have questions about a medical condition or this instruction, always ask your healthcare professional. [employer] disclaims any warranty or liability for your [...] occurs, please contact your Doctor. Please call [phone] before 8pm Mon-Fri with problems, questions or concerns. If you call after 8pm or on weekends, call the Hospital at [phone] and ask to speak to the Display And Banner Designer manager corporate responsibility and the key punch operator will contact that person for you. When should you call for help? Call [phone] anytime you think you may need emergency [...] any problems. Where can you learn more? [facility] View your After Visit Summary and more online at [email or web address] If you would like to provide feedback about your hospital experience, please call the Office of Patient and Family Relations at . If you have received this After Visit Summary in error, please immediately return it in person to the department, or notify the [facility] Privacy Office by calling toll free at between the hours of 8AM and 5PM to arrange for our retrieval of the documents at no cost to you. Content Version: 12.2 ?? [id number] [employer]. Care instructions adapted under license by [employer]. If you have questions about a medical condition or this instruction, always ask your healthcare professional. [employer] disclaims any warranty or liability for [...] 21 (FLONASE) 50 mcg/actuation Nare route daily Ideal, Suspension as needed. fluorouraciL (EFUDEX) 5 % [...] ischemia I99.8 ??? Coronary artery disease involving [place] coronary artery of [place] heart without angina duqdlavgF65.10 ??? HFrEF (heart failure with reduced ejection [...] MD [facility] GASTROENTEROLOGY DEPT [place], [place] [address] (Wo rk) 09/05/2022 Appointment Cardiology Trinity Reid MD [facility] CARDIOLOGY [place], [place] [address] (Wo rk) 09/05/2022 Office Visit Cardiology Trinity Reid MD [facility] ER DR CARDIOLOGY [place] 0[address] (Wo rk) documented [...] Component Value Ref Test Analysis Performed At [facility] Range Method Time Signature UPPER GI [facility] ENDOSCOPY Endoscopy Procedure Date: 06/25/2022 10:33 AM ? Patient Name: Koko Zamora ? Date of : 1940 ? Age: 81 ? Order #: [id number] ? Instrument Name: EC-760P- [id number] ? Procedure: ? Upper GI endoscopy Indications: ? Recent gastrointestinal bleeding Providers: ? Giovani Ponce, Isi puente, ? Brissa Vee RN, Juvenal ? Confalone Referring MD: ?Marcelformerly [facility]: ? Propofol per Anesthesia Complications: ? No [...] Endoscope w as ? introduced through the [facility], and ? advanced to the second [...] Component Value Ref Test Analysis Performed At [facility] Method Time Signature COLONOSCOPY [facility] Endoscopy Procedure Date: 06/25/2022 10:33 AM ? Patient Name: Koko Zamora ? Date of : 1940 ? Age: 81 ? Order #: [id number] ? Instrument Name: EC-760P- [id number] ? Procedure: ? Colonoscopy Indications: ? Gastrointestinal [...] Procedure Code(s): ? --- Professional --- ? 69269, Colonoscopy, flexib le; with ? control of [...] of sigmoid ? colon CPT copyright 202 [employer]. All rights reserved. The codes documented in this report are preliminary and upon bag bundler review may be revised to meet current [...] Procedure) documented in this encounter Care Teams Clothes Model Relationship Specialty Start Date End Date Bobby Das MD PCP - General 10/02/[address] [place] [address] [place] [phone] documented as of this encounter
--- OUTSIDE RECORDS SUMMARY | 2022-07-12 09:38 | XMS_ITS | Encounter Summary ---
:1940 [place] [address] Care Team Providers Name Role Phone Bobby Das MD Primary Care Provider Encounter Details Date Type Department Care Team Description 06/13/2022 Office Visit [facility] [place] [facility] Fito Summers MD Limb ischemia [facility] [place] [address] VASCULAR SURGERY [phone] [place] [phone] (Wo rk) Social History Tobacco Use Types [...] s/p repair Overview Note: Surgery done at [facility] in 2000 ??? Hypertriglyceridemia Overview [...] ABIs. Fito Summers MD Vascular Surgery [facility] Emily Power CMA - 06/13/2022 8:00 AM EDT Handwashing performed, gloves on.As instructed by windy removed on LLE medial and lateral aspect, cleansed after staple remover, steri strips applied. Gloves off, handwashing performed. documented in this encounter Plan of Treatment Upcoming Encounters Date Type Specialty Care Team Description 08/08/2022 Office Visit Gastroenterology Negra Collins MD [facility] GASTROENTEROLOGY DEPT [place], [place] [address] (Wo rk) 09/05/2022 Appointment Cardiology Trinity Reid MD [facility] [address] [place], [place] [address] (Wo rk) 09/05/2022 Office Visit Cardiology Trinity Reid MD [facility] [address] [place], [place] [address] (Wo rk) documented as of this encounter Visit Diagnoses Diagnosis Limb ischemia Unspecified circulatory system disorder documented in this encounter Care Teams Spool Maker Relationship Specialty Start Date End Date Bobby Das MD PCP - General 10/02/[address] [place] [address] [place] [address] documented as of this encounter
--- OUTSIDE RECORDS SUMMARY | 2022-07-12 09:38 | XMS_ITS | Encounter Summary ---
:1940 Author Organization [facility] [place] [address] Care Team Providers Name Role Phone Bobby Das MD Primary Care Provider Encounter Details Date Type Department Care Team Description 06/25/2022 Surgery Gastroenterology at [facility] Giovani Ponce, EGD, UPPER GI [facility] Bobby gilliland [place] [address] [facility] [phone] [place], [place] [address] Social History Tobacco Use Types [...] the day after the procedure, use an mgtj-yrd-kbqesgk spray to numb your throat. Sucking on [...] occurs, please contact your Doctor. Please call [phone] before 8pm Mon-Fri with problems, questions or concerns. If you call after 8pm or on weekends, call the Hospital at [phone] and ask to speak to the Manager Client wireless consultant and the cement despatch operator will contact that person for you. When should you call for help? Call [phone] anytime you think you may need emergency [...] any problems. Where can you learn more? [facility] View your After Visit Summary and more online at [email or web address] If you would like to provide feedback about your hospital experience, please call the Office of Patient and Family Relations at . If you have received this After Visit Summary in error, please immediately return it in person to the department, or notify the [facility] Privacy Office by calling toll free at between the hours of 8AM and 5PM to arrange for our retrieval of the documents at no cost to you. Content Version: 12.2 ?? [phone] [employer]. Care instructions adapted under license by [facility]. If you have questions about a medical condition or this instruction, always ask your healthcare professional. [employer] disclaims any warranty or liability for [...] occurs, please contact your Doctor. Please call [phone] before 8pm Mon-Fri with problems, questions or concerns. If you call after 8pm or on weekends, call the Hospital at [phone] and ask to speak to the Manager Client wireless consultant and the cement despatch operator will contact that person for you. When should you call for help? Call [phone] anytime you think you may need emergency [...] any problems. Where can you learn more? [facility] View your After Visit Summary and more online at [email or web address] If you would like to provide feedback about your hospital experience, please call the Office of Patient and Family Relations at . If you have received this After Visit Summary in error, please immediately return it in person to the department, or notify the [facility] Privacy Office by calling toll free at between the hours of 8AM and 5PM to arrange for our retrieval of the documents at no cost to you. Content Version: 12.2 ?? 8002-9444 [employer]. Care instructions adapted under license by [facility]. If you have questions about a medical condition or this instruction, always ask your healthcare professional. [employer] disclaims any warranty or liability for your [...] 21 (FLONASE) 50 mcg/actuation Nare route daily [place], Suspension as needed. fluorouraciL (EFUDEX) 5 % [...] ischemia I99.8 ??? Coronary artery disease involving [place] coronary artery of [place] heart without angina gkuauppkG85.10 ??? HFrEF (heart failure with reduced ejection [...] MD [facility] GASTROENTEROLOGY DEPT [place], [place] [address] (Wo rk) 09/05/2022 Appointment Cardiology Trinity Reid MD [facility] CARDIOLOGY [place], [place] [address] (Wo rk) 09/05/2022 Office Visit Cardiology Trinity Reid MD [facility] CARDIOLOGY [place], [place] [address] (Wo rk) documented as of this [...] [facility] Range Method Time Signature UPPER GI [facility] ENDOSCOPY Endoscopy Procedure Date: 06/25/2022 10:33 AM ? Patient Name: Koko Zamora ? Date of : 1940 ? Age: 81 ? Order #: [id number] ? Instrument Name: [id number]- [id number] ? Procedure: ? Upper GI endoscopy Indications: ? Recent gastrointestinal bleeding Providers: ? Giovani Ponce, Isi puente, ? Brissa Vee RN, Darrell ? Confalone Referring MD: ?[facility] ? Propofol per Anesthesia Complications: [...] At [facility] Method Time Signature COLONOSCOPY [facility] Endoscopy Procedure Date: 06/25/2022 10:33 AM ? Patient Name: Koko Zamora ? Date of : 1940 ? Age: 81 ? Order #: [id number] ? Instrument Name: [id number]- [id number] ? Procedure: ? Colonoscopy Indications: ? Gastrointestinal [...] Procedure Code(s): ? --- Professional --- ? 55959, Colonoscopy, flexib le; with ? control of [...] of sigmoid ? colon CPT copyright 2021 [employer]. All rights reserved. The codes documented in this report are preliminary and upon apple solutions consultant review may be revised to meet current [...] Procedure) documented in this encounter Care Teams Security Agent Relationship Specialty Start Date End Date Bobby Das MD PCP - General 10/02/[address] [place] [address] [place] [id number] documented as of this encounter
--- OUTSIDE RECORDS SUMMARY | 2022-07-12 09:38 | XMS_ITS | Encounter Summary ---
:1940 Author Organization [facility] [place] [address] Care Team Providers Name Role Phone Bobby Das MD Primary Care Provider Reason for Referral Consultation (Routine) - Authorized Specialty Diagnoses / Procedures Referred By Contact Refer red To Contact Gastroenterology Diagnoses Adenomatous polyp of colon, unspecified part of colon Colonoscopy 06/25/22, discussed w/Dr. Ponce needs to be seen in clinic to discuss polyp / removal iso plavix & DOAC Isi Celaya MD [facility] Gastro 4l [facility] D [facility] [place] [address] [place] [address] Phone: Fax: Referral ID Status Reason Start Date Expiration Visits Visits Date Requested Authorized [id number] Authorized Consult, 06/25/2022 06/25/2023 1 1 Test & Treat Scheduling Instructions To be seen in ~2mo Encounter Details Date Type Department Care Team Description 06/25/2022 Orders Only [place] [facility] [place]i Celaya Adenomatous polyp of [facility] Bobby Mera [place], [place] [address] [facility] part of colon [phone] [facility] [place] [address] Social History Tobacco Use Types Packs/Day Years [...] [facility] DR GASTROENTEROLOGY DEPT [place] [phone] (Wo rk) 09/05/2022 Appointment Cardiology Trinity Reid MD [facility] CARDIOLOGY [place], [place] [address] (Wo rk) 09/05/2022 Office Visit Cardiology Trinity Reid MD [facility] CARDIOLOGY [place], [place] [address] (Wo rk) Scheduled Referrals Name Type Priority Associated Order Schedule Diagnoses Referral to Outpatient Routine Adenomatous polyp Ordered: Gastroenterology Referral of colon, 06/25/2022 unspecified part of colon documented as of this encounter Visit Diagnoses Diagnosis Adenomatous polyp of colon, unspecified part of colon documented in this encounter Care Teams Cold Header Relationship Specialty Start Date End Date Bobby Das MD PCP - General 10/02/[address] [place] [address] [place] [id number] documented as of this encounter
--- OUTSIDE RECORDS SUMMARY | 2022-07-12 09:39 | XMS_ITS | Encounter Summary ---
:1940 Author Organization [facility] [place] [address] Care Team Providers Name Role Phone Bobby Das MD Primary Care Provider Reason for Visit Auth/Cert Specialty Diagnoses / Procedures Referred By Contact Refer red To Contact Diagnoses GIB (gastrointestinal bleeding) Abe [facility] [place] [address] Referral ID Status Reason Start Date Expiration Date Visits Requ ested Visits Authorized [id number] 1 1 Encounter Details Date Type Department Care Team Description 05/31/2022 Anesthesia Event Gastroenterology at [facility] [place] Elmer Johnson MD [facility] [place] [address] [facility] Yogi Machado CRNA [facility] [place] [address] [place] [address] Anesthesia Record Procedure Summary Procedure Name [...] fossa), DION Carpenter Alysia O, RN right; ygkd-ucw-leswhn catheter system; 20 gauge; no longer indicated, [...] Procedure Summary Date: 05/31/22 Room / Location: [facility] ENDO 3 / [facility] ENDOSCOPY Anesthesia Start: 1603 Anesthesia Stop: 165 Procedures: EGD, UPPER GI ENDOSCOPY (N/A Trunk) EGD, W CONTROL OF BLEEDING, ANY METHOD Diagnosis: (melena) Surgeons: Giovani Ponce MD Responsible Provider: Elmer Johnson MD Anesthesia Type: MAC ASA Status: 3 All Anesthesia Providers: Anesthesiologist: Elmer Johnson MD COMPENSATION EXPERT: Yogi Dawkins CRNA Vitals Value Taken Time BP 95/62 05/31/22 1720 Temp Pulse Resp 18 05/31/22 1720 SpO2 99 % 05/31/22 1720 Pain Level 0 05/31/22 1720 Patient Location: PACU/[facility] Level of Consciousness: Awake and Alert [...] IR Biopsy Spine 07/20/2019 Bobby Marshall MD [facility] INTERVENTIONL RAD ??? IR VERTEBROPLASTY LUMBAR MULTIPLE LEVELS 07/20/2019 IR Vertebroplasty Lumbar Multiple Levels 07/20/2019 Bobby Marshall MD [facility] INTERVENTIONL RAD ??? IR VERTEBROPLASTY THORACIC SINGLE LEVEL 10/25/2020 IR Vertebroplasty Thoracic Single Level 10/25/2020 Matt Chisholm MD [facility] INTERVENTIONL RAD ??? PRO EMBLC/THRMBC FEMORAL POPLITEAL AORTO-ILIAC ARTERY Left 05/15/2022 EMBOLECTOMY OR THROMBECTOMY, FEMOROPOPLITEAL, AORTOILIAC ARTERY BY LEG INCISION (WRVU 19.48) performed by Fito Summers MD at [facility] MAIN OR ??? PRO UPPER GI ENDOSCOPY, CTRL BLEED 05/31/2022 EGD, W CONTROL OF BLEEDING, ANY METHOD performed by Giovani Ponce MD at [facility] ENDOSCOPY ??? PRO UPPER GI ENDOSCOPY, DIAGNOSTIC N/A 05/31/2022 EGD, UPPER GI ENDOSCOPY performed by Giovani Ponce MD at [facility] ENDOSCOPY Social History Tobacco Use ??? [...] risks discussed with patient. Plan discussed with COMPENSATION EXPERT. Anesthesia Screening documented in this encounter Plan of Treatment Upcoming Encounters Date Type Specialty Care Team Description 08/08/2022 Office Visit Gastroenterology Negra Collins MD [facility] GASTROENTEROLOGY DEPT [place], [place] [address] (Wo rk) 09/05/2022 Appointment Cardiology Trinity Reid MD [facility] CARDIOLOGY [place], [place] [address] (Wo rk) 09/05/2022 Office Visit Cardiology Trinity Reid MD [facility] CARDIOLOGY [place], [place] [address] (Wo rk) documented as of [...] mg documented in this encounter Care Teams Senior Loan Officer Relationship Specialty Start Date End Date Bobby Das MD PCP - General 10/02/[address] [place] [address] [place] [phone] documented as of this encounter
--- OUTSIDE RECORDS SUMMARY | 2022-07-12 09:39 | XMS_ITS | Encounter Summary ---
:1940 Author Organization [place] [address] Care Team Providers Name Role Phone Bobby Das MD Primary Care Provider Reason for Visit Reason Comments Dizziness Auth/Cert Specialty Diagnoses / Procedures Referred By Contact Refer red To Contact Diagnoses GIB (gastrointestinal bleeding) Abe [facility] [place] [address] Referral ID Status Reason Start Date Expiration Date Visits Requ ested Visits Authorized [id number] 1 1 Encounter Details Date Type Department Care Team Description 05/31/2022 Surgery Gastroenterology at [facility] Giovani Ponce, EGD, UPPER GI [facility] Bobby gilliland [place] [address] [facility] [phone] [address] [place] [address] Social History Tobacco Use Types Packs/Day [...] switching to a different bloodthinner with the display mechanic outpatient. Call your doctor or seek medical [...] switchingto a different blood thinner with your display mechanic as an outpatient Stopped Medications - Aspirin - Valsartan - Speak with your display mechanic about the timing of restarting this Follow-up Appointments Future Appointments Date Time Provider Department Center 06/10/2022 11:00 AM Loretta Cohen MD [facility] 06/13/2022 7:30 AM Edson [place]os [place] [facility] VAS LAB [facility] 06/13/2022 8:00 AM Fito Summers MD [facility] V SURG [facility] 06/13/2022 10:00 AM Alan Reid MD [facility] CARD [address] [place] [address] Your Inpatient Medical Team at [facility] Name(s) of your inpatient provider(s): Dr. John Ames For questions regarding issues relating to your hospitalization on the Hospital Medicine Service, please contact your inpatient physician through the [facility] Frickertron Checker [phone]. Issues after hours and on weekends will be handled by the Hospitalist staff on-call. Your Primary Care Provider Bobby Das MD [phone] Future Appointments and Orders Future Appointments and Orders Future Appointments Provider Department Dept Phone 06/10/2022 11:00 AM Loretta Cohen MD Dermatology at [facility] Arrive at: Saw Man [facility] [place] [phone] 06/13/2022 7:30 AM Edson [place]os [place] Vascular Lab at [facility] Arrive at: Saw Man Area 06/13/2022 8:00 AM Fito Summers MD Vascular Surgery at [facility] Arrive at: [facility] Area 06/13/2022 10:00 AM Alan Reid MD Cardiology at [facility] Arrive at: Saw Man Area 4A [phone] For questions regarding this document or issues relating to this hospitalization on the Medical Service, please contact your inpatient physician through the [facility] Frickertron Checker . Issues after hours and on weekends [...] switching to a different bloodthinner with the display mechanic outpatient. Call your doctor or seek medical [...] switchingto a different blood thinner with your display mechanic as an outpatient Stopped Medications - Aspirin - Valsartan - Speak with your display mechanic about the timing of restarting this Follow-up Appointments Future Appointments Date Time Provider Department Center 06/10/2022 11:00 AM Loretta Cohen MD [facility] 06/13/2022 7:30 AM Edson [place]os [place] [facility] VAS LAB ILDA POWELL 06/13/2022 8:00 AM Fito Summers MD [facility] V SURG [facility] 06/13/2022 10:00 AM Alan Reid MD [facility] CARD 4A [facility] Your Inpatient Medical Team at [facility] Name(s) of your inpatient provider(s): Dr. John Ames For questions regarding issues relating to your hospitalization on the Hospital Medicine Service, please contact your inpatient physician through the [facility] Frickertron Checker [phone]. Issues after hours and on weekends will be handled by the Hospitalist staff on-call. Your Primary Care Provider Bobby Das MD [phone] documented in this encounter Medications at Time [...] 04/12/20 21 (FLONASE) 50 mcg/actuation Nare route [place], Suspension daily as needed. fluorouraciL (EFUDEX) 5 [...] spent >30 minutes (Day of Discharge Code 24464) involved in the final examination of the [facility] [place] Team - Pager #[phone] Admit Date: 05/31/2022 Name: Koko Zamora : [...] cardiology to discuss antiplatelet (ISO bleed and usp), following. ?? #CAD s/p stenting recently #HFrEF [...] Kurt Ames MD Internal Medicine, PGY-1 Medicine [place] Team #[id number] Associated attestation - John Jolley MD - [...] included. [facility] Medicine (#[id number]) History and Physical Patient info: Name: Koko Zamora : 1940 PCP: Bobby Das MD PCP phone number: [phone] Date of Admission: 05/31/2022 ( Hospital Day [...] IR Biopsy Spine 07/20/2019 Bobby Marshall MD [facility] INTERVENTIONL RAD ??? IR VERTEBROPLASTY LUMBAR MULTIPLE LEVELS 07/20/2019 IR Vertebroplasty Lumbar Multiple Levels 07/20/2019 Bobby Marshall MD [facility] INTERVENTIONL RAD ??? IR VERTEBROPLASTY THORACIC SINGLE LEVEL 10/25/2020 IR Vertebroplasty Thoracic Single Level 10/25/2020 Matt Chisholm MD [facility] INTERVENTIONL RAD ??? PRO EMBLC/THRMBC FEMORAL POPLITEAL AORTO-ILIAC ARTERY Left 05/15/2022 EMBOLECTOMY OR THROMBECTOMY, FEMOROPOPLITEAL, AORTOILIAC ARTERY BY LEG INCISION (WRVU 19.48) performed by Fito Summers MD at [facility] MAIN OR No family history on [...] 11 ??? fluticasone propionate (FLONASE) 50 mcg/actuation [place], Suspension as needed. ??? fluorouraciL (EFUDEX) 5 [...] Gas) No results found for: PHART, PO2ART, LUB5VAI, MOE8DUP Microbiology: N/A Pertinent radiology/diagnostic studies: Recent prior [...] 05/31/2022 3:58 PM EDT [facility]. Upon arrival to [...] 10:50 AM EDT Pt brought to by tradeshow worker Brittany Ramirez MD - 05/31/2022 10:40 AM [...] who have questions please contact the health behavioral health care coordinator that requested your imaging first. [...] who have questions please contact the health behavioral health care coordinator that requested your imaging first. [...] recommendations from Brittany Tavares MD Resident 05/31/22 [id number] Associated attestation - Regina Hinds MD - [...] soft blood pressures, MD made aware. 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 Patient reported blurry/hazy [...] from the original note were not included. [facility] [place] [address] INPATIENT CARDIOLOGY CONSULT NOTE Date of Consultation: 06/01/2022 Admit Date: 05/31/2022 Place of Service: IS86/IS86-A Referring Attending: REGINA HINDS COLEMAN W FRIEDMAN, HARLEY P Responsible Polishing Machine Tender: Dr. Rizo Hospital Day 1 day Reason for Consult: Antiplatelet/anticoagulation s/p pci and afib, with GI bleed HPI: Koko Zamora is a 81 y.o. male with a cardiac history significant for remote mitral valve repair (2000), pre-DM, HLD, significant alcohol use, tobacco use, Afib on xarelto, ischemic systolic heartfailure (recent [facility] 05/20/2022 with 2V disease OM1 and distal RCA, had ostial LCX and LCx stent) who presented to [facility] on 05/31/2022 for GI [...] IR Biopsy Spine 07/20/2019 Bobby Marshall MD [facility] INTERVENTIONL RAD ??? IR VERTEBROPLASTY LUMBAR MULTIPLE LEVELS 07/20/2019 IR Vertebroplasty Lumbar Multiple Levels 07/20/2019 Bobby Marshall MD [facility] INTERVENTIONL RAD ??? IR VERTEBROPLASTY THORACIC SINGLE LEVEL 10/25/2020 IR Vertebroplasty Thoracic Single Level 10/25/2020 Matt Chisholm MD [facility] INTERVENTIONL RAD ??? PRO EMBLC/THRMBC FEMORAL POPLITEAL AORTO-ILIAC ARTERY Left 05/15/2022 EMBOLECTOMY OR THROMBECTOMY, FEMOROPOPLITEAL, AORTOILIAC ARTERY BY LEG INCISION (WRVU 19.48) performed by Fito Summers MD at [facility] MAIN OR ALLERGIES: Allergies Allergen Reactions [...] time ??? fluticasone propionate (FLONASE) 50 mcg/actuation [place], Suspension 1 spray by Each Nare route [...] from 05/31/2022 in Intermediate Special Care Unit [facility] ED to Hosp-Admission (Discharged) from 05/15/2022 in Intermediate Cardiac Care Unit [facility] Weight 77.1 kg (170 [...] 3.5 guiding catheter and a 3.5 Fr [facility] [place] [address] 20 Mhz. Imaging was successful. Image [...] A premounted 2.75 x 30 mm Rudy [place] (AMPARO) was deployed with a maximum inflation [...] require modification of this regimen. Consult [facility] Interventional Cardiology for questions. [...] Hb drop. Unknown source. has had a [facility] with stent placed and revascularization of left lower extremity within the past two weeks, recently on anticoagulation Unknown source of bleeding TECHNIQUE: Helical CT of the abdomen and pelvis was performed before and after the intravenous administration contrast utilizing GI bleed protocol. Administered 125.0 ml of OMNIPAQUE 350.00 mg/ml. Oral contrast was not administered. COMPARISON: 05/15/2022 from [facility] FINDINGS: GI Tract: Pre-contrast: No bowel [...] who have questions please contact the health behavioral health care coordinator that requested your imaging first. [...] who have questions please contact the health behavioral health care coordinator that requested your imaging first. [...] on xarelto, ischemic systolic heart failure (recent [facility] 05/20/2022 with 2V disease OM1 and distal RCA, had ostial LCX and LCx stent), recent admission for acutelimb ischemia LLE, where he had left common femoral transverse arteriotomy and primary repair, thromboembolectomy of the SFA, profunda and common femoral artery with 4 compartment fasciotomies, who presented to [facility] on 05/31/2022 for GI [...] for additional insight. Rossy Anaya MD [facility] Ironworker, PGY-5 Inpatient Cardiology Consults Pager #[phone] Please check Qgenda for on-call cardiology consults [...] A&Ox 4. On room air. VSS. LBM: TRACK MAINTAINER. Adequate urine output, urinal at bedside, flomax [...] surrogate would be surrogate decision maker per [place] surrogate decision making law. (Only good for 180 days) Any patient receiving care in [place] must abide by [place] law. The hierarchy [...] walker - rolling Home Address confirmed as: [address] [place] [phone] Social & Family Supports: All names listed below confirmed with patient as current and correct Extended Emergency Contact Information Primary Emergency Contact: Ursula Zamora Address: [address] [place] [phone] [facility] Relation: Spouse Current Care Provided by: [...] Type: *No Product type* / Secondary Insurance: [facility] Secondary Insurance? (Only Medicare A&B): Yes ; Prescription Coverage: Yes Preferred Pharmacy: [facility] [place], [place] - [address] [place] [address] [place] [address] [place] Status: Patient is a : No Primary Care Provider: Bobby Das MD [phone] Patient/Caregiver Goals of Treatment: Patient plans to [...] with transition of care planning. [facility] [place] [facility] Arts Worker [facility] Medicine/ Medical [...] Operative Note Patient Name: Koko Zamora : [id number] MR#: [id number] Case Date: 05/31/2022 Surgeon: Surgeon(s) and Role: [...] yrs ago was normal. He lives in [facility]. Currently light-headedness is improved. No [...] IR Biopsy Spine 07/20/2019 Bobby Marshall MD [facility] INTERVENTIONL RAD ??? IR VERTEBROPLASTY LUMBAR MULTIPLE LEVELS 07/20/2019 IR Vertebroplasty Lumbar Multiple Levels 07/20/2019 Bobby Marshall MD [facility] INTERVENTIONL RAD ??? IR VERTEBROPLASTY THORACIC SINGLE LEVEL 10/25/2020 IR Vertebroplasty Thoracic Single Level 10/25/2020 Matt Chisholm MD [facility] INTERVENTIONL RAD ??? PRO EMBLC/THRMBC FEMORAL POPLITEAL AORTO-ILIAC ARTERY Left 05/15/2022 EMBOLECTOMY OR THROMBECTOMY, FEMOROPOPLITEAL, AORTOILIAC ARTERY BY LEG INCISION (WRVU 19.48) performed by Fito Summers MD at [facility] MAIN OR SOCIAL HX: Social History [...] sounds, tympanic to percussion RECTAL: performed with csr retail present, no overt masses, fissures, external hemorrhoids, [...] who have questions please contact the health behavioral health care coordinator that requested your imaging first. [...] 08/08/2022 Office Visit Gastroenterology Negra Collins MD [facility] GASTROENTEROLOGY DEPT [place], [place] [address] (Wo rk) 09/05/2022 Appointment Cardiology Trinity Reid MD [facility] CARDIOLOGY [place], [place] [address] (Wo rk) 09/05/2022 Office Visit Cardiology Trinity Reid MD [facility] CARDIOLOGY [place], [place] [address] (Wo rk) documented as of [...] P athologist Signature Neutrophils % 61.3 % [facility] Neutr Abs (ANC) 4.44 1.70 - [facility] 6.10 [facility] x10(3)/[facility] LABORATORY Lymphocytes % 25.2 % [facility] Lymphocytes Abs 1.8 0.9 - 3.2 [facility] x10(3)/[facility] LABORATORY Monocytes % 10.0 % [facility] Monocyte Abs 0.7 0.3 - 0.9 [facility] x10(3)/[facility] LABORATORY Eosinophils % 2.1 % [facility] Eosinophils Abs 0.2 0.0 - 0.4 [facility] x10(3)/[facility] LABORATORY Basophils % 0.7 % [facility] Basophils Abs 0.0 0.0 - 0.1 [facility] x10(3)/[facility] LABORATORY Immature Gran % 0.70 % [facility] Comment: Immature granulocytes(IG's)percentage an d absolute count will include metamyelocytes, myelocytes, and promyelo cytes. Blood smears from CBCs yielding IG's will be scanned manually for concor dance. If this scan disagrees with the automated IG or if promyelocytes are not ed, a manual differential will be performed. Rain Gran Abs 0.05 (H) 0.00 - 0.04 x10(3)/[facility] LABORATORY Specimen Anatomical Collection Method Collection Time Receive d Time (Source) Location / / Volume Laterality Blood 06/02/2022 8:20 AM 8:25 EDT AM EDT Resulting Agency Comment Spec In Lab Kurt Ames MD HEMATOLOGY ORDERABLES Performing Organization Address City/State/ZIP [place] [address] (ABNORMAL) Hemogram (06/02/2022 8:20 AM EDT) Analysis Performed At Patho logist Time Signature WBC 7.2 4.0 - 9.5 [facility] x10(3)/[facility] LABORATORY RBC 2.74 (L) 4.58 - [facility] 5.54 [facility] x10(6)/[facility] LABORATORY Hemoglobin 8.7 (L) 13.7 - [facility] 16.5 g/dL [facility] Hematocrit 25.7 (L) 40.5 - [place] 48.5 % [facility] MCV 93.8 (H) 82.9 - [place] [place] 93.1 [facility] LABORATORY MCH 31.8 27.5 - [place] 32.1 pg [facility] MCHC 33.9 32.0 - [place] 35.7 g/dL [facility] Platelets 260 145 - 357 [facility] x10(3)/[facility] [place] [facility] LABORATORY RDWSD 51.0 (H) 36.0 - [place] 45.0 [facility] LABORATORY RDWCV 14.9 (H) 11.4 - [facility] X[facility] 13.8 % [facility] MPV 10.0 7.6 - 12.9 [facility] LABORATORY nRBC % Auto 0.0 % [facility] nRBC Abs Auto 0.000 0.000 - [facility] 0.000 [facility] x10(3)/[facility] LABORATORY Specimen Anatomical Collection Method Collection Time Receive d Time (Source) Location / / Volume Laterality Blood 06/02/2022 8:20 AM 8:25 EDT AM EDT Resulting Agency Comment Spec In Lab Kurt Ames MD HEMATOLOGY ORDERABLES Performing Organization Address City/State/[place] [address] Heparin (unfractionated) Level (06/02/2022 [...] Victor MD HEMATOLOGY ORDERABLES Performing Organization Address City/[facility]/ZIP Code Phon e Number [address] Heparin (unfractionated) Level (06/02/2022 [...] Victor MD HEMATOLOGY ORDERABLES Performing Organization Address City/[facility]/[place] [address] Magnesium (06/02/2022 12:30 AM EDT) P athologist Signature Magnesium 0.83 0.69 - 1.07 [facility] mmol/L [facility]OR[facility] Specimen Anatomical Collection Method Collection Time Receive d Time (Source) Location / / Volume Laterality Blood 06/02/2022 12:30 06/02/2022 AM EDT 12:40 AM EDT Resulting Agency Comment Spec In Lab Mahendra Victor MD CHEMISTRY ORDERABLES Performing Organization Address City/State/Z[place] [address] (ABNORMAL) Basic Metabolic Panel (non-fasting) (06/02/2022 12:30 AM EDT) P athologist Signature Glucose Lvl 151 65 - 199 [facility] mg/dL [facility] Comment: Diabetes: >=200 mg/dL plus symp toms BUN 12 10 - 20 mg/dL [facility] LABORATORY Creatinine 0.71 (L) 0.80 [...] [facility] LAB[facility] Calcium 8.1 (L) 8.5 - 10.5 mg/dL [facility] LABORATORY Estimated GFR 93 >=60 mL/min/1.73 m?? [facility] LABOR[facility]ORY [...] Organization Address City/State/[place] [address] (ABNORMAL) Differential, Automated (06/01/2022 7:29 PM EDT) athologist Signature Neutrophils % 68.8 % [facility] Neutr Abs (ANC) 5.34 1.70 - [facility] 6.10 [facility] x10(3)/[facility] LABORATORY Lymphocytes % 19.6 % [facility] Lymphocytes Abs 1.5 0.9 - 3.2 [facility] x10(3)/[facility] LABORATORY Monocytes % 8.1 % [facility] Monocyte Abs 0.6 0.3 - 0.9 [facility] x10(3)/[facility] LABORATORY Eosinophils % 1.8 % [facility] Eosinophils Abs 0.1 0.0 - 0.4 [facility] x10(3)/[facility] LABORATORY Basophils % 0.8 % [facility] Basophils Abs 0.1 0.0 - 0.1 [facility] x10(3)/[facility] LABORATORY Immature Gran % 0.90 % [facility] Comment: Immature granulocytes(IG's)percentage an d absolute count will include metamyelocytes, myelocytes, and promyelo cytes. Blood smears from CBCs yielding IG's will be scanned manually for concor dance. If this scan disagrees with the automated IG or if promyelocytes are not ed, a manual differential will be performed. Rain Gran Abs 0.07 (H) 0.00 - 0.04 x10(3)/[facility] LABORATORY Specimen Anatomical Collection Method Collection Time Receive d Time (Source) Location / / Volume Laterality Blood 06/01/2022 7:29 PM 2 7:29 EDT PM EDT Resulting Agency Comment Spec In Lab Kurt Ames MD HEMATOLOGY ORDERABLES Performing Organization Address City/State/[place] [address] (ABNORMAL) Hemogram (06/01/2022 7:29 PM EDT) Analysis Performed At Patho logist Time Signature WBC 7.8 4.0 - 9.5 [facility] LABORATORY RBC 2.65 (L) 4.58 - [facility] 5.54 [facility] x10(6)/[facility] LABORATORY Hemoglobin 8.3 (L) 13.7 - [facility] g/dL [facility] Hematocrit 24.8 (L) 40.5 - [facility] 48.5 % [facility] MCV 93.6 (H) 82.9 - [facility] 93.1 [facility] LABORATORY MCH 31.3 27.5 - [facility] 32.1 pg [facility] MCHC 33.5 32.0 - [facility] 35.7 g/dL [facility] Platelets 263 145 - 357 [facility] x10(3)/[facility] LABORATORY RDWSD 52.8 (H) 36.0 - [facility] 45.0 [facility] LABORATORY RDWCV 15.4 (H) 11.4 - [facility] 13.8 % [facility] MPV 10.4 7.6 - 12.9 [facility] nRBC % Auto 0.0 % [facility] nRBC Abs Auto 0.000 0.000 - [facility] 0.000 [facility] x10(3)/[facility] LABORATORY Specimen Anatomical Collection Method Collection Time Receive d Time (Source) Location / / Volume Laterality Blood 06/01/2022 7:29 PM 2 7:29 EDT PM EDT Resulting Agency Comment Spec In Lab Kurt Ames MD HEMATOLOGY ORDERABLES Performing Organization Address City/State/ZIP Code Phon e Number [address] Heparin (unfractionated) Level (06/01/2022 [...] Organization Address City/State/ZIP Code Phon e Number [address] (ABNORMAL) Heparin (unfractionated) Level (06/01/2022 11:32 AM EDT) Patholo gist Method Time Signature Heparin UFH 1.05 IU/mL [facility] (Critical) [facility] Comment: Critical Result called by [...] Organization Address City/State/Z[place] [address] (ABNORMAL) Differential, Automated (06/01/2022 5:56 AM EDT) [facility] Method Time Signature Neutrophils % 62.7 % [facility] Neutr Abs (ANC) 6.11 (H) 1.70 - [facility] 6.10 [facility] x10(3)/[facility] LABORATORY Lymphocytes % 23.5 % [facility] Lymphocytes Abs 2.3 0.9 - 3.2 [facility] x10(3)/[facility] LABORATORY Monocytes % 10.0 % [facility] Monocyte Abs 1.0 (H) 0.3 - 0.9 [facility] x10(3)/[facility] LABORATORY Eosinophils % 2.2 % [facility] Eosinophils Abs 0.2 0.0 - 0.4 [facility] x10(3)/[facility] LABORATORY Basophils % 0.9 % [facility] Basophils Abs 0.1 0.0 - 0.1 [facility] x10(3)/[facility] LABORATORY Immature Gran % 0.70 % [facility] Comment: Immature granulocytes(IG's)percentage an d absolute count will include metamyelocytes, myelocytes, and promyelo cytes. Blood smears from CBCs yielding IG's will be scanned manually for concor dance. If this scan disagrees with the automated IG or if promyelocytes are not ed, a manual differential will be performed. Rain Gran Abs 0.07 (H) 0.00 - 0.04 x10(3)/[facility] LABORATORY Specimen Anatomical Collection Method Collection Time Receive d Time (Source) Location / / Volume Laterality Blood 06/01/2022 5:56 AM 2 6:05 EDT AM EDT Resulting Agency Comment Spec In Lab Arpita Valle MD HEMATOLOGY ORDERABLES Performing Organization Address City/State/[place] [address] [facility] (ABNORMAL) Hemogram (06/01/2022 5:56 AM EDT) Analysis Performed At Patho logist Time Signature WBC 9.7 (H) 4.0 - 9.5 [facility] x10(3)/[facility] LABORATORY RBC 2.83 (L) 4.58 - [facility] 5.54 [facility] x10(6)/[facility] LABORATORY Hemoglobin 9.0 (L) 13.7 - [facility] 16.5 g/dL [facility] Hematocrit 26.7 (L) 40.5 - [facility] 48.5 % [facility] MCV 94.3 (H) 82.9 - [facility] 93.1 [facility] LABORATORY MCH 31.8 27.5 - [facility] 32.1 pg [facility] MCHC 33.7 32.0 - [facility] 35.7 g/dL [facility] Platelets 250 145 - 357 [facility] x10(3)/[facility] LABORATORY RDWSD 54.3 (H) 36.0 - [facility] XIAO 45.0 [facility] LABORATORY RDWCV 15.9 (H) 11.4 - [facility] 13.8 % [facility] MPV 10.5 7.6 - 12.9 [facility] LABORATORY nRBC % Auto 0.0 % [facility] LABORATORY nRBC Abs Auto 0.000 0.000 - [facility] XIAO 0.000 [facility] x10(3)/[facility] LABORATORY Specimen Anatomical Collection Method Collection Time Receive d Time (Source) Location / / Volume Laterality Blood 06/01/2022 5:56 AM 2 6:05 EDT AM EDT Resulting Agency Comment Spec In Lab Arpita Valle MD HEMATOLOGY ORDERABLES Performing Organization Address City/State/[place] [address] Heparin (unfractionated) Level (06/01/2022 [...] Victor MD HEMATOLOGY ORDERABLES Performing Organization Address City/[facility]/[place] [address] (ABNORMAL) Urinalysis with reflex Culture (06/01/2022 4:00 AM EDT) Patholo gist Method Time Signature Glucose UA 500 Negative [facility] (Critical) mg/dL [facility] Comment: Urinalysis result NOT critical without a combination of Glucose greater than or equal to 500 mg/dL AND Ketones greate r than or equal to 80 mg/dL Protein UA Negative Negative mg/dL [facility] LABORATORY Bilirubin UA Negative Negative mg/dL [place] [...] [facility]PITAL LABORATORY Blood UA Negative Negative mg/dL [facility] Ketones UA Negative Negative mg/dL [facility] LABOR[facility]ORY Nitrite UA Negative Negative [facility] LABORATORY Leukocytes UA Negative Negative [facility] LABORATORY Appearance UA Clear Clear [facility] LABORATORY Spec [place] UA >=1.030 (A) 1.005 - 1.030 [facility] LABORATORY Color UA Yellow Yellow [facility] LABORATORY Culture Reflexed No [facility] LABORATORY Specimen Anatomical Collection Method Collection Time Receive d Time (Source) Location / / Volume Laterality Clean Catch 06/01/2022 4:00 AM 2 4:26 Urine EDT AM EDT Resulting Agency Comment Spec In Lab Mahendra Victor MD URINE ORDERABLES Performing Organization Address City/[facility]/ZIP Code Phon e Number [address] Magnesium (06/01/2022 1:00 AM EDT) athologist Signature Magnesium 0.93 0.69 - 1.07 [facility] mmol/L [facility] LABORATORY Specimen Anatomical Collection Method Collection Time Receive d Time (Source) Location / / Volume Laterality Blood 06/01/2022 1:00 AM 2 1:37 EDT AM EDT Resulting Agency Comment Spec In Lab Mahendra Victor MD CHEMISTRY ORDERABLES Performing Organization Address City/[facility] Phon e Number [address] (ABNORMAL) Basic Metabolic Panel (non-fasting) (06/01/2022 1:00 AM EDT) athologist Signature Glucose Lvl 148 65 - 199 [facility] mg/dL [facility]ORY Comment: Diabetes: >=200 mg/dL plus symp toms BUN 23 (H) 10 - 20 mg/dL [facility] LABORATORY Creatinine 0.78 (L) 0.80 - 1.50 mg/dL [facility] LABORATORY Sodium 141 135 - 145 mmol/L [facility] LABORATORY Potassium 4.0 3.5 - 5.0 mmol/L [facility] mmol/L [facility] Anion Gap 9 5 - 15 mmol/L [facility] LABORATORY Calcium 8.6 8.5 - 10.5 mg/dL [facility] LABORATORY Estimated GFR 91 >=60 mL/min/1.73 m?? [facility] LABORATORY [...] Organization Address City/State/Z[place] [address] (ABNORMAL) Differential, Automated (06/01/2022 12:00 AM EDT) P athologist Signature Neutrophils % 64.6 % [facility] LABOR[facility]ORY Neutr Abs (ANC) 5.60 1.70 - [facility] 6.10 [facility] x10(3)/[facility] LABORATORY Lymphocytes % 22.4 % [facility] LABOR[facility]ORY Lymphocytes Abs 1.9 0.9 - 3.2 [facility] x10(3)/[facility] LABORATORY Monocytes % 9.5 % [facility] Monocyte Abs 0.8 0.3 - 0.9 [facility] x10(3)/[facility] LABORATORY Eosinophils % 2.1 % [facility] LAB[facility]ORY Eosinophils Abs 0.2 0.0 - 0.4 [facility] x10(3)/[facility] LABORATORY Basophils % 0.6 % [facility] Basophils Abs 0.0 0.0 - 0.1 [facility] x10(3)/[facility] LABORATORY Immature Gran % 0.80 % [facility]ORY Comment: Immature granulocytes(IG's)percentage an d absolute count will include metamyelocytes, myelocytes, and promyelo cytes. Blood smears from CBCs yielding IG's will be scanned manually for concor dance. If this scan disagrees with the automated IG or if promyelocytes are not ed, a manual differential will be performed. Rain Gran Abs 0.07 (H) 0.00 - 0.04 x10(3)/[facility] LABORATORY Specimen (Source) Anatomical Collection Method Collection Time Re ceived Time Location / / Volume Laterality Blood 06/01/2022 06/01/2022 12:1 0 AM EDT Resulting Agency Comment Spec In Lab Arpita Valle MD HEMATOLOGY ORDERABLES Performing Organization Address City/State/Z[place] [address] (ABNORMAL) Hemogram (06/01/2022 12:00 AM EDT) Analysis Performed At Patho logist Time Signature WBC 8.7 4.0 - 9.5 [facility] x10(3)/[facility] LABORATORY RBC 2.77 (L) 4.58 - [facility] 5.54 [facility] x10(6)/[facility] LABORATORY Hemoglobin 8.6 (L) 13.7 - [facility] 16.5 g/dL [facility] Hematocrit 25.7 (L) 40.5 - [facility] 48.5 % [facility] MCV 92.8 82.9 - [facility] 93.1 [facility] LABORATORY MCH 31.0 27.5 - [facility] 32.1 pg [facility] MCHC 33.5 32.0 - [facility] 35.7 g/dL [facility] Platelets 260 145 - 357 [facility] x10(3)/[facility] LABORATORY RDWSD 51.9 (H) 36.0 - [facility] 45.0 [facility] LABORATORY RDWCV 15.5 (H) 11.4 - [facility] 13.8 % [facility] LABORAT[facility] MPV 10.4 7.6 - 12.9 [facility] LABORATORY nRBC % Auto 0.0 % [facility] LABORATORY nRBC Abs Auto 0.000 0.000 - [facility] 0.000 [facility] x10(3)/[facility] LABORATORY Specimen (Source) Anatomical Collection Method Collection Time Re ceived Time Location / / Volume Laterality Blood 06/01/2022 06/01/2022 12:1 0 AM EDT Resulting Agency Comment Spec In Lab Arpita Valle MD HEMATOLOGY ORDERABLES Performing Organization Address City/State/Z[place] [address] (ABNORMAL) Differential, Automated (05/31/2022 9:17 PM EDT) P athologist Signature Neutrophils % 59.6 % [facility] LABOR[facility] Neutr Abs (ANC) 3.98 1.70 - [facility] 6.10 [facility] x10(3)/[facility] LABORATORY Lymphocytes % 27.5 % [facility] LABOR[facility]ORY Lymphocytes Abs 1.8 0.9 - 3.2 [facility] x10(3)/[facility] LABORATORY Monocytes % 9.1 % [facility] Monocyte Abs 0.6 0.3 - 0.9 [facility] x10(3)/[facility] LABORATORY Eosinophils % 2.4 % [facility] Eosinophils Abs 0.2 0.0 - 0.4 [facility] x10(3)/[facility] LABORATORY Basophils % 0.7 % [facility] Basophils Abs 0.0 0.0 - 0.1 [facility] x10(3)/[facility] LABORATORY Immature Gran % 0.70 % [facility] LABOR[facility]ORY Comment: Immature granulocytes(IG's)percentage an d absolute count will include metamyelocytes, myelocytes, and promyelo cytes. Blood smears from CBCs yielding IG's will be scanned manually for concor dance. If this scan disagrees with the automated IG or if promyelocytes are not ed, a manual differential will be performed. Rain Gran Abs 0.05 (H) 0.00 - 0.04 x10(3)/[facility] LABORATORY Specimen Anatomical Collection Method Collection Time Receive d Time (Source) Location / / Volume Laterality Blood 05/31/2022 9:17 PM 9:25 EDT PM EDT Resulting Agency Comment Spec In Lab Arpita Valle MD HEMATOLOGY ORDERABLES Performing Organization Address City/State/Z[place] [address] (ABNORMAL) Hemogram (05/31/2022 9:17 PM EDT) Analysis Performed At Patho logist Time Signature WBC 6.7 4.0 - 9.5 [facility] x10(3)/[facility] LABORATORY RBC 2.74 (L) 4.58 - [facility] 5.54 [facility] x10(6)/[facility] LABORATORY Hemoglobin 8.5 (L) 13.7 - [facility] 16.5 g/dL [facility] Hematocrit 25.7 (L) 40.5 - [facility] 48.5 % [facility] MCV 93.8 (H) 82.9 - [facility] 93.1 fL [facility] MCH 31.0 27.5 - [facility] 32.1 pg [facility] MCHC 33.1 32.0 - [facility] 35.7 g/dL [facility] LABORATORY Platelets 233 145 - 357 [facility] x10(3)/[facility] LABORATORY RDWSD 51.9 (H) 36.0 - [facility] 45.0 [facility] RDWCV 15.3 (H) 11.4 - [facility] 13.8 % [facility] MPV 10.3 7.6 - 12.9 [facility] LABORATORY nRBC % Auto 0.0 % [facility] nRBC Abs Auto 0.000 0.000 - [facility] 0.000 [facility] x10(3)/[facility] LABORATORY Specimen Anatomical Collection Method Collection Time Receive d Time (Source) Location / / Volume Laterality Blood 05/31/2022 9:17 PM 9:25 EDT PM EDT Resulting Agency Comment Spec In Lab Arpita Valle MD HEMATOLOGY ORDERABLES Performing Organization Address City/State/Z[place] [address] Transfuse RBC (05/31/2022 7:36 PM EDT) Regina Hinds MD NURSING TREATMENT ORDERABLES - BLOOD ADMIN Transfuse RBC (05/31/2022 7:36 PM EDT) Regina Hinds MD NURSING TREATMENT ORDERABLES - BLOOD ADMIN UPPER GI ENDOSCOPY (05/31/2022 3:37 PM EDT) Component Value Ref Test Analysis Performed At [facility] Range Method Time Signature UPPER GI [facility] PROVATION ENDOSCOPY Endoscopy Procedure Date: 05/31/2022 3:37 PM ? Patient Name: Koko Zamora ? Date of : 1940 ? Age: 81 ? Order #: [id number] ? Instrument Name: [id number] ? Procedure: ? Upper GI endoscopy Indications: [...] Procedure Code(s): ? --- Professional --- ? 79827, Esophagogastroduode noscopy, ? flexible, transoral; with control [...] stomach ? and duodenum CPT copyright 2021 [employer]. All rights reserved. The codes documented in this report are preliminary and upon auto body man review may be revised to meet current [...] who have questions please contact the health behavioral health care coordinator that requested your imaging first. ? Narrative 05/31/2022 2:39 PM EDT EXAMINATION: CT ABDOMEN AND PELVIS WWO CONTRAST (GI BLEED) CLINICAL HISTORY: Significant Hb drop. U nknown source. has had a [facility] with stent placed and revascularization of [...] enlarged lymph nodes. Vasculature: Patent common iliac, recruiting assistant al iliac, and common femoral arteries bilaterally. [...] enlarged lymph nodes. Vasculature: Patent common iliac, recruiting assistant al iliac, and common femoral arteries bilaterally. [...] ho have questions please contact the health behavioral health care coordinator that requested your imaging first. Regina Hinds MD G CT ORDERABLES Type and Screen Validity (05/31/2022 1:43 PM EDT) [facility] gist Method Time Signature T&S only valid [facility] at [facility] LABORATORY Comment: This Type and Screen result is only valid at the [facility] Specimen Anatomical Collection Method Collection Time Receive d Time (Source) Location / / Volume Laterality Blood 05/31/2022 1:43 PM 2 1:57 EDT PM EDT Resulting Agency Comment Spec In Lab Regina Hinds MD BLOOD BANK ORDERABLES Performing Organization Address City/State/Z[place] [address] ABORH Recheck Status (05/31/2022 1:43 PM EDT) [facility] Method Time Signature ABORH Type Completed [facility] LABORATORY Specimen Anatomical Collection Method Collection Time Receive d Time (Source) Location / / Volume Laterality Blood 05/31/2022 1:43 PM 2 1:57 EDT PM EDT Resulting Agency Comment Spec In Lab Regina Hinds MD BLOOD BANK ORDERABLES Performing Organization Address City/[facility]/ZIP [place] [address] Antibody screen (05/31/2022 1:43 PM EDT) [facility] Signature Ab Screen Negative [facility] LABORATORY Expires at 06/03/2022 [facility] [id number] on: [facility] LABOR[facility]ORY Specimen Anatomical Collection Method Collection Time Receive d Time (Source) Location / / Volume Laterality Blood 05/31/2022 1:43 PM 2 1:57 EDT PM EDT Resulting Agency Comment Spec In Lab Regina Hinds MD BLOOD BANK ORDERABLES Performing Organization Address City/[facility]/ZIP [place] [address] ABO/Rh Typing (05/31/2022 1:43 PM EDT) P athologist Signature ABORh Type O Pos [facility] LABORATORY Specimen Anatomical Collection Method Collection Time Receive d Time (Source) Location / / Volume Laterality Blood 05/31/2022 1:43 PM 2 1:57 EDT PM EDT Resulting Agency Comment Spec In Lab Regina Hinds MD BLOOD BANK ORDERABLES Performing Organization Address City/[facility]/ZIP [place] [address] Prepare RBC (05/31/2022 1:35 PM EDT) P athologist Signature Dispensed? Yes [facility] LABORATORY Specimen Anatomical Collection Method Collection Time Receive d Time (Source) Location / / Volume Laterality Blood 05/31/2022 1:35 PM 2 1:30 EDT PM EDT Regina Hinds MD BLOOD BANK ORDERABLES Performing Organization Address City/[facility] [place] [address] Prepare RBC (05/31/2022 1:25 PM EDT) P athologist Signature Dispensed? Yes [facility] LABORATORY Specimen Anatomical Collection Method Collection Time Receive d Time (Source) Location / / Volume Laterality Blood 05/31/2022 1:25 PM 2 1:23 EDT PM EDT Regina Hinds MD BLOOD BANK ORDERABLES Performing Organization Address [facility] Phon e Number [address] (ABNORMAL) Differential, Automated (05/31/2022 12:44 PM EDT) P athologist Signature Neutrophils % 62.0 % [facility]OR[facility] Neutr Abs (ANC) 4.71 1.70 - [facility] 6.10 [facility] x10(3)/[facility] LABORATORY Lymphocytes % 24.1 % [facility] Lymphocytes Abs 1.8 0.9 - 3.2 [facility] x10(3)/[facility] LABORATORY Monocytes % 10.8 % [facility] Monocyte Abs 0.8 0.3 - 0.9 [facility] x10(3)/[facility] LABORATORY Eosinophils % 1.6 % [facility] Eosinophils Abs 0.1 0.0 - 0.4 [facility] x10(3)/[facility] LABORATORY Basophils % 0.7 % [facility] Basophils Abs 0.0 0.0 - 0.1 [facility] x10(3)/[facility] LABORATORY Immature Gran % 0.80 % [facility] Comment: Immature granulocytes(IG's)percentage an d absolute count will include metamyelocytes, myelocytes, and promyelo cytes. Blood smears from CBCs yielding IG's will be scanned manually for concor dance. If this scan disagrees with the automated IG or if promyelocytes are not ed, a manual differential will be performed. Rain Gran Abs 0.06 (H) 0.00 - 0.04 x10(3)/[facility] LABORATORY Specimen Anatomical Collection Method Collection Time Receive d Time (Source) Location / / Volume Laterality Blood 05/31/2022 12:44 05/31/2022 PM EDT 12:57 PM EDT Resulting Agency Comment Spec In Lab Brittany Ramirez MD HEMATOLOGY ORDERABLES Performing Organization Address City/State/ZIP [place] [address] (ABNORMAL) Hemogram (05/31/2022 12:44 PM EDT) Analysis Performed At Patho logist Time Signature WBC 7.6 4.0 - 9.5 [facility] x10(3)/[facility] LABORATORY RBC 2.11 (L) 4.58 - [facility] 5.54 [facility] x10(6)/[facility] LABORATORY Hemoglobin 6.9 (L) 13.7 - [facility] 16.5 g/dL [facility] Hematocrit 20.8 (L) 40.5 - [facility] 48.5 % [facility] MCV 98.6 (H) 82.9 - [facility] 93.1 [facility] LABORATORY MCH 32.7 (H) 27.5 - [facility] 32.1 pg [facility] MCHC 33.2 32.0 - [facility] 35.7 g/dL [facility] Platelets 255 145 - 357 [facility] x10(3)/[facility] LABORATORY RDWSD 47.7 (H) 36.0 - [facility] 45.0 [facility] LABORATORY RDWCV 13.4 11.4 - [facility] 13.8 % [facility] MPV 10.7 7.6 - 12.9 [facility] LABORATORY nRBC % Auto 0.0 % [facility] nRBC Abs Auto 0.000 0.000 - [facility] 0.000 [facility] x10(3)/[facility] LABORATORY Specimen Anatomical Collection Method Collection Time Receive d Time (Source) Location / / Volume Laterality Blood 05/31/2022 12:44 05/31/2022 PM EDT 12:57 PM EDT Resulting Agency Comment Spec In Lab Brittany Ramirez MD HEMATOLOGY ORDERABLES Performing Organization Address City/State/ZIP [place] [address] (ABNORMAL) BLOOD GAS 2 VENOUS (05/31/2022 11:24 AM EDT) P athologist Signature pH [place] 7.38 7.32 - [facility] 7.42 [facility] pCO2 [place] 40 (L) 41 - 51 [facility] LABORATORY pO2 [place] 18 (L) 25 - 40 [facility] LABORATORY HCO3 [place] 23.3 mmol/L [facility] BE Marco Antonio -1.8 mmol/L [facility] Hgb Blood Gas 7.0 (L) 13.7 - [facility] 16.5 g/dL [facility] O2HB [place] 24.3 % [facility] COHB [place] 1.4 % [facility] Comment: [...] Whole Blood 1.19 1.15 - 1.33 mmol/L [facility] Comment: Note: ??Total bilirubin higher than 20 m g/dL may lead to falsely low ionized calcium. CL Whole Blood 107 98 - 107 mmol/L [facility] LABORATORY Gluc Whole Bld 204 (H) 65 - 199 mg/dL [facility] LABORATORY Comment: Diabetes: >=200 mg/dL plus symp toms Lactate WB 1.4 0.5 - 2.2 mmol/L [facility] LABORATORY BGas Source Venous [facility] LABORATORY Specimen Anatomical Collection Method Collection Time Receive d Time (Source) Location / / Volume Laterality Blood 05/31/2022 11:24 05/31/2022 AM EDT 11:24 AM EDT Regina Hinds MD CHEMISTRY ORDERABLES Performing Organization Address City/[facility]/ZIP Code Phon e Number [address] TSH Calhoun (05/31/2022 11:20 AM EDT) P athologist Signature TSH 1.67 0.27 - 4.20 [facility] mcIU/mL [facility] Comment: Reference Interval (mcIU/mL): Females: ??First Trimester: 0.23-3.88 ??Second Trimester: 0.22-3.90 ??Third Trimester: 0.44-4.66 Specimen Anatomical Collection Method Collection Time Receive d Time (Source) Location / / Volume Laterality Blood 05/31/2022 11:20 05/31/2022 AM EDT 11:28 AM EDT Resulting Agency Comment Spec In Lab Regina Hinds MD CHEMISTRY ORDERABLES Performing Organization Address City/[facility]/ZIP Code Phon e Number [address] XR Chest PA & [...] who have questions please contact the health behavioral health care coordinator that requested your imaging first. [...] ho have questions please contact the health behavioral health care coordinator that requested your imaging first. Regina Hinds MD IMG DX ORDERABLES Lipase (05/31/2022 10:50 AM EDT) athologist Signature Lipase 41 0 - 60 [facility] unit/L [facility] Specimen Anatomical Collection Method Collection Time Receive d Time (Source) Location / / Volume Laterality Blood Venous Draw / 05/31/2022 10:50 05/31/2022 Unknown AM EDT 11:11 AM EDT Resulting Agency Comment Spec In Lab Zain Champion MD CHEMISTRY ORDERABLES Performing Organization Address City/State/ZIP Code Phon e Number [place] [id number]OSP[address] LAB[address]ORY Drive (ABNORMAL) Hepatic Function Panel (05/31/2022 10:50 AM EDT) Analysis Performed At Patho logist Time Signature Total Protein 6.4 6.1 - 8.0 [facility] g/dL [facility] Albumin 4.1 3.2 - 5.2 [facility] g/dL [facility] AST 24 0 - 39 [facility] unit/L [facility] ALT 44 0 - 55 [facility] unit/L [facility] Alk Phos 63 40 - 130 [facility] unit/L [facility] Total <0.2 (L) 0.2 - 1.3 [facility] Bilirubin mg/dL [facility] Bili, Direct 0.1 0.0 - 0.3 [facility] mg/dL [facility] Specimen Anatomical Collection Method Collection Time Receive d Time (Source) Location / / Volume Laterality Blood Venous Draw / 05/31/2022 10:50 05/31/2022 Unknown AM EDT 11:11 AM EDT Resulting Agency Comment Spec In Lab Zain Champion MD CHEMISTRY ORDERABLES Performing Organization Address City/[facility]/ZIP Code Phon e Number [address] Blue Tube HOLD (05/31/2022 10:50 AM EDT) athologist Signature Blue Hold Sample in [facility] LABORATORY Specimen Anatomical Collection Method Collection Time Receive d Time (Source) Location / / Volume Laterality Blood Venous Draw / 05/31/2022 10:50 05/31/2022 Unknown AM EDT 11:05 AM EDT Brittany Ramirez MD HEMATOLOGY ORDERABLES Performing Organization Address City/[facility]/ZIP Code Phon e Number [address] (ABNORMAL) Differential, Automated (05/31/2022 10:50 AM EDT) athologist Signature Neutrophils % 66.9 % [facility] LABORATORY Neutr Abs (ANC) 5.58 1.70 - [facility] 6.10 [facility] x10(3)/[facility] LABORATORY Lymphocytes % 22.2 % [facility] Lymphocytes Abs 1.8 0.9 - 3.2 [facility] x10(3)/[facility] LABORATORY Monocytes % 7.8 % [facility] Monocyte Abs 0.6 0.3 - 0.9 [facility] x10(3)/[facility] LABORATORY Eosinophils % 1.2 % [facility] Eosinophils Abs 0.1 0.0 - 0.4 [facility] x10(3)/[facility] LABORATORY Basophils % 0.7 % [facility] Basophils Abs 0.1 0.0 - 0.1 [facility] x10(3)/[facility] LABORATORY Immature Gran % 1.20 % [facility] Comment: Immature granulocytes(IG's)percentage an d absolute count will include metamyelocytes, myelocytes, and promyelo cytes. Blood smears from CBCs yielding IG's will be scanned manually for tracy armstrong. If this scan disagrees with the automated IG or if promyelocytes are not ed, a manual differential will be performed. Rain Gran Abs 0.10 (H) 0.00 - 0.04 x10(3)/[facility] LABORATORY Specimen Anatomical Collection Method Collection Time Receive d Time (Source) Location / / Volume Laterality Blood 05/31/2022 10:50 05/31/2022 AM EDT 11:03 AM EDT Resulting Agency Comment Spec In Lab Brittany Ramirez MD HEMATOLOGY ORDERABLES Performing Organization Address City/State/ZIP [place] [address] (ABNORMAL) Hemogram (05/31/2022 10:50 AM EDT) Analysis Performed At Patho logist Time Signature WBC 8.3 4.0 - 9.5 [facility] x10(3)/[facility] LABORATORY RBC 2.26 (L) 4.58 - [facility].54 [facility] x10(6)/[facility] LABORATORY Hemoglobin 7.4 (L) 13.7 - [facility] 16.5 g/dL [facility] LABORATORY Hematocrit 22.3 (L) 40.5 - [facility] 48.[facility] % [facility] MCV 98.7 (H) 82.9 - [facility] 93.1 [facility] LABORATORY MCH 32.7 (H) 27.5 - [facility] 32.1 pg [facility] LABORATORY MCHC 33.2 32.0 - [facility] 35.7 g/dL [facility] LABOR[facility]ORY Platelets 283 145 - 357 [facility] x10(3)/[facility] LABORATORY RDWSD 47.0 (H) 36.0 - [facility] 45.0 [facility] LABORATORY RDWCV 13.4 11.4 - [facility] 13.8 % [facility] LABORATORY MPV 10.8 7.6 - 12.9 [facility] LABORATORY nRBC % Auto 0.0 % [facility] LABORATORY nRBC Abs Auto 0.000 0.000 - [facility] 0.000 [facility] x10(3)/[facility] LABORATORY Specimen Anatomical Collection Method Collection Time Receive d Time (Source) Location / / Volume Laterality Blood 05/31/2022 10:50 05/31/2022 AM EDT 11:03 AM EDT Resulting Agency Comment Spec In Lab Brittany Ramirez MD HEMATOLOGY ORDERABLES Performing Organization Address City/State/ZIP Code Phon e Number [address] Phosphorus (05/31/2022 10:50 AM EDT) P athologist Signature Phosphorus 3.2 2.5 - 4.5 [facility] mg/dL [facility] LABORATORY Specimen Anatomical Collection Method Collection Time Receive d Time (Source) Location / / Volume Laterality Blood 05/31/2022 10:50 05/31/2022 AM EDT 11:03 AM EDT Resulting Agency Comment Spec In Lab Regina Hinds MD CHEMISTRY ORDERABLES Performing Organization Address City/State/ZIP Code Phon e Number [address] Magnesium (05/31/2022 10:50 AM EDT) P athologist Signature Magnesium 0.93 0.69 - 1.07 [facility] mmol/L [facility] LABORATORY Specimen Anatomical Collection Method Collection Time Receive d Time (Source) Location / / Volume Laterality Blood 05/31/2022 10:50 05/31/2022 AM EDT 11:03 AM EDT Resulting Agency Comment Spec In Lab Regina Hinds MD CHEMISTRY ORDERABLES Performing Organization Address City/State/[place] [address] (ABNORMAL) pro-Brain Natriuretic Peptide (05/31/2022 10:50 AM EDT) P athologist Signature ProBNP 1,077 (H) <=449 [facility] [place] pg/mL [facility] LABORATORY Specimen Anatomical Collection Method Collection Time Receive d Time (Source) Location / / Volume Laterality Blood 05/31/2022 10:50 05/31/2022 AM EDT 11:03 AM EDT Resulting Agency Comment Spec In Lab Regina Hinds MD CHEMISTRY ORDERABLES Performing Organization Address City/[facility]/[place] [address] Troponin (05/31/2022 10:50 AM EDT) athologist Signature Troponin-T <0.01 0.00 - 0.00 [facility] ng/mL [facility] Comment: The 99th percentile for [...] additional sample may be indicated. Reference: Third [place] Definition of Myocardial Infarction. Journal of the [place] [employer] 2012;60:1581-98 Specimen Anatomical Collection Method Collection Time Receive d Time (Source) Location / / Volume Laterality Blood 05/31/2022 10:50 05/31/2022 AM EDT 11:03 AM EDT Resulting Agency Comment Spec In Lab Regina Hinds MD CHEMISTRY ORDERABLES Performing Organization Address City/[facility]/[place] [address] (ABNORMAL) Basic Metabolic Panel (non-fasting) (05/31/2022 10:50 AM EDT) athologist Signature Glucose Lvl 223 (H) 65 - 199 [facility] mg/dL [facility] Comment: Diabetes: >=200 mg/dL plus symp toms BUN 39 (H) 10 - 20 mg/dL [facility] LABORATORY Creatinine 0.91 0.80 - 1.50 mg/dL [facility] LABORATORY Sodium 140 135 - 145 mmol/L [facility] LABORATORY Potassium 4.1 3.5 - 5.0 mmol/L [facility] LAB[facility] Calcium 9.1 8.5 - 10.5 mg/dL [facility] LABORATORY Estimated GFR 86 >=60 mL/min/1.73 m?? [facility] LABORATORY [...] Organization Address City/State/ZIP [place] [address] EKG 12 Lead (05/31/2022 10:11 AM EDT) Component Value Ref Range Test Analysis Performed Pathologis t Method Time At Signature Ventricular rate 106 BPM MUSE SYSTEM QRS Duration 122 ms MUSE SYSTEM Q-T Interval 368 ms MUSE SYSTEM QTC Calculated 488 ms MUSE SYSTEM (Bezet) Calculated R Jackson -43 degrees MUSE SYSTEM Calculated T Jackson 109 degrees MUSE SYSTEM INTERPRETATION Atrial fibrillation [...] erpretation Confirmed by fellow MD Mike, [place] ([id number]) on 022 8:36:21 PM Confirmed by MD [...] PROTOCOL, Starting on Fri05/31/22 at 2013, Until D Lo 06/02/22 at 1702, Per Pro tocol, START [...] CONTINUOUS, Starting on Fri05/31/22 at 2015, Until D Lo 06/02/22 at 1702, Begin infusion at 950 [...] (Lidoderm) 5% patch 2 patch(Linked Group 1) 5626 (Patch Applied - Provider: Raven Barbour RN [...] RN)[id number] (New Bag - Provider: Raven Barbour RN)[id number] (Stopped - Provider: Maranda Ribeiro RN) 0-5,000 [...] - Less than 0.1 international unit/mL: Ad manager quality improvement 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
Routine documented in this encounter Care Teams Shipping Clerk Packing Relationship Specialty Start Date End Date Bobby Das MD PCP - General 10/02/[address] [place] [address] [place] [phone] documented as of this encounter
--- OUTSIDE RECORDS SUMMARY | 2022-07-12 09:39 | XMS_ITS | Encounter Summary ---
:1940 [place] [address] Care Team Providers Name Role Phone Bobby Das MD Primary Care Provider Reason for Visit Reason Comments Dizziness Auth/Cert Specialty Diagnoses / Procedures Referred By Contact Refer red To Contact Diagnoses GIB (gastrointestinal bleeding) Abe [facility] [place] [address] Referral ID Status Reason Start Date Expiration Date Visits Requ ested Visits Authorized [id number] 1 1 Encounter Details Date Type Department Care Team Description 05/31/2022 - Hospital Encounter Intermediate Special Dixon Hinds MD [facility] [place] [address] GIB 06/02/2022 Care Unit [place] [address] (gastrointestinal [facility] [place] [address] bleeding) ([facility] [place] [address] Dx) [place] [address] Social History Tobacco Use Types Packs/Day Years [...] Valle MD - 06/02/2022 12:48 PM EDT [facility] Medicine - Discharge Summary Patient Name: [...] switching to a different bloodthinner with the cognos outpatient. Call your doctor or seek medical [...] switchingto a different blood thinner with your cognos as an outpatient Stopped Medications - Aspirin - Valsartan - Speak with your cognos about the timing of restarting this Follow-up Appointments Future Appointments Date Time Provider Department Center 06/10/2022 11:00 AM Loretta Cohen MD [facility] 06/13/2022 7:30 AM Edson [place]os [place] [facility] VAS LAB [facility] 06/13/2022 8:00 AM Fito Summers MD [facility] V SURG [facility] 06/13/2022 10:00 AM Alan Reid MD [address] Your Inpatient Medical Team at [facility] Name(s) of your inpatient provider(s): Dr. John Ames For questions regarding issues relating to your hospitalization on the Hospital Medicine Service, please contact your inpatient physician through the [facility] Journeyman Press Operator [phone]. Issues after hours and on weekends will be handled by the Hospitalist staff on-call. Your Primary Care Provider Bobby Das MD [phone] Future Appointments and Orders Future Appointments and Orders Future Appointments Provider Department Dept Phone 06/10/2022 11:00 AM Loretta Cohen MD Dermatology [facility] Arrive at: Car Designer [address] [place] [phone] 06/13/2022 7:30 AM Edson [place]os [place] Vascular Lab at [facility] Arrive at: Car Designer Area [phone] 06/13/2022 8:00 AM Fito Summers MD Vascular Surgery at [facility] Arrive at: Car Designer Area 06/13/2022 10:00 AM Alan Reid MD Cardiology at [facility] Arrive at: Car Designer Area [phone] For questions regarding this document or issues relating to this hospitalization on the Medical Service, please contact your inpatient physician through the [facility] Journeyman Press Operator . Issues after hours and on [...] switching to a different bloodthinner with the cognos outpatient. Call your doctor or seek medical [...] switchingto a different blood thinner with your cognos as an outpatient Stopped Medications - Aspirin - Valsartan - Speak with your cognos about the timing of restarting this Follow-up Appointments Future Appointments Date Time Provider Department Center 06/10/2022 11:00 AM Loretta Cohen MD [facility] 06/13/2022 7:30 AM Edson [place]os [place] [facility] VAS LAB ILDA POWELL 06/13/2022 8:00 AM Fito Summers MD [facility] V SURG [facility] 06/13/2022 10:00 AM Alan Reid MD [facility] CARD [address]A [facility] Your Inpatient Medical Team at [facility] Name(s) of your inpatient provider(s): Dr. John Ames For questions regarding issues relating to your hospitalization on the Hospital Medicine Service, please contact your inpatient physician through the [facility] Journeyman Press Operator [phone]. Issues after hours and on weekends will be handled by the Hospitalist staff on-call. Your Primary Care Provider Bobby Das MD [phone] documented in this encounter Medications at Time [...] 04/12/20 21 (FLONASE) 50 mcg/actuation Nare route [place], Suspension daily as needed. fluorouraciL (EFUDEX) 5 [...] spent >30 minutes (Day of Discharge Code 94524) involved in the final examination of the [...] were not included. Hospital Medicine Progress Note [place] Team - Pager #[phone] Admit Date: 05/31/2022 Name: Koko Zamora : [...] Kurt Ames MD Internal Medicine, PGY-1 Medicine [place] Team #[id number] Associated attestation - John Jolley MD - 06/01/2022 5:02 PM EDT [facility] Medicine -- Attending Progress Note Please [...] of two midnights or is on the [facility] inpatient only procedure list (status C) due to: GI Bleeding documented in this encounter H&P Notes Mahendra Victor MD - 05/31/2022 4:33 PM EDT Images from the original note were not included. [facility] Medicine (#[id number]) History and Physical Patient info: Name: Koko Zamora : 1940 PCP: Bobby Das MD PCP phone number: [phone] Date of Admission: 05/31/2022 ( Hospital Day [...] IR Biopsy Spine 07/20/2019 Bobby Marshall MD [facility] INTERVENTIONL RAD ??? IR VERTEBROPLASTY LUMBAR MULTIPLE LEVELS 07/20/2019 IR Vertebroplasty Lumbar Multiple Levels 07/20/2019 Bobby Marshall MD [facility] INTERVENTIONL RAD ??? IR VERTEBROPLASTY THORACIC SINGLE LEVEL 10/25/2020 IR Vertebroplasty Thoracic Single Level 10/25/2020 Matt Chisholm MD [facility] INTERVENTIONL RAD ??? PRO EMBLC/THRMBC FEMORAL POPLITEAL AORTO-ILIAC ARTERY Left 05/15/2022 EMBOLECTOMY OR THROMBECTOMY, FEMOROPOPLITEAL, AORTOILIAC ARTERY BY LEG INCISION (WRVU 19.48) performed by Fito Summers MD at [facility] MAIN OR No family history on [...] 11 ??? fluticasone propionate (FLONASE) 50 mcg/actuation [place], Suspension as needed. ??? fluorouraciL (EFUDEX) 5 [...] Gas) No results found for: PHART, PO2ART, IQE1FIN, KEB1JGM Microbiology: N/A Pertinent radiology/diagnostic studies: Recent prior [...] Status: Full Arpita Valle MD, PGY-3 05/31/2022 [facility] Medicine # [id number] Attending Staff Admission [...] 05/31/2022 3:58 PM EDT Norepinephrine pulled from [facility] for soft BPs. Upon arrival to [...] AM EDT Pt brought to XR by skin grader Brittany Ramirez MD - 05/31/2022 10:40 [...] have questions please contact the health care administrative tech that requested your imaging first. Chest PA [...] have questions please contact the health care administrative tech that requested your imaging first. Course as [...] recommendations from Brittany Tavares MD Resident 05/31/22 [id number] Associated attestation - Regina Hinds MD - [...] soft blood pressures, MD made aware. LBM DIRECTOR NICU. 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 Patient reported blurry/hazy [...] Heparin gtt - plan to bridge to [facility] Discharge planning Increase strength & mobility [...] from the original note were not included. [facility] NAOMY Pena [phone] INPATIENT CARDIOLOGY CONSULT NOTE Date of Consultation: 06/01/2022 Admit Date: 05/31/2022 Place of Service: IS86/IS86-A Referring Attending: REGINA HINDS COLEMAN W FRIEDMAN, HARLEY P Responsible Digital Archivist: Dr. Rizo Hospital Day 1 day Reason [...] LCX and LCx stent) who presented to [facility] on 05/31/2022 for GI bleed. Patient presented [...] IR Biopsy Spine 07/20/2019 Bobby Marshall MD [facility] INTERVENTIONL RAD ??? IR VERTEBROPLASTY LUMBAR MULTIPLE LEVELS 07/20/2019 IR Vertebroplasty Lumbar Multiple Levels 07/20/2019 Bobby Marshall MD [facility] INTERVENTIONL RAD ??? IR VERTEBROPLASTY THORACIC SINGLE LEVEL 10/25/2020 IR Vertebroplasty Thoracic Single Level 10/25/2020 Matt Chisholm MD [facility] INTERVENTIONL RAD ??? PRO EMBLC/THRMBC FEMORAL POPLITEAL AORTO-ILIAC ARTERY Left 05/15/2022 EMBOLECTOMY OR THROMBECTOMY, FEMOROPOPLITEAL, AORTOILIAC ARTERY BY LEG INCISION (WRVU 19.48) performed by Fito Summers MD at [facility] MAIN OR ALLERGIES: Allergies Allergen Reactions [...] time ??? fluticasone propionate (FLONASE) 50 mcg/actuation [place], Suspension 1 spray by Each Nare route [...] Neurology: Without focal deficit ECG: Echocardiogram: 05/16/2022 [facility] 05/20/2022 Coronary Angiography: Dominance: Right Left Main [...] 3.5 guiding catheter and a 3.5 Fr [facility] [place] [address] 20 Mhz. Imaging was successful. Image [...] A premounted 2.75 x 30 mm Rudy Osborne (AMPARO) was deployed with a maximum inflation [...] may require modification of this regimen. Consult [facility] Interventional Cardiology for questions. The 1 year [...] Hb drop. Unknown source. has had a [facility] with stent placed and revascularization of left [...] have questions please contact the health care administrative tech that requested your imaging first. [employer] 48 [...] have questions please contact the health care administrative tech that requested your imaging first. Recent Labs [...] on xarelto, ischemic systolic heart failure (recent [facility] 05/20/2022 with 2V disease OM1 and distal RCA, had ostial LCX and LCx stent), recent admission for acutelimb ischemia LLE, where he had left common femoral transverse arteriotomy and primary repair, thromboembolectomy of the SFA, profunda and common femoral artery with 4 compartment fasciotomies, who presented to [facility] on 05/31/2022 for GI bleed. Cardiology consulted [...] attestation for additional insight. Rossy Anaya MD [facility] Records Tech, PGY-5 Inpatient Cardiology Consults Pager #[phone] Please check Qgenda for on-call cardiology consults [...] A&Ox 4. On room air. VSS. LBM: DIRECTOR NICU. Adequate urine output, urinal at bedside, flomax [...] 180 days) Any patient receiving care in [place] must abide by [place] law. The hierarchy [...] (i) The agent with financial power of senior trial attorney or a conservator appointed in [...] walker - rolling Home Address confirmed as: [address] [place] [phone] Social & Family Supports: All names listed below confirmed with patient as current and correct Extended Emergency Contact Information Primary Emergency Contact: Ursula Zamora Address: [address] [place] [phone] [facility] Relation: Spouse Current Care Provided by: self [...] Type: *No Product type* / Secondary Insurance: [facility] Secondary Insurance? (Only Medicare A&B): Yes ; Prescription Coverage: Yes Preferred Pharmacy: [facility] - [facility], [place] - [address] [facility] [address] [facility] [address] Status: Patient is a : No Primary Care Provider: Bobby Das MD [phone] Patient/Caregiver Goals of Treatment: Patient plans to [...] with transition of care planning. ASH Garcia Web Ui Developer [facility] Medicine/ Medical Specialties Pager- [phone] Plan [...] Operative Note Patient Name: Koko Rioson : [id number] MR#: [id number] Case Date: 05/31/2022 Surgeon: Surgeon(s) and Role: [...] stomach. He has had colonoscopies before in [place] - notes first ever he had 6 [...] IR Biopsy Spine 07/20/2019 Bobby Marshall MD [facility] INTERVENTIONL RAD ??? IR VERTEBROPLASTY LUMBAR MULTIPLE LEVELS 07/20/2019 IR Vertebroplasty Lumbar Multiple Levels 07/20/2019 Bobby Marshall MD [facility] INTERVENTIONL RAD ??? IR VERTEBROPLASTY THORACIC SINGLE LEVEL 10/25/2020 IR Vertebroplasty Thoracic Single Level 10/25/2020 Matt Chisholm MD [facility] INTERVENTIONL RAD ??? PRO EMBLC/THRMBC FEMORAL POPLITEAL AORTO-ILIAC ARTERY Left 05/15/2022 EMBOLECTOMY OR THROMBECTOMY, FEMOROPOPLITEAL, AORTOILIAC ARTERY BY LEG INCISION (WRVU 19.48) performed by Fito Summers MD at [facility] MAIN OR SOCIAL HX: Social History [...] sounds, tympanic to percussion RECTAL: performed with set making machine operator present, no overt masses, fissures, external hemorrhoids, [...] have questions please contact the health care administrative tech that requested your imaging first. Abdomen & [...] Office Visit Gastroenterology Negra Collins MD [facility] GASTROENTEROLOGY DEPT [place], [place] [address] (Wo bob) 09/05/2022 Appointment Cardiology Trinity Reid MD [facility] CARDIOLOGY [place], [place] [address] (Wo bob) 09/05/2022 Office Visit Cardiology Trinity Reid MD [facility] ER DR CARDIOLOGY [place], [place] [address] (Wo rk) documented as of [...] EDT) athologist Signature Neutrophils % 61.3 % [facility] LABORATORY Neutr Abs (ANC) 4.44 1.70 - [facility] [address] [facility] x10(3)/[facility] LABORATORY Lymphocytes % 25.2 % [facility] Lymphocytes Abs 1.8 0.9 - 3.2 [facility] x10(3)/[facility] LABORATORY Monocytes % 10.0 % [facility] Monocyte Abs 0.7 0.3 - 0.9 [facility] x10(3)/[facility] LABORATORY Eosinophils % 2.1 % [facility] Eosinophils Abs 0.2 0.0 - 0.4 [facility] x10(3)/[facility] LABORATORY Basophils % 0.7 % [facility] Basophils Abs 0.0 0.0 - 0.1 [facility] x10(3)/[facility] LABORATORY Immature Gran % 0.70 % [...] 0.05 (H) 0.00 - 0.04 x10(3)/[facility] LABORATORY Specimen Anatomical Collection Method Collection Time Receive d Time (Source) Location / / Volume Laterality Blood 06/02/2022 8:20 AM 8:25 EDT AM EDT Resulting Agency Comment Spec In Lab Kurt Ames MD HEMATOLOGY ORDERABLES Performing Organization Address City/State/ZIP Code Phon e Number [place] [id number] [facility] [address]ORY [address] (ABNORMAL) Hemogram (06/02/2022 8:20 AM EDT) Analysis Performed At Patho logist Time Signature WBC 7.2 4.0 - 9.5 [place] [facility] x10(3)/[facility] LABORATORY RBC 2.74 (L) 4.58 - [facility] [address] [facility] x10(6)/[facility] LABORATORY Hemoglobin 8.7 (L) 13.7 - [facility] 16.5 g/dL [facility] LABORATORY Hematocrit 25.7 (L) 40.5 - [facility] 48.5 % [facility] LABORATORY MCV 93.8 (H) 82.9 - [facility] 93.1 [facility] LABORATORY MCH 31.8 27.5 - [place] 32.1 pg [facility] LABORATORY MCHC 33.9 32.0 - [place] [facility] 35.7 g/dL [facility] LABORATORY Platelets 260 145 - 357 [facility] x10(3)/[facility] LABORATORY RDWSD 51.0 (H) 36.0 - [place] [facility] 45.0 [facility] LABORATORY RDWCV 14.9 (H) 11.4 - [facility] XIAO 13.8 % [facility] LABORATORY MPV 10.0 7.6 - 12.9 [facility] LABORATORY nRBC % Auto 0.0 % [facility] nRBC Abs Auto 0.000 0.000 - [place] [address] [facility] x10(3)/[facility] LABORATORY Specimen Anatomical Collection Method Collection Time Receive d Time (Source) Location / / Volume Laterality Blood 06/02/2022 8:20 AM 8:25 EDT AM EDT Resulting Agency Comment Spec In Lab Kurt Ames MD HEMATOLOGY ORDERABLES Performing Organization Address City/[facility]/[place]IP [place] [address] Heparin (unfractionated) Level (06/02/2022 6:30 AM EDT) athologist Signature Heparin UFH 0.39 IU/mL [facility] LABORATORY Comment: [...] Organization Address City/State/[place] [address] Heparin (unfractionated) Level (06/02/2022 12:30 AM EDT) athologist Signature Heparin UFH 0.81 IU/mL [facility] LABORATORY Comment: [...] Victor MD HEMATOLOGY ORDERABLES Performing Organization Address City/[facility]/ZIP Code Phon e Number [address] Magnesium (06/02/2022 12:30 AM EDT) athologist Signature Magnesium 0.83 0.69 - 1.07 [facility] mmol/L [facility] LABORATORY Specimen Anatomical Collection Method Collection Time Receive d Time (Source) Location / / Volume Laterality Blood 06/02/2022 12:30 06/02/2022 AM EDT 12:40 AM EDT Resulting Agency Comment Spec In Lab Mahendra Victor MD CHEMISTRY ORDERABLES Performing Organization Address City/[facility] Phon e Number [address] (ABNORMAL) Basic Metabolic Panel (non-fasting) (06/02/2022 12:30 AM EDT) athologist Signature Glucose Lvl 151 65 - 199 [facility] mg/dL [facility] LABORATORY Comment: Diabetes: >=200 mg/dL plus symp toms BUN 12 10 - 20 mg/dL [facility] LABORATORY Creatinine 0.71 (L) 0.80 - 1.50 mg/dL [facility] LABORATORY Sodium 142 135 - 145 [...] Organization Address City/State/ZIP Code Phon e Number [place] [id number] HOSPITAL LABORATORY Drive (ABNORMAL) Differential, Automated (06/01/2022 7:29 PM EDT) P athologist Signature Neutrophils % 68.8 % [facility] LABOR[facility]ORY Neutr Abs (ANC) 5.34 1.70 - [facility] [address] [facility] x10(3)/[facility] LABORATORY Lymphocytes % 19.6 % [facility] Lymphocytes Abs 1.5 0.9 - 3.2 [facility] x10(3)/[facility] LABORATORY Monocytes % 8.1 % [facility] Monocyte Abs 0.6 0.3 - 0.9 [facility] x10(3)/[facility] LABORATORY Eosinophils % 1.8 % [facility] Eosinophils Abs 0.1 0.0 - 0.4 [facility] x10(3)/[facility] LABORATORY Basophils % 0.8 % [facility] Basophils Abs 0.1 0.0 - 0.1 [facility] x[facility] LAB[facility]ATORY Immature Gran % 0.90 % [facility] [...] 0.07 (H) 0.00 - 0.04 x10(3)/[facility] LABORATORY Specimen Anatomical Collection Method Collection Time Receive d Time (Source) Location / / Volume Laterality Blood 06/01/2022 7:29 PM 7:29 EDT PM EDT Resulting Agency Comment Spec In Lab Kurt Ames MD HEMATOLOGY ORDERABLES Performing Organization Address City/State/[place] [address] (ABNORMAL) Hemogram (06/01/2022 7:29 PM EDT) Analysis Performed At Patho logist Time Signature WBC 7.8 4.0 - 9.5 [facility] x10(3)/[facility] LABORATORY RBC 2.65 (L) 4.58 - [place] [facility] [address] [facility] x10(6)/[facility] LABORATORY Hemoglobin 8.3 (L) 13.7 - [facility] 16.5 g/dL [facility] LABORATORY Hematocrit 24.8 (L) 40.5 - [facility] 48.5 % [facility] LABORATORY MCV 93.6 (H) 82.9 - [facility] XIAO 93.1 [facility] LABORATORY MCH 31.3 27.5 - [facility] 32.1 pg [facility] LABORATORY MCHC 33.5 32.0 - [facility] XIAO 35.7 g/dL [facility] LABORATORY Platelets 263 145 - 357 [facility] x10(3)/[facility] LABORATORY RDWSD 52.8 (H) 36.0 - [facility] 45.0 [facility] LABORATORY RDWCV 15.4 (H) 11.4 - [facility] XIAO 13.8 % [facility] LABORATORY MPV 10.4 7.6 - 12.9 [facility] LAB[facility] nRBC % Auto 0.0 % [facility] LABORATORY nRBC Abs Auto 0.000 0.000 - [place] [address] [facility] x10(3)/[facility] LABORATORY Specimen Anatomical Collection Method Collection Time Receive d Time (Source) Location / / Volume Laterality Blood 06/01/2022 7:29 PM 2 7:29 EDT PM EDT Resulting Agency Comment Spec In Lab Kurt Ames MD HEMATOLOGY ORDERABLES Performing Organization Address City/[facility]/ZIP Code Phon e Number [address] Heparin (unfractionated) Level (06/01/2022 7:29 PM EDT) P athologist Signature Heparin UFH 0.81 IU/mL [facility] LABORATORY Comment: [...] Organization Address City/State/[place] [address] (ABNORMAL) Heparin (unfractionated) Level (06/01/2022 11:32 AM EDT) Patholo gist Method Time Signature Heparin UFH 1.05 IU/mL [facility] Level (Critical) [facility] LABORATORY Comment: Critical Result called by ?? [...] Organization Address City/State/[place] [address] (ABNORMAL) Differential, Automated (06/01/2022 5:56 AM EDT) [facility] Method Time Signature Neutrophils % 62.7 % [facility] LABORATORY Neutr Abs (ANC) 6.11 (H) 1.70 - [facility] [address] [facility] x10(3)/[facility] LABORATORY Lymphocytes % 23.5 % [facility] LABORATORY Lymphocytes Abs 2.3 0.9 - 3.2 [facility] x10(3)/[facility] LABORATORY Monocytes % 10.0 % [facility] LABORATORY Monocyte Abs 1.0 (H) 0.3 - 0.9 [facility] x10(3)/[facility] LABORATORY Eosinophils % 2.2 % [facility] LABOR[facility]ORY Eosinophils Abs 0.2 0.0 - 0.4 [facility] x10(3)/[facility] LABORATORY Basophils % 0.9 % [facility] LABORATORY Basophils Abs 0.1 0.0 - 0.1 [facility] x10(3)/[facility] LABORATORY Immature Gran % 0.70 % [facility] [...] 0.07 (H) 0.00 - 0.04 x10(3)/[facility] LABORATORY Specimen Anatomical Collection Method Collection Time Receive d Time (Source) Location / / Volume Laterality Blood 06/01/2022 5:56 AM 6:05 EDT AM EDT Resulting Agency Comment Spec In Lab Arpita Valle MD HEMATOLOGY ORDERABLES Performing Organization Address City/State/ZIP Code Phon e Number [place] [id number] HOSPITAL LABORATORY Drive (ABNORMAL) Hemogram (06/01/2022 5:56 AM EDT) Analysis Performed At Patho logist Time Signature WBC 9.7 (H) 4.0 - 9.5 [facility] x10(3)/[facility] LABORATORY RBC 2.83 (L) 4.58 - [facility] XIAO [address] [facility] x10(6)/[facility] LABORATORY Hemoglobin 9.0 (L) 13.7 - [facility] 16.5 g/dL [facility] LABORATORY Hematocrit 26.7 (L) 40.5 - [facility] XIAO 48.5 % [facility] LABORATORY MCV 94.3 (H) 82.9 - [facility] 93.1 fL [facility] LABORATORY MCH 31.8 27.5 - [facility] 32.1 pg [facility] LABORATORY MCHC 33.7 32.0 - [facility] XIAO 35.7 g/dL [facility] LABORATORY Platelets 250 145 - 357 [facility] x10(3)/[facility] LABORATORY RDWSD 54.3 (H) 36.0 - [facility] 45.0 [facility] LABORATORY RDWCV 15.9 (H) 11.4 - [facility] H[place] 13.8 % [facility] LABORATORY MPV 10.5 7.6 - 12.9 [facility] XIAO [facility] LABORATORY nRBC % Auto 0.0 % [facility] LABOR[facility] nRBC Abs Auto 0.000 0.000 - [facility] 0.000 [facility] [facility] x10(3)/[facility] LABORATORY Specimen Anatomical Collection Method Collection Time Receive d Time (Source) Location / / Volume Laterality Blood 06/01/2022 5:56 AM 2 6:05 EDT AM EDT Resulting Agency Comment Spec In Lab Arpita Valle MD HEMATOLOGY ORDERABLES Performing Organization Address City/State/[place] [address] Heparin (unfractionated) Level (06/01/2022 4:30 AM EDT) athologist Signature Heparin UFH 0.68 IU/mL [facility] LABORATORY Comment: [...] Organization Address City/State/[place] [address] (ABNORMAL) Urinalysis with reflex Culture (06/01/2022 4:00 AM EDT) Patholo gist Method Time Signature Glucose UA 500 Negative [facility] (Critical) mg/dL [facility] LABORATORY Comment: Urinalysis result NOT critical without [...] 8.0 [facility] LABORATORY Blood UA Negative Negative mg/dL [facility] LABORATORY Ketones UA Negative Negative mg/dL [facility] LABORATORY Nitrite UA Negative Negative [facility] LABORATORY Leukocytes UA Negative Negative [facility] LABORATORY Appearance UA Clear Clear [facility] LABORATORY Spec [place] UA >=1.030 (A) 1.005 - 1.030 [facility] LABORATORY Color UA Yellow Yellow [facility] LABORATORY Culture Reflexed No [facility] LABORATORY Specimen Anatomical Collection Method Collection Time Receive d Time (Source) Location / / Volume Laterality Clean Catch 06/01/2022 4:00 AM 4:26 Urine EDT AM EDT Resulting Agency Comment Spec In Lab Mahendra Victor MD URINE ORDERABLES Performing Organization Address City/State/ZIP Code Phon e Number [address] Magnesium (06/01/2022 1:00 AM EDT) P athologist Signature Magnesium 0.93 0.69 - 1.07 [facility] mmol/L [facility] LABORATORY Specimen Anatomical Collection Method Collection Time Receive d Time (Source) Location / / Volume Laterality Blood 06/01/2022 1:00 AM 2 1:37 EDT AM EDT Resulting Agency Comment Spec In Lab Mahendra Victor MD CHEMISTRY ORDERABLES Performing Organization Address City/State/ZIP Code Phon e Number [facility] [place] [address] (ABNORMAL) Basic Metabolic Panel (non-fasting) (06/01/2022 1:00 AM EDT) P athologist Signature Glucose Lvl 148 65 - 199 [facility] mg/dL [facility] LABORATORY Comment: Diabetes: >=200 mg/dL plus symp toms BUN 23 (H) 10 - 20 mg/dL [facility] LABORATORY Creatinine 0.78 (L) 0.80 - 1.50 mg/dL [facility] [...] Organization Address City/State/[place] [address] (ABNORMAL) Differential, Automated (06/01/2022 12:00 AM EDT) athologist Signature Neutrophils % 64.6 % [facility] LABORATORY Neutr Abs (ANC) 5.60 1.70 - [facility] [address] [facility] x10(3)/[facility] LABORATORY Lymphocytes % 22.4 % [facility] LABORATORY Lymphocytes Abs 1.9 0.9 - 3.2 [facility] x10(3)/[facility] LABORATORY Monocytes % 9.5 % [facility] LABORATORY Monocyte Abs 0.8 0.3 - 0.9 [facility] x10(3)[facility] LABORATORY Eosinophils % 2.1 % [facility] LABORATORY Eosinophils Abs 0.2 0.0 - 0.4 [facility] x10(3)[facility] LABORATORY Basophils % 0.6 % [facility] LABORATORY Basophils Abs 0.0 0.0 - 0.1 [facility] x10(3)/[facility] LABORATORY Immature Gran % 0.80 % [facility] [...] 0.07 (H) 0.00 - 0.04 x10(3)/[facility] LABORATORY Specimen (Source) Anatomical Collection Method Collection Time Re ceived Time Location / / Volume Laterality Blood 06/01/2022 06/01/2022 12:1 0 AM EDT Resulting Agency Comment Spec In Lab Arpita Valle MD HEMATOLOGY ORDERABLES Performing Organization Address City/State/Z[place] [address] (ABNORMAL) Hemogram (06/01/2022 12:00 AM EDT) Analysis Performed At Patho logist Time Signature WBC 8.7 4.0 - 9.5 [facility] LAB[facility]ATORY RBC 2.77 (L) 4.58 - [place] [address] [facility] x10(6)/[facility] LABORATORY Hemoglobin 8.6 (L) 13.7 - [place] 16.5 g/dL [facility] LABORATORY Hematocrit 25.7 (L) 40.5 - [facility] XIAO 48.5 % [facility] LABORATORY MCV 92.8 82.9 - [facility] XIAO 93.1 [facility] LABORATORY MCH 31.0 27.5 - [place] 32.1 pg [facility] LABORATORY MCHC 33.5 32.0 - [place] 35.7 g/dL [facility] LABORATORY Platelets 260 145 - 357 [facility] x10(3)/[facility] LABORATORY RDWSD 51.9 (H) 36.0 - [facility] XIAO 45.0 [facility] LABORATORY RDWCV 15.5 (H) 11.4 - [place] 13.8 % [facility] LABORATORY MPV 10.4 7.6 - 12.9 [facility] nRBC % Auto 0.0 % [facility] LABORATORY nRBC Abs Auto 0.000 0.000 - [place] [address] [facility] x10(3)/[facility] LABORATORY Specimen (Source) Anatomical Collection Method Collection Time Re ceived Time Location / / Volume Laterality Blood 06/01/2022 06/01/2022 12:1 0 AM EDT Resulting Agency Comment Spec In Lab Arpita Valle MD HEMATOLOGY ORDERABLES Performing Organization Address City/State/ZIP Code [place] [address] (ABNORMAL) Differential, Automated (05/31/2022 9:17 PM EDT) P athologist Signature Neutrophils % 59.6 % [facility] LABORATORY Neutr Abs (ANC) 3.98 1.70 - [facility] [address] [facility] x10(3)/[facility] LABORATORY Lymphocytes % 27.5 % [facility] LABORATORY Lymphocytes Abs 1.8 0.9 - 3.2 [facility] x10(3)/[facility] LABORATORY Monocytes % 9.1 % [facility] LABORATORY Monocyte Abs 0.6 0.3 - 0.9 [facility] x10(3)/[facility] LABORATORY Eosinophils % 2.4 % [facility] LABORATORY Eosinophils Abs 0.2 0.0 - 0.4 [facility] x10(3)/[facility] LABORATORY Basophils % 0.7 % [facility] LABORATORY Basophils Abs 0.0 0.0 - 0.1 [facility] x10(3)/[facility] LABORATORY Immature Gran % 0.70 % [...] 0.05 (H) 0.00 - 0.04 x10(3)/[facility] LABORATORY Specimen Anatomical Collection Method Collection Time Receive d Time (Source) Location / / Volume Laterality Blood 05/31/2022 9:17 PM 9:25 EDT PM EDT Resulting Agency Comment Spec In Lab Arpita Valle MD HEMATOLOGY ORDERABLES Performing Organization Address City/State/ZIP Code Phon e Number [place] [id number] HOSPITAL LABORATORY Drive (ABNORMAL) Hemogram (05/31/2022 9:17 PM EDT) Analysis Performed At Patho logist Time Signature WBC 6.7 4.0 - 9.5 [facility] x10(3)/[facility] LABORATORY RBC 2.74 (L) 4.58 - [place] [address] [facility] x10(6)/[facility] LABORATORY Hemoglobin 8.5 (L) 13.7 - [facility] 16.5 g/dL [facility] LABORATORY Hematocrit 25.7 (L) 40.5 - [facility] 48.5 % [facility] LABORATORY MCV 93.8 (H) 82.9 - [facility] 93.1 [facility] LABORATORY MCH 31.0 27.5 - [facility] 32.1 pg [facility] LABORATORY MCHC 33.1 32.0 - [facility] 35.7 g/dL [facility] LABORATORY Platelets 233 145 - 357 [facility] x10(3)/[facility] LABORATORY RDWSD 51.9 (H) 36.0 - [facility] 45.0 [facility] LABORATORY RDWCV 15.3 (H) 11.4 - [facility] 13.8 % [facility] LABORATORY MPV 10.3 7.6 - 12.9 [facility] LABORATORY nRBC % Auto 0.0 % [facility] LABORATORY nRBC Abs Auto 0.000 0.000 - [facility] [address] [facility] x10(3)/[facility] LABORATORY Specimen Anatomical Collection Method Collection Time Receive d Time (Source) Location / / Volume Laterality Blood 05/31/2022 9:17 PM 9:25 EDT PM EDT Resulting Agency Comment Spec In Lab Arpita Valle MD HEMATOLOGY ORDERABLES Performing Organization Address City/State/Z[place] [address] Transfuse RBC (05/31/2022 7:36 PM EDT) Regina Hinds MD NURSING TREATMENT ORDERABLES - BLOOD ADMIN Transfuse RBC (05/31/2022 7:36 PM EDT) Regina Hinds MD NURSING TREATMENT ORDERABLES - BLOOD ADMIN UPPER GI ENDOSCOPY (05/31/2022 3:37 PM EDT) Component Value Ref Test Analysis Performed At Patholo gist Range Method Time Signature UPPER GI [facility] PROVATION ENDOSCOPY Endoscopy Procedure Date: 05/31/2022 3:37 PM ? Patient Name: Koko Zamora ? Date of : 1940 ? Age: 81 ? Order #: [id number] ? Instrument Name: [id number] ? Procedure: ? Upper GI endoscopy Indications: [...] Procedure Code(s): ? --- Professional --- ? 78120, Esophagogastroduode noscopy, ? flexible, transoral; with control [...] stomach ? and duodenum CPT copyright 2020 [employer]. All rights reserved. The codes documented in this report are preliminary and upon remote inpatient coder review may be revised to meet [...] have questions please contact the health care administrative tech that requested your imaging first. ? Narrative [...] enlarged lymph nodes. Vasculature: Patent common iliac, city surveyor al iliac, and common femoral arteries bilaterally. [...] enlarged lymph nodes. Vasculature: Patent common iliac, city surveyor al iliac, and common femoral arteries bilaterally. [...] have questions please contact the health care administrative tech that requested your imaging first. Regina Hinds MD IMG CT ORDERABLES Type and Screen Validity (05/31/2022 1:43 PM EDT) [facility] Method Time Signature T&S only valid [facility] LABORATORY Comment: This Type and Screen result is only valid at the [facility] Hospital Specimen Anatomical Collection Method Collection Time Receive d Time (Source) Location / / Volume Laterality Blood 05/31/2022 1:43 PM 2 1:57 EDT PM EDT Resulting Agency Comment Spec In Lab Regina Hinds MD BLOOD BANK ORDERABLES Performing Organization Address City/[facility]/[place] [address] ABORH Recheck Status (05/31/2022 1:43 PM EDT) [facility] Method Time Signature ABORH Type Completed [facility] LABORATORY Specimen Anatomical Collection Method Collection Time Receive d Time (Source) Location / / Volume Laterality Blood 05/31/2022 1:43 PM 2 1:57 EDT PM EDT Resulting Agency Comment Spec In Lab Regina Hinds MD BLOOD BANK ORDERABLES Performing Organization Address City/[facility]/[place] [address] Antibody screen (05/31/2022 1:43 PM EDT) [facility] Method [place] Signature Ab Screen Negative [facility] LABORATORY Expires at 06/03/2022 [facility] [id number] on: [facility] LABORATORY Specimen Anatomical Collection Method Collection Time Receive d Time (Source) Location / / Volume Laterality Blood 05/31/2022 1:43 PM 2 1:57 EDT PM EDT Resulting Agency Comment Spec In Lab Regina Hinds MD BLOOD BANK ORDERABLES Performing Organization Address City/[facility]/[place] [address] ABO/Rh Typing (05/31/2022 1:43 PM EDT) P athologist Signature ABORh Type O Pos [facility] LABORATORY Specimen Anatomical Collection Method Collection Time Receive d Time (Source) Location / / Volume Laterality Blood 05/31/2022 1:43 PM 2 1:57 EDT PM EDT Resulting Agency Comment Spec In Lab Regina Hinds MD BLOOD BANK ORDERABLES Performing Organization Address City/[facility] [place] [address] Prepare RBC (05/31/2022 1:35 PM EDT) P athologist Signature Dispensed? Yes [facility] LABORATORY Specimen Anatomical Collection Method Collection Time Receive d Time (Source) Location / / Volume Laterality Blood 05/31/2022 1:35 PM 2 1:30 EDT PM EDT Regina Hinds MD BLOOD BANK ORDERABLES Performing Organization Address City/[facility]/[place] [address] Prepare RBC (05/31/2022 1:25 PM EDT) P athologist Signature Dispensed? Yes [facility] LABORATORY Specimen Anatomical Collection Method Collection Time Receive d Time (Source) Location / / Volume Laterality Blood 05/31/2022 1:25 PM 2 1:23 EDT PM EDT Regina Hinds MD BLOOD BANK ORDERABLES Performing Organization Address City/[facility] [place] [address] (ABNORMAL) Differential, Automated (05/31/2022 12:44 PM EDT) P athologist Signature Neutrophils % 62.0 % [facility] LABORATORY Neutr Abs (ANC) 4.71 1.70 - [facility] [address] [facility] x10(3)/[facility] LABORATORY Lymphocytes % 24.1 % [facility] LABORATORY Lymphocytes Abs 1.8 0.9 - 3.2 [facility] x10(3)/[facility] LABORATORY Monocytes % 10.8 % [facility] LABORATORY Monocyte Abs 0.8 0.3 - 0.9 [facility] x10(3)/[facility] LABORATORY Eosinophils % 1.6 % [facility] LABORATORY Eosinophils Abs 0.1 0.0 - 0.4 [facility] x10(3)/[facility] LABORATORY Basophils % 0.7 % [facility] LABORATORY Basophils Abs 0.0 0.0 - 0.1 [facility] x10(3)/[facility] LABORATORY Immature Gran % 0.80 % [facility] [...] 0.06 (H) 0.00 - 0.04 x10(3)/[facility] LABORATORY Specimen Anatomical Collection Method Collection Time Receive d Time (Source) Location / / Volume Laterality Blood 05/31/2022 12:44 05/31/2022 PM EDT 12:57 PM EDT Resulting Agency Comment Spec In Lab Brittany Ramirez MD HEMATOLOGY ORDERABLES Performing Organization Address City/State/ZIP Code Phon e Number [place] [id number] HOSPITAL LABORATORY Drive (ABNORMAL) Hemogram (05/31/2022 12:44 PM EDT) Analysis Performed At Patho logist Time Signature WBC 7.6 4.0 - 9.5 [facility] x10(3)/[facility] LABORATORY RBC 2.11 (L) 4.58 - [facility] 5.[address] [facility] x10(6)/[facility] LABORATORY Hemoglobin 6.9 (L) 13.7 - [facility] 16.[facility] g/dL [facility] LABORATORY Hematocrit 20.8 (L) 40.5 - [facility] 48.5 % [facility] LABORATORY MCV 98.6 (H) 82.9 - [facility] 93.1 [facility] LABORATORY MCH 32.7 (H) 27.5 - [facility] 32.1 pg [facility] LABORATORY MCHC 33.2 32.0 - [facility] 35.7 g/dL [facility] Platelets 255 145 - 357 [facility] x10(3)/[facility] LABORATORY RDWSD 47.7 (H) 36.0 - [facility] 45.0 [facility] RDWCV 13.4 11.4 - [facility] 13.8 % [facility] LABORATORY MPV 10.7 7.6 - 12.9 [facility] LABORATORY nRBC % Auto 0.0 % [facility] nRBC Abs Auto 0.000 0.000 - [facility] [address] [facility] x10(3)/[facility] LABORATORY Specimen Anatomical Collection Method Collection Time Receive d Time (Source) Location / / Volume Laterality Blood 05/31/2022 12:44 05/31/2022 PM EDT 12:57 PM EDT Resulting Agency Comment Spec In Lab Brittany Ramirez MD HEMATOLOGY ORDERABLES Performing Organization Address City/State/[place] [address] (ABNORMAL) BLOOD GAS 2 VENOUS (05/31/2022 11:24 AM EDT) P athologist Signature pH [place] 7.38 7.32 - [facility] 7.42 [facility] LABORATORY pCO2 [place] 40 (L) 41 - 51 [facility] LABORATORY pO2 [place] 18 (L) 25 - 40 [facility] LABORATORY HCO3 [place] 23.3 mmol/L [facility] LABORATORY BE Marco Antonio -1.8 mmol/L [facility] LABORATORY Hgb Blood Gas 7.0 (L) 13.7 - [facility] 16.5 g/dL [facility] LABORATORY O2HB [place] 24.3 % [facility] LABORATORY COHB [place] 1.4 % [facility] Comment: Nonsmokers: 0.5-1.5% COHB Smokers: Variable, but usually less than 10% Toxic: 20-30% COHB Lethal: Greater than 60% COHB METHB [place] 1.7 (H) <=1.5 % [facility] LABORATORY Na Whole Blood 137 [...] Bld 204 (H) 65 - 199 mg/dL [facility] LABORATORY Comment: Diabetes: >=200 mg/dL plus symp toms Lactate WB 1.4 0.5 - 2.2 mmol/L [facility] LABORATORY BGas Source Venous [facility] LABORATORY Specimen Anatomical Collection Method Collection Time Receive d Time (Source) Location / / Volume Laterality Blood 05/31/2022 11:24 05/31/2022 AM EDT 11:24 AM EDT Regina Hinds MD CHEMISTRY ORDERABLES Performing Organization Address City/State/Z[place] [address] TSH [place] (05/31/2022 11:20 AM EDT) P athologist Signature TSH 1.67 0.27 - 4.20 [facility] mcIU/mL [facility] LABORATORY Comment: Reference Interval (mcIU/mL): Females: ??First Trimester: 0.23-3.88 ??Second Trimester: 0.22-3.90 ??Third Trimester: 0.44-4.66 Specimen Anatomical Collection Method Collection Time Receive d Time (Source) Location / / Volume Laterality Blood 05/31/2022 11:20 05/31/2022 AM EDT 11:28 AM EDT Resulting Agency Comment Spec In Lab Regina Hinds MD CHEMISTRY ORDERABLES Performing Organization Address City/State/Z[place] [address] XR Chest PA & [...] have questions please contact the health care administrative tech that requested your imaging first. ? Narrative [...] have questions please contact the health care administrative tech that requested your imaging first. Regina Hinds MD IMG DX ORDERABLES Lipase (05/31/2022 10:50 AM EDT) athologist Signature Lipase 41 0 - 60 [facility]/L [facility] LABORATORY Specimen Anatomical Collection Method Collection Time Receive d Time (Source) Location / / Volume Laterality Blood Venous Draw / 05/31/2022 10:50 05/31/2022 Unknown AM EDT 11:11 AM EDT Resulting Agency Comment Spec In Lab Zain Champion MD CHEMISTRY ORDERABLES Performing Organization Address City/State/Z[place] [address] (ABNORMAL) Hepatic Function Panel (05/31/2022 10:50 AM EDT) Analysis Performed At Patho logist Time Signature Total Protein 6.4 6.1 - 8.0 [facility] XIAO g/dL [facility] LABORATORY Albumin 4.1 3.2 - 5.2 [facility] XIAO g/dL [facility] LABORATORY AST 24 0 - 39 [facility]/L [facility] LABORATORY ALT 44 0 - 55 [facility] unit/L [facility] LABORATORY Alk Phos 63 40 - 130 [facility]L [facility] LABORATORY Total <0.2 (L) 0.2 - 1.3 [facility] Bilirubin mg/dL [facility] LABORATORY Bili, Direct 0.1 0.0 - 0.3 [facility] mg/dL [facility] LABORATORY Specimen Anatomical Collection Method Collection Time Receive d Time (Source) Location / / Volume Laterality Blood Venous Draw / 05/31/2022 10:50 05/31/2022 Unknown AM EDT 11:11 AM EDT Resulting Agency Comment Spec In Lab Zain Champion MD CHEMISTRY ORDERABLES Performing Organization Address City/[facility]/ZIP Code Phon e Number [address] Blue Tube HOLD (05/31/2022 10:50 AM EDT) P athologist Signature Blue Hold Sample in [facility] lab. [facility] LABORATORY Specimen Anatomical Collection Method Collection Time Receive d Time (Source) Location / / Volume Laterality Blood Venous Draw / 05/31/2022 10:50 05/31/2022 Unknown AM EDT 11:05 AM EDT Brittany Ramirez MD HEMATOLOGY ORDERABLES Performing Organization Address City/[facility]/ZIP Code Phon e Number [address] (ABNORMAL) Differential, Automated (05/31/2022 10:50 AM EDT) P athologist Signature Neutrophils % 66.9 % [facility] LABORATORY Neutr Abs (ANC) 5.58 1.70 - [facility] [address] [facility] x10(3)/[facility] LABORATORY Lymphocytes % 22.2 % [facility] LABORATORY Lymphocytes Abs 1.8 0.9 - 3.2 [facility] x10(3)/[facility] LABORATORY Monocytes % 7.8 % [facility] LABORATORY Monocyte Abs 0.6 0.3 - 0.9 [facility] x10(3)/[facility] LABORATORY Eosinophils % 1.2 % [facility] LABORATORY Eosinophils Abs 0.1 0.0 - 0.4 [facility] x10(3)/[facility] LABORATORY Basophils % 0.7 % [facility] LABORATORY Basophils Abs 0.1 0.0 - 0.1 [facility] x10(3)/[facility] LABORATORY Immature Gran % 1.20 % [facility] [...] 0.10 (H) 0.00 - 0.04 x10(3)/[facility] LABORATORY Specimen Anatomical Collection Method Collection Time Receive d Time (Source) Location / / Volume Laterality Blood 05/31/2022 10:50 05/31/2022 AM EDT 11:03 AM EDT Resulting Agency Comment Spec In Lab Brittany Ramirez MD HEMATOLOGY ORDERABLES Performing Organization Address City/State/ZIP Code Phon e Number [place] [id number] HOSPITAL LABORATORY Drive (ABNORMAL) Hemogram (05/31/2022 10:50 AM EDT) Analysis Performed At Patho logist Time Signature WBC 8.3 4.0 - 9.5 [facility] x10(3)/[facility] LABORATORY RBC 2.26 (L) 4.58 - [facility] [address] [facility] x10(6)/[facility] LABORATORY Hemoglobin 7.4 (L) 13.7 - [facility] 16.[facility] g/dL [facility] LABORATORY Hematocrit 22.3 (L) 40.5 - [facility] 48.5 % [facility] LABORATORY MCV 98.7 (H) 82.9 - [facility] 93.1 fL [facility] LABORATORY MCH 32.7 (H) 27.5 - [place] 32.1 pg [facility] LABORATORY MCHC 33.2 32.0 - [place] [place] 35.7 g/dL [facility] LABORATORY Platelets 283 145 - 357 [facility] x10(3)/[facility] LABORATORY RDWSD 47.0 (H) 36.0 - [place] 45.0 [facility] LABORATORY RDWCV 13.4 11.4 - [facility] 13.8 % [facility] LABORATORY MPV 10.8 7.6 - 12.9 [place] [place] [facility] LABORATORY nRBC % Auto 0.0 % [facility] LABORATORY nRBC Abs Auto 0.000 0.000 - [facility] XIAO [address] [facility] x10(3)/[facility] LABORATORY Specimen Anatomical Collection Method Collection Time Receive d Time (Source) Location / / Volume Laterality Blood 05/31/2022 10:50 05/31/2022 AM EDT 11:03 AM EDT Resulting Agency Comment Spec In Lab Brittany Ramirez MD HEMATOLOGY ORDERABLES Performing Organization Address City/State/ZIP Code Phon e Number [address] Phosphorus (05/31/2022 10:50 AM EDT) P athologist Signature Phosphorus 3.2 2.5 - 4.5 [facility] XIAO mg/dL [facility] Specimen Anatomical Collection Method Collection Time Receive d Time (Source) Location / / Volume Laterality Blood 05/31/2022 10:50 05/31/2022 AM EDT 11:03 AM EDT Resulting Agency Comment Spec In Lab Regina Hinds MD CHEMISTRY ORDERABLES Performing Organization Address City/State/ZIP Code Phon e Number [address] Magnesium (05/31/2022 10:50 AM EDT) P athologist Signature Magnesium 0.93 0.69 - 1.07 [facility] [place] mmol/L [facility] Specimen Anatomical Collection Method Collection Time Receive d Time (Source) Location / / Volume Laterality Blood 05/31/2022 10:50 05/31/2022 AM EDT 11:03 AM EDT Resulting Agency Comment Spec In Lab Regina Hinds MD CHEMISTRY ORDERABLES Performing Organization Address City/State/ZIP Code Phon e Number [address] (ABNORMAL) pro-Brain Natriuretic Peptide (05/31/2022 10:50 AM EDT) athologist Signature ProBNP 1,077 (H) <=449 [facility] Careem pg/mL [facility] Specimen Anatomical Collection Method Collection Time Receive d Time (Source) Location / / Volume Laterality Blood 05/31/2022 10:50 05/31/2022 AM EDT 11:03 AM EDT Resulting Agency Comment Spec In Lab Regina Hinds MD CHEMISTRY ORDERABLES Performing Organization Address City/State/[place] [address] Troponin (05/31/2022 10:50 AM EDT) athologist Signature Troponin-T <0.01 0.00 - 0.00 [facility] [place] ng/mL [facility] Comment: The 99th percentile for Troponin T is le ss than 0.01 ng/mL, any detectable cTnT concentration using this assay should be considered elevated. According to the third universal definit ion of myocardial infarction the following criteria with a clinical prese ntation consistent with acute myocardial ischemia meets the diagnosis for a myocardial infarction (VT). Detection of a rise and/or fall of [...] additional sample may be indicated. Reference: Third [place] Definition of Myocardial Infarction. Journal of the [place] [employer] 2012;60:1581-98 Specimen Anatomical Collection Method Collection Time Receive d Time (Source) Location / / Volume Laterality Blood 05/31/2022 10:50 05/31/2022 AM EDT 11:03 AM EDT Resulting Agency Comment Spec In Lab Regina Hinds MD CHEMISTRY ORDERABLES Performing Organization Address City/State/ZIP Code Phon e Number [place] [phone] (ABNORMAL) Basic Metabolic Panel (non-fasting) (05/31/2022 10:50 AM EDT) athologist Signature Glucose Lvl 223 (H) 65 - 199 [facility] mg/dL [facility] Comment: Diabetes: >=200 mg/dL plus symp toms BUN 39 (H) 10 - 20 mg/dL [facility] LABORATORY Creatinine 0.91 0.80 - 1.50 mg/dL [facility] LABORATORY Sodium 140 135 - 145 [...] Organization Address City/State/[place] [address] EKG 12 Lead (05/31/2022 10:11 AM EDT) Component Value Ref Range Test Analysis Performed Pathologis t Method Time At Signature Ventricular rate 106 BPM MUSE SYSTEM QRS Duration 122 ms MUSE SYSTEM Q-T Interval 368 ms MUSE SYSTEM QTC Calculated 488 ms MUSE SYSTEM (Bezet) Calculated R [place] -43 degrees MUSE SYSTEM Calculated T [place] 109 degrees MUSE SYSTEM INTERPRETATION Atrial fibrillation with rapid ventricular response MUSE SYSTEM Left axis deviation Minimal voltage criteria for LVH, may be normal variant ( Whick product ) Cannot rule out Anterior infarct , age undetermined Abnormal ECG When compared with ECG of 20-MAY-2022 19:04, No significant change was found I personally reviewed the tracing and edited the fellows int erpretation Confirmed by fellow MD Mike, [place] ([id number]) on 022 8:36:21 PM Confirmed by MD [...] (Lidoderm) 5% patch 2 patch(Linked Group 1) [id number] (Patch Applied - Provider: aRven Barbour RN - Comment: Left lower leg [...] - Less than 0.1 international unit/mL: Ad elementary education teacher 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 0-4,000 Units, Intravenous, BOLUS PER [facility] PROTOCOL, Starting on Fri05/31/22 at 2014, Until [...]
Routine documented in this encounter Care Teams Arson Investigator Relationship Specialty Start Date End Date Bobby Das MD PCP - General 10/02/[address] [place] [address] [place] [phone] documented as of this encounter
--- OUTSIDE RECORDS SUMMARY | 2022-07-12 09:39 | XMS_ITS | Encounter Summary ---
:1940 Author Organization [place] [address] Care Team Providers Name Role Phone Bobby Das MD Primary Care Provider Encounter Details Date Type Department Care Team Description 05/28/2022 Telephone Vascular Surgery at [facility] Dominique Bolivar, [place] [address] Social History Tobacco Use Types Packs/Day [...] RN - 05/28/2022 1:20 PM EDT This technical document writer returned phone call due to 's [...] cardiac history and symptoms of lightheadedness, this technical document writer recommended the patient be evaluated. Discussed [...] [facility] DR GASTROENTEROLOGY DEPT [place], [place] [address] (Wo rk) 09/05/2022 Appointment Cardiology Trinity Reid MD [facility] CARDIOLOGY [place], [place] [address] (Wo rk) 09/05/2022 Office Visit Cardiology Trinity Reid MD [facility] CARDIOLOGY [place], [place] [address] (Wo rk) documented as of this encounter Visit Diagnoses Not on filedocumented in this encounter Care Teams Assembler Metal Building Relationship Specialty Start Date End Date Bobby Das MD PCP - General 10/02/[address] [place] [address] [place] [phone] documented as of this encounter
--- OUTSIDE RECORDS SUMMARY | 2022-07-12 09:39 | XMS_ITS | Encounter Summary ---
:1940 [place] [address] Care Team Providers Name Role Phone Bobby Das MD Primary Care Provider Reason for Referral Diagnostic Test (Routine) - Closed Specialty Diagnoses / Procedures Referred By Contact Refer red To Contact Cardiology Diagnoses Paroxysmal atrial fibrillation Nasrin Parra PA [facility] Non-Inv Card Lab Procedures Ziopatch 48 Hrs-15 Days [facility] VASCULAR SURGERY [place], [place] [id number] [place] [phone] Fax: Referral ID Status Reason Start Date Expiration Date Visits V isits Requested Authorized [id number] Closed Specialty 05/21/2022 10/21/2022 1 1 Service Requested Reason for Visit Auth/Cert Specialty Diagnoses / Procedures Referred By Contact Refer red To Contact Diagnoses Limb ischemia LLE thrombus Fito Summers MD [facility] [place] [address] Referral ID Status Reason Start Date Expiration Date Visits Requ ested Visits Authorized [id number] 1 1 Encounter Details Date Type Department Care Team Description 05/21/2022 Hospital Encounter Non-Invasive Paroxysma l atrial Cardiology [place] [address] Social History Tobacco Use Types Packs/Day [...] 04/12/20 21 (FLONASE) 50 mcg/actuation Nare route [place], Suspension daily as needed. fluorouraciL (EFUDEX) 5 [...] [facility] DR GASTROENTEROLOGY DEPT [place], [place] [address] (Wo rk) 09/05/2022 Appointment Cardiology Trinity Reid MD [facility] CARDIOLOGY [place], [place] [address] (Wo rk) 09/05/2022 Office Visit Cardiology Trinity Reid MD [facility] CARDIOLOGY [place], [place] [address] (Wo rk) documented as of [...] fibrillation documented in this encounter Care Teams Revenue Audit Clerk Relationship Specialty Start Date End Date Bobby Das MD PCP - General 10/02/[address] [place] [address] [place] [phone] documented as of this encounter
--- OUTSIDE RECORDS SUMMARY | 2022-07-12 09:39 | XMS_ITS | Encounter Summary ---
:1940 Author Organization [facility] [place] [address] Care Team Providers Name Role Phone Bobby Das MD Primary Care Provider Encounter Details Date Type Department Care Team Description 05/24/2022 Telephone Cardiology at [facility] Kourtney Jimenez, RN [facility] [place] [address] Social History Tobacco Use Types Packs/Day [...] Negra Collins MD [facility] DR GASTROENTEROLOGY DEPT [place], [place] [address] (Wo rk) 09/05/2022 Appointment Cardiology Trinity Reid MD [facility] CARDIOLOGY [place], [place] [address] (Wo rk) 09/05/2022 Office Visit Cardiology Trinity Reid MD [facility] CARDIOLOGY [place], [place] [address] (Wo rk) documented as of this encounter Visit Diagnoses Not on filedocumented in this encounter Care Teams Washer Operator Relationship Specialty Start Date End Date Bobby Das MD PCP - General 10/02/[address] [place] [address] [place] [phone] documented as of this encounter
--- OUTSIDE RECORDS SUMMARY | 2022-07-12 09:40 | XMS_ITS | Encounter Summary ---
:1940 Author Organization [facility] [place] [address] Care Team Providers Name Role Phone Bobby Das MD Primary Care Provider Reason for Referral Consultation (Routine) - Authorized Specialty Diagnoses / Procedures Referred By Contact Refer red To Contact Diagnoses Non-ST elevation myocardial infarction (NSTEMI) Limb ischemia Nasrin Parra PA [facility] Tobacco Treatment [facility] [place] [address] [place] [address] Referral ID Status Reason Start Date Expiration Visits Visits Date Requested Authorized [id number] Authorized Consult, 05/21/2022 05/21/2023 1 1 Test & Treat iagnostic Test (Routine) - Closed Specialty Diagnoses / Procedures Referred By Contact Refer red To Contact Cardiology Diagnoses Paroxysmal atrial fibrillation Nasrin Parra PA [facility] Non-Inv Card Lab Procedures Ziopatch 48 Hrs-15 Days [facility] [place] [address] [place] [address] Fax: Referral ID Status Reason Start Date Expiration Date Visits V isits Requested Authorized [id number] Closed Specialty 05/21/2022 10/21/2022 1 1 Service Requested Consultation (Routine) - Closed Specialty Diagnoses / Procedures Referred By Contact Refer red To Contact Cardiology Diagnoses HFrEF (heart failure with reduced ejection fraction) Paroxysmal atrial fibrillation Post-hospital follow-up, s/p PCI with stenting, heart failure Nasrin Parra PA [facility] Cardiology 4a [facility] [place] [address] [place] [address] Referral ID Status Reason Start Date Expiration Date Visits V isits Requested Authorized [id number] Closed Consult, 05/21/2022 05/21/2023 1 1 Test & Treat iagnostic Test (Routine) - Authorized Specialty Diagnoses / Procedures Referred By Contact Refer red To Contact Diagnoses Limb ischemia Nasrin Parra PA [facility] Vascular Lab 3v Procedures JOSSELYN, legs, multiple levels [facility] [place] [address] [place] [address] Referral ID Status Reason Start Expiration Visits Visits Date Date Requested Authorized [id number] Authorized Specialty 05/21/2022 05/21/2023 1 1 Service Requested [facility] (Routine) - Authorized Specialty Diagnoses / Procedures Referred By Contact Refer red To Contact Diagnoses Limb ischemia Fito Summers MD Home Health & Hospice, [facility] VASCULAR SURGERY [address] [place] [address] [address] Fax: Referral ID Status Reason Start Date Expiration Visits Visits Date Requested Authorized [id number] Authorized Consult, 05/21/2022 11/17/2022 999 999 Test & Treat Reason for Visit Reason Comments Left Leg Pain Auth/Cert Specialty Diagnoses / Procedures Referred By Contact Refer red To Contact Diagnoses Limb ischemia LLE thrombus Fito Summers MD [facility] [place] [address] Referral ID Status Reason Start Date Expiration Date Visits Requ ested Visits Authorized [id number] 1 1 Encounter Details Date Type Department Care Team Description 05/15/2022 - Hospital Intermediate Cardiac Ravi Summers MD [facility] [place] [address] Atrial fibrillation, unspecified type; 05/21/2022 Encounter Care Unit Wellington Gerard MD [facility] [place] [address] Non-ST elevation myocardial infarction ( NSTEMI); [facility] Limb isch emia; [facility] HFrEF (heart failure with re duced ejection fraction); [facility] [place]oxysma [place] [address] Social History Tobacco Use Types Packs/Day Years [...] Afib who presents in transfer from [facility] with acute limb ischemia of the LLE. [...] emergently went to the OR for L ACUTE CARE NURSING ASSISTANT transverse arteriotomy and primary repair, thromboembolectomy of L SFA/PFA/ACUTE CARE NURSING ASSISTANT, reperfusion venous drainage for 250 cc, and [...] Discharge Condition: Good Discharge to: Home with [address] [address] Future Appointments and Orders Future Appointments and Orders Future Appointments Provider Department Dept Phone 05/23/2022 10:30 AM Loretta Cohen MD Dermatology at [facility] Arrive at: Transmitter Engineer In Charge [address] [place] [address] 06/07/2022 1:30 PM Gail Rae APRN Vascular Surgery at [facility] Arrive at: Transmitter Engineer In Charge Area [phone] 06/13/2022 7:30 AM Edson Lagos [place] Vascular Lab at [facility] Arrive at: Transmitter Engineer In Charge Area [phone] 06/13/2022 8:00 AM Fito Summers MD Vascular Surgery at [facility] Arrive at: Transmitter Engineer In Charge Area [phone] 06/13/2022 10:00 AM Alan Reid MD Cardiology at [facility] Arrive at: Transmitter Engineer In Charge Area [phone] Future Orders Complete By Expires Demetriusopatch 48 Hrs-15 Days [[id number] CPT(R)] 05/21/2022 11/20/2022 Process Instructions: Scheduling Instructions: Comments: Questions: Does the patient have a pacemaker? If yes provide HI/LO settings: Apply for 7 or 14 days?: 7 Where will study be performed?: [facility] Clinics JOSSELYN, legs, multiple levels [VAS8 Custom] 06/21/2022 (Approximate) 12/21/2022 Process Instructions: There is no in-house vascular laboratory phlebotomist available on weeknights (5pm-8am), weekends, or holidays. IF THIS IS A REQUEST FOR AN EMERGENT STUDY DURING THOSE HOURS, please have the senior provider responsible for the patient page the Vascular Surgery Fellow/Senior Resident neuropsychology division chief to discuss options. Scheduling Instructions: Questions: Indication for study/signs & symptoms: ALI s/p L fem cutdown with thromboembolectomy Question to be answered: Perfusion to feet? Please check toe pressure Preferred location?: [facility] Clinics Referral to Cardiology [REF12 Custom] As [...] Zamora for admission to Home Health. [address] [facility] [address] (home) Date of : 1940 Inpatient DOCUMENTATION FOR VNA SERVICES (INCLUDING THOSE PATIENTS WITH MEDICARE COVERAGE REQUIRING HOME VNA SERVICES AND/OR HOSPICE SERVICES) PATIENT'S LOCATION: Koko Zamora [address] [facility] [id number] (home) Cell: No relevant phone numbers on file. Supervisor Network Control Operators's Name: Koko In discussion with the attending physician, it is certified that this patient is under their care and that they, or a Nurse Practitioner,Clinical Nurse specialist or Physician Airframe Design Engineer who is working directly with them, had [...] for managing ADL's. HOME HEALTH CARE AGENCY: [facility] [address] [place] [id number] Start of care: Within 24 to 48 [...] obtained from this patient'sPCP: Bobby Das MD [address] [place] [phone] All A agencies which cover the [...] For any problems or questions please call [phone] For issues on weeknights after 5pm and weekends please call [phone] and ask for the Vascular Fellow neuropsychology division chief. JOSEE Santiago Vascular Surgery 05/21/2022 documented in [...] For any problems or questions please call [phone] For issues on weeknights after 5pm and weekends please call [phone] and ask for the Vascular Fellow neuropsychology division chief. documented in this encounter Medications at Time [...] 21 (FLONASE) 50 mcg/actuation Nare route [place], Suspension daily as needed. fluorouraciL (EFUDEX) 5 [...] Afib who presents in transfer from [facility] with acute limb ischemia of the LLE. [...] status, full code. JOSEE Santiago 05/21/2022 Pager: [phone] Brannon Isaacs, PT - 05/21/2022 10:35 AM [...] plan as stated. Time IN / OUT: 7886-7295 Total Minutes, Physical Therapy: 25 Billing Code: 2 BOSTON Isaacs DPT Pager: [phone] Physical Therapy Inpatient Rehabilitation Department Wellington Jean [...] Intermediate Cardiac Care Unit [facility] Office Visit from 04/17/2021 in Pain and Spine Center at [facility] Weight 79.8 kg (175 lb 14.8 oz) [...] and plan of care per Dr. Mcnamara (crozer operator). 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 Mcnamara (crozer operator). Please refer to her note above for [...] a mitral repair in 2000 (not at [facility]) with no CAD at that time. Currently, [...] AF and the first documented HR at [facility] was 125 bpm (presented to an an [...] Afib who presents in transfer from [facility] with acute limb ischemia of the LLE. [...] management following Dottie Hill APRN 05/20/2022 Pager: [phone] Laney Atkins RN - 05/20/2022 1:14 AM EDT Pt Koko transferred to room from [facility]. A&Ox4, oriented to room and call boo. Masimo and telemetry placed. In agreement with assessment as documented this evening by Nuris ASHLEY. No complaints at this time. Pt aware of NPO status and plan for cardiac cath in AM. Urinal provided. Resting comfortably in bed. Nuris Lester RN - 05/20/2022 1:09 AM EDT Pt. Transferred to [facility]. RN accompanied patient to floor and handed off to [facility] RN Dottie Hill APRN - 05/19/2022 10:02 AM EDT Vascular Surgery Progress Note Koko Zamora is a 81 y.o. male with w new onset Afib who presents in transfer from [facility] with acute limb ischemia of the LLE. ?? The patient had sudden pain starting at 630 05/15/22, he presented [facility] where he was placed on heparin. [...] management following Dottie Hill APRN 05/19/2022 Pager: [phone] Emily Greer RN - 05/19/2022 6:28 AM EDT OUTCOME EVALUATION NOTE: OUTCOME SUMMARY: Patient AOx4, VSS on RA. Afib on tele. HR controlled w/ PRN metop, given x2. Denies CP, SOB, n/v. See flowsheets for NVC. Dressings to LLE CDI, prevena [place] to groin intact. Voiding to urinal. LBM MANAGER INTERNET, patient stating he will maybe try the [...] adequately without difficulty to bedside urinal. LBM MANAGER INTERNET. Up to chair this AM with nursing staff. Worked with PT, tolerated well. Diet changed to regular at 1800.Plan is for cardiac cath on Friday. PLAN MOVING FORWARD: Bleeding precautions Pain management neurovascular checks PT/OT laboratory technologist INDIVIDUALIZED FALL PREVENTION INTERVENTIONS: Patient-specific fall [...] Afib who presents in transfer from [facility] with acute limb ischemia of the LLE. [...] mL Intravenous BID ??? PHENobarbitaL 0.12 mg/kg/dose (Almyra) Oral BID ??? thiamine 100 mg Oral [...] management following Dottie Hill APRN 05/18/2022 Pager: [phone] Brannon Isaacs, PT - 05/18/2022 10:00 AM [...] at [facility] MAIN OR Social History: Pt lives [...] in this evaluation. Time IN / OUT: 7742-4276 Total Minutes, Physical Therapy: 30 Billing Code: Basilio Isaacs, PT Pager: [phone] Physical Therapy Inpatient Rehabilitation Department Emily Sauceda RN - 05/18/2022 4:34 AM EDT OUTCOME EVALUATION NOTE: OUTCOME SUMMARY: Patient AOx4, VSS on 2LNC. Afib on tele. HR above 120, MD aware, PRN IV metop given x1, HR returned to 90's-low 100's. Denies CP, SOB, n/v. See flowsheets for NVC. Dressings to LLE CDI, prevena [place] to groin intact. Voiding to urinal. LBM MANAGER INTERNET. Heparin gtt therapeutic. Pain controlled. Patient sleeping [...] adequately without difficulty to bedside urinal. LBM MANAGER INTERNET. Patient not OOB this shift. Currently NPO awaitingprocedure in offset label rewinder. PLAN MOVING FORWARD: Bleeding precautions Pain management neurovascular checks PT/OT NPO for offset label rewinder INDIVIDUALIZED FALL PREVENTION INTERVENTIONS: Patient-specific fall risk [...] Emergency Department as a transfer from [facility] with left lower extremity limb ischemia. He went to [facility] and was startedon heparin and transferred to [facility] for evaluation by vascular surgery [...] he will will be going to the offset label rewinder for evaluation. Will defer PT eval at present but will see as ordered post cardiac catheritizaton. Social Hx:Pt lives with his Ursula in [place], [place] in a 2 level home in [...] WBAT LLE LISBET HERMAN PT Pager # [phone] In-Pt Rehab Medicine Dottie Hill APRN - 05/17/2022 7:42 AM EDT Vascular Surgery Progress Note Koko Zamora is a 81 y.o. male with w new onset Afib who presents in transfer from [facility] with acute limb ischemia of the LLE. [...] mL Intravenous BID ??? PHENobarbitaL 0.24 mg/kg/dose (Almyra) Oral BID Followed by ??? [START ON 05/18/2022] PHENobarbitaL 0.12 mg/kg/dose (Almyra) Oral BID ??? thiamine 100 mg Oral [...] management following Dottie Hill APRN 05/17/2022 Pager: [phone] Sary Dos Santos, RN - 05/17/2022 12:16 [...] Afib who presents in transfer from [facility] with acute limb ischemia of the LLE. [...] mL Intravenous BID ??? PHENobarbitaL 0.48 mg/kg/dose (Almyra) Oral BID Followed by ??? [START ON 05/17/2022] PHENobarbitaL 0.24 mg/kg/dose (Almyra) Oral BID Followed by ??? [START ON 05/18/2022] PHENobarbitaL 0.12 mg/kg/dose (Almyra) Oral BID ??? thiamine 100 mg Oral [...] management following Edward Rodríguez MD 05/16/2022 Pager: [phone] Sary Dos Santos RN - 05/16/2022 12:52 [...] 2129 Hand off to DION Ramirez 3 jefferson documented in this encounter H&P Notes Kerry [...] Afib who presents in transfer from [facility] with acute limb ischemia of the LLE. [...] MD [facility] INTERVENTIONL RAD Social Hx: Social History [...] Refill ??? fluticasone propionate (FLONASE) 50 mcg/actuation [place], Suspension as needed. ??? fluorouraciL (EFUDEX) 5 [...] and consented. Tim Chicas MD 05/15/2022 Pager: [phone] documented in this encounter ED Notes Lc Harris PA - 05/15/2022 1:20 PM EDT ED Provider Note HPI: Koko Zamora is a 81 y.o. male with history of atrial fibrillation not on anticoagulation, and GI bleeding who presents to the Emergency Department as a transfer from [facility] with left lower extremity limb ischemia. Patient says that the symptoms started roughly 630 this morning when he developed severe pain in his left lower extremity. He went to [facility] and was started on heparin and transferred to [facility] for evaluation by vascular surgery. [...] lower extremity earlier today and went to [facility] where it was determined that he had ischemia of the left lower extremity. Vascular surgery [facility] was contacted and he was transferred [...] orders before pt. Arrival. Pt. Arrived at [facility] by EMS at 1150, vascular team at [...] an outpatient cardiac rehabilitation program at [facility] was discussed. Patient agrees to a referral to this program. Timing will depend on his recovery from Vascular surgery. He is going home w/VNA PT. I gave him the brochure for the program at [facility] for future reference. Care Management Discharge - [...] information for follow-up Home Health & Hospice, [place] [address] [place] [address] Transportation: family or friend will provide Functional [...] Type: *No Product type* / Secondary Insurance: [facility] Prescription Coverage: Yes This plan was formulated with input from patient and team. All are in agreement with plan. IP RS has communicated with [place] - for initial IMM. RAlmita (Satish) DINO López RN/CM - Cellphone: [phone] Pager: [phone] Covering Service RN/CM Plan of Care - [...] catheterization, transferred in hospital bed accompanied by Deli Department Manager RN, remains on telemetry monitoring. Heparin gtt [...] Type: *No Product type* / Secondary Insurance: [facility] Last Physical Therapy Recommendation: home with home health, home with supervision with None Last Occupational Therapy Recommendation: with Plan for discharge is: Home w/ Services Outpatient Agency/Support Group Needs: None Home Health Services: Registered Nurse, Physical Therapy, Occupational Therapy Agency Referrals: I have met with the patient to: ?? discuss discharge planning needs. ?? provide the [facility], Office of Care Management letter from the Reporting Developer pertaining to rehab referrals. ?? provide a letter describing our affiliations within the [facility] and educate about their right to choose where referrals are sent. ?? provide a list of Home Health Agencies / Durable Medical Equipment vendors which serve their preferred geographic area. ?? provided patient with [facility] Star Quality Rating handout. They have requested referrals to: [facility]. [address] [place] [address] Note routed to a Dough Cutter who will communicate referrals to facilities and provide any required information. Transportation: family or friend will provide Barriers to discharge: None Plan going forward: Patient is going for a cardiac cath today and plan will come from there. Patientwas recently seen by PT and they recommend VNA at time of discharge. [facility] was routed and pendedat this time. Care Management will continue to follow and assist with discharge planning and coordination of care as indicated. Anticipated Date of Discharge: 05/21/2022 Nataly RICHMOND RN Phone: [phone] Pager: [phone] Plan of Care - Laney Atkins RN [...] from the original note were not included[place] [address] [address] INPATIENT CARDIOLOGY CONSULT NOTE Date of Consultation: 05/17/2022 Admit Date: 05/15/2022 Hospital Day 2 days Reason for Consult: New afib Active Problems: Active Hospital Problems Diagnosis Limb ischemia Resolved Hospital Problems No resolved problems to display. HPI: Koko Zamora is a 81 y.o. male with a PMHx significant for MVP (s/p MV repair 2000), tobacco use, HLD, who presented to [facility] from OSH on 05/15 with acute limb ischemia of LLE and was found to be in atrial fibrillation. Patient had sudden onset LLE pain on 05/15 and presented to [facility], where he was started on heparin and transferred to [facility]. Upon arrival to [facility], patient was in atrial fib with [facility] [...] MD [facility] INTERVENTIONL RAD IR VERTEBROPLASTY LUMBAR MULTIPLE LEVELS 07/20/2019 IR Vertebroplasty Lumbar Multiple Levels 07/20/2019 Bobby Marshall MD [facility] INTERVENTIONL RAD IR VERTEBROPLASTY THORACIC SINGLE LEVEL 10/25/2020 IR Vertebroplasty Thoracic Single Level 10/25/2020 Matt Chisholm MD [facility] INTERVENTIONL RAD PRO EMBLC/THRMBC FEMORAL POPLITEAL AORTO-ILIAC ARTERY Left 05/15/2022 EMBOLECTOMY OR THROMBECTOMY, FEMOROPOPLITEAL, AORTOILIAC ARTERY BY LEG INCISION (WRVU 19.48) performed by Fito Summers MD at [facility] MAIN OR Allergies Allergen Reactions Aspirin Other (See Comments) GI bleed Out-Patient Medications: Medications Prior to Admission Medication Sig Dispense Refill Last Dose fluorouraciL (EFUDEX) 5 % Cream daily. CRESTOR 40 mg Tablet Take 40 mg by mouth daily. fluticasone propionate (FLONASE) 50 mcg/actuation [place], Suspension as needed. ascorbic acid, vitamin C, [...] 5 mL Intravenous BID PHENobarbitaL 0.24 mg/kg/dose (Almyra) Oral BID Followed by [START ON 05/18/2022] PHENobarbitaL 0.12 mg/kg/dose (Almyra) Oral BID thiamine 100 mg Oral Daily folic acid 1,000 mcg Oral Daily multivitamin with minerals 1 tablet Oral Daily heparin (porcine) infusion 1,200 Units/hr (05/17/22 4174) Family History: No family history on file. [...] ED to Hosp-Admission (Current) from 05/15/[address] [place] [address] Office Visit from 04/17/2021 in Pain and Spine Center at [facility] Weight 79.8 kg (175 lb 14.8 oz) [...] continue to follow Anne-Marie Larson MD Pager [phone] Clinic: [phone] 05/17/22 6:22 PM Initial Assessments - Ifrah [...] spouse would be surrogate decision maker per [place] surrogate decision making law. (Only good for 180 days) Any patient receiving care at [facility] must abide by [place] law. The hierarchy for surrogate decision making [...] (i) The agent with financial power of swatcher or a conservator appointed in accordance with [...] raised toilet seat Home Address confirmed as: [facility] [facility] [address] Social & Family Supports: All names listed below confirmed with patient as Incorrect. Will notify conifer to correct. Wifes address is same as and phone is [phone]. Extended Emergency Contact Information Primary Emergency Contact: Demarco Zamorana Address: [facility] [place] [address] [facility] Relation: Spouse Current Care Provided [...] Type: *No Product type* / Secondary Insurance: [facility] Prescription Coverage: Yes Preferred Pharmacy: [id number] - [place], [place] - [address] [facility] [address] [place] [place] [place] [address] [id number] - [place], [place] - [address] [facility] [address] [facility] [address] [place] Status: Patient is a : unable to assess Primary Care Provider: Bobby Das MD [phone] Patient/Caregiver Goals of Treatment: to walk again Potential Needs for Transition of Care: none noted per 05/16 IDR Transportation: family will provide Transportation Anticipated: family or friend will provide Concerns to be Addressed: no discharge needs identified Assessment: Patient is admitted to vascular surg service for left lower extremity limb ischemia Plan: Per PT OT recommendations . Has used Biottery in the past. A member of the Care Management team will continue to monitor progress, follow for continuity of care and assist with transition of care planning. Ifrah Bell RN BSN Assembly Line Robot OperatorFlour Inspector of Care Management Pager [phone] Brief Op Note - Erin Garza MD - 05/15/2022 5:04 PM EDT Brief Operative Note Patient Name: Koko Zamora : [id number] MR#: [id number] Case Date: 05/15/2022 Surgeon: Surgeon(s) and Role: [...] Garza MD - 05/15/2022 2:08 PM EDT [facility] Operative Note Patient Name: Koko Zamora : [id number] MR#: [id number] Case Date: 05/15/2022 Surgeon: Surgeon(s) and Role: [...] [facility] GASTROENTEROLOGY DEPT [place], [place] [address] (Wo rk) 09/05/2022 Appointment Cardiology Trinity Reid MD [facility] CARDIOLOGY [place], [place] [address] (Wo rk) 09/05/2022 Office Visit Cardiology Trinity Reid MD [facility] CARDIOLOGY [place], [place] [address] (Wo rk) Scheduled Referrals Name [...] Component Value Ref Test Analysis Performed At [facility] Range Method Time Signature VB Text Department: Vascular Surgery Lab VASCUBASE Report Patient: [id number] (KOKO ZAMORA) CPT: 33081 Referring Physician: FITO SUMMERS ?? Phone: Indications: s/p L ACUTE CARE NURSING ASSISTANT endart. Diabetes mellitus: no Findings: Right ?Pressure [...] EDT) athologist Signature Heparin UFH 0.42 IU/mL [facility] LABORATORY Comment: Heparin (anti-Xa) levels [...] Organization Address City/State/[place] [address] Differential, Automated (05/21/2022 6:15 AM EDT) athologist Signature Neutrophils % 58.8 % [facility] LABORATORY Neutr Abs (ANC) 3.97 1.70 - [facility] 6.10 [facility] x10(3)[facility] LABORATORY Lymphocytes % 25.2 % [facility] LABORATORY Lymphocytes Abs 1.7 0.9 - 3.[address] [facility] x10(3)/[facility] LABORATORY Monocytes % 12.9 % [facility] LABORATORY Monocyte Abs 0.9 0.3 - 0.[address] [facility] x10(3)[facility] LABORATORY Eosinophils % 2.1 % [facility] LABORATORY Eosinophils Abs 0.1 0.0 - 0.[address] [facility] x10(3)/[facility] LABORATORY Basophils % 0.4 % [facility] LABORATORY Basophils Abs 0.0 0.0 - 0.[address] [facility] x10(3)/[facility] LABORATORY Immature Gran % 0.60 % [facility] [...] Rain Gran Abs 0.04 0.00 - 0.04 x10(3)/[facility] LABORATORY Specimen Anatomical Collection Method Collection Time Receive d Time (Source) Location / / Volume Laterality Blood 05/21/2022 6:15 AM 2 6:38 EDT AM EDT Resulting Agency Comment Spec In Lab Edward Rodríguez MD HEMATOLOGY ORDERABLES Performing Organization Address City/State/[place] [address] (ABNORMAL) Hemogram (05/21/2022 6:15 AM EDT) [facility] gist Method Time Signature WBC 6.8 4.0 - 9.5 [facility] x[facility](3[facility] LABORATORY RBC 3.59 (L) 4.58 - [place] [facility] 5.54 [facility] x10(6)/[facility] LABORATORY Hemoglobin 11.8 (L) 13.7 - [facility] 16.5 g/dL [facility] LABORATORY Hematocrit 34.5 (L) 40.5 - [facility] 48.5 % [facility] LABORATORY MCV 96.1 (H) 82.9 - [facility] XIAO 93.1 [facility] LABORATORY MCH 32.9 (H) 27.5 - [place] [facility] 32.1 pg [facility] LABORATORY MCHC 34.2 32.0 - [place] 35.7 g/dL [facility] LABORATORY Platelets 198 145 - [address] [facility] x10(3)/[facility] LABORATORY RDWSD 44.9 36.0 - [facility] 45.0 [facility] LABORATORY RDWCV 12.6 11.4 - [facility] XIAO 13.8 % [facility] LABORATORY MPV 10.0 7.6 - 12.9 [facility] nRBC % Auto 0.3 % [facility] LABORATORY nRBC Abs Auto 0.020 (H) 0.000 - [place] [facility] 0.000 [facility] x10(3)/[facility] LABORATORY Specimen Anatomical Collection Method Collection Time Receive d Time (Source) Location / / Volume Laterality Blood 05/21/2022 6:15 AM 2 6:38 EDT AM EDT Resulting Agency Comment Spec In Lab Edward Rodríguez MD HEMATOLOGY ORDERABLES Performing Organization Address City/State/[place] [address] EKG 12 Lead (05/20/2022 7:04 PM EDT) Component Value Ref Range Test Analysis Performed Pathologis t Method Time At Signature Ventricular rate 101 BPM MUSE SYSTEM QRS Duration 116 ms MUSE SYSTEM Q-T Interval 378 ms MUSE SYSTEM QTC Calculated 490 ms MUSE SYSTEM (Bezet) Calculated R [place] -53 degrees MUSE SYSTEM Calculated T [place] 101 degrees MUSE SYSTEM INTERPRETATION Atrial fibrillation [...] SYSTEM CARDIAC CATHETERIZATION (05/20/2022 6:45 PM EDT) Anatomical Region Laterality Modality Other Specimen (Source) Anatomical Location Collection Method / Collectio n Time Received Time / Laterality Volume Narrative 05/20/2022 7:09 PM EDT ?[facility] ? Cardiac Cathete rization/Intervention Report ? Patient Name: Koko Zamora ? Procedure Date: 05/20/2022 ? A #: [id number] ? Primary Physician: Abundio Servin ? Case #: [id number] ? File Name: [id number] ? Catheterization Order Number: [id number] ? [facility] ? Final Report [place], [place] ? Patient Name: ? Koko J. Klarissa uson ? ID#: ?[id number] ? : ?1940 ? Procedure Date: ? [...] enrique gnated as ASA Class IV. The [facility] clinical ?frailty scale is 3: Managing We [...] procedure was Urgent. The indication for ?the offset label rewinder visit is cardiomyo nita. Chest pain symptom [...] ?3.5 guiding catheter and a 3.5 Fr [place] [facility] [address] ??20 Mhz. ??Imaging ?was successful. ??Image [...] premounted 2. 75 x 30 mm Rudy Oley (AMPARO) was deployed ? with a maximum [...] may require ?modification of this regimen. C [facility] for ?questions. ?The 1 [...] ORDERABLES POCT Glucose (05/20/2022 5:42 PM EDT) athologist Signature POC Glucose 123 65 - 199 [place] [facility] mg/dL [facility] LABORATORY Comment: Supplemental ranges: <140 mg/dL before meals <180 mg/dL all other times of the day Specimen Anatomical Collection Method Collection Time Receive d Time (Source) Location / / Volume Laterality Blood 05/20/2022 5:42 PM 2 5:42 EDT PM EDT Fito Summers MD POINT OF CARE TEST ORDERABLE S Performing Organization Address City/State/[place] [address] (ABNORMAL) BMP w/fasting Glucose (05/20/2022 10:50 AM EDT) athologist Signature Glucose 152 (H) 65 - 99 [facility] XIAO Fasting mg/dL [facility] LABORATORY [...] of Diabetes Mellitus, Position Statement from the [place] [employer]. ??Diabete s Care, Volume 33, [...] Organization Address City/State/[place] [address] Heparin (unfractionated) Level (05/20/2022 5:02 AM EDT) P athologist Signature Heparin UFH 0.57 IU/mL [facility] LABORATORY Comment: Heparin (anti-Xa) levels [...] Organization Address City/State/ZIP Code Phon e Number [place] [phone] HOSPITAL LABORATORY Drive (ABNORMAL) Differential, Automated (05/20/2022 5:02 AM EDT) [facility] Method Time Signature Neutrophils % 58.1 % [facility] LABORATORY Neutr Abs (ANC) 4.52 1.70 - [facility] 6.10 [facility] x10(3)/[facility] LABORATORY Lymphocytes % 24.1 % [facility] LABORATORY Lymphocytes Abs 1.9 0.9 - 3.[address] [facility] x10(3)/[facility] LABORATORY Monocytes % 13.8 % [facility] LABORATORY Monocyte Abs 1.1 (H) 0.3 - 0.[address] [facility] x10(3)/[facility] LABORATORY Eosinophils % 2.6 % [facility] LABORATORY Eosinophils Abs 0.2 0.0 - 0.[address] [facility] x10(3)/[facility] LABORATORY Basophils % 0.8 % [facility] LABORATORY Basophils Abs 0.1 0.0 - 0.[address] [facility] x10(3)/[facility] LABORATORY Immature Gran % 0.60 % [facility]AL [...] Abs 0.05 (H) 0.00 - 0.04 x10(3)/[facility] LABORATORY Specimen Anatomical Collection Method Collection Time Receive d Time (Source) Location / / Volume Laterality Blood 05/20/2022 5:02 AM 5:19 EDT AM EDT Resulting Agency Comment Spec In Lab Edward Rodríguez MD HEMATOLOGY ORDERABLES Performing Organization Address City/State/[place] [address] (ABNORMAL) Hemogram (05/20/2022 5:02 AM EDT) Analysis Performed At Patho logist Time Signature WBC 7.8 4.0 - 9.[address] [facility] x10(3)/[facility] LABORATORY RBC 3.53 (L) 4.58 - [facility] 5.54 [facility] x10(6)/[facility] LABORATORY Hemoglobin 11.4 (L) 13.7 - [facility] 16.5 g/dL [facility] LABORATORY Hematocrit 34.3 (L) 40.5 - [facility] 48.5 % [facility] LABORATORY MCV 97.2 (H) 82.9 - [facility] 93.1 [facility] LABORATORY MCH 32.3 (H) 27.5 - [facility] 32.1 pg [facility] LABORATORY MCHC 33.2 32.0 - [facility] 35.7 g/dL [facility] LABORATORY Platelets 181 145 - [address] [facility] [address] [facility] x10(3)/[facility] LABORATORY RDWSD 46.4 (H) 36.0 - [facility] 45.0 [facility] LABORATORY RDWCV 13.0 11.4 - [facility] XIAO 13.8 % [facility] LABORATORY MPV 10.4 7.6 - 12.9 [facility] LABORATORY nRBC % Auto 0.0 % [facility] LABORATORY nRBC Abs Auto 0.000 0.000 - [facility] 0.000 [facility] x10(3)/[facility] LABORATORY Specimen Anatomical Collection Method Collection Time Receive d Time (Source) Location / / Volume Laterality Blood 05/20/2022 5:02 AM 2 5:19 EDT AM EDT Resulting Agency Comment Spec In Lab Edward Rodríguez MD HEMATOLOGY ORDERABLES Performing Organization Address City/[facility]/ZIP Code Phon e Number [place] [phone] HOSPITAL LABORATORY Drive Heparin (unfractionated) Level (05/19/2022 3:26 AM EDT) P athologist Signature Heparin UFH 0.59 IU/mL [facility] LABORATORY Comment: Heparin (anti-Xa) levels [...] Summers MD HEMATOLOGY ORDERABLES Performing Organization Address City/[facility]/[place] [address] (ABNORMAL) Differential, Automated (05/19/2022 3:26 AM EDT) Patholo gist Method Time Signature Neutrophils % 62.1 % [facility] LABORATORY Neutr Abs (ANC) 4.59 1.70 - [facility] 6.10 [facility] x10(3)/[facility] LABORATORY Lymphocytes % 22.1 % [facility] LABORATORY Lymphocytes Abs 1.6 0.9 - 3.[address] [facility] x10(3)/[facility] LABORATORY Monocytes % 13.5 % [facility] LABORATORY Monocyte Abs 1.0 (H) 0.3 - 0.[address] [facility] x10(3)/[facility] LABORATORY Eosinophils % 1.3 % [facility] LABORATORY Eosinophils Abs 0.1 0.0 - 0.[address] [facility] x10(3)/[facility] LABORATORY Basophils % 0.5 % [facility] LABORATORY Basophils Abs 0.0 0.0 - 0.[address] [facility] x10(3)/[facility] LABORATORY Immature Gran % 0.50 % [facility] [...] Rain Gran Abs 0.04 0.00 - 0.04 x10(3)/[facility] LABORATORY Specimen Anatomical Collection Method Collection Time Receive d Time (Source) Location / / Volume Laterality Blood 05/19/2022 3:26 AM 2 3:59 EDT AM EDT Resulting Agency Comment Spec In Lab Edward Rodríguez MD HEMATOLOGY ORDERABLES Performing Organization Address City/State/[place] [address] (ABNORMAL) Hemogram (05/19/2022 3:26 AM EDT) Analysis Performed At Patho logist Time Signature WBC 7.4 4.0 - 9.[address] [facility] x10(3)/[facility] LABORATORY RBC 3.74 (L) 4.58 - [facility] 5.54 [facility] x10(6)/[facility] LABORATORY Hemoglobin 12.1 (L) 13.7 - [facility] 16.5 g/dL [facility] LABORATORY Hematocrit 36.4 (L) 40.5 - [facility] 48.5 % [facility] LABORATORY MCV 97.3 (H) 82.9 - [facility] 93[facility]1 [facility] LABORATORY MCH 32.4 (H) 27.5 - [place] 32.1 pg [facility] LABORATORY MCHC 33.2 32.0 - [place] [place] 35.7 g/dL [facility] LABORATORY Platelets 168 145 - 357 [place] x10(3)/[facility] LABORATORY RDWSD 46.9 (H) 36.0 - [place] 45.0 [facility] LABORATORY RDWCV 13.0 11.4 - [place] [facility] 13.8 % [facility] LABORATORY MPV 10.5 7.6 - 12.9 [facility] nRBC % Auto 0.0 % [facility] LABORATORY nRBC Abs Auto 0.000 0.000 - [place] [facility] 0.000 [facility] x10(3)/[facility] LABORATORY Specimen Anatomical Collection Method Collection Time Receive d Time (Source) Location / / Volume Laterality Blood 05/19/2022 3:26 AM 2 3:59 EDT AM EDT Resulting Agency Comment Spec In Lab Edward Rodríguez MD HEMATOLOGY ORDERABLES Performing Organization Address City/[facility]/[place] [address] TSH (05/18/2022 8:00 PM EDT) P athologist Signature TSH 2.27 0.27 - 4.20 [facility] mcIU/mL [facility] LABORATORY Comment: Reference Interval (mcIU/mL): Females: ??First Trimester: 0.23-3.88 ??Second Trimester: 0.22-3.90 ??Third Trimester: 0.44-4.66 Specimen Anatomical Collection Method Collection Time Receive d Time (Source) Location / / Volume Laterality Blood 05/18/2022 8:00 PM 2 8:06 EDT PM EDT Resulting Agency Comment Spec In Lab Fito Summers MD CHEMISTRY ORDERABLES Performing Organization Address City/[facility]/ZIP [facility] [place] [address] (ABNORMAL) Differential, Automated (05/18/2022 3:34 AM EDT) [facility] Signature Neutrophils % 67.2 % [facility] LABORATORY Neutr Abs (ANC) 5.89 1.70 - [facility] 6.10 [facility] x10(3)/[facility] LABORATORY Lymphocytes % 17.1 % [facility] LABORATORY Lymphocytes Abs 1.5 0.9 - 3.[address] [facility] x10(3)/[facility] LABORATORY Monocytes % 13.6 % [facility] LABORATORY Monocyte Abs 1.2 (H) 0.3 - 0.[address] [facility] x10(3)/[facility] LABORATORY Eosinophils % 1.0 % [facility] LABORATORY Eosinophils Abs 0.1 0.0 - 0.[address] [facility] x10(3)/[facility] LABORATORY Basophils % 0.6 % [facility] LABORATORY Basophils Abs 0.0 0.0 - 0.[address] [facility] x10(3)/[facility] LABORATORY Immature Gran % 0.50 % [facility] [...] Rain Gran Abs 0.04 0.00 - 0.04 x10(3)/[facility] LABORATORY Specimen Anatomical Collection Method Collection Time Receive d Time (Source) Location / / Volume Laterality Blood 05/18/2022 3:34 AM 3:48 EDT AM EDT Resulting Agency Comment Spec In Lab Edward Rodríguez MD HEMATOLOGY ORDERABLES Performing Organization Address City/State/[place] [address] (ABNORMAL) Hemogram (05/18/2022 3:34 AM EDT) Analysis Performed At [facility] logist Time Signature WBC 8.8 4.0 - 9.[address] [facility] x10(3)/[facility] LABORATORY RBC 3.45 (L) 4.58 - [place] [facility] 5.54 [facility] x10(6)/[facility] LABORATORY Hemoglobin 11.2 (L) 13.7 - [facility] 16.5 g/dL [facility] LABORATORY Hematocrit 33.0 (L) 40.5 - [place] [facility] 48.5 % [facility] LABORATORY MCV 95.7 (H) 82.9 - [facility] 93.1 [facility] LABORATORY MCH 32.5 (H) 27.5 - [facility] 32.1 pg [facility] LABORATORY MCHC 33.9 32.0 - [facility] 35.7 g/dL [facility] LABORATORY Platelets 130 (L) 145 - [address] [facility] x10(3)/[facility] LABORATORY RDWSD 46.2 (H) 36.0 - [facility] 45.0 [facility] LABORATORY RDWCV 13.2 11.4 - [facility] 13.8 % [facility] LABORATORY MPV 10.8 7.6 - 12.9 [facility] LABORATORY nRBC % Auto 0.0 % [facility] LABORATORY nRBC Abs Auto 0.000 0.000 - [facility] 0.000 [facility] x10(3)/[facility] LABORATORY Specimen Anatomical Collection Method Collection Time Receive d Time (Source) Location / / Volume Laterality Blood 05/18/2022 3:34 AM 3:48 EDT AM EDT Resulting Agency Comment Spec In Lab Edward Rodríguez MD HEMATOLOGY ORDERABLES Performing Organization Address City/State/[place] [address] Heparin (unfractionated) Level (05/18/2022 3:34 AM EDT) P athologist Signature Heparin UFH 0.59 IU/mL [facility] LABORATORY Comment: Heparin (anti-Xa) levels [...] Summers MD HEMATOLOGY ORDERABLES Performing Organization Address City/[facility]/ZIP Code Phon e Number [address] Magnesium (05/17/2022 3:33 AM EDT) athologist Signature Magnesium 0.76 0.69 - 1.[address] [facility] mmol/L [facility] LABORATORY Specimen Anatomical Collection Method Collection Time Receive d Time (Source) Location / / Volume Laterality Blood Venous Draw / 05/17/2022 3:33 AM 05/17/20 22 4:05 Unknown EDT AM EDT Resulting Agency Comment Spec In Lab Dottie Hill APRN CHEMISTRY ORDERABLES Performing Organization Address City/[facility]/[place] [address] (ABNORMAL) Basic Metabolic Panel (non-fasting) (05/17/2022 3:33 AM EDT) athologist Signature Glucose Lvl 158 65 - [address] [facility] [address] mg/dL [facility] LABORATORY Comment: [...] Organization Address City/State/[place] [address] (ABNORMAL) Differential, Automated (05/17/2022 3:33 AM EDT) [facility] gist Method Time Signature Neutrophils % 65.5 % [facility] LABORATORY Neutr Abs (ANC) 6.84 (H) 1.70 - [facility] 6.10 [facility] x10(3)/[facility] LABORATORY Lymphocytes % 19.7 % [facility] LABORATORY Lymphocytes Abs 2.1 0.9 - 3.[address] [facility] x10(3)/[facility] LABORATORY Monocytes % 13.1 % [facility] LABORATORY Monocyte Abs 1.4 (H) 0.3 - 0.[address] [facility] x10(3)/[facility] LABORATORY Eosinophils % 0.6 % [facility] LABORATORY Eosinophils Abs 0.1 0.0 - 0.[address] [facility] x10(3)/[facility] LABORATORY Basophils % 0.6 % [facility] LABORATORY Basophils Abs 0.1 0.0 - 0.[address] [facility] x10(3)/[facility] LABORATORY Immature Gran % 0.50 % [facility]ENTRAL [...] Abs 0.05 (H) 0.00 - 0.04 x10(3)/[facility] LABORATORY Specimen Anatomical Collection Method Collection Time Receive d Time (Source) Location / / Volume Laterality Blood 05/17/2022 3:33 AM 3:53 EDT AM EDT Resulting Agency Comment Spec In Lab Edward Rodríguez MD HEMATOLOGY ORDERABLES Performing Organization Address City/State/[place] [address] (ABNORMAL) Hemogram (05/17/2022 3:33 AM EDT) Analysis Performed At Patho logist Time Signature WBC 10.4 (H) 4.0 - 9.[address] [facility] x10(3)/[facility] LABORATORY RBC 3.72 (L) 4.58 - [facility] 5.54 [facility] x10(6)/[facility] LABORATORY Hemoglobin 12.0 (L) 13.7 - [facility] 16.5 g/dL [facility] LABORATORY Hematocrit 36.4 (L) 40.5 - [facility] 48.5 % [facility] LABORATORY MCV 97.8 (H) 82.9 - [facility] fL [facility] LABORATORY MCH 32.3 (H) 27.5 - [place] [place] 32.1 pg [facility] LABORATORY MCHC 33.0 32.0 - [place] [place] 35.7 g/dL [facility] LABORATORY Platelets 149 145 - [address] [facility] x10(3)/[facility] LABORATORY RDWSD 48.7 (H) 36.0 - [facility] XIAO 45.0 [facility] LABORATORY RDWCV 13.5 11.4 - [facility] 13.8 % [facility] LABORATORY MPV 10.6 7.6 - 12.9 [facility] LABORATORY nRBC % Auto 0.0 % [facility] LABORATORY nRBC Abs Auto 0.000 0.000 - [facility] 0.000 [facility] x10(3)/[facility] LABORATORY Specimen Anatomical Collection Method Collection Time Receive d Time (Source) Location / / Volume Laterality Blood 05/17/2022 3:33 AM 3:53 EDT AM EDT Resulting Agency Comment Spec In Lab Edward Rodríguez MD HEMATOLOGY ORDERABLES Performing Organization Address City/State/[place] [address] (ABNORMAL) Urinalysis Microscopic Exam [...] Address City/State/ZIP Code Phon e Number [address] (ABNORMAL) Urinalysis with reflex Culture (05/16/2022 11:15 PM EDT) Patholo gist Method Time Signature Glucose UA Negative Negative [facility] mg/dL [facility] LABORATORY Protein UA Negative Negative [facility] mg/dL [facility] LABORATORY Bilirubin UA Negative Negative [facility] mg/dL [facility] LABORATORY Comment: Clinical correlation required for positi [...] CENTER LABORATORY Nitrite UA Negative Negative [facility] LABORATORY Leukocytes UA Negative Negative [facility] LABORATORY Appearance UA Clear Clear [facility] LABORATORY Spec [place] UA 1.021 1.005 - 1.030 [facility] LABORATORY Color UA Yellow Yellow [facility] LABORATORY Culture Reflexed No [facility] LABORATORY Specimen Anatomical Collection Method Collection Time Receive d Time (Source) Location / / Volume Laterality Clean Catch 05/16/2022 11:15 05/16/2022 Urine PM EDT 11:30 PM EDT Resulting Agency Comment Spec In Lab Fito Summers MD URINE ORDERABLES Performing Organization Address City/State/[place] [address] Heparin (unfractionated) Level (05/16/2022 10:59 PM EDT) P athologist Signature Heparin UFH 0.65 IU/mL [facility] LABORATORY Comment: Specimen drawn more [...] Organization Address City/State/[place] [address] XR Chest One View [...] questions please contact the health day care worker that requested your imaging first. ? Narrative [...] questions please contact the health day care worker that requested your imaging first. Electronically signed by: Tiffanie George MD , [facility] ([phone]), at 05/16/2022 9:27 PM Fito Summers MD IMG DX ORDERABLES EKG 12 Lead (05/16/2022 8:57 PM EDT) Component Value Ref Range Test Analysis Performed Pathologis t Method Time At Signature Ventricular rate 117 BPM MUSE SYSTEM QRS Duration 112 ms MUSE SYSTEM Q-T Interval 346 ms MUSE SYSTEM QTC Calculated 482 ms MUSE SYSTEM (Bezet) Calculated R [place] -48 degrees MUSE SYSTEM Calculated T [place] 111 degrees MUSE SYSTEM INTERPRETATION Atrial fibrillation with rapid ventricular response MUSE SYSTEM Left anterior fascicular block Minimal voltage criteria for LVH, may be normal variant ( [place] product ) Nonspecific ST and T wave [...] EDT) athologist Signature Heparin UFH 0.53 IU/mL [facility] LABORATORY Comment: Heparin (anti-Xa) levels [...] Organization Address City/State/[place] [address] ECHOCARDIOGRAM COMPLETE W CONTRAST (05/16/2022 12:49 PM EDT) athologist Signature EF 28 HEARTLAB SYSTEM Anatomical Region Laterality Modality Cardiac Other Specimen (Source) Anatomical Collection Method Collection Time Re ceived Time Location / / Volume Laterality 05/16/2022 11:22 AM EDT Narrative 05/16/2022 1:54 PM EDT ?[facility] ?[address] ? [place] [address] ?Voice: ?Fax: ? Echocardiogram Report Name: KOKO ZAMORA ?Study Date: 05/16/2022 11:22 AM ? Patient Location: 3T 0303 B : 1940 ? Height: 67.5 in ? Account: [id number] Age: 81 yrs ? Weight: 176 lb [...] and LV systolic dysfunction are new. Procedure [id number]. Image enhancement Optiso n was used for [...] diffuse Procedure Note Gladys Jaime MD - 05/16/2022Formgumei kenroy of this note might be different from the original. [address] [address] [place] [address] Voice: Fax: Echocardiogram Report Name: KOKO ZAMORA Study Date: 05/2022 11:22 AM Patient Location: [facility] 0 303 B : 1940 Height: 67.5 in Account: [id number] Age: 81 yrs Weight: 176 lb Gender: Male BSA: 1.9 m2 Ordering Physician: FITO SUMMERS Referring Physician: MALI FLORIAN Performed By: Jolene Bernard [facility] Exam Location: [facility]. Interpretation [...] and LV systolic dysfunction are new. Procedure Complete-[id number]. Image enhancement Optiso n was used for [...] diffuse Fito Summers MD ECHO ORDERABLES (ABNORMAL) Differential, Automated (05/16/2022 3:01 AM EDT) [facility] Method Time Signature Neutrophils % 78.8 % [facility] LABORATORY Neutr Abs (ANC) 9.11 (H) 1.70 - [facility] 6.10 [facility] x10(3)/[facility] LABORATORY Lymphocytes % 9.4 % [facility] LABORATORY Lymphocytes Abs 1.1 0.9 - 3.[address] [facility] x10(3)/[facility] LABORATORY Monocytes % 10.9 % [facility] LABORATORY Monocyte Abs 1.3 (H) 0.3 - 0.[address] [facility] x10(3)/[facility] LABORATORY Eosinophils % 0.0 % [facility] LABORATORY Eosinophils Abs 0.0 0.0 - 0.[address] [facility] x10(3)/[facility] LABORATORY Basophils % 0.3 % [facility] LABORATORY Basophils Abs 0.0 0.0 - 0.[address] [facility] x10(3)/[facility] LABORATORY Immature Gran % 0.60 % [facility] [...] Abs 0.07 (H) 0.00 - 0.04 x10(3)/[facility] LABORATORY Specimen Anatomical Collection Method Collection Time Receive d Time (Source) Location / / Volume Laterality Blood 05/16/2022 3:01 AM 3:36 EDT AM EDT Resulting Agency Comment Spec In Lab Erin Garza MD HEMATOLOGY ORDERABLES Performing Organization Address City/State/[place] [address] (ABNORMAL) Hemogram (05/16/2022 3:01 AM EDT) Analysis Performed At Patho logist Time Signature WBC 11.6 (H) 4.0 - 9.[address] [facility] x10(3)/[facility] LABORATORY RBC 3.62 (L) 4.58 - [facility] 5.54 [facility] x10(6)/[facility] LABORATORY Hemoglobin 12.0 (L) 13.7 - [facility] 16.5 g/dL [facility] LABORATORY Hematocrit 35.3 (L) 40.5 [facility] % [facility] LAB[facility]AT[facility] MCV 97.5 (H) 82.9 - [facility] 93.1 [facility] LABORATORY MCH 33.1 (H) 27.5 - [facility] 32.1 pg [facility] LABORATORY MCHC 34.0 32.0 - [facility] 35.7 g/dL [facility] LABORATORY Platelets 151 145 - [address] [facility] x10(3)/[facility] LABORATORY RDWSD 47.6 (H) 36.0 - [facility] 45.0 [facility] LABORATORY RDWCV 13.3 11.4 - [facility] 13.8 % [facility] LABORATORY MPV 10.5 7.6 - 12.9 [facility] LABORATORY nRBC % Auto 0.0 % [facility] LABORATORY nRBC Abs Auto 0.000 0.000 - [facility] 0.000 [facility] x10(3)/[facility] LABORATORY Specimen Anatomical Collection Method Collection Time Receive d Time (Source) Location / / Volume Laterality Blood 05/16/2022 3:01 AM 2 3:36 EDT AM EDT Resulting Agency Comment Spec In Lab Erin Garza MD HEMATOLOGY ORDERABLES Performing Organization Address City/[facility]/ZIP Code Phon e Number [address] Phosphorus (05/16/2022 3:01 AM EDT) P athologist Signature Phosphorus 3.7 2.5 - 4.5 [facility] mg/dL [facility] LABORATORY Specimen Anatomical Collection Method Collection Time Receive d Time (Source) Location / / Volume Laterality Blood 05/16/2022 3:01 AM 2 3:36 EDT AM EDT Resulting Agency Comment Spec In Lab Fito Summers MD CHEMISTRY ORDERABLES Performing Organization Address City/[facility]/ZIP Code Phon e Number [address] Magnesium (05/16/2022 3:01 AM EDT) P athologist Signature Magnesium 0.77 0.69 - 1.07 [facility] mmol/L [facility] LABORATORY Specimen Anatomical Collection Method Collection Time Receive d Time (Source) Location / / Volume Laterality Blood 05/16/2022 3:01 AM 2 3:36 EDT AM EDT Resulting Agency Comment Spec In Lab Fito Summers MD CHEMISTRY ORDERABLES Performing Organization Address City/[facility]/ZIP [facility] [place] [address] (ABNORMAL) Basic Metabolic Panel (non-fasting) (05/16/2022 3:01 AM EDT) P athologist Signature Glucose Lvl 222 (H) 65 - 199 [facility] mg/dL [facility] LABORATORY Comment: Diabetes: >=200 mg/dL plus symp toms BUN 12 10 - 20 mg/dL [facility] LABORATORY Creatinine 0.66 (L) 0.80 [...] Organization Address City/State/[place] [address] (ABNORMAL) BLOOD GAS 2 ARTERIAL (05/15/2022 3:33 PM EDT) Analysis Performed At Patho logist Time Signature pH Art 7.33 (L) 7.35 - [facility] 7.45 [facility] LABORATORY pCO2 Art 41 35 - 45 [facility] acute hospital LABORATORY pO2 Art 131 (H) 85 - [address] [facility] mmHg [facility] LABORATORY HCO3 Art 21.1 20.0 - [facility] 26.0 [facility] mmol/L [facility] LABORATORY BE Art -4.8 (L) -3.0 - 3.[address] [facility] mmol/L [facility] LABORATORY Hgb Blood Gas 13.4 (L) 13.7 - [facility] 16.5 g/dL [facility] O2HB Art 96.9 94.[address] - [facility] 97.0 % [facility] LABORATORY COHB Art 1.4 % [facility] [...] Whole Bld 136 65 - 199 mg/dL [facility] LABORATORY Comment: Diabetes: >=200 mg/dL plus symp toms. Lactate WB 2.0 0.5 - 2.2 mmol/L [facility] LABORATORY Specimen Anatomical Collection Method Collection Time Receive d Time (Source) Location / / Volume Laterality Blood 05/15/2022 3:33 PM 2 3:[address] Jamel Torre MD CHEMISTRY ORDERABLES Performing Organization Address City/State/[place] [address] (ABNORMAL) BLOOD GAS 2 ARTERIAL (05/15/2022 2:06 PM EDT) Analysis Performed At Patho logist Time Signature pH Art 7.39 7.35 - [facility] 7.45 [facility] LABORATORY pCO2 Art 35 35 - 45 [facility] acute hospital LABORATORY pO2 Art 135 (H) 85 - 104 [facility] LABORATORY HCO3 Art 20.8 20.[address] [facility] 26.0 [facility] mmol/L [facility] LABORATORY BE Art -4.2 (L) -3.0 - 3.[address] [facility] mmol/L [facility] LABORATORY Hgb Blood Gas 14.5 13.7 - [facility] 16.5 g/dL [facility] O2HB Art 97.2 (H) 94.0 - [facility] 97.0 % [facility] COHB Art 1.2 % [facility] [...] Whole Bld 152 65 - 199 mg/dL [facility] LABORATORY Comment: Diabetes: >=200 mg/dL plus symp toms. Lactate WB 1.5 0.5 - 2.2 mmol/L [facility] LABORATORY Specimen Anatomical Collection Method Collection Time Receive d Time (Source) Location / / Volume Laterality Blood 05/15/2022 2:06 PM 2 2:[address] Jamel Torre MD CHEMISTRY ORDERABLES Performing Organization Address City/State/[place] [address] (ABNORMAL) Prothrombin Time (05/15/2022 12:30 PM EDT) athologist Signature PT 12.9 (H) 9.4 - 12.5 [facility] LABORATORY INR 1.1 [facility] [...] Morales DO HEMATOLOGY ORDERABLES Performing Organization Address City/[facility]/[place] [address] (ABNORMAL) APTT (05/15/2022 12:30 [...] EDT Resulting Agency Comment Spec In Lab Jhonnykristopher Morales DO HEMATOLOGY ORDERABLES Performing Organization Address City/[facility]/[place] [address] Gold Tube HOLD (05/15/2022 12:20 PM EDT) athologist Signature Gold Hold Sample in [facility] XIAO lab. [facility] LABORATORY Specimen Anatomical Collection Method Collection Time Receive d Time (Source) Location / / Volume Laterality Blood No Charge / 05/15/2022 12:20 05/15/2022 Unknown PM EDT 12:20 PM EDT Lc Harris JOSEE CHEMISTRY ORDERABLES Performing Organization Address City/State/[place] [address] Type and Screen Validity (05/15/2022 12:00 PM EDT) [facility] Method Time Signature T&S only valid [facility] at [facility] LABORATORY Comment: This Type and Screen result is only valid at the [facility] Specimen Anatomical Collection Method Collection Time Receive d Time (Source) Location / / Volume Laterality Blood 05/15/2022 12:00 05/15/2022 PM EDT 12:17 PM EDT Resulting Agency Comment Spec In Lab Lc Harris PA BLOOD BANK ORDERABLES Performing Organization Address City/State/ZIP Code Phon e Number [address] ABORH Recheck Status (05/15/2022 12:00 PM EDT) [facility] Method Time Signature ABORH Recheck Order Placed [facility] K Order [facility] LABORATORY ABORH Type Complete [facility] LABORATORY Specimen Anatomical Collection Method Collection Time Receive d Time (Source) Location / / Volume Laterality Blood 05/15/2022 12:00 05/15/2022 PM EDT 12:17 PM EDT Resulting Agency Comment Spec In Lab Lc Harris PA BLOOD BANK ORDERABLES Performing Organization Address City/State/[place] [address] CK (05/15/2022 12:00 PM EDT) athologist Signature CK, Total 87 0 - [address] [facility] unit/L [facility] LABORATORY Specimen Anatomical Collection Method Collection Time Receive d Time (Source) Location / / Volume Laterality Blood Venous Draw / 05/15/2022 12:00 05/15/2022 Unknown PM EDT 12:19 PM EDT Resulting Agency Comment Spec In Lab Fito Summers MD CHEMISTRY ORDERABLES Performing Organization Address City/[facility]/[place] [address] Antibody screen (05/15/2022 12:00 PM EDT) [facility] Method Time Signature Ab Screen Negative [facility] LABORATORY Expires at 05/18/[address] [facility] [id number] on: [facility] LABORATORY Specimen Anatomical Collection Method Collection Time Receive d Time (Source) Location / / Volume Laterality Blood 05/15/2022 12:00 05/15/2022 PM EDT 12:17 PM EDT Resulting Agency Comment Spec In Lab Lc TRIPP BLOOD BANK ORDERABLES Performing Organization Address City/[facility]/[place] [address] ABO/Rh Typing (05/15/2022 12:00 PM EDT) P athologist Signature ABORh Type O Pos [facility] LABORATORY Specimen Anatomical Collection Method Collection Time Receive d Time (Source) Location / / Volume Laterality Blood 05/15/2022 12:00 05/15/2022 PM EDT 12:17 PM EDT Resulting Agency Comment Spec In Lab Lc TRIPP BLOOD BANK ORDERABLES Performing Organization Address City/[facility]/[place] [address] (ABNORMAL) Differential, Automated (05/15/2022 12:00 PM EDT) [facility] Method Time Signature Neutrophils % 79.4 % [facility] LABORATORY Neutr Abs (ANC) 7.49 (H) 1.70 - [facility] 6.10 [facility] x10(3)/[facility] LABORATORY Lymphocytes % 11.3 % [facility] LABORATORY Lymphocytes Abs 1.1 0.9 - 3.[address] [facility] x10(3)/[facility] LABORATORY Monocytes % 7.8 % [facility] LABORATORY Monocyte Abs 0.7 0.3 - 0.[address] [facility] x10(3)/[facility] LABORATORY Eosinophils % 0.6 % [facility] LABORATORY Eosinophils Abs 0.1 0.0 - 0.[address] [facility] x10(3)/[facility] LABORATORY Basophils % 0.6 % [facility] LABORATORY Basophils Abs 0.1 0.0 - 0.[address] [facility] x10(3)/[facility] LABORATORY Immature Gran % 0.30 % [facility] [...] Rain Gran Abs 0.03 0.00 - 0.04 x10(3)/[facility] LABORATORY Specimen Anatomical Collection Method Collection Time Receive d Time (Source) Location / / Volume Laterality Blood 05/15/2022 12:00 05/15/2022 PM EDT 12:19 PM EDT Resulting Agency Comment Spec In Lab Lc TRIPP HEMATOLOGY ORDERABLES Performing Organization Address City/State/[place] [address] (ABNORMAL) Hemogram (05/15/2022 12:00 PM EDT) Analysis Performed At Patho logist Time Signature WBC 9.4 4.0 - 9.[address] [facility] x10(3)/[facility] LABORATORY RBC 4.48 (L) 4.58 - [facility] 5.54 [facility] x10(6)/[facility] LABORATORY Hemoglobin 14.5 13.7 - [facility] g/dL [facility] LABORATORY Hematocrit 42.4 40.5 - [facility] 48.5 % [facility] LABORATORY MCV 94.6 (H) 82.9 - [facility] 93.1 fL [facility] LABORATORY MCH 32.4 (H) 27.5 - [facility] 32.1 pg [facility] LABORATORY MCHC 34.2 32.0 - [facility] 35.7 g/dL [facility] LABORATORY Platelets 209 145 - [address] [facility] x10(3)/[facility] LABORATORY RDWSD 45.9 (H) 36.0 - [facility] 45.0 [facility] LABORATORY RDWCV 13.1 11.4 - [facility] 13.8 % [facility] LABORATORY MPV 10.5 7.6 - 12.9 [facility] LABORATORY nRBC % Auto 0.0 % [facility] LABORATORY nRBC Abs Auto 0.000 0.000 - [facility] 0.000 [facility] x10(3)/[facility] LABORATORY Specimen Anatomical Collection Method Collection Time Receive d Time (Source) Location / / Volume Laterality Blood 05/15/2022 12:00 05/15/2022 PM EDT 12:19 PM EDT Resulting Agency Comment Spec In Lab Lc TRIPP HEMATOLOGY ORDERABLES Performing Organization Address City/State/[place] [address] (ABNORMAL) Basic Metabolic Panel (non-fasting) (05/15/2022 12:00 PM EDT) P athologist Signature Glucose Lvl 203 (H) 65 - [address] [facility] mg/dL [facility] LABORATORY Comment: [...] Organization Address City/State/[place] [address] documented in this encounter [...] Starting on Brandi 05/16/22 at 1606, Until 05/21/22 [...] CONTINUOUS, Starting on Fri05/15/22 at 2345, Until Fri05/16/22 at 0759, Routine heparin (porcine) 50 Rate/Dose [...] CONTINUOUS, Starting on Fri05/15/22 at 1815, Until Fri05/16/22 at 0014, Recovery (Recovery-Hospital Unit) lidocaine (Xylocaine) [...] Starting on Brandi 05/16/22 at 2125, Until [facility] [[email or web address]] 05/18/22 at 2248, Elevated Heart Rate, up [...] (2 times per day), First dose on [facility] [[email or web address]] 05/18/22 at 2100, Until Discontinued, Routine Given 05/20/2022 8:05 PM EDT 12.5 mg Given 05/20/2022 8:53 AM EDT 12.5 mg metoprolol tartrate (Lopressor) tablet 12.5 Given 05/10 11:36 AM EDT 12.5 mg mg 12.5 mg, Oral, EVERY 6 HOURS SCHEDULED, First dose (after last modification) on Fri05/21/22 at 1200, Until Discontinued, Routine multivitamin with minerals (Thera M) tablet Given 07/1 12/2021 8:16 AM EDT 1 tablet 1 tablet [...] Intravenous, ONCE PRN, 1 dose, Starting on Fri05/16/22 at 1249, Until Fri05/16/22 at 1115, for enhancement of sub-optimal echo images, Echo Lab (Intra-Procedure), Routine PHENobarbitaL (Luminal) (130 Given 05/16/2022 6:28 AM EDT 122.2 mg 11.3 mL/hr mg/mL) injection 122.2 mg 122.2 mg (rounded from 121.86 mg = 1.8 mg/kg/dose ? 67.7 kg Almyra weight), Intravenous, at 11.3 mL/hr, EVERY 3 [...] mg = 2.4 mg/kg/dose ? 67.7 kg Almyra weight), Intravenous, at 15 mL/hr, ONCE, 1 [...] mg = 0.24 mg/kg/dose ? 67.7 kg Almyra weight), Oral, 2 TIMES DAILY, 2 doses, [...] mg = 0.48 mg/kg/dose ? 67.7 kg Almyra weight), Oral, 2 TIMES DAILY, 2 doses, [...] mg = 0.12 mg/kg/dose ? 67.7 kg Almyra weight), Oral, 2 TIMES DAILY, 2 doses, First dose on [facility] [[email or web address]] 05/18/22 at 0900, Last dose on Fri05/18/22 at [...] 75 mg 0816 (Given - Provider: Etta Don RN) 75 mg, Oral, DAILY, First dose [...] Procedural area)1955 ([facility] Unhold - Provider: Admin Adt)2004 (Given - [...] 0852 (Given - Provider: Barbie Joyce RN)1750 ([facility] [...] Procedural area)1955 ([facility] Unhold - Provider: Admin Adt)2131 (Given - [...] 0.4 mg 0838 (Given - Provi bre: Carolien Zamora RN) 0853 (Given - Provider: Barbie [...] 0853 (Given - Provider: Barbie Joyce RN)175 ([facility] Hold - Provider: Admin Adt - Reason: Transfer to a Procedural area)1955 ([facility] Unhold - Provider: Admin Adt) 0816 (Given - Provider: Etta contreras RN) 100 mg, Oral, DAILY, First dose on Brandi at 0900, Until Discontinued, Routine valsartan (Diovan) tablet 40 mg 08 (Given - Provider : Caroline Zamora, DION)2008 (Given - Provider: Nuris Lester RN) 0853 (Given - Provider: Barbie Joyce RN)175 ([facility] Hold - Provider: Admin Adt - Reason: Transfer to a Procedural area)1955 ([facility] Unhold - Provider: Admin Adt)2005 (Given - [...] (New Bag - Provider: Barbie Joyce RN)175 ([facility] Hold - Provider: Admin Adt - Reason: Transfer to a Procedural area)1955 ([facility] Unhold - Provider: Admin Adt) 0219 (Restarted [...] (Dulcolax) suppository 10 mg 1 751 ([facility] Hold - Provider: Admin Adt - [...] base)/3 mL nebulizer solution 3 mL 175 ([facility] Hold - Provider: A korinin Adt - Reason: Transfer to a Procedural area)1955 ([facility] Unhold - Provider: Admin Adt) 3 mL, [...]
Routine documented in this encounter Care Teams Second Miller Relationship Specialty Start Date End Date Bobby Das MD PCP - General 10/02/[address] [place] [address] [place] [phone] documented as of this encounter
--- OUTSIDE RECORDS SUMMARY | 2022-07-12 09:40 | XMS_ITS | Encounter Summary ---
:1940 [place] [address] Care Team Providers Name Role Phone Bobby Das MD Primary Care Provider Reason for Visit Auth/Cert Specialty Diagnoses / Procedures Referred By Contact Refer red To Contact Diagnoses Limb ischemia LLE thrombus Fito Summers MD [facility] [place] [address] Referral ID Status Reason Start Date Expiration Date Visits Requ ested Visits Authorized [id number] 1 1 Encounter Details Date Type Department Care Team Description 05/15/2022 Anesthesia Event Main Operating Room Cari Briggs MD [facility] [place] [address] [facility] Duong Aguillon CRNA [facility] [place] [address] [place] [address] Anesthesia Record Procedure Summary Procedure Name [...] Amb ros, Andrea L, DION fossa), left; advk-gwf-[id number] catheter system; 18 gauge; OSH; site care per policy/procedure, site symptomatic, removed per policy/procedure, catheter/device intact; 05/16/22; 1117 PIV 05/15/22; 1204; median 05/15/22 1204 by 05/16/22 0738 by cubital vein (antecubital Marcia Dimas RN Gon zalez, Adriana, fossa), right; RN pxrf-chb-ovcplp catheter system; 18 gauge; OSH; 05/16/22; 0738 [...] Procedure Summary Date: 05/15/22 Room / Location: [facility] OR [address] [place] [address] MAIN OR Anesthesia Start: 1320 Anesthesia Stop: 1633 Procedure: EMBOLECTOMY OR THROMBECTOMY, FEMOROPOPLITEAL, AORTOILIAC ARTERY [facility] INC[facility] (Left ) Diagnosis: (Acute Limb Ischemia) Surgeons: Fito Summers MD Responsible Provider: Cari Ventura MD Anesthesia Type: general ASA Status: 3 - Emergent All Anesthesia Providers: Anesthesiologist: Cari Ventura MD REAL ESTATE ADMINISTRATIVE ASSISTANT: Torres Aguilar CRNA Vitals Value Taken Time BP 108/69 05/15/22 1715 Temp 36.3 ??C (97.3 ??F) 05/15/22 1633 Pulse 110 05/15/22 1719 Resp 16 05/15/22 1719 SpO2 89 % 05/15/22 1719 Pain Level Vitals shown include unvalidated device data. Patient Location: PACU/[facility] Level of Consciousness: Awake and Alert [...] CARI VENTURA MD Anesthesia Preprocedure Evaluation - Crai Ventura MD - 05/15/2022 12:44 PM EDT [...] IR Biopsy Spine 07/20/2019 Bobby Marshall MD [facility] INTERVENTIONL RAD ??? IR VERTEBROPLASTY LUMBAR MULTIPLE LEVELS 07/20/2019 IR Vertebroplasty Lumbar Multiple Levels 07/20/2019 Bobby Marshall MD [facility] INTERVENTIONL RAD ??? IR VERTEBROPLASTY THORACIC SINGLE LEVEL 10/25/2020 IR Vertebroplasty Thoracic Single Level 10/25/2020 Matt Chisholm MD [facility] INTERVENTIONL RAD Social History Tobacco Use [...] a(n) intravenous induction 81 yo current and buttermaker smoker with significant daily etoh use (6 [...] discussed with patient who. Plan discussed with REAL ESTATE ADMINISTRATIVE ASSISTANT. Anesthesia Screening documented in this encounter Plan of Treatment Upcoming Encounters Date Type Specialty Care Team Description 08/08/2022 Office Visit Gastroenterology Negra Collins MD [facility] GASTROENTEROLOGY DEPT [place], [place] [address] (Wo rk) 09/05/2022 Appointment Cardiology Trinity Reid MD [facility] CARDIOLOGY [place], [place] [address] (Wo rk) 09/05/2022 Office Visit Cardiology Trinity Reid MD [facility] CARDIOLOGY [place], [place] [address] (Wo rk) documented as of [...] Routine documented in this encounter Care Teams Cemetery Manager Relationship Specialty Start Date End Date Bobby Das MD PCP - General 10/02/[address] [place] [address] [place] [phone] documented as of this encounter
--- OUTSIDE RECORDS SUMMARY | 2022-07-12 09:40 | XMS_ITS | Encounter Summary ---
:1940 [place] [address] Care Team Providers Name Role Phone Bobby Dsa MD Primary Care Provider Reason for Visit Reason Comments Left Leg Pain Auth/Cert Specialty Diagnoses / Procedures Referred By Contact Refer red To Contact Diagnoses Limb ischemia LLE thrombus Fito Summers MD [facility] [place] [address] Referral ID Status Reason Start Date Expiration Date Visits Requ ested Visits Authorized [id number] 1 1 Encounter Details Date Type Department Care Team Description 05/20/2022 Surgery Docket Specialist Abundio Mcguire , CARDIAC CATHETERIZATION [facility] [place] [address] CARDIOLOGY [phone] [place], [place] [address] (Wo rk) Social History Tobacco [...] onset Afib who presents in transfer from [facility] with acute limb ischemia of the LLE. [...] emergently went to the OR for L CHEST PAIN COORDINATOR transverse arteriotomy and primary repair, thromboembolectomy of L SFA/PFA/CHEST PAIN COORDINATOR, reperfusion venous drainage for 250 cc, and [...] Discharge Condition: Good Discharge to: Home with [address] [address] Future Appointments and Orders Future Appointments and Orders Future Appointments Provider Department Dept Phone 05/23/2022 10:30 AM Loretta Cohen MD Dermatology at [facility] Arrive at: Graduating Machine Operator [address] [place] [address] 06/07/2022 1:30 PM Gail Rae APRN Vascular Surgery at [facility] Arrive at: Graduating Machine Operator [address] [phone] 06/13/2022 7:30 AM Edson Lagos [place] Vascular Lab at [facility] Arrive at: Graduating Machine Operator Area 06/13/2022 8:00 AM Fito Summers MD Vascular Surgery at [facility] Arrive at: Graduating Machine Operator Area 3V [phone] 06/13/2022 10:00 AM Alan Reid MD Cardiology at [facility] Arrive at: Graduating Machine Operator Area [phone] Future Orders Complete By Expires Ziopatch 48 Hrs-15 Days [ACT7783 CPT(R)] 05/21/2022 11/20/2022 Process Instructions: Scheduling Instructions: Comments: Questions: Does the patient have a pacemaker? If yes provide HI/LO settings: Apply for 7 or 14 days?: 7 Where will study be performed?: [facility] Clinics JOSSELYN, legs, multiple levels [VAS8 Custom] 06/21/2022 (Approximate) 12/21/2022 Process Instructions: There is no in-house vascular refuse laborer available on weeknights (5pm-8am), weekends, or holidays. IF THIS IS A REQUEST FOR AN EMERGENT STUDY DURING THOSE HOURS, please have the senior provider responsible for the patient page the Vascular Surgery Fellow/Senior Resident hearing consultant to discuss options. Scheduling Instructions: Questions: Indication for study/signs & symptoms: ALI s/p L fem cutdown with thromboembolectomy Question to be answered: Perfusion to feet? Please check toe pressure Preferred location?: [facility] Clinics Referral to Cardiology [REF12 [...] Koko Zamora for admission to Home Health. [address] [place] [phone] (home) Date of : 1940 Inpatient DOCUMENTATION FOR VNA SERVICES (INCLUDING THOSE PATIENTS WITH MEDICARE COVERAGE REQUIRING HOME VNA SERVICES AND/OR HOSPICE SERVICES) PATIENT'S LOCATION: Koko Zamora [address] [place] [phone] (home) Cell: No relevant phone numbers on file. Sales And Service Technician's Name: Koko In discussion with the attending physician, it is certified that this patient is under their care and that they, or a Nurse Practitioner,Clinical Nurse specialist or Physician Graduate Teaching Assistant who is working directly with them, had [...] for managing ADL's. HOME HEALTH CARE AGENCY: [facility]. [address] [place] [address] Start of care: Within 24 to 48 [...] from this patient'sPCP: Bobby Das MD [address] [place] [address] [place] [address] All VNA agencies which [...] For any problems or questions please call [phone] For issues on weeknights after 5pm and weekends please call [phone] and ask for the Vascular Fellow hearing consultant. JOSEE Santiago Vascular Surgery 05/21/2022 documented in [...] For any problems or questions please call [phone] For issues on weeknights after 5pm and weekends please call [phone] and ask for the Vascular Fellow hearing consultant. documented in this encounter Medications at Time [...] 04/12/20 21 (FLONASE) 50 mcg/actuation Nare route [place], Suspension daily as needed. fluorouraciL (EFUDEX) 5 [...] onset Afib who presents in transfer from [facility] with acute limb ischemia of the LLE. [...] status, full code. JOSEE Santiago 05/21/2022 Pager: [phone] Brannon Isaacs, PT - 05/21/2022 10:35 AM [...] plan as stated. Time IN / OUT: 2611-5639 Total Minutes, Physical Therapy: 25 Billing Code: 2 BOSTON Isaacs DPT Pager: [phone] Physical Therapy Inpatient Rehabilitation Department [place] Jean [...] from 05/15/2022 in Intermediate Cardiac Care Unit [facility] Office Visit from 04/17/2021 in Pain and Spine Center at [facility] Weight 79.8 kg [...] and plan of care per Dr. Mcnamara (carpet jack). Please refer to her note above for [...] to Hosp-Admission (Current) from 05/15/2022 in 4 [facility] Office Visit from 04/17/2021 in Pain and Spine Center at [facility] Weight 79.8 kg [...] findings andplan of care per Dr. Mcnamara (carpet jack). Please refer to her note above for [...] a mitral repair in 2000 (not at [facility]) with no CAD [...] AF and the first documented HR at [facility] was 125 bpm [...] onset Afib who presents in transfer from [facility] with acute limb ischemia of the LLE. [...] management following Dottie Hill APRN 05/20/2022 Pager: [phone] Laney Atkins RN - 05/20/2022 1:14 AM [...] 05/20/2022 1:09 AM EDT Pt. Transferred to [facility]. RN accompanied patient to floor and handed off to [facility] RN Dottie Hill APRN - 05/19/2022 10:02 AM EDT Vascular Surgery Progress Note Koko Zamora is a 81 y.o. male with w new onset Afib who presents in transfer from [facility] with acute limb ischemia of the LLE. ?? The patient had sudden pain starting at 630 05/15/22, he presented UTR H where he was placed on heparin. [...] management following Dottie Hill APRN 05/19/2022 Pager: [phone] Emily Sauceda RN - 05/19/2022 6:28 AM EDT OUTCOME EVALUATION NOTE: OUTCOME SUMMARY: Patient AOx4, VSS on RA. Afib on tele. HR controlled w/ PRN metop, given x2. Denies CP, SOB, n/v. See flowsheets for NVC. Dressings to LLE CDI, prevena WV to groin intact. Voiding to urinal. LBM CHEMIST INTERN, patient stating he will maybe try the [...] adequately without difficulty to bedside urinal. LBM CHEMIST INTERN. Up to chair this AM with nursing staff. Worked with PT, tolerated well. Diet changed to regular at 1800.Plan is for cardiac cath on Friday. PLAN MOVING FORWARD: Bleeding precautions Pain management neurovascular checks PT/OT lab scientist INDIVIDUALIZED FALL PREVENTION INTERVENTIONS: Patient-specific fall risk [...] onset Afib who presents in transfer from [facility] with acute limb ischemia of the LLE. [...] mL Intravenous BID ??? PHENobarbitaL 0.12 mg/kg/dose ([place]) Oral BID ??? thiamine 100 mg Oral [...] management following Dottie Hill APRN 05/18/2022 Pager: [phone] Brannon Isaacs, PT - 05/18/2022 10:00 AM [...] 07/20/2019 Bobby Marshall MD [facility] INTERVENTIONL RAD ??? IR VERTEBROPLASTY LUMBAR MULTIPLE LEVELS 07/20/2019 IR Vertebroplasty Lumbar Multiple Levels 07/20/2019 Bobby Marshall MD [facility] INTERVENTIONL RAD ??? IR VERTEBROPLASTY THORACIC SINGLE LEVEL 10/25/2020 IR Vertebroplasty Thoracic Single Level 10/25/2020 Matt Chisholm MD [facility] INTERVENTIONL RAD ??? PRO EMBLC/THRMBC FEMORAL POPLITEAL AORTO-ILIAC ARTERY Left 05/15/2022 EMBOLECTOMY OR THROMBECTOMY, FEMOROPOPLITEAL, AORTOILIAC ARTERY BY LEG INCISION (WRVU 19.48) performed by Fito Summers MD at [facility] MAIN OR Social History: Pt lives [...] in this evaluation. Time IN / OUT: 6298-6571 Total Minutes, Physical Therapy: 30 Billing Code: Basilio Isaacs, PT Pager: [phone] Physical Therapy Inpatient Rehabilitation Department Emily Sauceda RN - 05/18/2022 4:34 AM EDT OUTCOME EVALUATION NOTE: OUTCOME SUMMARY: Patient AOx4, VSS on 2LNC. Afib on tele. HR above 120, MD aware, PRN IV metop given x1, HR returned to 90's-low 100's. Denies CP, SOB, n/v. See flowsheets for NVC. Dressings to LLE CDI, prevena WV to groin intact. Voiding to urinal. LBM CHEMIST INTERN. Heparin gtt therapeutic. Pain controlled. Patient sleeping [...] adequately without difficulty to bedside urinal. LBM CHEMIST INTERN. Patient not OOB this shift. Currently NPO awaitingprocedure in quality assurance/r&d lab technician. PLAN MOVING FORWARD: Bleeding precautions Pain management neurovascular checks PT/OT NPO for quality assurance/r&d lab technician INDIVIDUALIZED FALL PREVENTION INTERVENTIONS: Patient-specific [...] the Emergency Department as a transfer from [facility] with left lower extremity limb ischemia. He went to [facility] and was startedon heparin and transferred to [facility] for evaluation by vascular surgery [...] he will will be going to the quality assurance/r&d lab technician for evaluation. Will defer PT eval at present but will see as ordered post cardiac catheritizaton. Social Hx:Pt lives with his Ursula in [place], [place] in a 2 level home in [...] WBAT LLE LISBET HERMAN PT Pager # [phone] In-Pt Rehab Medicine Dottie Hill APRN - 05/17/2022 7:42 AM EDT Vascular Surgery Progress Note Koko Zamora is a 81 y.o. male with w new onset Afib who presents in transfer from [facility] with acute limb ischemia of the LLE. [...] mL Intravenous BID ??? PHENobarbitaL 0.24 mg/kg/dose ([place]) Oral BID Followed by ??? [START ON 05/18/2022] PHENobarbitaL 0.12 mg/kg/dose ([place]) Oral BID ??? thiamine 100 mg Oral [...] management following Dottie Hill APRN 05/17/2022 Pager: [phone] Sary Dos Santos, RN - 05/17/2022 12:16 [...] Lft lower drsg CDI. T Anne, Edward Roldan MD - 05/16/2022 3:33 PM EDT Vascular Surgery Progress Note Koko Zamora is a 81 y.o. male with w new onset Afib who presents in transfer from [facility] with acute limb ischemia of the LLE. [...] mL Intravenous BID ??? PHENobarbitaL 0.48 mg/kg/dose ([place]) Oral BID Followed by ??? [START ON 05/17/2022] PHENobarbitaL 0.24 mg/kg/dose ([place]) Oral BID Followed by ??? [START ON 05/18/2022] PHENobarbitaL 0.12 mg/kg/dose ([place]) Oral BID ??? thiamine 100 mg Oral [...] management following Edward Rodríguez MD 05/16/2022 Pager: [phone] Sary Dos Santos RN - 05/16/2022 12:52 [...] met 2129 Hand off to DION Ramirez [employer] wells documented in this encounter H&P Notes Kerry [...] onset Afib who presents in transfer from [facility] with acute limb ischemia of the LLE. [...] 07/20/2019 Bobby Marshall MD [facility] INTERVENTIONL RAD ??? IR VERTEBROPLASTY LUMBAR MULTIPLE LEVELS 07/20/2019 IR Vertebroplasty Lumbar Multiple Levels 07/20/2019 Bobby Marshall MD [facility] INTERVENTIONL RAD ??? IR VERTEBROPLASTY THORACIC SINGLE LEVEL 10/25/2020 IR Vertebroplasty Thoracic Single Level 10/25/2020 Matt Chisholm MD [facility] INTERVENTIONL RAD Social Hx: Social History [...] Refill ??? fluticasone propionate (FLONASE) 50 mcg/actuation [place], Suspension as needed. ??? fluorouraciL (EFUDEX) 5 [...] and consented. Tim Chicas MD 05/15/2022 Pager: [phone] documented in this encounter ED Notes Lc Harris PA - 05/15/2022 1:20 PM EDT ED Provider Note HPI: Koko Zamora is a 81 y.o. male with history of atrial fibrillation not on anticoagulation, and GI bleeding who presents to the Emergency Department as a transfer from [facility] with left lower extremity limb ischemia. Patient says that the symptoms started roughly 630 this morning when he developed severe pain in his left lower extremity. He went to [facility] and was started on heparin and transferred to [facility] for evaluation by vascular surgery. [...] lower extremity earlier today and went to [facility] where it was determined that he had ischemia of the left lower extremity. Vascular surgery [facility] was contacted and he was transferred here [...] orders before pt. Arrival. Pt. Arrived at [facility] by EMS at [...] in an outpatient cardiac rehabilitation program at [facility] was discussed. Patient agrees to a referral to this program. Timing will depend on his recovery from Vascular surgery. He is going home w/VNA PT. I gave him the brochure for the program at [facility] for future reference. Care Management Discharge - [...] information for follow-up Home Health & Hospice, [place] [address] [place] [address] Transportation: family or friend will provide Functional [...] Type: *No Product type* / Secondary Insurance: [facility] Prescription Coverage: Yes This plan was formulated with input from patient and team. All are in agreement with plan. IP RS has communicated with [facility] - for initial IMM. Shawn López RN (Jonas) RN/CM - Cellphone: [phone] Pager: [phone] Covering Service RN/CM Plan of Care - [...] catheterization, transferred in hospital bed accompanied by Docket Specialist RN, remains on telemetry monitoring. Heparin gtt [...] Type: *No Product type* / Secondary Insurance: [facility] Last Physical Therapy Recommendation: home with home health, home with supervision with None Last Occupational Therapy Recommendation: with Plan for discharge is: Home w/ Services Outpatient Agency/Support Group Needs: None Home Health Services: Registered Nurse, Physical Therapy, Occupational Therapy Agency Referrals: I have met with the patient to: ?? discuss discharge planning needs. ?? provide the [facility], Office of Care Management letter from the Vp Cardiovascular pertaining to rehab referrals. ?? provide a letter describing our affiliations within the [facility] and educate about their right to choose where referrals are sent. ?? provide a list of Home Health Agencies / Durable Medical Equipment vendors which serve their preferred geographic area. ?? provided patient with [facility] Star Quality Rating handout. They have requested referrals to: [facility]. [address] [place] [phone] Note routed to a Men'S Designer who will communicate referrals to facilities and provide any required information. Transportation: family or friend will provide Barriers to discharge: None Plan going forward: Patient is going for a cardiac cath today and plan will come from there. Patientwas recently seen by PT and they recommend VNA at time of discharge. [facility] was routed and pendedat this time. Care Management will continue to follow and assist with discharge planning and coordination of care as indicated. Anticipated Date of Discharge: 05/21/2022 Nataly RICHMOND RN Phone: [phone] Pager: [phone] Plan of Care - Laney Atkins RN [...] from the original note were not included. [facility] [place] [address] [address] INPATIENT CARDIOLOGY CONSULT NOTE Date of Consultation: 05/17/2022 Admit Date: 05/15/2022 Hospital Day 2 days Reason for Consult: New afib Active Problems: Active Hospital Problems Diagnosis Limb ischemia Resolved Hospital Problems No resolved problems to display. HPI: Koko Zamora is a 81 y.o. male with a PMHx significant for MVP (s/p MV repair 2000), tobacco use, HLD, who presented to [facility] from OSH on 05/15 with acute limb ischemia of LLE and was found to be in atrial fibrillation. Patient had sudden onset LLE pain on 05/15 and presented to [facility], where he was started on heparin and transferred to [facility]. Upon arrival to [facility], patient was in [...] 07/20/2019 Bobby Marshall MD [facility] INTERVENTIONL RAD IR VERTEBROPLASTY LUMBAR MULTIPLE LEVELS 07/20/2019 IR Vertebroplasty Lumbar Multiple Levels 07/20/2019 Bobby Marshall MD [facility] INTERVENTIONL RAD IR VERTEBROPLASTY THORACIC SINGLE LEVEL 10/25/2020 IR Vertebroplasty Thoracic Single Level 10/25/2020 Matt Chisholm MD [facility] INTERVENTIONL RAD PRO EMBLC/THRMBC FEMORAL POPLITEAL AORTO-ILIAC ARTERY Left 05/15/2022 EMBOLECTOMY OR THROMBECTOMY, FEMOROPOPLITEAL, AORTOILIAC ARTERY BY LEG INCISION (WRVU 19.48) performed by Fito Summers MD at [facility] MAIN OR Allergies Allergen Reactions Aspirin Other (See Comments) GI bleed Out-Patient Medications: Medications Prior to Admission Medication Sig Dispense Refill Last Dose fluorouraciL (EFUDEX) 5 % Cream daily. CRESTOR 40 mg Tablet Take 40 mg by mouth daily. fluticasone propionate (FLONASE) 50 mcg/actuation [place], Suspension as needed. ascorbic acid, vitamin C, [...] 5 mL Intravenous BID PHENobarbitaL 0.24 mg/kg/dose ([place]over) Oral BID Followed by [START ON 05/18/2022] PHENobarbitaL 0.12 mg/kg/dose ([place]) Oral BID thiamine 100 mg Oral Daily folic acid 1,000 mcg Oral Daily multivitamin with minerals 1 tablet Oral Daily heparin (porcine) infusion 1,200 Units/hr (05/17/22 9672) Family History: No family history on file. [...] ED to Hosp-Admission (Current) from 05/15/[address] [place] [address] Office Visit from 04/17/2021 in Pain and Spine Center at [facility] Weight 79.8 kg [...] continue to follow Anne-Marie Larson MD Pager [phone] Clinic: [phone] 05/17/22 6:22 PM Initial Assessments - Ifrah [...] 180 days) Any patient receiving care at [facility] must abide by [place] law. The hierarchy [...] (i) The agent with financial power of staff attorney or a conservator appointed in accordance [...] raised toilet seat Home Address confirmed as: [address] [place] [phone] Social & Family Supports: All names listed below confirmed with patient as Incorrect. Will notify toni to correct. Wifes address is same as and phone is [phone]. Extended Emergency Contact Information Primary Emergency Contact: Ursula Zamora Address: [address] [place] [address] [address] [place] [address] [facility] Relation: Spouse Current Care Provided by: [...] Type: *No Product type* / Secondary Insurance: [facility] Prescription Coverage: Yes Preferred Pharmacy: [id number] - [place], [place] - [address] [facility] [address] [place] [address] [id number] - [place], [place] - [address] [facility] [address] [facility] [address] [place] Status: Patient is a : unable to assess Primary Care Provider: Bobby Das MD [phone] Patient/Caregiver Goals of Treatment: to walk again Potential Needs for Transition of Care: none noted per 05/16 IDR Transportation: family will provide Transportation Anticipated: family or friend will provide Concerns to be Addressed: no discharge needs identified Assessment: Patient is admitted to vascular surg service for left lower extremity limb ischemia Plan: Per PT OT recommendations . Has used [employer] in the past. A member of the Care Management team will continue to monitor progress, follow for continuity of care and assist with transition of care planning. Ifrah Bell RN BSN Start Up SpecialistFaculty Instructor of Care Management Pager [phone] Brief Op Note - Erin Garza MD - 05/15/2022 5:04 PM EDT Brief Operative Note Patient Name: Koko Zamora : [id number] MR#: [id number] Case Date: 05/15/2022 Surgeon: Surgeon(s) and Role: [...] Garza MD - 05/15/2022 2:08 PM EDT [facility] Operative Note Patient Name: Koko Zamora : [id number] MR#: [id number] Case Date: 05/15/2022 Surgeon: Surgeon(s) and Role: [...] Visit Gastroenterology Negra Collins MD [facility] DR GASTROENTEROLOGY DEPT [place], [place] [address] (Wo rk) 09/05/2022 Appointment Cardiology Trinity Reid MD [facility] CARDIOLOGY [place], [place] 0[address] (Wo rk) 09/05/2022 Office Visit Cardiology Trinity Reid MD [facility] CARDIOLOGY [place], [place] [address] (Wo rk) Scheduled Referrals Name [...] [facility] Range Method Time Signature VB Text Department: Vascular Surgery Lab VASCUBASE Report Patient: [id number] (KOKO ZAMORA) CPT: 70458 Referring Physician: FITO SUMMERS ?? Phone: Indications: s/p L CHEST PAIN COORDINATOR endart. Diabetes mellitus: no Findings: Right ?Pressure [...] athologist Signature Heparin UFH 0.42 IU/mL [facility] LABORATORY Comment: Heparin (anti-Xa) levels [...] Address City/State/[place] [address] Differential, Automated (05/21/2022 6:15 AM EDT) P athologist Signature Neutrophils % 58.8 % [facility] LABORATORY Neutr Abs (ANC) 3.97 1.70 - [facility] 6.10 [facility] x10(3)[facility] LABORATORY Lymphocytes % 25.2 % [facility] LABORATORY Lymphocytes Abs 1.7 0.9 - 3.2 [facility] x10(3)[facility] LABORATORY Monocytes % 12.9 % [facility] LABORATORY Monocyte Abs 0.9 0.3 - 0.9 [facility] x10(3)[facility] LABORATORY Eosinophils % 2.1 % [facility] LABORATORY Eosinophils Abs 0.1 0.0 - 0.4 [facility] x10(3)[facility] LABORATORY Basophils % 0.4 % [facility] LABORATORY Basophils Abs 0.0 0.0 - 0.1 [facility] x10(3)[facility] LABORATORY Immature Gran % 0.60 % UNIVERSITY [...] Rain Gran Abs 0.04 0.00 - 0.04 x10(3)/[facility] MAR Y [facility] LABORATORY Specimen Anatomical Collection Method Collection Time Receive d Time (Source) Location / / Volume Laterality Blood 05/21/2022 6:15 AM 2 6:38 EDT AM EDT Resulting Agency Comment Spec In Lab Edward Rodríguez MD HEMATOLOGY ORDERABLES Performing Organization Address City/State/[place] [address] (ABNORMAL) Hemogram (05/21/2022 6:15 AM EDT) [facility] Method Time Signature WBC 6.8 4.0 - 9.5 [facility] x10(3)/[facility] LABORATORY RBC 3.59 (L) 4.58 - [facility] 5.54 [facility] x10(6)/[facility] LABORATORY Hemoglobin 11.8 (L) 13.7 - [facility] 16.5 g/dL [facility] LABORATORY Hematocrit 34.5 (L) 40.5 - [facility] 48.5 % [facility] LABORATORY MCV 96.1 (H) 82.9 - [facility] 93.1 [facility] LABORATORY MCH 32.9 (H) 27.5 - [facility] 32.1 pg [facility] LABORATORY MCHC 34.2 32.0 - [facility] 35.7 g/dL [facility] LABORATORY Platelets 198 145 - 357 [facility] x10(3)/[facility] LABORATORY RDWSD 44.9 36.0 - [facility] 45.0 [facility] LABORATORY RDWCV 12.6 11.4 - [facility] 13.8 % [facility] LABORATORY MPV 10.0 7.6 - 12.9 [facility] LABORATORY nRBC % Auto 0.3 % [facility] LABORATORY nRBC Abs Auto 0.020 (H) 0.000 [facility] x10(3)/[facility] LABORATORY Specimen Anatomical Collection Method Collection Time Receive d Time (Source) Location / / Volume Laterality Blood 05/21/2022 6:15 AM 2 6:38 EDT AM EDT Resulting Agency Comment Spec In Lab Edward Rodríguez MD HEMATOLOGY ORDERABLES Performing Organization Address City/State/ZIP Code Phon e Number [place] [phone] HOSPITAL LABORATORY Drive EKG 12 Lead (05/20/2022 7:04 PM EDT) Component Value Ref Range Test Analysis Performed Pathologis t Method Time At Signature Ventricular rate 101 BPM MUSE SYSTEM QRS Duration 116 ms MUSE SYSTEM Q-T Interval 378 ms MUSE SYSTEM QTC Calculated 490 ms MUSE SYSTEM (Bezet) Calculated R Cerrillos -53 degrees MUSE SYSTEM Calculated T Cerrillos 101 degrees MUSE SYSTEM INTERPRETATION Atrial fibrillation [...] Laterality Volume Narrative 05/20/2022 7:09 PM EDT ?[facility] ? Cardiac Cathete rization/Intervention Report ? Patient Name: Koko Zamora. ? Procedure Date: 05/20/2022 ? A #: [id number] ? Primary Physician: Abundio Servin ? Case #: [id number] ? File Name: [id number] ? Catheterization Order Number: [id number] ? [facility] ? Final Report [place], [place] ? Patient Name: ? Koko J. Klarissa uson ? ID#: ?[id number] ? : ?1940 ? Procedure Date: ? May 20, 2022 ?Case #: ? [id number] ? Room: ? 1 ? Case Physician: ? Abundio roldan, M.D. ? Start: ?17:16 ? Admission: ??05/15/2022 ? Referring Physician: ??Jc MalikA. ? Procedures: ?* Coronary Angiography ?* Left Heart Catheterization ?* Coronary Ultrasound ?* Coronary Angioplasty ?* Coronary Stent Insertion ? History ?Koko J. Zamora is a 81 year old man. [...] procedure was Urgent. The indication for ?the quality assurance/r&d lab technician visit is cardiomyo nita. Chest [...] insertion were ?performed and the equipment uti arina will be described in the ?intervention summary [...] ?3.5 guiding catheter and a 3.[address] ??20 Mhz. ??Imaging ?was successful. ??Image [...] premounted 2. 75 x 30 mm Rudy Dec[place] (AMPARO) was deployed ? with a maximum [...] require ?modification of this regimen. C onsult [facility] Interventional Cardiology for ?questions. ?The [...] 123 65 - 199 IFRAH XIAO mg/dL [facility] LABORATORY Comment: Supplemental ranges: <140 mg/dL before meals <180 mg/dL all other times of the day Specimen Anatomical Collection Method Collection Time Receive d Time (Source) Location / / Volume Laterality Blood 05/20/2022 5:42 PM 5:42 EDT PM EDT Fito Summers MD POINT OF CARE TEST ORDERABLE S Performing Organization Address City/State/[place] [address] (ABNORMAL) BMP w/fasting Glucose (05/20/2022 10:50 AM EDT) P athologist Signature Glucose 152 (H) 65 - 99 IFRAH XIAO Fasting mg/dL [facility] LABORATORY Comment: ?Fasting* Glucose Interpretive C [...] of Diabetes Mellitus, Position Statement from the [place]. ??Diabete s Care, Volume 33, Supplement 1, Nov 2009 BUN 11 10 - 20 mg/dL [facility] LABORATORY Creatinine 0.63 (L) 0.80 - 1.50 mg/dL [facility] LABORATORY Sodium 137 135 - 145 mmol/L [facility] LABORATORY Potassium 3.6 3.5 - 5.0 mmol/L [facility] LABORATORY [...] 15 mmol/L [facility] LABORATORY Calcium 8.7 8.5 - 10.5 mg/dL [facility] LABORATORY Estimated GFR 97 >=60 mL/min/1.73 [...] Organization Address City/State/[place] [address] Heparin (unfractionated) Level (05/20/2022 5:02 AM EDT) P athologist Signature Heparin UFH 0.57 IU/mL [facility] LABORATORY Comment: Heparin (anti-Xa) levels [...] Address City/State/[place] [address] (ABNORMAL) Differential, Automated (05/20/2022 5:02 AM EDT) [facility] gist Method Time Signature Neutrophils % 58.1 % [facility] LABORATORY Neutr Abs (ANC) 4.52 1.70 - [facility] 6.10 [facility] x10(3)/[facility] LABORATORY Lymphocytes % 24.1 % [facility] LABORATORY Lymphocytes Abs 1.9 0.9 - 3.2 [facility] x10(3)/[facility] LABORATORY Monocytes % 13.8 % [facility] LABORATORY Monocyte Abs 1.1 (H) 0.3 - 0.9 [facility] x10(3)/[facility] LABORATORY Eosinophils % 2.6 % [facility] LABORATORY Eosinophils Abs 0.2 0.0 - 0.4 [facility] x10(3)/[facility] LABORATORY Basophils % 0.8 % [facility] LABORATORY Basophils Abs 0.1 0.0 - 0.1 [facility] x10(3)/[facility] LABORATORY Immature Gran % 0.60 % UNIVERSITY [...] Organization Address City/State/[place] [address] (ABNORMAL) Hemogram (05/20/2022 5:02 AM EDT) Analysis Performed At Patho logist Time Signature WBC 7.8 4.0 - 9.5 [facility] x10(3)/[facility] LABORATORY RBC 3.53 (L) 4.58 - [facility] 5.54 [facility] x10(6)/[facility] LABORATORY Hemoglobin 11.4 (L) 13.7 - [facility] 16.5 g/dL [facility] LABORATORY Hematocrit 34.3 (L) 40.5 - [facility] 48.5 % [facility] LABORATORY MCV 97.2 (H) 82.9 - [facility] 93.1 [facility] LABORATORY MCH 32.3 (H) 27.5 - [facility] 32.1 pg [facility] LABORATORY MCHC 33.2 32.0 - [facility] 35.7 g/dL [facility] LABORATORY Platelets 181 145 - 357 [facility] x10(3)/[facility] LABORATORY RDWSD 46.4 (H) 36.0 - [facility] 45.0 [facility] LABORATORY RDWCV 13.0 11.4 - [facility] 13.8 % [facility] LABORATORY MPV 10.4 7.6 - 12.9 [facility] LABORATORY nRBC % Auto 0.0 % [facility] LABORATORY nRBC Abs Auto 0.000 0.000 - [facility] 0.000 [facility] x10(3)/[facility] LABORATORY Specimen Anatomical Collection Method Collection Time Receive d Time (Source) Location / / Volume Laterality Blood 05/20/2022 5:02 AM 2 5:19 EDT AM EDT Resulting Agency Comment Spec In Lab Edward Rodríguez MD HEMATOLOGY ORDERABLES Performing Organization Address City/[facility]/ZIP Code Phon e Number [address] Heparin (unfractionated) Level (05/19/2022 3:26 AM EDT) P athologist Signature Heparin UFH 0.59 IU/mL [facility] LABORATORY Comment: Heparin (anti-Xa) levels [...] Summers MD HEMATOLOGY ORDERABLES Performing Organization Address City/[facility]/ZIP Code Phon e Number [place] [phone] HOSPITAL LABORATORY Drive (ABNORMAL) Differential, Automated (05/19/2022 3:26 AM EDT) Patholo gist Method Time Signature Neutrophils % 62.1 % [facility] LABORATORY Neutr Abs (ANC) 4.59 1.70 - [facility] 6.10 [facility] x10(3)/[facility] LABORATORY Lymphocytes % 22.1 % [facility] LABORATORY Lymphocytes Abs 1.6 0.9 - 3.2 [facility] x10(3)/[facility] LABORATORY Monocytes % 13.5 % [facility] LABORATORY Monocyte Abs 1.0 (H) 0.3 - 0.9 [facility] x10(3)/[facility] LABORATORY Eosinophils % 1.3 % [facility] LABORATORY Eosinophils Abs 0.1 0.0 - 0.4 [facility] x10(3)/[facility] LABORATORY Basophils % 0.5 % [facility] LABORATORY Basophils Abs 0.0 0.0 - 0.1 [facility] x10(3)/[facility] LABORATORY Immature Gran % 0.50 % UNIVERSITY [...] Rain Gran Abs 0.04 0.00 - 0.04 x10(3)/[facility] Y [facility] LABORATORY Specimen Anatomical Collection Method Collection Time Receive d Time (Source) Location / / Volume Laterality Blood 05/19/2022 3:26 AM 3:59 EDT AM EDT Resulting Agency Comment Spec In Lab Edward Rodríguez MD HEMATOLOGY ORDERABLES Performing Organization Address City/State/[place] [address] (ABNORMAL) Hemogram (05/19/2022 3:26 AM EDT) Analysis Performed At Patho logist Time Signature WBC 7.4 4.0 - 9.5 [facility] x10(3)/[facility] LABORATORY RBC 3.74 (L) 4.58 - [facility] 5.54 [facility] x10(6)/[facility] LABORATORY Hemoglobin 12.1 (L) 13.7 - [facility] 16.5 g/dL [facility] LABORATORY Hematocrit 36.4 (L) 40.5 - [facility] 48.5 % [facility] LABORATORY MCV 97.3 (H) 82.9 - [facility]AG[place] 93.1 [facility] LABORATORY MCH 32.4 (H) 27.5 - [facility]AG[facility] 32.1 pg [facility] LABORATORY MCHC 33.2 32.0 - [facility] 35.7 g/dL [facility] LABORATORY Platelets 168 145 - 357 [facility] x10(3)/[facility] LABORATORY RDWSD 46.9 (H) 36.0 - [facility] HAG[facility] 45.0 [facility] LABORATORY RDWCV 13.0 11.4 - [facility]AG[facility] 13.8 % [facility] LABORATORY MPV 10.5 7.6 - 12.9 [facility] HAG[facility] LABORATORY nRBC % Auto 0.0 % [facility] LABORATORY nRBC Abs Auto 0.000 0.000 - [facility] [place] 0.000 [facility] x10(3)/[facility] LABORATORY Specimen Anatomical Collection Method Collection Time Receive d Time (Source) Location / / Volume Laterality Blood 05/19/2022 3:26 AM 2 3:59 EDT AM EDT Resulting Agency Comment Spec In Lab Edward Rodríguez MD HEMATOLOGY ORDERABLES Performing Organization Address City/State/Z[place] [address] TSH (05/18/2022 8:00 PM EDT) P athologist Signature TSH 2.27 0.27 - 4.20 IFRAH XIAO mcIU/mL [facility] LABORATORY Comment: Reference Interval (mcIU/mL): Females: ??First Trimester: 0.23-3.88 ??Second Trimester: 0.22-3.90 ??Third Trimester: 0.44-4.66 Specimen Anatomical Collection Method Collection Time Receive d Time (Source) Location / / Volume Laterality Blood 05/18/2022 8:00 PM 2 8:06 EDT PM EDT Resulting Agency Comment Spec In Lab Fito Summers MD CHEMISTRY ORDERABLES Performing Organization Address City/State/Z[place] [address] (ABNORMAL) Differential, Automated (05/18/2022 3:34 AM EDT) Patholo gist Method Time Signature Neutrophils % 67.2 % [facility] LABORATORY Neutr Abs (ANC) 5.89 1.70 - [facility] 6.10 [facility] x10(3)/[facility] LABORATORY Lymphocytes % 17.1 % [facility] LABORATORY Lymphocytes Abs 1.5 0.9 - 3.2 [facility] x10(3)/[facility] LABORATORY Monocytes % 13.6 % [facility] LABORATORY Monocyte Abs 1.2 (H) 0.3 - 0.9 [facility] x10(3)/[facility] LABORATORY Eosinophils % 1.0 % [facility] LABORATORY Eosinophils Abs 0.1 0.0 - 0.4 [facility] x10(3)/[facility] LABORATORY Basophils % 0.6 % [facility] LABORATORY Basophils Abs 0.0 0.0 - 0.1 [facility] x10(3)/[facility] LABORATORY Immature Gran % 0.50 % UNIVERSITY [...] Rain Gran Abs 0.04 0.00 - 0.04 x10(3)/[facility] MAR Y [facility] LABORATORY Specimen Anatomical Collection Method Collection Time Receive d Time (Source) Location / / Volume Laterality Blood 05/18/2022 3:34 AM 3:48 EDT AM EDT Resulting Agency Comment Spec In Lab Edward Rodríguez MD HEMATOLOGY ORDERABLES Performing Organization Address City/State/[place] [address] (ABNORMAL) Hemogram (05/18/2022 3:34 AM EDT) Analysis Performed At [facility] logist Time Signature WBC 8.8 4.0 - 9.5 [facility] x10(3)/[facility] LABORATORY RBC 3.45 (L) 4.58 - [facility] 5.54 [facility] x10(6)/[facility] LABORATORY Hemoglobin 11.2 (L) 13.7 - [facility] 16.5 g/dL [facility] LABORATORY Hematocrit 33.0 (L) 40.5 - [facility] 48.5 % [facility] LABORATORY MCV 95.7 (H) 82.9 - [facility] 93.1 [facility] LABORATORY MCH 32.5 (H) 27.5 - [facility] 32.1 pg [facility] LABORATORY MCHC 33.9 32.0 - [facility] 35.7 g/dL [facility] LABORATORY Platelets 130 (L) 145 - 357 [facility] x10(3)/[facility] LABORATORY RDWSD 46.2 (H) 36.0 - [facility] 45.0 [facility] LABORATORY RDWCV 13.2 11.4 - [facility] 13.8 % [facility] LABORATORY MPV 10.8 7.6 - 12.9 [facility] LABORATORY nRBC % Auto 0.0 % [facility] LABORATORY nRBC Abs Auto 0.000 0.000 - [facility] 0.000 [facility] x10(3)/[facility] LABORATORY Specimen Anatomical Collection Method Collection Time Receive d Time (Source) Location / / Volume Laterality Blood 05/18/2022 3:34 AM 3:48 EDT AM EDT Resulting Agency Comment Spec In Lab Edward Rodríguez MD HEMATOLOGY ORDERABLES Performing Organization Address City/State/[place] [address] Heparin (unfractionated) Level (05/18/2022 3:34 AM EDT) P athologist Signature Heparin UFH 0.59 IU/mL [facility] LABORATORY Comment: Heparin (anti-Xa) levels [...] Summers MD HEMATOLOGY ORDERABLES Performing Organization Address City/[facility]/ZIP Code Phon e Number [address] Magnesium (05/17/2022 3:33 AM EDT) athologist Signature Magnesium 0.76 0.69 - 1.07 [facility] mmol/L [facility] LABORATORY Specimen Anatomical Collection Method Collection Time Receive d Time (Source) Location / / Volume Laterality Blood Venous Draw / 05/17/2022 3:33 AM 05/17/20 4:05 Unknown EDT AM EDT Resulting Agency Comment Spec In Lab Dottie Hill APRN CHEMISTRY ORDERABLES Performing Organization Address City/[facility]/ZIP [place] [address] (ABNORMAL) Basic Metabolic Panel (non-fasting) (05/17/2022 3:33 AM EDT) P athologist Signature Glucose Lvl 158 65 - 199 [facility] mg/dL [facility] LABORATORY Comment: Diabetes: >=200 mg/dL plus symp toms BUN 12 10 - 20 mg/dL [facility] LABORATORY Creatinine 0.74 (L) 0.80 - 1.50 mg/dL [facility] LABORATORY Sodium 137 135 - 145 mmol/L [facility] LABORATORY Potassium 3.5 3.5 - 5.0 mmol/L [facility] LABOR[facility]ORY Comment: Please note: ??Patients [...] 15 mmol/L [facility] LABORATORY Calcium 8.4 (L) 8.5 - 10.5 mg/dL [facility] LABORATORY Estimated GFR 92 >=60 mL/min/1.73 [...] Organization Address City/State/[place] [address] (ABNORMAL) Differential, Automated (05/17/2022 3:33 AM EDT) [facility] gist Method Time Signature Neutrophils % 65.5 % [facility] LABORATORY Neutr Abs (ANC) 6.84 (H) 1.70 - [facility] 6.10 [facility] x10(3)/[facility] L LABORATORY Lymphocytes % 19.7 % [facility] LABORATORY Lymphocytes Abs 2.1 0.9 - 3.2 [facility] x10(3)/[facility] LABORATORY Monocytes % 13.1 % [facility] LABORATORY Monocyte Abs 1.4 (H) 0.3 - 0.9 [facility] x10(3)/[facility] LABORATORY Eosinophils % 0.6 % [facility] LABORATORY Eosinophils Abs 0.1 0.0 - 0.4 [facility] x10(3)/[facility] LABORATORY Basophils % 0.6 % [facility] LABORATORY Basophils Abs 0.1 0.0 - 0.1 [facility] x10(3)/[facility] LABORATORY Immature Gran % 0.50 % UNIVERSITY [...] Organization Address City/State/[place] [address] (ABNORMAL) Hemogram (05/17/2022 3:33 AM EDT) Analysis Performed At Patho logist Time Signature WBC 10.4 (H) 4.0 - 9.5 [facility] x10(3)/[facility] LABORATORY RBC 3.72 (L) 4.58 - [facility] 5.54 [facility] x10(6)/[facility] LABORATORY Hemoglobin 12.0 (L) 13.7 - [facility] 16.5 g/dL [facility] LABORATORY Hematocrit 36.4 (L) 40.5 - [facility] 48.5 % [facility] LABORATORY MCV 97.8 (H) 82.9 - [facility]1 [facility] LABORATORY MCH 32.3 (H) 27.5 - [facility] 32.1 pg [facility] LABORATORY MCHC 33.0 32.0 - [facility] 35.7 g/dL [facility] LABORATORY Platelets 149 145 - 357 [facility] x10(3)/[facility] LABORATORY RDWSD 48.7 (H) 36.0 - [facility] 45.0 [facility] LABORATORY RDWCV 13.5 11.4 - [facility] 13.8 % [facility] LABORATORY MPV 10.6 7.6 - 12.9 [facility] LABORATORY nRBC % Auto 0.0 % [facility] LABORATORY nRBC Abs Auto 0.000 0.000 - [facility] 0.000 [facility] x10(3)/[facility] LABORATORY Specimen Anatomical Collection Method Collection Time Receive d Time (Source) Location / / Volume Laterality Blood 05/17/2022 3:33 AM 3:53 EDT AM EDT Resulting Agency Comment Spec In Lab Edward Rodríguez MD HEMATOLOGY ORDERABLES Performing Organization Address City/State/[place] [address] (ABNORMAL) Urinalysis Microscopic Exam [...] Address City/State/[place] [address] (ABNORMAL) Urinalysis with reflex Culture (05/16/2022 11:15 PM EDT) Patholo gist Method Time Signature Glucose UA Negative Negative [facility] mg/dL [facility] LABORATORY Protein UA Negative Negative [facility] mg/dL [facility] Bilirubin UA Negative Negative [facility] mg/dL [facility] LABORATORY Comment: Clinical correlation required for positi ve Urine Bilirubin results as false positive may occur with some drugs and d rug related products. If a false positive is suspected a serum total bili quarles should be considered if clinically indicated. Urobilinogen UA Normal Normal mg/dL [facility] LABORATORY pH UA 6.0 5.0 - 8.0 [facility] LABORATORY Blood UA Small (A) Negative mg/dL [facility] LABORATORY Ketones UA Trace (A) Negative mg/dL [facility] LABORATORY Nitrite UA Negative Negative [facility] LABORATORY Leukocytes UA Negative Negative [facility] LABORATORY Appearance UA Clear Clear [facility] LABORATORY Spec [place] UA 1.021 1.005 - 1.030 [facility] LABORATORY Color UA Yellow Yellow [facility] LABORATORY Culture Reflexed No [facility] LABORATORY Specimen Anatomical Collection Method Collection Time Receive d Time (Source) Location / / Volume Laterality Clean Catch 05/16/2022 11:15 05/16/2022 Urine PM EDT 11:30 PM EDT Resulting Agency Comment Spec In Lab Fito Summers MD URINE ORDERABLES Performing Organization Address City/State/[place] [address] Heparin (unfractionated) Level (05/16/2022 10:59 PM EDT) P athologist Signature Heparin UFH 0.65 IU/mL [facility] LABORATORY Comment: Specimen drawn more [...] Organization Address City/State/ZIP Code Phon e Number [place] [id number] HOSPITAL LABORATORY Drive XR Chest One View [...] who have questions please contact the health health care attorney that requested your imaging first. ? Narrative [...] ho have questions please contact the health health care attorney that requested your imaging first. Electronically signed by: Tiffanie George MD , [facility] ([phone]), at 05/16/2022 9:27 PM Fito Summers MD IMG DX ORDERABLES EKG 12 Lead (05/16/2022 8:57 PM EDT) Component Value Ref Range Test Analysis Performed Pathologis t Method Time At Signature Ventricular rate 117 BPM MUSE SYSTEM QRS Duration 112 ms MUSE SYSTEM Q-T Interval 346 ms MUSE SYSTEM QTC Calculated 482 ms MUSE SYSTEM (Bezet) Calculated R Cerrillos -48 degrees MUSE SYSTEM Calculated T Cerrillos 111 degrees MUSE SYSTEM INTERPRETATION Atrial fibrillation [...] P athologist Signature Heparin UFH 0.53 IU/mL [facility] LABORATORY Comment: Heparin (anti-Xa) levels should be deter mined in a plasma sample that has been drawn 6 hours after a dose change to leopoldo roximate steady-state for continuous heparin infusions. Indication specific Heparin (anti-Xa) le vels based on order set selection: Acute DVT or PE treatment: 0.3 ? 0.7 IU/mL Thrombosis Prevention (eg. atrial fibril lation, nkiki-procedural bridging, mechanical valves): 0.3 ? 0.7 IU/mL [...] Organization Address City/State/[place] [address] ECHOCARDIOGRAM COMPLETE W CONTRAST (05/16/2022 12:49 PM EDT) athologist Signature EF 28 HEARTLAB SYSTEM Anatomical Region Laterality Modality Cardiac Other Specimen (Source) Anatomical Collection Method Collection Time Re ceived Time Location / / Volume Laterality 05/16/2022 11:22 AM EDT Narrative 05/16/2022 1:54 PM EDT ?[facility] ?[address] ? [place] [address] ?Voice: ?Fax: ? Echocardiogram Report Name: KOKO ZAMORA J ?Study Date: 05/16/2022 11:22 AM ? Patient Location: 3WST [id number] B : 1940 ? Height: 67.5 in ? Account: [id number] Age: 81 yrs ? Weight: 176 lb Gender: Male ?BSA: 1.9 m2 Ordering Physician: FITO SUMMERS Referring Physician: MALI FLORIAN Performed By: Jolene Bernard LOLLY Exam Location: [facility]. Interpretation [...] and LV systolic dysfunction are new. Procedure Complete-[id number]. Image enhancement Optiso n was used for [...] note might be different from the original. [facility] [address] [place] [address] Voice: Fax: Echocardiogram Report Name: KOKO ZAMORA Study Date: 05/2022 11:22 AM Patient Location: [address] [place] [address] B : 1940 Height: 67.5 in Account: [id number] Age: 81 yrs Weight: 176 lb Gender: [...] and LV systolic dysfunction are new. Procedure Complete-[id number]. Image enhancement Optiso n was used for [...] Differential, Automated (05/16/2022 3:01 AM EDT) [facility] gist Method Time Signature Neutrophils % 78.8 % [facility] LABORATORY Neutr Abs (ANC) 9.11 (H) 1.70 - [facility] 6.10 [facility] x10(3)/[facility] LABORATORY Lymphocytes % 9.4 % [facility] LABORATORY Lymphocytes Abs 1.1 0.9 - 3.2 [facility] x10(3)/[facility] LABORATORY Monocytes % 10.9 % [facility] LABORATORY Monocyte Abs 1.3 (H) 0.3 - 0.9 [facility] x10(3)/[facility] LABORATORY Eosinophils % 0.0 % [facility] LABORATORY Eosinophils Abs 0.0 0.0 - 0.4 [facility] x10(3)/[facility] LABORATORY Basophils % 0.3 % [facility] LABORATORY Basophils Abs 0.0 0.0 - 0.1 [facility] x10(3)/[facility] LABORATORY Immature Gran % 0.60 % UNIVERSITY [...] Organization Address City/State/[place] [address] (ABNORMAL) Hemogram (05/16/2022 3:01 AM EDT) Analysis Performed At Patho logist Time Signature WBC 11.6 (H) 4.0 - 9.5 [facility] x10(3)/[facility] LABORATORY RBC 3.62 (L) 4.58 - [facility] 5.54 [facility] x10(6)/[facility] LABORATORY Hemoglobin 12.0 (L) 13.7 - [facility] 16.5 g/dL [facility] LABORATORY Hematocrit 35.3 (L) 40.5 - [facility] 48.5 % [facility] LABORATORY MCV 97.5 (H) 82.9 - [facility] 93.1 [facility] LABORATORY MCH 33.1 (H) 27.5 - [facility] 32.1 pg [facility] LABORATORY MCHC 34.0 32.0 - [facility] 35.7 g/dL [facility] LABORATORY Platelets 151 145 - 357 [facility] x10(3)/[facility] LABORATORY RDWSD 47.6 (H) 36.0 - [facility] 45.0 [facility] LABORATORY RDWCV 13.3 11.4 - [facility] 13.8 % [facility] LABORATORY MPV 10.5 7.6 - 12.9 [facility] LABORATORY nRBC % Auto 0.0 % [facility] LABORATORY nRBC Abs Auto 0.000 0.000 - [facility] 0.000 [facility] x10(3)/[facility] LABORATORY Specimen Anatomical Collection Method Collection Time Receive d Time (Source) Location / / Volume Laterality Blood 05/16/2022 3:01 AM 2 3:36 EDT AM EDT Resulting Agency Comment Spec In Lab Erin Garza MD HEMATOLOGY ORDERABLES Performing Organization Address City/[facility]/ZIP Code Phon e Number [address] Phosphorus (05/16/2022 3:01 AM EDT) athologist Signature Phosphorus 3.7 2.5 - 4.5 [facility] LABORATORY Specimen Anatomical Collection Method Collection Time Receive d Time (Source) Location / / Volume Laterality Blood 05/16/2022 3:01 AM 2 3:36 EDT AM EDT Resulting Agency Comment Spec In Lab Fito Summers MD CHEMISTRY ORDERABLES Performing Organization Address City/[facility]/ZIP Code Phon e Number [address] Magnesium (05/16/2022 3:01 AM EDT) athologist Signature Magnesium 0.77 0.69 - 1.07 [facility] mmol/L [facility] LABORATORY Specimen Anatomical Collection Method Collection Time Receive d Time (Source) Location / / Volume Laterality Blood 05/16/2022 3:01 AM 2 3:36 EDT AM EDT Resulting Agency Comment Spec In Lab Fito Summers MD CHEMISTRY ORDERABLES Performing Organization Address City/[facility]/ZIP [place] [address] (ABNORMAL) Basic Metabolic Panel (non-fasting) (05/16/2022 3:01 AM EDT) P athologist Signature Glucose Lvl 222 (H) 65 - 199 [facility] mg/dL [facility] LABORATORY Comment: Diabetes: >=200 mg/dL plus symp toms BUN 12 10 - 20 mg/dL [facility] LABORATORY Creatinine 0.66 (L) 0.80 - 1.50 mg/dL [facility] LABORATORY Sodium 138 135 - 145 mmol/L [facility] LABORATORY Potassium 4.5 3.5 - 5.0 mmol/L [facility] LABORATORY [...] Anion Gap 8 5 - 15 mmol/L [facility] LABORATORY Calcium 8.2 (L) 8.5 - 10.5 mg/dL [facility] LABORATORY Estimated GFR 95 >=60 mL/min/1.73 [...] Organization Address City/State/[place] [address] (ABNORMAL) BLOOD GAS 2 ARTERIAL (05/15/2022 3:33 PM EDT) Analysis Performed At Patho logist Time Signature pH Art 7.33 (L) 7.35 - [facility] 7.45 [facility] LABORATORY pCO2 Art 41 35 - 45 [facility] LABORATORY pO2 Art 131 (H) 85 - 104 [facility] LABORATORY HCO3 Art 21.1 20.0 - [facility] 26.0 [facility] mmol/L [facility] LABORATORY BE Art -4.8 (L) -3.0 - 3.0 [facility] mmol/L [facility] LABORATORY Hgb Blood Gas 13.4 (L) 13.7 - [facility] 16.5 g/dL [facility] O2HB Art 96.9 94.0 - [facility] 97.0 % [facility] LABORATORY COHB Art 1.4 % UNIVERSITY [...] Blood 113 (H) 98 - 107 mmol/L [facility] LABORATORY Gluc Whole Bld 136 65 - 199 mg/dL [facility] LABORATORY Comment: Diabetes: >=200 mg/dL plus symp toms. Lactate WB 2.0 0.5 - 2.2 mmol/L [facility] LABORATORY Specimen Anatomical Collection Method Collection Time Receive d Time (Source) Location / / Volume Laterality Blood 05/15/2022 3:33 PM 3:[address] Jamel Torre MD CHEMISTRY ORDERABLES Performing Organization Address City/State/[place] [address] (ABNORMAL) BLOOD GAS 2 ARTERIAL (05/15/2022 2:06 PM EDT) Analysis Performed At Patho logist Time Signature pH Art 7.39 7.35 - [facility] 7.45 [facility] LABORATORY pCO2 Art 35 35 - 45 [facility] mmHg [facility] LABORATORY pO2 Art 135 (H) 85 - 104 [facility] LABORATORY HCO3 Art 20.8 20.0 - [facility] 26.0 [facility] mmol/L [facility] LABORATORY BE Art -4.2 (L) -3.0 - 3.0 [facility] mmol/L [facility] LABORATORY Hgb Blood Gas 14.5 13.7 - [facility] 16.5 g/dL [facility] O2HB Art 97.2 (H) 94.0 - [facility] 97.0 % [facility] LABORATORY COHB Art 1.2 % [facility] LABORATORY Comment: Nonsmokers: 0.5-1.5% COHB Smokers: Variable, but usually less than 10% Toxic: 20-30% COHB Lethal: Greater than 60% COHB METHB Art 0.3 <=1.5 % [facility] LABORATORY Na Whole Blood 140 [...] Blood 109 (H) 98 - 107 mmol/L [facility] LABORATORY Gluc Whole Bld 152 65 - 199 mg/dL [facility] LABORATORY Comment: Diabetes: >=200 mg/dL plus symp toms. Lactate WB 1.5 0.5 - 2.2 mmol/L [facility] LABORATORY Specimen Anatomical Collection Method Collection Time Receive d Time (Source) Location / / Volume Laterality Blood 05/15/2022 2:06 PM 2 2:[address] Jamel Torre MD CHEMISTRY ORDERABLES Performing Organization Address City/State/[place] [address] (ABNORMAL) Prothrombin Time (05/15/2022 12:30 PM EDT) athologist Signature PT 12.9 (H) 9.4 - 12.5 [facility] LABORATORY INR 1.1 [facility] Resulting Agency Comment Spec In Lab Jhonny P Andrew DO HEMATOLOGY ORDERABLES Performing Organization Address City/State/[place] [address] (ABNORMAL) APTT (05/15/2022 12:30 [...] Address City/State/[place] [address] Gold Tube HOLD (05/15/2022 12:20 PM EDT) athologist Signature Gold Hold Sample in [facility]. [facility] LABORATORY Specimen Anatomical Collection Method Collection Time Receive d Time (Source) Location / / Volume Laterality Blood No Charge / 05/15/2022 12:20 05/15/2022 Unknown PM EDT 12:20 PM EDT Lc Dominick Kimberly TRIPP CHEMISTRY ORDERABLES Performing Organization Address City/State/ZIP Code Phon e Number [address] Type and Screen Validity (05/15/2022 12:00 PM EDT) [facility] Method Time Signature T&S only valid [facility] at [facility] LABORATORY Comment: This Type and Screen result is only valid at the [facility] Specimen Anatomical Collection Method Collection Time Receive d Time (Source) Location / / Volume Laterality Blood 05/15/2022 12:00 05/15/2022 PM EDT 12:17 PM EDT Resulting Agency Comment Spec In Lab Lc TRIPP BLOOD BANK ORDERABLES Performing Organization Address City/State/ZIP Code Phon e Number [address] ABORH Recheck Status (05/15/2022 12:00 PM EDT) [facility] Method Time Signature ABORH Recheck Order Placed [facility] K Order [facility] LABORATORY ABORH Type Complete [facility] LABORATORY Specimen Anatomical Collection Method Collection Time Receive d Time (Source) Location / / Volume Laterality Blood 05/15/2022 12:00 05/15/2022 PM EDT 12:17 PM EDT Resulting Agency Comment Spec In Lab Lc Dominick Kimberly PA BLOOD BANK ORDERABLES Performing Organization Address City/State/ZIP Code Phon e Number [address] CK (05/15/2022 12:00 PM EDT) athologist Signature CK, Total 87 0 - 200 [facility] unit/L [facility] LABORATORY Specimen Anatomical Collection Method Collection Time Receive d Time (Source) Location / / Volume Laterality Blood Venous Draw / 05/15/2022 12:00 05/15/2022 Unknown PM EDT 12:19 PM EDT Resulting Agency Comment Spec In Lab Fito Summers MD CHEMISTRY ORDERABLES Performing Organization Address City/[facility]/ZIP [place] [address] Antibody screen (05/15/2022 12:00 PM EDT) [facility] Method Time Signature Ab Screen Negative [facility] LABORATORY Expires at 05/18/2022 [facility] [id number] on: [facility] LABORATORY Specimen Anatomical Collection Method Collection Time Receive d Time (Source) Location / / Volume Laterality Blood 05/15/2022 12:00 05/15/2022 PM EDT 12:17 PM EDT Resulting Agency Comment Spec In Lab Lc TRIPP BLOOD BANK ORDERABLES Performing Organization Address City/[facility]/ZIP [place] [address] ABO/Rh Typing (05/15/2022 12:00 PM EDT) P athologist Signature ABORh Type O Pos [facility] LABORATORY Specimen Anatomical Collection Method Collection Time Receive d Time (Source) Location / / Volume Laterality Blood 05/15/2022 12:00 05/15/2022 PM EDT 12:17 PM EDT Resulting Agency Comment Spec In Lab Lc TRIPP BLOOD BANK ORDERABLES Performing Organization Address City/[facility]/ZIP [place] [address] (ABNORMAL) Differential, Automated (05/15/2022 12:00 PM EDT) [facility] Method Time Signature Neutrophils % 79.4 % [facility] LABORATORY Neutr Abs (ANC) 7.49 (H) 1.70 - [facility] 6.10 [facility] x10(3)/[facility] L LABORATORY Lymphocytes % 11.3 % [facility] LABORATORY Lymphocytes Abs 1.1 0.9 - 3.2 [facility] x10(3)/[facility] LABORATORY Monocytes % 7.8 % [facility] LABORATORY Monocyte Abs 0.7 0.3 - 0.9 [facility] x10(3)/[facility] LABORATORY Eosinophils % 0.6 % [facility] LABORATORY Eosinophils Abs 0.1 0.0 - 0.4 [facility] x10(3)/[facility] LABORATORY Basophils % 0.6 % [facility] LABORATORY Basophils Abs 0.1 0.0 - 0.1 [facility] x10(3)/[facility] LABORATORY Immature Gran % 0.30 % UNIVERSITY [...] Rain Gran Abs 0.03 0.00 - 0.04 x10(3)/[facility] MAR Y [facility] LABORATORY Specimen Anatomical Collection Method Collection Time Receive d Time (Source) Location / / Volume Laterality Blood 05/15/2022 12:00 05/15/2022 PM EDT 12:19 PM EDT Resulting Agency Comment Spec In Lab Lc TRIPP HEMATOLOGY ORDERABLES Performing Organization Address City/State/[place] [address] (ABNORMAL) Hemogram (05/15/2022 12:00 PM EDT) Analysis Performed At Patho logist Time Signature WBC 9.4 4.0 - 9.5 [facility] x10(3)/[facility] LABORATORY RBC 4.48 (L) 4.58 - [facility] 5.54 [facility] x10(6)/[facility] LABORATORY Hemoglobin 14.5 13.7 - [facility] 16.5 g/dL [facility] LABORATORY Hematocrit 42.4 40.5 - [facility] 48.5 % [facility] LABORATORY MCV 94.6 (H) 82.9 - [facility] 93.1 [facility] LABORATORY MCH 32.4 (H) 27.5 - [facility] 32.1 pg [facility] LABORATORY MCHC 34.2 32.0 - [facility] 35.7 g/dL [facility] LABORATORY Platelets 209 145 - 357 [facility] x10(3)/[facility] LABORATORY RDWSD 45.9 (H) 36.0 - [facility] 45.0 [facility] LABORATORY RDWCV 13.1 11.4 - [facility] 13.8 % [facility] LABORATORY MPV 10.5 7.6 - 12.9 [facility] LABORATORY nRBC % Auto 0.0 % [facility] LABORATORY nRBC Abs Auto 0.000 0.000 - [facility] 0.000 [facility] x10(3)/[facility] LABORATORY Specimen Anatomical Collection Method Collection Time Receive d Time (Source) Location / / Volume Laterality Blood 05/15/2022 12:00 05/15/2022 PM EDT 12:19 PM EDT Resulting Agency Comment Spec In Lab Lc TRIPP HEMATOLOGY ORDERABLES Performing Organization Address City/State/[place] [address] (ABNORMAL) Basic Metabolic Panel (non-fasting) (05/15/2022 12:00 PM EDT) P athologist Signature Glucose Lvl 203 (H) 65 - 199 [facility] mg/dL [facility] LABORATORY Comment: Diabetes: >=200 mg/dL plus symp toms BUN 16 10 - 20 mg/dL [facility] LABORATORY Creatinine 0.84 0.80 - 1.50 mg/dL [facility] LABORATORY Sodium 141 135 - 145 mmol/L [facility] LABORATORY Potassium 4.7 3.5 - 5.0 mmol/L [facility] LABORATORY [...] Anion Gap 11 5 - 15 mmol/L [facility] LABORATORY Calcium 8.5 8.5 - 10.5 mg/dL [facility] LABORATORY Estimated GFR 89 >=60 mL/min/1.73 [...] Organization Address City/State/[place] [address] documented in this encounter [...] area)1953 (MAR Unhold - Provider: Admin Adt) 08 (Given - Provider: Etta contreras RN) 1,000 [...] (Given - Provider: Barbie Joyce RN)1750 ([facility] Hold - Provider: Admin Adt - Reason: Transfer to a Procedural area)1955 ([facility] Unhold - Provider: Admin Adt) [...] Barbie joseph RN - Reason: NPO)1750 ([facility] Hold - Provider: Admin Adt - Reason: Transfer to a Procedural area)1955 ([facility] Unhold - Provider: Admin Adt)2131 [...] (Given - Provider: Barbie Joyce RN)1750 ([facility] Hold - Provider: Admin Adt - Reason: Transfer to a Procedural area)1955 ([facility] Unhold - Provider: Admin Adt) 0816 (Given - Provider: Etta contreras RN) 40 mg, Oral, EVERY EVENING, First dose o n Fri05/16/22 at 0900, Until Discontinued, Routine sodium chloride 0.9 % (flush) (BD PosiFlush Normal Ubaldo ine 0.9) flush 5 mL 09 (Not Given - Provider: Caroline Zamora RN - Reason: Contraindicated)2009 (Given - Provider: Nuris Lester RN) 09 (Not Given - Provider: Barbie Joyce RN - Reason: See comment - Comment: PIV infusing)2099 (Not Given - Provider: Tere Blankenship RN - Reason: Order parameters not met - Comment: infusing) 08 (Given - Provider: Etta contreras RN) 5 mL, Intravenous, 2 TIMES DAILY, First dose on Fri05/15/22 at 2245, Until Discontinued, Recovery (Recovery-Hospital Unit), Routine tamsulosin (Flomax) capsule 0.4 mg 0838 (Given - Provi bre: Caroline Zamora RN) 0853 (Given - Provider: Barbie Joyce RN)175 (J[facility] Hold - Provider: Admin Adt [...] 0853 (Given - Provider: Barbie Joyce RN)175 ([facility] Hold - Provider: Admin Adt [...] 0853 (Given - Provider: Barbie Joyce RN)175 (J[facility] Hold - Provider: Admin Adt [...] DION) 1600 (New Bag - Provider: Barbie Joyce RN)175 ([facility] Hold - Provider: Admin Adt - Reason: Transfer to a Procedural area)1955 (JAN Unhold - Provider: Admin Adt) 0219 (Restarted [...] tablet (CANCELED) 174 (Given - Provider: Flavia Schuler, DION) ONCE [...] Reason: Transfer to a Procedural area)1955 ([facility] Unhold - Provider: Admin Adt) [...] (CANCELED) 1725 (Given - Provider: Flavia Schuler RN)1745 (Given - Provider: Negra Bailey RN) ONCE PRN, Starting on Fri05/20/22 at 172 6, Until Fri05/20/22 at 1842, Cath (Intra-Procedure), Routine iohexoL (Omnipaque) (350 mg/mL) solution (CANCELED) 1840 (Given - Provider: Abundio Servin MD) ONCE PRN, Starting on Fri05/20/22 at 184 1, Until Fri05/20/22 at 1842, Cath (Intra-Procedure), Routine ipratropium-albuteroL (Duoneb) 0.5 mg-3 mg(2.5 mg base)/3 mL nebulizer solution 3 mL 1750 ([facility] Hold - Provider: Dominick armando Adt - Reason: Transfer to a Procedural area)1955 ([facility] Unhold - Provider: Admin Adt) [...] Pr ovider: Emily Sauceda RN) 1750 ([facility] Hold - Provider: Admin Adt - R lexie: Transfer to a Procedural area)1955 ([facility] Unhold - Provider: Admin Adt) [...] Start ing on Fri05/17/22 at 0655, Until 7/12/22 at 1743, Pain, severe pain (7-10)
Initial dose 10mg. If pain control not adequate in 60 minutes, give additional 5mg
Routine documented in this encounter Care Teams Surveillance Monitor Relationship Specialty Start Date End Date Bobby Das MD PCP - General 10/02/[address] [place] [address] [place] [id number] documented as of this encounter
--- OUTSIDE RECORDS SUMMARY | 2022-07-12 09:40 | XMS_ITS | Encounter Summary ---
:1940 [place] [address] Care Team Providers Name Role Phone Bobby Das MD Primary Care Provider Reason for Visit Reason Comments Left Leg Pain Auth/Cert Specialty Diagnoses / Procedures Referred By Contact Refer red To Contact Diagnoses Limb ischemia LLE thrombus Fito Summers MD [facility] [place] [address] Referral ID Status Reason Start Date Expiration Date Visits Requ ested Visits Authorized [id number] 1 1 Encounter Details Date Type Department Care Team Description 05/15/2022 Surgery Main Operating Room Savana Summers se, MD [facility] FEMOROPOSANG, [facility] VASCULAR SURG JULIAN [place] [address] LEG INCISION ([place] [address] 19.48) [phone] Social History Tobacco Use Types Packs/Day Years [...] onset Afib who presents in transfer from [facility] with acute limb ischemia of the [...] emergently went to the OR for L SEWER AND INSPECTOR transverse arteriotomy and primary repair, thromboembolectomy of L SFA/PFA/SEWER AND INSPECTOR, reperfusion venous drainage for 250 cc, [...] Discharge Condition: Good Discharge to: Home with [facility] [address] [address] Future Appointments and Orders Future Appointments and Orders Future Appointments Provider Department Dept Phone 05/23/2022 10:30 AM Loretta Cohen MD Dermatology at [facility] Arrive at: Potato Chip Sacking Machine Operator [address] [place] [address] 06/07/2022 1:30 PM Gail Rae APRN Vascular Surgery at [facility] Arrive at: [employer] Machine Operator Area [phone] 06/13/2022 7:30 AM Edson Lagos [place] Vascular Lab at [facility] Arrive at: Potato Chip Sacking Machine Operator Area [phone] 06/13/2022 8:00 AM Fito Summers MD Vascular Surgery at [facility] Arrive at: Potato Chip Sacking Machine Operator Area 3V [phone] 06/13/2022 10:00 AM Alan Reid MD Cardiology at [facility] Arrive at: Potato Chip Sacking Machine Operator Area 4A [phone] Future Orders Complete By Expires Ziopatch 48 Hrs-15 Days [[id number] CPT(R)] 05/21/2022 11/20/2022 Process Instructions: Scheduling Instructions: Comments: Questions: Does the patient have a pacemaker? If yes provide HI/LO settings: Apply for 7 or 14 days?: 7 Where will study be performed?: [facility] Clinics JOSSELYN, legs, multiple levels [VAS8 Custom] 06/21/2022 (Approximate) 12/21/2022 Process Instructions: There is no in-house vascular lab animal technologist available on weeknights (5pm-8am), weekends, or holidays. IF THIS IS A REQUEST FOR AN EMERGENT STUDY DURING THOSE HOURS, please have the senior provider responsible for the patient page the Vascular Surgery Fellow/Senior Resident stone gluer to discuss options. Scheduling Instructions: Questions: Indication for study/signs & symptoms: ALI s/p L fem cutdown with thromboembolectomy Question to be answered: Perfusion to feet? Please check toe pressure Preferred location?: [facility] Referral to Cardiology [REF12 Custom] As directed [...] [address] [facility] [address] (home) Date of : 1940 Inpatient DOCUMENTATION FOR VNA SERVICES (INCLUDING THOSE PATIENTS WITH MEDICARE COVERAGE REQUIRING HOME VNA SERVICES AND/OR HOSPICE SERVICES) PATIENT'S LOCATION: Koko Zamora [address] [facility] [address] (home) Cell: No relevant phone numbers on file. Section Crews Activities Clerk's Name: Koko In discussion with the attending physician, it is certified that this patient is under their care and that they, or a Nurse Practitioner,Clinical Nurse specialist or Physician Portfolio Manager who is working directly with them, [...] for managing ADL's. HOME HEALTH CARE AGENCY: [facility] [address] [place] [id number] Start of care: Within 24 to 48 [...] obtained from this patient'sPCP: Bobby Das MD [address] [place] [address] / [place] [address] All VNA agencies which cover the [...] For any problems or questions please call [phone] For issues on weeknights after 5pm and weekends please call [phone] and ask for the Vascular Fellow stone gluer. JOSEE Santiago Vascular Surgery 05/21/2022 documented in [...] For any problems or questions please call [phone] For issues on weeknights after 5pm and weekends please call [phone] and ask for the Vascular Fellow stone gluer. documented in this encounter Medications at Time [...] 04/12/20 21 (FLONASE) 50 mcg/actuation Nare route Otis, Suspension daily as needed. fluorouraciL (EFUDEX) 5 [...] onset Afib who presents in transfer from [facility] with acute limb ischemia of the [...] status, full code. JOSEE Santiago 05/21/2022 Pager: [phone] PaBrannon gamino, PT - 05/21/2022 10:35 AM [...] plan as stated. Time IN / OUT: 2894-6142 Total Minutes, Physical Therapy: 25 Billing Code: 2 TA Brannon Isaacs DPT Pager: [phone] Physical Therapy Inpatient Rehabilitation Department [place] Jean [...] Intermediate Cardiac Care Unit [facility] Office Visit from 04/17/2021 in Pain and Spine Center at [facility] Weight 79.8 kg [...] and plan of care per Dr. Mcnamara (hydraulic chair assembler). Please refer to her note above for [...] limb ischemia (thromboembolic) and he is a fpc smoker (1/2 ppd, recommend nicotine patch). His [...] to Hosp-Admission (Current) from 05/15/2022 in 4 [facility] Office Visit from 04/17/2021 in Pain and Spine Center at [facility] Weight 79.8 kg [...] findings andplan of care per Dr. Mcnamara (hydraulic chair assembler). Please refer to her note above for [...] a mitral repair in 2000 (not at [facility]) with no CAD [...] AF and the first documented HR at [facility] was 125 bpm [...] onset Afib who presents in transfer from [facility] with acute limb ischemia of the [...] management following Dottie Hill APRN 05/20/2022 Pager: [phone] Laney Atkins RN - 05/20/2022 1:14 AM EDT Pt Koko transferred to room from [facility]. A&Ox4, oriented to room and call boo. Masimo and telemetry placed. In agreement with assessment as documented this evening by Nuris ASHLEY. No complaints at this time. Pt aware of NPO status and plan for cardiac cath in AM. Urinal provided. Resting comfortably in bed. Nuris Lester RN - 05/20/2022 1:09 AM EDT Pt. Transferred to [facility]. RN accompanied patient to floor and handed off to [facility] RN Dottie Hill APRN - 05/19/2022 10:02 AM EDT Vascular Surgery Progress Note Koko Zamora is a 81 y.o. male with w new onset Afib who presents in transfer from [facility] with acute limb ischemia of the [...] management following Dottie Hill APRN 05/19/2022 Pager: [phone] Emily Sauceda RN - 05/19/2022 6:28 AM EDT OUTCOME EVALUATION NOTE: OUTCOME SUMMARY: Patient AOx4, VSS on RA. Afib on tele. HR controlled w/ PRN metop, given x2. Denies CP, SOB, n/v. See flowsheets for NVC. Dressings to LLE CDI, prevena [place] to groin intact. Voiding to urinal. LBM MUD CLEANER OPERATOR, patient stating he will maybe try the [...] adequately without difficulty to bedside urinal. LBM MUD CLEANER OPERATOR. Up to chair this AM with nursing staff. Worked with PT, tolerated well. Diet changed to regular at 1800.Plan is for cardiac cath on Friday. PLAN MOVING FORWARD: Bleeding precautions Pain management neurovascular checks PT/OT dentures lab technician INDIVIDUALIZED FALL PREVENTION INTERVENTIONS: Patient-specific [...] onset Afib who presents in transfer from [facility] with acute limb ischemia of the [...] mL Intravenous BID ??? PHENobarbitaL 0.12 mg/kg/dose ([place]) Oral BID ??? thiamine 100 mg Oral [...] management following Dottie Hill APRN 05/18/2022 Pager: [phone] Brannon Isaacs, PT - 05/18/2022 10:00 AM [...] Biopsy Spine 07/20/2019 Bobby Marshall MD [facility] INTERVENTIONL RAD ??? IR VERTEBROPLASTY LUMBAR MULTIPLE LEVELS 07/20/2019 IR Vertebroplasty Lumbar Multiple Levels 07/20/2019 Bobby Marshall MD [facility] INTERVENTIONL RAD ??? IR VERTEBROPLASTY THORACIC SINGLE LEVEL 10/25/2020 IR Vertebroplasty Thoracic Single Level 10/25/2020 Matt Chisholm MD [facility] INTERVENTIONL RAD ??? PRO EMBLC/THRMBC FEMORAL POPLITEAL AORTO-ILIAC ARTERY Left 05/15/2022 EMBOLECTOMY OR THROMBECTOMY, FEMOROPOPLITEAL, AORTOILIAC ARTERY BY LEG INCISION (WRVU 19.48) performed by Fito Summers MD at [facility] MAIN OR Social History: Pt lives [...] in this evaluation. Time IN / OUT: 6313-5303 Total Minutes, Physical Therapy: 30 Billing Code: Basilio Isaacs, PT Pager: [phone] Physical Therapy Inpatient Rehabilitation Department Emily Sauceda RN - 05/18/2022 4:34 AM EDT OUTCOME EVALUATION NOTE: OUTCOME SUMMARY: Patient AOx4, VSS on 2LNC. Afib on tele. HR above 120, MD aware, PRN IV metop given x1, HR returned to 90's-low 100's. Denies CP, SOB, n/v. See flowsheets for NVC. Dressings to LLE CDI, prevena WV to groin intact. Voiding to urinal. LBM MUD CLEANER OPERATOR. Heparin gtt therapeutic. Pain controlled. Patient sleeping [...] adequately without difficulty to bedside urinal. LBM MUD CLEANER OPERATOR. Patient not OOB this shift. 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 PLAN MOVING FORWARD: Bleeding precautions Pain management neurovascular checks PT/OT NPO for mill labor supervisor INDIVIDUALIZED FALL PREVENTION INTERVENTIONS: Patient-specific fall [...] the Emergency Department as a transfer from [facility] with left lower extremity limb ischemia. He went to [facility] and was startedon heparin and [...] he will will be going to the mill labor supervisor for evaluation. Will defer PT eval at present but will see as ordered post cardiac catheritizaton. Social Hx:Pt lives with his Ursula in [place], [place] in a 2 level home in [...] WBAT LLE LISBET HERMAN PT Pager # [phone] In-Pt Rehab Medicine Dottie Hill APRN - 05/17/2022 7:42 AM EDT Vascular Surgery Progress Note Koko Zamora is a 81 y.o. male with w new onset Afib who presents in transfer from [facility] with acute limb ischemia of the [...] mL Intravenous BID ??? PHENobarbitaL 0.24 mg/kg/dose ([place]) Oral BID Followed by ??? [START ON 05/18/2022] PHENobarbitaL 0.12 mg/kg/dose ([place]) Oral BID ??? thiamine 100 mg Oral [...] management following Dottie Hill APRN 05/17/2022 Pager: [phone] Sary Dos Santos, RN - 05/17/2022 12:16 [...] onset Afib who presents in transfer from [facility] with acute limb ischemia of the [...] mL Intravenous BID ??? PHENobarbitaL 0.48 mg/kg/dose ([place]) Oral BID Followed by ??? [START ON 05/17/2022] PHENobarbitaL 0.24 mg/kg/dose ([place]) Oral BID Followed by ??? [START ON 05/18/2022] PHENobarbitaL 0.12 mg/kg/dose ([place]) Oral BID ??? thiamine 100 mg Oral [...] management following Edward Rodríguez MD 05/16/2022 Pager: [phone] Sary Dos Santos RN - 05/16/2022 12:52 [...] 2129 Hand off to DION Ramirez 3 ware documented in this encounter H&P Notes eKrry Mcnamara MD - 05/20/2022 8:30 AM EDT [...] onset Afib who presents in transfer from [facility] with acute limb ischemia of the [...] Biopsy Spine 07/20/2019 Bobby Marshall MD [facility] INTERVENTIONL RAD ??? IR VERTEBROPLASTY LUMBAR MULTIPLE LEVELS 07/20/2019 IR Vertebroplasty Lumbar Multiple Levels 07/20/2019 Bobby Marshall MD [facility] INTERVENTIONL RAD ??? IR VERTEBROPLASTY THORACIC SINGLE LEVEL 10/25/2020 IR Vertebroplasty Thoracic Single Level 10/25/2020 Matt Chisholm MD [facility] INTERVENTIONL RAD Social Hx: Social History [...] Refill ??? fluticasone propionate (FLONASE) 50 mcg/actuation Otis, Suspension as needed. ??? fluorouraciL (EFUDEX) 5 [...] and consented. Tim Chicas MD 05/15/2022 Pager: [phone] documented in this encounter ED Notes Lc Harris PA - 05/15/2022 1:20 PM EDT ED Provider Note HPI: Koko Zamora is a 81 y.o. male with history of atrial fibrillation not on anticoagulation, and GI bleeding who presents to the Emergency Department as a transfer from [facility] with left lower extremity limb ischemia. Patient says that the symptoms started roughly 630 this morning when he developed severe pain in his left lower extremity. He went to [facility] and was started on heparin [...] lower extremity earlier today and went to [facility] where it was determined that he had ischemia of the left lower extremity. Vascular surgery [facility] was contacted and he was transferred here [...] orders before pt. Arrival. Pt. Arrived at [facility] by EMS at [...] in an outpatient cardiac rehabilitation program at [facility] was discussed. Patient agrees to a referral to this program. Timing will depend on his recovery from Vascular surgery. He is going home w/VNA PT. I gave him the brochure for the program at [facility] for future reference. Care Management Discharge [...] information for follow-up [facility], [place] [address] [place] [address] Transportation: family or friend will provide Functional [...] Type: *No Product type* / Secondary Insurance: [facility] Prescription Coverage: Yes This plan was formulated with input from patient and team. All are in agreement with plan. [facility] for [facility] IMM. Shawn (Satish) DION López RN/CM - Cellphone: [phone] Pager: [phone] Covering Service RN/CM Plan of Care - [...] catheterization, transferred in hospital bed accompanied by Website Project Manager RN, remains on telemetry monitoring. Heparin [...] Type: *No Product type* / Secondary Insurance: [facility] Last Physical Therapy Recommendation: home with home health, home with supervision with None Last Occupational Therapy Recommendation: with Plan for discharge is: Home w/ Services Outpatient Agency/Support Group Needs: None Home Health Services: Registered Nurse, Physical Therapy, Occupational Therapy Agency Referrals: I have met with the patient to: ?? discuss discharge planning needs. ?? provide the [facility], Office of Care Management letter from the Branch Associate Teller pertaining to rehab referrals. ?? provide a letter describing our affiliations within the [facility] and educate about their right to choose where referrals are sent. ?? provide a list of Home Health Agencies / Durable Medical Equipment vendors which serve their preferred geographic area. ?? provided patient with [facility] Star Quality Rating handout. They have requested referrals to: [facility] [address] [place] [address] Note routed to a Health Care / Medical Job Titles who will communicate referrals to facilities and provide any required information. Transportation: family or friend will provide Barriers to discharge: None Plan going forward: Patient is going for a cardiac cath today and plan will come from there. Patientwas recently seen by PT and they recommend VNA at time of discharge. [facility] was routed and pendedat this time. Care Management will continue to follow and assist with discharge planning and coordination of care as indicated. Anticipated Date of Discharge: 05/21/2022 Nataly RICHMOND RN Phone: [phone] Pager: [phone] Plan of Care - Laney Atkins RN [...] original note were not included. [facility] [place] [address] [address] INPATIENT CARDIOLOGY CONSULT NOTE Date of Consultation: 05/17/2022 Admit Date: 05/15/2022 Hospital Day 2 days Reason for Consult: New afib Active Problems: Active Hospital Problems Diagnosis Limb ischemia Resolved Hospital Problems No resolved problems to display. HPI: Koko Zamora is a 81 y.o. male with a PMHx significant for MVP (s/p MV repair 2000), tobacco use, HLD, who presented to [facility] from OSH on 05/15 with acute limb ischemia of LLE and was found to be in atrial fibrillation. Patient had sudden onset LLE pain on 05/15 and presented to [facility], where he was started on heparin and transferred to [facility]. Upon arrival to [facility], patient was in [...] Biopsy Spine 07/20/2019 Bobby Marshall MD [facility] INTERVENTIONL RAD IR VERTEBROPLASTY LUMBAR MULTIPLE LEVELS 07/20/2019 IR Vertebroplasty Lumbar Multiple Levels 07/20/2019 Bobby Marshall MD [facility] INTERVENTIONL RAD IR VERTEBROPLASTY THORACIC SINGLE LEVEL 10/25/2020 IR Vertebroplasty Thoracic Single Level 10/25/2020 Matt Chisholm MD [facility] INTERVENTIONL RAD PRO EMBLC/THRMBC FEMORAL POPLITEAL AORTO-ILIAC ARTERY Left 05/15/2022 EMBOLECTOMY OR THROMBECTOMY, FEMOROPOPLITEAL, AORTOILIAC ARTERY BY LEG INCISION (WRVU 19.48) performed by Fito Summers MD at [facility] MAIN OR Allergies Allergen Reactions Aspirin Other (See Comments) GI bleed Out-Patient Medications: Medications Prior to Admission Medication Sig Dispense Refill Last Dose fluorouraciL (EFUDEX) 5 % Cream daily. CRESTOR 40 mg Tablet Take 40 mg by mouth daily. fluticasone propionate (FLONASE) 50 mcg/actuation Otis, Suspension as needed. ascorbic acid, vitamin C, [...] 5 mL Intravenous BID PHENobarbitaL 0.24 mg/kg/dose ([place]) Oral BID Followed by [START ON 05/18/2022] PHENobarbitaL 0.12 mg/kg/dose ([place]) Oral BID thiamine 100 mg Oral Daily folic acid 1,000 mcg Oral Daily multivitamin with minerals 1 tablet Oral Daily heparin (porcine) infusion 1,200 Units/hr (05/17/22 5313) Family History: No family history on file. [...] to Hosp-Admission (Current) from 05/15/2022 in 3 [facility] Office Visit from 04/17/2021 in Pain and Spine Center at [facility] Weight 79.8 kg [...] continue to follow Anne-Marie Larson MD Pager [phone] Clinic: [phone] 05/17/22 6:22 PM Initial Assessments - Ifrah [...] spouse would be surrogate decision maker per [place] surrogate decision making law. (Only good for 180 days) Any patient receiving care at [facility] must abide by [place] law. The hierarchy for surrogate decision making [...] raised toilet seat Home Address confirmed as: [address] [place] [phone] Social & Family Supports: All names listed below confirmed with patient as Incorrect. Will notify toni to correct. Wifes address is same as and phone is [phone]. Extended Emergency Contact Information Primary Emergency Contact: Ursula Zamora Address: [address] [place] [address] [address] [place] [address] [facility] Relation: Spouse Current Care Provided by: self [...] Type: *No Product type* / Secondary Insurance: [facility] Prescription Coverage: Yes Preferred Pharmacy: [id number] - [place], [place] - [address] [facility] [address] [facility] [address] [facility] - [place], [place] - [address] [facility] [address] [facility] [address] [place] Status: Patient is a : unable to assess Primary Care Provider: Bobby Das MD [phone] Patient/Caregiver Goals of Treatment: to walk again Potential Needs for Transition of Care: none noted per 05/16 IDR Transportation: family will provide Transportation Anticipated: family or friend will provide Concerns to be Addressed: no discharge needs identified Assessment: Patient is admitted to vascular surg service for left lower extremity limb ischemia Plan: Per PT OT recommendations . Has used [facility] in the past. A member of the Care Management team will continue to monitor progress, follow for continuity of care and assist with transition of care planning. Ifrah Bell RN BSN Infantry Indirect Fire CrewmemberTugboat Dispatcher of Care Management Pager [phone] Brief Op Note - Erin Garza MD - 05/15/2022 5:04 PM EDT Brief Operative Note Patient Name: Koko Zamora : [id number] MR#: [id number] Case Date: 05/15/2022 Surgeon: Surgeon(s) and Role: [...] Garza MD - 05/15/2022 2:08 PM EDT [facility] Operative Note Patient Name: Koko Zamora : [id number] MR#: [id number] Case Date: 05/15/2022 Surgeon: Surgeon(s) and Role: [...] Gastroenterology Negra Collins MD [facility] GASTROENTEROLOGY DEPT [place], [place] 0[address] (Wo rk) 09/05/2022 Appointment Cardiology Trinity Reid MD [facility] CARDIOLOGY [place], [place] 0375 (Wo rk) 09/05/2022 Office Visit Cardiology Trinity Reid MD [facility] CARDIOLOGY [place], [place] 0375 (Wo rk) [...] Component Value Ref Test Analysis Performed At [facility] Range Method Time Signature VB Text Department: Vascular Surgery Lab VASCUBASE Report Patient: [id number] (KOKO ZAMORA) CPT: 18430 Referring Physician: FITO SUMMERS ?? Phone: Indications: s/p L SEWER AND INSPECTOR endart. Diabetes mellitus: no Findings: Right [...] P athologist Signature Heparin UFH 0.42 IU/mL [facility] LABORATORY Comment: [...] Organization Address City/State/[place] [address] Differential, Automated (05/21/2022 6:15 AM EDT) P athologist Signature Neutrophils % 58.8 % [facility] LABORATORY Neutr Abs (ANC) 3.97 1.70 - [facility] 6.10 [facility] x10(3)/[facility] LABORATORY Lymphocytes % 25.2 % [facility] LABORATORY Lymphocytes Abs 1.7 0.9 - 3.2 [facility] x10(3)/[facility] LABORATORY Monocytes % 12.9 % [facility] LABORATORY Monocyte Abs 0.9 0.3 - 0.9 [facility] x10(3)/[facility] LABORATORY Eosinophils % 2.1 % [facility] LABORATORY Eosinophils Abs 0.1 0.0 - 0.4 [facility] x10(3)/[facility] LABORATORY Basophils % 0.4 % [facility] LABORATORY Basophils Abs 0.0 0.0 - 0.1 [facility] x10(3)[facility] LABORATORY Immature Gran % 0.60 % [facility] LABORATORY Comment: Immature granulocytes(IG's)percentage an d absolute count will include metamyelocytes, myelocytes, and promyelo cytes. Blood smears from CBCs yielding IG's will be scanned manually for concor dance. If this scan disagrees with the automated IG or if promyelocytes are not ed, a manual differential will be performed. Rain Gran Abs 0.04 0.00 - 0.04 x10(3)/[facility] LABORATORY Specimen Anatomical Collection Method Collection Time Receive d Time (Source) Location / / Volume Laterality Blood 05/21/2022 6:15 AM 2 6:38 EDT AM EDT Resulting Agency Comment Spec In Lab Edward Rodríguez MD HEMATOLOGY ORDERABLES Performing Organization Address City/State/[place] [address] (ABNORMAL) Hemogram (05/21/2022 6:15 AM EDT) [facility] gist Method Time Signature WBC 6.8 4.0 - 9.5 [facility] x10(3)/[facility] LABORATORY RBC 3.59 (L) 4.58 - [facility] 5.54 [facility] x10(6)/[facility] LABORATORY Hemoglobin 11.8 (L) 13.7 - [facility] 16.5 g/dL [facility] LABORATORY Hematocrit 34.5 (L) 40.5 - [facility] 48.5 % [facility] LABORATORY MCV 96.1 (H) 82.9 - [facility] 93.1 [facility] LABORATORY MCH 32.9 (H) 27.5 - [facility] 32.1 pg [facility] LABORATORY MCHC 34.2 32.0 - [facility] 35.7 g/dL [facility] LABORATORY Platelets 198 145 - 357 [facility] x10(3)/[facility] LABORATORY RDWSD 44.9 36.0 - [facility] 45.0 [facility] LABORATORY RDWCV 12.6 11.4 - [facility] 13.8 % [facility] LABORATORY MPV 10.0 7.6 - 12.9 [facility] LABORATORY nRBC % Auto 0.3 % [facility] LABORATORY nRBC Abs Auto 0.020 (H) 0.000 - [facility] 0.000 [facility] x10(3)/[facility] LABORATORY Specimen Anatomical Collection Method Collection Time Receive d Time (Source) Location / / Volume Laterality Blood 05/21/2022 6:15 AM 2 6:38 EDT AM EDT Resulting Agency Comment Spec In Lab Edward Rodríguez MD HEMATOLOGY ORDERABLES Performing Organization Address City/State/[place] [address] EKG 12 Lead (05/20/2022 7:04 PM EDT) Component Value Ref Range Test Analysis Performed Pathologis t Method Time At Signature Ventricular rate 101 BPM MUSE SYSTEM QRS Duration 116 ms MUSE SYSTEM Q-T Interval 378 ms MUSE SYSTEM QTC Calculated 490 ms MUSE SYSTEM (Bezet) Calculated R [place] -53 degrees MUSE SYSTEM Calculated T [place] 101 degrees MUSE SYSTEM INTERPRETATION Atrial fibrillation [...] Laterality Volume Narrative 05/20/2022 7:09 PM EDT ?[facility] ? Cardiac Cathete rization/Intervention Report ? Patient Name: Koko Zamora. ? Procedure Date: 05/20/2022 ? A #: [id number] ? Primary Physician: Abundio Servin ? Case #: [id number] ? File Name: [id number] ? Catheterization Order Number: [id number] ? [facility] ? Final Report [place], [place] ? Patient Name: ? Koko J. Klarissa uson ? ID#: ?[id number] ? : ?1940 ? Procedure Date: ? [...] procedure was Urgent. The indication for ?the mill labor supervisor visit is cardiomyo nita. Chest pain symptom [...] stent insertion were ?performed and the equipment myriam trimble be described in the ?intervention summary section. [...] ?3.5 guiding catheter and a 3.5 [address] [facility] [address] [address] ??20 Mhz. ??Imaging ?was successful. ??Image [...] 1. Lesion length was ? 25mm. The noah n involves a bifurcation with the LCX. [...] A premounted 2. 75 x 30 mm [place] (AMPARO) was deployed ? with a maximum [...] require ?modification of this regimen. C onsult [facility] Interventional Cardiology for [...] 123 65 - 199 [facility] mg/dL [facility] LABORATORY Comment: Supplemental ranges: <140 mg/dL before meals <180 mg/dL all other times of the day Specimen Anatomical Collection Method Collection Time Receive d Time (Source) Location / / Volume Laterality Blood 05/20/2022 5:42 PM 5:42 EDT PM EDT Fito Summers MD POINT OF CARE TEST ORDERABLE S Performing Organization Address City/State/[place] [address] (ABNORMAL) BMP w/fasting Glucose (05/20/2022 10:50 AM EDT) P athologist Signature Glucose 152 (H) 65 - 99 [facility] Fasting mg/dL [facility] LABORATORY Comment: ?Fasting* Glucose Interpretive C [...] of Diabetes Mellitus, Position Statement from the [place] [employer]. ??Diabete s Care, Volume 33, Supplement 1, Nov 2009 BUN 11 10 - 20 mg/dL [facility] LABORATORY Creatinine 0.63 (L) 0.80 - 1.50 mg/dL [facility] LABORATORY Sodium 137 135 - [...] Organization Address City/State/[place] [address] Heparin (unfractionated) Level (05/20/2022 5:02 AM EDT) P athologist Signature Heparin UFH 0.57 IU/mL [facility] LABORATORY Comment: [...] Organization Address City/State/ZIP Code Phon e Number [place] [phone] HOSPITAL LABORATORY Drive (ABNORMAL) Differential, Automated (05/20/2022 5:02 AM EDT) [facility] Method Time Signature Neutrophils % 58.1 % [facility] LABORATORY Neutr Abs (ANC) 4.52 1.70 - [facility] 6.10 [facility] x10(3)/[facility] LABORATORY Lymphocytes % 24.1 % [facility] LABORATORY Lymphocytes Abs 1.9 0.9 - 3.2 [facility] x10(3)/[facility] LABORATORY Monocytes % 13.8 % [facility] LABORATORY Monocyte Abs 1.1 (H) 0.3 - 0.9 [facility] x10(3)/[facility] LABORATORY Eosinophils % 2.6 % [facility] LABORATORY Eosinophils Abs 0.2 0.0 - 0.4 [facility] x10(3)/[facility] LABORATORY Basophils % 0.8 % [facility] LABORATORY Basophils Abs 0.1 0.0 - 0.1 [facility] x10(3)/[facility] LABORATORY Immature Gran % 0.60 % [facility] LABORATORY Comment: Immature granulocytes(IG's)percentage an d absolute count will include metamyelocytes, myelocytes, and promyelo cytes. Blood smears from CBCs yielding IG's will be scanned manually for tracy armstrong. If this scan disagrees with the automated IG or if promyelocytes are not ed, a manual differential will be performed. Rain Gran Abs 0.05 (H) 0.00 - 0.04 x10(3)/[facility] LABORATORY Specimen Anatomical Collection Method Collection Time Receive d Time (Source) Location / / Volume Laterality Blood 05/20/2022 5:02 AM 5:19 EDT AM EDT Resulting Agency Comment Spec In Lab Edward Rodríguez MD HEMATOLOGY ORDERABLES Performing Organization Address City/State/ZIP Code Phon e Number [place] [phone] HOSPITAL LABORATORY Drive (ABNORMAL) Hemogram (05/20/2022 5:02 AM EDT) Analysis Performed At Patho logist Time Signature WBC 7.8 4.0 - 9.5 [facility] x[facility](3[facility] LABORATORY RBC 3.53 (L) 4.58 - [facility] 5.54 [facility] x10(6)/[facility] LABORATORY Hemoglobin 11.4 (L) 13.7 - [facility] 16.5 g/dL [facility] LABORATORY Hematocrit 34.3 (L) 40.5 - [facility] 48.5 % [facility] LABORATORY MCV 97.2 (H) 82.9 - [facility] 93.1 [facility] LABORATORY MCH 32.3 (H) 27.5 - [facility] 32.1 pg [facility] LABORATORY MCHC 33.2 32.0 - [facility] 35.7 g/dL [facility] LABORATORY Platelets 181 145 - 357 [facility] x10(3)/[facility] LABORATORY RDWSD 46.4 (H) 36.0 - [facility] 45.0 [facility] LABORATORY RDWCV 13.0 11.4 - [facility] 13.8 % [facility] LABORATORY MPV 10.4 7.6 - 12.9 [facility] LABORATORY nRBC % Auto 0.0 % [facility] LABORATORY nRBC Abs Auto 0.000 0.000 - [facility] 0.000 [facility] x10(3)/[facility] LABORATORY Specimen Anatomical Collection Method Collection Time Receive d Time (Source) Location / / Volume Laterality Blood 05/20/2022 5:02 AM 2 5:19 EDT AM EDT Resulting Agency Comment Spec In Lab Edward Rodríguez MD HEMATOLOGY ORDERABLES Performing Organization Address City/[facility]/ZIP Code Phon e Number [address] Heparin (unfractionated) Level (05/19/2022 3:26 AM EDT) P athologist Signature Heparin UFH 0.59 IU/mL [facility] LABORATORY Comment: [...] Organization Address City/State/ZIP Code Phon e Number [address] (ABNORMAL) Differential, Automated (05/19/2022 3:26 AM EDT) Patholo gist Method Time Signature Neutrophils % 62.1 % [facility] LABORATORY Neutr Abs (ANC) 4.59 1.70 - [facility] 6.10 [facility] x10(3)/[facility] LABORATORY Lymphocytes % 22.1 % [facility] LABORATORY Lymphocytes Abs 1.6 0.9 - 3.2 [facility] x10(3)/[facility] LABORATORY Monocytes % 13.5 % [facility] LABORATORY Monocyte Abs 1.0 (H) 0.3 - 0.9 [facility] x10(3)/[facility] LABORATORY Eosinophils % 1.3 % [facility] LABORATORY Eosinophils Abs 0.1 0.0 - 0.4 [facility] x10(3)/[facility] LABORATORY Basophils % 0.5 % [facility] LABORATORY Basophils Abs 0.0 0.0 - 0.1 [facility] x10(3)/[facility] LABORATORY Immature Gran % 0.50 % [facility] LABORATORY Comment: Immature granulocytes(IG's)percentage an d absolute count will include metamyelocytes, myelocytes, and promyelo cytes. Blood smears from CBCs yielding IG's will be scanned manually for concor dance. If this scan disagrees with the automated IG or if promyelocytes are not ed, a manual differential will be performed. Rain Gran Abs 0.04 0.00 - 0.04 x10(3)/[facility] LABORATORY Specimen Anatomical Collection Method Collection Time Receive d Time (Source) Location / / Volume Laterality Blood 05/19/2022 3:26 AM 2 3:59 EDT AM EDT Resulting Agency Comment Spec In Lab Edward Rodríguez MD HEMATOLOGY ORDERABLES Performing Organization Address City/State/[place] [address] (ABNORMAL) Hemogram (05/19/2022 3:26 AM EDT) Analysis Performed At Patho logist Time Signature WBC 7.4 4.0 - 9.5 [facility] x10(3)/[facility] LABORATORY RBC 3.74 (L) 4.58 - [facility] 5.54 [facility] x10(6)/[facility] LABORATORY Hemoglobin 12.1 (L) 13.7 - [facility] 16.5 g/dL [facility] LABORATORY Hematocrit 36.4 (L) 40.5 - [facility] [place] 48.5 % [facility] LABORATORY MCV 97.3 (H) 82.9 - [facility] [place] 93.1 [facility] LABORATORY MCH 32.4 (H) 27.5 - [place] [place] 32.1 pg [facility] LABORATORY MCHC 33.2 32.0 - [facility] [place] 35.7 g/dL [facility] LABORATORY Platelets 168 145 - 357 [facility] [place] x10(3)/[facility] LABORATORY RDWSD 46.9 (H) 36.0 - [place] [place] 45.0 [facility] LABORATORY RDWCV 13.0 11.4 - [facility] [place] 13.8 % [facility] LABORATORY MPV 10.5 7.6 - 12.9 [facility] [place] [facility] LABORATORY nRBC % Auto 0.0 % [facility] LABORATORY nRBC Abs Auto 0.000 0.000 - [facility] 0.000 [facility] x10(3)/[facility] LABORATORY Specimen Anatomical Collection Method Collection Time Receive d Time (Source) Location / / Volume Laterality Blood 05/19/2022 3:26 AM 2 3:59 EDT AM EDT Resulting Agency Comment Spec In Lab Edward Rodríguez MD HEMATOLOGY ORDERABLES Performing Organization Address City/State/[place] [address] TSH (05/18/2022 8:00 PM EDT) P athologist Signature TSH 2.27 0.27 - 4.20 [facility] [place] mcIU/mL [facility] LABORATORY Comment: Reference Interval (mcIU/mL): Females: ??First Trimester: 0.23-3.88 ??Second Trimester: 0.22-3.90 ??Third Trimester: 0.44-4.66 Specimen Anatomical Collection Method Collection Time Receive d Time (Source) Location / / Volume Laterality Blood 05/18/2022 8:00 PM 2 8:06 EDT PM EDT Resulting Agency Comment Spec In Lab Fito Summers MD CHEMISTRY ORDERABLES Performing Organization Address City/State/[place] [address] (ABNORMAL) Differential, Automated (05/18/2022 3:34 AM EDT) [facility] gist Method Time Signature Neutrophils % 67.2 % [facility] LABORATORY Neutr Abs (ANC) 5.89 1.70 - [facility] 6.10 [facility] x10(3)/[facility] LABORATORY Lymphocytes % 17.1 % [facility] LABORATORY Lymphocytes Abs 1.5 0.9 - 3.2 [facility] x10(3)/[facility] LABORATORY Monocytes % 13.6 % [facility] LABORATORY Monocyte Abs 1.2 (H) 0.3 - 0.9 [facility] x10(3)/[facility] LABORATORY Eosinophils % 1.0 % [facility] LABORATORY Eosinophils Abs 0.1 0.0 - 0.4 [facility] x10(3)/[facility] LABORATORY Basophils % 0.6 % [facility] LABORATORY Basophils Abs 0.0 0.0 - 0.1 [facility] x10(3)/[facility] LABORATORY Immature Gran % 0.50 % [facility] LABORATORY Comment: Immature granulocytes(IG's)percentage an d absolute count will include metamyelocytes, myelocytes, and promyelo cytes. Blood smears from CBCs yielding IG's will be scanned manually for concor dance. If this scan disagrees with the automated IG or if promyelocytes are not ed, a manual differential will be performed. Rain Gran Abs 0.04 0.00 - 0.04 x10(3)/[facility] LABORATORY Specimen Anatomical Collection Method Collection Time Receive d Time (Source) Location / / Volume Laterality Blood 05/18/2022 3:34 AM 3:48 EDT AM EDT Resulting Agency Comment Spec In Lab Edward Rodríguez MD HEMATOLOGY ORDERABLES Performing Organization Address City/State/[place] [address] (ABNORMAL) Hemogram (05/18/2022 3:34 AM EDT) Analysis Performed At Patho logist Time Signature WBC 8.8 4.0 - 9.5 [facility] x10(3)/[facility] LABORATORY RBC 3.45 (L) 4.58 - [facility] 5.54 [facility] x10(6)/[facility] LABORATORY Hemoglobin 11.2 (L) 13.7 - [facility] 16.5 g/dL [facility] LABORATORY Hematocrit 33.0 (L) 40.5 - [facility] 48.5 % [facility] LABORATORY MCV 95.7 (H) 82.9 - [facility] 93.1 [facility] LABORATORY MCH 32.5 (H) 27.5 - [facility] 32.1 pg [facility] LABORATORY MCHC 33.9 32.0 - [facility] 35.7 g/dL [facility] LABORATORY Platelets 130 (L) 145 - 357 [facility] x10(3)/[facility] LABORATORY RDWSD 46.2 (H) 36.0 - [facility] 45.0 [facility] LABORATORY RDWCV 13.2 11.4 - [facility] 13.8 % [facility] LABORATORY MPV 10.8 7.6 - 12.9 [facility] LABORATORY nRBC % Auto 0.0 % [facility] LABORATORY nRBC Abs Auto 0.000 0.000 - [facility] 0.000 [facility] x10(3)/[facility] LABORATORY Specimen Anatomical Collection Method Collection Time Receive d Time (Source) Location / / Volume Laterality Blood 05/18/2022 3:34 AM 3:48 EDT AM EDT Resulting Agency Comment Spec In Lab Edward Rodríguez MD HEMATOLOGY ORDERABLES Performing Organization Address City/State/[place] [address] Heparin (unfractionated) Level (05/18/2022 3:34 AM EDT) P athologist Signature Heparin UFH 0.59 IU/mL [facility] LABORATORY Comment: [...] Summers MD HEMATOLOGY ORDERABLES Performing Organization Address City/[facility]/ZIP Code Phon e Number [address] Magnesium (05/17/2022 3:33 AM EDT) athologist Signature Magnesium 0.76 0.69 - 1.07 [facility] mmol/L [facility] LABORATORY Specimen Anatomical Collection Method Collection Time Receive d Time (Source) Location / / Volume Laterality Blood Venous Draw / 05/17/2022 3:33 AM 05/17/20 22 4:05 Unknown EDT AM EDT Resulting Agency Comment Spec In Lab Dottie Hill APRN CHEMISTRY ORDERABLES Performing Organization Address City/[facility]/[place] [address] (ABNORMAL) Basic Metabolic Panel (non-fasting) (05/17/2022 3:33 AM EDT) athologist Signature Glucose Lvl 158 65 - 199 [facility] mg/dL [facility] LABORATORY Comment: Diabetes: >=200 mg/dL plus symp toms BUN 12 10 - 20 mg/dL [facility] LABORATORY Creatinine 0.74 (L) 0.80 - 1.50 mg/dL [facility] LABORATORY Sodium 137 135 - [...] Chloride 102 98 - 107 mmol/L [facility] LABORATORY CO2 25 22 - 31 mmol/L [facility] LABORATORY Anion Gap 10 5 - 15 mmol/L [facility] LABORATORY Calcium 8.4 (L) 8.5 - 10.5 mg/dL [facility] LABORATORY Estimated GFR 92 >=60 mL/min/1.73 m?? [facility] [...] Organization Address City/State/[place] [address] (ABNORMAL) Differential, Automated (05/17/2022 3:33 AM EDT) [facility] Method Time Signature Neutrophils % 65.5 % [facility] LABORATORY Neutr Abs (ANC) 6.84 (H) 1.70 - [facility] 6.10 [facility] x10(3)/[facility] LABORATORY Lymphocytes % 19.7 % [facility] LABORATORY Lymphocytes Abs 2.1 0.9 - 3.2 [facility] x10(3)/[facility] LABORATORY Monocytes % 13.1 % [facility] LABORATORY Monocyte Abs 1.4 (H) 0.3 - 0.9 [facility] x10(3)/[facility] LABORATORY Eosinophils % 0.6 % [facility] LABORATORY Eosinophils Abs 0.1 0.0 - 0.4 [facility] x10(3)/[facility] LABORATORY Basophils % 0.6 % [facility] LABORATORY Basophils Abs 0.1 0.0 - 0.1 [facility] x10(3)/[facility] LABORATORY Immature Gran % 0.50 % [facility] LABORATORY Comment: Immature granulocytes(IG's)percentage an d absolute count will include metamyelocytes, myelocytes, and promyelo cytes. Blood smears from CBCs yielding IG's will be scanned manually for concor dance. If this scan disagrees with the automated IG or if promyelocytes are not ed, a manual differential will be performed. Rain Gran Abs 0.05 (H) 0.00 - 0.04 x10(3)/[facility] LABORATORY Specimen Anatomical Collection Method Collection Time Receive d Time (Source) Location / / Volume Laterality Blood 05/17/2022 3:33 AM 3:53 EDT AM EDT Resulting Agency Comment Spec In Lab Edward Rodríguez MD HEMATOLOGY ORDERABLES Performing Organization Address City/State/[place] [address] (ABNORMAL) Hemogram (05/17/2022 3:33 AM EDT) Analysis Performed At Patho logist Time Signature WBC 10.4 (H) 4.0 - 9.5 [facility] x10(3)/[facility] LABORATORY RBC 3.72 (L) 4.58 - [facility] 5.54 [facility] x10(6)/[facility] LABORATORY Hemoglobin 12.0 (L) 13.7 - [facility] 16.5 g/dL [facility] LABORATORY Hematocrit 36.4 (L) 40.5 - [facility] 48.5 % [facility] LABORATORY MCV 97.8 (H) 82.9 - [facility] 93.1 [facility] LABORATORY MCH 32.3 (H) 27.5 - [facility] [place] 32.1 pg [facility] LABORATORY MCHC 33.0 32.0 - [facility] [place] 35.7 g/dL [facility] LABORATORY Platelets 149 145 - 357 [facility] x10(3)/[facility] LABORATORY RDWSD 48.7 (H) 36.0 - [facility] [place] 45.0 [facility] LABORATORY RDWCV 13.5 11.4 - [facility] 13.8 % [facility] LABORATORY MPV 10.6 7.6 - 12.9 [facility] LABORATORY nRBC % Auto 0.0 % [facility] LABORATORY nRBC Abs Auto 0.000 0.000 - [facility] 0.000 [facility] x10(3)/[facility] LABORATORY Specimen Anatomical Collection Method Collection Time Receive d Time (Source) Location / / Volume Laterality Blood 05/17/2022 3:33 AM 3:53 EDT AM EDT Resulting Agency Comment Spec In Lab Edward Rodríguez MD HEMATOLOGY ORDERABLES Performing Organization Address City/State/[place] [address] (ABNORMAL) Urinalysis Microscopic Exam [...] Organization Address City/State/[place] [address] (ABNORMAL) Urinalysis with reflex Culture (05/16/2022 11:15 PM EDT) Patholo gist Method Time Signature Glucose UA Negative Negative [facility] mg/dL [facility] LABORATORY Protein UA Negative Negative [facility] mg/dL [facility] LABORATORY Bilirubin UA Negative Negative [facility] mg/dL [facility] LABORATORY Comment: Clinical correlation required for [...] Blood UA Small (A) Negative mg/dL [facility] LABORATORY Ketones UA Trace (A) Negative mg/dL [facility] LABORATORY Nitrite UA Negative Negative [facility] LABORATORY Leukocytes UA Negative Negative [facility] LABORATORY Appearance UA Clear Clear [facility] LABORATORY Spec [place] UA 1.021 1.005 - 1.030 [facility] LABORATORY Color UA Yellow Yellow [facility] LABORATORY Culture Reflexed No [facility] LABORATORY Specimen Anatomical Collection Method Collection Time Receive d Time (Source) Location / / Volume Laterality Clean Catch 05/16/2022 11:15 05/16/2022 Urine PM EDT 11:30 PM EDT Resulting Agency Comment Spec In Lab Fito Summers MD URINE ORDERABLES Performing Organization Address City/State/[place] [address] Heparin (unfractionated) Level (05/16/2022 10:59 PM EDT) P athologist Signature Heparin UFH 0.65 IU/mL [facility] LABORATORY Comment: Specimen drawn more [...] Organization Address City/State/ZIP Code Phon e Number [place] [id number] HOSPITAL LABORATORY Drive XR Chest One View [...] who have questions please contact the health progressive care unit registered nurse that requested your imaging first. ? [...] ho have questions please contact the health progressive care unit registered nurse that requested your imaging first. Electronically signed by: Tiffanie George MD , [facility] ([phone]), at 05/16/2022 9:27 PM Fito Summers MD IMG DX ORDERABLES EKG 12 Lead (05/16/2022 8:57 PM EDT) Component Value Ref Range Test Analysis Performed Pathologis t Method Time At Signature Ventricular rate 117 BPM MUSE SYSTEM QRS Duration 112 ms MUSE SYSTEM Q-T Interval 346 ms MUSE SYSTEM QTC Calculated 482 ms MUSE SYSTEM (Bezet) Calculated R [place] -48 degrees MUSE SYSTEM Calculated T [place] 111 degrees MUSE SYSTEM INTERPRETATION Atrial fibrillation [...] Summers MD ECG ORDERABLES Performing Organization Address City/[facility]/ZIP Code Phon e Number MUSE SYSTEM Heparin (unfractionated) Level (05/16/2022 4:34 PM EDT) P athologist Signature Heparin UFH 0.53 IU/mL [facility] LABORATORY Comment: [...] Summers MD HEMATOLOGY ORDERABLES Performing Organization Address City/[facility]/[place] [address] ECHOCARDIOGRAM COMPLETE W CONTRAST (05/16/2022 12:49 PM EDT) athologist Signature EF 28 HEARTLAB SYSTEM Anatomical Region Laterality Modality Cardiac Other Specimen (Source) Anatomical Collection Method Collection Time Re ceived Time Location / / Volume Laterality 05/16/2022 11:22 AM EDT Narrative 05/16/2022 1:54 PM EDT ?[facility] ?[address] ? [place] [address] ?Voice: ?Fax: ? Echocardiogram Report Name: KOKO ZAMORA J ?Study Date: 05/16/2022 11:22 AM ? Patient Location: 3WST 0303 B : 1940 ? Height: 67.5 in ? Account: [id number] Age: 81 yrs ? Weight: 176 lb Gender: Male ?BSA: 1.9 m2 Ordering Physician: FITO SUMMERS Referring Physician: MALI FLORIAN Performed By: Jolene Bernard RDCS Exam Location: [facility]. Interpretation Summary Left ventricle is [...] and LV systolic dysfunction are new. Procedure Complete-[id number]. Image enhancement Optiso n was used for [...] diffuse Procedure Note Gladys Jaime MD - 05/16/2022Urvashiatti kenroy of this note might be different from the original. [place] [address] [place] [address] Voice: Fax: Echocardiogram Report Name: KOKO ZAMORA Study Date: 05/2022 11:22 AM Patient Location: [address] [place] [address] : 1940 Height: 67.5 in Account: [id number] Age: 81 yrs Weight: 176 lb Gender: Male BSA: 1.9 m2 Ordering Physician: FITO SUMMERS Referring Physician: MALI FLORIAN Performed By: Jolene Bernard RDCS Exam Location: [facility]. Interpretation Summary Left ventricle is [...] and LV systolic dysfunction are new. Procedure Complete-[id number]. Image enhancement Optiso n was used for [...] (ABNORMAL) Differential, Automated (05/16/2022 3:01 AM EDT) [facility] gist Method Time Signature Neutrophils % 78.8 % [facility] LABORATORY Neutr Abs (ANC) 9.11 (H) 1.70 - [facility] 6.10 [facility] x10(3)/[facility] LABORATORY Lymphocytes % 9.4 % [facility] LABORATORY Lymphocytes Abs 1.1 0.9 - 3.2 [facility] x10(3)/[facility] LABORATORY Monocytes % 10.9 % [facility] LABORATORY Monocyte Abs 1.3 (H) 0.3 - 0.9 [facility] x10(3)/[facility] LABORATORY Eosinophils % 0.0 % [facility] LABORATORY Eosinophils Abs 0.0 0.0 - 0.4 [facility] x10(3)/[facility] LABORATORY Basophils % 0.3 % [facility] LABORATORY Basophils Abs 0.0 0.0 - 0.1 [facility] x10(3)/[facility] LABORATORY Immature Gran % 0.60 % [facility] LABORATORY Comment: Immature granulocytes(IG's)percentage an d absolute count will include metamyelocytes, myelocytes, and promyelo cytes. Blood smears from CBCs yielding IG's will be scanned manually for tracy armstrong. If this scan disagrees with the automated IG or if promyelocytes are not ed, a manual differential will be performed. Rain Gran Abs 0.07 (H) 0.00 - 0.04 x10(3)/[facility] LABORATORY Specimen Anatomical Collection Method Collection Time Receive d Time (Source) Location / / Volume Laterality Blood 05/16/2022 3:01 AM 3:36 EDT AM EDT Resulting Agency Comment Spec In Lab Erin Garza MD HEMATOLOGY ORDERABLES Performing Organization Address City/State/[place] [address] (ABNORMAL) Hemogram (05/16/2022 3:01 AM EDT) Analysis Performed At Patho logist Time Signature WBC 11.6 (H) 4.0 - 9.5 [facility] x[facility](3[facility] LABORATORY RBC 3.62 (L) 4.58 - [facility] 5.54 [facility] x10(6)/[facility] LABORATORY Hemoglobin 12.0 (L) 13.7 - [facility] 16.5 g/dL [facility] LABORATORY Hematocrit 35.3 (L) 40.5 - [facility] 48.5 % [facility] LABORATORY MCV 97.5 (H) 82.9 - [facility] 93.1 [facility] LABORATORY MCH 33.1 (H) 27.5 - [facility] 32.1 pg [facility] LABORATORY MCHC 34.0 32.0 - [facility] 35.7 g/dL [facility] LABORATORY Platelets 151 145 - 357 [facility] x[facility](3[facility] LABORATORY RDWSD 47.6 (H) 36.0 - [facility] 45.0 [facility] LABORATORY RDWCV 13.3 11.4 - [facility] 13.8 % [facility] LABORATORY MPV 10.5 7.6 - 12.9 [facility] nRBC % Auto 0.0 % [facility] LABORATORY nRBC Abs Auto 0.000 0.000 - [facility] 0.000 [facility] x10(3)/[facility] LABORATORY Specimen Anatomical Collection Method Collection Time Receive d Time (Source) Location / / Volume Laterality Blood 05/16/2022 3:01 AM 2 3:36 EDT AM EDT Resulting Agency Comment Spec In Lab Erin Garza MD HEMATOLOGY ORDERABLES Performing Organization Address City/[facility]/ZIP Code Phon e Number [address] Phosphorus (05/16/2022 3:01 AM EDT) P athologist Signature Phosphorus 3.7 2.5 - 4.5 [facility] mg/dL [facility] LABORATORY Specimen Anatomical Collection Method Collection Time Receive d Time (Source) Location / / Volume Laterality Blood 05/16/2022 3:01 AM 2 3:36 EDT AM EDT Resulting Agency Comment Spec In Lab Fito Summers MD CHEMISTRY ORDERABLES Performing Organization Address City/[facility]/ZIP Code Phon e Number [address] Magnesium (05/16/2022 3:01 AM EDT) P athologist Signature Magnesium 0.77 0.69 - 1.07 [facility] mmol/L [facility] LABORATORY Specimen Anatomical Collection Method Collection Time Receive d Time (Source) Location / / Volume Laterality Blood 05/16/2022 3:01 AM 2 3:36 EDT AM EDT Resulting Agency Comment Spec In Lab Fito Summers MD CHEMISTRY ORDERABLES Performing Organization Address City/[facility]/ZIP Code Phon e Number [address] (ABNORMAL) Basic Metabolic Panel (non-fasting) (05/16/2022 3:01 AM EDT) P athologist Signature Glucose Lvl 222 (H) 65 - 199 [facility] mg/dL [facility] LABORATORY Comment: Diabetes: >=200 mg/dL plus symp toms BUN 12 10 - 20 mg/dL [facility] LABORATORY Creatinine 0.66 (L) 0.80 - 1.50 mg/dL [facility] LABORATORY Sodium 138 135 - [...] mmol/L [facility] LABORATORY CO2 22 22 - 31 mmol/L [facility] LABORATORY Anion Gap 8 5 - 15 mmol/L [facility] LABORATORY Calcium 8.2 (L) 8.5 - 10.5 mg/dL [facility] LABORATORY Estimated GFR 95 >=60 mL/min/1.73 m?? [facility] [...] Organization Address City/State/[place] [address] (ABNORMAL) BLOOD GAS 2 ARTERIAL (05/15/2022 3:33 PM EDT) Analysis Performed At Patho logist Time Signature pH Art 7.33 (L) 7.35 - [facility] 7.45 [facility] LABORATORY pCO2 Art 41 35 - 45 [facility] LABORATORY pO2 Art 131 (H) 85 - 104 [facility] LABORATORY HCO3 Art 21.1 20.0 - [facility] 26.0 [facility] mmol/L [facility] LABORATORY BE Art -4.8 (L) -3.0 - 3.0 [facility] mmol/L [facility] LABORATORY Hgb Blood Gas 13.4 (L) 13.7 - [facility] 16.5 g/dL [facility] O2HB Art 96.9 94.0 - [facility] 97.0 % [facility] LABORATORY COHB Art 1.4 % [facility] [...] Lactate WB 2.0 0.5 - 2.2 mmol/L [facility] LABORATORY Specimen Anatomical Collection Method Collection Time Receive d Time (Source) Location / / Volume Laterality Blood 05/15/2022 3:33 PM 3:[address] Jamel Torre MD CHEMISTRY ORDERABLES Performing Organization Address City/State/[place] [address] (ABNORMAL) BLOOD GAS 2 ARTERIAL (05/15/2022 2:06 PM EDT) Analysis Performed At Patho logist Time Signature pH Art 7.39 7.35 - [facility] 7.45 [facility] LABORATORY pCO2 Art 35 35 - 45 [facility] mmHg [facility] LABORATORY pO2 Art 135 (H) 85 - 104 [facility] LABORATORY HCO3 Art 20.8 20.0 - [facility] 26.0 [facility] mmol/L [facility] LABORATORY BE Art -4.2 (L) -3.0 - 3.0 [facility] mmol/L [facility] LABORATORY Hgb Blood Gas 14.5 13.7 - [facility] 16.5 g/dL [facility] LABORATORY O2HB Art 97.2 (H) 94.0 - [facility] 97.0 % [facility] LABORATORY COHB Art 1.2 % [facility] LABORATORY Comment: Nonsmokers: 0.5-1.5% COHB Smokers: Variable, but usually less than 10% Toxic: 20-30% COHB Lethal: Greater than 60% COHB METHB Art 0.3 <=1.5 % [facility] LABORATORY Na Whole Blood 140 135 - 145 mmol/L [facility] LABORATORY K Whole Blood 3.8 3.5 - 5.0 mmol/L [facility] LABORATORY Comment: Please note: Patients with WBC >100,000 may have falsely elevated Potassium levels. Contact the Clinical Chemistry L aboratory if there are any questions. ICa Whole Blood 1.12 (L) 1.15 - 1.33 mmol/L [facility] [...] Lactate WB 1.5 0.5 - 2.2 mmol/L [facility] LABORATORY Specimen Anatomical Collection Method Collection Time Receive d Time (Source) Location / / Volume Laterality Blood 05/15/2022 2:06 PM 2:[address] Jamel Torre MD CHEMISTRY ORDERABLES Performing Organization Address City/State/[place] [address] (ABNORMAL) Prothrombin Time (05/15/2022 12:30 PM EDT) P athologist Signature PT 12.9 (H) 9.4 - 12.5 [facility] LABORATORY INR 1.1 [facility] [...] EDT Resulting Agency Comment Spec In Lab Jhonyn Morales DO HEMATOLOGY ORDERABLES Performing Organization Address City/State/[place] [address] (ABNORMAL) APTT (05/15/2022 12:30 [...] Organization Address City/State/[place] [address] Gold Tube HOLD (05/15/2022 12:20 PM EDT) P athologist Signature Gold Hold Sample in [facility] lab. [facility] LABORATORY Specimen Anatomical Collection Method Collection Time Receive d Time (Source) Location / / Volume Laterality Blood No Charge / 05/15/2022 12:20 05/15/2022 Unknown PM EDT 12:20 PM EDT Lc Dominick Kimberly TRIPP CHEMISTRY ORDERABLES Performing Organization Address City/State/[place] [address] Type and Screen Validity (05/15/2022 12:00 PM EDT) [facility] Method Time Signature T&S only valid [facility] LABORATORY Comment: This Type and Screen result is only valid at the [facility] Specimen Anatomical Collection Method Collection Time Receive d Time (Source) Location / / Volume Laterality Blood 05/15/2022 12:00 05/15/2022 PM EDT 12:17 PM EDT Resulting Agency Comment Spec In Lab Lc Dominick Kimberly TRIPP BLOOD BANK ORDERABLES Performing Organization Address City/State/ZIP Code Phon e Number [address] ABORH Recheck Status (05/15/2022 12:00 PM EDT) [facility] Method Time Signature ABORH Recheck Order Placed [facility] K Order [facility] LABORATORY ABORH Type Complete [facility] LABORATORY Specimen Anatomical Collection Method Collection Time Receive d Time (Source) Location / / Volume Laterality Blood 05/15/2022 12:00 05/15/2022 PM EDT 12:17 PM EDT Resulting Agency Comment Spec In Lab Lc Dominick Kimberly PA BLOOD BANK ORDERABLES Performing Organization Address City/State/ZIP Code Phon e Number [address] CK (05/15/2022 12:00 PM EDT) P athologist Signature CK, Total 87 0 - 200 [facility] unit/L [facility] LABORATORY Specimen Anatomical Collection Method Collection Time Receive d Time (Source) Location / / Volume Laterality Blood Venous Draw / 05/15/2022 12:00 05/15/2022 Unknown PM EDT 12:19 PM EDT Resulting Agency Comment Spec In Lab Fito Summers MD CHEMISTRY ORDERABLES Performing Organization Address City/[facility]/[place] [address] Antibody screen (05/15/2022 12:00 PM EDT) [facility] Method Time Signature Ab Screen Negative [facility] LABORATORY Expires at 05/18/2022 [facility] 2359 on: [facility] LABORATORY Specimen Anatomical Collection Method Collection Time Receive d Time (Source) Location / / Volume Laterality Blood 05/15/2022 12:00 05/15/2022 PM EDT 12:17 PM EDT Resulting Agency Comment Spec In Lab Lc TRIPP BLOOD BANK ORDERABLES Performing Organization Address City/[facility]/[place] [address] ABO/Rh Typing (05/15/2022 12:00 PM EDT) P athologist Signature ABORh Type O Pos [facility] LABORATORY Specimen Anatomical Collection Method Collection Time Receive d Time (Source) Location / / Volume Laterality Blood 05/15/2022 12:00 05/15/2022 PM EDT 12:17 PM EDT Resulting Agency Comment Spec In Lab Lc Harris PA BLOOD BANK ORDERABLES Performing Organization Address City/[facility]/[place] [address] (ABNORMAL) Differential, Automated (05/15/2022 12:00 PM EDT) [facility] Method Time Signature Neutrophils % 79.4 % [facility] LABORATORY Neutr Abs (ANC) 7.49 (H) 1.70 - [facility] 6.10 [facility] x10(3)/[facility] L LABORATORY Lymphocytes % 11.3 % [facility] LABORATORY Lymphocytes Abs 1.1 0.9 - 3.2 [facility] x10(3)/[facility] LABORATORY Monocytes % 7.8 % [facility] LABORATORY Monocyte Abs 0.7 0.3 - 0.9 [facility] x10(3)/[facility] LABORATORY Eosinophils % 0.6 % [facility] LABORATORY Eosinophils Abs 0.1 0.0 - 0.4 [facility] x10(3)/[facility] LABORATORY Basophils % 0.6 % [facility] LABORATORY Basophils Abs 0.1 0.0 - 0.1 [facility] x10(3)/[facility] LABORATORY Immature Gran % 0.30 % [facility] LABORATORY Comment: Immature granulocytes(IG's)percentage an d absolute count will include metamyelocytes, myelocytes, and promyelo cytes. Blood smears from CBCs yielding IG's will be scanned manually for concor dance. If this scan disagrees with the automated IG or if promyelocytes are not ed, a manual differential will be performed. Rain Gran Abs 0.03 0.00 - 0.04 x10(3)/[facility] LABORATORY Specimen Anatomical Collection Method Collection Time Receive d Time (Source) Location / / Volume Laterality Blood 05/15/2022 12:00 05/15/2022 PM EDT 12:19 PM EDT Resulting Agency Comment Spec In Lab Lc TRIPP HEMATOLOGY ORDERABLES Performing Organization Address City/State/[place] [address] (ABNORMAL) Hemogram (05/15/2022 12:00 PM EDT) Analysis Performed At Patho logist Time Signature WBC 9.4 4.0 - 9.5 [facility] x10(3)/[facility] LABORATORY RBC 4.48 (L) 4.58 - [facility] 5.54 [facility] x10(6)/[facility] LABORATORY Hemoglobin 14.5 13.7 - [facility] 16.5 g/dL [facility] LABORATORY Hematocrit 42.4 40.5 - [facility] 48.5 % [facility] LABORATORY MCV 94.6 (H) 82.9 - [facility] 93.1 [facility] LABORATORY MCH 32.4 (H) 27.5 - [facility] 32.1 pg [facility] LABORATORY MCHC 34.2 32.0 - [facility] 35.7 g/dL [facility] LABORATORY Platelets 209 145 - 357 [facility] x10(3)/[facility] LABORATORY RDWSD 45.9 (H) 36.0 - [facility] 45.0 [facility] LABORATORY RDWCV 13.1 11.4 - [facility] 13.8 % [facility] LABORATORY MPV 10.5 7.6 - 12.9 [facility] LABORATORY nRBC % Auto 0.0 % [facility] LABORATORY nRBC Abs Auto 0.000 0.000 - [facility] 0.000 [facility] x10(3)/[facility] LABORATORY Specimen Anatomical Collection Method Collection Time Receive d Time (Source) Location / / Volume Laterality Blood 05/15/2022 12:00 05/15/2022 PM EDT 12:19 PM EDT Resulting Agency Comment Spec In Lab Lc TRIPP HEMATOLOGY ORDERABLES Performing Organization Address City/State/[place] [address] (ABNORMAL) Basic Metabolic Panel (non-fasting) (05/15/2022 12:00 PM EDT) P athologist Signature Glucose Lvl 203 (H) 65 - 199 [facility] mg/dL [facility] LABORATORY Comment: Diabetes: >=200 mg/dL plus symp toms BUN 16 10 - 20 mg/dL [facility] LABORATORY Creatinine 0.84 0.80 - 1.50 mg/dL [facility] [...] [facility] LABORATORY Anion Gap 11 5 - 15 mmol/L [facility] LABORATORY Calcium 8.5 8.5 - 10.5 mg/dL [facility] LABORATORY Estimated GFR 89 >=60 mL/min/1.73 m?? [facility] [...] Organization Address City/State/[place] [address] documented in this encounter [...] (Given - Pr ovider: Caroline Zamora RN) 0863 (Given - Provider: Barbie Joyce RN)175 (MAR Hold - Provider: Admin Adt - Reason: Transfer to a Procedural area)1955 ([facility] Unhold - Provider: Admin Adt) 0815 (Given - Provider: Etta contreras, DION) 1,000 mcg, Oral, DAILY, First dose on 05/16/22 at 0900, Until Discontinued, Routine metoprolol tartrate (Lopressor) tablet 12.5 mg (CANCEL ED) 0838 (Given - Provider: Caroline Zamora RN)2008 (Given - Provider: Nuris Lester RN) 0853 (Given - Provider: Barbie Joyce RN)175 ([facility] Hold - [...] (Given - Provider: Barbie Joyce , DION)1750 ([facility] Hold - [...] 0853 (Given - Provider: Barbie Joyce RN)175 ([facility] Hold - [...] 0853 (Given - Provider: Barbie Joyce RN)1750 ([facility] Hold - Provider: Admin Adt - Reason: Transfer to a Procedural area)1955 ([facility] Unhold - Provider: Admin Adt) 08 (Given - Provider: Etta contreras RN) 100 mg, Oral, DAILY, First dose on Brandi at 0900, Until Discontinued, Routine valsartan (Diovan) tablet 40 mg 38 (Given - Provider : Caroline Zamora RN)2008 (Given - Provider: Nuris Lester RN) 0853 (Given - Provider: Barbie Joyce RN)1750 ([facility] Hold - [...] (New Bag - Provider: Barbie Joyce RN)1750 ([facility] Hold - Provider: Admin Adt - Reason: Transfer to a Procedural area)1955 ([facility] Unhold - Provider: Admin Adt) 9 (Restarted - Provider: Tere Blankenship RN - [...] acetaminophen (Tylenol) tablet 650 mg 17 51 ([facility] Hold - [...] bisacodyL (Dulcolax) suppository 10 mg 1 751 ([facility] Hold - [...] Admin Adt) 0-8,000 Units, Intravenous, BOLUS PER HE ABRAHAM PROTOCOL, Starting on Brandi 05/16/22 at 0758, [...]
Routine documented in this encounter Care Teams Belt Notcher Relationship Specialty Start Date End Date Bobby Das MD PCP - General 10/02/[address] [place] [address] [place] [address] documented as of this encounter
--- OUTSIDE RECORDS SUMMARY | 2022-07-12 09:41 | XMS_ITS | Encounter Summary ---
:1940 Author Organization [facility] Address [facility] [place] [address] Care Team Providers Name Role Phone Bobby Das MD Primary Care Provider Encounter Details Date Type Department Care Team Description 10/25/2020 Laboratory Appointment Lab at [facility] Compression fracture [facility] of [address] [place] [address] Social History Tobacco Use Types Packs/Day Years [...] Negra Collins MD [facility] DR GASTROENTEROLOGY DEPT [place], [place] 0[address] (Wo rk) 09/05/2022 Appointment Cardiology Trinity Reid MD [facility] CARDIOLOGY [place], [place] 0375 (Wo rk) 09/05/2022 Office Visit Cardiology Trinity Reid MD [facility] CARDIOLOGY [place], [place] 0375 (Wo rk) documented as of this encounter Procedures Procedure Name Priority Date/Time Associated Diagnosis Comme [facility] VENIPUNCTURE Routine 10/25/2020 6:35 AM Compression fractur [...] athologist Signature Platelets 192 145 - 357 [facility] x10(3)/[facility] LABORATORY Plat Immature 2.6 0.0 - 7.4 [facility] % % [facility] LABORATORY Comment: Limitation of the Immature Platelet Frac tion (IPF)-May be less reliable when the platelet count is less than 26d031/u L due to statistical imprecision. The IPF [...] in a decreased state of production. References: [employer] The Clinical Value of the Immature Platelet Fraction (IPF) in Cell Recovery Document Number [id number] 04/2011 [employer] The Role of the Imm ature [...] Organization Address City/State/[place] [address] Prothrombin Time (10/25/2020 6:35 AM EST) athologist Signature PT 10.8 9.4 - 12.5 [facility] LABORATORY INR 1.0 [facility] LABORATORY Comment: An INR [...] EST Resulting Agency Comment Spec In Lab Aplhonso Esquivel DO HEMATOLOGY ORDERABLES Performing Organization Address City/State/ZIP Code Phon e Number [place] [id number] documented in this encounter Visit Diagnoses Diagnosis Compression fracture of T9 vertebra, ini tial encounter documented in this encounter Care Teams Power Reactor Supervisor Relationship Specialty Start Date End Date Bobby Das MD PCP - General 10/02/[address] [place] [address] [place] [phone] documented as of this encounter
--- OUTSIDE RECORDS SUMMARY | 2022-07-12 09:41 | XMS_ITS | Encounter Summary ---
:1940 Author Organization [facility] [place] [address] Care Team Providers Name Role Phone Bobby Das MD Primary Care Provider Encounter Details Date Type Department Care Team Description 06/26/2018 Ancillary Procedure Radiology Library at Bobby Almaguer MD [facility] [address] [place] [phone] (Wo rk) Social History Tobacco Use Types Packs/Day Years Used Date Current Some Day Smoker 1 50 Smokeless Tobacco: Never Used Sex Assigned at Date Recorded Not on file documented as of this encounter Plan of Treatment Upcoming Encounters Date Type Specialty Care Team Description 08/08/2022 Office Visit Gastroenterology Negra Collins MD [facility] DR GASTROENTEROLOGY DEPT [place], [place] [address] (Wo rk) 09/05/2022 Appointment Cardiology Trinity Reid MD [facility] CARDIOLOGY [place], [place] [address] (Wo rk) 09/05/2022 Office Visit Cardiology Trinity Reid MD [facility] CARDIOLOGY [place], [place] [address] (Wo rk) documented [...] Organization Address City/State/ZIP Code Phon e Number [place], [place] documented in this encounter Visit Diagnoses Not on filedocumented in this encounter Care Teams Registered Nurse Midwife Relationship Specialty Start Date End Date Bobby Das MD PCP - General 10/02/[address] [place] [address] [place] [address] documented as of this encounter
--- OUTSIDE RECORDS SUMMARY | 2022-07-12 09:41 | XMS_ITS | Encounter Summary ---
:1940 Author Organization [facility] Address [facility] [address] [place] [address] Care Team Providers Name Role Phone Bobby Das MD Primary Care Provider Reason for Visit - Closed Specialty Diagnoses / Procedures Referred By Contact Refer red To Contact Procedures Bobby Das MD Film Library- Storage Only [facility] [place] [address] Referral ID Status Reason Start Date Expiration Date Visits Requ ested Visits Authorized [id number] Closed 02/23/2021 02/23/2022 1 1 Encounter Details Date Type Department Care Team Description 03/16/2020 Ancillary Procedure Radiology Library at Bobby Almaguer MD [address] [phone] (Rebekah rojas) Social History Tobacco Use Types [...] 08/08/2022 Office Visit Gastroenterology Negra Collins MD [facility] GASTROENTEROLOGY DEPT [place], [place] [address] (Wo rk) 09/05/2022 Appointment Cardiology Trinity Reid MD [facility] CARDIOLOGY [place], [place] [address] (Wo rk) 09/05/2022 Office Visit Cardiology Trinity Reid MD [facility] CARDIOLOGY [place], [place] [address] (Wo rk) documented as of [...] Organization Address City/State/ZIP Code Phon e Number [place], [place] documented in this encounter Visit Diagnoses Not on filedocumented in this encounter Care Teams Machine Cell Tuber Relationship Specialty Start Date End Date Bobby Das MD PCP - General 10/02/[address] [place] [address] [place] [phone] documented as of this encounter
--- OUTSIDE RECORDS SUMMARY | 2022-07-12 09:41 | XMS_ITS | Encounter Summary ---
:1940 Author Organization [facility] [place] [address] Care Team Providers Name Role Phone Bobby Das MD Primary Care Provider Encounter Details Date Type Department Care Team Description 07/26/2015 External Results Medical Records Provider, Scanning [facility] [place] [address] Social History Tobacco Use Types Packs/Day Years Used Date Current Some Day Smoker 1 50 Smokeless Tobacco: Never Used Sex Assigned at Date Recorded Not on file documented as of this encounter Plan of Treatment Upcoming Encounters Date Type Specialty Care Team Description 08/08/2022 Office Visit Gastroenterology Negra Collins MD [facility] GASTROENTEROLOGY DEPT [place], [place] [address] (Wo rk) 09/05/2022 Appointment Cardiology Trinity Reid MD [facility] CARDIOLOGY [place], [place] [address] (Wo rk) 09/05/2022 Office Visit Cardiology Trinity Reid MD [facility] CARDIOLOGY [place], [place] [address] (Wo rk) documented as of [...] filedocumented in this encounter Care Teams Manager Of Allied Health Services Relationship Specialty Start Date End Date Bobby Das MD PCP - General 10/02/[address] [place] [address] [place] [phone] documented as of this encounter
--- OUTSIDE RECORDS SUMMARY | 2022-07-12 09:41 | XMS_ITS | Encounter Summary ---
:1940 Author Organization [facility] [place] [address] Care Team Providers Name Role Phone Bobby Das MD Primary Care Provider Reason for Visit Reason Comments Basal Cell Carcinoma Encounter Details Date Type Department Care Team Description 08/24/2015 Procedure visit Dermatology at [facility] Leo Solo BCC (basal cell Road MD Delores carcinoma of skin) [address] [facility] [address] [facility] [phone] [address] [address] Social History Tobacco Use Types Packs/Day Years [...] when the wound is well cared for. [place] drainage or slight yellow film on your [...] the hospital number and ask for the Employee Benefits Specialist land leasing information clerk. Wound Care for Sutured Wounds You should [...] the hospital number and ask for the Employee Benefits Specialist land leasing information clerk. documented in this encounter Progress Notes Leo Solo MD - 08/24/2015 3:25 PM EDT Operative Report Patient name: Koko Zamora : 1940 Date: 08/24/2015 Staff Surgeon: Leo Solo MD, PhD Mdm Sr I: Cassy Jacobson, Yolanda Verdin, Etta Burciaga, Gloria Culver MD Property Appraiser: Kourtney Cabrera Pre-operative diagnosis: Basal cell carcinoma Post-operative diagnosis: Basal cell carcinoma Location: Right catholic Procedure: Mohs micrographic surgery Indication for Mohs micrographic surgery: Critical anatomic location Stages: 2 Final defect size: 3.6 x 2.0 cm Stage I The nature and purpose of the procedure, associated risks, possible consequences and complications,and alternative forms of treatment were explained in detail. Informed consent and permission to takephotographs were obtained. The site was confirmed with the patient/authorized floor representative/referring physician and a pre-operative time-out was [...] 08/24/2015 Staff Surgeon: Leo Solo MD, PhD Mdm Sr I: Yolanda Rivera, Estefania Welch Clinical Diagnosis: 3.6 x 2.0 cm surgical defect secondary to Mohs microscopically controlled excision of basal cell carcinoma Location: Right catholic Procedure: Transposition flap repair Due to the [...] Visit Gastroenterology Negra Collins MD [facility] GASTROENTEROLOGY DEPT [place], [place] [address] ([facility]) 09/05/2022 Appointment Cardiology Trinity Reid MD [facility] CARDIOLOGY [place], [place] [address] ([facility]) 09/05/2022 Office Visit Cardiology Trinity Reid MD [facility] CARDIOLOGY [place], [place] [address] ([facility]) documented as of this encounter Visit Diagnoses Diagnosis BCC (basal cell carcinoma of skin) Basal cell carcinoma of skin, site unspe cified documented in this encounter Care Teams Manager Infusion Relationship Specialty Start Date End Date Bobby Das MD PCP - General 10/02/[address] [place] [address] [place] [phone] documented as of this encounter
--- OUTSIDE RECORDS SUMMARY | 2022-07-12 09:41 | XMS_ITS | Encounter Summary ---
:1940 Author Organization [place] [place] [address] Care Team Providers Name Role Phone Bobby Das MD Primary Care Provider Reason for Referral Diagnostic Test (Routine) - Closed Specialty Diagnoses / Procedures Referred By Contact Refer red To Contact Radiology Diagnoses Compression fracture of T9 vertebra, initial encounter Alphonso Esquivel, DO [facility] Interventionl Rad Procedures IR Vertebroplasty Thoracic Single Level [facility] [place] [address] [place] [address] Referral ID Status Reason Start Date Expiration Date Visits V isits Requested Authorized [id number] Closed Specialty 10/13/2020 04/13/2022 1 1 Service Requested Encounter Details Date Type Department Care Team Description 10/13/2020 Orders Only Radiology at [facility] Alphonso Esquivel, Compression fracture [facility] DO of T9 vertebra, Drive [facility] [place] [address] DIAGNOSTIC RADIOLOGY [place], [place] [address] Social History Tobacco Use Types [...] MD [facility] DR GASTROENTEROLOGY DEPT [place], [place] [address] (Wo rk) 09/05/2022 Appointment Cardiology Trinity Reid MD [facility] CARDIOLOGY [place], [place] [address] (Wo rk) 09/05/2022 Office Visit Cardiology Trinity Reid MD [facility] CARDIOLOGY [place], [place] [address] (Wo rk) documented as of [...] made and a 13g a introducer needle ([employer] was advanced through the right pedicle and t o the ??T9 vertebral body during an intermittent fluoroscopic guidance. The [employer] biopsy cannula was advanced through the introducer [...] was made and a 13ga introducer needle ([employer] was advanced through the left pedicle and [...] made and a 13g a introducer needle ([employer] was advanced through the right pedicle and t o the T9 vertebral body during an intermittent fluoroscopic guidance. [employer] biopsy cannula was advanced through the introducer [...] was made and a 13ga introducer needle ([employer] was advanced through the left pedicle and [...] athologist Signature PT 10.8 9.4 - 12.5 [facility] LABORATORY INR 1.0 [facility] LABORATORY Comment: [...] Organization Address City/State/ZIP Code [place] [address] Platelet count (10/25/2020 6:35 AM EST) athologist Signature Platelets 192 145 - 357 [facility] x10(3)/[facility] LABORATORY Plat Immature 2.6 0.0 - 7.4 [facility] % % [facility] LABORATORY Comment: Limitation of the Immature Platelet Frac tion (IPF)-May be less reliable when the platelet count is less than 18u756/u L due to statistical imprecision. The IPF [...] in a decreased state of production. References: [employer] The Clinical Value of the Immature Platelet Fraction (IPF) in Cell Recovery Document Number 10-1143 04/2011 [employer] The Role of the Imm ature [...] Organization Address City/State/[place] [address] documented in this encounter Visit Diagnoses Diagnosis Compression fracture of T9 vertebra, ini tial encounter Compression fracture of T9 vertebra, ini tial encounter documented in this encounter Care Teams Trash Truck Driver Relationship Specialty Start Date End Date Bobby Das MD PCP - General 10/02/[address] [place] [address] [place] [phone] documented as of this encounter
--- OUTSIDE RECORDS SUMMARY | 2022-07-12 09:41 | XMS_ITS | Encounter Summary ---
:1940 Author Organization [facility] [place] [address] Care Team Providers Name Role Phone Bobby Das MD Primary Care Provider Encounter Details Date Type Department Care Team Description 07/20/2019 Laboratory Lab 3L Ifrah Gastrointestina l Appointment [facility] hemorrhag e, unspecified Hospital gastrointestinal [facility] [place] [phone] Social History Tobacco Use Types Packs/Day Years [...] MD [facility] DR GASTROENTEROLOGY DEPT [place], [place] [address] (Wo rk) 09/05/2022 Appointment Cardiology Trinity Reid MD [facility] CARDIOLOGY [place], [place] [address] (Wo rk) 09/05/2022 Office Visit Cardiology Trinity Reid MD [facility] CARDIOLOGY [place], [place] [address] (Wo rk) documented as of this encounter Procedures Procedure Name Priority Date/Time Associated Diagnosis Comme [facility] HEMOGRAM Routine 07/20/2019 8:18 Gastrointestinal Results for [...] Signature WBC 6.0 4.0 - 9.5 [facility] LABORATORY RBC 4.50 (L) 4.58 - [facility] 5.54 [facility] x10(6)/[facility] LABORATORY Hemoglobin 14.8 13.7 - [facility] 16.5 gm/dL [facility] LABORATORY Hematocrit 43.9 40.5 - [facility] 48.5 % [facility] LABORATORY MCV 97.6 (H) 82.9 - [facility] 93.1 [facility] LABORATORY MCH 32.9 (H) 27.5 - [facility] 32.1 pg [facility] LABORATORY MCHC 33.7 32.0 - [facility] 35.7 gm/dL [facility] LABORATORY Platelets 164 145 - 357 [place] x10(3)/[facility] LABORATORY RDWSD 49.3 (H) 36.0 - [facility] 45.0 [facility] LABORATORY RDWCV 13.6 11.4 - [facility] 13.8 % [facility] LABORATORY MPV 10.0 7.6 - 12.9 [facility] LABORATORY nRBC % Auto 0.0 % [facility] LABORATORY nRBC Abs Auto 0.000 0.000 - [facility] 0.000 [facility] x10(3)/[facility] LABORATORY Specimen Anatomical Collection Method Collection Time Receive d Time (Source) Location / / Volume Laterality Blood specimen 07/20/2019 8:18 AM 019 8:21 (specimen) EDT AM EDT Resulting Agency Comment Spec In Lab Bobby Marshall MD HEMATOLOGY ORDERABLES Performing Organization Address City/State/[place] [address] Prothrombin Time (07/20/2019 8:18 AM EDT) P athologist Signature PT 11.3 9.4 - 12.5 [facility] LABORATORY INR 1.0 [facility] LABORATORY Comment: An INR [...] Organization Address City/State/[place] [address] documented in this encounter Visit Diagnoses Diagnosis Gastrointestinal hemorrhage, unspecified gastrointestinal hemorrhage type documented in this encounter Care Teams Rug Designer Relationship Specialty Start Date End Date Bobby Das MD PCP - General 10/02/[address] [place] [address] [place], [place] [address] documented as of this encounter
--- OUTSIDE RECORDS SUMMARY | 2022-07-12 09:41 | XMS_ITS | Encounter Summary ---
:1940 Author Organization [facility] [place] [address] Care Team Providers Name Role Phone Bobby Das MD Primary Care Provider Encounter Details Date Type Department Care Team Description 05/13/2018 Ancillary Procedure Radiology Library at Bobby Almaguer MD [facility] [address] [place] [phone] (Wo rk) Social History Tobacco Use Types Packs/Day Years Used Date Current Some Day Smoker 1 50 Smokeless Tobacco: Never Used Sex Assigned at Date Recorded Not on file documented as of this encounter Plan of Treatment Upcoming Encounters Date Type Specialty Care Team Description 08/08/2022 Office Visit Gastroenterology Negra Collins MD [facility] DR GASTROENTEROLOGY DEPT [place], [place] [address] (Wo rk) 09/05/2022 Appointment Cardiology Trinity Reid MD [facility] CARDIOLOGY [place], [place] [address] (Wo rk) 09/05/2022 Office Visit Cardiology Trinity Reid MD [facility] CARDIOLOGY [place], [place] [address] (Wo rk) documented as of [...] Organization Address City/State/ZIP Code Phon e Number [place], [place] documented in this encounter Visit Diagnoses Not on filedocumented in this encounter Care Teams Clinical Data Coordinator Relationship Specialty Start Date End Date Bobby Das MD PCP - General 10/02/[address] [place] [address] [place] [address] documented as of this encounter
--- OUTSIDE RECORDS SUMMARY | 2022-07-12 09:41 | XMS_ITS | Encounter Summary ---
:1940 Author Organization [facility] [place] [address] Care Team Providers Name Role Phone Bobby Das MD Primary Care Provider Reason for Referral Diagnostic Test (Routine) - Specialty Diagnoses / Procedures Referred By Contact Refer ramila To Contact Radiology Diagnoses Chest pain, unspecified type Chronic abdominal pain Chano Rebolledo MD [facility] Rad Ct Scan Procedures CT Chest w Contrast CT Chest wo Contrast (Generic) [facility] [place] [address] [place] [address] Referral ID Status Reason Start Date Expiration Visits Visits Date Requested Authorized [id number] Specialty 12/13/2016 12/13/2017 1 1 Service Requested Consultation (Routine) - Closed Specialty Diagnoses / Procedures Referred By Contact Refer ramila To Contact Neurology Diagnoses Radiculopathy of cervical region Chaon Rebolledo MD [facility] Neurology 3c [facility] [place] [address] [place] [address] Referral ID Status Reason Start Date Expiration Date Visits V isits Requested Authorized [id number] Closed Test Only 12/13/2016 12/13/2017 1 1 Diagnostic Test (Routine) - Closed Specialty Diagnoses / Procedures Referred By Contact Refer red To Contact Radiology Diagnoses Chest pain, unspecified type Chronic abdominal pain Chano Rebolledo MD [facility] Rad Ct Scan Procedures CT Abdomen & Pelvis w Contrast [facility] [place] [address] [place] [address] Referral ID Status Reason Start Date Expiration Date Visits V isits Requested Authorized [id number] Closed Specialty 12/13/2016 12/13/2017 1 1 Service Requested Reason for Visit Reason Comments Pain Management Neck Pain Bilateral Arm Pain burning across sternum and r ibs, both sides Consultation (Routine) - Closed Specialty Diagnoses / Procedures Referred By Contact Refer red To Contact Pain Management Diagnoses cervical radiculopathy Bobby Das MD [facility] [address] [place] [address] [address] [place], [place] [address] [address] [place] [address] Fax: Referral ID Status Reason Start Date Expiration Date Visits V isits Requested Authorized [id number] Closed Consult, 11/22/2016 11/22/2017 1 1 Test & Treat Encounter Details Date Type Department Care Team Description 12/13/2016 Office Visit Pain Management at [facility], Chest adrianna n, unspecified type; Jose Sullivan MD Chronic abdominal pain; [facility] Radiculop athy of cervical region [facility] [address] [place], [place] [address] [place] [address] Social History Tobacco Use Types [...] Rebolledo MD - 12/13/2016 1:00 PM EST [facility] [place] [address] Phone: PAIN MANAGEMENT NEW PATIENT / CONSULTATION NOTE DATE OF VISIT 12/13/2016 Patient Koko Zamora 1940 REFERRING PROVIDER Bobby Das MD [address] [place] [address] [place] [address] PRIMARY CARE PROVIDER Bobby Das MD CHIEF [...] Aspirin Other (See Comments) 06/28/2011 MEDICATIONS [place] Prescription Monitoring Program were checked & no [...] restless FUNCTIONAL /SOCIAL Lives with: 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 Follow up: -Patient will be called after results are obtained. Koko J Zamora had the opportunity to ask questions and indicated that all questions were answered to his satisfaction. Thank you for this referral, Bobby Das MD [address] [place] [phone]. Chano Rebolledo MD Leonel Orozco MD - [...] MD [facility] DR GASTROENTEROLOGY DEPT [place], [place] [address] (Wo rk) 09/05/2022 Appointment Cardiology Trinity Reid MD [facility] CARDIOLOGY [place], [place] [address] (Wo rk) 09/05/2022 Office Visit Cardiology Trinity Reid MD [facility] CARDIOLOGY [place], [place] [address] (Wo rk) Scheduled Referrals Name [...] site documented in this encounter Care Teams Welder/Fitter Relationship Specialty Start Date End Date Bobby Das MD PCP - General 10/02/[address] [place] [address] [place] [phone] documented as of this encounter
--- OUTSIDE RECORDS SUMMARY | 2022-07-12 09:41 | XMS_ITS | Encounter Summary ---
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, sequela Closed compression fracture of L1 lumbar vertebra with delayed healing, subsequent encounter Malignant neoplasm of prostate Zbigniew Thompson PA [facility] Interventionl Rad Procedures IR Vertebroplasty Lumbar Multiple Levels IR Vertebral Augmentation Lumbar Single Level [facility] [place] [address] [place] [address] Fax: Referral ID Status Reason Start Date Expiration Date Visits V isits Requested Authorized [id number] Closed Specialty 07/13/2019 07/12/2020 1 1 Service Requested iagnostic Test (Routine) - Closed Specialty Diagnoses / Procedures Referred By Contact Refer red To Contact Radiology Diagnoses Closed compression fracture of L1 lumbar vertebra with delayed healing, subsequent encounter Malignant neoplasm of prostate Zbigniew Thompson PA [facility] Interventionl Rad Procedures [place] [address] [place] [address] Fax: Referral ID Status Reason Start Date Expiration Date Visits V isits Requested Authorized [id number] Closed Specialty 07/13/2019 07/12/2020 1 1 Service Requested Reason for Visit Diagnostic Test (Routine) - Closed Specialty Diagnoses / Procedures Referred By Contact Refer red To Contact Radiology Diagnoses 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, sequela Closed compression fracture of L1 lumbar vertebra with delayed healing, subsequent encounter Malignant neoplasm of prostate Zbigniew Thompson, PA [facility] Interventionl Rad Procedures IR Vertebroplasty Lumbar Multiple Levels IR Vertebral Augmentation Lumbar Single Level [facility] [place] [address] [place] [address] Fax: Referral ID Status Reason Start Date Expiration Date Visits V isits Requested Authorized [id number] Closed Specialty 07/13/2019 07/12/2020 1 1 Service Requested Encounter Details Date Type Department Care Team Description 07/20/2019 Hospital Encounter Radiology at [facility] [place] [place] Elmer Loya, Closed compression fracture of L1 lumbar vertebra with delayed healing, subsequent encounter; [facility] Malignant neoplasm of prostate; Drive [facility] Age-related osteoporosis wit h current pathological fracture of vertebra, sequela [place], [place] CENTER [address] [facility] [phone] [place] [address] Social History Tobacco Use Types Packs/Day Years [...] Martínez RN - 07/20/2019 10:06 AM EDT [facility] Discharge Instructions for Vertebroplasty Your [...] is during regular office hours, please call [phone]. If it is after regular office hours, oron weekends or holidays, please call [phone] and ask to speak to the Armature Repairer on callfor Interventional Radiology. XXX You [...] of : 1940 AGE: 78 y.o. Address: [address] [place] [address] [place] [phone] (home) Mobile: No relevant phone numbers on file. Referring Provider: Zbigniew Thompson REASON FOR VISIT: Order Questions Answers Where will study be performed? [facility] Radiology [120] Specify location Lumbar [...] [facility] GASTROENTEROLOGY DEPT [place], [place] [address] (Wo rk) 09/05/2022 Appointment Cardiology Trinity Reid MD [facility] CARDIOLOGY [place], [place] [address] (Wo rk) 09/05/2022 Office Visit Cardiology Trinity Reid MD [facility] CARDIOLOGY [place], [place] [address] (Wo rk) documented as of [...] made and a 13g a introducer needle (medidametrics) was advanced through the right pedicle and [...] made an d a 13ga introducer needle (medidametrics) was advanced through the left pedicle and [...] ? Electronically signed by: Bobby Sullivan MD, [facility] ([phone]), at 07/20/2019 1:20 PM Procedure Note Bobby [...] made and a 13g a introducer needle (medidametrics) was advanced through the right pedicle and [...] made an d a 13ga introducer needle (medidametrics) was advanced through the left pedicle and [...] For questions regarding this report, please contact [facility] number below. Elmer Loya MD [...] made and a 13g a introducer needle (medidametrics) was advanced through the right pedicle and [...] made an d a 13ga introducer needle (medidametrics) was advanced through the left pedicle and [...] ? Electronically signed by: Bobby Sullivan MD, [facility] ([phone]), at 07/20/2019 1:20 PM Procedure Note Bobby [...] made and a 13g a introducer needle (medidametrics) was advanced through the right pedicle and [...] made an d a 13ga introducer needle (medidametrics) was advanced through the left pedicle and [...] below. Electronically signed by: Bobby Sullivan MD, [facility] ([phone]), at 07/20/2019 1:20 PM Elmer Loya MD IMG IR ORDERABLES Surgical Pathology Report (07/20/2019 10:45 AM EDT) Component Value Ref Test Analysis Performed At [facility] Method Time Signature Surgical [id number] ? [facility] The signing pathologist has (i) [...] Spence MD Verified: ??07/22/2019 ?Pathologist Performed at: ??-[facility] [place] [place] Dept. of Pathology, [place], [place] DISCUSSION Deeper levels into the biopsy [...] Address City/State/[place] [address] Specimen to Pathology (07/20/2019 8:41 AM EDT) Specimen Anatomical Collection Method Collection Time Receive d Time (Source) Location / / Volume Laterality AP Specimen 07/20/2019 8:41 AM 9 8:41 EDT AM EDT Narrative [facility] - 07/20/2019 8:41 AM EDT Specimen requisition ordered. ??Separate Pathology report to follow Elmer Loya MD PATHOLOGY/CYTOLOGY ORDERABLE S Performing Organization Address City/State/[place] [address] documented in this encounter [...] mg documented in this encounter Care Teams Photographic Double Relationship Specialty Start Date End Date Bobby Das MD PCP - General 10/02/[address] [place] [address] [place] [id number] documented as of this encounter
--- OUTSIDE RECORDS SUMMARY | 2022-07-12 09:41 | XMS_ITS | Encounter Summary ---
:1940 Author Organization [facility] [place] [address] Care Team Providers Name Role Phone Bobby Das MD Primary Care Provider Reason for Visit Reason Comments Skin Check Encounter Details Date Type Department Care Team Description 03/29/2014 Office Visit Dermatology at [facility], Kyle c ell carcinoma (Primary Dx); Nba CARCAMO Verruca vulgaris; [address] [place] (actinic keratosis) [facility] B DERMATOLOGY [place], [place] [phone] Social History Tobacco Use Types Packs/Day Years [...] sun over the years. He lives in [place], [place]. Physical examination reveals a pleasant, 73-year-old gentleman who has a pearly, 1-cm papule on the right lateral canthus, site A; and a pearly papule about 8 mm in diameter, site C, on the right zoroastrianism at the scalp line. At the central [...] BCCAs, right lateral canthus and right lateral zoroastrianism, sites A and C, respectively. a. After [...] 08/08/2022 Office Visit Gastroenterology eNgra Collins MD [facility] GASTROENTEROLOGY DEPT [place], [place] [address] (Wo rk) 09/05/2022 Appointment Cardiology Trinity Reid MD [facility] CARDIOLOGY [place], [place] [address] (Wo rk) 09/05/2022 Office Visit Cardiology Trinity Reid MD [facility] CARDIOLOGY [place], [place] [address] (Wo rk) documented as of this encounter Visit Diagnoses Diagnosis Basal cell carcinoma - Primary Basal cell carcinoma of skin, site unspe cified Verruca vulgaris Viral warts, unspecified [place] (actinic keratosis) Actinic keratosis documented in this encounter Care Teams Choir Leader Relationship Specialty Start Date End Date Bobby Das MD PCP - General 10/02/[address] [place] [address] [place] [address] documented as of this encounter
--- OUTSIDE RECORDS SUMMARY | 2022-07-12 09:41 | XMS_ITS | Encounter Summary ---
:1940 Author Organization [facility] [place] [address] Care Team Providers Name Role Phone Bobby Das MD Primary Care Provider Encounter Details Date Type Department Care Team Description 08/06/2020 Ancillary Procedure Radiology at [facility] Amy Grimaldo [address] [place] [address] [address] [phone] NEUROSURGERY-N Jovanny [place], [place] [address] Social History Tobacco Use Types [...] Collins MD [facility] GASTROENTEROLOGY DEPT [place], [place] [address] (Wo rk) 09/05/2022 Appointment Cardiology Trinity Reid MD [facility] CARDIOLOGY [place], [place] [address] (Wo rk) 09/05/2022 Office Visit Cardiology Trinity Reid MD [facility] CARDIOLOGY [place], [place] [address] (Wo rk) documented as of [...] Organization Address City/State/ZIP Code Phon e Number [place], [place] documented in this encounter Visit Diagnoses Not on filedocumented in this encounter Care Teams Vehicle Upholsterer Relationship Specialty Start Date End Date Bobby Das MD PCP - General 10/02/[address] [place] [address] [place] [phone] documented as of this encounter
--- OUTSIDE RECORDS SUMMARY | 2022-07-12 09:41 | XMS_ITS | Encounter Summary ---
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 Chano Rebolledo MD [facility] Thoracic Surg [address] [place] [address] [place] [address] [place] [address] Phone: Fax: Referral ID Status Reason Start Date Expiration Date Visits V isits Requested Authorized [id number] Denied Consult, 12/18/2016 12/18/2017 1 0 Test & Treat Encounter Details Date Type Department Care Team Description 12/18/2016 Telephone Pain Management at Chano Freitas [place] [address] PAIN CLINIC [phone] [place], [place] [address] (Wo rk) Social History Tobacco [...] I will make a heme/oncology consultation with [facility] for the patient in the meantime. documented in this encounter Plan of Treatment Upcoming Encounters Date Type Specialty Care Team Description 08/08/2022 Office Visit Gastroenterology Negra Collins MD [facility] GASTROENTEROLOGY DEPT [place], [place] [address] (Wo rk) 09/05/2022 Appointment Cardiology Trinity Reid MD [facility] CARDIOLOGY [place], [place] [address] (Wo rk) 09/05/2022 Office Visit Cardiology Trinity Reid MD [facility] CARDIOLOGY [place], [place] [address] (Wo rk) Scheduled Referrals Name Type Priority Associated Diagnoses Order S chedule Referral to Outpatient Referral Routine Neoplasm of Ordered: Hematology and uncertain behavior 017 Oncology of respiratory organ documented as of this encounter Visit Diagnoses Diagnosis 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
--- OUTSIDE RECORDS SUMMARY | 2022-07-12 09:41 | XMS_ITS | Encounter Summary ---
:1940 Author Organization [facility] [place] [address] Care Team Providers Name Role Phone Bobby Das MD Primary Care Provider Encounter Details Date Type Department Care Team Description 09/22/2020 Telephone Pain and Spine Leon reid at [facility] [place] [address] Social History Tobacco Use Types Packs/Day Years Used Date Current Some Day Smoker Cigarettes 1 50 Smokeless Tobacco: Never Used Alcohol Use Standard Drinks/Week Comments Yes 44 (1 standard drink = 0.6 oz pure alcoh ol) Sex Assigned at Date Recorded Not on file documented as of this encounter Miscellaneous Notes Telephone Encounter - Negar Butt RN - 09/22/2020 11:08 AM EST [...] Collins MD [facility] GASTROENTEROLOGY DEPT [place], [place] [address] (Wo rk) 09/05/2022 Appointment Cardiology Trinity Reid MD [facility] CARDIOLOGY [place], [place] [address] (Wo rk) 09/05/2022 Office Visit Cardiology Trinity Reid MD [facility] CARDIOLOGY [place], [place] [address] (Wo rk) documented as of this encounter Visit Diagnoses Not on filedocumented in this encounter Care Teams Dry Cleaning Supervisor Relationship Specialty Start Date End Date Bobby Das MD PCP - General 10/02/[address] [place] [address] [place] [phone] documented as of this encounter
--- OUTSIDE RECORDS SUMMARY | 2022-07-12 09:41 | XMS_ITS | Encounter Summary ---
:1940 Author Organization [facility] [place] [address] Care Team Providers Name Role Phone Bobby Das MD Primary Care Provider Encounter Details Date Type Department Care Team Description 12/20/2016 Telephone Pain Management at [facility] Kristin Schultz, [facility] [place] [address] Social History Tobacco Use Types Packs/Day Years Used Date Current Some Day Smoker 1 50 Smokeless Tobacco: Never Used Sex Assigned at Date Recorded Not on file documented as of this encounter Miscellaneous Notes Telephone Encounter - Kristin Schultz LPN - 12/20/2016 11:02 AM EST Pt called requesting that the Referral to Hematology and Oncology be sent to [facility] [place] [place] home. Will Follow up up with the pain clinic after appointment. documented in this encounter Plan of Treatment Upcoming Encounters Date Type Specialty Care Team Description 08/08/2022 Office Visit Gastroenterology Negra Collins MD [facility] GASTROENTEROLOGY DEPT [place], [place] [address] (Wo rk) 09/05/2022 Appointment Cardiology Trinity Reid MD [facility] CARDIOLOGY [place], [place] [address] (Wo rk) 09/05/2022 Office Visit Cardiology Trinity Reid MD [facility] CARDIOLOGY [place], [place] [address] (Wo rk) documented as of this encounter Visit Diagnoses Not on filedocumented in this encounter Care Teams Safety And Health Manager Relationship Specialty Start Date End Date Bobby Das MD PCP - General 10/02/[address] [place] [address] [place] [phone] documented as of this encounter
--- OUTSIDE RECORDS SUMMARY | 2022-07-12 09:41 | XMS_ITS | Encounter Summary ---
:1940 [address] [facility] [place] [address] Care Team Providers Name Role Phone Bobby Das MD Primary Care Provider Encounter Details Date Type Department Care Team Description 05/15/2022 Ancillary Procedure Radiology Library at [facility], Lavell Butt, [facility] [place] [address] VASCULAR SURGERY [phone] [place] [id number] (Wo rk) Social History Tobacco Use Types [...] [facility] DR GASTROENTEROLOGY DEPT [place], [place] [address] (Wo rk) 09/05/2022 Appointment Cardiology Trinity Reid MD [facility] CARDIOLOGY [place], [place] [address] (Wo rk) 09/05/2022 Office Visit Cardiology Triinty Reid MD [facility] CARDIOLOGY [place], [place] [address] (Wo rk) documented as of [...] Organization Address City/State/ZIP Code Phon e Number [place], [place] documented in this encounter Visit Diagnoses Not on filedocumented in this encounter Care Teams Head Still Operator Relationship Specialty Start Date End Date Bobby Das MD PCP - General 10/02/[address] [place] [address] [place] [phone] documented as of this encounter
--- OUTSIDE RECORDS SUMMARY | 2022-07-12 09:41 | XMS_ITS | Encounter Summary ---
:1940 Author Organization [facility] [place] [address] Care Team Providers Name Role Phone Bobby Das MD Primary Care Provider Reason for Referral Diagnostic Test (Routine) - Closed Specialty Diagnoses / Procedures Referred By Contact Refer red To Contact Radiology Diagnoses Compression fracture of T9 vertebra, initial encounter Alphonso Esquivel DO [facility] Interventionl Rad Procedures IR Vertebroplasty Thoracic [facility] [place] [address] [place] [address] Referral ID Status Reason Start Date Expiration Date Visits V isits Requested Authorized [id number] Closed Specialty 10/13/2020 04/13/2022 1 1 Service Requested Reason for Visit Diagnostic Test (Routine) - Closed Specialty Diagnoses / Procedures Referred By Contact Refer red To Contact Radiology Diagnoses Compression fracture of T9 vertebra, initial encounter Alphonso Esquivel DO [facility] Interventionl Rad Procedures IR Vertebroplasty Thoracic [facility] [place] [address] [place] [address] Referral ID Status Reason Start Date Expiration Date Visits V isits Requested Authorized [id number] Closed Specialty 10/13/2020 04/13/2022 1 1 Service Requested Encounter Details Date Type Department Care Team Description 10/25/2020 Hospital Encounter Radiology at [facility] Esquivel, Alphonso R, Compression fracture [facility] DO of T9 vertebra, Drive [facility] initial encounter [place], [place] CENTER [address] DIAGNOSTIC [phone] [place] [address] Social History Tobacco Use Types Packs/Day Years [...] Vargas RN - 10/25/2020 9:13 AM EST [facility] Discharge Instructions for Vertebroplasty Your [...] is during regular office hours, please call [phone]. If it is after regular office hours, oron weekends or holidays, please call [phone] and ask to speak to the Hair Spinner on callfor Interventional Radiology. XXX You have [...] documented as of this encounter Progress Notes lGadys Corral RN - 10/20/2020 2:57 PM EST [facility] N[facility] DATABASE Name: ETTA BAH Date of : 1940 AGE: 80 y.o. Address: [address] [place] [phone] (home) Mobile: No relevant phone numbers on file. Referring Provider: Alphonso Esquivel REASON FOR VISIT: Order Questions Answers Where will study be performed? [facility] Radiology [120] Is the patient on [...] [facility] GASTROENTEROLOGY DEPT [place], [place] [address] (Wo rk) 09/05/2022 Appointment Cardiology Trinity Reid MD [facility] CARDIOLOGY [place], [place] [address] (Wo rk) 09/05/2022 Office Visit Cardiology Trinity Reid MD [facility] CARDIOLOGY [place], [place] [address] (Wo rk) documented as of [...] and a 13g a introducer needle (Digital Guardian) was advanced through the right pedicle and t o the ??T9 vertebral body during an intermittent fluoroscopic guidance. The Digital Guardian biopsy cannula was advanced through the introducer [...] was made and a 13ga introducer needle (Expensify) was advanced through the left pedicle and [...] the interservice administration of fentanyl and Versed [facility] continuous monitoring of blood pressure, oxygenation [...] and a 13g a introducer needle (Digital Guardian) was advanced through the right pedicle and t o the T9 vertebral body during an intermittent fluoroscopic guidance. The Doran biopsy cannula was advanced through the introducer [...] was made and a 13ga introducer needle (Expensify) was advanced through the left pedicle and [...] [facility] Method Time Signature Surgical [id number] ? Location: [address] [place] [address] Pathology ZEARING Report The signing pathologist has (i) examined [...] Bone & Soft Tissue Pathologist Performed at: ??-[facility] Dept. of Pathology, [place], [place] DISCUSSION I see no neoplastic process [...] DO PATHOLOGY/CYTOLOGY ORDERABLE S Performing Organization Address City/[facility]/[place]IP [place] [address] Specimen to Pathology (10/25/2020 8:26 AM EST) Specimen Anatomical Collection Method Collection Time Receive d Time (Source) Location / / Volume Laterality AP Specimen 10/25/2020 8:26 AM 0 8:26 EST AM EST Narrative [facility] - 10/25/2020 8:26 AM EST Specimen requisition ordered. ??Separate Pathology report to follow Alphonso Esquivel DO PATHOLOGY/CYTOLOGY ORDERABLE S Performing Organization Address City/[facility] Code Phon e Number [address] documented in this encounter [...] Procedure) documented in this encounter Care Teams Director Radio Relationship Specialty Start Date End Date Bobby Das MD PCP - General 10/02/[address] [place] [address] [place] [phone] documented as of this encounter
--- OUTSIDE RECORDS SUMMARY | 2022-07-12 09:41 | XMS_ITS | Encounter Summary ---
:1940 Author Organization [facility] [place] [address] Care Team Providers Name Role Phone Bobby Das MD Primary Care Provider Reason for Visit Reason Comments Basal Cell Carcinoma Consultation (Routine) - Closed Specialty Diagnoses / Procedures Referred By Contact Refer red To Contact Dermatology Diagnoses REQUESTING MOHS PROCEDURE RIGHT EYEBROW FOR LESION REMOVED BUT ADDITIONAL TISSUE REMAINS Bobby Das MD Vidal, Nahid Y, MD [address] [place] [address] [place] [address] [place] [address] Fax: Referral ID Status Reason Start Date Expiration Date Visits V isits Requested Authorized [id number] Closed Consult, 06/24/2018 06/24/2019 1 [facility] Encounter Details Date Type Department Care Team Description 09/23/2018 Procedure visit Dermatology at Alvaro Romano, Basal cell carcinoma Nicol CARCAMO (BCC) of eyebrow [address] [facility] [address] [place] [address] [phone] Social History Tobacco Use Types Packs/Day Years [...] EST Your staff surgeon today was Alvaro lLanos MD. Your wound(s) was repaired by sizk-oi-rpmk stitches called a primary repair. You do [...] until your sutures are removed. 5. Some assisted living home director may need to be delayed or delegated [...] as often as is recommended by your car driver, for new skin cancers. This is once [...] it. If after hours, please call the pattern data operator or [phone] and ask for the car driver on-call. If you have any non-urgent questions or concerns, please feel free to call my office or contact me through our patient portal, Ide[employer], at [email or web address] How to contact us during business hours Dermatology at [facility]: Mohs scheduling or Mohs follow-up appointments: [phone] documented in this encounter Progress Notes Alvaro [...] Who lives with patient (i.e. spouse, children, intermediate/long term)? Spouse Relevant travel history or future plans: [...] follow up with his or her referring car driver or other skin provider. Summary of Procedure(s): [...] Date: 09/23/2018 Staff Surgeon: Alvaro Llanos MD Nursing/Concentrator Operator(s): Assistants: Cassy Jacobson LPN, Jolene Pretty RN, Yolanda Fraser LPN, Savanah Licea CMA Casting Carrier (s): Cristina Cisneros Amanda Isenor Pre-operative diagnosis: [...] The site was confirmed with the patient/authorized bilingual sales representative/referring physician and/or a photograph form [...] Right eyebrow Indication: repair of wound for druze of function/anatomy Final Defect size: 1.5 x [...] Negra Collins MD [facility] GASTROENTEROLOGY [place] [address] (Wo rk) 09/05/2022 Appointment Cardiology Trinity Reid MD [facility] ER CARDIOLOGY [place], [place] [address] (Wo rk) 09/05/2022 Office Visit Cardiology Trinity Reid MD [facility] CARDIOLOGY [place], [place] [address] (Wo rk) documented as of this encounter Visit Diagnoses Diagnosis Basal cell carcinoma (BCC) of eyebrow documented in this encounter Care Teams Missileman Relationship Specialty Start Date End Date Bobby Das MD PCP - General 10/02/[address] [place] [address] [place] [address] documented as of this encounter
--- OUTSIDE RECORDS SUMMARY | 2022-07-12 09:41 | XMS_ITS | Encounter Summary ---
:1940 Author Organization [facility] Address [facility] [place] [address] Care Team Providers Name Role Phone Bobby Das MD Primary Care Provider Reason for Visit - Closed Specialty Diagnoses / Procedures Referred By Contact Refer red To Contact Procedures Bobby Das MD Film Library- Storage Only [address] [place] [phone] Referral ID Status Reason Start Date Expiration Date Visits Requ ested Visits Authorized [id number] Closed 02/23/2021 02/23/2022 1 1 Encounter Details Date Type Department Care Team Description 02/20/2021 Ancillary Procedure Radiology Library at Bobby Almaguer MD [address] [phone] (Rebekah rojas) Social History Tobacco Use Types [...] Negra Collins MD [facility] DR GASTROENTEROLOGY DEPT [place], [place] [address] (Wo rk) 09/05/2022 Appointment Cardiology Trinity Reid MD [facility] ER CARDIOLOGY [place], [place] [address] (Wo rk) 09/05/2022 Office Visit Cardiology Trinity Reid MD [facility] ER CARDIOLOGY [place], [place] [address] (Wo rk) documented as of [...] Organization Address City/State/ZIP Code Phon e Number [place], [place] documented in this encounter Visit Diagnoses Not on filedocumented in this encounter Care Teams Story Writer Relationship Specialty Start Date End Date Bobby Das MD PCP - General 10/02/[address] [place] [address] [place] [phone] documented as of this encounter
--- OUTSIDE RECORDS SUMMARY | 2022-07-12 09:41 | XMS_ITS | Encounter Summary ---
:1940 Author Organization [facility] [place] [address] Care Team Providers Name Role Phone Bobby Das MD Primary Care Provider Reason for Referral Diagnostic Test (Routine) - Specialty Diagnoses / Procedures Referred By Contact Refer red To Contact Radiology Diagnoses Chest pain, unspecified type Chronic abdominal pain Chano Rebolledo MD [facility] Rad Ct Scan Procedures CT Chest w Contrast CT Chest wo Contrast (Generic) [facility] [place] [address] [place] [address] Referral ID Status Reason Start Date Expiration Visits Visits Date Requested Authorized [id number] Specialty 12/13/2016 12/13/2017 1 1 Service Requested Diagnostic Test (Routine) - Closed Specialty Diagnoses / Procedures Referred By Contact Refer red To Contact Radiology Diagnoses Chest pain, unspecified type Chronic abdominal pain Chano Rebolledo MD [facility] Rad Ct Scan Procedures CT Abdomen & Pelvis w Contrast [place] [address] [place] [address] Referral ID Status Reason Start Date Expiration Date Visits V isits Requested Authorized [id number] Closed Specialty 12/13/2016 12/13/2017 1 1 Service Requested Reason for Visit Diagnostic Test (Routine) - Closed Specialty Diagnoses / Procedures Referred By Contact Refer red To Contact Radiology Diagnoses Chest pain, unspecified type Chronic abdominal pain Chano Rebolledo MD [facility] Rad Ct Scan Procedures CT Abdomen & Pelvis w Contrast [facility] [place] [address] [place] [address] Referral ID Status Reason Start Date Expiration Date Visits V isits Requested Authorized [id number] Closed Specialty 12/13/2016 12/13/2017 1 1 Service Requested Encounter Details Date Type Department Care Team Description 12/17/[address] Scan at [facility] Fanciullo, Chest pain, unspecified type ; [facility] Leonel Sullivan MD Chronic abdominal pain [facility] [address] PAIN CLINIC [phone] [place] [address] Social History Tobacco Use Types [...] [facility] GASTROENTEROLOGY DEPT [place], [place] [address] (Wo rk) 09/05/2022 Appointment Cardiology Trinity Reid MD [facility] [address] [place], [place] [address] (Wo rk) 09/05/2022 Office Visit Cardiology Trinity Reid MD [facility] [address] [place], [place] [address] (Wo rk) documented as of [...] 1237 documented in this encounter Care Teams Manufacturing Inspector Relationship Specialty Start Date End Date Bobby Das MD PCP - General 10/02/[address] [place] [address] [place] [address] documented as of this encounter
--- OUTSIDE RECORDS SUMMARY | 2022-07-12 09:41 | XMS_ITS | Encounter Summary ---
:1940 Author Organization [facility] Address [facility] [place] [address] Care Team Providers Name Role Phone Bobby Das MD Primary Care Provider Reason for Visit Reason Onset Date Comments Other 07/19/2011 Encounter Details Date Type Department Care Team Description 07/19/2011 Telephone Cardiology at [facility] Chet Nicole MD [facility] [address] CARDIOLOGY DEPT. [phone] [place], [place] [address] (Wo rk) Social History Tobacco [...] MD [facility] GASTROENTEROLOGY DEPT [place], [place] [address] (Wo rk) 09/05/2022 Appointment Cardiology Trinity Reid MD [facility] ER CARDIOLOGY [place], [place] [address] (Wo rk) 09/05/2022 Office Visit Cardiology Trinity Reid MD [facility] ER CARDIOLOGY [place], [place] [address] (Wo rk) documented as of this encounter Visit Diagnoses Not on filedocumented in this encounter Care Teams Community Service Representative Relationship Specialty Start Date End Date Bobby Das MD PCP - General 10/02/[address] [place] [address] [place] [phone] documented as of this encounter
--- OUTSIDE RECORDS SUMMARY | 2022-07-12 09:41 | XMS_ITS | Encounter Summary ---
:1940 [place] [address] Care Team Providers Name Role Phone Bobby Das MD Primary Care Provider Encounter Details Date Type Department Care Team Description 07/13/2019 Orders Only Radiology Alan Brink Gastrointestinal [facility] MD Rosa hemorrhage, unspecified [facility] DR hemorrhage type (Primary [id number] RADIOLOGY DEPT Dx) [phone] [place], [place] [address] Social History Tobacco Use Types [...] file Gets together: Not on file Attends jehovah's witness service: Not on file Active member of [...] Collins MD [facility] GASTROENTEROLOGY DEPT [place], [place] [address] (Wo rk) 09/05/2022 Appointment Cardiology Trinity Reid MD [facility] CARDIOLOGY [place], [place] [address] (Wo rk) 09/05/2022 Office Visit Cardiology Trinity Reid MD [facility] CARDIOLOGY [place], [place] [address] (Wo rk) documented as of this encounter Results Prothrombin Time (07/20/2019 8:18 AM EDT) P athologist Signature PT 11.3 9.4 - 12.5 [facility] INR 1.0 [facility] LABORATORY Comment: An INR <2.0 indicates [...] Organization Address City/State/[place] [address] (ABNORMAL) Hemogram (07/20/2019 8:18 AM EDT) Analysis Performed At Patho logist Time Signature WBC 6.0 4.0 - 9.5 [facility] x10(3)/[facility] LABORATORY RBC 4.50 (L) 4.58 - [place] [place] 5.54 [facility] x10(6)/[facility] LABORATORY Hemoglobin 14.8 13.7 - [facility] 16.5 gm/dL [facility] LABORATORY Hematocrit 43.9 40.5 - [facility] 48.5 % [facility] LABORATORY MCV 97.6 (H) 82.9 - [facility] 93.1 fL [facility] LABORATORY MCH 32.9 (H) 27.5 - [facility] 32.1 pg [facility] LABORATORY MCHC 33.7 32.0 - [facility] 35.7 gm/dL [facility] LABORATORY Platelets 164 145 - 357 [facility] x10(3)/[facility] LABORATORY RDWSD 49.3 (H) 36.0 - [facility] 45.0 [facility] LABORATORY RDWCV 13.6 11.4 - [facility] 13.8 % [facility] LABORATORY MPV 10.0 7.6 - 12.9 [facility] LABORATORY nRBC % Auto 0.0 % [facility] LABORATORY nRBC Abs Auto 0.000 0.000 - [facility] 0.000 [facility] x10(3)/[facility] LABORATORY Specimen Anatomical Collection Method Collection Time Receive d Time (Source) Location / / Volume Laterality Blood specimen 07/20/2019 8:18 AM 019 8:21 (specimen) EDT AM EDT Resulting Agency Comment Spec In Lab Bobby Marshall MD HEMATOLOGY ORDERABLES Performing Organization Address City/State/[place] [address] documented in this encounter Visit Diagnoses Diagnosis Gastrointestinal hemorrhage, unspecified gastrointestinal hemorrhage type - Primary documented in this encounter Care Teams Hose Handler Relationship Specialty Start Date End Date Bobby Das MD PCP - General 10/02/[address] [place] [address] [place] [address] documented as of this encounter
--- OUTSIDE RECORDS SUMMARY | 2022-07-12 09:41 | XMS_ITS | Encounter Summary ---
:[address] [facility] [place] [address] Care Team Providers Name Role Phone Bobby Das MD Primary Care Provider Encounter Details Date Type Department Care Team Description 05/15/2022 Ancillary Procedure Radiology Library at [facility] Lavell Butt, [facility], located [facility] [place] [address] VASCULAR SURGERY [phone] [place] [address] (Wo rk) Social History Tobacco Use Types [...] MD [facility] DR GASTROENTEROLOGY DEPT [place], [place] [address] (Wo rk) 09/05/2022 Appointment Cardiology Trinity Reid MD [facility] CARDIOLOGY [place], [place] [address] (Wo rk) 09/05/2022 Office Visit Cardiology Trinity Reid MD [facility] [place]ARDIOLOGY [place] [address] (Wo rk) documented as [...] Organization Address City/State/ZIP Code Phon e Number [place], [place] documented in this encounter Visit Diagnoses Not on filedocumented in this encounter Care Teams Air Conditioning Mechanic Relationship Specialty Start Date End Date Bobby aDs MD PCP - General 10/02/[address] [place] [address] [place] [phone] documented as of this encounter
--- OUTSIDE RECORDS SUMMARY | 2022-07-12 09:41 | XMS_ITS | Encounter Summary ---
:1940 Author Organization [facility] [place] [address] Care Team Providers Name Role Phone Bobby Das MD Primary Care Provider Reason for Visit Reason Comments Basal Cell Carcinoma Encounter Details Date Type Department Care Team Description 08/08/2015 [facility] (basal cell Road MD carcinoma of skin) [address] [place] [address] [facility] [place], [place] [address] Social History Tobacco Use Types [...] Our facility does not offer a guest [employer] network at this time. We also recommend [...] specified we require that you have a transport truck driver, as surgery can be stressful and tiring. If you are being transported from a residential or other similar facility, we request that someone stay with you during this appointment. We are located in the [facility] [place], [place]. Please refer to the [facility] website for detailed driving directions ([email or web address]). When you arrive, please park in the upper parking lot. When you enter the building, go to the third floor, the reception specialist area is located on the left (follow [...] If this fails, contact our office at [phone] (after 5PM please call [phone] and ask for the Text Transcriber reporting consultant). Avoid bending over, heavy lifting (no [...] are taking. Our office phone number is [phone]. documented in this encounter Progress Notes Leo Solo MD - 08/08/2015 1:50 PM EDT MOHS SURGICAL CONSULT Chief Complaint: Basal cell carcinoma History of Present Illness: Referring Physician: Dr. Zheng, [facility] (07/03/15) Tumor type: BCC Location of Skin Cancer: Right evangelical Duration of Presence: 1 year Previous Treatment: [...] acute distress. Skin: Limited examination of right evangelical reveals a 5 mm erythematous papule. Assessment and Plan 1. BCC, right evangelical Reviewed treament options including wide local excision, [...] [facility] DR GASTROENTEROLOGY DEPT [place], [place] [address] (Wo rk) 09/05/2022 Appointment Cardiology Trinity Reid MD [facility] CARDIOLOGY [place], [place] [address] (Wo rk) 09/05/2022 Office Visit Cardiology Trinity Reid MD [facility] CARDIOLOGY [place], [place] [address] (Wo rk) documented as of this encounter Visit Diagnoses Diagnosis BCC (basal cell carcinoma of skin) Basal cell carcinoma of skin, site unspe cified documented in this encounter Care Teams Retail Director Relationship Specialty Start Date End Date Bobby Das MD PCP - General 10/02/[address] [place] [address] [place] [phone] documented as of this encounter
--- OUTSIDE RECORDS SUMMARY | 2022-07-12 09:41 | XMS_ITS | Encounter Summary ---
:1940 Author Organization [facility] [place] [address] Care Team Providers Name Role Phone Bobby Das MD Primary Care Provider Reason for Visit Reason Comments Follow-up Encounter Details Date Type Department Care Team Description 05/31/2014 [facility], [facility] of basal cell Nba CARCAMO carcinoma (Primary [address] Dx) [facility] B DERMATOLOGY [place], [place] [address] [phone] Social History Tobacco Use Types Packs/Day Years Used Date Current Some Day Smoker 1 50 Smokeless Tobacco: Never Used Sex Assigned at Date Recorded Not on file documented as of this encounter Patient Instructions Patient InstructionsSupriya Louis LPN - 05/31/2014 1:34 PM EDT Images from the original note were not included. [facility] Actinic Keratosis: After Your Visit Your Care [...] more? Visit our health information library at [email or web address] You can also view health information on FastCall, your personal patient account. Log in or sign up today. Enter L364 in the search box to learn more about Actinic Keratosis: After Your Visit. ?? [id number] [employer]. Care instructions adapted under license by [facility]. This care instruction is for use with your licensed healthcare professional. If you have questionsabout a medical condition or this instruction, always ask your healthcare professional. [employer] disclaims any warranty or liability for your use of this information. Content Version: [id number]; Last Revised: December 22, 2012 documented in this encounter Progress Notes Hammer, Cy J, MD - 05/31/2014 2:08 PM EDT Problem: Follow up for repeat skin checkup. Shadi follows up after last being seen in March. At that time, I removed using shave C and D a BCCA from the right lateral canthus and a BCCA from the right lateral jainism. I also treated a verruca vulgaris on [...] Collins MD [facility] GASTROENTEROLOGY DEPT [place], [place] [address] (Wo rk) 09/05/2022 Appointment Cardiology Trinity Reid MD [facility] [address] [place], [place] [address] (Wo rk) 09/05/2022 Office Visit Cardiology Trinity Reid MD [facility] [address] [place], [place] [address] (Rebekah rojas) documented as of this encounter Visit Diagnoses Diagnosis History of basal cell carcinoma - Primar y Personal history of other malignant neop lasm of skin documented in this encounter Care Teams Roll Line Operator Relationship Specialty Start Date End Date Bobby Das MD PCP - General 10/02/[address] [place] [address] [place] [phone] documented as of this encounter
--- OUTSIDE RECORDS SUMMARY | 2022-07-12 09:41 | XMS_ITS | Encounter Summary ---
:1940 Author Organization [facility] [place] [address] Care Team Providers Name Role Phone Bobby Das MD Primary Care Provider Encounter Details Date Type Department Care Team Description 09/18/2018 Telephone Dermatology at [facility] Yolanda Fraser RN [address] [place] [address] Social History Tobacco Use Types Packs/Day [...] Who lives with patient (i.e. spouse, children, alf/care home)? Spouse Relevant travel history or future plans: [...] MD [facility] GASTROENTEROLOGY DEPT [place], [place] [address] (Wo rk) 09/05/2022 Appointment Cardiology Trinity Reid MD [facility] CARDIOLOGY [place], [place] [address] (Wo rk) 09/05/2022 Office Visit Cardiology Trinity Reid MD [facility] CARDIOLOGY [place], [place] [address] (Wo rk) documented as of this encounter Visit Diagnoses Not on filedocumented in this encounter Care Teams Assistant Plant Control Operator Relationship Specialty Start Date End Date Bobby Das MD PCP - General 10/02/[address] [place] [address] [place] [phone] documented as of this encounter
--- OUTSIDE RECORDS SUMMARY | 2022-07-12 09:41 | XMS_ITS | Encounter Summary ---
:1940 [place] [address] Care Team Providers Name Role Phone Bobby Das MD Primary Care Provider Encounter Details Date Type Department Care Team Description 08/25/2015 Telephone Dermatology at [facility] Gloria Ferrell MD [address] [facility] [place] [address] [facility] [phone] [place], [place] [address] (Wo rk) Social History Tobacco [...] [facility] DR GASTROENTEROLOGY DEPT [place], [place] [address] (Wo rk) 09/05/2022 Appointment Cardiology Trinity Reid MD [facility] CARDIOLOGY [place], [place] [address] (Wo rk) 09/05/2022 Office Visit Cardiology Trinity Reid MD [facility] CARDIOLOGY [place], [place] [address] (Wo rk) documented as of this encounter Visit Diagnoses Not on filedocumented in this encounter Care Teams Automotive Mechanic Relationship Specialty Start Date End Date Bobby Das MD PCP - General 10/02/[address] [place] [address] [place] [phone] documented as of this encounter
--- OUTSIDE RECORDS SUMMARY | 2022-07-12 09:41 | XMS_ITS | Encounter Summary ---
:1940 Author Organization [facility] [place] [address] Care Team Providers Name Role Phone Bobby Das MD Primary Care Provider Reason for Visit Reason Comments Suture / Staple Removal Encounter Details Date Type Department Care Team Description 08/31/2015 Clinical Support Dermatology at [facility] Visit for suture Heat Nicol Estrella MD removal [address] [facility] [address] [facility] [phone] RD-DERMATOLOGY [place] [id number] Social History Tobacco Use Types Packs/Day Years Used Date Current Some Day Smoker 1 50 Smokeless Tobacco: Never Used Sex Assigned at Date Recorded Not on file documented as of this encounter Progress Notes Jeni Franco LPN - 08/31/2015 2:47 PM EDT HPI: Patient is a 74 y.o. male with history of basal cell carcinoma, right yazidi, s/p Mohs repairedby transposition flap repair who is presenting for suture removal. Denies complications. Exam: General: No acute distress Skin: Limited examination of right yazidi shows a well-healed flap. There is no erythema, dehiscence, ecchymosis, or drainage. Assessment and Plan 1. Basal cell carcinoma, right yazidi, s/p Mohs repaired by transposition flap repair [...] Gastroenterology Negra Collins MD [facility] GASTROENTEROLOGY DEPT [place], [place] [address] (Wo rk) 09/05/2022 Appointment Cardiology Trinity Reid MD [facility] CARDIOLOGY [place], [place] [address] (Wo rk) 09/05/2022 Office Visit Cardiology Trinity Reid MD [facility] CARDIOLOGY [place], [place] [address] (Wo rk) documented as of this encounter Visit Diagnoses Diagnosis Visit for suture removal Encounter for removal of sutures documented in this encounter Care Teams Lumber Stacker Relationship Specialty Start Date End Date Bobby Das MD PCP - General 10/02/[address] [place] [address] [place] [phone] documented as of this encounter
--- OUTSIDE RECORDS SUMMARY | 2022-07-12 09:41 | XMS_ITS | Encounter Summary ---
:1940 Author Organization [facility] Address [facility] [place] [address] Care Team Providers Name Role Phone Bobby Das MD Primary Care Provider Reason for Visit Reason Comments Shortness of Breath Encounter Details Date Type Department Care Team Description 12/24/2011 Office Visit [facility] Torrey Giang SOB (shortness of 189 Destin Bradley Mendoza MD breath) (Primary Dx) [facility] [phone] CARDIOLOGY DEPT. [place], [place] [address] Social History Tobacco Use Types Packs/Day Years [...] Negra Collins MD [facility] GASTROENTEROLOGY DEPT [place], [place] [address] (Wo rk) 09/05/2022 Appointment Cardiology Trinity Reid MD [facility] CARDIOLOGY [place], [place] [address] (Wo rk) 09/05/2022 Office Visit Cardiology Trinity Reid MD [facility] CARDIOLOGY [place], [place] [address] (Wo rk) documented as of this encounter Visit Diagnoses Diagnosis SOB (shortness of breath) - Primary Shortness of breath documented in this encounter Care Teams Cell Feed Department Supervisor Relationship Specialty Start Date End Date Bobby Das MD PCP - General 10/02/[address] [place] [address] [place] [phone] documented as of this encounter
--- OUTSIDE RECORDS SUMMARY | 2022-07-12 09:41 | XMS_ITS | Encounter Summary ---
:1940 Author Organization [facility] [place] [address] Care Team Providers Name Role Phone Bobby Das MD Primary Care Provider Encounter Details Date Type Department Care Team Description 08/06/2020 Ancillary Procedure Radiology at [facility] Amy Grimaldo [address] [place] [address] 10 LITTLE JAY [phone] NEUROSURGERY-N Jovanny [place], [place] [address] Social History Tobacco Use Types [...] OF [facility] GASTROENTEROLOGY DEPT [place], [place] [address] (Wo rk) 09/05/2022 Appointment Cardiology Trinity Reid MD [facility] CARDIOLOGY [place], [place] [address] (Wo rk) 09/05/2022 Office Visit Cardiology Trinity Reid MD [facility] CARDIOLOGY [place], [place] [address] (Wo rk) documented as of [...] Organization Address City/State/ZIP Code Phon e Number [place], [place] documented in this encounter Visit Diagnoses Not on filedocumented in this encounter Care Teams Process Manager Relationship Specialty Start Date End Date Bobby Das MD PCP - General 10/02/[address] [place] [address] [place] [phone] documented as of this encounter
--- OUTSIDE RECORDS SUMMARY | 2022-07-12 09:41 | XMS_ITS | Encounter Summary ---
:1940 Author Organization [facility] [place] [address] Care Team Providers Name Role Phone Bobby Das MD Primary Care Provider Encounter Details Date Type Department Care Team Description 12/13/2016 Telephone Pain Management [place] [address] Social History Tobacco Use Types Packs/Day [...] Gastroenterology Negra Collins MD [facility] DR GASTROENTEROLOGY DEPT [place], [place] [address] (Wo rk) 09/05/2022 Appointment Cardiology Trinity Reid MD [facility] CARDIOLOGY [place], [place] [address] (Wo rk) 09/05/2022 Office Visit Cardiology Trinity Reid MD [facility] CARDIOLOGY [place], [place] 0[address] (Wo rk) documented as of this encounter Visit Diagnoses Not on filedocumented in this encounter Care Teams Shovel Engineer Relationship Specialty Start Date End Date Bobby Das MD PCP - General 10/02/[address] [place] [address] [place] [phone] documented as of this encounter
--- OUTSIDE RECORDS SUMMARY | 2022-07-12 09:41 | XMS_ITS | Encounter Summary ---
:1940 Author Organization [facility] [place] [address] Care Team Providers Name Role Phone Bobby Das MD Primary Care Provider Encounter Details Date Type Department Care Team Description 08/28/2020 Ancillary Procedure Radiology at [facility] Amy Grimaldo [address] [place] [address] 10 LITTLE JAY [phone] NEUROSURGERY-N [place], [place] [address] Social History Tobacco Use Types [...] MD [facility] GASTROENTEROLOGY DEPT [place], [place] [address] (Wo rk) 09/05/2022 Appointment Cardiology Trinity Reid MD [facility] CARDIOLOGY [place], [place] [address] (Wo rk) 09/05/2022 Office Visit Cardiology Trinity Reid MD [facility] CARDIOLOGY [place], [place] [address] (Wo rk) documented as of [...] Organization Address City/State/ZIP Code Phon e Number [place], [place] documented in this encounter Visit Diagnoses Not on filedocumented in this encounter Care Teams Show Girl Relationship Specialty Start Date End Date Bobby Das MD PCP - General 10/02/[address] [place] [address] [place] [phone] documented as of this encounter
--- OUTSIDE RECORDS SUMMARY | 2022-07-12 09:41 | XMS_ITS | Encounter Summary ---
:1940 Author Organization [facility] [place] [address] Care Team Providers Name Role Phone Bobby Das MD Primary Care Provider Reason for Visit Reason Comments Shortness of Breath Encounter Details Date Type Department Care Team Description 09/17/2011 Office Visit [facility] Hosp Torrey Giang SOB (shortness of 189 Destin Bradley Mendoza MD breath) (Primary Dx) [facility] [address] CARDIOLOGY DEPT. [place] [id number] Social History Tobacco Use Types Packs/Day Years [...] Negra Collins MD [facility] GASTROENTEROLOGY DEPT [place], [place] [address] (Wo rk) 09/05/2022 Appointment Cardiology Trinity Reid MD [facility] CARDIOLOGY [place], [place] [address] (Wo rk) 09/05/2022 Office Visit Cardiology Trinity Reid MD [facility] CARDIOLOGY [place], [place] [address] (Wo rk) documented as of [...] breath documented in this encounter Care Teams Presser First Relationship Specialty Start Date End Date Bobby Das MD PCP - General 10/02/[address] [place] [address] [place] [phone] documented as of this encounter
--- OUTSIDE RECORDS SUMMARY | 2022-07-12 09:41 | XMS_ITS | Encounter Summary ---
:1940 Author Organization [facility] Address [facility] [place] [address] Care Team Providers Name Role Phone Bobby Das MD Primary Care Provider Reason for Visit - Closed Specialty Diagnoses / Procedures Referred By Contact Refer red To Contact Procedures Bobby Das MD Film Library- Storage Only DX [address] [place] [phone] Referral ID Status Reason Start Date Expiration Date Visits Requ ested Visits Authorized [id number] Closed 04/13/2021 04/13/2022 1 1 Encounter Details Date Type Department Care Team Description 01/31/2021 Ancillary Procedure Radiology Library at Bobby Almaguer MD [address] [phone] (Rebekah rojas) Social History Tobacco Use Types [...] MD [facility] DR GASTROENTEROLOGY DEPT [place], [place] [address] (Wo rk) 09/05/2022 Appointment Cardiology Trinity Reid MD [facility] CARDIOLOGY [place] [address] (Wo rk) 09/05/2022 Office Visit Cardiology Trinity Reid MD [facility] ER CARDIOLOGY [place] [address] (Wo rk) documented as of this [...] Organization Address City/State/ZIP Code Phon e Number [place], [place] documented in this encounter Visit Diagnoses Not on filedocumented in this encounter Care Teams Ranch Manager Relationship Specialty Start Date End Date Bobby Das MD PCP - General 10/02/[address] [place] [address] [place] [phone] documented as of this encounter
--- OUTSIDE RECORDS SUMMARY | 2022-07-12 09:41 | XMS_ITS | Encounter Summary ---
:1940 Author Organization [facility] [address] Care Team Providers Name Role Phone Bobby Das MD Primary Care Provider Encounter Details Date Type Department Care Team Description 09/06/2020 Ancillary Procedure Radiology at [facility] Amy Grimaldo [address] [place] [address] 10 LITTLE JAY [phone] NEUROSURGERY-N Jovanny [place], [place] [address] Social History Tobacco Use Types [...] OF [facility] GASTROENTEROLOGY DEPT [place], [place] [address] (Wo rk) 09/05/2022 Appointment Cardiology Trinity Reid MD [facility] CARDIOLOGY [place], [place] [address] (Wo rk) 09/05/2022 Office Visit Cardiology Trinity Reid MD [facility] CARDIOLOGY [place], [place] [address] (Wo rk) documented as of [...] Organization Address City/State/ZIP Code Phon e Number [place], [place] documented in this encounter Visit Diagnoses Not on filedocumented in this encounter Care Teams Management Liaison Relationship Specialty Start Date End Date Bobby Das MD PCP - General 10/02/[address] [place] [address] [place] [phone] documented as of this encounter
--- OUTSIDE RECORDS SUMMARY | 2022-07-12 09:41 | XMS_ITS | Encounter Summary ---
:1940 [place] [address] Care Team Providers Name Role Phone Bobby Das MD Primary Care Provider Encounter Details Date Type Department Care Team Description 02/27/2021 Notes Only Radiology Matt Chisholm [place] [address] DIAGNOSTIC RADIOLOGY [phone] [place] [phone] (Wo rk) Social History Tobacco Use Types [...] Negra Collins MD [facility] DR GASTROENTEROLOGY DEPT [place], [place] [address] (Wo rk) 09/05/2022 Appointment Cardiology Trinity Reid MD [facility] CARDIOLOGY [place], [place] [address] (Wo rk) 09/05/2022 Office Visit Cardiology Trinity Reid MD [facility] CARDIOLOGY [place], [place] [address] (Wo rk) documented as of this encounter Visit Diagnoses Not on filedocumented in this encounter Care Teams Open Hearth Stockyard Supervisor Relationship Specialty Start Date End Date Bobby Das MD PCP - General 10/02/[address] [place] [address] [place] [address] documented as of this encounter
--- OUTSIDE RECORDS SUMMARY | 2022-07-12 09:41 | XMS_ITS | Encounter Summary ---
:1940 Author Organization [facility] [place] [address] Care Team Providers Name Role Phone Bobby Das MD Primary Care Provider Encounter Details Date Type Department Care Team Description 12/16/2016 [facility] [place] [address] Social History Tobacco Use Types Packs/Day [...] Collins MD [facility] GASTROENTEROLOGY DEPT [place], [place] [address] (Wo rk) 09/05/2022 Appointment Cardiology Trinity Reid MD [facility] CARDIOLOGY [place], [place] [address] (Wo rk) 09/05/2022 Office Visit Cardiology Trinity Reid MD [facility] CARDIOLOGY [place], [place] [address] (Wo rk) documented as of this encounter Visit Diagnoses Not on filedocumented in this encounter Care Teams Advertising Consultant Relationship Specialty Start Date End Date Bobby Das MD PCP - General 10/02/[address] [place] [address] [place] [phone] documented as of this encounter
--- OUTSIDE RECORDS SUMMARY | 2022-07-12 09:41 | XMS_ITS | Encounter Summary ---
:1940 [place] [address] Care Team Providers Name Role Phone Bobby Das MD Primary Care Provider Encounter Details Date Type Department Care Team Description 10/13/2020 Notes Only Radiology at [facility] Alphonso Esqu[place] [address] DIAGNOSTIC RADIOLOGY [phone] [place] [phone] (Wo rk) Social History Tobacco Use Types [...] MD [facility] GASTROENTEROLOGY DEPT [place], [place] [address] (Wo rk) 09/05/2022 Appointment Cardiology Trinity Reid MD [facility] CARDIOLOGY [place], [place] 0[address] (Wo rk) 09/05/2022 Office Visit Cardiology Trinity Reid MD [facility] CARDIOLOGY [place], [place] 0[address] (Wo rk) documented as of this encounter Visit Diagnoses Not on filedocumented in this encounter Care Teams Pressure Controller Relationship Specialty Start Date End Date Bobby Das MD PCP - General 10/02/[address] [place] [address] [place] [phone] documented as of this encounter
--- OUTSIDE RECORDS SUMMARY | 2022-07-12 09:41 | XMS_ITS | Encounter Summary ---
:1940 Author Organization [facility] [place] [address] Care Team Providers Name Role Phone Bobby Das MD Primary Care Provider Encounter Details Date Type Department Care Team Description 06/16/2019 Ancillary Procedure Radiology Library at Bobby Almaguer MD [facility] [address] [place] [phone] (Wo rk) Social History Tobacco Use Types Packs/Day Years Used Date Current Some Day Smoker 1 50 Smokeless Tobacco: Never Used Sex Assigned at Date Recorded Not on file documented as of this encounter Plan of Treatment Upcoming Encounters Date Type Specialty Care Team Description 08/08/2022 Office Visit Gastroenterology Negra Collins MD [facility] DR GASTROENTEROLOGY DEPT [place], [place] [address] (Wo rk) 09/05/2022 Appointment Cardiology Trinity Reid MD [facility] CARDIOLOGY [place], [place] [address] (Wo rk) 09/05/2022 Office Visit Cardiology Trinity Reid MD [facility] CARDIOLOGY [place], [place] [address] (Wo rk) documented as of [...] Organization Address City/State/ZIP Code Phon e Number [place], [place] documented in this encounter Visit Diagnoses Not on filedocumented in this encounter Care Teams Valve Inspector Relationship Specialty Start Date End Date Bobby Das MD PCP - General 10/02/[address] [place] [address] [place] [address] documented as of this encounter
--- OUTSIDE RECORDS SUMMARY | 2022-07-12 09:42 | XMS_ITS | Encounter Summary ---
:1940 Author Organization [facility] Address [facility] [place] [address] Care Team Providers Name Role Phone Bobby Das MD Primary Care Provider Reason for Visit Reason Comments Shortness of Breath Encounter Details Date Type Department Care Team Description 06/28/2011 Office Visit Cardiology at [facility] Chet Nicole SOB (shortness of breath) (P rimary Dx); [facility] GIB (gastrointestinal bleeding); Drive [facility] MVP (mitral valve prolapse) [place] [address] CARDIOLOGY DEPT. [phone] [place], [place] [address] Social History Tobacco Use Types [...] Giordano MD - 06/28/2011 4:15 PM EDT [facility] Cholesterol and Triglycerides Tests: About These [...] 60 mg/dl is considered ideal. ?? Total kotkyjrhsxw-jo-BBW ratio: A ratio of 5:1 or lower is recommended. ?? LDL cholesterol: Between 100-129 mg/dL is recommended. Lower than 100 mg/dL is considered ideal. ?? VLDL cholesterol: 30 mg/dL or less is recommended. ?? Triglycerides: Lower than 150 mg/dL is recommended. Where can you learn more? Visit our health information library at [email or web address]. You can also view health information on [employer], your personal patient account. Log in or sign up today. Enter V788 in the search box to learn more about Cholesterol and Triglycerides Tests: About These Tests. ?? [id number] [employer]. Care instructions adapted under license by [facility]. This care instruction is for use with your licensed healthcare professional. If you have questionsabout a medical condition or this instruction, always ask your healthcare professional. [employer] disclaims any warranty or liability for your [...] prolapse) s/p repair Surgery done at [facility] in 2000 ??? Hypertriglyceridemia ??? Adhesive capsulitis of L shoulder ??? Alcohol use Medications: [place]-3 Fatty Acids-Vitamin E (FISH OIL) 1,000 mg [...] Negra Collins MD [facility] GASTROENTEROLOGY DEPT [place], [place] [address] (Wo rk) 09/05/2022 Appointment Cardiology Trinity Reid MD [facility] CARDIOLOGY [place], [place] [address] (Wo rk) 09/05/2022 Office Visit Cardiology Trinity Reid MD [facility] CARDIOLOGY [place], [place] [address] (Wo rk) documented as of this encounter Procedures Procedure Name Priority Date/Time Associated Diagnosis Comme nts EKG 12-LEAD Routine 06/28/2011 2:59 PM SOB (shortness of Resu lts for this EDT breath) procedure are i n the results section . documented in this encounter Results EKG 12 Lead (06/28/2011 2:59 PM EDT) [facility] gist Method Time Signature Ventricular rate 70 BPM MUSE SYSTEM Atrial Rate 70 BPM MUSE SYSTEM P-R Interval 182 ms MUSE SYSTEM QRS Duration 106 ms MUSE SYSTEM Q-T Interval 406 ms MUSE SYSTEM QTC Calculated 438 ms MUSE SYSTEM (Bezet) Calculated P [place] 60 degrees MUSE SYSTEM Calculated R [place] -51 degrees MUSE SYSTEM Calculated T [place] 32 degrees MUSE SYSTEM INTERPRETATION Normal sinus [...] disorders documented in this encounter Care Teams Podiatric Medicine Professor Relationship Specialty Start Date End Date Bobby Das MD PCP - General 10/02/[address] [place] [address] [place] [phone] documented as of this encounter
--- OUTSIDE RECORDS SUMMARY | 2022-07-12 09:46 | XMS_ITS | Encounter Summary ---
:1940 Author Organization [facility] Address [address] [place] [address] Care Team Providers Name Role Phone Bobby Das MD Primary Care Provider Reason for Visit Reason Comments Prostate Cancer Follow up Encounter Details Date Type Department Care Team Description 07/16/2019 Office Visit [facility] Aries Gutierrez neoplasm of Radiation Oncology - Felix EAST MD prostate ([facility]) Main [address] (Primary Dx) [address] [place] [address] [place] [address], [place] [phone] [facility] Level [address] [place] [address] (Wo rk) Social History Tobacco [...] DATE OF SERVICE: 07/16/2019 DIAGNOSIS AND STAGE: [id number], PSA 12.8 Winifred score 3+4 = 7 [...] He is being evaluated at [facility] next week for possible tuboplasty. With respect [...] prepared with voice recognition software. Please excuse acetone recovery worker errors. documented in this encounter Plan of [...] ORAL) added in this encounter Care Teams Roller Coaster Designer Relationship Specialty Start Date End Date Bobby Das MD PCP - General 07/06/[address] [place] [address],[address] [place] [address] documented as of this encounter
--- OUTSIDE RECORDS SUMMARY | 2022-07-12 09:46 | XMS_ITS | Encounter Summary ---
:1940 Author Organization [facility] Address [address] [place] [address] Care Team Providers Name Role Phone Bobby Das MD Primary Care Provider Reason for Visit Reason Comments Cancer Encounter Details Date Type Department Care Team Description 02/24/2018 Radiation Therapy [facility] Isela Law Ma lignant neoplasm of prostate (HCC-CMS) (Primary Dx); Visit Radiation Oncology - DION roldan deprivation therapy Main [place] [address] [place] [address] Social History Tobacco Use Types Packs/Day [...] Visit Diagnoses Diagnosis Malignant neoplasm of prostate ([facility]CC-[facility]) (HCC) - Primary Malignant neoplasm of prostate Androgen deprivation therapy Encounter for therapeutic drug monitorin g documented in this encounter Care Teams Bonus Clerk Relationship Specialty Start Date End Date Bobby Das MD PCP - General 07/06/[address] [place] [address] ,[address] [place] [phone] documented as of this encounter
--- OUTSIDE RECORDS SUMMARY | 2022-07-12 09:46 | XMS_ITS | Encounter Summary ---
:1940 Author Organization [facility] Address [address] [place] [address] Care Team Providers Name Role Phone Bobby Das MD Primary Care Provider Encounter Details Date Type Department Care Team Description 07/16/2019 Hospital Encounter [facility] - Dayne Gutierrez [facility] III, MD [id number] [place] [address] [facility] Level [address] [place] [address] (Wo rk) Social History Tobacco [...] filedocumented in this encounter Care Teams Manager Demand Relationship Specialty Start Date End Date Bobby Das MD PCP - General 07/06/[address] [place] [address] ,[address] [place] [phone] documented as of this encounter
--- OUTSIDE RECORDS SUMMARY | 2022-07-12 09:46 | XMS_ITS | Encounter Summary ---
:1940 Author Organization [facility] Address [address] [place] [address] Care Team Providers Name Role Phone Bobby Das MD Primary Care Provider Encounter Details Date Type Department Care Team Description 08/28/2020 Lab Requisition [facility] Outr Resulting Lab, Pathology & Laboratory Provider [facility] [address] [place], [place] [id number] Social History Tobacco Use Types Packs/Day Years [...] (08/28/2020 9:58 EDT) COVID-19 rt-PCR NEGATIVE Negative [facility] Result Comment: LABORATORY 2019-novel [...] Organization Address City/State/ZIP Code Phon e Number [facility] [place] [place] COVID-19 TESTING (08/28/2020 9:58 EDT) Pathologist [facility] COVID-19 rt-PCR NEGATIVE Negative [facility] Result Comment: LABORATORY 2019-novel Coronavirus (2019 [...] Use Authorization. Performing Lab [facility] LABORATORY SERVICES Specimen Swab Performing Organization Address City/State/ZIP Code Phon e Number [facility] [address] [place] [address] SERVICES [facility] [place] documented in this encounter Visit Diagnoses Not on filedocumented in this encounter Care Teams Power Generation Turbine Room Operator Relationship Specialty Start Date End Date Bobby Das MD PCP - General 07/06/[address] [place] [address] ,[address] [place] [address] documented as of this encounter
--- OUTSIDE RECORDS SUMMARY | 2022-07-12 09:46 | XMS_ITS | Encounter Summary ---
:1940 Author Organization [facility] Address [address] [place] [address] Care Team Providers Name Role Phone Bobby Das MD Primary Care Provider Reason for Visit Reason Onset Date Comments Cancer 02/16/2018 Encounter Details Date Type Department Care Team Description 02/16/2018 Orders Only [facility] Isela Law Maligna nt neoplasm of prostate (HCC-CMS) (Primary Dx); Radiation Oncology - RN Andvamshi n deprivation therapy [address] [address] Social History Tobacco Use Types Packs/Day Years [...] g documented in this encounter Care Teams Aerospace Medicine Physician Relationship Specialty Start Date End Date Bobby Das MD PCP - General 07/06/[address] [place] [address] ,[address] [place] [phone] documented as of this encounter
--- OUTSIDE RECORDS SUMMARY | 2022-07-12 09:46 | XMS_ITS | Encounter Summary ---
:1940 Author Organization [facility] Address [address] [place] [address] Care Team Providers Name Role Phone Abby Das MD Primary Care Provider Encounter Details Date Type Department Care Team Description 04/22/2018 Results Only [facility]- PRISM Abby Das MD [phone] [place] [address],[address] [place], [place] [phone] (Wo rk) Social History Tobacco Use Types Packs/Day Years Used Date Current Every Day Smoker Smokeless Tobacco: Never Used Sex Assigned at Date Recorded Not on file documented as of this encounter Plan of Treatment Not on filedocumented as of this encounter Procedures Procedure Name Priority Date/Time Associated Diagnosis Comme [facility] SURGICAL PATHOLOGY Routine 04/22/2018 8:40 EDT Re sults for this procedure are i n the results section. documented in this encounter Results SURGICAL PATHOLOGY (04/22/2018 8:40 EDT) Pathology Report: SURGICAL PATHOLOGY REPORT [facility] Reports generated via electronic interface contain abram ginal data; LABORATORY however they are lacking the format of the original re port. SERVICES Caution should be taken when reading/interpreting unfo rmatted reports. Name: ? ETTA BAH ? Accession #: ? [id number] ? : ? 1940 (Age: 77) ??M [...] City/State/ZIP Code Phon e Number [facility] LABORATORY [address] [place] [address] SERVICES documented in this encounter Visit Diagnoses Not on filedocumented in this encounter Care Teams Bottle Labeler Relationship Specialty Start Date End Date Abby Das MD PCP - General 07/06/[address] [place] [address] ,[address] [place] [phone] documented as of this encounter
--- OUTSIDE RECORDS SUMMARY | 2022-07-12 09:46 | XMS_ITS | Encounter Summary ---
:1940 Author Organization [facility] Address [address] [place] [address] Care Team Providers Name Role Phone Bobby Das MD Primary Care Provider Reason for Visit Reason Onset Date Comments Follow-up 03/06/2018 Encounter Details Date Type Department Care Team Description 03/06/2018 Telephone [facility] Theron Rojas RN Follow-up Radiation Oncology - Main [address] [place] [phone] [place] [address] Social History Tobacco Use Types Packs/Day Years [...] on filedocumented in this encounter Care Teams Caddy Packer Relationship Specialty Start Date End Date Bobby Das MD PCP - General 07/06/[address] [place] [address],[address] [place] [phone] documented as of this encounter
--- OUTSIDE RECORDS SUMMARY | 2022-07-12 09:46 | XMS_ITS | Encounter Summary ---
:1940 Author Organization [facility] Address [address] [place] [address] Care Team Providers Name Role Phone Bobby Das MD Primary Care Provider Encounter Details Date Type Department Care Team Description 10/03/2021 Lab Requisition [facility] Bobby Das Enc ounter for other Pathology & MD general examination Laboratory Medicine [address] [place] [address],[address] [facility] [address] [place], [place] [phone] [place] [phone] Social History Tobacco Use Types Packs/Day Years [...] 15:36 EST) Note to Patient The following [facility] pathology results have CENTER been [...] material is identified. Attestation By the signature [facility] Electronica lly below, the attending CENTER signed by Deejay, physician certifies LABORATORY Lis Platt MD on that they have 1) SERVICES 10/08/2021 at 1640 personally conducted a gross and/or microscopic examination of the described specimen(s), and/or personally interpreted the results of laboratory testing of the described specimen(s), and 2) personally rendered or confirmed the above diagnosis. Microscopic Sections consist of an [facility] Description excision of skin to [...] deeper sections. Clinical History Firm lesion not [facility] healing; foreign body CENTER granuloma LABORATORY SERVICES Gross Description A. [facility] Received in formalin christina d [...] SERVICES Toni Giordano 10/05/2021 8:15 Performing Lab [facility] HOSPITAL LAB [facility] LABORATORY SERVICES Scanned Images [facility] LABORATORY SERVICES Specimen Tissue - Skin (tissue) specimen (specime n) Performing Organization Address City/State/ZIP Code Phon e Number [facility] LABORATORY [address] [place] [address] SERVICES documented in this encounter Visit Diagnoses Diagnosis Encounter for other general examination documented in this encounter Care Teams Materials Intern Relationship Specialty Start Date End Date Bobby Das MD PCP - General 07/06/[address] [place] [address] ,[address] [place] [address] documented as of this encounter
--- OUTSIDE RECORDS SUMMARY | 2022-07-12 09:46 | XMS_ITS | Encounter Summary ---
:1940 Author Organization [facility] Address [address] [place] [address] Care Team Providers Name Role Phone Bobby Das MD Primary Care Provider Encounter Details Date Type Department Care Team Description 03/04/2018 Documentation Visit [facility] Aries Gutierrez Radiation Oncology - III, [address] [address] [address], [place] [phone] (Wo rk) Social History Tobacco Use Types Packs/Day Years Used Date Current Every Day Smoker Smokeless Tobacco: Never Used Sex Assigned at Date Recorded Not on file documented as of this encounter Miscellaneous Notes Treatment Summary - Delores Gutierrez III, MD - 03/04/2018 1339 EDT Images from the original note were not included. RADIATION ONCOLOGY TREATMENT SUMMARY SITE, HISTOPATHOLOGY AND STAGE: [id number], PSA 12.8 [place] score 3+4 = 7 adenocarcinoma prostate. He [...] Dr. José. Sj Gutierrez MD Radiation Oncology [phone] (office) [phone] (pager) This note has been prepared with voice recognition software. Please excuse dioramist errors. documented in this encounter Plan of Treatment Not on filedocumented as of this encounter Visit Diagnoses Not on filedocumented in this encounter Care Teams Inventory Specialist Relationship Specialty Start Date End Date Bobby Das MD PCP - General 07/06/[address] [place] [address],[address] [place] [address] documented as of this encounter
--- OUTSIDE RECORDS SUMMARY | 2022-07-12 09:46 | XMS_ITS | Encounter Summary ---
:[address] [facility] Address [address] [place] [address] Care Team Providers Name Role Phone Bobby Das MD Primary Care Provider Reason for Visit Reason Onset Date Comments Prostate Cancer 06/03/2018 Encounter Details Date Type Department Care Team Description 06/03/2018 Telephone [facility] Aries Gutierrez Cancer Radiation Oncology - III, [address] [address] [address], [place] [address] (Wo rk) Social History Tobacco Use Types Packs/Day Years Used Date Current Every Day Smoker Smokeless Tobacco: Never Used Sex Assigned at Date Recorded Not on file documented as of this encounter Miscellaneous Notes Telephone Encounter - Delores Gutierrez III, MD - 06/03/2018 6924 EDT RADIATION ONCOLOGY I spoke with Mr. Zamora by phone today. He tells me he is unable to make it to [place] for follow-up visits with me as he [...] office if he will be in the [place] area as I would be happyto move my schedule as needed to see him for follow-up. I did strongly encourage him to continue follow-up with Dr. José and asked him to call them to arrange an appointment. He canceled his next scheduled follow-up appointment with me. Sj Gutierrez MD Radiation Oncology [phone] (office) [phone] (pager) This note has been prepared with voice recognition software. Please excuse spinner hydraulic errors. documented in this encounter Plan of Treatment Not on filedocumented as of this encounter Visit Diagnoses Not on filedocumented in this encounter Care Teams Admission Nurse Coordinator Relationship Specialty Start Date End Date Bobby Das MD PCP - General 07/06/[address] [place] [address],[address] [place] [address] documented as of this encounter
--- OUTSIDE RECORDS SUMMARY | 2022-07-12 09:46 | XMS_ITS | Clinical Summary ---
:1940 Author Organization [facility] Address [address] [place] [address] Care Team Providers Name Role Phone Bobby [...] Problem Noted Date Malignant neoplasm of prostate ([facility]) 11/19/2017 Cancer Staging: Clinical stage from 11/19: Stage IIB (cT2a, cN0, cM0, PSA: 12.8, Grade Group: 2) - Signed by Delores Gutierrez III, MD on 11/19/2017 Medical History Medical History Date Comments Cancer ([facility]) (HCC) Hyperlipidemia Family History Medical History Relation [...] T ype Group Dates MEDICARE MEDICARE A/B [id number] 2007-Pre [address] edicare GL sent [id number] [place] [address] [facility] [id number] 2021-Pre [address] Commercial GL [facility] [employer] sent [place] [id number] COMPANY Koko Zamora Personal/Family Self 1940 [address] (Home) [place] [address] Koko Zamora Personal/Family Self 1940 [address] ([place] [address] Care Teams Job Order Clerk Relationship Specialty Start Date End Date Bobby Das MD PCP - General 07/06/[address] [place] [address],[address] [place] [phone]
--- OUTSIDE RECORDS SUMMARY | 2022-07-12 09:46 | XMS_ITS | Encounter Summary ---
:1940 Author Organization [facility] Address [address] [place] [address] Care Team Providers Name Role Phone Bobby Das MD Primary Care Provider Encounter Details Date Type Department Care Team Description 06/17/2019 Results Only Imaging [facility]- Unknown, PRISM ProviderMD [phone] Social History Tobacco Use Types Packs/Day Years [...] on filedocumented in this encounter Care Teams Licensed Psychologist Relationship Specialty Start Date End Date Bobby Das MD PCP - General 07/06/[address] [place] [address] ,[address] [place] [phone] documented as of this encounter
--- OUTSIDE RECORDS SUMMARY | 2022-07-12 09:46 | XMS_ITS | Encounter Summary ---
:1940 Author Organization [facility] Address [address] [place] [address] Care Team Providers Name Role Phone Bobby aDs MD Primary Care Provider Reason for Visit Reason Comments Prostate Cancer Encounter Details Date Type Department Care Team Description 02/17/2018 Radiation Therapy [facility] Aries Gutierrez alignant neoplasm Visit Radiation Oncology Felix EAST MD of [facility] - [address] ([facility]) (Primary [address] [facility] Dx) [facility], [address] [place] [address] [address] [place] [address] Social History Tobacco Use Types [...] encounter diagnosis was Malignant neoplasm of prostate ([facility]). Assessment: Assessment Completed By: Felix Gutierrez MD (02/17/18 0998) Radiation Therapy: Cumulative RT Dose 3600 cGy [...] Changes: None Sj Gutierrez MD Radiation Oncology [phone] (office) [phone] (pager) documented in this encounter Plan of Treatment Not on filedocumented as of this encounter Visit Diagnoses Diagnosis Malignant neoplasm of prostate (HCC-CMS) (HCC) - Primary Malignant neoplasm of prostate documented in this encounter Care Teams Environmental Health Aide Relationship Specialty Start Date End Date Bobby Das MD PCP - General 07/06/[address] [place] [address] ,[address] [place] [address] documented as of this encounter
--- OUTSIDE RECORDS SUMMARY | 2022-07-12 09:46 | XMS_ITS | Encounter Summary ---
:[address] [facility] Address [address] [place] [address] Care Team Providers Name Role Phone Bobby Das MD Primary Care Provider Reason for Visit Reason Comments Other Encounter Details Date Type Department Care Team Description 03/04/2019 Refill [facility] Radiation Adelfo Gutierrez ld Felix III, Other Oncology - Main [facility] [address] [place] [phone] [place] [address] [facility] 2 [place], [place] [address] (Wo rk) Social History [...] documented as of this encounter Care Teams Stick Puller Relationship Specialty Start Date End Date Bobby Das MD PCP - General 07/06/[address] [place] [address],[address] [place] [address] documented as of this encounter
--- OUTSIDE RECORDS SUMMARY | 2022-07-12 09:46 | XMS_ITS | Encounter Summary ---
:1940 Author Organization [facility] Address [address] [place] [address] Care Team Providers Name Role Phone Bobby Das MD Primary Care Provider Encounter Details Date Type Department Care Team Description 04/23/2018 Hospital Encounter [facility]- Devi Unknown, Provider, [facility] [address] [facility] [phone] [place] [address] (Work) [phone] Social History Tobacco Use Types Packs/Day Years [...] on filedocumented in this encounter Care Teams Census Taker Relationship Specialty Start Date End Date Bobby Das MD PCP - General 07/06/[address] [place] [address] ,[address] [place] [address] documented as of this encounter
--- OUTSIDE RECORDS SUMMARY | 2022-07-12 09:46 | XMS_ITS | Encounter Summary ---
:1940 Author Organization [facility] Address [address] [place] [address] Care Team Providers Name Role Phone Bobby Das MD Primary Care Provider Encounter Details Date Type Department Care Team Description 08/03/2020 Lab Requisition [facility] Outr Resulting Lab, Pathology & Laboratory Provider [facility] [address] [place], [place] [phone] Social History Tobacco Use Types Packs/Day Years [...] (08/03/2020 12:22 EDT) COVID-19 rt-PCR NEGATIVE Negative [facility] Result Comment: LABORATORY 2019-novel Coronavirus [...] Address City/State/ZIP Code Phon e Number [facility] [place] [place] COVID-19 TESTING (08/03/2020 12:22 EDT) Pathologist [facility] COVID-19 rt-PCR NEGATIVE Negative [facility] Result Comment: LABORATORY 2019-novel Coronavirus (2019 -nCoV) [...] Administration's Emergency Use Authorization. Performing Lab [facility] LABORATORY SERVICES Specimen Swab Performing Organization Address City/State/ZIP Code Phon e Number [facility] [address] [place] [address] SERVICES [facility] [place], [place] documented in this encounter Visit Diagnoses Not on filedocumented in this encounter Care Teams Civil Engineer'S Aide Relationship Specialty Start Date End Date Bobby Das MD PCP - General 07/06/[address] [place] [address] ,[address] [place] [address] documented as of this encounter
--- OUTSIDE RECORDS SUMMARY | 2022-07-12 09:46 | XMS_ITS | Encounter Summary ---
:1940 Author Organization [facility] Address [address] [place] [address] Care Team Providers Name Role Phone Bobby Das MD Primary Care Provider Encounter Details Date Type Department Care Team Description 02/25/[address] [facility] Adama Vargas RN Radiation Oncology - [address] [place] [address] [place] [address] Social History Tobacco Use Types Packs/Day Years Used Date Current Every Day Smoker Smokeless Tobacco: Never Used Sex Assigned at Date Recorded Not on file documented as of this encounter Progress Notes Lynn Vargas RN - 02/25/2018 0433 EDT Koko Zamora requested to be seen [...] on filedocumented in this encounter Care Teams Day Light Relief Operator Relationship Specialty Start Date End Date Bobby Das MD PCP - General 07/06/[address] [place] [address],[address] [place] [address] documented as of this encounter
--- OUTSIDE RECORDS SUMMARY | 2022-07-12 09:46 | XMS_ITS | Encounter Summary ---
:[address] [facility] Address [address] [place] [address] Care Team Providers Name Role Phone Bobby Das MD Primary Care Provider Encounter Details Date Type Department Care Team Description 07/16/2019 Phlebotomy Only [facility] Wood Pattern Maker, Eboni barbosa neoplasm - [facility] Outpatient of prostate [address] [facility] ([facility]) (Primary [place], [place] Dx) [address] Social History Tobacco Use [...] DIAGNOSTIC of prostate procedure are i n ([facility]) the results section. documented in this encounter Results PSA TOTAL, DIAGNOSTIC (07/16/2019 9:30 EDT) PSA 0.1 0 - 6.5 ng/ml [facility] Comment: LABORATORY SERVICES Serum PSA concentration should not be interpreted as absolute evidence for the presence or absence of malignant disease. Assayed utilizing Siemens ([facility]) chemiluminescent technology. ??Values obtained by using different assay methods cannot be used interchangeably. Specimen Blood specimen (specimen) - Blood Performing Organization Address City/State/ZIP Code Phon e Number [facility] LABORATORY [address] [place] [address] SERVICES documented in this encounter Visit Diagnoses Diagnosis Malignant neoplasm of prostate ([facility]) (HCC) - Primary Malignant neoplasm of prostate documented in this encounter Orders Lab Orders Without Results Count Last Ordered Date st Ordered Date PSA TOTAL, DIAGNOSTIC 1 07/16/2019 documented in this encounter Care Teams Clock Assembler Relationship Specialty Start Date End Date Bobby Das MD PCP - General 07/06/[address] [place] [address],[address] [place] [address] documented as of this encounter
--- OUTSIDE RECORDS SUMMARY | 2022-07-12 09:46 | XMS_ITS | Encounter Summary ---
:1940 Author Organization [facility] Address [address] [place] [address] Care Team Providers Name Role Phone Bobby Das MD Primary Care Provider Reason for Referral Laboratory Services (Routine) - Closed Specialty Diagnoses / Procedures Referred By Contact Refer red To Contact Diagnoses Malignant neoplasm of prostate ([facility]) ([facility]) Aries Gutierrez III, Procedures PSA TOTAL, DIAGNOSTIC MD [address] [place] [phone] Referral ID Status Reason Start Date Expiration Date Visits Requ ested Visits Authorized [id number] Closed 07/11/2019 1 1 Encounter Details Date Type Department Care Team Description 01/08/2019 Documentation Visit [facility] Center Aries Gutierrez Malignant neoplasm Radiation Oncology Felix EAST MD of prostate - [address] ([facility]) (Primary 111 [facility] Dx) [facility], [address] [place] [address] [address] Social History Tobacco Use Types [...] Visit Diagnoses Diagnosis Malignant neoplasm of prostate ([facility]) (HCC) - Primary Malignant neoplasm of prostate documented in this encounter Care Teams Cashier Supervisor Relationship Specialty Start Date End Date Bobby Das MD PCP - General 07/06/[address] [place] [address],[address] [place] [phone] documented as of this encounter
--- OUTSIDE RECORDS SUMMARY | 2022-07-12 09:47 | XMS_ITS | Encounter Summary ---
:1940 Author Organization [facility] Address [address] [place] [address] Care Team Providers Name Role Phone Bobby Das MD Primary Care Provider Reason for Visit Reason Onset Date Comments Medication Management 11/21/2017 Encounter Details Date Type Department Care Team Description 11/21/2017 Orders Only [facility] Radiation De Law RN Oncology - [address] [phone] Social History Tobacco Use Types Packs/Day Years [...] on filedocumented in this encounter Care Teams Truck Cleaner Relationship Specialty Start Date End Date Bobby Das MD PCP - General 07/06/[address] [place] [address] ,[address] [place] [phone] documented as of this encounter
--- OUTSIDE RECORDS SUMMARY | 2022-07-12 09:47 | XMS_ITS | Encounter Summary ---
:1940 Author Organization [facility] Address [address] [place] [address] Care Team Providers Name Role Phone Bobby Das MD Primary Care Provider Reason for Visit Reason Comments Follow-up Injection Encounter Details Date Type Department Care Team Description 01/05/2018 Office Visit [facility] Erlin José MD Malignant neoplasm of Urology - Main [address] [place] [address] ([facility]) (Primary 111 [facility] [place] [address] [address], [place] [address] (Wo rk) Social History [...] Progress Notes Chino José MD - 01/05/2018 9199 EST Chief Complaint: Chief Complaint Patient presents with ??? Follow-up Injection HPI: Koko is a 77 y.o. male with prostate cancer. Grant presented with an elevated PSA to 12.8 shaw palpable nodule and on biopsy had 2 out of 12 cores positive for Winifred 3+3 and Lily 3+4 prostate cancer. T2a. He previously had [...] Dr. Gutierrez this week See me at [facility] after radiation therapy is complete with a [...] mg documented in this encounter Care Teams Raw Stock Drier Tender Relationship Specialty Start Date End Date Bobby Das MD PCP - General 07/06/[address] [place] [address],[address] [place] [address] documented as of this encounter
--- OUTSIDE RECORDS SUMMARY | 2022-07-12 09:47 | XMS_ITS | Encounter Summary ---
:1940 Author Organization Health system Address [address] [place] [address] Care Team Providers Name Role Phone Bobby Das MD Primary Care Provider Encounter Details Date Type Department Care Team Description 01/16/2018 Results Only [facility] Center Aries Gutierrez Imaging Radiation Oncology - III, [facility] [address] [facility] [address] [place] [address] [address], [place] [address] (Wo rk) Social History Tobacco Use Types [...] on filedocumented in this encounter Care Teams Cpa Tax Relationship Specialty Start Date End Date Bobby Das MD PCP - General 07/06/[address] [place] [address] ,[address] [place] [address] documented as of this encounter
--- OUTSIDE RECORDS SUMMARY | 2022-07-12 09:47 | XMS_ITS | Encounter Summary ---
:1940 Author Organization [facility] Address [address] [place] [address] Care Team Providers Name Role Phone Bobby Das MD Primary Care Provider Reason for Visit Reason Onset Date Comments Prostate Cancer 11/20/2017 Encounter Details Date Type Department Care Team Description 11/20/2017 Telephone [facility] Aries Gutierrez Cancer Radiation Oncology - III, [address] [address] [address], [place] [address] (Wo rk) Social History Tobacco Use Types Packs/Day Years Used Date Current Every Day Smoker Smokeless Tobacco: Never Used Sex Assigned at Date Recorded Not on file documented as of this encounter Miscellaneous Notes Telephone Encounter - Delores Gutierrez III, MD - 11/20/2017 3020 EST RADIATION ONCOLOGY I spoke with Mr. Zamora by phone today. [facility] today[facility]als no evidence of metastatic disease. He is eager to start therapy. I discussed his care with Dr. José. We will coordinate initiation of androgen deprivation as soon as practical. He will return for fiducial marker placement in approximately 6 weeks, anticipate we will start his treatment approximately 2 months after his first injection. Sj Gutierrez MD Radiation Oncology [phone] (office) [phone] (pager) This note has been prepared with voice recognition software. Please excuse director rehabilitation program errors. documented in this encounter Plan of Treatment Not on filedocumented as of this encounter Visit Diagnoses Diagnosis Malignant neoplasm of prostate (HCC-CMS) (HCC) - Primary Malignant neoplasm of prostate documented in this encounter Care Teams Buyer Intern Relationship Specialty Start Date End Date Bobby Das MD PCP - General 07/06/[address] [place] [address],[address] [place] [address] documented as of this encounter
--- OUTSIDE RECORDS SUMMARY | 2022-07-12 09:47 | XMS_ITS | Encounter Summary ---
:[address] [facility] Address [address] [place] [address] Care Team Providers Name Role Phone Unknown, Provider Primary Care Provider Encounter Details Date Type Department Care Team Description 07/03/2015 Results Only [facility]- PRISM Abby Das MD [phone] [place] [address],[address] [place], [place] [phone] (Wo rk) Social History [...] 8:54 EDT) Pathology Report: SURGICAL PATHOLOGY REPORT [facility] Reports generated via electronic interface contain abram ginal data; LABORATORY however they are lacking the format of the original re port. SERVICES Caution should be taken when reading/interpreting unfo rmatted reports. Name: ? ETTA BAH ? Accession #: ? [id number] ? : ? 1940 (Age: 74) ??M ? Collect Date: ? 07/03/2015 ? Location: ? [facility] ? Receive Date: ? 07/04/20 15 ? Provider: ABBY DAS MD Copy to: ? Final Pathologic Diagnosis: SKIN OF RESTORATIONISM, RIGHT, EXCISION: - Basal cell carcinoma, infiltrative [...] the above diagnosi s. Specimen(s) Received: R cheondoism Clinical History: Basal cell carcinoma reexcision Gross [...] Address City/State/ZIP Code Phon e Number [facility] [address] [place] [address] SERVICES documented in this encounter Visit Diagnoses Not on filedocumented in this encounter Care Teams Asphalt Raker Relationship Specialty Start Date End Date Unknown, Provider, PCP - General 07/03/15 07/05/15 documented as of this encounter
--- OUTSIDE RECORDS SUMMARY | 2022-07-12 09:47 | XMS_ITS | Encounter Summary ---
:1940 Author Organization [facility] Address [address] [place] [address] Care Team Providers Name Role Phone Bobby Das MD Primary Care Provider Encounter Details Date Type Department Care Team Description 01/08/2018 Procedure visit [facility] Cancer Center Aries Gutierrez Radiation Oncology - IIIMD [address] [address] [address], [place] [phone] (Wo rk) Social History Tobacco Use Types [...] prostate gland. DATE OF SERVICE: 01/08/2018 INDICATIONS: [id number], PSA 12.8 Winifred score 3+4 = 7 [...] documented as of this encounter Care Teams Surveyor Chain Helper Relationship Specialty Start Date End Date Bobby Das MD PCP - General 07/06/[address] [place] [address] ,[address] [place] [address] documented as of this encounter
--- OUTSIDE RECORDS SUMMARY | 2022-07-12 09:47 | XMS_ITS | Encounter Summary ---
:1940 Author Organization [facility] Address [address] [place] [address] Care Team Providers Name Role Phone Bobby Das MD Primary Care Provider Encounter Details Date Type Department Care Team Description 01/16/2018 Documentation Visit [facility] Santhosh Cosby Radiation Oncology - Main [address] [phone] Social History Tobacco Use Types Packs/Day Years Used Date Current Every Day Smoker Smokeless Tobacco: Never Used Sex Assigned at Date Recorded Not on file documented as of this encounter Progress Notes Santhosh Cosby - 01/16/2018 9602 EST SOCIAL WORK ASSESSMENT: Amount of Distress: 0 Practical Problems: None Family Problems: None Emotional Problems: None Physical Problems: None Spiritual/Jew Concerns: No Other Problems: Social Work Assessment: [...] Prostate Cancer Living Arrangements: Pt lives in [place], [place] with his . They operate a [...] social work as needed. ASH Antonio phone [phone] pager [phone] documented in this encounter Plan of Treatment Not on filedocumented as of this encounter Visit Diagnoses Not on filedocumented in this encounter Care Teams Street Light Servicer Supervisor Relationship Specialty Start Date End Date Bobby Das MD PCP - General 07/06/[address] [place] [address],[address] [place] [phone] documented as of this encounter
--- OUTSIDE RECORDS SUMMARY | 2022-07-12 09:47 | XMS_ITS | Encounter Summary ---
:1940 Author Organization [facility] Address [address] [place] [address] Care Team Providers Name Role Phone Bobby Das MD Primary Care Provider Encounter Details Date Type Department Care Team Description 11/20/2017 Results Only Imaging [facility]- Unknown, PRISM ProviderMD [phone] Social History Tobacco Use Types Packs/Day Years [...] on filedocumented in this encounter Care Teams Roving Court Reporter Relationship Specialty Start Date End Date Bobby Das MD PCP - General 07/06/[address] [place] [address],[address] [place] [address] documented as of this encounter
--- OUTSIDE RECORDS SUMMARY | 2022-07-12 09:47 | XMS_ITS | Encounter Summary ---
:1940 Author Organization [facility] Address [address] [place] [address] Care Team Providers Name Role Phone Bobby Das MD Primary Care Provider Reason for Visit Reason Comments Cancer Encounter Details Date Type Department Care Team Description 02/06/2018 Radiation Therapy [facility] Lynn Vargas RN Malignant neoplasm Visit Radiation Oncology [address] [facility] ([facility]) ([facility]) [address] [place] [address] (Primary Dx) [place] [id number] Social History Tobacco Use Types Packs/Day Years [...] encounter diagnosis was Malignant neoplasm of prostate ([facility]). Assessment: Assessment Completed By: Lynn Vargas RN [...] Visit Diagnoses Diagnosis Malignant neoplasm of prostate (HCC-[facility]) (HCC) - Primary Malignant neoplasm of prostate documented in this encounter Care Teams Manager Play Relationship Specialty Start Date End Date Bobby Das MD PCP - General 07/06/[address] [place] [address],[address] [place] [address] documented as of this encounter
--- OUTSIDE RECORDS SUMMARY | 2022-07-12 09:47 | XMS_ITS | Encounter Summary ---
:[address] [facility] Address [address] [place] [address] Care Team Providers Name Role Phone Bobby Das MD Primary Care Provider Reason for Visit Reason Comments Prostate Cancer Encounter Details Date Type Department Care Team Description 02/10/2018 Radiation Therapy [facility] Aries Gutierrez alignant neoplasm Visit Radiation Oncology [facility] - [address] ([facility]) (Primary [address] [facility] Dx) [facility], [address] [place] [address] [address] [place] [address] Social History Tobacco Use Types [...] encounter diagnosis was Malignant neoplasm of prostate ([facility]). Assessment: Assessment Completed By: Felix Gutierrez MD (02/10/18 7116) Radiation Therapy: Cumulative RT Dose 2400 cGy [...] Changes: None Sj Gutierrez MD Radiation Oncology [phone] (office) [phone] (pager) documented in this encounter Plan of Treatment Not on filedocumented as of this encounter Visit Diagnoses Diagnosis Malignant neoplasm of prostate (HCC-CMS) (HCC) - Primary Malignant neoplasm of prostate documented in this encounter Care Teams Licensed Real Estate Broker Relationship Specialty Start Date End Date Bobby Das MD PCP - General 07/06/[address] [place] [address] ,[address] [place] [address] documented as of this encounter
--- OUTSIDE RECORDS SUMMARY | 2022-07-12 09:47 | XMS_ITS | Encounter Summary ---
:1940 Author Organization [facility] Address [address] [place] [address] Care Team Providers Name Role Phone Bobby Das MD Primary Care Provider Encounter Details Date Type Department Care Team Description 10/29/2017 Results Only [facility] Erlin José MD Urology - [address] [address] [address], [place] [phone] (Wo rk) Social History Tobacco Use Types Packs/Day Years Used Date Never Assessed Sex Assigned at Date Recorded Not on file documented as of this encounter Plan of Treatment Not on filedocumented as of this encounter Procedures Procedure Name Priority Date/Time Associated Diagnosis Comme [facility] SURGICAL PATHOLOGY Routine 10/29/2017 8:21 EST Re sults for this procedure are i n the results section. documented in this encounter Results SURGICAL PATHOLOGY (10/29/2017 8:21 EST) Pathology SURGICAL PATHOLOGY REPORT [facility] MEDICAL Report: Reports generated via electronic interface conta in original data; CENTER LABORATORY however they are lacking the format of the original re port. SERVICES Caution should be taken when reading/interpreting unfo rmatted reports. Name: ? ETTA BAH ? Accession #: ? [id number] ? : ? 1940 (Age: 77) ??M [...] to 6: Prognostic Grad e Group I The Rock score 3+4=7: Prognostic Grade Group II The Rock score 4+3=7: Prognostic Grade Group III Winifred score 8: Prognostic Grade Group IV Winifred score 9-10: Prognostic Grade Group V References for Prognostic Grade Groups: J Clin Hercules 2012;30:2198-6113 Joey CASTAÑEDA. The Winifred Grading System (A Comple te Guide for Pathologists and Clinicians), LWW, 2013 Serg PM, Shell PW, Edward AW, Joey JI. Progno stic Winifred Grade Grouping: Data based on the modified The Rock scoring s yste. BJU Int 2013;111:753-760 A. [...] leason pattern: ? Grade 3 ?- ??Secondary The Rock pattern: ? Grade 3 ?- ??Total Gle [...] of 2 cores. ? - Global tumor The Rock score: ?3 + 4 = 7 (30% [...] Number [facility] [address] [place] [address] SERVICES documented in this encounter Visit Diagnoses Not on filedocumented in this encounter Care Teams Systems Analyst Relationship Specialty Start Date End Date Bobby Das MD PCP - General 07/06/[address] [place] [address] ,[address] [place] [address] documented as of this encounter
--- OUTSIDE RECORDS SUMMARY | 2022-07-12 09:47 | XMS_ITS | Encounter Summary ---
:1940 Author Organization [facility] Address [address] [place] [address] Care Team Providers Name Role Phone Bobby Das MD Primary Care Provider Reason for Visit Reason Comments Cancer Encounter Details Date Type Department Care Team Description 01/08/2018 Radiation Therapy [facility] Isela Law Ma lignant neoplasm of Visit Radiation Oncology - RN prostat e ([facility]) Main [place] ([facility]) (Primary [address] [facility] Dx) [place] [address] Social History Tobacco Use Types [...] prostate documented in this encounter Care Teams Playground Monitor Relationship Specialty Start Date End Date Bobby Das MD PCP - General 07/06/[address] [place] [address],[address] [place] [address] documented as of this encounter
--- OUTSIDE RECORDS SUMMARY | 2022-07-12 09:47 | XMS_ITS | Encounter Summary ---
:1940 Author Organization [facility] Address [address] [place] [address] Care Team Providers Name Role Phone Bobby Das MD Primary Care Provider Encounter Details Date Type Department Care Team Description 01/08/2018 Hospital Encounter [facility] Aries Gutierrez Radiation Oncology - III, [facility] [address] [address] [address], [place] [phone] (Wo rk) Social History Tobacco Use Types [...] on filedocumented in this encounter Care Teams Forest Fire Fighter Relationship Specialty Start Date End Date Bobby Das MD PCP - General 07/06/[address] [place] [address],[address] [place] [address] documented as of this encounter
--- OUTSIDE RECORDS SUMMARY | 2022-07-12 09:47 | XMS_ITS | Encounter Summary ---
:1940 Author Organization [facility] Address [address] [place] [address] Care Team Providers Name Role Phone Unknown, Provider Primary Care Provider Encounter Details Date Type Department Care Team Description 07/03/2015 Hospital Encounter [facility]- Devi Unknown, Provider, [facility] [phone] [place] [address] (Work) [phone] Social History Tobacco Use Types Packs/Day Years Used Date Never Assessed Sex Assigned at Date Recorded Not on file documented as of this encounter Discharge Disposition Disposition Code Departure Means Destination Home or Self Longterm documented in this encounter Plan of Treatment Not on filedocumented as of this encounter Visit Diagnoses Not on filedocumented in this encounter Care Teams Accounts Officer Relationship Specialty Start Date End Date Unknown, Provider, PCP - General 07/03/15 07/05/15 documented as of this encounter
--- OUTSIDE RECORDS SUMMARY | 2022-07-12 09:47 | XMS_ITS | Encounter Summary ---
:1940 Author Organization [facility] Address [address] [place] [address] Care Team Providers Name Role Phone Bobby Das MD Primary Care Provider Encounter Details Date Type Department Care Team Description 02/08/2018 Hospital Encounter [facility] Aries Gutierrez Radiation Oncology - III, [facility] 111 [facility] [address] [place] [address] [address], [place] [address] (Wo rk) Social History Tobacco Use Types [...] Code Departure Means Destination Home or Self [facility] documented in this encounter Plan of Treatment Not on filedocumented as of this encounter Visit Diagnoses Not on filedocumented in this encounter Care Teams Fiber Optic Assembly Worker Relationship Specialty Start Date End Date Bobby Das MD PCP - General 07/06/[address] [place] [address],[address] [place] [phone] documented as of this encounter
--- OUTSIDE RECORDS SUMMARY | 2022-07-12 09:47 | XMS_ITS | Encounter Summary ---
:1940 Author Organization [facility] Address [address] [place] [address] Care Team Providers Name Role Phone Bobby Das MD Primary Care Provider Reason for Visit Reason Comments Cancer Encounter Details Date Type Department Care Team Description 01/08/2018 Radiation Therapy [facility] Isela Law Ma lignant neoplasm of Visit Radiation Oncology - RN prostat e ([facility]) Main [place] ([facility]) (Primary [address] Dx) [place] [address] Social History Tobacco Use Types [...] and get free services/meds from afar. Referrals inventory worker: Yes (Shadi will meet with Santhosh Cosby MSW next week to review the DT and supportive services. ) Services: Kylee Lowell: No Other: Subjective Note: General: Koko and his Ursula are here for the treatment teaching session post Fiducials being placed. 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 They are concerned that he might be [...] prostate documented in this encounter Care Teams Risk Compliance Manager Relationship Specialty Start Date End Date Bobby Das MD PCP - General 07/06/[address] [place] [address] ,[address] [place] [phone] documented as of this encounter
--- OUTSIDE RECORDS SUMMARY | 2022-07-12 09:47 | XMS_ITS | Encounter Summary ---
:1940 Author Organization [facility] Address [address] [place] [address] Care Team Providers Name Role Phone Bobby Das MD Primary Care Provider Encounter Details Date Type Department Care Team Description 10/29/2017 Hospital Encounter [facility]- Devi Unknown, Provider, [facility] [address] [facility] [phone] [place] [address] (Work) [phone] Social History Tobacco Use Types Packs/Day Years Used Date Never Assessed Sex Assigned at Date Recorded Not on file documented as of this encounter Discharge Disposition Disposition Code Departure Means Destination Home or Self Nursing Home documented in this encounter Plan of Treatment Not on filedocumented as of this encounter Visit Diagnoses Not on filedocumented in this encounter Care Teams Boil Off Machine Operator Cloth Relationship Specialty Start Date End Date Bobby Das MD PCP - General 07/06/[address] [place] [address],[address] [place] [address] documented as of this encounter
--- OUTSIDE RECORDS SUMMARY | 2022-07-12 09:47 | XMS_ITS | Encounter Summary ---
:1940 Author Organization [facility] Address [address] [place] [address] Care Team Providers Name Role Phone Bobby Das MD Primary Care Provider Reason for Visit Reason Comments Cancer Encounter Details Date Type Department Care Team Description 02/16/2018 Radiation Therapy [facility] Isela Law Ma lignant neoplasm of Visit Radiation Oncology - RN prostleonid e ([facility]) Main [place] (Primary Dx) [address] [place] [address] Social History Tobacco Use Types Packs/Day [...] encounter diagnosis was Malignant neoplasm of prostate ([facility]). Assessment: Assessment Completed By: Isela [...] documented in this encounter Care Teams Manager Collection Relationship Specialty Start Date End Date Bobby Das MD PCP - General 07/06/[address] [place] [address],[address] [place] [address] documented as of this encounter
--- OUTSIDE RECORDS SUMMARY | 2022-07-17 10:36 | XMS_ITS | Encounter Summary ---
:1940 Author Organization [facility] [place] [address] Care Team Providers Name Role Phone Bobby Das MD Primary Care Provider Encounter Details Date Type Department Care Team Description 06/19/2022 Telephone [facility]iology [facility] Kourtney Jimenez, [facility] [place] [address] Social History Tobacco Use Types Packs/Day [...] Zamora: Requesting a referral to Cardiac Rehab [facility] Forward to Dr Reid documented in this encounter Plan of Treatment Upcoming Encounters Date Type Specialty Care Team Description 08/08/2022 Office Visit Gastroenterology Negra Collins MD [facility] GASTROENTEROLOGY DEPT [place], [place] [address] (Wo rk) 09/05/2022 Appointment Cardiology Trinity Reid MD [facility] CARDIOLOGY [place], [place] [address] (Wo rk) 09/05/2022 Office Visit Cardiology Trinity Reid MD [facility] ER CARDIOLOGY [place], [place] [address] (Wo rk) documented as of this encounter Visit Diagnoses Not on filedocumented in this encounter Care Teams Practical Nursing Instructor Relationship Specialty Start Date End Date Bobby Das MD PCP - General 10/02/[address] [place] [address] [place] [address] documented as of this encounter
--- OUTSIDE RECORDS SUMMARY | 2022-07-17 10:36 | XMS_ITS | Encounter Summary ---
:1940 Author Organization [facility] [place] [address] Care Team Providers Name Role Phone Bobby Das MD Primary Care Provider Reason for Visit Reason Comments Skin Lesion Consultation (Routine) - Closed Specialty Diagnoses / Procedures Referred By Contact Refer red To Contact Dermatology Diagnoses Lesion on right eye = hx of skin cancer Bobby Das MD [facility] Dermatology Procedures Lesion on right eye = hx of skin cancer [address] [facility] [address] [place] [address] [place] [address] Fax: Referral ID Status Reason Start Date Expiration Date Visits Requ ested Visits Authorized [id number] Closed 04/22/2022 04/22/2023 1 1 Encounter Details Date Type Department Care Team Description 06/10/2022 Office Visit Dermatology at [facility], Neoplasm of Road unspecified behavior [address] [facility] [place] [address] [address] and skin [phone] DERMATOLOGY [place] [address] Social History Tobacco Use Types Packs/Day Years [...] nevi N SCC N BCC 2015: right shinto, BCC s/p mohs 09/2018: right eyebrow, BCC [...] N/A RTC: Pending pathology []Note routed to [employer] []Recall placed in scheduling system []Appointment scheduled at checkout Scribe attestation: Sidney Higgins and Loretta Gomez CMA performed the documentation for this encounter in the presence of and acting as a scribe for Noel Burgos MD. I performed the above scribed service and agree with the accuracy of the documentation in this encounter. Reviewed and signed by: Noel Burgos MD Dermatology [facility] Loretta Cohen MD - 06/10/2022 11:00 AM EDT DERMATOLOGY TELEPHONE NOTE Koko Zamora 06/17/2022 [id number] Reason for call: Discuss biopsy results I [...] Collins MD [facility] GASTROENTEROLOGY DEPT [place], [place] [address] (Wo bob) 09/05/2022 Appointment Cardiology Trinity Reid MD [facility] CARDIOLOGY [place], [place] [address] (Rebekah rojas) 09/05/2022 Office Visit Cardiology Trinity eRid MD [facility] ER DR CARDIOLOGY [place] [phone] (Wo rk) documented as of this encounter [...] PM 2 1:20 EDT PM EDT Narrative [facility] - 06/10/2022 1:20 PM EDT Specimen requisition ordered. ??Separate Pathology report to follow Loretta Cohen MD PATHOLOGY/CYTOLOGY ORDERABLE S Performing Organization Address City/State/[place] [address] Surgical Pathology Report (06/10/2022 11:43 AM EDT) Component Value Ref Test Analysis [facility] Range Method Time Signature Surgical [id number] ? Location: [facility] Report The signing pathologist has (i) examined the relevant preparation(s) for the [facility] specimen(s) and (ii) rendered or confirmed the diagnosis(es) . HOSPITAL LABORATORY . ?Surgic al Pathology DIAGNOSIS Right lateral eyebrow, skin shave biopsy: - ??Basal cell carcinoma, no dular pattern, transected at the peripheral and deep specimen edges Electronically signed by: ?Delroy CARCAMO, PhD, Ian Verified: ??06/12/2022 14:33 ??Dermatopathologist Performed at: ??-[facility] Dept. of Pathology, [place], [place] SPECIMEN(S) SUBMITTED A - right lateral [...] Organization Address City/State/[place] [address] [facility] [address] documented in this encounter Visit Diagnoses Diagnosis Neoplasm of unspecified behavior of bone , soft tissue, and skin documented in this encounter Care Teams Razor Sharpener Relationship Specialty Start Date End Date Bobby Das MD PCP - General 10/02/[address] [place] [address] [place] [address] documented as of this encounter
--- OUTSIDE RECORDS SUMMARY | 2022-07-17 10:36 | XMS_ITS | Encounter Summary ---
:1940 [place] [address] Care Team Providers Name Role Phone Bobby Das MD Primary Care Provider Encounter Details Date Type Department Care Team Description 06/13/2022 Tech Visit Vascular Lab at [facility], Doming[place] [address] Social History Tobacco Use Types Packs/Day [...] Negra Collins MD [facility] DR GASTROENTEROLOGY DEPT [place], [place] [address] (Wo rk) 09/05/2022 Appointment Cardiology Trinity Reid MD [facility] CARDIOLOGY [place], [place] [address] (Wo rk) 09/05/2022 Office Visit Cardiology Trinity Reid MD [facility] CARDIOLOGY [place], [place] [address] (Wo rk) documented as of this encounter Procedures Procedure Name Priority Date/Time Associated Diagnosis Comme nts JOSSELYN, LEGS, MULTIPLE Routine 06/13/2022 7:13 AM Limb ischemia R esults for this LEVELS EDT procedure are i n the results section. documented in this encounter Results JOSSELYN, legs, multiple levels (06/13/2022 7:13 AM EDT) Component Value Ref Test Analysis Performed At [facility] Range Method Time Signature VB Text Department: Vascular Surgery Lab [facility] Report Patient: [id number] (ETTA BAH) CPT: 56766 Referring Physician: FITO SUMMERS ?? Phone: Indications: s/p L PRINTMAKER endart. Diabetes mellitus: no Findings: Right ?Pressure [...] / Volume Laterality 06/13/2022 7:13 AM EDT Ftio Summers MD VASCULAR ORDERABLES Performing Organization Address City/State/ZIP Code Phon e Number [facility] documented in this encounter Visit Diagnoses Diagnosis Limb ischemia Unspecified circulatory system disorder documented in this encounter Care Teams Clinical Courier Relationship Specialty Start Date End Date Bobby Das MD PCP - General 10/02/[address] [place] [address] [place] [phone] documented as of this encounter
--- OUTSIDE RECORDS SUMMARY | 2022-07-17 10:36 | XMS_ITS | Encounter Summary ---
:1940 Author Organization 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 MD Kurt Coronary artery disease involving solomon coronary artery of solomon heart [place] [address] CARDIOLOGY [phone] [place], [place] [address] (Wo rk) Social History Tobacco [...] Collins MD [facility] GASTROENTEROLOGY DEPT [place], [place] [address] (Wo rk) 09/05/2022 Appointment Cardiology Trinity Reid MD [facility] CARDIOLOGY [place], [place] [address] (Wo rk) 09/05/2022 Office Visit Cardiology Trinity Reid MD [facility] CARDIOLOGY [place], [place] [address] (Wo rk) Scheduled Referrals Name Type Priority Associated Diagnoses [facility] Referral Routine HFrEF (heart failure Ordered: Cardiac Rehab with reduced 06/20/2022 ejection fractio n) 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
--- OUTSIDE RECORDS SUMMARY | 2022-07-17 10:36 | XMS_ITS | Encounter Summary ---
:1940 [place] [address] Care Team Providers Name Role Phone Bobby Das MD Primary Care Provider Reason for Visit Reason Comments Dizziness Auth/Cert Specialty Diagnoses / Procedures Referred By Contact Refer red To Contact Diagnoses GIB (gastrointestinal bleeding) Abe [facility] [place] [address] Referral ID Status Reason Start Date Expiration Date Visits Requ ested Visits Authorized [id number] 1 1 Encounter Details Date Type Department Care Team Description 05/31/2022 - Hospital Encounter Intermediate Special Dixon Hinds MD [facility] [place] [address] GIB 06/02/2022 Care [place] [address] (gastrointestinal [facility] [place] [address] bleeding) ([facility] [place] [address] Dx) [place] [address] Social History Tobacco Use Types Packs/Day Years [...] Valle MD - 06/02/2022 12:48 PM EDT [facility] Medicine - Discharge Summary Patient Name: [...] switching to a different bloodthinner with the inbound telemarketer outpatient. Call your doctor or seek medical [...] switchingto a different blood thinner with your inbound telemarketer as an outpatient Stopped Medications - Aspirin - Valsartan - Speak with your inbound telemarketer about the timing of restarting this Follow-up Appointments Future Appointments Date Time Provider Department Center 06/10/2022 11:00 AM Loretta Cohen MD [facility] 06/13/2022 7:30 AM E[address] [place] [facility] VAS LAB [facility] 06/13/2022 8:00 AM Fito Summers MD [facility] V SURG [facility] 06/13/2022 10:00 AM Alan Reid MD [address] Your Inpatient Medical Team at [facility] Name(s) of your inpatient provider(s): Dr. John Ames For questions regarding issues relating to your hospitalization on the Hospital Medicine Service, please contact your inpatient physician through the [facility] Recreation Instructor [phone]. Issues after hours and on weekends will be handled by the Hospitalist staff on-call. Your Primary Care Provider Bobby Das MD [phone] Future Appointments and Orders Future Appointments and Orders Future Appointments Provider Department Dept Phone 06/10/2022 11:00 AM Loretta Cohen MD Dermatology [facility] Arrive at: Marine Equipment Preservation Inspector [address] [place] [phone] 06/13/2022 7:30 AM Edson [place]os [place] Vascular Lab at [facility] Arrive at: Marine Equipment Preservation Inspector Area [phone] 06/13/2022 8:00 AM Fito Summers MD Vascular Surgery at [facility] Arrive at: Marine Equipment Preservation Inspector Area 06/13/2022 10:00 AM Alan Reid MD Cardiology at [facility] Arrive at: Marine Equipment Preservation Inspector Area [phone] For questions regarding this document or issues relating to this hospitalization on the Medical Service, please contact your inpatient physician through the [facility] Recreation Instructor . Issues after hours and on weekends [...] switching to a different bloodthinner with the inbound telemarketer outpatient. Call your doctor or seek medical [...] switchingto a different blood thinner with your inbound telemarketer as an outpatient Stopped Medications - Aspirin - Valsartan - Speak with your inbound telemarketer about the timing of restarting this Follow-up Appointments Future Appointments Date Time Provider Department Center 06/10/2022 11:00 AM Loretta Cohen MD [facility] 06/13/2022 7:30 AM E[address] [place] [facility] VAS LAB ILDA POWELL 06/13/2022 8:00 AM Fito Summers MD [facility] V SURG [facility] 06/13/2022 10:00 AM Alan Reid MD [facility] CARD 4A [facility] Your Inpatient Medical Team at [facility] Name(s) of your inpatient provider(s): Dr. John Ames For questions regarding issues relating to your hospitalization on the Hospital Medicine Service, please contact your inpatient physician through the [facility] Recreation Instructor [phone]. Issues after hours and on weekends will be handled by the Hospitalist staff on-call. Your Primary Care Provider Bobby Das MD [phone] documented in this encounter Medications at Time [...] 04/12/20 21 (FLONASE) 50 mcg/actuation Nare route [place], Suspension daily as needed. fluorouraciL (EFUDEX) 5 [...] spent >30 minutes (Day of Discharge Code 14766) involved in the final examination of the [...] were not included. Hospital Medicine Progress Note [place] Team - Pager #[phone] Admit Date: 05/31/2022 Name: Koko Zamora : [...] Kurt Ames MD Internal Medicine, PGY-1 Medicine [place] Team #[id number] Associated attestation - John Jolley MD - 06/01/2022 5:02 PM EDT [facility] Medicine -- Attending Progress Note Please see [...] of two midnights or is on the [facility] inpatient only procedure list (status C) due to: GI Bleeding documented in this encounter H&P Notes Mahendra Victor MD - 05/31/2022 4:33 PM EDT Images from the original note were not included. [facility] Medicine (#[id number]) History and Physical Patient info: Name: Koko Zamora : 1940 PCP: Bobby Das MD PCP phone number: [phone] Date of Admission: 05/31/2022 ( Hospital Day [...] [facility] No family history [...] 11 ??? fluticasone propionate (FLONASE) 50 mcg/actuation [place], Suspension as needed. ??? fluorouraciL (EFUDEX) 5 [...] Gas) No results found for: PHART, PO2ART, ZQE5TRF, FUK3BQF Microbiology: N/A Pertinent radiology/diagnostic studies: Recent prior [...] Status: Full Arpita Valle MD, PGY-3 05/31/2022 [facility] Medicine # [id number] Attending Staff Admission [...] 05/31/2022 3:58 PM EDT Norepinephrine pulled from [facility] for soft BPs. Upon arrival to [...] AM EDT Pt brought to XR by gradall operator Brittany Ramirez MD - 05/31/2022 10:40 AM [...] who have questions please contact the health respiratory care practitioner that requested your imaging first. Chest PA [...] who have questions please contact the health respiratory care practitioner that requested your imaging first. Course as [...] recommendations from Brittany Tavares MD Resident 05/31/22 [id number] Associated attestation - Regina Hinds MD - [...] soft blood pressures, MD made aware. 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 Patient reported blurry/hazy [...] Heparin gtt - plan to bridge to [facility] Discharge planning Increase strength & [...] from the original note were not included. [facility] [place] [phone] INPATIENT CARDIOLOGY CONSULT NOTE Date of Consultation: 06/01/2022 Admit Date: 05/31/2022 Place of Service: IS86/IS86-A Referring Attending: REGINA HINDS COLEMAN W FRIEDMAN, HARLEY P Responsible Link Trainer Teacher: Dr. Rizo Hospital Day 1 day Reason [...] and LCx stent) who presented to [facility] on 05/31/2022 [...] [facility] MAIN OR ALLERGIES: Allergies Allergen [...] time ??? fluticasone propionate (FLONASE) 50 mcg/actuation [place], Suspension 1 spray by Each Nare route [...] Neurology: Without focal deficit ECG: Echocardiogram: 05/16/2022 [facility] 05/20/2022 Coronary Angiography: Dominance: Right Left [...] 3.5 guiding catheter and a 3.5 Fr [place] [facility] [place] [address] 20 Mhz. Imaging was successful. Image [...] A premounted 2.75 x 30 mm Rudy Blair (AMPARO) was deployed with a maximum inflation [...] require modification of this regimen. Consult [facility] Interventional Cardiology [...] Hb drop. Unknown source. has had a [facility] with stent placed and revascularization of [...] who have questions please contact the health respiratory care practitioner that requested your imaging first. [employer] 48 [...] who have questions please contact the health respiratory care practitioner that requested your imaging first. Recent Labs [...] on xarelto, ischemic systolic heart failure (recent [facility] 05/20/2022 with 2V disease OM1 and distal RCA, had ostial LCX and LCx stent), recent admission for acutelimb ischemia LLE, where he had left common femoral transverse arteriotomy and primary repair, thromboembolectomy of the SFA, profunda and common femoral artery with 4 compartment fasciotomies, who presented to [facility] on 05/31/2022 [...] for additional insight. Rossy Anaya MD [facility] Bioinformatics Assistant, PGY-5 Inpatient Cardiology Consults Pager #[phone] Please check Qgenda for on-call cardiology consults [...] A&Ox 4. On room air. VSS. 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 Adequate urine output, urinal at bedside, flomax [...] surrogate would be surrogate decision maker per [place] surrogate decision making law. (Only good for 180 days) Any patient receiving care in [place] must abide by [place] law. The hierarchy for surrogate decision making [...] (i) The agent with financial power of cafe associate or a conservator appointed in accordance with [...] walker - rolling Home Address confirmed as: [address] [place] [phone] Social & Family Supports: All names listed below confirmed with patient as current and correct Extended Emergency Contact Information Primary Emergency Contact: Ursula Zamora Address: [address] [place] [id number] [facility] Relation: Spouse Current Care [...] *No Product type* / Secondary Insurance: [facility] Secondary Insurance? (Only Medicare A&B): Yes ; Prescription Coverage: Yes Preferred Pharmacy: [id number] - [facility], [place] - [address] [facility] [address] [facility] [address] Status: Patient is a : No Primary Care Provider: oBbby Das MD [phone] Patient/Caregiver Goals of Treatment: Patient plans to [...] with transition of care planning. ASH Garcia Special Education Resource Teacher [facility] Medicine/ Medical Specialties Pager- [phone] Plan [...] Operative Note Patient Name: Koko Rioson : [id number] MR#: [id number] Case Date: 05/31/2022 Surgeon: Surgeon(s) and Role: [...] He has had colonoscopies before in [place] - notes first ever he had 6 polyps removed but last colo 5 yrs ago was normal. He lives in [facility]. Currently light-headedness is improved. No fevers, [...] [facility] MAIN OR SOCIAL HX: Social [...] sounds, tympanic to percussion RECTAL: performed with insurance claims examiner present, no overt masses, fissures, external hemorrhoids, [...] who have questions please contact the health respiratory care practitioner that requested your imaging first. Abdomen & [...] Collins MD [facility] GASTROENTEROLOGY DEPT [place], [place] [address] (Wo bob) 09/05/2022 Appointment Cardiology Trinity Reid MD [facility] CARDIOLOGY [place], [place] [address] (Wo bob) 09/05/2022 Office Visit Cardiology Trinity Reid MD [facility] ER DR CARDIOLOGY [place], [place] [address] (Wo rk) documented as of [...] EDT) athologist Signature Neutrophils % 61.3 % [facility] LABORATORY Neutr Abs (ANC) 4.44 1.70 - [facility] 6.10 [facility] x10(3)/[facility] LABORATORY Lymphocytes % 25.2 % [facility] LABORATORY Lymphocytes Abs 1.8 0.9 - 3.2 [facility] x10(3)/[facility] LABORATORY Monocytes % 10.0 % [facility] LABORATORY Monocyte Abs 0.7 0.3 - 0.9 [facility] x10(3)/[facility] LABORATORY Eosinophils % 2.1 % [facility] LABORATORY Eosinophils Abs 0.2 0.0 - 0.4 [facility] x10(3)/[facility] LABORATORY Basophils % 0.7 % [facility] LABORATORY Basophils Abs 0.0 0.0 - 0.1 [facility] x10(3)/[facility] LABORATORY Immature Gran % 0.70 % [...] Organization Address City/State/ZIP Code Phon e Number [place] [id number] [facility] [address] (ABNORMAL) Hemogram (06/02/2022 8:20 AM EDT) Analysis Performed At Patho logist Time Signature WBC 7.2 4.0 - 9.5 [place] x10(3)/[facility] LABORATORY RBC 2.74 (L) 4.58 - [email or web address] 5.54 [facility] x10(6)/[facility] LABORATORY Hemoglobin 8.7 (L) 13.7 - [facility] 16.5 g/dL [facility] LABORATORY Hematocrit 25.7 (L) 40.5 - [facility] 48.5 % [facility] LABORATORY MCV 93.8 (H) 82.9 - [facility] 93.1 [facility] LABORATORY MCH 31.8 27.5 - [place] 32.1 pg [facility] LABORATORY MCHC 33.9 32.0 - [place] 35.7 g/dL [facility] LABORATORY Platelets 260 145 - 357 [facility] x10(3)/[facility] LABORATORY RDWSD 51.0 (H) 36.0 - [place] 45.0 [facility] LABORATORY RDWCV 14.9 (H) 11.4 - [facility] XIAO 13.8 % [facility] LABORATORY MPV 10.0 7.6 - 12.9 [facility] LABORATORY nRBC % Auto 0.0 % [facility] LABORATORY nRBC Abs Auto 0.000 0.000 - [place] 0.000 [facility] x10(3)/[facility] LABORATORY Specimen Anatomical Collection Method Collection Time Receive d Time (Source) Location / / Volume Laterality Blood 06/02/2022 8:20 AM 8:25 EDT AM EDT Resulting Agency Comment Spec In Lab Kurt Ames MD HEMATOLOGY ORDERABLES Performing Organization Address City/[facility]/ZIP [place] [address] Heparin (unfractionated) Level (06/02/2022 [...] [place] [address] Heparin (unfractionated) Level (06/02/2022 12:30 AM EDT) athologist Signature Heparin UFH 0.81 IU/mL [facility] LABORATORY Comment: Heparin [...] Victor MD HEMATOLOGY ORDERABLES Performing Organization Address City/[facility]/ZIP Code Phon e Number [address] Magnesium (06/02/2022 12:30 AM EDT) athologist Signature Magnesium 0.83 0.69 - 1.07 [facility] mmol/L [facility] LABORATORY Specimen Anatomical Collection Method Collection Time Receive d Time (Source) Location / / Volume Laterality Blood 06/02/2022 12:30 06/02/2022 AM EDT 12:40 AM EDT Resulting Agency Comment Spec In Lab Mahendra Victor MD CHEMISTRY ORDERABLES Performing Organization Address City/[facility] Phon e Number [address] (ABNORMAL) Basic Metabolic Panel (non-fasting) (06/02/2022 12:30 AM EDT) athologist Signature Glucose Lvl 151 65 - 199 [facility] mg/dL [facility] LABORATORY Comment: Diabetes: >=200 mg/dL plus symp toms BUN 12 10 - 20 mg/dL [facility] LABORATORY Creatinine 0.71 (L) 0.80 - 1.50 mg/dL [facility] LABORATORY Sodium 142 135 - 145 mmol/L [facility] LABORATORY Potassium 3.8 3.5 - 5.0 mmol/L [facility] LABORATORY Comment: Please note: ??Patients with [...] Anion Gap 10 5 - 15 mmol/L [facility] LABORATORY Calcium 8.1 (L) 8.5 - 10.5 mg/dL [facility] LABORATORY Estimated GFR 93 >=60 mL/min/1.73 [...] Organization Address City/State/ZIP Code Phon e Number [place] [id number] [facility]ITAL LAB[address]ORY Drive (ABNORMAL) Differential, Automated (06/01/2022 7:29 PM EDT) P athologist Signature Neutrophils % 68.8 % [facility] LABORATORY Neutr Abs (ANC) 5.34 1.70 - [facility] 6.10 [facility] x10(3)/[facility] LABORATORY Lymphocytes % 19.6 % [facility] LABORATORY Lymphocytes Abs 1.5 0.9 - 3.2 [facility] x10(3)/[facility] LABORATORY Monocytes % 8.1 % [facility] LABORATORY Monocyte Abs 0.6 0.3 - 0.9 [facility] x10(3)/[facility] LABORATORY Eosinophils % 1.8 % [facility] LABORATORY Eosinophils Abs 0.1 0.0 - 0.4 [facility] x10(3)/[facility] LABORATORY Basophils % 0.8 % [facility] LABORATORY Basophils Abs 0.1 0.0 - 0.1 [facility] x[facility](3[facility] LABORATORY Immature Gran % 0.90 % [...] [place] [address] (ABNORMAL) Hemogram (06/01/2022 7:29 PM EDT) Analysis Performed At Patho logist Time Signature WBC 7.8 4.0 - 9.5 [facility] x10(3)/[facility] LABORATORY RBC 2.65 (L) 4.58 - [place] [facility] 5.54 [facility] x10(6)/[facility] LABORATORY Hemoglobin 8.3 (L) 13.7 - [facility] 16.5 g/dL [facility] LABORATORY Hematocrit 24.8 (L) 40.5 - [facility] 48.5 % [facility] LABORATORY MCV 93.6 (H) 82.9 - [facility] XIAO 93.1 [facility] LABORATORY MCH 31.3 27.5 - [facility] 32.1 pg [facility] LABORATORY MCHC 33.5 32.0 - [facility] XIAO 35.7 g/dL [facility] LABORATORY Platelets 263 145 - 357 [facility] x10(3)/[facility] LABORATORY RDWSD 52.8 (H) 36.0 - [place] [facility] 45.0 [facility] LABORATORY RDWCV 15.4 (H) 11.4 - [facility] XIAO 13.8 % [facility] LABORATORY MPV 10.4 7.6 - 12.9 [facility] nRBC % Auto 0.0 % [facility] LABORATORY nRBC Abs Auto 0.000 0.000 - [place] HAGEN 0.000 [facility] x10(3)/[facility] LABORATORY Specimen Anatomical Collection Method Collection Time Receive d Time (Source) Location / / Volume Laterality Blood 06/01/2022 7:29 PM 2 7:29 EDT PM EDT Resulting Agency Comment Spec In Lab Kurt Ames MD HEMATOLOGY ORDERABLES Performing Organization Address City/[facility]/ZIP Code Phon e Number [address] Heparin (unfractionated) Level (06/01/2022 7:29 PM EDT) P athologist Signature Heparin UFH 0.81 IU/mL [facility] LABORATORY Comment: Heparin [...] [place] [address] (ABNORMAL) Heparin (unfractionated) Level (06/01/2022 11:32 AM EDT) Patholo gist Method Time Signature Heparin UFH 1.05 IU/mL [facility] Level (Critical) [facility] LABORATORY Comment: Critical Result called by [...] [place] [address] (ABNORMAL) Differential, Automated (06/01/2022 5:56 AM EDT) [facility] Method Time Signature Neutrophils % 62.7 % [facility] LABORATORY Neutr Abs (ANC) 6.11 (H) 1.70 - [facility] 6.10 [facility] x10(3)/[facility] LABORATORY Lymphocytes % 23.5 % [facility] LABORATORY Lymphocytes Abs 2.3 0.9 - 3.2 [facility] x10(3)/[facility] LABORATORY Monocytes % 10.0 % [facility] LABORATORY Monocyte Abs 1.0 (H) 0.3 - 0.9 [facility] x10(3)/[facility] LABORATORY Eosinophils % 2.2 % [facility] LABORATORY Eosinophils Abs 0.2 0.0 - 0.4 [facility] x10(3)/[facility] LABORATORY Basophils % 0.9 % [facility] LABORATORY Basophils Abs 0.1 0.0 - 0.1 [facility] x10(3)/[facility] LABORATORY Immature Gran % 0.70 % [facility] [...] Organization Address City/State/ZIP Code Phon e Number [place] [id number] HOSPITAL LAB[address]ORY Drive (ABNORMAL) Hemogram (06/01/2022 5:56 AM EDT) Analysis Performed At Patho logist Time Signature WBC 9.7 (H) 4.0 - 9.5 [facility] x10(3)/[facility] LABORATORY RBC 2.83 (L) 4.58 - [facility] XIAO 5.54 [facility] x10(6)/[facility] LABORATORY Hemoglobin 9.0 (L) 13.7 - [facility] 16.5 g/dL [facility] LABORATORY Hematocrit 26.7 (L) 40.5 - [facility] XIAO 48.5 % [facility] LABORATORY MCV 94.3 (H) 82.9 - [facility] 93.1 fL [facility] LABORATORY MCH 31.8 27.5 - [place] [facility] 32.1 pg [facility] LABORATORY MCHC 33.7 32.0 - [facility] XIAO 35.7 g/dL [facility] LABORATORY Platelets 250 145 - 357 [facility] x10(3)/[facility] LABORATORY RDWSD 54.3 (H) 36.0 - [place] [facility] 45.0 [facility] LABORATORY RDWCV 15.9 (H) 11.4 - [place] HAGEN 13.8 % [facility] LABORATORY MPV 10.5 7.6 - 12.9 [facility] XIAO [facility] LABORATORY nRBC % Auto 0.0 % [facility] LABORATORY nRBC Abs Auto 0.000 0.000 - [place] [facility] 0.000 [facility] x10(3)/[facility] LABORATORY Specimen Anatomical Collection Method Collection Time Receive d Time (Source) Location / / Volume Laterality Blood 06/01/2022 5:56 AM 2 6:05 EDT AM EDT Resulting Agency Comment Spec In Lab Arpita Valle MD HEMATOLOGY ORDERABLES Performing Organization Address City/State/ZIP [place] [address] Heparin (unfractionated) Level (06/01/2022 4:30 AM EDT) athologist Signature Heparin UFH 0.68 IU/mL [facility] LABORATORY Comment: Heparin [...] [place] [address] (ABNORMAL) Urinalysis with reflex Culture (06/01/2022 4:00 AM EDT) Patholo gist Method Time Signature Glucose UA 500 Negative [facility] (Critical) mg/dL [facility] LABORATORY Comment: Urinalysis result NOT critical without a combination of Glucose greater than or equal to 500 mg/dL AND Ketones greate r than or equal to 80 mg/dL Protein UA Negative Negative mg/dL [facility] LABORATORY Bilirubin UA Negative Negative mg/dL [facility] LABORATORY Comment: Clinical correlation required for positi ve Urine Bilirubin results as false positive may occur with some drugs and d rug related products. If a false positive is suspected a serum total bili quarles should be considered if clinically indicated. Urobilinogen UA Normal Normal mg/dL [facility] LABORATORY pH UA 6.0 5.0 - 8.0 [facility] LABORATORY Blood UA Negative Negative mg/dL [facility] LABORATORY Ketones UA Negative Negative mg/dL [facility] LABORATORY Nitrite UA Negative Negative [facility] LABORATORY Leukocytes UA Negative Negative [facility] LABORATORY Appearance UA Clear Clear [facility] LABORATORY Spec [place] UA >=1.030 (A) 1.005 - 1.030 [facility] LABORATORY Color UA Yellow Yellow [facility] LABORATORY Culture Reflexed No [facility] LABORATORY Specimen Anatomical Collection Method Collection Time Receive d Time (Source) Location / / Volume Laterality Clean Catch 06/01/2022 4:00 AM 4:26 Urine EDT AM EDT Resulting Agency Comment Spec In Lab Mahendra Victor MD URINE ORDERABLES Performing Organization Address City/State/ZIP Code Phon e Number [address] Magnesium (06/01/2022 1:00 AM EDT) P athologist Signature Magnesium 0.93 0.69 - 1.07 [facility] mmol/L [facility] LABORATORY Specimen Anatomical Collection Method Collection Time Receive d Time (Source) Location / / Volume Laterality Blood 06/01/2022 1:00 AM 2 1:37 EDT AM EDT Resulting Agency Comment Spec In Lab Mahendra Victor MD CHEMISTRY ORDERABLES Performing Organization Address City/State/ZIP Code Phon e Number [facility] [place] [address] (ABNORMAL) Basic Metabolic Panel (non-fasting) (06/01/2022 1:00 AM EDT) P athologist Signature Glucose Lvl 148 65 - 199 [facility] mg/dL [facility] LABORATORY Comment: Diabetes: >=200 mg/dL plus symp toms BUN 23 (H) 10 - 20 mg/dL [facility] LABORATORY Creatinine 0.78 (L) 0.80 - 1.50 mg/dL [facility] LABORATORY Sodium 141 135 - 145 mmol/L [facility] LABORATORY Potassium 4.0 3.5 - 5.0 mmol/L [facility] LABORATORY Comment: Please note: ??Patients with [...] Anion Gap 9 5 - 15 mmol/L [facility] LABORATORY Calcium 8.6 8.5 - 10.5 mg/dL [facility] LABORATORY Estimated GFR 91 >=60 mL/min/1.73 [...] [place] [address] (ABNORMAL) Differential, Automated (06/01/2022 12:00 AM EDT) athologist Signature Neutrophils % 64.6 % [facility] LABORATORY Neutr Abs (ANC) 5.60 1.70 - [facility] 6.10 [facility] x10(3)/[facility] LABORATORY Lymphocytes % 22.4 % [facility] LABORATORY Lymphocytes Abs 1.9 0.9 - 3.2 [facility] x10(3)/[facility] LABORATORY Monocytes % 9.5 % [facility] LABORATORY Monocyte Abs 0.8 0.3 - 0.9 [facility] x10(3)[facility] LABORATORY Eosinophils % 2.1 % [facility] LABORATORY Eosinophils Abs 0.2 0.0 - 0.4 [facility] x10(3)[facility] LABORATORY Basophils % 0.6 % [facility] LABORATORY Basophils Abs 0.0 0.0 - 0.1 [facility] x10(3)/[facility] LABORATORY Immature Gran % 0.80 % [...] - 0.04 x10(3)/[facility] LABORATORY Specimen (Source) Anatomical Collection Method Collection Time Re ceived Time Location / / Volume Laterality Blood 06/01/2022 06/01/2022 12:1 0 AM EDT Resulting Agency Comment Spec In Lab Arpita Valle MD HEMATOLOGY ORDERABLES Performing Organization Address City/State/ZIP [place] [address] (ABNORMAL) Hemogram (06/01/2022 12:00 AM EDT) Analysis Performed At Patho logist Time Signature WBC 8.7 4.0 - 9.5 [facility] LABORATORY RBC 2.77 (L) 4.58 - [place] 5.54 [facility] x10(6)/[facility] LABORATORY Hemoglobin 8.6 (L) 13.7 - [place] 16.5 g/dL [facility] LABORATORY Hematocrit 25.7 (L) 40.5 - [facility] XIAO 48.5 % [facility] LABORATORY MCV 92.8 82.9 - [facility] XIAO 93.1 [facility] LABORATORY MCH 31.0 27.5 - [place] 32.1 pg [facility] LABORATORY MCHC 33.5 32.0 - [place] 35.7 g/dL [facility] LABORATORY Platelets 260 145 - 357 [facility] x10(3)/[facility] LABORATORY RDWSD 51.9 (H) 36.0 - [facility] XIAO 45.0 [facility] LABORATORY RDWCV 15.5 (H) 11.4 - [place] 13.8 % [facility] LABORATORY MPV 10.4 7.6 - 12.9 [facility] nRBC % Auto 0.0 % [facility] LABORATORY nRBC Abs Auto 0.000 0.000 - [place] 0.000 [facility] x10(3)/[facility] LABORATORY Specimen (Source) Anatomical Collection Method Collection Time Re ceived Time Location / / Volume Laterality Blood 06/01/2022 06/01/2022 12:1 0 AM EDT Resulting Agency Comment Spec In Lab Arpita Valle MD HEMATOLOGY ORDERABLES Performing Organization Address City/State/ZIP Code [place] [address] (ABNORMAL) Differential, Automated (05/31/2022 9:17 PM EDT) P athologist Signature Neutrophils % 59.6 % [facility] LABORATORY Neutr Abs (ANC) 3.98 1.70 - [facility] 6.10 [facility] x10(3)/[facility] LABORATORY Lymphocytes % 27.5 % [facility] LABORATORY Lymphocytes Abs 1.8 0.9 - 3.2 [facility] x10(3)/[facility] LABORATORY Monocytes % 9.1 % [facility] LABORATORY Monocyte Abs 0.6 0.3 - 0.9 [facility] x10(3)/[facility] LABORATORY Eosinophils % 2.4 % [facility] LABORATORY Eosinophils Abs 0.2 0.0 - 0.4 [facility] x10(3)/[facility] LABORATORY Basophils % 0.7 % [facility] LABORATORY Basophils Abs 0.0 0.0 - 0.1 [facility] x10(3)/[facility] LABORATORY Immature Gran % 0.70 % [...] Organization Address City/State/ZIP Code Phon e Number [place] [id number] HOSPITAL LABORATORY Drive (ABNORMAL) Hemogram (05/31/2022 9:17 PM EDT) Analysis Performed At Patho logist Time Signature WBC 6.7 4.0 - 9.5 [facility] x10(3)/[facility] LABORATORY RBC 2.74 (L) 4.58 - [place] 5.54 [facility] x10(6)/[facility] LABORATORY Hemoglobin 8.5 (L) 13.7 - [facility] 16.5 g/dL [facility] LABORATORY Hematocrit 25.7 (L) 40.5 - [facility] 48.5 % [facility] LABORATORY MCV 93.8 (H) 82.9 - [facility] 93.1 [facility] LABORATORY MCH 31.0 27.5 - [facility] 32.1 pg [facility] LABORATORY MCHC 33.1 32.0 - [facility] 35.7 g/dL [facility] LABORATORY Platelets 233 145 - 357 [facility] x10(3)/[facility] LABORATORY RDWSD 51.9 (H) 36.0 - [facility] 45.0 [facility] LABORATORY RDWCV 15.3 (H) 11.4 - [facility] 13.8 % [facility] LABORATORY MPV 10.3 7.6 - 12.9 [facility] LABORATORY nRBC % Auto 0.0 % [facility] LABORATORY nRBC Abs Auto 0.000 0.000 - [facility] 0.000 [facility] x10(3)/[facility] LABORATORY Specimen Anatomical Collection Method Collection Time Receive d Time (Source) Location / / Volume Laterality Blood 05/31/2022 9:17 PM 9:25 EDT PM EDT Resulting Agency Comment Spec In Lab Arpita Valle MD HEMATOLOGY ORDERABLES Performing Organization Address City/State/ZIP [place] [address] Transfuse RBC (05/31/2022 7:36 PM EDT) Regina Hinds MD NURSING TREATMENT ORDERABLES - BLOOD ADMIN Transfuse RBC (05/31/2022 7:36 PM EDT) Regina Hinds MD NURSING TREATMENT ORDERABLES - BLOOD ADMIN UPPER GI ENDOSCOPY (05/31/2022 3:37 PM EDT) Component Value Ref Test Analysis Performed At Patholo gist Range Method Time Signature UPPER GI [facility] PROVATION ENDOSCOPY Endoscopy Procedure Date: 05/31/2022 3:37 PM ? Patient Name: Koko Zamora ? Date of : 1940 ? Age: 81 ? Order #: [id number] ? Instrument Name: [id number] ? Procedure: ? Upper GI endoscopy Indications: [...] Procedure Code(s): ? --- Professional --- ? 71539, Esophagogastroduode noscopy, ? flexible, transoral; with control [...] stomach ? and duodenum CPT copyright 2020 [employer]. All rights reserved. The codes documented in this report are preliminary and upon pharmacy technician per diem review may be revised to meet current [...] who have questions please contact the health respiratory care practitioner that requested your imaging first. ? Narrative [...] enlarged lymph nodes. Vasculature: Patent common iliac, linotyper al iliac, and common femoral arteries bilaterally. [...] enlarged lymph nodes. Vasculature: Patent common iliac, linotyper al iliac, and common femoral arteries bilaterally. [...] ho have questions please contact the health respiratory care practitioner that requested your imaging first. Regina Hinds MD IMG CT ORDERABLES Type and Screen Validity (05/31/2022 1:43 PM EDT) [facility] Method Time Signature T&S only valid [facility] LABORATORY Comment: This Type and Screen result is only valid at the [facility] Hospital Specimen Anatomical Collection Method Collection Time Receive d Time (Source) Location / / Volume Laterality Blood 05/31/2022 1:43 PM 2 1:57 EDT PM EDT Resulting Agency Comment Spec In Lab Regina Hinds MD BLOOD BANK ORDERABLES Performing Organization Address City/[facility]/ZIP [place] [address] ABORH Recheck Status (05/31/2022 1:43 PM EDT) [facility] Method Time Signature ABORH Type Completed [facility] LABORATORY Specimen Anatomical Collection Method Collection Time Receive d Time (Source) Location / / Volume Laterality Blood 05/31/2022 1:43 PM 2 1:57 EDT PM EDT Resulting Agency Comment Spec In Lab Regina Hinds MD BLOOD BANK ORDERABLES Performing Organization Address City/[facility]/ZIP [place] [address] Antibody screen (05/31/2022 1:43 PM EDT) [facility] Method Jamul Signature Ab Screen Negative [facility] LABORATORY Expires at 06/03/2022 [facility] [id number] on: [facility] LABORATORY Specimen Anatomical Collection Method Collection Time Receive d Time (Source) Location / / Volume Laterality Blood 05/31/2022 1:43 PM 2 1:57 EDT PM EDT Resulting Agency Comment Spec In Lab Regina Hinds MD BLOOD BANK ORDERABLES Performing Organization Address City/[facility]/ZIP [place] [address] ABO/Rh Typing (05/31/2022 1:43 PM EDT) P athologist Signature ABORh Type O Pos [facility] LABORATORY Specimen Anatomical Collection Method Collection Time Receive d Time (Source) Location / / Volume Laterality Blood 05/31/2022 1:43 PM 2 1:57 EDT PM EDT Resulting Agency Comment Spec In Lab Regina Hinds MD BLOOD BANK ORDERABLES Performing Organization Address City/[facility] [place] [address] Prepare RBC (05/31/2022 1:35 PM EDT) P athologist Signature Dispensed? Yes [facility] LABORATORY Specimen Anatomical Collection Method Collection Time Receive d Time (Source) Location / / Volume Laterality Blood 05/31/2022 1:35 PM 2 1:30 EDT PM EDT Regina Hinds MD BLOOD BANK ORDERABLES Performing Organization Address City/[facility]/ZIP [place] [address] Prepare RBC (05/31/2022 1:25 PM EDT) P athologist Signature Dispensed? Yes [facility] LABORATORY Specimen Anatomical Collection Method Collection Time Receive d Time (Source) Location / / Volume Laterality Blood 05/31/2022 1:25 PM 2 1:23 EDT PM EDT Regina Hinds MD BLOOD BANK ORDERABLES Performing Organization Address City/[facility] [place] [address] (ABNORMAL) Differential, Automated (05/31/2022 12:44 PM EDT) P athologist Signature Neutrophils % 62.0 % [facility] LABORATORY Neutr Abs (ANC) 4.71 1.70 - [facility] 6.10 [facility] x10(3)/[facility] LABORATORY Lymphocytes % 24.1 % [facility] LABORATORY Lymphocytes Abs 1.8 0.9 - 3.2 [facility] x10(3)/[facility] LABORATORY Monocytes % 10.8 % [facility] LABORATORY Monocyte Abs 0.8 0.3 - 0.9 [facility] x10(3)/[facility] LABORATORY Eosinophils % 1.6 % [facility] LABORATORY Eosinophils Abs 0.1 0.0 - 0.4 [facility] x10(3)/[facility] LABORATORY Basophils % 0.7 % [facility] LABORATORY Basophils Abs 0.0 0.0 - 0.1 [facility] x10(3)/[facility] LABORATORY Immature Gran % 0.80 % [...] Abs 0.06 (H) 0.00 - 0.04 x10(3)/[facility] LABORATORY Specimen Anatomical Collection Method Collection Time Receive d Time (Source) Location / / Volume Laterality Blood 05/31/2022 12:44 05/31/2022 PM EDT 12:57 PM EDT Resulting Agency Comment Spec In Lab Brittany Ramirez MD HEMATOLOGY ORDERABLES Performing Organization Address City/State/ZIP Code Phon e Number [place] [id number] HOSPITAL LABORATORY Drive (ABNORMAL) Hemogram (05/31/2022 12:44 PM EDT) Analysis Performed At Patho logist Time Signature WBC 7.6 4.0 - 9.5 [facility] x10(3)/[facility] LABORATORY RBC 2.11 (L) 4.58 - [facility] 5.54 [facility] x10(6)/[facility] LABORATORY Hemoglobin 6.9 (L) 13.7 - [facility] 16.5 g/dL [facility] LABORATORY Hematocrit 20.8 (L) 40.5 - [facility] 48.5 % [facility] LABORATORY MCV 98.6 (H) 82.9 - [facility] 93.1 [facility] LABORATORY MCH 32.7 (H) 27.5 - [facility] 32.1 pg [facility] LABORATORY MCHC 33.2 32.0 - [facility] 35.7 g/dL [facility] Platelets 255 145 - 357 [facility] x10(3)/[facility] LABORATORY RDWSD 47.7 (H) 36.0 - [facility] 45.0 [facility] RDWCV 13.4 11.4 - [facility] 13.8 % [facility] LABORATORY MPV 10.7 7.6 - 12.9 [facility] LABORATORY nRBC % Auto 0.0 % [facility] nRBC Abs Auto 0.000 0.000 - [facility] 0.000 [facility] x10(3)/[facility] LABORATORY Specimen Anatomical Collection Method Collection Time Receive d Time (Source) Location / / Volume Laterality Blood 05/31/2022 12:44 05/31/2022 PM EDT 12:57 PM EDT Resulting Agency Comment Spec In Lab Brittany Ramirez MD HEMATOLOGY ORDERABLES Performing Organization Address City/State/ZIP [place] [address] (ABNORMAL) BLOOD GAS 2 VENOUS (05/31/2022 11:24 AM EDT) P athologist Signature pH [place] 7.38 7.32 - [facility] 7.42 [facility] LABORATORY pCO2 [place] 40 (L) 41 - 51 [facility] LABORATORY pO2 [place] 18 (L) 25 - 40 [facility] LABORATORY HCO3 [place] 23.3 mmol/L [facility] LABORATORY BE [place] -1.8 mmol/L [facility] LABORATORY Hgb Blood Gas 7.0 (L) 13.7 - [facility] 16.5 g/dL [facility] LABORATORY O2HB [place] 24.3 % [facility] LABORATORY COHB [place] 1.4 % [facility] Comment: Nonsmokers: 0.5-1.5% COHB Smokers: Variable, but usually less than 10% Toxic: 20-30% COHB Lethal: Greater than 60% COHB METHB [place] 1.7 (H) <=1.5 % [facility] LABORATORY Na Whole Blood 137 135 [...] Lactate WB 1.4 0.5 - 2.2 mmol/L [facility] LABORATORY BGas Source Venous [facility] LABORATORY Specimen Anatomical Collection Method Collection Time Receive d Time (Source) Location / / Volume Laterality Blood 05/31/2022 11:24 05/31/2022 AM EDT 11:24 AM EDT Regina Hinds MD CHEMISTRY ORDERABLES Performing Organization Address City/State/ZIP [place] [address] TSH Morven (05/31/2022 11:20 AM EDT) P athologist Signature TSH 1.67 0.27 - 4.20 [facility] mcIU/mL [facility] LABORATORY Comment: Reference Interval (mcIU/mL): Females: ??First Trimester: 0.23-3.88 ??Second Trimester: 0.22-3.90 ??Third Trimester: 0.44-4.66 Specimen Anatomical Collection Method Collection Time Receive d Time (Source) Location / / Volume Laterality Blood 05/31/2022 11:20 05/31/2022 AM EDT 11:28 AM EDT Resulting Agency Comment Spec In Lab Regina Hinds MD CHEMISTRY ORDERABLES Performing Organization Address City/State/ZIP [place] [address] XR Chest PA & [...] who have questions please contact the health respiratory care practitioner that requested your imaging first. ? Narrative [...] ho have questions please contact the health respiratory care practitioner that requested your imaging first. Regina Hinds MD IMG DX ORDERABLES Lipase (05/31/2022 10:50 AM EDT) athologist Signature Lipase 41 0 - 60 [facility]/L [facility] LABORATORY Specimen Anatomical Collection Method Collection Time Receive d Time (Source) Location / / Volume Laterality Blood Venous Draw / 05/31/2022 10:50 05/31/2022 Unknown AM EDT 11:11 AM EDT Resulting Agency Comment Spec In Lab Zain Champion MD CHEMISTRY ORDERABLES Performing Organization Address City/State/ZIP [place] [address] (ABNORMAL) Hepatic Function Panel (05/31/2022 10:50 AM EDT) Analysis Performed At Patho logist Time Signature Total Protein 6.4 6.1 - 8.0 [facility] g/dL [facility] LABORATORY Albumin 4.1 3.2 - 5.2 [facility] X[facility] g/dL [facility] LABORATORY AST 24 0 - 39 [facility]/L [facility] LABORATORY ALT 44 0 - 55 [facility] unit/L [facility] LABORATORY Alk Phos 63 40 - 130 [facility]L [facility] LABORATORY Total <0.2 (L) 0.2 - 1.3 [facility] Bilirubin mg/dL [facility] LABORATORY Bili, Direct 0.1 0.0 - 0.3 [facility] mg/dL [facility] LABORATORY Specimen Anatomical Collection Method Collection Time Receive d Time (Source) Location / / Volume Laterality Blood Venous Draw / 05/31/2022 10:50 05/31/2022 Unknown AM EDT 11:11 AM EDT Resulting Agency Comment Spec In Lab Zain Champion MD CHEMISTRY ORDERABLES Performing Organization Address City/[facility]/ZIP Code Phon e Number [address] Blue Tube HOLD (05/31/2022 10:50 AM EDT) P athologist Signature Blue Hold Sample in [facility] lab. [facility] LABORATORY Specimen Anatomical Collection Method Collection Time Receive d Time (Source) Location / / Volume Laterality Blood Venous Draw / 05/31/2022 10:50 05/31/2022 Unknown AM EDT 11:05 AM EDT Brittany Ramirez MD HEMATOLOGY ORDERABLES Performing Organization Address City/[facility]/ZIP Code Phon e Number [address] (ABNORMAL) Differential, Automated (05/31/2022 10:50 AM EDT) P athologist Signature Neutrophils % 66.9 % [facility] LABORATORY Neutr Abs (ANC) 5.58 1.70 - [facility] 6.10 [facility] x10(3)/[facility] LABORATORY Lymphocytes % 22.2 % [facility] LABORATORY Lymphocytes Abs 1.8 0.9 - 3.2 [facility] x10(3)/[facility] LABORATORY Monocytes % 7.8 % [facility] LABORATORY Monocyte Abs 0.6 0.3 - 0.9 [facility] x10(3)/[facility] LABORATORY Eosinophils % 1.2 % [facility] LABORATORY Eosinophils Abs 0.1 0.0 - 0.4 [facility] x10(3)/[facility] LABORATORY Basophils % 0.7 % [facility] LABORATORY Basophils Abs 0.1 0.0 - 0.1 [facility] x10(3)/[facility] LABORATORY Immature Gran % 1.20 % [...] Abs 0.10 (H) 0.00 - 0.04 x10(3)/[facility] LABORATORY Specimen Anatomical Collection Method Collection Time Receive d Time (Source) Location / / Volume Laterality Blood 05/31/2022 10:50 05/31/2022 AM EDT 11:03 AM EDT Resulting Agency Comment Spec In Lab Brittany Ramirez MD HEMATOLOGY ORDERABLES Performing Organization Address City/State/ZIP Code Phon e Number [place] [id number] HOSPITAL LABORATORY Drive (ABNORMAL) Hemogram (05/31/2022 10:50 AM EDT) Analysis Performed At Patho logist Time Signature WBC 8.3 4.0 - 9.5 [facility] x10(3)/[facility] LABORATORY RBC 2.26 (L) 4.58 - [facility] 5.54 [facility] x10(6)/[facility] LABORATORY Hemoglobin 7.4 (L) 13.7 - [facility] 16.5 g/dL [facility] LABORATORY Hematocrit 22.3 (L) 40.5 - [facility] 48.5 % [facility] LABORATORY MCV 98.7 (H) 82.9 - [facility] 93.1 fL [facility] LABORATORY MCH 32.7 (H) 27.5 - [place] 32.1 pg [facility] LABORATORY MCHC 33.2 32.0 - [place] 35.7 g/dL [facility] LABORATORY Platelets 283 145 - 357 [place] x10(3)/[facility] LABORATORY RDWSD 47.0 (H) 36.0 - [place] 45.0 [facility] LABORATORY RDWCV 13.4 11.4 - [place] 13.8 % [facility] LABORATORY MPV 10.8 7.6 - 12.9 [place] [facility] LABORATORY nRBC % Auto 0.0 % [facility] LABORATORY nRBC Abs Auto 0.000 0.000 - [facility] XIAO 0.000 [facility] x10(3)/[facility] LABORATORY Specimen Anatomical Collection Method Collection Time Receive d Time (Source) Location / / Volume Laterality Blood 05/31/2022 10:50 05/31/2022 AM EDT 11:03 AM EDT Resulting Agency Comment Spec In Lab Brittany Ramirez MD HEMATOLOGY ORDERABLES Performing Organization Address City/State/ZIP Code Phon e Number [address] Phosphorus (05/31/2022 10:50 AM EDT) P athologist Signature Phosphorus 3.2 2.5 - 4.5 [facility] mg/dL [facility] LABORATORY Specimen Anatomical Collection Method Collection Time Receive d Time (Source) Location / / Volume Laterality Blood 05/31/2022 10:50 05/31/2022 AM EDT 11:03 AM EDT Resulting Agency Comment Spec In Lab Regina Hinds MD CHEMISTRY ORDERABLES Performing Organization Address City/State/ZIP Code Phon e Number [address] Magnesium (05/31/2022 10:50 AM EDT) P athologist Signature Magnesium 0.93 0.69 - 1.07 [facility] XIAO mmol/L [facility]OR[facility] Specimen Anatomical Collection Method Collection Time Receive d Time (Source) Location / / Volume Laterality Blood 05/31/2022 10:50 05/31/2022 AM EDT 11:03 AM EDT Resulting Agency Comment Spec In Lab Regina Hinds MD CHEMISTRY ORDERABLES Performing Organization Address City/State/ZIP Code Phon e Number [address] (ABNORMAL) pro-Brain Natriuretic Peptide (05/31/2022 10:50 AM EDT) athologist Signature ProBNP 1,077 (H) <=449 [facility] [employer] pg/mL [facility]OR[facility] Specimen Anatomical Collection Method Collection Time Receive d Time (Source) Location / / Volume Laterality Blood 05/31/2022 10:50 05/31/2022 AM EDT 11:03 AM EDT Resulting Agency Comment Spec In Lab Regina Hinds MD CHEMISTRY ORDERABLES Performing Organization Address City/State/ZIP [place] [address] Troponin (05/31/2022 10:50 AM EDT) athologist Signature Troponin-T <0.01 0.00 - 0.00 [facility] XIAO ng/mL [facility] Comment: The 99th percentile [...] additional sample may be indicated. Reference: Third Eldena Definition of Myocardial Infarction. Journal of the [place] [employer]iology 2012;60:1581-98 Specimen Anatomical Collection Method Collection Time Receive d Time (Source) Location / / Volume Laterality Blood 05/31/2022 10:50 05/31/2022 AM EDT 11:03 AM EDT Resulting Agency Comment Spec In Lab Regina Hinds MD CHEMISTRY ORDERABLES Performing Organization Address City/State/ZIP Code Phon e Number [place] [phone] (ABNORMAL) Basic Metabolic Panel (non-fasting) (05/31/2022 10:50 AM EDT) athologist Signature Glucose Lvl 223 (H) 65 - 199 [facility] mg/dL [facility] Comment: Diabetes: >=200 mg/dL plus symp toms BUN 39 (H) 10 - 20 mg/dL [facility] Creatinine 0.91 0.80 - 1.50 mg/dL [facility] Sodium 140 135 - 145 mmol/L [facility] Potassium 4.1 3.5 - 5.0 mmol/L [facility] Comment: Please note: ??Patients with [...] Anion Gap 10 5 - 15 mmol/L [facility] Calcium 9.1 8.5 - 10.5 mg/dL [facility] Estimated GFR 86 >=60 mL/min/1.73 [...] Organization Address City/State/ZIP [place] [address] EKG 12 Lead (05/31/2022 10:11 AM EDT) Component Value Ref Range Test Analysis Performed Pathologis t Method Time At Signature Ventricular rate 106 BPM MUSE SYSTEM QRS Duration 122 ms MUSE SYSTEM Q-T Interval 368 ms MUSE SYSTEM QTC Calculated 488 ms MUSE SYSTEM (Bezet) Calculated R [place] -43 degrees MUSE SYSTEM Calculated T [place] 109 degrees MUSE SYSTEM INTERPRETATION Atrial fibrillation with rapid ventricular response MUSE SYSTEM Left axis deviation Minimal voltage criteria for LVH, may be normal variant ( [place] product ) Cannot rule out Anterior infarct , age undetermined Abnormal ECG When compared with ECG of 20-MAY-2022 19:04, No significant change was found I personally reviewed the tracing and edited the fellows int erpretation Confirmed by fellow MD Mike, [place] ([id number]) on 022 8:36:21 PM Confirmed by MD [...] (Lidoderm) 5% patch 2 patch(Linked Group 1) 2973 (Patch Applied - Provider: Raven Barbour RN [...] - Less than 0.1 international unit/mL: Ad fitter machinist 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 to med 0-4,000 Units, Intravenous, [facility], Starting on Fri05/31/22 at 2014, [...]
Routine documented in this encounter Care Teams Music Store Manager Relationship Specialty Start Date End Date Bobby Das MD PCP - General 10/02/[address] [place] [address] [place] [phone] documented as of this encounter
--- OUTSIDE RECORDS SUMMARY | 2022-07-17 10:36 | XMS_ITS | Encounter Summary ---
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 Loretta Cohen MD Leboeuf, Matthew R, MD [facility] [address] [place] [address] [place] [address] Fax: Referral ID Status Reason Start Date Expiration Visits Visits Date Requested Authorized [id number] Authorized Consult, 06/17/2022 06/17/2023 1 1 Test & Treat Encounter Details Date Type Department Care Team Description 06/17/2022 Orders Only Dermatology at [facility] Basal cell carcinoma Nicol CARCAMO (BCC) of right [address] [place] [phone] DERMATOLOGY [place], [place] [address] Social History Tobacco Use Types [...] Negra Collins MD [facility] GASTROENTEROLOGY DEPT [place], [place] [address] (Wo rk) 09/05/2022 Appointment Cardiology Trinity Reid MD [facility] CARDIOLOGY [place], [place] [address] (Wo rk) 09/05/2022 Office Visit Cardiology Trinity Reid MD [facility] CARDIOLOGY [place], [place] [address] (Wo rk) Scheduled Referrals Name Type Priority Associated Order Schedule Diagnoses Referral to Outpatient Referral Routine Basal cell Ordered: Dermatology carcinoma (BCC) of 2 right forehead documented as of this encounter Visit Diagnoses Diagnosis Basal cell carcinoma (BCC) of right fore head documented in this encounter Care Teams Food Safety Director Relationship Specialty Start Date End Date Bobby Das MD PCP - General 10/02/[address] [place] [address] [place] [phone] documented as of this encounter
--- OUTSIDE RECORDS SUMMARY | 2022-07-17 10:36 | XMS_ITS | Encounter Summary ---
:1940 Author Organization [facility] [place] [address] Care Team Providers Name Role Phone Bobby Das MD Primary Care Provider Reason for Referral Diagnostic Test (Routine) - Authorized Specialty Diagnoses / Procedures Referred By Contact Refer red To Contact Cardiology Diagnoses HFrEF (heart failure with reduced ejection fraction) Alan Reid MD [facility] Non-Inv Card Lab Procedures [place]chocardi[place] [address] [place] [address] Fax: Referral ID Status Reason Start Expiration Visits Visits Date Date Requested Authorized [id number] Authorized Specialty 06/13/2022 06/13/2023 1 1 Service Requested Reason for Visit Consultation (Routine) - Closed Specialty Diagnoses / Procedures Referred By Contact Refer red To Contact Cardiology Diagnoses HFrEF (heart failure with reduced ejection fraction) Paroxysmal atrial fibrillation Post-hospital follow-up, s/p PCI with stenting, heart failure Nasrin Parra PA [facility] [place] [address] [place] [address] Referral ID Status Reason Start Date Expiration Date Visits V isits Requested Authorized [id number] Closed Consult, 05/21/2022 05/21/2023 1 1 Test & Treat Encounter Details Date Type Department Care Team Description 06/13/2022 Office Visit Cardiology at [facility] Alan Reid Coronary artery disease invo lving wiyot coronary artery of wiyot heart without angina pectoris; [facility] MD Kurt HFrEF (heart failure with reduced ejecti on fraction); Drive [facility] [place] [address] CARDIOLOGY [phone] [place], [place] [address] Social History Tobacco Use Types [...] the original note were not included. [facility] [place] [phone] CARDIOLOGY OUTPATIENT PROGRESS NOTE PRIMARY CARE PROVIDER: Bobby Das MD REFERRING PROVIDER: Nasrin Parra PROBLEM LIST: Patient Active Problem List Diagnosis ??? 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 Hypertriglyceridemia ??? Adhesive [...] 3 ??? fluticasone propionate (FLONASE) 50 mcg/actuation [place], Suspension 1 spray by Each Nare route [...] healing well. Markedly diminished left radial pulse. DIRECTOR OPERATIONS BROADCAST: Normal mentation. Psych: Appropriate affect. Labs: Lab [...] device therapy possiblyincluding AV node ablation and YIELD ANALYST-D. 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 documented in this encounter Plan of Treatment Upcoming Encounters Date Type Specialty Care Team Description 08/08/2022 Office Visit Gastroenterology Negra Collins MD [facility] DR GASTROENTEROLOGY DEPT [place], [place] [address] (Wo rk) 09/05/2022 Appointment Cardiology Trinity Reid MD [facility] CARDIOLOGY [place], [place] [address] (Wo rk) 09/05/2022 Office Visit Cardiology Trinity Reid MD [facility] CARDIOLOGY [place], [place] [address] (Wo rk) Scheduled Orders Name Type Priority Associated Order Schedule Diagnoses Echocardiogram Echocardiography Routine HFrEF (heart Expected: Transthoracic failure with 08/13/2022, reduced ejection Expires: fraction) 02/12/2023 documented as of this encounter Visit Diagnoses Diagnosis 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
--- OUTSIDE RECORDS SUMMARY | 2022-07-17 10:36 | XMS_ITS | Encounter Summary ---
:1940 Author Organization [facility] [place] [address] Care Team Providers Name Role Phone Bobby Das MD Primary Care Provider Encounter Details Date Type Department Care Team Description 07/01/2022 Telephone Dermatology at [facility], Zainab Dupree, CYTOLOGY LABORATORY MANAGER [address] [place] [phone] Social History Tobacco Use Types Packs/Day [...] Negra Collins MD [facility] DR GASTROENTEROLOGY DEPT [place], [place] [address] (Wo rk) 09/05/2022 Appointment Cardiology Trinity Reid MD [facility] CARDIOLOGY [place], [place] [address] (Wo rk) 09/05/2022 Office Visit Cardiology Trinity Reid MD [facility] CARDIOLOGY [place], [place] [address] (Wo rk) documented as of this encounter Visit Diagnoses Not on filedocumented in this encounter Care Teams Tufting Supervisor Relationship Specialty Start Date End Date Bobby Das MD PCP - General 10/02/[address] [place] [address] [place] [phone] documented as of this encounter
--- OUTSIDE RECORDS SUMMARY | 2022-07-17 10:36 | XMS_ITS | Encounter Summary ---
:1940 Author Organization [facility] Address [facility] [place] [address] Care Team Providers Name Role Phone Bobby Das MD Primary Care Provider Encounter Details Date Type Department Care Team Description 06/24/2022 Telephone Gastroenterology at [facility] Alan August MD [facility] [place] [phone] GASTROENTEROLOGY DEPT [phone] [place], [place] [address] (Wo rk) Social History Tobacco [...] data. [facility] [...] and no diverticulosis. This was done at [facility]. HgB 8.6 today. There has [...] MD [facility] GASTROENTEROLOGY DEPT [place], [place] [address] (Wo rk) 09/05/2022 Appointment Cardiology Trinity Reid MD [facility] CARDIOLOGY [place], [place] [address] (Wo rk) 09/05/2022 Office Visit Cardiology Trinity Reid MD [facility] CARDIOLOGY [place], [place] [address] (Wo rk) documented as of this encounter Visit Diagnoses Not on filedocumented in this encounter Care Teams Guest Room Attendant Relationship Specialty Start Date End Date Bobby Das MD PCP - General 10/02/[address] [place] [address] [place] [phone] documented as of this encounter
--- OUTSIDE RECORDS SUMMARY | 2022-07-17 10:36 | XMS_ITS | Encounter Summary ---
:1940 Author Organization [facility] [place] [address] Care Team Providers Name Role Phone Bobby Das MD Primary Care Provider Reason for Visit Auth/Cert Specialty Diagnoses / Procedures Referred By Contact Refer red To Contact Diagnoses GIB (gastrointestinal bleeding) Abe [facility] [place] [address] Referral ID Status Reason Start Date Expiration Date Visits Requ ested Visits Authorized [id number] 1 1 Encounter Details Date Type Department Care Team Description 05/31/2022 Anesthesia Event [place]ology [place] [facility] Elmer Johnson MD [facility] [place] [address] [facility] Yogi Machado CRNA [facility] [place] [address] [place] [address] Anesthesia Record Procedure Summary Procedure Name [...] fossa), DION Carpenter Alysia O, RN right; bney-acx-sfpmgy catheter system; 20 gauge; no longer indicated, [...] Procedure Summary Date: 05/31/22 Room / Location: [facility] ENDO 3 / [facility] ENDOSCOPY Anesthesia Start: 1603 Anesthesia Stop: 165 Procedures: EGD, UPPER GI ENDOSCOPY (N/A Trunk) EGD, W CONTROL OF BLEEDING, ANY METHOD Diagnosis: (melena) Surgeons: Giovani Ponce MD Responsible Provider: Elmer Johnson MD Anesthesia Type: MAC ASA Status: 3 All Anesthesia Providers: Anesthesiologist: Elmer Johnson MD ACCESS LIAISON: Yogi Dawkins CRNA Vitals Value Taken Time BP 95/62 05/31/22 1720 Temp Pulse Resp 18 05/31/22 1720 SpO2 99 % 05/31/22 1720 Pain Level 0 05/31/22 1720 [facility] Level of Consciousness: Awake and Alert Pain [...] IR Biopsy Spine 07/20/2019 Bobby Marshall MD [facility] INTERVENTIONL RAD ??? IR VERTEBROPLASTY LUMBAR MULTIPLE LEVELS 07/20/2019 IR Vertebroplasty Lumbar Multiple Levels 07/20/2019 Bobby Marshall MD [facility] INTERVENTIONL [...] risks discussed with patient. Plan discussed with ACCESS LIAISON. Anesthesia Screening documented in this encounter Plan of Treatment Upcoming Encounters Date Type Specialty Care Team Description 08/08/2022 Office Visit Gastroenterology Negra Collins MD [facility] GASTROENTEROLOGY DEPT [place], [place] [address] (Wo rk) 09/05/2022 Appointment Cardiology Trinity Reid MD [facility] CARDIOLOGY [place], [place] [address] (Wo rk) 09/05/2022 Office Visit Cardiology Trinity Reid MD [facility] CARDIOLOGY [place], [place] [address] (Wo rk) documented as of [...] mg documented in this encounter Care Teams Bean Snipper Relationship Specialty Start Date End Date Bobby Das MD PCP - General 10/02/[address] [place] [address] [place] [phone] documented as of this encounter
--- OUTSIDE RECORDS SUMMARY | 2022-07-17 10:36 | XMS_ITS | Encounter Summary ---
:1940 Author Organization [facility] [place] [address] Care Team Providers Name Role Phone Bobby Das MD Primary Care Provider Encounter Details Date Type Department Care Team Description 06/23/2022 Telephone Gastroenterology at [facility] Alan August MD [facility] [phone] GASTROENTEROLOGY DEPT [phone] [place], [place] [address] (Wo rk) Social History Tobacco [...] Date: 06/23/2022 Time: 2:27 AM Referring Location: [facility] Referring Provider: Shahram Urena DC HPI: This [...] medical record, imaging, and laboratory findings. Alan Auugst MD PGY-5, Gastroenterology documented in this encounter Plan of Treatment Upcoming Encounters Date Type Specialty Care Team Description 08/08/2022 Office Visit Gastroenterology Negra Collins MD [facility] GASTROENTEROLOGY DEPT [place], [place] [address] ( rk) 09/05/2022 Appointment Cardiology Trinity Reid MD [facility] CARDIOLOGY [place], [place] [address] ( rk) 09/05/2022 Office Visit Cardiology Trinity Reid MD [facility] CARDIOLOGY [place], [place] [address] ([facility]) documented as of this encounter Visit Diagnoses Not on filedocumented in this encounter Care Teams Repair Mechanic Relationship Specialty Start Date End Date Bobby Das MD PCP - General 10/02/[address] [place] [address] [place] [phone] documented as of this encounter
--- OUTSIDE RECORDS SUMMARY | 2022-07-17 10:36 | XMS_ITS | Encounter Summary ---
:1940 Author Organization [facility] [place] [address] Care Team Providers Name Role Phone Abby Das MD Primary Care Provider Encounter Details Date Type Department Care Team Description 06/25/2022 Anesthesia Event [place] [facility] Abby Alfaro MD [facility] [place] [address] [facility] David Lewis CRNA [facility] [place] [address] [place] [address] Anesthesia Record Procedure Summary Procedure Name [...] vein (antecubital fossa), Mame Peterson RN left; ntwx-ede-fkwvkt catheter system; 18 gauge; Present on admission PIV 06/25/22; 1046; great 06/25/22 1046 by saphenous vein (medial side of Mmae Peterson RN leg), right; srbg-nhx-fqbkze catheter system; Anatomical Landmarks; 18 gauge; Present [...] Procedure Summary Date: 06/25/22 Room / Location: [facility] ENDO 4 / [facility] ENDOSCOPY Anesthesia Start: 1101 Anesthesia Stop: 1202 Procedures: EGD, UPPER GI ENDOSCOPY (N/A Trunk) COLONOSCOPY; W CONTROL OF BLEEDING, ANY METHOD (N/A Trunk) SMALL BOWEL ENTEROSCOPY (N/A Trunk) Diagnosis: (melena +./-) Surgeons: Giovani Ponce MD Responsible Provider: Abby Alfaro MD Anesthesia Type: MAC ASA Status: 3 All Anesthesia Providers: Anesthesiologist: Abby Alfaro MD [employer]: David Gill CRNA Vitals Value Taken Time BP 102/85 06/25/22 1240 Temp Pulse Resp 16 06/25/22 1220 SpO2 95 % 06/25/22 1245 Pain Level 0 06/25/22 1220 Vitals shown include unvalidated device data. Patient Location: PACU/[facility] Level of Consciousness: Awake and Alert [...] Date Noted ??? Coronary artery disease involving [place] coronary artery of [place] heart without angina [id number]/04/2022 ??? HFrEF (heart failure with reduced ejection [...] IR Biopsy Spine 07/20/2019 Abby Marshall MD [facility] INTERVENTIONL RAD ??? IR VERTEBROPLASTY LUMBAR MULTIPLE LEVELS 07/20/2019 IR Vertebroplasty Lumbar Multiple Levels 07/20/2019 Abby Marshall MD [facility] INTERVENTIONL RAD ??? IR VERTEBROPLASTY THORACIC SINGLE LEVEL 10/25/2020 IR Vertebroplasty Thoracic Single Level 10/25/2020 Matt Chisholm MD [facility] INTERVENTIONL RAD ??? PRO EMBLC/THRMBC FEMORAL POPLITEAL AORTO-ILIAC ARTERY Left 05/15/2022 EMBOLECTOMY OR THROMBECTOMY, FEMOROPOPLITEAL, AORTOILIAC ARTERY BY LEG INCISION (WRVU 19.48) performed by Fito Summers MD at [facility] MAIN OR ??? PRO UPPER GI ENDOSCOPY, CTRL BLEED 05/31/2022 EGD, W CONTROL OF BLEEDING, ANY METHOD performed by Giovani Ponce MD at [facility] ENDOSCOPY ??? PRO UPPER GI ENDOSCOPY, DIAGNOSTIC N/A 05/31/2022 EGD, UPPER GI ENDOSCOPY performed by Giovani Ponce MD at [facility] ENDOSCOPY Social History Tobacco Use ??? [...] risks discussed with patient. Plan discussed with LAB[employer]. Anesthesia Screening documented in this encounter Plan of Treatment Upcoming Encounters Date Type Specialty Care Team Description 08/08/2022 Office Visit Gastroenterology Negra Collins MD [facility] GASTROENTEROLOGY DEPT [place], [place] [address] (Wo rk) 09/05/2022 Appointment Cardiology Trinity Reid MD [facility] CARDIOLOGY [place], [place] [address] (Wo rk) 09/05/2022 Office Visit Cardiology Trinity Redi MD [facility] CARDIOLOGY [place], [place] [address] (Wo rk) documented as of [...] mg documented in this encounter Care Teams Field Irrigation Worker Relationship Specialty Start Date End Date Abby Das MD PCP - General 10/02/[address] [place] [address] [place] [phone] documented as of this encounter
--- OUTSIDE RECORDS SUMMARY | 2022-07-17 10:36 | XMS_ITS | Clinical Summary ---
:1940 Author Organization [facility] [place] [address] Care Team Providers Name Role Phone Bobby [...] 04/12/2021 Active (FLONASE) 50 mcg/actuation Each Nare Dickinson, Suspension route daily as needed. 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 Permanent atrial fibrillation 06/13/2022 Last Assessment & [...] consideration of AV no de ablation and MANAGER DIVERSITY-D Limb ischemia 05/15/2022 History of basal cell carcinoma 05/31/2014 Basal cell carcinoma 03/29/2014 Verruca vulgaris 03/29/2014 AK (actinic keratosis) 03/29/2014 GIB (gastrointestinal bleeding) 06/28/2011 Overview: Secondary to 3-4 ASA/day, required admis lynette and blood transfusion MVP (mitral valve prolapse) s/p repair 06/28/2011 Overview: Surgery done at [facility] in 2 001 Hypertriglyceridemia 06/28/2011 Adhesive [...] Hicks MD Coronary priscilla ry disease involving manzanita coronary artery of manzanita heart without angina pectoris 06/19/2022 Telephone Cardiology Kourtney Jimenez RN 06/17/2022 Orders Only Dermatology Loretta Cohen Basal cell c carlos Paez MD (BCC) of right forehead 06/13/2022 Office Visit Cardiology Jeanette, Coronary artery disease involving manzanita coronary artery of manzanita heart without angina pectoris; Alan Hicks MD [...] Gastroenterology Elmer Johnson MD Drost, Alexander J, COUNTER MANAGER 05/31/2022 Surgery Gastroenterology Giovani Ponce UPPE R GI M, MD ENDOSCOPY 05/31/2022 - Hospital Encounter Dominique Hinds GIB (g astrointestinal 06/02/2022 MD bleeding) (Primary Dx) Mahendra Victor MD Friedman, Harley P, MD Ratanamaneechat, Suphagaphan, MD 05/31/2022 Office Visit Vascular Surgery DavinaStephanie bellamyy Dizzy; B, 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 Atrial fibrilla tion, unspecified type; SOB (shortness of breath) 05/28/2022 Telephone Vascular Surgery Dominique Bolivar RN 05/24/2022 Telephone Cardiology Kourtney Jimenez RN 05/21/2022 Hospital Encounter Cardiology Paroxysma l atrial fibrillation 05/20/2022 Surgery Cardiology Abundio Servin MD CATHETERIZATION 05/15/2022 Anesthesia Event Surgery Cari Hernandez MD Patel, Shreena K, COUNTER MANAGER 05/15/2022 Surgery Surgery Fito Summers EMBOLECTOMY O [...] MD [facility] GASTROENTEROLOGY DEPT [place], [place] [address] (Wo rk) 09/05/2022 Appointment Cardiology Trinity Reid MD [facility] CARDIOLOGY [place], [place] [address] (Wo rk) 09/05/2022 Office Visit Cardiology Trinity Reid MD [facility]ARDIOLOG[facility] [place], [place] [address] (Wo rk) Health Maintenance Due [...] Component Value Ref Test Analysis Performed At [facility] Range Method Time Signature UPPER GI [facility] PROVATION ENDOSCOPY Endoscopy Procedure Date: 06/25/2022 10:33 AM ? Patient Name: Koko Bah ? Date of : 1940 ? Age: 81 ? Order #: [id number] ? Instrument Name: [id number] ? Procedure: ? Upper GI endoscopy Indications: [...] Value Ref Test Analysis Performed At [facility] Method Time Signature COLONOSCOPY [facility] PROVATION Endoscopy Procedure Date: 06/25/2022 10:33 AM ? Patient Name: Koko Bah ? Date of : 1940 ? Age: 81 ? Order #: [id number] ? Instrument Name: [id number]- [id number] ? Procedure: ? Colonoscopy Indications: ? Gastrointestinal [...] Procedure Code(s): ? --- Professional --- ? 39081, Colonoscopy, flexib le; with ? control of [...] of sigmoid ? colon CPT copyright 2020 [employer]. All rights reserved. The codes documented in this report are preliminary and upon front line supervisor review may be revised to meet current [...] Component Value Ref Test Analysis Performed At [facility] Range Method Time Signature VB Text Department: Vascular Surgery Lab VASCUBASE Report Patient: [id number] (KOKO BAH) CPT: 18714 Referring Physician: FITO SUMMERS ?? Phone: Indications: s/p L EMERGENCY MEDICAL DISPATCHER endart. Diabetes mellitus: no Findings: Right [...] Summers MD VASCULAR ORDERABLES Performing Organization Address City/[facility]/ZIP Code Phon e Number VASCUBASE Specimen to Pathology (06/10/2022 1:20 PM EDT) Specimen Anatomical Collection Method Collection Time Receive d Time (Source) Location / / Volume Laterality AP Specimen 06/10/2022 1:20 PM 1:20 EDT PM EDT Narrative [facility] - 06/10/2022 1:20 PM EDT Specimen requisition ordered. ??Separate Pathology report to follow Loretta Cohen MD PATHOLOGY/CYTOLOGY ORDERABLE S Performing Organization Address [facility] [place] [address] [facility] [address] Surgical Pathology Report (06/10/2022 11:43 AM EDT) Component Value Ref Test Analysis Performed At [facility] Range Method Time Signature Surgical [id number] ? Location: [facility] Report The signing pathologist has (i) examined the relevant preparation(s) for the [facility] specimen(s) and (ii) rendered or confirmed the diagnosis(es) . HOSPITAL LABORATORY . ?Surgic al Pathology DIAGNOSIS Right lateral eyebrow, skin shave biopsy: - ??Basal cell carcinoma, no dular pattern, transected at the peripheral and deep specimen edges Electronically signed by: ?Delroy CARCAMO, PhD, Ian Verified: ??06/12/2022 14:33 ??Dermatopathologist Performed at: ??-[facility] Dept. of Pathology, [place], [place] SPECIMEN(S) SUBMITTED A - right lateral [...] City/State/ZIP Code Phon e Number [place] [id number] (ABNORMAL) Hemogram (06/02/2022 8:20 AM EDT)Only the most recent of14 results within the time period is included. Analysis Performed At Patho logist Time Signature WBC 7.2 4.0 - 9.5 [facility] XIAO x10(3)/[facility] LABORATORY RBC 2.74 (L) 4.58 - [facility] XIAO 5.54 [facility] x10(6)/[facility] LABORATORY Hemoglobin 8.7 (L) 13.7 - [place] 16.5 g/dL [facility] LABORATORY Hematocrit 25.7 (L) 40.5 - [facility] XIAO 48.5 % [facility]ORY MCV 93.8 (H) 82.9 - [place] 93.1 [facility] LABORATORY MCH 31.8 27.5 - [facility] 32.1 pg [facility] MCHC 33.9 32.0 - [place] 35.7 g/dL [facility]ORY Platelets 260 145 - 357 [place] x10(3)/[facility] LABORATORY RDWSD 51.0 (H) 36.0 - [place] 45.0 [facility] LABORATORY RDWCV 14.9 (H) 11.4 - [place] 13.8 % [facility] LABORATORY MPV 10.0 7.6 - 12.9 [facility] nRBC % Auto 0.0 % [facility] nRBC Abs Auto 0.000 0.000 - [facility] 0.000 [facility] x10(3)[facility] LABORATORY Specimen Anatomical Collection Method Collection Time Receive d Time (Source) Location / / Volume Laterality Blood 06/02/2022 8:20 AM 8:25 EDT AM EDT Resulting Agency Comment Spec In Lab Kurt Ames MD HEMATOLOGY ORDERABLES Performing Organization Address City/State/[place] [address] (ABNORMAL) Differential, Automated (06/02/2022 8:20 AM EDT)Only the most recent of14 resultswithin the time period is included. P athologist Signature Neutrophils % 61.3 % [facility] Neutr Abs (ANC) 4.44 1.70 - [facility] 6.10 [facility] x10(3)[facility] LABORATORY Lymphocytes % 25.2 % [facility] Lymphocytes Abs 1.8 0.9 - 3.2 [facility] x10(3)[facility] LABORATORY Monocytes % 10.0 % [facility] Monocyte Abs 0.7 0.3 - 0.9 [facility] x10(3)[facility] LABORATORY Eosinophils % 2.1 % [facility] Eosinophils Abs 0.2 0.0 - 0.4 [facility] x10(3)[facility] LABORATORY Basophils % 0.7 % [facility] Basophils Abs 0.0 0.0 - 0.1 [facility] x10(3)[facility] LABORATORY Immature Gran % 0.70 % [...] Abs 0.05 (H) 0.00 - 0.04 x10(3)/mcL [facility] Specimen Anatomical Collection Method Collection Time Receive d Time (Source) Location / / Volume Laterality Blood 06/02/2022 8:20 AM 2 8:25 EDT AM EDT Resulting Agency Comment Spec In Lab Kurt Ames MD HEMATOLOGY ORDERABLES Performing Organization Address City/State/ZIP Code Phon e Number [address] Heparin (unfractionated) Level (06/02/2022 6:30 AM EDT)Only the most recent of11 resultswithin the time period is included. athologist Signature Heparin UFH 0.39 IU/mL [facility] LABORATORY Comment: Heparin (anti-Xa) levels [...] Address City/State/ZIP Code Phon e Number [address] Magnesium (06/02/2022 12:30 AM EDT)Only the most recent of5 resultswithin the time period is included. athologist Signature Magnesium 0.83 0.69 - 1.07 [facility] mmol/L [facility] LABORATORY Specimen Anatomical Collection Method Collection Time Receive d Time (Source) Location / / Volume Laterality Blood 06/02/2022 12:30 06/02/2022 AM EDT 12:40 AM EDT Resulting Agency Comment Spec In Lab Mahendra Victor MD CHEMISTRY ORDERABLES Performing Organization Address City/State/[place] [address] (ABNORMAL) Basic Metabolic Panel (non-fasting) (06/02/2022 12:30 AM EDT)Only the most recent of6 resultswithin the time period is included. athologist Signature Glucose Lvl 151 65 - 199 [facility] mg/dL [facility]ORY Comment: Diabetes: >=200 mg/dL plus symp toms BUN 12 10 - 20 mg/dL [facility] LABORATORY Creatinine 0.71 (L) 0.80 - 1.50 mg/dL [facility] LABOR[facility]ORY Sodium 142 135 - 145 mmol/L [facility]ORY Potassium 3.8 3.5 - 5.0 mmol/L [facility] Comment: Please note: ??Patients [...] 15 mmol/L [facility] LABORATORY Calcium 8.1 (L) 8.5 - 10.5 mg/dL [facility] LABOR[facility]ORY Estimated GFR 93 >=60 [...] Organization Address City/State/[place] [address] SCAN DOC: TELEMETRY STRIPS (06/01/2022 8:37 PM EDT)Only the most recent of8 resultswithin the time period is included. Narrative This result has an attachment that is no t available. Unknown MEDIA MGR SCAN EXT ORDR/RSLT (ABNORMAL) Urinalysis with reflex Culture (06/01/2022 4:00 AM EDT)Only the most recent of2 resultswithin the time period is included. [facility] gist Method Time Signature Glucose UA 500 Negative [facility] (Critical) mg/dL [facility] LAB[facility]ORY Comment: Urinalysis result NOT critical without a combination of Glucose greater than or equal to 500 mg/dL AND Ketones greate r than or equal to 80 mg/dL Protein UA Negative Negative mg/dL [facility] Bilirubin UA Negative Negative mg/dL [facility] LAB[facility]ORY Comment: Clinical correlation [...] [facility] Blood UA Negative Negative mg/dL [facility] Ketones UA Negative Negative mg/dL [facility] Nitrite UA Negative Negative [facility] Leukocytes UA Negative Negative mcL [facility] LABORATORY Appearance UA Clear Clear [facility] LABORATORY Spec [place] UA >=1.030 (A) 1.005 - 1.030 [facility] LABORATORY Color UA Yellow Yellow [facility] LABORATORY Culture Reflexed No [facility] LABOR[facility]ORY Specimen Anatomical Collection Method Collection Time Receive d Time (Source) Location / / Volume Laterality Clean Catch 06/01/2022 4:00 AM 4:26 Urine EDT AM EDT Resulting Agency Comment Spec In Lab Mahendra Victor MD URINE ORDERABLES Performing Organization Address City/State/[place] [address] Transfuse RBC (05/31/2022 7:36 PM EDT) Dominique Hinds MD NURSING TREATMENT ORDERABLES - BLOOD ADMIN UPPER GI ENDOSCOPY (05/31/2022 3:37 PM EDT) Component Value Ref Test Analysis Performed At [facility] Range Method Time Signature UPPER GI [facility] PROVATION ENDOSCOPY Endoscopy Procedure Date: 05/31/2022 3:37 PM ? Patient Name: Koko Bah ? Date of : 1940 ? Age: 81 ? Order #: [id number] ? Instrument Name: [id number] ? Procedure: ? Upper GI endoscopy Indications: [...] Endoscope w as ? introduced through the [facility], and ? advanced to the [...] Procedure Code(s): ? --- Professional --- ? 25024, Esophagogastroduode noscopy, ? flexible, transoral; with control [...] stomach ? and duodenum CPT copyright 2020 [employer]. All rights reserved. The codes documented in this report are preliminary and upon front line supervisor review may be revised to meet current [...] who have questions please contact the health managed care liaison that requested your imaging first. ? Narrative 05/31/2022 2:39 PM EDT EXAMINATION: CT ABDOMEN AND PELVIS [facility] CONTRAST (GI BLEED) CLINICAL HISTORY: Significant Hb drop. U nknown source. has had a [facility] with stent placed and revascularization of [...] enlarged lymph nodes. Vasculature: Patent common iliac, rod puller al iliac, and common femoral arteries bilaterally. [...] the original. EXAMINATION: CT ABDOMEN AND PELVIS [facility] (GI BLEED) CLINICAL HISTORY: Significant Hb [...] enlarged lymph nodes. Vasculature: Patent common iliac, rod puller al iliac, and common femoral arteries bilaterally. [...] ho have questions please contact the health managed care liaison that requested your imaging first. Dominique Hinds MD IMG CT ORDERABLES Type and Screen Validity (05/31/2022 1:43 PM EDT)Only the most recent of2 resultswithin the time period is included. [facility] Method Time Signature T&S only valid [place] [...] Organization Address City/State/[place] [address] ABORH Recheck Status (05/31/2022 1:43 PM EDT)Only the most recent of2 results within the time period is included. [facility] Method Time Signature ABORH Type Completed [facility] LABORATORY Specimen Anatomical Collection Method Collection Time Receive d Time (Source) Location / / Volume Laterality Blood 05/31/2022 1:43 PM 2 1:57 EDT PM EDT Resulting Agency Comment Spec In Lab Dominique Hinds MD BLOOD BANK ORDERABLES Performing Organization Address City/[facility]/[place] [address] ABO/Rh Typing (05/31/2022 1:43 [...] MD BLOOD BANK ORDERABLES Performing Organization Address [facility]/[place] [address] Antibody screen (05/31/2022 1:43 PM EDT)Only the most recent of2 resultswithin the time period is included. Patholo gist Method Time Signature Ab Screen Negative [facility] LABORATORY Expires at 06/03/2022 [facility] [id number] on: [facility] LABORATORY Specimen Anatomical Collection Method Collection Time Receive d Time (Source) Location / / Volume Laterality Blood 05/31/2022 1:43 PM 2 1:57 EDT PM EDT Resulting Agency Comment Spec In Lab Dominique Hinds MD BLOOD BANK ORDERABLES Performing Organization Address City/[facility]/ZIP Code Phon e Number [address] Prepare RBC (05/31/2022 1:35 PM EDT)Only the most recent of2 resultswithin the time period is included. P athologist Signature Dispensed? Yes [facility] LABOR[facility]ORY Specimen Anatomical Collection Method Collection Time Receive d Time (Source) Location / / Volume Laterality Blood 05/31/2022 1:35 PM 2 1:30 EDT PM EDT Dominique Hinds MD BLOOD BANK ORDERABLES Performing Organization Address City/State/[place] [address] (ABNORMAL) BLOOD GAS 2 VENOUS (05/31/2022 11:24 AM EDT) P athologist Signature pH [place] 7.38 7.32 - [facility] 7.42 [facility] LABORATORY pCO2 [place] 40 (L) 41 - 51 [facility] LABORATORY pO2 [place] 18 (L) 25 - 40 [facility] LABORATORY HCO3 [place] 23.3 mmol/L [facility] BE Marco Antonio -1.8 mmol/L [facility] Hgb Blood Gas 7.0 (L) 13.7 - [facility] 16.5 g/dL [facility] LABORATORY O2HB [place] 24.3 % [facility] COHB [place] 1.4 % [facility] Comment: Nonsmokers: 0.5-1.5% COHB Smokers: Variable, but usually less than 10% Toxic: 20-30% COHB Lethal: Greater than 60% COHB METHB [place] 1.7 (H) <=1.5 % [facility] LABORATORY Na Whole Blood 137 135 - 145 mmol/L [facility] LABORATORY K Whole Blood 3.9 [...] Lactate WB 1.4 0.5 - 2.2 mmol/L [facility] LABORATORY BGas Source Venous [facility] LABORATORY Specimen Anatomical Collection Method Collection Time Receive d Time (Source) Location / / Volume Laterality Blood 05/31/2022 11:24 05/31/2022 AM EDT 11:24 AM EDT Dominique Hinds MD CHEMISTRY ORDERABLES Performing Organization Address City/[facility]/ZIP Code Phon e Number [address] TSH Calvert (05/31/2022 11:20 AM EDT) P athologist Signature TSH 1.67 0.27 - 4.20 [facility] mcIU/mL [facility] LABORATORY Comment: Reference Interval (mcIU/mL): Females: ??First Trimester: 0.23-3.88 ??Second Trimester: 0.22-3.90 ??Third Trimester: 0.44-4.66 Specimen Anatomical Collection Method Collection Time Receive d Time (Source) Location / / Volume Laterality Blood 05/31/2022 11:20 05/31/2022 AM EDT 11:28 AM EDT Resulting Agency Comment Spec In Lab Dominique Hinds MD CHEMISTRY ORDERABLES Performing Organization Address City/[facility]/ZIP Code Phon e Number [address] XR Chest PA & [...] who have questions please contact the health managed care liaison that requested your imaging first. ? Narrative [...] ho have questions please contact the health managed care liaison that requested your imaging first. Dominique Hinds MD IMG DX ORDERABLES Blue Tube HOLD (05/31/2022 10:50 AM EDT) athologist Signature Blue Hold Sample in [facility] lab. [facility] LABORATORY Specimen Anatomical Collection Method Collection Time Receive d Time (Source) Location / / Volume Laterality Blood Venous Draw / 05/31/2022 10:50 05/31/2022 Unknown AM EDT 11:05 AM EDT Brittany Ramirez MD HEMATOLOGY ORDERABLES Performing Organization Address City/State/[place] [address] Troponin (05/31/2022 10:50 AM EDT) athologist Signature Troponin-T <0.01 0.00 - 0.00 [facility] ng/mL [facility] LABORATORY Comment: The 99th percentile for [...] additional sample may be indicated. Reference: Third Shepherd Definition of Myocardial Infarction. Journal of the [place] 2012;60:1581-98 Specimen Anatomical Collection Method Collection Time Receive d Time (Source) Location / / Volume Laterality Blood 05/31/2022 10:50 05/31/2022 AM EDT 11:03 AM EDT Resulting Agency Comment Spec In Lab Dominique Hinds MD CHEMISTRY ORDERABLES Performing Organization Address City/State/ZIP Code Phon e Number [address] Phosphorus (05/31/2022 10:50 AM EDT)Only the most recent of2 resultswithin the time period is included. P athologist Signature Phosphorus 3.2 2.5 - 4.5 [place] mg/dL [facility] LABORATORY Specimen Anatomical Collection Method Collection Time Receive d Time (Source) Location / / Volume Laterality Blood 05/31/2022 10:50 05/31/2022 AM EDT 11:03 AM EDT Resulting Agency Comment Spec In Lab Dominique Hinds MD CHEMISTRY ORDERABLES Performing Organization Address City/[facility]/ZIP Code Phon e Number [address] (ABNORMAL) pro-Brain Natriuretic Peptide (05/31/2022 10:50 AM EDT) P athologist Signature ProBNP 1,077 (H) <=449 [place] pg/mL [facility] LABORATORY Specimen Anatomical Collection Method Collection Time Receive d Time (Source) Location / / Volume Laterality Blood 05/31/2022 10:50 05/31/2022 AM EDT 11:03 AM EDT Resulting Agency Comment Spec In Lab Dominique Hinds MD CHEMISTRY ORDERABLES Performing Organization Address City/[facility]/ZIP Code Phon e Number [address] Lipase (05/31/2022 10:50 AM EDT) P athologist Signature Lipase 41 0 - 60 [place] unit/L [facility] LABORATORY Specimen Anatomical Collection Method Collection Time Receive d Time (Source) Location / / Volume Laterality Blood Venous Draw / 05/31/2022 10:50 05/31/2022 Unknown AM EDT 11:11 AM EDT Resulting Agency Comment Spec In Lab Zain Champion MD CHEMISTRY ORDERABLES Performing Organization Address City/[facility]/[place] [address] (ABNORMAL) Hepatic Function Panel (05/31/2022 10:50 AM EDT) Analysis Performed At Patho logist Time Signature Total Protein 6.4 6.1 - 8.0 [place] g/dL [facility]ORY Albumin 4.1 3.2 - 5.2 [place] g/dL [facility] LABORATORY AST 24 0 - 39 [facility] XIAO unit/L [facility] LABOR[facility]ORY ALT 44 0 - 55 [facility] XIAO unit/L [facility]ORY Alk Phos 63 40 - 130 [facility] unit/L [facility]ATORY Total <0.2 (L) 0.2 - 1.3 [place] Bilirubin mg/dL [facility] LABORATORY Bili, Direct 0.1 0.0 - 0.3 [facility] XIAO mg/dL [facility] LABORATORY Specimen Anatomical Collection Method Collection Time Receive d Time (Source) Location / / Volume Laterality Blood Venous Draw / 05/31/2022 10:50 05/31/2022 Unknown AM EDT 11:11 AM EDT Resulting Agency Comment Spec In Lab Zain Champion MD CHEMISTRY ORDERABLES Performing Organization Address City/[facility]/[place] [address] EKG 12 Lead (05/31/2022 10:11 AM EDT)Only the most recent of3 resultswithin the time period is included. Component Value Ref Range Test Analysis Performed Pathologis t Method Time At Signature Ventricular rate 106 BPM MUSE SYSTEM QRS Duration 122 ms MUSE SYSTEM Q-T Interval 368 ms MUSE SYSTEM QTC Calculated 488 ms MUSE SYSTEM (Bezet) Calculated R Hewlett -43 degrees MUSE SYSTEM Calculated T Hewlett 109 degrees MUSE SYSTEM INTERPRETATION Atrial fibrillation with rapid ventricular response MUSE SYSTEM Left axis deviation Minimal voltage criteria for LVH, may be normal variant ( [place] product ) Cannot rule out Anterior infarct , age undetermined Abnormal ECG When compared with ECG of 20-MAY-2022 19:04, No significant change was found I personally reviewed the tracing and edited the fellows int erpretation Confirmed by fellow MD Mike, [place] ([id number]) on 022 8:36:21 PM Confirmed by MD [...] Laterality Volume Narrative 05/20/2022 7:09 PM EDT ?[facility] ? Cardiac Cathete rization/Intervention Report ? Patient Name: Koko Bah. ? Procedure Date: 05/20/2022 ? A #: [id number] ? Primary Physician: Malathi, Abundio S ? Case #: [id number] ? File Name: [id number] ? Catheterization Order Number: [id number] ? [facility] ? Final Report [place], [place] ? Patient Name: ? Koko J. Klarissa uson ? ID#: ?[id number] ? : ?1940 ? Procedure Date: ? May 20, 2022 ?Case #: ? Room: ? 1 ? Case Physician: ? Abundio roldan M.D. ? Start: ?17:16 ? Admission: ??05/15/2022 ? Referring Physician: ??Julee Malik ?Discharge: ??05/21/2022 ? Procedures: ?* Coronary Angiography ?* Left [...] was Urgent. The indication for ?the laborer operator visit is cardiomyo nita. Chest pain symptom [...] ?3.5 guiding catheter and a 3.5 Fr [facility] [address] ??20 Mhz. ??Imaging ?was successful. ??Image [...] premounted 2. 75 x 30 mm Rudy [place] (AMPARO) was deployed ? with a maximum [...] may require ?modification of this regimen. [facility] Interventional Cardiology for ?questions. ?The 1 year [...] M.D. ? Report Finalized: 05/20/2022 ??19:01 ? Report Last Ammended: 07/12/2022 ??10:16 ? Procedure Note Abundio Servin MD - 07/12/2022Format ting of this note might be different from the original. [facility] Cardiac Catheterization/Intervention Re port Patient Name: Koko Bah Procedure Date: 05/20/2022 A #: [id number] Primary Physician: Abundio Servin Case #: File Name: [id number] Catheterization Order Number: [id number] [facility] Final Report [place], [place] Patient Name: Koko Bah ID#: [id number] : 1940 Procedure Date: May 20, 2022 Case #: Room: 1 Case Physician: Fabienne Boswell tart: 17:16 Admission: 05/15/2022 Referring Physician: Julee Cruz Discharge: 05/21/2022 Procedures: * Coronary Angiography * Left Heart Catheterization * Coronary Ultrasound * Coronary Angioplasty * Coronary Stent Insertion History Koko Bah is a 81 year old man . He has hypertension. The patient's smoking status is Current wit h Current - Some Days frequency, using cigarettes. He has hypercholester olemia managed with lipid therapy. The patient has a history of an ejectio n fraction less than or equal to 35% and right ventricular failure. He h as a history of CHF. The CHF is NYHA Functional Class III, is newly umu gnosed and is classified as Systolic. He has a history of a mitral valve repair. The patient has a calcified ascending aorta. He also has a history of peripheral vascular disease with critical limb ischemia. Pr ior to the initiation of this procedure, the patient was designated a s ASA Class IV. The [facility] clinical frailty scale is 3: Managing Well. Diagnostic Tests: Prior Coronary Angiography: Prior coronary angiography was performe d on 11/10/2000 and showed non-obstructive CAD. LV ejection fracti on within 6 months is 28%. Electrocardiography: EKG was assessed by ECG. EKG was Abnorm al. EKG showed new onset atrial fibrillation with heart rate 130 . Medications Prior to Procedure: Angiotensin II Receptor Norma, Beta B locker and Statin. Indications for Diagnostic Cath: The priority of the diagnostic procedur e was Urgent. The indication for the laborer operator visit is cardiomyopathy. C hest pain symptom assessment was: Typical Angina. Technique: A 6 SLFr sheath was inserted in the rig ht radial artery utilizing the Seldinger technique. The left coronary artery was injected utilizing a 4Fr TIG 4.0 catheter. A 4Fr TIG 4.0 cat heter was used to inject the right coronary artery. Left ventricular press ure was performed utilizing a 4Fr TIG 4.0 catheter. Coronary angioplasty and coronary stent insertion were performed and the equipment utilized wi ll be described in the intervention summary section. 4,500 uni ts of heparin were administered. A total of 250cc of Iso-Ilda were opened, 189cc of Iso-Ilda were administered and 61cc of Iso-Ilda were wasted. Radiat ion: Fluoro time was 14.1 minutes, dose area product was 44,500 mGYcm2 and air kerma was 752 mGY. See the case log for additional details. The patient received the following medi cations prior to and during the procedure: Unfractionated Heparin and Clopidogrel. Hemodynamics: Left Heart Pressures Resting: Syst Diast EDP a v m Ao 83 47 59 LV 90 5 Coronary Angiography: Dominance: Right Left Main There was mild diffuse (<=25% stenosis) disease of the entire vessel segment of the left main artery. Left Anterior Descending There was a 25% diffuse stenosis of the proximal segment of the left anterior descending artery (LAD). Left Circumflex There was a 70% stenosis of the mid seg ment of the left circumflex artery (LCX). There was a 90% diffuse stenosis of the ostial segment of the first obtuse marginal branch (OM1) of the LCX . Distal flow was decreased (ALE Grade 1). Right Coronary Artery There was a 45% stenosis of the mid seg ment of the right coronary artery (RCA). The distal segment of the RCA had 90% stenosis. Ramus There was mild diffuse (<=25% stenosis) disease of the entire vessel segment of the ramus. Intravascular Imaging/Physiology: Intravascular Ultrasound was performed in the ostial OM1 using a 6 Fr EBU 3.5 guiding catheter and a 3.[address] [facility] 20 Mhz. Imaging was successful. Image quality was excel lent. The ostial OM1 showed moderate diffuse atherosclerotic plaque . Post Intervention: The stent was well e xpanded and apposed. Indication for Intervention: Coronary intervention was indicated for primary therapy for an acute myocardial infarction. The priority for the procedure was Urgent. The NCDR indication for the procedure was N SILVIA-ACS. LVEF within one week was 28%. Syntax Score was Low. Initial PCI was performed for multivessel disease. Intervention Summary: Left Circumflex Artery Mid 70% Angioplasty was performed on the 70% st enosis in the mid segment of the LCX. This was a de segun lesion. According to the ACC/AHA classification system, this lesion was a type B1 moderate risk lesion. A guidewire was p laced across this lesion. Vessel flow pre intervention wa s ALE 3. Lesion length was 10mm. Angioplasty was accomplished through a 6 Fr EBU 3.5 guide utilizing an EUPHORA 12 MM balloon with a maximum size of 2.50mm and a maximum inflation pressure of 12 atmospheres. The final outcome was defined as succes sful. The residual stenosis following this intervention wa s 15%. The final ALE flow was 3. First Obtuse Marginal Branch of the LCX Ostial 90% Stent insertion was performed on the 90 % stenosis in the ostial segment of the OM1. This was a d e segun lesion. This lesion was designated a type C high ris k lesion based on ACC/AHA classification system. Primary prevention of restenosis was the indication for stent insertion. This was the culprit lesion. A guidewire was sarai geovanni across this lesion. Vessel flow pre intervention was ALE 1 . Lesion length was 25mm. The lesion involves a bifurcation with the LCX. This bifurcation lesion was treated with a s alirio stent, side branch dilated post stent technique and a final kissing balloon post-dilation. Stent insertion was accomplished throug h a 6 Fr. EBU 3.5 guide. The lesion was predilated with a 2.00mm EUPHORA 15 MM balloon with a maximum inflation pressu re of 12 atmospheres. A premounted 2.75 x 30 mm [place] (AMPARO) was deployed with a maximum inflation pressure of 12 atmospheres. Following stent deployment, the lesion was dilated using a 3.50mm NC EUPHORA 08 MM balloon with a maximum inflation pressure of 9 atmospheres. The final outcome was defined as succes sful. A coronary arteriolar vasodilator was administered as part of the intervention on this lesion. There was no residual stenosis following this intervention. The final ALE flow was 3. Vascular Access: Vascular Access Management: Mechanical Compression of the right rad ial artery access site was performed. Dual Antiplatelet (DAPT) Recommendations : Drug eluting stent (AMPARO) inserted. P2Y12 Loading dose Clopidogrel 600 mg P O given in lab. Recommended anti-platelet/anti-thrombot ic regimen: Start aspirin 81 mg daily now and lisandro nue for 7 days then stop. Restart aspirin 81 mg daily in 12 months and co ntinue unless contraindicated. Start clopidogrel 75 mg daily now and c ontinue for 12 months then stop. Start apixaban 5 mg twice daily now and continue for indefinitely. These recommendations are made at the t michael of the intervention. Patient and provider preferences or a changing clinical situation may require modification of this regimen. Consult D [facility] [place] [place] Interventional Cardiology for questions. The 1 year bleeding risk as calculated by the PRECISE DAPT score is Moderate risk. Conclusions: * Two vessel coronary artery disease (L CX and RCA) * Successful stent insertion of the ost ial OM1 lesion * Successful angioplasty of the mid LCX lesion * See Dual Antiplatelet (DAPT) Recommen dations above * COnsider PCI of distal RCA if indicat ed. Complications/Events: The patient had no complications during these procedures. The attending physician was present for the entire procedure. Dr. Abundio Servin M.D. was present during the moderate sedation intraservice time as documented by the sedation nurse. Case time = 01:19. Dr. Abundio Servin M.D. performed th e coronary angiography, left heart catheterization, IVUS # coronary, angio plasty-coronary and stent insertion-coronary. Abundio Servin M.D. Electronically Signed by: Abundio ruiz M.D. Report Finalized: 05/20/2022 19:01 Report Last Ammended: 07/12/2022 10:16 Abundio Servin MD CARDIAC CATH ORDERABLES POCT Glucose (05/20/2022 5:42 PM EDT) athologist Signature POC Glucose 123 65 - 199 ILDA XIAO mg/dL [facility] Comment: Supplemental ranges: <140 mg/dL before meals <180 mg/dL all other times of the day Specimen Anatomical Collection Method Collection Time Receive d Time (Source) Location / / Volume Laterality Blood 05/20/2022 5:42 PM 2 5:42 EDT PM EDT Fito Summers MD POINT OF CARE TEST ORDERABLE S Performing Organization Address City/State/[place] [address] (ABNORMAL) BMP w/fasting Glucose (05/20/2022 10:50 AM EDT) P athologist Signature Glucose 152 (H) 65 - 99 [facility] Fasting mg/dL [facility] Comment: ?Fasting* Glucose Interpretive C [...] of Diabetes Mellitus, Position Statement from the [place] [employer]. ??Diabete s Care, Volume 33, Supplement 1, Nov 2009 BUN 11 10 - 20 mg/dL [facility] Creatinine 0.63 (L) 0.80 - 1.50 mg/dL [facility] Sodium 137 135 - 145 mmol/L [facility] Potassium 3.6 3.5 - 5.0 mmol/L [facility] Comment: Please note: ??Patients [...] LABORATORY Calcium 8.7 8.5 - 10.5 mg/dL [facility] Estimated GFR 97 >=60 [...] Summers MD CHEMISTRY ORDERABLES Performing Organization Address City/[facility]/ZIP Code Phon e Number [address] TSH (05/18/2022 8:00 PM EDT) P athologist Signature TSH 2.27 0.27 - 4.20 [facility] mcIU/mL [facility] Comment: Reference Interval (mcIU/mL): Females: ??First Trimester: 0.23-3.88 ??Second Trimester: 0.22-3.90 ??Third Trimester: 0.44-4.66 Specimen Anatomical Collection Method Collection Time Receive d Time (Source) Location / / Volume Laterality Blood 05/18/2022 8:00 PM 8:06 EDT PM EDT Resulting Agency Comment Spec In Lab Fito Summers MD CHEMISTRY ORDERABLES Performing Organization Address [facility]/ZIP [facility] [place] [address] (ABNORMAL) Urinalysis Microscopic Exam [...] Patiño MD URINE ORDERABLES Performing Organization Address City/[facility]/ZIP [facility] Phon e Number [address] XR Chest One View [...] who have questions please contact the health managed care liaison that requested your imaging first. ? Narrative [...] ho have questions please contact the health managed care liaison that requested your imaging first. Fito Summers [...] ? Medical Center ?[address] ? [place] [address] ?Voice: ?Fax: ? Echocardiogram Report Name: KOKO BAH ?Study Date: 05/16/2022 11:22 AM ? Patient Location: [address] [place], [place] [address] : 1940 ? Height: 67.5 in ? Account: [id number] Age: 81 yrs ? Weight: 176 lb Gender: Male ?BSA: 1.9 m2 Ordering Physician: FITO SUMMERS Referring Physician: MALI FLORIAN Performed By: Jolene Bernard RDCS Exam Location: [facility]. Interpretation Summary Left ventricle is [...] and LV systolic dysfunction are new. Procedure Complete-41280. Image enhancement Optiso n was used for [...] note might be different from the original. [facility] [address] [place] [address] Voice: Fax: Echocardiogram Report Name: KOKO BAH Study Date: 05/2022 11:22 AM Patient Location: [address] [place] [address] : 1940 Height: 67.5 in Account: [id number] Age: 81 yrs Weight: 176 lb Gender: Male BSA: 1.9 m2 Ordering Physician: FITO SUMMERS Referring Physician: MALI FLORIAN Performed By: Jolene Bernard [facility] Exam Location: [facility]. Interpretation Summary Left ventricle is [...] and LV systolic dysfunction are new. Procedure Complete-42900. Image enhancement Optiso n was used for [...] Signature pH Art 7.33 (L) 7.35 - [facility] 7.45 [facility] pCO2 Art 41 35 - 45 [facility] mmHg [facility] pO2 Art 131 (H) 85 - 104 [facility] HCO3 Art 21.1 20.0 - [facility] 26.0 [facility] mmol/L [facility] BE Art -4.8 (L) -3.0 - 3.0 [facility] mmol/L [facility] Hgb Blood Gas 13.4 (L) 13.7 - [facility] 16.5 g/dL [facility] O2HB Art 96.9 94.0 - [facility] 97.0 % [facility] COHB Art 1.4 % [facility] [...] Blood 113 (H) 98 - 107 mmol/L [facility] Gluc Whole Bld 136 [...] Organization Address City/State/[place] [address] (ABNORMAL) APTT (05/15/2022 12:30 [...] EDT Resulting Agency Comment Spec [facility] ORDERABLES Performing Organization Address City/[facility]/ZIP [facility] Phon e Number [address] (ABNORMAL) Prothrombin Time (05/15/2022 12:30 PM EDT) P athologist Signature PT 12.9 (H) 9.4 - 12.5 [facility] LABORATORY INR 1.1 [facility] [...] Resulting Agency Comment Spec In Lab [facility] H[facility] ORDERABLES Performing Organization Address City/[facility]/[place] [address] Gold Tube HOLD (05/15/2022 12:20 PM EDT) athologist Signature Gold Hold Sample in [facility]. [facility] Specimen Anatomical Collection Method Collection Time Receive d Time (Source) Location / / Volume Laterality Blood No Charge / 05/15/2022 12:20 05/15/2022 Unknown PM EDT 12:20 PM EDT Lc TRIPP CHEMISTRY ORDERABLES Performing Organization Address City/State/[place] [address] CK (05/15/2022 12:00 PM EDT) P athologist Signature CK, Total 87 0 - 200 [facility] unit/L [facility] Specimen Anatomical Collection Method Collection Time Receive d Time (Source) Location / / Volume Laterality Blood Venous Draw / 05/15/2022 12:00 05/15/2022 Unknown PM EDT 12:19 PM EDT Resulting Agency Comment Spec In Lab Fito Summers MD CHEMISTRY ORDERABLES Performing Organization Address City/[facility] [place] [address] Film Library- Storage Only CT Abdomen (05/15/2022 9:32 AM EDT) Specimen (Source) Anatomical Location Collection Method / Collectio n Time Received Time / Laterality Volume Narrative RAD - 05/15/2022 9:32 AM EDT This exam is auto-finalizing. It's purpo se is for storage only. Matt Branham MD [facility] FILM LIBRARY ORDERABLES Performing Organization Address [facility] Code Phon e Number [place], [place] Film Library- Storage Only DX Chest (05/15/2022 9:31 AM EDT) Specimen (Source) Anatomical Location Collection Method / Collectio n Time Received Time / Laterality Volume Narrative RAD - 05/15/2022 9:31 AM EDT This exam is auto-finalizing. It's purpo se is for storage only. Matt Branham MD IM FILM LIBRARY ORDERABLES Performing Organization Address City/[facility]/ZIP Code Phon e Number [place], [place] from Last 3 Months Insurance Payer Benefit Plan / Subscriber ID Effective Phone Address T ype Group Dates MEDICARE MEDICARE PART A [id number] 2007-Pres [id number] [facility] [place] [address] [facility] [id number] 2007-Pres [phone] [address] [facility] [address] [place] [address] Advance Directives Latest Code Status on File [...] capacity to make decision: Yes Care Teams Screed Operator Relationship Specialty Start Date End Date Bobby Das MD PCP - General 10/02/[address] [place] [address] [place] [phone]
--- OUTSIDE RECORDS SUMMARY | 2022-07-17 10:36 | XMS_ITS | Encounter Summary ---
:1940 [place] [address] Care Team Providers Name Role Phone Bobby Das MD Primary Care Provider Encounter Details Date Type Department Care Team Description 06/13/2022 Office Visit Vascular Surgery at [facility] Fito Summers MD Limb ischemia [facility] [phone] VASCULAR SURGERY [phone] [place] [id number] (Wo rk) Social History Tobacco Use Types [...] s/p repair Overview Note: Surgery done at [facility] in 2000 ??? Hypertriglyceridemia Overview Note: [...] ABIs. Fito Summers MD Vascular Surgery [facility] Emily Power CMA - 06/13/2022 8:00 AM EDT Handwashing performed, gloves on.As instructed by windy removed on LLE medial and lateral aspect, cleansed after staple remover, steri strips applied. Gloves off, handwashing performed. documented in this encounter Plan of Treatment Upcoming Encounters Date Type Specialty Care Team Description 08/08/2022 Office Visit Gastroenterology Negra Collins MD [facility] GASTROENTEROLOGY DEPT [place], [place] [address] (Wo rk) 09/05/2022 Appointment Cardiology Trinity Reid MD [facility] [address] [place], [place] [address] (Wo rk) 09/05/2022 Office Visit Cardiology Trinity Reid MD [facility] [address] [place], [place] [address] (Wo rk) documented as of this encounter Visit Diagnoses Diagnosis Limb ischemia Unspecified circulatory system disorder documented in this encounter Care Teams Horologist Relationship Specialty Start Date End Date Bobby Das MD PCP - General 10/02/[address] [place] [address] [place] [address] documented as of this encounter
--- OUTSIDE RECORDS SUMMARY | 2022-07-17 10:36 | XMS_ITS | Encounter Summary ---
:1940 Author Organization [facility] [place] [address] Care Team Providers Name Role Phone Bobby Das MD Primary Care Provider Encounter Details Date Type Department Care Team Description 06/25/2022 Hospital Encounter Gastroenterology at [facility] Giovani Ponce, [facility] [place] [address] [facility] [phone] [place] [address] Social History Tobacco Use Types Packs/Day [...] the day after the procedure, use an ibnc-uwv-osrtywd spray to numb your throat. Sucking on [...] occurs, please contact your Doctor. Please call [phone] before 8pm Mon-Fri with problems, questions or concerns. If you call after 8pm or on weekends, call the Hospital at [phone] and ask to speak to the Director Of Instrumental Music it consulting manager and the gasoline dragline operator will contact that person for you. When should you call for help? Call [phone] anytime you think you may need emergency [...] any problems. Where can you learn more? [facility] View your After Visit Summary and more online at [email or web address] If you would like to [...] cost to you. Content Version: 12.2 ?? 1224-0003 [employer]. Care instructions adapted under license by [facility]. If you have questions about a medical condition or this instruction, always ask your healthcare professional. [employer] disclaims any warranty or liability for your [...] occurs, please contact your Doctor. Please call [phone] before 8pm Mon-Fri with problems, questions or concerns. If you call after 8pm or on weekends, call the Hospital at [phone] and ask to speak to the Director Of Instrumental Music it consulting manager and the gasoline dragline operator will contact that person for you. When should you call for help? Call [phone] anytime you think you may need emergency [...] any problems. Where can you learn more? [facility] View your After Visit Summary and more online at [email or web address] If you would like to [...] cost to you. Content Version: 12.2 ?? 3177-1830 [employer]. Care instructions adapted under license by [facility]. If you have questions about a medical condition or this instruction, always ask your healthcare professional. [employer] disclaims any warranty or liability for [...] 21 (FLONASE) 50 mcg/actuation Nare route daily [place], Suspension as needed. fluorouraciL (EFUDEX) 5 % [...] ischemia I99.8 ??? Coronary artery disease involving [place] tribe coronary artery of [place] tribe heart without angina vvohpepxV09.10 ??? HFrEF (heart failure with reduced ejection [...] [facility] GASTROENTEROLOGY DEPT [place], [place] [address] (Wo rk) 09/05/2022 Appointment Cardiology Trinity Reid MD [facility] CARDIOLOGY [place], [place] [address] (Wo rk) 09/05/2022 Office Visit Cardiology Trinity Reid MD [facility] ER DR CARDIOLOGY [place] [address] (Wo rk) documented [...] Component Value Ref Test Analysis Performed At [facility] Range Method Time Signature UPPER GI [facility] ENDOSCOPY Endoscopy Procedure Date: 06/25/2022 10:33 AM ? Patient Name: Koko Zamora ? Date of : 1940 ? Age: 81 ? Order #: [id number] ? Instrument Name: EC-760P- [id number]-760CT- [id number] ? Procedure: ? Upper GI endoscopy Indications: ? Recent gastrointestinal bleeding Providers: ? Giovani Ponce, Isi puente, ? Brissa Vee RN, Juvenal ? Confalone Referring MD: ?[facility]: ? Propofol per Anesthesia Complications: [...] Endoscope w as ? introduced through the [facility], and ? advanced to the second [...] Component Value Ref Test Analysis Performed At [facility] Method Time Signature COLONOSCOPY [facility] Endoscopy Procedure Date: 06/25/2022 10:33 AM ? Patient Name: Koko Zamora ? Date of : 1940 ? Age: 81 ? Order #: [id number] ? Instrument Name: EC-760P- [id number] ? Procedure: ? Colonoscopy Indications: ? Gastrointestinal [...] Procedure Code(s): ? --- Professional --- ? 05971, Colonoscopy, flexib le; with ? control of [...] of sigmoid ? colon CPT copyright 202 [employer]. All rights reserved. The codes documented in this report are preliminary and upon physics department chair review may be revised to meet current [...] Procedure) documented in this encounter Care Teams Dimension Quarry Supervisor Relationship Specialty Start Date End Date Bobby Das MD PCP - General 10/02/[address] [place] [address] [place] [phone] documented as of this encounter
--- OUTSIDE RECORDS SUMMARY | 2022-07-17 10:36 | XMS_ITS | Encounter Summary ---
:1940 Author Organization [facility] [place] [address] Care Team Providers Name Role Phone Bobby Das MD Primary Care Provider Encounter Details Date Type Department Care Team Description 06/25/2022 Surgery G[place]enterology at [facility] Giovani Ponce, EGD, UPPER GI [facility] Bobby [place]ill[place] [address] [facility] [phone] [place], [place] [address] Social History Tobacco Use Types [...] the day after the procedure, use an gsti-pbu-vfimfxe spray to numb your throat. Sucking on [...] occurs, please contact your Doctor. Please call [phone] before 8pm Mon-Fri with problems, questions or concerns. If you call after 8pm or on weekends, call the Hospital at [phone] and ask to speak to the Torch Shearer monument carver and the radio control crane operator will contact that person for you. When should you call for help? Call [phone] anytime you think you may need emergency [...] any problems. Where can you learn more? [facility] View your After Visit Summary and more online at [email or web address] If you would like to provide feedback about your hospital experience, please call the Office of Patient and Family Relations at . If you have received this After Visit Summary in error, please immediately return it in person to the department, or notify the [facility] Privacy Office by calling toll free at between the hours of 8AM and 5PM to arrange for our retrieval of the documents at no cost to you. Content Version: 12.2 ?? 8601-1298 [employer]. Care instructions adapted under license by [facility]. If you have questions about a medical condition or this instruction, always ask your healthcare professional. [employer] disclaims any warranty or liability for [...] occurs, please contact your Doctor. Please call [phone] before 8pm Mon-Fri with problems, questions or concerns. If you call after 8pm or on weekends, call the Hospital at [phone] and ask to speak to the Torch Shearer monument carver and the radio control crane operator will contact that person for you. When should you call for help? Call [phone] anytime you think you may need emergency [...] any problems. Where can you learn more? [facility] View your After Visit Summary and more online at [email or web address] If you would like to provide feedback about your hospital experience, please call the Office of Patient and Family Relations at . If you have received this After Visit Summary in error, please immediately return it in person to the department, or notify the [facility] Privacy Office by calling toll free at between the hours of 8AM and 5PM to arrange for our retrieval of the documents at no cost to you. Content Version: 12.2 ?? 5292-3094 [employer]. Care instructions adapted under license by [facility]. If you have questions about a medical condition or this instruction, always ask your healthcare professional. [employer], [employer] disclaims any warranty or liability for your [...] 21 (FLONASE) 50 mcg/actuation Nare route daily [place], Suspension as needed. fluorouraciL (EFUDEX) 5 % [...] ischemia I99.8 ??? Coronary artery disease involving chipeww[place] coronary artery of ch[place] heart without angina dgesbenfW47.10 ??? HFrEF (heart failure with reduced ejection [...] [facility] GASTROENTEROLOGY DEPT [place], [place] [address] (Wo rk) 09/05/2022 Appointment Cardiology Trinity Reid MD [facility] CARDIOLOGY [place], [place] [address] (Wo rk) 09/05/2022 Office Visit Cardiology Trinity Reid MD [facility] CARDIOLOGY [place], [place] [address] (Wo rk) documented as of this [...] Component Value Ref Test Analysis Performed At [facility] Range Method Time Signature UPPER GI [facility] ENDOSCOPY Endoscopy Procedure Date: 06/25/2022 10:33 AM ? Patient Name: Koko Zamora ? Date of : 1940 ? Age: 81 ? Order #: [id number] ? Instrument Name: EC-760P- [id number],EG-760CT- [id number] ? Procedure: ? Upper GI endoscopy Indications: ? Recent gastrointestinal bleeding Providers: ? Giovani Ponce, Isi puente, ? Brissa Vee RN, Darrell ? Confalone Referring MD: ?[facility]: ? Propofol per Anesthesia Complications: ? [...] Value Ref Test [facility] Method Time Signature COLONOSCOPY [facility] Endoscopy Procedure Date: 06/25/2022 10:33 AM ? Patient Name: Koko Zamora ? Date of : 1940 ? Age: 81 ? Order #: [id number] ? Instrument Name: EC-760P- [id number] ? Procedure: ? Colonoscopy Indications: ? Gastrointestinal [...] Procedure Code(s): ? --- Professional --- ? 16130, Colonoscopy, flexib le; with ? control of [...] of sigmoid ? colon CPT copyright 2021 [employer]. All rights reserved. The codes documented in this report are preliminary and upon retort load expediter review may be revised to meet current [...] Procedure) documented in this encounter Care Teams Cardiology Physician Assistant Relationship Specialty Start Date End Date Bobby Das MD PCP - General 10/02/[address] [place] [address] [place] [phone] documented as of this encounter
--- OUTSIDE RECORDS SUMMARY | 2022-07-17 10:36 | XMS_ITS | Encounter Summary ---
:1940 Author Organization [facility] [place] [address] Care Team Providers Name Role Phone Bobby Das MD Primary Care Provider Reason for Referral Consultation (Routine) - Authorized Specialty Diagnoses / Procedures Referred By Contact Refer red To Contact Gastroenterology Diagnoses Adenomatous polyp of colon, unspecified part of colon Colonoscopy 06/25/22, discussed w/Dr. Ponce needs to be seen in clinic to discuss polyp / removal iso plavix & DOAC Isi Celaya MD [facility] Gastro 4l [facility] [place] [address] [place] [address] Phone: Fax: Referral ID Status Reason Start Date Expiration Visits Visits Date Requested Authorized [id number] Authorized Consult, 06/25/2022 06/25/2023 1 1 Test & Treat Scheduling Instructions To be seen in ~2mo Encounter Details Date Type Department Care Team Description 06/25/2022 Orders Only Gastroenterology at [facility] Isi Celaya Adenomatous polyp of [facility] Bobby Mera [place], [place] [address] [facility] part of colon [phone] [facility] [place] [address] Social History Tobacco Use Types Packs/Day Years [...] [facility] DR GASTROENTEROLOGY DEPT [place] [phone] (Wo rk) 09/05/2022 Appointment Cardiology Trinity Reid MD [facility] CARDIOLOGY [place], [place] [address] (Wo rk) 09/05/2022 Office Visit Cardiology Trinity Reid MD [facility] CARDIOLOGY [place], [place] [address] (Wo rk) Scheduled Referrals Name Type Priority Associated Order Schedule Diagnoses Referral to Outpatient Routine Adenomatous polyp Ordered: Gastroenterology Referral of colon, 06/25/2022 unspecified part of colon documented as of this encounter Visit Diagnoses Diagnosis Adenomatous polyp of colon, unspecified part of colon documented in this encounter Care Teams Towel Sewer Relationship Specialty Start Date End Date Bobby Das MD PCP - General 10/02/[address] [place] [address] [place] [phone] documented as of this encounter
--- OUTSIDE RECORDS SUMMARY | 2022-07-17 10:37 | XMS_ITS | Encounter Summary ---
:1940 [place] [address] Care Team Providers Name Role Phone Bobby Das MD Primary Care Provider Reason for Referral Diagnostic Test (Routine) - Closed Specialty Diagnoses / Procedures Referred By Contact Refer red To Contact Cardiology Diagnoses Paroxysmal atrial fibrillation Nasrin Parra PA [facility] Non-Inv Card Lab Procedures Ziopatch 48 Hrs-15 Days [facility] VASCULAR SURGERY [place], [place] [id number] [place] [phone] Fax: Referral ID Status Reason Start Date Expiration Date Visits V isits Requested Authorized [id number] Closed Specialty 05/21/2022 10/21/2022 1 1 Service Requested Reason for Visit Auth/Cert Specialty Diagnoses / Procedures Referred By Contact Refer red To Contact Diagnoses Limb ischemia LLE thrombus Fito Summers MD [facility] [place] [address] Referral ID Status Reason Start Date Expiration Date Visits Requ ested Visits Authorized [id number] 1 1 Encounter Details Date Type Department Care Team Description 05/21/2022 Hospital Encounter Non-Invasive Paroxysma l atrial [place] [address] Social History Tobacco Use Types Packs/Day [...] 04/12/20 21 (FLONASE) 50 mcg/actuation Nare route [place], Suspension daily as needed. fluorouraciL (EFUDEX) 5 [...] 08/08/2022 Office Visit Gastroenterology Negra Collins MD [facility] DR GASTROENTEROLOGY DEPT [place], [place] [address] (Wo rk) 09/05/2022 Appointment Cardiology Trinity Reid MD [facility] CARDIOLOGY [place], [place] [address] (Wo rk) 09/05/2022 Office Visit Cardiology Trinity Reid MD [facility] CARDIOLOGY [place], [place] [address] (Wo rk) documented as of [...] fibrillation documented in this encounter Care Teams Veterinary Milk Specialist Relationship Specialty Start Date End Date Bobby Das MD PCP - General 10/02/[address] [place] [address] [place] [phone] documented as of this encounter
--- OUTSIDE RECORDS SUMMARY | 2022-07-17 10:37 | XMS_ITS | Encounter Summary ---
:1940 Author Organization [facility] [place] [address] Care Team Providers Name Role Phone Bobby Das MD Primary Care Provider Encounter Details Date Type Department Care Team Description 05/24/2022 Telephone Cardiology at [facility] Kourtney Jimenez, RN [facility] [place] [address] Social History Tobacco Use Types Packs/Day [...] [facility] DR GASTROENTEROLOGY DEPT [place], [place] [address] (Wo rk) 09/05/2022 Appointment Cardiology Trinity Reid MD [facility] ER CARDIOLOGY [place], [place] [address] (Wo rk) 09/05/2022 Office Visit Cardiology Trinity Reid MD [facility] ER CARDIOLOGY [place], [place] [address] (Wo rk) documented as of this encounter Visit Diagnoses Not on filedocumented in this encounter Care Teams Reshipping Clerk Relationship Specialty Start Date End Date Bobby Das MD PCP - General 10/02/[address] [place] [address] [place] [address] documented as of this encounter
--- OUTSIDE RECORDS SUMMARY | 2022-07-17 10:37 | XMS_ITS | Encounter Summary ---
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 Atrial fibrillation, unspecified type; [facility] SOB (shortness of breath) Drive DR [place] VASCULAR SURGERY [phone] [place] [id number] [phone] Social History Tobacco Use Types Packs/Day Years [...] onset Afib who presents in transfer from [facility] with acute limb ischemia of the [...] emergently went to the OR for L CORPORATE TECHNICAL RECRUITER transverse arteriotomy and primary repair, thromboembolectomy of L SFA/PFA/CORPORATE TECHNICAL RECRUITER, reperfusion venous drainage for 250 cc, and [...] ND, no palpable pulsatile masses Extremity - [place], warm, no ulceration, brisk capillary refill, left [...] intact sutures removed Left leg incision with iwndy remain intact No cellulitis. Uncontrolled Afib, SOB, hypotensive, dizzy. Code White called He was evaluated and taken to ER for further evaluation RTC 06/13/22 with studies and see Dr Summers. documented in this encounter Plan of Treatment Upcoming Encounters Date Type Specialty Care Team Description 08/08/2022 Office Visit Gastroenterology Negra Collins MD [facility] ER GASTROENTEROLOGY DEPT [place] [address] (Wo rk) 09/05/2022 Appointment Cardiology Trinity Reid MD [facility] ER CARDIOLOGY [place], [place] [address] (Wo rk) 09/05/2022 Office Visit Cardiology Trinity Reid MD [facility] CARDIOLOGY [place], [place] [address] (Wo rk) documented as of this encounter Visit Diagnoses Diagnosis Dizzy Dizziness and giddiness Atrial fibrillation, unspecified type SOB (shortness of breath) Shortness of breath documented in this encounter Care Teams Incubator Operator Relationship Specialty Start Date End Date Bobby Das MD PCP - General 10/02/[address] [place] [address] [place] [address] documented as of this encounter
--- OUTSIDE RECORDS SUMMARY | 2022-07-17 10:37 | XMS_ITS | Encounter Summary ---
:1940 Author Organization [facility] [place] [address] Care Team Providers Name Role Phone Bobby Das MD Primary Care Provider Reason for Referral Consultation (Routine) - Authorized Specialty Diagnoses / Procedures Referred By Contact Refer red To Contact Diagnoses Non-ST elevation myocardial infarction (NSTEMI) Limb ischemia Nasrin Parra PA [facility] Tobacco Treatment [facility] [place] [address] [place] [address] Referral ID Status Reason Start Date Expiration Visits Visits Date Requested Authorized [id number] Authorized Consult, 05/21/2022 05/21/2023 1 1 Test & Treat iagnostic Test (Routine) - Closed Specialty Diagnoses / Procedures Referred By Contact Refer red To Contact Cardiology Diagnoses Paroxysmal atrial fibrillation Nasrin Parra PA [facility] Non-Inv Card Lab Procedures Ziopatch 48 Hrs-15 Days [facility] [place] [address] [place] [address] Fax: Referral ID Status Reason Start Date Expiration Date Visits V isits Requested Authorized [id number] Closed Specialty 05/21/2022 10/21/2022 1 1 Service Requested Consultation (Routine) - Closed Specialty Diagnoses / Procedures Referred By Contact Refer red To Contact Cardiology Diagnoses HFrEF (heart failure with reduced ejection fraction) Paroxysmal atrial fibrillation Post-hospital follow-up, s/p PCI with stenting, heart failure Nasrin Parra PA [facility] Cardiology 4a [facility] D R [facility] [place] [address] [place] [address] Referral ID Status Reason Start Date Expiration Date Visits V isits Requested Authorized [id number] Closed Consult, 05/21/2022 05/21/2023 1 1 Test & Treat iagnostic Test (Routine) - Authorized Specialty Diagnoses / Procedures Referred By Contact Refer red To Contact Diagnoses Limb ischemia Nasrin Parra PA [facility] Vascular Lab 3v Procedures JOSSELYN, legs, multiple levels [facility] [place] [address] [place] [address] Referral ID Status Reason Start Expiration Visits Visits Date Date Requested Authorized [id number] Authorized Specialty 05/21/2022 05/21/2023 1 1 Service Requested [facility] (Routine) - Authorized Specialty Diagnoses / Procedures Referred By Contact Refer red To Contact Diagnoses Limb ischemia Fito Summers MD [facility], [facility] VASCULAR SURGERY [address] [place] [address] [address] Fax: Referral ID Status Reason Start Date Expiration Visits Visits Date Requested Authorized [id number] Authorized Consult, 05/21/2022 11/17/2022 999 999 Test & Treat Reason for Visit Reason Comments Left Leg Pain Auth/Cert Specialty Diagnoses / Procedures Referred By Contact Refer red To Contact Diagnoses Limb ischemia LLE thrombus Fito Summers MD [facility] [place] [address] Referral ID Status Reason Start Date Expiration Date Visits Requ ested Visits Authorized [id number] 1 1 Encounter Details Date Type Department Care Team Description 05/15/2022 - Hospital Intermediate Cardiac Ravi Summers MD [facility] [place] [address] Atrial fibrillation, unspecified type; 05/21/2022 Encounter Care Unit Wellington Gerard MD [facility] [place] [address] Non-ST elevation myocardial infarction ( NSTEMI); [facility] Limb isch emia; [facility] HFrEF (heart failure with re duced ejection fraction); [facility] [place]ys[place] [address] Social History Tobacco Use Types Packs/Day Years [...] Afib who presents in transfer from [facility] with acute limb ischemia of [...] emergently went to the OR for L GOVERNMENT AFFAIRS DIRECTOR transverse arteriotomy and primary repair, thromboembolectomy of L SFA/PFA/GOVERNMENT AFFAIRS DIRECTOR, reperfusion venous drainage for 250 cc, and [...] Discharge Condition: Good Discharge to: Home with [address] [address] Future Appointments and Orders Future Appointments and Orders Future Appointments Provider Department Dept Phone 05/23/2022 10:30 AM Loretta Cohen MD Dermatology at [facility] Arrive at: [facility] [address] [place] [address] 06/07/2022 1:30 PM Gail Rae APRN Vascular Surgery at [facility] Arrive at: [facility] Area [phone] 06/13/2022 7:30 AM Edson Lagos [place] Vascular Lab at [facility] Arrive at: [facility] [phone] 06/13/2022 8:00 AM Fito Summers MD Vascular Surgery at [facility] Arrive at: [facility] [phone] 06/13/2022 10:00 AM Alan Reid MD Cardiology at [facility] Arrive at: [facility] [phone] Future Orders Complete By Expires Demetriusopatch 48 Hrs-15 Days [[id number] CPT(R)] 05/21/2022 11/20/2022 Process Instructions: Scheduling Instructions: Comments: Questions: Does the patient have a pacemaker? If yes provide HI/LO settings: Apply for 7 or 14 days?: 7 Where will study be performed?: [facility] Clinics JOSSELYN, legs, multiple levels [VAS8 Custom] 06/21/2022 (Approximate) 12/21/2022 Process Instructions: There is no in-house vascular label folder available on weeknights (5pm-8am), weekends, or holidays. IF THIS IS A REQUEST FOR AN EMERGENT STUDY DURING THOSE HOURS, please have the senior provider responsible for the patient page the Vascular Surgery Fellow/Senior Resident senior sustainability consultant to discuss options. Scheduling Instructions: Questions: Indication for study/signs & symptoms: ALI s/p L fem cutdown with thromboembolectomy Question to be answered: Perfusion to feet? Please check toe pressure Preferred location?: [facility] Clinics Referral to Cardiology [REF12 [...] Zamora for admission to Home Health. [address] [facility] [address] (home) Date of : 1940 Inpatient DOCUMENTATION FOR VNA SERVICES (INCLUDING THOSE PATIENTS WITH MEDICARE COVERAGE REQUIRING HOME VNA SERVICES AND/OR HOSPICE SERVICES) PATIENT'S LOCATION: Koko Zamora [address] [facility] [phone] (home) Cell: No relevant phone numbers on file. Radio Television Technical Director's Name: Koko In discussion with the attending physician, it is certified that this patient is under their care and that they, or a Nurse Practitioner,Clinical Nurse specialist or Physician Forwarder Operator who is working directly with them, [...] for managing ADL's. HOME HEALTH CARE AGENCY: [facility] [address] [place] [address] Start of care: Within 24 to 48 [...] obtained from this patient'sPCP: Bobby Das MD [address] [place] [phone] All A agencies which cover the [...] For any problems or questions please call [phone] For issues on weeknights after 5pm and weekends please call [phone] and ask for the Vascular Fellow senior sustainability consultant. JOSEE Santiago Vascular Surgery 05/21/2022 documented [...] For any problems or questions please call [phone] For issues on weeknights after 5pm and weekends please call [phone] and ask for the Vascular Fellow senior sustainability consultant. documented in this encounter Medications at [...] 04/12/20 21 (FLONASE) 50 mcg/actuation Nare route [place], Suspension daily as needed. fluorouraciL (EFUDEX) 5 [...] Afib who presents in transfer from [facility] with acute limb ischemia of [...] status, full code. JOSEE Santiago 05/21/2022 Pager: [phone] Brannon Isaacs, PT - 05/21/2022 10:35 AM [...] plan as stated. Time IN / OUT: 8619-2955 Total Minutes, Physical Therapy: 25 Billing Code: 2 B[place]ON Isaacs DPT Pager: [phone] Physical Therapy Inpatient Rehabilitation Department Wellington Jean [...] Intermediate Cardiac Care Unit [facility] Office Visit from 04/17/2021 in Pain and Spine Center at [facility] Weight 79.8 kg (175 lb [...] and plan of care per Dr. Mcnamara (pipeline maintenance supervisor). Please refer to her note above for [...] to Hosp-Admission (Current) from 05/15/2022 in 4 [facility] Office Visit from 04/17/2021 in Pain and Spine Center at [facility] Weight 79.8 kg (175 lb [...] findings andplan of care per Dr. Mcnamara (pipeline maintenance supervisor). Please refer to her note above for [...] a mitral repair in 2000 (not at [facility]) with no CAD at that [...] AF and the first documented HR at [facility] was 125 bpm (presented to [...] cardiology clinic. We will continue to follow. [place] Dottie Hill APRN - 05/20/2022 8:34 AM EDT Vascular Surgery Progress Note Koko Zamora is a 81 y.o. male with w new onset Afib who presents in transfer from [facility] with acute limb ischemia of [...] management following Dtotie Hill APRN 05/20/2022 Pager: [phone] Laney Atkins RN - 05/20/2022 1:14 AM [...] 05/20/2022 1:09 AM EDT Pt. Transferred to [facility]. RN accompanied patient to floor and handed off to [facility] RN Dottie Hill APRN - 05/19/2022 10:02 AM EDT Vascular Surgery Progress Note Koko Zamora is a 81 y.o. male with w new onset Afib who presents in transfer from [facility] with acute limb ischemia of the LLE. ?? The patient had sudden pain starting at 630 05/15/22, he presented [facility] where he was placed on heparin. [...] management following Dottie Hill APRN 05/19/2022 Pager: [phone] Emily Greer RN - 05/19/2022 6:28 AM EDT OUTCOME EVALUATION NOTE: OUTCOME SUMMARY: Patient AOx4, VSS on RA. Afib on tele. HR controlled w/ PRN metop, given x2. Denies CP, SOB, n/v. See flowsheets for NVC. Dressings to LLE CDI, prevena WV to groin intact. Voiding to urinal. LBM CARPET JACK, patient stating he will maybe try the [...] adequately without difficulty to bedside urinal. LBM CARPET JACK. Up to chair this AM with nursing staff. Worked with PT, tolerated well. Diet changed to regular at 1800.Plan is for cardiac cath on Friday. PLAN MOVING FORWARD: Bleeding precautions Pain management neurovascular checks PT/OT medical lab tech instructor INDIVIDUALIZED FALL PREVENTION INTERVENTIONS: Patient-specific fall risk [...] Afib who presents in transfer from [facility] with acute limb ischemia of [...] mL Intravenous BID ??? PHENobarbitaL 0.12 mg/kg/dose (Lookeba) Oral BID ??? thiamine 100 mg Oral [...] management following Dottie Hill APRN 05/18/2022 Pager: [phone] Brannon Isaacs, PT - 05/18/2022 10:00 AM [...] in this evaluation. Time IN / OUT: 4126-0062 Total Minutes, Physical Therapy: 30 Billing Code: Basilio Isaacs, PT Pager: [phone] Physical Therapy Inpatient Rehabilitation Department Emily Sauceda RN - 05/18/2022 4:34 AM EDT OUTCOME EVALUATION NOTE: OUTCOME SUMMARY: Patient AOx4, VSS on 2LNC. Afib on tele. HR above 120, MD aware, PRN IV metop given x1, HR returned to 90's-low 100's. Denies CP, SOB, n/v. See flowsheets for NVC. Dressings to LLE CDI, prevena WV to groin intact. Voiding to urinal. LBM CARPET JACK. Heparin gtt therapeutic. Pain controlled. Patient sleeping [...] adequately without difficulty to bedside urinal. LBM CARPET JACK. Patient not OOB this shift. Currently NPO awaitingprocedure in landscape laborer. PLAN MOVING FORWARD: Bleeding precautions Pain management neurovascular checks PT/OT NPO for landscape laborer INDIVIDUALIZED FALL PREVENTION INTERVENTIONS: Patient-specific fall [...] Emergency Department as a transfer from [facility] with left lower extremity limb ischemia. He went to [facility] and was startedon heparin and transferred to [facility] for evaluation by vascular surgery with subsequent [...] he will will be going to the landscape laborer for evaluation. Will defer PT eval at present but will see as ordered post cardiac catheritizaton. Social Hx:Pt lives with his Ursula in [place], [place] in a 2 level home in [...] WBAT LLE LISBET HERMAN PT Pager # [phone] In-Pt Rehab Medicine Dottie Hill APRN - 05/17/2022 7:42 AM EDT Vascular Surgery Progress Note Koko Zamora is a 81 y.o. male with w new onset Afib who presents in transfer from [facility] with acute limb ischemia of [...] mL Intravenous BID ??? PHENobarbitaL 0.24 mg/kg/dose (Lookeba) Oral BID Followed by ??? [START ON 05/18/2022] PHENobarbitaL 0.12 mg/kg/dose (Lookeba) Oral BID ??? thiamine 100 mg Oral [...] management following Dottie Hill APRN 05/17/2022 Pager: [phone] Sary Dos Santos, RN - 05/17/2022 12:16 [...] Afib who presents in transfer from [facility] with acute limb ischemia of [...] mL Intravenous BID ??? PHENobarbitaL 0.48 mg/kg/dose (Lookeba) Oral BID Followed by ??? [START ON 05/17/2022] PHENobarbitaL 0.24 mg/kg/dose (Lookeba) Oral BID Followed by ??? [START ON 05/18/2022] PHENobarbitaL 0.12 mg/kg/dose (Lookeba) Oral BID ??? thiamine 100 mg Oral [...] management following Edward Rodríguez MD 05/16/2022 Pager: [phone] Sary Dos Santos RN - 05/16/2022 12:52 [...] 2129 Hand off to DION Ramirez 3 long bottom documented in this encounter H&P Notes Kerry [...] Afib who presents in transfer from [facility] with acute limb ischemia of [...] Refill ??? fluticasone propionate (FLONASE) 50 mcg/actuation Gro[place], Suspension as needed. ??? fluorouraciL (EFUDEX) 5 [...] and consented. Tim Chicas MD 05/15/2022 Pager: [phone] documented in this encounter ED Notes Lc Harris PA - 05/15/2022 1:20 PM EDT ED Provider Note HPI: Koko Zamora is a 81 y.o. male with history of atrial fibrillation not on anticoagulation, and GI bleeding who presents to the Emergency Department as a transfer from [facility] with left lower extremity limb ischemia. Patient says that the symptoms started roughly 630 this morning when he developed severe pain in his left lower extremity. He went to [facility] and was started on heparin and transferred to [facility] for evaluation by vascular surgery. Review of [...] lower extremity earlier today and went to [facility] where it was determined that he had ischemia of the left lower extremity. Vascular surgery [facility] was contacted and he was [...] orders before pt. Arrival. Pt. Arrived at [facility] by EMS at 1150, vascular [...] an outpatient cardiac rehabilitation program at [facility] was discussed. Patient agrees to a referral to this program. Timing will depend on his recovery from Vascular surgery. He is going home w/VNA PT. I gave him the brochure for the program at [facility] for future reference. Care Management [...] information for follow-up [facility] H[facility], [facility] [address] [place] [address] Transportation: family or friend will provide Functional [...] *No Product type* / Secondary Insurance: [facility] Prescription Coverage: Yes This plan was formulated with input from patient and team. All are in agreement with plan. IP RS has communicated with [facility] - for initial IMM. RAlmita (Satish) DION López RN/CM - Cellphone: [phone] Pager: [phone] Covering Service RN/CM Plan of Care - [...] catheterization, transferred in hospital bed accompanied by Press Operator Assistant RN, remains on telemetry monitoring. Heparin gtt [...] *No Product type* / Secondary Insurance: [facility] Last Physical Therapy Recommendation: home with home health, home with supervision with None Last Occupational Therapy Recommendation: with Plan for discharge is: Home w/ Services Outpatient Agency/Support Group Needs: None Home Health Services: Registered Nurse, Physical Therapy, Occupational Therapy Agency Referrals: I have met with the patient to: ?? discuss discharge planning needs. ?? provide the [facility], Office of Care Management letter from the [employer] Sprayer pertaining to rehab referrals. ?? provide a letter describing our affiliations within the [facility] and educate about their right to choose where referrals are sent. ?? provide a list of Home Health Agencies / Durable Medical Equipment vendors which serve their preferred geographic area. ?? provided patient with [facility] Star Quality Rating handout. They have requested referrals to: [facility]. [address] [place] [address] Note routed to a Tobacco Wrapping Machine Tender who will communicate referrals to facilities and provide any required information. Transportation: family or friend will provide Barriers to discharge: None Plan going forward: Patient is going for a cardiac cath today and plan will come from there. Patientwas recently seen by PT and they recommend VNA at time of discharge. [facility] was routed and pendedat this time. Care Management will continue to follow and assist with discharge planning and coordination of care as indicated. Anticipated Date of Discharge: 05/21/2022 Nataly RICHMOND RN Phone: [phone] Pager: [phone] Plan of Care - Laney Atkins RN [...] original note were not included. [facility] [place] [address] [place] [address] INPATIENT CARDIOLOGY CONSULT NOTE Date of Consultation: 05/17/2022 Admit Date: 05/15/2022 Hospital Day 2 days Reason for Consult: New afib Active Problems: Active Hospital Problems Diagnosis Limb ischemia Resolved Hospital Problems No resolved problems to display. HPI: Koko Zamora is a 81 y.o. male with a PMHx significant for MVP (s/p MV repair 2000), tobacco use, HLD, who presented to [facility] from OSH on 05/15 with acute limb ischemia of LLE and was found to be in atrial fibrillation. Patient had sudden onset LLE pain on 05/15 and presented to [facility], where he was started on heparin and transferred to [facility]. Upon arrival to [facility], patient was in atrial fib [...] mouth daily. fluticasone propionate (FLONASE) 50 mcg/actuation [place], Suspension as needed. ascorbic acid, vitamin C, [...] 5 mL Intravenous BID PHENobarbitaL 0.24 mg/kg/dose (Lookeba) Oral BID Followed by [START ON 05/18/2022] PHENobarbitaL 0.12 mg/kg/dose (Lookeba) Oral BID thiamine 100 mg Oral Daily folic acid 1,000 mcg Oral Daily multivitamin with minerals 1 tablet Oral Daily heparin (porcine) infusion 1,200 Units/hr (05/17/22 3504) Family History: No family history on file. [...] ED to Hosp-Admission (Current) from 05/15/[address] [place] [address] Office Visit from 04/17/2021 in Pain and Spine Center at [facility] Weight 79.8 kg (175 lb [...] continue to follow Anne-Marie Larson MD Pager [phone] Clinic: [phone] 05/17/22 6:22 PM Initial Assessments - Ifrah [...] spouse would be surrogate decision maker per [place] surrogate decision making law. (Only good for 180 days) Any patient receiving care at [facility] must abide by [place] law. The hierarchy for surrogate decision making [...] (i) The agent with financial power of water main pipe layer or a conservator appointed in accordance with [...] seat Home Address confirmed as: [facility] [facility] [address] Social & Family Supports: All names listed below confirmed with patient as Incorrect. Will notify conifer to correct. Wifes address is same as and phone is [phone]. Extended Emergency Contact Information Primary Emergency Contact: Demarco Zamorana Address: [facility] [place] [address] [facility] Relation: Spouse Current Care Provided [...] *No Product type* / Secondary Insurance: [facility] Prescription Coverage: Yes Preferred Pharmacy: [id number] - [place], [place] - [address] [facility] [address] [place] [address] [id number] - [place], [place] - [address] [facility] [address] [facility] [address] [place] Status: Patient is a : unable to assess Primary Care Provider: Bobby Das MD [phone] Patient/Caregiver Goals of Treatment: to walk again Potential Needs for Transition of Care: none noted per 05/16 IDR Transportation: family will provide Transportation Anticipated: family or friend will provide Concerns to be Addressed: no discharge needs identified Assessment: Patient is admitted to vascular surg service for left lower extremity limb ischemia Plan: Per PT OT recommendations . Has used [employer] in the past. A member of the Care Management team will continue to monitor progress, follow for continuity of care and assist with transition of care planning. Ifrah Bell RN BSN Program ProfessionalFoot Press Operator of Care Management Pager [phone] Brief Op Note - Erin Garza MD - 05/15/2022 5:04 PM EDT Brief Operative Note Patient Name: Koko Zamora : [id number] MR#: [id number] Case Date: 05/15/2022 Surgeon: Surgeon(s) and Role: [...] IV antibiotics: Ceftriaxone Op Note - Erin Graza MD - 05/15/2022 2:08 PM EDT [facility] Operative Note Patient Name: Koko Zamora : [id number] MR#: [id number] Case Date: 05/15/2022 Surgeon: Surgeon(s) and Role: [...] Collins MD [facility] GASTROENTEROLOGY DEPT [place], [place] [address] (Wo rk) 09/05/2022 Appointment Cardiology Trinity Reid MD [facility] CARDIOLOGY [place], [place] [address] (Wo rk) 09/05/2022 Office Visit Cardiology Trinity Reid MD [facility] CARDIOLOGY [place], [place] [address] (Wo rk) Scheduled Referrals Name [...] Component Value Ref Test Analysis Performed At [facility] Range Method Time Signature VB Text Department: Vascular Surgery Lab VASCUBASE Report Patient: [id number] (KOKO ZAMORA) CPT: 56783 Referring Physician: FITO SUMMERS ?? Phone: Indications: s/p L GOVERNMENT AFFAIRS DIRECTOR endart. Diabetes mellitus: no Findings: Right [...] EDT) athologist Signature Heparin UFH 0.42 IU/mL [facility] LABORATORY Comment: Heparin (anti-Xa) levels should [...] Organization Address City/State/[place] [address] Differential, Automated (05/21/2022 6:15 AM EDT) athologist Signature Neutrophils % 58.8 % [facility] LABORATORY Neutr Abs (ANC) 3.97 1.70 - [facility] 6.10 [facility] x10(3)[facility] LABORATORY Lymphocytes % 25.2 % [facility] LABORATORY Lymphocytes Abs 1.7 0.9 - 3.2 [facility] x10(3)/[facility] LABORATORY Monocytes % 12.9 % [facility] LABORATORY Monocyte Abs 0.9 0.3 - 0.9 [facility] x10(3)[facility] LABORATORY Eosinophils % 2.1 % [facility] LABORATORY Eosinophils Abs 0.1 0.0 - 0.4 [facility] x10(3)/[facility] LABORATORY Basophils % 0.4 % [facility] LABORATORY Basophils Abs 0.0 0.0 - 0.1 [facility] x10(3)/[facility] LABORATORY Immature Gran % [...] Abs 0.04 0.00 - 0.04 x10(3)/[facility] LABORATORY Specimen Anatomical Collection Method Collection Time Receive d Time (Source) Location / / Volume Laterality Blood 05/21/2022 6:15 AM 2 6:38 EDT AM EDT Resulting Agency Comment Spec In Lab Edward Rodríguez MD HEMATOLOGY ORDERABLES Performing Organization Address City/State/[place] [address] (ABNORMAL) Hemogram (05/21/2022 6:15 AM EDT) [facility] gist Method Time Signature WBC 6.8 4.0 - 9.5 [facility] LABORATORY RBC 3.59 (L) 4.58 - [facility] 5.54 [facility] x10(6)/[facility] LABORATORY Hemoglobin 11.8 (L) 13.7 - [facility] 16.5 g/dL [facility] HOSPITAL LABORATORY Hematocrit 34.5 (L) 40.5 - [facility] % [facility] LAB[facility]ATORY MCV 96.1 (H) 82.9 - [facility] XIAO 93.1 [facility] LABORATORY MCH 32.9 (H) 27.5 - [facility] 32.1 pg [facility] LABORATORY MCHC 34.2 32.0 - [facility] 35.7 g/dL [facility] LABORATORY Platelets 198 145 - 357 [facility] x10(3)/[facility] LABORATORY RDWSD 44.9 36.0 - [facility]0 [facility] LABORATORY RDWCV 12.6 11.4 - [facility] XIAO 13.8 % [facility] LABORATORY MPV 10.0 7.6 - 12.9 [facility] nRBC % Auto 0.3 % [facility] LABORATORY nRBC Abs Auto 0.020 (H) 0.000 - [facility] 0.000 [facility] x10(3)/[facility] LABORATORY Specimen Anatomical Collection Method Collection Time Receive d Time (Source) Location / / Volume Laterality Blood 05/21/2022 6:15 AM 2 6:38 EDT AM EDT Resulting Agency Comment Spec In Lab Edward Rodríguez MD HEMATOLOGY ORDERABLES Performing Organization Address City/State/[place] [address] EKG 12 Lead (05/20/2022 7:04 PM EDT) Component Value Ref Range Test Analysis Performed Pathologis t Method Time At Signature Ventricular rate 101 BPM MUSE SYSTEM QRS Duration 116 ms MUSE SYSTEM Q-T Interval 378 ms MUSE SYSTEM QTC Calculated 490 ms MUSE SYSTEM (Bezet) Calculated R [place] -53 degrees MUSE SYSTEM Calculated T [place] 101 degrees MUSE SYSTEM INTERPRETATION Atrial fibrillation [...] Laterality Volume Narrative 05/20/2022 7:09 PM EDT ?[facility] ? Cardiac Cathete rization/Intervention Report ? Patient Name: Koko Zamora ? Procedure Date: 05/20/2022 ? A #: [id number] ? Primary Physician: Abundio Servin ? Case #: [id number] ? File Name: [id number] ? Catheterization Order Number: [id number] ? [facility] ? Final Report [place], [place] ? Patient Name: ? Koko J. Klarissa uson ? ID#: ?[id number] ? : ?1940 ? Procedure Date: ? [...] procedure was Urgent. The indication for ?the landscape laborer visit is cardiomyo nita. Chest pain [...] insertion were ?performed and the equipment uti lizraghu will be described in the ?intervention summary [...] ?3.5 guiding catheter and a 3.[address] [facility] [address] [address] ??20 Mhz. ??Imaging ?was successful. ??Image [...] A premounted 2. 75 x 30 mm [place] (AMPARO) was deployed ? with a maximum [...] require ?modification of this regimen. C onsult [facility] Interventional Cardiology for ?questions. ?The [...] note might be different from the original. [facility] Cardiac Catheterization/Intervention Re port Patient Name: Koko Zamora Procedure Date: 05/20/2022 A #: [id number] Primary Physician: Abundio Servin Case #: File Name: [id number] Catheterization Order Number: [id number] [facility] Press Operator Assistant [facility] Final Report [place], [place] Patient Name: Koko Zamora ID#: [id number] : 1940 Procedure Date: May 20, 2022 Case #: Room: 1 Case Physician: Fabienne Boswell tart: 17:16 Admission: 05/15/2022 Referring Physician: Julee Cruz Discharge: 05/21/2022 Procedures: * Coronary Angiography * Left Heart Catheterization * Coronary Ultrasound * Coronary Angioplasty * Coronary Stent Insertion History Koko Zamora is a 81 year old man . [...] designated a s ASA Class IV. The [facility] clinical frailty scale is 3: Managing Well. [...] e was Urgent. 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 C hest pain symptom [...] 3.5 guiding catheter and a 3.[address] [facility] [address] 20 Mhz. Imaging was successful. Image [...] atmospheres. A premounted 2.75 x 30 mm [place] (AMPARO) was deployed with a maximum inflation [...] require modification of this regimen. Consult [facility] Interventional Cardiology for questions. The 1 year [...] 123 65 - 199 [facility] mg/dL [facility] LABORATORY Comment: Supplemental ranges: <140 mg/dL before meals <180 mg/dL all other times of the day Specimen Anatomical Collection Method Collection Time Receive d Time (Source) Location / / Volume Laterality Blood 05/20/2022 5:42 PM 5:42 EDT PM EDT Fito Summers MD POINT OF CARE TEST ORDERABLE S Performing Organization Address City/State/[place] [address] (ABNORMAL) BMP w/fasting Glucose (05/20/2022 10:50 AM EDT) P athologist Signature Glucose 152 (H) 65 - 99 [facility] Fasting mg/dL [facility] LABORATORY Comment: ?Fasting* Glucose Interpretive C [...] of Diabetes Mellitus, Position Statement from the [place] [employer]. ??Diabete s Care, Volume 33, [...] Organization Address City/State/[place] [address] Heparin (unfractionated) Level (05/20/2022 5:02 AM EDT) athologist Signature Heparin UFH 0.57 IU/mL [facility] LABORATORY Comment: Heparin (anti-Xa) levels should [...] Organization Address City/State/[place] [address] (ABNORMAL) Differential, Automated (05/20/2022 5:02 AM EDT) Patholo gist Method Time Signature Neutrophils % 58.1 % [facility] LABORATORY Neutr Abs (ANC) 4.52 1.70 - [facility] 6.10 [facility] x10(3)/[facility] LABORATORY Lymphocytes % 24.1 % [facility] LABORATORY Lymphocytes Abs 1.9 0.9 - 3.2 [facility] x10(3)/[facility] LABORATORY Monocytes % 13.8 % [facility] LABORATORY Monocyte Abs 1.1 (H) 0.3 - 0.9 [facility] x10(3)/[facility] LABORATORY Eosinophils % 2.6 % [facility] LABORATORY Eosinophils Abs 0.2 0.0 - 0.4 [facility] x10(3)/[facility] LABORATORY Basophils % 0.8 % [facility] LABORATORY Basophils Abs 0.1 0.0 - 0.1 [facility] x10(3)/[facility] LABORATORY Immature Gran % [...] Organization Address City/State/[place] [address] (ABNORMAL) Hemogram (05/20/2022 5:02 AM EDT) Analysis Performed At Patho logist Time Signature WBC 7.8 4.0 - 9.5 [facility] x10(3)/[facility] LABORATORY RBC 3.53 (L) 4.58 - [facility] XIAO 5.54 [facility] x10(6)/[facility] LABORATORY Hemoglobin 11.4 (L) 13.7 - [facility] 16.5 g/dL [facility] LABORATORY Hematocrit 34.3 (L) 40.5 - [facility] XIAO 48.5 % [facility] LABORATORY MCV 97.2 (H) 82.9 - [facility] XIAO 93.1 [facility] LABORATORY MCH 32.3 (H) 27.5 - [facility] 32.1 pg [facility] LABORATORY MCHC 33.2 32.0 - [facility] 35.7 g/dL [facility] LABORATORY Platelets 181 145 - 357 [facility] x10(3)/[facility] LABORATORY RDWSD 46.4 (H) 36.0 - [facility] XIAO 45.0 [facility] LABORATORY RDWCV 13.0 11.4 - [facility] X[facility]O 13.8 % [facility] LABORATORY MPV 10.4 7.6 - 12.9 [facility] LABORATORY nRBC % Auto 0.0 % [facility] LABORATORY nRBC Abs Auto 0.000 0.000 - [facility] 0.000 [facility] x10(3)/[facility] LABORATORY Specimen Anatomical Collection Method Collection Time Receive d Time (Source) Location / / Volume Laterality Blood 05/20/2022 5:02 AM 2 5:19 EDT AM EDT Resulting Agency Comment Spec In Lab Edward Rodríguez MD HEMATOLOGY ORDERABLES Performing Organization Address City/State/[place] [address] Heparin (unfractionated) Level (05/19/2022 3:26 AM EDT) P athologist Signature Heparin UFH 0.59 IU/mL [facility] LABORATORY Comment: Heparin (anti-Xa) levels should [...] Address City/State/[place] [address] (ABNORMAL) Differential, Automated (05/19/2022 3:26 AM EDT) Patholo gist Method Time Signature Neutrophils % 62.1 % [facility] LABORATORY Neutr Abs (ANC) 4.59 1.70 - [facility] 6.10 [facility] x10(3)/[facility] LABORATORY Lymphocytes % 22.1 % [facility] LABORATORY Lymphocytes Abs 1.6 0.9 - 3.2 [facility] x10(3)/[facility] LABORATORY Monocytes % 13.5 % [facility] LABORATORY Monocyte Abs 1.0 (H) 0.3 - 0.9 [facility] x10(3)/[facility] LABORATORY Eosinophils % 1.3 % [facility] LABORATORY Eosinophils Abs 0.1 0.0 - 0.4 [facility] x10(3)/[facility] LABORATORY Basophils % 0.5 % [facility] LABORATORY Basophils Abs 0.0 0.0 - 0.1 [facility] x10(3)/[facility] LABORATORY Immature Gran % [...] Abs 0.04 0.00 - 0.04 x10(3)/[facility] LABORATORY Specimen Anatomical Collection Method Collection Time Receive d Time (Source) Location / / Volume Laterality Blood 05/19/2022 3:26 AM 2 3:59 EDT AM EDT Resulting Agency Comment Spec In Lab Edward Rodríguez MD HEMATOLOGY ORDERABLES Performing Organization Address City/State/[place] [address] (ABNORMAL) Hemogram (05/19/2022 3:26 AM EDT) Analysis Performed At Patho logist Time Signature WBC 7.4 4.0 - 9.5 [facility] x10(3)/[facility] LABORATORY RBC 3.74 (L) 4.58 - [facility] 5.54 [facility] x10(6)/[facility] LABORATORY Hemoglobin 12.1 (L) 13.7 - [facility] 16.5 g/dL [facility] LABORATORY Hematocrit 36.4 (L) 40.5 - [facility] [place] 48.5 % [facility] LABORATORY MCV 97.3 (H) 82.9 - [facility] 93.1 [facility] LABORATORY MCH 32.4 (H) 27.5 - [facility] [place] 32.1 pg [facility] LABORATORY MCHC 33.2 32.0 - [facility] [place] 35.7 g/dL [facility] LABORATORY Platelets 168 145 - 357 [facility] x10(3)/[facility] LABORATORY RDWSD 46.9 (H) 36.0 - [facility] 45.0 [facility] LABORATORY RDWCV 13.0 11.4 - [facility] 13.8 % [facility] LABORATORY MPV 10.5 7.6 - 12.9 [facility] LABORATORY nRBC % Auto 0.0 % [facility] LABORATORY nRBC Abs Auto 0.000 0.000 - [facility] 0.000 [facility] x10(3)/[facility] LABORATORY Specimen Anatomical Collection Method Collection Time Receive d Time (Source) Location / / Volume Laterality Blood 05/19/2022 3:26 AM 2 3:59 EDT AM EDT Resulting Agency Comment Spec In Lab Edward Rodríguez MD HEMATOLOGY ORDERABLES Performing Organization Address City/State/[place] [address] TSH (05/18/2022 8:00 PM EDT) P athologist Signature TSH 2.27 0.27 - 4.20 [facility] mcIU/mL [facility] LABORATORY Comment: Reference Interval (mcIU/mL): Females: ??First Trimester: 0.23-3.88 ??Second Trimester: 0.22-3.90 ??Third Trimester: 0.44-4.66 Specimen Anatomical Collection Method Collection Time Receive d Time (Source) Location / / Volume Laterality Blood 05/18/2022 8:00 PM 2 8:06 EDT PM EDT Resulting Agency Comment Spec In Lab Fito Summers MD CHEMISTRY ORDERABLES Performing Organization Address City/State/ZIP Code Phon e Number [address] (ABNORMAL) Differential, Automated (05/18/2022 3:34 AM EDT) [facility] Method Time Signature Neutrophils % 67.2 % [facility] LABORATORY Neutr Abs (ANC) 5.89 1.70 - [facility] 6.10 [facility] x10(3)/[facility] LABORATORY Lymphocytes % 17.1 % [facility] LABORATORY Lymphocytes Abs 1.5 0.9 - 3.2 [facility] x10(3)/[facility] LABORATORY Monocytes % 13.6 % [facility] LABORATORY Monocyte Abs 1.2 (H) 0.3 - 0.9 [facility] x10(3)/[facility] LABORATORY Eosinophils % 1.0 % [facility] LABORATORY Eosinophils Abs 0.1 0.0 - 0.4 [facility] x10(3)/[facility] LABORATORY Basophils % 0.6 % [facility] LABORATORY Basophils Abs 0.0 0.0 - 0.1 [facility] x10(3)/[facility] LABORATORY Immature Gran % [...] Abs 0.04 0.00 - 0.04 x10(3)/[facility] LABORATORY Specimen Anatomical Collection Method Collection Time Receive d Time (Source) Location / / Volume Laterality Blood 05/18/2022 3:34 AM 3:48 EDT AM EDT Resulting Agency Comment Spec In Lab Edward Rodríguez MD HEMATOLOGY ORDERABLES Performing Organization Address City/[facility]/ZIP Code Phon e Number [address] (ABNORMAL) Hemogram (05/18/2022 3:34 AM EDT) Analysis Performed At Patho logist Time Signature WBC 8.8 4.0 - 9.5 [facility] x10(3)/[facility] LABORATORY RBC 3.45 (L) 4.58 - [facility] 5.54 [facility] x10(6)/[facility] LABORATORY Hemoglobin 11.2 (L) 13.7 - [facility] 16.5 g/dL [facility] LABORATORY Hematocrit 33.0 (L) 40.5 - [facility] 48.5 % [facility] LABORATORY MCV 95.7 (H) 82.9 - [facility] 93.1 [facility] LABORATORY MCH 32.5 (H) 27.5 - [facility] 32.1 pg [facility] LABORATORY MCHC 33.9 32.0 - [facility] 35.7 g/dL [facility] LABORATORY Platelets 130 (L) 145 - 357 [facility] x10(3)/[facility] LABORATORY RDWSD 46.2 (H) 36.0 - [facility] 45.0 [facility] LABORATORY RDWCV 13.2 11.4 - [facility] 13.8 % [facility] LABORATORY MPV 10.8 7.6 - 12.9 [facility] LABORATORY nRBC % Auto 0.0 % [facility] LABORATORY nRBC Abs Auto 0.000 0.000 - [facility] 0.000 [facility] x10(3)/[facility] LABORATORY Specimen Anatomical Collection Method Collection Time Receive d Time (Source) Location / / Volume Laterality Blood 05/18/2022 3:34 AM 3:48 EDT AM EDT Resulting Agency Comment Spec In Lab Edward Rodríguez MD HEMATOLOGY ORDERABLES Performing Organization Address City/State/[place] [address] Heparin (unfractionated) Level (05/18/2022 3:34 AM EDT) P athologist Signature Heparin UFH 0.59 IU/mL [facility] Comment: Heparin (anti-Xa) levels should be [...] Summers MD HEMATOLOGY ORDERABLES Performing Organization Address City/[facility]/[place] [address] Magnesium (05/17/2022 3:33 AM EDT) athologist Signature Magnesium 0.76 0.69 - 1.07 [facility] mmol/L [facility] LABORATORY Specimen Anatomical Collection Method Collection Time Receive d Time (Source) Location / / Volume Laterality Blood Venous Draw / 05/17/2022 3:33 AM 05/17/20 4:05 Unknown EDT AM EDT Resulting Agency Comment Spec In Lab Dottie Hill APRN CHEMISTRY ORDERABLES Performing Organization Address City/[facility]/[place] [address] (ABNORMAL) Basic Metabolic Panel (non-fasting) (05/17/2022 3:33 AM EDT) athologist Signature Glucose Lvl 158 65 - 199 [facility] mg/dL [facility] LABORATORY Comment: Diabetes: >=200 mg/dL plus symp toms BUN 12 10 - 20 mg/dL [facility] LABORATORY Creatinine 0.74 (L) 0.80 - [...] 15 mmol/L [facility] LABORATORY Calcium 8.4 (L) 8.5 - [...] Organization Address City/State/[place] [address] (ABNORMAL) Differential, Automated (05/17/2022 3:33 AM EDT) [facility] gist Method Time Signature Neutrophils % 65.5 % [facility] LABORATORY Neutr Abs (ANC) 6.84 (H) 1.70 - [facility] 6.10 [facility] x10(3)/[facility] L LABORATORY Lymphocytes % 19.7 % [facility] LABORATORY Lymphocytes Abs 2.1 0.9 - 3.2 [facility] x10(3)/[facility] LABORATORY Monocytes % 13.1 % [facility] LABORATORY Monocyte Abs 1.4 (H) 0.3 - 0.9 [facility] x10(3)/[facility] LABORATORY Eosinophils % 0.6 % [facility] LABORATORY Eosinophils Abs 0.1 0.0 - 0.4 [facility] x10(3)/[facility] LABORATORY Basophils % 0.6 % [facility] LABORATORY Basophils Abs 0.1 0.0 - 0.1 [facility] x10(3)/[facility] LABORATORY Immature Gran % 0.50 % [...] Organization Address City/State/[place] [address] (ABNORMAL) Hemogram (05/17/2022 3:33 AM EDT) Analysis Performed At Patho logist Time Signature WBC 10.4 (H) 4.0 - 9.5 [facility] x10(3)/[facility] LABORATORY RBC 3.72 (L) 4.58 - [facility] 5.54 [facility] x10(6)/[facility] LABORATORY Hemoglobin 12.0 (L) 13.7 - [facility] 16.5 g/dL [facility] LABORATORY Hematocrit 36.4 (L) 40.5 - [facility] 48.5 % [facility] LABORATORY MCV 97.8 (H) 82.9 - [facility] 93.1 [facility] LABORATORY MCH 32.3 (H) 27.5 - [facility] 32.1 pg [facility] LABORATORY MCHC 33.0 32.0 - [facility] 35.7 g/dL [facility] LABORATORY Platelets 149 145 - 357 [facility] x10(3)/[facility] LABORATORY RDWSD 48.7 (H) 36.0 - [facility] XIAO 45.0 [facility] LABORATORY RDWCV 13.5 11.4 - [facility] 13.8 % [facility] LABORATORY MPV 10.6 7.6 - 12.9 [facility] LABORATORY nRBC % Auto 0.0 % [facility] LABORATORY nRBC Abs Auto 0.000 0.000 - [facility] 0.000 [facility] x10(3)/[facility] LABORATORY Specimen Anatomical Collection Method Collection Time Receive d Time (Source) Location / / Volume Laterality Blood 05/17/2022 3:33 AM 3:53 EDT AM EDT Resulting Agency Comment Spec In Lab Edward Rodríguez MD HEMATOLOGY ORDERABLES Performing Organization Address City/[facility]/[place] [address] (ABNORMAL) Urinalysis Microscopic Exam [...] Organization Address City/State/ZIP Code Phon [place] [address] (ABNORMAL) Urinalysis with reflex Culture (05/16/2022 11:15 PM EDT) Patholo gist Method Time Signature Glucose UA Negative Negative [facility] mg/dL [facility] LABORATORY Protein UA Negative Negative [facility] mg/dL [facility] LABORATORY Bilirubin UA Negative Negative [facility] mg/dL [facility] LABORATORY Comment: Clinical correlation required for [...] - 8.0 [facility] LABORATORY Blood UA Small (A) Negative mg/dL [facility] LABORATORY Ketones UA Trace (A) Negative mg/dL [facility] LABORATORY Nitrite UA Negative Negative [facility] LABORATORY Leukocytes UA Negative Negative [facility] LABORATORY Appearance UA Clear Clear [facility] LABORATORY Spec [place] UA 1.021 1.005 - 1.030 [facility] LABORATORY Color UA Yellow Yellow [facility] LABORATORY Culture Reflexed No [facility] LABORATORY Specimen Anatomical Collection Method Collection Time Receive d Time (Source) Location / / Volume Laterality Clean Catch 05/16/2022 11:15 05/16/2022 Urine PM EDT 11:30 PM EDT Resulting Agency Comment Spec In Lab Fito Summers MD URINE ORDERABLES Performing Organization Address City/State/[place] [address] Heparin (unfractionated) Level (05/16/2022 10:59 PM EDT) P athologist Signature Heparin UFH 0.65 IU/mL [facility] LABORATORY Comment: Specimen drawn more than [...] Organization Address City/State/ZIP Code Phon e Number [place] [id number] HOSPITAL LABORATORY Drive XR Chest One View [...] questions please contact the health home care specialist that requested your imaging first. [...] questions please contact the health home care specialist that requested your imaging first. Fito Summers MD IMG DX ORDERABLES EKG 12 Lead (05/16/2022 8:57 PM EDT) Component Value Ref Range Test Analysis Performed Pathologis t Method Time At Signature Ventricular rate 117 BPM MUSE SYSTEM QRS Duration 112 ms MUSE SYSTEM Q-T Interval 346 ms MUSE SYSTEM QTC Calculated 482 ms MUSE SYSTEM (Bezet) Calculated R [place] -48 degrees MUSE SYSTEM Calculated T [place] 111 degrees MUSE SYSTEM INTERPRETATION Atrial fibrillation [...] Summers MD ECG ORDERABLES Performing Organization Address City/[facility]/ZIP Code Phon e Number MUSE SYSTEM Heparin (unfractionated) Level (05/16/2022 4:34 PM EDT) P athologist Signature Heparin UFH 0.53 IU/mL [facility] LABORATORY Comment: Heparin (anti-Xa) levels should [...] Summers MD HEMATOLOGY ORDERABLES Performing Organization Address City/[facility]/[place] [address] ECHOCARDIO[address] COMPLETE W CONTRAST (05/16/2022 12:49 PM EDT) P athologist Signature EF 28 HEARTLAB SYSTEM Anatomical Region Laterality Modality Cardiac Other Specimen (Source) Anatomical Collection Method Collection Time Re ceived Time Location / / Volume Laterality 05/16/2022 11:22 AM EDT Narrative 05/16/2022 1:54 PM EDT ?[facility] ?[address] ? [place] [address] ?Voice: ?Fax: ? Echocardiogram Report Name: KOKO ZAMORA ?Study Date: 05/16/2022 11:22 AM ? Patient Location: 3T 0303 B : 1940 ? Height: 67.5 in ? Account: [id number] Age: 81 yrs ? Weight: 176 lb Gender: Male ?BSA: 1.9 m2 Ordering Physician: FITO SUMMERS Referring Physician: MALI FLORIAN Performed By: Jolene Bernard RDCS Exam Location: [facility]. Interpretation Summary Left ventricle is [...] and LV systolic dysfunction are new. Procedure Complete-[id number]. Image enhancement Optiso n was used for [...] note might [place] [address] Voice: Fax: Echocardiogram Report Name: KOKO ZAMORA Study Date: 05/2022 11:22 AM Patient Location: [address] [place] [address] : 1940 Height: 67.5 in Account: [id number] Age: 81 yrs Weight: 176 lb Gender: Male BSA: 1.9 m2 Ordering Physician: FITO SUMMERS Referring Physician: MALI FLORIAN Performed By: Jolene Bernard RDCS Exam Location: [facility]. Interpretation Summary Left ventricle is [...] and LV systolic dysfunction are new. Procedure Complete-[id number]. Image enhancement Optiso n was used for [...] small Interpret Hypokinetic Dyskinetic 3-5 mod erate - -14 large Aneurysmal 15-16 diffuse Fito Summers MD ECHO ORDERABLES (ABNORMAL) Differential, Automated (05/16/2022 3:01 AM EDT) [facility] Method Time Signature Neutrophils % 78.8 % [facility] LABORATORY Neutr Abs (ANC) 9.11 (H) 1.70 - [facility] 6.10 [facility] x10(3)/[facility] LABORATORY Lymphocytes % 9.4 % [facility] LABORATORY Lymphocytes Abs 1.1 0.9 - 3.2 [facility] x10(3)/[facility] LABORATORY Monocytes % 10.9 % [facility] LABORATORY Monocyte Abs 1.3 (H) 0.3 - 0.9 [facility] x10(3)/[facility] LABORATORY Eosinophils % 0.0 % [facility] Eosinophils Abs 0.0 0.0 - 0.4 [facility] x10(3)/[facility] LABORATORY Basophils % 0.3 % [facility] Basophils Abs 0.0 0.0 - 0.1 [facility] x10(3)/[facility] LABORATORY Immature Gran % 0.60 % [...] Organization Address City/State/ZIP Code Phon e Number [place] [id number] LAB[address]ATORY [address] (ABNORMAL) Hemogram (05/16/2022 3:01 AM EDT) Analysis Performed At Patho logist Time Signature WBC 11.6 (H) 4.0 - 9.5 [facility] x10(3)/[facility] LABORATORY RBC 3.62 (L) 4.58 - [facility]54 [facility] x10(6)/[facility] LABORATORY Hemoglobin 12.0 (L) 13.7 - [facility] 16.5 g/dL [facility] Hematocrit 35.3 (L) 40.5 - [facility] 48.5 % [facility] MCV 97.5 (H) 82.9 - [facility] 93.1 [facility] LABORATORY MCH 33.1 (H) 27.5 - [facility] 32.1 pg [facility] MCHC 34.0 32.0 - [facility] 35.7 g/dL [facility] Platelets 151 145 - 357 [facility] x10(3)/[facility] RDWSD 47.6 (H) 36.0 - [facility] 45.0 [facility] RDWCV 13.3 11.4 - [facility] 13.8 % [facility] MPV 10.5 7.6 - 12.9 [facility] LABORATORY nRBC % Auto 0.0 % [facility] nRBC Abs Auto 0.000 0.000 - [facility] 0.000 [facility] x10(3)/[facility] LABORATORY Specimen Anatomical Collection Method Collection Time Receive d Time (Source) Location / / Volume Laterality Blood 05/16/2022 3:01 AM 2 3:36 EDT AM EDT Resulting Agency Comment Spec In Lab Erin Garza MD HEMATOLOGY ORDERABLES Performing Organization Address City/State/ZIP Code Phon e Number [address] Phosphorus (05/16/2022 3:01 AM EDT) P athologist Signature Phosphorus 3.7 2.5 - 4.5 [facility] mg/dL [facility] Specimen Anatomical Collection Method Collection Time Receive d Time (Source) Location / / Volume Laterality Blood 05/16/2022 3:01 AM 2 3:36 EDT AM EDT Resulting Agency Comment Spec In Lab Fito Summers MD CHEMISTRY ORDERABLES Performing Organization Address City/State/ZIP Code Phon e Number [address] Magnesium (05/16/2022 3:01 AM EDT) P athologist Signature Magnesium 0.77 0.69 - 1.07 [facility] mmol/L [facility] Specimen Anatomical Collection Method Collection Time Receive d Time (Source) Location / / Volume Laterality Blood 05/16/2022 3:01 AM 2 3:36 EDT AM EDT Resulting Agency Comment Spec In Lab Fito Summers MD CHEMISTRY ORDERABLES Performing Organization Address City/[facility]/ZIP Code Phon e Number [address] (ABNORMAL) Basic Metabolic Panel (non-fasting) (05/16/2022 3:01 AM EDT) P athologist Signature Glucose Lvl 222 (H) 65 - 199 [facility] mg/dL [facility] Comment: Diabetes: >=200 mg/dL plus symp toms BUN 12 10 - 20 mg/dL [facility] Creatinine 0.66 (L) 0.80 - [...] Anion Gap 8 5 - 15 mmol/L [facility] Calcium 8.2 (L) 8.5 - 10.5 mg/dL [facility] Estimated GFR 95 >=60 mL/min/1.73 m?? [facility] Comment: This patient's estimated GFR was calcula dede using the 2020 CKD-EPI equation. The estimated GFR can vary from the allsion ured GFR by up to 30% in [...] Organization Address City/State/[place] [address] (ABNORMAL) BLOOD GAS 2 ARTERIAL (05/15/2022 3:33 PM EDT) Analysis Performed At Patho logist Time Signature pH Art 7.33 (L) 7.35 - [facility] 7.45 [facility] pCO2 Art 41 35 - 45 [facility] mmHg [facility] pO2 Art 131 (H) 85 - 104 [facility] LABORATORY HCO3 Art 21.1 20.0 - [facility] 26.0 [facility] mmol/L [facility] BE Art -4.8 (L) -3.0 - 3.0 [facility] mmol/L [facility] Hgb Blood Gas 13.4 (L) 13.7 - [facility] 16.5 g/dL [facility] O2HB Art 96.9 94.0 - [facility] 97.0 % [facility] COHB Art 1.4 % [facility] Comment: Nonsmokers: 0.5-1.5% COHB Smokers: Variable, but usually less than 10% Toxic: 20-30% COHB Lethal: Greater than 60% COHB METHB Art 0.3 <=1.5 % [facility] Na Whole Blood 139 135 [...] Blood 113 (H) 98 - 107 mmol/L [facility] Gluc Whole Bld 136 65 [...] Organization Address City/State/[place] [address] (ABNORMAL) BLOOD GAS 2 ARTERIAL (05/15/2022 2:06 PM EDT) Analysis Performed At Patho logist Time Signature pH Art 7.39 7.35 - [facility] 7.45 [facility] pCO2 Art 35 35 - 45 [facility] mmHg [facility] pO2 Art 135 (H) 85 - 104 [facility] LABORATORY HCO3 Art 20.8 20.0 - [facility] 26.0 [facility] mmol/L [facility] BE Art -4.2 (L) -3.0 - 3.0 [facility] mmol/L [facility] Hgb Blood Gas 14.5 13.7 - [facility] 16.5 g/dL [facility] O2HB Art 97.2 (H) 94.0 - [facility] 97.0 % [facility] COHB Art 1.2 % [facility] Comment: Nonsmokers: 0.5-1.5% COHB Smokers: Variable, but usually less than 10% Toxic: 20-30% COHB Lethal: Greater than 60% COHB METHB Art 0.3 <=1.5 % [facility] Na Whole Blood 140 135 [...] Blood 109 (H) 98 - 107 mmol/L [facility] Gluc Whole Bld 152 65 [...] Torre MD CHEMISTRY ORDERABLES Performing Organization Address City/[facility]/[place] [address] (ABNORMAL) Prothrombin Time (05/15/2022 12:30 PM EDT) P athologist Signature PT 12.9 (H) 9.4 - 12.5 [facility] LABORATORY INR 1.1 [facility] [...] Morales DO HEMATOLOGY ORDERABLES Performing Organization Address City/[facility]/ZIP [facility] [place] [address] (ABNORMAL) APTT (05/15/2022 12:30 [...] Agency Comment Spec In Lab Jhonny Daquan Andrew DO HEMATOLOGY ORDERABLES Performing Organization Address City/State/[place] [address] Gold Tube HOLD (05/15/2022 12:20 PM EDT) P athologist Signature Gold Hold Sample in [facility]. [facility] Specimen Anatomical Collection Method Collection Time Receive d Time (Source) Location / / Volume Laterality Blood No Charge / 05/15/2022 12:20 05/15/2022 Unknown PM EDT 12:20 PM EDT Lc Tan Kimberly TRIPP CHEMISTRY ORDERABLES Performing Organization Address City/[facility]/[place] [address] Type and Screen Validity (05/15/2022 12:00 PM EDT) [facility] gist Method Time Signature T&S only valid [facility] LABORATORY Comment: This Type and Screen result is only valid at the [facility] Specimen Anatomical Collection Method Collection Time Receive d Time (Source) Location / / Volume Laterality Blood 05/15/2022 12:00 05/15/2022 PM EDT 12:17 PM EDT Resulting Agency Comment Spec In Lab Lc Harris PA BLOOD BANK ORDERABLES Performing Organization Address City/[facility]/ZIP Code Phon e Number [address] ABORH Recheck Status (05/15/2022 12:00 PM EDT) [facility] gist Method Time Signature ABORH Recheck Order Placed [facility] K Order [facility]ATORY ABORH Type Complete [facility] LABORATORY Specimen Anatomical Collection Method Collection Time Receive d Time (Source) Location / / Volume Laterality Blood 05/15/2022 12:00 05/15/2022 PM EDT 12:17 PM EDT Resulting Agency Comment Spec In Lab Lc Tan Kimberly PA BLOOD BANK ORDERABLES Performing Organization Address City/State/[place] [address] CK (05/15/2022 12:00 PM EDT) P athologist Signature CK, Total 87 0 - 200 [facility] unit/L [facility] LABOR[facility]ORY Specimen Anatomical Collection Method Collection Time Receive d Time (Source) Location / / Volume Laterality Blood Venous Draw / 05/15/2022 12:00 05/15/2022 Unknown PM EDT 12:19 PM EDT Resulting Agency Comment Spec In Lab Fito Summers MD CHEMISTRY ORDERABLES Performing Organization Address City/State/[place] [address] Antibody screen (05/15/2022 12:00 PM EDT) [facility] Method Time Signature Ab Screen Negative [facility] LABORATORY Expires at 05/18/2022 [facility] [id number] on: [facility]ORY Specimen Anatomical Collection Method Collection Time Receive d Time (Source) Location / / Volume Laterality Blood 05/15/2022 12:00 05/15/2022 PM EDT 12:17 PM EDT Resulting Agency Comment Spec In Lab Lc TRIPP BLOOD BANK ORDERABLES Performing Organization Address City/[facility]/ZIP Code Phon e Number [address] ABO/Rh Typing (05/15/2022 12:00 PM EDT) athologist Signature ABORh Type O Pos [facility] Specimen Anatomical Collection Method Collection Time Receive d Time (Source) Location / / Volume Laterality Blood 05/15/2022 12:00 05/15/2022 PM EDT 12:17 PM EDT Resulting Agency Comment Spec In Lab Lc TRIPP BLOOD BANK ORDERABLES Performing Organization Address City/[facility]/[place] [address] (ABNORMAL) Differential, Automated (05/15/2022 12:00 PM EDT) [facility] Method Time Signature Neutrophils % 79.4 % [facility] Neutr Abs (ANC) 7.49 (H) 1.70 - [facility] 6.10 [facility] x10(3)/[facility] L LABORATORY Lymphocytes % 11.3 % [facility] Lymphocytes Abs 1.1 0.9 - 3.2 [facility] x10(3)/[facility] LABORATORY Monocytes % 7.8 % [facility] Monocyte Abs 0.7 0.3 - 0.9 [facility] x10(3)/[facility] LABORATORY Eosinophils % 0.6 % [facility] Eosinophils Abs 0.1 0.0 - 0.4 [facility] x10(3)/[facility] LABORATORY Basophils % 0.6 % [facility] Basophils Abs 0.1 0.0 - 0.1 [facility] x10(3)/[facility] LABORATORY Immature Gran % 0.30 % [facility] [...] Rain Gran Abs 0.03 0.00 - 0.04 x10(3)/[facility]ORY Specimen Anatomical Collection Method Collection Time Receive d Time (Source) Location / / Volume Laterality Blood 05/15/2022 12:00 05/15/2022 PM EDT 12:19 PM EDT Resulting Agency Comment Spec In Lab Lc TRIPP HEMATOLOGY ORDERABLES Performing Organization Address City/State/[place] [address] (ABNORMAL) Hemogram (05/15/2022 12:00 PM EDT) Analysis Performed At Patho logist Time Signature WBC 9.4 4.0 - 9.5 [facility] x10(3)/[facility] LABORATORY RBC 4.48 (L) 4.58 - [facility] 5.54 [facility] x10(6)/[facility] LABORATORY Hemoglobin 14.5 13.7 - [facility] 16.5 g/dL [facility] Hematocrit 42.4 40.5 - [facility] 48.5 % [facility]ORY MCV 94.6 (H) 82.9 - [facility] 93.1 [facility] LABORATORY MCH 32.4 (H) 27.5 - [facility] 32.1 pg [facility]ORY MCHC 34.2 32.0 - [facility] 35.7 g/dL [facility] Platelets 209 145 - 357 [facility] x10(3)/[facility] LABORATORY RDWSD 45.9 (H) 36.0 - [facility]0 [facility] LABORATORY RDWCV 13.1 11.4 - [facility] 13.8 % [facility] MPV 10.5 7.6 - 12.9 [facility] nRBC % Auto 0.0 % [facility] nRBC Abs Auto 0.000 0.000 - [facility] 0.000 [facility] x10(3)/[facility] LABORATORY Specimen Anatomical Collection Method Collection Time Receive d Time (Source) Location / / Volume Laterality Blood 05/15/2022 12:00 05/15/2022 PM EDT 12:19 PM EDT Resulting Agency Comment Spec In Lab Lc TRIPP HEMATOLOGY ORDERABLES Performing Organization Address City/State/[place] [address] (ABNORMAL) Basic Metabolic Panel (non-fasting) (05/15/2022 12:00 PM EDT) P athologist Signature Glucose Lvl 203 (H) 65 - 199 [facility] mg/dL [facility] Comment: Diabetes: >=200 mg/dL plus symp toms BUN 16 10 - 20 mg/dL [facility] LAB[facility] Creatinine 0.84 0.80 - 1.50 [...] Anion Gap 11 5 - 15 mmol/L [facility] LABOR[facility]ORY Calcium 8.5 8.5 - 10.5 [...] Organization Address City/State/[place] [address] documented in this encounter [...] 20 mg, Intravenous, ONCE, 1 dose, On Fri05/16/22 at 2330 furosemide (Lasix) (10 mg/mL) injection [...] mg = 1.8 mg/kg/dose ? 67.7 kg [place] weight), Intravenous, at 11.3 mL/hr, EVERY 3 HOURS, 2 doses, First dose on Fri05/16/22 at 0245, Last dose on Fri05/16/22 at [...] mg = 2.4 mg/kg/dose ? 67.7 kg [place] weight), Intravenous, at 15 mL/hr, ONCE, 1 [...] mg = 0.24 mg/kg/dose ? 67.7 kg [place] weight), Oral, 2 TIMES DAILY, 2 doses, [...] mg = 0.48 mg/kg/dose ? 67.7 kg [place] weight), Oral, 2 TIMES DAILY, 2 doses, First dose on Brandi 05/16/22 at 0900, Last dose on Brandi 05/16/22 at 2100, Hold for RASS Less than [...] mg = 0.12 mg/kg/dose ? 67.7 kg [place] weight), Oral, 2 TIMES DAILY, 2 doses, First dose on [facility] 05/18/22 at 0900, Last dose on [facility] 05/18/22 at 2100, Hold for RASS Less than [...] 81 mg, Oral, DAILY, First dose on e 10/31 at 0900, Until Discontinued, Recovery (Recovery-Hospital Unit), Routine clopidogreL (Plavix) tablet 75 mg 0816 (Given - Provider: Etta Don, RN) 75 mg, Oral, DAILY, First dose on e 10/31 at 0900, Until Discontinued, Recovery (Recovery-Hospital Unit), Routine folic acid (Folvite) tablet 1,000 mcg 0838 (Given - Pr ovider: Caroline Zamora, DION) 0852 (Given - Provider: Barbie Joyce RN)175 (MAR [...] Procedural area)1955 ([facility] Unhold - Provider: Admin Adt)2004 (Given - [...] Adt)2131 (Given - Provider: Tere Blankenship RN) 814 (Given - Provider: Etta contreras RN) 17 [...] Comment: PIV infusing)2099 (Not Given - Provider: Tree Blankenship RN - Reason: Order parameters not [...] - Reason: Transfer to a Procedural area)1955 ([facility] Unhold - Provider: Admin Adt) 0816 (Given - Provider: Etta contreras RN) 100 mg, Oral, DAILY, First dose on Brandi at 0900, Until Discontinued, Routine valsartan (Diovan) tablet 40 mg 837 (Given - Provider : Caroline Zamora, DION)2008 (Given - Provider: Nuris Lester RN) 0853 (Given - Provider: Barbie Joyce RN)1750 ([facility] Hold - Provider: Admin Adt - Reason: Transfer to a Procedural area)1955 ([facility] Unhold - Provider: Admin Adt)2005 (Given - [...] RN) 1600 (New Bag - Provider: Barbie Joyce, DION)1750 (JAN Hold - Provider: Admin Adt - Reason: Transfer to a Procedural area)1955 ([facility] Unhold - Provider: Admin Adt) 218 (Restarted - Provider: Tere Blankenship RN - Comment: 4 hours since tr band off, per MD ashraf)1301 (Rate/Dose Verify - Provider: Etta Don RN)1743 (Due: Stopped) 0-5,000 Units/hr (0-100 mL/hr), Intraven ous, CONTINUOUS, Starting on Brandi 05/16/22 at 0845, Until Tu05/21/22 at 1523, Begin infusion at 1,200 units [...] - Reason: Transfer to a Procedural area)1955 ([facility] Unhold - Provider: Admin Adt) 650 mg, [...] bisacodyL (Dulcolax) suppository 10 mg 1 751 ([facility] Hold - Provider: Admin Adt - Reason: Transfer to a Procedural area)1955 ([facility] Unhold - Provider: Admin Adt) 10 [...] 4 TIMES DAILY PRN, S tarting on 05/15/22 at 1717, Until Fri05/21/22 at 1743, Wheezing, [...] midazolam (pf) (Versed) (1 mg/mL) multi-dose injection ([facility] EL[facility]) 1713 (Given - Provider: Abundio Servin [...]
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
--- OUTSIDE RECORDS SUMMARY | 2022-07-17 10:37 | XMS_ITS | Encounter Summary ---
:1940 Author Organization [facility] [place] [address] Care Team Providers Name Role Phone Bobby Das MD Primary Care Provider Reason for Visit Reason Comments Dizziness Auth/Cert Specialty Diagnoses / Procedures Referred By Contact Refer red To Contact Diagnoses GIB (gastrointestinal bleeding) Abe [facility] [place] [address] Referral ID Status Reason Start Date Expiration Date Visits Requ ested Visits Authorized [id number] 1 1 Encounter Details Date Type Department Care Team Description 05/31/2022 Surgery Gastroenterology at [facility] Giovani Ponce, EGD, UPPER GI [facility] [place] [address] [facility] [phone] [address] [place] [address] Social History Tobacco Use Types Packs/Day [...] switching to a different bloodthinner with the science center display builder outpatient. Call your doctor or seek medical [...] switchingto a different blood thinner with your science center display builder as an outpatient Stopped Medications - Aspirin - Valsartan - Speak with your science center display builder about the timing of restarting this Follow-up Appointments Future Appointments Date Time Provider Department Center 06/10/2022 11:00 AM Loretta Cohen MD [facility] 06/13/2022 7:30 AM Edson [place] [facility] VAS LAB [facility] 06/13/2022 8:00 AM Fito Summers MD [facility] V SURG [facility] 06/13/2022 10:00 AM Alan Reid MD [facility] CARD [address] [place] [address] Your Inpatient Medical Team at [facility] Name(s) of your inpatient provider(s): Dr. John Ames For questions regarding issues relating to your hospitalization on the Hospital Medicine Service, please contact your inpatient physician through the [facility] Environmental Research Scientist [phone]. Issues after hours and on weekends will be handled by the Hospitalist staff on-call. Your Primary Care Provider Bobby Das MD [phone] Future Appointments and Orders Future Appointments and Orders Future Appointments Provider Department Dept Phone 06/10/2022 11:00 AM Loretta Cohen MD Dermatology at [facility] Arrive at: Gas Distribution Supervisor [address] [place] [phone] 06/13/2022 7:30 AM Edson [place] Vascular Lab at [facility] Arrive at: Gas Distribution Supervisor Area 06/13/2022 8:00 AM Fito Summers MD Vascular Surgery at [facility] Arrive at: Gas Distribution Supervisor Area 06/13/2022 10:00 AM Alan Reid MD Cardiology at [facility] Arrive at: Gas Distribution Supervisor Area 4A [phone] For questions regarding this document or issues relating to this hospitalization on the Medical Service, please contact your inpatient physician through the [facility] Environmental Research Scientist . Issues after hours and on weekends [...] switching to a different bloodthinner with the science center display builder outpatient. Call your doctor or seek medical [...] switchingto a different blood thinner with your science center display builder as an outpatient Stopped Medications - Aspirin - Valsartan - Speak with your science center display builder about the timing of restarting this Follow-up Appointments Future Appointments Date Time Provider Department Center 06/10/2022 11:00 AM Loretta Cohen MD [facility] 06/13/2022 7:30 AM Edson [place] [facility] VAS LAB ILDA POWELL 06/13/2022 8:00 AM Fito Summers MD [facility] V SURG [facility] 06/13/2022 10:00 AM Alan Reid MD [facility] CARD 4A [facility] Your Inpatient Medical Team at [facility] Name(s) of your inpatient provider(s): Dr. John Ames For questions regarding issues relating to your hospitalization on the Hospital Medicine Service, please contact your inpatient physician through the [facility] Environmental Research Scientist [phone]. Issues after hours and on weekends will be handled by the Hospitalist staff on-call. Your Primary Care Provider Bobby Das MD [phone] documented in this encounter Medications at Time [...] 04/12/20 21 (FLONASE) 50 mcg/actuation Nare route Hostetter, Suspension daily as needed. fluorouraciL (EFUDEX) 5 [...] spent >30 minutes (Day of Discharge Code 02250) involved in the final examination of the [...] not included. [facility] Medicine Progress Note [place] Team - Pager #[phone] Admit Date: 05/31/2022 Name: Koko Zamora : [...] cardiology to discuss antiplatelet (ISO bleed and mcc), following. ?? #CAD s/p stenting recently #HFrEF [...] Kurt Ames MD Internal Medicine, PGY-1 Medicine [place] Team #[id number] Associated attestation - John Jolley MD - 06/01/2022 5:02 PM EDT [facility] Medicine -- Attending Progress Note Please [...] note were not included. [facility] Medicine (#[id number]) History and Physical Patient info: Name: Koko Zamora : 1940 PCP: Bobby Das MD PCP phone number: [phone] Date of Admission: 05/31/2022 ( Hospital Day [...] IR Biopsy Spine 07/20/2019 Bobby Marshall MD [facility] INTERVENTIONL RAD ??? IR VERTEBROPLASTY LUMBAR MULTIPLE LEVELS 07/20/2019 IR Vertebroplasty Lumbar Multiple Levels 07/20/2019 Bobby Marshall MD [facility] INTERVENTIONL RAD ??? IR VERTEBROPLASTY THORACIC SINGLE LEVEL 10/25/2020 IR Vertebroplasty Thoracic Single Level 10/25/2020 Matt Chisholm MD [facility] INTERVENTIONL RAD ??? PRO EMBLC/THRMBC FEMORAL POPLITEAL AORTO-ILIAC ARTERY Left 05/15/2022 EMBOLECTOMY OR THROMBECTOMY, FEMOROPOPLITEAL, AORTOILIAC ARTERY BY LEG INCISION (WRVU 19.48) performed by Fito Summers MD at [facility] MAIN OR No family history [...] 11 ??? fluticasone propionate (FLONASE) 50 mcg/actuation Hostetter, Suspension as needed. ??? fluorouraciL (EFUDEX) 5 [...] Gas) No results found for: PHART, PO2ART, QKQ3FYZ, ECO4YRS Microbiology: N/A Pertinent radiology/diagnostic studies: Recent prior [...] 05/31/2022 3:58 PM EDT [facility]. Upon arrival to [...] 10:50 AM EDT Pt brought to by lead radiation therapist Brittany Ramirez MD - 05/31/2022 10:40 AM [...] who have questions please contact the health medicare nurse that requested your imaging first. Electronically signed by: Jl Zuluaga MD, [facility] ([phone]), at 05/31/2022 2:39 PM XR Chest PA [...] who have questions please contact the health medicare nurse that requested your imaging first. Electronically signed by: Alan Brink MD, [facility] ([phone]), at 05/31/2022 11:33 AM ED Course as [...] recommendations from Brittany Tavares MD Resident 05/31/22 [id number] Associated attestation - Regina Hinds MD - [...] soft blood pressures, MD made aware. LBM INFORMATION OFFICER. 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 Patient reported blurry/hazy [...] note were not included. [place] [address] INPATIENT CARDIOLOGY CONSULT NOTE Date of Consultation: 06/01/2022 Admit Date: 05/31/2022 Place of Service: IS86/IS86-A Referring Attending: REGINA HINDS COLEMAN W FRIEDMAN, HARLEY P Responsible Tenter Frame Operator: Dr. Rizo Hospital Day 1 day Reason for Consult: Antiplatelet/anticoagulation s/p pci and afib, with GI bleed HPI: Koko Zamora is a 81 y.o. male with a cardiac history significant for remote mitral valve repair (2000), pre-DM, HLD, significant alcohol use, tobacco use, Afib on xarelto, ischemic systolic heartfailure (recent [facility] 05/20/2022 with 2V disease OM1 and distal RCA, had ostial LCX and LCx stent) who presented to [facility] on 05/31/2022 for GI bleed. Patient presented [...] IR Biopsy Spine 07/20/2019 Bobby Marshall MD [facility] INTERVENTIONL RAD ??? IR VERTEBROPLASTY LUMBAR MULTIPLE LEVELS 07/20/2019 IR Vertebroplasty Lumbar Multiple Levels 07/20/2019 Bobby Marshall MD [facility] INTERVENTIONL RAD ??? IR VERTEBROPLASTY THORACIC SINGLE LEVEL 10/25/2020 IR Vertebroplasty Thoracic Single Level 10/25/2020 Matt Chisholm MD [facility] INTERVENTIONL RAD ??? PRO EMBLC/THRMBC FEMORAL POPLITEAL AORTO-ILIAC ARTERY Left 05/15/2022 EMBOLECTOMY OR THROMBECTOMY, FEMOROPOPLITEAL, AORTOILIAC ARTERY BY LEG INCISION (WRVU 19.48) performed by Fito Summers MD at [facility] MAIN OR ALLERGIES: Allergies Allergen [...] time ??? fluticasone propionate (FLONASE) 50 mcg/actuation Hostetter, Suspension 1 spray by Each Nare route [...] from 05/31/2022 in Intermediate Special Care Unit [facility] ED to Hosp-Admission (Discharged) from 05/15/2022 in Intermediate Cardiac Care Unit [facility] Weight 77.1 kg (170 lb) 1 [...] 3.5 guiding catheter and a 3.5 Fr [facility] [place] [address] 20 Mhz. Imaging was successful. [...] A premounted 2.75 x 30 mm Rudy Camuy (AMPARO) was deployed with a maximum inflation [...] require modification of this regimen. Consult [facility] Interventional Cardiology for questions. The 1 year [...] Hb drop. Unknown source. has had a [facility] with stent placed and revascularization of left [...] who have questions please contact the health medicare nurse that requested your imaging first. Electronically signed by: Jl Zuluaga MD, [facility] ([phone]), at 05/31/2022 2:39 PM [place] 48 Hrs-15 [...] who have questions please contact the health medicare nurse that requested your imaging first. Electronically signed by: Alan Brink MD, [facility] ([phone]), at 05/31/2022 11:33 AM LABS Recent Labs [...] on xarelto, ischemic systolic heart failure (recent [facility] 05/20/2022 with 2V disease OM1 and distal RCA, had ostial LCX and LCx stent), recent admission for acutelimb ischemia LLE, where he had left common femoral transverse arteriotomy and primary repair, thromboembolectomy of the SFA, profunda and common femoral artery with 4 compartment fasciotomies, who presented to [facility] on 05/31/2022 for GI bleed. Cardiology consulted [...] for additional insight. Rossy Anaya MD [facility] Agricultural Research Technologist, PGY-5 Inpatient Cardiology Consults Pager #[phone] Please check Qgenda for on-call cardiology consults [...] A&Ox 4. On room air. VSS. LBM: INFORMATION OFFICER. Adequate urine output, urinal at bedside, flomax [...] 180 days) Any patient receiving care in [place] must abide by [place] law. The hierarchy [...] (i) The agent with financial power of admitted attorneys or a conservator appointed in accordance with [...] walker - rolling Home Address confirmed as: [address] [place] [id number] Social & Family Supports: All names listed below confirmed with patient as current and correct Extended Emergency Contact Information Primary Emergency Contact: Ursula Zamora Address: [address] [place] [id number] [facility] Relation: Spouse Current Care Provided by: [...] *No Product type* / Secondary Insurance: [facility] Secondary Insurance? (Only Medicare A&B): Yes ; Prescription Coverage: Yes Preferred Pharmacy: [facility] [place], [place] - [address] [place] [address] [place] [phone] [place] Status: Patient is a : No Primary Care Provider: Bobby Das MD [phone] Patient/Caregiver Goals of Treatment: Patient plans to [...] with transition of care planning. ASH [place] Hydraulic Press In Operator [facility] Medicine/ Medical Specialties Pager- [phone] [...] Operative Note Patient Name: Koko Zamora : [id number] MR#: [id number] Case Date: 05/31/2022 Surgeon: Surgeon(s) and Role: [...] He has had colonoscopies before in [place] - notes first ever he had 6 polyps removed but last colo 5 yrs ago was normal. He lives in [facility]. Currently light-headedness is improved. No fevers, [...] IR Biopsy Spine 07/20/2019 Bobby Marshall MD [facility] INTERVENTIONL RAD ??? IR VERTEBROPLASTY LUMBAR MULTIPLE LEVELS 07/20/2019 IR Vertebroplasty Lumbar Multiple Levels 07/20/2019 Bobby Marshall MD [facility] INTERVENTIONL RAD ??? IR VERTEBROPLASTY THORACIC SINGLE LEVEL 10/25/2020 IR Vertebroplasty Thoracic Single Level 10/25/2020 Matt Chisholm MD [facility] INTERVENTIONL RAD ??? PRO EMBLC/THRMBC FEMORAL POPLITEAL AORTO-ILIAC ARTERY Left 05/15/2022 EMBOLECTOMY OR THROMBECTOMY, FEMOROPOPLITEAL, AORTOILIAC ARTERY BY LEG INCISION (WRVU 19.48) performed by Fito Summers MD at [facility] MAIN OR SOCIAL HX: Social [...] sounds, tympanic to percussion RECTAL: performed with candle making supervisor present, no overt masses, fissures, external hemorrhoids, [...] who have questions please contact the health medicare nurse that requested your imaging first. Electronically signed by: Alan Brink MD, [facility] ([phone]), at 05/31/2022 11:[address] Abdomen & [...] MD [facility] GASTROENTEROLOGY DEPT [place], [place] [address] (Wo rk) 09/05/2022 Appointment Cardiology Trinity Reid MD [facility] CARDIOLOGY [place], [place] [address] (Wo rk) 09/05/2022 Office Visit Cardiology Trinity Reid MD [facility] CARDIOLOGY [place], [place] [address] (Wo rk) documented as of [...] LABORATORY Neutr Abs (ANC) 4.44 1.70 - [facility] 6.10 [facility] x10(3)/[facility] LABORATORY Lymphocytes % 25.2 % [facility] LABORATORY Lymphocytes Abs 1.8 0.9 - 3.2 [facility] x10(3)/[facility] LABORATORY Monocytes % 10.0 % [facility] LABORATORY Monocyte Abs 0.7 0.3 - 0.9 [facility] x10(3)/[facility] LABORATORY Eosinophils % 2.1 % [facility] LABORATORY Eosinophils Abs 0.2 0.0 - 0.4 [facility] x10(3)/[facility] LABORATORY Basophils % 0.7 % [facility] LABORATORY Basophils Abs 0.0 0.0 - 0.1 [facility] x10(3)/[facility] LABORATORY Immature Gran % 0.70 % [...] 0.05 (H) 0.00 - 0.04 x10(3)/[facility] LABORATORY Specimen Anatomical Collection Method Collection Time Receive d Time (Source) Location / / Volume Laterality Blood 06/02/2022 8:20 AM 8:25 EDT AM EDT Resulting Agency Comment Spec In Lab Kurt Ames MD HEMATOLOGY ORDERABLES Performing Organization Address City/State/[place] [address] (ABNORMAL) Hemogram (06/02/2022 8:20 AM EDT) Analysis Performed At Patho logist Time Signature WBC 7.2 4.0 - 9.5 [facility] x10(3)/[facility] LABORATORY RBC 2.74 (L) 4.58 - [facility] 5.54 [facility] x10(6)/[facility] LABORATORY Hemoglobin 8.7 (L) 13.7 - [place] 16.5 g/dL [facility] LABORATORY Hematocrit 25.7 (L) 40.5 - [place] 48.5 % [facility] LABORATORY MCV 93.8 (H) 82.9 - [place] 93.1 [facility] LABORATORY MCH 31.8 27.5 - [place] 32.1 pg [facility] LABORATORY MCHC 33.9 32.0 - [place] 35.7 g/dL [facility] LABORATORY Platelets 260 145 - 357 [facility] x10(3)/[facility] LABORATORY RDWSD 51.0 (H) 36.0 - [place] 45.0 [facility] LABORATORY RDWCV 14.9 (H) 11.4 - [facility] [place] 13.8 % [facility] LABORATORY MPV 10.0 7.6 - 12.9 [facility] LABORATORY nRBC % Auto 0.0 % [facility] LABORATORY nRBC Abs Auto 0.000 0.000 - [facility] [place] 0.000 [facility] x10(3)/[facility] LABORATORY Specimen Anatomical Collection Method Collection Time Receive d Time (Source) Location / / Volume Laterality Blood 06/02/2022 8:20 AM 8:25 EDT AM EDT Resulting Agency Comment Spec In Lab Kurt Ames MD HEMATOLOGY ORDERABLES Performing Organization Address City/State/[place] [address] Heparin (unfractionated) Level (06/02/2022 [...] Victor MD HEMATOLOGY ORDERABLES Performing Organization Address City/[facility]/ZIP Code Phon e Number [address] Heparin (unfractionated) Level (06/02/2022 [...] Victor MD HEMATOLOGY ORDERABLES Performing Organization Address City/[facility]/[place] [address] Magnesium (06/02/2022 12:30 AM EDT) P athologist Signature Magnesium 0.83 0.69 - 1.07 [facility] mmol/L [facility] LABORATORY Specimen Anatomical Collection Method Collection Time Receive d Time (Source) Location / / Volume Laterality Blood 06/02/2022 12:30 06/02/2022 AM EDT 12:40 AM EDT Resulting Agency Comment Spec In Lab Mahendra Victor MD CHEMISTRY ORDERABLES Performing Organization Address City/State/[place] [address] (ABNORMAL) Basic Metabolic Panel (non-fasting) (06/02/2022 12:30 AM EDT) P athologist Signature Glucose Lvl 151 65 - 199 [facility] mg/dL [facility] LABORATORY Comment: Diabetes: >=200 mg/dL plus symp [...] Organization Address City/State/[place] [address] (ABNORMAL) Differential, Automated (06/01/2022 7:29 PM EDT) athologist Signature Neutrophils % 68.8 % [facility] LABORATORY Neutr Abs (ANC) 5.34 1.70 - [facility] 6.10 [facility] x10(3)/[facility] LABORATORY Lymphocytes % 19.6 % [facility] LABORATORY Lymphocytes Abs 1.5 0.9 - 3.2 [facility] x10(3)/[facility] LABORATORY Monocytes % 8.1 % [facility] LABORATORY Monocyte Abs 0.6 0.3 - 0.9 [facility] x10(3)/[facility] LABORATORY Eosinophils % 1.8 % [facility] LABORATORY Eosinophils Abs 0.1 0.0 - 0.4 [facility] x10(3)/[facility] LABORATORY Basophils % 0.8 % [facility] LABORATORY Basophils Abs 0.1 0.0 - 0.1 [facility] x10(3)/[facility] LABORATORY Immature Gran % 0.90 % [facility] [...] 0.07 (H) 0.00 - 0.04 x10(3)/[facility] LABORATORY Specimen Anatomical Collection Method Collection Time Receive d Time (Source) Location / / Volume Laterality Blood 06/01/2022 7:29 PM 2 7:29 EDT PM EDT Resulting Agency Comment Spec In Lab Kurt Ames MD HEMATOLOGY ORDERABLES Performing Organization Address City/State/[place] [address] (ABNORMAL) Hemogram (06/01/2022 7:29 PM EDT) Analysis Performed At Patho logist Time Signature WBC 7.8 4.0 - 9.5 [facility] x[facility](3[facility] LABORATORY RBC 2.65 (L) 4.58 - [facility] [place] 5.54 [facility] x10(6)/[facility] LABORATORY Hemoglobin 8.3 (L) 13.7 - [facility] 16.[facility] g/dL [facility] LABORATORY Hematocrit 24.8 (L) 40.5 - [facility] 48.5 % [facility] LABORATORY MCV 93.6 (H) 82.9 - [facility] 93.1 [facility] LABORATORY MCH 31.3 27.5 - [place] 32.1 pg [facility] LABORATORY MCHC 33.5 32.0 - [place] 35.7 g/dL [facility] LABORATORY Platelets 263 145 - 357 [facility] x10(3)/[facility] LABORATORY RDWSD 52.8 (H) 36.0 - [facility] [place] 45.0 [facility] LABORATORY RDWCV 15.4 (H) 11.4 - [facility] [place] 13.8 % [facility] LABORATORY MPV 10.4 7.6 - 12.9 [facility] nRBC % Auto 0.0 % [facility] LABORATORY nRBC Abs Auto 0.000 0.000 - [facility] [place] 0.000 [facility] x10(3)/[facility] LABORATORY Specimen Anatomical Collection Method Collection Time Receive d Time (Source) Location / / Volume Laterality Blood 06/01/2022 7:29 PM 2 7:29 EDT PM EDT Resulting Agency Comment Spec In Lab Kurt Ames MD HEMATOLOGY ORDERABLES Performing Organization Address City/State/ZIP Code Phon e Number [address] Heparin (unfractionated) Level (06/01/2022 [...] Organization Address City/State/ZIP Code Phon e Number [address] (ABNORMAL) Heparin (unfractionated) Level (06/01/2022 11:32 AM EDT) Patholo gist Method Time Signature Heparin UFH 1.05 IU/mL [facility] (Critical) [facility] LABORATORY Comment: Critical Result called by ?? [...] Organization Address City/State/[place] [address] (ABNORMAL) Differential, Automated (06/01/2022 5:56 AM EDT) [facility] Method Time Signature Neutrophils % 62.7 % [facility] LABORATORY Neutr Abs (ANC) 6.11 (H) 1.70 - [facility] 6.10 [facility] x10(3)/[facility] LABORATORY Lymphocytes % 23.5 % [facility] LABORATORY Lymphocytes Abs 2.3 0.9 - 3.2 [facility] x10(3)/[facility] LABORATORY Monocytes % 10.0 % [facility] LABORATORY Monocyte Abs 1.0 (H) 0.3 - 0.9 [facility] x10(3)/[facility] LABORATORY Eosinophils % 2.2 % [facility] LABORATORY Eosinophils Abs 0.2 0.0 - 0.4 [facility] x10(3)/[facility] LABORATORY Basophils % 0.9 % [facility] LABORATORY Basophils Abs 0.1 0.0 - 0.1 [facility] x10(3)/[facility] LABORATORY Immature Gran % 0.70 % [facility] [...] 0.07 (H) 0.00 - 0.04 x10(3)/[facility] LABORATORY Specimen Anatomical Collection Method Collection Time Receive d Time (Source) Location / / Volume Laterality Blood 06/01/2022 5:56 AM 2 6:05 EDT AM EDT Resulting Agency Comment Spec In Lab Arpita Valle MD HEMATOLOGY ORDERABLES Performing Organization Address City/State/[place] [address] (ABNORMAL) Hemogram (06/01/2022 5:56 AM EDT) Analysis Performed At Patho logist Time Signature WBC 9.7 (H) 4.0 - 9.5 [facility] x10(3)/[facility] LABORATORY RBC 2.83 (L) 4.58 - [facility] 5.54 [facility] x10(6)/[facility] LABORATORY Hemoglobin 9.0 (L) 13.7 - [facility] 16.5 g/dL [facility] LABORATORY Hematocrit 26.7 (L) 40.5 - [facility] 48.5 % [facility] LABORATORY MCV 94.3 (H) 82.9 - [facility] 93.1 [facility] LABORATORY MCH 31.8 27.5 - [facility] 32.1 pg [facility] LABORATORY MCHC 33.7 32.0 - [facility] 35.7 g/dL [facility] LABORATORY Platelets 250 145 - 357 [facility] x10(3)/[facility] LABORATORY RDWSD 54.3 (H) 36.0 - [facility] XIAO 45.0 [facility] LABORATORY RDWCV 15.9 (H) 11.4 - [facility] XIAO 13.8 % [facility] LABORATORY MPV 10.5 7.6 - 12.9 [facility] LABORATORY nRBC % Auto 0.0 % [facility] LABORATORY nRBC Abs Auto 0.000 0.000 - [facility] XIAO 0.000 [facility] x10(3)/[facility] LABORATORY Specimen Anatomical Collection Method Collection Time Receive d Time (Source) Location / / Volume Laterality Blood 06/01/2022 5:56 AM 2 6:05 EDT AM EDT Resulting Agency Comment Spec In Lab Arpita Valle MD HEMATOLOGY ORDERABLES Performing Organization Address City/State/[place] [address] Heparin (unfractionated) Level (06/01/2022 [...] Victor MD HEMATOLOGY ORDERABLES Performing Organization Address City/[facility]/[place] [address] (ABNORMAL) Urinalysis with reflex Culture (06/01/2022 4:00 AM EDT) Patholo gist Method Time Signature Glucose UA 500 Negative [facility] (Critical) mg/dL [facility] LABORATORY Comment: Urinalysis result NOT critical without a combination of Glucose greater than or equal to 500 mg/dL AND Ketones greate r than or equal to 80 mg/dL Protein UA Negative Negative mg/dL [facility] LABORATORY Bilirubin UA Negative Negative mg/dL [facility] LABORATORY Comment: Clinical correlation required [...] [facility] LABORATORY Leukocytes UA Negative Negative [facility] LABORATORY Appearance UA Clear Clear [facility] LABORATORY Spec [place] UA >=1.030 (A) 1.005 - 1.030 [facility] LABORATORY Color UA Yellow Yellow [facility] LABORATORY Culture Reflexed No [facility] LABORATORY Specimen Anatomical Collection Method Collection Time Receive d Time (Source) Location / / Volume Laterality Clean Catch 06/01/2022 4:00 AM 2 4:26 Urine EDT AM EDT Resulting Agency Comment Spec In Lab Mahendra Victor MD URINE ORDERABLES Performing Organization Address City/[facility]/ZIP Code Phon e Number [address] Magnesium (06/01/2022 1:00 AM EDT) athologist Signature Magnesium 0.93 0.69 - 1.07 [facility] mmol/L [facility] LABORATORY Specimen Anatomical Collection Method Collection Time Receive d Time (Source) Location / / Volume Laterality Blood 06/01/2022 1:00 AM 2 1:37 EDT AM EDT Resulting Agency Comment Spec In Lab Mahendra Victor MD CHEMISTRY ORDERABLES Performing Organization Address City/[facility] Phon e Number [address] (ABNORMAL) Basic Metabolic Panel (non-fasting) (06/01/2022 1:00 AM EDT) athologist Signature Glucose Lvl 148 65 - 199 [facility] mg/dL [facility] LABORATORY Comment: Diabetes: >=200 mg/dL plus symp toms BUN 23 (H) 10 - 20 mg/dL [facility] LABORATORY Creatinine 0.78 (L) 0.80 - 1.50 mg/dL [facility] LABORATORY Sodium 141 135 - 145 mmol/L [facility] LABORATORY Potassium 4.0 3.5 - 5.0 mmol/L [facility] [...] Anion Gap 9 5 - 15 mmol/L [facility] LABORATORY Calcium 8.6 8.5 - 10.5 mg/dL [facility] LABORATORY Estimated GFR 91 >=60 mL/min/1.73 [...] Organization Address City/State/[place] [address] (ABNORMAL) Differential, Automated (06/01/2022 12:00 AM EDT) P athologist Signature Neutrophils % 64.6 % [facility] LABORATORY Neutr Abs (ANC) 5.60 1.70 - [facility] 6.10 [facility] x10(3)/[facility] LABORATORY Lymphocytes % 22.4 % [facility] LABORATORY Lymphocytes Abs 1.9 0.9 - 3.2 [facility] x10(3)/[facility] LABORATORY Monocytes % 9.5 % [facility] LABORATORY Monocyte Abs 0.8 0.3 - 0.9 [facility] x10(3)/[facility] LABORATORY Eosinophils % 2.1 % [facility] LABORATORY Eosinophils Abs 0.2 0.0 - 0.4 [facility] x10(3)/[facility] LABORATORY Basophils % 0.6 % [facility] LABORATORY Basophils Abs 0.0 0.0 - 0.1 [facility] x10(3)/[facility] LABORATORY Immature Gran % 0.80 % [facility] [...] 0.07 (H) 0.00 - 0.04 x10(3)/[facility] LABORATORY Specimen (Source) Anatomical Collection Method Collection Time Re ceived Time Location / / Volume Laterality Blood 06/01/2022 06/01/2022 12:1 0 AM EDT Resulting Agency Comment Spec In Lab Arpita Valle MD HEMATOLOGY ORDERABLES Performing Organization Address City/State/[place] [address] (ABNORMAL) Hemogram (06/01/2022 12:00 AM EDT) Analysis Performed At Patho logist Time Signature WBC 8.7 4.0 - 9.5 [facility] x10(3)/[facility] LABORATORY RBC 2.77 (L) 4.58 - [facility] 5.54 [facility] x10(6)/[facility] LABORATORY Hemoglobin 8.6 (L) 13.7 - [place] 16.5 g/dL [facility] LABORATORY Hematocrit 25.7 (L) 40.5 - [place] [place] 48.5 % [facility] LABORATORY MCV 92.8 82.9 - [facility] 93.1 [facility] LABORATORY MCH 31.0 27.5 - [place] [place] 32.1 pg [facility] LABORATORY MCHC 33.5 32.0 - [facility] 35.7 g/dL [facility] LABORATORY Platelets 260 145 - 357 [facility] x10(3)/[facility] LABORATORY RDWSD 51.9 (H) 36.0 - [facility] 45.0 [facility] LABORATORY RDWCV 15.5 (H) 11.4 - [facility] 13.8 % [facility] LABORATORY MPV 10.4 7.6 - 12.9 [facility] LABORATORY nRBC % Auto 0.0 % [facility] LABORATORY nRBC Abs Auto 0.000 0.000 - [facility] 0.000 [facility] x10(3)/[facility] LABORATORY Specimen (Source) Anatomical Collection Method Collection Time Re ceived Time Location / / Volume Laterality Blood 06/01/2022 06/01/2022 12:1 0 AM EDT Resulting Agency Comment Spec In Lab Arpita Valle MD HEMATOLOGY ORDERABLES Performing Organization Address City/State/[place] [address] (ABNORMAL) Differential, Automated (05/31/2022 9:17 PM EDT) P athologist Signature Neutrophils % 59.6 % [facility] LABORATORY Neutr Abs (ANC) 3.98 1.70 - [facility] [place] 6.10 [facility] x10(3)/[facility] LABORATORY Lymphocytes % 27.5 % [facility] LABORATORY Lymphocytes Abs 1.8 0.9 - 3.2 [facility] x10(3)/[facility] LABORATORY Monocytes % 9.1 % [facility] LABORATORY Monocyte Abs 0.6 0.3 - 0.9 [facility] x10(3)/[facility] LABORATORY Eosinophils % 2.4 % [facility] LABORATORY Eosinophils Abs 0.2 0.0 - 0.4 [facility] x10(3)/[facility] LABORATORY Basophils % 0.7 % [facility] LABORATORY Basophils Abs 0.0 0.0 - 0.1 [facility] x10(3)/[facility] LABORATORY Immature Gran % 0.70 % [...] 0.05 (H) 0.00 - 0.04 x10(3)/[facility] LABORATORY Specimen Anatomical Collection Method Collection Time Receive d Time (Source) Location / / Volume Laterality Blood 05/31/2022 9:17 PM 9:25 EDT PM EDT Resulting Agency Comment Spec In Lab Arpita Valle MD HEMATOLOGY ORDERABLES Performing Organization Address City/State/[place] [address] (ABNORMAL) Hemogram (05/31/2022 9:17 PM EDT) Analysis Performed At Patho logist Time Signature WBC 6.7 4.0 - 9.5 [facility] x10(3)/[facility] LABORATORY RBC 2.74 (L) 4.58 - [facility] 5.54 [facility] x10(6)/[facility] LABORATORY Hemoglobin 8.5 (L) 13.7 - [facility] 16.5 g/dL [facility] LABORATORY Hematocrit 25.7 (L) 40.5 - [facility] 48.5 % [facility] LABORATORY MCV 93.8 (H) 82.9 - [facility] 93.1 fL [facility] LABORATORY MCH 31.0 27.5 - [facility] 32.1 pg [facility] LABORATORY MCHC 33.1 32.0 - [place] [place] 35.7 g/dL [facility] LABORATORY Platelets 233 145 - 357 [facility] x10(3)/[facility] LABORATORY RDWSD 51.9 (H) 36.0 - [place] [place] 45.0 [facility] RDWCV 15.3 (H) 11.4 - [facility] XIAO 13.8 % [facility] MPV 10.3 7.6 - 12.9 [facility] XIA[facility] LABORATORY nRBC % Auto 0.0 % [facility] nRBC Abs Auto 0.000 0.000 - [place] 0.000 [facility] x10(3)/[facility] LABORATORY Specimen Anatomical Collection Method Collection Time Receive d Time (Source) Location / / Volume Laterality Blood 05/31/2022 9:17 PM 9:25 EDT PM EDT Resulting Agency Comment Spec In Lab Arpita Valle MD HEMATOLOGY ORDERABLES Performing Organization Address City/State/[place] [address] Transfuse RBC (05/31/2022 7:36 PM EDT) Regina Hinds MD NURSING TREATMENT ORDERABLES - BLOOD ADMIN Transfuse RBC (05/31/2022 7:36 PM EDT) Regina Hinds MD NURSING TREATMENT ORDERABLES - BLOOD ADMIN UPPER GI ENDOSCOPY (05/31/2022 3:37 PM EDT) Component Value Ref Test Analysis Performed At [facility] Range Method Time Signature UPPER GI [facility] PROVATION ENDOSCOPY Endoscopy Procedure Date: 05/31/2022 3:37 PM ? Patient Name: Koko Zamora ? Date of : 1940 ? Age: 81 ? Order #: [id number] ? Instrument Name: [id number] ? Procedure: ? Upper GI endoscopy Indications: [...] Procedure Code(s): ? --- Professional --- ? 18022, Esophagogastroduode noscopy, ? flexible, transoral; with control [...] stomach ? and duodenum CPT copyright 2021 [employer]. All rights reserved. The codes documented in this report are preliminary and upon physician coder review may be revised to meet [...] who have questions please contact the health medicare nurse that requested your imaging first. ? Narrative 05/31/2022 2:39 PM EDT EXAMINATION: CT ABDOMEN AND PELVIS WWO CONTRAST (GI BLEED) CLINICAL HISTORY: Significant Hb drop. U nknown source. has had a [facility] with stent placed and revascularization of left [...] enlarged lymph nodes. Vasculature: Patent common iliac, store loss prevention manager al iliac, and common femoral arteries bilaterally. [...] enlarged lymph nodes. Vasculature: Patent common iliac, store loss prevention manager al iliac, and common femoral arteries bilaterally. [...] ho have questions please contact the health medicare nurse that requested your imaging first. Regina Hinds MD G CT ORDERABLES Type and Screen Validity (05/31/2022 1:43 PM EDT) [facility] gist Method Time Signature T&S only valid [facility] at [facility] LABORATORY Comment: This Type and Screen result is only valid at the [facility] Specimen Anatomical Collection Method Collection Time Receive d Time (Source) Location / / Volume Laterality Blood 05/31/2022 1:43 PM 2 1:57 EDT PM EDT Resulting Agency Comment Spec In Lab Regina Hinds MD BLOOD BANK ORDERABLES Performing Organization Address City/State/[place] [address] ABORH Recheck Status (05/31/2022 1:43 PM EDT) [facility] Method Time Signature ABORH Type Completed [facility] LABORATORY Specimen Anatomical Collection Method Collection Time Receive d Time (Source) Location / / Volume Laterality Blood 05/31/2022 1:43 PM 2 1:57 EDT PM EDT Resulting Agency Comment Spec In Lab Regina Hinds MD BLOOD BANK ORDERABLES Performing Organization Address City/[facility]/[place] [address] Antibody screen (05/31/2022 1:43 PM EDT) [facility] Signature Ab Screen Negative [facility] LABORATORY Expires at 06/03/2022 [facility] [id number] on: [facility] LABORATORY Specimen Anatomical Collection Method Collection Time Receive d Time (Source) Location / / Volume Laterality Blood 05/31/2022 1:43 PM 2 1:57 EDT PM EDT Resulting Agency Comment Spec In Lab Regina Hinds MD BLOOD BANK ORDERABLES Performing Organization Address City/[facility]/[place] [address] ABO/Rh Typing (05/31/2022 1:43 PM EDT) P athologist Signature ABORh Type O Pos [facility] LABORATORY Specimen Anatomical Collection Method Collection Time Receive d Time (Source) Location / / Volume Laterality Blood 05/31/2022 1:43 PM 2 1:57 EDT PM EDT Resulting Agency Comment Spec In Lab Regina Hinds MD BLOOD BANK ORDERABLES Performing Organization Address City/[facility]/[place] [address] Prepare RBC (05/31/2022 1:35 PM EDT) P athologist Signature Dispensed? Yes [facility] LABORATORY Specimen Anatomical Collection Method Collection Time Receive d Time (Source) Location / / Volume Laterality Blood 05/31/2022 1:35 PM 2 1:30 EDT PM EDT Regina Hinds MD BLOOD BANK ORDERABLES Performing Organization Address City/[facility] [place] [address] Prepare RBC (05/31/2022 1:25 PM EDT) P athologist Signature Dispensed? Yes [facility] LABORATORY Specimen Anatomical Collection Method Collection Time Receive d Time (Source) Location / / Volume Laterality Blood 05/31/2022 1:25 PM 2 1:23 EDT PM EDT Regina Hinds MD BLOOD BANK ORDERABLES Performing Organization Address [facility] Phon e Number [address] (ABNORMAL) Differential, Automated (05/31/2022 12:44 PM EDT) P athologist Signature Neutrophils % 62.0 % [facility] LABORATORY Neutr Abs (ANC) 4.71 1.70 - [facility] 6.10 [facility] x10(3)/[facility] LABORATORY Lymphocytes % 24.1 % [facility] LABORATORY Lymphocytes Abs 1.8 0.9 - 3.2 [facility] x10(3)/[facility] LABORATORY Monocytes % 10.8 % [facility] LABORATORY Monocyte Abs 0.8 0.3 - 0.9 [facility] x10(3)/[facility] LABORATORY Eosinophils % 1.6 % [facility] LABORATORY Eosinophils Abs 0.1 0.0 - 0.4 [facility] x10(3)/[facility] LABORATORY Basophils % 0.7 % [facility] LABORATORY Basophils Abs 0.0 0.0 - 0.1 [facility] x10(3)/[facility] LABORATORY Immature Gran % 0.80 % [facility] [...] Abs 0.06 (H) 0.00 - 0.04 x10(3)/[facility] LABORATORY Specimen Anatomical Collection Method Collection Time Receive d Time (Source) Location / / Volume Laterality Blood 05/31/2022 12:44 05/31/2022 PM EDT 12:57 PM EDT Resulting Agency Comment Spec In Lab Brittany Ramirez MD HEMATOLOGY ORDERABLES Performing Organization Address City/State/[place] [address] (ABNORMAL) Hemogram (05/31/2022 12:44 PM EDT) Analysis Performed At Patho logist Time Signature WBC 7.6 4.0 - 9.5 [facility] x10(3)/[facility] LABORATORY RBC 2.11 (L) 4.58 - [facility] XIAO 5.54 [facility] x10(6)/[facility] LABORATORY Hemoglobin 6.9 (L) 13.7 - [facility] 16.5 g/dL [facility] LABORATORY Hematocrit 20.8 (L) 40.5 - [facility] XIAO 48.5 % [facility] LABORATORY MCV 98.6 (H) 82.9 - [facility] 93.1 [facility] LABORATORY MCH 32.7 (H) 27.5 - [facility] X[place] 32.1 pg [facility] LABORATORY MCHC 33.2 32.0 - [facility] [place] 35.7 g/dL [facility] LABORATORY Platelets 255 145 - 357 [facility] x10(3)/[facility] LABORATORY RDWSD 47.7 (H) 36.0 - [facility] XIA[place] 45.0 [facility] LABORATORY RDWCV 13.4 11.4 - [facility] X[place] 13.8 % [facility] LABORATORY MPV 10.7 7.6 - 12.9 [facility] LABORATORY nRBC % Auto 0.0 % [facility] LABORATORY nRBC Abs Auto 0.000 0.000 - [facility] 0.000 [facility] x10(3)/[facility] LABORATORY Specimen Anatomical Collection Method Collection Time Receive d Time (Source) Location / / Volume Laterality Blood 05/31/2022 12:44 05/31/2022 PM EDT 12:57 PM EDT Resulting Agency Comment Spec In Lab Brittany Ramirez MD HEMATOLOGY ORDERABLES Performing Organization Address City/State/[place] [address] (ABNORMAL) BLOOD GAS 2 VENOUS (05/31/2022 11:24 AM EDT) P athologist Signature pH [place] 7.38 7.32 - [facility] 7.42 [facility] LABORATORY pCO2 [place] 40 (L) 41 - 51 [facility] LABORATORY pO2 [place] 18 (L) 25 - 40 [facility] LABORATORY HCO3 [place] 23.3 mmol/L [facility] LABORAT[facility] BE Marco Antonio -1.8 mmol/L [facility] LABORATORY Hgb Blood Gas 7.0 (L) 13.7 - [facility] 16.5 g/dL [facility] LABORATORY O2HB [place] 24.3 % [facility] [...] Whole Blood 3.9 3.5 - 5.0 mmol/L [facility] [...] Whole Blood 107 98 - 107 mmol/L [facility] LABORATORY Gluc Whole Bld 204 (H) 65 - 199 mg/dL [facility] LABORATORY Comment: Diabetes: >=200 mg/dL plus symp toms Lactate WB 1.4 0.5 - 2.2 mmol/L [facility] LABORATORY BGas Source Venous [facility] LABORATORY Specimen Anatomical Collection Method Collection Time Receive d Time (Source) Location / / Volume Laterality Blood 05/31/2022 11:24 05/31/2022 AM EDT 11:24 AM EDT Regina Hinds MD CHEMISTRY ORDERABLES Performing Organization Address City/[facility]/ZIP Code Phon e Number [address] TSH [place] (05/31/2022 11:20 AM EDT) P athologist Signature TSH 1.67 0.27 - 4.20 [facility] mcIU/mL [facility] LABORATORY Comment: Reference Interval (mcIU/mL): Females: ??First Trimester: 0.23-3.88 ??Second Trimester: 0.22-3.90 ??Third Trimester: 0.44-4.66 Specimen Anatomical Collection Method Collection Time Receive d Time (Source) Location / / Volume Laterality Blood 05/31/2022 11:20 05/31/2022 AM EDT 11:28 AM EDT Resulting Agency Comment Spec In Lab Regina Hinds MD CHEMISTRY ORDERABLES Performing Organization Address City/[facility]/ZIP Code Phon e Number [address] XR Chest PA & [...] who have questions please contact the health medicare nurse that requested your imaging first. ? Electronically signed by: Alan strong MD, [facility] ([phone]), at 05/31/2022 11:33 AM Narrative 05/31/2022 11:33 [...] ho have questions please contact the health medicare nurse that requested your imaging first. Electronically signed by: Alan strong MD, [facility] ([phone]), at 05/31/2022 11:33 AM Regina Hinds MD IMG DX ORDERABLES Lipase (05/31/2022 10:50 AM EDT) athologist Signature Lipase 41 0 - 60 [facility] unit/L [facility] LABORATORY Specimen Anatomical Collection Method Collection Time Receive d Time (Source) Location / / Volume Laterality Blood Venous Draw / 05/31/2022 10:50 05/31/2022 Unknown AM EDT 11:11 AM EDT Resulting Agency Comment Spec In Lab Zain Champion MD CHEMISTRY ORDERABLES Performing Organization Address City/State/ZIP Code Phon e Number [place] [id number] HOSPITAL LABORATORY Drive (ABNORMAL) Hepatic Function Panel (05/31/2022 10:50 AM EDT) Analysis Performed At Patho logist Time Signature Total Protein 6.4 6.1 - 8.0 [place] [place] g/dL [facility] LABORATORY Albumin 4.1 3.2 - 5.2 [place] [place] g/dL [facility] LABORATORY AST 24 0 - 39 [place] [place] unit/L [facility] LABORATORY ALT 44 0 - 55 [place] [place] unit/L [facility] LABORATORY Alk Phos 63 40 - 130 [place] [place] unit/L [facility] LABORATORY Total <0.2 (L) 0.2 - 1.3 [facility] [place] Bilirubin mg/dL [facility] LABORATORY Bili, Direct 0.1 0.0 - 0.3 [place] mg/dL [facility] LABORATORY Specimen Anatomical Collection Method Collection Time Receive d Time (Source) Location / / Volume Laterality Blood Venous Draw / 05/31/2022 10:50 05/31/2022 Unknown AM EDT 11:11 AM EDT Resulting Agency Comment Spec In Lab Zain Champion MD CHEMISTRY ORDERABLES Performing Organization Address City/[facility]/ZIP Code Phon e Number [address] Blue Tube HOLD (05/31/2022 10:50 AM EDT) athologist Signature Blue Hold Sample in [facility] LABORATORY Specimen Anatomical Collection Method Collection Time Receive d Time (Source) Location / / Volume Laterality Blood Venous Draw / 05/31/2022 10:50 05/31/2022 Unknown AM EDT 11:05 AM EDT Brittany Ramirez MD HEMATOLOGY ORDERABLES Performing Organization Address City/[facility]/ZIP Code Phon e Number [address] (ABNORMAL) Differential, Automated (05/31/2022 10:50 AM EDT) athologist Signature Neutrophils % 66.9 % [facility] LABORATORY Neutr Abs (ANC) 5.58 1.70 - [facility] 6.10 [facility] x10(3)/[facility] LABORATORY Lymphocytes % 22.2 % [facility] LABORATORY Lymphocytes Abs 1.8 0.9 - 3.2 [facility] x10(3)/[facility] LABORATORY Monocytes % 7.8 % [facility] LABORATORY Monocyte Abs 0.6 0.3 - 0.9 [facility] x10(3)/[facility] LABORATORY Eosinophils % 1.2 % [facility] LABORATORY Eosinophils Abs 0.1 0.0 - 0.4 [facility] x10(3)/[facility] LABORATORY Basophils % 0.7 % [facility] LABORATORY Basophils Abs 0.1 0.0 - 0.1 [facility] x10(3)/[facility] LABORATORY Immature Gran % 1.20 % [facility] LABORATORY Comment: Immature granulocytes(IG's)percentage an d absolute count will include metamyelocytes, myelocytes, and promyelo cytes. Blood smears from CBCs yielding IG's will be scanned manually for tracy armstrong. If this scan disagrees with the automated IG or if promyelocytes are not ed, a manual differential will be performed. Rain Gran Abs 0.10 (H) 0.00 - 0.04 x10(3)/[facility] LABORATORY Specimen Anatomical Collection Method Collection Time Receive d Time (Source) Location / / Volume Laterality Blood 05/31/2022 10:50 05/31/2022 AM EDT 11:03 AM EDT Resulting Agency Comment Spec In Lab Brittany Ramirez MD HEMATOLOGY ORDERABLES Performing Organization Address City/State/[place] [address] (ABNORMAL) Hemogram (05/31/2022 10:50 AM EDT) Analysis Performed At Patho logist Time Signature WBC 8.3 4.0 - 9.5 [facility] x10(3)/[facility] LABORATORY RBC 2.26 (L) 4.58 - [facility] 5.54 [facility] x10(6)/[facility] LABORATORY Hemoglobin 7.4 (L) 13.7 - [facility] 16.5 g/dL [facility] LABORATORY Hematocrit 22.3 (L) 40.5 - [facility] 48.5 % [facility] LABORATORY MCV 98.7 (H) 82.9 - [facility] 93.1 [facility] LABORATORY MCH 32.7 (H) 27.5 - [facility] XIAO 32.1 pg [facility] LABORATORY MCHC 33.2 32.0 - [facility] 35.7 g/dL [facility] LABORATORY Platelets 283 145 - 357 [facility] x10(3)/[facility] LABORATORY RDWSD 47.0 (H) 36.0 - [facility] [place] 45.0 [facility] LABORATORY RDWCV 13.4 11.4 - [facility] 13.8 % [facility] LABORATORY MPV 10.8 7.6 - 12.9 [facility] LABORATORY nRBC % Auto 0.0 % [facility] LABORATORY nRBC Abs Auto 0.000 0.000 - [place] 0.000 [facility] x10(3)/[facility] LABORATORY Specimen Anatomical Collection Method Collection Time Receive d Time (Source) Location / / Volume Laterality Blood 05/31/2022 10:50 05/31/2022 AM EDT 11:03 AM EDT Resulting Agency Comment Spec In Lab Brittany Ramirez MD HEMATOLOGY ORDERABLES Performing Organization Address City/State/ZIP Code Phon e Number [address] Phosphorus (05/31/2022 10:50 AM EDT) P athologist Signature Phosphorus 3.2 2.5 - 4.5 [place] mg/dL [facility] LABORATORY Specimen Anatomical Collection Method Collection Time Receive d Time (Source) Location / / Volume Laterality Blood 05/31/2022 10:50 05/31/2022 AM EDT 11:03 AM EDT Resulting Agency Comment Spec In Lab Regina Hinds MD CHEMISTRY ORDERABLES Performing Organization Address City/State/ZIP Code Phon e Number [address] Magnesium (05/31/2022 10:50 AM EDT) P athologist Signature Magnesium 0.93 0.69 - 1.07 [place] mmol/L [facility] LABORATORY Specimen Anatomical Collection Method Collection Time Receive d Time (Source) Location / / Volume Laterality Blood 05/31/2022 10:50 05/31/2022 AM EDT 11:03 AM EDT Resulting Agency Comment Spec In Lab Regina Hinds MD CHEMISTRY ORDERABLES Performing Organization Address City/State/[place] [address] (ABNORMAL) pro-Brain Natriuretic Peptide (05/31/2022 10:50 AM EDT) P athologist Signature ProBNP 1,077 (H) <=449 [place] pg/mL [facility] LABORATORY Specimen Anatomical Collection Method Collection Time Receive d Time (Source) Location / / Volume Laterality Blood 05/31/2022 10:50 05/31/2022 AM EDT 11:03 AM EDT Resulting Agency Comment Spec In Lab Regina Hinds MD CHEMISTRY ORDERABLES Performing Organization Address City/[facility]/[place]IP [place] [address] Troponin (05/31/2022 10:50 AM EDT) athologist Signature Troponin-T <0.01 0.00 - 0.00 [facility] ng/mL [facility] LABORATORY Comment: The 99th percentile for Troponin T is le ss than 0.01 ng/mL, any detectable cTnT concentration using this assay should be considered elevated. According to the third universal definit ion of myocardial infarction the following criteria with a clinical prese ntation consistent with acute myocardial ischemia meets the diagnosis for a myocardial infarction (AL). Detection of a rise and/or fall of [...] additional sample may be indicated. Reference: Third [place] Definition of Myocardial Infarction. Journal of the [place] [employer] 2012;60:1581-98 Specimen Anatomical Collection Method Collection Time Receive d Time (Source) Location / / Volume Laterality Blood 05/31/2022 10:50 05/31/2022 AM EDT 11:03 AM EDT Resulting Agency Comment Spec In Lab Regina Hinds MD CHEMISTRY ORDERABLES Performing Organization Address City/[facility]/[place] [address] (ABNORMAL) Basic Metabolic Panel (non-fasting) (05/31/2022 10:50 AM EDT) athologist Signature Glucose Lvl 223 (H) 65 - 199 [facility] mg/dL [facility] LABORATORY Comment: Diabetes: >=200 mg/dL plus symp toms BUN 39 (H) 10 - 20 mg/dL [facility] LABORATORY Creatinine 0.91 0.80 - 1.50 mg/dL [facility] LABORATORY Sodium 140 135 - 145 mmol/L [facility] LABORATORY Potassium 4.1 3.5 - 5.0 mmol/L [facility] [...] 15 mmol/L [facility] LABORATORY Calcium 9.1 8.5 - 10.5 mg/dL [facility] LABORATORY Estimated GFR 86 >=60 mL/min/1.73 [...] Organization Address City/State/[place] [address] EKG 12 Lead (05/31/2022 10:11 AM EDT) Component Value Ref Range Test Analysis Performed Pathologis t Method Time At Signature Ventricular rate 106 BPM MUSE SYSTEM QRS Duration 122 ms MUSE SYSTEM Q-T Interval 368 ms MUSE SYSTEM QTC Calculated 488 ms MUSE SYSTEM (Bezet) Calculated R [place] -43 degrees MUSE SYSTEM Calculated T [place] 109 degrees MUSE SYSTEM INTERPRETATION Atrial fibrillation [...] erpretation Confirmed by fellow MD Mike, [place] ([id number]) on 022 8:36:21 PM Confirmed by MD [...] PROTOCOL, Starting on Fri05/31/22 at 2013, Until [place] 06/02/22 at 1702, Per Pro tocol, START [...] CONTINUOUS, Starting on Fri05/31/22 at 2015, Until [place] 06/02/22 at 1702, Begin infusion at 950 [...] (Lidoderm) 5% patch 2 patch(Linked Group 1) 7805 (Patch Applied - Provider: Raven Barbour RN [...] RN)0710 (New Bag - Provider: Raven Barbour RN)1909 (Stopped - Provider: Maranda Ribeiro RN) 0-5,000 [...] - Less than 0.1 international unit/mL: Ad cryptologic supervisor PRN bolus and increase rate by [...]
Routine documented in this encounter Care Teams Loadmaster Relationship Specialty Start Date End Date Bobby Das MD PCP - General 10/02/[address] [place] [address] [place] [phone] documented as of this encounter
--- OUTSIDE RECORDS SUMMARY | 2022-07-17 10:37 | XMS_ITS | Encounter Summary ---
:1940 Author Organization [facility] [place] [address] Care Team Providers Name Role Phone Bobby Das MD Primary Care Provider Encounter Details Date Type Department Care Team Description 05/28/2022 Telephone Vascular Surgery at [facility] Dominique Bolivar, [place] [phone] Social History Tobacco Use Types Packs/Day [...] RN - 05/28/2022 1:20 PM EDT This continuity writer returned phone call due to 's [...] cardiac history and symptoms of lightheadedness, this continuity writer recommended the patient be evaluated. Discussed going to local ED ([facility]) where staff could also phone vascular and/or cardiac at [facility] for planning. The patient agreed to do this after he has lunch. documented in this encounter Plan of Treatment Upcoming Encounters Date Type Specialty Care Team Description 08/08/2022 Office Visit Gastroenterology Negra Collins MD [facility] GASTROENTEROLOGY DEPT [place], [place] [address] (Wo rk) 09/05/2022 Appointment Cardiology Trinity Reid MD [facility] CARDIOLOGY [place], [place] [address] (Wo rk) 09/05/2022 Office Visit Cardiology Trinity Reid MD [facility] CARDIOLOG[facility] [place], [place] [address] (Wo rk) documented as of this encounter Visit Diagnoses Not on filedocumented in this encounter Care Teams Cnc Mechanic Relationship Specialty Start Date End Date Bobby Das MD PCP - General 10/02/[address] [place] [address] [place] [phone] documented as of this encounter
--- OUTSIDE RECORDS SUMMARY | 2022-07-17 10:38 | XMS_ITS | Encounter Summary ---
:1940 [place] [address] Care Team Providers Name Role Phone Bobby Das MD Primary Care Provider Reason for Visit Reason Comments Left Leg Pain Auth/Cert Specialty Diagnoses / Procedures Referred By Contact Refer red To Contact Diagnoses Limb ischemia LLE thrombus Fito Summers MD [facility] [place] [address] Referral ID Status Reason Start Date Expiration Date Visits Requ ested Visits Authorized [id number] 1 1 Encounter Details Date Type Department Care Team Description 05/15/2022 Surgery Main Operating Room Savana Summers se, [facility] FEMOROPOSANG, [facility] VASCULAR SURG JULIAN [place] [address] [place] ([place] [address] 19.48) [phone] Social History Tobacco Use Types Packs/Day Years [...] onset Afib who presents in transfer from [facility] with acute limb ischemia [...] emergently went to the OR for L FISCAL AGENT transverse arteriotomy and primary repair, thromboembolectomy of L SFA/PFA/FISCAL AGENT, reperfusion venous drainage for 250 cc, [...] Discharge Condition: Good Discharge to: Home with [facility] [address] [address] Future Appointments and Orders Future Appointments and Orders Future Appointments Provider Department Dept Phone 05/23/2022 10:30 AM Loretta Cohen MD Dermatology at [facility] Arrive at: Connie Cleaner [address] [place] [address] 06/07/2022 1:30 PM Gail Rae APRN Vascular Surgery at [facility] Arrive at: Connie Cleaner Area [phone] 06/13/2022 7:30 AM Edson Lagos [place] Vascular Lab at [facility] Arrive at: Connie Cleaner Area [phone] 06/13/2022 8:00 AM Fito Summers MD Vascular Surgery at [facility] Arrive at: Connie Cleaner Area 3V [phone] 06/13/2022 10:00 AM Alan Reid MD Cardiology at [facility] Arrive at: Connie Cleaner Area 4A [phone] Future Orders Complete By Expires Ziopatch 48 Hrs-15 Days [HFH0197 CPT(R)] 05/21/2022 11/20/2022 Process Instructions: Scheduling Instructions: Comments: Questions: Does the patient have a pacemaker? If yes provide HI/LO settings: Apply for 7 or 14 days?: 7 Where will study be performed?: [facility] Clinics JOSSELYN, legs, multiple levels [VAS8 Custom] 06/21/2022 (Approximate) 12/21/2022 Process Instructions: There is no in-house vascular photo lab technician available on weeknights (5pm-8am), weekends, or holidays. IF THIS IS A REQUEST FOR AN EMERGENT STUDY DURING THOSE HOURS, please have the senior provider responsible for the patient page the Vascular Surgery Fellow/Senior Resident aeronautical engineering professor to discuss options. Scheduling Instructions: Questions: Indication for study/signs & symptoms: ALI s/p L fem cutdown with thromboembolectomy Question to be answered: Perfusion to feet? Please check toe pressure Preferred location?: [facility] Referral to Cardiology [REF12 Custom] As directed [...] for admission to Home Health. [address] [facility] [address] (home) Date of : 1940 Inpatient DOCUMENTATION FOR VNA SERVICES (INCLUDING THOSE PATIENTS WITH MEDICARE COVERAGE REQUIRING HOME VNA SERVICES AND/OR HOSPICE SERVICES) PATIENT'S LOCATION: Koko Zamora [address] [facility] [address] (home) Cell: No relevant phone numbers on file. Track Patrol's Name: Koko In discussion with the attending physician, it is certified that this patient is under their care and that they, or a Nurse Practitioner,Clinical Nurse specialist or Physician Acetone Recovery Worker who is working directly with them, had [...] for managing ADL's. HOME HEALTH CARE AGENCY: [facility] [address] [place] [address] Start of care: Within 24 to 48 [...] obtained from this patient'sPCP: Bobby Das MD [address] [place] [address] / [place] [address] All VNA agencies which cover the [...] For any problems or questions please call [phone] For issues on weeknights after 5pm and weekends please call [phone] and ask for the Vascular Fellow aeronautical engineering professor. JOSEE Santiago Vascular Surgery 05/21/2022 documented in [...] For any problems or questions please call [phone] For issues on weeknights after 5pm and weekends please call [phone] and ask for the Vascular Fellow aeronautical engineering professor. documented in this encounter Medications at Time [...] 04/12/20 21 (FLONASE) 50 mcg/actuation Nare route [place], Suspension daily as needed. fluorouraciL (EFUDEX) 5 [...] onset Afib who presents in transfer from [facility] with acute limb ischemia [...] status, full code. JOSEE Santiago 05/21/2022 Pager: [phone] PaBrannon gamino, PT - 05/21/2022 10:35 AM [...] plan as stated. Time IN / OUT: 0979-7898 Total Minutes, Physical Therapy: 25 Billing Code: 2 TA Brannon Isaacs DPT Pager: [phone] Physical Therapy Inpatient Rehabilitation Department [place] Jean [...] and plan of care per Dr. Mcnamara (stopping builder). Please refer to her note above for [...] limb ischemia (thromboembolic) and he is a detention smoker (1/2 ppd, recommend nicotine patch). His [...] to Hosp-Admission (Current) from 05/15/2022 in 4 [facility] Office Visit from 04/17/2021 in Pain and [...] findings andplan of care per Dr. Mcnamara (stopping builder). Please refer to her note above for [...] onset Afib who presents in transfer from [facility] with acute limb ischemia [...] management following Dottie Hill APRN 05/20/2022 Pager: [phone] Laney Atkins RN - 05/20/2022 1:14 AM EDT Pt Koko transferred to room from [facility]. A&Ox4, oriented to room and call boo. Masimo and telemetry placed. In agreement with assessment as documented this evening by Nuris ASHLEY. No complaints at this time. Pt aware of NPO status and plan for cardiac cath in AM. Urinal provided. Resting comfortably in bed. Nuris Lester RN - 05/20/2022 1:09 AM EDT Pt. Transferred to [facility]. RN accompanied patient to floor and handed off to [facility] RN Dottie Hill APRN - 05/19/2022 10:02 AM EDT Vascular Surgery Progress Note Koko Zamora is a 81 y.o. male with w new onset Afib who presents in transfer from [facility] with acute limb ischemia [...] management following Dottie Hill APRN 05/19/2022 Pager: [phone] Emily Sauceda RN - 05/19/2022 6:28 AM EDT OUTCOME EVALUATION NOTE: OUTCOME SUMMARY: Patient AOx4, VSS on RA. Afib on tele. HR controlled w/ PRN metop, given x2. Denies CP, SOB, n/v. See flowsheets for NVC. Dressings to LLE CDI, prevena WV to groin intact. Voiding to urinal. LBM SUBSTATION DESIGNER, patient stating he will maybe try the [...] adequately without difficulty to bedside urinal. LBM SUBSTATION DESIGNER. Up to chair this AM with nursing staff. Worked with PT, tolerated well. Diet changed to regular at 1800.Plan is for cardiac cath on Friday. PLAN MOVING FORWARD: Bleeding precautions Pain management neurovascular checks PT/OT laboratory scientist INDIVIDUALIZED FALL PREVENTION INTERVENTIONS: Patient-specific fall [...] onset Afib who presents in transfer from [facility] with acute limb ischemia [...] mL Intravenous BID ??? PHENobarbitaL 0.12 mg/kg/dose (Aspen) Oral BID ??? thiamine 100 mg Oral [...] management following Dottie Hill APRN 05/18/2022 Pager: [phone] Brannon Isaacs, PT - 05/18/2022 10:00 AM [...] Chisholm MD [facility] INTERVENTIONL RAD ??? PRO EMBLC/THRMBC FEMORAL POPLITEAL AORTO-ILIAC ARTERY Left 05/15/2022 EMBOLECTOMY OR THROMBECTOMY, FEMOROPOPLITEAL, AORTOILIAC ARTERY BY LEG INCISION (WRVU 19.48) performed by Fito Summers MD at [facility] MAIN OR Social History: Pt [...] in this evaluation. Time IN / OUT: 2947-4409 Total Minutes, Physical Therapy: 30 Billing Code: Basilio Isaacs, PT Pager: [phone] Physical Therapy Inpatient Rehabilitation Department Emily Sauceda RN - 05/18/2022 4:34 AM EDT OUTCOME EVALUATION NOTE: OUTCOME SUMMARY: Patient AOx4, VSS on 2LNC. Afib on tele. HR above 120, MD aware, PRN IV metop given x1, HR returned to 90's-low 100's. Denies CP, SOB, n/v. See flowsheets for NVC. Dressings to LLE CDI, prevena WV to groin intact. Voiding to urinal. LBM SUBSTATION DESIGNER. Heparin gtt therapeutic. Pain controlled. Patient sleeping [...] adequately without difficulty to bedside urinal. LBM SUBSTATION DESIGNER. Patient not OOB this shift. Currently NPO awaitingprocedure in clinical laboratory director. PLAN MOVING FORWARD: Bleeding precautions Pain management neurovascular checks PT/OT NPO for clinical laboratory director INDIVIDUALIZED FALL PREVENTION INTERVENTIONS: Patient-specific fall risk [...] the Emergency Department as a transfer from [facility] with left lower extremity limb ischemia. He went to [facility] and was startedon heparin and transferred to [facility] for evaluation by vascular surgery with subsequent [...] he will will be going to the clinical laboratory director for evaluation. Will defer PT eval at present but will see as ordered post cardiac catheritizaton. Social Hx:Pt lives with his Ursula in [place], [place] in a 2 level home in [...] WBAT LLE LISBET HERMAN PT Pager # [phone] In-Pt Rehab Medicine Dottie Hlil APRN - 05/17/2022 7:42 AM EDT Vascular Surgery Progress Note Koko Zamora is a 81 y.o. male with w new onset Afib who presents in transfer from [facility] with acute limb ischemia [...] mL Intravenous BID ??? PHENobarbitaL 0.24 mg/kg/dose (Aspen) Oral BID Followed by ??? [START ON 05/18/2022] PHENobarbitaL 0.12 mg/kg/dose (Aspen) Oral BID ??? thiamine 100 mg Oral [...] management following Dottie Hill APRN 05/17/2022 Pager: [phone] Sary Dos Santos, RN - 05/17/2022 12:16 [...] onset Afib who presents in transfer from [facility] with acute limb ischemia [...] mL Intravenous BID ??? PHENobarbitaL 0.48 mg/kg/dose (Aspen) Oral BID Followed by ??? [START ON 05/17/2022] PHENobarbitaL 0.24 mg/kg/dose (Aspen) Oral BID Followed by ??? [START ON 05/18/2022] PHENobarbitaL 0.12 mg/kg/dose (Aspen) Oral BID ??? thiamine 100 mg Oral [...] management following Edward Rodríguez MD 05/16/2022 Pager: [phone] Sary Dos Santos RN - 05/16/2022 12:52 [...] 2129 Hand off to DION Ramirez 3 elmer documented in this encounter H&P Notes Kerry [...] onset Afib who presents in transfer from [facility] with acute limb ischemia [...] MD [facility] INTERVENTIONL RAD Social Hx: Social [...] Refill ??? fluticasone propionate (FLONASE) 50 mcg/actuation [place], Suspension as needed. ??? fluorouraciL (EFUDEX) 5 [...] and consented. Tim Chicas MD 05/15/2022 Pager: [phone] documented in this encounter ED Notes Lc Harris PA - 05/15/2022 1:20 PM EDT ED Provider Note HPI: Koko Zamora is a 81 y.o. male with history of atrial fibrillation not on anticoagulation, and GI bleeding who presents to the Emergency Department as a transfer from [facility] with left lower extremity limb ischemia. Patient says that the symptoms started roughly 630 this morning when he developed severe pain in his left lower extremity. He went to [facility] and was started on heparin and transferred to [facility] for evaluation by vascular surgery. Review of [...] src: Oral SpO2: 94 % O2 Device: [place] O2 Flow Rate (L/min): 2 L/min Physical [...] lower extremity earlier today and went to [facility] where it was determined that he had ischemia of the left lower extremity. Vascular surgery [facility] was contacted and he was transferred [...] in an outpatient cardiac rehabilitation program at [facility] was discussed. Patient agrees to a referral to this program. Timing will depend on his recovery from Vascular surgery. He is going home w/VNA PT. I gave him the brochure for the program at [facility] for future reference. Care [...] information for follow-up Home Health & Hospice, [place] [address] [place] [address] Transportation: family or friend will provide Functional [...] Type: *No Product type* / Secondary Insurance: [facility] Prescription Coverage: Yes This plan was formulated with input from patient and team. All are in agreement with plan. [facility] for initial IMM. Shawn (Satish) DION López RN/CM - Cellphone: [phone] Pager: [phone] Covering Service RN/CM Plan of Care - [...] catheterization, transferred in hospital bed accompanied by Manager Utilization RN, remains on telemetry monitoring. Heparin gtt [...] Type: *No Product type* / Secondary Insurance: [facility] Last Physical Therapy Recommendation: home with [...] Office of Care Management letter from the Music Composition Teacher pertaining to rehab referrals. ?? provide a letter describing our affiliations within the [facility] and educate about their right to choose where referrals are sent. ?? provide a list of Home Health Agencies / Durable Medical Equipment vendors which serve their preferred geographic area. ?? provided patient with [facility] Star Quality Rating handout. They have requested referrals to: [facility]. [address] [place] [address] Note routed to a Television Analyzer who will communicate referrals to facilities and provide any required information. Transportation: family or friend will provide Barriers to discharge: None Plan going forward: Patient is going for a cardiac cath today and plan will come from there. Patientwas recently seen by PT and they recommend VNA at time of discharge. [facility] was routed and pendedat this time. Care Management will continue to follow and assist with discharge planning and coordination of care as indicated. Anticipated Date of Discharge: 05/21/2022 Nataly RICHMOND RN Phone: [phone] Pager: [phone] Plan of Care - Laney Atkins RN [...] not included. [facility] [place] [address] [address] INPATIENT CARDIOLOGY CONSULT NOTE Date of Consultation: [...] LLE pain on 05/15 and presented to [facility], where he was started on [...] Marshall MD [facility] INTERVENTIONL RAD IR VERTEBROPLASTY LUMBAR MULTIPLE LEVELS 07/20/2019 IR Vertebroplasty Lumbar Multiple Levels 07/20/2019 Bobby Marshall MD [facility] INTERVENTIONL RAD IR VERTEBROPLASTY THORACIC SINGLE LEVEL 10/25/2020 IR Vertebroplasty Thoracic Single Level 10/25/2020 Matt Chisholm MD [facility] INTERVENTIONL RAD PRO EMBLC/THRMBC FEMORAL POPLITEAL AORTO-ILIAC ARTERY Left 05/15/2022 EMBOLECTOMY OR THROMBECTOMY, FEMOROPOPLITEAL, AORTOILIAC ARTERY BY LEG INCISION (WRVU 19.48) performed by Fito Summers MD at [facility] MAIN OR Allergies Allergen Reactions Aspirin Other (See Comments) GI bleed Out-Patient Medications: Medications Prior to Admission Medication Sig Dispense Refill Last Dose fluorouraciL (EFUDEX) 5 % Cream daily. CRESTOR 40 mg Tablet Take 40 mg by mouth daily. fluticasone propionate (FLONASE) 50 mcg/actuation [place], Suspension as needed. ascorbic acid, vitamin C, [...] 5 mL Intravenous BID PHENobarbitaL 0.24 mg/kg/dose (Aspen) Oral BID Followed by [START ON 05/18/2022] PHENobarbitaL 0.12 mg/kg/dose (Aspen) Oral BID thiamine 100 mg Oral Daily folic acid 1,000 mcg Oral Daily multivitamin with minerals 1 tablet Oral Daily heparin (porcine) infusion 1,200 Units/hr (05/17/22 3612) Family History: No family history on file. [...] to Hosp-Admission (Current) from 05/15/2022 in 3 [facility] Office Visit from 04/17/2021 in Pain and [...] continue to follow Anne-Marie Larson MD Pager [phone] Clinic: [phone] 05/17/22 6:22 PM Initial Assessments - Ifrah [...] [facility] must abide by [place] law. The hierarchy [...] The agent with financial power of commercial attorney or a conservator appointed in accordance [...] raised toilet seat Home Address confirmed as: [address] [place] [address] Social & Family Supports: All names listed below confirmed with patient as Incorrect. Will notify toni to correct. Wifes address is same as and phone is [phone]. Extended Emergency Contact Information Primary Emergency Contact: Ursula Zamora Address: [address] [place] [address] [address] [place] [address] [facility] Relation: Spouse Current Care Provided [...] Type: *No Product type* / Secondary Insurance: [facility] Prescription Coverage: Yes Preferred Pharmacy: [id number] - [place], [place] - [address] [facility] [address] [facility] [address] [facility] - [place], [place] - [address] [facility] [address] [facility] [address] [place] Status: Patient is a : unable to assess Primary Care Provider: Bobby Das MD [phone] Patient/Caregiver Goals of Treatment: to walk again Potential Needs for Transition of Care: none noted per 05/16 IDR Transportation: family will provide Transportation Anticipated: family or friend will provide Concerns to be Addressed: no discharge needs identified Assessment: Patient is admitted to vascular surg service for left lower extremity limb ischemia Plan: Per PT OT recommendations . Has used [facility] in the past. A member of the Care Management team will continue to monitor progress, follow for continuity of care and assist with transition of care planning. Ifrah Bell RN BSN Business Support SpecialistAdjustment Examiner of Care Management Pager [phone] Brief Op Note - Erin Garza MD - 05/15/2022 5:04 PM EDT Brief Operative Note Patient Name: Koko Zamora : [id number] MR#: [id number] Case Date: 05/15/2022 Surgeon: Surgeon(s) and Role: [...] Garza MD - 05/15/2022 2:08 PM EDT [facility] Operative Note Patient Name: Koko Zamora : [id number] MR#: [id number] Case Date: 05/15/2022 Surgeon: Surgeon(s) and Role: [...] Collins MD [facility] GASTROENTEROLOGY DEPT [place], [place] [address] (Wo rk) 09/05/2022 Appointment Cardiology Trinity Reid MD [facility] CARDIOLOGY [place], [place] [address] (Wo rk) 09/05/2022 Office Visit Cardiology Trinity Reid MD [facility] CARDIOLOGY [place], [place] [address] (Wo rk) Scheduled Referrals Name [...] Component Value Ref Test Analysis Performed At [facility] Range Method Time Signature VB Text Department: Vascular Surgery Lab VASCUBASE Report Patient: [id number] (KOKO ZAMORA) CPT: 71535 Referring Physician: FITO SUMMERS ?? Phone: Indications: s/p L FISCAL AGENT endart. Diabetes mellitus: no Findings: Right [...] P athologist Signature Heparin UFH 0.42 IU/mL [facility] LABORATORY Comment: Heparin (anti-Xa) levels should be [...] Organization Address City/State/[place] [address] Differential, Automated (05/21/2022 6:15 AM EDT) P athologist Signature Neutrophils % 58.8 % [facility] LABORATORY Neutr Abs (ANC) 3.97 1.70 - [facility] 6.10 [facility] x10(3)/[facility] LABORATORY Lymphocytes % 25.2 % [facility] LABORATORY Lymphocytes Abs 1.7 0.9 - 3.2 [facility] x10(3)/[facility] LABORATORY Monocytes % 12.9 % [facility] LABORATORY Monocyte Abs 0.9 0.3 - 0.9 [facility] x10(3)/[facility] LABORATORY Eosinophils % 2.1 % [facility] LABORATORY Eosinophils Abs 0.1 0.0 - 0.4 [facility] x10(3)/[facility] LABORATORY Basophils % 0.4 % [facility] LABORATORY Basophils Abs 0.0 0.0 - 0.1 [facility] x10(3)[facility] LABORATORY Immature Gran % 0.60 % ST. [...] Abs 0.04 0.00 - 0.04 x10(3)/[facility] LABORATORY Specimen Anatomical Collection Method Collection Time Receive d Time (Source) Location / / Volume Laterality Blood 05/21/2022 6:15 AM 2 6:38 EDT AM EDT Resulting Agency Comment Spec In Lab Edward Rodríguez MD HEMATOLOGY ORDERABLES Performing Organization Address City/State/[place] [address] (ABNORMAL) Hemogram (05/21/2022 6:15 AM EDT) [facility] gist Method Time Signature WBC 6.8 4.0 - 9.5 [facility] x10(3)/[facility] LABORATORY RBC 3.59 (L) 4.58 - [facility] 5.54 [facility] x10(6)/[facility] LABORATORY Hemoglobin 11.8 (L) 13.7 - [facility] 16.5 g/dL [facility] LABORATORY Hematocrit 34.5 (L) 40.5 - [facility] 48.5 % [facility] LABORATORY MCV 96.1 (H) 82.9 - [facility] 93.1 [facility] LABORATORY MCH 32.9 (H) 27.5 - [facility] 32.1 pg [facility] LABORATORY MCHC 34.2 32.0 - [facility] 35.7 g/dL [facility] LABORATORY Platelets 198 145 - 357 [facility] x10(3)/[facility] LABORATORY RDWSD 44.9 36.0 - [facility] 45.0 [facility] LABORATORY RDWCV 12.6 11.4 - [facility] 13.8 % [facility] LABORATORY MPV 10.0 7.6 - 12.9 [facility] LABORATORY nRBC % Auto 0.3 % [facility] LABORATORY nRBC Abs Auto 0.020 (H) 0.000 - [facility] 0.000 [facility] x10(3)/[facility] LABORATORY Specimen Anatomical Collection Method Collection Time Receive d Time (Source) Location / / Volume Laterality Blood 05/21/2022 6:15 AM 2 6:38 EDT AM EDT Resulting Agency Comment Spec In Lab Edward Rodríguez MD HEMATOLOGY ORDERABLES Performing Organization Address City/State/[place] [address] EKG 12 Lead (05/20/2022 7:04 PM EDT) Component Value Ref Range Test Analysis Performed Pathologis t Method Time At Signature Ventricular rate 101 BPM MUSE SYSTEM QRS Duration 116 ms MUSE SYSTEM Q-T Interval 378 ms MUSE SYSTEM QTC Calculated 490 ms MUSE SYSTEM (Bezet) Calculated R [place] -53 degrees MUSE SYSTEM Calculated T [place] 101 degrees MUSE SYSTEM INTERPRETATION Atrial fibrillation [...] Laterality Volume Narrative 05/20/2022 7:09 PM EDT ?[facility] ? Cardiac Cathete rization/Intervention Report ? Patient Name: Koko Zamora. ? Procedure Date: 05/20/2022 ? A #: [id number] ? Primary Physician: Abundio Servin ? Case #: [id number] ? File Name: [id number] ? Catheterization Order Number: [id number] ? [facility] ? Final Report [place], [place] ? Patient Name: ? Koko J. Klarissa uson ? ID#: ?[id number] ? : ?1940 ? Procedure Date: ? May 20, 2022 ?Case #: ? Room: ? 1 ? Case Physician: ? Abundio roldan M.D. ? Start: ?17:16 ? Admission: ??05/15/2022 ? Referring Physician: ??Sam Hernandez PAlmitaA. ?Discharge: ??05/21/2022 ? Procedures: ?* Coronary Angiography [...] insertion were ?performed and the equipment myriam santa will be described in the ?intervention summary [...] ?3.5 guiding catheter and a 3.5 Fr [place] [facility] [place] [address] ??20 Mhz. ??Imaging ?was successful. ??Image quality was excellent. ??The ostial OM1 showed ?moderate diffuse atheroscleroti c plaque. ?Post Intervention: The stent wa s well expanded and apposed. ? Indication for Intervention: ?Coronary intervention was indic ated for primary therapy for an acute ?myocardial infarction. The prio juan j for the procedure was Urgent. The ?NCDR [...] premounted 2. 75 x 30 mm Rudy Mayfield (AMPARO) was deployed ? with a maximum [...] may require ?modification of this regimen. [facility] Interventional [...] note might be different from the original. [facility] Cardiac Catheterization/Intervention Re port Patient Name: Koko Zamora Procedure Date: 05/20/2022 A #: [id number] Primary Physician: Abundio Servin Case #: File Name: [id number] Catheterization Order Number: [id number] [facility] Manager Utilization [facility] Final Report [place], [place] Patient Name: Koko Zamora ID#: [id number] : 1940 Procedure Date: May 20, 2022 [...] designated a s ASA Class IV. The [facility] clinical frailty scale is 3: Managing Well. [...] e was Urgent. The indication for the clinical laboratory director visit is cardiomyopathy. C hest pain symptom [...] 3.5 guiding catheter and a 3.5 Fr [facility] [place] [address] 20 Mhz. Imaging was successful. Image [...] atmospheres. A premounted 2.75 x 30 mm [place] Mayfield (AMPARO) was deployed with a maximum inflation [...] require modification of this regimen. Consult [facility] Interventional Cardiology for questions. The 1 year [...] Signature POC Glucose 123 65 - 199 [facility] Comment: Supplemental ranges: <140 mg/dL before meals <180 mg/dL all other times of the day Specimen Anatomical Collection Method Collection Time Receive d Time (Source) Location / / Volume Laterality Blood 05/20/2022 5:42 PM 2 5:42 EDT PM EDT Fito Summers MD POINT OF CARE TEST ORDERABLE S Performing Organization Address City/State/[place] [address] (ABNORMAL) BMP w/fasting Glucose (05/20/2022 10:50 AM EDT) athologist Signature Glucose 152 (H) 65 - 99 [facility] Fasting mg/dL [facility] Comment: ?Fasting* Glucose Interpretive [...] of Diabetes Mellitus, Position Statement from the [place] [employer]. ??Diabete s Care, Volume 33, Supplement 1, Nov 2009 BUN 11 10 - 20 mg/dL [facility] Creatinine 0.63 (L) 0.80 - 1.50 mg/dL [facility] Sodium 137 135 - 145 mmol/L [facility] Potassium 3.6 3.5 - 5.0 mmol/L [facility] [...] LABORATORY Calcium 8.7 8.5 - 10.5 mg/dL [facility] Estimated GFR 97 >=60 mL/min/1.73 [...] Organization Address City/State/[place] [address] Heparin (unfractionated) Level (05/20/2022 5:02 AM EDT) P athologist Signature Heparin UFH 0.57 IU/mL [facility] LABORATORY Comment: Heparin (anti-Xa) levels should be [...] Organization Address City/State/[place] [address] (ABNORMAL) Differential, Automated (05/20/2022 5:02 AM EDT) Patholo gist Method Time Signature Neutrophils % 58.1 % [facility] Neutr Abs (ANC) 4.52 1.70 - [facility] 6.10 [facility] x10(3)/[facility] LABORATORY Lymphocytes % 24.1 % [facility] Lymphocytes Abs 1.9 0.9 - 3.2 [facility] x10(3)/[facility] LABORATORY Monocytes % 13.8 % [facility] Monocyte Abs 1.1 (H) 0.3 - 0.9 [facility] x10(3)/[facility] LABORATORY Eosinophils % 2.6 % [facility] Eosinophils Abs 0.2 0.0 - 0.4 [facility] x10(3)/[facility] LABORATORY Basophils % 0.8 % [facility] Basophils Abs 0.1 0.0 - 0.1 [facility] x10(3)/[facility] LABORATORY Immature Gran % 0.60 [...] Organization Address City/State/[place] [address] (ABNORMAL) Hemogram (05/20/2022 5:02 AM EDT) Analysis Performed At Patho logist Time Signature WBC 7.8 4.0 - 9.5 [facility] x10(3)/[facility] LABORATORY RBC 3.53 (L) 4.58 - [facility] 5.54 [facility] x10(6)/[facility] LABORATORY Hemoglobin 11.4 (L) 13.7 - [facility] 16.5 g/dL [facility] Hematocrit 34.3 (L) 40.5 - [facility] 48.5 % [facility] MCV 97.2 (H) 82.9 - [facility] 93.1 fL [facility] MCH 32.3 (H) 27.5 - [facility] 32.1 pg [facility] MCHC 33.2 32.0 - [facility] 35.7 g/dL [facility] Platelets 181 145 - 357 [facility] x10(3)/[facility] LABORATORY RDWSD 46.4 (H) 36.0 - [facility] 45.0 [facility] LABORATORY RDWCV 13.0 11.4 - [facility] 13.8 % [facility] LABORATORY MPV 10.4 7.6 - 12.9 [facility] LABORATORY nRBC % Auto 0.0 % [facility] nRBC Abs Auto 0.000 0.000 - [facility] 0.000 [facility] x10(3)/[facility] LABORATORY Specimen Anatomical Collection Method Collection Time Receive d Time (Source) Location / / Volume Laterality Blood 05/20/2022 5:02 AM 2 5:19 EDT AM EDT Resulting Agency Comment Spec In Lab Edward Rodríguez MD HEMATOLOGY ORDERABLES Performing Organization Address City/State/[place] [address] Heparin (unfractionated) Level (05/19/2022 3:26 AM EDT) athologist Signature Heparin UFH 0.59 IU/mL [facility] LABORATORY Comment: Heparin (anti-Xa) levels should be [...] Organization Address City/State/[place] [address] (ABNORMAL) Differential, Automated (05/19/2022 3:26 AM EDT) Patholo gist Method Time Signature Neutrophils % 62.1 % [facility] Neutr Abs (ANC) 4.59 1.70 - [facility] 6.10 [facility] x10(3)/[facility] LABORATORY Lymphocytes % 22.1 % [facility] Lymphocytes Abs 1.6 0.9 - 3.2 [facility] x10(3)/[facility] LABORATORY Monocytes % 13.5 % [facility] Monocyte Abs 1.0 (H) 0.3 - 0.9 [facility] x10(3)/[facility] LABORATORY Eosinophils % 1.3 % [facility] Eosinophils Abs 0.1 0.0 - 0.4 [facility] x10(3)/[facility] LABORATORY Basophils % 0.5 % [facility] Basophils Abs 0.0 0.0 - 0.1 [facility] x10(3)/[facility] LABORATORY Immature Gran % 0.50 [...] Abs 0.04 0.00 - 0.04 x10(3)/[facility] LABORATORY Specimen Anatomical Collection Method Collection Time Receive d Time (Source) Location / / Volume Laterality Blood 05/19/2022 3:26 AM 3:59 EDT AM EDT Resulting Agency Comment Spec In Lab Edward Rodríguez MD HEMATOLOGY ORDERABLES Performing Organization Address City/State/[place] [address] (ABNORMAL) Hemogram (05/19/2022 3:26 AM EDT) Analysis Performed At Path logist Time Signature WBC 7.4 4.0 - 9.5 [facility] x10(3)/[facility] LABORATORY RBC 3.74 (L) 4.58 - [facility] 5.54 [facility] x10(6)/[facility] LABORATORY Hemoglobin 12.1 (L) 13.7 - [facility] 16.5 g/dL [facility] Hematocrit 36.4 (L) 40.5 - [facility] 48.5 % [facility]ORATORY MCV 97.3 (H) 82.9 - [facility] 93.1 [facility] LABORATORY MCH 32.4 (H) 27.5 - [facility] 32.1 pg [facility]ORAT[facility] MCHC 33.2 32.0 - [facility] 35.7 g/dL [facility]ORAT[facility] Platelets 168 145 - 357 [facility] x10(3)/[facility] LABORATORY RDWSD 46.9 (H) 36.0 - [facility] 45.0 [facility] LABORATORY RDWCV 13.0 11.4 - [facility] 13.8 % [facility] LABORATORY MPV 10.5 7.6 - 12.9 [facility] nRBC % Auto 0.0 % [facility] LABOR[facility] nRBC Abs Auto 0.000 0.000 - [facility] 0.000 [facility] x10(3)/[facility] LABORATORY Specimen Anatomical Collection Method Collection Time Receive d Time (Source) Location / / Volume Laterality Blood 05/19/2022 3:26 AM 3:59 EDT AM EDT Resulting Agency Comment Spec In Lab Edward Rodríguez MD HEMATOLOGY ORDERABLES Performing Organization Address City/State/[place] [address] TSH (05/18/2022 8:00 PM EDT) P athologist Signature TSH 2.27 0.27 - 4.20 [facility] mcIU/mL [facility] Comment: Reference Interval (mcIU/mL): [...] Phon e Number [facility] [place] [address] (ABNORMAL) Differential, Automated (05/18/2022 3:34 AM EDT) [facility] gist Method Time Signature Neutrophils % 67.2 % [facility] LABORATORY Neutr Abs (ANC) 5.89 1.70 - [facility] 6.10 [facility] x10(3)/[facility] LABORATORY Lymphocytes % 17.1 % [facility]OR[facility]ORY Lymphocytes Abs 1.5 0.9 - 3.2 [facility] x10(3)/[facility] LABORATORY Monocytes % 13.6 % [facility]ORY Monocyte Abs 1.2 (H) 0.3 - 0.9 [facility] x10(3)/[facility] LABORATORY Eosinophils % 1.0 % [facility] Eosinophils Abs 0.1 0.0 - 0.4 [facility] x10(3)/[facility] LABORATORY Basophils % 0.6 % [facility]ORY Basophils Abs 0.0 0.0 - 0.1 [facility] x10(3)/[facility] LABORATORY Immature Gran % 0.50 [...] Abs 0.04 0.00 - 0.04 x10(3)/[facility] LABORATORY Specimen Anatomical Collection Method Collection Time Receive d Time (Source) Location / / Volume Laterality Blood 05/18/2022 3:34 AM 2 3:48 EDT AM EDT Resulting Agency Comment Spec In Lab Edward N Facciponte MD HEMATOLOGY ORDERABLES Performing Organization Address City/[facility]/[place] [address] (ABNORMAL) Hemogram (05/18/2022 3:34 AM EDT) Analysis Performed At Patho logist Time Signature WBC 8.8 4.0 - 9.5 [facility] x[facility](3[facility] LABORATORY RBC 3.45 (L) 4.58 - [facility] 5.54 [facility] x10(6[facility] LABORATORY Hemoglobin 11.2 (L) 13.7 - [facility] 16.5 g/dL [facility] LAB[facility]ORY Hematocrit 33.0 (L) 40.5 - [facility] 48.5 % [facility] LABORATORY MCV 95.7 (H) 82.9 - [facility] 93.1 [facility] LABORATORY MCH 32.5 (H) 27.5 - [facility] 32.1 pg [facility] LABORATORY MCHC 33.9 32.0 - [facility] 35.7 g/dL [facility]OR[facility]ORY Platelets 130 (L) 145 - 357 [facility] x10(3)/[facility] LABORATORY RDWSD 46.2 (H) 36.0 - [facility] 45.0 [facility] LABORATORY RDWCV 13.2 11.4 - [facility] 13.8 % [facility] LABORATORY MPV 10.8 7.6 - 12.9 [facility] LABORATORY nRBC % Auto 0.0 % [facility] LABORATORY nRBC Abs Auto 0.000 0.000 - [facility] 0.000 [facility] x10(3)/[facility] LABORATORY Specimen Anatomical Collection Method Collection Time Receive d Time (Source) Location / / Volume Laterality Blood 05/18/2022 3:34 AM 3:48 EDT AM EDT Resulting Agency Comment Spec In Lab Edward Rodríguez MD HEMATOLOGY ORDERABLES Performing Organization Address City/[facility]/[place] [address] Heparin (unfractionated) Level (05/18/2022 3:34 AM EDT) athologist Signature Heparin UFH 0.59 IU/mL [facility] LABORATORY Comment: Heparin (anti-Xa) levels should be [...] Organization Address City/State/ZIP Code Phon e Number [address] Magnesium (05/17/2022 3:33 AM EDT) athologist Signature Magnesium 0.76 0.69 - 1.07 [facility] mmol/L [facility] LABOR[facility]ORY Specimen Anatomical Collection Method Collection Time Receive d Time (Source) Location / / Volume Laterality Blood Venous Draw / 05/17/2022 3:33 AM 05/17/20 4:05 Unknown EDT AM EDT Resulting Agency Comment Spec In Lab Dottie Hill APRN CHEMISTRY ORDERABLES Performing Organization Address City/State/ZIP Code Phon e Number [address] (ABNORMAL) Basic Metabolic Panel (non-fasting) (05/17/2022 3:33 AM EDT) athologist Signature Glucose Lvl 158 65 - 199 [facility] mg/dL [facility]ORY Comment: Diabetes: >=200 mg/dL plus symp toms BUN 12 10 - 20 mg/dL [facility]ORY Creatinine 0.74 (L) 0.80 - 1.50 mg/dL [facility] LABORATORY Sodium 137 135 - 145 mmol/L [facility]ORY Potassium 3.5 3.5 - 5.0 mmol/L [facility] [...] Calcium 8.4 (L) 8.5 - 10.5 mg/dL [facility] LAB[facility]ORY Estimated GFR 92 >=60 mL/min/1.73 [...] Organization Address City/State/[place] [address] (ABNORMAL) Differential, Automated (05/17/2022 3:33 AM EDT) Patholo gist Method Time Signature Neutrophils % 65.5 % [facility] LABORATORY Neutr Abs (ANC) 6.84 (H) 1.70 - [facility] 6.10 [facility] x10(3)/[facility] LABORATORY Lymphocytes % 19.7 % [facility] LABORATORY Lymphocytes Abs 2.1 0.9 - 3.2 [facility] x10(3)/[facility] LABORATORY Monocytes % 13.1 % [facility] LABOR[facility]ORY Monocyte Abs 1.4 (H) 0.3 - 0.9 [facility] x10(3)/[facility] LABORATORY Eosinophils % 0.6 % [facility]ORY Eosinophils Abs 0.1 0.0 - 0.4 [facility] x10(3)/[facility] LABORATORY Basophils % 0.6 % [facility] LAB[facility]ORY Basophils Abs 0.1 0.0 - 0.1 [facility] x10(3)/[facility] LABORATORY Immature Gran % 0.50 [...] Organization Address City/State/[place] [address] (ABNORMAL) Hemogram (05/17/2022 3:33 AM EDT) Analysis Performed At [facility] logist Time Signature WBC 10.4 (H) 4.0 - 9.5 [facility] x10(3)/[facility] LABORATORY RBC 3.72 (L) 4.58 - [facility] 5.54 [facility] x10(6)/[facility] LABORATORY Hemoglobin 12.0 (L) 13.7 - [facility] 16.5 g/dL [facility] LAB[facility]ATORY Hematocrit 36.4 (L) 40.5 - [facility] 48.5 % [facility] LABORATORY MCV 97.8 (H) 82.9 - [facility] 93.1 [facility] LABORATORY MCH 32.3 (H) 27.5 - [facility] 32.1 pg [facility] LABORATORY MCHC 33.0 32.0 - [facility] 35.7 g/dL [facility] LABORATORY Platelets 149 145 - 357 [facility] x10(3)/[facility] LABORATORY RDWSD 48.7 (H) 36.0 - [facility] 45.0 [facility] RDWCV 13.5 11.4 - [facility] 13.8 % [facility] LABORATORY MPV 10.6 7.6 - 12.9 [facility] LABORATORY nRBC % Auto 0.0 % [facility] LABORATORY nRBC Abs Auto 0.000 0.000 - [facility] 0.000 [facility] x10(3)/[facility] LABORATORY Specimen Anatomical Collection Method Collection Time Receive d Time (Source) Location / / Volume Laterality Blood 05/17/2022 3:33 AM 3:53 EDT AM EDT Resulting Agency Comment Spec In Lab Edward Rodríguez MD HEMATOLOGY ORDERABLES Performing Organization Address City/State/[place] [address] (ABNORMAL) Urinalysis Microscopic Exam [...] Organization Address City/State/ZIP Code Phon e Number [address] (ABNORMAL) Urinalysis with reflex Culture (05/16/2022 11:15 PM EDT) Patholo gist Method Time Signature Glucose UA Negative Negative [facility] mg/dL [facility]ORY Protein UA Negative Negative [facility] mg/dL [facility] Bilirubin UA Negative Negative [facility] mg/dL [facility]ORY Comment: Clinical correlation [facility] Nitrite UA Negative Negative [facility] LABORATORY Leukocytes UA Negative Negative [facility] LABORATORY Appearance UA Clear Clear [facility] LABORATORY Spec [place] UA 1.021 1.005 - 1.030 [facility] LABORATORY Color UA Yellow Yellow [facility] LABORATORY Culture Reflexed No [facility] LABOR[facility]ORY Specimen Anatomical Collection Method Collection Time Receive d Time (Source) Location / / Volume Laterality Clean Catch 05/16/2022 11:15 05/16/2022 Urine PM EDT 11:30 PM EDT Resulting Agency Comment Spec In Lab Fito Summers MD URINE ORDERABLES Performing Organization Address City/[facility]/[place] [address] Heparin (unfractionated) Level (05/16/2022 10:59 PM EDT) P athologist Signature Heparin UFH 0.65 IU/mL [facility] Comment: Specimen drawn more than one [...] Organization Address City/State/[place] [address] XR Chest One View [...] have questions please contact the health home health care provider that requested your imaging first. ? Electronically signed by: Tiffanie George MD , [facility] ([phone]), at 05/16/2022 9:27 PM Narrative 05/16/2022 9:27 [...] have questions please contact the health home health care provider that requested your imaging first. Electronically signed by: Tiffanie George MD , [facility] ([phone]), at 05/16/2022 9:27 PM Fito Summers MD IMG DX ORDERABLES EKG 12 Lead (05/16/2022 8:57 PM EDT) Component Value Ref Range Test Analysis Performed Pathologis t Method Time At Signature Ventricular rate 117 BPM MUSE SYSTEM QRS Duration 112 ms MUSE SYSTEM Q-T Interval 346 ms MUSE SYSTEM QTC Calculated 482 ms MUSE SYSTEM (Bezet) Calculated R [place] -48 degrees MUSE SYSTEM Calculated T [place] 111 degrees MUSE SYSTEM INTERPRETATION Atrial fibrillation [...] EDT) athologist Signature Heparin UFH 0.53 IU/mL [facility] LABORATORY Comment: Heparin (anti-Xa) levels should be [...] Organization Address City/State/[place] [address] ECHOCARDIOGRAM COMPLETE W CONTRAST (05/16/2022 12:49 PM EDT) athologist Signature EF 28 HEART[facility] SYSTEM Anatomical Region Laterality Modality Cardiac Other Specimen (Source) Anatomical Collection Method Collection Time Re ceived Time Location / / Volume Laterality 05/16/2022 11:22 AM EDT Narrative 05/16/2022 1:54 PM EDT [facility] ?[address] ? [place] [address] ?Voice: ?Fax: ? Echocardiogram Report Name: KOKO ZAMORA ?Study Date: 05/16/2022 11:22 AM ? Patient Location: 3T 0303 B : 1940 ? Height: 67.5 in ? Account: [id number] Age: 81 yrs ? Weight: 176 lb Gender: Male ?BSA: 1.9 m2 Ordering Physician: FITO SUMMERS Referring Physician: MALI FLORIAN Performed By: Jolene Bernard RDCS Exam Location: [facility]. Interpretation Summary Left ventricle is [...] and LV systolic dysfunction are new. Procedure Complete-[id number]. Image enhancement Optiso n was used for [...] note might be different from the original. [facility] [address] [place] [address] Voice: Fax: Echocardiogram Report Name: KOKO ZAMORA Study Date: 05/2022 11:22 AM Patient Location: [address] [place] [address] : 1940 Height: 67.5 in Account: [id number] Age: 81 yrs Weight: 176 lb Gender: Male BSA: 1.9 m2 Ordering Physician: FITO SUMMERS Referring Physician: MALI FLORIAN Performed By: Jolene Bernard RDCS Exam Location: [facility]. Interpretation Summary Left ventricle is [...] and LV systolic dysfunction are new. Procedure Complete-[id number]. Image enhancement Optiso n was used for [...] (ABNORMAL) Differential, Automated (05/16/2022 3:01 AM EDT) [facility] Method Time Signature Neutrophils % 78.8 % [facility] LABORATORY Neutr Abs (ANC) 9.11 (H) 1.70 - [facility] 6.10 [facility] x10(3)/[facility] LABORATORY Lymphocytes % 9.4 % [facility] LABORATORY Lymphocytes Abs 1.1 0.9 - 3.2 [facility] x[facility](3[facility] LABORATORY Monocytes % 10.9 % [facility] LABOR[facility]ORY Monocyte Abs 1.3 (H) 0.3 - 0.9 [facility] x10(3)/[facility] LABORATORY Eosinophils % 0.0 % [facility] LAB[facility]ORY Eosinophils Abs 0.0 0.0 - 0.4 [facility] x10(3)/[facility] LABORATORY Basophils % 0.3 % [facility] LABORATORY Basophils Abs 0.0 0.0 - 0.1 [facility] x10(3)/[facility] LABORATORY Immature Gran % 0.60 [...] Organization Address City/State/[place] [address] (ABNORMAL) Hemogram (05/16/2022 3:01 AM EDT) Analysis Performed At Patho logist Time Signature WBC 11.6 (H) 4.0 - 9.5 [facility] x10(3)/[facility] LABORATORY RBC 3.62 (L) 4.58 - [facility] 5.54 [facility] x10(6)/[facility] LABORATORY Hemoglobin 12.0 (L) 13.7 - [facility] 16.5 g/dL [facility] LABORATORY Hematocrit 35.3 (L) 40.5 - [facility] 48.5 % [facility] LABORATORY MCV 97.5 (H) 82.9 - [facility] 93.1 fL [facility] LABORATORY MCH 33.1 (H) 27.5 - [facility] 32.1 pg [facility] LABORATORY MCHC 34.0 32.0 - [facility] 35.7 g/dL [facility] LABORATORY Platelets 151 145 - 357 [facility] x10(3)/[facility] LABORATORY RDWSD 47.6 (H) 36.0 - [facility] 45.0 [facility] LABORATORY RDWCV 13.3 11.4 - [facility] 13.8 % [facility] LABORATORY MPV 10.5 7.6 - 12.9 [facility] LABORATORY nRBC % Auto 0.0 % [facility] LABORATORY nRBC Abs Auto 0.000 0.000 - [facility] 0.000 [facility] x10(3)/[facility] LABORATORY Specimen Anatomical Collection Method Collection Time Receive d Time (Source) Location / / Volume Laterality Blood 05/16/2022 3:01 AM 2 3:36 EDT AM EDT Resulting Agency Comment Spec In Lab Erin Garza MD HEMATOLOGY ORDERABLES Performing Organization Address City/[facility]/[place] [address] Phosphorus (05/16/2022 3:01 AM EDT) athologist Signature Phosphorus 3.7 2.5 - 4.5 [facility] LABORATORY Specimen Anatomical Collection Method Collection Time Receive d Time (Source) Location / / Volume Laterality Blood 05/16/2022 3:01 AM 2 3:36 EDT AM EDT Resulting Agency Comment Spec In Lab Fito Summers MD CHEMISTRY ORDERABLES Performing Organization Address City/[facility]/ZIP Code Phon e Number [address] Magnesium (05/16/2022 3:01 AM EDT) P athologist Signature Magnesium 0.77 0.69 - 1.07 [facility] mmol/L [facility]OR[facility]ORY Specimen Anatomical Collection Method Collection Time Receive d Time (Source) Location / / Volume Laterality Blood 05/16/2022 3:01 AM 2 3:36 EDT AM EDT Resulting Agency Comment Spec In Lab Fito Summers MD CHEMISTRY ORDERABLES Performing Organization Address City/[facility]/[place] [address] (ABNORMAL) Basic Metabolic Panel (non-fasting) (05/16/2022 3:01 AM EDT) P athologist Signature Glucose Lvl 222 (H) 65 - 199 [facility] mg/dL [facility] LABOR[facility]ORY Comment: Diabetes: >=200 mg/dL plus symp toms BUN 12 10 - 20 mg/dL [facility] LABORATORY Creatinine 0.66 (L) 0.80 - 1.50 mg/dL [facility] LABORATORY Sodium 138 135 - 145 mmol/L [facility] LABORATORY Potassium 4.5 3.5 - 5.0 mmol/L [facility] [...] Calcium 8.2 (L) 8.5 - 10.5 mg/dL [facility] LABORATORY Estimated GFR 95 >=60 mL/min/1.73 [...] Organization Address City/State/[place] [address] (ABNORMAL) BLOOD GAS 2 ARTERIAL (05/15/2022 3:33 PM EDT) Analysis Performed At Patho logist Time Signature pH Art 7.33 (L) 7.35 - [facility] 7.45 [facility] LABORATORY pCO2 Art 41 35 - 45 [facility] LABORATORY pO2 Art 131 (H) 85 - 104 [facility] LABORATORY HCO3 Art 21.1 20.0 - [facility] 26.0 [facility] mmol/L [facility] LABORATORY BE Art -4.8 (L) -3.0 - 3.0 [facility] mmol/L [facility]ORATORY Hgb Blood Gas 13.4 (L) 13.7 - [facility] 16.5 g/dL [facility] LABORATORY O2HB Art 96.9 94.0 - [facility] 97.0 % [facility] COHB Art 1.4 % [facility] [...] Whole Bld 136 65 - 199 mg/dL [facility] LABORATORY Comment: Diabetes: >=200 mg/dL plus symp toms. Lactate WB 2.0 0.5 - 2.2 mmol/L [facility] LABORATORY Specimen Anatomical Collection Method Collection Time Receive d Time (Source) Location / / Volume Laterality Blood 05/15/2022 3:33 PM 2 3:[address] Jamel Torre MD CHEMISTRY ORDERABLES Performing Organization Address City/State/[place] [address] (ABNORMAL) BLOOD GAS 2 ARTERIAL (05/15/2022 2:06 PM EDT) Analysis Performed At Patho logist Time Signature pH Art 7.39 7.35 - [facility] 7.45 [facility] LABORATORY pCO2 Art 35 35 - 45 [facility] mmHg [facility] LABORATORY pO2 Art 135 (H) 85 - 104 [facility] LABORATORY HCO3 Art 20.8 20.0 - [facility] 26.0 [facility] mmol/[facility] LABORATORY BE Art -4.2 (L) -3.0 - 3.0 [facility] mmol/L [facility] LABORATORY Hgb Blood Gas 14.5 13.7 - [facility] 16.5 g/dL [facility] O2HB Art 97.2 (H) 94.0 - [facility] 97.0 % [facility]ORY COHB Art 1.2 % [facility] [...] Whole Bld 152 65 - 199 mg/dL [facility] LABORATORY Comment: Diabetes: >=200 mg/dL plus symp toms. Lactate WB 1.5 0.5 - 2.2 mmol/L [facility] LABORATORY Specimen Anatomical Collection Method Collection Time Receive d Time (Source) Location / / Volume Laterality Blood 05/15/2022 2:06 PM 2 2:[address] Jamel Torre MD CHEMISTRY ORDERABLES Performing Organization Address City/[facility]/ZIP Code Phon e Number [place] [id number]OS[address] LAB[address]ORY Drive (ABNORMAL) Prothrombin Time (05/15/2022 12:30 PM EDT) P athologist Signature PT 12.9 (H) 9.4 - 12.5 [facility] LABORATORY INR 1.1 [facility] [...] DO HEMATOLOGY ORDERABLES Performing Organization Address City/[facility]/[place] [address] (ABNORMAL) APTT (05/15/2022 12:30 [...] Agency Comment Spec In Lab Jhonny Morales HEMATOLOGY ORDERABLES Performing Organization Address City/[facility]/[place] [address] Gold Tube HOLD (05/15/2022 12:20 PM EDT) P athologist Signature Gold Hold Sample in [facility]. [facility] LABORATORY Specimen Anatomical Collection Method Collection Time Receive d Time (Source) Location / / Volume Laterality Blood No Charge / 05/15/2022 12:20 05/15/2022 Unknown PM EDT 12:20 PM EDT Lc TRIPP CHEMISTRY ORDERABLES Performing Organization Address City/[facility]/[place] [address] Type and Screen Validity (05/15/2022 12:00 PM EDT) [facility] HealthSouk Method Time Signature T&S only valid [facility] LABORATORY Comment: This Type and Screen result is only valid at the [facility] Specimen Anatomical Collection Method Collection Time Receive d Time (Source) Location / / Volume Laterality Blood 05/15/2022 12:00 05/15/2022 PM EDT 12:17 PM EDT Resulting Agency Comment Spec In Lab Lc TRIPP BLOOD BANK ORDERABLES Performing Organization Address City/[facility]/ZIP Code Phon e Number [address] ABORH Recheck Status (05/15/2022 12:00 PM EDT) [facility] HealthSouk Method Time Signature ABORH Recheck Order Placed [facility] K [facility] LABORATORY ABORH Type Complete [facility] LABORATORY Specimen Anatomical Collection Method Collection Time Receive d Time (Source) Location / / Volume Laterality Blood 05/15/2022 12:00 05/15/2022 PM EDT 12:17 PM EDT Resulting Agency Comment Spec In Lab Lc TRIPP BLOOD BANK ORDERABLES Performing Organization Address City/State/[place] [address] CK (05/15/2022 12:00 PM EDT) P athologist Signature CK, Total 87 0 - 200 [facility] unit/L [facility] LABORATORY Specimen Anatomical Collection Method Collection Time Receive d Time (Source) Location / / Volume Laterality Blood Venous Draw / 05/15/2022 12:00 05/15/2022 Unknown PM EDT 12:19 PM EDT Resulting Agency Comment Spec In Lab Fito Summers MD CHEMISTRY ORDERABLES Performing Organization Address City/[facility]/[place] [address] Antibody screen (05/15/2022 12:00 PM EDT) [facility] Method Time Signature Ab Screen Negative [facility] LABORATORY Expires at 05/18/2022 [facility] [id number] on: [facility] LABORATORY Specimen Anatomical Collection Method Collection Time Receive d Time (Source) Location / / Volume Laterality Blood 05/15/2022 12:00 05/15/2022 PM EDT 12:17 PM EDT Resulting Agency Comment Spec In Lab Lc Dominick Kimberly TRIPP BLOOD BANK ORDERABLES Performing Organization Address City/[facility]/[place] [address] ABO/Rh Typing (05/15/2022 12:00 PM EDT) P athologist Signature ABORh Type O Pos [facility] LABORATORY Specimen Anatomical Collection Method Collection Time Receive d Time (Source) Location / / Volume Laterality Blood 05/15/2022 12:00 05/15/2022 PM EDT 12:17 PM EDT Resulting Agency Comment Spec In Lab Lc Dominick Kimberly TRIPP BLOOD BANK ORDERABLES Performing Organization Address City/[facility]/[place] [address] (ABNORMAL) Differential, Automated (05/15/2022 12:00 PM EDT) [facility] Method Time Signature Neutrophils % 79.4 % [facility] LABORATORY Neutr Abs (ANC) 7.49 (H) 1.70 - [facility] 6.10 [facility] x10(3)/[facility] LABORATORY Lymphocytes % 11.3 % [facility] LABORATORY Lymphocytes Abs 1.1 0.9 - 3.2 [facility] x10(3)/[facility] LABORATORY Monocytes % 7.8 % [facility] LABORATORY Monocyte Abs 0.7 0.3 - 0.9 [facility] x10(3)/[facility] LABORATORY Eosinophils % 0.6 % [facility] LABORATORY Eosinophils Abs 0.1 0.0 - 0.4 [facility] x10(3)/[facility] LABORATORY Basophils % 0.6 % [facility] LABORATORY Basophils Abs 0.1 0.0 - 0.1 [facility] x10(3)/[facility] LABORATORY Immature Gran % 0.30 % [...] Abs 0.03 0.00 - 0.04 x10(3)/[facility] LABORATORY Specimen Anatomical Collection Method Collection Time Receive d Time (Source) Location / / Volume Laterality Blood 05/15/2022 12:00 05/15/2022 PM EDT 12:19 PM EDT Resulting Agency Comment Spec In Lab Lc TRIPP HEMATOLOGY ORDERABLES Performing Organization Address City/State/[place] [address] (ABNORMAL) Hemogram (05/15/2022 12:00 PM EDT) Analysis Performed At [facility] logist Time Signature WBC 9.4 4.0 - 9.5 [facility] x10(3)/[facility] LABORATORY RBC 4.48 (L) 4.58 - [facility] FAYE 5.54 [facility] x10(6)/[facility] LABORATORY Hemoglobin 14.5 13.7 - [facility] 16.[facility] g/dL [facility] LABORATORY Hematocrit 42.4 40.5 - [facility] 48.5 % [facility] LABORATORY MCV 94.6 (H) 82.9 - [facility] 93.1 [facility] LABORATORY MCH 32.4 (H) 27.5 - [facility] 32.1 pg [facility] LABORATORY MCHC 34.2 32.0 - [facility] 35.7 g/dL [facility] LABORATORY Platelets 209 145 - 357 [facility] x10(3)/[facility] LABORATORY RDWSD 45.9 (H) 36.0 - [facility] 45.0 [facility] LABORATORY RDWCV 13.1 11.4 - [facility] 13.8 % [facility] LABORATORY MPV 10.5 7.6 - 12.9 [facility] LABORATORY nRBC % Auto 0.0 % [facility] LABORATORY nRBC Abs Auto 0.000 0.000 - [facility] 0.000 [facility] x10(3)/[facility] LABORATORY Specimen Anatomical Collection Method Collection Time Receive d Time (Source) Location / / Volume Laterality Blood 05/15/2022 12:00 05/15/2022 PM EDT 12:19 PM EDT Resulting Agency Comment Spec In Lab Lc TRIPP HEMATOLOGY ORDERABLES Performing Organization Address City/State/[place] [address] (ABNORMAL) Basic Metabolic Panel (non-fasting) (05/15/2022 12:00 PM EDT) athologist Signature Glucose Lvl 203 (H) 65 - 199 [facility] mg/dL [facility] LABORATORY Comment: Diabetes: >=200 mg/dL plus symp toms BUN 16 10 - 20 mg/dL [facility] LABORATORY Creatinine 0.84 0.80 - 1.50 mg/dL [facility] LABORATORY Sodium 141 135 - 145 mmol/L [facility] LABORATORY Potassium 4.7 3.5 - 5.0 mmol/L [facility] [...] LABORATORY Calcium 8.5 8.5 - 10.5 mg/dL [facility] LABORATORY Estimated GFR 89 >=60 mL/min/1.73 [...] Organization Address City/State/[place] [address] documented in this encounter [...] EVERY 6 HOURS PRN, Starting on Brandi 22 at 1606, Until Fri05/21/22 at 1743, Pain, [...] (Given - Provider: Barbie Joyce , RN)1750 ([facility] Hold - Provider: Admin Adt - Reason: Transfer to a Procedural area)1955 ([facility] Unhold - Provider: Admin Adt) 15 (Given - Provider: Etta contreras RN) 1,000 mcg, Oral, DAILY, First dose on 05/16/22 at 0900, Until Discontinued, Routine metoprolol tartrate (Lopressor) tablet 12.5 mg (CANCEL ED) 0838 (Given - Provider: Caroline Zamora, DION)2008 (Given - Provider: Nuris Lester RN) 0853 (Given - Provider: Barbie Joyce RN)1750 ([facility] Hold - Provider: Admin Adt - Reason: Transfer to a Procedural area)1955 ([facility] Unhold - Provider: Admin Adt)2004 (Given - [...] tablet 0 838 (Given - Provider: Caroline Zamora, DION) 0852 (Given - Provider: Barbie Joyce , DION)1750 ([facility] Hold - Provider: Admin Adt - Reason: Transfer to a Procedural area)1955 ([facility] Unhold - Provider: Admin Adt) 0816 (Given [...] area)1955 (JAN Unhold - Provider: Admin Adt) 16 (Given - Provider: Etta contreras RN) 40 [...] 0853 (Given - Provider: Barbie Joyce RN)1750 ([facility] Hold - Provider: Admin Adt - Reason: Transfer to a Procedural area)1955 ([facility] Unhold - Provider: Admin Adt) 0817 (Given - Provider: Etta contreras RN) 0.4 mg, Oral, DAILY, First dose on Fri at 0900, Until Discontinued, DO NOT CRUSH OR OPEN, Routine thiamine (Vitamin B1) tablet 100 mg 0838 (Given - Prov ider: Caroline Zamora RN) 0853 (Given - Provider: Barbie Joyce RN)1750 ([facility] Hold - Provider: Admin Adt - Reason: Transfer to a Procedural area)1955 ([facility] Unhold - Provider: Admin Adt) 0816 (Given - Provider: Etta contreras RN) 100 mg, Oral, DAILY, First dose on Fri at 0900, Until Discontinued, Routine valsartan (Diovan) tablet 40 mg 0838 (Given - Provider : Caroline Zamora, DION)2008 (Given - Provider: Nuris Lester RN) 0853 (Given - Provider: Barbie Joyce RN)1750 ([facility] Hold - Provider: Admin Adt - Reason: Transfer to a Procedural area)1955 ([facility] Unhold - Provider: Admin Adt)2005 (Given - [...] 1599 (New Bag - Provider: Barbie Joyce RN)1751 (JAN Hold - Provider: Admin Adt - [...] () 1899 (Continued Bag - Provider: Cassy Schultz RN)2199 (Stopped - Provider: Tere Blankenship RN) [...] area)1955 ([facility] Unhold - Provider: Admin Adt) 10 mg, [...] area)1955 ([facility] Unhold - Provider: Admin Adt) 0-8,000 Units, Intravenous, BOLUS PER TRE ROSARIO PROTOCOL, Starting on Brandi 05/16/22 at 0758, Until 05/21/22 at 1523, Per Protocol, START ADJUSTMENT SCHEDULE [...] injection (CANCELED) 172 (Given - Provider: Flavia Schuler RN)174 (Given [...] mL 1750 (JAN Hold - Provider: A tr Adt - Reason: Transfer to a Procedural [...] - Reason: Transfer to a Procedural area)1955 ([facility] Unhold - Provider: Admin Adt) 5-10 mg, [...]
Routine documented in this encounter Care Teams Digital Analyst Relationship Specialty Start Date End Date Bobby Das MD PCP - General 10/02/[address] [place] [address] [place] [address] documented as of this encounter
--- OUTSIDE RECORDS SUMMARY | 2022-07-17 10:38 | XMS_ITS | Encounter Summary ---
:1940 Author Organization [facility] Address [facility] [place] [address] Care Team Providers Name Role Phone Bobby Das MD Primary Care Provider Reason for Visit - Closed Specialty Diagnoses / Procedures Referred By Contact Refer red To Contact Procedures Bobby Das MD Film Library- Storage Only [address] [place] [id number] Referral ID Status Reason Start Date Expiration Date Visits Requ ested Visits Authorized [id number] Closed 02/23/2021 02/23/2022 1 1 Encounter Details Date Type Department Care Team Description 02/20/2021 Ancillary Procedure Radiology Library at Bobby Almaguer MD [address] [id number] [phone] (Rebekah rojas) Social History Tobacco Use Types [...] [facility] DR GASTROENTEROLOGY DEPT [place], [place] [address] (Wo rk) 09/05/2022 Appointment Cardiology Trinity Reid MD [facility] [place]OLOG[place], [place] [address] (Wo rk) 09/05/2022 Office Visit Cardiology Trinity Reid MD [facility] CARDIOLOGY [place], [place] [address] (Wo rk) documented as of [...] Organization Address City/State/ZIP Code Phon e Number [place], [place] documented in this encounter Visit Diagnoses Not on filedocumented in this encounter Care Teams Recruiting Consultant Relationship Specialty Start Date End Date Bobby Das MD PCP - General 10/02/[address] [place] [address] [place] [phone] documented as of this encounter
--- OUTSIDE RECORDS SUMMARY | 2022-07-17 10:38 | XMS_ITS | Encounter Summary ---
:1940 [place] [address] Care Team Providers Name Role Phone Bobby Das MD Primary Care Provider Reason for Visit Reason Comments Left Leg Pain Auth/Cert Specialty Diagnoses / Procedures Referred By Contact Refer red To Contact Diagnoses Limb ischemia LLE thrombus Fito Summers MD [facility] [place] [address] Referral ID Status Reason Start Date Expiration Date Visits Requ ested Visits Authorized [id number] 1 1 Encounter Details Date Type Department Care Team Description 05/20/2022 Surgery Roofing Machine Operator Abundio Mcguire , CARDIAC CATHETERIZATION [facility] [place] [address] CARDIOLOGY [phone] [place], [place] 0[address] (Wo rk) Social History Tobacco [...] onset Afib who presents in transfer from [facility] with acute limb ischemia of the [...] emergently went to the OR for L AIR CONDITIONING INSULATION INSTALLER transverse arteriotomy and primary repair, thromboembolectomy of L SFA/PFA/AIR CONDITIONING INSULATION INSTALLER, reperfusion venous drainage for 250 cc, and [...] Discharge Condition: Good Discharge to: Home with [address] [address] Future Appointments and Orders Future Appointments and Orders Future Appointments Provider Department Dept Phone 05/23/2022 10:30 AM Loretta Cohen MD Dermatology at [facility] Arrive at: Micro Photographer [address] [place] [address] 06/07/2022 1:30 PM Gail Rae APRN Vascular Surgery at [facility] Arrive at: Micro Photographer [address] [phone] 06/13/2022 7:30 AM Edson Lagos [place] Vascular Lab at [facility] Arrive at: Micro Photographer Area 06/13/2022 8:00 AM Fito uSmmers MD Vascular Surgery at [facility] Arrive at: Micro Photographer Area 3V [phone] 06/13/2022 10:00 AM Alan Reid MD Cardiology at [facility] Arrive at: Micro Photographer Area [phone] Future Orders Complete By Expires Ziopatch 48 Hrs-15 Days [[id number] CPT(R)] 05/21/2022 11/20/2022 Process Instructions: Scheduling Instructions: Comments: Questions: Does the patient have a pacemaker? If yes provide HI/LO settings: Apply for 7 or 14 days?: 7 Where will study be performed?: [facility] Clinics JOSSELYN, legs, multiple levels [VAS8 Custom] 06/21/2022 (Approximate) 12/21/2022 Process Instructions: There is no in-house vascular laborer tanbark available on weeknights (5pm-8am), weekends, or holidays. IF THIS IS A REQUEST FOR AN EMERGENT STUDY DURING THOSE HOURS, please have the senior provider responsible for the patient page the Vascular Surgery Fellow/Senior Resident demolition specialist to discuss options. Scheduling Instructions: Questions: Indication for study/signs & symptoms: ALI s/p L fem cutdown with thromboembolectomy Question to be answered: Perfusion to feet? Please check toe pressure Preferred location?: [facility] Clinics Referral to Cardiology [REF12 Custom] As [...] Koko Zamora for admission to Home Health. [address] [place] [phone] (home) Date of : 1940 Inpatient DOCUMENTATION FOR VNA SERVICES (INCLUDING THOSE PATIENTS WITH MEDICARE COVERAGE REQUIRING HOME VNA SERVICES AND/OR HOSPICE SERVICES) PATIENT'S LOCATION: Koko Zamora [address] [place] [phone] (home) Cell: No relevant phone numbers on file. Automotive Specialty Technician's Name: Koko In discussion with the attending physician, it is certified that this patient is under their care and that they, or a Nurse Practitioner,Clinical Nurse specialist or Physician Fisher Dip Net who is working directly with them, had [...] for managing ADL's. HOME HEALTH CARE AGENCY: [facility]. [address] [place] [phone] Start of care: Within 24 to 48 [...] from this patient'sPCP: Bobby Das MD [address] [place] [address] [place] [address] All VNA agencies which [...] For any problems or questions please call [phone] For issues on weeknights after 5pm and weekends please call [phone] and ask for the Vascular Fellow demolition specialist. JOSEE Santiago Vascular Surgery 05/21/2022 documented in [...] For any problems or questions please call [phone] For issues on weeknights after 5pm and weekends please call [phone] and ask for the Vascular Fellow demolition specialist. documented in this encounter Medications at Time [...] 04/12/20 21 (FLONASE) 50 mcg/actuation Nare route [place], Suspension daily as needed. fluorouraciL (EFUDEX) 5 [...] onset Afib who presents in transfer from [facility] with acute limb ischemia of the [...] status, full code. JOSEE Santiago 05/21/2022 Pager: [phone] Brannon Isaacs, PT - 05/21/2022 10:35 AM [...] plan as stated. Time IN / OUT: 0777-1490 Total Minutes, Physical Therapy: 25 Billing Code: 2 BOSTON Isaacs DPT Pager: [phone] Physical Therapy Inpatient Rehabilitation Department [place] Jean [...] 04/17/2021 in Pain and Spine Center at [facility] Weight 79.8 kg (175 lb 14.8 oz) [...] and plan of care per Dr. Mcnamara (batterboard setter). Please refer to her note above for [...] limb ischemia (thromboembolic) and he is a long-term smoker (1/2 ppd, recommend nicotine patch). His [...] to Hosp-Admission (Current) from 05/15/2022 in 4 General Acute Hospital Office Visit from 04/17/2021 in Pain and Spine Center at [facility] Weight 79.8 kg (175 lb 14.8 oz) [...] findings andplan of care per Dr. Mcnamara (batterboard setter). Please refer to her note above for [...] a mitral repair in 2000 (not at [facility]) with no CAD at that time. Currently, [...] AF and the first documented HR at [facility] was 125 bpm (presented to an an [...] onset Afib who presents in transfer from [facility] with acute limb ischemia of the [...] management following Dottie Hill APRN 05/20/2022 Pager: [phone] Laney Atkins RN - 05/20/2022 1:14 AM EDT Pt Koko transferred to room from [facility]. A&Ox4, oriented to room and call boo. Masimo and telemetry placed. In agreement with assessment as documented this evening by Nuris ASHLEY. No complaints at this time. Pt aware of NPO status and plan for cardiac cath in AM. Urinal provided. Resting comfortably in bed. Nuris Lester RN - 05/20/2022 1:09 AM EDT Pt. Transferred to [facility]. RN accompanied patient to floor and handed off to [facility] RN Dottie Hill APRN - 05/19/2022 10:02 AM EDT Vascular Surgery Progress Note Koko Zamora is a 81 y.o. male with w new onset Afib who presents in transfer from [facility] with acute limb ischemia of the [...] management following Dottie Hill APRN 05/19/2022 Pager: [phone] Emily Sauceda RN - 05/19/2022 6:28 AM EDT OUTCOME EVALUATION NOTE: OUTCOME SUMMARY: Patient AOx4, VSS on RA. Afib on tele. HR controlled w/ PRN metop, given x2. Denies CP, SOB, n/v. See flowsheets for NVC. Dressings to LLE CDI, prevena WV to groin intact. Voiding to urinal. LBM CHIEF LEGAL OFFICER, patient stating he will maybe try the [...] adequately without difficulty to bedside urinal. LBM CHIEF LEGAL OFFICER. Up to chair this AM with nursing staff. Worked with PT, tolerated well. Diet changed to regular at 1800.Plan is for cardiac cath on Friday. PLAN MOVING FORWARD: Bleeding precautions Pain management neurovascular checks PT/OT clinical laboratory aide INDIVIDUALIZED FALL PREVENTION INTERVENTIONS: Patient-specific fall risk [...] onset Afib who presents in transfer from [facility] with acute limb ischemia of the [...] mL Intravenous BID ??? PHENobarbitaL 0.12 mg/kg/dose (Gonzales) Oral BID ??? thiamine 100 mg Oral [...] management following Dottie Hill APRN 05/18/2022 Pager: [phone] Brannon Isaacs, PT - 05/18/2022 10:00 AM [...] Spine 07/20/2019 Bobby Marshall MD [facility] INTERVENTIONL RAD ??? IR VERTEBROPLASTY LUMBAR MULTIPLE LEVELS 07/20/2019 IR Vertebroplasty Lumbar Multiple Levels 07/20/2019 Bobby Marshall MD [facility] INTERVENTIONL RAD ??? IR VERTEBROPLASTY THORACIC SINGLE LEVEL 10/25/2020 IR Vertebroplasty Thoracic Single Level 10/25/2020 Matt Chisholm MD [facility] INTERVENTIONL RAD ??? PRO EMBLC/THRMBC FEMORAL POPLITEAL AORTO-ILIAC ARTERY Left 05/15/2022 EMBOLECTOMY OR THROMBECTOMY, FEMOROPOPLITEAL, AORTOILIAC ARTERY BY LEG INCISION (WRVU 19.48) performed by Fito Summers MD at [facility] MAIN OR Social History: Pt lives [...] in this evaluation. Time IN / OUT: 8132-3647 Total Minutes, Physical Therapy: 30 Billing Code: Basilio Isaacs, PT Pager: [phone] Physical Therapy Inpatient Rehabilitation Department Emily Sauceda RN - 05/18/2022 4:34 AM EDT OUTCOME EVALUATION NOTE: OUTCOME SUMMARY: Patient AOx4, VSS on 2LNC. Afib on tele. HR above 120, MD aware, PRN IV metop given x1, HR returned to 90's-low 100's. Denies CP, SOB, n/v. See flowsheets for NVC. Dressings to LLE CDI, prevena WV to groin intact. Voiding to urinal. LBM CHIEF LEGAL OFFICER. Heparin gtt therapeutic. Pain controlled. Patient sleeping [...] adequately without difficulty to bedside urinal. LBM CHIEF LEGAL OFFICER. Patient not OOB this shift. Currently NPO awaitingprocedure in mine laborer. PLAN MOVING FORWARD: Bleeding precautions Pain management neurovascular checks PT/OT NPO for mine laborer INDIVIDUALIZED FALL PREVENTION INTERVENTIONS: Patient-specific fall [...] the Emergency Department as a transfer from [facility] with left lower extremity limb ischemia. He went to [facility] and was startedon heparin and transferred to [facility] for evaluation by vascular surgery [...] he will will be going to the mine laborer for evaluation. Will defer PT eval at present but will see as ordered post cardiac catheritizaton. Social Hx:Pt lives with his Ursula in [place], [place] in a 2 level home in [...] WBAT LLE LISBET HERMAN PT Pager # [phone] In-Pt Rehab Medicine Dottie Hill APRN - 05/17/2022 7:42 AM EDT Vascular Surgery Progress Note Koko Zamora is a 81 y.o. male with w new onset Afib who presents in transfer from [facility] with acute limb ischemia of the [...] mL Intravenous BID ??? PHENobarbitaL 0.24 mg/kg/dose (Gonzales) Oral BID Followed by ??? [START ON 05/18/2022] PHENobarbitaL 0.12 mg/kg/dose (Gonzales) Oral BID ??? thiamine 100 mg Oral [...] management following Dottie Hill APRN 05/17/2022 Pager: [phone] Sary Dos Santos, RN - 05/17/2022 12:16 [...] onset Afib who presents in transfer from [facility] with acute limb ischemia of the [...] mL Intravenous BID ??? PHENobarbitaL 0.48 mg/kg/dose (Gonzales) Oral BID Followed by ??? [START ON 05/17/2022] PHENobarbitaL 0.24 mg/kg/dose (Gonzales) Oral BID Followed by ??? [START ON 05/18/2022] PHENobarbitaL 0.12 mg/kg/dose (Gonzales) Oral BID ??? thiamine 100 mg Oral [...] management following Edward Rodríguez MD 05/16/2022 Pager: [phone] Sary Dos Santos RN - 05/16/2022 12:52 [...] met 2129 Hand off to DION Ramirez [place] documented in this encounter H&P Notes Kerry [...] onset Afib who presents in transfer from [facility] with acute limb ischemia of the [...] Spine 07/20/2019 Bobby Marshall MD [facility] INTERVENTIONL RAD ??? IR VERTEBROPLASTY LUMBAR MULTIPLE LEVELS 07/20/2019 IR Vertebroplasty Lumbar Multiple Levels 07/20/2019 Bobby Marshall MD [facility] INTERVENTIONL RAD ??? IR VERTEBROPLASTY THORACIC SINGLE LEVEL 10/25/2020 IR Vertebroplasty Thoracic Single Level 10/25/2020 Matt Chisholm MD [facility] INTERVENTIONL RAD Social Hx: Social History [...] Refill ??? fluticasone propionate (FLONASE) 50 mcg/actuation [place], Suspension as needed. ??? fluorouraciL (EFUDEX) 5 [...] and consented. Tim Chicas MD 05/15/2022 Pager: [phone] documented in this encounter ED Notes Lc Harris PA - 05/15/2022 1:20 PM EDT ED Provider Note HPI: Koko Zamora is a 81 y.o. male with history of atrial fibrillation not on anticoagulation, and GI bleeding who presents to the Emergency Department as a transfer from [facility] with left lower extremity limb ischemia. Patient says that the symptoms started roughly 630 this morning when he developed severe pain in his left lower extremity. He went to [facility] and was started on heparin and transferred to [facility] for evaluation by vascular surgery. [...] lower extremity earlier today and went to [facility] where it was determined that he had ischemia of the left lower extremity. Vascular surgery [facility] was contacted and he was transferred here [...] orders before pt. Arrival. Pt. Arrived at [facility] by EMS at 1150, vascular team at [...] in an outpatient cardiac rehabilitation program at [facility] was discussed. Patient agrees to a referral to this program. Timing will depend on his recovery from Vascular surgery. He is going home w/VNA PT. I gave him the brochure for the program at [facility] for future reference. Care Management Discharge [...] information for follow-up Home Health & Hospice, [place] [address] [place] [address] Transportation: family or friend will provide Functional [...] *No Product type* / Secondary Insurance: [facility] Prescription Coverage: Yes This plan was formulated with input from patient and team. All are in agreement with plan. IP RS has communicated with [place] - for initial IMM. Shawn López RN (Jonas) RN/CM - Cellphone: [phone] Pager: [phone] Covering Service RN/CM Plan of Care - [...] catheterization, transferred in hospital bed accompanied by Roofing Machine Operator RN, remains on telemetry monitoring. Heparin gtt turned off at time of transfer. 1825 - pt to transfer to [facility] 429 following cardiac cath, report given to DOIN Waldron. Family directedto [facility] locations, belongings gathered [...] *No Product type* / Secondary Insurance: [facility] Last Physical Therapy Recommendation: home with home health, home with supervision with None Last Occupational Therapy Recommendation: with Plan for discharge is: Home w/ Services Outpatient Agency/Support Group Needs: None Home Health Services: Registered Nurse, Physical Therapy, Occupational Therapy Agency Referrals: I have met with the patient to: ?? discuss discharge planning needs. ?? provide the [facility], Office of Care Management letter from the Supervisor Wrapping Room pertaining to rehab referrals. ?? provide a letter describing our affiliations within the [facility] and educate about their right to choose where referrals are sent. ?? provide a list of Home Health Agencies / Durable Medical Equipment vendors which serve their preferred geographic area. ?? provided patient with [facility] Star Quality Rating handout. They have requested referrals to: [facility]. [address] [place] [phone] Note routed to a Loose Hand Packer who will communicate referrals to facilities and provide any required information. Transportation: family or friend will provide Barriers to discharge: None Plan going forward: Patient is going for a cardiac cath today and plan will come from there. Patientwas recently seen by PT and they recommend VNA at time of discharge. [place] was routed and pendedat this time. Care Management will continue to follow and assist with discharge planning and coordination of care as indicated. Anticipated Date of Discharge: 05/21/2022 Nataly RICHMOND RN Phone: [phone] Pager: [phone] Plan of Care - Laney Atkins RN [...] from the original note were not included. [facility] [place] [address] INPATIENT CARDIOLOGY CONSULT NOTE Date of Consultation: 05/17/2022 Admit Date: 05/15/2022 Hospital Day 2 days Reason for Consult: New afib Active Problems: Active Hospital Problems Diagnosis Limb ischemia Resolved Hospital Problems No resolved problems to display. HPI: Koko Zamora is a 81 y.o. male with a PMHx significant for MVP (s/p MV repair 2000), tobacco use, HLD, who presented to [facility] from OSH on 05/15 with acute limb ischemia of LLE and was found to be in atrial fibrillation. Patient had sudden onset LLE pain on 05/15 and presented to [facility], where he was started on heparin and transferred to [facility]. Upon arrival to [facility], patient was in atrial fib with RVR [...] Spine 07/20/2019 Bobby Marshall MD [facility] INTERVENTIONL RAD IR VERTEBROPLASTY LUMBAR MULTIPLE LEVELS 07/20/2019 IR Vertebroplasty Lumbar Multiple Levels 07/20/2019 Bobby Marshall MD [facility] INTERVENTIONL RAD IR VERTEBROPLASTY THORACIC SINGLE LEVEL 10/25/2020 IR Vertebroplasty Thoracic Single Level 10/25/2020 Matt Chisholm MD [facility] INTERVENTIONL RAD PRO EMBLC/THRMBC FEMORAL POPLITEAL AORTO-ILIAC ARTERY Left 05/15/2022 EMBOLECTOMY OR THROMBECTOMY, FEMOROPOPLITEAL, AORTOILIAC ARTERY BY LEG INCISION (WRVU 19.48) performed by Fito Summers MD at [facility] MAIN OR Allergies Allergen Reactions Aspirin Other (See Comments) GI bleed Out-Patient Medications: Medications Prior to Admission Medication Sig Dispense Refill Last Dose fluorouraciL (EFUDEX) 5 % Cream daily. CRESTOR 40 mg Tablet Take 40 mg by mouth daily. fluticasone propionate (FLONASE) 50 mcg/actuation [place], Suspension as needed. ascorbic acid, vitamin C, [...] 5 mL Intravenous BID PHENobarbitaL 0.24 mg/kg/dose (Gonzales) Oral BID Followed by [START ON 05/18/2022] PHENobarbitaL 0.12 mg/kg/dose (Gonzales) Oral BID thiamine 100 mg Oral Daily folic acid 1,000 mcg Oral Daily multivitamin with minerals 1 tablet Oral Daily heparin (porcine) infusion 1,200 Units/hr (05/17/22 0008) Family History: No family history on file. [...] ED to Hosp-Admission (Current) from 05/15/[address] [place] [address] Office Visit from 04/17/2021 in Pain and Spine Center at [facility] Weight 79.8 kg (175 lb 14.8 oz) [...] continue to follow Anne-Marie Larson MD Pager [phone] Clinic: [phone] 05/17/22 6:22 PM Initial Assessments - Ifrah [...] spouse would be surrogate decision maker per [place] surrogate decision making law. (Only good for 180 days) Any patient receiving care at [facility] must abide by [place] law. The hierarchy for surrogate decision making [...] (i) The agent with financial power of concrete mixing truck driver or a conservator appointed in accordance with [...] raised toilet seat Home Address confirmed as: [address] [place] [phone] Social & Family Supports: All names listed below confirmed with patient as Incorrect. Will notify toni to correct. Wifes address is same as and phone is [phone]. Extended Emergency Contact Information Primary Emergency Contact: Ursula Zamora Address: [address] [place] [address] [address] [place] [address] [facility] Relation: Spouse Current Care Provided by: [...] *No Product type* / Secondary Insurance: [facility] Prescription Coverage: Yes Preferred Pharmacy: [id number] - [place], [place] - [address] [facility] [address] [place] [address] [id number] - [place], [place] - [address] [facility] [address] [facility] [address] [place] Status: Patient is a : unable to assess Primary Care Provider: Bobby Das MD [phone] Patient/Caregiver Goals of Treatment: to walk again Potential Needs for Transition of Care: none noted per 05/16 IDR Transportation: family will provide Transportation Anticipated: family or friend will provide Concerns to be Addressed: no discharge needs identified Assessment: Patient is admitted to vascular surg service for left lower extremity limb ischemia Plan: Per PT OT recommendations . Has used Fluorofinder in the past. A member of the Care Management team will continue to monitor progress, follow for continuity of care and assist with transition of care planning. Ifrah Bell RN BSN Reeling OperatorOrthophoto Tech/D[place]man of Care Management Pager [phone] Brief Op Note - Erin Garza MD - 05/15/2022 5:04 PM EDT Brief Operative Note Patient Name: Koko Zamora : [id number] MR#: [id number] Case Date: 05/15/2022 Surgeon: Surgeon(s) and Role: [...] Pre-operative IV antibiotics: Ceftriaxone Op Note - rEin Garza MD - 05/15/2022 2:08 PM EDT [facility] Operative Note Patient Name: Koko Zamora : [id number] MR#: [id number] Case Date: 05/15/2022 Surgeon: Surgeon(s) and Role: [...] [facility] DR GASTROENTEROLOGY DEPT [place], [place] [address] (Wo rk) 09/05/2022 Appointment Cardiology Trinity Reid MD [facility] CARDIOLOGY [place], [place] [address] (Wo rk) 09/05/2022 Office Visit Cardiology Trinity Reid MD [facility] CARDIOLOGY [place], [place] [address] (Wo rk) Scheduled Referrals Name [...] Component Value Ref Test Analysis Performed At [facility] Range Method Time Signature VB Text Department: Vascular Surgery Lab VASCUBASE Report Patient: [id number] (KOKO ZAMORA) CPT: 47695 Referring Physician: FITO SUMMERS ?? Phone: Indications: s/p L AIR CONDITIONING INSULATION INSTALLER endart. Diabetes mellitus: no Findings: Right ?Pressure [...] Volume Laterality 06/13/2022 7:13 AM EDT Fito Sumemrs MD VASCULAR ORDERABLES Performing Organization Address City/State/ZIP [...] P athologist Signature Heparin UFH 0.42 IU/mL [facility] LABORATORY Comment: Heparin (anti-Xa) levels [...] Organization Address City/State/[place] [address] Differential, Automated (05/21/2022 6:15 AM EDT) P athologist Signature Neutrophils % 58.8 % [facility] LABORATORY Neutr Abs (ANC) 3.97 1.70 - [facility] 6.[address] [facility] x10(3)[facility] LABORATORY Lymphocytes % 25.2 % [facility] LABORATORY Lymphocytes Abs 1.7 0.[address] - [address] [facility] x10(3)[facility] LABORATORY Monocytes % 12.9 % [facility] LABORATORY Monocyte Abs 0.9 0.3 - [address] [facility] x10(3)[facility] LABORATORY Eosinophils % 2.1 % [facility] LABORATORY Eosinophils Abs 0.1 0.0 - [address] [facility] x10(3)[facility] LABORATORY Basophils % 0.4 % [facility] LABORATORY Basophils Abs 0.0 0.0 - [address] [facility] x10(3)[facility] LABORATORY Immature Gran % 0.60 % [facility] LABOR[facility]ORY Comment: Immature granulocytes(IG's)percentage an d absolute count will include metamyelocytes, myelocytes, and promyelo cytes. Blood smears from CBCs yielding IG's will be scanned manually for concor dance. If this scan disagrees with the automated IG or if promyelocytes are not ed, a manual differential will be performed. Rain Gran Abs 0.04 0.00 - 0.04 x10(3)/[facility] MAR Y [facility] LABORATORY Specimen Anatomical Collection Method Collection Time Receive d Time (Source) Location / / Volume Laterality Blood 05/21/2022 6:15 AM 2 6:38 EDT AM EDT Resulting Agency Comment Spec In Lab Edward Rodríguez MD HEMATOLOGY ORDERABLES Performing Organization Address City/State/ZIP [place] [address] (ABNORMAL) Hemogram (05/21/2022 6:15 AM EDT) [facility] Method Time Signature WBC 6.8 4.0 - 9.[address] [facility] x10(3)/[facility] LABORATORY RBC 3.59 (L) 4.58 - [facility] 5.[address] [facility] x10(6)/[facility] LABORATORY Hemoglobin 11.8 (L) 13.7 - [facility] 16.5 g/dL [facility] LABORATORY Hematocrit 34.5 (L) 40.5 - [facility] 48.5 % [facility] LABORATORY MCV 96.1 (H) 82.9 - [facility]1 [facility] LABORATORY MCH 32.9 (H) 27.5 - [facility] 32[facility] [facility] LABORATORY MCHC 34.2 32.0 - [facility] 35.7 g/dL [facility] LABORATORY Platelets 198 145 - [address] [facility] x10(3)/[facility] LABORATORY RDWSD 44.9 36.0 - [facility]0 [facility] LABORATORY RDWCV 12.6 11.4 - [facility] 13.8 % [facility] LABORATORY MPV 10.0 7.6 - 12.9 [facility] LABORATORY nRBC % Auto 0.3 % [facility] LABORATORY nRBC Abs Auto 0.020 (H) 0.000 - [facility] 0[facility] [facility] x10(3)/[facility] LABORATORY Specimen Anatomical Collection Method Collection Time Receive d Time (Source) Location / / Volume Laterality Blood 05/21/2022 6:15 AM 2 6:38 EDT AM EDT Resulting Agency Comment Spec In Lab Edward Rodríguez MD HEMATOLOGY ORDERABLES Performing Organization Address City/State/ZIP Code Phon e Number [place] [id number] HOSP[address] LABORATORY Drive EKG 12 Lead (05/20/2022 7:04 PM EDT) Component Value Ref Range Test Analysis Performed Pathologis t Method Time At Signature Ventricular rate 101 BPM MUSE SYSTEM QRS Duration 116 ms MUSE SYSTEM Q-T Interval 378 ms MUSE SYSTEM QTC Calculated 490 ms MUSE SYSTEM (Bezet) Calculated R [place] -53 degrees MUSE SYSTEM Calculated T [place] 101 degrees MUSE SYSTEM INTERPRETATION Atrial fibrillation [...] Laterality Volume Narrative 05/20/2022 7:09 PM EDT ?[facility] ? Cardiac Cathete rization/Intervention Report ? Patient Name: Koko Zamora. ? Procedure Date: 05/20/2022 ? A #: [id number] ? Primary Physician: Abundio Servin ? Case #: [id number] ? File Name: [id number] ? Catheterization Order Number: [id number] ? [facility] ? Final Report [place], [place] ? Patient Name: ? Koko J. Klarissa uson ? ID#: ?[id number] ? : ?1940 ? Procedure Date: ? May 20, 2022 ?Case #: ? [id number] ? Room: ? 1 ? Case Physician: ? Abundio roldan, MAlmitaD. ? Start: ?17:16 ? Admission: ??05/15/2022 ? Referring Physician: ??Jc MalikA. ?Discharge: ??05/21/2022 ? Procedures: ?* Coronary Angiography ?* Left Heart Catheterization ?* Coronary Ultrasound ?* Coronary Angioplasty ?* Coronary Stent Insertion ? History ?Koko SullivanAlmita Zamora is a 81 year old man. [...] procedure was Urgent. 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 Chest pain [...] ?3.5 guiding catheter and a 3.5 Fr [facility] [place] [address] ??20 Mhz. ??Imaging ?was successful. ??Image [...] premounted 2. 75 x 30 mm Rudy Holland (AMPARO) was deployed ? with a maximum [...] ?modification of this regimen. C [facility] Interventional Cardiology for ?questions. ?The 1 year [...] note might be different from the original. [facility] Cardiac Catheterization/Intervention Re port Patient Name: Koko Zamora Procedure Date: 05/20/2022 A #: [id number] Primary Physician: Abundio Servin Case #: File Name: [id number] Catheterization Order Number: [id number] [facility] Final Report [place], [place] Patient Name: Koko Zamora ID#: [id number] : 1940 Procedure Date: May 20, 2022 [...] designated a s ASA Class IV. The [facility] clinical frailty scale is 3: Managing Well. [...] e was Urgent. 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 C hest pain [...] 3.5 guiding catheter and a 3.[address] [facility] [address] [address] 20 Mhz. Imaging was successful. Image [...] A premounted 2.75 x 30 mm Rudy Holland (AMPARO) was deployed with a maximum inflation [...] require modification of this regimen. Consult D [facility] Interventional Cardiology for questions. The 1 year [...] Signature POC Glucose 123 65 - 199 [facility] mg/dL [facility] LABORATORY Comment: Supplemental ranges: <140 mg/dL before meals <180 mg/dL all other times of the day Specimen Anatomical Collection Method Collection Time Receive d Time (Source) Location / / Volume Laterality Blood 05/20/2022 5:42 PM 2 5:42 EDT PM EDT Fito Summers MD POINT OF CARE TEST ORDERABLE S Performing Organization Address City/State/Z[place] [address] (ABNORMAL) BMP w/fasting Glucose (05/20/2022 10:50 AM EDT) P athologist Signature Glucose 152 (H) 65 - 99 [facility] Fasting mg/dL [facility] LABORATORY Comment: ?Fasting* Glucose Interpretive C [...] of Diabetes Mellitus, Position Statement from the [place] [employer]. ??Diabete s Care, Volume 33, Supplement 1, Nov 2009 BUN 11 10 - 20 mg/dL [facility] LABORATORY Creatinine 0.63 (L) 0.80 - 1.50 mg/dL [facility] LABORATORY Sodium 137 135 - [...] estions. Chloride 103 98 - 107 mmol/L [facility] LABORATORY CO2 24 22 - 31 mmol/L [facility] LABORATORY Anion Gap 10 5 - 15 mmol/L [facility] LABORATORY Calcium 8.7 8.5 - 10.5 mg/dL [facility] LABORATORY Estimated GFR 97 >=60 mL/min/1.73 m?? [facility] LABORATORY [...] Address City/State/ZIP [place] [address] Heparin (unfractionated) Level (05/20/2022 5:02 AM EDT) P athologist Signature Heparin UFH 0.57 IU/mL [facility] LABORATORY Comment: Heparin (anti-Xa) levels [...] Address City/State/ZIP [place] [address] (ABNORMAL) Differential, Automated (05/20/2022 5:02 AM EDT) Patholo gist Method Time Signature Neutrophils % 58.1 % [facility] LABORATORY Neutr Abs (ANC) 4.52 1.70 - [facility] 6.[address] [facility] x10(3)/[facility] LABORATORY Lymphocytes % 24.1 % [facility] LABORATORY Lymphocytes Abs 1.9 0.9 - 3.[address] [facility] x10(3)/[facility] LABORATORY Monocytes % 13.8 % [facility] LABORATORY Monocyte Abs 1.1 (H) 0.3 - 0.[address] [facility] x10(3)/[facility] LABORATORY Eosinophils % 2.6 % [facility] LABORATORY Eosinophils Abs 0.2 0.0 - 0.[address] [facility] x10(3)[facility] LABORATORY Basophils % 0.8 % [facility] LABORATORY Basophils Abs 0.1 0.0 - 0.[address] [facility] x10(3)/[facility] LABORATORY Immature Gran % 0.60 % [facility] LABORATORY Comment: Immature granulocytes(IG's)percentage an d absolute count will include metamyelocytes, myelocytes, and promyelo cytes. Blood smears from CBCs yielding IG's will be scanned manually for concor dance. If this scan disagrees with the automated IG or if promyelocytes are not ed, a manual differential will be performed. Rain Gran Abs 0.05 (H) 0.00 - 0.04 x10(3)/[facility] LABORATORY Specimen Anatomical Collection Method Collection Time Receive d Time (Source) Location / / Volume Laterality Blood 05/20/2022 5:02 AM 5:19 EDT AM EDT Resulting Agency Comment Spec In Lab Edward Rodríguez MD HEMATOLOGY ORDERABLES Performing Organization Address City/State/ZIP [place] [address] (ABNORMAL) Hemogram (05/20/2022 5:02 AM EDT) Analysis Performed At Patho logist Time Signature WBC 7.8 4.0 - 9.[address] [facility] x10(3)/[facility] LABORATORY RBC 3.53 (L) 4.58 - [facility] 5.[address] [facility] x10(6)/[facility] LABORATORY Hemoglobin 11.4 (L) 13.7 - [facility] 16.5 g/dL [facility] LABORATORY Hematocrit 34.3 (L) 40.5 - [facility] 48.5 % [facility] LABORATORY MCV 97.2 (H) 82.9 - [facility] 93.1 [facility] LABORATORY MCH 32.3 (H) 27.5 - [facility] 32.[address] [facility] LABORATORY MCHC 33.2 32.0 - [facility] 35.7 g/dL [facility] LABORATORY Platelets 181 145 - [address] [facility] x10(3)/[facility] LABORATORY RDWSD 46.4 (H) 36.0 - [facility] 45.0 [facility] LABORATORY RDWCV 13.0 11.4 - [facility] 13.8 % [facility] LABORATORY MPV 10.4 7.6 - 12.9 [facility] LABORATORY nRBC % Auto 0.0 % [facility] LABORATORY nRBC Abs Auto 0.000 0.000 - [facility] 0.[address] [facility] x10(3)/[facility] LABORATORY Specimen Anatomical Collection Method Collection Time Receive d Time (Source) Location / / Volume Laterality Blood 05/20/2022 5:02 AM 2 5:19 EDT AM EDT Resulting Agency Comment Spec In Lab Edward Rodríguez MD HEMATOLOGY ORDERABLES Performing Organization Address City/State/Z[place] [address] Heparin (unfractionated) Level (05/19/2022 3:26 AM EDT) P athologist Signature Heparin UFH 0.59 IU/mL [facility] LABORATORY Comment: Heparin (anti-Xa) levels [...] Address City/State/ZIP [place] [address] (ABNORMAL) Differential, Automated (05/19/2022 3:26 AM EDT) [facility] Signature Neutrophils % 62.1 % [facility] LABORATORY Neutr Abs (ANC) 4.59 1.70 - [facility] 6.[address] [facility] x10(3)/[facility] LABORATORY Lymphocytes % 22.1 % [facility] LABORATORY Lymphocytes Abs 1.6 0.9 - 3.[address] [facility] x10(3)/[facility] LABORATORY Monocytes % 13.5 % [facility] LABORATORY Monocyte Abs 1.0 (H) 0.3 - 0.[address] [facility] x10(3)/[facility] LABORATORY Eosinophils % 1.3 % [facility] LABORATORY Eosinophils Abs 0.1 0.0 - 0.[address] [facility] x10(3)/[facility] LABORATORY Basophils % 0.5 % [facility] LABORATORY Basophils Abs 0.0 0.0 - 0.[address] [facility] x10(3)/[facility] LABORATORY Immature Gran % 0.50 % [facility] LABORATORY Comment: Immature granulocytes(IG's)percentage an d absolute count will include metamyelocytes, myelocytes, and promyelo cytes. Blood smears from CBCs yielding IG's will be scanned manually for concor dance. If this scan disagrees with the automated IG or if promyelocytes are not ed, a manual differential will be performed. Rain Gran Abs 0.04 0.00 - 0.04 x10(3)/[facility] Y [facility] LABORATORY Specimen Anatomical Collection Method Collection Time Receive d Time (Source) Location / / Volume Laterality Blood 05/19/2022 3:26 AM 2 3:59 EDT AM EDT Resulting Agency Comment Spec In Lab Edward Rodríguez MD HEMATOLOGY ORDERABLES Performing Organization Address City/State/ZIP [place] [address] (ABNORMAL) Hemogram (05/19/2022 3:26 AM EDT) Analysis Performed At [facility] logist Time Signature WBC 7.4 4.0 - 9.[address] [facility] x10(3)/[facility] LABORATORY RBC 3.74 (L) 4.58 - [facility] 5.[address] [facility] x10(6)/[facility] LABORATORY Hemoglobin 12.1 (L) 13.7 - [facility] 16.5 g/dL [facility] LABORATORY Hematocrit 36.4 (L) 40.5 - [facility] 48.5 % [facility] LABORATORY MCV 97.3 (H) 82.9 - [facility] 93.1 [facility] LABORATORY MCH 32.4 (H) 27.5 - [facility] 32.[address] [facility] LABORATORY MCHC 33.2 32.0 - [facility] 35.7 g/dL [facility] LABORATORY Platelets 168 145 - [address] [facility] x10(3)/[facility] LABORATORY RDWSD 46.9 (H) 36.0 - [facility] 45.0 [facility] LABORATORY RDWCV 13.0 11.4 - [facility] 13.8 % [facility] LABORATORY MPV 10.5 7.6 - 12.[address] [facility] [address] [facility] LABORATORY nRBC % Auto 0.0 % [facility] LABORATORY nRBC Abs Auto 0.000 0.000 - [facility] 0.[address] [facility] x10(3)/[facility] LABORATORY Specimen Anatomical Collection Method Collection Time Receive d Time (Source) Location / / Volume Laterality Blood 05/19/2022 3:26 AM 3:59 EDT AM EDT Resulting Agency Comment Spec In Lab Edward Rodríguez MD HEMATOLOGY ORDERABLES Performing Organization Address City/State/ZIP [place] [address] TSH (05/18/2022 8:00 PM EDT) P athologist Signature TSH 2.27 0.27 - 4.20 [facility] mcIU/mL [facility] LABORATORY Comment: Reference Interval (mcIU/mL): Females: ??First Trimester: 0.23-3.88 ??Second Trimester: 0.22-3.90 ??Third Trimester: 0.44-4.66 Specimen Anatomical Collection Method Collection Time Receive d Time (Source) Location / / Volume Laterality Blood 05/18/2022 8:00 PM 2 8:06 EDT PM EDT Resulting Agency Comment Spec In Lab Fito Summers MD CHEMISTRY ORDERABLES Performing Organization Address City/State/ZIP [place] [address] (ABNORMAL) Differential, Automated (05/18/2022 3:34 AM EDT) [facility] Method Time Signature Neutrophils % 67.2 % [facility] LABORATORY Neutr Abs (ANC) 5.89 1.70 - [facility] 6.[address] [facility] x10(3)/[facility] LABORATORY Lymphocytes % 17.1 % [facility] LABORATORY Lymphocytes Abs 1.5 0.9 - 3.[address] [facility] x10(3)/[facility] LABORATORY Monocytes % 13.6 % [facility] LABORATORY Monocyte Abs 1.2 (H) 0.3 - 0.[address] [facility] x10(3)/[facility] LABORATORY Eosinophils % 1.0 % [facility] LABORATORY Eosinophils Abs 0.1 0.0 - 0.[address] [facility] x10(3)/[facility] LABORATORY Basophils % 0.6 % [facility] LABORATORY Basophils Abs 0.0 0.0 - 0.[address] [facility] x10(3)/[facility] LABORATORY Immature Gran % 0.50 % [facility] LABORATORY Comment: Immature granulocytes(IG's)percentage an d absolute count will include metamyelocytes, myelocytes, and promyelo cytes. Blood smears from CBCs yielding IG's will be scanned manually for concor dance. If this scan disagrees with the automated IG or if promyelocytes are not ed, a manual differential will be performed. Rain Gran Abs 0.04 0.00 - 0.04 x10(3)/[facility] Y [facility] LABORATORY Specimen Anatomical Collection Method Collection Time Receive d Time (Source) Location / / Volume Laterality Blood 05/18/2022 3:34 AM 2 3:48 EDT AM EDT Resulting Agency Comment Spec In Lab Edward Rodríguez MD HEMATOLOGY ORDERABLES Performing Organization Address City/State/ZIP [place] [address] (ABNORMAL) Hemogram (05/18/2022 3:34 AM EDT) Analysis Performed At Patho logist Time Signature WBC 8.8 4.0 - 9.[address] [facility] x10(3)/[facility] LABORATORY RBC 3.45 (L) 4.58 - [facility] 5.[address] [facility] x10(6)/[facility] LABORATORY Hemoglobin 11.2 (L) 13.7 - [facility] 16.5 g/dL [facility] LABORATORY Hematocrit 33.0 (L) 40.5 - [facility] 48.5 % [facility] LABORATORY MCV 95.7 (H) 82.9 - [facility].1 [facility] LABORATORY MCH 32.5 (H) 27.5 - [facility] 32.[address] [facility] LABORATORY MCHC 33.9 32.0 - [facility] 35.7 g/dL [facility] LABORATORY Platelets 130 (L) 145 - [address] [facility] x10(3)/[facility] LABORATORY RDWSD 46.2 (H) 36.0 - [facility] 45.0 [facility] LABORATORY RDWCV 13.2 11.4 - [facility] 13.8 % [facility] LABORATORY MPV 10.8 7.6 - 12.9 [facility] LABORATORY nRBC % Auto 0.0 % [facility] LABORATORY nRBC Abs Auto 0.000 0.000 - [facility] 0.[address] [facility] x10(3)/[facility] LABORATORY Specimen Anatomical Collection Method Collection Time Receive d Time (Source) Location / / Volume Laterality Blood 05/18/2022 3:34 AM 3:48 EDT AM EDT Resulting Agency Comment Spec In Lab Edward Rodríguez MD HEMATOLOGY ORDERABLES Performing Organization Address City/State/ZIP [place] [address] Heparin (unfractionated) Level (05/18/2022 3:34 AM EDT) P athologist Signature Heparin UFH 0.59 IU/mL [facility] LABORATORY Comment: Heparin (anti-Xa) levels [...] Summers MD HEMATOLOGY ORDERABLES Performing Organization Address City/[facility]/ZIP [place] [address] Magnesium (05/17/2022 3:33 AM EDT) athologist Signature Magnesium 0.76 0.69 - 1.[address] [facility] mmol/L [facility] LABORATORY Specimen Anatomical Collection Method Collection Time Receive d Time (Source) Location / / Volume Laterality Blood Venous Draw / 05/17/2022 3:33 AM 05/17/20 4:05 Unknown EDT AM EDT Resulting Agency Comment Spec In Lab Dottie Hill APRN CHEMISTRY ORDERABLES Performing Organization Address City/State/Z[place] [address] (ABNORMAL) Basic Metabolic Panel (non-fasting) (05/17/2022 3:33 AM EDT) athologist Signature Glucose Lvl 158 65 - [address] [facility] mg/dL [facility] LABORATORY Comment: Diabetes: >=200 mg/dL plus symp toms BUN 12 10 - 20 mg/dL [facility] LABORATORY Creatinine 0.74 (L) 0.80 - 1.50 mg/dL [facility] LABORATORY Sodium 137 135 - 145 mmol/L [facility] LABORATORY Potassium 3.5 3.5 - 5.0 mmol/L [facility] LABORATORY Comment: Please note: ??Patients with WBC >100,00 0 may have falsely elevated Potassium levels. ??For accurate Potassium quantif ication in these patients send serum separator tube (gold top) for subsequent determinations. ??Contact the Clinical Chemistry Laboratory if there are any qu estions. Chloride 102 98 - 107 mmol/L [facility] LABORATORY CO2 25 22 - 31 mmol/L [facility] LABORATORY Anion Gap 10 5 - 15 mmol/L [facility] LABORATORY Calcium 8.4 (L) 8.5 - 10.5 mg/dL [facility] LABORATORY Estimated GFR 92 >=60 mL/min/1.73 m?? [facility] LABORATORY [...] Address City/State/ZIP [place] [address] (ABNORMAL) Differential, Automated (05/17/2022 3:33 AM EDT) [facility] gist Method Time Signature Neutrophils % 65.5 % [facility] LABORATORY Neutr Abs (ANC) 6.84 (H) 1.70 - [facility] 6.[address] [facility] x10(3)/[facility] LABORATORY Lymphocytes % 19.7 % [facility] LABORATORY Lymphocytes Abs 2.1 0.9 - 3.[address] [facility] x10(3)/[facility] LABORATORY Monocytes % 13.1 % [facility] LABORATORY Monocyte Abs 1.4 (H) 0.3 - 0.[address] [facility] x10(3)/[facility] LABORATORY Eosinophils % 0.6 % [facility] LABORATORY Eosinophils Abs 0.1 0.0 - 0.[address] [facility] x10(3)/[facility] LABORATORY Basophils % 0.6 % [facility] LABORATORY Basophils Abs 0.1 0.0 - 0.[address] [facility] x10(3)/[facility] LABORATORY Immature Gran % 0.50 % [facility] LABORATORY Comment: Immature granulocytes(IG's)percentage an d absolute count will include metamyelocytes, myelocytes, and promyelo cytes. Blood smears from CBCs yielding IG's will be scanned manually for concor dance. If this scan disagrees with the automated IG or if promyelocytes are not ed, a manual differential will be performed. Rain Gran Abs 0.05 (H) 0.00 - 0.04 x10(3)/[facility] LABORATORY Specimen Anatomical Collection Method Collection Time Receive d Time (Source) Location / / Volume Laterality Blood 05/17/2022 3:33 AM 3:53 EDT AM EDT Resulting Agency Comment Spec In Lab Edward Rodríguez MD HEMATOLOGY ORDERABLES Performing Organization Address City/State/ZIP [place] [address] (ABNORMAL) Hemogram (05/17/2022 3:33 AM EDT) Analysis Performed At Patho logist Time Signature WBC 10.4 (H) 4.0 - 9.[address] [facility] x10(3)/[facility] LABORATORY RBC 3.72 (L) 4.58 - [facility] 5.[address] [facility] x10(6)/[facility] LABORATORY Hemoglobin 12.0 (L) 13.7 - [facility] 16.5 g/dL [facility] LABORATORY Hematocrit 36.4 (L) 40.5 - [facility] 48.5 % [facility] LABORATORY MCV 97.8 (H) 82.9 - [facility] 93.1 [facility] LABORATORY MCH 32.3 (H) 27.5 - [facility] 32.[address] [facility] LABORATORY MCHC 33.0 32.0 - [facility] 35.7 g/dL [facility] LABORATORY Platelets 149 145 - [address] [facility] x10(3)/[facility] LABORATORY RDWSD 48.7 (H) 36.0 - [facility] 45.0 [facility] RDWCV 13.5 11.4 - [facility] 13.8 % [facility] LABORATORY MPV 10.6 7.6 - 12.9 [facility] LABORATORY nRBC % Auto 0.0 % [facility] LABORATORY nRBC Abs Auto 0.000 0.000 - [facility] 0.[address] [facility] x10(3)/[facility] LABORATORY Specimen Anatomical Collection Method Collection Time Receive d Time (Source) Location / / Volume Laterality Blood 05/17/2022 3:33 AM 3:53 EDT AM EDT Resulting Agency Comment Spec In Lab Edward Rodríguez MD HEMATOLOGY ORDERABLES Performing Organization Address City/State/ZIP [place] [address] (ABNORMAL) Urinalysis Microscopic Exam (05/16/2022 11:15 PM EDT) P athologist Signature RBC UA 8 (H) 0 - 3 /HPF [facility] LABORATORY WBC UA 2 0 - 3 /HPF [facility] LABORATORY Specimen Anatomical Collection Method Collection Time Receive d Time (Source) Location / / Volume Laterality Clean Catch 05/16/2022 11:15 05/16/2022 Urine PM EDT 11:30 PM EDT Resulting Agency Comment Spec In Lab Barbie Ashraf MD URINE ORDERABLES Performing Organization Address City/State/ZIP Code Phon e Number [place] [id number] HOSPITAL LABORATORY Drive (ABNORMAL) Urinalysis with reflex Culture (05/16/2022 11:15 PM EDT) Patholo gist Method Time Signature Glucose UA Negative Negative [facility] mg/dL [facility] LABORATORY Protein UA Negative Negative [facility] mg/dL [facility] LABORATORY Bilirubin UA Negative Negative [facility] mg/dL [facility] LABORATORY Comment: Clinical correlation required for positi ve Urine Bilirubin results as false positive may occur with some drugs and d rug related products. If a false positive is suspected a serum total bili quarles should be considered if clinically indicated. Urobilinogen UA Normal Normal mg/dL [facility] pH UA 6.0 5.0 - 8.0 [facility] Blood UA Small (A) Negative mg/dL [facility] Ketones UA Trace (A) Negative mg/dL [facility] Nitrite UA Negative Negative [facility] Leukocytes UA Negative Negative [facility] LABORATORY Appearance UA Clear Clear [facility] Spec [place] UA 1.021 1.005 - 1.030 [facility] Color UA Yellow Yellow [facility] Culture Reflexed No [facility] Specimen Anatomical Collection Method Collection Time Receive d Time (Source) Location / / Volume Laterality Clean Catch 05/16/2022 11:15 05/16/2022 Urine PM EDT 11:30 PM EDT Resulting Agency Comment Spec In Lab Fito Summers MD URINE ORDERABLES Performing Organization Address City/State/ZIP [place] [address] Heparin (unfractionated) Level (05/16/2022 10:59 PM EDT) P athologist Signature Heparin UFH 0.65 IU/mL [facility] LABORATORY Comment: Specimen drawn more [...] Organization Address City/State/ZIP Code Phon e Number [place] [id number]OSPITAL LAB[address]ORY [address] XR Chest One View [...] have questions please contact the health rn primary care that requested your imaging first. ? Electronically signed by: Tiffanie George MD , [facility] ([phone]), at 05/16/2022 9:27 PM Narrative 05/16/2022 9:27 [...] have questions please contact the health rn primary care that requested your imaging first. Electronically signed by: Tiffanie George MD , [facility] ([phone]), at 05/16/2022 9:27 PM Fito Summers MD IMG DX ORDERABLES EKG 12 Lead (05/16/2022 8:57 PM EDT) Component Value Ref Range Test Analysis Performed Pathologis t Method Time At Signature Ventricular rate 117 BPM MUSE SYSTEM QRS Duration 112 ms MUSE SYSTEM Q-T Interval 346 ms MUSE SYSTEM QTC Calculated 482 ms MUSE SYSTEM (Bezet) Calculated R [place] -48 degrees MUSE SYSTEM Calculated T [place] 111 degrees MUSE SYSTEM INTERPRETATION Atrial fibrillation with rapid ventricular response MUSE SYSTEM Left anterior fascicular block Minimal voltage criteria for LVH, may be normal variant ( [place]ze product ) Nonspecific ST and T wave [...] P athologist Signature Heparin UFH 0.53 IU/mL [facility] LABORATORY Comment: Heparin (anti-Xa) levels [...] Address City/State/ZIP [place] [address] ECHOCARDIOGRAM COMPLETE W CONTRAST (05/16/2022 12:49 PM EDT) P athologist Signature EF 28 HEARTLAB SYSTEM Anatomical Region Laterality Modality Cardiac Other Specimen (Source) Anatomical Collection Method Collection Time Re ceived Time Location / / Volume Laterality 05/16/2022 11:22 AM EDT Narrative 05/16/2022 1:54 PM EDT ?[facility] ? Medical Center ?[address] ? [place] [address] ?Voice: ?Fax: ? Echocardiogram Report Name: ZAMORAKOKO ?Study Date: 05/16/2022 11:22 AM ? Patient Location: 3WST 0303 B : 1940 ? Height: 67.5 in ? Account: [id number] Age: 81 yrs ? Weight: 176 lb Gender: Male ?BSA: 1.9 m2 Ordering Physician: FITO SUMMERS Referring Physician: MALI FLORIAN Performed By: Jolene Bernard RDCS Exam Location: [facility]. Interpretation Summary Left ventricle is mildly [...] and LV systolic dysfunction are new. Procedure Complete-[id number]. Image enhancement Optiso n was used for [...] note might [place] [id number] Voice: Fax: Echocardiogram Report Name: KOKO ZAMORA Study Date: 05/2022 11:22 AM Patient Location: [address] [place] [address] : 1940 Height: 67.5 in Account: [id number] Age: 81 yrs Weight: 176 lb Gender: Male BSA: 1.9 m2 Ordering Physician: FITO SUMMERS Referring Physician: MALI FLORIAN Performed By: Jolene Bernard RDCS Exam Location: [facility]. Interpretation Summary Left ventricle is mildly [...] and LV systolic dysfunction are new. Procedure Complete-[id number]. Image enhancement Optiso n was used for both Doppler and ventricular definition. Suboptimal quali ty. The rhythm is atrial fibrillation. Left Ventricle Left ventricle is mildly dilated. Mildly increased thickness of the basal septum with no obstruction to LV outflow. Left ventricular systolic function is severely reduced. The left ventricular ejection f raction is 28% by Agxiola's biplane. There are segmental wall motion abnormalities. [...] 5 - 6-14 large Aneurysmal 15-16 diffuse Ftio Summers MD ECHO ORDERABLES (ABNORMAL) Differential, Automated (05/16/2022 3:01 AM EDT) [facility] Method Time Signature Neutrophils % 78.8 % [facility] Neutr Abs (ANC) 9.11 (H) 1.70 - [facility] 6.[address] [facility] x10(3)/[facility] LABORATORY Lymphocytes % 9.4 % [facility] Lymphocytes Abs 1.1 0.9 - 3.[address] [facility] x10(3)/[facility] LABORATORY Monocytes % 10.9 % [facility] Monocyte Abs 1.3 (H) 0.3 - 0.[address] [facility] x10(3)/[facility] LABORATORY Eosinophils % 0.0 % [facility] Eosinophils Abs 0.0 0.0 - 0.[address] [facility] x10(3)/[facility] LABORATORY Basophils % 0.3 % [facility] Basophils Abs 0.0 0.0 - 0.[address] [facility] x10(3)/[facility] LABORATORY Immature Gran % 0.60 % [facility] Comment: Immature granulocytes(IG's)percentage an d absolute count will include metamyelocytes, myelocytes, and promyelo cytes. Blood smears from CBCs yielding IG's will be scanned manually for concor dance. If this scan disagrees with the automated IG or if promyelocytes are not ed, a manual differential will be performed. Rain Gran Abs 0.07 (H) 0.00 - 0.04 x10(3)/[facility] LABORATORY Specimen Anatomical Collection Method Collection Time Receive d Time (Source) Location / / Volume Laterality Blood 05/16/2022 3:01 AM 3:36 EDT AM EDT Resulting Agency Comment Spec In Lab Erin Garza MD HEMATOLOGY ORDERABLES Performing Organization Address City/State/ZIP [place] [address] (ABNORMAL) Hemogram (05/16/2022 3:01 AM EDT) Analysis Performed At Patho logist Time Signature WBC 11.6 (H) 4.0 - 9.[address] [facility] x10(3)/[facility] LABORATORY RBC 3.62 (L) 4.58 - [facility] 5.[address] [facility] x10(6)/[facility] LABORATORY Hemoglobin 12.0 (L) 13.7 - [facility] 16.5 g/dL [facility] Hematocrit 35.3 (L) 40.5 - [facility] MCV 97.5 (H) 82.9 - [facility] 93.1 [facility] LABORATORY MCH 33.1 (H) 27.5 - [facility] 32.[address] [facility] MCHC 34.0 32.0 - [facility] 35.7 g/dL [facility] Platelets 151 145 - [address] [facility] x10(3)/[facility] LABORATORY RDWSD 47.6 (H) 36.0 - [facility] 45.0 [facility] LABORATORY RDWCV 13.3 11.4 - [facility] 13.8 % [facility] MPV 10.5 7.6 - 12.9 [facility] LABORATORY nRBC % Auto 0.0 % [facility] nRBC Abs Auto 0.000 0.000 [facility] 0.[address] [facility] x10(3)/[facility] LABORATORY Specimen Anatomical Collection Method Collection Time Receive d Time (Source) Location / / Volume Laterality Blood 05/16/2022 3:01 AM 2 3:36 EDT AM EDT Resulting Agency Comment Spec In Lab Erin Garza MD HEMATOLOGY ORDERABLES Performing Organization Address City/State/ZIP Code Phon e Number [address] Phosphorus (05/16/2022 3:01 AM EDT) athologist Signature Phosphorus 3.7 2.5 - 4.[address] [facility] mg/dL [facility] Specimen Anatomical Collection Method Collection Time Receive d Time (Source) Location / / Volume Laterality Blood 05/16/2022 3:01 AM 2 3:36 EDT AM EDT Resulting Agency Comment Spec In Lab Fito Summers MD CHEMISTRY ORDERABLES Performing Organization Address City/[facility]/ZIP Code Phon e Number [address] Magnesium (05/16/2022 3:01 AM EDT) athologist Signature Magnesium 0.77 0.69 - 1.07 [facility] mmol/L [facility] Specimen Anatomical Collection Method Collection Time Receive d Time (Source) Location / / Volume Laterality Blood 05/16/2022 3:01 AM 2 3:36 EDT AM EDT Resulting Agency Comment Spec In Lab Fito Summers MD CHEMISTRY ORDERABLES Performing Organization Address City/[facility]/ZIP [place] [address] (ABNORMAL) Basic Metabolic Panel (non-fasting) (05/16/2022 3:01 AM EDT) P athologist Signature Glucose Lvl 222 (H) 65 - [address] [facility] mg/dL [facility] Comment: Diabetes: >=200 mg/dL plus symp toms BUN 12 10 - 20 mg/dL [facility] Creatinine 0.66 (L) 0.80 - 1.50 mg/dL [facility] Sodium 138 135 - 145 mmol/L [facility] Potassium 4.5 3.5 - 5.0 mmol/L [facility] Comment: Please note: ??Patients with WBC >100,00 0 may have falsely elevated Potassium levels. ??For accurate Potassium quantif ication in these patients send serum separator tube (gold top) for subsequent determinations. ??Contact the Clinical Chemistry Laboratory if there are any qu estions. Chloride 108 (H) 98 - 107 mmol/L [facility] CO2 22 22 - 31 mmol/L [facility] Anion Gap 8 5 - 15 mmol/L [facility] Calcium 8.2 (L) 8.5 - 10.5 mg/dL [facility] Estimated GFR 95 >=60 mL/min/1.73 m?? [facility] [...] Address City/State/ZIP [place] [address] (ABNORMAL) BLOOD GAS 2 ARTERIAL (05/15/2022 3:33 PM EDT) Analysis Performed At Patho logist Time Signature pH Art 7.33 (L) 7.35 - [facility] [address] [facility] pCO2 Art 41 35 - [address] [facility] mmHg [facility] pO2 Art 131 (H) 85 - 104 [facility] LABORATORY HCO3 Art 21.1 20.0 - [facility] 26.[address] [facility] mmol/L [facility]ORATORY BE Art -4.8 (L) -3.0 - 3.[address] [facility] mmol/L [facility] Hgb Blood Gas 13.4 (L) 13.7 - [facility] 16.5 g/dL [facility] O2HB Art 96.9 94.0 - [facility] 97.0 % [facility] COHB Art 1.4 % [facility] Comment: Nonsmokers: 0.5-1.5% COHB Smokers: Variable, but usually less than 10% Toxic: 20-30% COHB Lethal: Greater than 60% COHB METHB Art 0.3 <=1.5 % [facility] Na Whole Blood 139 135 - 145 mmol/L [facility] K Whole Blood 3.8 3.5 - 5.0 mmol/L [facility] Comment: Please note: Patients with WBC >100,000 may have falsely elevated Potassium levels. Contact the Clinical Chemistry L aboratory if there are any questions. ICa Whole Blood 1.32 1.15 - 1.33 mmol/L [facility] [...] Address City/State/ZIP [place] [address] (ABNORMAL) BLOOD GAS 2 ARTERIAL (05/15/2022 2:06 PM EDT) Analysis Performed At Patho logist Time Signature pH Art 7.39 7.35 - [facility] [address] [facility] pCO2 Art 35 35 - [address] [facility] mmHg [facility] pO2 Art 135 (H) 85 - 104 [facility] LABORATORY HCO3 Art 20.8 20.0 - [facility] 26.[address] [facility] mmol/L [facility] LABORATORY BE Art -4.2 (L) -3.0 - 3.[address] [facility] mmol/L [facility] Hgb Blood Gas 14.5 13.7 - [facility] 16.5 g/dL [facility] O2HB Art 97.2 (H) 94.0 - [facility] 97.0 % [facility] COHB Art 1.2 % [facility] Comment: Nonsmokers: 0.5-1.5% COHB Smokers: Variable, but usually less than 10% Toxic: 20-30% COHB Lethal: Greater than 60% COHB METHB Art 0.3 <=1.5 % [facility] Na Whole Blood 140 135 - 145 mmol/L [facility] K Whole Blood 3.8 3.5 - 5.0 mmol/L [facility] Comment: Please note: Patients with WBC >100,000 may have falsely elevated Potassium levels. Contact the Clinical Chemistry L aboratory if there are any questions. ICa Whole Blood 1.12 (L) 1.15 - 1.33 mmol/L [facility] Comment: Note: ??Total bilirubin higher than 20 m g/dL may lead to falsely low ionized calcium. CL Whole Blood 109 (H) 98 - 107 mmol/L [facility] Gluc Whole Bld 152 [...] Torre MD CHEMISTRY ORDERABLES Performing Organization Address City/[facility]/[place] [address] (ABNORMAL) Prothrombin Time (05/15/2022 12:30 PM EDT) P athologist Signature PT 12.9 (H) 9.4 - 12.5 [facility] LABORATORY INR 1.1 [facility] Comment: An INR [...] Morales DO HEMATOLOGY ORDERABLES Performing Organization Address City/[facility]/[place] [address] (ABNORMAL) APTT (05/15/2022 12:30 PM EDT) P athologist Signature PTT 76 (H) 25 - 37 sec [facility] Comment: The PTT is NOT [...] Comment Spec In Lab Jhonny Daquan Andrew HEMATOLOGY ORDERABLES Performing Organization Address City/[facility]/ZIP Code Phon e Number [address] Gold Tube HOLD (05/15/2022 12:20 PM EDT) P athologist Signature Gold Hold Sample in [facility]. [facility] Specimen Anatomical Collection Method Collection Time Receive d Time (Source) Location / / Volume Laterality Blood No Charge / 05/15/2022 12:20 05/15/2022 Unknown PM EDT 12:20 PM EDT Lc TRIPP CHEMISTRY ORDERABLES Performing Organization Address City/[facility]/ZIP Code Phon e Number [address] Type and Screen Validity (05/15/2022 12:00 PM EDT) [facility] Method Time Signature T&S only valid [facility] H[facility] at [facility] Comment: This Type and Screen result is only valid at the [facility] Hospital Specimen Anatomical Collection Method Collection Time Receive d Time (Source) Location / / Volume Laterality Blood 05/15/2022 12:00 05/15/2022 PM EDT 12:17 PM EDT Resulting Agency Comment Spec In Lab Lc Dominick Kimberly TRIPP BLOOD BANK ORDERABLES Performing Organization Address City/[facility]/ZIP Code Phon e Number [address] ABORH Recheck Status (05/15/2022 12:00 PM EDT) [facility] gist Method Time Signature ABORH Recheck Order Placed [facility] LABORATORY ABORH Type Complete [facility] LABORATORY Specimen Anatomical Collection Method Collection Time Receive d Time (Source) Location / / Volume Laterality Blood 05/15/2022 12:00 05/15/2022 PM EDT 12:17 PM EDT Resulting Agency Comment Spec In Lab Lc Harris PA BLOOD BANK ORDERABLES Performing Organization Address City/[facility]/ZIP [place] [address] CK (05/15/2022 12:00 PM EDT) P athologist Signature CK, Total 87 0 - [address] [facility] unit/L [facility] Specimen Anatomical Collection Method Collection Time Receive d Time (Source) Location / / Volume Laterality Blood Venous Draw / 05/15/2022 12:00 05/15/2022 Unknown PM EDT 12:19 PM EDT Resulting Agency Comment Spec In Lab Fito Summers MD CHEMISTRY ORDERABLES Performing Organization Address City/State/Z[place] [address] Antibody screen (05/15/2022 12:00 PM EDT) [facility] Method Time Signature Ab Screen Negative [facility] LABORATORY Expires at 05/18/[address] [facility] [id number] on: [facility] Specimen Anatomical Collection Method Collection Time Receive d Time (Source) Location / / Volume Laterality Blood 05/15/2022 12:00 05/15/2022 PM EDT 12:17 PM EDT Resulting Agency Comment Spec In Lab Lc TRIPP BLOOD BANK ORDERABLES Performing Organization Address City/[facility]/[place] [address] ABO/Rh Typing (05/15/2022 12:00 PM EDT) P athologist Signature ABORh Type O Pos [facility]ORY Specimen Anatomical Collection Method Collection Time Receive d Time (Source) Location / / Volume Laterality Blood 05/15/2022 12:00 05/15/2022 PM EDT 12:17 PM EDT Resulting Agency Comment Spec In Lab Lc TRIPP BLOOD BANK ORDERABLES Performing Organization Address City/[facility]/ZIP [place] [address] (ABNORMAL) Differential, Automated (05/15/2022 12:00 PM EDT) [facility] Method Time Signature Neutrophils % 79.4 % [facility] Neutr Abs (ANC) 7.49 (H) 1.70 - [facility] 6.[address] [facility] x10(3)/[facility] LABORATORY Lymphocytes % 11.3 % [facility] Lymphocytes Abs 1.1 0.9 - 3.[address] [facility] x10(3)/[facility] LABORATORY Monocytes % 7.8 % [facility] Monocyte Abs 0.7 0.3 - 0.[address] [facility] x10(3)/[facility] LABORATORY Eosinophils % 0.6 % [facility] Eosinophils Abs 0.1 0.0 - 0.[address] [facility] x10(3)/[facility] LABORATORY Basophils % 0.6 % [facility] Basophils Abs 0.1 0.0 - 0.[address] [facility] x10(3)/[facility] LABORATORY Immature Gran % 0.30 % [facility] Comment: Immature granulocytes(IG's)percentage an d absolute count will include metamyelocytes, myelocytes, and promyelo cytes. Blood smears from CBCs yielding IG's will be scanned manually for concor dance. If this scan disagrees with the automated IG or if promyelocytes are not ed, a manual differential will be performed. Rain Gran Abs 0.03 0.00 - 0.04 x10(3)/[facility] Y [facility] LABORATORY Specimen Anatomical Collection Method Collection Time Receive d Time (Source) Location / / Volume Laterality Blood 05/15/2022 12:00 05/15/2022 PM EDT 12:19 PM EDT Resulting Agency Comment Spec In Lab Lc TRIPP HEMATOLOGY ORDERABLES Performing Organization Address City/State/ZIP [place] [address] (ABNORMAL) Hemogram (05/15/2022 12:00 PM EDT) Analysis Performed At Patho logist Time Signature WBC 9.4 4.0 - 9.[address] [facility] x10(3)/[facility] LABORATORY RBC 4.48 (L) 4.58 - [facility] 5.[address] [facility] x10(6)/[facility] LABORATORY Hemoglobin 14.5 13.7 - [facility] 16.5 g/dL [facility] Hematocrit 42.4 40.5 - [facility]5 % [facility] MCV 94.6 (H) 82.9 - [facility] 93.1 [facility] LABORATORY MCH 32.4 (H) 27.5 - [facility] 32[facility] [facility] MCHC 34.2 32.0 - [facility] 35.7 g/dL [facility] Platelets 209 145 - [address] [facility] x10(3)/[facility] LABORATORY RDWSD 45.9 (H) 36.0 - [facility] 45.0 [facility] LABORATORY RDWCV 13.1 11.4 - [facility] 13.8 % [facility] LABORATORY MPV 10.5 7.6 - 12.9 [facility] LABORATORY nRBC % Auto 0.0 % [facility] LABORATORY nRBC Abs Auto 0.000 0.000 - [facility] 0.[address] [facility] x10(3)/[facility] LABORATORY Specimen Anatomical Collection Method Collection Time Receive d Time (Source) Location / / Volume Laterality Blood 05/15/2022 12:00 05/15/2022 PM EDT 12:19 PM EDT Resulting Agency Comment Spec In Lab Lc TRIPP HEMATOLOGY ORDERABLES Performing Organization Address City/State/ZIP [place] [address] (ABNORMAL) Basic Metabolic Panel (non-fasting) (05/15/2022 12:00 PM EDT) P athologist Signature Glucose Lvl 203 (H) 65 - [address] [facility] mg/dL [facility] Comment: Diabetes: >=200 mg/dL plus symp toms BUN 16 10 - 20 mg/dL [facility] LABORATORY Creatinine 0.84 0.80 - 1.50 mg/dL [facility] LABOR[facility]ORY Sodium 141 135 - 145 mmol/L [facility] Potassium 4.7 3.5 - 5.0 mmol/L [facility] [...] mmol/L [facility] Anion Gap 11 5 - 15 mmol/L [facility] Calcium 8.5 8.5 - 10.5 mg/dL [facility] Estimated GFR 89 >=60 mL/min/1.73 m?? [facility] LABORATORY [...] Address City/State/ZIP [place] [address] documented in this encounter [...] 81 mg 0816 (Gi naveen - Provider: tEta Don, RN) 81 mg, Oral, DAILY, First [...] 0852 (Given - Provider: Barbie Joyce , RN)175 [...] 0853 (Given - Provider: Barbie Joyce , DION)175 (MAR Hold - Provider: Admin Adt - [...] Reason: Transfer to a Procedural area)1955 ([facility] Unhold - Provider: Admin Adt) [...] - Provider: Barbie joseph RN - Reason: NPO)175 (JAN Hold - Provider: Admin Adt - Reason: Transfer to a Procedural area)1955 ([facility] Unhold - Provider: Admin Adt)2131 [...] Reason: Transfer to a Procedural area)1955 ([facility] Unhold - Provider: Admin Adt) [...] Reason: Transfer to a Procedural area)1955 ([facility] Unhold - Provider: Admin Adt) 0816 (Given - Provider: Etta contreras RN) 100 mg, Oral, DAILY, First dose on Brandi at 0900, Until Discontinued, Routine valsartan (Diovan) tablet 40 mg 0838 (Given - Provider : Caroline Zamora, DION)2008 (Given - Provider: Nuris Lester RN) 0853 (Given - Provider: Barbie Joyce, DION)175 (MAR Hold - Provider: Admin Adt - [...] Reason: Transfer to a Procedural area)1955 ([facility] Unhold - Provider: Admin Adt) [...] (15 units/kg/hr). Maximum initial infusion rate i 1999 (No t Given - Provider: Tere Blankenship [...] 1900 (Continued Bag - Provider: Cassy Schultz, RN)2200 (Stopped - Provider: Tere Blankenship, DION) 150 mL/hr, Intravenous, CONTINUOUS, Star ting on [...] bisacodyL (Dulcolax) suppository 10 mg 1 751 ([facility] Hold - Provider: Admin Adt - Reason: Transfer to a Procedural area)1955 ([facility] Unhold - Provider: Admin Adt) [...] (porcine) (1,000 units/mL) injection 0-8,000 Units 175 ([facility] Hold - Provider: Admin Adt - Reason: Transfer to a Procedural area)1953 ([facility] Unhold - Provider: Admin Adt) [...] mL 1750 (JAN Hold - Provider: A dmin Adt - Reason: Transfer to a Procedural area)1955 ([facility] Unhold - Provider: Admin Adt) [...] - Pr ovider: Emily Sauceda RN) 1750 ([facility] Hold - Provider: Admin Adt - R lexie: Transfer to a Procedural area)1955 ([facility] Unhold - Provider: Admin Adt) [...] (Roxicodone) tablet 10-15 mg(Linked Group 2) 1750 ([facility] Hold - Provider: Admin Adt - Reason: Transfer to a Procedural area)1955 ([facility] Unhold - Provider: Admin Adt) [...] Reason: Transfer to a Procedural area)1955 ([facility] Unhold - Provider: Admin Adt) [...]
Routine documented in this encounter Care Teams Geomagnetician Relationship Specialty Start Date End Date Bobby Das MD PCP - General 10/02/[address] [place] [address] [place] [address] documented as of this encounter
--- OUTSIDE RECORDS SUMMARY | 2022-07-17 10:38 | XMS_ITS | Encounter Summary ---
:1940 [place] [address] Care Team Providers Name Role Phone Bobby Das MD Primary Care Provider Encounter Details Date Type Department Care Team Description 02/27/2021 Notes Only Radiology Matt Chisholm [place] [address] DIAGNOSTIC RADIOLOGY [phone] [place] [id number] (Wo rk) Social History Tobacco Use Types [...] [facility] DR GASTROENTEROLOGY DEPT [place], [place] [address] (Wo rk) 09/05/2022 Appointment Cardiology Trinity Reid MD [facility] CARDIOLOGY [place], [place] 0[address] (Wo rk) 09/05/2022 Office Visit Cardiology Trinity Reid MD [facility] CARDIOLOGY [place], [place] [address] (Wo rk) documented as of this encounter Visit Diagnoses Not on filedocumented in this encounter Care Teams Rolloff Driver Relationship Specialty Start Date End Date Bobby Das MD PCP - General 10/02/[address] [place] [address] [place] [address] documented as of this encounter
--- OUTSIDE RECORDS SUMMARY | 2022-07-17 10:38 | XMS_ITS | Encounter Summary ---
:1940 Author Organization [facility] [place] [address] Care Team Providers Name Role Phone Bobby Das MD Primary Care Provider Reason for Referral Consultation (Routine) - Closed Specialty Diagnoses / Procedures Referred By Contact Refer red To Contact Neurology Diagnoses Low back pain, non-specific Status post vertebroplasty Transient left leg weakness EMG Arpita Whitney APRN [facility] [address] [place], [place] [address] [place] [phone] Fax: Referral ID Status Reason Start Date Expiration Date Visits V isits Requested Authorized [id number] Closed Consult, 04/17/2021 04/17/2022 1 1 Test & Treat hysical Therapy (Routine) - Specialty Diagnoses / Procedures Referred By Contact Refer red To Contact Diagnoses Low back pain, non-specific Status post vertebroplasty [place] [address] Referral ID Status Reason Start Date Expiration Date Visits V isits Requested Authorized [id number] Evaluate and 04/17/2021 10/14/2021 12 12 Treat Reason for Visit Reason Comments Back Pain new patient visit Consultation (Routine) - Closed Specialty Diagnoses / Procedures Referred By Contact Refer red To Contact [facility] Diagnoses Low back pain Pain - Low back pain/ MRI 02/20/21 & XR 01/31/21 @ REPLACED BY [facility] Bobby Das MD [facility] Pain And [address] [place], [place] [address] [address] [place] [address] Phone: Fax: Referral ID Status Reason Start Date Expiration Date Visits Requ ested Visits Authorized [id number] Closed 03/07/2021 03/07/2022 1 1 Encounter Details Date Type Department Care Team Description 04/17/2021 Office Visit [facility] Arpita Whitney Lo w back pain, non-specific; at [facility] 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 [facility] Date [...] standing limited due to back pain [facility] Prescription Monitoring Program was checked. The number of prescriptions reported was 0. Current Medications: Outpatient Medications Marked as Taking for the 04/17/21 encounter (Office Visit) with Arpita Whitney APRN Medication Sig Dispense Refill ??? fluticasone propionate (FLONASE) 50 mcg/actuation [place], Suspension as needed. ??? fluorouraciL (EFUDEX) 5 [...] IR Biopsy Spine 07/20/2019 Bobby Marshall MD [facility] INTERVENTIONL RAD ??? IR VERTEBROPLASTY LUMBAR MULTIPLE LEVELS 07/20/2019 IR Vertebroplasty Lumbar Multiple Levels 07/20/2019 Bobby Marshall MD [facility] INTERVENTIONL RAD ??? IR VERTEBROPLASTY THORACIC SINGLE LEVEL 10/25/2020 IR Vertebroplasty Thoracic Single Level 10/25/2020 Matt Chisholm MD [facility] INTERVENTIONL RAD Review of Systems: [...] y.o. year-old male who presents to the [facility], previously [...] Mr. Koko Zamora's care. Arpita Whitney, MSN, DIGITAL MARKETING SPECIALIST- C, SOLAR INSTALLATION SUPERVISOR Nurse Practitioner [facility] [place] [phone] / [facility] documented in this encounter Plan of Treatment Upcoming Encounters Date Type Specialty Care Team Description 08/08/2022 Office Visit Gastroenterology Negra Collins MD [facility] GASTROENTEROLOGY DEPT [place], [place] [address] (Wo rk) 09/05/2022 Appointment Cardiology Trinity Reid MD [facility] CARDIOLOGY [place], [place] [address] (Wo rk) 09/05/2022 Office Visit Cardiology Trinity Reid MD [facility] CARDIOLOGY [place], [place] [address] (Wo rk) Scheduled Referrals Name [...] limbs documented in this encounter Care Teams Utilization Manager Relationship Specialty Start Date End Date Bobby Das MD PCP - General 10/02/[address] [place] [address] [place] [phone] documented as of this encounter
--- OUTSIDE RECORDS SUMMARY | 2022-07-17 10:38 | XMS_ITS | Encounter Summary ---
:1940 Author Organization [facility] Address [facility] [place] [address] Care Team Providers Name Role Phone Bobby Das MD Primary Care Provider Encounter Details Date Type Department Care Team Description 10/25/2020 Laboratory Appointment Lab at [facility] Compression fracture [facility] of T[address] [place] [address] Social History Tobacco Use Types Packs/Day Years [...] MD [facility] DR GASTROENTEROLOGY DEPT [place], [place] [address] (Wo rk) 09/05/2022 Appointment Cardiology Trinity Reid MD [facility] CARDIOLOGY [place], [place] [address] (Wo rk) 09/05/2022 Office Visit Cardiology Trinity Reid MD [facility] CARDIOLOGY [place], [place] [address] (Wo rk) documented as of this encounter Procedures Procedure Name Priority Date/Time Associated Diagnosis Comme Located within [facility] VENIPUNCTURE Routine 10/25/2020 6:35 AM [...] athologist Signature Platelets 192 145 - 357 [facility] x10(3)/[facility] LABORATORY Plat Immature 2.6 0.0 - 7.4 [facility] % % [facility] LABORATORY Comment: Limitation of the Immature Platelet Frac tion (IPF)-May be less reliable when the platelet count is less than 33w796/u L due to statistical imprecision. The IPF [...] in a decreased state of production. References: [employer] The Clinical Value of the Immature Platelet Fraction (IPF) in Cell Recovery Document Number 10-1143 04/2011 [employer] The Role of the Imm ature [...] Organization Address City/State/[place] [address] Prothrombin Time (10/25/2020 6:35 AM EST) athologist Signature PT 10.8 9.4 - 12.5 [facility] LABORATORY INR 1.0 [facility] LABORATORY Comment: An INR [...] City/State/ZIP Code Phon e Number [place] [phone] HOSPITAL LAB[address]ORY [address] documented in this encounter Visit Diagnoses Diagnosis Compression fracture of T9 vertebra, ini tial encounter documented in this encounter Care Teams Ornament Stitcher Relationship Specialty Start Date End Date Bobby Das MD PCP - General 10/02/[address] [place] [address] [place] [phone] documented as of this encounter
--- OUTSIDE RECORDS SUMMARY | 2022-07-17 10:38 | XMS_ITS | Encounter Summary ---
:1940 Author Organization [facility] [place] [address] Care Team Providers Name Role Phone Bobby Das MD Primary Care Provider Reason for Referral Diagnostic Test (Routine) - Closed Specialty Diagnoses / Procedures Referred By Contact Refer red To Contact Radiology Diagnoses Compression fracture of T9 vertebra, initial encounter Alphonso Esquivel DO [facility] Interventionl Rad Procedures IR Vertebroplasty Thoracic [facility] [place] [address] [place] [address] Referral ID Status Reason Start Date Expiration Date Visits V isits Requested Authorized [id number] Closed Specialty 10/13/2020 04/13/2022 1 1 Service Requested Reason for Visit Diagnostic Test (Routine) - Closed Specialty Diagnoses / Procedures Referred By Contact Refer red To Contact Radiology Diagnoses Compression fracture of T9 vertebra, initial encounter Alphonso Esquivel DO [facility] Interventionl Rad Procedures IR Vertebroplasty Thoracic [facility] [place] [address] [place] [address] Referral ID Status Reason Start Date Expiration Date Visits V isits Requested Authorized [id number] Closed Specialty 10/13/2020 04/13/2022 1 1 Service Requested Encounter Details Date Type Department Care Team Description 10/25/2020 Hospital Encounter Radiology at [facility] Esquivel, Alphonso R, Compression fracture [facility] DO of T9 vertebra, Drive [facility] initial encounter [place], [place] CENTER [address] DIAGNOSTIC [phone] [place] [address] Social History Tobacco Use Types Packs/Day Years [...] Vargas RN - 10/25/2020 9:13 AM EST [facility] Discharge Instructions for Vertebroplasty Your vertebroplasty [...] is during regular office hours, please call [phone]. If it is after regular office hours, oron weekends or holidays, please call [phone] and ask to speak to the Developer [employer] on callfor Interventional Radiology. XXX You have [...] of : 1940 AGE: 80 y.o. Address: [address] [place] [address] (home) Mobile: No relevant phone numbers on file. Referring Provider: Alphonso Esquivel REASON FOR VISIT: Order Questions Answers Where will study be performed? [facility] Radiology [120] Is the patient on [...] Collins MD [facility] GASTROENTEROLOGY DEPT [place], [place] [address] (Wo rk) 09/05/2022 Appointment Cardiology Trinity Reid MD [facility] CARDIOLOGY [place], [place] [address] (Wo rk) 09/05/2022 Office Visit Cardiology Trinity Reid MD [facility] CARDIOLOGY [place], [place] [address] (Wo rk) documented as of [...] made and a 13g a introducer needle (Veeip) was advanced through the right pedicle and t o the ??T9 vertebral body during an intermittent fluoroscopic guidance. The Veeip biopsy cannula was advanced through the introducer [...] was made and a 13ga introducer needle (Accord) was advanced through the left pedicle and [...] made and a 13g a introducer needle (Veeip) was advanced through the right pedicle and t o the T9 vertebral body during an intermittent fluoroscopic guidance. The [place] biopsy cannula was advanced through the introducer [...] was made and a 13ga introducer needle (Accord) was advanced through the left pedicle and [...] Ref Test Analysis Performed At [facility] Method Time Signature Surgical [id number] ? Location: [address] [place] [address] Pathology [place] Report The signing pathologist has (i) examined [...] Bone & Soft Tissue Pathologist Performed at: ??-[facility] Dept. of Pathology, [place], [place] DISCUSSION I see no neoplastic process [...] DO PATHOLOGY/CYTOLOGY ORDERABLE S Performing Organization Address City/[facility]/[place] [address] Specimen to Pathology (10/25/2020 8:26 AM EST) Specimen Anatomical Collection Method Collection Time Receive d Time (Source) Location / / Volume Laterality AP Specimen 10/25/2020 8:26 AM 0 8:26 EST AM EST Narrative [facility] - 10/25/2020 8:26 AM EST Specimen requisition ordered. ??Separate Pathology report to follow Alphonso Esquivel DO PATHOLOGY/CYTOLOGY ORDERABLE S Performing Organization Address City/[facility] Code Phon e Number [address] documented in this encounter [...] Procedure) documented in this encounter Care Teams Show Dog Trainer Relationship Specialty Start Date End Date Bobby Das MD PCP - General 10/02/[address] [place] [address] [place] [phone] documented as of this encounter
--- OUTSIDE RECORDS SUMMARY | 2022-07-17 10:38 | XMS_ITS | Encounter Summary ---
:1940 Author Organization [facility] [place] [address] Care Team Providers Name Role Phone Bobby Das MD Primary Care Provider Encounter Details Date Type Department Care Team Description 09/22/2020 Telephone Pain and Spine [place] [facility] [facility] [place] [address] Social History Tobacco Use Types Packs/Day [...] MD [facility] GASTROENTEROLOGY DEPT [place], [place] [address] (Wo rk) 09/05/2022 Appointment Cardiology Trinity Reid MD [facility] ER CARDIOLOGY [place], [place] [address] (Wo rk) 09/05/2022 Office Visit Cardiology Trinity Reid MD [facility] ER CARDIOLOGY [place], [place] [address] (Wo rk) documented as of this encounter Visit Diagnoses Not on filedocumented in this encounter Care Teams Electric Shipyard Operator Relationship Specialty Start Date End Date Bobby Das MD PCP - General 10/02/[address] [place] [address] [place] [address] documented as of this encounter
--- OUTSIDE RECORDS SUMMARY | 2022-07-17 10:38 | XMS_ITS | Encounter Summary ---
:1940 [place] [address] Care Team Providers Name Role Phone Bobby Das MD Primary Care Provider Reason for Visit Auth/Cert Specialty Diagnoses / Procedures Referred By Contact Refer red To Contact Diagnoses Limb ischemia LLE thrombus Fito Summers MD [facility] [place] [address] Referral ID Status Reason Start Date Expiration Date Visits Requ ested Visits Authorized [id number] 1 1 Encounter Details Date Type Department Care Team Description 05/15/2022 Anesthesia Event Main Operating Room Cari Briggs MD [facility] [place] [address] [facility] Duong Aguillon CRNA [facility] [place] [address] [place] [address] Anesthesia Record Procedure Summary Procedure Name [...] Amb ros, Andrea L, DION fossa), left; pxry-lwy-xxoclr catheter system; 18 gauge; OSH; site care per policy/procedure, site symptomatic, removed per policy/procedure, catheter/device intact; 05/16/22; 1117 PIV 05/15/22; 1204; median 05/15/22 1204 by 05/16/22 0738 by cubital vein (antecubital Marcia Dimas RN Gon zalez, Adriana, fossa), right; RN bgzs-uyq-tcyqsk catheter system; 18 gauge; OSH; 05/16/22; 0738 [...] Procedure Summary Date: 05/15/22 Room / Location: [facility] OR [address] [place] [address] MAIN OR Anesthesia Start: 1320 Anesthesia Stop: 1633 Procedure: EMBOLECTOMY OR THROMBECTOMY, FEMOROPOPLITEAL, AORTOILIAC ARTERY BY LEG INCISION ([facility] 19.48) (Left ) Diagnosis: (Acute Limb Ischemia) Surgeons: Fito Summers MD Responsible Provider: Cari Ventura MD Anesthesia Type: general ASA Status: 3 - Emergent All Anesthesia Providers: Anesthesiologist: Cari Ventura MD DRIVER/GUIDE: Torres Aguilar CRNA Vitals Value Taken Time BP 108/69 05/15/22 1715 Temp 36.3 ??C (97.3 ??F) 05/15/22 1633 Pulse 110 05/15/22 1719 Resp 16 05/15/22 1719 SpO2 89 % 05/15/22 1719 Pain Level Vitals shown include unvalidated device data. 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 Plan discussed with DRIVER/GUIDE. Anesthesia Screening documented in this encounter Plan of Treatment Upcoming Encounters Date Type Specialty Care Team Description 08/08/2022 Office Visit Gastroenterology Negra Collins MD [facility] GASTROENTEROLOGY DEPT [place], [place] [address] (Wo rk) 09/05/2022 Appointment Cardiology Trinity Reid MD [facility] CARDIOLOGY [place], [place] [address] (Wo rk) 09/05/2022 Office Visit Cardiology Trinity Reid MD [facility] CARDIOLOGY [place], [place] [address] (Wo rk) documented as of [...] Das MD PCP - General 10/02/[address] [place] [address] [place] [phone] documented as of this encounter
--- OUTSIDE RECORDS SUMMARY | 2022-07-17 10:38 | XMS_ITS | Encounter Summary ---
:1940 Author Organization [facility] [place] [address] Care Team Providers Name Role Phone Bobby Das MD Primary Care Provider Encounter Details Date Type Department Care Team Description 09/06/2020 Ancillary Procedure Radiology at [facility] Amy Grimaldo [address] [place] [address] 10 [address] [phone] NEUROSURGERY-N [place], [place] [address] Social History Tobacco Use Types [...] Gastroenterology Negra Collins MD [facility] GASTROENTEROLOGY DEPT [place], [place] 0375 (Wo rk) 09/05/2022 Appointment Cardiology Trinity Reid MD [facility] CARDIOLOGY [place], [place] 0375 (Wo rk) 09/05/2022 Office Visit Cardiology Trinity Reid MD [facility] CARDIOLOGY [place], [place] 0[address] (Wo rk) documented as of [...] Organization Address City/State/ZIP Code Phon e Number [place], [place] documented in this encounter Visit Diagnoses Not on filedocumented in this encounter Care Teams It Web Development Consultant Relationship Specialty Start Date End Date Bobby Das MD PCP - General 10/02/[address] [place] [address] [place] [phone] documented as of this encounter
--- OUTSIDE RECORDS SUMMARY | 2022-07-17 10:38 | XMS_ITS | Encounter Summary ---
:1940 Author Organization [facility] [place] [address] Care Team Providers Name Role Phone Bobby Das MD Primary Care Provider Encounter Details Date Type Department Care Team Description 08/28/2020 Ancillary Procedure Radiology at [facility] Amy Grimaldo [address] [place] [address] 10 LITTLE JAY [phone] NEUROSURGERY-N [place], [place] [address] Social History Tobacco Use Types [...] MD [facility] GASTROENTEROLOGY DEPT [place], [place] 0375 (Wo rk) 09/05/2022 Appointment Cardiology Trinity Reid MD [facility] CARDIOLOGY [place], [place] 0375 (Wo rk) 09/05/2022 Office Visit Cardiology Trinity Reid MD [facility] CARDIOLOGY [place], [place] 0375 (Wo rk) documented as of [...] Organization Address City/State/ZIP Code Phon e Number [place], [place] documented in this encounter Visit Diagnoses Not on filedocumented in this encounter Care Teams Manager Of Financial Planning Relationship Specialty Start Date End Date Bobby Das MD PCP - General 10/02/[address] [place] [address] [place] [phone] documented as of this encounter
--- OUTSIDE RECORDS SUMMARY | 2022-07-17 10:38 | XMS_ITS | Encounter Summary ---
:1940 Author Organization [facility] [place] [address] Care Team Providers Name Role Phone Bobby Das MD Primary Care Provider Reason for Referral Diagnostic Test (Routine) - Closed Specialty Diagnoses / Procedures Referred By Contact Refer red To Contact Radiology Diagnoses Compression fracture of T9 vertebra, initial encounter Alphonso Esquivel, DO [facility] Interventionl Rad Procedures IR Vertebroplasty Thoracic Single Level [facility] [place] [address] [place] [address] Referral ID Status Reason Start Date Expiration Date Visits V isits Requested Authorized [id number] Closed Specialty 10/13/2020 04/13/2022 1 1 Service Requested Encounter Details Date Type Department Care Team Description 10/13/2020 Orders Only Radiology at [facility] Alphonso Esquivel, Compression fracture [facility] DO of T9 vertebra, Drive [facility] [place] [address] DIAGNOSTIC RADIOLOGY [place], [place] [address] Social History Tobacco Use Types [...] [facility] DR GASTROENTEROLOGY DEPT [place], [place] [address]375 (Wo rk) 09/05/2022 Appointment Cardiology Trinity Reid MD [facility] CARDIOLOGY [place], [place] [address] (Wo rk) 09/05/2022 Office Visit Cardiology Trinity Reid MD [facility] CARDIOLOGY [place], [place] 0375 (Wo rk) documented as of [...] made and a 13g a introducer needle (Apptopia) was advanced through the right pedicle and t o the ??T9 vertebral body during an intermittent fluoroscopic guidance. The Apptopia biopsy cannula was advanced through the introducer [...] was made and a 13ga introducer needle (140Fire) was advanced through the left pedicle and [...] RADIATION EXPOSURE: A-plane 419 mGy, B-p solan 69 mGy. TECHNIQUE: Following discussion of the [...] made and a 13g a introducer needle (Apptopia) was advanced through the right pedicle and t o the T9 vertebral body during an intermittent fluoroscopic guidance. The Apptopia biopsy cannula was advanced through the introducer [...] was made and a 13ga introducer needle (140Fire) was advanced through the left pedicle and [...] athologist Signature PT 10.8 9.4 - 12.5 [facility] LABORATORY INR 1.0 [facility] LABORATORY Comment: An [...] Organization Address City/State/[place] [address] Platelet count (10/25/2020 6:35 AM EST) athologist Signature Platelets 192 145 - 357 [facility] x10(3)/[facility] LABORATORY Plat Immature 2.6 0.0 - 7.4 [facility] % % [facility] LABORATORY Comment: Limitation of the Immature Platelet Frac tion (IPF)-May be less reliable when the platelet count is less than 05b844/u L due to statistical imprecision. The IPF [...] in a decreased state of production. References: [employer] The Clinical Value of the Immature Platelet Fraction (IPF) in Cell Recovery Document Number 10-1143 04/2011 [employer] The Role of the Imm ature [...] Organization Address City/State/[place] [address] documented in this encounter Visit Diagnoses Diagnosis Compression fracture of T9 vertebra, ini tial encounter Compression fracture of T9 vertebra, ini tial encounter documented in this encounter Care Teams Wire Coiner Relationship Specialty Start Date End Date Bobby Das MD PCP - General 10/02/[address] [place] [address] [place] [phone] documented as of this encounter
--- OUTSIDE RECORDS SUMMARY | 2022-07-17 10:38 | XMS_ITS | Encounter Summary ---
:[address] [facility] [place] [address] Care Team Providers Name Role Phone Bobby Das MD Primary Care Provider Encounter Details Date Type Department Care Team Description 05/15/2022 Ancillary Procedure Radiology Library at [facility], Lavell Butt, [place] [facility] [place] [address] VASCULAR SURGERY [phone] [place] [address] (Wo rk) Social History Tobacco Use Types [...] Gastroenterology Negra Collins MD [facility] DR GASTROENTEROLOGY DEPT [place], [place] [address] (Wo rk) 09/05/2022 Appointment Cardiology Trinity Reid MD [facility] CARDIOLOGY [place], [place] [address] (Wo rk) 09/05/2022 Office Visit Cardiology Trinity Reid MD [facility] CARDIOLOGY [place], [place] [address] (Wo rk) documented as of [...] Organization Address City/State/ZIP Code Phon e Number [place], [place] documented in this encounter Visit Diagnoses Not on filedocumented in this encounter Care Teams Economic Research Assistant Relationship Specialty Start Date End Date Bobby Das MD PCP - General 10/02/[address] [place] [address] [place] [phone] documented as of this encounter
--- OUTSIDE RECORDS SUMMARY | 2022-07-17 10:38 | XMS_ITS | Encounter Summary ---
:1940 Author Organization [facility] Address [facility] [place] [address] Care Team Providers Name Role Phone Bobby Das MD Primary Care Provider Reason for Visit - Closed Specialty Diagnoses / Procedures Referred By Contact Refer red To Contact Procedures Bobby Das MD Film Library- Storage Only DX [address] [place] [phone] Referral ID Status Reason Start Date Expiration Date Visits Requ ested Visits Authorized [id number] Closed 04/13/2021 04/13/2022 1 1 Encounter Details Date Type Department Care Team Description 01/31/2021 Ancillary Procedure Radiology Library at Bobby Almaguer MD [address] [address] [phone] (Rebekah rojas) Social History Tobacco Use Types [...] MD [facility] DR GASTROENTEROLOGY DEPT [place], [place] 0[address] (Wo rk) 09/05/2022 Appointment Cardiology Trinity Reid MD [facility] CARDIOLOGY [place] [address] (Wo rk) 09/05/2022 Office Visit Cardiology Trinity Reid MD [facility] CARDIOLOGY [place] [address] (Wo rk) documented as of this [...] Organization Address City/State/ZIP Code Phon e Number [place], [place] documented in this encounter Visit Diagnoses Not on filedocumented in this encounter Care Teams Portfolio Assistant Relationship Specialty Start Date End Date Bobby Das MD PCP - General 10/02/[address] [place] [address] [place] [phone] documented as of this encounter
--- OUTSIDE RECORDS SUMMARY | 2022-07-17 10:38 | XMS_ITS | Encounter Summary ---
:1940 [place] [address] Care Team Providers Name Role Phone Bobby Das MD Primary Care Provider Encounter Details Date Type Department Care Team Description 10/13/2020 Notes Only Radiology at [facility] Alphonso Esquivel [facility] [place] [address] DIAGNOSTIC RADIOLOGY [phone] [place] [phone] (Wo rk) Social History Tobacco Use Types [...] Gastroenterology Negra Collins MD [facility] GASTROENTEROLOGY DEPT [place], [place] 0[address] (Wo rk) 09/05/2022 Appointment Cardiology Trinity Reid MD [facility] CARDIOLOGY [place], [place] [address] (Wo rk) 09/05/2022 Office Visit Cardiology Trinity Reid MD [facility] CARDIOLOGY [place], [place] [address] (Wo rk) documented as of this encounter Visit Diagnoses Not on filedocumented in this encounter Care Teams Prospecting Driller Helper Relationship Specialty Start Date End Date Bobby Das MD PCP - General 10/02/[address] [place] [address] [place] [phone] documented as of this encounter
--- OUTSIDE RECORDS SUMMARY | 2022-07-17 10:38 | XMS_ITS | Encounter Summary ---
:1940 Author Organization [facility] [place] [address] Care Team Providers Name Role Phone Bobby Das MD Primary Care Provider Encounter Details Date Type Department Care Team Description 05/15/2022 Ancillary Procedure Radiology Library at [facility], Lavell Butt, [facility] [place] [address] VASCULAR SURGERY [phone] [place] [phone] (Wo rk) Social History Tobacco Use Types [...] [facility] DR GASTROENTEROLOGY DEPT [place], [place] 0[address] (Wo rk) 09/05/2022 Appointment Cardiology Trinity Reid MD [facility] CARDIOLOGY [place], [place] [address] (Wo rk) 09/05/2022 Office Visit Cardiology Trinity Reid MD [facility] CARDIOLOGY [place], [place] [address] (Wo rk) documented as of [...] Organization Address City/State/ZIP Code Phon e Number [place], [place] documented in this encounter Visit Diagnoses Not on filedocumented in this encounter Care Teams Economic Geographer Relationship Specialty Start Date End Date Bobby Das MD PCP - General 10/02/[address] [place] [address] [place] [phone] documented as of this encounter
--- OUTSIDE RECORDS SUMMARY | 2022-07-17 10:39 | XMS_ITS | Encounter Summary ---
:1940 Author Organization [facility] [place] [address] Care Team Providers Name Role Phone Bobby Das MD Primary Care Provider Encounter Details Date Type Department Care Team Description 06/26/2018 Ancillary Procedure Radiology Library at Bobby Almaguer MD [facility] [address] [place] [phone] (Wo rk) Social History Tobacco Use Types Packs/Day Years Used Date Current Some Day Smoker 1 50 Smokeless Tobacco: Never Used Sex Assigned at Date Recorded Not on file documented as of this encounter Plan of Treatment Upcoming Encounters Date Type Specialty Care Team Description 08/08/2022 Office Visit Gastroenterology Negra Collins MD [facility] DR GASTROENTEROLOGY DEPT [place], [place] [address] (Wo rk) 09/05/2022 Appointment Cardiology Trinity Reid MD [facility] CARDIOLOGY [place], [place] 0375 (Wo rk) 09/05/2022 Office Visit Cardiology Trinity Reid MD [facility] CARDIOLOGY [place], [place] [address] (Wo rk) documented as of [...] Organization Address City/State/ZIP Code Phon e Number [place], [place] documented in this encounter Visit Diagnoses Not on filedocumented in this encounter Care Teams Fueler Relationship Specialty Start Date End Date Bobby Das MD PCP - General 10/02/[address] [place] [address] [place] [phone] documented as of this encounter
--- OUTSIDE RECORDS SUMMARY | 2022-07-17 10:39 | XMS_ITS | Encounter Summary ---
:1940 Author Organization [facility] [address] Care Team Providers Name Role Phone Bobby Das MD Primary Care Provider Reason for Referral Diagnostic Test (Routine) - Specialty Diagnoses / Procedures Referred By Contact Refer red To Contact Radiology Diagnoses Chest pain, unspecified type Chronic abdominal pain Chano Rebolledo MD [facility] Rad Ct Scan Procedures CT Chest w Contrast CT Chest wo Contrast (Generic) [facility] [place] [address] [place] [address] Referral ID Status Reason Start Date Expiration Visits Visits Date Requested Authorized [id number] Specialty 12/13/2016 12/13/2017 1 1 Service Requested Diagnostic Test (Routine) - Closed Specialty Diagnoses / Procedures Referred By Contact Refer red To Contact Radiology Diagnoses Chest pain, unspecified type Chronic abdominal pain Chano Rebolledo MD [facility] Rad Ct Scan Procedures CT Abdomen & Pelvis w Contrast [facility] [place] [address] [place] [address] Referral ID Status Reason Start Date Expiration Date Visits V isits Requested Authorized [id number] Closed Specialty 12/13/2016 12/13/2017 1 1 Service Requested Reason for Visit Diagnostic Test (Routine) - Closed Specialty Diagnoses / Procedures Referred By Contact Refer red To Contact Radiology Diagnoses Chest pain, unspecified type Chronic abdominal pain Chano Rebolledo MD [facility] Rad Ct Scan Procedures CT Abdomen & Pelvis w Contrast [facility] [place] [address] [place] [address] Referral ID Status Reason Start Date Expiration Date Visits V isits Requested Authorized [id number] Closed Specialty 12/13/2016 12/13/2017 1 1 Service Requested Encounter Details Date Type Department Care Team Description 12/17/[address] Scan at [facility] Fanciullo, Chest pain, unspecified type ; [facility] Leonel Sullivan MD Chronic abdominal pain Drive [facility] [address] PAIN CLINIC [phone] [place] [address] Social History Tobacco Use Types [...] Visit Gastroenterology Negra Collins MD [facility] GASTROENTEROLOGY DEPT [place], [place] 0[address] (Wo rk) 09/05/2022 Appointment Cardiology Trinity Reid MD [facility] [address] [place], [place] [address] (Wo rk) 09/05/2022 Office Visit Cardiology Trinity Reid MD [facility] [address] [place], [place] [address] (Wo rk) documented as of [...] 1237 documented in this encounter Care Teams Plate Fitter Relationship Specialty Start Date End Date Bobby Das MD PCP - General 10/02/[address] [place] [address] [place] [phone] documented as of this encounter
--- OUTSIDE RECORDS SUMMARY | 2022-07-17 10:39 | XMS_ITS | Encounter Summary ---
:1940 Author Organization [facility] [place] [address] Care Team Providers Name Role Phone Bobby Das MD Primary Care Provider Reason for Visit Reason Comments Basal Cell Carcinoma Encounter Details Date Type Department Care Team Description 08/08/2015 [facility] (basal cell Road MD carcinoma of skin) [address] [place] [address] [facility] [place], [place] [address] Social History Tobacco Use Types [...] Our facility does not offer a guest [employer] network at this time. We also recommend [...] specified we require that you have a wheat combine driver, as surgery can be stressful and tiring. If you are being transported from a penitentiary or other similar facility, we request that someone stay with you during this appointment. We are located in the [facility] [place], [place]. Please refer to the [facility] website for detailed driving directions ([email or web address]). When you arrive, please park in the upper parking lot. When you enter the building, go to the third floor, the chili powder mixer area is located on the left (follow [...] If this fails, contact our office at [phone] (after 5PM please call [phone] and ask for the Almond Huller fiscal economist). Avoid bending over, heavy lifting (no greater [...] are taking. Our office phone number is [phone]. documented in this encounter Progress Notes Leo Solo MD - 08/08/2015 1:50 PM EDT [facility] Chief Complaint: Basal cell carcinoma History of Present Illness: Referring Physician: Dr. Zheng, [facility] (07/03/15) Tumor type: BCC Location of Skin Cancer: Right buddhist Duration of Presence: 1 year Previous Treatment: [...] acute distress. Skin: Limited examination of right buddhist reveals a 5 mm erythematous papule. Assessment and Plan 1. BCC, right buddhist Reviewed treament options including wide local excision, [...] 08/08/2022 Office Visit Gastroenterology Negra Collins MD [facility] DR GASTROENTEROLOGY DEPT [place], [place] 0375 (Wo rk) 09/05/2022 Appointment Cardiology Trinity Reid MD [facility] CARDIOLOGY [place], [place] 0375 (Wo rk) 09/05/2022 Office Visit Cardiology Trinity Reid MD [facility] CARDIOLOGY [place], [place] 0375 (Wo rk) documented as of this encounter Visit Diagnoses Diagnosis BCC (basal cell carcinoma of skin) Basal cell carcinoma of skin, site unspe cified documented in this encounter Care Teams Matzo Forming Machine Operator Relationship Specialty Start Date End Date Bobby Das MD PCP - General 10/02/[address] [place] [address] [place] [phone] documented as of this encounter
--- OUTSIDE RECORDS SUMMARY | 2022-07-17 10:39 | XMS_ITS | Encounter Summary ---
:1940 Author Organization [facility] Address [facility] [place] [address] Care Team Providers Name Role Phone Bobby Das MD Primary Care Provider Reason for Visit Reason Comments Shortness of Breath Encounter Details Date Type Department Care Team Description 12/24/2011 Office Visit [facility] Torrey Giang SOB (shortness of [address] Bradley Mendoaz MD breath) (Primary Dx) [facility] [phone] CARDIOLOGY DEPT. [place], [place] [address] Social History Tobacco Use Types Packs/Day Years [...] [facility] [place], [place] [address] (Wo rk) 09/05/2022 Appointment Cardiology Trinity Reid MD [facility] CARDIOLOGY [place], [place] [address] (Wo rk) 09/05/2022 Office Visit Cardiology Trinity Reid MD [facility] CARDIOLOGY [place], [place] [address] (Wo rk) documented as of this encounter Visit Diagnoses Diagnosis SOB (shortness of breath) - Primary Shortness of breath documented in this encounter Care Teams Fine Patcher Relationship Specialty Start Date End Date Bobby Das MD PCP - General 10/02/[address] [place] [address] [place] [phone] documented as of this encounter
--- OUTSIDE RECORDS SUMMARY | 2022-07-17 10:39 | XMS_ITS | Encounter Summary ---
:1940 Author Organization [facility] [place] [address] Care Team Providers Name Role Phone Bobby Das MD Primary Care Provider Reason for Visit Reason Comments Shortness of Breath Encounter Details Date Type Department Care Team Description 09/17/2011 Office Visit [facility] Hosp Torrey Giang SOB (shortness of [address] Bradley Mendoza MD breath) (Primary Dx) [facility] [phone] CARDIOLOGY DEPT. [place] [address] Social History Tobacco Use Types Packs/Day Years [...] MD [facility] GASTROENTEROLOGY DEPT [place], [place] 0[address] (Wo rk) 09/05/2022 Appointment Cardiology Trinity Reid MD [facility] CARDIOLOGY [place], [place] [address] (Wo rk) 09/05/2022 Office Visit Cardiology Trinity Reid MD [facility] CARDIOLOGY [place], [place] [address] (Wo rk) documented as [...] breath documented in this encounter Care Teams Family Development Specialist Relationship Specialty Start Date End Date Bobby Das MD PCP - General 10/02/[address] [place] [address] [place] [phone] documented as of this encounter
--- OUTSIDE RECORDS SUMMARY | 2022-07-17 10:39 | XMS_ITS | Encounter Summary ---
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 Chano Rebolledo MD [facility] Thoracic Surg [address] [place] [address] [place] [address] [place] [address] Phone: Fax: Referral ID Status Reason Start Date Expiration Date Visits V isits Requested Authorized [id number] Denied Consult, 12/18/2016 12/18/2017 1 0 Test & Treat Encounter Details Date Type Department Care Team Description 12/18/2016 Telephone Pain Management at Chano Freitas MD [facility] [place] [address] PAIN CLINIC [phone] [place], [place] [address] (Wo rk) Social History Tobacco [...] I will make a heme/oncology consultation with [facility] for the patient in the meantime. documented in this encounter Plan of Treatment Upcoming Encounters Date Type Specialty Care Team Description 08/08/2022 Office Visit Gastroenterology Negra Collins MD [facility] GASTROENTEROLOGY DEPT [place], [place] [address] (Wo rk) 09/05/2022 Appointment Cardiology Trinity Reid MD [facility] CARDIOLOGY [place], [place] [address] (Wo rk) 09/05/2022 Office Visit Cardiology Trinity Reid MD [facility] CARDIOLOGY [place], [place] [address] (Wo rk) Scheduled Referrals Name Type Priority Associated Diagnoses Order S chedule Referral to Outpatient Referral Routine Neoplasm of Ordered: Hematology and uncertain behavior 017 Oncology of respiratory organ documented as of this encounter Visit Diagnoses Diagnosis 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
--- OUTSIDE RECORDS SUMMARY | 2022-07-17 10:39 | XMS_ITS | Encounter Summary ---
:1940 Author Organization [place] [address] Care Team Providers Name Role Phone Bobby Das MD Primary Care Provider Encounter Details Date Type Department Care Team Description 05/13/2018 Ancillary Procedure Radiology Library at Bobby Almaguer MD [facility] [address] [place] [phone] (Wo rk) Social History Tobacco Use Types Packs/Day Years Used Date Current Some Day Smoker 1 50 Smokeless Tobacco: Never Used Sex Assigned at Date Recorded Not on file documented as of this encounter Plan of Treatment Upcoming Encounters Date Type Specialty Care Team Description 08/08/2022 Office Visit Gastroenterology Negra Collins MD [facility] DR GASTROENTEROLOGY DEPT [place], [place] [address] (Wo rk) 09/05/2022 Appointment Cardiology Trinity Reid MD [facility] CARDIOLOGY [place], [place] [address] (Wo rk) 09/05/2022 Office Visit Cardiology Trinity Reid MD [facility] CARDIOLOGY [place], [place] [address] (Wo rk) [...] Organization Address City/State/ZIP Code Phon e Number [place], [place] documented in this encounter Visit Diagnoses Not on filedocumented in this encounter Care Teams Spout Positioner Relationship Specialty Start Date End Date Bobby Das MD PCP - General 10/02/[address] [place] [address] [place] [phone] documented as of this encounter
--- OUTSIDE RECORDS SUMMARY | 2022-07-17 10:39 | XMS_ITS | Encounter Summary ---
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, sequela Closed compression fracture of L1 lumbar vertebra with delayed healing, subsequent encounter Malignant neoplasm of prostate Zbigniew Thompson PA [facility] Interventionl Rad Procedures IR Vertebroplasty Lumbar Multiple Levels IR Vertebral Augmentation Lumbar Single Level [facility] [place] [address] [place] [address] Fax: Referral ID Status Reason Start Date Expiration Date Visits V isits Requested Authorized [id number] Closed Specialty 07/13/2019 07/12/2020 1 1 Service Requested iagnostic Test (Routine) - Closed Specialty Diagnoses / Procedures Referred By Contact Refer red To Contact Radiology Diagnoses Closed compression fracture of L1 lumbar vertebra with delayed healing, subsequent encounter Malignant neoplasm of prostate Zbigniew Thompson PA [facility] Interventionl Rad Procedures [place] [address] [place] [address] Fax: Referral ID Status Reason Start Date Expiration Date Visits V isits Requested Authorized [id number] Closed Specialty 07/13/2019 07/12/2020 1 1 Service Requested Reason for Visit Reason Comments Back Pain Consultation (ANDREINA) - Closed Specialty Diagnoses / Procedures Referred By Contact Refer red To Contact [facility] Diagnoses Collapsed vertebra, not elsewhere classified, lumbar region, subsequent encounter for fracture with routine healing Bobby Das MD [facility] [address] [place], [place] Drive [address] [place] [address] Phone: Fax: Referral ID Status Reason Start Date Expiration Date Visits V isits Requested Authorized [id number] Closed Consult, 06/30/2019 06/29/2020 1 1 Test & Treat Connection Center Encounter Details Date Type Department Care Team Description 07/13/2019 Office Visit [facility] Zbigniew Thompson, Closed compression fracture of L1 lumbar vertebra with delayed healing, subsequent encounter; at [facility] Malignant neoplasm of prostate; [facility] Age -related 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, sequela [address] [place], [place] [phone] Social History Tobacco Use Types Packs/Day Years [...] [facility] DR GASTROENTEROLOGY DEPT [place], [place] [address] (Wo rk) 09/05/2022 Appointment Cardiology Trinity Reid MD [facility] CARDIOLOGY [place], [place] [address] (Wo rk) 09/05/2022 Office Visit Cardiology Trinity Reid MD [facility] CARDIOLOGY [place], [place] [address] (Wo rk) documented as of [...] made and a 13g a introducer needle (Expanite) was advanced through the right pedicle and [...] made an d a 13ga introducer needle (Expanite) was advanced through the left pedicle and [...] signed by: Bobby Sullivan MD, [facility] ([phone]), at 07/20/2019 1:20 PM Procedure Note Bobby [...] made and a 13g a introducer needle (Expanite) was advanced through the right pedicle and [...] made an d a 13ga introducer needle (Expanite) was advanced through the left pedicle and [...] made and a 13g a introducer needle (Expanite) was advanced through the right pedicle and [...] made an d a 13ga introducer needle (Expanite) was advanced through the left pedicle and [...] signed by: Bobby Sullivan MD, [facility] ([phone]), at 07/20/2019 1:20 PM Procedure Note Bobby [...] made and a 13g a introducer needle (Expanite) was advanced through the right pedicle and [...] made an d a 13ga introducer needle (Expanite) was advanced through the left pedicle and [...] signed by: Bobby Sullivan MD, [facility] ([phone]), at 07/20/2019 1:20 PM Elmer Loya MD [...] sequela documented in this encounter Care Teams Automotive Exhaust Emissions Technician Relationship Specialty Start Date End Date Bobby Das MD PCP - General 10/02/[address] [place] [address] [place] [phone] documented as of this encounter
--- OUTSIDE RECORDS SUMMARY | 2022-07-17 10:39 | XMS_ITS | Encounter Summary ---
:1940 Author Organization [facility] [address] Care Team Providers Name Role Phone Bobby Das MD Primary Care Provider Encounter Details Date Type Department Care Team Description 12/13/2016 Telephone Pain Management at [facility] [address] Social History Tobacco Use Types Packs/Day [...] [facility] DR GASTROENTEROLOGY DEPT [place], [place] 0[address] (Wo rk) 09/05/2022 Appointment Cardiology Trinity Reid MD [facility] CARDIOLOGY [place], [place] [address]375 (Wo rk) 09/05/2022 Office Visit Cardiology Trinity Reid MD [facility] CARDIOLOGY [place], [place] [address] (Wo rk) documented as of this encounter Visit Diagnoses Not on filedocumented in this encounter Care Teams Leguillon Debeader Relationship Specialty Start Date End Date Bobby Das MD PCP - General 10/02/[address] [place] [address] [place] [phone] documented as of this encounter
--- OUTSIDE RECORDS SUMMARY | 2022-07-17 10:39 | XMS_ITS | Encounter Summary ---
:1940 Author Organization [facility] [place] [place] [address] Care Team Providers Name Role Phone Bobby Das MD Primary Care Provider Encounter Details Date Type Department Care Team Description 07/20/2019 Laboratory Lab 3L Ifrah Gastrointestina l Appointment [facility] hemorrhag e, unspecified Hospital gastrointestinal [facility] [place] [phone] Social History Tobacco Use Types Packs/Day Years [...] [facility] DR GASTROENTEROLOGY DEPT [place], [place] [address] (Wo rk) 09/05/2022 Appointment Cardiology Trinity Reid MD [facility] CARDIOLOGY [place], [place] [address]375 (Wo rk) 09/05/2022 Office Visit Cardiology Trinity Reid MD [facility] CARDIOLOGY [place], [place] [address]375 (Wo rk) documented as of this encounter Procedures Procedure Name Priority Date/Time Associated Diagnosis Comme [facility] HEMOGRAM Routine 07/20/2019 8:18 Gastrointestinal Results for [...] Time Signature WBC 6.0 4.0 - 9.5 [facility] LAB[facility]ATORY RBC 4.50 (L) 4.58 [facility] 5.54 [facility] x10(6)/[facility] LABORATORY Hemoglobin 14.8 13.7 - [facility] 16.5 gm/dL [facility] LABORATORY Hematocrit 43.9 40.5 - [facility] 48.5 % [facility] LABORATORY MCV 97.6 (H) 82.9 - [facility] 93.1 [facility] LABORATORY MCH 32.9 (H) 27.5 [facility] 32.1 pg [facility] LABORATORY MCHC 33.7 32.0 - [facility] 35.7 gm/dL [facility] LABORATORY Platelets 164 145 - 357 [facility] x10(3)/[facility] LABORATORY RDWSD 49.3 (H) 36.0 - [facility] 45.0 [facility] LABORATORY RDWCV 13.6 11.4 - [facility] 13.8 % [facility] LABORATORY MPV 10.0 7.6 - 12.9 [facility] LABORATORY nRBC % Auto 0.0 % [facility] LABORATORY nRBC Abs Auto 0.000 0.000 - [facility] 0.000 [facility] x10(3)/[facility] LABORATORY Specimen Anatomical Collection Method Collection Time Receive d Time (Source) Location / / Volume Laterality Blood specimen 07/20/2019 8:18 AM 019 8:21 (specimen) EDT AM EDT Resulting Agency Comment Spec In Lab Bobby Marshall MD HEMATOLOGY ORDERABLES Performing Organization Address City/State/[place] [address] Prothrombin Time (07/20/2019 8:18 AM EDT) P athologist Signature PT 11.3 9.4 - 12.5 [facility] LABORATORY INR 1.0 [facility] LABORATORY [...] Organization Address City/State/[place] [address] documented in this encounter Visit Diagnoses Diagnosis Gastrointestinal hemorrhage, unspecified gastrointestinal hemorrhage type documented in this encounter Care Teams Transfer And Pumphouse Operator Relationship Specialty Start Date End Date Bobby Das MD PCP - General 10/02/[address] [place] [address] [place], [place] [address] documented as of this encounter
--- OUTSIDE RECORDS SUMMARY | 2022-07-17 10:39 | XMS_ITS | Encounter Summary ---
:1940 Author Organization [facility] [place] [address] Care Team Providers Name Role Phone Bobby Das MD Primary Care Provider Encounter Details Date Type Department Care Team Description 07/26/2015 External Results Medical Records Provider, Scanning [facility] [place] [address] Social History Tobacco Use Types Packs/Day Years Used Date Current Some Day Smoker 1 50 Smokeless Tobacco: Never Used Sex Assigned at Date Recorded Not on file documented as of this encounter Plan of Treatment Upcoming Encounters Date Type Specialty Care Team Description 08/08/2022 Office Visit Gastroenterology Negra Collins MD [facility] GASTROENTEROLOGY DEPT [place], [place] [address] (Wo rk) 09/05/2022 Appointment Cardiology Trinity Reid MD [facility] CARDIOLOGY [place], [place] [address] (Wo rk) 09/05/2022 Office Visit Cardiology Trinity Reid MD [facility] CARDIOLOGY [place], [place] 0375 (Wo rk) documented as of [...] filedocumented in this encounter Care Teams Business Administration Professor Relationship Specialty Start Date End Date Bobby Das MD PCP - General 10/02/[address] [place] [address] [place] [phone] documented as of this encounter
--- OUTSIDE RECORDS SUMMARY | 2022-07-17 10:39 | XMS_ITS | Encounter Summary ---
:1940 Author Organization [facility] [place] [address] Care Team Providers Name Role Phone Bobby Das MD Primary Care Provider Encounter Details Date Type Department Care Team Description 07/25/2015 Hospital Encounter Laboratory Leo Solo, [facility] [place] [address]-DERMATOLOGY [place], [place] [address] (Wo rk) Social History Tobacco [...] Collins MD [facility] GASTROENTEROLOGY DEPT [place], [place] [address] (Wo rk) 09/05/2022 Appointment Cardiology Trinity Reid MD [facility] CARDIOLOGY [place], [place] [address]375 (Wo rk) 09/05/2022 Office Visit Cardiology Trinity Reid MD [facility] CARDIOLOGY [place] [address] (Wo rk) documented as of this encounter Procedures Procedure Name Priority Date/Time Associated Diagnosis Comme nts SURGICAL PATHOLOGY Routine 07/25/2015 9:51 AM Res ults for this REPORT EDT procedure are i n the results section. documented in this encounter Results Surgical Pathology Report (07/25/2015 9:51 AM EDT) Component Value Ref Test Analysis Performed At [facility] Method Time Signature Surgical The signing pathologist has (i) examined the relevant preparation(s) for the [facility] Pathology specimen(s) and (ii) rendered or confirmed the diagnosis(e s). [facility] Report Accession Number: [id number] . ?Surgic al Pathology DIAGNOSIS CONSULTATION CASE Outside slides labeled [id number], collection date 07/03/2015 . Skin, right muslim, excision: ?- ??BASAL CELL CARCINOMA, INFILTRATIVE TYPE [...] CONSULTATION CASE A - 3 slides labeled [id number], collection date 07/03/2015. [id number] Report to: [facility] Surgical Pathology Department [facility], [address], 2nd Floor [address] [place], [place] ??[address] SPECIMEN PROCESSING [facility] ([facility]) pathology slide(s) are reviewed. ??Refer to Diagnosis and Specimen Submitted for specific case infor arpan. For the full text of the [facility] ([facility]) report(s) please refer to Non-DH Documentati on Pathology in the electronic health record (eDH). Specimen (Source) Anatomical Collection Method Collection Time Re ceived Time Location / / Volume Laterality 07/25/2015 9:51 AM EDT Leo Solo MD PATHOLOGY/CYTOLOGY ORDERABLE S Performing Organization Address City/State/[place] [address] [facility] documented in this encounter Visit Diagnoses Not on filedocumented in this encounter Care Teams Chronometer Adjuster Relationship Specialty Start Date End Date Bobby Das MD PCP - General 10/02/[address] [place] [address] [place] [phone] documented as of this encounter
--- OUTSIDE RECORDS SUMMARY | 2022-07-17 10:39 | XMS_ITS | Encounter Summary ---
:1940 Author Organization [facility] [place] [address] Care Team Providers Name Role Phone Bobby Das MD Primary Care Provider Encounter Details Date Type Department Care Team Description 12/20/2016 Telephone Pain Management at [facility] Kristin Schultz, [facility] [place] [address] Social History Tobacco Use Types Packs/Day Years Used Date Current Some Day Smoker 1 50 Smokeless Tobacco: Never Used Sex Assigned at Date Recorded Not on file documented as of this encounter Miscellaneous Notes Telephone Encounter - Kristin Schultz LPN - 12/20/2016 11:02 AM EST Pt called requesting that the Referral to Hematology and Oncology be sent to [facility]. Which iscloser to [place] home. Will Follow up up with the pain clinic after appointment. documented in this encounter Plan of Treatment Upcoming Encounters Date Type Specialty Care Team Description 08/08/2022 Office Visit Gastroenterology Negra Collins MD [facility] GASTROENTEROLOGY DEPT [place], [place] [address] (Wo rk) 09/05/2022 Appointment Cardiology Trinity Reid MD [facility] CARDIOLOGY [place], [place] 0375 (Wo rk) 09/05/2022 Office Visit Cardiology Trinity Reid MD [facility] CARDIOLOGY [place], [place] [address] (Wo rk) documented as of this encounter Visit Diagnoses Not on filedocumented in this encounter Care Teams Transportation Engineer Relationship Specialty Start Date End Date Bobby Das MD PCP - General 10/02/[address] [place] [address] [place] [phone] documented as of this encounter
--- OUTSIDE RECORDS SUMMARY | 2022-07-17 10:39 | XMS_ITS | Encounter Summary ---
:1940 Author Organization [facility] [place] [address] Care Team Providers Name Role Phone Bobby Das MD Primary Care Provider Reason for Referral Diagnostic Test (Routine) - Specialty Diagnoses / Procedures Referred By Contact Refer ramila To Contact Radiology Diagnoses Chest pain, unspecified type Chronic abdominal pain Chano Rebolledo MD [facility] Rad Ct Scan Procedures CT Chest w Contrast CT Chest wo Contrast (Generic) [facility] [place] [address] [place] [address] Referral ID Status Reason Start Date Expiration Visits Visits Date Requested Authorized [id number] Specialty 12/13/2016 12/13/2017 1 1 Service Requested Consultation (Routine) - Closed Specialty Diagnoses / Procedures Referred By Contact Refer ramila To Contact Neurology Diagnoses Radiculopathy of cervical region Chano Rebolledo MD [facility] Neurology 3c [facility] [place] [address] [place] [address] Referral ID Status Reason Start Date Expiration Date Visits V isits Requested Authorized [id number] Closed Test Only 12/13/2016 12/13/2017 1 1 Diagnostic Test (Routine) - Closed Specialty Diagnoses / Procedures Referred By Contact Refer red To Contact Radiology Diagnoses Chest pain, unspecified type Chronic abdominal pain Chano Rebolledo MD [facility] Rad Ct Scan Procedures CT Abdomen & Pelvis w Contrast [facility] [place] [address] [place] [address] Referral ID Status Reason Start Date Expiration Date Visits V isits Requested Authorized [id number] Closed Specialty 12/13/2016 12/13/2017 1 1 Service Requested Reason for Visit Reason Comments Pain Management Neck Pain Bilateral Arm Pain burning across sternum and r ibs, both sides Consultation (Routine) - Closed Specialty Diagnoses / Procedures Referred By Contact Refer red To Contact Pain Management Diagnoses cervical radiculopathy Bobby Das MD [facility] [address] [place] [address] [address] [place], [place] [address] [address] [place] [address] Fax: Referral ID Status Reason Start Date Expiration Date Visits V isits Requested Authorized [id number] Closed Consult, 11/22/2016 11/22/2017 1 1 Test & Treat Encounter Details Date Type Department Care Team Description 12/13/2016 Office Visit Pain Management at [facility], Chest adrianna n, unspecified type; Jose Sullivan MD Chronic abdominal pain; [facility] Radiculop athy of cervical region [facility] [place] [address] [place] [address] Social History Tobacco Use Types [...] Rebolledo MD - 12/13/2016 1:00 PM EST [facility] [place] [address] Phone: PAIN MANAGEMENT NEW PATIENT / CONSULTATION NOTE DATE OF VISIT 12/13/2016 Patient Koko Zamora 1940 REFERRING PROVIDER Bobby Das MD [address] [place] [address] [place] [address] PRIMARY CARE PROVIDER Bobby Das MD CHIEF [...] Aspirin Other (See Comments) 06/28/2011 MEDICATIONS The [place] and [place] Prescription Monitoring Program were checked & no [...] restless FUNCTIONAL /SOCIAL Lives with: 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 Follow up: -Patient will be called after results are obtained. Koko J Zamora had the opportunity to ask questions and indicated that all questions were answered to his satisfaction. Thank you for this referral, Bobby Das MD [address] [place] [address]. Chano Rebolledo MD Leonel Orozco MD - [...] [facility] DR GASTRO[facility]OLOGY DEPT [place], [place] [address] (Wo rk) 09/05/2022 Appointment Cardiology Trinity Reid MD [facility] CARDIOLOGY [place], [place] [address]375 (Wo rk) 09/05/2022 Office Visit Cardiology Trinity Reid MD [facility] CARDIOLOGY [place], [place] [address]375 (Wo rk) Scheduled Referrals Name [...] site documented in this encounter Care Teams Planting Supervisor Relationship Specialty Start Date End Date Bobby Das MD PCP - General 10/02/[address] [place] [address] [place] [phone] documented as of this encounter
--- OUTSIDE RECORDS SUMMARY | 2022-07-17 10:39 | XMS_ITS | Encounter Summary ---
:1940 Author Organization [facility] [place] [address] Care Team Providers Name Role Phone Bobby Das MD Primary Care Provider Reason for Visit Reason Onset Date Comments Pre Procedure Call 08/01/2015 Encounter Details Date Type Department Care Team Description 08/01/2015 Telephone Dermatology at [facility] Cassy Jacobson, Pre Procedure Call [address] [employer] [place] [address] Social History Tobacco Use Types Packs/Day [...] MD [facility] DR GASTROENTEROLOGY DEPT [place], [place] 0375 (Wo rk) 09/05/2022 Appointment Cardiology Trinity Reid MD [facility] CARDIOLOGY [place], [place] [address]375 (Wo rk) 09/05/2022 Office Visit Cardiology Trinity Reid MD [facility] ER CARDIOLOGY [place], [place] [address] (Wo rk) documented as of this encounter Visit Diagnoses Not on filedocumented in this encounter Care Teams Geophysics Scientist Relationship Specialty Start Date End Date Bobby Das MD PCP - General 10/02/[address] [place] [address] [place] [phone] documented as of this encounter
--- OUTSIDE RECORDS SUMMARY | 2022-07-17 10:39 | XMS_ITS | Encounter Summary ---
:1940 Author Organization [facility] [address] Care Team Providers Name Role Phone Bobby Das MD Primary Care Provider Encounter Details Date Type Department Care Team Description 08/06/2020 Ancillary Procedure Radiology at [facility] Amy Grimaldo [address] [place] [address] [address] [phone] NEUROSURGERY-N [place]ov[place], [place] [address] Social History Tobacco Use Types [...] 08/08/2022 Office Visit Gastroenterology Negra Collins MD [facility] GASTROENTEROLOGY DEPT [place], [place] [address]375 (Wo rk) 09/05/2022 Appointment Cardiology Trinity Reid MD [facility] CARDIOLOGY [place], [place] [address]375 (Wo rk) 09/05/2022 Office Visit Cardiology Trinity Reid MD [facility] CARDIOLOGY [place], [place] [address]375 (Wo rk) documented [...] Organization Address City/State/ZIP Code Phon e Number [place], [place] documented in this encounter Visit Diagnoses Not on filedocumented in this encounter Care Teams Sales Process Manager Relationship Specialty Start Date End Date Bobby Das MD PCP - General 10/02/[address] [place] [address] [place] [phone] documented as of this encounter
--- OUTSIDE RECORDS SUMMARY | 2022-07-17 10:39 | XMS_ITS | Encounter Summary ---
:1940 Author Organization [facility] [place] [address] Care Team Providers Name Role Phone Bobby Das MD Primary Care Provider Reason for Visit Reason Comments Basal Cell Carcinoma Consultation (Routine) - Closed Specialty Diagnoses / Procedures Referred By Contact Refer red To Contact Dermatology Diagnoses REQUESTING MOHS PROCEDURE RIGHT EYEBROW FOR LESION REMOVED BUT ADDITIONAL TISSUE REMAINS Bobby Das MD Vidal, Nahid Y, MD [address] [place] [address] [place] [address] [place] [address] Fax: Referral ID Status Reason Start Date Expiration Date Visits V isits Requested Authorized [id number] Closed Consult, 06/24/2018 06/24/2019 1 1 [facility] Encounter Details Date Type Department Care Team Description 09/23/2018 Procedure visit Dermatology at [facility], Basal cell carcinoma Nicol CARCAMO (BCC) of eyebrow [address] [facility] [address] [place] [address] [phone] Social History Tobacco Use Types Packs/Day Years [...] Llanos MD. Your wound(s) was repaired by [id number] stitches called a primary repair. You do [...] until your sutures are removed. 5. Some short range air defense artillery may need to be delayed or delegated [...] as often as is recommended by your supply chain logistics manager, for new skin cancers. This is once [...] it. If after hours, please call the pump operator or [phone] and ask for the supply chain logistics manager on-call. If you have any non-urgent questions or concerns, please feel free to call my office or contact me through our patient portal, [employer], at [email or web address] How to contact us during business hours Dermatology at [facility] Road: Mohs scheduling or Mohs follow-up appointments: [phone] documented in this encounter Progress Notes Alvaro [...] Who lives with patient (i.e. spouse, children, fdc/fci)? Spouse Relevant travel history or future plans: [...] follow up with his or her referring supply chain logistics manager or other skin provider. Summary of Procedure(s): [...] Date: 09/23/2018 Staff Surgeon: Alvaro Llanos MD Nursing/Area Operations Director(s): Assistants: Cassy Jacobson LPN, Jolene Pretty RN, Yolanda Fraser LPN, Savanah Licea CMA Commissioned Police Officer (s): Cristina Cisneros Amanda Isenor Pre-operative [...] The site was confirmed with the patient/authorized career services representative/referring physician and/or a photograph form time [...] Right eyebrow Indication: repair of wound for sikh of function/anatomy Final Defect size: 1.5 x [...] Care Team Description 08/08/2022 Office Visit Gastroenterology Nerga Collins MD [facility] [place] [address] (Wo rk) 09/05/2022 Appointment Cardiology Trinity Reid MD [facility] ER CARDIOLOGY [place], [place] [address] (Wo rk) 09/05/2022 Office Visit Cardiology Trinity Reid MD [facility] CARDIOLOGY [place], [place] [address] (Wo rk) documented as of this encounter Visit Diagnoses Diagnosis Basal cell carcinoma (BCC) of eyebrow documented in this encounter Care Teams Ballet Teacher Relationship Specialty Start Date End Date Bobby Das MD PCP - General 10/02/[address] [place] [address] [place] [address] documented as of this encounter
--- OUTSIDE RECORDS SUMMARY | 2022-07-17 10:39 | XMS_ITS | Encounter Summary ---
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, sequela Closed compression fracture of L1 lumbar vertebra with delayed healing, subsequent encounter Malignant neoplasm of prostate Zbigniew Thompson PA [facility] Interventionl Rad Procedures IR Vertebroplasty Lumbar Multiple Levels IR Vertebral Augmentation Lumbar Single Level [facility] [place] [address] [place] [address] Fax: Referral ID Status Reason Start Date Expiration Date Visits V isits Requested Authorized [id number] Closed Specialty 07/13/2019 07/12/2020 1 1 Service Requested iagnostic Test (Routine) - Closed Specialty Diagnoses / Procedures Referred By Contact Refer red To Contact Radiology Diagnoses Closed compression fracture of L1 lumbar vertebra with delayed healing, subsequent encounter Malignant neoplasm of prostate Zbigniew Thompson PA [facility] Interventionl Rad Procedures [place] [address] [place] [address] Fax: Referral ID Status Reason Start Date Expiration Date Visits V isits Requested Authorized [id number] Closed Specialty 07/13/2019 07/12/2020 1 1 Service Requested Reason for Visit Diagnostic Test (Routine) - Closed Specialty Diagnoses / Procedures Referred By Contact Refer red To Contact Radiology Diagnoses 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, sequela Closed compression fracture of L1 lumbar vertebra with delayed healing, subsequent encounter Malignant neoplasm of prostate Zbigniew Thompson, PA [facility] Interventionl Rad Procedures IR Vertebroplasty Lumbar Multiple Levels IR Vertebral Augmentation Lumbar Single Level [facility] [place] [facility] [place] [address] [place] [address] Fax: Referral ID Status Reason Start Date Expiration Date Visits V isits Requested Authorized [id number] Closed Specialty 07/13/2019 07/12/2020 1 1 Service Requested Encounter Details Date Type Department Care Team Description 07/20/2019 Hospital Encounter Radiology at [facility] Elmer Loya, Closed compression fracture of L1 lumbar vertebra with delayed healing, subsequent encounter; [facility] Malignant neoplasm of prostate; Drive [facility] Age-related osteoporosis wit h current pathological fracture of vertebra, sequela [place], [place] CENTER [address] [facility] [phone] [place] [address] Social History Tobacco Use Types Packs/Day Years [...] Martínez RN - 07/20/2019 10:06 AM EDT [facility] Discharge Instructions for Vertebroplasty Your vertebroplasty was [...] is during regular office hours, please call [phone]. If it is after regular office hours, oron weekends or holidays, please call [phone] and ask to speak to the Teachers Assistant on callfor Interventional Radiology. XXX You [...] of : 1940 AGE: 78 y.o. Address: [address] [place] [address] [place] [phone] (home) Mobile: No relevant phone numbers on file. Referring Provider: Zbigniew Thompson REASON FOR VISIT: Order Questions Answers Where will study be performed? [facility] Radiology [120] Specify location Lumbar Reason [...] MD [facility] GASTROENTEROLOGY DEPT [place], [place] [address] (Wo rk) 09/05/2022 Appointment Cardiology Trinity Reid MD [facility] CARDIOLOGY [place], [place] [address] (Wo rk) 09/05/2022 Office Visit Cardiology Trinity Reid MD [facility] CARDIOLOGY [place], [place] [address] (Wo rk) documented as of [...] made and a 13g a introducer needle (KakKstati) was advanced through the right pedicle and [...] made an d a 13ga introducer needle (KakKstati) was advanced through the left pedicle and [...] made and a 13g a introducer needle (KakKstati) was advanced through the right pedicle and [...] made an d a 13ga introducer needle (KakKstati) was advanced through the left pedicle and [...] For questions regarding this report, please contact [facility] number below. Elmer Loya MD IMG [...] made and a 13g a introducer needle (KakKstati) was advanced through the right pedicle and [...] made an d a 13ga introducer needle (KakKstati) was advanced through the left pedicle and [...] made and a 13g a introducer needle (KakKstati) was advanced through the right pedicle and [...] made an d a 13ga introducer needle (KakKstati) was advanced through the left pedicle and [...] Component Value Ref Test Analysis Performed At [facility] Method Time Signature Surgical [id number] ? [facility] The signing pathologist has (i) examined [...] Spence MD Verified: ??07/22/2019 ?Pathologist Performed at: ??-[facility] Dept. of Pathology, [place], [place] DISCUSSION Deeper levels into the biopsy [...] Organization Address City/State/[place] [address] Specimen to Pathology (07/20/2019 8:41 AM EDT) Specimen Anatomical Collection Method Collection Time Receive d Time (Source) Location / / Volume Laterality AP Specimen 07/20/2019 8:41 AM 9 8:41 EDT AM EDT Narrative [facility] - 07/20/2019 8:41 AM EDT Specimen requisition ordered. ??Separate Pathology report to follow Elmer Loya MD PATHOLOGY/CYTOLOGY ORDERABLE S Performing Organization Address City/State/[place] [address] documented in this encounter [...] mg documented in this encounter Care Teams Clinical Marketing Manager Relationship Specialty Start Date End Date Bobby Das MD PCP - General 10/02/[address] [place] [address] [place] [phone] documented as of this encounter
--- OUTSIDE RECORDS SUMMARY | 2022-07-17 10:39 | XMS_ITS | Encounter Summary ---
:1940 Author Organization [facility] [place] [address] Care Team Providers Name Role Phone Bobby Das MD Primary Care Provider Reason for Visit Reason Comments Follow-up Encounter Details Date Type Department Care Team Description 05/31/2014 Office Visit Dermatology at [facility], History of basal cell Nba CARCAMO carcinoma (Primary [address] [place] [address] [facility] Dx) [facility] B DERMATOLOGY [place], [place] [address] [phone] Social History Tobacco Use Types Packs/Day Years [...] more? Visit our health information library at [email or web address] You can also view health information on [employer]ango, your personal patient account. Log in or sign up today. Enter L364 in the search box to learn more about Actinic Keratosis: After Your Visit. ?? [phone]. Care instructions adapted under license by [facility]. This care instruction is for use with your licensed healthcare professional. If you have questionsabout a medical condition or this instruction, always ask your healthcare professional. [employer] disclaims any warranty or liability for your use of this information. Content Version: [id number]; Last Revised: December 22, 2012 documented in this encounter Progress Notes Hammer, Cy J, MD - 05/31/2014 2:08 PM EDT Problem: Follow up for repeat skin checkup. Shadi follows up after last being seen in March. At that time, I removed using shave C and D a BCCA from the right lateral canthus and a BCCA from the right lateral taoist. I also treated a verruca vulgaris on [...] MD [facility] GASTROENTEROLOGY DEPT [place], [place] [address] (Wo rk) 09/05/2022 Appointment Cardiology Trinity Reid MD [facility] [address] [place], [place] [address] (Wo rk) 09/05/2022 Office Visit Cardiology Trinity Reid MD [facility] [address] [place], [place] [address] (Rebekah rojas) documented as of this encounter Visit Diagnoses Diagnosis History of basal cell carcinoma - Primar y Personal history of other malignant neop lasm of skin documented in this encounter Care Teams Slasher Runner Relationship Specialty Start Date End Date Bobby Das MD PCP - General 10/02/[address] [place] [address] [place] [phone] documented as of this encounter
--- OUTSIDE RECORDS SUMMARY | 2022-07-17 10:39 | XMS_ITS | Encounter Summary ---
:1940 Author Organization [facility] [place] [address] Care Team Providers Name Role Phone Bobby Das MD Primary Care Provider Reason for Visit Reason Comments Skin Check Encounter Details Date Type Department Care Team Description 03/29/2014 Office Visit Dermatology at Cy Knight, Kyle c ell carcinoma (Primary Dx); Nba CARCAMO Verruca vulgaris; [address] [place] (actinic keratosis) [facility] B DERMATOLOGY [place], [place] [address] [phone] Social History Tobacco Use Types Packs/Day Years [...] sun over the years. He lives in [place], [place]. Physical examination reveals a pleasant, 73-year-old gentleman who has a pearly, 1-cm papule on the right lateral canthus, site A; and a pearly papule about 8 mm in diameter, site C, on the right mormon at the scalp line. At the central [...] BCCAs, right lateral canthus and right lateral mormon, sites A and C, respectively. a. After [...] Negra Collins MD [facility] GASTROENTEROLOGY DEPT [place], [place] [address] (Wo rk) 09/05/2022 Appointment Cardiology Trinity Reid MD [facility] CARDIOLOGY [place], [place] [address]375 (Wo rk) 09/05/2022 Office Visit Cardiology Trinity Reid MD [facility] CARDIOLOGY [place], [place] [address] (Wo rk) documented as of this encounter Visit Diagnoses Diagnosis Basal cell carcinoma - Primary Basal cell carcinoma of skin, site unspe cified Verruca vulgaris Viral warts, unspecified [place] (actinic keratosis) Actinic keratosis documented in this encounter Care Teams Hotel Sales Manager Relationship Specialty Start Date End Date Bobby Das MD PCP - General 10/02/[address] [place] [address] [place] [address] documented as of this encounter
--- OUTSIDE RECORDS SUMMARY | 2022-07-17 10:39 | XMS_ITS | Encounter Summary ---
:1940 Author Organization [facility] Address [facility] [address] [place] [address] Care Team Providers Name Role Phone Bobby Das MD Primary Care Provider Reason for Visit - Closed Specialty Diagnoses / Procedures Referred By Contact Refer red To Contact Procedures Bobby Das MD Film Library- Storage Only [facility] [place] [address] Referral ID Status Reason Start Date Expiration Date Visits Requ ested Visits Authorized [id number] Closed 02/23/2021 02/23/2022 1 1 Encounter Details Date Type Department Care Team Description 03/16/2020 Ancillary Procedure Radiology Library at Bobby Almaguer MD [address] [phone] [phone] (Rebekah rojas) Social History Tobacco Use Types [...] Negra Collins MD [facility] GASTROENTEROLOGY DEPT [place], [place] [address] (Wo rk) 09/05/2022 Appointment Cardiology Trinity Reid MD [facility] CARDIOLOGY [place], [place] [address] (Wo rk) 09/05/2022 Office Visit Cardiology Trinity Reid MD [facility] ER CARDIOLOGY [place], [place] [address] (Wo rk) documented as of [...] Organization Address City/State/ZIP Code Phon e Number [place], [place] documented in this encounter Visit Diagnoses Not on filedocumented in this encounter Care Teams Homeopathic Doctor Relationship Specialty Start Date End Date Bobby Das MD PCP - General 10/02/[address] [place] [address] [place] [phone] documented as of this encounter
--- OUTSIDE RECORDS SUMMARY | 2022-07-17 10:39 | XMS_ITS | Encounter Summary ---
:1940 [place] [address] Care Team Providers Name Role Phone Bobby Das MD Primary Care Provider Encounter Details Date Type Department Care Team Description 07/13/2019 Orders Only Radiology Alan Brink Gastrointestinal [facility] MD Rosa hemorrhage, unspecified [facility] DR hemorrhage type (Primary [id number] RADIOLOGY DEPT Dx) [phone] [place], [place] [address] Social History Tobacco Use Types [...] file Gets together: Not on file Attends congregational service: Not on file Active member of [...] MD [facility] GASTROENTEROLOGY DEPT [place], [place] [address] (Wo rk) 09/05/2022 Appointment Cardiology Trinity Reid MD [facility] CARDIOLOGY [place], [place] [address] (Wo rk) 09/05/2022 Office Visit Cardiology Trinity Reid MD [facility] CARDIOLOGY [place], [place] [address] (Wo rk) documented as of this encounter Results Prothrombin Time (07/20/2019 8:18 AM EDT) P athologist Signature PT 11.3 9.4 - 12.5 [facility]R 1.0 [facility] LABORATORY Comment: An [...] Address City/State/[place] [address] (ABNORMAL) Hemogram (07/20/2019 8:18 AM EDT) Analysis Performed At Patho logist Time Signature WBC 6.0 4.0 - 9.5 [facility] x10(3)/[facility] LABORATORY RBC 4.50 (L) 4.58 - [facility] 5.54 [facility] x10(6)/[facility] LABORATORY Hemoglobin 14.8 13.7 - [facility] 16.5 gm/dL [facility] LABORATORY Hematocrit 43.9 40.5 - [facility] 48.5 % [facility] LABORATORY MCV 97.6 (H) 82.9 - [facility] 93.1 fL [facility] LABORATORY MCH 32.9 (H) 27.5 - [facility] 32.1 pg [facility] LABORATORY MCHC 33.7 32.0 - [facility] 35.7 gm/dL [facility] LABORATORY Platelets 164 145 - 357 [facility] x10(3)/[facility] LABORATORY RDWSD 49.3 (H) 36.0 - [facility] 45.[address] [facility] LABORATORY RDWCV 13.6 11.4 - [facility] 13.8 % [facility] LABORATORY MPV 10.0 7.6 - 12.9 [facility] LABORATORY nRBC % Auto 0.0 % [facility] LABORATORY nRBC Abs Auto 0.000 0.000 - [facility] 0.000 [facility] x10(3)/[facility] LABORATORY Specimen Anatomical Collection Method Collection Time Receive d Time (Source) Location / / Volume Laterality Blood specimen 07/20/2019 8:18 AM 019 8:21 (specimen) EDT AM EDT Resulting Agency Comment Spec In Lab Bobby Marshall MD HEMATOLOGY ORDERABLES Performing Organization Address City/State/[place] [address] documented in this encounter Visit Diagnoses Diagnosis Gastrointestinal hemorrhage, unspecified gastrointestinal hemorrhage type - Primary documented in this encounter Care Teams Supervisor Cutting And Sewing Room Relationship Specialty Start Date End Date Bobby Das MD PCP - General 10/02/[address] [place] [address] [place] [address] documented as of this encounter
--- OUTSIDE RECORDS SUMMARY | 2022-07-17 10:39 | XMS_ITS | Encounter Summary ---
:1940 Author Organization [facility] [address] Care Team Providers Name Role Phone Bobby Das MD Primary Care Provider Encounter Details Date Type Department Care Team Description 06/16/2019 Ancillary Procedure Radiology Library at Bobby Almaguer MD [facility] [address] [place] [phone] (Wo rk) Social History Tobacco Use Types Packs/Day Years Used Date Current Some Day Smoker 1 50 Smokeless Tobacco: Never Used Sex Assigned at Date Recorded Not on file documented as of this encounter Plan of Treatment Upcoming Encounters Date Type Specialty Care Team Description 08/08/2022 Office Visit Gastroenterology Negra Collins MD [facility] DR GASTROENTEROLOGY DEPT [place], [place] [address] (Wo rk) 09/05/2022 Appointment Cardiology Trinity Reid MD [facility] CARDIOLOGY [place], [place] [address] (Wo rk) 09/05/2022 Office Visit Cardiology Trinity Reid MD [facility] CARDIOLOGY [place], [place] [address] (Wo rk) documented as of [...] Organization Address City/State/ZIP Code Phon e Number [place], [place] documented in this encounter Visit Diagnoses Not on filedocumented in this encounter Care Teams Manager Pricing Relationship Specialty Start Date End Date Bobby Dsa MD PCP - General 10/02/[address] [place] [address] [place] [phone] documented as of this encounter
--- OUTSIDE RECORDS SUMMARY | 2022-07-17 10:39 | XMS_ITS | Encounter Summary ---
:1940 Author Organization [facility] [place] [address] Care Team Providers Name Role Phone Bobby Das MD Primary Care Provider Encounter Details Date Type Department Care Team Description 12/16/2016 [facility] [place] [address] Social History Tobacco Use Types Packs/Day [...] Team Description 08/08/2022 Office Visit Gastroenterology Negra Clolins MD [facility] GASTROENTEROLOGY DEPT [place], [place] [address] (Wo rk) 09/05/2022 Appointment Cardiology Trinity Reid MD [facility] CARDIOLOGY [place], [place] [address] (Wo rk) 09/05/2022 Office Visit Cardiology Trinity Reid MD [facility] CARDIOLOGY [place], [place] [address] (Wo rk) documented as of this encounter Visit Diagnoses Not on filedocumented in this encounter Care Teams Therapy Teacher Relationship Specialty Start Date End Date Bobby Das MD PCP - General 10/02/[address] [place] [address] [place] [phone] documented as of this encounter
--- OUTSIDE RECORDS SUMMARY | 2022-07-17 10:39 | XMS_ITS | Encounter Summary ---
:1940 [place] [address] Care Team Providers Name Role Phone Bobby Das MD Primary Care Provider Reason for Visit Reason Comments Wound Check Encounter Details Date Type Department Care Team Description 10/25/2015 Clinical Support Dermatology at Christine Gonzalez MD Follow up [facility] [address] [facility] [place] [address] [place] [address] [phone] (Wo rk) Social History Tobacco Use Types [...] Collins MD [facility] DR GASTROENTEROLOGY DEPT [place], [place] [address] (Wo rk) 09/05/2022 Appointment Cardiology Trinity Reid MD [facility] CARDIOLOGY [place], [place] [address] (Wo rk) 09/05/2022 Office Visit Cardiology Trinity Reid MD [facility] CARDIOLOGY [place], [place] [address] (Wo rk) documented as of this encounter Visit Diagnoses Diagnosis Follow up documented in this encounter Care Teams Marriage Counselor Relationship Specialty Start Date End Date Bobby Das MD PCP - General 10/02/[address] [place] [address] [place] [phone] documented as of this encounter
--- OUTSIDE RECORDS SUMMARY | 2022-07-17 10:39 | XMS_ITS | Encounter Summary ---
:1940 Author Organization [facility] [place] [address] Care Team Providers Name Role Phone Bobby Das MD Primary Care Provider Reason for Visit Reason Comments Suture / Staple Removal Encounter Details Date Type Department Care Team Description 08/31/2015 Clinical Support Dermatology at [place] Visit for suture Heat Nicol Estrella MD removal [address] [facility] [address] [facility] [phone] RD-DERMATOLOGY [place] [id number] Social History Tobacco Use Types Packs/Day Years Used Date Current Some Day Smoker 1 50 Smokeless Tobacco: Never Used Sex Assigned at Date Recorded Not on file documented as of this encounter Progress Notes Jeni Franco LPN - 08/31/2015 2:47 PM EDT HPI: Patient is a 74 y.o. male with history of basal cell carcinoma, right episcopal, s/p Mohs repairedby transposition flap repair who is presenting for suture removal. Denies complications. Exam: General: No acute distress Skin: Limited examination of right episcopal shows a well-healed flap. There is no erythema, dehiscence, ecchymosis, or drainage. Assessment and Plan 1. Basal cell carcinoma, right episcopal, s/p Mohs repaired by transposition flap repair [...] MD [facility] GASTROENTEROLOGY DEPT [place], [place] [address] (Wo rk) 09/05/2022 Appointment Cardiology Trinity Reid MD [facility] CARDIOLOGY [place], [place] [address] (Wo rk) 09/05/2022 Office Visit Cardiology Trinity Reid MD [facility] CARDIOLOGY [place], [place] [address] (Wo rk) documented as of this encounter Visit Diagnoses Diagnosis Visit for suture removal Encounter for removal of sutures documented in this encounter Care Teams Security Lead Relationship Specialty Start Date End Date Bobby Das MD PCP - General 10/02/[address] [place] [address] [place] [phone] documented as of this encounter
--- OUTSIDE RECORDS SUMMARY | 2022-07-17 10:39 | XMS_ITS | Encounter Summary ---
:1940 Author Organization [facility] [place] [address] Care Team Providers Name Role Phone Bobby Das MD Primary Care Provider Reason for Visit Reason Comments Basal Cell Carcinoma Encounter Details Date Type Department Care Team Description 08/24/2015 Procedure visit Dermatology at [facility] Leo Solo BCC (basal cell Road MD Delores carcinoma of skin) [address] [facility] [address] [facility] [phone] [address] [address] Social History Tobacco Use Types Packs/Day Years [...] when the wound is well cared for. [place] drainage or slight yellow film on your [...] the hospital number and ask for the Wheat Inspector oracle consultant. Wound Care for Sutured Wounds You should [...] the hospital number and ask for the Wheat Inspector oracle consultant. documented in this encounter Progress Notes Leo Solo MD - 08/24/2015 3:25 PM EDT Operative Report Patient name: Koko Zamora : 1940 Date: 08/24/2015 Staff Surgeon: Leo Solo MD, PhD Lorry Weigher I: Cassy Jacobson, Yolanda Verdin, Etta Burciaga, Gloria Culver MD Trade Specialist: Kourtney Cabrera Pre-operative diagnosis: Basal cell carcinoma Post-operative diagnosis: Basal cell carcinoma Location: Right [place] Procedure: Mohs micrographic surgery Indication for Mohs micrographic surgery: Critical anatomic location Stages: 2 Final defect size: 3.6 x 2.0 cm Stage I The nature and purpose of the procedure, associated risks, possible consequences and complications,and alternative forms of treatment were explained in detail. Informed consent and permission to takephotographs were obtained. The site was confirmed with the patient/authorized sales representative meats/referring physician and a pre-operative time-out was conducted [...] 08/24/2015 Staff Surgeon: Leo Solo MD, PhD Lorry Weigher I: Yolanda Rivera, Estefania Welch Clinical Diagnosis: 3.6 x 2.0 cm surgical defect secondary to Mohs microscopically controlled excision of basal cell carcinoma Location: Right [place] Procedure: Transposition flap repair Due to the [...] Negra Collins MD [facility] GASTROENTEROLOGY DEPT [place], [place] [address] ([facility]) 09/05/2022 Appointment Cardiology Trinity Reid MD [facility] CARDIOLOGY [place], [place] [address] ([facility]) 09/05/2022 Office Visit Cardiology Triinty Reid MD [facility] CARDIOLOGY [place], [place] [address] ([facility]) documented as of this encounter Visit Diagnoses Diagnosis BCC (basal cell carcinoma of skin) Basal cell carcinoma of skin, site unspe cified documented in this encounter Care Teams Teller Vault Relationship Specialty Start Date End Date Bobby Das MD PCP - General 10/02/[address] [place] [address] [place] [address] documented as of this encounter
--- OUTSIDE RECORDS SUMMARY | 2022-07-17 10:39 | XMS_ITS | Encounter Summary ---
:1940 [place] [address] Care Team Providers Name Role Phone Bobby Das MD Primary Care Provider Encounter Details Date Type Department Care Team Description 08/25/2015 Telephone Dermatology at [facility] Gloria Ferrell MD [address] [facility] [place] [address] [facility] [phone] [place], [place] [address] (Wo rk) Social History Tobacco [...] [facility] [address] GASTROENTEROLOGY DEPT [place], [place] [address] (Wo rk) 09/05/2022 Appointment Cardiology Trinity Reid MD [facility] CARDIOLOGY [place], [place] [address] (Wo rk) 09/05/2022 Office Visit Cardiology Trinity Reid MD [facility] CARDIOLOGY [place], [place] [address] (Wo rk) documented as of this encounter Visit Diagnoses Not on filedocumented in this encounter Care Teams Elementary School Librarian Relationship Specialty Start Date End Date Bobby Das MD PCP - General 10/02/[address] [place] [address] [place] [phone] documented as of this encounter
--- OUTSIDE RECORDS SUMMARY | 2022-07-17 10:39 | XMS_ITS | Encounter Summary ---
:1940 Author Organization [facility] [place] [address] Care Team Providers Name Role Phone Bobby Das MD Primary Care Provider Encounter Details Date Type Department Care Team Description 09/18/2018 Telephone Dermatology at [facility] Yolanda Fraser RN [address] [place] [address] Social History Tobacco Use Types Packs/Day [...] Who lives with patient (i.e. spouse, children, longterm/snf)? Spouse Relevant travel history or future plans: [...] Collins MD [facility] GASTROENTEROLOGY DEPT [place], [place] [address] (Wo rk) 09/05/2022 Appointment Cardiology Tirnity Reid MD [facility] CARDIOLOGY [place], [place] [address] (Wo rk) 09/05/2022 Office Visit Cardiology Trinity Reid MD [facility] CARDIOLOGY [place], [place] [address] (Wo rk) documented as of this encounter Visit Diagnoses Not on filedocumented in this encounter Care Teams Cardiac Cath Lab Manager Relationship Specialty Start Date End Date Bobby Das MD PCP - General 10/02/[address] [place] [address] [place] [phone] documented as of this encounter
--- OUTSIDE RECORDS SUMMARY | 2022-07-17 10:39 | XMS_ITS | Encounter Summary ---
:1940 Author Organization [facility] [place] [address] Care Team Providers Name Role Phone Bobby Das MD Primary Care Provider Encounter Details Date Type Department Care Team Description 08/06/2020 Ancillary Procedure Radiology at [facility] Amy Grimaldo [address] [place] [address] [address]AY [phone] NEUROSURGERY-N Jovanny [place], [place] [address] Social History Tobacco Use Types [...] MD [facility] GASTROENTEROLOGY DEPT [place], [place] [address] (Wo rk) 09/05/2022 Appointment Cardiology Trinity Reid MD [facility] CARDIOLOGY [place], [place] [address] (Wo rk) 09/05/2022 Office Visit Cardiology Trinity Reid MD [facility] CARDIOLOGY [place], [place] [address] (Wo rk) documented as of [...] Organization Address City/State/ZIP Code Phon e Number [place], [place] documented in this encounter Visit Diagnoses Not on filedocumented in this encounter Care Teams Berry Grower Relationship Specialty Start Date End Date Bobby Das MD PCP - General 10/02/[address] [place] [address] [place] [address] documented as of this encounter
--- OUTSIDE RECORDS SUMMARY | 2022-07-17 10:39 | XMS_ITS | Encounter Summary ---
:1940 Author Organization [facility] Address [facility] [place] [address] Care Team Providers Name Role Phone Bobby Das MD Primary Care Provider Reason for Visit Reason Onset Date Comments Other 07/19/2011 Encounter Details Date Type Department Care Team Description 07/19/2011 Telephone Cardiology at [facility] Chet Nicole MD [facility] [place] [address] CARDIOLOGY DEPT. [phone] [place], [place] [address] (Wo rk) Social History Tobacco [...] Collins MD [facility] GASTROENTEROLOGY DEPT [place], [place] [address] (Wo rk) 09/05/2022 Appointment Cardiology Trinity Reid MD [facility] CARDIOLOGY [place], [place] [address] (Wo rk) 09/05/2022 Office Visit Cardiology Trinity Reid MD [facility] ER CARDIOLOGY [place], [place] [address] (Wo rk) documented as of this encounter Visit Diagnoses Not on filedocumented in this encounter Care Teams Slip Cover Cutter Relationship Specialty Start Date End Date Bobby Das MD PCP - General 10/02/[address] [place] [address] [place] [phone] documented as of this encounter
--- OUTSIDE RECORDS SUMMARY | 2022-07-17 10:39 | XMS_ITS | Encounter Summary ---
:1940 Author Organization [facility] Address [facility] [address] [place] [address] Care Team Providers Name Role Phone Bobby Das MD Primary Care Provider Reason for Visit Reason Comments Shortness of Breath Encounter Details Date Type Department Care Team Description 06/28/2011 Office Visit Cardiology at [facility] Chet Nicole SOB (shortness of breath) (P rimary Dx); [facility] GIB (gastrointestinal bleeding); Drive [facility] MVP (mitral valve prolapse) [place] [address] CARDIOLOGY DEPT. [phone] [place], [place] [address] Social History Tobacco Use Types [...] Giordano MD - 06/28/2011 4:15 PM EDT [facility] Cholesterol and Triglycerides Tests: About These [...] 60 mg/dl is considered ideal. ?? Total twbbagswihn-vn-WMU ratio: A ratio of 5:1 or lower is recommended. ?? LDL cholesterol: Between 100-129 mg/dL is recommended. Lower than 100 mg/dL is considered ideal. ?? VLDL cholesterol: 30 mg/dL or less is recommended. ?? Triglycerides: Lower than 150 mg/dL is recommended. Where can you learn more? Visit our health information library at [email or web address]. You can also view health information on [employer], your personal patient account. Log in or sign up today. Enter V788 in the search box to learn more about Cholesterol and Triglycerides Tests: About These Tests. ?? [id number] [employer]. Care instructions adapted under license by [facility]. This care instruction is for use with your licensed healthcare professional. If you have questionsabout a medical condition or this instruction, always ask your healthcare professional. [employer] disclaims any warranty or liability for your [...] valve prolapse) s/p repair Surgery done at [facility] in 2000 ??? Hypertriglyceridemia ??? Adhesive capsulitis of L shoulder ??? Alcohol use Medications: Mesa-3 Fatty Acids-Vitamin E (FISH OIL) 1,000 mg [...] Team Description 08/08/2022 Office Visit Gastroenterology Negra Collnis MD [facility] GASTROENTEROLOGY DEPT [place], [place] [address] (Wo rk) 09/05/2022 Appointment Cardiology Trinity Reid MD [facility] CARDIOLOGY [place], [place] [address] (Wo rk) 09/05/2022 Office Visit Cardiology Trinity Reid MD [facility] CARDIOLOGY [place], [place] [address] (Wo rk) documented as of this encounter Procedures Procedure Name Priority Date/Time Associated Diagnosis Comme nts EKG 12-LEAD Routine 06/28/2011 2:59 PM SOB (shortness of Resu lts for this EDT breath) procedure are i n the results section . documented in this encounter Results EKG 12 Lead (06/28/2011 2:59 PM EDT) [facility] gist Method Time Signature Ventricular rate 70 BPM MUSE SYSTEM Atrial Rate 70 BPM MUSE SYSTEM P-R Interval 182 ms MUSE SYSTEM QRS Duration 106 ms MUSE SYSTEM Q-T Interval 406 ms MUSE SYSTEM QTC Calculated 438 ms MUSE SYSTEM (Bezet) Calculated P [place] 60 degrees MUSE SYSTEM Calculated R [place] -51 degrees MUSE SYSTEM Calculated T [place] 32 degrees MUSE SYSTEM INTERPRETATION Normal sinus [...] disorders documented in this encounter Care Teams Italian Tutor Relationship Specialty Start Date End Date Bobby Das MD PCP - General 10/02/[address] [place] [address] [place] [address] documented as of this encounter
--- OUTSIDE RECORDS SUMMARY | 2022-07-17 10:44 | XMS_ITS | Encounter Summary ---
:1940 Author Organization [facility] Address [address] [place] [address] Care Team Providers Name Role Phone Bobby Das MD Primary Care Provider Encounter Details Date Type Department Care Team Description 07/11/2019 Hospital Encounter [facility] Aries Gutierrez Radiation Oncology - III, [facility] 111 [facility] [address] [place] [address] Pavilion, [place] [phone] (Wo rk) Social History Tobacco Use Types [...] on filedocumented in this encounter Care Teams Cell Stripper Final Relationship Specialty Start Date End Date Bobby Das MD PCP - General 07/06/[address] [place] [address] ,[address] [place] [address] documented as of this encounter
--- OUTSIDE RECORDS SUMMARY | 2022-07-17 10:44 | XMS_ITS | Encounter Summary ---
:1940 Author Organization [facility] Address [address] [place] [address] Care Team Providers Name Role Phone Bobby Das MD Primary Care Provider Encounter Details Date Type Department Care Team Description 08/03/2020 Lab Requisition [facility] Outr Resulting Lab, Pathology & Laboratory Provider [facility] [address] [place], [place] [id number] Social History Tobacco Use Types Packs/Day Years [...] (08/03/2020 12:22 EDT) COVID-19 rt-PCR NEGATIVE Negative [facility] Result Comment: LABORATORY 2019-novel [...] Address City/State/ZIP Code Phon e Number [facility] [place], [place] COVID-19 TESTING (08/03/2020 12:22 EDT) Pathologist [facility] [place] COVID-19 rt-PCR NEGATIVE Negative [facility] [...] Emergency Use Authorization. Performing Lab [facility] LABORATORY SERVICES Specimen Swab Performing Organization Address City/State/ZIP Code Phon e Number [facility] [address] [place] [address] SERVICES [facility] [place], [place] documented in this encounter Visit Diagnoses Not on filedocumented in this encounter Care Teams Workers Compensation Claims Analyst Relationship Specialty Start Date End Date Bobby Das MD PCP - General 07/06/[address] [place] [address] ,[address] [place] [address] documented as of this encounter
--- OUTSIDE RECORDS SUMMARY | 2022-07-17 10:44 | XMS_ITS | Clinical Summary ---
:[address] [facility] Address [address] [place] [address] Care Team Providers Name Role Phone Bobby [...] Noted Date Malignant neoplasm of prostate ([facility]) 11/19/2017 Cancer Staging: Clinical stage from 11/19: Stage IIB (cT2a, cN0, cM0, PSA: 12.8, Grade Group: 2) - Signed by Delores Gutierrez III, MD on 11/19/2017 Medical History Medical History Date Comments Cancer ([facility]) (HCC) Hyperlipidemia Family History Medical History [...] T ype Group Dates MEDICARE MEDICARE A/B [id number] 2007-Pre [address] edicare GL sent [id number] [address] [facility] [id number] 2021-Pre [address] Commercial GL [facility] sent [place], [place]UR[place] [id number] COMPANY Koko Zamora Personal/Family Self 1940 [address] (Home) [place] [address] Koko Zamora Personal/Family Self 1940 [address] [address] Care Teams Sales Incentive Analyst Relationship Specialty Start Date End Date Bobby Das MD PCP - General 07/06/[address] [place] [address],[address] [place] [phone]
--- OUTSIDE RECORDS SUMMARY | 2022-07-17 10:44 | XMS_ITS | Encounter Summary ---
:1940 Author Organization [facility] Address [address] [place] [address] Care Team Providers Name Role Phone Bobby Das MD Primary Care Provider Encounter Details Date Type Department Care Team Description 07/16/2019 Phlebotomy Only [facility] Museum Host/Hostess, Eboni barbosa neoplasm - [facility] Outpatient of prostate 111 [facility] ([facility]) (Primary [place], [place] Dx) [address] Social History Tobacco Use [...] DIAGNOSTIC of prostate procedure are i n ([facility]) the results section. documented in this encounter Results PSA TOTAL, DIAGNOSTIC (07/16/2019 9:30 EDT) PSA 0.1 0 - 6.5 ng/ml [facility] Comment: LABORATORY SERVICES Serum PSA concentration should not be interpreted as absolute evidence for the presence or absence of malignant disease. Assayed utilizing Siemens (Wavii) chemiluminescent technology. ??Values obtained by using different assay methods cannot be used interchangeably. Specimen Blood specimen (specimen) - Blood Performing Organization Address City/State/ZIP Code Phon e Number [facility] [address] [place] [address] SERVICES documented in this encounter Visit Diagnoses Diagnosis Malignant neoplasm of prostate ([facility]) (HCC) - Primary Malignant neoplasm of prostate documented in this encounter Orders Lab Orders Without Results Count Last Ordered Date st Ordered Date PSA TOTAL, DIAGNOSTIC 1 07/16/2019 documented in this encounter Care Teams Vendor Relationship Manager Relationship Specialty Start Date End Date Bobby Das MD PCP - General 07/06/[address] [place] [address],[address] [place] [address] documented as of this encounter
--- OUTSIDE RECORDS SUMMARY | 2022-07-17 10:44 | XMS_ITS | Encounter Summary ---
:1940 Author Organization [facility] Address [address] [place] [address] Care Team Providers Name Role Phone Bobby Das MD Primary Care Provider Encounter Details Date Type Department Care Team Description 07/16/2019 Hospital Encounter [facility] Gutierrez [facility] III, MD [address] [place] [address] [facility] Level [address] [place] [address] (Wo rk) Social History Tobacco [...] on filedocumented in this encounter Care Teams Microsoft Crm Developer Relationship Specialty Start Date End Date Bobby Das MD PCP - General 07/06/[address] [place] [address] ,[address] [place] [address] documented as of this encounter
--- OUTSIDE RECORDS SUMMARY | 2022-07-17 10:44 | XMS_ITS | Encounter Summary ---
:1940 Author Organization [facility] Address [address] [place] [address] Care Team Providers Name Role Phone Bobby Das MD Primary Care Provider Reason for Visit Reason Comments Prostate Cancer Follow up Encounter Details Date Type Department Care Team Description 07/16/2019 Office Visit [facility] Aries Gutierrez neoplasm of Radiation Oncology - Felix EAST MD prostate ([facility]) Main [address] (Primary Dx) [address] [place] [phone] [place] [address], [place] [phone] [facility] [address] [place] [address] (Wo rk) Social History Tobacco [...] DATE OF SERVICE: 07/16/2019 DIAGNOSIS AND STAGE: [id number], PSA 12.8 Winifred score 3+4 = 7 [...] this point. He is being evaluated at [facility] next week for possible tuboplasty. With [...] prepared with voice recognition software. Please excuse paramedic supervisor errors. documented in this encounter Plan of [...] ORAL) added in this encounter Care Teams Software Intern Relationship Specialty Start Date End Date Bobby Das MD PCP - General 07/06/[address] [place] [address],[address] [place] [address] documented as of this encounter
--- OUTSIDE RECORDS SUMMARY | 2022-07-17 10:44 | XMS_ITS | Encounter Summary ---
:1940 Author Organization Address [address] [place] [address] Care Team Providers Name Role Phone Bobby Das MD Primary Care Provider Encounter Details Date Type Department Care Team Description 08/28/2020 Lab Requisition [facility] Outr Resulting Lab, Pathology & Laboratory Provider [facility] [address] [place], [place] [id number] Social History Tobacco Use Types Packs/Day Years [...] (08/28/2020 9:58 EDT) COVID-19 rt-PCR NEGATIVE Negative [facility] Result Comment: LABORATORY 2019-novel [...] Organization Address City/State/ZIP Code Phon e Number [facility] [place], [place] COVID-19 TESTING (08/28/2020 9:58 EDT) Pathologist [facility] COVID-19 rt-PCR NEGATIVE Negative [facility] Result Comment: LABORATORY 2019-novel Coronavirus (2019 [...] Administration's Emergency Use Authorization. Performing Lab [facility] LABORATORY SERVICES Specimen Swab Performing Organization Address City/State/ZIP Code Phon e Number [facility] [address] [place] [address] SERVICES [facility] [place], [place] documented in this encounter Visit Diagnoses Not on filedocumented in this encounter Care Teams Extractor Operator Helper Relationship Specialty Start Date End Date Bobby Das MD PCP - General 07/06/[address] [place] [address] ,[address] [place] [address] documented as of this encounter
--- OUTSIDE RECORDS SUMMARY | 2022-07-17 10:44 | XMS_ITS | Encounter Summary ---
:1940 Author Organization [facility] Address [address] [place] [address] Care Team Providers Name Role Phone Bobby Das MD Primary Care Provider Encounter Details Date Type Department Care Team Description 10/03/2021 Lab Requisition [facility] Bobby Das Enc ounter for other Pathology & MD general examination Laboratory Medicine [address] [place] [address],[address] [facility] 1 [place], [place] [address] [place] [address] Social History Tobacco Use Types Packs/Day Years [...] SERVICES Toni Giordano 10/05/2021 8:15 Performing Lab [facility] HOSPITAL LAB [facility] LABORATORY SERVICES Scanned Images [facility]OR[facility] SERVICES Specimen Tissue - Skin (tissue) specimen (specime n) Performing Organization Address City/State/ZIP Code Phon e Number [facility] [address] [place] [address] SERVICES documented in this encounter Visit Diagnoses Diagnosis Encounter for other general examination documented in this encounter Care Teams Image Processing Engineer Relationship Specialty Start Date End Date Bobby Das MD PCP - General 07/06/[address] [place] [address] ,[address] [place] [address] documented as of this encounter
--- OUTSIDE RECORDS SUMMARY | 2022-07-17 10:44 | XMS_ITS | Encounter Summary ---
:[address] [facility] Address [address] [place] [address] Care Team Providers Name Role Phone Bobby Das MD Primary Care Provider Encounter Details Date Type Department Care Team Description 04/12/2021 Lab Requisition [facility] Outr Resulting Lab, Pathology & Laboratory Provider [facility] [address] [place], [place] [address] Social History Tobacco Use Types Packs/Day Years [...] nature Testosterone 269 229 - 902 ng/dL [facility] LABORATORY SERVICES Specimen Blood - Venous blood (substance) Narrative [facility] LABOR[facility]ORY SERVICES - 04/12/2021 22:19 EDT The results of this assay can be falsley elevated due to the consumption of Biotin. Performing Organization Address City/State/ZIP Code Phon e Number [facility] [address] [place] [address] SERVICES documented in this encounter Visit Diagnoses Not on filedocumented in this encounter Care Teams Pressure Test Operator Relationship Specialty Start Date End Date Bobby Das MD PCP - General 07/06/[address] [place] [address] ,[address] [place] [address] documented as of this encounter
--- OUTSIDE RECORDS SUMMARY | 2022-07-17 10:45 | XMS_ITS | Encounter Summary ---
:1940 Author Organization [facility] Address [address] [place] [address] Care Team Providers Name Role Phone Bobby Das MD Primary Care Provider Reason for Visit Reason Comments Follow-up Injection Encounter Details Date Type Department Care Team Description 01/05/2018 Office Visit [facility] Erlin José MD Malignant neoplasm of Urology - Main [address] [place] [address] ([facility]) (Primary [address] [facility], [facility]) [place] [address] Pavilion, [place] [address] (Wo rk) Social History Tobacco [...] Progress Notes Chino José MD - 01/05/2018 8684 EST Chief Complaint: Chief Complaint Patient presents with ??? Follow-up Injection HPI: Koko is a 77 y.o. male with prostate cancer. Grant presented with an elevated PSA to 12.8 shaw palpable nodule and on biopsy had 2 out of 12 cores positive for Winifred 3+3 and Herald 3+4 prostate cancer. T2a. He previously had [...] Dr. Gutierrez this week See me at [facility] after radiation therapy is complete with [...] mg documented in this encounter Care Teams Waiter/Waitress Tourist Class Relationship Specialty Start Date End Date Bobby Das MD PCP - General 07/06/[address] [place] [address],[address] [place] [address] documented as of this encounter
--- OUTSIDE RECORDS SUMMARY | 2022-07-17 10:45 | XMS_ITS | Encounter Summary ---
:1940 Author Organization [facility] Address [address] [place] [address] Care Team Providers Name Role Phone Bobby Das MD Primary Care Provider Reason for Visit Reason Comments Prostate Cancer Encounter Details Date Type Department Care Team Description 02/17/2018 Radiation Therapy [facility] Aries Gutierrez alignant neoplasm Visit Radiation Oncology Felix EAST MD of [facility] - [address] ([facility]) (Primary [address] [facility] Dx) [facility], [address] [place] [address] [address] [place] [address] Social History Tobacco Use Types [...] was Malignant neoplasm of prostate ([facility]). Assessment: Assessment Completed By: Felix Gutierrez MD (02/17/18 7567) Radiation Therapy: Cumulative RT Dose 3600 cGy [...] Changes: None Sj Gutierrez MD Radiation Oncology [phone] (office) [phone] (pager) documented in this encounter Plan of Treatment Not on filedocumented as of this encounter Visit Diagnoses Diagnosis Malignant neoplasm of prostate (HCC-CMS) (HCC) - Primary Malignant neoplasm of prostate documented in this encounter Care Teams Handbag Frames Inspector Relationship Specialty Start Date End Date Bobby Das MD PCP - General 07/06/[address] [place] [address] ,[address] [place] [address] documented as of this encounter
--- OUTSIDE RECORDS SUMMARY | 2022-07-17 10:45 | XMS_ITS | Encounter Summary ---
:1940 Author Organization [facility] Address [address] [place] [address] Care Team Providers Name Role Phone Bobby Das MD Primary Care Provider Reason for Visit Reason Onset Date Comments Follow-up 01/12/2018 Encounter Details Date Type Department Care Team Description 01/12/2018 Telephone [facility] Radiation De Law RN Follow-up Oncology - [address] [address] Social History Tobacco Use Types Packs/Day Years Used Date Current Every Day Smoker Smokeless Tobacco: Never Used Sex Assigned at Date Recorded Not on file documented as of this encounter Miscellaneous Notes Telephone Encounter - Isela Law RN - 01/12/2018 2479 EST This is a planned post procedure [...] on filedocumented in this encounter Care Teams Bin Cleaner Relationship Specialty Start Date End Date Bobby Das MD PCP - General 07/06/[address] [place] [address],[address] [place] [address] documented as of this encounter
--- OUTSIDE RECORDS SUMMARY | 2022-07-17 10:45 | XMS_ITS | Encounter Summary ---
:1940 Author Organization [facility] Address [address] [place] [address] Care Team Providers Name Role Phone Bobby Das MD Primary Care Provider Encounter Details Date Type Department Care Team Description 01/16/2018 Documentation Visit [facility] Santhosh Cosby Radiation Oncology - Main [address] [phone] Social History Tobacco Use Types Packs/Day Years Used Date Current Every Day Smoker Smokeless Tobacco: Never Used Sex Assigned at Date Recorded Not on file documented as of this encounter Progress Notes Santhosh Cosby - 01/16/2018 5269 EST SOCIAL WORK ASSESSMENT: Amount of Distress: 0 Practical Problems: None Family Problems: None Emotional Problems: None Physical Problems: None Spiritual/Taoist Concerns: No Other Problems: Social Work Assessment: [...] Prostate Cancer Living Arrangements: Pt lives in [place], [place] with his . They operate a [...] social work as needed. ASH Antonio phone [phone] pager [phone] documented in this encounter Plan of Treatment Not on filedocumented as of this encounter Visit Diagnoses Not on filedocumented in this encounter Care Teams Infirmary Attendant Relationship Specialty Start Date End Date Bobby Das MD PCP - General 07/06/[address] [place] [address],[address] [place] [phone] documented as of this encounter
--- OUTSIDE RECORDS SUMMARY | 2022-07-17 10:45 | XMS_ITS | Encounter Summary ---
:1940 Author Organization [facility] Address [address] [place] [address] Care Team Providers Name Role Phone Bobby Das MD Primary Care Provider Encounter Details Date Type Department Care Team Description 02/25/2018 Documentation Visit [facility] Adama Vargas RN Radiation Oncology - [address] [place] [address] [place] [address] Social History Tobacco Use Types Packs/Day Years Used Date Current Every Day Smoker Smokeless Tobacco: Never Used Sex Assigned at Date Recorded Not on file documented as of this encounter Progress Notes Lynn Vargas RN - 02/25/2018 2183 EDT Koko Zamora requested to be seen [...] filedocumented in this encounter Care Teams Machine Operator Slitter Technician Relationship Specialty Start Date End Date Bobby Das MD PCP - General 07/06/[address] [place] [address],[address] [place] [address] documented as of this encounter
--- OUTSIDE RECORDS SUMMARY | 2022-07-17 10:45 | XMS_ITS | Encounter Summary ---
:1940 Author Organization [facility] Address [address] [place] [address] Care Team Providers Name Role Phone Bobby Das MD Primary Care Provider Encounter Details Date Type Department Care Team Description 11/20/2017 Results Only Imaging [facility]- Unknown, [facility] ProviderMD [phone] Social History Tobacco Use Types Packs/Day Years [...] filedocumented in this encounter Care Teams Retail Analytics Manager Relationship Specialty Start Date End Date Bobby Das MD PCP - General 07/06/[address] [place] [address],[address] [place] [address] documented as of this encounter
--- OUTSIDE RECORDS SUMMARY | 2022-07-17 10:45 | XMS_ITS | Encounter Summary ---
:1940 Author Organization [facility] Address [address] [place] [address] Care Team Providers Name Role Phone Bobby Das MD Primary Care Provider Reason for Visit Reason Onset Date Comments Prostate Cancer 11/20/2017 Encounter Details Date Type Department Care Team Description 11/20/2017 Orders Only [facility] Center Aries Gutierrez Radiation Oncology - [facility], [address] [address] [address], [place], [place] [address] (Wo rk) Social History Tobacco Use Types [...] on filedocumented in this encounter Care Teams Input Output Clerk Relationship Specialty Start Date End Date Bobby Das MD PCP - General 07/06/[address] [place] [address] ,[address] [place] [address] documented as of this encounter
--- OUTSIDE RECORDS SUMMARY | 2022-07-17 10:45 | XMS_ITS | Encounter Summary ---
:1940 Author Organization [facility] Address [address] [place] [address] Care Team Providers Name Role Phone Bobby Das MD Primary Care Provider Encounter Details Date Type Department Care Team Description 10/29/2017 Hospital Encounter [facility]- Devi Unknown, Provider, [facility] [address] [facility] [phone] [place] [address] (Work) [phone] Social History Tobacco Use Types Packs/Day Years Used Date Never Assessed Sex Assigned at Date Recorded Not on file documented as of this encounter Discharge Disposition Disposition Code Departure Means Destination Home or Self Snf documented in this encounter Plan of Treatment Not on filedocumented as of this encounter Visit Diagnoses Not on filedocumented in this encounter Care Teams Producer Relationship Specialty Start Date End Date Bobby Das MD PCP - General 07/06/[address] [place] [address],[address] [place] [address] documented as of this encounter
--- OUTSIDE RECORDS SUMMARY | 2022-07-17 10:45 | XMS_ITS | Encounter Summary ---
:1940 Author Organization [facility] Address [address] [place] [address] Care Team Providers Name Role Phone Bobby Das MD Primary Care Provider Reason for Visit Reason Onset Date Comments Appointment Related 03/19/2018 Encounter Details Date Type Department Care Team Description 03/19/2018 Telephone [facility] Dominique Mirza, Sloane ointment Related Urology - James campo RN [address] [place] [address] Social History Tobacco Use Types [...] there. ill plan to see him at [facility]. Tc to pt to advise he contact [facility] and be sure appt has been [...] so, can the pt be seen at [facility] as originally suggested in 's 01/05 progress note. Will call patient to let him know if he needs to f/u with and if so, can he be seen at [facility]. documented in this encounter Plan of Treatment Not on filedocumented as of this encounter Visit Diagnoses Not on filedocumented in this encounter Care Teams Market Intelligence Consultant Relationship Specialty Start Date End Date Bobby Das MD PCP - General 07/06/[address] [place] [address],[address] [place] [address] documented as of this encounter
--- OUTSIDE RECORDS SUMMARY | 2022-07-17 10:45 | XMS_ITS | Encounter Summary ---
:1940 Author Organization [facility] Address [address] [place] [address] Care Team Providers Name Role Phone Bobby Das MD Primary Care Provider Reason for Visit Reason Onset Date Comments Cancer 02/16/2018 Encounter Details Date Type Department Care Team Description 02/16/2018 Orders Only [facility] Isela Law Maligna nt neoplasm of prostate (HCC-CMS) (Primary Dx); Radiation Oncology - RN Andvamshi n deprivation therapy [address] [address] Social History Tobacco Use Types Packs/Day Years [...] g documented in this encounter Care Teams Advertisement Compositor Relationship Specialty Start Date End Date Bobby Das MD PCP - General 07/06/[address] [place] [address] ,[address] [place] [address] documented as of this encounter
--- OUTSIDE RECORDS SUMMARY | 2022-07-17 10:45 | XMS_ITS | Encounter Summary ---
:1940 Author Organization [facility] Address [address] [place] [address] Care Team Providers Name Role Phone Bobby Das MD Primary Care Provider Encounter Details Date Type Department Care Team Description 03/04/2018 Documentation Visit [facility] Cancer Center Aries Gutierrez Radiation Oncology - III, [address] [address] [address], [place] [phone] (Wo rk) Social History Tobacco Use Types Packs/Day Years Used Date Current Every Day Smoker Smokeless Tobacco: Never Used Sex Assigned at Date Recorded Not on file documented as of this encounter Miscellaneous Notes Treatment Summary - Delores Gutierrez III, MD - 03/04/2018 1339 EDT Images from the original note were not included. 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 He [...] Dr. José. Sj Gutierrez MD Radiation Oncology [phone] (office) [phone] (pager) This note has been prepared with voice recognition software. Please excuse night time nanny errors. documented in this encounter Plan of Treatment Not on filedocumented as of this encounter Visit Diagnoses Not on filedocumented in this encounter Care Teams Shuttlecock Assembler Relationship Specialty Start Date End Date Bobby Das MD PCP - General 07/06/[address] [place] [address],[address] [place] [address] documented as of this encounter
--- OUTSIDE RECORDS SUMMARY | 2022-07-17 10:45 | XMS_ITS | Encounter Summary ---
:1940 Author Organization [facility] Address [address] [place] [address] Care Team Providers Name Role Phone Unknown, Provider Primary Care Provider Encounter Details Date Type Department Care Team Description 07/03/2015 Hospital Encounter [facility]- Devi Unknown, Provider, [facility] [phone] [place] [address] (Work) [phone] Social History Tobacco Use Types Packs/Day Years Used Date Never Assessed Sex Assigned at Date Recorded Not on file documented as of this encounter Discharge Disposition Disposition Code Departure Means Destination Home or Self Prison documented in this encounter Plan of Treatment Not on filedocumented as of this encounter Visit Diagnoses Not on filedocumented in this encounter Care Teams Jig Operator Relationship Specialty Start Date End Date Unknown, Provider, PCP - General 07/03/15 07/05/15 documented as of this encounter
--- OUTSIDE RECORDS SUMMARY | 2022-07-17 10:45 | XMS_ITS | Encounter Summary ---
:1940 Author Organization [facility] Address [address] [place] [address] Care Team Providers Name Role Phone Bobby Das MD Primary Care Provider Reason for Visit Reason Comments Cancer Encounter Details Date Type Department Care Team Description 02/27/2018 Radiation Therapy [facility] Letty Gaitan RN Malignant neoplasm Visit Radiation Oncology [address] [place] [address] ([facility]) (Primary [address] [place], [place]x) [place] [address] Social History Tobacco Use Types Packs/Day Years [...] encounter diagnosis was Malignant neoplasm of prostate ([facility]). Assessment: Assessment Completed By: Janae Gaitan [...] prostate documented in this encounter Care Teams Drawstring Knotter Relationship Specialty Start Date End Date Bobby Das MD PCP - General 07/06/[address] [place] [address] ,[address] [place] [address] documented as of this encounter
--- OUTSIDE RECORDS SUMMARY | 2022-07-17 10:45 | XMS_ITS | Encounter Summary ---
:1940 Author Organization [facility] Address [address] [place] [address] Care Team Providers Name Role Phone Bobby Das MD Primary Care Provider Encounter Details Date Type Department Care Team Description 01/08/2018 Procedure visit [facility] Cancer Center Aries Gutierrez Radiation Oncology - IIIMD [address] [address] [address], [place] [phone] (Wo rk) Social History Tobacco Use Types [...] prostate gland. DATE OF SERVICE: 01/08/2018 INDICATIONS: [id number], PSA 12.8 Winifred score 3+4 = 7 [...] documented as of this encounter Care Teams Poultry Picking Machine Tender Relationship Specialty Start Date End Date Bobby Das MD PCP - General 07/06/[address] [place] [address] ,[address] [place] [address] documented as of this encounter
--- OUTSIDE RECORDS SUMMARY | 2022-07-17 10:45 | XMS_ITS | Encounter Summary ---
:1940 Author Organization [facility] Address [address] [place] [address] Care Team Providers Name Role Phone Bobby Das MD Primary Care Provider Reason for Visit Reason Onset Date Comments Diagnostic Imaging Report 11/25/2017 Encounter Details Date Type Department Care Team Description 11/25/2017 Telephone [facility] Lynn Vargas RN Diagnostic Imaging Radiation Oncology - [address] [place] [address] [place], [place] [phone] [place] [address] Social History Tobacco Use Types Packs/Day Years [...] on filedocumented in this encounter Care Teams Car Wash Manager Relationship Specialty Start Date End Date Bobby Das MD PCP - General 07/06/[address] [place] [address] ,[address] [place] [address] documented as of this encounter
--- OUTSIDE RECORDS SUMMARY | 2022-07-17 10:45 | XMS_ITS | Encounter Summary ---
:1940 Author Organization [facility] Address [address] [place] [address] Care Team Providers Name Role Phone Bobby Das MD Primary Care Provider Reason for Visit Reason Comments Cancer Encounter Details Date Type Department Care Team Description 02/13/2018 Radiation Therapy [facility] Isela Law Ma lignant neoplasm of Visit Radiation Oncology - RN prostat e ([facility]) Main [place] (Primary Dx) [address] [place] [address] Social History Tobacco Use Types Packs/Day [...] encounter diagnosis was Malignant neoplasm of prostate ([facility]). Assessment: Assessment Completed By: Isela [...] prostate documented in this encounter Care Teams Staff Attorney Relationship Specialty Start Date End Date Bobby Das MD PCP - General 07/06/[address] [place] [address] ,[address] [place] [address] documented as of this encounter
--- OUTSIDE RECORDS SUMMARY | 2022-07-17 10:45 | XMS_ITS | Encounter Summary ---
:1940 Author Organization Health system Address [address] [place] [address] Care Team Providers Name Role Phone Bobby Das MD Primary Care Provider Reason for Visit Reason Comments Prostate Cancer Encounter Details Date Type Department Care Team Description 02/23/2018 Radiation Therapy [facility] Aries Gutierrez alignant neoplasm Visit Radiation Oncology Felix EAST MD of [facility] - [address] ([facility]) (Primary [address] [place] [address] Dx) [facility], [address] [place] [address] [address] [place] [address] Social History Tobacco Use Types [...] encounter diagnosis was Malignant neoplasm of prostate ([facility]). Assessment: Assessment Completed By: Felix Gutierrez MD (02/23/18 4991) Radiation Therapy: Cumulative RT Dose 4800 cGy [...] Dr. King Sj Gutierrez MD Radiation Oncology [phone] (office) [phone] (pager) documented in this encounter Plan of Treatment Not on filedocumented as of this encounter Visit Diagnoses Diagnosis Malignant neoplasm of prostate (HCC-CMS) (HCC) - Primary Malignant neoplasm of prostate documented in this encounter Care Teams Control Director Relationship Specialty Start Date End Date Bobby Das MD PCP - General 07/06/[address] [place] [address] ,[address] [place] [address] documented as of this encounter
--- OUTSIDE RECORDS SUMMARY | 2022-07-17 10:45 | XMS_ITS | Encounter Summary ---
:1940 Author Organization [facility] Address [address] [place] [address] Care Team Providers Name Role Phone Bobby Das MD Primary Care Provider Reason for Visit Reason Comments Cancer Encounter Details Date Type Department Care Team Description 02/06/2018 Radiation Therapy [facility] Lynn Vargas RN Malignant neoplasm Visit Radiation Oncology [address] [facility] ([facility]) ([facility]) [address] [place] [address] (Primary Dx) [place] [phone] Social History Tobacco Use Types Packs/Day Years [...] encounter diagnosis was Malignant neoplasm of prostate ([facility]). Assessment: Assessment Completed By: Lynn Vargas RN [...] Visit Diagnoses Diagnosis Malignant neoplasm of prostate ([facility]) (HCC) - Primary Malignant neoplasm of prostate documented in this encounter Care Teams Face Burler Relationship Specialty Start Date End Date Bobby Das MD PCP - General 07/06/[address] [address],[address] [place] [address] documented as of this encounter
--- OUTSIDE RECORDS SUMMARY | 2022-07-17 10:45 | XMS_ITS | Encounter Summary ---
:[address] [facility] Address [address] [place] [address] Care Team Providers Name Role Phone Bobby Das MD Primary Care Provider Encounter Details Date Type Department Care Team Description 01/08/[address] En[address] [facility] Aries Gutierrez Radiation Oncology - III, [facility] [address] [address] [address], [place] [phone] (Wo rk) Social History Tobacco Use Types [...] on filedocumented in this encounter Care Teams Back End Architect Relationship Specialty Start Date End Date Bobby Das MD PCP - General 07/06/[address] [place] [address],[address] [place] [address] documented as of this encounter
--- OUTSIDE RECORDS SUMMARY | 2022-07-17 10:45 | XMS_ITS | Encounter Summary ---
:1940 Author Organization [facility] Address [address] [place] [address] Care Team Providers Name Role Phone Bobby Das MD Primary Care Provider Reason for Visit Reason Onset Date Comments Cancer 03/18/2018 Encounter Details Date Type Department Care Team Description 03/18/2018 Telephone [facility] Cancer Center Aries Gutierrez II, Cancer Radiation Oncology - [address] [address] [address], [place] [address] (Wo rk) Social History Tobacco Use Types Packs/Day Years Used Date Current Every Day Smoker Smokeless Tobacco: Never Used Sex Assigned at Date Recorded Not on file documented as of this encounter Miscellaneous Notes Telephone Encounter - Delores Gutierrez III, MD - 03/18/2018 9351 EDT RADIATION ONCOLOGY Mr. Zamora called the [...] this month. Sj Gutierrez MD Radiation Oncology [phone] (office) [phone] (pager) This note has been prepared with voice recognition software. Please excuse logistics solution manager errors. documented in this encounter Plan of Treatment Not on filedocumented as of this encounter Visit Diagnoses Not on filedocumented in this encounter Care Teams Machine Engraver Relationship Specialty Start Date End Date Bobby Das MD PCP - General 07/06/[address] [place] [address] ,[address] [place] [address] documented as of this encounter
--- OUTSIDE RECORDS SUMMARY | 2022-07-17 10:45 | XMS_ITS | Encounter Summary ---
:1940 Author Organization [facility] Address [address] [place] [address] Care Team Providers Name Role Phone Bobby Das MD Primary Care Provider Reason for Visit Reason Onset Date Comments Prostate Cancer 06/03/2018 Encounter Details Date Type Department Care Team Description 06/03/2018 Telephone [facility] Aries Gutierrez Cancer Radiation Oncology - III, [address] [address] [address], [place] [address] (Wo rk) Social History Tobacco Use Types Packs/Day Years Used Date Current Every Day Smoker Smokeless Tobacco: Never Used Sex Assigned at Date Recorded Not on file documented as of this encounter Miscellaneous Notes Telephone Encounter - Delores Gutierrez III, MD - 06/03/2018 1723 EDT RADIATION ONCOLOGY I spoke with Mr. Zamora by phone today. He tells me he is unable to make it to [place] for follow-up visits with me as he [...] office if he will be in the [place] area as I would be happyto move my schedule as needed to see him for follow-up. I did strongly encourage him to continue follow-up with Dr. José and asked him to call them to arrange an appointment. He canceled his next scheduled follow-up appointment with me. Sj Gutierrez MD Radiation Oncology [phone] (office) [phone] (pager) This note has been prepared with voice recognition software. Please excuse beater operator errors. documented in this encounter Plan of Treatment Not on filedocumented as of this encounter Visit Diagnoses Not on filedocumented in this encounter Care Teams Software Sales Manager Relationship Specialty Start Date End Date Bobby Das MD PCP - General 07/06/[address] [place] [address],[address] [place] [address] documented as of this encounter
--- OUTSIDE RECORDS SUMMARY | 2022-07-17 10:45 | XMS_ITS | Encounter Summary ---
:[address] [facility] Address [address] [place] [address] Care Team Providers Name Role Phone Bobby Das MD Primary Care Provider Reason for Visit Reason Onset Date Comments Prostate Cancer 11/20/2017 Encounter Details Date Type Department Care Team Description 11/20/2017 Telephone [facility] Aries Gutierrez Cancer Radiation Oncology - III, [address] [address] [address], [place] [address] (Wo rk) Social History Tobacco Use Types Packs/Day Years Used Date Current Every Day Smoker Smokeless Tobacco: Never Used Sex Assigned at Date Recorded Not on file documented as of this encounter Miscellaneous Notes Telephone Encounter - Delores Gutierrez III, MD - 11/20/2017 7735 EST RADIATION ONCOLOGY I spoke with Mr. Zamora by phone today. [facility] todayreveals no evidence of metastatic disease. He is eager to start therapy. I discussed his care with Dr. José. We will coordinate initiation of androgen deprivation as soon as practical. He will return for fiducial marker placement in approximately 6 weeks, anticipate we will start his treatment approximately 2 months after his first injection. Sj Gutierrez MD Radiation Oncology [phone] (office) [phone] (pager) This note has been prepared with voice recognition software. Please excuse marketing production specialist errors. documented in this encounter Plan of Treatment Not on filedocumented as of this encounter Visit Diagnoses Diagnosis Malignant neoplasm of prostate (HCC-CMS) (HCC) - Primary Malignant neoplasm of prostate documented in this encounter Care Teams Die Repairer Trimmer Dies Relationship Specialty Start Date End Date Bobby Das MD PCP - General 07/06/[address] [place] [address],[address] [place] [address] documented as of this encounter
--- OUTSIDE RECORDS SUMMARY | 2022-07-17 10:45 | XMS_ITS | Encounter Summary ---
:1940 Author Organization [facility] Address [address] [place] [address] Care Team Providers Name Role Phone Bobby Das MD Primary Care Provider Reason for Visit Reason Comments Other Encounter Details Date Type Department Care Team Description 03/04/2019 Refill [facility] Radiation Adelfo Gutierrez ld Felix III, Other Oncology - Main [facility] [address] [place] [id number] [place] [address] [facility] [address] [place], [place] [address] (Wo rk) Social History [...] documented as of this encounter Care Teams Mechanical Developer Prover Relationship Specialty Start Date End Date Bobby Das MD PCP - General 07/06/[address] [place] [address],[address] [place] [address] documented as of this encounter
--- OUTSIDE RECORDS SUMMARY | 2022-07-17 10:45 | XMS_ITS | Encounter Summary ---
:1940 Author Organization [facility] Address [address] [place] [address] Care Team Providers Name Role Phone Bobby Das MD Primary Care Provider Reason for Visit Reason Comments Prostate Cancer Encounter Details Date Type Department Care Team Description 02/10/2018 Radiation Therapy [facility] Aries Gutierrez alignant neoplasm Visit Radiation Oncology Felix EAST MD of [facility] - [address] ([facility]) (Primary 111 [facility] Dx) [facility], [address] [place] [address] [address] [place] [address] Social History Tobacco Use Types [...] encounter diagnosis was Malignant neoplasm of prostate ([facility]). Assessment: Assessment Completed By: Felix Gutierrez MD (02/10/18 7371) Radiation Therapy: Cumulative RT Dose 2400 cGy [...] Changes: None Sj Gutierrez MD Radiation Oncology [phone] (office) [phone] (pager) documented in this encounter Plan of Treatment Not on filedocumented as of this encounter Visit Diagnoses Diagnosis Malignant neoplasm of prostate (HCC-CMS) (HCC) - Primary Malignant neoplasm of prostate documented in this encounter Care Teams Disaster Recovery Specialist Relationship Specialty Start Date End Date Bobby Das MD PCP - General 07/06/[address] [place] [address] ,[address] [place] [address] documented as of this encounter
--- OUTSIDE RECORDS SUMMARY | 2022-07-17 10:45 | XMS_ITS | Encounter Summary ---
:1940 Author Organization [facility] Address [address] [place] [address] Care Team Providers Name Role Phone Bobby Das MD Primary Care Provider Reason for Visit Reason Comments Prostate Cancer Encounter Details Date Type Department Care Team Description 11/19/2017 Office Visit [facility] Aries Gutierrez neoplasm of Radiation Oncology - Felix EAST MD prostate ([facility]) Main [address] ([facility]) (Primary 111 [facility] Dx) [place], [place] [phone] [place] [address] [facility] [address] [place] [address] (Wo rk) Social History Tobacco [...] Dr. José. Primary Site, Histopathology and Stage: [id number], PSA 12.8 [place] score 3+4 = 7 adenocarcinoma of the [...] score 3+3 disease at the left base, Luzerne score 3+4 disease at the left apex, he had ANDREINA/pin in another core biopsy from the left apex. His pathology was reviewed here at [facility] which was confirmatory.A bone scan is [...] Social History: He is and lives in [facility]. He and his own and operate [...] bone scan which will be done at [facility] tomorrow. Once that result is available I [...] prepared with voice recognition software. Please excuse cath lab manager errors documented in this encounter Plan [...] daily. added in this encounter Care Teams Aircraft Cylinder Mechanic Relationship Specialty Start Date End Date Bobby Das MD PCP - General 07/06/[address] [place] [address] ,[address] [place] [address] documented as of this encounter
--- OUTSIDE RECORDS SUMMARY | 2022-07-17 10:45 | XMS_ITS | Encounter Summary ---
:1940 Author Organization [facility] Address [address] [place] [address] Care Team Providers Name Role Phone Bobby Das MD Primary Care Provider Reason for Visit Reason Onset Date Comments Medication Management 02/16/2018 Encounter Details Date Type Department Care Team Description 02/16/2018 Orders Only [facility] Radiation De Law life science teacher - [address] [id number] Social History Tobacco Use Types Packs/Day Years [...] on filedocumented in this encounter Care Teams Outplacement Consultant Relationship Specialty Start Date End Date Bobby Das MD PCP - General 07/06/[address] [place] [address],[address] [place] [address] documented as of this encounter
--- OUTSIDE RECORDS SUMMARY | 2022-07-17 10:45 | XMS_ITS | Encounter Summary ---
:1940 Author Organization [facility] Address [address] [place] [address] Care Team Providers Name Role Phone Bobby Das MD Primary Care Provider Reason for Visit Reason Comments Cancer Encounter Details Date Type Department Care Team Description 01/08/2018 Radiation Therapy [facility] Isela Law Ma lignant neoplasm of Visit Radiation Oncology - RN prostat e ([facility]) Main [place] ([facility]) (Primary [address]x) [place] [address] Social History Tobacco Use Types [...] Assessment Completed By: Isela Law RN (01/08/18 1324) Patient Education Topic: Method: Handout and Verbal [...] and get free services/meds from afar. Referrals church worker: Yes (Shadi will meet with Santhosh Cosby MSW next week to review the DT and supportive services. ) Services: Kylee Hurt: No Other: Subjective Note: General: Koko and his Ursula are here for the treatment teaching session post Fiducials being placed. Shadi and his run a [employer] in [place]. They are concerned that he might be [...] prostate documented in this encounter Care Teams Medical Review Specialist Relationship Specialty Start Date End Date Bobby Das MD PCP - General 07/06/[address] [place] [address] ,[address] [place] [address] documented as of this encounter
--- OUTSIDE RECORDS SUMMARY | 2022-07-17 10:45 | XMS_ITS | Encounter Summary ---
:1940 Author Organization [facility] Address [address] [place] [address] Care Team Providers Name Role Phone Bobby Das MD Primary Care Provider Encounter Details Date Type Department Care Team Description 04/23/2018 Hospital Encounter [facility]- Devi Unknown, Provider, [facility] [address] [facility] [phone] [place] [address] (Work) [phone] Social History Tobacco Use Types Packs/Day Years [...] on filedocumented in this encounter Care Teams Corn Sheller Operator Relationship Specialty Start Date End Date Bobby Das MD PCP - General 07/06/[address] [place] [address] ,[address] [place] [address] documented as of this encounter
--- OUTSIDE RECORDS SUMMARY | 2022-07-17 10:45 | XMS_ITS | Encounter Summary ---
:1940 Author Organization [facility] Address [address] [place] [address] Care Team Providers Name Role Phone Bobyb Das MD Primary Care Provider Reason for Referral Laboratory Services (Routine) - Closed Specialty Diagnoses / Procedures Referred By Contact Refer red To Contact Diagnoses Malignant neoplasm of prostate ([facility]) ([facility]) Aries Gutierrez III, Procedures PSA TOTAL, DIAGNOSTIC MD [address] [place] [phone] Referral ID Status Reason Start Date Expiration Date Visits Requ ested Visits Authorized [id number] Closed 07/11/2019 1 1 Encounter Details Date Type Department Care Team Description 01/08/2019 Documentation Visit [facility] Aries Gutierrez Malignant neoplasm Radiation Oncology Felix EAST MD of prostate - [address] ([facility]) (Primary 111 [facility] Dx) [facility], [address] [place] [address] [address] Social History Tobacco Use Types [...] Diagnosis Malignant neoplasm of prostate ([facility]) (HCC) - Primary Malignant neoplasm of prostate documented in this encounter Care Teams Retail Merchandising Specialist Relationship Specialty Start Date End Date Bobby Das MD PCP - General 07/06/[address] [place] [address],[address] [place] [address] documented as of this encounter
--- OUTSIDE RECORDS SUMMARY | 2022-07-17 10:45 | XMS_ITS | Encounter Summary ---
:1940 Author Organization [facility] Address [address] [place] [address] Care Team Providers Name Role Phone Bobby Das MD Primary Care Provider Reason for Visit Reason Comments Follow-up Encounter Details Date Type Department Care Team Description 12/02/2017 Office Visit [facility] Erlin José MD Malignant neoplasm of Urology - [address] ([facility] ([facility]) (Primary 111 [facility] [place] [address] [address], [place] [address] (Wo rk) Social History Tobacco [...] Progress Notes Chino José MD - 12/02/2017 3638 EST Chief Complaint: Chief Complaint Patient presents with ??? Follow-up HPI: Koko is a 77 y.o. male with prostate cancer. I originally saw the patient and [facility] and diagnosed him with [place] 3+4 prostate cancer associated with a PSA of 12.8. He underwent a bone scan for staging that came back negative for metastatic disease. He is seeing me today at [facility] for a Lupron injection. He started his [...] ( desire to have sex ). Some alley cleaner hormonal therapy is associated with the loss [...] 12/02 documented in this encounter Care Teams Can Tender Relationship Specialty Start Date End Date Bobby Das MD PCP - General 07/06/[address] [place] [address],[address] [place] [address] documented as of this encounter
--- OUTSIDE RECORDS SUMMARY | 2022-07-17 10:45 | XMS_ITS | Encounter Summary ---
:1940 Author Organization [facility] Address [address] [place] [address] Care Team Providers Name Role Phone Bobby Das MD Primary Care Provider Reason for Visit Reason Onset Date Comments Follow-up 02/24/2018 Appointment Related 02/24/2018 scheduled appt w/ nu rsing for Lupron injection on 04/06 Encounter Details Date Type Department Care Team Description 02/24/2018 Telephone [facility] Ama Corea, Follow -up; Appointment Urology - James campo RN Related (scheduled appt 111 [facility] w/ [place] [address] injection on 04/06) [phone] Social History Tobacco Use Types Packs/Day Years Used Date Current Every Day Smoker Smokeless Tobacco: Never Used Sex Assigned at Date Recorded Not on file documented as of this encounter Miscellaneous Notes Telephone Encounter - Mague Crisostomo - 02/25/2018 1044 EDT scheduled appt w/ nursing for Lupron injection on 04/06; pt prefers it at the [place] [facility] Telephone Encounter - Ama Corea, RN [...] filedocumented in this encounter Care Teams Senior Insight Manager Relationship Specialty Start Date End Date Bobby Das MD PCP - General 07/06/[address] [place] [address],[address] [place] [address] documented as of this encounter
--- OUTSIDE RECORDS SUMMARY | 2022-07-17 10:45 | XMS_ITS | Encounter Summary ---
:1940 Author Organization [facility] Address [address] [place] [address] Care Team Providers Name Role Phone Bobby Das MD Primary Care Provider Reason for Visit Reason Comments Prostate Cancer Encounter Details Date Type Department Care Team Description 02/03/2018 Radiation Therapy [facility] Aries Gutierrez alignant neoplasm Visit Radiation Oncology Felix EAST MD of [facility] - [address] ([facility]) ([facility]) [address] [place] [address] (Primary Dx) [facility], [address] [place] [address] [address] [place] [address] Social History Tobacco Use Types Packs/Day Years Used Date Current Every Day Smoker Smokeless Tobacco: Never Used Sex Assigned at Date Recorded Not on file documented as of this encounter Progress Notes Delores Gutierrez III, MD - 02/03/2018 3626 EDT On Treatment Visit Assessment: Koko Zamora is currently receiving radiation therapy treatment and is being seen today for his weekly on treatment visit. The encounter diagnosis was Malignant neoplasm of prostate ([facility]). Assessment: Assessment Completed By: Felix Gutierrez MD (02/03/18 3119) Radiation Therapy: Cumulative RT Dose 600 cGy [...] Changes: None Sj Gutierrez MD Radiation Oncology [phone] (office) [phone] (pager) documented in this encounter Plan of [...] documented as of this encounter Care Teams Central Office Trouble Shooter Relationship Specialty Start Date End Date Bobby Das MD PCP - General 07/06/[address] [place] [address],[address] [place] [address] documented as of this encounter
--- OUTSIDE RECORDS SUMMARY | 2022-07-17 10:45 | XMS_ITS | Encounter Summary ---
:1940 Author Organization [facility] Address [address] [place] [address] Care Team Providers Name Role Phone Bobby Das MD Primary Care Provider Encounter Details Date Type Department Care Team Description 01/08/2019 Orders Only [facility] Cancer [place] Aries Gutierrez neoplasm of Radiation Oncology - Felix EAST MD prostate ([facility]) [address] (Primary Dx) [address] [place] [address] [facility] [phone] [facility] [address] [place] [address] (Wo rk) Social History Tobacco Use Types Packs/Day Years Used Date Current Every Day Smoker Smokeless Tobacco: Never Used Sex Assigned at Date Recorded Not on file documented as of this encounter Plan of Treatment Not on filedocumented as of this encounter Results PSA TOTAL, DIAGNOSTIC (07/16/2019 9:30 EDT) PSA 0.1 0 - 6.5 ng/ml [facility] Comment: LABORATORY SERVICES Serum PSA concentration should not be interpreted as absolute evidence for the presence or absence of malignant disease. Assayed utilizing Siemens (myEDmatch) chemiluminescent technology. ??Values obtained by using different assay methods cannot be used interchangeably. Specimen Blood specimen (specimen) - Blood Performing Organization Address City/State/ZIP Code Phon e Number [facility] [address] [place] [address] SERVICES documented in this encounter Visit Diagnoses Diagnosis Malignant neoplasm of prostate ([facility]) (HCC) - Primary Malignant neoplasm of prostate documented in this encounter Care Teams Needle Straightener Relationship Specialty Start Date End Date Bobby Das MD PCP - General 07/06/[address] [place] [address],[address] [place] [address] documented as of this encounter
--- OUTSIDE RECORDS SUMMARY | 2022-07-17 10:45 | XMS_ITS | Encounter Summary ---
:1940 Author Organization [facility] Address [address] [place] [address] Care Team Providers Name Role Phone Unknown, Provider Primary Care Provider Encounter Details Date Type Department Care Team Description 07/03/2015 Results Only [facility] Abby Das MD [phone] [place] [address],[address] [place], [place] [phone] (Wo rk) Social History Tobacco Use Types Packs/Day Years Used Date Never Assessed Sex Assigned at Date Recorded Not on file documented as of this encounter Plan of Treatment Not on filedocumented as of this encounter Procedures Procedure Name Priority Date/Time Associated Diagnosis Comme [facility] SURGICAL PATHOLOGY Routine 07/03/2015 8:54 EDT Re sults for this procedure are i n the results section. documented in this encounter Results SURGICAL PATHOLOGY (07/03/2015 8:54 EDT) Pathology Report: SURGICAL PATHOLOGY REPORT [facility] Reports generated via electronic interface contain abram ginal data; LABORATORY however they are lacking the format of the original re port. SERVICES Caution should be taken when reading/interpreting unfo rmatted reports. Name: ? ETTA BAH ? Accession #: ? [id number] ? : ? 1940 (Age: 74) ??M ? Collect Date: ? 07/03/2015 ? Location: ? [facility] ? Receive Date: ? 07/04/20 15 ? Provider: ABBY DAS MD Copy to: ? Final Pathologic Diagnosis: SKIN OF JUDAISM, RIGHT, EXCISION: - Basal cell carcinoma, infiltrative [...] the above diagnosi s. Specimen(s) Received: R orthodoxy Clinical History: Basal cell carcinoma reexcision Gross [...] Organization Address City/State/ZIP Code Phon e Number [facility] [address] [place] [address] SERVICES documented in this encounter Visit Diagnoses Not on filedocumented in this encounter Care Teams Security Delivery Specialist Relationship Specialty Start Date End Date Unknown, Provider, PCP - General 07/03/15 07/05/15 documented as of this encounter
--- OUTSIDE RECORDS SUMMARY | 2022-07-22 10:25 | XMS_ITS | Encounter Summary ---
:1940 Author Organization [place] [address] Care Team Providers Name Role Phone Bobby Das MD Primary Care Provider Encounter Details Date Type Department Care Team Description 06/19/2022 Telephone Cardiology at [facility] Kourtney Jimenez, [facility] [place] [address] Social History Tobacco Use Types Packs/Day [...] Zamora: Requesting a referral to Cardiac Rehab [facility] Forward to Dr Reid documented in this encounter Plan of Treatment Upcoming Encounters Date Type Specialty Care Team Description 08/08/2022 Office Visit Gastroenterology Negra Collins MD [facility] GASTROENTEROLOGY DEPT [place], [place] [address] (Wo rk) 09/05/2022 Appointment Cardiology Trinity Reid MD [facility] CARDIOLOGY [place], [place] [address] (Wo rk) 09/05/2022 Office Visit Cardiology Trinity Reid MD [facility] CARDIOLOGY [place], [place] [address] (Wo rk) documented as of this encounter Visit Diagnoses Not on filedocumented in this encounter Care Teams Heat And Vent Aircraft Mechanic Relationship Specialty Start Date End Date Bobby Das MD PCP - General 10/02/[address] [place] [address] [place] [address] documented as of this encounter
--- OUTSIDE RECORDS SUMMARY | 2022-07-22 10:25 | XMS_ITS | Encounter Summary ---
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 Alan Reid Cardiac Rehab, MD Kurt [address] [place], [place] CARDIOLOGY [address] [place] [address] Referral ID Status Reason Start Date Expiration Date Visits V isits Requested Authorized [id number] Closed Consult, 06/20/2022 12/17/2022 36 36 Test & Treat Encounter Details Date Type Department Care Team Description 06/20/2022 Orders Only Cardiology at [facility] Alan Reid HFrEF (heart failure with re duced ejection fraction); [facility] MD Kurt Coronary artery disease involving douglas coronary artery of douglas heart [place] [address] CARDIOLOGY [phone] [place], [place] [address] (Wo rk) Social History Tobacco [...] [facility] GASTROENTEROLOGY DEPT [place], [place] [address] (Wo rk) 09/05/2022 Appointment Cardiology Trinity Reid MD [facility] CARDIOLOGY [place], [place] [address] (Wo rk) 09/05/2022 Office Visit Cardiology Trinity Reid MD [facility] CARDIOLOGY [place], [place] [address] (Wo rk) Scheduled Referrals Name Type Priority Associated Diagnoses [facility] to [facility] Referral Routine HFrEF (heart failure Ordered: Cardiac Rehab with reduced 06/20/2022 ejection fractio n) 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
--- OUTSIDE RECORDS SUMMARY | 2022-07-22 10:25 | XMS_ITS | Encounter Summary ---
:1940 [place] [address] Care Team Providers Name Role Phone Bobby Das MD Primary Care Provider Encounter Details Date Type Department Care Team Description 06/13/2022 Office Visit Vascular Surgery at [facility] Fito Summers MD Limb ischemia [facility] [place] [phone] VASCULAR SURGERY [phone] [place] [address] (Wo rk) Social History Tobacco Use Types [...] s/p repair Overview Note: Surgery done at [facility] in 2000 ??? Hypertriglyceridemia Overview [...] with ABIs. Fito Summers MD Vascular Surgery [facility] Emily Power CMA - 06/13/2022 8:00 AM EDT Handwashing performed, gloves on.As instructed by windy removed on LLE medial and lateral aspect, cleansed after staple remover, steri strips applied. Gloves off, handwashing performed. documented in this encounter Plan of Treatment Upcoming Encounters Date Type Specialty Care Team Description 08/08/2022 Office Visit Gastroenterology Negra Collins MD [facility] GASTROENTEROLOGY DEPT [place], [place] [address] (Wo rk) 09/05/2022 Appointment Cardiology Trinity Reid MD [facility] [address] [place], [place] [address] (Wo rk) 09/05/2022 Office Visit Cardiology Trinity Reid MD [facility] [address], [place] [address] (Wo rk) documented as of this encounter Visit Diagnoses Diagnosis Limb ischemia Unspecified circulatory system disorder documented in this encounter Care Teams Food Scientist Relationship Specialty Start Date End Date Bobby Das MD PCP - General 10/02/[address] [place] [address] [place] [address] documented as of this encounter
--- OUTSIDE RECORDS SUMMARY | 2022-07-22 10:25 | XMS_ITS | Encounter Summary ---
:1940 Author Organization [facility] [place] [address] Care Team Providers Name Role Phone Bobby Das MD Primary Care Provider Encounter Details Date Type Department Care Team Description 06/25/2022 Surgery Gastroenterology at [facility] Giovani Ponce, EGD, UPPER GI [facility] Bobby gilliland [place] [address] [facility] [phone] [place], [place] [address] Social History Tobacco Use Types [...] the day after the procedure, use an wcku-dqo-lckwxrk spray to numb your throat. Sucking on [...] occurs, please contact your Doctor. Please call [phone] before 8pm Mon-Fri with problems, questions or concerns. If you call after 8pm or on weekends, call the Hospital at [phone] and ask to speak to the Cigar Binder alteration specialist and the lye peel operator will contact that person for you. When should you call for help? Call [phone] anytime you think you may need emergency [...] Where can you learn more? [facility] View your After Visit Summary and more online at [email or web address] If you would like to provide feedback about your hospital experience, please call the Office of Patient and Family Relations at . If you have received this After Visit Summary in error, please immediately return it in person to the department, or notify the [facility] Privacy Office by calling toll free at between the hours of 8AM and 5PM to arrange for our retrieval of the documents at no cost to you. Content Version: 12.2 ?? 9232-0061 [employer]. Care instructions adapted under license by [facility]. If you have questions about a medical condition or this instruction, always ask your healthcare professional. [employer] disclaims any warranty or liability for [...] occurs, please contact your Doctor. Please call [phone] before 8pm Mon-Fri with problems, questions or concerns. If you call after 8pm or on weekends, call the Hospital at [phone] and ask to speak to the Cigar Binder alteration specialist and the lye peel operator will contact that person for you. When should you call for help? Call [phone] anytime you think you may need emergency [...] Where can you learn more? [facility] View your After Visit Summary and more online at [email or web address] If you would like to provide feedback about your hospital experience, please call the Office of Patient and Family Relations at . If you have received this After Visit Summary in error, please immediately return it in person to the department, or notify the [facility] Privacy Office by calling toll free at between the hours of 8AM and 5PM to arrange for our retrieval of the documents at no cost to you. Content Version: 12.2 ?? 5219-8852 [employer]. Care instructions adapted under license by [facility]. If you have questions about a medical condition or this instruction, always ask your healthcare professional. [employer] disclaims any warranty or liability for your [...] 21 (FLONASE) 50 mcg/actuation Nare route daily [place], Suspension as needed. fluorouraciL (EFUDEX) 5 % [...] ischemia I99.8 ??? 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 HFrEF (heart failure with reduced ejection [...] MD [facility] GASTROENTEROLOGY DEPT [place], [place] [address] (Wo rk) 09/05/2022 Appointment Cardiology Trinity Reid MD [facility] CARDIOLOGY [place], [place] [address] (Wo rk) 09/05/2022 Office Visit Cardiology Trinity Reid MD [facility] CARDIOLOGY [place], [place] [address] (Wo rk) documented as of this [...] Component Value Ref Test Analysis Performed At [facility] [place] Method Time Signature UPPER GI [facility] ENDOSCOPY Endoscopy Procedure Date: 06/25/2022 10:33 AM ? Patient Name: Koko Zamora ? Date of : 1940 ? Age: 81 ? Order #: [id number] ? Instrument Name: [id number]- [id number] ? Procedure: ? Upper GI endoscopy Indications: ? Recent gastrointestinal bleeding Providers: ? Giovani Ponce, Isi puente, ? Brissa Vee RN, Darrell ? Confalone Referring MD: ?[facility]: ? Propofol per Anesthesia Complications: ? No [...] Component Value Ref Test Analysis Performed At [facility] Method Time Signature COLONOSCOPY [facility] Endoscopy Procedure Date: 06/25/2022 10:33 AM ? Patient Name: Koko Zamora ? Date of : 1940 ? Age: 81 ? Order #: [id number] ? Instrument Name: [id number]- [id number] ? Procedure: ? Colonoscopy Indications: ? Gastrointestinal [...] Procedure Code(s): ? --- Professional --- ? 13566, Colonoscopy, flexib le; with ? control of [...] of sigmoid ? colon CPT copyright 2021 [employer]. All rights reserved. The codes documented in this report are preliminary and upon golf club assembler review may be revised to meet current [...] Procedure) documented in this encounter Care Teams Pharmacy Technician Relationship Specialty Start Date End Date Bobby Das MD PCP - General 10/02/[address] [place] [address] [place] [id number] documented as of this encounter
--- OUTSIDE RECORDS SUMMARY | 2022-07-22 10:25 | XMS_ITS | Clinical Summary ---
:1940 Author Organization [facility] [place] [address] Care Team Providers Name Role Phone Bobby [...] 04/12/2021 Active (FLONASE) 50 mcg/actuation Each Nare [place], Suspension route daily as needed. 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 Permanent atrial fibrillation 06/13/2022 Last Assessment & [...] consideration of AV no de ablation and SENIOR QUALITY MANAGER-D Limb ischemia 05/15/2022 History of basal cell carcinoma 05/31/2014 Basal cell carcinoma 03/29/2014 Verruca vulgaris 03/29/2014 AK (actinic keratosis) 03/29/2014 GIB (gastrointestinal bleeding) 06/28/2011 Overview: Secondary to 3-4 ASA/day, required admis lynette and blood transfusion MVP (mitral valve prolapse) s/p repair 06/28/2011 Overview: Surgery done at [facility] in 2 001 Hypertriglyceridemia 06/28/2011 [...] Hicks MD Coronary priscilla ry disease involving tonto apache coronary artery of tonto apache heart without angina pectoris 06/19/2022 Telephone Cardiology Kourtney Jimenez RN 06/17/2022 Orders Only Dermatology Loretta Cohen Basal cell c carlos Paez MD (BCC) of right forehead 06/13/2022 Office Visit Cardiology Jeanette, Coronary artery disease involving tonto apache coronary artery of tonto apache heart without angina pectoris; Alan Hicks MD [...] Gastroenterology Elmer Johnson MD Drost, Alexander J, TARGET MAN 05/31/2022 Surgery Gastroenterology Giovani Ponce UPPE R GI M, MD ENDOSCOPY 05/31/2022 - Hospital Encounter Dominique Hinds GIB (g astrointestinal 06/02/2022 MD bleeding) (Primary Dx) Mahendra Victor MD Friedman, Harley P, MD Ratanamaneechat, Suphagaphan, MD 05/31/2022 Office Visit Vascular Surgery DavinaStephanie bellamyy Dizzy; B, LEAD TECHNICAL ARCHITECT Atrial fibrilla tion, unspecified type; SOB (shortness of breath) 05/28/2022 Telephone Vascular Surgery Dominique Bolivar RN 05/24/2022 Telephone Cardiology Kourtney Jimenez RN 05/21/2022 Hospital Encounter Cardiology Paroxysma l atrial fibrillation 05/20/2022 Surgery Cardiology Abundio Servin MD CATHETERIZATION 05/15/2022 Anesthesia Event Surgery Cari Hernandez MD Patel, Shreena K, TARGET MAN 05/15/2022 Surgery Surgery Fito Summers EMBOLECTOMY O [...] Negra Collins MD [facility] GASTROENTEROLOGY DEPT [place], [place] [address] (Wo rk) 09/05/2022 Appointment Cardiology Trinity Reid MD [facility] CARDIOLOGY [place], [place] [address] (Wo rk) 09/05/2022 Office Visit Cardiology Trinity Reid MD [facility]ARDI[facility] [place], [place] [address] (Wo rk) Health Maintenance Due [...] Component Value Ref Test Analysis Performed At [facility] Range Method Time Signature UPPER GI [facility]ATION ENDOSCOPY Endoscopy Procedure Date: 06/25/2022 10:33 AM ? Patient Name: Koko Bah ? Date of : 1940 ? Age: 81 ? Order #: [id number] ? Instrument Name: [id number] ? Procedure: ? Upper GI endoscopy Indications: [...] Component Value Ref Test Analysis Performed At [facility] Method Time Signature COLONOSCOPY [facility] Endoscopy Procedure Date: 06/25/2022 10:33 AM ? Patient Name: Koko Bah ? Date of : 1940 ? Age: 81 ? Order #: [id number] ? Instrument Name: [id number]- [id number] ? Procedure: ? Colonoscopy Indications: ? Gastrointestinal [...] Procedure Code(s): ? --- Professional --- ? 02053, Colonoscopy, flexib le; with ? control of [...] of sigmoid ? colon CPT copyright 2020 [employer]. All rights reserved. The codes documented in this report are preliminary and upon district service manager review may be revised to meet [...] Component Value Ref Test Analysis Performed At [facility] Range Method Time Signature VB Text Department: Vascular Surgery Lab VASCUBASE Report Patient: [id number] (KOKO BAH) CPT: 32123 Referring Physician: FITO SUMMERS ?? Phone: Indications: s/p L STONE GLUER endart. Diabetes mellitus: no Findings: Right ?Pressure [...] Summers MD VASCULAR ORDERABLES Performing Organization Address City/[facility]/ZIP Code Phon e Number VASCUBASE Specimen to Pathology (06/10/2022 1:20 PM EDT) Specimen Anatomical Collection Method Collection Time Receive d Time (Source) Location / / Volume Laterality AP Specimen 06/10/2022 1:20 PM 1:20 EDT PM EDT Narrative [facility] - 06/10/2022 1:20 PM EDT Specimen requisition ordered. ??Separate Pathology report to follow Loretta Cohen MD PATHOLOGY/CYTOLOGY ORDERABLE S Performing Organization Address [facility] [place] [address] [facility] [address] Surgical Pathology Report (06/10/2022 11:43 AM EDT) Component Value Ref Test Analysis Performed At [facility] Range Method Time Signature Surgical [id number] ? Location: [facility] Report The signing pathologist has (i) examined the relevant preparation(s) for the [facility] specimen(s) and (ii) rendered or confirmed the diagnosis(es) . HOSPITAL LABORATORY . ?Surgic al Pathology DIAGNOSIS Right lateral eyebrow, skin shave biopsy: - ??Basal cell carcinoma, no dular pattern, transected at the peripheral and deep specimen edges Electronically signed by: ?Delroy CARCAMO, PhD, Ian Verified: ??06/12/2022 14:33 ??Dermatopathologist Performed at: ??-[facility] Dept. of Pathology, [place], [place] SPECIMEN(S) SUBMITTED A - right lateral [...] Organization Address City/State/ZIP Code Phon e Number [place] [id number] (ABNORMAL) Hemogram (06/02/2022 8:20 AM EDT)Only the most recent of14 results within the time period is included. Analysis Performed At Patho logist Time Signature WBC 7.2 4.0 - 9.5 [facility] X[facility] x10(3)/[facility] LABORATORY RBC 2.74 (L) 4.58 - [facility] 5.54 [facility] x10(6)/[facility] LABORATORY Hemoglobin 8.7 (L) 13.7 - [place] 16.5 g/dL [facility]OR[facility]ORY Hematocrit 25.7 (L) 40.5 - [facility] X[facility] 48.5 % [facility]ORY MCV 93.8 (H) 82.9 - [place] 93.1 [facility] LABORATORY MCH 31.8 27.5 - [facility] 32.1 pg [facility] LABORATORY MCHC 33.9 32.0 - [place] 35.7 g/dL [facility]ORY Platelets 260 145 - 357 [place] 17u.cn x10(3)/[facility] LABORATORY RDWSD 51.0 (H) 36.0 - [place] 45.0 [facility] LABORATORY RDWCV 14.9 (H) 11.4 - [place] 13.8 % [facility] LABORATORY MPV 10.0 7.6 - 12.9 [facility] nRBC % Auto 0.0 % [facility] nRBC Abs Auto 0.000 0.000 - [facility] 0.000 [facility] x10(3)[facility] LABORATORY Specimen Anatomical Collection Method Collection Time Receive d Time (Source) Location / / Volume Laterality Blood 06/02/2022 8:20 AM 8:25 EDT AM EDT Resulting Agency Comment Spec In Lab Kurt Ames MD HEMATOLOGY ORDERABLES Performing Organization Address City/State/ZIP [place] [address] (ABNORMAL) Differential, Automated (06/02/2022 8:20 AM EDT)Only the most recent of14 resultswithin the time period is included. P athologist Signature Neutrophils % 61.3 % [facility] Neutr Abs (ANC) 4.44 1.70 - [facility] 6.10 [facility] x10(3)[facility] LABORATORY Lymphocytes % 25.2 % [facility] Lymphocytes Abs 1.8 0.9 - 3.2 [facility] x10(3)[facility] LABORATORY Monocytes % 10.0 % [facility] Monocyte Abs 0.7 0.3 - 0.9 [facility] x10(3)[facility] LABORATORY Eosinophils % 2.1 % [facility] Eosinophils Abs 0.2 0.0 - 0.4 [facility] x10(3)[facility] LABORATORY Basophils % 0.7 % [facility] Basophils Abs 0.0 0.0 - 0.1 [facility] x10(3)[facility] LABORATORY Immature Gran % 0.70 % [facility] Comment: Immature granulocytes(IG's)percentage an d absolute count will include metamyelocytes, myelocytes, and promyelo cytes. Blood smears from CBCs yielding IG's will be scanned manually for concor dance. If this scan disagrees with the automated IG or if promyelocytes are not ed, a manual differential will be performed. Rain Gran Abs 0.05 (H) 0.00 - 0.04 x10(3)/mcL [facility] Specimen Anatomical Collection Method Collection Time Receive d Time (Source) Location / / Volume Laterality Blood 06/02/2022 8:20 AM 2 8:25 EDT AM EDT Resulting Agency Comment Spec In Lab Kurt Ames MD HEMATOLOGY ORDERABLES Performing Organization Address City/State/ZIP Code Phon e Number [address] Heparin (unfractionated) Level (06/02/2022 6:30 AM EDT)Only the most recent of11 resultswithin the time period is included. athologist Signature Heparin UFH 0.39 IU/mL [facility] LABORATORY Comment: Heparin (anti-Xa) levels [...] Organization Address City/State/ZIP Code Phon e Number [address] Magnesium (06/02/2022 12:30 AM EDT)Only the most recent of5 resultswithin the time period is included. athologist Signature Magnesium 0.83 0.69 - 1.07 [facility] mmol/L [facility] LABORATORY Specimen Anatomical Collection Method Collection Time Receive d Time (Source) Location / / Volume Laterality Blood 06/02/2022 12:30 06/02/2022 AM EDT 12:40 AM EDT Resulting Agency Comment Spec In Lab Mahendra Victor MD CHEMISTRY ORDERABLES Performing Organization Address City/State/ZIP [place] [address] (ABNORMAL) Basic Metabolic Panel (non-fasting) (06/02/2022 12:30 AM EDT)Only the most recent of6 resultswithin the time period is included. athologist Signature Glucose Lvl 151 65 - 199 [facility] mg/dL [facility] Comment: Diabetes: >=200 mg/dL plus symp toms BUN 12 10 - 20 mg/dL [facility] Creatinine 0.71 (L) 0.80 - 1.50 mg/dL [facility] Sodium 142 135 - 145 mmol/L [facility] Potassium 3.8 3.5 - 5.0 mmol/L [facility] LABORATORY [...] 15 mmol/L [facility] Calcium 8.1 (L) 8.5 - 10.5 mg/dL [facility] Estimated GFR 93 >=60 mL/min/1.73 m?? [facility] Comment: [...] Organization Address City/State/ZIP [place] [address] SCAN DOC: TELEMETRY STRIPS (06/01/2022 8:37 PM EDT)Only the most recent of8 resultswithin the time period is included. Narrative This result has an attachment that is no t available. Unknown MEDIA MGR SCAN EXT ORDR/RSLT (ABNORMAL) Urinalysis with reflex Culture (06/01/2022 4:00 AM EDT)Only the most recent of2 resultswithin the time period is included. [facility] gist Method Time Signature Glucose UA 500 Negative [facility] (Critical) mg/dL [facility] Comment: Urinalysis result NOT critical without a combination of Glucose greater than or equal to 500 mg/dL AND Ketones greate r than or equal to 80 mg/dL Protein UA Negative Negative mg/dL [facility] Bilirubin UA Negative Negative mg/dL [...] HOSPITAL LABORATORY Blood UA Negative Negative mg/dL [facility] Ketones UA Negative Negative mg/dL [facility] Nitrite UA Negative Negative [facility] Leukocytes UA Negative Negative mcL [facility] Appearance UA Clear Clear [facility] Spec [place] UA >=1.030 (A) 1.005 - 1.030 [facility] Color UA Yellow Yellow [facility] Culture Reflexed No [facility] Specimen Anatomical Collection Method Collection Time Receive d Time (Source) Location / / Volume Laterality Clean Catch 06/01/2022 4:00 AM 4:26 Urine EDT AM EDT Resulting Agency Comment Spec In Lab Mahendra Victor MD URINE ORDERABLES Performing Organization Address City/State/ZIP [place] [address] Transfuse RBC (05/31/2022 7:36 PM EDT) Dominique Hinds MD NURSING TREATMENT ORDERABLES - BLOOD ADMIN UPPER GI ENDOSCOPY (05/31/2022 3:37 PM EDT) Component Value Ref Test Analysis Performed At [facility] Range Method Time Signature UPPER GI [facility] ENDOSCOPY Endoscopy Procedure Date: 05/31/2022 3:37 PM ? Patient Name: Koko Bah ? Date of : 1940 ? Age: 81 ? Order #: [id number] ? Instrument Name: [id number] ? Procedure: ? Upper GI endoscopy Indications: [...] Endoscope w as ? introduced through the [facility], and ? advanced to the fourth par [...] Procedure Code(s): ? --- Professional --- ? 11658, Esophagogastroduode noscopy, ? flexible, transoral; with control [...] stomach ? and duodenum CPT copyright 2020 [employer]. All rights reserved. The codes documented in this report are preliminary and upon district service manager review may be revised to meet [...] who have questions please contact the health outdoor emergency care technician that requested your imaging first. ? Narrative 05/31/2022 2:39 PM EDT EXAMINATION: CT ABDOMEN AND PELVIS WWO CONTRAST (GI BLEED) CLINICAL HISTORY: Significant Hb drop. U nknown source. has had a [facility] with stent placed and revascularization of [...] enlarged lymph nodes. Vasculature: Patent common iliac, dormitory supervisor al iliac, and common femoral arteries bilaterally. [...] the original. EXAMINATION: CT ABDOMEN AND PELVIS [facility] (GI BLEED) CLINICAL HISTORY: Significant Hb drop. [...] enlarged lymph nodes. Vasculature: Patent common iliac, dormitory supervisor al iliac, and common femoral arteries bilaterally. [...] ho have questions please contact the health outdoor emergency care technician that requested your imaging first. Dominique Hinds MD IMG CT ORDERABLES Type and Screen Validity (05/31/2022 1:43 PM EDT)Only the most recent of2 resultswithin the time period is included. [facility] Method Time Signature T&S only valid [facility] LABORATORY Comment: This Type and Screen result is only valid at the [facility] Specimen Anatomical Collection Method Collection Time Receive d Time (Source) Location / / Volume Laterality Blood 05/31/2022 1:43 PM 2 1:57 EDT PM EDT Resulting Agency Comment Spec In Lab Dominique Hinds MD BLOOD BANK ORDERABLES Performing Organization Address City/State/ZIP [place] [address] ABORH Recheck Status (05/31/2022 1:43 PM EDT)Only the most recent of2 results within the time period is included. [facility] Method Time Signature ABORH Type Completed [facility] LABORATORY Specimen Anatomical Collection Method Collection Time Receive d Time (Source) Location / / Volume Laterality Blood 05/31/2022 1:43 PM 2 1:57 EDT PM EDT Resulting Agency Comment Spec In Lab Dominique Hinds MD BLOOD BANK ORDERABLES Performing Organization Address City/[facility]/[place] [address] ABO/Rh Typing (05/31/2022 1:43 PM EDT)Only the most recent of2 resultswithin the time period is included. P athologist Signature ABORh Type O Pos [facility] Specimen Anatomical Collection Method Collection Time Receive d Time (Source) Location / / Volume Laterality Blood 05/31/2022 1:43 PM 2 1:57 EDT PM EDT Resulting Agency Comment Spec In Lab Dominique Hinds MD BLOOD BANK ORDERABLES Performing Organization Address [facility]/ZIP [place] [address] Antibody screen (05/31/2022 1:43 PM EDT)Only the most recent of2 resultswithin the time period is included. Patholo gist Method Time Signature Ab Screen Negative [facility] LABORATORY Expires at 06/03/2022 [facility] [id number] on: [facility] LABORATORY Specimen Anatomical Collection Method Collection Time Receive d Time (Source) Location / / Volume Laterality Blood 05/31/2022 1:43 PM 2 1:57 EDT PM EDT Resulting Agency Comment Spec In Lab Dominique Hinds MD BLOOD BANK ORDERABLES Performing Organization Address City/[facility]/ZIP Code Phon e Number [address] Prepare RBC (05/31/2022 1:35 PM EDT)Only the most recent of2 resultswithin the time period is included. P athologist Signature Dispensed? Yes [facility] Specimen Anatomical Collection Method Collection Time Receive d Time (Source) Location / / Volume Laterality Blood 05/31/2022 1:35 PM 2 1:30 EDT PM EDT Dominique Hinds MD BLOOD BANK ORDERABLES Performing Organization Address City/State/ZIP [place] [address] (ABNORMAL) BLOOD GAS 2 VENOUS (05/31/2022 11:24 AM EDT) P athologist Signature pH Marco Antonio 7.38 7.32 - [facility] 7.42 [facility] LABORATORY pCO2 [place] 40 (L) 41 - 51 [facility] LABORATORY pO2 [place] 18 (L) 25 - 40 [facility] LABORATORY HCO3 [place] 23.3 mmol/L [facility] BE Marco Antonio -1.8 mmol/L [facility] Hgb Blood Gas 7.0 (L) 13.7 - [facility] 16.5 g/dL [facility] LABORATORY O2HB Marco [place] 24.3 % [facility] COHB Marco [place] 1.4 % [facility] Comment: Nonsmokers: 0.5-1.5% COHB Smokers: Variable, but usually less than 10% Toxic: 20-30% COHB Lethal: Greater than 60% COHB METHB Marco Antonio 1.7 (H) <=1.5 % [facility] Na Whole Blood 137 135 - 145 mmol/L [facility] K Whole Blood 3.9 3.5 - 5.0 mmol/L [facility] LABOR[facility]ORY Comment: Please note: Patients with WBC >100,000 may have falsely elevated Potassium levels. Contact the Clinical Chemistry L aboratory if there are any questions. ICa Whole Blood 1.19 1.15 - 1.33 mmol/L [facility] Comment: Note: ??Total bilirubin higher than 20 m g/dL may lead to falsely low ionized calcium. CL Whole Blood 107 98 - 107 mmol/L [facility] Gluc Whole Bld 204 (H) 65 - 199 mg/dL [facility] LAB[facility] Comment: Diabetes: >=200 mg/dL plus symp toms Lactate WB 1.4 0.5 - 2.2 mmol/L [facility] LABORATORY BGas Source Venous [facility] LABOR[facility]ORY Specimen Anatomical Collection Method Collection Time Receive d Time (Source) Location / / Volume Laterality Blood 05/31/2022 11:24 05/31/2022 AM EDT 11:24 AM EDT Dominique Hinds MD CHEMISTRY ORDERABLES Performing Organization Address City/[facility]/ZIP Code Phon e Number [address] TSH Hartley (05/31/2022 11:20 AM EDT) P athologist Signature TSH 1.67 0.27 - 4.20 [facility] mcIU/mL [facility] LABORATORY Comment: Reference Interval (mcIU/mL): Females: ??First Trimester: 0.23-3.88 ??Second Trimester: 0.22-3.90 ??Third Trimester: 0.44-4.66 Specimen Anatomical Collection Method Collection Time Receive d Time (Source) Location / / Volume Laterality Blood 05/31/2022 11:20 05/31/2022 AM EDT 11:28 AM EDT Resulting Agency Comment Spec In Lab Dominique Hinds MD CHEMISTRY ORDERABLES Performing Organization Address City/[facility]/ZIP Code Phon e Number [address] XR Chest PA & [...] who have questions please contact the health outdoor emergency care technician that requested your imaging first. ? Narrative [...] ho have questions please contact the health outdoor emergency care technician that requested your imaging first. Dominique Hinds MD IMG DX ORDERABLES Blue Tube HOLD (05/31/2022 10:50 AM EDT) athologist Signature Blue Hold Sample in [facility] lab. [facility] LABORATORY Specimen Anatomical Collection Method Collection Time Receive d Time (Source) Location / / Volume Laterality Blood Venous Draw / 05/31/2022 10:50 05/31/2022 Unknown AM EDT 11:05 AM EDT Brittany Ramirez MD HEMATOLOGY ORDERABLES Performing Organization Address City/State/ZIP [place] [address] Troponin (05/31/2022 10:50 AM EDT) athologist Signature Troponin-T <0.01 0.00 - 0.00 [facility] ng/mL [facility] LABOR[facility]ORY Comment: The 99th percentile for Troponin T is le ss than 0.01 ng/mL, any detectable cTnT concentration using this assay should be considered elevated. According to the third universal definit ion of myocardial infarction the following criteria with a clinical prese ntation consistent with acute myocardial ischemia meets the diagnosis for a myocardial infarction ([place]). Detection of a rise and/or fall of [...] additional sample may be indicated. Reference: Third Daphne Definition of Myocardial Infarction. Journal of the [employer] 2012;60:1581-98 Specimen Anatomical Collection Method Collection Time Receive d Time (Source) Location / / Volume Laterality Blood 05/31/2022 10:50 05/31/2022 AM EDT 11:03 AM EDT Resulting Agency Comment Spec In Lab Dominique Hinds MD CHEMISTRY ORDERABLES Performing Organization Address City/State/ZIP Code Phon e Number [address] Phosphorus (05/31/2022 10:50 AM EDT)Only the most recent of2 resultswithin the time period is included. P athologist Signature Phosphorus 3.2 2.5 - 4.5 [place] NOEILCOCK mg/dL [facility] LABORATORY Specimen Anatomical Collection Method Collection Time Receive d Time (Source) Location / / Volume Laterality Blood 05/31/2022 10:50 05/31/2022 AM EDT 11:03 AM EDT Resulting Agency Comment Spec In Lab Dominique Hinds MD CHEMISTRY ORDERABLES Performing Organization Address City/[facility]/ZIP Code Phon e Number [address] (ABNORMAL) pro-Brain Natriuretic Peptide (05/31/2022 10:50 AM EDT) P athologist Signature ProBNP 1,077 (H) <=449 [place] [facility] pg/mL [facility] LABORATORY Specimen Anatomical Collection Method Collection Time Receive d Time (Source) Location / / Volume Laterality Blood 05/31/2022 10:50 05/31/2022 AM EDT 11:03 AM EDT Resulting Agency Comment Spec In Lab Dominique Hinds MD CHEMISTRY ORDERABLES Performing Organization Address City/[facility]/ZIP Code Phon e Number [address] Lipase (05/31/2022 10:50 AM EDT) P athologist Signature Lipase 41 0 - 60 [place] unit/L [facility] LABORATORY Specimen Anatomical Collection Method Collection Time Receive d Time (Source) Location / / Volume Laterality Blood Venous Draw / 05/31/2022 10:50 05/31/2022 Unknown AM EDT 11:11 AM EDT Resulting Agency Comment Spec In Lab Zain Champion MD CHEMISTRY ORDERABLES Performing Organization Address City/[facility]/Z[place] [address] (ABNORMAL) Hepatic Function Panel (05/31/2022 10:50 AM EDT) Analysis Performed At Patho logist Time Signature Total Protein 6.4 6.1 - 8.0 [place] g/dL [facility]OR[facility]ORY Albumin 4.1 3.2 - 5.2 [place] g/dL [facility] AST 24 0 - 39 [facility] XIAO unit/L [facility] ALT 44 0 - 55 [facility] XIAO unit/L [facility]ORY Alk Phos 63 40 - 130 [facility] Total <0.2 (L) 0.2 - 1.3 [place] [facility] Bilirubin mg/dL [facility] Bili, Direct 0.1 0.0 - 0.3 [facility] XIAO mg/dL [facility] Specimen Anatomical Collection Method Collection Time Receive d Time (Source) Location / / Volume Laterality Blood Venous Draw / 05/31/2022 10:50 05/31/2022 Unknown AM EDT 11:11 AM EDT Resulting Agency Comment Spec In Lab Zain Champion MD CHEMISTRY ORDERABLES Performing Organization Address City/[facility]/[place]IP [place] [address] EKG 12 Lead (05/31/2022 10:11 AM EDT)Only the most recent of3 resultswithin the time period is included. Component Value Ref Range Test Analysis Performed Pathologis t Method Time At Signature Ventricular rate 106 BPM MUSE SYSTEM QRS Duration 122 ms MUSE SYSTEM Q-T Interval 368 ms MUSE SYSTEM QTC Calculated 488 ms MUSE SYSTEM (Bezet) Calculated R [place] -43 degrees MUSE SYSTEM Calculated T [place] 109 degrees MUSE SYSTEM INTERPRETATION Atrial fibrillation [...] erpretation Confirmed by fellow MD Mike, [place] ([id number]) on 022 8:36:21 PM Confirmed by MD [...] Laterality Volume Narrative 05/20/2022 7:09 PM EDT ?[facility] ? Cardiac Cathete rization/Intervention Report ? Patient Name: Koko Bah. ? Procedure Date: 05/20/2022 ? A #: [id number] ? Primary Physician: Malathi, Abundio S ? Case #: [id number] ? File Name: [id number] ? Catheterization Order Number: [id number] ? [facility] ? Final Report [place], [place] ? Patient Name: ? Koko J. Klarissa uson ? ID#: ?[id number] ? : ?1940 ? Procedure Date: ? [...] procedure was Urgent. 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 Chest pain [...] ?3.5 guiding catheter and a 3.5 Fr [place] [address] ??20 Mhz. ??Imaging ?was successful. ??Image [...] premounted 2. 75 x 30 mm Rudy Bennett (AMPARO) was deployed ? with a maximum [...] may require ?modification of this regimen. [facility] Interventional Cardiology for ?questions. ?The 1 year [...] note might be different from the original. [facility] Cardiac Catheterization/Intervention Re port Patient Name: Koko Bah Procedure Date: 05/20/2022 A #: [id number] Primary Physician: Abundio Servin Case #: File Name: [id number] Catheterization Order Number: [id number] [facility] Drug Room Operator [facility] Final Report [place], [place] Patient Name: Koko Bah ID#: [id number] : 1940 Procedure Date: May 20, 2022 [...] designated a s ASA Class IV. The [facility] clinical frailty scale is 3: [...] e was Urgent. The indication for the boot and shoe laborer visit is cardiomyopathy. C hest pain [...] 3.5 guiding catheter and a 3.[address] [place] [address] 20 Mhz. Imaging was successful. Image [...] A premounted 2.75 x 30 mm Rudy Bennett (AMPARO) was deployed with a maximum inflation [...] require modification of this regimen. Consult D [facility] Interventional Cardiology for questions. The 1 year [...] 123 65 - 199 ILDA XIAO mg/dL [facility] Comment: Supplemental ranges: <140 mg/dL before meals <180 mg/dL all other times of the day Specimen Anatomical Collection Method Collection Time Receive d Time (Source) Location / / Volume Laterality Blood 05/20/2022 5:42 PM 2 5:42 EDT PM EDT Fito Summers MD POINT OF CARE TEST ORDERABLE S Performing Organization Address City/State/[place]IP [place] [address] (ABNORMAL) BMP w/fasting Glucose (05/20/2022 10:50 AM EDT) P athologist Signature Glucose 152 (H) 65 - 99 [facility] Fasting mg/dL [facility] Comment: ?Fasting* Glucose Interpretive [...] of Diabetes Mellitus, Position Statement from the [place] [employer]. ??Diabete s Care, Volume 33, Supplement 1, Nov 2009 BUN 11 10 - 20 mg/dL [facility] Creatinine 0.63 (L) 0.80 - 1.50 mg/dL [facility] Sodium 137 135 - [...] Summers MD CHEMISTRY ORDERABLES Performing Organization Address City/[facility]/ZIP Code Phon e Number [address] TSH (05/18/2022 8:00 PM EDT) P athologist Signature TSH 2.27 0.27 - 4.20 [facility] mcIU/mL [facility] Comment: Reference Interval (mcIU/mL): Females: ??First Trimester: 0.23-3.88 ??Second Trimester: 0.22-3.90 ??Third Trimester: 0.44-4.66 Specimen Anatomical Collection Method Collection Time Receive d Time (Source) Location / / Volume Laterality Blood 05/18/2022 8:00 PM 8:06 EDT PM EDT Resulting Agency Comment Spec In Lab Fito Summers MD CHEMISTRY ORDERABLES Performing Organization Address [facility]/ZIP [facility] [place] [address] (ABNORMAL) Urinalysis Microscopic Exam [...] Patiño MD URINE ORDERABLES Performing Organization Address City/[facility]/ZIP [facility] Phon e Number [address] XR Chest One View [...] who have questions please contact the health outdoor emergency care technician that requested your imaging first. ? Narrative [...] ho have questions please contact the health outdoor emergency care technician that requested your imaging first. Fito Summers [...] ? Medical Center ?[address] ? [place] [address] ?Voice: ?Fax: ? Echocardiogram Report Name: KOKO BAH ?Study Date: 05/16/2022 11:22 AM ? Patient Location: [address] [place], [place] [address] : 1940 ? Height: 67.5 in ? Account: [id number] Age: 81 yrs ? Weight: 176 lb Gender: Male ?BSA: 1.9 m2 Ordering Physician: FITO SUMMERS Referring Physician: MALI FLORIAN Performed By: Jolene Bernard RDCS Exam Location: [facility]. Interpretation Summary Left ventricle is mildly [...] and LV systolic dysfunction are new. Procedure Complete-[id number]. Image enhancement Optiso n was used for [...] might be different from the original. [facility] [address] [place] [address] Voice: Fax: Echocardiogram Report Name: KOKO BAH Study Date: 05/2022 11:22 AM Patient Location: [address] [place] [address] : 1940 Height: 67.5 in Account: [id number] Age: 81 yrs Weight: 176 lb Gender: Male BSA: 1.9 m2 Ordering Physician: FITO SUMMERS Referring Physician: MALI FLORIAN Performed By: Jolene Bernard [facility] Exam Location: [facility]. Interpretation Summary Left ventricle is mildly [...] and LV systolic dysfunction are new. Procedure Complete-[id number]. Image enhancement Optiso n was used for [...] Signature pH Art 7.33 (L) 7.35 - [facility] 7.45 [facility] pCO2 Art 41 35 - 45 [facility] mmHg [facility] pO2 Art 131 (H) 85 - 104 [facility] HCO3 Art 21.1 20.0 - [facility] 26.0 [facility] mmol/L [facility] BE Art -4.8 (L) -3.0 - 3.0 [facility] mmol/L [facility] Hgb Blood Gas 13.4 (L) 13.7 - [facility] 16.5 g/dL [facility] O2HB Art 96.9 94.0 - [facility] 97.0 % [facility] COHB Art 1.4 % [facility] LABORATORY [...] Organization Address City/State/ZIP [place] [address] (ABNORMAL) APTT (05/15/2022 12:30 [...] EDT Resulting Agency Comment Spec [facility] HEM[facility] ORDERABLES Performing Organization Address City/[facility]/ZIP [facility] Phon e Number [address] (ABNORMAL) Prothrombin Time (05/15/2022 12:30 PM EDT) P athologist Signature PT 12.9 (H) 9.4 - 12.5 [facility] LABORATORY INR 1.1 [facility] [...] Resulting Agency Comment Spec In Lab [facility] HEM[facility] ORDERABLES Performing Organization Address City/[facility]/ZIP [place] [address] Gold Tube HOLD (05/15/2022 12:20 PM EDT) athologist Signature Gold Hold Sample in Critical access hospital. [facility] Specimen Anatomical Collection Method Collection Time Receive d Time (Source) Location / / Volume Laterality Blood No Charge / 05/15/2022 12:20 05/15/2022 Unknown PM EDT 12:20 PM EDT Lc RTIPP CHEMISTRY ORDERABLES Performing Organization Address City/State/ZIP [place] [address] CK (05/15/2022 12:00 PM EDT) P athologist Signature CK, Total 87 0 - 200 [facility] unit/L [facility] Specimen Anatomical Collection Method Collection Time Receive d Time (Source) Location / / Volume Laterality Blood Venous Draw / 05/15/2022 12:00 05/15/2022 Unknown PM EDT 12:19 PM EDT Resulting Agency Comment Spec In Lab Fito Summers MD CHEMISTRY ORDERABLES Performing Organization Address City/[facility] [place] [address] Film Library- Storage Only CT Abdomen (05/15/2022 9:32 AM EDT) Specimen (Source) Anatomical Location Collection Method / Collectio n Time Received Time / Laterality Volume Narrative RAD - 05/15/2022 9:32 AM EDT This exam is auto-finalizing. It's purpo se is for storage only. Matt Branham MD [facility] FILM LIBRARY ORDERABLES Performing Organization Address [facility] Code Phon e Number [place], [place] Film Library- Storage Only DX Chest (05/15/2022 9:31 AM EDT) Specimen (Source) Anatomical Location Collection Method / Collectio n Time Received Time / Laterality Volume Narrative RAD - 05/15/2022 9:31 AM EDT This exam is auto-finalizing. It's purpo se is for storage only. Matt Branham MD IM FILM LIBRARY ORDERABLES Performing Organization Address City/[facility]/ZIP Code Phon e Number [place], [place] from Last 3 Months Insurance Payer Benefit Plan / Subscriber ID Effective Phone Address T ype Group Dates MEDICARE MEDICARE PART A [id number] 2007-Pres [id number] [facility] [place] [phone] [facility] [id number] 2007-Pres [phone] [address] [facility] ent [address] [place] [address] Advance Directives Latest Code Status on File [...] capacity to make decision: Yes Care Teams Cowlman Relationship Specialty Start Date End Date Bobby Das MD PCP - General 10/02/[address] [place] [address] [place] [phone]
--- OUTSIDE RECORDS SUMMARY | 2022-07-22 10:25 | XMS_ITS | Encounter Summary ---
:1940 [place] [address] Care Team Providers Name Role Phone Bobby Das MD Primary Care Provider Encounter Details Date Type Department Care Team Description 06/13/2022 Tech Visit Vascular Lab at [facility], Dominga [place] [address] Social History Tobacco Use Types Packs/Day [...] Gastroenterology Negra Collins MD [facility] DR GASTROENTEROLOGY DEPT [place], [place] [address] (Wo rk) 09/05/2022 Appointment Cardiology Trinity Reid MD [facility] CARDIOLOGY [place], [place] [address] (Wo rk) 09/05/2022 Office Visit Cardiology Trinity Reid MD [facility] CARDIOLOGY [place], [place] [address] (Wo rk) documented as of [...] Department: Vascular Surgery Lab [facility]AS[facility] Report Patient: [id number] (ETTA BAH) CPT: 29060 Referring Physician: FITO SUMMERS ?? Phone: Indications: s/p L RN HEMATOLOGY endart. Diabetes mellitus: no Findings: Right ?Pressure [...] disorder documented in this encounter Care Teams President And Cmo Relationship Specialty Start Date End Date Bobby Das MD PCP - General 10/02/[address] [place] [address] [place] [phone] documented as of this encounter
--- OUTSIDE RECORDS SUMMARY | 2022-07-22 10:25 | XMS_ITS | Encounter Summary ---
:1940 Author Organization [facility] Address [place] [address] Care Team Providers Name Role Phone Abby Das MD Primary Care Provider Encounter Details Date Type Department Care Team Description 06/25/2022 Anesthesia Event Gastroenterology at [facility] Abby Alfaro MD [facility] [place] [address] [facility] David Lewis CRNA [facility] [place] [address] [place] [address] Anesthesia Record Procedure Summary Procedure Name [...] vein (antecubital fossa), Mame Peterson RN left; rwgb-caa-ifqmqs catheter system; 18 gauge; Present on admission PIV 06/25/22; 1046; great 06/25/22 1046 by saphenous vein (medial side of Mame Peterson RN leg), right; lqho-nig-ebjkss catheter system; Anatomical Landmarks; 18 gauge; Present [...] Procedure Summary Date: 06/25/22 Room / Location: [facility] ENDO 4 / [facility] ENDOSCOPY Anesthesia Start: 1101 Anesthesia Stop: 1202 Procedures: EGD, UPPER GI ENDOSCOPY (N/A Trunk) COLONOSCOPY; W CONTROL OF BLEEDING, ANY METHOD (N/A Trunk) SMALL BOWEL ENTEROSCOPY (N/A Trunk) Diagnosis: (melena +./-) Surgeons: Giovani Ponce MD Responsible Provider: Abby Alfaro MD Anesthesia Type: MAC ASA Status: 3 All Anesthesia Providers: Anesthesiologist: Abby Alfaro MD AMMONIA NITRATE OPERATOR: David Gill CRNA Vitals Value Taken Time BP 102/85 06/25/22 1240 Temp Pulse Resp 16 06/25/22 1220 SpO2 95 % 06/25/22 1245 Pain Level 0 06/25/22 1220 Vitals shown include unvalidated device data. Patient Location: PACU/[facility] Level of Consciousness: Awake and [...] Date Noted ??? 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 HFrEF (heart failure with reduced ejection [...] IR Biopsy Spine 07/20/2019 Abby Marshall MD [facility] INTERVENTIONL RAD ??? IR VERTEBROPLASTY LUMBAR MULTIPLE LEVELS 07/20/2019 IR Vertebroplasty Lumbar Multiple Levels 07/20/2019 Abby Marshall MD [facility] INTERVENTIONL RAD ??? IR VERTEBROPLASTY THORACIC SINGLE LEVEL 10/25/2020 IR Vertebroplasty Thoracic Single Level 10/25/2020 Matt Chisholm MD [facility] INTERVENTIONL RAD ??? PRO EMBLC/THRMBC FEMORAL POPLITEAL AORTO-ILIAC ARTERY Left 05/15/2022 EMBOLECTOMY OR THROMBECTOMY, FEMOROPOPLITEAL, AORTOILIAC ARTERY BY LEG INCISION (WRVU 19.48) performed by Fito Summers MD at [facility] MAIN OR ??? PRO UPPER GI ENDOSCOPY, CTRL BLEED 05/31/2022 EGD, W CONTROL OF BLEEDING, ANY METHOD performed by Giovani Ponce MD at [facility] ENDOSCOPY ??? PRO UPPER GI ENDOSCOPY, DIAGNOSTIC N/A 05/31/2022 EGD, UPPER GI ENDOSCOPY performed by Giovani Ponce MD at [facility] ENDOSCOPY Social History Tobacco Use [...] risks discussed with patient. Plan discussed with AMMONIA NITRATE OPERATOR. Anesthesia Screening documented in this encounter Plan of Treatment Upcoming Encounters Date Type Specialty Care Team Description 08/08/2022 Office Visit Gastroenterology Negra Collins MD [facility] GASTROENTEROLOGY DEPT [place], [place] [address] (Wo rk) 09/05/2022 Appointment Cardiology Trinity Reid MD [facility] CARDIOLOGY [place], [place] [address] (Wo rk) 09/05/2022 Office Visit Cardiology Trinity Reid MD [facility] CARDIOLOGY [place], [place] [address] (Wo rk) documented [...] mg documented in this encounter Care Teams Motion Picture Set Worker Relationship Specialty Start Date End Date Abby Das MD PCP - General 10/02/[address] [place] [address] [place] [phone] documented as of this encounter
--- OUTSIDE RECORDS SUMMARY | 2022-07-22 10:25 | XMS_ITS | Encounter Summary ---
:1940 Author Organization [facility] Address [facility] [place] [address] Care Team Providers Name Role Phone Bobby Das MD Primary Care Provider Encounter Details Date Type Department Care Team Description 06/24/2022 Telephone Gastroenterology at [facility] Alan August MD [facility] [address] GASTROENTEROLOGY DEPT [phone] [place], [place] [address] (Wo rk) Social History Tobacco [...] data. [facility] [...] MD [facility] GASTROENTEROLOGY DEPT [place], [place] [address] (Wo rk) 09/05/2022 Appointment Cardiology Trinity Reid MD [facility] CARDIOLOGY [place], [place] [address] (Wo rk) 09/05/2022 Office Visit Cardiology Trinity Reid MD [facility] CARDIOLOGY [place], [place] [address] (Wo rk) documented as of this encounter Visit Diagnoses Not on filedocumented in this encounter Care Teams Reed Repairer Relationship Specialty Start Date End Date Bobby Das MD PCP - General 10/02/[address] [place] [address] [place] [phone] documented as of this encounter
--- OUTSIDE RECORDS SUMMARY | 2022-07-22 10:25 | XMS_ITS | Encounter Summary ---
:1940 Author Organization [facility] [place] [address] Care Team Providers Name Role Phone Bobby Das MD Primary Care Provider Encounter Details Date Type Department Care Team Description 06/23/2022 Telephone Gastroenterology at [facility] Alan [place] MD [facility] [place] [address] GASTROENTEROLOGY DEPT [phone] [place], [place] [address] (Wo rk) Social History Tobacco [...] Time: 2:27 AM Referring Location: [facility] Referring Provider: Shahram Urena DC [...] Collins MD [facility] GASTROENTEROLOGY DEPT [place], [place] [address] ( rk) 09/05/2022 Appointment Cardiology Trinity Reid MD [facility] CARDIOLOGY [place], [place] [address] ( rk) 09/05/2022 Office Visit Cardiology Trinity Reid MD [facility] CARDIOLOGY [place], [place] [address] ([facility]) documented as of this encounter Visit Diagnoses Not on filedocumented in this encounter Care Teams Station Cleaning Porter Relationship Specialty Start Date End Date Bobby Das MD PCP - General 10/02/[address] [place] [address] [place] [phone] documented as of this encounter
--- OUTSIDE RECORDS SUMMARY | 2022-07-22 10:25 | XMS_ITS | Encounter Summary ---
:1940 Author Organization [facility] [place] [address] Care Team Providers Name Role Phone Bobby Das MD Primary Care Provider Reason for Visit Reason Comments Skin Lesion Consultation (Routine) - Closed Specialty Diagnoses / Procedures Referred By Contact Refer red To Contact Dermatology Diagnoses Lesion on right eye = hx of skin cancer Bobby Das MD [facility] Dermatology Procedures Lesion on right eye = hx of skin cancer [address] [facility] [address] [place] [address] [place] [address] Fax: Referral ID Status Reason Start Date Expiration Date Visits Requ ested Visits Authorized [id number] Closed 04/22/2022 04/22/2023 1 1 Encounter Details Date Type Department Care Team Description 06/10/2022 Office Visit Dermatology at [facility], Neoplasm of Road unspecified behavior [address] [facility] [place] [address] [address] and skin [phone] DERMATOLOGY [place] [address] Social History Tobacco Use Types Packs/Day Years [...] nevi N SCC N BCC 2015: right quaker, BCC s/p mohs 09/2018: right eyebrow, BCC [...] N/A RTC: Pending pathology []Note routed to disabilities caregiver []Recall placed in scheduling system []Appointment scheduled at checkout Scribe attestation: Sidney Higgins and Loretta Gomez CMA performed the documentation for this encounter in the presence of and acting as a scribe for Noel Burgos MD. I performed the above scribed service and agree with the accuracy of the documentation in this encounter. Reviewed and signed by: Noel Burgos MD Dermatology [facility] Loretta Cohen MD - 06/10/2022 11:00 AM EDT DERMATOLOGY TELEPHONE NOTE Koko Zamora 06/17/2022 [id number] Reason for call: Discuss biopsy results I [...] 08/08/2022 Office Visit Gastroenterology Negar Collins MD [facility] GASTROENTEROLOGY DEPT [place], [place] [address] (Wo bob) 09/05/2022 Appointment Cardiology Trinity Reid MD [facility] CARDIOLOGY [place], [place] [address] (Rebekah rojas) 09/05/2022 Office Visit Cardiology Trinity Reid MD [facility] ER DR CARDIOLOGY [place] [address] (Wo rk) documented as of this encounter [...] Organization Address City/State/ZIP [place] [address] Surgical Pathology Report (06/10/2022 11:43 AM EDT) Component Value Ref Test Analysis [facility] [place] Method Time Signature Surgical [id number] ? Location: [facility] Report The signing pathologist has (i) examined the relevant preparation(s) for the [facility] specimen(s) and (ii) rendered or confirmed the diagnosis(es) . HOSPITAL LABORATORY . ?Surgic al Pathology DIAGNOSIS Right lateral eyebrow, skin shave biopsy: - ??Basal cell carcinoma, no dular pattern, transected at the peripheral and deep specimen edges Electronically signed by: ?Delroy CARCAMO, PhD, Ian Verified: ??06/12/2022 14:33 ??Dermatopathologist Performed at: ??-[facility] Dept. of Pathology, [place], [place] SPECIMEN(S) SUBMITTED A - right lateral [...] Organization Address City/State/ZIP [place] [address] [facility] [address] documented in this encounter Visit Diagnoses Diagnosis Neoplasm of unspecified behavior of bone , soft tissue, and skin documented in this encounter Care Teams Lead Athlete Relationship Specialty Start Date End Date Bobby Das MD PCP - General 10/02/[address] [place] [address] [place] [phone] documented as of this encounter
--- OUTSIDE RECORDS SUMMARY | 2022-07-22 10:25 | XMS_ITS | Encounter Summary ---
:1940 Author Organization [facility] [place] [address] Care Team Providers Name Role Phone Bobby Das MD Primary Care Provider Encounter Details Date Type Department Care Team Description 06/25/2022 Hospital Encounter G[place]enterology [place] [facility] [place] Giovani Ponce, [facility] [place] [address] [facility] [phone] [place] [address] Social History Tobacco Use Types Packs/Day [...] the day after the procedure, use an rqas-ron-ishocss spray to numb your throat. Sucking on [...] occurs, please contact your Doctor. Please call [phone] before 8pm Mon-Fri with problems, questions or concerns. If you call after 8pm or on weekends, call the Hospital at [phone] and ask to speak to the [address] river expedition guide and the extractor plant operator will contact that person for you. When should you call for help? Call [phone] anytime you think you may need emergency [...] any problems. Where can you learn more? [facility] View your After Visit Summary and more online at [email or web address] If you would like to provide feedback about your hospital experience, please call the Office of Patient and Family Relations at . If you have received this After Visit Summary in error, please immediately return it in person to the department, or notify the [facility] Privacy Office by calling toll free at between the hours of 8AM and 5PM to arrange for our retrieval of the documents at no cost to you. Content Version: 12.2 ?? 6391-3831 [employer]. Care instructions adapted under license by [facility]. If you have questions about a medical condition or this instruction, always ask your healthcare professional. [employer] disclaims any warranty or liability for your [...] occurs, please contact your Doctor. Please call [phone] before 8pm Mon-Fri with problems, questions or concerns. If you call after 8pm or on weekends, call the Hospital at [phone] and ask to speak to the [address] river expedition guide and the extractor plant operator will contact that person for you. When should you call for help? Call [phone] anytime you think you may need emergency [...] any problems. Where can you learn more? [facility] View your After Visit Summary and more online at [email or web address] If you would like to provide feedback about your hospital experience, please call the Office of Patient and Family Relations at . If you have received this After Visit Summary in error, please immediately return it in person to the department, or notify the [facility] Privacy Office by calling toll free at between the hours of 8AM and 5PM to arrange for our retrieval of the documents at no cost to you. Content Version: 12.2 ?? 2681-6541 [employer]. Care instructions adapted under license by [facility]. If you have questions about a medical condition or this instruction, always ask your healthcare professional. [employer] disclaims any warranty or liability for [...] 21 (FLONASE) 50 mcg/actuation Nare route daily [place], Suspension as needed. fluorouraciL (EFUDEX) 5 % [...] ischemia I99.8 ??? Coronary artery disease involving la posta coronary artery of la posta heart without angina hudcwiuwH74.10 ??? HFrEF (heart failure with reduced ejection [...] Collins MD [facility] GASTROENTEROLOGY DEPT [place], [place] [address] (Wo rk) 09/05/2022 Appointment Cardiology Trinity Reid MD [facility] CARDIOLOGY [place], [place] [address] (Wo rk) 09/05/2022 Office Visit Cardiology Trinity Reid MD [facility] ER DR CARDIOLOGY [place] [address] (Wo rk) documented as of this [...] 1940 ? Age: 81 ? Order #: [id number] ? Instrument Name: [id number]- [id number] ? Procedure: ? Upper GI endoscopy Indications: ? Recent gastrointestinal bleeding Providers: ? Giovani Ponce, Isi puente, ? Brissa Vee RN, Juvenal ? Confalone Referring MD: ?[facility]: ? Propofol per Anesthesia Complications: ? [...] Endoscope w as ? introduced through the [facility], and ? advanced to the [...] Component Value Ref Test Analysis Performed At [facility] Method Time Signature COLONOSCOPY [facility] PROVATION Endoscopy Procedure Date: 06/25/2022 10:33 AM ? Patient Name: Koko Zamora ? Date of : 1940 ? Age: 81 ? Order #: [id number] ? Instrument Name: [id number]- [id number] ? Procedure: ? Colonoscopy Indications: ? Gastrointestinal [...] Procedure Code(s): ? --- Professional --- ? 73977, Colonoscopy, flexib le; with ? control of [...] of sigmoid ? colon CPT copyright 202 [employer]. All rights reserved. The codes documented in this report are preliminary and upon medical billing coder review may be revised to meet [...] Procedure) documented in this encounter Care Teams Finish Rolls Operator Relationship Specialty Start Date End Date Bobby Das MD PCP - General 10/02/[address] [place] [address] [place] [phone] documented as of this encounter
--- OUTSIDE RECORDS SUMMARY | 2022-07-22 10:25 | XMS_ITS | Encounter Summary ---
:1940 Author Organization [facility] [place] [address] Care Team Providers Name Role Phone Bobby Das MD Primary Care Provider Reason for Referral Consultation (Routine) - Authorized Specialty Diagnoses / Procedures Referred By Contact Refer red To Contact Gastroenterology Diagnoses Adenomatous polyp of colon, unspecified part of colon Colonoscopy 06/25/22, discussed w/Dr. Ponce needs to be seen in clinic to discuss polyp / removal iso plavix & DOAC Isi Celaya MD [facility] 4[facility] D [facility] [place] [address] [place] [address] Phone: Fax: Referral ID Status Reason Start Date Expiration Visits Visits Date Requested Authorized [id number] Authorized Consult, 06/25/2022 06/25/2023 1 1 Test & Treat Scheduling Instructions To be seen in ~2mo Encounter Details Date Type Department Care Team Description 06/25/2022 Orders Only Gastroenterology at [facility] Isi Celaya Adenomatous polyp of [facility] Bobby Mera [place], [place] [address] [facility] part of colon [phone] C[place] [address] Social History Tobacco Use Types Packs/Day Years [...] 08/08/2022 Office Visit Gastroenterology Negra Collins MD [facility] DR GASTROENTEROLOGY DEPT [place] [phone] (Wo rk) 09/05/2022 Appointment Cardiology Trinity Reid MD [facility] CARDIOLOGY [place], [place] [address] (Wo rk) 09/05/2022 Office Visit Cardiology Trinity Reid MD [facility] CARDIOLOGY [place], [place] [address] (Wo rk) Scheduled Referrals Name Type Priority Associated Order Schedule Diagnoses Referral to Outpatient Routine Adenomatous polyp Ordered: Gastroenterology Referral of colon, 06/25/2022 unspecified part of colon documented as of this encounter Visit Diagnoses Diagnosis Adenomatous polyp of colon, unspecified part of colon documented in this encounter Care Teams Nutrition Aide Relationship Specialty Start Date End Date Bobby Das MD PCP - General 10/02/[address] [place] [address] [place] [phone] documented as of this encounter
--- OUTSIDE RECORDS SUMMARY | 2022-07-22 10:25 | XMS_ITS | Encounter Summary ---
:1940 [place] [address] Care Team Providers Name Role Phone Bobby Das MD Primary Care Provider Reason for Referral Consultation (Routine) - Authorized Specialty Diagnoses / Procedures Referred By Contact Refer red To Contact Dermatology Diagnoses Basal cell carcinoma (BCC) of right forehead Loretta Cohen MD Leboeuf, Matthew R, MD [facility] [address] [place] [address] [place] [address] Fax: Referral ID Status Reason Start Date Expiration Visits Visits Date Requested Authorized [id number] Authorized Consult, 06/17/2022 06/17/2023 1 1 Test & Treat Encounter Details Date Type Department Care Team Description 06/17/2022 Orders Only Dermatology at [facility]ta Amanda Basal cell carcinoma Nicol CARCAMO (BCC) of right [address] [place] [address] DERMATOLOGY [place], [place] [address] Social History Tobacco Use Types [...] Collins MD [facility] GASTROENTEROLOGY DEPT [place], [place] [address] (Wo rk) 09/05/2022 Appointment Cardiology Trinity Reid MD [facility] CARDIOLOGY [place], [place] [address] (Wo rk) 09/05/2022 Office Visit Cardiology Trinity Reid MD [facility] CARDIOLOGY [place], [place] [address] (Wo rk) Scheduled Referrals Name Type Priority Associated Order Schedule Diagnoses Referral to Outpatient Referral Routine Basal cell Ordered: Dermatology carcinoma (BCC) of 2 right forehead documented as of this encounter Visit Diagnoses Diagnosis Basal cell carcinoma (BCC) of right fore head documented in this encounter Care Teams Sports Announcer Relationship Specialty Start Date End Date Bobby Das MD PCP - General 10/02/[address] [place] [address] [place] [address] documented as of this encounter
--- OUTSIDE RECORDS SUMMARY | 2022-07-22 10:25 | XMS_ITS | Encounter Summary ---
:1940 Author Organization [facility] [address] Care Team Providers Name Role Phone Bobby Das MD Primary Care Provider Encounter Details Date Type Department Care Team Description 07/01/2022 Telephone Dermatology at [facility], Zainab Dupree, LEATHER GOODS ASSEMBLER [address] [place] [address] Social History Tobacco Use Types Packs/Day [...] [facility] DR GASTROENTEROLOGY DEPT [place], [place] [address] (Wo rk) 09/05/2022 Appointment Cardiology Trinity Reid MD [facility] CARDIOLOGY [place], [place] [address] (Wo rk) 09/05/2022 Office Visit Cardiology Trinity Reid MD [facility] CARDIOLOGY [place], [place] [address] (Wo rk) documented as of this encounter Visit Diagnoses Not on filedocumented in this encounter Care Teams Retrieval Specialist Relationship Specialty Start Date End Date Bobby Das MD PCP - General 10/02/[address] [place] [address] [place] [phone] documented as of this encounter
--- OUTSIDE RECORDS SUMMARY | 2022-07-22 10:25 | XMS_ITS | Encounter Summary ---
:1940 Author Organization [facility] [place] [address] Care Team Providers Name Role Phone Bobby Das MD Primary Care Provider Reason for Referral Diagnostic Test (Routine) - Authorized Specialty Diagnoses / Procedures Referred By Contact Refer red To Contact Cardiology Diagnoses HFrEF (heart failure with reduced ejection fraction) Alan Reid MD [facility] Non-Inv Card Lab Procedures Echocardiogram [place] [address] [place] [address] Fax: Referral ID Status Reason Start Expiration Visits Visits Date Date Requested Authorized [id number] Authorized Specialty 06/13/2022 06/13/2023 1 1 Service Requested Reason for Visit Consultation (Routine) - Closed Specialty Diagnoses / Procedures Referred By Contact Refer red To Contact Cardiology Diagnoses HFrEF (heart failure with reduced ejection fraction) Paroxysmal atrial fibrillation Post-hospital follow-up, s/p PCI with stenting, heart failure Nasrin Parra PA [facility] 4a [facility] [place] [address] [place] [address] Referral ID Status Reason Start Date Expiration Date Visits V isits Requested Authorized [id number] Closed Consult, 05/21/2022 05/21/2023 1 1 Test & Treat Encounter Details Date Type Department Care Team Description 06/13/2022 Office Visit Cardiology at [facility] Alan Reid Coronary artery disease invo lving red devil coronary artery of red devil heart without angina pectoris; [facility] MD Kurt HFrEF (heart failure with reduced ejecti on fraction); Drive [facility] [place] [address] CARDIOLOGY [phone] [place], [place] [address] Social History Tobacco Use Types [...] were not included. [facility] NAOMY [place] [address] CARDIOLOGY OUTPATIENT PROGRESS NOTE PRIMARY CARE PROVIDER: Bobby Das MD REFERRING PROVIDER: Nasrin Parra PROBLEM LIST: Patient Active Problem List Diagnosis ??? 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 Hypertriglyceridemia ??? [...] 3 ??? fluticasone propionate (FLONASE) 50 mcg/actuation [place], Suspension 1 spray by Each Nare route [...] healing well. Markedly diminished left radial pulse. 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 Psych: Appropriate affect. Labs: Lab [...] device therapy possiblyincluding AV node ablation and AIR CONDITIONING SUPERVISOR-D. 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 documented in this encounter Plan of Treatment Upcoming Encounters Date Type Specialty Care Team Description 08/08/2022 Office Visit Gastroenterology Negra Collins MD [facility] DR GASTROENTEROLOGY DEPT [place], [place] [address] (Wo rk) 09/05/2022 Appointment Cardiology Trinity Reid MD [facility] CARDIOLOGY [place], [place] [address] (Wo rk) 09/05/2022 Office Visit Cardiology Trinity Reid MD [facility] CARDIOLOGY [place], [place] [address] (Wo rk) Scheduled Orders Name Type Priority Associated Order Schedule Diagnoses Echocardiogram Echocardiography Routine HFrEF (heart Expected: Transthoracic failure with 08/13/2022, reduced ejection Expires: fraction) 02/12/2023 documented as of this encounter Visit Diagnoses Diagnosis 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
--- OUTSIDE RECORDS SUMMARY | 2022-07-22 10:26 | XMS_ITS | Encounter Summary ---
:1940 [place] [address] Care Team Providers Name Role Phone Bobby Das MD Primary Care Provider Reason for Referral Diagnostic Test (Routine) - Closed Specialty Diagnoses / Procedures Referred By Contact Refer red To Contact Cardiology Diagnoses Paroxysmal atrial fibrillation Nasrin Parra PA [facility] Non-Inv Card Lab Procedures [place] 48 Hrs-15 Days [facility] VASCULAR SURGERY [place], [place] [phone] [place] [phone] Fax: Referral ID Status Reason Start Date Expiration Date Visits V isits Requested Authorized [id number] Closed Specialty 05/21/2022 10/21/2022 1 1 Service Requested Reason for Visit Auth/Cert Specialty Diagnoses / Procedures Referred By Contact Refer red To Contact Diagnoses Limb ischemia LLE thrombus Fito Summers MD [facility] D R [place]ASC[place] [address] Referral ID Status Reason Start Date Expiration Date Visits Requ ested Visits Authorized [id number] 1 1 Encounter Details Date Type Department Care Team Description 05/21/2022 Hospital Encounter Non-Invasive Paroxysma l atrial [place] [address] Social History Tobacco Use Types Packs/Day [...] 04/12/20 21 (FLONASE) 50 mcg/actuation Nare route [place], Suspension daily as needed. fluorouraciL (EFUDEX) 5 [...] Gastroenterology Negra Collins MD [facility] DR GASTROENTEROLOGY DEPT [place], [place] [address] (Wo rk) 09/05/2022 Appointment Cardiology Trinity Ried MD [facility] CARDIOLOGY [place], [place] [address] (Wo rk) 09/05/2022 Office Visit Cardiology Trinity Reid MD [facility] CARDIOLOGY [place], [place] [address] (Wo rk) documented as of [...] fibrillation documented in this encounter Care Teams Food Supervisor Relationship Specialty Start Date End Date Bobby Das MD PCP - General 10/02/[address] [place] [address] [place] [phone] documented as of this encounter
--- OUTSIDE RECORDS SUMMARY | 2022-07-22 10:26 | XMS_ITS | Encounter Summary ---
:1940 Author Organization [facility] [place] [address] Care Team Providers Name Role Phone Bobby Das MD Primary Care Provider Encounter Details Date Type Department Care Team Description 05/24/2022 Telephone Cardiology [place] [facility] Kourtney Jimenez, RN [facility] [place] [address] Social History Tobacco Use Types Packs/Day [...] Gastroenterology Negra Collins MD [facility] DR GASTROENTEROLOGY DEPT [place], [place] [address] (Wo rk) 09/05/2022 Appointment Cardiology Trinity Reid MD [facility] ER CARDIOLOGY [place], [place] [address] (Wo rk) 09/05/2022 Office Visit Cardiology Trinity Reid MD [facility] ER CARDIOLOGY [place], [place] [address] (Wo rk) documented as of this encounter Visit Diagnoses Not on filedocumented in this encounter Care Teams Tong Carrier Relationship Specialty Start Date End Date Bobby Das MD PCP - General 10/02/[address] [place] [address] [place] [address] documented as of this encounter
--- OUTSIDE RECORDS SUMMARY | 2022-07-22 10:26 | XMS_ITS | Encounter Summary ---
:1940 Author Organization [facility] [place] [address] Care Team Providers Name Role Phone Bobby Das MD Primary Care Provider Reason for Visit Auth/Cert Specialty Diagnoses / Procedures Referred By Contact Refer red To Contact Diagnoses GIB (gastrointestinal bleeding) Abe [facility] [place] [address] Referral ID Status Reason Start Date Expiration Date Visits Requ ested Visits Authorized [id number] 1 1 Encounter Details Date Type Department Care Team Description 05/31/2022 Anesthesia Event Gastroenterology at [facility] Elmer Johnson MD [facility] [place] [address] [facility] Yogi Machado CRNA [facility] [place] [address] [place] [address] Anesthesia Record Procedure Summary Procedure Name [...] fossa), DION Carpenter Alysia O, RN right; xirw-zdz-oeabhq catheter system; 20 gauge; no longer indicated, [...] Date: 05/31/22 Room / Location: [facility] ENDO 3 / [facility] ENDOSCOPY Anesthesia Start: 1603 Anesthesia Stop: 165 Procedures: EGD, UPPER GI ENDOSCOPY (N/A Trunk) EGD, W CONTROL OF BLEEDING, ANY METHOD Diagnosis: (melena) Surgeons: Giovani Ponce MD Responsible Provider: Elmer Johnson MD Anesthesia Type: MAC ASA Status: 3 All Anesthesia Providers: Anesthesiologist: Elmer Johnson MD ADVERTISING REPRESENTATIVE: Yogi Dawkins CRNA Vitals Value Taken Time BP 95/62 05/31/22 1720 Temp Pulse Resp 18 05/31/22 1720 SpO2 99 % 05/31/22 1720 Pain Level 0 05/31/22 1720 [facility] Level of Consciousness: Awake and Alert [...] Spine 07/20/2019 Bobby Marshall MD [facility] INTERVENTIONL RAD ??? IR VERTEBROPLASTY LUMBAR MULTIPLE LEVELS 07/20/2019 IR Vertebroplasty Lumbar Multiple Levels 07/20/2019 Bobby Marshall MD [facility] INTERVENTIONL RAD ??? IR VERTEBROPLASTY THORACIC SINGLE LEVEL 10/25/2020 IR Vertebroplasty Thoracic Single Level 10/25/2020 Matt Chisholm MD [facility] INTERVENTIONL RAD ??? PRO EMBLC/THRMBC FEMORAL POPLITEAL AORTO-ILIAC ARTERY Left 05/15/2022 EMBOLECTOMY OR THROMBECTOMY, FEMOROPOPLITEAL, AORTOILIAC ARTERY BY LEG INCISION (WRVU 19.48) performed by Fito Summers MD at [facility] MAIN OR ??? PRO UPPER GI ENDOSCOPY, CTRL BLEED 05/31/2022 EGD, W CONTROL OF BLEEDING, ANY METHOD performed by Giovani Ponce MD at [facility] ENDOSCOPY ??? PRO UPPER GI ENDOSCOPY, DIAGNOSTIC N/A 05/31/2022 EGD, UPPER GI ENDOSCOPY performed by Giovani Ponce MD at [facility] ENDOSCOPY Social History Tobacco Use ??? [...] risks discussed with patient. Plan discussed with ADVERTISING REPRESENTATIVE. Anesthesia Screening documented in this encounter Plan of Treatment Upcoming Encounters Date Type Specialty Care Team Description 08/08/2022 Office Visit Gastroenterology Negra Collins MD [facility] GASTROENTEROLOGY DEPT [place], [place] [address] (Wo rk) 09/05/2022 Appointment Cardiology Trinity Reid MD [facility] CARDIOLOGY [place], [place] [address] (Wo rk) 09/05/2022 Office Visit Cardiology Trinity Reid MD [facility] CARDIOLOGY [place], [place] [address] (Wo rk) documented as of [...] mg documented in this encounter Care Teams Branch Retail Executive Relationship Specialty Start Date End Date Bobby Das MD PCP - General 10/02/[address] [place] [address] [place] [phone] documented as of this encounter
--- OUTSIDE RECORDS SUMMARY | 2022-07-22 10:26 | XMS_ITS | Encounter Summary ---
:1940 Author Organization [facility] [place] [address] Care Team Providers Name Role Phone Bobby Das MD Primary Care Provider Reason for Visit Reason Comments Dizziness Auth/Cert Specialty Diagnoses / Procedures Referred By Contact Refer red To Contact Diagnoses GIB (gastrointestinal bleeding) Abe [facility] [place] [address] Referral ID Status Reason Start Date Expiration Date Visits Requ ested Visits Authorized [id number] 1 1 Encounter Details Date Type Department Care Team Description 05/31/2022 Surgery Gastroenterology at [facility] Giovani Ponce, EGD, UPPER GI [facility] Bobby gilliland [place] [address] [facility] [phone] [place] [address] Social History Tobacco [...] switching to a different bloodthinner with the garage door installer outpatient. Call your doctor or seek medical [...] switchingto a different blood thinner with your garage door installer as an outpatient Stopped Medications - Aspirin - Valsartan - Speak with your garage door installer about the timing of restarting this Follow-up Appointments Future Appointments Date Time Provider Department Center 06/10/2022 11:00 AM Loretta Cohen MD [facility] 06/13/2022 7:30 AM Edson [place]os [place] [facility] VAS LAB [facility] 06/13/2022 8:00 AM Fito Summers MD [facility] V SURG [facility] 06/13/2022 10:00 AM Alan Reid MD [facility] CARD [address] [place] [address] Your Inpatient Medical Team at [facility] Name(s) of your inpatient provider(s): Dr. John Ames For questions regarding issues relating to your hospitalization on the Hospital Medicine Service, please contact your inpatient physician through the [facility] Primary Care Physician [phone]. Issues after hours and on weekends will be handled by the Hospitalist staff on-call. Your Primary Care Provider Bobby Das MD [phone] Future Appointments and Orders Future Appointments and Orders Future Appointments Provider Department Dept Phone 06/10/2022 11:00 AM Loretta Cohen MD Dermatology at [facility] Arrive at: [employer]ary Surface [employer] [address] [place] [phone] 06/13/2022 7:30 AM Edson [place]os [place] Vascular Lab at [facility] Arrive at: Rotary Surface Grinder Area 06/13/2022 8:00 AM Fito Summers MD Vascular Surgery at [facility] Arrive at: [facility] Surface [facility] Area 06/13/2022 10:00 AM Alan Reid MD Cardiology at [facility] Arrive at: Rotary Surface Grinder Area 4A [phone] For questions regarding this document or issues relating to this hospitalization on the Medical Service, please contact your inpatient physician through the [facility] Primary Care Physician . Issues after hours and on weekends [...] switching to a different bloodthinner with the garage door installer outpatient. Call your doctor or seek medical [...] switchingto a different blood thinner with your garage door installer as an outpatient Stopped Medications - Aspirin - Valsartan - Speak with your garage door installer about the timing of restarting this Follow-up Appointments Future Appointments Date Time Provider Department Center 06/10/2022 11:00 AM Loretta Cohen MD [facility] 06/13/2022 7:30 AM Edson Lagos [...] the [facility] Primary Care Physician [phone]. Issues after hours and on weekends will be handled by the Hospitalist staff on-call. Your Primary Care Provider Bobby Das MD [phone] documented in this encounter Medications at Time [...] 04/12/20 21 (FLONASE) 50 mcg/actuation Nare route [place], Suspension daily as needed. fluorouraciL (EFUDEX) 5 [...] spent >30 minutes (Day of Discharge Code 03003) involved in the final examination of the [...] from the original note were not included. [facility] Progress Note [place] Team - Pager #[phone] Admit Date: 05/31/2022 Name: Koko Zamora : [...] Kurt Ames MD Internal Medicine, PGY-1 Medicine [place] Team #[id number] Associated attestation - John Jolley MD - 06/01/2022 5:02 PM EDT [facility] Medicine -- Attending Progress Note Please [...] from the original note were not included. [facility] (#[id number]) History and Physical Patient info: Name: Koko Zamora : 1940 PCP: Bobby Das MD PCP phone number: [phone] Date of Admission: 05/31/2022 ( Hospital Day [...] 11 ??? fluticasone propionate (FLONASE) 50 mcg/actuation [place], Suspension as needed. ??? fluorouraciL (EFUDEX) 5 [...] Gas) No results found for: PHART, PO2ART, RWF4PXH, UNE3YIG Microbiology: N/A Pertinent radiology/diagnostic studies: Recent prior [...] Status: Full Arpita Valle MD, PGY-3 05/31/2022 [facility] # [id number] Attending Staff Admission Documentation [...] 05/31/2022 3:58 PM EDT [facility]. Upon arrival to [...] 10:50 AM EDT Pt brought to by radio disc jockey Brittany Ramirez MD - 05/31/2022 10:40 AM [...] questions please contact the health customer care assistant that requested your imaging first. Electronically signed by: Jl Zuluaga MD, [facility] ([phone]), at 05/31/2022 2:39 PM XR Chest PA [...] questions please contact the health customer care assistant that requested your imaging first. Electronically signed by: Alan Brink MD, [facility] ([phone]), at 05/31/2022 11:33 AM ED Course as [...] recommendations from Brittany Tavares MD Resident 05/31/22 [id number] Associated attestation - Regina Hinds MD - [...] soft blood pressures, MD made aware. 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 Patient reported [...] original note were not included. [facility] [place] [address] INPATIENT CARDIOLOGY CONSULT NOTE Date of Consultation: 06/01/2022 Admit Date: 05/31/2022 Place of Service: IS86/IS86-A Referring Attending: REGINA HINDS COLEMAN W FRIEDMAN, HARLEY P Responsible Bond Manager: Dr. Rizo Hospital Day 1 day Reason for Consult: Antiplatelet/anticoagulation s/p pci and afib, with GI bleed HPI: Koko Zamora is a 81 y.o. male with a cardiac history significant for remote mitral valve repair (2000), pre-DM, HLD, significant alcohol use, tobacco use, Afib on xarelto, ischemic systolic heartfailure (recent [facility] 05/20/2022 with 2V disease OM1 and [...] time ??? fluticasone propionate (FLONASE) 50 mcg/actuation [place], Suspension 1 spray by Each Nare route [...] 3.5 guiding catheter and a 3.5 Fr [facility] [place] [address] 20 Mhz. Imaging was successful. Image [...] A premounted 2.75 x 30 mm Rudy [place] (AMPARO) was deployed with a maximum inflation [...] Hb drop. Unknown source. has had a [facility] with stent placed and revascularization of [...] questions please contact the health customer care assistant that requested your imaging first. Electronically signed by: Jl Zuluaga MD, [facility] ([phone]), at 05/31/2022 2:39 PM [place] 48 Hrs-15 [...] questions please contact the health customer care assistant that requested your imaging first. Electronically signed by: Alan Brink MD, [facility] ([phone]), at 05/31/2022 11:33 AM LABS Recent Labs [...] on xarelto, ischemic systolic heart failure (recent [facility] 05/20/2022 with 2V disease OM1 and [...] MD [facility] Card Fixer, PGY-5 Inpatient Cardiology Consults Pager #[phone] Please check Qgenda for on-call cardiology consults [...] A&Ox 4. On room air. VSS. 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 Adequate urine output, urinal at bedside, [...] care in [place] must abide by [place] law. The hierarchy [...] (i) The agent with financial power of insurance attorney or a conservator appointed in accordance [...] walker - rolling Home Address confirmed as: [address] [place] [phone] Social & Family Supports: All names listed below confirmed with patient as current and correct Extended Emergency Contact Information Primary Emergency Contact: Ursula Zamora Address: [address] [place] [phone] [facility] Relation: Spouse Current Care Provided [...] *No Product type* / Secondary Insurance: [facility] Secondary Insurance? (Only Medicare A&B): Yes ; Prescription Coverage: Yes Preferred Pharmacy: [id number] [place], [place] - [address] [place] [address] [place] [id number] [place] Status: Patient is a : No Primary Care Provider: Bobby Das MD [phone] Patient/Caregiver Goals of Treatment: Patient plans to [...] with transition of care planning. ASH [place] Combustion Engineer [facility] Specialties Pager- [phone] Plan of [...] Operative Note Patient Name: Koko Zamora : [id number] MR#: [id number] Case Date: 05/31/2022 Surgeon: Surgeon(s) and Role: [...] stomach. He has had colonoscopies before in [place] - notes first ever he had 6 [...] sounds, tympanic to percussion RECTAL: performed with commercial collections specialist present, no overt masses, fissures, external hemorrhoids, [...] questions please contact the health customer care assistant that requested your imaging first. Electronically signed by: Alan Brink MD, [facility] ([phone]), at 05/31/2022 11:[address] Abdomen & [...] [facility] DE[facility] [place], [place] [address] (Wo rk) 09/05/2022 Appointment Cardiology Trinity Reid MD [facility] CARDIOLOGY [place], [place] [address] (Wo rk) 09/05/2022 Office Visit Cardiology Trinity Reid MD [facility] CARDIOLOGY [place], [place] [address] (Wo rk) documented as [...] Abs (ANC) 4.44 1.70 - [facility] 6.10 [facility] x[facility](3[facility] LABORATORY Lymphocytes % 25.2 % [facility] LABORATORY Lymphocytes Abs 1.8 0.9 - 3.2 [facility] x10(3)/[facility] LABORATORY Monocytes % 10.0 % [facility] LABOR[facility] Monocyte Abs 0.7 0.3 - 0.9 [facility] x10(3)/[facility] LABORATORY Eosinophils % 2.1 % [facility] Eosinophils Abs 0.2 0.0 - 0.4 [facility] x10(3)/[facility] LABORATORY Basophils % 0.7 % [facility] Basophils Abs 0.0 0.0 - 0.1 [facility] x10(3)/[facility] LABORATORY Immature Gran % 0.70 % [facility] [...] Organization Address City/State/[place] [address] (ABNORMAL) Hemogram (06/02/2022 8:20 AM EDT) Analysis Performed At Patho logist Time Signature WBC 7.2 4.0 - 9.5 [facility] x10(3)/[facility] LABORATORY RBC 2.74 (L) 4.58 - [facility] 5.54 [facility](6[facility] LABORATORY Hemoglobin 8.7 (L) 13.7 - [facility] 16.5 g/dL [facility] LABORATORY Hematocrit 25.7 (L) 40.5 - [facility] [place] 48.5 % [facility] LABORATORY MCV 93.8 (H) 82.9 - [facility] [place] 93.1 [facility] LABORATORY MCH 31.8 27.5 - [facility] [place] 32.1 pg [facility] LABORATORY MCHC 33.9 32.0 - [place] [place] 35.7 g/dL [facility] LABORATORY Platelets 260 145 - 357 [facility] x10(3)/[facility] LABORATORY RDWSD 51.0 (H) 36.0 - [facility] [place] 45.0 [facility] LABORATORY RDWCV 14.9 (H) 11.4 - [facility] XIAO 13.8 % [facility] LABORATORY MPV 10.0 7.6 - 12.9 [facility] LABORATORY nRBC % Auto 0.0 % [facility] LABORATORY nRBC Abs Auto 0.000 0.000 - [facility] 0.000 [facility](3[facility] LABORATORY Specimen Anatomical Collection Method Collection Time Receive d Time (Source) Location / / Volume Laterality Blood 06/02/2022 8:20 AM 8:25 EDT AM EDT Resulting Agency Comment Spec In Lab Kurt Ames MD HEMATOLOGY ORDERABLES Performing Organization Address City/State/[place] [address] Heparin (unfractionated) Level (06/02/2022 6:30 AM EDT) P athologist Signature Heparin UFH 0.39 IU/mL [facility] LABORATORY Comment: Heparin [...] Victor MD HEMATOLOGY ORDERABLES Performing Organization Address City/[facility]/ZIP Code Phon e Number [address] Heparin (unfractionated) Level (06/02/2022 12:30 AM EDT) athologist Signature Heparin UFH 0.81 IU/mL [facility] LABORATORY Comment: Heparin [...] Victor MD HEMATOLOGY ORDERABLES Performing Organization Address City/[facility]/[place] [address] Magnesium (06/02/2022 12:30 AM EDT) P athologist Signature Magnesium 0.83 0.69 - 1.07 [facility] mmol/L [facility] LABORATORY Specimen Anatomical Collection Method Collection Time Receive d Time (Source) Location / / Volume Laterality Blood 06/02/2022 12:30 06/02/2022 AM EDT 12:40 AM EDT Resulting Agency Comment Spec In Lab Mahendra Victor MD CHEMISTRY ORDERABLES Performing Organization Address City/State/[place] [address] (ABNORMAL) Basic Metabolic Panel (non-fasting) (06/02/2022 12:30 AM EDT) P athologist Signature Glucose Lvl 151 65 - 199 [facility] mg/dL [facility] LABORATORY Comment: Diabetes: >=200 mg/dL plus symp [...] Organization Address City/State/[place] [address] (ABNORMAL) Differential, Automated (06/01/2022 7:29 PM EDT) athologist Signature Neutrophils % 68.8 % [facility] LABORATORY Neutr Abs (ANC) 5.34 1.70 - [facility] 6.10 [facility] LABORATORY Lymphocytes % 19.6 % [facility] LABORATORY Lymphocytes Abs 1.5 0.9 - 3.2 [facility] x10(3)/[facility] LABORATORY Monocytes % 8.1 % [facility] LABORATORY Monocyte Abs 0.6 0.3 - 0.9 [facility] x10(3)/[facility] LABORATORY Eosinophils % 1.8 % [facility] LABORATORY Eosinophils Abs 0.1 0.0 - 0.4 [facility] x10(3)/[facility] LABORATORY Basophils % 0.8 % [facility] LABORATORY Basophils Abs 0.1 0.0 - 0.1 [facility] x10(3)/[facility] LABORATORY Immature Gran % 0.90 % NOR[facility] [...] Organization Address City/State/[place] [address] (ABNORMAL) Hemogram (06/01/2022 7:29 PM EDT) Analysis Performed At Patho logist Time Signature WBC 7.8 4.0 - 9.5 [facility] LABORATORY RBC 2.65 (L) 4.58 - [facility] 5.54 [facility] LABORATORY Hemoglobin 8.3 (L) 13.7 - [facility] 16.5 g/dL [facility] LABORATORY Hematocrit 24.8 (L) 40.5 - [facility] 48.5 % [facility] LABORATORY MCV 93.6 (H) 82.9 - [facility] 93.1 [facility] LABORATORY MCH 31.3 27.5 - [facility] 32.1 pg [facility] LABORATORY MCHC 33.5 32.0 - [facility] 35.7 g/dL [facility] LABORATORY Platelets 263 145 - 357 [facility] x10(3)/[facility] LABORATORY RDWSD 52.8 (H) 36.0 - [facility] 45.0 [facility] LABORATORY RDWCV 15.4 (H) 11.4 - [facility] XIAO 13.8 % [facility] LABORATORY MPV 10.4 7.6 - 12.9 [facility] nRBC % Auto 0.0 % [facility] LABORATORY nRBC Abs Auto 0.000 0.000 - [facility] 0.000 [facility] x[facility](3[facility] LABORATORY Specimen Anatomical Collection Method Collection Time Receive d Time (Source) Location / / Volume Laterality Blood 06/01/2022 7:29 PM 2 7:29 EDT PM EDT Resulting Agency Comment Spec In Lab Kurt Ames MD HEMATOLOGY ORDERABLES Performing Organization Address City/State/ZIP Code Phon e Number [address] Heparin (unfractionated) Level (06/01/2022 7:29 PM EDT) P athologist Signature Heparin UFH 0.81 IU/mL [facility] LABORATORY Comment: Heparin [...] Address City/State/ZIP Code Phon e Number [address] (ABNORMAL) Heparin (unfractionated) Level (06/01/2022 11:32 AM EDT) Patholo gist Method Time Signature Heparin UFH 1.05 IU/mL [facility] (Critical) [facility] LABORATORY Comment: Critical Result called by ?? [...] Organization Address City/State/[place] [address] (ABNORMAL) Differential, Automated (06/01/2022 5:56 AM EDT) [facility] Method Time Signature Neutrophils % 62.7 % [facility] LABORATORY Neutr Abs (ANC) 6.11 (H) 1.70 - [facility] 6.10 [facility] x[facility](3[facility] LABORATORY Lymphocytes % 23.5 % [facility] LABORATORY Lymphocytes Abs 2.3 0.9 - 3.2 [facility] x10(3)/[facility] LABORATORY Monocytes % 10.0 % [facility] LABORATORY Monocyte Abs 1.0 (H) 0.3 - 0.9 [facility] x10(3)/[facility] LABORATORY Eosinophils % 2.2 % [facility] LABORATORY Eosinophils Abs 0.2 0.0 - 0.4 [facility] x10(3)/[facility] LABORATORY Basophils % 0.9 % [facility] LABORATORY Basophils Abs 0.1 0.0 - 0.1 [facility] x10(3)/[facility] LABORATORY Immature Gran % 0.70 % NOR[facility] [...] Organization Address City/State/[place] [address] (ABNORMAL) Hemogram (06/01/2022 5:56 AM EDT) Analysis Performed At Patho logist Time Signature WBC 9.7 (H) 4.0 - 9.5 [facility] x10(3)/[facility] LABORATORY RBC 2.83 (L) 4.58 - [facility] LABORATORY Hemoglobin 9.0 (L) 13.7 - [facility] 16.5 g/dL [facility] LABORATORY Hematocrit 26.7 (L) 40.5 - [facility] 48.5 % [facility] LABORATORY MCV 94.3 (H) 82.9 - [facility] 93.1 [facility] LABORATORY MCH 31.8 27.5 - [facility] 32.1 pg [facility] LABORATORY MCHC 33.7 32.0 - [facility] 35.7 g/dL [facility] LABORATORY Platelets 250 145 - 357 [facility] x10(3)/[facility] LABORATORY RDWSD 54.3 (H) 36.0 - [facility] 45.0 [facility] LABORATORY RDWCV 15.9 (H) 11.4 - [facility] 13.8 % [facility] LABORATORY MPV 10.5 7.6 - 12.9 [facility] LABORATORY nRBC % Auto 0.0 % [facility] LABORATORY nRBC Abs Auto 0.000 0.000 - [facility] 0.000 [facility] x[facility](3[facility] LABORATORY Specimen Anatomical Collection Method Collection Time Receive d Time (Source) Location / / Volume Laterality Blood 06/01/2022 5:56 AM 2 6:05 EDT AM EDT Resulting Agency Comment Spec In Lab Arpita Valle MD HEMATOLOGY ORDERABLES Performing Organization Address City/State/[place] [address] Heparin (unfractionated) Level (06/01/2022 4:30 AM EDT) P athologist Signature Heparin UFH 0.68 IU/mL [facility] LABORATORY Comment: Heparin [...] Victor MD HEMATOLOGY ORDERABLES Performing Organization Address City/[facility]/[place] [address] (ABNORMAL) Urinalysis with reflex Culture (06/01/2022 4:00 AM EDT) Patholo gist Method Time Signature Glucose UA 500 Negative [facility] (Critical) mg/dL [facility] LABORATORY Comment: Urinalysis result NOT critical without [...] 8.0 [facility] LABORATORY Blood UA Negative Negative mg/dL [facility] LABORATORY Ketones UA Negative Negative mg/dL [facility] LABOR[facility]ORY Nitrite UA Negative Negative [facility] LABORATORY Leukocytes UA Negative Negative [facility] LABORATORY Appearance UA Clear Clear [facility] LABORATORY Spec [place] UA >=1.030 (A) 1.005 - 1.030 [facility] LABORATORY Color UA Yellow Yellow [facility] LABORATORY Culture Reflexed No [facility] LABORATORY Specimen Anatomical Collection Method Collection Time Receive d Time (Source) Location / / Volume Laterality Clean Catch 06/01/2022 4:00 AM 2 4:26 Urine EDT AM EDT Resulting Agency Comment Spec In Lab Mahendra Victor MD URINE ORDERABLES Performing Organization Address City/[facility]/ZIP Code Phon e Number [address] Magnesium (06/01/2022 1:00 AM EDT) athologist Signature Magnesium 0.93 0.69 - 1.07 [facility] mmol/L [facility] LABORATORY Specimen Anatomical Collection Method Collection Time Receive d Time (Source) Location / / Volume Laterality Blood 06/01/2022 1:00 AM 2 1:37 EDT AM EDT Resulting Agency Comment Spec In Lab Mahendra Victor MD CHEMISTRY ORDERABLES Performing Organization Address City/[facility] Phon e Number [address] (ABNORMAL) Basic Metabolic Panel (non-fasting) (06/01/2022 1:00 AM EDT) athologist Signature Glucose Lvl 148 65 - 199 [facility] mg/dL [facility] LABORATORY Comment: Diabetes: >=200 mg/dL plus symp toms BUN 23 (H) 10 - 20 mg/dL [facility] LABORATORY Creatinine 0.78 (L) 0.80 - 1.50 mg/dL [facility] LABORATORY Sodium 141 135 - 145 mmol/L [facility] LABORATORY Potassium 4.0 3.5 - 5.0 mmol/L [facility] LABORATORY [...] LABORATORY Calcium 8.6 8.5 - 10.5 mg/dL [facility] LABORATORY Estimated GFR 91 >=60 mL/min/1.73 [...] Organization Address City/State/[place] [address] (ABNORMAL) Differential, Automated (06/01/2022 12:00 AM EDT) P athologist Signature Neutrophils % 64.6 % [facility] LABORATORY Neutr Abs (ANC) 5.60 1.70 - [facility] 6.10 [facility] x[facility](3[facility] LABORATORY Lymphocytes % 22.4 % [facility] LABORATORY Lymphocytes Abs 1.9 0.9 - 3.2 [facility] x10(3)/[facility] LABORATORY Monocytes % 9.5 % [facility] LABORATORY Monocyte Abs 0.8 0.3 - 0.9 [facility] x10(3)/[facility] LABORATORY Eosinophils % 2.1 % [facility] LABORATORY Eosinophils Abs 0.2 0.0 - 0.4 [facility] x10(3)/[facility] LABORATORY Basophils % 0.6 % [facility] LABORATORY Basophils Abs 0.0 0.0 - 0.1 [facility] x10(3)/[facility] LABORATORY Immature Gran % 0.80 % [facility] [...] - 0.04 x10(3)/[facility] LABORATORY Specimen (Source) Anatomical Collection Method Collection Time Re ceived Time Location / / Volume Laterality Blood 06/01/2022 06/01/2022 12:1 0 AM EDT Resulting Agency Comment Spec In Lab Arpita Valle MD HEMATOLOGY ORDERABLES Performing Organization Address City/State/[place] [address] (ABNORMAL) Hemogram (06/01/2022 12:00 AM EDT) Analysis Performed At Patho logist Time Signature WBC 8.7 4.0 - 9.5 [facility] x10(3)/[facility] LABORATORY RBC 2.77 (L) 4.58 - [facility] 5.54 [facility] x10(6)/[facility] LABORATORY Hemoglobin 8.6 (L) 13.7 - [place] 16.5 g/dL [facility] LABORATORY Hematocrit 25.7 (L) 40.5 - [facility] 48.5 % [facility] LABORATORY MCV 92.8 82.9 - [facility]1 [facility] LABORATORY MCH 31.0 27.5 - [place] 32.1 pg [facility] LABORATORY MCHC 33.5 32.0 - [facility] 35.7 g/dL [facility] LABORATORY Platelets 260 145 - 357 [facility] x10(3)/[facility] LABORATORY RDWSD 51.9 (H) 36.0 - [facility] 45.0 [facility] LABORATORY RDWCV 15.5 (H) 11.4 - [facility] 13.8 % [facility] LABORATORY MPV 10.4 7.6 - 12.9 [facility] LABORATORY nRBC % Auto 0.0 % [facility] LABORATORY nRBC Abs Auto 0.000 0.000 - [facility] 0.000 [facility] x10(3)/[facility] LABORATORY Specimen (Source) Anatomical Collection Method Collection Time Re ceived Time Location / / Volume Laterality Blood 06/01/2022 06/01/2022 12:1 0 AM EDT Resulting Agency Comment Spec In Lab Arpita Valle MD HEMATOLOGY ORDERABLES Performing Organization Address City/State/[place] [address] (ABNORMAL) Differential, Automated (05/31/2022 9:17 PM EDT) P athologist Signature Neutrophils % 59.6 % [facility] LABORATORY Neutr Abs (ANC) 3.98 1.70 - [facility] 6.10 [facility] x10(3)/[facility] LABORATORY Lymphocytes % 27.5 % [facility]OR[facility]ORY Lymphocytes Abs 1.8 0.9 - 3.2 [facility] x10(3)/[facility] LABORATORY Monocytes % 9.1 % [facility] LABOR[facility] Monocyte Abs 0.6 0.3 - 0.9 [facility] x10(3)/[facility] LABORATORY Eosinophils % 2.4 % [facility] Eosinophils Abs 0.2 0.0 - 0.4 [facility] x10(3)/[facility] LABORATORY Basophils % 0.7 % [facility] Basophils Abs 0.0 0.0 - 0.1 [facility] x10(3)/[facility] LABORATORY Immature Gran % 0.70 % [facility] [...] Organization Address City/State/[place] [address] (ABNORMAL) Hemogram (05/31/2022 9:17 PM EDT) Analysis Performed At Patho logist Time Signature WBC 6.7 4.0 - 9.5 [facility] x10(3)/[facility] LABORATORY RBC 2.74 (L) 4.58 - [facility] 5.54 [facility] x10(6)/[facility] LABORATORY Hemoglobin 8.5 (L) 13.7 - [facility] 16.[facility] g/dL [facility] LABORATORY Hematocrit 25.7 (L) 40.5 - [facility] 48.5 % [facility] LABORATORY MCV 93.8 (H) 82.9 - [facility] 93.1 fL [facility] LABORATORY MCH 31.0 27.5 - [facility] 32.1 pg [facility] LABORATORY MCHC 33.1 32.0 - [facility] [place] 35.7 g/dL [facility] LABORATORY Platelets 233 145 - 357 [facility] [place] x10(3)/[facility] LABORATORY RDWSD 51.9 (H) 36.0 - [place] [place] 45.0 [facility] RDWCV 15.3 (H) 11.4 - [facility] XIAO 13.8 % [facility] MPV 10.3 7.6 - 12.9 [facility] XIAO [facility] LABORATORY nRBC % Auto 0.0 % [facility] nRBC Abs Auto 0.000 0.000 - [facility] 0.000 [facility] x10(3)/[facility] LABORATORY Specimen Anatomical Collection Method Collection Time Receive d Time (Source) Location / / Volume Laterality Blood 05/31/2022 9:17 PM 9:25 EDT PM EDT Resulting Agency Comment Spec In Lab Arpita Valle MD HEMATOLOGY ORDERABLES Performing Organization Address City/State/[place] [address] Transfuse RBC (05/31/2022 7:36 PM EDT) Regina Hinds MD NURSING TREATMENT ORDERABLES - BLOOD ADMIN Transfuse RBC (05/31/2022 7:36 PM EDT) Regina Hinds MD NURSING TREATMENT ORDERABLES - BLOOD ADMIN UPPER GI ENDOSCOPY (05/31/2022 3:37 PM EDT) Component Value Ref Test Analysis Performed At [facility] Range Method Time Signature UPPER GI [facility] PROVATION ENDOSCOPY Endoscopy Procedure Date: 05/31/2022 3:37 PM ? Patient Name: Koko Zamora ? Date of : 1940 ? Age: 81 ? Order #: [id number] ? Instrument Name: [id number] ? Procedure: ? Upper GI endoscopy Indications: [...] Procedure Code(s): ? --- Professional --- ? 26749, Esophagogastroduode noscopy, ? flexible, transoral; with control [...] stomach ? and duodenum CPT copyright 2021 [employer]. All rights reserved. The codes documented in this report are preliminary and upon vp communications review may be revised to meet current [...] questions please contact the health customer care assistant that requested your imaging first. ? Electronically signed by: Jl walter MD, [facility] ([phone]), at 05/31/2022 2:39 PM Narrative 05/31/2022 2:39 PM EDT EXAMINATION: CT ABDOMEN AND PELVIS WWO CONTRAST (GI BLEED) CLINICAL HISTORY: Significant Hb drop. U nknown source. has had a [facility] with stent placed and revascularization of [...] enlarged lymph nodes. Vasculature: Patent common iliac, paving bed maker al iliac, and common femoral arteries bilaterally. [...] enlarged lymph nodes. Vasculature: Patent common iliac, paving bed maker al iliac, and common femoral arteries bilaterally. [...] questions please contact the health customer care assistant that requested your imaging first. Regina Hinds MD G CT ORDERABLES Type and Screen Validity (05/31/2022 1:43 PM EDT) [facility] gist Method Time Signature T&S only valid [facility] at [facility] LABORATORY Comment: This Type and Screen result is only valid at the [facility] Specimen Anatomical Collection Method Collection Time Receive d Time (Source) Location / / Volume Laterality Blood 05/31/2022 1:43 PM 2 1:57 EDT PM EDT Resulting Agency Comment Spec In Lab Regina Hinds MD BLOOD BANK ORDERABLES Performing Organization Address City/State/[place] [address] ABORH Recheck Status (05/31/2022 1:43 PM EDT) [facility] Method Time Signature ABORH Type Completed [facility] LABORATORY Specimen Anatomical Collection Method Collection Time Receive d Time (Source) Location / / Volume Laterality Blood 05/31/2022 1:43 PM 2 1:57 EDT PM EDT Resulting Agency Comment Spec In Lab Regina Hinds MD BLOOD BANK ORDERABLES Performing Organization Address City/[facility]/[place] [address] Antibody screen (05/31/2022 1:43 PM EDT) [facility] Signature Ab Screen Negative [facility] LABORATORY Expires at 06/03/2022 [facility] [id number] on: [facility] LABORATORY Specimen Anatomical Collection Method Collection Time Receive d Time (Source) Location / / Volume Laterality Blood 05/31/2022 1:43 PM 2 1:57 EDT PM EDT Resulting Agency Comment Spec In Lab Regina Hinds MD BLOOD BANK ORDERABLES Performing Organization Address City/[facility]/[place] [address] ABO/Rh Typing (05/31/2022 1:43 [...] Address City/[facility]/[place] [address] Prepare RBC (05/31/2022 1:35 PM EDT) P athologist Signature Dispensed? Yes [facility] LABORATORY Specimen Anatomical Collection Method Collection Time Receive d Time (Source) Location / / Volume Laterality Blood 05/31/2022 1:35 PM 2 1:30 EDT PM EDT Regina Hinds MD BLOOD BANK ORDERABLES Performing Organization Address City/[facility] [place] [address] Prepare RBC (05/31/2022 1:25 PM EDT) P athologist Signature Dispensed? Yes [facility] LABORATORY Specimen Anatomical Collection Method Collection Time Receive d Time (Source) Location / / Volume Laterality Blood 05/31/2022 1:25 PM 2 1:23 EDT PM EDT Regina Hinds MD BLOOD BANK ORDERABLES Performing Organization Address [facility] Phon e Number [address] (ABNORMAL) Differential, Automated (05/31/2022 12:44 PM EDT) P athologist Signature Neutrophils % 62.0 % [facility] LABORATORY Neutr Abs (ANC) 4.71 1.70 - [facility] 6.10 [facility] x10(3)/[facility] LABORATORY Lymphocytes % 24.1 % [facility] LABORATORY Lymphocytes Abs 1.8 0.9 - 3.2 [facility] x10(3)/[facility] LABORATORY Monocytes % 10.8 % [facility] LABORATORY Monocyte Abs 0.8 0.3 - 0.9 [facility] x10(3)/[facility] LABORATORY Eosinophils % 1.6 % [facility] LABOR[facility]ORY Eosinophils Abs 0.1 0.0 - 0.4 [facility] x10(3)/[facility] LABORATORY Basophils % 0.7 % [facility] LABOR[facility]ORY Basophils Abs 0.0 0.0 - 0.1 [facility] x10(3)/[facility] LABORATORY Immature Gran % 0.80 % [facility] [...] 0.06 (H) 0.00 - 0.04 x10(3)/[facility] LABORATORY Specimen Anatomical Collection Method Collection Time Receive d Time (Source) Location / / Volume Laterality Blood 05/31/2022 12:44 05/31/2022 PM EDT 12:57 PM EDT Resulting Agency Comment Spec In Lab Brittany Ramirez MD HEMATOLOGY ORDERABLES Performing Organization Address City/State/[place] [address] (ABNORMAL) Hemogram (05/31/2022 12:44 PM EDT) Analysis Performed At Patho logist Time Signature WBC 7.6 4.0 - 9.5 [facility] x10(3)/[facility] LABORATORY RBC 2.11 (L) 4.58 - [facility] 5.54 [facility] x10(6)/[facility] LABORATORY Hemoglobin 6.9 (L) 13.7 - [facility] 16.[facility] g/dL [facility] LABORATORY Hematocrit 20.8 (L) 40.5 - [facility] XIAO 48.5 % [facility] LABORATORY MCV 98.6 (H) 82.9 - [facility] 93.1 [facility] LABORATORY MCH 32.7 (H) 27.5 - [facility] XIAO 32.1 pg [facility] LABORATORY MCHC 33.2 32.0 - [facility] X[facility] 35.7 g/dL [facility] LABORATORY Platelets 255 145 - 357 [facility] x10(3)/[facility] LABORATORY RDWSD 47.7 (H) 36.0 - [facility] XIAO 45.0 [facility] LABORATORY RDWCV 13.4 11.4 - [facility] XIAO 13.8 % [facility] LABORATORY MPV 10.7 7.6 - 12.9 [facility] LABORATORY nRBC % Auto 0.0 % [facility] LABORATORY nRBC Abs Auto 0.000 0.000 - [facility] 0.000 [facility] x10(3)/[facility] LABORATORY Specimen Anatomical Collection Method Collection Time Receive d Time (Source) Location / / Volume Laterality Blood 05/31/2022 12:44 05/31/2022 PM EDT 12:57 PM EDT Resulting Agency Comment Spec In Lab Brittany Ramirez MD HEMATOLOGY ORDERABLES Performing Organization Address City/State/[place] [address] (ABNORMAL) BLOOD GAS 2 VENOUS (05/31/2022 11:24 AM EDT) P athologist Signature pH [place] 7.38 7.32 - [facility] 7.42 [facility] LABORATORY pCO2 [place] 40 (L) 41 - 51 [facility] LABORATORY pO2 [place] 18 (L) 25 - 40 [facility] LABORATORY HCO3 [place] 23.3 mmol/L [facility] LABOR[facility] BE Marco Antonio -1.8 mmol/L [facility] LABOR[facility]ORY Hgb Blood Gas 7.0 (L) 13.7 - [facility] 16.5 g/dL [facility] LABORATORY O2HB [place] 24.3 % [facility] LABORATORY COHB [place] 1.4 % [facility] LABORATORY Comment: Nonsmokers: 0.5-1.5% COHB Smokers: Variable, but usually less than 10% Toxic: 20-30% COHB Lethal: Greater than 60% COHB METHB [place] 1.7 (H) <=1.5 % [facility] LABORATORY Na Whole Blood 137 135 [...] [facility] BGas Source Venous [facility] LABORATORY Specimen Anatomical Collection Method Collection Time Receive d Time (Source) Location / / Volume Laterality Blood 05/31/2022 11:24 05/31/2022 AM EDT 11:24 AM EDT Regina Hinds MD CHEMISTRY ORDERABLES Performing Organization Address City/[facility]/ZIP Code Phon e Number [address] TSH Wilbarger (05/31/2022 11:20 AM EDT) P athologist Signature TSH 1.67 0.27 - 4.20 [facility] mcIU/mL [facility] LABORATORY Comment: Reference Interval (mcIU/mL): Females: ??First Trimester: 0.23-3.88 ??Second Trimester: 0.22-3.90 ??Third Trimester: 0.44-4.66 Specimen Anatomical Collection Method Collection Time Receive d Time (Source) Location / / Volume Laterality Blood 05/31/2022 11:20 05/31/2022 AM EDT 11:28 AM EDT Resulting Agency Comment Spec In Lab Regina Hinds MD CHEMISTRY ORDERABLES Performing Organization Address City/[facility]/ZIP Code Phon e Number [address] XR Chest PA & [...] questions please contact the health customer care assistant that requested your imaging first. ? Electronically signed by: Alan strong MD, [facility] ([phone]), at 05/31/2022 11:33 AM Narrative 05/31/2022 11:33 [...] questions please contact the health customer care assistant that requested your imaging first. Electronically signed by: Alan strong MD, [facility] ([phone]), at 05/31/2022 11:33 AM Regina Hinds MD IMG DX ORDERABLES Lipase (05/31/2022 10:50 AM EDT) athologist Signature Lipase 41 0 - 60 [facility] unit/L [facility] LABORATORY Specimen Anatomical Collection Method Collection Time Receive d Time (Source) Location / / Volume Laterality Blood Venous Draw / 05/31/2022 10:50 05/31/2022 Unknown AM EDT 11:11 AM EDT Resulting Agency Comment Spec In Lab Zain Champion MD CHEMISTRY ORDERABLES Performing Organization Address City/State/ZIP Code Phon e Number [place] [id number] HOSPITAL LABORATORY Drive (ABNORMAL) Hepatic Function Panel (05/31/2022 10:50 AM EDT) Analysis Performed At Patho logist Time Signature Total Protein 6.4 6.1 - 8.0 [facility] g/dL [facility] LABORATORY Albumin 4.1 3.2 - 5.2 [facility] g/dL [facility] LABORATORY AST 24 0 - 39 [facility] unit/L [facility] LABORATORY ALT 44 0 - 55 [facility] unit/L [facility] LABORATORY Alk Phos 63 40 - 130 [facility] unit/L [facility] LABORATORY Total <0.2 (L) 0.2 - 1.3 [facility] Bilirubin mg/dL [facility] LABORATORY Bili, Direct 0.1 0.0 - 0.3 [facility] mg/dL [facility] LABORATORY Specimen Anatomical Collection Method Collection Time Receive d Time (Source) Location / / Volume Laterality Blood Venous Draw / 05/31/2022 10:50 05/31/2022 Unknown AM EDT 11:11 AM EDT Resulting Agency Comment Spec In Lab Zain Champion MD CHEMISTRY ORDERABLES Performing Organization Address City/[facility]/ZIP Code Phon e Number [address] Blue Tube HOLD (05/31/2022 10:50 AM EDT) athologist Signature Blue Hold Sample in [facility] LABORATORY Specimen Anatomical Collection Method Collection Time Receive d Time (Source) Location / / Volume Laterality Blood Venous Draw / 05/31/2022 10:50 05/31/2022 Unknown AM EDT 11:05 AM EDT Brittany Ramirez MD HEMATOLOGY ORDERABLES Performing Organization Address City/[facility]/ZIP Code Phon e Number [address] (ABNORMAL) Differential, Automated (05/31/2022 10:50 AM EDT) athologist Signature Neutrophils % 66.9 % [facility] LABORATORY Neutr Abs (ANC) 5.58 1.70 - [facility] 6.10 [facility] x10(3)/[facility] LABORATORY Lymphocytes % 22.2 % [facility] LABORATORY Lymphocytes Abs 1.8 0.9 - 3.2 [facility] x10(3)/[facility] LABORATORY Monocytes % 7.8 % [facility] LABORATORY Monocyte Abs 0.6 0.3 - 0.9 [facility] x10(3)/[facility] LABORATORY Eosinophils % 1.2 % [facility]ORY Eosinophils Abs 0.1 0.0 - 0.4 [facility] x10(3)/[facility] LABORATORY Basophils % 0.7 % [facility] LABOR[facility]ORY Basophils Abs 0.1 0.0 - 0.1 [facility] x10(3)/[facility] LABORATORY Immature Gran % 1.20 % [facility] [...] 0.10 (H) 0.00 - 0.04 x10(3)/[facility] LABORATORY Specimen Anatomical Collection Method Collection Time Receive d Time (Source) Location / / Volume Laterality Blood 05/31/2022 10:50 05/31/2022 AM EDT 11:03 AM EDT Resulting Agency Comment Spec In Lab Brittany Ramirez MD HEMATOLOGY ORDERABLES Performing Organization Address City/State/[place] [address] (ABNORMAL) Hemogram (05/31/2022 10:50 AM EDT) Analysis Performed At Patho logist Time Signature WBC 8.3 4.0 - 9.5 [facility] x10(3)/[facility] LABORATORY RBC 2.26 (L) 4.58 - [facility] x[facility](6[facility] LABORATORY Hemoglobin 7.4 (L) 13.7 - [facility] 16.[facility] g/dL [facility] LABORATORY Hematocrit 22.3 (L) 40.5 - [facility] 48.5 % [facility] LABORATORY MCV 98.7 (H) 82.9 - [facility] 93.1 [facility] LABORATORY MCH 32.7 (H) 27.5 - [facility] XIAO 32.1 pg [facility] LABORATORY MCHC 33.2 32.0 - [facility] 35.7 g/dL [facility] LABORATORY Platelets 283 145 - 357 [facility] x10(3)/[facility] LABORATORY RDWSD 47.0 (H) 36.0 - [facility] 45.0 [facility] LABORATORY RDWCV 13.4 11.4 - [facility] 13.8 % [facility] LABORATORY MPV 10.8 7.6 - 12.9 [facility] LABORATORY nRBC % Auto 0.0 % [facility] LABORATORY nRBC Abs Auto 0.000 0.000 - [facility] 0.000 [facility] x10(3)/[facility] LABORATORY Specimen Anatomical Collection Method Collection Time Receive d Time (Source) Location / / Volume Laterality Blood 05/31/2022 10:50 05/31/2022 AM EDT 11:03 AM EDT Resulting Agency Comment Spec In Lab Brittany Ramirez MD HEMATOLOGY ORDERABLES Performing Organization Address City/State/ZIP Code Phon e Number [address] Phosphorus (05/31/2022 10:50 AM EDT) P athologist Signature Phosphorus 3.2 2.5 - 4.5 [facility] [place] mg/dL [facility] LABORATORY Specimen Anatomical Collection Method Collection Time Receive d Time (Source) Location / / Volume Laterality Blood 05/31/2022 10:50 05/31/2022 AM EDT 11:03 AM EDT Resulting Agency Comment Spec In Lab Regina Hinds MD CHEMISTRY ORDERABLES Performing Organization Address City/State/ZIP Code Phon e Number [address] Magnesium (05/31/2022 10:50 AM EDT) P athologist Signature Magnesium 0.93 0.69 - 1.07 [facility] mmol/L [facility] LABORATORY Specimen Anatomical Collection Method Collection Time Receive d Time (Source) Location / / Volume Laterality Blood 05/31/2022 10:50 05/31/2022 AM EDT 11:03 AM EDT Resulting Agency Comment Spec In Lab Regina Hinds MD CHEMISTRY ORDERABLES Performing Organization Address City/State/[place] [address] (ABNORMAL) pro-Brain Natriuretic Peptide (05/31/2022 10:50 AM EDT) P athologist Signature ProBNP 1,077 (H) <=449 [facility] [place] pg/mL [facility] LABORATORY Specimen Anatomical Collection Method Collection Time Receive d Time (Source) Location / / Volume Laterality Blood 05/31/2022 10:50 05/31/2022 AM EDT 11:03 AM EDT Resulting Agency Comment Spec In Lab Regina Hinds MD CHEMISTRY ORDERABLES Performing Organization Address City/[facility]/[place] [address] Troponin (05/31/2022 10:50 AM EDT) athologist Signature Troponin-T <0.01 0.00 - 0.00 [facility] ng/mL [facility] LABORATORY Comment: The 99th percentile for Troponin T is le ss than 0.01 ng/mL, any detectable cTnT concentration using this assay should be considered elevated. According to the third universal definit ion of myocardial infarction the following criteria with a clinical prese ntation consistent with acute myocardial ischemia meets the diagnosis for a myocardial infarction (MD). Detection of a rise and/or fall of [...] additional sample may be indicated. Reference: Third [place] Definition of Myocardial Infarction. Journal of the [place] [employer] 2012;60:1581-98 Specimen Anatomical Collection Method Collection Time Receive d Time (Source) Location / / Volume Laterality Blood 05/31/2022 10:50 05/31/2022 AM EDT 11:03 AM EDT Resulting Agency Comment Spec In Lab Regina Hinds MD CHEMISTRY ORDERABLES Performing Organization Address City/[facility]/[place] [address] (ABNORMAL) Basic Metabolic Panel (non-fasting) (05/31/2022 10:50 AM EDT) athologist Signature Glucose Lvl 223 (H) 65 - 199 [facility] mg/dL [facility] LABORATORY Comment: Diabetes: >=200 mg/dL plus symp toms BUN 39 (H) 10 - 20 mg/dL [facility] LABORATORY Creatinine 0.91 0.80 - 1.50 mg/dL [facility] LABORATORY Sodium 140 135 - 145 mmol/L [facility] LABORATORY Potassium 4.1 3.5 - 5.0 mmol/L [facility] LABORATORY [...] LABORATORY Calcium 9.1 8.5 - 10.5 mg/dL [facility] LABORATORY Estimated GFR 86 >=60 mL/min/1.73 [...] Organization Address City/State/[place] [address] EKG 12 Lead (05/31/2022 10:11 AM EDT) Component Value Ref Range Test Analysis Performed Pathologis t Method Time At Signature Ventricular rate 106 BPM MUSE SYSTEM QRS Duration 122 ms MUSE SYSTEM Q-T Interval 368 ms MUSE SYSTEM QTC Calculated 488 ms MUSE SYSTEM (Bezet) Calculated R [place] -43 degrees MUSE SYSTEM Calculated T [place] 109 degrees MUSE SYSTEM INTERPRETATION Atrial fibrillation [...] erpretation Confirmed by fellow MD Mike, [place] ([id number]) on 022 8:36:21 PM Confirmed by MD [...] PROTOCOL, Starting on Fri05/31/22 at 2013, Until Si[place] 06/02/22 at 1702, Per Pro tocol, START [...] CONTINUOUS, Starting on Fri05/31/22 at 2015, Until Siren 06/02/22 at 1702, Begin infusion at 950 [...] (Lidoderm) 5% patch 2 patch(Linked Group 1) 6150 (Patch Applied - Provider: Raven Barbour RN [...] RN)0710 (New Bag - Provider: Raven Barbour RN)5128 (Stopped - Provider: Maranda Ribeiro RN) 0-5,000 [...] - Less than 0.1 international unit/mL: Ad psychiatric therapist 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
Routine documented in this encounter Care Teams Barrel Planer Relationship Specialty Start Date End Date Bobby Das MD PCP - General 10/02/[address] [place] [address] [place] [id number] documented as of this encounter
--- OUTSIDE RECORDS SUMMARY | 2022-07-22 10:26 | XMS_ITS | Encounter Summary ---
:1940 Author Organization [facility] [place] [address] Care Team Providers Name Role Phone Bobby Das MD Primary Care Provider Encounter Details Date Type Department Care Team Description 05/28/2022 Telephone Vascular Surgery at [facility] Dominique Bolivar, [place] [phone] Social History Tobacco Use Types Packs/Day [...] RN - 05/28/2022 1:20 PM EDT This auto service writer returned phone call due to 's [...] cardiac history and symptoms of lightheadedness, this auto service writer recommended the patient be evaluated. Discussed going to local ED ([facility]) where staff could also phone vascular and/or cardiac at [facility] for planning. The patient agreed to do this after he has lunch. documented in this encounter Plan of Treatment Upcoming Encounters Date Type Specialty Care Team Description 08/08/2022 Office Visit Gastroenterology Negra Collins MD [facility] DR GASTROENTEROLOGY DEPT [place], [place] [address] (Wo rk) 09/05/2022 Appointment Cardiology Trinity Reid MD [facility] CARDIOLOGY [place], [place] [address] (Wo rk) 09/05/2022 Office Visit Cardiology Trinity Reid MD [facility] CARDIOLOGY [place], [place] [address] (Wo rk) documented as of this encounter Visit Diagnoses Not on filedocumented in this encounter Care Teams Loan Review Analyst Relationship Specialty Start Date End Date Bobby Das MD PCP - General 10/02/[address] [place] [address] [place] [phone] documented as of this encounter
--- OUTSIDE RECORDS SUMMARY | 2022-07-22 10:26 | XMS_ITS | Encounter Summary ---
:1940 [place] [address] Care Team Providers Name Role Phone Bobby Das MD Primary Care Provider Reason for Visit Reason Comments Dizziness Auth/Cert Specialty Diagnoses / Procedures Referred By Contact Refer red To Contact Diagnoses GIB (gastrointestinal bleeding) Abe [facility] [place] [address] Referral ID Status Reason Start Date Expiration Date Visits Requ ested Visits Authorized [id number] 1 1 Encounter Details Date Type Department Care Team Description 05/31/2022 - Hospital Encounter Intermediate Special Dixon Hinds MD [facility] [place] [address] GIB 06/02/2022 Care Unit [place] [address] (gastrointestinal [facility] [place] [address] bleeding) ([facility] [place] [address] Dx) [place] [address] Social History Tobacco Use Types Packs/Day Years [...] Valle MD - 06/02/2022 12:48 PM EDT [facility] Medicine - Discharge Summary Patient Name: [...] switching to a different bloodthinner with the dustless operator outpatient. Call your doctor or seek [...] switchingto a different blood thinner with your dustless operator as an outpatient Stopped Medications - Aspirin - Valsartan - Speak with your dustless operator about the timing of restarting this Follow-up Appointments Future Appointments Date Time Provider Department Center 06/10/2022 11:00 AM Loretta Cohen MD [facility] 06/13/2022 7:30 AM Edson Lagos [place] [facility] VAS LAB [facility] 06/13/2022 8:00 AM Fito Summers MD [facility] V SURG [facility] 06/13/2022 10:00 AM Alan Reid MD [address] Your Inpatient Medical Team at [facility] Name(s) of your inpatient provider(s): Dr. John Ames For questions regarding issues relating to your hospitalization on the Hospital Medicine Service, please contact your inpatient physician through the [facility] Class A Regional Truck Driver [phone]. Issues after hours and on weekends will be handled by the Hospitalist staff on-call. Your Primary Care Provider Bobby Das MD [phone] Future Appointments and Orders Future Appointments and Orders Future Appointments Provider Department Dept Phone 06/10/2022 11:00 AM Loretta Cohen MD Dermatology [facility] Arrive at: Advertising Dispatch Clerks Supervisor [address] [place] [phone] 06/13/2022 7:30 AM Edson Lagos [place] Vascular Lab at [facility] Arrive at: Advertising Dispatch Clerks Supervisor Area [phone] 06/13/2022 8:00 AM Fito Summers MD Vascular Surgery at [facility] Arrive at: Advertising Dispatch Clerks Supervisor Area 06/13/2022 10:00 AM Alan Reid MD Cardiology at [facility] Arrive at: Advertising Dispatch Clerks Supervisor Area [phone] For questions regarding this document or issues relating to this hospitalization on the Medical Service, please contact your inpatient physician through the [facility] Class A Regional Truck Driver . Issues after hours and on weekends [...] switching to a different bloodthinner with the dustless operator outpatient. Call your doctor or seek [...] switchingto a different blood thinner with your dustless operator as an outpatient Stopped Medications - Aspirin - Valsartan - Speak with your dustless operator about the timing of restarting this Follow-up Appointments Future Appointments Date Time Provider Department Center 06/10/2022 11:00 AM Loretta Cohen MD [facility] 06/13/2022 7:30 AM Edson [place]os [place] [facility] VAS LAB ILDA POWELL 06/13/2022 8:00 AM Fito Summers MD [facility] V SURG [facility] 06/13/2022 10:00 AM Alan Reid MD [facility] CARD 4A [facility] Your Inpatient Medical Team at [facility] Name(s) of your inpatient provider(s): Dr. John Ames For questions regarding issues relating to your hospitalization on the Hospital Medicine Service, please contact your inpatient physician through the [facility] Class A Regional Truck Driver [phone]. Issues after hours and on weekends will be handled by the Hospitalist staff on-call. Your Primary Care Provider Bobby Das MD [phone] documented in this encounter Medications at Time [...] 04/12/20 21 (FLONASE) 50 mcg/actuation Nare route [place], Suspension daily as needed. fluorouraciL (EFUDEX) 5 [...] spent >30 minutes (Day of Discharge Code 09014) involved in the final examination of the [...] were not included. Hospital Medicine Progress Note [place] Team - Pager #[phone] Admit Date: 05/31/2022 Name: Koko Zamora : [...] cardiology to discuss antiplatelet (ISO bleed and fdc), following. ?? #CAD s/p stenting recently #HFrEF [...] Kurt Ames MD Internal Medicine, PGY-1 Medicine [place] Team #[id number] Associated attestation - John Jolley MD - 06/01/2022 5:02 PM EDT [facility] Medicine -- Attending Progress Note Please [...] of two midnights or is on the [facility] inpatient only procedure list (status C) due to: GI Bleeding documented in this encounter H&P Notes Mahendra Victor MD - 05/31/2022 4:33 PM EDT Images from the original note were not included. [facility] Medicine (#[id number]) History and Physical Patient info: Name: Koko Zamora : 1940 PCP: Bobby Das MD PCP phone number: [phone] Date of Admission: 05/31/2022 ( Hospital Day [...] IR Biopsy Spine 07/20/2019 Bobby Marshall MD [facility] INTERVENTIONL RAD ??? IR VERTEBROPLASTY LUMBAR MULTIPLE LEVELS 07/20/2019 IR Vertebroplasty Lumbar Multiple Levels 07/20/2019 Bobby Marshall MD [facility] INTERVENTIONL RAD ??? IR VERTEBROPLASTY THORACIC SINGLE LEVEL 10/25/2020 IR Vertebroplasty Thoracic Single Level 10/25/2020 Matt Chisholm MD [facility] INTERVENTIONL RAD ??? PRO EMBLC/THRMBC FEMORAL POPLITEAL AORTO-ILIAC ARTERY Left 05/15/2022 EMBOLECTOMY OR THROMBECTOMY, FEMOROPOPLITEAL, AORTOILIAC ARTERY BY LEG INCISION (WRVU 19.48) performed by Fito Summers MD at [facility] MAIN OR No family history on [...] 11 ??? fluticasone propionate (FLONASE) 50 mcg/actuation [place], Suspension as needed. ??? fluorouraciL (EFUDEX) 5 [...] Gas) No results found for: PHART, PO2ART, FHB0FLD, LMC0KDZ Microbiology: N/A Pertinent radiology/diagnostic studies: Recent prior [...] Status: Full Arpita Valle MD, PGY-3 05/31/2022 [facility] Medicine # [id number] Attending Staff Admission Documentation I have examined [...] 05/31/2022 3:58 PM EDT Norepinephrine pulled from [facility] for soft BPs. Upon arrival to pt's [...] AM EDT Pt brought to XR by securities lending trader Brittany Ramirez MD - 05/31/2022 10:40 [...] who have questions please contact the health animal caregiver that requested your imaging first. Chest [...] who have questions please contact the health animal caregiver that requested your imaging first. Course [...] recommendations from Brittany Tavares MD Resident 05/31/22 [id number] Associated attestation - Regina Hinds MD - [...] soft blood pressures, MD made aware. LBM KEY ACCOUNT REPRESENTATIVE. 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 Patient reported blurry/hazy [...] gtt - plan to [place] Discharge planning Increase strength & mobility INDIVIDUALIZED [...] the original note were not included. [facility] NAOMY Pena [phone] INPATIENT CARDIOLOGY CONSULT NOTE Date of Consultation: 06/01/2022 Admit Date: 05/31/2022 Place of Service: IS86/IS86-A Referring Attending: REGINA HINDS COLEMAN W FRIEDMAN, HARLEY P Responsible Day Light Relief Operator: Dr. Rizo Hospital Day 1 day [...] LCX and LCx stent) who presented to [facility] on 05/31/2022 for GI [...] IR Biopsy Spine 07/20/2019 Bobby Marshall MD [facility] INTERVENTIONL RAD ??? IR VERTEBROPLASTY LUMBAR MULTIPLE LEVELS 07/20/2019 IR Vertebroplasty Lumbar Multiple Levels 07/20/2019 Bobby Marshall MD [facility] INTERVENTIONL RAD ??? IR VERTEBROPLASTY THORACIC SINGLE LEVEL 10/25/2020 IR Vertebroplasty Thoracic Single Level 10/25/2020 Matt Chisholm MD [facility] INTERVENTIONL RAD ??? PRO EMBLC/THRMBC FEMORAL POPLITEAL AORTO-ILIAC ARTERY Left 05/15/2022 EMBOLECTOMY OR THROMBECTOMY, FEMOROPOPLITEAL, AORTOILIAC ARTERY BY LEG INCISION (WRVU 19.48) performed by Fito Summers MD at [facility] MAIN OR ALLERGIES: Allergies Allergen Reactions [...] time ??? fluticasone propionate (FLONASE) 50 mcg/actuation [place], Suspension 1 spray by Each Nare route [...] from 05/31/2022 in Intermediate Special Care Unit [facility] ED to Hosp-Admission (Discharged) from 05/15/2022 in Intermediate Cardiac Care Unit [facility] Weight 77.1 kg (170 lb) [...] Neurology: Without focal deficit ECG: Echocardiogram: 05/16/2022 [facility] 05/20/2022 Coronary Angiography: Dominance: Right Left [...] 3.5 guiding catheter and a 3.5 [address] [facility] [place] [address] 20 Mhz. Imaging was successful. Image [...] A premounted 2.75 x 30 mm Rudy Forest (AMPARO) was deployed with a maximum inflation [...] may require modification of this regimen. Consult [facility] Interventional Cardiology for [...] Hb drop. Unknown source. has had a [facility] with stent placed and revascularization of [...] who have questions please contact the health animal caregiver that requested your imaging first. Ziopatch [...] who have questions please contact the health animal caregiver that requested your imaging first. Recent [...] on xarelto, ischemic systolic heart failure (recent [facility] 05/20/2022 with 2V disease OM1 and distal RCA, had ostial LCX and LCx stent), recent admission for acutelimb ischemia LLE, where he had left common femoral transverse arteriotomy and primary repair, thromboembolectomy of the SFA, profunda and common femoral artery with 4 compartment fasciotomies, who presented to [facility] on 05/31/2022 for GI [...] attestation for additional insight. Rossy Anaya MD [facility] Merchandise Presentation Manager, PGY-5 Inpatient Cardiology Consults Pager #[phone] Please check Qgenda for on-call cardiology consults [...] A&Ox 4. On room air. VSS. LBM: KEY ACCOUNT REPRESENTATIVE. Adequate urine output, urinal at bedside, flomax [...] 180 days) Any patient receiving care in [place] must abide by [place] law. The hierarchy [...] The agent with financial power of senior attorney or a conservator appointed in accordance [...] walker - rolling Home Address confirmed as: [address] [place] [phone] Social & Family Supports: All names listed below confirmed with patient as current and correct Extended Emergency Contact Information Primary Emergency Contact: Ursula Zamora Address: [address] [place] [id number] [facility] Relation: Spouse Current Care Provided [...] Type: *No Product type* / Secondary Insurance: [facility] Secondary Insurance? (Only Medicare A&B): Yes ; Prescription Coverage: Yes Preferred Pharmacy: [id number] - [facility], [place] - [address] [facility] [address] [facility] [address] Status: Patient is a : No Primary Care Provider: Bobby Das MD [phone] Patient/Caregiver Goals of Treatment: Patient plans to [...] with transition of care planning. ASH Garcia Hairmasters Manager [facility] Medicine/ Medical Specialties Pager- [phone] Plan [...] Operative Note Patient Name: Koko Rioson : [id number] MR#: [id number] Case Date: 05/31/2022 Surgeon: Surgeon(s) and Role: [...] SPINE 07/20/2019 IR Biopsy Spine 07/20/2019 Bobby Marsahll MD [facility] INTERVENTIONL RAD ??? IR VERTEBROPLASTY LUMBAR MULTIPLE LEVELS 07/20/2019 IR Vertebroplasty Lumbar Multiple Levels 07/20/2019 Bobby Marshall MD [facility] INTERVENTIONL RAD ??? IR VERTEBROPLASTY THORACIC SINGLE LEVEL 10/25/2020 IR Vertebroplasty Thoracic Single Level 10/25/2020 Matt Chisholm MD [facility] INTERVENTIONL RAD ??? PRO EMBLC/THRMBC FEMORAL POPLITEAL AORTO-ILIAC ARTERY Left 05/15/2022 EMBOLECTOMY OR THROMBECTOMY, FEMOROPOPLITEAL, AORTOILIAC ARTERY BY LEG INCISION (WRVU 19.48) performed by Fito Summers MD at [facility] MAIN OR SOCIAL HX: Social History [...] sounds, tympanic to percussion RECTAL: performed with tan room supervisor present, no overt masses, fissures, external [...] who have questions please contact the health animal caregiver that requested your imaging first. Abdomen [...] Collins MD [facility] GASTROENTEROLOGY DEPT [place], [place] [address] (Wo bob) 09/05/2022 Appointment Cardiology Trinity Reid MD [facility] CARDIOLOGY [place], [place] 0375 (Wo bob) 09/05/2022 Office Visit Cardiology Trinity Reid MD [facility] ER DR CARDIOLOGY [place], [place] [address] (Wo rk) documented as of [...] EDT) athologist Signature Neutrophils % 61.3 % [facility] LABORATORY Neutr Abs (ANC) 4.44 1.70 - [facility] 6.10 [facility] x10(3)/[facility] LABORATORY Lymphocytes % 25.2 % [facility] LABORATORY Lymphocytes Abs 1.8 0.9 - 3.2 [facility] x10(3)/[facility] LABORATORY Monocytes % 10.0 % [facility] LABORATORY Monocyte Abs 0.7 0.3 - 0.9 [facility] x10(3)/[facility] LABORATORY Eosinophils % 2.1 % [facility] LABORATORY Eosinophils Abs 0.2 0.0 - 0.4 [facility] x10(3)/[facility] LABORATORY Basophils % 0.7 % [facility] LABORATORY Basophils Abs 0.0 0.0 - 0.1 [facility] x10(3)/[facility] LABORATORY Immature Gran % 0.70 % [...] Organization Address City/State/ZIP Code Phon e Number [place] [id number] [facility] LAB[address]ORY Drive (ABNORMAL) Hemogram (06/02/2022 8:20 AM EDT) Analysis Performed At Patho logist Time Signature WBC 7.2 4.0 - 9.5 [place] x10(3)/[facility] LABORATORY RBC 2.74 (L) 4.58 - [facility] 5.54 [facility] x10(6)/[facility] LABORATORY Hemoglobin 8.7 (L) 13.7 - [facility] 16.5 g/dL [facility] LABORATORY Hematocrit 25.7 (L) 40.5 - [facility] 48.5 % [facility] LABORATORY MCV 93.8 (H) 82.9 - [facility] 93.1 [facility] LABORATORY MCH 31.8 27.5 - [place] 32.[address] [facility] LABORATORY MCHC 33.9 32.0 - [place] 35.7 g/dL [facility] LABOR[facility]ORY Platelets 260 145 - 357 [facility] x10(3)/[facility] LABORATORY RDWSD 51.0 (H) 36.0 - [place] 45.0 [facility] LABORATORY RDWCV 14.9 (H) 11.4 - [facility] XIAO 13.8 % [facility] LABORATORY MPV 10.0 7.6 - 12.9 [facility] LABORATORY nRBC % Auto 0.0 % [facility] LABORATORY nRBC Abs Auto 0.000 0.000 - [place] 0.000 [facility] x10(3)/[facility] LABORATORY Specimen Anatomical Collection Method Collection Time Receive d Time (Source) Location / / Volume Laterality Blood 06/02/2022 8:20 AM 8:25 EDT AM EDT Resulting Agency Comment Spec In Lab Kurt Ames MD HEMATOLOGY ORDERABLES Performing Organization Address City/[facility]/ZIP [place] [address] Heparin (unfractionated) Level (06/02/2022 6:30 AM EDT) athologist Signature Heparin UFH 0.39 IU/mL [facility] LABORATORY Comment: Heparin (anti-Xa) levels should be [...] Organization Address City/State/ZIP [place] [address] Heparin (unfractionated) Level (06/02/2022 12:30 AM EDT) athologist Signature Heparin UFH 0.81 IU/mL [facility] LABORATORY Comment: Heparin (anti-Xa) levels should be [...] Address City/[facility]/ZIP Code Phon e Number [address] Magnesium (06/02/2022 12:30 AM EDT) athologist Signature Magnesium 0.83 0.69 - 1.07 [facility] mmol/L [facility] LABORATORY Specimen Anatomical Collection Method Collection Time Receive d Time (Source) Location / / Volume Laterality Blood 06/02/2022 12:30 06/02/2022 AM EDT 12:40 AM EDT Resulting Agency Comment Spec In Lab Mahendra Victor MD CHEMISTRY ORDERABLES Performing Organization Address City/[facility] Phon e Number [address] (ABNORMAL) Basic Metabolic Panel (non-fasting) (06/02/2022 12:30 AM EDT) athologist Signature Glucose Lvl 151 65 - 199 [facility] mg/dL [facility] LABORATORY Comment: Diabetes: >=200 mg/dL plus symp toms BUN 12 10 - 20 mg/dL [facility] LABORATORY Creatinine 0.71 (L) 0.80 - 1.50 mg/dL [facility] LABORATORY Sodium 142 135 - 145 mmol/L [facility] LABORATORY Potassium 3.8 3.5 - 5.0 mmol/L [facility] [...] Anion Gap 10 5 - 15 mmol/L [facility] LABORATORY Calcium 8.1 (L) 8.5 - 10.5 mg/dL [facility] LABORATORY Estimated GFR 93 >=60 mL/min/1.73 [...] Organization Address City/State/ZIP Code Phon e Number [place] [id number] HOSPITAL LABORATORY Drive (ABNORMAL) Differential, Automated (06/01/2022 7:29 PM EDT) P athologist Signature Neutrophils % 68.8 % [facility] LABORATORY Neutr Abs (ANC) 5.34 1.70 - [facility] 6.10 [facility] x10(3)/[facility] LABORATORY Lymphocytes % 19.6 % [facility] LABORATORY Lymphocytes Abs 1.5 0.9 - 3.2 [facility] x10(3)/[facility] LABORATORY Monocytes % 8.1 % [facility] LABORATORY Monocyte Abs 0.6 0.3 - 0.9 [facility] x10(3)/[facility] LABORATORY Eosinophils % 1.8 % [facility] LABORATORY Eosinophils Abs 0.1 0.0 - 0.4 [facility] x10(3)/[facility] LABORATORY Basophils % 0.8 % [facility] LABORATORY Basophils Abs 0.1 0.0 - 0.1 [facility] x[facility](3[facility] LABORATORY Immature Gran % 0.90 % [facility] LABORATORY Comment: Immature [...] Organization Address City/State/ZIP [place] [address] (ABNORMAL) Hemogram (06/01/2022 7:29 PM EDT) Analysis Performed At Patho logist Time Signature WBC 7.8 4.0 - 9.5 [facility] x10(3)/[facility] LABORATORY RBC 2.65 (L) 4.58 - [place] 5.54 [facility] x10(6)/[facility] LABORATORY Hemoglobin 8.3 (L) 13.7 - [facility] 16.5 g/dL [facility] LABORATORY Hematocrit 24.8 (L) 40.5 - [place] 48.5 % [facility] LABORATORY MCV 93.6 (H) 82.9 - [facility] XIAO 93.1 [facility] LABORATORY MCH 31.3 27.5 - [place] 32.[address] [facility] LABORATORY MCHC 33.5 32.0 - [facility] XIAO 35.7 g/dL [facility] LABORATORY Platelets 263 145 - 357 [facility] x10(3)/[facility] LABORATORY RDWSD 52.8 (H) 36.0 - [place] 45.0 [facility] LABORATORY RDWCV 15.4 (H) 11.4 - [facility] XIAO 13.8 % [facility] LABORATORY MPV 10.4 7.6 - 12.9 [facility] LABORATORY nRBC % Auto 0.0 % [facility] LABORATORY nRBC Abs Auto 0.000 0.000 - [place] 0.000 [facility] x10(3)/[facility] LABORATORY Specimen Anatomical Collection Method Collection Time Receive d Time (Source) Location / / Volume Laterality Blood 06/01/2022 7:29 PM 2 7:29 EDT PM EDT Resulting Agency Comment Spec In Lab Kurt Ames MD HEMATOLOGY ORDERABLES Performing Organization Address City/[facility]/ZIP Code Phon e Number [address] Heparin (unfractionated) Level (06/01/2022 7:29 PM EDT) P athologist Signature Heparin UFH 0.81 IU/mL [facility] LABORATORY Comment: Heparin (anti-Xa) levels should be [...] Organization Address City/State/Z[place] [address] (ABNORMAL) Heparin (unfractionated) Level (06/01/2022 11:32 AM EDT) Patholo gist Method Time Signature Heparin UFH 1.05 IU/mL [facility] Level (Critical) [facility]ORY Comment: Critical Result called by [...] Organization Address City/State/ZIP [place] [address] (ABNORMAL) Differential, Automated (06/01/2022 5:56 AM EDT) [facility] Method Time Signature Neutrophils % 62.7 % [facility] LABORATORY Neutr Abs (ANC) 6.11 (H) 1.70 - [facility] 6.10 [facility] x10(3)/[facility] LABORATORY Lymphocytes % 23.5 % [facility] LABORATORY Lymphocytes Abs 2.3 0.9 - 3.2 [facility] x10(3)/[facility] LABORATORY Monocytes % 10.0 % [facility] LABORATORY Monocyte Abs 1.0 (H) 0.3 - 0.9 [facility] x10(3)/[facility] LABORATORY Eosinophils % 2.2 % [facility] LABORATORY Eosinophils Abs 0.2 0.0 - 0.4 [facility] x10(3)/[facility] LABORATORY Basophils % 0.9 % [facility] LABORATORY Basophils Abs 0.1 0.0 - 0.1 [facility] x10(3)/[facility] LABORATORY Immature Gran % 0.70 % [...] Organization Address City/State/ZIP Code Phon e Number [place] [id number] HOSPITAL LABORATORY Drive (ABNORMAL) Hemogram (06/01/2022 5:56 AM EDT) Analysis Performed At Patho logist Time Signature WBC 9.7 (H) 4.0 - 9.5 [facility] x10(3)/[facility] LABORATORY RBC 2.83 (L) 4.58 - [facility] XIAO 5.54 [facility] x10(6)/[facility] LABORATORY Hemoglobin 9.0 (L) 13.7 - [facility] 16.5 g/dL [facility] LABORATORY Hematocrit 26.7 (L) 40.5 - [facility] XIAO 48.5 % [facility] LABORATORY MCV 94.3 (H) 82.9 - [facility] 93.[address] [facility] LABOR[facility]ORY MCH 31.8 27.5 - [place] 32.[address] [facility] LABOR[facility]ORY MCHC 33.7 32.0 - [facility] XIAO 35.7 g/dL [facility] LABOR[facility]ORY Platelets 250 145 - 357 [facility] x10(3)/[facility] LABORATORY RDWSD 54.3 (H) 36.0 - [place] 45.0 [facility] LABORATORY RDWCV 15.9 (H) 11.4 - [place] HAGEN 13.8 % [facility] LABORATORY MPV 10.5 7.6 - 12.9 [facility] XIAO [facility] LABORATORY nRBC % Auto 0.0 % [facility] nRBC Abs Auto 0.000 0.000 - [place] XIAO 0.000 [facility] x10(3)/[facility] LABORATORY Specimen Anatomical Collection Method Collection Time Receive d Time (Source) Location / / Volume Laterality Blood 06/01/2022 5:56 AM 2 6:05 EDT AM EDT Resulting Agency Comment Spec In Lab Arpita Valle MD HEMATOLOGY ORDERABLES Performing Organization Address City/State/[place] [address] Heparin (unfractionated) Level (06/01/2022 4:30 AM EDT) athologist Signature Heparin UFH 0.68 IU/mL [facility] LABORATORY Comment: Heparin (anti-Xa) levels should be [...] Organization Address City/State/Z[place] [address] (ABNORMAL) Urinalysis with reflex Culture (06/01/2022 4:00 AM EDT) Patholo gist Method Time Signature Glucose UA 500 Negative [facility] (Critical) mg/dL [facility] Comment: Urinalysis result NOT critical [facility] Nitrite UA Negative Negative [facility]ORY Leukocytes UA Negative Negative [facility] LABORATORY Appearance UA Clear Clear [facility] LABOR[facility]ORY Spec [place] UA >=1.030 (A) 1.005 - 1.030 [facility] LABORATORY Color UA Yellow Yellow [facility] Culture Reflexed No [facility]ORY Specimen Anatomical Collection Method Collection Time Receive d Time (Source) Location / / Volume Laterality Clean Catch 06/01/2022 4:00 AM 4:26 Urine EDT AM EDT Resulting Agency Comment Spec In Lab Mahendra Victor MD URINE ORDERABLES Performing Organization Address City/State/ZIP Code Phon e Number [address] Magnesium (06/01/2022 1:00 AM EDT) P athologist Signature Magnesium 0.93 0.69 - 1.07 [facility] mmol/L [facility] Specimen Anatomical Collection Method Collection Time Receive d Time (Source) Location / / Volume Laterality Blood 06/01/2022 1:00 AM 2 1:37 EDT AM EDT Resulting Agency Comment Spec In Lab Mahendra Victor MD CHEMISTRY ORDERABLES Performing Organization Address City/State/ZIP Code Phon e Number [facility] [place] [address] (ABNORMAL) Basic Metabolic Panel (non-fasting) (06/01/2022 1:00 AM EDT) P athologist Signature Glucose Lvl 148 65 - 199 [facility] mg/dL [facility] Comment: Diabetes: >=200 mg/dL plus symp toms BUN 23 (H) 10 - 20 mg/dL [facility] Creatinine 0.78 (L) 0.80 - 1.50 mg/dL [facility] Sodium 141 135 - 145 mmol/L [facility] Potassium 4.0 3.5 - 5.0 mmol/L [facility] [...] mmol/L [facility] Anion Gap 9 5 - 15 mmol/L [facility] Calcium 8.6 8.5 - 10.5 mg/dL [facility] Estimated GFR 91 >=60 mL/min/1.73 m?? [facility] LABOR[facility]ORY [...] Organization Address City/State/Z[place] [address] (ABNORMAL) Differential, Automated (06/01/2022 12:00 AM EDT) athologist Signature Neutrophils % 64.6 % [facility] Neutr Abs (ANC) 5.60 1.70 - [facility] 6.10 [facility] x10(3)/[facility] LABORATORY Lymphocytes % 22.4 % [facility] Lymphocytes Abs 1.9 0.9 - 3.2 [facility] x10(3)/[facility] LABORATORY Monocytes % 9.5 % [facility] Monocyte Abs 0.8 0.3 - 0.9 [facility] x10(3)[facility] LABORATORY Eosinophils % 2.1 % [facility] Eosinophils Abs 0.2 0.0 - 0.4 [facility] x10(3)[facility] LABORATORY Basophils % 0.6 % [facility] Basophils Abs 0.0 0.0 - 0.1 [facility] x10(3)/[facility] LABORATORY Immature Gran % 0.80 % [facility] Comment: Immature [...] Organization Address City/State/ZIP [place] [address] (ABNORMAL) Hemogram (06/01/2022 12:00 AM EDT) Analysis Performed At Patho logist Time Signature WBC 8.7 4.0 - 9.5 [facility] x[facility](3[facility] LABORATORY RBC 2.77 (L) 4.58 - [place] 5.54 [facility] x10(6)/[facility] LABORATORY Hemoglobin 8.6 (L) 13.7 - [place] 16.5 g/dL [facility] Hematocrit 25.7 (L) 40.5 - [facility] XIAO 48.5 % [facility] MCV 92.8 82.9 - [facility] XIAO 93.1 [facility] LABORATORY MCH 31.0 27.5 - [place] 32.[address] [facility] MCHC 33.5 32.0 - [place] 35.7 g/dL [facility] Platelets 260 145 - 357 [facility] x10(3)/[facility] LABORATORY RDWSD 51.9 (H) 36.0 - [facility] XIAO 45.0 [facility] LABORATORY RDWCV 15.5 (H) 11.4 - [place] XIA[place] 13.8 % [facility] MPV 10.4 7.6 - 12.9 [facility] nRBC % Auto 0.0 % [facility] nRBC Abs Auto 0.000 0.000 - [place] 0.000 [facility] x10(3)/[facility] LABORATORY Specimen (Source) Anatomical Collection Method Collection Time Re ceived Time Location / / Volume Laterality Blood 06/01/2022 06/01/2022 12:1 0 AM EDT Resulting Agency Comment Spec In Lab Arpita Valle MD HEMATOLOGY ORDERABLES Performing Organization Address City/State/ZIP Code [place] [address] (ABNORMAL) Differential, Automated (05/31/2022 9:17 PM EDT) P athologist Signature Neutrophils % 59.6 % [facility] Neutr Abs (ANC) 3.98 1.70 - [facility] 6.10 [facility] x10(3)/[facility] LABORATORY Lymphocytes % 27.5 % [facility] Lymphocytes Abs 1.8 0.9 - 3.2 [facility] x10(3)/[facility] LABORATORY Monocytes % 9.1 % [facility] Monocyte Abs 0.6 0.3 - 0.9 [facility] x10(3)/[facility] LABORATORY Eosinophils % 2.4 % [facility] Eosinophils Abs 0.2 0.0 - 0.4 [facility] x10(3)/[facility] LABORATORY Basophils % 0.7 % [facility] Basophils Abs 0.0 0.0 - 0.1 [facility] x10(3)/[facility] LABORATORY Immature Gran % 0.70 % [...] Organization Address City/State/ZIP Code Phon e Number [place] [id number] HOSPITAL LABORATORY Drive (ABNORMAL) Hemogram (05/31/2022 9:17 PM EDT) Analysis Performed At Patho logist Time Signature WBC 6.7 4.0 - 9.5 [facility] x10(3)/[facility] LABORATORY RBC 2.74 (L) 4.58 - [place] 5.54 [facility] x10(6)/[facility] LABORATORY Hemoglobin 8.5 (L) 13.7 - [facility] 16.5 g/dL [facility] Hematocrit 25.7 (L) 40.5 - [facility] 48.5 % [facility] MCV 93.8 (H) 82.9 - [facility] 93.1 [facility] LABORATORY MCH 31.0 27.5 - [facility] 32.[address] [facility] MCHC 33.1 32.0 - [facility] 35.7 g/dL [facility] Platelets 233 145 - 357 [facility] x10(3)/[facility] LABORATORY RDWSD 51.9 (H) 36.0 - [facility] 45.0 [facility] LABORATORY RDWCV 15.3 (H) 11.4 - [facility] 13.8 % [facility] MPV 10.3 7.6 - 12.9 [facility] LABORATORY nRBC % Auto 0.0 % [facility] nRBC Abs Auto 0.000 0.000 - [facility] 0.000 [facility] x10(3)/[facility] LABORATORY Specimen Anatomical Collection Method Collection Time Receive d Time (Source) Location / / Volume Laterality Blood 05/31/2022 9:17 PM 9:25 EDT PM EDT Resulting Agency Comment Spec In Lab Arpita Valle MD HEMATOLOGY ORDERABLES Performing Organization Address City/State/Z[place] [address] Transfuse RBC (05/31/2022 7:36 PM EDT) Regina Hinds MD NURSING TREATMENT ORDERABLES - BLOOD ADMIN Transfuse RBC (05/31/2022 7:36 PM EDT) Regina Hinds MD NURSING TREATMENT ORDERABLES - BLOOD ADMIN UPPER GI ENDOSCOPY (05/31/2022 3:37 PM EDT) Component Value Ref Test Analysis Performed At Patholo gist Range Method Time Signature UPPER GI [facility] PROVATION ENDOSCOPY Endoscopy Procedure Date: 05/31/2022 3:37 PM ? Patient Name: Koko Zamora ? Date of : 1940 ? Age: 81 ? Order #: [id number] ? Instrument Name: [id number] ? Procedure: ? Upper GI endoscopy Indications: [...] Procedure Code(s): ? --- Professional --- ? 41963, Esophagogastroduode noscopy, ? flexible, transoral; with control [...] stomach ? and duodenum CPT copyright 2020 [employer]. All rights reserved. The codes documented in this report are preliminary and upon risk assessor review may be revised to meet current [...] who have questions please contact the health animal caregiver that requested your imaging first. ? [...] enlarged lymph nodes. Vasculature: Patent common iliac, business analytics intern al iliac, and common femoral arteries bilaterally. [...] enlarged lymph nodes. Vasculature: Patent common iliac, business analytics intern al iliac, and common femoral arteries bilaterally. [...] ho have questions please contact the health animal caregiver that requested your imaging first. Regina Hinds MD IMG CT ORDERABLES Type and Screen Validity (05/31/2022 1:43 PM EDT) [facility] Method Time Signature T&S only valid [facility] LABORATORY Comment: This Type and Screen result is only valid at the [facility] Hospital Specimen Anatomical Collection Method Collection Time Receive d Time (Source) Location / / Volume Laterality Blood 05/31/2022 1:43 PM 2 1:57 EDT PM EDT Resulting Agency Comment Spec In Lab Regina Hinds MD BLOOD BANK ORDERABLES Performing Organization Address City/[facility]/[place] [address] ABORH Recheck Status (05/31/2022 1:43 PM EDT) [facility] Method Time Signature ABORH Type Completed [facility] LABORATORY Specimen Anatomical Collection Method Collection Time Receive d Time (Source) Location / / Volume Laterality Blood 05/31/2022 1:43 PM 2 1:57 EDT PM EDT Resulting Agency Comment Spec In Lab Regina Hinds MD BLOOD BANK ORDERABLES Performing Organization Address City/[facility]/[place] [address] Antibody screen (05/31/2022 1:43 PM EDT) [facility] Method [place] Signature Ab Screen Negative [facility] LABORATORY Expires at 06/03/2022 [facility] [id number] on: [facility] Specimen Anatomical Collection Method Collection Time Receive d Time (Source) Location / / Volume Laterality Blood 05/31/2022 1:43 PM 2 1:57 EDT PM EDT Resulting Agency Comment Spec In Lab Regina Hinds MD BLOOD BANK ORDERABLES Performing Organization Address City/[facility]/[place] [address] ABO/Rh Typing (05/31/2022 1:43 PM EDT) P athologist Signature ABORh Type O Pos [facility]ORY Specimen Anatomical Collection Method Collection Time Receive d Time (Source) Location / / Volume Laterality Blood 05/31/2022 1:43 PM 2 1:57 EDT PM EDT Resulting Agency Comment Spec In Lab Regina Hinds MD BLOOD BANK ORDERABLES Performing Organization Address City/[facility] [place] [address] Prepare RBC (05/31/2022 1:35 PM EDT) P athologist Signature Dispensed? Yes [facility]ORY Specimen Anatomical Collection Method Collection Time Receive d Time (Source) Location / / Volume Laterality Blood 05/31/2022 1:35 PM 2 1:30 EDT PM EDT Regina Hinds MD BLOOD BANK ORDERABLES Performing Organization Address City/[facility]/[place] [address] Prepare RBC (05/31/2022 1:25 PM EDT) P athologist Signature Dispensed? Yes [facility] Specimen Anatomical Collection Method Collection Time Receive d Time (Source) Location / / Volume Laterality Blood 05/31/2022 1:25 PM 2 1:23 EDT PM EDT Regina Hinds MD BLOOD BANK ORDERABLES Performing Organization Address City/[facility] [place] [address] (ABNORMAL) Differential, Automated (05/31/2022 12:44 PM EDT) P athologist Signature Neutrophils % 62.0 % [facility] Neutr Abs (ANC) 4.71 1.70 - [facility] 6.10 [facility] x10(3)/[facility] LABORATORY Lymphocytes % 24.1 % [facility] Lymphocytes Abs 1.8 0.9 - 3.2 [facility] x10(3)/[facility] LABORATORY Monocytes % 10.8 % [facility] Monocyte Abs 0.8 0.3 - 0.9 [facility] x10(3)/[facility] LABORATORY Eosinophils % 1.6 % [facility] Eosinophils Abs 0.1 0.0 - 0.4 [facility] x10(3)/[facility] LABORATORY Basophils % 0.7 % [facility] Basophils Abs 0.0 0.0 - 0.1 [facility] x10(3)/[facility] LABORATORY Immature Gran % 0.80 % [facility]ORY Comment: Immature [...] Organization Address City/State/ZIP Code Phon e Number [place] [id number] HOSPITAL LABORATORY Drive (ABNORMAL) Hemogram (05/31/2022 12:44 PM EDT) Analysis Performed At Patho logist Time Signature WBC 7.6 4.0 - 9.5 [facility] x10(3)/[facility] LABORATORY RBC 2.11 (L) 4.58 - [facility] 5.54 [facility] x10(6)/[facility] LABORATORY Hemoglobin 6.9 (L) 13.7 - [facility] 16.5 g/dL [facility] Hematocrit 20.8 (L) 40.5 - [facility] 48.5 % [facility] MCV 98.6 (H) 82.9 - [facility] 93.1 [facility] LABORATORY MCH 32.7 (H) 27.5 - [facility] 32.[address] [facility] LABORATORY MCHC 33.2 32.0 - [facility] 35.7 g/dL [facility] Platelets 255 145 - 357 [facility] x10(3)/[facility] LABORATORY RDWSD 47.7 (H) 36.0 - [facility] 45.[address] [facility] RDWCV 13.4 11.4 - [facility] 13.8 % [facility] LABORATORY MPV 10.7 7.6 - 12.9 [facility] LABORATORY nRBC % Auto 0.0 % [facility] nRBC Abs Auto 0.000 0.000 - [facility] 0.000 [facility] x10(3)/[facility] LABORATORY Specimen Anatomical Collection Method Collection Time Receive d Time (Source) Location / / Volume Laterality Blood 05/31/2022 12:44 05/31/2022 PM EDT 12:57 PM EDT Resulting Agency Comment Spec In Lab Brittany Ramirez MD HEMATOLOGY ORDERABLES Performing Organization Address City/State/Z[place] [address] (ABNORMAL) BLOOD GAS 2 VENOUS (05/31/2022 11:24 AM EDT) P athologist Signature pH Marcoa Ntonio 7.38 7.32 - [facility] 7.42 [facility]ORY pCO2 Marco Antonio 40 (L) 41 - 51 [facility] LABORATORY pO2 Marco Antonio 18 (L) 25 - 40 [facility] LABORATORY HCO3 Marco Antonio 23.3 mmol/L [facility] BE Marco Antonio -1.8 mmol/L [facility] Hgb Blood Gas 7.0 (L) 13.7 - [facility] 16.5 g/dL [facility] O2HB Marco Antonio 24.3 % [facility] COHB Marco Antonio 1.4 % [facility] Comment: Nonsmokers: 0.5-1.5% COHB Smokers: Variable, but [...] Bld 204 (H) 65 - 199 mg/dL [facility] LABORATORY Comment: Diabetes: >=200 mg/dL plus symp toms Lactate WB 1.4 0.5 - 2.2 mmol/L [facility] LABORATORY BGas Source Venous [facility] LABORATORY Specimen Anatomical Collection Method Collection Time Receive d Time (Source) Location / / Volume Laterality Blood 05/31/2022 11:24 05/31/2022 AM EDT 11:24 AM EDT Regina Hinds MD CHEMISTRY ORDERABLES Performing Organization Address City/State/Z[place] [address] TSH [place] (05/31/2022 11:20 AM EDT) P athologist Signature TSH 1.67 0.27 - 4.20 [facility] mcIU/mL [facility] Comment: Reference Interval (mcIU/mL): Females: ??First Trimester: 0.23-3.88 ??Second Trimester: 0.22-3.90 ??Third Trimester: 0.44-4.66 Specimen Anatomical Collection Method Collection Time Receive d Time (Source) Location / / Volume Laterality Blood 05/31/2022 11:20 05/31/2022 AM EDT 11:28 AM EDT Resulting Agency Comment Spec In Lab Regina Hinds MD CHEMISTRY ORDERABLES Performing Organization Address City/State/Z[place] [address] XR Chest PA & [...] who have questions please contact the health animal caregiver that requested your imaging first. ? [...] vertebroplasty at 2 thoracic levels. Procedure Note Alna Brink MD - 05/31/2022Fo rmatting of this [...] ho have questions please contact the health animal caregiver that requested your imaging first. Regina Hinds MD IMG DX ORDERABLES Lipase (05/31/2022 10:50 AM EDT) athologist Signature Lipase 41 0 - 60 [facility]/L [facility] LABORATORY Specimen Anatomical Collection Method Collection Time Receive d Time (Source) Location / / Volume Laterality Blood Venous Draw / 05/31/2022 10:50 05/31/2022 Unknown AM EDT 11:11 AM EDT Resulting Agency Comment Spec In Lab Zain Champion MD CHEMISTRY ORDERABLES Performing Organization Address City/State/ZIP [place] [address] (ABNORMAL) Hepatic Function Panel (05/31/2022 10:50 AM EDT) Analysis Performed At Patho logist Time Signature Total Protein 6.4 6.1 - 8.0 [facility] XIAO g/dL [facility] Albumin 4.1 3.2 - 5.2 [facility] XIAO g/dL [facility] AST 24 0 - 39 [facility]/L [facility] ALT 44 0 - 55 [facility] unit/L [facility] Alk Phos 63 40 - 130 [facility] unit/L [facility] Total <0.2 (L) 0.2 - 1.3 [facility] Bilirubin mg/dL [facility] Bili, Direct 0.1 0.0 - 0.3 [facility] mg/dL [facility] Specimen Anatomical Collection Method Collection Time Receive d Time (Source) Location / / Volume Laterality Blood Venous Draw / 05/31/2022 10:50 05/31/2022 Unknown AM EDT 11:11 AM EDT Resulting Agency Comment Spec In Lab Zain Champion MD CHEMISTRY ORDERABLES Performing Organization Address City/[facility]/ZIP Code Phon e Number [address] Blue Tube HOLD (05/31/2022 10:50 AM EDT) P athologist Signature Blue Hold Sample in [facility] lab. [facility]OR[facility]ORY Specimen Anatomical Collection Method Collection Time Receive d Time (Source) Location / / Volume Laterality Blood Venous Draw / 05/31/2022 10:50 05/31/2022 Unknown AM EDT 11:05 AM EDT Brittany Ramirez MD HEMATOLOGY ORDERABLES Performing Organization Address City/[facility]/ZIP Code Phon e Number [address] (ABNORMAL) Differential, Automated (05/31/2022 10:50 AM EDT) P athologist Signature Neutrophils % 66.9 % [facility] LABORATORY Neutr Abs (ANC) 5.58 1.70 - [facility] 6.10 [facility] x10(3)/[facility] LABORATORY Lymphocytes % 22.2 % [facility] LABORATORY Lymphocytes Abs 1.8 0.9 - 3.2 [facility] x10(3)/[facility] LABORATORY Monocytes % 7.8 % [facility]ORATORY Monocyte Abs 0.6 0.3 - 0.9 [facility] x10(3)/[facility] LABORATORY Eosinophils % 1.2 % [facility] LABORATORY Eosinophils Abs 0.1 0.0 - 0.4 [facility] x10(3)/[facility] LABORATORY Basophils % 0.7 % [facility] LABORATORY Basophils Abs 0.1 0.0 - 0.1 [facility] x10(3)/[facility] LABORATORY Immature Gran % 1.20 % [facility] LABORATORY Comment: Immature [...] Organization Address City/State/ZIP Code Phon e Number [place] [id number] HOSPITAL LABORATORY Drive (ABNORMAL) Hemogram (05/31/2022 10:50 AM EDT) Analysis Performed At Patho logist Time Signature WBC 8.3 4.0 - 9.5 [facility] x10(3)/[facility] LABORATORY RBC 2.26 (L) 4.58 - [facility] 5.54 [facility] x10(6)/[facility] LABORATORY Hemoglobin 7.4 (L) 13.7 - [facility] 16.5 g/dL [facility]ORY Hematocrit 22.3 (L) 40.5 - [facility] 48.5 % [facility] MCV 98.7 (H) 82.9 - [facility] 93.[address] [facility] MCH 32.7 (H) 27.5 - [place]AG[place] 32.[address] [facility]AT[facility] MCHC 33.2 32.0 - [place] 35.7 g/dL [facility] Platelets 283 145 - 357 [facility] x10(3)/[facility] LABORATORY RDWSD 47.0 (H) 36.0 - [place] 45.0 [facility] LABORATORY RDWCV 13.4 11.4 - [place] 13.8 % [facility] LABORATORY MPV 10.8 7.6 - 12.9 [place] [facility] LABORATORY nRBC % Auto 0.0 % [facility]ORATORY nRBC Abs Auto 0.000 0.000 - [facility] XIAO 0.000 [facility] x10(3)/[facility] LABORATORY Specimen Anatomical Collection Method Collection Time Receive d Time (Source) Location / / Volume Laterality Blood 05/31/2022 10:50 05/31/2022 AM EDT 11:03 AM EDT Resulting Agency Comment Spec In Lab Brittany Ramirez MD HEMATOLOGY ORDERABLES Performing Organization Address City/State/ZIP Code Phon e Number [address] Phosphorus (05/31/2022 10:50 AM EDT) P athologist Signature Phosphorus 3.2 2.5 - 4.5 [facility] XIAO mg/dL [facility] LABORATORY Specimen Anatomical Collection Method Collection Time Receive d Time (Source) Location / / Volume Laterality Blood 05/31/2022 10:50 05/31/2022 AM EDT 11:03 AM EDT Resulting Agency Comment Spec In Lab Regina Hinds MD CHEMISTRY ORDERABLES Performing Organization Address City/State/ZIP Code Phon e Number [address] Magnesium (05/31/2022 10:50 AM EDT) P athologist Signature Magnesium 0.93 0.69 - 1.07 [facility] XIAO mmol/L [facility] LABORATORY Specimen Anatomical Collection Method Collection Time Receive d Time (Source) Location / / Volume Laterality Blood 05/31/2022 10:50 05/31/2022 AM EDT 11:03 AM EDT Resulting Agency Comment Spec In Lab Regina Hinds MD CHEMISTRY ORDERABLES Performing Organization Address City/State/ZIP Code Phon e Number [address] [address] (ABNORMAL) pro-Brain Natriuretic Peptide (05/31/2022 10:50 AM EDT) athologist Signature ProBNP 1,077 (H) <=449 [facility] LightCyber pg/mL [facility] Specimen Anatomical Collection Method Collection Time Receive d Time (Source) Location / / Volume Laterality Blood 05/31/2022 10:50 05/31/2022 AM EDT 11:03 AM EDT Resulting Agency Comment Spec In Lab Regina Hinds MD CHEMISTRY ORDERABLES Performing Organization Address City/State/[place] [address] Troponin (05/31/2022 10:50 AM EDT) athologist Signature Troponin-T <0.01 0.00 - 0.00 [facility] XIAO ng/mL [facility] Comment: The 99th percentile for [...] additional sample may be indicated. Reference: Third [place] Definition of Myocardial Infarction. Journal of the [place] [employer] 2012;60:1581-98 Specimen Anatomical Collection Method Collection Time Receive d Time (Source) Location / / Volume Laterality Blood 05/31/2022 10:50 05/31/2022 AM EDT 11:03 AM EDT Resulting Agency Comment Spec In Lab Regina Hinds MD CHEMISTRY ORDERABLES Performing Organization Address City/State/ZIP Code Phon e Number [place] [phone] (ABNORMAL) Basic Metabolic Panel (non-fasting) (05/31/2022 10:50 AM EDT) athologist Signature Glucose Lvl 223 (H) 65 - 199 [facility] mg/dL [facility] Comment: Diabetes: >=200 mg/dL plus symp toms BUN 39 (H) 10 - 20 mg/dL [facility] Creatinine 0.91 0.80 - 1.50 mg/dL [facility] Sodium 140 135 - 145 mmol/L [facility] Potassium 4.1 3.5 - 5.0 mmol/L [facility] [...] Anion Gap 10 5 - 15 mmol/L [facility] Calcium 9.1 8.5 - 10.5 mg/dL [facility] Estimated GFR 86 >=60 mL/min/1.73 m?? [facility] [...] Organization Address City/State/[place] [address] EKG 12 Lead (05/31/2022 10:11 AM EDT) Component Value Ref Range Test Analysis Performed Pathologis t Method Time At Signature Ventricular rate 106 BPM MUSE SYSTEM QRS Duration 122 ms MUSE SYSTEM Q-T Interval 368 ms MUSE SYSTEM QTC Calculated 488 ms MUSE SYSTEM (Bezet) Calculated R [place] -43 degrees MUSE SYSTEM Calculated T [place] 109 degrees MUSE SYSTEM INTERPRETATION Atrial fibrillation with rapid ventricular response MUSE SYSTEM Left axis deviation Minimal voltage criteria for LVH, may be normal variant ( Lingle product ) Cannot rule out Anterior infarct , age undetermined Abnormal ECG When compared with ECG of 20-MAY-2022 19:04, No significant change was found I personally reviewed the tracing and edited the fellows int erpretation Confirmed by fellow MD Mike, [place] ([id number]) on 022 8:36:21 PM Confirmed by MD [...] (Lidoderm) 5% patch 2 patch(Linked Group 1) 7110 (Patch Applied - Provider: Raven Barbour RN [...] - Less than 0.1 international unit/mL: Ad sample collector 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 to med 0-4,000 Units, Intravenous, [facility], Starting on Fri05/31/22 at [...]
Routine documented in this encounter Care Teams Industrial Engineering Manager Relationship Specialty Start Date End Date Bobby Das MD PCP - General 10/02/[address] [place] [address] [place] [id number] documented as of this encounter
--- OUTSIDE RECORDS SUMMARY | 2022-07-22 10:26 | XMS_ITS | Encounter Summary ---
:1940 Author Organization [facility] Address [address] [place] [address] Care Team Providers Name Role Phone Bobby Das MD Primary Care Provider Encounter Details Date Type Department Care Team Description 05/31/2022 Office Visit Vascular Surgery at [facility]; [facility] RISK CONTROL SPECIALIST Atrial fibrillation, unspecified type; [facility] SOB (shortness of breath) Drive DR Garcia [place] [facility] [id number] [place] [id number] [phone] Social History Tobacco Use Types Packs/Day Years [...] onset Afib who presents in transfer from [facility] with acute limb ischemia of the LLE.??The [...] emergently went to the OR for L ADVERTISING DIRECTOR transverse arteriotomy and primary repair, thromboembolectomy of L SFA/PFA/ADVERTISING DIRECTOR, reperfusion venous drainage for 250 cc, [...] ND, no palpable pulsatile masses Extremity - [place], warm, no ulceration, brisk capillary refill, left [...] 08/08/2022 Office Visit Gastroenterology Negra Collins MD [facility] ER GASTROENTEROLOGY DEPT [place] [phone] (Wo rk) 09/05/2022 Appointment Cardiology Trinity Reid MD [facility] ER CARDIOLOGY [place], [place] [address] (Wo rk) 09/05/2022 Office Visit Cardiology Trinity Reid MD [facility] CARDIOLOGY [place], [place] [address] (Wo rk) documented as of this encounter Visit Diagnoses Diagnosis Dizzy Dizziness and giddiness Atrial fibrillation, unspecified type SOB (shortness of breath) Shortness of breath documented in this encounter Care Teams Probation Manager Relationship Specialty Start Date End Date Bobby Das MD PCP - General 10/02/[address] [place] [address] [place] [address] documented as of this encounter
--- OUTSIDE RECORDS SUMMARY | 2022-07-22 10:27 | XMS_ITS | Encounter Summary ---
:1940 Author Organization [place] [address] Care Team Providers Name Role Phone Bobby Das MD Primary Care Provider Reason for Referral Consultation (Routine) - Authorized Specialty Diagnoses / Procedures Referred By Contact Refer red To Contact Diagnoses Non-ST elevation myocardial infarction (NSTEMI) Limb ischemia Nasrin Parra PA [facility] Tobacco Treatment [facility] [place] [address] [place] [address] Referral ID Status Reason Start Date Expiration Visits Visits Date Requested Authorized [id number] Authorized Consult, 05/21/2022 05/21/2023 1 1 Test & Treat iagnostic Test (Routine) - Closed Specialty Diagnoses / Procedures Referred By Contact Refer red To Contact Cardiology Diagnoses Paroxysmal atrial fibrillation Nasrin Parra PA [facility] Non-Inv Card Lab Procedures Ziopatch 48 Hrs-15 Days [facility] [place] [address] [place] [address] Fax: Referral ID Status Reason Start Date Expiration Date Visits V isits Requested Authorized [id number] Closed Specialty 05/21/2022 10/21/2022 1 1 Service Requested Consultation (Routine) - Closed Specialty Diagnoses / Procedures Referred By Contact Refer red To Contact Cardiology Diagnoses HFrEF (heart failure with reduced ejection fraction) Paroxysmal atrial fibrillation Post-hospital follow-up, s/p PCI with stenting, heart failure Nasrin Parra PA [facility] Cardiology 4a [facility] D R [facility] [place] [address] [place] [address] Referral ID Status Reason Start Date Expiration Date Visits V isits Requested Authorized [id number] Closed Consult, 05/21/2022 05/21/2023 1 1 Test & Treat iagnostic Test (Routine) - Authorized Specialty Diagnoses / Procedures Referred By Contact Refer red To Contact Diagnoses Limb ischemia Nasrin Parra PA [facility] Vascular Lab 3v Procedures JOSSELYN, legs, multiple levels [facility] [place] [address] [place] [address] Referral ID Status Reason Start Expiration Visits Visits Date Date Requested Authorized [id number] Authorized Specialty 05/21/2022 05/21/2023 1 1 Service Requested [facility] (Routine) - Authorized Specialty Diagnoses / Procedures Referred By Contact Refer red To Contact Diagnoses Limb ischemia Fito Summers MD [facility], [facility] VASCULAR SURGERY [address] [place] [address] [address] Fax: Referral ID Status Reason Start Date Expiration Visits Visits Date Requested Authorized [id number] Authorized Consult, 05/21/2022 11/17/2022 999 999 Test & Treat Reason for Visit Reason Comments Left Leg Pain Auth/Cert Specialty Diagnoses / Procedures Referred By Contact Refer red To Contact Diagnoses Limb ischemia LLE thrombus Fito Summers MD [facility] D [place] [address] Referral ID Status Reason Start Date Expiration Date Visits Requ ested Visits Authorized [id number] 1 1 Encounter Details Date Type Department Care Team Description 05/15/2022 - Hospital Intermediate Cardiac Ravi Summers MD [facility] [place] [address] Atrial fibrillation, unspecified type; 05/21/2022 Encounter Care Unit Wellington Gerard MD [facility] [place] [address] Non-ST elevation myocardial infarction ( NSTEMI); [facility] Limb isch emia; [facility] HFrEF (heart failure with re duced ejection fraction); [facility] Paroxysma [place] [address] Social History Tobacco Use Types Packs/Day Years [...] onset Afib who presents in transfer from [facility] with acute limb ischemia [...] emergently went to the OR for L EXAMINING OFFICER transverse arteriotomy and primary repair, thromboembolectomy of L SFA/PFA/EXAMINING OFFICER, reperfusion venous drainage for 250 cc, and [...] Discharge Condition: Good Discharge to: Home with [address] [address] Future Appointments and Orders Future Appointments and Orders Future Appointments Provider Department Dept Phone 05/23/2022 10:30 AM Loretta Cohen MD Dermatology at [facility] Arrive at: Skin [facility] [address] [place] [address] 06/07/2022 1:30 PM Gail Rae APRN Vascular Surgery at [facility] Arrive at: [facility] Area [phone] 06/13/2022 7:30 AM Edson Lagos [place] Vascular Lab at [facility] Arrive at: Skin [facility] Area [phone] 06/13/2022 8:00 AM Fito Summers MD Vascular Surgery at [facility] Arrive at: [facility] Area [phone] 06/13/2022 10:00 AM Alan Reid MD Cardiology at [facility] Arrive at: Skin [facility]itter Area [phone] Future Orders Complete By Expires Demetriusopatch 48 Hrs-15 Days [[id number] CPT(R)] 05/21/2022 11/20/2022 Process Instructions: Scheduling Instructions: Comments: Questions: Does the patient have a pacemaker? If yes provide HI/LO settings: Apply for 7 or 14 days?: 7 Where will study be performed?: [facility] JOSSELYN, legs, multiple levels [VAS8 Custom] 06/21/2022 (Approximate) 12/21/2022 Process Instructions: There is no in-house vascular laborer shipyard available on weeknights (5pm-8am), weekends, or holidays. IF THIS IS A REQUEST FOR AN EMERGENT STUDY DURING THOSE HOURS, please have the senior provider responsible for the patient page the Vascular Surgery Fellow/Senior Resident section leader to discuss options. Scheduling Instructions: Questions: Indication for study/signs & symptoms: ALI s/p L fem cutdown with thromboembolectomy Question to be answered: Perfusion to feet? Please check toe pressure Preferred location?: [facility] Referral to Cardiology [REF12 Custom] As [...] [facility] [address] (home) Date of : 1940 Inpatient DOCUMENTATION FOR VNA SERVICES (INCLUDING THOSE PATIENTS WITH MEDICARE COVERAGE REQUIRING HOME VNA SERVICES AND/OR HOSPICE SERVICES) PATIENT'S LOCATION: Koko Zamora [address] [facility] [phone] (home) Cell: No relevant phone numbers on file. Field Naturalist's Name: Koko In discussion with the attending physician, it is certified that this patient is under their care and that they, or a Nurse Practitioner,Clinical Nurse specialist or Physician Open Soaper Tender who is working directly with them, had [...] for managing ADL's. HOME HEALTH CARE AGENCY: [facility] [address] [place] [address] Start of care: Within 24 to 48 [...] from this patient'sPCP: Bobby Das MD [address] [place] [phone] All A agencies which cover the [...] For any problems or questions please call [phone] For issues on weeknights after 5pm and weekends please call [phone] and ask for the Vascular Fellow section leader. JOSEE Santiago Vascular Surgery 05/21/2022 documented in [...] For any problems or questions please call [phone] For issues on weeknights after 5pm and weekends please call [phone] and ask for the Vascular Fellow section leader. documented in this encounter Medications at Time [...] 04/12/20 21 (FLONASE) 50 mcg/actuation Nare route [place], Suspension daily as needed. fluorouraciL (EFUDEX) 5 [...] documented as of this encounter Progress Notes Nasrni Parra PA - 05/21/2022 12:41 PM EDT Vascular Surgery Progress Note Koko Zamora is a 81 y.o. male with w new onset Afib who presents in transfer from [facility] with acute limb ischemia [...] status, full code. JOSEE Santiago 05/21/2022 Pager: [phone] Brannon Isaacs, PT - 05/21/2022 10:35 AM [...] plan as stated. Time IN / OUT: 8694-9750 Total Minutes, Physical Therapy: 25 Billing Code: 2 B[place]ON Isaacs DPT Pager: [phone] Physical Therapy Inpatient Rehabilitation Department Wellington Jean [...] from 05/15/2022 in Intermediate Cardiac Care Unit [facility] Office Visit from 04/17/2021 in Pain and Spine Center at [facility] Weight 79.8 kg (175 lb 14.8 oz) [...] and plan of care per Dr. Mcnamara (entry level sales associate). 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 His [...] Hosp-Admission (Current) from 05/15/2022 in 4 [facility] Office Visit from 04/17/2021 in Pain and Spine Center at [facility] Weight 79.8 kg (175 lb 14.8 oz) [...] findings andplan of care per Dr. Mcnamara (entry level sales associate). Please refer to her note above for [...] repair in 2000 (not at [facility]) with no CAD at that time. Currently, [...] the first documented HR at [facility] was 125 bpm (presented to an an [...] onset Afib who presents in transfer from [facility] with acute limb ischemia [...] management following Dottie Hill APRN 05/20/2022 Pager: [phone] Laney Atkins RN - 05/20/2022 1:14 AM EDT Pt Koko transferred to room from [facility]. A&Ox4, oriented to room and call boo. Masimo and telemetry placed. In agreement with assessment as documented this evening by Nuris ASHLEY. No complaints at this time. Pt aware of NPO status and plan for cardiac cath in AM. Urinal provided. Resting comfortably in bed. Nuris Lester RN - 05/20/2022 1:09 AM EDT Pt. Transferred to [facility]. RN accompanied patient to floor and handed off to [facility] RN Dottie Hill APRN - 05/19/2022 10:02 AM EDT Vascular Surgery Progress Note Koko Zamora is a 81 y.o. male with w new onset Afib who presents in transfer from [facility] with acute limb ischemia of the LLE. ?? The patient had sudden pain starting at 630 05/15/22, he presented TXR H where he was placed on heparin. [...] management following Dottie Hill APRN 05/19/2022 Pager: [phone] Emily Greer RN - 05/19/2022 6:28 AM EDT OUTCOME EVALUATION NOTE: OUTCOME SUMMARY: Patient AOx4, VSS on RA. Afib on tele. HR controlled w/ PRN metop, given x2. Denies CP, SOB, n/v. See flowsheets for NVC. Dressings to LLE CDI, prevena WV to groin intact. Voiding to urinal. LBM BUFFING TURNER AND COUNTER, patient stating he will maybe try the [...] adequately without difficulty to bedside urinal. LBM BUFFING TURNER AND COUNTER. Up to chair this AM with nursing staff. Worked with PT, tolerated well. Diet changed to regular at 1800.Plan is for cardiac cath on Friday. PLAN MOVING FORWARD: Bleeding precautions Pain management neurovascular checks PT/OT chemical laboratory tester INDIVIDUALIZED FALL PREVENTION INTERVENTIONS: [...] onset Afib who presents in transfer from [facility] with acute limb ischemia [...] mL Intravenous BID ??? PHENobarbitaL 0.12 mg/kg/dose ([place]run[place]) Oral BID ??? thiamine 100 mg Oral [...] management following Dottie Hill APRN 05/18/2022 Pager: [phone] Brannon Isaacs, PT - 05/18/2022 10:00 AM [...] IR Biopsy Spine 07/20/2019 Bobby Marshall MD [facility] INTERVENTIONL RAD ??? IR VERTEBROPLASTY LUMBAR MULTIPLE LEVELS 07/20/2019 IR Vertebroplasty Lumbar Multiple Levels 07/20/2019 Bobby Marshall MD [facility] INTERVENTION[facility] RAD ??? IR VERTEBROPLASTY THORACIC SINGLE LEVEL 10/25/2020 IR Vertebroplasty Thoracic Single Level 10/25/2020 Matt Chisholm MD [facility] INTERVENTIONL RAD ??? PRO EMBLC/THRMBC FEMORAL POPLITEAL AORTO-ILIAC ARTERY Left 05/15/2022 EMBOLECTOMY OR THROMBECTOMY, FEMOROPOPLITEAL, AORTOILIAC ARTERY BY LEG INCISION (WRVU 19.48) performed by Fito Summers MD at [facility] MAIN OR Social History: Pt lives [...] in this evaluation. Time IN / OUT: 7352-5601 Total Minutes, Physical Therapy: 30 Billing Code: Basilio Isaacs, PT Pager: [phone] Physical Therapy Inpatient Rehabilitation Department Emily Sauceda RN - 05/18/2022 4:34 AM EDT OUTCOME EVALUATION NOTE: OUTCOME SUMMARY: Patient AOx4, VSS on 2LNC. Afib on tele. HR above 120, MD aware, PRN IV metop given x1, HR returned to 90's-low 100's. Denies CP, SOB, n/v. See flowsheets for NVC. Dressings to LLE CDI, prevena WV to groin intact. Voiding to urinal. LBM BUFFING TURNER AND COUNTER. Heparin gtt therapeutic. Pain controlled. Patient sleeping [...] adequately without difficulty to bedside urinal. LBM BUFFING TURNER AND COUNTER. Patient not OOB this shift. Currently NPO awaitingprocedure in liaison inspection laboratory assistant. PLAN MOVING FORWARD: Bleeding precautions Pain management neurovascular checks PT/OT NPO for liaison inspection laboratory assistant INDIVIDUALIZED FALL PREVENTION INTERVENTIONS: Patient-specific [...] the Emergency Department as a transfer from [facility] with left lower extremity limb ischemia. He went to [facility] and was startedon heparin and transferred to [facility] for evaluation by vascular surgery [...] he will will be going to the liaison inspection laboratory assistant for evaluation. Will defer PT eval at present but will see as ordered post cardiac catheritizaton. Social Hx:Pt lives with his Ursula in [place], [place] in a 2 level home in [...] WBAT LLE LISBET HERMAN PT Pager # [phone] In-Pt Rehab Medicine Dottie Hill APRN - 05/17/2022 7:42 AM EDT Vascular Surgery Progress Note Koko Zamora is a 81 y.o. male with w new onset Afib who presents in transfer from [facility] with acute limb ischemia [...] mL Intravenous BID ??? PHENobarbitaL 0.24 mg/kg/dose ([place]) Oral BID Followed by ??? [START ON 05/18/2022] PHENobarbitaL 0.12 mg/kg/dose ([place]run[place]) Oral BID ??? thiamine 100 mg Oral [...] dulcolax, miralax bid Renal - I&Os - Coopre out, +voided - on home flomax Activity: as tolerated Consults: Code: Full Dispo: Floor, dispo planning care management following Dottie Hill APRN 05/17/2022 Pager: [phone] Sary Dos Santos, RN - 05/17/2022 12:16 [...] onset Afib who presents in transfer from [facility] with acute limb ischemia [...] mL Intravenous BID ??? PHENobarbitaL 0.48 mg/kg/dose ([place]) Oral BID Followed by ??? [START ON 05/17/2022] PHENobarbitaL 0.24 mg/kg/dose ([place]) Oral BID Followed by ??? [START ON 05/18/2022] PHENobarbitaL 0.12 mg/kg/dose ([place]) Oral BID ??? thiamine 100 mg Oral [...] management following Edward Rodríguez MD 05/16/2022 Pager: [phone] Sary Dos Santos RN - 05/16/2022 12:52 [...] 2129 Hand off to DION Ramirez 3 [place] documented in this encounter H&P Notes Kerry [...] onset Afib who presents in transfer from [facility] with acute limb ischemia [...] IR Biopsy Spine 07/20/2019 Bobby Marshall MD [facility] INTERVENTION[facility] RAD ??? IR VERTEBROPLASTY LUMBAR MULTIPLE LEVELS 07/20/2019 IR Vertebroplasty Lumbar Multiple Levels 07/20/2019 Bobby Marshall MD [facility] INTERVENTION[facility] RAD ??? IR VERTEBROPLASTY THORACIC SINGLE LEVEL 10/25/2020 IR Vertebroplasty Thoracic Single Level 10/25/2020 Matt Chisholm MD [facility] INTERVENTION[facility] RAD Social Hx: Social History [...] Refill ??? fluticasone propionate (FLONASE) 50 mcg/actuation [place], Suspension as needed. ??? fluorouraciL (EFUDEX) 5 [...] and consented. Tim Chicas MD 05/15/2022 Pager: [phone] documented in this encounter ED Notes Lc [...] started on heparin and transferred to [facility] for evaluation by vascular surgery. [...] pt. Arrival. Pt. Arrived at [facility] by EMS at 1150, vascular team at [...] in an outpatient cardiac rehabilitation program at [facility] was discussed. Patient agrees to a referral to this program. Timing will depend on his recovery from Vascular surgery. He is going home w/VNA PT. I gave him the brochure for the program at [facility] for future reference. Care [...] information for follow-up [facility], [facility] [address] [place] [address] Transportation: family or friend will provide Functional [...] Product type* / Secondary Insurance: [facility] Prescription Coverage: Yes This plan was formulated with input from patient and team. All are in agreement with plan. IP RS has communicated with [place] - for initial IMM. RAlmita (Satish) DION López RN/CM - Cellphone: [phone] Pager: [phone] Covering Service RN/CM Plan of Care - [...] catheterization, transferred in hospital bed accompanied by Grounding Engineer RN, remains on telemetry monitoring. Heparin [...] Product type* / Secondary Insurance: [facility] Last Physical Therapy Recommendation: home with home health, home with supervision with None Last Occupational Therapy Recommendation: with Plan for discharge is: Home w/ Services Outpatient Agency/Support Group Needs: None Home Health Services: Registered Nurse, Physical Therapy, Occupational Therapy Agency Referrals: I have met with the patient to: ?? discuss discharge planning needs. ?? provide the [facility], Office of Care Management letter from the Casting Machine Service Operator pertaining to rehab referrals. ?? provide a letter describing our affiliations within the [facility] and educate about their right to choose where referrals are sent. ?? provide a list of Home Health Agencies / Durable Medical Equipment vendors which serve their preferred geographic area. ?? provided patient with [facility] Star Quality Rating handout. They have requested referrals to: [facility]. [address] [place] [address] Note routed to a Bunker Worker who will communicate referrals to facilities and provide any required information. Transportation: family or friend will provide Barriers to discharge: None Plan going forward: Patient is going for a cardiac cath today and plan will come from there. Patientwas recently seen by PT and they recommend VNA at time of discharge. [facility] was routed and pendedat this time. Care Management will continue to follow and assist with discharge planning and coordination of care as indicated. Anticipated Date of Discharge: 05/21/2022 Nataly RICHMOND RN Phone: [phone] Pager: [phone] Plan of Care - Laney Atkins RN [...] CPG GOAL OUTCOME EVALUATION: Consult Note - lJ Gutierrez MD - 05/17/2022 9:02 AM EDT Images from the original note were not included. [facility] [place] [address] [phone] INPATIENT CARDIOLOGY CONSULT NOTE Date of Consultation: 05/17/2022 Admit Date: 05/15/2022 Hospital Day 2 days Reason for Consult: New afib Active Problems: Active Hospital Problems Diagnosis Limb ischemia Resolved Hospital Problems No resolved problems to display. HPI: Koko Zamora is a 81 y.o. male with a PMHx significant for MVP (s/p MV repair 2000), tobacco use, HLD, who presented to [facility] from OSH on 05/15 with acute limb ischemia of LLE and was found to be in atrial fibrillation. Patient had sudden onset LLE pain on 05/15 and presented to [facility], where he was started on heparin and transferred to [facility]. Upon arrival to [facility], patient was in atrial fib with RVR [...] IR Biopsy Spine 07/20/2019 Bobby Marshall MD [facility] RAD IR VERTEBROPLASTY LUMBAR MULTIPLE LEVELS 07/20/2019 IR Vertebroplasty Lumbar Multiple Levels 07/20/2019 Bobby Marshall MD [facility] INTERVENT[facility] RAD IR VERTEBROPLASTY THORACIC SINGLE LEVEL 10/25/2020 IR Vertebroplasty Thoracic Single Level 10/25/2020 Matt Chisholm MD [facility] INTERVENTION[facility] RAD PRO EMBLC/THRMBC FEMORAL POPLITEAL AORTO-ILIAC ARTERY Left 05/15/2022 EMBOLECTOMY OR THROMBECTOMY, FEMOROPOPLITEAL, AORTOILIAC ARTERY BY LEG INCISION (WRVU 19.48) performed by Fito Summers MD at [facility] MAIN OR Allergies Allergen Reactions Aspirin Other (See Comments) GI bleed Out-Patient Medications: Medications Prior to Admission Medication Sig Dispense Refill Last Dose fluorouraciL (EFUDEX) 5 % Cream daily. CRESTOR 40 mg Tablet Take 40 mg by mouth daily. fluticasone propionate (FLONASE) 50 mcg/actuation [place], Suspension as needed. ascorbic acid, vitamin C, [...] 5 mL Intravenous BID PHENobarbitaL 0.24 mg/kg/dose ([place]run[place]) Oral BID Followed by [START ON 05/18/2022] PHENobarbitaL 0.12 mg/kg/dose ([place]run[place]) Oral BID thiamine 100 mg Oral Daily folic acid 1,000 mcg Oral Daily multivitamin with minerals 1 tablet Oral Daily heparin (porcine) infusion 1,200 Units/hr (05/17/22 7992) Family History: No family history on file. [...] ED to Hosp-Admission (Current) from 05/15/[address] [place] [address] Office Visit from 04/17/2021 in Pain and Spine Center at [facility] Weight 79.8 kg (175 lb 14.8 oz) [...] continue to follow Anne-Marie Larson MD Pager [phone] Clinic: [phone] 05/17/22 6:22 PM Initial Assessments - Ifrah [...] Any patient receiving care at [facility] must abide by [place] law. The hierarchy [...] (i) The agent with financial power of general lithographic worker or a conservator appointed in accordance with [...] raised toilet seat Home Address confirmed as: [facility] [facility] [address] Social & Family Supports: All names listed below confirmed with patient as Incorrect. Will notify conifer to correct. Wifes address is same as and phone is [phone]. Extended Emergency Contact Information Primary Emergency Contact: Demarco Zamorana Address: [facility] [place] [address] [facility] Relation: Spouse Current Care Provided by: [...] Product type* / Secondary Insurance: [facility] Prescription Coverage: Yes Preferred Pharmacy: [id number] - [place], [place] - [address] [facility] [address] [place] [address] [facility] - [place], [place] - [address] [facility] [address] [facility] [address] [place] Status: Patient is a : unable to assess Primary Care Provider: Bobby Das MD [phone] Patient/Caregiver Goals of Treatment: to walk again Potential Needs for Transition of Care: none noted per 05/16 IDR Transportation: family will provide Transportation Anticipated: family or friend will provide Concerns to be Addressed: no discharge needs identified Assessment: Patient is admitted to vascular surg service for left lower extremity limb ischemia Plan: Per PT OT recommendations . Has used [employer] in the past. A member of the Care Management team will continue to monitor progress, follow for continuity of care and assist with transition of care planning. Ifrah Bell RN BSN Harness PlacerPourer Bull Ladle of Care Management Pager [phone] Brief Op Note - Erin Garza MD - 05/15/2022 5:04 PM EDT Brief Operative Note Patient Name: Koko Zamora : [id number] MR#: [id number] Case Date: 05/15/2022 Surgeon: Surgeon(s) and Role: [...] - 05/15/2022 2:08 PM EDT [facility] Operative Note Patient Name: Koko Zamora : [id number] MR#: [id number] Case Date: 05/15/2022 Surgeon: Surgeon(s) and Role: [...] Negra Collins MD [facility]STRO[facility] DEPT [place], [place] [address] (Wo rk) 09/05/2022 Appointment Cardiology Trinity Reid MD [facility] CARDIOLOGY [place], [place] 0375 (Wo rk) 09/05/2022 Office Visit Cardiology Trinity Reid MD [facility] CARDIOLOG[facility] [place], [place] 0375 (Wo rk) Scheduled Referrals Name [...] Component Value Ref Test Analysis Performed At [facility] Range Method Time Signature VB Text Department: Vascular Surgery Lab VASCUBASE Report Patient: [id number] (KOKO ZAMORA) CPT: 06034 Referring Physician: FITO SUMMERS ?? Phone: Indications: s/p L EXAMINING OFFICER endart. Diabetes mellitus: no Findings: Right [...] EDT) athologist Signature Heparin UFH 0.42 IU/mL [facility] LABORATORY Comment: Heparin (anti-Xa) [...] Organization Address City/State/ZIP [place] [address] Differential, Automated (05/21/2022 6:15 AM EDT) athologist Signature Neutrophils % 58.8 % [facility] LABORATORY Neutr Abs (ANC) 3.97 1.70 - [facility] 6.10 [facility] x10(3)[facility] LABORATORY Lymphocytes % 25.2 % [facility] LABORATORY Lymphocytes Abs 1.7 0.9 - 3.2 [facility] x10(3)/[facility] LABORATORY Monocytes % 12.9 % [facility] LABORATORY Monocyte Abs 0.9 0.3 - 0.9 [facility] x10(3)[facility] LABORATORY Eosinophils % 2.1 % [facility] LABORATORY Eosinophils Abs 0.1 0.0 - 0.4 [facility] x10(3)/[facility] LABORATORY Basophils % 0.4 % [facility] LABORATORY Basophils Abs 0.0 0.0 - 0.1 [facility] x10(3)/[facility] LABORATORY Immature Gran % 0.60 % [place] [...] Rain Gran Abs 0.04 0.00 - 0.04 x10(3)/[facility] LABORATORY Specimen Anatomical Collection Method Collection Time Receive d Time (Source) Location / / Volume Laterality Blood 05/21/2022 6:15 AM 2 6:38 EDT AM EDT Resulting Agency Comment Spec In Lab Edwadr Rodríguez MD HEMATOLOGY ORDERABLES Performing Organization Address City/State/ZIP [place] [address] (ABNORMAL) Hemogram (05/21/2022 6:15 AM EDT) [facility] gist Method Time Signature WBC 6.8 4.0 - 9.[address] [facility] x[facility](3)/[facility] LABORATORY RBC 3.59 (L) 4.58 - [facility] 5.54 [facility] x10(6)/[facility] LABORATORY Hemoglobin 11.8 (L) 13.7 [facility] 16.5 g/dL [facility] LABORATORY Hematocrit 34.5 (L) 40.5 [facility] 48.5 % [facility] LABORATORY MCV 96.1 (H) 82.9 - [facility] XIAO 93.1 [facility] LABORATORY MCH 32.9 (H) 27.5 - [facility] 32.1 pg [facility] LABORATORY MCHC 34.2 32.0 - [facility] 35.7 g/dL [facility] LABORATORY Platelets 198 145 - 357 [facility] x10(3)/[facility] LABORATORY RDWSD 44.9 36.0 - [facility]0 [facility] LABORATORY RDWCV 12.6 11.4 - [facility] X[facility]O 13.8 % [facility] LABORATORY MPV 10.0 7.6 - 12.9 [facility] nRBC % Auto 0.3 % [facility] LABORATORY nRBC Abs Auto 0.020 (H) 0.000 - [facility] 0.000 [facility] x10(3)/[facility] LABORATORY Specimen Anatomical Collection Method Collection Time Receive d Time (Source) Location / / Volume Laterality Blood 05/21/2022 6:15 AM 2 6:38 EDT AM EDT Resulting Agency Comment Spec In Lab Edward Rodríguez MD HEMATOLOGY ORDERABLES Performing Organization Address City/State/ZIP [place] [address] EKG 12 Lead (05/20/2022 7:04 PM EDT) Component Value Ref Range Test Analysis Performed Pathologis t Method Time At Signature Ventricular rate 101 BPM MUSE SYSTEM QRS Duration 116 ms MUSE SYSTEM Q-T Interval 378 ms MUSE SYSTEM QTC Calculated 490 ms MUSE SYSTEM (Bezet) Calculated R [place] -53 degrees MUSE SYSTEM Calculated T [place] 101 degrees MUSE SYSTEM INTERPRETATION Atrial fibrillation [...] Laterality Volume Narrative 05/20/2022 7:09 PM EDT ?[facility] ? Cardiac Cathete rization/Intervention Report ? Patient Name: Koko Zamora ? Procedure Date: 05/20/2022 ? A #: [id number] ? Primary Physician: Abundio Servin ? Case #: [id number] ? File Name: [id number] ? Catheterization Order Number: [id number] ? [facility] ? Final Report [place], [place] ? Patient Name: ? Koko J. Klarissa uson ? ID#: ?[id number] ? : ?1940 ? Procedure Date: ? [...] procedure was Urgent. The indication for ?the liaison inspection laboratory assistant visit is cardiomyo nita. Chest [...] ?3.5 guiding catheter and a 3.5 [address] [facility] [address] ??20 Mhz. ??Imaging [...] A premounted 2. 75 x 30 mm [place] ([place]) was deployed ? with a maximum [...] require ?modification of this regimen. C onsult [facility] [place] for ?questions. ?The 1 year [...] note might be different from the original. [facility] Cardiac Catheterization/Intervention Re port Patient Name: Koko Zamora Procedure Date: 05/20/2022 A #: [id number] Primary Physician: Abundio Servin Case #: File Name: [id number] Catheterization Order Number: [id number] [facility] Final Report [place], [place] Patient Name: Koko Zamora ID#: [id number] : 1940 Procedure Date: May 20, 2022 [...] designated a s ASA Class IV. The [facility] clinical frailty scale is 3: [...] e was Urgent. The indication for the liaison inspection laboratory assistant visit is cardiomyopathy. C hest [...] 3.5 guiding catheter and a 3.[address] [facility] [address] 20 Mhz. Imaging [...] atmospheres. A premounted 2.75 x 30 mm [place] ([place]O) was deployed with a maximum inflation [...] - 199 [facility] [place] mg/dL [facility] LABORATORY Comment: Supplemental ranges: <140 mg/dL before meals <180 mg/dL all other times of the day Specimen Anatomical Collection Method Collection Time Receive d Time (Source) Location / / Volume Laterality Blood 05/20/2022 5:42 PM 5:42 EDT PM EDT Fito Summers MD POINT OF CARE TEST ORDERABLE S Performing Organization Address City/State/[place] [address] (ABNORMAL) BMP w/fasting Glucose (05/20/2022 10:50 AM EDT) P athologist Signature Glucose 152 (H) 65 - [address] [facility] Fasting mg/dL [facility] LABORATORY Comment: ?Fasting* Glucose Interpretive C [...] of Diabetes Mellitus, Position Statement from the [place] [employer]. ??Diabete s Care, Volume 33, [...] Organization Address City/State/Z[place] [address] Heparin (unfractionated) Level (05/20/2022 5:02 AM EDT) athologist Signature Heparin UFH 0.57 IU/mL [facility] LABORATORY Comment: Heparin (anti-Xa) [...] Organization Address City/State/ZIP [place] [address] (ABNORMAL) Differential, Automated (05/20/2022 5:02 AM EDT) Patholo gist Method Time Signature Neutrophils % 58.1 % [facility] LABORATORY Neutr Abs (ANC) 4.52 1.70 - [facility] 6.10 [facility] x10(3)/[facility] LABORATORY Lymphocytes % 24.1 % [facility] LABORATORY Lymphocytes Abs 1.9 0.9 - 3.2 [facility] x10(3)/[facility] LABORATORY Monocytes % 13.8 % [facility] LABORATORY Monocyte Abs 1.1 (H) 0.3 - 0.9 [facility] x10(3)/[facility] LABORATORY Eosinophils % 2.6 % [facility] LABORATORY Eosinophils Abs 0.2 0.0 - 0.4 [facility] x10(3)/[facility] LABORATORY Basophils % 0.8 % [facility] LABORATORY Basophils Abs 0.1 0.0 - 0.1 [facility] x10(3)/[facility] LABORATORY Immature Gran % 0.60 % [place] [...] Gran Abs 0.05 (H) 0.00 - 0.04 x10(3)/[facility] LABORATORY Specimen Anatomical Collection Method Collection Time Receive d Time (Source) Location / / Volume Laterality Blood 05/20/2022 5:02 AM 5:19 EDT AM EDT Resulting Agency Comment Spec In Lab Edward Rodríguez MD HEMATOLOGY ORDERABLES Performing Organization Address City/State/ZIP [place] [address] (ABNORMAL) Hemogram (05/20/2022 5:02 AM EDT) Analysis Performed At Patho logist Time Signature WBC 7.8 4.0 - 9.5 [facility] x10(3)/[facility] LABORATORY RBC 3.53 (L) 4.58 - [facility] XIAO 5.54 [facility] x10(6)/[facility] LABORATORY Hemoglobin 11.4 (L) 13.7 - [facility] 16[facility]5 g/dL [facility] LABORATORY Hematocrit 34.3 (L) 40.5 - [facility] XIAO 48.5 % [facility] LABORATORY MCV 97.2 (H) 82.9 - [facility] 93.1 [facility] LABORATORY MCH 32.3 (H) 27.5 - [facility] 32.1 pg [facility] LABORATORY MCHC 33.2 32.0 - [facility] 35.7 g/dL [facility] LABORATORY Platelets 181 145 - 357 [facility] x10(3)/[facility] LABORATORY RDWSD 46.4 (H) 36.0 - [facility] X[facility] 45.0 [facility] LABORATORY RDWCV 13.0 11.4 - [facility] 13.8 % [facility] LABORATORY MPV 10.4 7.6 - 12.9 [facility] LABORATORY nRBC % Auto 0.0 % [facility] LABORATORY nRBC Abs Auto 0.000 0.000 - [facility] 0.000 [facility] x10(3)/[facility] LABORATORY Specimen Anatomical Collection Method Collection Time Receive d Time (Source) Location / / Volume Laterality Blood 05/20/2022 5:02 AM 2 5:19 EDT AM EDT Resulting Agency Comment Spec In Lab Edward Rodríguez MD HEMATOLOGY ORDERABLES Performing Organization Address City/State/[place] [address] Heparin (unfractionated) Level (05/19/2022 3:26 AM EDT) P athologist Signature Heparin UFH 0.59 IU/mL [facility] LABORATORY Comment: Heparin (anti-Xa) [...] Organization Address City/State/[place] [address] (ABNORMAL) Differential, Automated (05/19/2022 3:26 AM EDT) Patholo gist Method Time Signature Neutrophils % 62.1 % [facility] LABORATORY Neutr Abs (ANC) 4.59 1.70 - [facility] 6.10 [facility] x10(3)/[facility] LABORATORY Lymphocytes % 22.1 % [facility] LABORATORY Lymphocytes Abs 1.6 0.9 - 3.2 [facility] x10(3)/[facility] LABORATORY Monocytes % 13.5 % [facility] LABORATORY Monocyte Abs 1.0 (H) 0.3 - 0.9 [facility] x10(3)/[facility] LABORATORY Eosinophils % 1.3 % [facility] LABORATORY Eosinophils Abs 0.1 0.0 - 0.4 [facility] x10(3)/[facility] LABORATORY Basophils % 0.5 % [facility] LABORATORY Basophils Abs 0.0 0.0 - 0.1 [facility] x10(3)/[facility] LABORATORY Immature Gran % 0.50 % [place] [...] Rain Gran Abs 0.04 0.00 - 0.04 x10(3)/[facility] LABORATORY Specimen Anatomical Collection Method Collection Time Receive d Time (Source) Location / / Volume Laterality Blood 05/19/2022 3:26 AM 2 3:59 EDT AM EDT Resulting Agency Comment Spec In Lab Edward Rodríguez MD HEMATOLOGY ORDERABLES Performing Organization Address City/State/ZIP [place] [address] (ABNORMAL) Hemogram (05/19/2022 3:26 AM EDT) Analysis Performed At Patho logist Time Signature WBC 7.4 4.0 - 9.5 [facility] x10(3)/[facility] LABORATORY RBC 3.74 (L) 4.58 - [facility] 5.54 [facility] x10(6)/[facility] LABORATORY Hemoglobin 12.1 (L) 13.7 - [facility] 16.5 g/dL [facility] LABORATORY Hematocrit 36.4 (L) 40.5 - [facility] [place] 48.5 % [facility] LABORATORY MCV 97.3 (H) 82.9 - [facility] 93.1 [facility] LABORATORY MCH 32.4 (H) 27.5 - [facility] [place] 32.1 pg [facility] LABORATORY MCHC 33.2 32.0 - [facility] [place] 35.7 g/dL [facility] LABORATORY Platelets 168 145 - 357 [facility] x10(3)/[facility] LABORATORY RDWSD 46.9 (H) 36.0 - [facility] 45.0 [facility] LABORATORY RDWCV 13.0 11.4 - [facility] 13.8 % [facility] LABORATORY MPV 10.5 7.6 - 12.9 [facility] LABORATORY nRBC % Auto 0.0 % [facility] LABORATORY nRBC Abs Auto 0.000 0.000 - [facility] x10(3)/[facility] LABORATORY Specimen Anatomical Collection Method Collection Time Receive d Time (Source) Location / / Volume Laterality Blood 05/19/2022 3:26 AM 2 3:59 EDT AM EDT Resulting Agency Comment Spec In Lab Edward Rodríguez MD HEMATOLOGY ORDERABLES Performing Organization Address City/State/ZIP [place] [address] TSH (05/18/2022 8:00 PM EDT) P athologist Signature TSH 2.27 0.27 - 4.20 [facility] [place] mcIU/mL [facility] LABORATORY Comment: Reference Interval (mcIU/mL): Females: ??First Trimester: 0.23-3.88 ??Second Trimester: 0.22-3.90 ??Third Trimester: 0.44-4.66 Specimen Anatomical Collection Method Collection Time Receive d Time (Source) Location / / Volume Laterality Blood 05/18/2022 8:00 PM 2 8:06 EDT PM EDT Resulting Agency Comment Spec In Lab Fito Summers MD CHEMISTRY ORDERABLES Performing Organization Address City/State/ZIP Code Phon e Number [address] (ABNORMAL) Differential, Automated (05/18/2022 3:34 AM EDT) [facility] Method Time Signature Neutrophils % 67.2 % [facility] LABORATORY Neutr Abs (ANC) 5.89 1.70 - [facility] 6.10 [facility] x10(3)/[facility] LABORATORY Lymphocytes % 17.1 % [facility] LABORATORY Lymphocytes Abs 1.5 0.9 - 3.2 [facility] x10(3)/[facility] LABORATORY Monocytes % 13.6 % [facility] LABORATORY Monocyte Abs 1.2 (H) 0.3 - 0.9 [facility] x10(3)/[facility] LABORATORY Eosinophils % 1.0 % [facility] LABORATORY Eosinophils Abs 0.1 0.0 - 0.4 [facility] x10(3)/[facility] LABORATORY Basophils % 0.6 % [facility] LABORATORY Basophils Abs 0.0 0.0 - 0.1 [facility] x10(3)/[facility] LABORATORY Immature Gran % 0.50 % [place] [...] Rain Gran Abs 0.04 0.00 - 0.04 x10(3)/[facility] LABORATORY Specimen Anatomical Collection Method Collection Time Receive d Time (Source) Location / / Volume Laterality Blood 05/18/2022 3:34 AM 3:48 EDT AM EDT Resulting Agency Comment Spec In Lab Edward Rodríguez MD HEMATOLOGY ORDERABLES Performing Organization Address City/[facility]/ZIP Code Phon e Number [address] (ABNORMAL) Hemogram (05/18/2022 3:34 AM EDT) Analysis Performed At Patho logist Time Signature WBC 8.8 4.0 - 9.5 [facility] x10(3)/[facility] LABORATORY RBC 3.45 (L) 4.58 - [facility] 5.54 [facility] x10(6)/[facility] LABORATORY Hemoglobin 11.2 (L) 13.7 - [facility] 16[facility] g/dL [facility] LABORATORY Hematocrit 33.0 (L) 40.5 - [facility] 48.5 % [facility] LABORATORY MCV 95.7 (H) 82.9 - [facility] 93.1 [facility] LABORATORY MCH 32.5 (H) 27.5 - [facility] 32.1 pg [facility] LABORATORY MCHC 33.9 32.0 - [facility] 35.7 g/dL [facility] LABORATORY Platelets 130 (L) 145 - 357 [facility] x10(3)/[facility] LABORATORY RDWSD 46.2 (H) 36.0 - [facility] 45.0 [facility] LABORATORY RDWCV 13.2 11.4 - [facility] 13.8 % [facility] LABORATORY MPV 10.8 7.6 - 12.9 [facility] LABORATORY nRBC % Auto 0.0 % [facility] LABORATORY nRBC Abs Auto 0.000 0.000 - [facility] 0.000 [facility] x10(3)/[facility] LABORATORY Specimen Anatomical Collection Method Collection Time Receive d Time (Source) Location / / Volume Laterality Blood 05/18/2022 3:34 AM 3:48 EDT AM EDT Resulting Agency Comment Spec In Lab Edward Rodríguez MD HEMATOLOGY ORDERABLES Performing Organization Address City/State/[place] [address] Heparin (unfractionated) Level (05/18/2022 [...] Summers MD HEMATOLOGY ORDERABLES Performing Organization Address City/[facility]/[place] [address] Magnesium (05/17/2022 3:33 AM EDT) athologist Signature Magnesium 0.76 0.69 - 1.07 [facility] mmol/L [facility] LABORATORY Specimen Anatomical Collection Method Collection Time Receive d Time (Source) Location / / Volume Laterality Blood Venous Draw / 05/17/2022 3:33 AM 05/17/20 4:05 Unknown EDT AM EDT Resulting Agency Comment Spec In Lab Dottie Hill APRN CHEMISTRY ORDERABLES Performing Organization Address City/[facility]/[place] [address] (ABNORMAL) Basic Metabolic Panel (non-fasting) (05/17/2022 3:33 AM EDT) athologist Signature Glucose Lvl 158 65 - 199 [facility] mg/dL [facility] LABORATORY Comment: Diabetes: >=200 mg/dL plus [...] Organization Address City/State/ZIP [place] [address] (ABNORMAL) Differential, Automated (05/17/2022 3:33 AM EDT) [facility] gist Method Time Signature Neutrophils % 65.5 % [facility] LABORATORY Neutr Abs (ANC) 6.84 (H) 1.70 - [facility] 6.10 [facility] x10(3)/[facility] LABORATORY Lymphocytes % 19.7 % [facility] LABORATORY Lymphocytes Abs 2.1 0.9 - 3.2 [facility] x10(3)/[facility] LABORATORY Monocytes % 13.1 % [facility] LABORATORY Monocyte Abs 1.4 (H) 0.3 - 0.9 [facility] x10(3)/[facility] LABORATORY Eosinophils % 0.6 % [facility] LABORATORY Eosinophils Abs 0.1 0.0 - 0.4 [facility] x10(3)/[facility] LABORATORY Basophils % 0.6 % [facility] LABORATORY Basophils Abs 0.1 0.0 - 0.1 [facility] x10(3)/[facility] LABORATORY Immature Gran % 0.50 [...] Gran Abs 0.05 (H) 0.00 - 0.04 x10(3)/[facility] LABORATORY Specimen Anatomical Collection Method Collection Time Receive d Time (Source) Location / / Volume Laterality Blood 05/17/2022 3:33 AM 3:53 EDT AM EDT Resulting Agency Comment Spec In Lab Edward Rodríguez MD HEMATOLOGY ORDERABLES Performing Organization Address City/State/ZIP [place] [address] (ABNORMAL) Hemogram (05/17/2022 3:33 AM EDT) Analysis Performed At Patho logist Time Signature WBC 10.4 (H) 4.0 - 9.5 [facility] x10(3)/[facility] LABORATORY RBC 3.72 (L) 4.58 - [facility] 5.54 [facility] x10(6)/[facility] LABORATORY Hemoglobin 12.0 (L) 13.7 - [facility] 16.5 g/dL [facility] LABORATORY Hematocrit 36.4 (L) 40.5 - [facility] 48.5 % [facility] LABORATORY MCV 97.8 (H) 82.9 - [facility] 93.1 [facility] LABORATORY MCH 32.3 (H) 27.5 - [facility] [place] 32.1 pg [facility] LABORATORY MCHC 33.0 32.0 - [facility] 35.7 g/dL [facility] LABORATORY Platelets 149 145 - 357 [facility] x10(3)/[facility] LABORATORY RDWSD 48.7 (H) 36.0 - [facility] 45.0 [facility] LABORATORY RDWCV 13.5 11.4 - [facility] 13.8 % [facility] LABORATORY MPV 10.6 7.6 - 12.9 [facility] LABORATORY nRBC % Auto 0.0 % [facility] LABORATORY nRBC Abs Auto 0.000 0.000 - [facility] 0.000 [facility] x10(3)/[facility] LABORATORY Specimen Anatomical Collection Method Collection Time Receive d Time (Source) Location / / Volume Laterality Blood 05/17/2022 3:33 AM 3:53 EDT AM EDT Resulting Agency Comment Spec In Lab Edward Rodríguez MD HEMATOLOGY ORDERABLES Performing Organization Address City/[facility]/Z[place] [address] (ABNORMAL) Urinalysis Microscopic Exam [...] Organization Address City/State/ZIP Code Phon e [place] [address] (ABNORMAL) Urinalysis with reflex Culture (05/16/2022 11:15 PM EDT) Patholo gist Method Time Signature Glucose UA Negative Negative [facility] mg/dL [facility] LABORATORY Protein UA Negative Negative [facility] mg/dL [facility] LABORATORY Bilirubin UA Negative Negative [facility] mg/dL [facility] LABORATORY Comment: Clinical correlation required for positi ve Urine Bilirubin results as false positive may occur with some drugs and d rug related products. If a false positive is suspected a serum total bili quarles should be considered if clinically indicated. Urobilinogen UA Normal Normal mg/dL [facility] LABORATORY pH UA 6.0 5.0 - 8.0 [facility] LABORATORY Blood UA Small (A) Negative mg/dL [facility] LABORATORY Ketones UA Trace (A) Negative mg/dL [facility] LABOR[facility]ORY Nitrite UA Negative Negative [facility] Leukocytes UA Negative Negative [facility] LABORATORY Appearance UA Clear Clear [facility] LABORATORY Spec [place] UA 1.021 1.005 - 1.030 [facility] LABORATORY Color UA Yellow Yellow [facility] Culture Reflexed No [facility] LABOR[facility]ORY Specimen Anatomical Collection Method Collection Time Receive d Time (Source) Location / / Volume Laterality Clean Catch 05/16/2022 11:15 05/16/2022 Urine PM EDT 11:30 PM EDT Resulting Agency Comment Spec In Lab Fito Summers MD URINE ORDERABLES Performing Organization Address City/State/ZIP [place] [address] Heparin (unfractionated) Level (05/16/2022 10:59 PM EDT) P athologist Signature Heparin UFH 0.65 IU/mL [facility] LABORATORY Comment: Specimen drawn [...] Organization Address City/State/ZIP Code Phon e Number [place] [id number] XR Chest One View [...] have questions please contact the health care transitions manager that requested your imaging first. ? [...] No displaced rib fracture. Procedure Note Tiffanie Geroge MD - 05/16/2022 EXAMINATION: XR CHEST ONE [...] have questions please contact the health care transitions manager that requested your imaging first. Fito Summers MD IMG DX ORDERABLES EKG 12 Lead (05/16/2022 8:57 PM EDT) Component Value Ref Range Test Analysis Performed Pathologis t Method Time At Signature Ventricular rate 117 BPM MUSE SYSTEM QRS Duration 112 ms MUSE SYSTEM Q-T Interval 346 ms MUSE SYSTEM QTC Calculated 482 ms MUSE SYSTEM (Bezet) Calculated R [place] -48 degrees MUSE SYSTEM Calculated T [place] 111 degrees MUSE SYSTEM INTERPRETATION Atrial fibrillation [...] Summers MD ECG ORDERABLES Performing Organization Address City/[facility]/ZIP Code Phon e Number MUSE SYSTEM Heparin (unfractionated) Level (05/16/2022 4:34 PM EDT) P athologist Signature Heparin UFH 0.53 IU/mL [facility] LABORATORY Comment: Heparin (anti-Xa) [...] Summers MD HEMATOLOGY ORDERABLES Performing Organization Address City/[facility]/ZIP [place] [address] ECHOCARDIOGRAM COMPLETE W CONTRAST (05/16/2022 12:49 PM EDT) P athologist Signature EF 28 HEARTLAB SYSTEM Anatomical Region Laterality Modality Cardiac Other Specimen (Source) Anatomical Collection Method Collection Time Re ceived Time Location / / Volume Laterality 05/16/2022 11:22 AM EDT Narrative 05/16/2022 1:54 PM EDT ?[facility] ?[address] ? [place] [address] ?Voice: ?Fax: ? Echocardiogram Report Name: KOKO ZAMORA ?Study Date: 05/16/2022 11:22 AM ? Patient Location: 3T 0303 B : 1940 ? Height: 67.5 in ? Account: [id number] Age: 81 yrs ? Weight: 176 lb Gender: Male ?BSA: 1.9 m2 Ordering Physician: FITO SUMMERS Referring Physician: MALI FLORIAN Performed By: Jolene Bernard RDCS Exam Location: [facility]. Interpretation Summary Left ventricle is [...] and LV systolic dysfunction are new. Procedure [id number]. Image enhancement Optiso n was used for [...] diffuse Procedure Note Gladys Jaime MD - 05/16/2022Hellne jasmine of this note [place] [address] Voice: Fax: Echocardiogram Report Name: KOKO ZAMORA Study Date: 05/2022 11:22 AM Patient Location: [address] [place] [address] : 1940 Height: 67.5 in Account: [id number] Age: 81 yrs Weight: 176 lb Gender: Male BSA: 1.9 m2 Ordering Physician: FITO SUMMERS Referring Physician: MALI FLORIAN Performed By: Jolene Bernard RDCS Exam Location: [facility]. Interpretation Summary Left ventricle is [...] and LV systolic dysfunction are new. Procedure [id number]. Image enhancement Optiso n was used for [...] (ABNORMAL) Differential, Automated (05/16/2022 3:01 AM EDT) [facility] Method Time Signature Neutrophils % 78.8 % [facility] LABORATORY Neutr Abs (ANC) 9.11 (H) 1.70 - [facility] 6.10 [facility] x10(3)/[facility] LABORATORY Lymphocytes % 9.4 % [facility] LABORATORY Lymphocytes Abs 1.1 0.9 - 3.2 [facility] x10(3)/[facility] LABORATORY Monocytes % 10.9 % [facility] LABORATORY Monocyte Abs 1.3 (H) 0.3 - 0.9 [facility] x10(3)/[facility] LABORATORY Eosinophils % 0.0 % [facility] LABORATORY Eosinophils Abs 0.0 0.0 - 0.4 [facility] x10(3)/[facility] LABORATORY Basophils % 0.3 % [facility] LABORATORY Basophils Abs 0.0 0.0 - 0.1 [facility] x10(3)/[facility] LABORATORY Immature Gran % 0.60 [...] Gran Abs 0.07 (H) 0.00 - 0.04 x10(3)/[facility] LABORATORY Specimen Anatomical Collection Method Collection Time Receive d Time (Source) Location / / Volume Laterality Blood 05/16/2022 3:01 AM 3:36 EDT AM EDT Resulting Agency Comment Spec In Lab Erin Garza MD HEMATOLOGY ORDERABLES Performing Organization Address City/State/ZIP Code Phon e Number [place] [phone] HOSPITAL LAB[address]ATORY Drive (ABNORMAL) Hemogram (05/16/2022 3:01 AM EDT) Analysis Performed At Patho logist Time Signature WBC 11.6 (H) 4.0 - 9.5 [facility] x10(3)/[facility] LABORATORY RBC 3.62 (L) 4.58 - [facility] 5[facility]54 [facility] x10(6)/[facility] LABORATORY Hemoglobin 12.0 (L) 13.7 - [facility] 16.5 g/dL [facility] Hematocrit 35.3 (L) 40.5 - [facility] 48.5 % [facility] LABORATORY MCV 97.5 (H) 82.[address] [facility] 93.1 [facility] LABORATORY MCH 33.1 (H) 27.5 - [facility] 32.1 pg [facility] LABORATORY MCHC 34.0 32.0 - [facility] 35.7 g/dL [facility] LABORATORY Platelets 151 145 - 357 [facility] x10(3)/[facility] RDWSD 47.6 (H) 36.0 - [facility] 45.0 [facility] RDWCV 13.3 11.4 - [facility] 13.8 % [facility] LABORATORY MPV 10.5 7.6 - 12.9 [facility] LABORATORY nRBC % Auto 0.0 % [facility] LABORATORY nRBC Abs Auto 0.000 0.000 - [facility] 0.000 [facility] x10(3)/[facility] LABORATORY Specimen Anatomical Collection Method Collection Time Receive d Time (Source) Location / / Volume Laterality Blood 05/16/2022 3:01 AM 2 3:36 EDT AM EDT Resulting Agency Comment Spec In Lab Erin Garza MD HEMATOLOGY ORDERABLES Performing Organization Address City/State/ZIP Code Phon e Number [address] Phosphorus (05/16/2022 3:01 AM EDT) P athologist Signature Phosphorus 3.7 2.5 - 4.[address] [facility] mg/dL [facility] LABORATORY Specimen Anatomical Collection Method Collection Time Receive d Time (Source) Location / / Volume Laterality Blood 05/16/2022 3:01 AM 2 3:36 EDT AM EDT Resulting Agency Comment Spec In Lab Fito Summers MD CHEMISTRY ORDERABLES Performing Organization Address City/State/ZIP Code Phon e Number [address] Magnesium (05/16/2022 3:01 AM EDT) P athologist Signature Magnesium 0.77 0.69 - 1.[address] [facility] mmol/L [facility] LABORATORY Specimen Anatomical Collection Method Collection Time Receive d Time (Source) Location / / Volume Laterality Blood 05/16/2022 3:01 AM 2 3:36 EDT AM EDT Resulting Agency Comment Spec In Lab Fito Summers MD CHEMISTRY ORDERABLES Performing Organization Address City/[facility]/ZIP Code Phon e Number [address] (ABNORMAL) Basic Metabolic Panel (non-fasting) (05/16/2022 3:01 AM EDT) P athologist Signature Glucose Lvl 222 (H) 65 - [address] [facility] mg/dL [facility] LABORATORY Comment: Diabetes: >=200 mg/dL plus [...] Organization Address City/State/Z[place] [address] (ABNORMAL) BLOOD GAS 2 ARTERIAL (05/15/2022 3:33 PM EDT) Analysis Performed At Patho logist Time Signature pH Art 7.33 (L) 7.35 - [facility] 7.45 [facility] LABORATORY pCO2 Art 41 35 - 45 [facility] mmHg [facility] LABORATORY pO2 Art 131 (H) 85 - 104 [facility] LABORATORY HCO3 Art 21.1 20.0 - [facility] 26.0 [facility] mmol/L [facility] LABORATORY BE Art -4.8 (L) -3.0 - 3.0 [facility] mmol/L [facility] LABORATORY Hgb Blood Gas 13.4 (L) 13.7 - [facility] 16.5 g/dL [facility] O2HB Art 96.9 94.0 - [facility] 97.0 % [facility] LABORATORY COHB Art 1.4 % [facility] LABORATORY Comment: Nonsmokers: 0.5-1.5% COHB Smokers: Variable, but usually less than 10% Toxic: 20-30% COHB Lethal: Greater than 60% COHB METHB Art 0.3 <=1.5 % [facility] LABORATORY Na Whole Blood 139 135 [...] Organization Address City/State/ZIP [place] [address] (ABNORMAL) BLOOD GAS 2 ARTERIAL (05/15/2022 2:06 PM EDT) Analysis Performed At Patho logist Time Signature pH Art 7.39 7.35 - [facility] 7.45 [facility] LABORATORY pCO2 Art 35 35 - 45 [facility] mmHg [facility] LABORATORY pO2 Art 135 (H) 85 - 104 [facility] LABORATORY HCO3 Art 20.8 20.0 - [facility] 26.0 [facility] mmol/L [facility] LABORATORY BE Art -4.2 (L) -3.0 - 3.0 [facility] mmol/L [facility] LABORATORY Hgb Blood Gas 14.5 13.7 - [facility] 16.5 g/dL [facility] O2HB Art 97.2 (H) 94.0 - [facility] 97.0 % [facility] LABORATORY COHB Art 1.2 % [facility] LABORATORY Comment: Nonsmokers: 0.5-1.5% COHB Smokers: Variable, but usually less than 10% Toxic: 20-30% COHB Lethal: Greater than 60% COHB METHB Art 0.3 <=1.5 % [facility] LABORATORY Na Whole Blood 140 135 [...] Torre MD CHEMISTRY ORDERABLES Performing Organization Address City/[facility]/[place] [address] (ABNORMAL) Prothrombin Time (05/15/2022 12:30 PM EDT) P athologist Signature PT 12.9 (H) 9.4 - 12.5 [facility] LABORATORY INR 1.1 [facility] [...] Morales DO HEMATOLOGY ORDERABLES Performing Organization Address City/[facility]/ZIP [facility] [place] [place] [address] (ABNORMAL) APTT (05/15/2022 12:30 [...] Organization Address City/State/[place] [address] Gold Tube HOLD (05/15/2022 12:20 PM EDT) P athologist Signature Gold Hold Sample in [facility]. [facility] LABORATORY Specimen Anatomical Collection Method Collection Time Receive d Time (Source) Location / / Volume Laterality Blood No Charge / 05/15/2022 12:20 05/15/2022 Unknown PM EDT 12:20 PM EDT Lc Tan Kimberly TRIPP CHEMISTRY ORDERABLES Performing Organization Address City/[facility]/[place] [address] Type and Screen Validity (05/15/2022 12:00 PM EDT) [facility] gist Method Time Signature T&S only valid [facility] LABORATORY Comment: This Type and Screen result is only valid at the [facility] Specimen Anatomical Collection Method Collection Time Receive d Time (Source) Location / / Volume Laterality Blood 05/15/2022 12:00 05/15/2022 PM EDT 12:17 PM EDT Resulting Agency Comment Spec In Lab Lc Harris PA BLOOD BANK ORDERABLES Performing Organization Address City/[facility]/ZIP Code Phon e Number [address] ABORH Recheck Status (05/15/2022 12:00 PM EDT) [facility] gist Method Time Signature ABORH Recheck Order Placed [facility] K Order [facility] LABORATORY ABORH Type Complete [facility] LABORATORY Specimen Anatomical Collection Method Collection Time Receive d Time (Source) Location / / Volume Laterality Blood 05/15/2022 12:00 05/15/2022 PM EDT 12:17 PM EDT Resulting Agency Comment Spec In Lab Lc Tan Kimberly PA BLOOD BANK ORDERABLES Performing Organization Address City/State/[place] [address] CK (05/15/2022 12:00 PM EDT) P athologist Signature CK, Total 87 0 - 200 [facility] unit/L [facility] LABORATORY Specimen Anatomical Collection Method Collection Time Receive d Time (Source) Location / / Volume Laterality Blood Venous Draw / 05/15/2022 12:00 05/15/2022 Unknown PM EDT 12:19 PM EDT Resulting Agency Comment Spec In Lab Fito Summers MD CHEMISTRY ORDERABLES Performing Organization Address City/State/[place] [address] Antibody screen (05/15/2022 12:00 PM EDT) [facility] Method Time Signature Ab Screen Negative [facility] LABORATORY Expires at 05/18/2022 [facility] 2359 on: [facility] LABORATORY Specimen Anatomical Collection Method Collection Time Receive d Time (Source) Location / / Volume Laterality Blood 05/15/2022 12:00 05/15/2022 PM EDT 12:17 PM EDT Resulting Agency Comment Spec In Lab Lc TRIPP BLOOD BANK ORDERABLES Performing Organization Address City/[facility]/ZIP Code Phon e Number [address] ABO/Rh Typing (05/15/2022 12:00 PM EDT) athologist Signature ABORh Type O Pos [facility] LABORATORY Specimen Anatomical Collection Method Collection Time Receive d Time (Source) Location / / Volume Laterality Blood 05/15/2022 12:00 05/15/2022 PM EDT 12:17 PM EDT Resulting Agency Comment Spec In Lab Lc TRIPP BLOOD BANK ORDERABLES Performing Organization Address City/[facility]/[place] [address] (ABNORMAL) Differential, Automated (05/15/2022 12:00 PM EDT) [facility] Method Time Signature Neutrophils % 79.4 % [facility] LABORATORY Neutr Abs (ANC) 7.49 (H) 1.70 - [facility] 6.10 [facility] x10(3)/[facility] L LABORATORY Lymphocytes % 11.3 % [facility] LABORATORY Lymphocytes Abs 1.1 0.9 - 3.2 [facility] x10(3)/[facility] LABORATORY Monocytes % 7.8 % [facility] LABORATORY Monocyte Abs 0.7 0.3 - 0.9 [facility] x10(3)/[facility] LABORATORY Eosinophils % 0.6 % [facility] LABORATORY Eosinophils Abs 0.1 0.0 - 0.4 [facility] x10(3)/[facility] LABORATORY Basophils % 0.6 % [facility] LABORATORY Basophils Abs 0.1 0.0 - 0.1 [facility] x10(3)/[facility] LABORATORY Immature Gran % 0.30 [...] Rain Gran Abs 0.03 0.00 - 0.04 x10(3)/[facility] LAB[facility] Specimen Anatomical Collection Method Collection Time Receive d Time (Source) Location / / Volume Laterality Blood 05/15/2022 12:00 05/15/2022 PM EDT 12:19 PM EDT Resulting Agency Comment Spec In Lab Lc TRIPP HEMATOLOGY ORDERABLES Performing Organization Address City/State/ZIP [place] [address] (ABNORMAL) Hemogram (05/15/2022 12:00 PM EDT) Analysis Performed At Patho logist Time Signature WBC 9.4 4.0 - 9.5 [facility] x10(3)/[facility] LABORATORY RBC 4.48 (L) 4.58 - [facility] 5.54 [facility] x10(6)/[facility] LABORATORY Hemoglobin 14.5 13.7 - [facility] 16.5 g/dL [facility] LABORATORY Hematocrit 42.4 40.5 - [facility] 48.5 % [facility] LABORATORY MCV 94.6 (H) 82.9 - [facility] 93.1 [facility] LABORATORY MCH 32.4 (H) 27.5 - [facility] 32.1 pg [facility] LABORATORY MCHC 34.2 32.0 - [facility] 35.7 g/dL [facility] LABORATORY Platelets 209 145 - 357 [facility] x10(3)/[facility] LABORATORY RDWSD 45.9 (H) 36.0 - [facility]0 [facility] LABORATORY RDWCV 13.1 11.4 - [facility] 13.8 % [facility] LABORATORY MPV 10.5 7.6 - 12.9 [facility] LABORATORY nRBC % Auto 0.0 % [facility] LABORATORY nRBC Abs Auto 0.000 0.000 - [facility] 0.000 [facility] x10(3)/[facility] LABORATORY Specimen Anatomical Collection Method Collection Time Receive d Time (Source) Location / / Volume Laterality Blood 05/15/2022 12:00 05/15/2022 PM EDT 12:19 PM EDT Resulting Agency Comment Spec In Lab Lc TRIPP HEMATOLOGY ORDERABLES Performing Organization Address City/State/ZIP [place] [address] (ABNORMAL) Basic Metabolic Panel (non-fasting) (05/15/2022 12:00 PM EDT) P athologist Signature Glucose Lvl 203 (H) 65 - 199 [facility] mg/dL [facility] LABORATORY Comment: Diabetes: >=200 mg/dL plus [...] Organization Address City/State/ZIP [place] [address] documented in this encounter [...] mg = 1.8 mg/kg/dose ? 67.7 kg [place] weight), Intravenous, at 11.3 mL/hr, EVERY 3 [...] mg = 2.4 mg/kg/dose ? 67.7 kg [place] weight), Intravenous, at 15 mL/hr, ONCE, 1 [...] mg = 0.24 mg/kg/dose ? 67.7 kg [place] weight), Oral, 2 TIMES DAILY, 2 doses, [...] mg = 0.48 mg/kg/dose ? 67.7 kg [place] weight), Oral, 2 TIMES DAILY, 2 doses, [...] mg = 0.12 mg/kg/dose ? 67.7 kg [place] weight), Oral, 2 TIMES DAILY, 2 doses, First dose on [facility] 05/18/22 at 0900, Last dose on [facility] 05/18/22 at 2100, Hold for RASS [...] chloride 0.9 % (flush) (BD PosiFlush Normal Ublado ine 0.9) flush 5 mL 0900 (Not [...] - Reason: Transfer to a Procedural area)1955 ([facility] Unhold - Provider: Admin Adt) 0816 (Given - Provider: Etta contreras RN) 100 mg, Oral, DAILY, First dose on Brandi at 0900, Until Discontinued, Routine valsartan (Diovan) tablet 40 mg 837 (Given - Provider : Caroline Zamora, DION)2008 (Given - Provider: Nuris Lester RN) 0853 (Given - Provider: Barbie Joyce RN)1750 ([facility] Hold - Provider: Admin Adt - Reason: Transfer to a Procedural area)1955 ([facility] Unhold - Provider: Admin Adt)2005 (Given [...] - Reason: Transfer to a Procedural area)1955 ([facility] Unhold - Provider: Admin Adt) 218 [...] 2000 (No t Given - Provider: Tere lBankenship RN - Reason: Contraindicated - Comment: TR [...] - Reason: Transfer to a Procedural area)1955 ([facility] Unhold - Provider: Admin Adt) 650 [...] bisacodyL (Dulcolax) suppository 10 mg 1 751 ([facility] Hold - Provider: Admin Adt - Reason: Transfer to a Procedural area)1955 ([facility] Unhold - Provider: Admin Adt) 10 [...]
Routine documented in this encounter Care Teams Crap Game Box Person Relationship Specialty Start Date End Date Bobby Das MD PCP - General 10/02/[address] [place] [address] [place] [phone] documented as of this encounter
--- OUTSIDE RECORDS SUMMARY | 2022-07-22 10:27 | XMS_ITS | Encounter Summary ---
:1940 [place] [address] Care Team Providers Name Role Phone Bobby Das MD Primary Care Provider Reason for Visit Reason Comments Left Leg Pain Auth/Cert Specialty Diagnoses / Procedures Referred By Contact Refer red To Contact Diagnoses Limb ischemia LLE thrombus Fito Summers MD [facility] [place] [address] Referral ID Status Reason Start Date Expiration Date Visits Requ ested Visits Authorized [id number] 1 1 Encounter Details Date Type Department Care Team Description 05/20/2022 Surgery Furniture Mechanic Abundio Mcguire , CARDIAC CATHETERIZATION [facility] [place] [address] CARDIOLOGY [phone] [place] [employer], [place] [address] (Wo rk) Social History Tobacco [...] onset Afib who presents in transfer from [facility] with acute limb ischemia of the [...] emergently went to the OR for L REGULATORY INTERN transverse arteriotomy and primary repair, thromboembolectomy of L SFA/PFA/REGULATORY INTERN, reperfusion venous drainage for 250 cc, and [...] Discharge Condition: Good Discharge to: Home with [address] [address] Future Appointments and Orders Future Appointments and Orders Future Appointments Provider Department Dept Phone 05/23/2022 10:30 AM Loretta Cohen MD Dermatology at [facility] Arrive at: Assessment Coordinator [address] [place] [address] 06/07/2022 1:30 PM Gail Rae APRN Vascular Surgery at [facility] Arrive at: Assessment Coordinator [address] [phone] 06/13/2022 7:30 AM Edson Lagos [place] Vascular Lab at [facility] Arrive at: Assessment Coordinator Area 06/13/2022 8:00 AM Fito Summers MD Vascular Surgery at [facility] Arrive at: Assessment Coordinator Area 3V [phone] 06/13/2022 10:00 AM Alan Reid MD Cardiology at [facility] Arrive at: Assessment Coordinator Area [phone] Future Orders Complete By Expires Z[employer]atch 48 Hrs-15 Days [BBF5444 CPT(R)] 05/21/2022 11/20/2022 Process Instructions: Scheduling Instructions: Comments: Questions: Does the patient have a pacemaker? If yes provide HI/LO settings: Apply for 7 or 14 days?: 7 Where will study be performed?: [facility] Clinics JOSSELYN, legs, multiple levels [VAS8 Custom] 06/21/2022 (Approximate) 12/21/2022 Process Instructions: There is no in-house vascular r&d lab technician available on weeknights (5pm-8am), weekends, or holidays. IF THIS IS A REQUEST FOR AN EMERGENT STUDY DURING THOSE HOURS, please have the senior provider responsible for the patient page the Vascular Surgery Fellow/Senior Resident crew leader/control room operator to discuss options. Scheduling Instructions: Questions: Indication for study/signs & symptoms: ALI s/p L fem cutdown with thromboembolectomy Question to be answered: Perfusion to feet? Please check toe pressure Preferred location?: [facility] Clinics Referral to Cardiology [REF12 Custom] As [...] Koko Zamora for admission to Home Health. [address] [place] [phone] (home) Date of : 1940 Inpatient DOCUMENTATION FOR VNA SERVICES (INCLUDING THOSE PATIENTS WITH MEDICARE COVERAGE REQUIRING HOME VNA SERVICES AND/OR HOSPICE SERVICES) PATIENT'S LOCATION: Koko Zamora [address] [place] [phone] (home) Cell: No relevant phone numbers on file. Marketing Education Teacher's Name: Koko In discussion with the attending physician, it is certified that this patient is under their care and that they, or a Nurse Practitioner,Clinical Nurse specialist or Physician Foreign Student Adviser who is working directly with them, had [...] for managing ADL's. HOME HEALTH CARE AGENCY: [facility]. [address] [place] [address] Start of care: Within 24 to 48 [...] obtained from this patient'sPCP: Bobby Das MD [address] [place] [address] [place] [address] All VNA agencies which cover the [...] For any problems or questions please call [phone] For issues on weeknights after 5pm and weekends please call [phone] and ask for the Vascular Fellow crew leader/control room operator. JOSEE Santiago Vascular Surgery 05/21/2022 documented [...] For any problems or questions please call [phone] For issues on weeknights after 5pm and weekends please call [phone] and ask for the Vascular Fellow crew leader/control room operator. documented in this encounter Medications at [...] 04/12/20 21 (FLONASE) 50 mcg/actuation Nare route [place], Suspension daily as needed. fluorouraciL (EFUDEX) 5 [...] onset Afib who presents in transfer from [facility] with acute limb ischemia of the [...] status, full code. JOSEE Santiago 05/21/2022 Pager: [phone] Brannon Isaacs, PT - 05/21/2022 10:35 AM [...] plan as stated. Time IN / OUT: 5794-0192 Total Minutes, Physical Therapy: 25 Billing Code: 2 BOSTON Isaacs DPT Pager: [phone] Physical Therapy Inpatient Rehabilitation Department [place] Jean [...] 04/17/2021 in Pain and Spine Center at [facility] Weight 79.8 kg (175 lb 14.8 oz) [...] and plan of care per Dr. Mcnamara (rolling mill operator helper). Please refer to her note above for [...] to Hosp-Admission (Current) from 05/15/2022 in 4 [facility] Office Visit from 04/17/2021 in Pain and Spine Center at [facility] Weight 79.8 kg (175 lb 14.8 oz) [...] findings andplan of care per Dr. Mcnamara (rolling mill operator helper). Please refer to her note above for [...] a mitral repair in 2000 (not at [facility]) with no CAD at that time. Currently, [...] AF and the first documented HR at [facility] was 125 bpm (presented to an an [...] onset Afib who presents in transfer from [facility] with acute limb ischemia of the [...] management following Dottie Hill APRN 05/20/2022 Pager: [phone] Laney Atkins RN - 05/20/2022 1:14 AM EDT Pt Koko transferred to room from [facility]. A&Ox4, oriented to room and call boo. Masimo and telemetry placed. In agreement with assessment as documented this evening by Nuris ASHLEY. No complaints at this time. Pt aware of NPO status and plan for cardiac cath in AM. Urinal provided. Resting comfortably in bed. Nuris Lester RN - 05/20/2022 1:09 AM EDT Pt. Transferred to [facility]. RN accompanied patient to floor and handed off to [facility] RN Dottie Hill APRN - 05/19/2022 10:02 AM EDT Vascular Surgery Progress Note Koko Zamora is a 81 y.o. male with w new onset Afib who presents in transfer from [facility] with acute limb ischemia of the LLE. ?? The patient had sudden pain starting at 630 05/15/22, he presented NDR H where he was placed on heparin. [...] management following Dottie Hill APRN 05/19/2022 Pager: [phone] Emily Sauceda RN - 05/19/2022 6:28 AM EDT OUTCOME EVALUATION NOTE: OUTCOME SUMMARY: Patient AOx4, VSS on RA. Afib on tele. HR controlled w/ PRN metop, given x2. Denies CP, SOB, n/v. See flowsheets for NVC. Dressings to LLE CDI, prevena WV to groin intact. Voiding to urinal. LBM HEEL SLUGGER, patient stating he will maybe try the [...] adequately without difficulty to bedside urinal. LBM HEEL SLUGGER. Up to chair this AM with nursing staff. Worked with PT, tolerated well. Diet changed to regular at 1800.Plan is for cardiac cath on Friday. PLAN MOVING FORWARD: Bleeding precautions Pain management neurovascular checks PT/OT analytical laboratory technician INDIVIDUALIZED FALL PREVENTION INTERVENTIONS: Patient-specific [...] onset Afib who presents in transfer from [facility] with acute limb ischemia of the [...] mL Intravenous BID ??? PHENobarbitaL 0.12 mg/kg/dose ([place]) Oral BID ??? thiamine 100 mg Oral [...] management following Dottie Hill APRN 05/18/2022 Pager: [phone] Brannon Isaacs, PT - 05/18/2022 10:00 AM [...] IR Biopsy Spine 07/20/2019 Bobby Marshall MD [facility] INTERVENTIONL RAD ??? IR VERTEBROPLASTY LUMBAR MULTIPLE LEVELS 07/20/2019 IR Vertebroplasty Lumbar Multiple Levels 07/20/2019 Bobby Marshall MD [facility] INTERVENTIONL RAD ??? IR VERTEBROPLASTY THORACIC SINGLE LEVEL 10/25/2020 IR Vertebroplasty Thoracic Single Level 10/25/2020 Matt Chisholm MD [facility] INTERVENTIONL RAD ??? PRO EMBLC/THRMBC FEMORAL POPLITEAL AORTO-ILIAC ARTERY Left 05/15/2022 EMBOLECTOMY OR THROMBECTOMY, FEMOROPOPLITEAL, AORTOILIAC ARTERY BY LEG INCISION (WRVU 19.48) performed by Fito Summers MD at [facility] MAIN OR Social History: Pt [...] in this evaluation. Time IN / OUT: 8424-0094 Total Minutes, Physical Therapy: 30 Billing Code: Basilio Isaacs, PT Pager: [phone] Physical Therapy Inpatient Rehabilitation Department Emily Sauceda RN - 05/18/2022 4:34 AM EDT OUTCOME EVALUATION NOTE: OUTCOME SUMMARY: Patient AOx4, VSS on 2LNC. Afib on tele. HR above 120, MD aware, PRN IV metop given x1, HR returned to 90's-low 100's. Denies CP, SOB, n/v. See flowsheets for NVC. Dressings to LLE CDI, prevena WV to groin intact. Voiding to urinal. LBM HEEL SLUGGER. Heparin gtt therapeutic. Pain controlled. Patient sleeping [...] deficits provided, if applicable: [X] N/A Nuris eLster RN - 05/17/2022 6:25 PM EDT OUTCOME [...] adequately without difficulty to bedside urinal. LBM HEEL SLUGGER. Patient not OOB this shift. Currently NPO awaitingprocedure in label printer. PLAN MOVING FORWARD: Bleeding precautions Pain management neurovascular checks PT/OT NPO for label printer INDIVIDUALIZED FALL PREVENTION INTERVENTIONS: Patient-specific fall risk [...] the Emergency Department as a transfer from [facility] with left lower extremity limb ischemia. He went to [facility] and was startedon heparin and transferred to [facility] for evaluation by vascular surgery [...] will will be going to the label printer for evaluation. Will defer PT eval at present but will see as ordered post cardiac catheritizaton. Social Hx:Pt lives with his Ursula in [place], [place] in a 2 level home in [...] WBAT LLE LISBET HERMAN PT Pager # [phone] In-Pt Rehab Medicine Dottie Hill APRN - 05/17/2022 7:42 AM EDT Vascular Surgery Progress Note Koko Zamora is a 81 y.o. male with w new onset Afib who presents in transfer from [facility] with acute limb ischemia of the [...] mL Intravenous BID ??? PHENobarbitaL 0.24 mg/kg/dose ([place]) Oral BID Followed by ??? [START ON 05/18/2022] PHENobarbitaL 0.12 mg/kg/dose ([place]) Oral BID ??? thiamine 100 mg Oral [...] management following Dottie Hill APRN 05/17/2022 Pager: [phone] Sary Dos Santos, RN - 05/17/2022 12:16 [...] onset Afib who presents in transfer from [facility] with acute limb ischemia of the [...] mL Intravenous BID ??? PHENobarbitaL 0.48 mg/kg/dose ([place]) Oral BID Followed by ??? [START ON 05/17/2022] PHENobarbitaL 0.24 mg/kg/dose ([place]) Oral BID Followed by ??? [START ON 05/18/2022] PHENobarbitaL 0.12 mg/kg/dose ([place]) Oral BID ??? thiamine 100 mg Oral [...] management following Edward Rodríguez MD 05/16/2022 Pager: [phone] Sary Dos Santos RN - 05/16/2022 12:52 [...] met 2129 Hand off to DION Ramirez dahlgren documented in this encounter H&P Notes Kerry [...] onset Afib who presents in transfer from [facility] with acute limb ischemia of the [...] IR Biopsy Spine 07/20/2019 Bobby Marshall MD [facility] INTERVENTIONL RAD ??? IR VERTEBROPLASTY LUMBAR MULTIPLE LEVELS 07/20/2019 IR Vertebroplasty Lumbar Multiple Levels 07/20/2019 Bobby Marshall MD [facility] INTERVENTIONL RAD ??? IR VERTEBROPLASTY THORACIC SINGLE LEVEL 10/25/2020 IR Vertebroplasty Thoracic Single Level 10/25/2020 Matt Chisholm MD [facility] INTERVENTIONL RAD Social Hx: Social [...] Refill ??? fluticasone propionate (FLONASE) 50 mcg/actuation [place], Suspension as needed. ??? fluorouraciL (EFUDEX) 5 [...] and consented. Tim Chicas MD 05/15/2022 Pager: [phone] documented in this encounter ED Notes Lc Harris PA - 05/15/2022 1:20 PM EDT ED Provider Note HPI: Koko Zamora is a 81 y.o. male with history of atrial fibrillation not on anticoagulation, and GI bleeding who presents to the Emergency Department as a transfer from [facility] with left lower extremity limb ischemia. Patient says that the symptoms started roughly 630 this morning when he developed severe pain in his left lower extremity. He went to [facility] and was started on heparin and transferred to [facility] for evaluation by vascular surgery. [...] lower extremity earlier today and went to [facility] where it was determined that he had [...] orders before pt. Arrival. Pt. Arrived at [facility] by EMS at 1150, vascular team at [...] in an outpatient cardiac rehabilitation program at [facility] was discussed. Patient agrees to a referral to this program. Timing will depend on his recovery from Vascular surgery. He is going home w/VNA PT. I gave him the brochure for the program at [facility] for future reference. Care Management Discharge [...] information for follow-up Home Health & Hospice, [place] [address] [place] [address] Transportation: family or friend will provide Functional [...] Type: *No Product type* / Secondary Insurance: [facility] Prescription Coverage: Yes This plan was formulated with input from patient and team. All are in agreement with plan. IP RS has communicated with [place] - for initial IMM. Shawn López RN (Jonas) RN/CM - Cellphone: [phone] Pager: [phone] Covering Service RN/CM Plan of Care - [...] catheterization, transferred in hospital bed accompanied by Furniture Mechanic RN, remains on telemetry monitoring. Heparin gtt [...] Type: *No Product type* / Secondary Insurance: [facility] Last Physical Therapy Recommendation: home with home health, home with supervision with None Last Occupational Therapy Recommendation: with Plan for discharge is: Home w/ Services Outpatient Agency/Support Group Needs: None Home Health Services: Registered Nurse, Physical Therapy, Occupational Therapy Agency Referrals: I have met with the patient to: ?? discuss discharge planning needs. ?? provide the [facility], Office of Care Management letter from the Insurance Licensing Supervisor pertaining to rehab referrals. ?? provide a letter describing our affiliations within the [facility] and educate about their right to choose where referrals are sent. ?? provide a list of Home Health Agencies / Durable Medical Equipment vendors which serve their preferred geographic area. ?? provided patient with [facility] Star Quality Rating handout. They have requested referrals to: [facility] [employer]. [address] [place] [address] Note routed to a Lace Stripper who will communicate referrals to facilities and provide any required information. Transportation: family or friend will provide Barriers to discharge: None Plan going forward: Patient is going for a cardiac cath today and plan will come from there. Patientwas recently seen by PT and they recommend VNA at time of discharge. Wallace was routed and pendedat this time. Care Management will continue to follow and assist with discharge planning and coordination of care as indicated. Anticipated Date of Discharge: 05/21/2022 Nataly RICHMOND RN Phone: [phone] Pager: [phone] Plan of Care - Laney Atkins RN [...] original note were not included. [facility] [place] [address] [address] INPATIENT CARDIOLOGY CONSULT NOTE Date of Consultation: 05/17/2022 Admit Date: 05/15/2022 Hospital Day 2 days Reason for Consult: New afib Active Problems: Active Hospital Problems Diagnosis Limb ischemia Resolved Hospital Problems No resolved problems to display. HPI: Koko Zamora is a 81 y.o. male with a PMHx significant for MVP (s/p MV repair 2000), tobacco use, HLD, who presented to [facility] from OSH on 05/15 with acute limb ischemia of LLE and was found to be in atrial fibrillation. Patient had sudden onset LLE pain on 05/15 and presented to [facility], where he was started on heparin and transferred to [facility]. Upon arrival to [facility], patient was in atrial fib with RVR [...] IR Biopsy Spine 07/20/2019 Bobby Marshall MD [facility] INTERVENTIONL RAD IR VERTEBROPLASTY LUMBAR MULTIPLE LEVELS 07/20/2019 IR Vertebroplasty Lumbar Multiple Levels 07/20/2019 Bobby Marshall MD [facility] INTERVENTIONL RAD IR VERTEBROPLASTY THORACIC SINGLE LEVEL 10/25/2020 IR Vertebroplasty Thoracic Single Level 10/25/2020 Matt Chisholm MD [facility] INTERVENTIONL RAD PRO EMBLC/THRMBC FEMORAL POPLITEAL AORTO-ILIAC ARTERY Left 05/15/2022 EMBOLECTOMY OR THROMBECTOMY, FEMOROPOPLITEAL, AORTOILIAC ARTERY BY LEG INCISION (WRVU 19.48) performed by Fito Summers MD at [facility] MAIN OR Allergies Allergen Reactions Aspirin Other (See Comments) GI bleed Out-Patient Medications: Medications Prior to Admission Medication Sig Dispense Refill Last Dose fluorouraciL (EFUDEX) 5 % Cream daily. CRESTOR 40 mg Tablet Take 40 mg by mouth daily. fluticasone propionate (FLONASE) 50 mcg/actuation [place], Suspension as needed. ascorbic acid, vitamin C, [...] 5 mL Intravenous BID PHENobarbitaL 0.24 mg/kg/dose ([place]) Oral BID Followed by [START ON 05/18/2022] PHENobarbitaL 0.12 mg/kg/dose ([place]) Oral BID thiamine 100 mg Oral Daily folic acid 1,000 mcg Oral Daily multivitamin with minerals 1 tablet Oral Daily heparin (porcine) infusion 1,200 Units/hr (05/17/22 8814) Family History: No family history on file. [...] ED to Hosp-Admission (Current) from 05/15/[address] [place] [address] Office Visit from 04/17/2021 in Pain and Spine Center at [facility] Weight 79.8 kg (175 lb 14.8 oz) [...] continue to follow Anne-Marie Larson MD Pager [phone] Clinic: [phone] 05/17/22 6:22 PM Initial Assessments - Ifrah [...] 180 days) Any patient receiving care at [facility] must abide by [place] law. The hierarchy [...] raised toilet seat Home Address confirmed as: [address] [place] [phone] Social & Family Supports: All names listed below confirmed with patient as Incorrect. Will notify toni to correct. Wifes address is same as and phone is [phone]. Extended Emergency Contact Information Primary Emergency Contact: Ursula Zamora Address: [address] [place] [address] [address] [place] [address] [facility] Relation: Spouse Current Care [...] Type: *No Product type* / Secondary Insurance: [facility] Prescription Coverage: Yes Preferred Pharmacy: [id number] - [place], [place] - [address] [facility] [address] [place] [address] [id number] - [place], [place] - [address] [facility] [address] [facility] [address] [place] Status: Patient is a : unable to assess Primary Care Provider: Bobby Das MD [phone] Patient/Caregiver Goals of Treatment: to walk again Potential Needs for Transition of Care: none noted per 05/16 IDR Transportation: family will provide Transportation Anticipated: family or friend will provide Concerns to be Addressed: no discharge needs identified Assessment: Patient is admitted to vascular surg service for left lower extremity limb ischemia Plan: Per PT OT recommendations . Has used [employer] in the past. A member of the Care Management team will continue to monitor progress, follow for continuity of care and assist with transition of care planning. Ifrah Bell RN BSN Transportation Economics TeacherJewel Hole Cornerer of Care Management Pager [phone] Brief Op Note - Erin Garza MD - 05/15/2022 5:04 PM EDT Brief Operative Note Patient Name: Koko Zamora : [id number] MR#: [id number] Case Date: 05/15/2022 Surgeon: Surgeon(s) and Role: [...] IV antibiotics: Ceftriaxone Op Note - Erin Gazra MD - 05/15/2022 2:08 PM EDT [facility] Operative Note Patient Name: Koko Zamora : [id number] MR#: [id number] Case Date: 05/15/2022 Surgeon: Surgeon(s) and Role: [...] MD [facility] GASTROENTEROLOGY DEPT [place], [place] [address] (Wo rk) 09/05/2022 Appointment Cardiology Trinity Reid MD [facility] CARDIOLOGY [place], [place] [address] (Wo rk) 09/05/2022 Office Visit Cardiology Trinity Reid MD [facility] CARDIOLOGY [place], [place] [address] (Wo rk) Scheduled Referrals Name [...] Component Value Ref Test Analysis Performed At [facility] Range Method Time Signature VB Text Department: Vascular Surgery Lab VASCUBASE Report Patient: [id number] (KOKO ZAMORA) CPT: 51892 Referring Physician: FITO SUMMERS ?? Phone: Indications: s/p L REGULATORY INTERN endart. Diabetes mellitus: no Findings: Right [...] P athologist Signature Heparin UFH 0.42 IU/mL [facility] LABORATORY Comment: Heparin (anti-Xa) levels [...] Organization Address City/State/[place] [address] Differential, Automated (05/21/2022 6:15 AM EDT) P athologist Signature Neutrophils % 58.8 % [facility] LABORATORY Neutr Abs (ANC) 3.97 1.70 - [facility] 6.10 [facility] x10(3)[facility] LABORATORY Lymphocytes % 25.2 % [facility] LABORATORY Lymphocytes Abs 1.7 0.9 - 3.2 [facility] x10(3)[facility] LABORATORY Monocytes % 12.9 % [facility] LABORATORY Monocyte Abs 0.9 0.3 - 0.9 [facility] x10(3)[facility] LABORATORY Eosinophils % 2.1 % [facility] LABORATORY Eosinophils Abs 0.1 0.0 - 0.4 [facility] x10(3)[facility] LABORATORY Basophils % 0.4 % [facility] LABORATORY Basophils Abs 0.0 0.0 - 0.1 [facility] x10(3)[facility] LABORATORY Immature Gran % 0.60 % [...] Rain Gran Abs 0.04 0.00 - 0.04 x10(3)/[facility] LABORATORY Specimen Anatomical Collection Method Collection Time Receive d Time (Source) Location / / Volume Laterality Blood 05/21/2022 6:15 AM 2 6:38 EDT AM EDT Resulting Agency Comment Spec In Lab Edward Rodríguez MD HEMATOLOGY ORDERABLES Performing Organization Address City/State/ZIP [place] [address] (ABNORMAL) Hemogram (05/21/2022 6:15 AM EDT) [facility] Method Time Signature WBC 6.8 4.0 - 9.5 [facility] x10(3)/[facility] LABORATORY RBC 3.59 (L) 4.58 - [facility] 5.54 [facility] x10(6)/[facility] LABORATORY Hemoglobin 11.8 (L) 13.7 - [facility] 16.5 g/dL [facility] LABORATORY Hematocrit 34.5 (L) 40.5 - [facility] 48.5 % [facility] LABORATORY MCV 96.1 (H) 82.9 - [facility] 93.1 [facility] LABORATORY MCH 32.9 (H) 27.5 - [facility] 32.1 pg [facility] LABORATORY MCHC 34.2 32.0 - [facility] 35.7 g/dL [facility] LABOR[facility]ORY Platelets 198 145 - 357 [facility] x10(3)/[facility] LABORATORY RDWSD 44.9 36.0 - [facility] LABORATORY RDWCV 12.6 11.4 - [facility] 13.8 % [facility] LABORATORY MPV 10.0 7.6 - 12.9 [facility] LABORATORY nRBC % Auto 0.3 % [facility] LABORATORY nRBC Abs Auto 0.020 (H) 0.000 - [facility] 0.000 [facility] x10(3)/[facility] LABORATORY Specimen Anatomical Collection Method Collection Time Receive d Time (Source) Location / / Volume Laterality Blood 05/21/2022 6:15 AM 2 6:38 EDT AM EDT Resulting Agency Comment Spec In Lab Edward Rodríguez MD HEMATOLOGY ORDERABLES Performing Organization Address City/State/ZIP Code Phon e Number [place] [id number] HOSP[address] LAB[address]ATORY Drive EKG 12 Lead (05/20/2022 7:04 PM EDT) Component Value Ref Range Test Analysis Performed Pathologis t Method Time At Signature Ventricular rate 101 BPM MUSE SYSTEM QRS Duration 116 ms MUSE SYSTEM Q-T Interval 378 ms MUSE SYSTEM QTC Calculated 490 ms MUSE SYSTEM (Bezet) Calculated R Webb -53 degrees MUSE SYSTEM Calculated T Webb 101 degrees MUSE SYSTEM INTERPRETATION Atrial fibrillation [...] Laterality Volume Narrative 05/20/2022 7:09 PM EDT ?[facility] ? Cardiac Cathete rization/Intervention Report ? Patient Name: Koko Zamora. ? Procedure Date: 05/20/2022 ? A #: [id number] ? Primary Physician: Abundio Servin ? Case #: [id number] ? File Name: [id number] ? Catheterization Order Number: [id number] ? [facility] ? Final Report [place], [place] ? Patient Name: ? Koko J. Klarissa uson ? ID#: ?[id number] ? : ?1940 ? Procedure Date: ? [...] was Urgent. The indication for ?the label printer visit is cardiomyo nita. Chest pain symptom [...] ?3.5 guiding catheter and a 3.5 Fr [facility] [place] [address] ??20 Mhz. ??Imaging ?was successful. ??Image [...] premounted 2. 75 x 30 mm Rudy Byron (AMPARO) was deployed ? with a maximum [...] note might be different from the original. [facility] Cardiac Catheterization/Intervention Re port Patient Name: Koko Zamora Procedure Date: 05/20/2022 A #: [id number] Primary Physician: Abundio Servin Case #: File Name: [id number] Catheterization Order Number: [id number] [facility] Final Report [place], [place] Patient Name: Koko Zamora ID#: [id number] : 1940 Procedure Date: May 20, 2022 [...] designated a s ASA Class IV. The [facility] clinical frailty scale is 3: [...] e was Urgent. The indication for the label printer visit is cardiomyopathy. C hest pain symptom [...] 3.5 guiding catheter and a 3.5 Fr [facility] [place] [address] 20 Mhz. Imaging was successful. Image [...] A premounted 2.75 x 30 mm Rudy Byron (AMPARO) was deployed with a maximum inflation [...] require modification of this regimen. Consult D [facility] Interventional Cardiology for questions. The 1 year [...] Signature POC Glucose 123 65 - 199 [facility] LABORATORY Comment: Supplemental ranges: <140 mg/dL before meals <180 mg/dL all other times of the day Specimen Anatomical Collection Method Collection Time Receive d Time (Source) Location / / Volume Laterality Blood 05/20/2022 5:42 PM 2 5:42 EDT PM EDT Fito Summers MD POINT OF CARE TEST ORDERABLE S Performing Organization Address City/State/[place] [address] (ABNORMAL) BMP w/fasting Glucose (05/20/2022 10:50 AM EDT) P athologist Signature Glucose 152 (H) 65 - 99 [facility] F[facility] mg/dL [facility] LABORATORY Comment: ?Fasting* Glucose Interpretive C [...] of Diabetes Mellitus, Position Statement from the [place] [employer]. ??Diabete s Care, Volume 33, Supplement 1, Nov 2009 BUN 11 10 - 20 mg/dL [facility] LABORATORY Creatinine 0.63 (L) [...] mmol/L [facility] LABORATORY Calcium 8.7 8.5 [...] Address City/State/ZIP [place] [address] Heparin (unfractionated) Level (05/20/2022 5:02 AM EDT) P athologist Signature Heparin UFH 0.57 IU/mL [facility] LABORATORY Comment: Heparin (anti-Xa) levels [...] Address City/State/ZIP [place] [address] (ABNORMAL) Differential, Automated (05/20/2022 5:02 AM EDT) Patholo gist Method Time Signature Neutrophils % 58.1 % [facility] LABORATORY Neutr Abs (ANC) 4.52 1.70 - [facility] 6.10 [facility] x10(3)/[facility] LABORATORY Lymphocytes % 24.1 % [facility] LABORATORY Lymphocytes Abs 1.9 0.9 - 3.2 [facility] x10(3)/[facility] LABORATORY Monocytes % 13.8 % [facility] LABORATORY Monocyte Abs 1.1 (H) 0.3 - 0.9 [facility] x10(3)/[facility] LABORATORY Eosinophils % 2.6 % [facility] LABORATORY Eosinophils Abs 0.2 0.0 - 0.4 [facility] x10(3)[facility] LABORATORY Basophils % 0.8 % [facility] LABORATORY Basophils Abs 0.1 0.0 - 0.1 [facility] x10(3)/[facility] LABORATORY Immature Gran % 0.60 [...] Address City/State/ZIP [place] [address] (ABNORMAL) Hemogram (05/20/2022 5:02 AM EDT) Analysis Performed At Patho logist Time Signature WBC 7.8 4.0 - 9.5 [facility] x10(3)/[facility] LABORATORY RBC 3.53 (L) 4.58 - [facility] 5.54 [facility] x10(6)/[facility] LABORATORY Hemoglobin 11.4 (L) 13.7 - [facility] 16.5 g/dL [facility] LABORATORY Hematocrit 34.3 (L) 40.5 - [facility] 48.5 % [facility] LABORATORY MCV 97.2 (H) 82.9 - [facility] 93.1 [facility] LABORATORY MCH 32.3 (H) 27.5 - [facility] 32.1 pg [facility] LABORATORY MCHC 33.2 32.0 - [facility] 35.7 g/dL [facility] LABORATORY Platelets 181 145 - 357 [facility] x10(3)/[facility] LABORATORY RDWSD 46.4 (H) 36.0 - [facility] 45.0 [facility] LABORATORY RDWCV 13.0 11.4 - [facility] 13.8 % [facility] LABORATORY MPV 10.4 7.6 - 12.9 [facility] LABORATORY nRBC % Auto 0.0 % [facility] LABORATORY nRBC Abs Auto 0.000 0.000 - [facility] 0.000 [facility] x10(3)/[facility] LABORATORY Specimen Anatomical Collection Method Collection Time Receive d Time (Source) Location / / Volume Laterality Blood 05/20/2022 5:02 AM 2 5:19 EDT AM EDT Resulting Agency Comment Spec In Lab Edward Rodríguez MD HEMATOLOGY ORDERABLES Performing Organization Address City/State/[place] [address] Heparin (unfractionated) Level (05/19/2022 3:26 AM EDT) P athologist Signature Heparin UFH 0.59 IU/mL [facility] LABORATORY Comment: Heparin (anti-Xa) levels [...] Address City/State/ZIP [place] [address] (ABNORMAL) Differential, Automated (05/19/2022 3:26 AM EDT) [facility] Method Time Signature Neutrophils % 62.1 % [facility] LABORATORY Neutr Abs (ANC) 4.59 1.70 - [facility] 6.10 [facility] x10(3)/[facility] LABORATORY Lymphocytes % 22.1 % [facility] LABORATORY Lymphocytes Abs 1.6 0.9 - 3.2 [facility] x10(3)/[facility] LABORATORY Monocytes % 13.5 % [facility] LABORATORY Monocyte Abs 1.0 (H) 0.3 - 0.9 [facility] x10(3)/[facility] LABORATORY Eosinophils % 1.3 % [facility] LABORATORY Eosinophils Abs 0.1 0.0 - 0.4 [facility] x10(3)/[facility] LABORATORY Basophils % 0.5 % [facility] LABORATORY Basophils Abs 0.0 0.0 - 0.1 [facility] x10(3)/[facility] LABORATORY Immature Gran % 0.50 [...] Rain Gran Abs 0.04 0.00 - 0.04 x10(3)/[facility] LABORATORY Specimen Anatomical Collection Method Collection Time Receive d Time (Source) Location / / Volume Laterality Blood 05/19/2022 3:26 AM 2 3:59 EDT AM EDT Resulting Agency Comment Spec In Lab Edward Rodríguez MD HEMATOLOGY ORDERABLES Performing Organization Address City/State/ZIP [place] [address] (ABNORMAL) Hemogram (05/19/2022 3:26 AM EDT) Analysis Performed At [facility] logist Time Signature WBC 7.4 4.0 - 9.5 [facility] x10(3)/[facility] LABORATORY RBC 3.74 (L) 4.58 - [facility] 5.54 [facility] x10(6)/[facility] LABORATORY Hemoglobin 12.1 (L) 13.7 - [facility] 16.5 g/dL [facility] LABORATORY Hematocrit 36.4 (L) 40.5 - [facility] 48.5 % [facility] LABORATORY MCV 97.3 (H) 82.9 - [facility]O 93.1 [facility] LABORATORY MCH 32.4 (H) 27.5 - [facility] [place] 32.1 pg [facility] LABORATORY MCHC 33.2 32.0 - [facility] 35.7 g/dL [facility] LABORATORY Platelets 168 145 - 357 [facility] x10(3)/[facility] LABORATORY RDWSD 46.9 (H) 36.0 - [facility] 45.0 [facility] LABORATORY RDWCV 13.0 11.4 - [facility] 13.8 % [facility] LABORATORY MPV 10.5 7.6 - 12.9 [facility] fL [facility] LABORATORY nRBC % Auto 0.0 % [facility] LABORATORY nRBC Abs Auto 0.000 0.000 - [facility] 0.000 [facility] x10(3)/[facility] LABORATORY Specimen Anatomical Collection Method Collection Time Receive d Time (Source) Location / / Volume Laterality Blood 05/19/2022 3:26 AM 3:59 EDT AM EDT Resulting Agency Comment Spec In Lab Edward Rodríguez MD HEMATOLOGY ORDERABLES Performing Organization Address City/State/ZIP [place] [address] TSH (05/18/2022 8:00 PM EDT) P athologist Signature TSH 2.27 0.27 - 4.20 [facility] mcIU/mL [facility] LABORATORY Comment: Reference Interval (mcIU/mL): Females: ??First Trimester: 0.23-3.88 ??Second Trimester: 0.22-3.90 ??Third Trimester: 0.44-4.66 Specimen Anatomical Collection Method Collection Time Receive d Time (Source) Location / / Volume Laterality Blood 05/18/2022 8:00 PM 2 8:06 EDT PM EDT Resulting Agency Comment Spec In Lab Fito Summers MD CHEMISTRY ORDERABLES Performing Organization Address City/State/ZIP [place] [address] (ABNORMAL) Differential, Automated (05/18/2022 3:34 AM EDT) [facility] Method Time Signature Neutrophils % 67.2 % [facility] LABORATORY Neutr Abs (ANC) 5.89 1.70 - [facility] 6.10 [facility] x10(3)/[facility] LABORATORY Lymphocytes % 17.1 % [facility] LABORATORY Lymphocytes Abs 1.5 0.9 - 3.2 [facility] x10(3)/[facility] LABORATORY Monocytes % 13.6 % [facility] LABORATORY Monocyte Abs 1.2 (H) 0.3 - 0.9 [facility] x10(3)/[facility] LABORATORY Eosinophils % 1.0 % [facility] LABORATORY Eosinophils Abs 0.1 0.0 - 0.4 [facility] x10(3)/[facility] LABORATORY Basophils % 0.6 % [facility] LABORATORY Basophils Abs 0.0 0.0 - 0.1 [facility] x10(3)/[facility] LABORATORY Immature Gran % 0.50 [...] Rain Gran Abs 0.04 0.00 - 0.04 x10(3)/[facility] LABORATORY Specimen Anatomical Collection Method Collection Time Receive d Time (Source) Location / / Volume Laterality Blood 05/18/2022 3:34 AM 2 3:48 EDT AM EDT Resulting Agency Comment Spec In Lab Edward Rodríguez MD HEMATOLOGY ORDERABLES Performing Organization Address City/State/ZIP [place] [address] (ABNORMAL) Hemogram (05/18/2022 3:34 AM EDT) Analysis Performed At Patho logist Time Signature WBC 8.8 4.0 - 9.5 [facility] x10(3)/[facility] LABORATORY RBC 3.45 (L) 4.58 - [facility] 5.54 [facility] x10(6)/[facility] LABORATORY Hemoglobin 11.2 (L) 13.7 - [facility] 16.5 g/dL [facility] LABORATORY Hematocrit 33.0 (L) 40.5 - [facility] 48.5 % [facility] LABORATORY MCV 95.7 (H) 82.9 - [facility] 93.1 [facility] LABORATORY MCH 32.5 (H) 27.5 - [facility] 32.1 pg [facility] LABORATORY MCHC 33.9 32.0 - [facility] 35.7 g/dL [facility] LABORATORY Platelets 130 (L) 145 - 357 [facility] x10(3)/[facility] LABORATORY RDWSD 46.2 (H) 36.0 - [facility] 45.0 [facility] LABORATORY RDWCV 13.2 11.4 - [facility] 13.8 % [facility] LABORATORY MPV 10.8 7.6 - 12.9 [facility] LABORATORY nRBC % Auto 0.0 % [facility] LABORATORY nRBC Abs Auto 0.000 0.000 - [facility] 0.000 [facility] x10(3)/[facility] LABORATORY Specimen Anatomical Collection Method Collection Time Receive d Time (Source) Location / / Volume Laterality Blood 05/18/2022 3:34 AM 3:48 EDT AM EDT Resulting Agency Comment Spec In Lab Edward Rodríguez MD HEMATOLOGY ORDERABLES Performing Organization Address City/State/ZIP [place] [address] Heparin (unfractionated) Level (05/18/2022 3:34 AM EDT) P athologist Signature Heparin UFH 0.59 IU/mL [facility] LABORATORY Comment: Heparin (anti-Xa) levels [...] Summers MD HEMATOLOGY ORDERABLES Performing Organization Address City/[facility]/[place] [address] Magnesium (05/17/2022 3:33 AM EDT) athologist Signature Magnesium 0.76 0.69 - 1.07 [facility] mmol/L [facility] LABORATORY Specimen Anatomical Collection Method Collection Time Receive d Time (Source) Location / / Volume Laterality Blood Venous Draw / 05/17/2022 3:33 AM 05/17/20 4:05 Unknown EDT AM EDT Resulting Agency Comment Spec In Lab Dottie Hill APRN CHEMISTRY ORDERABLES Performing Organization Address City/State/[place] [address] (ABNORMAL) Basic Metabolic Panel (non-fasting) (05/17/2022 3:33 AM EDT) athologist Signature Glucose Lvl 158 65 - 199 [facility] mg/dL [facility] LABORATORY Comment: Diabetes: >=200 mg/dL plus symp toms BUN 12 10 - 20 mg/dL [facility] LABORATORY Creatinine 0.74 (L) [...] mmol/L [facility] LABORATORY Calcium 8.4 (L) [...] Address City/State/ZIP [place] [address] (ABNORMAL) Differential, Automated (05/17/2022 3:33 AM EDT) [facility] gist Method Time Signature Neutrophils % 65.5 % [facility] LABORATORY Neutr Abs (ANC) 6.84 (H) 1.70 - [facility] 6.10 [facility] x10(3)/[facility] LABORATORY Lymphocytes % 19.7 % [facility] LABORATORY Lymphocytes Abs 2.1 0.9 - 3.2 [facility] x10(3)/[facility] LABORATORY Monocytes % 13.1 % [facility] LABORATORY Monocyte Abs 1.4 (H) 0.3 - 0.9 [facility] x10(3)/[facility] LABORATORY Eosinophils % 0.6 % [facility] LABORATORY Eosinophils Abs 0.1 0.0 - 0.4 [facility] x10(3)/[facility] LABORATORY Basophils % 0.6 % [facility] LABORATORY Basophils Abs 0.1 0.0 - 0.1 [facility] x10(3)/[facility] LABORATORY Immature Gran % 0.50 % [facility] [...] Address City/State/ZIP [place] [address] (ABNORMAL) Hemogram (05/17/2022 3:33 AM EDT) Analysis Performed At Patho logist Time Signature WBC 10.4 (H) 4.0 - 9.5 [facility] x10(3)/[facility] LABORATORY RBC 3.72 (L) 4.58 - [facility] 5.54 [facility] x10(6)/[facility] LABORATORY Hemoglobin 12.0 (L) 13.7 - [facility] 16.5 g/dL [facility] LABORATORY Hematocrit 36.4 (L) 40.5 - [facility] 48.5 % [facility] LABORATORY MCV 97.8 (H) 82.9 - [facility] 93.1 [facility] LABORATORY MCH 32.3 (H) 27.5 - [facility] 32.1 pg [facility] LABORATORY MCHC 33.0 32.0 - [facility] 35.7 g/dL [facility] LABORATORY Platelets 149 145 - 357 [facility] x10(3)/[facility] LABORATORY RDWSD 48.7 (H) 36.0 - [facility] 45.0 [facility] RDWCV 13.5 11.4 - [facility] 13.8 % [facility] LABORATORY MPV 10.6 7.6 - 12.9 [facility] LABORATORY nRBC % Auto 0.0 % [facility] LABORATORY nRBC Abs Auto 0.000 0.000 - [facility] 0.000 [facility] x10(3)/[facility] LABORATORY Specimen Anatomical Collection Method Collection Time Receive d Time (Source) Location / / Volume Laterality Blood 05/17/2022 3:33 AM 3:53 EDT AM EDT Resulting Agency Comment Spec In Lab Edward Rodríguez MD HEMATOLOGY ORDERABLES Performing Organization Address City/State/ZIP [place] [address] (ABNORMAL) Urinalysis Microscopic Exam [...] City/State/ZIP Code Phon e Number [place] [id number] (ABNORMAL) Urinalysis with reflex Culture (05/16/2022 11:15 PM EDT) Patholo gist Method Time Signature Glucose UA Negative Negative [facility] mg/dL [facility] LAB[facility] Protein UA Negative Negative [facility] mg/dL [facility] LAB[facility] Bilirubin UA Negative Negative [facility] mg/dL [facility] LABORATORY Comment: Clinical correlation required for [...] [facility] Leukocytes UA Negative Negative [facility] LABORATORY Appearance UA Clear Clear [facility] LABORATORY Spec [place] UA 1.021 1.005 - 1.030 [facility] LABORATORY Color UA Yellow Yellow [facility] LABORATORY Culture Reflexed No [facility] LABORATORY Specimen Anatomical Collection Method Collection Time Receive d Time (Source) Location / / Volume Laterality Clean Catch 05/16/2022 11:15 05/16/2022 Urine PM EDT 11:30 PM EDT Resulting Agency Comment Spec In Lab Fito Summers MD URINE ORDERABLES Performing Organization Address City/State/ZIP [place] [address] Heparin (unfractionated) Level (05/16/2022 10:59 PM EDT) P athologist Signature Heparin UFH 0.65 IU/mL [facility] LABORATORY Comment: Specimen drawn more [...] City/State/ZIP Code Phon e Number [place] [phone] HOSPITAL LABOR[address]ORY Drive XR Chest One View [...] have questions please contact the health rn homecare that requested your imaging first. ? Narrative [...] have questions please contact the health rn homecare that requested your imaging first. Fito Summers MD IMG DX ORDERABLES EKG 12 Lead (05/16/2022 8:57 PM EDT) Component Value Ref Range Test Analysis Performed Pathologis t Method Time At Signature Ventricular rate 117 BPM MUSE SYSTEM QRS Duration 112 ms MUSE SYSTEM Q-T Interval 346 ms MUSE SYSTEM QTC Calculated 482 ms MUSE SYSTEM (Bezet) Calculated R Webb -48 degrees MUSE SYSTEM Calculated T Webb 111 degrees MUSE SYSTEM INTERPRETATION Atrial fibrillation with rapid ventricular response MUSE SYSTEM Left anterior fascicular block Minimal voltage criteria for LVH, may be normal variant ( Saxton product ) Nonspecific ST and T wave [...] P athologist Signature Heparin UFH 0.53 IU/mL [facility] LABORATORY Comment: Heparin (anti-Xa) levels [...] Address City/State/ZIP [place] [address] ECHOCARDIOGRAM COMPLETE W CONTRAST (05/16/2022 12:49 PM EDT) P athologist Signature EF 28 HEARTLAB SYSTEM Anatomical Region Laterality Modality Cardiac Other Specimen (Source) Anatomical Collection Method Collection Time Re ceived Time Location / / Volume Laterality 05/16/2022 11:22 AM EDT Narrative 05/16/2022 1:54 PM EDT ?[facility] ? [facility] Center ?[address] ? [place] [address] ?Voice: ?Fax: ? Echocardiogram Report Name: ZAMORAKOKO ?Study Date: 05/16/2022 11:22 AM ? Patient Location: 3WST 0303 B : 1940 ? Height: 67.5 in ? Account: [id number] Age: 81 yrs ? Weight: 176 lb Gender: Male ?BSA: 1.9 m2 Ordering Physician: FITO SUMMERS Referring Physician: MALI FLORIAN Performed By: Jolene Bernard RDCS Exam Location: [facility]. Interpretation Summary Left ventricle is mildly [...] and LV systolic dysfunction are new. Procedure Complete-[id number]. Image enhancement Optiso n was used for [...] note [place] [address] Voice: Fax: Echocardiogram Report Name: KOKO ZAMORA Study Date: 05/2022 11:22 AM Patient Location: [address] [place] [address] : 1940 Height: 67.5 in Account: [id number] Age: 81 yrs Weight: 176 lb Gender: Male BSA: 1.9 m2 Ordering Physician: FITO SUMMERS Referring Physician: MALI FLORIAN Performed By: Jolene Bernard RDCS Exam Location: [facility]. Interpretation Summary Left ventricle is mildly [...] and LV systolic dysfunction are new. Procedure Complete-[id number]. Image enhancement Optiso n was used for [...] Automated (05/16/2022 3:01 AM EDT) [facility] Method Time Signature Neutrophils % 78.8 % [facility] LABORATORY Neutr Abs (ANC) 9.11 (H) 1.70 - [facility] 6.10 [facility] x10(3)/[facility] L LABORATORY Lymphocytes % 9.4 % [facility] LABORATORY Lymphocytes Abs 1.1 0.9 - 3.2 [facility] x10(3)/[facility] LABORATORY Monocytes % 10.9 % [facility] LABORATORY Monocyte Abs 1.3 (H) 0.3 - 0.9 [facility] x10(3)/[facility] LABORATORY Eosinophils % 0.0 % [facility] LABORATORY Eosinophils Abs 0.0 0.0 - 0.4 [facility] x10(3)/[facility] LABORATORY Basophils % 0.3 % [facility] LABORATORY Basophils Abs 0.0 0.0 - 0.1 [facility] x10(3)/[facility] LABORATORY Immature Gran % 0.60 % [facility] [...] Address City/State/ZIP [place] [address] [facility] (ABNORMAL) Hemogram (05/16/2022 3:01 AM EDT) Analysis Performed At Patho logist Time Signature WBC 11.6 (H) 4.0 - 9.5 [facility] x10(3)/[facility] LABORATORY RBC 3.62 (L) 4.58 - [facility] 5.54 [facility] x10(6)/[facility] LABORATORY Hemoglobin 12.0 (L) 13.7 - [facility] 16.5 g/dL [facility] LABORATORY Hematocrit 35.3 (L) 40.5 - [facility] 48.5 % [facility] LAB[facility]ATORY MCV 97.5 (H) 82.9 - [facility] 93.1 [facility] LABORATORY MCH 33.1 (H) 27.5 - [facility] 32.1 pg [facility] LABORATORY MCHC 34.0 32.0 - [facility] 35.[facility] g/dL [facility] LABORATORY Platelets 151 145 - 357 [facility] x10(3)/[facility] LABORATORY RDWSD 47.6 (H) 36.0 - [facility] 45.0 [facility] LABORATORY RDWCV 13.3 11.4 - [facility] XIAO 13.8 % [facility] LABORATORY MPV 10.5 7.6 - 12.9 [facility] LABORATORY nRBC % Auto 0.0 % [facility] LABORATORY nRBC Abs Auto 0.000 0.000 - [facility] 0.000 [facility] x10(3)/[facility] LABORATORY Specimen Anatomical Collection Method Collection Time Receive d Time (Source) Location / / Volume Laterality Blood 05/16/2022 3:01 AM 2 3:36 EDT AM EDT Resulting Agency Comment Spec In Lab Erin Garza MD HEMATOLOGY ORDERABLES Performing Organization Address City/State/ZIP Code Phon e Number [address] Phosphorus (05/16/2022 3:01 AM EDT) athologist Signature Phosphorus 3.7 2.5 - 4.5 [facility] mg/dL [facility] LABORATORY Specimen Anatomical Collection Method Collection Time Receive d Time (Source) Location / / Volume Laterality Blood 05/16/2022 3:01 AM 2 3:36 EDT AM EDT Resulting Agency Comment Spec In Lab Fito Summers MD CHEMISTRY ORDERABLES Performing Organization Address City/[facility]/ZIP Code Phon e Number [address] Magnesium (05/16/2022 3:01 AM EDT) athologist Signature Magnesium 0.77 0.69 - 1.07 [facility] mmol/L [facility] LABORATORY Specimen Anatomical Collection Method Collection Time Receive d Time (Source) Location / / Volume Laterality Blood 05/16/2022 3:01 AM 2 3:36 EDT AM EDT Resulting Agency Comment Spec In Lab Fito Summers MD CHEMISTRY ORDERABLES Performing Organization Address City/[facility]/[place] [address] (ABNORMAL) Basic Metabolic Panel (non-fasting) (05/16/2022 3:01 AM EDT) P athologist Signature Glucose Lvl 222 (H) 65 - 199 [facility] mg/dL [facility] LABORATORY Comment: Diabetes: >=200 mg/dL plus symp toms BUN 12 10 - 20 mg/dL [facility] LABORATORY Creatinine 0.66 (L) [...] Anion Gap 8 5 - 15 mmol/L [facility] LABORATORY Calcium 8.2 (L) [...] Address City/State/ZIP [place] [address] (ABNORMAL) BLOOD GAS 2 ARTERIAL (05/15/2022 3:33 PM EDT) Analysis Performed At Patho logist Time Signature pH Art 7.33 (L) 7.35 - [facility] 7.45 [facility] LABORATORY pCO2 Art 41 35 - 45 [facility] mmHg [facility] LABORATORY pO2 Art 131 (H) 85 - 104 [facility] LABORATORY HCO3 Art 21.1 20.0 - [facility] 26.0 [facility] mmol/L [facility] LABORATORY BE Art -4.8 (L) -3.0 - 3.0 [facility] mmol/L [facility] LABORATORY Hgb Blood Gas 13.4 (L) 13.7 - [facility] 16.5 g/dL [facility] LABORATORY O2HB Art 96.9 94.0 - [facility] 97.0 % [facility] LABORATORY COHB Art 1.4 % [facility] [...] Address City/State/ZIP [place] [address] (ABNORMAL) BLOOD GAS 2 ARTERIAL (05/15/2022 2:06 PM EDT) Analysis Performed At Patho logist Time Signature pH Art 7.39 7.35 - [facility] 7.45 [facility] LABORATORY pCO2 Art 35 35 - 45 [facility] mmHg [facility] LABORATORY pO2 Art 135 (H) 85 - 104 [facility] LABORATORY HCO3 Art 20.8 20.0 - [facility] 26.0 [facility] mmol/L [facility] LABORATORY BE Art -4.2 (L) -3.0 - 3.0 [facility] mmol/L [facility] LABORATORY Hgb Blood Gas 14.5 13.7 - [facility] 16.5 g/dL [facility] LABORATORY O2HB Art 97.2 (H) 94.0 - [facility] 97.0 % [facility] LABORATORY COHB Art 1.2 % [place] [...] Torre MD CHEMISTRY ORDERABLES Performing Organization Address City/[facility]/[place] [address] (ABNORMAL) Prothrombin Time (05/15/2022 12:30 PM EDT) P athologist Signature PT 12.9 (H) 9.4 - 12.5 [facility] LABORATORY INR 1.1 [facility] LABORATORY [...] Morales DO HEMATOLOGY ORDERABLES Performing Organization Address City/[facility]/[place] [address] (ABNORMAL) APTT (05/15/2022 12:30 [...] Daquan Andrew HEMATOLOGY ORDERABLES Performing Organization Address City/[facility]/ZIP Code Phon e Number [address] Gold Tube HOLD (05/15/2022 12:20 PM EDT) P athologist Signature Gold Hold Sample in [facility]. [facility] LABORATORY Specimen Anatomical Collection Method Collection Time Receive d Time (Source) Location / / Volume Laterality Blood No Charge / 05/15/2022 12:20 05/15/2022 Unknown PM EDT 12:20 PM EDT Lc TRIPP CHEMISTRY ORDERABLES Performing Organization Address City/[facility]/ZIP Code Phon e Number [address] Type and Screen Validity (05/15/2022 12:00 PM EDT) [facility] Method Time Signature T&S only valid [facility] at [facility] LABORATORY Comment: This Type and Screen result is only valid at the [facility] Specimen Anatomical Collection Method Collection Time Receive d Time (Source) Location / / Volume Laterality Blood 05/15/2022 12:00 05/15/2022 PM EDT 12:17 PM EDT Resulting Agency Comment Spec In Lab Lc Dominick Kimberly TRIPP BLOOD BANK ORDERABLES Performing Organization Address City/[facility]/ZIP Code Phon e Number [address] ABORH Recheck Status (05/15/2022 12:00 PM EDT) [facility] gist Method Time Signature ABORH Recheck Order Placed [facility] LABORATORY ABORH Type Complete [facility] LABORATORY Specimen Anatomical Collection Method Collection Time Receive d Time (Source) Location / / Volume Laterality Blood 05/15/2022 12:00 05/15/2022 PM EDT 12:17 PM EDT Resulting Agency Comment Spec In Lab Lc Harris PA BLOOD BANK ORDERABLES Performing Organization Address City/[facility]/[place] [address] CK (05/15/2022 12:00 PM EDT) P athologist Signature CK, Total 87 0 - 200 [facility] unit/L [facility] LABORATORY Specimen Anatomical Collection Method Collection Time Receive d Time (Source) Location / / Volume Laterality Blood Venous Draw / 05/15/2022 12:00 05/15/2022 Unknown PM EDT 12:19 PM EDT Resulting Agency Comment Spec In Lab Fito Summers MD CHEMISTRY ORDERABLES Performing Organization Address City/State/[place] [address] Antibody screen (05/15/2022 12:00 PM EDT) [facility] Method Time Signature Ab Screen Negative [facility] LABORATORY Expires at 05/18/2022 [facility] 2359 on: [facility] LABORATORY Specimen Anatomical Collection Method Collection Time Receive d Time (Source) Location / / Volume Laterality Blood 05/15/2022 12:00 05/15/2022 PM EDT 12:17 PM EDT Resulting Agency Comment Spec In Lab Lc TRIPP BLOOD BANK ORDERABLES Performing Organization Address City/[facility]/[place] [address] ABO/Rh Typing (05/15/2022 12:00 PM EDT) P athologist Signature ABORh Type O Pos [facility] LABORATORY Specimen Anatomical Collection Method Collection Time Receive d Time (Source) Location / / Volume Laterality Blood 05/15/2022 12:00 05/15/2022 PM EDT 12:17 PM EDT Resulting Agency Comment Spec In Lab Lc TRIPP BLOOD BANK ORDERABLES Performing Organization Address City/[facility]/[place] [address] (ABNORMAL) Differential, Automated (05/15/2022 12:00 PM EDT) [facility] Method Time Signature Neutrophils % 79.4 % [facility] LABORATORY Neutr Abs (ANC) 7.49 (H) 1.70 - [facility] 6.10 [facility] x10(3)/[facility] LABORATORY Lymphocytes % 11.3 % [facility] LABORATORY Lymphocytes Abs 1.1 0.9 - 3.2 [facility] x10(3)/[facility] LABORATORY Monocytes % 7.8 % [facility] LABORATORY Monocyte Abs 0.7 0.3 - 0.9 [facility] x10(3)/[facility] LABORATORY Eosinophils % 0.6 % [facility] LABORATORY Eosinophils Abs 0.1 0.0 - 0.4 [facility] x10(3)/[facility] LABORATORY Basophils % 0.6 % [facility] LABORATORY Basophils Abs 0.1 0.0 - 0.1 [facility] x10(3)/[facility] LABORATORY Immature Gran % 0.30 % [place] [...] Rain Gran Abs 0.03 0.00 - 0.04 x10(3)/[facility] LABORATORY Specimen Anatomical Collection Method Collection Time Receive d Time (Source) Location / / Volume Laterality Blood 05/15/2022 12:00 05/15/2022 PM EDT 12:19 PM EDT Resulting Agency Comment Spec In Lab Lc TRIPP HEMATOLOGY ORDERABLES Performing Organization Address City/State/ZIP [place] [address] (ABNORMAL) Hemogram (05/15/2022 12:00 PM EDT) Analysis Performed At Patho logist Time Signature WBC 9.4 4.0 - 9.5 [facility] x10(3)/[facility] LABORATORY RBC 4.48 (L) 4.58 - [facility] 5.54 [facility] x10(6)/[facility] LABORATORY Hemoglobin 14.5 13.7 - [facility] 16.5 g/dL [facility] LABORATORY Hematocrit 42.4 40.5 - [facility] 48.5 % [facility] LABORATORY MCV 94.6 (H) 82.9 - [facility] 93.1 [facility] LABORATORY MCH 32.4 (H) 27.5 - [facility] 32.1 pg [facility] LABORATORY MCHC 34.2 32.0 - [facility] 35.7 g/dL [facility] LABORATORY Platelets 209 145 - 357 [facility] x10(3)/[facility] LABORATORY RDWSD 45.9 (H) 36.0 - [facility] 45.0 [facility] LABORATORY RDWCV 13.1 11.4 - [facility] 13.8 % [facility] LABORATORY MPV 10.5 7.6 - 12.9 [facility] LABORATORY nRBC % Auto 0.0 % [facility] LABORATORY nRBC Abs Auto 0.000 0.000 - [facility] 0.000 [facility] x10(3)/[facility] LABORATORY Specimen Anatomical Collection Method Collection Time Receive d Time (Source) Location / / Volume Laterality Blood 05/15/2022 12:00 05/15/2022 PM EDT 12:19 PM EDT Resulting Agency Comment Spec In Lab Lc TRIPP HEMATOLOGY ORDERABLES Performing Organization Address City/State/ZIP [place] [address] (ABNORMAL) Basic Metabolic Panel (non-fasting) (05/15/2022 12:00 PM EDT) P athologist Signature Glucose Lvl 203 (H) 65 - 199 [facility] mg/dL [facility] LABORATORY Comment: Diabetes: >=200 mg/dL plus symp toms BUN 16 10 - 20 mg/dL [facility] LABORATORY Creatinine 0.84 0.80 [...] Anion Gap 11 5 - 15 mmol/L [facility] LABORATORY Calcium 8.5 8.5 [...] Address City/State/ZIP [place] [address] documented in this encounter [...] Caroline Zamora RN) 0852 (Given - Provider: Babrie Joyce RN)1750 (JAN Hold - Provider: Admin Adt - Reason: Transfer to a Procedural area)1955 ([facility] Unhold - Provider: Admin Adt) 08 [...] - Reason: Transfer to a Procedural area)1955 ([facility] Unhold - Provider: Admin Adt)2131 (Given [...] - Reason: Transfer to a Procedural area)1955 ([facility] Unhold - Provider: Admin Adt) [...] - Reason: Transfer to a Procedural area)1955 ([facility] Unhold - Provider: Admin Adt) [...] - Reason: Transfer to a Procedural area)1955 ([facility] Unhold - Provider: Admin Adt) 218 [...] bisacodyL (Dulcolax) suppository 10 mg 1 751 ([facility] Hold - Provider: Admin Adt - Reason: Transfer to a Procedural area)1955 ([facility] Unhold - Provider: Admin Adt) 10 [...] (porcine) (1,000 units/mL) injection 0-8,000 Units 175 ([facility] Hold - Provider: Admin Adt - Reason: Transfer to a Procedural area)1955 ([facility] Unhold - Provider: Admin Adt) 0-8,000 [...] - Reason: Transfer to a Procedural area)1955 ([facility] Unhold - Provider: Admin Adt) 3 [...] - Pr ovider: Emily Sauceda RN) 1750 ([facility] Hold - Provider: Admin Adt - R lexie: Transfer to a Procedural area)1955 ([facility] Unhold - Provider: Admin Adt) 5 [...] (Roxicodone) tablet 10-15 mg(Linked Group 2) 1750 ([facility] Hold - Provider: Admin Adt - Reason: Transfer to a Procedural area)1955 ([facility] Unhold - Provider: Admin Adt) 10-15 mg, Oral, EVERY 4 HOURS PRN, Start ing on Fri05/17/22 at 0655, Until Fri05/21/22 at 1743, Pain, severe pain (7-10), Initial dose 10mg. If pain control not adequate in 60 minutes, give additional 5mg, Routine oxyCODONE (Roxicodone) tablet 5-10 mg(Linked Group 2) 1750 (JAN Hold - Provider: Admin Adt - Reason: Transfer to a Procedural area)1955 ([facility] Unhold - Provider: Admin Adt) 5-10 [...]
Routine documented in this encounter Care Teams Composition Teacher Relationship Specialty Start Date End Date Bobby Das MD PCP - General 10/02/[address] [place] [address] [place] [address] documented as of this encounter
--- OUTSIDE RECORDS SUMMARY | 2022-07-22 10:27 | XMS_ITS | Encounter Summary ---
:1940 [place] [address] Care Team Providers Name Role Phone Bobby Das MD Primary Care Provider Reason for Visit Auth/Cert Specialty Diagnoses / Procedures Referred By Contact Refer red To Contact Diagnoses Limb ischemia LLE thrombus Fito Summers MD [facility] [place] [address] Referral ID Status Reason Start Date Expiration Date Visits Requ ested Visits Authorized [id number] 1 1 Encounter Details Date Type Department Care Team Description 05/15/2022 Anesthesia Event Main Operating Room Cari Briggs MD [facility] [place] [address] [facility] Duong Aguillon CRNA [facility] [place] [address] [place] [address] Anesthesia Record Procedure Summary Procedure Name [...] Amb ros, Andrea L, DION fossa), left; vhcw-[id number] catheter system; 18 gauge; OSH; site care per policy/procedure, site symptomatic, removed per policy/procedure, catheter/device intact; 05/16/22; 1117 PIV 05/15/22; 1204; median 05/15/22 1204 by 05/16/22 0738 by cubital vein (antecubital Marcia Dimas RN Gon zalez, Adriana, fossa), right; RN [id number]-[id number] catheter system; 18 gauge; OSH; 05/16/22; 0738 [...] Procedure Summary Date: 05/15/22 Room / Location: [facility] OR [address] [place] [address] MAIN OR Anesthesia Start: 1320 Anesthesia Stop: 1633 Procedure: EMBOLECTOMY OR THROMBECTOMY, FEMOROPOPLITEAL, AORTOILIAC ARTERY [facility] (Left ) Diagnosis: (Acute Limb Ischemia) Surgeons: Fito Summers MD Responsible Provider: Cari Ventura MD Anesthesia Type: general ASA Status: 3 - Emergent All Anesthesia Providers: Anesthesiologist: Cari Ventura MD SUPERINTENDENT CEMETERY: Torres Aguilar CRNA Vitals Value Taken Time BP 108/69 05/15/22 1715 Temp 36.3 ??C (97.3 ??F) 05/15/22 1633 Pulse 110 05/15/22 1719 Resp 16 05/15/22 1719 SpO2 89 % 05/15/22 1719 Pain Level Vitals shown include unvalidated device data. 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 Plan discussed with SUPERINTENDENT CEMETERY. Anesthesia Screening documented in this encounter Plan of Treatment Upcoming Encounters Date Type Specialty Care Team Description 08/08/2022 Office Visit Gastroenterology Negra Collins MD [facility] GASTROENTEROLOGY DEPT [place], [place] [address] (Wo rk) 09/05/2022 Appointment Cardiology Trinity Reid MD [facility] CARDIOLOGY [place], [place] [address] (Wo rk) 09/05/2022 Office Visit Cardiology Trinity Reid MD [facility] CARDIOLOGY [place], [place] [address] (Wo rk) documented as of [...] Routine documented in this encounter Care Teams Form Layer Relationship Specialty Start Date End Date Bobby Das MD PCP - General 10/02/[address] [place] [address] [place] [phone] documented as of this encounter
--- OUTSIDE RECORDS SUMMARY | 2022-07-22 10:28 | XMS_ITS | Encounter Summary ---
:1940 Author Organization [place] [address] Care Team Providers Name Role Phone Bobby Das MD Primary Care Provider Reason for Referral Diagnostic Test (Routine) - Specialty Diagnoses / Procedures Referred By Contact Refer red To Contact Radiology Diagnoses Chest pain, unspecified type Chronic abdominal pain Chano Rebolledo MD [facility] Rad Ct Scan Procedures CT Chest w Contrast CT Chest wo Contrast (Generic) [facility] [address] [place] [address] Referral ID Status Reason Start Date Expiration Visits Visits Date Requested Authorized [id number] Specialty 12/13/2016 12/13/2017 1 1 Service Requested Diagnostic Test (Routine) - Closed Specialty Diagnoses / Procedures Referred By Contact Refer red To Contact Radiology Diagnoses Chest pain, unspecified type Chronic abdominal pain Chano Rebolledo MD [facility] Rad Ct Scan Procedures CT Abdomen & Pelvis w Contrast [place] [address] [place] [address] Referral ID Status Reason Start Date Expiration Date Visits V isits Requested Authorized [id number] Closed Specialty 12/13/2016 12/13/2017 1 1 Service Requested Reason for Visit Diagnostic Test (Routine) - Closed Specialty Diagnoses / Procedures Referred By Contact Refer red To Contact Radiology Diagnoses Chest pain, unspecified type Chronic abdominal pain Chano Rebolledo MD [facility] Rad Ct Scan Procedures CT Abdomen & Pelvis w Contrast [facility] [place] [address] [place] [address] Referral ID Status Reason Start Date Expiration Date Visits V isits Requested Authorized [id number] Closed Specialty 12/13/2016 12/13/2017 1 1 Service Requested Encounter Details Date Type Department Care Team Description 12/17/[address] Scan at [facility] Fanciullo, Chest pain, unspecified type ; [facility] Leonel Sullivan MD Chronic abdominal pain Drive [facility] [address] PAIN CLINIC [phone] [place] [address] Social History Tobacco Use Types [...] Collins MD [facility] GASTROENTEROLOGY DEPT [place], [place] [address] (Wo rk) 09/05/2022 Appointment Cardiology Trinity Reid MD [facility] DR [address] [place], [place] [address] (Wo rk) 09/05/2022 Office Visit Cardiology Trinity Reid MD [facility] [address] [place], [place] [address] (Wo rk) documented as of [...] 1237 documented in this encounter Care Teams Rd Scientist Relationship Specialty Start Date End Date Bobby Das MD PCP - General 10/02/[address] [place] [address] [place] [address] documented as of this encounter
--- OUTSIDE RECORDS SUMMARY | 2022-07-22 10:28 | XMS_ITS | Encounter Summary ---
:1940 Author Organization [facility] Address [facility] [place] [address] Care Team Providers Name Role Phone Bobby Das MD Primary Care Provider Reason for Visit - Closed Specialty Diagnoses / Procedures Referred By Contact Refer red To Contact Procedures Bobby Das MD Film Library- Storage Only [facility] [place] [address] Referral ID Status Reason Start Date Expiration Date Visits Requ ested Visits Authorized [id number] Closed 02/23/2021 02/23/2022 1 1 Encounter Details Date Type Department Care Team Description 03/16/2020 Ancillary Procedure Radiology Library at Bobby Almaguer MD [address] [phone] (Rebekah rojas) Social History Tobacco Use Types [...] [facility] GASTROENTEROLOGY DEPT [place], [place] [address] (Wo rk) 09/05/2022 Appointment Cardiology Trinity Reid MD [facility] CARDIOLOGY [place], [place] [address] (Wo rk) 09/05/2022 Office Visit Cardiology Trinity Reid MD [facility] ER CARDIOLOGY [place], [place] [address] (Wo rk) documented as of [...] Organization Address City/State/ZIP Code Phon e Number [place], [place] documented in this encounter Visit Diagnoses Not on filedocumented in this encounter Care Teams Photographer Apprentice Relationship Specialty Start Date End Date Bobby Das MD PCP - General 10/02/[address] [place] [address] [place] [phone] documented as of this encounter
--- OUTSIDE RECORDS SUMMARY | 2022-07-22 10:28 | XMS_ITS | Encounter Summary ---
:1940 Author Organization [facility] [place] [address] Care Team Providers Name Role Phone Bobby Das MD Primary Care Provider Encounter Details Date Type Department Care Team Description 06/26/2018 Ancillary Procedure Radiology Library at Bobby Almaguer MD [facility] [address] [place] [phone] (Wo rk) Social History Tobacco Use Types Packs/Day Years Used Date Current Some Day Smoker 1 50 Smokeless Tobacco: Never Used Sex Assigned at Date Recorded Not on file documented as of this encounter Plan of Treatment Upcoming Encounters Date Type Specialty Care Team Description 08/08/2022 Office Visit Gastroenterology Negra Collins MD [facility] DR GASTROENTEROLOGY DEPT [place], [place] [address] (Wo rk) 09/05/2022 Appointment Cardiology Trinity Reid MD [facility] CARDIOLOGY [place], [place] [address] (Wo rk) 09/05/2022 Office Visit Cardiology Trinity Reid MD [facility] CARDIOLOGY [place], [place] [address] (Wo rk) documented as of [...] Organization Address City/State/ZIP Code Phon e Number [place], [place] documented in this encounter Visit Diagnoses Not on filedocumented in this encounter Care Teams Relay Motorman Relationship Specialty Start Date End Date Bobby Das MD PCP - General 10/02/[address] [place] [address] [place] [address] documented as of this encounter
--- OUTSIDE RECORDS SUMMARY | 2022-07-22 10:28 | XMS_ITS | Encounter Summary ---
:1940 Author Organization [facility] [place] [address] Care Team Providers Name Role Phone Bobby Das MD Primary Care Provider Reason for Visit Reason Comments Shortness of Breath Encounter Details Date Type Department Care Team Description 09/17/2011 Office Visit [facility] Torrey Giang SOB (shortness of [address] Bradley Mendoza MD breath) (Primary Dx) [facility] [phone] CARDIOLOGY DEPT. [place] [address] Social History Tobacco Use Types Packs/Day Years [...] MD [facility] GASTROENTEROLOGY DEPT [place], [place] [address] (Wo rk) 09/05/2022 Appointment Cardiology Trinity Reid MD [facility] CARDIOLOGY [place], [place] [address] (Wo rk) 09/05/2022 Office Visit Cardiology Trinity Reid MD [facility] CARDIOLOGY [place], [place] [address] (Wo rk) documented as of [...] breath documented in this encounter Care Teams Help Desk Intern Relationship Specialty Start Date End Date Bobby Das MD PCP - General 10/02/[address] [place] [address] [place] [address] documented as of this encounter
--- OUTSIDE RECORDS SUMMARY | 2022-07-22 10:28 | XMS_ITS | Encounter Summary ---
:1940 Author Organization [facility] [place] [address] Care Team Providers Name Role Phone Bobby Das MD Primary Care Provider Reason for Visit Reason Comments Basal Cell Carcinoma Consultation (Routine) - Closed Specialty Diagnoses / Procedures Referred By Contact Refer red To Contact Dermatology Diagnoses REQUESTING MOHS PROCEDURE RIGHT EYEBROW FOR LESION REMOVED BUT ADDITIONAL TISSUE REMAINS Bobby Das MD Vidal, Nahid Y, MD [address] [place] [address] [place] [address] [place] [address] Fax: Referral ID Status Reason Start Date Expiration Date Visits V isits Requested Authorized [id number] Closed Consult, 06/24/2018 06/24/2019 1 1 Test & Treat Connection Center Encounter Details Date Type Department Care Team Description 09/23/2018 Procedure visit Dermatology at Alvaro Romano, Basal cell carcinoma Nicol ACRCAMO (BCC) of eyebrow [address] [facility] [address] [place] [address] [phone] Social History Tobacco Use Types Packs/Day Years [...] Llanos MD. Your wound(s) was repaired by [id number] stitches called a primary repair. You do [...] until your sutures are removed. 5. Some building maintenance engineer may need to be delayed or delegated [...] as often as is recommended by your life care planner, for new skin cancers. This is once [...] it. If after hours, please call the steam drier operator or [phone] and ask for the life care planner on-call. If you have any non-urgent questions or concerns, please feel free to call my office or contact me through our patient portal, Butlr, at [email or web address] How to contact us during business hours Dermatology at [facility] Road: Mohs scheduling or Mohs follow-up appointments: [phone] documented in this encounter Progress Notes Alvaro [...] Who lives with patient (i.e. spouse, children, [place] [facility]f)? Spouse Relevant travel history or future plans: [...] follow up with his or her referring life care planner or other skin provider. Summary of Procedure(s): [...] Date: 09/23/2018 Staff Surgeon: Alvaro Llanos MD Nursing/Top Frame Maker(s): Assistants: Cassy Jacobson LPN, Jolene Pretty RN, Yolanda Fraser LPN, Savanah Licea CMA Box Inspector (s): rCistina Cisneros Amanda Isenor Pre-operative diagnosis: basal cell [...] The site was confirmed with the patient/authorized accounting representative/referring physician and/or a photograph form time [...] Right eyebrow Indication: repair of wound for islam of function/anatomy Final Defect size: 1.5 x [...] [facility] GASTROENTEROLOGY [place] [address] (Wo rk) 09/05/2022 Appointment Cardiology Trinity Reid MD [facility] CARDIOLOGY [place], [place] [address] (Wo rk) 09/05/2022 Office Visit Cardiology Trinity Reid MD [facility] CARDIOLOGY [place], [place] [address] (Wo rk) documented as of this encounter Visit Diagnoses Diagnosis Basal cell carcinoma (BCC) of eyebrow documented in this encounter Care Teams Meat Blender Relationship Specialty Start Date End Date Bobby Das MD PCP - General 10/02/[address] [place] [address] [place] [address] documented as of this encounter
--- OUTSIDE RECORDS SUMMARY | 2022-07-22 10:28 | XMS_ITS | Encounter Summary ---
:1940 Author Organization [facility] [place] [address] Care Team Providers Name Role Phone Bobby Das MD Primary Care Provider Encounter Details Date Type Department Care Team Description 08/06/2020 Ancillary Procedure Radiology at [facility] Amy Grimaldo [address] [place] [address] 10 [address] [phone] NEUROSURGERY-N Jovanny [place], [place] [address] Social History Tobacco Use Types [...] MD [facility] GASTROENTEROLOGY DEPT [place], [place] [address] (Wo rk) 09/05/2022 Appointment Cardiology Trinity Reid MD [facility] CARDIOLOGY [place], [place] [address] (Wo rk) 09/05/2022 Office Visit Cardiology Trinity Reid MD [facility] CARDIOLOGY [place], [place] [address] (Wo rk) documented as [...] Organization Address City/State/ZIP Code Phon e Number [place], [place] documented in this encounter Visit Diagnoses Not on filedocumented in this encounter Care Teams Grain Mill Worker Relationship Specialty Start Date End Date Bobby Das MD PCP - General 10/02/[address] [place] [address] [place] [phone] documented as of this encounter
--- OUTSIDE RECORDS SUMMARY | 2022-07-22 10:28 | XMS_ITS | Encounter Summary ---
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 Chano Rebolledo MD [facility] Thoracic Surg [address] [place] [address] [place] [address] [place] [address] Phone: Fax: Referral ID Status Reason Start Date Expiration Date Visits V isits Requested Authorized [id number] Denied Consult, 12/18/2016 12/18/2017 1 0 Test & Treat Encounter Details Date Type Department Care Team Description 12/18/2016 Telephone Pain Management at Chano Freitas MD [facility] [place] [address] PAIN CLINIC [phone] [place], [place] [address] (Wo rk) Social History Tobacco [...] MD [facility] GASTROENTEROLOGY DEPT [place], [place] [address] (Wo rk) 09/05/2022 Appointment Cardiology Trinity Reid MD [facility] CARDIOLOGY [place], [place] [address] (Wo rk) 09/05/2022 Office Visit Cardiology Trinity Reid MD [facility] CARDIOLOGY [place], [place] [address] (Wo rk) Scheduled Referrals Name [...] documented in this encounter Care Teams Manager Book Relationship Specialty Start Date End Date Bobby Das MD PCP - General 10/02/[address] [place] [address] [place] [address] documented as of this encounter
--- OUTSIDE RECORDS SUMMARY | 2022-07-22 10:28 | XMS_ITS | Encounter Summary ---
:1940 Author Organization [facility] [place] [address] Care Team Providers Name Role Phone Bobby Das MD Primary Care Provider Reason for Referral Diagnostic Test (Routine) - Specialty Diagnoses / Procedures Referred By Contact Refer ramila To Contact Radiology Diagnoses Chest pain, unspecified type Chronic abdominal pain Chano Rebolledo MD [facility] Rad Ct Scan Procedures CT Chest w Contrast CT Chest wo Contrast (Generic) [facility] [place] [address] [place] [address] Referral ID Status Reason Start Date Expiration Visits Visits Date Requested Authorized [id number] Specialty 12/13/2016 12/13/2017 1 1 Service Requested Consultation (Routine) - Closed Specialty Diagnoses / Procedures Referred By Contact Refer ramila To Contact Neurology Diagnoses Radiculopathy of cervical region Chano Rebolledo MD [facility] [address] [facility] [place] [address] [place] [address] Referral ID Status Reason Start Date Expiration Date Visits V isits Requested Authorized [id number] Closed Test Only 12/13/2016 12/13/2017 1 1 Diagnostic Test (Routine) - Closed Specialty Diagnoses / Procedures Referred By Contact Refer red To Contact Radiology Diagnoses Chest pain, unspecified type Chronic abdominal pain Chano Rebolledo MD [facility] Rad Ct Scan Procedures CT Abdomen & Pelvis w Contrast [facility] [place] [address] [place] [address] Referral ID Status Reason Start Date Expiration Date Visits V isits Requested Authorized [id number] Closed Specialty 12/13/2016 12/13/2017 1 1 Service Requested Reason for Visit Reason Comments Pain Management Neck Pain Bilateral Arm Pain burning across sternum and r ibs, both sides Consultation (Routine) - Closed Specialty Diagnoses / Procedures Referred By Contact Refer red To Contact Pain Management Diagnoses cervical radiculopathy Bobby Das MD [facility] [address] [place] [address] [address] [place], [place] [address] [address] [place] [address] Fax: Referral ID Status Reason Start Date Expiration Date Visits V isits Requested Authorized [id number] Closed Consult, 11/22/2016 11/22/2017 1 1 Test & Treat Encounter Details Date Type Department Care Team Description 12/13/2016 Office Visit Pain Management at [facility], Chest adrianna n, unspecified type; Jose Sullivan MD Chronic abdominal pain; [facility] Radiculop athy of cervical region [facility] [address] [place], [place] PAIN CLINIC [address] [place] [address] Social History Tobacco Use Types [...] Rebolledo MD - 12/13/2016 1:00 PM EST [facility] Pain [place] [address] Phone: PAIN MANAGEMENT NEW PATIENT / CONSULTATION NOTE DATE OF VISIT 12/13/2016 Patient Koko Zamora 1940 REFERRING PROVIDER Bobby Das MD [address] [place] [address] [place] [address] PRIMARY CARE PROVIDER Bobby Das MD CHIEF [...] Aspirin Other (See Comments) 06/28/2011 MEDICATIONS The [place] and [place] Prescription Monitoring Program were checked & no [...] restless FUNCTIONAL /SOCIAL 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 Follow up: -Patient will be called after results are obtained. Koko J Zamora had the opportunity to ask questions and indicated that all questions were answered to his satisfaction. Thank you for this referral, Bobby Das MD [address] [place] [address]. Chano Rebolledo MD Leonel Orozco MD - [...] [facility] DR GASTROENTEROLOGY DEPT [place], [place] [address] (Wo rk) 09/05/2022 Appointment Cardiology Trinity Reid MD [facility] CARDIOLOGY [place], [place] [address] (Wo rk) 09/05/2022 Office Visit Cardiology Trinity Reid MD [facility] CARDIOLOGY [place], [place] [address] (Wo rk) Scheduled Referrals Name [...] site documented in this encounter Care Teams Trust Manager Relationship Specialty Start Date End Date Bobby Dsa MD PCP - General 10/02/[address] [place] [address] [place] [address] documented as of this encounter
--- OUTSIDE RECORDS SUMMARY | 2022-07-22 10:28 | XMS_ITS | Encounter Summary ---
:1940 Author Organization [facility] [place] [address] Care Team Providers Name Role Phone Bobby Das MD Primary Care Provider Reason for Referral Consultation (Routine) - Closed Specialty Diagnoses / Procedures Referred By Contact Refer red To Contact Neurology Diagnoses Low back pain, non-specific Status post vertebroplasty Transient left leg weakness EMG Arpita Whitney APRN [facility] Neurology [address] [place], [place] [address] [place] [phone] Fax: Referral ID Status Reason Start Date Expiration Date Visits V isits Requested Authorized [id number] Closed Consult, 04/17/2021 04/17/2022 1 1 Test & Treat hysical Therapy (Routine) - Specialty Diagnoses / Procedures Referred By Contact Refer red To Contact Diagnoses Low back pain, non-specific Status post vertebroplasty [place] [address] Referral ID Status Reason Start Date Expiration Date Visits V isits Requested Authorized [id number] Evaluate and 04/17/2021 10/14/2021 12 12 Treat Reason for Visit Reason Comments Back Pain new patient visit Consultation (Routine) - Closed Specialty Diagnoses / Procedures Referred By Contact Refer red To Contact Pain and Spine Center Diagnoses Low back pain Pain - Low back pain/ MRI 02/20/21 & XR 01/31/21 @ [facility] Bobby Das MD [facility] Ctr Pain And [address] [place], [place] [address] [address] [place] [address] Phone: Fax: Referral ID Status Reason Start Date Expiration Date Visits Requ ested Visits Authorized [id number] Closed 03/07/2021 03/07/2022 1 1 Encounter Details Date Type Department Care Team Description 04/17/2021 Office Visit [facility] Sp[facility] Arpita Whitney Lo w back pain, non-specific; at [facility] PITCH WORKER Status post vertebroplasty; [facility] Tra nsient left leg weakness Drive [place], [place] [address] Social History Tobacco [...] from the original note were not included. [facility] Date [...] here for today. Had lumbar imaging and [facility] as ordered by PCP with no [...] standing limited due to back pain The [facility] Prescription Monitoring Program was checked. The number of prescriptions reported was 0. Current Medications: Outpatient Medications Marked as Taking for the 04/17/21 encounter (Office Visit) with Arpita Whitney APRN Medication Sig Dispense Refill ??? fluticasone propionate (FLONASE) 50 mcg/actuation Mitchell, Suspension as needed. ??? fluorouraciL (EFUDEX) 5 [...] IR Biopsy Spine 07/20/2019 Bobby Marshall MD [facility] INTERVENTIONL RAD ??? IR VERTEBROPLASTY LUMBAR MULTIPLE LEVELS 07/20/2019 IR Vertebroplasty Lumbar Multiple Levels 07/20/2019 Bobby Marshall MD [facility] RAD ??? IR VERTEBROPLASTY THORACIC SINGLE LEVEL 10/25/2020 IR Vertebroplasty Thoracic Single Level 10/25/2020 Matt Chisholm MD [facility] INTERVENTION[facility] RAD Review of Systems: ROS: [...] y.o. year-old male who presents to the [facility], previously [...] Mr. Koko Zamora's care. Arpita Whitney, MSN, OUTPATIENT RECEPTIONIST- C, PITCH WORKER Nurse Practitioner [facility] [address] [address] / [facility] documented in this encounter Plan of Treatment Upcoming Encounters Date Type Specialty Care Team Description 08/08/2022 Office Visit Gastroenterology Negra Collins MD [facility] GASTROENTEROLOGY DEPT [place], [place] [address] (Wo rk) 09/05/2022 Appointment Cardiology Trinity Reid MD [facility] CARDIOLOGY [place], [place] [address] (Wo rk) 09/05/2022 Office Visit Cardiology Trinity Reid MD [facility] CARDIOLOGY [place], [place] [address] (Wo rk) Scheduled Referrals Name [...] limbs documented in this encounter Care Teams Clipper Operator Relationship Specialty Start Date End Date Bobby Das MD PCP - General 10/02/[address] [place] [address] [place] [phone] documented as of this encounter
--- OUTSIDE RECORDS SUMMARY | 2022-07-22 10:28 | XMS_ITS | Encounter Summary ---
:1940 [place] [address] Care Team Providers Name Role Phone Bobby Das MD Primary Care Provider Encounter Details Date Type Department Care Team Description 08/25/2015 Telephone Dermatology at [facility] Gloria Ferrell MD [address] [facility] [place] [address] [facility] [phone] [place], [place] [address] (Wo rk) Social History Tobacco [...] Negra Collins MD [facility] DR GASTROENTEROLOGY DEPT [place], [place] [address] (Wo rk) 09/05/2022 Appointment Cardiology Trinity Reid MD [facility] CARDIOLOGY [place], [place] [address] (Wo rk) 09/05/2022 Office Visit Cardiology Trinity Reid MD [facility] CARDIOLOGY [place], [place] [address] (Wo rk) documented as of this encounter Visit Diagnoses Not on filedocumented in this encounter Care Teams Priming Mixture Carrier Relationship Specialty Start Date End Date Bobby Das MD PCP - General 10/02/[address] [place] [address] [place] [phone] documented as of this encounter
--- OUTSIDE RECORDS SUMMARY | 2022-07-22 10:28 | XMS_ITS | Encounter Summary ---
:1940 Author Organization [facility] [place] [address] Care Team Providers Name Role Phone Bobby Das MD Primary Care Provider Reason for Visit Reason Comments Skin Check Encounter Details Date Type Department Care Team Description 03/29/2014 Office Visit Dermatology at Cy Knight, Kyle c ell carcinoma (Primary Dx); Nba CARCAMO Verruca vulgaris; [address] [facility] [address] [place] (actinic keratosis) [facility] B DERMATOLOGY [place], [place] [address] [phone] Social History Tobacco Use Types Packs/Day Years [...] sun over the years. He lives in [place], [place]. Physical examination reveals a pleasant, 73-year-old gentleman who has a pearly, 1-cm papule on the right lateral canthus, site A; and a pearly papule about 8 mm in diameter, site C, on the right christianity at the scalp line. At the central [...] BCCAs, right lateral canthus and right lateral christianity, sites A and C, respectively. a. After [...] MD [facility] GASTROENTEROLOGY DEPT [place], [place] [address] (Wo rk) 09/05/2022 Appointment Cardiology Trinity Reid MD [facility] CARDIOLOGY [place], [place] [address] (Wo rk) 09/05/2022 Office Visit Cardiology Trinity Reid MD [facility] CARDIOLOGY [place], [place] [address] (Wo rk) documented as of this encounter Visit Diagnoses Diagnosis Basal cell carcinoma - Primary Basal cell carcinoma of skin, site unspe cified Verruca vulgaris Viral warts, unspecified [place] (actinic keratosis) Actinic keratosis documented in this encounter Care Teams Insulation Board Calender Operator Relationship Specialty Start Date End Date Bobby Das MD PCP - General 10/02/[address] [place] [address] [place] [address] documented as of this encounter
--- OUTSIDE RECORDS SUMMARY | 2022-07-22 10:28 | XMS_ITS | Encounter Summary ---
:1940 Author Organization [facility] [place] [address] Care Team Providers Name Role Phone Bobby Das MD Primary Care Provider Encounter Details Date Type Department Care Team Description 07/20/2019 Laboratory Lab 3L Ifrah Gastrointestina l Appointment [facility] [place] hemorrhag e, unspecified Hospital gastrointestinal [facility] [place] [phone] Social History Tobacco Use Types Packs/Day Years [...] 08/08/2022 Office Visit Gastroenterology Negar Collins MD [facility] DR GASTROENTEROLOGY DEPT [place], [place] [address] (Wo rk) 09/05/2022 Appointment Cardiology Trinity Reid MD [facility] CARDIOLOGY [place], [place] [address] (Wo rk) 09/05/2022 Office Visit Cardiology Trinity Reid MD [facility] CARDIOLOGY [place], [place] [address] (Wo rk) documented as of this encounter Procedures Procedure Name Priority Date/Time Associated Diagnosis Comme [facility] HEMOGRAM Routine 07/20/2019 8:18 Gastrointestinal Results [...] WBC 6.0 4.0 - 9.5 [facility] LABORATORY RBC 4.50 (L) 4.58 - [facility] 5.54 [facility] x10(6)/[facility] LABORATORY Hemoglobin 14.8 13.7 - [facility] 16.5 gm/dL [facility] LABORATORY Hematocrit 43.9 40.5 - [facility] 48.5 % [facility] LABORATORY MCV 97.6 (H) 82.9 - [facility] 93.1 [facility] LABORATORY MCH 32.9 (H) 27.5 - [facility] 32.1 pg [facility] LABORATORY MCHC 33.7 32.0 - [facility] 35.7 gm/dL [facility] LABORATORY Platelets 164 145 - 357 [facility] x10(3)/[facility] LABORATORY RDWSD 49.3 (H) 36.0 - [facility] 45.0 [facility] LABORATORY RDWCV 13.6 11.4 - [facility] 13.8 % [facility] LABORATORY MPV 10.0 7.6 - 12.9 [facility] LABORATORY nRBC % Auto 0.0 % [facility] LABORATORY nRBC Abs Auto 0.000 0.000 - [facility] 0.[address] [facility] x10(3)/[facility] LABORATORY Specimen Anatomical Collection Method Collection Time Receive d Time (Source) Location / / Volume Laterality Blood specimen 07/20/2019 8:18 AM 019 8:21 (specimen) EDT AM EDT Resulting Agency Comment Spec In Lab Bobby Marshall MD HEMATOLOGY ORDERABLES Performing Organization Address City/State/[place] [address] Prothrombin Time (07/20/2019 8:18 AM EDT) P athologist Signature PT 11.3 9.4 - 12.5 [facility] LABORATORY INR 1.0 [facility] LABORATORY Comment: An INR <2.0 indicates [...] City/State/[place] [address] documented in this encounter Visit Diagnoses Diagnosis Gastrointestinal hemorrhage, unspecified gastrointestinal hemorrhage type documented in this encounter Care Teams Service Girl Relationship Specialty Start Date End Date Bobby Das MD PCP - General 10/02/[address] [place] [address] Dr [place], [place] [address] documented as of this encounter
--- OUTSIDE RECORDS SUMMARY | 2022-07-22 10:28 | XMS_ITS | Encounter Summary ---
:1940 Author Organization [facility] Address [facility] [address] [place] [address] Care Team Providers Name Role Phone Bobby Das MD Primary Care Provider Reason for Visit Reason Comments Shortness of Breath Encounter Details Date Type Department Care Team Description 12/24/2011 Office Visit [facility] Torrey Giang SOB (shortness of [address] Bradley Mendoza MD breath) (Primary Dx) [facility] [id number] CARDIOLOGY DEPT. [place], [place] [address] Social History Tobacco Use Types Packs/Day Years [...] MD [facility] GASTROENTEROLOGY DEPT [place], [place] [address] (Wo rk) 09/05/2022 Appointment Cardiology Trinity Reid MD [facility] [place]OLOGY [place], [place] [address] (Wo rk) 09/05/2022 Office Visit Cardiology Trinity Reid MD [facility] CARDIOLOGY [place], [place] [address] (Wo rk) documented as of this encounter Visit Diagnoses Diagnosis SOB (shortness of breath) - Primary Shortness of breath documented in this encounter Care Teams Rewrite Editor Relationship Specialty Start Date End Date Bobby Das MD PCP - General 10/02/[address] [place] [address] [place] [id number] documented as of this encounter
--- OUTSIDE RECORDS SUMMARY | 2022-07-22 10:28 | XMS_ITS | Encounter Summary ---
:1940 Author Organization [facility] [place] [address] Care Team Providers Name Role Phone Bobby Das MD Primary Care Provider Encounter Details Date Type Department Care Team Description 05/15/2022 Ancillary Procedure Radiology Library at [facility], Lavell Butt, [facility] [place] [address] VASCULAR SURGERY [phone] [place] [id number] (Wo rk) Social History Tobacco Use Types [...] [facility] DR GASTROENTEROLOGY DEPT [place], [place] [address] (Wo rk) 09/05/2022 Appointment Cardiology Trinity Reid MD [facility] CARDIOLOGY [place], [place] [address] (Wo rk) 09/05/2022 Office Visit Cardiology rTinity Reid MD [facility] CARDIOLOGY [place], [place] [address] (Wo rk) documented as of [...] Organization Address City/State/ZIP Code Phon e Number [place], [place] documented in this encounter Visit Diagnoses Not on filedocumented in this encounter Care Teams Outboard Motor Tester Relationship Specialty Start Date End Date Bobby Das MD PCP - General 10/02/[address] [place] [address] [place] [phone] documented as of this encounter
--- OUTSIDE RECORDS SUMMARY | 2022-07-22 10:28 | XMS_ITS | Encounter Summary ---
:1940 Author Organization [facility] [place] [address] Care Team Providers Name Role Phone Bobby Das MD Primary Care Provider Encounter Details Date Type Department Care Team Description 05/15/2022 Ancillary Procedure Radiology Library at [facility], Lavell Butt, [facility] [address] VASCULAR SURGERY [phone] [place] [phone] (Wo rk) Social History Tobacco Use Types [...] [facility] DR GASTROENTEROLOGY DEPT [place], [place] [address] (Wo rk) 09/05/2022 Appointment Cardiology Trinity Reid MD [facility] CARDIOLOGY [place], [place] [address] (Wo rk) 09/05/2022 Office Visit Cardiology Trinity Reid MD [facility] [place]OLOGY [place], [place] [address] (Wo rk) documented as of [...] Organization Address City/State/ZIP Code Phon e Number [place], [place] documented in this encounter Visit Diagnoses Not on filedocumented in this encounter Care Teams Quiller Hand Relationship Specialty Start Date End Date Bobby Das MD PCP - General 10/02/[address] [place] [address] [place] [phone] documented as of this encounter
--- OUTSIDE RECORDS SUMMARY | 2022-07-22 10:28 | XMS_ITS | Encounter Summary ---
:1940 Author Organization [facility] [address] Care Team Providers Name Role Phone Bobby Das MD Primary Care Provider Encounter Details Date Type Department Care Team Description 07/26/2015 External Results Medical Records Provider, Scanning [facility] [place] [address] Social History Tobacco Use Types Packs/Day Years Used Date Current Some Day Smoker 1 50 Smokeless Tobacco: Never Used Sex Assigned at Date Recorded Not on file documented as of this encounter Plan of Treatment Upcoming Encounters Date Type Specialty Care Team Description 08/08/2022 Office Visit Gastroenterology Negra Collins MD [facility] GASTROENTEROLOGY DEPT [place], [place] [address] (Wo rk) 09/05/2022 Appointment Cardiology Trinity Reid MD [facility] CARDIOLOGY [place], [place] [address] (Wo rk) 09/05/2022 Office Visit Cardiology Trinity Reid MD [facility] CARDIOLOGY [place], [place] [address] (Wo rk) documented as of [...] on filedocumented in this encounter Care Teams Resin Filterer Relationship Specialty Start Date End Date Bobby Das MD PCP - General 10/02/[address] [place] [address] [place] [phone] documented as of this encounter
--- OUTSIDE RECORDS SUMMARY | 2022-07-22 10:28 | XMS_ITS | Encounter Summary ---
:1940 [place] [address] Care Team Providers Name Role Phone Bobby Das MD Primary Care Provider Reason for Visit Reason Comments Left Leg Pain Auth/Cert Specialty Diagnoses / Procedures Referred By Contact Refer red To Contact Diagnoses Limb ischemia LLE thrombus Fito Summers MD [facility] [place] [address] Referral ID Status Reason Start Date Expiration Date Visits Requ ested Visits Authorized [id number] 1 1 Encounter Details Date Type Department Care Team Description 05/15/2022 Surgery Main Operating Room Savana Summers se, MD [facility] FEMOROPOSANG, [facility] VASCULAR SURG J[place] [address] LEG INCISION ([place] [address] 19.48) [phone] Social History Tobacco Use Types Packs/Day Years [...] emergently went to the OR for L PRODUCTION TRAINER transverse arteriotomy and primary repair, thromboembolectomy of L SFA/PFA/PRODUCTION TRAINER, reperfusion venous drainage for 250 cc, and [...] Discharge Condition: Good Discharge to: Home with [facility] [address] [address] Future Appointments and Orders Future Appointments and Orders Future Appointments Provider Department Dept Phone 05/23/2022 10:30 AM Loretta Cohen MD Dermatology at [facility] Arrive at: Director Clinical Data [address] [place] [address] 06/07/2022 1:30 PM Gail Rae APRN Vascular Surgery at [facility] Arrive at: Director Clinical Data Area [phone] 06/13/2022 7:30 AM Edson Lagos [place] Vascular Lab at [facility] Arrive at: Director Clinical Data Area [phone] 06/13/2022 8:00 AM Fito Summers MD Vascular Surgery at [facility] Arrive at: Director Clinical Data Area 3V [phone] 06/13/2022 10:00 AM Alan Reid MD Cardiology at [facility] Arrive at: Director Clinical Data Area 4A [phone] Future Orders Complete By Expires Ziopatch 48 Hrs-15 Days [ULD5656 CPT(R)] 05/21/2022 11/20/2022 Process Instructions: Scheduling Instructions: Comments: Questions: Does the patient have a pacemaker? If yes provide HI/LO settings: Apply for 7 or 14 days?: 7 Where will study be performed?: [facility] Clinics JOSSELYN, legs, multiple levels [VAS8 Custom] 06/21/2022 (Approximate) 12/21/2022 Process Instructions: There is no in-house vascular laborer salvage available on weeknights (5pm-8am), weekends, or holidays. IF THIS IS A REQUEST FOR AN EMERGENT STUDY DURING THOSE HOURS, please have the senior provider responsible for the patient page the Vascular Surgery Fellow/Senior Resident mobile application architect to discuss options. Scheduling Instructions: Questions: Indication for study/signs & symptoms: ALI s/p L fem cutdown with thromboembolectomy Question to be answered: Perfusion to feet? Please check toe pressure Preferred location?: [facility] Referral to Cardiology [REF12 Custom] As [...] for admission to Home Health. [address] [facility] [phone] (home) Date of : 1940 Inpatient DOCUMENTATION FOR VNA SERVICES (INCLUDING THOSE PATIENTS WITH MEDICARE COVERAGE REQUIRING HOME VNA SERVICES AND/OR HOSPICE SERVICES) PATIENT'S LOCATION: Koko Zamora [address] [facility] [address] (home) Cell: No relevant phone numbers on file. Dietetic Intern's Name: Koko In discussion with the attending physician, it is certified that this patient is under their care and that they, or a Nurse Practitioner,Clinical Nurse specialist or Physician Sound Printer who is working directly with them, had [...] for managing ADL's. HOME HEALTH CARE AGENCY: [facility] [address] [place] [id number] Start of care: Within 24 to 48 [...] obtained from this patient'sPCP: Bobby Das MD [address] [place] [address] / [place] [address] All VNA agencies which cover the [...] For any problems or questions please call [phone] For issues on weeknights after 5pm and weekends please call [phone] and ask for the Vascular Fellow mobile application architect. JOSEE Santiago Vascular Surgery 05/21/2022 documented in [...] For any problems or questions please call [phone] For issues on weeknights after 5pm and weekends please call [phone] and ask for the Vascular Fellow mobile application architect. documented in this encounter Medications at Time [...] 04/12/20 21 (FLONASE) 50 mcg/actuation Nare route [place], Suspension daily as needed. fluorouraciL (EFUDEX) [...] status, full code. JOSEE Santiago 05/21/2022 Pager: [phone] PaBrannon gamino, PT - 05/21/2022 10:35 AM [...] plan as stated. Time IN / OUT: 3517-9391 Total Minutes, Physical Therapy: 25 Billing Code: 2 TA Brannon Isaacs DPT Pager: [phone] Physical Therapy Inpatient Rehabilitation Department [place] Jean [...] 04/17/2021 in Pain and Spine Center at [facility] Weight 79.8 kg [...] and plan of care per Dr. Mcnamara (scouring machine operator). Please refer to her note above [...] to Hosp-Admission (Current) from 05/15/2022 in [facility] Office Visit from 04/17/2021 in Pain and Spine Center at [facility] Weight 79.8 kg [...] findings andplan of care per Dr. Mcnamara (scouring machine operator). Please refer to her note above [...] a mitral repair in 2000 (not at [facility]) with no CAD [...] AF and the first documented HR at [facility] was 125 bpm [...] management following Dottie Hill APRN 05/20/2022 Pager: [phone] Laney Atkins RN - 05/20/2022 1:14 AM EDT Pt Koko transferred to room from [facility]. A&Ox4, oriented to room and call boo. Masimo and telemetry placed. In agreement with assessment as documented this evening by Nuris ASHLEY. No complaints at this time. Pt aware of NPO status and plan for cardiac cath in AM. Urinal provided. Resting comfortably in bed. Nuris Lester RN - 05/20/2022 1:09 AM EDT Pt. Transferred to [facility]. RN accompanied patient to floor and handed off to [facility] RN Dottie Hill APRN [...] management following Dottie Hill APRN 05/19/2022 Pager: [phone] Emily Sauceda RN - 05/19/2022 6:28 AM EDT OUTCOME EVALUATION NOTE: OUTCOME SUMMARY: Patient AOx4, VSS on RA. Afib on tele. HR controlled w/ PRN metop, given x2. Denies CP, SOB, n/v. See flowsheets for NVC. Dressings to LLE CDI, prevena [place] to groin intact. Voiding to urinal. LBM SEARCH ENGINE OPTIMIZATION CONSULTANT, patient stating he will maybe try [...] adequately without difficulty to bedside urinal. LBM SEARCH ENGINE OPTIMIZATION CONSULTANT. Up to chair this AM with nursing staff. Worked with PT, tolerated well. Diet changed to regular at 1800.Plan is for cardiac cath on Friday. PLAN MOVING FORWARD: Bleeding precautions Pain management neurovascular checks PT/OT picket labor union INDIVIDUALIZED FALL PREVENTION INTERVENTIONS: Patient-specific fall risk [...] mL Intravenous BID ??? PHENobarbitaL 0.12 mg/kg/dose ([place]) Oral BID ??? thiamine 100 mg Oral [...] management following Dottie Hill APRN 05/18/2022 Pager: [phone] Brannon Isaacs, PT - 05/18/2022 10:00 AM [...] Matt Chisholm MD [facility] INTERVENTIONL RAD ??? PRO EMBLC/THRMBC FEMORAL POPLITEAL AORTO-ILIAC ARTERY Left 05/15/2022 EMBOLECTOMY OR THROMBECTOMY, FEMOROPOPLITEAL, AORTOILIAC ARTERY BY LEG INCISION (WRVU 19.48) performed by Fito Summers MD at [facility] MAIN OR Social History: Pt lives [...] in this evaluation. Time IN / OUT: 1047-7114 Total Minutes, Physical Therapy: 30 Billing Code: Basilio Isaacs, PT Pager: [phone] Physical Therapy Inpatient Rehabilitation Department Emily Sauceda RN - 05/18/2022 4:34 AM EDT OUTCOME EVALUATION NOTE: OUTCOME SUMMARY: Patient AOx4, VSS on 2LNC. Afib on tele. HR above 120, MD aware, PRN IV metop given x1, HR returned to 90's-low 100's. Denies CP, SOB, n/v. See flowsheets for NVC. Dressings to LLE CDI, prevena WV to groin intact. Voiding to urinal. LBM SEARCH ENGINE OPTIMIZATION CONSULTANT. Heparin gtt therapeutic. Pain controlled. Patient [...] adequately without difficulty to bedside urinal. LBM SEARCH ENGINE OPTIMIZATION CONSULTANT. Patient not OOB this shift. Currently NPO awaitingprocedure in laboratory inspector. PLAN MOVING FORWARD: Bleeding precautions Pain management neurovascular checks PT/OT NPO for laboratory inspector INDIVIDUALIZED FALL PREVENTION INTERVENTIONS: Patient-specific fall risk [...] lower extremity limb ischemia. He went to [facility] and was startedon heparin and transferred [...] will will be going to the laboratory inspector for evaluation. Will defer PT eval at present but will see as ordered post cardiac catheritizaton. Social Hx:Pt lives with his Ursula in [place], [place] in a 2 level home in [...] WBAT LLE LISBET HERMAN PT Pager # [phone] In-Pt Rehab Medicine Dottie Hill APRN - [...] mL Intravenous BID ??? PHENobarbitaL 0.24 mg/kg/dose ([place]) Oral BID Followed by ??? [START ON 05/18/2022] PHENobarbitaL 0.12 mg/kg/dose ([place]) Oral BID ??? thiamine 100 mg Oral [...] management following Dottie Hill APRN 05/17/2022 Pager: [phone] Sary Dos Santos, RN - 05/17/2022 12:16 [...] mL Intravenous BID ??? PHENobarbitaL 0.48 mg/kg/dose ([place]) Oral BID Followed by ??? [START ON 05/17/2022] PHENobarbitaL 0.24 mg/kg/dose ([place]) Oral BID Followed by ??? [START ON 05/18/2022] PHENobarbitaL 0.12 mg/kg/dose ([place]) Oral BID ??? thiamine 100 mg Oral [...] management following Edward Rodríguez MD 05/16/2022 Pager: [phone] Sary Dos Santos RN - 05/16/2022 12:52 [...] 2129 Hand off to DION Ramirez 3 [place] documented in this encounter H&P Notes Kerry [...] Matt Chisholm MD [facility] INTERVENTIONL RAD Social Hx: Social History [...] Refill ??? fluticasone propionate (FLONASE) 50 mcg/actuation [place], Suspension as needed. ??? fluorouraciL (EFUDEX) [...] and consented. Tim Chicas MD 05/15/2022 Pager: [phone] documented in this encounter ED Notes Lc Harris PA - 05/15/2022 1:20 PM EDT ED Provider Note HPI: Koko Zamora is a 81 y.o. male with history of atrial fibrillation not on anticoagulation, and GI bleeding who presents to the Emergency Department as a transfer from [facility] with left lower extremity limb ischemia. Patient says that the symptoms started roughly 630 this morning when he developed severe pain in his left lower extremity. He went to [facility] and was started on heparin and [...] src: Oral SpO2: 94 % O2 Device: ME O2 Flow Rate (L/min): 2 L/min Physical [...] lower extremity earlier today and went to [facility] where it was determined that he had ischemia of the left lower extremity. Vascular surgery [facility] was contacted and he was transferred [...] orders before pt. Arrival. Pt. Arrived at [facility] by EMS at [...] information for follow-up Home Health & Hospice, [place] [address] [place] [address] Transportation: family or friend will provide Functional [...] type* / Secondary Insurance: [facility] Prescription Coverage: Yes This plan was formulated with input from patient and team. All are in agreement with plan. [facility] for initial IMM. Shawn (Satish) DION López RN/CM - Cellphone: [phone] Pager: [phone] Covering Service RN/CM Plan of Care - [...] catheterization, transferred in hospital bed accompanied by Retail Business Manager RN, remains on telemetry monitoring. Heparin [...] type* / Secondary Insurance: [facility] Last Physical Therapy Recommendation: home with home health, home with supervision with None Last Occupational Therapy Recommendation: with Plan for discharge is: Home w/ Services Outpatient Agency/Support Group Needs: None Home Health Services: Registered Nurse, Physical Therapy, Occupational Therapy Agency Referrals: I have met with the patient to: ?? discuss discharge planning needs. ?? provide the [facility], Office of Care Management letter from the [employer] Center Tech pertaining to rehab referrals. ?? provide a letter describing our affiliations within the [facility] and educate about their right to choose where referrals are sent. ?? provide a list of Home Health Agencies / Durable Medical Equipment vendors which serve their preferred geographic area. ?? provided patient with [facility] Star Quality Rating handout. They have requested referrals to: [facility] [place]. [address] [place] [address] Note routed to a Spot Washer who will communicate referrals to facilities and provide any required information. Transportation: family or friend will provide Barriers to discharge: None Plan going forward: Patient is going for a cardiac cath today and plan will come from there. Patientwas recently seen by PT and they recommend VNA at time of discharge. [facility] was routed and pendedat this time. Care Management will continue to follow and assist with discharge planning and coordination of care as indicated. Anticipated Date of Discharge: 05/21/2022 Nataly RICHMOND RN Phone: [phone] Pager: [phone] Plan of Care - Laney Atkins RN [...] included. [facility] [place] [address] [address] INPATIENT CARDIOLOGY CONSULT NOTE Date of Consultation: 05/17/2022 Admit Date: 05/15/2022 Hospital Day 2 days Reason for Consult: New afib Active Problems: Active Hospital Problems Diagnosis Limb ischemia Resolved Hospital Problems No resolved problems to display. HPI: Koko Zamora is a 81 y.o. male with a PMHx significant for MVP (s/p MV repair 2000), tobacco use, HLD, who presented to [facility] from OSH on 05/15 with acute limb ischemia of LLE and was found to be in atrial fibrillation. Patient had sudden onset LLE pain on 05/15 and presented to [facility], where he was started on heparin and transferred to [facility]. Upon arrival to [facility], patient was in [...] Bobby Marshall MD [facility] INTERVENTIONL RAD IR VERTEBROPLASTY LUMBAR MULTIPLE LEVELS 07/20/2019 IR Vertebroplasty Lumbar Multiple Levels 07/20/2019 Bobby Marshall MD [facility] INTERVENTIONL RAD IR VERTEBROPLASTY THORACIC SINGLE LEVEL 10/25/2020 IR Vertebroplasty Thoracic Single Level 10/25/2020 Matt Chisholm MD [facility] INTERVENTIONL RAD PRO EMBLC/THRMBC FEMORAL POPLITEAL AORTO-ILIAC ARTERY Left 05/15/2022 EMBOLECTOMY OR THROMBECTOMY, FEMOROPOPLITEAL, AORTOILIAC ARTERY BY LEG INCISION (WRVU 19.48) performed by Fito Summers MD at [facility] MAIN OR Allergies Allergen Reactions Aspirin Other (See Comments) GI bleed Out-Patient Medications: Medications Prior to Admission Medication Sig Dispense Refill Last Dose fluorouraciL (EFUDEX) 5 % Cream daily. CRESTOR 40 mg Tablet Take 40 mg by mouth daily. fluticasone propionate (FLONASE) 50 mcg/actuation [place], Suspension as needed. ascorbic acid, vitamin [...] 5 mL Intravenous BID PHENobarbitaL 0.24 mg/kg/dose ([place]) Oral BID Followed by [START ON 05/18/2022] PHENobarbitaL 0.12 mg/kg/dose ([place]) Oral BID thiamine 100 mg Oral Daily folic acid 1,000 mcg Oral Daily multivitamin with minerals 1 tablet Oral Daily heparin (porcine) infusion 1,200 Units/hr (05/17/22 0011) Family History: No family history on file. [...] to Hosp-Admission (Current) from 05/15/2022 in 3 [facility] Office Visit from 04/17/2021 in Pain and Spine Center at [facility] Weight 79.8 kg [...] continue to follow Anne-Marie Larson MD Pager [phone] Clinic: [phone] 05/17/22 6:22 PM Initial Assessments - Ifrah [...] 180 days) Any patient receiving care at [facility] must abide by [place] law. The hierarchy [...] (i) The agent with financial power of erisa attorney or a conservator appointed in accordance [...] raised toilet seat Home Address confirmed as: [address] [place] [phone] Social & Family Supports: All names listed below confirmed with patient as Incorrect. Will notify toni to correct. Wifes address is same as and phone is [phone]. Extended Emergency Contact Information Primary Emergency Contact: Ursula Zamora Address: [address] [place] [address] [address] [place] [address] [facility] Relation: Spouse Current Care Provided by: [...] type* / Secondary Insurance: [facility] Prescription Coverage: Yes Preferred Pharmacy: [id number] - [place], [place] - [address] [facility] [address] [facility] [address] [id number] - [place], [place] - [address] [facility] [address] [facility] [address] [place] Status: Patient is a : unable to assess Primary Care Provider: Bobby Das MD [phone] Patient/Caregiver Goals of Treatment: to walk again Potential Needs for Transition of Care: none noted per 05/16 IDR Transportation: family will provide Transportation Anticipated: family or friend will provide Concerns to be Addressed: no discharge needs identified Assessment: Patient is admitted to vascular surg service for left lower extremity limb ischemia Plan: Per PT OT recommendations . Has used [facility] in the past. A member of the Care Management team will continue to monitor progress, follow for continuity of care and assist with transition of care planning. Ifrah Bell RN BSN Mask InspectorFreight Sales Broker of Care Management Pager [phone] Brief Op Note - Erin Garza MD - 05/15/2022 5:04 PM EDT Brief Operative Note Patient Name: Koko Zamora : [id number] MR#: [id number] Case Date: 05/15/2022 Surgeon: Surgeon(s) and Role: [...] Pre-operative IV antibiotics: Ceftriaxone Op Note - Erni Garza MD - 05/15/2022 2:08 PM EDT [facility] Operative Note Patient Name: Koko Zamora : [id number] MR#: [id number] Case Date: 05/15/2022 Surgeon: Surgeon(s) and Role: [...] Negra Collins MD [facility] [place], [place] [address] (Wo rk) 09/05/2022 Appointment Cardiology Trinity Reid MD [facility] CARDIOLOG[facility] [place], [place] 0[address] (Wo rk) 09/05/2022 Office Visit Cardiology Trinity Reid MD [facility] CARDI[facility] [place], [place] 0[address] (Wo rk) Scheduled Referrals Name [...] Component Value Ref Test Analysis Performed At [facility] Range Method Time Signature VB Text Department: Vascular Surgery Lab VASCUBASE Report Patient: [id number] (KOKO ZAMORA) CPT: 58013 Referring Physician: FITO SUMMERS ?? Phone: Indications: s/p L PRODUCTION TRAINER endart. Diabetes mellitus: no Findings: Right ?Pressure [...] Signature Heparin UFH 0.42 IU/mL [facility] LABORATORY Comment: Heparin (anti-Xa) levels should be [...] Organization Address City/State/[place] [address] Differential, Automated (05/21/2022 6:15 AM EDT) P athologist Signature Neutrophils % 58.8 % [facility] LABORATORY Neutr Abs (ANC) 3.97 1.70 - [facility] 6.10 [facility] x10(3)/[facility] LABORATORY Lymphocytes % 25.2 % [facility] LABORATORY Lymphocytes Abs 1.7 0.9 - 3.2 [facility] x10(3)/[facility] LABORATORY Monocytes % 12.9 % [facility] LABORATORY Monocyte Abs 0.9 0.3 - 0.9 [facility] x10(3)/[facility] LABORATORY Eosinophils % 2.1 % [facility] LABORATORY Eosinophils Abs 0.1 0.0 - 0.4 [facility] x10(3)/[facility] LABORATORY Basophils % 0.4 % [facility] LABORATORY Basophils Abs 0.0 0.0 - 0.1 [facility] x10(3)[facility] LABORATORY Immature Gran % 0.60 % [facility] LABORATORY Comment: Immature granulocytes(IG's)percentage an d absolute count will include metamyelocytes, myelocytes, and promyelo cytes. Blood smears from CBCs yielding IG's will be scanned manually for concor dance. If this scan disagrees with the automated IG or if promyelocytes are not ed, a manual differential will be performed. Rain Gran Abs 0.04 0.00 - 0.04 x10(3)/[facility] LABORATORY Specimen Anatomical Collection Method Collection Time Receive d Time (Source) Location / / Volume Laterality Blood 05/21/2022 6:15 AM 2 6:38 EDT AM EDT Resulting Agency Comment Spec In Lab Edward Rodríguez MD HEMATOLOGY ORDERABLES Performing Organization Address City/State/[place] [address] (ABNORMAL) Hemogram (05/21/2022 6:15 AM EDT) [facility] gist Method Time Signature WBC 6.8 4.0 - 9.5 [facility] x10(3)/[facility] LABORATORY RBC 3.59 (L) 4.58 - [facility] 5.54 [facility] x10(6)/[facility] LABORATORY Hemoglobin 11.8 (L) 13.7 - [facility] 16.5 g/dL [facility] LABORATORY Hematocrit 34.5 (L) 40.5 - [facility] 48.5 % [facility] LABORATORY MCV 96.1 (H) 82.9 - [facility] 93.1 [facility] LABORATORY MCH 32.9 (H) 27.5 - [facility] 32.1 pg [facility] LABORATORY MCHC 34.2 32.0 - [facility] 35.7 g/dL [facility] LABORATORY Platelets 198 145 - 357 [facility] x10(3)/[facility] LABORATORY RDWSD 44.9 36.0 - [facility] 45.0 [facility] LABORATORY RDWCV 12.6 11.4 - [facility] 13.8 % [facility] LABORATORY MPV 10.0 7.6 - 12.9 [facility] LABORATORY nRBC % Auto 0.3 % [facility] LABORATORY nRBC Abs Auto 0.020 (H) 0.000 - [facility] 0.000 [facility] x10(3)/[facility] LABORATORY Specimen Anatomical Collection Method Collection Time Receive d Time (Source) Location / / Volume Laterality Blood 05/21/2022 6:15 AM 2 6:38 EDT AM EDT Resulting Agency Comment Spec In Lab Edward Rodríguez MD HEMATOLOGY ORDERABLES Performing Organization Address City/State/[place] [address] EKG 12 Lead (05/20/2022 7:04 PM EDT) Component Value Ref Range Test Analysis Performed Pathologis t Method Time At Signature Ventricular rate 101 BPM MUSE SYSTEM QRS Duration 116 ms MUSE SYSTEM Q-T Interval 378 ms MUSE SYSTEM QTC Calculated 490 ms MUSE SYSTEM (Bezet) Calculated R [place] -53 degrees MUSE SYSTEM Calculated T [place] 101 degrees MUSE SYSTEM INTERPRETATION Atrial fibrillation [...] Laterality Volume Narrative 05/20/2022 7:09 PM EDT ?[facility] ? Cardiac Cathete rization/Intervention Report ? Patient Name: Koko Zamora. ? Procedure Date: 05/20/2022 ? A #: [id number] ? Primary Physician: Abundio Servin ? Case #: [id number] ? File Name: [id number] ? Catheterization Order Number: [id number] ? [facility] ? Final Report [place], [place] ? Patient Name: ? Koko J. Klarissa uson ? ID#: ?[id number] ? : ?1940 ? Procedure Date: ? [...] was Urgent. The indication for ?the laboratory inspector visit is cardiomyo nita. Chest pain symptom [...] ?3.5 guiding catheter and a 3.5 [address] [facility] [address] ??20 Mhz. ??Imaging ?was successful. ??Image [...] premounted 2. 75 x 30 mm Rudy [place] (AMPARO) was deployed ? with a maximum [...] may require ?modification of this regimen. [facility] Interventional Cardiology for [...] note might be different from the original. [facility] Cardiac Catheterization/Intervention Re port Patient Name: Koko Zamora Procedure Date: 05/20/2022 A #: [id number] Primary Physician: Abundio Servin Case #: File Name: [id number] Catheterization Order Number: [id number] [facility] Retail Business Manager [facility] Final Report [place], [place] Patient Name: Koko Zamora ID#: [id number] : 1940 Procedure Date: May 20, 2022 [...] s ASA Class IV. The [facility] clinical frailty scale is 3: Managing [...] was Urgent. The indication for the laboratory inspector visit is cardiomyopathy. C hest pain symptom [...] 3.5 guiding catheter and a 3.5 Fr [facility] [address] 20 Mhz. Imaging was successful. Image [...] atmospheres. A premounted 2.75 x 30 mm [place] (AMPARO) was deployed with a maximum inflation [...] require modification of this regimen. Consult D [facility] Interventional Cardiology for questions. The 1 [...] Signature POC Glucose 123 65 - 199 [facility] Comment: Supplemental ranges: <140 mg/dL before meals <180 mg/dL all other times of the day Specimen Anatomical Collection Method Collection Time Receive d Time (Source) Location / / Volume Laterality Blood 05/20/2022 5:42 PM 2 5:42 EDT PM EDT Fito Summers MD POINT OF CARE TEST ORDERABLE S Performing Organization Address City/State/[place] [address] (ABNORMAL) BMP w/fasting Glucose (05/20/2022 10:50 AM EDT) athologist Signature Glucose 152 (H) 65 - 99 [facility] Fasting mg/dL [facility] Comment: ?Fasting* Glucose Interpretive C [...] of Diabetes Mellitus, Position Statement from the [place] [employer]. ??Diabete s Care, Volume 33, [...] estions. Chloride 103 98 - 107 mmol/L [facility] CO2 24 22 - 31 mmol/L [facility] Anion Gap 10 5 - 15 mmol/L [facility] Calcium 8.7 8.5 - 10.5 mg/dL [facility] Estimated GFR 97 >=60 mL/min/1.73 m?? [facility] [...] Organization Address City/State/[place] [address] Heparin (unfractionated) Level (05/20/2022 5:02 AM EDT) P athologist Signature Heparin UFH 0.57 IU/mL [facility] LABORATORY Comment: Heparin (anti-Xa) levels should be [...] Organization Address City/State/[place] [address] (ABNORMAL) Differential, Automated (05/20/2022 5:02 AM EDT) Patholo gist Method Time Signature Neutrophils % 58.1 % [facility] Neutr Abs (ANC) 4.52 1.70 - [facility] 6.10 [facility] x10(3)/[facility] LABORATORY Lymphocytes % 24.1 % [facility] Lymphocytes Abs 1.9 0.9 - 3.2 [facility] x10(3)/[facility] LABORATORY Monocytes % 13.8 % [facility] Monocyte Abs 1.1 (H) 0.3 - 0.9 [facility] x10(3)/[facility] LABORATORY Eosinophils % 2.6 % [facility] Eosinophils Abs 0.2 0.0 - 0.4 [facility] x10(3)/[facility] LABORATORY Basophils % 0.8 % [facility] Basophils Abs 0.1 0.0 - 0.1 [facility] x10(3)/[facility] LABORATORY Immature Gran % 0.60 % [facility] Comment: [...] Organization Address City/State/[place] [address] (ABNORMAL) Hemogram (05/20/2022 5:02 AM EDT) Analysis Performed At Patho logist Time Signature WBC 7.8 4.0 - 9.5 [facility] x10(3)/[facility] LABORATORY RBC 3.53 (L) 4.58 - [facility] 5.54 [facility] x10(6)/[facility] LABORATORY Hemoglobin 11.4 (L) 13.7 - [facility] 16.5 g/dL [facility] Hematocrit 34.3 (L) 40.5 - [facility] 48.5 % [facility] MCV 97.2 (H) 82.9 - [facility] 93.1 fL [facility] MCH 32.3 (H) 27.5 - [facility] 32.1 pg [facility] MCHC 33.2 32.0 - [facility] 35.7 g/dL [facility] Platelets 181 145 - 357 [facility] x10(3)/[facility] LABORATORY RDWSD 46.4 (H) 36.0 - [facility] FAY[facility] 45.0 [facility] [place] [facility] LABORATORY RDWCV 13.0 11.4 - [facility] 13.8 % [facility] MPV 10.4 7.6 - 12.9 [facility] LABORATORY nRBC % Auto 0.0 % [facility] nRBC Abs Auto 0.000 0.000 - [facility] 0.000 [facility] x10(3)/[facility] LABORATORY Specimen Anatomical Collection Method Collection Time Receive d Time (Source) Location / / Volume Laterality Blood 05/20/2022 5:02 AM 2 5:19 EDT AM EDT Resulting Agency Comment Spec In Lab Edward Rodríguze MD HEMATOLOGY ORDERABLES Performing Organization Address City/State/[place] [address] Heparin (unfractionated) Level (05/19/2022 3:26 AM EDT) athologist Signature Heparin UFH 0.59 IU/mL [facility] LABORATORY Comment: Heparin (anti-Xa) levels should be [...] Organization Address City/State/[place] [address] (ABNORMAL) Differential, Automated (05/19/2022 3:26 AM EDT) Patholo gist Method Time Signature Neutrophils % 62.1 % [facility] Neutr Abs (ANC) 4.59 1.70 - [facility] 6.10 [facility] x10(3)/[facility] LABORATORY Lymphocytes % 22.1 % [facility] Lymphocytes Abs 1.6 0.9 - 3.2 [facility] x10(3)/[facility] LABORATORY Monocytes % 13.5 % [facility] Monocyte Abs 1.0 (H) 0.3 - 0.9 [facility] x10(3)/[facility] LABORATORY Eosinophils % 1.3 % [facility] Eosinophils Abs 0.1 0.0 - 0.4 [facility] x10(3)/[facility] LABORATORY Basophils % 0.5 % [facility] Basophils Abs 0.0 0.0 - 0.1 [facility] x10(3)/[facility] LABORATORY Immature Gran % 0.50 % [facility] Comment: Immature granulocytes(IG's)percentage an d absolute count will include metamyelocytes, myelocytes, and promyelo cytes. Blood smears from CBCs yielding IG's will be scanned manually for concor dance. If this scan disagrees with the automated IG or if promyelocytes are not ed, a manual differential will be performed. Rain Gran Abs 0.04 0.00 - 0.04 x10(3)/[facility] LABORATORY Specimen Anatomical Collection Method Collection Time Receive d Time (Source) Location / / Volume Laterality Blood 05/19/2022 3:26 AM 3:59 EDT AM EDT Resulting Agency Comment Spec In Lab Edward Rodríguez MD HEMATOLOGY ORDERABLES Performing Organization Address City/State/[place] [address] (ABNORMAL) Hemogram (05/19/2022 3:26 AM EDT) Analysis Performed At Path logist Time Signature WBC 7.4 4.0 - 9.5 [facility] x10(3)/[facility] LABORATORY RBC 3.74 (L) 4.58 - [facility] 5.54 [facility] x10(6)/[facility] LABORATORY Hemoglobin 12.1 (L) 13.7 - [facility] 16.5 g/dL [facility] Hematocrit 36.4 (L) 40.5 - [facility] 48.5 % [facility] MCV 97.3 (H) 82.9 - [facility] 93.1 [facility] LABORATORY MCH 32.4 (H) 27.5 - [facility] 32.1 pg [facility] MCHC 33.2 32.0 - [facility] 35.7 g/dL [facility] Platelets 168 145 - 357 [facility] x10(3)/[facility] LABORATORY RDWSD 46.9 (H) 36.0 - [facility] 45.0 [facility] LABORATORY RDWCV 13.0 11.4 [facility] 13.8 % [facility] MPV 10.5 7.6 - 12.9 [facility] nRBC % Auto 0.0 % [facility]ORAT[facility] nRBC Abs Auto 0.000 0.000 - [facility] 0.000 [facility] x10(3)/[facility] LABORATORY Specimen Anatomical Collection Method Collection Time Receive d Time (Source) Location / / Volume Laterality Blood 05/19/2022 3:26 AM 3:59 EDT AM EDT Resulting Agency Comment Spec In Lab Edward Rodríguez MD HEMATOLOGY ORDERABLES Performing Organization Address City/State/[place] [address] TSH (05/18/2022 8:00 PM EDT) P athologist Signature TSH 2.27 0.27 - 4.20 [facility] mcIU/mL [facility] Comment: Reference Interval (mcIU/mL): Females: ??First Trimester: 0.23-3.88 ??Second Trimester: 0.22-3.90 ??Third Trimester: 0.44-4.66 Specimen Anatomical Collection Method Collection Time Receive d Time (Source) Location / / Volume Laterality Blood 05/18/2022 8:00 PM 2 8:06 EDT PM EDT Resulting Agency Comment Spec In Lab Fito Summers MD CHEMISTRY ORDERABLES Performing Organization Address City/State/ZIP Code Phon e Number [facility] [place] [address] (ABNORMAL) Differential, Automated (05/18/2022 3:34 AM EDT) [facility] gist Method Time Signature Neutrophils % 67.2 % [facility]OR[facility]ORY Neutr Abs (ANC) 5.89 1.70 - [facility] 6.10 [facility] x10(3)/[facility] LABORATORY Lymphocytes % 17.1 % [facility] LABORATORY Lymphocytes Abs 1.5 0.9 - 3.2 [facility] x10(3)/[facility] LABORATORY Monocytes % 13.6 % [facility] LABORATORY Monocyte Abs 1.2 (H) 0.3 - 0.9 [facility] x10(3)/[facility] LABORATORY Eosinophils % 1.0 % [facility] LABORATORY Eosinophils Abs 0.1 0.0 - 0.4 [facility] x10(3)/[facility] LABORATORY Basophils % 0.6 % [facility] LABORATORY Basophils Abs 0.0 0.0 - 0.1 [facility] x10(3)/[facility] LABORATORY Immature Gran % 0.50 % [facility]ORY Comment: Immature granulocytes(IG's)percentage an d absolute count will include metamyelocytes, myelocytes, and promyelo cytes. Blood smears from CBCs yielding IG's will be scanned manually for concor dance. If this scan disagrees with the automated IG or if promyelocytes are not ed, a manual differential will be performed. Rain Gran Abs 0.04 0.00 - 0.04 x10(3)/[facility] LABORATORY Specimen Anatomical Collection Method Collection Time Receive d Time (Source) Location / / Volume Laterality Blood 05/18/2022 3:34 AM 2 3:48 EDT AM EDT Resulting Agency Comment Spec In Lab Edward N Facciponte MD HEMATOLOGY ORDERABLES Performing Organization Address City/[facility]/[place] [address] (ABNORMAL) Hemogram (05/18/2022 3:34 AM EDT) Analysis Performed At Patho logist Time Signature WBC 8.8 4.0 - 9.5 [facility] x[facility](3[facility] LABORATORY RBC 3.45 (L) 4.58 - [facility] 5.54 [facility] x10(6[facility] LABORATORY Hemoglobin 11.2 (L) 13.7 - [facility] 16.5 g/dL [facility] Hematocrit 33.0 (L) 40.5 - [facility] 48.5 % [facility] MCV 95.7 (H) 82.9 - [facility] 93.1 [facility] LABORATORY MCH 32.5 (H) 27.5 - [facility] 32.1 pg [facility] MCHC 33.9 32.0 - [facility] 35.7 g/dL [facility] Platelets 130 (L) 145 - 357 [facility] x10(3)/[facility] LABORATORY RDWSD 46.2 (H) 36.0 - [facility] 45.0 [facility] LABORATORY RDWCV 13.2 11.4 - [facility] 13.8 % [facility] LABORATORY MPV 10.8 7.6 - 12.9 [facility] LABORATORY nRBC % Auto 0.0 % [facility] LABORATORY nRBC Abs Auto 0.000 0.000 - [facility] 0.000 [facility] x10(3)/[facility] LABORATORY Specimen Anatomical Collection Method Collection Time Receive d Time (Source) Location / / Volume Laterality Blood 05/18/2022 3:34 AM 3:48 EDT AM EDT Resulting Agency Comment Spec In Lab Edward Rodríguez MD HEMATOLOGY ORDERABLES Performing Organization Address City/[facility]/[place] [address] Heparin (unfractionated) Level (05/18/2022 3:34 AM EDT) athologist Signature Heparin UFH 0.59 IU/mL [facility] LABORATORY Comment: Heparin (anti-Xa) levels should be [...] Organization Address City/State/ZIP Code Phon e Number [address] Magnesium (05/17/2022 3:33 AM EDT) athologist Signature Magnesium 0.76 0.69 - 1.07 [facility] mmol/L [facility] LABOR[facility]ORY Specimen Anatomical Collection Method Collection Time Receive d Time (Source) Location / / Volume Laterality Blood Venous Draw / 05/17/2022 3:33 AM 05/17/20 4:05 Unknown EDT AM EDT Resulting Agency Comment Spec In Lab Dottie Hill APRN CHEMISTRY ORDERABLES Performing Organization Address City/State/ZIP Code Phon e Number [address] (ABNORMAL) Basic Metabolic Panel (non-fasting) (05/17/2022 3:33 AM EDT) athologist Signature Glucose Lvl 158 65 - 199 [facility] mg/dL [facility] Comment: Diabetes: >=200 mg/dL plus [...] estions. Chloride 102 98 - 107 mmol/L [facility]ORY CO2 25 22 - 31 mmol/L [facility] LAB[facility]ORY Anion Gap 10 5 - 15 mmol/L [facility] LABORATORY Calcium 8.4 (L) 8.5 - 10.5 mg/dL [facility] LABORATORY Estimated GFR 92 >=60 mL/min/1.73 m?? [facility] [...] Organization Address City/State/[place] [address] (ABNORMAL) Differential, Automated (05/17/2022 3:33 AM EDT) Patholo gist Method Time Signature Neutrophils % 65.5 % [facility] LABORATORY Neutr Abs (ANC) 6.84 (H) 1.70 - [facility] 6.10 [facility] x10(3)/[facility] LABORATORY Lymphocytes % 19.7 % [facility] LABORATORY Lymphocytes Abs 2.1 0.9 - 3.2 [facility] x10(3)/[facility] LABORATORY Monocytes % 13.1 % [facility] LABORATORY Monocyte Abs 1.4 (H) 0.3 - 0.9 [facility] x10(3)/[facility] LABORATORY Eosinophils % 0.6 % [facility] LABORATORY Eosinophils Abs 0.1 0.0 - 0.4 [facility] x10(3)/[facility] LABORATORY Basophils % 0.6 % [facility]ORATORY Basophils Abs 0.1 0.0 - 0.1 [facility] x10(3)/[facility] LABORATORY Immature Gran % 0.50 % [facility] LABORATORY Comment: [...] Organization Address City/State/[place] [address] (ABNORMAL) Hemogram (05/17/2022 3:33 AM EDT) Analysis Performed At [facility] logist Time Signature WBC 10.4 (H) 4.0 - 9.5 [facility] x10(3)/[facility] LABORATORY RBC 3.72 (L) 4.58 - [facility] 5.54 [facility] x10(6)/[facility] LABORATORY Hemoglobin 12.0 (L) 13.7 - [facility] 16.5 g/dL [facility] LAB[facility]ORY Hematocrit 36.4 (L) 40.5 - [facility] 48.5 % [facility] LABORATORY MCV 97.8 (H) 82.9 - [facility] 93.1 [facility] LABORATORY MCH 32.3 (H) 27.5 - [facility] 32.1 pg [facility] LABORATORY MCHC 33.0 32.0 - [facility] 35.7 g/dL [facility] LABORATORY Platelets 149 145 - 357 [facility] x10(3)/[facility] LABORATORY RDWSD 48.7 (H) 36.0 - [facility].[address] [facility] RDWCV 13.5 11.4 - [facility] 13.8 % [facility] LABORATORY MPV 10.6 7.6 - 12.9 [facility] LABORATORY nRBC % Auto 0.0 % [facility] LABORATORY nRBC Abs Auto 0.000 0.000 - [facility] 0.000 [facility] x10(3)/[facility] LABORATORY Specimen Anatomical Collection Method Collection Time Receive d Time (Source) Location / / Volume Laterality Blood 05/17/2022 3:33 AM 3:53 EDT AM EDT Resulting Agency Comment Spec In Lab Edward Rodríguez MD HEMATOLOGY ORDERABLES Performing Organization Address City/State/[place] [address] (ABNORMAL) Urinalysis Microscopic Exam (05/16/2022 11:15 PM EDT) P athologist Signature RBC UA 8 (H) 0 - 3 /HPF [facility] LABORATORY WBC UA 2 0 - 3 /HPF [facility] LABORATORY Specimen Anatomical Collection Method Collection Time Receive d Time (Source) Location / / Volume Laterality Clean Catch 05/16/2022 11:15 05/16/2022 Urine PM EDT 11:30 PM EDT Resulting Agency Comment Spec In Lab Barbie Ashraf MD URINE ORDERABLES Performing Organization Address City/State/ZIP Code Phon e Number [address] (ABNORMAL) Urinalysis with reflex Culture (05/16/2022 11:15 PM EDT) Patholo gist Method Time Signature Glucose UA Negative Negative [facility] mg/dL [facility] LABORATORY Protein UA Negative Negative [facility] mg/dL [facility] LAB[facility]ORY Bilirubin UA Negative Negative [facility] mg/dL [facility] LAB[facility]ORY Comment: Clinical correlation required for [...] [facility] LABORATORY Blood UA Small (A) Negative mg/dL [facility] LABORATORY Ketones UA Trace (A) Negative mg/dL [facility] LABORATORY Nitrite UA Negative Negative [facility] LABORATORY Leukocytes UA Negative Negative [facility] LABORATORY Appearance UA Clear Clear [facility] LABORATORY Spec [place] UA 1.021 1.005 - 1.030 [facility] LABORATORY Color UA Yellow Yellow [facility] LABORATORY Culture Reflexed No [facility] LABORATORY Specimen Anatomical Collection Method Collection Time Receive d Time (Source) Location / / Volume Laterality Clean Catch 05/16/2022 11:15 05/16/2022 Urine PM EDT 11:30 PM EDT Resulting Agency Comment Spec In Lab Fito Summers MD URINE ORDERABLES Performing Organization Address City/[facility]/[place] [address] Heparin (unfractionated) Level (05/16/2022 [...] Organization Address City/State/[place] [address] XR Chest One View [...] have questions please contact the health career development counselor that requested your imaging first. ? Electronically signed by: Tiffanie George MD , [facility] ([phone]), at 05/16/2022 9:27 PM Narrative 05/16/2022 9:27 [...] have questions please contact the health career development counselor that requested your imaging first. Electronically signed by: Tiffanie George MD , [facility] ([phone]), at 05/16/2022 9:27 PM Fito Summers MD IMG DX ORDERABLES EKG 12 Lead (05/16/2022 8:57 PM EDT) Component Value Ref Range Test Analysis Performed Pathologis t Method Time At Signature Ventricular rate 117 BPM MUSE SYSTEM QRS Duration 112 ms MUSE SYSTEM Q-T Interval 346 ms MUSE SYSTEM QTC Calculated 482 ms MUSE SYSTEM (Bezet) Calculated R [place] -48 degrees MUSE SYSTEM Calculated T [place] 111 degrees MUSE SYSTEM INTERPRETATION Atrial fibrillation [...] EDT) athologist Signature Heparin UFH 0.53 IU/mL [facility] LABORATORY Comment: Heparin (anti-Xa) levels should be [...] Organization Address City/State/[place] [address] ECHOCARDIOGRAM COMPLETE W CONTRAST (05/16/2022 12:49 PM EDT) athologist Signature EF 28 HEARTLAB SYSTEM Anatomical Region Laterality Modality Cardiac Other Specimen (Source) Anatomical Collection Method Collection Time Re ceived Time Location / / Volume Laterality 05/16/2022 11:22 AM EDT Narrative 05/16/2022 1:54 PM EDT [facility] ?[address] ? [place] [address] ?Voice: ?Fax: ? Echocardiogram Report Name: KOKO ZAMORA ?Study Date: 05/16/2022 11:22 AM ? Patient Location: 3T 0303 B : 1940 ? Height: 67.5 in ? Account: [id number] Age: 81 yrs ? Weight: 176 lb Gender: Male ?BSA: 1.9 m2 Ordering Physician: FITO SUMMERS Referring Physician: MALI FLORIAN Performed By: Jolene Bernard RDCS Exam Location: [facility]. Interpretation Summary Left ventricle is mildly dilated. [...] and LV systolic dysfunction are new. Procedure [id number]. Image enhancement Optiso n was used for [...] note might be different from the original. [facility] [address] [place] [address] Voice: Fax: Echocardiogram Report Name: KOKO ZAMORA Study Date: 05/2022 11:22 AM Patient Location: [address] [place] [address] : 1940 Height: 67.5 in Account: [id number] Age: 81 yrs Weight: 176 lb Gender: Male BSA: 1.9 m2 Ordering Physician: FITO SUMMERS Referring Physician: MALI FLORIAN Performed By: Jolene Bernard RDCS Exam Location: [facility]. Interpretation Summary Left ventricle is mildly dilated. [...] and LV systolic dysfunction are new. Procedure Complete-[id number]. Image enhancement Optiso n was used for [...] (ABNORMAL) Differential, Automated (05/16/2022 3:01 AM EDT) [facility] Method Time Signature Neutrophils % 78.8 % [facility] LABORATORY Neutr Abs (ANC) 9.11 (H) 1.70 - [facility] 6.10 [facility] x10(3)/[facility] LABORATORY Lymphocytes % 9.4 % [facility] LABORATORY Lymphocytes Abs 1.1 0.9 - 3.2 [facility](3[facility] LABORATORY Monocytes % 10.9 % [facility] LABORATORY Monocyte Abs 1.3 (H) 0.3 - 0.9 [facility] x10(3)/[facility] LABORATORY Eosinophils % 0.0 % [facility] LABORATORY Eosinophils Abs 0.0 0.0 - 0.4 [facility] x10(3)/[facility] LABORATORY Basophils % 0.3 % [facility] LABORATORY Basophils Abs 0.0 0.0 - 0.1 [facility] x10(3)/[facility] LABORATORY Immature Gran % 0.60 % [facility] LABORATORY Comment: [...] Organization Address City/State/[place] [address] (ABNORMAL) Hemogram (05/16/2022 3:01 AM EDT) Analysis Performed At Patho logist Time Signature WBC 11.6 (H) 4.0 - 9.5 [facility] x10(3)/[facility] LABORATORY RBC 3.62 (L) 4.58 - [facility] 5.54 [facility] x10(6)/[facility] LABORATORY Hemoglobin 12.0 (L) 13.7 - [facility] 16[facility] g/dL [facility] LABORATORY Hematocrit 35.3 (L) 40.5 - [facility] 48.5 % [facility] LABORATORY MCV 97.5 (H) 82.9 - [facility] 93.1 fL [facility] LABORATORY MCH 33.1 (H) 27.5 - [facility] 32.1 pg [facility] LABORATORY MCHC 34.0 32.0 - [facility] 35.7 g/dL [facility] LABORATORY Platelets 151 145 - 357 [facility] x10(3)/[facility] LABORATORY RDWSD 47.6 (H) 36.0 - [facility] FAYE 45.0 [facility] LABORATORY RDWCV 13.3 11.4 - [facility] 13.8 % [facility] LABORATORY MPV 10.5 7.6 - 12.9 [facility] LABORATORY nRBC % Auto 0.0 % [facility] LABORATORY nRBC Abs Auto 0.000 0.000 - [facility] 0.000 [facility] x10(3)/[facility] LABORATORY Specimen Anatomical Collection Method Collection Time Receive d Time (Source) Location / / Volume Laterality Blood 05/16/2022 3:01 AM 2 3:36 EDT AM EDT Resulting Agency Comment Spec In Lab Erin Garza MD HEMATOLOGY ORDERABLES Performing Organization Address City/[facility]/[place] [address] Phosphorus (05/16/2022 3:01 AM EDT) athologist Signature Phosphorus 3.7 2.5 - 4.5 [facility] mg/dL [facility] LABORATORY Specimen Anatomical Collection Method Collection Time Receive d Time (Source) Location / / Volume Laterality Blood 05/16/2022 3:01 AM 2 3:36 EDT AM EDT Resulting Agency Comment Spec In Lab Fito Summers MD CHEMISTRY ORDERABLES Performing Organization Address City/[facility]/ZIP Code Phon e Number [address] Magnesium (05/16/2022 3:01 AM EDT) P athologist Signature Magnesium 0.77 0.69 - 1.07 [facility] mmol/L [facility] LABORATORY Specimen Anatomical Collection Method Collection Time Receive d Time (Source) Location / / Volume Laterality Blood 05/16/2022 3:01 AM 2 3:36 EDT AM EDT Resulting Agency Comment Spec In Lab Fito Summers MD CHEMISTRY ORDERABLES Performing Organization Address City/[facility]/[place] [address] (ABNORMAL) Basic Metabolic Panel (non-fasting) (05/16/2022 3:01 AM EDT) P athologist Signature Glucose Lvl 222 (H) 65 - 199 [facility] mg/dL [facility] LABORATORY Comment: Diabetes: >=200 mg/dL plus [...] mmol/L [facility] LABORATORY CO2 22 22 - 31 mmol/L [facility] LABORATORY Anion Gap 8 5 - 15 mmol/L [facility] LABORATORY Calcium 8.2 (L) 8.5 - 10.5 mg/dL [facility] LABORATORY Estimated GFR 95 >=60 mL/min/1.73 m?? [facility] [...] Organization Address City/State/[place] [address] (ABNORMAL) BLOOD GAS 2 ARTERIAL (05/15/2022 3:33 PM EDT) Analysis Performed At Patho logist Time Signature pH Art 7.33 (L) 7.35 - [facility] 7.45 [facility] LABORATORY pCO2 Art 41 35 - 45 [facility] LABORATORY pO2 Art 131 (H) 85 - 104 [facility] LABORATORY HCO3 Art 21.1 20.0 - [facility] 26.0 [facility] mmol/L [facility] LABORATORY BE Art -4.8 (L) -3.0 - 3.0 [facility] mmol/L [facility] LABORATORY Hgb Blood Gas 13.4 (L) 13.7 - [facility] 16.5 g/dL [facility] LABORATORY O2HB Art 96.9 94.0 - [facility] 97.0 % [facility] LABORATORY COHB Art 1.4 % [facility] LABORATORY Comment: Nonsmokers: 0.5-1.5% COHB Smokers: Variable, but usually less than 10% Toxic: 20-30% COHB Lethal: Greater than 60% COHB METHB Art 0.3 <=1.5 % [facility] LABORATORY Na Whole Blood 139 135 - 145 mmol/L [facility] LABORATORY K Whole Blood 3.8 3.5 - 5.0 mmol/L [facility] LABORATORY Comment: Please note: Patients with WBC >100,000 may have falsely elevated Potassium levels. Contact the Clinical Chemistry L aboratory if there are any questions. ICa Whole Blood 1.32 1.15 - 1.33 mmol/L [facility] [...] Lactate WB 2.0 0.5 - 2.2 mmol/L [facility] LABORATORY Specimen Anatomical Collection Method Collection Time Receive d Time (Source) Location / / Volume Laterality Blood 05/15/2022 3:33 PM 2 3:[address] Jamel Torre MD CHEMISTRY ORDERABLES Performing Organization Address City/State/[place] [address] (ABNORMAL) BLOOD GAS 2 ARTERIAL (05/15/2022 2:06 PM EDT) Analysis Performed At Patho logist Time Signature pH Art 7.39 7.35 - [facility] 7.45 [facility] LABORATORY pCO2 Art 35 35 - 45 [facility] mmHg [facility] LABORATORY pO2 Art 135 (H) 85 - 104 [facility] LABORATORY HCO3 Art 20.8 20.0 - [facility] 26.0 [facility] mmol/[facility] LABORATORY BE Art -4.2 (L) -3.0 - 3.0 [facility] mmol/L [facility] LABORATORY Hgb Blood Gas 14.5 13.7 - [facility] 16.5 g/dL [facility] O2HB Art 97.2 (H) 94.0 - [facility] 97.0 % [facility] LABORATORY COHB Art 1.2 % [facility] LABORATORY Comment: Nonsmokers: 0.5-1.5% COHB Smokers: Variable, but usually less than 10% Toxic: 20-30% COHB Lethal: Greater than 60% COHB METHB Art 0.3 <=1.5 % [facility] LABORATORY Na Whole Blood 140 135 - 145 mmol/L [facility] LABORATORY K Whole Blood 3.8 3.5 - 5.0 mmol/L [facility] LABORATORY Comment: Please note: Patients with WBC >100,000 may have falsely elevated Potassium levels. Contact the Clinical Chemistry L aboratory if there are any questions. ICa Whole Blood 1.12 (L) 1.15 - 1.33 mmol/L [facility] [...] Lactate WB 1.5 0.5 - 2.2 mmol/L [facility] LABORATORY Specimen Anatomical Collection Method Collection Time Receive d Time (Source) Location / / Volume Laterality Blood 05/15/2022 2:06 PM 2 2:[address] Jamel Torre MD CHEMISTRY ORDERABLES Performing Organization Address City/[facility]/ZIP Code Phon e Number [place] [id number] HOS[address] LAB[address]ORY Drive (ABNORMAL) Prothrombin Time (05/15/2022 12:30 PM EDT) P athologist Signature PT 12.9 (H) 9.4 - 12.5 [facility] LABORATORY INR 1.1 [facility] LABORATORY Comment: An INR <2.0 [...] City/[facility]/[place] [address] (ABNORMAL) APTT (05/15/2022 12:30 PM EDT) P athologist Signature PTT 76 (H) 25 - 37 sec [facility] LABORATORY Comment: The PTT is [...] Jhonny Morales HEMATOLOGY ORDERABLES Performing Organization Address City/[facility]/[place] [address] Gold Tube HOLD (05/15/2022 12:20 PM EDT) P athologist Signature Gold Hold Sample in [facility]. [facility] LABORATORY Specimen Anatomical Collection Method Collection Time Receive d Time (Source) Location / / Volume Laterality Blood No Charge / 05/15/2022 12:20 05/15/2022 Unknown PM EDT 12:20 PM EDT Lc TRIPP CHEMISTRY ORDERABLES Performing Organization Address City/[facility]/[place] [address] Type and Screen Validity (05/15/2022 12:00 PM EDT) [facility] [employer] Method Time Signature T&S only valid [facility] Hosp [facility] LABORATORY Comment: This Type and Screen result is only valid at the [facility] Hospital Specimen Anatomical Collection Method Collection Time Receive d Time (Source) Location / / Volume Laterality Blood 05/15/2022 12:00 05/15/2022 PM EDT 12:17 PM EDT Resulting Agency Comment Spec In Lab Lc TRIPP BLOOD BANK ORDERABLES Performing Organization Address City/[facility]/ZIP Code Phon e Number [address] ABORH Recheck Status (05/15/2022 12:00 PM EDT) [facility] [employer] Method Time Signature ABORH Recheck Order Placed [facility] LABORATORY ABORH Type Complete [facility] LABORATORY Specimen Anatomical Collection Method Collection Time Receive d Time (Source) Location / / Volume Laterality Blood 05/15/2022 12:00 05/15/2022 PM EDT 12:17 PM EDT Resulting Agency Comment Spec In Lab Lc TIRPP BLOOD BANK ORDERABLES Performing Organization Address City/State/[place] [address] CK (05/15/2022 12:00 PM EDT) P athologist Signature CK, Total 87 0 - 200 [facility] unit/L [facility] LABORATORY Specimen Anatomical Collection Method Collection Time Receive d Time (Source) Location / / Volume Laterality Blood Venous Draw / 05/15/2022 12:00 05/15/2022 Unknown PM EDT 12:19 PM EDT Resulting Agency Comment Spec In Lab Fito Summers MD CHEMISTRY ORDERABLES Performing Organization Address City/[facility]/[place] [address] Antibody screen (05/15/2022 12:00 PM EDT) [facility] g[facility] Method Time Signature Ab Screen Negative [facility] LABORATORY Expires at 05/18/2022 [facility] [id number] on: [facility] LABORATORY Specimen Anatomical Collection Method Collection Time Receive d Time (Source) Location / / Volume Laterality Blood 05/15/2022 12:00 05/15/2022 PM EDT 12:17 PM EDT Resulting Agency Comment Spec In Lab Lc Dominick Kimberly TRIPP BLOOD BANK ORDERABLES Performing Organization Address City/[facility]/[place] [address] ABO/Rh Typing (05/15/2022 12:00 [...] City/[facility]/[place] [address] (ABNORMAL) Differential, Automated (05/15/2022 12:00 PM EDT) [facility] Time Signature Neutrophils % 79.4 % [facility] LABORATORY Neutr Abs (ANC) 7.49 (H) 1.70 - [facility] 6.10 [facility] x10(3)/[facility] LABORATORY Lymphocytes % 11.3 % [facility] LABORATORY Lymphocytes Abs 1.1 0.9 - 3.2 [facility] x10(3)/[facility] LABORATORY Monocytes % 7.8 % [facility] LABORATORY Monocyte Abs 0.7 0.3 - 0.9 [facility] x10(3)/[facility] LABORATORY Eosinophils % 0.6 % [facility] LABORATORY Eosinophils Abs 0.1 0.0 - 0.4 [facility] x10(3)/[facility] LABORATORY Basophils % 0.6 % [facility] LABORATORY Basophils Abs 0.1 0.0 - 0.1 [facility] x10(3)/[facility] LABORATORY Immature Gran % 0.30 % [facility] LABORATORY Comment: Immature granulocytes(IG's)percentage an d absolute count will include metamyelocytes, myelocytes, and promyelo cytes. Blood smears from CBCs yielding IG's will be scanned manually for concor dance. If this scan disagrees with the automated IG or if promyelocytes are not ed, a manual differential will be performed. Rain Gran Abs 0.03 0.00 - 0.04 x10(3)/[facility] LABORATORY Specimen Anatomical Collection Method Collection Time Receive d Time (Source) Location / / Volume Laterality Blood 05/15/2022 12:00 05/15/2022 PM EDT 12:19 PM EDT Resulting Agency Comment Spec In Lab Lc TRIPP HEMATOLOGY ORDERABLES Performing Organization Address City/State/[place] [address] (ABNORMAL) Hemogram (05/15/2022 12:00 PM EDT) Analysis Performed At [facility] logist Time Signature WBC 9.4 4.0 - 9.5 [facility] x10(3)/[facility] LABORATORY RBC 4.48 (L) 4.58 - [facility] 5.54 [facility] x10(6)/[facility] LABORATORY Hemoglobin 14.5 13.7 - [facility] 16.[facility] g/dL [facility] LABORATORY Hematocrit 42.4 40.5 - [facility] 48.5 % [facility] LABORATORY MCV 94.6 (H) 82.9 [facility] 93[facility]1 [facility] LABORATORY MCH 32.4 (H) 27.5 - [facility] 32.1 pg [facility] LABORATORY MCHC 34.2 32.0 [facility] 35.7 g/dL [facility] LABORATORY Platelets 209 145 - 357 [facility] x10(3)/[facility] LABORATORY RDWSD 45.9 (H) 36.0 [facility] 45.0 [facility] LABORATORY RDWCV 13.1 11.4 [facility] 13.8 % [facility] LABORATORY MPV 10.5 7.6 - 12.9 [facility] LABORATORY nRBC % Auto 0.0 % [facility] LABORATORY nRBC Abs Auto 0.000 0.000 - [facility] 0.000 [facility] x10(3)/[facility] LABORATORY Specimen Anatomical Collection Method Collection Time Receive d Time (Source) Location / / Volume Laterality Blood 05/15/2022 12:00 05/15/2022 PM EDT 12:19 PM EDT Resulting Agency Comment Spec In Lab Lc TRIPP HEMATOLOGY ORDERABLES Performing Organization Address City/State/[place] [address] (ABNORMAL) Basic Metabolic Panel (non-fasting) (05/15/2022 12:00 PM EDT) athologist Signature Glucose Lvl 203 (H) 65 - 199 [facility] mg/dL [facility] LABORATORY Comment: Diabetes: >=200 mg/dL plus symp toms BUN 16 10 - 20 mg/dL [facility] LABORATORY Creatinine 0.84 0.80 - 1.50 mg/dL [facility] OCK [facility] LABORATORY Sodium 141 135 - 145 [...] [facility] LABORATORY Anion Gap 11 5 - 15 mmol/L [facility] LABORATORY Calcium 8.5 8.5 - 10.5 mg/dL [facility] LABORATORY Estimated GFR 89 >=60 mL/min/1.73 m?? [facility] [...] Organization Address City/State/[place] [address] documented in this encounter [...] (Given - Provider: Barbie Joyce , RN)1750 ([facility] Hold - Provider: Admin Adt - Reason: Transfer to a Procedural area)1955 ([facility] Unhold - Provider: Admin Adt) 15 (Given - Provider: Etta contreras RN) 1,000 mcg, Oral, DAILY, First dose on 05/16/22 at 0900, Until Discontinued, Routine metoprolol tartrate (Lopressor) tablet 12.5 mg (CANCEL ED) 0838 (Given - Provider: Caroline Zamora, DION)2008 (Given - Provider: Nuris Lester RN) 0853 (Given - Provider: Barbie Joyce RN)1750 ([facility] Hold - Provider: Admin Adt - Reason: Transfer to a Procedural area)1955 ([facility] Unhold - Provider: Admin Adt)2004 (Given [...] (Given - Provider: Barbie Joyce , DION)1750 ([facility] Hold - Provider: Admin Adt - Reason: Transfer to a Procedural area)1955 ([facility] Unhold - Provider: Admin Adt) 0816 [...] 0853 (Given - Provider: Barbie Joyce RN)1750 ([facility] Hold - Provider: Admin Adt - Reason: Transfer to a Procedural area)1955 ([facility] Unhold - Provider: Admin Adt) 0817 (Given - Provider: Etta contreras RN) 0.4 mg, Oral, DAILY, First dose on Fri at 0900, Until Discontinued, DO NOT CRUSH OR OPEN, Routine thiamine (Vitamin B1) tablet 100 mg 0838 (Given - Prov ider: Caroline Zamora RN) 0853 (Given - Provider: Barbie Joyce RN)1750 ([facility] Hold - Provider: Admin Adt - Reason: Transfer to a Procedural area)1955 ([facility] Unhold - Provider: Admin Adt) 0816 (Given - Provider: Etta contreras RN) 100 mg, Oral, DAILY, First dose on Fri at 0900, Until Discontinued, Routine valsartan (Diovan) tablet 40 mg 0838 (Given - Provider : Caroline Zamora, DION)2008 (Given - Provider: Nuris Lester RN) 0853 (Given - Provider: Barbie Joyce RN)1750 ([facility] Hold - Provider: Admin Adt - Reason: Transfer to a Procedural area)1955 ([facility] Unhold - Provider: Admin Adt)2005 (Given [...] - Reason: Transfer to a Procedural area)1955 ([facility] Unhold - Provider: Admin Adt) 5-10 [...]
Routine documented in this encounter Care Teams Oxygraph Operator Relationship Specialty Start Date End Date Bobby Das MD PCP - General 10/02/[address] [place] [address] [place] [phone] documented as of this encounter
--- OUTSIDE RECORDS SUMMARY | 2022-07-22 10:28 | XMS_ITS | Encounter Summary ---
:1940 Author Organization [facility] Address [facility] [place] [address] Care Team Providers Name Role Phone Bobby Das MD Primary Care Provider Reason for Visit - Closed Specialty Diagnoses / Procedures Referred By Contact Refer red To Contact Procedures Bobby Das MD Film Library- Storage Only [address] [place] [id number] Referral ID Status Reason Start Date Expiration Date Visits Requ ested Visits Authorized [id number] Closed 02/23/2021 02/23/2022 1 1 Encounter Details Date Type Department Care Team Description 02/20/2021 Ancillary Procedure Radiology Library at Bobby Almaguer MD [address] [phone] (Rebekah rojas) Social History Tobacco Use Types [...] MD [facility] DR GASTROENTEROLOGY DEPT [place], [place] [address] (Wo rk) 09/05/2022 Appointment Cardiology Trinity Reid MD [facility] CARDIOLOGY [place], [place] [address] (Wo rk) 09/05/2022 Office Visit Cardiology Trinity Reid MD [facility] CARDIOLOGY [place], [place] [address] (Wo rk) documented as of [...] City/State/ZIP Code Phon e Number [place], [place] documented in this encounter Visit Diagnoses Not on filedocumented in this encounter Care Teams Tube Inspector Relationship Specialty Start Date End Date Bobby Das MD PCP - General 10/02/[address] [place] [address] [place] [phone] documented as of this encounter
--- OUTSIDE RECORDS SUMMARY | 2022-07-22 10:28 | XMS_ITS | Encounter Summary ---
:1940 Author Organization [facility] [place] [address] Care Team Providers Name Role Phone Bobby Das MD Primary Care Provider Reason for Visit Reason Comments Suture / Staple Removal Encounter Details Date Type Department Care Team Description 08/31/2015 Clinical Support Dermatology at [facility] Visit for suture Heat Nicol Estrella MD removal [address] [facility] [address] [facility] [phone] RD-DERMATOLOGY [place] [id number] Social History Tobacco Use Types Packs/Day Years Used Date Current Some Day Smoker 1 50 Smokeless Tobacco: Never Used Sex Assigned at Date Recorded Not on file documented as of this encounter Progress Notes Jeni Franco LPN - 08/31/2015 2:47 PM EDT HPI: Patient is a 74 y.o. male with history of basal cell carcinoma, right cheondoism, s/p Mohs repairedby transposition flap repair who is presenting for suture removal. Denies complications. Exam: General: No acute distress Skin: Limited examination of right cheondoism shows a well-healed flap. There is no erythema, dehiscence, ecchymosis, or drainage. Assessment and Plan 1. Basal cell carcinoma, right cheondoism, s/p Mohs repaired by transposition flap repair [...] MD [facility] GASTROENTEROLOGY DEPT [place], [place] [address] (Wo rk) 09/05/2022 Appointment Cardiology Trinity Reid MD [facility] CARDIOLOGY [place], [place] [address] (Wo rk) 09/05/2022 Office Visit Cardiology Trinity Reid MD [facility] CARDIOLOGY [place], [place] [address] (Wo rk) documented as of this encounter Visit Diagnoses Diagnosis Visit for suture removal Encounter for removal of sutures documented in this encounter Care Teams Element Winding Machine Tender Relationship Specialty Start Date End Date Bobby Das MD PCP - General 10/02/[address] [place] [address] [place] [phone] documented as of this encounter
--- OUTSIDE RECORDS SUMMARY | 2022-07-22 10:28 | XMS_ITS | Encounter Summary ---
:1940 Author Organization [facility] [place] [address] Care Team Providers Name Role Phone Bobby Das MD Primary Care Provider Reason for Visit Reason Onset Date Comments Pre Procedure Call 08/01/2015 Encounter Details Date Type Department Care Team Description 08/01/2015 Telephone Dermatology at [facility] Cassy Jacobson, Pre Procedure Call [address] [place] [phone] Social History Tobacco Use Types Packs/Day [...] [facility] [address] GASTROENTEROLOGY DEPT [place], [place] [address] (Wo rk) 09/05/2022 Appointment Cardiology Trinity Reid MD [facility] CARDIOLOGY [place], [place] [address] (Wo rk) 09/05/2022 Office Visit Cardiology Trinity Reid MD [facility] ER CARDIOLOGY [place], [place] [address] (Wo rk) documented as of this encounter Visit Diagnoses Not on filedocumented in this encounter Care Teams Ethical Hacker Relationship Specialty Start Date End Date Bobby Das MD PCP - General 10/02/[address] [place] [address] [place] [phone] documented as of this encounter
--- OUTSIDE RECORDS SUMMARY | 2022-07-22 10:28 | XMS_ITS | Encounter Summary ---
:1940 Author Organization [facility] [place] [address] Care Team Providers Name Role Phone Bobby Das MD Primary Care Provider Encounter Details Date Type Department Care Team Description 07/25/2015 Hospital Encounter Laboratory Leo Solo, [facility] [place] [address]-DERMATOLOGY [place], [place] [address] (Wo rk) Social History Tobacco [...] MD [facility] GASTROENTEROLOGY DEPT [place], [place] [address] (Wo rk) 09/05/2022 Appointment Cardiology Trinity Reid MD [facility] CARDIOLOGY [place], [place] [address] (Wo rk) 09/05/2022 Office Visit Cardiology Trinity Reid MD [facility] ER CARDIOLOGY [place] [address] (Wo [...] [facility] Method Time Signature Surgical The signing pathologist has (i) examined the relevant preparation(s) for the [facility] Pathology specimen(s) and (ii) rendered or confirmed the diagnosis(e s). [facility] Report Accession Number: [id number] . ?Surgic al Pathology DIAGNOSIS CONSULTATION CASE Outside slides labeled [id number], collection date 07/03/2015 . Skin, right caodaism, excision: ?- ??BASAL CELL CARCINOMA, INFILTRATIVE TYPE [...] CONSULTATION CASE A - 3 slides labeled [id number], collection date 07/03/2015. [id number] Report to: [facility] Surgical Pathology Department [facility], [facility], 2nd Floor [address], [place] ??[address] SPECIMEN PROCESSING [facility] ([facility]) pathology slide(s) are reviewed. ??Refer to Diagnosis and Specimen Submitted for specific case infor arpan. For the full text of the [facility] ([facility]) report(s) please refer to Non-DH Documentati on Pathology in the electronic health record (eDH). Specimen (Source) Anatomical Collection Method Collection Time Re ceived Time Location / / Volume Laterality 07/25/2015 9:51 AM EDT Leo Solo MD PATHOLOGY/CYTOLOGY ORDERABLE S Performing Organization Address City/State/[place] [address] [facility] documented in this encounter Visit Diagnoses Not on filedocumented in this encounter Care Teams Cloud Automation Tester Relationship Specialty Start Date End Date Bobby Das MD PCP - General 10/02/[address] [place] [address] [place] [phone] documented as of this encounter
--- OUTSIDE RECORDS SUMMARY | 2022-07-22 10:28 | XMS_ITS | Encounter Summary ---
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, sequela Closed compression fracture of L1 lumbar vertebra with delayed healing, subsequent encounter Malignant neoplasm of prostate Zbigniew Thompson PA [facility] Interventionl Rad Procedures IR Vertebroplasty Lumbar Multiple Levels IR Vertebral Augmentation Lumbar Single Level [facility] [address] [place] [address] Fax: Referral ID Status Reason Start Date Expiration Date Visits V isits Requested Authorized [id number] Closed Specialty 07/13/2019 07/12/2020 1 1 Service Requested iagnostic Test (Routine) - Closed Specialty Diagnoses / Procedures Referred By Contact Refer red To Contact Radiology Diagnoses Closed compression fracture of L1 lumbar vertebra with delayed healing, subsequent encounter Malignant neoplasm of prostate Zbigniew Thompson PA [facility] Interventionl Rad Procedures [place] [address] [place] [address] Fax: Referral ID Status Reason Start Date Expiration Date Visits V isits Requested Authorized [id number] Closed Specialty 07/13/2019 07/12/2020 1 1 Service Requested Reason for Visit Diagnostic Test (Routine) - Closed Specialty Diagnoses / Procedures Referred By Contact Refer red To Contact Radiology Diagnoses 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, sequela Closed compression fracture of L1 lumbar vertebra with delayed healing, subsequent encounter Malignant neoplasm of prostate Zbigniew Thompson, PA [facility] Interventionl Rad Procedures IR Vertebroplasty Lumbar Multiple Levels IR Vertebral Augmentation Lumbar Single Level [facility] [place] [facility] [place] [address] [place] [address] Fax: Referral ID Status Reason Start Date Expiration Date Visits V isits Requested Authorized [id number] Closed Specialty 07/13/2019 07/12/2020 1 1 Service Requested Encounter Details Date Type Department Care Team Description 07/20/2019 Hospital Encounter Radiology at [facility] Elmer Loya, Closed compression fracture of L1 lumbar vertebra with delayed healing, subsequent encounter; [facility] Malignant neoplasm of prostate; Drive [facility] Age-related osteoporosis wit h current pathological fracture of vertebra, sequela [place], [place] CENTER [address] [facility] [phone] [place] [address] Social History Tobacco Use Types Packs/Day Years [...] Martínez RN - 07/20/2019 10:06 AM EDT [facility] Discharge Instructions for Vertebroplasty Your vertebroplasty [...] is during regular office hours, please call [phone]. If it is after regular office hours, oron weekends or holidays, please call [phone] and ask to speak to the Sugar Cane Planting Equipment Operator on callfor Interventional Radiology. XXX You [...] of : 1940 AGE: 78 y.o. Address: [address] [place] [address] [place] [phone] (home) Mobile: No relevant phone numbers on file. Referring Provider: Zbigniew Thompson REASON FOR VISIT: Order Questions Answers Where will study be performed? [facility] Radiology [120] Specify location Lumbar Reason [...] Collins MD [facility] GASTROENTEROLOGY DEPT [place], [place] [address] (Wo rk) 09/05/2022 Appointment Cardiology Trinity Reid MD [facility] CARDIOLOGY [place], [place] [address] (Wo rk) 09/05/2022 Office Visit Cardiology Trinity Reid MD [facility] CARDIOLOGY [place], [place] [address] (Wo rk) documented as of [...] and a 13g a introducer needle ([employer]) was advanced through the right pedicle and [...] an d a 13ga introducer needle ([employer]) was advanced through the left pedicle and [...] ? Electronically signed by: Bobby Sullivan MD, [facility] ([phone]), at 07/20/2019 1:20 PM Procedure Note Bobby [...] and a 13g a introducer needle ([employer]ak[employer]) was advanced through the right pedicle and [...] an d a 13ga introducer needle ([employer]) was advanced through the left pedicle and [...] For questions regarding this report, please contact [facility] number below. Elmer Loya MD IMG [...] and a 13g a introducer needle ([employer]) was advanced through the right pedicle and [...] an d a 13ga introducer needle ([employer]) was advanced through the left pedicle and [...] ? Electronically signed by: Bobby Sullivan MD, [facility] ([phone]), at 07/20/2019 1:20 PM Procedure Note Bobby [...] and a 13g a introducer needle ([employer]) was advanced through the right pedicle and [...] an d a 13ga introducer needle ([employer]ak[employer]) was advanced through the left pedicle and [...] below. Electronically signed by: Bobby Sullivan MD, [facility] ([phone]), at 07/20/2019 1:20 PM Elmer Loya MD IMG IR ORDERABLES Surgical Pathology Report (07/20/2019 10:45 AM EDT) Component Value Ref Test Analysis Performed At [facility] Method Time Signature Surgical [id number] ? [facility] The signing pathologist has (i) [...] Spence MD Verified: ??07/22/2019 ?Pathologist Performed at: ??-[facility] Dept. of Pathology, [place], [place] DISCUSSION Deeper levels into the biopsy [...] Organization Address City/State/[place] [address] Specimen to Pathology (07/20/2019 [...] Organization Address City/State/[place] [address] documented in this encounter [...] mg documented in this encounter Care Teams Molded Goods Spot Picker Relationship Specialty Start Date End Date Bobby Das MD PCP - General 10/02/[address] [place] [address] [place] [phone] documented as of this encounter
--- OUTSIDE RECORDS SUMMARY | 2022-07-22 10:28 | XMS_ITS | Encounter Summary ---
:1940 Author Organization [facility] [place] [address] Care Team Providers Name Role Phone Bobby Das MD Primary Care Provider Encounter Details Date Type Department Care Team Description 09/18/2018 Telephone Dermatology at [facility] Yolanda Fraser RN [address] [place] [address] Social History Tobacco Use Types Packs/Day [...] Who lives with patient (i.e. spouse, children, mcc/residential)? Spouse Relevant travel history or future plans: [...] MD [facility] GASTROENTEROLOGY DEPT [place], [place] [address] (Wo rk) 09/05/2022 Appointment Cardiology Trinity Reid MD [facility] CARDIOLOGY [place], [place] [address] (Wo rk) 09/05/2022 Office Visit Cardiology Trinity Reid MD [facility] CARDIOLOGY [place], [place] [address] (Wo rk) documented as of this encounter Visit Diagnoses Not on filedocumented in this encounter Care Teams Time Piece Repairer Relationship Specialty Start Date End Date Bobby Das MD PCP - General 10/02/[address] [place] [address] [place] [phone] documented as of this encounter
--- OUTSIDE RECORDS SUMMARY | 2022-07-22 10:28 | XMS_ITS | Encounter Summary ---
:1940 Author Organization [facility] [place] [address] Care Team Providers Name Role Phone Bobby Das MD Primary Care Provider Encounter Details Date Type Department Care Team Description 05/13/2018 Ancillary Procedure Radiology Library at Bobby Almaguer MD [facility] [address] [place] [phone] (Wo rk) Social History Tobacco Use Types Packs/Day Years Used Date Current Some Day Smoker 1 50 Smokeless Tobacco: Never Used Sex Assigned at Date Recorded Not on file documented as of this encounter Plan of Treatment Upcoming Encounters Date Type Specialty Care Team Description 08/08/2022 Office Visit Gastroenterology Negra Collins MD [facility] DR GASTROENTEROLOGY DEPT [place], [place] [address] (Wo rk) 09/05/2022 Appointment Cardiology Trinity Reid MD [facility] CARDIOLOGY [place], [place] [address] (Wo rk) 09/05/2022 Office Visit Cardiology Trinity Reid MD [facility] CARDIOLOGY [place], [place] [address] (Wo rk) documented as of [...] Organization Address City/State/ZIP Code Phon e Number [place], [place] documented in this encounter Visit Diagnoses Not on filedocumented in this encounter Care Teams Drop Wire Operator Relationship Specialty Start Date End Date Bobby Das MD PCP - General 10/02/[address] [place] [address] [place] [address] documented as of this encounter
--- OUTSIDE RECORDS SUMMARY | 2022-07-22 10:28 | XMS_ITS | Encounter Summary ---
:1940 Author Organization [facility] [place] [address] Care Team Providers Name Role Phone Bobby Das MD Primary Care Provider Reason for Referral Diagnostic Test (Routine) - Closed Specialty Diagnoses / Procedures Referred By Contact Refer red To Contact Radiology Diagnoses Compression fracture of T9 vertebra, initial encounter Alphonso Esquivel DO [facility] Interventionl Rad Procedures IR Vertebroplasty Thoracic [facility] [place] [address] [place] [address] Referral ID Status Reason Start Date Expiration Date Visits V isits Requested Authorized [id number] Closed Specialty 10/13/2020 04/13/2022 1 1 Service Requested Reason for Visit Diagnostic Test (Routine) - Closed Specialty Diagnoses / Procedures Referred By Contact Refer red To Contact Radiology Diagnoses Compression fracture of T9 vertebra, initial encounter Alphonso Esquivel DO [facility] Interventionl Rad Procedures IR Vertebroplasty Thoracic [facility] [place] [address] [place] [address] Referral ID Status Reason Start Date Expiration Date Visits V isits Requested Authorized [id number] Closed Specialty 10/13/2020 04/13/2022 1 1 Service Requested Encounter Details Date Type Department Care Team Description 10/25/2020 Hospital Encounter Radiology at [facility] Esquivel, Alphonso R, Compression fracture [facility] DO of T9 vertebra, Drive [facility] initial encounter [place], [place] CENTER [address] DIAGNOSTIC [phone] [place] [address] Social History Tobacco Use Types Packs/Day Years [...] Vargas RN - 10/25/2020 9:13 AM EST [facility] Discharge Instructions for Vertebroplasty Your [...] is during regular office hours, please call [phone]. If it is after regular office hours, oron weekends or holidays, please call [phone] and ask to speak to the Gas Leak Inspector Helper on callfor Interventional Radiology. XXX You [...] of : 1940 AGE: 80 y.o. Address: [address] [place] [phone] (home) Mobile: No relevant phone numbers on file. Referring Provider: Alphonso Esquivel REASON FOR VISIT: Order Questions Answers Where will study be performed? [facility] Radiology [120] Is the patient on [...] [facility] GASTROENTEROLOGY DEPT [place], [place] [address] (Wo rk) 09/05/2022 Appointment Cardiology Trinity Reid MD [facility] CARDIOLOGY [place], [place] [address] (Wo rk) 09/05/2022 Office Visit Cardiology Trinity Reid MD [facility] CARDIOLOGY [place], [place] [address] (Wo rk) documented as of [...] made and a 13g a introducer needle ([employer]) was advanced through the right pedicle and t o the ??T9 vertebral body during an intermittent fluoroscopic guidance. The [employer] biopsy cannula was advanced through the introducer [...] was made and a 13ga introducer needle ([employer]) was advanced through the left pedicle and [...] the interservice administration of fentanyl and Versed [facility] continuous monitoring of blood pressure, oxygenation and pulse rate. I have personally reviewed the image(s) and the resident's interpretation and agree with the findings, Matt Valverde at 10/25/2020 11:02 AM Thank you for letting us participate in the care of this patient. For questions regarding this report, please contact e number below. ? Electronically signed by: Matt Valverde [facility] ([phone]), at 10/25/2020 11:02 AM Procedure Note Matt [...] made and a 13g a introducer needle ([employer]) was advanced through the right pedicle and t o the T9 vertebral body during an intermittent fluoroscopic guidance. The [place] biopsy cannula was advanced through the introducer [...] was made and a 13ga introducer needle ([employer]) was advanced through the left pedicle and [...] number below. Electronically signed by: Matt Valverde [facility] ([phone]), at 10/25/2020 11:02 AM Alphonso Esquivel DO G IR ORDERABLES Surgical Pathology Report (10/25/2020 8:26 AM EST) Component Value Ref Test Analysis Performed At [facility] Method Time Signature Surgical [id number] ? Location: [address] [place] [address] Pathology [place] Report The signing pathologist has (i) examined [...] Bone & Soft Tissue Pathologist Performed at: ??-[facility] Dept. of Pathology, [place], [place] DISCUSSION I see no neoplastic process [...] DO PATHOLOGY/CYTOLOGY ORDERABLE S Performing Organization Address City/[facility]/[place] [address] Specimen to Pathology (10/25/2020 8:26 AM EST) Specimen Anatomical Collection Method Collection Time Receive d Time (Source) Location / / Volume Laterality AP Specimen 10/25/2020 8:26 AM 0 8:26 EST AM EST Narrative [facility] LAB[facility] - 10/25/2020 8:26 AM EST Specimen requisition ordered. ??Separate Pathology report to follow Alphonso Esquivel DO PATHOLOGY/CYTOLOGY ORDERABLE S Performing Organization Address City/[facility] Code Phon e Number [address] documented in this encounter [...] Procedure) documented in this encounter Care Teams Civil Engineer Relationship Specialty Start Date End Date Bobby Das MD PCP - General 10/02/[address] [place] [address] [place] [phone] documented as of this encounter
--- OUTSIDE RECORDS SUMMARY | 2022-07-22 10:28 | XMS_ITS | Encounter Summary ---
:1940 Author Organization [facility] [place] [address] Care Team Providers Name Role Phone Bobby Das MD Primary Care Provider Reason for Visit Reason Comments Basal Cell Carcinoma Encounter Details Date Type Department Care Team Description 08/08/2015 [facility] (basal cell Road MD carcinoma of skin) [address] [place] [address] [facility] [place] [place] [address] Social History Tobacco Use Types [...] Our facility does not offer a guest mCASH-Unides[employer] network at this time. We also recommend [...] specified we require that you have a armored truck driver, as surgery can be stressful and tiring. If you are being transported from a skilled nursing or other similar facility, we request that someone stay with you during this appointment. We are located in the [facility] at [place], [place]. Please refer to the [facility] website for detailed driving directions ([email or web address]). When you arrive, please park in the upper parking lot. When you enter the building, go to the third floor, the medical receptionist biller area is located on the left (follow [...] If this fails, contact our office at [phone] (after 5PM please call [phone] and ask for the Chain Carrier dehydrogenation converter operator). Avoid bending over, heavy lifting (no greater [...] are taking. Our office phone number is [phone]. documented in this encounter Progress Notes Leo Solo MD - 08/08/2015 1:50 PM EDT [facility] CONS[facility] Chief Complaint: Basal cell carcinoma History of Present Illness: Referring Physician: Dr. Zheng, [facility] (07/03/15) Tumor type: BCC Location of Skin Cancer: Right roman catholic Duration of Presence: 1 year Previous Treatment: [...] acute distress. Skin: Limited examination of right roman catholic reveals a 5 mm erythematous papule. Assessment and Plan 1. BCC, right roman catholic Reviewed treament options including wide local excision, [...] [facility] GASTROENTEROLOGY DEPT [place], [place] [address] (Wo rk) 09/05/2022 Appointment Cardiology Trinity Reid MD [facility] CARDIOLOGY [place], [place] [address] (Wo rk) 09/05/2022 Office Visit Cardiology Trinity Reid MD [facility] CARDIOLOGY [place], [place] [address] (Wo rk) documented as of this encounter Visit Diagnoses Diagnosis BCC (basal cell carcinoma of skin) Basal cell carcinoma of skin, site unspe cified documented in this encounter Care Teams Asphalt Heater Operator Relationship Specialty Start Date End Date Bobby Das MD PCP - General 10/02/[address] [place] [address] [place] [phone] documented as of this encounter
--- OUTSIDE RECORDS SUMMARY | 2022-07-22 10:28 | XMS_ITS | Encounter Summary ---
:1940 Author Organization [facility] Address [facility] [place] [address] Care Team Providers Name Role Phone Bobby Das MD Primary Care Provider Encounter Details Date Type Department Care Team Description 10/25/2020 Laboratory Appointment Lab at [facility] Compression fracture [facility] of T9 [place] [address] Social History Tobacco Use Types Packs/Day Years [...] Negra Collins MD [facility] DR GASTROENTEROLOGY DEPT [place], [place] [address] (Wo rk) 09/05/2022 Appointment Cardiology Trinity Reid MD [facility] CARDIOLOGY [place], [place] [address] (Wo rk) 09/05/2022 Office Visit Cardiology Trinity Reid MD [facility] CARDIOLOGY [place], [place] [address] (Wo rk) documented as of this encounter Procedures Procedure Name Priority Date/Time Associated Diagnosis Comme [facility] VENIPUN[facility]URE Routine 10/25/2020 6:35 AM Compression [...] athologist Signature Platelets 192 145 - 357 [facility] x10(3)/[facility] LABORATORY Plat Immature 2.6 0.0 - 7.4 [facility] % % [facility] LABORATORY Comment: Limitation of the Immature Platelet Frac tion (IPF)-May be less reliable when the platelet count is less than 02q646/u L due to statistical imprecision. The IPF [...] in a decreased state of production. References: [employer] The Clinical Value of the Immature Platelet Fraction (IPF) in Cell Recovery Document Number 10-1143 04/2011 [employer] The Role of the Imm ature [...] Organization Address City/State/[place] [address] Prothrombin Time (10/25/2020 6:35 AM EST) athologist Signature PT 10.8 9.4 - 12.5 [facility] LABORATORY INR 1.0 [facility] LABORATORY Comment: An INR <2.0 [...] City/State/ZIP Code Phon e Number [place] [phone] HOSPITAL LAB[address]ORY [address] documented in this encounter Visit Diagnoses Diagnosis Compression fracture of T9 vertebra, ini tial encounter documented in this encounter Care Teams Case Advocate Relationship Specialty Start Date End Date Bobby Das MD PCP - General 10/02/[address] [place] [address] [place] [phone] documented as of this encounter
--- OUTSIDE RECORDS SUMMARY | 2022-07-22 10:28 | XMS_ITS | Encounter Summary ---
:1940 [place] [address] Care Team Providers Name Role Phone Bobby Das MD Primary Care Provider Encounter Details Date Type Department Care Team Description 10/13/2020 Notes Only Radiology at [facility] Alphonso Esquivel [facility] [place] [address] DIAGNOSTIC RADIOLOGY [phone] [place] [id number] (Wo rk) Social History Tobacco Use Types [...] MD [facility] GASTROENTEROLOGY DEPT [place], [place] [address] (Wo rk) 09/05/2022 Appointment Cardiology Trinity Reid MD [facility] CARDIOLOGY [place], [place] [address] (Wo rk) 09/05/2022 Office Visit Cardiology Trinity Reid MD [facility] CARDIOLOGY [place], [place] [address] (Wo rk) documented as of this encounter Visit Diagnoses Not on filedocumented in this encounter Care Teams Hydrodynamicist Relationship Specialty Start Date End Date Bobby Das MD PCP - General 10/02/[address] [place] [address] [place] [phone] documented as of this encounter
--- OUTSIDE RECORDS SUMMARY | 2022-07-22 10:28 | XMS_ITS | Encounter Summary ---
:1940 Author Organization [facility] [place] [address] Care Team Providers Name Role Phone Bobby Das MD Primary Care Provider Encounter Details Date Type Department Care Team Description 09/22/2020 Telephone Pain and Spine Leon reid at [facility] [place] [address] Social History Tobacco Use Types Packs/Day [...] MD [facility] GASTROENTEROLOGY DEPT [place], [place] [address] (Wo rk) 09/05/2022 Appointment Cardiology Trinity Reid MD [facility] ER CARDIOLOGY [place], [place] [address] (Wo rk) 09/05/2022 Office Visit Cardiology Trinity Reid MD [facility] ER CARDIOLOGY [place], [place] [address] (Wo rk) documented as of this encounter Visit Diagnoses Not on filedocumented in this encounter Care Teams Pay Clerk Relationship Specialty Start Date End Date Bobby Das MD PCP - General 10/02/[address] [place] [address] [place] [address] documented as of this encounter
--- OUTSIDE RECORDS SUMMARY | 2022-07-22 10:28 | XMS_ITS | Encounter Summary ---
:1940 Author Organization [facility] [place] [address] Care Team Providers Name Role Phone Bobby Das MD Primary Care Provider Encounter Details Date Type Department Care Team Description 06/16/2019 Ancillary Procedure Radiology Library at Bobby Almaguer MD [facility] [address] [place] [phone] (Wo rk) Social History Tobacco Use Types Packs/Day Years Used Date Current Some Day Smoker 1 50 Smokeless Tobacco: Never Used Sex Assigned at Date Recorded Not on file documented as of this encounter Plan of Treatment Upcoming Encounters Date Type Specialty Care Team Description 08/08/2022 Office Visit Gastroenterology Negra Collins MD [facility] DR GASTROENTEROLOGY DEPT [place], [place] [address] (Wo rk) 09/05/2022 Appointment Cardiology Trinity Reid MD [facility] CARDIOLOGY [place], [place] [address] (Wo rk) 09/05/2022 Office Visit Cardiology Trinity Reid MD [facility] CARDIOLOGY [place], [place] [address] (Wo rk) documented as of [...] Organization Address City/State/ZIP Code Phon e Number [place], [place] documented in this encounter Visit Diagnoses Not on filedocumented in this encounter Care Teams Sharepoint Application Developer Relationship Specialty Start Date End Date Bobby Das MD PCP - General 10/02/[address] [place] [address] [place] [address] documented as of this encounter
--- OUTSIDE RECORDS SUMMARY | 2022-07-22 10:28 | XMS_ITS | Encounter Summary ---
:1940 Author Organization [facility] [place] [address] Care Team Providers Name Role Phone Bobby Das MD Primary Care Provider Encounter Details Date Type Department Care Team Description 09/06/2020 Ancillary Procedure Radiology at [facility] Amy Grimaldo [address] [place] [address] 10 LITT[address] JAY [phone] NEUROSURGERY-N Jovanny [place], [place] [address] Social History Tobacco Use Types [...] Collins MD [facility] GASTROENTEROLOGY DEPT [place], [place] [address] (Wo rk) 09/05/2022 Appointment Cardiology Trinity Reid MD [facility] CARDIOLOGY [place], [place] [address] (Wo rk) 09/05/2022 Office Visit Cardiology Trinity Reid MD [facility] CARDIOLOGY [place], [place] [address] (Wo rk) documented as of [...] Organization Address City/State/ZIP Code Phon e Number [employer], [place] documented in this encounter Visit Diagnoses Not on filedocumented in this encounter Care Teams Labor And Delivery Registered Nurse Relationship Specialty Start Date End Date Bobby Das MD PCP - General 10/02/[address] [place] [address] [place] [phone] documented as of this encounter
--- OUTSIDE RECORDS SUMMARY | 2022-07-22 10:28 | XMS_ITS | Encounter Summary ---
:1940 Author Organization [facility] [place] [address] Care Team Providers Name Role Phone Bobby Das MD Primary Care Provider Encounter Details Date Type Department Care Team Description 12/13/2016 Telephone Pain Management [place] [address] Social History Tobacco Use Types Packs/Day [...] [facility] DR GASTROENTEROLOGY DEPT [place], [place] [address] (Wo rk) 09/05/2022 Appointment Cardiology Trinity Reid MD [facility] CARDIOLOGY [place], [place] [address] (Wo rk) 09/05/2022 Office Visit Cardiology Trinity Reid MD [facility] CARDIOLOGY [place], [place] [address] (Wo rk) documented as of this encounter Visit Diagnoses Not on filedocumented in this encounter Care Teams Clinical Research Physician Relationship Specialty Start Date End Date Bobby Das MD PCP - General 10/02/[address] [place] [address] [place] [phone] documented as of this encounter
--- OUTSIDE RECORDS SUMMARY | 2022-07-22 10:28 | XMS_ITS | Encounter Summary ---
:1940 Author Organization [facility] [place] [address] Care Team Providers Name Role Phone Bobby Das MD Primary Care Provider Reason for Referral Diagnostic Test (Routine) - Closed Specialty Diagnoses / Procedures Referred By Contact Refer red To Contact Radiology Diagnoses Compression fracture of T9 vertebra, initial encounter Alphonso Esquivel, DO [facility] Interventionl Rad Procedures IR Vertebroplasty Thoracic Single Level [facility] [place]NOST[place] [address] [place] [address] Referral ID Status Reason Start Date Expiration Date Visits V isits Requested Authorized [id number] Closed Specialty 10/13/2020 04/13/2022 1 1 Service Requested Encounter Details Date Type Department Care Team Description 10/13/2020 Orders Only Radiology at [facility] Alphonso Esquivel, Compression fracture [facility] DO of T9 vertebra, Drive [facility] [place] [address] DIAGNOSTIC RADIOLOGY [place], [place] [address] Social History Tobacco Use Types [...] [facility] GA[facility] DEPT [place], [place] [address] (Wo rk) 09/05/2022 Appointment Cardiology Trinity Reid MD [facility] CARDIOLOGY [place], [place] [address] (Wo rk) 09/05/2022 Office Visit Cardiology Trinity Reid MD [facility] CARDIOLOGY [place], [place] 0[address] (Wo rk) documented as of [...] made and a 13g a introducer needle ([employer]) was advanced through the right pedicle and t o the ??T9 vertebral body during an intermittent fluoroscopic guidance. The [employer] biopsy cannula was advanced through the introducer [...] was made and a 13ga introducer needle ([employer]) was advanced through the left pedicle and [...] made and a 13g a introducer needle ([employer]) was advanced through the right pedicle and t o the T9 vertebral body during an intermittent fluoroscopic guidance. The [employer] biopsy cannula was advanced through the introducer [...] was made and a 13ga introducer needle ([employer]) was advanced through the left pedicle and [...] 12.5 [facility] LABORATORY INR 1.0 [facility] LABORATORY [...] Organization Address City/State/[place] [address] Platelet count (10/25/2020 6:35 AM EST) athologist Signature Platelets 192 145 - 357 [facility] x10(3)/[facility] LABORATORY Plat Immature 2.6 0.0 - 7.4 [facility] % % [facility] LABORATORY Comment: Limitation of the Immature Platelet Frac tion (IPF)-May be less reliable when the platelet count is less than 80w160/u L due to statistical imprecision. The IPF [...] in a decreased state of production. References: [employer] The Clinical Value of the Immature Platelet Fraction (IPF) in Cell Recovery Document Number 10-1143 04/2011 [employer] The Role of the Imm ature [...] Organization Address City/State/[place] [address] documented in this encounter Visit Diagnoses Diagnosis Compression fracture of T9 vertebra, ini tial encounter Compression fracture of T9 vertebra, ini tial encounter documented in this encounter Care Teams Physical Therapist Technician Relationship Specialty Start Date End Date Bobby Das MD PCP - General 10/02/[address] [place] [address] [place] [phone] documented as of this encounter
--- OUTSIDE RECORDS SUMMARY | 2022-07-22 10:28 | XMS_ITS | Encounter Summary ---
:1940 Author Organization [facility] [place] [address] Care Team Providers Name Role Phone Bobby Das MD Primary Care Provider Encounter Details Date Type Department Care Team Description 08/06/2020 Ancillary Procedure Radiology at [facility] Amy Grimaldo [address] [place] [address] 10 LITTLE JAY [phone] NEUROSURGERY-N Jovanny [place], [place] [address] Social History Tobacco Use Types [...] MD [facility] GASTROENTEROLOGY DEPT [place], [place] [address] (Wo rk) 09/05/2022 Appointment Cardiology Trinity Reid MD [facility] CARDIOLOGY [place], [place] [address] (Wo rk) 09/05/2022 Office Visit Cardiology Trinity Reid MD [facility] CARDIOLOGY [place], [place] 0[address] (Wo rk) documented as of [...] Organization Address City/State/ZIP Code Phon e Number [place], [place] documented in this encounter Visit Diagnoses Not on filedocumented in this encounter Care Teams Cake Icer And Packer Relationship Specialty Start Date End Date Bobby Das MD PCP - General 10/02/[address] [place] [address] [place] [phone] documented as of this encounter
--- OUTSIDE RECORDS SUMMARY | 2022-07-22 10:28 | XMS_ITS | Encounter Summary ---
:1940 [place] [address] Care Team Providers Name Role Phone Bobby Das MD Primary Care Provider Reason for Visit Reason Comments Wound Check Encounter Details Date Type Department Care Team Description 10/25/2015 Clinical Support Dermatology at Christine Gonzalez MD Follow up [facility] [address] [facility] [place] [address] [place] [address] [phone] (Wo rk) Social History Tobacco Use Types Packs/Day Years Used Date Current Some Day Smoker 1 50 Smokeless Tobacco: Never Used Sex Assigned at Date Recorded Not on file documented as of this encounter Progress Notes Leo Solo MD - 10/25/2015 1:01 PM EST CC: Wound check HPI: Patient is a 75 y.o. male with history of basal cell carcinoma, right uatsdin, s/p Mohs, repaired by transposition flap on who presents for wound check. Denies complications. States when he blinks he can feel the scar tissue. ROS: Otherwise well. No other skin complaints. Exam: General: No acute distress Skin: Limited examination of right uatsdin shows a well-healed flap with hypertrophy at the edge. Assessment and Plan 1. Basal cell carcinoma, right uatsdin, s/p Mohs, repaired by transposition flap Kenalog [...] MD [facility] DR GASTROENTEROLOGY DEPT [place], [place] [address] (Wo rk) 09/05/2022 Appointment Cardiology Trinity Reid MD [facility] CARDIOLOGY [place], [place] [address] (Wo rk) 09/05/2022 Office Visit Cardiology Trinity Reid MD [facility] CARDIOLOGY [place], [place] [address] (Wo rk) documented as of this encounter Visit Diagnoses Diagnosis Follow up documented in this encounter Care Teams Instructional Developer Relationship Specialty Start Date End Date Bobby Das MD PCP - General 10/02/[address] [place] [address] [place] [phone] documented as of this encounter
--- OUTSIDE RECORDS SUMMARY | 2022-07-22 10:28 | XMS_ITS | Encounter Summary ---
:1940 Author Organization [facility] Address [facility] [place] [address] Care Team Providers Name Role Phone Bobby Das MD Primary Care Provider Reason for Visit - Closed Specialty Diagnoses / Procedures Referred By Contact Refer red To Contact Procedures Bobby Das MD Film Library- Storage Only DX [address] [place] [phone] Referral ID Status Reason Start Date Expiration Date Visits Requ ested Visits Authorized [id number] Closed 04/13/2021 04/13/2022 1 1 Encounter Details Date Type Department Care Team Description 01/31/2021 Ancillary Procedure Radiology Library at Bobby Almaguer MD [address] [phone] [phone] (Rebekah rojas) Social History Tobacco Use Types [...] 08/08/2022 Office Visit Gastroenterology Negra Collins MD [facility] DR GASTROENTEROLOGY DEPT [place], [place] [address] (Wo rk) 09/05/2022 Appointment Cardiology Trinity Reid MD [facility] CARDIOLOGY [place] [address] (Wo rk) 09/05/2022 Office Visit Cardiology Trinity Reid MD [facility] ER CARDIOLOGY [place] 0[address] (Wo rk) documented as of this [...] Organization Address City/State/ZIP Code Phon e Number [place], [place] documented in this encounter Visit Diagnoses Not on filedocumented in this encounter Care Teams Cattle Alley Worker Relationship Specialty Start Date End Date Bobby Das MD PCP - General 10/02/[address] [place] [address] [place] [phone] documented as of this encounter
--- OUTSIDE RECORDS SUMMARY | 2022-07-22 10:28 | XMS_ITS | Encounter Summary ---
:1940 [place] [address] Care Team Providers Name Role Phone Bobby Das MD Primary Care Provider Encounter Details Date Type Department Care Team Description 02/27/2021 Notes Only Radiology Matt Chisholm MD [facility] [place] [address] DIAGNOSTIC RADIOLOGY [phone] [place] [address] (Wo rk) Social History Tobacco Use Types [...] [facility] DR GASTROENTEROLOGY DEPT [place], [place] [address] (Wo rk) 09/05/2022 Appointment Cardiology Trinity Reid MD [facility] CARDIOLOGY [place], [place] [address] (Wo rk) 09/05/2022 Office Visit Cardiology Trinity Reid MD [facility] CARDIOLOGY [place], [place] [address] (Wo rk) documented as of this encounter Visit Diagnoses Not on filedocumented in this encounter Care Teams Gasoline Engine Inspector Relationship Specialty Start Date End Date Bobby Das MD PCP - General 10/02/[address] [place] [address] [place] [address] documented as of this encounter
--- OUTSIDE RECORDS SUMMARY | 2022-07-22 10:28 | XMS_ITS | Encounter Summary ---
:1940 Author Organization [place] [address] Care Team Providers Name Role Phone Bobby Das MD Primary Care Provider Reason for Visit Reason Comments Basal Cell Carcinoma Encounter Details Date Type Department Care Team Description 08/24/2015 Procedure visit Dermatology at [facility] Leo Solo BCC (basal cell Road MD Delores carcinoma of skin) [address] [facility] [address] [facility] [phone] [address] [address] Social History Tobacco Use Types Packs/Day Years [...] when the wound is well cared for. [place] drainage or slight yellow film on your [...] the hospital number and ask for the Sales Support Advisor it consulting manager. Wound Care for Sutured Wounds You should [...] any questions, please call our clinic at [phone]. After 5PM and on weekends, please call the hospital number and ask for the Sales Support Advisor it consulting manager. documented in this encounter Progress Notes Leo Solo MD - 08/24/2015 3:25 PM EDT Operative Report Patient name: Koko Zamora : 1940 Date: 08/24/2015 Staff Surgeon: Leo Solo MD, PhD Medical Leader I: Cassy Jacobson, Yolanda Verdin, Etta Burciaga, Gloria Culver MD Analytical Research Program Manager: Kourtney Cabrera Pre-operative diagnosis: Basal cell carcinoma Post-operative diagnosis: Basal cell carcinoma Location: Right latter day Procedure: Mohs micrographic surgery Indication for Mohs micrographic surgery: Critical anatomic location Stages: 2 Final defect size: 3.6 x 2.0 cm Stage I The nature and purpose of the procedure, associated risks, possible consequences and complications,and alternative forms of treatment were explained in detail. Informed consent and permission to takephotographs were obtained. The site was confirmed with the patient/authorized account development representative/referring physician and a pre-operative time-out was [...] 08/24/2015 Staff Surgeon: Leo Solo MD, PhD Medical Leader I: Yolanda Rivera, Estefania Welch Clinical Diagnosis: 3.6 x 2.0 cm surgical defect secondary to Mohs microscopically controlled excision of basal cell carcinoma Location: Right latter day Procedure: Transposition flap repair Due to the [...] MD [facility] GASTROENTEROLOGY DEPT [place], [place] [address] ([facility]) 09/05/2022 Appointment Cardiology Trinity Reid MD [facility] CARDIOLOGY [place], [place] [address] ([facility]) 09/05/2022 Office Visit Cardiology Trinity Reid MD [facility] CARDIOLOGY [place], [place] [address] ([facility]) documented as of this encounter Visit Diagnoses Diagnosis BCC (basal cell carcinoma of skin) Basal cell carcinoma of skin, site unspe cified documented in this encounter Care Teams Television Production Assistant Relationship Specialty Start Date End Date Bobby Das MD PCP - General 10/02/[address] [place] [address] [place] [phone] documented as of this encounter
--- OUTSIDE RECORDS SUMMARY | 2022-07-22 10:28 | XMS_ITS | Encounter Summary ---
:1940 Author Organization [facility] [place] [address] Care Team Providers Name Role Phone Bobby Das MD Primary Care Provider Encounter Details Date Type Department Care Team Description 12/20/2016 Telephone Pain Management at [facility] Kristin Schultz, RN [facility] [place] [address] Social History Tobacco Use Types Packs/Day [...] MD [facility] GASTROENTEROLOGY DEPT [place], [place] [address] (Wo rk) 09/05/2022 Appointment Cardiology Trinity Reid MD [facility] CARDIOLOGY [place], [place] [address] (Wo rk) 09/05/2022 Office Visit Cardiology Trinity Reid MD [facility] CARDIOLOGY [place], [place] [address] (Wo rk) documented as of this encounter Visit Diagnoses Not on filedocumented in this encounter Care Teams Parachute Packer Relationship Specialty Start Date End Date Bobby Das MD PCP - General 10/02/[address] [place] [address] [place] [address] documented as of this encounter
--- OUTSIDE RECORDS SUMMARY | 2022-07-22 10:28 | XMS_ITS | Encounter Summary ---
:1940 Author Organization [facility] [place] [address] Care Team Providers Name Role Phone Bobby Das MD Primary Care Provider Encounter Details Date Type Department Care Team Description 12/16/2016 [facility] [place] [address] Social History Tobacco Use Types Packs/Day [...] MD [facility] GASTROENTEROLOGY DEPT [place], [place] [address] (Wo rk) 09/05/2022 Appointment Cardiology Trinity Reid MD [facility] CARDIOLOGY [place], [place] [address] (Wo rk) 09/05/2022 Office Visit Cardiology Trinity Reid MD [facility] CARDIOLOGY [place], [place] [address] (Wo rk) documented as of this encounter Visit Diagnoses Not on filedocumented in this encounter Care Teams Direct Marketing Coordinator Relationship Specialty Start Date End Date Bobby Das MD PCP - General 10/02/[address] [place] [address] [place] [phone] documented as of this encounter
--- OUTSIDE RECORDS SUMMARY | 2022-07-22 10:28 | XMS_ITS | Encounter Summary ---
:1940 [place] [address] Care Team Providers Name Role Phone Bobby Das MD Primary Care Provider Encounter Details Date Type Department Care Team Description 07/13/2019 Orders Only Radiology Alan Brink Gastrointestinal [facility] MD Rosa hemorrhage, unspecified [facility] DR hemorrhage type (Primary [phone] RADIOLOGY DEPT Dx) [phone] [place], [place] [address] Social History Tobacco Use Types [...] file Gets together: Not on file Attends episcopalian service: Not on file Active member of [...] MD [facility] GASTROENTEROLOGY DEPT [place], [place] [address] (Wo rk) 09/05/2022 Appointment Cardiology Trinity Reid MD [facility] CARDIOLOGY [place], [place] [address] (Wo rk) 09/05/2022 Office Visit Cardiology Trinity Reid MD [facility] CARDIOLOGY [place], [place] [address] (Wo rk) documented as of this encounter Results Prothrombin Time (07/20/2019 8:18 AM EDT) P athologist Signature PT 11.3 9.4 - 12.5 [facility] INR 1.0 [facility] [...] Organization Address City/State/[place] [address] (ABNORMAL) Hemogram (07/20/2019 8:18 AM EDT) Analysis Performed At Patho logist Time Signature WBC 6.0 4.0 - 9.5 [facility] x10(3)/[facility] LABORATORY RBC 4.50 (L) 4.58 - [facility] 5.54 [facility] x10(6)/[facility] LABORATORY Hemoglobin 14.8 13.7 - [facility] 16.5 gm/dL [facility] LABORATORY Hematocrit 43.9 40.5 - [facility] 48.5 % [facility] LABORATORY MCV 97.6 (H) 82.9 - [facility] 93.1 fL [facility] LABORATORY MCH 32.9 (H) 27.5 - [facility] 32.1 pg [facility] LABORATORY MCHC 33.7 32.0 - [facility] 35.7 gm/dL [facility] LABORATORY Platelets 164 145 - 357 [facility] x10(3)/[facility] LABORATORY RDWSD 49.3 (H) 36.0 - [facility] 45.0 [facility] LABORATORY RDWCV 13.6 11.4 - [facility] 13.8 % [facility] LABORATORY MPV 10.0 7.6 - 12.9 [facility] LABORATORY nRBC % Auto 0.0 % [facility] LABORATORY nRBC Abs Auto 0.000 0.000 - [facility] 0.000 [facility] x10(3)/[facility] LABORATORY Specimen Anatomical Collection Method Collection Time Receive d Time (Source) Location / / Volume Laterality Blood specimen 07/20/2019 8:18 AM 019 8:21 (specimen) EDT AM EDT Resulting Agency Comment Spec In Lab Bobby Marshall MD HEMATOLOGY ORDERABLES Performing Organization Address City/State/[place] [address] documented in this encounter Visit Diagnoses Diagnosis Gastrointestinal hemorrhage, unspecified gastrointestinal hemorrhage type - Primary documented in this encounter Care Teams Business And Marketing Teacher Relationship Specialty Start Date End Date Bobby Das MD PCP - General 10/02/[address] [place] [address] [place] [phone] documented as of this encounter
--- OUTSIDE RECORDS SUMMARY | 2022-07-22 10:28 | XMS_ITS | Encounter Summary ---
:1940 Author Organization [facility] [place] [address] Care Team Providers Name Role Phone Bobby Das MD Primary Care Provider Reason for Visit Reason Comments Follow-up Encounter Details Date Type Department Care Team Description 05/31/2014 [facility] of basal cell Nba CARCAMO carcinoma (Primary [address] Dx) [facility] B DERMATOLOGY [place], [place] [phone] [phone] Social History Tobacco Use Types Packs/Day Years Used Date Current Some Day Smoker 1 50 Smokeless Tobacco: Never Used Sex Assigned at Date Recorded Not on file documented as of this encounter Patient Instructions Patient InstructionsSupriya Louis LPN - 05/31/2014 1:34 PM EDT Images from the original note were not included. [facility] Actinic Keratosis: After Your Visit Your Care [...] more? Visit our health information library at [email or web address] You can also view health information on [employer], your personal patient account. Log in or sign up today. Enter L364 in the search box to learn more about Actinic Keratosis: After Your Visit. ?? [id number] Luristic. Care instructions adapted under license by [facility]. This care instruction is for use with your licensed healthcare professional. If you have questionsabout a medical condition or this instruction, always ask your healthcare professional. [employer]uristic disclaims any warranty or liability for your use of this information. Content Version: 9.9.775235; Last Revised: December 22, 2012 documented in this encounter Progress Notes Hammer, Cy J, MD - 05/31/2014 2:08 PM EDT Problem: Follow up for repeat skin checkup. Shadi follows up after last being seen in March. At that time, I removed using shave C and D a BCCA from the right lateral canthus and a BCCA from the right lateral pentecostal. I also treated a verruca vulgaris on [...] Negra Collins MD [facility] GASTROENTEROLOGY DEPT [place], [place] [address] (Wo rk) 09/05/2022 Appointment Cardiology Trinity Reid MD [facility] [address] [place], [place] [address] (Wo rk) 09/05/2022 Office Visit Cardiology Trinity Reid MD [facility] [address] [place], [place] [address] (Rebekah rojas) documented as of this encounter Visit Diagnoses Diagnosis History of basal cell carcinoma - Primar y Personal history of other malignant neop lasm of skin documented in this encounter Care Teams Instructor Psychiatric Aide Relationship Specialty Start Date End Date Bobby Das MD PCP - General 10/02/[address] [place] [address] [place] [address] documented as of this encounter
--- OUTSIDE RECORDS SUMMARY | 2022-07-22 10:28 | XMS_ITS | Encounter Summary ---
:1940 Author Organization [facility] [place] [address] Care Team Providers Name Role Phone Bobby Das MD Primary Care Provider Reason for Referral Diagnostic Test (Routine) - Closed Specialty Diagnoses / Procedures Referred By Contact Refer red To Contact Radiology Diagnoses 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, sequela Closed compression fracture of L1 lumbar vertebra with delayed healing, subsequent encounter Malignant neoplasm of prostate Zbigniew Thompson PA [facility] Interventionl Rad Procedures IR Vertebroplasty Lumbar Multiple Levels IR Vertebral Augmentation Lumbar Single Level [facility] [address] [place] [address] Fax: Referral ID Status Reason Start Date Expiration Date Visits V isits Requested Authorized [id number] Closed Specialty 07/13/2019 07/12/2020 1 1 Service Requested iagnostic Test (Routine) - Closed Specialty Diagnoses / Procedures Referred By Contact Refer red To Contact Radiology Diagnoses Closed compression fracture of L1 lumbar vertebra with delayed healing, subsequent encounter Malignant neoplasm of prostate Zbigniew Thompson PA [facility] Interventionl Rad Procedures [place] [address] [place] [address] Fax: Referral ID Status Reason Start Date Expiration Date Visits V isits Requested Authorized [id number] Closed Specialty 07/13/2019 07/12/2020 1 1 Service Requested Reason for Visit Reason Comments Back Pain Consultation (ANDREINA) - Closed Specialty Diagnoses / Procedures Referred By Contact Refer red To Contact [facility] Diagnoses Collapsed vertebra, not elsewhere classified, lumbar region, subsequent encounter for fracture with routine healing Bobby Das MD [facility] [address] [place], [place] Drive [address] [place] [address] Phone: Fax: Referral ID Status Reason Start Date Expiration Date Visits V isits Requested Authorized [id number] Closed Consult, 06/30/2019 06/29/2020 1 1 [facility] Encounter Details Date Type Department Care Team Description 07/13/2019 Office Visit [facility] Zbigniew Thompson, Closed compression fracture of L1 lumbar vertebra with delayed healing, subsequent encounter; at [facility] Malignant neoplasm of prostate; [facility] Age -related 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, sequela [address] [place] [address] [phone] Social History Tobacco Use Types Packs/Day Years [...] Negra Collins MD [facility] DR GASTROENTEROLOGY DEPT [place], [place] [address] (Wo rk) 09/05/2022 Appointment Cardiology Trinity Reid MD [facility] CARDIOLOGY [place], [place] [address] (Wo rk) 09/05/2022 Office Visit Cardiology Trinity Reid MD [facility] CARDIOLOGY [place], [place] [address] (Wo rk) [...] made and a 13g a introducer needle (Webydo.) was advanced through the right pedicle and [...] made an d a 13ga introducer needle (Webydo.) was advanced through the left pedicle and [...] ? Electronically signed by: Bobby Sullivan MD, [facility] ([phone]), at 07/20/2019 1:20 PM Procedure Note Bobby [...] made and a 13g a introducer needle (Webydo.) was advanced through the right pedicle and [...] made an d a 13ga introducer needle (Webydo.) was advanced through the left pedicle and [...] made and a 13g a introducer needle (Webydo.) was advanced through the right pedicle and [...] made an d a 13ga introducer needle (Webydo.) was advanced through the left pedicle and [...] ? Electronically signed by: Bobby Sullivan MD, [facility] ([phone]), at 07/20/2019 1:20 PM Procedure Note Bobby [...] made and a 13g a introducer needle (Webydo.) was advanced through the right pedicle and [...] made an d a 13ga introducer needle (Webydo.) was advanced through the left pedicle and [...] below. Electronically signed by: Bobby Sullivan MD, [facility] ([phone]), at 07/20/2019 1:20 PM Elmer Loya MD [...] sequela documented in this encounter Care Teams Contract Modeler Relationship Specialty Start Date End Date Bobby Das MD PCP - General 10/02/[address] [place] [address] [place] [phone] documented as of this encounter
--- OUTSIDE RECORDS SUMMARY | 2022-07-22 10:28 | XMS_ITS | Encounter Summary ---
:1940 Author Organization [facility] [place] [address] Care Team Providers Name Role Phone Bobby Das MD Primary Care Provider Encounter Details Date Type Department Care Team Description 08/28/2020 Ancillary Procedure Radiology at [facility] Amy Grimaldo [address] [place] [address] [address] [phone] NEUROSURGERY-N [place], [place] [address] Social History Tobacco Use Types [...] MD [facility] GASTROENTEROLOGY DEPT [place], [place] [address] (Wo rk) 09/05/2022 Appointment Cardiology Trinity Reid MD [facility] CARDIOLOGY [place], [place] [address] (Wo rk) 09/05/2022 Office Visit Cardiology Trinity Reid MD [facility] CARDIOLOGY [place], [place] [address] (Wo rk) documented as of [...] Organization Address City/State/ZIP Code Phon e Number [place], [place] documented in this encounter Visit Diagnoses Not on filedocumented in this encounter Care Teams Clinical Administrator Relationship Specialty Start Date End Date Bobby Das MD PCP - General 10/02/[address] [place] [address] [place] [address] documented as of this encounter
--- OUTSIDE RECORDS SUMMARY | 2022-07-22 10:29 | XMS_ITS | Encounter Summary ---
:1940 Author Organization [facility] Address [facility] [address] [address] [place] [address] Care Team Providers Name Role Phone Bobby Das MD Primary Care Provider Reason for Visit Reason Comments Shortness of Breath Encounter Details Date Type Department Care Team Description 06/28/2011 Office Visit Cardiology at [facility] Chet Nicole SOB (shortness of breath) (P rimary Dx); [facility] GIB (gastrointestinal bleeding); Drive [facility] MVP (mitral valve prolapse) [place] [address] CARDIOLOGY DEPT. [phone] [place], [place] [address] Social History Tobacco Use Types [...] Giordano MD - 06/28/2011 4:15 PM EDT [facility] Cholesterol and Triglycerides Tests: About These [...] 60 mg/dl is considered ideal. ?? Total pzqiydccntc-qg-SQJ ratio: A ratio of 5:1 or lower is recommended. ?? LDL cholesterol: Between 100-129 mg/dL is recommended. Lower than 100 mg/dL is considered ideal. ?? VLDL cholesterol: 30 mg/dL or less is recommended. ?? Triglycerides: Lower than 150 mg/dL is recommended. Where can you learn more? Visit our health information library at [email or web address]. You can also view health information on [employer], your personal patient account. Log in or sign up today. Enter V788 in the search box to learn more about Cholesterol and Triglycerides Tests: About These Tests. ?? [id number] Kandu. Care instructions adapted under license by [facility]. This care instruction is for use with your licensed healthcare professional. If you have questionsabout a medical condition or this instruction, always ask your healthcare professional. Kandu disclaims any warranty or liability for your [...] valve prolapse) s/p repair Surgery done at [facility] in 2000 ??? Hypertriglyceridemia ??? Adhesive capsulitis of L shoulder ??? Alcohol use Medications: Paisley-3 Fatty Acids-Vitamin E (FISH OIL) 1,000 mg [...] MD [facility] GASTROENTEROLOGY DEPT [place], [place] [address] (Wo rk) 09/05/2022 Appointment Cardiology Trinity Reid MD [facility] CARDIOLOGY [place], [place] [address] (Wo rk) 09/05/2022 Office Visit Cardiology Trinity Reid MD [facility] CARDIOLOGY [place], [place] [address] (Wo rk) documented as of this encounter Procedures Procedure Name Priority Date/Time Associated Diagnosis Comme nts EKG 12-LEAD Routine 06/28/2011 2:59 PM SOB (shortness of Resu lts for this EDT breath) procedure are i n the results section . documented in this encounter Results EKG 12 Lead (06/28/2011 2:59 PM EDT) [facility] gist Method Time Signature Ventricular rate 70 BPM MUSE SYSTEM Atrial Rate 70 BPM MUSE SYSTEM P-R Interval 182 ms MUSE SYSTEM QRS Duration 106 ms MUSE SYSTEM Q-T Interval 406 ms MUSE SYSTEM QTC Calculated 438 ms MUSE SYSTEM (Bezet) Calculated P [place] 60 degrees MUSE SYSTEM Calculated R [place] -51 degrees MUSE SYSTEM Calculated T [place] 32 degrees MUSE SYSTEM INTERPRETATION Normal sinus [...] disorders documented in this encounter Care Teams Product Development Worker Relationship Specialty Start Date End Date Bobby Das MD PCP - General 10/02/[address] [place] [address] [place] [phone] documented as of this encounter
--- OUTSIDE RECORDS SUMMARY | 2022-07-22 10:29 | XMS_ITS | Encounter Summary ---
:1940 Author Organization [facility] Address [facility] [address] [place] [address] Care Team Providers Name Role Phone Bobby Das MD Primary Care Provider Reason for Visit Reason Onset Date Comments Other 07/19/2011 Encounter Details Date Type Department Care Team Description 07/19/2011 Telephone Cardiology at [facility] Chet Nicole MD [facility] [place] [address] CARDIOLOGY DEPT. [phone] [place], [place] [address] (Wo rk) Social History Tobacco [...] Collins MD [facility] GASTROENTEROLOGY DEPT [place], [place] [address] (Wo rk) 09/05/2022 Appointment Cardiology Trinity Reid MD [facility] CARDIOLOGY [place], [place] [address] (Wo rk) 09/05/2022 Office Visit Cardiology Trinity Reid MD [facility] ER CARDIOLOGY [place], [place] [address] (Wo rk) documented as of this encounter Visit Diagnoses Not on filedocumented in this encounter Care Teams Sap Project Manager Relationship Specialty Start Date End Date Bobby Das MD PCP - General 10/02/[address] [place] [address] [place] [phone] documented as of this encounter
--- OUTSIDE RECORDS SUMMARY | 2022-07-22 10:33 | XMS_ITS | Encounter Summary ---
:1940 Author Organization [facility] Address [address] [place] [address] Care Team Providers Name Role Phone Bobby Das MD Primary Care Provider Encounter Details Date Type Department Care Team Description 08/03/2020 Lab Requisition [facility] Outr Resulting Lab, Pathology & Laboratory Provider [facility] [address] [place], [place] [id number] Social History Tobacco Use Types Packs/Day Years [...] (08/03/2020 12:22 EDT) COVID-19 rt-PCR NEGATIVE Negative [facility] Result Comment: LABORATORY [...] Address City/State/ZIP Code Phon e Number [facility] [place] COVID-19 TESTING (08/03/2020 12:22 EDT) Pathologist [facility] COVID-19 rt-PCR NEGATIVE Negative [facility] Result Comment: LABORATORY 2019-novel Coronavirus [...] e Number [facility] [address] [place] [address] SERVICES [facility] [place], [place] documented in this encounter Visit Diagnoses Not on filedocumented in this encounter Care Teams Account Technician Relationship Specialty Start Date End Date Bobby Das MD PCP - General 07/06/[address] [place] [address] ,[address] [place] [address] documented as of this encounter
--- OUTSIDE RECORDS SUMMARY | 2022-07-22 10:33 | XMS_ITS | Encounter Summary ---
:1940 Author Organization [facility] Address [address] [place] [address] Care Team Providers Name Role Phone Bobby Das MD Primary Care Provider Reason for Visit Reason Onset Date Comments Prostate Cancer 06/03/2018 Encounter Details Date Type Department Care Team Description 06/03/2018 Telephone [facility] Cancer Center Aries Gutierrez Cancer Radiation Oncology - III, [address] [address] [address], [place] [address] (Wo rk) Social History Tobacco Use Types Packs/Day Years Used Date Current Every Day Smoker Smokeless Tobacco: Never Used Sex Assigned at Date Recorded Not on file documented as of this encounter Miscellaneous Notes Telephone Encounter - Delores Gutierrez III, MD - 06/03/2018 7142 EDT RADIATION ONCOLOGY I spoke with Mr. Zamora by phone today. He tells me he is unable to make it to [place] for follow-up visits with me as he [...] office if he will be in the [place] area as I would be happyto move my schedule as needed to see him for follow-up. I did strongly encourage him to continue follow-up with Dr. José and asked him to call them to arrange an appointment. He canceled his next scheduled follow-up appointment with me. Sj Gutierrez MD Radiation Oncology [phone] (office) [phone] (pager) This note has been prepared with voice recognition software. Please excuse mule spinner errors. documented in this encounter Plan of Treatment Not on filedocumented as of this encounter Visit Diagnoses Not on filedocumented in this encounter Care Teams Beam Dyer Recessed Vat Relationship Specialty Start Date End Date Bobby Das MD PCP - General 07/06/[address] [place] [address],[address] [place] [address] documented as of this encounter
--- OUTSIDE RECORDS SUMMARY | 2022-07-22 10:33 | XMS_ITS | Encounter Summary ---
:1940 Author Organization [facility] Address [address] [place] [address] Care Team Providers Name Role Phone Bobby Das MD Primary Care Provider Encounter Details Date Type Department Care Team Description 01/08/2019 Orders Only [facility] Cancer [place] Aries Gutierrez neoplasm of Radiation Oncology - Felix EAST MD prostate ([facility]) [address] (Primary Dx) [address] [place] [address] [facility] [phone] [facility] Level [address] [place] [address] (Wo rk) Social History Tobacco Use Types Packs/Day Years Used Date Current Every Day Smoker Smokeless Tobacco: Never Used Sex Assigned at Date Recorded Not on file documented as of this encounter Plan of Treatment Not on filedocumented as of this encounter Results PSA TOTAL, DIAGNOSTIC (07/16/2019 9:30 EDT) PSA 0.1 0 - 6.5 ng/ml [facility] Comment: LABORATORY SERVICES Serum PSA concentration should not be interpreted as absolute evidence for the presence or absence of malignant disease. Assayed utilizing Siemens (FindIt) chemiluminescent technology. ??Values obtained by using different assay methods cannot be used interchangeably. Specimen Blood specimen (specimen) - Blood Performing Organization Address City/State/ZIP Code Phon e Number [facility] [address] [place] [address] SERVICES documented in this encounter Visit Diagnoses Diagnosis Malignant neoplasm of prostate ([facility]) (HCC) - Primary Malignant neoplasm of prostate documented in this encounter Care Teams Pie Maker Relationship Specialty Start Date End Date Bobby Das MD PCP - General 07/06/[address] [place] [address],[address] [place] [phone] documented as of this encounter
--- OUTSIDE RECORDS SUMMARY | 2022-07-22 10:33 | XMS_ITS | Encounter Summary ---
:1940 Author Organization [facility] Address [address] [place] [address] Care Team Providers Name Role Phone Bobby Das MD Primary Care Provider Encounter Details Date Type Department Care Team Description 04/12/2021 Lab Requisition [facility] Outr Resulting Lab, Pathology & Laboratory Provider [facility] [address] [place], [place] [address] Social History Tobacco Use Types Packs/Day Years [...] nature Testosterone 269 229 - 902 ng/dL [facility] Specimen Blood - Venous blood (substance) Narrative [facility] - 04/12/2021 22:19 EDT The results of this assay can be falsley elevated due to the consumption of Biotin. Performing Organization Address City/State/ZIP Code Phon e Number [facility] [address] [place] [address] SERVICES documented in this encounter Visit Diagnoses Not on filedocumented in this encounter Care Teams Credit Consultant Relationship Specialty Start Date End Date Bobby Das MD PCP - General 07/06/[address] [place] [address] ,[address] [place] [address] documented as of this encounter
--- OUTSIDE RECORDS SUMMARY | 2022-07-22 10:33 | XMS_ITS | Encounter Summary ---
:1940 Author Organization [facility] Address [address] [place] [address] Care Team Providers Name Role Phone Bobby Das MD Primary Care Provider Encounter Details Date Type Department Care Team Description 07/16/2019 Phlebotomy Only [facility] Toucher Up, Eboni barbosa neoplasm - [facility] Outpatient of prostate [address] [facility] ([facility]) (Primary Campus, [place] Dx) [address] Social History Tobacco Use [...] DIAGNOSTIC of prostate procedure are i n ([facility]) the results section. documented in this encounter Results PSA TOTAL, DIAGNOSTIC (07/16/2019 9:30 EDT) PSA 0.1 0 - 6.5 ng/ml [facility] Comment: LABORATORY SERVICES Serum PSA concentration should not be interpreted as absolute evidence for the presence or absence of malignant disease. Assayed utilizing Siemens ([employer]) chemiluminescent technology. ??Values obtained by using different assay methods cannot be used interchangeably. Specimen Blood specimen (specimen) - Blood Performing Organization Address City/State/ZIP Code Phon e Number [facility] [address] [place] [address] SERVICES documented in this encounter Visit Diagnoses Diagnosis Malignant neoplasm of prostate ([facility]) (HCC) - Primary Malignant neoplasm of prostate documented in this encounter Orders Lab Orders Without Results Count Last Ordered Date st Ordered Date PSA TOTAL, DIAGNOSTIC 1 07/16/2019 documented in this encounter Care Teams Sports Marketing Coordinator Relationship Specialty Start Date End Date Bobby Das MD PCP - General 07/06/[address] [place] [address],[address] [place] [address] documented as of this encounter
--- OUTSIDE RECORDS SUMMARY | 2022-07-22 10:33 | XMS_ITS | Encounter Summary ---
:1940 Author Organization [facility] Address [address] [place] [address] Care Team Providers Name Role Phone Bobby Das MD Primary Care Provider Encounter Details Date Type Department Care Team Description 07/11/2019 Hospital Encounter [facility] Aries Gutierrez Radiation Oncology - III, [facility] [address] [facility] [address] [place] [address] Pavilion, [place] [phone] (Wo rk) Social History Tobacco Use Types [...] on filedocumented in this encounter Care Teams Work Force Advisor Relationship Specialty Start Date End Date Bobby Das MD PCP - General 07/06/[address] [place] [address] ,[address] [place] [address] documented as of this encounter
--- OUTSIDE RECORDS SUMMARY | 2022-07-22 10:33 | XMS_ITS | Encounter Summary ---
:1940 Author Organization [facility] Address [address] [place] [address] Care Team Providers Name Role Phone Bobby Das MD Primary Care Provider Encounter Details Date Type Department Care Team Description 04/23/2018 Hospital Encounter [facility]- Devi Unknown, Provider, [facility] [address] [facility] [phone] [place] [address] (Work) [phone] Social History Tobacco Use Types Packs/Day Years [...] Code Departure Means Destination Home or Self Long-Term documented in this encounter Plan of Treatment Not on filedocumented as of this encounter Visit Diagnoses Not on filedocumented in this encounter Care Teams Parts Technician Relationship Specialty Start Date End Date Bobby Das MD PCP - General 07/06/[address] [place] [address] ,[address] [place] [phone] documented as of this encounter
--- OUTSIDE RECORDS SUMMARY | 2022-07-22 10:33 | XMS_ITS | Encounter Summary ---
:1940 Author Organization [facility] Address [address] [place] [address] Care Team Providers Name Role Phone Bobby Das MD Primary Care Provider Encounter Details Date Type Department Care Team Description 07/16/2019 Hospital Encounter [facility] - Dayne Gutierrez [facility] III, MD [id number] [place] [address] [facility] [address] [place] [address] (Wo rk) Social History Tobacco [...] filedocumented in this encounter Care Teams Windows Security Engineer Relationship Specialty Start Date End Date Bobby Das MD PCP - General 07/06/[address] [place] [address] ,[address] [place] [phone] documented as of this encounter
--- OUTSIDE RECORDS SUMMARY | 2022-07-22 10:33 | XMS_ITS | Encounter Summary ---
:1940 Author Organization [facility] Address [address] [place] [address] Care Team Providers Name Role Phone Bobby Das MD Primary Care Provider Reason for Visit Reason Comments Prostate Cancer Follow up Encounter Details Date Type Department Care Team Description 07/16/2019 Office Visit [facility] Cancer Center Aries Gutierrez neoplasm of Radiation Oncology - Felix EAST MD prostate ([facility]) Main [address] (Primary Dx) [address] [place] [id number] [place] [address], [place] [phone] [facility] Level [address] [place] [address] (Wo rk) Social History Tobacco [...] DATE OF SERVICE: 07/16/2019 DIAGNOSIS AND STAGE: [id number], PSA 12.8 Winifred score 3+4 = 7 [...] this point. He is being evaluated at [facility] next week for possible tuboplasty. [...] prepared with voice recognition software. Please excuse underwater trapper errors. documented in this encounter Plan of [...] ORAL) added in this encounter Care Teams Check Inspector Relationship Specialty Start Date End Date Bobby Das MD PCP - General 07/06/[address] [place] [address],[address] [place] [address] documented as of this encounter
--- OUTSIDE RECORDS SUMMARY | 2022-07-22 10:33 | XMS_ITS | Clinical Summary ---
:1940 Author Organization [facility] Address [address] [place] [address] Care Team Providers Name Role Phone Bobby [...] Problem Noted Date Malignant neoplasm of prostate ([facility]) 11/19/2017 Cancer Staging: Clinical stage from 11/19: Stage IIB (cT2a, cN0, cM0, PSA: 12.8, Grade Group: 2) - Signed by Delores Gutierrez III, MD on 11/19/2017 Medical History Medical History Date Comments Cancer ([facility]) (HCC) Hyperlipidemia Family History Medical History [...] T ype Group Dates MEDICARE MEDICARE A/B [id number] 2007-Pre [address] edicare GL sent [id number] [place] [address] [facility] [id number] 2021-Pre [address] Commercial GL [facility] sent [place], [place] [phone] COMPANY Koko Zamora Personal/Family Self 1940 [address] (Home) [place] [address] Koko Zamora Personal/Family Self 1940 [address] (Home) [place] [address] Koko Zamora Personal/Family Self 1940 [address] ([place]) [place] [address] Care Teams President Mortgage Company Relationship Specialty Start Date End Date Bobby Das MD PCP - General 07/06/[address] [place] [address],[address] [place] [phone]
--- OUTSIDE RECORDS SUMMARY | 2022-07-22 10:33 | XMS_ITS | Encounter Summary ---
:1940 Author Organization [facility] Address [address] [place] [address] Care Team Providers Name Role Phone Abby Das MD Primary Care Provider Encounter Details Date Type Department Care Team Description 04/22/2018 Results Only [facility] Abby Das MD [phone] [place] [address],[address] [place], [place] [phone] (Wo rk) Social History [...] 8:40 EDT) Pathology Report: SURGICAL PATHOLOGY REPORT [facility] Reports generated via electronic interface contain abram ginal data; LABORATORY however they are lacking the format of the original re port. SERVICES Caution should be taken when reading/interpreting unfo rmatted reports. Name: ? ETTA BAH ? Accession #: ? [id number] ? : ? 1940 (Age: 77) ??M [...] Organization Address City/State/ZIP Code Phon e Number [facility] [address] [place] [address] SERVICES documented in this encounter Visit Diagnoses Not on filedocumented in this encounter Care Teams Insulation Board Calender Operator Relationship Specialty Start Date End Date Abby Das MD PCP - General 07/06/[address] [place] [address] ,[address] [place] [phone] documented as of this encounter
--- OUTSIDE RECORDS SUMMARY | 2022-07-22 10:33 | XMS_ITS | Encounter Summary ---
:1940 Author Organization [facility] Address [address] [place] [address] Care Team Providers Name Role Phone Bobby Das MD Primary Care Provider Encounter Details Date Type Department Care Team Description 08/28/2020 Lab Requisition [facility] Outr Resulting Lab, Pathology & Laboratory Provider [facility] [address] [place], [place] [phone] Social History Tobacco Use Types Packs/Day Years [...] (08/28/2020 9:58 EDT) COVID-19 rt-PCR NEGATIVE Negative [facility] Result Comment: LABORATORY 2019-novel Coronavirus [...] Organization Address City/State/ZIP Code Phon e Number [facility] [place] [place] COVID-19 TESTING (08/28/2020 9:58 EDT) Pathologist [facility] COVID-19 rt-PCR NEGATIVE Negative [facility] Result Comment: LABORATORY 2019-novel Coronavirus (2019 [...] Administration's Emergency Use Authorization. Performing Lab [facility] LABORATORY SERVICES Specimen Swab Performing Organization Address City/State/ZIP Code Phon e Number [facility] [address] [place] [address] [facility] [place] documented in this encounter Visit Diagnoses Not on filedocumented in this encounter Care Teams Jewelry Model Maker Relationship Specialty Start Date End Date Bobby Das MD PCP - General 07/06/[address] [place] [address] ,[address] [place] [address] documented as of this encounter
--- OUTSIDE RECORDS SUMMARY | 2022-07-22 10:33 | XMS_ITS | Encounter Summary ---
:1940 Author Organization [facility] Address [address] [place] [address] Care Team Providers Name Role Phone Bobby Das MD Primary Care Provider Reason for Referral Laboratory Services (Routine) - Closed Specialty Diagnoses / Procedures Referred By Contact Refer red To Contact Diagnoses Malignant neoplasm of prostate ([facility]) ([facility]) Aries Gutierrez III, Procedures PSA TOTAL, DIAGNOSTIC MD [address] [place] [phone] Referral ID Status Reason Start Date Expiration Date Visits Requ ested Visits Authorized [id number] Closed 07/11/2019 1 1 Encounter Details Date Type Department Care Team Description 01/08/2019 Documentation Visit [facility] Cancer Center Aries Gutierrez Malignant neoplasm Radiation Oncology Felix EAST MD of prostate - [address] ([facility]) (Primary 111 [facility] Dx) [facility], [address] [place] [address] [address] Social History Tobacco Use Types [...] Visit Diagnoses Diagnosis Malignant neoplasm of prostate ([facility]) (HCC) - Primary Malignant neoplasm of prostate documented in this encounter Care Teams Explosives Handler Relationship Specialty Start Date End Date Bobby Das MD PCP - General 07/06/[address] [place] [address],[address] [place] [phone] documented as of this encounter
--- OUTSIDE RECORDS SUMMARY | 2022-07-22 10:33 | XMS_ITS | Encounter Summary ---
:1940 Author Organization [facility] Address [address] [place] [address] Care Team Providers Name Role Phone Bobby Das MD Primary Care Provider Encounter Details Date Type Department Care Team Description 06/17/2019 Results Only Imaging [facility]- Unknown, PRISM ProviderMD [phone] Social History Tobacco Use Types Packs/Day Years [...] filedocumented in this encounter Care Teams Supervisor Maintenance Relationship Specialty Start Date End Date Bobby Das MD PCP - General 07/06/[address] [place] [address] ,[address] [place] [phone] documented as of this encounter
--- OUTSIDE RECORDS SUMMARY | 2022-07-22 10:34 | XMS_ITS | Encounter Summary ---
:1940 Author Organization [facility] Address [address] [place] [address] Care Team Providers Name Role Phone Bobby Das MD Primary Care Provider Reason for Visit Reason Onset Date Comments Prostate Cancer 11/20/2017 Encounter Details Date Type Department Care Team Description 11/20/2017 Orders Only [facility] Cancer Center Aries Gutierrez Radiation Oncology - [facility], [address] [address] [address], [place], [place] [phone] (Wo rk) Social History Tobacco Use Types [...] filedocumented in this encounter Care Teams Electrical Project Manager Relationship Specialty Start Date End Date Bobby Das MD PCP - General 07/06/[address] [place] [address] ,[address] [place] [address] documented as of this encounter
--- OUTSIDE RECORDS SUMMARY | 2022-07-22 10:34 | XMS_ITS | Encounter Summary ---
:1940 Author Organization [facility] Address [address] [place] [address] Care Team Providers Name Role Phone Bobby Das MD Primary Care Provider Encounter Details Date Type Department Care Team Description 01/08/2018 Hospital Encounter [facility] Aries Gutierrez Radiation Oncology - III, [facility] [address] [address] [address], [place] [phone] (Wo rk) Social History Tobacco Use Types [...] on filedocumented in this encounter Care Teams Tumbling Barrel Painter Relationship Specialty Start Date End Date Bobby Das MD PCP - General 07/06/[address] [place] [address],[address] [place] [address] documented as of this encounter
--- OUTSIDE RECORDS SUMMARY | 2022-07-22 10:34 | XMS_ITS | Encounter Summary ---
:1940 Author Organization [facility] Address [address] [place] [address] Care Team Providers Name Role Phone Bobby Das MD Primary Care Provider Reason for Visit Reason Onset Date Comments Prostate Cancer 11/20/2017 Encounter Details Date Type Department Care Team Description 11/20/2017 Telephone [facility] Cancer Center Aries Gutierrez Cancer Radiation Oncology - III, [address] [address] [address], [place] [address] (Wo rk) Social History Tobacco Use Types Packs/Day Years Used Date Current Every Day Smoker Smokeless Tobacco: Never Used Sex Assigned at Date Recorded Not on file documented as of this encounter Miscellaneous Notes Telephone Encounter - Delores Gutierrez III, MD - 11/20/2017 8403 EST RADIATION ONCOLOGY I spoke with Mr. [...] first injection. Sj Gutierrez MD Radiation Oncology [phone] (office) [phone] (pager) This note has been prepared with voice recognition software. Please excuse dietary internship errors. documented in this encounter Plan of Treatment Not on filedocumented as of this encounter Visit Diagnoses Diagnosis Malignant neoplasm of prostate (HCC-CMS) (HCC) - Primary Malignant neoplasm of prostate documented in this encounter Care Teams Departmental Shipping Clerk Relationship Specialty Start Date End Date Bobby Das MD PCP - General 07/06/[address] [place] [address],[address] [place] [address] documented as of this encounter
--- OUTSIDE RECORDS SUMMARY | 2022-07-22 10:34 | XMS_ITS | Encounter Summary ---
:1940 Author Organization [facility] Address [address] [place] [address] Care Team Providers Name Role Phone Bobby Das MD Primary Care Provider Reason for Visit Reason Comments Cancer Encounter Details Date Type Department Care Team Description 02/24/2018 Radiation Therapy [facility] Isela Law Ma lignant neoplasm of prostate (HCC-CMS) (Primary Dx); Visit Radiation Oncology - DION roldan deprivation therapy Main [place] [address] [place] [address] Social History Tobacco Use Types Packs/Day [...] Visit Diagnoses Diagnosis Malignant neoplasm of prostate ([facility]) (HCC) - Primary Malignant neoplasm of prostate Androgen deprivation therapy Encounter for therapeutic drug monitorin g documented in this encounter Care Teams Seismograph Supervisor Relationship Specialty Start Date End Date Bobby Das MD PCP - General 07/06/[address] [place] [address] ,[address] [place] [address] documented as of this encounter
--- OUTSIDE RECORDS SUMMARY | 2022-07-22 10:34 | XMS_ITS | Encounter Summary ---
:1940 Author Organization [facility] Address [address] [place] [address] Care Team Providers Name Role Phone Bobby Das MD Primary Care Provider Reason for Visit Reason Onset Date Comments Follow-up 01/12/2018 Encounter Details Date Type Department Care Team Description 01/12/2018 Telephone [facility] Radiation De Law RN Follow-up Oncology - [address] [address] Social History Tobacco Use Types Packs/Day Years Used Date Current Every Day Smoker Smokeless Tobacco: Never Used Sex Assigned at Date Recorded Not on file documented as of this encounter Miscellaneous Notes Telephone Encounter - Isela Law RN - 01/12/2018 2684 EST This is a planned post procedure [...] filedocumented in this encounter Care Teams Site Damage Prevention Technician Relationship Specialty Start Date End Date Bobby Das MD PCP - General 07/06/[address] [place] [address],[address] [place] [address] documented as of this encounter
--- OUTSIDE RECORDS SUMMARY | 2022-07-22 10:34 | XMS_ITS | Encounter Summary ---
:1940 Author Organization [facility] Address [address] [place] [address] Care Team Providers Name Role Phone Bobby Das MD Primary Care Provider Encounter Details Date Type Department Care Team Description 01/16/2018 Results Only [facility] Cancer Center Aries Gutierrez Imaging Radiation Oncology - III, [facility] 111 [facility] [address] [place] [address] [address]ilion, [place] [address] (Wo rk) Social History Tobacco Use Types [...] on filedocumented in this encounter Care Teams Nanoscience Technician Relationship Specialty Start Date End Date Bobby Das MD PCP - General 07/06/[address] [place] [address] ,[address] [place] [address] documented as of this encounter
--- OUTSIDE RECORDS SUMMARY | 2022-07-22 10:34 | XMS_ITS | Encounter Summary ---
:1940 Author Organization [facility] Address [address] [place] [address] Care Team Providers Name Role Phone Bobby Das MD Primary Care Provider Encounter Details Date Type Department Care Team Description 02/08/2018 Hospital Encounter [facility] Aries Gutierrez Radiation Oncology - III, [facility] 111 [facility] [address] [place] [address] [address]ilion, [place] [address] (Wo rk) Social History Tobacco Use Types [...] Code Departure Means Destination Home or Self Skilled Nursing documented in this encounter Plan of Treatment Not on filedocumented as of this encounter Visit Diagnoses Not on filedocumented in this encounter Care Teams Capacitor Tester Relationship Specialty Start Date End Date Bobby Das MD PCP - General 07/06/[address] [place] [address],[address] [place] [phone] documented as of this encounter
--- OUTSIDE RECORDS SUMMARY | 2022-07-22 10:34 | XMS_ITS | Encounter Summary ---
:1940 Author Organization [facility] Address [address] [place] [address] Care Team Providers Name Role Phone Bobby Das MD Primary Care Provider Reason for Visit Reason Comments Follow-up Encounter Details Date Type Department Care Team Description 12/02/2017 Office Visit [facility] Erlin José MD Malignant neoplasm of Urology - [address] ([facility] ([facility]) (Primary 111 [facility] [place] [address] [address], [place] [address] (Wo rk) Social History Tobacco [...] Progress Notes Chino José MD - 12/02/2017 9716 EST Chief Complaint: Chief Complaint Patient presents with ??? Follow-up HPI: Koko is a 77 y.o. male with prostate cancer. I originally saw the patient and [facility] and diagnosed him with [place] 3+4 prostate cancer associated with a PSA of 12.8. He underwent a bone scan for staging that came back negative for metastatic disease. He is seeing me today at [facility] for a Lupron injection. He started [...] ( desire to have sex ). Some meterman hormonal therapy is associated with the loss [...] 12/02 documented in this encounter Care Teams Kinesiology Internship Relationship Specialty Start Date End Date Bobby Das MD PCP - General 07/06/[address] [place] [address],[address] [place] [address] documented as of this encounter
--- OUTSIDE RECORDS SUMMARY | 2022-07-22 10:34 | XMS_ITS | Encounter Summary ---
:1940 Author Organization [facility] Address [address] [place] [address] Care Team Providers Name Role Phone Bobby Das MD Primary Care Provider Reason for Visit Reason Comments Follow-up Injection Encounter Details Date Type Department Care Team Description 01/05/2018 Office Visit [facility] Erlin José MD Malignant neoplasm of Urology - Main [address] [place] [address] ([facility] ([facility]) (Primary 111 [facility] [place] [address] Pav[address], [place] [address] (Wo rk) Social History Tobacco [...] Progress Notes Chino José MD - 01/05/2018 6812 EST Chief Complaint: Chief Complaint Patient presents with ??? Follow-up Injection HPI: Koko is a 77 y.o. male with prostate cancer. Grant presented with an elevated PSA to 12.8 shaw palpable nodule and on biopsy had 2 out of 12 cores positive for Winifred 3+3 and [place] 3+4 prostate cancer. T2a. He previously had [...] Dr. Gutierrez this week See me at [facility] after radiation therapy is complete with [...] mg documented in this encounter Care Teams Country Singer Relationship Specialty Start Date End Date Bobby Das MD PCP - General 07/06/[address] [place] [address],[address] [place] [address] documented as of this encounter
--- OUTSIDE RECORDS SUMMARY | 2022-07-22 10:34 | XMS_ITS | Encounter Summary ---
:1940 Author Organization [facility] Address [address] [place] [address] Care Team Providers Name Role Phone Bobby Das MD Primary Care Provider Encounter Details Date Type Department Care Team Description 01/08/[address] [facility] Cancer Center Aries Gutierrez Radiation Oncology - IIIMD [address] [address] [address], [place] [phone] (Wo rk) Social History Tobacco Use Types [...] prostate gland. DATE OF SERVICE: 01/08/2018 INDICATIONS: [id number], PSA 12.8 Winifred score 3+4 = 7 [...] documented as of this encounter Care Teams Patient Service Representative Relationship Specialty Start Date End Date Bobby Das MD PCP - General 07/06/[address] [place] [address] ,[address] [place] [address] documented as of this encounter
--- OUTSIDE RECORDS SUMMARY | 2022-07-22 10:34 | XMS_ITS | Encounter Summary ---
:1940 Author Organization [facility] Address [address] [place] [address] Care Team Providers Name Role Phone Unknown, Provider Primary Care Provider Encounter Details Date Type Department Care Team Description 07/03/[address] [facility] Unknown, Provider, [facility] 0 [facility] [phone] [place] [address] (Work) [phone] Social History Tobacco Use Types Packs/Day Years Used Date Never Assessed Sex Assigned at Date Recorded Not on file documented as of this encounter Discharge Disposition Disposition Code Departure Means Destination Home or Self [facility] documented in this encounter Plan of Treatment Not on filedocumented as of this encounter Visit Diagnoses Not on filedocumented in this encounter Care Teams Restaurant Expeditor Relationship Specialty Start Date End Date Unknown, Provider, PCP - General 07/03/15 07/05/15 documented as of this encounter
--- OUTSIDE RECORDS SUMMARY | 2022-07-22 10:34 | XMS_ITS | Encounter Summary ---
:1940 Author Organization [facility] Address [address] [place] [address] Care Team Providers Name Role Phone Bobby Das MD Primary Care Provider Reason for Visit Reason Onset Date Comments Medication Management 11/21/2017 Encounter Details Date Type Department Care Team Description 11/21/2017 Orders Only [facility] Radiation De Law RN Oncology - [address] [phone] Social History Tobacco Use Types Packs/Day Years [...] on filedocumented in this encounter Care Teams Hatchery Helper Relationship Specialty Start Date End Date Bobby Das MD PCP - General 07/06/[address] [place] [address] ,[address] [place] [phone] documented as of this encounter
--- OUTSIDE RECORDS SUMMARY | 2022-07-22 10:34 | XMS_ITS | Encounter Summary ---
:1940 Author Organization [facility] Address [address] [place] [address] Care Team Providers Name Role Phone Bobby Das MD Primary Care Provider Encounter Details Date Type Department Care Team Description 03/04/2018 Documentation Visit [facility] Cancer Center Aries Gutierrez Radiation Oncology - III, [address] [address] [address], [place] [phone] (Wo rk) Social History Tobacco Use Types Packs/Day Years Used Date Current Every Day Smoker Smokeless Tobacco: Never Used Sex Assigned at Date Recorded Not on file documented as of this encounter Miscellaneous Notes Treatment Summary - Delores Gutierrez III, MD - 03/04/2018 1339 EDT Images from the original note were not included. 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 He [...] Dr. José. Sj Gutierrez MD Radiation Oncology [phone] (office) [phone] (pager) This note has been prepared with voice recognition software. Please excuse stamp maker errors. documented in this encounter Plan of Treatment Not on filedocumented as of this encounter Visit Diagnoses Not on filedocumented in this encounter Care Teams Cardiology Technician Relationship Specialty Start Date End Date Bobby Das MD PCP - General 07/06/[address] [place] [address],[address] [place] [address] documented as of this encounter
--- OUTSIDE RECORDS SUMMARY | 2022-07-22 10:34 | XMS_ITS | Encounter Summary ---
:1940 Author Organization [facility] Address [address] [place] [address] Care Team Providers Name Role Phone Bobby Das MD Primary Care Provider Reason for Visit Reason Comments Prostate Cancer Encounter Details Date Type Department Care Team Description 02/03/2018 Radiation Therapy [facility] Aries Gutierrez alignant neoplasm Visit Radiation Oncology Felix EAST MD of [facility] - [address] ([facility]) ([facility] [address] [place] [address] (Primary Dx) [facility], [address] [place] [address] [address] [place] [address] Social History Tobacco Use Types Packs/Day Years Used Date Current Every Day Smoker Smokeless Tobacco: Never Used Sex Assigned at Date Recorded Not on file documented as of this encounter Progress Notes Delores Gutierrez III, MD - 02/03/2018 7445 EDT On Treatment Visit Assessment: Koko Zamora is currently receiving radiation therapy treatment and is being seen today for his weekly on treatment visit. The encounter diagnosis was Malignant neoplasm of prostate ([facility]). Assessment: Assessment Completed By: Felix Gutierrez MD (02/03/18 4954) Radiation Therapy: Cumulative RT Dose 600 cGy [...] Changes: None Sj Gutierrez MD Radiation Oncology [phone] (office) [phone] (pager) documented in this encounter Plan of [...] documented as of this encounter Care Teams Survey Analyst Relationship Specialty Start Date End Date Bobby Das MD PCP - General 07/06/[address] [place] [address],[address] [place] [address] documented as of this encounter
--- OUTSIDE RECORDS SUMMARY | 2022-07-22 10:34 | XMS_ITS | Encounter Summary ---
:1940 Author Organization [facility] Address [address] [place] [address] Care Team Providers Name Role Phone Bobby aDs MD Primary Care Provider Reason for Visit Reason Comments Cancer Encounter Details Date Type Department Care Team Description 02/16/2018 Radiation Therapy [facility] Isela Law Ma lignant neoplasm of Visit Radiation Oncology - RN prostleonid e ([facility]) Main [place] (Primary Dx) [address] [place] [address] Social History Tobacco Use Types Packs/Day [...] encounter diagnosis was Malignant neoplasm of prostate ([facility]). Assessment: Assessment Completed By: Isela Law [...] prostate documented in this encounter Care Teams Sweet Dough Mixer Relationship Specialty Start Date End Date Bobby Das MD PCP - General 07/06/[address] [place] [address],[address] [place] [address] documented as of this encounter
--- OUTSIDE RECORDS SUMMARY | 2022-07-22 10:34 | XMS_ITS | Encounter Summary ---
:1940 Author Organization [facility] Address [address] [place] [address] Care Team Providers Name Role Phone Bobby Das MD Primary Care Provider Reason for Visit Reason Onset Date Comments Medication Management 02/16/2018 Encounter Details Date Type Department Care Team Description 02/16/2018 Orders Only [facility] Radiation De Law canal superintendent - [address] [id number] Social History Tobacco Use Types Packs/Day Years [...] on filedocumented in this encounter Care Teams Aircraft Motor Mechanic Relationship Specialty Start Date End Date Bobby Das MD PCP - General 07/06/[address] [place] [address],[address] [place] [address] documented as of this encounter
--- OUTSIDE RECORDS SUMMARY | 2022-07-22 10:34 | XMS_ITS | Encounter Summary ---
:1940 Author Organization [facility] Address [address] [place] [address] Care Team Providers Name Role Phone Bobby Das MD Primary Care Provider Encounter Details Date Type Department Care Team Description 11/20/2017 Results Only Imaging [facility]- Unknown, PRISM ProviderMD [phone] Social History Tobacco Use Types Packs/Day Years [...] on filedocumented in this encounter Care Teams Awning Installer Relationship Specialty Start Date End Date Bobby Das MD PCP - General 07/06/[address] [place] [address],[address] [place] [address] documented as of this encounter
--- OUTSIDE RECORDS SUMMARY | 2022-07-22 10:34 | XMS_ITS | Encounter Summary ---
:1940 Author Organization [facility] Address [address] [place] [address] Care Team Providers Name Role Phone Bobby Das MD Primary Care Provider Reason for Visit Reason Comments Cancer Encounter Details Date Type Department Care Team Description 02/27/2018 Radiation Therapy [facility] Letty Gaitan RN Malignant neoplasm Visit Radiation Oncology [address] [place] [address] ([facility]) (Primary [address] [place], [place] Dx) [place] [address] Social History Tobacco Use Types Packs/Day Years [...] encounter diagnosis was Malignant neoplasm of prostate ([facility]). Assessment: Assessment Completed By: [...] prostate documented in this encounter Care Teams Commercial Roofing Estimator Relationship Specialty Start Date End Date Bobby Das MD PCP - General 07/06/[address] [place] [address] ,[address] [place] [address] documented as of this encounter
--- OUTSIDE RECORDS SUMMARY | 2022-07-22 10:34 | XMS_ITS | Encounter Summary ---
:1940 Author Organization [facility] Address [address] [place] [address] Care Team Providers Name Role Phone Bobby Das MD Primary Care Provider Reason for Visit Reason Comments Cancer Encounter Details Date Type Department Care Team Description 01/08/2018 Radiation Therapy [facility] Isela Law Ma lignant neoplasm of Visit Radiation Oncology - RN prostat e ([facility]) Main [place] ([facility]) (Primary [address] [facility] Dx) [place] [address] Social History Tobacco Use Types [...] prostate documented in this encounter Care Teams Animal Pathologist Relationship Specialty Start Date End Date Bobby Das MD PCP - General 07/06/[address] [place] [address],[address] [place] [address] documented as of this encounter
--- OUTSIDE RECORDS SUMMARY | 2022-07-22 10:34 | XMS_ITS | Encounter Summary ---
:1940 Author Organization [facility] Address [address] [place] [address] Care Team Providers Name Role Phone Bobby Das MD Primary Care Provider Reason for Visit Reason Onset Date Comments Follow-up 02/24/2018 Appointment Related 02/24/2018 scheduled appt w/ nu rsing for Lupron injection on 04/06 Encounter Details Date Type Department Care Team Description 02/24/2018 Telephone [facility] Ama Corea, Follow -up; Appointment Urology - James campo RN Related (scheduled appt [facility] w/ [place] [address] injection on 04/06) [phone] Social History Tobacco Use Types Packs/Day Years Used Date Current Every Day Smoker Smokeless Tobacco: Never Used Sex Assigned at Date Recorded Not on file documented as of this encounter Miscellaneous Notes Telephone Encounter - Mague Crisostomo - 02/25/2018 1044 EDT scheduled appt w/ nursing for Lupron injection on 04/06; pt prefers it at the [place] office Telephone Encounter - Ama Corea, RN [...] on filedocumented in this encounter Care Teams Cross Cut Saw Operator Relationship Specialty Start Date End Date Bobby Das MD PCP - General 07/06/[address] [place] [address],[address] [place] [address] documented as of this encounter
--- OUTSIDE RECORDS SUMMARY | 2022-07-22 10:34 | XMS_ITS | Encounter Summary ---
:1940 Author Organization [facility] Address [address] [place] [address] Care Team Providers Name Role Phone Unknown, Provider Primary Care Provider Encounter Details Date Type Department Care Team Description 07/03/[address] [facility]- PRISM Abby Das MD [phone] [place] [address],[address] [place], [place] [phone] (Wo rk) Social History [...] 8:54 EDT) Pathology Report: SURGICAL PATHOLOGY REPORT [facility] Reports generated via electronic interface contain abram ginal data; LABORATORY however they are lacking the format of the original re port. SERVICES Caution should be taken when reading/interpreting unfo rmatted reports. Name: ? ETTA BAH ? Accession #: ? [id number] ? : ? 1940 (Age: 74) ??M ? Collect Date: ? 07/03/2015 ? Location: ? [facility] ? Receive Date: ? 07/04/20 15 ? Provider: ABBY DAS MD Copy to: ? Final Pathologic Diagnosis: SKIN OF MUSLIM, RIGHT, EXCISION: - Basal cell carcinoma, infiltrative [...] the above diagnosi s. Specimen(s) Received: R taoist Clinical History: Basal cell carcinoma reexcision Gross [...] Address City/State/ZIP Code Phon e Number [facility] [address] [place] [address] SERVICES documented in this encounter Visit Diagnoses Not on filedocumented in this encounter Care Teams Bobbin Marker Relationship Specialty Start Date End Date Unknown, Provider, PCP - General 07/03/15 07/05/15 documented as of this encounter
--- OUTSIDE RECORDS SUMMARY | 2022-07-22 10:34 | XMS_ITS | Encounter Summary ---
:1940 Author Organization [facility] Address [address] [place] [address] Care Team Providers Name Role Phone Bobby Das MD Primary Care Provider Reason for Visit Reason Onset Date Comments Cancer 03/18/2018 Encounter Details Date Type Department Care Team Description 03/18/2018 Telephone [facility] Aries Gutierrez II, Cancer Radiation Oncology - [address] [address] [address], [place] [address] (Wo rk) Social History Tobacco Use Types Packs/Day Years Used Date Current Every Day Smoker Smokeless Tobacco: Never Used Sex Assigned at Date Recorded Not on file documented as of this encounter Miscellaneous Notes Telephone Encounter - Delores Gutierrez III, MD - 03/18/2018 0132 EDT RADIATION ONCOLOGY Mr. Zamora called the [...] this month. Sj Gutierrez MD Radiation Oncology [phone] (office) [phone] (pager) This note has been prepared with voice recognition software. Please excuse motor checker errors. documented in this encounter Plan of Treatment Not on filedocumented as of this encounter Visit Diagnoses Not on filedocumented in this encounter Care Teams Clinical Cytogenetics Director Relationship Specialty Start Date End Date Bobby Das MD PCP - General 07/06/[address] [place] [address] ,[address] [place] [address] documented as of this encounter
--- OUTSIDE RECORDS SUMMARY | 2022-07-22 10:34 | XMS_ITS | Encounter Summary ---
:1940 Author Organization [facility] Address [address] [place] [address] Care Team Providers Name Role Phone Bobby Das MD Primary Care Provider Reason for Visit Reason Onset Date Comments Cancer 02/16/2018 Encounter Details Date Type Department Care Team Description 02/16/2018 Orders Only [facility] Isela Law Maligna nt neoplasm of prostate (HCC-CMS) (Primary Dx); Radiation Oncology - RN Andvamshi n deprivation therapy [address] [address] Social History Tobacco Use Types Packs/Day Years [...] g documented in this encounter Care Teams Naturopathic Physician Relationship Specialty Start Date End Date Bobby Das MD PCP - General 07/06/[address] [place] [address] ,[address] [place] [address] documented as of this encounter
--- OUTSIDE RECORDS SUMMARY | 2022-07-22 10:34 | XMS_ITS | Encounter Summary ---
:1940 Author Organization [facility] Address [address] [place] [address] Care Team Providers Name Role Phone Bobby Das MD Primary Care Provider Reason for Visit Reason Onset Date Comments Appointment Related 03/19/2018 Encounter Details Date Type Department Care Team Description 03/19/2018 Telephone [facility] Dominique Mirza, [place]loane ointment Related Urology - James campo RN [address] [place] [address] Social History Tobacco Use Types [...] there. ill plan to see him at [facility]. Tc to pt to [...] can stop the Lupron. Routed to rimma Boswer to advise cancel nsg appt on 04/07 but the pt still has an appt with on 04/07. Message sent to to ask if pt should keep the 04/07 appt with him and if so, [facility] the [facility] as originally suggested in 's 01/05 progress note. Will call patient to let him know if he needs to f/u with and if so, can [facility] be [facility]. documented in this encounter Plan of Treatment Not on filedocumented as of this encounter Visit Diagnoses Not on filedocumented in this encounter Care Teams Helicopter Technician Relationship Specialty Start Date End Date Bobby Das MD PCP - General 07/06/[address] [place] [address],[address] [place] [address] documented as of this encounter
--- OUTSIDE RECORDS SUMMARY | 2022-07-22 10:34 | XMS_ITS | Encounter Summary ---
:1940 Author Organization [facility] Address [address] [place] [address] Care Team Providers Name Role Phone Bobby Das MD Primary Care Provider Encounter Details Date Type Department Care Team Description 10/29/2017 Hospital Encounter [facility]- Deiv Unknown, Provider, [facility] [address] [facility] [phone] [place] [address] (Work) [phone] Social History Tobacco Use Types Packs/Day Years Used Date Never Assessed Sex Assigned at Date Recorded Not on file documented as of this encounter Discharge Disposition Disposition Code Departure Means Destination Home or Self Long-Term documented in this encounter Plan of Treatment Not on filedocumented as of this encounter Visit Diagnoses Not on filedocumented in this encounter Care Teams Embroiderer Relationship Specialty Start Date End Date Bobby Das MD PCP - General 07/06/[address] [place] [address],[address] [place] [address] documented as of this encounter
--- OUTSIDE RECORDS SUMMARY | 2022-07-22 10:34 | XMS_ITS | Encounter Summary ---
:1940 Author Organization [facility] Address [address] [place] [address] Care Team Providers Name Role Phone Bobby Das MD Primary Care Provider Reason for Visit Reason Comments Prostate Cancer Encounter Details Date Type Department Care Team Description 02/23/2018 Radiation Therapy [facility] Aries Gutierrez alignant neoplasm Visit Radiation Oncology Felix EAST MD of [facility] - [address] ([facility]) (Primary [address] [place] [address] Dx) [facility], [address] [place] [address] [address] [place] [address] Social History Tobacco Use Types [...] encounter diagnosis was Malignant neoplasm of prostate ([facility]). Assessment: Assessment Completed By: Felix Gutierrez MD (02/23/18 9757) Radiation Therapy: Cumulative RT Dose 4800 cGy [...] Dr. King Sj Gutierrez MD Radiation Oncology [phone] (office) [phone] (pager) documented in this encounter Plan of Treatment Not on filedocumented as of this encounter Visit Diagnoses Diagnosis Malignant neoplasm of prostate (HCC-CMS) (HCC) - Primary Malignant neoplasm of prostate documented in this encounter Care Teams Referral Specialist Relationship Specialty Start Date End Date Bobby Das MD PCP - General 07/06/[address] [place] [address] ,[address] [place] [address] documented as of this encounter
--- OUTSIDE RECORDS SUMMARY | 2022-07-22 10:34 | XMS_ITS | Encounter Summary ---
:1940 Author Organization [facility] Address [address] [place] [address] Care Team Providers Name Role Phone Bobby Das MD Primary Care Provider Encounter Details Date Type Department Care Team Description 10/29/2017 Results Only [facility] Erlin José MD Urology - [address] [address] [place], [place] [phone] (Wo rk) Social History Tobacco Use Types Packs/Day Years Used Date Never Assessed Sex Assigned at Date Recorded Not on file documented as of this encounter Plan of Treatment Not on filedocumented as of this encounter Procedures Procedure Name Priority Date/Time Associated Diagnosis Comme [facility] SURGICAL PATHOLOGY Routine 10/29/2017 8:21 EST Re sults for this procedure are i n the results section. documented in this encounter Results SURGICAL PATHOLOGY (10/29/2017 8:21 EST) Pathology SURGICAL PATHOLOGY REPORT [facility] MEDICAL Report: Reports generated via electronic interface conta in original data; CENTER LABORATORY however they are lacking the format of the original re port. SERVICES Caution should be taken when reading/interpreting unfo rmatted reports. Name: ? ETTA BAH ? Accession #: ? [id number] ? : ? 1940 (Age: 77) ??M [...] to 6: Prognostic Grad e Group I [place] score 3+4=7: Prognostic Grade Group II [place] score 4+3=7: Prognostic Grade Group III [place] score 8: Prognostic Grade Group IV [place] score 9-10: Prognostic Grade Group V References for Prognostic Grade Groups: J Clin Hercules 2012;30:5621-9836 Joey CASTAÑEDA. The [place] Grading System (A Comple te Guide for Pathologists and Clinicians), LWW, 2013 Serg PM, Shell PW, Edward AW, Joey JI. Progno stic [place]red Grade Grouping: Data based on the modified [place] scoring s yste. BJU Int 2013;111:753-760 A. [...] leason pattern: ? Grade 3 ?- ??Secondary [place] pattern: ? Grade 3 ?- ??Total Gle [...] of 2 cores. ? - Global tumor [place] score: ?3 + 4 = 7 (30% [...] Organization Address City/State/ZIP Code Phon e Number [facility] [address] [place] [address] SERVICES documented in this encounter Visit Diagnoses Not on filedocumented in this encounter Care Teams Social And Human Services Assistant Relationship Specialty Start Date End Date Bobby Das MD PCP - General 07/06/[address] [place] [address] ,[address] [place] [address] documented as of this encounter
--- OUTSIDE RECORDS SUMMARY | 2022-07-22 10:34 | XMS_ITS | Encounter Summary ---
:1940 Author Organization [facility] Address [address] [place] [address] Care Team Providers Name Role Phone Bobby Das MD Primary Care Provider Reason for Visit Reason Comments Cancer Encounter Details Date Type Department Care Team Description 02/06/2018 Radiation Therapy [facility] Lynn Vargas RN Malignant neoplasm Visit Radiation Oncology [address] [facility] ([facility]) ([facility]) [address] [place] [address] (Primary Dx) [place] [phone] Social History Tobacco Use Types Packs/Day Years [...] encounter diagnosis was Malignant neoplasm of prostate ([facility]). Assessment: Assessment Completed By: Lynn Vargas RN [...] Visit Diagnoses Diagnosis Malignant neoplasm of prostate ([facility]) (HCC) - Primary Malignant neoplasm of prostate documented in this encounter Care Teams Ping Pong Table Assembler Relationship Specialty Start Date End Date Bobby Das MD PCP - General 07/06/[address] [place] [address],[address] [place] [address] documented as of this encounter
--- OUTSIDE RECORDS SUMMARY | 2022-07-22 10:34 | XMS_ITS | Encounter Summary ---
:1940 Author Organization [facility] Address [address] [place] [address] Care Team Providers Name Role Phone Bobby Das MD Primary Care Provider Reason for Visit Reason Comments Prostate Cancer Encounter Details Date Type Department Care Team Description 02/10/2018 Radiation Therapy [facility] Aries Gutierrez alignant neoplasm Visit Radiation Oncology Felix EAST MD of [facility] - [address] ([facility]) (Primary [address] [facility] Dx) [facility], [address] [place] [address] [address] [place] [address] Social History Tobacco Use Types [...] encounter diagnosis was Malignant neoplasm of prostate ([facility]). Assessment: Assessment Completed By: Felix Gutierrez MD (02/10/18 2950) Radiation Therapy: Cumulative RT Dose 2400 cGy [...] Changes: None Sj Gutierrez MD Radiation Oncology [phone] (office) [phone] (pager) documented in this encounter Plan of Treatment Not on filedocumented as of this encounter Visit Diagnoses Diagnosis Malignant neoplasm of prostate (HCC-CMS) (HCC) - Primary Malignant neoplasm of prostate documented in this encounter Care Teams Lumber Material Handler Relationship Specialty Start Date End Date Bobby Das MD PCP - General 07/06/[address] [place] [address] ,[address] [place] [address] documented as of this encounter
--- OUTSIDE RECORDS SUMMARY | 2022-07-24 09:18 | XMS_ITS | Encounter Summary ---
:1940 Author Organization [facility] [place] [address] Care Team Providers Name Role Phone Bobby Das MD Primary Care Provider Encounter Details Date Type Department Care Team Description 06/25/2022 Hospital Encounter [facility]ology at [facility]ovani Ponce, [facility] [place] [address] [facility] [phone] [place] [address] Social History Tobacco [...] the day after the procedure, use an ujbc-wvq-wukljxp spray to numb your throat. Sucking on [...] occurs, please contact your Doctor. Please call [phone] before 8pm Mon-Fri with problems, questions or concerns. If you call after 8pm or on weekends, call the Hospital at [phone] and ask to speak to the [employer] software application tester and the chief substation operator will contact that person for you. [...] any problems. Where can you learn more? [facility] View your After Visit Summary and more online at [email or web address] If you would like to provide feedback about your hospital experience, please call the Office of Patient and Family Relations at . If you have received this After Visit Summary in error, please immediately return it in person to the department, or notify the [facility] Privacy Office by calling toll free at between the hours of 8AM and 5PM to arrange for our retrieval of the documents at no cost to you. Content Version: 12.2 ?? 0824-1624 [employer]. Care instructions adapted under license by [facility]. If you have questions about a medical condition or this instruction, always ask your healthcare professional. [employer] disclaims any warranty or liability for your [...] occurs, please contact your Doctor. Please call [phone] before 8pm Mon-Fri with problems, questions or concerns. If you call after 8pm or on weekends, call the Hospital at [phone] and ask to speak to the [employer] software application tester and the chief substation operator will contact that person for you. When should you call for help? Call [phone] anytime you think you may need emergency [...] any problems. Where can you learn more? [facility] View your After Visit Summary and more online at [email or web address] If you would like to provide feedback about your hospital experience, please call the Office of Patient and Family Relations at . If you have received this After Visit Summary in error, please immediately return it in person to the department, or notify the [facility] Privacy Office by calling toll free at between the hours of 8AM and 5PM to arrange for our retrieval of the documents at no cost to you. Content Version: 12.2 ?? 8845-3208 [employer]. Care instructions adapted under license by [facility]. If you have questions about a medical condition or this instruction, always ask your healthcare professional. [employer] disclaims any warranty or liability [...] 21 (FLONASE) 50 mcg/actuation Nare route daily Elizabeth, Suspension as needed. fluorouraciL (EFUDEX) 5 % [...] ischemia I99.8 ??? Coronary artery disease involving [place] coronary artery of [place] heart without angina [id number] ??? HFrEF (heart failure with reduced ejection [...] MD [facility] GASTROENTEROLOGY DEPT [place], [place] [address] (Wo rk) 09/05/2022 Appointment Cardiology Trinity Reid MD [facility] CARDIOLOGY [place], [place] [address] (Wo rk) 09/05/2022 Office Visit Cardiology Trinity Reid MD [facility] ER [address] CARDIOLOGY [place] [address] (Wo [...] Component Value Ref Test Analysis Performed At [facility] Range Method Time Signature UPPER GI [facility] ENDOSCOPY Endoscopy Procedure Date: 06/25/2022 10:33 AM ? Patient Name: Koko Zamora ? Date of : 1940 ? Age: 81 ? Order #: [id number] ? Instrument Name: [id number]- [id number] ? Procedure: ? Upper GI endoscopy Indications: ? Recent gastrointestinal bleeding Providers: ? Giovani Ponce, Isi puente, ? Brissa Vee RN, Juvenal ? Confalone Referring MD: ?[facility]: ? Propofol per Anesthesia Complications: [...] Endoscope w as ? introduced through the [facility], and ? advanced to the second par [...] At [facility] Method Time Signature COLONOSCOPY [facility] Endoscopy Procedure Date: 06/25/2022 10:33 AM ? Patient Name: Koko Zamora ? Date of : 1940 ? Age: 81 ? Order #: [id number] ? Instrument Name: [id number]- [id number] ? Procedure: ? Colonoscopy Indications: ? Gastrointestinal [...] Procedure Code(s): ? --- Professional --- ? 95241, Colonoscopy, flexib le; with ? control of [...] of sigmoid ? colon CPT copyright 202 [employer]. All rights reserved. The codes documented in this report are preliminary and upon tax collector review may be revised to meet current [...] Procedure) documented in this encounter Care Teams Pressure Welder Relationship Specialty Start Date End Date Bobby Das MD PCP - General 10/02/[address] [place] [address] [place] [id number] documented as of this encounter
--- OUTSIDE RECORDS SUMMARY | 2022-07-24 09:18 | XMS_ITS | Clinical Summary ---
:1940 Author Organization [facility] [place] [address] Care Team Providers Name Role Phone Bobby [...] 04/12/2021 Active (FLONASE) 50 mcg/actuation Each Nare Moose, Suspension route daily as needed. fluorouraciL (EFUDEX) [...] Problem Noted Date Coronary artery disease involving [place] coronary priscilla ry of [place] heart 06/13/2022 without angina pectoris Overview: 05/20/22 [...] therapy possibly including AV node ablation and PACKAGING ASSOCIATE-D. Permanent atrial fibrillation 06/13/2022 Last Assessment & [...] consideration of AV no de ablation and PACKAGING ASSOCIATE-D Limb ischemia 05/15/2022 History of basal cell carcinoma 05/31/2014 Basal cell carcinoma 03/29/2014 Verruca vulgaris 03/29/2014 AK (actinic keratosis) 03/29/2014 GIB (gastrointestinal bleeding) 06/28/2011 Overview: Secondary to 3-4 ASA/day, required admis lynette and blood transfusion MVP (mitral valve prolapse) s/p repair 06/28/2011 Overview: Surgery done at [facility] in 2 001 Hypertriglyceridemia 06/28/2011 Adhesive capsulitis of L shoulder 06/28/2011 Alcohol use 06/28/2011 Encounters Date Type Specialty Care Team Description 07/01/2022 Telephone Dermatology Zaianb Sommer CMA 06/25/2022 Surgery Gastroenterology Giovani Ponce [...] Hicks MD Coronary priscilla ry disease involving [place] coronary artery of [place] heart without angina pectoris 06/19/2022 Telephone Cardiology Kourtney Jimenez RN 06/17/2022 Orders Only Dermatology Loretta Cohen Basal cell c carlos Paez MD (BCC) of right forehead 06/13/2022 Office Visit Cardiology Jeanette, Coronary artery disease involving [place] coronary artery of [place] heart without angina pectoris; Alan Hicks MD [...] Gastroenterology Elmer Johnson MD Drost, Alexander J, PRODUCTION HELPER 05/31/2022 Surgery Gastroenterology Giovani Ponce UPPE R GI M, MD ENDOSCOPY 05/31/2022 - Hospital Encounter Dominique Hinds GIB (g astrointestinal 06/02/2022 MD bleeding) (Primary Dx) Mahendra Victor MD Friedman, Harley P, MD Ratanamaneechat, Suphagaphan, MD 05/31/2022 Office Visit Vascular Surgery DavinaStephanie bellamyy Dizzy; B, [address] MAN Atrial fibrilla tion, unspecified type; SOB (shortness of breath) 05/28/2022 Telephone Vascular Surgery Dominique Bolivar, DION 05/24/2022 Telephone Cardiology Kourtney Jimenez RN 05/21/2022 Hospital Encounter Cardiology Paroxysma l atrial fibrillation 05/20/2022 Surgery Cardiology Abundio Servin MD CATHETERIZATION 05/15/2022 Anesthesia Event Surgery Cari Hernandez MD Patel, Shreena K, PRODUCTION HELPER 05/15/2022 Surgery Surgery Fito Summers EMBOLECTOMY Elton [...] MD [facility] GASTROENTEROLOGY DEPT [place], [place] [address] (Wo rk) 09/05/2022 Appointment Cardiology Trinity Reid MD [facility] CARDIOLOGY [place], [place] [address] (Wo rk) 09/05/2022 Office Visit Cardiology Trinity Reid MD [facility] CARDIOLOGY [place], [place] [address] (Wo rk) Health Maintenance Due [...] Component Value Ref Test Analysis Performed At [facility] Range Method Time Signature UPPER GI [facility] PROVATION ENDOSCOPY Endoscopy Procedure Date: 06/25/2022 10:33 AM ? Patient Name: Koko Bah ? Date of : 1940 ? Age: 81 ? Order #: [id number] ? Instrument Name: [id number]- [id number] ? Procedure: ? Upper GI endoscopy Indications: [...] [facility] Method Time Signature COLONOSCOPY [facility] PROVATION Endoscopy Procedure Date: 06/25/2022 10:33 AM ? Patient Name: Koko Bah ? Date of : 1940 ? Age: 81 ? Order #: [id number] ? Instrument Name: [id number]- [id number] ? Procedure: ? Colonoscopy Indications: ? Gastrointestinal [...] Procedure Code(s): ? --- Professional --- ? 03036, Colonoscopy, flexib le; with ? control of [...] of sigmoid ? colon CPT copyright 2020 [employer]. All rights reserved. The codes documented in this report are preliminary and upon drug abuse technician review may be revised to meet [...] Component Value Ref Test Analysis Performed At [facility] Range Method Time Signature VB Text Department: Vascular Surgery Lab VASCUBASE Report Patient: [id number] (KOKO BAH) CPT: 02249 Referring Physician: FITO SUMMERS ?? 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 Diabetes mellitus: no Findings: Right [...] Summers MD VASCULAR ORDERABLES Performing Organization Address City/[facility]/ZIP Code Phon e Number VASCUBASE Specimen to [...] MD PATHOLOGY/CYTOLOGY ORDERABLE S Performing Organization Address [facility] [place] [address] Surgical Pathology Report (06/10/2022 11:43 AM EDT) Component Value Ref Test Analysis Performed At [facility] Range Method Time Signature Surgical [id number] ? Location: [facility] Report The signing pathologist has (i) examined the relevant preparation(s) for the [facility] specimen(s) and (ii) rendered or confirmed the diagnosis(es) . HOSPITAL LABORATORY . ?Surgic al Pathology DIAGNOSIS Right lateral eyebrow, skin shave biopsy: - ??Basal cell carcinoma, no dular pattern, transected at the peripheral and deep specimen edges Electronically signed by: ?Delroy CARCAMO, PhD, Ian Verified: ??06/12/2022 14:33 ??Dermatopathologist Performed at: ??-[facility] Dept. of Pathology, [place], [place] SPECIMEN(S) SUBMITTED A - right lateral [...] Organization Address City/State/[place] [address] (ABNORMAL) Hemogram (06/02/2022 8:20 AM EDT)Only the most recent of14 results within the time period is included. Analysis Performed At Patho logist Time Signature WBC 7.2 4.0 - 9.5 [facility] [employer] x10(3)/[facility] LABORATORY RBC 2.74 (L) 4.58 - [facility] XIAO 5.54 [facility] x10(6)/[facility] LABORATORY Hemoglobin 8.7 (L) 13.7 - [place] 16.5 g/dL [facility] LABORATORY Hematocrit 25.7 (L) 40.5 - [facility] XIAO 48.5 % [facility] LABORATORY MCV 93.8 (H) 82.9 - [facility] XIAO 93.1 [facility] LABORATORY MCH 31.8 27.5 - [employer] 32.1 pg [facility] LABORATORY MCHC 33.9 32.0 - [facility] XIAO 35.7 g/dL [facility] LABORATORY Platelets 260 145 - 357 [place] [employer] x10(3)/[facility] LABORATORY RDWSD 51.0 (H) 36.0 - [place] 45.0 [facility] LABORATORY RDWCV 14.9 (H) 11.4 - [facility] XIAO 13.8 % [facility] LABORATORY MPV 10.0 7.6 - 12.9 [facility] nRBC % Auto 0.0 % [facility] LABORATORY nRBC Abs Auto 0.000 0.000 - [facility] 0.000 [facility] x10(3)[facility] LABORATORY Specimen Anatomical Collection Method Collection Time Receive d Time (Source) Location / / Volume Laterality Blood 06/02/2022 8:20 AM 8:25 EDT AM EDT Resulting Agency Comment Spec In Lab Kurt Ames MD HEMATOLOGY ORDERABLES Performing Organization Address City/State/[place] [address] (ABNORMAL) Differential, Automated (06/02/2022 8:20 AM EDT)Only the most recent of14 resultswithin the time period is included. P athologist Signature Neutrophils % 61.3 % [facility] LABORATORY Neutr Abs (ANC) 4.44 1.70 - [facility] 6.10 [facility] x10(3)[facility] LABORATORY Lymphocytes % 25.2 % [facility] LABORATORY Lymphocytes Abs 1.8 0.9 - 3.2 [facility] x10(3)[facility] LABORATORY Monocytes % 10.0 % [facility] LABORATORY Monocyte Abs 0.7 0.3 - 0.9 [facility] x10(3)[facility] LABORATORY Eosinophils % 2.1 % [facility] LABORATORY Eosinophils Abs 0.2 0.0 - 0.4 [facility] x10(3)[facility] LABORATORY Basophils % 0.7 % [facility] LABORATORY Basophils Abs 0.0 0.0 - 0.1 [facility] x10(3)[facility] LABORATORY Immature Gran % [...] Organization Address City/State/ZIP Code Phon e Number [address] Heparin (unfractionated) Level (06/02/2022 6:30 AM EDT)Only the most recent of11 resultswithin the time period is included. athologist Signature Heparin UFH 0.39 IU/mL [facility] LABORATORY Comment: Heparin (anti-Xa) levels [...] Organization Address City/State/ZIP Code Phon e Number [address] Magnesium (06/02/2022 12:30 AM EDT)Only the most recent of5 resultswithin the time period is included. athologist Signature Magnesium 0.83 0.69 - 1.07 [facility] mmol/L [facility] LABORATORY Specimen Anatomical Collection Method Collection Time Receive d Time (Source) Location / / Volume Laterality Blood 06/02/2022 12:30 06/02/2022 AM EDT 12:40 AM EDT Resulting Agency Comment Spec In Lab Mahendra Victor MD CHEMISTRY ORDERABLES Performing Organization Address City/State/[place] [address] (ABNORMAL) Basic Metabolic Panel (non-fasting) (06/02/2022 12:30 AM EDT)Only the most recent of6 resultswithin the time period is included. athologist Signature Glucose Lvl 151 65 - 199 [facility] mg/dL [facility] LABORATORY Comment: Diabetes: >=200 mg/dL plus symp toms BUN 12 10 - 20 mg/dL [facility] LABORATORY Creatinine 0.71 (L) 0.80 - 1.50 mg/dL [facility] LABORATORY Sodium 142 135 - 145 mmol/L [facility] LABORATORY Potassium 3.8 3.5 - 5.0 mmol/L [facility] [...] Anion Gap 10 5 - 15 mmol/L [facility] LABORATORY Calcium 8.1 (L) 8.5 - 10.5 mg/dL [facility] LABORATORY Estimated GFR 93 [...] Organization Address City/State/[place] [address] SCAN DOC: TELEMETRY STRIPS (06/01/2022 8:37 PM EDT)Only the most recent of8 resultswithin the time period is included. Narrative This result has an attachment that is no t available. Unknown MEDIA MGR SCAN EXT ORDR/RSLT (ABNORMAL) Urinalysis with reflex Culture (06/01/2022 4:00 AM EDT)Only the most recent of2 resultswithin the time period is included. [facility] gist Method Time Signature Glucose UA 500 Negative [facility] (Critical) mg/dL [facility] LABORATORY Comment: Urinalysis result NOT critical [...] [facility]ARE [facility] LABORATORY Nitrite UA Negative Negative [facility] LABORATORY Leukocytes UA Negative Negative mcL [facility] LABORATORY Appearance UA Clear Clear [place] XIAO [facility] LABORATORY Spec [place] UA >=1.030 (A) 1.005 - 1.030 [facility] LABORATORY Color UA Yellow Yellow [facility] LABORATORY Culture Reflexed No [facility] LABORATORY Specimen Anatomical Collection Method Collection Time Receive d Time (Source) Location / / Volume Laterality Clean Catch 06/01/2022 4:00 AM 4:26 Urine EDT AM EDT Resulting Agency Comment Spec In Lab Mahendra Victor MD URINE ORDERABLES Performing Organization Address City/State/[place] [address] Transfuse RBC (05/31/2022 7:36 PM EDT) Dominique Hinds MD NURSING TREATMENT ORDERABLES - BLOOD ADMIN UPPER GI ENDOSCOPY (05/31/2022 3:37 PM EDT) Component Value Ref Test Analysis Performed At [facility] Range Method Time Signature UPPER GI [facility] PROVATION ENDOSCOPY Endoscopy Procedure Date: 05/31/2022 3:37 PM ? Patient Name: Koko Bah ? Date of : 1940 ? Age: 81 ? Order #: [id number] ? Instrument Name: [id number] ? Procedure: ? Upper GI endoscopy Indications: [...] Endoscope w as ? introduced through the [facility], and ? advanced to the [...] Procedure Code(s): ? --- Professional --- ? 26879, Esophagogastroduode noscopy, ? flexible, transoral; with control [...] stomach ? and duodenum CPT copyright 2020 [employer] [place] [employer]. All rights reserved. The codes documented in this report are preliminary and upon drug abuse technician review may be revised to meet [...] who have questions please contact the health ocular care aide that requested your imaging first. ? Narrative 05/31/2022 2:39 PM EDT EXAMINATION: CT ABDOMEN AND PELVIS [facility] CONTRAST (GI BLEED) CLINICAL HISTORY: Significant Hb drop. U nknown source. has had a [facility] with stent placed and revascularization of [...] enlarged lymph nodes. Vasculature: Patent common iliac, vocational teacher al iliac, and common femoral arteries [...] the original. EXAMINATION: CT ABDOMEN AND PELVIS [facility] (GI BLEED) CLINICAL HISTORY: Significant Hb [...] enlarged lymph nodes. Vasculature: Patent common iliac, vocational teacher al iliac, and common femoral arteries [...] ho have questions please contact the health ocular care aide that requested your imaging first. Dominique Hinds MD IMG CT ORDERABLES Type and Screen Validity (05/31/2022 1:43 PM EDT)Only the most recent of2 resultswithin the time period is included. [facility] Method Time Signature T&S only valid [facility] LABORATORY Comment: This Type and Screen result is only valid at the [facility] Specimen Anatomical Collection Method Collection Time Receive d Time (Source) Location / / Volume Laterality Blood 05/31/2022 1:43 PM 2 1:57 EDT PM EDT Resulting Agency Comment Spec In Lab Dominique Hinds MD BLOOD BANK ORDERABLES Performing Organization Address City/State/[place] [address] ABORH Recheck Status (05/31/2022 1:43 PM EDT)Only the most recent of2 results within the time period is included. [facility] Method Time Signature ABORH Type Completed [facility] LABORATORY Specimen Anatomical Collection Method Collection Time Receive d Time (Source) Location / / Volume Laterality Blood 05/31/2022 1:43 PM 2 1:57 EDT PM EDT Resulting Agency Comment Spec In Lab Dominique Hinds MD BLOOD BANK ORDERABLES Performing Organization Address City/[facility]/[place] [address] ABO/Rh Typing (05/31/2022 1:43 [...] MD BLOOD BANK ORDERABLES Performing Organization Address [facility]/[place] [address] Antibody screen (05/31/2022 1:43 PM EDT)Only the most recent of2 resultswithin the time period is included. Patholo gist Method Time Signature Ab Screen Negative [facility] LABORATORY Expires at 06/03/2022 [facility] [id number] on: [facility] LABORATORY Specimen Anatomical Collection Method Collection Time Receive d Time (Source) Location / / Volume Laterality Blood 05/31/2022 1:43 PM 2 1:57 EDT PM EDT Resulting Agency Comment Spec In Lab Dominique Hinds MD BLOOD BANK ORDERABLES Performing Organization Address City/[facility]/ZIP Code Phon e Number [address] Prepare RBC (05/31/2022 1:35 [...] Organization Address City/State/[place] [address] (ABNORMAL) BLOOD GAS 2 VENOUS (05/31/2022 11:24 AM EDT) P athologist Signature pH Marco Antonio 7.38 7.32 - [facility] 7.42 [facility] LABORATORY pCO2 Marco Antonio 40 (L) 41 - 51 [facility] LABORATORY pO2 Marco Antonio 18 (L) 25 - 40 [facility] LABORATORY HCO3 Marco Antonio 23.3 mmol/L [facility] LABORATORY BE Marco Antonio -1.8 mmol/L [facility] LABORATORY Hgb Blood Gas 7.0 (L) 13.7 - [facility] 16.5 g/dL [facility] LABORATORY O2HB Marco Antonio 24.3 % [facility] LABORATORY COHB Marco Antonio 1.4 % [facility] LABORATORY Comment: Nonsmokers: 0.5-1.5% COHB Smokers: Variable, but usually less than 10% Toxic: 20-30% COHB Lethal: Greater than 60% COHB METHB Marco Antonio 1.7 (H) <=1.5 % [facility] LABORATORY Na Whole Blood 137 135 - 145 mmol/L [facility] LABORATORY K Whole Blood 3.9 3.5 [...] [facility] LABORATORY BGas Source Venous [facility] LABORATORY Specimen Anatomical Collection Method Collection Time Receive d Time (Source) Location / / Volume Laterality Blood 05/31/2022 11:24 05/31/2022 AM EDT 11:24 AM EDT Dominique Hinds MD CHEMISTRY ORDERABLES Performing Organization Address City/[facility]/ZIP Code Phon e Number [address] TSH [place] (05/31/2022 11:20 AM EDT) P athologist Signature TSH 1.67 0.27 - 4.20 [facility] mc[facility]/mL [facility] LABORATORY Comment: Reference Interval (mcIU/mL): Females: ??First Trimester: 0.23-3.88 ??Second Trimester: 0.22-3.90 ??Third Trimester: 0.44-4.66 Specimen Anatomical Collection Method Collection Time Receive d Time (Source) Location / / Volume Laterality Blood 05/31/2022 11:20 05/31/2022 AM EDT 11:28 AM EDT Resulting Agency Comment Spec In Lab Dominique Hinds MD CHEMISTRY ORDERABLES Performing Organization Address City/[facility]/ZIP Code Phon e Number [address] XR Chest PA & [...] who have questions please contact the health ocular care aide that requested your imaging first. ? Narrative [...] ho have questions please contact the health ocular care aide that requested your imaging first. Dominique Hinds MD IMG DX ORDERABLES Blue Tube HOLD (05/31/2022 10:50 AM EDT) athologist Signature Blue Hold Sample in [facility] lab. [facility] LABORATORY Specimen Anatomical Collection Method Collection Time Receive d Time (Source) Location / / Volume Laterality Blood Venous Draw / 05/31/2022 10:50 05/31/2022 Unknown AM EDT 11:05 AM EDT Brittany Ramirez MD HEMATOLOGY ORDERABLES Performing Organization Address City/State/[place] [address] Troponin (05/31/2022 10:50 AM EDT) athologist Signature Troponin-T <0.01 0.00 - 0.00 [facility] ng/mL [facility] LABORATORY Comment: The 99th percentile for Troponin T is le ss than 0.01 ng/mL, any detectable cTnT concentration using this assay should be considered elevated. According to the third universal definit ion of myocardial infarction the following criteria with a clinical prese ntation consistent with acute myocardial ischemia meets the diagnosis for a myocardial infarction (PA). Detection of a rise and/or fall of [...] additional sample may be indicated. Reference: Third Moore Definition of Myocardial Infarction. Journal of the [place] 2012;60:1581-98 Specimen Anatomical Collection Method Collection Time Receive d Time (Source) Location / / Volume Laterality Blood 05/31/2022 10:50 05/31/2022 AM EDT 11:03 AM EDT Resulting Agency Comment Spec In Lab Dominique Hinds MD CHEMISTRY ORDERABLES Performing Organization Address City/State/ZIP Code Phon e Number [address] Phosphorus (05/31/2022 10:50 AM EDT)Only the most recent of2 resultswithin the time period is included. P athologist Signature Phosphorus 3.2 2.5 - 4.5 [place] mg/dL [facility] LABORATORY Specimen Anatomical Collection Method Collection Time Receive d Time (Source) Location / / Volume Laterality Blood 05/31/2022 10:50 05/31/2022 AM EDT 11:03 AM EDT Resulting Agency Comment Spec In Lab Dominique Hinds MD CHEMISTRY ORDERABLES Performing Organization Address City/[facility]/ZIP Code Phon e Number [address] (ABNORMAL) pro-Brain Natriuretic Peptide (05/31/2022 10:50 AM EDT) P athologist Signature ProBNP 1,077 (H) <=449 [place] pg/mL [facility] LABORATORY Specimen Anatomical Collection Method Collection Time Receive d Time (Source) Location / / Volume Laterality Blood 05/31/2022 10:50 05/31/2022 AM EDT 11:03 AM EDT Resulting Agency Comment Spec In Lab Dominique Hinds MD CHEMISTRY ORDERABLES Performing Organization Address City/[facility]/ZIP Code Phon e Number [address] Lipase (05/31/2022 10:50 AM EDT) P athologist Signature Lipase 41 0 - 60 [facility] XIAO unit/L [facility] LABORATORY Specimen Anatomical Collection Method Collection Time Receive d Time (Source) Location / / Volume Laterality Blood Venous Draw / 05/31/2022 10:50 05/31/2022 Unknown AM EDT 11:11 AM EDT Resulting Agency Comment Spec In Lab Zain Champion MD CHEMISTRY ORDERABLES Performing Organization Address City/[facility]/[place] [address] (ABNORMAL) Hepatic Function Panel (05/31/2022 10:50 AM EDT) Analysis Performed At Patho logist Time Signature Total Protein 6.4 6.1 - 8.0 [place] g/dL [facility] LABORATORY Albumin 4.1 3.2 - 5.2 [place] g/dL [facility] LABORATORY AST 24 0 - 39 [facility] XIAO unit/L [facility] LABORAT[facility] ALT 44 0 - 55 [facility] XIAO unit/L [facility] LABORATORY Alk Phos 63 40 - 130 [facility] unit/L [facility] LABORATORY Total <0.2 (L) 0.2 - 1.3 [place] Bilirubin mg/dL [facility] LABORATORY Bili, Direct 0.1 0.0 - 0.3 [facility] XIAO mg/dL [facility] LABORATORY Specimen Anatomical Collection Method Collection Time Receive d Time (Source) Location / / Volume Laterality Blood Venous Draw / 05/31/2022 10:50 05/31/2022 Unknown AM EDT 11:11 AM EDT Resulting Agency Comment Spec In Lab Zain Champion MD CHEMISTRY ORDERABLES Performing Organization Address City/[facility]/[place] [address] EKG 12 Lead (05/31/2022 10:11 AM EDT)Only the most recent of3 resultswithin the time period is included. Component Value Ref Range Test Analysis Performed Pathologis t Method Time At Signature Ventricular rate 106 BPM MUSE SYSTEM QRS Duration 122 ms MUSE SYSTEM Q-T Interval 368 ms MUSE SYSTEM QTC Calculated 488 ms MUSE SYSTEM (Bezet) Calculated R [place] -43 degrees MUSE SYSTEM Calculated T [place] 109 degrees MUSE SYSTEM INTERPRETATION Atrial fibrillation with rapid ventricular response MUSE SYSTEM Left axis deviation Minimal voltage criteria for LVH, may be normal variant ( [place] product ) Cannot rule out Anterior infarct , age undetermined Abnormal ECG When compared with ECG of 20-MAY-2022 19:04, No significant change was found I personally reviewed the tracing and edited the fellows int erpretation Confirmed by fellow MD Mike, [place] ([id number]) on 022 8:36:21 PM Confirmed by MD [...] Volume Narrative 05/20/2022 7:09 PM EDT ?[facility] ? Cardiac Cathete rization/Intervention Report ? Patient Name: Koko Bah. ? Procedure Date: 05/20/2022 ? A #: [id number] ? Primary Physician: Malathi, Abundio S ? Case #: [id number] ? File Name: [id number] ? Catheterization Order Number: [id number] ? [facility] ? Final Report [place], [place] ? Patient Name: ? Koko J. Klarissa uson ? ID#: ?[id number] ? : ?1940 ? Procedure Date: ? [...] procedure was Urgent. The indication for ?the rn lab visit is cardiomyo nita. Chest pain symptom [...] ?3.5 guiding catheter and a 3.5 Fr [facility] [address] ??20 Mhz. ??Imaging ?was successful. ??Image [...] A premounted 2. 75 x 30 mm [place] (AMPARO) was deployed ? with a maximum [...] ?modification of this regimen. C onsult [facility] Interventional Cardiology for ?questions. ?The 1 year [...] note might be different from the original. [facility] Cardiac Catheterization/Intervention Re port Patient Name: Koko Bah Procedure Date: 05/20/2022 A #: [id number] Primary Physician: Abundio Servin Case #: File Name: [id number] Catheterization Order Number: [id number] [facility] Administrative Manager [facility] Final Report [place], [place] Patient Name: Koko Bah ID#: [id number] : 1940 Procedure Date: May 20, 2022 [...] designated a s ASA Class IV. The [facility] clinical frailty scale is 3: [...] e was Urgent. The indication for the rn lab visit is cardiomyopathy. C hest pain symptom [...] 3.5 guiding catheter and a 3.5 Fr [facility] [address] 20 Mhz. Imaging was successful. Image [...] atmospheres. A premounted 2.75 x 30 mm [place] (AMPARO) was deployed with a maximum inflation [...] require modification of this regimen. Consult [facility] Interventional Cardiology for [...] 123 65 - 199 ILDA XIAO mg/dL [facility] Comment: Supplemental ranges: <140 mg/dL before meals <180 mg/dL all other times of the day Specimen Anatomical Collection Method Collection Time Receive d Time (Source) Location / / Volume Laterality Blood 05/20/2022 5:42 PM 2 5:42 EDT PM EDT Fito Summers MD POINT OF CARE TEST ORDERABLE S Performing Organization Address City/State/[place] [address] (ABNORMAL) BMP w/fasting Glucose (05/20/2022 10:50 AM EDT) P athologist Signature Glucose 152 (H) 65 - 99 [facility] Fasting mg/dL [facility] Comment: ?Fasting* Glucose Interpretive C [...] of Diabetes Mellitus, Position Statement from the [place] [employer]. ??Diabete s Care, Volume 33, Supplement 1, Nov 2009 BUN 11 10 - 20 mg/dL [facility] Creatinine 0.63 (L) 0.80 - 1.50 mg/dL [facility] Sodium 137 135 - 145 mmol/L [facility] Potassium 3.6 3.5 - 5.0 mmol/L [facility] [...] Anion Gap 10 5 - 15 mmol/L [facility] Calcium 8.7 8.5 - 10.5 mg/dL [facility] Estimated GFR 97 [...] Summers MD CHEMISTRY ORDERABLES Performing Organization Address City/[facility]/ZIP Code Phon e Number [address] TSH (05/18/2022 8:00 PM EDT) P athologist Signature TSH 2.27 0.27 - 4.20 [facility] mcIU/mL [facility] Comment: Reference Interval (mcIU/mL): Females: ??First Trimester: 0.23-3.88 ??Second Trimester: 0.22-3.90 ??Third Trimester: 0.44-4.66 Specimen Anatomical Collection Method Collection Time Receive d Time (Source) Location / / Volume Laterality Blood 05/18/2022 8:00 PM 8:06 EDT PM EDT Resulting Agency Comment Spec In Lab Fito Summers MD CHEMISTRY ORDERABLES Performing Organization Address [facility] Phon e Number [address] (ABNORMAL) Urinalysis Microscopic Exam [...] Patiño MD URINE ORDERABLES Performing Organization Address City/[facility]/ZIP [facility] Phon e Number [address] XR Chest One View [...] who have questions please contact the health ocular care aide that requested your imaging first. ? Electronically signed by: Tiffanie George MD , [facility] ([phone]), at 05/16/2022 9:27 PM Narrative 05/16/2022 9:27 [...] ho have questions please contact the health ocular care aide that requested your imaging first. Electronically signed by: Tiffanie George MD , [facility] ([phone]), at 05/16/2022 9:27 PM Fito Summers MD IMG DX ORDERABLES ECHOCARDIOGRAM COMPLETE W CONTRAST (05/16/2022 12:49 PM EDT) P athologist Signature EF 28 [facility] Anatomical Region Laterality Modality Cardiac Other Specimen (Source) Anatomical Collection Method Collection Time Re ceived Time Location / / Volume Laterality 05/16/2022 11:22 AM EDT Narrative 05/16/2022 1:54 PM EDT ?[facility] ?[address] ? [place] [address] ?Voice: ?Fax: ? Echocardiogram Report Name: KOKO BAH ?Study Date: 05/16/2022 11:22 AM ? Patient Location: [address] [place], [place] [address] : 1940 ? Height: 67.5 in ? Account: [id number] Age: 81 yrs ? Weight: 176 lb Gender: Male ?BSA: 1.9 m2 Ordering Physician: FITO SUMMERS Referring Physician: MALI FLORIAN Performed By: Jolene Bernard RDCS Exam Location: [facility]. Interpretation Summary Left ventricle is mildly [...] and LV systolic dysfunction are new. Procedure Complete-[id number]. Image enhancement Optiso n was used for [...] ?T APSE_phl: 1.4 cm Doppler TR max aguead: 240.5 cm/sec RVSP(TR): 31.2 mmHg Ao V2 [...] note might be different from the original. [facility] [address] [place] [address] Voice: Fax: Echocardiogram Report Name: KOKO BAH Study Date: 05/2022 11:22 AM Patient Location: [address] [place] [address] : 1940 Height: 67.5 in Account: [id number] Age: 81 yrs Weight: 176 lb Gender: Male BSA: 1.9 m2 Ordering Physician: FITO SUMMERS Referring Physician: MALI FLORIAN Performed By: Jolene Bernard RDCS Exam Location: [facility]. Interpretation Summary Left ventricle is mildly [...] and LV systolic dysfunction are new. Procedure Complete-[id number]. Image enhancement Optiso n was used for [...] Signature pH Art 7.33 (L) 7.35 - [facility] 7.45 [facility] pCO2 Art 41 35 - 45 [facility] LABORATORY pO2 Art 131 (H) 85 - 104 [facility] HOSPITAL LABORATORY HCO3 Art 21.1 20.0 - [facility] 26.0 [facility] mmol/L [facility] BE Art -4.8 (L) -3.0 - 3.0 [facility] mmol/L [facility] Hgb Blood Gas 13.4 (L) 13.7 - [facility] 16.5 g/dL [facility] O2HB Art 96.9 94.0 - [facility] 97.0 % [facility] COHB Art 1.4 % [facility] [...] Organization Address City/State/Z[place] [address] (ABNORMAL) APTT (05/15/2022 12:30 [...] EDT Resulting Agency Comment Spec In Lab [facility] HEMATOLOGY ORDERABLES Performing Organization Address City/[facility]/ZIP [facility] Phon e Number [address] (ABNORMAL) Prothrombin Time (05/15/2022 12:30 PM EDT) athologist Signature PT 12.9 (H) 9.4 - 12.5 [facility] LABORATORY INR 1.1 [facility] [...] EDT Resulting Agency Comment Spec In Lab [facility] HEMATOLOGY ORDERABLES Performing Organization Address City/[facility]/ZIP [facility] [place] [address] Gold Tube HOLD (05/15/2022 12:20 PM EDT) athologist Signature Gold Hold Sample in [facility]. [facility] Specimen Anatomical Collection Method Collection Time Receive d Time (Source) Location / / Volume Laterality Blood No Charge / 05/15/2022 12:20 05/15/2022 Unknown PM EDT 12:20 PM EDT Lc TRIPP CHEMISTRY ORDERABLES Performing Organization Address City/State/[place] [address] CK (05/15/2022 12:00 PM EDT) P athologist Signature CK, Total 87 0 - 200 [facility] unit/L [facility] Specimen Anatomical Collection Method Collection Time Receive d Time (Source) Location / / Volume Laterality Blood Venous Draw / 05/15/2022 12:00 05/15/2022 Unknown PM EDT 12:19 PM EDT Resulting Agency Comment Spec In Lab Fito Summers MD CHEMISTRY ORDERABLES Performing Organization Address City/[facility] [place] [address] Film Library- Storage Only CT Abdomen (05/15/2022 9:32 AM EDT) Specimen (Source) Anatomical Location Collection Method / Collectio n Time Received Time / Laterality Volume Narrative RAD - 05/15/2022 9:32 AM EDT This exam is auto-finalizing. It's purpo se is for storage only. Matt Branham MD [facility] FILM LIBRARY ORDERABLES Performing Organization Address [facility] Code Phon e Number [place] Film Library- Storage Only DX Chest (05/15/2022 9:31 AM EDT) Specimen (Source) Anatomical Location Collection Method / Collectio n Time Received Time / Laterality Volume Narrative RAD - 05/15/2022 9:31 AM EDT This exam is auto-finalizing. It's purpo se is for storage only. Matt Branham MD IM FILM LIBRARY ORDERABLES Performing Organization Address City/[facility]/ZIP Code Phon e Number [place], [place] from Last 3 Months Insurance Payer Benefit Plan / Subscriber ID Effective Phone Address T ype Group Dates MEDICARE MEDICARE PART A [id number] 2007-Pres [id number] [facility] [place] [phone] [facility] [id number] 2007-Pres [phone] [address] [employer] [address] [place] [address] Advance Directives Latest Code Status on File [...] capacity to make decision: Yes Care Teams Licensed Prosthetist Relationship Specialty Start Date End Date Bobby Das MD PCP - General 10/02/[address] [place] [address] [place] [phone]
--- OUTSIDE RECORDS SUMMARY | 2022-07-24 09:18 | XMS_ITS | Encounter Summary ---
:1940 Author Organization [facility] [place] [address] Care Team Providers Name Role Phone Bobby Das MD Primary Care Provider Reason for Referral Consultation (Routine) - Authorized Specialty Diagnoses / Procedures Referred By Contact Refer red To Contact Gastroenterology Diagnoses Adenomatous polyp of colon, unspecified part of colon Colonoscopy 06/25/22, discussed w/Dr. Ponce needs to be seen in clinic to discuss polyp / removal iso plavix & DOAC Isi Celaya MD [facility] Gastro 4l [facility] D [facility] [place] [address] [place] [address] Phone: Fax: Referral ID Status Reason Start Date Expiration Visits Visits Date Requested Authorized [id number] Authorized Consult, 06/25/2022 06/25/2023 1 1 Test & Treat Scheduling Instructions To be seen in ~2mo Encounter Details Date Type Department Care Team Description 06/25/2022 Orders Only Gastroenterology at [facility] Isi Celaya Adenomatous polyp of [facility] Bobby Mera [place], [place] [address] [facility] part of colon [phone] [facility] [place] [address] Social History Tobacco Use Types Packs/Day Years [...] [facility] DR GASTROENTEROLOGY DEPT [place] [phone] (Wo rk) 09/05/2022 Appointment Cardiology Trinity Reid MD [facility] CARDIOLOGY [place], [place] [address] (Wo rk) 09/05/2022 Office Visit Cardiology Trinity Reid MD [facility] CARDIOLOGY [place], [place] [address] (Wo rk) Scheduled Referrals Name Type Priority Associated Order Schedule Diagnoses Referral to Outpatient Routine Adenomatous polyp Ordered: Gastroenterology Referral of colon, 06/25/2022 unspecified part of colon documented as of this encounter Visit Diagnoses Diagnosis Adenomatous polyp of colon, unspecified part of colon documented in this encounter Care Teams Health Sciences Dean Relationship Specialty Start Date End Date Bobby Das MD PCP - General 10/02/[address] [place] [address] [place] [phone] documented as of this encounter
--- OUTSIDE RECORDS SUMMARY | 2022-07-24 09:18 | XMS_ITS | Encounter Summary ---
:1940 Author Organization [facility] [place] [address] Care Team Providers Name Role Phone Abby Das MD Primary Care Provider Encounter Details Date Type Department Care Team Description 06/25/2022 Anesthesia Event [facility]ology [place] [facility] Abby Alfaro MD [facility] [place] [address] [facility] David Lewis CRNA [facility] [place] [address] [place] [address] Anesthesia Record Procedure Summary Procedure Name [...] vein (antecubital fossa), Mame Peterson RN left; tflp-gin-dqrccj catheter system; 18 gauge; Present on admission PIV 06/25/22; 1046; great 06/25/22 1046 by saphenous vein (medial side of Mame Peterson RN leg), right; amam-kqd-gybrcl catheter system; Anatomical Landmarks; 18 gauge; Present [...] Procedure Summary Date: 06/25/22 Room / Location: [facility] ENDO 4 / [facility] ENDOSCOPY Anesthesia Start: 1101 Anesthesia Stop: 1202 Procedures: EGD, UPPER GI ENDOSCOPY (N/A Trunk) COLONOSCOPY; W CONTROL OF BLEEDING, ANY METHOD (N/A Trunk) SMALL BOWEL ENTEROSCOPY (N/A Trunk) Diagnosis: (melena +./-) Surgeons: Giovani Ponce MD Responsible Provider: Abby Alfaro MD Anesthesia Type: MAC ASA Status: 3 All Anesthesia Providers: Anesthesiologist: Abby Alfaro MD FRENCH PASTRY COOK: David Gill CRNA Vitals Value Taken Time BP 102/85 06/25/22 1240 Temp Pulse Resp 16 06/25/22 1220 SpO2 95 % 06/25/22 1245 Pain Level 0 06/25/22 1220 Vitals shown include unvalidated device data. Patient Location: PACU/[facility] Level of Consciousness: Awake and Alert [...] Date Noted ??? Coronary artery disease involving [place] coronary artery of [place] heart without angina pateouep95/04/2022 ??? HFrEF (heart failure with reduced ejection [...] IR Biopsy Spine 07/20/2019 Abby Marshall MD [facility] INTERVENTIONL RAD ??? IR VERTEBROPLASTY LUMBAR MULTIPLE LEVELS 07/20/2019 IR Vertebroplasty Lumbar Multiple Levels 07/20/2019 Abby Marshall MD [facility] INTERVENTIONL RAD ??? IR VERTEBROPLASTY THORACIC SINGLE LEVEL 10/25/2020 IR Vertebroplasty Thoracic Single Level 10/25/2020 Matt Chisholm MD [facility] INTERVENTIONL RAD ??? PRO EMBLC/THRMBC FEMORAL POPLITEAL AORTO-ILIAC ARTERY Left 05/15/2022 EMBOLECTOMY OR THROMBECTOMY, FEMOROPOPLITEAL, AORTOILIAC ARTERY BY LEG INCISION (WRVU 19.48) performed by Fito Summers MD at [facility] MAIN OR ??? PRO UPPER GI ENDOSCOPY, CTRL BLEED 05/31/2022 EGD, W CONTROL OF BLEEDING, ANY METHOD performed by Giovani Ponce MD at [facility] ENDOSCOPY ??? PRO UPPER GI ENDOSCOPY, DIAGNOSTIC N/A 05/31/2022 EGD, UPPER GI ENDOSCOPY performed by Giovani Ponce MD at [facility] ENDOSCOPY Social History Tobacco Use [...] risks discussed with patient. Plan discussed with FRENCH PASTRY COOK. Anesthesia Screening documented in this encounter Plan of Treatment Upcoming Encounters Date Type Specialty Care Team Description 08/08/2022 Office Visit Gastroenterology Negra Collins MD [facility] GASTROENTEROLOGY DEPT [place], [place] [address] (Wo rk) 09/05/2022 Appointment Cardiology Trinity Reid MD [facility] CARDIOLOGY [place], [place] [address] (Wo rk) 09/05/2022 Office Visit Cardiology Trinity Reid MD [facility] CARDIOLOGY [place], [place] [address] (Wo rk) documented as of [...] mg documented in this encounter Care Teams Materials Analyst Relationship Specialty Start Date End Date Abby Das MD PCP - General 10/02/[address] [place] [address] [place] [phone] documented as of this encounter
--- OUTSIDE RECORDS SUMMARY | 2022-07-24 09:18 | XMS_ITS | Encounter Summary ---
:1940 Author Organization [facility] [place] [address] Care Team Providers Name Role Phone Bobby Das MD Primary Care Provider Encounter Details Date Type Department Care Team Description 07/01/2022 Telephone Dermatology at [facility], Zainab Dupree, ENGLISH FACULTY MEMBER [address] [place] [address] Social History Tobacco Use Types Packs/Day [...] [facility] GASTROENTEROLOGY DEPT [place], [place] [address] (Wo rk) 09/05/2022 Appointment Cardiology Trinity Reid MD [facility] CARDIOLOGY [place], [place] [address] (Wo rk) 09/05/2022 Office Visit Cardiology Trinity Reid MD [facility] CARDIOLOGY [place], [place] [address] (Wo rk) documented as of this encounter Visit Diagnoses Not on filedocumented in this encounter Care Teams Timber Selector Relationship Specialty Start Date End Date Bobby Das MD PCP - General 10/02/[address] [place] [address] [place] [phone] documented as of this encounter
--- OUTSIDE RECORDS SUMMARY | 2022-07-24 09:18 | XMS_ITS | Encounter Summary ---
:1940 Author Organization [facility] [place] [address] Care Team Providers Name Role Phone Bobby Das MD Primary Care Provider Encounter Details Date Type Department Care Team Description 06/25/2022 Surgery [place] [facility] Giovani Ponce, EGD, UPPER GI [facility] Bobby [place] [address] [facility] [phone] [place], [place] [address] Social History Tobacco Use Types [...] the day after the procedure, use an ocoe-pfo-exhhkza spray to numb your throat. Sucking on [...] occurs, please contact your Doctor. Please call [phone] before 8pm Mon-Fri with problems, questions or concerns. If you call after 8pm or on weekends, call the Hospital at [phone] and ask to speak to the Transportation Maintenance Supervisor feather boner and the weigh tank operator will contact that person for you. When should you call for help? Call [phone] anytime you think you may need emergency [...] any problems. Where can you learn more? [facility] View your After Visit Summary and more online at [email or web address] If you would like to provide feedback about your hospital experience, please call the Office of Patient and Family Relations at . If you have received this After Visit Summary in error, please immediately return it in person to the department, or notify the [facility] Privacy Office by calling toll free at between the hours of 8AM and 5PM to arrange for our retrieval of the documents at no cost to you. Content Version: 12.2 ?? 5005-9025 [employer]. Care instructions adapted under license by [facility]. If you have questions about a medical condition or this instruction, always ask your healthcare professional. [employer] disclaims any warranty or liability for [...] occurs, please contact your Doctor. Please call [phone] before 8pm Mon-Fri with problems, questions or concerns. If you call after 8pm or on weekends, call the Hospital at [phone] and ask to speak to the Transportation Maintenance Supervisor feather boner and the weigh tank operator will contact that person for you. When should you call for help? Call [phone] anytime you think you may need emergency [...] any problems. Where can you learn more? [facility] View your After Visit Summary and more online at [email or web address] If you would like to provide feedback about your hospital experience, please call the Office of Patient and Family Relations at . If you have received this After Visit Summary in error, please immediately return it in person to the department, or notify the [facility] Privacy Office by calling toll free at between the hours of 8AM and 5PM to arrange for our retrieval of the documents at no cost to you. Content Version: 12.2 ?? 8442-4162 [employer]. Care instructions adapted under license by [facility]. If you have questions about a medical condition or this instruction, always ask your healthcare professional. [employer] disclaims any warranty or liability for your [...] 21 (FLONASE) 50 mcg/actuation Nare route daily [place], Suspension as needed. fluorouraciL (EFUDEX) 5 % [...] ischemia I99.8 ??? Coronary artery disease involving [place] coronary artery of [place] heart without angina xogttlxnD45.10 ??? HFrEF (heart failure with reduced ejection [...] MD [facility] GASTROENTEROLOGY DEPT [place], [place] [address] (Wo rk) 09/05/2022 Appointment Cardiology Trinity Reid MD [facility] CARDIOLOGY [place], [place] [address] (Wo rk) 09/05/2022 Office Visit Cardiology Trinity Reid MD [facility] CARDIOLOGY [place], [place] [address] (Wo rk) documented as of [...] Component Value Ref Test Analysis Performed At [facility] Range Method Time Signature UPPER GI [facility] ENDOSCOPY Endoscopy Procedure Date: 06/25/2022 10:33 AM ? Patient Name: Koko Zamora ? Date of : 1940 ? Age: 81 ? Order #: [id number] ? Instrument Name: [id number]- [id number]- [id number] ? Procedure: ? Upper GI endoscopy Indications: ? Recent gastrointestinal bleeding Providers: ? Giovani Ponce, Isi puente, ? Brissa Vee RN, Darrell ? Confalone Referring MD: ?[facility]: ? Propofol per Anesthesia [...] [facility] Method Time Signature COLONOSCOPY [facility] Endoscopy Procedure Date: 06/25/2022 10:33 AM ? Patient Name: Koko Zamora ? Date of : 1940 ? Age: 81 ? Order #: [id number] ? Instrument Name: [id number]- [id number] ? Procedure: ? Colonoscopy Indications: ? Gastrointestinal [...] Procedure Code(s): ? --- Professional --- ? 09605, Colonoscopy, flexib le; with ? control of [...] of sigmoid ? colon CPT copyright 2021 [employer]. All rights reserved. The codes documented in this report are preliminary and upon co founder and ceo review may be revised to meet current [...] Procedure) documented in this encounter Care Teams Lining Closer Relationship Specialty Start Date End Date Bobby Das MD PCP - General 10/02/[address] [place] [address] [place] [phone] documented as of this encounter
--- OUTSIDE RECORDS SUMMARY | 2022-07-24 09:19 | XMS_ITS | Encounter Summary ---
:1940 [place] [address] Care Team Providers Name Role Phone Bobby Das MD Primary Care Provider Encounter Details Date Type Department Care Team Description 06/13/2022 Office Visit Vascular Surgery at [facility] Fito Summers MD Limb ischemia [facility] [place] [phone] VASCULAR SURGERY [phone] [place] [id number] (Wo rk) Social History Tobacco Use Types [...] s/p repair Overview Note: Surgery done at [facility] in 2000 ??? Hypertriglyceridemia Overview [...] with ABIs. Fito Summers MD Vascular Surgery [facility] Emily Power CMA - [...] MD [facility] GASTROENTEROLOGY DEPT [place], [place] [address] (Wo rk) 09/05/2022 Appointment Cardiology Trinity Reid MD [facility] [address] [place], [place] [address] (Wo rk) 09/05/2022 Office Visit Cardiology Trinity Reid MD [facility] [address] [place], [place] [address] (Wo rk) documented as of this encounter Visit Diagnoses Diagnosis Limb ischemia Unspecified circulatory system disorder documented in this encounter Care Teams Ground Crew Chief Relationship Specialty Start Date End Date Bobby Das MD PCP - General 10/02/[address] [place] [address] [place] [address] documented as of this encounter
--- OUTSIDE RECORDS SUMMARY | 2022-07-24 09:19 | XMS_ITS | Encounter Summary ---
:[address] [facility] [place] [address] Care Team Providers Name Role Phone Bobby Das MD Primary Care Provider Encounter Details Date Type Department Care Team Description 06/23/2022 Telephone Gastroenterology at [facility] [place] August [place] [address] GASTROENTEROLOGY DEPT [phone] [place], [place] [address] (Wo rk) Social History Tobacco [...] Time: 2:27 AM Referring Location: [facility] Referring Provider: Shahram Urena DC HPI: [...] MD [facility] GASTROENTEROLOGY DEPT [place], [place] [address] ( rk) 09/05/2022 Appointment Cardiology Trinity Reid MD [facility] CARDIOLOGY [place], [place] [address] ( rk) 09/05/2022 Office Visit Cardiology Trinity Reid MD [facility] CARDIOLOGY [place], [place] [address] ([facility]) documented as of this encounter Visit Diagnoses Not on filedocumented in this encounter Care Teams Chief Bank Examiner Relationship Specialty Start Date End Date Bobby Das MD PCP - General 10/02/[address] [place] [address] [place] [phone] documented as of this encounter
--- OUTSIDE RECORDS SUMMARY | 2022-07-24 09:19 | XMS_ITS | Encounter Summary ---
:1940 Author Organization [facility] [place] [address] Care Team Providers Name Role Phone Bobby Das MD Primary Care Provider Reason for Visit Auth/Cert Specialty Diagnoses / Procedures Referred By Contact Refer red To Contact Diagnoses GIB (gastrointestinal bleeding) Abe [facility] [place] [address] Referral ID Status Reason Start Date Expiration Date Visits Requ ested Visits Authorized [id number] 1 1 Encounter Details Date Type Department Care Team Description 05/31/2022 Anesthesia Event Gastro[place]ology [place] [facility] Emler Johnson MD [facility] [place] [address] [facility] Yogi Machado CRNA [facility] [place] [address] [place] [address] Anesthesia Record Procedure Summary Procedure Name [...] fossa), DION Carpenter Alysia O, RN right; pxcm-boo-[id number] catheter system; 20 gauge; no longer indicated, [...] Procedure Summary Date: 05/31/22 Room / Location: [facility] ENDO 3 / [facility] ENDOSCOPY Anesthesia Start: 1603 Anesthesia Stop: 165 Procedures: EGD, UPPER GI ENDOSCOPY (N/A Trunk) EGD, W CONTROL OF BLEEDING, ANY METHOD Diagnosis: (melena) Surgeons: Giovani Ponce MD Responsible Provider: Elmer Johnson MD Anesthesia Type: MAC ASA Status: 3 All Anesthesia Providers: Anesthesiologist: Elmer Johnson MD ULTRASOUND SPEC: Yogi Dawkins CRNA Vitals Value Taken Time BP 95/62 05/31/22 1720 Temp Pulse Resp 18 05/31/22 1720 SpO2 99 % 05/31/22 1720 Pain Level 0 05/31/22 1720 Patient Location: PACU/[facility] Level of Consciousness: Awake and Alert Pain [...] MD at [facility] MAIN OR ??? PRO UPPER GI ENDOSCOPY, CTRL BLEED 05/31/2022 EGD, W CONTROL OF BLEEDING, ANY METHOD performed by Giovani Ponce MD at [facility] ENDOSCOPY ??? PRO UPPER GI ENDOSCOPY, DIAGNOSTIC N/A 05/31/2022 EGD, UPPER GI ENDOSCOPY performed by Giovani Ponce MD at [facility] ENDOSCOPY Social History Tobacco Use [...] risks discussed with patient. Plan discussed with ULTRASOUND SPEC. Anesthesia Screening documented in this encounter Plan of Treatment Upcoming Encounters Date Type Specialty Care Team Description 08/08/2022 Office Visit Gastroenterology Negra Collins MD [facility] GASTROENTEROLOGY DEPT [place], [place] [address] (Wo rk) 09/05/2022 Appointment Cardiology Trinity Reid MD [facility] CARDIOLOGY [place], [place] [address] (Wo rk) 09/05/2022 Office Visit Cardiology Trinity Reid MD [facility] CARDIOLOGY [place], [place] [address] (Wo rk) documented as of [...] mg documented in this encounter Care Teams Can Intake Worker Relationship Specialty Start Date End Date Bobby Das MD PCP - General 10/02/[address] [place] [address] [place] [phone] documented as of this encounter
--- OUTSIDE RECORDS SUMMARY | 2022-07-24 09:19 | XMS_ITS | Encounter Summary ---
:1940 Author Organization [facility] [place] [address] Care Team Providers Name Role Phone Bobby Das MD Primary Care Provider Reason for Referral Diagnostic Test (Routine) - Authorized Specialty Diagnoses / Procedures Referred By Contact Refer red To Contact Cardiology Diagnoses HFrEF (heart failure with reduced ejection fraction) Alan Reid MD [facility] Non-Inv Card Lab Procedures [place]chocardi[place] [address] [place] [address] Fax: Referral ID Status Reason Start Expiration Visits Visits Date Date Requested Authorized [id number] Authorized Specialty 06/13/2022 06/13/2023 1 1 Service Requested Reason for Visit Consultation (Routine) - Closed Specialty Diagnoses / Procedures Referred By Contact Refer red To Contact Cardiology Diagnoses HFrEF (heart failure with reduced ejection fraction) Paroxysmal atrial fibrillation Post-hospital follow-up, s/p PCI with stenting, heart failure Nasrin Parra PA [facility] Card[facility] 4a [facility] [place] [address] [place] [address] Referral ID Status Reason Start Date Expiration Date Visits V isits Requested Authorized [id number] Closed Consult, 05/21/2022 05/21/2023 1 1 Test & Treat Encounter Details Date Type Department Care Team Description 06/13/2022 Office Visit Cardiology [place] [facility] Alan Reid Coronary artery disease invo [place]ving [place] coronary artery of [place] heart without angina pectoris; [facility] MD Kurt HFrEF (heart failure with reduced ejecti on fraction); Drive [facility] [place] [address] CARDIOLOGY [phone] [place], [place] [address] Social History Tobacco Use Types [...] from the original note were not included. [facility] [place] [phone] CARDIOLOGY OUTPATIENT PROGRESS NOTE PRIMARY CARE PROVIDER: Bobby Das MD REFERRING PROVIDER: Nasrin Parra PROBLEM LIST: Patient Active Problem List Diagnosis ??? Coronary artery disease involving [place] coronary artery of [place] heart without angina pectoris 05/20/22 Cath * [...] valve prolapse) s/p repair Surgery done at [facility] in 2000 ??? Hypertriglyceridemia ??? Adhesive [...] 3 ??? fluticasone propionate (FLONASE) 50 mcg/actuation [place], Suspension 1 spray by Each Nare route [...] healing well. Markedly diminished left radial pulse. PATTERN MECHANIC: Normal mentation. Psych: Appropriate affect. Labs: Lab [...] device therapy possiblyincluding AV node ablation and MINCING MACHINE OPERATOR-D. Coronary artery disease involving [place] coronary artery of [place] heart without angina pectoris His coronary disease [...] for consideration of AV node ablation and MINCING MACHINE OPERATOR-D Patient Instructions ??? Your new medication is [...] for consideration of AV node ablation and MINCING MACHINE OPERATOR-D Assessment & Plan Note - Alan Reid MD - 06/13/2022 10:22 AM EDT Associated Problem(s): Coronary artery disease involving [place] coronary artery of [place] heart without angina pectoris His coronary disease [...] device therapy possiblyincluding AV node ablation and MINCING MACHINE OPERATOR-D. documented in this encounter Plan of Treatment Upcoming Encounters Date Type Specialty Care Team Description 08/08/2022 Office Visit Gastroenterology Negra Collins MD [facility] DR GASTROENTEROLOGY DEPT [place], [place] [address] (Wo rk) 09/05/2022 Appointment Cardiology Trinity Reid MD [facility] CARDIOLOGY [place], [place] [address] (Wo rk) 09/05/2022 Office Visit Cardiology Trinity Reid MD [facility] CARDIOLOGY [place], [place] [address] (Wo rk) Scheduled Orders Name Type Priority Associated Order Schedule Diagnoses Echocardiogram Echocardiography Routine HFrEF (heart Expected: Transthoracic failure with 08/13/2022, reduced ejection Expires: fraction) 02/12/2023 documented as of this encounter Visit Diagnoses Diagnosis Coronary artery disease involving [place] coronary artery of [place] heart without angina pectoris HFrEF (heart failure with reduced ejecti on fraction) Permanent atrial fibrillation Atrial fibrillation documented in this encounter Care Teams Head Pastry Chef Relationship Specialty Start Date End Date Bobby Das MD PCP - General 10/02/[address] [place] [address] [place] [phone] documented as of this encounter
--- OUTSIDE RECORDS SUMMARY | 2022-07-24 09:19 | XMS_ITS | Encounter Summary ---
:1940 Author Organization [facility] [place] [address] Care Team Providers Name Role Phone Bobby Das MD Primary Care Provider Reason for Referral Consultation (Routine) - Closed Specialty Diagnoses / Referred By Contact Referred To Contact Procedures Cardiac Rehabilitation Diagnoses HFrEF (heart failure with reduced ejection fraction) Coronary artery disease involving [place] coronary artery of [place] heart without angina pectoris Alan Reid Cardiac Rehab, MD Kurt [address] [place] CARDIOLOGY [address] [place] [address] Referral ID Status Reason Start Date Expiration Date Visits V isits Requested Authorized [id number] Closed Consult, 06/20/2022 12/17/2022 36 36 Test & Treat Encounter Details Date Type Department Care Team Description 06/20/2022 Orders Only Cardiology at [facility] Alan Reid HFrEF (heart failure with re duced ejection fraction); [facility] MD Kurt Coronary artery disease involving [place] coronary artery of [place] heart [place] [address] CARDIOLOGY [phone] [place], [place] [address] (Wo rk) Social History Tobacco [...] Collins MD [facility] GASTROENTEROLOGY DEPT [place], [place] [address] (Wo rk) 09/05/2022 Appointment Cardiology Trinity Reid MD [facility] CARDIOLOGY [place], [place] [address] (Wo rk) 09/05/2022 Office Visit Cardiology Trinity Reid MD [facility] CARDIOLOGY [place], [place] [address] (Wo rk) Scheduled Referrals Name Type Priority Associated Diagnoses Order [facility]erral to Outpatient Referral Routine HFrEF (heart failure Ordered: Cardiac Rehab with reduced 06/20/2022 ejection fractio n) Coronary artery disease involving [place] coronary artery of [place] heart without angina pectoris documented as of this encounter Visit Diagnoses Diagnosis HFrEF (heart failure with reduced ejecti on fraction) Coronary artery disease involving [place] coronary artery of [place] heart without angina pectoris documented in this encounter Care Teams Armoured Corps Officer Relationship Specialty Start Date End Date Bobby Das MD PCP - General 10/02/[address] [place] [address] [place] [phone] documented as of this encounter
--- OUTSIDE RECORDS SUMMARY | 2022-07-24 09:19 | XMS_ITS | Encounter Summary ---
:1940 Author Organization [facility] Address [facility] [place] [address] Care Team Providers Name Role Phone Bobby Das MD Primary Care Provider Encounter Details Date Type Department Care Team Description 06/24/2022 Telephone Gastroenterology at [facility] Alan August MD [facility] [place] [address] GASTROENTEROLOGY DEPT [phone] [place], [place] [address] (Wo rk) Social History Tobacco [...] data. [facility] [...] and no diverticulosis. This was done at [facility]. HgB 8.6 today. There has not been [...] MD [facility] GASTROENTEROLOGY DEPT [place], [place] [address] (Wo rk) 09/05/2022 Appointment Cardiology Trinity Reid MD [facility] CARDIOLOGY [place], [place] [address] (Wo rk) 09/05/2022 Office Visit Cardiology Trinity Reid MD [facility] CARDIOLOGY [place], [place] [address] (Wo rk) documented as of this encounter Visit Diagnoses Not on filedocumented in this encounter Care Teams Certified Ophthalmic Medical Technician Relationship Specialty Start Date End Date Bobby Das MD PCP - General 10/02/[address] [place] [address] [place] [phone] documented as of this encounter
--- OUTSIDE RECORDS SUMMARY | 2022-07-24 09:19 | XMS_ITS | Encounter Summary ---
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 Loretta Cohen MD Leboeuf, Matthew R, MD [facility] [address] [place] [address] [place] [address] Fax: Referral ID Status Reason Start Date Expiration Visits Visits Date Requested Authorized [id number] Authorized Consult, 06/17/2022 06/17/2023 1 1 Test & Treat Encounter Details Date Type Department Care Team Description 06/17/2022 Orders Only Dermatology at [facility] Basal cell carcinoma Nicol CARCAMO (BCC) of right [address] [place] [phone] DERMATOLOGY [place], [place] [address] Social History Tobacco Use Types [...] MD [facility] GASTROENTEROLOGY DEPT [place], [place] [address] (Wo rk) 09/05/2022 Appointment Cardiology Trinity Reid MD [facility] CARDIOLOGY [place], [place] [address] (Wo rk) 09/05/2022 Office Visit Cardiology Trinity Reid MD [facility] CARDIOLOGY [place], [place] [address] (Wo rk) Scheduled Referrals Name Type Priority Associated Order Schedule Diagnoses Referral to Outpatient Referral Routine Basal cell Ordered: Dermatology carcinoma (BCC) of 2 right forehead documented as of this encounter Visit Diagnoses Diagnosis Basal cell carcinoma (BCC) of right fore head documented in this encounter Care Teams Network Diagnostic Support Specialist Relationship Specialty Start Date End Date Bobby Das MD PCP - General 10/02/[address] [place] [address] [place] [address] documented as of this encounter
--- OUTSIDE RECORDS SUMMARY | 2022-07-24 09:19 | XMS_ITS | Encounter Summary ---
:1940 [place] [address] Care Team Providers Name Role Phone Bobby Das MD Primary Care Provider Reason for Visit Reason Comments Dizziness Auth/Cert Specialty Diagnoses / Procedures Referred By Contact Refer red To Contact Diagnoses GIB (gastrointestinal bleeding) Abe [facility] [place] [address] Referral ID Status Reason Start Date Expiration Date Visits Requ ested Visits Authorized [id number] 1 1 Encounter Details Date Type Department Care Team Description 05/31/2022 - Hospital Encounter Intermediate Special Dixon Hinds MD [facility] [place] [address] GIB 06/02/2022 Care [place] [address] (gastrointestinal [facility] [place] [address] bleeding) ([facility] [place] [address] Dx) [place] [address] Social History Tobacco Use Types Packs/Day Years [...] Valle MD - 06/02/2022 12:48 PM EDT [facility] Medicine - Discharge Summary Patient [...] switching to a different bloodthinner with the director of casework department outpatient. Call your doctor or seek medical [...] switchingto a different blood thinner with your director of casework department as an outpatient Stopped Medications - Aspirin - Valsartan - Speak with your director of casework department about the timing of restarting this Follow-up Appointments Future Appointments Date Time Provider Department Center 06/10/2022 11:00 AM Loretta Cohen MD [facility] 06/13/2022 7:30 AM Edson [place]os [place] [facility] VAS LAB [facility] 06/13/2022 8:00 AM Fito Summers MD [facility] V SURG [facility] 06/13/2022 10:00 AM Alan Reid MD [address] Your Inpatient Medical Team at [facility] Name(s) of your inpatient provider(s): Dr. John Ames For questions regarding issues relating to your hospitalization on the Hospital Medicine Service, please contact your inpatient physician through the [facility] Instructor [employer] [phone]. Issues after hours and on weekends will be handled by the Hospitalist staff on-call. Your Primary Care Provider Bobby Das MD [phone] Future Appointments and Orders Future Appointments and Orders Future Appointments Provider Department Dept Phone 06/10/2022 11:00 AM Loretta Cohen MD Dermatology [facility] Arrive at: [facility] [address] [place] [phone] 06/13/2022 7:30 AM Edson [place]os [place] Vascular Lab at [facility] Arrive at: [facility] Area [phone] 06/13/2022 8:00 AM Fito Summers MD Vascular Surgery at [facility] Arrive at: [facility] 06/13/2022 10:00 AM Alan Reid MD Cardiology at [facility] Arrive at: [facility] [phone] For questions regarding this document or issues relating to this hospitalization on the Medical Service, please contact your inpatient physician through the [facility] [employer] . Issues after hours and on weekends [...] switching to a different bloodthinner with the director of casework department outpatient. Call your doctor or seek medical [...] switchingto a different blood thinner with your director of casework department as an outpatient Stopped Medications - Aspirin - Valsartan - Speak with your director of casework department about the timing of restarting this Follow-up Appointments Future Appointments Date Time Provider Department Center 06/10/2022 11:00 AM Loretta Cohen MD [facility] 06/13/2022 7:30 AM Edson [place] [facility] VAS LAB ILDA POWELL 06/13/2022 8:00 AM Fito Summers MD [facility] V SURG [facility] 06/13/2022 10:00 AM Alan Reid MD [facility] CARD 4A [facility] Your Inpatient Medical Team at [facility] Name(s) of your inpatient provider(s): Dr. John Ames For questions regarding issues relating to your hospitalization on the Hospital Medicine Service, please contact your inpatient physician through the [facility] [employer] [phone]. Issues after hours and on weekends will be handled by the Hospitalist staff on-call. Your Primary Care Provider Bobby Das MD [phone] documented in this encounter Medications at Time [...] 04/12/20 21 (FLONASE) 50 mcg/actuation Nare route [place], Suspension daily as needed. fluorouraciL (EFUDEX) 5 [...] spent >30 minutes (Day of Discharge Code 06556) involved in the final examination of the [...] were not included. Hospital Medicine Progress Note [place] Team - Pager #[phone] Admit Date: 05/31/2022 Name: Koko Zamora : [...] cardiology to discuss antiplatelet (ISO bleed and alf), following. ?? #CAD s/p stenting recently #HFrEF [...] Kurt Ames MD Internal Medicine, PGY-1 Medicine [place] Team #[id number] Associated attestation - John Jolley MD - [...] of two midnights or is on the [facility] inpatient only procedure list (status C) due to: GI Bleeding documented in this encounter H&P Notes Mahendra Victor MD - 05/31/2022 4:33 PM EDT Images from the original note were not included. [facility] Medicine (#[id number]) History and Physical Patient info: Name: Koko Zamora : 1940 PCP: Bobby Das MD PCP phone number: [phone] Date of Admission: 05/31/2022 ( Hospital Day [...] MD at [facility] MAIN OR No family history on [...] 11 ??? fluticasone propionate (FLONASE) 50 mcg/actuation [place], Suspension as needed. ??? fluorouraciL (EFUDEX) 5 [...] Gas) No results found for: PHART, PO2ART, [id number], [id number] Microbiology: N/A Pertinent radiology/diagnostic studies: Recent prior [...] Status: Full Arpita Valle MD, PGY-3 05/31/2022 [facility] Medicine # [id number] Attending Staff Admission [...] Norepinephrine pulled from [facility] for soft BPs. Upon arrival to pt's [...] AM EDT Pt brought to XR by 8th grade teacher Brittany Ramirez MD - 05/31/2022 10:40 AM [...] who have questions please contact the health long term care phlebotomist that requested your imaging first. Chest PA [...] who have questions please contact the health long term care phlebotomist that requested your imaging first. Course as [...] recommendations from Brittany Tavares MD Resident 05/31/22 1925 Associated attestation - Regina Hinds MD - [...] soft blood pressures, MD made aware. 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 Patient reported blurry/hazy [...] Heparin gtt - plan to bridge to [facility] Discharge planning Increase strength & [...] original note were not included. [facility] NAOM[place] P[place] [phone] INPATIENT CARDIOLOGY CONSULT NOTE Date of Consultation: 06/01/2022 Admit Date: 05/31/2022 Place of Service: IS86/IS86-A Referring Attending: REGINA HINDS COLEMAN W FRIEDMAN, HARLEY P Responsible Manager Business Banking: Dr. Rizo Hospital Day 1 day Reason [...] LCX and LCx stent) who presented to [facility] on 05/31/2022 for GI bleed. Patient presented [...] MD at [facility] MAIN OR ALLERGIES: Allergies Allergen Reactions [...] time ??? fluticasone propionate (FLONASE) 50 mcg/actuation [place], Suspension 1 spray by Each Nare route [...] Neurology: Without focal deficit ECG: Echocardiogram: 05/16/2022 [facility] 05/20/2022 Coronary Angiography: Dominance: Right Left [...] 3.5 guiding catheter and a 3.[address] [facility] [address] 20 Mhz. Imaging was successful. Image [...] A premounted 2.75 x 30 mm Rudy Pershing (AMPARO) was deployed with a maximum inflation [...] may require modification of this regimen. Consult [facility] Interventional Cardiology for questions. The 1 year [...] Hb drop. Unknown source. has had a [facility] with stent placed and revascularization of [...] who have questions please contact the health long term care phlebotomist that requested your imaging first. [employer] 48 [...] who have questions please contact the health long term care phlebotomist that requested your imaging first. Recent Labs [...] on xarelto, ischemic systolic heart failure (recent [facility] 05/20/2022 with 2V disease OM1 and distal RCA, had ostial LCX and LCx stent), recent admission for acutelimb ischemia LLE, where he had left common femoral transverse arteriotomy and primary repair, thromboembolectomy of the SFA, profunda and common femoral artery with 4 compartment fasciotomies, who presented to [facility] on 05/31/2022 for GI bleed. Cardiology consulted [...] attestation for additional insight. Rossy Anaya MD [facility] Utilization Management Nurse, PGY-5 Inpatient Cardiology Consults Pager #[phone] Please check Qgenda for on-call cardiology consults [...] A&Ox 4. On room air. VSS. 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 Adequate urine output, urinal at bedside, flomax [...] surrogate would be surrogate decision maker per [place] surrogate decision making law. (Only good for 180 days) Any patient receiving care in [place] must abide by [place] law. The hierarchy for surrogate decision making [...] (i) The agent with financial power of supervisor roller printing or a conservator appointed in accordance with [...] walker - rolling Home Address confirmed as: [address] [place] [phone] Social & Family Supports: All names listed below confirmed with patient as current and correct Extended Emergency Contact Information Primary Emergency Contact: Ursula Zamora Address: [address] [place] [phone] [facility] Relation: Spouse Current Care Provided [...] Type: *No Product type* / Secondary Insurance: [facility] Secondary Insurance? (Only Medicare A&B): Yes ; Prescription Coverage: Yes Preferred Pharmacy: [facility] - [facility], [place] - [address] [facility] [address] [facility] [address] Status: Patient is a : No Primary Care Provider: Bobby Das MD [phone] Patient/Caregiver Goals of Treatment: Patient plans to [...] with transition of care planning. ASH Garcia Burner Machine Operator [facility] Medicine/ Medical Specialties Pager- [phone] [...] Operative Note Patient Name: Koko Rioson : [id number] MR#: [id number] Case Date: 05/31/2022 Surgeon: Surgeon(s) and Role: [...] yrs ago was normal. He lives in [facility]. Currently light-headedness is improved. No [...] MD at [facility] MAIN OR SOCIAL HX: Social History [...] sounds, tympanic to percussion RECTAL: performed with assessment analyst present, no overt masses, fissures, external hemorrhoids, [...] who have questions please contact the health long term care phlebotomist that requested your imaging first. Abdomen & [...] MD [facility] GASTROENTEROLOGY DEPT [place], [place] [address] (Wo bob) 09/05/2022 Appointment Cardiology Trinity Reid MD [facility] CARDIOLOGY [place], [place] [address] (Wo bob) 09/05/2022 Office Visit Cardiology Trinity Reid MD [facility] DR CARDIOLOGY [place], [place] [address] (Wo rk) documented as of [...] EDT) athologist Signature Neutrophils % 61.3 % [facility] LABORATORY Neutr Abs (ANC) 4.44 1.70 - [facility] 6.10 [facility] x10(3)/[facility] LABORATORY Lymphocytes % 25.2 % [facility] Lymphocytes Abs 1.8 0.9 - 3.2 [facility] x10(3)/[facility] LABORATORY Monocytes % 10.0 % [facility] Monocyte Abs 0.7 0.3 - 0.9 [facility] x10(3)/[facility] LABORATORY Eosinophils % 2.1 % [facility] Eosinophils Abs 0.2 0.0 - 0.4 [facility] x10(3)/[facility] LABORATORY Basophils % 0.7 % [facility] Basophils Abs 0.0 0.0 - 0.1 [facility] x10(3)/[facility] LABORATORY Immature Gran % 0.70 % [facility] Comment: Immature granulocytes(IG's)percentage an d absolute count will include metamyelocytes, myelocytes, and promyelo cytes. Blood smears from CBCs yielding IG's will be scanned manually for concor dance. If this scan disagrees with the automated IG or if promyelocytes are not ed, a manual differential will be performed. Rain Gran Abs 0.05 (H) 0.00 - 0.04 x10(3)/[facility] LABORATORY Specimen Anatomical Collection Method Collection Time Receive d Time (Source) Location / / Volume Laterality Blood 06/02/2022 8:20 AM 8:25 EDT AM EDT Resulting Agency Comment Spec In Lab Kurt Ames MD HEMATOLOGY ORDERABLES Performing Organization Address City/State/ZIP Code Phon e Number [place] [id number] [facility] LAB[address]ORY Drive (ABNORMAL) Hemogram (06/02/2022 8:20 AM EDT) Analysis Performed At Patho logist Time Signature WBC 7.2 4.0 - 9.5 [place] x10(3)/[facility] LABORATORY RBC 2.74 (L) 4.58 - [facility] 5.54 [facility] x10(6)/[facility] LABORATORY Hemoglobin 8.7 (L) 13.7 - [facility] 16.5 g/dL [facility] LABOR[facility]ORY Hematocrit 25.7 (L) 40.5 - [facility] 48.5 % [facility] MCV 93.8 (H) 82.9 - [facility] 93.1 [facility] LABORATORY MCH 31.8 27.5 - [place] 32.1 pg [facility] LABORATORY MCHC 33.9 32.0 - [place] 35.7 g/dL [facility] LABORATORY Platelets 260 145 - 357 [facility] x10(3)/[facility] LABORATORY RDWSD 51.0 (H) 36.0 - [place] 45.0 [facility] LABORATORY RDWCV 14.9 (H) 11.4 - [facility] XIAO 13.8 % [facility] LABORATORY MPV 10.0 7.6 - 12.9 [facility] LABORATORY nRBC % Auto 0.0 % [facility] nRBC Abs Auto 0.000 0.000 - [place] 0.000 [facility] x10(3)/[facility] LABORATORY Specimen Anatomical Collection Method Collection Time Receive d Time (Source) Location / / Volume Laterality Blood 06/02/2022 8:20 AM 8:25 EDT AM EDT Resulting Agency Comment Spec In Lab Kurt Ames MD HEMATOLOGY ORDERABLES Performing Organization Address City/[facility]/ZIP [place] [address] Heparin (unfractionated) Level (06/02/2022 6:30 AM EDT) athologist Signature Heparin UFH 0.39 IU/mL [facility] LABORATORY Comment: Heparin [...] Organization Address City/State/ZIP [place] [address] Heparin (unfractionated) Level (06/02/2022 12:30 AM EDT) athologist Signature Heparin UFH 0.81 IU/mL [facility] LABORATORY Comment: Heparin [...] Victor MD HEMATOLOGY ORDERABLES Performing Organization Address City/[facility]/ZIP Code Phon e Number [address] Magnesium (06/02/2022 12:30 AM EDT) athologist Signature Magnesium 0.83 0.69 - 1.07 [facility] mmol/L [facility] LABORATORY Specimen Anatomical Collection Method Collection Time Receive d Time (Source) Location / / Volume Laterality Blood 06/02/2022 12:30 06/02/2022 AM EDT 12:40 AM EDT Resulting Agency Comment Spec In Lab Mahendra Victor MD CHEMISTRY ORDERABLES Performing Organization Address City/[facility] Phon e Number [address] (ABNORMAL) Basic Metabolic Panel (non-fasting) (06/02/2022 12:30 AM EDT) athologist Signature Glucose Lvl 151 65 - 199 [facility] mg/dL [facility] LABORATORY Comment: Diabetes: >=200 mg/dL plus symp toms BUN 12 10 - 20 mg/dL [facility] LABORATORY Creatinine 0.71 (L) 0.80 - 1.50 mg/dL [facility] LABORATORY Sodium 142 135 - 145 mmol/L [facility] LABORATORY Potassium 3.8 3.5 - 5.0 mmol/L [facility] LABOR[facility] Comment: Please note: ??Patients with [...] Calcium 8.1 (L) 8.5 - 10.5 mg/dL [facility] LABORATORY Estimated GFR 93 >=60 mL/min/1.73 m?? [facility] LABORATORY [...] Comment Spec In Lab Mahendra iVctor MD CHEMISTRY ORDERABLES Performing Organization Address City/State/ZIP Code Phon e Number [place] [phone] HOSPITAL LABORATORY Drive (ABNORMAL) Differential, Automated (06/01/2022 7:29 PM EDT) P athologist Signature Neutrophils % 68.8 % [facility] Neutr Abs (ANC) 5.34 1.70 - [facility] 6.10 [facility] x10(3)/[facility] LABORATORY Lymphocytes % 19.6 % [facility] Lymphocytes Abs 1.5 0.9 - 3.2 [facility] x10(3)/[facility] LABORATORY Monocytes % 8.1 % [facility] Monocyte Abs 0.6 0.3 - 0.9 [facility] x10(3)/[facility] LABORATORY Eosinophils % 1.8 % [facility] Eosinophils Abs 0.1 0.0 - 0.4 [facility] x10(3)/[facility] LABORATORY Basophils % 0.8 % [facility] Basophils Abs 0.1 0.0 - 0.1 [facility] LABORATORY Immature Gran % 0.90 % [facility] Comment: Immature granulocytes(IG's)percentage an d absolute count will include metamyelocytes, myelocytes, and promyelo cytes. Blood smears from CBCs yielding IG's will be scanned manually for concor dance. If this scan disagrees with the automated IG or if promyelocytes are not ed, a manual differential will be performed. Rain Gran Abs 0.07 (H) 0.00 - 0.04 x10(3)/[facility] LABORATORY Specimen Anatomical Collection Method Collection Time Receive d Time (Source) Location / / Volume Laterality Blood 06/01/2022 7:29 PM 7:29 EDT PM EDT Resulting Agency Comment Spec In Lab Kurt Ames MD HEMATOLOGY ORDERABLES Performing Organization Address City/State/ZIP [place] [address] (ABNORMAL) Hemogram (06/01/2022 7:29 PM EDT) Analysis Performed At Patho logist Time Signature WBC 7.8 4.0 - 9.5 [facility] x10(3)/[facility] LABORATORY RBC 2.65 (L) 4.58 - [place] 5.54 [facility] x10(6)/[facility] LABORATORY Hemoglobin 8.3 (L) 13.7 - [facility] 16.5 g/dL [facility] LABORATORY Hematocrit 24.8 (L) 40.5 - [place] 48.5 % [facility] LABORATORY MCV 93.6 (H) 82.9 - [facility] XIAO 93.1 [facility] LABORATORY MCH 31.3 27.5 - [place] 32.1 pg [facility] LABORATORY MCHC 33.5 32.0 - [facility] XIAO 35.7 g/dL [facility] LABORATORY Platelets 263 145 - 357 [facility] x10(3)/[facility] LABORATORY RDWSD 52.8 (H) 36.0 - [place] 45.0 [facility] LABORATORY RDWCV 15.4 (H) 11.4 - [facility] XIAO 13.8 % [facility] LABORATORY MPV 10.4 7.6 - 12.9 [facility] nRBC % Auto 0.0 % [facility] LABORATORY nRBC Abs Auto 0.000 0.000 - [place]AG[place] 0.000 [facility] x10(3)/[facility] LABORATORY Specimen Anatomical Collection Method Collection Time Receive d Time (Source) Location / / Volume Laterality Blood 06/01/2022 7:29 PM 2 7:29 EDT PM EDT Resulting Agency Comment Spec In Lab Kurt Ames MD HEMATOLOGY ORDERABLES Performing Organization Address City/[facility]/ZIP Code Phon e Number [address] Heparin (unfractionated) Level (06/01/2022 7:29 PM EDT) P athologist Signature Heparin UFH 0.81 IU/mL [facility] LABORATORY Comment: Heparin [...] Organization Address City/State/ZIP [place] [address] (ABNORMAL) Heparin (unfractionated) Level (06/01/2022 11:32 AM EDT) Patholo gist Method Time Signature Heparin UFH 1.05 IU/mL [facility] Level (Critical) [facility] LABORATORY Comment: Critical Result called by [...] Organization Address City/State/ZIP [place] [address] (ABNORMAL) Differential, Automated (06/01/2022 5:56 AM EDT) [facility] Method Time Signature Neutrophils % 62.7 % [facility] LABORATORY Neutr Abs (ANC) 6.11 (H) 1.70 - [facility] 6.10 [facility] x10(3)/[facility] LABORATORY Lymphocytes % 23.5 % [facility] LABOR[facility]ORY Lymphocytes Abs 2.3 0.9 - 3.2 [facility] x10(3)/[facility] LABORATORY Monocytes % 10.0 % [facility]OR[facility]ORY Monocyte Abs 1.0 (H) 0.3 - 0.9 [facility] x10(3)/[facility] LABORATORY Eosinophils % 2.2 % [facility]OR[facility]ORY Eosinophils Abs 0.2 0.0 - 0.4 [facility] x10(3)/[facility] LABORATORY Basophils % 0.9 % [facility]OR[facility]ORY Basophils Abs 0.1 0.0 - 0.1 [facility] x10(3)/[facility] LABORATORY Immature Gran % 0.70 % [facility]ORY Comment: Immature granulocytes(IG's)percentage an d absolute count will include metamyelocytes, myelocytes, and promyelo cytes. Blood smears from CBCs yielding IG's will be scanned manually for concor dance. If this scan disagrees with the automated IG or if promyelocytes are not ed, a manual differential will be performed. Rain Gran Abs 0.07 (H) 0.00 - 0.04 x10(3)/[facility] LABORATORY Specimen Anatomical Collection Method Collection Time Receive d Time (Source) Location / / Volume Laterality Blood 06/01/2022 5:56 AM 6:05 EDT AM EDT Resulting Agency Comment Spec In Lab Arpita Valle MD HEMATOLOGY ORDERABLES Performing Organization Address City/State/ZIP Code Phon e Number [place] [phone] HOSPITAL LABORATORY Drive (ABNORMAL) Hemogram (06/01/2022 5:56 AM EDT) Analysis Performed At Patho logist Time Signature WBC 9.7 (H) 4.0 - 9.5 [facility] x10(3)/[facility] LABORATORY RBC 2.83 (L) 4.58 - [facility] XIAO 5.54 [facility] x10(6)/[facility] LABORATORY Hemoglobin 9.0 (L) 13.7 - [facility] 16.5 g/dL [facility] LABORATORY Hematocrit 26.7 (L) 40.5 - [facility] XIAO 48.5 % [facility] LABORATORY MCV 94.3 (H) 82.9 - [facility] 93.1 fL [facility] LABORATORY MCH 31.8 27.5 - [facility] 32.1 pg [facility] LABORATORY MCHC 33.7 32.0 - [facility] XIAO 35.7 g/dL [facility] LABORATORY Platelets 250 145 - 357 [facility] x10(3)/[facility] LABORATORY RDWSD 54.3 (H) 36.0 - [place] 45.0 [facility] LABORATORY RDWCV 15.9 (H) 11.4 - [place] HAGEN 13.8 % [facility] LABORATORY MPV 10.5 7.6 - 12.9 [facility] XIAO [facility] LABORATORY nRBC % Auto 0.0 % [facility] LABORATORY nRBC Abs Auto 0.000 0.000 - [place] 0.000 [facility] x10(3)/[facility] LABORATORY Specimen Anatomical Collection Method Collection Time Receive d Time (Source) Location / / Volume Laterality Blood 06/01/2022 5:56 AM 2 6:05 EDT AM EDT Resulting Agency Comment Spec In Lab Arpita Valle MD HEMATOLOGY ORDERABLES Performing Organization Address City/State/Z[place] [address] Heparin (unfractionated) Level (06/01/2022 4:30 AM EDT) athologist Signature Heparin UFH 0.68 IU/mL [facility] LABORATORY Comment: Heparin [...] Organization Address City/State/[place] [address] (ABNORMAL) Urinalysis with reflex Culture (06/01/2022 4:00 AM EDT) Patholo gist Method Time Signature Glucose UA 500 Negative [facility] (Critical) mg/dL [facility] LABORATORY Comment: Urinalysis result NOT critical without a combination of Glucose greater than or equal to 500 mg/dL AND Ketones greate r than or equal to 80 mg/dL Protein UA Negative Negative mg/dL [facility] LABORATORY Bilirubin UA Negative Negative [...] CENTER LABORATORY Blood UA Negative Negative mg/dL [facility] LABORATORY Ketones UA Negative Negative mg/dL [facility] LABORATORY Nitrite UA Negative Negative [facility] LABORATORY Leukocytes UA Negative Negative [facility] LABORATORY Appearance UA Clear Clear [facility] LABORATORY Spec Petroleum UA >=1.030 (A) 1.005 - 1.030 [facility] LABORATORY Color UA Yellow Yellow [facility] LABORATORY Culture Reflexed No [facility] LABORATORY Specimen Anatomical Collection Method Collection Time Receive d Time (Source) Location / / Volume Laterality Clean Catch 06/01/2022 4:00 AM 4:26 Urine EDT AM EDT Resulting Agency Comment Spec In Lab Mahendra Victor MD URINE ORDERABLES Performing Organization Address City/State/ZIP Code Phon e Number [address] Magnesium (06/01/2022 1:00 AM EDT) P athologist Signature Magnesium 0.93 0.69 - 1.07 [facility] mmol/L [facility] LABORATORY Specimen Anatomical Collection Method Collection Time Receive d Time (Source) Location / / Volume Laterality Blood 06/01/2022 1:00 AM 2 1:37 EDT AM EDT Resulting Agency Comment Spec In Lab Mahendra Victor MD CHEMISTRY ORDERABLES Performing Organization Address City/State/ZIP Code Phon e Number [facility] [place] [address] (ABNORMAL) Basic Metabolic Panel (non-fasting) (06/01/2022 1:00 AM EDT) P athologist Signature Glucose Lvl 148 65 - 199 [facility] mg/dL [facility] LABORATORY Comment: Diabetes: >=200 mg/dL plus symp toms BUN 23 (H) 10 - 20 mg/dL [facility] LABORATORY Creatinine 0.78 (L) 0.80 - 1.50 mg/dL [facility] LABORATORY Sodium 141 135 - 145 mmol/L [facility] LABOR[facility] Potassium 4.0 3.5 - 5.0 mmol/L [facility] Comment: Please note: ??Patients with [...] mmol/L [facility] LABORATORY Anion Gap 9 5 - 15 mmol/L [facility] LABORATORY Calcium 8.6 8.5 - 10.5 mg/dL [facility] LABORATORY Estimated GFR 91 >=60 mL/min/1.73 m?? [facility] LABORATORY [...] Organization Address City/State/ZIP [place] [address] (ABNORMAL) Differential, Automated (06/01/2022 12:00 AM EDT) athologist Signature Neutrophils % 64.6 % [facility] LABORATORY Neutr Abs (ANC) 5.60 1.70 - [facility] 6.10 [facility] x10(3)/[facility] LABORATORY Lymphocytes % 22.4 % [facility] LABORATORY Lymphocytes Abs 1.9 0.9 - 3.2 [facility] x10(3)/[facility] LABORATORY Monocytes % 9.5 % [facility] LABORATORY Monocyte Abs 0.8 0.3 - 0.9 [facility] x10(3)[facility] LABORATORY Eosinophils % 2.1 % [facility] LABORATORY Eosinophils Abs 0.2 0.0 - 0.4 [facility] x10(3)[facility] LABORATORY Basophils % 0.6 % [facility] LABORATORY Basophils Abs 0.0 0.0 - 0.1 [facility] x10(3)/[facility] LABORATORY Immature Gran % 0.80 % [facility] LABORATORY Comment: Immature granulocytes(IG's)percentage an d absolute count will include metamyelocytes, myelocytes, and promyelo cytes. Blood smears from CBCs yielding IG's will be scanned manually for concor dance. If this scan disagrees with the automated IG or if promyelocytes are not ed, a manual differential will be performed. Rain Gran Abs 0.07 (H) 0.00 - 0.04 x10(3)/[facility] LABORATORY Specimen (Source) Anatomical Collection Method Collection Time Re ceived Time Location / / Volume Laterality Blood 06/01/2022 06/01/2022 12:1 0 AM EDT Resulting Agency Comment Spec In Lab Arpita Valle MD HEMATOLOGY ORDERABLES Performing Organization Address City/State/ZIP [place] [address] (ABNORMAL) Hemogram (06/01/2022 12:00 AM EDT) Analysis Performed At Patho logist Time Signature WBC 8.7 4.0 - 9.5 [facility](3[facility] LABORATORY RBC 2.77 (L) 4.58 - [place] 5.54 [facility] x10(6)/[facility] LABORATORY Hemoglobin 8.6 (L) 13.7 - [place] [facility] 16.5 g/dL [facility] LABORATORY Hematocrit 25.7 (L) 40.5 - [facility] XIAO 48.5 % [facility] LABORATORY MCV 92.8 82.9 - [facility] XIAO 93.1 [facility] LABORATORY MCH 31.0 27.5 - [place] 32.1 pg [facility] LABORATORY MCHC 33.5 32.0 - [place] 35.7 g/dL [facility] LABORATORY Platelets 260 145 - 357 [facility] x10(3)/[facility] LABORATORY RDWSD 51.9 (H) 36.0 - [facility] XIAO 45.0 [facility] LABORATORY RDWCV 15.5 (H) 11.4 - [place] 13.8 % [facility] LABORATORY MPV 10.4 7.6 - 12.9 [facility] nRBC % Auto 0.0 % [facility] LABORATORY nRBC Abs Auto 0.000 0.000 - [place] 0.000 [facility] x10(3)/[facility] LABORATORY Specimen (Source) Anatomical Collection Method Collection Time Re ceived Time Location / / Volume Laterality Blood 06/01/2022 06/01/2022 12:1 0 AM EDT Resulting Agency Comment Spec In Lab Arpita Valle MD HEMATOLOGY ORDERABLES Performing Organization Address City/State/ZIP [place] [address] (ABNORMAL) Differential, Automated (05/31/2022 9:17 PM EDT) P athologist Signature Neutrophils % 59.6 % [facility] LABORATORY Neutr Abs (ANC) 3.98 1.70 - [facility] 6.10 [facility] x10(3)/[facility] LABORATORY Lymphocytes % 27.5 % [facility] LABORATORY Lymphocytes Abs 1.8 0.9 - 3.2 [facility] x10(3)/[facility] LABORATORY Monocytes % 9.1 % [facility] LABORATORY Monocyte Abs 0.6 0.3 - 0.9 [facility] x10(3)/[facility] LABORATORY Eosinophils % 2.4 % [facility] LABORATORY Eosinophils Abs 0.2 0.0 - 0.4 [facility] x10(3)/[facility] LABORATORY Basophils % 0.7 % [facility] LABORATORY Basophils Abs 0.0 0.0 - 0.1 [facility] x10(3)/[facility] LABORATORY Immature Gran % 0.70 % [facility] LABORATORY Comment: Immature granulocytes(IG's)percentage an d absolute count will include metamyelocytes, myelocytes, and promyelo cytes. Blood smears from CBCs yielding IG's will be scanned manually for concor dance. If this scan disagrees with the automated IG or if promyelocytes are not ed, a manual differential will be performed. Rain Gran Abs 0.05 (H) 0.00 - 0.04 x10(3)/[facility] LABORATORY Specimen Anatomical Collection Method Collection Time Receive d Time (Source) Location / / Volume Laterality Blood 05/31/2022 9:17 PM 9:25 EDT PM EDT Resulting Agency Comment Spec In Lab Arpita Valle MD HEMATOLOGY ORDERABLES Performing Organization Address City/State/ZIP Code Phon e Number [place] [id number] (ABNORMAL) Hemogram (05/31/2022 9:17 PM EDT) Analysis Performed At Patho logist Time Signature WBC 6.7 4.0 - 9.5 [facility] x10(3)/[facility] LABORATORY RBC 2.74 (L) 4.58 - [place] 5.54 [facility] x10(6)/[facility] LABORATORY Hemoglobin 8.5 (L) 13.7 - [facility] 16.5 g/dL [facility] LABORATORY Hematocrit 25.7 (L) 40.5 - [facility] 48.5 % [facility] LABORATORY MCV 93.8 (H) 82.9 - [facility] 93.1 [facility] LABORATORY MCH 31.0 27.5 - [facility] 32.1 pg [facility] LABORATORY MCHC 33.1 32.0 - [facility] 35.7 g/dL [facility] LABORATORY Platelets 233 145 - 357 [facility] x10(3)/[facility] LABORATORY RDWSD 51.9 (H) 36.0 - [facility] 45.0 [facility] LABORATORY RDWCV 15.3 (H) 11.4 - [facility] 13.8 % [facility] LABORATORY MPV 10.3 7.6 - 12.9 [facility] LABORATORY nRBC % Auto 0.0 % [facility] LABORATORY nRBC Abs Auto 0.000 0.000 - [facility] 0.000 [facility] x10(3)/[facility] LABORATORY Specimen Anatomical Collection Method Collection Time Receive d Time (Source) Location / / Volume Laterality Blood 05/31/2022 9:17 PM 9:25 EDT PM EDT Resulting Agency Comment Spec In Lab Arpita Valle MD HEMATOLOGY ORDERABLES Performing Organization Address City/State/ZIP [place] [address] Transfuse RBC (05/31/2022 7:36 PM EDT) Regina Hinds MD NURSING TREATMENT ORDERABLES - BLOOD ADMIN Transfuse RBC (05/31/2022 7:36 PM EDT) Regina Hinds MD NURSING TREATMENT ORDERABLES - BLOOD ADMIN UPPER GI ENDOSCOPY (05/31/2022 3:37 PM EDT) Component Value Ref Test Analysis Performed At Patholo gist Range Method Time Signature UPPER GI [facility] PROVATION ENDOSCOPY Endoscopy Procedure Date: 05/31/2022 3:37 PM ? Patient Name: Koko Zamora ? Date of : 1940 ? Age: 81 ? Order #: [id number] ? Instrument Name: [id number] ? Procedure: ? Upper GI endoscopy Indications: [...] Procedure Code(s): ? --- Professional --- ? 86564, Esophagogastroduode noscopy, ? flexible, transoral; with control [...] stomach ? and duodenum CPT copyright 2020 [employer]. All rights reserved. The codes documented in this report are preliminary and upon bonding supervisor review may be revised to meet [...] who have questions please contact the health long term care phlebotomist that requested your imaging first. ? Narrative [...] enlarged lymph nodes. Vasculature: Patent common iliac, director plans al iliac, and common femoral arteries bilaterally. [...] enlarged lymph nodes. Vasculature: Patent common iliac, director plans al iliac, and common femoral arteries bilaterally. [...] ho have questions please contact the health long term care phlebotomist that requested your imaging first. Regina Hinds MD IMG CT ORDERABLES Type and Screen Validity (05/31/2022 1:43 PM EDT) [facility] Method Time Signature T&S only valid [facility] LABORATORY Comment: This Type and Screen result is only valid at the [facility] Hospital Specimen Anatomical Collection Method Collection Time Receive d Time (Source) Location / / Volume Laterality Blood 05/31/2022 1:43 PM 2 1:57 EDT PM EDT Resulting Agency Comment Spec In Lab Regina Hinds MD BLOOD BANK ORDERABLES Performing Organization Address City/[facility]/[place] [address] ABORH Recheck Status (05/31/2022 1:43 PM EDT) [facility] Method Time Signature ABORH Type Completed [facility] LABORATORY Specimen Anatomical Collection Method Collection Time Receive d Time (Source) Location / / Volume Laterality Blood 05/31/2022 1:43 PM 2 1:57 EDT PM EDT Resulting Agency Comment Spec In Lab Regina Hinds MD BLOOD BANK ORDERABLES Performing Organization Address City/[facility]/[place] [address] Antibody screen (05/31/2022 1:43 PM EDT) [facility] Method Rose Signature Ab Screen Negative [facility] LABORATORY Expires at 06/03/2022 [facility] [id number] on: [facility] LABORATORY Specimen Anatomical Collection Method Collection Time Receive d Time (Source) Location / / Volume Laterality Blood 05/31/2022 1:43 PM 2 1:57 EDT PM EDT Resulting Agency Comment Spec In Lab Regina Hinds MD BLOOD BANK ORDERABLES Performing Organization Address City/[facility]/[place] [address] ABO/Rh Typing (05/31/2022 1:43 PM EDT) P athologist Signature ABORh Type O Pos [facility] LABORATORY Specimen Anatomical Collection Method Collection Time Receive d Time (Source) Location / / Volume Laterality Blood 05/31/2022 1:43 PM 2 1:57 EDT PM EDT Resulting Agency Comment Spec In Lab Regina Hinds MD BLOOD BANK ORDERABLES Performing Organization Address City/[facility] [place] [address] Prepare RBC (05/31/2022 1:35 PM EDT) P athologist Signature Dispensed? Yes [facility] LABORATORY Specimen Anatomical Collection Method Collection Time Receive d Time (Source) Location / / Volume Laterality Blood 05/31/2022 1:35 PM 2 1:30 EDT PM EDT Regina Hinds MD BLOOD BANK ORDERABLES Performing Organization Address City/[facility]/[place] [address] Prepare RBC (05/31/2022 1:25 PM EDT) P athologist Signature Dispensed? Yes [facility] LABORATORY Specimen Anatomical Collection Method Collection Time Receive d Time (Source) Location / / Volume Laterality Blood 05/31/2022 1:25 PM 2 1:23 EDT PM EDT Regina Hinds MD BLOOD BANK ORDERABLES Performing Organization Address City/[facility] [place] [address] (ABNORMAL) Differential, Automated (05/31/2022 12:44 PM EDT) P athologist Signature Neutrophils % 62.0 % [facility] LABORATORY Neutr Abs (ANC) 4.71 1.70 - [facility] 6.10 [facility] x10(3)/[facility] LABORATORY Lymphocytes % 24.1 % [facility] LABORATORY Lymphocytes Abs 1.8 0.9 - 3.2 [facility] x10(3)/[facility] LABORATORY Monocytes % 10.8 % [facility] LABORATORY Monocyte Abs 0.8 0.3 - 0.9 [facility] x10(3)/[facility] LABORATORY Eosinophils % 1.6 % [facility] LABORATORY Eosinophils Abs 0.1 0.0 - 0.4 [facility] x10(3)/[facility] LABORATORY Basophils % 0.7 % [facility] LABORATORY Basophils Abs 0.0 0.0 - 0.1 [facility] x10(3)/[facility] LABORATORY Immature Gran % 0.80 % [facility] LABORATORY Comment: Immature granulocytes(IG's)percentage an d absolute count will include metamyelocytes, myelocytes, and promyelo cytes. Blood smears from CBCs yielding IG's will be scanned manually for concor dance. If this scan disagrees with the automated IG or if promyelocytes are not ed, a manual differential will be performed. Rain Gran Abs 0.06 (H) 0.00 - 0.04 x10(3)/[facility] LABORATORY Specimen Anatomical Collection Method Collection Time Receive d Time (Source) Location / / Volume Laterality Blood 05/31/2022 12:44 05/31/2022 PM EDT 12:57 PM EDT Resulting Agency Comment Spec In Lab Brittany Ramirez MD HEMATOLOGY ORDERABLES Performing Organization Address City/State/ZIP Code Phon e Number [place] [id number] LAB[address] Drive (ABNORMAL) Hemogram (05/31/2022 12:44 PM EDT) Analysis Performed At Patho logist Time Signature WBC 7.6 4.0 - 9.5 [facility] x10(3)/[facility] LABORATORY RBC 2.11 (L) 4.58 - [facility] 5.54 [facility] x10(6)/[facility] LABORATORY Hemoglobin 6.9 (L) 13.7 - [facility] 16.5 g/dL [facility] LABORATORY Hematocrit 20.8 (L) 40.5 - [facility] 48.5 % [facility] LABORATORY MCV 98.6 (H) 82.9 - [facility] 93.1 [facility] LABORATORY MCH 32.7 (H) 27.5 - [facility] 32.1 pg [facility] LABORATORY MCHC 33.2 32.0 - [facility] 35.7 g/dL [facility] Platelets 255 145 - 357 [facility] x10(3)/[facility] LABORATORY RDWSD 47.7 (H) 36.0 - [facility] 45.0 [facility] RDWCV 13.4 11.4 - [facility] 13.8 % [facility] LABORATORY MPV 10.7 7.6 - 12.9 [facility] LABORATORY nRBC % Auto 0.0 % [facility] nRBC Abs Auto 0.000 0.000 - [facility] 0.000 [facility] x10(3)/[facility] LABORATORY Specimen Anatomical Collection Method Collection Time Receive d Time (Source) Location / / Volume Laterality Blood 05/31/2022 12:44 05/31/2022 PM EDT 12:57 PM EDT Resulting Agency Comment Spec In Lab Brittany Ramirez MD HEMATOLOGY ORDERABLES Performing Organization Address City/State/ZIP [place] [address] (ABNORMAL) BLOOD GAS 2 VENOUS (05/31/2022 11:24 AM EDT) P athologist Signature pH [place] 7.38 7.32 - [facility] 7.42 [facility] LABORATORY pCO2 [place] 40 (L) 41 - 51 [facility] LABORATORY pO2 [place] 18 (L) 25 - 40 [facility] LABORATORY HCO3 [place] 23.3 mmol/L [facility] LABORATORY BE Marco Antonio -1.8 mmol/L [facility] LABORATORY Hgb Blood Gas 7.0 (L) 13.7 - [facility] 16.5 g/dL [facility] LABORATORY O2HB [place] 24.3 % [facility] LABORATORY COHB [place] 1.4 % [facility] Comment: Nonsmokers: 0.5-1.5% COHB Smokers: Variable, but usually less than 10% Toxic: 20-30% COHB Lethal: Greater than 60% COHB METHB [place] 1.7 (H) <=1.5 % [facility] LABORATORY Na Whole Blood 137 135 - 145 mmol/L [facility] LABORATORY K Whole Blood 3.9 3.5 - 5.0 mmol/L [facility] LABORATORY Comment: Please note: Patients with WBC >100,000 may have falsely elevated Potassium levels. Contact the Clinical Chemistry L aboratory if there are any questions. ICa Whole Blood 1.19 1.15 - 1.33 mmol/L [facility] LABORATORY Comment: Note: ??Total bilirubin higher than 20 m g/dL may lead to falsely low ionized calcium. CL Whole Blood 107 98 - 107 mmol/L [facility] LABORATORY Gluc Whole Bld 204 (H) 65 - 199 mg/dL [facility] LABORATORY Comment: Diabetes: >=200 mg/dL plus symp toms Lactate WB 1.4 0.5 - 2.2 mmol/L [facility] LABORATORY BGas Source Venous [facility] LABORATORY Specimen Anatomical Collection Method Collection Time Receive d Time (Source) Location / / Volume Laterality Blood 05/31/2022 11:24 05/31/2022 AM EDT 11:24 AM EDT Regina Hinds MD CHEMISTRY ORDERABLES Performing Organization Address City/State/Z[place] [address] TSH [place] (05/31/2022 11:20 AM EDT) P athologist Signature TSH 1.67 0.27 - 4.20 [facility] mcIU/mL [facility] LABORATORY Comment: Reference Interval (mcIU/mL): Females: ??First Trimester: 0.23-3.88 ??Second Trimester: 0.22-3.90 ??Third Trimester: 0.44-4.66 Specimen Anatomical Collection Method Collection Time Receive d Time (Source) Location / / Volume Laterality Blood 05/31/2022 11:20 05/31/2022 AM EDT 11:28 AM EDT Resulting Agency Comment Spec In Lab Regina Hinds MD CHEMISTRY ORDERABLES Performing Organization Address City/State/Z[place] [address] XR Chest PA & [...] who have questions please contact the health long term care phlebotomist that requested your imaging first. ? Narrative [...] ho have questions please contact the health long term care phlebotomist that requested your imaging first. Regina Hinds MD IMG DX ORDERABLES Lipase (05/31/2022 10:50 AM EDT) athologist Signature Lipase 41 0 - 60 [facility]/L [facility] LABORATORY Specimen Anatomical Collection Method Collection Time Receive d Time (Source) Location / / Volume Laterality Blood Venous Draw / 05/31/2022 10:50 05/31/2022 Unknown AM EDT 11:11 AM EDT Resulting Agency Comment Spec In Lab Zain Champion MD CHEMISTRY ORDERABLES Performing Organization Address City/State/ZIP [place] [address] (ABNORMAL) Hepatic Function Panel (05/31/2022 10:50 AM EDT) Analysis Performed At Patho logist Time Signature Total Protein 6.4 6.1 - 8.0 [facility] XIAO g/dL [facility] LABORATORY Albumin 4.1 3.2 - 5.2 [facility] XIAO g/dL [facility] LABORATORY AST 24 0 - 39 [facility]L [facility] LABOR[facility] ALT 44 0 - 55 [facility] unit/L [facility] LABORATORY Alk Phos 63 40 - 130 [facility] LABORATORY Total <0.2 (L) 0.2 - 1.3 [facility] Bilirubin mg/dL [facility] LABORATORY Bili, Direct 0.1 0.0 - 0.3 [facility] mg/dL [facility] LABORATORY Specimen Anatomical Collection Method Collection Time Receive d Time (Source) Location / / Volume Laterality Blood Venous Draw / 05/31/2022 10:50 05/31/2022 Unknown AM EDT 11:11 AM EDT Resulting Agency Comment Spec In Lab Zain Champion MD CHEMISTRY ORDERABLES Performing Organization Address City/[facility]/ZIP Code Phon e Number [address] Blue Tube HOLD (05/31/2022 10:50 AM EDT) P athologist Signature Blue Hold Sample in [facility] lab. [facility] LABORATORY Specimen Anatomical Collection Method Collection Time Receive d Time (Source) Location / / Volume Laterality Blood Venous Draw / 05/31/2022 10:50 05/31/2022 Unknown AM EDT 11:05 AM EDT Brittany Ramirez MD HEMATOLOGY ORDERABLES Performing Organization Address City/[facility]/ZIP Code Phon e Number [address] (ABNORMAL) Differential, Automated (05/31/2022 10:50 AM EDT) P athologist Signature Neutrophils % 66.9 % [facility] LABORATORY Neutr Abs (ANC) 5.58 1.70 - [facility] 6.10 [facility] x10(3)/[facility] LABORATORY Lymphocytes % 22.2 % [facility] LABORATORY Lymphocytes Abs 1.8 0.9 - 3.2 [facility] x10(3)/[facility] LABORATORY Monocytes % 7.8 % [facility] LABORATORY Monocyte Abs 0.6 0.3 - 0.9 [facility] x10(3)/[facility] LABORATORY Eosinophils % 1.2 % [facility] LABORATORY Eosinophils Abs 0.1 0.0 - 0.4 [facility] x10(3)/[facility] LABORATORY Basophils % 0.7 % [facility] LABORATORY Basophils Abs 0.1 0.0 - 0.1 [facility] x10(3)/[facility] LABORATORY Immature Gran % 1.20 % [facility] LABORATORY Comment: Immature granulocytes(IG's)percentage an d absolute count will include metamyelocytes, myelocytes, and promyelo cytes. Blood smears from CBCs yielding IG's will be scanned manually for concor dance. If this scan disagrees with the automated IG or if promyelocytes are not ed, a manual differential will be performed. Rain Gran Abs 0.10 (H) 0.00 - 0.04 x10(3)/[facility] LABORATORY Specimen Anatomical Collection Method Collection Time Receive d Time (Source) Location / / Volume Laterality Blood 05/31/2022 10:50 05/31/2022 AM EDT 11:03 AM EDT Resulting Agency Comment Spec In Lab Brittany Ramirez MD HEMATOLOGY ORDERABLES Performing Organization Address City/State/ZIP Code Phon e Number [place] [phone] (ABNORMAL) Hemogram (05/31/2022 10:50 AM EDT) Analysis Performed At Patho logist Time Signature WBC 8.3 4.0 - 9.5 [facility] x10(3)/[facility] LABORATORY RBC 2.26 (L) 4.58 - [facility] 5.54 [facility] x10(6)/[facility] LABORATORY Hemoglobin 7.4 (L) 13.7 - [facility] 16.[facility] g/dL [facility] LABORATORY Hematocrit 22.3 (L) 40.5 - [facility] 48.[facility] % [facility] LABORATORY MCV 98.7 (H) 82.9 - [facility] 93.1 fL [facility] LABORATORY MCH 32.7 (H) 27.5 - [facility] HAGEN 32.1 pg [facility] LABORATORY MCHC 33.2 32.0 - [facility] 35.7 g/dL [facility] LABORATORY Platelets 283 145 - 357 [facility] X[facility] x10(3)/[facility] LABORATORY RDWSD 47.0 (H) 36.0 - [facility] 45.0 [facility] LABORATORY RDWCV 13.4 11.4 - [facility] XIAO 13.8 % [facility] LABORATORY MPV 10.8 7.6 - 12.9 [facility] LABORATORY nRBC % Auto 0.0 % [facility] LABORATORY nRBC Abs Auto 0.000 0.000 - [facility] XIAO 0.000 [facility] x10(3)/[facility] LABORATORY Specimen Anatomical Collection Method Collection Time Receive d Time (Source) Location / / Volume Laterality Blood 05/31/2022 10:50 05/31/2022 AM EDT 11:03 AM EDT Resulting Agency Comment Spec In Lab Brittany Ramirez MD HEMATOLOGY ORDERABLES Performing Organization Address City/State/ZIP Code Phon e Number [address] Phosphorus (05/31/2022 10:50 AM EDT) P athologist Signature Phosphorus 3.2 2.5 - 4.5 [facility] XIAO mg/dL [facility] LABORATORY Specimen Anatomical Collection Method Collection Time Receive d Time (Source) Location / / Volume Laterality Blood 05/31/2022 10:50 05/31/2022 AM EDT 11:03 AM EDT Resulting Agency Comment Spec In Lab Regina Hinds MD CHEMISTRY ORDERABLES Performing Organization Address City/State/ZIP Code Phon e Number [address] Magnesium (05/31/2022 10:50 AM EDT) P athologist Signature Magnesium 0.93 0.69 - 1.07 [facility] XIAO mmol/L [facility] LABORATORY Specimen Anatomical Collection Method Collection Time Receive d Time (Source) Location / / Volume Laterality Blood 05/31/2022 10:50 05/31/2022 AM EDT 11:03 AM EDT Resulting Agency Comment Spec In Lab Regina Hinds MD CHEMISTRY ORDERABLES Performing Organization Address City/State/ZIP Code Phon e Number [address] (ABNORMAL) pro-Brain Natriuretic Peptide (05/31/2022 10:50 AM EDT) athologist Signature ProBNP 1,077 (H) <=449 [facility] [employer] pg/mL [facility] LABORATORY Specimen Anatomical Collection Method Collection Time Receive d Time (Source) Location / / Volume Laterality Blood 05/31/2022 10:50 05/31/2022 AM EDT 11:03 AM EDT Resulting Agency Comment Spec In Lab Regina Hinds MD CHEMISTRY ORDERABLES Performing Organization Address City/State/[place] [address] Troponin (05/31/2022 10:50 AM EDT) athologist Signature Troponin-T <0.01 0.00 - 0.00 [facility] XIAO ng/mL [facility] LABORATORY Comment: The 99th percentile for [...] additional sample may be indicated. Reference: Third [place] Definition of Myocardial Infarction. Journal of the [place] [employer] 2012;60:1581-98 Specimen Anatomical Collection Method Collection Time Receive d Time (Source) Location / / Volume Laterality Blood 05/31/2022 10:50 05/31/2022 AM EDT 11:03 AM EDT Resulting Agency Comment Spec In Lab Regina Hinds MD CHEMISTRY ORDERABLES Performing Organization Address City/State/ZIP Code Phon e Number [place] [phone] (ABNORMAL) Basic Metabolic Panel (non-fasting) (05/31/2022 10:50 AM EDT) athologist Signature Glucose Lvl 223 (H) 65 - 199 [facility] mg/dL [facility] LABORATORY Comment: Diabetes: >=200 mg/dL plus symp toms BUN 39 (H) 10 - 20 mg/dL [facility] LABORATORY Creatinine 0.91 0.80 - 1.50 mg/dL [facility] LABORATORY Sodium 140 135 - 145 mmol/L [facility] LABORATORY Potassium 4.1 3.5 - 5.0 mmol/L [facility] LABORATORY Comment: Please note: ??Patients with [...] mmol/L [facility] LABORATORY Calcium 9.1 8.5 - 10.5 mg/dL [facility] LABORATORY Estimated GFR 86 >=60 mL/min/1.73 m?? [facility] LABORATORY [...] Address City/State/[place] [address] EKG 12 Lead (05/31/2022 10:11 AM EDT) Component Value Ref Range Test Analysis Performed Pathologis t Method Time At Signature Ventricular rate 106 BPM MUSE SYSTEM QRS Duration 122 ms MUSE SYSTEM Q-T Interval 368 ms MUSE SYSTEM QTC Calculated 488 ms MUSE SYSTEM (Bezet) Calculated R [place] -43 degrees MUSE SYSTEM Calculated T [place] 109 degrees MUSE SYSTEM INTERPRETATION Atrial fibrillation with rapid ventricular response MUSE SYSTEM Left axis deviation Minimal voltage criteria for LVH, may be normal variant ( [place] product ) Cannot rule out Anterior infarct , age undetermined Abnormal ECG When compared with ECG of 20-MAY-2022 19:04, No significant change was found I personally reviewed the tracing and edited the fellows int erpretation Confirmed by fellow MD Mike, [place] ([id number]) on 022 8:36:21 PM Confirmed by MD [...] (Lidoderm) 5% patch 2 patch(Linked Group 1) 2699 (Patch Applied - Provider: Raven Barbour RN [...] Raven Barbour RN)0557 (Not Given - Provider: Ravne Barbour RN - Reason: Contraindicated - Comment: [...] - Less than 0.1 international unit/mL: Ad toll line mechanic PRN bolus and increase rate by [...] to med 0-4,000 Units, Intravenous, BOLUS [facility], Starting on Fri05/31/22 at 2014, Until [...]
Routine documented in this encounter Care Teams Warranty Manager Relationship Specialty Start Date End Date Bobby Das MD PCP - General 10/02/[address] [place] [address] [place] [phone] documented as of this encounter
--- OUTSIDE RECORDS SUMMARY | 2022-07-24 09:19 | XMS_ITS | Encounter Summary ---
:1940 Author Organization [facility] [place] [address] Care Team Providers Name Role Phone Bobby Das MD Primary Care Provider Reason for Visit Reason Comments Skin Lesion Consultation (Routine) - Closed Specialty Diagnoses / Procedures Referred By Contact Refer red To Contact Dermatology Diagnoses Lesion on right eye = hx of skin cancer Bobby Das MD [facility] Dermatology Procedures Lesion on right eye = hx of skin cancer [address] [facility] [address] [place] [address] [place] [address] Fax: Referral ID Status Reason Start Date Expiration Date Visits Requ ested Visits Authorized [id number] Closed 04/22/2022 04/22/2023 1 1 Encounter Details Date Type Department Care Team Description 06/10/2022 Office Visit Dermatology at [facility], Neoplasm of Road unspecified behavior [address] [facility] [place] [address] [address] and skin [phone] DERMATOLOGY [place] [address] Social History Tobacco Use Types Packs/Day Years [...] nevi N SCC N BCC 2015: right episcopal, BCC s/p mohs 09/2018: right eyebrow, BCC [...] RTC: Pending pathology []Note routed to secretary office clerk []Recall placed in scheduling system []Appointment scheduled at checkout Scribe attestation: Sidney Higgins and Loretta Gomez CMA performed the documentation for this encounter in the presence of and acting as a scribe for Noel Burgos MD. I performed the above scribed service and agree with the accuracy of the documentation in this encounter. Reviewed and signed by: Noel Burgos MD Dermatology [facility] Loretta Cohen MD - 06/10/2022 11:00 AM EDT DERMATOLOGY TELEPHONE NOTE Koko Zamora 06/17/2022 [id number] Reason for call: Discuss biopsy results I [...] Collins MD [facility] GASTROENTEROLOGY DEPT [place], [place] [address] (Wo bob) 09/05/2022 Appointment Cardiology Trinity Reid MD [facility] CARDIOLOGY [place], [place] [address] (Rebekah rojas) 09/05/2022 Office Visit Cardiology Trinity Reid MD [facility] ER DR CARDIOLOGY [place] [phone] (Wo rk) documented as of this encounter [...] Organization Address City/State/[place] [address] Surgical Pathology Report (06/10/2022 11:43 AM EDT) Component Value Ref Test [facility] Range Method Time Signature Surgical [id number] ? Location: [facility] Report The signing pathologist has (i) examined the relevant preparation(s) for the [facility] specimen(s) and (ii) rendered or confirmed the diagnosis(es) . HOSPITAL LABORATORY . ?Surgic al Pathology DIAGNOSIS Right lateral eyebrow, skin shave biopsy: - ??Basal cell carcinoma, no dular pattern, transected at the peripheral and deep specimen edges Electronically signed by: ?Delroy CARCAMO, PhD, Ian Verified: ??06/12/2022 14:33 ??Dermatopathologist Performed at: ??[place] [place], [place], [place] SPECIMEN(S) SUBMITTED A - right lateral [...] Organization Address City/State/[place] [address] [facility] [address] documented in this encounter Visit Diagnoses Diagnosis Neoplasm of unspecified behavior of bone , soft tissue, and skin documented in this encounter Care Teams Patcher Bowling Ball Relationship Specialty Start Date End Date Bobby Das MD PCP - General 10/02/[address] [place] [address] [place] [address] documented as of this encounter
--- OUTSIDE RECORDS SUMMARY | 2022-07-24 09:19 | XMS_ITS | Encounter Summary ---
:1940 [place] [address] Care Team Providers Name Role Phone Bobby Das MD Primary Care Provider Encounter Details Date Type Department Care Team Description 06/13/2022 Tech Visit Vascular Lab at [facility], Dominga [place] [address] Social History Tobacco Use Types Packs/Day [...] [facility] DR GASTROENTEROLOGY DEPT [place], [place] [address] (Wo rk) 09/05/2022 Appointment Cardiology Trinity Reid MD [facility] CARDIOLOGY [place], [place] [address] (Wo rk) 09/05/2022 Office Visit Cardiology Trinity Reid MD [facility] CARDIOLOGY [place], [place] [address] (Wo rk) documented as of this encounter Procedures Procedure Name Priority Date/Time Associated Diagnosis Comme nts JOSSELYN, LEGS, MULTIPLE Routine 06/13/2022 7:13 AM Limb ischemia R esults for this LEVELS EDT procedure are i n the results section. documented in this encounter Results JOSSELYN, legs, multiple levels (06/13/2022 7:13 AM EDT) Component Value Ref Test Analysis Performed At [facility] Range Method Time Signature VB Text Department: Vascular Surgery Lab [facility]AS[facility] Report Patient: [id number] (ETTA BAH) CPT: 19804 Referring Physician: FITO SUMMERS ?? 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 Diabetes mellitus: no Findings: Right [...] disorder documented in this encounter Care Teams Launch Steward Relationship Specialty Start Date End Date Bobby Das MD PCP - General 10/02/[address] [place] [address] [place] [phone] documented as of this encounter
--- OUTSIDE RECORDS SUMMARY | 2022-07-24 09:19 | XMS_ITS | Encounter Summary ---
:1940 Author Organization [facility] [place] [address] Care Team Providers Name Role Phone Bobby Das MD Primary Care Provider Encounter Details Date Type Department Care Team Description 06/19/2022 Telephone Cardiology at [facility] [place] Kourtney Jimenez, RN [facility] [place] [address] Social History Tobacco Use Types Packs/Day [...] Zamora: Requesting a referral to Cardiac Rehab [facility] Forward to Dr Reid documented in this encounter Plan of Treatment Upcoming Encounters Date Type Specialty Care Team Description 08/08/2022 Office Visit Gastroenterology Negra Collins MD [facility] GASTROENTEROLOGY DEPT [place], [place] [address] (Wo rk) 09/05/2022 Appointment Cardiology Trinity Reid MD [facility] CARDIOLOGY [place], [place] [address] (Wo rk) 09/05/2022 Office Visit Cardiology Trinity Reid MD [facility] ER CARDIOLOGY [place], [place] [address] (Wo rk) documented as of this encounter Visit Diagnoses Not on filedocumented in this encounter Care Teams Electric Fork Operator Relationship Specialty Start Date End Date Bobby Das MD PCP - General 10/02/[address] [place] [address] [place] [address] documented as of this encounter
--- OUTSIDE RECORDS SUMMARY | 2022-07-24 09:19 | XMS_ITS | Encounter Summary ---
:1940 Author Organization [facility] [place] [address] Care Team Providers Name Role Phone Bobby Das MD Primary Care Provider Reason for Visit Reason Comments Dizziness Auth/Cert Specialty Diagnoses / Procedures Referred By Contact Refer red To Contact Diagnoses GIB (gastrointestinal bleeding) Abe [facility] [place] [address] Referral ID Status Reason Start Date Expiration Date Visits Requ ested Visits Authorized [id number] 1 1 Encounter Details Date Type Department Care Team Description 05/31/2022 Surgery Gastroenterology at [facility] Giovani Ponce, EGD, UPPER GI [facility] Bobby [place]ill[place] [address] [facility] [phone] [address] [place] [address] Social History Tobacco [...] switching to a different bloodthinner with the senior writer outpatient. Call your doctor or seek medical [...] switchingto a different blood thinner with your senior writer as an outpatient Stopped Medications - Aspirin - Valsartan - Speak with your senior writer about the timing of restarting this Follow-up Appointments Future Appointments Date Time Provider Department Center 06/10/2022 11:00 AM Loretta Cohen MD [facility] 06/13/2022 7:30 AM Edson [place] [facility] VAS LAB [facility] 06/13/2022 8:00 AM Fito Summers MD [facility] V SURG [facility] 06/13/2022 10:00 AM Alan Reid MD [facility] CARD [address] [place] [address] Your Inpatient Medical Team at [facility] Name(s) of your inpatient provider(s): Dr. John Ames For questions regarding issues relating to your hospitalization on the Hospital Medicine Service, please contact your inpatient physician through the [facility] Security Rep [phone]. Issues after hours and on weekends will be handled by the Hospitalist staff on-call. Your Primary Care Provider Bobby Das MD [phone] Future Appointments and Orders Future Appointments and Orders Future Appointments Provider Department Dept Phone 06/10/2022 11:00 AM Loretta Cohen MD Dermatology at [facility] Arrive at: Customer Solutions Coordinator [address] [place] [phone] 06/13/2022 7:30 AM Edson [place]os [place] Vascular Lab at [facility] Arrive at: Customer Solutions Coordinator Area 06/13/2022 8:00 AM Fito Summers MD Vascular Surgery at [facility] Arrive at: Customer Solutions Coordinator Area 06/13/2022 10:00 AM Alan Reid MD Cardiology at [facility] Arrive at: Customer Solutions Coordinator Area 4A [phone] For questions regarding this document or issues relating to this hospitalization on the Medical Service, please contact your inpatient physician through the [facility] Security Rep . Issues after hours and on weekends will be handled by the Hospitalist staff on-call. Signed: Arpita Vlale MD documented in this encounter Discharge Instructions [...] switching to a different bloodthinner with the senior writer outpatient. Call your doctor or seek medical [...] switchingto a different blood thinner with your senior writer as an outpatient Stopped Medications - Aspirin - Valsartan - Speak with your senior writer about the timing of restarting this Follow-up Appointments Future Appointments Date Time Provider Department Center 06/10/2022 11:00 AM Loretta Cohen MD [facility] 06/13/2022 7:30 AM E[place] [facility] VAS LAB ILDA POWELL 06/13/2022 8:00 AM Fito Summers MD [facility] V SURG [facility] 06/13/2022 10:00 AM Alan Reid MD [facility] CARD 4A [facility] Your Inpatient Medical Team at [facility] Name(s) of your inpatient provider(s): Dr. John Ames For questions regarding issues relating to your hospitalization on the Hospital Medicine Service, please contact your inpatient physician through the [facility] Security Rep [phone]. Issues after hours and on weekends will be handled by the Hospitalist staff on-call. Your Primary Care Provider Bobby Das MD [phone] documented in this encounter Medications at Time [...] 04/12/20 21 (FLONASE) 50 mcg/actuation Nare route [place], Suspension daily as needed. fluorouraciL (EFUDEX) 5 [...] spent >30 minutes (Day of Discharge Code 27550) involved in the final examination of the [...] from the original note were not included. [facility] Medicine Progress Note [place] Team - Pager #[phone] Admit Date: 05/31/2022 Name: Koko Zamora : [...] Kurt Ames MD Internal Medicine, PGY-1 Medicine [place] Team #[id number] Associated attestation - John Jolley MD - 06/01/2022 5:02 PM EDT [facility] Medicine -- Attending Progress Note Please see [...] from the original note were not included. [facility] Medicine (#[id number]) History and Physical Patient info: Name: Koko Zamora : 1940 PCP: Bobby Das MD PCP phone number: [phone] Date of Admission: 05/31/2022 ( Hospital Day [...] Biopsy Spine 07/20/[address] [facility] INTERVENTIONL RAD ??? IR VERTEBROPLASTY LUMBAR MULTIPLE LEVELS 07/20/2019 IR Vertebroplasty Lumbar Multiple Levels 07/20/[address] [facility] INTERVENTIONL RAD ??? IR VERTEBROPLASTY THORACIC SINGLE LEVEL 10/25/2020 IR Vertebroplasty Thoracic Single Level 10/25/[address] [facility] INTERVENTIONL RAD ??? PRO EMBLC/THRMBC FEMORAL POPLITEAL AORTO-ILIAC ARTERY Left 05/15/2022 EMBOLECTOMY OR THROMBECTOMY, FEMOROPOPLITEAL, AORTOILIAC ARTERY BY LEG INCISION (WRVU 19.48) performed by Fito Summers MD at [facility] MAIN OR No family history [...] 11 ??? fluticasone propionate (FLONASE) 50 mcg/actuation [place], Suspension as needed. ??? fluorouraciL (EFUDEX) 5 [...] Gas) No results found for: PHART, PO2ART, ULN5PLU, MZE1HVI Microbiology: N/A Pertinent radiology/diagnostic studies: Recent prior [...] Status: Full Arpita Valle MD, PGY-3 05/31/2022 [facility] Medicine # [id number] Attending Staff Admission [...] 05/31/2022 3:58 PM EDT [facility]. Upon arrival [...] 10:50 AM EDT Pt brought to by structural steel trades worker Brittany Ramirez MD - 05/31/2022 10:40 [...] who have questions please contact the health family day care worker that requested your imaging first. Electronically signed by: Jl Zuluaga MD, [facility] ([phone]), at 05/31/2022 2:39 PM XR Chest PA [...] who have questions please contact the health family day care worker that requested your imaging first. Electronically signed by: Alan Brink MD, [facility] ([phone]), at 05/31/2022 11:33 AM ED Course as [...] recommendations from Brittany Tavares MD Resident 05/31/22 [id number] Associated attestation - Regina Hinds MD - [...] soft blood pressures, MD made aware. LBM ONLINE MARKETER. 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 Patient reported blurry/hazy [...] note were not included. [facility] [place] [address] INPATIENT CARDIOLOGY CONSULT NOTE Date of Consultation: 06/01/2022 Admit Date: 05/31/2022 Place of Service: IS86/IS86-A Referring Attending: REGINA HINDS COLEMAN W FRIEDMAN, HARLEY P Responsible Office Support Associate: Dr. Rizo Hospital Day 1 day Reason for Consult: Antiplatelet/anticoagulation s/p pci and afib, with GI bleed HPI: Koko Zamora is a 81 y.o. male with a cardiac history significant for remote mitral valve repair (2000), pre-DM, HLD, significant alcohol use, tobacco use, Afib on xarelto, ischemic systolic heartfailure (recent [facility] 05/20/2022 with 2V disease OM1 and distal RCA, had ostial LCX and LCx stent) who presented to [facility] on 05/[facility]/2022 for GI bleed. Patient presented [...] Biopsy Spine 07/20/[address] [facility] INTERVENTIONL RAD ??? IR VERTEBROPLASTY LUMBAR MULTIPLE LEVELS 07/20/2019 IR Vertebroplasty Lumbar Multiple Levels 07/20/[address] [facility] INTERVENTIONL RAD ??? IR VERTEBROPLASTY THORACIC SINGLE LEVEL 10/25/2020 IR Vertebroplasty Thoracic Single Level 10/25/[address] [facility] INTERVENTIONL RAD ??? PRO EMBLC/THRMBC FEMORAL POPLITEAL AORTO-ILIAC ARTERY Left 05/15/2022 EMBOLECTOMY OR THROMBECTOMY, FEMOROPOPLITEAL, AORTOILIAC ARTERY BY LEG INCISION (WRVU 19.48) performed by Fito Summers MD at [facility] MAIN OR ALLERGIES: Allergies Allergen [...] time ??? fluticasone propionate (FLONASE) 50 mcg/actuation [place], Suspension 1 spray by Each Nare route [...] from 05/31/2022 in Intermediate Special Care Unit [facility] ED to Hosp-Admission (Discharged) from 05/15/2022 in Intermediate Cardiac Care Unit [facility] Weight 77.1 kg (170 lb) [...] 3.5 guiding catheter and a 3.5 Fr [facility] [place] [address] 20 Mhz. Imaging was successful. Image [...] A premounted 2.75 x 30 mm Rudy Donley (AMPARO) was deployed with a maximum inflation [...] may require modification of this regimen. Consult [facility] Interventional Cardiology for questions. The 1 year [...] Unknown source. has had a [facility] with stent placed and revascularization [...] who have questions please contact the health family day care worker that requested your imaging first. Electronically signed by: Jl Zuluaga MD, [facility] ([phone]), at 05/31/2022 2:39 PM [facility] 48 Hrs-15 [...] who have questions please contact the health family day care worker that requested your imaging first. Electronically signed by: Alan Brink MD, [facility] ([phone]), at 05/31/2022 11:33 AM LABS Recent Labs [...] ischemic systolic heart failure (recent [facility] 05/20/2022 with 2V disease OM1 and distal RCA, had ostial LCX and LCx stent), recent admission for acutelimb ischemia LLE, where he had left common femoral transverse arteriotomy and primary repair, thromboembolectomy of the SFA, profunda and common femoral artery with 4 compartment fasciotomies, who presented to [facility] on 05/31/2022 for GI bleed. Cardiology consulted [...] attestation for additional insight. Rossy Anaya MD [facility] Security Operations Analyst, PGY-5 Inpatient Cardiology Consults Pager #[phone] Please check Qgenda for on-call cardiology consults [...] A&Ox 4. On room air. VSS. LBM: ONLINE MARKETER. Adequate urine output, urinal at bedside, flomax [...] receiving care in [place] must abide by [place] law. The hierarchy [...] (i) The agent with financial power of wiring mechanic or a conservator appointed in accordance with [...] - rolling Home Address confirmed as: [address] [place] [id number] Social & Family Supports: All names listed below confirmed with patient as current and correct Extended Emergency Contact Information Primary Emergency Contact: Ursula Zamora Address: [address] [place] [id number] [facility] Relation: Spouse Current Care Provided by: self [...] type* / Secondary Insurance: [facility] Secondary Insurance? (Only Medicare A&B): Yes ; Prescription Coverage: Yes Preferred Pharmacy: [facility] [place], [place] - [address] [place] [address] [place] [address] [place] Status: Patient is a : No Primary Care Provider: Bobby Das MD [phone] Patient/Caregiver Goals of Treatment: Patient plans to [...] with transition of care planning. ASH [place] Independent Marketing Consultant [facility] Medicine/ Medical Specialties Pager- [phone] Plan [...] Operative Note Patient Name: Koko Zamora : [id number] MR#: [id number] Case Date: 05/31/2022 Surgeon: Surgeon(s) and Role: [...] Biopsy Spine 07/20/[address] [facility] INTERVENTIONL RAD ??? IR VERTEBROPLASTY LUMBAR MULTIPLE LEVELS 07/20/2019 IR Vertebroplasty Lumbar Multiple Levels 07/20/[address] [facility] INTERVENTIONL RAD ??? IR VERTEBROPLASTY THORACIC SINGLE LEVEL 10/25/2020 IR Vertebroplasty Thoracic Single Level 10/25/[address] [facility] INTERVENTIONL RAD ??? PRO EMBLC/THRMBC FEMORAL POPLITEAL AORTO-ILIAC ARTERY Left 05/15/2022 EMBOLECTOMY OR THROMBECTOMY, FEMOROPOPLITEAL, AORTOILIAC ARTERY BY LEG INCISION (WRVU 19.48) performed by Fito Summers MD at [facility] MAIN OR SOCIAL HX: Social [...] sounds, tympanic to percussion RECTAL: performed with bird tender present, no overt masses, fissures, external [...] who have questions please contact the health family day care worker that requested your imaging first. Electronically signed by: Alan Brink MD, [facility] ([phone]), at 05/31/2022 11:[address] Abdomen & [...] Collins MD [facility] GASTROENTEROLOGY DEPT [place], [place] [address] (Wo rk) 09/05/2022 Appointment Cardiology Trinity Reid MD [facility] CARDIOLOGY [place], [place] [address] (Wo rk) 09/05/2022 Office Visit Cardiology Trinity Reid MD [facility] CARDIOLOGY [place], [place] [address] (Wo rk) documented [...] P athologist Signature Neutrophils % 61.3 % [facility] LABORATORY Neutr Abs (ANC) 4.44 1.70 - [facility] 6.10 [facility] x10(3)/[facility] LABORATORY Lymphocytes % 25.2 % [facility] Lymphocytes Abs 1.8 0.9 - 3.[address] [facility] x10(3)/[facility] LABORATORY Monocytes % 10.0 % [facility] Monocyte Abs 0.7 0.3 - 0.[address] [facility] x10(3)/[facility] LABORATORY Eosinophils % 2.1 % [facility] Eosinophils Abs 0.2 0.0 - 0.[address] [facility] x10(3)/[facility] LABORATORY Basophils % 0.7 % [facility] Basophils Abs 0.0 0.0 - 0.[address] [facility] x10(3)/[facility] LABORATORY Immature Gran % 0.70 % [facility] Comment: Immature granulocytes(IG's)percentage an d absolute count will include metamyelocytes, myelocytes, and promyelo cytes. Blood smears from CBCs yielding IG's will be scanned manually for concor dance. If this scan disagrees with the automated IG or if promyelocytes are not ed, a manual differential will be performed. Rain Gran Abs 0.05 (H) 0.00 - 0.04 x10(3)/[facility] LABORATORY Specimen Anatomical Collection Method Collection Time Receive d Time (Source) Location / / Volume Laterality Blood 06/02/2022 8:20 AM 8:25 EDT AM EDT Resulting Agency Comment Spec In Lab Kurt Ames MD HEMATOLOGY ORDERABLES Performing Organization Address City/State/[place] [address] (ABNORMAL) Hemogram (06/02/2022 8:20 AM EDT) Analysis Performed At Patho logist Time Signature WBC 7.2 4.0 - 9.[address] [facility] x10(3)/[facility] LABORATORY RBC 2.74 (L) 4.[address] - [facility] 5.54 [facility] x10(6)/[facility] LABORATORY Hemoglobin 8.7 (L) 13.7 - [facility] 16.5 g/dL [facility] LABORATORY Hematocrit 25.7 (L) 40.5 - [place] 48.5 % [facility] LABORATORY MCV 93.8 (H) 82.9 - [place] 93.1 [facility] LABORATORY MCH 31.8 27.5 - [place] 32.[address] [facility] LABORATORY MCHC 33.9 32.0 - [place] 35.7 g/dL [facility] LABORATORY Platelets 260 145 - [address] [facility] x10(3)/[facility] LABORATORY RDWSD 51.0 (H) 36.0 - [place] 45.0 [facility] LABORATORY RDWCV 14.9 (H) 11.4 - [facility] XIAO 13.8 % [facility] LABORATORY MPV 10.0 7.6 - 12.9 [facility] LABORATORY nRBC % Auto 0.0 % [facility] nRBC Abs Auto 0.000 0.000 - [facility] XIAO 0.000 [facility] x10(3)/[facility] LABORATORY Specimen Anatomical Collection Method Collection Time Receive d Time (Source) Location / / Volume Laterality Blood 06/02/2022 8:20 AM 8:25 EDT AM EDT Resulting Agency Comment Spec In Lab Kurt Ames MD HEMATOLOGY ORDERABLES Performing Organization Address City/State/[place] [address] Heparin (unfractionated) Level (06/02/2022 6:30 AM EDT) P athologist Signature Heparin UFH 0.39 IU/mL [facility] LABORATORY [...] Victor MD HEMATOLOGY ORDERABLES Performing Organization Address City/[facility]/ZIP Code Phon e Number [address] Heparin (unfractionated) Level (06/02/2022 12:30 AM EDT) athologist Signature Heparin UFH 0.81 IU/mL [facility] LABORATORY [...] Victor MD HEMATOLOGY ORDERABLES Performing Organization Address City/[facility]/[place] [address] Magnesium (06/02/2022 12:30 AM EDT) P athologist Signature Magnesium 0.83 0.69 - 1.[address] [facility] mmol/L [facility] LABORATORY Specimen Anatomical Collection Method Collection Time Receive d Time (Source) Location / / Volume Laterality Blood 06/02/2022 12:30 06/02/2022 AM EDT 12:40 AM EDT Resulting Agency Comment Spec In Lab Mahendra Victor MD CHEMISTRY ORDERABLES Performing Organization Address City/State/[place] [address] (ABNORMAL) Basic Metabolic Panel (non-fasting) (06/02/2022 12:30 AM EDT) P athologist Signature Glucose Lvl 151 65 - [address] [facility] mg/dL [facility] LABORATORY Comment: Diabetes: >=200 mg/dL plus symp toms BUN 12 10 - 20 mg/dL [facility] LABORATORY Creatinine 0.71 (L) 0.80 - 1.50 mg/dL [facility] LABORATORY Sodium 142 135 [...] mmol/L [facility] LABORATORY Calcium 8.1 (L) 8.5 - 10.5 mg/dL [facility] LABORATORY Estimated GFR 93 >=60 mL/min/1.73 m?? [facility] LABORATORY [...] Organization Address City/State/[place] [address] (ABNORMAL) Differential, Automated (06/01/2022 7:29 PM EDT) athologist Signature Neutrophils % 68.8 % [facility] LABORATORY Neutr Abs (ANC) 5.34 1.[address] - [facility] 6.10 [facility] x10(3)/[facility] LABORATORY Lymphocytes % 19.6 % [facility] LABORATORY Lymphocytes Abs 1.5 0.9 - 3.[address] [facility] x10(3)/[facility] LABORATORY Monocytes % 8.1 % [facility] LABORATORY Monocyte Abs 0.6 0.3 - 0.[address] [facility] x10(3)/[facility] LABORATORY Eosinophils % 1.8 % [facility] LABORATORY Eosinophils Abs 0.1 0.0 - 0.[address] [facility] x10(3)/[facility] LABORATORY Basophils % 0.8 % [facility] LABORATORY Basophils Abs 0.1 0.0 - 0.[address] [facility] x10(3)/[facility] LABORATORY Immature Gran % 0.90 % [facility] Comment: Immature granulocytes(IG's)percentage an d absolute count will include metamyelocytes, myelocytes, and promyelo cytes. Blood smears from CBCs yielding IG's will be scanned manually for concor dance. If this scan disagrees with the automated IG or if promyelocytes are not ed, a manual differential will be performed. Rain Gran Abs 0.07 (H) 0.00 - 0.04 x10(3)/[facility] LABORATORY Specimen Anatomical Collection Method Collection Time Receive d Time (Source) Location / / Volume Laterality Blood 06/01/2022 7:29 PM 2 7:29 EDT PM EDT Resulting Agency Comment Spec In Lab Kurt Ames MD HEMATOLOGY ORDERABLES Performing Organization Address City/State/[place] [address] (ABNORMAL) Hemogram (06/01/2022 7:29 PM EDT) Analysis Performed At Patho logist Time Signature WBC 7.8 4.0 - 9.5 [facility] LABORATORY RBC 2.65 (L) 4.58 - [facility] [place] 5.54 [facility] x10(6)/[facility] LABORATORY Hemoglobin 8.3 (L) 13.7 - [facility] g/dL [facility] LABORATORY Hematocrit 24.8 (L) 40.5 - [facility] 48.5 % [facility] LABORATORY MCV 93.6 (H) 82.9 - [facility] 93.1 [facility] LABORATORY MCH 31.3 27.5 - [place] 32.[address] [facility] LABORATORY MCHC 33.5 32.0 - [place] 35.7 g/dL [facility] LABORATORY Platelets 263 145 - [address] [facility] x10(3)/[facility] LABORATORY RDWSD 52.8 (H) 36.0 - [facility] XIAO 45.0 [facility] LABORATORY RDWCV 15.4 (H) 11.4 - [facility] XIAO 13.8 % [facility] LABORATORY MPV 10.4 7.6 - 12.9 [facility] nRBC % Auto 0.0 % [facility] LABORATORY nRBC Abs Auto 0.000 0.000 - [facility] XIAO 0.000 [facility] x10(3)/[facility] LABORATORY Specimen Anatomical Collection Method Collection Time Receive d Time (Source) Location / / Volume Laterality Blood 06/01/2022 7:29 PM 2 7:29 EDT PM EDT Resulting Agency Comment Spec In Lab Kurt Ames MD HEMATOLOGY ORDERABLES Performing Organization Address City/State/ZIP Code Phon e Number [address] Heparin (unfractionated) Level (06/01/2022 7:29 PM EDT) P athologist Signature Heparin UFH 0.81 IU/mL [facility] LABORATORY [...] Organization Address City/State/ZIP Code Phon e Number [address] (ABNORMAL) Heparin (unfractionated) Level (06/01/2022 11:32 AM EDT) Patholo gist Method Time Signature Heparin UFH 1.05 IU/mL [facility] (Critical) [facility] LABORATORY Comment: Critical Result called [...] Organization Address City/State/[place] [address] (ABNORMAL) Differential, Automated (06/01/2022 5:56 AM EDT) [facility] Method Time Signature Neutrophils % 62.7 % [facility] LABORATORY Neutr Abs (ANC) 6.11 (H) 1.70 - [facility] 6.10 [facility] x10(3)/[facility] LABORATORY Lymphocytes % 23.5 % [facility] LABORATORY Lymphocytes Abs 2.3 0.9 - 3.[address] [facility] x10(3)/[facility] LABORATORY Monocytes % 10.0 % [facility] LABORATORY Monocyte Abs 1.0 (H) 0.3 - 0.[address] [facility] x10(3)/[facility] LABORATORY Eosinophils % 2.2 % [facility] LABORATORY Eosinophils Abs 0.2 0.0 - 0.[address] [facility] x10(3)/[facility] LABORATORY Basophils % 0.9 % [facility] LABORATORY Basophils Abs 0.1 0.0 - 0.[address] [facility] x10(3)/[facility] LABORATORY Immature Gran % 0.70 % [facility] Comment: Immature granulocytes(IG's)percentage an d absolute count will include metamyelocytes, myelocytes, and promyelo cytes. Blood smears from CBCs yielding IG's will be scanned manually for concor dance. If this scan disagrees with the automated IG or if promyelocytes are not ed, a manual differential will be performed. Rain Gran Abs 0.07 (H) 0.00 - 0.04 x10(3)/[facility] LABORATORY Specimen Anatomical Collection Method Collection Time Receive d Time (Source) Location / / Volume Laterality Blood 06/01/2022 5:56 AM 2 6:05 EDT AM EDT Resulting Agency Comment Spec In Lab Arpita Valle MD HEMATOLOGY ORDERABLES Performing Organization Address City/State/[place] [address] (ABNORMAL) Hemogram (06/01/2022 5:56 AM EDT) Analysis Performed At Patho logist Time Signature WBC 9.7 (H) 4.0 - 9.[address] [facility] x10(3)/[facility] LABORATORY RBC 2.83 (L) 4.58 - [facility] 5.54 [facility] x10(6)/[facility] LABORATORY Hemoglobin 9.0 (L) 13.7 - [facility] 16[facility]5 g/dL [facility] LABORATORY Hematocrit 26.7 (L) 40.5 - [facility] 48.5 % [facility] LABORATORY MCV 94.3 (H) 82.9 - [facility] 93.1 [facility] LABORATORY MCH 31.8 27.5 - [facility] 32.[address] [facility] LABORATORY MCHC 33.7 32.0 - [facility] 35.7 g/dL [facility] LABORATORY Platelets 250 145 - [address] [facility] x10(3)/[facility] LABORATORY RDWSD 54.3 (H) 36.0 - [facility] XIAO 45.0 [facility] LABORATORY RDWCV 15.9 (H) 11.4 - [facility] XIAO 13.8 % [facility] LABORATORY MPV 10.5 7.6 - 12.9 [facility] LABORATORY nRBC % Auto 0.0 % [facility] nRBC Abs Auto 0.000 0.000 - [facility] XIAO 0.000 [facility] x10(3)/[facility] LABORATORY Specimen Anatomical Collection Method Collection Time Receive d Time (Source) Location / / Volume Laterality Blood 06/01/2022 5:56 AM 2 6:05 EDT AM EDT Resulting Agency Comment Spec In Lab Arpita Valle MD HEMATOLOGY ORDERABLES Performing Organization Address City/State/[place] [address] Heparin (unfractionated) Level (06/01/2022 4:30 AM EDT) P athologist Signature Heparin UFH 0.68 IU/mL [facility] LABORATORY [...] Victor MD HEMATOLOGY ORDERABLES Performing Organization Address City/[facility]/[place] [address] (ABNORMAL) Urinalysis with reflex Culture (06/01/2022 4:00 AM EDT) Patholo gist Method Time Signature Glucose UA [address] [facility] (Critical) mg/dL [facility] Comment: Urinalysis result NOT critical without a combination of Glucose greater than or equal to 500 mg/dL AND Ketones greate r than or equal to 80 mg/dL Protein UA Negative Negative mg/dL [facility] Bilirubin UA Negative Negative mg/dL [facility] LAB[facility]ORY Blood UA Negative Negative mg/dL [facility] Ketones UA Negative Negative mg/dL [facility] Nitrite UA Negative Negative [facility] Leukocytes UA Negative Negative [facility] LABORATORY Appearance UA Clear Clear [facility] LABORATORY Spec [place] UA >=1.030 (A) 1.005 - 1.030 [facility] Color UA Yellow Yellow [facility]ORY Culture Reflexed No [facility] Specimen Anatomical Collection Method Collection Time Receive d Time (Source) Location / / Volume Laterality Clean Catch 06/01/2022 4:00 AM 2 4:26 Urine EDT AM EDT Resulting Agency Comment Spec In Lab Mahendra Victor MD URINE ORDERABLES Performing Organization Address City/[facility]/ZIP Code Phon e Number [address] Magnesium (06/01/2022 1:00 AM EDT) athologist Signature Magnesium 0.93 0.69 - 1.[address] [facility] mmol/L [facility] LABORATORY Specimen Anatomical Collection Method Collection Time Receive d Time (Source) Location / / Volume Laterality Blood 06/01/2022 1:00 AM 2 1:37 EDT AM EDT Resulting Agency Comment Spec In Lab Mahendra Victor MD CHEMISTRY ORDERABLES Performing Organization Address City/[facility] Phon e Number [address] (ABNORMAL) Basic Metabolic Panel (non-fasting) (06/01/2022 1:00 AM EDT) athologist Signature Glucose Lvl 148 65 - [address] [facility] mg/dL [facility]ORY Comment: Diabetes: >=200 mg/dL plus symp toms BUN 23 (H) 10 - 20 mg/dL [facility] LABOR[facility]ORY Creatinine 0.78 (L) 0.80 - 1.50 mg/dL [facility] [...] mmol/L [facility] Anion Gap 9 5 - 15 mmol/L [facility] Calcium 8.6 8.5 - 10.5 mg/dL [facility] Estimated GFR 91 >=60 mL/min/1.73 m?? [facility] [...] Organization Address City/State/[place] [address] (ABNORMAL) Differential, Automated (06/01/2022 12:00 AM EDT) P athologist Signature Neutrophils % 64.6 % [facility] Neutr Abs (ANC) 5.60 1.70 - [facility] 6.10 [facility] x10(3)/[facility] LABORATORY Lymphocytes % 22.4 % [facility] Lymphocytes Abs 1.9 0.9 - 3.[address] [facility] x10(3)/[facility] LABORATORY Monocytes % 9.5 % [facility] Monocyte Abs 0.8 0.3 - 0.[address] [facility] x10(3)/[facility] LABORATORY Eosinophils % 2.1 % [facility] Eosinophils Abs 0.2 0.0 - 0.[address] [facility] x10(3)/[facility] LABORATORY Basophils % 0.6 % [facility] Basophils Abs 0.0 0.0 - 0.[address] [facility] x10(3)/[facility] LABORATORY Immature Gran % 0.80 % [facility] Comment: Immature granulocytes(IG's)percentage an d absolute count will include metamyelocytes, myelocytes, and promyelo cytes. Blood smears from CBCs yielding IG's will be scanned manually for concor dance. If this scan disagrees with the automated IG or if promyelocytes are not ed, a manual differential will be performed. Rain Gran Abs 0.07 (H) 0.00 - 0.04 x10(3)/[facility] LABORATORY Specimen (Source) Anatomical Collection Method Collection Time Re ceived Time Location / / Volume Laterality Blood 06/01/2022 06/01/2022 12:1 0 AM EDT Resulting Agency Comment Spec In Lab Arpita Valle MD HEMATOLOGY ORDERABLES Performing Organization Address City/State/[place] [address] (ABNORMAL) Hemogram (06/01/2022 12:00 AM EDT) Analysis Performed At Patho logist Time Signature WBC 8.7 4.0 - 9.[address] [facility] x10(3)/[facility] LABORATORY RBC 2.77 (L) 4.58 - [facility] 5.54 [facility] x10(6)/[facility] LABORATORY Hemoglobin 8.6 (L) 13.7 - [facility] 16.5 g/dL [facility]ORATORY Hematocrit 25.7 (L) 40.5 - [facility] 48.5 % [facility] LABORATORY MCV 92.8 82.9 - [facility] 93.1 [facility] LABORATORY MCH 31.0 27.5 - [facility] 32.[address] [facility] LABORATORY MCHC 33.5 32.0 - [facility] 35.7 g/dL [facility] LABORATORY Platelets 260 145 - [address] [facility] x10(3)/[facility] LABORATORY RDWSD 51.9 (H) 36.0 - [facility] 45.0 [facility] LABORATORY RDWCV 15.5 (H) 11.4 - [facility] 13.8 % [facility] LABORATORY MPV 10.4 7.6 - 12.9 [facility] LABORATORY nRBC % Auto 0.0 % [facility] nRBC Abs Auto 0.000 0.000 - [facility] 0.000 [facility] x10(3)/[facility] LABORATORY Specimen (Source) Anatomical Collection Method Collection Time Re ceived Time Location / / Volume Laterality Blood 06/01/2022 06/01/2022 12:1 0 AM EDT Resulting Agency Comment Spec In Lab Arpita Valle MD HEMATOLOGY ORDERABLES Performing Organization Address City/State/[place] [address] (ABNORMAL) Differential, Automated (05/31/2022 9:17 PM EDT) P athologist Signature Neutrophils % 59.6 % [facility] Neutr Abs (ANC) 3.98 1.70 - [facility] 6.10 [facility] x10(3)/[facility] LABORATORY Lymphocytes % 27.5 % [facility] Lymphocytes Abs 1.8 0.9 - 3.[address] [facility] x10(3)/[facility] LABORATORY Monocytes % 9.1 % [facility] Monocyte Abs 0.6 0.3 - 0.[address] [facility] x10(3)/[facility] LABORATORY Eosinophils % 2.4 % [facility] Eosinophils Abs 0.2 0.0 - 0.[address] [facility] x10(3)/[facility] LABORATORY Basophils % 0.7 % [facility] Basophils Abs 0.0 0.0 - 0.[address] [facility] x10(3)/[facility] LABORATORY Immature Gran % 0.70 % [facility] Comment: Immature granulocytes(IG's)percentage an d absolute count will include metamyelocytes, myelocytes, and promyelo cytes. Blood smears from CBCs yielding IG's will be scanned manually for concor dance. If this scan disagrees with the automated IG or if promyelocytes are not ed, a manual differential will be performed. Rain Gran Abs 0.05 (H) 0.00 - 0.04 x10(3)/[facility] LABORATORY Specimen Anatomical Collection Method Collection Time Receive d Time (Source) Location / / Volume Laterality Blood 05/31/2022 9:17 PM 9:25 EDT PM EDT Resulting Agency Comment Spec In Lab Arpita Valle MD HEMATOLOGY ORDERABLES Performing Organization Address City/State/[place] [address] (ABNORMAL) Hemogram (05/31/2022 9:17 PM EDT) Analysis Performed At Patho logist Time Signature WBC 6.7 4.0 - 9.[address] [facility] x10(3)/[facility] LABORATORY RBC 2.74 (L) 4.58 - [facility] 5.54 [facility] x10(6)/[facility] LABORATORY Hemoglobin 8.5 (L) 13.7 - [facility] 16.5 g/dL [facility] LABORATORY Hematocrit 25.7 (L) 40.5 - [facility] 48.5 % [facility] LABORATORY MCV 93.8 (H) 82.9 - [facility] 93.[address] [facility] LABORATORY MCH 31.0 27.5 - [facility] 32.[address] [facility] LABORATORY MCHC 33.1 32.0 - [facility] 35.7 g/dL [facility] LABORATORY Platelets 233 145 - 357 [facility] x10(3)/[facility] LABORATORY RDWSD 51.9 (H) 36.0 - [facility] 45.0 [facility] RDWCV 15.3 (H) 11.4 - [facility] XIAO 13.8 % [facility] MPV 10.3 7.6 - 12.9 [facility] LABORATORY nRBC % Auto 0.0 % [facility] nRBC Abs Auto 0.000 0.000 - [facility] 0.000 [facility] x10(3)/[facility] LABORATORY Specimen Anatomical Collection Method Collection Time Receive d Time (Source) Location / / Volume Laterality Blood 05/31/2022 9:17 PM 9:25 EDT PM EDT Resulting Agency Comment Spec In Lab Arpita Valle MD HEMATOLOGY ORDERABLES Performing Organization Address City/State/[place] [address] Transfuse RBC (05/31/2022 7:36 PM EDT) Regina Hinds MD NURSING TREATMENT ORDERABLES - BLOOD ADMIN Transfuse RBC (05/31/2022 7:36 PM EDT) Regina Hinds MD NURSING TREATMENT ORDERABLES - BLOOD ADMIN UPPER GI ENDOSCOPY (05/31/2022 3:37 PM EDT) Component Value Ref Test Analysis Performed At [facility] Range Method Time Signature UPPER GI [facility] PROVATION ENDOSCOPY Endoscopy Procedure Date: 05/31/2022 3:37 PM ? Patient Name: Koko Zamora ? Date of : 1940 ? Age: 81 ? Order #: [id number] ? Instrument Name: [id number] ? Procedure: ? Upper GI endoscopy Indications: [...] Procedure Code(s): ? --- Professional --- ? 38309, Esophagogastroduode noscopy, ? flexible, transoral; with control [...] stomach ? and duodenum CPT copyright 2021 [employer]. All rights reserved. The codes documented in this report are preliminary and upon annual giving officer review may be revised to meet [...] who have questions please contact the health family day care worker that requested your imaging first. ? Electronically signed by: Jl walter MD, [facility] ([phone]), at 05/31/2022 2:39 PM Narrative 05/31/2022 2:39 PM EDT EXAMINATION: CT ABDOMEN AND PELVIS WWO CONTRAST (GI BLEED) CLINICAL HISTORY: Significant Hb drop. U nknown source. has had a [facility] with stent placed and revascularization [...] enlarged lymph nodes. Vasculature: Patent common iliac, microsoft access developer al iliac, and common femoral arteries [...] enlarged lymph nodes. Vasculature: Patent common iliac, microsoft access developer al iliac, and common femoral arteries [...] ho have questions please contact the health family day care worker that requested your imaging first. Regina Hinds MD G CT ORDERABLES Type and Screen Validity (05/31/2022 1:43 PM EDT) [facility] gist Method Time Signature T&S only valid [facility] at [facility] LABORATORY Comment: This Type and Screen result is only valid at the [facility] Specimen Anatomical Collection Method Collection Time Receive d Time (Source) Location / / Volume Laterality Blood 05/31/2022 1:43 PM 2 1:57 EDT PM EDT Resulting Agency Comment Spec In Lab Regina Hinds MD BLOOD BANK ORDERABLES Performing Organization Address City/State/[place] [address] ABORH Recheck Status (05/31/2022 1:43 PM EDT) [facility] Method Time Signature ABORH Type Completed [facility] LABORATORY Specimen Anatomical Collection Method Collection Time Receive d Time (Source) Location / / Volume Laterality Blood 05/31/2022 1:43 PM 2 1:57 EDT PM EDT Resulting Agency Comment Spec In Lab Regina Hinds MD BLOOD BANK ORDERABLES Performing Organization Address City/[facility]/[place] [address] Antibody screen (05/31/2022 1:43 PM EDT) [facility] Signature Ab Screen Negative [facility] LABORATORY Expires at 06/03/[address] [facility] [id number] on: [facility] LABORATORY Specimen Anatomical Collection Method Collection Time Receive d Time (Source) Location / / Volume Laterality Blood 05/31/2022 1:43 PM 2 1:57 EDT PM EDT Resulting Agency Comment Spec In Lab Regina Hinds MD BLOOD BANK ORDERABLES Performing Organization Address City/[facility]/[place] [address] ABO/Rh Typing (05/31/2022 1:43 PM EDT) P athologist Signature ABORh Type O Pos [facility] Specimen Anatomical Collection Method Collection Time Receive d Time (Source) Location / / Volume Laterality Blood 05/31/2022 1:43 PM 2 1:57 EDT PM EDT Resulting Agency Comment Spec In Lab Regina Hinds MD BLOOD BANK ORDERABLES Performing Organization Address City/[facility]/[place] [address] Prepare RBC (05/31/2022 1:35 PM EDT) P athologist Signature Dispensed? Yes [facility] Specimen Anatomical Collection Method Collection Time Receive d Time (Source) Location / / Volume Laterality Blood 05/31/2022 1:35 PM 2 1:30 EDT PM EDT Regina Hinds MD BLOOD BANK ORDERABLES Performing Organization Address City/[facility] [place] [address] Prepare RBC (05/31/2022 1:25 PM EDT) P athologist Signature Dispensed? Yes [facility] Specimen Anatomical Collection Method Collection Time Receive d Time (Source) Location / / Volume Laterality Blood 05/31/2022 1:25 PM 2 1:23 EDT PM EDT Regina Hinds MD BLOOD BANK ORDERABLES Performing Organization Address [facility] Phon e Number [address] (ABNORMAL) Differential, Automated (05/31/2022 12:44 PM EDT) P athologist Signature Neutrophils % 62.0 % [facility] Neutr Abs (ANC) 4.71 1.70 - [facility] 6.10 [facility] x10(3)/[facility] LABORATORY Lymphocytes % 24.1 % [facility] Lymphocytes Abs 1.8 0.9 - 3.[address] [facility] x10(3)/[facility] LABORATORY Monocytes % 10.8 % [facility] Monocyte Abs 0.8 0.3 - 0.[address] [facility] x10(3)/[facility] LABORATORY Eosinophils % 1.6 % [facility] Eosinophils Abs 0.1 0.0 - 0.[address] [facility] x10(3)/[facility] LABORATORY Basophils % 0.7 % [facility] Basophils Abs 0.0 0.0 - 0.[address] [facility] x10(3)/[facility] LABORATORY Immature Gran % 0.80 % [facility] Comment: Immature granulocytes(IG's)percentage an d absolute count will include metamyelocytes, myelocytes, and promyelo cytes. Blood smears from CBCs yielding IG's will be scanned manually for concor dance. If this scan disagrees with the automated IG or if promyelocytes are not ed, a manual differential will be performed. Rain Gran Abs 0.06 (H) 0.00 - 0.04 x10(3)/[facility] LABORATORY Specimen Anatomical Collection Method Collection Time Receive d Time (Source) Location / / Volume Laterality Blood 05/31/2022 12:44 05/31/2022 PM EDT 12:57 PM EDT Resulting Agency Comment Spec In Lab Brittany Ramirez MD HEMATOLOGY ORDERABLES Performing Organization Address City/State/[place] [address] (ABNORMAL) Hemogram (05/31/2022 12:44 PM EDT) Analysis Performed At Patho logist Time Signature WBC 7.6 4.0 - 9.[address] [facility] x10(3)/[facility] LABORATORY RBC 2.11 (L) 4.58 - [facility] XIAO 5.54 [facility] x10(6)/[facility] LABORATORY Hemoglobin 6.9 (L) 13.7 - [facility] 16[facility]5 g/dL [facility] LABORATORY Hematocrit 20.8 (L) 40.5 - [facility] XIAO 48.5 % [facility] LABORATORY MCV 98.6 (H) 82.9 - [facility] LABORATORY MCH 32.7 (H) 27.5 - [facility]IAO 32.[address] [facility] LABORATORY MCHC 33.2 32.0 - [facility] 35.7 g/dL [facility] LABORATORY Platelets 255 145 - [address] [facility] x10(3)/[facility] LABORATORY RDWSD 47.7 (H) 36.0 - [facility] 45.0 [facility] LABORATORY RDWCV 13.4 11.4 - [facility] 13.8 % [facility] LABORATORY MPV 10.7 7.6 - 12.9 [facility] LABORATORY nRBC % Auto 0.0 % [facility] nRBC Abs Auto 0.000 0.[address] - [facility] 0.000 [facility] x10(3)/[facility] LABORATORY Specimen Anatomical Collection Method Collection Time Receive d Time (Source) Location / / Volume Laterality Blood 05/31/2022 12:44 05/31/2022 PM EDT 12:57 PM EDT Resulting Agency Comment Spec In Lab Brittany Ramirez MD HEMATOLOGY ORDERABLES Performing Organization Address City/State/[place] [address] (ABNORMAL) BLOOD GAS 2 VENOUS (05/31/2022 11:24 AM EDT) P athologist Signature pH [place] 7.38 7.32 - [facility] 7.[address] [facility] LABORATORY pCO2 [place] 40 (L) 41 - 51 [facility] LABORATORY pO2 [place] 18 (L) 25 - 40 [facility] LABORATORY HCO3 [place] 23.3 mmol/L [facility] BE [place] -1.8 mmol/L [facility] Hgb Blood Gas 7.0 (L) 13.7 - [facility] 16.5 g/dL [facility] LABORATORY O2HB [place] 24.3 % [facility] COHB [place] 1.4 % [facility] Comment: Nonsmokers: 0.5-1.5% COHB Smokers: Variable, but usually less than 10% Toxic: 20-30% COHB Lethal: Greater than 60% COHB METHB [place] 1.7 (H) <=1.5 % [facility] LABORATORY Na Whole Blood 137 135 - 145 mmol/L [facility] LABORAT[facility] K Whole Blood 3.9 3.5 - 5.0 mmol/L [facility] LABORATORY Comment: Please note: Patients with WBC >100,000 may have falsely elevated Potassium levels. Contact the Clinical Chemistry L aboratory if there are any questions. ICa Whole Blood 1.19 1.15 - 1.33 mmol/L [facility] Comment: Note: ??Total bilirubin higher than 20 m g/dL may lead to falsely low ionized calcium. CL Whole Blood 107 98 - 107 mmol/L [facility] Gluc Whole Bld 204 (H) 65 - 199 mg/dL [facility] LABORATORY Comment: Diabetes: >=200 mg/dL plus symp toms Lactate WB 1.4 0.5 - 2.2 mmol/L [facility] LABORATORY BGas Source Venous [facility] LABORATORY Specimen Anatomical Collection Method Collection Time Receive d Time (Source) Location / / Volume Laterality Blood 05/31/2022 11:24 05/31/2022 AM EDT 11:24 AM EDT Regina Hinds MD CHEMISTRY ORDERABLES Performing Organization Address City/[facility]/ZIP Code Phon e Number [address] TSH [place] (05/31/2022 11:20 AM EDT) P athologist Signature TSH 1.67 0.27 - 4.[address] [facility] mcIU/mL [facility] LABORATORY Comment: Reference Interval (mcIU/mL): Females: ??First Trimester: 0.23-3.88 ??Second Trimester: 0.22-3.90 ??Third Trimester: 0.44-4.66 Specimen Anatomical Collection Method Collection Time Receive d Time (Source) Location / / Volume Laterality Blood 05/31/2022 11:20 05/31/2022 AM EDT 11:28 AM EDT Resulting Agency Comment Spec In Lab Regina Hinds MD CHEMISTRY ORDERABLES Performing Organization Address City/[facility]/ZIP Code Phon e Number [address] XR Chest PA & [...] who have questions please contact the health family day care worker that requested your imaging first. ? Electronically signed by: Alan strong MD, [facility] ([phone]), at 05/31/2022 11:33 AM Narrative 05/31/2022 11:33 [...] ho have questions please contact the health family day care worker that requested your imaging first. Electronically signed by: Alan strong MD, [facility] ([phone]), at 05/31/2022 11:33 AM Regina Hinds MD IMG DX ORDERABLES Lipase (05/31/2022 10:50 AM EDT) athologist Signature Lipase 41 0 - 60 [place] XIA[place] unit/L [facility] Specimen Anatomical Collection Method Collection Time Receive d Time (Source) Location / / Volume Laterality Blood Venous Draw / 05/31/2022 10:50 05/31/2022 Unknown AM EDT 11:11 AM EDT Resulting Agency Comment Spec In Lab Zain Champion MD CHEMISTRY ORDERABLES Performing Organization Address City/State/ZIP Code Phon e Number [place] [id number] (ABNORMAL) Hepatic Function Panel (05/31/2022 10:50 AM EDT) Analysis Performed At Patho logist Time Signature Total Protein 6.4 6.1 - 8.0 [place] XIAO g/dL [facility] Albumin 4.1 3.2 - 5.2 [place] g/dL [facility] AST 24 0 - 39 [place] unit/L [facility] ALT 44 0 - 55 [place] unit/L [facility] Alk Phos 63 40 - 130 [place] unit/L [facility] Total <0.2 (L) 0.2 - 1.3 [place] Bilirubin mg/dL [facility] Bili, Direct 0.1 0.0 - 0.3 [place] mg/dL [facility] Specimen Anatomical Collection Method Collection Time Receive d Time (Source) Location / / Volume Laterality Blood Venous Draw / 05/31/2022 10:50 05/31/2022 Unknown AM EDT 11:11 AM EDT Resulting Agency Comment Spec In Lab Zain Champion MD CHEMISTRY ORDERABLES Performing Organization Address City/[facility]/ZIP Code Phon e Number [address] Blue Tube HOLD (05/31/2022 10:50 AM EDT) athologist Signature Blue Hold Sample in [facility] LABORATORY Specimen Anatomical Collection Method Collection Time Receive d Time (Source) Location / / Volume Laterality Blood Venous Draw / 05/31/2022 10:50 05/31/2022 Unknown AM EDT 11:05 AM EDT Brittany Ramirez MD HEMATOLOGY ORDERABLES Performing Organization Address City/[facility]/ZIP Code Phon e Number [address] (ABNORMAL) Differential, Automated (05/31/2022 10:50 AM EDT) athologist Signature Neutrophils % 66.9 % [facility] Neutr Abs (ANC) 5.58 1.70 - [facility] 6.10 [facility] x10(3)/[facility] LABORATORY Lymphocytes % 22.2 % [facility] Lymphocytes Abs 1.8 0.9 - 3.[address] [facility] x10(3)/[facility] LABORATORY Monocytes % 7.8 % [facility] Monocyte Abs 0.6 0.3 - 0.[address] [facility] x10(3)/[facility] LABORATORY Eosinophils % 1.2 % [facility] Eosinophils Abs 0.1 0.0 - 0.[address] [facility] x10(3)/[facility] LABORATORY Basophils % 0.7 % [facility] Basophils Abs 0.1 0.0 - 0.[address] [facility] x10(3)/[facility] LABORATORY Immature Gran % 1.20 % [facility] Comment: Immature granulocytes(IG's)percentage an d absolute count will include metamyelocytes, myelocytes, and promyelo cytes. Blood smears from CBCs yielding IG's will be scanned manually for tracy armstrong. If this scan disagrees with the automated IG or if promyelocytes are not ed, a manual differential will be performed. Rain Gran Abs 0.10 (H) 0.00 - 0.04 x10(3)/[facility] LABORATORY Specimen Anatomical Collection Method Collection Time Receive d Time (Source) Location / / Volume Laterality Blood 05/31/2022 10:50 05/31/2022 AM EDT 11:03 AM EDT Resulting Agency Comment Spec In Lab Brittany Ramirez MD HEMATOLOGY ORDERABLES Performing Organization Address City/State/[place] [address] (ABNORMAL) Hemogram (05/31/2022 10:50 AM EDT) Analysis Performed At Patho logist Time Signature WBC 8.3 4.0 - 9.[address] [facility] x10(3)/[facility] LABORATORY RBC 2.26 (L) 4.58 - [facility] x10(6)/[facility] LABORATORY Hemoglobin 7.4 (L) 13.7 - [facility] 16.5 g/dL [facility] Hematocrit 22.3 (L) 40.5 - [facility] 48.5 % [facility] MCV 98.7 (H) 82.9 - [facility] 93.1 [facility] LABORATORY MCH 32.7 (H) 27.5 - [facility] XIAO 32.[address] [facility] LABORATORY MCHC 33.2 32.0 - [facility] XIAO 35.7 g/dL [facility]ORY Platelets 283 145 - [address] [facility] x10(3)/[facility] LABORATORY RDWSD 47.0 (H) 36.0 - [facility] XIAO 45.0 [facility] LABORATORY RDWCV 13.4 11.4 - [facility] XIAO 13.8 % [facility] LABORATORY MPV 10.8 7.6 - 12.9 [facility] LABORATORY nRBC % Auto 0.0 % [facility] nRBC Abs Auto 0.000 0.000 - [place] 0.000 [facility] x10(3)/[facility] LABORATORY Specimen Anatomical Collection Method Collection Time Receive d Time (Source) Location / / Volume Laterality Blood 05/31/2022 10:50 05/31/2022 AM EDT 11:03 AM EDT Resulting Agency Comment Spec In Lab Brittany Ramirez MD HEMATOLOGY ORDERABLES Performing Organization Address City/State/ZIP Code Phon e Number [address] Phosphorus (05/31/2022 10:50 AM EDT) P athologist Signature Phosphorus 3.2 2.5 - 4.5 [place] mg/dL [facility] Specimen Anatomical Collection Method Collection Time Receive d Time (Source) Location / / Volume Laterality Blood 05/31/2022 10:50 05/31/2022 AM EDT 11:03 AM EDT Resulting Agency Comment Spec In Lab Regina Hinds MD CHEMISTRY ORDERABLES Performing Organization Address City/State/ZIP Code Phon e Number [address] Magnesium (05/31/2022 10:50 AM EDT) P athologist Signature Magnesium 0.93 0.69 - 1.07 [place] mmol/L [facility] Specimen Anatomical Collection Method Collection Time Receive d Time (Source) Location / / Volume Laterality Blood 05/31/2022 10:50 05/31/2022 AM EDT 11:03 AM EDT Resulting Agency Comment Spec In Lab Regina Hinds MD CHEMISTRY ORDERABLES Performing Organization Address City/State/[place] [address] (ABNORMAL) pro-Brain Natriuretic Peptide (05/31/2022 10:50 AM EDT) P athologist Signature ProBNP 1,077 (H) <=449 [place] pg/mL [facility] Specimen Anatomical Collection Method Collection Time Receive d Time (Source) Location / / Volume Laterality Blood 05/31/2022 10:50 05/31/2022 AM EDT 11:03 AM EDT Resulting Agency Comment Spec In Lab Regina Hinds MD CHEMISTRY ORDERABLES Performing Organization Address City/[facility]/[place] [address] Troponin (05/31/2022 10:50 AM EDT) athologist Signature Troponin-T <0.01 0.00 - 0.00 [facility] ng/mL [facility] [...] additional sample may be indicated. Reference: Third [place] Definition of Myocardial Infarction. Journal of the [place] [employer] 2012;60:1581-98 Specimen Anatomical Collection Method Collection Time Receive d Time (Source) Location / / Volume Laterality Blood 05/31/2022 10:50 05/31/2022 AM EDT 11:03 AM EDT Resulting Agency Comment Spec In Lab Regina Hinds MD CHEMISTRY ORDERABLES Performing Organization Address City/[facility]/[place] [address] (ABNORMAL) Basic Metabolic Panel (non-fasting) (05/31/2022 10:50 AM EDT) athologist Signature Glucose Lvl 223 (H) 65 - 199 [facility] mg/dL [facility] Comment: Diabetes: >=200 mg/dL plus symp toms BUN 39 (H) 10 - 20 mg/dL [facility] Creatinine 0.91 0.80 - 1.50 mg/dL [facility] LABOR[facility]ORY Sodium 140 135 [...] mmol/L [facility] Calcium 9.1 8.5 - 10.5 mg/dL [facility] Estimated GFR 86 >=60 mL/min/1.73 m?? [facility] LABORATORY [...] Organization Address City/State/[place] [address] EKG 12 Lead (05/31/2022 10:11 AM EDT) Component Value Ref Range Test Analysis Performed Pathologis t Method Time At Signature Ventricular rate 106 BPM MUSE SYSTEM QRS Duration 122 ms MUSE SYSTEM Q-T Interval 368 ms MUSE SYSTEM QTC Calculated 488 ms MUSE SYSTEM (Bezet) Calculated R [place] -43 degrees MUSE SYSTEM Calculated T [place] 109 degrees MUSE SYSTEM INTERPRETATION Atrial fibrillation [...] erpretation Confirmed by fellow MD Mike, [place] ([id number]) on 022 8:36:21 PM Confirmed by MD [...] PROTOCOL, Starting on Fri05/31/22 at 2013, Until [place] 06/02/22 at 1702, Per Pro tocol, START [...] CONTINUOUS, Starting on Fri05/31/22 at 2015, Until [place] 06/02/22 at 1702, Begin infusion at 950 [...] (Lidoderm) 5% patch 2 patch(Linked Group 1) 8533 (Patch Applied - Provider: Raven Barbour RN [...] RN)0710 (New Bag - Provider: Raven Barbour RN)8404 (Stopped - Provider: Maranda Ribeiro RN) 0-5,000 [...] - Less than 0.1 international unit/mL: Ad cinetechnician 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
Routine documented in this encounter Care Teams Deck Lid Fitter Relationship Specialty Start Date End Date Bobby Das MD PCP - General 10/02/[address] [place] [address] [place] [id number] documented as of this encounter
--- OUTSIDE RECORDS SUMMARY | 2022-07-24 09:19 | XMS_ITS | Encounter Summary ---
:1940 Author Organization [facility] [place] [address] Care Team Providers Name Role Phone Bobby Das MD Primary Care Provider Encounter Details Date Type Department Care Team Description 05/24/2022 Telephone Cardiology at [facility] Kourtney Jimenez, RN [facility] [place] [address] Social History Tobacco Use Types Packs/Day [...] [facility] DR GASTROENTEROLOGY DEPT [place], [place] [address] (Wo rk) 09/05/2022 Appointment Cardiology Trinity Reid MD [facility] ER [place], [place] [address] (Wo rk) 09/05/2022 Office Visit Cardiology Trinity Reid MD [facility] ER [place]IOLOG[place], [place] [address] (Wo rk) documented as of this encounter Visit Diagnoses Not on filedocumented in this encounter Care Teams Recruiting Assistant Relationship Specialty Start Date End Date Bobby Das MD PCP - General 10/02/[address] [place] [address] [place] [phone] documented as of this encounter
--- OUTSIDE RECORDS SUMMARY | 2022-07-24 09:19 | XMS_ITS | Encounter Summary ---
:1940 Author Organization [facility] Address [facility] [place] [address] Care Team Providers Name Role Phone Bobby Das MD Primary Care Provider Encounter Details Date Type Department Care Team Description 05/31/2022 Office Visit Vascular Surgery at [facility]; [facility] ECOLOGICAL RISK ASSESSOR Atrial fibrillation, unspecified type; [facility] SOB (shortness of breath) Drive DR [place] VASC[place] [id number] [place] [id number] [phone] Social History Tobacco Use Types Packs/Day Years [...] who presents in transfer from [facility] with acute limb ischemia of the [...] emergently went to the OR for L WINEMAKER transverse arteriotomy and primary repair, thromboembolectomy of L SFA/PFA/WINEMAKER, reperfusion venous drainage for 250 cc, and [...] ND, no palpable pulsatile masses Extremity - [place], warm, no ulceration, brisk capillary refill, left [...] 08/08/2022 Office Visit Gastroenterology Negra Collins MD [facility] ER GASTROENTEROLOGY DEPT [place] [address] (Wo rk) 09/05/2022 Appointment Cardiology Trinity Reid MD [facility] ER CARDIOLOGY [place], [place] [address] (Wo rk) 09/05/2022 Office Visit Cardiology Trinity Reid MD [facility] CARDIOLOGY [place], [place] [address] (Wo rk) documented as of this encounter Visit Diagnoses Diagnosis Dizzy Dizziness and giddiness Atrial fibrillation, unspecified type SOB (shortness of breath) Shortness of breath documented in this encounter Care Teams Grain Trimmer Relationship Specialty Start Date End Date Bobby Das MD PCP - General 10/02/[address] [place] [address] [place] [address] documented as of this encounter
--- OUTSIDE RECORDS SUMMARY | 2022-07-24 09:20 | XMS_ITS | Encounter Summary ---
:1940 [place] [address] Care Team Providers Name Role Phone Bobby Das MD Primary Care Provider Reason for Visit Reason Comments Left Leg Pain Auth/Cert Specialty Diagnoses / Procedures Referred By Contact Refer red To Contact Diagnoses Limb ischemia LLE thrombus Fito Summers MD [facility] [place] [address] Referral ID Status Reason Start Date Expiration Date Visits Requ ested Visits Authorized [id number] 1 1 Encounter Details Date Type Department Care Team Description 05/20/2022 Surgery Admission Discharge Rn Abundio Mcguire , CARDIAC CATHETERIZATION [facility] [place] [address] CARDIOLOGY [phone] [place], [place] [address] (Wo rk) Social History Tobacco [...] onset Afib who presents in transfer from [facility] with acute limb ischemia of the [...] emergently went to the OR for L FOOD CHECKERS AND CASHIERS SUPERVISOR transverse arteriotomy and primary repair, thromboembolectomy of L SFA/PFA/FOOD CHECKERS AND CASHIERS SUPERVISOR, reperfusion venous drainage for 250 cc, and [...] Discharge Condition: Good Discharge to: Home with [address] [address] Future Appointments and Orders Future Appointments and Orders Future Appointments Provider Department Dept Phone 05/23/2022 10:30 AM Loretta Cohen MD Dermatology at [facility] Arrive at: Lead Clinical Research Coordinator [address] [place] [address] 06/07/2022 1:30 PM Gail Rae APRN Vascular Surgery at [facility] Arrive at: Lead Clinical Research Coordinator [address] [phone] 06/13/2022 7:30 AM Edson Lagos [place] Vascular Lab at [facility] Arrive at: Lead Clinical Research Coordinator Area 06/13/2022 8:00 AM Fito Summers MD Vascular Surgery at [facility] Arrive at: Lead Clinical Research Coordinator Area 3V [phone] 06/13/2022 10:00 AM Alan Reid MD Cardiology at [facility] Arrive at: Lead Clinical Research Coordinator Area [phone] Future Orders Complete By Expires Ziopatch 48 Hrs-15 Days [[id number] CPT(R)] 05/21/2022 11/20/2022 Process Instructions: Scheduling Instructions: Comments: Questions: Does the patient have a pacemaker? If yes provide HI/LO settings: Apply for 7 or 14 days?: 7 Where will study be performed?: [facility] Clinics JOSSELYN, legs, multiple levels [VAS8 Custom] 06/21/2022 (Approximate) 12/21/2022 Process Instructions: There is no in-house vascular cath lab available on weeknights (5pm-8am), weekends, or holidays. IF THIS IS A REQUEST FOR AN EMERGENT STUDY DURING THOSE HOURS, please have the senior provider responsible for the patient page the Vascular Surgery Fellow/Senior Resident manager animation to discuss options. Scheduling Instructions: Questions: Indication for study/signs & symptoms: ALI s/p L fem cutdown with thromboembolectomy Question to be answered: Perfusion to feet? Please check toe pressure Preferred location?: [facility] Clinics Referral to Cardiology [REF12 Custom] As [...] Koko Zamora for admission to Home Health. [address] [place] [phone] (home) Date of : 1940 Inpatient DOCUMENTATION FOR VNA SERVICES (INCLUDING THOSE PATIENTS WITH MEDICARE COVERAGE REQUIRING HOME VNA SERVICES AND/OR HOSPICE SERVICES) PATIENT'S LOCATION: Koko Zamora [address] [place] [phone] (home) Cell: No relevant phone numbers on file. Archivist Military History's Name: Koko In discussion with the attending physician, it is certified that this patient is under their care and that they, or a Nurse Practitioner,Clinical Nurse specialist or Physician Tipple Supervisor who is working directly with them, had [...] for managing ADL's. HOME HEALTH CARE AGENCY: [facility]. [address] [place] [address] Start of care: Within 24 to 48 [...] obtained from this patient'sPCP: Bobby Das MD [address] [place] [address] [place] [address] All VNA agencies which [...] For any problems or questions please call [phone] For issues on weeknights after 5pm and weekends please call [phone] and ask for the Vascular Fellow manager animation. JOSEE Santiago Vascular Surgery 05/21/2022 documented in [...] For any problems or questions please call [phone] For issues on weeknights after 5pm and weekends please call [phone] and ask for the Vascular Fellow manager animation. documented in this encounter Medications at Time [...] 04/12/20 21 (FLONASE) 50 mcg/actuation Nare route [place], Suspension daily as needed. fluorouraciL (EFUDEX) 5 [...] onset Afib who presents in transfer from [facility] with acute limb ischemia of the [...] status, full code. JOSEE Santiago 05/21/2022 Pager: [phone] Brannon Isaacs, PT - 05/21/2022 10:35 AM [...] plan as stated. Time IN / OUT: 6300-3973 Total Minutes, Physical Therapy: 25 Billing Code: 2 BOSTON Isaacs DPT Pager: [phone] Physical Therapy Inpatient Rehabilitation Department [place] Jean [...] 04/17/2021 in Pain and Spine Center at [facility] Weight 79.8 kg (175 lb 14.8 oz) [...] and plan of care per Dr. Mcnamara (healthcare analyst). Please refer to her note above [...] limb ischemia (thromboembolic) and he is a halfway smoker (1/2 ppd, recommend nicotine patch). His [...] to Hosp-Admission (Current) from 05/15/2022 in 4 [facility] Office Visit from 04/17/2021 in Pain and Spine Center at [facility] Weight 79.8 kg (175 lb 14.8 oz) [...] findings andplan of care per Dr. Mcnamara (healthcare analyst). Please refer to her note above [...] a mitral repair in 2000 (not at [facility]) with no CAD at that time. Currently, [...] AF and the first documented HR at [facility] was 125 bpm (presented to an an [...] onset Afib who presents in transfer from [facility] with acute limb ischemia of the [...] management following Dottie Hill APRN 05/20/2022 Pager: [phone] Laney Atkins RN - 05/20/2022 1:14 AM EDT Pt Koko transferred to room from [facility]. A&Ox4, oriented to room and call boo. Masimo and telemetry placed. In agreement with assessment as documented this evening by Nuris ASHLEY. No complaints at this time. Pt aware of NPO status and plan for cardiac cath in AM. Urinal provided. Resting comfortably in bed. Nuris Lester RN - 05/20/2022 1:09 AM EDT Pt. Transferred to [facility]. RN accompanied patient to floor and handed off to [facility] RN Dottie Hill APRN - 05/19/2022 10:02 AM EDT Vascular Surgery Progress Note Koko Zamora is a 81 y.o. male with w new onset Afib who presents in transfer from [facility] with acute limb ischemia of the LLE. ?? The patient had sudden pain starting at 630 05/15/22, he presented [facility] where he was placed on heparin. [...] management following Dottie Hill APRN 05/19/2022 Pager: [phone] Emily Sauceda RN - 05/19/2022 6:28 AM EDT OUTCOME EVALUATION NOTE: OUTCOME SUMMARY: Patient AOx4, VSS on RA. Afib on tele. HR controlled w/ PRN metop, given x2. Denies CP, SOB, n/v. See flowsheets for NVC. Dressings to LLE CDI, prevena WV to groin intact. Voiding to urinal. LBM EQUIPMENT PLANNER, patient stating he will maybe try the [...] adequately without difficulty to bedside urinal. LBM EQUIPMENT PLANNER. Up to chair this AM with nursing staff. Worked with PT, tolerated well. Diet changed to regular at 1800.Plan is for cardiac cath on Friday. PLAN MOVING FORWARD: Bleeding precautions Pain management neurovascular checks PT/OT laboratory animal facility supervisor INDIVIDUALIZED FALL PREVENTION INTERVENTIONS: Patient-specific fall [...] onset Afib who presents in transfer from [facility] with acute limb ischemia of the [...] mL Intravenous BID ??? PHENobarbitaL 0.12 mg/kg/dose ([place]) Oral BID ??? thiamine 100 mg Oral [...] management following Dottie Hill APRN 05/18/2022 Pager: [phone] Brannon Isaacs, PT - 05/18/2022 10:00 AM [...] IR Biopsy Spine 07/20/2019 Bobby Marshall MD [facility] INTERVENTIONL RAD ??? IR VERTEBROPLASTY LUMBAR MULTIPLE LEVELS 07/20/2019 IR Vertebroplasty Lumbar Multiple Levels 07/20/2019 Bobby Marshall MD [facility] INTERVENTIONL RAD ??? IR VERTEBROPLASTY THORACIC SINGLE LEVEL 10/25/2020 IR Vertebroplasty Thoracic Single Level 10/25/2020 Matt Chisholm MD [facility] INTERVENTIONL RAD ??? PRO EMBLC/THRMBC FEMORAL POPLITEAL AORTO-ILIAC ARTERY Left 05/15/2022 EMBOLECTOMY OR THROMBECTOMY, FEMOROPOPLITEAL, AORTOILIAC ARTERY BY LEG INCISION (WRVU 19.48) performed by Fito Summers MD at [facility] MAIN OR Social History: Pt lives [...] in this evaluation. Time IN / OUT: 5156-9362 Total Minutes, Physical Therapy: 30 Billing Code: Basilio Isaacs, PT Pager: [phone] Physical Therapy Inpatient Rehabilitation Department Emily Sauceda RN - 05/18/2022 4:34 AM EDT OUTCOME EVALUATION NOTE: OUTCOME SUMMARY: Patient AOx4, VSS on 2LNC. Afib on tele. HR above 120, MD aware, PRN IV metop given x1, HR returned to 90's-low 100's. Denies CP, SOB, n/v. See flowsheets for NVC. Dressings to LLE CDI, prevena WV to groin intact. Voiding to urinal. LBM EQUIPMENT PLANNER. Heparin gtt therapeutic. Pain controlled. Patient sleeping [...] adequately without difficulty to bedside urinal. LBM EQUIPMENT PLANNER. Patient not OOB this shift. Currently NPO awaitingprocedure in director geophysical laboratory. PLAN MOVING FORWARD: Bleeding precautions Pain management neurovascular checks PT/OT NPO for director geophysical laboratory INDIVIDUALIZED FALL PREVENTION INTERVENTIONS: Patient-specific fall [...] the Emergency Department as a transfer from [facility] with left lower extremity limb ischemia. He went to [facility] and was startedon heparin and transferred to [facility] for evaluation by vascular surgery with [...] he will will be going to the director geophysical laboratory for evaluation. Will defer PT eval at present but will see as ordered post cardiac catheritizaton. Social Hx:Pt lives with his Ursula in [place], [place] in a 2 level home in [...] WBAT LLE LISBET HERMAN PT Pager # [phone] In-Pt Rehab Medicine Dottie Hill APRN - 05/17/2022 7:42 AM EDT Vascular Surgery Progress Note Koko Zamora is a 81 y.o. male with w new onset Afib who presents in transfer from [facility] with acute limb ischemia of the [...] mL Intravenous BID ??? PHENobarbitaL 0.24 mg/kg/dose ([place]) Oral BID Followed by ??? [START ON 05/18/2022] PHENobarbitaL 0.12 mg/kg/dose ([place]) Oral BID ??? thiamine 100 mg Oral [...] management following Dottie Hill APRN 05/17/2022 Pager: [phone] Sary Dos Santos, RN - 05/17/2022 12:16 [...] onset Afib who presents in transfer from [facility] with acute limb ischemia of the [...] mL Intravenous BID ??? PHENobarbitaL 0.48 mg/kg/dose ([place]) Oral BID Followed by ??? [START ON 05/17/2022] PHENobarbitaL 0.24 mg/kg/dose ([place]) Oral BID Followed by ??? [START ON 05/18/2022] PHENobarbitaL 0.12 mg/kg/dose ([place]) Oral BID ??? thiamine 100 mg Oral [...] management following Edward Rodríguez MD 05/16/2022 Pager: [phone] Sary Dos Santos RN - 05/16/2022 12:52 [...] met 2129 Hand off to DION Ramirez harlingen documented in this encounter H&P Notes Kerry [...] onset Afib who presents in transfer from [facility] with acute limb ischemia of the [...] IR Biopsy Spine 07/20/2019 Bobby Marshall MD [facility] INTERVENTIONL RAD ??? IR VERTEBROPLASTY LUMBAR MULTIPLE LEVELS 07/20/2019 IR Vertebroplasty Lumbar Multiple Levels 07/20/2019 Bobby Marshall MD [facility] INTERVENTIONL RAD ??? IR VERTEBROPLASTY THORACIC SINGLE LEVEL 10/25/2020 IR Vertebroplasty Thoracic Single Level 10/25/2020 Matt Chisholm MD [facility] INTERVENTIONL RAD Social Hx: Social History [...] Refill ??? fluticasone propionate (FLONASE) 50 mcg/actuation [place], Suspension as needed. ??? fluorouraciL (EFUDEX) 5 [...] and consented. Tim Chicas MD 05/15/2022 Pager: [phone] documented in this encounter ED Notes Lc [...] was started on heparin and transferred to [facility] for evaluation by vascular surgery. Review [...] of the left lower extremity. Vascular surgery [facility] was contacted and he was transferred here [...] orders before pt. Arrival. Pt. Arrived at [facility] by EMS at 1150, vascular team at [...] in an outpatient cardiac rehabilitation program at [facility] was discussed. Patient agrees to a referral to this program. Timing will depend on his recovery from Vascular surgery. He is going home w/VNA PT. I gave him the brochure for the program at [facility] for future reference. Care Management Discharge [...] information for follow-up Home Health & Hospice, [place] [address] [place] [address] Transportation: family or friend will provide Functional [...] / Secondary Insurance: [facility] Prescription Coverage: Yes This plan was formulated with input from patient and team. All are in agreement with plan. IP RS has communicated with Wendell - for initial IMM. Shawn López RN (Jonas) RN/CM - Cellphone: [phone] Pager: [phone] Covering Service RN/CM Plan of Care - [...] catheterization, transferred in hospital bed accompanied by Admission Discharge Rn RN, remains on telemetry monitoring. Heparin gtt [...] / Secondary Insurance: [facility] Last Physical Therapy Recommendation: home with home health, home with supervision with None Last Occupational Therapy Recommendation: with Plan for discharge is: Home w/ Services Outpatient Agency/Support Group Needs: None Home Health Services: Registered Nurse, Physical Therapy, Occupational Therapy Agency Referrals: I have met with the patient to: ?? discuss discharge planning needs. ?? provide the [facility], Office of Care Management letter from the [employer] pertaining to rehab referrals. ?? provide a letter describing our affiliations within the [facility] and educate about their right to choose where referrals are sent. ?? provide a list of Home Health Agencies / Durable Medical Equipment vendors which serve their preferred geographic area. ?? provided patient with [facility] Star Quality Rating handout. They have requested referrals to: [facility] [email or web address]. [address] [place] [address] Note routed to a Beam Racker who will communicate referrals to facilities and provide any required information. Transportation: family or friend will provide Barriers to discharge: None Plan going forward: Patient is going for a cardiac cath today and plan will come from there. Patientwas recently seen by PT and they recommend VNA at time of discharge. [place] was routed and pendedat this time. Care Management will continue to follow and assist with discharge planning and coordination of care as indicated. Anticipated Date of Discharge: 05/21/2022 Nataly RICHMOND RN Phone: [phone] Pager: [phone] Plan of Care - Laney Atkins RN [...] original note were not included. [facility] [place] [address] INPATIENT CARDIOLOGY CONSULT NOTE Date of Consultation: 05/17/2022 Admit Date: 05/15/2022 Hospital Day 2 days Reason for Consult: New afib Active Problems: Active Hospital Problems Diagnosis Limb ischemia Resolved Hospital Problems No resolved problems to display. HPI: Koko Zamora is a 81 y.o. male with a PMHx significant for MVP (s/p MV repair 2000), tobacco use, HLD, who presented to [facility] from OSH on 05/15 with acute limb ischemia of LLE and was found to be in atrial fibrillation. Patient had sudden onset LLE pain on 05/15 and presented to [facility], where he was started on heparin and transferred to [facility]. Upon arrival to [facility], patient was in atrial fib with RVR [...] IR Biopsy Spine 07/20/2019 Bobby Marshall MD [facility] INTERVENTIONL RAD IR VERTEBROPLASTY LUMBAR MULTIPLE LEVELS 07/20/2019 IR Vertebroplasty Lumbar Multiple Levels 07/20/2019 Bobby Marshall MD [facility] INTERVENTIONL RAD IR VERTEBROPLASTY THORACIC SINGLE LEVEL 10/25/2020 IR Vertebroplasty Thoracic Single Level 10/25/2020 Matt Chisholm MD [facility] INTERVENTIONL RAD PRO EMBLC/THRMBC FEMORAL POPLITEAL AORTO-ILIAC ARTERY Left 05/15/2022 EMBOLECTOMY OR THROMBECTOMY, FEMOROPOPLITEAL, AORTOILIAC ARTERY BY LEG INCISION (WRVU 19.48) performed by Fito Summers MD at [facility] MAIN OR Allergies Allergen Reactions Aspirin Other (See Comments) GI bleed Out-Patient Medications: Medications Prior to Admission Medication Sig Dispense Refill Last Dose fluorouraciL (EFUDEX) 5 % Cream daily. CRESTOR 40 mg Tablet Take 40 mg by mouth daily. fluticasone propionate (FLONASE) 50 mcg/actuation [place], Suspension as needed. ascorbic acid, vitamin C, [...] 5 mL Intravenous BID PHENobarbitaL 0.24 mg/kg/dose ([place]) Oral BID Followed by [START ON 05/18/2022] PHENobarbitaL 0.12 mg/kg/dose ([place]) Oral BID thiamine 100 mg Oral Daily folic acid 1,000 mcg Oral Daily multivitamin with minerals 1 tablet Oral Daily heparin (porcine) infusion 1,200 Units/hr (05/17/22 2647) Family History: No family history on file. [...] ED to Hosp-Admission (Current) from 05/15/[address] [place] [address] Office Visit from 04/17/2021 in Pain and Spine Center at [facility] Weight 79.8 kg (175 lb 14.8 oz) [...] continue to follow Anne-Marie Larson MD Pager [phone] Clinic: [phone] 05/17/22 6:22 PM Initial Assessments - Ifrah [...] spouse would be surrogate decision maker per [place] surrogate decision making law. (Only good for 180 days) Any patient receiving care at [facility] must abide by [place] law. The hierarchy for surrogate decision making [...] (i) The agent with financial power of furnace mechanic or a conservator appointed in accordance [...] raised toilet seat Home Address confirmed as: [address] [place] [phone] Social & Family Supports: All names listed below confirmed with patient as Incorrect. Will notify toni to correct. Wifes address is same as and phone is [phone]. Extended Emergency Contact Information Primary Emergency Contact: Ursula Zamora Address: [address] [place] [address] [address] [place] [address] [facility] Relation: Spouse Current Care Provided by: [...] / Secondary Insurance: [facility] Prescription Coverage: Yes Preferred Pharmacy: [id number] - [place], [place] - [address] [facility] [address] [place] [address] [facility] - [place], [place] - [address] [facility] [address] [facility] [address] [place] Status: Patient is a : unable to assess Primary Care Provider: Bobby Das MD [phone] Patient/Caregiver Goals of Treatment: to walk again Potential Needs for Transition of Care: none noted per 05/16 IDR Transportation: family will provide Transportation Anticipated: family or friend will provide Concerns to be Addressed: no discharge needs identified Assessment: Patient is admitted to vascular surg service for left lower extremity limb ischemia Plan: Per PT OT recommendations . Has used [employer]-Files in the past. A member of the Care Management team will continue to monitor progress, follow for continuity of care and assist with transition of care planning. Ifrah Bell RN BSN Senior Computer SpecialistLining Feller of Care Management Pager [phone] Brief Op Note - Erin Garza MD - 05/15/2022 5:04 PM EDT Brief Operative Note Patient Name: Koko Zamora : [id number] MR#: [id number] Case Date: 05/15/2022 Surgeon: Surgeon(s) and Role: [...] Garza MD - 05/15/2022 2:08 PM EDT [facility] Operative Note Patient Name: Koko Zamora : [id number] MR#: [id number] Case Date: 05/15/2022 Surgeon: Surgeon(s) and Role: [...] Collins MD [facility] DR GASTROENTEROLOGY DEPT [place], [place] 0[address] (Wo rk) 09/05/2022 Appointment Cardiology Trinity Reid MD [facility] CARDIOLOGY [place], [place] [address] (Wo rk) 09/05/2022 Office Visit Cardiology Trinity Reid MD [facility] CARDIOLOGY [place], [place] [address] (Wo rk) Scheduled Referrals Name [...] Test Analysis Performed At [facility] Range Method Time Signature VB Text Department: Vascular Surgery Lab VASCUBASE Report Patient: [id number] (KOKO ZAMORA) CPT: 40078 Referring Physician: FITO SUMMERS ?? Phone: Indications: s/p L FOOD CHECKERS AND CASHIERS SUPERVISOR endart. Diabetes mellitus: no Findings: Right [...] P athologist Signature Heparin UFH 0.42 IU/mL [facility] LABORATORY Comment: Heparin (anti-Xa) levels [...] Organization Address City/State/[place] [address] Differential, Automated (05/21/2022 6:15 AM EDT) P athologist Signature Neutrophils % 58.8 % [facility] LABORATORY Neutr Abs (ANC) 3.97 1.70 - [facility] 6.10 [facility] x10(3)[facility] LABORATORY Lymphocytes % 25.2 % [facility] LABORATORY Lymphocytes Abs 1.7 0.9 - 3.2 [facility] x10(3)[facility] LABORATORY Monocytes % 12.9 % [facility] LABORATORY Monocyte Abs 0.9 0.3 - 0.9 [facility] x10(3)[facility] LABORATORY Eosinophils % 2.1 % [facility] LABORATORY Eosinophils Abs 0.1 0.0 - 0.4 [facility] x10(3)[facility] LABORATORY Basophils % 0.4 % [facility] LABORATORY Basophils Abs 0.0 0.0 - 0.1 [facility] x10(3)[facility] LABORATORY Immature Gran % 0.60 % [facility] [...] 0.04 x10(3)/[facility] LABORATORY Specimen Anatomical Collection Method Collection Time Receive d Time (Source) Location / / Volume Laterality Blood 05/21/2022 6:15 AM 2 6:38 EDT AM EDT Resulting Agency Comment Spec In Lab Edward Rodríguez MD HEMATOLOGY ORDERABLES Performing Organization Address City/State/[place] [address] (ABNORMAL) Hemogram (05/21/2022 6:15 AM EDT) [facility] Method Time Signature WBC 6.8 4.0 - 9.5 [facility] x10(3)/[facility] LABORATORY RBC 3.59 (L) 4.58 - [facility] 5.54 [facility] x10(6)/[facility] LABORATORY Hemoglobin 11.8 (L) 13.7 - [facility] 16.5 g/dL [facility] LABORATORY Hematocrit 34.5 (L) 40.5 - [facility] 48.5 % [facility] MCV 96.1 (H) 82.9 - [facility] 93.1 [facility] LABORATORY MCH 32.9 (H) 27.5 - [facility] 32.1 pg [facility] LAB[facility] MCHC 34.2 32.0 - [facility] 35.7 g/dL [facility] LAB[facility] Platelets 198 145 - 357 [facility] x10(3)/[facility] LABORATORY RDWSD 44.9 36.0 - [facility] 45.0 [facility] LABORATORY RDWCV 12.6 11.4 - [facility] 13.8 % [facility] MPV 10.0 7.6 - 12.9 [facility] LABORATORY nRBC % Auto 0.3 % [facility] nRBC Abs Auto 0.020 (H) 0.000 - [facility] 0.000 [facility] x10(3)/[facility] LABORATORY Specimen Anatomical Collection Method Collection Time Receive d Time (Source) Location / / Volume Laterality Blood 05/21/2022 6:15 AM 2 6:38 EDT AM EDT Resulting Agency Comment Spec In Lab Edward Rodríguez MD HEMATOLOGY ORDERABLES Performing Organization Address City/State/ZIP Code Phon e Number [place] [id number]OSP[address] LAB[address]ATORY Drive EKG 12 Lead (05/20/2022 7:04 PM EDT) Component Value Ref Range Test Analysis Performed Pathologis t Method Time At Signature Ventricular rate 101 BPM MUSE SYSTEM QRS Duration 116 ms MUSE SYSTEM Q-T Interval 378 ms MUSE SYSTEM QTC Calculated 490 ms MUSE SYSTEM (Bezet) Calculated R Ariton -53 degrees MUSE SYSTEM Calculated T Ariton 101 degrees MUSE SYSTEM INTERPRETATION Atrial fibrillation [...] Laterality Volume Narrative 05/20/2022 7:09 PM EDT ?[facility] ? Cardiac Cathete rization/Intervention Report ? Patient Name: Koko Zamora. ? Procedure Date: 05/20/2022 ? A #: [id number] ? Primary Physician: Abundio Servin ? Case #: [id number] ? File Name: [id number] ? Catheterization Order Number: [id number] ? [facility] ? Final Report [place], [place] ? Patient Name: ? Koko J. Klarissa uson ? ID#: ?[id number] ? : ?1940 ? Procedure Date: ? [...] procedure was Urgent. The indication for ?the director geophysical laboratory visit is cardiomyo nita. Chest pain [...] ?3.5 guiding catheter and a 3.5 Fr [facility] [place] [address] ??20 Mhz. ??Imaging ?was successful. ??Image [...] premounted 2. 75 x 30 mm [place] (AMPARO) was deployed ? with a maximum [...] may require ?modification of this regimen. C [facility] Interventional Cardiology for ?questions. ?The 1 [...] note might be different from the original. [facility] Cardiac Catheterization/Intervention Re port Patient Name: Koko Zamora Procedure Date: 05/20/2022 A #: [id number] Primary Physician: Abundio Servin Case #: File Name: [id number] Catheterization Order Number: [id number] [facility] Final Report [place], [place] Patient Name: Koko Zamora ID#: [id number] : 1940 Procedure Date: May 20, 2022 [...] e was Urgent. The indication for the director geophysical laboratory visit is cardiomyopathy. C hest pain symptom [...] 3.5 guiding catheter and a 3.5 Fr [facility] [place] [address] 20 Mhz. Imaging was successful. Image [...] A premounted 2.75 x 30 mm [place] (AMPARO) was deployed with a maximum inflation [...] modification of this regimen. Consult D [facility] Interventional Cardiology for [...] Signature POC Glucose 123 65 - 199 [facility]dL [facility] Comment: Supplemental ranges: <140 mg/dL before meals <180 mg/dL all other times of the day Specimen Anatomical Collection Method Collection Time Receive d Time (Source) Location / / Volume Laterality Blood 05/20/2022 5:42 PM 2 5:42 EDT PM EDT Fito Summers MD POINT OF CARE TEST ORDERABLE S Performing Organization Address City/State/[place] [address] (ABNORMAL) BMP w/fasting Glucose (05/20/2022 10:50 AM EDT) P athologist Signature Glucose 152 (H) 65 - 99 [facility] Fasting mg/dL [facility] Comment: ?Fasting* Glucose Interpretive C [...] Mellitus, Position Statement from the [place] [employer]. ??Diabete s Care, Volume 33, Supplement 1, Nov 2009 BUN 11 10 - 20 mg/dL [facility] Creatinine 0.63 (L) 0.80 - 1.50 mg/dL [facility] Sodium 137 135 - [...] Organization Address City/State/[place] [address] Heparin (unfractionated) Level (05/20/2022 5:02 AM EDT) P athologist Signature Heparin UFH 0.57 IU/mL [facility] LABORATORY Comment: Heparin (anti-Xa) levels [...] Organization Address City/State/[place] [address] (ABNORMAL) Differential, Automated (05/20/2022 5:02 AM EDT) Patholo gist Method Time Signature Neutrophils % 58.1 % [facility] Neutr Abs (ANC) 4.52 1.70 - [facility] 6.10 [facility] x10(3)/[facility] LABORATORY Lymphocytes % 24.1 % [facility] Lymphocytes Abs 1.9 0.9 - 3.2 [facility] x10(3)/[facility] LABORATORY Monocytes % 13.8 % [facility] Monocyte Abs 1.1 (H) 0.3 - 0.9 [facility] x10(3)/[facility] LABORATORY Eosinophils % 2.6 % [facility] Eosinophils Abs 0.2 0.0 - 0.4 [facility] x10(3)[facility] LABORATORY Basophils % 0.8 % [facility] Basophils Abs 0.1 0.0 - 0.1 [facility] x10(3)/[facility] LABORATORY Immature Gran % [...] Organization Address City/State/[place] [address] (ABNORMAL) Hemogram (05/20/2022 5:02 AM EDT) Analysis Performed At Patho logist Time Signature WBC 7.8 4.0 - 9.5 [facility] x10(3)/[facility] LABORATORY RBC 3.53 (L) 4.58 - [facility] 5.54 [facility] x10(6)/[facility] LABORATORY Hemoglobin 11.4 (L) 13.7 - [facility] 16.5 g/dL [facility] Hematocrit 34.3 (L) 40.5 - [facility] 48.5 % [facility] MCV 97.2 (H) 82.9 - [facility] 93.1 [facility] LABORATORY MCH 32.3 (H) 27.5 - [facility] 32.1 pg [facility] MCHC 33.2 32.0 - [facility] 35.7 g/dL [facility] Platelets 181 145 - 357 [facility] x10(3)/[facility] LABORATORY RDWSD 46.4 (H) 36.0 - [facility] 45.0 [facility] LABORATORY RDWCV 13.0 11.4 - [facility] 13.8 % [facility] MPV 10.4 7.6 - 12.9 [facility] LABORATORY nRBC % Auto 0.0 % [facility] nRBC Abs Auto 0.000 0.000 - [facility] 0.000 [facility] x10(3)/[facility] LABORATORY Specimen Anatomical Collection Method Collection Time Receive d Time (Source) Location / / Volume Laterality Blood 05/20/2022 5:02 AM 2 5:19 EDT AM EDT Resulting Agency Comment Spec In Lab Edward Rodríguez MD HEMATOLOGY ORDERABLES Performing Organization Address City/State/[place] [address] Heparin (unfractionated) Level (05/19/2022 3:26 AM EDT) P athologist Signature Heparin UFH 0.59 IU/mL [facility] LABORATORY Comment: Heparin (anti-Xa) levels [...] Organization Address City/State/[place] [address] (ABNORMAL) Differential, Automated (05/19/2022 3:26 AM EDT) [facility] Method Time Signature Neutrophils % 62.1 % [facility] Neutr Abs (ANC) 4.59 1.70 - [facility] 6.10 [facility] x10(3)/[facility] LABORATORY Lymphocytes % 22.1 % [facility] Lymphocytes Abs 1.6 0.9 - 3.2 [facility] x10(3)/[facility] LABORATORY Monocytes % 13.5 % [facility] Monocyte Abs 1.0 (H) 0.3 - 0.9 [facility] x10(3)/[facility] LABORATORY Eosinophils % 1.3 % [facility] Eosinophils Abs 0.1 0.0 - 0.4 [facility] x10(3)/[facility] LABORATORY Basophils % 0.5 % [facility] Basophils Abs 0.0 0.0 - 0.1 [facility] x10(3)/[facility] LABORATORY Immature Gran % [...] 0.04 x10(3)/[facility] LABORATORY Specimen Anatomical Collection Method Collection Time Receive d Time (Source) Location / / Volume Laterality Blood 05/19/2022 3:26 AM 2 3:59 EDT AM EDT Resulting Agency Comment Spec In Lab Edward Rodríguez MD HEMATOLOGY ORDERABLES Performing Organization Address City/State/[place] [address] (ABNORMAL) Hemogram (05/19/2022 3:26 AM EDT) Analysis Performed At [facility] logist Time Signature WBC 7.4 4.0 - 9.5 [facility] x10(3)/[facility] LABORATORY RBC 3.74 (L) 4.58 - [facility] 5.54 [facility] x10(6)/[facility] LABORATORY Hemoglobin 12.1 (L) 13.7 - [facility] 16.5 g/dL [facility] Hematocrit 36.4 (L) 40.5 - [facility] 48.5 % [facility] MCV 97.3 (H) 82.9 - [facility] 93.1 [facility] LABORATORY MCH 32.4 (H) 27.5 - [facility] POWELLCK 32.1 pg [facility] MCHC 33.2 32.0 - [facility]AG[facility] 35.7 g/dL [facility] Platelets 168 145 - 357 [facility] x10(3)/[facility] LABORATORY RDWSD 46.9 (H) 36.0 - [facility] 45.0 [facility] LABORATORY RDWCV 13.0 11.4 - [facility] 13.8 % [facility] MPV 10.5 7.6 - 12.9 [facility] fL [facility] nRBC % Auto 0.0 % [facility] nRBC Abs Auto 0.000 0.000 - [facility] 0.000 [facility] x10(3)/[facility] LABORATORY Specimen Anatomical Collection Method Collection Time Receive d Time (Source) Location / / Volume Laterality Blood 05/19/2022 3:26 AM 3:59 EDT AM EDT Resulting Agency Comment Spec In Lab Edward Rodríguez MD HEMATOLOGY ORDERABLES Performing Organization Address City/State/[place] [address] TSH (05/18/2022 8:00 PM EDT) P athologist Signature TSH 2.27 0.27 - 4.20 [facility] mcIU/mL [facility] Comment: Reference Interval (mcIU/mL): Females: ??First Trimester: 0.23-3.88 ??Second Trimester: 0.22-3.90 ??Third Trimester: 0.44-4.66 Specimen Anatomical Collection Method Collection Time Receive d Time (Source) Location / / Volume Laterality Blood 05/18/2022 8:00 PM 2 8:06 EDT PM EDT Resulting Agency Comment Spec In Lab Fito Summers MD CHEMISTRY ORDERABLES Performing Organization Address City/State/[place] [address] (ABNORMAL) Differential, Automated (05/18/2022 3:34 AM EDT) [facility] Method Time Signature Neutrophils % 67.2 % [facility] Neutr Abs (ANC) 5.89 1.70 - [facility] 6.10 [facility] x10(3)/[facility] LABORATORY Lymphocytes % 17.1 % [facility] Lymphocytes Abs 1.5 0.9 - 3.2 [facility] x10(3)/[facility] LABORATORY Monocytes % 13.6 % [facility] Monocyte Abs 1.2 (H) 0.3 - 0.9 [facility] x10(3)/[facility] LABORATORY Eosinophils % 1.0 % [facility] Eosinophils Abs 0.1 0.0 - 0.4 [facility] x10(3)/[facility] LABORATORY Basophils % 0.6 % [facility] Basophils Abs 0.0 0.0 - 0.1 [facility] x10(3)/[facility] LABORATORY Immature Gran % [...] Rain Gran Abs 0.04 0.00 - 0.04 x10(3)/[facility] LABORATORY Specimen Anatomical Collection Method Collection Time Receive d Time (Source) Location / / Volume Laterality Blood 05/18/2022 3:34 AM 2 3:48 EDT AM EDT Resulting Agency Comment Spec In Lab Edward Rodríguez MD HEMATOLOGY ORDERABLES Performing Organization Address City/State/[place] [address] (ABNORMAL) Hemogram (05/18/2022 3:34 AM EDT) Analysis Performed At Patho logist Time Signature WBC 8.8 4.0 - 9.5 [facility] x10(3)/[facility] LABORATORY RBC 3.45 (L) 4.58 - [facility] 5.54 [facility] x10(6)/[facility] LABORATORY Hemoglobin 11.2 (L) 13.7 - [facility] 16.5 g/dL [facility] Hematocrit 33.0 (L) 40.5 - [facility] 48.5 % [facility] MCV 95.7 (H) 82.9 - [facility] 93.1 [facility] LABORATORY MCH 32.5 (H) 27.5 - [facility] 32.1 pg [facility] MCHC 33.9 32.0 - [facility] 35.7 g/dL [facility] Platelets 130 (L) 145 - 357 [facility] x10(3)/[facility] LABORATORY RDWSD 46.2 (H) 36.0 - [facility] 45.0 [facility] LABORATORY RDWCV 13.2 11.4 - [facility] 13.8 % [facility] MPV 10.8 7.6 - 12.9 [facility] LABORATORY nRBC % Auto 0.0 % [facility] nRBC Abs Auto 0.000 0.000 - [facility] 0.000 [facility] x10(3)/[facility] LABORATORY Specimen Anatomical Collection Method Collection Time Receive d Time (Source) Location / / Volume Laterality Blood 05/18/2022 3:34 AM 3:48 EDT AM EDT Resulting Agency Comment Spec In Lab Edward Rodríguez MD HEMATOLOGY ORDERABLES Performing Organization Address City/State/[place] [address] Heparin (unfractionated) Level (05/18/2022 3:34 AM EDT) P athologist Signature Heparin UFH 0.59 IU/mL [facility] LABORATORY Comment: Heparin (anti-Xa) levels [...] Summers MD HEMATOLOGY ORDERABLES Performing Organization Address City/[facility]/[place] [address] Magnesium (05/17/2022 3:33 AM EDT) athologist Signature Magnesium 0.76 0.69 - 1.07 [facility] mmol/L [facility] Specimen Anatomical Collection Method Collection Time Receive d Time (Source) Location / / Volume Laterality Blood Venous Draw / 05/17/2022 3:33 AM 05/17/20 4:05 Unknown EDT AM EDT Resulting Agency Comment Spec In Lab [place] APRN CHEMISTRY ORDERABLES Performing Organization Address City/State/[place] [address] (ABNORMAL) Basic Metabolic Panel (non-fasting) (05/17/2022 3:33 AM EDT) athologist Signature Glucose Lvl 158 65 - 199 [facility] mg/dL [facility] Comment: Diabetes: >=200 mg/dL plus symp toms BUN 12 10 - 20 mg/dL [facility] Creatinine 0.74 (L) 0.80 - 1.50 mg/dL [facility] Sodium 137 135 - [...] Organization Address City/State/[place] [address] (ABNORMAL) Differential, Automated (05/17/2022 3:33 AM EDT) [facility] gist Method Time Signature Neutrophils % 65.5 % [facility] Neutr Abs (ANC) 6.84 (H) 1.70 - [facility] 6.10 [facility] x10(3)/[facility] LABORATORY Lymphocytes % 19.7 % [facility] Lymphocytes Abs 2.1 0.9 - 3.2 [facility] x10(3)/[facility] LABORATORY Monocytes % 13.1 % [facility] Monocyte Abs 1.4 (H) 0.3 - 0.9 [facility] x10(3)/[facility] LABORATORY Eosinophils % 0.6 % [facility] Eosinophils Abs 0.1 0.0 - 0.4 [facility] x10(3)/[facility] LABORATORY Basophils % 0.6 % [facility] Basophils Abs 0.1 0.0 - 0.1 [facility] x10(3)/[facility] LABORATORY Immature Gran % 0.50 % [...] Organization Address City/State/[place] [address] (ABNORMAL) Hemogram (05/17/2022 3:33 AM EDT) Analysis Performed At Patho logist Time Signature WBC 10.4 (H) 4.0 - 9.5 [facility] x10(3)/[facility] LABORATORY RBC 3.72 (L) 4.58 - [facility] 5.54 [facility] x10(6)/[facility] LABORATORY Hemoglobin 12.0 (L) 13.7 - [facility] 16.5 g/dL [facility] Hematocrit 36.4 (L) 40.5 - [facility] 48.5 % [facility] MCV 97.8 (H) 82.9 - [facility] 93.1 [facility] LABORATORY MCH 32.3 (H) 27.5 - [facility] 32.1 pg [facility] MCHC 33.0 32.0 - [facility] 35.7 g/dL [facility] Platelets 149 145 - 357 [facility] x10(3)/[facility] LABORATORY RDWSD 48.7 (H) 36.0 - [facility] 45.[address] [facility] [place] RDWCV 13.5 11.4 - [facility] 13.8 % [facility] MPV 10.6 7.6 - 12.9 [facility] LABORATORY nRBC % Auto 0.0 % [facility] nRBC Abs Auto 0.000 0.000 - [facility] 0.000 [facility] x10(3)/[facility] LABORATORY Specimen Anatomical Collection Method Collection Time Receive d Time (Source) Location / / Volume Laterality Blood 05/17/2022 3:33 AM 3:53 EDT AM EDT Resulting Agency Comment Spec In Lab Edward Rodríguez MD HEMATOLOGY ORDERABLES Performing Organization Address City/State/[place] [address] (ABNORMAL) Urinalysis Microscopic Exam [...] Organization Address City/State/ZIP Code Phon e Number [place] [id number] (ABNORMAL) Urinalysis with reflex Culture (05/16/2022 11:15 PM EDT) Patholo gist Method Time Signature Glucose UA Negative Negative [facility] mg/dL [facility] Protein UA Negative Negative [facility] mg/dL [facility] Bilirubin UA Negative Negative [facility] mg/dL [facility] Comment: Clinical correlation required for positi ve Urine Bilirubin results as false positive may occur with some drugs and d rug related products. If a false positive is suspected a serum total bili quarles should be considered if clinically indicated. Urobilinogen UA Normal Normal mg/dL [facility] pH UA 6.0 5.0 - 8.0 [facility] Blood UA Small (A) Negative mg/dL [facility] Ketones UA Trace (A) Negative mg/dL [facility] Nitrite UA Negative Negative [facility] Leukocytes UA Negative Negative [facility] LABORATORY Appearance UA Clear Clear [facility] Spec Todd UA 1.021 1.005 - 1.030 [facility] LABORATORY Color UA Yellow Yellow [facility] Culture Reflexed No [facility] LABORATORY Specimen Anatomical Collection Method Collection Time Receive d Time (Source) Location / / Volume Laterality Clean Catch 05/16/2022 11:15 05/16/2022 Urine PM EDT 11:30 PM EDT Resulting Agency Comment Spec In Lab Fito Summers MD URINE ORDERABLES Performing Organization Address City/State/[place] [address] Heparin (unfractionated) Level (05/16/2022 10:59 PM EDT) P athologist Signature Heparin UFH 0.65 IU/mL [facility] LABORATORY Comment: Specimen drawn more [...] Organization Address City/State/ZIP Code Phon e Number [place] [id number] HOSP[address] LAB[address] Drive XR Chest One View [...] questions please contact the health critical care educator that requested your imaging first. ? Electronically signed by: Tiffanie George MD , [facility] ([phone]), at 05/16/2022 9:27 PM Narrative 05/16/2022 9:27 [...] questions please contact the health critical care educator that requested your imaging first. Electronically signed by: Tiffanie George MD , [facility] ([phone]), at 05/16/2022 9:27 PM Fito Summers MD IMG DX ORDERABLES EKG 12 Lead (05/16/2022 8:57 PM EDT) Component Value Ref Range Test Analysis Performed Pathologis t Method Time At Signature Ventricular rate 117 BPM MUSE SYSTEM QRS Duration 112 ms MUSE SYSTEM Q-T Interval 346 ms MUSE SYSTEM QTC Calculated 482 ms MUSE SYSTEM (Bezet) Calculated R Ariton -48 degrees MUSE SYSTEM Calculated T Ariton 111 degrees MUSE SYSTEM INTERPRETATION Atrial fibrillation with rapid ventricular response MUSE SYSTEM Left anterior fascicular block Minimal voltage criteria for LVH, may be normal variant ( Philpot product ) Nonspecific ST and T wave [...] P athologist Signature Heparin UFH 0.53 IU/mL [facility] LABORATORY Comment: Heparin (anti-Xa) levels [...] Organization Address City/State/[place] [address] ECHOCARDIOGRAM COMPLETE W CONTRAST (05/16/2022 12:49 PM EDT) P athologist Signature EF 28 HEARTLAB SYSTEM Anatomical Region Laterality Modality Cardiac Other Specimen (Source) Anatomical Collection Method Collection Time Re ceived Time Location / / Volume Laterality 05/16/2022 11:22 AM EDT Narrative 05/16/2022 1:54 PM EDT ?[facility] ? [facility] ?[address] ? [place] [address] ?Voice: ?Fax: ? Echocardiogram Report Name: ZAMORAKOKO ?Study Date: 05/16/2022 11:22 AM ? Patient Location: 3WST 0303 B : 1940 ? Height: 67.5 in ? Account: [id number] Age: 81 yrs ? Weight: 176 lb [...] and LV systolic dysfunction are new. Procedure Complete-[id number]. Image enhancement Optiso n was used for [...] note might [place] [address] Voice: Fax: Echocardiogram Report Name: KOKO ZAMORA Study Date: 05/2022 11:22 AM Patient Location: [address] [place] [address] : 1940 Height: 67.5 in Account: [id number] Age: 81 yrs Weight: 176 lb Gender: [...] and LV systolic dysfunction are new. Procedure Complete-[id number]. Image enhancement Optiso n was used for [...] (05/16/2022 3:01 AM EDT) [facility] Method Time Signature Neutrophils % 78.8 % [facility] Neutr Abs (ANC) 9.11 (H) 1.70 - [facility] 6.10 [facility] x10(3)/[facility] LABORATORY Lymphocytes % 9.4 % [facility] Lymphocytes Abs 1.1 0.9 - 3.2 [facility] x10(3)/[facility] LABORATORY Monocytes % 10.9 % [facility] Monocyte Abs 1.3 (H) 0.3 - 0.9 [facility] x10(3)/[facility] LABORATORY Eosinophils % 0.0 % [facility] Eosinophils Abs 0.0 0.0 - 0.4 [facility] x10(3)/[facility] LABORATORY Basophils % 0.3 % [facility] Basophils Abs 0.0 0.0 - 0.1 [facility] x10(3)/[facility] LABORATORY Immature Gran % [...] Organization Address City/State/[place] [address] (ABNORMAL) Hemogram (05/16/2022 3:01 AM EDT) Analysis Performed At Patho logist Time Signature WBC 11.6 (H) 4.0 - 9.5 [facility] x10(3)/[facility] LABORATORY RBC 3.62 (L) 4.58 - [facility] 5.54 [facility] x10(6)/[facility] LABORATORY Hemoglobin 12.0 (L) 13.7 - [facility] 16.5 g/dL [facility] Hematocrit 35.3 (L) 40.5 - [facility] 48.5 % [facility] MCV 97.5 (H) 82.9 - [facility] 93.1 [facility] LABORATORY MCH 33.1 (H) 27.5 - [facility] 32.1 pg [facility] MCHC 34.0 32.0 - [facility] 35.7 g/dL [facility] Platelets 151 145 - 357 [facility] x10(3)/[facility] LABORATORY RDWSD 47.6 (H) 36.0 - [facility]0 [facility] LABORATORY RDWCV 13.3 11.4 - [facility] XIAO 13.8 % [facility] LABORATORY MPV 10.5 7.6 - 12.9 [facility] LABORATORY nRBC % Auto 0.0 % [facility] LABORATORY nRBC Abs Auto 0.000 0.000 - [facility] 0.000 [facility] x10(3)/[facility] LABORATORY Specimen Anatomical Collection Method Collection Time Receive d Time (Source) Location / / Volume Laterality Blood 05/16/2022 3:01 AM 2 3:36 EDT AM EDT Resulting Agency Comment Spec In Lab Erin Garza MD HEMATOLOGY ORDERABLES Performing Organization Address City/State/ZIP Code Phon e Number [address] Phosphorus (05/16/2022 3:01 AM EDT) athologist Signature Phosphorus 3.7 2.5 - 4.5 [facility] mg/dL [facility] LABORATORY Specimen Anatomical Collection Method Collection Time Receive d Time (Source) Location / / Volume Laterality Blood 05/16/2022 3:01 AM 2 3:36 EDT AM EDT Resulting Agency Comment Spec In Lab Fito Summers MD CHEMISTRY ORDERABLES Performing Organization Address City/[facility]/ZIP Code Phon e Number [address] Magnesium (05/16/2022 3:01 AM EDT) athologist Signature Magnesium 0.77 0.69 - 1.07 [facility] mmol/L [facility] LABORATORY Specimen Anatomical Collection Method Collection Time Receive d Time (Source) Location / / Volume Laterality Blood 05/16/2022 3:01 AM 2 3:36 EDT AM EDT Resulting Agency Comment Spec In Lab Fito Summers MD CHEMISTRY ORDERABLES Performing Organization Address City/[facility]/[place] [address] (ABNORMAL) Basic Metabolic Panel (non-fasting) (05/16/2022 3:01 AM EDT) P athologist Signature Glucose Lvl 222 (H) 65 - 199 [facility] mg/dL [facility] LABORATORY Comment: Diabetes: >=200 mg/dL plus symp toms BUN 12 10 - 20 mg/dL [facility] LABORATORY Creatinine 0.66 (L) 0.80 - 1.50 mg/dL [facility] LABORATORY Sodium 138 135 - [...] Organization Address City/State/[place] [address] (ABNORMAL) BLOOD GAS 2 ARTERIAL (05/15/2022 3:33 PM EDT) Analysis Performed At Patho logist Time Signature pH Art 7.33 (L) 7.35 - [facility] 7.45 [facility] LABORATORY pCO2 Art 41 35 - 45 [facility] mmHg [facility] LABORATORY pO2 Art 131 (H) 85 - 104 [facility] LABORATORY HCO3 Art 21.1 20.0 - [facility] 26.0 [facility] mmol/L [facility] LABORATORY BE Art -4.8 (L) -3.0 - 3.0 [facility] mmol/L [facility] LABORATORY Hgb Blood Gas 13.4 (L) 13.7 - [facility] 16.5 g/dL [facility] LABORATORY O2HB Art 96.9 94.0 - [facility] 97.0 % [facility] LABORAT[facility] COHB Art 1.4 % [facility] [place] [...] Blood 113 (H) 98 - 107 mmol/L [facility] LABORATORY Gluc Whole Bld 136 [...] Organization Address City/State/[place] [address] (ABNORMAL) BLOOD GAS 2 ARTERIAL (05/15/2022 2:06 PM EDT) Analysis Performed At Patho logist Time Signature pH Art 7.39 7.35 - [facility] 7.45 [facility] LABORATORY pCO2 Art 35 35 - 45 [facility] mmHg [facility] LABORATORY pO2 Art 135 (H) 85 - 104 [facility] LABORATORY HCO3 Art 20.8 20.0 - [facility] 26.0 [facility] mmol/L [facility] LABORATORY BE Art -4.2 (L) -3.0 - 3.0 [facility] mmol/L [facility] LABORATORY Hgb Blood Gas 14.5 13.7 - [facility] 16.5 g/dL [facility] LABORATORY O2HB Art 97.2 (H) 94.0 - [facility] 97.0 % [facility] LABORAT[facility] COHB Art 1.2 % [facility] [...] Blood 109 (H) 98 - 107 mmol/L [facility] LABORATORY Gluc Whole Bld 152 [...] Torre MD CHEMISTRY ORDERABLES Performing Organization Address City/[facility]/[place] [address] (ABNORMAL) Prothrombin Time (05/15/2022 12:30 PM EDT) P athologist Signature PT 12.9 (H) 9.4 - 12.5 [facility] LABORATORY INR 1.1 [facility] [...] Morales DO HEMATOLOGY ORDERABLES Performing Organization Address City/[facility]/[place] [address] (ABNORMAL) APTT (05/15/2022 12:30 [...] Daquan Andrew HEMATOLOGY ORDERABLES Performing Organization Address City/[facility]/ZIP Code Phon e Number [address] Gold Tube HOLD (05/15/2022 12:20 PM EDT) P athologist Signature Gold Hold Sample in [facility]. [facility] LABORATORY Specimen Anatomical Collection Method Collection Time Receive d Time (Source) Location / / Volume Laterality Blood No Charge / 05/15/2022 12:20 05/15/2022 Unknown PM EDT 12:20 PM EDT Lc TRIPP CHEMISTRY ORDERABLES Performing Organization Address City/[facility]/ZIP Code Phon e Number [address] Type and Screen Validity (05/15/2022 12:00 PM EDT) [facility] Method Time Signature T&S only valid [facility] at [facility] LABORATORY Comment: This Type and Screen result is only valid at the [facility] Hospital Specimen Anatomical Collection Method Collection Time Receive d Time (Source) Location / / Volume Laterality Blood 05/15/2022 12:00 05/15/2022 PM EDT 12:17 PM EDT Resulting Agency Comment Spec In Lab Lc Dominick Kimberly TRIPP BLOOD BANK ORDERABLES Performing Organization Address City/[facility]/ZIP Code Phon e Number [address] ABORH Recheck Status (05/15/2022 12:00 PM EDT) [facility] gist Method Time Signature ABORH Recheck Order Placed [facility] K [facility] LABORATORY ABORH Type Complete [facility] LABORATORY Specimen Anatomical Collection Method Collection Time Receive d Time (Source) Location / / Volume Laterality Blood 05/15/2022 12:00 05/15/2022 PM EDT 12:17 PM EDT Resulting Agency Comment Spec In Lab L[place] BLOOD BANK ORDERABLES Performing Organization Address City/[facility]/[place] [address] CK (05/15/2022 12:00 PM EDT) P athologist Signature CK, Total 87 0 - 200 [facility] unit/L [facility] LABORATORY Specimen Anatomical Collection Method Collection Time Receive d Time (Source) Location / / Volume Laterality Blood Venous Draw / 05/15/2022 12:00 05/15/2022 Unknown PM EDT 12:19 PM EDT Resulting Agency Comment Spec In Lab Fito Summers MD CHEMISTRY ORDERABLES Performing Organization Address City/State/[place] [address] Antibody screen (05/15/2022 12:00 PM EDT) [facility] Method Time Signature Ab Screen Negative [facility] LABORATORY Expires at 05/18/2022 [facility] 2359 on: [facility] LABORATORY Specimen Anatomical Collection Method Collection Time Receive d Time (Source) Location / / Volume Laterality Blood 05/15/2022 12:00 05/15/2022 PM EDT 12:17 PM EDT Resulting Agency Comment Spec In Lab Lc TRIPP BLOOD BANK ORDERABLES Performing Organization Address City/[facility]/[place] [address] ABO/Rh Typing (05/15/2022 12:00 PM EDT) P athologist Signature ABORh Type O Pos [facility] LABORATORY Specimen Anatomical Collection Method Collection Time Receive d Time (Source) Location / / Volume Laterality Blood 05/15/2022 12:00 05/15/2022 PM EDT 12:17 PM EDT Resulting Agency Comment Spec In Lab Lc TRIPP BLOOD BANK ORDERABLES Performing Organization Address City/[facility]/[place] [address] (ABNORMAL) Differential, Automated (05/15/2022 12:00 PM EDT) [facility] Method Time Signature Neutrophils % 79.4 % [facility] LABORATORY Neutr Abs (ANC) 7.49 (H) 1.70 - [facility] 6.10 [facility] x10(3)/[facility] LABORATORY Lymphocytes % 11.3 % [facility] LABORATORY Lymphocytes Abs 1.1 0.9 - 3.2 [facility] x10(3)/[facility] LABORATORY Monocytes % 7.8 % [facility] LABORATORY Monocyte Abs 0.7 0.3 - 0.9 [facility] x10(3)/[facility] LABORATORY Eosinophils % 0.6 % [facility] LABORATORY Eosinophils Abs 0.1 0.0 - 0.4 [facility] x10(3)/[facility] LABORATORY Basophils % 0.6 % [facility] LABORATORY Basophils Abs 0.1 0.0 - 0.1 [facility] x10(3)/[facility] LABORATORY Immature Gran % 0.30 % [facility] [...] 0.04 x10(3)/[facility] LABORATORY Specimen Anatomical Collection Method Collection Time Receive d Time (Source) Location / / Volume Laterality Blood 05/15/2022 12:00 05/15/2022 PM EDT 12:19 PM EDT Resulting Agency Comment Spec In Lab Lc TRIPP HEMATOLOGY ORDERABLES Performing Organization Address City/State/[place] [address] (ABNORMAL) Hemogram (05/15/2022 12:00 PM EDT) Analysis Performed At Patho logist Time Signature WBC 9.4 4.0 - 9.5 [facility] x10(3)/[facility] LABORATORY RBC 4.48 (L) 4.58 - [facility] 5.54 [facility] x10(6)/[facility] LABORATORY Hemoglobin 14.5 13.7 - [facility] 16.5 g/dL [facility] Hematocrit 42.4 40.5 - [facility] 48.5 % [facility] MCV 94.6 (H) 82.9 - [facility] 93.1 [facility] LABORATORY MCH 32.4 (H) 27.5 - [facility] 32.1 pg [facility] LABORAT[facility] MCHC 34.2 32.0 - [facility] 35.7 g/dL [facility] LAB[facility] Platelets 209 145 - 357 [facility] x10(3)/[facility] LABORATORY RDWSD 45.9 (H) 36.0 - [facility] 45.0 [facility] LABORATORY RDWCV 13.1 11.4 - [facility] 13.8 % [facility] LABORATORY MPV 10.5 7.6 - 12.9 [facility] LABORATORY nRBC % Auto 0.0 % [facility] LABORATORY nRBC Abs Auto 0.000 0.000 - [facility] 0.000 [facility] x10(3)/[facility] LABORATORY Specimen Anatomical Collection Method Collection Time Receive d Time (Source) Location / / Volume Laterality Blood 05/15/2022 12:00 05/15/2022 PM EDT 12:19 PM EDT Resulting Agency Comment Spec In Lab Lc TRIPP HEMATOLOGY ORDERABLES Performing Organization Address City/State/[place] [address] (ABNORMAL) Basic Metabolic Panel (non-fasting) (05/15/2022 12:00 PM EDT) P athologist Signature Glucose Lvl 203 (H) 65 - 199 [facility] mg/dL [facility] LABORATORY Comment: Diabetes: >=200 mg/dL plus symp toms BUN 16 10 - 20 mg/dL [facility] LABORATORY Creatinine 0.84 0.80 - 1.50 mg/dL [facility] LABORATORY Sodium 141 135 - [...] Organization Address City/State/[place] [address] documented in this encounter [...] [facility] Unhold - Provider: Admin Adt)2131 [...] RN) 1600 (New Bag - Provider: Barbie Joyec RN)175 (MAR Hold - Provider: Admin Adt [...] chewable tablet (CANCELED) 174 (Given - Provider: lFavia Schuler RN) ONCE PRN, Starting on Fri05/20/22 [...] (porcine) (1,000 units/mL) injection 0-8,000 Units 175 ([facility] Hold - Provider: [...] Pr ovider: Emily Sauceda RN) 1750 ([facility] Hold - Provider: Admin Adt - R lexie: Transfer to a Procedural area)1955 ([facility] [...] (Roxicodone) tablet 10-15 mg(Linked Group 2) 1750 ([facility] Hold - [...]
Routine documented in this encounter Care Teams Helper/Driver Relationship Specialty Start Date End Date Bobby Das MD PCP - General 10/02/[address] [place] [address] [place] [phone] documented as of this encounter
--- OUTSIDE RECORDS SUMMARY | 2022-07-24 09:20 | XMS_ITS | Encounter Summary ---
:1940 [place] [address] Care Team Providers Name Role Phone Bobby Das MD Primary Care Provider Reason for Referral Diagnostic Test (Routine) - Closed Specialty Diagnoses / Procedures Referred By Contact Refer red To Contact Cardiology Diagnoses Paroxysmal atrial fibrillation Nasrin Parra PA [facility] Non-Inv Card Lab Procedures Ziopatch 48 Hrs-15 Days [facility] VASCULAR SURGERY [place], [place] [id number] [place] [phone] Fax: Referral ID Status Reason Start Date Expiration Date Visits V isits Requested Authorized [id number] Closed Specialty 05/21/2022 10/21/2022 1 1 Service Requested Reason for Visit Auth/Cert Specialty Diagnoses / Procedures Referred By Contact Refer red To Contact Diagnoses Limb ischemia LLE thrombus Fito Summers MD [facility] [place] [address] Referral ID Status Reason Start Date Expiration Date Visits Requ ested Visits Authorized [id number] 1 1 Encounter Details Date Type Department Care Team Description 05/21/2022 Hospital Encounter Non-Invasive Paroxysma l atrial [place] [address] Social History Tobacco Use Types Packs/Day [...] 04/12/20 21 (FLONASE) 50 mcg/actuation Nare route [place], Suspension daily as needed. fluorouraciL (EFUDEX) 5 [...] [facility] DR GASTROENTEROLOGY DEPT [place], [place] [address] (Wo rk) 09/05/2022 Appointment Cardiology Trinity Reid MD [facility] CARDIOLOGY [place], [place] [address] (Wo rk) 09/05/2022 Office Visit Cardiology Trinity Reid MD [facility] CARDIOLOGY [place], [place] 0[address] (Wo rk) documented as of [...] fibrillation documented in this encounter Care Teams Frame Table Operator Relationship Specialty Start Date End Date Bobby Das MD PCP - General 10/02/[address] [place] [address] [place] [phone] documented as of this encounter
--- OUTSIDE RECORDS SUMMARY | 2022-07-24 09:20 | XMS_ITS | Encounter Summary ---
:1940 [place] [address] Care Team Providers Name Role Phone Bobby Das MD Primary Care Provider Reason for Visit Auth/Cert Specialty Diagnoses / Procedures Referred By Contact Refer red To Contact Diagnoses Limb ischemia LLE thrombus Fito Summers MD [facility] [place] [address] Referral ID Status Reason Start Date Expiration Date Visits Requ ested Visits Authorized [id number] 1 1 Encounter Details Date Type Department Care Team Description 05/15/2022 Anesthesia Event Main Operating Room Cari Briggs MD [facility] [place] [address] [facility] Duong Aguillon CRNA [place] [address] [place] [address] Anesthesia Record Procedure Summary Procedure Name [...] Amb ros, Andrea L, DION fossa), left; [id number]-wnt-[id number] catheter system; 18 gauge; OSH; site care per policy/procedure, site symptomatic, removed per policy/procedure, catheter/device intact; 05/16/22; 1117 PIV 05/15/22; 1204; median 05/15/22 1204 by 05/16/22 0738 by cubital vein (antecubital Marcia Dimas RN Gon zalez, Adriana, fossa), right; RN tzzw-alf-rspgug catheter system; 18 gauge; OSH; 05/16/22; 0738 [...] Procedure Summary Date: 05/15/22 Room / Location: [facility] OR [address] [place] [address] MAIN OR Anesthesia Start: 1320 Anesthesia Stop: 1633 Procedure: EMBOLECTOMY OR THROMBECTOMY, FEMOROPOPLITEAL, AORTOILIAC ARTERY BY LEG INCISION [facility] (Left ) Diagnosis: (Acute Limb Ischemia) Surgeons: Fito Summers MD Responsible Provider: Cari Ventura MD Anesthesia Type: general ASA Status: 3 - Emergent All Anesthesia Providers: Anesthesiologist: Cari Ventura MD STRATEGIC DEVELOPMENT MANAGER: Torres Aguilar CRNA Vitals Value Taken Time BP 108/69 05/15/22 1715 Temp 36.3 ??C (97.3 ??F) 05/15/22 1633 Pulse 110 05/15/22 1719 Resp 16 05/15/22 1719 SpO2 89 % 05/15/22 1719 Pain Level Vitals shown include unvalidated device data. Patient Location: PACU/[facility] Level of Consciousness: Awake and Alert [...] IR Biopsy Spine 07/20/2019 Bobby Marshall MD [facility] INTERVENTIONL RAD ??? IR VERTEBROPLASTY LUMBAR MULTIPLE LEVELS 07/20/2019 IR Vertebroplasty Lumbar Multiple Levels 07/20/2019 Bobby Marshall MD [facility] INTERVENTIONL RAD ??? IR VERTEBROPLASTY THORACIC SINGLE LEVEL 10/25/2020 IR Vertebroplasty Thoracic Single Level 10/25/2020 Matt Chisholm MD 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 Plan discussed with STRATEGIC DEVELOPMENT MANAGER. Anesthesia Screening documented in this encounter Plan of Treatment Upcoming Encounters Date Type Specialty Care Team Description 08/08/2022 Office Visit Gastroenterology Negra Collins MD [facility] GASTROENTEROLOGY DEPT [place], [place] [address] (Wo rk) 09/05/2022 Appointment Cardiology Trinity Reid MD [facility] CARDIOLOGY [place], [place] [address] (Wo rk) 09/05/2022 Office Visit Cardiology Trinity Reid MD [facility] CARDIOLOGY [place], [place] 0[address] (Wo rk) documented as of [...] Routine documented in this encounter Care Teams Help Aid Relationship Specialty Start Date End Date Bobby Das MD PCP - General 10/02/[address] [place] [address] [place] [phone] documented as of this encounter
--- OUTSIDE RECORDS SUMMARY | 2022-07-24 09:20 | XMS_ITS | Encounter Summary ---
:1940 Author Organization [facility] [place] [address] Care Team Providers Name Role Phone Bobby Das MD Primary Care Provider Reason for Referral Consultation (Routine) - Authorized Specialty Diagnoses / Procedures Referred By Contact Refer red To Contact Diagnoses Non-ST elevation myocardial infarction (NSTEMI) Limb ischemia Nasrin Parra PA [facility] [place] [address] [place] [address] Referral ID Status Reason Start Date Expiration Visits Visits Date Requested Authorized [id number] Authorized Consult, 05/21/2022 05/21/2023 1 1 Test & Treat iagnostic Test (Routine) - Closed Specialty Diagnoses / Procedures Referred By Contact Refer red To Contact Cardiology Diagnoses Paroxysmal atrial fibrillation Nasrin Parra PA [facility] Non-Inv Card Lab Procedures Ziopatch 48 Hrs-15 Days [facility] [place] [address] [place] [address] Fax: Referral ID Status Reason Start Date Expiration Date Visits V isits Requested Authorized [id number] Closed Specialty 05/21/2022 10/21/2022 1 1 Service Requested Consultation (Routine) - Closed Specialty Diagnoses / Procedures Referred By Contact Refer red To Contact Cardiology Diagnoses HFrEF (heart failure with reduced ejection fraction) Paroxysmal atrial fibrillation Post-hospital follow-up, s/p PCI with stenting, heart failure Nasrin Parra PA [facility] 4a [facility] [place] [address] [place] [address] Referral ID Status Reason Start Date Expiration Date Visits V isits Requested Authorized [id number] Closed Consult, 05/21/2022 05/21/2023 1 1 Test & Treat iagnostic Test (Routine) - Authorized Specialty Diagnoses / Procedures Referred By Contact Refer red To Contact Diagnoses Limb ischemia Nasrin Parra PA [facility] Vascular Lab 3v Procedures JOSSELYN, legs, multiple levels [facility] [place] [address] [place] [address] Referral ID Status Reason Start Expiration Visits Visits Date Date Requested Authorized [id number] Authorized Specialty 05/21/2022 05/21/2023 1 1 Service Requested [facility] (Routine) - Authorized Specialty Diagnoses / Procedures Referred By Contact Refer red To Contact Diagnoses Limb ischemia Fito Summers MD [facility] [address] [place] [address] [address] Fax: Referral ID Status Reason Start Date Expiration Visits Visits Date Requested Authorized [id number] Authorized Consult, 05/21/2022 11/17/2022 999 999 Test & Treat Reason for Visit Reason Comments Left Leg Pain Auth/Cert Specialty Diagnoses / Procedures Referred By Contact Refer red To Contact Diagnoses Limb ischemia LLE thrombus Fito Summesr MD [facility] [place] [address] Referral ID Status Reason Start Date Expiration Date Visits Requ ested Visits Authorized [id number] 1 1 Encounter Details Date Type Department Care Team Description 05/15/2022 - Hospital Intermediate Cardiac Ravi Summers MD [facility] [place] [address] Atrial fibrillation, unspecified type; 05/21/2022 Encounter Care Unit Wellington Gerard MD [facility] [place] [address] Non-ST elevation myocardial infarction ( NSTEMI); [facility] Limb isch emia; [facility] HFrEF (heart failure with re duced ejection fraction); [facility] Paroxysma [place] [address] Social History Tobacco Use Types Packs/Day Years [...] onset Afib who presents in transfer from [facility] with acute limb ischemia [...] emergently went to the OR for L LOW HEEL BUILDER transverse arteriotomy and primary repair, thromboembolectomy of L SFA/PFA/LOW HEEL BUILDER, reperfusion venous drainage for 250 cc, and [...] Discharge Condition: Good Discharge to: Home with [address] [address] Future Appointments and Orders Future Appointments and Orders Future Appointments Provider Department Dept Phone 05/23/2022 10:30 AM Loretta Cohen MD Dermatology at [facility] Arrive at: [employer] [address] [place] [address] 06/07/2022 1:30 PM Gail Rae APRN Vascular Surgery at [facility] Arrive at: [employer] Area [phone] 06/13/2022 7:30 AM Edson Lagos [place] Vascular Lab at [facility] Arrive at: [employer] Manager Area [phone] 06/13/2022 8:00 AM Fito Summers MD Vascular Surgery at [facility] Arrive at: [employer] Manager Area [phone] 06/13/2022 10:00 AM Alan Reid MD Cardiology at [facility] Arrive at: [employer] Manager Area [phone] Future Orders Complete By Expires Demetriusopatch 48 Hrs-15 Days [[id number] CPT(R)] 05/21/2022 11/20/2022 Process Instructions: Scheduling Instructions: Comments: Questions: Does the patient have a pacemaker? If yes provide HI/LO settings: Apply for 7 or 14 days?: 7 Where will study be performed?: [facility] Clin[facility] JOSSELYN, legs, multiple levels [VAS8 Custom] 06/21/2022 (Approximate) 12/21/2022 Process Instructions: There is no in-house vascular labeling associate available on weeknights (5pm-8am), weekends, or holidays. IF THIS IS A REQUEST FOR AN EMERGENT STUDY DURING THOSE HOURS, please have the senior provider responsible for the patient page the Vascular Surgery Fellow/Senior Resident production internship to discuss options. Scheduling Instructions: Questions: Indication for study/signs & symptoms: ALI s/p L fem cutdown with thromboembolectomy Question to be answered: Perfusion to feet? Please check toe pressure Preferred location?: [facility] Referral to Cardiology [REF12 [...] Home Health. [address] [facility] [address] (home) Date of : 1940 Inpatient DOCUMENTATION FOR VNA SERVICES (INCLUDING THOSE PATIENTS WITH MEDICARE COVERAGE REQUIRING HOME VNA SERVICES AND/OR HOSPICE SERVICES) PATIENT'S LOCATION: Koko Zamora [address] [facility] [phone] (home) Cell: No relevant phone numbers on file. Rebeamer's Name: Koko In discussion with the attending physician, it is certified that this patient is under their care and that they, or a Nurse Practitioner,Clinical Nurse specialist or Physician Behavioral Health Worker who is working directly with them, [...] for managing ADL's. HOME HEALTH CARE AGENCY: [facility] [address] [place] [address] Start of care: Within 24 to 48 [...] from this patient'sPCP: Bobby Das MD [address] [place] [phone] All A agencies which cover the [...] For any problems or questions please call [phone] For issues on weeknights after 5pm and weekends please call [phone] and ask for the Vascular Fellow production internship. JOSEE Santiago Vascular Surgery 05/21/2022 documented in [...] For any problems or questions please call [phone] For issues on weeknights after 5pm and weekends please call [phone] and ask for the Vascular Fellow production internship. documented in this encounter Medications at Time [...] 04/12/20 21 (FLONASE) 50 mcg/actuation Nare route Tyler, Suspension daily as needed. fluorouraciL (EFUDEX) 5 [...] onset Afib who presents in transfer from [facility] with acute limb ischemia [...] status, full code. JOSEE Santiago 05/21/2022 Pager: [phone] Brannon Isaacs, PT - 05/21/2022 10:35 AM [...] plan as stated. Time IN / OUT: 4392-7519 Total Minutes, Physical Therapy: 25 Billing Code: 2 B[place]ON Isaacs DPT Pager: [phone] Physical Therapy Inpatient Rehabilitation Department Wellington Jean [...] 04/17/2021 in Pain and Spine Center at [facility] Weight 79.8 kg (175 lb [...] and plan of care per Dr. Mcnamara (mold technician). 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 His [...] 04/17/2021 in Pain and Spine Center at [facility] Weight 79.8 kg (175 lb [...] findings andplan of care per Dr. Mcnamara (mold technician). Please refer to her note above for [...] a mitral repair in 2000 (not at [facility]) with no CAD at that [...] AF and the first documented HR at [facility] was 125 bpm (presented to [...] onset Afib who presents in transfer from [facility] with acute limb ischemia [...] management following Dottie Hill APRN 05/20/2022 Pager: [phone] Laney Atkins RN - 05/20/2022 1:14 AM [...] 05/20/2022 1:09 AM EDT Pt. Transferred to [facility]. RN accompanied patient to floor and handed off to [facility] RN Dottie Hill APRN - 05/19/2022 10:02 AM EDT Vascular Surgery Progress Note Koko Zamora is a 81 y.o. male with w new onset Afib who presents in transfer from [facility] with acute limb ischemia of the LLE. ?? The patient had sudden pain starting at 630 05/15/22, he presented [facility] where he was placed on heparin. [...] management following Dottie Hill APRN 05/19/2022 Pager: [phone] Emily Greer RN - 05/19/2022 6:28 AM EDT OUTCOME EVALUATION NOTE: OUTCOME SUMMARY: Patient AOx4, VSS on RA. Afib on tele. HR controlled w/ PRN metop, given x2. Denies CP, SOB, n/v. See flowsheets for NVC. Dressings to LLE CDI, prevena WV to groin intact. Voiding to urinal. LBM CLEANER GREASER, patient stating he will maybe try the [...] adequately without difficulty to bedside urinal. LBM CLEANER GREASER. Up to chair this AM with nursing staff. Worked with PT, tolerated well. Diet changed to regular at 1800.Plan is for cardiac cath on Friday. PLAN MOVING FORWARD: Bleeding precautions Pain management neurovascular checks PT/OT slab inspector INDIVIDUALIZED FALL PREVENTION INTERVENTIONS: Patient-specific fall [...] onset Afib who presents in transfer from [facility] with acute limb ischemia [...] mL Intravenous BID ??? PHENobarbitaL 0.12 mg/kg/dose (Madison) Oral BID ??? thiamine 100 mg Oral [...] management following Dottie Hill APRN 05/18/2022 Pager: [phone] Brannon Isaacs, PT - 05/18/2022 10:00 AM EDT Physical Therapy Evaluation Patient profile: Koko Zamora is a 81 y.o. male admitted on 05/15/[address] iFto Summers MD. Per MD notes, pt is [...] IR Biopsy Spine 07/20/2019 Bobby Marshall MD [facility] INTERVENTION[facility] RAD ??? IR VERTEBROPLASTY LUMBAR MULTIPLE LEVELS 07/20/2019 IR Vertebroplasty Lumbar Multiple Levels 07/20/2019 Bobby Marshall MD [facility] INTER[facility] RAD ??? IR VERTEBROPLASTY THORACIC SINGLE LEVEL 10/25/2020 IR Vertebroplasty Thoracic Single Level 10/25/2020 Matt Chisholm MD [facility] INTER[facility] RAD ??? PRO EMBLC/THRMBC FEMORAL POPLITEAL AORTO-ILIAC ARTERY Left 05/15/2022 EMBOLECTOMY OR THROMBECTOMY, FEMOROPOPLITEAL, AORTOILIAC ARTERY BY LEG INCISION (WRVU 19.48) performed by Fito Summers MD at [facility] MAIN OR Social History: Pt lives [...] in this evaluation. Time IN / OUT: 6237-3733 Total Minutes, Physical Therapy: 30 Billing Code: Basilio Isaacs, PT Pager: [phone] Physical Therapy Inpatient Rehabilitation Department Emily Sauceda RN - 05/18/2022 4:34 AM EDT OUTCOME EVALUATION NOTE: OUTCOME SUMMARY: Patient AOx4, VSS on 2LNC. Afib on tele. HR above 120, MD aware, PRN IV metop given x1, HR returned to 90's-low 100's. Denies CP, SOB, n/v. See flowsheets for NVC. Dressings to LLE CDI, prevena WV to groin intact. Voiding to urinal. LBM CLEANER GREASER. Heparin gtt therapeutic. Pain controlled. Patient sleeping [...] adequately without difficulty to bedside urinal. LBM CLEANER GREASER. Patient not OOB this shift. Currently NPO awaitingprocedure in lab asst. PLAN MOVING FORWARD: Bleeding precautions Pain management neurovascular checks PT/OT NPO for lab asst INDIVIDUALIZED FALL PREVENTION INTERVENTIONS: Patient-specific fall risk [...] the Emergency Department as a transfer from [facility] with left lower extremity limb ischemia. He went to [facility] and was startedon heparin and transferred to [facility] for evaluation by vascular [...] will will be going to the lab asst for evaluation. Will defer PT eval at present but will see as ordered post cardiac catheritizaton. Social Hx:Pt lives with his Ursula in [place], [place] in a 2 level home in [...] WBAT LLE LISBET HERMAN PT Pager # [phone] In-Pt Rehab Medicine Dottie Hill APRN - 05/17/2022 7:42 AM EDT Vascular Surgery Progress Note Koko Zamora is a 81 y.o. male with w new onset Afib who presents in transfer from [facility] with acute limb ischemia [...] mL Intravenous BID ??? PHENobarbitaL 0.24 mg/kg/dose (Madison) Oral BID Followed by ??? [START ON 05/18/2022] PHENobarbitaL 0.12 mg/kg/dose (Madison) Oral BID ??? thiamine 100 mg Oral [...] management following Dottie Hill APRN 05/17/2022 Pager: [phone] Sary Dos Santos, RN - 05/17/2022 12:16 [...] onset Afib who presents in transfer from [facility] with acute limb ischemia [...] mL Intravenous BID ??? PHENobarbitaL 0.48 mg/kg/dose (Madison) Oral BID Followed by ??? [START ON 05/17/2022] PHENobarbitaL 0.24 mg/kg/dose (Madison) Oral BID Followed by ??? [START ON 05/18/2022] PHENobarbitaL 0.12 mg/kg/dose (Madison) Oral BID ??? thiamine 100 mg Oral [...] management following Edward Rodríguez MD 05/16/2022 Pager: [phone] Sary Dos Santos RN - 05/16/2022 12:52 [...] 2129 Hand off to DION Ramirez 3 [place] documented in this encounter H&P Notes Kerry [...] Sedation plan: moderate/conscious sedation - FULL CODE eKrry Mcnamara MD 05/20/2022 8:30 AM Tim Chicas MD - 05/15/2022 11:33 AM EDT Vascular Surgery History and Physical HPI: Koko Zamora is a 81M w new onset Afib who presents in transfer from [facility] with acute limb ischemia [...] IR Biopsy Spine 07/20/2019 Bobby Marshall MD [facility] RAD ??? IR VERTEBROPLASTY LUMBAR MULTIPLE LEVELS 07/20/2019 IR Vertebroplasty Lumbar Multiple Levels 07/20/2019 Bobby Marshall MD [facility] RAD ??? IR VERTEBROPLASTY THORACIC SINGLE LEVEL 10/25/2020 IR Vertebroplasty Thoracic Single Level 10/25/2020 Matt Chisholm MD [facility] RAD Social Hx: Social History [...] Refill ??? fluticasone propionate (FLONASE) 50 mcg/actuation Tyler, Suspension as needed. ??? fluorouraciL (EFUDEX) 5 [...] and consented. Tim Chicas MD 05/15/2022 Pager: [phone] documented in this encounter ED Notes Lc Harris PA - 05/15/2022 1:20 PM EDT ED Provider Note HPI: Koko Zamora is a 81 y.o. male with history of atrial fibrillation not on anticoagulation, and GI bleeding who presents to the Emergency Department as a transfer from [facility] with left lower extremity limb ischemia. Patient says that the symptoms started roughly 630 this morning when he developed severe pain in his left lower extremity. He went to [facility] and was started on heparin and transferred to [facility] for evaluation by vascular [...] lower extremity earlier today and went to [facility] where it was determined that he had ischemia of the left lower extremity. Vascular surgery [facility] was contacted and he was transferred [...] orders before pt. Arrival. Pt. Arrived at [facility] by EMS at 1150, vascular [...] in an outpatient cardiac rehabilitation program at [facility] was discussed. Patient agrees to a referral to this program. Timing will depend on his recovery from Vascular surgery. He is going home w/VNA PT. I gave him the brochure for the program at [facility] for future reference. Care [...] information for follow-up Home Health & H[facility], [place] [address] [place] [address] Transportation: family or friend will provide Functional [...] *No Product type* / Secondary Insurance: [facility] Prescription Coverage: Yes This plan was formulated with input from patient and team. All are in agreement with plan. IP RS has communicated with [facility] - for initial IMM. RAlmita (Satish) DION López RN/CM - Cellphone: [phone] Pager: [phone] Covering Service RN/CM Plan of Care - [...] catheterization, transferred in hospital bed accompanied by Order Editor RN, remains on telemetry monitoring. Heparin gtt [...] *No Product type* / Secondary Insurance: [facility] Last Physical Therapy Recommendation: home with home health, home with supervision with None Last Occupational Therapy Recommendation: with Plan for discharge is: Home w/ Services Outpatient Agency/Support Group Needs: None Home Health Services: Registered Nurse, Physical Therapy, Occupational Therapy Agency Referrals: I have met with the patient to: ?? discuss discharge planning needs. ?? provide the [facility], Office of Care Management letter from the [employer] pertaining to rehab referrals. ?? provide a letter describing our affiliations within the [facility] and educate about their right to choose where referrals are sent. ?? provide a list of Home Health Agencies / Durable Medical Equipment vendors which serve their preferred geographic area. ?? provided patient with [facility] Star Quality Rating handout. They have requested referrals to: [facility]. [address] [place] [address] Note routed to a Research Executive who will communicate referrals to facilities and provide any required information. Transportation: family or friend will provide Barriers to discharge: None Plan going forward: Patient is going for a cardiac cath today and plan will come from there. Patientwas recently seen by PT and they recommend VNA at time of discharge. [facility] was routed and pendedat this time. Care Management will continue to follow and assist with discharge planning and coordination of care as indicated. Anticipated Date of Discharge: 05/21/2022 Nataly RICHMOND RN Phone: [phone] Pager: [phone] Plan of Care - Laney Atkins RN [...] note were not included. [facility] [place] [address] [address] INPATIENT CARDIOLOGY CONSULT NOTE Date of Consultation: 05/17/2022 Admit Date: 05/15/2022 Hospital Day 2 days Reason for Consult: New afib Active Problems: Active Hospital Problems Diagnosis Limb ischemia Resolved Hospital Problems No resolved problems to display. HPI: Koko Zamora is a 81 y.o. male with a PMHx significant for MVP (s/p MV repair 2000), tobacco use, HLD, who presented to [facility] from OSH on 05/15 with acute limb ischemia of LLE and was found to be in atrial fibrillation. Patient had sudden onset LLE pain on 05/15 and presented to [facility], where he was started on heparin and transferred to [facility]. Upon arrival to [facility], patient was in atrial fib [...] IR Biopsy Spine 07/20/2019 Bobby Marshall MD [facility] RAD IR VERTEBROPLASTY LUMBAR MULTIPLE LEVELS 07/20/2019 IR Vertebroplasty Lumbar Multiple Levels 07/20/2019 Bobby Marshall MD [facility] RAD IR VERTEBROPLASTY THORACIC SINGLE LEVEL 10/25/2020 IR Vertebroplasty Thoracic Single Level 10/25/2020 Matt Chisholm MD [facility] RAD PRO EMBLC/THRMBC FEMORAL POPLITEAL AORTO-ILIAC ARTERY Left 05/15/2022 EMBOLECTOMY OR THROMBECTOMY, FEMOROPOPLITEAL, AORTOILIAC ARTERY BY LEG INCISION (WRVU 19.48) performed by Fito Summers MD at [facility] MA[facility] OR Allergies Allergen Reactions Aspirin Other (See Comments) GI bleed Out-Patient Medications: Medications Prior to Admission Medication Sig Dispense Refill Last Dose fluorouraciL (EFUDEX) 5 % Cream daily. CRESTOR 40 mg Tablet Take 40 mg by mouth daily. fluticasone propionate (FLONASE) 50 mcg/actuation Tyler, Suspension as needed. ascorbic acid, vitamin C, [...] 5 mL Intravenous BID PHENobarbitaL 0.24 mg/kg/dose (Madison) Oral BID Followed by [START ON 05/18/2022] PHENobarbitaL 0.12 mg/kg/dose ([place]ison) Oral BID thiamine 100 mg Oral Daily folic acid 1,000 mcg Oral Daily multivitamin with minerals 1 tablet Oral Daily heparin (porcine) infusion 1,200 Units/hr (05/17/22 4356) Family History: No family history on file. [...] ED to Hosp-Admission (Current) from 05/15/[address] [place] [address] Office Visit from 04/17/2021 in Pain and Spine Center at [facility] Weight 79.8 kg (175 lb [...] continue to follow Anne-Marie Larson MD Pager [phone] Clinic: [phone] 05/17/22 6:22 PM Initial Assessments - Ifrah [...] 180 days) Any patient receiving care at [facility] must abide by [place] law. The hierarchy [...] The agent with financial power of deputy prosecuting attorney or a conservator appointed in accordance [...] raised toilet seat Home Address confirmed as: [facility] [facility] [address] Social & Family Supports: All names listed below confirmed with patient as Incorrect. Will notify conifer to correct. Wifes address is same as and phone is [phone]. Extended Emergency Contact Information Primary Emergency Contact: Demarco Zamorana Address: [facility] [place] [address] [facility] Relation: Spouse Current Care Provided by: self [...] *No Product type* / Secondary Insurance: [facility] Prescription Coverage: Yes Preferred Pharmacy: [id number] - [place], [place] - [address] [facility] [address] [facility] [place] [address] [facility] - [place], [place] - [address] [facility] [address] [facility] [address] [place] Status: Patient is a : unable to assess Primary Care Provider: Bobby Das MD [phone] Patient/Caregiver Goals of Treatment: to walk again Potential Needs for Transition of Care: none noted per 05/16 IDR Transportation: family will provide Transportation Anticipated: family or friend will provide Concerns to be Addressed: no discharge needs identified Assessment: Patient is admitted to vascular surg service for left lower extremity limb ischemia Plan: Per PT OT recommendations . Has used Socrative in the past. A member of the Care Management team will continue to monitor progress, follow for continuity of care and assist with transition of care planning. Ifrah Bell RN [employer] Electrician SupervisorStock Letterer of Care Management Pager [phone] Brief Op Note - Erin Garza MD - 05/15/2022 5:04 PM EDT Brief Operative Note Patient Name: oKko Zamora : [id number] MR#: [id number] Case Date: 05/15/2022 Surgeon: Surgeon(s) and Role: [...] Garza MD - 05/15/2022 2:08 PM EDT [facility] Operative Note Patient Name: Koko Zamora : [id number] MR#: [id number] Case Date: 05/15/2022 Surgeon: Surgeon(s) and Role: [...] MD [facility] GASTROENTEROLOGY DEPT [place], [place] [address] (Wo rk) 09/05/2022 Appointment Cardiology Trinity Reid MD [facility] CARDIOLOGY [place], [place] 0375 (Wo rk) 09/05/2022 Office Visit Cardiology Trinity Reid MD [facility] CARDIOLOGY [place], [place] 0375 (Wo rk) Scheduled Referrals Name [...] Ref Test Analysis Performed At [facility] Range Method Time Signature VB Text Department: Vascular Surgery Lab VASCUBASE Report Patient: [id number] (KOKO ZAMORA) CPT: 82458 Referring Physician: FITO SUMMERS ?? Phone: Indications: s/p L LOW HEEL BUILDER endart. Diabetes mellitus: no Findings: Right ?Pressure [...] Organization Address City/State/[place] [address] Differential, Automated (05/21/2022 6:15 AM EDT) athologist Signature Neutrophils % 58.8 % [facility] LABORATORY Neutr Abs (ANC) 3.97 1.70 - [facility] 6.10 [facility] x10(3)[facility] LABORATORY Lymphocytes % 25.2 % [facility] LABORATORY Lymphocytes Abs 1.7 0.9 - 3.2 [facility] x10(3)/[facility] LABORATORY Monocytes % 12.9 % [facility] LABORATORY Monocyte Abs 0.9 0.3 - 0.9 [facility] x10(3)[facility] LABORATORY Eosinophils % 2.1 % [facility] LABORATORY Eosinophils Abs 0.1 0.0 - 0.4 [facility] x10(3)/[facility] LABORATORY Basophils % 0.4 % [facility] LABORATORY Basophils Abs 0.0 0.0 - 0.1 [facility] x10(3)/[facility] LABORATORY Immature Gran % 0.60 [...] 0.04 x10(3)/[facility] LABORATORY Specimen Anatomical Collection Method Collection Time Receive d Time (Source) Location / / Volume Laterality Blood 05/21/2022 6:15 AM 2 6:38 EDT AM EDT Resulting Agency Comment Spec In Lab Edward Rodríguez MD HEMATOLOGY ORDERABLES Performing Organization Address City/State/[place] [address] (ABNORMAL) Hemogram (05/21/2022 6:15 AM EDT) [facility] gist Method Time Signature WBC 6.8 4.0 - 9.5 [facility] LABORATORY RBC 3.59 (L) 4.58 - [facility] 5.54 [facility] x10(6)/[facility] LABORATORY Hemoglobin 11.8 (L) 13.7 - [facility] 16.5 g/dL [facility] LABORATORY Hematocrit 34.5 (L) 40.5 - [facility] 48.5 % [facility] LABORATORY MCV 96.1 (H) 82.9 - [facility] XIAO 93.1 [facility] LABORATORY MCH 32.9 (H) 27.5 - [facility] 32.1 pg [facility] LABORATORY MCHC 34.2 32.0 - [facility] 35.7 g/dL [facility] LABORATORY Platelets 198 145 - 357 [facility] x10(3)/[facility] LABORATORY RDWSD 44.9 36.0 - [facility] 45.0 [facility] LABORATORY RDWCV 12.6 11.4 - [facility] XIAO 13.8 % [facility] LABORATORY MPV 10.0 7.6 - 12.9 [facility] nRBC % Auto 0.3 % [facility] LABORATORY nRBC Abs Auto 0.020 (H) 0.000 - [facility] 0.000 [facility] x10(3)/[facility] LABORATORY Specimen Anatomical Collection Method Collection Time Receive d Time (Source) Location / / Volume Laterality Blood 05/21/2022 6:15 AM 2 6:38 EDT AM EDT Resulting Agency Comment Spec In Lab Edward Rodríguez MD HEMATOLOGY ORDERABLES Performing Organization Address City/State/[place] [address] EKG 12 Lead (05/20/2022 7:04 PM EDT) Component Value Ref Range Test Analysis Performed Pathologis t Method Time At Signature Ventricular rate 101 BPM MUSE SYSTEM QRS Duration 116 ms MUSE SYSTEM Q-T Interval 378 ms MUSE SYSTEM QTC Calculated 490 ms MUSE SYSTEM (Bezet) Calculated R Dania -53 degrees MUSE SYSTEM Calculated T Dania 101 degrees MUSE SYSTEM INTERPRETATION Atrial fibrillation [...] Laterality Volume Narrative 05/20/2022 7:09 PM EDT ?[facility] ? Cardiac Cathete rization/Intervention Report ? Patient Name: Koko Zamora ? Procedure Date: 05/20/2022 ? A #: [id number] ? Primary Physician: Abundio Servin ? Case #: [id number] ? File Name: [id number] ? Catheterization Order Number: [id number] ? [facility] ? Final Report [place], [place] ? Patient Name: ? Koko J. Klarissa uson ? ID#: ?[id number] ? : ?1940 ? Procedure Date: ? [...] was Urgent. The indication for ?the lab asst visit is cardiomyo nita. Chest pain symptom [...] ?3.5 guiding catheter and a 3.5 Fr [facility] [address] ??20 Mhz. ??Imaging ?was successful. ??Image [...] A premounted 2. 75 x 30 mm [place] (AMPARO) was deployed ? with a maximum [...] stenosis ? following this intervention. The final LAE flow was 3. ? Vascular Access: ?Vascular [...] require ?modification of this regimen. C onsult [facility] [place] for ?questions. ?The [...] note might be different from the original. [facility] Cardiac Catheterization/Intervention Re port Patient Name: Koko Zamora Procedure Date: 05/20/2022 A #: [id number] Primary Physician: Abundio Servin Case #: File Name: [id number] Catheterization Order Number: [id number] [facility] Final Report [place], [place] Patient Name: Koko Zamora ID#: [id number] : 1940 Procedure Date: May 20, 2022 [...] designated a s ASA Class IV. The [facility] clinical frailty scale is 3: Managing [...] e was Urgent. The indication for the lab asst visit is cardiomyopathy. C hest pain symptom [...] guiding catheter and a 3.5 Fr [facility] [address] 20 Mhz. Imaging was successful. Image [...] atmospheres. A premounted 2.75 x 30 mm [place] (AMPARO) was deployed with a maximum inflation [...] These recommendations are made at the t mihcael of the intervention. Patient and provider preferences or a changing clinical situation may require modification of this regimen. Consult [facility] [place]ventional [place]iology for questions. The 1 year [...] - 199 [facility] mg/dL [facility] LABORATORY Comment: Supplemental ranges: <140 mg/dL before meals <180 mg/dL all other times of the day Specimen Anatomical Collection Method Collection Time Receive d Time (Source) Location / / Volume Laterality Blood 05/20/2022 5:42 PM 5:42 EDT PM EDT Fito Summers MD POINT OF CARE TEST ORDERABLE S Performing Organization Address City/State/[place] [address] (ABNORMAL) BMP w/fasting Glucose (05/20/2022 10:50 AM EDT) P athologist Signature Glucose 152 (H) 65 - 99 [facility] Fasting mg/dL [facility] LABORATORY Comment: ?Fasting* Glucose Interpretive C [...] of Diabetes Mellitus, Position Statement from the [place] [employer]. ??Diabete s Care, Volume 33, Supplement 1, Nov 2009 BUN 11 10 - 20 mg/dL [facility] LABORATORY Creatinine 0.63 (L) 0.80 - 1.50 mg/dL [facility] LABORATORY Sodium 137 135 - 145 mmol/L [facility] LABORATORY Potassium 3.6 3.5 - 5.0 mmol/L [facility] LABORATORY Comment: Please note: ??Patients with [...] 15 mmol/L [facility] LABORATORY Calcium 8.7 8.5 - 10.5 mg/dL [facility] LABORATORY Estimated GFR 97 >=60 mL/min/1.73 [...] Organization Address City/State/[place] [address] Heparin (unfractionated) Level (05/20/2022 5:02 AM EDT) athologist Signature Heparin UFH 0.57 IU/mL [facility] [...] Organization Address City/State/[place] [address] (ABNORMAL) Differential, Automated (05/20/2022 5:02 AM EDT) Patholo gist Method Time Signature Neutrophils % 58.1 % [facility] LABORATORY Neutr Abs (ANC) 4.52 1.70 - [facility] 6.10 [facility] x10(3)/[facility] LABORATORY Lymphocytes % 24.1 % [facility] LABORATORY Lymphocytes Abs 1.9 0.9 - 3.2 [facility] x10(3)/[facility] LABORATORY Monocytes % 13.8 % [facility] LABORATORY Monocyte Abs 1.1 (H) 0.3 - 0.9 [facility] x10(3)/[facility] LABORATORY Eosinophils % 2.6 % [facility] LABORATORY Eosinophils Abs 0.2 0.0 - 0.4 [facility] x10(3)/[facility] LABORATORY Basophils % 0.8 % [facility] LABORATORY Basophils Abs 0.1 0.0 - 0.1 [facility] x10(3)/[facility] LABORATORY Immature Gran % 0.60 [...] Gran Abs 0.05 (H) 0.00 - 0.04 x10(3)/[facility] LABORATORY Specimen Anatomical Collection Method Collection Time Receive d Time (Source) Location / / Volume Laterality Blood 05/20/2022 5:02 AM 5:19 EDT AM EDT Resulting Agency Comment Spec In Lab Edward Rodríguez MD HEMATOLOGY ORDERABLES Performing Organization Address City/State/[place] [address] (ABNORMAL) Hemogram (05/20/2022 5:02 AM EDT) Analysis Performed At Patho logist Time Signature WBC 7.8 4.0 - 9.5 [facility] x10(3)/[facility] LABORATORY RBC 3.53 (L) 4.58 - [facility]IAO 5.54 [facility] x10(6)/[facility] LABORATORY Hemoglobin 11.4 (L) 13.7 - [facility] 16.5 g/dL [facility] LABORATORY Hematocrit 34.3 (L) 40.5 - [facility] XIAO 48.5 % [facility] LABORATORY MCV 97.2 (H) 82.9 - [facility] 93.1 [facility] LABORATORY MCH 32.3 (H) 27.5 - [facility] 32.1 pg [facility] LABORATORY MCHC 33.2 32.0 - [facility] 35.7 g/dL [facility] LABORATORY Platelets 181 145 - 357 [facility] x10(3)/[facility] LABORATORY RDWSD 46.4 (H) 36.0 - [facility] 45.0 [facility] LABORATORY RDWCV 13.0 11.4 - [facility] 13.8 % [facility] LABORATORY MPV 10.4 7.6 - 12.9 [facility] LABORATORY nRBC % Auto 0.0 % [facility] LABORATORY nRBC Abs Auto 0.000 0.000 - [facility] 0.000 [facility] x10(3)/[facility] LABORATORY Specimen Anatomical Collection Method Collection Time Receive d Time (Source) Location / / Volume Laterality Blood 05/20/2022 5:02 AM 2 5:19 EDT AM EDT Resulting Agency Comment Spec In Lab Edward Rodríguez MD HEMATOLOGY ORDERABLES Performing Organization Address City/State/[place] [address] Heparin (unfractionated) Level (05/19/2022 [...] Organization Address City/State/[place] [address] (ABNORMAL) Differential, Automated (05/19/2022 3:26 AM EDT) Patholo gist Method Time Signature Neutrophils % 62.1 % [facility] LABORATORY Neutr Abs (ANC) 4.59 1.70 - [facility] 6.10 [facility] x10(3)/[facility] LABORATORY Lymphocytes % 22.1 % [facility] LABORATORY Lymphocytes Abs 1.6 0.9 - 3.2 [facility] x10(3)/[facility] LABORATORY Monocytes % 13.5 % [facility] LABORATORY Monocyte Abs 1.0 (H) 0.3 - 0.9 [facility] x10(3)/[facility] LABORATORY Eosinophils % 1.3 % [facility] LABORATORY Eosinophils Abs 0.1 0.0 - 0.4 [facility] x10(3)/[facility] LABORATORY Basophils % 0.5 % [facility] LABORATORY Basophils Abs 0.0 0.0 - 0.1 [facility] x10(3)/[facility] LABORATORY Immature Gran % 0.50 % [...] 0.04 x10(3)/[facility] LABORATORY Specimen Anatomical Collection Method Collection Time Receive d Time (Source) Location / / Volume Laterality Blood 05/19/2022 3:26 AM 2 3:59 EDT AM EDT Resulting Agency Comment Spec In Lab Edward Rodríguez MD HEMATOLOGY ORDERABLES Performing Organization Address City/State/[place] [address] (ABNORMAL) Hemogram (05/19/2022 3:26 AM EDT) Analysis Performed At Patho logist Time Signature WBC 7.4 4.0 - 9.5 [facility] x10(3)/[facility] LABORATORY RBC 3.74 (L) 4.58 - [facility] 5.54 [facility] x10(6)/[facility] LABORATORY Hemoglobin 12.1 (L) 13.7 - [facility] 16.5 g/dL [facility] LABORATORY Hematocrit 36.4 (L) 40.5 - [facility] [place] 48.5 % [facility] LABORATORY MCV 97.3 (H) 82.9 - [facility] 93.1 [facility] LABORATORY MCH 32.4 (H) 27.5 - [facility] [place] 32.1 pg [facility] LABORATORY MCHC 33.2 32.0 - [facility] [place] 35.7 g/dL [facility] LABORATORY Platelets 168 145 - 357 [facility] x10(3)/[facility] LABORATORY RDWSD 46.9 (H) 36.0 - [facility] 45.0 [facility] LABORATORY RDWCV 13.0 11.4 - [facility] 13.8 % [facility] LABORATORY MPV 10.5 7.6 - 12.9 [facility] LABORATORY nRBC % Auto 0.0 % [facility] LABORATORY nRBC Abs Auto 0.000 0.000 - [facility] 0.000 [facility] x10(3)/[facility] LABORATORY Specimen Anatomical Collection Method Collection Time Receive d Time (Source) Location / / Volume Laterality Blood 05/19/2022 3:26 AM 2 3:59 EDT AM EDT Resulting Agency Comment Spec In Lab Edward Rodríguez MD HEMATOLOGY ORDERABLES Performing Organization Address City/State/[place] [address] TSH (05/18/2022 8:00 PM EDT) P athologist Signature TSH 2.27 0.27 - 4.20 [facility] [place] mcIU/mL [facility] LABORATORY Comment: Reference Interval (mcIU/mL): Females: ??First Trimester: 0.23-3.88 ??Second Trimester: 0.22-3.90 ??Third Trimester: 0.44-4.66 Specimen Anatomical Collection Method Collection Time Receive d Time (Source) Location / / Volume Laterality Blood 05/18/2022 8:00 PM 2 8:06 EDT PM EDT Resulting Agency Comment Spec In Lab Fito Summers MD CHEMISTRY ORDERABLES Performing Organization Address City/State/ZIP Code Phon e Number [address] (ABNORMAL) Differential, Automated (05/18/2022 3:34 AM EDT) [facility] Method Time Signature Neutrophils % 67.2 % [facility] LABORATORY Neutr Abs (ANC) 5.89 1.70 - [facility] 6.10 [facility] x10(3)/[facility] LABORATORY Lymphocytes % 17.1 % [facility] LABORATORY Lymphocytes Abs 1.5 0.9 - 3.2 [facility] x10(3)/[facility] LABORATORY Monocytes % 13.6 % [facility] LABORATORY Monocyte Abs 1.2 (H) 0.3 - 0.9 [facility] x10(3)/[facility] LABORATORY Eosinophils % 1.0 % [facility] LABORATORY Eosinophils Abs 0.1 0.0 - 0.4 [facility] x10(3)/[facility] LABORATORY Basophils % 0.6 % [facility] LABORATORY Basophils Abs 0.0 0.0 - 0.1 [facility] x10(3)/[facility] LABORATORY Immature Gran % 0.50 % [...] 0.04 x10(3)/[facility] LABORATORY Specimen Anatomical Collection Method Collection Time Receive d Time (Source) Location / / Volume Laterality Blood 05/18/2022 3:34 AM 3:48 EDT AM EDT Resulting Agency Comment Spec In Lab Edward Rodríguez MD HEMATOLOGY ORDERABLES Performing Organization Address City/[facility]/ZIP Code Phon e Number [address] (ABNORMAL) Hemogram (05/18/2022 3:34 AM EDT) Analysis Performed At Patho logist Time Signature WBC 8.8 4.0 - 9.5 [facility] x10(3)/[facility] LABORATORY RBC 3.45 (L) 4.58 - [facility] 5.54 [facility] x10(6)/[facility] LABORATORY Hemoglobin 11.2 (L) 13.7 - [facility] 16.5 g/dL [facility] LABORATORY Hematocrit 33.0 (L) 40.5 - [facility] 48.5 % [facility] LABORATORY MCV 95.7 (H) 82.9 - [facility] 93.1 [facility] LABORATORY MCH 32.5 (H) 27.5 - [facility] 32.1 pg [facility] LABORATORY MCHC 33.9 32.0 - [facility] 35.7 g/dL [facility] LABORATORY Platelets 130 (L) 145 - 357 [facility] x10(3)/[facility] LABORATORY RDWSD 46.2 (H) 36.0 - [facility] 45.0 [facility] LABORATORY RDWCV 13.2 11.4 - [facility] 13.8 % [facility] LABORATORY MPV 10.8 7.6 - 12.9 [facility] LABORATORY nRBC % Auto 0.0 % [facility] LABORATORY nRBC Abs Auto 0.000 0.000 - [facility] 0.000 [facility] x10(3)/[facility] LABORATORY Specimen Anatomical Collection Method Collection Time Receive d Time (Source) Location / / Volume Laterality Blood 05/18/2022 3:34 AM 3:48 EDT AM EDT Resulting Agency Comment Spec In Lab Edward Rodríguez MD HEMATOLOGY ORDERABLES Performing Organization Address City/State/Z[place] [address] Heparin (unfractionated) Level (05/18/2022 [...] Summers MD HEMATOLOGY ORDERABLES Performing Organization Address City/[facility]/[place] [address] Magnesium (05/17/2022 3:33 AM EDT) athologist Signature Magnesium 0.76 0.69 - 1.07 [facility] mmol/L [facility] LABORATORY Specimen Anatomical Collection Method Collection Time Receive d Time (Source) Location / / Volume Laterality Blood Venous Draw / 05/17/2022 3:33 AM 05/17/20 4:05 Unknown EDT AM EDT Resulting Agency Comment Spec In Lab Dottie Hill APRN CHEMISTRY ORDERABLES Performing Organization Address City/[facility]/[place] [address] (ABNORMAL) Basic Metabolic Panel (non-fasting) (05/17/2022 3:33 AM EDT) athologist Signature Glucose Lvl 158 65 - 199 [facility] mg/dL [facility] LABORATORY Comment: Diabetes: >=200 mg/dL plus symp toms BUN 12 10 - 20 mg/dL [facility] LABORATORY Creatinine 0.74 (L) 0.80 - 1.50 mg/dL [facility] LABORATORY Sodium 137 135 - 145 mmol/L [facility] LABORATORY Potassium 3.5 3.5 - 5.0 mmol/L [facility] LABORATORY Comment: Please note: ??Patients with [...] 15 mmol/L [facility] LABORATORY Calcium 8.4 (L) 8.5 - 10.5 mg/dL [facility] LABORATORY Estimated GFR 92 >=60 mL/min/1.73 [...] Organization Address City/State/[place] [address] (ABNORMAL) Differential, Automated (05/17/2022 3:33 AM EDT) [facility] gist Method Time Signature Neutrophils % 65.5 % [facility] LABORATORY Neutr Abs (ANC) 6.84 (H) 1.70 - [facility] 6.10 [facility] x10(3)/[facility] LABORATORY Lymphocytes % 19.7 % [facility] LABORATORY Lymphocytes Abs 2.1 0.9 - 3.2 [facility] x10(3)/[facility] LABORATORY Monocytes % 13.1 % [facility] LABORATORY Monocyte Abs 1.4 (H) 0.3 - 0.9 [facility] x10(3)/[facility] LABORATORY Eosinophils % 0.6 % [facility] LABORATORY Eosinophils Abs 0.1 0.0 - 0.4 [facility] x10(3)/[facility] LABORATORY Basophils % 0.6 % [facility] LABORATORY Basophils Abs 0.1 0.0 - 0.1 [facility] x10(3)/[facility] LABORATORY Immature Gran % 0.50 % [...] Gran Abs 0.05 (H) 0.00 - 0.04 x10(3)/[facility] LABORATORY Specimen Anatomical Collection Method Collection Time Receive d Time (Source) Location / / Volume Laterality Blood 05/17/2022 3:33 AM 3:53 EDT AM EDT Resulting Agency Comment Spec In Lab Edward Rodríguez MD HEMATOLOGY ORDERABLES Performing Organization Address City/State/[place] [address] (ABNORMAL) Hemogram (05/17/2022 3:33 AM EDT) Analysis Performed At Patho logist Time Signature WBC 10.4 (H) 4.0 - 9.5 [facility] x10(3)/[facility] LABORATORY RBC 3.72 (L) 4.58 - [facility] 5.54 [facility] x10(6)/[facility] LABORATORY Hemoglobin 12.0 (L) 13.7 - [facility] 16.5 g/dL [facility] LABORATORY Hematocrit 36.4 (L) 40.5 - [facility] 48.5 % [facility] LABORATORY MCV 97.8 (H) 82.9 - [facility] 93.1 [facility] LABORATORY MCH 32.3 (H) 27.5 - [facility] [place] 32.1 pg [facility] LABORATORY MCHC 33.0 32.0 - [facility] 35.7 g/dL [facility] LABORATORY Platelets 149 145 - 357 [facility] x10(3)/[facility] LABORATORY RDWSD 48.7 (H) 36.0 - [facility] 45.0 [facility] LABORATORY RDWCV 13.5 11.4 - [facility] 13.8 % [facility] LABORATORY MPV 10.6 7.6 - 12.9 [facility] LABORATORY nRBC % Auto 0.0 % [facility] LABORATORY nRBC Abs Auto 0.000 0.000 - [facility] 0.000 [facility] x10(3)/[facility] LABORATORY Specimen Anatomical Collection Method Collection Time Receive d Time (Source) Location / / Volume Laterality Blood 05/17/2022 3:33 AM 3:53 EDT AM EDT Resulting Agency Comment Spec In Lab Edward Rodríguez MD HEMATOLOGY ORDERABLES Performing Organization Address City/[facility]/[place] [address] (ABNORMAL) Urinalysis Microscopic Exam [...] Organization Address City/State/ZIP Code Phon [place] [facility] [place] [address] (ABNORMAL) Urinalysis with reflex Culture (05/16/2022 11:15 PM EDT) Patholo gist Method Time Signature Glucose UA Negative Negative [facility] mg/dL [facility] LABORATORY Protein UA Negative Negative [facility] mg/dL [facility] LABORATORY Bilirubin UA Negative Negative [facility] mg/dL [facility] LABORATORY Comment: Clinical correlation required for positi ve Urine Bilirubin results as false positive may occur with some drugs and d rug related products. If a false positive is suspected a serum total bili quarles should be considered if clinically indicated. Urobilinogen UA Normal Normal mg/dL [facility] LABORATORY pH UA 6.0 5.0 - 8.0 [facility] LABORATORY Blood UA Small (A) Negative mg/dL [facility] LABORATORY Ketones UA Trace (A) Negative mg/dL [facility] LABORATORY Nitrite UA Negative Negative [place] HOSPITAL LAB[facility]ATORY Leukocytes UA Negative Negative [facility] LABORATORY Appearance UA Clear Clear [facility] LABORATORY Spec [place] UA 1.021 1.005 - 1.030 [facility] LABORATORY Color UA Yellow Yellow [facility] LABORATORY Culture Reflexed No [facility] LABORATORY Specimen Anatomical Collection Method Collection Time Receive d Time (Source) Location / / Volume Laterality Clean Catch 05/16/2022 11:15 05/16/2022 Urine PM EDT 11:30 PM EDT Resulting Agency Comment Spec In Lab Fito Summers MD URINE ORDERABLES Performing Organization Address City/State/[place] [address] Heparin (unfractionated) Level (05/16/2022 [...] City/State/ZIP Code Phon e Number [place] [id number] HOSPITAL LABORATORY Drive XR Chest One View [...] questions please contact the health transitional care manager that requested your imaging first. [...] questions please contact the health transitional care manager that requested your imaging first. Fito Summers MD IMG DX ORDERABLES EKG 12 Lead (05/16/2022 8:57 PM EDT) Component Value Ref Range Test Analysis Performed Pathologis t Method Time At Signature Ventricular rate 117 BPM MUSE SYSTEM QRS Duration 112 ms MUSE SYSTEM Q-T Interval 346 ms MUSE SYSTEM QTC Calculated 482 ms MUSE SYSTEM (Bezet) Calculated R Dania -48 degrees MUSE SYSTEM Calculated T Dania 111 degrees MUSE SYSTEM INTERPRETATION Atrial fibrillation [...] Summers MD ECG ORDERABLES Performing Organization Address City/[facility]/ZIP Code Phon e Number MUSE SYSTEM Heparin (unfractionated) Level (05/16/2022 4:34 PM EDT) P athologist Signature Heparin UFH 0.53 IU/mL [place] [...] Summers MD HEMATOLOGY ORDERABLES Performing Organization Address City/[facility]/[place] [address] ECHOCARDIOGRAM COMPLETE W CONTRAST (05/16/2022 12:49 PM EDT) P athologist Signature EF 28 HEARTLAB SYSTEM Anatomical Region Laterality Modality Cardiac Other Specimen (Source) Anatomical Collection Method Collection Time Re ceived Time Location / / Volume Laterality 05/16/2022 11:22 AM EDT Narrative 05/16/2022 1:54 PM EDT ?[facility] ? [facility] Center ?[address] ? [place] [address] ?Voice: ?Fax: ? Echocardiogram Report Name: KOKO ZAMORA ?Study Date: 05/16/2022 11:22 AM ? Patient Location: 3T 0303 B : 1940 ? Height: 67.5 in ? Account: [id number] Age: 81 yrs ? Weight: 176 lb Gender: Male ?BSA: 1.9 m2 Ordering Physician: FITO SUMMERS Referring Physician: MALI FLORIAN Performed By: Jolene Bernard RDCS Exam Location: [facility]. Interpretation Summary Left ventricle is mildly [...] and LV systolic dysfunction are new. Procedure Complete-[id number]. Image enhancement Optiso n was used for [...] note [place] [id number] Voice: Fax: Echocardiogram Report Name: KOKO ZAMORA Study Date: 05/2022 11:22 AM Patient Location: [address] [place] [address] : 1940 Height: 67.5 in Account: [id number] Age: 81 yrs Weight: 176 lb Gender: Male BSA: 1.9 m2 Ordering Physician: FITO SUMMERS Referring Physician: MALI FLORIAN Performed By: Jolene Bernard RDCS Exam Location: [facility]. Interpretation Summary Left ventricle is mildly [...] and LV systolic dysfunction are new. Procedure Complete-[id number]. Image enhancement Optiso n was used for [...] (ABNORMAL) Differential, Automated (05/16/2022 3:01 AM EDT) [facility] Method Time Signature Neutrophils % 78.8 % [facility] LABORATORY Neutr Abs (ANC) 9.11 (H) 1.70 - [facility] 6.10 [facility] x10(3)/[facility] LABORATORY Lymphocytes % 9.4 % [facility] LABORATORY Lymphocytes Abs 1.1 0.9 - 3.2 [facility] x10(3)/[facility] LABORATORY Monocytes % 10.9 % [facility] LABORATORY Monocyte Abs 1.3 (H) 0.3 - 0.9 [facility] x10(3)/[facility] LABORATORY Eosinophils % 0.0 % [facility] LABORATORY Eosinophils Abs 0.0 0.0 - 0.4 [facility] x10(3)/[facility] LABORATORY Basophils % 0.3 % [facility] LABORATORY Basophils Abs 0.0 0.0 - 0.1 [facility] x10(3)/[facility] LABORATORY Immature Gran % 0.60 % [...] Gran Abs 0.07 (H) 0.00 - 0.04 x10(3)/[facility] LABORATORY Specimen Anatomical Collection Method Collection Time Receive d Time (Source) Location / / Volume Laterality Blood 05/16/2022 3:01 AM 3:36 EDT AM EDT Resulting Agency Comment Spec In Lab Erin Garza MD HEMATOLOGY ORDERABLES Performing Organization Address City/State/ZIP Code Phon e Number [place] [phone] HOSPITAL LABORATORY Drive (ABNORMAL) Hemogram (05/16/2022 3:01 AM EDT) Analysis Performed At Patho logist Time Signature WBC 11.6 (H) 4.0 - 9.5 [facility] x10(3)/[facility] LABORATORY RBC 3.62 (L) 4.58 - [facility] 5.54 [facility] x10(6)/[facility] LABORATORY Hemoglobin 12.0 (L) 13.7 - [facility] 16.5 g/dL [facility] Hematocrit 35.3 (L) 40.5 - [facility] 48.5 % [facility] LABORATORY MCV 97.5 (H) 82.9 - [facility] 93.1 [facility] LABORATORY MCH 33.1 (H) 27.5 - [facility] 32.1 pg [facility] LABORATORY MCHC 34.0 32.0 - [facility] 35.7 g/dL [facility] LABORATORY Platelets 151 145 - 357 [facility] x10(3)/[facility] RDWSD 47.6 (H) 36.0 - [facility] 45.0 [facility] RDWCV 13.3 11.4 - [facility] 13.8 % [facility] LABORATORY MPV 10.5 7.6 - 12.9 [facility] LABORATORY nRBC % Auto 0.0 % [facility] LABORATORY nRBC Abs Auto 0.000 0.000 - [facility] 0.000 [facility] x10(3)/[facility] LABORATORY Specimen Anatomical Collection Method Collection Time Receive d Time (Source) Location / / Volume Laterality Blood 05/16/2022 3:01 AM 2 3:36 EDT AM EDT Resulting Agency Comment Spec In Lab Erin Garza MD HEMATOLOGY ORDERABLES Performing Organization Address City/State/ZIP Code Phon e Number [address] Phosphorus (05/16/2022 3:01 AM EDT) P athologist Signature Phosphorus 3.7 2.5 - 4.5 [facility] mg/dL [facility] LABORATORY Specimen Anatomical Collection Method Collection Time Receive d Time (Source) Location / / Volume Laterality Blood 05/16/2022 3:01 AM 2 3:36 EDT AM EDT Resulting Agency Comment Spec In Lab Fito Summers MD CHEMISTRY ORDERABLES Performing Organization Address City/State/ZIP Code Phon e Number [address] Magnesium (05/16/2022 3:01 AM EDT) P athologist Signature Magnesium 0.77 0.69 - 1.07 [facility] mmol/L [facility] LABORATORY Specimen Anatomical Collection Method Collection Time Receive d Time (Source) Location / / Volume Laterality Blood 05/16/2022 3:01 AM 2 3:36 EDT AM EDT Resulting Agency Comment Spec In Lab Fito Summers MD CHEMISTRY ORDERABLES Performing Organization Address City/[facility]/ZIP Code Phon e Number [address] (ABNORMAL) Basic Metabolic Panel (non-fasting) (05/16/2022 3:01 AM EDT) P athologist Signature Glucose Lvl 222 (H) 65 - 199 [facility] mg/dL [facility] LABORATORY Comment: Diabetes: >=200 mg/dL plus symp toms BUN 12 10 - 20 mg/dL [facility] LABORATORY Creatinine 0.66 (L) 0.80 - 1.50 mg/dL [facility] LABORATORY Sodium 138 135 - 145 mmol/L [facility] LABORATORY Potassium 4.5 3.5 - 5.0 mmol/L [facility] LABORATORY Comment: Please note: ??Patients with [...] Gap 8 5 - 15 mmol/L [facility] LABORATORY Calcium 8.2 (L) 8.5 - 10.5 mg/dL [facility] LABORATORY Estimated GFR 95 >=60 mL/min/1.73 [...] Organization Address City/State/[place] [address] (ABNORMAL) BLOOD GAS 2 ARTERIAL (05/15/2022 3:33 PM EDT) Analysis Performed At Patho logist Time Signature pH Art 7.33 (L) 7.35 - [facility] 7.45 [facility] LABORATORY pCO2 Art 41 35 - 45 [facility] mmHg [facility] LABORATORY pO2 Art 131 (H) 85 - 104 [facility] LABORATORY HCO3 Art 21.1 20.0 - [facility] 26.0 [facility] mmol/L [facility] LABORATORY BE Art -4.8 (L) -3.0 - 3.0 [facility] mmol/L [facility] LABORATORY Hgb Blood Gas 13.4 (L) 13.7 - [facility] 16.5 g/dL [facility] O2HB Art 96.9 94.0 - [facility] 97.0 % [facility] LABORATORY COHB Art 1.4 % [facility] [...] Organization Address City/State/[place] [address] (ABNORMAL) BLOOD GAS 2 ARTERIAL (05/15/2022 2:06 PM EDT) Analysis Performed At Patho logist Time Signature pH Art 7.39 7.35 - [facility] 7.45 [facility] LABORATORY pCO2 Art 35 35 - 45 [facility] mmHg [facility] LABORATORY pO2 Art 135 (H) 85 - 104 [facility] LABORATORY HCO3 Art 20.8 20.0 - [facility] 26.0 [facility] mmol/L [facility] LABORATORY BE Art -4.2 (L) -3.0 - 3.0 [facility] mmol/L [facility] LABORATORY Hgb Blood Gas 14.5 13.7 - [facility] 16.5 g/dL [facility] O2HB Art 97.2 (H) 94.0 - [facility] 97.0 % [facility] LABORATORY COHB Art 1.2 % [facility] [...] Torre MD CHEMISTRY ORDERABLES Performing Organization Address City/[facility]/[place] [address] (ABNORMAL) Prothrombin Time (05/15/2022 12:30 PM EDT) P athologist Signature PT 12.9 (H) 9.4 - 12.5 [facility] LABORATORY INR 1.1 [facility] Morales DO HEMATOLOGY ORDERABLES Performing Organization Address City/[facility]/ZIP [facility] [place] [address] (ABNORMAL) APTT (05/15/2022 12:30 [...] Organization Address City/State/[place] [address] Gold Tube HOLD (05/15/2022 12:20 PM EDT) P athologist Signature Gold Hold Sample in [facility]. [facility] LABORATORY Specimen Anatomical Collection Method Collection Time Receive d Time (Source) Location / / Volume Laterality Blood No Charge / 05/15/2022 12:20 05/15/2022 Unknown PM EDT 12:20 PM EDT Lc Tan Kimberly TRIPP CHEMISTRY ORDERABLES Performing Organization Address City/[facility]/[place] [address] Type and Screen Validity (05/15/2022 12:00 PM EDT) [facility] gist Method Time Signature T&S only valid [facility] LABORATORY Comment: This Type and Screen result is only valid at the [facility] Specimen Anatomical Collection Method Collection Time Receive d Time (Source) Location / / Volume Laterality Blood 05/15/2022 12:00 05/15/2022 PM EDT 12:17 PM EDT Resulting Agency Comment Spec In Lab Lc Harris PA BLOOD BANK ORDERABLES Performing Organization Address City/[facility]/ZIP Code Phon e Number [address] ABORH Recheck Status (05/15/2022 12:00 PM EDT) [facility] gist Method Time Signature ABORH Recheck Order Placed [facility] K Order [facility] LABORATORY ABORH Type Complete [facility] LABORATORY Specimen Anatomical Collection Method Collection Time Receive d Time (Source) Location / / Volume Laterality Blood 05/15/2022 12:00 05/15/2022 PM EDT 12:17 PM EDT Resulting Agency Comment Spec In Lab Lc Tan Kimberly PA BLOOD BANK ORDERABLES Performing Organization Address City/State/[place] [address] CK (05/15/2022 12:00 PM EDT) P athologist Signature CK, Total 87 0 - 200 [facility] unit/L [facility] LABORATORY Specimen Anatomical Collection Method Collection Time Receive d Time (Source) Location / / Volume Laterality Blood Venous Draw / 05/15/2022 12:00 05/15/2022 Unknown PM EDT 12:19 PM EDT Resulting Agency Comment Spec In Lab Fito Summers MD CHEMISTRY ORDERABLES Performing Organization Address City/State/[place] [address] Antibody screen (05/15/2022 12:00 PM EDT) [facility] Method Time Signature Ab Screen Negative [facility] LABORATORY Expires at 05/18/2022 [facility] [id number] on: [facility] LABORATORY Specimen Anatomical Collection Method Collection Time Receive d Time (Source) Location / / Volume Laterality Blood 05/15/2022 12:00 05/15/2022 PM EDT 12:17 PM EDT Resulting Agency Comment Spec In Lab Lc TRIPP BLOOD BANK ORDERABLES Performing Organization Address City/[facility]/ZIP Code Phon e Number [address] ABO/Rh Typing (05/15/2022 12:00 PM EDT) athologist Signature ABORh Type O Pos [facility] LABORATORY Specimen Anatomical Collection Method Collection Time Receive d Time (Source) Location / / Volume Laterality Blood 05/15/2022 12:00 05/15/2022 PM EDT 12:17 PM EDT Resulting Agency Comment Spec In Lab Lc TRIPP BLOOD BANK ORDERABLES Performing Organization Address City/[facility]/[place] [address] (ABNORMAL) Differential, Automated (05/15/2022 12:00 PM EDT) [facility] Method Time Signature Neutrophils % 79.4 % [facility] LABORATORY Neutr Abs (ANC) 7.49 (H) 1.70 - [facility] 6.10 [facility] x10(3)/[facility] L LABORATORY Lymphocytes % 11.3 % [facility] LABORATORY Lymphocytes Abs 1.1 0.9 - 3.2 [facility] x10(3)/[facility] LABORATORY Monocytes % 7.8 % [facility] LABORATORY Monocyte Abs 0.7 0.3 - 0.9 [facility] x10(3)/[facility] LABORATORY Eosinophils % 0.6 % [facility] LABORATORY Eosinophils Abs 0.1 0.0 - 0.4 [facility] x10(3)/[facility] LABORATORY Basophils % 0.6 % [facility] LABORATORY Basophils Abs 0.1 0.0 - 0.1 [facility] x10(3)/[facility] LABORATORY Immature Gran % 0.30 % [...] 0.04 x10(3)/[facility] LABORATORY Specimen Anatomical Collection Method Collection Time Receive d Time (Source) Location / / Volume Laterality Blood 05/15/2022 12:00 05/15/2022 PM EDT 12:19 PM EDT Resulting Agency Comment Spec In Lab Lc TRIPP HEMATOLOGY ORDERABLES Performing Organization Address City/State/[place] [address] (ABNORMAL) Hemogram (05/15/2022 12:00 PM EDT) Analysis Performed At Patho logist Time Signature WBC 9.4 4.0 - 9.5 [facility] x10(3)/[facility] LABORATORY RBC 4.48 (L) 4.58 - [facility] 5.54 [facility] x10(6)/[facility] LABORATORY Hemoglobin 14.5 13.7 - [facility] 16.5 g/dL [facility] LABORATORY Hematocrit 42.4 40.5 - [facility] 48.5 % [facility] LABORATORY MCV 94.6 (H) 82.9 - [facility] 93.1 [facility] LABORATORY MCH 32.4 (H) 27.5 - [facility] 32.1 pg [facility] LABORATORY MCHC 34.2 32.0 - [facility] 35.7 g/dL [facility] LABORATORY Platelets 209 145 - 357 [facility] x10(3)/[facility] LABORATORY RDWSD 45.9 (H) 36.0 - [facility] 45.0 [facility] LABORATORY RDWCV 13.1 11.4 - [facility] 13.8 % [facility] LABORATORY MPV 10.5 7.6 - 12.9 [facility] LABORATORY nRBC % Auto 0.0 % [facility] LABORATORY nRBC Abs Auto 0.000 0.000 - [facility] 0.000 [facility] x10(3)/[facility] LABORATORY Specimen Anatomical Collection Method Collection Time Receive d Time (Source) Location / / Volume Laterality Blood 05/15/2022 12:00 05/15/2022 PM EDT 12:19 PM EDT Resulting Agency Comment Spec In Lab Lc TRIPP HEMATOLOGY ORDERABLES Performing Organization Address City/State/[place] [address] (ABNORMAL) Basic Metabolic Panel (non-fasting) (05/15/2022 12:00 PM EDT) P athologist Signature Glucose Lvl 203 (H) 65 - 199 [facility] mg[facility] LABORATORY Comment: Diabetes: >=200 mg/dL plus symp toms BUN 16 10 - 20 mg/dL [facility] LABORATORY Creatinine 0.84 0.80 - 1.50 mg/dL [facility] LABORATORY Sodium 141 135 - 145 mmol/L [facility] LABORATORY Potassium 4.7 3.5 - 5.0 mmol/L [facility] LABORATORY Comment: Please note: ??Patients with [...] Gap 11 5 - 15 mmol/L [facility] LABORATORY Calcium 8.5 8.5 - 10.5 mg/dL [facility] LABORATORY Estimated GFR 89 >=60 mL/min/1.73 [...] Organization Address City/State/[place] [address] documented in this encounter [...] mg = 1.8 mg/kg/dose ? 67.7 kg [place] weight), Intravenous, at 11.3 mL/hr, EVERY 3 [...] mg = 2.4 mg/kg/dose ? 67.7 kg [place] weight), Intravenous, at 15 mL/hr, ONCE, 1 [...] mg = 0.24 mg/kg/dose ? 67.7 kg [place] weight), Oral, 2 TIMES DAILY, 2 doses, [...] mg = 0.48 mg/kg/dose ? 67.7 kg [place] weight), Oral, 2 TIMES DAILY, 2 doses, [...] mg = 0.12 mg/kg/dose ? 67.7 kg [place] weight), Oral, 2 TIMES DAILY, 2 doses, First dose on [facility] 05/18/22 at 0900, Last dose on [facility] 05/18/22 at 2100, Hold for [...] (CANCEL ED) 0838 (Given - Provider: Caroline aZmora RN)2008 (Given - Provider: Nuris Lester RN) [...] [facility] Unhold - Provider: Admin Adt)2005 (Given [...] [facility] Unhold - Provider: Admin Adt) 650 [...] bisacodyL (Dulcolax) suppository 10 mg 1 751 ([facility] [...] midazolam (pf) (Versed) (1 mg/mL) multi-dose injection ([facility]) 1713 (Given - Provider: Abundio Servin [...]
Routine documented in this encounter Care Teams Wood Patternmaker Relationship Specialty Start Date End Date Bobby Das MD PCP - General 10/02/[address] [place] [address] [place] [phone] documented as of this encounter
--- OUTSIDE RECORDS SUMMARY | 2022-07-24 09:21 | XMS_ITS | Encounter Summary ---
:1940 Author Organization [facility] [place] [address] Care Team Providers Name Role Phone Bobby Das MD Primary Care Provider Reason for Referral Diagnostic Test (Routine) - Closed Specialty Diagnoses / Procedures Referred By Contact Refer red To Contact Radiology Diagnoses Compression fracture of T9 vertebra, initial encounter Alphonso Esquivel DO [facility] Rad Procedures IR Vertebroplasty Thoracic [facility] [place] [address] [place] [address] Referral ID Status Reason Start Date Expiration Date Visits V isits Requested Authorized [id number] Closed Specialty 10/13/2020 04/13/2022 1 1 Service Requested Reason for Visit Diagnostic Test (Routine) - Closed Specialty Diagnoses / Procedures Referred By Contact Refer red To Contact Radiology Diagnoses Compression fracture of T9 vertebra, initial encounter Alphonso Esquivel DO [facility] Inter[facility] Rad Procedures IR Vertebroplasty Thoracic [facility] [place] [address] [place] [address] Referral ID Status Reason Start Date Expiration Date Visits V isits Requested Authorized [id number] Closed Specialty 10/13/2020 04/13/2022 1 1 Service Requested Encounter Details Date Type Department Care Team Description 10/25/2020 Hospital Encounter Radiology at [facility] Esquivel, Alphonso R, Compression fracture [facility] DO of T9 vertebra, Drive [facility] initial encounter [place], [place] CENTER [address] DIAGNOSTIC [phone] [place] [address] Social History Tobacco Use Types Packs/Day Years [...] Vargas RN - 10/25/2020 9:13 AM EST [facility] Discharge Instructions for Vertebroplasty Your [...] is during regular office hours, please call [phone]. If it is after regular office hours, oron weekends or holidays, please call [phone] and ask to speak to the Client Retention Specialist on callfor Interventional Radiology. XXX You [...] of : 1940 AGE: 80 y.o. Address: [address] [place] [address] (home) Mobile: No relevant phone numbers on file. Referring Provider: Alphonso Esquivel REASON FOR VISIT: Order Questions Answers Where will study be performed? [facility] Radiology [120] Is the [...] Negra Collins MD [facility] GASTROENTEROLOGY DEPT [place], [place] [address] (Wo rk) 09/05/2022 Appointment Cardiology Trinity Reid MD [facility] CARDIOLOGY [place], [place] [address] (Wo rk) 09/05/2022 Office Visit Cardiology Trinity Reid MD [facility] CARDIOLOGY [place], [place] 0[address] (Wo rk) documented as of [...] made and a 13g a introducer needle ([employer] was advanced through the right pedicle and t o the ??T9 vertebral body during an intermittent fluoroscopic guidance. The [employer] biopsy cannula was advanced through the introducer [...] was made and a 13ga introducer needle ([employer]) was advanced through the left pedicle and [...] the interservice administration of fentanyl and Versed [facility] continuous monitoring of blood pressure, oxygenation and [...] made and a 13g a introducer needle ([employer] was advanced through the right pedicle and t o the T9 vertebral body during an intermittent fluoroscopic guidance. The [place] biopsy cannula was advanced through the introducer [...] was made and a 13ga introducer needle ([employer]) was advanced through the left pedicle and [...] [facility] Method Time Signature Surgical [id number] ? Location: [address] [place] [address] Pathology FLOWOOD Report The signing pathologist has (i) examined [...] Bone & Soft Tissue Pathologist Performed at: ??-[facility] Dept. of Pathology, [place], [place] DISCUSSION I see no neoplastic process [...] DO PATHOLOGY/CYTOLOGY ORDERABLE S Performing Organization Address City/[facility]/[place] [address] Specimen to Pathology (10/25/2020 8:26 AM EST) Specimen Anatomical Collection Method Collection Time Receive d Time (Source) Location / / Volume Laterality AP Specimen 10/25/2020 8:26 AM 0 8:26 EST AM EST Narrative [facility] - 10/25/2020 8:26 AM EST Specimen requisition ordered. ??Separate Pathology report to follow Alphonso Esquivel DO PATHOLOGY/CYTOLOGY ORDERABLE S Performing Organization Address City/[facility] Code Phon e Number [address] documented in this encounter [...] Procedure) documented in this encounter Care Teams Rn Transplant Relationship Specialty Start Date End Date Bobby Das MD PCP - General 10/02/[address] [place] [address] [place] [address] documented as of this encounter
--- OUTSIDE RECORDS SUMMARY | 2022-07-24 09:21 | XMS_ITS | Encounter Summary ---
:1940 Author Organization [facility] [place] [address] Care Team Providers Name Role Phone Bobby Das MD Primary Care Provider Encounter Details Date Type Department Care Team Description 05/15/2022 Ancillary Procedure Radiology Library at [facility] [place], [facility], Lavell Butt, [facility] [place] [address] VASCULAR SURGERY [phone] [place] [id number] (Wo rk) Social History Tobacco Use Types [...] [facility] DR GASTROENTEROLOGY DEPT [place], [place] [address] (Wo rk) 09/05/2022 Appointment Cardiology Trinity Reid MD [facility] CARDIOLOGY [place], [place] [address] (Wo rk) 09/05/2022 Office Visit Cardiology Trinity Reid MD [facility] CARDIOLOGY [place], [place] [address] (Wo rk) documented as of [...] Organization Address City/State/ZIP Code Phon e Number [place], [place] documented in this encounter Visit Diagnoses Not on filedocumented in this encounter Care Teams Ticket Counter Relationship Specialty Start Date End Date Bobby aDs MD PCP - General 10/02/[address] [place] [address] [place] [phone] documented as of this encounter
--- OUTSIDE RECORDS SUMMARY | 2022-07-24 09:21 | XMS_ITS | Encounter Summary ---
:1940 Author Organization [facility] [place] [address] Care Team Providers Name Role Phone Bobby Das MD Primary Care Provider Encounter Details Date Type Department Care Team Description 09/18/2018 Telephone Dermatology at [facility] Yolanda Fraser RN [address] [place] [address] Social History Tobacco Use Types Packs/Day [...] Who lives with patient (i.e. spouse, children, assisted/mcc)? Spouse Relevant travel history or future plans: [...] [facility] GASTROENTEROLOGY DEPT [place], [place] [address] (Wo rk) 09/05/2022 Appointment Cardiology Trinity Reid MD [facility] CARDIOLOGY [place], [place] [address] (Wo rk) 09/05/2022 Office Visit Cardiology Trinity Reid MD [facility] CARDIOLOGY [place], [place] [address] (Wo rk) documented as of this encounter Visit Diagnoses Not on filedocumented in this encounter Care Teams Metal Model Builder Relationship Specialty Start Date End Date Bobby Das MD PCP - General 10/02/[address] [place] [address] [place] [phone] documented as of this encounter
--- OUTSIDE RECORDS SUMMARY | 2022-07-24 09:21 | XMS_ITS | Encounter Summary ---
:1940 Author Organization [facility] [place] [address] Care Team Providers Name Role Phone Bobby Das MD Primary Care Provider Encounter Details Date Type Department Care Team Description 09/22/2020 Telephone Pain and Spine [facility] reid [place] [facility] [place] [address] Social History Tobacco Use Types Packs/Day [...] [facility] GASTROENTEROLOGY DEPT [place], [place] [address] (Wo rk) 09/05/2022 Appointment Cardiology Trinity Reid MD [facility] CARDIOLOGY [place], [place] [address] (Wo rk) 09/05/2022 Office Visit Cardiology Trinity Reid MD [facility] CARDIOLOGY [place], [place] [address] (Wo rk) documented as of this encounter Visit Diagnoses Not on filedocumented in this encounter Care Teams Coal Gasification Technician Relationship Specialty Start Date End Date Bobby Das MD PCP - General 10/02/[address] [place] [address] [place] [phone] documented as of this encounter
--- OUTSIDE RECORDS SUMMARY | 2022-07-24 09:21 | XMS_ITS | Encounter Summary ---
:1940 Author Organization [facility] Address [facility] [place] [address] Care Team Providers Name Role Phone Bobby Das MD Primary Care Provider Reason for Visit - Closed Specialty Diagnoses / Procedures Referred By Contact Refer red To Contact Procedures Bobby Das MD Film Library- Storage Only [address] [place] [phone] Referral ID Status Reason Start Date Expiration Date Visits Requ ested Visits Authorized [id number] Closed 02/23/2021 02/23/2022 1 1 Encounter Details Date Type Department Care Team Description 02/20/2021 Ancillary Procedure Radiology Library at Bobby Almaguer MD [address] [phone] [phone] (Rebekah rojas) Social History Tobacco Use Types [...] [facility] DR GASTROENTEROLOGY DEPT [place], [place] [address] (Wo rk) 09/05/2022 Appointment Cardiology Trinity Reid MD [facility] CARDIOLOGY [place], [place] [address] (Wo rk) 09/05/2022 Office Visit Cardiology Trinity Reid MD [facility] CARDIOLOGY [place], [place] [address] (Wo rk) documented as of [...] Address City/State/ZIP Code Phon e Number [place], [place] documented in this encounter Visit Diagnoses Not on filedocumented in this encounter Care Teams Meat Service Team Member Relationship Specialty Start Date End Date Bobby Das MD PCP - General 10/02/[address] [place] [address] [place] [phone] documented as of this encounter
--- OUTSIDE RECORDS SUMMARY | 2022-07-24 09:21 | XMS_ITS | Encounter Summary ---
:1940 Author Organization [facility] Address [facility] [place] [address] Care Team Providers Name Role Phone Bobby Das MD Primary Care Provider Encounter Details Date Type Department Care Team Description 10/25/2020 Laboratory Appointment Lab at [facility] Compression fracture [facility] of T9 [place] [address] Social History Tobacco Use Types Packs/Day Years [...] [facility] DR GASTROENTEROLOGY DEPT [place], [place] [address] (Wo rk) 09/05/2022 Appointment Cardiology Trinity Reid MD [facility] CARDIOLOGY [place], [place] [address] (Wo rk) 09/05/2022 Office Visit Cardiology Trinity Reid MD [facility] CARDIOLOGY [place], [place] [address] (Wo rk) documented as of this encounter Procedures Procedure Name Priority Date/Time Associated Diagnosis Comme [facility] VENIPUNCTURE Routine 10/25/2020 6:35 AM Compression [...] Platelets 192 145 - 357 [facility] x10(3)/[facility] LABORATORY Plat Immature 2.6 0.0 - 7.4 [facility] % % [facility] LABORATORY Comment: Limitation of the Immature Platelet Frac tion (IPF)-May be less reliable when the platelet count is less than 23l230/u L due to statistical imprecision. The IPF [...] in a decreased state of production. References: [employer] The Clinical Value of the Immature Platelet Fraction (IPF) in Cell Recovery Document Number 10-1143 04/2011 [employer] The Role of the Imm ature [...] Organization Address City/State/[place] [address] Prothrombin Time (10/25/2020 6:35 AM EST) athologist Signature PT 10.8 9.4 - 12.5 [facility] LABORATORY INR 1.0 [facility] LABORATORY Comment: An INR <2.0 [...] City/State/ZIP Code Phon e Number [place] [phone] HOS[address] LAB[address] documented in this encounter Visit Diagnoses Diagnosis Compression fracture of T9 vertebra, ini tial encounter documented in this encounter Care Teams Globe Mounter Relationship Specialty Start Date End Date Bobby Das MD PCP - General 10/02/[address] [place] [address] [place] [phone] documented as of this encounter
--- OUTSIDE RECORDS SUMMARY | 2022-07-24 09:21 | XMS_ITS | Encounter Summary ---
:1940 Author Organization [facility] [place] [address] Care Team Providers Name Role Phone Bobby Das MD Primary Care Provider Encounter Details Date Type Department Care Team Description 09/06/2020 Ancillary Procedure Radiology at [facility] Amy Grimaldo [address] [place] [address] [address] [phone] NEUROSURGERY-N [place], [place] [address] Social History Tobacco Use Types [...] MD [facility] GASTROENTEROLOGY DEPT [place], [place] [address] (Wo rk) 09/05/2022 Appointment Cardiology Trinity Reid MD [facility] CARDIOLOGY [place], [place] [address] (Wo rk) 09/05/2022 Office Visit Cardiology Trinity Ried MD [facility] CARDIOLOGY [place], [place] [address] (Wo rk) documented as of [...] Organization Address City/State/ZIP Code Phon e Number [place], [place] documented in this encounter Visit Diagnoses Not on filedocumented in this encounter Care Teams Bell Clerk Relationship Specialty Start Date End Date Bobby Das MD PCP - General 10/02/[address] [place] [address] [place] [phone] documented as of this encounter
--- OUTSIDE RECORDS SUMMARY | 2022-07-24 09:21 | XMS_ITS | Encounter Summary ---
:1940 Author Organization [facility] [place] [address] Care Team Providers Name Role Phone Bobby Das MD Primary Care Provider Reason for Referral Consultation (Routine) - Closed Specialty Diagnoses / Procedures Referred By Contact Refer red To Contact Neurology Diagnoses Low back pain, non-specific Status post vertebroplasty Transient left leg weakness EMG Arpita Whitney APRN [facility] Neurology [address] [place], [place] [phone] [place] [phone] Fax: Referral ID Status Reason Start Date Expiration Date Visits V isits Requested Authorized [id number] Closed Consult, 04/17/2021 04/17/2022 1 1 Test & Treat hysical Therapy (Routine) - Specialty Diagnoses / Procedures Referred By Contact Refer red To Contact Diagnoses Low back pain, non-specific Status post vertebroplasty [place] [address] Referral ID Status Reason Start Date Expiration Date Visits V isits Requested Authorized [id number] Evaluate and 04/17/2021 10/14/2021 12 12 Treat Reason for Visit Reason Comments Back Pain new patient visit Consultation (Routine) - Closed Specialty Diagnoses / Procedures Referred By Contact Refer red To Contact [facility] Diagnoses Low back pain Pain - Low back pain/ MRI 02/20/21 & XR 01/31/21 @ [facility] Bobby Das MD [facility] Ctr Pain And [address] [place], [place] Drive [address] [place] [address] Phone: Fax: Referral ID Status Reason Start Date Expiration Date Visits Requ ested Visits Authorized [id number] Closed 03/07/2021 03/07/2022 1 1 Encounter Details Date Type Department Care Team Description 04/17/2021 Office Visit Pain [facility] Sp[facility] Center Arpita Whitney Lo w back pain, non-specific; at [facility] REFERENCE AND INSTRUCTION LIBRARIAN Status post vertebroplasty; [facility] Tra nsient left leg weakness Drive [place], [place] [phone] Social History Tobacco [...] from the original note were not included. [facility] Date [...] here for today. Had lumbar imaging and [facility] as ordered by PCP with [...] standing limited due to back pain [facility] Prescription Monitoring Program was checked. The number of prescriptions reported was 0. Current Medications: Outpatient Medications Marked as Taking for the 04/17/21 encounter (Office Visit) with Arpita Whitney APRN Medication Sig Dispense Refill ??? fluticasone propionate (FLONASE) 50 mcg/actuation [place], Suspension as needed. ??? fluorouraciL (EFUDEX) 5 [...] IR Biopsy Spine 07/20/2019 Bobby Marshall MD [facility] INTERVENTIONL RAD ??? IR VERTEBROPLASTY LUMBAR MULTIPLE LEVELS 07/20/2019 IR Vertebroplasty Lumbar Multiple Levels 07/20/2019 Bobby Marshall MD [facility] INTERVENTIONL RAD ??? IR VERTEBROPLASTY THORACIC SINGLE LEVEL 10/25/2020 IR Vertebroplasty Thoracic Single Level 10/25/2020 Matt Chisholm MD [facility] INTERVENTIONL RAD Review of Systems: ROS: Denies [...] y.o. year-old male who presents to the [facility] for [facility] Spine clinic, previously [...] Mr. Koko Zamora's care. Arpita Whitney, MSN, SECURITY PATROL OFFICER- C, REFERENCE AND INSTRUCTION LIBRARIAN Nurse Practitioner [facility] [place] [phone] / [facility] documented in this encounter Plan of Treatment Upcoming Encounters Date Type Specialty Care Team Description 08/08/2022 Office Visit Gastroenterology Negra Collins MD [facility] GASTROENTEROLOGY DEPT [place], [place] [address] (Wo rk) 09/05/2022 Appointment Cardiology Trinity Reid MD [facility] CARDIOLOGY [place], [place] [address] (Wo rk) 09/05/2022 Office Visit Cardiology Trinity Reid MD [facility] CARDIOLOGY [place], [place] [address] (Wo rk) Scheduled Referrals Name [...] limbs documented in this encounter Care Teams Rn Training Relationship Specialty Start Date End Date Bobby Das MD PCP - General 10/02/[address] [place] [address] [place] [phone] documented as of this encounter
--- OUTSIDE RECORDS SUMMARY | 2022-07-24 09:21 | XMS_ITS | Encounter Summary ---
:1940 [place] [address] Care Team Providers Name Role Phone Bobby Das MD Primary Care Provider Reason for Visit Reason Comments Left Leg Pain Auth/Cert Specialty Diagnoses / Procedures Referred By Contact Refer red To Contact Diagnoses Limb ischemia LLE thrombus Fito Summers MD [facility] [place] [address] Referral ID Status Reason Start Date Expiration Date Visits Requ ested Visits Authorized [id number] 1 1 Encounter Details Date Type Department Care Team Description 05/15/2022 Surgery Main Operating Room Savana Summers se, MD [facility] FEMOROPOSANG, [facility] VASCULAR SURG JULIAN [place] [address] LEG INCISION ([place] [address] 19.48) [phone] Social History Tobacco Use Types Packs/Day Years [...] onset Afib who presents in transfer from [facility] with acute limb ischemia of [...] emergently went to the OR for L APPRAISAL ANALYST transverse arteriotomy and primary repair, thromboembolectomy of L SFA/PFA/APPRAISAL ANALYST, reperfusion venous drainage for 250 cc, and [...] Discharge Condition: Good Discharge to: Home with [facility] [address] [address] Future Appointments and Orders Future Appointments and Orders Future Appointments Provider Department Dept Phone 05/23/2022 10:30 AM Loretta Cohen MD Dermatology at [facility] Arrive at: Office Support Assistant [address] [place] [address] 06/07/2022 1:30 PM Gail Rae APRN Vascular Surgery at [facility] Arrive at: Office Support Assistant Area [phone] 06/13/2022 7:30 AM Edson Lagos [place] Vascular Lab at [facility] Arrive at: Office Support Assistant Area [phone] 06/13/2022 8:00 AM Fito Summers MD Vascular Surgery at [facility] Arrive at: Office Support Assistant Area 3V [phone] 06/13/2022 10:00 AM Alan Reid MD Cardiology at [facility] Arrive at: Office Support Assistant Area 4A [phone] Future Orders Complete By Expires Ziopatch 48 Hrs-15 Days [ALM7920 CPT(R)] 05/21/2022 11/20/2022 Process Instructions: Scheduling Instructions: Comments: Questions: Does the patient have a pacemaker? If yes provide HI/LO settings: Apply for 7 or 14 days?: 7 Where will study be performed?: [facility] JOSSELYN, legs, multiple levels [VAS8 Custom] 06/21/2022 (Approximate) 12/21/2022 Process Instructions: There is no in-house vascular wheelabrator operator available on weeknights (5pm-8am), weekends, or holidays. IF THIS IS A REQUEST FOR AN EMERGENT STUDY DURING THOSE HOURS, please have the senior provider responsible for the patient page the Vascular Surgery Fellow/Senior Resident an/sqq [phone](v)15 sonar system journeyman to discuss options. Scheduling Instructions: Questions: Indication for study/signs & symptoms: ALI s/p L fem cutdown with thromboembolectomy Question to be answered: Perfusion to feet? Please check toe pressure Preferred location?: [facility] Referral to Cardiology [REF12 Custom] [...] [address] [facility] [address] (home) Date of : 1940 Inpatient DOCUMENTATION FOR VNA SERVICES (INCLUDING THOSE PATIENTS WITH MEDICARE COVERAGE REQUIRING HOME VNA SERVICES AND/OR HOSPICE SERVICES) PATIENT'S LOCATION: Koko Zamora [address] [facility] [address] (home) Cell: No relevant phone numbers on file. Dehydrogenation Operator's Name: Koko In discussion with the attending physician, it is certified that this patient is under their care and that they, or a Nurse Practitioner,Clinical Nurse specialist or Physician Pipelaying Fitter who is working directly with them, had [...] for managing ADL's. HOME HEALTH CARE AGENCY: [facility] [address] [place] [address] Start of care: Within 24 to 48 [...] from this patient'sPCP: Bobby Das MD [address] [place] [address] / [place] [address] All VNA agencies which cover the [...] For any problems or questions please call [phone] For issues on weeknights after 5pm and weekends please call [phone] and ask for the Vascular Fellow an/sqq [phone](v)15 sonar system journeyman. JOSEE Santiago Vascular Surgery 05/21/2022 documented in [...] For any problems or questions please call [phone] For issues on weeknights after 5pm and weekends please call [phone] and ask for the Vascular Fellow an/sqq 89(v)15 sonar system journeyman. documented in this encounter Medications at Time [...] 04/12/20 21 (FLONASE) 50 mcg/actuation Nare route [place], Suspension daily as needed. fluorouraciL (EFUDEX) 5 [...] onset Afib who presents in transfer from [facility] with acute limb ischemia of [...] status, full code. JOSEE Santiago 05/21/2022 Pager: [phone] PaBrannon gamino, PT - 05/21/2022 10:35 AM [...] plan as stated. Time IN / OUT: 6425-5731 Total Minutes, Physical Therapy: 25 Billing Code: 2 TA Brannon Isaacs DPT Pager: [phone] Physical Therapy Inpatient Rehabilitation Department [place] Jean [...] 04/17/2021 in Pain and Spine Center at [facility] Weight 79.8 kg (175 [...] and plan of care per Dr. Mcnamara (queen producer). Please refer to her note above for [...] limb ischemia (thromboembolic) and he is a fdc smoker (1/2 ppd, recommend nicotine patch). His [...] after one month. Other details as above. Tree Blankenship RN - 05/21/2022 5:49 AM EDT [...] to Hosp-Admission (Current) from 05/15/2022 in 4 [facility] Office Visit from 04/17/2021 in Pain and Spine Center at [facility] Weight 79.8 kg (175 [...] findings andplan of care per Dr. Mcnamara (queen producer). Please refer to her note above for [...] a mitral repair in 2000 (not at [facility]) with no CAD at [...] AF and the first documented HR at [facility] was 125 bpm (presented [...] onset Afib who presents in transfer from [facility] with acute limb ischemia of [...] management following Dottie Hill APRN 05/20/2022 Pager: [phone] Laney Atkins RN - 05/20/2022 1:14 AM EDT Pt Koko transferred to room from [facility]. A&Ox4, oriented to room and call boo. Masimo and telemetry placed. In agreement with assessment as documented this evening by Nuris ASHLEY. No complaints at this time. Pt aware of NPO status and plan for cardiac cath in AM. Urinal provided. Resting comfortably in bed. Nuris Lester RN - 05/20/2022 1:09 AM EDT Pt. Transferred to [facility]. RN accompanied patient to floor and handed off to [facility] RN Dottie Hill APRN - 05/19/2022 10:02 AM EDT Vascular Surgery Progress Note Koko Zamora is a 81 y.o. male with w new onset Afib who presents in transfer from [facility] with acute limb ischemia of [...] management following Dottie Hill APRN 05/19/2022 Pager: [phone] Emily Sauceda RN - 05/19/2022 6:28 AM EDT OUTCOME EVALUATION NOTE: OUTCOME SUMMARY: Patient AOx4, VSS on RA. Afib on tele. HR controlled w/ PRN metop, given x2. Denies CP, SOB, n/v. See flowsheets for NVC. Dressings to LLE CDI, prevena WV to groin intact. Voiding to urinal. LBM SENIOR COPYWRITER, patient stating he will maybe try the [...] adequately without difficulty to bedside urinal. LBM SENIOR COPYWRITER. Up to chair this AM with nursing staff. Worked with PT, tolerated well. Diet changed to regular at 1800.Plan is for cardiac cath on Friday. PLAN MOVING FORWARD: Bleeding precautions Pain management neurovascular checks PT/OT labor union business representative INDIVIDUALIZED FALL PREVENTION INTERVENTIONS: Patient-specific fall risk [...] onset Afib who presents in transfer from [facility] with acute limb ischemia of [...] mL Intravenous BID ??? PHENobarbitaL 0.12 mg/kg/dose ([place]) Oral BID ??? thiamine 100 mg Oral [...] management following Dottie Hill APRN 05/18/2022 Pager: [phone] Brannon Isaacs, PT - 05/18/2022 10:00 AM [...] IR Biopsy Spine 07/20/2019 Bobby Marshall MD [facility] INTERVENTIONL RAD ??? IR VERTEBROPLASTY LUMBAR MULTIPLE LEVELS 07/20/2019 IR Vertebroplasty Lumbar Multiple Levels 07/20/2019 Bobby Marshall MD [facility] INTERVENTIONL RAD ??? IR VERTEBROPLASTY THORACIC SINGLE LEVEL 10/25/2020 IR Vertebroplasty Thoracic Single Level 10/25/2020 Matt Chisholm MD [facility] INTERVENTIONL RAD ??? PRO EMBLC/THRMBC FEMORAL POPLITEAL AORTO-ILIAC ARTERY Left 05/15/2022 EMBOLECTOMY OR THROMBECTOMY, FEMOROPOPLITEAL, AORTOILIAC ARTERY BY LEG INCISION (WRVU 19.48) performed by Fito Summers MD at [facility] MAIN OR Social History: Pt lives [...] in this evaluation. Time IN / OUT: 3044-6096 Total Minutes, Physical Therapy: 30 Billing Code: Basilio Isaacs, PT Pager: [phone] Physical Therapy Inpatient Rehabilitation Department Emily Sauceda RN - 05/18/2022 4:34 AM EDT OUTCOME EVALUATION NOTE: OUTCOME SUMMARY: Patient AOx4, VSS on 2LNC. Afib on tele. HR above 120, MD aware, PRN IV metop given x1, HR returned to 90's-low 100's. Denies CP, SOB, n/v. See flowsheets for NVC. Dressings to LLE CDI, prevena WV to groin intact. Voiding to urinal. LBM SENIOR COPYWRITER. Heparin gtt therapeutic. Pain controlled. Patient sleeping [...] adequately without difficulty to bedside urinal. LBM SENIOR COPYWRITER. Patient not OOB this shift. Currently NPO awaitingprocedure in greens laborer. PLAN MOVING FORWARD: Bleeding precautions Pain management neurovascular checks PT/OT NPO for greens laborer INDIVIDUALIZED FALL PREVENTION INTERVENTIONS: Patient-specific fall [...] the Emergency Department as a transfer from [facility] with left lower extremity limb ischemia. He went to [facility] and was startedon heparin [...] he will will be going to the greens laborer for evaluation. Will defer PT eval at present but will see as ordered post cardiac catheritizaton. Social Hx:Pt lives with his Ursula in [place], [place] in a 2 level home in [...] WBAT LLE LISBET HERMAN PT Pager # [phone] In-Pt Rehab Medicine Dottie Hill APRN - 05/17/2022 7:42 AM EDT Vascular Surgery Progress Note Koko Zamora is a 81 y.o. male with w new onset Afib who presents in transfer from [facility] with acute limb ischemia of [...] mL Intravenous BID ??? PHENobarbitaL 0.24 mg/kg/dose ([place]) Oral BID Followed by ??? [START ON 05/18/2022] PHENobarbitaL 0.12 mg/kg/dose ([place]) Oral BID ??? thiamine 100 mg Oral [...] management following Dottie Hill APRN 05/17/2022 Pager: [phone] Sary Dos Santos, RN - 05/17/2022 12:16 [...] onset Afib who presents in transfer from [facility] with acute limb ischemia of [...] mL Intravenous BID ??? PHENobarbitaL 0.48 mg/kg/dose ([place]) Oral BID Followed by ??? [START ON 05/17/2022] PHENobarbitaL 0.24 mg/kg/dose ([place]) Oral BID Followed by ??? [START ON 05/18/2022] PHENobarbitaL 0.12 mg/kg/dose ([place]) Oral BID ??? thiamine 100 mg Oral [...] management following Edward Rodríguez MD 05/16/2022 Pager: [phone] Sary Dos Santos RN - 05/16/2022 12:52 [...] 2129 Hand off to DION Ramirez 3 [place] documented in this encounter H&P Notes Kerry [...] onset Afib who presents in transfer from [facility] with acute limb ischemia of [...] IR Biopsy Spine 07/20/2019 Bobby Marshall MD [facility] INTERVENTIONL RAD ??? IR VERTEBROPLASTY LUMBAR MULTIPLE LEVELS 07/20/2019 IR Vertebroplasty Lumbar Multiple Levels 07/20/2019 Bobby Marshall MD [facility] INTERVENTIONL RAD ??? IR VERTEBROPLASTY THORACIC SINGLE LEVEL 10/25/2020 IR Vertebroplasty Thoracic Single Level 10/25/2020 Matt Chisholm MD [facility] INTERVENTIONL RAD Social Hx: Social History [...] Refill ??? fluticasone propionate (FLONASE) 50 mcg/actuation [place], Suspension as needed. ??? fluorouraciL (EFUDEX) 5 [...] and consented. Tim Chicas MD 05/15/2022 Pager: [phone] documented in this encounter ED Notes Lc Harris PA - 05/15/2022 1:20 PM EDT ED Provider Note HPI: Koko Zamora is a 81 y.o. male with history of atrial fibrillation not on anticoagulation, and GI bleeding who presents to the Emergency Department as a transfer from [facility] with left lower extremity limb ischemia. Patient says that the symptoms started roughly 630 this morning when he developed severe pain in his left lower extremity. He went to [facility] and was started on [...] src: Oral SpO2: 94 % O2 Device: [place] O2 Flow Rate (L/min): 2 L/min Physical [...] lower extremity earlier today and went to [facility] where it was determined that he had ischemia of the left lower extremity. Vascular surgery [facility] was contacted and he was [...] orders before pt. Arrival. Pt. Arrived at [facility] by EMS at 1150, [...] in an outpatient cardiac rehabilitation program at [facility] was discussed. Patient agrees to a referral to this program. Timing will depend on his recovery from Vascular surgery. He is going home w/VNA PT. I gave him the brochure for the program at [facility] for future reference. Care Management [...] information for follow-up Home Health & Hospice, [place] [address] [place] [address] Transportation: family or friend will provide Functional [...] *No Product type* / Secondary Insurance: [facility] Prescription Coverage: Yes This plan was formulated with input from patient and team. All are in agreement with plan. [facility] IMM. Shawn (Satish) DION López RN/CM - Cellphone: [phone] Pager: [phone] Covering Service RN/CM Plan of Care - [...] catheterization, transferred in hospital bed accompanied by Picker Packer RN, remains on telemetry monitoring. Heparin gtt [...] *No Product type* / Secondary Insurance: [facility] Last Physical Therapy Recommendation: home with home health, home with supervision with None Last Occupational Therapy Recommendation: with Plan for discharge is: Home w/ Services Outpatient Agency/Support Group Needs: None Home Health Services: Registered Nurse, Physical Therapy, Occupational Therapy Agency Referrals: I have met with the patient to: ?? discuss discharge planning needs. ?? provide the [facility], Office of Care Management letter from the Salesperson [employer] pertaining to rehab referrals. ?? provide a letter describing our affiliations within the [facility] and educate about their right to choose where referrals are sent. ?? provide a list of Home Health Agencies / Durable Medical Equipment vendors which serve their preferred geographic area. ?? provided patient with [facility] Star Quality Rating handout. They have requested referrals to: [facility]. [address] [place] [address] Note routed to a Water Systems Engineer who will communicate referrals to facilities and provide any required information. Transportation: family or friend will provide Barriers to discharge: None Plan going forward: Patient is going for a cardiac cath today and plan will come from there. Patientwas recently seen by PT and they recommend VNA at time of discharge. [facility] was routed and pendedat this time. Care Management will continue to follow and assist with discharge planning and coordination of care as indicated. Anticipated Date of Discharge: 05/21/2022 Nataly RICHMOND RN Phone: [phone] Pager: [phone] Plan of Care - Laney Atkins RN [...] original note were not included. [facility] [place] [address] [place] [address] INPATIENT CARDIOLOGY CONSULT NOTE Date of Consultation: 05/17/2022 Admit Date: 05/15/2022 Hospital Day 2 days Reason for Consult: New afib Active Problems: Active Hospital Problems Diagnosis Limb ischemia Resolved Hospital Problems No resolved problems to display. HPI: Koko Zamora is a 81 y.o. male with a PMHx significant for MVP (s/p MV repair 2000), tobacco use, HLD, who presented to [facility] from OSH on 05/15 with acute limb ischemia of LLE and was found to be in atrial fibrillation. Patient had sudden onset LLE pain on 05/15 and presented to [facility], where he was started on heparin and transferred to [facility]. Upon arrival to [facility], patient was in atrial [...] IR Biopsy Spine 07/20/2019 Bobby Marshall MD [facility] INTERVENTIONL RAD IR VERTEBROPLASTY LUMBAR MULTIPLE LEVELS 07/20/2019 IR Vertebroplasty Lumbar Multiple Levels 07/20/2019 Bobby Marshall MD [facility] INTERVENTIONL RAD IR VERTEBROPLASTY THORACIC SINGLE LEVEL 10/25/2020 IR Vertebroplasty Thoracic Single Level 10/25/2020 Matt Chisholm MD [facility] INTERVENTIONL RAD PRO EMBLC/THRMBC FEMORAL POPLITEAL AORTO-ILIAC ARTERY Left 05/15/2022 EMBOLECTOMY OR THROMBECTOMY, FEMOROPOPLITEAL, AORTOILIAC ARTERY BY LEG INCISION (WRVU 19.48) performed by Fito Summers MD at [facility] MA[facility] OR Allergies Allergen Reactions Aspirin Other (See Comments) GI bleed Out-Patient Medications: Medications Prior to Admission Medication Sig Dispense Refill Last Dose fluorouraciL (EFUDEX) 5 % Cream daily. CRESTOR 40 mg Tablet Take 40 mg by mouth daily. fluticasone propionate (FLONASE) 50 mcg/actuation [place], Suspension as needed. ascorbic acid, vitamin C, [...] 5 mL Intravenous BID PHENobarbitaL 0.24 mg/kg/dose ([place]) Oral BID Followed by [START ON 05/18/2022] PHENobarbitaL 0.12 mg/kg/dose ([place]) Oral BID thiamine 100 mg Oral Daily folic acid 1,000 mcg Oral Daily multivitamin with minerals 1 tablet Oral Daily heparin (porcine) infusion 1,200 Units/hr (05/17/22 9578) Family History: No family history on file. [...] to Hosp-Admission (Current) from 05/15/2022 in 3 [facility] Office Visit from 04/17/2021 in Pain and Spine Center at [facility] Weight 79.8 kg (175 [...] continue to follow Anne-Marie Larson MD Pager [phone] Clinic: [phone] 05/17/22 6:22 PM Initial Assessments - Ifrah [...] spouse would be surrogate decision maker per [place] surrogate decision making law. (Only good for 180 days) Any patient receiving care at [facility] must abide by [place] law. The hierarchy [...] (i) The agent with financial power of mannequin wig maker or a conservator appointed in accordance [...] raised toilet seat Home Address confirmed as: [address] [place] [address] Social & Family Supports: All names listed below confirmed with patient as Incorrect. Will notify toni to correct. Wifes address is same as and phone is [phone]. Extended Emergency Contact Information Primary Emergency Contact: Ursula Zamora Address: [address] [place] [address] [address] [place] [address] [facility] Relation: Spouse Current Care Provided by: [...] *No Product type* / Secondary Insurance: [facility] Prescription Coverage: Yes Preferred Pharmacy: [id number] - [place], [place] - [address] [facility] [address] [facility] [address] [id number] - [place], [place] - [address] [facility] [address] [facility] [address] [place] Status: Patient is a : unable to assess Primary Care Provider: Bobby Das MD [phone] Patient/Caregiver Goals of Treatment: to walk again Potential Needs for Transition of Care: none noted per 05/16 IDR Transportation: family will provide Transportation Anticipated: family or friend will provide Concerns to be Addressed: no discharge needs identified Assessment: Patient is admitted to vascular surg service for left lower extremity limb ischemia Plan: Per PT OT recommendations . Has used [facility] in the past. A member of the Care Management team will continue to monitor progress, follow for continuity of care and assist with transition of care planning. Ifrah Bell RN BSN Oven BakerWet Machine Tender of Care Management Pager [phone] Brief Op Note - Erin Garza MD - 05/15/2022 5:04 PM EDT Brief Operative Note Patient Name: Koko Zamora : [id number] MR#: [id number] Case Date: 05/15/2022 Surgeon: Surgeon(s) and Role: [...] Garza MD - 05/15/2022 2:08 PM EDT [facility] Operative Note Patient Name: Koko Zamora : [id number] MR#: [id number] Case Date: 05/15/2022 Surgeon: Surgeon(s) and Role: [...] MD [facility] GASTROENTEROLOGY DEPT [place], [place] [address] (Wo rk) 09/05/2022 Appointment Cardiology Trinity Reid MD [facility] CARDIOLOGY [place], [place] [address] (Wo rk) 09/05/2022 Office Visit Cardiology Trinity Reid MD [facility] CARDIOLOGY [place], [place] [address] (Wo rk) Scheduled Referrals Name [...] Component Value Ref Test Analysis Performed At [facility] Range Method Time Signature VB Text Department: Vascular Surgery Lab VASCUBASE Report Patient: [id number] (KOKO ZAMORA) CPT: 25615 Referring Physician: FITO SUMMERS ?? Phone: Indications: s/p L APPRAISAL ANALYST endart. Diabetes mellitus: no Findings: Right ?Pressure [...] P athologist Signature Heparin UFH 0.42 IU/mL [facility] LABORATORY Comment: Heparin (anti-Xa) levels should [...] Organization Address City/State/[place] [address] Differential, Automated (05/21/2022 6:15 AM EDT) P athologist Signature Neutrophils % 58.8 % [facility] LABORATORY Neutr Abs (ANC) 3.97 1.70 - [facility] 6.10 [facility] x10(3)/[facility] LABORATORY Lymphocytes % 25.2 % [facility] LABORATORY Lymphocytes Abs 1.7 0.9 - 3.2 [facility] x10(3)/[facility] LABORATORY Monocytes % 12.9 % [facility] LABORATORY Monocyte Abs 0.9 0.3 - 0.9 [facility] x10(3)/[facility] LABORATORY Eosinophils % 2.1 % [facility] LABORATORY Eosinophils Abs 0.1 0.0 - 0.4 [facility] x10(3)/[facility] LABORATORY Basophils % 0.4 % [facility] LABORATORY Basophils Abs 0.0 0.0 - 0.1 [facility] x10(3)[facility] LABORATORY Immature Gran % 0.60 % BARRE [...] Gran Abs 0.04 0.00 - 0.04 x10(3)/[facility] LABORATORY Specimen Anatomical Collection Method Collection Time Receive d Time (Source) Location / / Volume Laterality Blood 05/21/2022 6:15 AM 2 6:38 EDT AM EDT Resulting Agency Comment Spec In Lab Edward Rodríguez MD HEMATOLOGY ORDERABLES Performing Organization Address City/State/[place] [address] (ABNORMAL) Hemogram (05/21/2022 6:15 AM EDT) [facility] gist Method Time Signature WBC 6.8 4.0 - 9.5 [facility] x10(3)/[facility] LABORATORY RBC 3.59 (L) 4.58 - [facility]54 [facility] x10(6)/[facility] LABORATORY Hemoglobin 11.8 (L) 13.7 - [facility] 16.5 g/dL [facility] LABORATORY Hematocrit 34.5 (L) 40.5 - [facility] 48.5 % [facility] LABORATORY MCV 96.1 (H) 82.9 - [facility] 93.1 [facility] LABORATORY MCH 32.9 (H) 27.5 - [facility] 32.1 pg [facility] LABORATORY MCHC 34.2 32.0 - [facility] 35.7 g/dL [facility] LABORATORY Platelets 198 145 - 357 [facility] x10(3)/[facility] LABORATORY RDWSD 44.9 36.0 - [facility] 45.0 [facility] LABORATORY RDWCV 12.6 11.4 - [facility] HOSPITALCOCK 13.8 % [facility] MPV 10.0 7.6 - 12.9 [facility] LABORATORY nRBC % Auto 0.3 % [facility] LABOR[facility] nRBC Abs Auto 0.020 (H) 0.000 - [facility] 0.000 [facility] x10(3)/[facility] LABORATORY Specimen Anatomical Collection Method Collection Time Receive d Time (Source) Location / / Volume Laterality Blood 05/21/2022 6:15 AM 2 6:38 EDT AM EDT Resulting Agency Comment Spec In Lab Edward Rodríguez MD HEMATOLOGY ORDERABLES Performing Organization Address City/State/[place] [address] EKG 12 Lead (05/20/2022 7:04 PM EDT) Component Value Ref Range Test Analysis Performed Pathologis t Method Time At Signature Ventricular rate 101 BPM MUSE SYSTEM QRS Duration 116 ms MUSE SYSTEM Q-T Interval 378 ms MUSE SYSTEM QTC Calculated 490 ms MUSE SYSTEM (Bezet) Calculated R [place] -53 degrees MUSE SYSTEM Calculated T [place] 101 degrees MUSE SYSTEM INTERPRETATION Atrial fibrillation [...] ? Procedure Date: 05/20/2022 ? A #: [id number] ? Primary Physician: Abundio Servin ? Case #: [id number] ? File Name: [id number] ? Catheterization Order Number: [id number] ? [facility] ? Final Report [place], [place] ? Patient Name: ? Koko J. Klarissa uson ? ID#: ?[id number] ? : ?1940 ? Procedure Date: ? [...] procedure was Urgent. The indication for ?the greens laborer visit is cardiomyo nita. Chest pain [...] ?3.5 guiding catheter and a 3.5 Fr [facility] ??20 Mhz. ??Imaging ?was successful. [...] premounted 2. 75 x 30 mm Rudy Waucoma (AMPARO) was deployed ? with a maximum [...] may require ?modification of this regimen. [facility] Interventional Cardiology for ?questions. [...] Koko Zamora Procedure Date: 05/20/2022 A #: [id number] Primary Physician: Abundio Servin Case #: File Name: [id number] Catheterization Order Number: [id number] [facility] Final Report [place], [place] Patient Name: Koko Zamora ID#: [id number] : 1940 Procedure Date: May 20, 2022 [...] designated a s ASA Class IV. The [facility] clinical frailty scale is 3: Managing [...] e was Urgent. The indication for the greens laborer visit is cardiomyopathy. C hest pain [...] 3.5 guiding catheter and a 3.5 Fr [facility] [place] [facility] 20 Mhz. Imaging was successful. Image [...] atmospheres. A premounted 2.75 x 30 mm Ellinger Waucoma (AMPARO) was deployed with a maximum inflation [...] require modification of this regimen. Consult D [facility] [...] Signature POC Glucose 123 65 - 199 [facility]dL [facility] Comment: Supplemental ranges: <140 mg/dL before meals <180 mg/dL all other times of the day Specimen Anatomical Collection Method Collection Time Receive d Time (Source) Location / / Volume Laterality Blood 05/20/2022 5:42 PM 2 5:42 EDT PM EDT Fito Summers MD POINT OF CARE TEST ORDERABLE S Performing Organization Address City/State/ZIP [place] [address] (ABNORMAL) BMP w/fasting Glucose (05/20/2022 10:50 AM EDT) athologist Signature Glucose 152 (H) 65 - 99 [facility] Fasting mg/dL [facility] Comment: [...] of Diabetes Mellitus, Position Statement from the [employer]. ??Diabete s Care, Volume 33, [...] Organization Address City/State/[place] [address] Heparin (unfractionated) Level (05/20/2022 5:02 AM EDT) P athologist Signature Heparin UFH 0.57 IU/mL [facility] LABORATORY Comment: Heparin (anti-Xa) levels should [...] Organization Address City/State/ZIP [place] [address] (ABNORMAL) Differential, Automated (05/20/2022 5:02 AM EDT) Patholo gist Method Time Signature Neutrophils % 58.1 % [facility] Neutr Abs (ANC) 4.52 1.70 - [facility] 6.10 [facility] x10(3)/[facility] LABORATORY Lymphocytes % 24.1 % [facility] Lymphocytes Abs 1.9 0.9 - 3.2 [facility] x10(3)/[facility] LABORATORY Monocytes % 13.8 % [facility] Monocyte Abs 1.1 (H) 0.3 - 0.9 [facility] x10(3)/[facility] LABORATORY Eosinophils % 2.6 % [facility] Eosinophils Abs 0.2 0.0 - 0.4 [facility] x10(3)/[facility] LABORATORY Basophils % 0.8 % [facility] Basophils Abs 0.1 0.0 - 0.1 [facility] x10(3)/[facility] LABORATORY Immature Gran % 0.60 % [...] Gran Abs 0.05 (H) 0.00 - 0.04 x10(3)/[facility] LABORATORY Specimen Anatomical Collection Method Collection Time Receive d Time (Source) Location / / Volume Laterality Blood 05/20/2022 5:02 AM 5:19 EDT AM EDT Resulting Agency Comment Spec In Lab Edward Rodríguez MD HEMATOLOGY ORDERABLES Performing Organization Address City/State/[place] [address] (ABNORMAL) Hemogram (05/20/2022 5:02 AM EDT) Analysis Performed At Patho logist Time Signature WBC 7.8 4.0 - 9.5 [facility] x10(3)/[facility] LABORATORY RBC 3.53 (L) 4.58 - [facility] 5.54 [facility] x10(6)/[facility] LABORATORY Hemoglobin 11.4 (L) 13.7 - [facility] g/dL [facility] Hematocrit 34.3 (L) 40.5 - [facility] 48.5 % [facility] MCV 97.2 (H) 82.9 - [facility] 93.1 fL [facility] MCH 32.3 (H) 27.5 - [facility] 32.1 pg [facility] MCHC 33.2 32.0 - [facility] 35.7 g/dL [facility] Platelets 181 145 - 357 [facility] x10(3)/[facility] LABORATORY RDWSD 46.4 (H) 36.0 - [facility] 45.0 [facility] LABORATORY RDWCV 13.0 11.4 - [facility] 13.8 % [facility] MPV 10.4 7.6 - 12.9 [facility] LABORATORY nRBC % Auto 0.0 % [facility] nRBC Abs Auto 0.000 0.000 - [facility] 0.000 [facility] x10(3)/[facility] LABORATORY Specimen Anatomical Collection Method Collection Time Receive d Time (Source) Location / / Volume Laterality Blood 05/20/2022 5:02 AM 2 5:19 EDT AM EDT Resulting Agency Comment Spec In Lab Edward Rodríguez MD HEMATOLOGY ORDERABLES Performing Organization Address City/State/ZIP [place] [address] Heparin (unfractionated) Level (05/19/2022 3:26 AM EDT) athologist Signature Heparin UFH 0.59 IU/mL [facility] LABORATORY Comment: Heparin (anti-Xa) levels should [...] Organization Address City/State/ZIP [place] [address] (ABNORMAL) Differential, Automated (05/19/2022 3:26 AM EDT) Patholo gist Method Time Signature Neutrophils % 62.1 % [facility] Neutr Abs (ANC) 4.59 1.70 - [facility] 6.10 [facility] x10(3)/[facility] LABORATORY Lymphocytes % 22.1 % [facility] Lymphocytes Abs 1.6 0.9 - 3.2 [facility] x10(3)/[facility] LABORATORY Monocytes % 13.5 % [facility] Monocyte Abs 1.0 (H) 0.3 - 0.9 [facility] x10(3)/[facility] LABORATORY Eosinophils % 1.3 % [facility] Eosinophils Abs 0.1 0.0 - 0.4 [facility] x10(3)/[facility] LABORATORY Basophils % 0.5 % [facility] Basophils Abs 0.0 0.0 - 0.1 [facility] x10(3)/[facility] LABORATORY Immature Gran % 0.50 % [facility] [...] Gran Abs 0.04 0.00 - 0.04 x10(3)/[facility] LABORATORY Specimen Anatomical Collection Method Collection Time Receive d Time (Source) Location / / Volume Laterality Blood 05/19/2022 3:26 AM 3:59 EDT AM EDT Resulting Agency Comment Spec In Lab Edward Rodríguez MD HEMATOLOGY ORDERABLES Performing Organization Address City/State/[place] [address] (ABNORMAL) Hemogram (05/19/2022 3:26 AM EDT) Analysis Performed At Path logist Time Signature WBC 7.4 4.0 - 9.5 [facility] x10(3)/[facility] LABORATORY RBC 3.74 (L) 4.58 - [facility] 5.54 [facility] x10(6)/[facility] LABORATORY Hemoglobin 12.1 (L) 13.7 - [facility] 16.5 g/dL [facility] Hematocrit 36.4 (L) 40.5 - [facility] 48.5 % [facility] MCV 97.3 (H) 82.9 - [facility] 93.1 [facility] LABORATORY MCH 32.4 (H) 27.5 - [facility] 32.1 pg [facility] MCHC 33.2 32.0 - [facility] 35.7 g/dL [facility] Platelets 168 145 - 357 [facility] x10(3)/[facility] LABORATORY RDWSD 46.9 (H) 36.0 - [facility] 45.0 [facility] LABORATORY RDWCV 13.0 11.4 - [facility] 13.8 % [facility] MPV 10.5 7.6 - 12.9 [facility] nRBC % Auto 0.0 % [facility] nRBC Abs Auto 0.000 0.000 - [facility] 0.000 [facility] x10(3)/[facility] LABORATORY Specimen Anatomical Collection Method Collection Time Receive d Time (Source) Location / / Volume Laterality Blood 05/19/2022 3:26 AM 3:59 EDT AM EDT Resulting Agency Comment Spec In Lab Edward Rodríguez MD HEMATOLOGY ORDERABLES Performing Organization Address City/State/[place] [address] TSH (05/18/2022 8:00 PM EDT) P athologist Signature TSH 2.27 0.27 - 4.20 [facility] mcIU/mL [facility] Comment: Reference Interval (mcIU/mL): Females: ??First Trimester: 0.23-3.88 ??Second Trimester: 0.22-3.90 ??Third Trimester: 0.44-4.66 Specimen Anatomical Collection Method Collection Time Receive d Time (Source) Location / / Volume Laterality Blood 05/18/2022 8:00 PM 2 8:06 EDT PM EDT Resulting Agency Comment Spec In Lab Fito Summers MD CHEMISTRY ORDERABLES Performing Organization Address City/State/ZIP Code Phon e Number [facility] [place] [address] (ABNORMAL) Differential, Automated (05/18/2022 3:34 AM EDT) [facility] gist Method Time Signature Neutrophils % 67.2 % [facility] Neutr Abs (ANC) 5.89 1.70 - [facility] 6.10 [facility] x10(3)/[facility] LABORATORY Lymphocytes % 17.1 % [facility] Lymphocytes Abs 1.5 0.9 - 3.2 [facility] x10(3)/[facility] LABORATORY Monocytes % 13.6 % [facility] Monocyte Abs 1.2 (H) 0.3 - 0.9 [facility] x10(3)/[facility] LABORATORY Eosinophils % 1.0 % [facility] Eosinophils Abs 0.1 0.0 - 0.4 [facility] x10(3)/[facility] LABORATORY Basophils % 0.6 % [facility] Basophils Abs 0.0 0.0 - 0.1 [facility] x10(3)/[facility] LABORATORY Immature Gran % 0.50 % [facility] [...] Gran Abs 0.04 0.00 - 0.04 x10(3)/[facility] LABORATORY Specimen Anatomical Collection Method Collection Time Receive d Time (Source) Location / / Volume Laterality Blood 05/18/2022 3:34 AM 2 3:48 EDT AM EDT Resulting Agency Comment Spec In Lab Edward N Facciponte MD HEMATOLOGY ORDERABLES Performing Organization Address City/[facility]/[place] [address] (ABNORMAL) Hemogram (05/18/2022 3:34 AM EDT) Analysis Performed At Patho logist Time Signature WBC 8.8 4.0 - 9.5 [facility] x[facility](3[facility] LABORATORY RBC 3.45 (L) 4.58 - [facility] 5.54 [facility] x10(6)/[facility] LABORATORY Hemoglobin 11.2 (L) 13.7 - [facility] 16.5 g/dL [facility] Hematocrit 33.0 (L) 40.5 - [facility] 48.5 % [facility] MCV 95.7 (H) 82.9 - [facility] 93.1 [facility] LABORATORY MCH 32.5 (H) 27.5 - [facility] 32.1 pg [facility] MCHC 33.9 32.0 - [facility] 35.7 g/dL [facility] Platelets 130 (L) 145 - 357 [facility] x10(3)/[facility] LABORATORY RDWSD 46.2 (H) 36.0 - [facility] 45.0 [facility] LABORATORY RDWCV 13.2 11.4 - [facility] 13.8 % [facility] MPV 10.8 7.6 - 12.9 [facility] LABORATORY nRBC % Auto 0.0 % [facility] LABORATORY nRBC Abs Auto 0.000 0.000 - [facility] 0.000 [facility] x10(3)/[facility] LABORATORY Specimen Anatomical Collection Method Collection Time Receive d Time (Source) Location / / Volume Laterality Blood 05/18/2022 3:34 AM 3:48 EDT AM EDT Resulting Agency Comment Spec In Lab Edward Rodríguez MD HEMATOLOGY ORDERABLES Performing Organization Address City/[facility]/[place] [address] Heparin (unfractionated) Level (05/18/2022 3:34 AM EDT) athologist Signature Heparin UFH 0.59 IU/mL [facility] LABORATORY Comment: Heparin (anti-Xa) levels should [...] Address City/State/ZIP Code Phon e Number [address] Magnesium (05/17/2022 3:33 AM EDT) athologist Signature Magnesium 0.76 0.69 - 1.07 [facility] mmol/L [facility] Specimen Anatomical Collection Method Collection Time Receive d Time (Source) Location / / Volume Laterality Blood Venous Draw / 05/17/2022 3:33 AM 05/17/20 4:05 Unknown EDT AM EDT Resulting Agency Comment Spec In Lab Dottie Hill APRN CHEMISTRY ORDERABLES Performing Organization Address City/State/ZIP Code Phon e Number [address] (ABNORMAL) Basic Metabolic Panel (non-fasting) (05/17/2022 3:33 AM EDT) athologist Signature Glucose Lvl 158 65 - 199 [facility] mg/dL [facility] Comment: [...] Organization Address City/State/[place] [address] (ABNORMAL) Differential, Automated (05/17/2022 3:33 AM EDT) Patholo gist Method Time Signature Neutrophils % 65.5 % [facility] LABOR[facility]ORY Neutr Abs (ANC) 6.84 (H) 1.70 - [facility] 6.10 [facility] x10(3)/[facility] LABORATORY Lymphocytes % 19.7 % [facility] LABORATORY Lymphocytes Abs 2.1 0.9 - 3.2 [facility] x10(3)/[facility] LABORATORY Monocytes % 13.1 % [facility] LABORATORY Monocyte Abs 1.4 (H) 0.3 - 0.9 [facility] x10(3)/[facility] LABORATORY Eosinophils % 0.6 % [facility] LABORATORY Eosinophils Abs 0.1 0.0 - 0.4 [facility] x10(3)/[facility] LABORATORY Basophils % 0.6 % [facility] LABOR[facility]ORY Basophils Abs 0.1 0.0 - 0.1 [facility] x10(3)/[facility] LABORATORY Immature Gran % [...] Gran Abs 0.05 (H) 0.00 - 0.04 x10(3)/[facility] LABORATORY Specimen Anatomical Collection Method Collection Time Receive d Time (Source) Location / / Volume Laterality Blood 05/17/2022 3:33 AM 2 3:53 EDT AM EDT Resulting Agency Comment Spec In Lab Edward Rodríguez MD HEMATOLOGY ORDERABLES Performing Organization Address City/State/[place] [address] (ABNORMAL) Hemogram (05/17/2022 3:33 AM EDT) Analysis Performed At [facility] logist Time Signature WBC 10.4 (H) 4.0 - 9.5 [facility] x10(3)/[facility] LABORATORY RBC 3.72 (L) 4.58 - [facility] 5.54 [facility] x10(6)/[facility] LABORATORY Hemoglobin 12.0 (L) 13.7 - [facility] 16.5 g/dL [facility] Hematocrit 36.4 (L) 40.5 - [facility] 48.5 % [facility] MCV 97.8 (H) 82.9 - [facility] 93.1 [facility] LABORATORY MCH 32.3 (H) 27.5 - [facility] 32.1 pg [facility] MCHC 33.0 32.0 - [facility] 35.7 g/dL [facility] Platelets 149 145 - 357 [facility] x10(3)/[facility] LABORATORY RDWSD 48.7 (H) 36.0 - [facility] 45.0 [facility] RDWCV 13.5 11.4 - [facility] 13.8 % [facility] MPV 10.6 7.6 - 12.9 [facility] LABORATORY nRBC % Auto 0.0 % [facility] LABORATORY nRBC Abs Auto 0.000 0.000 - [facility] 0.000 [facility] x10(3)/[facility] LABORATORY Specimen Anatomical Collection Method Collection Time Receive d Time (Source) Location / / Volume Laterality Blood 05/17/2022 3:33 AM 3:53 EDT AM EDT Resulting Agency Comment Spec In Lab Edward Rodríguez MD HEMATOLOGY ORDERABLES Performing Organization Address City/State/[place] [address] (ABNORMAL) Urinalysis Microscopic Exam [...] Address City/State/ZIP Code Phon e Number [address] (ABNORMAL) Urinalysis with reflex Culture (05/16/2022 11:15 PM EDT) Patholo gist Method Time Signature Glucose UA Negative Negative [facility] mg/dL [facility] Protein UA Negative Negative [facility] mg/dL [facility] Bilirubin UA Negative Negative [facility] mg/dL [facility] Comment: Clinical [...] [facility] Nitrite UA Negative Negative [facility] LABORATORY Leukocytes UA Negative Negative [facility] LABORATORY Appearance UA Clear Clear [facility] LABORATORY Spec [place] UA 1.021 1.005 - 1.030 [facility] LABORATORY Color UA Yellow Yellow [facility] LABORATORY Culture Reflexed No [facility] LABORATORY Specimen Anatomical Collection Method Collection Time Receive d Time (Source) Location / / Volume Laterality Clean Catch 05/16/2022 11:15 05/16/2022 Urine PM EDT 11:30 PM EDT Resulting Agency Comment Spec In Lab Fito Summers MD URINE ORDERABLES Performing Organization Address City/[facility]/ZIP [place] [address] Heparin (unfractionated) Level (05/16/2022 [...] Organization Address City/State/[place] [address] XR Chest One View [...] questions please contact the health career services manager that requested your imaging first. ? Electronically signed by: Tiffanie George MD , [facility] ([phone]), at 05/16/2022 9:27 PM Narrative 05/16/2022 9:27 [...] questions please contact the health career services manager that requested your imaging first. Electronically signed by: Tiffanie George MD , [facility] ([phone]), at 05/16/2022 9:27 PM Fito Summers MD IMG DX ORDERABLES EKG 12 Lead (05/16/2022 8:57 PM EDT) Component Value Ref Range Test Analysis Performed Pathologis t Method Time At Signature Ventricular rate 117 BPM MUSE SYSTEM QRS Duration 112 ms MUSE SYSTEM Q-T Interval 346 ms MUSE SYSTEM QTC Calculated 482 ms MUSE SYSTEM (Bezet) Calculated R [place] -48 degrees MUSE SYSTEM Calculated T [place] 111 degrees MUSE SYSTEM INTERPRETATION Atrial fibrillation [...] athologist Signature Heparin UFH 0.53 IU/mL [facility] LABORATORY Comment: Heparin (anti-Xa) levels should [...] Organization Address City/State/[place] [address] ECHOCARDIOGRAM COMPLETE W CONTRAST (05/16/2022 12:49 PM EDT) athologist Signature EF 28 [facility] SYSTEM Anatomical Region Laterality Modality Cardiac Other Specimen (Source) Anatomical Collection Method Collection Time Re ceived Time Location / / Volume Laterality 05/16/2022 11:22 AM EDT Narrative 05/16/2022 1:54 PM EDT [facility] ?[address] ? [place] [address] ?Voice: ?Fax: ? Echocardiogram Report Name: KOKO ZAMORA ?Study Date: 05/16/2022 11:22 AM ? Patient Location: 3T 0303 B : 1940 ? Height: 67.5 in ? Account: [id number] Age: 81 yrs ? Weight: 176 lb Gender: Male ?BSA: 1.9 m2 Ordering Physician: FITO SUMMERS Referring Physician: MALI FLORIAN Performed By: Jolene Bernard RDCS Exam Location: [facility]. Interpretation Summary Left ventricle is mildly [...] and LV systolic dysfunction are new. Procedure [id number]. Image enhancement Optiso n was used for [...] might be different from the original. [facility] [address] [place] [address] Voice: Fax: Echocardiogram Report Name: KOKO ZAMORA Study Date: 05/2022 11:22 AM Patient Location: [address] [place] [address] : 1940 Height: 67.5 in Account: [id number] Age: 81 yrs Weight: 176 lb Gender: Male BSA: 1.9 m2 Ordering Physician: FITO SUMMERS Referring Physician: MALI FLORIAN Performed By: Jolene Bernard RDCS Exam Location: [facility]. Interpretation Summary Left ventricle is mildly [...] and LV systolic dysfunction are new. Procedure Complete-[id number]. Image enhancement Optiso n was used for [...] (ABNORMAL) Differential, Automated (05/16/2022 3:01 AM EDT) [facility] Method Time Signature Neutrophils % 78.8 % [facility] LABORATORY Neutr Abs (ANC) 9.11 (H) 1.70 - [facility] 6.10 [facility] x10(3)/[facility] LABORATORY Lymphocytes % 9.4 % [facility] LABORATORY Lymphocytes Abs 1.1 0.9 - 3.2 [facility] x[facility](3)/[facility] LABORATORY Monocytes % 10.9 % [facility] LABORATORY Monocyte Abs 1.3 (H) 0.3 - 0.9 [facility] x10(3)/[facility] LABORATORY Eosinophils % 0.0 % [facility] LABORATORY Eosinophils Abs 0.0 0.0 - 0.4 [facility] x10(3)/[facility] LABORATORY Basophils % 0.3 % [facility] LABORATORY Basophils Abs 0.0 0.0 - 0.1 [facility] x10(3)/[facility] LABORATORY Immature Gran % [...] Gran Abs 0.07 (H) 0.00 - 0.04 x10(3)/[facility] LABORATORY Specimen Anatomical Collection Method Collection Time Receive d Time (Source) Location / / Volume Laterality Blood 05/16/2022 3:01 AM 3:36 EDT AM EDT Resulting Agency Comment Spec In Lab Erin Garza MD HEMATOLOGY ORDERABLES Performing Organization Address City/State/[place] [address] (ABNORMAL) Hemogram (05/16/2022 3:01 AM EDT) Analysis Performed At Patho logist Time Signature WBC 11.6 (H) 4.0 - 9.5 [facility] x10(3)/[facility] LABORATORY RBC 3.62 (L) 4.58 - [facility] 5.54 [facility] x10(6)/[facility] LABORATORY Hemoglobin 12.0 (L) 13.7 - [facility] 16.5 g/dL [facility] Hematocrit 35.3 (L) 40.5 - [facility] 48.5 % [facility] MCV 97.5 (H) 82.9 - [facility] 93.1 fL [facility] MCH 33.1 (H) 27.5 - [facility] 32.1 pg [facility] MCHC 34.0 32.0 - [facility] 35.7 g/dL [facility] Platelets 151 145 - 357 [facility] x10(3)/[facility] LABORATORY RDWSD 47.6 (H) 36.0 - IF[facility] FAYE 45.0 [facility] LABORATORY RDWCV 13.3 11.4 - [facility] 13.8 % [facility] MPV 10.5 7.6 - 12.9 [facility] LABORATORY nRBC % Auto 0.0 % [facility] nRBC Abs Auto 0.000 0.000 - [facility] 0.000 [facility] x10(3)/[facility] LABORATORY Specimen Anatomical Collection Method Collection Time Receive d Time (Source) Location / / Volume Laterality Blood 05/16/2022 3:01 AM 2 3:36 EDT AM EDT Resulting Agency Comment Spec In Lab Erin Garza MD HEMATOLOGY ORDERABLES Performing Organization Address City/[facility]/ZIP [place] [address] Phosphorus (05/16/2022 3:01 AM EDT) athologist Signature Phosphorus 3.7 2.5 - 4.5 [facility] mg/dL [facility] Specimen Anatomical Collection Method Collection Time Receive d Time (Source) Location / / Volume Laterality Blood 05/16/2022 3:01 AM 2 3:36 EDT AM EDT Resulting Agency Comment Spec In Lab Fito Summers MD CHEMISTRY ORDERABLES Performing Organization Address City/[facility]/ZIP Code Phon e Number [address] Magnesium (05/16/2022 3:01 AM EDT) P athologist Signature Magnesium 0.77 0.69 - 1.07 [facility] mmol/L [facility] Specimen Anatomical Collection Method Collection Time Receive d Time (Source) Location / / Volume Laterality Blood 05/16/2022 3:01 AM 2 3:36 EDT AM EDT Resulting Agency Comment Spec In Lab Fito Summers MD CHEMISTRY ORDERABLES Performing Organization Address City/[facility]/ZIP [place] [address] (ABNORMAL) Basic Metabolic Panel (non-fasting) (05/16/2022 3:01 AM EDT) P athologist Signature Glucose Lvl 222 (H) 65 - 199 [facility] mg/dL [facility] Comment: [...] Organization Address City/State/[place] [address] (ABNORMAL) BLOOD GAS 2 ARTERIAL (05/15/2022 3:33 PM EDT) Analysis Performed At Patho logist Time Signature pH Art 7.33 (L) 7.35 - [facility] 7.45 [facility] pCO2 Art 41 35 - 45 [facility] LABORATORY pO2 Art 131 (H) 85 - 104 [facility]ORATORY HCO3 Art 21.1 20.0 - [facility] 26.0 [facility] mmol/L [facility] BE Art -4.8 (L) -3.0 - 3.0 [facility] mmol/L [facility] Hgb Blood Gas 13.4 (L) 13.7 - [facility] 16.5 g/dL [facility] O2HB Art 96.9 94.0 - [facility] 97.0 % [facility] COHB Art 1.4 % [facility] [...] Whole Bld 136 65 - 199 mg/dL [facility] Comment: Diabetes: >=200 mg/dL plus symp toms. Lactate WB 2.0 0.5 - 2.2 mmol/L [facility] Specimen Anatomical Collection Method Collection Time Receive d Time (Source) Location / / Volume Laterality Blood 05/15/2022 3:33 PM 2 3:[address] Jamel Torre MD CHEMISTRY ORDERABLES Performing Organization Address City/State/[place] [address] (ABNORMAL) BLOOD GAS 2 ARTERIAL (05/15/2022 2:06 PM EDT) Analysis Performed At Patho logist Time Signature pH Art 7.39 7.35 - [facility] 7.45 [facility] pCO2 Art 35 35 - 45 [facility] mmHg [facility] pO2 Art 135 (H) 85 - 104 [facility] LABORATORY HCO3 Art 20.8 20.0 - [facility] 26.0 [facility] mmol/[facility] BE Art -4.2 (L) -3.0 - 3.0 [facility] mmol/L [facility] Hgb Blood Gas 14.5 13.7 - [facility] 16.5 g/dL [facility] O2HB Art 97.2 (H) 94.0 - [facility] 97.0 % [facility] COHB Art 1.2 % BAR[facility] [...] Whole Bld 152 65 - 199 mg/dL [facility] Comment: Diabetes: >=200 mg/dL plus symp toms. Lactate WB 1.5 0.5 - 2.2 mmol/L [facility] Specimen Anatomical Collection Method Collection Time Receive d Time (Source) Location / / Volume Laterality Blood 05/15/2022 2:06 PM 2 2:[address] Jamel Torre MD CHEMISTRY ORDERABLES Performing Organization Address City/[facility]/ZIP Code Phon e Number [place] [phone] HOSP[address] LAB[address]ORY Drive (ABNORMAL) Prothrombin Time (05/15/2022 12:30 PM EDT) P athologist Signature PT 12.9 (H) 9.4 - 12.5 [facility] LABORATORY INR 1.1 [facility] [...] Morales DO HEMATOLOGY ORDERABLES Performing Organization Address City/[facility]/[place] [address] (ABNORMAL) APTT (05/15/2022 12:30 [...] Jhonny Morales HEMATOLOGY ORDERABLES Performing Organization Address City/[facility]/ZIP [place] [address] Gold Tube HOLD (05/15/2022 12:20 PM EDT) P athologist Signature Gold Hold Sample in [facility]. [facility] Specimen Anatomical Collection Method Collection Time Receive d Time (Source) Location / / Volume Laterality Blood No Charge / 05/15/2022 12:20 05/15/2022 Unknown PM EDT 12:20 PM EDT Lc TRIPP CHEMISTRY ORDERABLES Performing Organization Address City/[facility]/ZIP [place] [address] Type and Screen Validity (05/15/2022 12:00 PM EDT) [facility] [employer] Method Time Signature T&S only valid [facility] LABORATORY Comment: This Type and Screen result is only valid at the [facility] Specimen Anatomical Collection Method Collection Time Receive d Time (Source) Location / / Volume Laterality Blood 05/15/2022 12:00 05/15/2022 PM EDT 12:17 PM EDT Resulting Agency Comment Spec In Lab Lc TRIPP BLOOD BANK ORDERABLES Performing Organization Address City/[facility]/ZIP Code Phon e Number [address] ABORH Recheck Status (05/15/2022 12:00 PM EDT) [facility] [employer] Method Time Signature ABORH Recheck Order Placed [facility] LABORATORY ABORH Type Complete [facility] LABORATORY Specimen Anatomical Collection Method Collection Time Receive d Time (Source) Location / / Volume Laterality Blood 05/15/2022 12:00 05/15/2022 PM EDT 12:17 PM EDT Resulting Agency Comment Spec In Lab Lc TRIPP BLOOD BANK ORDERABLES Performing Organization Address City/State/[place] [address] CK (05/15/2022 12:00 PM EDT) P athologist Signature CK, Total 87 0 - 200 [facility] unit/L [facility] Specimen Anatomical Collection Method Collection Time Receive d Time (Source) Location / / Volume Laterality Blood Venous Draw / 05/15/2022 12:00 05/15/2022 Unknown PM EDT 12:19 PM EDT Resulting Agency Comment Spec In Lab Fito Summers MD CHEMISTRY ORDERABLES Performing Organization Address City/[facility]/ZIP [place] [address] Antibody screen (05/15/2022 12:00 PM EDT) [facility] Method Time Signature Ab Screen Negative [facility] LABORATORY Expires at 05/18/2022 [facility] [id number] on: [facility] Specimen Anatomical Collection Method Collection Time Receive d Time (Source) Location / / Volume Laterality Blood 05/15/2022 12:00 05/15/2022 PM EDT 12:17 PM EDT Resulting Agency Comment Spec In Lab Lc Dominick Kimberly TRIPP BLOOD BANK ORDERABLES Performing Organization Address City/[facility]/ZIP [place] [address] ABO/Rh Typing (05/15/2022 12:00 PM EDT) P athologist Signature ABORh Type O Pos [facility] Specimen Anatomical Collection Method Collection Time Receive d Time (Source) Location / / Volume Laterality Blood 05/15/2022 12:00 05/15/2022 PM EDT 12:17 PM EDT Resulting Agency Comment Spec In Lab Lc Dominick Kimberly TRIPP BLOOD BANK ORDERABLES Performing Organization Address City/[facility]/ZIP [place] [address] (ABNORMAL) Differential, Automated (05/15/2022 12:00 PM EDT) [facility] Time Signature Neutrophils % 79.4 % [facility] Neutr Abs (ANC) 7.49 (H) 1.70 - [facility] 6.10 [facility] x10(3)/[facility] LABORATORY Lymphocytes % 11.3 % [facility] Lymphocytes Abs 1.1 0.9 - 3.2 [facility] x10(3)/[facility] LABORATORY Monocytes % 7.8 % [facility] Monocyte Abs 0.7 0.3 - 0.9 [facility] x10(3)/[facility] LABORATORY Eosinophils % 0.6 % [facility] Eosinophils Abs 0.1 0.0 - 0.4 [facility] x10(3)/[facility] LABORATORY Basophils % 0.6 % [facility] Basophils Abs 0.1 0.0 - 0.1 [facility] x10(3)/[facility] LABORATORY Immature Gran % 0.30 % [...] Gran Abs 0.03 0.00 - 0.04 x10(3)/[facility] LABOR[facility]ORY Specimen Anatomical Collection Method Collection Time Receive d Time (Source) Location / / Volume Laterality Blood 05/15/2022 12:00 05/15/2022 PM EDT 12:19 PM EDT Resulting Agency Comment Spec In Lab Lc TRIPP HEMATOLOGY ORDERABLES Performing Organization Address City/State/[place] [address] (ABNORMAL) Hemogram (05/15/2022 12:00 PM EDT) Analysis Performed At [facility] logist Time Signature WBC 9.4 4.0 - 9.5 [facility] x10(3)/[facility] LABORATORY RBC 4.48 (L) 4.58 - [facility] F[facility] 5.54 [facility] x10(6)/[facility] LABORATORY Hemoglobin 14.5 13.7 - [facility] 16.5 g/dL [facility] Hematocrit 42.4 40.5 - [facility] 48.5 % [facility] MCV 94.6 (H) 82.9 - [facility] 93.1 [facility] LABORATORY MCH 32.4 (H) 27.5 - [facility] 32.1 pg [facility] MCHC 34.2 32.0 - [facility] 35.7 g/dL [facility] Platelets 209 145 - 357 [facility] x10(3)/[facility] LABORATORY RDWSD 45.9 (H) 36.0 - [facility] 45.0 [facility] LABORATORY RDWCV 13.1 11.4 - [facility] 13.8 % [facility] MPV 10.5 7.6 - 12.9 [facility] LABORATORY nRBC % Auto 0.0 % [facility] nRBC Abs Auto 0.000 0.000 - [facility] 0.000 [facility] x10(3)/[facility] LABORATORY Specimen Anatomical Collection Method Collection Time Receive d Time (Source) Location / / Volume Laterality Blood 05/15/2022 12:00 05/15/2022 PM EDT 12:19 PM EDT Resulting Agency Comment Spec In Lab Lc TRIPP HEMATOLOGY ORDERABLES Performing Organization Address City/State/[place] [address] (ABNORMAL) Basic Metabolic Panel (non-fasting) (05/15/2022 12:00 PM EDT) athologist Signature Glucose Lvl 203 (H) 65 - 199 [facility] mg/dL [facility] Comment: Diabetes: >=200 mg/dL plus symp toms BUN 16 10 - 20 mg/dL [facility] Creatinine 0.84 0.80 - 1.50 mg/dL [facility] Sodium 141 135 - 145 [...] Organization Address City/State/[place] [address] documented in this encounter [...] (Given - Provider: Barbie Joyce , RN)1750 ([facility] Hold - Provider: Admin Adt - Reason: Transfer to a Procedural area)1955 ([facility] Unhold - Provider: Admin Adt) 15 (Given - Provider: Etta contreras RN) 1,000 mcg, Oral, DAILY, First dose on 05/16/22 at 0900, Until Discontinued, Routine metoprolol tartrate (Lopressor) tablet 12.5 mg (CANCEL ED) 0838 (Given - Provider: Caroline Zamora, DION)2008 (Given - Provider: Nuris Lester RN) 0853 (Given - Provider: Barbie Joyce RN)1750 ([facility] Hold - Provider: Admin Adt - Reason: Transfer to a Procedural area)1955 ([facility] Unhold - Provider: Admin Adt)2004 (Given [...] (Given - Provider: Barbie Joyce , DION)1750 ([facility] Hold - Provider: Admin Adt - Reason: Transfer to a Procedural area)1955 ([facility] Unhold - Provider: Admin Adt) 0816 [...] 0853 (Given - Provider: Barbie Joyce RN)1750 ([facility] Hold - Provider: Admin Adt - Reason: Transfer to a Procedural area)1955 ([facility] Unhold - Provider: Admin Adt) 0817 (Given - Provider: Etta contreras RN) 0.4 mg, Oral, DAILY, First dose on Fri at 0900, Until Discontinued, DO NOT CRUSH OR OPEN, Routine thiamine (Vitamin B1) tablet 100 mg 0838 (Given - Prov ider: Caroline Zamora RN) 0853 (Given - Provider: Barbie Joyce RN)1750 ([facility] Hold - Provider: Admin Adt - Reason: Transfer to a Procedural area)1955 ([facility] Unhold - Provider: Admin Adt) 0816 (Given - Provider: Etta contreras RN) 100 mg, Oral, DAILY, First dose on Fri at 0900, Until Discontinued, Routine valsartan (Diovan) tablet 40 mg 0838 (Given - Provider : Caroline Zamora, DION)2008 (Given - Provider: Nuris Lester RN) 0853 (Given - Provider: Barbie Joyce RN)1750 ([facility] Hold - Provider: Admin Adt - Reason: Transfer to a Procedural area)1955 ([facility] Unhold - Provider: Admin Adt)2005 (Given [...] - Reason: Transfer to a Procedural area)1955 ([facility] Unhold - Provider: Admin Adt) 5-10 [...]
Routine documented in this encounter Care Teams Sociology Research Assistant Relationship Specialty Start Date End Date Bobby Das MD PCP - General 10/02/[address] [place] [address] [place] [phone] documented as of this encounter
--- OUTSIDE RECORDS SUMMARY | 2022-07-24 09:21 | XMS_ITS | Encounter Summary ---
:1940 Author Organization [facility] [place] [address] Care Team Providers Name Role Phone Bobby Das MD Primary Care Provider Encounter Details Date Type Department Care Team Description 08/28/2020 Ancillary Procedure Radiology at [facility] Amy Grimaldo [address] [place] [address] [address] JAY [phone] NEUROSURGERY-N [place], [place] [address] Social History Tobacco Use [...] MD [facility] GASTROENTEROLOGY DEPT [place], [place] [address] (Wo rk) 09/05/2022 Appointment Cardiology Trinity Reid MD [facility] CARDIOLOGY [place], [place] [address] (Wo rk) 09/05/2022 Office Visit Cardiology Trinity Reid MD [facility] CARDIOLOGY [place], [place] 0[address] (Wo rk) documented as of [...] Organization Address City/State/ZIP Code Phon e Number [place], [place] documented in this encounter Visit Diagnoses Not on filedocumented in this encounter Care Teams Telephone Order Supervisor Relationship Specialty Start Date End Date Bobby Das MD PCP - General 10/02/[address] [place] [address] [place] [phone] documented as of this encounter
--- OUTSIDE RECORDS SUMMARY | 2022-07-24 09:21 | XMS_ITS | Encounter Summary ---
:1940 Author [place] [address] Care Team Providers Name Role Phone Bobby Das MD Primary Care Provider Encounter Details Date Type Department Care Team Description 07/13/2019 Orders Only Radiology Alan Brink [facility] MD Rosa hemorrhage, unspecified [facility] DR hemorrhage type (Primary [id number] RADIOLOGY DEPT Dx) [phone] [place], [place] [address] Social History Tobacco Use Types [...] MD [facility] GASTROENTEROLOGY DEPT [place], [place] [address] (Wo rk) 09/05/2022 Appointment Cardiology Trinity Reid MD [facility] [place] [address] (Wo rk) 09/05/2022 Office Visit Cardiology Trinity Reid MD [facility] [place]OLOGY [place] [address] (Wo rk) documented as of this encounter Results Prothrombin Time (07/20/2019 8:18 AM EDT) P athologist Signature PT 11.3 9.4 - 12.5 [facility] IN[facility] 1.0 [facility] LABORATORY [...] Organization Address City/State/ZIP [place] [address] (ABNORMAL) Hemogram (07/20/2019 8:18 AM EDT) Analysis Performed At Patho logist Time Signature WBC 6.0 4.0 - 9.5 [facility] x10(3)/[facility] LABORATORY RBC 4.50 (L) 4.58 - [facility] 5.54 [facility] x10(6)/[facility] LABORATORY Hemoglobin 14.8 13.7 - [facility] 16.5 gm/dL [facility] Hematocrit 43.9 40.5 - [facility] 48.5 % [facility] MCV 97.6 (H) 82.9 - [facility] 93.1 fL [facility] MCH 32.9 (H) 27.5 - [facility] 32.1 pg [facility] MCHC 33.7 32.0 - [facility] 35.7 gm/dL [facility] Platelets 164 145 - 357 [facility] x10(3)/[facility] LABORATORY RDWSD 49.3 (H) 36.0 - [facility] 45.0 [facility] LABORATORY RDWCV 13.6 11.4 - [facility] 13.8 % [facility] MPV 10.0 7.6 - 12.9 [facility] LABORATORY nRBC % Auto 0.0 % [facility] nRBC Abs Auto 0.000 0.000 - [facility] 0.000 [facility] x10(3)/[facility] LABORATORY Specimen Anatomical Collection Method Collection Time Receive d Time (Source) Location / / Volume Laterality Blood specimen 07/20/2019 8:18 AM 019 8:21 (specimen) EDT AM EDT Resulting Agency Comment Spec In Lab Bobby Marshall MD HEMATOLOGY ORDERABLES Performing Organization Address City/State/ZIP [place] [address] documented in this encounter Visit Diagnoses Diagnosis Gastrointestinal hemorrhage, unspecified gastrointestinal hemorrhage type - Primary documented in this encounter Care Teams Quality Coordinator Relationship Specialty Start Date End Date Bobby Das MD PCP - General 10/02/[address] [place] [address] [place] [phone] documented as of this encounter
--- OUTSIDE RECORDS SUMMARY | 2022-07-24 09:21 | XMS_ITS | Encounter Summary ---
:1940 Author Organization [place] [place] [address] Care Team Providers Name Role Phone Bobby Das MD Primary Care Provider Encounter Details Date Type Department Care Team Description 07/20/2019 Laboratory Lab 3L Ifrah Gastrointestina l Appointment [facility] hemorrhag e, unspecified Hospital gastrointestinal [facility] [place] [id number] Social History Tobacco Use Types Packs/Day Years [...] [facility] DR GASTROENTEROLOGY DEPT [place], [place] [address] (Wo rk) 09/05/2022 Appointment Cardiology Trinity Reid MD [facility] CARDIOLOGY [place], [place] [address] (Wo rk) 09/05/2022 Office Visit Cardiology Trinity Reid MD [facility] CARDIOLOGY [place], [place] [address] (Wo rk) documented as of this encounter Procedures Procedure Name Priority Date/Time Associated Diagnosis Comme [facility] HEMOGRAM Routine 07/20/2019 8:18 Gastrointestinal Results for [...] Time Signature WBC 6.0 4.0 - 9.5 [facility](3[facility] LABORATORY RBC 4.50 (L) 4.58 - [facility] 5.54 [facility] x10(6)/[facility] LABORATORY Hemoglobin 14.8 13.7 - [facility] 16.5 gm/dL [facility] LABORATORY Hematocrit 43.9 40.5 - [facility] 48.5 % [facility] LABORATORY MCV 97.6 (H) 82.9 - [facility] 93.1 [facility] LABORATORY MCH 32.9 (H) 27.5 - [facility] 32.1 pg [facility] LABORATORY MCHC 33.7 32.0 - [facility] 35.7 gm/dL [facility] LABORATORY Platelets 164 145 - 357 [facility] x10(3)/[facility] LABORATORY RDWSD 49.3 (H) 36.0 - [facility] 45.0 [facility] LABORATORY RDWCV 13.6 11.4 - [facility] 13.8 % [facility] LABORATORY MPV 10.0 7.6 - 12.9 [facility] LABORATORY nRBC % Auto 0.0 % [facility] LABORATORY nRBC Abs Auto 0.000 0.000 - [facility] 0.000 [facility] x10(3)/[facility] LABORATORY Specimen Anatomical Collection Method Collection Time Receive d Time (Source) Location / / Volume Laterality Blood specimen 07/20/2019 8:18 AM 019 8:21 (specimen) EDT AM EDT Resulting Agency Comment Spec In Lab Bobby Marshall MD HEMATOLOGY ORDERABLES Performing Organization Address City/State/[place] [address] Prothrombin Time (07/20/2019 8:18 AM EDT) P athologist Signature PT 11.3 9.4 - 12.5 [facility] LABORATORY INR 1.0 [facility] LABORATORY [...] Organization Address City/State/[place] [address] documented in this encounter Visit Diagnoses Diagnosis Gastrointestinal hemorrhage, unspecified gastrointestinal hemorrhage type documented in this encounter Care Teams Reading Instructor Relationship Specialty Start Date End Date Bobby Das MD PCP - General 10/02/[address] [place] [address] [place], [place] [phone] documented as of this encounter
--- OUTSIDE RECORDS SUMMARY | 2022-07-24 09:21 | XMS_ITS | Encounter Summary ---
:1940 Author Organization [facility] Address [facility] [place] [address] Care Team Providers Name Role Phone Bobby Das MD Primary Care Provider Reason for Visit - Closed Specialty Diagnoses / Procedures Referred By Contact Refer red To Contact Procedures Bobby Das MD Film Library- Storage Only DX [address] [place] [phone] Referral ID Status Reason Start Date Expiration Date Visits Requ ested Visits Authorized [id number] Closed 04/13/2021 04/13/2022 1 1 Encounter Details Date Type Department Care Team Description 01/31/2021 Ancillary Procedure Radiology Library at Bobby Almaguer MD [address] [address] [phone] (Rebekah rojas) Social History Tobacco Use Types [...] Gastroenterology Negra Collins MD [facility] DR GASTROENTEROLOGY DEPT [place], [place] [address] (Wo rk) 09/05/2022 Appointment Cardiology Trinity Reid MD [facility] ER CARDIOLOGY [place] [address] (Wo rk) 09/05/2022 Office Visit Cardiology Trinity Reid MD [facility] ER CARDIOLOGY [place] [address] (Wo rk) documented as of [...] City/State/ZIP Code Phon e Number [place], [place] documented in this encounter Visit Diagnoses Not on filedocumented in this encounter Care Teams Child Care Sitter Relationship Specialty Start Date End Date Bobby Das MD PCP - General 10/02/[address] [place] [address] [place] [phone] documented as of this encounter
--- OUTSIDE RECORDS SUMMARY | 2022-07-24 09:21 | XMS_ITS | Encounter Summary ---
:1940 Author Organization [place] [address] Care Team Providers Name Role Phone Bobby Das MD Primary Care Provider Encounter Details Date Type Department Care Team Description 06/16/2019 Ancillary Procedure Radiology Library at Bobby Almaguer MD [facility] [address] [place] [phone] (Wo rk) Social History Tobacco Use Types Packs/Day Years Used Date Current Some Day Smoker 1 50 Smokeless Tobacco: Never Used Sex Assigned at Date Recorded Not on file documented as of this encounter Plan of Treatment Upcoming Encounters Date Type Specialty Care Team Description 08/08/2022 Office Visit Gastroenterology Negra Collins MD [facility] [address] GASTROENTEROLOGY DEPT [place], [place] [address] (Wo rk) 09/05/2022 Appointment Cardiology Trinity Reid MD [facility] CARDIOLOGY [place], [place] 0[address] (Wo rk) 09/05/2022 Office Visit Cardiology Trinity Reid MD [facility] CARDIOLOGY [place], [place] [address] (Wo rk) documented as of [...] City/State/ZIP Code Phon e Number [place], [place] documented in this encounter Visit Diagnoses Not on filedocumented in this encounter Care Teams Boat Driver Relationship Specialty Start Date End Date Bobby Das MD PCP - General 10/02/[address] [place] [address] [place] [phone] documented as of this encounter
--- OUTSIDE RECORDS SUMMARY | 2022-07-24 09:21 | XMS_ITS | Encounter Summary ---
:1940 [place] [address] Care Team Providers Name Role Phone Bobby Das MD Primary Care Provider Encounter Details Date Type Department Care Team Description 02/27/2021 Notes Only Radiology Matt Chisholm MD [facility], [place] [address] DIAGNOSTIC RADIOLOGY [phone] [place] [id number] (Wo rk) Social History Tobacco Use Types [...] [facility] DR GASTROENTEROLOGY DEPT [place], [place] [address] (Wo rk) 09/05/2022 Appointment Cardiology Trinity Reid MD [facility] CARDIOLOGY [place], [place] [address] (Wo rk) 09/05/2022 Office Visit Cardiology Trinity Reid MD [facility] CARDIOLOGY [place], [place] [address] (Wo rk) documented as of this encounter Visit Diagnoses Not on filedocumented in this encounter Care Teams Iuss Analyst Relationship Specialty Start Date End Date Bobby Das MD PCP - General 10/02/[address] [place] [address] [place] [address] documented as of this encounter
--- OUTSIDE RECORDS SUMMARY | 2022-07-24 09:21 | XMS_ITS | Encounter Summary ---
:1940 Author Organization [facility] [place] [address] Care Team Providers Name Role Phone Bobby Das MD Primary Care Provider Reason for Referral Diagnostic Test (Routine) - Closed Specialty Diagnoses / Procedures Referred By Contact Refer red To Contact Radiology Diagnoses Compression fracture of T9 vertebra, initial encounter Alphonso Esquivel, DO [facility] Interventionl Rad Procedures IR Vertebroplasty Thoracic Single Level [facility] [place] [address] [place] [address] Referral ID Status Reason Start Date Expiration Date Visits V isits Requested Authorized [id number] Closed Specialty 10/13/2020 04/13/2022 1 1 Service Requested Encounter Details Date Type Department Care Team Description 10/13/2020 Orders Only Radiology at [facility] Alphonso Esquivel, Compression fracture [facility] DO of T9 vertebra, Drive [facility] [place] [address] DIAGNOSTIC RADIOLOGY [place], [place] [address] Social History Tobacco Use Types [...] [facility] DR GASTROENTEROLOGY DEPT [place], [place] 0[address] (Wo rk) 09/05/2022 Appointment Cardiology Trinity Reid MD [facility] CARDIOLOGY [place], [place] [address] (Wo rk) 09/05/2022 Office Visit Cardiology Trinity Reid MD [facility] CARDIOLOGY [place], [place] [address] (Wo rk) documented as of [...] made and a 13g a introducer needle (VasSol) was advanced through the right pedicle and t o the ??T9 vertebral body during an intermittent fluoroscopic guidance. The VasSol biopsy cannula was advanced through the introducer [...] was made and a 13ga introducer needle (Groove) was advanced through the left pedicle and [...] made and a 13g a introducer needle (VasSol) was advanced through the right pedicle and t o the T9 vertebral body during an intermittent fluoroscopic guidance. The VasSol biopsy cannula was advanced through the introducer [...] was made and a 13ga introducer needle (Groove) was advanced through the left pedicle and [...] athologist Signature PT 10.8 9.4 - 12.5 [facility] LABORATORY INR 1.0 [facility] [...] Organization Address City/State/[place] [address] Platelet count (10/25/2020 6:35 AM EST) athologist Signature Platelets 192 145 - 357 [facility] x10(3)/[facility] LABORATORY Plat Immature 2.6 0.0 - 7.4 [facility] % % [facility] LABORATORY Comment: Limitation of the Immature Platelet Frac tion (IPF)-May be less reliable when the platelet count is less than 57d670/u L due to statistical imprecision. The IPF [...] in a decreased state of production. References: [employer] The Clinical Value of the Immature Platelet Fraction (IPF) in Cell Recovery Document Number 10-1143 04/2011 [employer] The Role of the Imm ature [...] Address City/State/[place] [address] documented in this encounter Visit Diagnoses Diagnosis Compression fracture of T9 vertebra, ini tial encounter Compression fracture of T9 vertebra, ini tial encounter documented in this encounter Care Teams Bead Builder Relationship Specialty Start Date End Date Bobby Das MD PCP - General 10/02/[address] [place] [address] [place] [phone] documented as of this encounter
--- OUTSIDE RECORDS SUMMARY | 2022-07-24 09:21 | XMS_ITS | Encounter Summary ---
:1940 Author Organization [facility] [place] [address] Care Team Providers Name Role Phone Bobby Das MD Primary Care Provider Encounter Details Date Type Department Care Team Description 05/15/2022 Ancillary Procedure Radiology Library at [facility], Lavell Butt, [facility] [place] [address] VASCULAR SURGERY [phone] [place] [id number] (Wo rk) Social History Tobacco Use Types [...] [facility] DR GASTROENTEROLOGY DEPT [place], [place] 0[address] (Wo rk) 09/05/2022 Appointment Cardiology Trinity Reid MD [facility] CARDIOLOGY [place], [place] [address] (Wo rk) 09/05/2022 Office Visit Cardiology Trinity Reid MD [facility] CARDIOLOGY [place], [place] 0[address] (Wo rk) documented as of [...] Organization Address City/State/ZIP Code Phon e Number [place], [place] documented in this encounter Visit Diagnoses Not on filedocumented in this encounter Care Teams Alarm Installation Technician Relationship Specialty Start Date End Date Bobby Das MD PCP - General 10/02/[address] [place] [address] [place] [phone] documented as of this encounter
--- OUTSIDE RECORDS SUMMARY | 2022-07-24 09:21 | XMS_ITS | Encounter Summary ---
:1940 Author Organization [facility] Address [facility] [place] [address] Care Team Providers Name Role Phone Bobby Das MD Primary Care Provider Reason for Visit - Closed Specialty Diagnoses / Procedures Referred By Contact Refer red To Contact Procedures Bobby Das MD Film Library- Storage Only [facility] [place] [address] Referral ID Status Reason Start Date Expiration Date Visits Requ ested Visits Authorized [id number] Closed 02/23/2021 02/23/2022 1 1 Encounter Details Date Type Department Care Team Description 03/16/2020 Ancillary Procedure Radiology Library at Bobby Almaguer MD [address] [address] [phone] (Rebekah rojas) Social History Tobacco Use Types [...] MD [facility] GASTROENTEROLOGY DEPT [place], [place] 0[address] (Wo rk) 09/05/2022 Appointment Cardiology Trinity Reid MD [facility] ER CARDIOLOGY [place], [place] [address] (Wo rk) 09/05/2022 Office Visit Cardiology Trinity Reid MD [facility] ER CARDIOLOGY [place], [place] [address] (Wo rk) documented as of [...] Organization Address City/State/ZIP Code Phon e Number [place], [place] documented in this encounter Visit Diagnoses Not on filedocumented in this encounter Care Teams Alarm Installation Technician Relationship Specialty Start Date End Date Bobby Das MD PCP - General 10/02/[address] [place] [address] [place] [phone] documented as of this encounter
--- OUTSIDE RECORDS SUMMARY | 2022-07-24 09:21 | XMS_ITS | Encounter Summary ---
:1940 Author Organization [facility] [place] [address] Care Team Providers Name Role Phone Bobby Das MD Primary Care Provider Encounter Details Date Type Department Care Team Description 08/06/2020 Ancillary Procedure Radiology at [facility] Amy Grimaldo [address] [place] [address] 10 LITTLE JAY [phone] NEUROSURGERY-N Jov[place], [place] [address] Social History Tobacco Use Types [...] Collins MD [facility] GASTROENTEROLOGY DEPT [place], [place] [address] (Wo rk) 09/05/2022 Appointment Cardiology Trinity Reid MD [facility] CARDIOLOGY [place], [place] [address] (Wo rk) 09/05/2022 Office Visit Cardiology Trinity Reid MD [facility] CARDIOLOGY [place], [place] [address] (Wo rk) documented as of [...] Organization Address City/State/ZIP Code Phon e Number [place], [place] documented in this encounter Visit Diagnoses Not on filedocumented in this encounter Care Teams Cathode Washer Relationship Specialty Start Date End Date Bobby Das MD PCP - General 10/02/[address] [place] [address] [place] [phone] documented as of this encounter
--- OUTSIDE RECORDS SUMMARY | 2022-07-24 09:21 | XMS_ITS | Encounter Summary ---
:1940 Author Organization [facility] [place] [address] Care Team Providers Name Role Phone Bobby Das MD Primary Care Provider Encounter Details Date Type Department Care Team Description 08/06/2020 Ancillary Procedure Radiology at [facility] Amy Grimaldo [address] [place] [address] 10 LITT[address] JAY [phone] NEUROSURGERY-N Jovanny [place], [place] [address] Social History Tobacco Use Types [...] Collins MD [facility] GASTROENTEROLOGY DEPT [place], [place] 0[address] (Wo rk) 09/05/2022 Appointment Cardiology Trinity Reid MD [facility] CARDIOLOGY [place], [place] [address] (Wo rk) 09/05/2022 Office Visit Cardiology Trinity Reid MD [facility] CARDIOLOGY [place], [place] [address] (Wo rk) documented as of [...] Organization Address City/State/ZIP Code Phon e Number [place], [place] documented in this encounter Visit Diagnoses Not on filedocumented in this encounter Care Teams Securities Compliance Examiner Relationship Specialty Start Date End Date Bobby Das MD PCP - General 10/02/[address] [place] [address] [place] [phone] documented as of this encounter
--- OUTSIDE RECORDS SUMMARY | 2022-07-24 09:21 | XMS_ITS | Encounter Summary ---
:1940 Author Organization [facility] [place] [address] Care Team Providers Name Role Phone Bobby Das MD Primary Care Provider Reason for Visit Reason Comments Basal Cell Carcinoma Consultation (Routine) - Closed Specialty Diagnoses / Procedures Referred By Contact Refer red To Contact Dermatology Diagnoses REQUESTING MOHS PROCEDURE RIGHT EYEBROW FOR LESION REMOVED BUT ADDITIONAL TISSUE REMAINS Bobby Das MD Vidal, Nahid Y, MD [address] [place] [address] [place] [address] [place] [address] Fax: Referral ID Status Reason Start Date Expiration Date Visits V isits Requested Authorized [id number] Closed Consult, 06/24/2018 06/24/2019 1 [facility] Encounter Details Date Type Department Care Team Description 09/23/2018 Procedure visit Dermatology at Alvaro Romano, Basal cell carcinoma Nicol CARCAMO (BCC) of eyebrow [address] [facility] [address] [place] [address] [phone] Social History Tobacco Use Types Packs/Day Years [...] Llanos MD. Your wound(s) was repaired by [id number] stitches called a primary repair. You do [...] until your sutures are removed. 5. Some senior software manager may need to be delayed or delegated [...] as often as is recommended by your seed laboratory technician, for new skin cancers. This is once [...] it. If after hours, please call the jointer operator or [phone] and ask for the seed laboratory technician on-call. If you have any non-urgent questions or concerns, please feel free to call my office or contact me through our patient portal, [email or web address], at [email or web address] How to contact us during business hours Dermatology at [facility]: Mohs scheduling or Mohs follow-up appointments: [phone] documented in this encounter Progress Notes Alvaro [...] Who lives with patient (i.e. spouse, children, long-term/skilled nursing)? Spouse Relevant travel history or future plans: [...] follow up with his or her referring seed laboratory technician or other skin provider. Summary of Procedure(s): [...] Date: 09/23/2018 Staff Surgeon: Alvaro Llanos MD Nursing/Division Director(s): Assistants: Cassy Jacobson LPN, Jolene Pretty RN, Yolanda Fraser LPN, Savanah Licea CMA Object Oriented Developer (s): Cristina Cisneros Amanda Isenor Pre-operative diagnosis: [...] The site was confirmed with the patient/authorized representative phlebotomy services/referring physician and/or a photograph form time of [...] Right eyebrow Indication: repair of wound for sabianist of function/anatomy Final Defect size: 1.5 x [...] Negra Collins MD [facility] GASTRO[place]OLOGY [place] [address] (Wo rk) 09/05/2022 Appointment Cardiology Trinity Reid MD [facility] ER CARDIOLOGY [place], [place] [address] (Wo rk) 09/05/2022 Office Visit Cardiology Trinity Reid MD [facility] CARDIOLOGY [place], [place] [address] (Wo rk) documented as of this encounter Visit Diagnoses Diagnosis Basal cell carcinoma (BCC) of eyebrow documented in this encounter Care Teams Skatesman Relationship Specialty Start Date End Date Bobby Das MD PCP - General 10/02/[address] [place] [address] [place] [address] documented as of this encounter
--- OUTSIDE RECORDS SUMMARY | 2022-07-24 09:21 | XMS_ITS | Encounter Summary ---
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, sequela Closed compression fracture of L1 lumbar vertebra with delayed healing, subsequent encounter Malignant neoplasm of prostate Zbigniew Thompson PA [facility] Interventionl Rad Procedures IR Vertebroplasty Lumbar Multiple Levels IR Vertebral Augmentation Lumbar Single Level [facility] [place] [address] [place] [address] Fax: Referral ID Status Reason Start Date Expiration Date Visits V isits Requested Authorized [id number] Closed Specialty 07/13/2019 07/12/2020 1 1 Service Requested iagnostic Test (Routine) - Closed Specialty Diagnoses / Procedures Referred By Contact Refer red To Contact Radiology Diagnoses Closed compression fracture of L1 lumbar vertebra with delayed healing, subsequent encounter Malignant neoplasm of prostate Zbigniew Thompson PA [facility] Interventionl Rad Procedures [place] [address] [place] [address] Fax: Referral ID Status Reason Start Date Expiration Date Visits V isits Requested Authorized [id number] Closed Specialty 07/13/2019 07/12/2020 1 1 Service Requested Reason for Visit Diagnostic Test (Routine) - Closed Specialty Diagnoses / Procedures Referred By Contact Refer red To Contact Radiology Diagnoses 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, sequela Closed compression fracture of L1 lumbar vertebra with delayed healing, subsequent encounter Malignant neoplasm of prostate Zbigniew Thompson, PA [facility] Interventionl Rad Procedures IR Vertebroplasty Lumbar Multiple Levels IR Vertebral Augmentation Lumbar Single Level [facility] [place] [facility] [place] [address] [place] [address] Fax: Referral ID Status Reason Start Date Expiration Date Visits V isits Requested Authorized [id number] Closed Specialty 07/13/2019 07/12/2020 1 1 Service Requested Encounter Details Date Type Department Care Team Description 07/20/2019 Hospital Encounter Radiology at [facility] Elmer Loya, Closed compression fracture of L1 lumbar vertebra with delayed healing, subsequent encounter; [facility] Malignant neoplasm of prostate; Drive [facility] Age-related osteoporosis wit h current pathological fracture of vertebra, sequela [place], [place] CENTER [address] [facility] [phone] [place] [address] Social History Tobacco Use Types Packs/Day Years [...] Martínez RN - 07/20/2019 10:06 AM EDT [facility] Discharge Instructions for Vertebroplasty Your [...] is during regular office hours, please call [phone]. If it is after regular office hours, oron weekends or holidays, please call [phone] and ask to speak to the Airplane Designer on callfor Interventional Radiology. XXX You have [...] of : 1940 AGE: 78 y.o. Address: [address] [place] [address] [place] [phone] (home) Mobile: No relevant phone numbers on file. Referring Provider: Zbigniew Thompson REASON FOR VISIT: Order Questions Answers Where will study be performed? [facility] Radiology [120] Specify location Lumbar Reason [...] [facility] GASTROENTEROLOGY DEPT [place], [place] [address] (Wo rk) 09/05/2022 Appointment Cardiology Trinity Reid MD [facility] CARDIOLOGY [place], [place] [address] (Wo rk) 09/05/2022 Office Visit Cardiology Trinity Reid MD [facility] CARDIOLOGY [place], [place] [address] (Wo rk) documented as of [...] made and a 13g a introducer needle ([email or web address]) was advanced through the right pedicle and [...] made an d a 13ga introducer needle ([email or web address]) was advanced through the left pedicle and [...] made and a 13g a introducer needle ([email or web address]) was advanced through the right pedicle and [...] made an d a 13ga introducer needle ([email or web address]) was advanced through the left pedicle and [...] For questions regarding this report, please contact [facility] number below. Elmer Loya MD [...] made and a 13g a introducer needle ([email or web address]) was advanced through the right pedicle and [...] made an d a 13ga introducer needle ([email or web address]) was advanced through the left pedicle and [...] made and a 13g a introducer needle ([email or web address]) was advanced through the right pedicle and [...] made an d a 13ga introducer needle ([email or web address]) was advanced through the left pedicle and [...] Component Value Ref Test Analysis Performed At [facility] Method Time Signature Surgical [id number] ? [facility] The signing pathologist has (i) [...] Spence MD Verified: ??07/22/2019 ?Pathologist Performed at: ??-[facility] Dept. of Pathology, [place], [place] DISCUSSION Deeper levels into the biopsy [...] Organization Address City/State/[place] [address] Specimen to Pathology (07/20/2019 8:41 AM EDT) Specimen Anatomical Collection Method Collection Time Receive d Time (Source) Location / / Volume Laterality AP Specimen 07/20/2019 8:41 AM 9 8:41 EDT AM EDT Narrative [facility] - 07/20/2019 8:41 AM EDT Specimen requisition ordered. ??Separate Pathology report to follow Elmer Loya MD PATHOLOGY/CYTOLOGY ORDERABLE S Performing Organization Address City/State/[place] [address] documented in this encounter [...] mg documented in this encounter Care Teams Dockmaster Relationship Specialty Start Date End Date Bobby Das MD PCP - General 10/02/[address] [place] [address] [place] [phone] documented as of this encounter
--- OUTSIDE RECORDS SUMMARY | 2022-07-24 09:22 | XMS_ITS | Encounter Summary ---
:[address] [facility] [place] [address] Care Team Providers Name Role Phone Bobby Das MD Primary Care Provider Reason for Referral Diagnostic Test (Routine) - Specialty Diagnoses / Procedures Referred By Contact Refer ramila To Contact Radiology Diagnoses Chest pain, unspecified type Chronic abdominal pain Chano Rebolledo MD [facility] Rad Ct Scan Procedures CT Chest w Contrast CT Chest wo Contrast (Generic) [facility] [place] [address] [place] [address] Referral ID Status Reason Start Date Expiration Visits Visits Date Requested Authorized [id number] Specialty 12/13/2016 12/13/2017 1 1 Service Requested Consultation (Routine) - Closed Specialty Diagnoses / Procedures Referred By Contact Refer ramila To Contact Neurology Diagnoses Radiculopathy of cervical region Chano Rebolledo MD [facility] Neurology [address] [facility] [address] [place] [address] Referral ID Status Reason Start Date Expiration Date Visits V isits Requested Authorized [id number] Closed Test Only 12/13/2016 12/13/2017 1 1 Diagnostic Test (Routine) - Closed Specialty Diagnoses / Procedures Referred By Contact Refer red To Contact Radiology Diagnoses Chest pain, unspecified type Chronic abdominal pain Chano Rebolledo MD [facility] Rad Ct Scan Procedures CT Abdomen & Pelvis w Contrast [facility] [place] [address] [place] [address] Referral ID Status Reason Start Date Expiration Date Visits V isits Requested Authorized [id number] Closed Specialty 12/13/2016 12/13/2017 1 1 Service Requested Reason for Visit Reason Comments Pain Management Neck Pain Bilateral Arm Pain burning across sternum and r ibs, both sides Consultation (Routine) - Closed Specialty Diagnoses / Procedures Referred By Contact Refer red To Contact Pain Management Diagnoses cervical radiculopathy Bobby Das MD [facility] [address] [place] [address] [address] [place], [place] [address] [address] [place] [address] Fax: Referral ID Status Reason Start Date Expiration Date Visits V isits Requested Authorized [id number] Closed Consult, 11/22/2016 11/22/2017 1 1 Test & Treat Encounter Details Date Type Department Care Team Description 12/13/2016 Office Visit Pain Management at [facility], Chest adrianna n, unspecified type; Jose Sullivan MD Chronic abdominal pain; [facility] Radiculop athy of cervical region [facility] [address], [place] [facility] [address] [place] [address] Social History Tobacco Use Types [...] Rebolledo MD - 12/13/2016 1:00 PM EST [facility] [place] [address] Phone: PAIN MANAGEMENT NEW PATIENT / CONSULTATION NOTE DATE OF VISIT 12/13/2016 Patient Koko Zamora 1940 REFERRING PROVIDER Bobby Das MD [address] [place] [address] [place] [address] PRIMARY CARE PROVIDER Bobby Das MD CHIEF [...] Aspirin Other (See Comments) 06/28/2011 MEDICATIONS The [place] and [place] Prescription Monitoring Program were checked & no [...] restless FUNCTIONAL /SOCIAL Lives with: 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 Follow up: -Patient will be called after results are obtained. Koko J Zamora had the opportunity to ask questions and indicated that all questions were answered to his satisfaction. Thank you for this referral, Bobby Das MD [address] [place] [phone]. Chano Rebolledo MD Leonel Orozco MD - [...] [facility] DR GASTROENTEROLOGY DEPT [place], [place] [address] (Wo rk) 09/05/2022 Appointment Cardiology Trinity Reid MD [facility] CARDIOLOGY [place], [place] [address] (Wo rk) 09/05/2022 Office Visit Cardiology Trinity Reid MD [facility] CARDIOLOGY [place], [place] [address] (Wo rk) Scheduled Referrals Name [...] site documented in this encounter Care Teams Nursing Home Aide Relationship Specialty Start Date End Date Bobby Das MD PCP - General 10/02/[address] [place] [address] [place] [phone] documented as of this encounter
--- OUTSIDE RECORDS SUMMARY | 2022-07-24 09:22 | XMS_ITS | Encounter Summary ---
:1940 Author Organization [facility] Address [address] [address] Care Team Providers Name Role Phone Bobby Das MD Primary Care Provider Reason for Visit Reason Comments Shortness of Breath Encounter Details Date Type Department Care Team Description 12/24/2011 Office Visit [facility] Torrey Giang SOB (shortness of [address] Mendoza MD breath) (Primary Dx) [facility] [address] CARDIOLOGY DEPT. [place], [place] [address] Social History Tobacco Use Types [...] Collins MD [facility] GASTROENTEROLOGY DEPT [place], [place] [address] (Wo rk) 09/05/2022 Appointment Cardiology Trinity Reid MD [facility] CARDIOLOGY [place], [place] [address] (Wo rk) 09/05/2022 Office Visit Cardiology Trinity Reid MD [facility] CARDIOLOGY [place], [place] [address] (Wo rk) documented as of this encounter Visit Diagnoses Diagnosis SOB (shortness of breath) - Primary Shortness of breath documented in this encounter Care Teams Learning Operations Specialist Relationship Specialty Start Date End Date Bobby Das MD PCP - General 10/02/[address] [place] [address] [place] [phone] documented as of this encounter
--- OUTSIDE RECORDS SUMMARY | 2022-07-24 09:22 | XMS_ITS | Encounter Summary ---
:1940 Author Organization [facility] [place] [address] Care Team Providers Name Role Phone Bobby Das MD Primary Care Provider Encounter Details Date Type Department Care Team Description 07/26/2015 External Results Medical Records Provider, Scanning [facility] [place] [address] Social History Tobacco Use Types Packs/Day Years Used Date Current Some Day Smoker 1 50 Smokeless Tobacco: Never Used Sex Assigned at Date Recorded Not on file documented as of this encounter Plan of Treatment Upcoming Encounters Date Type Specialty Care Team Description 08/08/2022 Office Visit Gastroenterology Negra Collins MD [facility] GASTROENTEROLOGY DEPT [place], [place] [address] (Wo rk) 09/05/2022 Appointment Cardiology Trinity Reid MD [facility] CARDIOLOGY [place], [place] [address] (Wo rk) 09/05/2022 Office Visit Cardiology Trinity Reid MD [facility] CARDIOLOGY [place], [place] [address] (Wo rk) documented as [...] filedocumented in this encounter Care Teams Licensed Audiologist Relationship Specialty Start Date End Date Bobby Das MD PCP - General 10/02/[address] [place] [address] [place] [phone] documented as of this encounter
--- OUTSIDE RECORDS SUMMARY | 2022-07-24 09:22 | XMS_ITS | Encounter Summary ---
:1940 Author Organization [facility] [place] [address] Care Team Providers Name Role Phone Bobby Das MD Primary Care Provider Encounter Details Date Type Department Care Team Description 12/13/2016 Telephone Pain Management [place] [address] Social History Tobacco Use Types Packs/Day [...] [facility] DR GASTROENTEROLOGY DEPT [place], [place] [address] (Wo rk) 09/05/2022 Appointment Cardiology Trinity Reid MD [facility] CARDIOLOGY [place], [place] [address] (Wo rk) 09/05/2022 Office Visit Cardiology Trinity Reid MD [facility] CARDIOLOGY [place], [place] [address] (Wo rk) documented as of this encounter Visit Diagnoses Not on filedocumented in this encounter Care Teams Manager Center Relationship Specialty Start Date End Date Bobby Das MD PCP - General 10/02/[address] [place] [address] [place] [phone] documented as of this encounter
--- OUTSIDE RECORDS SUMMARY | 2022-07-24 09:22 | XMS_ITS | Encounter Summary ---
:1940 Author Organization [facility] Address [facility] [place] [address] Care Team Providers Name Role Phone Bobby Das MD Primary Care Provider Reason for Visit Reason Comments Shortness of Breath Encounter Details Date Type Department Care Team Description 06/28/2011 Office Visit Cardiology at [facility] Chet Nicole SOB (shortness of breath) (P rimary Dx); [facility] GIB (gastrointestinal bleeding); Drive [facility] MVP (mitral valve prolapse) [place] [address] CARDIOLOGY DEPT. [phone] [place], [place] [address] Social History Tobacco Use Types [...] Giordano MD - 06/28/2011 4:15 PM EDT [facility] Cholesterol and Triglycerides Tests: About These [...] 60 mg/dl is considered ideal. ?? Total qqveiqpsvph-zz-TIJ ratio: A ratio of 5:1 or lower is recommended. ?? LDL cholesterol: Between 100-129 mg/dL is recommended. Lower than 100 mg/dL is considered ideal. ?? VLDL cholesterol: 30 mg/dL or less is recommended. ?? Triglycerides: Lower than 150 mg/dL is recommended. Where can you learn more? Visit our health information library at [email or web address]. You can also view health information on [employer], your personal patient account. Log in or sign up today. Enter V788 in the search box to learn more about Cholesterol and Triglycerides Tests: About These Tests. ?? [id number] [employer]. Care instructions adapted under license by [facility]. This care instruction is for use with your licensed healthcare professional. If you have questionsabout a medical condition or this instruction, always ask your healthcare professional. [employer] disclaims any warranty or liability for your [...] valve prolapse) s/p repair Surgery done at [facility] in 2000 ??? Hypertriglyceridemia ??? Adhesive capsulitis of L shoulder ??? Alcohol use Medications: [place]-3 Fatty Acids-Vitamin E (FISH OIL) 1,000 mg [...] [facility] GASTROENTEROLOGY DEPT [place], [place] [address] (Wo rk) 09/05/2022 Appointment Cardiology Trinity Reid MD [facility] CARDIOLOGY [place], [place] [address] (Wo rk) 09/05/2022 Office Visit Cardiology Trinity Reid MD [facility] CARDIOLOGY [place], [place] [address] (Wo rk) documented as of this encounter Procedures Procedure Name Priority Date/Time Associated Diagnosis Comme nts EKG 12-LEAD Routine 06/28/2011 2:59 PM SOB (shortness of Resu lts for this EDT breath) procedure are i n the results section . documented in this encounter Results EKG 12 Lead (06/28/2011 2:59 PM EDT) [facility] gist Method Time Signature Ventricular rate 70 BPM MUSE SYSTEM Atrial Rate 70 BPM MUSE SYSTEM P-R Interval 182 ms MUSE SYSTEM QRS Duration 106 ms MUSE SYSTEM Q-T Interval 406 ms MUSE SYSTEM QTC Calculated 438 ms MUSE SYSTEM (Bezet) Calculated P [place] 60 degrees MUSE SYSTEM Calculated R [place] -51 degrees MUSE SYSTEM Calculated T [place] 32 degrees MUSE SYSTEM INTERPRETATION Normal sinus [...] disorders documented in this encounter Care Teams Tafe Registrar Relationship Specialty Start Date End Date Bobby Das MD PCP - General 10/02/[address] [place] [address] [place] [phone] documented as of this encounter
--- OUTSIDE RECORDS SUMMARY | 2022-07-24 09:22 | XMS_ITS | Encounter Summary ---
:1940 Author Organization [facility] [place] [address] Care Team Providers Name Role Phone Bobby Das MD Primary Care Provider Encounter Details Date Type Department Care Team Description 06/26/2018 Ancillary Procedure Radiology Library at Bobby Almaguer MD [facility] [address] [place] [phone] (Wo rk) Social History Tobacco Use Types Packs/Day Years Used Date Current Some Day Smoker 1 50 Smokeless Tobacco: Never Used Sex Assigned at Date Recorded Not on file documented as of this encounter Plan of Treatment Upcoming Encounters Date Type Specialty Care Team Description 08/08/2022 Office Visit Gastroenterology Negra Collins MD [facility] DR GASTROENTEROLOGY DEPT [place], [place] [address] (Wo rk) 09/05/2022 Appointment Cardiology Trinity Reid MD [facility] CARDIOLOGY [place], [place] [address] (Wo rk) 09/05/2022 Office Visit Cardiology Trinity Reid MD [facility] CARDIOLOGY [place], [place] [address] (Wo rk) documented as of [...] Organization Address City/State/ZIP Code Phon e Number [place], [place] documented in this encounter Visit Diagnoses Not on filedocumented in this encounter Care Teams Mat Roller Relationship Specialty Start Date End Date Bobby Das MD PCP - General 10/02/[address] [place] [address] [place] [address] documented as of this encounter
--- OUTSIDE RECORDS SUMMARY | 2022-07-24 09:22 | XMS_ITS | Encounter Summary ---
:1940 Author Organization [facility] [place] [address] Care Team Providers Name Role Phone Bobby Das MD Primary Care Provider Encounter Details Date Type Department Care Team Description 12/16/2016 [facility] [place] [address] Social History Tobacco Use Types Packs/Day [...] MD [facility] GASTROENTEROLOGY DEPT [place], [place] [address] (Wo rk) 09/05/2022 Appointment Cardiology Trinity Reid MD [facility] CARDIOLOGY [place], [place] [address] (Wo rk) 09/05/2022 Office Visit Cardiology Trinity Reid MD [facility] CARDIOLOGY [place], [place] [address] (Wo rk) documented as of this encounter Visit Diagnoses Not on filedocumented in this encounter Care Teams Hand Counter Relationship Specialty Start Date End Date Bobby Das MD PCP - General 10/02/[address] [place] [address] [place] [phone] documented as of this encounter
--- OUTSIDE RECORDS SUMMARY | 2022-07-24 09:22 | XMS_ITS | Encounter Summary ---
:1940 Author Organization [facility] [place] [address] Care Team Providers Name Role Phone Bobby Das MD Primary Care Provider Reason for Referral Diagnostic Test (Routine) - Specialty Diagnoses / Procedures Referred By Contact Refer red To Contact Radiology Diagnoses Chest pain, unspecified type Chronic abdominal pain Chano Rebolledo MD [facility] Rad Ct Scan Procedures CT Chest w Contrast CT Chest wo Contrast (Generic) [facility] [place] [address] [place] [address] Referral ID Status Reason Start Date Expiration Visits Visits Date Requested Authorized [id number] Specialty 12/13/2016 12/13/2017 1 1 Service Requested Diagnostic Test (Routine) - Closed Specialty Diagnoses / Procedures Referred By Contact Refer red To Contact Radiology Diagnoses Chest pain, unspecified type Chronic abdominal pain Chano Rebolledo MD [facility] Rad Ct Scan Procedures CT Abdomen & Pelvis w Contrast [facility] [place] [address] [place] [address] Referral ID Status Reason Start Date Expiration Date Visits V isits Requested Authorized [id number] Closed Specialty 12/13/2016 12/13/2017 1 1 Service Requested Reason for Visit Diagnostic Test (Routine) - Closed Specialty Diagnoses / Procedures Referred By Contact Refer red To Contact Radiology Diagnoses Chest pain, unspecified type Chronic abdominal pain Chano Rebolledo MD [facility] Rad Ct Scan Procedures CT Abdomen & Pelvis w Contrast [facility] [place] [address] [place] [address] Referral ID Status Reason Start Date Expiration Date Visits V isits Requested Authorized [id number] Closed Specialty 12/13/2016 12/13/2017 1 1 Service Requested Encounter Details Date Type Department Care Team Description 12/17/[address] Scan at [facility], Chest pain, unspecified type ; [facility] Leonel Sullivan MD Chronic abdominal pain Drive [facility] [address] PAIN CLINIC [phone] [place] [address] Social History Tobacco Use Types [...] Collins MD [facility] GASTROENTEROLOGY DEPT [place], [place] [address] (Wo rk) 09/05/2022 Appointment Cardiology Trinity Reid MD [facility] DR [address] [place], [place] [address] (Wo rk) 09/05/2022 Office Visit Cardiology Trinity Reid MD [facility] [address] [place], [place] [address] (Wo rk) documented as [...] 12[address] documented in this encounter Care Teams Sole Conforming Machine Operator Relationship Specialty Start Date End Date Bobby Das MD PCP - General 10/02/[address] [place] [address] [place] [address] documented as of this encounter
--- OUTSIDE RECORDS SUMMARY | 2022-07-24 09:22 | XMS_ITS | Encounter Summary ---
:1940 Author Organization [facility] [place] [address] Care Team Providers Name Role Phone Bobby Das MD Primary Care Provider Reason for Visit Reason Onset Date Comments Pre Procedure Call 08/01/2015 Encounter Details Date Type Department Care Team Description 08/01/2015 Telephone Dermatology at [facility] Jacobson, Pre Procedure Call [address] [place] [address] Social History Tobacco Use Types Packs/Day [...] MD [facility] DR GASTROENTEROLOGY DEPT [place], [place] [address] (Wo rk) 09/05/2022 Appointment Cardiology Trinity Reid MD [facility] CARDIOLOGY [place], [place] [address] (Wo rk) 09/05/2022 Office Visit Cardiology Trinity Reid MD [facility] CARDIOLOGY [place], [place] [address] (Wo rk) documented as of this encounter Visit Diagnoses Not on filedocumented in this encounter Care Teams Care Team Assistant Relationship Specialty Start Date End Date Bobby Das MD PCP - General 10/02/[address] [place] [address] [place] [address] documented as of this encounter
--- OUTSIDE RECORDS SUMMARY | 2022-07-24 09:22 | XMS_ITS | Encounter Summary ---
:1940 Author Organization [facility] [place] [address] Care Team Providers Name Role Phone Bobby Das MD Primary Care Provider Reason for Visit Reason Comments Basal Cell Carcinoma Encounter Details Date Type Department Care Team Description 08/08/2015 [facility] (basal cell Road MD carcinoma of skin) [address] [place] [address] [facility] [place] [place] [address] Social History Tobacco Use Types [...] Our facility does not offer a guest [employer] network at this time. We also recommend [...] specified we require that you have a school bus driver, as surgery can be stressful and tiring. If you are being transported from a jail or other similar facility, we request that someone stay with you during this appointment. We are located in the [facility] [place], [place]. Please refer to the [facility] website for detailed driving directions ([email or web address]). When you arrive, please park in the upper parking lot. When you enter the building, go to the third floor, the hotel receptionist area is located on the left [...] If this fails, contact our office at [phone] (after 5PM please call [phone] and ask for the Volleyball Coach professional volleyball player). Avoid bending over, heavy lifting (no greater [...] are taking. Our office phone number is [phone]. documented in this encounter Progress Notes Leo Solo MD - 08/08/2015 1:50 PM EDT [facility] Chief Complaint: Basal cell carcinoma History of Present Illness: Referring Physician: Dr. Zheng, [facility] (07/03/15) Tumor type: BCC Location of Skin Cancer: Right episcopal Duration of Presence: 1 year Previous Treatment: [...] acute distress. Skin: Limited examination of right episcopal reveals a 5 mm erythematous papule. Assessment and Plan 1. BCC, right episcopal Reviewed treament options including wide local excision, [...] MD [facility] DR GASTROENTEROLOGY DEPT [place], [place] [address] (Wo rk) 09/05/2022 Appointment Cardiology Trinity Reid MD [facility] CARDIOLOGY [place], [place] [address] (Wo rk) 09/05/2022 Office Visit Cardiology Trinity Reid MD [facility] CARDIOLOGY [place], [place] [address] (Wo rk) documented as of this encounter Visit Diagnoses Diagnosis BCC (basal cell carcinoma of skin) Basal cell carcinoma of skin, site unspe cified documented in this encounter Care Teams Product Development Intern Relationship Specialty Start Date End Date Bobby Das MD PCP - General 10/02/[address] [place] [address] [place] [phone] documented as of this encounter
--- OUTSIDE RECORDS SUMMARY | 2022-07-24 09:22 | XMS_ITS | Encounter Summary ---
:1940 Author Organization [facility] [place] [address] Care Team Providers Name Role Phone Bobby Das MD Primary Care Provider Encounter Details Date Type Department Care Team Description 12/20/2016 Telephone Pain Management at [facility] Kristin Schultz, RN [facility] [place] [address] Social History Tobacco Use Types Packs/Day Years Used Date Current Some Day Smoker 1 50 Smokeless Tobacco: Never Used Sex Assigned at Date Recorded Not on file documented as of this encounter Miscellaneous Notes Telephone Encounter - Kristin Schultz LPN - 12/20/2016 11:02 AM EST Pt called requesting that the Referral to Hematology and Oncology be sent to [facility] [place] [place]. Will Follow up up with the pain clinic after appointment. documented in this encounter Plan of Treatment Upcoming Encounters Date Type Specialty Care Team Description 08/08/2022 Office Visit Gastroenterology Negra Collins MD [facility] GASTROENTEROLOGY DEPT [place], [place] [address] (Wo rk) 09/05/2022 Appointment Cardiology Trinity Reid MD [facility] CARDIOLOGY [place], [place] [address] (Wo rk) 09/05/2022 Office Visit Cardiology Trinity Reid MD [facility] CARDIOLOGY [place], [place] [address] (Wo rk) documented as of this encounter Visit Diagnoses Not on filedocumented in this encounter Care Teams Foaming Machine Operator Relationship Specialty Start Date End Date Bobby Das MD PCP - General 10/02/[address] [place] [address] [place] [address] documented as of this encounter
--- OUTSIDE RECORDS SUMMARY | 2022-07-24 09:22 | XMS_ITS | Encounter Summary ---
:1940 Author Organization [facility] [place] [address] Care Team Providers Name Role Phone Bobby Das MD Primary Care Provider Reason for Visit Reason Comments Basal Cell Carcinoma Encounter Details Date Type Department Care Team Description 08/24/2015 Procedure visit Dermatology at [facility] Leo Solo BCC (basal cell Road MD Delores carcinoma of skin) [address] [facility] [address] [facility] [phone] [address] [address] Social History Tobacco Use Types Packs/Day Years [...] when the wound is well cared for. [place] drainage or slight yellow film on your [...] the hospital number and ask for the Cheese Supervisor consulting services manager. Wound Care for Sutured Wounds You [...] the hospital number and ask for the Cheese Supervisor consulting services manager. documented in this encounter Progress Notes Leo Solo MD - 08/24/2015 3:25 PM EDT Operative Report Patient name: Koko Zamora : 1940 Date: 08/24/2015 Staff Surgeon: Leo Solo MD, PhD Urban Sociologist I: Cassy Jacobson, Yolanda Verdin, Etta Burciaga, Gloria Culver MD Health Careers Instructor: Kourtney Cabrera Pre-operative diagnosis: Basal cell carcinoma Post-operative diagnosis: Basal cell carcinoma Location: Right faith Procedure: Mohs micrographic surgery Indication for Mohs micrographic surgery: Critical anatomic location Stages: 2 Final defect size: 3.6 x 2.0 cm Stage I The nature and purpose of the procedure, associated risks, possible consequences and complications,and alternative forms of treatment were explained in detail. Informed consent and permission to takephotographs were obtained. The site was confirmed with the patient/authorized open claims representative/referring physician and a pre-operative time-out was [...] 08/24/2015 Staff Surgeon: Leo Solo MD, PhD Urban Sociologist I: Yolanda Rivera, Estefania Welch Clinical Diagnosis: 3.6 x 2.0 cm surgical defect secondary to Mohs microscopically controlled excision of basal cell carcinoma Location: Right faith Procedure: Transposition flap repair Due to the [...] Collins MD [facility] GASTROENTEROLOGY DEPT [place], [place] [address] ([facility]) 09/05/2022 Appointment Cardiology Trinity Reid MD [facility] CARDIOLOGY [place], [place] [address] ([facility]) 09/05/2022 Office Visit Cardiology Trinity Reid MD [facility] CARDIOLOGY [place], [place] [address] ([facility]) documented as of this encounter Visit Diagnoses Diagnosis BCC (basal cell carcinoma of skin) Basal cell carcinoma of skin, site unspe cified documented in this encounter Care Teams Sales Office Manager Relationship Specialty Start Date End Date Bobby Das MD PCP - General 10/02/[address] [place] [address] [place] [phone] documented as of this encounter
--- OUTSIDE RECORDS SUMMARY | 2022-07-24 09:22 | XMS_ITS | Encounter Summary ---
:1940 [place] [address] Care Team Providers Name Role Phone Bobby Das MD Primary Care Provider Encounter Details Date Type Department Care Team Description 08/25/2015 Telephone Dermatology at [facility] Gloria Ferrell MD [address] [facility] [place] [address] [facility]-DERMATOLOGY [phone] [place], [place] [address] (Wo rk) Social History [...] [facility] DR GASTROENTEROLOGY DEPT [place], [place] [address] (Wo rk) 09/05/2022 Appointment Cardiology Trinity Reid MD [facility] CARDIOLOGY [place], [place] [address] (Wo rk) 09/05/2022 Office Visit Cardiology Trinity Reid MD [facility] CARDIOLOGY [place], [place] [address] (Wo rk) documented as of this encounter Visit Diagnoses Not on filedocumented in this encounter Care Teams Software Sales Consultant Relationship Specialty Start Date End Date Bobby Das MD PCP - General 10/02/[address] [place] [address] [place] [phone] documented as of this encounter
--- OUTSIDE RECORDS SUMMARY | 2022-07-24 09:22 | XMS_ITS | Encounter Summary ---
:1940 Author Organization [facility] Address [facility] [place] [address] Care Team Providers Name Role Phone Bobby Das MD Primary Care Provider Reason for Visit Reason Onset Date Comments Other 07/19/2011 Encounter Details Date Type Department Care Team Description 07/19/2011 Telephone Cardiology at [facility] Chet Nicole MD [facility] [place] [address] CARDIOLOGY DEPT. [phone] [place], [place] [address] (Wo rk) Social History Tobacco [...] Negra Collins MD [facility] GASTROENTEROLOGY DEPT [place], [place] [address] (Wo rk) 09/05/2022 Appointment Cardiology Trinity Reid MD [facility] ER CARDIOLOGY [place], [place] [address] (Wo rk) 09/05/2022 Office Visit Cardiology Trinity Reid MD [facility] ER CARDIOLOGY [place], [place] [address] (Wo rk) documented as of this encounter Visit Diagnoses Not on filedocumented in this encounter Care Teams Actuarial Consultant Relationship Specialty Start Date End Date Bobby Das MD PCP - General 10/02/[address] [place] [address] [place] [phone] documented as of this encounter
--- OUTSIDE RECORDS SUMMARY | 2022-07-24 09:22 | XMS_ITS | Encounter Summary ---
:1940 Author Organization [facility] [address] Care Team Providers Name Role Phone Bobby Das MD Primary Care Provider Reason for Visit Reason Comments Shortness of Breath Encounter Details Date Type Department Care Team Description 09/17/2011 Office Visit [facility] Giang SOB (shortness of [address] Mendoza MD breath) (Primary Dx) [facility] [address] CARDIOLOGY DEPT[address] [place] [address] Social History Tobacco Use Types Packs/Day Years [...] Collins MD [facility] GASTROENTEROLOGY DEPT [place], [place] [address] (Wo rk) 09/05/2022 Appointment Cardiology Trinity Reid MD [facility] CARDIOLOGY [place], [place] [address] (Wo rk) 09/05/2022 Office Visit Cardiology Trinity Reid MD [facility] CARDIOLOGY [place], [place] [address] (Wo rk) documented as of [...] breath documented in this encounter Care Teams Convalescent Sitter Relationship Specialty Start Date End Date Bobby Das MD PCP - General 10/02/[address] [place] [address] [place] [phone] documented as of this encounter
--- OUTSIDE RECORDS SUMMARY | 2022-07-24 09:22 | XMS_ITS | Encounter Summary ---
:1940 Author Organization [facility] [place] [address] Care Team Providers Name Role Phone Bobby Das MD Primary Care Provider Reason for Visit Reason Comments Suture / Staple Removal Encounter Details Date Type Department Care Team Description 08/31/2015 Clinical Support Dermatology at [place] Visit for suture Heat Nicol Estrella MD removal [address] [facility] [address] [facility] [phone] RD-DERMATOLOGY [place] [address] Social History Tobacco Use Types Packs/Day Years Used Date Current Some Day Smoker 1 50 Smokeless Tobacco: Never Used Sex Assigned at Date Recorded Not on file documented as of this encounter Progress Notes Jeni Franco LPN - 08/31/2015 2:47 PM EDT HPI: Patient is a 74 y.o. male with history of basal cell carcinoma, right restorationism, s/p Mohs repairedby transposition flap repair who is presenting for suture removal. Denies complications. Exam: General: No acute distress Skin: Limited examination of right restorationism shows a well-healed flap. There is no erythema, dehiscence, ecchymosis, or drainage. Assessment and Plan 1. Basal cell carcinoma, right restorationism, s/p Mohs repaired by transposition flap repair [...] MD [facility] GASTROENTEROLOGY DEPT [place], [place] [address] (Wo rk) 09/05/2022 Appointment Cardiology Trinity Reid MD [facility] CARDIOLOGY [place], [place] [address] (Wo rk) 09/05/2022 Office Visit Cardiology Trinity Reid MD [facility] CARDIOLOGY [place], [place] [address] (Wo rk) documented as of this encounter Visit Diagnoses Diagnosis Visit for suture removal Encounter for removal of sutures documented in this encounter Care Teams Complaint Manager Relationship Specialty Start Date End Date Bobby Das MD PCP - General 10/02/[address] [place] [address] [place] [phone] documented as of this encounter
--- OUTSIDE RECORDS SUMMARY | 2022-07-24 09:22 | XMS_ITS | Encounter Summary ---
:1940 Author Organization [facility] [place] [address] Care Team Providers Name Role Phone Bobby Das MD Primary Care Provider Reason for Visit Reason Comments Skin Check Encounter Details Date Type Department Care Team Description 03/29/2014 Office Visit Dermatology at [facility], Kyle c ell carcinoma (Primary Dx); Nba CARCAMO Verruca vulgaris; [address] [place] (actinic keratosis) [facility] B DERMATOLOGY [place], [place] [phone] Social History Tobacco Use Types Packs/Day Years [...] sun over the years. He lives in [place], [place]. Physical examination reveals a pleasant, 73-year-old gentleman who has a pearly, 1-cm papule on the right lateral canthus, site A; and a pearly papule about 8 mm in diameter, site C, on the right congregational at the scalp line. At the central [...] BCCAs, right lateral canthus and right lateral congregational, sites A and C, respectively. a. After [...] Collins MD [facility] GASTROENTEROLOGY DEPT [place], [place] [address] (Wo rk) 09/05/2022 Appointment Cardiology Trinity Reid MD [facility] CARDIOLOGY [place], [place] [address] (Wo rk) 09/05/2022 Office Visit Cardiology Trinity Reid MD [facility] CARDIOLOGY [place], [place] [address] (Wo rk) documented as of this encounter Visit Diagnoses Diagnosis Basal cell carcinoma - Primary Basal cell carcinoma of skin, site unspe cified Verruca vulgaris Viral warts, unspecified [place] (actinic keratosis) Actinic keratosis documented in this encounter Care Teams Tone Regulator Relationship Specialty Start Date End Date Bobby Das MD PCP - General 10/02/[address] [place] [address] [place] [address] documented as of this encounter
--- OUTSIDE RECORDS SUMMARY | 2022-07-24 09:22 | XMS_ITS | Encounter Summary ---
:1940 Author Organization [facility] [place] [address] Care Team Providers Name Role Phone Bobby Das MD Primary Care Provider Reason for Visit Reason Comments Follow-up Encounter Details Date Type Department Care Team Description 05/31/2014 [facility] of basal cell Nba CARCAMO carcinoma (Primary [address] Dx) [facility] B DERMATOLOGY [place], [place] [address] [phone] Social History Tobacco Use Types Packs/Day Years Used Date Current Some Day Smoker 1 50 Smokeless Tobacco: Never Used Sex Assigned at Date Recorded Not on file documented as of this encounter Patient Instructions Patient InstructionsSupriya Louis LPN - 05/31/2014 1:34 PM EDT Images from the original note were not included. [facility] Actinic Keratosis: After Your Visit [...] more? Visit our health information library at [email or web address] You can also view health information on [employer], your personal patient account. Log in or sign up today. Enter L364 in the search box to learn more about Actinic Keratosis: After Your Visit. ?? [id number] [employer]. Care instructions adapted under license by [facility]. This care instruction is for use with your licensed healthcare professional. If you have questionsabout a medical condition or this instruction, always ask your healthcare professional. [employer] disclaims any warranty or liability for your use of this information. Content Version: [id number]; Last Revised: December 22, 2012 documented in this encounter Progress Notes Hammer, Cy J, MD - 05/31/2014 2:08 PM EDT Problem: Follow up for repeat skin checkup. Shadi follows up after last being seen in March. At that time, I removed using shave C and D a BCCA from the right lateral canthus and a BCCA from the right lateral mormonism. I also treated a verruca vulgaris on [...] [facility] GASTROENTEROLOGY DEPT [place], [place] [address] (Wo rk) 09/05/2022 Appointment Cardiology Trinity Reid MD [facility] [address] [place], [place] [address] (Wo rk) 09/05/2022 Office Visit Cardiology Trinity Reid MD [facility] [address] [place], [place] [address] (Rebekah rojas) documented as of this encounter Visit Diagnoses Diagnosis History of basal cell carcinoma - Primar y Personal history of other malignant neop lasm of skin documented in this encounter Care Teams Drill Press Hand Relationship Specialty Start Date End Date Bobby Das MD PCP - General 10/02/[address] [place] [address] [place] [phone] documented as of this encounter
--- OUTSIDE RECORDS SUMMARY | 2022-07-24 09:22 | XMS_ITS | Encounter Summary ---
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..] I will make a heme/oncology consultation with [facility] for the patient in the meantime. documented in this encounter Plan of Treatment Upcoming Encounters Date Type Specialty Care Team Description 08/08/2022 Office Visit Gastroenterology Negra Collins MD [facility] GASTROENTEROLOGY DEPT [place], [place] [address] (Wo rk) 09/05/2022 Appointment Cardiology Trinity Reid MD [facility] CARDIOLOGY [place], [place] [address] (Wo rk) 09/05/2022 Office Visit Cardiology Trinity Reid MD [facility] CARDIOLOGY [place], [place] [address] (Wo rk) Scheduled Referrals Name Type Priority Associated Diagnoses Order S chedule Referral to Outpatient Referral Routine Neoplasm of Ordered: Hematology and uncertain behavior 017 Oncology of respiratory organ documented as of this encounter Visit Diagnoses Diagnosis 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
--- OUTSIDE RECORDS SUMMARY | 2022-07-24 09:28 | XMS_ITS | Encounter Summary ---
:1940 Author Organization [facility] Address [address] [place] [address] Care Team Providers Name Role Phone Bobby Das MD Primary Care Provider Reason for Visit Reason Comments Prostate Cancer Encounter Details Date Type Department Care Team Description 02/03/2018 Radiation Therapy [facility] Aries Gutierrez alignant neoplasm Visit Radiation Oncology Felix EAST [facility] - [address] ([facility] ([facility] [address] [place] [address] (Primary Dx) [facility], [address] [place] [address] [address] [place] [address] Social History Tobacco Use Types Packs/Day Years Used Date Current Every Day Smoker Smokeless Tobacco: Never Used Sex Assigned at Date Recorded Not on file documented as of this encounter Progress Notes Delores Gutierrez III, MD - 02/03/2018 3761 EDT On Treatment Visit Assessment: Koko Zamora is currently receiving radiation therapy treatment and is being seen today for his weekly on treatment visit. The encounter diagnosis was Malignant neoplasm of prostate ([facility]). Assessment: Assessment Completed By: Felix Gutierrez MD (02/03/18 6815) Radiation Therapy: Cumulative RT Dose 600 cGy [...] Changes: None Sj Gutierrez MD Radiation Oncology [phone] (office) [phone] (pager) documented in this encounter Plan of [...] documented as of this encounter Care Teams Beam Saw Operator Relationship Specialty Start Date End Date Bobby Das MD PCP - General 07/06/[address] [place] [address],[address] [place] [address] documented as of this encounter
--- OUTSIDE RECORDS SUMMARY | 2022-07-24 09:28 | XMS_ITS | Encounter Summary ---
:[address] [facility] Address [address] [place] [address] Care Team Providers Name Role Phone Unknown, Provider Primary Care Provider Encounter Details Date Type Department Care Team Description 07/03/2015 Results Only [facility] Abby Das MD [phone] [place] [address],[address] [place], [place] [phone] (Wo rk) Social History Tobacco Use Types Packs/Day Years Used Date Never Assessed Sex Assigned at Date Recorded Not on file documented as of this encounter Plan of Treatment Not on filedocumented as of this encounter Procedures Procedure Name Priority Date/Time Associated Diagnosis Comme [facility] SURGICAL PATHOLOGY Routine 07/03/2015 8:54 EDT Re sults for this procedure are i n the results section. documented in this encounter Results SURGICAL PATHOLOGY (07/03/2015 8:54 EDT) Pathology Report: SURGICAL PATHOLOGY REPORT [facility] Reports generated via electronic interface contain abram ginal data; LABORATORY however they are lacking the format of the original re port. SERVICES Caution should be taken when reading/interpreting unfo rmatted reports. Name: ? ETTA BAH ? Accession #: ? [id number] ? : ? 1940 (Age: 74) ??M ? Collect Date: ? 07/03/2015 ? Location: ? [facility] ? Receive Date: ? 07/04/20 15 ? Provider: ABBY DAS MD Copy to: ? Final Pathologic Diagnosis: SKIN OF CONGREGATION, RIGHT, EXCISION: - Basal cell carcinoma, infiltrative [...] the above diagnosi s. Specimen(s) Received: R religious Clinical History: Basal cell carcinoma reexcision Gross [...] e Number [facility] [address] [place] [address] SERVICES documented in this encounter Visit Diagnoses Not on filedocumented in this encounter Care Teams Commercial Litigation Attorney Relationship Specialty Start Date End Date Unknown, Provider, PCP - General 07/03/15 07/05/15 documented as of this encounter
--- OUTSIDE RECORDS SUMMARY | 2022-07-24 09:28 | XMS_ITS | Encounter Summary ---
:1940 Author Organization [facility] Address [address] [place] [address] Care Team Providers Name Role Phone Bobby Das MD Primary Care Provider Reason for Visit Reason Comments Cancer Encounter Details Date Type Department Care Team Description 02/27/2018 Radiation Therapy [facility] Letty Gaitan RN Malignant neoplasm Visit Radiation Oncology [address] [place] [address] ([facility]) (Primary [address] [place], [place] Dx) [place] [id number] Social History Tobacco Use Types Packs/Day Years [...] encounter diagnosis was Malignant neoplasm of prostate ([facility]). Assessment: Assessment Completed By: Janae Gaitan [...] prostate documented in this encounter Care Teams Sleever Relationship Specialty Start Date End Date Bobby Das MD PCP - General 07/06/[address] [place] [address] ,[address] [place] [phone] documented as of this encounter
--- OUTSIDE RECORDS SUMMARY | 2022-07-24 09:28 | XMS_ITS | Encounter Summary ---
:1940 Author Organization [facility] Address [address] [place] [address] Care Team Providers Name Role Phone Bobby Das MD Primary Care Provider Encounter Details Date Type Department Care Team Description 01/08/2018 Procedure visit [facility] Aries Gutierrez Radiation Oncology - IIIMD [address] [address] [address], [place] [phone] (Wo rk) Social History Tobacco Use Types [...] prostate gland. DATE OF SERVICE: 01/08/2018 INDICATIONS: [id number], PSA 12.8 Winifred score 3+4 = 7 [...] documented as of this encounter Care Teams Tool Maker Apprentice Relationship Specialty Start Date End Date Bobby Das MD PCP - General 07/06/[address] [place] [address] ,[address] [place] [address] documented as of this encounter
--- OUTSIDE RECORDS SUMMARY | 2022-07-24 09:28 | XMS_ITS | Encounter Summary ---
:1940 Author Organization [facility] Address [address] [place] [address] Care Team Providers Name Role Phone Bobby Das MD Primary Care Provider Reason for Visit Reason Comments Follow-up Injection Encounter Details Date Type Department Care Team Description 01/05/2018 Office Visit [facility] Erlin José MD Malignant neoplasm of Urology - Main [address] [place] [address] ([facility] ([facility]) (Primary [address] [facility]) [place] [address] Pavilion, [place] [address] (Wo rk) Social History Tobacco [...] Progress Notes Chino José MD - 01/05/2018 8218 EST Chief Complaint: Chief Complaint Patient presents with ??? Follow-up Injection HPI: Koko is a 77 y.o. male with prostate cancer. 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 He previously had [...] Dr. Gutierrez this week See me at [facility] after radiation therapy is complete with [...] mg documented in this encounter Care Teams Scow Derrick Operator Relationship Specialty Start Date End Date Bobby Das MD PCP - General 07/06/[address] [place] [address],[address] [place] [phone] documented as of this encounter
--- OUTSIDE RECORDS SUMMARY | 2022-07-24 09:28 | XMS_ITS | Encounter Summary ---
:1940 Author Organization [facility] Address [address] [place] [address] Care Team Providers Name Role Phone Bobby Das MD Primary Care Provider Encounter Details Date Type Department Care Team Description 10/29/2017 Hospital Encounter [facility]- Devi Unknown, Provider, [facility] [address] [facility] [phone] [place] [address] (Work) [phone] Social History Tobacco Use Types Packs/Day Years Used Date Never Assessed Sex Assigned at Date Recorded Not on file documented as of this encounter Discharge Disposition Disposition Code Departure Means Destination Home or Self Assisted documented in this encounter Plan of Treatment Not on filedocumented as of this encounter Visit Diagnoses Not on filedocumented in this encounter Care Teams Ui Lead Developer Relationship Specialty Start Date End Date Bobby Das MD PCP - General 07/06/[address] [place] [address],[address] [place] [address] documented as of this encounter
--- OUTSIDE RECORDS SUMMARY | 2022-07-24 09:28 | XMS_ITS | Encounter Summary ---
:[address] [facility] Address [address] [place] [address] Care Team Providers Name Role Phone Bobby Das MD Primary Care Provider Reason for Visit Reason Comments Cancer Encounter Details Date Type Department Care Team Description 01/08/2018 Radiation Therapy [facility] Isela Law Ma lignant neoplasm of Visit Radiation Oncology - RN prostat e ([facility]) Main [place] ([facility]) (Primary 111 [facility] Dx) [place] [address] Social History Tobacco Use Types [...] documented in this encounter Care Teams Manager Of Financial Reporting Relationship Specialty Start Date End Date Bobby Das MD PCP - General 07/06/[address] [place] [address],[address] [place] [phone] documented as of this encounter
--- OUTSIDE RECORDS SUMMARY | 2022-07-24 09:28 | XMS_ITS | Clinical Summary ---
:1940 Author Organization [facility] Address [address] [place] [address] Care Team Providers Name Role Phone Bobby [...] Noted Date Malignant neoplasm of prostate ([facility]) 11/19/2017 Cancer Staging: Clinical stage from 11/19: Stage IIB (cT2a, cN0, cM0, PSA: 12.8, Grade Group: 2) - Signed by Delores Gutierrez III, MD on 11/19/2017 Medical History Medical History Date Comments Cancer ([facility]) (HCC) Hyperlipidemia Family History Medical History Relation [...] T ype Group Dates MEDICARE MEDICARE A/B [id number] 2007-Pre [address] edicare GL sent [address] [place] [address] [facility] [id number] 2021-Pre [address] Commercial GL [facility] sent [place], [place] [id number] COMPANY Koko Zamora Personal/Family Self 1940 [address] (Home) [place] [address] Koko Zamora Personal/Family Self 1940 [address] ([place]) [place] [address] Care Teams Whey Department Operator Relationship Specialty Start Date End Date Bobby Das MD PCP - General 07/06/[address] [place] [address],[address] [place] [phone]
--- OUTSIDE RECORDS SUMMARY | 2022-07-24 09:28 | XMS_ITS | Encounter Summary ---
:1940 Author Organization [facility] Address [address] [place] [address] Care Team Providers Name Role Phone Bobby Das MD Primary Care Provider Reason for Visit Reason Comments Other Encounter Details Date Type Department Care Team Description 03/04/2019 Refill [facility] Cancer Center Radiation Adelfo Gutierrez ld Felix III, Other Oncology - Main [facility] [address] [place] [id number] [place] [address] [facility] [address] [place], [place] [address] (Wo rk) Social History [...] documented as of this encounter Care Teams Community Engagement Specialist Relationship Specialty Start Date End Date Bobby Das MD PCP - General 07/06/[address] [place] [address],[address] [place] [phone] documented as of this encounter
--- OUTSIDE RECORDS SUMMARY | 2022-07-24 09:28 | XMS_ITS | Encounter Summary ---
:1940 Author Organization [facility] Address [address] [place] [address] Care Team Providers Name Role Phone Bobby Das MD Primary Care Provider Reason for Visit Reason Onset Date Comments Prostate Cancer 11/20/2017 Encounter Details Date Type Department Care Team Description 11/20/2017 Orders Only [facility] Aries Gutierrez Radiation Oncology - [facility], [address] [address] [address], [place], [place] [address] (Wo rk) Social History Tobacco Use Types [...] on filedocumented in this encounter Care Teams Lift Driver Relationship Specialty Start Date End Date Bobby Das MD PCP - General 07/06/[address] [place] [address] ,[address] [place] [address] documented as of this encounter
--- OUTSIDE RECORDS SUMMARY | 2022-07-24 09:28 | XMS_ITS | Encounter Summary ---
:1940 Author Organization [facility] Address [address] [place] [address] Care Team Providers Name Role Phone Bobby Das MD Primary Care Provider Reason for Referral Laboratory Services (Routine) - Closed Specialty Diagnoses / Procedures Referred By Contact Refer red To Contact Diagnoses Malignant neoplasm of prostate ([facility]) ([facility]) Aries Gutierrez III, Procedures PSA TOTAL, DIAGNOSTIC MD [address] [place] [phone] Referral ID Status Reason Start Date Expiration Date Visits Requ ested Visits Authorized [id number] Closed 07/11/2019 1 1 Encounter Details Date Type Department Care Team Description 01/08/2019 Documentation Visit [facility] Cancer Center Aries Gutierrez Malignant neoplasm Radiation Oncology Felix EAST MD of prostate - [address] ([facility]) (Primary 111 [facility] Dx) [facility], [address] [place] [address] [address] Social History Tobacco Use Types [...] Diagnoses Diagnosis Malignant neoplasm of prostate ([facility]) (HCC) - Primary Malignant neoplasm of prostate documented in this encounter Care Teams Intelligence Group Supervisor Relationship Specialty Start Date End Date Bobby Das MD PCP - General 07/06/[address] [place] [address],[address] [place] [phone] documented as of this encounter
--- OUTSIDE RECORDS SUMMARY | 2022-07-24 09:28 | XMS_ITS | Encounter Summary ---
:1940 Author Organization [facility] Address [address] [place] [address] Care Team Providers Name Role Phone Bobby Das MD Primary Care Provider Encounter Details Date Type Department Care Team Description 02/25/2018 Documentation Visit [facility] Adama Vargas RN Radiation Oncology - [address] [place] [address] [place] [address] Social History Tobacco Use Types Packs/Day Years Used Date Current Every Day Smoker Smokeless Tobacco: Never Used Sex Assigned at Date Recorded Not on file documented as of this encounter Progress Notes Lynn Vargas RN - 02/25/2018 8733 EDT Koko Zamora requested to be seen [...] filedocumented in this encounter Care Teams Radar Scientist Relationship Specialty Start Date End Date Bobby Das MD PCP - General 07/06/[address] [place] [address],[address] [place] [address] documented as of this encounter
--- OUTSIDE RECORDS SUMMARY | 2022-07-24 09:28 | XMS_ITS | Encounter Summary ---
:1940 Author Organization [facility] Address [address] [place] [address] Care Team Providers Name Role Phone Bobby Das MD Primary Care Provider Encounter Details Date Type Department Care Team Description 10/29/2017 Results Only [facility] Erlin José MD Urology - [address] [address] [address], [place] [phone] (Wo rk) Social History Tobacco Use Types [...] (10/29/2017 8:21 EST) Pathology SURGICAL PATHOLOGY REPORT [facility] Report: Reports generated via electronic interface conta in original data; CENTER LABORATORY however they are lacking the format of the original re port. SERVICES Caution should be taken when reading/interpreting unfo rmatted reports. Name: ? ETTA BAH ? Accession #: ? [id number] ? : ? 1940 (Age: 77) ??M [...] to 6: Prognostic Grad e Group I [place] score 3+4=7: Prognostic Grade Group II [place] score 4+3=7: Prognostic Grade Group III Winifred score 8: Prognostic Grade Group IV Winifred score 9-10: Prognostic Grade Group V References for Prognostic Grade Groups: J Clin Hercules 2012;30:0515-5267 Joey CASTAÑEDA. The Winifred Grading System (A Comple te Guide for Pathologists and Clinicians), LWW, 2013 Serg PM, Shell PW, Edward AW, Joey JI. Progno stic Winifred Grade Grouping: Data based on the modified [place] scoring s yste. BJU Int 2013;111:753-760 A. [...] leason pattern: ? Grade 3 ?- ??Secondary [place] pattern: ? Grade 3 ?- ??Total Gle [...] of 2 cores. ? - Global tumor [place] score: ?3 + 4 = 7 (30% [...] Organization Address City/State/ZIP Code Phon e Number [facility] [address] [place] [address] SERVICES documented in this encounter Visit Diagnoses Not on filedocumented in this encounter Care Teams Student Loan Counselor Relationship Specialty Start Date End Date Bobby Das MD PCP - General 07/06/[address] [place] [address] ,[address] [place] [phone] documented as of this encounter
--- OUTSIDE RECORDS SUMMARY | 2022-07-24 09:28 | XMS_ITS | Encounter Summary ---
:1940 Author Organization [facility] Address [address] [place] [address] Care Team Providers Name Role Phone Bobby Das MD Primary Care Provider Reason for Visit Reason Comments Follow-up Encounter Details Date Type Department Care Team Description 12/02/2017 Office Visit [facility] Erlin José MD Malignant neoplasm of Urology - [address] ([facility] ([facility]) (Primary 111 [facility], [facility]) [place] [address] [address], [place] [address] (Wo rk) Social History Tobacco [...] Progress Notes Chino José MD - 12/02/2017 4102 EST Chief Complaint: Chief Complaint Patient presents with ??? Follow-up HPI: Koko is a 77 y.o. male with prostate cancer. I originally saw the patient and [facility] and diagnosed him with [place] 3+4 prostate cancer associated with a PSA of 12.8. He underwent a bone scan for staging that came back negative for metastatic disease. He is seeing me today at [facility] for a Lupron injection. He started [...] desire to have sex ). Some termite helper hormonal therapy is associated with the loss [...] 12/02 documented in this encounter Care Teams Clinic Coordinator Relationship Specialty Start Date End Date Bobby Das MD PCP - General 07/06/[address] [place] [address],[address] [place] [phone] documented as of this encounter
--- OUTSIDE RECORDS SUMMARY | 2022-07-24 09:28 | XMS_ITS | Encounter Summary ---
:1940 Author Organization [facility] Address [address] [place] [address] Care Team Providers Name Role Phone Abby Das MD Primary Care Provider Encounter Details Date Type Department Care Team Description 04/22/2018 Results Only [facility] Abby Das MD [phone] [place] [address],[address] [place], [place] [phone] (Wo rk) Social History Tobacco Use Types Packs/Day Years Used Date Current Every Day Smoker Smokeless Tobacco: Never Used Sex Assigned at Date Recorded Not on file documented as of this encounter Plan of Treatment Not on filedocumented as of this encounter Procedures Procedure Name Priority Date/Time Associated Diagnosis Comme [facility] SURGICAL PATHOLOGY Routine 04/22/2018 8:40 EDT Re sults for this procedure are i n the results section. documented in this encounter Results SURGICAL PATHOLOGY (04/22/2018 8:40 EDT) Pathology Report: SURGICAL PATHOLOGY REPORT [facility] Reports generated via electronic interface contain abram ginal data; LABORATORY however they are lacking the format of the original re port. SERVICES Caution should be taken when reading/interpreting unfo rmatted reports. Name: ? ETTA BAH ? Accession #: ? [id number] ? : ? 1940 (Age: 77) ??M [...] Organization Address City/State/ZIP Code Phon e Number [facility] [address] [place] [address] SERVICES documented in this encounter Visit Diagnoses Not on filedocumented in this encounter Care Teams Document Control Manager Relationship Specialty Start Date End Date Abby Das MD PCP - General 07/06/[address] [place] [address] ,[address] [place] [phone] documented as of this encounter
--- OUTSIDE RECORDS SUMMARY | 2022-07-24 09:28 | XMS_ITS | Encounter Summary ---
:1940 Author Organization [facility] Address [address] [place] [address] Care Team Providers Name Role Phone Bobby Das MD Primary Care Provider Reason for Visit Reason Comments Cancer Encounter Details Date Type Department Care Team Description 02/06/2018 Radiation Therapy [facility] Lynn Vargas RN Malignant neoplasm Visit Radiation Oncology 111 [facility] ([facility] ([facility]) [address] [place] [address] (Primary Dx) [place] [phone] Social History Tobacco Use Types Packs/Day Years [...] was Malignant neoplasm of prostate ([facility]). Assessment: Assessment Completed By: [...] Visit Diagnoses Diagnosis Malignant neoplasm of prostate ([facility]) (HCC) - Primary Malignant neoplasm of prostate documented in this encounter Care Teams Merchandise Associate Relationship Specialty Start Date End Date Bobby Das MD PCP - General 07/06/[address] [place] [address],[address] [place] [phone] documented as of this encounter
--- OUTSIDE RECORDS SUMMARY | 2022-07-24 09:28 | XMS_ITS | Encounter Summary ---
:1940 Author Organization [facility] Address [address] [place] [address] Care Team Providers Name Role Phone Bobby Das MD Primary Care Provider Reason for Visit Reason Comments Cancer Encounter Details Date Type Department Care Team Description 02/16/2018 Radiation Therapy [facility] Isela Law Ma lignant neoplasm of Visit Radiation Oncology - RN prostleonid e ([facility]) Main [place] (Primary Dx) [address] [place] [address] Social History Tobacco Use Types Packs/Day [...] encounter diagnosis was Malignant neoplasm of prostate ([facility]). Assessment: Assessment Completed By: Isela [...] prostate documented in this encounter Care Teams Topographical Drafter Relationship Specialty Start Date End Date Bobby Das MD PCP - General 07/06/[address] [place] [address],[address] [place] [phone] documented as of this encounter
--- OUTSIDE RECORDS SUMMARY | 2022-07-24 09:28 | XMS_ITS | Encounter Summary ---
:1940 Author Organization [facility] Address [address] [place] [address] Care Team Providers Name Role Phone Bobby Das MD Primary Care Provider Reason for Visit Reason Onset Date Comments Follow-up 03/06/2018 Encounter Details Date Type Department Care Team Description 03/06/2018 Telephone [facility] Theron Rojas RN Follow-up Radiation Oncology - Main [address] [place] [address] [place] [address] Social History Tobacco Use Types Packs/Day Years [...] filedocumented in this encounter Care Teams Sand Caster Apprentice Relationship Specialty Start Date End Date Bobby Das MD PCP - General 07/06/[address] [place] [address],[address] [place] [phone] documented as of this encounter
--- OUTSIDE RECORDS SUMMARY | 2022-07-24 09:28 | XMS_ITS | Encounter Summary ---
:1940 Author Organization [facility] Address [address] [place] [address] Care Team Providers Name Role Phone Bobby Das MD Primary Care Provider Encounter Details Date Type Department Care Team Description 01/16/2018 Documentation Visit [facility] Santhosh [place] Radiation Oncology - Main [address] [phone] Social History Tobacco Use Types Packs/Day Years Used Date Current Every Day Smoker Smokeless Tobacco: Never Used Sex Assigned at Date Recorded Not on file documented as of this encounter Progress Notes Santhosh [place] - 01/16/2018 2809 EST SOCIAL WORK ASSESSMENT: Amount of Distress: 0 Practical Problems: None Family Problems: None Emotional Problems: None Physical Problems: None Spiritual/Synagogue Concerns: No Other Problems: Social Work Assessment: [...] Prostate Cancer Living Arrangements: Pt lives in [place], [place] with his . They operate a [...] social work as needed. ASH Antonio phone [phone] pager [phone] documented in this encounter Plan of Treatment Not on filedocumented as of this encounter Visit Diagnoses Not on filedocumented in this encounter Care Teams Instructor Extension Work Relationship Specialty Start Date End Date Bobyb Das MD PCP - General 07/06/[address] [place] [address],[address] [place] [phone] documented as of this encounter
--- OUTSIDE RECORDS SUMMARY | 2022-07-24 09:28 | XMS_ITS | Encounter Summary ---
:1940 Author Organization [facility] Address [address] [place] [address] Care Team Providers Name Role Phone Bobby Das MD Primary Care Provider Encounter Details Date Type Department Care Team Description 07/16/2019 Hospital Encounter [facility] - Dayne Gutierrez [facility] III, MD [phone] [place] [address] [facility] [address] [place] [address] (Wo rk) Social History Tobacco [...] filedocumented in this encounter Care Teams Hand Printed Circuit Board Assembler Relationship Specialty Start Date End Date Bobby Das MD PCP - General 07/06/[address] [place] [address] ,[address] [place] [phone] documented as of this encounter
--- OUTSIDE RECORDS SUMMARY | 2022-07-24 09:28 | XMS_ITS | Encounter Summary ---
:1940 Author Organization [facility] Address [address] [place] [address] Care Team Providers Name Role Phone Bobby Das MD Primary Care Provider Encounter Details Date Type Department Care Team Description 01/08/2019 Orders Only [facility] Cancer [place] Aries Gutierrez neoplasm of Radiation Oncology - Felix EAST MD prostate ([facility]) [address] (Primary Dx) [address] [place] [address] [facility] [phone] [facility] [address] [place] [address] (Wo rk) Social History Tobacco Use Types Packs/Day Years Used Date Current Every Day Smoker Smokeless Tobacco: Never Used Sex Assigned at Date Recorded Not on file documented as of this encounter Plan of Treatment Not on filedocumented as of this encounter Results PSA TOTAL, DIAGNOSTIC (07/16/2019 9:30 EDT) PSA 0.1 0 - 6.5 ng/ml [facility] Comment: LABORATORY SERVICES Serum PSA concentration should not be interpreted as absolute evidence for the presence or absence of malignant disease. Assayed utilizing Siemens ([employer]) chemiluminescent technology. ??Values obtained by using different assay methods cannot be used interchangeably. Specimen Blood specimen (specimen) - Blood Performing Organization Address City/State/ZIP Code Phon e Number [facility] [address] [place] [address] SERVICES documented in this encounter Visit Diagnoses Diagnosis Malignant neoplasm of prostate ([facility]) (HCC) - Primary Malignant neoplasm of prostate documented in this encounter Care Teams Loan Associate Relationship Specialty Start Date End Date Bobby Das MD PCP - General 07/06/[address] [place] [address],[address] [place] [phone] documented as of this encounter
--- OUTSIDE RECORDS SUMMARY | 2022-07-24 09:28 | XMS_ITS | Encounter Summary ---
:1940 Author Organization [facility] Address [address] [place] [address] Care Team Providers Name Role Phone Bobby Das MD Primary Care Provider Reason for Visit Reason Onset Date Comments Medication Management 11/21/2017 Encounter Details Date Type Department Care Team Description 11/21/2017 Orders Only [facility] Radiation De Law RN Oncology - [address] [phone] Social History Tobacco Use Types Packs/Day Years [...] on filedocumented in this encounter Care Teams Engineering Technical Specialist Relationship Specialty Start Date End Date Bobby Das MD PCP - General 07/06/[address] [place] [address] ,[address] [place] [phone] documented as of this encounter
--- OUTSIDE RECORDS SUMMARY | 2022-07-24 09:28 | XMS_ITS | Encounter Summary ---
:1940 Author Organization [facility] Address [address] [place] [address] Care Team Providers Name Role Phone Bobby Das MD Primary Care Provider Encounter Details Date Type Department Care Team Description 04/12/2021 Lab Requisition [facility] Outr Resulting Lab, Pathology & Laboratory Provider [facility] [address] [place], [place] [address] Social History Tobacco Use Types Packs/Day Years [...] nature Testosterone 269 229 - 902 ng/dL [facility] Specimen Blood - Venous blood (substance) Narrative [facility] - 04/12/2021 22:19 EDT The results of this assay can be falsley elevated due to the consumption of Biotin. Performing Organization Address City/State/ZIP Code Phon e Number [facility] [address] [place] [address] SERVICES documented in this encounter Visit Diagnoses Not on filedocumented in this encounter Care Teams Lead Mechanical Engineer Relationship Specialty Start Date End Date Bobby Das MD PCP - General 07/06/[address] [place] [address] ,[address] [place] [phone] documented as of this encounter
--- OUTSIDE RECORDS SUMMARY | 2022-07-24 09:28 | XMS_ITS | Encounter Summary ---
:1940 Author Organization [facility] Address [address] [place] [address] Care Team Providers Name Role Phone Bobby Das MD Primary Care Provider Reason for Visit Reason Comments Cancer Encounter Details Date Type Department Care Team Description 01/08/[address] [facility] Isela Law Ma lignant neoplasm of Visit Radiation Oncology - RN prostat e ([facility] Main [place] ([facility]) (Primary [address]x) [place] [address] Social History Tobacco Use Types [...] Assessment Completed By: Isela Law RN (01/08/18 1321) Patient Education Topic: Method: Handout and Verbal [...] and get free services/meds from afar. Referrals core worker: Yes (Shadi will meet with Santhosh Cosby MSW next week to review the DT and supportive services. ) Services: Kylee Proctor: No Other: Subjective Note: General: Koko and his Ursula are here for the treatment teaching session post Fiducials being placed. Shadi and his run a [employer] in [place]. They are concerned that he might be [...] prostate documented in this encounter Care Teams Consulting Psychiatrist Relationship Specialty Start Date End Date Bobby Das MD PCP - General 07/06/[address] [place] [address] ,[address] [place] [address] documented as of this encounter
--- OUTSIDE RECORDS SUMMARY | 2022-07-24 09:28 | XMS_ITS | Encounter Summary ---
:1940 Author Organization [facility] Address [address] [place] [address] Care Team Providers Name Role Phone Bobby Das MD Primary Care Provider Encounter Details Date Type Department Care Team Description 02/08/2018 Hospital Encounter [facility] Aries Gutierrez Radiation Oncology - III, [facility] 111 [facility] [address] [place] [address] Pavilion, [place] [address] (Wo rk) Social History Tobacco Use Types [...] on filedocumented in this encounter Care Teams Leave Specialist Relationship Specialty Start Date End Date Bobby Das MD PCP - General 07/06/[address] [place] [address],[address] [place] [phone] documented as of this encounter
--- OUTSIDE RECORDS SUMMARY | 2022-07-24 09:28 | XMS_ITS | Encounter Summary ---
:[address] [facility] Address [address] [place] [address] Care Team Providers Name Role Phone Bobby Das MD Primary Care Provider Reason for Visit Reason Comments Cancer Encounter Details Date Type Department Care Team Description 02/13/2018 Radiation Therapy [facility] Isela Law Ma lignant neoplasm of Visit Radiation Oncology - RN prostat e ([facility]) Main [place] (Primary Dx) [address] [place] [address] Social History Tobacco Use Types Packs/Day [...] encounter diagnosis was Malignant neoplasm of prostate ([facility]). Assessment: Assessment Completed By: Isela [...] prostate documented in this encounter Care Teams Lab Aid Relationship Specialty Start Date End Date Bobby Das MD PCP - General 07/06/[address] [place] [address] ,[address] [place] [address] documented as of this encounter
--- OUTSIDE RECORDS SUMMARY | 2022-07-24 09:28 | XMS_ITS | Encounter Summary ---
:1940 Author Organization [facility] Address [address] [place] [address] Care Team Providers Name Role Phone Bobby Das MD Primary Care Provider Reason for Visit Reason Comments Prostate Cancer Encounter Details Date Type Department Care Team Description 02/17/2018 Radiation Therapy [facility] Aries Gutierrez alignant neoplasm Visit Radiation Oncology Felix EAST MD of [facility] - [address] ([facility]) (Primary [address] [facility] Dx) [facility], [address] [place] [address] [address] [place] [address] Social History Tobacco Use Types Packs/Day Years Used Date Current Every Day Smoker Smokeless Tobacco: Never Used Sex Assigned at Date Recorded Not on file documented as of this encounter Progress Notes Delores Gutierrez III, MD - 02/17/2018 1117 EDT On Treatment Visit Assessment: Koko Zamora is currently receiving radiation therapy treatment and is being seen today for his weekly on treatment visit. The encounter diagnosis was Malignant neoplasm of prostate ([facility]). Assessment: Assessment Completed By: Felix Gutierrez MD (02/17/18 4300) Radiation Therapy: Cumulative RT Dose 3600 cGy [...] Changes: None Sj Gutierrez MD Radiation Oncology [phone] (office) [phone] (pager) documented in this encounter Plan of Treatment Not on filedocumented as of this encounter Visit Diagnoses Diagnosis Malignant neoplasm of prostate (HCC-CMS) (HCC) - Primary Malignant neoplasm of prostate documented in this encounter Care Teams Clinical Services Assistant Relationship Specialty Start Date End Date Bobby Das MD PCP - General 07/06/[address] [place] [address] ,[address] [place] [address] documented as of this encounter
--- OUTSIDE RECORDS SUMMARY | 2022-07-24 09:28 | XMS_ITS | Encounter Summary ---
:1940 Author Organization [facility] Address [address] [place] [address] Care Team Providers Name Role Phone Bobby Das MD Primary Care Provider Reason for Visit Reason Onset Date Comments Follow-up 02/24/2018 Appointment Related 02/24/2018 scheduled appt w/ nu rsing for Lupron injection on 04/06 Encounter Details Date Type Department Care Team Description 02/24/2018 Telephone [facility] Ama Corea, Follow -up; Appointment Urology - James campo RN Related (scheduled appt [facility] w/ [place] [address] injection on 04/06) [phone] Social History Tobacco Use Types Packs/Day Years Used Date Current Every Day Smoker Smokeless Tobacco: Never Used Sex Assigned at Date Recorded Not on file documented as of this encounter Miscellaneous Notes Telephone Encounter - Mague Crisostomo - 02/25/2018 1044 EDT scheduled appt w/ nursing for Lupron injection on 04/06; pt prefers it at the [place] office Telephone Encounter - Ama Corea, RN [...] in this encounter Care Teams Manager Of Business Relationship Specialty Start Date End Date Bobby Das MD PCP - General 07/06/[address] [place] [address],[address] [place] [address] documented as of this encounter
--- OUTSIDE RECORDS SUMMARY | 2022-07-24 09:28 | XMS_ITS | Encounter Summary ---
:1940 Author Organization [facility] Address [address] [place] [address] Care Team Providers Name Role Phone Bobby Das MD Primary Care Provider Reason for Visit Reason Onset Date Comments Follow-up 01/12/2018 Encounter Details Date Type Department Care Team Description 01/12/2018 Telephone [facility] Radiation De Law RN Follow-up Oncology - [address] [address] Social History Tobacco Use Types Packs/Day Years Used Date Current Every Day Smoker Smokeless Tobacco: Never Used Sex Assigned at Date Recorded Not on file documented as of this encounter Miscellaneous Notes Telephone Encounter - Isela Law RN - 01/12/2018 2524 EST This is a planned post procedure [...] on filedocumented in this encounter Care Teams Derrick Worker Relationship Specialty Start Date End Date Bobby Das MD PCP - General 07/06/[address] [place] [address],[address] [place] [address] documented as of this encounter
--- OUTSIDE RECORDS SUMMARY | 2022-07-24 09:28 | XMS_ITS | Encounter Summary ---
:1940 Author Organization [facility] Address [address] [place] [address] Care Team Providers Name Role Phone Bobby Das MD Primary Care Provider Encounter Details Date Type Department Care Team Description 07/16/2019 Phlebotomy Only [facility] Pocketbook Maker, Eboni barbosa neoplasm - [facility] Outpatient of prostate 111 [facility] ([facility]) (Primary [place], [place] Dx) [address] Social History Tobacco Use [...] DIAGNOSTIC of prostate procedure are i n ([facility]) the results section. documented in this encounter Results PSA TOTAL, DIAGNOSTIC (07/16/2019 9:30 EDT) PSA 0.1 0 - 6.5 ng/ml [facility] Comment: LABORATORY SERVICES Serum PSA concentration should not be interpreted as absolute evidence for the presence or absence of malignant disease. Assayed utilizing Siemens ([employer]) chemiluminescent technology. ??Values obtained by using different assay methods cannot be used interchangeably. Specimen Blood specimen (specimen) - Blood Performing Organization Address City/State/ZIP Code Phon e Number [facility] LABORATORY [address] [place] [address] SERVICES documented in this encounter Visit Diagnoses Diagnosis Malignant neoplasm of prostate ([facility]) (HCC) - Primary Malignant neoplasm of prostate documented in this encounter Orders Lab Orders Without Results Count Last Ordered Date st Ordered Date PSA TOTAL, DIAGNOSTIC 1 07/16/2019 documented in this encounter Care Teams Leather Grader Relationship Specialty Start Date End Date Bobby Das MD PCP - General 07/06/[address] [place] [address],[address] [place] [address] documented as of this encounter
--- OUTSIDE RECORDS SUMMARY | 2022-07-24 09:28 | XMS_ITS | Encounter Summary ---
:1940 Author Organization [facility] Address [address] [place] [address] Care Team Providers Name Role Phone Bobby Das MD Primary Care Provider Encounter Details Date Type Department Care Team Description 03/04/2018 Documentation Visit [facility] Aries Gutierrez Radiation Oncology - III, [address] [address] [address], [place] [phone] (Wo rk) Social History Tobacco Use Types Packs/Day Years Used Date Current Every Day Smoker Smokeless Tobacco: Never Used Sex Assigned at Date Recorded Not on file documented as of this encounter Miscellaneous Notes Treatment Summary - Delores Gutierrez III, MD - 03/04/2018 1339 EDT Images from the original note were not included. RADIATION ONCOLOGY TREATMENT SUMMARY SITE, HISTOPATHOLOGY AND STAGE: [id number], PSA 12.8 [place] score 3+4 = 7 adenocarcinoma prostate. He [...] Dr. José. Sj Gutierrez MD Radiation Oncology [phone] (office) [phone] (pager) This note has been prepared with voice recognition software. Please excuse coal briquette machine operator errors. documented in this encounter Plan of Treatment Not on filedocumented as of this encounter Visit Diagnoses Not on filedocumented in this encounter Care Teams Gis Web Developer Relationship Specialty Start Date End Date Bobby Das MD PCP - General 07/06/[address] [place] [address],[address] [place] [address] documented as of this encounter
--- OUTSIDE RECORDS SUMMARY | 2022-07-24 09:28 | XMS_ITS | Encounter Summary ---
:1940 Author Organization [facility] Address [address] [place] [address] Care Team Providers Name Role Phone Bobby Das MD Primary Care Provider Reason for Visit Reason Comments Prostate Cancer Follow up Encounter Details Date Type Department Care Team Description 07/16/2019 Office Visit [facility] Aries Gutierrez neoplasm of Radiation Oncology - Felix EAST MD prostate ([facility]) Main [address] (Primary Dx) [address] [place] [id number] [place] [address], [place] [phone] [facility] [address] [place] [address] (Wo rk) Social History Tobacco [...] DATE OF SERVICE: 07/16/2019 DIAGNOSIS AND STAGE: [id number], PSA 12.8 [place] score 3+4 = 7 [...] this point. He is being evaluated at [facility] next week for possible tuboplasty. With [...] prepared with voice recognition software. Please excuse wire drawing machine tender errors. documented in this encounter Plan of [...] ORAL) added in this encounter Care Teams Oil Expeller Operator Relationship Specialty Start Date End Date Bobby Das MD PCP - General 07/06/[address] [place] [address],[address] [place] [address] documented as of this encounter
--- OUTSIDE RECORDS SUMMARY | 2022-07-24 09:28 | XMS_ITS | Encounter Summary ---
:[address] [facility] Address [address] [place] [address] Care Team Providers Name Role Phone Bobby Das MD Primary Care Provider Reason for Visit Reason Onset Date Comments Diagnostic Imaging Report 11/25/2017 Encounter Details Date Type Department Care Team Description 11/25/2017 Telephone [facility] Lynn Vargas RN Diagnostic Imaging Radiation Oncology - [address] [place] [address] Report [place], [place] [phone] [place] [address] Social History Tobacco Use Types Packs/Day Years [...] on filedocumented in this encounter Care Teams Candle Cutter Relationship Specialty Start Date End Date Bobby Das MD PCP - General 07/06/[address] [place] [address] ,[address] [place] [address] documented as of this encounter
--- OUTSIDE RECORDS SUMMARY | 2022-07-24 09:28 | XMS_ITS | Encounter Summary ---
:1940 Author Organization [facility] Address [address] [place] [address] Care Team Providers Name Role Phone Bobby Das MD Primary Care Provider Reason for Visit Reason Onset Date Comments Appointment Related 03/19/2018 Encounter Details Date Type Department Care Team Description 03/19/[address] [facility] Dominique Mirza, [place] ointment Related Urology - James campo RN [address] [place] [address] Social History Tobacco Use Types [...] there. ill plan to see him at [facility]. Tc to pt to advise he contact [facility] and be sure appt has been scheduled [...] so, can the pt be seen at [facility] as originally suggested in 's 01/05 progress note. Will call patient to let him know if he needs to f/u with and if so, can he be seen at [facility]. documented in this encounter Plan of Treatment Not on filedocumented as of this encounter Visit Diagnoses Not on filedocumented in this encounter Care Teams Transmission Maintenance Supervisor Relationship Specialty Start Date End Date Bobby Das MD PCP - General 07/06/[address] [place] [address],[address] [place] [address] documented as of this encounter
--- OUTSIDE RECORDS SUMMARY | 2022-07-24 09:28 | XMS_ITS | Encounter Summary ---
:1940 Author Organization [facility] Address [address] [place] [address] Care Team Providers Name Role Phone Bobby Das MD Primary Care Provider Reason for Visit Reason Onset Date Comments Prostate Cancer 06/03/2018 Encounter Details Date Type Department Care Team Description 06/03/2018 Telephone [facility] Aries Gutierrez Cancer Radiation Oncology - III, [address] [address] [address], [place] [address] (Wo rk) Social History Tobacco Use Types Packs/Day Years Used Date Current Every Day Smoker Smokeless Tobacco: Never Used Sex Assigned at Date Recorded Not on file documented as of this encounter Miscellaneous Notes Telephone Encounter - Delores Gutierrez III, MD - 06/03/2018 2063 EDT RADIATION ONCOLOGY I spoke with Mr. Zamora by phone today. He tells me he is unable to make it to [place] for follow-up visits with me as he [...] office if he will be in the [place] area as I would be happyto move my schedule as needed to see him for follow-up. I did strongly encourage him to continue follow-up with Dr. José and asked him to call them to arrange an appointment. He canceled his next scheduled follow-up appointment with me. Sj Gutierrez MD Radiation Oncology [phone] (office) [phone] (pager) This note has been prepared with voice recognition software. Please excuse on site wastewater systems technician errors. documented in this encounter Plan of Treatment Not on filedocumented as of this encounter Visit Diagnoses Not on filedocumented in this encounter Care Teams Water Trainer Relationship Specialty Start Date End Date Bobby Das MD PCP - General 07/06/[address] [place] [address],[address] [place] [address] documented as of this encounter
--- OUTSIDE RECORDS SUMMARY | 2022-07-24 09:28 | XMS_ITS | Encounter Summary ---
:1940 Author Organization [facility] Address [address] [place] [address] Care Team Providers Name Role Phone Bobby Das MD Primary Care Provider Encounter Details Date Type Department Care Team Description 11/20/2017 Results Only Imaging [facility]- Unknown, [facility] ProviderMD [phone] Social History Tobacco Use Types Packs/Day Years [...] on filedocumented in this encounter Care Teams Soils Engineer Relationship Specialty Start Date End Date Bobby Das MD PCP - General 07/06/[address] [place] [address],[address] [place] [address] documented as of this encounter
--- OUTSIDE RECORDS SUMMARY | 2022-07-24 09:28 | XMS_ITS | Encounter Summary ---
:[address] [facility] Address [address] [place] [address] Care Team Providers Name Role Phone Bobby Das MD Primary Care Provider Encounter Details Date Type Department Care Team Description 08/03/2020 Lab Requisition [facility] Outr Resulting Lab, Pathology & Laboratory Provider [facility] [address] [place], [place] [id number] Social History Tobacco Use Types Packs/Day Years [...] (08/03/2020 12:22 EDT) COVID-19 rt-PCR NEGATIVE Negative [facility] Result Comment: LABORATORY 2019-novel Coronavirus [...] Address City/State/ZIP Code Phon e Number [facility] [place] [place] COVID-19 TESTING (08/03/2020 12:22 EDT) Pathologist [facility] COVID-19 rt-PCR NEGATIVE Negative [facility] Result Comment: LABORATORY 2019-novel Coronavirus (2019 [...] Administration's Emergency Use Authorization. Performing Lab [facility] LABORATORY SERVICES Specimen Swab Performing Organization Address City/State/ZIP Code Phon e Number [facility] [address] [place] [address] SERVICES [facility] [place] documented in this encounter Visit Diagnoses Not on filedocumented in this encounter Care Teams Director Operations Relationship Specialty Start Date End Date Bobby Das MD PCP - General 07/06/[address] [place] [address] ,[address] [place] [address] documented as of this encounter
--- OUTSIDE RECORDS SUMMARY | 2022-07-24 09:28 | XMS_ITS | Encounter Summary ---
:1940 Author Organization [facility] Address [address] [place] [address] Care Team Providers Name Role Phone Bobby Das MD Primary Care Provider Reason for Visit Reason Onset Date Comments Medication Management 02/16/2018 Encounter Details Date Type Department Care Team Description 02/16/2018 Orders Only [facility] Radiation De Law circuits engineer - [address] [address] Social History Tobacco Use Types Packs/Day Years [...] filedocumented in this encounter Care Teams Clinical Project Leader Relationship Specialty Start Date End Date Bobby Das MD PCP - General 07/06/[address] [place] [address],[address] [place] [address] documented as of this encounter
--- OUTSIDE RECORDS SUMMARY | 2022-07-24 09:28 | XMS_ITS | Encounter Summary ---
:1940 Author Organization [facility] Address [address] [place] [address] Care Team Providers Name Role Phone Bobby Das MD Primary Care Provider Reason for Visit Reason Comments Prostate Cancer Encounter Details Date Type Department Care Team Description 02/23/2018 Radiation Therapy [facility] Aries Gutierrez alignant neoplasm Visit Radiation Oncology Felix EAST MD of [facility] - [address] ([facility]) (Primary [address] [place] [address] Dx) [facility], [address] [place] [address] [address] [place] [address] Social History Tobacco Use Types [...] encounter diagnosis was Malignant neoplasm of prostate ([facility]). Assessment: Assessment Completed By: Felix Gutierrez MD (02/23/18 4474) Radiation Therapy: Cumulative RT Dose 4800 cGy [...] Dr. King Sj Gutierrez MD Radiation Oncology [phone] (office) [phone] (pager) documented in this encounter Plan of Treatment Not on filedocumented as of this encounter Visit Diagnoses Diagnosis Malignant neoplasm of prostate (HCC-CMS) (HCC) - Primary Malignant neoplasm of prostate documented in this encounter Care Teams Certified Medical Transcriptionist Relationship Specialty Start Date End Date Bobby Das MD PCP - General 07/06/[address] [place] [address] ,[address] [place] [address] documented as of this encounter
--- OUTSIDE RECORDS SUMMARY | 2022-07-26 10:51 | XMS_ITS | Encounter Summary ---
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 Loretta Cohen MD Leboeuf, Matthew R, MD [facility] [address] [place] [address] [place] [address] Fax: Referral ID Status Reason Start Date Expiration Visits Visits Date Requested Authorized [id number] Authorized Consult, 06/17/2022 06/17/2023 1 1 Test & Treat Encounter Details Date Type Department Care Team Description 06/17/2022 Orders Only Dermatology at [facility] Basal cell carcinoma Nicol CARCAMO (BCC) of right [address] [place] [address] DERMATOLOGY [place], [place] [address] Social History Tobacco Use Types [...] Collins MD [facility] GASTROENTEROLOGY DEPT [place], [place] [address] (Wo rk) 09/05/2022 Appointment Cardiology Trinity Reid MD [facility] CARDIOLOGY [place], [place] [address] (Wo rk) 09/05/2022 Office Visit Cardiology Trinity Reid MD [facility] CARDIOLOGY [place], [place] [address] (Wo rk) Scheduled Referrals Name Type Priority Associated Order Schedule Diagnoses Referral to Outpatient Referral Routine Basal cell Ordered: Dermatology carcinoma (BCC) of 2 right forehead documented as of this encounter Visit Diagnoses Diagnosis Basal cell carcinoma (BCC) of right fore head documented in this encounter Care Teams Supervisor Alteration Workroom Relationship Specialty Start Date End Date Bobby Das MD PCP - General 10/02/[address] [place] [address] [place] [address] documented as of this encounter
--- OUTSIDE RECORDS SUMMARY | 2022-07-26 10:51 | XMS_ITS | Encounter Summary ---
:1940 Author Organization [facility] Address [facility] [place] [address] Care Team Providers Name Role Phone Bobby Das MD Primary Care Provider Encounter Details Date Type Department Care Team Description 06/24/2022 Telephone Gastroenterology at [facility] [place] August [place] [address] GASTROENTEROLOGY DEPT [phone] [place], [place] [address] (Wo rk) Social History Tobacco [...] and no diverticulosis. This was done at [facility]. HgB 8.6 today. There has [...] MD [facility] GASTROENTEROLOGY DEPT [place], [place] [address] (Wo rk) 09/05/2022 Appointment Cardiology Trinity Reid MD [facility] CARDIOLOGY [place], [place] [address] (Wo rk) 09/05/2022 Office Visit Cardiology Trinity Reid MD [facility] CARDIOLOGY [place], [place] [address] (Wo rk) documented as of this encounter Visit Diagnoses Not on filedocumented in this encounter Care Teams Engine Repairer Service Relationship Specialty Start Date End Date Bobby Das MD PCP - General 10/02/[address] [place] [address] [place] [phone] documented as of this encounter
--- OUTSIDE RECORDS SUMMARY | 2022-07-26 10:51 | XMS_ITS | Encounter Summary ---
:1940 Author Organization [facility] [place] [address] Care Team Providers Name Role Phone Bobby Das MD Primary Care Provider Encounter Details Date Type Department Care Team Description 06/23/2022 Telephone Gastroenterology at [facility] Alan August MD [facility] [place] [phone] GASTROENTEROLOGY DEPT [phone] [place], [place] [address] (Wo rk) Social History Tobacco [...] Date: 06/23/2022 Time: 2:27 AM Referring Location: [facility] Referring Provider: Shahram Urena DC HPI: [...] MD [facility] GASTROENTEROLOGY DEPT [place], [place] [address] ( rk) 09/05/2022 Appointment Cardiology Trinity Reid MD [facility] CARDIOLOGY [place], [place] [address] ( rk) 09/05/2022 Office Visit Cardiology Trinity Reid MD [facility] CARDIOLOGY [place], [place] [address] ([facility]) documented as of this encounter Visit Diagnoses Not on filedocumented in this encounter Care Teams Mapper Relationship Specialty Start Date End Date Bobby Das MD PCP - General 10/02/[address] [place] [address] [place] [phone] documented as of this encounter
--- OUTSIDE RECORDS SUMMARY | 2022-07-26 10:51 | XMS_ITS | Encounter Summary ---
:1940 Author Organization [facility] [place] [address] Care Team Providers Name Role Phone Bobby Das MD Primary Care Provider Reason for Referral Consultation (Routine) - Authorized Specialty Diagnoses / Procedures Referred By Contact Refer red To Contact Gastroenterology Diagnoses Adenomatous polyp of colon, unspecified part of colon Colonoscopy 06/25/22, discussed w/Dr. Ponce needs to be seen in clinic to discuss polyp / removal iso plavix & DOAC Isi Celaya MD [facility] [place] 4l [facility] [place] [address] [place] [address] Phone: Fax: Referral ID Status Reason Start Date Expiration Visits Visits Date Requested Authorized [id number] Authorized Consult, 06/25/2022 06/25/2023 1 1 Test & Treat Scheduling Instructions To be seen in ~2mo Encounter Details Date Type Department Care Team Description 06/25/2022 Orders Only Gastroenterology at [facility] Isi Celaya Adenomatous polyp of [facility] Bobby Mera [place], [place] [address] [facility] part of colon [phone] [facility] [address] Social History Tobacco Use Types Packs/Day [...] Collins MD [facility] DR GASTROENTEROLOGY DEPT [place] [phone] (Wo rk) 09/05/2022 Appointment Cardiology Trinity Reid MD [facility] CARDIOLOGY [place], [place] [address] (Wo rk) 09/05/2022 Office Visit Cardiology Trinity Reid MD [facility] CARDIOLOGY [place], [place] [address] (Wo rk) Scheduled Referrals Name Type Priority Associated Order Schedule Diagnoses Referral to Outpatient Routine Adenomatous polyp Ordered: Gastroenterology Referral of colon, 06/25/2022 unspecified part of colon documented as of this encounter Visit Diagnoses Diagnosis Adenomatous polyp of colon, unspecified part of colon documented in this encounter Care Teams Foot Drill Operator Relationship Specialty Start Date End Date Bobby Das MD PCP - General 10/02/[address] [place] [address] [place] [phone] documented as of this encounter
--- OUTSIDE RECORDS SUMMARY | 2022-07-26 10:51 | XMS_ITS | Encounter Summary ---
:1940 Author Organization [facility] [place] [address] Care Team Providers Name Role Phone Bobby Das MD Primary Care Provider Encounter Details Date Type Department Care Team Description 07/01/2022 Telephone Dermatology at [facility], Zainab Dupree, SPUD SORTER [address] [place] [address] Social History Tobacco Use Types Packs/Day [...] [facility] DR GASTROENTEROLOGY DEPT [place], [place] [address] (Wo rk) 09/05/2022 Appointment Cardiology Trinity Reid MD [facility] CARDIOLOGY [place], [place] [address] (Wo rk) 09/05/2022 Office Visit Cardiology Trinity Reid MD [facility] CARDIOLOGY [place], [place] [address] (Wo rk) documented as of this encounter Visit Diagnoses Not on filedocumented in this encounter Care Teams Tempering Machine Operator Relationship Specialty Start Date End Date Bobby Das MD PCP - General 10/02/[address] [place] [address] [place] [phone] documented as of this encounter
--- OUTSIDE RECORDS SUMMARY | 2022-07-26 10:51 | XMS_ITS | Encounter Summary ---
:1940 Author Organization [facility] [place] [address] Care Team Providers Name Role Phone Bobby Das MD Primary Care Provider Encounter Details Date Type Department Care Team Description 06/25/2022 Surgery Gastroenterology at [facility] Giovani Ponce, EGD, UPPER GI [facility] Bobby gilliland [place] [address] [facility] [phone] [place], [place] [address] Social History Tobacco Use Types [...] the day after the procedure, use an gadk-rlg-xqgihak spray to numb your throat. Sucking on [...] occurs, please contact your Doctor. Please call [phone] before 8pm Mon-Fri with problems, questions or concerns. If you call after 8pm or on weekends, call the Hospital at [phone] and ask to speak to the Glycerine Plant Operator rehabilitation psychologist and the bus operator will contact that person for you. When should you call for help? Call [phone] anytime you think you may need emergency [...] any problems. Where can you learn more? [facility] View your After Visit Summary and more online at [email or web address] If you would like to provide feedback about your hospital experience, please call the Office of Patient and Family Relations at . If you have received this After Visit Summary in error, please immediately return it in person to the department, or notify the [facility] Privacy Office by calling toll free at between the hours of 8AM and 5PM to arrange for our retrieval of the documents at no cost to you. Content Version: 12.2 ?? 5232-8784 [employer]. Care instructions adapted under license by [facility]. If you have questions about a medical condition or this instruction, always ask your healthcare professional. [employer] disclaims any warranty or liability for [...] occurs, please contact your Doctor. Please call [phone] before 8pm Mon-Fri with problems, questions or concerns. If you call after 8pm or on weekends, call the Hospital at [phone] and ask to speak to the Glycerine Plant Operator rehabilitation psychologist and the bus operator will contact that person for you. When should you call for help? Call [phone] anytime you think you may need emergency [...] any problems. Where can you learn more? [facility] View your After Visit Summary and more online at [email or web address] If you would like to provide feedback about your hospital experience, please call the Office of Patient and Family Relations at . If you have received this After Visit Summary in error, please immediately return it in person to the department, or notify the [facility] Privacy Office by calling toll free at between the hours of 8AM and 5PM to arrange for our retrieval of the documents at no cost to you. Content Version: 12.2 ?? 9657-3974 [employer]. Care instructions adapted under license by [facility]. If you have questions about a medical condition or this instruction, always ask your healthcare professional. [employer] disclaims any warranty or liability for your [...] 21 (FLONASE) 50 mcg/actuation Nare route daily [place], Suspension as needed. fluorouraciL (EFUDEX) 5 % [...] ischemia I99.8 ??? Coronary artery disease involving [place] coronary artery of [place] heart without angina zgkdkekoF62.10 ??? HFrEF (heart failure with reduced ejection [...] [facility] GASTROENTEROLOGY DEPT [place], [place] [address] (Wo rk) 09/05/2022 Appointment Cardiology Trinity Reid MD [facility] CARDIOLOGY [place], [place] [address] (Wo rk) 09/05/2022 Office Visit Cardiology Trinity Reid MD [facility] CARDIOLOGY [place], [place] [address] (Wo rk) documented as of this [...] [facility] Range Method Time Signature UPPER GI [facility] ENDOSCOPY Endoscopy Procedure Date: 06/25/2022 10:33 AM ? Patient Name: Koko Zamora ? Date of : 1940 ? Age: 81 ? Order #: [id number] ? Instrument Name: EC-760P- [id number]- [id number] ? Procedure: ? Upper GI endoscopy Indications: ? Recent gastrointestinal bleeding Providers: ? Giovani Ponce, Isi puente, ? Brissa Vee RN, Darrell ? Confalone Referring MD: ?[facility]: ? Propofol per Anesthesia Complications: ? [...] Component Value Ref Test Analysis Performed At [facility] Method Time Signature COLONOSCOPY [facility] Endoscopy Procedure Date: 06/25/2022 10:33 AM ? Patient Name: Koko Zamora ? Date of : 1940 ? Age: 81 ? Order #: [id number] ? Instrument Name: EC-760P- [id number] ? Procedure: ? Colonoscopy Indications: ? Gastrointestinal [...] Procedure Code(s): ? --- Professional --- ? 82594, Colonoscopy, flexib le; with ? control of [...] of sigmoid ? colon CPT copyright 2021 [employer]. All rights reserved. The codes documented in this report are preliminary and upon claims support specialist review may be revised to meet [...] Procedure) documented in this encounter Care Teams Belt Picker Relationship Specialty Start Date End Date Bobby Das MD PCP - General 10/02/[address] [place] [address] [place] [phone] documented as of this encounter
--- OUTSIDE RECORDS SUMMARY | 2022-07-26 10:51 | XMS_ITS | Encounter Summary ---
:1940 Author Organization [facility] [place] [address] Care Team Providers Name Role Phone Abby Das MD Primary Care Provider Encounter Details Date Type Department Care Team Description 06/25/2022 Anesthesia Event Gastroenterology at [facility] Abby Alfaro MD [facility] [place] [address] [facility] David Lewis CRNA [facility] [place] [address] [place] [address] Anesthesia Record Procedure Summary Procedure Name [...] vein (antecubital fossa), Mame Peterson RN left; cyxa-brq-bwsybz catheter system; 18 gauge; Present on admission PIV 06/25/22; 1046; great 06/25/22 1046 by saphenous vein (medial side of Mame Peterson RN leg), right; pfec-fkt-cuvpqq catheter system; Anatomical Landmarks; 18 gauge; Present [...] Procedure Summary Date: 06/25/22 Room / Location: [facility] ENDO 4 / [facility] ENDOSCOPY Anesthesia Start: 1101 Anesthesia Stop: 1202 Procedures: EGD, UPPER GI ENDOSCOPY (N/A Trunk) COLONOSCOPY; W CONTROL OF BLEEDING, ANY METHOD (N/A Trunk) SMALL BOWEL ENTEROSCOPY (N/A Trunk) Diagnosis: (melena +./-) Surgeons: Giovani Ponce MD Responsible Provider: Abby Alfaro MD Anesthesia Type: MAC ASA Status: 3 All Anesthesia Providers: Anesthesiologist: Abby Alfaro MD REGISTERED HEALTH NURSE: David Gill CRNA Vitals Value Taken Time [...] Date Noted ??? Coronary artery disease involving [place] coronary artery of [place] heart without angina vetnpugl23/04/2022 ??? HFrEF (heart failure with reduced ejection [...] IR Biopsy Spine 07/20/2019 Abby Marshall MD [facility] INTERVENTIONL RAD ??? IR VERTEBROPLASTY LUMBAR MULTIPLE LEVELS 07/20/2019 IR Vertebroplasty Lumbar Multiple Levels 07/20/2019 Abby Marshall MD [facility] INTERVENTIONL RAD ??? IR VERTEBROPLASTY THORACIC SINGLE LEVEL 10/25/2020 IR Vertebroplasty Thoracic Single Level 10/25/2020 Matt Chisholm MD [facility] INTERVENTIONL RAD ??? PRO EMBLC/THRMBC FEMORAL POPLITEAL AORTO-ILIAC ARTERY Left 05/15/2022 EMBOLECTOMY OR THROMBECTOMY, FEMOROPOPLITEAL, AORTOILIAC ARTERY BY LEG INCISION (WRVU 19.48) performed by Fito Summers MD at [facility] MAIN OR ??? PRO UPPER GI ENDOSCOPY, CTRL BLEED 05/31/2022 EGD, W CONTROL OF BLEEDING, ANY METHOD performed by Giovani Ponce MD at [facility] ENDOSCOPY ??? PRO UPPER GI ENDOSCOPY, DIAGNOSTIC N/A 05/31/2022 EGD, UPPER GI ENDOSCOPY performed by Giovani Ponce MD at [facility] ENDOSCOPY Social History Tobacco Use ??? [...] risks discussed with patient. Plan discussed with REGISTERED HEALTH NURSE. Anesthesia Screening documented in this encounter Plan of Treatment Upcoming Encounters Date Type Specialty Care Team Description 08/08/2022 Office Visit Gastroenterology Negra Collins MD [facility] GASTROENTEROLOGY DEPT [place], [place] [address] (Wo rk) 09/05/2022 Appointment Cardiology Trinity Reid MD [facility] CARDIOLOGY [place], [place] [address] (Wo rk) 09/05/2022 Office Visit Cardiology Trinity Reid MD [facility] CARDIOLOGY [place], [place] [address] (Wo rk) documented as of [...] mg documented in this encounter Care Teams Hand Paint Mixer Relationship Specialty Start Date End Date Abby Das MD PCP - General 10/02/[address] [place] [address] [place] [phone] documented as of this encounter
--- OUTSIDE RECORDS SUMMARY | 2022-07-26 10:51 | XMS_ITS | Encounter Summary ---
:1940 Author Organization [facility] [address] Care Team Providers Name Role Phone Bobby Das MD Primary Care Provider Reason for Referral Consultation (Routine) - Closed Specialty Diagnoses / Referred By Contact Referred To Contact Procedures Cardiac Rehabilitation Diagnoses HFrEF (heart failure with reduced ejection fraction) Coronary artery disease involving [place] coronary artery of [place] heart without angina pectoris Alan Reid Cardiac Rehab, MD Kurt [address] [place], [place] CARDIOLOGY [address] [place] [address] Referral ID Status Reason Start Date Expiration Date Visits V isits Requested Authorized [id number] Closed Consult, 06/20/2022 12/17/2022 36 36 Test & Treat Encounter Details Date Type Department Care Team Description 06/20/2022 Orders Only Cardiology at [facility] Alan Reid HFrEF (heart failure with re duced ejection fraction); [facility] MD Kurt Coronary artery disease involving [place] coronary artery of [place] heart [place] [address] CARDIOLOGY [phone] [place], [place] [address] (Wo rk) Social History Tobacco [...] MD [facility] GASTROENTEROLOGY DEPT [place], [place] [address] (Wo rk) 09/05/2022 Appointment Cardiology Trinity Reid MD [facility] CARDIOLOGY [place], [place] [address] (Wo rk) 09/05/2022 Office Visit Cardiology Trinity Reid MD [facility] CARDIOLOGY [place], [place] [address] (Wo rk) Scheduled Referrals Name Type Priority Associated Diagnoses [facility] to [facility] Referral Routine HFrEF (heart failure Ordered: Cardiac Rehab with reduced 06/20/2022 ejection fractio n) Coronary artery disease involving [place] coronary artery of [place] heart without angina pectoris documented as of this encounter Visit Diagnoses Diagnosis HFrEF (heart failure with reduced ejecti on fraction) Coronary artery disease involving [place] coronary artery of [place] heart without angina pectoris documented in this encounter Care Teams Director Specialty Relationship Specialty Start Date End Date Bobby Das MD PCP - General 10/02/[address] [place] [address] [place] [phone] documented as of this encounter
--- OUTSIDE RECORDS SUMMARY | 2022-07-26 10:51 | XMS_ITS | Encounter Summary ---
:1940 Author Organization [facility] [place] [address] Care Team Providers Name Role Phone Bobby Das MD Primary Care Provider Encounter Details Date Type Department Care Team Description 06/19/2022 Telephone Cardiology at [facility] Kourtney Jimenez, [facility] [place] [address] Social History Tobacco Use Types Packs/Day [...] Zamora: Requesting a referral to Cardiac Rehab [facility] Forward to Dr Reid documented in this encounter Plan of Treatment Upcoming Encounters Date Type Specialty Care Team Description 08/08/2022 Office Visit Gastroenterology Negra Collins MD [facility] GASTROENTEROLOGY DEPT [place], [place] [address] (Wo rk) 09/05/2022 Appointment Cardiology Trinity Reid MD [facility] CARDIOLOGY [place], [place] [address] (Wo rk) 09/05/2022 Office Visit Cardiology Trinity Reid MD [facility] CARDIOLOGY [place], [place] [address] (Wo rk) documented as of this encounter Visit Diagnoses Not on filedocumented in this encounter Care Teams Sock Liner Relationship Specialty Start Date End Date Bobby Das MD PCP - General 10/02/[address] [place] [address] [place] [phone] documented as of this encounter
--- OUTSIDE RECORDS SUMMARY | 2022-07-26 10:51 | XMS_ITS | Encounter Summary ---
:1940 Author Organization [facility] [place] [address] Care Team Providers Name Role Phone Bobby Das MD Primary Care Provider Encounter Details Date Type Department Care Team Description 06/25/2022 Hospital Encounter Gastroenterology at [facility] Giovani Ponce, [facility] [place] [address] [facility] [phone] [place] [address] Social History Tobacco Use Types Packs/Day [...] the day after the procedure, use an jctu-poz-fjnctaa spray to numb your throat. Sucking on [...] occurs, please contact your Doctor. Please call [phone] before 8pm Mon-Fri with problems, questions or concerns. If you call after 8pm or on weekends, call the Hospital at [phone] and ask to speak to the Strategic Advisor airport operations coordinator and the wood web weaving machine operator will contact that person for you. When should you call for help? Call [phone] anytime you think you may need emergency [...] any problems. Where can you learn more? [facility] View your After Visit Summary and more online at [email or web address] If you would like to provide feedback about your hospital experience, please call the Office of Patient and Family Relations at . If you have received this After Visit Summary in error, please immediately return it in person to the department, or notify the [facility] Privacy Office by calling toll free at between the hours of 8AM and 5PM to arrange for our retrieval of the documents at no cost to you. Content Version: 12.2 ?? 7466-0619 [employer]. Care instructions adapted under license by [facility]. If you have questions about a medical condition or this instruction, always ask your healthcare professional. [employer] disclaims any warranty or liability for your [...] occurs, please contact your Doctor. Please call [phone] before 8pm Mon-Fri with problems, questions or concerns. If you call after 8pm or on weekends, call the Hospital at [phone] and ask to speak to the Strategic Advisor airport operations coordinator and the wood web weaving machine operator will contact that person for you. When should you call for help? Call [phone] anytime you think you may need emergency [...] any problems. Where can you learn more? [facility] View your After Visit Summary and more online at [email or web address] If you would like to provide feedback about your hospital experience, please call the Office of Patient and Family Relations at . If you have received this After Visit Summary in error, please immediately return it in person to the department, or notify the [facility] Privacy Office by calling toll free at between the hours of 8AM and 5PM to arrange for our retrieval of the documents at no cost to you. Content Version: 12.2 ?? 1649-0786 [employer]. Care instructions adapted under license by [facility]. If you have questions about a medical condition or this instruction, always ask your healthcare professional. [employer] disclaims any warranty or liability for [...] 21 (FLONASE) 50 mcg/actuation Nare route daily [place], Suspension as needed. fluorouraciL (EFUDEX) 5 % [...] ischemia I99.8 ??? Coronary artery disease involving [place] coronary artery of [place] heart without angina ievnvjkwO46.10 ??? HFrEF (heart failure with reduced ejection [...] MD [facility] CARDIOLOGY [place], [place] [address] (Wo rk) 09/05/2022 Office Visit Cardiology Trinity Reid MD [facility] ER DR CARDIOLOGY [place] [address] (Wo rk) documented as of this [...] Value Ref Test Analysis Performed At [facility] Range Method Time Signature UPPER GI [facility] ENDOSCOPY Endoscopy Procedure Date: 06/25/2022 10:33 AM ? Patient Name: Koko Zamora ? Date of : 1940 ? Age: 81 ? Order #: [id number] ? Instrument Name: EC-760P- [id number]- [id number] ? Procedure: ? Upper GI endoscopy Indications: ? Recent gastrointestinal bleeding Providers: ? Giovani Ponce, Isi puente, ? Brissa Vee RN, [place] ? Confalone Referring MD: ?[facility]: ? Propofol per Anesthesia Complications: ? No [...] Endoscope w as ? introduced through the [facility], and ? advanced to the second [...] [facility] Method Time Signature COLONOSCOPY [facility] Endoscopy Procedure Date: 06/25/2022 10:33 AM ? Patient Name: Koko Zamora ? Date of : 1940 ? Age: 81 ? Order #: [id number] ? Instrument Name: EC-760P- [id number] ? Procedure: ? Colonoscopy Indications: ? Gastrointestinal [...] Procedure Code(s): ? --- Professional --- ? 49094, Colonoscopy, flexib le; with ? control of [...] of sigmoid ? colon CPT copyright 202 [employer]. All rights reserved. The codes documented in this report are preliminary and upon inspector handbag frames review may be revised to meet current [...] Procedure) documented in this encounter Care Teams Landscape Supervisor Relationship Specialty Start Date End Date Bobby Das MD PCP - General 10/02/[address] [place] [address] [place] [phone] documented as of this encounter
--- OUTSIDE RECORDS SUMMARY | 2022-07-26 10:51 | XMS_ITS | Encounter Summary ---
:1940 Author Organization [facility] [address] Care Team Providers Name Role Phone Bobby Das MD Primary Care Provider Reason for Visit Reason Comments Skin Lesion Consultation (Routine) - Closed Specialty Diagnoses / Procedures Referred By Contact Refer red To Contact Dermatology Diagnoses Lesion on right eye = hx of skin cancer Bobby Das MD [facility] Dermatology Procedures Lesion on right eye = hx of skin cancer [address] [facility] [address] [place] [address] [place] [address] Fax: Referral ID Status Reason Start Date Expiration Date Visits Requ ested Visits Authorized [id number] Closed 04/22/2022 04/22/2023 1 1 Encounter Details Date Type Department Care Team Description 06/10/2022 Office Visit Dermatology at [facility], Neoplasm of Road unspecified behavior [address] [facility] [place] [address] [address] and skin [phone] DERMATOLOGY [place] [address] Social History Tobacco Use Types Packs/Day Years [...] nevi N SCC N BCC 2015: right alevism, BCC s/p mohs 09/2018: right eyebrow, BCC [...] N/A RTC: Pending pathology []Note routed to special education secretary []Recall placed in scheduling system []Appointment scheduled at checkout Scribe attestation: Sidney Higgins and Loretta Gomez CMA performed the documentation for this encounter in the presence of and acting as a scribe for Noel Burgos MD. I performed the above scribed service and agree with the accuracy of the documentation in this encounter. Reviewed and signed by: Noel Burgos MD Derm[facility]ology [facility]ta Cohen MD - 06/10/2022 11:00 AM EDT DERMATOLOGY TELEPHONE NOTE Koko Zamora 06/17/2022 [id number] Reason for call: Discuss biopsy results I [...] MD [facility] GASTROENTEROLOGY DEPT [place], [place] [address] (Wo bob) 09/05/2022 Appointment Cardiology Trinity Reid MD [facility] CARDIOLOGY [place], [place] [address] (Rebekah rojas) 09/05/2022 Office Visit Cardiology Trinity Reid MD [facility] ER DR CARDIOLOGY [place] [id number] (Wo rk) documented as of this encounter [...] PM 2 1:20 EDT PM EDT Narrative [facility] - 06/10/2022 1:20 PM EDT Specimen requisition ordered. ??Separate Pathology report to follow Loretta Cohen MD PATHOLOGY/CYTOLOGY ORDERABLE S Performing Organization Address City/State/[place] [address] Surgical Pathology Report (06/10/2022 11:43 AM EDT) Component Value Ref Test Analysis Performed At [facility] gist Range Method Time Signature Surgical [id number] ? Location: [facility] Report The signing pathologist has (i) examined the relevant preparation(s) for the [facility] specimen(s) and (ii) rendered or confirmed the diagnosis(es) . HOSPITAL LABORATORY . ?Surgic al Pathology DIAGNOSIS Right lateral eyebrow, skin shave biopsy: - ??Basal cell carcinoma, no dular pattern, transected at the peripheral and deep specimen edges Electronically signed by: ?Delroy CARCAMO, PhD, Ian Verified: ??06/12/2022 14:33 ??Dermatopathologist Performed at: ??-[facility] Dept. of Pathology, [place], [place] SPECIMEN(S) SUBMITTED A - right lateral [...] Organization Address City/State/[place] [address] [facility] [address] documented in this encounter Visit Diagnoses Diagnosis Neoplasm of unspecified behavior of bone , soft tissue, and skin documented in this encounter Care Teams Substance Abuse Therapist Relationship Specialty Start Date End Date Bobby Das MD PCP - General 10/02/[address] [place] [address] [place] [address] documented as of this encounter
--- OUTSIDE RECORDS SUMMARY | 2022-07-26 10:51 | XMS_ITS | Encounter Summary ---
:1940 [place] [address] Care Team Providers Name Role Phone Bobby Das MD Primary Care Provider Encounter Details Date Type Department Care Team Description 06/13/2022 Office Visit V[facility] [place] [facility] Fito Summers MD Limb ischemia [facility] [place] [address] VASCULAR SURGERY [phone] [place] [id number] (Wo rk) Social History Tobacco Use Types [...] s/p repair Overview Note: Surgery done at [facility] in 2000 ??? Hypertriglyceridemia Overview [...] with ABIs. Fito Summers MD Vascular Surgery [facility] Emily Power CMA - 06/13/2022 8:00 AM EDT Handwashing performed, gloves on.As instructed by windy removed on LLE medial and lateral aspect, cleansed after staple remover, steri strips applied. Gloves off, handwashing performed. documented in this encounter Plan of Treatment Upcoming Encounters Date Type Specialty Care Team Description 08/08/2022 Office Visit Gastroenterology Negra Collins MD [facility] GASTROENTEROLOGY DEPT [place], [place] [address] (Wo rk) 09/05/2022 Appointment Cardiology Trinity Reid MD [facility] [address] [place], [place] [address] (Wo rk) 09/05/2022 Office Visit Cardiology Trinity Reid MD [facility] [address] [place], [place] [address] (Wo rk) documented as of this encounter Visit Diagnoses Diagnosis Limb ischemia Unspecified circulatory system disorder documented in this encounter Care Teams Alum Operator Relationship Specialty Start Date End Date Bobby Das MD PCP - General 10/02/[address] [place] [address] [place] [address] documented as of this encounter
--- OUTSIDE RECORDS SUMMARY | 2022-07-26 10:51 | XMS_ITS | Clinical Summary ---
:1940 Author Organization [facility] [place] [address] Care Team Providers Name Role Phone Bobby [...] 04/12/2021 Active (FLONASE) 50 mcg/actuation Each Nare [place], Suspension route daily as needed. 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 Permanent atrial fibrillation 06/13/2022 Last Assessment & [...] consideration of AV no de ablation and DESIGN DIRECTOR-D Limb ischemia 05/15/2022 History of basal cell carcinoma 05/31/2014 Basal cell carcinoma 03/29/2014 Verruca vulgaris 03/29/2014 AK (actinic keratosis) 03/29/2014 GIB (gastrointestinal bleeding) 06/28/2011 Overview: Secondary to 3-4 ASA/day, required admis lynette and blood transfusion MVP (mitral valve prolapse) s/p repair 06/28/2011 Overview: Surgery done at [facility] in 2 001 Hypertriglyceridemia 06/28/2011 Adhesive [...] Hicks MD Coronary priscilla ry disease involving salamatof coronary artery of salam[place] heart without angina pectoris 06/19/2022 Telephone Cardiology Kourtney Jimenez RN 06/17/2022 Orders Only Dermatology Loretta Cohen Basal cell c carlos Paez MD (BCC) of right forehead 06/13/2022 Office Visit Cardiology Jeanette, Coronary artery disease involving salamatof coronary artery of salam[place] heart without angina pectoris; Alan Hicks MD [...] Gastroenterology Elmer Johnson MD Drost, Alexander J, PRESIDENT EDUCATIONAL INSTITUTION 05/31/2022 Surgery Gastroenterology Giovani Ponce UPPE R GI M, MD ENDOSCOPY 05/31/2022 - Hospital Encounter Dominique Hinds GIB (g astrointestinal 06/02/2022 MD bleeding) (Primary Dx) Mahendra Victor MD Friedman, Harley P, MD Ratanamaneechat, Suphagaphan, MD 05/31/2022 Office Visit Vascular Surgery DavinaStephanie bellamyy Dizzy; B, HEAD NECK SURGEON Atrial fibrilla tion, unspecified type; SOB (shortness of breath) 05/28/2022 Telephone Vascular Surgery Dominique Bolivar, DION 05/24/2022 Telephone Cardiology Kourtney Jimenez RN 05/21/2022 Hospital Encounter Cardiology Paroxysma l atrial fibrillation 05/20/2022 Surgery Cardiology Abundio Servin MD CATHETERIZATION 05/15/2022 Anesthesia Event Surgery Cari Hernandez MD Patel, Shreena K, PRESIDENT EDUCATIONAL INSTITUTION 05/15/2022 Surgery Surgery Fito Summers EMBOLECTOMY [place] [...] Collins MD [facility] GASTROENTEROLOGY DEPT [place], [place] [address] (Wo rk) 09/05/2022 Appointment Cardiology Trinity Reid MD [facility] CARDIOLOGY [place], [place] [address] (Wo rk) 09/05/2022 Office Visit Cardiology Trinity Reid MD [facility] CARDIOLOGY [place], [place] [address] (Wo rk) Health Maintenance [...] Center Range Method Time Signature UPPER GI [facility] ENDOSCOPY Endoscopy Procedure Date: 06/25/2022 10:33 AM ? Patient Name: Koko Bah ? Date of : 1940 ? Age: 81 ? Order #: [id number] ? Instrument Name: [id number]- [id number] ? Procedure: ? Upper GI endoscopy Indications: [...] [facility] Method Time Signature COLONOSCOPY [facility] Endoscopy Procedure Date: 06/25/2022 10:33 AM ? Patient Name: Koko Bah ? Date of : 1940 ? Age: 81 ? Order #: [id number] ? Instrument Name: [id number]- [id number] ? Procedure: ? Colonoscopy Indications: ? Gastrointestinal [...] Procedure Code(s): ? --- Professional --- ? 62234, Colonoscopy, flexib le; with ? control of [...] of sigmoid ? colon CPT copyright 2020 [employer]. All rights reserved. The codes documented in this report are preliminary and upon curber review may be revised to meet current [...] Department: Vascular Surgery Lab VASCUBASE Report Patient: [id number] (KOKO BAH) CPT: 50216 Referring Physician: FITO SUMMERS ?? Phone: Indications: s/p L TRIAL MGR endart. Diabetes mellitus: no Findings: Right ?Pressure [...] Summers MD VASCULAR ORDERABLES Performing Organization Address City/[facility]/ZIP Code Phon e Number VASCUBASE Specimen to [...] MD PATHOLOGY/CYTOLOGY ORDERABLE S Performing Organization Address [facility] [place] [address] Surgical Pathology Report (06/10/2022 11:43 AM EDT) Component Value Ref Test Analysis Performed At [facility] Range Method Time Signature Surgical [id number] ? Location: [facility] Report The signing pathologist has (i) examined the relevant preparation(s) for the [facility] specimen(s) and (ii) rendered or confirmed the diagnosis(es) . HOSPITAL LABORATORY . ?Surgic al Pathology DIAGNOSIS Right lateral eyebrow, skin shave biopsy: - ??Basal cell carcinoma, no dular pattern, transected at the peripheral and deep specimen edges Electronically signed by: ?Delroy CARCAMO, PhD, Ian Verified: ??06/12/2022 14:33 ??Dermatopathologist Performed at: ??-[facility] Dept. of Pathology, [place], [place] SPECIMEN(S) SUBMITTED A - right lateral [...] Organization Address City/State/[place] [address] (ABNORMAL) Hemogram (06/02/2022 8:20 AM EDT)Only the most recent of14 results within the time period is included. Analysis Performed At Patho logist Time Signature WBC 7.2 4.0 - 9.5 [facility] x10(3)/[facility] LABORATORY RBC 2.74 (L) 4.58 - [facility] XIAO 5.54 [facility] x10(6)/[facility] LABORATORY Hemoglobin 8.7 (L) 13.7 - [place] XIAO 16.5 g/dL [facility] LABORATORY Hematocrit 25.7 (L) 40.5 - [facility] XIAO 48.5 % [facility] LABORATORY MCV 93.8 (H) 82.9 - [facility] XIAO 93.1 [facility] LABORATORY MCH 31.8 27.5 - IIIMOBIXIAO 32.1 pg [facility] LABORATORY MCHC 33.9 32.0 - [facility] X[facility] 35.7 g/dL [facility] LABORATORY Platelets 260 145 - 357 [facility] x10(3)/[facility] LABORATORY RDWSD 51.0 (H) 36.0 - [place] X[place]O 45.0 [facility] LABORATORY RDWCV 14.9 (H) 11.4 - [facility] XIAO 13.8 % [facility] LABORATORY MPV 10.0 7.6 - 12.9 [facility] nRBC % Auto 0.0 % [facility] LABORATORY nRBC Abs Auto 0.000 0.000 - [facility] 0.000 [facility] x10(3)[facility] LABORATORY Specimen Anatomical Collection Method Collection Time Receive d Time (Source) Location / / Volume Laterality Blood 06/02/2022 8:20 AM 8:25 EDT AM EDT Resulting Agency Comment Spec In Lab Kurt Ames MD HEMATOLOGY ORDERABLES Performing Organization Address City/State/[place]IP [place] [address] (ABNORMAL) Differential, Automated (06/02/2022 8:20 AM EDT)Only the most recent of14 resultswithin the time period is included. P athologist Signature Neutrophils % 61.3 % [facility] LABORATORY Neutr Abs (ANC) 4.44 1.70 - [facility] 6.10 [facility] x10(3)[facility] LABORATORY Lymphocytes % 25.2 % [facility] LABORATORY Lymphocytes Abs 1.8 0.9 - 3.2 [facility] x10(3)[facility] LABORATORY Monocytes % 10.0 % [facility] LABORATORY Monocyte Abs 0.7 0.3 - 0.9 [facility] x10(3)[facility] LABORATORY Eosinophils % 2.1 % [facility] LABORATORY Eosinophils Abs 0.2 0.0 - 0.4 [facility] x10(3)[facility] LABORATORY Basophils % 0.7 % [facility] LABORATORY Basophils Abs 0.0 0.0 - 0.1 [facility] x10(3)[facility] LABORATORY Immature Gran % 0.70 [...] Abs 0.05 (H) 0.00 - 0.04 x10(3)/mcL [facility] LABORATORY Specimen Anatomical Collection Method Collection Time Receive d Time (Source) Location / / Volume Laterality Blood 06/02/2022 8:20 AM 2 8:25 EDT AM EDT Resulting Agency Comment Spec In Lab Kurt Ames MD HEMATOLOGY ORDERABLES Performing Organization Address City/State/ZIP Code Phon e Number [address] Heparin (unfractionated) Level (06/02/2022 6:30 AM EDT)Only the most recent of11 resultswithin the time period is included. athologist Signature Heparin UFH 0.39 IU/mL [facility] LABORATORY Comment: Heparin [...] Organization Address City/State/ZIP Code Phon e Number [address] Magnesium (06/02/2022 12:30 AM EDT)Only the most recent of5 resultswithin the time period is included. athologist Signature Magnesium 0.83 0.69 - 1.07 [facility] mmol/L [facility] LABORATORY Specimen Anatomical Collection Method Collection Time Receive d Time (Source) Location / / Volume Laterality Blood 06/02/2022 12:30 06/02/2022 AM EDT 12:40 AM EDT Resulting Agency Comment Spec In Lab Mahendra Victor MD CHEMISTRY ORDERABLES Performing Organization Address City/State/Z[place] [address] (ABNORMAL) Basic Metabolic Panel (non-fasting) (06/02/2022 12:30 AM EDT)Only the most recent of6 resultswithin the time period is included. athologist Signature Glucose Lvl 151 65 - 199 [facility] mg/dL [facility] LABORATORY Comment: Diabetes: >=200 mg/dL plus symp toms BUN 12 10 - 20 mg/dL [facility] LABORATORY Creatinine 0.71 (L) 0.80 [...] 15 mmol/L [facility] LABORATORY Calcium 8.1 (L) 8.5 [...] Address City/State/[place] [address] SCAN DOC: TELEMETRY STRIPS (06/01/2022 8:37 PM EDT)Only the most recent of8 resultswithin the time period is included. Narrative This result has an attachment that is no t available. Unknown MEDIA MGR SCAN EXT ORDR/RSLT (ABNORMAL) Urinalysis with reflex Culture (06/01/2022 4:00 AM EDT)Only the most recent of2 resultswithin the time period is included. [facility] gist Method Time Signature Glucose UA 500 Negative [facility] (Critical) mg/dL [facility] LABORATORY Comment: Urinalysis result NOT critical without a combination of Glucose greater than or equal to 500 mg/dL AND Ketones greate r than or equal to 80 mg/dL Protein UA Negative Negative mg/dL [facility] LABORATORY Bilirubin UA Negative Negative mg/dL [facility] LABORATORY Comment: Clinical correlation required [...] LABORATORY Appearance UA Clear Clear ILDA XIAO [facility] LABORATORY Spec [place] UA >=1.030 (A) 1.005 - 1.030 CENTRAL [...] Address City/State/[place] [address] Transfuse RBC (05/31/2022 7:36 PM EDT) Dominique Hinds MD NURSING TREATMENT ORDERABLES - BLOOD ADMIN UPPER GI ENDOSCOPY (05/31/2022 3:37 PM EDT) Component Value Ref Test Analysis Performed At [facility] Range Method Time Signature UPPER GI [facility] ENDOSCOPY Endoscopy Procedure Date: 05/31/2022 3:37 PM ? Patient Name: Koko Bah ? Date of : 1940 ? Age: 81 ? Order #: [id number] ? Instrument Name: [id number] ? Procedure: ? Upper GI endoscopy Indications: [...] Endoscope w as ? introduced through the [facility], and ? advanced to the fourth [...] Procedure Code(s): ? --- Professional --- ? 98125, Esophagogastroduode noscopy, ? flexible, transoral; with control [...] stomach ? and duodenum CPT copyright 2020 [employer]. All rights reserved. The codes documented in this report are preliminary and upon curber review may be revised to meet current [...] who have questions please contact the health out of school hours care worker that requested your imaging first. ? Narrative 05/31/2022 2:39 PM EDT EXAMINATION: CT ABDOMEN AND PELVIS [facility] CONTRAST (GI BLEED) CLINICAL HISTORY: Significant Hb drop. U nknown source. has had a [facility] with stent placed and revascularization of [...] enlarged lymph nodes. Vasculature: Patent common iliac, topographical surveyor al iliac, and common femoral arteries [...] the original. EXAMINATION: CT ABDOMEN AND PELVIS [facility] (GI BLEED) CLINICAL HISTORY: Significant [...] enlarged lymph nodes. Vasculature: Patent common iliac, topographical surveyor al iliac, and common femoral arteries [...] ho have questions please contact the health out of school hours care worker that requested your imaging first. Dominique Hinds MD IMG CT ORDERABLES Type and Screen Validity (05/31/2022 1:43 PM EDT)Only the most recent of2 resultswithin the time period is included. [facility] Method Time Signature T&S only valid [facility] LABORATORY Comment: This Type and Screen result is only valid at the [facility] Specimen Anatomical Collection Method Collection Time Receive d Time (Source) Location / / Volume Laterality Blood 05/31/2022 1:43 PM 2 1:57 EDT PM EDT Resulting Agency Comment Spec In Lab Dominique Hinds MD BLOOD BANK ORDERABLES Performing Organization Address City/State/Z[place] [address] ABORH Recheck Status (05/31/2022 1:43 PM EDT)Only the most recent of2 results within the time period is included. [facility] Method Time Signature ABORH Type Completed [facility] LABORATORY Specimen Anatomical Collection Method Collection Time Receive d Time (Source) Location / / Volume Laterality Blood 05/31/2022 1:43 PM 2 1:57 EDT PM EDT Resulting Agency Comment Spec In Lab Dominique Hinds MD BLOOD BANK ORDERABLES Performing Organization Address City/[facility]/[place] [address] ABO/Rh Typing (05/31/2022 1:43 [...] MD BLOOD BANK ORDERABLES Performing Organization Address [facility]/[place] [address] Antibody screen (05/31/2022 1:43 PM EDT)Only the most recent of2 resultswithin the time period is included. Patholo gist Method Time Signature Ab Screen Negative [facility] LABORATORY Expires at 06/03/2022 [facility] [id number] on: [facility] LABORATORY Specimen Anatomical Collection Method Collection Time Receive d Time (Source) Location / / Volume Laterality Blood 05/31/2022 1:43 PM 2 1:57 EDT PM EDT Resulting Agency Comment Spec In Lab Dominique Hinds MD BLOOD BANK ORDERABLES Performing Organization Address City/[facility]/ZIP Code Phon e Number [address] Prepare RBC (05/31/2022 1:35 PM EDT)Only the most recent of2 resultswithin the time period is included. P athologist Signature Dispensed? Yes [facility] LABORATORY Specimen Anatomical Collection Method Collection Time Receive d Time (Source) Location / / Volume Laterality Blood 05/31/2022 1:35 PM 2 1:30 EDT PM EDT Dominique Hinds MD BLOOD BANK ORDERABLES Performing Organization Address City/State/ZIP [place] [address] (ABNORMAL) BLOOD GAS 2 VENOUS (05/31/2022 11:24 AM EDT) P athologist Signature pH [place] 7.38 7.32 - [facility] 7.42 [facility] LABORATORY pCO2 [place] 40 (L) 41 - 51 [facility] LABORATORY pO2 [place] 18 (L) 25 - 40 [facility] LABORATORY HCO3 [place] 23.3 mmol/L [facility] LABORATORY BE Marco Antonio -1.8 mmol/L [facility] LABORATORY Hgb Blood Gas 7.0 (L) 13.7 - [facility] 16.5 g/dL [facility] LABORATORY O2HB [place] 24.3 [...] Whole Blood 3.9 3.5 - 5.0 mmol/L [facility] [...] Whole Blood 107 98 - 107 mmol/L [facility] LABORATORY Gluc Whole Bld 204 (H) 65 - 199 mg/dL [facility] LABORATORY Comment: Diabetes: >=200 mg/dL plus symp toms Lactate WB 1.4 0.5 - 2.2 mmol/L [facility] LABORATORY BGas Source Venous [facility] LABORATORY Specimen Anatomical Collection Method Collection Time Receive d Time (Source) Location / / Volume Laterality Blood 05/31/2022 11:24 05/31/2022 AM EDT 11:24 AM EDT Dominique Hinds MD CHEMISTRY ORDERABLES Performing Organization Address City/[facility]/ZIP Code Phon e Number [address] TSH [place] (05/31/2022 11:20 AM EDT) P athologist Signature TSH 1.67 0.27 - 4.20 [facility] LABORATORY Comment: Reference Interval (mcIU/mL): Females: ??First Trimester: 0.23-3.88 ??Second Trimester: 0.22-3.90 ??Third Trimester: 0.44-4.66 Specimen Anatomical Collection Method Collection Time Receive d Time (Source) Location / / Volume Laterality Blood 05/31/2022 11:20 05/31/2022 AM EDT 11:28 AM EDT Resulting Agency Comment Spec In Lab Dominique Hinds MD CHEMISTRY ORDERABLES Performing Organization Address City/[facility]/ZIP Code Phon e Number [address] XR Chest PA & [...] who have questions please contact the health out of school hours care worker that requested your imaging first. [...] ho have questions please contact the health out of school hours care worker that requested your imaging first. Dominique Hinds MD IMG DX ORDERABLES Blue Tube HOLD (05/31/2022 10:50 AM EDT) athologist Signature Blue Hold Sample in [facility] lab. [facility] LABORATORY Specimen Anatomical Collection Method Collection Time Receive d Time (Source) Location / / Volume Laterality Blood Venous Draw / 05/31/2022 10:50 05/31/2022 Unknown AM EDT 11:05 AM EDT Brittany Ramirez MD HEMATOLOGY ORDERABLES Performing Organization Address City/State/ZIP [place] [address] Troponin (05/31/2022 10:50 AM EDT) athologist Signature Troponin-T <0.01 0.00 - 0.00 [facility] ng/mL [facility] LABORATORY Comment: The 99th percentile [...] additional sample may be indicated. Reference: Third [place] Definition of Myocardial Infarction. Journal of the [employer] 2012;60:1581-98 Specimen Anatomical Collection Method Collection Time Receive d Time (Source) Location / / Volume Laterality Blood 05/31/2022 10:50 05/31/2022 AM EDT 11:03 AM EDT Resulting Agency Comment Spec In Lab Dominique Hinds MD CHEMISTRY ORDERABLES Performing Organization Address City/State/ZIP Code Phon e Number [address] Phosphorus (05/31/2022 10:50 AM EDT)Only the most recent of2 resultswithin the time period is included. P athologist Signature Phosphorus 3.2 2.5 - 4.5 [facility] XIAO mg/dL [facility] LABORATORY Specimen Anatomical Collection Method Collection Time Receive d Time (Source) Location / / Volume Laterality Blood 05/31/2022 10:50 05/31/2022 AM EDT 11:03 AM EDT Resulting Agency Comment Spec In Lab Dominique Hinds MD CHEMISTRY ORDERABLES Performing Organization Address City/[facility]/ZIP Code Phon e Number [address] (ABNORMAL) pro-Brain Natriuretic Peptide (05/31/2022 10:50 AM EDT) P athologist Signature ProBNP 1,077 (H) <=449 IL[facility] XIAO pg/mL [facility] LABORATORY Specimen Anatomical Collection Method Collection Time Receive d Time (Source) Location / / Volume Laterality Blood 05/31/2022 10:50 05/31/2022 AM EDT 11:03 AM EDT Resulting Agency Comment Spec In Lab Dominique Hinds MD CHEMISTRY ORDERABLES Performing Organization Address City/[facility]/ZIP Code Phon e Number [address] Lipase (05/31/2022 10:50 AM EDT) P athologist Signature Lipase 41 0 - 60 [facility] X[facility] unit/L [facility] LABORATORY Specimen Anatomical Collection Method Collection Time Receive d Time (Source) Location / / Volume Laterality Blood Venous Draw / 05/31/2022 10:50 05/31/2022 Unknown AM EDT 11:11 AM EDT Resulting Agency Comment Spec In Lab Zain Champion MD CHEMISTRY ORDERABLES Performing Organization Address City/[facility]/[place] [address] (ABNORMAL) Hepatic Function Panel (05/31/2022 10:50 AM EDT) Analysis Performed At Patho logist Time Signature Total Protein 6.4 6.1 - 8.0 IL[facility] XIAO g/dL [facility] LABORATORY Albumin 4.1 3.2 - 5.2 [facility] g/dL [facility] LABORATORY AST 24 0 - 39 [facility] unit/L [facility] LABORATORY ALT 44 0 - 55 [facility] unit/L [facility] LABORATORY Alk Phos 63 40 - 130 [facility] unit/L [facility] LABORATORY Total <0.2 (L) 0.2 - 1.3 [facility] Bilirubin mg/dL [facility] LABORATORY Bili, Direct 0.1 0.0 - 0.3 [facility] mg/dL [facility] LABORATORY Specimen Anatomical Collection Method Collection Time Receive d Time (Source) Location / / Volume Laterality Blood Venous Draw / 05/31/2022 10:50 05/31/2022 Unknown AM EDT 11:11 AM EDT Resulting Agency Comment Spec In Lab Zain Champion MD CHEMISTRY ORDERABLES Performing Organization Address City/[facility]/[place] [address] EKG 12 Lead (05/31/2022 10:11 AM EDT)Only the most recent of3 resultswithin the time period is included. Component Value Ref Range Test Analysis Performed Pathologis t Method Time At Signature Ventricular rate 106 BPM MUSE SYSTEM QRS Duration 122 ms MUSE SYSTEM Q-T Interval 368 ms MUSE SYSTEM QTC Calculated 488 ms MUSE SYSTEM (Bezet) Calculated R [place] -43 degrees MUSE SYSTEM Calculated T [place] 109 degrees MUSE SYSTEM INTERPRETATION Atrial fibrillation with rapid ventricular response MUSE SYSTEM Left axis deviation Minimal voltage criteria for LVH, may be normal variant ( [place] product ) Cannot rule out Anterior infarct , age undetermined Abnormal ECG When compared with ECG of 20-MAY-2022 19:04, No significant change was found I personally reviewed the tracing and edited the fellows int erpretation Confirmed by fellow MD Mike, [place] ([id number]) on 022 8:36:21 PM Confirmed by MD [...] Laterality Volume Narrative 05/20/2022 7:09 PM EDT ?[facility] ? Cardiac Cathete rization/Intervention Report ? Patient Name: Koko Bah. ? Procedure Date: 05/20/2022 ? A #: [id number] ? Primary Physician: Malathi, Abundio S ? Case #: [id number] ? File Name: [id number] ? Catheterization Order Number: [id number] ? [facility] ? Final Report [place], [place] ? Patient Name: ? Koko J. Klarissa uson ? ID#: ?[id number] ? : ?1940 ? Procedure Date: ? [...] procedure was Urgent. The indication for ?the slabber visit is cardiomyo nita. Chest pain symptom [...] ?3.5 guiding catheter and a 3.5 Fr [place] [facility] [address] ??20 Mhz. ??Imaging ?was successful. ??Image [...] A premounted 2. 75 x 30 mm [place] (AMPARO) was deployed ? with a maximum [...] require ?modification of this regimen. C onsult [facility] Interventional Cardiology for ?questions. ?The 1 year [...] note might be different from the original. [facility] Cardiac Catheterization/Intervention Re port Patient Name: Koko Bah Procedure Date: 05/20/2022 A #: [id number] Primary Physician: Abundio Servin Case #: File Name: [id number] Catheterization Order Number: [id number] [facility] Phd Intern [facility] Final Report [place], [place] Patient Name: Koko Bah ID#: [id number] : 1940 Procedure Date: May 20, 2022 [...] a s ASA Class IV. The [facility] clinical frailty scale is 3: Managing [...] e was Urgent. The indication for the slabber visit is cardiomyopathy. C hest pain symptom [...] 3.5 guiding catheter and a 3.5 Fr [facility] [address] 20 Mhz. Imaging was successful. Image [...] atmospheres. A premounted 2.75 x 30 mm [place] ([place]) was deployed with a maximum inflation pressure [...] require modification of this regimen. Consult D [facility] Interventional Cardiology for [...] 123 65 - 199 ILDA XIAO mg/dL [facility] Comment: Supplemental ranges: <140 mg/dL before meals <180 mg/dL all other times of the day Specimen Anatomical Collection Method Collection Time Receive d Time (Source) Location / / Volume Laterality Blood 05/20/2022 5:42 PM 2 5:42 EDT PM EDT Fito Summers MD POINT OF CARE TEST ORDERABLE S Performing Organization Address City/State/[place] [address] (ABNORMAL) BMP w/fasting Glucose (05/20/2022 10:50 AM EDT) P athologist Signature Glucose 152 (H) 65 - 99 [facility] Fasting mg/dL [facility] Comment: ?Fasting* Glucose Interpretive [...] Performing Organization Address City/[facility]/ZIP Code Phon e Number [address] TSH (05/18/2022 8:00 PM EDT) P athologist Signature TSH 2.27 0.27 - 4.20 [facility] mcIU/mL [facility] Comment: Reference Interval (mcIU/mL): Females: ??First Trimester: 0.23-3.88 ??Second Trimester: 0.22-3.90 ??Third Trimester: 0.44-4.66 Specimen Anatomical Collection Method Collection Time Receive d Time (Source) Location / / Volume Laterality Blood 05/18/2022 8:00 PM 8:06 EDT PM EDT Resulting Agency Comment Spec In Lab Fito Summers MD CHEMISTRY ORDERABLES Performing Organization Address [facility] Phon e Number [address] (ABNORMAL) Urinalysis Microscopic Exam [...] Patiño MD URINE ORDERABLES Performing Organization Address City/[facility]/ZIP [facility] Phon e Number [address] XR Chest One View [...] who have questions please contact the health out of school hours care worker that requested your imaging first. [...] ho have questions please contact the health out of school hours care worker that requested your imaging first. Fito Summers [...] ? Medical Center ?[address] ? [place] [address] ?Voice: ?Fax: ? Echocardiogram Report Name: KOKO BAH ?Study Date: 05/16/2022 11:22 AM ? Patient Location: [address] [place], [place] [address] : 1940 ? Height: 67.5 in ? Account: [id number] Age: 81 yrs ? Weight: 176 lb Gender: Male ?BSA: 1.9 m2 Ordering Physician: FITO SUMMERS Referring Physician: MALI FLOIRAN Performed By: Jolene Bernard RDCS Exam Location: [...] and LV systolic dysfunction are new. Procedure Complete-[id number]. Image enhancement Optiso n was used for [...] might be different from the original. [facility] [address] [place] [address] Voice: Fax: Echocardiogram Report Name: KOKO BAH Study Date: 05/2022 11:22 AM Patient Location: [address] [place] [address] : 1940 Height: 67.5 in Account: [id number] Age: 81 yrs Weight: 176 lb Gender: [...] and LV systolic dysfunction are new. Procedure Complete-[id number]. Image enhancement Optiso n was used for [...] pH Art 7.33 (L) 7.35 - [facility] 7.45 [facility] pCO2 Art 41 35 - 45 [facility] LABORATORY pO2 Art 131 (H) 85 - 104 [facility] HCO3 Art 21.1 20.0 - [facility] 26.0 [facility] mmol/L [facility] BE Art -4.8 (L) -3.0 - 3.0 [facility] mmol/L [facility] Hgb Blood Gas 13.4 (L) 13.7 - [facility] 16.5 g/dL [facility] O2HB Art 96.9 94.0 - [facility] 97.0 % [facility] COHB Art 1.4 % [facility] [...] Address City/State/ZIP [place] [address] (ABNORMAL) APTT (05/15/2022 12:30 [...] EDT Resulting Agency Comment Spec In Lab [facility] HEMATOLOGY ORDERABLES Performing Organization Address City/[facility]/ZIP [facility] Phon e Number [address] (ABNORMAL) Prothrombin Time (05/15/2022 12:30 PM EDT) athologist Signature PT 12.9 (H) 9.4 - 12.5 [facility] LABORATORY INR 1.1 [facility] [...] EDT Resulting Agency Comment Spec In Lab [facility] HEMATOLOGY ORDERABLES Performing Organization Address City/[facility]/ZIP [facility] [place] [address] Gold Tube HOLD (05/15/2022 12:20 PM EDT) athologist Signature Gold Hold Sample in [facility]. [facility] Specimen Anatomical Collection Method Collection Time Receive d Time (Source) Location / / Volume Laterality Blood No Charge / 05/15/2022 12:20 05/15/2022 Unknown PM EDT 12:20 PM EDT Lc TRIPP CHEMISTRY ORDERABLES Performing Organization Address City/State/ZIP [place] [address] CK (05/15/2022 12:00 PM EDT) P athologist Signature CK, Total 87 0 - 200 [facility] unit/L [facility] Specimen Anatomical Collection Method Collection Time Receive d Time (Source) Location / / Volume Laterality Blood Venous Draw / 05/15/2022 12:00 05/15/2022 Unknown PM EDT 12:19 PM EDT Resulting Agency Comment Spec In Lab Fito Summers MD CHEMISTRY ORDERABLES Performing Organization Address City/[facility] [place] [address] Film Library- Storage Only CT Abdomen (05/15/2022 9:32 AM EDT) Specimen (Source) Anatomical Location Collection Method / Collectio n Time Received Time / Laterality Volume Narrative RAD - 05/15/2022 9:32 AM EDT This exam is auto-finalizing. It's purpo se is for storage only. Matt Branham MD [facility] FILM LIBRARY ORDERABLES Performing Organization Address [facility] Code Phon e Number [employer] [place], [place] Film Library- Storage Only DX Chest (05/15/2022 9:31 AM EDT) Specimen (Source) Anatomical Location Collection Method / Collectio n Time Received Time / Laterality Volume Narrative RAD - 05/15/2022 9:31 AM EDT This exam is auto-finalizing. It's purpo se is for storage only. Matt Branham MD IM FILM LIBRARY ORDERABLES Performing Organization Address City/[facility]/ZIP Code Phon e Number [place], [place] from Last 3 Months Insurance Payer Benefit Plan / Subscriber ID Effective Phone Address T ype Group Dates MEDICARE MEDICARE PART A [id number] 2007-Pres [id number] [facility] [place] [phone] [facility] [id number] 2007-Pres [phone] [address] [employer] [address] [place] [address] Advance Directives Latest Code Status on File [...] capacity to make decision: Yes 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
--- OUTSIDE RECORDS SUMMARY | 2022-07-26 10:51 | XMS_ITS | Encounter Summary ---
:1940 Author Organization [facility] [place] [address] Care Team Providers Name Role Phone Bobby Das MD Primary Care Provider Reason for Referral Diagnostic Test (Routine) - Authorized Specialty Diagnoses / Procedures Referred By Contact Refer red To Contact Cardiology Diagnoses HFrEF (heart failure with reduced ejection fraction) Alan Reid MD [facility] Non-Inv Card Lab Procedures [place] [address] [place] [address] Fax: Referral ID Status Reason Start Expiration Visits Visits Date Date Requested Authorized [id number] Authorized Specialty 06/13/2022 06/13/2023 1 1 Service Requested Reason for Visit Consultation (Routine) - Closed Specialty Diagnoses / Procedures Referred By Contact Refer red To Contact Cardiology Diagnoses HFrEF (heart failure with reduced ejection fraction) Paroxysmal atrial fibrillation Post-hospital follow-up, s/p PCI with stenting, heart failure Nasrin Parra PA [facility] Cardiology 4a [facility] [place] [address] [place] [address] Referral ID Status Reason Start Date Expiration Date Visits V isits Requested Authorized [id number] Closed Consult, 05/21/2022 05/21/2023 1 1 Test & Treat Encounter Details Date Type Department Care Team Description 06/13/2022 Office Visit Cardiology at [facility] Alan Reid Coronary artery disease invo lving [place] coronary artery of [place] heart without angina pectoris; [facility] MD Kurt HFrEF (heart failure with reduced ejecti on fraction); Drive [facility] Permanent [place] [address] CARDIOLOGY [phone] [place], [place] [address] Social History Tobacco Use Types [...] original note were not included. [facility] [place] [phone] CARDIOLOGY OUTPATIENT PROGRESS NOTE PRIMARY CARE PROVIDER: Bobby Das MD REFERRING PROVIDER: Nasrin Parra PROBLEM LIST: Patient Active Problem List Diagnosis ??? Coronary artery disease involving [place] coronary artery of [place] heart without angina pectoris 05/20/22 Cath * [...] valve prolapse) s/p repair Surgery done at [facility] in 2000 ??? Hypertriglyceridemia ??? [...] 3 ??? fluticasone propionate (FLONASE) 50 mcg/actuation [place], Suspension 1 spray by Each Nare route [...] healing well. Markedly diminished left radial pulse. ACCOUNT DIRECTOR: Normal mentation. Psych: Appropriate affect. Labs: Lab [...] device therapy possiblyincluding AV node ablation and MANAGER WOUND-D. Coronary artery disease involving [place] coronary artery of [place] heart without angina pectoris His coronary disease [...] for consideration of AV node ablation and MANAGER WOUND-D Patient Instructions ??? Your new medication is [...] for consideration of AV node ablation and MANAGER WOUND-D Assessment & Plan Note - Alan Reid MD - 06/13/2022 10:22 AM EDT Associated Problem(s): Coronary artery disease involving [place] coronary artery of [place] heart without angina pectoris His coronary disease [...] device therapy possiblyincluding AV node ablation and MANAGER WOUND-D. documented in this encounter Plan of Treatment Upcoming Encounters Date Type Specialty Care Team Description 08/08/2022 Office Visit Gastroenterology Negra Collins MD [facility] DR GASTROENTEROLOGY DEPT [place], [place] [address] (Wo rk) 09/05/2022 Appointment Cardiology Trinity Reid MD [facility] CARDIOLOGY [place], [place] [address] (Wo rk) 09/05/2022 Office Visit Cardiology Trinity Reid MD [facility] CARDIOLOGY [place], [place] [address] (Wo rk) Scheduled Orders Name Type Priority Associated Order Schedule Diagnoses Echocardiogram Echocardiography Routine HFrEF (heart Expected: Transthoracic failure with 08/13/2022, reduced ejection Expires: fraction) 02/12/2023 documented as of this encounter Visit Diagnoses Diagnosis Coronary artery disease involving [place] coronary artery of [place] heart without angina pectoris HFrEF (heart failure with reduced ejecti on fraction) Permanent atrial fibrillation Atrial fibrillation documented in this encounter 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
--- OUTSIDE RECORDS SUMMARY | 2022-07-26 10:52 | XMS_ITS | Encounter Summary ---
:1940 Author Organization [facility] [place] [address] Care Team Providers Name Role Phone Bobby Das MD Primary Care Provider Reason for Visit Reason Comments Dizziness Auth/Cert Specialty Diagnoses / Procedures Referred By Contact Refer red To Contact Diagnoses GIB (gastrointestinal bleeding) Abe [facility] [place] [address] Referral ID Status Reason Start Date Expiration Date Visits Requ ested Visits Authorized [id number] 1 1 Encounter Details Date Type Department Care Team Description 05/31/2022 Surgery Gastroenterology at [facility] Giovani Ponce, EGD, UPPER GI [facility] Bobby [place]ill[place] [address] [facility] [phone] [address] [place] [address] Social History Tobacco Use Types Packs/Day [...] switching to a different bloodthinner with the parking worker outpatient. Call your doctor or seek medical [...] switchingto a different blood thinner with your parking worker as an outpatient Stopped Medications - Aspirin - Valsartan - Speak with your parking worker about the timing of restarting this Follow-up Appointments Future Appointments Date Time Provider Department Center 06/10/2022 11:00 AM Loretta Cohen MD [facility] 06/13/2022 7:30 AM Edson [place]os [place] [facility] VAS LAB [facility] 06/13/2022 8:00 AM Fito Summers MD [facility] V SURG [facility] 06/13/2022 10:00 AM Alan Reid MD [facility] CARD [address] [place] [address] Your Inpatient Medical Team at [facility] Name(s) of your inpatient provider(s): Dr. John Ames For questions regarding issues relating to your hospitalization on the Hospital Medicine Service, please contact your inpatient physician through the [facility] Material Clerk [phone]. Issues after hours and on weekends will be handled by the Hospitalist staff on-call. Your Primary Care Provider Bobby Das MD [phone] Future Appointments and Orders Future Appointments and Orders Future Appointments Provider Department Dept Phone 06/10/2022 11:00 AM Loretta Cohen MD Dermatology at [facility] Arrive at: Outside Plant Engineer 3 [place] [phone] 06/13/2022 7:30 AM Edson [place]os [place] Vascular Lab at [facility] Arrive at: Outside Plant Engineer Area 06/13/2022 8:00 AM Fito Summers MD Vascular Surgery at [facility] Arrive at: Outside Plant Engineer Area 06/13/2022 10:00 AM Alan Reid MD Cardiology at [facility] Arrive at: Outside Plant Engineer Area 4A [phone] For questions regarding this document or issues relating to this hospitalization on the Medical Service, please contact your inpatient physician through the [facility] Material Clerk . Issues after hours and on weekends [...] switching to a different bloodthinner with the parking worker outpatient. Call your doctor or seek medical [...] switchingto a different blood thinner with your parking worker as an outpatient Stopped Medications - Aspirin - Valsartan - Speak with your parking worker about the timing of restarting this Follow-up Appointments Future Appointments Date Time Provider Department Center 06/10/2022 11:00 AM Loretta Cohen MD [facility] 06/13/2022 7:30 AM Edson [place] [facility] VAS LAB [facility] 06/13/2022 8:00 AM Fito Summers MD [facility] V SURG [facility] 06/13/2022 10:00 AM Alan Reid MD [facility] CARD 4A [facility] Your Inpatient Medical Team at [facility] Name(s) of your inpatient provider(s): Dr. John Ames For questions regarding issues relating to your hospitalization on the Hospital Medicine Service, please contact your inpatient physician through the [facility] Material Clerk [phone]. Issues after hours and on weekends will be handled by the Hospitalist staff on-call. Your Primary Care Provider Bobby Das MD [phone] documented in this encounter Medications at Time [...] 04/12/20 21 (FLONASE) 50 mcg/actuation Nare route [place], Suspension daily as needed. fluorouraciL (EFUDEX) 5 [...] spent >30 minutes (Day of Discharge Code 04711) involved in the final examination of the [...] not included. [facility] Medicine Progress Note Reyno Team - Pager #[phone] Admit Date: 05/31/2022 Name: Koko Zamora : [...] cardiology to discuss antiplatelet (ISO bleed and residential), following. ?? #CAD s/p stenting recently #HFrEF [...] Kurt Ames MD Internal Medicine, PGY-1 Medicine Reyno Team #[id number] Associated attestation - John Jolley MD - 06/01/2022 5:02 PM EDT [facility] Medicine -- Attending Progress Note Please [...] not included. [facility] Medicine (#[id number]) History and Physical Patient info: Name: Koko Zamora : 1940 PCP: Bobby Das MD PCP phone number: [phone] Date of Admission: 05/31/2022 ( Hospital Day [...] 11 ??? fluticasone propionate (FLONASE) 50 mcg/actuation [place], Suspension as needed. ??? fluorouraciL (EFUDEX) 5 [...] Gas) No results found for: PHART, PO2ART, OLK1LJT, [id number] Microbiology: N/A Pertinent radiology/diagnostic studies: Recent prior [...] 05/31/2022 [facility] Medicine # [id number] Attending Staff [...] 05/31/2022 3:58 PM EDT [facility]. Upon arrival [...] 10:50 AM EDT Pt brought to by fresh meat grader Brittany Ramirez MD - 05/31/2022 10:40 [...] who have questions please contact the health clinical care leader that requested your imaging first. Chest PA [...] who have questions please contact the health clinical care leader that requested your imaging first. Course as [...] recommendations from Brittany Tavares MD Resident 05/31/22 [id number] Associated attestation - Regina Hinds MD - [...] soft blood pressures, MD made aware. LBM SUMAC TANNER. 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 Patient reported blurry/hazy [...] note were not included. Former[place] [address] INPATIENT CARDIOLOGY CONSULT NOTE Date of Consultation: 06/01/2022 Admit Date: 05/31/2022 Place of Service: IS86/IS86-A Referring Attending: REGINA HINDS COLEMAN W FRIEDMAN, HARLEY P Responsible Career Discovery Teacher: Dr. Rizo Hospital Day 1 day Reason for Consult: Antiplatelet/anticoagulation s/p pci and afib, with GI bleed HPI: Koko Zamora is a 81 y.o. male with a cardiac history significant for remote mitral valve repair (2000), pre-DM, HLD, significant alcohol use, tobacco use, Afib on xarelto, ischemic systolic heartfailure (recent [facility] 05/20/2022 with 2V disease OM1 and distal RCA, had ostial LCX and LCx stent) who presented to [facility] on 05/31/2022 for GI bleed. Patient presented [...] time ??? fluticasone propionate (FLONASE) 50 mcg/actuation [place], Suspension 1 spray by Each Nare route [...] from 05/31/2022 in Intermediate Special Care Unit [facility] ED to Hosp-Admission (Discharged) from 05/15/2022 in Intermediate Cardiac Care Unit [facility] Weight 77.1 kg (170 lb) [...] 3.5 guiding catheter and a 3.5 Fr [facility] [place] [address] 20 Mhz. Imaging was successful. Image [...] A premounted 2.75 x 30 mm Rudy Parke (AMPARO) was deployed with a maximum inflation [...] may require modification of this regimen. Consult [facility] Interventional Cardiology for questions. The 1 year [...] Unknown source. has had a [facility] with stent placed and revascularization of left [...] who have questions please contact the health clinical care leader that requested your imaging first. [employer] 48 [...] who have questions please contact the health clinical care leader that requested your imaging first. Recent Labs [...] ischemic systolic heart failure (recent [facility] 05/20/2022 with 2V disease OM1 and distal RCA, had ostial LCX and LCx stent), recent admission for acutelimb ischemia LLE, where he had left common femoral transverse arteriotomy and primary repair, thromboembolectomy of the SFA, profunda and common femoral artery with 4 compartment fasciotomies, who presented to [facility] on 05/31/2022 for GI bleed. Cardiology consulted [...] attestation for additional insight. Rossy Anaya MD [facility] Assessment Technician, PGY-5 Inpatient Cardiology Consults Pager #[phone] Please check Qgenda for on-call cardiology consults [...] A&Ox 4. On room air. VSS. LBM: SUMAC TANNER. Adequate urine output, urinal at bedside, flomax [...] surrogate would be surrogate decision maker per [place] surrogate decision making law. (Only good for 180 days) Any patient receiving care in [place] must abide by [place] law. The hierarchy [...] The agent with financial power of employment attorney or a conservator appointed in accordance [...] walker - rolling Home Address confirmed as: [address] [place] [phone] Social & Family Supports: All names listed below confirmed with patient as current and correct Extended Emergency Contact Information Primary Emergency Contact: Ursula Zamora Address: [address] [place] [phone] [facility] Relation: Spouse Current Care Provided [...] Type: *No Product type* / Secondary Insurance: [employer] Secondary Insurance? (Only Medicare A&B): Yes ; Prescription Coverage: Yes Preferred Pharmacy: [facility] [place], [place] - [address] [place] [address] [place] [id number] [place] Status: Patient is a : No Primary Care Provider: Bobby Das MD [phone] Patient/Caregiver Goals of Treatment: Patient plans to [...] with transition of care planning. ASH [place] Supervisor Solder Making [facility] Medicine/ Medical Specialties [...] Operative Note Patient Name: Koko Zamora : [id number] MR#: [id number] Case Date: 05/31/2022 Surgeon: Surgeon(s) and Role: [...] sounds, tympanic to percussion RECTAL: performed with granite cutter apprentice present, no overt masses, fissures, external hemorrhoids, [...] who have questions please contact the health clinical care leader that requested your imaging first. Abdomen & [...] MD [facility] GASTROENTEROLOGY DEPT [place], [place] [address] (Wo rk) 09/05/2022 Appointment Cardiology Trinity Reid MD [facility] CARDIOLOGY [place], [place] [address] (Wo rk) 09/05/2022 Office Visit Cardiology Trinity Reid MD [facility] CARDIOLOGY [place], [place] [address] (Wo rk) documented as of [...] LABORATORY Neutr Abs (ANC) 4.44 1.70 - [facility] 6.10 [facility] x10(3)/[facility] LABORATORY Lymphocytes % 25.2 % [facility] LABORATORY Lymphocytes Abs 1.8 0.9 - 3.2 [facility] x10(3)/[facility] LABORATORY Monocytes % 10.0 % [facility] LABORATORY Monocyte Abs 0.7 0.3 - 0.9 [facility] x10(3)/[facility] LABORATORY Eosinophils % 2.1 % [facility] LABORATORY Eosinophils Abs 0.2 0.0 - 0.4 [facility] x10(3)/[facility] LABORATORY Basophils % 0.7 % [facility] LABORATORY Basophils Abs 0.0 0.0 - 0.1 [facility] x10(3)/[facility] LABORATORY Immature Gran % 0.70 % [...] Organization Address City/State/[place] [address] (ABNORMAL) Hemogram (06/02/2022 8:20 AM EDT) Analysis Performed At Patho logist Time Signature WBC 7.2 4.0 - 9.5 [facility] x10(3)/[facility] LABORATORY RBC 2.74 (L) 4.58 - [facility] 5.54 [facility] x10(6)/[facility] LABORATORY Hemoglobin 8.7 (L) 13.7 - [facility] 16.5 g/dL [facility] LABORATORY Hematocrit 25.7 (L) 40.5 - [facility] [place] 48.5 % [facility] LABORATORY MCV 93.8 (H) 82.9 - [facility] [place] 93.1 [facility] LABORATORY MCH 31.8 27.5 - [place] 32.1 pg [facility] LABORATORY MCHC 33.9 32.0 - [place] [place] 35.7 g/dL [facility] LABORATORY Platelets 260 145 - 357 [facility] x10(3)/[facility] LABORATORY RDWSD 51.0 (H) 36.0 - [place] 45.0 [facility] LABORATORY RDWCV 14.9 (H) 11.4 - [facility] XIAO 13.8 % [facility] LABORATORY MPV 10.0 7.6 - 12.9 [facility] LABORATORY nRBC % Auto 0.0 % [facility] LABORATORY nRBC Abs Auto 0.000 0.000 - [facility] 0.000 [facility] x10(3)/[facility] LABORATORY Specimen Anatomical Collection Method Collection Time Receive d Time (Source) Location / / Volume Laterality Blood 06/02/2022 8:20 AM 8:25 EDT AM EDT Resulting Agency Comment Spec In Lab Kurt Ames MD HEMATOLOGY ORDERABLES Performing Organization Address City/State/[place] [address] Heparin (unfractionated) Level (06/02/2022 6:30 AM EDT) P athologist Signature Heparin UFH 0.39 IU/mL [facility] [...] Victor MD HEMATOLOGY ORDERABLES Performing Organization Address City/[facility]/ZIP Code Phon e Number [address] Heparin (unfractionated) Level (06/02/2022 [...] Victor MD HEMATOLOGY ORDERABLES Performing Organization Address City/[facility]/[place] [address] Magnesium (06/02/2022 12:30 AM EDT) P athologist Signature Magnesium 0.83 0.69 - 1.07 [facility] mmol/L [facility] LABORATORY Specimen Anatomical Collection Method Collection Time Receive d Time (Source) Location / / Volume Laterality Blood 06/02/2022 12:30 06/02/2022 AM EDT 12:40 AM EDT Resulting Agency Comment Spec In Lab Mahendra Victor MD CHEMISTRY ORDERABLES Performing Organization Address City/State/[place] [address] (ABNORMAL) Basic Metabolic Panel (non-fasting) (06/02/2022 12:30 AM EDT) P athologist Signature Glucose Lvl 151 65 - 199 [facility] mg/dL [facility] LABORATORY Comment: Diabetes: >=200 mg/dL plus [...] Organization Address City/State/[place] [address] (ABNORMAL) Differential, Automated (06/01/2022 7:29 PM EDT) athologist Signature Neutrophils % 68.8 % [facility] LABORATORY Neutr Abs (ANC) 5.34 1.70 - [facility] 6.10 [facility] x10(3)/[facility] LABORATORY Lymphocytes % 19.6 % [facility] LABORATORY Lymphocytes Abs 1.5 0.9 - 3.2 [facility] x10(3)/[facility] LABORATORY Monocytes % 8.1 % [facility] LABORATORY Monocyte Abs 0.6 0.3 - 0.9 [facility] x10(3)/[facility] LABORATORY Eosinophils % 1.8 % [facility] LABORATORY Eosinophils Abs 0.1 0.0 - 0.4 [facility] x10(3)/[facility] LABORATORY Basophils % 0.8 % [facility] LABORATORY Basophils Abs 0.1 0.0 - 0.1 [facility] x10(3)/[facility] LABORATORY Immature Gran % 0.90 % [...] Organization Address City/State/[place] [address] (ABNORMAL) Hemogram (06/01/2022 7:29 PM EDT) Analysis Performed At Patho logist Time Signature WBC 7.8 4.0 - 9.5 [facility] LABORATORY RBC 2.65 (L) 4.58 - [facility] 5.54 [facility] x10(6)/[facility] LABORATORY Hemoglobin 8.3 (L) 13.7 - [facility] 16.5 g/dL [facility] LABORATORY Hematocrit 24.8 (L) 40.5 - [facility] 48.5 % [facility] LABORATORY MCV 93.6 (H) 82.9 - [facility] 93.1 [facility] LABORATORY MCH 31.3 27.5 - [facility] 32.1 pg [facility] LABORATORY MCHC 33.5 32.0 - [facility] 35.7 g/dL [facility] LABORATORY Platelets 263 145 - 357 [facility] x10(3)/[facility] LABORATORY RDWSD 52.8 (H) 36.0 - [facility] 45.0 [facility] LABORATORY RDWCV 15.4 (H) 11.4 - [facility] 13.8 % [facility] LABORATORY MPV 10.4 7.6 - 12.9 [facility] nRBC % Auto 0.0 % [facility] LABORATORY nRBC Abs Auto 0.000 0.000 - [facility] [place] 0.000 [facility] x10(3)/[facility] LABORATORY Specimen Anatomical Collection Method Collection Time Receive d Time (Source) Location / / Volume Laterality Blood 06/01/2022 7:29 PM 2 7:29 EDT PM EDT Resulting Agency Comment Spec In Lab Kurt Ames MD HEMATOLOGY ORDERABLES Performing Organization Address City/State/ZIP Code Phon e Number [address] Heparin (unfractionated) Level (06/01/2022 [...] Organization Address City/State/ZIP Code Phon e Number [address] (ABNORMAL) Heparin (unfractionated) Level (06/01/2022 11:32 AM EDT) Patholo gist Method Time Signature Heparin UFH 1.05 IU/mL [facility] (Critical) [facility] LABORATORY Comment: Critical Result called by [...] Organization Address City/State/[place] [address] (ABNORMAL) Differential, Automated (06/01/2022 5:56 AM EDT) [facility] Method Time Signature Neutrophils % 62.7 % [facility] LABORATORY Neutr Abs (ANC) 6.11 (H) 1.70 - [facility] 6.10 [facility] x10(3)/[facility] LABORATORY Lymphocytes % 23.5 % [facility] LABORATORY Lymphocytes Abs 2.3 0.9 - 3.2 [facility] x10(3)/[facility] LABORATORY Monocytes % 10.0 % [facility] LABORATORY Monocyte Abs 1.0 (H) 0.3 - 0.9 [facility] x10(3)/[facility] LABORATORY Eosinophils % 2.2 % [facility] LABORATORY Eosinophils Abs 0.2 0.0 - 0.4 [facility] x10(3)/[facility] LABORATORY Basophils % 0.9 % [facility] LABORATORY Basophils Abs 0.1 0.0 - 0.1 [facility] x10(3)/[facility] LABORATORY Immature Gran % 0.70 % [...] Organization Address City/State/[place] [address] (ABNORMAL) Hemogram (06/01/2022 5:56 AM EDT) Analysis Performed At Patho logist Time Signature WBC 9.7 (H) 4.0 - 9.5 [facility] x10(3)/[facility] LABORATORY RBC 2.83 (L) 4.58 - [facility] x10(6)/[facility] LABORATORY Hemoglobin 9.0 (L) 13.7 - [facility] 16.5 g/dL [facility] LABORATORY Hematocrit 26.7 (L) 40.5 - [facility] 48.5 % [facility] LABORATORY MCV 94.3 (H) 82.9 - [facility] 93.1 [facility] LABORATORY MCH 31.8 27.5 - [facility] 32.1 pg [facility] LABORATORY MCHC 33.7 32.0 - [facility] 35.7 g/dL [facility] LABORATORY Platelets 250 145 - 357 [facility] x10(3)/[facility] LABORATORY RDWSD 54.3 (H) 36.0 - [facility] 45.0 [facility] LABORATORY RDWCV 15.9 (H) 11.4 - [facility] 13.8 % [facility] LABORATORY MPV 10.5 7.6 - 12.9 [facility] LABORATORY nRBC % Auto 0.0 % [facility] LABORATORY nRBC Abs Auto 0.000 0.000 - [facility] [place] 0.000 [facility] x10(3)/[facility] LABORATORY Specimen Anatomical Collection Method Collection Time Receive d Time (Source) Location / / Volume Laterality Blood 06/01/2022 5:56 AM 2 6:05 EDT AM EDT Resulting Agency Comment Spec In Lab Arpita Valle MD HEMATOLOGY ORDERABLES Performing Organization Address City/State/[place] [address] Heparin (unfractionated) Level (06/01/2022 4:30 AM EDT) P athologist Signature Heparin UFH 0.68 IU/mL [facility] [...] Victor MD HEMATOLOGY ORDERABLES Performing Organization Address City/[facility]/[place] [address] (ABNORMAL) Urinalysis with reflex Culture (06/01/2022 4:00 AM EDT) Patholo gist Method Time Signature Glucose UA 500 Negative [facility] (Critical) mg/dL [facility] LABORATORY Comment: Urinalysis result NOT critical [facility] Nitrite UA Negative Negative [facility] LABORATORY Leukocytes UA Negative Negative [facility] LABORATORY Appearance UA Clear Clear [facility] LABORATORY Spec [place] UA >=1.030 (A) 1.005 - 1.030 [facility] LABORATORY Color UA Yellow Yellow [facility] LABORATORY Culture Reflexed No [facility] LABORATORY Specimen Anatomical Collection Method Collection Time Receive d Time (Source) Location / / Volume Laterality Clean Catch 06/01/2022 4:00 AM 2 4:26 Urine EDT AM EDT Resulting Agency Comment Spec In Lab Mahendra Victor MD URINE ORDERABLES Performing Organization Address City/[facility]/ZIP Code Phon e Number [address] Magnesium (06/01/2022 1:00 AM EDT) athologist Signature Magnesium 0.93 0.69 - 1.07 [facility] mmol/L [facility] LABORATORY Specimen Anatomical Collection Method Collection Time Receive d Time (Source) Location / / Volume Laterality Blood 06/01/2022 1:00 AM 2 1:37 EDT AM EDT Resulting Agency Comment Spec In Lab Mahendra Victor MD CHEMISTRY ORDERABLES Performing Organization Address City/[facility] Phon e Number [address] (ABNORMAL) Basic Metabolic Panel (non-fasting) (06/01/2022 1:00 AM EDT) athologist Signature Glucose Lvl 148 65 - 199 [facility] mg/dL [facility] LABORATORY Comment: Diabetes: >=200 mg/dL plus [...] Organization Address City/State/[place] [address] (ABNORMAL) Differential, Automated (06/01/2022 12:00 AM EDT) P athologist Signature Neutrophils % 64.6 % [facility] LABORATORY Neutr Abs (ANC) 5.60 1.70 - [facility] 6.10 [facility] x10(3)/[facility] LABORATORY Lymphocytes % 22.4 % [facility] LABORATORY Lymphocytes Abs 1.9 0.9 - 3.2 [facility] x10(3)/[facility] LABORATORY Monocytes % 9.5 % [facility] [facility] Monocyte Abs 0.8 0.3 - 0.9 [facility] x10(3)/[facility] LABORATORY Eosinophils % 2.1 % [facility] Eosinophils Abs 0.2 0.0 - 0.4 [facility] x10(3)/[facility] LABORATORY Basophils % 0.6 % [facility] Basophils Abs 0.0 0.0 - 0.1 [facility] x10(3)/[facility] LABORATORY Immature Gran % 0.80 % [...] - 0.04 x10(3)/[facility] LABORATORY Specimen (Source) Anatomical Collection Method Collection Time Re ceived Time Location / / Volume Laterality Blood 06/01/2022 06/01/2022 12:1 0 AM EDT Resulting Agency Comment Spec In Lab Arpita Valle MD HEMATOLOGY ORDERABLES Performing Organization Address City/State/[place] [address] (ABNORMAL) Hemogram (06/01/2022 12:00 AM EDT) Analysis Performed At Patho logist Time Signature WBC 8.7 4.0 - 9.5 [facility] x10(3)/[facility] LABORATORY RBC 2.77 (L) 4.58 - [facility] 5.54 [facility] x10(6)/[facility] LABORATORY Hemoglobin 8.6 (L) 13.7 - [place] X[place] 16.5 g/dL [facility] Hematocrit 25.7 (L) 40.5 - [place] X[place] 48.5 % [facility] MCV 92.8 82.9 - [facility] 93.1 [facility] LABORATORY MCH 31.0 27.5 - [place] 32.1 pg [facility] MCHC 33.5 32.0 - [facility] 35.7 g/dL [facility] Platelets 260 145 - 357 [facility] x10(3)/[facility] LABORATORY RDWSD 51.9 (H) 36.0 - [facility] 45.0 [facility] LABORATORY RDWCV 15.5 (H) 11.4 - [facility] 13.8 % [facility] MPV 10.4 7.6 - 12.9 [facility] LABORATORY nRBC % Auto 0.0 % [facility] nRBC Abs Auto 0.000 0.000 - [facility] 0.000 [facility] x10(3)/[facility] LABORATORY Specimen (Source) Anatomical Collection Method Collection Time Re ceived Time Location / / Volume Laterality Blood 06/01/2022 06/01/2022 12:1 0 AM EDT Resulting Agency Comment Spec In Lab Arpita Valle MD HEMATOLOGY ORDERABLES Performing Organization Address City/State/[place] [address] (ABNORMAL) Differential, Automated (05/31/2022 9:17 PM EDT) P athologist Signature Neutrophils % 59.6 % [facility] Neutr Abs (ANC) 3.98 1.70 - [place] 6.10 [facility] x10(3)/[facility] LABORATORY Lymphocytes % 27.5 % [facility] Lymphocytes Abs 1.8 0.9 - 3.2 [facility] x10(3)/[facility]ORATORY Monocytes % 9.1 % [facility] Monocyte Abs 0.6 0.3 - 0.9 [facility] x10(3)/[facility] LABORATORY Eosinophils % 2.4 % [facility] Eosinophils Abs 0.2 0.0 - 0.4 [facility] x10(3)/[facility]ORATORY Basophils % 0.7 % [facility] Basophils Abs 0.0 0.0 - 0.1 [facility] x10(3)/[facility] LABORATORY Immature Gran % 0.70 % [...] Organization Address City/State/[place] [address] (ABNORMAL) Hemogram (05/31/2022 9:17 PM EDT) Analysis Performed At Patho logist Time Signature WBC 6.7 4.0 - 9.5 [facility] x10(3)/[facility] LABORATORY RBC 2.74 (L) 4.58 - [facility] 5.54 [facility] x10(6)/[facility] LABORATORY Hemoglobin 8.5 (L) 13.7 - [facility] 16.5 g/dL [facility] Hematocrit 25.7 (L) 40.5 - [facility] 48.5 % [facility] MCV 93.8 (H) 82.9 - [facility] 93.1 fL [facility] MCH 31.0 27.5 - [facility] 32.1 pg [facility] MCHC 33.1 32.0 - [place] HAG[place] 35.7 g/dL [facility] Platelets 233 145 - 357 [place]AG[place] x10(3)/[facility] LABORATORY RDWSD 51.9 (H) 36.0 - [place] HAG[place] 45.0 [facility] RDWCV 15.3 (H) 11.4 - [facility] XIAO 13.8 % [facility] MPV 10.3 7.6 - 12.9 [facility] XIAO [facility] LABORATORY nRBC % Auto 0.0 % [facility] nRBC Abs Auto 0.000 0.000 - [place] 0.000 [facility] x10(3)/[facility] LABORATORY Specimen Anatomical Collection Method Collection Time Receive d Time (Source) Location / / Volume Laterality Blood 05/31/2022 9:17 PM 9:25 EDT PM EDT Resulting Agency Comment Spec In Lab Arpita Valle MD HEMATOLOGY ORDERABLES Performing Organization Address City/State/[place] [address] Transfuse RBC (05/31/2022 7:36 PM EDT) Regina Hinds MD NURSING TREATMENT ORDERABLES - BLOOD ADMIN Transfuse RBC (05/31/2022 7:36 PM EDT) Regina Hinds MD NURSING TREATMENT ORDERABLES - BLOOD ADMIN UPPER GI ENDOSCOPY (05/31/2022 3:37 PM EDT) Component Value Ref Test Analysis Performed At [facility] Range Method Time Signature UPPER GI [facility] ENDOSCOPY Endoscopy Procedure Date: 05/31/2022 3:37 PM ? Patient Name: Koko Zamora ? Date of : 1940 ? Age: 81 ? Order #: [id number] ? Instrument Name: [id number] ? Procedure: ? Upper GI endoscopy Indications: [...] Procedure Code(s): ? --- Professional --- ? 93688, Esophagogastroduode noscopy, ? flexible, transoral; with control [...] stomach ? and duodenum CPT copyright 2021 [employer]. All rights reserved. The codes documented in this report are preliminary and upon insurance coder review may be revised to meet [...] who have questions please contact the health clinical care leader that requested your imaging first. ? Narrative 05/31/2022 2:39 PM EDT EXAMINATION: CT ABDOMEN AND PELVIS WWO CONTRAST (GI BLEED) CLINICAL HISTORY: Significant Hb drop. U nknown source. has had a [facility] with stent placed and revascularization of left [...] enlarged lymph nodes. Vasculature: Patent common iliac, manufacturing intern al iliac, and common femoral arteries [...] enlarged lymph nodes. Vasculature: Patent common iliac, manufacturing intern al iliac, and common femoral arteries [...] ho have questions please contact the health clinical care leader that requested your imaging first. Regina Hinds MD G CT ORDERABLES Type and Screen Validity (05/31/2022 1:43 PM EDT) [facility] gist Method Time Signature T&S only valid [facility] at [facility] Comment: This Type and Screen result is only valid at the [facility] Specimen Anatomical Collection Method Collection Time Receive d Time (Source) Location / / Volume Laterality Blood 05/31/2022 1:43 PM 2 1:57 EDT PM EDT Resulting Agency Comment Spec In Lab Regina Hinds MD BLOOD BANK ORDERABLES Performing Organization Address City/State/[place] [address] ABORH Recheck Status (05/31/2022 1:43 PM EDT) [facility] Method Time Signature ABORH Type Completed [facility] LABORATORY Specimen Anatomical Collection Method Collection Time Receive d Time (Source) Location / / Volume Laterality Blood 05/31/2022 1:43 PM 2 1:57 EDT PM EDT Resulting Agency Comment Spec In Lab Regina Hinds MD BLOOD BANK ORDERABLES Performing Organization Address City/[facility]/[place] [address] Antibody screen (05/31/2022 1:43 PM EDT) [facility] Signature Ab Screen Negative [facility] LABORATORY Expires at 06/03/2022 [facility] [id number] on: [facility] Specimen Anatomical Collection Method Collection Time Receive d Time (Source) Location / / Volume Laterality Blood 05/31/2022 1:43 PM 2 1:57 EDT PM EDT Resulting Agency Comment Spec In Lab Regina Hinds MD BLOOD BANK ORDERABLES Performing Organization Address City/[facility]/[place] [address] ABO/Rh Typing (05/31/2022 1:43 PM EDT) P athologist Signature ABORh Type O Pos [facility] Specimen Anatomical Collection Method Collection Time Receive d Time (Source) Location / / Volume Laterality Blood 05/31/2022 1:43 PM 2 1:57 EDT PM EDT Resulting Agency Comment Spec In Lab Regina Hinds MD BLOOD BANK ORDERABLES Performing Organization Address City/[facility]/[place] [address] Prepare RBC (05/31/2022 1:35 PM EDT) P athologist Signature Dispensed? Yes [facility] Specimen Anatomical Collection Method Collection Time Receive d Time (Source) Location / / Volume Laterality Blood 05/31/2022 1:35 PM 2 1:30 EDT PM EDT Regina Hinds MD BLOOD BANK ORDERABLES Performing Organization Address City/[facility] [place] [address] Prepare RBC (05/31/2022 1:25 PM EDT) P athologist Signature Dispensed? Yes [facility] Specimen Anatomical Collection Method Collection Time Receive d Time (Source) Location / / Volume Laterality Blood 05/31/2022 1:25 PM 2 1:23 EDT PM EDT Regina Hinds MD BLOOD BANK ORDERABLES Performing Organization Address [facility] Phon e Number [address] (ABNORMAL) Differential, Automated (05/31/2022 12:44 PM EDT) P athologist Signature Neutrophils % 62.0 % [facility] Neutr Abs (ANC) 4.71 1.70 - [facility] 6.10 [facility] x10(3)/[facility] LABORATORY Lymphocytes % 24.1 % [facility] Lymphocytes Abs 1.8 0.9 - 3.2 [facility] x10(3)/[facility] LABORATORY Monocytes % 10.8 % [facility] Monocyte Abs 0.8 0.3 - 0.9 [facility] x10(3)/[facility] LABORATORY Eosinophils % 1.6 % [facility] Eosinophils Abs 0.1 0.0 - 0.4 [facility] x10(3)/[facility] LABORATORY Basophils % 0.7 % [facility] Basophils Abs 0.0 0.0 - 0.1 [facility] x10(3)/[facility] LABORATORY Immature Gran % 0.80 % [...] Gran Abs 0.06 (H) 0.00 - 0.04 x10(3)/[facility] LABORATORY Specimen Anatomical Collection Method Collection Time Receive d Time (Source) Location / / Volume Laterality Blood 05/31/2022 12:44 05/31/2022 PM EDT 12:57 PM EDT Resulting Agency Comment Spec In Lab Brittany Ramirez MD HEMATOLOGY ORDERABLES Performing Organization Address City/State/[place] [address] (ABNORMAL) Hemogram (05/31/2022 12:44 PM EDT) Analysis Performed At Patho logist Time Signature WBC 7.6 4.0 - 9.5 [facility] x10(3)/[facility] LABORATORY RBC 2.11 (L) 4.58 - [facility] XIAO 5.54 [facility] x10(6)/[facility] LABORATORY Hemoglobin 6.9 (L) 13.7 - [facility] 16.5 g/dL [facility] Hematocrit 20.8 (L) 40.5 - [facility] XIAO 48.5 % [facility] MCV 98.6 (H) 82.9 - [facility] 93.1 [facility] LABORATORY MCH 32.7 (H) 27.5 - [facility] 32.1 pg [facility] MCHC 33.2 32.0 - [facility] 35.7 g/dL [facility] Platelets 255 145 - 357 [facility] x10(3)/[facility] LABORATORY RDWSD 47.7 (H) 36.0 - [facility] 45.0 [facility] LABORATORY RDWCV 13.4 11.4 - [facility] X[facility] 13.8 % [facility]ORY MPV 10.7 7.6 - 12.9 [facility] LABORATORY nRBC % Auto 0.0 % [facility] nRBC Abs Auto 0.000 0.000 - [facility] 0.000 [facility] x10(3)/[facility] LABORATORY Specimen Anatomical Collection Method Collection Time Receive d Time (Source) Location / / Volume Laterality Blood 05/31/2022 12:44 05/31/2022 PM EDT 12:57 PM EDT Resulting Agency Comment Spec In Lab Brittany Ramirez MD HEMATOLOGY ORDERABLES Performing Organization Address City/State/[place] [address] (ABNORMAL) BLOOD GAS 2 VENOUS (05/31/2022 11:24 AM EDT) P athologist Signature pH [place] 7.38 7.32 - [facility] 7.42 [facility] pCO2 [place] 40 (L) 41 - 51 [facility] LABORATORY pO2 [place] 18 (L) 25 - 40 [facility] LABORATORY HCO3 [place] 23.3 mmol/L [facility] BE Marco Antonio -1.8 mmol/L [facility] Hgb Blood Gas 7.0 (L) 13.7 - [facility] 16.5 g/dL [facility] O2HB Marco Antonio 24.3 % ST [...] Whole Blood 3.9 3.5 - 5.0 mmol/L [facility] [...] Whole Blood 107 98 - 107 mmol/L [facility] Gluc Whole Bld 204 (H) 65 - 199 mg/dL [facility] Comment: Diabetes: >=200 mg/dL plus symp toms Lactate WB 1.4 0.5 - 2.2 mmol/L [facility] LABOR[facility]ORY BGas Source Venous [facility] Specimen Anatomical Collection Method Collection Time Receive d Time (Source) Location / / Volume Laterality Blood 05/31/2022 11:24 05/31/2022 AM EDT 11:24 AM EDT Regina Hinds MD CHEMISTRY ORDERABLES Performing Organization Address City/[facility]/ZIP Code Phon e Number [address] TSH [place] (05/31/2022 11:20 AM EDT) P athologist Signature TSH 1.67 0.27 - 4.20 [facility] mcIU/mL [facility] Comment: Reference Interval (mcIU/mL): Females: ??First Trimester: 0.23-3.88 ??Second Trimester: 0.22-3.90 ??Third Trimester: 0.44-4.66 Specimen Anatomical Collection Method Collection Time Receive d Time (Source) Location / / Volume Laterality Blood 05/31/2022 11:20 05/31/2022 AM EDT 11:28 AM EDT Resulting Agency Comment Spec In Lab Regina Hinds MD CHEMISTRY ORDERABLES Performing Organization Address City/[facility]/ZIP Code Phon e Number [address] XR Chest PA & [...] who have questions please contact the health clinical care leader that requested your imaging first. ? Narrative [...] ho have questions please contact the health clinical care leader that requested your imaging first. Regina Hinds MD IMG DX ORDERABLES Lipase (05/31/2022 10:50 AM EDT) athologist Signature Lipase 41 0 - 60 [place] [place] unit/L [facility] Specimen Anatomical Collection Method Collection Time Receive d Time (Source) Location / / Volume Laterality Blood Venous Draw / 05/31/2022 10:50 05/31/2022 Unknown AM EDT 11:11 AM EDT Resulting Agency Comment Spec In Lab Zain Champion MD CHEMISTRY ORDERABLES Performing Organization Address City/State/ZIP Code Phon e Number [place] [id number] HOSPITAL LABORATORY Drive (ABNORMAL) Hepatic Function Panel (05/31/2022 10:50 AM EDT) Analysis Performed At Patho logist Time Signature Total Protein 6.4 6.1 - 8.0 [place] g/dL [facility] Albumin 4.1 3.2 - 5.2 [place] g/dL [facility] AST 24 0 - 39 [place] unit/L [facility] ALT 44 0 - 55 [place] unit/L [facility] Alk Phos 63 40 - 130 [place] unit/L [facility] Total <0.2 (L) 0.2 - 1.3 [place] Bilirubin mg/dL [facility] Bili, Direct 0.1 0.0 - 0.3 [place] mg/dL [facility] Specimen Anatomical Collection Method Collection Time Receive d Time (Source) Location / / Volume Laterality Blood Venous Draw / 05/31/2022 10:50 05/31/2022 Unknown AM EDT 11:11 AM EDT Resulting Agency Comment Spec In Lab Zain Champion MD CHEMISTRY ORDERABLES Performing Organization Address City/[facility]/ZIP Code Phon e Number [address] Blue Tube HOLD (05/31/2022 10:50 AM EDT) athologist Signature Blue Hold Sample in [facility] LABORATORY Specimen Anatomical Collection Method Collection Time Receive d Time (Source) Location / / Volume Laterality Blood Venous Draw / 05/31/2022 10:50 05/31/2022 Unknown AM EDT 11:05 AM EDT Brittany Ramirez MD HEMATOLOGY ORDERABLES Performing Organization Address City/[facility]/ZIP Code Phon e Number [address] (ABNORMAL) Differential, Automated (05/31/2022 10:50 AM EDT) athologist Signature Neutrophils % 66.9 % [facility] Neutr Abs (ANC) 5.58 1.70 - [facility] 6.10 [facility] x10(3)/[facility] LABORATORY Lymphocytes % 22.2 % [facility] Lymphocytes Abs 1.8 0.9 - 3.2 [facility] x10(3)/[facility] LABORATORY Monocytes % 7.8 % [facility] Monocyte Abs 0.6 0.3 - 0.9 [facility] x10(3)/[facility] LABORATORY Eosinophils % 1.2 % [facility] Eosinophils Abs 0.1 0.0 - 0.4 [facility] x10(3)/[facility] LABORATORY Basophils % 0.7 % [facility] Basophils Abs 0.1 0.0 - 0.1 [facility] x10(3)/[facility] LABORATORY Immature Gran % 1.20 % [...] Gran Abs 0.10 (H) 0.00 - 0.04 x10(3)/[facility] LABORATORY Specimen Anatomical Collection Method Collection Time Receive d Time (Source) Location / / Volume Laterality Blood 05/31/2022 10:50 05/31/2022 AM EDT 11:03 AM EDT Resulting Agency Comment Spec In Lab Brittany Ramirez MD HEMATOLOGY ORDERABLES Performing Organization Address City/State/[place] [address] (ABNORMAL) Hemogram (05/31/2022 10:50 AM EDT) Analysis Performed At Patho logist Time Signature WBC 8.3 4.0 - 9.5 [facility] x10(3)/[facility] LABORATORY RBC 2.26 (L) 4.58 - [facility] 5.[facility] x10(6)/[facility] LABORATORY Hemoglobin 7.4 (L) 13.7 - [facility] 16.5 g/dL [facility] Hematocrit 22.3 (L) 40.5 - [facility] 48.5 % [facility] MCV 98.7 (H) 82.9 - [facility] 93.1 [facility] LABORATORY MCH 32.7 (H) 27.5 - [facility] X[facility] 32.1 pg [facility] MCHC 33.2 32.0 - [facility] 35.7 g/dL [facility] Platelets 283 145 - 357 [facility] x10(3)/[facility] LABORATORY RDWSD 47.0 (H) 36.0 - [facility] XIA[facility] 45.0 [facility] LABORATORY RDWCV 13.4 11.4 - [facility] 13.8 % [facility] LABORATORY MPV 10.8 7.6 - 12.9 [facility] LABORATORY nRBC % Auto 0.0 % [facility] nRBC Abs Auto 0.000 0.000 - [place] 0.000 [facility] x10(3)/[facility] LABORATORY Specimen Anatomical Collection Method Collection Time Receive d Time (Source) Location / / Volume Laterality Blood 05/31/2022 10:50 05/31/2022 AM EDT 11:03 AM EDT Resulting Agency Comment Spec In Lab Brittany Ramirez MD HEMATOLOGY ORDERABLES Performing Organization Address City/State/ZIP Code Phon e Number [address] Phosphorus (05/31/2022 10:50 AM EDT) P athologist Signature Phosphorus 3.2 2.5 - 4.5 [place] mg/dL [facility] Specimen Anatomical Collection Method Collection Time Receive d Time (Source) Location / / Volume Laterality Blood 05/31/2022 10:50 05/31/2022 AM EDT 11:03 AM EDT Resulting Agency Comment Spec In Lab Regina Hinds MD CHEMISTRY ORDERABLES Performing Organization Address City/State/ZIP Code Phon e Number [address] Magnesium (05/31/2022 10:50 AM EDT) P athologist Signature Magnesium 0.93 0.69 - 1.07 [place] mmol/L [facility] Specimen Anatomical Collection Method Collection Time Receive d Time (Source) Location / / Volume Laterality Blood 05/31/2022 10:50 05/31/2022 AM EDT 11:03 AM EDT Resulting Agency Comment Spec In Lab Regina Hinds MD CHEMISTRY ORDERABLES Performing Organization Address City/State/[place] [address] (ABNORMAL) pro-Brain Natriuretic Peptide (05/31/2022 10:50 AM EDT) P athologist Signature ProBNP 1,077 (H) <=449 [place] pg/mL [facility] Specimen Anatomical Collection Method Collection Time Receive d Time (Source) Location / / Volume Laterality Blood 05/31/2022 10:50 05/31/2022 AM EDT 11:03 AM EDT Resulting Agency Comment Spec In Lab Regina Hinds MD CHEMISTRY ORDERABLES Performing Organization Address City/[facility]/[place] [address] Troponin (05/31/2022 10:50 AM EDT) athologist Signature Troponin-T <0.01 0.00 - 0.00 [facility] ng/mL [facility] Comment: The 99th percentile for [...] additional sample may be indicated. Reference: Third [place] Definition of Myocardial Infarction. Journal of [employer] 2012;60:1581-98 Specimen Anatomical Collection Method Collection Time Receive d Time (Source) Location / / Volume Laterality Blood 05/31/2022 10:50 05/31/2022 AM EDT 11:03 AM EDT Resulting Agency Comment Spec In Lab Regina Hinds MD CHEMISTRY ORDERABLES Performing Organization Address City/[facility]/[place] [address] (ABNORMAL) Basic Metabolic Panel (non-fasting) (05/31/2022 10:50 AM EDT) athologist Signature Glucose Lvl 223 (H) 65 - 199 [facility] mg/dL [facility] Comment: Diabetes: >=200 mg/dL plus [...] Organization Address City/State/[place] [address] EKG 12 Lead (05/31/2022 10:11 AM EDT) Component Value Ref Range Test Analysis Performed Pathologis t Method Time At Signature Ventricular rate 106 BPM MUSE SYSTEM QRS Duration 122 ms MUSE SYSTEM Q-T Interval 368 ms MUSE SYSTEM QTC Calculated 488 ms MUSE SYSTEM (Bezet) Calculated R [place] -43 degrees MUSE SYSTEM Calculated T [place] 109 degrees MUSE SYSTEM INTERPRETATION Atrial fibrillation [...] erpretation Confirmed by fellow MD Mike, [place] ([id number]) on 022 8:36:21 PM Confirmed by MD [...] PROTOCOL, Starting on Fri05/31/22 at 2013, Until [place] 06/02/22 at 1702, Per Pro tocol, START [...] CONTINUOUS, Starting on Fri05/31/22 at 2015, Until [place] 06/02/22 at 1702, Begin infusion at 950 [...] (Lidoderm) 5% patch 2 patch(Linked Group 1) 4797 (Patch Applied - Provider: Raven Barbour RN [...] RN)0710 (New Bag - Provider: Raven Barbour RN)2766 (Stopped - Provider: Maranda Ribeiro RN) 0-5,000 [...] - Less than 0.1 international unit/mL: Ad frame builder 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
Routine documented in this encounter Care Teams Bearingizer Relationship Specialty Start Date End Date Bobby Das MD PCP - General 10/02/[address] [place] [address] [place] [phone] documented as of this encounter
--- OUTSIDE RECORDS SUMMARY | 2022-07-26 10:52 | XMS_ITS | Encounter Summary ---
:1940 Author Organization [facility] Address [facility] [place] [address] Care Team Providers Name Role Phone Bobby Das MD Primary Care Provider Encounter Details Date Type Department Care Team Description 05/31/2022 Office Visit Vascular Surgery at [facility]; [facility] [place] [facility] [place] Atrial fibrillation, unspecified type; [facility] SOB (shortness of breath) Drive DR Garcia [place] VASCULAR SURGERY [address] [place] [id number] [phone] Social History Tobacco Use Types Packs/Day Years [...] Afib who presents in transfer from [facility] with acute limb ischemia of the LLE.??The [...] emergently went to the OR for L CAMPUS WELLNESS COORDINATOR transverse arteriotomy and primary repair, thromboembolectomy of L SFA/PFA/CAMPUS WELLNESS COORDINATOR, reperfusion venous drainage for 250 cc, [...] ND, no palpable pulsatile masses Extremity - [place], warm, no ulceration, brisk capillary refill, left [...] Office Visit Gastroenterology Negra Collins MD [facility] ER GASTROENTEROLOGY DEPT [place] [phone] (Wo rk) 09/05/2022 Appointment Cardiology Trinity Reid MD [facility] ER CARDIOLOGY [place], [place] [address] (Wo rk) 09/05/2022 Office Visit Cardiology Trinity Reid MD [facility] CARDIOLOGY [place], [place] [address] (Wo rk) documented as of this encounter Visit Diagnoses Diagnosis Dizzy Dizziness and giddiness Atrial fibrillation, unspecified type SOB (shortness of breath) Shortness of breath documented in this encounter Care Teams Bleach Range Operator Relationship Specialty Start Date End Date Bobby Das MD PCP - General 10/02/[address] [place] [address] [place] [address] documented as of this encounter
--- OUTSIDE RECORDS SUMMARY | 2022-07-26 10:52 | XMS_ITS | Encounter Summary ---
:1940 Author Organization [facility] [place] [address] Care Team Providers Name Role Phone Bobby Das MD Primary Care Provider Encounter Details Date Type Department Care Team Description 05/24/20[address] [facility] Kourtney Jimenez, [place] [address] Social History Tobacco Use Types Packs/Day [...] [facility] DR GASTROENTEROLOGY DEPT [place], [place] [address] (Wo rk) 09/05/2022 Appointment Cardiology Trinity Reid MD [facility] ER CARDIOLOGY [place], [place] [address] (Wo rk) 09/05/2022 Office Visit Cardiology Trinity Reid MD [facility] ER CARDIOLOGY [place], [place] [address] (Wo rk) documented as of this encounter Visit Diagnoses Not on filedocumented in this encounter Care Teams Waste Reclaimer Relationship Specialty Start Date End Date Bobby Das MD PCP - General 10/02/[address] [place] [address] [place] [phone] documented as of this encounter
--- OUTSIDE RECORDS SUMMARY | 2022-07-26 10:52 | XMS_ITS | Encounter Summary ---
:1940 [place] [address] Care Team Providers Name Role Phone Bobby Das MD Primary Care Provider Reason for Referral Diagnostic Test (Routine) - Closed Specialty Diagnoses / Procedures Referred By Contact Refer red To Contact Cardiology Diagnoses Paroxysmal atrial fibrillation Nasrin Parra PA [facility] Non-Inv Card Lab Procedures Ziopatch 48 Hrs-15 Days [facility] VASCULAR SURGERY [place], [place] [address] [place] [phone] Fax: Referral ID Status Reason Start Date Expiration Date Visits V isits Requested Authorized [id number] Closed Specialty 05/21/2022 10/21/2022 1 1 Service Requested Reason for Visit Auth/Cert Specialty Diagnoses / Procedures Referred By Contact Refer red To Contact Diagnoses Limb ischemia LLE thrombus Fito Summers MD [facility] [place] [address] Referral ID Status Reason Start Date Expiration Date Visits Requ ested Visits Authorized [id number] 1 1 Encounter Details Date Type Department Care Team Description 05/21/2022 Hospital Encounter Non-Invasive Paroxysma l atrial Cardiology [place] [address] Social History Tobacco Use Types Packs/Day [...] 04/12/20 21 (FLONASE) 50 mcg/actuation Nare route Pillager, Suspension daily as needed. fluorouraciL (EFUDEX) 5 [...] [facility] DR GASTROENTEROLOGY DEPT [place], [place] [address] (Wo rk) 09/05/2022 Appointment Cardiology Trinity Reid MD [facility] CARDIOLOGY [place], [place] [address] (Wo rk) 09/05/2022 Office Visit Cardiology Trinity Reid MD [facility] CARDIOLOGY [place], [place] [address] (Wo rk) documented as of [...] fibrillation documented in this encounter Care Teams Report Checker Relationship Specialty Start Date End Date Bobby Das MD PCP - General 10/02/[address] [place] [address] [place] [phone] documented as of this encounter
--- OUTSIDE RECORDS SUMMARY | 2022-07-26 10:52 | XMS_ITS | Encounter Summary ---
:1940 [place] [address] Care Team Providers Name Role Phone Bobby Das MD Primary Care Provider Reason for Visit Reason Comments Dizziness Auth/Cert Specialty Diagnoses / Procedures Referred By Contact Refer red To Contact Diagnoses GIB (gastrointestinal bleeding) Abe [facility] [place] [address] Referral ID Status Reason Start Date Expiration Date Visits Requ ested Visits Authorized [id number] 1 1 Encounter Details Date Type Department Care Team Description 05/31/2022 - Hospital Encounter Intermediate Special Dixon Hinds MD [facility] [place] [address] GIB 06/02/2022 Care [place] [address] (gastrointestinal [facility] [place] J[place] [address] bleeding) ([facility] [place] [address] Dx) [place] [address] Social History Tobacco Use Types Packs/Day Years [...] Valle MD - 06/02/2022 12:48 PM EDT [facility] Medicine - Discharge Summary Patient Name: Koko [...] switching to a different bloodthinner with the racing secretary and handicapper outpatient. Call your doctor or seek medical [...] switchingto a different blood thinner with your racing secretary and handicapper as an outpatient Stopped Medications - Aspirin - Valsartan - Speak with your racing secretary and handicapper about the timing of restarting this Follow-up Appointments Future Appointments Date Time Provider Department Center 06/10/2022 11:00 AM Loretta Cohen MD [facility] 06/13/2022 7:30 AM Edson Lagos [place] [facility] VAS LAB [facility] 06/13/2022 8:00 AM Fito Summers MD [facility] V SURG [facility] 06/13/2022 10:00 AM Alan Reid MD [address] Your Inpatient Medical Team at [facility] Name(s) of your inpatient provider(s): Dr. John Ames For questions regarding issues relating to your hospitalization on the Hospital Medicine Service, please contact your inpatient physician through the [facility] Pressurization Mechanic [phone]. Issues after hours and on weekends will be handled by the Hospitalist staff on-call. Your Primary Care Provider Bobby Das MD [phone] Future Appointments and Orders Future Appointments and Orders Future Appointments Provider Department Dept Phone 06/10/2022 11:00 AM Loretta Cohen MD Dermatology [facility] Arrive at: Location Manager [address] [place] [phone] 06/13/2022 7:30 AM Edson Lagos [place] Vascular Lab at [facility] Arrive at: Location Manager Area [phone] 06/13/2022 8:00 AM Fito Summers MD Vascular Surgery at [facility] Arrive at: Location Manager Area 06/13/2022 10:00 AM Alan Reid MD Cardiology at [facility] Arrive at: Location Manager Area [phone] For questions regarding this document or issues relating to this hospitalization on the Medical Service, please contact your inpatient physician through the [facility] Pressurization Mechanic . Issues after hours and on weekends [...] switching to a different bloodthinner with the racing secretary and handicapper outpatient. Call your doctor or seek medical [...] switchingto a different blood thinner with your racing secretary and handicapper as an outpatient Stopped Medications - Aspirin - Valsartan - Speak with your racing secretary and handicapper about the timing of restarting this Follow-up Appointments Future Appointments Date Time Provider Department Center 06/10/2022 11:00 AM Loretta Cohen MD [facility] 06/13/2022 7:30 AM Edson [place]os [place] [facility] VAS LAB ILDA POWELL 06/13/2022 8:00 AM Fito Summers MD [facility] V SURG [facility] 06/13/2022 10:00 AM Alan Reid MD [facility] CARD 4A [facility] Your Inpatient Medical Team at [facility] Name(s) of your inpatient provider(s): Dr. John Ames For questions regarding issues relating to your hospitalization on the Hospital Medicine Service, please contact your inpatient physician through the [facility] Pressurization Mechanic [phone]. Issues after hours and on weekends will be handled by the Hospitalist staff on-call. Your Primary Care Provider Bobby Das MD [phone] documented in this encounter Medications at Time [...] 21 (FLONASE) 50 mcg/actuation Nare route [place], Suspension daily as needed. fluorouraciL (EFUDEX) 5 [...] spent >30 minutes (Day of Discharge Code 61158) involved in the final examination of the [...] were not included. Hospital Medicine Progress Note [facility] Team - Pager #[phone] Admit Date: 05/31/2022 Name: Koko Zamora : [...] Kurt Ames MD Internal Medicine, PGY-1 Medicine [facility] Team #[id number] Associated attestation - John Jolley MD - [...] of two midnights or is on the [facility] inpatient only procedure list (status C) due to: GI Bleeding documented in this encounter H&P Notes Mahendra Victor MD - 05/31/2022 4:33 PM EDT Images from the original note were not included. [facility] Medicine (#[id number]) History and Physical Patient info: Name: Koko Zamora : 1940 PCP: Bobby Das MD PCP phone number: [phone] Date of Admission: 05/31/2022 ( Hospital Day [...] Biopsy Spine 07/20/2019 Bobby Marshall MD [facility] INTERVENTIONL RAD ??? IR VERTEBROPLASTY LUMBAR MULTIPLE LEVELS 07/20/2019 IR Vertebroplasty Lumbar Multiple Levels 07/20/2019 Bobby Marshall MD [facility] INTERVENTIONL RAD ??? IR VERTEBROPLASTY THORACIC SINGLE LEVEL 10/25/2020 IR Vertebroplasty Thoracic Single Level 10/25/2020 Matt Chisholm MD [facility] INTERVENTIONL RAD ??? PRO EMBLC/THRMBC FEMORAL POPLITEAL AORTO-ILIAC ARTERY Left 05/15/2022 EMBOLECTOMY OR THROMBECTOMY, FEMOROPOPLITEAL, AORTOILIAC ARTERY BY LEG INCISION (WRVU 19.48) performed by Fito Summers MD at [facility] MAIN OR No family history on [...] 11 ??? fluticasone propionate (FLONASE) 50 mcg/actuation [place], Suspension as needed. ??? fluorouraciL (EFUDEX) 5 [...] Gas) No results found for: PHART, PO2ART, KOL2KCV, PIV7VFS Microbiology: N/A Pertinent radiology/diagnostic studies: Recent prior [...] Status: Full Arpita Valle MD, PGY-3 05/31/2022 [facility] Medicine # [id number] Attending Staff Admission Documentation [...] 05/31/2022 3:58 PM EDT Norepinephrine pulled from [facility] for soft BPs. Upon arrival to pt's [...] AM EDT Pt brought to XR by radiology clerk Brittany Ramirez MD - 05/31/2022 10:40 AM [...] have questions please contact the health manager intensive care unit that requested your imaging first. Electronically signed by: Jl Zuluaga MD, [facility] ([phone]), at 05/31/2022 2:39 PM XR Chest PA [...] have questions please contact the health manager intensive care unit that requested your imaging first. Electronically signed by: Alan Brink MD, [facility] ([phone]), at 05/31/2022 11:33 AM ED Course as [...] recommendations from Brittany Tavares MD Resident 05/31/22 0530 Associated attestation - Regina Hinds MD - [...] soft blood pressures, MD made aware. 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 Patient reported blurry/hazy [...] included. [facility] NA[place] Pena [phone] INPATIENT CARDIOLOGY CONSULT NOTE Date of Consultation: 06/01/2022 Admit Date: 05/31/2022 Place of Service: IS86/IS86-A Referring Attending: REGINA HINDS COLEMAN W FRIEDMAN, HARLEY P Responsible Double Needle Stitcher: Dr. Rizo Hospital Day 1 day Reason [...] LCX and LCx stent) who presented to [facility] on 05/31/2022 for GI [...] Biopsy Spine 07/20/2019 Bobby Marshall MD [facility] INTERVENTIONL RAD ??? IR VERTEBROPLASTY LUMBAR MULTIPLE LEVELS 07/20/2019 IR Vertebroplasty Lumbar Multiple Levels 07/20/2019 Bobby Marshall MD [facility] INTERVENTIONL RAD ??? IR VERTEBROPLASTY THORACIC SINGLE LEVEL 10/25/2020 IR Vertebroplasty Thoracic Single Level 10/25/2020 Matt Chisholm MD [facility] INTERVENTIONL RAD ??? PRO EMBLC/THRMBC FEMORAL POPLITEAL AORTO-ILIAC ARTERY Left 05/15/2022 EMBOLECTOMY OR THROMBECTOMY, FEMOROPOPLITEAL, AORTOILIAC ARTERY BY LEG INCISION (WRVU 19.48) performed by Fito Summers MD at [facility] MAIN OR ALLERGIES: Allergies Allergen Reactions [...] time ??? fluticasone propionate (FLONASE) 50 mcg/actuation [place], Suspension 1 spray by Each Nare route [...] Neurology: Without focal deficit ECG: Echocardiogram: 05/16/2022 [facility] 05/20/2022 Coronary Angiography: Dominance: Right Left Main [...] 3.5 guiding catheter and a 3.5 [address] 20 Mhz. Imaging was successful. Image [...] A premounted 2.75 x 30 mm Rudy [place] (AMPARO) was deployed with a maximum inflation [...] may require modification of this regimen. Consult [facility] Interventional Cardiology for questions. [...] Hb drop. Unknown source. has had a [facility] with stent placed and revascularization of left lower extremity within the past two weeks, recently on anticoagulation Unknown source of bleeding TECHNIQUE: Helical CT of the abdomen and pelvis was performed before and after the intravenous administration contrast utilizing GI bleed protocol. Administered 125.0 ml of OMNIPAQUE 350.00 mg/ml. Oral contrast was not administered. COMPARISON: 05/15/2022 from [facility] FINDINGS: GI Tract: Pre-contrast: No [...] have questions please contact the health manager intensive care unit that requested your imaging first. Electronically signed by: Jl Zuluaga MD, [facility] ([phone]), at 05/31/2022 2:39 PM Ziopatch 48 Hrs-15 [...] have questions please contact the health manager intensive care unit that requested your imaging first. Electronically signed by: Alan Brink MD, [facility] ([phone]), at 05/31/2022 11:33 AM LABS Recent Labs [...] on xarelto, ischemic systolic heart failure (recent [facility] 05/20/2022 with 2V disease OM1 and distal RCA, had ostial LCX and LCx stent), recent admission for acutelimb ischemia LLE, where he had left common femoral transverse arteriotomy and primary repair, thromboembolectomy of the SFA, profunda and common femoral artery with 4 compartment fasciotomies, who presented to [facility] on 05/31/2022 for GI [...] attestation for additional insight. Rossy Anaya MD [facility] Service Dog Trainer, PGY-5 Inpatient Cardiology Consults Pager #[phone] Please check Qgenda for on-call cardiology consults [...] A&Ox 4. On room air. VSS. 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 Adequate urine output, urinal at bedside, flomax [...] surrogate would be surrogate decision maker per [place] surrogate decision making law. (Only good for 180 days) Any patient receiving care in [place] must abide by [place] law. The hierarchy [...] (i) The agent with financial power of energy attorney or a conservator appointed in accordance [...] walker - rolling Home Address confirmed as: [address] [place] [phone] Social & Family Supports: All names listed below confirmed with patient as current and correct Extended Emergency Contact Information Primary Emergency Contact: Ursula Zamora Address: [address] [place] [phone] [facility] Relation: Spouse Current Care Provided by: [...] / Secondary Insurance: [facility] Secondary Insurance? (Only Medicare A&B): Yes ; Prescription Coverage: Yes Preferred Pharmacy: [id number] - [facility], [place] - [address] [facility] [address] [facility] [address] Status: Patient is a : No Primary Care Provider: Bobby Das MD [phone] Patient/Caregiver Goals of Treatment: Patient plans to [...] with transition of care planning. ASH Garcia Residential Service Technician [facility] Medicine/ Medical Specialties Pager- [phone] Plan [...] Operative Note Patient Name: Koko Rioson : [id number] MR#: [id number] Case Date: 05/31/2022 Surgeon: Surgeon(s) and Role: [...] Biopsy Spine 07/20/2019 Bobby Marshall MD [facility] INTERVENTIONL RAD ??? IR VERTEBROPLASTY LUMBAR MULTIPLE LEVELS 07/20/2019 IR Vertebroplasty Lumbar Multiple Levels 07/20/2019 Bobby Marshall MD [facility] INTERVENTIONL RAD ??? IR VERTEBROPLASTY THORACIC SINGLE LEVEL 10/25/2020 IR Vertebroplasty Thoracic Single Level 10/25/2020 Matt Chisholm MD [facility] INTERVENTIONL RAD ??? PRO EMBLC/THRMBC FEMORAL POPLITEAL AORTO-ILIAC ARTERY Left 05/15/2022 EMBOLECTOMY OR THROMBECTOMY, FEMOROPOPLITEAL, AORTOILIAC ARTERY BY LEG INCISION (WRVU 19.48) performed by Fito Summers MD at [facility] MAIN OR SOCIAL HX: Social History [...] sounds, tympanic to percussion RECTAL: performed with manager electronic present, no overt masses, fissures, external hemorrhoids, [...] have questions please contact the health manager intensive care unit that requested your imaging first. Electronically signed by: Alna Brink MD, [facility] ([phone]), at 05/31/2022 11:[address] Abdomen & [...] 08/08/2022 Office Visit Gastroenterology Negra Collins MD [facility] GASTROENTEROLOGY DEPT [place], [place] [address] (Wo bob) 09/05/2022 Appointment Cardiology Trinity Reid MD [facility] CARDIOLOGY [place], [place] [address] (Wo bob) 09/05/2022 Office Visit Cardiology Trinity Reid MD [facility] ER DR [place]ARD[place]OLOGY [place], [place] [address] (Wo rk) documented as [...] LABORATORY Neutr Abs (ANC) 4.44 1.70 - [facility] 6.10 [facility] x10(3)/[facility] LABORATORY Lymphocytes % 25.2 % [facility] LABORATORY Lymphocytes Abs 1.8 0.9 - 3.2 [facility] x10(3)/[facility] LABORATORY Monocytes % 10.0 % [facility] LABORATORY Monocyte Abs 0.7 0.3 - 0.9 [facility] x10(3)/[facility] LABORATORY Eosinophils % 2.1 % [facility] LABORATORY Eosinophils Abs 0.2 0.0 - 0.4 [facility] x10(3)/[facility] LABORATORY Basophils % 0.7 % [facility] LABORATORY Basophils Abs 0.0 0.0 - 0.1 [facility] x10(3)/[facility] LABORATORY Immature Gran % 0.70 % [...] 0.00 - 0.04 x10(3)/[facility] LABORATORY Specimen Anatomical Collection Method Collection Time Receive d Time (Source) Location / / Volume Laterality Blood 06/02/2022 8:20 AM 8:25 EDT AM EDT Resulting Agency Comment Spec In Lab Kurt Ames MD HEMATOLOGY ORDERABLES Performing Organization Address City/State/ZIP Code Phon e Number [place] [phone] [facility] [address]ORY [address] (ABNORMAL) Hemogram (06/02/2022 8:20 AM EDT) Analysis Performed At Patho logist Time Signature WBC 7.2 4.0 - 9.5 [place] x10(3)/[facility] LABORATORY RBC 2.74 (L) 4.58 - [facility] 5.54 [facility] x10(6)/[facility] LABORATORY Hemoglobin 8.7 (L) 13.7 - [facility] 16.[facility] g/dL [facility] LABORATORY Hematocrit 25.7 (L) 40.5 - [facility] 48.5 % [facility] LABORATORY MCV 93.8 (H) 82.9 - [facility] 93.1 [facility] LABORATORY MCH 31.8 27.5 - [place] 32.1 pg [facility] LABORATORY MCHC 33.9 32.0 - [place] 35.7 g/dL [facility] LABORATORY Platelets 260 145 - 357 [facility] x10(3)/[facility] LABORATORY RDWSD 51.0 (H) 36.0 - [place] 45.0 [facility] LABORATORY RDWCV 14.9 (H) 11.4 - [facility] XIAO 13.8 % [facility] LABORATORY MPV 10.0 7.6 - 12.9 [facility] LABORATORY nRBC % Auto 0.0 % [facility] LABORATORY nRBC Abs Auto 0.000 0.000 - [place] 0.000 [facility] x10(3)/[facility] LABORATORY Specimen Anatomical Collection Method Collection Time Receive d Time (Source) Location / / Volume Laterality Blood 06/02/2022 8:20 AM 8:25 EDT AM EDT Resulting Agency Comment Spec In Lab Kurt Ames MD HEMATOLOGY ORDERABLES Performing Organization Address City/[facility]/[place] [address] Heparin (unfractionated) Level (06/02/2022 6:30 AM EDT) athologist Signature Heparin UFH 0.39 IU/mL [facility] LABORATORY Comment: Heparin (anti-Xa) levels should be [...] Organization Address City/State/[place] [address] Heparin (unfractionated) Level (06/02/2022 12:30 AM EDT) athologist Signature Heparin UFH 0.81 IU/mL [facility] LABORATORY Comment: Heparin (anti-Xa) levels should be [...] MD HEMATOLOGY ORDERABLES Performing Organization Address City/[facility]/ZIP Code Phon e Number [address] Magnesium (06/02/2022 12:30 AM EDT) athologist Signature Magnesium 0.83 0.69 - 1.07 [facility] mmol/L [facility] LABORATORY Specimen Anatomical Collection Method Collection Time Receive d Time (Source) Location / / Volume Laterality Blood 06/02/2022 12:30 06/02/2022 AM EDT 12:40 AM EDT Resulting Agency Comment Spec In Lab Mahendra Victor MD CHEMISTRY ORDERABLES Performing Organization Address City/[facility] Phon e Number [address] (ABNORMAL) Basic Metabolic Panel (non-fasting) (06/02/2022 12:30 AM EDT) athologist Signature Glucose Lvl 151 65 - 199 [facility] mg/dL [facility] LABORATORY Comment: Diabetes: >=200 mg/dL plus symp toms BUN 12 10 - 20 mg/dL [facility] LABORATORY Creatinine 0.71 (L) 0.80 - 1.50 mg/dL [facility] LABORATORY Sodium 142 135 - 145 mmol/L [facility] LABORATORY Potassium 3.8 3.5 - 5.0 mmol/L [facility] [...] Calcium 8.1 (L) 8.5 - 10.5 mg/dL [facility] LABORATORY Estimated GFR 93 >=60 [...] Organization Address City/State/ZIP Code Phon e Number [place] [phone] HOSPITAL LABORATORY Drive (ABNORMAL) Differential, Automated (06/01/2022 7:29 PM EDT) P athologist Signature Neutrophils % 68.8 % [facility] LABORATORY Neutr Abs (ANC) 5.34 1.70 - [facility] 6.10 [facility] x10(3)/[facility] LABORATORY Lymphocytes % 19.6 % [facility] LABORATORY Lymphocytes Abs 1.5 0.9 - 3.2 [facility] x10(3)/[facility] LABORATORY Monocytes % 8.1 % [facility] LABORATORY Monocyte Abs 0.6 0.3 - 0.9 [facility] x10(3)/[facility] LABORATORY Eosinophils % 1.8 % [facility] LABORATORY Eosinophils Abs 0.1 0.0 - 0.4 [facility] x10(3)/[facility] LABORATORY Basophils % 0.8 % [facility] LABORATORY Basophils Abs 0.1 0.0 - 0.1 [facility] x10(3)/[facility] LABORATORY Immature Gran % 0.90 % [facility] [...] 0.00 - 0.04 x10(3)/[facility] LABORATORY Specimen Anatomical Collection Method Collection Time Receive d Time (Source) Location / / Volume Laterality Blood 06/01/2022 7:29 PM 7:29 EDT PM EDT Resulting Agency Comment Spec In Lab Kurt Ames MD HEMATOLOGY ORDERABLES Performing Organization Address City/State/[place] [address] (ABNORMAL) Hemogram (06/01/2022 7:29 PM EDT) Analysis Performed At Patho logist Time Signature WBC 7.8 4.0 - 9.5 [facility] x10(3)/[facility] LABORATORY RBC 2.65 (L) 4.58 - [place] 5.54 [facility] x10(6)/[facility] LABORATORY Hemoglobin 8.3 (L) 13.7 - [facility] 16.5 g/dL [facility] LABORATORY Hematocrit 24.8 (L) 40.5 - [place] 48.5 % [facility] LABORATORY MCV 93.6 (H) 82.9 - [facility] XIAO 93.1 [facility] LABORATORY MCH 31.3 27.5 - [place] 32.1 pg [facility] LABORATORY MCHC 33.5 32.0 - [facility] XIAO 35.7 g/dL [facility] LABORATORY Platelets 263 145 - 357 [facility] x10(3)/[facility] LABORATORY RDWSD 52.8 (H) 36.0 - [facility] [facility] 45.0 [facility] LABORATORY RDWCV 15.4 (H) 11.4 - [facility] XIAO 13.8 % [facility] LABORATORY MPV 10.4 7.6 - 12.9 [facility] LAB[facility] nRBC % Auto 0.0 % [facility] LABORATORY nRBC Abs Auto 0.000 0.000 - [place] 0.000 [facility] x10(3)/[facility] LABORATORY Specimen Anatomical Collection Method Collection Time Receive d Time (Source) Location / / Volume Laterality Blood 06/01/2022 7:29 PM 2 7:29 EDT PM EDT Resulting Agency Comment Spec In Lab Kurt Ames MD HEMATOLOGY ORDERABLES Performing Organization Address City/[facility]/ZIP Code Phon e Number [address] Heparin (unfractionated) Level (06/01/2022 7:29 PM EDT) P athologist Signature Heparin UFH 0.81 IU/mL [facility] LABORATORY Comment: Heparin (anti-Xa) levels should be [...] Organization Address City/State/[place] [address] (ABNORMAL) Heparin (unfractionated) Level (06/01/2022 11:32 AM EDT) Patholo gist Method Time Signature Heparin UFH 1.05 IU/mL [facility] Level (Critical) [facility] LABORATORY Comment: [...] Organization Address City/State/[place] [address] (ABNORMAL) Differential, Automated (06/01/2022 5:56 AM EDT) [facility] Method Time Signature Neutrophils % 62.7 % [facility] LABORATORY Neutr Abs (ANC) 6.11 (H) 1.70 - [facility] 6.10 [facility] x10(3)/[facility] LABORATORY Lymphocytes % 23.5 % [facility] LABORATORY Lymphocytes Abs 2.3 0.9 - 3.2 [facility] x10(3)/[facility] LABORATORY Monocytes % 10.0 % [facility] LABORATORY Monocyte Abs 1.0 (H) 0.3 - 0.9 [facility] x10(3)/[facility] LABORATORY Eosinophils % 2.2 % [facility] LABORATORY Eosinophils Abs 0.2 0.0 - 0.4 [facility] x10(3)/[facility] LABORATORY Basophils % 0.9 % [facility] LABORATORY Basophils Abs 0.1 0.0 - 0.1 [facility] x10(3)/[facility] LABORATORY Immature Gran % 0.70 [...] 0.00 - 0.04 x10(3)/[facility] LABORATORY Specimen Anatomical Collection Method Collection Time Receive d Time (Source) Location / / Volume Laterality Blood 06/01/2022 5:56 AM 6:05 EDT AM EDT Resulting Agency Comment Spec In Lab Arpita Valle MD HEMATOLOGY ORDERABLES Performing Organization Address City/State/ZIP Code Phon e Number [place] [id number] LAB[address]ATORY Drive (ABNORMAL) Hemogram (06/01/2022 5:56 AM EDT) Analysis Performed At Patho logist Time Signature WBC 9.7 (H) 4.0 - 9.5 [facility] x10(3)/[facility] LABORATORY RBC 2.83 (L) 4.58 - [facility] XIAO 5.54 [facility] x10(6)/[facility] LABORATORY Hemoglobin 9.0 (L) 13.7 - [facility] g/dL [facility] LABORATORY Hematocrit 26.7 (L) 40.5 - [facility] XIAO 48.5 % [facility] LABORATORY MCV 94.3 (H) 82.9 - [facility] 93.1 fL [facility] LABORATORY MCH 31.8 27.5 - [place] 32.1 pg [facility] LABORATORY MCHC 33.7 32.0 - [facility] XIAO 35.7 g/dL [facility] LABORATORY Platelets 250 145 - 357 [facility] x10(3)/[facility] LABORATORY RDWSD 54.3 (H) 36.0 - [place] 45.0 [facility] LABORATORY RDWCV 15.9 (H) 11.4 - [place] 13.8 % [facility] LABORATORY MPV 10.5 7.6 - 12.9 [facility] X[facility] LABORATORY nRBC % Auto 0.0 % [facility] LABORATORY nRBC Abs Auto 0.000 0.000 - [place] 0.000 [facility] x10(3)/[facility] LABORATORY Specimen Anatomical Collection Method Collection Time Receive d Time (Source) Location / / Volume Laterality Blood 06/01/2022 5:56 AM 2 6:05 EDT AM EDT Resulting Agency Comment Spec In Lab Arpita Valle MD HEMATOLOGY ORDERABLES Performing Organization Address City/State/[place] [address] Heparin (unfractionated) Level (06/01/2022 4:30 AM EDT) athologist Signature Heparin UFH 0.68 IU/mL [facility] LABORATORY Comment: Heparin (anti-Xa) levels should be [...] Organization Address City/State/[place] [address] (ABNORMAL) Urinalysis with reflex Culture (06/01/2022 4:00 AM EDT) Patholo gist Method Time Signature Glucose UA 500 Negative [facility] (Critical) mg/dL [facility] LABORATORY Comment: Urinalysis result NOT critical without a combination of Glucose greater than or equal to 500 mg/dL AND Ketones greate r than or equal to 80 mg/dL Protein UA Negative Negative mg/dL [facility] LABORATORY Bilirubin UA Negative Negative mg/dL [facility] LABOR[facility]ORY Leukocytes UA Negative Negative [facility] LABORATORY Appearance UA Clear Clear [facility] LABORATORY Spec [place] UA >=1.030 (A) 1.005 - 1.030 [facility] LABORATORY Color UA Yellow Yellow [facility] LABORATORY Culture Reflexed No [facility] LABORATORY Specimen Anatomical Collection Method Collection Time Receive d Time (Source) Location / / Volume Laterality Clean Catch 06/01/2022 4:00 AM 4:26 Urine EDT AM EDT Resulting Agency Comment Spec In Lab Mahendra Victor MD URINE ORDERABLES Performing Organization Address City/State/ZIP Code Phon e Number [address] Magnesium (06/01/2022 1:00 AM EDT) P athologist Signature Magnesium 0.93 0.69 - 1.07 [facility] mmol/L [facility] LABORATORY Specimen Anatomical Collection Method Collection Time Receive d Time (Source) Location / / Volume Laterality Blood 06/01/2022 1:00 AM 2 1:37 EDT AM EDT Resulting Agency Comment Spec In Lab Mahendra Victor MD CHEMISTRY ORDERABLES Performing Organization Address City/State/ZIP Code Phon e Number [facility] [place] [place] [address] (ABNORMAL) Basic Metabolic Panel (non-fasting) (06/01/2022 1:00 AM EDT) P athologist Signature Glucose Lvl 148 65 - 199 [facility] mg/dL [facility] LABORATORY Comment: Diabetes: >=200 mg/dL plus symp toms BUN 23 (H) 10 - 20 mg/dL [facility] LABORATORY Creatinine 0.78 (L) 0.80 - 1.50 mg/dL [facility] LABORATORY Sodium 141 135 - 145 mmol/L [facility] LABORATORY Potassium 4.0 3.5 - 5.0 mmol/L [facility] [...] LABORATORY Calcium 8.6 8.5 - 10.5 mg/dL [facility] LABORATORY Estimated GFR 91 >=60 [...] Organization Address City/State/[place] [address] (ABNORMAL) Differential, Automated (06/01/2022 12:00 AM EDT) athologist Signature Neutrophils % 64.6 % [facility] LABORATORY Neutr Abs (ANC) 5.60 1.70 - [facility] 6.10 [facility] x10(3)/[facility] LABORATORY Lymphocytes % 22.4 % [facility] LABORATORY Lymphocytes Abs 1.9 0.9 - 3.2 [facility] x10(3)/[facility] LABORATORY Monocytes % 9.5 % [facility] LABORATORY Monocyte Abs 0.8 0.3 - 0.9 [facility] x10(3)[facility] LABORATORY Eosinophils % 2.1 % [facility] LABORATORY Eosinophils Abs 0.2 0.0 - 0.4 [facility] x10(3)[facility] LABORATORY Basophils % 0.6 % [facility] LABORATORY Basophils Abs 0.0 0.0 - 0.1 [facility] x10(3)/[facility] LABORATORY Immature Gran % 0.80 % [facility] [...] 0.00 - 0.04 x10(3)/[facility] LABORATORY Specimen (Source) Anatomical Collection Method Collection Time Re ceived Time Location / / Volume Laterality Blood 06/01/2022 06/01/2022 12:1 0 AM EDT Resulting Agency Comment Spec In Lab Arpita Valle MD HEMATOLOGY ORDERABLES Performing Organization Address City/State/[place] [address] (ABNORMAL) Hemogram (06/01/2022 12:00 AM EDT) Analysis Performed At Patho logist Time Signature WBC 8.7 4.0 - 9.5 [facility] x10(3[facility] LABORATORY RBC 2.77 (L) 4.58 - [place] 5.54 [facility] x10(6)/[facility] LABORATORY Hemoglobin 8.6 (L) 13.7 - [place] 16.5 g/dL [facility] LABORATORY Hematocrit 25.7 (L) 40.5 - [facility] XIAO 48.5 % [facility] LABORATORY MCV 92.8 82.9 - [facility] 93.1 [facility] LABORATORY MCH 31.0 27.5 - [place] 32.1 pg [facility] LABORATORY MCHC 33.5 32.0 - [place] 35.7 g/dL [facility] LABORATORY Platelets 260 145 - 357 [facility] x10(3)/[facility] LABORATORY RDWSD 51.9 (H) 36.0 - [facility] X[facility] 45.0 [facility] LABORATORY RDWCV 15.5 (H) 11.4 - [place] 13.8 % [facility] LABORATORY MPV 10.4 7.6 - 12.9 [facility] nRBC % Auto 0.0 % [facility] LABORATORY nRBC Abs Auto 0.000 0.000 - [place] 0.000 [facility] x10(3)/[facility] LABORATORY Specimen (Source) Anatomical Collection Method Collection Time Re ceived Time Location / / Volume Laterality Blood 06/01/2022 06/01/2022 12:1 0 AM EDT Resulting Agency Comment Spec In Lab Arpita Valle MD HEMATOLOGY ORDERABLES Performing Organization Address City/State/ZIP Code [place] [address] (ABNORMAL) Differential, Automated (05/31/2022 9:17 PM EDT) P athologist Signature Neutrophils % 59.6 % [facility] LABORATORY Neutr Abs (ANC) 3.98 1.70 - [facility] 6.10 [facility] x10(3)/[facility] LABORATORY Lymphocytes % 27.5 % [facility] LABORATORY Lymphocytes Abs 1.8 0.9 - 3.2 [facility] x10(3)/[facility] LABORATORY Monocytes % 9.1 % [facility] LABORATORY Monocyte Abs 0.6 0.3 - 0.9 [facility] x10(3)/[facility] LABORATORY Eosinophils % 2.4 % [facility] LABORATORY Eosinophils Abs 0.2 0.0 - 0.4 [facility] x10(3)/[facility] LABORATORY Basophils % 0.7 % [facility] LABORATORY Basophils Abs 0.0 0.0 - 0.1 [facility] x10(3)/[facility] LABORATORY Immature Gran % 0.70 % [...] 0.00 - 0.04 x10(3)/[facility] LABORATORY Specimen Anatomical Collection Method Collection Time Receive d Time (Source) Location / / Volume Laterality Blood 05/31/2022 9:17 PM 9:25 EDT PM EDT Resulting Agency Comment Spec In Lab Arpita Valle MD HEMATOLOGY ORDERABLES Performing Organization Address City/State/ZIP Code Phon e Number [place] [phone] Drive (ABNORMAL) Hemogram (05/31/2022 9:17 PM EDT) Analysis Performed At Patho logist Time Signature WBC 6.7 4.0 - 9.5 [facility] x10(3)/[facility] LABORATORY RBC 2.74 (L) 4.58 - [place] 5.54 [facility] x10(6)/[facility] LABORATORY Hemoglobin 8.5 (L) 13.7 - [facility] 16.5 g/dL [facility] LABORATORY Hematocrit 25.7 (L) 40.5 - [facility] 48.5 % [facility] LABORATORY MCV 93.8 (H) 82.9 - [facility]1 [facility] LABORATORY MCH 31.0 27.5 - [facility] 32.1 pg [facility] LABORATORY MCHC 33.1 32.0 - [facility] 35.7 g/dL [facility] LABORATORY Platelets 233 145 - 357 [facility] x10(3)/[facility] LABORATORY RDWSD 51.9 (H) 36.0 - [facility] 45.0 [facility] LABORATORY RDWCV 15.3 (H) 11.4 - [facility] 13.8 % [facility] LABORATORY MPV 10.3 7.6 - 12.9 [facility] LABORATORY nRBC % Auto 0.0 % [facility] LABORATORY nRBC Abs Auto 0.000 0.000 - [facility] 0.000 [facility] x10(3)/[facility] LABORATORY Specimen Anatomical Collection Method Collection Time Receive d Time (Source) Location / / Volume Laterality Blood 05/31/2022 9:17 PM 9:25 EDT PM EDT Resulting Agency Comment Spec In Lab Arpita Valle MD HEMATOLOGY ORDERABLES Performing Organization Address City/State/[place] [address] Transfuse RBC (05/31/2022 7:36 PM EDT) Regina Hinds MD NURSING TREATMENT ORDERABLES - BLOOD ADMIN Transfuse RBC (05/31/2022 7:36 PM EDT) Regina iHnds MD NURSING TREATMENT ORDERABLES - BLOOD ADMIN UPPER GI ENDOSCOPY (05/31/2022 3:37 PM EDT) Component Value Ref Test Analysis Performed At Patholo gist Range Method Time Signature UPPER GI [facility] PROVATION ENDOSCOPY Endoscopy Procedure Date: 05/31/2022 3:37 PM ? Patient Name: Koko Zamora ? Date of : 1940 ? Age: 81 ? Order #: [id number] ? Instrument Name: [id number] ? Procedure: ? Upper GI endoscopy Indications: [...] Procedure Code(s): ? --- Professional --- ? 21849, Esophagogastroduode noscopy, ? flexible, transoral; with control [...] stomach ? and duodenum CPT copyright 2020 [employer]. All rights reserved. The codes documented in this report are preliminary and upon veneer sawyer review may be revised to meet current [...] have questions please contact the health manager intensive care unit that requested your imaging first. ? Electronically signed by: Jl walter MD, [facility] ([phone]), at 05/31/2022 2:39 PM Narrative 05/31/2022 2:39 [...] contrast was not administered. COMPARISON: 05/15/2022 from [facility] FINDINGS: GI Tract: Pre-contrast: No [...] enlarged lymph nodes. Vasculature: Patent common iliac, gas cutter al iliac, and common femoral arteries bilaterally. [...] contrast was not administered. COMPARISON: 05/15/2022 from [facility] FINDINGS: GI Tract: Pre-contrast: No [...] enlarged lymph nodes. Vasculature: Patent common iliac, gas cutter al iliac, and common femoral arteries bilaterally. [...] have questions please contact the health manager intensive care unit that requested your imaging first. Electronically signed by: Jl walter MD, [facility] ([phone]), at 05/31/2022 2:39 PM Regina Hinds MD IMG CT ORDERABLES Type and Screen Validity (05/31/2022 1:43 PM EDT) [facility] Method Time Signature T&S only valid [facility] LABORATORY Comment: This Type and Screen result is only valid at the [facility] Specimen Anatomical Collection Method Collection Time Receive d Time (Source) Location / / Volume Laterality Blood 05/31/2022 1:43 PM 2 1:57 EDT PM EDT Resulting Agency Comment Spec In Lab Regina Hinds MD BLOOD BANK ORDERABLES Performing Organization Address City/[facility]/[place] [address] ABORH Recheck Status (05/31/2022 1:43 PM EDT) [facility] Method Time Signature ABORH Type Completed [facility] LABORATORY Specimen Anatomical Collection Method Collection Time Receive d Time (Source) Location / / Volume Laterality Blood 05/31/2022 1:43 PM 2 1:57 EDT PM EDT Resulting Agency Comment Spec In Lab Regina Hinds MD BLOOD BANK ORDERABLES Performing Organization Address City/[facility]/[place] [address] Antibody screen (05/31/2022 1:43 PM EDT) [facility] Method [place] Signature Ab Screen Negative [facility] LABORATORY Expires at 06/03/2022 [facility] [id number] on: [facility] LABORATORY Specimen Anatomical Collection Method Collection Time Receive d Time (Source) Location / / Volume Laterality Blood 05/31/2022 1:43 PM 2 1:57 EDT PM EDT Resulting Agency Comment Spec In Lab Regina Hinds MD BLOOD BANK ORDERABLES Performing Organization Address City/[facility]/[place] [address] ABO/Rh Typing (05/31/2022 1:43 PM EDT) P athologist Signature ABORh Type O Pos [facility] LABORATORY Specimen Anatomical Collection Method Collection Time Receive d Time (Source) Location / / Volume Laterality Blood 05/31/2022 1:43 PM 2 1:57 EDT PM EDT Resulting Agency Comment Spec In Lab Regina Hinds MD BLOOD BANK ORDERABLES Performing Organization Address City/[facility] [place] [address] Prepare RBC (05/31/2022 1:35 PM EDT) P athologist Signature Dispensed? Yes [facility] LABORATORY Specimen Anatomical Collection Method Collection Time Receive d Time (Source) Location / / Volume Laterality Blood 05/31/2022 1:35 PM 2 1:30 EDT PM EDT Regina Hinds MD BLOOD BANK ORDERABLES Performing Organization Address City/[facility]/[place] [address] Prepare RBC (05/31/2022 1:25 PM EDT) P athologist Signature Dispensed? Yes [facility] LABORATORY Specimen Anatomical Collection Method Collection Time Receive d Time (Source) Location / / Volume Laterality Blood 05/31/2022 1:25 PM 2 1:23 EDT PM EDT Regina Hinds MD BLOOD BANK ORDERABLES Performing Organization Address City/[facility] [place] [address] (ABNORMAL) Differential, Automated (05/31/2022 12:44 PM EDT) P athologist Signature Neutrophils % 62.0 % [facility] LABORATORY Neutr Abs (ANC) 4.71 1.70 - [facility] 6.10 [facility] x10(3)/[facility] LABORATORY Lymphocytes % 24.1 % [facility] LABORATORY Lymphocytes Abs 1.8 0.9 - 3.2 [facility] x10(3)/[facility] LABORATORY Monocytes % 10.8 % [facility] LABORATORY Monocyte Abs 0.8 0.3 - 0.9 [facility] x10(3)/[facility] LABORATORY Eosinophils % 1.6 % [facility] LABORATORY Eosinophils Abs 0.1 0.0 - 0.4 [facility] x10(3)/[facility] LABORATORY Basophils % 0.7 % [facility] LABORATORY Basophils Abs 0.0 0.0 - 0.1 [facility] x10(3)/[facility] LABORATORY Immature Gran % 0.80 % [place] [...] Gran Abs 0.06 (H) 0.00 - 0.04 x10(3)/[facility] LABORATORY Specimen Anatomical Collection Method Collection Time Receive d Time (Source) Location / / Volume Laterality Blood 05/31/2022 12:44 05/31/2022 PM EDT 12:57 PM EDT Resulting Agency Comment Spec In Lab Brittany Ramirez MD HEMATOLOGY ORDERABLES Performing Organization Address City/State/ZIP Code Phon e Number [place] [id number] LAB[address]ORY Drive (ABNORMAL) Hemogram (05/31/2022 12:44 PM EDT) Analysis Performed At Patho logist Time Signature WBC 7.6 4.0 - 9.5 [facility] x10(3)/[facility] LABORATORY RBC 2.11 (L) 4.58 - [facility] 5.54 [facility] x10(6)/[facility] LABORATORY Hemoglobin 6.9 (L) 13.7 - [facility] g/dL [facility] LABORATORY Hematocrit 20.8 (L) 40.5 - [facility] 48.5 % [facility] LABORATORY MCV 98.6 (H) 82.9 - [facility] 93.1 [facility] LABORATORY MCH 32.7 (H) 27.5 - [facility] 32.1 pg [facility] LABORATORY MCHC 33.2 32.0 - [facility] 35.7 g/dL [facility] Platelets 255 145 - 357 [facility] x10(3)/[facility] LABORATORY RDWSD 47.7 (H) 36.0 - [facility] 45.0 [facility] RDWCV 13.4 11.4 - [facility] 13.8 % [facility] LABORATORY MPV 10.7 7.6 - 12.9 [facility] LABORATORY nRBC % Auto 0.0 % [facility] nRBC Abs Auto 0.000 0.000 - [facility] 0.000 [facility] x10(3)/[facility] LABORATORY Specimen Anatomical Collection Method Collection Time Receive d Time (Source) Location / / Volume Laterality Blood 05/31/2022 12:44 05/31/2022 PM EDT 12:57 PM EDT Resulting Agency Comment Spec In Lab Brittany Ramirez MD HEMATOLOGY ORDERABLES Performing Organization Address City/State/[place] [address] (ABNORMAL) BLOOD GAS 2 VENOUS (05/31/2022 11:24 AM EDT) P athologist Signature pH [place] 7.38 7.32 - [facility] 7.42 [facility] LABORATORY pCO2 [place] 40 (L) 41 - 51 [facility] LABORATORY pO2 [place] 18 (L) 25 - 40 [facility] LABORATORY HCO3 [place] 23.3 mmol/L [facility] LABORATORY BE [place] -1.8 mmol/L [facility] LABORATORY Hgb Blood Gas 7.0 (L) 13.7 - [facility] 16.5 g/dL [facility] LABORATORY O2HB [place] 24.3 % [facility] LABORATORY COHB [place] 1.4 % [facility] Comment: Nonsmokers: 0.5-1.5% COHB Smokers: Variable, but [...] [facility] LABORATORY BGas Source Venous [facility] LABORATORY Specimen Anatomical Collection Method Collection Time Receive d Time (Source) Location / / Volume Laterality Blood 05/31/2022 11:24 05/31/2022 AM EDT 11:24 AM EDT Regina Hinds MD CHEMISTRY ORDERABLES Performing Organization Address City/State/[place] [address] TSH [place] (05/31/2022 11:20 AM EDT) P athologist Signature TSH 1.67 0.27 - 4.20 [facility] mcIU/mL [facility] LABORATORY Comment: Reference Interval (mcIU/mL): Females: ??First Trimester: 0.23-3.88 ??Second Trimester: 0.22-3.90 ??Third Trimester: 0.44-4.66 Specimen Anatomical Collection Method Collection Time Receive d Time (Source) Location / / Volume Laterality Blood 05/31/2022 11:20 05/31/2022 AM EDT 11:28 AM EDT Resulting Agency Comment Spec In Lab Regina Hinds MD CHEMISTRY ORDERABLES Performing Organization Address City/State/[place] [address] XR Chest PA & [...] have questions please contact the health manager intensive care unit that requested your imaging first. ? Electronically signed by: Alan strong MD, [facility] ([phone]), at 05/31/2022 11:33 AM Narrative 05/31/2022 11:33 [...] have questions please contact the health manager intensive care unit that requested your imaging first. Regina Hinds MD IMG DX ORDERABLES Lipase (05/31/2022 10:50 AM EDT) athologist Signature Lipase 41 0 - 60 [facility]/L [facility] LABORATORY Specimen Anatomical Collection Method Collection Time Receive d Time (Source) Location / / Volume Laterality Blood Venous Draw / 05/31/2022 10:50 05/31/2022 Unknown AM EDT 11:11 AM EDT Resulting Agency Comment Spec In Lab Zain Champion MD CHEMISTRY ORDERABLES Performing Organization Address City/State/[place] [address] (ABNORMAL) Hepatic Function Panel (05/31/2022 10:50 AM EDT) Analysis Performed At Patho logist Time Signature Total Protein 6.4 6.1 - 8.0 [facility] g/dL [facility] LABORATORY Albumin 4.1 3.2 - 5.2 [facility] g/dL [facility] LABORATORY AST 24 0 - 39 [facility] LABORATORY ALT 44 0 - 55 [facility]/L [facility] LABORATORY Alk Phos 63 40 - 130 [facility]/L [facility] LABORATORY Total <0.2 (L) 0.2 - 1.3 [facility] Bilirubin mg/dL [facility] LABORATORY Bili, Direct 0.1 0.0 - 0.3 [facility] LABORATORY Specimen Anatomical Collection Method Collection Time Receive d Time (Source) Location / / Volume Laterality Blood Venous Draw / 05/31/2022 10:50 05/31/2022 Unknown AM EDT 11:11 AM EDT Resulting Agency Comment Spec In Lab Zain Champion MD CHEMISTRY ORDERABLES Performing Organization Address City/[facility]/ZIP Code Phon e Number [address] Blue Tube HOLD (05/31/2022 10:50 AM EDT) P athologist Signature Blue Hold Sample in [facility] lab. [facility] LABORATORY Specimen Anatomical Collection Method Collection Time Receive d Time (Source) Location / / Volume Laterality Blood Venous Draw / 05/31/2022 10:50 05/31/2022 Unknown AM EDT 11:05 AM EDT Brittany Ramirez MD HEMATOLOGY ORDERABLES Performing Organization Address City/[facility]/ZIP Code Phon e Number [address] (ABNORMAL) Differential, Automated (05/31/2022 10:50 AM EDT) P athologist Signature Neutrophils % 66.9 % [facility] LABORATORY Neutr Abs (ANC) 5.58 1.70 - [facility] 6.10 [facility] x10(3)/[facility] LABORATORY Lymphocytes % 22.2 % [facility] LABORATORY Lymphocytes Abs 1.8 0.9 - 3.2 [facility] x10(3)/[facility] LABORATORY Monocytes % 7.8 % [facility] LABORATORY Monocyte Abs 0.6 0.3 - 0.9 [facility] x10(3)/[facility] LABORATORY Eosinophils % 1.2 % [facility] LABORATORY Eosinophils Abs 0.1 0.0 - 0.4 [facility] x10(3)/[facility] LABORATORY Basophils % 0.7 % [facility] LABORATORY Basophils Abs 0.1 0.0 - 0.1 [facility] x10(3)/[facility] LABORATORY Immature Gran % 1.20 % [place] [...] Gran Abs 0.10 (H) 0.00 - 0.04 x10(3)/[facility] LABORATORY Specimen Anatomical Collection Method Collection Time Receive d Time (Source) Location / / Volume Laterality Blood 05/31/2022 10:50 05/31/2022 AM EDT 11:03 AM EDT Resulting Agency Comment Spec In Lab Brittany Ramirez MD HEMATOLOGY ORDERABLES Performing Organization Address City/State/ZIP Code Phon e Number [place] [phone] (ABNORMAL) Hemogram (05/31/2022 10:50 AM EDT) Analysis Performed At Patho logist Time Signature WBC 8.3 4.0 - 9.5 [facility] x10(3)/[facility] LABORATORY RBC 2.26 (L) 4.58 - [facility] 5.54 [facility] x10(6)/[facility] LABORATORY Hemoglobin 7.4 (L) 13.7 - [facility]/dL [facility] LABORATORY Hematocrit 22.3 (L) 40.5 - [facility] 48.5 % [facility] LABORATORY MCV 98.7 (H) 82.9 - [facility] 93.1 fL [facility] LABORATORY MCH 32.7 (H) 27.5 - [facility] 32.1 pg [facility] LABORATORY MCHC 33.2 32.0 - [facility] 35.7 g/dL [facility] LABORATORY Platelets 283 145 - 357 [facility] x10(3)/[facility] LABORATORY RDWSD 47.0 (H) 36.0 - [facility] 45.0 [facility] LABORATORY RDWCV 13.4 11.4 - [facility] 13.8 % [facility] LABORATORY MPV 10.8 7.6 - 12.9 [facility] LABORATORY nRBC % Auto 0.0 % [facility] LABORATORY nRBC Abs Auto 0.000 0.000 - [facility] XIAO 0.000 [facility] x10(3)/[facility] LABORATORY Specimen Anatomical Collection Method Collection Time Receive d Time (Source) Location / / Volume Laterality Blood 05/31/2022 10:50 05/31/2022 AM EDT 11:03 AM EDT Resulting Agency Comment Spec In Lab Brittany Ramirez MD HEMATOLOGY ORDERABLES Performing Organization Address City/State/ZIP Code Phon e Number [address] Phosphorus (05/31/2022 10:50 AM EDT) P athologist Signature Phosphorus 3.2 2.5 - 4.5 [facility] XIAO mg/dL [facility] LABORATORY Specimen Anatomical Collection Method Collection Time Receive d Time (Source) Location / / Volume Laterality Blood 05/31/2022 10:50 05/31/2022 AM EDT 11:03 AM EDT Resulting Agency Comment Spec In Lab Regina Hinds MD CHEMISTRY ORDERABLES Performing Organization Address City/State/ZIP Code Phon e Number [address] Magnesium (05/31/2022 10:50 AM EDT) P athologist Signature Magnesium 0.93 0.69 - 1.07 [facility]O mmol/L [facility] LABORATORY Specimen Anatomical Collection Method Collection Time Receive d Time (Source) Location / / Volume Laterality Blood 05/31/2022 10:50 05/31/2022 AM EDT 11:03 AM EDT Resulting Agency Comment Spec In Lab Regina Hinds MD CHEMISTRY ORDERABLES Performing Organization Address City/State/ZIP Code Phon e Number [address] (ABNORMAL) pro-Brain Natriuretic Peptide (05/31/2022 10:50 AM EDT) athologist Signature ProBNP 1,077 (H) <=449 [facility] Otto Clave pg/mL [facility] LABORATORY Specimen Anatomical Collection Method Collection Time Receive d Time (Source) Location / / Volume Laterality Blood 05/31/2022 10:50 05/31/2022 AM EDT 11:03 AM EDT Resulting Agency Comment Spec In Lab Regina Hinds MD CHEMISTRY ORDERABLES Performing Organization Address City/State/[place] [address] Troponin (05/31/2022 10:50 AM EDT) athologist Signature Troponin-T <0.01 0.00 - 0.00 [facility] XIAO ng/mL [facility] LABORATORY Comment: The 99th percentile for Troponin T is le ss than 0.01 ng/mL, any detectable cTnT concentration using this assay should be considered elevated. According to the third universal definit ion of myocardial infarction the following criteria with a clinical prese ntation consistent with acute myocardial ischemia meets the diagnosis for a myocardial infarction ([place]). Detection of a rise and/or fall of [...] additional sample may be indicated. Reference: Third Ubly Definition of Myocardial Infarction. Journal of the [place] [employer] 2012;60:1581-98 Specimen Anatomical Collection Method Collection Time Receive d Time (Source) Location / / Volume Laterality Blood 05/31/2022 10:50 05/31/2022 AM EDT 11:03 AM EDT Resulting Agency Comment Spec In Lab Regina Hinds MD CHEMISTRY ORDERABLES Performing Organization Address City/State/ZIP Code Phon e Number [place] [phone]ORY [address] (ABNORMAL) Basic Metabolic Panel (non-fasting) (05/31/2022 10:50 AM EDT) athologist Signature Glucose Lvl 223 (H) 65 - 199 [facility] mg/dL [facility] LABORATORY Comment: Diabetes: >=200 mg/dL plus symp toms BUN 39 (H) 10 - 20 mg/dL [facility] LABORATORY Creatinine 0.91 0.80 - 1.50 mg/dL [facility] LABORATORY Sodium 140 135 - 145 mmol/L [facility] LABORATORY Potassium 4.1 3.5 - 5.0 mmol/L [facility] [...] LABORATORY Calcium 9.1 8.5 - 10.5 mg/dL [facility] LABORATORY Estimated GFR 86 >=60 [...] Organization Address City/State/[place] [address] EKG 12 Lead (05/31/2022 10:11 AM EDT) Component Value Ref Range Test Analysis Performed Pathologis t Method Time At Signature Ventricular rate 106 BPM MUSE SYSTEM QRS Duration 122 ms MUSE SYSTEM Q-T Interval 368 ms MUSE SYSTEM QTC Calculated 488 ms MUSE SYSTEM (Bezet) Calculated R Helton -43 degrees MUSE SYSTEM Calculated T Helton 109 degrees MUSE SYSTEM INTERPRETATION Atrial fibrillation with rapid ventricular response MUSE SYSTEM Left axis deviation Minimal voltage criteria for LVH, may be normal variant ( [place] product ) Cannot rule out Anterior infarct , age undetermined Abnormal ECG When compared with ECG of 20-MAY-2022 19:04, No significant change was found I personally reviewed the tracing and edited the fellows int erpretation Confirmed by fellow MD Mike, [place] ([id number]) on 022 8:36:21 PM Confirmed by MD [...] (Lidoderm) 5% patch 2 patch(Linked Group 1) 0904 (Patch Applied - Provider: Raven Barbour RN [...] - Less than 0.1 international unit/mL: Ad charge hand 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 to med 0-4,000 Units, Intravenous, BOLUS [facility], Starting on Fri05/31/22 at 2014, [...]
Routine documented in this encounter Care Teams Acid Crane Operator Relationship Specialty Start Date End Date Bobby Das MD PCP - General 10/02/[address] [place] [address] [place] [phone] documented as of this encounter
--- OUTSIDE RECORDS SUMMARY | 2022-07-26 10:52 | XMS_ITS | Encounter Summary ---
:1940 Author Organization [place] [address] Care Team Providers Name Role Phone Bobby Das MD Primary Care Provider Encounter Details Date Type Department Care Team Description 05/28/2022 Telephone Vascular Surgery at [facility] Dominique Bolivar, RN [facility] [place] [address] Social History Tobacco Use Types Packs/Day Years Used Date Current Some Day Smoker Cigarettes 0.5 50 Smokeless Tobacco: Never Used Alcohol Use Standard Drinks/Week Comments Yes 44 (1 standard drink = 0.6 oz pure alcoh ol) Sex Assigned at Date Recorded Not on file documented as of this encounter Miscellaneous Notes Telephone Encounter - Dominique Bolivar RN - 05/28/2022 1:20 PM EDT This process description writer returned phone call due to 's concern with the patients low blood pressure. 05/15/2022: Left common femoral transverse arteriotomy and primary repair; Thromboembolectomy of theSFA, profunda, and common femoral artery; Reperfusion venous drainage of 250cc; Left lower extremity4 compartment fasciotomies. (Colum) 05/20/2022: Coronary angiography, L heart catheterization, coronary [...] cardiac history and symptoms of lightheadedness, this process description writer recommended the patient be evaluated. Discussed going to local ED ([facility]) where staff could also phone vascular and/or cardiac at [facility] for planning. The patient agreed to do this after he has lunch. documented in this encounter Plan of Treatment Upcoming Encounters Date Type Specialty Care Team Description 08/08/2022 Office Visit Gastroenterology Negra Collins MD [facility] DR GASTROENTEROLOGY DEPT [place], [place] [address] (Wo rk) 09/05/2022 Appointment Cardiology Trinity Reid MD [facility] CARDIOLOGY [place], [place] [address] (Wo rk) 09/05/2022 Office Visit Cardiology Trinity Reid MD [facility] CARDIOLOGY [place], [place] [address] (Wo rk) documented as of this encounter Visit Diagnoses Not on filedocumented in this encounter Care Teams Custody Assistant Relationship Specialty Start Date End Date Bobby Das MD PCP - General 10/02/[address] [place] [address] [place] [phone] documented as of this encounter
--- OUTSIDE RECORDS SUMMARY | 2022-07-26 10:52 | XMS_ITS | Encounter Summary ---
:1940 Author Organization [facility] [place] [address] Care Team Providers Name Role Phone Bobby Das MD Primary Care Provider Reason for Visit Auth/Cert Specialty Diagnoses / Procedures Referred By Contact Refer red To Contact Diagnoses GIB (gastrointestinal bleeding) Abe [facility] [place] [address] Referral ID Status Reason Start Date Expiration Date Visits Requ ested Visits Authorized [id number] 1 1 Encounter Details Date Type Department Care Team Description 05/31/2022 Anesthesia Event Gastroenterology at [facility] Elmer Johnson MD [facility] [place] [address] [facility] Yogi Machado CRNA [facility] [place] [place] [address] [place] [phone] Anesthesia Record Procedure Summary Procedure Name [...] fossa), DION Carpenter Alysia O, RN right; cohp-jhy-wymbws catheter system; 20 gauge; no longer indicated, [...] Procedure Summary Date: 05/31/22 Room / Location: [facility] ENDO 3 / [facility] ENDOSCOPY Anesthesia Start: 1603 Anesthesia Stop: 165 Procedures: EGD, UPPER GI ENDOSCOPY (N/A Trunk) EGD, W CONTROL OF BLEEDING, ANY METHOD Diagnosis: (melena) Surgeons: Giovani Ponce MD Responsible Provider: Elmer Johnson MD Anesthesia Type: MAC ASA Status: 3 All Anesthesia Providers: Anesthesiologist: Elmer Johnson MD MIXER OPERATOR HELPER HOT METAL: Yogi Dawkins CRNA Vitals Value Taken Time BP 95/62 05/31/22 1720 Temp Pulse Resp 18 05/31/22 1720 SpO2 99 % 05/31/22 1720 Pain Level 0 05/31/22 1720 Patient Location: PACU/[facility] Level of Consciousness: Awake and [...] IR Biopsy Spine 07/20/2019 Bobby Marshall MD [facility] INTERVENTIONL RAD ??? IR VERTEBROPLASTY LUMBAR MULTIPLE LEVELS 07/20/2019 IR Vertebroplasty Lumbar Multiple Levels 07/20/2019 Bobby Marshall MD [facility] INTERVENTIONL RAD ??? IR VERTEBROPLASTY THORACIC SINGLE LEVEL 10/25/2020 IR Vertebroplasty Thoracic Single Level 10/25/2020 Matt Chisholm MD [facility] INTERVENTIONL RAD ??? PRO EMBLC/THRMBC FEMORAL POPLITEAL AORTO-ILIAC ARTERY Left 05/15/2022 EMBOLECTOMY OR THROMBECTOMY, FEMOROPOPLITEAL, AORTOILIAC ARTERY BY LEG INCISION (WRVU 19.48) performed by Fito Summers MD at [facility] MAIN OR ??? PRO UPPER GI ENDOSCOPY, CTRL BLEED 05/31/2022 EGD, W CONTROL OF BLEEDING, ANY METHOD performed by Giovani Ponce MD at [facility] ENDOSCOPY ??? PRO UPPER GI ENDOSCOPY, DIAGNOSTIC N/A 05/31/2022 EGD, UPPER GI ENDOSCOPY performed by Giovani Ponce MD at [facility] ENDOSCOPY Social History Tobacco Use [...] risks discussed with patient. Plan discussed with MIXER OPERATOR HELPER HOT METAL. Anesthesia Screening documented in this encounter Plan of Treatment Upcoming Encounters Date Type Specialty Care Team Description 08/08/2022 Office Visit Gastroenterology Negra Collins MD [facility] GASTROENTEROLOGY DEPT [place], [place] [address] (Wo rk) 09/05/2022 Appointment Cardiology Trinity Reid MD [facility] CARDIOLOGY [place], [place] [address] (Wo rk) 09/05/2022 Office Visit Cardiology Trinity Reid MD [facility] CARDIOLOGY [place], [place] [address] (Wo rk) documented as of [...] mg documented in this encounter Care Teams V Belt Builder Relationship Specialty Start Date End Date Bobby Das MD PCP - General 10/02/[address] [place] [address] [place] [phone] documented as of this encounter
--- OUTSIDE RECORDS SUMMARY | 2022-07-26 10:53 | XMS_ITS | Encounter Summary ---
:1940 [place] [address] Care Team Providers Name Role Phone Bobby Das MD Primary Care Provider Reason for Visit Auth/Cert Specialty Diagnoses / Procedures Referred By Contact Refer red To Contact Diagnoses Limb ischemia LLE thrombus Fito Summers MD [facility] [place] [address] Referral ID Status Reason Start Date Expiration Date Visits Requ ested Visits Authorized [id number] 1 1 Encounter Details Date Type Department Care Team Description 05/15/2022 Anesthesia Event Main Operating Room Cari Briggs MD [facility] [place] [address] [facility] Duong Aguillon CRNA [facility] [place] [place] [address] [place] [address] Anesthesia Record Procedure Summary Procedure Name [...] Amb ros, Andrea L, DION fossa), left; gisr-jsj-qoowss catheter system; 18 gauge; OSH; site care per policy/procedure, site symptomatic, removed per policy/procedure, catheter/device intact; 05/16/22; 1117 PIV 05/15/22; 1204; median 05/15/22 1204 by 05/16/22 0738 by cubital vein (antecubital Marcia Dimas RN Gon zalez, Adriana, fossa), right; RN cjxl-cfr-eftytw catheter system; 18 gauge; OSH; 05/16/22; 0738 [...] Procedure Summary Date: 05/15/22 Room / Location: [facility] OR [address] [place] [address] MAIN OR Anesthesia Start: 1320 Anesthesia Stop: 1633 Procedure: EMBOLECTOMY OR THROMBECTOMY, FEMOROPOPLITEAL, AORTOILIAC ARTERY BY LEG INCISION ([facility] 19.[facility]) (Left ) Diagnosis: (Acute Limb Ischemia) Surgeons: Fito Summers MD Responsible Provider: Cari eVntura MD Anesthesia Type: general ASA Status: 3 - Emergent All Anesthesia Providers: Anesthesiologist: Cari Ventura MD CHEMICAL ECONOMIST: Torres Aguilar CRNA Vitals Value Taken Time BP 108/69 05/15/22 1715 Temp 36.3 ??C (97.3 ??F) 05/15/22 1633 Pulse 110 05/15/22 1719 Resp 16 05/15/22 1719 SpO2 89 % 05/15/22 1719 Pain Level Vitals shown include unvalidated device data. Patient Location: PACU/[facility] Level of Consciousness: Awake and Alert [...] IR Biopsy Spine 07/20/2019 Bobby Marshall MD [facility] INTERVENTIONL RAD ??? IR VERTEBROPLASTY LUMBAR MULTIPLE LEVELS 07/20/2019 IR Vertebroplasty Lumbar Multiple Levels 07/20/2019 Bobby Marshall MD [facility] INTERVENTIONL RAD ??? IR VERTEBROPLASTY THORACIC SINGLE LEVEL 10/25/2020 IR Vertebroplasty Thoracic Single Level 10/25/2020 Matt Chisholm MD [facility] INTERVENTIONL RAD Social History Tobacco Use ??? 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 Plan discussed with CHEMICAL ECONOMIST. Anesthesia Screening documented in this encounter Plan of Treatment Upcoming Encounters Date Type Specialty Care Team Description 08/08/2022 Office Visit Gastroenterology Negra Collins MD [facility] GASTROENTEROLOGY DEPT [place], [place] [address] (Wo rk) 09/05/2022 Appointment Cardiology Trinity Reid MD [facility] CARDIOLOGY [place], [place] [address] (Wo rk) 09/05/2022 Office Visit Cardiology Trinity Reid MD [facility] CARDIOLOGY [place], [place] [address] (Wo rk) documented as of [...] Routine documented in this encounter Care Teams Transportation Officer Relationship Specialty Start Date End Date Bobby Das MD PCP - General 10/02/[address] [place] [address] [place] [phone] documented as of this encounter
--- OUTSIDE RECORDS SUMMARY | 2022-07-26 10:53 | XMS_ITS | Encounter Summary ---
:1940 [place] [address] Care Team Providers Name Role Phone Bobby Das MD Primary Care Provider Reason for Visit Reason Comments Left Leg Pain Auth/Cert Specialty Diagnoses / Procedures Referred By Contact Refer red To Contact Diagnoses Limb ischemia LLE thrombus Fito Summers MD [facility] [place] [address] Referral ID Status Reason Start Date Expiration Date Visits Requ ested Visits Authorized [id number] 1 1 Encounter Details Date Type Department Care Team Description 05/20/2022 Surgery Pants Presser Automatic Abundio Mcguire , CARDIAC CATHETERIZATION [facility] [place] [address] CARDIOLOGY [phone] [place], [place] [address] (Wo rk) Social History Tobacco [...] onset Afib who presents in transfer from [facility] with acute limb ischemia of the LLE. [...] emergently went to the OR for L RELATIONSHIP CONSULTANT transverse arteriotomy and primary repair, thromboembolectomy of L SFA/PFA/RELATIONSHIP CONSULTANT, reperfusion venous drainage for 250 cc, and [...] Condition: Good Discharge to: Home with [address] [address] Future Appointments and Orders Future Appointments and Orders Future Appointments Provider Department Dept Phone 05/23/2022 10:30 AM Loretta Cohen MD Dermatology at [facility] Arrive at: Job Analyst [address] [place] [address] 06/07/2022 1:30 PM Gail Rae APRN Vascular Surgery at [facility] Arrive at: Job Analyst [address] [phone] 06/13/2022 7:30 AM Edson Lagos [place] Vascular Lab at [facility] Arrive at: Job Analyst Area 06/13/2022 8:00 AM Fito Summers MD Vascular Surgery at [facility] Arrive at: Job Analyst Area 3V [phone] 06/13/2022 10:00 AM Alan Reid MD Cardiology at [facility] Arrive at: Job Analyst Area [phone] Future Orders Complete By Expires Ziopatch 48 Hrs-15 Days [[id number] CPT(R)] 05/21/2022 11/20/2022 Process Instructions: Scheduling Instructions: Comments: Questions: Does the patient have a pacemaker? If yes provide HI/LO settings: Apply for 7 or 14 days?: 7 Where will study be performed?: [facility] Clinics JOSSELYN, legs, multiple levels [VAS8 Custom] 06/21/2022 (Approximate) 12/21/2022 Process Instructions: There is no in-house vascular paving and surfacing labourer available on weeknights (5pm-8am), weekends, or holidays. IF THIS IS A REQUEST FOR AN EMERGENT STUDY DURING THOSE HOURS, please have the senior provider responsible for the patient page the Vascular Surgery Fellow/Senior Resident drone pilot to discuss options. Scheduling Instructions: Questions: Indication for study/signs & symptoms: ALI s/p L fem cutdown with thromboembolectomy Question to be answered: Perfusion to feet? Please check toe pressure Preferred location?: [facility] Referral to Cardiology [REF12 [...] Koko Zamora for admission to Home Health. [address] [place] [phone] (home) Date of : 1940 Inpatient DOCUMENTATION FOR VNA SERVICES (INCLUDING THOSE PATIENTS WITH MEDICARE COVERAGE REQUIRING HOME VNA SERVICES AND/OR HOSPICE SERVICES) PATIENT'S LOCATION: Koko Zamora [address] [place] [phone] (home) Cell: No relevant phone numbers on file. Cob Sawyer's Name: Koko In discussion with the attending physician, it is certified that this patient is under their care and that they, or a Nurse Practitioner,Clinical Nurse specialist or Physician Industrial Custodian who is working directly with them, had [...] for managing ADL's. HOME HEALTH CARE AGENCY: [facility]. [address] [place] [address] Start of care: Within 24 to 48 [...] obtained from this patient'sPCP: Bobby Das MD [address] [place] [address] [place] [address] All VNA agencies which cover the [...] For any problems or questions please call [phone] For issues on weeknights after 5pm and weekends please call [phone] and ask for the Vascular Fellow drone pilot. JOSEE Santiago Vascular Surgery 05/21/2022 documented in [...] For any problems or questions please call [phone] For issues on weeknights after 5pm and weekends please call [phone] and ask for the Vascular Fellow drone pilot. documented in this encounter Medications at Time [...] 04/12/20 21 (FLONASE) 50 mcg/actuation Nare route [place], Suspension daily as needed. fluorouraciL (EFUDEX) 5 [...] onset Afib who presents in transfer from [facility] with acute limb ischemia of the LLE. [...] status, full code. JOSEE Santiago 05/21/2022 Pager: [phone] Brannon Isaacs, PT - 05/21/2022 10:35 AM [...] plan as stated. Time IN / OUT: 3710-9925 Total Minutes, Physical Therapy: 25 Billing Code: 2 BOSTON Isaacs DPT Pager: [phone] Physical Therapy Inpatient Rehabilitation Department [place] Jean [...] Pain and Spine Center at [facility] Weight 79.8 kg (175 lb [...] and plan of care per Dr. Mcnamara (journeyman operator assistant). Please refer to her note above for [...] to Hosp-Admission (Current) from 05/15/2022 in 4 [facility] Office Visit from 04/17/2021 in Pain and Spine Center at [facility] Weight 79.8 kg (175 lb [...] findings andplan of care per Dr. Mcnamara (journeyman operator assistant). Please refer to her note above for [...] repair in 2000 (not at [facility]) with no CAD at that [...] the first documented HR at [facility] was 125 bpm (presented to [...] onset Afib who presents in transfer from [facility] with acute limb ischemia of the LLE. [...] management following Dottie Hill APRN 05/20/2022 Pager: [phone] Laney Atkins RN - 05/20/2022 1:14 AM EDT Pt Koko transferred to room from [facility]. A&Ox4, oriented to room and call boo. Masimo and telemetry placed. In agreement with assessment as documented this evening by Nuris ASHLEY. No complaints at this time. Pt aware of NPO status and plan for cardiac cath in AM. Urinal provided. Resting comfortably in bed. Nuris Lester RN - 05/20/2022 1:09 AM EDT Pt. Transferred to [facility]. RN accompanied patient to floor and handed off to [facility] RN Dottie Hill APRN - 05/19/2022 10:02 AM EDT Vascular Surgery Progress Note Koko Zamora is a 81 y.o. male with w new onset Afib who presents in transfer from [facility] with acute limb ischemia of the LLE. ?? The patient had sudden pain starting at 630 05/15/22, he presented [facility] where he was placed on heparin. [...] management following Dottie Hill APRN 05/19/2022 Pager: [phone] Emily Sauceda RN - 05/19/2022 6:28 AM EDT OUTCOME EVALUATION NOTE: OUTCOME SUMMARY: Patient AOx4, VSS on RA. Afib on tele. HR controlled w/ PRN metop, given x2. Denies CP, SOB, n/v. See flowsheets for NVC. Dressings to LLE CDI, prevena WV to groin intact. Voiding to urinal. LBM PROJECT ASSOCIATE, patient stating he will maybe try the [...] adequately without difficulty to bedside urinal. LBM PROJECT ASSOCIATE. Up to chair this AM with nursing staff. Worked with PT, tolerated well. Diet changed to regular at 1800.Plan is for cardiac cath on Friday. PLAN MOVING FORWARD: Bleeding precautions Pain management neurovascular checks PT/OT lab animal technician INDIVIDUALIZED FALL PREVENTION INTERVENTIONS: Patient-specific fall [...] onset Afib who presents in transfer from [facility] with acute limb ischemia of the LLE. [...] mL Intravenous BID ??? PHENobarbitaL 0.12 mg/kg/dose ([place]) Oral BID ??? thiamine 100 mg Oral [...] management following Dottie Hill APRN 05/18/2022 Pager: [phone] Brannon Isaacs, PT - 05/18/2022 10:00 AM [...] IR Biopsy Spine 07/20/2019 Bobby Marshall MD [facility] INTERVENTIONL RAD ??? IR VERTEBROPLASTY LUMBAR MULTIPLE LEVELS 07/20/2019 IR Vertebroplasty Lumbar Multiple Levels 07/20/2019 Bobby Marshall MD [facility] INTERVENTIONL RAD ??? IR VERTEBROPLASTY THORACIC SINGLE LEVEL 10/25/2020 IR Vertebroplasty Thoracic Single Level 10/25/2020 Matt Chisholm MD [facility] INTERVENTIONL RAD ??? PRO EMBLC/THRMBC FEMORAL POPLITEAL AORTO-ILIAC ARTERY Left 05/15/2022 EMBOLECTOMY OR THROMBECTOMY, FEMOROPOPLITEAL, AORTOILIAC ARTERY BY LEG INCISION (WRVU 19.48) performed by Fito Summers MD at [facility] MAIN OR Social History: Pt [...] in this evaluation. Time IN / OUT: 5652-9596 Total Minutes, Physical Therapy: 30 Billing Code: Basilio Isaacs, PT Pager: [phone] Physical Therapy Inpatient Rehabilitation Department Emily Sauceda RN - 05/18/2022 4:34 AM EDT OUTCOME EVALUATION NOTE: OUTCOME SUMMARY: Patient AOx4, VSS on 2LNC. Afib on tele. HR above 120, MD aware, PRN IV metop given x1, HR returned to 90's-low 100's. Denies CP, SOB, n/v. See flowsheets for NVC. Dressings to LLE CDI, prevena WV to groin intact. Voiding to urinal. LBM PROJECT ASSOCIATE. Heparin gtt therapeutic. Pain controlled. Patient sleeping [...] adequately without difficulty to bedside urinal. LBM PROJECT ASSOCIATE. Patient not OOB this shift. Currently NPO awaitingprocedure in mineral ore processing labourer. PLAN MOVING FORWARD: Bleeding precautions Pain management neurovascular checks PT/OT NPO for mineral ore processing labourer INDIVIDUALIZED FALL PREVENTION INTERVENTIONS: Patient-specific fall [...] Emergency Department as a transfer from [facility] with left lower extremity limb ischemia. He went to [facility] and was startedon heparin and [...] he will will be going to the mineral ore processing labourer for evaluation. Will defer PT eval at present but will see as ordered post cardiac catheritizaton. Social Hx:Pt lives with his Ursula in [place], [place] in a 2 level home in [...] WBAT LLE LISBET HERMAN PT Pager # [phone] In-Pt Rehab Medicine Dottie Hill APRN - 05/17/2022 7:42 AM EDT Vascular Surgery Progress Note Koko Zamora is a 81 y.o. male with w new onset Afib who presents in transfer from [facility] with acute limb ischemia of the LLE. [...] mL Intravenous BID ??? PHENobarbitaL 0.24 mg/kg/dose ([place]) Oral BID Followed by ??? [START ON 05/18/2022] PHENobarbitaL 0.12 mg/kg/dose ([place]) Oral BID ??? thiamine 100 mg Oral [...] management following Dottie Hill APRN 05/17/2022 Pager: [phone] Sary Dos Santos, RN - 05/17/2022 12:16 [...] onset Afib who presents in transfer from [facility] with acute limb ischemia of the LLE. [...] mL Intravenous BID ??? PHENobarbitaL 0.48 mg/kg/dose ([place]) Oral BID Followed by ??? [START ON 05/17/2022] PHENobarbitaL 0.24 mg/kg/dose ([place]) Oral BID Followed by ??? [START ON 05/18/2022] PHENobarbitaL 0.12 mg/kg/dose ([place]) Oral BID ??? thiamine 100 mg Oral [...] management following Edward Rodríguez MD 05/16/2022 Pager: [phone] Sary Dos Santos RN - 05/16/2022 12:52 [...] met 2129 Hand off to DION Ramirez muskogee documented in this encounter H&P Notes Kerry [...] onset Afib who presents in transfer from [facility] with acute limb ischemia of the LLE. [...] IR Biopsy Spine 07/20/2019 Bobby Marshall MD [facility] INTERVENTIONL RAD ??? IR VERTEBROPLASTY LUMBAR MULTIPLE LEVELS 07/20/2019 IR Vertebroplasty Lumbar Multiple Levels 07/20/2019 Bobby Marshall MD [facility] INTERVENTIONL RAD ??? IR VERTEBROPLASTY THORACIC SINGLE LEVEL 10/25/2020 IR Vertebroplasty Thoracic Single Level 10/25/2020 Matt Chisholm MD [facility] INTERVENTIONL RAD Social Hx: Social [...] Refill ??? fluticasone propionate (FLONASE) 50 mcg/actuation [place], Suspension as needed. ??? fluorouraciL (EFUDEX) 5 [...] and consented. Tim Chicas MD 05/15/2022 Pager: [phone] documented in this encounter ED Notes Lc Harris PA - 05/15/2022 1:20 PM EDT ED Provider Note HPI: Koko Zamora is a 81 y.o. male with history of atrial fibrillation not on anticoagulation, and GI bleeding who presents to the Emergency Department as a transfer from [facility] with left lower extremity limb ischemia. Patient says that the symptoms started roughly 630 this morning when he developed severe pain in his left lower extremity. He went to [facility] and was started on heparin [...] lower extremity earlier today and went to [facility] where it was determined that he had ischemia of the left lower extremity. Vascular surgery [facility] was contacted and he was transferred [...] pt. Arrival. Pt. Arrived at [facility] by EMS at 1150, vascular team at bedside documented in this encounter Miscellaneous Notes Consult Note - Radha Christy RN - 05/21/2022 12:43 PM EDT Kkoo Zamora was seen today by Cardiac Rehabilitation for: PCI, HFrEF Activity evaluation - Per PT Educational packet regarding CAD, cardiac risk factors, and managing angina given to the patient. Heart diagram reviewed. Koko is on the Vascular Surgery service for LLE limb ischemia, s/p femoral cutdown w/thromboembolectomy. Participation in an outpatient cardiac rehabilitation program at [facility] was discussed. Patient agrees to a referral to this program. Timing will depend on his recovery from Vascular surgery. He is going home w/VNA PT. I gave him the brochure for the program at [facility] for future reference. Care Management Discharge - [...] information for follow-up Home Health & Hospice, [place] [address] [place] [address] Transportation: family or friend will provide Functional [...] Secondary Insurance: [facility] Prescription Coverage: Yes This plan was formulated with input from patient and team. All are in agreement with plan. IP RS has communicated with [place] - for initial IMM. Shawn López RN (Jonas) RN/CM - Cellphone: [phone] Pager: [phone] Covering Service RN/CM Plan of Care - [...] catheterization, transferred in hospital bed accompanied by Pants Presser Automatic RN, remains on telemetry monitoring. Heparin gtt [...] Secondary Insurance: [facility] Last Physical Therapy Recommendation: home with home health, home with supervision with None Last Occupational Therapy Recommendation: with Plan for discharge is: Home w/ Services Outpatient Agency/Support Group Needs: None Home Health Services: Registered Nurse, Physical Therapy, Occupational Therapy Agency Referrals: I have met with the patient to: ?? discuss discharge planning needs. ?? provide the [facility], Office of Care Management letter from the Auto Washer pertaining to rehab referrals. ?? provide a letter describing our affiliations within the [facility] and educate about their right to choose where referrals are sent. ?? provide a list of Home Health Agencies / Durable Medical Equipment vendors which serve their preferred geographic area. ?? provided patient with [facility] Star Quality Rating handout. They have requested referrals to: [facility]. [address] [place] [address] Note routed to a Commercial Ocean Clammer who will communicate referrals to facilities and provide any required information. Transportation: family or friend will provide Barriers to discharge: None Plan going forward: Patient is going for a cardiac cath today and plan will come from there. Patientwas recently seen by PT and they recommend VNA at time of discharge. [place] was routed and pendedat this time. Care Management will continue to follow and assist with discharge planning and coordination of care as indicated. Anticipated Date of Discharge: 05/21/2022 Nataly RICHMOND RN Phone: [phone] Pager: [phone] Plan of Care - Laney Atkins RN [...] from the original note were not included. [facility] [place] [address] [address] INPATIENT CARDIOLOGY CONSULT NOTE Date of Consultation: 05/17/2022 Admit Date: 05/15/2022 Hospital Day 2 days Reason for Consult: New afib Active Problems: Active Hospital Problems Diagnosis Limb ischemia Resolved Hospital Problems No resolved problems to display. HPI: Koko Zamora is a 81 y.o. male with a PMHx significant for MVP (s/p MV repair 2000), tobacco use, HLD, who presented to [facility] from OSH on 05/15 with acute limb ischemia of LLE and was found to be in atrial fibrillation. Patient had sudden onset LLE pain on 05/15 and presented to [facility], where he was started on heparin and transferred to [facility]. Upon arrival to [facility], patient was in atrial fib [...] IR Biopsy Spine 07/20/2019 Bobby Marshall MD [facility] INTERVENTIONL RAD IR VERTEBROPLASTY LUMBAR MULTIPLE LEVELS 07/20/2019 IR Vertebroplasty Lumbar Multiple Levels 07/20/2019 Bobby Marshall MD [facility] INTERVENTIONL RAD IR VERTEBROPLASTY THORACIC SINGLE LEVEL 10/25/2020 IR Vertebroplasty Thoracic Single Level 10/25/2020 Matt Chisholm MD [facility] INTERVENTIONL RAD PRO EMBLC/THRMBC FEMORAL POPLITEAL AORTO-ILIAC ARTERY Left 05/15/2022 EMBOLECTOMY OR THROMBECTOMY, FEMOROPOPLITEAL, AORTOILIAC ARTERY BY LEG INCISION (WRVU 19.48) performed by Fito Summers MD at [facility] MAIN OR Allergies Allergen Reactions Aspirin Other (See Comments) GI bleed Out-Patient Medications: Medications Prior to Admission Medication Sig Dispense Refill Last Dose fluorouraciL (EFUDEX) 5 % Cream daily. CRESTOR 40 mg Tablet Take 40 mg by mouth daily. fluticasone propionate (FLONASE) 50 mcg/actuation [place], Suspension as needed. ascorbic acid, vitamin C, [...] 5 mL Intravenous BID PHENobarbitaL 0.24 mg/kg/dose ([place]) Oral BID Followed by [START ON 05/18/2022] PHENobarbitaL 0.12 mg/kg/dose ([place]) Oral BID thiamine 100 mg Oral Daily folic acid 1,000 mcg Oral Daily multivitamin with minerals 1 tablet Oral Daily heparin (porcine) infusion 1,200 Units/hr (05/17/22 7500) Family History: No family history on file. [...] ED to Hosp-Admission (Current) from 05/15/[address] [place] [address] Office Visit from 04/17/2021 in Pain and Spine Center at [facility] Weight 79.8 kg (175 lb [...] continue to follow Anne-Marie Larson MD Pager [phone] Clinic: [phone] 05/17/22 6:22 PM Initial Assessments - Ifrah [...] Any patient receiving care at [facility] must abide by [place] law. The hierarchy [...] (i) The agent with financial power of city attorney or a conservator appointed in accordance [...] raised toilet seat Home Address confirmed as: [address] [place] [phone] Social & Family Supports: All names listed below confirmed with patient as Incorrect. Will notify toni to correct. Wifes address is same as and phone is [phone]. Extended Emergency Contact Information Primary Emergency Contact: Ursula Zamora Address: [address] [place] [address] [address] [place] [address] [facility] Relation: Spouse Current Care [...] Secondary Insurance: [facility] Prescription Coverage: Yes Preferred Pharmacy: [id number] - [place], [place] - [address] [facility] [address] [place] [address] [id number] - [place], [place] - [address] [facility] [address] [facility] [address] Crane Status: Patient is a : unable to assess Primary Care Provider: Bobby Das MD [phone] Patient/Caregiver Goals of Treatment: to walk again Potential Needs for Transition of Care: none noted per 05/16 IDR Transportation: family will provide Transportation Anticipated: family or friend will provide Concerns to be Addressed: no discharge needs identified Assessment: Patient is admitted to vascular surg service for left lower extremity limb ischemia Plan: Per PT OT recommendations . Has used [facility] in the past. A member of the Care Management team will continue to monitor progress, follow for continuity of care and assist with transition of care planning. Ifrah Bell RN BSN [employer] [facility] of Care Management Pager [phone] Brief Op Note - Erin Garza MD - 05/15/2022 5:04 PM EDT Brief Operative Note Patient Name: Koko Zamora : [id number] MR#: [id number] Case Date: 05/15/2022 Surgeon: Surgeon(s) and Role: [...] - 05/15/2022 2:08 PM EDT [facility] Operative Note Patient Name: Koko Zamora : [id number] MR#: [id number] Case Date: 05/15/2022 Surgeon: Surgeon(s) and Role: [...] MD [facility] DR GASTROENTEROLOGY DEPT [place], [place] [address] (Wo rk) 09/05/2022 Appointment Cardiology Trinity Reid MD [facility] CARDIOLOGY [place] [address] (Wo rk) 09/05/2022 Office Visit Cardiology Trinity Reid MD [facility] CARDIOLOGY [place] [address] (Wo rk) Scheduled Referrals Name [...] Component Value Ref Test Analysis Performed At [facility] Range Method Time Signature VB Text Department: Vascular Surgery Lab VASCUBASE Report Patient: [id number] (KOKO ZAMORA) CPT: 27121 Referring Physician: FITO SUMMERS ?? Phone: Indications: s/p L RELATIONSHIP CONSULTANT endart. Diabetes mellitus: no Findings: Right ?Pressure [...] Address City/State/[place] [address] Differential, Automated (05/21/2022 6:15 AM EDT) P athologist Signature Neutrophils % 58.8 % [facility] LABORATORY Neutr Abs (ANC) 3.97 1.70 - [facility] 6.10 [facility] x10(3)[facility] LABORATORY Lymphocytes % 25.2 % [facility] LABORATORY Lymphocytes Abs 1.7 0.9 - 3.2 [facility] x10(3)[facility] LABORATORY Monocytes % 12.9 % [facility] LABORATORY Monocyte Abs 0.9 0.3 - 0.9 [facility] x10(3)[facility] LABORATORY Eosinophils % 2.1 % [facility] LABORATORY Eosinophils Abs 0.1 0.0 - 0.4 [facility] x10(3)[facility] LABORATORY Basophils % 0.4 % [facility] LABORATORY Basophils Abs 0.0 0.0 - 0.1 [facility] x10(3)[facility] LABORATORY Immature Gran % 0.60 [...] Rain Gran Abs 0.04 0.00 - 0.04 x10(3)/[facility] Y [facility] LABORATORY Specimen Anatomical Collection Method Collection Time Receive d Time (Source) Location / / Volume Laterality Blood 05/21/2022 6:15 AM 2 6:38 EDT AM EDT Resulting Agency Comment Spec In Lab Edward Rodríguez MD HEMATOLOGY ORDERABLES Performing Organization Address City/State/[place] [address] (ABNORMAL) Hemogram (05/21/2022 6:15 AM EDT) [facility] Method Time Signature WBC 6.8 4.0 - 9.5 [facility] x10(3)/[facility] LABORATORY RBC 3.59 (L) 4.58 - [facility] 5.54 [facility] x10(6)/[facility] LABORATORY Hemoglobin 11.8 (L) 13.7 - [facility] 16.5 g/dL [facility] LABORATORY Hematocrit 34.5 (L) 40.5 - [facility] 48.5 % [facility] LABORATORY MCV 96.1 (H) 82.9 - [facility] 93.1 [facility] LABORATORY MCH 32.9 (H) 27.5 - [facility] 32.1 pg [facility] LABORATORY MCHC 34.2 32.0 - [facility] [facility] 35.7 g/dL [facility] LABORATORY Platelets 198 145 - 357 [facility] x10(3)/[facility] LABORATORY RDWSD 44.9 36.0 - [facility].0 [facility] LABORATORY RDWCV 12.6 11.4 - [facility] 13.8 % [facility] LABORATORY MPV 10.0 7.6 - 12.9 [facility] LABORATORY nRBC % Auto 0.3 % [facility] LABORATORY nRBC Abs Auto 0.020 (H) 0.000 - [facility] 0.000 [facility] x10(3)/[facility] LABORATORY Specimen Anatomical Collection Method Collection Time Receive d Time (Source) Location / / Volume Laterality Blood 05/21/2022 6:15 AM 2 6:38 EDT AM EDT Resulting Agency Comment Spec In Lab Edward Rodríguez MD HEMATOLOGY ORDERABLES Performing Organization Address City/State/ZIP Code Phon e Number [place] [id number] HOSPITAL LABORATORY Drive EKG 12 Lead (05/20/2022 7:04 PM EDT) Component Value Ref Range Test Analysis Performed Pathologis t Method Time At Signature Ventricular rate 101 BPM MUSE SYSTEM QRS Duration 116 ms MUSE SYSTEM Q-T Interval 378 ms MUSE SYSTEM QTC Calculated 490 ms MUSE SYSTEM (Bezet) Calculated R [place] -53 degrees MUSE SYSTEM Calculated T [place] 101 degrees MUSE SYSTEM INTERPRETATION Atrial fibrillation [...] Narrative 05/20/2022 7:09 PM EDT ?[facility] ? Cardiac Cathete rization/Intervention Report ? Patient Name: Koko Zamora. ? Procedure Date: 05/20/2022 ? A #: [id number] ? Primary Physician: Abundio Servin ? Case #: [id number] ? File Name: [id number] ? Catheterization Order Number: [id number] ? [facility] ? Final Report [place], [place] ? Patient Name: ? Koko J. Klarissa uson ? ID#: ?[id number] ? : ?1940 ? Procedure Date: ? [...] procedure was Urgent. The indication for ?the mineral ore processing labourer visit is cardiomyo nita. Chest pain symptom [...] ?3.5 guiding catheter and a 3.5 [address] [facility] [address] ??20 Mhz. ??Imaging ?was [...] premounted 2. 75 x 30 mm Rudy Remer (AMPARO) was deployed ? with a maximum [...] may require ?modification of this regimen. C [facility] Interventional Cardiology for ?questions. ?The [...] be different from the original. [facility] Cardiac Catheterization/Intervention Re port Patient Name: Koko Zamora Procedure Date: 05/20/2022 A #: [id number] Primary Physician: Abundio Servin Case #: File Name: [id number] Catheterization Order Number: [id number] [facility] Final Report [place], [place] Patient Name: Koko Zamora ID#: [id number] : 1940 Procedure Date: May 20, 2022 [...] designated a s ASA Class IV. The [facility] clinical frailty scale is 3: Managing Well. [...] e was Urgent. The indication for the mineral ore processing labourer visit is cardiomyopathy. C hest pain symptom [...] 3.5 guiding catheter and a 3.[address] [facility] [address] 20 Mhz. Imaging was successful. Image [...] A premounted 2.75 x 30 mm Rudy Remer (AMPARO) was deployed with a maximum inflation [...] require modification of this regimen. Consult D [facility] Interventional Cardiology for questions. [...] Signature POC Glucose 123 65 - 199 [facility] LABORATORY Comment: Supplemental ranges: <140 mg/dL before meals <180 mg/dL all other times of the day Specimen Anatomical Collection Method Collection Time Receive d Time (Source) Location / / Volume Laterality Blood 05/20/2022 5:42 PM 2 5:42 EDT PM EDT Fito Summers MD POINT OF CARE TEST ORDERABLE S Performing Organization Address City/State/[place] [address] (ABNORMAL) BMP w/fasting Glucose (05/20/2022 10:50 AM EDT) P athologist Signature Glucose 152 (H) 65 - 99 [facility] Fasting mg/dL [facility] LABORATORY Comment: ?Fasting* Glucose Interpretive [...] of Diabetes Mellitus, Position Statement from the [place] [employer]. ??Diabete s Care, Volume 33, [...] Organization Address City/State/[place] [address] Heparin (unfractionated) Level (05/20/2022 [...] Organization Address City/State/[place] [address] (ABNORMAL) Differential, Automated (05/20/2022 5:02 AM EDT) Patholo gist Method Time Signature Neutrophils % 58.1 % [facility] LABORATORY Neutr Abs (ANC) 4.52 1.70 - [facility] 6.10 [facility] x10(3)/[facility] LABORATORY Lymphocytes % 24.1 % [facility] LABORATORY Lymphocytes Abs 1.9 0.9 - 3.2 [facility] x10(3)/[facility] LABORATORY Monocytes % 13.8 % [facility] LABORATORY Monocyte Abs 1.1 (H) 0.3 - 0.9 [facility] x10(3)/[facility] LABORATORY Eosinophils % 2.6 % [facility] LABORATORY Eosinophils Abs 0.2 0.0 - 0.4 [facility] x10(3)[facility] LABORATORY Basophils % 0.8 % [facility] LABORATORY Basophils Abs 0.1 0.0 - 0.1 [facility] x10(3)/[facility] LABORATORY Immature Gran [...] 0.05 (H) 0.00 - 0.04 x10(3)/[facility] LABORATORY Specimen Anatomical Collection Method Collection Time Receive d Time (Source) Location / / Volume Laterality Blood 05/20/2022 5:02 AM 5:19 EDT AM EDT Resulting Agency Comment Spec In Lab Edward Rodríguez MD HEMATOLOGY ORDERABLES Performing Organization Address City/State/[place] [address] (ABNORMAL) Hemogram (05/20/2022 5:02 AM EDT) Analysis Performed At Patho logist Time Signature WBC 7.8 4.0 - 9.5 [facility] x10(3)/[facility] LABORATORY RBC 3.53 (L) 4.58 - [facility] 5.54 [facility] x10(6)/[facility] LABORATORY Hemoglobin 11.4 (L) 13.7 - [facility] 16.5 g/dL [facility] LABORATORY Hematocrit 34.3 (L) 40.5 - [facility] 48.5 % [facility] LABORATORY MCV 97.2 (H) 82.9 - [facility] 93.1 [facility] LABORATORY MCH 32.3 (H) 27.5 - [facility] 32.1 pg [facility] LABORATORY MCHC 33.2 32.0 - [facility] 35.7 g/dL [facility] LABORATORY Platelets 181 145 - 357 [facility] x10(3)/[facility] LABORATORY RDWSD 46.4 (H) 36.0 - [facility] 45.0 [facility] LABORATORY RDWCV 13.0 11.4 - [facility] 13.8 % [facility] LABORATORY MPV 10.4 7.6 - 12.9 [facility] LABORATORY nRBC % Auto 0.0 % [facility] LABORATORY nRBC Abs Auto 0.000 0.000 - [facility] 0.000 [facility] x10(3)/[facility] LABORATORY Specimen Anatomical Collection Method Collection Time Receive d Time (Source) Location / / Volume Laterality Blood 05/20/2022 5:02 AM 2 5:19 EDT AM EDT Resulting Agency Comment Spec In Lab Edward Rodríguez MD HEMATOLOGY ORDERABLES Performing Organization Address City/State/Z[place] [address] Heparin (unfractionated) Level (05/19/2022 [...] Organization Address City/State/[place] [address] (ABNORMAL) Differential, Automated (05/19/2022 3:26 AM EDT) [facility] Method Time Signature Neutrophils % 62.1 % [facility] LABORATORY Neutr Abs (ANC) 4.59 1.70 - [facility] 6.10 [facility] x10(3)/[facility] LABORATORY Lymphocytes % 22.1 % [facility] LABORATORY Lymphocytes Abs 1.6 0.9 - 3.2 [facility] x10(3)/[facility] LABORATORY Monocytes % 13.5 % [facility] LABORATORY Monocyte Abs 1.0 (H) 0.3 - 0.9 [facility] x10(3)/[facility] LABORATORY Eosinophils % 1.3 % [facility] LABORATORY Eosinophils Abs 0.1 0.0 - 0.4 [facility] x10(3)/[facility] LABORATORY Basophils % 0.5 % [facility] LABORATORY Basophils Abs 0.0 0.0 - 0.1 [facility] x10(3)/[facility] LABORATORY Immature Gran [...] Rain Gran Abs 0.04 0.00 - 0.04 x10(3)/[facility] LABORATORY Specimen Anatomical Collection Method Collection Time Receive d Time (Source) Location / / Volume Laterality Blood 05/19/2022 3:26 AM 2 3:59 EDT AM EDT Resulting Agency Comment Spec In Lab Edward Rodríguez MD HEMATOLOGY ORDERABLES Performing Organization Address City/State/[place] [address] (ABNORMAL) Hemogram (05/19/2022 3:26 AM EDT) Analysis Performed At [facility] logist Time Signature WBC 7.4 4.0 - 9.5 [facility] x10(3)/[facility] LABORATORY RBC 3.74 (L) 4.58 - [facility] 5.54 [facility] x10(6)/[facility] LABORATORY Hemoglobin 12.1 (L) 13.7 - [facility] 16.5 g/dL [facility] LABORATORY Hematocrit 36.4 (L) 40.5 - [facility] 48.5 % [facility] LABORATORY MCV 97.3 (H) 82.9 - [facility]O 93.1 [facility] LABORATORY MCH 32.4 (H) 27.5 - [facility] 32.1 pg [facility] LABORATORY MCHC 33.2 32.0 - [facility] 35.7 g/dL [facility] LABORATORY Platelets 168 145 - 357 [facility] x10(3)/[facility] LABORATORY RDWSD 46.9 (H) 36.0 - [facility] 45.0 [facility] LABORATORY RDWCV 13.0 11.4 - [facility] 13.8 % [facility] LABORATORY MPV 10.5 7.6 - 12.9 [facility] fL [facility] LABORATORY nRBC % Auto 0.0 % [facility] LABORATORY nRBC Abs Auto 0.000 0.000 - [facility] 0.000 [facility] x10(3)/[facility] LABORATORY Specimen Anatomical Collection Method Collection Time Receive d Time (Source) Location / / Volume Laterality Blood 05/19/2022 3:26 AM 3:59 EDT AM EDT Resulting Agency Comment Spec In Lab Edward Rodríguez MD HEMATOLOGY ORDERABLES Performing Organization Address City/State/[place] [address] TSH (05/18/2022 8:00 PM EDT) P athologist Signature TSH 2.27 0.27 - 4.20 [facility] mcIU/mL [facility] LABORATORY Comment: Reference Interval (mcIU/mL): Females: ??First Trimester: 0.23-3.88 ??Second Trimester: 0.22-3.90 ??Third Trimester: 0.44-4.66 Specimen Anatomical Collection Method Collection Time Receive d Time (Source) Location / / Volume Laterality Blood 05/18/2022 8:00 PM 2 8:06 EDT PM EDT Resulting Agency Comment Spec In Lab Fito Summers MD CHEMISTRY ORDERABLES Performing Organization Address City/State/[place] [address] (ABNORMAL) Differential, Automated (05/18/2022 3:34 AM EDT) [facility] Method Time Signature Neutrophils % 67.2 % [facility] LABORATORY Neutr Abs (ANC) 5.89 1.70 - [facility] 6.10 [facility] x10(3)/[facility] LABORATORY Lymphocytes % 17.1 % [facility] LABORATORY Lymphocytes Abs 1.5 0.9 - 3.2 [facility] x10(3)/[facility] LABORATORY Monocytes % 13.6 % [facility] LABORATORY Monocyte Abs 1.2 (H) 0.3 - 0.9 [facility] x10(3)/[facility] LABORATORY Eosinophils % 1.0 % [facility] LABORATORY Eosinophils Abs 0.1 0.0 - 0.4 [facility] x10(3)/[facility] LABORATORY Basophils % 0.6 % [facility] LABORATORY Basophils Abs 0.0 0.0 - 0.1 [facility] x10(3)/[facility] LABORATORY Immature Gran [...] Gran Abs 0.04 0.00 - 0.04 x10(3)/[facility] LABORATORY Specimen Anatomical Collection Method Collection Time Receive d Time (Source) Location / / Volume Laterality Blood 05/18/2022 3:34 AM 2 3:48 EDT AM EDT Resulting Agency Comment Spec In Lab Edward Rodríguez MD HEMATOLOGY ORDERABLES Performing Organization Address City/State/[place] [address] (ABNORMAL) Hemogram (05/18/2022 3:34 AM EDT) Analysis Performed At Patho logist Time Signature WBC 8.8 4.0 - 9.5 [facility] x10(3)/[facility] LABORATORY RBC 3.45 (L) 4.58 - [facility] 5.54 [facility] x10(6)/[facility] LABORATORY Hemoglobin 11.2 (L) 13.7 - [facility] 16.5 g/dL [facility] LABORATORY Hematocrit 33.0 (L) 40.5 - [facility] 48.5 % [facility] LABORATORY MCV 95.7 (H) 82.9 - [facility] 93.1 [facility] LABORATORY MCH 32.5 (H) 27.5 - [facility] 32.1 pg [facility] LABORATORY MCHC 33.9 32.0 - [facility] 35.7 g/dL [facility] LABORATORY Platelets 130 (L) 145 - 357 [facility] x10(3)/[facility] LABORATORY RDWSD 46.2 (H) 36.0 - [facility] 45.0 [facility] LABORATORY RDWCV 13.2 11.4 - [facility] 13.8 % [facility] LABORATORY MPV 10.8 7.6 - 12.9 [facility] LABORATORY nRBC % Auto 0.0 % [facility] LABORATORY nRBC Abs Auto 0.000 0.000 - [facility] 0.000 [facility] x10(3)/[facility] LABORATORY Specimen Anatomical Collection Method Collection Time Receive d Time (Source) Location / / Volume Laterality Blood 05/18/2022 3:34 AM 3:48 EDT AM EDT Resulting Agency Comment Spec In Lab Edward Rodríguez MD HEMATOLOGY ORDERABLES Performing Organization Address City/State/[place] [address] Heparin (unfractionated) Level (05/18/2022 [...] Summers MD HEMATOLOGY ORDERABLES Performing Organization Address City/[facility]/ZIP [place] [address] Magnesium (05/17/2022 3:33 AM EDT) athologist Signature Magnesium 0.76 0.69 - 1.07 [facility] mmol/L [facility] LABORATORY Specimen Anatomical Collection Method Collection Time Receive d Time (Source) Location / / Volume Laterality Blood Venous Draw / 05/17/2022 3:33 AM 05/17/20 4:05 Unknown EDT AM EDT Resulting Agency Comment Spec In Lab Dottie Hill APRN CHEMISTRY ORDERABLES Performing Organization Address City/State/Z[place] [address] (ABNORMAL) Basic Metabolic Panel (non-fasting) (05/17/2022 3:33 AM EDT) athologist Signature Glucose Lvl 158 65 - 199 [facility] mg/dL [facility] LABORATORY Comment: Diabetes: >=200 mg/dL [...] Organization Address City/State/[place] [address] (ABNORMAL) Differential, Automated (05/17/2022 3:33 AM EDT) [facility] gist Method Time Signature Neutrophils % 65.5 % [facility] LABORATORY Neutr Abs (ANC) 6.84 (H) 1.70 - [facility] 6.10 [facility] x10(3)/[facility] LABORATORY Lymphocytes % 19.7 % [facility] LABORATORY Lymphocytes Abs 2.1 0.9 - 3.2 [facility] x10(3)/[facility] LABORATORY Monocytes % 13.1 % [facility] LABORATORY Monocyte Abs 1.4 (H) 0.3 - 0.9 [facility] x10(3)/[facility] LABORATORY Eosinophils % 0.6 % [facility] LABORATORY Eosinophils Abs 0.1 0.0 - 0.4 [facility] x10(3)/[facility] LABORATORY Basophils % 0.6 % [facility] LABORATORY Basophils Abs 0.1 0.0 - 0.1 [facility] x10(3)/[facility] LABORATORY Immature Gran % 0.50 % [...] 0.05 (H) 0.00 - 0.04 x10(3)/[facility] LABORATORY Specimen Anatomical Collection Method Collection Time Receive d Time (Source) Location / / Volume Laterality Blood 05/17/2022 3:33 AM 3:53 EDT AM EDT Resulting Agency Comment Spec In Lab Edward Rodríguez MD HEMATOLOGY ORDERABLES Performing Organization Address City/State/[place] [address] (ABNORMAL) Hemogram (05/17/2022 3:33 AM EDT) Analysis Performed At Patho logist Time Signature WBC 10.4 (H) 4.0 - 9.5 [facility] x10(3)/[facility] LABORATORY RBC 3.72 (L) 4.58 - [facility] 5.54 [facility] x10(6)/[facility] LABORATORY Hemoglobin 12.0 (L) 13.7 - [facility] 16.5 g/dL [facility] LABORATORY Hematocrit 36.4 (L) 40.5 - [facility] 48.5 % [facility] LABORATORY MCV 97.8 (H) 82.9 - [facility] 93.1 [facility] LABORATORY MCH 32.3 (H) 27.5 - [facility] 32.1 pg [facility] LABORATORY MCHC 33.0 32.0 - [facility] 35.7 g/dL [facility] LABORATORY Platelets 149 145 - 357 [facility] x10(3)/[facility] LABORATORY RDWSD 48.7 (H) 36.0 - [facility] 45.0 [facility] RDWCV 13.5 11.4 - [facility] 13.8 % [facility] LABORATORY MPV 10.6 7.6 - 12.9 [facility] LABORATORY nRBC % Auto 0.0 % [facility] LABORATORY nRBC Abs Auto 0.000 0.000 - [facility] 0.000 [facility] x10(3)/[facility] LABORATORY Specimen Anatomical Collection Method Collection Time Receive d Time (Source) Location / / Volume Laterality Blood 05/17/2022 3:33 AM 3:53 EDT AM EDT Resulting Agency Comment Spec In Lab Edward Rodríguez MD HEMATOLOGY ORDERABLES Performing Organization Address City/State/[place] [address] (ABNORMAL) Urinalysis Microscopic Exam [...] Organization Address City/State/ZIP Code Phon e Number [place] [id number] HOSPITAL LAB[address]ORY Drive (ABNORMAL) Urinalysis with reflex Culture (05/16/2022 11:15 PM EDT) Patholo gist Method Time Signature Glucose UA Negative Negative [facility] mg/dL [facility] LABORATORY Protein UA Negative Negative [facility] mg/dL [facility] LABORATORY Bilirubin UA Negative Negative [facility] mg/dL [facility] LABORATORY Comment: Clinical correlation required [...] [facility] Nitrite UA Negative Negative [facility] LABORATORY Leukocytes UA Negative Negative [facility] LABORATORY Appearance UA Clear Clear [facility] LABORATORY Spec Ninole UA 1.021 1.005 - 1.030 [facility] LABORATORY Color UA Yellow Yellow [facility] LABORATORY Culture Reflexed No [facility] LABORATORY Specimen Anatomical Collection Method Collection Time Receive d Time (Source) Location / / Volume Laterality Clean Catch 05/16/2022 11:15 05/16/2022 Urine PM EDT 11:30 PM EDT Resulting Agency Comment Spec In Lab Fito Summers MD URINE ORDERABLES Performing Organization Address City/State/[place] [address] Heparin (unfractionated) Level (05/16/2022 [...] Organization Address City/State/ZIP Code Phon e Number [place] [id number]OSPITAL LABORATORY Drive XR Chest One View [...] have questions please contact the health animal care worker that requested your imaging first. ? Electronically signed by: Tiffanie George MD , [facility] ([phone]), at 05/16/2022 9:27 PM Narrative 05/16/2022 9:27 [...] have questions please contact the health animal care worker that requested your imaging first. Electronically signed by: Tiffanie George MD , [facility] ([phone]), at 05/16/2022 9:27 PM Fito Summers MD IMG DX ORDERABLES EKG 12 Lead (05/16/2022 8:57 PM EDT) Component Value Ref Range Test Analysis Performed Pathologis t Method Time At Signature Ventricular rate 117 BPM MUSE SYSTEM QRS Duration 112 ms MUSE SYSTEM Q-T Interval 346 ms MUSE SYSTEM QTC Calculated 482 ms MUSE SYSTEM (Bezet) Calculated R [place] -48 degrees MUSE SYSTEM Calculated T [place] 111 degrees MUSE SYSTEM INTERPRETATION Atrial fibrillation with rapid ventricular response MUSE SYSTEM Left anterior fascicular block Minimal voltage criteria for LVH, may be normal variant ( [place] product ) Nonspecific ST and T wave [...] Organization Address City/State/[place] [address] ECHOCARDIO[address] COMPLETE W CONTRAST (05/16/2022 12:49 PM EDT) P athologist Signature EF 28 HEARTLAB SYSTEM Anatomical Region Laterality Modality Cardiac Other Specimen (Source) Anatomical Collection Method Collection Time Re ceived Time Location / / Volume Laterality 05/16/2022 11:22 AM EDT Narrative 05/16/2022 1:54 PM EDT ?[facility] ?[address] ? [place] [address] ?Voice: ?Fax: ? Echocardiogram Report Name: ZAMORAKOKO ?Study Date: 05/16/2022 11:22 AM ? Patient Location: 3WST 0303 B : 1940 ? Height: 67.5 in ? Account: [id number] Age: 81 yrs ? Weight: 176 lb [...] and LV systolic dysfunction are new. Procedure Complete-[id number]. Image enhancement Optiso n was used for [...] note might [place] [address] Voice: Fax: Echocardiogram Report Name: KOKO ZAMORA Study Date: 05/2022 11:22 AM Patient Location: [address] [place] [address] : 1940 Height: 67.5 in Account: [id number] Age: 81 yrs Weight: 176 lb Gender: [...] and LV systolic dysfunction are new. Procedure Complete-[id number]. Image enhancement Optiso n was used for [...] (ABNORMAL) Differential, Automated (05/16/2022 3:01 AM EDT) [facility] Method Time Signature Neutrophils % 78.8 % [facility] LABORATORY Neutr Abs (ANC) 9.11 (H) 1.70 - [facility] 6.10 [facility] x10(3)/[facility] L LABORATORY Lymphocytes % 9.4 % [facility] LABORATORY Lymphocytes Abs 1.1 0.9 - 3.2 [facility] x10(3)/[facility] LABORATORY Monocytes % 10.9 % [facility] LABORATORY Monocyte Abs 1.3 (H) 0.3 - 0.9 [facility] x10(3)/[facility] LABORATORY Eosinophils % 0.0 % [facility] LABOR[facility]ORY Eosinophils Abs 0.0 0.0 - 0.4 [facility] x10(3)/[facility] LABORATORY Basophils % 0.3 % [facility] Basophils Abs 0.0 0.0 - 0.1 [facility] x10(3)/[facility] LABORATORY Immature Gran % 0.60 % [...] 0.07 (H) 0.00 - 0.04 x10(3)/[facility] LABORATORY Specimen Anatomical Collection Method Collection Time Receive d Time (Source) Location / / Volume Laterality Blood 05/16/2022 3:01 AM 3:36 EDT AM EDT Resulting Agency Comment Spec In Lab Erin Garza MD HEMATOLOGY ORDERABLES Performing Organization Address City/State/[place] [address] (ABNORMAL) Hemogram (05/16/2022 3:01 AM EDT) Analysis Performed At Patho logist Time Signature WBC 11.6 (H) 4.0 - 9.5 [facility] x10(3)/[facility] LABORATORY RBC 3.62 (L) 4.58 - [facility] 5.54 [facility] x10(6)/[facility] LABORATORY Hemoglobin 12.0 (L) 13.7 - [facility] 16[facility] g/dL [facility] LABORATORY Hematocrit 35.3 (L) 40.5 - [facility] 48.5 % [facility]ATORY MCV 97.5 (H) 82.9 - [facility] 93.1 [facility] LABORATORY MCH 33.1 (H) 27.5 - [facility] 32.1 pg [facility] LABORATORY MCHC 34.0 32.0 - [facility] 35.7 g/dL [facility] LABORATORY Platelets 151 145 - 357 [facility] x10(3)/[facility] LABORATORY RDWSD 47.6 (H) 36.0 - [facility] 45.0 [facility] LABORATORY RDWCV 13.3 11.4 - [facility] XIAO 13.8 % [facility] LABORATORY MPV 10.5 7.6 - 12.9 [facility] LABORATORY nRBC % Auto 0.0 % [facility] nRBC Abs Auto 0.000 0.000 - [facility] 0.000 [facility] x10(3)/[facility] LABORATORY Specimen Anatomical Collection Method Collection Time Receive d Time (Source) Location / / Volume Laterality Blood 05/16/2022 3:01 AM 2 3:36 EDT AM EDT Resulting Agency Comment Spec In Lab Erin Garza MD HEMATOLOGY ORDERABLES Performing Organization Address City/State/ZIP Code Phon e Number [address] Phosphorus (05/16/2022 3:01 AM EDT) athologist Signature Phosphorus 3.7 2.5 - 4.5 [facility] mg/dL [facility] LABORATORY Specimen Anatomical Collection Method Collection Time Receive d Time (Source) Location / / Volume Laterality Blood 05/16/2022 3:01 AM 2 3:36 EDT AM EDT Resulting Agency Comment Spec In Lab Fito Summers MD CHEMISTRY ORDERABLES Performing Organization Address City/[facility]/ZIP Code Phon e Number [address] Magnesium (05/16/2022 3:01 AM EDT) athologist Signature Magnesium 0.77 0.69 - 1.07 [facility] mmol/L [facility] LABORATORY Specimen Anatomical Collection Method Collection Time Receive d Time (Source) Location / / Volume Laterality Blood 05/16/2022 3:01 AM 2 3:36 EDT AM EDT Resulting Agency Comment Spec In Lab Fito Summers MD CHEMISTRY ORDERABLES Performing Organization Address City/[facility]/ZIP [place] [address] (ABNORMAL) Basic Metabolic Panel (non-fasting) (05/16/2022 3:01 AM EDT) P athologist Signature Glucose Lvl 222 (H) 65 - 199 [facility] mg/dL [facility] LABORATORY Comment: Diabetes: >=200 mg/dL [...] Organization Address City/State/[place] [address] (ABNORMAL) BLOOD GAS 2 ARTERIAL (05/15/2022 3:33 PM EDT) Analysis Performed At Patho logist Time Signature pH Art 7.33 (L) 7.35 - [facility] 7.45 [facility] LABORATORY pCO2 Art 41 35 - 45 [facility] mmHg [facility] LABORATORY pO2 Art 131 (H) 85 - 104 [facility] LABORATORY HCO3 Art 21.1 20.0 - [facility] 26.0 [facility] mmol/L [facility] LABORATORY BE Art -4.8 (L) -3.0 - 3.0 [facility] mmol/L [facility] LABORATORY Hgb Blood Gas 13.4 (L) 13.7 - [facility] 16.5 g/dL [facility] LABORATORY O2HB Art 96.9 94.0 - [facility] 97.0 % [facility] LABORATORY COHB Art 1.4 % [facility] Blood 113 (H) 98 - 107 mmol/L [facility] LABORATORY Gluc Whole Bld 136 65 - 199 mg/dL [facility] LABORATORY Comment: Diabetes: >=200 mg/dL plus symp toms. Lactate WB 2.0 0.5 - 2.2 mmol/L [facility] LABORATORY Specimen Anatomical Collection Method Collection Time Receive d Time (Source) Location / / Volume Laterality Blood 05/15/2022 3:33 PM 2 3:[address] Jamel Torre MD CHEMISTRY ORDERABLES Performing Organization Address City/State/[place] [address] (ABNORMAL) BLOOD GAS 2 ARTERIAL (05/15/2022 2:06 PM EDT) Analysis Performed At Patho logist Time Signature pH Art 7.39 7.35 - [facility] 7.45 [facility] LABORATORY pCO2 Art 35 35 - 45 [facility] mmHg [facility] LABORATORY pO2 Art 135 (H) 85 - 104 [facility] LABORATORY HCO3 Art 20.8 20.0 - [facility] 26.0 [facility] mmol/L [facility] LABORATORY BE Art -4.2 (L) -3.0 - 3.0 [facility] mmol/L [facility] LABORATORY Hgb Blood Gas 14.5 13.7 - [facility] 16.5 g/dL [facility] LABORATORY O2HB Art 97.2 (H) 94.0 - [facility] 97.0 % [facility] LABORATORY COHB Art 1.2 % [facility] Blood 109 (H) 98 - 107 mmol/L [facility] LABORATORY Gluc Whole Bld 152 65 - 199 mg/dL [facility] LABORATORY Comment: Diabetes: >=200 mg/dL plus symp toms. Lactate WB 1.5 0.5 - 2.2 mmol/L [facility] LABORATORY Specimen Anatomical Collection Method Collection Time Receive d Time (Source) Location / / Volume Laterality Blood 05/15/2022 2:06 PM 2:[address] Jamel Torre MD CHEMISTRY ORDERABLES Performing Organization Address City/[facility]/[place] [address] (ABNORMAL) Prothrombin Time (05/15/2022 12:30 PM EDT) P athologist Signature PT 12.9 (H) 9.4 - 12.5 [facility] LABORATORY INR 1.1 [facility] [...] Morales DO HEMATOLOGY ORDERABLES Performing Organization Address City/[facility]/[place]IP [place] [address] (ABNORMAL) APTT (05/15/2022 12:30 [...] Daquan Andrew HEMATOLOGY ORDERABLES Performing Organization Address City/[facility]/ZIP Code Phon e Number [address] Gold Tube HOLD (05/15/2022 12:20 PM EDT) P athologist Signature Gold Hold Sample in [facility]. [facility] LABORATORY Specimen Anatomical Collection Method Collection Time Receive d Time (Source) Location / / Volume Laterality Blood No Charge / 05/15/2022 12:20 05/15/2022 Unknown PM EDT 12:20 PM EDT Lc TRIPP CHEMISTRY ORDERABLES Performing Organization Address City/[facility]/ZIP Code Phon e Number [address] Type and Screen Validity (05/15/2022 12:00 PM EDT) [facility] Method Time Signature T&S only valid [facility] at [facility] LABORATORY Comment: This Type and Screen result is only valid at the [facility] Specimen Anatomical Collection Method Collection Time Receive d Time (Source) Location / / Volume Laterality Blood 05/15/2022 12:00 05/15/2022 PM EDT 12:17 PM EDT Resulting Agency Comment Spec In Lab Lc Dominick Kimberly TRIPP BLOOD BANK ORDERABLES Performing Organization Address City/[facility]/ZIP Code Phon e Number [address] ABORH Recheck Status (05/15/2022 12:00 PM EDT) [facility] gist Method Time Signature ABORH Recheck Order Placed [facility] LABORATORY ABORH Type Complete [facility] LABORATORY Specimen Anatomical Collection Method Collection Time Receive d Time (Source) Location / / Volume Laterality Blood 05/15/2022 12:00 05/15/2022 PM EDT 12:17 PM EDT Resulting Agency Comment Spec In Lab Lc Harris PA BLOOD BANK ORDERABLES Performing Organization Address City/[facility]/ZIP [place] [address] CK (05/15/2022 12:00 PM EDT) P athologist Signature CK, Total 87 0 - 200 [facility] unit/L [facility] LABORATORY Specimen Anatomical Collection Method Collection Time Receive d Time (Source) Location / / Volume Laterality Blood Venous Draw / 05/15/2022 12:00 05/15/2022 Unknown PM EDT 12:19 PM EDT Resulting Agency Comment Spec In Lab Fito Summers MD CHEMISTRY ORDERABLES Performing Organization Address City/State/Z[place] [address] Antibody screen (05/15/2022 12:00 PM EDT) [facility] Method Time Signature Ab Screen Negative [facility] LABORATORY Expires at 05/18/2022 [facility] [id number] on: [facility] LABORATORY Specimen Anatomical Collection Method Collection Time Receive d Time (Source) Location / / Volume Laterality Blood 05/15/2022 12:00 05/15/2022 PM EDT 12:17 PM EDT Resulting Agency Comment Spec In Lab Lc TRIPP BLOOD BANK ORDERABLES Performing Organization Address City/[facility]/Z[place] [address] ABO/Rh Typing (05/15/2022 12:00 PM EDT) P athologist Signature ABORh Type O Pos [facility]OR[facility]ORY Specimen Anatomical Collection Method Collection Time Receive d Time (Source) Location / / Volume Laterality Blood 05/15/2022 12:00 05/15/2022 PM EDT 12:17 PM EDT Resulting Agency Comment Spec In Lab Lc TRIPP BLOOD BANK ORDERABLES Performing Organization Address City/[facility]/ZIP [place] [address] (ABNORMAL) Differential, Automated (05/15/2022 12:00 PM EDT) [facility] Method Time Signature Neutrophils % 79.4 % [facility]ORY Neutr Abs (ANC) 7.49 (H) 1.70 - [facility] 6.10 [facility] x10(3)/[facility] LABORATORY Lymphocytes % 11.3 % [facility] Lymphocytes Abs 1.1 0.9 - 3.2 [facility] x10(3)/[facility] LABORATORY Monocytes % 7.8 % [facility] Monocyte Abs 0.7 0.3 - 0.9 [facility] x10(3)/[facility] LABORATORY Eosinophils % 0.6 % [facility] Eosinophils Abs 0.1 0.0 - 0.4 [facility] x10(3)/[facility] LABORATORY Basophils % 0.6 % [facility] Basophils Abs 0.1 0.0 - 0.1 [facility] x10(3)/[facility] LABORATORY Immature Gran % 0.30 % [...] Rain Gran Abs 0.03 0.00 - 0.04 x10(3)/[facility] LABORATORY Specimen Anatomical Collection Method Collection Time Receive d Time (Source) Location / / Volume Laterality Blood 05/15/2022 12:00 05/15/2022 PM EDT 12:19 PM EDT Resulting Agency Comment Spec In Lab Lc TRIPP HEMATOLOGY ORDERABLES Performing Organization Address City/State/[place] [address] (ABNORMAL) Hemogram (05/15/2022 12:00 PM EDT) Analysis Performed At Patho logist Time Signature WBC 9.4 4.0 - 9.5 [facility] x10(3)/[facility] LABORATORY RBC 4.48 (L) 4.58 - [facility] 5.54 [facility] x10(6)/[facility] LABORATORY Hemoglobin 14.5 13.7 - [facility] 16.[facility] g/dL [facility] LABORATORY Hematocrit 42.4 40.5 - [facility] 48.5 % [facility] LABORATORY MCV 94.6 (H) 82.9 - [facility] 93.1 [facility] LABORATORY MCH 32.4 (H) 27.5 - [facility] 32.1 pg [facility] LABORATORY MCHC 34.2 32.0 - [facility] 35.7 g/dL [facility] LABORATORY Platelets 209 145 - 357 [facility] x10(3)/[facility] LABORATORY RDWSD 45.9 (H) 36.0 - [facility] 45.0 [facility] LABORATORY RDWCV 13.1 11.4 - [facility] 13.8 % [facility] LABORATORY MPV 10.5 7.6 - 12.9 [facility] LABORATORY nRBC % Auto 0.0 % [facility] LABORATORY nRBC Abs Auto 0.000 0.000 - [facility] 0.000 [facility] x10(3)/[facility] LABORATORY Specimen Anatomical Collection Method Collection Time Receive d Time (Source) Location / / Volume Laterality Blood 05/15/2022 12:00 05/15/2022 PM EDT 12:19 PM EDT Resulting Agency Comment Spec In Lab Lc TRIPP HEMATOLOGY ORDERABLES Performing Organization Address City/State/[place] [address] (ABNORMAL) Basic Metabolic Panel (non-fasting) (05/15/2022 12:00 PM EDT) P athologist Signature Glucose Lvl 203 (H) 65 - 199 [facility] mg/dL [facility] LABORATORY Comment: Diabetes: >=200 mg/dL [...] Organization Address City/State/[place] [address] documented in this encounter [...] Reason: Transfer to a Procedural area)1955 ([facility] Unhold - Provider: Admin Adt) [...] Reason: Transfer to a Procedural area)1955 ([facility] Unhold - Provider: Admin Adt)2131 [...] Reason: Transfer to a Procedural area)1955 ([facility] Unhold - Provider: Admin Adt) [...] Reason: Transfer to a Procedural area)1955 ([facility] Unhold - Provider: Admin Adt) 0816 (Given - Provider: Etta contreras RN) 100 mg, Oral, DAILY, First dose on Brandi at 0900, Until Discontinued, Routine valsartan (Diovan) tablet 40 mg 0838 (Given - Provider : Caroline Zamora, DION)2008 (Given - Provider: Nuris Lesetr RN) 0853 (Given - Provider: Barbie Joyce, [...] Reason: Transfer to a Procedural area)1955 ([facility] Unhold - Provider: Admin Adt) [...] bisacodyL (Dulcolax) suppository 10 mg 1 751 ([facility] Hold - Provider: Admin Adt - Reason: Transfer to a Procedural area)1955 ([facility] Unhold - Provider: Admin Adt) [...] (porcine) (1,000 units/mL) injection 0-8,000 Units 175 ([facility] Hold - Provider: Admin Adt - Reason: Transfer to a Procedural area)1955 ([facility] Unhold - Provider: Admin Adt) [...] Reason: Transfer to a Procedural area)1955 ([facility] Unhold - Provider: Admin Adt) [...] - Pr ovider: Emily Sauceda RN) 1750 ([facility] Hold - Provider: Admin Adt - R lexie: Transfer to a Procedural area)1955 ([facility] Unhold - Provider: Admin Adt) [...] (Roxicodone) tablet 10-15 mg(Linked Group 2) 1750 ([facility] Hold - Provider: Admin Adt - Reason: Transfer to a Procedural area)1955 ([facility] Unhold - Provider: Admin Adt) [...] Reason: Transfer to a Procedural area)1955 ([facility] Unhold - Provider: Admin Adt) [...]
Routine documented in this encounter Care Teams Master Deputy [employer] [address] Security Relationship Specialty Start Date End Date Bobby Das MD PCP - General 10/02/[address] [place] [address] [place] [id number] documented as of this encounter
--- OUTSIDE RECORDS SUMMARY | 2022-07-26 10:53 | XMS_ITS | Encounter Summary ---
:1940 Author Organization [facility] [place] [address] Care Team Providers Name Role Phone Bobby Das MD Primary Care Provider Reason for Referral Consultation (Routine) - Authorized Specialty Diagnoses / Procedures Referred By Contact Refer red To Contact Diagnoses Non-ST elevation myocardial infarction (NSTEMI) Limb ischemia Nasrin Parra PA [facility] Tobacco Treatment [facility] [place] [address] [place] [address] Referral ID Status Reason Start Date Expiration Visits Visits Date Requested Authorized [id number] Authorized Consult, 05/21/2022 05/21/2023 1 1 Test & Treat iagnostic Test (Routine) - Closed Specialty Diagnoses / Procedures Referred By Contact Refer red To Contact Cardiology Diagnoses Paroxysmal atrial fibrillation Nasrin Parra PA [facility] Non-Inv Card Lab Procedures Ziopatch 48 Hrs-15 Days [facility] [place] [address] [place] [address] Fax: Referral ID Status Reason Start Date Expiration Date Visits V isits Requested Authorized [id number] Closed Specialty 05/21/2022 10/21/2022 1 1 Service Requested Consultation (Routine) - Closed Specialty Diagnoses / Procedures Referred By Contact Refer red To Contact Cardiology Diagnoses HFrEF (heart failure with reduced ejection fraction) Paroxysmal atrial fibrillation Post-hospital follow-up, s/p PCI with stenting, heart failure Nasrin Parra PA [facility] Cardiology 4a [facility] D R [facility] [place] [address] [place] [address] Referral ID Status Reason Start Date Expiration Date Visits V isits Requested Authorized [id number] Closed Consult, 05/21/2022 05/21/2023 1 1 Test & Treat iagnostic Test (Routine) - Authorized Specialty Diagnoses / Procedures Referred By Contact Refer red To Contact Diagnoses Limb ischemia Nasrin Parra PA [facility] Vascular Lab 3v Procedures JOSSELYN, legs, multiple levels [facility] [place] [address] [place] [address] Referral ID Status Reason Start Expiration Visits Visits Date Date Requested Authorized [id number] Authorized Specialty 05/21/2022 05/21/2023 1 1 Service Requested [facility] (Routine) - Authorized Specialty Diagnoses / Procedures Referred By Contact Refer red To Contact Diagnoses Limb ischemia Fito Summers MD [facility], [facility] VASCULAR SURGERY [address] [place] [address] [address] Fax: Referral ID Status Reason Start Date Expiration Visits Visits Date Requested Authorized [id number] Authorized Consult, 05/21/2022 11/17/2022 999 999 Test & Treat Reason for Visit Reason Comments Left Leg Pain Auth/Cert Specialty Diagnoses / Procedures Referred By Contact Refer red To Contact Diagnoses Limb ischemia LLE thrombus Fito Summers MD [facility] [place] [address] Referral ID Status Reason Start Date Expiration Date Visits Requ ested Visits Authorized [id number] 1 1 Encounter Details Date Type Department Care Team Description 05/15/2022 - Hospital Intermediate Cardiac Ravi Summers MD [facility] [place] [address] Atrial fibrillation, unspecified type; 05/21/2022 Encounter Care Unit Wellington Gerard MD [facility] [place] [address] Non-ST elevation myocardial infarction ( NSTEMI); [facility] Limb isch emia; [facility] HFrEF (heart failure with re duced ejection fraction); [facility] [place]oxysma [place] [address] Social History Tobacco Use Types Packs/Day Years [...] onset Afib who presents in transfer from [facility] with acute limb ischemia of the LLE. [...] emergently went to the OR for L DATA REPORTING ANALYST transverse arteriotomy and primary repair, thromboembolectomy of L SFA/PFA/DATA REPORTING ANALYST, reperfusion venous drainage for 250 cc, [...] Discharge Condition: Good Discharge to: Home with [address] [address] Future Appointments and Orders Future Appointments and Orders Future Appointments Provider Department Dept Phone 05/23/2022 10:30 AM Loretta Cohen MD Dermatology at [facility] Arrive at: Chief Catalyst Operator [address] [place] [address] 06/07/2022 1:30 PM Gail Rae APRN Vascular Surgery at [facility] Arrive at: Chief Catalyst Operator Area [phone] 06/13/2022 7:30 AM Edson Lagos [place] Vascular Lab at [facility] Arrive at: Chief Catalyst Operator Area [phone] 06/13/2022 8:00 AM Fito Summers MD Vascular Surgery at [facility] Arrive at: Chief Catalyst Operator Area [phone] 06/13/2022 10:00 AM Alan Reid MD Cardiology at [facility] Arrive at: Chief Catalyst Operator Area [phone] Future Orders Complete By Expires Demetriusopatch 48 Hrs-15 Days [AMF8786 CPT(R)] 05/21/2022 11/20/2022 Process Instructions: Scheduling Instructions: Comments: Questions: Does the patient have a pacemaker? If yes provide HI/LO settings: Apply for 7 or 14 days?: 7 Where will study be performed?: [facility] Clinics JOSSELYN, legs, multiple levels [VAS8 Custom] 06/21/2022 (Approximate) 12/21/2022 Process Instructions: There is no in-house vascular laboratory animal facility supervisor available on weeknights (5pm-8am), weekends, or holidays. IF THIS IS A REQUEST FOR AN EMERGENT STUDY DURING THOSE HOURS, please have the senior provider responsible for the patient page the Vascular Surgery Fellow/Senior Resident litigation services manager to discuss options. Scheduling Instructions: Questions: Indication for study/signs & symptoms: ALI s/p L fem cutdown with thromboembolectomy Question to be answered: Perfusion to feet? Please check toe pressure Preferred location?: [facility] Clinics Referral to Cardiology [REF12 [...] Health. [address] [facility] [address] (home) Date of : 1940 Inpatient DOCUMENTATION FOR VNA SERVICES (INCLUDING THOSE PATIENTS WITH MEDICARE COVERAGE REQUIRING HOME VNA SERVICES AND/OR HOSPICE SERVICES) PATIENT'S LOCATION: Koko Zamora [address] [facility] [phone] (home) Cell: No relevant phone numbers on file. Oil Expeller's Name: Koko In discussion with the attending physician, it is certified that this patient is under their care and that they, or a Nurse Practitioner,Clinical Nurse specialist or Physician Housing Property Manager who is working directly with them, [...] for managing ADL's. HOME HEALTH CARE AGENCY: [facility] [address] [place] [id number] Start of care: Within 24 to 48 [...] obtained from this patient'sPCP: Bobby Das MD [address] [place] [phone] All A agencies which cover the [...] For any problems or questions please call [phone] For issues on weeknights after 5pm and weekends please call [phone] and ask for the Vascular Fellow litigation services manager. JOSEE Santiago Vascular Surgery 05/21/2022 documented [...] For any problems or questions please call [phone] For issues on weeknights after 5pm and weekends please call [phone] and ask for the Vascular Fellow litigation services manager. documented in this encounter Medications at [...] 04/12/20 21 (FLONASE) 50 mcg/actuation Nare route [place], Suspension daily as needed. fluorouraciL (EFUDEX) 5 [...] onset Afib who presents in transfer from [facility] with acute limb ischemia of the LLE. [...] status, full code. JOSEE Santiago 05/21/2022 Pager: [phone] Brannon Isaacs, PT - 05/21/2022 10:35 AM [...] dispo planning, use of walker, stairs Assessment: Kkoo Zamora was seen today for physical therapy [...] plan as stated. Time IN / OUT: 1270-3667 Total Minutes, Physical Therapy: 25 Billing Code: 2 BOSTON Isaacs DPT Pager: [phone] Physical Therapy Inpatient Rehabilitation Department Wellington Jean MD - 05/21/2022 10:16 AM EDT Images from the original note were not included. Brief Cardiology Consult: Kook Zamora is a 81 y.o. gentleman with [...] from 05/15/2022 in Intermediate Cardiac Care Unit [facility] Office Visit from 04/17/2021 in Pain and Spine Center at [facility] Weight 79.8 kg (175 lb [...] and plan of care per Dr. Mcnamara (dry house operator). 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 His [...] to Hosp-Admission (Current) from 05/15/2022 in 4 [facility] Office Visit from 04/17/2021 in Pain and Spine Center at [facility] Weight 79.8 kg (175 lb [...] findings andplan of care per Dr. Mcnamara (dry house operator). Please refer to her note above [...] a mitral repair in 2000 (not at [facility]) with no CAD at that [...] AF and the first documented HR at [facility] was 125 bpm (presented to [...] onset Afib who presents in transfer from [facility] with acute limb ischemia of the LLE. [...] management following Dottie Hill APRN 05/20/2022 Pager: [phone] Laney Atkins RN - 05/20/2022 1:14 AM EDT Pt Koko transferred to room from [facility]. A&Ox4, oriented to room and call boo. Masimo and telemetry placed. In agreement with assessment as documented this evening by Nuris ASHLEY. No complaints at this time. Pt aware of NPO status and plan for cardiac cath in AM. Urinal provided. Resting comfortably in bed. Nuris Lester RN - 05/20/2022 1:09 AM EDT Pt. Transferred to [facility]. RN accompanied patient to floor and handed off to [facility] RN Dottie Hill APRN - 05/19/2022 10:02 AM EDT Vascular Surgery Progress Note Koko Zamora is a 81 y.o. male with w new onset Afib who presents in transfer from [facility] with acute limb ischemia of the LLE. ?? The patient had sudden pain starting at 630 05/15/22, he presented [facility] where he was placed on heparin. [...] management following Dottie Hill APRN 05/19/2022 Pager: [phone] Emily Greer RN - 05/19/2022 6:28 AM EDT OUTCOME EVALUATION NOTE: OUTCOME SUMMARY: Patient AOx4, VSS on RA. Afib on tele. HR controlled w/ PRN metop, given x2. Denies CP, SOB, n/v. See flowsheets for NVC. Dressings to LLE CDI, prevena [place] to groin intact. Voiding to urinal. LBM MANAGER FORENSIC, patient stating he will maybe try the [...] without difficulty to bedside urinal. LBM MANAGER FORENSIC. Up to chair this AM with nursing staff. Worked with PT, tolerated well. Diet changed to regular at 1800.Plan is for cardiac cath on Friday. PLAN MOVING FORWARD: Bleeding precautions Pain management neurovascular checks PT/OT odd job laborer INDIVIDUALIZED FALL PREVENTION INTERVENTIONS: Patient-specific fall [...] onset Afib who presents in transfer from [facility] with acute limb ischemia of the LLE. [...] mL Intravenous BID ??? PHENobarbitaL 0.12 mg/kg/dose ([place]) Oral BID ??? thiamine 100 mg Oral [...] management following Dottie Hill APRN 05/18/2022 Pager: [phone] Brannon Isaacs, PT - 05/18/2022 10:00 AM [...] in this evaluation. Time IN / OUT: 4158-8136 Total Minutes, Physical Therapy: 30 Billing Code: Basilio Isaasc, PT Pager: [phone] Physical Therapy Inpatient Rehabilitation Department Emily Sauceda RN - 05/18/2022 4:34 AM EDT OUTCOME EVALUATION NOTE: OUTCOME SUMMARY: Patient AOx4, VSS on 2LNC. Afib on tele. HR above 120, MD aware, PRN IV metop given x1, HR returned to 90's-low 100's. Denies CP, SOB, n/v. See flowsheets for NVC. Dressings to LLE CDI, prevena W[place] to groin intact. Voiding to urinal. LBM MANAGER FORENSIC. Heparin gtt therapeutic. Pain controlled. Patient sleeping [...] without difficulty to bedside urinal. LBM MANAGER FORENSIC. Patient not OOB this shift. Currently NPO awaitingprocedure in laboratory scientist. PLAN MOVING FORWARD: Bleeding precautions Pain management neurovascular checks PT/OT NPO for laboratory scientist INDIVIDUALIZED FALL PREVENTION INTERVENTIONS: Patient-specific [...] the Emergency Department as a transfer from [facility] with left lower extremity limb ischemia. He went to [facility] and was startedon heparin and transferred to [facility] for evaluation by vascular surgery with subsequent [...] will will be going to the laboratory scientist for evaluation. Will defer PT eval at present but will see as ordered post cardiac catheritizaton. Social Hx:Pt lives with his Ursula in [place], [place] in a 2 level home in [...] WBAT LLE LISBET HERMAN PT Pager # [phone] In-Pt Rehab Medicine Dottie Hill APRN - 05/17/2022 7:42 AM EDT Vascular Surgery Progress Note Koko Zamora is a 81 y.o. male with w new onset Afib who presents in transfer from [facility] with acute limb ischemia of the LLE. [...] mL Intravenous BID ??? PHENobarbitaL 0.24 mg/kg/dose ([place]) Oral BID Followed by ??? [START ON 05/18/2022] PHENobarbitaL 0.12 mg/kg/dose ([place]) Oral BID ??? thiamine 100 mg Oral [...] management following Dottie Hill APRN 05/17/2022 Pager: [phone] Sary Dos Santos, RN - 05/17/2022 12:16 [...] onset Afib who presents in transfer from [facility] with acute limb ischemia of the LLE. [...] mL Intravenous BID ??? PHENobarbitaL 0.48 mg/kg/dose ([place]) Oral BID Followed by ??? [START ON 05/17/2022] PHENobarbitaL 0.24 mg/kg/dose ([place]) Oral BID Followed by ??? [START ON 05/18/2022] PHENobarbitaL 0.12 mg/kg/dose ([place]) Oral BID ??? thiamine 100 mg Oral [...] management following Edward Rodríguez MD 05/16/2022 Pager: [phone] Sary Dos Santos RN - 05/16/2022 12:52 [...] 2129 Hand off to DION Ramirez 3 central square documented in this encounter H&P Notes Kerry [...] onset Afib who presents in transfer from [facility] with acute limb ischemia of the LLE. [...] Refill ??? fluticasone propionate (FLONASE) 50 mcg/actuation [place], Suspension as needed. ??? fluorouraciL (EFUDEX) 5 [...] and consented. Tim Chicas MD 05/15/2022 Pager: [phone] documented in this encounter ED Notes Lc Harris PA - 05/15/2022 1:20 PM EDT ED Provider Note HPI: Koko Zamora is a 81 y.o. male with history of atrial fibrillation not on anticoagulation, and GI bleeding who presents to the Emergency Department as a transfer from [facility] with left lower extremity limb ischemia. Patient says that the symptoms started roughly 630 this morning when he developed severe pain in his left lower extremity. He went to [facility] and was started on heparin and transferred to [facility] for evaluation by vascular surgery. Review of [...] lower extremity earlier today and went to [facility] where it was determined that he had ischemia of the left lower extremity. Vascular surgery [facility] was contacted and he was transferred here [...] orders before pt. Arrival. Pt. Arrived at [facility] by EMS at 1150, vascular [...] in an outpatient cardiac rehabilitation program at [facility] was discussed. Patient agrees to a referral to this program. Timing will depend on his recovery from Vascular surgery. He is going home w/VNA PT. I gave him the brochure for the program at [facility] for future reference. Care Management Discharge - [...] information for follow-up [facility], [place] [address] [place] [address] Transportation: family or friend will provide Functional [...] Type: *No Product type* / Secondary Insurance: [facility] Prescription Coverage: Yes This plan was formulated with input from patient and team. All are in agreement with plan. IP RS has communicated with [place] - for initial IMM. RAlmita (Satish) DION López RN/CM - Cellphone: [phone] Pager: [phone] Covering Service RN/CM Plan of Care - [...] catheterization, transferred in hospital bed accompanied by Mortgage Processing Clerk RN, remains on telemetry monitoring. Heparin gtt [...] Type: *No Product type* / Secondary Insurance: [facility] Last Physical Therapy Recommendation: home with home health, home with supervision with None Last Occupational Therapy Recommendation: with Plan for discharge is: Home w/ Services Outpatient Agency/Support Group Needs: None Home Health Services: Registered Nurse, Physical Therapy, Occupational Therapy Agency Referrals: I have met with the patient to: ?? discuss discharge planning needs. ?? provide the [facility], Office of Care Management letter from the Electrical Apprentice pertaining to rehab referrals. ?? provide a letter describing our affiliations within the [facility] and educate about their right to choose where referrals are sent. ?? provide a list of Home Health Agencies / Durable Medical Equipment vendors which serve their preferred geographic area. ?? provided patient with [facility] Star Quality Rating handout. They have requested referrals to: [facility]. [address] [place] [address] Note routed to a Upper Leather Cutter who will communicate referrals to facilities and provide any required information. Transportation: family or friend will provide Barriers to discharge: None Plan going forward: Patient is going for a cardiac cath today and plan will come from there. Patientwas recently seen by PT and they recommend VNA at time of discharge. [facility] was routed and pendedat this time. Care Management will continue to follow and assist with discharge planning and coordination of care as indicated. Anticipated Date of Discharge: 05/21/2022 Nataly RICHMOND RN Phone: [phone] Pager: [phone] Plan of Care - Laney Atkins RN [...] the original note were not included. Formerly [facility] [place] [address] [address] INPATIENT CARDIOLOGY CONSULT NOTE Date of Consultation: 05/17/2022 Admit Date: 05/15/2022 Hospital Day 2 days Reason for Consult: New afib Active Problems: Active Hospital Problems Diagnosis Limb ischemia Resolved Hospital Problems No resolved problems to display. HPI: Koko Zamora is a 81 y.o. male with a PMHx significant for MVP (s/p MV repair 2000), tobacco use, HLD, who presented to [facility] from OSH on 05/15 with acute limb ischemia of LLE and was found to be in atrial fibrillation. Patient had sudden onset LLE pain on 05/15 and presented to [facility], where he was started on heparin and transferred to [facility]. Upon arrival to [facility], patient was in atrial fib [...] mouth daily. fluticasone propionate (FLONASE) 50 mcg/actuation [place], Suspension as needed. ascorbic acid, vitamin C, [...] 5 mL Intravenous BID PHENobarbitaL 0.24 mg/kg/dose ([place]) Oral BID Followed by [START ON 05/18/2022] PHENobarbitaL 0.12 mg/kg/dose ([place]) Oral BID thiamine 100 mg Oral Daily folic acid 1,000 mcg Oral Daily multivitamin with minerals 1 tablet Oral Daily heparin (porcine) infusion 1,200 Units/hr (05/17/22 6747) Family History: No family history on file. [...] to Hosp-Admission (Current) from 05/15/[address] [place] [address] Office Visit from 04/17/2021 in Pain and Spine Center at [facility] Weight 79.8 kg (175 lb [...] continue to follow Anne-Marie Larson MD Pager [phone] Clinic: [phone] 05/17/22 6:22 PM Initial Assessments - Ifrah [...] spouse would be surrogate decision maker per [place] surrogate decision making law. (Only good for 180 days) Any patient receiving care at [facility] must abide by [place] law. The hierarchy [...] The agent with financial power of insurance defense attorney or a conservator appointed in [...] seat Home Address confirmed as: [facility] [facility] [address] Social & Family Supports: All names listed below confirmed with patient as Incorrect. Will notify conifer to correct. Wifes address is same as and phone is [phone]. Extended Emergency Contact Information Primary Emergency Contact: Demarco Zamorana Address: [facility] [place] [address] [facility] Relation: Spouse Current Care Provided [...] Type: *No Product type* / Secondary Insurance: [facility] Prescription Coverage: Yes Preferred Pharmacy: [id number] - [place], [place] - [address] [facility] [address] [place] [address] [facility] - [place], [place] - [address] [facility] [address] [facility] [address] [place] Status: Patient is a : unable to assess Primary Care Provider: Bobby aDs MD [phone] Patient/Caregiver Goals of Treatment: to walk again Potential Needs for Transition of Care: none noted per 05/16 IDR Transportation: family will provide Transportation Anticipated: family or friend will provide Concerns to be Addressed: no discharge needs identified Assessment: Patient is admitted to vascular surg service for left lower extremity limb ischemia Plan: Per PT OT recommendations . Has used [email or web address] in the past. A member of the Care Management team will continue to monitor progress, follow for continuity of care and assist with transition of care planning. Ifrah Bell RN BSN BracerCarpet Installer of Care Management Pager [phone] Brief Op Note - Erin Garza MD - 05/15/2022 5:04 PM EDT Brief Operative Note Patient Name: Koko Zamora : [id number] MR#: [id number] Case Date: 05/15/2022 Surgeon: Surgeon(s) and Role: [...] Garza MD - 05/15/2022 2:08 PM EDT [facility] Operative Note Patient Name: Koko Zamora : [id number] MR#: [id number] Case Date: 05/15/2022 Surgeon: Surgeon(s) and Role: [...] MD [facility] GASTROENTEROLOGY DEPT [place], [place] [address] (Wo rk) 09/05/2022 Appointment Cardiology Trinity Reid MD [facility] CARDIOLOGY [place], [place] [address] (Wo rk) 09/05/2022 Office Visit Cardiology Trinity Reid MD [facility] CARDIOLOGY [place], [place] [address] (Wo rk) Scheduled Referrals Name [...] Value Ref Test Analysis Performed At [facility] Range Method Time Signature VB Text Department: Vascular Surgery Lab VASCUBASE Report Patient: [id number] (KOKO ZAMORA) CPT: 22378 Referring Physician: FITO SUMMERS ?? Phone: Indications: s/p L DATA REPORTING ANALYST endart. Diabetes mellitus: no Findings: Right [...] EDT) athologist Signature Heparin UFH 0.42 IU/mL Phoebe [...] Organization Address City/State/[place] [address] Differential, Automated (05/21/2022 6:15 AM EDT) athologist Signature Neutrophils % 58.8 % [facility] LABORATORY Neutr Abs (ANC) 3.97 1.70 - [facility] 6.[address] [facility] x10(3)[facility] LABORATORY Lymphocytes % 25.2 % [facility] LABORATORY Lymphocytes Abs 1.7 0.9 - 3.2 [facility] x10(3)/[facility] LABORATORY Monocytes % 12.9 % [facility] LABORATORY Monocyte Abs 0.9 0.3 - 0.9 [facility] x10(3)[facility] LABORATORY Eosinophils % 2.1 % [facility] LABORATORY Eosinophils Abs 0.1 0.0 - 0.4 [facility] x10(3)/[facility] LABORATORY Basophils % 0.4 % [facility] LABORATORY Basophils Abs 0.0 0.0 - 0.1 [facility] x10(3)/[facility] LABORATORY Immature Gran % 0.60 [...] Rain Gran Abs 0.04 0.00 - 0.04 x10(3)/[facility] LABORATORY Specimen Anatomical Collection Method Collection Time Receive d Time (Source) Location / / Volume Laterality Blood 05/21/2022 6:15 AM 2 6:38 EDT AM EDT Resulting Agency Comment Spec In Lab Edward Rodríguez MD HEMATOLOGY ORDERABLES Performing Organization Address City/State/[place] [address] (ABNORMAL) Hemogram (05/21/2022 6:15 AM EDT) [facility] gist Method Time Signature WBC 6.8 4.0 - 9.5 [facility] x[facility](3[facility] LABORATORY RBC 3.59 (L) 4.58 - [facility] X[facility] 5.[address] [facility] x10(6)/[facility] LABORATORY Hemoglobin 11.8 (L) 13.7 - [facility] 16.5 g/dL [facility] LABORATORY Hematocrit 34.5 (L) 40.5 - [facility] 48.5 % [facility] LABORATORY MCV 96.1 (H) 82.9 - [facility] 93.1 [facility] LABORATORY MCH 32.9 (H) 27.5 - [facility] 32.1 pg [facility] LABORATORY MCHC 34.2 32.0 - [facility] 35.7 g/dL [facility] LABORATORY Platelets 198 145 - 357 [facility] x10(3)/[facility] LABORATORY RDWSD 44.9 36.0 - [facility]0 [facility] LABORATORY RDWCV 12.6 11.4 - [facility] 13.8 % [facility] LABORATORY MPV 10.0 7.6 - 12.9 [facility] nRBC % Auto 0.3 % [facility] LABORATORY nRBC Abs Auto 0.020 (H) 0.000 - [facility] X[facility] 0.[address] [facility] x10(3)/[facility] LABORATORY Specimen Anatomical Collection Method Collection Time Receive d Time (Source) Location / / Volume Laterality Blood 05/21/2022 6:15 AM 2 6:38 EDT AM EDT Resulting Agency Comment Spec In Lab Edward Rodríguez MD HEMATOLOGY ORDERABLES Performing Organization Address City/State/[place] [address] EKG 12 Lead (05/20/2022 7:04 PM EDT) Component Value Ref Range Test Analysis Performed Pathologis t Method Time At Signature Ventricular rate 101 BPM MUSE SYSTEM QRS Duration 116 ms MUSE SYSTEM Q-T Interval 378 ms MUSE SYSTEM QTC Calculated 490 ms MUSE SYSTEM (Bezet) Calculated R [place] -53 degrees MUSE SYSTEM Calculated T [place] 101 degrees MUSE SYSTEM INTERPRETATION Atrial fibrillation [...] Laterality Volume Narrative 05/20/2022 7:09 PM EDT ?[facility] ? Cardiac Cathete rization/Intervention Report ? Patient Name: Koko Zamora ? Procedure Date: 05/20/2022 ? A #: [id number] ? Primary Physician: Abundio Servin ? Case #: [id number] ? File Name: [id number] ? Catheterization Order Number: [id number] ? [facility] ? Final Report [place], [place] ? Patient Name: ? Koko J. Klarissa uson ? ID#: ?[id number] ? : ?1940 ? Procedure Date: ? [...] was Urgent. The indication for ?the laboratory scientist visit is cardiomyo nita. Chest pain symptom [...] ?3.5 guiding catheter and a 3.5 [address] [facility] [place] [address] ??20 Mhz. ??Imaging ?was [...] A premounted 2. 75 x 30 mm Jackson Hustisford (AMPARO) was deployed ? with a maximum [...] require ?modification of this regimen. C onsult [facility] Interventional Cardiology for ?questions. ?The [...] note might be different from the original. [facility] Cardiac Catheterization/Intervention Re port Patient Name: Koko Zamora Procedure Date: 05/20/2022 A #: [id number] Primary Physician: Abundio Servin Case #: File Name: [id number] Catheterization Order Number: [id number] [facility] Mortgage Processing Clerk [facility] Final Report [place], [place] Patient Name: Koko Zamora ID#: [id number] : 1940 Procedure Date: May 20, 2022 [...] designated a s ASA Class IV. The [facility] clinical frailty scale is 3: [...] was Urgent. The indication for the laboratory scientist visit is cardiomyopathy. C hest pain symptom [...] 3.5 guiding catheter and a 3.[address] [facility] [address] 20 Mhz. Imaging was successful. Image [...] atmospheres. A premounted 2.75 x 30 mm Jackson Hustisford (AMPARO) was deployed with a maximum inflation [...] modification of this regimen. Consult D [facility] Interventional Cardiology for questions. The [...] - 199 [facility] mg/dL [facility] LABORATORY Comment: Supplemental ranges: <140 mg/dL before meals <180 mg/dL all other times of the day Specimen Anatomical Collection Method Collection Time Receive d Time (Source) Location / / Volume Laterality Blood 05/20/2022 5:42 PM 5:42 EDT PM EDT Fito Summers MD POINT OF CARE TEST ORDERABLE S Performing Organization Address City/State/[place] [address] (ABNORMAL) BMP w/fasting Glucose (05/20/2022 10:50 AM EDT) P athologist Signature Glucose 152 (H) 65 - 99 [facility] Fasting mg/dL [facility] LABORATORY Comment: ?Fasting* Glucose Interpretive C riteria [...] Mellitus, Position Statement from the [place] [employer]. ??Diabete s Care, Volume 33, Supplement 1, Nov 2009 BUN 11 10 - 20 mg/dL [facility] LABORATORY Creatinine 0.63 (L) 0.80 - 1.50 mg/dL [facility] LABORATORY Sodium 137 135 - 145 [...] Organization Address City/State/[place] [address] Heparin (unfractionated) Level (05/20/2022 5:02 AM EDT) athologist Signature Heparin UFH 0.57 IU/mL Phoebe [...] Organization Address City/State/[place] [address] (ABNORMAL) Differential, Automated (05/20/2022 5:02 AM EDT) Patholo gist Method Time Signature Neutrophils % 58.1 % [facility] LABORATORY Neutr Abs (ANC) 4.52 1.70 - [facility] 6.[address] [facility] x10(3)/[facility] LABORATORY Lymphocytes % 24.1 % [facility] LABORATORY Lymphocytes Abs 1.9 0.9 - 3.2 [facility] x10(3)/[facility] LABORATORY Monocytes % 13.8 % [facility] LABORATORY Monocyte Abs 1.1 (H) 0.3 - 0.9 [facility] x10(3)/[facility] LABORATORY Eosinophils % 2.6 % [facility] LABORATORY Eosinophils Abs 0.2 0.0 - 0.4 [facility] x10(3)/[facility] LABORATORY Basophils % 0.8 % [facility] LABORATORY Basophils Abs 0.1 0.0 - 0.1 [facility] x10(3)/[facility] LABORATORY Immature Gran % 0.60 [...] Abs 0.05 (H) 0.00 - 0.04 x10(3)/[facility] LABORATORY Specimen Anatomical Collection Method Collection Time Receive d Time (Source) Location / / Volume Laterality Blood 05/20/2022 5:02 AM 5:19 EDT AM EDT Resulting Agency Comment Spec In Lab Edward Rodríguez MD HEMATOLOGY ORDERABLES Performing Organization Address City/State/[place] [address] (ABNORMAL) Hemogram (05/20/2022 5:02 AM EDT) Analysis Performed At Patho logist Time Signature WBC 7.8 4.0 - 9.5 [facility] x10(3)/[facility] LABORATORY RBC 3.53 (L) 4.58 - [facility] 5.[address] [facility] x10(6)/[facility] LABORATORY Hemoglobin 11.4 (L) 13.7 - [facility] 16.[facility] g/dL [facility] LABORATORY Hematocrit 34.3 (L) 40.5 - [facility] 48.5 % [facility] LABORATORY MCV 97.2 (H) 82.9 - [facility] 93.1 [facility] LABORATORY MCH 32.3 (H) 27.5 - [facility] 32.1 pg [facility] LABORATORY MCHC 33.2 32.0 - [facility] 35.7 g/dL [facility] LABORATORY Platelets 181 145 - 357 [facility] x10(3)/[facility] LABORATORY RDWSD 46.4 (H) 36.0 - [facility] 45.0 [facility] LABORATORY RDWCV 13.0 11.4 - [facility] 13.8 % [facility] LABORATORY MPV 10.4 7.6 - 12.9 [facility] LABORATORY nRBC % Auto 0.0 % [facility] LABORATORY nRBC Abs Auto 0.000 0.000 - [facility] 0.[address] [facility] x10(3)/[facility] LABORATORY Specimen Anatomical Collection Method Collection Time Receive d Time (Source) Location / / Volume Laterality Blood 05/20/2022 5:02 AM 2 5:19 EDT AM EDT Resulting Agency Comment Spec In Lab Edward Rodríguez MD HEMATOLOGY ORDERABLES Performing Organization Address City/State/[place] [address] Heparin (unfractionated) Level (05/19/2022 [...] Address City/State/[place] [address] (ABNORMAL) Differential, Automated (05/19/2022 3:26 AM EDT) Patholo gist Method Time Signature Neutrophils % 62.1 % [facility] LABORATORY Neutr Abs (ANC) 4.59 1.70 - [facility] 6.[address] [facility] x10(3)/[facility] LABORATORY Lymphocytes % 22.1 % [facility] LABORATORY Lymphocytes Abs 1.6 0.9 - 3.2 [facility] x10(3)/[facility] LABORATORY Monocytes % 13.5 % [facility] LABORATORY Monocyte Abs 1.0 (H) 0.3 - 0.9 [facility] x10(3)/[facility] LABORATORY Eosinophils % 1.3 % [facility] LABORATORY Eosinophils Abs 0.1 0.0 - 0.4 [facility] x10(3)/[facility] LABORATORY Basophils % 0.5 % [facility] LABORATORY Basophils Abs 0.0 0.0 - 0.1 [facility] x10(3)/[facility] LABORATORY Immature Gran % 0.50 [...] Rain Gran Abs 0.04 0.00 - 0.04 x10(3)/[facility] LABORATORY Specimen Anatomical Collection Method Collection Time Receive d Time (Source) Location / / Volume Laterality Blood 05/19/2022 3:26 AM 2 3:59 EDT AM EDT Resulting Agency Comment Spec In Lab Edward Rodríguez MD HEMATOLOGY ORDERABLES Performing Organization Address City/State/[place] [address] (ABNORMAL) Hemogram (05/19/2022 3:26 AM EDT) Analysis Performed At Patho logist Time Signature WBC 7.4 4.0 - 9.5 [facility] x10(3)/[facility] LABORATORY RBC 3.74 (L) 4.58 - [facility] 5.[address] [facility] x10(6)/[facility] LABORATORY Hemoglobin 12.1 (L) 13.7 - [facility] 16.5 g/dL [facility] LABORATORY Hematocrit 36.4 (L) 40.5 - [facility] [place] 48.5 % [facility] LABORATORY MCV 97.3 (H) 82.9 - [facility] 93.1 [facility] LABORATORY MCH 32.4 (H) 27.5 - [facility] 32.1 pg [facility] LABORATORY MCHC 33.2 32.0 - [facility] [place] 35.7 g/dL [facility] LABORATORY Platelets 168 145 - 357 [facility] x10(3)/[facility] LABORATORY RDWSD 46.9 (H) 36.0 - [facility] 45.0 [facility] LABORATORY RDWCV 13.0 11.4 - [facility] 13.8 % [facility] LABORATORY MPV 10.5 7.6 - 12.9 [facility] LABORATORY nRBC % Auto 0.0 % [facility] LABORATORY nRBC Abs Auto 0.000 0.000 - [facility].[address] [facility] x10(3)/[facility] LABORATORY Specimen Anatomical Collection Method Collection Time Receive d Time (Source) Location / / Volume Laterality Blood 05/19/2022 3:26 AM 2 3:59 EDT AM EDT Resulting Agency Comment Spec In Lab Edward Rodríguez MD HEMATOLOGY ORDERABLES Performing Organization Address City/State/[place] [address] TSH (05/18/2022 8:00 PM EDT) P athologist Signature TSH 2.27 0.27 - 4.20 [facility] HAGEN mcIU/mL [facility] LABORATORY Comment: Reference Interval (mcIU/mL): Females: ??First Trimester: 0.23-3.88 ??Second Trimester: 0.22-3.90 ??Third Trimester: 0.44-4.66 Specimen Anatomical Collection Method Collection Time Receive d Time (Source) Location / / Volume Laterality Blood 05/18/2022 8:00 PM 2 8:06 EDT PM EDT Resulting Agency Comment Spec In Lab Fito Summers MD CHEMISTRY ORDERABLES Performing Organization Address City/State/ZIP Code Phon e Number [address] (ABNORMAL) Differential, Automated (05/18/2022 3:34 AM EDT) [facility] Method Time Signature Neutrophils % 67.2 % [facility] LABORATORY Neutr Abs (ANC) 5.89 1.70 - [facility] 6.[address] [facility] x10(3)/[facility] LABORATORY Lymphocytes % 17.1 % [facility] LABORATORY Lymphocytes Abs 1.5 0.9 - 3.2 [facility] x10(3)/[facility] LABORATORY Monocytes % 13.6 % [facility] LABORATORY Monocyte Abs 1.2 (H) 0.3 - 0.9 [facility] x10(3)/[facility] LABORATORY Eosinophils % 1.0 % [facility] LABORATORY Eosinophils Abs 0.1 0.0 - 0.4 [facility] x10(3)/[facility] LABORATORY Basophils % 0.6 % [facility] LABORATORY Basophils Abs 0.0 0.0 - 0.1 [facility] x10(3)/[facility] LABORATORY Immature Gran % 0.50 [...] Rain Gran Abs 0.04 0.00 - 0.04 x10(3)/[facility] LABORATORY Specimen Anatomical Collection Method Collection Time Receive d Time (Source) Location / / Volume Laterality Blood 05/18/2022 3:34 AM 3:48 EDT AM EDT Resulting Agency Comment Spec In Lab Edward Rodríguez MD HEMATOLOGY ORDERABLES Performing Organization Address City/[facility]/ZIP Code Phon e Number [address] (ABNORMAL) Hemogram (05/18/2022 3:34 AM EDT) Analysis Performed At Patho logist Time Signature WBC 8.8 4.0 - 9.5 [facility] x10(3)/[facility] LABORATORY RBC 3.45 (L) 4.58 - [facility] 5.[address] [facility] x10(6)/[facility] LABORATORY Hemoglobin 11.2 (L) 13.7 - [facility] 16.[facility] g/dL [facility] LABORATORY Hematocrit 33.0 (L) 40.5 - [facility] 48.5 % [facility] LABORATORY MCV 95.7 (H) 82.9 - [facility] 93.1 [facility] LABORATORY MCH 32.5 (H) 27.5 - [facility] 32.1 pg [facility] LABORATORY MCHC 33.9 32.0 - [facility] 35.7 g/dL [facility] LABORATORY Platelets 130 (L) 145 - 357 [facility] x10(3)/[facility] LABORATORY RDWSD 46.2 (H) 36.0 - [facility] 45.0 [facility] LABORATORY RDWCV 13.2 11.4 - [facility] 13.8 % [facility] LABORATORY MPV 10.8 7.6 - 12.9 [facility] LABORATORY nRBC % Auto 0.0 % [facility] LABORATORY nRBC Abs Auto 0.000 0.000 - [facility] 0.[address] [facility] x10(3)/[facility] LABORATORY Specimen Anatomical Collection Method Collection Time Receive d Time (Source) Location / / Volume Laterality Blood 05/18/2022 3:34 AM 3:48 EDT AM EDT Resulting Agency Comment Spec In Lab Edward Rodríguez MD HEMATOLOGY ORDERABLES Performing Organization Address City/State/[place] [address] Heparin (unfractionated) Level (05/18/2022 [...] Summers MD HEMATOLOGY ORDERABLES Performing Organization Address City/[facility]/[place] [address] Magnesium (05/17/2022 3:33 AM EDT) athologist Signature Magnesium 0.76 0.69 - 1.07 [facility] mmol/L [facility] LABORATORY Specimen Anatomical Collection Method Collection Time Receive d Time (Source) Location / / Volume Laterality Blood Venous Draw / 05/17/2022 3:33 AM 05/17/20 4:05 Unknown EDT AM EDT Resulting Agency Comment Spec In Lab Dottie Hill APRN CHEMISTRY ORDERABLES Performing Organization Address City/[facility]/[place] [address] (ABNORMAL) Basic Metabolic Panel (non-fasting) (05/17/2022 3:33 AM EDT) athologist Signature Glucose Lvl 158 65 - 199 [facility] mg/dL [facility] LABORATORY Comment: Diabetes: >=200 mg/dL plus symp toms BUN 12 10 - 20 mg/dL [facility] LABORATORY Creatinine 0.74 (L) 0.80 - 1.50 mg/dL [facility] LABORATORY Sodium 137 135 - 145 [...] Organization Address City/State/[place] [address] (ABNORMAL) Differential, Automated (05/17/2022 3:33 AM EDT) [facility] gist Method Time Signature Neutrophils % 65.5 % [facility] LABORATORY Neutr Abs (ANC) 6.84 (H) 1.70 - [facility] 6.[address] [facility] x10(3)/[facility] LABORATORY Lymphocytes % 19.7 % [facility] LABORATORY Lymphocytes Abs 2.1 0.9 - 3.2 [facility] x10(3)/[facility] LABORATORY Monocytes % 13.1 % [facility] LABORATORY Monocyte Abs 1.4 (H) 0.3 - 0.9 [facility] x10(3)/[facility] LABORATORY Eosinophils % 0.6 % [facility] LABORATORY Eosinophils Abs 0.1 0.0 - 0.4 [facility] x10(3)/[facility] LABORATORY Basophils % 0.6 % [facility] LABORATORY Basophils Abs 0.1 0.0 - 0.1 [facility] x10(3)/[facility] LABORATORY Immature Gran % 0.50 % [facility] [...] Abs 0.05 (H) 0.00 - 0.04 x10(3)/[facility] LABORATORY Specimen Anatomical Collection Method Collection Time Receive d Time (Source) Location / / Volume Laterality Blood 05/17/2022 3:33 AM 3:53 EDT AM EDT Resulting Agency Comment Spec In Lab Edward Rodríguez MD HEMATOLOGY ORDERABLES Performing Organization Address City/State/[place] [address] (ABNORMAL) Hemogram (05/17/2022 3:33 AM EDT) Analysis Performed At Patho logist Time Signature WBC 10.4 (H) 4.0 - 9.5 [facility] x10(3)/[facility] LABORATORY RBC 3.72 (L) 4.58 - [facility] 5.[address] [facility] x10(6)/[facility] LABORATORY Hemoglobin 12.0 (L) 13.7 - [facility] 16.5 g/dL [facility] LABORATORY Hematocrit 36.4 (L) 40.5 - [facility] 48.5 % [facility] LABORATORY MCV 97.8 (H) 82.9 - [facility] 93.1 [facility] LABORATORY MCH 32.3 (H) 27.5 - [facility] 32.1 pg [facility] LABORATORY MCHC 33.0 32.0 - [facility] 35.7 g/dL [facility] LABORATORY Platelets 149 145 - 357 [facility] x10(3)/[facility] LABORATORY RDWSD 48.7 (H) 36.0 - [facility] 45.0 [facility] LABORATORY RDWCV 13.5 11.4 - [facility] 13.8 % [facility] LABORATORY MPV 10.6 7.6 - 12.9 [facility] LABORATORY nRBC % Auto 0.0 % [facility] LABORATORY nRBC Abs Auto 0.000 0.000 - [facility] 0.[address] [facility] x10(3)/[facility] LABORATORY Specimen Anatomical Collection Method Collection Time Receive d Time (Source) Location / / Volume Laterality Blood 05/17/2022 3:33 AM 3:53 EDT AM EDT Resulting Agency Comment Spec In Lab Edward Rodríguez MD HEMATOLOGY ORDERABLES Performing Organization Address City/[facility]/[place] [address] (ABNORMAL) Urinalysis Microscopic Exam [...] Organization Address City/State/ZIP Code Phon [place] [address] (ABNORMAL) Urinalysis with reflex Culture (05/16/2022 11:15 PM EDT) Patholo gist Method Time Signature Glucose UA Negative Negative [facility] mg/dL [facility] LABORATORY Protein UA Negative Negative [facility] mg/dL [facility] LABORATORY Bilirubin UA Negative Negative [facility] mg/dL [facility] LABORATORY Comment: Clinical correlation required for positi [...] [facility] LABORATORY Leukocytes UA Negative Negative [facility] LABORATORY Appearance UA Clear Clear [facility] LABORATORY Spec [place] UA 1.021 1.005 - 1.030 [facility] LABORATORY Color UA Yellow Yellow [facility] LABORATORY Culture Reflexed No [facility] LABORATORY Specimen Anatomical Collection Method Collection Time Receive d Time (Source) Location / / Volume Laterality Clean Catch 05/16/2022 11:15 05/16/2022 Urine PM EDT 11:30 PM EDT Resulting Agency Comment Spec In Lab Fito Summers MD URINE ORDERABLES Performing Organization Address City/State/[place] [address] Heparin (unfractionated) Level (05/16/2022 [...] Organization Address City/State/ZIP Code Phon e Number [place] [id number] LAB[address] XR Chest One View [...] have questions please contact the health career guidance counselor that requested your imaging first. ? Narrative [...] have questions please contact the health career guidance counselor that requested your imaging first. Fito Summers MD IMG DX ORDERABLES EKG 12 Lead (05/16/2022 8:57 PM EDT) Component Value Ref Range Test Analysis Performed Pathologis t Method Time At Signature Ventricular rate 117 BPM MUSE SYSTEM QRS Duration 112 ms MUSE SYSTEM Q-T Interval 346 ms MUSE SYSTEM QTC Calculated 482 ms MUSE SYSTEM (Bezet) Calculated R [place] -48 degrees MUSE SYSTEM Calculated T [place] 111 degrees MUSE SYSTEM INTERPRETATION Atrial fibrillation [...] Summers MD ECG ORDERABLES Performing Organization Address City/[facility]/ZIP Code Phon e Number MUSE SYSTEM Heparin [...] Summers MD HEMATOLOGY ORDERABLES Performing Organization Address City/[facility]/[place] [address] ECHOCARDIOGRAM COMPLETE W CONTRAST (05/16/2022 12:49 PM EDT) P athologist Signature EF 28 [facility] Anatomical Region Laterality Modality Cardiac Other Specimen (Source) Anatomical Collection Method Collection Time Re ceived Time Location / / Volume Laterality 05/16/2022 11:22 AM EDT Narrative 05/16/2022 1:54 PM EDT ?[facility] ? [facility] ?[address] ? [place] [address] ?Voice: ?Fax: ? Echocardiogram Report Name: KOKO ZAMORA ?Study Date: 05/16/2022 11:22 AM ? Patient Location: 3T 0303 B : 1940 ? Height: 67.5 in ? Account: [id number] Age: 81 yrs ? Weight: 176 lb [...] and LV systolic dysfunction are new. Procedure Complete-[id number]. Image enhancement Optiso n was used for [...] note might [place] [address] Voice: Fax: Echocardiogram Report Name: KOKO ZAMORA Study Date: 05/2022 11:22 AM Patient Location: [address] [place] [address] : 1940 Height: 67.5 in Account: [id number] Age: 81 yrs Weight: 176 lb Gender: [...] and LV systolic dysfunction are new. Procedure Complete-[id number]. Image enhancement Optiso n was used for [...] (ABNORMAL) Differential, Automated (05/16/2022 3:01 AM EDT) [facility] Method Time Signature Neutrophils % 78.8 % [facility] LABORATORY Neutr Abs (ANC) 9.11 (H) 1.70 - [facility] 6.[address] [facility] x10(3)/[facility] LABORATORY Lymphocytes % 9.4 % [facility] LABOR[facility]ORY Lymphocytes Abs 1.1 0.9 - 3.2 [facility] x10(3)/[facility] LABORATORY Monocytes % 10.9 % [facility] LABORATORY Monocyte Abs 1.3 (H) 0.3 - 0.9 [facility] x10(3)/[facility] LABORATORY Eosinophils % 0.0 % [facility] LABORATORY Eosinophils Abs 0.0 0.0 - 0.4 [facility] x10(3)/[facility] LABORATORY Basophils % 0.3 % [facility] LABORATORY Basophils Abs 0.0 0.0 - 0.1 [facility] x10(3)/[facility] LABORATORY Immature Gran % 0.60 % [place] [...] Abs 0.07 (H) 0.00 - 0.04 x10(3)/[facility] LABORATORY Specimen Anatomical Collection Method Collection Time Receive d Time (Source) Location / / Volume Laterality Blood 05/16/2022 3:01 AM 3:36 EDT AM EDT Resulting Agency Comment Spec In Lab Erin Garza MD HEMATOLOGY ORDERABLES Performing Organization Address City/State/ZIP Code Phon e Number [place] [phone] HOSPITAL LABORATORY Drive (ABNORMAL) Hemogram (05/16/2022 3:01 AM EDT) Analysis Performed At Patho logist Time Signature WBC 11.6 (H) 4.0 - 9.5 [facility] x10(3)/[facility] LABORATORY RBC 3.62 (L) 4.58 - [facility] [address] [facility] x10(6)/[facility] LABORATORY Hemoglobin 12.0 (L) 13.7 - [facility] 16.5 g/dL [facility] Hematocrit 35.3 (L) 40.5 - [facility] 48.5 % [facility] LABORATORY MCV 97.5 (H) 82.9 - [facility] 93.1 [facility] LABORATORY MCH 33.1 (H) 27.5 - [facility] 32.1 pg [facility] LABORATORY MCHC 34.0 32.0 - [facility] 35.7 g/dL [facility] LABORATORY Platelets 151 145 - 357 [facility] x10(3)/[facility] RDWSD 47.6 (H) 36.0 - [facility] 45.0 [facility] RDWCV 13.3 11.4 - [facility] 13.8 % [facility] LABORATORY MPV 10.5 7.6 - 12.9 [facility] LABORATORY nRBC % Auto 0.0 % [facility] LABORATORY nRBC Abs Auto 0.000 0.000 - [facility] 0.[address] [facility] x10(3)/[facility] LABORATORY Specimen Anatomical Collection Method Collection Time Receive d Time (Source) Location / / Volume Laterality Blood 05/16/2022 3:01 AM 2 3:36 EDT AM EDT Resulting Agency Comment Spec In Lab Erin aGrza MD HEMATOLOGY ORDERABLES Performing Organization Address City/State/ZIP Code Phon e Number [address] Phosphorus (05/16/2022 3:01 AM EDT) P athologist Signature Phosphorus 3.7 2.5 - 4.5 [facility] mg/dL [facility] LABORATORY Specimen Anatomical Collection Method Collection Time Receive d Time (Source) Location / / Volume Laterality Blood 05/16/2022 3:01 AM 2 3:36 EDT AM EDT Resulting Agency Comment Spec In Lab Fito Summers MD CHEMISTRY ORDERABLES Performing Organization Address City/State/ZIP Code Phon e Number [address] Magnesium (05/16/2022 3:01 AM EDT) P athologist Signature Magnesium 0.77 0.69 - 1.07 [facility] mmol/L [facility] LABORATORY Specimen Anatomical Collection Method Collection Time Receive d Time (Source) Location / / Volume Laterality Blood 05/16/2022 3:01 AM 2 3:36 EDT AM EDT Resulting Agency Comment Spec In Lab Fito Summers MD CHEMISTRY ORDERABLES Performing Organization Address City/[facility]/ZIP Code Phon e Number [address] (ABNORMAL) Basic Metabolic Panel (non-fasting) (05/16/2022 3:01 AM EDT) P athologist Signature Glucose Lvl 222 (H) 65 - 199 [facility] mg/dL [facility] LABORATORY Comment: Diabetes: >=200 mg/dL plus symp toms BUN 12 10 - 20 mg/dL [facility] LABORATORY Creatinine 0.66 (L) 0.80 - 1.50 mg/dL [facility] LABORATORY Sodium 138 135 - 145 [...] Organization Address City/State/[place] [address] (ABNORMAL) BLOOD GAS 2 ARTERIAL (05/15/2022 3:33 PM EDT) Analysis Performed At Patho logist Time Signature pH Art 7.33 (L) 7.35 - [facility] 7.45 [facility] LABORATORY pCO2 Art 41 35 - 45 [facility] mmHg [facility] LABORATORY pO2 Art 131 (H) 85 - 104 [facility] LABORATORY HCO3 Art 21.1 20.0 - [facility] 26.[address] [facility] mmol/L [facility] LABORATORY BE Art -4.8 (L) -3.0 - 3.0 [facility] mmol/L [facility] LABORATORY Hgb Blood Gas 13.4 (L) 13.7 - [facility] 16.5 g/dL [facility] O2HB Art 96.9 94.0 - [facility] 97.0 % [facility] LABORATORY COHB Art 1.4 % [facility] [...] Whole Bld 136 65 - 199 mg/dL [facility] LABORATORY Comment: Diabetes: >=200 mg/dL plus symp toms. Lactate WB 2.0 0.5 - 2.2 mmol/L [facility] LABORATORY Specimen Anatomical Collection Method Collection Time Receive d Time (Source) Location / / Volume Laterality Blood 05/15/2022 3:33 PM 2 3:[address] Jamel Torre MD CHEMISTRY ORDERABLES Performing Organization Address City/State/[place] [address] (ABNORMAL) BLOOD GAS 2 ARTERIAL (05/15/2022 2:06 PM EDT) Analysis Performed At Patho logist Time Signature pH Art 7.39 7.35 - [facility] 7.45 [facility] LABORATORY pCO2 Art 35 35 - 45 [facility] mmHg [facility] LABORATORY pO2 Art 135 (H) 85 - 104 [facility] LABORATORY HCO3 Art 20.8 20.0 - [facility] 26.[address] [facility] mmol/L [facility] LABORATORY BE Art -4.2 (L) -3.0 - 3.0 [facility] mmol/L [facility] LABORATORY Hgb Blood Gas 14.5 13.7 - [facility] 16.5 g/dL [facility] O2HB Art 97.2 (H) 94.0 - [facility] 97.0 % [facility] LABORATORY COHB Art 1.2 % [facility] [...] Whole Bld 152 65 - 199 mg/dL [facility] LABORATORY Comment: Diabetes: >=200 mg/dL plus symp toms. Lactate WB 1.5 0.5 - 2.2 mmol/L [facility] LABORATORY Specimen Anatomical Collection Method Collection Time Receive d Time (Source) Location / / Volume Laterality Blood 05/15/2022 2:06 PM 2 2:[address] Jamel Torre MD CHEMISTRY ORDERABLES Performing Organization Address City/[facility]/[place] [address] (ABNORMAL) Prothrombin Time (05/15/2022 12:30 PM EDT) P athologist Signature PT 12.9 (H) 9.4 - 12.5 [facility] LABORATORY INR 1.1 [facility] [...] Morales DO HEMATOLOGY ORDERABLES Performing Organization Address City/[facility]/ZIP [facility] [place] [address] (ABNORMAL) APTT (05/15/2022 12:30 [...] Address City/State/[place] [address] Gold Tube HOLD (05/15/2022 12:20 PM EDT) P athologist Signature Gold Hold Sample in [facility]. [facility] LABORATORY Specimen Anatomical Collection Method Collection Time Receive d Time (Source) Location / / Volume Laterality Blood No Charge / 05/15/2022 12:20 05/15/2022 Unknown PM EDT 12:20 PM EDT Lc Tan Kimberly TRIPP CHEMISTRY ORDERABLES Performing Organization Address City/[facility]/[place] [address] Type and Screen Validity (05/15/2022 12:00 PM EDT) [facility] gist Method Time Signature T&S only valid [facility] LABORATORY Comment: This Type and Screen result is only valid at the [facility] Hospital Specimen Anatomical Collection Method Collection Time Receive d Time (Source) Location / / Volume Laterality Blood 05/15/2022 12:00 05/15/2022 PM EDT 12:17 PM EDT Resulting Agency Comment Spec In Lab Lc Harris PA BLOOD BANK ORDERABLES Performing Organization Address City/[facility]/ZIP Code Phon e Number [address] ABORH Recheck Status (05/15/2022 12:00 PM EDT) [facility] gist Method Time Signature ABORH Recheck Order Placed [facility] K Order [facility] LABORATORY ABORH Type Complete [facility] LABORATORY Specimen Anatomical Collection Method Collection Time Receive d Time (Source) Location / / Volume Laterality Blood 05/15/2022 12:00 05/15/2022 PM EDT 12:17 PM EDT Resulting Agency Comment Spec In Lab Lc Tan Kimberly PA BLOOD BANK ORDERABLES Performing Organization Address City/State/[place] [address] CK (05/15/2022 12:00 PM EDT) P athologist Signature CK, Total 87 0 - 200 [facility] unit/L [facility] LABORATORY Specimen Anatomical Collection Method Collection Time Receive d Time (Source) Location / / Volume Laterality Blood Venous Draw / 05/15/2022 12:00 05/15/2022 Unknown PM EDT 12:19 PM EDT Resulting Agency Comment Spec In Lab Fito Summers MD CHEMISTRY ORDERABLES Performing Organization Address City/State/[place] [address] Antibody screen (05/15/2022 12:00 PM EDT) [facility] Method Time Signature Ab Screen Negative [facility] LABORATORY Expires at 05/18/2022 [facility] 2359 on: [facility] LABORATORY Specimen Anatomical Collection Method Collection Time Receive d Time (Source) Location / / Volume Laterality Blood 05/15/2022 12:00 05/15/2022 PM EDT 12:17 PM EDT Resulting Agency Comment Spec In Lab Lc TRIPP BLOOD BANK ORDERABLES Performing Organization Address City/[facility]/ZIP Code Phon e Number [address] ABO/Rh Typing (05/15/2022 12:00 PM EDT) athologist Signature ABORh Type O Pos [facility] LABORATORY Specimen Anatomical Collection Method Collection Time Receive d Time (Source) Location / / Volume Laterality Blood 05/15/2022 12:00 05/15/2022 PM EDT 12:17 PM EDT Resulting Agency Comment Spec In Lab Lc TRIPP BLOOD BANK ORDERABLES Performing Organization Address City/[facility]/[place] [address] (ABNORMAL) Differential, Automated (05/15/2022 12:00 PM EDT) [facility] Method Time Signature Neutrophils % 79.4 % [facility] LABORATORY Neutr Abs (ANC) 7.49 (H) 1.70 - [facility] 6.[address] [facility] x10(3)/[facility] L LABORATORY Lymphocytes % 11.3 % [facility] LABORATORY Lymphocytes Abs 1.1 0.9 - 3.2 [facility] x10(3)/[facility] LABORATORY Monocytes % 7.8 % [facility] LABORATORY Monocyte Abs 0.7 0.3 - 0.9 [facility] x10(3)/[facility] LABORATORY Eosinophils % 0.6 % [facility] LABORATORY Eosinophils Abs 0.1 0.0 - 0.4 [facility] x10(3)/[facility] LABORATORY Basophils % 0.6 % [facility] LABORATORY Basophils Abs 0.1 0.0 - 0.1 [facility] x10(3)/[facility] LABORATORY Immature Gran % 0.30 % [facility] [...] Rain Gran Abs 0.03 0.00 - 0.04 x10(3)/[facility] LABORATORY Specimen Anatomical Collection Method Collection Time Receive d Time (Source) Location / / Volume Laterality Blood 05/15/2022 12:00 05/15/2022 PM EDT 12:19 PM EDT Resulting Agency Comment Spec In Lab Lc TRIPP HEMATOLOGY ORDERABLES Performing Organization Address City/State/[place] [address] (ABNORMAL) Hemogram (05/15/2022 12:00 PM EDT) Analysis Performed At Patho logist Time Signature WBC 9.4 4.0 - 9.5 [facility] x10(3)/[facility] LABORATORY RBC 4.48 (L) 4.58 - [facility] 5.[address] [facility] x10(6)/[facility] LABORATORY Hemoglobin 14.5 13.7 - [facility] 16.5 g/dL [facility] LABORATORY Hematocrit 42.4 40.5 - [facility] 48.5 % [facility] LABORATORY MCV 94.6 (H) 82.9 - [facility] 93.1 [facility] LABORATORY MCH 32.4 (H) 27.5 - [facility] 32.1 pg [facility] LABORATORY MCHC 34.2 32.0 - [facility] 35.7 g/dL [facility] LABORATORY Platelets 209 145 - 357 [facility] x10(3)/[facility] LABORATORY RDWSD 45.9 (H) 36.0 - [facility] 45.0 [facility] LABORATORY RDWCV 13.1 11.4 - [facility] 13.8 % [facility] LABORATORY MPV 10.5 7.6 - 12.9 [facility] LABORATORY nRBC % Auto 0.0 % [facility] LABORATORY nRBC Abs Auto 0.000 0.000 - [facility] 0.[address] [facility] x10(3)/[facility] LABORATORY Specimen Anatomical Collection Method Collection Time Receive d Time (Source) Location / / Volume Laterality Blood 05/15/2022 12:00 05/15/2022 PM EDT 12:19 PM EDT Resulting Agency Comment Spec In Lab Lc TRIPP HEMATOLOGY ORDERABLES Performing Organization Address City/State/[place] [address] (ABNORMAL) Basic Metabolic Panel (non-fasting) (05/15/2022 12:00 PM EDT) P athologist Signature Glucose Lvl 203 (H) 65 - 199 [facility] mg/dL [facility] LABORATORY Comment: Diabetes: >=200 mg/dL plus symp toms BUN 16 10 - 20 mg/dL [facility] LABORATORY Creatinine 0.84 0.80 - 1.50 mg/dL [facility] [...] Organization Address City/State/[place] [address] documented in this encounter [...] mg = 1.8 mg/kg/dose ? 67.7 kg [place] weight), Intravenous, at 11.3 mL/hr, EVERY 3 [...] mg = 2.4 mg/kg/dose ? 67.7 kg [place] weight), Intravenous, at 15 mL/hr, ONCE, 1 [...] mg = 0.24 mg/kg/dose ? 67.7 kg [place] weight), Oral, 2 TIMES DAILY, 2 doses, [...] mg = 0.48 mg/kg/dose ? 67.7 kg [place] weight), Oral, 2 TIMES DAILY, 2 doses, [...] mg = 0.12 mg/kg/dose ? 67.7 kg [place] weight), Oral, 2 TIMES DAILY, 2 doses, First dose on [facility] 05/18/22 at 0900, Last dose on [facility] 05/18/22 at 2100, Hold for [...] mg (CANCEL ED) 0838 (Given - Provider: Caorline Zamora RN)2008 (Given - Provider: Nuris Lester [...] mg 0838 (Given - Prov ider: Caroline Zmaora RN) 0853 (Given - Provider: Barbie Joyce [...] (Given - Provider: Barbie Joyce RN)1750 ([facility] Hold - Provider: Admin Adt - Reason: Transfer to a Procedural area)1955 ([facility] Unhold - Provider: Admin Adt)2005 [...] (pf) (Versed) (1 mg/mL) multi-dose injection ([facility] ELED) 1713 (Given - Provider: Abundio [...]
Routine documented in this encounter Care Teams Snack Steward Relationship Specialty Start Date End Date Bobby Das MD PCP - General 10/02/[address] [place] [address] [place] [phone] documented as of this encounter
--- OUTSIDE RECORDS SUMMARY | 2022-07-26 10:54 | XMS_ITS | Encounter Summary ---
:1940 Author Organization [facility] [place] [address] Care Team Providers Name Role Phone Bobby Das MD Primary Care Provider Encounter Details Date Type Department Care Team Description 07/26/2015 External Results Medical Records Provider, Scanning [facility] [place] [phone] Social History Tobacco Use Types Packs/Day Years Used Date Current Some Day Smoker 1 50 Smokeless Tobacco: Never Used Sex Assigned at Date Recorded Not on file documented as of this encounter Plan of Treatment Upcoming Encounters Date Type Specialty Care Team Description 08/08/2022 Office Visit Gastroenterology Negra Collins MD [facility] GASTROENTEROLOGY DEPT [place], [place] [address] (Wo rk) 09/05/2022 Appointment Cardiology Trinity Reid MD [facility] CARDIOLOGY [place], [place] [address] (Wo rk) 09/05/2022 Office Visit Cardiology Trinity Reid MD [facility] CARDIOLOGY [place], [place] [address] (Wo rk) documented as of [...] on filedocumented in this encounter Care Teams Bridal Service Sales And Management Relationship Specialty Start Date End Date Bobby Das MD PCP - General 10/02/[address] [place] [address] [place] [phone] documented as of this encounter
--- OUTSIDE RECORDS SUMMARY | 2022-07-26 10:54 | XMS_ITS | Encounter Summary ---
:1940 [place] [address] Care Team Providers Name Role Phone Bobby Das MD Primary Care Provider Encounter Details Date Type Department Care Team Description 08/25/2015 Telephone Dermatology at [facility] Gloria Ferrell MD [address] [facility] [place] [phone] [facility] [phone] [place], [place] [address] (Wo rk) Social History Tobacco [...] [facility] DR GASTROENTEROLOGY DEPT [place], [place] [address] (Wo rk) 09/05/2022 Appointment Cardiology Trinity Reid MD [facility] CARDIOLOGY [place], [place] [address] (Wo rk) 09/05/2022 Office Visit Cardiology Trinity Reid MD [facility] CARDIOLOGY [place], [place] [address] (Wo rk) documented as of this encounter Visit Diagnoses Not on filedocumented in this encounter Care Teams Greige Goods Inspector Relationship Specialty Start Date End Date Bobby Das MD PCP - General 10/02/[address] [place] [address] [place] [phone] documented as of this encounter
--- OUTSIDE RECORDS SUMMARY | 2022-07-26 10:54 | XMS_ITS | Encounter Summary ---
:1940 Author Organization [facility] [place] [address] Care Team Providers Name Role Phone Bobby Das MD Primary Care Provider Reason for Referral Consultation (Routine) - Closed Specialty Diagnoses / Procedures Referred By Contact Refer red To Contact Neurology Diagnoses Low back pain, non-specific Status post vertebroplasty Transient left leg weakness EMG Arpita Whitney APRN [facility] Neurology [address] [place], [place] [id number] [place] [phone] Fax: Referral ID Status Reason Start Date Expiration Date Visits V isits Requested Authorized [id number] Closed Consult, 04/17/2021 04/17/2022 1 1 Test & Treat hysical Therapy (Routine) - Specialty Diagnoses / Procedures Referred By Contact Refer red To Contact Diagnoses Low back pain, non-specific Status post vertebroplasty [place] [address] Referral ID Status Reason Start Date Expiration Date Visits V isits Requested Authorized [id number] Evaluate and 04/17/2021 10/14/2021 12 12 Treat Reason for Visit Reason Comments Back Pain new patient visit Consultation (Routine) - Closed Specialty Diagnoses / Procedures Referred By Contact Refer red To Contact [facility] Sp[facility] Center Diagnoses Low back pain Pain - Low back pain/ MRI 02/20/21 & XR 01/31/21 @ [facility] Bobby Das MD [facility] Ctr Pain And [address] [place], [place] [phone] [place] [address] Phone: Fax: Referral ID Status Reason Start Date Expiration Date Visits Requ ested Visits Authorized [id number] Closed 03/07/2021 03/07/2022 1 1 Encounter Details Date Type Department Care Team Description 04/17/2021 Office Visit Pain [facility] Sp[facility] Center Arpita Whitney Lo w back pain, non-specific; at [facility] FUNDING ANALYST Status post vertebroplasty; [facility] Tra nsient left leg weakness [place] [phone] Social History Tobacco [...] documented in this encounter Progress Notes Arpita hWitney APRN - 04/17/2021 2:30 PM EDT Images from the original note were not included. [facility] Date [...] here for today. Had lumbar imaging and [facility] as ordered by PCP with [...] standing limited due to back pain [facility] Prescription Monitoring Program was checked. The number of prescriptions reported was 0. Current Medications: Outpatient Medications Marked as Taking for the 04/17/21 encounter (Office Visit) with Arpita Whitney APRN Medication Sig Dispense Refill ??? fluticasone propionate (FLONASE) 50 mcg/actuation [place], Suspension as needed. ??? fluorouraciL (EFUDEX) 5 [...] Chisholm MD [facility] INTERVENTIONL RAD Review of Systems: ROS: [...] y.o. year-old male who presents to the [facility] for Pain and Spine clinic, [...] Mr. Koko Zamora's care. Arpita Whitney, MSN, PASSENGER SERVICE MANAGER- C, FUNDING ANALYST Nurse Practitioner [facility] [place] [phone] / [facility] documented in this encounter Plan of Treatment Upcoming Encounters Date Type Specialty Care Team Description 08/08/2022 Office Visit Gastroenterology Negra Collins MD [facility] GASTROENTEROLOGY DEPT [place], [place] [address] (Wo rk) 09/05/2022 Appointment Cardiology Trinity Reid MD [facility] CARDIOLOGY [place], [place] [address] (Wo rk) 09/05/2022 Office Visit Cardiology Trinity Reid MD [facility] CARDIOLOGY [place], [place] [address] (Wo rk) Scheduled Referrals [...] limbs documented in this encounter Care Teams Skin Care Specialist Relationship Specialty Start Date End Date Bobby Das MD PCP - General 10/02/[address] [place] [address] [place] [phone] documented as of this encounter
--- OUTSIDE RECORDS SUMMARY | 2022-07-26 10:54 | XMS_ITS | Encounter Summary ---
:1940 Author Organization [facility] [place] [address] Care Team Providers Name Role Phone Bobby Das MD Primary Care Provider Encounter Details Date Type Department Care Team Description 08/28/2020 Ancillary Procedure Radiology at [facility] Amy Grimaldo [address] [place] [address] [address] [phone] NEUROSURGERY-N [place], [place] [address] Social History Tobacco Use Types [...] MD [facility] GASTROENTEROLOGY DEPT [place], [place] [address] (Wo rk) 09/05/2022 Appointment Cardiology Trinity Reid MD [facility] CARDIOLOGY [place], [place] [address] (Wo rk) 09/05/2022 Office Visit Cardiology Trinity Reid MD [facility] CARDIOLOGY [place], [place] [address] (Wo rk) documented as of [...] Organization Address City/State/ZIP Code Phon e Number [place], [place] documented in this encounter Visit Diagnoses Not on filedocumented in this encounter Care Teams Fuel Efficient Automobile Designer Relationship Specialty Start Date End Date Bobby Das MD PCP - General 10/02/[address] [place] [address] [place] [phone] documented as of this encounter
--- OUTSIDE RECORDS SUMMARY | 2022-07-26 10:54 | XMS_ITS | Encounter Summary ---
:1940 [address] [facility] [place] [address] Care Team Providers Name Role Phone Bobby Das MD Primary Care Provider Encounter Details Date Type Department Care Team Description 05/15/2022 Ancillary Procedure Radiology Library at [facility], Lavell Butt, [facility] [place] [address] VASCULAR SURGERY [phone] [place] [id number] (Wo rk) Social History Tobacco Use Types [...] Gastroenterology Negra Collins MD [facility] DR GASTROENTEROLOGY DEPT [place], [place] [address] (Wo rk) 09/05/2022 Appointment Cardiology Trinity Reid MD [facility] CARDIOLOGY [place], [place] [address] (Wo rk) 09/05/2022 Office Visit Cardiology Trinity Reid MD [facility] CARDIOLOGY [place], [place] [address] (Wo rk) documented as of [...] Organization Address City/State/ZIP Code Phon e Number [place], [place] documented in this encounter Visit Diagnoses Not on filedocumented in this encounter Care Teams Underwater Welder Relationship Specialty Start Date End Date Bobby Das MD PCP - General 10/02/[address] [place] [address] [place] [phone] documented as of this encounter
--- OUTSIDE RECORDS SUMMARY | 2022-07-26 10:54 | XMS_ITS | Encounter Summary ---
:1940 Author Organization [facility] [place] [address] Care Team Providers Name Role Phone Bobby Das MD Primary Care Provider Encounter Details Date Type Department Care Team Description 07/25/2015 Hospital Encounter Laboratory Leo Solo, [facility] [place] [address]-DERMATOLOGY [place], [place] [address] (Wo rk) Social History Tobacco [...] MD [facility] GASTROENTEROLOGY DEPT [place], [place] [address] (Wo rk) 09/05/2022 Appointment Cardiology Trinity Reid MD [facility] CARDIOLOGY [place], [place] [address] (Wo rk) 09/05/2022 Office Visit Cardiology Trinity Reid MD [facility] ER CARDIOLOGY [place] [id number] (Wo rk) documented as of this encounter Procedures Procedure Name Priority Date/Time Associated Diagnosis Comme nts SURGICAL PATHOLOGY Routine 07/25/2015 9:51 AM Res ults for this REPORT EDT procedure are i n the results section. documented in this encounter Results Surgical Pathology Report (07/25/2015 9:51 AM EDT) Component Value Ref Test Analysis Performed At [facility] Method Time Signature Surgical The signing pathologist has (i) examined the relevant preparation(s) for the [facility] Pathology specimen(s) and (ii) rendered or confirmed the diagnosis(e s). [facility] Report Accession Number: [id number] . ?Surgic al Pathology DIAGNOSIS CONSULTATION CASE Outside slides labeled [id number], collection date 07/03/2015 . Skin, right sabianist, excision: ?- ??BASAL CELL CARCINOMA, INFILTRATIVE TYPE [...] CONSULTATION CASE A - 3 slides labeled [id number], collection date 07/03/2015. [id number] Report to: [facility] Surgical Pathology Department [facility], [address], [address]nd Floor [address], [place] ??[address] SPECIMEN PROCESSING [facility] ([facility]) pathology slide(s) are reviewed. ??Refer to Diagnosis and Specimen Submitted for specific case infor arpan. For the full text of the [facility] ([facility]) report(s) please refer to Non-DH Documentati on Pathology in the electronic health record (eDH). Specimen (Source) Anatomical Collection Method Collection Time Re ceived Time Location / / Volume Laterality 07/25/2015 9:51 AM EDT Leo Solo MD PATHOLOGY/CYTOLOGY ORDERABLE S Performing Organization Address City/State/ZIP [place] [address] [facility] documented in this encounter Visit Diagnoses Not on filedocumented in this encounter Care Teams Contact Center Manager Relationship Specialty Start Date End Date Bobby Das MD PCP - General 10/02/[address] [place] [address] [place] [phone] documented as of this encounter
--- OUTSIDE RECORDS SUMMARY | 2022-07-26 10:54 | XMS_ITS | Encounter Summary ---
:1940 Author Organization [facility] [place] [address] Care Team Providers Name Role Phone Bobby Das MD Primary Care Provider Encounter Details Date Type Department Care Team Description 12/13/2016 Telephone Pain Management [place] [address] Social History Tobacco Use Types Packs/Day [...] [facility] DR GASTROENTEROLOGY DEPT [place], [place] [address] (Wo rk) 09/05/2022 Appointment Cardiology Trinity Reid MD [facility] CARDIOLOGY [place], [place] [address] (Wo rk) 09/05/2022 Office Visit Cardiology Trinity Reid MD [facility] CARDIOLOGY [place], [place] [address] (Wo rk) documented as of this encounter Visit Diagnoses Not on filedocumented in this encounter Care Teams Traffic Incident Management Manager Relationship Specialty Start Date End Date Bobby Das MD PCP - General 10/02/[address] [place] [address] [place] [phone] documented as of this encounter
--- OUTSIDE RECORDS SUMMARY | 2022-07-26 10:54 | XMS_ITS | Encounter Summary ---
:1940 Author Organization [facility] [place] [address] Care Team Providers Name Role Phone Bobby Das MD Primary Care Provider Reason for Visit Reason Comments Suture / Staple Removal Encounter Details Date Type Department Care Team Description 08/31/2015 Clinical Support Dermatology at [place] Visit for suture Heat Nicol Estrella MD removal [address] [facility] [address] [facility] [phone] RD-DERMATOLOGY [place] [phone] Social History Tobacco Use Types Packs/Day Years [...] [facility] GASTROENTEROLOGY DEPT [place], [place] [address] (Wo rk) 09/05/2022 Appointment Cardiology Trinity Reid MD [facility] CARDIOLOGY [place], [place] [address] (Wo rk) 09/05/2022 Office Visit Cardiology Trinity Reid MD [facility] CARDIOLOGY [place], [place] [address] (Wo rk) documented as of this encounter Visit Diagnoses Diagnosis Visit for suture removal Encounter for removal of sutures documented in this encounter Care Teams Shaker Repairer Relationship Specialty Start Date End Date Bobby Das MD PCP - General 10/02/[address] [place] [address] [place] [phone] documented as of this encounter
--- OUTSIDE RECORDS SUMMARY | 2022-07-26 10:54 | XMS_ITS | Encounter Summary ---
:1940 Author Organization [facility] [place] [address] Care Team Providers Name Role Phone Bobby Das MD Primary Care Provider Reason for Referral Diagnostic Test (Routine) - Specialty Diagnoses / Procedures Referred By Contact Refer ramila To Contact Radiology Diagnoses Chest pain, unspecified type Chronic abdominal pain Chano Rebolledo MD [facility] Rad Ct Scan Procedures CT Chest w Contrast CT Chest wo Contrast (Generic) [facility] [place] [address] [place] [address] Referral ID Status Reason Start Date Expiration Visits Visits Date Requested Authorized [id number] Specialty 12/13/2016 12/13/2017 1 1 Service Requested Consultation (Routine) - Closed Specialty Diagnoses / Procedures Referred By Contact Refer ramila To Contact Neurology Diagnoses Radiculopathy of cervical region Chano Rebolledo MD [facility] Neurology [address] [facility] [address] [place] [address] Referral ID Status Reason Start Date Expiration Date Visits V isits Requested Authorized [id number] Closed Test Only 12/13/2016 12/13/2017 1 1 Diagnostic Test (Routine) - Closed Specialty Diagnoses / Procedures Referred By Contact Refer red To Contact Radiology Diagnoses Chest pain, unspecified type Chronic abdominal pain Chano Rebolledo MD [facility] Rad Ct Scan Procedures CT Abdomen & Pelvis w Contrast [facility] [place] [address] [place] [address] Referral ID Status Reason Start Date Expiration Date Visits V isits Requested Authorized [id number] Closed Specialty 12/13/2016 12/13/2017 1 1 Service Requested Reason for Visit Reason Comments Pain Management Neck Pain Bilateral Arm Pain burning across sternum and r ibs, both sides Consultation (Routine) - Closed Specialty Diagnoses / Procedures Referred By Contact Refer red To Contact Pain Management Diagnoses cervical radiculopathy Bobby Das MD [facility] [address] [place] [address] [address] [place], [place] Drive [address] [place] [address] Fax: Referral ID Status Reason Start Date Expiration Date Visits V isits Requested Authorized [id number] Closed Consult, 11/22/2016 11/22/2017 1 1 Test & Treat Encounter Details Date Type Department Care Team Description 12/13/2016 Office Visit Pain Management at [facility], Chest adrianna n, unspecified type; Jose Sullivan MD Chronic abdominal pain; [facility] Radiculop athy of cervical region [facility] [place] [address] [place] [address] Social History Tobacco Use Types [...] Rebolledo MD - 12/13/2016 1:00 PM EST [facility] [place] [address] Phone: PAIN MANAGEMENT NEW PATIENT / CONSULTATION NOTE DATE OF VISIT 12/13/2016 Patient Koko Zamora 1940 REFERRING PROVIDER Bobby Das MD [address] [place] [address] [place] [address] PRIMARY CARE PROVIDER Bobby Das MD CHIEF [...] No Massage: No Meditation/Imagery: No CBT: No Yoga/Ncio Chi/ Movement: No Marijuana: No Anti-inflammatory diet: No ADVERSE DRUG REACTIONS Allergies as of 12/13/2016 - Review Complete 12/13/2016 Allergen Reaction Noted ??? 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 Follow up: -Patient will be called after results are obtained. Koko J Zamora had the opportunity to ask questions and indicated that all questions were answered to his satisfaction. Thank you for this referral, Bobby Das MD [address] [place] [id number]. Chano Rebolledo MD Leonel Orozco MD - [...] MD [facility] DR GASTROENTEROLOGY DEPT [place], [place] [address] (Wo rk) 09/05/2022 Appointment Cardiology Trinity Reid MD [facility] CARDIOLOGY [place], [place] [address] (Wo rk) 09/05/2022 Office Visit Cardiology Trinity Reid MD [facility] CARDIOLOGY [place], [place] [address] (Wo rk) Scheduled Referrals Name [...] site documented in this encounter Care Teams Pot Operator Relationship Specialty Start Date End Date Bobby Das MD PCP - General 10/02/[address] [place] [address] [place] [phone] documented as of this encounter
--- OUTSIDE RECORDS SUMMARY | 2022-07-26 10:54 | XMS_ITS | Encounter Summary ---
:1940 [place] [address] Care Team Providers Name Role Phone Bobby Das MD Primary Care Provider Reason for Visit Reason Comments Left Leg Pain Auth/Cert Specialty Diagnoses / Procedures Referred By Contact Refer red To Contact Diagnoses Limb ischemia LLE thrombus Fito Summers MD [facility] D [place] [address] Referral ID Status Reason Start Date Expiration Date Visits Requ ested Visits Authorized [id number] 1 1 Encounter Details Date Type Department Care Team Description 05/15/2022 Surgery Main Operating Room Savana Summers se, MD [facility] FEMOROPOSANG, [facility] VASCULAR SURG JULIAN [place] [address] LEG [place]ISION ([place] [address] 19.48) [phone] Social History Tobacco Use Types Packs/Day Years [...] [facility] ischemia of the LLE. [...] emergently went to the OR for L CORK TIPPER transverse arteriotomy and primary repair, thromboembolectomy of L SFA/PFA/CORK TIPPER, reperfusion venous drainage for 250 cc, and [...] Discharge Condition: Good Discharge to: Home with [facility] [address] [address] Future Appointments and Orders Future Appointments and Orders Future Appointments Provider Department Dept Phone 05/23/2022 10:30 AM Loretta Cohen MD Dermatology at [facility] Arrive at: Signal Engineer [address] [place] [address] 06/07/2022 1:30 PM Gail Rae APRN Vascular Surgery at [facility] Arrive at: Signal Engineer Area [phone] 06/13/2022 7:30 AM Edson Lagos [place] Vascular Lab at [facility] Arrive at: Signal Engineer Area [phone] 06/13/2022 8:00 AM Fito Summers MD Vascular Surgery at [facility] Arrive at: Signal Engineer Area 3V [phone] 06/13/2022 10:00 AM Alan Reid MD Cardiology at [facility] Arrive at: Signal Engineer Area 4A [phone] Future Orders Complete By Expires Ziopatch 48 Hrs-15 Days [PHI0886 CPT(R)] 05/21/2022 11/20/2022 Process Instructions: Scheduling Instructions: Comments: Questions: Does the patient have a pacemaker? If yes provide HI/LO settings: Apply for 7 or 14 days?: 7 Where will study be performed?: [facility] Clinics JOSSELYN, legs, multiple levels [VAS8 Custom] 06/21/2022 (Approximate) 12/21/2022 Process Instructions: There is no in-house vascular supervisor dental laboratory available on weeknights (5pm-8am), weekends, or holidays. IF THIS IS A REQUEST FOR AN EMERGENT STUDY DURING THOSE HOURS, please have the senior provider responsible for the patient page the Vascular Surgery Fellow/Senior Resident senior health consultant to discuss options. Scheduling Instructions: Questions: Indication for study/signs & symptoms: ALI s/p L fem cutdown with thromboembolectomy Question to be answered: Perfusion to feet? Please check toe pressure Preferred location?: [facility] Referral to Cardiology [REF12 Custom] As directed [...] Zamora for admission to Home Health. [address] [facility] [address] (home) Date of : 1940 Inpatient DOCUMENTATION FOR VNA SERVICES (INCLUDING THOSE PATIENTS WITH MEDICARE COVERAGE REQUIRING HOME VNA SERVICES AND/OR HOSPICE SERVICES) PATIENT'S LOCATION: Koko Zamora [address] [facility] [address] (home) Cell: No relevant phone numbers on file. Worship Leader's Name: Koko In discussion with the attending physician, it is certified that this patient is under their care and that they, or a Nurse Practitioner,Clinical Nurse specialist or Physician Window Sash Installer who is working directly with them, had [...] for managing ADL's. HOME HEALTH CARE AGENCY: [facility] [address] [place] [id number] Start of care: Within 24 to 48 [...] obtained from this patient'sPCP: Bobby Das MD [address] [place] [address] / [place] [address] All VNA agencies which cover the [...] For any problems or questions please call [phone] For issues on weeknights after 5pm and weekends please call [phone] and ask for the Vascular Fellow senior health consultant. JOSEE Santiago Vascular Surgery 05/21/2022 documented [...] For any problems or questions please call [phone] For issues on weeknights after 5pm and weekends please call [phone] and ask for the Vascular Fellow senior health consultant. documented in this encounter Medications at [...] 04/12/20 21 (FLONASE) 50 mcg/actuation Nare route Onaway, Suspension daily as needed. fluorouraciL (EFUDEX) 5 [...] [facility] ischemia of the LLE. [...] status, full code. JOSEE Santiago 05/21/2022 Pager: [phone] PaBrannon gamino, PT - 05/21/2022 10:35 AM [...] plan as stated. Time IN / OUT: 3931-9415 Total Minutes, Physical Therapy: 25 Billing Code: 2 TA Brannon Isaacs DPT Pager: [phone] Physical Therapy Inpatient Rehabilitation Department [place] Jean [...] and plan of care per Dr. Mcnamara (support merchandiser). Please refer to her note above for [...] to Hosp-Admission (Current) from 05/15/2022 in 4 [facility] Office Visit from 04/17/2021 in [...] findings andplan of care per Dr. Mcnamara (support merchandiser). Please refer to her note above for [...] [facility] of the LLE. [...] management following Dottie Hill APRN 05/20/2022 Pager: [phone] Laney Atkins RN - 05/20/2022 1:14 AM EDT Pt Koko transferred to room from [facility]. A&Ox4, oriented to room and call boo. Masimo and telemetry placed. In agreement with assessment as documented this evening by Nuris ASHLEY. No complaints at this time. Pt aware of NPO status and plan for cardiac cath in AM. Urinal provided. Resting comfortably in bed. Nuris Lester RN - 05/20/2022 1:09 AM EDT Pt. Transferred to [facility]. RN accompanied patient to floor and handed off to [facility] RN Dottie Hill APRN - 05/19/2022 10:02 AM EDT Vascular Surgery Progress Note oKko Zamora is a 81 y.o. male with w new onset Afib who presents in transfer from [facility] with acute limb ischemia of the LLE. [...] management following Dottie Hill APRN 05/19/2022 Pager: [phone] Emily Sauceda RN - 05/19/2022 6:28 AM EDT OUTCOME EVALUATION NOTE: OUTCOME SUMMARY: Patient AOx4, VSS on RA. Afib on tele. HR controlled w/ PRN metop, given x2. Denies CP, SOB, n/v. See flowsheets for NVC. Dressings to LLE CDI, prevena WV to groin intact. Voiding to urinal. LBM INSERT MOLDING OPERATOR, patient stating he will maybe try [...] adequately without difficulty to bedside urinal. LBM INSERT MOLDING OPERATOR. Up to chair this AM with nursing staff. Worked with PT, tolerated well. Diet changed to regular at 1800.Plan is for cardiac cath on Friday. PLAN MOVING FORWARD: Bleeding precautions Pain management neurovascular checks PT/OT labor relations worker INDIVIDUALIZED FALL PREVENTION INTERVENTIONS: Patient-specific fall risk [...] [facility] of the LLE. [...] mL Intravenous BID ??? PHENobarbitaL 0.12 mg/kg/dose (Mclean) Oral BID ??? thiamine 100 mg Oral [...] management following Dottie Hill APRN 05/18/2022 Pager: [phone] Brannon Isaacs, PT - 05/18/2022 10:00 AM [...] IR Biopsy Spine 07/20/2019 Bobby Marshall MD [facility] INTERVENTIONL RAD ??? IR VERTEBROPLASTY LUMBAR MULTIPLE LEVELS 07/20/2019 IR Vertebroplasty Lumbar Multiple Levels 07/20/2019 Bobby Marshall MD [facility] INTERVENTIONL RAD ??? IR VERTEBROPLASTY THORACIC SINGLE LEVEL 10/25/2020 IR Vertebroplasty Thoracic Single Level 10/25/2020 Matt Chisholm MD [facility] INTERVENTIONL RAD ??? PRO EMBLC/THRMBC FEMORAL POPLITEAL AORTO-ILIAC ARTERY Left 05/15/2022 EMBOLECTOMY OR THROMBECTOMY, FEMOROPOPLITEAL, AORTOILIAC ARTERY BY LEG INCISION (WRVU 19.48) performed by Fito Summers MD at [facility] MAIN OR Social History: Pt lives [...] in this evaluation. Time IN / OUT: 5827-3965 Total Minutes, Physical Therapy: 30 Billing Code: Basilio Isaacs, PT Pager: [phone] Physical Therapy Inpatient Rehabilitation Department Emily Sauceda RN - 05/18/2022 4:34 AM EDT OUTCOME EVALUATION NOTE: OUTCOME SUMMARY: Patient AOx4, VSS on 2LNC. Afib on tele. HR above 120, MD aware, PRN IV metop given x1, HR returned to 90's-low 100's. Denies CP, SOB, n/v. See flowsheets for NVC. Dressings to LLE CDI, prevena WV to groin intact. Voiding to urinal. LBM INSERT MOLDING OPERATOR. Heparin gtt therapeutic. Pain controlled. Patient [...] adequately without difficulty to bedside urinal. LBM INSERT MOLDING OPERATOR. Patient not OOB this shift. Currently NPO awaitingprocedure in slab lifting supervisor. PLAN MOVING FORWARD: Bleeding precautions Pain management neurovascular checks PT/OT NPO for slab lifting supervisor INDIVIDUALIZED FALL PREVENTION INTERVENTIONS: Patient-specific fall [...] Emergency Department as a transfer from [facility] with left lower extremity limb ischemia. He went to [facility] and was startedon heparin and transferred to [...] he will will be going to the slab lifting supervisor for evaluation. Will defer PT eval at present but will see as ordered post cardiac catheritizaton. Social Hx:Pt lives with his Ursula in [place], [place] in a 2 level home in [...] WBAT LLE LISBET HERMAN PT Pager # [phone] In-Pt Rehab Medicine Dottie Hill APRN - 05/17/2022 7:42 AM EDT Vascular Surgery Progress Note Koko Zamora is a 81 y.o. male with w new onset Afib who presents in transfer from [facility] with acute limb ischemia of the LLE. [...] mL Intravenous BID ??? PHENobarbitaL 0.24 mg/kg/dose (Mclean) Oral BID Followed by ??? [START ON 05/18/2022] PHENobarbitaL 0.12 mg/kg/dose (Mclean) Oral BID ??? thiamine 100 mg Oral [...] management following Dottie Hill APRN 05/17/2022 Pager: [phone] Sary Dos Santos, RN - 05/17/2022 12:16 [...] [facility] ischemia of the LLE. [...] mL Intravenous BID ??? PHENobarbitaL 0.48 mg/kg/dose (Mclean) Oral BID Followed by ??? [START ON 05/17/2022] PHENobarbitaL 0.24 mg/kg/dose (Mclean) Oral BID Followed by ??? [START ON 05/18/2022] PHENobarbitaL 0.12 mg/kg/dose (Mclean) Oral BID ??? thiamine 100 mg Oral [...] management following Edward Rodríguez MD 05/16/2022 Pager: [phone] Sary Dos Santos RN - 05/16/2022 12:52 [...] 2129 Hand off to DION Ramirez 3 minong documented in this encounter H&P Notes Kerry [...] [facility] ischemia of the LLE. [...] IR Biopsy Spine 07/20/2019 Bobby Marshall MD [facility] INTERVENTIONL RAD ??? IR VERTEBROPLASTY LUMBAR MULTIPLE LEVELS 07/20/2019 IR Vertebroplasty Lumbar Multiple Levels 07/20/2019 Bobby Marshall MD [facility] INTERVENTIONL RAD ??? IR VERTEBROPLASTY THORACIC SINGLE LEVEL 10/25/2020 IR Vertebroplasty Thoracic Single Level 10/25/2020 Matt Chisholm MD [facility] INTERVENTIONL RAD Social Hx: Social History [...] Refill ??? fluticasone propionate (FLONASE) 50 mcg/actuation Onaway, Suspension as needed. ??? fluorouraciL (EFUDEX) 5 [...] and consented. Tim Chicas MD 05/15/2022 Pager: [phone] documented in this encounter ED Notes Lc Harris PA - 05/15/2022 1:20 PM EDT ED Provider Note HPI: Koko Zamora is a 81 y.o. male with history of atrial fibrillation not on anticoagulation, and GI bleeding who presents to the Emergency Department as a transfer from [facility] with left lower extremity limb ischemia. Patient says that the symptoms started roughly 630 this morning when he developed severe pain in his left lower extremity. He went to [facility] and was started on heparin and transferred [...] src: Oral SpO2: 94 % O2 Device: CA O2 Flow Rate (L/min): 2 L/min Physical [...] lower extremity earlier today and went to [facility] where it was determined that he had ischemia of the left lower extremity. Vascular surgery [facility] was contacted and he was [...] an outpatient cardiac rehabilitation program at [facility] was discussed. Patient agrees to a referral to this program. Timing will depend on his recovery from Vascular surgery. He is going home w/VNA PT. I gave him the brochure for the program at [facility] for future reference. Care Management Discharge - [...] information for follow-up Home Health [facility] H[facility], [place] [address] [place] [address] Transportation: family or friend will provide Functional [...] Product type* / Secondary Insurance: [facility] Prescription Coverage: Yes This plan was formulated with input from patient and team. All are in agreement with plan. [facility] for [facility] IMM. Shawn (Satish) DION López RN/CM - Cellphone: [phone] Pager: [phone] Covering Service RN/CM Plan of Care - [...] catheterization, transferred in hospital bed accompanied by Antenna Engineer RN, remains on telemetry monitoring. Heparin [...] Product type* / Secondary Insurance: [facility] Last Physical Therapy Recommendation: home [...] Office of Care Management letter from the Community Education Coordinator pertaining to rehab referrals. ?? provide a letter describing our affiliations within the [facility] and educate about their right to choose where referrals are sent. ?? provide a list of Home Health Agencies / Durable Medical Equipment vendors which serve their preferred geographic area. ?? provided patient with [facility] Star Quality Rating handout. They have requested referrals to: [facility]. [address] [place] [address] Note routed to a Electronic Scanner Operator who will communicate referrals to facilities and provide any required information. Transportation: family or friend will provide Barriers to discharge: None Plan going forward: Patient is going for a cardiac cath today and plan will come from there. Patientwas recently seen by PT and they recommend VNA at time of discharge. [facility] was routed and pendedat this time. Care Management will continue to follow and assist with discharge planning and coordination of care as indicated. Anticipated Date of Discharge: 05/21/2022 Nataly RICHMOND RN Phone: [phone] Pager: [phone] Plan of Care - Laney Atkins RN [...] not included. Former[place] [address] INPATIENT CARDIOLOGY CONSULT NOTE Date of Consultation: [...] LLE pain on 05/15 and presented to [facility], where he was started on heparin and [...] IR Biopsy Spine 07/20/2019 Bobby Marshall MD [facility] INTERVENTIONL RAD IR VERTEBROPLASTY LUMBAR MULTIPLE LEVELS 07/20/2019 IR Vertebroplasty Lumbar Multiple Levels 07/20/2019 Bobby Marshall MD [facility] INTERVENTIONL RAD IR VERTEBROPLASTY THORACIC SINGLE LEVEL 10/25/2020 IR Vertebroplasty Thoracic Single Level 10/25/2020 Matt Chisholm MD [facility] INTERVENTIONL RAD PRO EMBLC/THRMBC FEMORAL POPLITEAL AORTO-ILIAC ARTERY Left 05/15/2022 EMBOLECTOMY OR THROMBECTOMY, FEMOROPOPLITEAL, AORTOILIAC ARTERY BY LEG INCISION (WRVU 19.48) performed by Fito Summers MD at [facility] MAIN OR Allergies Allergen Reactions Aspirin Other (See Comments) GI bleed Out-Patient Medications: Medications Prior to Admission Medication Sig Dispense Refill Last Dose fluorouraciL (EFUDEX) 5 % Cream daily. CRESTOR 40 mg Tablet Take 40 mg by mouth daily. fluticasone propionate (FLONASE) 50 mcg/actuation Onaway, Suspension as needed. ascorbic acid, vitamin C, [...] 5 mL Intravenous BID PHENobarbitaL 0.24 mg/kg/dose (Mclean) Oral BID Followed by [START ON 05/18/2022] PHENobarbitaL 0.12 mg/kg/dose (Mclean) Oral BID thiamine 100 mg Oral Daily folic acid 1,000 mcg Oral Daily multivitamin with minerals 1 tablet Oral Daily heparin (porcine) infusion 1,200 Units/hr (05/17/22 7181) Family History: No family history on file. [...] to Hosp-Admission (Current) from 05/15/2022 in 3 [facility] Office Visit from 04/17/2021 in [...] continue to follow Anne-Marie Larson MD Pager [phone] Clinic: [phone] 05/17/22 6:22 PM Initial Assessments - Irfah Bell RN - 05/16/2022 10:54 AM EDT [...] [facility] must abide by [place] law. [...] raised toilet seat Home Address confirmed as: [address] [place] [address] Social & Family Supports: All names listed below confirmed with patient as Incorrect. Will notify toni to correct. Wifes address is same as and phone is [phone]. Extended Emergency Contact Information Primary Emergency Contact: Ursula Zamora Address: [address] [place] [address] [address] [place] [address] [facility] Relation: Spouse Current Care Provided by: [...] Product type* / Secondary Insurance: [facility] Prescription Coverage: Yes Preferred Pharmacy: [id number] - [place], [place] - [address] [facility] [address] [facility] [address] [id number] - [place], [place] - [address] [facility] [address] [facility] [address] [place] Status: Patient is a : unable to assess Primary Care Provider: Bobby Das MD [phone] Patient/Caregiver Goals of Treatment: to walk again Potential Needs for Transition of Care: none noted per 05/16 IDR Transportation: family will provide Transportation Anticipated: family or friend will provide Concerns to be Addressed: no discharge needs identified Assessment: Patient is admitted to vascular surg service for left lower extremity limb ischemia Plan: Per PT OT recommendations . Has used T[employer] in the past. A member of the Care Management team will continue to monitor progress, follow for continuity of care and assist with transition of care planning. Ifrah Bell RN BSN Resident Medical OfficerServicing Rep of Care Management Pager [phone] Brief Op Note - Erin Garza MD - 05/15/2022 5:04 PM EDT Brief Operative Note Patient Name: Koko Zamora : [id number] MR#: [id number] Case Date: 05/15/2022 Surgeon: Surgeon(s) and Role: [...] Operative Note Patient Name: Koko Zamora : [id number] MR#: [id number] Case Date: 05/15/2022 Surgeon: Surgeon(s) and Role: [...] [facility] GASTROENTEROLOGY DEPT [place], [place] [address] (Wo rk) 09/05/2022 Appointment Cardiology Trinity Reid MD [facility] CARDIOLOGY [place], [place] [address] (Wo rk) 09/05/2022 Office Visit Cardiology Trinity Reid MD [facility] CARDIOLOGY [place], [place] [address] (Wo rk) Scheduled Referrals Name [...] Value Ref Test Analysis Performed At [facility] Range Method Time Signature VB Text Department: Vascular Surgery Lab VASCUBASE Report Patient: [id number] (KOKO ZAMORA) CPT: 61302 Referring Physician: FITO SUMMERS ?? Phone: Indications: s/p L CORK TIPPER endart. Diabetes mellitus: no Findings: Right ?Pressure [...] P athologist Signature Heparin UFH 0.42 IU/mL [facility] LABORATORY Comment: Heparin (anti-Xa) [...] Organization Address City/State/[place] [address] Differential, Automated (05/21/2022 6:15 AM EDT) P athologist Signature Neutrophils % 58.8 % [facility] LABORATORY Neutr Abs (ANC) 3.97 1.70 - [facility] 6.10 [facility] x10(3)/[facility] LABORATORY Lymphocytes % 25.2 % [facility] LABORATORY Lymphocytes Abs 1.7 0.9 - 3.2 [facility] x10(3)/[facility] LABORATORY Monocytes % 12.9 % [facility] LABORATORY Monocyte Abs 0.9 0.3 - 0.9 [facility] x10(3)/[facility] LABORATORY Eosinophils % 2.1 % [facility] LABORATORY Eosinophils Abs 0.1 0.0 - 0.4 [facility] x10(3)/[facility] LABORATORY Basophils % 0.4 % [facility] LABORATORY Basophils Abs 0.0 0.0 - 0.1 [facility] x10(3)[facility] LABORATORY Immature Gran % 0.60 [...] Rain Gran Abs 0.04 0.00 - 0.04 x10(3)/[facility] MAR Y [facility] LABORATORY Specimen Anatomical Collection Method Collection Time Receive d Time (Source) Location / / Volume Laterality Blood 05/21/2022 6:15 AM 2 6:38 EDT AM EDT Resulting Agency Comment Spec In Lab Edward Rodríguez MD HEMATOLOGY ORDERABLES Performing Organization Address City/State/[place] [address] (ABNORMAL) Hemogram (05/21/2022 6:15 AM EDT) [facility] gist Method Time Signature WBC 6.8 4.0 - 9.5 [facility] x10(3)/[facility] LABORATORY RBC 3.59 (L) 4.58 - [facility] 5.54 [facility] x10(6)/[facility] LABORATORY Hemoglobin 11.8 (L) 13.7 - [facility] 16.5 g/dL [facility] LABORATORY Hematocrit 34.5 (L) 40.5 - [facility] 48.5 % [facility] LABORATORY MCV 96.1 (H) 82.9 - [facility] 93.1 [facility] LABORATORY MCH 32.9 (H) 27.5 - [facility] 32.1 pg [facility] LABORATORY MCHC 34.2 32.0 - [facility] 35.7 g/dL [facility] LABORATORY Platelets 198 145 - 357 [facility] x10(3)/[facility] LABORATORY RDWSD 44.9 36.0 - [facility] 45.0 [facility] LABORATORY RDWCV 12.6 11.4 - [facility] 13.8 % [facility] LABORATORY MPV 10.0 7.6 - 12.9 [facility] LABORATORY nRBC % Auto 0.3 % [facility] LABORATORY nRBC Abs Auto 0.020 (H) 0.000 - [facility] 0.000 [facility] x10(3)/[facility] LABORATORY Specimen Anatomical Collection Method Collection Time Receive d Time (Source) Location / / Volume Laterality Blood 05/21/2022 6:15 AM 2 6:38 EDT AM EDT Resulting Agency Comment Spec In Lab Edward Rodríguez MD HEMATOLOGY ORDERABLES Performing Organization Address City/State/[place] [address] EKG 12 Lead (05/20/2022 7:04 PM EDT) Component Value Ref Range Test Analysis Performed Pathologis t Method Time At Signature Ventricular rate 101 BPM MUSE SYSTEM QRS Duration 116 ms MUSE SYSTEM Q-T Interval 378 ms MUSE SYSTEM QTC Calculated 490 ms MUSE SYSTEM (Bezet) Calculated R [place] -53 degrees MUSE SYSTEM Calculated T [place] 101 degrees MUSE SYSTEM INTERPRETATION Atrial fibrillation [...] Laterality Volume Narrative 05/20/2022 7:09 PM EDT ?[facility] ? Cardiac Cathete rization/Intervention Report ? Patient Name: Koko Zamora. ? Procedure Date: 05/20/2022 ? A #: [id number] ? Primary Physician: Abundio Servin ? Case #: [id number] ? File Name: [id number] ? Catheterization Order Number: [id number] ? [facility] ? Final Report [place], [place] ? Patient Name: ? Koko J. Klarissa uson ? ID#: ?[id number] ? : ?1940 ? Procedure Date: ? [...] procedure was Urgent. The indication for ?the slab lifting supervisor visit is cardiomyo nita. Chest pain [...] ?3.5 guiding catheter and a 3.5 Fr [facility] [place] [address] ??20 Mhz. ??Imaging ?was successful. ??Image [...] premounted 2. 75 x 30 mm Rudy Bruce (AMPARO) was deployed ? with a maximum [...] may require ?modification of this regimen. [facility] Interventional Cardiology for ?questions. [...] note might be different from the original. [facility] Cardiac Catheterization/Intervention Re port Patient Name: Koko Zamora Procedure Date: 05/20/2022 A #: [id number] Primary Physician: Abundio Servin Case #: File Name: [id number] Catheterization Order Number: [id number] [facility] Antenna Engineer [facility] Final Report [place], [place] Patient Name: Koko Zamora ID#: [id number] : 1940 Procedure Date: May 20, 2022 [...] designated a s ASA Class IV. The [facility] clinical frailty scale is 3: Managing Well. [...] e was Urgent. The indication for the slab lifting supervisor visit is cardiomyopathy. C hest pain symptom [...] 3.5 guiding catheter and a 3.5 Fr [facility] [place] [address] 20 Mhz. Imaging was successful. Image [...] atmospheres. A premounted 2.75 x 30 mm [place] Bruce (AMPARO) was deployed with a maximum inflation [...] require modification of this regimen. Consult D [facility] Interventional Cardiology for questions. [...] Signature POC Glucose 123 65 - 199 [facility] Comment: Supplemental ranges: <140 mg/dL before meals <180 mg/dL all other times of the day Specimen Anatomical Collection Method Collection Time Receive d Time (Source) Location / / Volume Laterality Blood 05/20/2022 5:42 PM 2 5:42 EDT PM EDT Fito Summers MD POINT OF CARE TEST ORDERABLE S Performing Organization Address City/State/[place] [address] (ABNORMAL) BMP w/fasting Glucose (05/20/2022 10:50 AM EDT) athologist Signature Glucose 152 (H) 65 - 99 [facility] Fasting mg/dL [facility] Comment: ?Fasting* Glucose Interpretive C riteria [...] of Diabetes Mellitus, Position Statement from the [place] [employer]. ??Diabete s Care, Volume 33, [...] Organization Address City/State/[place] [address] Heparin (unfractionated) Level (05/20/2022 5:02 AM EDT) P athologist Signature Heparin UFH 0.57 IU/mL [facility] LABORATORY Comment: Heparin (anti-Xa) [...] Organization Address City/State/[place] [address] (ABNORMAL) Differential, Automated (05/20/2022 5:02 AM EDT) Patholo gist Method Time Signature Neutrophils % 58.1 % [facility]OR[facility] Neutr Abs (ANC) 4.52 1.70 - [facility] 6.10 [facility] x10(3)/[facility] LABORATORY Lymphocytes % 24.1 % [facility] Lymphocytes Abs 1.9 0.9 - 3.2 [facility] x10(3)/[facility] LABORATORY Monocytes % 13.8 % [facility] LABOR[facility]ORY Monocyte Abs 1.1 (H) 0.3 - 0.9 [facility] x10(3)/[facility] LABORATORY Eosinophils % 2.6 % [facility] LAB[facility]ORY Eosinophils Abs 0.2 0.0 - 0.4 [facility] x10(3)/[facility] LABORATORY Basophils % 0.8 % [facility] LAB[facility]ORY Basophils Abs 0.1 0.0 - 0.1 [facility] x10(3)/[facility] LABORATORY Immature Gran % 0.60 [...] Abs 0.05 (H) 0.00 - 0.04 x10(3)/[facility] LABORATORY Specimen Anatomical Collection Method Collection Time Receive d Time (Source) Location / / Volume Laterality Blood 05/20/2022 5:02 AM 5:19 EDT AM EDT Resulting Agency Comment Spec In Lab Edward Rodríguez MD HEMATOLOGY ORDERABLES Performing Organization Address City/State/[place] [address] (ABNORMAL) Hemogram (05/20/2022 5:02 AM EDT) Analysis Performed At Patho logist Time Signature WBC 7.8 4.0 - 9.5 [facility] x10(3)/[facility] LABORATORY RBC 3.53 (L) 4.58 - [facility] 5.54 [facility] x10(6)/[facility] LABORATORY Hemoglobin 11.4 (L) 13.7 - [facility] 16.5 g/dL [facility] Hematocrit 34.3 (L) 40.5 - [facility] 48.5 % [facility] MCV 97.2 (H) 82.9 - [facility] 93.1 fL [facility] MCH 32.3 (H) 27.5 - [facility] 32.1 pg [facility] MCHC 33.2 32.0 - [facility] 35.7 g/dL [facility] Platelets 181 145 - 357 [facility] x10(3)/[facility] LABORATORY RDWSD 46.4 (H) 36.0 - [facility] 45.0 [facility] LABORATORY RDWCV 13.0 11.4 - [facility] 13.8 % [facility] MPV 10.4 7.6 - 12.9 [facility] LABORATORY nRBC % Auto 0.0 % [facility] LABORATORY nRBC Abs Auto 0.000 0.000 - [facility] 0.000 [facility] x10(3)/[facility] LABORATORY Specimen Anatomical Collection Method Collection Time Receive d Time (Source) Location / / Volume Laterality Blood 05/20/2022 5:02 AM 2 5:19 EDT AM EDT Resulting Agency Comment Spec In Lab Edward Rodríguez MD HEMATOLOGY ORDERABLES Performing Organization Address City/State/[place] [address] Heparin (unfractionated) Level (05/19/2022 3:26 AM EDT) athologist Signature Heparin UFH 0.59 IU/mL [facility] LABORATORY Comment: Heparin (anti-Xa) [...] Organization Address City/State/[place] [address] (ABNORMAL) Differential, Automated (05/19/2022 3:26 AM EDT) Patholo gist Method Time Signature Neutrophils % 62.1 % [facility] LAB[facility]ORY Neutr Abs (ANC) 4.59 1.70 - [facility] 6.10 [facility] x10(3)/[facility] LABORATORY Lymphocytes % 22.1 % [facility] LABOR[facility]ORY Lymphocytes Abs 1.6 0.9 - 3.2 [facility] x10(3)/[facility] LABORATORY Monocytes % 13.5 % [facility] LAB[facility]ORY Monocyte Abs 1.0 (H) 0.3 - 0.9 [facility] x10(3)/[facility] LABORATORY Eosinophils % 1.3 % [facility] LAB[facility]ORY Eosinophils Abs 0.1 0.0 - 0.4 [facility] x10(3)/[facility] LABORATORY Basophils % 0.5 % [facility] LABOR[facility]ORY Basophils Abs 0.0 0.0 - 0.1 [facility] x10(3)/[facility] LABORATORY Immature Gran % 0.50 [...] Rain Gran Abs 0.04 0.00 - 0.04 x10(3)/[facility] LABOR[facility]ORY Specimen Anatomical Collection Method Collection Time Receive d Time (Source) Location / / Volume Laterality Blood 05/19/2022 3:26 AM 3:59 EDT AM EDT Resulting Agency Comment Spec In Lab Edward Rodríguez MD HEMATOLOGY ORDERABLES Performing Organization Address City/State/[place] [address] (ABNORMAL) Hemogram (05/19/2022 3:26 AM EDT) Analysis Performed At Path logist Time Signature WBC 7.4 4.0 - 9.5 [facility] x10(3)/[facility] LABORATORY RBC 3.74 (L) 4.58 - [facility] 5.54 [facility] x10(6)/[facility] LABORATORY Hemoglobin 12.1 (L) 13.7 - [facility] 16.5 g/dL [facility] Hematocrit 36.4 (L) 40.5 - [facility] 48.5 % [facility] MCV 97.3 (H) 82.9 - [facility] 93.1 [facility] LABORATORY MCH 32.4 (H) 27.5 - [facility] 32.1 pg [facility] MCHC 33.2 32.0 - [facility] 35.7 g/dL [facility] Platelets 168 145 - 357 [facility] x10(3)/[facility] LABORATORY RDWSD 46.9 (H) 36.0 - [facility] 45.0 [facility] LABORATORY RDWCV 13.0 11.4 - [facility] 13.8 % [facility] MPV 10.5 7.6 - 12.9 [facility] nRBC % Auto 0.0 % [facility] LABOR[facility]ORY nRBC Abs Auto 0.000 0.000 - [facility] 0.000 [facility] x10(3)/[facility] LABORATORY Specimen Anatomical Collection Method Collection Time Receive d Time (Source) Location / / Volume Laterality Blood 05/19/2022 3:26 AM 3:59 EDT AM EDT Resulting Agency Comment Spec In Lab Edward Rodríguez MD HEMATOLOGY ORDERABLES Performing Organization Address City/State/[place] [address] TSH (05/18/2022 8:00 PM EDT) P athologist Signature TSH 2.27 0.27 - 4.20 [facility] mcIU/mL [facility] Comment: Reference Interval (mcIU/mL): Females: ??First Trimester: 0.23-3.88 ??Second Trimester: 0.22-3.90 ??Third Trimester: 0.44-4.66 Specimen Anatomical Collection Method Collection Time Receive d Time (Source) Location / / Volume Laterality Blood 05/18/2022 8:00 PM 2 8:06 EDT PM EDT Resulting Agency Comment Spec In Lab Fito Summers MD CHEMISTRY ORDERABLES Performing Organization Address City/State/ZIP Code Phon e Number [facility] [place] [address] (ABNORMAL) Differential, Automated (05/18/2022 3:34 AM EDT) [facility] gist Method Time Signature Neutrophils % 67.2 % [facility] LABORATORY Neutr Abs (ANC) 5.89 1.70 - [facility] 6.10 [facility] x10(3)/[facility] LABORATORY Lymphocytes % 17.1 % [facility] LABOR[facility]ORY Lymphocytes Abs 1.5 0.9 - 3.2 [facility] x10(3)/[facility] LABORATORY Monocytes % 13.6 % [facility] LAB[facility]ORY Monocyte Abs 1.2 (H) 0.3 - 0.9 [facility] x10(3)/[facility] LABORATORY Eosinophils % 1.0 % [facility] LABOR[facility]ORY Eosinophils Abs 0.1 0.0 - 0.4 [facility] x10(3)/[facility] LABORATORY Basophils % 0.6 % [facility] LABOR[facility]ORY Basophils Abs 0.0 0.0 - 0.1 [facility] x10(3)/[facility] LABORATORY Immature Gran % 0.50 [...] Rain Gran Abs 0.04 0.00 - 0.04 x10(3)/[facility] LAB[facility]ORY Specimen Anatomical Collection Method Collection Time Receive d Time (Source) Location / / Volume Laterality Blood 05/18/2022 3:34 AM 2 3:48 EDT AM EDT Resulting Agency Comment Spec In Lab Edward N Facciponte MD HEMATOLOGY ORDERABLES Performing Organization Address City/[facility]/[place] [address] (ABNORMAL) Hemogram (05/18/2022 3:34 AM EDT) Analysis Performed At Patho logist Time Signature WBC 8.8 4.0 - 9.5 [facility] x[facility](3[facility] LABORATORY RBC 3.45 (L) 4.58 - [facility] 5.54 [facility] x10(6[facility] LABORATORY Hemoglobin 11.2 (L) 13.7 - [facility] 16.5 g/dL [facility] Hematocrit 33.0 (L) 40.5 - [facility] 48.5 % [facility] MCV 95.7 (H) 82.9 - [facility] 93.1 [facility] LABORATORY MCH 32.5 (H) 27.5 - [facility] 32.1 pg [facility] MCHC 33.9 32.0 - [facility] 35.7 g/dL [facility] Platelets 130 (L) 145 - 357 [facility] x10(3)/[facility] LABORATORY RDWSD 46.2 (H) 36.0 - [facility] 45.0 [facility] LABORATORY RDWCV 13.2 11.4 - [facility] 13.8 % [facility] MPV 10.8 7.6 - 12.9 [facility] LABORATORY nRBC % Auto 0.0 % [facility] LABORATORY nRBC Abs Auto 0.000 0.000 - [facility] 0.000 [facility] x10(3)/[facility] LABORATORY Specimen Anatomical Collection Method Collection Time Receive d Time (Source) Location / / Volume Laterality Blood 05/18/2022 3:34 AM 3:48 EDT AM EDT Resulting Agency Comment Spec In Lab Edward Rodríguez MD HEMATOLOGY ORDERABLES Performing Organization Address City/[facility]/[place] [address] Heparin (unfractionated) Level (05/18/2022 3:34 AM EDT) athologist Signature Heparin UFH 0.59 IU/mL [facility] LABORATORY Comment: Heparin (anti-Xa) [...] Organization Address City/State/ZIP Code Phon e Number [address] Magnesium (05/17/2022 3:33 AM EDT) athologist Signature Magnesium 0.76 0.69 - 1.07 [facility] mmol/L [facility] Specimen Anatomical Collection Method Collection Time Receive d Time (Source) Location / / Volume Laterality Blood Venous Draw / 05/17/2022 3:33 AM 05/17/20 4:05 Unknown EDT AM EDT Resulting Agency Comment Spec In Lab Dottie Hill APRN CHEMISTRY ORDERABLES Performing Organization Address City/State/ZIP Code Phon e Number [address] (ABNORMAL) Basic Metabolic Panel (non-fasting) (05/17/2022 3:33 AM EDT) athologist Signature Glucose Lvl 158 65 - 199 [facility] mg/dL [facility] Comment: Diabetes: >=200 mg/dL [...] Organization Address City/State/[place] [address] (ABNORMAL) Differential, Automated (05/17/2022 3:33 AM EDT) Patholo gist Method Time Signature Neutrophils % 65.5 % [facility] LABORATORY Neutr Abs (ANC) 6.84 (H) 1.70 - [facility] 6.10 [facility] x10(3)/[facility] LABORATORY Lymphocytes % 19.7 % [facility] LABORATORY Lymphocytes Abs 2.1 0.9 - 3.2 [facility] x10(3)/[facility] LABORATORY Monocytes % 13.1 % [facility] LABORATORY Monocyte Abs 1.4 (H) 0.3 - 0.9 [facility] x10(3)/[facility] LABORATORY Eosinophils % 0.6 % [facility] LABORATORY Eosinophils Abs 0.1 0.0 - 0.4 [facility] x10(3)/[facility] LABORATORY Basophils % 0.6 % [facility] LABORATORY Basophils Abs 0.1 0.0 - 0.1 [facility] x10(3)/[facility] LABORATORY Immature Gran % 0.50 % [facility] [...] Abs 0.05 (H) 0.00 - 0.04 x10(3)/[facility] LABORATORY Specimen Anatomical Collection Method Collection Time Receive d Time (Source) Location / / Volume Laterality Blood 05/17/2022 3:33 AM 2 3:53 EDT AM EDT Resulting Agency Comment Spec In Lab Edward Rodríguez MD HEMATOLOGY ORDERABLES Performing Organization Address City/State/[place] [address] (ABNORMAL) Hemogram (05/17/2022 3:33 AM EDT) Analysis Performed At [facility] logist Time Signature WBC 10.4 (H) 4.0 - 9.5 [facility] x10(3)/[facility] LABORATORY RBC 3.72 (L) 4.58 - [facility] 5.54 [facility] x10(6)/[facility] LABORATORY Hemoglobin 12.0 (L) 13.7 - [facility] 16.5 g/dL [facility] Hematocrit 36.4 (L) 40.5 - [facility] 48.5 % [facility] MCV 97.8 (H) 82.9 - [facility] 93.1 [facility] LABORATORY MCH 32.3 (H) 27.5 - [facility] 32.1 pg [facility] MCHC 33.0 32.0 - [facility] 35.7 g/dL [facility] Platelets 149 145 - 357 [facility] x10(3)/[facility] LABORATORY RDWSD 48.7 (H) 36.0 - [facility] 45.0 [facility] RDWCV 13.5 11.4 - [facility] 13.8 % [facility] MPV 10.6 7.6 - 12.9 [facility] LABORATORY nRBC % Auto 0.0 % [facility] LABORATORY nRBC Abs Auto 0.000 0.000 - [facility] 0.000 [facility] x10(3)/[facility] LABORATORY Specimen Anatomical Collection Method Collection Time Receive d Time (Source) Location / / Volume Laterality Blood 05/17/2022 3:33 AM 3:53 EDT AM EDT Resulting Agency Comment Spec In Lab Edward Rodríguez MD HEMATOLOGY ORDERABLES Performing Organization Address City/State/[place] [address] (ABNORMAL) Urinalysis Microscopic Exam [...] Organization Address City/State/ZIP Code Phon e Number [address] (ABNORMAL) Urinalysis with reflex Culture (05/16/2022 11:15 PM EDT) Patholo gist Method Time Signature Glucose UA Negative Negative [facility] mg/dL [facility] Protein UA Negative Negative [facility] mg/dL [facility] Bilirubin UA Negative Negative [facility] mg/dL [facility] Comment: Clinical correlation required for positi [...] [facility] LABOR[facility]ORY Blood UA Small (A) Negative mg/dL [facility] LAB[facility]ORY Ketones UA Trace (A) Negative mg/dL [facility] LABORATORY Nitrite UA Negative Negative [facility] LABORATORY Leukocytes UA Negative Negative [facility] LABORATORY Appearance UA Clear Clear [facility] LABORATORY Spec [place] UA 1.021 1.005 - 1.030 [facility] Color UA Yellow Yellow [facility] LABORATORY Culture Reflexed No [facility] LABORATORY Specimen Anatomical Collection Method Collection Time Receive d Time (Source) Location / / Volume Laterality Clean Catch 05/16/2022 11:15 05/16/2022 Urine PM EDT 11:30 PM EDT Resulting Agency Comment Spec In Lab Fito Summers MD URINE ORDERABLES Performing Organization Address City/[facility]/[place] [address] Heparin (unfractionated) Level (05/16/2022 [...] Organization Address City/State/[place] [address] XR Chest One View [...] questions please contact the health health care specialist that requested your imaging first. [...] questions please contact the health health care specialist that requested your imaging first. Fito Summers MD IMG DX ORDERABLES EKG 12 Lead (05/16/2022 8:57 PM EDT) Component Value Ref Range Test Analysis Performed Pathologis t Method Time At Signature Ventricular rate 117 BPM MUSE SYSTEM QRS Duration 112 ms MUSE SYSTEM Q-T Interval 346 ms MUSE SYSTEM QTC Calculated 482 ms MUSE SYSTEM (Bezet) Calculated R [place] -48 degrees MUSE SYSTEM Calculated T [place] 111 degrees MUSE SYSTEM INTERPRETATION Atrial fibrillation [...] EDT) athologist Signature Heparin UFH 0.53 IU/mL [facility] LABORATORY Comment: Heparin (anti-Xa) [...] Organization Address City/State/[place] [address] ECHOCARDIOGRAM COMPLETE W CONTRAST (05/16/2022 12:49 PM EDT) athologist Signature EF 28 [facility] Anatomical Region Laterality Modality Cardiac Other Specimen (Source) Anatomical Collection Method Collection Time Re ceived Time Location / / Volume Laterality 05/16/2022 11:22 AM EDT Narrative 05/16/2022 1:54 PM EDT [facility] ?[address] ? [place] [address] ?Voice: ?Fax: ? Echocardiogram Report Name: KOKO ZAMORA ?Study Date: 05/16/2022 11:22 AM ? Patient Location: 3T 0303 B : 1940 ? Height: 67.5 in ? Account: [id number] Age: 81 yrs ? Weight: 176 lb Gender: Male ?BSA: 1.9 m2 Ordering Physician: FITO SUMMERS Referring Physician: MALI FLORIAN Performed By: Jolene Bernard RDCS Exam Location: [facility]. Interpretation Summary Left ventricle is mildly [...] and LV systolic dysfunction are new. Procedure Complete-[id number]. Image enhancement Optiso n was used for [...] note might be different from the original. [facility] [address] [place] [address] Voice: Fax: Echocardiogram Report Name: KOKO ZAMORA Study Date: 05/2022 11:22 AM Patient Location: [address] [place] [address] : 1940 Height: 67.5 in Account: [id number] Age: 81 yrs Weight: 176 lb Gender: Male BSA: 1.9 m2 Ordering Physician: FITO SUMMERS Referring Physician: MALI FLORIAN Performed By: Jolene Bernard RDCS Exam Location: [facility]. Interpretation Summary Left ventricle is mildly [...] and LV systolic dysfunction are new. Procedure Complete-[id number]. Image enhancement Optiso n was used for [...] Differential, Automated (05/16/2022 3:01 AM EDT) [facility] Method Time Signature Neutrophils % 78.8 % [facility] LABORATORY Neutr Abs (ANC) 9.11 (H) 1.70 - [facility] 6.10 [facility] x10(3)/[facility] LABORATORY Lymphocytes % 9.4 % [facility] LABORATORY Lymphocytes Abs 1.1 0.9 - 3.2 [facility](3[facility] LABORATORY Monocytes % 10.9 % [facility] LABORATORY Monocyte Abs 1.3 (H) 0.3 - 0.9 [facility] x10(3)/[facility] LABORATORY Eosinophils % 0.0 % [facility] LABORATORY Eosinophils Abs 0.0 0.0 - 0.4 [facility] x10(3)/[facility] LABORATORY Basophils % 0.3 % [facility] LABORATORY Basophils Abs 0.0 0.0 - 0.1 [facility] x10(3)/[facility] LABORATORY Immature Gran % 0.60 % [place] [...] Abs 0.07 (H) 0.00 - 0.04 x10(3)/[facility] LABORATORY Specimen Anatomical Collection Method Collection Time Receive d Time (Source) Location / / Volume Laterality Blood 05/16/2022 3:01 AM 3:36 EDT AM EDT Resulting Agency Comment Spec In Lab Erin Garza MD HEMATOLOGY ORDERABLES Performing Organization Address City/State/[place] [address] (ABNORMAL) Hemogram (05/16/2022 3:01 AM EDT) Analysis Performed At Patho logist Time Signature WBC 11.6 (H) 4.0 - 9.5 [facility] x10(3)/[facility] LABORATORY RBC 3.62 (L) 4.58 - [facility] 5.54 [facility] x10(6)/[facility] LABORATORY Hemoglobin 12.0 (L) 13.7 - [facility] 16.[facility] g/dL [facility]ATORY Hematocrit 35.3 (L) 40.5 - [facility] 48.5 % [facility] MCV 97.5 (H) 82.9 - [facility] 93.1 fL [facility]ATORY MCH 33.1 (H) 27.5 - [facility] 32.1 pg [facility] MCHC 34.0 32.0 - [facility] 35.7 g/dL [facility] Platelets 151 145 - 357 [facility] x10(3)/[facility] LABORATORY RDWSD 47.6 (H) 36.0 - [facility] 45.0 [facility] LABORATORY RDWCV 13.3 11.4 - [facility] 13.8 % [facility] LABORATORY MPV 10.5 7.6 - 12.9 [facility] LABORATORY nRBC % Auto 0.0 % [facility] LABORATORY nRBC Abs Auto 0.000 0.000 - [facility] 0.000 [facility] x10(3)/[facility] LABORATORY Specimen Anatomical Collection Method Collection Time Receive d Time (Source) Location / / Volume Laterality Blood 05/16/2022 3:01 AM 2 3:36 EDT AM EDT Resulting Agency Comment Spec In Lab Erin Garza MD HEMATOLOGY ORDERABLES Performing Organization Address City/[facility]/[place] [address] Phosphorus (05/16/2022 3:01 AM EDT) athologist Signature Phosphorus 3.7 2.5 - 4.5 [facility]dL [facility] LABORATORY Specimen Anatomical Collection Method Collection Time Receive d Time (Source) Location / / Volume Laterality Blood 05/16/2022 3:01 AM 2 3:36 EDT AM EDT Resulting Agency Comment Spec In Lab Fito Summers MD CHEMISTRY ORDERABLES Performing Organization Address City/[facility]/ZIP Code Phon e Number [address] Magnesium (05/16/2022 3:01 AM EDT) P athologist Signature Magnesium 0.77 0.69 - 1.07 [facility] mmol/L [facility] LABORATORY Specimen Anatomical Collection Method Collection Time Receive d Time (Source) Location / / Volume Laterality Blood 05/16/2022 3:01 AM 2 3:36 EDT AM EDT Resulting Agency Comment Spec In Lab Fito Summers MD CHEMISTRY ORDERABLES Performing Organization Address City/[facility]/[place] [address] (ABNORMAL) Basic Metabolic Panel (non-fasting) (05/16/2022 3:01 AM EDT) P athologist Signature Glucose Lvl 222 (H) 65 - 199 [facility] mg/dL [facility] LABORATORY Comment: Diabetes: >=200 mg/dL [...] Organization Address City/State/[place] [address] (ABNORMAL) BLOOD GAS 2 ARTERIAL (05/15/2022 3:33 PM EDT) Analysis Performed At Patho logist Time Signature pH Art 7.33 (L) 7.35 - [facility] 7.45 [facility] LABORATORY pCO2 Art 41 35 - 45 [facility] LABORATORY pO2 Art 131 (H) 85 - 104 [facility] LABORATORY HCO3 Art 21.1 20.0 - [facility] 26.0 [facility] mmol/L [facility] LABORATORY BE Art -4.8 (L) -3.0 - 3.0 [facility] mmol/L [facility] LABORATORY Hgb Blood Gas 13.4 (L) 13.7 - [facility] 16.5 g/dL [facility] LABORATORY O2HB Art 96.9 94.0 - [facility] 97.0 % [facility] LABORATORY COHB Art 1.4 % [facility] LABORATORY Comment: Nonsmokers: 0.5-1.5% COHB Smokers: Variable, but usually less than 10% Toxic: 20-30% COHB Lethal: Greater than 60% COHB METHB Art 0.3 <=1.5 % [facility] LABORATORY Na Whole Blood 139 135 [...] Organization Address City/State/[place] [address] (ABNORMAL) BLOOD GAS 2 ARTERIAL (05/15/2022 2:06 PM EDT) Analysis Performed At Patho logist Time Signature pH Art 7.39 7.35 - [facility] 7.45 [facility] LABORATORY pCO2 Art 35 35 - 45 [facility] mmHg [facility] LABORATORY pO2 Art 135 (H) 85 - 104 [facility] LABORATORY HCO3 Art 20.8 20.0 - [facility] 26.0 [facility] mmol/[facility] LABORATORY BE Art -4.2 (L) -3.0 - 3.0 [facility] mmol/L [facility] LABORATORY Hgb Blood Gas 14.5 13.7 - [facility] 16.5 g/dL [facility] O2HB Art 97.2 (H) 94.0 - [facility] 97.0 % [facility] LABORATORY COHB Art 1.2 % [facility] LABORATORY Comment: Nonsmokers: 0.5-1.5% COHB Smokers: Variable, but usually less than 10% Toxic: 20-30% COHB Lethal: Greater than 60% COHB METHB Art 0.3 <=1.5 % [facility] LABORATORY Na Whole Blood 140 135 [...] Torre MD CHEMISTRY ORDERABLES Performing Organization Address City/[facility]/ZIP Code Phon e Number [place] [id number]OS[address]ORY Drive (ABNORMAL) Prothrombin Time (05/15/2022 12:30 PM EDT) P athologist Signature PT 12.9 (H) 9.4 - 12.5 [facility] LABORATORY INR 1.1 [facility] [...] Morales DO HEMATOLOGY ORDERABLES Performing Organization Address City/[facility]/[place] [address] (ABNORMAL) APTT (05/15/2022 12:30 [...] Jhonny Morales HEMATOLOGY ORDERABLES Performing Organization Address City/[facility]/[place] [address] Gold Tube HOLD (05/15/2022 12:20 PM EDT) P athologist Signature Gold Hold Sample in [facility]. [facility] LABORATORY Specimen Anatomical Collection Method Collection Time Receive d Time (Source) Location / / Volume Laterality Blood No Charge / 05/15/2022 12:20 05/15/2022 Unknown PM EDT 12:20 PM EDT Lc TRIPP CHEMISTRY ORDERABLES Performing Organization Address City/[facility]/[place] [address] Type and Screen Validity (05/15/2022 12:00 PM EDT) [facility] [employer] Method Time Signature T&S only valid [facility] Hosp [facility] LABORATORY Comment: This Type and Screen result is only valid at the [facility] Hospital Specimen Anatomical Collection Method Collection Time Receive d Time (Source) Location / / Volume Laterality Blood 05/15/2022 12:00 05/15/2022 PM EDT 12:17 PM EDT Resulting Agency Comment Spec In Lab Lc TRIPP BLOOD BANK ORDERABLES Performing Organization Address City/[facility]/ZIP Code Phon e Number [address] ABORH Recheck Status (05/15/2022 12:00 PM EDT) [facility] [employer] Method Time Signature ABORH Recheck Order Placed [facility] LABORATORY ABORH Type Complete [facility] LABORATORY Specimen Anatomical Collection Method Collection Time Receive d Time (Source) Location / / Volume Laterality Blood 05/15/2022 12:00 05/15/2022 PM EDT 12:17 PM EDT Resulting Agency Comment Spec In Lab Lc TRIPP BLOOD BANK ORDERABLES Performing Organization Address City/State/[place] [address] CK (05/15/2022 12:00 PM EDT) P athologist Signature CK, Total 87 0 - 200 [facility] unit/L [facility] LABORATORY Specimen Anatomical Collection Method Collection Time Receive d Time (Source) Location / / Volume Laterality Blood Venous Draw / 05/15/2022 12:00 05/15/2022 Unknown PM EDT 12:19 PM EDT Resulting Agency Comment Spec In Lab Fito Summers MD CHEMISTRY ORDERABLES Performing Organization Address City/[facility]/[place] [address] Antibody screen (05/15/2022 12:00 PM EDT) [facility] Method Time Signature Ab Screen Negative [facility] LABORATORY Expires at 05/18/2022 [facility] 2359 on: [facility] LABORATORY Specimen Anatomical Collection Method Collection Time Receive d Time (Source) Location / / Volume Laterality Blood 05/15/2022 12:00 05/15/2022 PM EDT 12:17 PM EDT Resulting Agency Comment Spec In Lab Lc Dominick Kimberly TRIPP BLOOD BANK ORDERABLES Performing Organization Address City/[facility]/[place] [address] ABO/Rh Typing (05/15/2022 12:00 PM EDT) P athologist Signature ABORh Type O Pos [facility] LABORATORY Specimen Anatomical Collection Method Collection Time Receive d Time (Source) Location / / Volume Laterality Blood 05/15/2022 12:00 05/15/2022 PM EDT 12:17 PM EDT Resulting Agency Comment Spec In Lab Lc Dominick Kimberly TRIPP BLOOD BANK ORDERABLES Performing Organization Address City/[facility]/[place] [address] (ABNORMAL) Differential, Automated (05/15/2022 12:00 PM EDT) [facility] Method Time Signature Neutrophils % 79.4 % [facility] LABORATORY Neutr Abs (ANC) 7.49 (H) 1.70 - [facility] 6.10 [facility] x10(3)/[facility] LABORATORY Lymphocytes % 11.3 % [facility] LABORATORY Lymphocytes Abs 1.1 0.9 - 3.2 [facility] x10(3)/[facility] LABORATORY Monocytes % 7.8 % [facility] LABORATORY Monocyte Abs 0.7 0.3 - 0.9 [facility] x10(3)/[facility] LABORATORY Eosinophils % 0.6 % [facility] LABORATORY Eosinophils Abs 0.1 0.0 - 0.4 [facility] x10(3)/[facility] LABORATORY Basophils % 0.6 % [facility] LABORATORY Basophils Abs 0.1 0.0 - 0.1 [facility] x10(3)/[facility] LABORATORY Immature Gran % 0.30 % [place] [...] Rain Gran Abs 0.03 0.00 - 0.04 x10(3)/[facility] MAR Y [facility] LABORATORY Specimen Anatomical Collection Method Collection Time Receive d Time (Source) Location / / Volume Laterality Blood 05/15/2022 12:00 05/15/2022 PM EDT 12:19 PM EDT Resulting Agency Comment Spec In Lab Lc TRIPP HEMATOLOGY ORDERABLES Performing Organization Address City/State/[place] [address] (ABNORMAL) Hemogram (05/15/2022 12:00 PM EDT) Analysis Performed At [facility] logist Time Signature WBC 9.4 4.0 - 9.5 [facility] x10(3)/[facility] LABORATORY RBC 4.48 (L) 4.58 - [facility] FAYE 5.54 [facility] x10(6)/[facility] LABORATORY Hemoglobin 14.5 13.7 - [facility] 16.5 g/dL [facility] LAB[facility]ATORY Hematocrit 42.4 40.5 - [facility] 48.5 % [facility] LABORATORY MCV 94.6 (H) 82.9 - [facility] 93.1 [facility] LABORATORY MCH 32.4 (H) 27.5 - [facility] 32.1 pg [facility] LABORATORY MCHC 34.2 32.0 - [facility] 35.7 g/dL [facility] LABORATORY Platelets 209 145 - 357 [facility] x10(3)/[facility] LABORATORY RDWSD 45.9 (H) 36.0 - [facility] 45.0 [facility] LABORATORY RDWCV 13.1 11.4 - [facility] 13.8 % [facility] LABORATORY MPV 10.5 7.6 - 12.9 [facility] LABORATORY nRBC % Auto 0.0 % [facility] LABORATORY nRBC Abs Auto 0.000 0.000 - [facility] 0.000 [facility] x10(3)/[facility] LABORATORY Specimen Anatomical Collection Method Collection Time Receive d Time (Source) Location / / Volume Laterality Blood 05/15/2022 12:00 05/15/2022 PM EDT 12:19 PM EDT Resulting Agency Comment Spec In Lab Lc TRIPP HEMATOLOGY ORDERABLES Performing Organization Address City/State/[place] [address] (ABNORMAL) Basic Metabolic Panel (non-fasting) (05/15/2022 12:00 PM EDT) athologist Signature Glucose Lvl 203 (H) 65 - 199 [facility] mg/dL [facility] LABORATORY Comment: Diabetes: >=200 mg/dL plus symp toms BUN 16 10 - 20 mg/dL [facility] LABORATORY Creatinine 0.84 0.80 - 1.50 mg/dL [facility] OCK [facility] LABORATORY Sodium 141 135 - 145 mmol/L [...] Organization Address City/State/[place] [address] documented in this encounter [...] (Given - Provider: Barbie Joyce , RN)1750 ([facility] Hold - Provider: Admin Adt - Reason: Transfer to a Procedural area)1955 ([facility] Unhold - Provider: Admin Adt) 15 (Given - Provider: Etta contreras RN) 1,000 mcg, Oral, DAILY, First dose on 05/16/22 at 0900, Until Discontinued, Routine metoprolol tartrate (Lopressor) tablet 12.5 mg (CANCEL ED) 0838 (Given - Provider: Caroline Zamora, DION)2008 (Given - Provider: Nuris Lester RN) 0853 (Given - Provider: Barbie Joyce RN)1750 ([facility] Hold - Provider: Admin Adt - Reason: Transfer to a Procedural area)1955 ([facility] Unhold - Provider: Admin Adt)2004 (Given [...] (Given - Provider: Barbie Joyce , DION)1750 ([facility] Hold - Provider: Admin Adt - Reason: Transfer to a Procedural area)1955 ([facility] Unhold - Provider: Admin Adt) 0816 [...] (Given - Provider: Barbie Joyce RN)1750 ([facility] Hold - Provider: Admin Adt - Reason: Transfer to a Procedural area)1955 ([facility] Unhold - Provider: Admin Adt) 0817 (Given - Provider: Etta contreras RN) 0.4 mg, Oral, DAILY, First dose on Fri at 0900, Until Discontinued, DO NOT CRUSH OR OPEN, Routine thiamine (Vitamin B1) tablet 100 mg 0838 (Given - Prov ider: Caroline Zamora RN) 0853 (Given - Provider: Barbie Joyce RN)1750 ([facility] Hold - Provider: Admin Adt - Reason: Transfer to a Procedural area)1955 ([facility] Unhold - Provider: Admin Adt) 0816 (Given - Provider: Etta contreras RN) 100 mg, Oral, DAILY, First dose on Fri at 0900, Until Discontinued, Routine valsartan (Diovan) tablet 40 mg 0838 (Given - Provider : Caroline Zamora, DION)2008 (Given - Provider: Nuris Lester RN) 0853 (Given - Provider: Barbie Joyce RN)1750 ([facility] Hold - Provider: Admin Adt - Reason: Transfer to a Procedural area)1955 ([facility] Unhold - Provider: Admin Adt)2005 (Given [...] Reason: Transfer to a Procedural area)1955 ([facility] Unhold - Provider: Admin Adt) 5-10 [...]
Routine documented in this encounter Care Teams Consulting Practice Director Relationship Specialty Start Date End Date Bobby Das MD PCP - General 10/02/[address] [place] [address] [place] [address] documented as of this encounter
--- OUTSIDE RECORDS SUMMARY | 2022-07-26 10:54 | XMS_ITS | Encounter Summary ---
:1940 Author Organization [facility] [address] Care Team Providers Name Role Phone Bobby Das MD Primary Care Provider Reason for Referral Diagnostic Test (Routine) - Closed Specialty Diagnoses / Procedures Referred By Contact Refer red To Contact Radiology Diagnoses Compression fracture of T9 vertebra, initial encounter Alphonso Esquivel, DO [facility] Interventionl Rad Procedures IR Vertebroplasty Thoracic Single Level [facility] [place] [address] [place] [address] Referral ID Status Reason Start Date Expiration Date Visits V isits Requested Authorized [id number] Closed Specialty 10/13/2020 04/13/2022 1 1 Service Requested Encounter Details Date Type Department Care Team Description 10/13/2020 Orders Only Radiology at [facility] Alphonso Esquivel, Compression fracture [facility] DO of T9 vertebra, Drive [facility] [place] [address] DIAGNOSTIC RADIOLOGY [place], [place] [address] Social History Tobacco Use Types [...] [facility] DR GASTROENTEROLOGY DEPT [place], [place] [address] (Wo rk) 09/05/2022 Appointment Cardiology Trinity Reid MD [facility] CARDIOLOGY [place], [place] [address] (Wo rk) 09/05/2022 Office Visit Cardiology Trinity Reid MD [facility] CARDIOLOGY [place], [place] [address] (Wo rk) documented as of [...] made and a 13g a introducer needle (Ifinity) was advanced through the right pedicle and t o the ??T9 vertebral body during an intermittent fluoroscopic guidance. The Ifinity biopsy cannula was advanced through the introducer [...] was made and a 13ga introducer needle (Ecrio) was advanced through the left pedicle and [...] made and a 13g a introducer needle (Ifinity) was advanced through the right pedicle and t o the T9 vertebral body during an intermittent fluoroscopic guidance. The Ifinity biopsy cannula was advanced through the introducer [...] was made and a 13ga introducer needle (Ecrio) was advanced through the left pedicle and [...] 12.5 [facility] LABORATORY INR 1.0 [facility] [...] Organization Address City/State/[place] [address] Platelet count (10/25/2020 6:35 AM EST) athologist Signature Platelets 192 145 - 357 [facility] x10(3)/[facility] LABORATORY Plat Immature 2.6 0.0 - 7.4 [facility] % % [facility] LABORATORY Comment: Limitation of the Immature Platelet Frac tion (IPF)-May be less reliable when the platelet count is less than 19a882/u L due to statistical imprecision. The IPF [...] in a decreased state of production. References: [employer] The Clinical Value of the Immature Platelet Fraction (IPF) in Cell Recovery Document Number 10-1143 04/2011 [employer] The Role of the Imm ature [...] Address City/State/[place] [address] documented in this encounter Visit Diagnoses Diagnosis Compression fracture of T9 vertebra, ini tial encounter Compression fracture of T9 vertebra, ini tial encounter documented in this encounter Care Teams Literacy Specialist Relationship Specialty Start Date End Date Bobby Das MD PCP - General 10/02/[address] [place] [address] [place] [id number] documented as of this encounter
--- OUTSIDE RECORDS SUMMARY | 2022-07-26 10:54 | XMS_ITS | Encounter Summary ---
:1940 Author Organization [facility] [place] [address] Care Team Providers Name Role Phone Bobby Das MD Primary Care Provider Reason for Referral Diagnostic Test (Routine) - Closed Specialty Diagnoses / Procedures Referred By Contact Refer red To Contact Radiology Diagnoses Compression fracture of T9 vertebra, initial encounter Alphonso Esquivel DO [facility] Interventionl Rad Procedures IR Vertebroplasty Thoracic [facility] [place] [address] [place] [address] Referral ID Status Reason Start Date Expiration Date Visits V isits Requested Authorized [id number] Closed Specialty 10/13/2020 04/13/2022 1 1 Service Requested Reason for Visit Diagnostic Test (Routine) - Closed Specialty Diagnoses / Procedures Referred By Contact Refer red To Contact Radiology Diagnoses Compression fracture of T9 vertebra, initial encounter Alphonso Esquivel DO [facility] Interventionl Rad Procedures IR Vertebroplasty Thoracic [facility] [place] [address] [place] [address] Referral ID Status Reason Start Date Expiration Date Visits V isits Requested Authorized [id number] Closed Specialty 10/13/2020 04/13/2022 1 1 Service Requested Encounter Details Date Type Department Care Team Description 10/25/2020 Hospital Encounter Radiology at [facility] Esquivel, Alphonso R, Compression fracture [facility] DO of T9 vertebra, Drive [facility] initial encounter [place], [place] CENTER [address] DIAGNOSTIC [phone] [place] [address] Social History Tobacco Use Types Packs/Day Years [...] Vargas RN - 10/25/2020 9:13 AM EST [facility] Discharge Instructions for Vertebroplasty Your [...] is during regular office hours, please call [phone]. If it is after regular office hours, oron weekends or holidays, please call [phone] and ask to speak to the [employer] Machine Operator on callfor Interventional Radiology. XXX [...] of : 1940 AGE: 80 y.o. Address: [address] [place] [address] (home) Mobile: No relevant phone numbers on file. Referring Provider: Alphonso Esquivel REASON FOR VISIT: Order Questions Answers Where will study be performed? [facility] Radiology [120] Is the patient on [...] Negra Collins MD [facility] GASTROENTEROLOGY DEPT [place], [place] [address] (Wo rk) 09/05/2022 Appointment Cardiology Trinity Redi MD [facility] CARDIOLOGY [place], [place] [address] (Wo rk) 09/05/2022 Office Visit Cardiology Trinity Reid MD [facility] CARDIOLOGY [place], [place] [address] (Wo rk) [...] made and a 13g a introducer needle (Kapture) was advanced through the right pedicle and t o the ??T9 vertebral body during an intermittent fluoroscopic guidance. The Kapture biopsy cannula was advanced through the introducer [...] was made and a 13ga introducer needle (Noovo) was advanced through the left pedicle and [...] the interservice administration of fentanyl and [facility] continuous monitoring of blood pressure, [...] made and a 13g a introducer needle (Kapture) was advanced through the right pedicle and t o the T9 vertebral body during an intermittent fluoroscopic guidance. The Clio biopsy cannula was advanced through the introducer [...] was made and a 13ga introducer needle (Noovo) was advanced through the left pedicle and [...] [facility] Method Time Signature Surgical [id number] ? Location: [address] [place] [address] Pathology [place] Report The signing pathologist has (i) examined [...] Bone & Soft Tissue Pathologist Performed at: ??-[facility] Dept. of Pathology, [place], [place] DISCUSSION I see no neoplastic process [...] DO PATHOLOGY/CYTOLOGY ORDERABLE S Performing Organization Address City/[facility]/ZIP [place] [address] Specimen to Pathology (10/25/2020 8:26 AM EST) Specimen Anatomical Collection Method Collection Time Receive d Time (Source) Location / / Volume Laterality AP Specimen 10/25/2020 8:26 AM 0 8:26 EST AM EST Narrative [facility] LABOR[facility] OR[facility] - 10/25/2020 8:26 AM EST Specimen requisition ordered. ??Separate Pathology report to follow Alphonso Esquivel DO PATHOLOGY/CYTOLOGY ORDERABLE S Performing Organization Address City/[facility] Code Phon e Number [address] documented in this encounter [...] Procedure) documented in this encounter Care Teams Administrative Services Coordinator Relationship Specialty Start Date End Date Bobby Das MD PCP - General 10/02/[address] [place] [address] [place] [address] documented as of this encounter
--- OUTSIDE RECORDS SUMMARY | 2022-07-26 10:54 | XMS_ITS | Encounter Summary ---
:1940 Author [place] [address] Care Team Providers Name Role Phone Bobby Das MD Primary Care Provider Encounter Details Date Type Department Care Team Description 07/13/2019 Orders Only Radiology Alan Brink Gastrointestinal [facility] MD Rosa hemorrhage, unspecified [facility] DR hemorrhage type (Primary [id number] RADIOLOGY DEPT Dx) [phone] [place], [place] [address] Social History Tobacco Use Types Packs/Day Years Used Date Current Some Day Smoker Cigarettes 1 50 Smokeless Tobacco: Never Used Sex Assigned at Date Recorded Not on file documented as of this encounter Progress Notes Alan Brink - 07/13/2019 5:00 PM EDT Images from the original note were not included. INTERVENTIONAL NEURORADIOLOGY FOCUSED H&P and PRE-PROCEDURE NOTE: PCP: Bobby aDs MD Referring Provider: Zbigniew Thompson (Spine center) [...] MD [facility] GASTROENTEROLOGY DEPT [place], [place] [address] (Wo rk) 09/05/2022 Appointment Cardiology Trinity Reid MD [facility] [place]ARDIOLOGY [place], [place] [address] (Wo rk) 09/05/2022 Office Visit Cardiology Trinity Reid MD [facility] [place]ARDIOLOGY [place], [place] [address] (Wo rk) documented as of this encounter Results Prothrombin Time (07/20/2019 8:18 AM EDT) P athologist Signature PT 11.3 9.4 - 12.5 [facility] INR 1.0 [facility] [...] Organization Address City/State/[place] [address] (ABNORMAL) Hemogram (07/20/2019 8:18 AM EDT) Analysis Performed At Patho logist Time Signature WBC 6.0 4.0 - 9.5 [facility] x10(3)/[facility] LABORATORY RBC 4.50 (L) 4.58 - [facility] 5.54 [facility] x10(6)/[facility] LABORATORY Hemoglobin 14.8 13.7 - [facility] 16.5 gm/dL [facility] LABORATORY Hematocrit 43.9 40.5 - [facility] 48.5 % [facility] LABORATORY MCV 97.6 (H) 82.9 - [facility] 93.1 fL [facility] LABORATORY MCH 32.9 (H) 27.5 - [facility] 32.1 pg [facility] LABORATORY MCHC 33.7 32.0 - [facility] 35.7 gm/dL [facility] LABORATORY Platelets 164 145 - 357 [facility] x10(3)/[facility] LABORATORY RDWSD 49.3 (H) 36.0 - [facility] 45.0 [facility] LABORATORY RDWCV 13.6 11.4 - [facility] 13.8 % [facility] LABORATORY MPV 10.0 7.6 - 12.9 [facility] LABORATORY nRBC % Auto 0.0 % [facility] LABORATORY nRBC Abs Auto 0.000 0.000 - [facility] 0.000 [facility] x10(3)/[facility] LABORATORY Specimen Anatomical Collection Method Collection Time Receive d Time (Source) Location / / Volume Laterality Blood specimen 07/20/2019 8:18 AM 019 8:21 (specimen) EDT AM EDT Resulting Agency Comment Spec In Lab Bobby Marshall MD HEMATOLOGY ORDERABLES Performing Organization Address City/State/[place] [address] documented in this encounter Visit Diagnoses Diagnosis Gastrointestinal hemorrhage, unspecified gastrointestinal hemorrhage type - Primary documented in this encounter Care Teams Textile Artist Relationship Specialty Start Date End Date Bobby Das MD PCP - General 10/02/[address] [place] [address] [place] [phone] documented as of this encounter
--- OUTSIDE RECORDS SUMMARY | 2022-07-26 10:54 | XMS_ITS | Encounter Summary ---
:1940 Author Organization [facility] [place] [address] Care Team Providers Name Role Phone Bobby Das MD Primary Care Provider Encounter Details Date Type Department Care Team Description 09/18/2018 Telephone Dermatology at [facility] Yolanda Fraser RN [address] [place] [address] Social History Tobacco Use Types Packs/Day [...] Who lives with patient (i.e. spouse, children, alf/custodial)? Spouse Relevant travel history or future plans: [...] MD [facility] GASTROENTEROLOGY DEPT [place], [place] [address] (Wo rk) 09/05/2022 Appointment Cardiology Trinity Reid MD [facility] CARDIOLOGY [place], [place] [address] (Wo rk) 09/05/2022 Office Visit Cardiology Trinity Reid MD [facility] CARDIOLOGY [place], [place] [address] (Wo rk) documented as of this encounter Visit Diagnoses Not on filedocumented in this encounter Care Teams Gold Wheel Blocker And Polisher Relationship Specialty Start Date End Date Bobby Das MD PCP - General 10/02/[address] [place] [address] [place] [phone] documented as of this encounter
--- OUTSIDE RECORDS SUMMARY | 2022-07-26 10:54 | XMS_ITS | Encounter Summary ---
:1940 Author Organization [facility] Address [facility] [place] [address] Care Team Providers Name Role Phone Bobby Das MD Primary Care Provider Reason for Visit - Closed Specialty Diagnoses / Procedures Referred By Contact Refer red To Contact Procedures Bobby Das MD Film Library- Storage Only MR Her[facility] [place] [address] Referral ID Status Reason Start Date Expiration Date Visits Requ ested Visits Authorized [id number] Closed 02/23/2021 02/23/2022 1 1 Encounter Details Date Type Department Care Team Description 03/16/2020 Ancillary Procedure Radiology Library at Bobby Almaguer MD [address] [phone] [phone] (Rebekah rojas) Social History Tobacco Use Types [...] Collins MD [facility] GASTROENTEROLOGY DEPT [place], [place] [address] (Wo rk) 09/05/2022 Appointment Cardiology Trinity Reid MD [facility] CARDIOLOGY [place], [place] [address] (Wo rk) 09/05/2022 Office Visit Cardiology Trinity Reid MD [facility] CARDIOLOGY [place], [place] [address] (Wo rk) documented as of [...] Organization Address City/State/ZIP Code Phon e Number [place], [place] documented in this encounter Visit Diagnoses Not on filedocumented in this encounter Care Teams Cellulose Insulation Helper Relationship Specialty Start Date End Date Bobby Das MD PCP - General 10/02/[address] [place] [address] [place] [address] documented as of this encounter
--- OUTSIDE RECORDS SUMMARY | 2022-07-26 10:54 | XMS_ITS | Encounter Summary ---
:1940 Author Organization [facility] [place] [address] Care Team Providers Name Role Phone Bobby Das MD Primary Care Provider Encounter Details Date Type Department Care Team Description 06/26/2018 Ancillary Procedure Radiology Library at Bobby Almaguer MD [facility] [address] [place] [phone] (Wo rk) Social History Tobacco Use Types Packs/Day Years Used Date Current Some Day Smoker 1 50 Smokeless Tobacco: Never Used Sex Assigned at Date Recorded Not on file documented as of this encounter Plan of Treatment Upcoming Encounters Date Type Specialty Care Team Description 08/08/2022 Office Visit Gastroenterology Negra Collins MD [facility] DR GASTROENTEROLOGY DEPT [place], [place] [address] (Wo rk) 09/05/2022 Appointment Cardiology Trinity Reid MD [facility] CARDIOLOGY [place], [place] [address] (Wo rk) 09/05/2022 Office Visit Cardiology Trinity Reid MD [facility] CARDIOLOGY [place], [place] [address] (Wo rk) documented as of [...] Organization Address City/State/ZIP Code Phon e Number [place], [place] documented in this encounter Visit Diagnoses Not on filedocumented in this encounter Care Teams Chemical Operations Specialist Relationship Specialty Start Date End Date Bobby Das MD PCP - General 10/02/[address] [place] [address] [place] [address] documented as of this encounter
--- OUTSIDE RECORDS SUMMARY | 2022-07-26 10:54 | XMS_ITS | Encounter Summary ---
:1940 Author Organization [facility] [place] [address] Care Team Providers Name Role Phone Bobby Das MD Primary Care Provider Encounter Details Date Type Department Care Team Description 12/16/2016 [facility] [place] [address] Social History Tobacco Use Types Packs/Day [...] [facility] GASTROENTEROLOGY DEPT [place], [place] [address] (Wo rk) 09/05/2022 Appointment Cardiology Trinity Reid MD [facility] CARDIOLOGY [place], [place] [address] (Wo rk) 09/05/2022 Office Visit Cardiology Trinity Reid MD [facility] CARDIOLOGY [place], [place] [address] (Wo rk) documented as of this encounter Visit Diagnoses Not on filedocumented in this encounter Care Teams Trailer Driver Relationship Specialty Start Date End Date Bobby Das MD PCP - General 10/02/[address] [place] [address] [place] [phone] documented as of this encounter
--- OUTSIDE RECORDS SUMMARY | 2022-07-26 10:54 | XMS_ITS | Encounter Summary ---
:1940 Author Organization [facility] [place] [address] Care Team Providers Name Role Phone Bobby Das MD Primary Care Provider Encounter Details Date Type Department Care Team Description 08/06/2020 Ancillary Procedure Radiology at [facility] Amy Grimaldo [address] [place] [address] [address] [phone] NEUROSURGERY-N Jovanny [place], [place] [address] Social History Tobacco Use Types [...] MD [facility] GASTROENTEROLOGY DEPT [place], [place] [address] (Wo rk) 09/05/2022 Appointment Cardiology Trinity Reid MD [facility] CARDIOLOGY [place], [place] [address] (Wo rk) 09/05/2022 Office Visit Cardiology Trinity Reid MD [facility] CARDIOLOGY [place], [place] [address] (Wo rk) documented as of [...] Organization Address City/State/ZIP Code Phon e Number [place], [place] documented in this encounter Visit Diagnoses Not on filedocumented in this encounter Care Teams Us Marketing Director Relationship Specialty Start Date End Date Bobby Das MD PCP - General 10/02/[address] [place] [address] [place] [phone] documented as of this encounter
--- OUTSIDE RECORDS SUMMARY | 2022-07-26 10:54 | XMS_ITS | Encounter Summary ---
:1940 Author Organization [facility] [place] [address] Care Team Providers Name Role Phone Bobby Das MD Primary Care Provider Encounter Details Date Type Department Care Team Description 07/20/2019 Laboratory Lab 3L Ifrah Gastrointestina l Appointment [facility] hemorrhag e, unspecified Hospital gastrointestinal [facility] [place] [phone] Social History Tobacco Use Types Packs/Day Years [...] MD [facility] DR GASTROENTEROLOGY DEPT [place], [place] [address] (Wo rk) 09/05/2022 Appointment Cardiology Trinity Reid MD [facility] CARDIOLOGY [place], [place] [address] (Wo rk) 09/05/2022 Office Visit Cardiology Trinity Reid MD [facility] CARDIOLOGY [place], [place] [address] (Wo rk) documented as of this encounter Procedures Procedure Name Priority Date/Time Associated Diagnosis Comme [facility] HEMOGRAM Routine 07/20/2019 8:18 Gastrointestinal Results for [...] Time Signature WBC 6.0 4.0 - 9.5 [facility] x[facility](3[facility] LABORATORY RBC 4.50 (L) 4.58 - [facility] 5.54 [facility] x10(6)/[facility] LABORATORY Hemoglobin 14.8 13.7 - [facility] 16.5 gm/dL [facility] LABORATORY Hematocrit 43.9 40.5 - [facility] 48.5 % [facility] LABORATORY MCV 97.6 (H) 82.9 - [facility] 93.1 [facility] LABORATORY MCH 32.9 (H) 27.5 - [facility] 32.1 pg [facility] LABORATORY MCHC 33.7 32.0 - [facility] 35.7 gm/dL [facility] LABORATORY Platelets 164 145 - 357 [facility] x10(3)/[facility] LABORATORY RDWSD 49.3 (H) 36.0 - [facility] 45.0 [facility] LABORATORY RDWCV 13.6 11.4 - [facility] 13.8 % [facility] LABORATORY MPV 10.0 7.6 - 12.9 [facility] LABORATORY nRBC % Auto 0.0 % [facility] LABORATORY nRBC Abs Auto 0.000 0.000 - [facility] 0.000 [facility] x10(3)/[facility] LABORATORY Specimen Anatomical Collection Method Collection Time Receive d Time (Source) Location / / Volume Laterality Blood specimen 07/20/2019 8:18 AM 019 8:21 (specimen) EDT AM EDT Resulting Agency Comment Spec In Lab Bobby Marshall MD HEMATOLOGY ORDERABLES Performing Organization Address City/State/ZIP [place] [address] Prothrombin Time (07/20/2019 8:18 AM EDT) P athologist Signature PT 11.3 9.4 - 12.5 [facility] LABORATORY INR 1.0 [facility] LABORATORY [...] Organization Address City/State/ZIP [place] [address] documented in this encounter Visit Diagnoses Diagnosis Gastrointestinal hemorrhage, unspecified gastrointestinal hemorrhage type documented in this encounter Care Teams Facilities Technician Relationship Specialty Start Date End Date Bobby Das MD PCP - General 10/02/[address] [place] [address] Dr [place], [place] [address] documented as of this encounter
--- OUTSIDE RECORDS SUMMARY | 2022-07-26 10:54 | XMS_ITS | Encounter Summary ---
:1940 [place] [address] Care Team Providers Name Role Phone oBbby Das MD Primary Care Provider Reason for Visit Reason Comments Wound Check Encounter Details Date Type Department Care Team Description 10/25/2015 Clinical Support Dermatology at Christine Gonzalez MD Follow up [facility] [address] [facility] [place] [address] [place] [address] [phone] (Wo rk) Social History Tobacco Use Types Packs/Day Years Used Date Current Some Day Smoker 1 50 Smokeless Tobacco: Never Used Sex Assigned at Date Recorded Not on file documented as of this encounter Progress Notes Leo Solo MD - 10/25/2015 1:01 PM EST CC: Wound check HPI: Patient is a 75 y.o. 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 Denies complications. States when he blinks he can feel the scar tissue. ROS: Otherwise well. No other skin complaints. Exam: General: No acute distress Skin: Limited examination of right confucianist shows a well-healed flap with hypertrophy at the edge. Assessment and Plan 1. Basal cell carcinoma, right confucianist, s/p Mohs, repaired by transposition flap Kenalog [...] [facility] DR GASTROENTEROLOGY DEPT [place], [place] [address] (Wo rk) 09/05/2022 Appointment Cardiology Trinity Reid MD [facility] CARDIOLOGY [place], [place] [address] (Wo rk) 09/05/2022 Office Visit Cardiology Trinity Reid MD [facility] CARDIOLOGY [place], [place] [address] (Wo rk) documented as of this encounter Visit Diagnoses Diagnosis Follow up documented in this encounter Care Teams Dog Daycare Provider Relationship Specialty Start Date End Date Bobby Das MD PCP - General 10/02/[address] [place] [address] [place] [phone] documented as of this encounter
--- OUTSIDE RECORDS SUMMARY | 2022-07-26 10:54 | XMS_ITS | Encounter Summary ---
:1940 Author Organization [facility] [place] [address] Care Team Providers Name Role Phone Bobby Das MD Primary Care Provider Reason for Visit Reason Comments Basal Cell Carcinoma Encounter Details Date Type Department Care Team Description 08/08/2015 [facility] (basal cell Road MD carcinoma of skin) [address] [place] [address] [facility] [place] [place] [address] Social History Tobacco Use Types [...] Our facility does not offer a guest Hub[employer]-DNS:Net network at this time. We also recommend [...] specified we require that you have a laborer driver, as surgery can be stressful and tiring. If you are being transported from a half-way or other similar facility, we request that someone stay with you during this appointment. We are located in the [facility] [place], [place]. Please refer to the [facility] website for detailed driving directions ([email or web address]). When you arrive, please park in the [...] If this fails, contact our office at [phone] (after 5PM please call [phone] and ask for the Brickmason Apprentice fiction and nonfiction author). Avoid bending over, heavy lifting (no greater [...] are taking. Our office phone number is [phone]. documented in this encounter Progress Notes Leo Solo MD - 08/08/2015 1:50 PM EDT [facility] SURGICAL CONSULT Chief Complaint: Basal cell carcinoma History of Present Illness: Referring Physician: Dr. Zheng, [facility] (07/03/15) Tumor type: BCC Location of Skin Cancer: Right confucianism Duration of Presence: 1 year Previous Treatment: [...] acute distress. Skin: Limited examination of right confucianism reveals a 5 mm erythematous papule. Assessment and Plan 1. BCC, right confucianism Reviewed treament options including wide local excision, [...] Negra Collins MD [facility] DR GASTROENTEROLOGY DEPT [place], [place] [address] (Wo rk) 09/05/2022 Appointment Cardiology Trinity Reid MD [facility] CARDIOLOGY [place], [place] [address] (Wo rk) 09/05/2022 Office Visit Cardiology Trinity Reid MD [facility] CARDIOLOGY [place], [place] [address] (Wo rk) documented as of this encounter Visit Diagnoses Diagnosis BCC (basal cell carcinoma of skin) Basal cell carcinoma of skin, site unspe cified documented in this encounter Care Teams Tram Driver Relationship Specialty Start Date End Date Bobby Das MD PCP - General 10/02/[address] [place] [address] [place] [phone] documented as of this encounter
--- OUTSIDE RECORDS SUMMARY | 2022-07-26 10:54 | XMS_ITS | Encounter Summary ---
:1940 Author Organization [facility] [place] [address] Care Team Providers Name Role Phone Bobby Das MD Primary Care Provider Reason for Referral Diagnostic Test (Routine) - Closed Specialty Diagnoses / Procedures Referred By Contact Refer red To Contact Radiology Diagnoses 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, sequela Closed compression fracture of L1 lumbar vertebra with delayed healing, subsequent encounter Malignant neoplasm of prostate Zbigniew Thompson PA [facility] Interventionl Rad Procedures IR Vertebroplasty Lumbar Multiple Levels IR Vertebral Augmentation Lumbar Single [place] [address] [place] [address] Fax: Referral ID Status Reason Start Date Expiration Date Visits V isits Requested Authorized [id number] Closed Specialty 07/13/2019 07/12/2020 1 1 Service Requested iagnostic Test (Routine) - Closed Specialty Diagnoses / Procedures Referred By Contact Refer red To Contact Radiology Diagnoses Closed compression fracture of L1 lumbar vertebra with delayed healing, subsequent encounter Malignant neoplasm of prostate Zbigniew Thompson PA [facility] Interventionl Rad Procedures [place] [address] [place] [address] Fax: Referral ID Status Reason Start Date Expiration Date Visits V isits Requested Authorized [id number] Closed Specialty 07/13/2019 07/12/2020 1 1 Service Requested Reason for Visit Reason Comments Back Pain Consultation (ANDREINA) - Closed Specialty Diagnoses / Procedures Referred By Contact Refer red To Contact [facility] Diagnoses Collapsed vertebra, not elsewhere classified, lumbar region, subsequent encounter for fracture with routine healing Bobby Das MD [facility] Pain And [facility] [address] [place], [place] Drive [address] [place] [address] Phone: Fax: Referral ID Status Reason Start Date Expiration Date Visits V isits Requested Authorized [id number] Closed Consult, 06/30/2019 06/29/2020 1 1 [facility] Encounter Details Date Type Department Care Team Description 07/13/2019 Office Visit [facility] Zbigniew Thompson, Closed compression fracture of L1 lumbar vertebra with delayed healing, subsequent encounter; at [facility] Malignant neoplasm of prostate; [facility] Age -related 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, sequela [address] [place] [address] [phone] Social History Tobacco Use Types Packs/Day Years [...] edema suggesting an old healed injury. Assessment/plan: Kook Zamora is a 78-year-old gentleman I [...] [facility] DR GASTROENTEROLOGY DEPT [place], [place] [address] (Wo rk) 09/05/2022 Appointment Cardiology Trinity Reid MD [facility] CARDIOLOGY [place], [place] [address] (Wo rk) 09/05/2022 Office Visit Cardiology Trinity Reid MD [facility] CARDIOLOGY [place], [place] [address] (Wo rk) documented as [...] made and a 13g a introducer needle (Ruzuku) was advanced through the right pedicle and [...] made an d a 13ga introducer needle (Ruzuku) was advanced through the left pedicle and [...] Sullivan MD, [facility] ([phone]), at 07/20/2019 1:20 PM Procedure Note Bobby [...] made and a 13g a introducer needle (Ruzuku) was advanced through the right pedicle and [...] made an d a 13ga introducer needle (Ruzuku) was advanced through the left pedicle and [...] made and a 13g a introducer needle (Ruzuku) was advanced through the right pedicle and [...] made an d a 13ga introducer needle (Ruzuku) was advanced through the left pedicle and [...] Sullivan MD, [facility] ([phone]), at 07/20/2019 1:20 PM Procedure Note Bobby [...] made and a 13g a introducer needle (Ruzuku) was advanced through the right pedicle and [...] made an d a 13ga introducer needle (Ruzuku) was advanced through the left pedicle and [...] Sullivan MD, [facility] ([phone]), at 07/20/2019 1:20 PM Elmer Loya MD [...] sequela documented in this encounter Care Teams Senior Premium Auditor Relationship Specialty Start Date End Date Bobby Das MD PCP - General 10/02/[address] [place] [address] [place] [phone] documented as of this encounter
--- OUTSIDE RECORDS SUMMARY | 2022-07-26 10:54 | XMS_ITS | Encounter Summary ---
:1940 Author Organization [facility] [place] [address] Care Team Providers Name Role Phone Bobby Das MD Primary Care Provider Encounter Details Date Type Department Care Team Description 08/06/2020 Ancillary Procedure Radiology at [facility] Amy Grimaldo [address] [place] [address] 10 LITTLE JAY [phone] NEUROSURGERY-N Jovanny [place], [place] [address] Social History Tobacco Use Types [...] MD [facility] GASTROENTEROLOGY DEPT [place], [place] 0375 (Wo rk) 09/05/2022 Appointment Cardiology Trinity Redi MD [facility] CARDIOLOGY [place], [place] [address] (Wo rk) 09/05/2022 Office Visit Cardiology Trinity Reid MD [facility] CARDIOLOGY [place], [place] 0[address] (Wo rk) documented as of [...] Organization Address City/State/ZIP Code Phon e Number [place], [place] documented in this encounter Visit Diagnoses Not on filedocumented in this encounter Care Teams Assistant Manager Relationship Specialty Start Date End Date Bobby Das MD PCP - General 10/02/[address] [place] [address] [place] [phone] documented as of this encounter
--- OUTSIDE RECORDS SUMMARY | 2022-07-26 10:54 | XMS_ITS | Encounter Summary ---
:1940 Author Organization [facility] [place] [address] Care Team Providers Name Role Phone Bobby Das MD Primary Care Provider Encounter Details Date Type Department Care Team Description 05/15/2022 Ancillary Procedure Radiology Library at [facility] [place], Lavell Butt, [facility] [place] [address] VASCULAR SURGERY [phone] [place] [phone] (Wo rk) Social History Tobacco Use Types [...] [facility] DR GASTROENTEROLOGY DEPT [place], [place] [address] (Wo rk) 09/05/2022 Appointment Cardiology Trinity Reid MD [facility] CARDIOLOGY [place], [place] [address] (Wo rk) 09/05/2022 Office Visit Cardiology Trinity Reid MD [facility] CARDIOLOGY [place], [place] [address] (Wo rk) documented as of [...] Organization Address City/State/ZIP Code Phon e Number [place], [place] documented in this encounter Visit Diagnoses Not on filedocumented in this encounter Care Teams Director Summer Sessions Relationship Specialty Start Date End Date Bobby Das MD PCP - General 10/02/[address] [place] [address] [place] [phone] documented as of this encounter
--- OUTSIDE RECORDS SUMMARY | 2022-07-26 10:54 | XMS_ITS | Encounter Summary ---
:1940 Author Organization [facility] [place] [address] Care Team Providers Name Role Phone Bobby Das MD Primary Care Provider Reason for Referral Diagnostic Test (Routine) - Closed Specialty Diagnoses / Procedures Referred By Contact Refer red To Contact Radiology Diagnoses 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, sequela Closed compression fracture of L1 lumbar vertebra with delayed healing, subsequent encounter Malignant neoplasm of prostate Zbigniew Thompson PA [facility] Interventionl Rad Procedures IR Vertebroplasty Lumbar Multiple Levels IR Vertebral Augmentation Lumbar Single Level [facility] [place] [address] [place] [address] Fax: Referral ID Status Reason Start Date Expiration Date Visits V isits Requested Authorized [id number] Closed Specialty 07/13/2019 07/12/2020 1 1 Service Requested iagnostic Test (Routine) - Closed Specialty Diagnoses / Procedures Referred By Contact Refer red To Contact Radiology Diagnoses Closed compression fracture of L1 lumbar vertebra with delayed healing, subsequent encounter Malignant neoplasm of prostate Zbigniew Thompson PA [facility] Interventionl Rad [place] [address] [place] [address] Fax: Referral ID Status Reason Start Date Expiration Date Visits V isits Requested Authorized [id number] Closed Specialty 07/13/2019 07/12/2020 1 1 Service Requested Reason for Visit Diagnostic Test (Routine) - Closed Specialty Diagnoses / Procedures Referred By Contact Refer red To Contact Radiology Diagnoses 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, sequela Closed compression fracture of L1 lumbar vertebra with delayed healing, subsequent encounter Malignant neoplasm of prostate Zbigniew Thompson, PA [facility] Interventionl Rad Procedures IR Vertebroplasty Lumbar Multiple Levels IR Vertebral Augmentation Lumbar Single Level [facility] [place] [address] [place] [address] Fax: Referral ID Status Reason Start Date Expiration Date Visits V isits Requested Authorized [id number] Closed Specialty 07/13/2019 07/12/2020 1 1 Service Requested Encounter Details Date Type Department Care Team Description 07/20/2019 Hospital Encounter Radiology at [facility] Elmer Loya, Closed compression fracture of L1 lumbar vertebra with delayed healing, subsequent encounter; [facility] Malignant neoplasm of prostate; Drive [facility] Age-related osteoporosis wit h current pathological fracture of vertebra, sequela [place], [place] CENTER [address] [facility] [phone] [place] [address] Social History Tobacco Use Types Packs/Day Years [...] Martínez RN - 07/20/2019 10:06 AM EDT [facility] Discharge Instructions for Vertebroplasty Your [...] is during regular office hours, please call [phone]. If it is after regular office hours, oron weekends or holidays, please call [phone] and ask to speak to the Medical Biller Coder on callfor Interventional Radiology. XXX You have [...] of : 1940 AGE: 78 y.o. Address: [address] [place] [address] [place] [phone] (home) Mobile: No relevant phone numbers on file. Referring Provider: Zbigniew Thompson REASON FOR VISIT: Order Questions Answers Where will study be performed? [facility] Radiology [120] Specify location Lumbar Reason [...] MD [facility] GASTROENTEROLOGY DEPT [place], [place] 0[address] (Wo rk) 09/05/2022 Appointment Cardiology Trinity Reid MD [facility] CARDIOLOGY [place], [place] 0[address] (Wo rk) 09/05/2022 Office Visit Cardiology Trinity Reid MD [facility] CARDIOLOGY [place], [place] 0375 (Wo rk) documented [...] made and a 13g a introducer needle ([employer]) was advanced through the right pedicle and [...] made an d a 13ga introducer needle ([employer]) was advanced through the left pedicle and [...] made and a 13g a introducer needle ([employer]) was advanced through the right pedicle and [...] made an d a 13ga introducer needle ([employer]) was advanced through the left pedicle and [...] made and a 13g a introducer needle ([employer]) was advanced through the right pedicle and [...] made an d a 13ga introducer needle ([employer]) was advanced through the left pedicle and [...] made and a 13g a introducer needle ([employer]) was advanced through the right pedicle and [...] made an d a 13ga introducer needle ([employer]) was advanced through the left pedicle and [...] Component Value Ref Test Analysis Performed At [facility] Method Time Signature Surgical [id number] ? [facility] The signing pathologist has (i) [...] Spence MD Verified: ??07/22/2019 ?Pathologist Performed at: ??-[facility] Dept. of Pathology, [place], [place] DISCUSSION Deeper levels into the biopsy [...] Organization Address City/State/[place] [address] Specimen to Pathology (07/20/2019 8:41 AM EDT) Specimen Anatomical Collection Method Collection Time Receive d Time (Source) Location / / Volume Laterality AP Specimen 07/20/2019 8:41 AM 9 8:41 EDT AM EDT Narrative [facility] - 07/20/2019 8:41 AM EDT Specimen requisition ordered. ??Separate Pathology report to follow Elmer Loya MD PATHOLOGY/CYTOLOGY ORDERABLE S Performing Organization Address City/State/[place] [address] documented in this encounter [...] mg documented in this encounter Care Teams Welder Gas Tungsten Arc Relationship Specialty Start Date End Date Bobby Das MD PCP - General 10/02/[address] [place] [address] [place] [phone] documented as of this encounter
--- OUTSIDE RECORDS SUMMARY | 2022-07-26 10:54 | XMS_ITS | Encounter Summary ---
:1940 Author Organization [facility] Address [facility] [place] [address] Care Team Providers Name Role Phone Bobby Das MD Primary Care Provider Reason for Visit - Closed Specialty Diagnoses / Procedures Referred By Contact Refer red To Contact Procedures Bobby Das MD Film Library- Storage Only [address] [place] [phone] Referral ID Status Reason Start Date Expiration Date Visits Requ ested Visits Authorized [id number] Closed 02/23/2021 02/23/2022 1 1 Encounter Details Date Type Department Care Team Description 02/20/2021 Ancillary Procedure Radiology Library at Bobby Almaguer MD [address] [phone] (Rebekah rojas) Social History Tobacco Use Types [...] MD [facility] DR GASTROENTEROLOGY DEPT [place], [place] 0[address] (Wo rk) 09/05/2022 Appointment Cardiology Trinity Reid MD [facility] CARDIOLOGY [place], [place] [address] (Wo rk) 09/05/2022 Office Visit Cardiology Trinity Reid MD [facility] CARDIOLOGY [place], [place] 0[address] (Wo rk) documented as of [...] Organization Address City/State/ZIP Code Phon e Number [place], [place] documented in this encounter Visit Diagnoses Not on filedocumented in this encounter Care Teams Mortgage Loan Reviewer Relationship Specialty Start Date End Date Bobby Das MD PCP - General 10/02/[address] [place] [address] [place] [phone] documented as of this encounter
--- OUTSIDE RECORDS SUMMARY | 2022-07-26 10:54 | XMS_ITS | Encounter Summary ---
:1940 Author Organization [facility] [place] [address] Care Team Providers Name Role Phone Bobby Das MD Primary Care Provider Encounter Details Date Type Department Care Team Description 05/13/2018 Ancillary Procedure Radiology Library at Bobby Almaguer MD [facility] [address] [place] [phone] (Wo rk) Social History Tobacco Use Types Packs/Day Years Used Date Current Some Day Smoker 1 50 Smokeless Tobacco: Never Used Sex Assigned at Date Recorded Not on file documented as of this encounter Plan of Treatment Upcoming Encounters Date Type Specialty Care Team Description 08/08/2022 Office Visit Gastroenterology Negra Collins MD [facility] DR GASTROENTEROLOGY DEPT [place], [place] [address] (Wo rk) 09/05/2022 Appointment Cardiology Trinity Reid MD [facility] CARDIOLOGY [place], [place] [address] (Wo rk) 09/05/2022 Office Visit Cardiology Trinity Reid MD [facility] CARDIOLOGY [place], [place] [address] (Wo rk) documented [...] Address City/State/ZIP Code Phon e Number [place], [place] documented in this encounter Visit Diagnoses Not on filedocumented in this encounter Care Teams Tax Examining Technician Relationship Specialty Start Date End Date Bobby Das MD PCP - General 10/02/[address] [place] [address] [place] [phone] documented as of this encounter
--- OUTSIDE RECORDS SUMMARY | 2022-07-26 10:54 | XMS_ITS | Encounter Summary ---
:1940 Author Organization [facility] [place] [address] Care Team Providers Name Role Phone Bobby Das MD Primary Care Provider Encounter Details Date Type Department Care Team Description 06/16/2019 Ancillary Procedure Radiology Library at Bobby Almaguer MD [facility] [address] [place] [phone] (Wo rk) Social History Tobacco Use Types Packs/Day Years Used Date Current Some Day Smoker 1 50 Smokeless Tobacco: Never Used Sex Assigned at Date Recorded Not on file documented as of this encounter Plan of Treatment Upcoming Encounters Date Type Specialty Care Team Description 08/08/2022 Office Visit Gastroenterology Negra Collins MD [facility] DR GASTROENTEROLOGY DEPT [place], [place] [address] (Wo rk) 09/05/2022 Appointment Cardiology Trinity Reid MD [facility] CARDIOLOGY [place], [place] [address] (Wo rk) 09/05/2022 Office Visit Cardiology Trinity Reid MD [facility] CARDIOLOGY [place], [place] 0375 (Wo rk) documented as of [...] Organization Address City/State/ZIP Code Phon e Number [place], [place] documented in this encounter Visit Diagnoses Not on filedocumented in this encounter Care Teams Machine Maintenance Repairer Relationship Specialty Start Date End Date Bobby Das MD PCP - General 10/02/[address] [place] [address] [place] [phone] documented as of this encounter
--- OUTSIDE RECORDS SUMMARY | 2022-07-26 10:54 | XMS_ITS | Encounter Summary ---
:1940 Author Organization [facility] Address [place] [address] Care Team Providers Name Role Phone Bobby Das MD Primary Care Provider Reason for Visit - Closed Specialty Diagnoses / Procedures Referred By Contact Refer red To Contact Procedures Bobby Das MD Film Library- Storage Only DX [address] [place] [phone] Referral ID Status Reason Start Date Expiration Date Visits Requ ested Visits Authorized [id number] Closed 04/13/2021 04/13/2022 1 1 Encounter Details Date Type Department Care Team Description 01/31/2021 Ancillary Procedure Radiology Library at Bobby Almaguer MD [address] [address] [phone] (Rebekah rojas) Social History Tobacco Use Types [...] [facility] DR GASTROENTEROLOGY DEPT [place], [place] 0[address] (Wo rk) 09/05/2022 Appointment Cardiology Trinity Reid MD [facility] CARDIOLOGY [place] [address] (Wo rk) 09/05/2022 Office Visit Cardiology Trinity Reid MD [facility] CARDIOLOGY [place] [address] (Wo [...] Organization Address City/State/ZIP Code Phon e Number [place], [place] documented in this encounter Visit Diagnoses Not on filedocumented in this encounter Care Teams Counter Attendant Relationship Specialty Start Date End Date Bobby Das MD PCP - General 10/02/[address] [place] [address] [place] [phone] documented as of this encounter
--- OUTSIDE RECORDS SUMMARY | 2022-07-26 10:54 | XMS_ITS | Encounter Summary ---
:1940 Author Organization [facility] [place] [address] Care Team Providers Name Role Phone Bobby Das MD Primary Care Provider Encounter Details Date Type Department Care Team Description 12/20/2016 Telephone [facility] Kristin Schultz, RN [facility] [place] [address] Social History Tobacco Use Types Packs/Day Years Used Date Current Some Day Smoker 1 50 Smokeless Tobacco: Never Used Sex Assigned at Date Recorded Not on file documented as of this encounter Miscellaneous Notes Telephone Encounter - Kristin Schultz LPN - 12/20/2016 11:02 AM EST Pt called requesting that the Referral to Hematology and Oncology be sent to [facility] [place] [place]. Will Follow up up with the pain clinic after appointment. documented in this encounter Plan of Treatment Upcoming Encounters Date Type Specialty Care Team Description 08/08/2022 Office Visit Gastroenterology Negra Collins MD [facility] GASTROENTEROLOGY DEPT [place], [place] [address] (Wo rk) 09/05/2022 Appointment Cardiology Trinity Reid MD [facility] CARDIOLOGY [place], [place] [address] (Wo rk) 09/05/2022 Office Visit Cardiology Trinity Reid MD [facility] CARDIOLOGY [place], [place] [address] (Wo rk) documented as of this encounter Visit Diagnoses Not on filedocumented in this encounter Care Teams Commercial Coordinator Relationship Specialty Start Date End Date Bobby Das MD PCP - General 10/02/[address] [place] [address] [place] [phone] documented as of this encounter
--- OUTSIDE RECORDS SUMMARY | 2022-07-26 10:54 | XMS_ITS | Encounter Summary ---
:1940 Author Organization [facility] [place] [address] Care Team Providers Name Role Phone Bobby Das MD Primary Care Provider Encounter Details Date Type Department Care Team Description 09/06/2020 Ancillary Procedure Radiology at [facility] Amy Grimaldo [address] [place] [address] 10 LITTLE JAY [phone] NEUROSURGERY-N Jovanny [place], [place] [address] Social History Tobacco Use Types [...] Collins MD [facility] GASTROENTEROLOGY DEPT [place], [place] [address] (Wo rk) 09/05/2022 Appointment Cardiology Trinity Reid MD [facility] CARDIOLOGY [place], [place] [address] (Wo rk) 09/05/2022 Office Visit Cardiology Trinity Reid MD [facility] CARDIOLOGY [place], [place] [address] (Wo rk) documented as of [...] Organization Address City/State/ZIP Code Phon e Number [place], [place] documented in this encounter Visit Diagnoses Not on filedocumented in this encounter Care Teams Tech Intern Relationship Specialty Start Date End Date Bobby Das MD PCP - General 10/02/[address] [place] [address] [place] [phone] documented as of this encounter
--- OUTSIDE RECORDS SUMMARY | 2022-07-26 10:54 | XMS_ITS | Encounter Summary ---
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 Chano Rebolledo MD [facility] Thor[facility] Surg [address] [place] [address] [place] [address] [place] [address] Phone: Fax: Referral ID Status Reason Start Date Expiration Date Visits V isits Requested Authorized [id number] Denied Consult, 12/18/2016 12/18/2017 1 0 Test & Treat Encounter Details Date Type Department Care Team Description 12/18/2016 Telephone Pain Management at Chano Freitas MD [facility] [place] [address] PAIN CLINIC [phone] [place], [place] 0375 (Wo rk) Social History Tobacco [...] I will make a heme/oncology consultation with [facility] for the patient in the meantime. documented in this encounter Plan of Treatment Upcoming Encounters Date Type Specialty Care Team Description 08/08/2022 Office Visit Gastroenterology Negra Collins MD [facility] GASTROENTEROLOGY DEPT [place], [place] 0[address] (Wo rk) 09/05/2022 Appointment Cardiology Trinity Reid MD [facility] CARDIOLOGY [place], [place] [address]375 (Wo rk) 09/05/2022 Office Visit Cardiology Trinity Reid MD [facility] CARDIOLOGY [place], [place] [address] (Wo rk) Scheduled Referrals Name Type Priority Associated Diagnoses Order S chedule Referral to Outpatient Referral Routine Neoplasm of Ordered: Hematology and uncertain behavior 017 Oncology of respiratory organ documented as of this encounter Visit Diagnoses Diagnosis 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
--- OUTSIDE RECORDS SUMMARY | 2022-07-26 10:54 | XMS_ITS | Encounter Summary ---
:1940 [place] [address] Care Team Providers Name Role Phone Bobby Das MD Primary Care Provider Encounter Details Date Type Department Care Team Description 10/13/2020 Notes Only Radiology at [facility]so [facility] [address] DIAGNOSTIC RADIOLOGY [phone] [place] [phone] (Wo rk) Social History Tobacco Use Types [...] MD [facility] GASTROENTEROLOGY DEPT [place], [place] 0[address] (Wo rk) 09/05/2022 Appointment Cardiology Trinity Reid MD [facility] CARDIOLOGY [place], [place] [address] (Wo rk) 09/05/2022 Office Visit Cardiology Trinity Reid MD [facility] CARDIOLOGY [place], [place] [address] (Wo rk) documented as of this encounter Visit Diagnoses Not on filedocumented in this encounter Care Teams Public Health Outreach Worker Relationship Specialty Start Date End Date Bobby Das MD PCP - General 10/02/[address] [place] [address] [place] [phone] documented as of this encounter
--- OUTSIDE RECORDS SUMMARY | 2022-07-26 10:54 | XMS_ITS | Encounter Summary ---
:1940 Author Organization [facility] [place] [address] Care Team Providers Name Role Phone Bobby Das MD Primary Care Provider Reason for Visit Reason Comments Basal Cell Carcinoma Consultation (Routine) - Closed Specialty Diagnoses / Procedures Referred By Contact Refer red To Contact Dermatology Diagnoses REQUESTING MOHS PROCEDURE RIGHT EYEBROW FOR LESION REMOVED BUT ADDITIONAL TISSUE REMAINS Bobby Das MD Vidal, Nahid Y, MD [address] [place] [address] [place] [address] [place] [address] Fax: Referral ID Status Reason Start Date Expiration Date Visits V isits Requested Authorized [id number] Closed Consult, 06/24/2018 06/24/2019 1 [facility] Encounter Details Date Type Department Care Team Description 09/23/2018 Procedure visit Dermatology at Al[facility]o Romano, Basal cell carcinoma Nicol CARCAMO (BCC) of eyebrow [address] [facility] [address] [place] [address] [phone] Social History Tobacco Use Types Packs/Day Years [...] Llanos MD. Your wound(s) was repaired by [id number] stitches called a primary repair. You do [...] until your sutures are removed. 5. Some machine wedger may need to be delayed or delegated [...] as often as is recommended by your polysomnograph tech, for new skin cancers. This is once [...] it. If after hours, please call the railway switch operator or [phone] and ask for the polysomnograph tech on-call. If you have any non-urgent questions or concerns, please feel free to call my office or contact me through our patient portal, [facility], at [email or web address] How to contact us during business hours Dermatology at [facility] [address]: Mohs scheduling or Mohs follow-up appointments: [phone] documented in this encounter Progress Notes Alvaro Llanso MD - 09/23/2018 10:00 AM EST Images [...] Who lives with patient (i.e. spouse, children, mcc/shelter)? Spouse Relevant travel history or future plans: [...] follow up with his or her referring polysomnograph tech or other skin provider. Summary of Procedure(s): [...] Date: 09/23/2018 Staff Surgeon: Alvaro Llanos MD Nursing/Director Of Software Engineering(s): Assistants: Cassy Jacobson LPN, Jolene Pretty RN, Yolanda Fraser LPN, Savanah Licea CMA Applications Sales Consultant (s): Cristina Cisneros Amanda Isenor Pre-operative diagnosis: [...] Right eyebrow Indication: repair of wound for church of function/anatomy Final Defect size: 1.5 x [...] Gastroenterology Negra Collins MD [facility] GASTROENTEROLOGY [place] [address] (Wo rk) 09/05/2022 Appointment Cardiology Trinity Reid MD [facility] CARDIOLOGY [place], [place] [address] (Wo rk) 09/05/2022 Office Visit Cardiology Trinity Reid MD [facility] CARDIOLOGY [place], [place] [address] (Wo rk) documented as of this encounter Visit Diagnoses Diagnosis Basal cell carcinoma (BCC) of eyebrow documented in this encounter Care Teams Sole Trimmer Relationship Specialty Start Date End Date Bobby Das MD PCP - General 10/02/[address] [place] [address] [place] [address] documented as of this encounter
--- OUTSIDE RECORDS SUMMARY | 2022-07-26 10:54 | XMS_ITS | Encounter Summary ---
:1940 Author Organization [facility] [place] [address] Care Team Providers Name Role Phone Bobby Das MD Primary Care Provider Reason for Visit Reason Comments Basal Cell Carcinoma Encounter Details Date Type Department Care Team Description 08/24/2015 Procedure visit Dermatology at [facility] Leo Solo BCC (basal cell Road MD Delores carcinoma of skin) [address] [facility] [address] [facility] [phone] [address] [address] Social History Tobacco Use Types Packs/Day Years [...] when the wound is well cared for. [place] drainage or slight yellow film on your [...] the hospital number and ask for the Branch Director library sales consultant. Wound Care for Sutured Wounds You [...] the hospital number and ask for the Branch Director library sales consultant. documented in this encounter Progress Notes Leo Solo MD - 08/24/2015 3:25 PM EDT Operative Report Patient name: Koko Zamora : 1940 Date: 08/24/2015 Staff Surgeon: Leo Solo MD, PhD Security Strategist I: Cassy Jacobson, Yolanda Verdin, Etta Burciaga, Gloria Culver MD Incubator Operator: Kourtney Cabrera Pre-operative diagnosis: Basal cell carcinoma Post-operative diagnosis: Basal cell carcinoma Location: Right jainism Procedure: Mohs micrographic surgery Indication for Mohs micrographic surgery: Critical anatomic location Stages: 2 Final defect size: 3.6 x 2.0 cm Stage I The nature and purpose of the procedure, associated risks, possible consequences and complications,and alternative forms of treatment were explained in detail. Informed consent and permission to takephotographs were obtained. The site was confirmed with the patient/authorized provider service representative/referring physician and a pre-operative time-out [...] 08/24/2015 Staff Surgeon: Leo Solo MD, PhD Security Strategist I: Yolanda Rivera, Estefania Welch Clinical Diagnosis: 3.6 x 2.0 cm surgical defect secondary to Mohs microscopically controlled excision of basal cell carcinoma Location: Right jainism Procedure: Transposition flap repair Due to the [...] Negra Collins MD [facility] GASTROENTEROLOGY DEPT [place], [place] [address] ([facility]) 09/05/2022 Appointment Cardiology Trinity Reid MD [facility] CARDIOLOGY [place], [place] [address] ([facility]) 09/05/2022 Office Visit Cardiology Trinity Reid MD [facility] CARDIOLOGY [place], [place] [address] ([facility]) documented as of this encounter Visit Diagnoses Diagnosis BCC (basal cell carcinoma of skin) Basal cell carcinoma of skin, site unspe cified documented in this encounter Care Teams Smudger Relationship Specialty Start Date End Date Bobby Das MD PCP - General 10/02/[address] [place] [address] [place] [address] documented as of this encounter
--- OUTSIDE RECORDS SUMMARY | 2022-07-26 10:54 | XMS_ITS | Encounter Summary ---
:1940 [place] [address] Care Team Providers Name Role Phone Bobby Das MD Primary Care Provider Encounter Details Date Type Department Care Team Description 02/27/2021 Notes Only Radiology Matt Chisholm MD [place] [address] DIAGNOSTIC RADIOLOGY [phone] [place] [phone] (Wo rk) Social History Tobacco Use Types [...] [facility] GASTROENTEROLOGY DEPT [place], [place] [address] (Wo rk) 09/05/2022 Appointment Cardiology Trinity Reid MD [facility] CARDIOLOGY [place], [place] [address] (Wo rk) 09/05/2022 Office Visit Cardiology Trinity Reid MD [facility] CARDIOLOGY [place], [place] [address] (Wo rk) documented as of this encounter Visit Diagnoses Not on filedocumented in this encounter Care Teams High Climber Relationship Specialty Start Date End Date Bobby Das MD PCP - General 10/02/[address] [place] [address] [place] [address] documented as of this encounter
--- OUTSIDE RECORDS SUMMARY | 2022-07-26 10:54 | XMS_ITS | Encounter Summary ---
:1940 Author Organization [facility] Address [facility] [place] [address] Care Team Providers Name Role Phone Bobby Das MD Primary Care Provider Encounter Details Date Type Department Care Team Description 10/25/2020 Laboratory Appointment Lab at [facility] Compression fracture [facility] of T[address] [place] [address] Social History Tobacco Use Types Packs/Day Years [...] Collins MD [facility] DR GASTROENTEROLOGY DEPT [place], [place] 0[address] (Wo rk) 09/05/2022 Appointment Cardiology Trinity Reid MD [facility] CARDIOLOGY [place], [place] 0375 (Wo rk) 09/05/2022 Office Visit Cardiology Trinity Reid MD [facility] CARDIOLOGY [place], [place] 0375 (Wo rk) documented as of this encounter Procedures Procedure Name Priority Date/Time Associated Diagnosis Comme [facility] VENIPUNCTURE Routine 10/25/2020 6:35 AM Compression [...] athologist Signature Platelets 192 145 - 357 [facility] x10(3)/[facility] LABORATORY Plat Immature 2.6 0.0 - 7.4 [facility] % % [facility] LABORATORY Comment: Limitation of the Immature Platelet Frac tion (IPF)-May be less reliable when the platelet count is less than 23v032/u L due to statistical imprecision. The IPF [...] in a decreased state of production. References: [employer] The Clinical Value of the Immature Platelet Fraction (IPF) in Cell Recovery Document Number 10-1143 04/2011 [employer] The Role of the Imm ature [...] Organization Address City/State/Z[place] [address] Prothrombin Time (10/25/2020 6:35 AM EST) athologist Signature PT 10.8 9.4 - 12.5 [facility] LABORATORY INR 1.0 [facility] [...] City/State/ZIP Code Phon e Number [place] [phone] documented in this encounter Visit Diagnoses Diagnosis Compression fracture of T9 vertebra, ini tial encounter documented in this encounter Care Teams Sample Processor Relationship Specialty Start Date End Date Bobby Das MD PCP - General 10/02/[address] [place] [address] [place] [phone] documented as of this encounter
--- OUTSIDE RECORDS SUMMARY | 2022-07-26 10:54 | XMS_ITS | Encounter Summary ---
:1940 Author Organization [facility] [place] [address] Care Team Providers Name Role Phone Bobby Das MD Primary Care Provider Encounter Details Date Type Department Care Team Description 09/22/2020 Telephone Pain and Spine Leon reid at [facility] [place] [address] Social History Tobacco Use Types Packs/Day [...] MD [facility] GASTROENTEROLOGY DEPT [place], [place] 0[address] (Wo rk) 09/05/2022 Appointment Cardiology Trinity Reid MD [facility] ER CARDIOLOGY [place], [place] [address] (Wo rk) 09/05/2022 Office Visit Cardiology Trinity Reid MD [facility] ER CARDIOLOGY [place], [place] [address] (Wo rk) documented as of this encounter Visit Diagnoses Not on filedocumented in this encounter Care Teams Sap Business Objects Developer Relationship Specialty Start Date End Date Bobby Das MD PCP - General 10/02/[address] [place] [address] [place] [address] documented as of this encounter
--- OUTSIDE RECORDS SUMMARY | 2022-07-26 10:55 | XMS_ITS | Encounter Summary ---
:1940 Author Organization [facility] Address [facility] [place] [address] Care Team Providers Name Role Phone Bobby Das MD Primary Care Provider Reason for Visit Reason Onset Date Comments Other 07/19/2011 Encounter Details Date Type Department Care Team Description 07/19/2011 Telephone Cardiology at [facility] Chet Nicole MD [facility] [place] [address] CARDIOLOGY DEPT. [phone] [place], [place] [address] (Wo rk) Social History Tobacco [...] MD [facility] GASTROENTEROLOGY DEPT [place], [place] 0[address] (Wo rk) 09/05/2022 Appointment Cardiology Trinity Reid MD [facility] ER CARDIOLOGY [place], [place] [address] (Wo rk) 09/05/2022 Office Visit Cardiology Trinity Reid MD [facility] ER CARDIOLOGY [place], [place] [address] (Wo rk) documented as of this encounter Visit Diagnoses Not on filedocumented in this encounter Care Teams Running Instructor Relationship Specialty Start Date End Date Bobby Das MD PCP - General 10/02/[address] [place] [address] [place] [phone] documented as of this encounter
--- OUTSIDE RECORDS SUMMARY | 2022-07-26 10:55 | XMS_ITS | Encounter Summary ---
:1940 Author Organization [facility] [place] [address] Care Team Providers Name Role Phone Bobby Das MD Primary Care Provider Reason for Visit Reason Comments Shortness of Breath Encounter Details Date Type Department Care Team Description 09/17/2011 Office Visit [facility] Hosp Torrey Giang SOB (shortness of [address] Bradley Mendoza MD breath) (Primary Dx) [facility] [address] CARDIOLOGY DEPT. [place] [phone] Social History Tobacco Use Types Packs/Day Years Used Date Current Every Day Smoker 1 50 Smokeless Tobacco: Never Used Sex Assigned at Date Recorded Not on file documented as of this encounter Progress Notes Wai Schilling - 09/22/2011 2:11 PM EST Torrey iGang - 09/17/2011 10:27 AM EST Subjective: Patient [...] 08/08/2022 Office Visit Gastroenterology Negar Collins MD [facility] GASTROENTEROLOGY DEPT [place], [place] [address] (Wo rk) 09/05/2022 Appointment Cardiology Trinity Reid MD [facility] CARDIOLOGY [place], [place] [address] (Wo rk) 09/05/2022 Office Visit Cardiology Trinity Reid MD [facility] CARDIOLOGY [place], [place] [address] (Wo rk) documented as of [...] breath documented in this encounter Care Teams J2Ee Architect Relationship Specialty Start Date End Date Bobby Das MD PCP - General 10/02/[address] [place] [address] [place] [address] documented as of this encounter
--- OUTSIDE RECORDS SUMMARY | 2022-07-26 10:55 | XMS_ITS | Encounter Summary ---
:1940 Author Organization [facility] Address [facility] [address] [place] [address] Care Team Providers Name Role Phone Bobby Das MD Primary Care Provider Reason for Visit Reason Comments Shortness of Breath Encounter Details Date Type Department Care Team Description 12/24/2011 Office Visit [facility] Hosp Torrey Giang SOB (shortness of [address] Bradley Menodza MD breath) (Primary Dx) [facility] [address] CARDIOLOGY DEPT. [place], [place] [address] Social History Tobacco Use Types [...] Collins MD [facility] GASTROENTEROLOGY DEPT [place], [place] [address] (Wo rk) 09/05/2022 Appointment Cardiology Trinity Reid MD [facility] CARDIOLOGY [place], [place] 0[address] (Wo rk) 09/05/2022 Office Visit Cardiology Trinity Reid MD [facility] CARDIOLOGY [place], [place] 0375 (Wo rk) documented as of this encounter Visit Diagnoses Diagnosis SOB (shortness of breath) - Primary Shortness of breath documented in this encounter Care Teams Sound Technician Relationship Specialty Start Date End Date Bobby Das MD PCP - General 10/02/[address] [place] [address] [place] [phone] documented as of this encounter
--- OUTSIDE RECORDS SUMMARY | 2022-07-26 10:55 | XMS_ITS | Encounter Summary ---
:1940 Author Organization [facility] [place] [address] Care Team Providers Name Role Phone Bobby Das MD Primary Care Provider Reason for Visit Reason Comments Skin Check Encounter Details Date Type Department Care Team Description 03/29/2014 Office Visit Dermatology at [facility], Kyle c ell carcinoma (Primary Dx); Nba CARCAMO Verruca vulgaris; [address] [place] (actinic keratosis) [facility] B DERMATOLOGY [place], [place] [address] [phone] Social History Tobacco Use Types Packs/Day Years [...] sun over the years. He lives in [place], [place]. Physical examination reveals a pleasant, 73-year-old gentleman who has a pearly, 1-cm papule on the right lateral canthus, site A; and a pearly papule about 8 mm in diameter, site C, on the right cheondoism at the scalp line. At the central [...] BCCAs, right lateral canthus and right lateral cheondoism, sites A and C, respectively. a. After [...] [facility] GASTROENTEROLOGY DEPT [place], [place] [address] (Wo rk) 09/05/2022 Appointment Cardiology Trinity Reid MD [facility] CARDIOLOGY [place], [place] [address] (Wo rk) 09/05/2022 Office Visit Cardiology Trinity Reid MD [facility] CARDIOLOGY [place], [place] [address] (Wo rk) documented as of this encounter Visit Diagnoses Diagnosis Basal cell carcinoma - Primary Basal cell carcinoma of skin, site unspe cified Verruca vulgaris Viral warts, unspecified [place] (actinic keratosis) Actinic keratosis documented in this encounter Care Teams Loss Prevention Guard Relationship Specialty Start Date End Date Bobby Das MD PCP - General 10/02/[address] [place] [address] [place] [address] documented as of this encounter
--- OUTSIDE RECORDS SUMMARY | 2022-07-26 10:55 | XMS_ITS | Encounter Summary ---
:1940 Author Organization [facility] Address [facility] [place] [address] Care Team Providers Name Role Phone Bobby Das MD Primary Care Provider Reason for Visit Reason Comments Shortness of Breath Encounter Details Date Type Department Care Team Description 06/28/2011 Office Visit Cardiology at [facility] Chet Nicole SOB (shortness of breath) (P rimary Dx); [facility] GIB (gastrointestinal bleeding); Drive [facility] MVP (mitral valve prolapse) [place] [address] CARDIOLOGY DEPT. [phone] [place], [place] [address] Social History Tobacco Use Types [...] Giordano MD - 06/28/2011 4:15 PM EDT [facility] Cholesterol and Triglycerides Tests: About These [...] 60 mg/dl is considered ideal. ?? Total isvgvceradw-dc-JCC ratio: A ratio of 5:1 or lower is recommended. ?? LDL cholesterol: Between 100-129 mg/dL is recommended. Lower than 100 mg/dL is considered ideal. ?? VLDL cholesterol: 30 mg/dL or less is recommended. ?? Triglycerides: Lower than 150 mg/dL is recommended. Where can you learn more? Visit our health information library at [email or web address]. You can also view health information on [employer], your personal patient account. Log in or sign up today. Enter V788 in the search box to learn more about Cholesterol and Triglycerides Tests: About These Tests. ?? [id number] [employer]. Care instructions adapted under license by [facility]. This care instruction is for use with your licensed healthcare professional. If you have questionsabout a medical condition or this instruction, always ask your healthcare professional. [employer] disclaims any warranty or liability for your [...] valve prolapse) s/p repair Surgery done at [facility] in 2000 ??? Hypertriglyceridemia ??? Adhesive capsulitis of L shoulder ??? Alcohol use Medications: Melcroft-3 Fatty Acids-Vitamin E (FISH OIL) 1,000 mg [...] MD [facility] GASTROENTEROLOGY DEPT [place], [place] [address] (Wo rk) 09/05/2022 Appointment Cardiology Trinity Reid MD [facility] CARDIOLOGY [place], [place] [address] (Wo rk) 09/05/2022 Office Visit Cardiology Trinity Reid MD [facility] CARDIOLOGY [place], [place] [address] (Wo rk) documented as of this encounter Procedures Procedure Name Priority Date/Time Associated Diagnosis Comme nts EKG 12-LEAD Routine 06/28/2011 2:59 PM SOB (shortness of Resu lts for this EDT breath) procedure are i n the results section . documented in this encounter Results EKG 12 Lead (06/28/2011 2:59 PM EDT) [facility] gist Method Time Signature Ventricular rate 70 BPM MUSE SYSTEM Atrial Rate 70 BPM MUSE SYSTEM P-R Interval 182 ms MUSE SYSTEM QRS Duration 106 ms MUSE SYSTEM Q-T Interval 406 ms MUSE SYSTEM QTC Calculated 438 ms MUSE SYSTEM (Bezet) Calculated P Froid 60 degrees MUSE SYSTEM Calculated R Froid -51 degrees MUSE SYSTEM Calculated T Froid 32 degrees MUSE SYSTEM INTERPRETATION Normal sinus [...] disorders documented in this encounter Care Teams Micro Lab Analyst Relationship Specialty Start Date End Date Bobby Das MD PCP - General 10/02/[address] [place] [address] [place] [phone] documented as of this encounter
--- OUTSIDE RECORDS SUMMARY | 2022-07-26 11:01 | XMS_ITS | Encounter Summary ---
:1940 Author Organization [facility] Address [address] [place] [address] Care Team Providers Name Role Phone Bobby Das MD Primary Care Provider Encounter Details Date Type Department Care Team Description 10/29/2017 Hospital Encounter [facility] Unknown, Provider, [facility] [address] [facility] [phone] [place] [address] (Work) [phone] Social History Tobacco Use Types Packs/Day Years Used Date Never Assessed Sex Assigned at Date Recorded Not on file documented as of this encounter Discharge Disposition Disposition Code Departure Means Destination Home or Self Fdc documented in this encounter Plan of Treatment Not on filedocumented as of this encounter Visit Diagnoses Not on filedocumented in this encounter Care Teams Welding Machine Operator Resistance Relationship Specialty Start Date End Date Bobby Das MD PCP - General 07/06/[address] [place] [address],[address] [place] [address] documented as of this encounter
--- OUTSIDE RECORDS SUMMARY | 2022-07-26 11:01 | XMS_ITS | Encounter Summary ---
:1940 Author Organization [facility] Address [address] [place] [address] Care Team Providers Name Role Phone Bobby Das MD Primary Care Provider Encounter Details Date Type Department Care Team Description 01/08/2018 Hospital Encounter [facility] Aries Gutierrez Radiation Oncology - III, [facility] [address] [address] [address], [place] [phone] (Wo rk) Social History Tobacco Use Types [...] on filedocumented in this encounter Care Teams Bleach Plant Operator Relationship Specialty Start Date End Date Bobby Das MD PCP - General 07/06/[address] [place] [address],[address] [place] [address] documented as of this encounter
--- OUTSIDE RECORDS SUMMARY | 2022-07-26 11:01 | XMS_ITS | Encounter Summary ---
:1940 Author Organization [facility] Address [address] [place] [address] Care Team Providers Name Role Phone Bobby Das MD Primary Care Provider Encounter Details Date Type Department Care Team Description 02/08/2018 Hospital Encounter [facility] Aries Gutierrez Radiation Oncology - III, [facility] [address] [facility] [address] [place] [address] [address], [place] [address] (Wo rk) Social History Tobacco Use Types [...] Code Departure Means Destination Home or Self Fci documented in this encounter Plan of Treatment Not on filedocumented as of this encounter Visit Diagnoses Not on filedocumented in this encounter Care Teams Mobile Security Architect Relationship Specialty Start Date End Date Bobby Das MD PCP - General 07/06/[address] [place] [address],[address] [place] [phone] documented as of this encounter
--- OUTSIDE RECORDS SUMMARY | 2022-07-26 11:01 | XMS_ITS | Encounter Summary ---
:1940 Author Organization [facility] Address [address] [place] [address] Care Team Providers Name Role Phone Bobby Das MD Primary Care Provider Reason for Visit Reason Onset Date Comments Follow-up 02/24/2018 Appointment Related 02/24/2018 scheduled appt w/ nu rsing for Lupron injection on 04/06 Encounter Details Date Type Department Care Team Description 02/24/2018 Telephone [facility] Ama Corea, Follow -up; Appointment Urology - James campo RN Related (scheduled appt [address] [facility] w/ [place] [address] injection on 04/06) [phone] Social History Tobacco Use Types Packs/Day Years Used Date Current Every Day Smoker Smokeless Tobacco: Never Used Sex Assigned at Date Recorded Not on file documented as of this encounter Miscellaneous Notes Telephone Encounter - Mague Crisostomo - 02/25/2018 1044 EDT scheduled appt w/ nursing for Lupron injection on 04/06; pt prefers it at the [place] office Telephone Encounter - Ama Corea, RN [...] on filedocumented in this encounter Care Teams Veterinary Poultry Inspector Relationship Specialty Start Date End Date Bobby Das MD PCP - General 07/06/[address] [place] [address],[address] [place] [address] documented as of this encounter
--- OUTSIDE RECORDS SUMMARY | 2022-07-26 11:01 | XMS_ITS | Encounter Summary ---
:1940 Author Organization [facility] Address [address] [place] [address] Care Team Providers Name Role Phone Bobby Das MD Primary Care Provider Encounter Details Date Type Department Care Team Description 08/03/[address] [facility] Outr Resulting Lab, Pathology & Laboratory Provider [facility] [address] [place], [place] [id number] Social History Tobacco Use Types Packs/Day Years [...] (08/03/2020 12:22 EDT) COVID-19 rt-PCR NEGATIVE Negative [facility] Result Comment: LABORATORY 2019-novel [...] Address City/State/ZIP Code Phon e Number [facility] [place] [place] COVID-19 TESTING (08/03/2020 12:22 EDT) Pathologist [facility] COVID-19 rt-PCR NEGATIVE Negative [facility] Result Comment: LABORATORY 2019-novel Coronavirus (2019 -nCoV) [...] Organization Address City/State/ZIP Code Phon e Number [facility] [address] [place] [address] SERVICES [facility] [place], [place] documented in this encounter Visit Diagnoses Not on filedocumented in this encounter Care Teams Coning Machine Operator Relationship Specialty Start Date End Date Bobby Das MD PCP - General 07/06/[address] [place] [address] ,[address] [place] [address] documented as of this encounter
--- OUTSIDE RECORDS SUMMARY | 2022-07-26 11:01 | XMS_ITS | Encounter Summary ---
:1940 Author Organization [facility] Address [address] [place] [address] Care Team Providers Name Role Phone Bobby Das MD Primary Care Provider Encounter Details Date Type Department Care Team Description 01/08/2019 Orders Only [facility] [place] Aries Gutierrez neoplasm of Radiation Oncology - Felix EAST MD prostate ([facility]) [address] (Primary Dx) [address] [place] [address] [facility] [phone] [facility] [address] [place] [address] (Wo rk) Social History Tobacco Use Types Packs/Day Years Used Date Current Every Day Smoker Smokeless Tobacco: Never Used Sex Assigned at Date Recorded Not on file documented as of this encounter Plan of Treatment Not on filedocumented as of this encounter Results PSA TOTAL, DIAGNOSTIC (07/16/2019 9:30 EDT) PSA 0.1 0 - 6.5 ng/ml [facility] Comment: LABORATORY SERVICES Serum PSA concentration should not be interpreted as absolute evidence for the presence or absence of malignant disease. Assayed utilizing Siemens (weeSPIN) chemiluminescent technology. ??Values obtained by using different assay methods cannot be used interchangeably. Specimen Blood specimen (specimen) - Blood Performing Organization Address City/State/ZIP Code Phon e Number [facility] [address] [place] [address] SERVICES documented in this encounter Visit Diagnoses Diagnosis Malignant neoplasm of prostate ([facility]) (HCC) - Primary Malignant neoplasm of prostate documented in this encounter Care Teams Feltmaker And Weigher Relationship Specialty Start Date End Date Bobby Das MD PCP - General 07/06/[address] [place] [address],[address] [place] [phone] documented as of this encounter
--- OUTSIDE RECORDS SUMMARY | 2022-07-26 11:01 | XMS_ITS | Encounter Summary ---
:1940 Author Organization [facility] Address [address] [place] [address] Care Team Providers Name Role Phone Bobby Das MD Primary Care Provider Reason for Visit Reason Comments Prostate Cancer Encounter Details Date Type Department Care Team Description 02/03/2018 Radiation Therapy [facility] Aries Gutierrez alignant neoplasm Visit Radiation Oncology Felix EAST MD of [facility] - [address] ([facility]) ([facility]) [address] [place] [address] (Primary Dx) [facility], [address] [place] [address] [address] [place] [address] Social History Tobacco Use Types Packs/Day Years Used Date Current Every Day Smoker Smokeless Tobacco: Never Used Sex Assigned at Date Recorded Not on file documented as of this encounter Progress Notes Delores Gutierrez III, MD - 02/03/2018 3956 EDT On Treatment Visit Assessment: Koko Zamora is currently receiving radiation therapy treatment and is being seen today for his weekly on treatment visit. The encounter diagnosis was Malignant neoplasm of prostate ([facility]). Assessment: Assessment Completed By: Felix Gutierrez MD (02/03/18 9390) Radiation Therapy: Cumulative RT Dose 600 cGy [...] Changes: None Sj Gutierrez MD Radiation Oncology [phone] (office) [phone] (pager) documented in this encounter Plan of [...] documented as of this encounter Care Teams Core Drill Operator Helper Relationship Specialty Start Date End Date Bobby Das MD PCP - General 07/06/[address] [place] [address],[address] [place] [address] documented as of this encounter
--- OUTSIDE RECORDS SUMMARY | 2022-07-26 11:01 | XMS_ITS | Encounter Summary ---
:1940 Author Organization [facility] Address [address] [place] [address] Care Team Providers Name Role Phone Bobby Das MD Primary Care Provider Reason for Visit Reason Comments Cancer Encounter Details Date Type Department Care Team Description 02/24/2018 Radiation Therapy [facility] Isela Law Ma lignant neoplasm of prostate (HCC-CMS) (Primary Dx); Visit Radiation Oncology - DION roldan deprivation therapy [place] [address] [place] [address] Social History Tobacco Use Types Packs/Day [...] Visit Diagnoses Diagnosis Malignant neoplasm of prostate ([facility]) (HCC) - Primary Malignant neoplasm of prostate Androgen deprivation therapy Encounter for therapeutic drug monitorin g documented in this encounter Care Teams Autographer Relationship Specialty Start Date End Date Bobby aDs MD PCP - General 07/06/[address] [place] [address] ,[address] [place] [address] documented as of this encounter
--- OUTSIDE RECORDS SUMMARY | 2022-07-26 11:01 | XMS_ITS | Encounter Summary ---
:1940 Author Organization [facility] Address [address] [place] [address] Care Team Providers Name Role Phone Bobby Das MD Primary Care Provider Reason for Visit Reason Onset Date Comments Follow-up 01/12/2018 Encounter Details Date Type Department Care Team Description 01/12/2018 Telephone [facility] Radiation De Law RN Follow-up Oncology - [address] [address] Social History Tobacco Use Types Packs/Day Years Used Date Current Every Day Smoker Smokeless Tobacco: Never Used Sex Assigned at Date Recorded Not on file documented as of this encounter Miscellaneous Notes Telephone Encounter - Isela Law RN - 01/12/2018 7660 EST This is a planned post procedure [...] on filedocumented in this encounter Care Teams Tool Crib Lead Relationship Specialty Start Date End Date Bobby Das MD PCP - General 07/06/[address] [place] [address],[address] [place] [address] documented as of this encounter
--- OUTSIDE RECORDS SUMMARY | 2022-07-26 11:01 | XMS_ITS | Encounter Summary ---
:1940 Author Organization [facility] Address [address] [place] [address] Care Team Providers Name Role Phone Bobby Das MD Primary Care Provider Reason for Visit Reason Comments Prostate Cancer Encounter Details Date Type Department Care Team Description 02/10/2018 Radiation Therapy [facility] Aries Gutierrez alignant neoplasm Visit Radiation Oncology Felix EAST MD of [facility] - [address] ([facility]) (Primary [address] [facility] Dx) [facility], [address] [place] [address] [address] [place] [address] Social History Tobacco Use Types [...] encounter diagnosis was Malignant neoplasm of prostate ([facility]). Assessment: Assessment Completed By: Felix Gutierrez MD (02/10/18 3266) Radiation Therapy: Cumulative RT Dose 2400 cGy [...] Changes: None Sj Gutierrez MD Radiation Oncology [phone] (office) [phone] (pager) documented in this encounter Plan of Treatment Not on filedocumented as of this encounter Visit Diagnoses Diagnosis Malignant neoplasm of prostate (HCC-CMS) (HCC) - Primary Malignant neoplasm of prostate documented in this encounter Care Teams Pharmacy Technician Per Diem Relationship Specialty Start Date End Date Bobby Das MD PCP - General 07/06/[address] [place] [address] ,[address] [place] [address] documented as of this encounter
--- OUTSIDE RECORDS SUMMARY | 2022-07-26 11:01 | XMS_ITS | Encounter Summary ---
:1940 Author Organization [facility] Address [address] [place] [address] Care Team Providers Name Role Phone Bobby Das MD Primary Care Provider Reason for Visit Reason Onset Date Comments Follow-up 03/06/2018 Encounter Details Date Type Department Care Team Description 03/06/2018 Telephone [facility] Theron Rojas RN Follow-up Radiation Oncology - Main [address] [place] [phone] [place] [address] Social History Tobacco Use Types Packs/Day Years [...] filedocumented in this encounter Care Teams Manager Business Banking Relationship Specialty Start Date End Date Bobby Das MD PCP - General 07/06/[address] [place] [address],[address] [place] [address] documented as of this encounter
--- OUTSIDE RECORDS SUMMARY | 2022-07-26 11:01 | XMS_ITS | Encounter Summary ---
:1940 Author Organization [facility] Address [address] [place] [address] Care Team Providers Name Role Phone Bobby Das MD Primary Care Provider Reason for Visit Reason Comments Cancer Encounter Details Date Type Department Care Team Description 02/13/2018 Radiation Therapy [facility] Isela Law Ma lignant neoplasm of Visit Radiation Oncology - RN prostat e ([facility]) Main [place] (Primary Dx) [address] [place] [address] Social History Tobacco Use Types Packs/Day [...] encounter diagnosis was Malignant neoplasm of prostate ([facility]). Assessment: Assessment Completed By: Isela Law [...] prostate documented in this encounter Care Teams Sales Marketing Director Relationship Specialty Start Date End Date Bobby Das MD PCP - General 07/06/[address] [place] [address] ,[address] [place] [address] documented as of this encounter
--- OUTSIDE RECORDS SUMMARY | 2022-07-26 11:01 | XMS_ITS | Encounter Summary ---
:1940 Author Organization [facility] Address [address] [place] [address] Care Team Providers Name Role Phone Bobby Das MD Primary Care Provider Encounter Details Date Type Department Care Team Description 01/08/2018 Procedure visit [facility] Aries Gutierrez Radiation Oncology - IIIMD [address] [address] [address], [place] [phone] (Wo rk) Social History Tobacco Use Types [...] prostate gland. DATE OF SERVICE: 01/08/2018 INDICATIONS: [id number], PSA 12.8 Winifred score 3+4 = 7 [...] documented as of this encounter Care Teams Speaker Mounter Relationship Specialty Start Date End Date Bobby Das MD PCP - General 07/06/[address] [place] [address] ,[address] [place] [address] documented as of this encounter
--- OUTSIDE RECORDS SUMMARY | 2022-07-26 11:01 | XMS_ITS | Encounter Summary ---
:[address] [facility] Address [address] [place] [address] Care Team Providers Name Role Phone Bobby Das MD Primary Care Provider Reason for Visit Reason Comments Follow-up Encounter Details Date Type Department Care Team Description 12/02/2017 Office Visit [facility] Erlin José MD Malignant neoplasm of Urology - [address] ([facility] ([facility]) (Primary [address] [facility] [place] [address] [address], [place] [address] (Wo rk) Social History Tobacco [...] Progress Notes Chino José MD - 12/02/2017 4178 EST Chief Complaint: Chief Complaint Patient presents with ??? Follow-up HPI: Koko is a 77 y.o. male with prostate cancer. I originally saw the patient and [facility] and diagnosed him with [place] 3+4 prostate cancer associated with a PSA of 12.8. He underwent a bone scan for staging that came back negative for metastatic disease. He is seeing me today at [facility] for a Lupron injection. He started his [...] ( desire to have sex ). Some moth exterminator hormonal therapy is associated with the loss [...] 12/02 documented in this encounter Care Teams Backfiller Relationship Specialty Start Date End Date Bobby Das MD PCP - General 07/06/[address] [place] [address],[address] [place] [address] documented as of this encounter
--- OUTSIDE RECORDS SUMMARY | 2022-07-26 11:01 | XMS_ITS | Encounter Summary ---
:[address] [facility] Address [address] [place] [address] Care Team Providers Name Role Phone Bobby Das MD Primary Care Provider Encounter Details Date Type Department Care Team Description 11/20/2017 Results Only [facility]- Unknown, [facility] ProviderMD [phone] Social History Tobacco Use Types Packs/Day Years [...] on filedocumented in this encounter Care Teams Centrifuge Separator Tender Relationship Specialty Start Date End Date Bobby Das MD PCP - General 07/06/[address] [place] [address],[address] [place] [address] documented as of this encounter
--- OUTSIDE RECORDS SUMMARY | 2022-07-26 11:01 | XMS_ITS | Encounter Summary ---
:1940 Author Organization [facility] Address [address] [place] [address] Care Team Providers Name Role Phone Bobby Das MD Primary Care Provider Reason for Visit Reason Comments Prostate Cancer Encounter Details Date Type Department Care Team Description 02/17/2018 Radiation Therapy [facility] Aries Gutierrez alignant neoplasm Visit Radiation Oncology Feilx EAST MD of [facility] - [address] ([facility]) (Primary 111 [facility] Dx) [facility], [address] [place] [address] [address] [place] [address] Social History Tobacco Use Types Packs/Day Years Used Date Current Every Day Smoker Smokeless Tobacco: Never Used Sex Assigned at Date Recorded Not on file documented as of this encounter Progress Notes Delores Gutierrez III, MD - 02/17/2018 1113 EDT On Treatment Visit Assessment: Koko Zamora is currently receiving radiation therapy treatment and is being seen today for his weekly on treatment visit. The encounter diagnosis was Malignant neoplasm of prostate ([facility]). Assessment: Assessment Completed By: Felix Gutierrez MD (02/17/18 1873) Radiation Therapy: Cumulative RT Dose 3600 cGy [...] Changes: None Sj Gutierrez MD Radiation Oncology [phone] (office) [phone] (pager) documented in this encounter Plan of Treatment Not on filedocumented as of this encounter Visit Diagnoses Diagnosis Malignant neoplasm of prostate (HCC-CMS) (HCC) - Primary Malignant neoplasm of prostate documented in this encounter Care Teams Property Loss Insurance Claim Adjuster Relationship Specialty Start Date End Date Bobby Das MD PCP - General 07/06/[address] [place] [address] ,[address] [place] [address] documented as of this encounter
--- OUTSIDE RECORDS SUMMARY | 2022-07-26 11:01 | XMS_ITS | Encounter Summary ---
:1940 Author Organization [facility] Address [address] [place] [address] Care Team Providers Name Role Phone Bobby Das MD Primary Care Provider Reason for Visit Reason Onset Date Comments Prostate Cancer 06/03/2018 Encounter Details Date Type Department Care Team Description 06/03/2018 Telephone [facility] Aries Gutierrez Cancer Radiation Oncology - III, [address] [address] [address], [place] [address] (Wo rk) Social History Tobacco Use Types Packs/Day Years Used Date Current Every Day Smoker Smokeless Tobacco: Never Used Sex Assigned at Date Recorded Not on file documented as of this encounter Miscellaneous Notes Telephone Encounter - Delores Gutierrez III, MD - 06/03/2018 2711 EDT RADIATION ONCOLOGY I spoke with Mr. Zamora by phone today. He tells me he is unable to make it to [place] for follow-up visits with me as he [...] office if he will be in the [place] area as I would be happyto move my schedule as needed to see him for follow-up. I did strongly encourage him to continue follow-up with Dr. José and asked him to call them to arrange an appointment. He canceled his next scheduled follow-up appointment with me. Sj Gutierrez MD Radiation Oncology [phone] (office) [phone] (pager) This note has been prepared with voice recognition software. Please excuse autographer errors. documented in this encounter Plan of Treatment Not on filedocumented as of this encounter Visit Diagnoses Not on filedocumented in this encounter Care Teams Tank Cleaner Relationship Specialty Start Date End Date Bobby Das MD PCP - General 07/06/[address] [place] [address],[address] [place] [address] documented as of this encounter
--- OUTSIDE RECORDS SUMMARY | 2022-07-26 11:01 | XMS_ITS | Encounter Summary ---
:1940 Author Organization [facility] Address [address] [place] [address] Care Team Providers Name Role Phone Abby Das MD Primary Care Provider Encounter Details Date Type Department Care Team Description 04/22/2018 Results Only [facility] Abby Das MD [phone] [place] [address],[address] [place], [place] [phone] (Wo rk) Social History Tobacco Use Types Packs/Day Years Used Date Current Every Day Smoker Smokeless Tobacco: Never Used Sex Assigned at Date Recorded Not on file documented as of this encounter Plan of Treatment Not on filedocumented as of this encounter Procedures Procedure Name Priority Date/Time Associated Diagnosis [facility] SURGICAL PATHOLOGY Routine 04/22/2018 8:40 EDT Re sults for this procedure are i n the results section. documented in this encounter Results SURGICAL PATHOLOGY (04/22/2018 8:40 EDT) Pathology Report: SURGICAL PATHOLOGY REPORT [facility] Reports generated via electronic interface contain abram ginal data; LABORATORY however they are lacking the format of the original re port. SERVICES Caution should be taken when reading/interpreting unfo rmatted reports. Name: ? ETAT BAH ? Accession #: ? [id number] ? : ? 1940 (Age: 77) ??M [...] City/State/ZIP Code Phon e Number [facility]ORY [address] [place] [address] SERVICES documented in this encounter Visit Diagnoses Not on filedocumented in this encounter Care Teams Metal Shaping Machine Operator Relationship Specialty Start Date End Date Abby Das MD PCP - General 07/06/[address] [place] [address] ,[address] [place] [address] documented as of this encounter
--- OUTSIDE RECORDS SUMMARY | 2022-07-26 11:01 | XMS_ITS | Encounter Summary ---
:1940 Author Organization [facility] Address [address] [place] [address] Care Team Providers Name Role Phone Bobby Das MD Primary Care Provider Encounter Details Date Type Department Care Team Description 07/16/2019 Phlebotomy Only [facility] Flat[place] Tier, Eboni barbosa neoplasm - [facility] Outpatient of prostate 111 [facility] ([facility]) (Primary [place], [place] Dx) [address] Social History Tobacco Use [...] of prostate procedure are i n ([facility]) the results section. documented in this encounter Results PSA TOTAL, DIAGNOSTIC (07/16/2019 9:30 EDT) PSA 0.1 0 - 6.5 ng/ml [facility] Comment: LABORATORY SERVICES Serum PSA concentration should not be interpreted as absolute evidence for the presence or absence of malignant disease. Assayed utilizing Siemens (Nintex) chemiluminescent technology. ??Values obtained by using different assay methods cannot be used interchangeably. Specimen Blood specimen (specimen) - Blood Performing Organization Address City/State/ZIP Code Phon e Number [facility] [address] [place] [address] SERVICES documented in this encounter Visit Diagnoses Diagnosis Malignant neoplasm of prostate ([facility]) (HCC) - Primary Malignant neoplasm of prostate documented in this encounter Orders Lab Orders Without Results Count Last Ordered Date st Ordered Date PSA TOTAL, DIAGNOSTIC 1 07/16/2019 documented in this encounter Care Teams Cooking Appliance Repair Technician Relationship Specialty Start Date End Date Bobby Das MD PCP - General 07/06/[address] [place] [address],[address] [place] [address] documented as of this encounter
--- OUTSIDE RECORDS SUMMARY | 2022-07-26 11:01 | XMS_ITS | Encounter Summary ---
:1940 Author Organization [facility] Address [address] [place] [address] Care Team Providers Name Role Phone Bobby Das MD Primary Care Provider Reason for Visit Reason Onset Date Comments Cancer 03/18/2018 Encounter Details Date Type Department Care Team Description 03/18/2018 Telephone [facility] Aries Gutierrez II, Cancer Radiation Oncology - [address] [address] [address], [place], [place] [address] (Wo rk) Social History Tobacco Use Types Packs/Day Years Used Date Current Every Day Smoker Smokeless Tobacco: Never Used Sex Assigned at Date Recorded Not on file documented as of this encounter Miscellaneous Notes Telephone Encounter - Delores Gutierrez III, MD - 03/18/2018 9484 EDT RADIATION ONCOLOGY Mr. Zamora called the [...] this month. Sj Gutierrez MD Radiation Oncology [phone] (office) [phone] (pager) This note has been prepared with voice recognition software. Please excuse roll forming machine set up operator errors. documented in this encounter Plan of Treatment Not on filedocumented as of this encounter Visit Diagnoses Not on filedocumented in this encounter Care Teams Cafeteria Or Lunchroom Checker Relationship Specialty Start Date End Date Bobby Das MD PCP - General 07/06/[address] [place] [address] ,[address] [place] [address] documented as of this encounter
--- OUTSIDE RECORDS SUMMARY | 2022-07-26 11:01 | XMS_ITS | Encounter Summary ---
:1940 Author Organization [facility] Address [address] [place] [address] Care Team Providers Name Role Phone Bobby Das MD Primary Care Provider Encounter Details Date Type Department Care Team Description 07/11/2019 Hospital Encounter [facility] Aries Gutierrez Radiation Oncology - III, [facility] 111 [facility] [address] [place] [address] [address], [place] [phone] (Wo rk) Social History Tobacco Use Types [...] on filedocumented in this encounter Care Teams Tooth Cutter Clutch Relationship Specialty Start Date End Date Bobby Das MD PCP - General 07/06/[address] [place] [place] [address] ,[address] [place] [address] documented as of this encounter
--- OUTSIDE RECORDS SUMMARY | 2022-07-26 11:01 | XMS_ITS | Encounter Summary ---
:1940 Author Organization [facility] Address [address] [place] [address] Care Team Providers Name Role Phone Bobby Das MD Primary Care Provider Encounter Details Date Type Department Care Team Description 04/23/2018 Hospital Encounter [facility]- Devi Unknown, Provider, [facility] [address] [phone] [place] [address] (Work) [phone] Social History Tobacco Use Types Packs/Day Years [...] on filedocumented in this encounter Care Teams Java Developer Relationship Specialty Start Date End Date Bobby Das MD PCP - General 07/06/[address] [place] [address] ,[address] [place] [address] documented as of this encounter
--- OUTSIDE RECORDS SUMMARY | 2022-07-26 11:01 | XMS_ITS | Encounter Summary ---
:1940 Author Organization [facility] Address [address] [place] [address] Care Team Providers Name Role Phone Bobby Das MD Primary Care Provider Encounter Details Date Type Department Care Team Description 03/04/2018 Documentation Visit [facility] Aries Gutierrez Radiation Oncology - III, [address] [address] [address], [place] [phone] (Wo rk) Social History Tobacco Use Types Packs/Day Years Used Date Current Every Day Smoker Smokeless Tobacco: Never Used Sex Assigned at Date Recorded Not on file documented as of this encounter Miscellaneous Notes Treatment Summary - Delores Gutierrez III, MD - 03/04/2018 1339 EDT Images from the original note were not included. RADIATION ONCOLOGY TREATMENT SUMMARY SITE, HISTOPATHOLOGY AND STAGE: [id number], PSA 12.8 Cascade score 3+4 = 7 adenocarcinoma prostate. He [...] Dr. José. Sj Gutierrez MD Radiation Oncology [phone] (office) [phone] (pager) This note has been prepared with voice recognition software. Please excuse merchandise pickup/receiving associate errors. documented in this encounter Plan of Treatment Not on filedocumented as of this encounter Visit Diagnoses Not on filedocumented in this encounter Care Teams Form Stripper Relationship Specialty Start Date End Date Bobby Das MD PCP - General 07/06/[address] [place] [address],[address] [place] [address] documented as of this encounter
--- OUTSIDE RECORDS SUMMARY | 2022-07-26 11:01 | XMS_ITS | Encounter Summary ---
:1940 Author Organization [facility] Address [address] [place] [address] Care Team Providers Name Role Phone Unknown, Provider Primary Care Provider Encounter Details Date Type Department Care Team Description 07/03/2015 Results Only [facility]- PRISM Abby Das MD [phone] [place] [address],[address] [place], [place] [phone] (Wo rk) Social History [...] 8:54 EDT) Pathology Report: SURGICAL PATHOLOGY REPORT [facility] Reports generated via electronic interface contain abram ginal data; LABORATORY however they are lacking the format of the original re port. SERVICES Caution should be taken when reading/interpreting unfo rmatted reports. Name: ? [place] BAH ? Accession #: ? [id number] ? : ? 1940 (Age: 74) ??M ? Collect Date: ? 07/03/2015 ? Location: ? [facility] ? Receive Date: ? 07/04/20 15 ? Provider: ABBY DAS MD Copy to: ? Final Pathologic Diagnosis: SKIN OF PROTESTANT, RIGHT, EXCISION: - Basal cell carcinoma, infiltrative [...] the above diagnosi s. Specimen(s) Received: R denominational Clinical History: Basal cell carcinoma reexcision Gross [...] City/State/ZIP Code Phon e Number [facility] [address] [place] [address] SERVICES documented in this encounter Visit Diagnoses Not on filedocumented in this encounter Care Teams Fitness Instructor Relationship Specialty Start Date End Date Unknown, Provider, PCP - General 07/03/15 07/05/15 documented as of this encounter
--- OUTSIDE RECORDS SUMMARY | 2022-07-26 11:01 | XMS_ITS | Encounter Summary ---
:1940 Author Organization [facility] Address [address] [place] [address] Care Team Providers Name Role Phone Bobby Das MD Primary Care Provider Reason for Visit Reason Onset Date Comments Prostate Cancer 11/20/2017 Encounter Details Date Type Department Care Team Description 11/20/2017 Orders Only [facility] Aries Gtuierrez Radiation Oncology - [facility], [address] [address] [address], [place], [place] [address] (Wo rk) Social History Tobacco Use Types [...] on filedocumented in this encounter Care Teams Support Architect Relationship Specialty Start Date End Date Bobby Das MD PCP - General 07/06/[address] [place] [address] ,[address] [place] [address] documented as of this encounter
--- OUTSIDE RECORDS SUMMARY | 2022-07-26 11:01 | XMS_ITS | Clinical Summary ---
:1940 Author Organization Address [address] [place] [address] Care Team Providers Name Role Phone Bobby [...] Date Malignant neoplasm of prostate ([facility]) 11/19/2017 Cancer Staging: Clinical stage from 11/19: Stage IIB (cT2a, cN0, cM0, PSA: 12.8, Grade Group: 2) - Signed by Delores Gutierrez III, MD on 11/19/2017 Medical History Medical History Date Comments Cancer ([facility]) (HCC) Hyperlipidemia Family History Medical History Relation [...] T ype Group Dates MEDICARE MEDICARE A/B [id number] 2007-Pre [address] edicare GL sent [id number] [place] [address] [facility] [id number] 2021-Pre [address] Commercial GL [facility] sent [place], [place] [id number] COMPANY Koko Zamora Personal/Family Self 1940 [address] (Home) [place] [address] Koko Zamora Personal/Family Self 1940 [address] ([place]) [place] [address] Care Teams Sizing Machine Operator Relationship Specialty Start Date End Date Bobby Das MD PCP - General 07/06/[address] [place] [address],[address] [place] [address]
--- OUTSIDE RECORDS SUMMARY | 2022-07-26 11:01 | XMS_ITS | Encounter Summary ---
:1940 Author Organization Health system Address [address] [place] [address] Care Team Providers Name Role Phone Bobby Das MD Primary Care Provider Reason for Visit Reason Onset Date Comments Diagnostic Imaging Report 11/25/2017 Encounter Details Date Type Department Care Team Description 11/25/2017 Telephone [facility] Lynn Vargas RN Diagnostic Imaging Radiation Oncology - [address] [place] [address] [place], [place] [phone] [place] [address] Social History Tobacco Use Types Packs/Day Years [...] filedocumented in this encounter Care Teams Transmission Inspector Relationship Specialty Start Date End Date Bobby Das MD PCP - General 07/06/[address] [place] [address] ,[address] [place] [address] documented as of this encounter
--- OUTSIDE RECORDS SUMMARY | 2022-07-26 11:01 | XMS_ITS | Encounter Summary ---
:1940 Author Organization [facility] Address [address] [place] [address] Care Team Providers Name Role Phone Bobby Das MD Primary Care Provider Encounter Details Date Type Department Care Team Description 04/12/2021 Lab Requisition [facility] Outr Resulting Lab, Pathology & Laboratory Provider [facility] [address] [place], [place] [address] Social History Tobacco Use Types Packs/Day Years [...] nature Testosterone 269 229 - 902 ng/dL [facility] Specimen Blood - Venous blood (substance) Narrative [facility] - 04/12/2021 22:19 EDT The results of this assay can be falsley elevated due to the consumption of Biotin. Performing Organization Address City/State/ZIP Code Phon e Number [facility] [address] [place] [address] SERVICES documented in this encounter Visit Diagnoses Not on filedocumented in this encounter Care Teams Crane Man Relationship Specialty Start Date End Date Bobby Das MD PCP - General 07/06/[address] [place] [address] ,[address] [place] [address] documented as of this encounter
--- OUTSIDE RECORDS SUMMARY | 2022-07-26 11:01 | XMS_ITS | Encounter Summary ---
:1940 Author Organization [facility] Address [address] [place] [address] Care Team Providers Name Role Phone Bobby Das MD Primary Care Provider Reason for Visit Reason Onset Date Comments Medication Management 11/21/2017 Encounter Details Date Type Department Care Team Description 11/21/2017 Orders Only [facility] Radiation De Law RN Oncology - [address] [address] Social History Tobacco Use Types Packs/Day Years [...] on filedocumented in this encounter Care Teams Flatwork Ironer Relationship Specialty Start Date End Date Bobby Das MD PCP - General 07/06/[address] [place] [address] ,[address] [place] [address] documented as of this encounter
--- OUTSIDE RECORDS SUMMARY | 2022-07-26 11:01 | XMS_ITS | Encounter Summary ---
:1940 Author Organization [facility] Address [address] [place] [address] Care Team Providers Name Role Phone Bobby Das MD Primary Care Provider Encounter Details Date Type Department Care Team Description 08/28/2020 Lab Requisition [facility] Outr Resulting Lab, Pathology & Laboratory Provider [facility] [address] [place], [place] [phone] Social History Tobacco Use Types Packs/Day Years [...] Organization Address City/State/ZIP Code Phon e Number [email or web address] [place], [place] COVID-19 TESTING (08/28/2020 9:58 EDT) Pathologist [facility] COVID-19 rt-PCR NEGATIVE Negative [facility] Result Comment: LABORATORY 2019-novel Coronavirus [...] Administration's Emergency Use Authorization. Performing Lab [facility] LABORATORY SERVICES Specimen Swab Performing Organization Address City/State/ZIP Code Phon e Number [facility] [address] [place] [address] SERVICES [facility] [place], [place] documented in this encounter Visit Diagnoses Not on filedocumented in this encounter Care Teams Boss Miner Relationship Specialty Start Date End Date Bobby Das MD PCP - General 07/06/[address] [place] [address] ,[address] [place] [address] documented as of this encounter
--- OUTSIDE RECORDS SUMMARY | 2022-07-26 11:01 | XMS_ITS | Encounter Summary ---
:1940 Author Organization [facility] Address [address] [place] [address] Care Team Providers Name Role Phone Bobby Das MD Primary Care Provider Encounter Details Date Type Department Care Team Description 02/25/2018 Documentation Visit [facility] Adama Vargas RN Radiation Oncology - [address] [place] [address] [place] [address] Social History Tobacco Use Types Packs/Day Years Used Date Current Every Day Smoker Smokeless Tobacco: Never Used Sex Assigned at Date Recorded Not on file documented as of this encounter Progress Notes Lynn Vargas RN - 02/25/2018 0853 EDT Koko Zamora requested to be seen [...] on filedocumented in this encounter Care Teams Strike Plate Attacher Relationship Specialty Start Date End Date Bobby Das MD PCP - General 07/06/[address] [place] [address],[address] [place] [address] documented as of this encounter
--- OUTSIDE RECORDS SUMMARY | 2022-07-26 11:01 | XMS_ITS | Encounter Summary ---
:1940 Author Organization [facility] Address [address] [place] [address] Care Team Providers Name Role Phone Bobby Das MD Primary Care Provider Encounter Details Date Type Department Care Team Description 07/16/2019 Hospital Encounter [facility] - Dayne Gutierrez [facility] III, MD [phone] [place] [address] [facility] [address] [place] [address] (Wo rk) Social History Tobacco [...] on filedocumented in this encounter Care Teams Midlevel Provider Relationship Specialty Start Date End Date Bobby Das MD PCP - General 07/06/[address] [place] [address] ,[address] [place] [address] documented as of this encounter
--- OUTSIDE RECORDS SUMMARY | 2022-07-26 11:01 | XMS_ITS | Encounter Summary ---
:1940 Author Organization [facility] Address [address] [place] [address] Care Team Providers Name Role Phone Bobby Das MD Primary Care Provider Encounter Details Date Type Department Care Team Description 06/17/2019 Results Only [facility]- Unknown, PRISM ProviderMD [phone] Social History Tobacco Use Types Packs/Day Years [...] filedocumented in this encounter Care Teams Art Critic Relationship Specialty Start Date End Date Bobby Das MD PCP - General 07/06/[address] [place] [address] ,[address] [place] [address] documented as of this encounter
--- OUTSIDE RECORDS SUMMARY | 2022-07-26 11:01 | XMS_ITS | Encounter Summary ---
:1940 Author Organization [facility] Address [address] [place] [address] Care Team Providers Name Role Phone Bobby Das MD Primary Care Provider Reason for Visit Reason Comments Follow-up Injection Encounter Details Date Type Department Care Team Description 01/05/[address] [facility] Erlin José MD Malignant neoplasm of Urology - Main [address] [place] [address] ([facility] ([facility] (Primary [address] [facility] [place] [address] [address], [place] [address] (Wo rk) Social History Tobacco [...] Progress Notes Chino José MD - 01/05/2018 9584 EST Chief Complaint: Chief Complaint Patient presents with ??? Follow-up Injection HPI: Koko is a 77 y.o. male with prostate cancer. Grant presented with an elevated PSA to 12.8 shaw palpable nodule and on biopsy had 2 out of 12 cores positive for [place] 3+3 and [place] 3+4 prostate cancer. T2a. He previously had [...] Dr. Gutierrez this week See me at [facility] after radiation therapy is complete with a [...] mg documented in this encounter Care Teams Paper And Pulp Mill Worker Relationship Specialty Start Date End Date Bobby Das MD PCP - General 07/06/[address] [place] [address],[address] [place] [address] documented as of this encounter
--- OUTSIDE RECORDS SUMMARY | 2022-07-26 11:01 | XMS_ITS | Encounter Summary ---
:1940 Author Organization [facility] Address [address] [place] [address] Care Team Providers Name Role Phone Bobby Das MD Primary Care Provider Encounter Details Date Type Department Care Team Description 01/16/2018 Results Only [facility] Cancer [facility] Aries Gutierrez Imaging Radiation Oncology - III, [facility] 111 [facility] [address] [place] [address] [address], [place] [address] (Wo rk) Social History Tobacco Use Types [...] on filedocumented in this encounter Care Teams Knowledge Engineer Relationship Specialty Start Date End Date Bobby Das MD PCP - General 07/06/[address] [place] [address] ,[address] [place] [address] documented as of this encounter
--- OUTSIDE RECORDS SUMMARY | 2022-07-26 11:01 | XMS_ITS | Encounter Summary ---
:1940 Author Organization Address [address] [place] [address] Care Team Providers Name Role Phone Bobby Das MD Primary Care Provider Reason for Visit Reason Comments Cancer Encounter Details Date Type Department Care Team Description 02/06/2018 Radiation Therapy [facility] Lynn Vargas RN Malignant neoplasm Visit Radiation Oncology 111 [facility] ([facility]) ([facility]) [address] [place] [address] (Primary Dx) [place] [phone] Social History Tobacco Use Types Packs/Day Years [...] encounter diagnosis was Malignant neoplasm of prostate ([facility]). Assessment: Assessment Completed By: Lynn Vargas RN [...] Visit Diagnoses Diagnosis Malignant neoplasm of prostate ([facility]) (HCC) - Primary Malignant neoplasm of prostate documented in this encounter Care Teams Case Operator Relationship Specialty Start Date End Date Bobby Das MD PCP - General 07/06/[address] [place] [address],[address] [place] [address] documented as of this encounter
--- OUTSIDE RECORDS SUMMARY | 2022-07-26 11:01 | XMS_ITS | Encounter Summary ---
:1940 Author Organization [facility] Address [address] [place] [address] Care Team Providers Name Role Phone Bobby Das MD Primary Care Provider Reason for Visit Reason Onset Date Comments Cancer 02/16/2018 Encounter Details Date Type Department Care Team Description 02/16/2018 Orders Only [facility] Isela Law Maligna nt neoplasm of prostate (HCC-CMS) (Primary Dx); Radiation Oncology - RN Andvamshi n deprivation therapy [address] [address] Social History Tobacco Use Types Packs/Day Years [...] documented in this encounter Care Teams Environmental Technology Professor Relationship Specialty Start Date End Date Bobby Das MD PCP - General 07/06/[address] [place] [address] ,[address] [place] [address] documented as of this encounter
--- OUTSIDE RECORDS SUMMARY | 2022-07-26 11:01 | XMS_ITS | Encounter Summary ---
:1940 Author Organization [facility] Address [address] [place] [address] Care Team Providers Name Role Phone Bobby Das MD Primary Care Provider Reason for Visit Reason Comments Other Encounter Details Date Type Department Care Team Description 03/04/2019 Refill [facility] Cancer Center Radiation Adelfo Gutierrez ld Felix III, Other Oncology - Main [facility] [address] [place] [address] [place] [address] [facility] 2 [place], [place] [address] (Wo rk) Social History [...] documented as of this encounter Care Teams It Administrator Relationship Specialty Start Date End Date Bobby Das MD PCP - General 07/06/[address] [place] [address],[address] [place] [address] documented as of this encounter
--- OUTSIDE RECORDS SUMMARY | 2022-07-26 11:01 | XMS_ITS | Encounter Summary ---
:1940 Author Organization [facility] Address [address] [place] [address] Care Team Providers Name Role Phone Unknown, Provider Primary Care Provider Encounter Details Date Type Department Care Team Description 07/03/2015 Hospital Encounter [facility]- Devi Unknown, Provider, [facility] 0 [facility] [phone] [place] [address] (Work) [phone] Social History Tobacco Use Types Packs/Day Years Used Date Never Assessed Sex Assigned at Date Recorded Not on file documented as of this encounter Discharge Disposition Disposition Code Departure Means Destination Home or Self [facility] documented in this encounter Plan of Treatment Not on filedocumented as of this encounter Visit Diagnoses Not on filedocumented in this encounter Care Teams Brisket Puller Relationship Specialty Start Date End Date Unknown, Provider, PCP - General 07/03/15 07/05/15 documented as of this encounter
--- OUTSIDE RECORDS SUMMARY | 2022-07-31 08:59 | XMS_ITS | Encounter Summary ---
:1940 Author Organization [facility] [place] [address] Care Team Providers Name Role Phone Bobby Das MD Primary Care Provider Reason for Visit Auth/Cert Specialty Diagnoses / Procedures Referred By Contact Refer red To Contact Diagnoses GIB (gastrointestinal bleeding) Abe [facility] [place] [address] Referral ID Status Reason Start Date Expiration Date Visits Requ ested Visits Authorized [id number] 1 1 Encounter Details Date Type Department Care Team Description 05/31/2022 Anesthesia Event Gastroenterology at [place] Elmer Johnson MD [facility] [place] [address] [facility] Yogi Machado CRNA [facility] [place] [address] [place] [address] Anesthesia Record Procedure Summary Procedure Name [...] fossa), DION Carpenter Alysia O, RN right; gknj-lun-biiuux catheter system; 20 gauge; no longer indicated, [...] Procedure Summary Date: 05/31/22 Room / Location: [facility] ENDO 3 / [facility] ENDOSCOPY Anesthesia Start: 1603 Anesthesia Stop: 165 Procedures: EGD, UPPER GI ENDOSCOPY (N/A Trunk) EGD, W CONTROL OF BLEEDING, ANY METHOD Diagnosis: (melena) Surgeons: Giovani Ponce MD Responsible Provider: Elmer Johnson MD Anesthesia Type: MAC ASA Status: 3 All Anesthesia Providers: Anesthesiologist: Elmer Johnson MD PACKAGE CRIMPER: Yogi Dawkins CRNA Vitals Value Taken Time BP 95/62 05/31/22 1720 Temp Pulse Resp 18 05/31/22 1720 SpO2 99 % 05/31/22 1720 Pain Level 0 05/31/22 1720 Patient Location: PACU/[facility] Level of Consciousness: Awake and Alert [...] IR Biopsy Spine 07/20/2019 Bobby Marshall MD [facility] INTERVENTIONL RAD ??? IR VERTEBROPLASTY LUMBAR MULTIPLE LEVELS 07/20/2019 IR Vertebroplasty Lumbar Multiple Levels 07/20/2019 Bobby Marshall MD [facility] INTERVENTIONL RAD ??? IR VERTEBROPLASTY THORACIC SINGLE LEVEL 10/25/2020 IR Vertebroplasty Thoracic Single Level 10/25/2020 Matt Chisholm MD [facility] INTERVENTIONL RAD ??? PRO EMBLC/THRMBC FEMORAL POPLITEAL AORTO-ILIAC ARTERY Left 05/15/2022 EMBOLECTOMY OR THROMBECTOMY, FEMOROPOPLITEAL, AORTOILIAC ARTERY BY LEG INCISION (WRVU 19.48) performed by Fito Summers MD at [facility] MAIN OR ??? PRO UPPER GI ENDOSCOPY, CTRL BLEED 05/31/2022 EGD, W CONTROL OF BLEEDING, ANY METHOD performed by Giovani Ponce MD at [facility] ENDOSCOPY ??? PRO UPPER GI ENDOSCOPY, DIAGNOSTIC N/A 05/31/2022 EGD, UPPER GI ENDOSCOPY performed by Giovani Ponce MD at [facility] ENDOSCOPY Social History Tobacco Use ??? [...] risks discussed with patient. Plan discussed with PACKAGE CRIMPER. Anesthesia Screening documented in this encounter Plan of Treatment Upcoming Encounters Date Type Specialty Care Team Description 08/08/2022 Office Visit Gastroenterology Negra Collins MD [facility] GASTROENTEROLOGY DEPT [place], [place] [address] (Wo rk) 09/05/2022 Appointment Cardiology Trinity Reid MD [facility] CARDIOLOGY [place], [place] [address] (Wo rk) 09/05/2022 Office Visit Cardiology Trinity Reid MD [facility] CARDIOLOGY [place], [place] [address] (Wo rk) documented as of [...] documented in this encounter Care Teams Senior Contracts Manager Relationship Specialty Start Date End Date Bobby Das MD PCP - General 10/02/[address] [place] [address] [place] [phone] documented as of this encounter
--- OUTSIDE RECORDS SUMMARY | 2022-07-31 08:59 | XMS_ITS | Encounter Summary ---
:1940 Author Organization [facility] [place] [address] Care Team Providers Name Role Phone Bobby Das MD Primary Care Provider Encounter Details Date Type Department Care Team Description 06/25/2022 Surgery [place] [facility] Giovani Ponce, EGD, UPPER GI [facility] Bobby [place] [address] [facility] [phone] [place], [place] [address] Social History Tobacco Use Types [...] the day after the procedure, use an cpdz-hig-vcmsyzv spray to numb your throat. Sucking on [...] occurs, please contact your Doctor. Please call [phone] before 8pm Mon-Fri with problems, questions or concerns. If you call after 8pm or on weekends, call the Hospital at [phone] and ask to speak to the Speed Reading Teacher monogram and letter paster and the jointer machine operator will contact that person for you. When should you call for help? Call [phone] anytime you think you may need emergency [...] any problems. Where can you learn more? [facility] View your After Visit Summary and more online at [email or web address] If you would like to provide feedback about your hospital experience, please call the Office of Patient and Family Relations at . If you have received this After Visit Summary in error, please immediately return it in person to the department, or notify the [facility] Privacy Office by calling toll free at between the hours of 8AM and 5PM to arrange for our retrieval of the documents at no cost to you. Content Version: 12.2 ?? 5008-4900 [employer]. Care instructions adapted under license by [facility]. If you have questions about a medical condition or this instruction, always ask your healthcare professional. [employer] disclaims any warranty or liability for [...] occurs, please contact your Doctor. Please call [phone] before 8pm Mon-Fri with problems, questions or concerns. If you call after 8pm or on weekends, call the Hospital at [phone] and ask to speak to the Speed Reading Teacher monogram and letter paster and the jointer machine operator will contact that person for you. When should you call for help? Call [phone] anytime you think you may need emergency [...] any problems. Where can you learn more? [facility] View your After Visit Summary and more online at [email or web address] If you would like to provide feedback about your hospital experience, please call the Office of Patient and Family Relations at . If you have received this After Visit Summary in error, please immediately return it in person to the department, or notify the [facility] Privacy Office by calling toll free at between the hours of 8AM and 5PM to arrange for our retrieval of the documents at no cost to you. Content Version: 12.2 ?? 6084-8858 [employer]. Care instructions adapted under license by [facility]. If you have questions about a medical condition or this instruction, always ask your healthcare professional. [employer] disclaims any warranty or liability for your [...] 21 (FLONASE) 50 mcg/actuation Nare route daily [place], Suspension as needed. fluorouraciL (EFUDEX) 5 % [...] ischemia I99.8 ??? Coronary artery disease involving [place] coronary artery of [place] heart without angina nhofeffeV04.10 ??? HFrEF (heart failure with reduced ejection [...] MD [facility] GASTROENTEROLOGY DEPT [place], [place] [address] (Wo rk) 09/05/2022 Appointment Cardiology Trinity Reid MD [facility] CARDIOLOGY [place], [place] [address] (Wo rk) 09/05/2022 Office Visit Cardiology Trinity Reid MD [facility] CARDIOLOGY [place], [place] [address] (Wo rk) documented as of [...] [facility] Range Method Time Signature UPPER GI [facility] ENDOSCOPY Endoscopy Procedure Date: 06/25/2022 10:33 AM ? Patient Name: Koko Zamora ? Date of : 1940 ? Age: 81 ? Order #: [id number] ? Instrument Name: [id number]- [id number] ? Procedure: ? Upper GI endoscopy Indications: ? Recent gastrointestinal bleeding Providers: ? Giovani Ponce, Isi puente, ? Brissa Vee RN, Darrell ? Confalone Referring MD: ?[facility]: ? Propofol per Anesthesia [...] Component Value Ref Test Analysis Performed At [facility] Method Time Signature COLONOSCOPY [facility] Endoscopy Procedure Date: 06/25/2022 10:33 AM ? Patient Name: Koko Zamora ? Date of : 1940 ? Age: 81 ? Order #: [id number] ? Instrument Name: EC-760P- [id number] ? Procedure: ? Colonoscopy Indications: ? Gastrointestinal [...] Procedure Code(s): ? --- Professional --- ? 43251, Colonoscopy, flexib le; with ? control of [...] of sigmoid ? colon CPT copyright 2021 [employer]. All rights reserved. The codes documented in this report are preliminary and upon store planner review may be revised to meet current [...] Procedure) documented in this encounter Care Teams Animal Pathologist Relationship Specialty Start Date End Date Bobby Das MD PCP - General 10/02/[address] [place] [address] [place] [phone] documented as of this encounter
--- OUTSIDE RECORDS SUMMARY | 2022-07-31 08:59 | XMS_ITS | Encounter Summary ---
:1940 Author Organization [facility] Address [facility] [place] [address] Care Team Providers Name Role Phone Bobby Das MD Primary Care Provider Encounter Details Date Type Department Care Team Description 06/24/2022 Telephone Gastroenterology at [place] Alan August MD [facility] [place] [address] GASTROENTEROLOGY DEPT [phone] [place], [place] [address] (Wo rk) Social History Tobacco [...] data. [facility] [...] and no diverticulosis. This was done at [facility]. HgB 8.6 today. There has [...] Collins MD [facility] GASTROENTEROLOGY DEPT [place], [place] [address] (Wo rk) 09/05/2022 Appointment Cardiology Trinity Reid MD [facility] CARDIOLOGY [place], [place] [address] (Wo rk) 09/05/2022 Office Visit Cardiology Trinity Reid MD [facility] CARDIOLOGY [place], [place] [address] (Wo rk) documented as of this encounter Visit Diagnoses Not on filedocumented in this encounter Care Teams Rail Car Loader Relationship Specialty Start Date End Date Bobby Das MD PCP - General 10/02/[address] [place] [address] [place] [phone] documented as of this encounter
--- OUTSIDE RECORDS SUMMARY | 2022-07-31 08:59 | XMS_ITS | Encounter Summary ---
:1940 Author Organization [facility] [place] [address] Care Team Providers Name Role Phone Bobby Das MD Primary Care Provider Encounter Details Date Type Department Care Team Description 06/19/2022 Telephone Cardiology [place] [facility] Jimenez[facility] [place] [address] Social History Tobacco Use Types Packs/Day [...] Zamora: Requesting a referral to Cardiac Rehab [facility] Forward to Dr Reid documented in this encounter Plan of Treatment Upcoming Encounters Date Type Specialty Care Team Description 08/08/2022 Office Visit Gastroenterology Negra Collins MD [facility] GASTROENTEROLOGY DEPT [place], [place] [address] (Wo rk) 09/05/2022 Appointment Cardiology Trinity Reid MD [facility] CARDIOLOGY [place], [place] [address] (Wo rk) 09/05/2022 Office Visit Cardiology Trinity Reid MD [facility] CARDIOLOGY [place], [place] [address] (Wo rk) documented as of this encounter Visit Diagnoses Not on filedocumented in this encounter Care Teams Voice Coach Relationship Specialty Start Date End Date Bobby Das MD PCP - General 10/02/[address] [place] [address] [place] [phone] documented as of this encounter
--- OUTSIDE RECORDS SUMMARY | 2022-07-31 08:59 | XMS_ITS | Encounter Summary ---
:1940 [place] [address] Care Team Providers Name Role Phone Bobby Das MD Primary Care Provider Reason for Visit Reason Comments Dizziness Auth/Cert Specialty Diagnoses / Procedures Referred By Contact Refer red To Contact Diagnoses GIB (gastrointestinal bleeding) Abe [facility] [place] [address] Referral ID Status Reason Start Date Expiration Date Visits Requ ested Visits Authorized [id number] 1 1 Encounter Details Date Type Department Care Team Description 05/31/2022 - Hospital Encounter Intermediate Special Dixon Hinds MD [facility] [place] [address] GIB 06/02/2022 Care Unit [place] [address] (gastrointestinal [facility] [place] [address] bleeding) ([facility] [place] [address] Dx) [place] [address] Social History Tobacco Use Types Packs/Day Years [...] switching to a different bloodthinner with the qualitative field project manager outpatient. Call your doctor or seek medical [...] switchingto a different blood thinner with your qualitative field project manager as an outpatient Stopped Medications - Aspirin - Valsartan - Speak with your qualitative field project manager about the timing of restarting this Follow-up Appointments Future Appointments Date Time Provider Department Center 06/10/2022 11:00 AM Loretta Cohen MD [facility] 06/13/2022 7:30 AM Edson [place]os [place] [facility] VAS LAB [facility] 06/13/2022 8:00 AM Fito Summers MD [facility] V SURG [facility] 06/13/2022 10:00 AM Alan Reid MD [address] Your Inpatient Medical Team at [facility] Name(s) of your inpatient provider(s): Dr. John Ames For questions regarding issues relating to your hospitalization on the Hospital Medicine Service, please contact your inpatient physician through the [facility] Rags Laborer [phone]. Issues after hours and on weekends will be handled by the Hospitalist staff on-call. Your Primary Care Provider Bobby Das MD [phone] Future Appointments and Orders Future Appointments and Orders Future Appointments Provider Department Dept Phone 06/10/2022 11:00 AM Loretta Cohen MD Dermatology [facility] Arrive at: Author Agent [address] [place] [phone] 06/13/2022 7:30 AM Edson [place]os [place] Vascular Lab at [facility] Arrive at: Author Agent Area [phone] 06/13/2022 8:00 AM Fito Summers MD Vascular Surgery at [facility] Arrive at: Author Agent Area 06/13/2022 10:00 AM Alan Reid MD Cardiology at [facility] Arrive at: Author Agent Area [phone] For questions regarding this document or issues relating to this hospitalization on the Medical Service, please contact your inpatient physician through the [facility] Rags Laborer . Issues after hours and on weekends [...] switching to a different bloodthinner with the qualitative field project manager outpatient. Call your doctor or seek medical [...] switchingto a different blood thinner with your qualitative field project manager as an outpatient Stopped Medications - Aspirin - Valsartan - Speak with your qualitative field project manager about the timing of restarting this Follow-up Appointments Future Appointments Date Time Provider Department Center 06/10/2022 11:00 AM Loretta Cohen MD [facility] 06/13/2022 7:30 AM Edson [place] [facility] VAS LAB ILDA POWELL 06/13/2022 8:00 AM Fito Summers MD [facility] V SURG [facility] 06/13/2022 10:00 AM Alan Reid MD [facility] CARD 4A [facility] Your Inpatient Medical Team at [facility] Name(s) of your inpatient provider(s): Dr. John Ames For questions regarding issues relating to your hospitalization on the Hospital Medicine Service, please contact your inpatient physician through the [facility] Rags Laborer [phone]. Issues after hours and on weekends will be handled by the Hospitalist staff on-call. Your Primary Care Provider Bobby Das MD [phone] documented in this encounter Medications at Time [...] 04/12/20 21 (FLONASE) 50 mcg/actuation Nare route [place], Suspension daily as needed. fluorouraciL (EFUDEX) 5 [...] spent >30 minutes (Day of Discharge Code 92254) involved in the final examination of the [...] were not included. Hospital Medicine Progress Note [place] Team - Pager #[phone] Admit Date: 05/31/2022 Name: Koko Zamora : [...] Kurt Ames MD Internal Medicine, PGY-1 Medicine [place] Team #[id number] Associated attestation - John Jolley MD - 06/01/2022 5:02 PM EDT [facility] Medicine -- Attending Progress Note Please [...] were not included. [facility] Medicine (#[id number]) History and Physical Patient info: Name: Koko Zamora : 1940 PCP: Bobby Das MD PCP phone number: [phone] Date of Admission: 05/31/2022 ( Hospital Day [...] IR Biopsy Spine 07/20/2019 Bobby Marshall MD [facility] INTERVENTIONL RAD ??? IR VERTEBROPLASTY LUMBAR MULTIPLE LEVELS 07/20/2019 IR Vertebroplasty Lumbar Multiple Levels 07/20/2019 Bobby Marshall MD [facility] INTERVENTIONL RAD ??? IR VERTEBROPLASTY THORACIC SINGLE LEVEL 10/25/2020 IR Vertebroplasty Thoracic Single Level 10/25/2020 Matt Chisholm MD [facility] INTERVENTIONL RAD ??? PRO EMBLC/THRMBC FEMORAL POPLITEAL AORTO-ILIAC ARTERY Left 05/15/2022 EMBOLECTOMY OR THROMBECTOMY, FEMOROPOPLITEAL, AORTOILIAC ARTERY BY LEG INCISION (WRVU 19.48) performed by Fito Summers MD at [facility] MAIN OR No family history [...] 11 ??? fluticasone propionate (FLONASE) 50 mcg/actuation [place], Suspension as needed. ??? fluorouraciL (EFUDEX) 5 [...] Gas) No results found for: PHART, PO2ART, VNY5QCV, QTJ4XXA Microbiology: N/A Pertinent radiology/diagnostic studies: Recent prior [...] 05/31/2022 3:58 PM EDT Norepinephrine pulled from [facility] for soft BPs. Upon arrival to pt's [...] AM EDT Pt brought to XR by 1st grade teacher Brittany Ramirez MD - 05/31/2022 [...] who have questions please contact the health direct care supervisor that requested your imaging first. Chest PA [...] who have questions please contact the health direct care supervisor that requested your imaging first. Course as [...] recommendations from Brittany Tavares MD Resident 05/31/22 [id number] Associated attestation - Regina Hinds MD - [...] soft blood pressures, MD made aware. 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 Patient reported [...] Heparin gtt - plan to bridge to [facility] Discharge planning Increase strength & mobility INDIVIDUALIZED [...] from the original note were not included. [facility] NAOMY Pena [phone] INPATIENT CARDIOLOGY CONSULT NOTE Date of Consultation: 06/01/2022 Admit Date: 05/31/2022 Place of Service: IS86/IS86-A Referring Attending: REGINA HINDS COLEMAN W FRIEDMAN, HARLEY P Responsible Roll Operator: Dr. Rizo Hospital Day 1 day [...] LCX and LCx stent) who presented to [facility] on 05/31/2022 for [...] IR Biopsy Spine 07/20/2019 Bobby Marshall MD [facility] INTERVENTIONL RAD ??? IR VERTEBROPLASTY LUMBAR MULTIPLE LEVELS 07/20/2019 IR Vertebroplasty Lumbar Multiple Levels 07/20/2019 Bobby Marshall MD [facility] INTERVENTIONL RAD ??? IR VERTEBROPLASTY THORACIC SINGLE LEVEL 10/25/2020 IR Vertebroplasty Thoracic Single Level 10/25/2020 Matt Chisholm MD [facility] INTERVENTIONL RAD ??? PRO EMBLC/THRMBC FEMORAL POPLITEAL AORTO-ILIAC ARTERY Left 05/15/2022 EMBOLECTOMY OR THROMBECTOMY, FEMOROPOPLITEAL, AORTOILIAC ARTERY BY LEG INCISION (WRVU 19.48) performed by Fito Summers MD at [facility] MAIN OR ALLERGIES: Allergies Allergen [...] time ??? fluticasone propionate (FLONASE) 50 mcg/actuation [place], Suspension 1 spray by Each Nare route [...] from 05/31/2022 in Intermediate Special Care Unit [facility] ED to Hosp-Admission (Discharged) from 05/15/2022 in Intermediate Cardiac Care Unit [facility] Weight 77.1 kg (170 lb) [...] Neurology: Without focal deficit ECG: Echocardiogram: 05/16/2022 [facility] 05/20/2022 Coronary Angiography: Dominance: Right [...] 3.5 guiding catheter and a 3.[address] 20 Mhz. Imaging was successful. Image [...] A premounted 2.75 x 30 mm [place]y [place] (AMPARO) was deployed with a maximum inflation [...] may require modification of this regimen. Consult [facility] Interventional Cardiology for [...] Hb drop. Unknown source. has had a [facility] with stent placed and revascularization [...] who have questions please contact the health direct care supervisor that requested your imaging first. [employer] 48 [...] who have questions please contact the health direct care supervisor that requested your imaging first. Recent Labs [...] on xarelto, ischemic systolic heart failure (recent [facility] 05/20/2022 with 2V disease OM1 and distal RCA, had ostial LCX and LCx stent), recent admission for acutelimb ischemia LLE, where he had left common femoral transverse arteriotomy and primary repair, thromboembolectomy of the SFA, profunda and common femoral artery with 4 compartment fasciotomies, who presented to [facility] on 05/31/2022 for [...] attestation for additional insight. Rossy Anaya MD [facility] Esthetician/Spa Coordinator, PGY-5 Inpatient Cardiology Consults Pager #[phone] Please check Qgenda for on-call cardiology consults [...] A&Ox 4. On room air. VSS. LBM: FLIPPING MACHINE OPERATOR. Adequate urine output, urinal at bedside, [...] 180 days) Any patient receiving care in [place] must abide by [place] law. The hierarchy [...] (i) The agent with financial power of associate attorney or a conservator appointed in [...] walker - rolling Home Address confirmed as: [address] [place] [phone] Social & Family Supports: All names listed below confirmed with patient as current and correct Extended Emergency Contact Information Primary Emergency Contact: Ursula Zamora Address: [address] [place] [id number] [facility] Relation: Spouse Current Care Provided by: [...] Type: *No Product type* / Secondary Insurance: [facility] Secondary Insurance? (Only Medicare A&B): Yes ; Prescription Coverage: Yes Preferred Pharmacy: [facility] - [facility], [place] - [address] [facility] [address] [facility] [address] [facility] [address] Status: Patient is a : No Primary Care Provider: Bobby Das MD [phone] Patient/Caregiver Goals of Treatment: Patient plans to [...] with transition of care planning. ASH Garcia [employer] [facility] Medicine/ Medical Specialties Pager- [...] Operative Note Patient Name: Koko Rioson : [id number] MR#: [id number] Case Date: 05/31/2022 Surgeon: Surgeon(s) and Role: [...] stomach. He has had colonoscopies before in [place] - notes first ever he had 6 polyps removed but last colo 5 yrs ago was normal. He lives in [facility]. Currently light-headedness is improved. No [...] IR Biopsy Spine 07/20/2019 Bobby Marshall MD [facility] INTERVENTIONL RAD ??? IR VERTEBROPLASTY LUMBAR MULTIPLE LEVELS 07/20/2019 IR Vertebroplasty Lumbar Multiple Levels 07/20/2019 Bobby Marshall MD [facility] INTERVENTIONL RAD ??? IR VERTEBROPLASTY THORACIC SINGLE LEVEL 10/25/2020 IR Vertebroplasty Thoracic Single Level 10/25/2020 Matt Chisholm MD [facility] INTERVENTIONL RAD ??? PRO EMBLC/THRMBC FEMORAL POPLITEAL AORTO-ILIAC ARTERY Left 05/15/2022 EMBOLECTOMY OR THROMBECTOMY, FEMOROPOPLITEAL, AORTOILIAC ARTERY BY LEG INCISION (WRVU 19.48) performed by Fito Summers MD at [facility] MAIN OR SOCIAL HX: Social [...] sounds, tympanic to percussion RECTAL: performed with primer assembler present, no overt masses, fissures, external hemorrhoids, [...] who have questions please contact the health direct care supervisor that requested your imaging first. Abdomen & [...] [facility] GASTROENTEROLOGY DEPT [place], [place] [address] (Wo bob) 09/05/2022 Appointment Cardiology Trinity Reid MD [facility] CARDIOLOGY [place], [place] [address] (Wo bob) 09/05/2022 Office Visit Cardiology Trinity Reid MD [facility] ER DR CARDIOLOGY [place], [place] [address] (Wo rk) documented as [...] EDT) athologist Signature Neutrophils % 61.3 % [facility] LABORATORY Neutr Abs (ANC) 4.44 1.70 - [facility] 6.10 [facility] x10(3)/[facility] LABORATORY Lymphocytes % 25.2 % [facility] LABORATORY Lymphocytes Abs 1.8 0.9 - 3.2 [facility] x10(3)/[facility] LABORATORY Monocytes % 10.0 % [facility] LABORATORY Monocyte Abs 0.7 0.3 - 0.9 [facility] x10(3)/[facility] LABORATORY Eosinophils % 2.1 % [facility] LABORATORY Eosinophils Abs 0.2 0.0 - 0.4 [facility] x10(3)/[facility] LABORATORY Basophils % 0.7 % [facility] LABORATORY Basophils Abs 0.0 0.0 - 0.1 [facility] x10(3)/[facility] LABORATORY Immature Gran % 0.70 % [facility] [...] Gran Abs 0.05 (H) 0.00 - 0.04 x10(3)/[facility] LABORATORY Specimen Anatomical Collection Method Collection Time Receive d Time (Source) Location / / Volume Laterality Blood 06/02/2022 8:20 AM 8:25 EDT AM EDT Resulting Agency Comment Spec In Lab Kurt Ames MD HEMATOLOGY ORDERABLES Performing Organization Address City/State/ZIP Code Phon e Number [place] [id number] [facility] [address]ORY [address] (ABNORMAL) Hemogram (06/02/2022 8:20 AM EDT) Analysis Performed At Patho logist Time Signature WBC 7.2 4.0 - 9.5 [place] x10(3)/[facility] LABORATORY RBC 2.74 (L) 4.58 - [facility] 5.54 [facility] x10(6)/[facility] LABORATORY Hemoglobin 8.7 (L) 13.7 - [facility] 16.[facility] g/dL [facility] LABORATORY Hematocrit 25.7 (L) 40.5 - [facility] 48.5 % [facility] LABORATORY MCV 93.8 (H) 82.9 - [facility] 93.1 [facility] LABORATORY MCH 31.8 27.5 - [place] 32.1 pg [facility] LABORATORY MCHC 33.9 32.0 - [place] 35.7 g/dL [facility] LABORATORY Platelets 260 145 - 357 [facility] x10(3)/[facility] LABORATORY RDWSD 51.0 (H) 36.0 - [place] 45.0 [facility] LABORATORY RDWCV 14.9 (H) 11.4 - [facility] XIAO 13.8 % [facility] LABORATORY MPV 10.0 7.6 - 12.9 [facility] LABORATORY nRBC % Auto 0.0 % [facility] LABORATORY nRBC Abs Auto 0.000 0.000 - [place] 0.000 [facility] x10(3)/[facility] LABORATORY Specimen Anatomical Collection Method Collection Time Receive d Time (Source) Location / / Volume Laterality Blood 06/02/2022 8:20 AM 8:25 EDT AM EDT Resulting Agency Comment Spec In Lab Kurt Ames MD HEMATOLOGY ORDERABLES Performing Organization Address City/[facility]/[place] [address] Heparin (unfractionated) Level (06/02/2022 6:30 AM EDT) athologist Signature Heparin UFH 0.39 IU/mL [facility] LABORATORY Comment: Heparin (anti-Xa) levels [...] Organization Address City/State/[place] [address] Heparin (unfractionated) Level (06/02/2022 12:30 AM EDT) athologist Signature Heparin UFH 0.81 IU/mL [facility] LABORATORY Comment: Heparin (anti-Xa) levels [...] [facility]/ZIP Code Phon e Number [address] Magnesium (06/02/2022 12:30 AM EDT) athologist Signature Magnesium 0.83 0.69 - 1.07 [facility] mmol/L [facility] LABORATORY Specimen Anatomical Collection Method Collection Time Receive d Time (Source) Location / / Volume Laterality Blood 06/02/2022 12:30 06/02/2022 AM EDT 12:40 AM EDT Resulting Agency Comment Spec In Lab Mahendra Victor MD CHEMISTRY ORDERABLES Performing Organization Address City/[facility] Phon e Number [address] (ABNORMAL) Basic Metabolic Panel (non-fasting) (06/02/2022 12:30 AM EDT) athologist Signature Glucose Lvl 151 65 - 199 [facility] mg/dL [facility] LABORATORY Comment: Diabetes: >=200 mg/dL [...] City/State/ZIP Code Phon e Number [place] [phone] HOSPITAL LAB[address]ATORY Drive (ABNORMAL) Differential, Automated (06/01/2022 7:29 PM EDT) P athologist Signature Neutrophils % 68.8 % [facility] LABORATORY Neutr Abs (ANC) 5.34 1.70 - [facility] 6.10 [facility] x10(3)/[facility] LABORATORY Lymphocytes % 19.6 % [facility] LABORATORY Lymphocytes Abs 1.5 0.9 - 3.2 [facility] x10(3)/[facility] LABORATORY Monocytes % 8.1 % [facility] LABORATORY Monocyte Abs 0.6 0.3 - 0.9 [facility] x10(3)/[facility] LABORATORY Eosinophils % 1.8 % [facility] LABORATORY Eosinophils Abs 0.1 0.0 - 0.4 [facility] x10(3)/[facility] LABORATORY Basophils % 0.8 % [facility] LABORATORY Basophils Abs 0.1 0.0 - 0.1 [facility] x10(3[facility] LABORATORY Immature Gran % 0.90 % [facility] LABORATORY Comment: Immature granulocytes(IG's)percentage an d absolute count will include metamyelocytes, myelocytes, and promyelo cytes. Blood smears from CBCs yielding IG's will be scanned manually for concor dance. If this scan disagrees with the automated IG or if promyelocytes are not ed, a manual differential will be performed. Rain Gran Abs 0.07 (H) 0.00 - 0.04 x10(3)/[facility] LABORATORY Specimen Anatomical Collection Method Collection Time Receive d Time (Source) Location / / Volume Laterality Blood 06/01/2022 7:29 PM 7:29 EDT PM EDT Resulting Agency Comment Spec In Lab Kurt Ames MD HEMATOLOGY ORDERABLES Performing Organization Address City/State/[place] [address] (ABNORMAL) Hemogram (06/01/2022 7:29 PM EDT) Analysis Performed At Patho logist Time Signature WBC 7.8 4.0 - 9.5 [facility] x10(3)/[facility] LABORATORY RBC 2.65 (L) 4.58 - [place] 5.54 [facility] x10(6)/[facility] LABORATORY Hemoglobin 8.3 (L) 13.7 - [facility] 16.5 g/dL [facility] LABORATORY Hematocrit 24.8 (L) 40.5 - [place] 48.5 % [facility] LABORATORY MCV 93.6 (H) 82.9 - [facility] XIAO 93.1 [facility] LABORATORY MCH 31.3 27.5 - [place] 32.1 pg [facility] LABORATORY MCHC 33.5 32.0 - [facility] XIAO 35.7 g/dL [facility] LABORATORY Platelets 263 145 - 357 [facility] x10(3)/[facility] LABORATORY RDWSD 52.8 (H) 36.0 - [place] 45.0 [facility] LABORATORY RDWCV 15.4 (H) 11.4 - [facility] XIAO 13.8 % [facility] LABORATORY MPV 10.4 7.6 - 12.9 [facility] nRBC % Auto 0.0 % [facility] LABORATORY nRBC Abs Auto 0.000 0.000 - [place] 0.000 [facility] x10(3)/[facility] LABORATORY Specimen Anatomical Collection Method Collection Time Receive d Time (Source) Location / / Volume Laterality Blood 06/01/2022 7:29 PM 2 7:29 EDT PM EDT Resulting Agency Comment Spec In Lab Kurt Ames MD HEMATOLOGY ORDERABLES Performing Organization Address City/[facility]/ZIP Code Phon e Number [address] Heparin (unfractionated) Level (06/01/2022 7:29 PM EDT) P athologist Signature Heparin UFH 0.81 IU/mL [facility] LABORATORY Comment: Heparin (anti-Xa) levels [...] Organization Address City/State/[place] [address] (ABNORMAL) Heparin (unfractionated) Level (06/01/2022 11:32 AM EDT) Patholo gist Method Time Signature Heparin UFH 1.05 IU/mL [facility] Level (Critical) [facility] LABORATORY Comment: Critical Result called [...] Organization Address City/State/[place] [address] (ABNORMAL) Differential, Automated (06/01/2022 5:56 AM EDT) [facility] Method Time Signature Neutrophils % 62.7 % [facility] LABORATORY Neutr Abs (ANC) 6.11 (H) 1.70 - [facility] 6.10 [facility] x10(3)/[facility] LABORATORY Lymphocytes % 23.5 % [facility] LABORATORY Lymphocytes Abs 2.3 0.9 - 3.2 [facility] x10(3)/[facility] LABORATORY Monocytes % 10.0 % [facility] LABORATORY Monocyte Abs 1.0 (H) 0.3 - 0.9 [facility] x10(3)/[facility] LABORATORY Eosinophils % 2.2 % [facility] LABORATORY Eosinophils Abs 0.2 0.0 - 0.4 [facility] x10(3)/[facility] LABORATORY Basophils % 0.9 % [facility] LABORATORY Basophils Abs 0.1 0.0 - 0.1 [facility] x10(3)/[facility] LABORATORY Immature Gran % 0.70 % [facility] [...] Gran Abs 0.07 (H) 0.00 - 0.04 x10(3)/[facility] LABORATORY Specimen Anatomical Collection Method Collection Time Receive d Time (Source) Location / / Volume Laterality Blood 06/01/2022 5:56 AM 6:05 EDT AM EDT Resulting Agency Comment Spec In Lab Arpita Valle MD HEMATOLOGY ORDERABLES Performing Organization Address City/State/ZIP Code Phon e Number [place] [phone] HOSPITAL LABORATORY Drive (ABNORMAL) Hemogram (06/01/2022 5:56 AM EDT) Analysis Performed At Patho logist Time Signature WBC 9.7 (H) 4.0 - 9.5 [facility] x10(3)/[facility] LABORATORY RBC 2.83 (L) 4.58 - [facility] XIAO 5.54 [facility] x10(6)/[facility] LABORATORY Hemoglobin 9.0 (L) 13.7 - [facility] 16.5 g/dL [facility] LABORATORY Hematocrit 26.7 (L) 40.5 - [facility] XIAO 48.5 % [facility] LABORATORY MCV 94.3 (H) 82.9 - [facility] 93.1 fL [facility] LABORATORY MCH 31.8 27.5 - [place] [facility] 32.1 pg [facility] LABORATORY MCHC 33.7 32.0 - [facility] XIAO 35.7 g/dL [facility] LABORATORY Platelets 250 145 - 357 [facility] x10(3)/[facility] LABORATORY RDWSD 54.3 (H) 36.0 - [place] [facility] 45.0 [facility] LABORATORY RDWCV 15.9 (H) 11.4 - [place] 13.8 % [facility] LABORATORY MPV 10.5 7.6 - 12.9 [facility] XIAO [facility] LABORATORY nRBC % Auto 0.0 % [facility] LABORATORY nRBC Abs Auto 0.000 0.000 - [facility] XIAO 0.000 [facility] x10(3)/[facility] LABORATORY Specimen Anatomical Collection Method Collection Time Receive d Time (Source) Location / / Volume Laterality Blood 06/01/2022 5:56 AM 2 6:05 EDT AM EDT Resulting Agency Comment Spec In Lab Arpita Valle MD HEMATOLOGY ORDERABLES Performing Organization Address City/State/[place] [address] Heparin (unfractionated) Level (06/01/2022 4:30 AM EDT) athologist Signature Heparin UFH 0.68 IU/mL [facility] LABORATORY Comment: Heparin (anti-Xa) levels [...] Organization Address City/State/[place] [address] (ABNORMAL) Urinalysis with reflex Culture (06/01/2022 4:00 AM EDT) Patholo gist Method Time Signature Glucose UA 500 Negative [facility] (Critical) mg/dL [facility] LABORATORY Comment: Urinalysis result NOT critical without a combination of Glucose greater than or equal to 500 mg/dL AND Ketones greate r than or equal to 80 mg/dL Protein UA Negative Negative mg/dL [facility] LABORATORY Bilirubin UA Negative Negative mg/dL [facility] LABORATORY Comment: Clinical correlation required for positi ve Urine Bilirubin results as false positive may occur with some drugs and d rug related products. If a false positive is suspected a serum total bili quarles should be considered if clinically indicated. Urobilinogen UA Normal Normal mg/dL [facility] LABORATORY pH UA 6.0 5.0 - 8.0 [facility] LABORATORY Blood UA Negative Negative mg/dL [facility] LABORATORY Ketones UA Negative Negative mg/dL [facility] LABORATORY Nitrite UA Negative Negative [facility] LABORATORY Leukocytes UA Negative Negative [facility] LABORATORY Appearance UA Clear Clear [facility] LABORATORY Spec [place] UA >=1.030 (A) 1.005 - 1.030 [facility] LABORATORY Color UA Yellow Yellow [facility] LABORATORY Culture Reflexed No [facility] LABORATORY Specimen Anatomical Collection Method Collection Time Receive d Time (Source) Location / / Volume Laterality Clean Catch 06/01/2022 4:00 AM 4:26 Urine EDT AM EDT Resulting Agency Comment Spec In Lab Mahendra Victor MD URINE ORDERABLES Performing Organization Address City/State/ZIP Code Phon e Number [address] Magnesium (06/01/2022 1:00 AM EDT) P athologist Signature Magnesium 0.93 0.69 - 1.07 [facility] mmol/L [facility] LABORATORY Specimen Anatomical Collection Method Collection Time Receive d Time (Source) Location / / Volume Laterality Blood 06/01/2022 1:00 AM 2 1:37 EDT AM EDT Resulting Agency Comment Spec In Lab Mahendra Victor MD CHEMISTRY ORDERABLES Performing Organization Address City/State/ZIP Code Ph[place] [address] (ABNORMAL) Basic Metabolic Panel (non-fasting) (06/01/2022 1:00 AM EDT) P athologist Signature Glucose Lvl 148 65 - 199 [facility] mg/dL [facility] LABORATORY Comment: Diabetes: >=200 mg/dL [...] 31 mmol/L [facility] LABORATORY Anion Gap 9 5 - 15 mmol/L [facility] LABORATORY Calcium 8.6 8.5 - 10.5 mg/dL [facility] LABORATORY Estimated GFR 91 >=60 mL/min/1.73 m?? [facility] LABORATORY Comment: [...] Organization Address City/State/[place] [address] (ABNORMAL) Differential, Automated (06/01/2022 12:00 AM EDT) athologist Signature Neutrophils % 64.6 % [facility] LABORATORY Neutr Abs (ANC) 5.60 1.70 - [facility] 6.10 [facility] x10(3)/[facility] LABORATORY Lymphocytes % 22.4 % [facility] LABORATORY Lymphocytes Abs 1.9 0.9 - 3.2 [facility] x10(3)/[facility] LABORATORY Monocytes % 9.5 % [facility] LABORATORY Monocyte Abs 0.8 0.3 - 0.9 [facility] x10(3)[facility] LABORATORY Eosinophils % 2.1 % [facility] LABORATORY Eosinophils Abs 0.2 0.0 - 0.4 [facility] x10(3)[facility] LABORATORY Basophils % 0.6 % [facility] LABORATORY Basophils Abs 0.0 0.0 - 0.1 [facility] x10(3)/[facility] LABORATORY Immature Gran % 0.80 % [facility] LABORATORY Comment: Immature granulocytes(IG's)percentage an d absolute count will include metamyelocytes, myelocytes, and promyelo cytes. Blood smears from CBCs yielding IG's will be scanned manually for concor dance. If this scan disagrees with the automated IG or if promyelocytes are not ed, a manual differential will be performed. Rain Gran Abs 0.07 (H) 0.00 - 0.04 x10(3)/[facility] LABORATORY Specimen (Source) Anatomical Collection Method Collection Time Re ceived Time Location / / Volume Laterality Blood 06/01/2022 06/01/2022 12:1 0 AM EDT Resulting Agency Comment Spec In Lab Arpita Valle MD HEMATOLOGY ORDERABLES Performing Organization Address City/State/[place] [address] (ABNORMAL) Hemogram (06/01/2022 12:00 AM EDT) Analysis Performed At Patho logist Time Signature WBC 8.7 4.0 - 9.5 [facility] x[facility](3[facility] LABORATORY RBC 2.77 (L) 4.58 - [place] XIAO 5.54 [facility] x10(6)/[facility] LABORATORY Hemoglobin 8.6 (L) 13.7 - [place] 16.5 g/dL [facility] LABORATORY Hematocrit 25.7 (L) 40.5 - [facility] XIAO 48.5 % [facility] LABORATORY MCV 92.8 82.9 - [facility] XIAO 93.1 [facility] LABORATORY MCH 31.0 27.5 - [place] 32.1 pg [facility] LABORATORY MCHC 33.5 32.0 - [place] 35.7 g/dL [facility] LABORATORY Platelets 260 145 - 357 [facility] x10(3)/[facility] LABORATORY RDWSD 51.9 (H) 36.0 - [facility] XIAO 45.0 [facility] LABORATORY RDWCV 15.5 (H) 11.4 - [place] 13.8 % [facility] LABORATORY MPV 10.4 7.6 - 12.9 [facility] nRBC % Auto 0.0 % [facility] LABORATORY nRBC Abs Auto 0.000 0.000 - [place] 0.000 [facility] x10(3)/[facility] LABORATORY Specimen (Source) Anatomical Collection Method Collection Time Re ceived Time Location / / Volume Laterality Blood 06/01/2022 06/01/2022 12:1 0 AM EDT Resulting Agency Comment Spec In Lab Arpita Valle MD HEMATOLOGY ORDERABLES Performing Organization Address City/State/ZIP Code [place] [address] (ABNORMAL) Differential, Automated (05/31/2022 9:17 PM EDT) P athologist Signature Neutrophils % 59.6 % [facility] LABORATORY Neutr Abs (ANC) 3.98 1.70 - [facility] 6.10 [facility] x10(3)/[facility] LABORATORY Lymphocytes % 27.5 % [facility] LABORATORY Lymphocytes Abs 1.8 0.9 - 3.2 [facility] x10(3)/[facility] LABORATORY Monocytes % 9.1 % [facility] LABORATORY Monocyte Abs 0.6 0.3 - 0.9 [facility] x10(3)/[facility] LABORATORY Eosinophils % 2.4 % [facility] LABORATORY Eosinophils Abs 0.2 0.0 - 0.4 [facility] x10(3)/[facility] LABORATORY Basophils % 0.7 % [facility] LABORATORY Basophils Abs 0.0 0.0 - 0.1 [facility] x10(3)/[facility] LABORATORY Immature Gran % 0.70 % [facility] [...] Gran Abs 0.05 (H) 0.00 - 0.04 x10(3)/[facility] LABORATORY Specimen Anatomical Collection Method Collection Time Receive d Time (Source) Location / / Volume Laterality Blood 05/31/2022 9:17 PM 9:25 EDT PM EDT Resulting Agency Comment Spec In Lab Arpita Valle MD HEMATOLOGY ORDERABLES Performing Organization Address City/State/ZIP Code Phon e Number [place] [id number] HOSPITAL LABORATORY Drive (ABNORMAL) Hemogram (05/31/2022 9:17 PM EDT) Analysis Performed At Patho logist Time Signature WBC 6.7 4.0 - 9.5 [facility] x10(3)/[facility] LABORATORY RBC 2.74 (L) 4.58 - [place] 5.54 [facility] x10(6)/[facility] LABORATORY Hemoglobin 8.5 (L) 13.7 - [facility] 16.5 g/dL [facility] LABORATORY Hematocrit 25.7 (L) 40.5 - [facility] 48.5 % [facility] LABORATORY MCV 93.8 (H) 82.9 - [facility] 93.1 [facility] LABORATORY MCH 31.0 27.5 - [facility] 32.1 pg [facility] LABORATORY MCHC 33.1 32.0 - [facility] 35.7 g/dL [facility] LABORATORY Platelets 233 145 - 357 [facility] x10(3)/[facility] LABORATORY RDWSD 51.9 (H) 36.0 - [facility] 45.0 [facility] LABORATORY RDWCV 15.3 (H) 11.4 - [facility] 13.8 % [facility] LABORATORY MPV 10.3 7.6 - 12.9 [facility] LABORATORY nRBC % Auto 0.0 % [facility] LABORATORY nRBC Abs Auto 0.000 0.000 - [facility] 0.000 [facility] x10(3)/[facility] LABORATORY Specimen Anatomical Collection Method Collection Time Receive d Time (Source) Location / / Volume Laterality Blood 05/31/2022 9:17 PM 9:25 EDT PM EDT Resulting Agency Comment Spec In Lab Arpita Valle MD HEMATOLOGY ORDERABLES Performing Organization Address City/State/[place] [address] Transfuse RBC (05/31/2022 7:36 PM EDT) Regina Hinds MD NURSING TREATMENT ORDERABLES - BLOOD ADMIN Transfuse RBC (05/31/2022 7:36 PM EDT) Regina Hinds MD NURSING TREATMENT ORDERABLES - BLOOD ADMIN UPPER GI ENDOSCOPY (05/31/2022 3:37 PM EDT) Component Value Ref Test Analysis Performed At Patholo gist Range Method Time Signature UPPER GI [facility]OVATION ENDOSCOPY Endoscopy Procedure Date: 05/31/2022 3:37 PM ? Patient Name: Koko Zamora ? Date of : 1940 ? Age: 81 ? Order #: [id number] ? Instrument Name: [id number] ? Procedure: ? Upper GI endoscopy Indications: [...] Procedure Code(s): ? --- Professional --- ? 07013, Esophagogastroduode noscopy, ? flexible, transoral; with control [...] stomach ? and duodenum CPT copyright 2020 [employer]. All rights reserved. The codes documented in this report are preliminary and upon orthopedic coder review may be revised to meet [...] who have questions please contact the health direct care supervisor that requested your imaging first. ? Narrative [...] enlarged lymph nodes. 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 [...] enlarged lymph nodes. 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 [...] ho have questions please contact the health direct care supervisor that requested your imaging first. Regina Hinds MD IMG CT ORDERABLES Type and Screen Validity (05/31/2022 1:43 PM EDT) [facility] Method Time Signature T&S only valid [facility] LABORATORY Comment: This Type and Screen result is only valid at the [facility] Hospital Specimen Anatomical Collection Method Collection Time Receive d Time (Source) Location / / Volume Laterality Blood 05/31/2022 1:43 PM 2 1:57 EDT PM EDT Resulting Agency Comment Spec In Lab Regina Hinds MD BLOOD BANK ORDERABLES Performing Organization Address City/[facility]/[place] [address] ABORH Recheck Status (05/31/2022 1:43 PM EDT) [facility] Method Time Signature ABORH Type Completed [facility] LABORATORY Specimen Anatomical Collection Method Collection Time Receive d Time (Source) Location / / Volume Laterality Blood 05/31/2022 1:43 PM 2 1:57 EDT PM EDT Resulting Agency Comment Spec In Lab Regina Hinds MD BLOOD BANK ORDERABLES Performing Organization Address City/[facility]/[place] [address] Antibody screen (05/31/2022 1:43 PM EDT) [facility] Method [place] Signature Ab Screen Negative [facility] LABORATORY Expires at 06/03/2022 [facility] [id number] on: [facility] LABORATORY Specimen Anatomical Collection Method Collection Time Receive d Time (Source) Location / / Volume Laterality Blood 05/31/2022 1:43 PM 2 1:57 EDT PM EDT Resulting Agency Comment Spec In Lab Regina Hinds MD BLOOD BANK ORDERABLES Performing Organization Address City/[facility]/[place] [address] ABO/Rh Typing (05/31/2022 1:43 PM EDT) P athologist Signature ABORh Type O Pos [facility] LABORATORY Specimen Anatomical Collection Method Collection Time Receive d Time (Source) Location / / Volume Laterality Blood 05/31/2022 1:43 PM 2 1:57 EDT PM EDT Resulting Agency Comment Spec In Lab Regina Hinds MD BLOOD BANK ORDERABLES Performing Organization Address City/[facility] [place] [place] [address] Prepare RBC (05/31/2022 1:35 PM EDT) P athologist Signature Dispensed? Yes [facility] LABORATORY Specimen Anatomical Collection Method Collection Time Receive d Time (Source) Location / / Volume Laterality Blood 05/31/2022 1:35 PM 2 1:30 EDT PM EDT Regina Hinds MD BLOOD BANK ORDERABLES Performing Organization Address City/[facility]/[place] [address] Prepare RBC (05/31/2022 1:25 PM EDT) P athologist Signature Dispensed? Yes [facility] LABORATORY Specimen Anatomical Collection Method Collection Time Receive d Time (Source) Location / / Volume Laterality Blood 05/31/2022 1:25 PM 2 1:23 EDT PM EDT Regina Hinds MD BLOOD BANK ORDERABLES Performing Organization Address City/[facility] [place] [address] (ABNORMAL) Differential, Automated (05/31/2022 12:44 PM EDT) P athologist Signature Neutrophils % 62.0 % [facility] LABORATORY Neutr Abs (ANC) 4.71 1.70 - [facility] 6.10 [facility] x10(3)/[facility] LABORATORY Lymphocytes % 24.1 % [facility] LABORATORY Lymphocytes Abs 1.8 0.9 - 3.2 [facility] x10(3)/[facility] LABORATORY Monocytes % 10.8 % [facility] LABORATORY Monocyte Abs 0.8 0.3 - 0.9 [facility] x10(3)/[facility] LABORATORY Eosinophils % 1.6 % [facility] LABORATORY Eosinophils Abs 0.1 0.0 - 0.4 [facility] x10(3)/[facility] LABORATORY Basophils % 0.7 % [facility] LABORATORY Basophils Abs 0.0 0.0 - 0.1 [facility] x10(3)/[facility] LABORATORY Immature Gran % 0.80 % [facility] LABORATORY Comment: Immature granulocytes(IG's)percentage an d absolute count will include metamyelocytes, myelocytes, and promyelo cytes. Blood smears from CBCs yielding IG's will be scanned manually for concor dance. If this scan disagrees with the automated IG or if promyelocytes are not ed, a manual differential will be performed. Rain Gran Abs 0.06 (H) 0.00 - 0.04 x10(3)/[facility] LABORATORY Specimen Anatomical Collection Method Collection Time Receive d Time (Source) Location / / Volume Laterality Blood 05/31/2022 12:44 05/31/2022 PM EDT 12:57 PM EDT Resulting Agency Comment Spec In Lab Brittany Ramirez MD HEMATOLOGY ORDERABLES Performing Organization Address City/State/ZIP Code Phon e Number [place] [phone] HOSPITAL LABORATORY Drive (ABNORMAL) Hemogram (05/31/2022 12:44 PM EDT) Analysis Performed At Patho logist Time Signature WBC 7.6 4.0 - 9.5 [facility] x10(3)/[facility] LABORATORY RBC 2.11 (L) 4.58 - [facility] 5.54 [facility] x10(6)/[facility] LABORATORY Hemoglobin 6.9 (L) 13.7 - [facility] 16.[facility] g/dL [facility] LABORATORY Hematocrit 20.8 (L) 40.5 - [facility] 48.5 % [facility] LABORATORY MCV 98.6 (H) 82.9 - [facility] 93.1 [facility] LABORATORY MCH 32.7 (H) 27.5 - [facility] 32.1 pg [facility] LABORATORY MCHC 33.2 32.0 - [facility] 35.7 g/dL [facility] Platelets 255 145 - 357 [facility] x10(3)/[facility] LABORATORY RDWSD 47.7 (H) 36.0 - [facility] 45.0 [facility] RDWCV 13.4 11.4 - [facility] 13.8 % [facility] LABORATORY MPV 10.7 7.6 - 12.9 [facility] LABORATORY nRBC % Auto 0.0 % [facility] nRBC Abs Auto 0.000 0.000 - [facility] 0.000 [facility] x10(3)/[facility] LABORATORY Specimen Anatomical Collection Method Collection Time Receive d Time (Source) Location / / Volume Laterality Blood 05/31/2022 12:44 05/31/2022 PM EDT 12:57 PM EDT Resulting Agency Comment Spec In Lab Brittany Ramirez MD HEMATOLOGY ORDERABLES Performing Organization Address City/State/[place] [address] (ABNORMAL) BLOOD GAS 2 VENOUS (05/31/2022 11:24 AM EDT) P athologist Signature pH [place] 7.38 7.32 - [facility] 7.42 [facility] LABORATORY pCO2 [place] 40 (L) 41 - 51 [facility] LABORATORY pO2 [place] 18 (L) 25 - 40 [facility] LABORATORY HCO3 [place] 23.3 mmol/L [facility] LABORATORY BE [place] -1.8 mmol/L [facility] LABORATORY Hgb Blood Gas 7.0 (L) 13.7 - [facility] 16.5 g/dL [facility] LABORATORY O2HB [place] 24.3 % [facility] LABORATORY COHB [place] 1.4 % [facility] Comment: Nonsmokers: 0.5-1.5% COHB Smokers: Variable, but usually less than 10% Toxic: 20-30% COHB Lethal: Greater than 60% COHB METHB [place] 1.7 (H) <=1.5 % [facility] LABORATORY Na Whole Blood 137 [...] WB 1.4 0.5 - 2.2 mmol/L [facility] LABORATORY BGas Source Venous [facility] LABORATORY Specimen Anatomical Collection Method Collection Time Receive d Time (Source) Location / / Volume Laterality Blood 05/31/2022 11:24 05/31/2022 AM EDT 11:24 AM EDT Regina Hinds MD CHEMISTRY ORDERABLES Performing Organization Address City/State/[place] [address] TSH [place] (05/31/2022 11:20 AM EDT) P athologist Signature TSH 1.67 0.27 - 4.20 [facility] mcIU/mL [facility] LABORATORY Comment: Reference Interval (mcIU/mL): Females: ??First Trimester: 0.23-3.88 ??Second Trimester: 0.22-3.90 ??Third Trimester: 0.44-4.66 Specimen Anatomical Collection Method Collection Time Receive d Time (Source) Location / / Volume Laterality Blood 05/31/2022 11:20 05/31/2022 AM EDT 11:28 AM EDT Resulting Agency Comment Spec In Lab Regina Hinds MD CHEMISTRY ORDERABLES Performing Organization Address City/State/[place] [address] XR Chest PA & [...] who have questions please contact the health direct care supervisor that requested your imaging first. ? Electronically signed by: Alan strong MD, [facility] ([phone]), at 05/31/2022 11:33 AM Narrative 05/31/2022 11:33 [...] ho have questions please contact the health direct care supervisor that requested your imaging first. Regina Hinds MD IMG DX ORDERABLES Lipase (05/31/2022 10:50 AM EDT) athologist Signature Lipase 41 0 - 60 [facility]/L [facility] LABORATORY Specimen Anatomical Collection Method Collection Time Receive d Time (Source) Location / / Volume Laterality Blood Venous Draw / 05/31/2022 10:50 05/31/2022 Unknown AM EDT 11:11 AM EDT Resulting Agency Comment Spec In Lab aZin Champion MD CHEMISTRY ORDERABLES Performing Organization Address City/State/[place] [address] (ABNORMAL) Hepatic Function Panel (05/31/2022 10:50 AM EDT) Analysis Performed At Patho logist Time Signature Total Protein 6.4 6.1 - 8.0 [facility] XIAO g/dL [facility] LABORATORY Albumin 4.1 3.2 - 5.2 [facility] XIAO g/dL [facility] LABORATORY AST 24 0 - 39 [facility]L [facility] LABORATORY ALT 44 0 - 55 [facility]/L [facility] LABORATORY Alk Phos 63 40 - 130 [facility]/L [facility] LABORATORY Total <0.2 (L) 0.2 - 1.3 [facility] Bilirubin mg/dL [facility] LABORATORY Bili, Direct 0.1 0.0 - 0.3 [facility] mg/dL [facility] LABORATORY Specimen Anatomical Collection Method Collection Time Receive d Time (Source) Location / / Volume Laterality Blood Venous Draw / 05/31/2022 10:50 05/31/2022 Unknown AM EDT 11:11 AM EDT Resulting Agency Comment Spec In Lab Zain Champion MD CHEMISTRY ORDERABLES Performing Organization Address City/[facility]/ZIP Code Phon e Number [address] Blue Tube HOLD (05/31/2022 10:50 AM EDT) P athologist Signature Blue Hold Sample in [facility] lab. [facility] LABORATORY Specimen Anatomical Collection Method Collection Time Receive d Time (Source) Location / / Volume Laterality Blood Venous Draw / 05/31/2022 10:50 05/31/2022 Unknown AM EDT 11:05 AM EDT Brittany Ramirez MD HEMATOLOGY ORDERABLES Performing Organization Address City/[facility]/ZIP Code Phon e Number [address] (ABNORMAL) Differential, Automated (05/31/2022 10:50 AM EDT) P athologist Signature Neutrophils % 66.9 % [facility] LABORATORY Neutr Abs (ANC) 5.58 1.70 - [facility] 6.10 [facility] x10(3)/[facility] LABORATORY Lymphocytes % 22.2 % [facility] LABORATORY Lymphocytes Abs 1.8 0.9 - 3.2 [facility] x10(3)/[facility] LABORATORY Monocytes % 7.8 % [facility] LABORATORY Monocyte Abs 0.6 0.3 - 0.9 [facility] x10(3)/[facility] LABORATORY Eosinophils % 1.2 % [facility] LABORATORY Eosinophils Abs 0.1 0.0 - 0.4 [facility] x10(3)/[facility] LABORATORY Basophils % 0.7 % [facility] LABORATORY Basophils Abs 0.1 0.0 - 0.1 [facility] x10(3)/[facility] LABORATORY Immature Gran % 1.20 % [facility] LABORATORY Comment: Immature granulocytes(IG's)percentage an d absolute count will include metamyelocytes, myelocytes, and promyelo cytes. Blood smears from CBCs yielding IG's will be scanned manually for concor dance. If this scan disagrees with the automated IG or if promyelocytes are not ed, a manual differential will be performed. Rain Gran Abs 0.10 (H) 0.00 - 0.04 x10(3)/[facility] LABORATORY Specimen Anatomical Collection Method Collection Time Receive d Time (Source) Location / / Volume Laterality Blood 05/31/2022 10:50 05/31/2022 AM EDT 11:03 AM EDT Resulting Agency Comment Spec In Lab Brittany Ramirez MD HEMATOLOGY ORDERABLES Performing Organization Address City/State/ZIP Code Phon e Number [place] [id number] HOSPITAL LABORATORY Drive (ABNORMAL) Hemogram (05/31/2022 10:50 AM EDT) Analysis Performed At Patho logist Time Signature WBC 8.3 4.0 - 9.5 [facility] x10(3)/[facility] LABORATORY RBC 2.26 (L) 4.58 - [facility] 5.54 [facility] x10(6)/[facility] LABORATORY Hemoglobin 7.4 (L) 13.7 - [facility] 16[facility] g/dL [facility] LABORATORY Hematocrit 22.3 (L) 40.5 - [facility] 48.5 % [facility] LABORATORY MCV 98.7 (H) 82.9 - [facility] 93.1 fL [facility] LABORATORY MCH 32.7 (H) 27.5 - IL[facility] HAGEN 32.1 pg [facility] LABORATORY MCHC 33.2 32.0 - [facility]AG[facility] 35.7 g/dL [facility] LABORATORY Platelets 283 145 - 357 [facility] x10(3)/[facility] LABORATORY RDWSD 47.0 (H) 36.0 - [facility] HAGEN 45.0 [facility] LABORATORY RDWCV 13.4 11.4 - [facility] XIAO 13.8 % [facility] LABORATORY MPV 10.8 7.6 - 12.9 [facility] HAG[facility] LABORATORY nRBC % Auto 0.0 % [facility] LABORATORY nRBC Abs Auto 0.000 0.000 - [facility] XIAO 0.000 [facility] x10(3)/[facility] LABORATORY Specimen Anatomical Collection Method Collection Time Receive d Time (Source) Location / / Volume Laterality Blood 05/31/2022 10:50 05/31/2022 AM EDT 11:03 AM EDT Resulting Agency Comment Spec In Lab Brittany Ramirez MD HEMATOLOGY ORDERABLES Performing Organization Address City/State/ZIP Code Phon e Number [address] Phosphorus (05/31/2022 10:50 AM EDT) P athologist Signature Phosphorus 3.2 2.5 - 4.5 [facility] XIAO mg/dL [facility] LABORATORY Specimen Anatomical Collection Method Collection Time Receive d Time (Source) Location / / Volume Laterality Blood 05/31/2022 10:50 05/31/2022 AM EDT 11:03 AM EDT Resulting Agency Comment Spec In Lab Regina Hinds MD CHEMISTRY ORDERABLES Performing Organization Address City/State/ZIP Code Phon e Number [address] Magnesium (05/31/2022 10:50 AM EDT) P athologist Signature Magnesium 0.93 0.69 - 1.07 [facility] XIAO mmol/L [facility] LABORATORY Specimen Anatomical Collection Method Collection Time Receive d Time (Source) Location / / Volume Laterality Blood 05/31/2022 10:50 05/31/2022 AM EDT 11:03 AM EDT Resulting Agency Comment Spec In Lab Regina Hinds MD CHEMISTRY ORDERABLES Performing Organization Address City/State/ZIP Code Phon e Number [address] (ABNORMAL) pro-Brain Natriuretic Peptide (05/31/2022 10:50 AM EDT) athologist Signature ProBNP 1,077 (H) <=449 [facility] Biocept pg/mL [facility] LABORATORY Specimen Anatomical Collection Method Collection Time Receive d Time (Source) Location / / Volume Laterality Blood 05/31/2022 10:50 05/31/2022 AM EDT 11:03 AM EDT Resulting Agency Comment Spec In Lab Regina Hinds MD CHEMISTRY ORDERABLES Performing Organization Address City/State/[place] [address] Troponin (05/31/2022 10:50 AM EDT) athologist Signature Troponin-T <0.01 0.00 - 0.00 [facility] X[facility] ng/mL [facility] LABORATORY Comment: The 99th percentile [...] additional sample may be indicated. Reference: Third [place] Definition of Myocardial Infarction. Journal of the [place] [employer] of Cardiology 2012;60:1581-98 Specimen Anatomical Collection Method Collection Time Receive d Time (Source) Location / / Volume Laterality Blood 05/31/2022 10:50 05/31/2022 AM EDT 11:03 AM EDT Resulting Agency Comment Spec In Lab Regina Hinds MD CHEMISTRY ORDERABLES Performing Organization Address City/State/ZIP Code Phon e Number [place] [phone] HOSPITAL LABORATORY Drive (ABNORMAL) Basic Metabolic Panel (non-fasting) (05/31/2022 10:50 AM EDT) athologist Signature Glucose Lvl 223 (H) 65 - 199 [facility] mg/dL [facility] LABORATORY Comment: Diabetes: >=200 mg/dL [...] LABORATORY Estimated GFR 86 >=60 mL/min/1.73 m?? [facility] LABORATORY Comment: [...] Organization Address City/State/[place] [address] EKG 12 Lead (05/31/2022 10:11 AM EDT) Component Value Ref Range Test Analysis Performed Pathologis t Method Time At Signature Ventricular rate 106 BPM MUSE SYSTEM QRS Duration 122 ms MUSE SYSTEM Q-T Interval 368 ms MUSE SYSTEM QTC Calculated 488 ms MUSE SYSTEM (Bezet) Calculated R [place] -43 degrees MUSE SYSTEM Calculated T [place] 109 degrees MUSE SYSTEM INTERPRETATION Atrial fibrillation with rapid ventricular response MUSE SYSTEM Left axis deviation Minimal voltage criteria for LVH, may be normal variant ( [place] product ) Cannot rule out Anterior infarct , age undetermined Abnormal ECG When compared with ECG of 20-MAY-2022 19:04, No significant change was found I personally reviewed the tracing and edited the fellows int erpretation Confirmed by fellow MD Mike, [place] ([id number]) on 022 8:36:21 PM Confirmed by MD [...] (Lidoderm) 5% patch 2 patch(Linked Group 1) 0378 (Patch Applied - Provider: Raven Barbour RN [...] - Less than 0.1 international unit/mL: Ad sql report writer 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 med 0-4,000 Units, Intravenous, BOLUS PER [facility], Starting on Fri05/31/22 at [...]
Routine documented in this encounter Care Teams Door Repairer Bus Relationship Specialty Start Date End Date Bobby Das MD PCP - General 10/02/[address] [place] [address] [place] [phone] documented as of this encounter
--- OUTSIDE RECORDS SUMMARY | 2022-07-31 08:59 | XMS_ITS | Encounter Summary ---
:1940 Author Organization [place] [address] Care Team Providers Name Role Phone Bobby Das MD Primary Care Provider Reason for Referral Consultation (Routine) - Authorized Specialty Diagnoses / Procedures Referred By Contact Refer red To Contact Gastroenterology Diagnoses Adenomatous polyp of colon, unspecified part of colon Colonoscopy 06/25/22, discussed w/Dr. Ponce needs to be seen in clinic to discuss polyp / removal iso plavix & DOAC Isi Celaya MD [facility] Gastro 4l [facility] [place] [address] [place] [address] Phone: Fax: Referral ID Status Reason Start Date Expiration Visits Visits Date Requested Authorized [id number] Authorized Consult, 06/25/2022 06/25/2023 1 1 Test & Treat Scheduling Instructions To be seen in ~2mo Encounter Details Date Type Department Care Team Description 06/25/2022 Orders Only Gastroenterology at [facility] Isi Celaya Adenomatous polyp of [facility] Bobby Mera [place], [place] [address] [facility] part of colon [phone] [place] [address] Social History Tobacco Use Types Packs/Day Years [...] MD [facility] DR GASTROENTEROLOGY DEPT [place] [phone] (Wo rk) 09/05/2022 Appointment Cardiology Trinity Reid MD [facility] CARDIOLOGY [place], [place] [address] (Wo rk) 09/05/2022 Office Visit Cardiology Trinity Reid MD [facility] CARDIOLOGY [place], [place] [address] (Wo rk) Scheduled Referrals Name Type Priority Associated Order Schedule Diagnoses Referral to Outpatient Routine Adenomatous polyp Ordered: Gastroenterology Referral of colon, 06/25/2022 unspecified part of colon documented as of this encounter Visit Diagnoses Diagnosis Adenomatous polyp of colon, unspecified part of colon documented in this encounter Care Teams Needle Setter Relationship Specialty Start Date End Date Bobby Das MD PCP - General 10/02/[address] [place] [address] [place] [phone] documented as of this encounter
--- OUTSIDE RECORDS SUMMARY | 2022-07-31 08:59 | XMS_ITS | Encounter Summary ---
:1940 [place] [address] Care Team Providers Name Role Phone Bobby Das MD Primary Care Provider Encounter Details Date Type Department Care Team Description 06/13/2022 Tech Visit Vascular Lab at [facility], Dominga [place] [address] Social History Tobacco Use Types Packs/Day [...] 08/08/2022 Office Visit Gastroenterology Negra Clolins MD [facility] DR GASTROENTEROLOGY DEPT [place], [place] [address] (Wo rk) 09/05/2022 Appointment Cardiology Trinity Reid MD [facility] CARDIOLOGY [place], [place] [address] (Wo rk) 09/05/2022 Office Visit Cardiology Trinity Reid MD [facility] CARDIOLOGY [place], [place] [address] (Wo rk) documented as of [...] [facility] Range Method Time Signature VB Text Department: Vascular Surgery Lab VASCUBASE Report Patient: [id number] (ETTA BAH) CPT: 59430 Referring Physician: FITO SUMMERS ?? 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 Diabetes mellitus: no Findings: Right ?Pressure [...] disorder documented in this encounter Care Teams Candy Puller Relationship Specialty Start Date End Date Bobby Das MD PCP - General 10/02/[address] [place] [address] [place] [phone] documented as of this encounter
--- OUTSIDE RECORDS SUMMARY | 2022-07-31 08:59 | XMS_ITS | Encounter Summary ---
:1940 Author Organization [facility] [place] [address] Care Team Providers Name Role Phone Bobby Das MD Primary Care Provider Encounter Details Date Type Department Care Team Description 06/23/2022 Telephone Gastroenterology at [facility] Alan August MD [facility] [place] [address] GASTROENTEROLOGY DEPT [phone] [place], [place] [address] (Wo rk) Social History Tobacco [...] Date: 06/23/2022 Time: 2:27 AM Referring Location: [facility] Referring Provider: Sharham Urena DC HPI: This is a 81 [...] MD [facility] GASTROENTEROLOGY DEPT [place], [place] [address] ( rk) 09/05/2022 Appointment Cardiology Trinity Reid MD [facility] CARDIOLOGY [place], [place] [address] ( rk) 09/05/2022 Office Visit Cardiology Trinity Reid MD [facility] CARDIOLOGY [place], [place] [address] ([facility]) documented as of this encounter Visit Diagnoses Not on filedocumented in this encounter Care Teams Ssn/Ssbn Weapons Equipment Operator Relationship Specialty Start Date End Date Bobby Das MD PCP - General 10/02/[address] [place] [address] [place] [phone] documented as of this encounter
--- OUTSIDE RECORDS SUMMARY | 2022-07-31 08:59 | XMS_ITS | Encounter Summary ---
:1940 Author Organization [facility] [place] [address] Care Team Providers Name Role Phone Bobby Das MD Primary Care Provider Encounter Details Date Type Department Care Team Description 07/01/2022 Telephone Dermatology at [facility], Zainab Dupree, SHEET ROCKER [address] [place] [address] Social History Tobacco Use Types Packs/Day [...] [facility] DR GASTROENTEROLOGY DEPT [place], [place] [address] (Wo rk) 09/05/2022 Appointment Cardiology Trinity Reid MD [facility] CARDIOLOGY [place], [place] [address] (Wo rk) 09/05/2022 Office Visit Cardiology Trinity Reid MD [facility] CARDIOLOGY [place], [place] [address] (Wo rk) documented as of this encounter Visit Diagnoses Not on filedocumented in this encounter Care Teams Sales Operations Assistant Relationship Specialty Start Date End Date Bobby Das MD PCP - General 10/02/[address] [place] [address] [place] [phone] documented as of this encounter
--- OUTSIDE RECORDS SUMMARY | 2022-07-31 08:59 | XMS_ITS | Encounter Summary ---
:1940 Author Organization [facility] [address] Care Team Providers Name Role Phone Bobby Das MD Primary Care Provider Reason for Referral Consultation (Routine) - Closed Specialty Diagnoses / Referred By Contact Referred To Contact Procedures Cardiac Rehabilitation Diagnoses HFrEF (heart failure with reduced ejection fraction) Coronary artery disease involving [place] coronary artery of [place] heart without angina pectoris Alan Reid Cardiac Rehab, MD Kurt [address] [place] CARDIOLOGY [address] [place] [address] Referral ID Status Reason Start Date Expiration Date Visits V isits Requested Authorized [id number] Closed Consult, 06/20/2022 12/17/2022 36 36 Test & Treat Encounter Details Date Type Department Care Team Description 06/20/2022 Orders Only Cardiology at [facility] Alan Reid HFrEF (heart failure with re duced ejection fraction); [facility] MD Kurt Coronary artery disease involving [place] coronary artery of [place] heart [place] [address] CARDIOLOGY [phone] [place], [place] [address] (Wo rk) Social History Tobacco [...] MD [facility] GASTROENTEROLOGY DEPT [place], [place] [address] (Wo rk) 09/05/2022 Appointment Cardiology Trinity Reid MD [facility] CARDIOLOGY [place], [place] [address] (Wo rk) 09/05/2022 Office Visit Cardiology Trinity Reid MD [facility] CARDIOLOGY [place], [place] [address] (Wo rk) Scheduled Referrals Name Type Priority Associated Diagnoses [facility] to Outpatient Referral Routine HFrEF (heart failure Ordered: Cardiac Rehab with reduced 06/20/2022 ejection fractio n) Coronary artery disease involving [place] coronary artery of [place] heart without angina pectoris documented as of this encounter Visit Diagnoses Diagnosis HFrEF (heart failure with reduced ejecti on fraction) Coronary artery disease involving [place] coronary artery of [place] heart without angina pectoris documented in this encounter Care Teams Solid State Tester Relationship Specialty Start Date End Date Bobby Das MD PCP - General 10/02/[address] [place] [address] [place] [phone] documented as of this encounter
--- OUTSIDE RECORDS SUMMARY | 2022-07-31 08:59 | XMS_ITS | Encounter Summary ---
:1940 Author Organization [facility] [place] [address] Care Team Providers Name Role Phone Bobby Das MD Primary Care Provider Reason for Visit Reason Comments Skin Lesion Consultation (Routine) - Closed Specialty Diagnoses / Procedures Referred By Contact Refer red To Contact Dermatology Diagnoses Lesion on right eye = hx of skin cancer Bobby Das MD [facility] Dermatology Procedures Lesion on right eye = hx of skin cancer [address] [facility] [address] [place] [address] [place] [address] Fax: Referral ID Status Reason Start Date Expiration Date Visits Requ ested Visits Authorized [id number] Closed 04/22/2022 04/22/2023 1 1 Encounter Details Date Type Department Care Team Description 06/10/2022 Office Visit Dermatology at [facility] Amanda, Neoplasm of Road unspecified behavior [address] [facility] [place] [address] [address] and skin [phone] DERMATOLOGY [place] [address] Social History Tobacco Use Types Packs/Day Years [...] nevi N SCC N BCC 2015: right mandaen, BCC s/p mohs 09/2018: right eyebrow, BCC [...] N/A RTC: Pending pathology []Note routed to blood bank laboratory professional []Recall placed in scheduling system []Appointment scheduled at checkout Scribe attestation: Sidney Higgins and Loretta Gomez CMA performed the documentation for this encounter in the presence of and acting as a scribe for Noel Burgos MD. I performed the above scribed service and agree with the accuracy of the documentation in this encounter. Reviewed and signed by: Noel Burgos MD Dermatology [facility] Loretta Cohen MD - 06/10/2022 11:00 AM EDT DERMATOLOGY TELEPHONE NOTE Koko Zamora 06/17/2022 [id number] Reason for call: Discuss biopsy results I called the patient this afternoon to discuss the results of his recent biopsy: - ??Basal cell carcinoma, nodular pattern, transected at the peripheral and deep ??specimen edges We discussed the recommendation for mohs surgery, patient in agreement. Referral placed. Loretta oChen MD Dermatology Resident documented in this encounter Plan of Treatment Upcoming Encounters Date Type Specialty Care Team Description 08/08/2022 Office Visit Gastroenterology Negra Collins MD [facility] GASTROENTEROLOGY DEPT [place], [place] [address] (Wo bob) 09/05/2022 Appointment Cardiology Trinity Reid MD [facility] CARDIOLOGY [place], [place] [address] (Rebekah rojas) 09/05/2022 Office Visit Cardiology Trinity Reid MD [facility] ER DR CARDIOLOGY [place] [address] (Wo rk) documented as of this encounter [...] PM 2 1:20 EDT PM EDT Narrative [facility] LABORAT ORY - 06/10/2022 1:20 PM EDT Specimen requisition ordered. ??Separate Pathology report to follow Loretta Cohen MD PATHOLOGY/CYTOLOGY ORDERABLE S Performing Organization Address City/State/[place] [address] Surgical Pathology Report (06/10/2022 11:43 AM EDT) Component Value Ref Test Analysis [facility]formed [facility] Range Method Time Signature Surgical [id number] ? Location: [facility] Report The signing pathologist has (i) examined the relevant preparation(s) for the [facility] specimen(s) and (ii) rendered or confirmed the diagnosis(es) . HOSPITAL LABORATORY . ?Surgic al Pathology DIAGNOSIS Right lateral eyebrow, skin shave biopsy: - ??Basal cell carcinoma, no dular pattern, transected at the peripheral and deep specimen edges Electronically signed by: ?Delroy CARCAMO, PhD, Ian Verified: ??06/12/2022 14:33 ??Dermatopathologist Performed at: ??-[facility] Dept. [place]ology, [place], [place] SPECIMEN(S) SUBMITTED A - right lateral [...] Organization Address City/State/[place] [address] [facility] [address] documented in this encounter Visit Diagnoses Diagnosis Neoplasm of unspecified behavior of bone , soft tissue, and skin documented in this encounter Care Teams Spring Coiler Hand Relationship Specialty Start Date End Date Bobby Das MD PCP - General 10/02/[address] [place] [address] [place] [address] documented as of this encounter
--- OUTSIDE RECORDS SUMMARY | 2022-07-31 08:59 | XMS_ITS | Encounter Summary ---
:1940 Author Organization [facility] [place] [address] Care Team Providers Name Role Phone Bobby Das MD Primary Care Provider Reason for Referral Diagnostic Test (Routine) - Authorized Specialty Diagnoses / Procedures Referred By Contact Refer red To Contact Cardiology Diagnoses HFrEF (heart failure with reduced ejection fraction) Alan Reid MD [facility] Non-Inv Card Lab Procedures Echocardiogram [place] [address] [place] [address] Fax: Referral ID Status Reason Start Expiration Visits Visits Date Date Requested Authorized [id number] Authorized Specialty 06/13/2022 06/13/2023 1 1 Service Requested Reason for Visit Consultation (Routine) - Closed Specialty Diagnoses / Procedures Referred By Contact Refer red To Contact Cardiology Diagnoses HFrEF (heart failure with reduced ejection fraction) Paroxysmal atrial fibrillation Post-hospital follow-up, s/p PCI with stenting, heart failure Nasrin Parra PA [facility] Cardiology 4a [facility] [place] [address] [place] [address] Referral ID Status Reason Start Date Expiration Date Visits V isits Requested Authorized [id number] Closed Consult, 05/21/2022 05/21/2023 1 1 Test & Treat Encounter Details Date Type Department Care Team Description 06/13/2022 Office Visit Cardiology at [facility] Alan Reid Coronary artery disease invo lving nome coronary artery of nome heart without angina pectoris; [facility] MD Kurt HFrEF (heart failure with reduced ejecti on fraction); Drive [facility] Permanent [place] [address] CARDIOLOGY [phone] [place], [place] [address] Social History Tobacco Use Types [...] original note were not included. [facility] [place] [address] CARDIOLOGY OUTPATIENT PROGRESS NOTE PRIMARY CARE PROVIDER: Bobby Das MD REFERRING PROVIDER: Nasrin Parra PROBLEM LIST: Patient Active Problem List Diagnosis ??? 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 in 2000 ??? Hypertriglyceridemia ??? Adhesive [...] 3 ??? fluticasone propionate (FLONASE) 50 mcg/actuation [place], Suspension 1 spray by Each Nare route [...] healing well. Markedly diminished left radial pulse. FACILITIES ENGINEERING MANAGER: Normal mentation. Psych: Appropriate affect. Labs: [...] device therapy possiblyincluding AV node ablation and HAIR DESIGNER-D. Coronary artery disease involving nome coronary artery of nome heart without angina pectoris His coronary disease [...] for consideration of AV node ablation and HAIR DESIGNER-D Patient Instructions ??? 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 documented in this encounter Plan of Treatment Upcoming Encounters Date Type Specialty Care Team Description 08/08/2022 Office Visit Gastroenterology Negra Collins MD [facility] DR GASTROENTEROLOGY DEPT [place], [place] [address] (Wo rk) 09/05/2022 Appointment Cardiology Trinity Reid MD [facility] CARDIOLOGY [place], [place] [address] (Wo rk) 09/05/2022 Office Visit Cardiology Trinity Reid MD [facility] CARDIOLOGY [place], [place] [address] (Wo rk) Scheduled Orders Name Type Priority Associated Order Schedule Diagnoses Echocardiogram Echocardiography Routine HFrEF (heart Expected: Transthoracic failure with 08/13/2022, reduced ejection Expires: fraction) 02/12/2023 documented as of this encounter Visit Diagnoses Diagnosis Coronary artery disease involving nome coronary artery of nome heart without angina pectoris HFrEF (heart failure with reduced ejecti on fraction) Permanent atrial fibrillation Atrial fibrillation documented in this encounter Care Teams Manager Supplier Relationship Specialty Start Date End Date Bobby Das MD PCP - General 10/02/[address] [place] [address] [place] [phone] documented as of this encounter
--- OUTSIDE RECORDS SUMMARY | 2022-07-31 08:59 | XMS_ITS | Clinical Summary ---
:1940 Author Organization [facility] [place] [address] Care Team Providers Name Role Phone Bobby [...] 04/12/2021 Active (FLONASE) 50 mcg/actuation Each Nare [place], Suspension route daily as needed. 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 Permanent atrial fibrillation 06/13/2022 Last Assessment & [...] consideration of AV no de ablation and CURTAIN MENDER-D Limb ischemia 05/15/2022 History of basal cell carcinoma 05/31/2014 Basal cell carcinoma 03/29/2014 Verruca vulgaris 03/29/2014 AK (actinic keratosis) 03/29/2014 GIB (gastrointestinal bleeding) 06/28/2011 Overview: Secondary to 3-4 ASA/day, required admis lynette and blood transfusion MVP (mitral valve prolapse) s/p repair 06/28/2011 Overview: Surgery done at [facility] in 2 001 Hypertriglyceridemia 06/28/2011 [...] Hicks MD Coronary priscilla ry disease involving tunica-biloxi coronary artery of tunica-biloxi heart without angina pectoris 06/19/2022 Telephone Cardiology Kourtney Jimenez RN 06/17/2022 Orders Only Dermatology Loretta Cohen Basal cell c carlos Paez MD (BCC) of right forehead 06/13/2022 Office Visit Cardiology Jeanette, Coronary artery disease involving tunica-biloxi coronary artery of tunica-biloxi heart without angina pectoris; Alan Hicks MD [...] Gastroenterology Elmer Johnson MD Drost, Alexander J, GAS DISTRIBUTION SUPERVISOR 05/31/2022 Surgery Gastroenterology Giovani Ponce UPPE R GI M, MD ENDOSCOPY 05/31/2022 - Hospital Encounter Dominique Hinds GIB (g astrointestinal 06/02/2022 MD bleeding) (Primary Dx) Mahendra Victor MD Friedman, Harley P, MD Ratanamaneechat, Suphagaphan, MD 05/31/2022 Office Visit Vascular Surgery DavinaStephanie bellamyy Dizzy; B, UNDER SHERIFF Atrial fibrilla tion, unspecified type; SOB (shortness of breath) 05/28/2022 Telephone Vascular Surgery Dominique Bolivar, DION 05/24/2022 Telephone Cardiology Kourtney Jimenez RN 05/21/2022 Hospital Encounter Cardiology Paroxysma l atrial fibrillation 05/20/2022 Surgery Cardiology Abundio Servin MD CATHETERIZATION 05/15/2022 Anesthesia Event Surgery Cari Hernandez MD Patel, Shreena K, GAS DISTRIBUTION SUPERVISOR 05/15/2022 Surgery Surgery Fito Summers EMBOLECTOMY Elton [...] MD [facility] GASTR[facility]OLOG[facility] DEPT [place], [place] [address] (Wo rk) 09/05/2022 Appointment Cardiology Trinity Reid MD [facility] CARDIOLOG[facility] [place], [place] [address] (Wo rk) 09/05/2022 Office Visit Cardiology Trinity Reid MD [facility] CARDIOLOGY [place], [place] [address] (Wo rk) Health Maintenance Due [...] Value Ref Test Analysis Performed At [facility] Range Method Time Signature UPPER GI [facility] ENDOSCOPY Endoscopy Procedure Date: 06/25/2022 10:33 AM ? Patient Name: Koko Bah ? Date of : 1940 ? Age: 81 ? Order #: [id number] ? Instrument Name: [id number] ? Procedure: ? Upper GI endoscopy Indications: [...] [facility] Method Time Signature COLONOSCOPY [facility] Endoscopy Procedure Date: 06/25/2022 10:33 AM ? Patient Name: Koko Bah ? Date of : 1940 ? Age: 81 ? Order #: [id number] ? Instrument Name: [id number]- [id number] ? Procedure: ? Colonoscopy Indications: ? Gastrointestinal [...] Procedure Code(s): ? --- Professional --- ? 43500, Colonoscopy, flexib le; with ? control of [...] of sigmoid ? colon CPT copyright 2020 [employer]. All rights reserved. The codes documented in this report are preliminary and upon epic cadence specialists review may be revised to meet current [...] Value Ref Test Analysis Performed At [facility] Range Method Time Signature VB Text Department: Vascular Surgery Lab VASCUBASE Report Patient: [id number] (KOKO BAH) CPT: 21879 Referring Physician: FITO SUMMERS ?? 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 Diabetes mellitus: no Findings: Right ?Pressure [...] Summers MD VASCULAR ORDERABLES Performing Organization Address City/[facility]/ZIP Code Phon e Number VASCUBASE Specimen to Pathology (06/10/2022 1:20 PM EDT) Specimen Anatomical Collection Method Collection Time Receive d Time (Source) Location / / Volume Laterality AP Specimen 06/10/2022 1:20 PM 1:20 EDT PM EDT Narrative [facility] - 06/10/2022 1:20 PM EDT Specimen requisition ordered. ??Separate Pathology report to follow Loretta Cohen MD PATHOLOGY/CYTOLOGY ORDERABLE S Performing Organization Address [facility] [place] [address] Surgical Pathology Report (06/10/2022 11:43 AM EDT) Component Value Ref Test Analysis Performed At [facility] Range Method Time Signature Surgical [id number] ? Location: [facility] Report The signing pathologist has (i) examined the relevant preparation(s) for the [facility] specimen(s) and (ii) rendered or confirmed the diagnosis(es) . HOSPITAL LABORATORY . ?Surgic al Pathology DIAGNOSIS Right lateral eyebrow, skin shave biopsy: - ??Basal cell carcinoma, no dular pattern, transected at the peripheral and deep specimen edges Electronically signed by: ?Delroy CARCAMO, PhD, Ian Verified: ??06/12/2022 14:33 ??Dermatopathologist Performed at: ??-[facility] Dept. of Pathology, [place], [place] SPECIMEN(S) SUBMITTED A - right lateral [...] Organization Address City/State/[place] [address] (ABNORMAL) Hemogram (06/02/2022 8:20 AM EDT)Only the most recent of14 results within the time period is included. Analysis Performed At Patho logist Time Signature WBC 7.2 4.0 - 9.5 [facility] Aceable x10(3)/[facility] LABORATORY RBC 2.74 (L) 4.58 - [facility] XIAO 5.54 [facility] x10(6)/[facility] LABORATORY Hemoglobin 8.7 (L) 13.7 - [place] XIAO 16.5 g/dL [facility] LABORATORY Hematocrit 25.7 (L) 40.5 - [facility] XIAO 48.5 % [facility]ORATORY MCV 93.8 (H) 82.9 - [facility] XIAO 93.1 [facility] LABORATORY MCH 31.8 27.5 - [facility] 32.1 pg [facility] LABORATORY MCHC 33.9 32.0 - [facility] XIAO 35.7 g/dL [facility] LABORATORY Platelets 260 145 - 357 [place] [facility] x10(3)/[facility] LABORATORY RDWSD 51.0 (H) 36.0 - [place] X[place] 45.0 [facility] LABORATORY RDWCV 14.9 (H) 11.4 - [facility] XIAO 13.8 % [facility] LABORATORY MPV 10.0 7.6 - 12.9 [facility] nRBC % Auto 0.0 % [facility] nRBC Abs Auto 0.000 0.000 - [facility] 0.000 [facility] x10(3)[facility] LABORATORY Specimen Anatomical Collection Method Collection Time Receive d Time (Source) Location / / Volume Laterality Blood 06/02/2022 8:20 AM 8:25 EDT AM EDT Resulting Agency Comment Spec In Lab Kurt Ames MD HEMATOLOGY ORDERABLES Performing Organization Address City/State/ZIP [place] [address] (ABNORMAL) Differential, Automated (06/02/2022 8:20 AM EDT)Only the most recent of14 resultswithin the time period is included. P athologist Signature Neutrophils % 61.3 % [facility] Neutr Abs (ANC) 4.44 1.70 - [facility] 6.10 [facility] x10(3)[facility] LABORATORY Lymphocytes % 25.2 % [facility] Lymphocytes Abs 1.8 0.9 - 3.2 [facility] x10(3)[facility] LABORATORY Monocytes % 10.0 % [facility] Monocyte Abs 0.7 0.3 - 0.9 [facility] x10(3)[facility] LABORATORY Eosinophils % 2.1 % [facility] Eosinophils Abs 0.2 0.0 - 0.4 [facility] x10(3)[facility] LABORATORY Basophils % 0.7 % [facility] Basophils Abs 0.0 0.0 - 0.1 [facility] x10(3)[facility] LABORATORY Immature Gran % 0.70 % [...] Abs 0.05 (H) 0.00 - 0.04 x10(3)/mcL [facility] Specimen Anatomical Collection Method Collection Time Receive d Time (Source) Location / / Volume Laterality Blood 06/02/2022 8:20 AM 2 8:25 EDT AM EDT Resulting Agency Comment Spec In Lab Kurt Ames MD HEMATOLOGY ORDERABLES Performing Organization Address City/State/ZIP Code Phon e Number [address] Heparin (unfractionated) Level (06/02/2022 6:30 AM EDT)Only the most recent of11 resultswithin the time period is included. athologist Signature Heparin UFH 0.39 IU/mL [facility] [...] Address City/State/ZIP Code Phon e Number [address] Magnesium (06/02/2022 12:30 AM EDT)Only the most recent of5 resultswithin the time period is included. athologist Signature Magnesium 0.83 0.69 - 1.07 [facility] mmol/L [facility] LABORATORY Specimen Anatomical Collection Method Collection Time Receive d Time (Source) Location / / Volume Laterality Blood 06/02/2022 12:30 06/02/2022 AM EDT 12:40 AM EDT Resulting Agency Comment Spec In Lab Mahendra Victor MD CHEMISTRY ORDERABLES Performing Organization Address City/State/ZIP [place] [address] (ABNORMAL) Basic Metabolic Panel (non-fasting) (06/02/2022 12:30 AM EDT)Only the most recent of6 resultswithin the time period is included. athologist Signature Glucose Lvl 151 65 - 199 [facility] mg/dL [facility] LAB[facility]ATORY Comment: Diabetes: >=200 mg/dL plus symp toms BUN 12 10 - 20 mg/dL [facility] LABORATORY Creatinine 0.71 (L) 0.80 - 1.50 mg/dL [facility] LABORATORY Sodium 142 135 - 145 mmol/L [facility]ORY Potassium 3.8 3.5 - 5.0 mmol/L [facility] Comment: Please note: ??Patients [...] Calcium 8.1 (L) 8.5 - 10.5 mg/dL [facility] Estimated GFR 93 >=60 [...] Address City/State/ZIP [place] [address] SCAN DOC: TELEMETRY STRIPS (06/01/2022 8:37 PM EDT)Only the most recent of8 resultswithin the time period is included. Narrative This result has an attachment that is no t available. Unknown MEDIA MGR SCAN EXT ORDR/RSLT (ABNORMAL) Urinalysis with reflex Culture (06/01/2022 4:00 AM EDT)Only the most recent of2 resultswithin the time period is included. [facility] gist Method Time Signature Glucose UA 500 Negative [facility] (Critical) mg/dL [facility] LAB[facility]ATORY Comment: Urinalysis result NOT critical without a combination of Glucose greater than or equal to 500 mg/dL AND Ketones greate r than or equal to 80 mg/dL Protein UA Negative Negative mg/dL [facility] Bilirubin UA Negative Negative mg/dL [facility] Comment: Clinical correlation required [...] [facility] Nitrite UA Negative Negative [facility] Leukocytes UA Negative Negative mcL [facility] Appearance UA Clear Clear [place] XIAO [facility] LABORATORY Spec [place] UA >=1.030 (A) 1.005 - 1.030 [facility] LABORATORY Color UA Yellow Yellow [facility]ORY Culture Reflexed No [facility] Specimen Anatomical Collection Method Collection Time Receive d Time (Source) Location / / Volume Laterality Clean Catch 06/01/2022 4:00 AM 4:26 Urine EDT AM EDT Resulting Agency Comment Spec In Lab Mahendra Victor MD URINE ORDERABLES Performing Organization Address City/State/ZIP [place] [address] Transfuse RBC (05/31/2022 7:36 PM EDT) Dominique Hinds MD NURSING TREATMENT ORDERABLES - BLOOD ADMIN UPPER GI ENDOSCOPY (05/31/2022 3:37 PM EDT) Component Value Ref Test Analysis Performed At [facility] Range Method Time Signature UPPER GI [facility] ENDOSCOPY Endoscopy Procedure Date: 05/31/2022 3:37 PM ? Patient Name: Koko Bah ? Date of : 1940 ? Age: 81 ? Order #: [id number] ? Instrument Name: [id number] ? Procedure: ? Upper GI endoscopy Indications: [...] Endoscope w as ? introduced through the [facility], and ? advanced to the [...] Procedure Code(s): ? --- Professional --- ? 46788, Esophagogastroduode noscopy, ? flexible, transoral; with control [...] stomach ? and duodenum CPT copyright 2020 [employer]. All rights reserved. The codes documented in this report are preliminary and upon epic cadence specialists review may be revised to meet current [...] who have questions please contact the health restorative care technician that requested your imaging first. ? Narrative 05/31/2022 2:39 PM EDT EXAMINATION: CT ABDOMEN AND PELVIS [facility] CONTRAST (GI BLEED) CLINICAL HISTORY: Significant Hb drop. U nknown source. has had a [facility] with stent placed and revascularization of left [...] enlarged lymph nodes. Vasculature: Patent common iliac, express manager al iliac, and common femoral arteries [...] the original. EXAMINATION: CT ABDOMEN AND PELVIS [facility] (GI BLEED) CLINICAL HISTORY: Significant Hb [...] enlarged lymph nodes. Vasculature: Patent common iliac, express manager al iliac, and common femoral arteries [...] ho have questions please contact the health restorative care technician that requested your imaging first. Dominique Hinds MD IMG CT ORDERABLES Type and Screen Validity (05/31/2022 1:43 PM EDT)Only the most recent of2 resultswithin the time period is included. [facility] Method Time Signature T&S only valid [facility] LABORATORY Comment: This Type and Screen result is only valid at the [facility] Specimen Anatomical Collection Method Collection Time Receive d Time (Source) Location / / Volume Laterality Blood 05/31/2022 1:43 PM 2 1:57 EDT PM EDT Resulting Agency Comment Spec In Lab Dominique Hinds MD BLOOD BANK ORDERABLES Performing Organization Address City/State/ZIP [place] [address] ABORH Recheck Status (05/31/2022 1:43 PM EDT)Only the most recent of2 results within the time period is included. [facility] Method Time Signature ABORH Type Completed [facility] LABORATORY Specimen Anatomical Collection Method Collection Time Receive d Time (Source) Location / / Volume Laterality Blood 05/31/2022 1:43 PM 2 1:57 EDT PM EDT Resulting Agency Comment Spec In Lab Dominique Hinds MD BLOOD BANK ORDERABLES Performing Organization Address City/[facility]/[place] [address] ABO/Rh Typing (05/31/2022 1:43 [...] MD BLOOD BANK ORDERABLES Performing Organization Address [facility]/[place] [address] Antibody screen (05/31/2022 1:43 PM EDT)Only the most recent of2 resultswithin the time period is included. Patholo gist Method Time Signature Ab Screen Negative [facility] LABORATORY Expires at 06/03/2022 [facility] [id number] on: [facility] LABORATORY Specimen Anatomical Collection Method Collection Time Receive d Time (Source) Location / / Volume Laterality Blood 05/31/2022 1:43 PM 2 1:57 EDT PM EDT Resulting Agency Comment Spec In Lab Dominique Hinds MD BLOOD BANK ORDERABLES Performing Organization Address City/[facility]/ZIP Code Phon e Number [address] Prepare RBC (05/31/2022 1:35 PM EDT)Only the most recent of2 resultswithin the time period is included. P athologist Signature Dispensed? Yes [facility] Specimen Anatomical Collection Method Collection Time Receive d Time (Source) Location / / Volume Laterality Blood 05/31/2022 1:35 PM 2 1:30 EDT PM EDT Dominique Hinds MD BLOOD BANK ORDERABLES Performing Organization Address City/State/ZIP [place] [address] (ABNORMAL) BLOOD GAS 2 VENOUS (05/31/2022 11:24 AM EDT) P athologist Signature pH [place] 7.38 7.32 - [facility] 7.42 [facility] LABORATORY pCO2 [place] 40 (L) 41 - 51 [facility] LABORATORY pO2 [place] 18 (L) 25 - 40 [facility] LABORATORY HCO3 [place] 23.3 mmol/L [facility] BE Marco Antonio -1.8 mmol/L [facility] Hgb Blood Gas 7.0 (L) 13.7 - [facility] 16.5 g/dL [facility]ORATORY O2HB [place] 24.3 % [facility] COHB [place] 1.4 % [facility] Comment: Nonsmokers: 0.5-1.5% COHB Smokers: Variable, but usually less than 10% Toxic: 20-30% COHB Lethal: Greater than 60% COHB METHB [place] 1.7 (H) <=1.5 % [facility] LABORATORY Na Whole Blood 137 135 - 145 mmol/L [facility] LABORATORY K Whole Blood 3.9 3.5 - 5.0 mmol/L [facility] [...] Blood 107 98 - 107 mmol/L [facility] Gluc Whole Bld 204 (H) 65 - 199 mg/dL [facility] LABORATORY Comment: Diabetes: >=200 mg/dL plus symp toms Lactate WB 1.4 0.5 - 2.2 mmol/L [facility] BGas Source Venous [facility] LABORATORY Specimen Anatomical Collection Method Collection Time Receive d Time (Source) Location / / Volume Laterality Blood 05/31/2022 11:24 05/31/2022 AM EDT 11:24 AM EDT Dominique Hinds MD CHEMISTRY ORDERABLES Performing Organization Address City/[facility]/ZIP Code Phon e Number [address] TSH [place] (05/31/2022 11:20 AM EDT) P athologist Signature [facility] 1.67 0.27 - 4.20 [facility] LAB[facility]ATORY Comment: Reference Interval (mcIU/mL): Females: ??First Trimester: 0.23-3.88 ??Second Trimester: 0.22-3.90 ??Third Trimester: 0.44-4.66 Specimen Anatomical Collection Method Collection Time Receive d Time (Source) Location / / Volume Laterality Blood 05/31/2022 11:20 05/31/2022 AM EDT 11:28 AM EDT Resulting Agency Comment Spec In Lab Dominique Hinds MD CHEMISTRY ORDERABLES Performing Organization Address City/[facility]/ZIP Code Phon e Number [address] XR Chest PA & [...] who have questions please contact the health restorative care technician that requested your imaging first. ? Electronically signed by: Alan strong MD, [facility] ([phone]), at 05/31/2022 11:33 AM Narrative 05/31/2022 11:33 [...] ho have questions please contact the health restorative care technician that requested your imaging first. Dominique Hinds MD IMG DX ORDERABLES Blue Tube HOLD (05/31/2022 10:50 AM EDT) athologist Signature Blue Hold Sample in [facility] lab. [facility] LABORATORY Specimen Anatomical Collection Method Collection Time Receive d Time (Source) Location / / Volume Laterality Blood Venous Draw / 05/31/2022 10:50 05/31/2022 Unknown AM EDT 11:05 AM EDT Brittany Ramirez MD HEMATOLOGY ORDERABLES Performing Organization Address City/State/ZIP [place] [address] Troponin (05/31/2022 10:50 AM EDT) athologist Signature Troponin-T <0.01 0.00 - 0.00 [facility] ng/mL [facility] LABORATORY Comment: The 99th percentile [...] sample may be indicated. Reference: Third [place] Definition of Myocardial Infarction. Journal of the [place] [employer] 2012;60:1581-98 Specimen Anatomical Collection Method Collection Time Receive d Time (Source) Location / / Volume Laterality Blood 05/31/2022 10:50 05/31/2022 AM EDT 11:03 AM EDT Resulting Agency Comment Spec In Lab Dominique Hinds MD CHEMISTRY ORDERABLES Performing Organization Address City/State/ZIP Code Phon e Number [address] Phosphorus (05/31/2022 10:50 AM EDT)Only the most recent of2 resultswithin the time period is included. P athologist Signature Phosphorus 3.2 2.5 - 4.5 [place] X[place] mg/dL [facility] LABORATORY Specimen Anatomical Collection Method Collection Time Receive d Time (Source) Location / / Volume Laterality Blood 05/31/2022 10:50 05/31/2022 AM EDT 11:03 AM EDT Resulting Agency Comment Spec In Lab Dominique Hinds MD CHEMISTRY ORDERABLES Performing Organization Address City/[facility]/ZIP Code Phon e Number [address] (ABNORMAL) pro-Brain Natriuretic Peptide (05/31/2022 10:50 AM EDT) P athologist Signature ProBNP 1,077 (H) <=449 [place] XIAO pg/mL [facility] LABORATORY Specimen Anatomical Collection Method Collection Time Receive d Time (Source) Location / / Volume Laterality Blood 05/31/2022 10:50 05/31/2022 AM EDT 11:03 AM EDT Resulting Agency Comment Spec In Lab Dominique Hinds MD CHEMISTRY ORDERABLES Performing Organization Address City/[facility]/ZIP Code Phon e Number [address] Lipase (05/31/2022 10:50 AM EDT) P athologist Signature Lipase 41 0 - 60 [facility] XIAO unit/L [facility] LABORATORY Specimen Anatomical Collection Method Collection Time Receive d Time (Source) Location / / Volume Laterality Blood Venous Draw / 05/31/2022 10:50 05/31/2022 Unknown AM EDT 11:11 AM EDT Resulting Agency Comment Spec In Lab Zain Champion MD CHEMISTRY ORDERABLES Performing Organization Address City/[facility]/[place] [address] (ABNORMAL) Hepatic Function Panel (05/31/2022 10:50 AM EDT) Analysis Performed At Patho logist Time Signature Total Protein 6.4 6.1 - 8.0 [place] X[place] g/dL [facility] Albumin 4.1 3.2 - 5.2 [place] g/dL [facility] AST 24 0 - 39 [facility] X[facility] unit/L [facility] ALT 44 0 - 55 [facility] unit/L [facility]ORY Alk Phos 63 40 - 130 [facility] Total <0.2 (L) 0.2 - 1.3 [place] Bilirubin mg/dL [facility] Bili, Direct 0.1 0.0 - 0.3 [facility] XIAO mg/dL [facility] LAB[facility]ORY Specimen Anatomical Collection Method Collection Time Receive d Time (Source) Location / / Volume Laterality Blood Venous Draw / 05/31/2022 10:50 05/31/2022 Unknown AM EDT 11:11 AM EDT Resulting Agency Comment Spec In Lab Zain Champion MD CHEMISTRY ORDERABLES Performing Organization Address City/[facility]/[place] [address] EKG 12 Lead (05/31/2022 10:11 AM EDT)Only the most recent of3 resultswithin the time period is included. Component Value Ref Range Test Analysis Performed Pathologis t Method Time At Signature Ventricular rate 106 BPM MUSE SYSTEM QRS Duration 122 ms MUSE SYSTEM Q-T Interval 368 ms MUSE SYSTEM QTC Calculated 488 ms MUSE SYSTEM (Bezet) Calculated R [place] -43 degrees MUSE SYSTEM Calculated T [place] 109 degrees MUSE SYSTEM INTERPRETATION Atrial fibrillation with rapid ventricular response MUSE SYSTEM Left axis deviation Minimal voltage criteria for LVH, may be normal variant ( [place] product ) Cannot rule out Anterior infarct , age undetermined Abnormal ECG When compared with ECG of 20-MAY-2022 19:04, No significant change was found I personally reviewed the tracing and edited the fellows int erpretation Confirmed by fellow MD Mike, [place] ([id number]) on 022 8:36:21 PM Confirmed by MD [...] Laterality Volume Narrative 05/20/2022 7:09 PM EDT ?[facility] ? Cardiac Cathete rization/Intervention Report ? Patient Name: Koko Bah. ? Procedure Date: 05/20/2022 ? A #: [id number] ? Primary Physician: Malathi, Abundio S ? Case #: [id number] ? File Name: [id number] ? Catheterization Order Number: [id number] ? [facility] ? Final Report [place], [place] ? Patient Name: ? Koko J. Klarissa uson ? ID#: ?[id number] ? : ?1940 ? Procedure Date: ? [...] procedure was Urgent. The indication for ?the civil laboratory technician visit is cardiomyo nita. Chest [...] ?3.5 guiding catheter and a 3.5 Fr [facility] [place] [address] ??20 Mhz. ??Imaging ?was successful. ??Image [...] A premounted 2. 75 x 30 mm [place] (AMPARO) was deployed ? with a maximum [...] ?modification of this regimen. C onsult [facility] Interventional [...] note might be different from the original. [facility] Cardiac Catheterization/Intervention Re port Patient Name: Koko Bah Procedure Date: 05/20/2022 A #: [id number] Primary Physician: Abundio Servin Case #: File Name: [id number] Catheterization Order Number: [id number] [facility] Internal Control Analyst [facility] Final Report [place], [place] Patient Name: Koko Bah ID#: [id number] : 1940 Procedure Date: May 20, 2022 [...] designated a s ASA Class IV. The [facility] clinical frailty scale is 3: [...] e was Urgent. The indication for the civil laboratory technician visit is cardiomyopathy. C hest pain symptom [...] 3.5 guiding catheter and a 3.[address] [facility] [place] [address] 20 Mhz. Imaging was successful. Image [...] atmospheres. A premounted 2.75 x 30 mm [place] (AMPARO) was deployed with a maximum inflation [...] 123 65 - 199 ILDA XIAO mg/dL [facility] Comment: Supplemental ranges: <140 mg/dL before meals <180 mg/dL all other times of the day Specimen Anatomical Collection Method Collection Time Receive d Time (Source) Location / / Volume Laterality Blood 05/20/2022 5:42 PM 2 5:42 EDT PM EDT Fito Summers MD POINT OF CARE TEST ORDERABLE S Performing Organization Address City/State/[place] [address] (ABNORMAL) BMP w/fasting Glucose (05/20/2022 10:50 AM EDT) P athologist Signature Glucose 152 (H) 65 - 99 [facility] Fasting mg/dL [facility] Comment: ?Fasting* Glucose Interpretive [...] of Diabetes Mellitus, Position Statement from the [place] [employer]. ??Diabete s Care, Volume 33, Supplement 1, Nov 2009 BUN 11 10 - 20 mg/dL [facility] Creatinine 0.63 (L) 0.80 - 1.50 mg/dL [facility] Sodium 137 135 - 145 mmol/L [facility] Potassium 3.6 3.5 - 5.0 mmol/L [facility] Comment: Please note: ??Patients with WBC >100,00 0 may have falsely elevated Potassium levels. ??For accurate Potassium quantif ication in these patients send serum separator tube (gold top) for subsequent determinations. ??Contact the Clinical Chemistry Laboratory if there are any qu estions. Chloride 103 98 - 107 mmol/L [facility] CO2 24 22 - 31 mmol/L [facility] Anion Gap 10 5 - 15 mmol/L [facility] Calcium 8.7 8.5 - 10.5 mg/dL [facility] Estimated GFR 97 >=60 mL/min/1.73 m?? [facility] Comment: [...] City/[facility]/ZIP Code Phon e Number [address] TSH (05/18/2022 8:00 PM EDT) P athologist Signature TSH 2.27 0.27 - 4.20 [facility] mcIU/mL [facility] Comment: Reference Interval (mcIU/mL): Females: ??First Trimester: 0.23-3.88 ??Second Trimester: 0.22-3.90 ??Third Trimester: 0.44-4.66 Specimen Anatomical Collection Method Collection Time Receive d Time (Source) Location / / Volume Laterality Blood 05/18/2022 8:00 PM 8:06 EDT PM EDT Resulting Agency Comment Spec In Lab Fito Summers MD CHEMISTRY ORDERABLES Performing Organization Address [facility] Phon e Number [address] (ABNORMAL) Urinalysis Microscopic Exam (05/16/2022 11:15 PM EDT) athologist Signature RBC UA 8 (H) 0 - 3 /HPF [facility] WBC UA 2 0 - 3 /HPF [facility] Specimen Anatomical Collection Method Collection Time Receive d Time (Source) Location / / Volume Laterality Clean Catch 05/16/2022 11:15 05/16/2022 Urine PM EDT 11:30 PM EDT Resulting Agency Comment Spec In Lab Barbie Patiño MD URINE ORDERABLES Performing Organization Address City/[facility]/ZIP [facility] Phon e Number [address] XR Chest One View [...] who have questions please contact the health restorative care technician that requested your imaging first. ? Electronically signed by: Tiffanie George MD , [facility] ([phone]), at 05/16/2022 9:27 PM Narrative 05/16/2022 9:27 [...] ho have questions please contact the health restorative care technician that requested your imaging first. Electronically signed by: Tiffanie George MD , [facility] ([phone]), at 05/16/2022 9:27 PM Fito Summers MD IMG DX ORDERABLES ECHOCARDIOGRAM COMPLETE W CONTRAST (05/16/2022 12:49 PM EDT) P athologist Signature EF 28 [facility] Anatomical Region Laterality Modality Cardiac Other Specimen (Source) Anatomical Collection Method Collection Time Re ceived Time Location / / Volume Laterality 05/16/2022 11:22 AM EDT Narrative 05/16/2022 1:54 PM EDT ?[facility] ?[address] ? [place] [address] ?Voice: ?Fax: ? Echocardiogram Report Name: KOKO BAH ?Study Date: 05/16/2022 11:22 AM ? Patient Location: [address] [place], [place] [address] : 1940 ? Height: 67.5 in ? Account: [id number] Age: 81 yrs ? Weight: 176 lb Gender: Male ?BSA: 1.9 m2 Ordering Physician: FITO SUMMERS Referring Physician: MALI FLORIAN Performed By: Jolene Bernard RDCS Exam Location: [facility]. Interpretation Summary Left ventricle is mildly [...] and LV systolic dysfunction are new. Procedure Complete-82547. Image enhancement Optiso n was used for [...] be different from the original. [facility] [address] [place] [address] Voice: Fax: Echocardiogram Report Name: KOKO BAH Study Date: 05/2022 11:22 AM Patient Location: [address] [place] [address] : 1940 Height: 67.5 in Account: [id number] Age: 81 yrs Weight: 176 lb Gender: Male BSA: 1.9 m2 Ordering Physician: FITO SUMMERS Referring Physician: MALI FLORIAN Performed By: Jolene Bernard RDCS Exam Location: [facility]. Interpretation Summary Left ventricle is mildly [...] and LV systolic dysfunction are new. Procedure Complete-[id number]. Image enhancement Optiso n was used for [...] Art 7.33 (L) 7.35 - [facility] 7.45 [facility] pCO2 Art 41 35 - 45 [facility] LABORATORY pO2 Art 131 (H) 85 - 104 [facility] HOSPITAL LABORATORY HCO3 Art 21.1 20.0 - [facility] 26.0 [facility] mmol/L [facility] BE Art -4.8 (L) -3.0 - 3.0 [facility] mmol/L [facility] Hgb Blood Gas 13.4 (L) 13.7 - [facility] 16.5 g/dL [facility] O2HB Art 96.9 94.0 - [facility] 97.0 % [facility] COHB Art 1.4 % [facility] Comment: Nonsmokers: 0.5-1.5% COHB Smokers: Variable, but usually less than 10% Toxic: 20-30% COHB Lethal: Greater than 60% COHB METHB Art 0.3 <=1.5 % [facility] Na Whole Blood 139 135 - 145 mmol/L [facility] K Whole Blood 3.8 3.5 - 5.0 mmol/L [facility] Comment: Please note: Patients with WBC >100,000 may have falsely elevated Potassium levels. Contact the Clinical Chemistry L aboratory if there are any questions. ICa Whole Blood 1.32 1.15 - 1.33 mmol/L [facility] [...] Address City/State/ZIP [place] [address] (ABNORMAL) APTT (05/15/2022 12:30 PM EDT) P athologist Signature PTT 76 (H) 25 - 37 sec [facility] Comment: The PTT is NOT [...] [facility] HEMATOLOGY ORDERABLES Performing Organization Address City/[facility]/ZIP [facility] Phon e Number [address] (ABNORMAL) Prothrombin Time (05/15/2022 12:30 PM EDT) athologist Signature PT 12.9 (H) 9.4 - 12.5 [facility] LABORATORY INR 1.1 [facility] Comment: An INR <2.0 [...] [facility] Hospital HEMATOLOGY ORDERABLES Performing Organization Address City/[facility]/ZIP [facility] [place] [address] Gold Tube HOLD (05/15/2022 12:20 PM EDT) athologist Signature Gold Hold Sample in [facility]. [facility] Specimen Anatomical Collection Method Collection Time Receive d Time (Source) Location / / Volume Laterality Blood No Charge / 05/15/2022 12:20 05/15/2022 Unknown PM EDT 12:20 PM EDT Lc TRIPP CHEMISTRY ORDERABLES Performing Organization Address City/State/ZIP [place] [address] CK (05/15/2022 12:00 PM EDT) P athologist Signature CK, Total 87 0 - 200 [facility] unit/L [facility] Specimen Anatomical Collection Method Collection Time Receive d Time (Source) Location / / Volume Laterality Blood Venous Draw / 05/15/2022 12:00 05/15/2022 Unknown PM EDT 12:19 PM EDT Resulting Agency Comment Spec In Lab Fito Summers MD CHEMISTRY ORDERABLES Performing Organization Address City/[facility] [place] [address] Film Library- Storage Only CT Abdomen (05/15/2022 9:32 AM EDT) Specimen (Source) Anatomical Location Collection Method / Collectio n Time Received Time / Laterality Volume Narrative RAD - 05/15/2022 9:32 AM EDT This exam is auto-finalizing. It's purpo se is for storage only. Matt Branham MD [facility] FILM LIBRARY ORDERABLES Performing Organization Address [facility] Code Phon e Number [place], [place] Film Library- Storage Only DX Chest (05/15/2022 9:31 AM EDT) Specimen (Source) Anatomical Location Collection Method / Collectio n Time Received Time / Laterality Volume Narrative RAD - 05/15/2022 9:31 AM EDT This exam is auto-finalizing. It's purpo se is for storage only. Matt Branham MD IM FILM LIBRARY ORDERABLES Performing Organization Address City/[facility]/ZIP Code Phon e Number [place], [place] from Last 3 Months Insurance Payer Benefit Plan / Subscriber ID Effective Phone Address T ype Group Dates MEDICARE MEDICARE PART A [id number] 2007-Pres [phone] [facility] [place] [phone] [facility] [id number] 2007-Pres [phone] [address] [employer] [address] [place] [address] Advance Directives Latest Code Status on File [...] capacity to make decision: Yes Care Teams Graphic Illustrator Relationship Specialty Start Date End Date Bobby Das MD PCP - General 10/02/[address] [place] [address] [place] [phone]
--- OUTSIDE RECORDS SUMMARY | 2022-07-31 08:59 | XMS_ITS | Encounter Summary ---
:1940 Author Organization [place] [address] Care Team Providers Name Role Phone Abby Das MD Primary Care Provider Encounter Details Date Type Department Care Team Description 06/25/2022 Anesthesia Event Gastroenterology at [facility] Abby Alfaro MD [facility] [address] [place] [address] [facility] David Lewis CRNA [facility] [address] [place] [address] [place] [address] Anesthesia Record Procedure Summary Procedure Name [...] vein (antecubital fossa), Mame Peterson RN left; dvsh-hdp-ppuxox catheter system; 18 gauge; Present on admission PIV 06/25/22; 1046; great 06/25/22 1046 by saphenous vein (medial side of Mame Peterson RN leg), right; uxzs-utr-iyavhl catheter system; Anatomical Landmarks; 18 gauge; Present [...] Procedure Summary Date: 06/25/22 Room / Location: [facility] ENDO 4 / [facility] ENDOSCOPY Anesthesia Start: 1101 Anesthesia Stop: 1202 Procedures: EGD, UPPER GI ENDOSCOPY (N/A Trunk) COLONOSCOPY; W CONTROL OF BLEEDING, ANY METHOD (N/A Trunk) SMALL BOWEL ENTEROSCOPY (N/A Trunk) Diagnosis: (melena +./-) Surgeons: Giovani Ponce MD Responsible Provider: Abby Alfaro MD Anesthesia Type: MAC ASA Status: 3 All Anesthesia Providers: Anesthesiologist: Abby Alfaro MD DISTRIBUTING CLERK: David Gill CRNA Vitals Value Taken Time BP 102/85 06/25/22 1240 Temp Pulse Resp 16 06/25/22 1220 SpO2 95 % 06/25/22 1245 Pain Level 0 06/25/22 1220 Vitals shown include unvalidated device data. Patient Location: PACU/[facility] Level of Consciousness: Awake and Alert [...] Date Noted ??? Coronary artery disease involving [place] coronary artery of [place] heart without angina chbtolho89/04/2022 ??? HFrEF (heart failure with reduced ejection [...] IR Biopsy Spine 07/20/2019 Abby Marshall MD [facility] INTERVENTIONL RAD ??? IR VERTEBROPLASTY LUMBAR MULTIPLE LEVELS 07/20/2019 IR Vertebroplasty Lumbar Multiple Levels 07/20/2019 Abyb Marshall MD [facility] INTERVENTIONL RAD ??? IR VERTEBROPLASTY THORACIC SINGLE LEVEL 10/25/2020 IR Vertebroplasty Thoracic Single Level 10/25/2020 Matt Chisholm MD [facility] INTERVENTIONL RAD ??? PRO EMBLC/THRMBC FEMORAL POPLITEAL AORTO-ILIAC ARTERY Left 05/15/2022 EMBOLECTOMY OR THROMBECTOMY, FEMOROPOPLITEAL, AORTOILIAC ARTERY BY LEG INCISION (WRVU 19.48) performed by Fito Summers MD at [facility] MAIN OR ??? PRO UPPER GI ENDOSCOPY, CTRL BLEED 05/31/2022 EGD, W CONTROL OF BLEEDING, ANY METHOD performed by Giovani Ponce MD at [facility] ENDOSCOPY ??? PRO UPPER GI ENDOSCOPY, DIAGNOSTIC N/A 05/31/2022 EGD, UPPER GI ENDOSCOPY performed by Giovani Ponce MD at [facility] ENDOSCOPY Social History Tobacco Use [...] risks discussed with patient. Plan discussed with DISTRIBUTING CLERK. Anesthesia Screening documented in this encounter Plan of Treatment Upcoming Encounters Date Type Specialty Care Team Description 08/08/2022 Office Visit Gastroenterology Negra Collins MD [facility] GASTROENTEROLOGY DEPT [place], [place] [address] (Wo rk) 09/05/2022 Appointment Cardiology Trinity Reid MD [facility] CARDIOLOGY [place], [place] [address] (Wo rk) 09/05/2022 Office Visit Cardiology Trinity Reid MD [facility] CARDIOLOGY [place], [place] [address] (Wo rk) documented as of [...] mg documented in this encounter Care Teams Internal Affairs Investigator Relationship Specialty Start Date End Date Abby Das MD PCP - General 10/02/[address] [place] [address] [place] [phone] documented as of this encounter
--- OUTSIDE RECORDS SUMMARY | 2022-07-31 08:59 | XMS_ITS | Encounter Summary ---
:1940 [place] [address] Care Team Providers Name Role Phone Bobby Das MD Primary Care Provider Encounter Details Date Type Department Care Team Description 06/13/2022 Office Visit Vascular Surgery at [facility] Fito Summers MD Limb ischemia [facility] [place] [address] VASCULAR SURGERY [phone] [place] [address] (Wo rk) Social History Tobacco Use Types [...] Overview Note: Surgery done at [facility] in 2000 ??? Hypertriglyceridemia Overview Note: ??? [...] Fito Summers MD Vascular Surgery [facility] Emily Power CMA - 06/13/2022 8:00 AM EDT Handwashing performed, gloves on.As instructed by windy removed on LLE medial and lateral aspect, cleansed after staple remover, steri strips applied. Gloves off, handwashing performed. documented in this encounter Plan of Treatment Upcoming Encounters Date Type Specialty Care Team Description 08/08/2022 Office Visit Gastroenterology Negra Collins MD [facility] GASTROENTEROLOGY DEPT [place], [place] [address] (Wo rk) 09/05/2022 Appointment Cardiology Trinity Reid MD [facility] [address] [place], [place] [address] (Wo rk) 09/05/2022 Office Visit Cardiology Trinity Reid MD [facility] [address] [place], [place] [address] (Wo rk) documented as of this encounter Visit Diagnoses Diagnosis Limb ischemia Unspecified circulatory system disorder documented in this encounter Care Teams Cathode Ray Tube Assembler Relationship Specialty Start Date End Date Bobby Das MD PCP - General 10/02/[address] [place] [address] [place] [address] documented as of this encounter
--- OUTSIDE RECORDS SUMMARY | 2022-07-31 08:59 | XMS_ITS | Encounter Summary ---
:1940 Author Organization [facility] [place] [address] Care Team Providers Name Role Phone Bobby Das MD Primary Care Provider Encounter Details Date Type Department Care Team Description 06/25/2022 Hospital Encounter Gastroenterology at [facility] Giovani Ponce, [facility] [place] [address] [facility] [phone] [place] [address] Social History Tobacco Use Types Packs/Day [...] the day after the procedure, use an vijx-obt-jztkuse spray to numb your throat. Sucking on [...] occurs, please contact your Doctor. Please call [phone] before 8pm Mon-Fri with problems, questions or concerns. If you call after 8pm or on weekends, call the Hospital at [phone] and ask to speak to the Slip Seat Coverer carbonation equipment operator and the traveling crane operator will contact that person for you. When should you call for help? Call [phone] anytime you think you may need emergency [...] any problems. Where can you learn more? [facility] View your After Visit Summary and more online at [email or web address] If you would like to provide [...] cost to you. Content Version: 12.2 ?? [id number] [employer]. Care instructions adapted under license by [facility]. If you have questions about a medical condition or this instruction, always ask your healthcare professional. [employer] disclaims any warranty or liability for your [...] occurs, please contact your Doctor. Please call [phone] before 8pm Mon-Fri with problems, questions or concerns. If you call after 8pm or on weekends, call the Hospital at [phone] and ask to speak to the Slip Seat Coverer carbonation equipment operator and the traveling crane operator will contact that person for you. When should you call for help? Call [phone] anytime you think you may need emergency [...] any problems. Where can you learn more? [facility] View your After Visit Summary and more online at [email or web address] If you would like to provide [...] cost to you. Content Version: 12.2 ?? [id number] [employer]. Care instructions adapted under license by [facility]. If you have questions about a medical condition or this instruction, always ask your healthcare professional. [employer] disclaims any warranty or liability for [...] 21 (FLONASE) 50 mcg/actuation Nare route daily [place], Suspension as needed. fluorouraciL (EFUDEX) 5 % [...] ??? Coronary artery disease involving [place] coronary artery of [place] heart without angina quavylibP11.10 ??? HFrEF (heart failure with reduced ejection [...] Collins MD [facility] GASTROENTEROLOGY DEPT [place], [place] [address] (Wo rk) 09/05/2022 Appointment Cardiology Trinity Reid MD [facility] CARDIOLOGY [place], [place] [address] (Wo rk) 09/05/2022 Office Visit Cardiology Trinity Reid MD [facility] DR CARDIOLOGY [place] [address] (Wo rk) documented as of this [...] [facility] Range Method Time Signature UPPER GI [facility] ENDOSCOPY Endoscopy Procedure Date: 06/25/2022 10:33 AM ? Patient Name: Koko Zamora ? Date of : 1940 ? Age: 81 ? Order #: [id number] ? Instrument Name: EC-760P- [id number] ? Procedure: ? Upper GI endoscopy Indications: ? Recent gastrointestinal bleeding Providers: ? Giovani Ponce, Isi puente, ? Brissa Vee RN, Juvenal ? Confalone Referring MD: ?Marcelroper [facility]: ? Propofol per Anesthesia Complications: ? No [...] as ? introduced through the [facility], and ? advanced to the second [...] Test Analysis Performed At [facility] Method Time Signature COLONOSCOPY [facility] Endoscopy Procedure Date: 06/25/2022 10:33 AM ? Patient Name: Koko Zamora ? Date of : 1940 ? Age: 81 ? Order #: [id number] ? Instrument Name: EC-760P- [id number] ? Procedure: ? Colonoscopy Indications: ? Gastrointestinal bleeding Providers: ? Giovani Ponce, Iis puente, ? Brissa Vee, DION, Juvenal ? [...] Procedure Code(s): ? --- Professional --- ? 28915, Colonoscopy, flexib le; with ? control of [...] of sigmoid ? colon CPT copyright 202 [employer]. All rights reserved. The codes documented in this report are preliminary and upon switchboard wirer review may be revised to meet current [...] Procedure) documented in this encounter Care Teams Paediatric Surgeon Relationship Specialty Start Date End Date Bobby Das MD PCP - General 10/02/[address] [place] [address] [place] [phone] documented as of this encounter
--- OUTSIDE RECORDS SUMMARY | 2022-07-31 08:59 | XMS_ITS | Encounter Summary ---
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 [address] [place] [address] [place] [address] Fax: Referral ID Status Reason Start Date Expiration Visits Visits Date Requested Authorized [id number] Authorized Consult, 06/17/2022 06/17/2023 1 1 Test & Treat Encounter Details Date Type Department Care Team Description 06/17/2022 Orders Only Dermatology at [facility] Basal cell carcinoma Nicol CARCAMO (BCC) of right [address] [place] [address] DERMATOLOGY [place], [place] [address] Social History Tobacco Use Types [...] MD [facility] GASTROENTEROLOGY DEPT [place], [place] [address] (Wo rk) 09/05/2022 Appointment Cardiology Trinity Reid MD [facility] CARDIOLOGY [place], [place] [address] (Wo rk) 09/05/2022 Office Visit Cardiology Trinity Reid MD [facility] CARDIOLOGY [place], [place] [address] (Wo rk) Scheduled Referrals Name Type Priority Associated Order Schedule Diagnoses Referral to Outpatient Referral Routine Basal cell Ordered: Dermatology carcinoma (BCC) of 2 right forehead documented as of this encounter Visit Diagnoses Diagnosis Basal cell carcinoma (BCC) of right fore head documented in this encounter Care Teams Alteration Tailor Relationship Specialty Start Date End Date Bobby Das MD PCP - General 10/02/[address] [place] [address] [place] [id number] documented as of this encounter
--- OUTSIDE RECORDS SUMMARY | 2022-07-31 09:00 | XMS_ITS | Encounter Summary ---
:1940 Author Organization [place] [address] Care Team Providers Name Role Phone Bobby Das MD Primary Care Provider Reason for Visit Reason Comments Dizziness Auth/Cert Specialty Diagnoses / Procedures Referred By Contact Refer red To Contact Diagnoses GIB (gastrointestinal bleeding) Abe [facility] [place] [address] Referral ID Status Reason Start Date Expiration Date Visits Requ ested Visits Authorized [id number] 1 1 Encounter Details Date Type Department Care Team Description 05/31/[address] [facility] Giovani Ponce, EGD, UPPER GI [facility] Bobby gilliland [place] [address] [facility] [phone] [place] 0[address] Social History Tobacco Use Types Packs/Day [...] switching to a different bloodthinner with the supervisor toy parts former outpatient. Call your doctor or seek medical [...] switchingto a different blood thinner with your supervisor toy parts former as an outpatient Stopped Medications - Aspirin - Valsartan - Speak with your supervisor toy parts former about the timing of restarting this Follow-up Appointments Future Appointments Date Time Provider Department Center 06/10/2022 11:00 AM Loretta Cohen MD [facility] 06/13/2022 7:30 AM Edson [place]os [place] [facility] VAS LAB [facility] 06/13/2022 8:00 AM Fito Summers MD [facility] V SURG [facility] 06/13/2022 10:00 AM Alan Reid MD [facility] CARD [address] [place] [address] Your Inpatient Medical Team at [facility] Name(s) of your inpatient provider(s): Dr. John Ames For questions regarding issues relating to your hospitalization on the Hospital Medicine Service, please contact your inpatient physician through the [facility] Stake Setter [phone]. Issues after hours and on weekends will be handled by the Hospitalist staff on-call. Your Primary Care Provider Bobby Das MD [phone] Future Appointments and Orders Future Appointments and Orders Future Appointments Provider Department Dept Phone 06/10/2022 11:00 AM Loretta Cohen MD Dermatology at [facility] Arrive at: Director Of Financial Reporting [address] [place] [phone] 06/13/2022 7:30 AM Edson [place]os [place] Vascular Lab at [facility] Arrive at: Director Of Financial Reporting Area 06/13/2022 8:00 AM Fito Summers MD Vascular Surgery at [facility] Arrive at: Director Of Financial Reporting Area 06/13/2022 10:00 AM Alan Reid MD Cardiology at [facility] Arrive at: Director Of Financial Reporting Area 4A [phone] For questions regarding this document or issues relating to this hospitalization on the Medical Service, please contact your inpatient physician through the [facility] Stake Setter . Issues after hours and on weekends [...] switching to a different bloodthinner with the supervisor toy parts former outpatient. Call your doctor or seek medical [...] switchingto a different blood thinner with your supervisor toy parts former as an outpatient Stopped Medications - Aspirin - Valsartan - Speak with your supervisor toy parts former about the timing of restarting this Follow-up Appointments Future Appointments Date Time Provider Department Center 06/10/2022 11:00 AM Loretta Cohen MD [facility] 06/13/2022 7:30 AM Edson [place]os [place] [facility] VAS LAB [facility] 06/13/2022 8:00 [...] [facility] Stake Setter [phone]. Issues after hours and on weekends will be handled by the Hospitalist staff on-call. Your Primary Care Provider Bobby Das MD [phone] documented in this encounter Medications at Time [...] 04/12/20 21 (FLONASE) 50 mcg/actuation Nare route Wilmot, Suspension daily as needed. fluorouraciL (EFUDEX) 5 [...] spent >30 minutes (Day of Discharge Code 15386) involved in the final examination of the [...] the original note were not included. [facility] Medicine Progress Note [place] Team - Pager #[phone] Admit Date: 05/31/2022 Name: Koko Zamora : [...] cardiology to discuss antiplatelet (ISO bleed and chcf), following. ?? #CAD s/p stenting recently #HFrEF [...] Kurt Ames MD Internal Medicine, PGY-1 Medicine [place] Team #[id number] Associated attestation - John Jolley MD - [...] the original note were not included. [facility] Medicine (#[id number]) History and Physical Patient info: Name: Koko Zamora : 1940 PCP: Bobby Das MD PCP phone number: [phone] Date of Admission: 05/31/2022 ( Hospital Day [...] IR Biopsy Spine 07/20/2019 Bobby Marshall MD [facility] INTERVENTIONL RAD ??? IR VERTEBROPLASTY LUMBAR MULTIPLE LEVELS 07/20/2019 IR Vertebroplasty Lumbar Multiple Levels 07/20/2019 Bobby Marshall MD [facility] INTERVENTIONL RAD ??? IR VERTEBROPLASTY THORACIC SINGLE LEVEL 10/25/2020 IR Vertebroplasty Thoracic Single Level 10/25/2020 Matt Chisholm MD [facility] INTERVENTIONL RAD ??? PRO EMBLC/THRMBC FEMORAL POPLITEAL AORTO-ILIAC ARTERY Left 05/15/2022 EMBOLECTOMY OR THROMBECTOMY, FEMOROPOPLITEAL, AORTOILIAC ARTERY BY LEG INCISION (WRVU 19.48) performed by Fito Summers MD at [facility] MAIN OR No family history on [...] 11 ??? fluticasone propionate (FLONASE) 50 mcg/actuation Wilmot, Suspension as needed. ??? fluorouraciL (EFUDEX) 5 [...] Gas) No results found for: PHART, PO2ART, XBY5MFD, VUD1OND Microbiology: N/A Pertinent radiology/diagnostic studies: Recent prior [...] Status: Full Arpita Valle MD, PGY-3 05/31/2022 [facility] Medicine # [id number] Attending Staff Admission [...] 05/31/2022 3:58 PM EDT [facility]. Upon arrival [...] AM EDT Pt brought to by radio communications superintendent Brittany Ramirez MD - 05/31/2022 10:40 AM [...] have questions please contact the health rn home care that requested your imaging first. Electronically signed by: Jl Zuluaga MD, [facility] ([phone]), at 05/31/2022 2:39 PM XR Chest PA [...] have questions please contact the health rn home care that requested your imaging first. Electronically signed by: Alan Brink MD, [facility] ([phone]), at 05/31/2022 11:33 AM ED Course as [...] recommendations from Brittany Tavares MD Resident 05/31/22 0170 Associated attestation - Regina Hinds MD - [...] soft blood pressures, MD made aware. LBM PILL MAKER. 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 Patient reported [...] not included. [facility] [place] [address] INPATIENT CARDIOLOGY CONSULT NOTE Date of Consultation: 06/01/2022 Admit Date: 05/31/2022 Place of Service: IS86/IS86-A Referring Attending: REGINA HINDS COLEMAN W FRIEDMAN, HARLEY P Responsible Claim Attorney: Dr. Rizo Hospital Day 1 day Reason for Consult: Antiplatelet/anticoagulation s/p pci and afib, with GI bleed HPI: Koko Zamora is a 81 y.o. male with a cardiac history significant for remote mitral valve repair (2000), pre-DM, HLD, significant alcohol use, tobacco use, Afib on xarelto, ischemic systolic heartfailure (recent [facility] 05/20/2022 with 2V disease OM1 [...] IR Biopsy Spine 07/20/2019 Bobby Marshall MD [facility] INTERVENTIONL RAD ??? IR VERTEBROPLASTY LUMBAR MULTIPLE LEVELS 07/20/2019 IR Vertebroplasty Lumbar Multiple Levels 07/20/2019 Bobby Marshall MD [facility] INTERVENTIONL RAD ??? IR VERTEBROPLASTY THORACIC SINGLE LEVEL 10/25/2020 IR Vertebroplasty Thoracic Single Level 10/25/2020 Matt Chisholm MD [facility] INTERVENTIONL RAD ??? PRO EMBLC/THRMBC FEMORAL POPLITEAL AORTO-ILIAC ARTERY Left 05/15/2022 EMBOLECTOMY OR THROMBECTOMY, FEMOROPOPLITEAL, AORTOILIAC ARTERY BY LEG INCISION (WRVU 19.48) performed by Fito Summers MD at [facility] MAIN OR ALLERGIES: Allergies Allergen Reactions [...] time ??? fluticasone propionate (FLONASE) 50 mcg/actuation Wilmot, Suspension 1 spray by Each Nare route [...] 3.5 guiding catheter and a 3.5 Fr [facility] [facility] [employer] [address] 20 Mhz. Imaging was successful. Image [...] A premounted 2.75 x 30 mm Rudy [place] (AMPARO) was deployed with a maximum inflation [...] Hb drop. Unknown source. has had a [facility] with stent placed and revascularization [...] have questions please contact the health rn home care that requested your imaging first. Electronically signed by: Jl Zuluaga MD, [facility] ([phone]), at 05/31/2022 2:39 PM [place] 48 Hrs-15 [...] have questions please contact the health rn home care that requested your imaging first. Electronically signed by: Alan Brink MD, [facility] ([phone]), at 05/31/2022 11:33 AM LABS Recent Labs [...] on xarelto, ischemic systolic heart failure (recent [facility] 05/20/2022 with 2V disease OM1 [...] [facility] Lanolin Plant Operator, PGY-5 Inpatient Cardiology Consults Pager #[phone] Please check Qgenda for on-call cardiology consults [...] A&Ox 4. On room air. VSS. LBM: PILL MAKER. Adequate urine output, urinal at bedside, [...] surrogate would be surrogate decision maker per [place] surrogate decision making law. (Only good for 180 days) Any patient receiving care in [place] must abide by [place] law. The hierarchy for surrogate decision making [...] walker - rolling Home Address confirmed as: [address] [place] [phone] Social & Family Supports: All names listed below confirmed with patient as current and correct Extended Emergency Contact Information Primary Emergency Contact: Ursula Zamora Address: [address] [place] [id number] [facility] Relation: Spouse Current Care Provided by: self [...] Type: *No Product type* / Secondary Insurance: [facility] Secondary Insurance? (Only Medicare A&B): Yes ; Prescription Coverage: Yes Preferred [facility]acy: [facility] [place], [place] - [address] [place] [address] [place] [address] [place] Status: Patient is a : No Primary Care Provider: Bobby Das MD [phone] Patient/Caregiver Goals of Treatment: Patient plans to [...] with transition of care planning. ASH [place] Continuity Person [facility] Medicine/ Medical Specialties Pager- [phone] Plan [...] Operative Note Patient Name: Koko Zamora : [id number] MR#: [id number] Case Date: 05/31/2022 Surgeon: Surgeon(s) and Role: [...] stomach. He has had colonoscopies before in [place] - notes first ever he had 6 [...] IR Biopsy Spine 07/20/2019 Bobby Marshall MD [facility] INTERVENTIONL RAD ??? IR VERTEBROPLASTY LUMBAR MULTIPLE LEVELS 07/20/2019 IR Vertebroplasty Lumbar Multiple Levels 07/20/2019 Bobby Marshall MD [facility] INTERVENTIONL RAD ??? IR VERTEBROPLASTY THORACIC SINGLE LEVEL 10/25/2020 IR Vertebroplasty Thoracic Single Level 10/25/2020 Matt Chisholm MD [facility] INTERVENTIONL RAD ??? PRO EMBLC/THRMBC FEMORAL POPLITEAL AORTO-ILIAC ARTERY Left 05/15/2022 EMBOLECTOMY OR THROMBECTOMY, FEMOROPOPLITEAL, AORTOILIAC ARTERY BY LEG INCISION (WRVU 19.48) performed by Fito Summers MD at [facility] MAIN OR SOCIAL HX: Social History [...] sounds, tympanic to percussion RECTAL: performed with kettle girl present, no overt masses, fissures, external hemorrhoids, [...] have questions please contact the health rn home care that requested your imaging first. Electronically signed by: Alan Brink MD, [facility] ([phone]), at 05/31/2022 11:[address] Abdomen & [...] MD [facility] GASTROENTEROLOGY DEPT [place], [place] [address] (Wo rk) 09/05/2022 Appointment Cardiology Trinity Reid MD [facility] CARDIOLOGY [place], [place] [address] (Wo rk) 09/05/2022 Office Visit Cardiology Trinity Reid MD [facility] CARDIOLOGY [place], [place] [address] (Wo rk) documented [...] Abs (ANC) 4.44 1.70 - [facility] 6.10 [facility] x10(3)/[facility] LABORATORY Lymphocytes % 25.2 % [facility] LABORATORY Lymphocytes Abs 1.8 0.9 - 3.2 [facility] x10(3)/[facility] LABORATORY Monocytes % 10.0 % [facility] LABORATORY Monocyte Abs 0.7 0.3 - 0.9 [facility] x10(3)/[facility] LABORATORY Eosinophils % 2.1 % [facility] LABORATORY Eosinophils Abs 0.2 0.0 - 0.4 [facility] x10(3)/[facility] LABORATORY Basophils % 0.7 % [facility] LABORATORY Basophils Abs 0.0 0.0 - 0.1 [facility] x10(3)/[facility] LABORATORY Immature Gran % 0.70 % [facility] [...] Abs 0.05 (H) 0.00 - 0.04 x10(3)/[facility] LABORATORY Specimen Anatomical Collection Method Collection Time Receive d Time (Source) Location / / Volume Laterality Blood 06/02/2022 8:20 AM 8:25 EDT AM EDT Resulting Agency Comment Spec In Lab Kurt Ames MD HEMATOLOGY ORDERABLES Performing Organization Address City/State/ZIP [place] [address] (ABNORMAL) Hemogram (06/02/2022 8:20 AM EDT) Analysis Performed At Patho logist Time Signature WBC 7.2 4.0 - 9.5 [facility] x10(3)/[facility] LABORATORY RBC 2.74 (L) 4.58 - [facility] 5.54 [facility] x10(6)/[facility] LABORATORY Hemoglobin 8.7 (L) 13.7 - [facility] 16.5 g/dL [facility] LABORATORY Hematocrit 25.7 (L) 40.5 - [facility] [place] 48.5 % [facility] LABORATORY MCV 93.8 (H) 82.9 - [facility] 93.1 [facility] LABORATORY MCH 31.8 27.5 - [place] 32.1 pg [facility] LABORATORY MCHC 33.9 32.0 - [place] 35.7 g/dL [facility] LABORATORY Platelets 260 145 - 357 [facility] x10(3)/[facility] LABORATORY RDWSD 51.0 (H) 36.0 - [place] 45.0 [facility] LABORATORY RDWCV 14.9 (H) 11.4 - [facility] 13.8 % [facility] LABORATORY MPV 10.0 7.6 - 12.9 [facility] LABORATORY nRBC % Auto 0.0 % [facility] LABORATORY nRBC Abs Auto 0.000 0.000 - [facility] 0.000 [facility] x10(3)/[facility] LABORATORY Specimen Anatomical Collection Method Collection Time Receive d Time (Source) Location / / Volume Laterality Blood 06/02/2022 8:20 AM 8:25 EDT AM EDT Resulting Agency Comment Spec In Lab Kurt Ames MD HEMATOLOGY ORDERABLES Performing Organization Address City/State/ZIP [place] [address] Heparin (unfractionated) Level (06/02/2022 [...] Victor MD HEMATOLOGY ORDERABLES Performing Organization Address City/[facility]/ZIP Code Phon e Number [address] Heparin (unfractionated) Level [...] Victor MD HEMATOLOGY ORDERABLES Performing Organization Address City/[facility]/[place] [address] Magnesium (06/02/2022 12:30 AM EDT) P athologist Signature Magnesium 0.83 0.69 - 1.07 [facility] mmol/L [facility] LABORATORY Specimen Anatomical Collection Method Collection Time Receive d Time (Source) Location / / Volume Laterality Blood 06/02/2022 12:30 06/02/2022 AM EDT 12:40 AM EDT Resulting Agency Comment Spec In Lab Mahendra Victor MD CHEMISTRY ORDERABLES Performing Organization Address City/State/ZIP [place] [address] (ABNORMAL) Basic Metabolic Panel (non-fasting) (06/02/2022 12:30 AM EDT) P athologist Signature Glucose Lvl 151 65 - 199 [facility] mg/dL [facility] LABORATORY Comment: Diabetes: >=200 mg/dL plus [...] Organization Address City/State/ZIP [place] [address] (ABNORMAL) Differential, Automated (06/01/2022 7:29 PM EDT) athologist Signature Neutrophils % 68.8 % [facility] LABORATORY Neutr Abs (ANC) 5.34 1.70 - [facility] 6.10 [facility] x10(3)/[facility] LABORATORY Lymphocytes % 19.6 % [facility] LABORATORY Lymphocytes Abs 1.5 0.9 - 3.2 [facility] x10(3)/[facility] LABORATORY Monocytes % 8.1 % [facility] LABORATORY Monocyte Abs 0.6 0.3 - 0.9 [facility] x10(3)/[facility] LABORATORY Eosinophils % 1.8 % [facility] LABORATORY Eosinophils Abs 0.1 0.0 - 0.4 [facility] x10(3)/[facility] LABORATORY Basophils % 0.8 % [facility] LABORATORY Basophils Abs 0.1 0.0 - 0.1 [facility] x10(3)/[facility] LABORATORY Immature Gran % 0.90 % [facility] [...] Abs 0.07 (H) 0.00 - 0.04 x10(3)/[facility] LABORATORY Specimen Anatomical Collection Method Collection Time Receive d Time (Source) Location / / Volume Laterality Blood 06/01/2022 7:29 PM 2 7:29 EDT PM EDT Resulting Agency Comment Spec In Lab Kurt Ames MD HEMATOLOGY ORDERABLES Performing Organization Address City/State/[place] [address] (ABNORMAL) Hemogram (06/01/2022 7:29 PM EDT) Analysis Performed At Patho logist Time Signature WBC 7.8 4.0 - 9.5 [facility](3[facility] LABORATORY RBC 2.65 (L) 4.58 - [facility] 5.54 [facility] x10(6)/[facility] LABORATORY Hemoglobin 8.3 (L) 13.7 - [facility] 16.[facility] g/dL [facility] LABORATORY Hematocrit 24.8 (L) 40.5 - [facility] 48.5 % [facility] LABORATORY MCV 93.6 (H) 82.9 - [facility] 93.1 [facility] LABORATORY MCH 31.3 27.5 - [facility] 32.1 pg [facility] LABORATORY MCHC 33.5 32.0 - [facility] 35.7 g/dL [facility] LABORATORY Platelets 263 145 - 357 [facility] x10(3)/[facility] LABORATORY RDWSD 52.8 (H) 36.0 - [facility] 45.0 [facility] LABORATORY RDWCV 15.4 (H) 11.4 - [facility] 13.8 % [facility] LABORATORY MPV 10.4 7.6 - 12.9 [facility] nRBC % Auto 0.0 % [facility] LABORATORY nRBC Abs Auto 0.000 0.000 - [facility] 0.000 [facility] x10(3)/[facility] LABORATORY Specimen Anatomical Collection Method Collection Time Receive d Time (Source) Location / / Volume Laterality Blood 06/01/2022 7:29 PM 2 7:29 EDT PM EDT Resulting Agency Comment Spec In Lab Kurt Ames MD HEMATOLOGY ORDERABLES Performing Organization Address City/State/ZIP Code Phon e Number [address] Heparin (unfractionated) Level (06/01/2022 [...] Organization Address City/State/ZIP Code Phon e Number [address] (ABNORMAL) Heparin (unfractionated) Level (06/01/2022 11:32 AM EDT) Patholo gist Method Time Signature Heparin UFH 1.05 IU/mL [facility] (Critical) [facility] LABORATORY Comment: Critical Result called by [...] Organization Address City/State/ZIP [place] [address] (ABNORMAL) Differential, Automated (06/01/2022 5:56 AM EDT) [facility] Method Time Signature Neutrophils % 62.7 % [facility] LABORATORY Neutr Abs (ANC) 6.11 (H) 1.70 - [facility] 6.10 [facility] x10(3)/[facility] LABORATORY Lymphocytes % 23.5 % [facility] LABORATORY Lymphocytes Abs 2.3 0.9 - 3.2 [facility] x10(3)/[facility] LABORATORY Monocytes % 10.0 % [facility] LABORATORY Monocyte Abs 1.0 (H) 0.3 - 0.9 [facility] x10(3)/[facility] LABORATORY Eosinophils % 2.2 % [facility] LABORATORY Eosinophils Abs 0.2 0.0 - 0.4 [facility] x10(3)/[facility] LABORATORY Basophils % 0.9 % [facility] LABORATORY Basophils Abs 0.1 0.0 - 0.1 [facility] x10(3)/[facility] LABORATORY Immature Gran % 0.70 % [facility] [...] Abs 0.07 (H) 0.00 - 0.04 x10(3)/[facility] LABORATORY Specimen Anatomical Collection Method Collection Time Receive d Time (Source) Location / / Volume Laterality Blood 06/01/2022 5:56 AM 2 6:05 EDT AM EDT Resulting Agency Comment Spec In Lab Arpita Valle MD HEMATOLOGY ORDERABLES Performing Organization Address City/State/ZIP [place] [address] (ABNORMAL) Hemogram (06/01/2022 5:56 AM EDT) Analysis Performed At Patho logist Time Signature WBC 9.7 (H) 4.0 - 9.5 [facility] x10(3)/[facility] LABORATORY RBC 2.83 (L) 4.58 - [facility] 5.54 [facility] x10(6)/[facility] LABORATORY Hemoglobin 9.0 (L) 13.7 - [facility] 16.5 g/dL [facility] LABORATORY Hematocrit 26.7 (L) 40.5 - [facility] 48.5 % [facility] LABORATORY MCV 94.3 (H) 82.9 - [facility] 93.1 [facility] LABORATORY MCH 31.8 27.5 - [facility] 32.1 pg [facility] LABORATORY MCHC 33.7 32.0 - [facility] 35.7 g/dL [facility] LABORATORY Platelets 250 145 - 357 [facility] x10(3)/[facility] LABORATORY RDWSD 54.3 (H) 36.0 - [facility] 45.0 [facility] LABORATORY RDWCV 15.9 (H) 11.4 - [facility] 13.8 % [facility] LABORATORY MPV 10.5 7.6 - 12.9 [facility] LABORATORY nRBC % Auto 0.0 % [facility] LABORATORY nRBC Abs Auto 0.000 0.000 - [facility] 0.000 [facility] x10(3)/[facility] LABORATORY Specimen Anatomical Collection Method Collection Time Receive d Time (Source) Location / / Volume Laterality Blood 06/01/2022 5:56 AM 2 6:05 EDT AM EDT Resulting Agency Comment Spec In Lab Arpita Valle MD HEMATOLOGY ORDERABLES Performing Organization Address City/State/[place] [address] Heparin (unfractionated) Level (06/01/2022 [...] Victor MD HEMATOLOGY ORDERABLES Performing Organization Address City/[facility]/[place] [address] (ABNORMAL) Urinalysis with reflex Culture (06/01/2022 4:00 AM EDT) Patholo gist Method Time Signature Glucose UA 500 Negative [facility] (Critical) mg/dL [facility] LABORATORY Comment: Urinalysis result NOT critical without a combination of Glucose greater than or equal to 500 mg/dL AND Ketones greate r than or equal to 80 mg/dL Protein UA Negative Negative mg/dL [facility] LABORATORY Bilirubin UA Negative Negative mg/dL [facility] [...] 8.0 [facility] LABORATORY Blood UA Negative Negative mg/dL [facility] LABORATORY Ketones UA Negative Negative mg/dL [facility] LABORATORY Nitrite UA Negative Negative [facility] Leukocytes UA Negative Negative [facility] Appearance UA Clear Clear [facility] Spec [place] UA >=1.030 (A) 1.005 - 1.030 [facility] Color UA Yellow Yellow [facility] Culture Reflexed No [facility] Specimen Anatomical Collection Method Collection Time Receive d Time (Source) Location / / Volume Laterality Clean Catch 06/01/2022 4:00 AM 2 4:26 Urine EDT AM EDT Resulting Agency Comment Spec In Lab Mahendra Victor MD URINE ORDERABLES Performing Organization Address City/[facility]/ZIP Code Phon e Number [address] Magnesium (06/01/2022 1:00 AM EDT) athologist Signature Magnesium 0.93 0.69 - 1.07 [facility] mmol/L [facility] Specimen Anatomical Collection Method Collection Time Receive d Time (Source) Location / / Volume Laterality Blood 06/01/2022 1:00 AM 2 1:37 EDT AM EDT Resulting Agency Comment Spec In Lab Mahendra Victor MD CHEMISTRY ORDERABLES Performing Organization Address City/[facility] Phon e Number [address] (ABNORMAL) Basic Metabolic Panel (non-fasting) (06/01/2022 1:00 AM EDT) athologist Signature Glucose Lvl 148 65 - 199 [facility] mg/dL [facility] Comment: Diabetes: >=200 mg/dL plus [...] Organization Address City/State/ZIP [place] [address] (ABNORMAL) Differential, Automated (06/01/2022 12:00 AM EDT) P athologist Signature Neutrophils % 64.6 % [facility] Neutr Abs (ANC) 5.60 1.70 - [facility] 6.10 [facility] x10(3)/[facility] LABORATORY Lymphocytes % 22.4 % [facility] Lymphocytes Abs 1.9 0.9 - 3.2 [facility] x10(3)/[facility] LABORATORY Monocytes % 9.5 % [facility] Monocyte Abs 0.8 0.3 - 0.9 [facility] x10(3)/[facility] LABORATORY Eosinophils % 2.1 % [facility] Eosinophils Abs 0.2 0.0 - 0.4 [facility] x10(3)/[facility] LABORATORY Basophils % 0.6 % [facility] Basophils Abs 0.0 0.0 - 0.1 [facility] x10(3)/[facility] LABORATORY Immature Gran % 0.80 % [facility] [...] Abs 0.07 (H) 0.00 - 0.04 x10(3)/[facility] LABORATORY Specimen (Source) Anatomical Collection Method Collection Time Re ceived Time Location / / Volume Laterality Blood 06/01/2022 06/01/2022 12:1 0 AM EDT Resulting Agency Comment Spec In Lab Arpita Valle MD HEMATOLOGY ORDERABLES Performing Organization Address City/State/ZIP [place] [address] (ABNORMAL) Hemogram (06/01/2022 12:00 AM EDT) Analysis Performed At Patho logist Time Signature WBC 8.7 4.0 - 9.5 [facility] x10(3)/[facility] LABORATORY RBC 2.77 (L) 4.58 - [facility] 5.54 [facility] x10(6)/[facility] LABORATORY Hemoglobin 8.6 (L) 13.7 - [facility] 16.5 g/dL [facility] Hematocrit 25.7 (L) 40.5 - [facility] 48.5 % [facility] MCV 92.8 82.9 - [facility] 93.1 [facility] LABORATORY MCH 31.0 27.5 - [facility] 32.1 pg [facility] MCHC 33.5 32.0 - [facility] 35.7 g/dL [facility] Platelets 260 145 - 357 [facility] x10(3)/[facility] LABORATORY RDWSD 51.9 (H) 36.0 - [facility] 45.0 [facility] LABORATORY RDWCV 15.5 (H) 11.4 - [facility] 13.8 % [facility] MPV 10.4 7.6 - 12.9 [facility] LABORATORY nRBC % Auto 0.0 % [facility] nRBC Abs Auto 0.000 0.000 - [facility] 0.000 [facility] x10(3)/[facility] LABORATORY Specimen (Source) Anatomical Collection Method Collection Time Re ceived Time Location / / Volume Laterality Blood 06/01/2022 06/01/2022 12:1 0 AM EDT Resulting Agency Comment Spec In Lab Arpita Valle MD HEMATOLOGY ORDERABLES Performing Organization Address City/State/ZIP [place] [address] (ABNORMAL) Differential, Automated (05/31/2022 9:17 PM EDT) P athologist Signature Neutrophils % 59.6 % [facility] Neutr Abs (ANC) 3.98 1.70 - [facility] 6.10 [facility] x10(3)/[facility] LABORATORY Lymphocytes % 27.5 % [facility] Lymphocytes Abs 1.8 0.9 - 3.2 [facility] x10(3)/[facility] LABORATORY Monocytes % 9.1 % [facility] Monocyte Abs 0.6 0.3 - 0.9 [facility] x10(3)/[facility] LABORATORY Eosinophils % 2.4 % [facility] Eosinophils Abs 0.2 0.0 - 0.4 [facility] x10(3)/[facility] LABORATORY Basophils % 0.7 % [facility] Basophils Abs 0.0 0.0 - 0.1 [facility] x10(3)/[facility] LABORATORY Immature Gran % 0.70 % [facility] [...] Abs 0.05 (H) 0.00 - 0.04 x10(3)/[facility] LABORATORY Specimen Anatomical Collection Method Collection Time Receive d Time (Source) Location / / Volume Laterality Blood 05/31/2022 9:17 PM 9:25 EDT PM EDT Resulting Agency Comment Spec In Lab Arpita Valle MD HEMATOLOGY ORDERABLES Performing Organization Address City/State/ZIP [place] [address] (ABNORMAL) Hemogram (05/31/2022 9:17 PM EDT) Analysis Performed At Patho logist Time Signature WBC 6.7 4.0 - 9.5 [facility] x10(3)/[facility] LABORATORY RBC 2.74 (L) 4.58 - [facility] 5.54 [facility] x10(6)/[facility] LABORATORY Hemoglobin 8.5 (L) 13.7 - [facility] 16.5 g/dL [facility] Hematocrit 25.7 (L) 40.5 - [facility] 48.5 % [facility] MCV 93.8 (H) 82.9 - [facility] 93.1 fL [facility] MCH 31.0 27.5 - [facility] 32.1 pg [facility] MCHC 33.1 32.0 - [facility] 35.7 g/dL [facility] Platelets 233 145 - 357 [facility] x10(3)/[facility] LABORATORY RDWSD 51.9 (H) 36.0 - [facility] 45.0 [facility] RDWCV 15.3 (H) 11.4 - [facility] 13.8 % [facility] MPV 10.3 7.6 - 12.9 [facility] LABORATORY nRBC % Auto 0.0 % [facility] nRBC Abs Auto 0.000 0.000 - [facility] 0.000 [facility] x10(3)/[facility] LABORATORY Specimen Anatomical Collection Method Collection Time Receive d Time (Source) Location / / Volume Laterality Blood 05/31/2022 9:17 PM 9:25 EDT PM EDT Resulting Agency Comment Spec In Lab Arpita Valle MD HEMATOLOGY ORDERABLES Performing Organization Address City/State/ZIP [place] [address] Transfuse RBC (05/31/2022 7:36 PM EDT) Regina Hinds MD NURSING TREATMENT ORDERABLES - BLOOD ADMIN Transfuse RBC (05/31/2022 7:36 PM EDT) Regina Hinds MD NURSING TREATMENT ORDERABLES - BLOOD ADMIN UPPER GI ENDOSCOPY (05/31/2022 3:37 PM EDT) Component Value Ref Test Analysis Performed At [facility] Range Method Time Signature UPPER GI [facility] PROVATION ENDOSCOPY Endoscopy Procedure Date: 05/31/2022 3:37 PM ? Patient Name: Koko Zamora ? Date of : 1940 ? Age: 81 ? Order #: [id number] ? Instrument Name: [id number] ? Procedure: ? Upper GI endoscopy Indications: [...] Procedure Code(s): ? --- Professional --- ? 30174, Esophagogastroduode noscopy, ? flexible, transoral; with control [...] stomach ? and duodenum CPT copyright 2021 [employer] [employer]. All rights reserved. The codes documented in this report are preliminary and upon weight and balance control agent review may be revised to meet current [...] have questions please contact the health rn home care that requested your imaging first. ? Narrative 05/31/2022 2:39 PM EDT EXAMINATION: CT ABDOMEN AND PELVIS WWO CONTRAST (GI BLEED) CLINICAL HISTORY: Significant Hb drop. U nknown source. has had a [facility] with stent placed and revascularization [...] enlarged lymph nodes. Vasculature: Patent common iliac, it analyst al iliac, and common femoral arteries bilaterally. [...] enlarged lymph nodes. Vasculature: Patent common iliac, it analyst al iliac, and common femoral arteries bilaterally. [...] have questions please contact the health rn home care that requested your imaging first. Regina Hinds MD G CT ORDERABLES Type and Screen Validity (05/31/2022 1:43 PM EDT) [facility] gist Method Time Signature T&S only valid [facility] Comment: This Type and Screen [...] Organization Address City/State/ZIP [place] [address] ABORH Recheck Status (05/31/2022 1:43 PM EDT) [facility] Method Time Signature ABORH Type Completed [facility] LABORATORY Specimen Anatomical Collection Method Collection Time Receive d Time (Source) Location / / Volume Laterality Blood 05/31/2022 1:43 PM 2 1:57 EDT PM EDT Resulting Agency Comment Spec In Lab Regina Hinds MD BLOOD BANK ORDERABLES Performing Organization Address City/[facility]/ZIP [place] [address] Antibody screen (05/31/2022 1:43 PM EDT) [facility] Signature Ab Screen Negative [facility] LABORATORY Expires at 06/03/2022 [facility] [id number] on: [facility] Specimen Anatomical Collection Method Collection Time Receive d Time (Source) Location / / Volume Laterality Blood 05/31/2022 1:43 PM 2 1:57 EDT PM EDT Resulting Agency Comment Spec In Lab Regina Hinds MD BLOOD BANK ORDERABLES Performing Organization Address City/[facility]/ZIP [place] [address] ABO/Rh Typing (05/31/2022 1:43 PM EDT) P athologist Signature ABORh Type O Pos [facility] Specimen Anatomical Collection Method Collection Time Receive d Time (Source) Location / / Volume Laterality Blood 05/31/2022 1:43 PM 2 1:57 EDT PM EDT Resulting Agency Comment Spec In Lab Regina Hinds MD BLOOD BANK ORDERABLES Performing Organization Address City/[facility]/ZIP [place] [address] Prepare RBC (05/31/2022 1:35 PM EDT) P athologist Signature Dispensed? Yes [facility] Specimen Anatomical Collection Method Collection Time Receive d Time (Source) Location / / Volume Laterality Blood 05/31/2022 1:35 PM 2 1:30 EDT PM EDT Regina Hinds MD BLOOD BANK ORDERABLES Performing Organization Address City/[facility] [place] [address] Prepare RBC (05/31/2022 1:25 PM EDT) P athologist Signature Dispensed? Yes [facility] Specimen Anatomical Collection Method Collection Time Receive d Time (Source) Location / / Volume Laterality Blood 05/31/2022 1:25 PM 2 1:23 EDT PM EDT Regina Hinds MD BLOOD BANK ORDERABLES Performing Organization Address [facility] Phon e Number [address] (ABNORMAL) Differential, Automated (05/31/2022 12:44 PM EDT) P athologist Signature Neutrophils % 62.0 % [facility] Neutr Abs (ANC) 4.71 1.70 - [facility] 6.10 [facility] x10(3)/[facility] LABORATORY Lymphocytes % 24.1 % [facility] Lymphocytes Abs 1.8 0.9 - 3.2 [facility] x10(3)/[facility] LABORATORY Monocytes % 10.8 % [facility] Monocyte Abs 0.8 0.3 - 0.9 [facility] x10(3)/[facility] LABORATORY Eosinophils % 1.6 % [facility] Eosinophils Abs 0.1 0.0 - 0.4 [facility] x10(3)/[facility] LABORATORY Basophils % 0.7 % [facility] Basophils Abs 0.0 0.0 - 0.1 [facility] x10(3)/[facility] LABORATORY Immature Gran % 0.80 % [facility] [...] Abs 0.06 (H) 0.00 - 0.04 x10(3)/[facility] LABORATORY Specimen Anatomical Collection Method Collection Time Receive d Time (Source) Location / / Volume Laterality Blood 05/31/2022 12:44 05/31/2022 PM EDT 12:57 PM EDT Resulting Agency Comment Spec In Lab Brittany Ramirez MD HEMATOLOGY ORDERABLES Performing Organization Address City/State/ZIP [place] [address] (ABNORMAL) Hemogram (05/31/2022 12:44 PM EDT) Analysis Performed At Patho logist Time Signature WBC 7.6 4.0 - 9.5 [facility] x10(3)/[facility] LABORATORY RBC 2.11 (L) 4.58 - [facility] 5.54 [facility] x10(6)/[facility] LABORATORY Hemoglobin 6.9 (L) 13.7 - [facility] 16.5 g/dL [facility] Hematocrit 20.8 (L) 40.5 - [facility] 48.5 % [facility] MCV 98.6 (H) 82.9 - [facility] 93.1 [facility] LABORATORY MCH 32.7 (H) 27.5 - [facility] 32.1 pg [facility] MCHC 33.2 32.0 - [facility] 35.7 g/dL [facility] Platelets 255 145 - 357 [facility] x10(3)/[facility] LABORATORY RDWSD 47.7 (H) 36.0 - [facility] 45.0 [facility] LABORATORY RDWCV 13.4 11.4 - [facility] 13.8 % [facility] MPV 10.7 7.6 - 12.9 [facility] LABORATORY nRBC % Auto 0.0 % [facility] nRBC Abs Auto 0.000 0.000 - [facility] 0.000 [facility] x10(3)/[facility] LABORATORY Specimen Anatomical Collection Method Collection Time Receive d Time (Source) Location / / Volume Laterality Blood 05/31/2022 12:44 05/31/2022 PM EDT 12:57 PM EDT Resulting Agency Comment Spec In Lab Brittany Ramirez MD HEMATOLOGY ORDERABLES Performing Organization Address City/State/ZIP [place] [address] (ABNORMAL) BLOOD GAS 2 VENOUS (05/31/2022 11:24 AM EDT) P athologist Signature pH [place] 7.38 7.32 - [facility] 7.42 [facility] pCO2 [place] 40 (L) 41 - 51 [facility] LABORATORY pO2 [place] 18 (L) 25 - 40 [facility] LABORATORY HCO3 [place] 23.3 mmol/L [facility] BE Marco [place] -1.8 mmol/L [facility] Hgb Blood Gas 7.0 (L) 13.7 - [facility] 16.5 g/dL [facility] O2HB [place] 24.3 % [facility] COHB [place] 1.4 % [facility] Comment: Nonsmokers: 0.5-1.5% COHB Smokers: Variable, but usually less than 10% Toxic: 20-30% COHB Lethal: Greater than 60% COHB METHB [place] 1.7 (H) <=1.5 % [facility] Na Whole Blood 137 135 - 145 mmol/L [facility] K Whole Blood 3.9 3.5 - 5.0 mmol/L [facility] [...] Whole Blood 107 98 - 107 mmol/L [facility] Gluc Whole Bld 204 (H) 65 - 199 mg/dL [facility] Comment: Diabetes: >=200 mg/dL plus symp toms Lactate WB 1.4 0.5 - 2.2 mmol/L [facility] BGas Source Venous [facility] Specimen Anatomical Collection Method Collection Time Receive d Time (Source) Location / / Volume Laterality Blood 05/31/2022 11:24 05/31/2022 AM EDT 11:24 AM EDT Regina Hinds MD CHEMISTRY ORDERABLES Performing Organization Address City/[facility]/ZIP Code Phon e Number [address] TSH [place] (05/31/2022 11:20 AM EDT) P athologist Signature TSH 1.67 0.27 - 4.20 [facility] mcIU/mL [facility] Comment: Reference Interval (mcIU/mL): Females: ??First Trimester: 0.23-3.88 ??Second Trimester: 0.22-3.90 ??Third Trimester: 0.44-4.66 Specimen Anatomical Collection Method Collection Time Receive d Time (Source) Location / / Volume Laterality Blood 05/31/2022 11:20 05/31/2022 AM EDT 11:28 AM EDT Resulting Agency Comment Spec In Lab Regina Hinds MD CHEMISTRY ORDERABLES Performing Organization Address City/[facility]/ZIP Code Phon e Number [address] XR Chest PA [...] have questions please contact the health rn home care that requested your imaging first. ? Electronically signed by: Alan strong MD, [facility] ([phone]), at 05/31/2022 11:33 AM Narrative 05/31/2022 11:33 AM EDT EXAMINATION: XR CHEST PA AND LATERAL (GENERIC) CLINICAL HISTORY: CHAMBERS, Fatigue. HFrEF, r ecent LHC with stent placed. ?pulmonary edema TECHNIQUE: PA and lateral views of the chest, 2 mairta ges COMPARISON: Chest radiograph 05/16/2022 FINDINGS: There [...] have questions please contact the health rn home care that requested your imaging first. Electronically signed by: Alan strong MD, [facility] ([phone]), at 05/31/2022 11:33 AM Regina Hinds MD IMG DX ORDERABLES Lipase (05/31/2022 10:50 AM EDT) athologist Signature Lipase 41 0 - 60 [facility] unit/L [facility] Specimen Anatomical Collection Method Collection Time Receive d Time (Source) Location / / Volume Laterality Blood Venous Draw / 05/31/2022 10:50 05/31/2022 Unknown AM EDT 11:11 AM EDT Resulting Agency Comment Spec In Lab Zain Champion MD CHEMISTRY ORDERABLES Performing Organization Address City/State/ZIP Code Phon e Number [place] [id number] HOSPITAL LABORATORY Drive (ABNORMAL) Hepatic Function Panel (05/31/2022 10:50 AM EDT) Analysis Performed At Patho logist Time Signature Total Protein 6.4 6.1 - 8.0 [facility] g/dL [facility] Albumin 4.1 3.2 - 5.2 [facility] g/dL [facility] AST 24 0 - 39 [facility] unit/L [facility] ALT 44 0 - 55 [facility] unit/L [facility] Alk Phos 63 40 - 130 [facility] unit/L [facility] Total <0.2 (L) 0.2 - 1.3 [facility] Bilirubin mg/dL [facility] Bili, Direct 0.1 0.0 - 0.3 [facility] mg/dL [facility] Specimen Anatomical Collection Method Collection Time Receive d Time (Source) Location / / Volume Laterality Blood Venous Draw / 05/31/2022 10:50 05/31/2022 Unknown AM EDT 11:11 AM EDT Resulting Agency Comment Spec In Lab Zain Champion MD CHEMISTRY ORDERABLES Performing Organization Address City/[facility]/ZIP Code Phon e Number [address] Blue Tube HOLD (05/31/2022 10:50 AM EDT) athologist Signature Blue Hold Sample in [facility] LABORATORY Specimen Anatomical Collection Method Collection Time Receive d Time (Source) Location / / Volume Laterality Blood Venous Draw / 05/31/2022 10:50 05/31/2022 Unknown AM EDT 11:05 AM EDT Brittany Ramirez MD HEMATOLOGY ORDERABLES Performing Organization Address City/[facility]/ZIP Code Phon e Number [address] (ABNORMAL) Differential, Automated (05/31/2022 10:50 AM EDT) athologist Signature Neutrophils % 66.9 % [facility] Neutr Abs (ANC) 5.58 1.70 - [facility] 6.10 [facility] x10(3)/[facility] LABORATORY Lymphocytes % 22.2 % [facility] Lymphocytes Abs 1.8 0.9 - 3.2 [facility] x10(3)/[facility] LABORATORY Monocytes % 7.8 % [facility] Monocyte Abs 0.6 0.3 - 0.9 [facility] x10(3)/[facility] LABORATORY Eosinophils % 1.2 % [facility] Eosinophils Abs 0.1 0.0 - 0.4 [facility] x10(3)/[facility] LABORATORY Basophils % 0.7 % [facility] Basophils Abs 0.1 0.0 - 0.1 [facility] x10(3)/[facility] LABORATORY Immature Gran % 1.20 % [facility] [...] Abs 0.10 (H) 0.00 - 0.04 x10(3)/[facility] LABORATORY Specimen Anatomical Collection Method Collection Time Receive d Time (Source) Location / / Volume Laterality Blood 05/31/2022 10:50 05/31/2022 AM EDT 11:03 AM EDT Resulting Agency Comment Spec In Lab Brittany Ramirez MD HEMATOLOGY ORDERABLES Performing Organization Address City/State/ZIP [place] [address] (ABNORMAL) Hemogram (05/31/2022 10:50 AM EDT) Analysis Performed At Patho logist Time Signature WBC 8.3 4.0 - 9.5 [facility] x10(3)/[facility] LABORATORY RBC 2.26 (L) 4.58 - [facility] 5.54 [facility] x10(6)/[facility] LABORATORY Hemoglobin 7.4 (L) 13.7 - [facility] 16.5 g/dL [facility] Hematocrit 22.3 (L) 40.5 - [facility] 48.5 % [facility] MCV 98.7 (H) 82.9 - [facility] 93.1 [facility] LABORATORY MCH 32.7 (H) 27.5 - [facility] 32.1 pg [facility] MCHC 33.2 32.0 - [facility] 35.7 g/dL [facility] Platelets 283 145 - 357 [facility] x10(3)/[facility] LABORATORY RDWSD 47.0 (H) 36.0 - [facility] 45.0 [facility] LABORATORY RDWCV 13.4 11.4 - [facility] 13.8 % [facility] MPV 10.8 7.6 - 12.9 [facility] LABORATORY nRBC % Auto 0.0 % [facility] nRBC Abs Auto 0.000 0.000 - [facility] 0.000 [facility] x10(3)/[facility] LABORATORY Specimen Anatomical Collection Method Collection Time Receive d Time (Source) Location / / Volume Laterality Blood 05/31/2022 10:50 05/31/2022 AM EDT 11:03 AM EDT Resulting Agency Comment Spec In Lab Brittany Ramirez MD HEMATOLOGY ORDERABLES Performing Organization Address City/State/ZIP Code Phon e Number [address] Phosphorus (05/31/2022 10:50 AM EDT) P athologist Signature Phosphorus 3.2 2.5 - 4.5 [facility] [place] mg/dL [facility] Specimen Anatomical Collection Method Collection Time Receive d Time (Source) Location / / Volume Laterality Blood 05/31/2022 10:50 05/31/2022 AM EDT 11:03 AM EDT Resulting Agency Comment Spec In Lab Regina Hinds MD CHEMISTRY ORDERABLES Performing Organization Address City/State/ZIP Code Phon e Number [address] Magnesium (05/31/2022 10:50 AM EDT) P athologist Signature Magnesium 0.93 0.69 - 1.07 [place] mmol/L [facility] Specimen Anatomical Collection Method Collection Time Receive d Time (Source) Location / / Volume Laterality Blood 05/31/2022 10:50 05/31/2022 AM EDT 11:03 AM EDT Resulting Agency Comment Spec In Lab Regina Hinds MD CHEMISTRY ORDERABLES Performing Organization Address City/State/[place] [address] (ABNORMAL) pro-Brain Natriuretic Peptide (05/31/2022 10:50 AM EDT) P athologist Signature ProBNP 1,077 (H) <=449 [place] pg/mL [facility] Specimen Anatomical Collection Method Collection Time Receive d Time (Source) Location / / Volume Laterality Blood 05/31/2022 10:50 05/31/2022 AM EDT 11:03 AM EDT Resulting Agency Comment Spec In Lab Regina Hinds MD CHEMISTRY ORDERABLES Performing Organization Address City/[facility]/[place] [address] Troponin (05/31/2022 10:50 AM EDT) athologist Signature Troponin-T <0.01 0.00 - 0.00 [facility] ng/mL [facility] Comment: The 99th percentile for Troponin T is le ss than 0.01 ng/mL, any detectable cTnT concentration using this assay should be considered elevated. According to the third universal definit ion of myocardial infarction the following criteria with a clinical prese ntation consistent with acute myocardial ischemia meets the diagnosis for a myocardial infarction (HI). Detection of a rise and/or fall of [...] additional sample may be indicated. Reference: Third [place] Definition of Myocardial Infarction. Journal of the [place] [employer] 2012;60:1581-98 Specimen Anatomical Collection Method Collection Time Receive d Time (Source) Location / / Volume Laterality Blood 05/31/2022 10:50 05/31/2022 AM EDT 11:03 AM EDT Resulting Agency Comment Spec In Lab Regina Hinds MD CHEMISTRY ORDERABLES Performing Organization Address City/[facility]/[place] [address] (ABNORMAL) Basic Metabolic Panel (non-fasting) (05/31/2022 10:50 AM EDT) athologist Signature Glucose Lvl 223 (H) 65 - 199 [facility] mg/dL [facility] Comment: Diabetes: >=200 mg/dL plus [...] Organization Address City/State/ZIP [place] [address] EKG 12 Lead (05/31/2022 10:11 AM EDT) Component Value Ref Range Test Analysis Performed Pathologis t Method Time At Signature Ventricular rate 106 BPM MUSE SYSTEM QRS Duration 122 ms MUSE SYSTEM Q-T Interval 368 ms MUSE SYSTEM QTC Calculated 488 ms MUSE SYSTEM (Bezet) Calculated R [place] -43 degrees MUSE SYSTEM Calculated T [place] 109 degrees MUSE SYSTEM INTERPRETATION Atrial fibrillation [...] erpretation Confirmed by fellow MD Mike, [place] ([id number]) on 022 8:36:21 PM Confirmed by MD [...] PROTOCOL, Starting on Fri05/31/22 at 2013, Until [place] 06/02/22 at 1702, Per Pro tocol, START [...] CONTINUOUS, Starting on Fri05/31/22 at 2015, Until [place] 06/02/22 at 1702, Begin infusion at 950 [...] (Lidoderm) 5% patch 2 patch(Linked Group 1) 0800 (Patch Applied - Provider: Raven Barbour RN [...] RN)0710 (New Bag - Provider: Raven Barbour RN)4238 (Stopped - Provider: Maranda Ribeiro RN) 0-5,000 [...] - Less than 0.1 international unit/mL: Ad machine steak tenderizer 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
Routine documented in this encounter Care Teams Propulsion Engineer Relationship Specialty Start Date End Date Bobby Das MD PCP - General 10/02/[address] [place] [address] [place] [id number] documented as of this encounter
--- OUTSIDE RECORDS SUMMARY | 2022-07-31 09:00 | XMS_ITS | Encounter Summary ---
:1940 [place] [address] Care Team Providers Name Role Phone Bobby Das MD Primary Care Provider Reason for Referral Diagnostic Test (Routine) - Closed Specialty Diagnoses / Procedures Referred By Contact Refer red To Contact Cardiology Diagnoses Paroxysmal atrial fibrillation Nasrin Parra PA [facility] Non-Inv Card Lab Procedures Ziopatch 48 Hrs-15 Days [facility] VASCULAR SURGERY [place], [place] [id number] [place] [phone] Fax: Referral ID Status Reason Start Date Expiration Date Visits V isits Requested Authorized [id number] Closed Specialty 05/21/2022 10/21/2022 1 1 Service Requested Reason for Visit Auth/Cert Specialty Diagnoses / Procedures Referred By Contact Refer red To Contact Diagnoses Limb ischemia LLE thrombus Fito Summers MD [facility] [place] [address] Referral ID Status Reason Start Date Expiration Date Visits Requ ested Visits Authorized [id number] 1 1 Encounter Details Date Type Department Care Team Description 05/21/2022 Hospital Encounter Non-Invasive Paroxysma l atrial [place] [phone] Social History Tobacco Use Types Packs/Day [...] 04/12/20 21 (FLONASE) 50 mcg/actuation Nare route [place], Suspension daily as needed. fluorouraciL (EFUDEX) 5 [...] [facility] DR GASTROENTEROLOGY DEPT [place], [place] [address] (Wo rk) 09/05/2022 Appointment Cardiology Trinity Reid MD [facility] CARDIOLOGY [place], [place] [address] (Wo rk) 09/05/2022 Office Visit Cardiology Trinity Reid MD [facility] CARDIOLOGY [place], [place] [address] (Wo rk) documented as of [...] fibrillation documented in this encounter Care Teams Chrome Cleaner Relationship Specialty Start Date End Date Bobby Das MD PCP - General 10/02/[address] [place] [address] [place] [phone] documented as of this encounter
--- OUTSIDE RECORDS SUMMARY | 2022-07-31 09:00 | XMS_ITS | Encounter Summary ---
:1940 Author Organization [facility] [place] [address] Care Team Providers Name Role Phone Bobby Das MD Primary Care Provider Reason for Referral Consultation (Routine) - Authorized Specialty Diagnoses / Procedures Referred By Contact Refer red To Contact Diagnoses Non-ST elevation myocardial infarction (NSTEMI) Limb ischemia Nasrin Parra PA [facility] Tobacco Treatment [facility] [place] [address] [place] [address] Referral ID Status Reason Start Date Expiration Visits Visits Date Requested Authorized [id number] Authorized Consult, 05/21/2022 05/21/2023 1 1 Test & Treat iagnostic Test (Routine) - Closed Specialty Diagnoses / Procedures Referred By Contact Refer red To Contact Cardiology Diagnoses Paroxysmal atrial fibrillation Nasrin Parra PA [facility] Non-Inv Card Lab Procedures Ziopatch 48 Hrs-15 Days [facility] [place] [address] [place] [address] Fax: Referral ID Status Reason Start Date Expiration Date Visits V isits Requested Authorized [id number] Closed Specialty 05/21/2022 10/21/2022 1 1 Service Requested Consultation (Routine) - Closed Specialty Diagnoses / Procedures Referred By Contact Refer red To Contact Cardiology Diagnoses HFrEF (heart failure with reduced ejection fraction) Paroxysmal atrial fibrillation Post-hospital follow-up, s/p PCI with stenting, heart failure Nasrin Parra PA [facility] Cardiology [address] [facility] D R [facility] [place] [address] [place] [address] Referral ID Status Reason Start Date Expiration Date Visits V isits Requested Authorized [id number] Closed Consult, 05/21/2022 05/21/2023 1 1 Test & Treat iagnostic Test (Routine) - Authorized Specialty Diagnoses / Procedures Referred By Contact Refer red To Contact Diagnoses Limb ischemia Nasrin Parra PA [facility] Vascular Lab 3v Procedures JOSSELYN, legs, multiple levels [facility] [place] [address] [place] [address] Referral ID Status Reason Start Expiration Visits Visits Date Date Requested Authorized [id number] Authorized Specialty 05/21/2022 05/21/2023 1 1 Service Requested [facility] (Routine) - Authorized Specialty Diagnoses / Procedures Referred By Contact Refer red To Contact Diagnoses Limb ischemia Fito Summers MD [facility], [facility] VASCULAR SURGERY [address] [place] [address] [address] Fax: Referral ID Status Reason Start Date Expiration Visits Visits Date Requested Authorized [id number] Authorized Consult, 05/21/2022 11/17/2022 999 999 Test & Treat Reason for Visit Reason Comments Left Leg Pain Auth/Cert Specialty Diagnoses / Procedures Referred By Contact Refer red To Contact Diagnoses Limb ischemia LLE thrombus Fito Summers MD [facility] [place] [address] Referral ID Status Reason Start Date Expiration Date Visits Requ ested Visits Authorized [id number] 1 1 Encounter Details Date Type Department Care Team Description 05/15/2022 - Hospital Intermediate Cardiac Ravi Summers MD [facility] [place] [address] Atrial fibrillation, unspecified type; 05/21/2022 Encounter Care Unit Wellington Gerard MD [facility] [place] [address] Non-ST elevation myocardial infarction ( NSTEMI); [facility] Limb isch emia; [facility] HFrEF (heart failure with re duced ejection fraction); [facility] Paroxysma [place] [address] Social History Tobacco Use Types Packs/Day Years [...] onset Afib who presents in transfer from [facility] with acute limb ischemia of [...] emergently went to the OR for L ELECTRIC SHAVER MECHANIC transverse arteriotomy and primary repair, thromboembolectomy of L SFA/PFA/ELECTRIC SHAVER MECHANIC, reperfusion venous drainage for 250 cc, and [...] across the aortic valve is 13 mmHg. JVUENAL 1.2 cm2 S/P MV repair for prolapse. [...] Discharge Condition: Good Discharge to: Home with [address] [address] Future Appointments and Orders Future Appointments and Orders Future Appointments Provider Department Dept Phone 05/23/2022 10:30 AM Loretta Cohen MD Dermatology at [facility] Arrive at: [facility] [address] [place] [address] 06/07/2022 1:30 PM Gail Rae APRN Vascular Surgery at [facility] Arrive at: [facility] Area [phone] 06/13/2022 7:30 AM Edson Lagos [place] Vascular Lab at [facility] Arrive at: [facility] Area [phone] 06/13/2022 8:00 AM Fito Summers MD Vascular Surgery at [facility] Arrive at: [facility] Area [phone] 06/13/2022 10:00 AM Alan Reid MD Cardiology at [facility] Arrive at: [facility] Area [phone] Future Orders Complete By Expires Demetriusopatch 48 Hrs-15 Days [ZPN1452 CPT(R)] 05/21/2022 11/20/2022 Process Instructions: Scheduling Instructions: Comments: Questions: Does the patient have a pacemaker? If yes provide HI/LO settings: Apply for 7 or 14 days?: 7 Where will study be performed?: [facility] Clinics JOSSELYN, legs, multiple levels [VAS8 Custom] 06/21/2022 (Approximate) 12/21/2022 Process Instructions: There is no in-house vascular helper animal laboratory available on weeknights (5pm-8am), weekends, or holidays. IF THIS IS A REQUEST FOR AN EMERGENT STUDY DURING THOSE HOURS, please have the senior provider responsible for the patient page the Vascular Surgery Fellow/Senior Resident mental retardation aide to discuss options. Scheduling Instructions: Questions: Indication for study/signs & symptoms: ALI s/p L fem cutdown with thromboembolectomy Question to be answered: Perfusion to feet? Please check toe pressure Preferred location?: [facility] Clinics Referral to Cardiology [REF12 Custom] As [...] Zamora for admission to Home Health. [address] [facility] [address] (home) Date of : 1940 Inpatient DOCUMENTATION FOR VNA SERVICES (INCLUDING THOSE PATIENTS WITH MEDICARE COVERAGE REQUIRING HOME VNA SERVICES AND/OR HOSPICE SERVICES) PATIENT'S LOCATION: Koko Zamora [address] [facility] [phone] (home) Cell: No relevant phone numbers on file. Oxygen Tank Filler's Name: Koko In discussion with the attending physician, it is certified that this patient is under their care and that they, or a Nurse Practitioner,Clinical Nurse specialist or Physician Caramel Cutter Hand who is working directly with them, had [...] managing ADL's. HOME HEALTH CARE AGENCY: [facility] [address] [place] [address] Start of care: Within 24 to 48 [...] obtained from this patient'sPCP: Bobby Das MD [address] [place] [phone] All A agencies which cover the [...] For any problems or questions please call [phone] For issues on weeknights after 5pm and weekends please call [phone] and ask for the Vascular Fellow mental retardation aide. JOSEE Santiago Vascular Surgery 05/21/2022 documented in [...] For any problems or questions please call [phone] For issues on weeknights after 5pm and weekends please call [phone] and ask for the Vascular Fellow mental retardation aide. documented in this encounter Medications at Time [...] 04/12/20 21 (FLONASE) 50 mcg/actuation Nare route [place], Suspension daily as needed. fluorouraciL (EFUDEX) 5 [...] onset Afib who presents in transfer from [facility] with acute limb ischemia of [...] status, full code. JOSEE Santiago 05/21/2022 Pager: [phone] Brannon Isaacs, PT - 05/21/2022 10:35 AM [...] plan as stated. Time IN / OUT: 6725-7505 Total Minutes, Physical Therapy: 25 Billing Code: 2 [place] Isaacs DPT Pager: [phone] Physical Therapy Inpatient Rehabilitation Department Wellington Jean [...] 04/17/2021 in Pain and Spine Center at [facility] Weight 79.8 kg (175 lb 14.8 oz) [...] and plan of care per Dr. Mcnamara (resistor testing machine operator). 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 His [...] to Hosp-Admission (Current) from 05/15/2022 in 4 [facility] Office Visit from 04/17/2021 in Pain and Spine Center at [facility] Weight 79.8 kg (175 lb 14.8 oz) [...] findings andplan of care per Dr. Mcnamara (resistor testing machine operator). Please refer to her note [...] a mitral repair in 2000 (not at [facility]) with no CAD at that time. Currently, [...] AF and the first documented HR at [facility] was 125 bpm (presented to an an [...] onset Afib who presents in transfer from [facility] with acute limb ischemia of [...] management following Dottie Hill APRN 05/20/2022 Pager: [phone] Laney Atkins RN - 05/20/2022 1:14 AM EDT Pt Koko transferred to room from [facility]. A&Ox4, oriented to room and call boo. Masimo and telemetry placed. In agreement with assessment as documented this evening by Nuris ASHLEY. No complaints at this time. Pt aware of NPO status and plan for cardiac cath in AM. Urinal provided. Resting comfortably in bed. Nuris Lester RN - 05/20/2022 1:09 AM EDT Pt. Transferred to [facility]. RN accompanied patient to floor and handed off to [facility] RN Dottie Hill APRN - 05/19/2022 10:02 AM EDT Vascular Surgery Progress Note Koko Zamora is a 81 y.o. male with w new onset Afib who presents in transfer from [facility] with acute limb ischemia of the LLE. ?? The patient had sudden pain starting at 630 05/15/22, he presented [facility] where he was placed on heparin. [...] management following Dottie Hill APRN 05/19/2022 Pager: [phone] Emily Greer RN - 05/19/2022 6:28 AM EDT OUTCOME EVALUATION NOTE: OUTCOME SUMMARY: Patient AOx4, VSS on RA. Afib on tele. HR controlled w/ PRN metop, given x2. Denies CP, SOB, n/v. See flowsheets for NVC. Dressings to LLE CDI, prevena WV to groin intact. Voiding to urinal. LBM MILITARY ANALYST, patient stating he will maybe try the [...] adequately without difficulty to bedside urinal. LBM MILITARY ANALYST. Up to chair this AM with nursing staff. Worked with PT, tolerated well. Diet changed to regular at 1800.Plan is for cardiac cath on Friday. PLAN MOVING FORWARD: Bleeding precautions Pain management neurovascular checks PT/OT laboratory analyst INDIVIDUALIZED FALL PREVENTION INTERVENTIONS: Patient-specific fall [...] onset Afib who presents in transfer from [facility] with acute limb ischemia of [...] mL Intravenous BID ??? PHENobarbitaL 0.12 mg/kg/dose ([place]) Oral BID ??? thiamine 100 mg Oral [...] Dispo: Floor, dispo planning care management following Dotite Hill APRN 05/18/2022 Pager: [phone] Brannon Isaacs, PT - 05/18/2022 10:00 AM [...] Biopsy Spine 07/20/[address] [facility] INTERVENTIONL RAD ??? IR VERTEBROPLASTY LUMBAR MULTIPLE LEVELS 07/20/2019 IR Vertebroplasty Lumbar Multiple Levels 07/20/[address] [facility] INTERVENTIONL RAD ??? IR VERTEBROPLASTY THORACIC SINGLE LEVEL 10/25/2020 IR Vertebroplasty Thoracic Single Level 10/25/[address] [facility] INTERVENTIONL RAD ??? PRO EMBLC/THRMBC FEMORAL POPLITEAL AORTO-ILIAC ARTERY Left 05/15/2022 EMBOLECTOMY OR THROMBECTOMY, FEMOROPOPLITEAL, AORTOILIAC ARTERY BY LEG INCISION (WRVU 19.48) performed by Fito Summers MD at [facility] MAIN OR Social History: Pt lives [...] in this evaluation. Time IN / OUT: 1748-9996 Total Minutes, Physical Therapy: 30 Billing Code: Basilio Isaacs, PT Pager: [phone] Physical Therapy Inpatient Rehabilitation Department Emily Sauceda RN - 05/18/2022 4:34 AM EDT OUTCOME EVALUATION NOTE: OUTCOME SUMMARY: Patient AOx4, VSS on 2LNC. Afib on tele. HR above 120, MD aware, PRN IV metop given x1, HR returned to 90's-low 100's. Denies CP, SOB, n/v. See flowsheets for NVC. Dressings to LLE CDI, prevena WV to groin intact. Voiding to urinal. LBM MILITARY ANALYST. Heparin gtt therapeutic. Pain controlled. Patient sleeping [...] adequately without difficulty to bedside urinal. LBM MILITARY ANALYST. Patient not OOB this shift. Currently NPO awaitingprocedure in confectionery laboratory manager. PLAN MOVING FORWARD: Bleeding precautions Pain management neurovascular checks PT/OT NPO for confectionery laboratory manager INDIVIDUALIZED FALL PREVENTION INTERVENTIONS: Patient-specific [...] the Emergency Department as a transfer from [facility] with left lower extremity limb ischemia. He went to [facility] and was startedon heparin and transferred to [facility] for evaluation by vascular surgery with [...] he will will be going to the confectionery laboratory manager for evaluation. Will defer PT eval at present but will see as ordered post cardiac catheritizaton. Social Hx:Pt lives with his Ursula in [place], [place] in a 2 level home in [...] WBAT LLE LISBET HERMAN PT Pager # [phone] In-Pt Rehab Medicine Dottie Hill APRN - 05/17/2022 7:42 AM EDT Vascular Surgery Progress Note Koko Zamora is a 81 y.o. male with w new onset Afib who presents in transfer from [facility] with acute limb ischemia of [...] mL Intravenous BID ??? PHENobarbitaL 0.24 mg/kg/dose ([place]) Oral BID Followed by ??? [START ON 05/18/2022] PHENobarbitaL 0.12 mg/kg/dose ([place]) Oral BID ??? thiamine 100 mg Oral [...] Floor, dispo planning care management following Dottie iHll APRN 05/17/2022 Pager: [phone] Sary Dos Santos, RN - 05/17/2022 12:16 [...] onset Afib who presents in transfer from [facility] with acute limb ischemia of [...] mL Intravenous BID ??? PHENobarbitaL 0.48 mg/kg/dose ([place]) Oral BID Followed by ??? [START ON 05/17/2022] PHENobarbitaL 0.24 mg/kg/dose ([place]) Oral BID Followed by ??? [START ON 05/18/2022] PHENobarbitaL 0.12 mg/kg/dose ([place]) Oral BID ??? thiamine 100 mg Oral [...] management following Edward Rodríguez MD 05/16/2022 Pager: [phone] Sary Dos Santos RN - 05/16/2022 12:52 [...] 2129 Hand off to DION Ramirez 3 vaughan documented in this encounter H&P Notes Kerry [...] onset Afib who presents in transfer from [facility] with acute limb ischemia of [...] Biopsy Spine 07/20/[address] [facility] INTERVENTIONL RAD ??? IR VERTEBROPLASTY LUMBAR MULTIPLE LEVELS 07/20/2019 IR Vertebroplasty Lumbar Multiple Levels 07/20/[address] [facility] INTERVENTIONL RAD ??? IR VERTEBROPLASTY THORACIC SINGLE LEVEL 10/25/2020 IR Vertebroplasty Thoracic Single Level 10/25/[address] [facility] INTERVENTIONL RAD Social Hx: Social History [...] Refill ??? fluticasone propionate (FLONASE) 50 mcg/actuation [place], Suspension as needed. ??? fluorouraciL (EFUDEX) 5 [...] and consented. Tim Chicas MD 05/15/2022 Pager: [phone] documented in this encounter ED Notes Lc Harris PA - 05/15/2022 1:20 PM EDT ED Provider Note HPI: Koko Zamora is a 81 y.o. male with history of atrial fibrillation not on anticoagulation, and GI bleeding who presents to the Emergency Department as a transfer from [facility] with left lower extremity limb ischemia. Patient says that the symptoms started roughly 630 this morning when he developed severe pain in his left lower extremity. He went to [facility] and was started on heparin and transferred to [facility] for evaluation by vascular surgery. Review [...] lower extremity earlier today and went to [facility] where it was determined that he had ischemia of the left lower extremity. Vascular surgery [facility] was contacted and he was transferred [...] orders before pt. Arrival. Pt. Arrived at [facility] by EMS at 1150, vascular team at [...] in an outpatient cardiac rehabilitation program at [facility] was discussed. Patient agrees to a referral to this program. Timing will depend on his recovery from Vascular surgery. He is going home w/VNA PT. I gave him the brochure for the program at [facility] for future reference. Care Management [...] information for follow-up Home Health & Hospice, [facility] [address] [place] [address] Transportation: family or friend will provide Functional [...] Type: *No Product type* / Secondary Insurance: [facility] Prescription Coverage: Yes This plan was formulated with input from patient and team. All are in agreement with plan. IP RS has communicated with [facility] - for initial IMM. RAlmita (Satish) DION López RN/CM - Cellphone: [phone] Pager: [phone] Covering Service RN/CM Plan of Care - [...] catheterization, transferred in hospital bed accompanied by Green Feed Attendant RN, remains on telemetry monitoring. Heparin gtt [...] Type: *No Product type* / Secondary Insurance: [facility] Last Physical Therapy Recommendation: home with home health, home with supervision with None Last Occupational Therapy Recommendation: with Plan for discharge is: Home w/ Services Outpatient Agency/Support Group Needs: None Home Health Services: Registered Nurse, Physical Therapy, Occupational Therapy Agency Referrals: I have met with the patient to: ?? discuss discharge planning needs. ?? provide the [facility], Office of Care Management letter from the Business Consult pertaining to rehab referrals. ?? provide a letter describing our affiliations within the [facility] and educate about their right to choose where referrals are sent. ?? provide a list of Home Health Agencies / Durable Medical Equipment vendors which serve their preferred geographic area. ?? provided patient with [facility] Star Quality Rating handout. They have requested referrals to: [facility]. [address] [place] [address] Note routed to a Senior Applications Developer who will communicate referrals to facilities and provide any required information. Transportation: family or friend will provide Barriers to discharge: None Plan going forward: Patient is going for a cardiac cath today and plan will come from there. Patientwas recently seen by PT and they recommend VNA at time of discharge. [facility] was routed and pendedat this time. Care Management will continue to follow and assist with discharge planning and coordination of care as indicated. Anticipated Date of Discharge: 05/21/2022 Nataly RICHMOND RN Phone: [phone] Pager: [phone] Plan of Care - Laney Atkins RN [...] were [place] [address] [address] INPATIENT CARDIOLOGY CONSULT NOTE Date of Consultation: 05/17/2022 Admit Date: 05/15/2022 Hospital Day 2 days Reason for Consult: New afib Active Problems: Active Hospital Problems Diagnosis Limb ischemia Resolved Hospital Problems No resolved problems to display. HPI: Koko Zamora is a 81 y.o. male with a PMHx significant for MVP (s/p MV repair 2000), tobacco use, HLD, who presented to [facility] from OSH on 05/15 with acute limb ischemia of LLE and was found to be in atrial fibrillation. Patient had sudden onset LLE pain on 05/15 and presented to [facility], where he was started on heparin and transferred to [facility]. Upon arrival to [facility], patient was in atrial fib with [facility] [...] Biopsy Spine 07/20/[address] [facility] INTERVENTIONL RAD IR VERTEBROPLASTY LUMBAR MULTIPLE LEVELS 07/20/2019 IR Vertebroplasty Lumbar Multiple Levels 07/20/[address] [facility] INTERVENTIONL RAD IR VERTEBROPLASTY THORACIC SINGLE LEVEL 10/25/2020 IR Vertebroplasty Thoracic Single Level 10/25/[address] [facility] INTERVENTIONL RAD PRO EMBLC/THRMBC FEMORAL POPLITEAL AORTO-ILIAC ARTERY Left 05/15/2022 EMBOLECTOMY OR THROMBECTOMY, FEMOROPOPLITEAL, AORTOILIAC ARTERY BY LEG INCISION (WRVU 19.48) performed by Fito Summers MD at [facility] MAIN OR Allergies Allergen Reactions Aspirin Other (See Comments) GI bleed Out-Patient Medications: Medications Prior to Admission Medication Sig Dispense Refill Last Dose fluorouraciL (EFUDEX) 5 % Cream daily. CRESTOR 40 mg Tablet Take 40 mg by mouth daily. fluticasone propionate (FLONASE) 50 mcg/actuation [place], Suspension as needed. ascorbic acid, vitamin C, [...] 5 mL Intravenous BID PHENobarbitaL 0.24 mg/kg/dose ([place]) Oral BID Followed by [START ON 05/18/2022] PHENobarbitaL 0.12 mg/kg/dose ([place]) Oral BID thiamine 100 mg Oral Daily folic acid 1,000 mcg Oral Daily multivitamin with minerals 1 tablet Oral Daily heparin (porcine) infusion 1,200 Units/hr (05/17/22 1329) Family History: No family history on file. [...] ED to Hosp-Admission (Current) from 05/15/[address] [place] [address] Office Visit from 04/17/2021 in Pain and Spine Center at [facility] Weight 79.8 kg (175 lb 14.8 oz) [...] continue to follow Anne-Marie Larson MD Pager [phone] Clinic: [phone] 05/17/22 6:22 PM Initial Assessments - Ifrah [...] 180 days) Any patient receiving care at [facility] must abide by [place] law. The hierarchy [...] raised toilet seat Home Address confirmed as: [facility] [facility] [address] Social & Family Supports: All names listed below confirmed with patient as Incorrect. Will notify conifer to correct. Wifes address is same as and phone is [phone]. Extended Emergency Contact Information Primary Emergency Contact: Demarco Zamorana Address: [facility] [place] [address] [facility] Relation: Spouse Current Care Provided by: [...] Type: *No Product type* / Secondary Insurance: [facility] Prescription Coverage: Yes Preferred Pharmacy: [id number] - [place], [place] - [address] [facility] [address] [facility] [place] [address] [facility] - [place], [place] - [address] [facility] [address] [facility] [address] [place] Status: Patient is a : unable to assess Primary Care Provider: Bobby Das MD [phone] Patient/Caregiver Goals of Treatment: to walk again Potential Needs for Transition of Care: none noted per 05/16 IDR Transportation: family will provide Transportation Anticipated: family or friend will provide Concerns to be Addressed: no discharge needs identified Assessment: Patient is admitted to vascular surg service for left lower extremity limb ischemia Plan: Per PT OT recommendations . Has used [facility] in the past. A member of the Care Management team will continue to monitor progress, follow for continuity of care and assist with transition of care planning. Ifrah Bell RN BSN [facility] Pick UpPublic Health Service Officer of Care Management Pager [phone] Brief Op Note - Erin Garza MD - 05/15/2022 5:04 PM EDT Brief Operative Note Patient Name: Koko Zamora : [id number] MR#: [id number] Case Date: 05/15/2022 Surgeon: Surgeon(s) and Role: [...] Garza MD - 05/15/2022 2:08 PM EDT [facility] Operative Note Patient Name: Koko Zamora : [id number] MR#: [id number] Case Date: 05/15/2022 Surgeon: Surgeon(s) and Role: [...] MD [facility] GASTROENTEROLOGY DEPT [place], [place] [address] (Wo rk) 09/05/2022 Appointment Cardiology Trinity Reid MD [facility] CARDIOLOGY [place], [place] [address] (Wo rk) 09/05/2022 Office Visit Cardiology Trinity Reid MD [facility] CARDIOLOGY [place], [place] [address] (Wo rk) Scheduled Referrals [...] Component Value Ref Test Analysis Performed At [facility] Range Method Time Signature VB Text Department: Vascular Surgery Lab VASCUBASE Report Patient: [id number] (KOKO ZAMORA) CPT: 07635 Referring Physician: FITO SUMMERS ?? Phone: Indications: s/p L [employer] endart. Diabetes mellitus: no Findings: Right ?Pressure [...] athologist Signature Heparin UFH 0.42 IU/mL [facility] LABORATORY Comment: Heparin (anti-Xa) levels [...] Organization Address City/State/[place] [address] Differential, Automated (05/21/2022 6:15 AM EDT) athologist Signature Neutrophils % 58.8 % [facility] LABORATORY Neutr Abs (ANC) 3.97 1.70 - [facility] 6.10 [facility] x10(3)[facility] LABORATORY Lymphocytes % 25.2 % [facility] LABORATORY Lymphocytes Abs 1.7 0.9 - 3.2 [facility] x10(3)/[facility] LABORATORY Monocytes % 12.9 % [facility] LABORATORY Monocyte Abs 0.9 0.3 - 0.9 [facility] x10(3)[facility] LABORATORY Eosinophils % 2.1 % [facility] LABORATORY Eosinophils Abs 0.1 0.0 - 0.4 [facility] x10(3)/[facility] LABORATORY Basophils % 0.4 % [facility] LABORATORY Basophils Abs 0.0 0.0 - 0.1 [facility] x10(3)/[facility] LABORATORY Immature Gran % [...] Rain Gran Abs 0.04 0.00 - 0.04 x10(3)/[facility] LABORATORY Specimen Anatomical Collection Method Collection Time Receive d Time (Source) Location / / Volume Laterality Blood 05/21/2022 6:15 AM 2 6:38 EDT AM EDT Resulting Agency Comment Spec In Lab Edward Rodríguez MD HEMATOLOGY ORDERABLES Performing Organization Address City/State/[place] [address] (ABNORMAL) Hemogram (05/21/2022 6:15 AM EDT) [facility] gist Method Time Signature WBC 6.8 4.0 - 9.5 [facility] LABORATORY RBC 3.59 (L) 4.58 - [facility] 5.54 [facility] x10(6)/[facility] LABORATORY Hemoglobin 11.8 (L) 13.7 [facility] 16.5 g/dL [facility] LABORATORY Hematocrit 34.5 (L) 40.5 [facility] 48.5 % [facility] LABORATORY MCV 96.1 (H) 82.9 - [facility] XIAO 93.1 [facility] LABORATORY MCH 32.9 (H) 27.5 - [facility] 32.1 pg [facility] LABORATORY MCHC 34.2 32.0 - [facility] 35.7 g/dL [facility] LABORATORY Platelets 198 145 - 357 [facility] x10(3)/[facility] LABORATORY RDWSD 44.9 36.0 - [facility] 45.0 [facility] LABORATORY RDWCV 12.6 11.4 - [facility] 13.8 % [facility] LABORATORY MPV 10.0 7.6 - 12.9 [facility] LABORATORY nRBC % Auto 0.3 % [facility] LABORATORY nRBC Abs Auto 0.020 (H) 0.000 - [facility] 0.000 [facility] x10(3)/[facility] LABORATORY Specimen Anatomical Collection Method Collection Time Receive d Time (Source) Location / / Volume Laterality Blood 05/21/2022 6:15 AM 2 6:38 EDT AM EDT Resulting Agency Comment Spec In Lab Edward Rodríguez MD HEMATOLOGY ORDERABLES Performing Organization Address City/State/[place] [address] EKG 12 Lead (05/20/2022 7:04 PM EDT) Component Value Ref Range Test Analysis Performed Pathologis t Method Time At Signature Ventricular rate 101 BPM MUSE SYSTEM QRS Duration 116 ms MUSE SYSTEM Q-T Interval 378 ms MUSE SYSTEM QTC Calculated 490 ms MUSE SYSTEM (Bezet) Calculated R [place] -53 degrees MUSE SYSTEM Calculated T [place] 101 degrees MUSE SYSTEM INTERPRETATION Atrial fibrillation [...] Narrative 05/20/2022 7:09 PM EDT ?[facility] ? Cardiac Cathete rization/Intervention Report ? Patient Name: Koko Zamora ? Procedure Date: 05/20/2022 ? A #: [id number] ? Primary Physician: Abundio Servin ? Case #: [id number] ? File Name: [id number] ? Catheterization Order Number: [id number] ? [facility] ? Final Report [place], [place] ? Patient Name: ? Koko J. Klarissa uson ? ID#: ?[id number] ? : ?1940 ? Procedure Date: ? [...] procedure was Urgent. The indication for ?the confectionery laboratory manager visit is cardiomyo nita. Chest [...] ?3.5 guiding catheter and a 3.5 Fr [facility] [place] [address] ??20 Mhz. ??Imaging ?was successful. ??Image [...] A premounted 2. 75 x 30 mm [place] (AMPARO) was deployed ? with a maximum [...] require ?modification of this regimen. C onsult [facility] Interventional Cardiology for ?questions. ?The 1 year [...] be different from the original. [facility] Cardiac Catheterization/Intervention Re port Patient Name: Koko Zamora Procedure Date: 05/20/2022 A #: [id number] Primary Physician: Abundio Servin Case #: File Name: [id number] Catheterization Order Number: [id number] [facility] Att[facility] Final Report [place], [place] Patient Name: Koko Zamora ID#: [id number] : 1940 Procedure Date: May 20, 2022 [...] designated a s ASA Class IV. The [facility] clinical frailty scale is 3: Managing [...] e was Urgent. The indication for the confectionery laboratory manager visit is cardiomyopathy. C hest pain symptom [...] 3.5 guiding catheter and a 3.[address] [facility] [place] [address] 20 Mhz. Imaging was successful. Image [...] atmospheres. A premounted 2.75 x 30 mm [place] (AMPARO) was deployed with a maximum inflation [...] require modification of this regimen. Consult [facility] Interventional Cardiology for questions. The 1 year [...] 123 65 - 199 [facility] mg/dL [facility] LABORATORY Comment: Supplemental ranges: <140 mg/dL before meals <180 mg/dL all other times of the day Specimen Anatomical Collection Method Collection Time Receive d Time (Source) Location / / Volume Laterality Blood 05/20/2022 5:42 PM 5:42 EDT PM EDT Fito Summers MD POINT OF CARE TEST ORDERABLE S Performing Organization Address City/State/[place] [address] (ABNORMAL) BMP w/fasting Glucose (05/20/2022 10:50 AM EDT) P athologist Signature Glucose 152 (H) 65 - [facility] Fasting mg/dL [facility] LABORATORY Comment: ?Fasting* Glucose Interpretive [...] Organization Address City/State/[place] [address] Heparin (unfractionated) Level (05/20/2022 5:02 AM EDT) athologist Signature Heparin UFH 0.57 IU/mL [facility] LABORATORY Comment: Heparin (anti-Xa) levels [...] Organization Address City/State/[place] [address] (ABNORMAL) Differential, Automated (05/20/2022 5:02 AM EDT) Patholo gist Method Time Signature Neutrophils % 58.1 % [facility] LABORATORY Neutr Abs (ANC) 4.52 1.70 - [facility] 6.10 [facility] x10(3)/[facility] LABORATORY Lymphocytes % 24.1 % [facility] LABORATORY Lymphocytes Abs 1.9 0.9 - 3.2 [facility] x10(3)/[facility] LABORATORY Monocytes % 13.8 % [facility] LABORATORY Monocyte Abs 1.1 (H) 0.3 - 0.9 [facility] x10(3)/[facility] LABORATORY Eosinophils % 2.6 % [facility] LABORATORY Eosinophils Abs 0.2 0.0 - 0.4 [facility] x10(3)/[facility] LABORATORY Basophils % 0.8 % [facility] LABORATORY Basophils Abs 0.1 0.0 - 0.1 [facility] x10(3)/[facility] LABORATORY Immature Gran % [...] Gran Abs 0.05 (H) 0.00 - 0.04 x10(3)/[facility] LABORATORY Specimen Anatomical Collection Method Collection Time Receive d Time (Source) Location / / Volume Laterality Blood 05/20/2022 5:02 AM 5:19 EDT AM EDT Resulting Agency Comment Spec In Lab Edward Rodríguez MD HEMATOLOGY ORDERABLES Performing Organization Address City/State/[place] [address] (ABNORMAL) Hemogram (05/20/2022 5:02 AM EDT) Analysis Performed At Patho logist Time Signature WBC 7.8 4.0 - 9.5 [facility] x10(3)/[facility] LABORATORY RBC 3.53 (L) 4.58 - [facility] XIAO 5.54 [facility] x10(6)/[facility] LABORATORY Hemoglobin 11.4 (L) 13.7 - [facility] 16.5 g/dL [facility] LABORATORY Hematocrit 34.3 (L) 40.5 - [facility] XIAO 48.5 % [facility] LABORATORY MCV 97.2 (H) 82.9 - [facility] 93.1 [facility] LABORATORY MCH 32.3 (H) 27.5 - [facility] XIAO 32.1 pg [facility] LABORATORY MCHC 33.2 32.0 - [facility] X[facility] 35.7 g/dL [facility] LABORATORY Platelets 181 145 - 357 [facility] x10(3)/[facility] LABORATORY RDWSD 46.4 (H) 36.0 - [facility] 45.0 [facility] LABORATORY RDWCV 13.0 11.4 - [facility] 13.8 % [facility] LABORATORY MPV 10.4 7.6 - 12.9 [facility] LABORATORY nRBC % Auto 0.0 % [facility] LABORATORY nRBC Abs Auto 0.000 0.000 - [facility] 0.000 [facility] x10(3)/[facility] LABORATORY Specimen Anatomical Collection Method Collection Time Receive d Time (Source) Location / / Volume Laterality Blood 05/20/2022 5:02 AM 2 5:19 EDT AM EDT Resulting Agency Comment Spec In Lab Edward Rodríguez MD HEMATOLOGY ORDERABLES Performing Organization Address City/State/[place] [address] Heparin (unfractionated) Level (05/19/2022 3:26 AM EDT) P athologist Signature Heparin UFH 0.59 IU/mL [facility] LABORATORY Comment: Heparin (anti-Xa) levels [...] Organization Address City/State/[place] [address] (ABNORMAL) Differential, Automated (05/19/2022 3:26 AM EDT) Patholo gist Method Time Signature Neutrophils % 62.1 % [facility] LABORATORY Neutr Abs (ANC) 4.59 1.70 - [facility] 6.10 [facility] x10(3)/[facility] LABORATORY Lymphocytes % 22.1 % [facility] LABORATORY Lymphocytes Abs 1.6 0.9 - 3.2 [facility] x10(3)/[facility] LABORATORY Monocytes % 13.5 % [facility] LABORATORY Monocyte Abs 1.0 (H) 0.3 - 0.9 [facility] x10(3)/[facility] LABORATORY Eosinophils % 1.3 % [facility] LABORATORY Eosinophils Abs 0.1 0.0 - 0.4 [facility] x10(3)/[facility] LABORATORY Basophils % 0.5 % [facility] LABORATORY Basophils Abs 0.0 0.0 - 0.1 [facility] x10(3)/[facility] LABORATORY Immature Gran % [...] Rain Gran Abs 0.04 0.00 - 0.04 x10(3)/[facility] LABORATORY Specimen Anatomical Collection Method Collection Time Receive d Time (Source) Location / / Volume Laterality Blood 05/19/2022 3:26 AM 2 3:59 EDT AM EDT Resulting Agency Comment Spec In Lab Edward Rodríguez MD HEMATOLOGY ORDERABLES Performing Organization Address City/State/[place] [address] (ABNORMAL) Hemogram (05/19/2022 3:26 AM EDT) Analysis Performed At Patho logist Time Signature WBC 7.4 4.0 - 9.5 [facility] x10(3)/[facility] LABORATORY RBC 3.74 (L) 4.58 - [facility] 5.54 [facility] x10(6)/[facility] LABORATORY Hemoglobin 12.1 (L) 13.7 - [facility] 16.5 g/dL [facility] LABORATORY Hematocrit 36.4 (L) 40.5 - [facility] [place] 48.5 % [facility] LABORATORY MCV 97.3 (H) 82.9 - [facility] 93.1 [facility] LABORATORY MCH 32.4 (H) 27.5 - [facility] [place] 32.1 pg [facility] LABORATORY MCHC 33.2 32.0 - [facility] [place] 35.7 g/dL [facility] LABORATORY Platelets 168 145 - 357 [facility] x10(3)/[facility] LABORATORY RDWSD 46.9 (H) 36.0 - [facility] 45.0 [facility] LABORATORY RDWCV 13.0 11.4 - [facility] 13.8 % [facility] LABORATORY MPV 10.5 7.6 - 12.9 [facility] LABORATORY nRBC % Auto 0.0 % [facility] LABORATORY nRBC Abs Auto 0.000 0.000 - [facility] 0.000 [facility] x10(3)/[facility] LABORATORY Specimen Anatomical Collection Method Collection Time Receive d Time (Source) Location / / Volume Laterality Blood 05/19/2022 3:26 AM 2 3:59 EDT AM EDT Resulting Agency Comment Spec In Lab Edward Rodríguez MD HEMATOLOGY ORDERABLES Performing Organization Address City/State/[place] [address] TSH (05/18/2022 8:00 PM EDT) P athologist Signature TSH 2.27 0.27 - 4.20 [facility] [place] mcIU/mL [facility] LABORATORY Comment: Reference Interval (mcIU/mL): Females: ??First Trimester: 0.23-3.88 ??Second Trimester: 0.22-3.90 ??Third Trimester: 0.44-4.66 Specimen Anatomical Collection Method Collection Time Receive d Time (Source) Location / / Volume Laterality Blood 05/18/2022 8:00 PM 2 8:06 EDT PM EDT Resulting Agency Comment Spec In Lab Fito Summers MD CHEMISTRY ORDERABLES Performing Organization Address City/State/ZIP Code Phon e Number [address] (ABNORMAL) Differential, Automated (05/18/2022 3:34 AM EDT) [facility] Method Time Signature Neutrophils % 67.2 % [facility] LABORATORY Neutr Abs (ANC) 5.89 1.70 - [facility] 6.10 [facility] x10(3)/[facility] LABORATORY Lymphocytes % 17.1 % [facility] LABORATORY Lymphocytes Abs 1.5 0.9 - 3.2 [facility] x10(3)/[facility] LABORATORY Monocytes % 13.6 % [facility] LABORATORY Monocyte Abs 1.2 (H) 0.3 - 0.9 [facility] x10(3)/[facility] LABORATORY Eosinophils % 1.0 % [facility] LABORATORY Eosinophils Abs 0.1 0.0 - 0.4 [facility] x10(3)/[facility] LABORATORY Basophils % 0.6 % [facility] LABORATORY Basophils Abs 0.0 0.0 - 0.1 [facility] x10(3)/[facility] LABORATORY Immature Gran % [...] Rain Gran Abs 0.04 0.00 - 0.04 x10(3)/[facility] LABORATORY Specimen Anatomical Collection Method Collection Time Receive d Time (Source) Location / / Volume Laterality Blood 05/18/2022 3:34 AM 3:48 EDT AM EDT Resulting Agency Comment Spec In Lab Edward Rodríguez MD HEMATOLOGY ORDERABLES Performing Organization Address City/[facility]/ZIP Code Phon e Number [address] (ABNORMAL) Hemogram (05/18/2022 3:34 AM EDT) Analysis Performed At Patho logist Time Signature WBC 8.8 4.0 - 9.5 [facility] x10(3)/[facility] LABORATORY RBC 3.45 (L) 4.58 - [facility] 5.54 [facility] x10(6)/[facility] LABORATORY Hemoglobin 11.2 (L) 13.7 - [facility] 16.[facility] g/dL [facility] LABORATORY Hematocrit 33.0 (L) 40.5 - [facility] 48.5 % [facility] LABORATORY MCV 95.7 (H) 82.9 - [facility] 93.1 [facility] LABORATORY MCH 32.5 (H) 27.5 - [facility] 32.1 pg [facility] LABORATORY MCHC 33.9 32.0 - [facility] 35.7 g/dL [facility] LABORATORY Platelets 130 (L) 145 - 357 [facility] x10(3)/[facility] LABORATORY RDWSD 46.2 (H) 36.0 - [facility] 45.0 [facility] LABORATORY RDWCV 13.2 11.4 - [facility] 13.8 % [facility] LABORATORY MPV 10.8 7.6 - 12.9 [facility] LABORATORY nRBC % Auto 0.0 % [facility] LABORATORY nRBC Abs Auto 0.000 0.000 - [facility] 0.000 [facility] x10(3)/[facility] LABORATORY Specimen Anatomical Collection Method Collection Time Receive d Time (Source) Location / / Volume Laterality Blood 05/18/2022 3:34 AM 3:48 EDT AM EDT Resulting Agency Comment Spec In Lab Edward Rodríguez MD HEMATOLOGY ORDERABLES Performing Organization Address City/State/[place] [address] Heparin (unfractionated) Level (05/18/2022 [...] Summers MD HEMATOLOGY ORDERABLES Performing Organization Address City/[facility]/[place] [address] Magnesium (05/17/2022 3:33 AM EDT) athologist Signature Magnesium 0.76 0.69 - 1.07 [facility] mmol/L [facility] LABORATORY Specimen Anatomical Collection Method Collection Time Receive d Time (Source) Location / / Volume Laterality Blood Venous Draw / 05/17/2022 3:33 AM 05/17/20 4:05 Unknown EDT AM EDT Resulting Agency Comment Spec In Lab Dottie Hill APRN CHEMISTRY ORDERABLES Performing Organization Address City/[facility]/[place] [address] (ABNORMAL) Basic Metabolic Panel (non-fasting) (05/17/2022 3:33 AM EDT) athologist Signature Glucose Lvl 158 65 - 199 [facility] mg/dL [facility] LABORATORY Comment: Diabetes: >=200 mg/dL [...] Organization Address City/State/[place] [address] (ABNORMAL) Differential, Automated (05/17/2022 3:33 AM EDT) [facility] gist Method Time Signature Neutrophils % 65.5 % [facility] LABORATORY Neutr Abs (ANC) 6.84 (H) 1.70 - [facility] 6.10 [facility] x10(3)/[facility] LABORATORY Lymphocytes % 19.7 % [facility] LABORATORY Lymphocytes Abs 2.1 0.9 - 3.2 [facility] x10(3)/[facility] LABORATORY Monocytes % 13.1 % [facility] LABORATORY Monocyte Abs 1.4 (H) 0.3 - 0.9 [facility] x10(3)/[facility] LABORATORY Eosinophils % 0.6 % [facility] LABORATORY Eosinophils Abs 0.1 0.0 - 0.4 [facility] x10(3)/[facility] LABORATORY Basophils % 0.6 % [facility] LABORATORY Basophils Abs 0.1 0.0 - 0.1 [facility] x10(3)/[facility] LABORATORY Immature Gran % 0.50 [...] Gran Abs 0.05 (H) 0.00 - 0.04 x10(3)/[facility] LABORATORY Specimen Anatomical Collection Method Collection Time Receive d Time (Source) Location / / Volume Laterality Blood 05/17/2022 3:33 AM 3:53 EDT AM EDT Resulting Agency Comment Spec In Lab Edward Rodríguez MD HEMATOLOGY ORDERABLES Performing Organization Address City/State/[place] [address] (ABNORMAL) Hemogram (05/17/2022 3:33 AM EDT) Analysis Performed At Patho logist Time Signature WBC 10.4 (H) 4.0 - 9.5 [facility] x10(3)/[facility] LABORATORY RBC 3.72 (L) 4.58 - [facility] 5.54 [facility] x10(6)/[facility] LABORATORY Hemoglobin 12.0 (L) 13.7 - [facility] [place] 16.5 g/dL [facility] LABORATORY Hematocrit 36.4 (L) 40.5 - [facility] 48.5 % [facility] LABORATORY MCV 97.8 (H) 82.9 - [facility] 93.1 [facility] LABORATORY MCH 32.3 (H) 27.5 - [facility] [place] 32.1 pg [facility] LABORATORY MCHC 33.0 32.0 - [facility] 35.7 g/dL [facility] LABORATORY Platelets 149 145 - 357 [facility] x10(3)/[facility] LABORATORY RDWSD 48.7 (H) 36.0 - [facility] 45.0 [facility] LABORATORY RDWCV 13.5 11.4 - [facility] 13.8 % [facility] LABORATORY MPV 10.6 7.6 - 12.9 [facility] LABORATORY nRBC % Auto 0.0 % [facility] LABORATORY nRBC Abs Auto 0.000 0.000 - [facility] 0.000 [facility] x10(3)/[facility] LABORATORY Specimen Anatomical Collection Method Collection Time Receive d Time (Source) Location / / Volume Laterality Blood 05/17/2022 3:33 AM 3:53 EDT AM EDT Resulting Agency Comment Spec In Lab Edward Rodríguez MD HEMATOLOGY ORDERABLES Performing Organization Address City/[facility]/[place] [address] (ABNORMAL) Urinalysis Microscopic Exam [...] Organization Address City/State/ZIP Code Phon [place] [address] (ABNORMAL) Urinalysis with reflex Culture (05/16/2022 11:15 PM EDT) Patholo gist Method Time Signature Glucose UA Negative Negative [facility] mg/dL [facility] LABORATORY Protein UA Negative Negative [facility] mg/dL [facility] LABORATORY Bilirubin UA Negative Negative [facility] mg/dL [facility] LABORATORY Comment: Clinical correlation required [...] 8.0 [facility] LABORATORY Blood UA Small (A) Negative mg/dL [facility] LABORATORY Ketones UA Trace (A) Negative mg/dL [facility] LABORATORY Nitrite UA Negative Negative [facility] LABORATORY Leukocytes UA Negative Negative [facility] LABORATORY Appearance UA Clear Clear [facility] LABORATORY Spec [place] UA 1.021 1.005 - 1.030 [facility] LABORATORY Color UA Yellow Yellow [facility] LABORATORY Culture Reflexed No [facility] LABORATORY Specimen Anatomical Collection Method Collection Time Receive d Time (Source) Location / / Volume Laterality Clean Catch 05/16/2022 11:15 05/16/2022 Urine PM EDT 11:30 PM EDT Resulting Agency Comment Spec In Lab Fito Summers MD URINE ORDERABLES Performing Organization Address City/State/[place] [address] Heparin (unfractionated) Level (05/16/2022 10:59 PM EDT) P athologist Signature Heparin UFH 0.65 IU/mL [facility] LABORATORY Comment: Specimen drawn more [...] City/State/ZIP Code Phon e Number [place] [phone] XR Chest One View [...] who have questions please contact the health resident care manager rn that requested your imaging first. ? Narrative [...] ho have questions please contact the health resident care manager rn that requested your imaging first. Fito Summers MD IMG DX ORDERABLES EKG 12 Lead (05/16/2022 8:57 PM EDT) Component Value Ref Range Test Analysis Performed Pathologis t Method Time At Signature Ventricular rate 117 BPM MUSE SYSTEM QRS Duration 112 ms MUSE SYSTEM Q-T Interval 346 ms MUSE SYSTEM QTC Calculated 482 ms MUSE SYSTEM (Bezet) Calculated R [place] -48 degrees MUSE SYSTEM Calculated T [place] 111 degrees MUSE SYSTEM INTERPRETATION Atrial fibrillation [...] Summers MD ECG ORDERABLES Performing Organization Address City/[facility]/ZIP Code Phon e Number MUSE SYSTEM Heparin (unfractionated) Level (05/16/2022 4:34 PM EDT) P athologist Signature Heparin UFH 0.53 IU/mL [facility] LABORATORY Comment: Heparin (anti-Xa) levels [...] Summers MD HEMATOLOGY ORDERABLES Performing Organization Address City/[facility]/[place] [address] ECHOCARDIOGRAM COMPLETE W CONTRAST (05/16/2022 12:49 PM EDT) P athologist Signature EF 28 HEARTLAB SYSTEM Anatomical Region Laterality Modality Cardiac Other Specimen (Source) Anatomical Collection Method Collection Time Re ceived Time Location / / Volume Laterality 05/16/2022 11:22 AM EDT Narrative 05/16/2022 1:54 PM EDT ?[facility] ? Medical Center ?[address] ? [place] [address] ?Voice: ?Fax: ? Echocardiogram Report Name: KOKO ZAMORA ?Study Date: 05/16/2022 11:22 AM ? Patient Location: 3T 0303 B : 1940 ? Height: 67.5 in ? Account: [id number] Age: 81 yrs ? Weight: 176 lb Gender: Male ?BSA: 1.9 m2 Ordering Physician: FITO SUMMERS Referring Physician: MALI FLORIAN Performed By: Jolene Bernard RDCS Exam Location: [facility]. Interpretation Summary Left ventricle is mildly [...] and LV systolic dysfunction are new. Procedure Complete-[id number]. Image enhancement Optiso n was used for [...] note might [place] [address] Voice: Fax: Echocardiogram Report Name: KOKO ZAMORA Study Date: 05/2022 11:22 AM Patient Location: [address] [place] [address] : 1940 Height: 67.5 in Account: [id number] Age: 81 yrs Weight: 176 lb Gender: Male BSA: 1.9 m2 Ordering Physician: FITO SUMMERS Referring Physician: MALI FLORIAN Performed By: Jolene Bernard RDCS Exam Location: [facility]. Interpretation Summary Left ventricle is mildly [...] and LV systolic dysfunction are new. Procedure Complete-[id number]. Image enhancement Optiso n was used for [...] (ABNORMAL) Differential, Automated (05/16/2022 3:01 AM EDT) [facility] Method Time Signature Neutrophils % 78.8 % [facility] LABORATORY Neutr Abs (ANC) 9.11 (H) 1.70 - [facility] 6.10 [facility] x10(3)/[facility] LABORATORY Lymphocytes % 9.4 % [facility] LABORATORY Lymphocytes Abs 1.1 0.9 - 3.2 [facility] x10(3)/[facility] LABORATORY Monocytes % 10.9 % [facility] LABORATORY Monocyte Abs 1.3 (H) 0.3 - 0.9 [facility] x10(3)/[facility] LABORATORY Eosinophils % 0.0 % [facility] LABORATORY Eosinophils Abs 0.0 0.0 - 0.4 [facility] x10(3)/[facility] LABORATORY Basophils % 0.3 % [facility] LABORATORY Basophils Abs 0.0 0.0 - 0.1 [facility] x10(3)/[facility] LABORATORY Immature Gran % 0.60 [...] Gran Abs 0.07 (H) 0.00 - 0.04 x10(3)/[facility] LABORATORY Specimen Anatomical Collection Method Collection Time Receive d Time (Source) Location / / Volume Laterality Blood 05/16/2022 3:01 AM 3:36 EDT AM EDT Resulting Agency Comment Spec In Lab Erin Garza MD HEMATOLOGY ORDERABLES Performing Organization Address City/State/ZIP Code Phon e Number [place] [phone] (ABNORMAL) Hemogram (05/16/2022 3:01 AM EDT) Analysis Performed At Patho logist Time Signature WBC 11.6 (H) 4.0 - 9.5 [facility] x10(3)/[facility] LABORATORY RBC 3.62 (L) 4.58 - [facility] 5.54 [facility] x10(6)/[facility] LABORATORY Hemoglobin 12.0 (L) 13.7 - [facility] 16.5 g/dL [facility] Hematocrit 35.3 (L) 40.5 - [facility] 48.5 % [facility] LABORATORY MCV 97.5 (H) 82.9 [facility] 93.1 [facility] LABORATORY MCH 33.1 (H) 27.5 - [facility] 32.1 pg [facility] LABORATORY MCHC 34.0 32.0 - [facility] 35.7 g/dL [facility] LABORATORY Platelets 151 145 - 357 [facility] x10(3)/[facility] RDWSD 47.6 (H) 36.0 - [facility] 45.0 [facility] RDWCV 13.3 11.4 - [facility] 13.8 % [facility] LABORATORY MPV 10.5 7.6 - 12.9 [facility] LABORATORY nRBC % Auto 0.0 % [facility] LABORATORY nRBC Abs Auto 0.000 0.000 - [facility] 0.000 [facility] x10(3)/[facility] LABORATORY Specimen Anatomical Collection Method Collection Time Receive d Time (Source) Location / / Volume Laterality Blood 05/16/2022 3:01 AM 2 3:36 EDT AM EDT Resulting Agency Comment Spec In Lab Erin Garza MD HEMATOLOGY ORDERABLES Performing Organization Address City/State/ZIP Code Phon e Number [address] Phosphorus (05/16/2022 3:01 AM EDT) P athologist Signature Phosphorus 3.7 2.5 - 4.5 [facility] mg/dL [facility] LABORATORY Specimen Anatomical Collection Method Collection Time Receive d Time (Source) Location / / Volume Laterality Blood 05/16/2022 3:01 AM 2 3:36 EDT AM EDT Resulting Agency Comment Spec In Lab Fito Summers MD CHEMISTRY ORDERABLES Performing Organization Address City/State/ZIP Code Phon e Number [address] Magnesium (05/16/2022 3:01 AM EDT) P athologist Signature Magnesium 0.77 0.69 - 1.07 [facility] mmol/L [facility] LABORATORY Specimen Anatomical Collection Method Collection Time Receive d Time (Source) Location / / Volume Laterality Blood 05/16/2022 3:01 AM 2 3:36 EDT AM EDT Resulting Agency Comment Spec In Lab Fito Summers MD CHEMISTRY ORDERABLES Performing Organization Address City/[facility]/ZIP Code Phon e Number [address] (ABNORMAL) Basic Metabolic Panel (non-fasting) (05/16/2022 3:01 AM EDT) P athologist Signature Glucose Lvl 222 (H) 65 - 199 [facility] mg/dL [facility] LABORATORY Comment: Diabetes: >=200 mg/dL [...] Organization Address City/State/[place] [address] (ABNORMAL) BLOOD GAS 2 ARTERIAL (05/15/2022 3:33 PM EDT) Analysis Performed At Patho logist Time Signature pH Art 7.33 (L) 7.35 - [facility] 7.45 [facility] LABORATORY pCO2 Art 41 35 - 45 [facility] mmHg [facility] LABORATORY pO2 Art 131 (H) 85 - 104 [facility] LABORATORY HCO3 Art 21.1 20.0 - [facility] 26.0 [facility] mmol/L [facility] LABORATORY BE Art -4.8 (L) -3.0 - 3.0 [facility] mmol/L [facility] LABORATORY Hgb Blood Gas 13.4 (L) 13.7 - [facility] 16.5 g/dL [facility] O2HB Art 96.9 94.0 - [facility] 97.0 % [facility] LABORATORY COHB Art 1.4 % [facility] LABORATORY Comment: Nonsmokers: 0.5-1.5% COHB Smokers: Variable, but usually less than 10% Toxic: 20-30% COHB Lethal: Greater than 60% COHB METHB Art 0.3 <=1.5 % [facility] LABORATORY Na Whole Blood 139 [...] Whole Bld 136 65 - 199 mg/dL [facility] [...] Organization Address City/State/[place] [address] (ABNORMAL) BLOOD GAS 2 ARTERIAL (05/15/2022 2:06 PM EDT) Analysis Performed At Patho logist Time Signature pH Art 7.39 7.35 - [facility] 7.45 [facility] LABORATORY pCO2 Art 35 35 - 45 [facility] mmHg [facility] LABORATORY pO2 Art 135 (H) 85 - 104 [facility] LABORATORY HCO3 Art 20.8 20.0 - [facility] 26.0 [facility] mmol/L [facility] LABORATORY BE Art -4.2 (L) -3.0 - 3.0 [facility] mmol/L [facility] LABORATORY Hgb Blood Gas 14.5 13.7 - [facility] 16.5 g/dL [facility] O2HB Art 97.2 (H) 94.0 - [facility] 97.0 % [facility] LABORATORY COHB Art 1.2 % [facility] LABORATORY Comment: Nonsmokers: 0.5-1.5% COHB Smokers: Variable, but usually less than 10% Toxic: 20-30% COHB Lethal: Greater than 60% COHB METHB Art 0.3 <=1.5 % [facility] LABORATORY Na Whole Blood 140 [...] Whole Bld 152 65 - 199 mg/dL [facility] LABORATORY Comment: Diabetes: >=200 mg/dL plus symp toms. Lactate WB 1.5 0.5 - 2.2 mmol/L [facility] LABORATORY Specimen Anatomical Collection Method Collection Time Receive d Time (Source) Location / / Volume Laterality Blood 05/15/2022 2:06 PM 2 2:[address] Jamel Torre MD CHEMISTRY ORDERABLES Performing Organization Address City/[facility]/[place] [address] (ABNORMAL) Prothrombin Time (05/15/2022 12:30 PM EDT) P athologist Signature PT 12.9 (H) 9.4 - 12.5 [facility] LABORATORY INR 1.1 [facility] Morales DO HEMATOLOGY ORDERABLES Performing Organization Address City/[facility]/ZIP [facility] [place] [address] (ABNORMAL) APTT (05/15/2022 12:30 [...] Organization Address City/State/[place] [address] Gold Tube HOLD (05/15/2022 12:20 PM EDT) P athologist Signature Gold Hold Sample in [facility]. [facility] LABORATORY Specimen Anatomical Collection Method Collection Time Receive d Time (Source) Location / / Volume Laterality Blood No Charge / 05/15/2022 12:20 05/15/2022 Unknown PM EDT 12:20 PM EDT Lc Tan Kimberly TRIPP CHEMISTRY ORDERABLES Performing Organization Address City/[facility]/[place] [address] Type and Screen Validity (05/15/2022 12:00 PM EDT) [facility] gist Method Time Signature T&S only valid [facility] LABORATORY Comment: This Type and Screen result is only valid at the [facility] Specimen Anatomical Collection Method Collection Time Receive d Time (Source) Location / / Volume Laterality Blood 05/15/2022 12:00 05/15/2022 PM EDT 12:17 PM EDT Resulting Agency Comment Spec In Lab Lc Harris PA BLOOD BANK ORDERABLES Performing Organization Address City/[facility]/ZIP Code Phon e Number [address] ABORH Recheck Status (05/15/2022 12:00 PM EDT) [facility] gist Method Time Signature ABORH Recheck Order Placed [facility] K Order [facility] LABORATORY ABORH Type Complete [facility] LABORATORY Specimen Anatomical Collection Method Collection Time Receive d Time (Source) Location / / Volume Laterality Blood 05/15/2022 12:00 05/15/2022 PM EDT 12:17 PM EDT Resulting Agency Comment Spec In Lab Lc Tan Kimberly PA BLOOD BANK ORDERABLES Performing Organization Address City/State/[place] [address] CK (05/15/2022 12:00 PM EDT) P athologist Signature CK, Total 87 0 - 200 [facility] unit/L [facility] LABORATORY Specimen Anatomical Collection Method Collection Time Receive d Time (Source) Location / / Volume Laterality Blood Venous Draw / 05/15/2022 12:00 05/15/2022 Unknown PM EDT 12:19 PM EDT Resulting Agency Comment Spec In Lab Fito Summers MD CHEMISTRY ORDERABLES Performing Organization Address City/State/[place] [address] Antibody screen (05/15/2022 12:00 PM EDT) [facility] Method Time Signature Ab Screen Negative [facility] LABORATORY Expires at 05/18/2022 [facility] [id number] on: [facility] LABORATORY Specimen Anatomical Collection Method Collection Time Receive d Time (Source) Location / / Volume Laterality Blood 05/15/2022 12:00 05/15/2022 PM EDT 12:17 PM EDT Resulting Agency Comment Spec In Lab Lc TRIPP BLOOD BANK ORDERABLES Performing Organization Address City/[facility]/ZIP Code Phon e Number [address] ABO/Rh Typing (05/15/2022 12:00 PM EDT) athologist Signature ABORh Type O Pos [facility] LABORATORY Specimen Anatomical Collection Method Collection Time Receive d Time (Source) Location / / Volume Laterality Blood 05/15/2022 12:00 05/15/2022 PM EDT 12:17 PM EDT Resulting Agency Comment Spec In Lab Lc TRIPP BLOOD BANK ORDERABLES Performing Organization Address City/[facility]/[place] [address] (ABNORMAL) Differential, Automated (05/15/2022 12:00 PM EDT) [facility] Method Time Signature Neutrophils % 79.4 % [facility] LABORATORY Neutr Abs (ANC) 7.49 (H) 1.70 - [facility] 6.10 [facility] x10(3)/[facility] L LABORATORY Lymphocytes % 11.3 % [facility] LABORATORY Lymphocytes Abs 1.1 0.9 - 3.2 [facility] x10(3)/[facility] LABORATORY Monocytes % 7.8 % [facility] LABORATORY Monocyte Abs 0.7 0.3 - 0.9 [facility] x10(3)/[facility] LABORATORY Eosinophils % 0.6 % [facility] LABORATORY Eosinophils Abs 0.1 0.0 - 0.4 [facility] x10(3)/[facility] LABORATORY Basophils % 0.6 % [facility] LABORATORY Basophils Abs 0.1 0.0 - 0.1 [facility] x10(3)/[facility] LABORATORY Immature Gran % 0.30 % [facility] [...] Rain Gran Abs 0.03 0.00 - 0.04 x10(3)/[facility] LABORATORY Specimen Anatomical Collection Method Collection Time Receive d Time (Source) Location / / Volume Laterality Blood 05/15/2022 12:00 05/15/2022 PM EDT 12:19 PM EDT Resulting Agency Comment Spec In Lab Lc TRIPP HEMATOLOGY ORDERABLES Performing Organization Address City/State/[place] [address] (ABNORMAL) Hemogram (05/15/2022 12:00 PM EDT) Analysis Performed At Patho logist Time Signature WBC 9.4 4.0 - 9.5 [facility] x10(3)/[facility] LABORATORY RBC 4.48 (L) 4.58 - [facility] 5.54 [facility] x10(6)/[facility] LABORATORY Hemoglobin 14.5 13.7 - [facility] 16.5 g/dL [facility] LABORATORY Hematocrit 42.4 40.5 - [facility] 48.5 % [facility] LABORATORY MCV 94.6 (H) 82.9 - [facility] 93.1 [facility] LABORATORY MCH 32.4 (H) 27.5 - [facility] 32.1 pg [facility] LABORATORY MCHC 34.2 32.0 - [facility] 35.7 g/dL [facility] LABORATORY Platelets 209 145 - 357 [facility] x10(3)/[facility] LABORATORY RDWSD 45.9 (H) 36.0 - [facility] 45.0 [facility] LABORATORY RDWCV 13.1 11.4 - [facility] 13.8 % [facility] LABORATORY MPV 10.5 7.6 - 12.9 [facility] LABORATORY nRBC % Auto 0.0 % [facility] LABORATORY nRBC Abs Auto 0.000 0.000 - [facility] 0.000 [facility] x10(3)/[facility] LABORATORY Specimen Anatomical Collection Method Collection Time Receive d Time (Source) Location / / Volume Laterality Blood 05/15/2022 12:00 05/15/2022 PM EDT 12:19 PM EDT Resulting Agency Comment Spec In Lab Lc TRIPP HEMATOLOGY ORDERABLES Performing Organization Address City/State/[place] [address] (ABNORMAL) Basic Metabolic Panel (non-fasting) (05/15/2022 12:00 PM EDT) P athologist Signature Glucose Lvl 203 (H) 65 - 199 [facility] mg/dL [facility] LABORATORY Comment: Diabetes: >=200 mg/dL [...] Organization Address City/State/[place] [address] documented in this encounter [...] mg = 1.8 mg/kg/dose ? 67.7 kg [place] weight), Intravenous, at 11.3 mL/hr, EVERY 3 [...] mg = 2.4 mg/kg/dose ? 67.7 kg [place] weight), Intravenous, at 15 mL/hr, ONCE, 1 [...] mg = 0.24 mg/kg/dose ? 67.7 kg [place] weight), Oral, 2 TIMES DAILY, 2 doses, [...] mg = 0.48 mg/kg/dose ? 67.7 kg [place] weight), Oral, 2 TIMES DAILY, 2 doses, [...] mg = 0.12 mg/kg/dose ? 67.7 kg [place] weight), Oral, 2 TIMES DAILY, 2 doses, First dose on [facility] 05/18/22 at 0900, Last dose on [facility] 05/18/22 at 2100, Hold for RASS Less [...] - Reason: Transfer to a Procedural area)1955 ([facility] Unhold - Provider: Admin Adt) 0816 (Given - Provider: Etta contreras RN) 100 mg, Oral, DAILY, First dose on Brandi at 0900, Until Discontinued, Routine valsartan (Diovan) tablet 40 mg 837 (Given - Provider : Caroline Zamora, DION)2008 (Given - Provider: Nuris Lester RN) 0853 (Given - Provider: Barbie Joyce RN)1750 ([facility] Hold - Provider: Admin Adt - Reason: Transfer to a Procedural area)1955 ([facility] Unhold - Provider: Admin Adt)2005 [...] - Reason: Transfer to a Procedural area)1955 ([facility] Unhold - Provider: Admin Adt) [...] - Reason: Transfer to a Procedural area)1955 ([facility] Unhold - Provider: Admin Adt) [...] bisacodyL (Dulcolax) suppository 10 mg 1 751 ([facility] Hold - Provider: Admin Adt - Reason: Transfer to a Procedural area)1955 ([facility] Unhold - Provider: Admin Adt) [...]
Routine documented in this encounter Care Teams Card Puncher Relationship Specialty Start Date End Date Bobby Das MD PCP - General 10/02/[address] [place] [address] [place] [phone] documented as of this encounter
--- OUTSIDE RECORDS SUMMARY | 2022-07-31 09:00 | XMS_ITS | Encounter Summary ---
:1940 Author Organization [facility] Address [facility] [place] [address] Care Team Providers Name Role Phone Bobby Das MD Primary Care Provider Encounter Details Date Type Department Care Team Description 05/31/2022 Office Visit Vascular Surgery at [facility]; [facility] NETWORK ENGINEER ADMINISTRATOR Atrial fibrillation, unspecified type; [facility] SOB (shortness of breath) Drive DR Garcia PR VASCULAR SURGERY [address] [place] [id number] [phone] Social History Tobacco Use Types Packs/Day Years [...] who presents in transfer from [facility] with acute limb ischemia of the LLE.??The [...] emergently went to the OR for L REHAB NURSING TECH transverse arteriotomy and primary repair, thromboembolectomy of L SFA/PFA/REHAB NURSING TECH, reperfusion venous drainage for 250 cc, and [...] ND, no palpable pulsatile masses Extremity - [place], warm, no ulceration, brisk capillary refill, left [...] 08/08/2022 Office Visit Gastroenterology Negra Collins MD [facility] ER GASTROENTEROLOGY DEPT [place] [address] (Wo rk) 09/05/2022 Appointment Cardiology Trinity Reid MD [facility] ER CARDIOLOGY [place], [place] [address] (Wo rk) 09/05/2022 Office Visit Cardiology Trinity Reid MD [facility] CARDIOLOGY [place], [place] [address] (Wo rk) documented as of this encounter Visit Diagnoses Diagnosis Dizzy Dizziness and giddiness Atrial fibrillation, unspecified type SOB (shortness of breath) Shortness of breath documented in this encounter Care Teams Cosmetic Sales Assistant Relationship Specialty Start Date End Date Bobby Das MD PCP - General 10/02/[address] [place] [address] [place] [phone] documented as of this encounter
--- OUTSIDE RECORDS SUMMARY | 2022-07-31 09:00 | XMS_ITS | Encounter Summary ---
:1940 Author Organization [facility] [place] [address] Care Team Providers Name Role Phone Bobby Das MD Primary Care Provider Encounter Details Date Type Department Care Team Description 05/24/2022 Telephone Cardiology at [facility] Kourtney Jimenez, RN [facility] [place] [address] Social History Tobacco Use Types Packs/Day [...] MD [facility] DR GASTROENTEROLOGY DEPT [place], [place] [address] (Wo rk) 09/05/2022 Appointment Cardiology Trinity Reid MD [facility] ER CARDIOLOGY [place], [place] [address] (Wo rk) 09/05/2022 Office Visit Cardiology Trinity Reid MD [facility] ER CARDIOLOGY [place], [place] [address] (Wo rk) documented as of this encounter Visit Diagnoses Not on filedocumented in this encounter Care Teams Frame Bender Relationship Specialty Start Date End Date Bobby Das MD PCP - General 10/02/[address] [place] [address] [place] [phone] documented as of this encounter
--- OUTSIDE RECORDS SUMMARY | 2022-07-31 09:00 | XMS_ITS | Encounter Summary ---
:1940 Author Organization [facility] [place] [address] Care Team Providers Name Role Phone Bobby Das MD Primary Care Provider Encounter Details Date Type Department Care Team Description 05/28/2022 Telephone Vascular Surgery at [facility] Dominique Bolivar, RN [facility] [place] [phone] Social History Tobacco Use Types Packs/Day [...] RN - 05/28/2022 1:20 PM EDT This staff writer returned phone call due to 's [...] cardiac history and symptoms of lightheadedness, this staff writer recommended the patient be evaluated. Discussed [...] [facility] DR GASTROENTEROLOGY DEPT [place], [place] [address] (Wo rk) 09/05/2022 Appointment Cardiology Trinity Reid MD [facility] CARDIOLOGY [place], [place] [address] (Wo rk) 09/05/2022 Office Visit Cardiology Trinity Reid MD [facility] CARDIOLOGY [place], [place] [address] (Wo rk) documented as of this encounter Visit Diagnoses Not on filedocumented in this encounter Care Teams Numerical Control Router Operator Relationship Specialty Start Date End Date Bobby Das MD PCP - General 10/02/[address] [place] [address] [place] [phone] documented as of this encounter
--- OUTSIDE RECORDS SUMMARY | 2022-07-31 09:01 | XMS_ITS | Encounter Summary ---
:1940 Author Organization [facility] [place] [address] Care Team Providers Name Role Phone Bobby Das MD Primary Care Provider Encounter Details Date Type Department Care Team Description 09/06/2020 Ancillary Procedure Radiology at [facility] Amy Grimaldo [address] [place] [address] [address] [phone] NEUROSURGERY-N [place], [place] [address] Social History Tobacco Use Types [...] MD [facility] GASTROENTEROLOGY DEPT [place], [place] [address] (Wo rk) 09/05/2022 Appointment Cardiology Trinity Reid MD [facility] CARDIOLOGY [place], [place] [address] (Wo rk) 09/05/2022 Office Visit Cardiology Trinity Reid MD [facility] CARDIOLOGY [place], [place] [address] (Wo rk) documented as of [...] Organization Address City/State/ZIP Code Phon e Number [place], [place] documented in this encounter Visit Diagnoses Not on filedocumented in this encounter Care Teams Electromyographic Technician Relationship Specialty Start Date End Date Bobby Das MD PCP - General 10/02/[address] [place] [address] [place] [phone] documented as of this encounter
--- OUTSIDE RECORDS SUMMARY | 2022-07-31 09:01 | XMS_ITS | Encounter Summary ---
:1940 [place] [address] Care Team Providers Name Role Phone Bobby Das MD Primary Care Provider Reason for Visit Reason Comments Left Leg Pain Auth/Cert Specialty Diagnoses / Procedures Referred By Contact Refer red To Contact Diagnoses Limb ischemia LLE thrombus Fito Summers MD [facility] [place] [address] Referral ID Status Reason Start Date Expiration Date Visits Requ ested Visits Authorized [id number] 1 1 Encounter Details Date Type Department Care Team Description 05/20/2022 Surgery Industrial Automation Engineer Abundio Mcguire , CARDIAC CATHETERIZATION [facility] [place] [address] CARDIOLOGY [phone] [place], [place] [address] (Wo rk) Social History Tobacco [...] onset Afib who presents in transfer from [facility] with acute limb ischemia of the [...] emergently went to the OR for L ORNAMENTAL METAL WORKER transverse arteriotomy and primary repair, thromboembolectomy of L SFA/PFA/ORNAMENTAL METAL WORKER, reperfusion venous drainage for 250 cc, [...] Discharge Condition: Good Discharge to: Home with [address] [address] Future Appointments and Orders Future Appointments and Orders Future Appointments Provider Department Dept Phone 05/23/2022 10:30 AM Loretta Cohen MD Dermatology at [facility] Arrive at: Hydro Pneumatic Tester [address] [place] [address] 06/07/2022 1:30 PM Gail Rae APRN Vascular Surgery at [facility] [place] [place] Arrive at: Hydro Pneumatic Tester [address] [phone] 06/13/2022 7:30 AM Edson Lagos [place] Vascular Lab at [facility] Arrive at: Hydro Pneumatic Tester Area 06/13/2022 8:00 AM Fito Summers MD Vascular Surgery at [facility] [place] [place] Arrive at: Hydro Pneumatic Tester Area 3V [phone] 06/13/2022 10:00 AM Alan Reid MD Cardiology at [facility] [place] [place] Arrive at: Hydro Pneumatic Tester Area [phone] Future Orders Complete By Expires Ziopatch 48 Hrs-15 Days [ZRC1815 CPT(R)] 05/21/2022 11/20/2022 Process Instructions: Scheduling Instructions: Comments: Questions: Does the patient have a pacemaker? If yes provide HI/LO settings: Apply for 7 or 14 days?: 7 Where will study be performed?: [facility] [place] [place] Clinics JOSSELYN, legs, multiple levels [VAS8 Custom] 06/21/2022 (Approximate) 12/21/2022 Process Instructions: There is no in-house vascular mill laborer available on weeknights (5pm-8am), weekends, or holidays. IF THIS IS A REQUEST FOR AN EMERGENT STUDY DURING THOSE HOURS, please have the senior provider responsible for the patient page the Vascular Surgery Fellow/Senior Resident control panel assembler to discuss options. Scheduling Instructions: Questions: Indication for study/signs & symptoms: ALI s/p L fem cutdown with thromboembolectomy Question to be answered: Perfusion to feet? Please check toe pressure Preferred location?: [facility] [place] [place] Clinics Referral to Cardiology [REF12 Custom] As [...] Koko Zamora for admission to Home Health. [address] [place] [phone] (home) Date of : 1940 Inpatient DOCUMENTATION FOR VNA SERVICES (INCLUDING THOSE PATIENTS WITH MEDICARE COVERAGE REQUIRING HOME VNA SERVICES AND/OR HOSPICE SERVICES) PATIENT'S LOCATION: Koko Zamora [address] [place] [phone] (home) Cell: No relevant phone numbers on file. Gear Cutter's Name: Koko In discussion with the attending physician, it is certified that this patient is under their care and that they, or a Nurse Practitioner,Clinical Nurse specialist or Physician Data Keyer who is working directly with them, had [...] for managing ADL's. HOME HEALTH CARE AGENCY: [facility]. [address] [place] [address] Start of care: Within 24 to 48 [...] obtained from this patient'sPCP: Bobby Das MD [address] [place] [address] [place] [address] All VNA agencies which cover the [...] For any problems or questions please call [phone] For issues on weeknights after 5pm and weekends please call [phone] and ask for the Vascular Fellow control panel assembler. JOSEE Santiago Vascular Surgery 05/21/2022 documented in [...] For any problems or questions please call [phone] For issues on weeknights after 5pm and weekends please call [phone] and ask for the Vascular Fellow control panel assembler. documented in this encounter Medications at Time [...] 04/12/20 21 (FLONASE) 50 mcg/actuation Nare route Hazen, Suspension daily as needed. fluorouraciL (EFUDEX) 5 [...] onset Afib who presents in transfer from [facility] with acute limb ischemia of the [...] status, full code. JOSEE Santiago 05/21/2022 Pager: [phone] Brannon Isaacs, PT - 05/21/2022 10:35 AM [...] plan as stated. Time IN / OUT: 8177-8996 Total Minutes, Physical Therapy: 25 Billing Code: 2 BOSTON Isaacs DPT Pager: [phone] Physical Therapy Inpatient Rehabilitation Department [place] Jean [...] from 05/15/2022 in Intermediate Cardiac Care Unit [facility] Office Visit from 04/17/2021 in Pain and Spine Center at [facility] [place] [place] Weight 79.8 kg (175 lb 14.8 oz) [...] and plan of care per Dr. Mcnamara (gas dispatcher). Please refer to her note above for [...] 04/17/2021 in Pain and Spine Center at [facility] [place] [place] Weight 79.8 kg (175 lb 14.8 oz) [...] findings andplan of care per Dr. Mcnamara (gas dispatcher). Please refer to her note above for [...] a mitral repair in 2000 (not at [facility] [place] [place]) with no CAD at that time. Currently, [...] AF and the first documented HR at [facility] [place] [place] was 125 bpm (presented to an an [...] onset Afib who presents in transfer from [facility] with acute limb ischemia of the [...] management following Dottie Hill APRN 05/20/2022 Pager: [phone] Laney Atkins RN - 05/20/2022 1:14 AM [...] 05/20/2022 1:09 AM EDT Pt. Transferred to [facility]. RN accompanied patient to floor and handed off to [facility] RN Dottie Hill APRN - 05/19/2022 10:02 AM EDT Vascular Surgery Progress Note Koko Zamora is a 81 y.o. male with w new onset Afib who presents in transfer from [facility] with acute limb ischemia of the [...] management following Dottie Hill APRN 05/19/2022 Pager: [phone] Emily Sauceda RN - 05/19/2022 6:28 AM EDT OUTCOME EVALUATION NOTE: OUTCOME SUMMARY: Patient AOx4, VSS on RA. Afib on tele. HR controlled w/ PRN metop, given x2. Denies CP, SOB, n/v. See flowsheets for NVC. Dressings to LLE CDI, prevena [place] to groin intact. Voiding to urinal. LBM MEDICAL OFFICE REP, patient stating he will maybe try the [...] without difficulty to bedside urinal. LBM MEDICAL OFFICE REP. Up to chair this AM with nursing staff. Worked with PT, tolerated well. Diet changed to regular at 1800.Plan is for cardiac cath on Friday. PLAN MOVING FORWARD: Bleeding precautions Pain management neurovascular checks PT/OT blood bank laboratory technologist INDIVIDUALIZED FALL PREVENTION INTERVENTIONS: Patient-specific [...] onset Afib who presents in transfer from [facility] with acute limb ischemia of the [...] mL Intravenous BID ??? PHENobarbitaL 0.12 mg/kg/dose ([place]) Oral BID ??? thiamine 100 mg Oral [...] management following Dottie Hill APRN 05/18/2022 Pager: [phone] Brannon Isaacs, PT - 05/18/2022 10:00 AM [...] in this evaluation. Time IN / OUT: 2569-6644 Total Minutes, Physical Therapy: 30 Billing Code: Basilio Isaacs, PT Pager: [phone] Physical Therapy Inpatient Rehabilitation Department Emily Sauceda RN - 05/18/2022 4:34 AM EDT OUTCOME EVALUATION NOTE: OUTCOME SUMMARY: Patient AOx4, VSS on 2LNC. Afib on tele. HR above 120, MD aware, PRN IV metop given x1, HR returned to 90's-low 100's. Denies CP, SOB, n/v. See flowsheets for NVC. Dressings to LLE CDI, prevena [place] to groin intact. Voiding to urinal. LBM MEDICAL OFFICE REP. Heparin gtt therapeutic. Pain controlled. Patient sleeping [...] without difficulty to bedside urinal. LBM MEDICAL OFFICE REP. Patient not OOB this shift. Currently NPO awaitingprocedure in paving and surfacing labourer. PLAN MOVING FORWARD: Bleeding precautions Pain management neurovascular checks PT/OT NPO for paving and surfacing labourer INDIVIDUALIZED FALL PREVENTION INTERVENTIONS: Patient-specific fall [...] the Emergency Department as a transfer from [facility] with left lower extremity limb ischemia. He went to [facility] and was startedon heparin and transferred to [facility] for evaluation by vascular surgery with [...] he will will be going to the paving and surfacing labourer for evaluation. Will defer PT eval at present but will see as ordered post cardiac catheritizaton. Social Hx:Pt lives with his Ursula in [place], [place] in a 2 level home in [...] WBAT LLE LISBET HERMAN PT Pager # [phone] In-Pt Rehab Medicine Dottie Hill APRN - 05/17/2022 7:42 AM EDT Vascular Surgery Progress Note Koko Zamora is a 81 y.o. male with w new onset Afib who presents in transfer from [facility] with acute limb ischemia of the [...] mL Intravenous BID ??? PHENobarbitaL 0.24 mg/kg/dose ([place]) Oral BID Followed by ??? [START ON 05/18/2022] PHENobarbitaL 0.12 mg/kg/dose ([place]) Oral BID ??? thiamine 100 mg Oral [...] management following Dottie Hill APRN 05/17/2022 Pager: [phone] Sary Dos Santos, RN - 05/17/2022 12:16 [...] a regular diet, tolerated well, denied nausea. Cooepr removed in the AM. Pt voiding adequately [...] onset Afib who presents in transfer from [facility] with acute limb ischemia of the [...] mL Intravenous BID ??? PHENobarbitaL 0.48 mg/kg/dose ([place]) Oral BID Followed by ??? [START ON 05/17/2022] PHENobarbitaL 0.24 mg/kg/dose ([place]) Oral BID Followed by ??? [START ON 05/18/2022] PHENobarbitaL 0.12 mg/kg/dose ([place]) Oral BID ??? thiamine 100 mg Oral [...] management following Edward Rodríguez MD 05/16/2022 Pager: [phone] Sary Dos Santos RN - 05/16/2022 12:52 [...] met 2129 Hand off to DION Ramirez [place] documented in this encounter H&P Notes Kerry [...] onset Afib who presents in transfer from [facility] with acute limb ischemia of the [...] Refill ??? fluticasone propionate (FLONASE) 50 mcg/actuation Hazen, Suspension as needed. ??? fluorouraciL (EFUDEX) 5 [...] and consented. Tim Chicas MD 05/15/2022 Pager: [phone] documented in this encounter ED Notes Lc Harris PA - 05/15/2022 1:20 PM EDT ED Provider Note HPI: Koko Zamora is a 81 y.o. male with history of atrial fibrillation not on anticoagulation, and GI bleeding who presents to the Emergency Department as a transfer from [facility] with left lower extremity limb ischemia. Patient says that the symptoms started roughly 630 this morning when he developed severe pain in his left lower extremity. He went to [facility] and was started on heparin and transferred to [facility] for evaluation by vascular surgery. Review [...] lower extremity earlier today and went to [facility] where it was determined that he had ischemia of the left lower extremity. Vascular surgery [facility] was contacted and he was transferred [...] orders before pt. Arrival. Pt. Arrived at [facility] [place] [place] by EMS at 1150, vascular team at [...] in an outpatient cardiac rehabilitation program at [facility] was discussed. Patient agrees to a referral to this program. Timing will depend on his recovery from Vascular surgery. He is going home w/VNA PT. I gave him the brochure for the program at [facility] for future reference. Care Management Discharge [...] information for follow-up Home Health & H[facility], [place] [address] [place] [address] Transportation: family or friend will provide Functional [...] Type: *No Product type* / Secondary Insurance: [facility] Prescription Coverage: Yes This plan was formulated with input from patient and team. All are in agreement with plan. IP RS has communicated with [facility] - for initial IMM. Shawn López RN (Jonas) RN/CM - Cellphone: [phone] Pager: [phone] Covering Service RN/CM Plan of Care - [...] catheterization, transferred in hospital bed accompanied by Industrial Automation Engineer RN, remains on telemetry monitoring. Heparin [...] Type: *No Product type* / Secondary Insurance: [facility] Last Physical Therapy Recommendation: home with home health, home with supervision with None Last Occupational Therapy Recommendation: with Plan for discharge is: Home w/ Services Outpatient Agency/Support Group Needs: None Home Health Services: Registered Nurse, Physical Therapy, Occupational Therapy Agency Referrals: I have met with the patient to: ?? discuss discharge planning needs. ?? provide the [facility] [place] [place], Office of Care Management letter from the Multimedia Editor pertaining to rehab referrals. ?? provide a letter describing our affiliations within the [facility] and educate about their right to choose where referrals are sent. ?? provide a list of Home Health Agencies / Durable Medical Equipment vendors which serve their preferred geographic area. ?? provided patient with [facility] Star Quality Rating handout. They have requested referrals to: [facility]. [address] [place] [address] Note routed to a Paralegal Supervisor who will communicate referrals to facilities and provide any required information. Transportation: family or friend will provide Barriers to discharge: None Plan going forward: Patient is going for a cardiac cath today and plan will come from there. Patientwas recently seen by PT and they recommend VNA at time of discharge. [facility] was routed and pendedat this time. Care Management will continue to follow and assist with discharge planning and coordination of care as indicated. Anticipated Date of Discharge: 05/21/2022 Nataly RICHMOND RN Phone: [phone] Pager: [phone] Plan of Care - Laney Atkins RN [...] [facility] [place] [address] INPATIENT CARDIOLOGY CONSULT NOTE Date of Consultation: 05/17/2022 Admit Date: 05/15/2022 Hospital Day 2 days Reason for Consult: New afib Active Problems: Active Hospital Problems Diagnosis Limb ischemia Resolved Hospital Problems No resolved problems to display. HPI: Koko Zamora is a 81 y.o. male with a PMHx significant for MVP (s/p MV repair 2000), tobacco use, HLD, who presented to [facility] [place] [place] from OSH on 05/15 with acute limb ischemia of LLE and was found to be in atrial fibrillation. Patient had sudden onset LLE pain on 05/15 and presented to [facility], where he was started on heparin and transferred to [facility] [place] [place]. Upon arrival to [facility] [place] [place], patient was in atrial fib with RVR [...] mouth daily. fluticasone propionate (FLONASE) 50 mcg/actuation Hazen, Suspension as needed. ascorbic acid, vitamin C, [...] 5 mL Intravenous BID PHENobarbitaL 0.24 mg/kg/dose ([place]) Oral BID Followed by [START ON 05/18/2022] PHENobarbitaL 0.12 mg/kg/dose ([place]) Oral BID thiamine 100 mg Oral Daily folic acid 1,000 mcg Oral Daily multivitamin with minerals 1 tablet Oral Daily heparin (porcine) infusion 1,200 Units/hr (05/17/22 4014) Family History: No family history on file. [...] to Hosp-Admission (Current) from 05/15/[address] [place] [address] Office Visit from 04/17/2021 in Pain and Spine Center at [facility] [place] [place] Weight 79.8 kg (175 lb 14.8 oz) [...] continue to follow Anne-Marie Larson MD Pager [phone] Clinic: [phone] 05/17/22 6:22 PM Initial Assessments - Ifrah [...] 180 days) Any patient receiving care at [facility] [place] [place] must abide by [place] law. The hierarchy [...] (i) The agent with financial power of united states attorney or a conservator appointed in accordance [...] raised toilet seat Home Address confirmed as: [address] [place] [phone] Social & Family Supports: All names listed below confirmed with patient as Incorrect. Will notify toni to correct. Wifes address is same as and phone is [phone]. Extended Emergency Contact Information Primary Emergency Contact: Ursula Zamora Address: [address] [place] [address] [address] [place] [address] [facility] Relation: Spouse Current Care Provided [...] Type: *No Product type* / Secondary Insurance: [facility] Prescription Coverage: Yes Preferred Pharmacy: [id number] - [place], [place] - [address] [facility] [address] [place] [place] [address] [facility] - [place], [place] - [address] [facility] [address] [facility] [address] [place] Status: Patient is a : unable to assess Primary Care Provider: Bobby Das MD [phone] Patient/Caregiver Goals of Treatment: to walk again Potential Needs for Transition of Care: none noted per 05/16 IDR Transportation: family will provide Transportation Anticipated: family or friend will provide Concerns to be Addressed: no discharge needs identified Assessment: Patient is admitted to vascular surg service for left lower extremity limb ischemia Plan: Per PT OT recommendations . Has used [facility] in the past. A member of the Care Management team will continue to monitor progress, follow for continuity of care and assist with transition of care planning. Ifrah Bell RN BSN Edge SetterChief Commercial Officer of Care Management Pager [phone] Brief Op Note - Erin Garza MD - 05/15/2022 5:04 PM EDT Brief Operative Note Patient Name: Koko Zamora : [id number] MR#: [id number] Case Date: 05/15/2022 Surgeon: Surgeon(s) and Role: [...] Garza MD - 05/15/2022 2:08 PM EDT [facility] [place] [place] Operative Note Patient Name: Koko Zamora : [id number] MR#: [id number] Case Date: 05/15/2022 Surgeon: Surgeon(s) and Role: [...] [facility] DR GASTROENTEROLOGY DEPT [place], [place] [address] (Wo rk) 09/05/2022 Appointment Cardiology Trinity Reid MD [facility] CARDIOLOGY [place], [place] [address] (Wo rk) 09/05/2022 Office Visit Cardiology Trinity Reid MD [facility] CARDIOLOGY [place], [place] [address] (Wo rk) Scheduled Referrals Name [...] Component Value Ref Test Analysis Performed At [facility] Range Method Time Signature VB Text Department: Vascular Surgery Lab VASCUBASE Report Patient: [id number] (KOKO ZAMORA) CPT: 68485 Referring Physician: FITO SUMMERS ?? Phone: Indications: s/p L ORNAMENTAL METAL WORKER endart. Diabetes mellitus: no Findings: Right [...] P athologist Signature Heparin UFH 0.42 IU/mL [facility] LABORATORY Comment: Heparin (anti-Xa) levels should [...] Organization Address City/State/[place] [address] Differential, Automated (05/21/2022 6:15 AM EDT) P athologist Signature Neutrophils % 58.8 % [facility] LABORATORY Neutr Abs (ANC) 3.97 1.70 - [facility] 6.10 [facility] x10(3)[facility] LABORATORY Lymphocytes % 25.2 % [facility] LABORATORY Lymphocytes Abs 1.7 0.9 - 3.2 [facility] x10(3)[facility] LABORATORY Monocytes % 12.9 % [facility] LABORATORY Monocyte Abs 0.9 0.3 - 0.9 [facility] x10(3)[facility] LABORATORY Eosinophils % 2.1 % [facility] LABORATORY Eosinophils Abs 0.1 0.0 - 0.4 [facility] x10(3)[facility] LABORATORY Basophils % 0.4 % [facility] LABORATORY Basophils Abs 0.0 0.0 - 0.1 [facility] x10(3)[facility] LABORATORY Immature Gran % 0.60 [...] - 0.04 x10(3)/[facility] LABORATORY Specimen Anatomical Collection Method Collection Time Receive d Time (Source) Location / / Volume Laterality Blood 05/21/2022 6:15 AM 2 6:38 EDT AM EDT Resulting Agency Comment Spec In Lab Edward Rodríguez MD HEMATOLOGY ORDERABLES Performing Organization Address City/State/[place] [address] (ABNORMAL) Hemogram (05/21/2022 6:15 AM EDT) [facility] Method Time Signature WBC 6.8 4.0 - 9.5 [facility] x10(3)/[facility] LABORATORY RBC 3.59 (L) 4.58 - [facility] 5.54 [facility] x10(6)/[facility] LABORATORY Hemoglobin 11.8 (L) 13.7 - [facility] 16.5 g/dL [facility] LABORATORY Hematocrit 34.5 (L) 40.5 - [facility] 48.5 % [facility] LABORATORY MCV 96.1 (H) 82.9 - [facility] 93.1 [facility] LABORATORY MCH 32.9 (H) 27.5 - [facility] 32.1 pg [facility] LABORATORY MCHC 34.2 32.0 - [facility] 35.7 g/dL [facility] LABOR[facility]ORY Platelets 198 145 - 357 [facility] x10(3)/[facility] LABORATORY RDWSD 44.9 36.0 - [facility] 45.0 [facility] LABORATORY RDWCV 12.6 11.4 - [facility] 13.8 % [facility] LABORATORY MPV 10.0 7.6 - 12.9 [facility] LABORATORY nRBC % Auto 0.3 % [facility] LABORATORY nRBC Abs Auto 0.020 (H) 0.000 - [facility] 0.000 [facility] x10(3)/[facility] LABORATORY Specimen Anatomical Collection Method Collection Time Receive d Time (Source) Location / / Volume Laterality Blood 05/21/2022 6:15 AM 2 6:38 EDT AM EDT Resulting Agency Comment Spec In Lab Edward Rodríguez MD HEMATOLOGY ORDERABLES Performing Organization Address City/State/ZIP Code Phon e Number [place] [id number] HOS[address] LAB[address]ORY Drive EKG 12 Lead (05/20/2022 7:04 PM EDT) Component Value Ref Range Test Analysis Performed Pathologis t Method Time At Signature Ventricular rate 101 BPM MUSE SYSTEM QRS Duration 116 ms MUSE SYSTEM Q-T Interval 378 ms MUSE SYSTEM QTC Calculated 490 ms MUSE SYSTEM (Bezet) Calculated R Lewes -53 degrees MUSE SYSTEM Calculated T Lew[place] 101 degrees MUSE SYSTEM INTERPRETATION Atrial fibrillation [...] Laterality Volume Narrative 05/20/2022 7:09 PM EDT ?[facility] ? Cardiac Cathete rization/Intervention Report ? Patient Name: Koko Zamora. ? Procedure Date: 05/20/2022 ? A #: [id number] ? Primary Physician: Abundio Servin ? Case #: [id number] ? File Name: [id number] ? Catheterization Order Number: [id number] ? [facility] ? Final Report [place], [place] ? Patient Name: ? Koko J. Klarissa uson ? ID#: ?[id number] ? : ?1940 ? Procedure Date: ? [...] procedure was Urgent. The indication for ?the paving and surfacing labourer visit is cardiomyo nita. Chest pain [...] ?3.5 guiding catheter and a 3.5 Fr [facility] [address] ??20 Mhz. ??Imaging ?was successful. ??Image [...] premounted 2. 75 x 30 mm [place] (AMPARO) was deployed ? with a maximum [...] note might be different from the original. [facility] Cardiac Catheterization/Intervention Re port Patient Name: Koko Zamora Procedure Date: 05/20/2022 A #: [id number] Primary Physician: Abundio Servin Case #: File Name: [id number] Catheterization Order Number: [id number] [facility] Final Report [place], [place] Patient Name: Koko Zamora ID#: [id number] : 1940 Procedure Date: May 20, 2022 [...] is NYHA Functional Class III, is newly uum gnosed and is classified as Systolic. He has a history of a mitral valve repair. The patient has a calcified ascending aorta. He also has a history of peripheral vascular disease with critical limb ischemia. Pr ior to the initiation of this procedure, the patient was designated a s ASA Class IV. The [facility] clinical frailty scale is 3: Managing [...] e was Urgent. The indication for the paving and surfacing labourer visit is cardiomyopathy. C hest pain [...] 3.5 guiding catheter and a 3.5 Fr [facility] [place] [address] 20 Mhz. Imaging was successful. Image [...] A premounted 2.75 x 30 mm [place] (AMPARO) was deployed with a maximum inflation [...] require modification of this regimen. Consult D [facility] Interventional [...] Signature POC Glucose 123 65 - 199 [facility] Comment: Supplemental ranges: <140 mg/dL before meals <180 mg/dL all other times of the day Specimen Anatomical Collection Method Collection Time Receive d Time (Source) Location / / Volume Laterality Blood 05/20/2022 5:42 PM 2 5:42 EDT PM EDT Fito Summers MD POINT OF CARE TEST ORDERABLE S Performing Organization Address City/State/[place] [address] (ABNORMAL) BMP w/fasting Glucose (05/20/2022 10:50 AM EDT) P athologist Signature Glucose 152 (H) 65 - 99 [facility] Fasting mg/dL [facility] Comment: ?Fasting* Glucose Interpretive C [...] of Diabetes Mellitus, Position Statement from the [employer]. ??Diabete s Care, Volume 33, [...] Organization Address City/State/[place] [address] Heparin (unfractionated) Level (05/20/2022 5:02 AM EDT) P athologist Signature Heparin UFH 0.57 IU/mL [facility] LABORATORY Comment: Heparin (anti-Xa) levels should [...] Organization Address City/State/[place] [address] (ABNORMAL) Differential, Automated (05/20/2022 5:02 AM EDT) Patholo gist Method Time Signature Neutrophils % 58.1 % [facility] Neutr Abs (ANC) 4.52 1.70 - [facility] 6.10 [facility] x10(3)/[facility] LABORATORY Lymphocytes % 24.1 % [facility] Lymphocytes Abs 1.9 0.9 - 3.2 [facility] x10(3)/[facility] LABORATORY Monocytes % 13.8 % [facility] Monocyte Abs 1.1 (H) 0.3 - 0.9 [facility] x10(3)/[facility] LABORATORY Eosinophils % 2.6 % [facility] Eosinophils Abs 0.2 0.0 - 0.4 [facility] x10(3)[facility] LABORATORY Basophils % 0.8 % [facility] Basophils Abs 0.1 0.0 - 0.1 [facility] x10(3)/[facility] LABORATORY Immature Gran % [...] Abs 0.05 (H) 0.00 - 0.04 x10(3)/[facility] LABORATORY Specimen Anatomical Collection Method Collection Time Receive d Time (Source) Location / / Volume Laterality Blood 05/20/2022 5:02 AM 5:19 EDT AM EDT Resulting Agency Comment Spec In Lab Edward Rodríguez MD HEMATOLOGY ORDERABLES Performing Organization Address City/State/Z[place] [address] (ABNORMAL) Hemogram (05/20/2022 5:02 AM EDT) Analysis Performed At Patho logist Time Signature WBC 7.8 4.0 - 9.5 [facility] x10(3)/[facility] LABORATORY RBC 3.53 (L) 4.58 - [facility] 5.54 [facility] x10(6)/[facility] LABORATORY Hemoglobin 11.4 (L) 13.7 - [facility] 16.5 g/dL [facility] Hematocrit 34.3 (L) 40.5 - [facility] 48.5 % [facility] MCV 97.2 (H) 82.9 - [facility] 93.1 [facility] LABORATORY MCH 32.3 (H) 27.5 - [facility] 32.1 pg [facility] MCHC 33.2 32.0 - [facility] 35.7 g/dL [facility] Platelets 181 145 - 357 [facility] x10(3)/[facility] LABORATORY RDWSD 46.4 (H) 36.0 - [facility] 45.0 [facility] LABORATORY RDWCV 13.0 11.4 - [facility] 13.8 % [facility] MPV 10.4 7.6 - 12.9 [facility] LABORATORY nRBC % Auto 0.0 % [facility] nRBC Abs Auto 0.000 0.000 - [facility] 0.000 [facility] x10(3)/[facility] LABORATORY Specimen Anatomical Collection Method Collection Time Receive d Time (Source) Location / / Volume Laterality Blood 05/20/2022 5:02 AM 2 5:19 EDT AM EDT Resulting Agency Comment Spec In Lab Edward Rodríguez MD HEMATOLOGY ORDERABLES Performing Organization Address City/State/Z[place] [address] Heparin (unfractionated) Level (05/19/2022 3:26 AM EDT) P athologist Signature Heparin UFH 0.59 IU/mL [facility]ORY Comment: Heparin (anti-Xa) levels should [...] Organization Address City/State/ZIP [place] [address] (ABNORMAL) Differential, Automated (05/19/2022 3:26 AM EDT) [facility] Method Time Signature Neutrophils % 62.1 % [facility] Neutr Abs (ANC) 4.59 1.70 - [facility] 6.10 [facility] x10(3)/[facility] LABORATORY Lymphocytes % 22.1 % [facility] Lymphocytes Abs 1.6 0.9 - 3.2 [facility] x10(3)/[facility] LABORATORY Monocytes % 13.5 % [facility] Monocyte Abs 1.0 (H) 0.3 - 0.9 [facility] x10(3)/[facility] LABORATORY Eosinophils % 1.3 % [facility] Eosinophils Abs 0.1 0.0 - 0.4 [facility] x10(3)/[facility] LABORATORY Basophils % 0.5 % [facility] Basophils Abs 0.0 0.0 - 0.1 [facility] x10(3)/[facility] LABORATORY Immature Gran % [...] - 0.04 x10(3)/[facility] Specimen Anatomical Collection Method Collection Time Receive d Time (Source) Location / / Volume Laterality Blood 05/19/2022 3:26 AM 2 3:59 EDT AM EDT Resulting Agency Comment Spec In Lab Edward Rodríguez MD HEMATOLOGY ORDERABLES Performing Organization Address City/State/Z[place] [address] (ABNORMAL) Hemogram (05/19/2022 3:26 AM EDT) Analysis Performed At [facility] logist Time Signature WBC 7.4 4.0 - 9.5 [facility] x10(3)/[facility] LABORATORY RBC 3.74 (L) 4.58 - [facility] 5.54 [facility] x10(6)/[facility] LABORATORY Hemoglobin 12.1 (L) 13.7 - [facility] 16.5 g/dL [facility] Hematocrit 36.4 (L) 40.5 - [facility] 48.5 % [facility] MCV 97.3 (H) 82.9 - [facility] XIA[facility] 93.1 [facility] LABORATORY MCH 32.4 (H) 27.5 - [facility] 32.1 pg [facility] MCHC 33.2 32.0 - [facility] 35.7 g/dL [facility] Platelets 168 145 - 357 [facility] x10(3)/[facility] LABORATORY RDWSD 46.9 (H) 36.0 - [facility] 45.0 [facility] LABORATORY RDWCV 13.0 11.4 - [facility] 13.8 % [facility] MPV 10.5 7.6 - 12.9 [facility] fL [facility] nRBC % Auto 0.0 % [facility] nRBC Abs Auto 0.000 0.000 - [facility] 0.000 [facility] x10(3)/[facility] LABORATORY Specimen Anatomical Collection Method Collection Time Receive d Time (Source) Location / / Volume Laterality Blood 05/19/2022 3:26 AM 3:59 EDT AM EDT Resulting Agency Comment Spec In Lab Edward Rodríguez MD HEMATOLOGY ORDERABLES Performing Organization Address City/State/Z[place] [address] TSH (05/18/2022 8:00 PM EDT) P athologist Signature TSH 2.27 0.27 - 4.20 [facility] mcIU/mL [facility] Comment: Reference Interval (mcIU/mL): Females: ??First Trimester: 0.23-3.88 ??Second Trimester: 0.22-3.90 ??Third Trimester: 0.44-4.66 Specimen Anatomical Collection Method Collection Time Receive d Time (Source) Location / / Volume Laterality Blood 05/18/2022 8:00 PM 2 8:06 EDT PM EDT Resulting Agency Comment Spec In Lab Fito Summers MD CHEMISTRY ORDERABLES Performing Organization Address City/State/Z[place] [address] (ABNORMAL) Differential, Automated (05/18/2022 3:34 AM EDT) [facility] Method Time Signature Neutrophils % 67.2 % [facility] Neutr Abs (ANC) 5.89 1.70 - [facility] 6.10 [facility] x10(3)/[facility] LABORATORY Lymphocytes % 17.1 % [facility] Lymphocytes Abs 1.5 0.9 - 3.2 [facility] x10(3)/[facility] LABORATORY Monocytes % 13.6 % [facility] Monocyte Abs 1.2 (H) 0.3 - 0.9 [facility] x10(3)/[facility] LABORATORY Eosinophils % 1.0 % [facility] Eosinophils Abs 0.1 0.0 - 0.4 [facility] x10(3)/[facility] LABORATORY Basophils % 0.6 % [facility] Basophils Abs 0.0 0.0 - 0.1 [facility] x10(3)/[facility] LABORATORY Immature Gran % [...] Rain Gran Abs 0.04 0.00 - 0.04 x10(3)/[facility] LAB[facility] Specimen Anatomical Collection Method Collection Time Receive d Time (Source) Location / / Volume Laterality Blood 05/18/2022 3:34 AM 2 3:48 EDT AM EDT Resulting Agency Comment Spec In Lab Edward Rodríguez MD HEMATOLOGY ORDERABLES Performing Organization Address City/State/Z[place] [address] (ABNORMAL) Hemogram (05/18/2022 3:34 AM EDT) Analysis Performed At Patho logist Time Signature WBC 8.8 4.0 - 9.5 [facility] x10(3)/[facility] LABORATORY RBC 3.45 (L) 4.58 - [facility] 5.54 [facility] x10(6)/[facility]ORATORY Hemoglobin 11.2 (L) 13.7 - [facility] 16.5 g/dL [facility] Hematocrit 33.0 (L) 40.5 - [facility] 48.5 % [facility] MCV 95.7 (H) 82.9 - [facility] 93.1 [facility] LABORATORY MCH 32.5 (H) 27.5 - [facility] 32.1 pg [facility] MCHC 33.9 32.0 - [facility] 35.7 g/dL [facility] Platelets 130 (L) 145 - 357 [facility] x10(3)/[facility] LABORATORY RDWSD 46.2 (H) 36.0 - [facility] 45.0 [facility] LABORATORY RDWCV 13.2 11.4 - [facility] 13.8 % [facility] MPV 10.8 7.6 - 12.9 [facility] LABORATORY nRBC % Auto 0.0 % [facility] nRBC Abs Auto 0.000 0.000 - [facility] 0.000 [facility] x10(3)/[facility] LABORATORY Specimen Anatomical Collection Method Collection Time Receive d Time (Source) Location / / Volume Laterality Blood 05/18/2022 3:34 AM 3:48 EDT AM EDT Resulting Agency Comment Spec In Lab Edward Rodríguez MD HEMATOLOGY ORDERABLES Performing Organization Address City/State/[place] [address] Heparin (unfractionated) Level (05/18/2022 3:34 AM EDT) P athologist Signature Heparin UFH 0.59 IU/mL [facility] LABORATORY Comment: Heparin (anti-Xa) levels should [...] Summers MD HEMATOLOGY ORDERABLES Performing Organization Address City/[facility]/[place]IP [place] [address] Magnesium (05/17/2022 3:33 AM EDT) athologist Signature Magnesium 0.76 0.69 - 1.07 [facility] mmol/L [facility] Specimen Anatomical Collection Method Collection Time Receive d Time (Source) Location / / Volume Laterality Blood Venous Draw / 05/17/2022 3:33 AM 05/17/20 4:05 Unknown EDT AM EDT Resulting Agency Comment Spec In Lab Dottie Hill APRN CHEMISTRY ORDERABLES Performing Organization Address City/State/Z[place] [address] (ABNORMAL) Basic Metabolic Panel (non-fasting) (05/17/2022 3:33 AM EDT) athologist Signature Glucose Lvl 158 65 - 199 [facility] mg/dL [facility] Comment: Diabetes: >=200 mg/dL plus [...] Organization Address City/State/Z[place] [address] (ABNORMAL) Differential, Automated (05/17/2022 3:33 AM EDT) [facility] gist Method Time Signature Neutrophils % 65.5 % [facility] Neutr Abs (ANC) 6.84 (H) 1.70 - [facility] 6.10 [facility] x10(3)/[facility] LABORATORY Lymphocytes % 19.7 % [facility] Lymphocytes Abs 2.1 0.9 - 3.2 [facility] x10(3)/[facility] LABORATORY Monocytes % 13.1 % [facility]ORY Monocyte Abs 1.4 (H) 0.3 - 0.9 [facility] x10(3)/[facility] LABORATORY Eosinophils % 0.6 % [facility] Eosinophils Abs 0.1 0.0 - 0.4 [facility] x10(3)/[facility] LABORATORY Basophils % 0.6 % [facility] Basophils Abs 0.1 0.0 - 0.1 [facility] x10(3)/[facility] LABORATORY Immature Gran % 0.50 [...] Abs 0.05 (H) 0.00 - 0.04 x10(3)/[facility] LABORATORY Specimen Anatomical Collection Method Collection Time Receive d Time (Source) Location / / Volume Laterality Blood 05/17/2022 3:33 AM 3:53 EDT AM EDT Resulting Agency Comment Spec In Lab Edward Rodríguez MD HEMATOLOGY ORDERABLES Performing Organization Address City/State/Z[place] [address] (ABNORMAL) Hemogram (05/17/2022 3:33 AM EDT) Analysis Performed At Patho logist Time Signature WBC 10.4 (H) 4.0 - 9.5 [facility] x10(3)/[facility] LABORATORY RBC 3.72 (L) 4.58 - [facility] 5.54 [facility] x10(6)/[facility] LABORATORY Hemoglobin 12.0 (L) 13.7 - [facility] 16.5 g/dL [facility] Hematocrit 36.4 (L) 40.5 - [facility] 48.5 % [facility] MCV 97.8 (H) 82.9 - [facility] 93.1 [facility] LABORATORY MCH 32.3 (H) 27.5 - [facility] 32.1 pg [facility] MCHC 33.0 32.0 - [facility] 35.7 g/dL [facility] Platelets 149 145 - 357 [facility] x10(3)/[facility] LABORATORY RDWSD 48.7 (H) 36.0 - [facility] 45.0 [facility] RDWCV 13.5 11.4 - [facility] 13.8 % [facility] MPV 10.6 7.6 - 12.9 [facility] LABORATORY nRBC % Auto 0.0 % [facility]ORY nRBC Abs Auto 0.000 0.000 - [facility] 0.000 [facility] x10(3)/[facility] LABORATORY Specimen Anatomical Collection Method Collection Time Receive d Time (Source) Location / / Volume Laterality Blood 05/17/2022 3:33 AM 3:53 EDT AM EDT Resulting Agency Comment Spec In Lab Edward Rodríguez MD HEMATOLOGY ORDERABLES Performing Organization Address City/State/[place] [address] (ABNORMAL) Urinalysis Microscopic Exam [...] Organization Address City/State/ZIP Code Phon e Number [place] [id number] [address] (ABNORMAL) Urinalysis with reflex Culture (05/16/2022 11:15 PM EDT) Patholo gist Method Time Signature Glucose UA Negative Negative [facility] mg/dL [facility] Protein UA Negative Negative [facility] mg/dL [facility] Bilirubin UA Negative Negative [facility] mg/dL [facility] Comment: Clinical correlation required for [...] [facility] Leukocytes UA Negative Negative [facility] LABORATORY Appearance UA Clear Clear [facility] Spec [place] UA 1.021 1.005 - 1.030 [facility] LAB[facility] Color UA Yellow Yellow [facility] Culture Reflexed No [facility] LAB[facility] Specimen Anatomical Collection Method Collection Time Receive d Time (Source) Location / / Volume Laterality Clean Catch 05/16/2022 11:15 05/16/2022 Urine PM EDT 11:30 PM EDT Resulting Agency Comment Spec In Lab Fito Summers MD URINE ORDERABLES Performing Organization Address City/State/[place] [address] Heparin (unfractionated) Level (05/16/2022 10:59 PM EDT) P athologist Signature Heparin UFH 0.65 IU/mL [facility] LABORATORY Comment: Specimen drawn more than [...] Organization Address City/State/ZIP Code Phon e Number [place] [phone]OS[address] Drive XR Chest One View [...] who have questions please contact the health neurocritical care physician that requested your imaging first. [...] ho have questions please contact the health neurocritical care physician that requested your imaging first. Fito Summers MD IMG DX ORDERABLES EKG 12 Lead (05/16/2022 8:57 PM EDT) Component Value Ref Range Test Analysis Performed Pathologis t Method Time At Signature Ventricular rate 117 BPM MUSE SYSTEM QRS Duration 112 ms MUSE SYSTEM Q-T Interval 346 ms MUSE SYSTEM QTC Calculated 482 ms MUSE SYSTEM (Bezet) Calculated R [place] -48 degrees MUSE SYSTEM Calculated T [place] 111 degrees MUSE SYSTEM INTERPRETATION Atrial fibrillation with rapid ventricular response MUSE SYSTEM Left anterior fascicular block Minimal voltage criteria for LVH, may be normal variant ( Otoe product ) Nonspecific ST and T wave [...] P athologist Signature Heparin UFH 0.53 IU/mL [facility] LABORATORY Comment: Heparin (anti-Xa) levels should [...] Organization Address City/State/[place] [address] ECHOCARDIOGRAM COMPLETE W CONTRAST (05/16/2022 12:49 PM EDT) P athologist Signature EF 28 [facility]ART[facility] SYSTEM Anatomical Region Laterality Modality Cardiac Other Specimen (Source) Anatomical Collection Method Collection Time Re ceived Time Location / / Volume Laterality 05/16/2022 11:22 AM EDT Narrative 05/16/2022 1:54 PM EDT ?[facility] ?[address] ? [place] [address] ?Voice: ?Fax: ? Echocardiogram Report Name: ZAMORAKOKO ?Study Date: 05/16/2022 11:22 AM ? Patient Location: 3WST 0303 B : 1940 ? Height: 67.5 in ? Account: [id number] Age: 81 yrs ? Weight: 176 lb Gender: Male ?BSA: 1.9 m2 Ordering Physician: FITO SUMMERS Referring Physician: MALI FLORIAN Performed By: Jolene Bernard RDCS Exam Location: [facility]. Interpretation Summary Left ventricle is [...] and LV systolic dysfunction are new. Procedure Complete-[id number]. Image enhancement Optiso n was used for [...] note [place] [address] Voice: Fax: Echocardiogram Report Name: KOKO ZAMORA Study Date: 05/2022 11:22 AM Patient Location: [address] [place] [address] : 1940 Height: 67.5 in Account: [id number] Age: 81 yrs Weight: 176 lb Gender: Male BSA: 1.9 m2 Ordering Physician: FITO SUMMERS Referring Physician: MALI FLORIAN Performed By: Jolene Bernard RDCS Exam Location: [facility]. Interpretation Summary Left ventricle is [...] and LV systolic dysfunction are new. Procedure Complete-[id number]. Image enhancement Optiso n was used for [...] (ABNORMAL) Differential, Automated (05/16/2022 3:01 AM EDT) [facility] Method Time Signature Neutrophils % 78.8 % [facility] LABOR[facility]ORY Neutr Abs (ANC) 9.11 (H) 1.70 - [facility] 6.10 [facility] x10(3)/[facility] LABORATORY Lymphocytes % 9.4 % [facility]ORY Lymphocytes Abs 1.1 0.9 - 3.2 [facility] x10(3)/[facility] LABORATORY Monocytes % 10.9 % [facility]OR[facility]ORY Monocyte Abs 1.3 (H) 0.3 - 0.9 [facility] x10(3)/[facility] LABORATORY Eosinophils % 0.0 % [facility] LABOR[facility]ORY Eosinophils Abs 0.0 0.0 - 0.4 [facility] x10(3)/[facility] LABORATORY Basophils % 0.3 % [facility]OR[facility]ORY Basophils Abs 0.0 0.0 - 0.1 [facility] x10(3)/[facility] LABORATORY Immature Gran % 0.60 [...] Abs 0.07 (H) 0.00 - 0.04 x10(3)/[facility] LABORATORY Specimen Anatomical Collection Method Collection Time Receive d Time (Source) Location / / Volume Laterality Blood 05/16/2022 3:01 AM 3:36 EDT AM EDT Resulting Agency Comment Spec In Lab Erin Garza MD HEMATOLOGY ORDERABLES Performing Organization Address City/State/Z[place] [address] (ABNORMAL) Hemogram (05/16/2022 3:01 AM EDT) Analysis Performed At Patho logist Time Signature WBC 11.6 (H) 4.0 - 9.5 [facility] x10(3)/[facility] LABORATORY RBC 3.62 (L) 4.58 - [facility] 5.54 [facility] x10(6)/[facility] LABORATORY Hemoglobin 12.0 (L) 13.7 - [facility] 16.[facility] g/dL [facility] Hematocrit 35.3 (L) 40.5 - [facility] 48.5 % [facility] MCV 97.5 (H) 82.9 - [facility] 93.1 [facility] LABORATORY MCH 33.1 (H) 27.5 - [facility] 32.1 pg [facility] MCHC 34.0 32.0 - [facility] 35.7 g/dL [facility] Platelets 151 145 - 357 [facility] x10(3)/[facility] LABORATORY RDWSD 47.6 (H) 36.0 - [facility] 45.0 [facility] LABORATORY RDWCV 13.3 11.4 - [facility] 13.8 % [facility] MPV 10.5 7.6 - 12.9 [facility] LABORATORY nRBC % Auto 0.0 % [facility] LABORATORY nRBC Abs Auto 0.000 0.000 - IFRAH WHEATLEYXIAO 0.000 [facility] x10(3)/[facility] LABORATORY Specimen Anatomical Collection Method Collection Time Receive d Time (Source) Location / / Volume Laterality Blood 05/16/2022 3:01 AM 2 3:36 EDT AM EDT Resulting Agency Comment Spec In Lab Erin Garza MD HEMATOLOGY ORDERABLES Performing Organization Address City/State/ZIP Code Phon e Number [address] Phosphorus (05/16/2022 3:01 AM EDT) athologist Signature Phosphorus 3.7 2.5 - 4.5 [facility] mg/dL [facility] LABORATORY Specimen Anatomical Collection Method Collection Time Receive d Time (Source) Location / / Volume Laterality Blood 05/16/2022 3:01 AM 2 3:36 EDT AM EDT Resulting Agency Comment Spec In Lab Fito Summers MD CHEMISTRY ORDERABLES Performing Organization Address City/[facility]/ZIP Code Phon e Number [address] Magnesium (05/16/2022 3:01 AM EDT) athologist Signature Magnesium 0.77 0.69 - 1.07 [facility] mmol/L [facility] LABORATORY Specimen Anatomical Collection Method Collection Time Receive d Time (Source) Location / / Volume Laterality Blood 05/16/2022 3:01 AM 2 3:36 EDT AM EDT Resulting Agency Comment Spec In Lab Fito Summers MD CHEMISTRY ORDERABLES Performing Organization Address City/[facility]/[place] [address] (ABNORMAL) Basic Metabolic Panel (non-fasting) (05/16/2022 3:01 AM EDT) P athologist Signature Glucose Lvl 222 (H) 65 - 199 [facility] mg/dL [facility] LABORATORY Comment: Diabetes: >=200 mg/dL plus symp toms BUN 12 10 - 20 mg/dL [facility] LABORATORY Creatinine 0.66 (L) 0.80 [...] Organization Address City/State/[place] [address] (ABNORMAL) BLOOD GAS 2 ARTERIAL (05/15/2022 3:33 PM EDT) Analysis Performed At Patho logist Time Signature pH Art 7.33 (L) 7.35 - [facility] 7.45 [facility] LABORATORY pCO2 Art 41 35 - 45 [facility] mmHg [facility] LABORATORY pO2 Art 131 (H) 85 - 104 [facility] LABORATORY HCO3 Art 21.1 20.0 - [facility] 26.0 [facility] mmol/L [facility] LABORATORY BE Art -4.8 (L) -3.0 - 3.0 [facility] mmol/L [facility] LABORATORY Hgb Blood Gas 13.4 (L) 13.7 - [facility] 16.5 g/dL [facility] LABORATORY O2HB Art 96.9 94.0 - [facility] 97.0 % [facility] LABORATORY COHB Art 1.4 % [place] [...] WB 2.0 0.5 - 2.2 mmol/L [facility] LABORATORY Specimen Anatomical Collection Method Collection Time Receive d Time (Source) Location / / Volume Laterality Blood 05/15/2022 3:33 PM 2 3:[address] Jamel Torre MD CHEMISTRY ORDERABLES Performing Organization Address City/State/[place] [address] (ABNORMAL) BLOOD GAS 2 ARTERIAL (05/15/2022 2:06 PM EDT) Analysis Performed At Patho logist Time Signature pH Art 7.39 7.35 - [facility] 7.45 [facility] LABORATORY pCO2 Art 35 35 - 45 [facility] mmHg [facility] LABORATORY pO2 Art 135 (H) 85 - 104 [facility] LABORATORY HCO3 Art 20.8 20.0 - [facility] 26.0 [facility] mmol/L [facility] LABORATORY BE Art -4.2 (L) -3.0 - 3.0 [facility] mmol/L [facility] LABORATORY Hgb Blood Gas 14.5 13.7 - [facility] 16.5 g/dL [facility] LABORATORY O2HB Art 97.2 (H) 94.0 - [facility] 97.0 % [facility] LABORATORY COHB Art 1.2 % [place] [...] WB 1.5 0.5 - 2.2 mmol/L [facility] LABORATORY Specimen Anatomical Collection Method Collection Time Receive d Time (Source) Location / / Volume Laterality Blood 05/15/2022 2:06 PM 2:[address] Jamel Torre MD CHEMISTRY ORDERABLES Performing Organization Address City/[facility]/[place] [address] (ABNORMAL) Prothrombin Time (05/15/2022 12:30 PM EDT) P athologist Signature PT 12.9 (H) 9.4 - 12.5 [facility] LABORATORY INR 1.1 [facility] [...] Morales DO HEMATOLOGY ORDERABLES Performing Organization Address City/[facility]/[place] [address] (ABNORMAL) APTT (05/15/2022 12:30 [...] Daquan Andrew HEMATOLOGY ORDERABLES Performing Organization Address City/[facility]/ZIP Code Phon e Number [address] Gold Tube HOLD (05/15/2022 12:20 PM EDT) P athologist Signature Gold Hold Sample in [facility]. [facility] LABORATORY Specimen Anatomical Collection Method Collection Time Receive d Time (Source) Location / / Volume Laterality Blood No Charge / 05/15/2022 12:20 05/15/2022 Unknown PM EDT 12:20 PM EDT Lc TRIPP CHEMISTRY ORDERABLES Performing Organization Address City/[facility]/ZIP Code Phon e Number [address] Type and Screen Validity (05/15/2022 12:00 PM EDT) [facility] Method Time Signature T&S only valid [facility] [place] [place] Hosp [facility] at [facility] LABORATORY Comment: This Type and Screen result is only valid at the [facility] [place] [place] Hospital Specimen Anatomical Collection Method Collection Time Receive d Time (Source) Location / / Volume Laterality Blood 05/15/2022 12:00 05/15/2022 PM EDT 12:17 PM EDT Resulting Agency Comment Spec In Lab Lc Dominick Kimberly TRIPP BLOOD BANK ORDERABLES Performing Organization Address City/[facility]/ZIP Code Phon e Number [address] ABORH Recheck Status (05/15/2022 12:00 PM EDT) [facility] gist Method Time Signature ABORH Recheck Order Placed [facility] K [facility] LABORATORY ABORH Type Complete [facility] LABORATORY Specimen Anatomical Collection Method Collection Time Receive d Time (Source) Location / / Volume Laterality Blood 05/15/2022 12:00 05/15/2022 PM EDT 12:17 PM EDT Resulting Agency Comment Spec In Lab Lc Harris PA BLOOD BANK ORDERABLES Performing Organization Address City/[facility]/ZIP [place] [address] CK (05/15/2022 12:00 PM EDT) P athologist Signature CK, Total 87 0 - 200 [facility] unit/L [facility] LABORATORY Specimen Anatomical Collection Method Collection Time Receive d Time (Source) Location / / Volume Laterality Blood Venous Draw / 05/15/2022 12:00 05/15/2022 Unknown PM EDT 12:19 PM EDT Resulting Agency Comment Spec In Lab Fito Summers MD CHEMISTRY ORDERABLES Performing Organization Address City/State/[place] [address] Antibody screen (05/15/2022 12:00 PM EDT) [facility] Method Time Signature Ab Screen Negative [facility] LABORATORY Expires at 05/18/2022 [facility] [id number] on: [facility] LABORATORY Specimen Anatomical Collection Method Collection Time Receive d Time (Source) Location / / Volume Laterality Blood 05/15/2022 12:00 05/15/2022 PM EDT 12:17 PM EDT Resulting Agency Comment Spec In Lab Lc TRIPP BLOOD BANK ORDERABLES Performing Organization Address City/[facility]/[place] [address] ABO/Rh Typing (05/15/2022 12:00 PM EDT) P athologist Signature ABORh Type O Pos [facility] LABORATORY Specimen Anatomical Collection Method Collection Time Receive d Time (Source) Location / / Volume Laterality Blood 05/15/2022 12:00 05/15/2022 PM EDT 12:17 PM EDT Resulting Agency Comment Spec In Lab Lc TRIPP BLOOD BANK ORDERABLES Performing Organization Address City/[facility]/[place] [address] (ABNORMAL) Differential, Automated (05/15/2022 12:00 PM EDT) [facility] Method Time Signature Neutrophils % 79.4 % [facility] LABORATORY Neutr Abs (ANC) 7.49 (H) 1.70 - [facility] 6.10 [facility] x10(3)/[facility] LABORATORY Lymphocytes % 11.3 % [facility] LABORATORY Lymphocytes Abs 1.1 0.9 - 3.2 [facility] x10(3)/[facility] LABORATORY Monocytes % 7.8 % [facility] LABORATORY Monocyte Abs 0.7 0.3 - 0.9 [facility] x10(3)/[facility] LABORATORY Eosinophils % 0.6 % [facility] LABORATORY Eosinophils Abs 0.1 0.0 - 0.4 [facility] x10(3)/[facility] LABORATORY Basophils % 0.6 % [facility] LABORATORY Basophils Abs 0.1 0.0 - 0.1 [facility] x10(3)/[facility] LABORATORY Immature Gran % 0.30 [...] - 0.04 x10(3)/[facility] LABORATORY Specimen Anatomical Collection Method Collection Time Receive d Time (Source) Location / / Volume Laterality Blood 05/15/2022 12:00 05/15/2022 PM EDT 12:19 PM EDT Resulting Agency Comment Spec In Lab Lc TRIPP HEMATOLOGY ORDERABLES Performing Organization Address City/State/ZIP [place] [address] (ABNORMAL) Hemogram (05/15/2022 12:00 PM EDT) Analysis Performed At Patho logist Time Signature WBC 9.4 4.0 - 9.5 [facility] x10(3)/[facility] LABORATORY RBC 4.48 (L) 4.58 - [facility] 5.54 [facility] x10(6)/[facility] LABORATORY Hemoglobin 14.5 13.7 - [facility] 16.5 g/dL [facility] LAB[facility]ATORY Hematocrit 42.4 40.5 - [facility] 48.5 % [facility] LAB[facility] MCV 94.6 (H) 82.9 - [facility] 93.1 [facility] LABORATORY MCH 32.4 (H) 27.5 - [facility] 32.1 pg [facility] LABORATORY MCHC 34.2 32.0 - [facility] 35.7 g/dL [facility] LABORATORY Platelets 209 145 - 357 [facility] x10(3)/[facility] LABORATORY RDWSD 45.9 (H) 36.0 - [facility] 45.0 [facility] LABORATORY RDWCV 13.1 11.4 - [facility] 13.8 % [facility] LABORATORY MPV 10.5 7.6 - 12.9 [facility] LABORATORY nRBC % Auto 0.0 % [facility] LABORATORY nRBC Abs Auto 0.000 0.000 - [facility] 0.000 [facility] x10(3)/[facility] LABORATORY Specimen Anatomical Collection Method Collection Time Receive d Time (Source) Location / / Volume Laterality Blood 05/15/2022 12:00 05/15/2022 PM EDT 12:19 PM EDT Resulting Agency Comment Spec In Lab Lc TRIPP HEMATOLOGY ORDERABLES Performing Organization Address City/State/ZIP [place] [address] (ABNORMAL) Basic Metabolic Panel (non-fasting) (05/15/2022 12:00 PM EDT) P athologist Signature Glucose Lvl 203 (H) 65 - 199 [facility] mg/dL [facility] LABORATORY Comment: Diabetes: >=200 mg/dL plus [...] Organization Address City/State/ZIP [place] [address] documented in this encounter [...] - Reason: Transfer to a Procedural area)1955 ([facility] Unhold - Provider: Admin Adt) [...] - Reason: Transfer to a Procedural area)1955 ([facility] Unhold - Provider: Admin Adt)2131 [...] - Reason: Transfer to a Procedural area)1955 ([facility] Unhold - Provider: Admin Adt) [...] - Reason: Transfer to a Procedural area)1955 ([facility] Unhold - Provider: Admin Adt) [...] - Reason: Transfer to a Procedural area)1955 ([facility] Unhold - Provider: Admin Adt) [...] bisacodyL (Dulcolax) suppository 10 mg 1 751 ([facility] Hold - Provider: Admin Adt - Reason: Transfer to a Procedural area)1955 ([facility] Unhold - Provider: Admin Adt) [...] (porcine) (1,000 units/mL) injection 0-8,000 Units 175 ([facility] Hold - Provider: Admin Adt - Reason: Transfer to a Procedural area)1955 ([facility] Unhold - Provider: Admin Adt) [...] - Reason: Transfer to a Procedural area)1955 ([facility] Unhold - Provider: Admin Adt) [...] - Pr ovider: Emily Sauceda RN) 1750 ([facility] Hold - Provider: Admin Adt - R lexie: Transfer to a Procedural area)1955 ([facility] Unhold - Provider: Admin Adt) [...] (Roxicodone) tablet 10-15 mg(Linked Group 2) 1750 ([facility] Hold - Provider: Admin Adt - Reason: Transfer to a Procedural area)1955 ([facility] Unhold - Provider: Admin Adt) [...] - Reason: Transfer to a Procedural area)1955 ([facility] Unhold - Provider: Admin Adt) [...]
Routine documented in this encounter Care Teams Technology Analyst Relationship Specialty Start Date End Date Bobby Das MD PCP - General 10/02/[address] [place] [address] [place] [phone] documented as of this encounter
--- OUTSIDE RECORDS SUMMARY | 2022-07-31 09:01 | XMS_ITS | Encounter Summary ---
:1940 Author Organization [facility] Address [facility] [place] [address] Care Team Providers Name Role Phone Bobby Das MD Primary Care Provider Reason for Visit - Closed Specialty Diagnoses / Procedures Referred By Contact Refer red To Contact Procedures Bobby Das MD Film Library- Storage Only [address] [place] [id number] Referral ID Status Reason Start Date Expiration Date Visits Requ ested Visits Authorized [id number] Closed 02/23/2021 02/23/2022 1 1 Encounter Details Date Type Department Care Team Description 02/20/2021 Ancillary Procedure Radiology Library at Bobby Almaguer MD [address] [phone] (Rebekah rojas) Social History Tobacco Use Types [...] MD [facility] DR GASTROENTEROLOGY DEPT [place], [place] 0[address] (Wo rk) 09/05/2022 Appointment Cardiology Trinity Reid MD [facility] ER CARDIOLOGY [place], [place] [address] (Wo rk) 09/05/2022 Office Visit Cardiology Trinity Reid MD [facility] ER CARDIOLOGY [place], [place] [address] (Wo rk) documented as of [...] Address City/State/ZIP Code Phon e Number [place], [place] documented in this encounter Visit Diagnoses Not on filedocumented in this encounter Care Teams Stonecutter Assistant Relationship Specialty Start Date End Date Bobby Das MD PCP - General 10/02/[address] [place] [address] [place] [phone] documented as of this encounter
--- OUTSIDE RECORDS SUMMARY | 2022-07-31 09:01 | XMS_ITS | Encounter Summary ---
:1940 Author Organization [facility] [place] [address] Care Team Providers Name Role Phone Bobby Das MD Primary Care Provider Encounter Details Date Type Department Care Team Description 05/15/2022 Ancillary Procedure Radiology Library at [facility], Lavell Butt, [facility] [place] [address] VASCULAR SURGERY [phone] [place] [id number] (Wo rk) Social History Tobacco Use Types [...] [facility] DR GASTROENTEROLOGY DEPT [place], [place] [address] (Wo rk) 09/05/2022 Appointment Cardiology Trinity Reid MD [facility] CARDIOLOGY [place], [place] [address] (Wo rk) 09/05/2022 Office Visit Cardiology Trinity Reid MD [facility] CARDIOLOGY [place], [place] [address] (Wo rk) documented as of [...] Organization Address City/State/ZIP Code Phon e Number [place], [place] documented in this encounter Visit Diagnoses Not on filedocumented in this encounter Care Teams Vest Tailor Relationship Specialty Start Date End Date Bobby Das MD PCP - General 10/02/[address] [place] [address] [place] [phone] documented as of this encounter
--- OUTSIDE RECORDS SUMMARY | 2022-07-31 09:01 | XMS_ITS | Encounter Summary ---
:1940 Author Organization [place] [address] Care Team Providers Name Role Phone Bobby Das MD Primary Care Provider Reason for Referral Diagnostic Test (Routine) - Closed Specialty Diagnoses / Procedures Referred By Contact Refer red To Contact Radiology Diagnoses Compression fracture of T9 vertebra, initial encounter Alphonso Esquivel, DO [facility] Interventionl Rad Procedures IR Vertebroplasty Thoracic Single Level [facility] [place] [address] [place] [address] Referral ID Status Reason Start Date Expiration Date Visits V isits Requested Authorized [id number] Closed Specialty 10/13/2020 04/13/2022 1 1 Service Requested Encounter Details Date Type Department Care Team Description 10/13/2020 Orders Only Radiology at [facility] Alphonso Esquivel, Compression fracture [facility] DO of T9 vertebra, Drive [facility] [place] [place] [address] DIAGNOSTIC RADIOLOGY [place], [place] [address] Social History Tobacco Use Types [...] [facility] DR GASTROENTEROLOGY DEPT [place], [place] [address] (Wo rk) 09/05/2022 Appointment Cardiology Trinity Reid MD [facility] CARDIOLOGY [place], [place] [address] (Wo rk) 09/05/2022 Office Visit Cardiology Trinity Reid MD [facility] CARDIOLOGY [place], [place] 0[address] (Wo rk) documented as of [...] made and a 13g a introducer needle (Whitetruffle) was advanced through the right pedicle and t o the ??T9 vertebral body during an intermittent fluoroscopic guidance. The Whitetruffle biopsy cannula was advanced through the introducer [...] was made and a 13ga introducer needle (myJambi) was advanced through the left pedicle and [...] below. ? Electronically signed by: Matt Valverde [facility] ([phone]), at 10/25/2020 11:02 AM Procedure Note Matt [...] made and a 13g a introducer needle (Whitetruffle) was advanced through the right pedicle and t o the T9 vertebral body during an intermittent fluoroscopic guidance. The Whitetruffle biopsy cannula was advanced through the introducer [...] was made and a 13ga introducer needle (myJambi) was advanced through the left pedicle and [...] number below. Electronically signed by: Matt Valverde [facility] ([phone]), at 10/25/2020 11:02 AM Alphonso Esquivel DO IMG IR ORDERABLES Prothrombin Time (10/25/2020 6:35 AM EST) athologist Signature PT 10.8 9.4 - 12.5 [facility] LABORATORY INR 1.0 [facility] [...] Organization Address City/State/[place] [address] Platelet count (10/25/2020 6:35 AM EST) athologist Signature Platelets 192 145 - 357 [facility] x10(3)/[facility] LABORATORY Plat Immature 2.6 0.0 - 7.4 [facility] % % [facility] LABORATORY Comment: Limitation of the Immature Platelet Frac tion (IPF)-May be less reliable when the platelet count is less than 83s737/u L due to statistical imprecision. The IPF [...] in a decreased state of production. References: [employer] The Clinical Value of the Immature Platelet Fraction (IPF) in Cell Recovery Document Number 10-1143 04/2011 [employer] The Role of the Imm ature [...] Organization Address City/State/[place] [address] documented in this encounter Visit Diagnoses Diagnosis Compression fracture of T9 vertebra, ini tial encounter Compression fracture of T9 vertebra, ini tial encounter documented in this encounter Care Teams Certified Welder Relationship Specialty Start Date End Date Bobby Das MD PCP - General 10/02/[address] [place] [address] [place] [phone] documented as of this encounter
--- OUTSIDE RECORDS SUMMARY | 2022-07-31 09:01 | XMS_ITS | Encounter Summary ---
:1940 Author Organization [facility] [place] [address] Care Team Providers Name Role Phone Bobby Das MD Primary Care Provider Encounter Details Date Type Department Care Team Description 08/06/2020 Ancillary Procedure Radiology at [facility] Amy Grimaldo [address] [place] [address] [address] [phone] NEUROSURGERY-N [place], [place] [address] Social History Tobacco Use Types [...] MD [facility] GASTROENTEROLOGY DEPT [place], [place] [address] (Wo rk) 09/05/2022 Appointment Cardiology Trinity Reid MD [facility] CARDIOLOGY [place], [place] [address] (Wo rk) 09/05/2022 Office Visit Cardiology Trinity Reid MD [facility] CARDIOLOGY [place], [place] [address] (Wo rk) documented as of [...] Organization Address City/State/ZIP Code Phon e Number [place], [place] documented in this encounter Visit Diagnoses Not on filedocumented in this encounter Care Teams Cooling Room Attendant Relationship Specialty Start Date End Date Bobby Das MD PCP - General 10/02/[address] [place] [address] [place] [phone] documented as of this encounter
--- OUTSIDE RECORDS SUMMARY | 2022-07-31 09:01 | XMS_ITS | Encounter Summary ---
:1940 Author Organization [facility] Address [facility] [place] [address] Care Team Providers Name Role Phone Bobby Das MD Primary Care Provider Reason for Visit - Closed Specialty Diagnoses / Procedures Referred By Contact Refer red To Contact Procedures Bobby Das MD Film Library- Storage Only MR [facility] [place] [address] Referral ID Status Reason Start Date Expiration Date Visits Requ ested Visits Authorized [id number] Closed 02/23/2021 02/23/2022 1 1 Encounter Details Date Type Department Care Team Description 03/16/2020 Ancillary Procedure Radiology Library at Bobby Almaguer MD [address] [phone] (Rebekah rojas) Social History Tobacco Use Types [...] Collins MD [facility] GASTROENTEROLOGY DEPT [place], [place] [address] (Wo rk) 09/05/2022 Appointment Cardiology Trinity Reid MD [facility] ER CARDIOLOGY [place], [place] [address] (Wo rk) 09/05/2022 Office Visit Cardiology Trinity Reid MD [facility] ER CARDIOLOGY [place], [place] [address] (Wo rk) documented as of [...] Organization Address City/State/ZIP Code Phon e Number [place], [place] documented in this encounter Visit Diagnoses Not on filedocumented in this encounter Care Teams Fashion Artist Relationship Specialty Start Date End Date Bobby Das MD PCP - General 10/02/[address] [place] [address] [place] [phone] documented as of this encounter
--- OUTSIDE RECORDS SUMMARY | 2022-07-31 09:01 | XMS_ITS | Encounter Summary ---
:1940 Author Organization [facility] [place] [address] Care Team Providers Name Role Phone Bobby Das MD Primary Care Provider Reason for Referral Diagnostic Test (Routine) - Closed Specialty Diagnoses / Procedures Referred By Contact Refer red To Contact Radiology Diagnoses Compression fracture of T9 vertebra, initial encounter Alphonso Esquivel DO [facility] Interventionl Rad Procedures IR Vertebroplasty Thoracic [facility] [place] [address] [place] [address] Referral ID Status Reason Start Date Expiration Date Visits V isits Requested Authorized [id number] Closed Specialty 10/13/2020 04/13/2022 1 1 Service Requested Reason for Visit Diagnostic Test (Routine) - Closed Specialty Diagnoses / Procedures Referred By Contact Refer red To Contact Radiology Diagnoses Compression fracture of T9 vertebra, initial encounter Alphonso Esquivel DO [facility] Interventionl Rad Procedures IR Vertebroplasty Thoracic [facility] [place] [address] [place] [address] Referral ID Status Reason Start Date Expiration Date Visits V isits Requested Authorized [id number] Closed Specialty 10/13/2020 04/13/2022 1 1 Service Requested Encounter Details Date Type Department Care Team Description 10/25/2020 Hospital Encounter Radiology at [facility] Esquivel, Alphonso R, Compression fracture [facility] DO of T9 vertebra, [facility] initial encounter [place], [place] [address] DIAGNOSTIC [phone] [place] [address] Social History Tobacco Use Types Packs/Day Years [...] Vargas RN - 10/25/2020 9:13 AM EST [facility] Discharge Instructions for Vertebroplasty Your [...] is during regular office hours, please call [phone]. If it is after regular office hours, oron weekends or holidays, please call [phone] and ask to speak to the Scorekeeper on callfor Interventional Radiology. XXX You have [...] of : 1940 AGE: 80 y.o. Address: [address] [place] [phone] (home) Mobile: No relevant phone numbers on file. Referring Provider: Alphonso Esquivel REASON FOR VISIT: Order Questions Answers Where will study be performed? [facility] Radiology [120] Is the patient [...] MD [facility] GASTROENTEROLOGY DEPT [place], [place] [address] (Wo rk) 09/05/2022 Appointment Cardiology Trinity Reid MD [facility] CARDIOLOGY [place], [place] [address] (Wo rk) 09/05/2022 Office Visit Cardiology Trinity Reid MD [facility] CARDIOLOGY [place], [place] [address] (Wo rk) documented as of [...] made and a 13g a introducer needle ([employer]) was advanced through the right pedicle and t o the ??T9 vertebral body during an intermittent fluoroscopic guidance. The [employer] biopsy cannula was advanced through the introducer [...] was made and a 13ga introducer needle ([employer]) was advanced through the left pedicle and [...] the interservice administration of fentanyl and [facility] continuous monitoring of blood pressure, oxygenation [...] made and a 13g a introducer needle ([employer]) was advanced through the right pedicle and t o the T9 vertebral body during an intermittent fluoroscopic guidance. The [place] biopsy cannula was advanced through the introducer [...] was made and a 13ga introducer needle ([employer]) was advanced through the left pedicle and [...] Component Value Ref Test Analysis Performed At [facility] Method Time Signature Surgical [id number] ? Location: [address] [place] [address] Pathology [place] Report The signing pathologist has (i) examined [...] Bone & Soft Tissue Pathologist Performed at: ??-[facility] Dept. of Pathology, [place], [place] DISCUSSION I see no neoplastic process [...] DO PATHOLOGY/CYTOLOGY ORDERABLE S Performing Organization Address City/[facility]/[place] [address] Specimen to Pathology (10/25/2020 8:26 AM EST) Specimen Anatomical Collection Method Collection Time Receive d Time (Source) Location / / Volume Laterality AP Specimen 10/25/2020 8:26 AM 0 8:26 EST AM EST Narrative [facility] - 10/25/2020 8:26 AM EST Specimen requisition ordered. ??Separate Pathology report to follow Alphonso Esquivel DO PATHOLOGY/CYTOLOGY ORDERABLE S Performing Organization Address City/[facility] Code Phon e Number [address] documented in this encounter [...] Procedure) documented in this encounter Care Teams Platform Architect Relationship Specialty Start Date End Date Bobby Das MD PCP - General 10/02/[address] [place] [address] [place] [address] documented as of this encounter
--- OUTSIDE RECORDS SUMMARY | 2022-07-31 09:01 | XMS_ITS | Encounter Summary ---
:1940 [place] [address] Care Team Providers Name Role Phone Bobby Das MD Primary Care Provider Reason for Visit Reason Comments Left Leg Pain Auth/Cert Specialty Diagnoses / Procedures Referred By Contact Refer red To Contact Diagnoses Limb ischemia LLE thrombus Fito Summers MD [facility] [place] [address] Referral ID Status Reason Start Date Expiration Date Visits Requ ested Visits Authorized [id number] 1 1 Encounter Details Date Type Department Care Team Description 05/15/2022 Surgery Main Operating Room Savana Summers se, MD [facility], [facility] FEMOROPOSANG, [facility] VASCULAR SURG J[place] [address] LEG INCISION ([place] [address] 19.48) [phone] Social History Tobacco Use Types Packs/Day Years [...] Afib who presents in transfer from [facility] with acute limb ischemia of the [...] emergently went to the OR for L ORTHOTIC FITTER transverse arteriotomy and primary repair, thromboembolectomy of L SFA/PFA/ORTHOTIC FITTER, reperfusion venous drainage for 250 cc, and [...] Discharge Condition: Good Discharge to: Home with [facility] [address] [address] Future Appointments and Orders Future Appointments and Orders Future Appointments Provider Department Dept Phone 05/23/2022 10:30 AM Loretta Cohen MD Dermatology at [facility] Arrive at: Informatics Scientist [address] [place] [address] 06/07/2022 1:30 PM Gail Rae APRN Vascular Surgery at [facility] Arrive at: Informatics Scientist Area [phone] 06/13/2022 7:30 AM Edson Lagos [place] Vascular Lab at [facility] Arrive at: Informatics Scientist Area [phone] 06/13/2022 8:00 AM Fito Summers MD Vascular Surgery at [facility] Arrive at: Informatics Scientist Area 3V [phone] 06/13/2022 10:00 AM Alan Reid MD Cardiology at [facility] Arrive at: Informatics Scientist Area 4A [phone] Future Orders Complete By Expires Ziopatch 48 Hrs-15 Days [[id number] CPT(R)] 05/21/2022 11/20/2022 Process Instructions: Scheduling Instructions: Comments: Questions: Does the patient have a pacemaker? If yes provide HI/LO settings: Apply for 7 or 14 days?: 7 Where will study be performed?: [facility] JOSSELYN, legs, multiple levels [VAS8 Custom] 06/21/2022 (Approximate) 12/21/2022 Process Instructions: There is no in-house vascular labor relations consultant available on weeknights (5pm-8am), weekends, or holidays. IF THIS IS A REQUEST FOR AN EMERGENT STUDY DURING THOSE HOURS, please have the senior provider responsible for the patient page the Vascular Surgery Fellow/Senior Resident insurance verification specialist to discuss options. Scheduling Instructions: Questions: Indication for study/signs & symptoms: ALI s/p L fem cutdown with thromboembolectomy Question to be answered: Perfusion to feet? Please check toe pressure Preferred location?: [facility] Referral to Cardiology [REF12 Custom] As [...] for admission to Home Health. [address] [facility] [address] (home) Date of : 1940 Inpatient DOCUMENTATION FOR VNA SERVICES (INCLUDING THOSE PATIENTS WITH MEDICARE COVERAGE REQUIRING HOME VNA SERVICES AND/OR HOSPICE SERVICES) PATIENT'S LOCATION: Koko Zamora [address] [facility] [address] (home) Cell: No relevant phone numbers on file. Cooking Teacher's Name: Koko In discussion with the attending physician, it is certified that this patient is under their care and that they, or a Nurse Practitioner,Clinical Nurse specialist or Physician Online Trader who is working directly with them, had [...] for managing ADL's. HOME HEALTH CARE AGENCY: [facility] [address] [place] [id number] Start of care: Within 24 to 48 [...] from this patient'sPCP: Bobby Das MD [address] [place] [address] / [place] [address] All VNA agencies [...] For any problems or questions please call [phone] For issues on weeknights after 5pm and weekends please call [phone] and ask for the Vascular Fellow insurance verification specialist. JOSEE Santiago Vascular Surgery 05/21/2022 documented [...] For any problems or questions please call [phone] For issues on weeknights after 5pm and weekends please call [phone] and ask for the Vascular Fellow insurance verification specialist. documented in this encounter Medications at [...] 04/12/20 21 (FLONASE) 50 mcg/actuation Nare route [place], Suspension daily as needed. fluorouraciL (EFUDEX) 5 [...] Afib who presents in transfer from [facility] with acute limb ischemia of the [...] status, full code. JOSEE Santiago 05/21/2022 Pager: [phone] PaBrannon gamino, PT - 05/21/2022 10:35 AM [...] plan as stated. Time IN / OUT: 0923-8615 Total Minutes, Physical Therapy: 25 Billing Code: 2 TA Brannon Isaacs DPT Pager: [phone] Physical Therapy Inpatient Rehabilitation Department [place] Jean [...] 04/17/2021 in Pain and Spine Center at [facility] Weight 79.8 kg (175 lb 14.8 oz) [...] and plan of care per Dr. Mcnamara (fingerprint clerk). Please refer to her note above [...] ischemia (thromboembolic) and he is a senior living smoker (1/2 ppd, recommend nicotine patch). His [...] 04/17/2021 in [facility] Spine Center at [facility] Weight 79.8 kg (175 lb 14.8 oz) [...] findings andplan of care per Dr. Mcnamara (fingerprint clerk). Please refer to her note above [...] a mitral repair in 2000 (not at [facility]) with no CAD at that time. Currently, [...] AF and the first documented HR at [facility] was 125 bpm (presented to an an [...] Afib who presents in transfer from [facility] with acute limb ischemia of the [...] management following Dottie Hill APRN 05/20/2022 Pager: [phone] Laney Atkins RN - 05/20/2022 1:14 AM EDT Pt Koko transferred to room from [facility]. A&Ox4, oriented to room and call boo. Masimo and telemetry placed. In agreement with assessment as documented this evening by Nuris ASHLEY. No complaints at this time. Pt aware of NPO status and plan for cardiac cath in AM. Urinal provided. Resting comfortably in bed. Nuris Lester RN - 05/20/2022 1:09 AM EDT Pt. Transferred to [facility]. RN accompanied patient to floor and handed off to [facility] RN Dottie Hill APRN - 05/19/2022 10:02 AM EDT Vascular Surgery Progress Note Koko Zamora is a 81 y.o. male with w new onset Afib who presents in transfer from [facility] with acute limb ischemia of the [...] management following Dottie Hill APRN 05/19/2022 Pager: [phone] Emily Sauceda RN - 05/19/2022 6:28 AM EDT OUTCOME EVALUATION NOTE: OUTCOME SUMMARY: Patient AOx4, VSS on RA. Afib on tele. HR controlled w/ PRN metop, given x2. Denies CP, SOB, n/v. See flowsheets for NVC. Dressings to LLE CDI, prevena W[place] to groin intact. Voiding to urinal. LBM SPAR MACHINE OPERATOR HELPER, patient stating he will maybe try the [...] adequately without difficulty to bedside urinal. LBM SPAR MACHINE OPERATOR HELPER. Up to chair this AM with nursing staff. Worked with PT, tolerated well. Diet changed to regular at 1800.Plan is for cardiac cath on Friday. PLAN MOVING FORWARD: Bleeding precautions Pain management neurovascular checks PT/OT laborer demolition INDIVIDUALIZED FALL PREVENTION INTERVENTIONS: Patient-specific fall risk [...] Afib who presents in transfer from [facility] with acute limb ischemia of the [...] mL Intravenous BID ??? PHENobarbitaL 0.12 mg/kg/dose (Pritchett) Oral BID ??? thiamine 100 mg Oral [...] management following Dottie Hill APRN 05/18/2022 Pager: [phone] Brannon Isaacs, PT - 05/18/2022 10:00 AM [...] Chisholm MD [facility] INTERVENTIONL RAD ??? PRO EMBLC/THRMBC FEMORAL POPLITEAL AORTO-ILIAC ARTERY Left 05/15/2022 EMBOLECTOMY OR THROMBECTOMY, FEMOROPOPLITEAL, AORTOILIAC ARTERY BY LEG INCISION (WRVU 19.48) performed by Fito Summers MD at [facility] MAIN OR Social History: Pt [...] in this evaluation. Time IN / OUT: 7843-3940 Total Minutes, Physical Therapy: 30 Billing Code: Basilio Isaacs, PT Pager: [phone] Physical Therapy Inpatient Rehabilitation Department Emily Sauceda RN - 05/18/2022 4:34 AM EDT OUTCOME EVALUATION NOTE: OUTCOME SUMMARY: Patient AOx4, VSS on 2LNC. Afib on tele. HR above 120, MD aware, PRN IV metop given x1, HR returned to 90's-low 100's. Denies CP, SOB, n/v. See flowsheets for NVC. Dressings to LLE CDI, prevena WV to groin intact. Voiding to urinal. LBM SPAR MACHINE OPERATOR HELPER. Heparin gtt therapeutic. Pain controlled. Patient sleeping [...] adequately without difficulty to bedside urinal. LBM SPAR MACHINE OPERATOR HELPER. Patient not OOB this shift. Currently NPO awaitingprocedure in seed laboratory technician. PLAN MOVING FORWARD: Bleeding precautions Pain management neurovascular checks PT/OT NPO for seed laboratory technician INDIVIDUALIZED FALL PREVENTION INTERVENTIONS: Patient-specific [...] Emergency Department as a transfer from [facility] with left lower extremity limb ischemia. He went to [facility] and was startedon heparin and transferred to [facility] for evaluation by vascular surgery with subsequent [...] he will will be going to the seed laboratory technician for evaluation. Will defer PT eval at present but will see as ordered post cardiac catheritizaton. Social Hx:Pt lives with his Ursula in [place], [place] in a 2 level home in [...] WBAT LLE LISBET HERMAN PT Pager # [phone] In-Pt Rehab Medicine Dottie Hill APRN - 05/17/2022 7:42 AM EDT Vascular Surgery Progress Note Koko Zamora is a 81 y.o. male with w new onset Afib who presents in transfer from [facility] with acute limb ischemia of the [...] mL Intravenous BID ??? PHENobarbitaL 0.24 mg/kg/dose (Pritchett) Oral BID Followed by ??? [START ON 05/18/2022] PHENobarbitaL 0.12 mg/kg/dose (Pritchett) Oral BID ??? thiamine 100 mg Oral [...] management following Dottie Hill APRN 05/17/2022 Pager: [phone] Sary Dos Santos, RN - 05/17/2022 12:16 [...] Afib who presents in transfer from [facility] with acute limb ischemia of the [...] mL Intravenous BID ??? PHENobarbitaL 0.48 mg/kg/dose (Pritchett) Oral BID Followed by ??? [START ON 05/17/2022] PHENobarbitaL 0.24 mg/kg/dose (Pritchett) Oral BID Followed by ??? [START ON 05/18/2022] PHENobarbitaL 0.12 mg/kg/dose (Pritchett) Oral BID ??? thiamine 100 mg Oral [...] management following Edward Rodríguez MD 05/16/2022 Pager: [phone] Sary Dos Santos RN - 05/16/2022 12:52 [...] 2129 Hand off to DION Ramirez 3 [place] documented in this encounter H&P Notes Kerry [...] Afib who presents in transfer from [facility] with acute limb ischemia of the [...] Chisholm MD [facility] INTERVENTIONL RAD Social Hx: Social [...] Refill ??? fluticasone propionate (FLONASE) 50 mcg/actuation [place], Suspension as needed. ??? fluorouraciL (EFUDEX) 5 [...] and consented. Tim Chicas MD 05/15/2022 Pager: [phone] documented in this encounter ED Notes Lc Harris PA - 05/15/2022 1:20 PM EDT ED Provider Note HPI: Koko Zamora is a 81 y.o. male with history of atrial fibrillation not on anticoagulation, and GI bleeding who presents to the Emergency Department as a transfer from [facility] with left lower extremity limb ischemia. Patient says that the symptoms started roughly 630 this morning when he developed severe pain in his left lower extremity. He went to [facility] and was started on heparin and transferred to [facility] for evaluation by vascular surgery. Review of [...] src: Oral SpO2: 94 % O2 Device: [place] O2 Flow Rate (L/min): 2 L/min Physical [...] lower extremity earlier today and went to [facility] where it was determined that he had ischemia of the left lower extremity. Vascular surgery [facility] was contacted and he was transferred [...] orders before pt. Arrival. Pt. Arrived at [facility] by EMS at 1150, vascular team at [...] an outpatient cardiac rehabilitation program at [facility] was discussed. Patient agrees to a referral to this program. Timing will depend on his recovery from Vascular surgery. He is going home w/VNA PT. I gave him the brochure for the program at [facility] for future reference. Care Management Discharge [...] information for follow-up [facility], [place] [address] [place] [address] Transportation: family or friend will provide Functional [...] Type: *No Product type* / Secondary Insurance: [facility] Prescription Coverage: Yes This plan was formulated with input from patient and team. All are in agreement with plan. RS [facility] with [facility] - for initial IMM. Shawn (Satish) DION López RN/CM - Cellphone: [phone] Pager: [phone] Covering Service RN/CM Plan of Care - [...] catheterization, transferred in hospital bed accompanied by Trader RN, remains on telemetry monitoring. Heparin gtt [...] Type: *No Product type* / Secondary Insurance: [facility] Last Physical Therapy Recommendation: home with home health, home with supervision with None Last Occupational Therapy Recommendation: with Plan for discharge is: Home w/ Services Outpatient Agency/Support Group Needs: None Home Health Services: Registered Nurse, Physical Therapy, Occupational Therapy Agency Referrals: I have met with the patient to: ?? discuss discharge planning needs. ?? provide the [facility], Office of Care Management letter from the Slide Fasteners Inspector pertaining to rehab referrals. ?? provide a letter describing our affiliations within the [facility] and educate about their right to choose where referrals are sent. ?? provide a list of Home Health Agencies / Durable Medical Equipment vendors which serve their preferred geographic area. ?? provided patient with [facility] Star Quality Rating handout. They have requested referrals to: [facility] [address] [place] [address] Note routed to a Wheelabrator Operator who will communicate referrals to facilities and provide any required information. Transportation: family or friend will provide Barriers to discharge: None Plan going forward: Patient is going for a cardiac cath today and plan will come from there. Patientwas recently seen by PT and they recommend VNA at time of discharge. [facility] was routed and pendedat this time. Care Management will continue to follow and assist with discharge planning and coordination of care as indicated. Anticipated Date of Discharge: 05/21/2022 Nataly RICHMOND RN Phone: [phone] Pager: [phone] Plan of Care - Laney Atkins RN [...] included. [facility] [place] [address] [address] INPATIENT CARDIOLOGY CONSULT NOTE Date of Consultation: 05/17/2022 Admit Date: 05/15/2022 Hospital Day 2 days Reason for Consult: New afib Active Problems: Active Hospital Problems Diagnosis Limb ischemia Resolved Hospital Problems No resolved problems to display. HPI: Koko Zamora is a 81 y.o. male with a PMHx significant for MVP (s/p MV repair 2000), tobacco use, HLD, who presented to [facility] from OSH on 05/15 with acute limb ischemia of LLE and was found to be in atrial fibrillation. Patient had sudden onset LLE pain on 05/15 and presented to [facility], where he was started on heparin and transferred to [facility]. Upon arrival to [facility], patient was in atrial fib with RVR [...] Marshall MD [facility] INTERVENTIONL RAD IR VERTEBROPLASTY LUMBAR MULTIPLE LEVELS 07/20/2019 IR Vertebroplasty Lumbar Multiple Levels 07/20/2019 Bobby Marshall MD [facility] INTERVENTIONL RAD IR VERTEBROPLASTY THORACIC SINGLE LEVEL 10/25/2020 IR Vertebroplasty Thoracic Single Level 10/25/2020 Matt Chisholm MD [facility] INTERVENTIONL RAD PRO EMBLC/THRMBC FEMORAL POPLITEAL AORTO-ILIAC ARTERY Left 05/15/2022 EMBOLECTOMY OR THROMBECTOMY, FEMOROPOPLITEAL, AORTOILIAC ARTERY BY LEG INCISION (WRVU 19.48) performed by Fito Summers MD at [facility] MAIN OR Allergies Allergen Reactions Aspirin Other (See Comments) GI bleed Out-Patient Medications: Medications Prior to Admission Medication Sig Dispense Refill Last Dose fluorouraciL (EFUDEX) 5 % Cream daily. CRESTOR 40 mg Tablet Take 40 mg by mouth daily. fluticasone propionate (FLONASE) 50 mcg/actuation [place], Suspension as needed. ascorbic acid, vitamin C, [...] 5 mL Intravenous BID PHENobarbitaL 0.24 mg/kg/dose (Pritchett) Oral BID Followed by [START ON 05/18/2022] PHENobarbitaL 0.12 mg/kg/dose (Pritchett) Oral BID thiamine 100 mg Oral Daily folic acid 1,000 mcg Oral Daily multivitamin with minerals 1 tablet Oral Daily heparin (porcine) infusion 1,200 Units/hr (05/17/22 9454) Family History: No family history on file. [...] 04/17/2021 in [facility] Sp[facility] at [facility] Weight 79.8 kg (175 lb 14.8 oz) [...] continue to follow Anne-Marie Larson MD Pager [phone] Clinic: [phone] 05/17/22 6:22 PM Initial Assessments - Ifrah [...] spouse would be surrogate decision maker per [place] surrogate decision making law. (Only good for 180 days) Any patient receiving care at [facility] must abide by [place] law. The hierarchy for surrogate decision making [...] (i) The agent with financial power of corporate attorney or a conservator appointed in accordance [...] raised toilet seat Home Address confirmed as: [address] [place] [address] Social & Family Supports: All names listed below confirmed with patient as Incorrect. Will notify toni to correct. Wifes address is same as and phone is [phone]. Extended Emergency Contact Information Primary Emergency Contact: Ursula Zamora Address: [address] [place] [address] [address] [place] [address] [place] [facility] Relation: Spouse Current Care Provided [...] Type: *No Product type* / Secondary Insurance: [facility] Prescription Coverage: Yes Preferred Pharmacy: [id number] - [place], [place] - [address] [facility] [address] [facility] [address] [id number] - [place], [place] - [address] [facility] [address] [facility] [address] [place] Status: Patient is a : unable to assess Primary Care Provider: Bobby Das MD [phone] Patient/Caregiver Goals of Treatment: to walk again Potential Needs for Transition of Care: none noted per 05/16 IDR Transportation: family will provide Transportation Anticipated: family or friend will provide Concerns to be Addressed: no discharge needs identified Assessment: Patient is admitted to vascular surg service for left lower extremity limb ischemia Plan: Per PT OT recommendations . Has used [employer] in the past. A member of the Care Management team will continue to monitor progress, follow for continuity of care and assist with transition of care planning. Ifrah Bell RN BSN Training Program AssistantWet End Helper of Care Management Pager [phone] Brief Op Note - Erin Garza MD - 05/15/2022 5:04 PM EDT Brief Operative Note Patient Name: Koko Zamora : [id number] MR#: [id number] Case Date: 05/15/2022 Surgeon: Surgeon(s) and Role: [...] Garza MD - 05/15/2022 2:08 PM EDT [facility] Operative Note Patient Name: Koko Zamora : [id number] MR#: [id number] Case Date: 05/15/2022 Surgeon: Surgeon(s) and Role: [...] Collins MD [facility] GASTROENTEROLOGY DEPT [place], [place] [address] (Wo rk) 09/05/2022 Appointment Cardiology Trinity Reid MD [facility] CARDIOLOGY [place], [place] [address] (Wo rk) 09/05/2022 Office Visit Cardiology Trinity Reid MD [facility] CARDIOLOGY [place], [place] [address] (Wo rk) Scheduled Referrals Name [...] Component Value Ref Test Analysis Performed At [facility] Range Method Time Signature VB Text Department: Vascular Surgery Lab VASCUBASE Report Patient: [id number] (KOKO ZAMORA) CPT: 14284 Referring Physician: FITO SUMMERS ?? Phone: Indications: s/p L ORTHOTIC FITTER endart. Diabetes mellitus: no Findings: Right ?Pressure [...] athologist Signature Heparin UFH 0.42 IU/mL [facility] [...] Organization Address City/State/[place] [address] Differential, Automated (05/21/2022 6:15 AM EDT) P athologist Signature Neutrophils % 58.8 % [facility] LABORATORY Neutr Abs (ANC) 3.97 1.70 - [facility] 6.10 [facility] x10(3[facility] LAB[facility] Lymphocytes % 25.2 % [facility] Lymphocytes Abs 1.7 0.9 - 3.2 [facility] x10(3)/[facility] LABORATORY Monocytes % 12.9 % [facility] Monocyte Abs 0.9 0.3 - 0.9 [facility] x10(3)/[facility] LABORATORY Eosinophils % 2.1 % [facility] Eosinophils Abs 0.1 0.0 - 0.4 [facility] x10(3)/[facility] LABORATORY Basophils % 0.4 % [facility] LABOR[facility] Basophils Abs 0.0 0.0 - 0.1 [facility] x10(3)[facility] LABORATORY Immature Gran % 0.60 % [...] Rain Gran Abs 0.04 0.00 - 0.04 x10(3)/[facility] Y [facility] LABORATORY Specimen Anatomical Collection Method Collection Time Receive d Time (Source) Location / / Volume Laterality Blood 05/21/2022 6:15 AM 2 6:38 EDT AM EDT Resulting Agency Comment Spec In Lab Edward Rodríguez MD HEMATOLOGY ORDERABLES Performing Organization Address City/State/[place] [address] (ABNORMAL) Hemogram (05/21/2022 6:15 AM EDT) [facility] gist Method Time Signature WBC 6.8 4.0 - 9.5 [facility] x10(3)/[facility] LABORATORY RBC 3.59 (L) 4.58 - [facility] 5.54 [facility] x10(6[facility] LAB[facility]ATORY Hemoglobin 11.8 (L) 13.7 - [facility] 16.5 g/dL [facility] LABOR[facility]ORY Hematocrit 34.5 (L) 40.5 - [facility] 48.5 % [facility] MCV 96.1 (H) 82.9 - [facility] 93.[address] [facility] LABORATORY MCH 32.9 (H) 27.5 - [facility] 32.1 pg [facility] LABORATORY MCHC 34.2 32.0 - [facility] 35.7 g/dL [facility] LABORATORY Platelets 198 145 - 357 [facility] x10(3)/[facility] LABORATORY RDWSD 44.9 36.0 - [facility] 45.[address] [facility] LABORATORY RDWCV 12.6 11.4 - [facility] 13.8 % [facility] LABORATORY MPV 10.0 7.6 - 12.9 [facility] LABORATORY nRBC % Auto 0.3 % [facility] LABORATORY nRBC Abs Auto 0.020 (H) 0.000 - [facility] 0.000 [facility] x10(3)/[facility] LABORATORY Specimen Anatomical Collection Method Collection Time Receive d Time (Source) Location / / Volume Laterality Blood 05/21/2022 6:15 AM 2 6:38 EDT AM EDT Resulting Agency Comment Spec In Lab Edward Rodríguez MD HEMATOLOGY ORDERABLES Performing Organization Address City/State/[place] [address] EKG 12 Lead (05/20/2022 7:04 PM EDT) Component Value Ref Range Test Analysis Performed Pathologis t Method Time At Signature Ventricular rate 101 BPM MUSE SYSTEM QRS Duration 116 ms MUSE SYSTEM Q-T Interval 378 ms MUSE SYSTEM QTC Calculated 490 ms MUSE SYSTEM (Bezet) Calculated R [place] -53 degrees MUSE SYSTEM Calculated T [place] 101 degrees MUSE SYSTEM INTERPRETATION Atrial fibrillation [...] Laterality Volume Narrative 05/20/2022 7:09 PM EDT ?[facility] ? Cardiac Cathete rization/Intervention Report ? Patient Name: Koko Zamora. ? Procedure Date: 05/20/2022 ? A #: [id number] ? Primary Physician: Abundio Servin ? Case #: [id number] ? File Name: [id number] ? Catheterization Order Number: [id number] ? [facility] ? Final Report [place], [place] ? Patient Name: ? Koko J. Klarissa uson ? ID#: ?[id number] ? : ?1940 ? Procedure Date: ? [...] procedure was Urgent. The indication for ?the seed laboratory technician visit is cardiomyo nita. Chest [...] ?3.5 guiding catheter and a 3.5 [address] ??20 Mhz. ??Imaging ?was successful. ??Image [...] premounted 2. 75 x 30 mm [place] ([place]) was deployed ? with a maximum [...] may require ?modification of this regimen. [facility] [place] [facility] for ?questions. ?The 1 year [...] note might be different from the original. [facility] Cardiac Catheterization/Intervention Re port Patient Name: Koko Zamora Procedure Date: 05/20/2022 A #: [id number] Primary Physician: Abundio Servin Case #: File Name: [id number] Catheterization Order Number: [id number] [facility] Final Report [place], [place] Patient Name: Koko Zamora ID#: [id number] : 1940 Procedure Date: May 20, 2022 [...] designated a s ASA Class IV. The [facility] clinical frailty scale is 3: [...] e was Urgent. The indication for the seed laboratory technician visit is cardiomyopathy. C hest [...] 3.5 guiding catheter and a 3.[address] 20 Mhz. Imaging was successful. Image [...] atmospheres. A premounted 2.75 x 30 mm [place] ([place]) was deployed with a maximum inflation [...] require modification of this regimen. Consult D [facility] Interventional [facility]iology for questions. The 1 year [...] Signature POC Glucose 123 65 - 199 [facility]dL [facility] Comment: Supplemental ranges: <140 mg/dL before meals <180 mg/dL all other times of the day Specimen Anatomical Collection Method Collection Time Receive d Time (Source) Location / / Volume Laterality Blood 05/20/2022 5:42 PM 2 5:42 EDT PM EDT Fito Summers MD POINT OF CARE TEST ORDERABLE S Performing Organization Address City/State/[place] [address] (ABNORMAL) BMP w/fasting Glucose (05/20/2022 10:50 AM EDT) athologist Signature Glucose 152 (H) 65 - 99 [facility] Fasting mg/dL [facility] Comment: ?Fasting* Glucose Interpretive C [...] Organization Address City/State/[place] [address] Heparin (unfractionated) Level (05/20/2022 5:02 AM EDT) P athologist Signature Heparin UFH 0.57 IU/mL [facility] [...] Organization Address City/State/[place] [address] (ABNORMAL) Differential, Automated (05/20/2022 5:02 AM EDT) Patholo gist Method Time Signature Neutrophils % 58.1 % [facility] Neutr Abs (ANC) 4.52 1.70 - [facility] 6.10 [facility] x10(3[facility]ORY Lymphocytes % 24.1 % [facility] Lymphocytes Abs 1.9 0.9 - 3.2 [facility] x10(3)/[facility] LABORATORY Monocytes % 13.8 % [facility] Monocyte Abs 1.1 (H) 0.3 - 0.9 [facility] x10(3)/[facility] LABORATORY Eosinophils % 2.6 % [facility] Eosinophils Abs 0.2 0.0 - 0.4 [facility] x10(3)/[facility] LABORATORY Basophils % 0.8 % [facility] Basophils Abs 0.1 0.0 - 0.1 [facility] x10(3)/[facility] LABORATORY Immature Gran [...] Organization Address City/State/[place] [address] (ABNORMAL) Hemogram (05/20/2022 5:02 AM EDT) Analysis Performed At Patho logist Time Signature WBC 7.8 4.0 - 9.5 [facility] x10(3)/[facility] LABORATORY RBC 3.53 (L) 4.58 - [facility] 5.54 [facility] x10(6[facility]ORY Hemoglobin 11.4 (L) 13.7 - [facility] 16.5 g/dL [facility] Hematocrit 34.3 (L) 40.5 - [facility] 48.5 % [facility] MCV 97.2 (H) 82.9 - [facility] 93.1 fL [facility] MCH 32.3 (H) 27.5 - [facility] 32.1 pg [facility] MCHC 33.2 32.0 - [facility] 35.7 g/dL [facility] Platelets 181 145 - 357 [facility] x10(3)/[facility] LABORATORY RDWSD 46.4 (H) 36.0 - [facility] 45.[address] [facility] LABORATORY RDWCV 13.0 11.4 - [facility] 13.8 % [facility] MPV 10.4 7.6 - 12.9 [facility] LABORATORY nRBC % Auto 0.0 % [facility] nRBC Abs Auto 0.000 0.000 - [facility] 0.000 [facility] x10(3[facility] LAB[facility]ATORY Specimen Anatomical Collection Method Collection Time Receive d Time (Source) Location / / Volume Laterality Blood 05/20/2022 5:02 AM 2 5:19 EDT AM EDT Resulting Agency Comment Spec In Lab Edward Rodríguez MD HEMATOLOGY ORDERABLES Performing Organization Address City/State/[place] [address] Heparin (unfractionated) Level (05/19/2022 3:26 AM EDT) athologist Signature Heparin UFH 0.59 IU/mL [facility] [...] Organization Address City/State/[place] [address] (ABNORMAL) Differential, Automated (05/19/2022 3:26 AM EDT) Patholo gist Method Time Signature Neutrophils % 62.1 % [facility] Neutr Abs (ANC) 4.59 1.70 - [facility] 6.10 [facility] x10(3[facility] LAB[facility]ATORY Lymphocytes % 22.1 % [facility] Lymphocytes Abs 1.6 0.9 - 3.2 [facility] x10(3)/[facility] LABORATORY Monocytes % 13.5 % [facility] Monocyte Abs 1.0 (H) 0.3 - 0.9 [facility] x10(3)/[facility] LABORATORY Eosinophils % 1.3 % [facility] Eosinophils Abs 0.1 0.0 - 0.4 [facility] x10(3)/[facility] LABORATORY Basophils % 0.5 % [facility] Basophils Abs 0.0 0.0 - 0.1 [facility] x10(3)/[facility] LABORATORY Immature Gran [...] Rain Gran Abs 0.04 0.00 - 0.04 x10(3)/[facility] LABORATORY Specimen Anatomical Collection Method Collection Time Receive d Time (Source) Location / / Volume Laterality Blood 05/19/2022 3:26 AM 3:59 EDT AM EDT Resulting Agency Comment Spec In Lab Edward Rodríguez MD HEMATOLOGY ORDERABLES Performing Organization Address City/State/[place] [address] (ABNORMAL) Hemogram (05/19/2022 3:26 AM EDT) Analysis Performed At Path logist Time Signature WBC 7.4 4.0 - 9.5 [facility] x10(3)/[facility] LABORATORY RBC 3.74 (L) 4.58 - [facility] 5.54 [facility] x10(6[facility] LAB[facility]ORY Hemoglobin 12.1 (L) 13.7 - [facility] 16.5 g/dL [facility] Hematocrit 36.4 (L) 40.5 - [facility] 48.5 % [facility] MCV 97.3 (H) 82.9 - [facility] 93.[address] [facility] LABORATORY MCH 32.4 (H) 27.5 - [facility] 32.1 pg [facility] MCHC 33.2 32.0 - [facility] 35.7 g/dL [facility] Platelets 168 145 - 357 [facility] x10(3)/[facility] LABORATORY RDWSD 46.9 (H) 36.0 - [facility] 45.[address] [facility] LABORATORY RDWCV 13.0 11.4 - [facility] 13.8 % [facility] MPV 10.5 7.6 - 12.9 [facility] nRBC % Auto 0.0 % [facility] nRBC Abs Auto 0.000 0.000 - [facility] 0.000 [facility] x10(3[facility] LABORATORY Specimen Anatomical Collection Method Collection Time Receive d Time (Source) Location / / Volume Laterality Blood 05/19/2022 3:26 AM 3:59 EDT AM EDT Resulting Agency Comment Spec In Lab Edward Rodríguez MD HEMATOLOGY ORDERABLES Performing Organization Address City/State/[place] [address] TSH (05/18/2022 8:00 PM EDT) P athologist Signature TSH 2.27 0.27 - 4.20 [facility] mcIU/mL [facility] Comment: Reference Interval (mcIU/mL): Females: ??First Trimester: 0.23-3.88 ??Second Trimester: 0.22-3.90 ??Third Trimester: 0.44-4.66 Specimen Anatomical Collection Method Collection Time Receive d Time (Source) Location / / Volume Laterality Blood 05/18/2022 8:00 PM 2 8:06 EDT PM EDT Resulting Agency Comment Spec In Lab Fito Summers MD CHEMISTRY ORDERABLES Performing Organization Address City/State/ZIP Code Phon e Number [facility] [place] [address] (ABNORMAL) Differential, Automated (05/18/2022 3:34 AM EDT) [facility] gist Method Time Signature Neutrophils % 67.2 % [facility] Neutr Abs (ANC) 5.89 1.70 - [facility] 6.10 [facility] x10(3[facility] LAB[facility]ORY Lymphocytes % 17.1 % [facility] Lymphocytes Abs 1.5 0.9 - 3.2 [facility] x10(3)/[facility] LABORATORY Monocytes % 13.6 % [facility] Monocyte Abs 1.2 (H) 0.3 - 0.9 [facility] x10(3)/[facility] LABORATORY Eosinophils % 1.0 % [facility] Eosinophils Abs 0.1 0.0 - 0.4 [facility] x10(3)/[facility] LABORATORY Basophils % 0.6 % [facility] Basophils Abs 0.0 0.0 - 0.1 [facility] x10(3)/[facility] LABORATORY Immature Gran [...] Rain Gran Abs 0.04 0.00 - 0.04 x10(3)/[facility] LABORATORY Specimen Anatomical Collection Method Collection Time Receive d Time (Source) Location / / Volume Laterality Blood 05/18/2022 3:34 AM 2 3:48 EDT AM EDT Resulting Agency Comment Spec In Lab Edward N Facciponte MD HEMATOLOGY ORDERABLES Performing Organization Address City/[facility]/[place] [address] (ABNORMAL) Hemogram (05/18/2022 3:34 AM EDT) Analysis Performed At Patho logist Time Signature WBC 8.8 4.0 - 9.5 [facility] LABORATORY RBC 3.45 (L) 4.58 - [facility] 5.54 [facility] x[facility]ORY Hemoglobin 11.2 (L) 13.7 - [facility] 16.5 g/dL [facility] Hematocrit 33.0 (L) 40.5 - [facility] 48.5 % [facility] MCV 95.7 (H) 82.9 - [facility] 93.[address] [facility] LABORATORY MCH 32.5 (H) 27.5 - [facility] 32.1 pg [facility] MCHC 33.9 32.0 - [facility] 35.7 g/dL [facility] Platelets 130 (L) 145 - 357 [facility] x10(3)/[facility] LABORATORY RDWSD 46.2 (H) 36.0 - [facility] 45.[address] [facility] LABORATORY RDWCV 13.2 11.4 - [facility] 13.8 % [facility] MPV 10.8 7.6 - 12.9 [facility] LABORATORY nRBC % Auto 0.0 % [facility] nRBC Abs Auto 0.000 0.000 - [facility] 0.000 [facility] x10(3[facility] LAB[facility]ORY Specimen Anatomical Collection Method Collection Time Receive d Time (Source) Location / / Volume Laterality Blood 05/18/2022 3:34 AM 3:48 EDT AM EDT Resulting Agency Comment Spec In Lab Edward Rodríguez MD HEMATOLOGY ORDERABLES Performing Organization Address City/[facility]/[place] [address] Heparin (unfractionated) Level (05/18/2022 3:34 AM EDT) athologist Signature Heparin UFH 0.59 IU/mL [facility] [...] Organization Address City/State/ZIP Code Phon e Number [address] Magnesium (05/17/2022 3:33 AM EDT) athologist Signature Magnesium 0.76 0.69 - 1.07 [facility] mmol/L [facility] Specimen Anatomical Collection Method Collection Time Receive d Time (Source) Location / / Volume Laterality Blood Venous Draw / 05/17/2022 3:33 AM 05/17/20 4:05 Unknown EDT AM EDT Resulting Agency Comment Spec In Lab Dottie Hill APRN CHEMISTRY ORDERABLES Performing Organization Address City/State/ZIP Code Phon e Number [address] (ABNORMAL) Basic Metabolic Panel (non-fasting) (05/17/2022 3:33 AM EDT) athologist Signature Glucose Lvl 158 65 - 199 [facility] mg/dL [facility] Comment: Diabetes: >=200 mg/dL plus [...] Organization Address City/State/[place] [address] (ABNORMAL) Differential, Automated (05/17/2022 3:33 AM EDT) Patholo gist Method Time Signature Neutrophils % 65.5 % [facility] Neutr Abs (ANC) 6.84 (H) 1.70 - [facility] 6.10 [facility] x10(3)/[facility] LABORATORY Lymphocytes % 19.7 % [facility] Lymphocytes Abs 2.1 0.9 - 3.2 [facility] x10(3)/[facility] LABORATORY Monocytes % 13.1 % [facility] Monocyte Abs 1.4 (H) 0.3 - 0.9 [facility] x10(3)/[facility] LABORATORY Eosinophils % 0.6 % [facility] Eosinophils Abs 0.1 0.0 - 0.4 [facility] x10(3)/[facility] LABORATORY Basophils % 0.6 % [facility] Basophils Abs 0.1 0.0 - 0.1 [facility] x10(3)/[facility] LABORATORY Immature Gran % 0.50 % [...] Organization Address City/State/[place] [address] (ABNORMAL) Hemogram (05/17/2022 3:33 AM EDT) Analysis Performed At [facility] logist Time Signature WBC 10.4 (H) 4.0 - 9.5 [facility] x10(3)/[facility] LABORATORY RBC 3.72 (L) 4.58 - [facility] 5.54 [facility] x10(6[facility] LAB[facility]ATORY Hemoglobin 12.0 (L) 13.7 - [facility] 16.5 g/dL [facility] Hematocrit 36.4 (L) 40.5 - [facility] 48.5 % [facility] MCV 97.8 (H) 82.9 - [facility] 93.[address] [facility] LABORATORY MCH 32.3 (H) 27.5 - [facility] 32.1 pg [facility] LABORATORY MCHC 33.0 32.0 - [facility] 35.7 g/dL [facility] Platelets 149 145 - 357 [facility] x10(3)/[facility] LABORATORY RDWSD 48.7 (H) 36.0 - [facility] 45.0 [facility] RDWCV 13.5 11.4 - [facility] 13.8 % [facility] LABORATORY MPV 10.6 7.6 - 12.9 [facility] LABORATORY nRBC % Auto 0.0 % [facility] nRBC Abs Auto 0.000 0.000 - [facility] 0.000 [facility] x10(3[facility] LAB[facility]ATORY Specimen Anatomical Collection Method Collection Time Receive d Time (Source) Location / / Volume Laterality Blood 05/17/2022 3:33 AM 3:53 EDT AM EDT Resulting Agency Comment Spec In Lab Edward Rodríguez MD HEMATOLOGY ORDERABLES Performing Organization Address City/State/[place] [address] (ABNORMAL) Urinalysis Microscopic Exam [...] Organization Address City/State/ZIP Code Phon e Number [address] (ABNORMAL) Urinalysis with reflex Culture (05/16/2022 11:15 PM EDT) Patholo gist Method Time Signature Glucose UA Negative Negative [facility] mg/dL [facility] Protein UA Negative Negative [facility] mg/dL [facility] Bilirubin UA Negative Negative [facility] mg/dL [facility] Comment: Clinical correlation required for [...] [facility] Nitrite UA Negative Negative [facility] LABORATORY Leukocytes UA Negative Negative [facility] LABORATORY Appearance UA Clear Clear [facility] LABORATORY Spec Siler UA 1.021 1.005 - 1.030 [facility] LABORATORY Color UA Yellow Yellow [facility] LABORATORY Culture Reflexed No [facility] LABOR[facility]ORY Specimen Anatomical Collection Method Collection Time Receive d Time (Source) Location / / Volume Laterality Clean Catch 05/16/2022 11:15 05/16/2022 Urine PM EDT 11:30 PM EDT Resulting Agency Comment Spec In Lab Fito Summers MD URINE ORDERABLES Performing Organization Address City/[facility]/[place] [address] Heparin (unfractionated) Level (05/16/2022 [...] Organization Address City/State/[place] [address] XR Chest One View [...] who have questions please contact the health housekeeper caregiver that requested your imaging first. ? Electronically signed by: Tiffanie George MD , [facility] ([phone]), at 05/16/2022 9:27 PM Narrative 05/16/2022 9:27 [...] ho have questions please contact the health housekeeper caregiver that requested your imaging first. Electronically signed by: Tiffanie George MD , [facility] ([phone]), at 05/16/2022 9:27 PM Fito Summers MD IMG DX ORDERABLES EKG 12 Lead (05/16/2022 8:57 PM EDT) Component Value Ref Range Test Analysis Performed Pathologis t Method Time At Signature Ventricular rate 117 BPM MUSE SYSTEM QRS Duration 112 ms MUSE SYSTEM Q-T Interval 346 ms MUSE SYSTEM QTC Calculated 482 ms MUSE SYSTEM (Bezet) Calculated R [place] -48 degrees MUSE SYSTEM Calculated T [place] 111 degrees MUSE SYSTEM INTERPRETATION Atrial fibrillation [...] athologist Signature Heparin UFH 0.53 IU/mL [facility] [...] Organization Address City/State/[place] [address] ECHOCARDIOGRAM COMPLETE W CONTRAST (05/16/2022 12:49 PM EDT) athologist Signature EF 28 HEARTLAB SYSTEM Anatomical Region Laterality Modality Cardiac Other Specimen (Source) Anatomical Collection Method Collection Time Re ceived Time Location / / Volume Laterality 05/16/2022 11:22 AM EDT Narrative 05/16/2022 1:54 PM EDT [facility] ?[address] ? [place] [address] ?Voice: ?Fax: ? Echocardiogram Report Name: KOKO ZAMORA ?Study Date: 05/16/2022 11:22 AM ? Patient Location: 3T 0303 B : 1940 ? Height: 67.5 in ? Account: [id number] Age: 81 yrs ? Weight: 176 lb Gender: Male ?BSA: 1.9 m2 Ordering Physician: FITO SUMMERS Referring Physician: MALI FLORIAN Performed By: Jolene Bernard RDCS Exam Location: [facility]. Interpretation Summary Left ventricle is [...] and LV systolic dysfunction are new. Procedure Complete-[id number]. Image enhancement Optiso n was used for [...] note might be different from the original. [facility] [address] [place] [address] Voice: Fax: Echocardiogram Report Name: KOKO ZAMORA Study Date: 05/2022 11:22 AM Patient Location: [address] [place] [address] : 1940 Height: 67.5 in Account: [id number] Age: 81 yrs Weight: 176 lb Gender: Male BSA: 1.9 m2 Ordering Physician: FITO SUMMERS Referring Physician: MALI FLORIAN Performed By: Jolene Bernard RDCS Exam Location: [facility]. Interpretation Summary Left ventricle is [...] and LV systolic dysfunction are new. Procedure Complete-[id number]. Image enhancement Optiso n was used for [...] (ABNORMAL) Differential, Automated (05/16/2022 3:01 AM EDT) [facility] Method Time Signature Neutrophils % 78.8 % [facility] Neutr Abs (ANC) 9.11 (H) 1.70 - [facility] 6.10 [facility] x10(3)/[facility] LABORATORY Lymphocytes % 9.4 % [facility] Lymphocytes Abs 1.1 0.9 - 3.2 [facility](3[facility] LABORATORY Monocytes % 10.9 % [facility] Monocyte Abs 1.3 (H) 0.3 - 0.9 [facility] x10(3)/[facility] LABORATORY Eosinophils % 0.0 % [facility] Eosinophils Abs 0.0 0.0 - 0.4 [facility] x10(3)/[facility] LABORATORY Basophils % 0.3 % [facility] Basophils Abs 0.0 0.0 - 0.1 [facility] x10(3)/[facility] LABORATORY Immature Gran % 0.60 % [...] Organization Address City/State/[place] [address] (ABNORMAL) Hemogram (05/16/2022 3:01 AM EDT) Analysis Performed At Patho logist Time Signature WBC 11.6 (H) 4.0 - 9.5 [facility] x10(3)/[facility] LABORATORY RBC 3.62 (L) 4.58 - [facility] 5.54 [facility] x10(6[facility] LAB[facility]ATORY Hemoglobin 12.0 (L) 13.7 - [facility] 16.5 g/dL [facility]ORY Hematocrit 35.3 (L) 40.5 - [facility] 48.5 % [facility] MCV 97.5 (H) 82.9 - [facility] 93.1 fL [facility] LABORATORY MCH 33.1 (H) 27.5 - [facility] 32.1 pg [facility] MCHC 34.0 32.0 - [facility] 35.7 g/dL [facility] Platelets 151 145 - 357 [facility] x10(3)/[facility] LABORATORY RDWSD 47.6 (H) 36.0 - [facility] 45.[address] [facility] LABORATORY RDWCV 13.3 11.4 - [facility] 13.8 % [facility] LABORATORY MPV 10.5 7.6 - 12.9 [facility] LABORATORY nRBC % Auto 0.0 % [facility] nRBC Abs Auto 0.000 0.000 - [facility] 0.000 [facility] x10(3)/[facility] LABORATORY Specimen Anatomical Collection Method Collection Time Receive d Time (Source) Location / / Volume Laterality Blood 05/16/2022 3:01 AM 2 3:36 EDT AM EDT Resulting Agency Comment Spec In Lab Erin Garza MD HEMATOLOGY ORDERABLES Performing Organization Address City/[facility]/[place] [address] Phosphorus (05/16/2022 3:01 AM EDT) athologist Signature Phosphorus 3.7 2.5 - 4.5 [facility] mg/dL [facility] LABORATORY Specimen Anatomical Collection Method Collection Time Receive d Time (Source) Location / / Volume Laterality Blood 05/16/2022 3:01 AM 2 3:36 EDT AM EDT Resulting Agency Comment Spec In Lab Fito Summers MD CHEMISTRY ORDERABLES Performing Organization Address City/[facility]/ZIP Code Phon e Number [address] Magnesium (05/16/2022 3:01 AM EDT) P athologist Signature Magnesium 0.77 0.69 - 1.07 [facility] mmol/L [facility] Specimen Anatomical Collection Method Collection Time Receive d Time (Source) Location / / Volume Laterality Blood 05/16/2022 3:01 AM 2 3:36 EDT AM EDT Resulting Agency Comment Spec In Lab Fito Summers MD CHEMISTRY ORDERABLES Performing Organization Address City/[facility]/[place] [address] (ABNORMAL) Basic Metabolic Panel (non-fasting) (05/16/2022 3:01 AM EDT) P athologist Signature Glucose Lvl 222 (H) 65 - 199 [facility] mg/dL [facility] LABORATORY Comment: Diabetes: >=200 mg/dL plus [...] Organization Address City/State/[place] [address] (ABNORMAL) BLOOD GAS 2 ARTERIAL (05/15/2022 3:33 PM EDT) Analysis Performed At Patho logist Time Signature pH Art 7.33 (L) 7.35 - [facility] 7.45 [facility] LABORATORY pCO2 Art 41 35 - 45 [facility] LABORATORY pO2 Art 131 (H) 85 - 104 [facility] LABORATORY HCO3 Art 21.1 20.0 - [facility] 26.0 [facility] mmol/L [facility] LABORATORY BE Art -4.8 (L) -3.0 - 3.0 [facility] mmol/L [facility] LABORATORY Hgb Blood Gas 13.4 (L) 13.7 - [facility] 16.5 g/dL [facility] LABORATORY O2HB Art 96.9 94.0 - [facility] 97.0 % [facility] LABORATORY COHB Art 1.4 % [facility] [...] Whole Bld 136 65 - 199 mg/dL [facility] LABORATORY Comment: Diabetes: >=200 mg/dL plus symp toms. Lactate WB 2.0 0.5 - 2.2 mmol/L [facility] LABORATORY Specimen Anatomical Collection Method Collection Time Receive d Time (Source) Location / / Volume Laterality Blood 05/15/2022 3:33 PM 2 3:[address] Jamel Torre MD CHEMISTRY ORDERABLES Performing Organization Address City/State/[place] [address] (ABNORMAL) BLOOD GAS 2 ARTERIAL (05/15/2022 2:06 PM EDT) Analysis Performed At Patho logist Time Signature pH Art 7.39 7.35 - [facility] 7.45 [facility] LABORATORY pCO2 Art 35 35 - 45 [facility] mmHg [facility] LABORATORY pO2 Art 135 (H) 85 - 104 [facility] LABORATORY HCO3 Art 20.8 20.0 - [facility] 26.0 [facility] mmol/[facility] LABORATORY BE Art -4.2 (L) -3.0 - 3.0 [facility] mmol/L [facility] LABORATORY Hgb Blood Gas 14.5 13.7 - [facility] 16.5 g/dL [facility] O2HB Art 97.2 (H) 94.0 - [facility] 97.0 % [facility] LABORATORY COHB Art 1.2 % [facility] [...] Whole Bld 152 65 - 199 mg/dL [facility] LABOR[facility]ORY Comment: Diabetes: >=200 mg/dL plus symp toms. Lactate WB 1.5 0.5 - 2.2 mmol/L [facility] LABORATORY Specimen Anatomical Collection Method Collection Time Receive d Time (Source) Location / / Volume Laterality Blood 05/15/2022 2:06 PM 2 2:[address] Jamel Torre MD CHEMISTRY ORDERABLES Performing Organization Address City/[facility]/ZIP Code Phon e Number [place] [id number] [address] (ABNORMAL) Prothrombin Time (05/15/2022 12:30 PM EDT) P athologist Signature PT 12.9 (H) 9.4 - 12.5 [facility] LABORATORY INR 1.1 [facility] LABORATORY Comment: [...] Performing Organization Address City/[facility]/[place] [address] (ABNORMAL) APTT (05/15/2022 12:30 [...] Jhonny Morales HEMATOLOGY ORDERABLES Performing Organization Address City/[facility]/[place] [address] Gold Tube HOLD (05/15/2022 12:20 PM EDT) P athologist Signature Gold Hold Sample in [facility]. [facility] LABORATORY Specimen Anatomical Collection Method Collection Time Receive d Time (Source) Location / / Volume Laterality Blood No Charge / 05/15/2022 12:20 05/15/2022 Unknown PM EDT 12:20 PM EDT Lc TRIPP CHEMISTRY ORDERABLES Performing Organization Address City/[facility]/[place] [address] Type and Screen Validity (05/15/2022 12:00 PM EDT) [facility] ANT Farm Method Time Signature T&S only valid [facility] LABORATORY Comment: This Type and Screen result is only valid at the [facility] Specimen Anatomical Collection Method Collection Time Receive d Time (Source) Location / / Volume Laterality Blood 05/15/2022 12:00 05/15/2022 PM EDT 12:17 PM EDT Resulting Agency Comment Spec In Lab Lc TRIPP BLOOD BANK ORDERABLES Performing Organization Address City/[facility]/ZIP Code Phon e Number [address] ABORH Recheck Status (05/15/2022 12:00 PM EDT) [facility] ANT Farm Method Time Signature ABORH Recheck Order Placed [facility] LABORATORY ABORH Type Complete [facility] LABORATORY Specimen Anatomical Collection Method Collection Time Receive d Time (Source) Location / / Volume Laterality Blood 05/15/2022 12:00 05/15/2022 PM EDT 12:17 PM EDT Resulting Agency Comment Spec In Lab Lc TRIPP BLOOD BANK ORDERABLES Performing Organization Address City/State/[place] [address] CK (05/15/2022 12:00 PM EDT) P athologist Signature CK, Total 87 0 - 200 [facility] unit/L [facility] LABORATORY Specimen Anatomical Collection Method Collection Time Receive d Time (Source) Location / / Volume Laterality Blood Venous Draw / 05/15/2022 12:00 05/15/2022 Unknown PM EDT 12:19 PM EDT Resulting Agency Comment Spec In Lab Fito Summers MD CHEMISTRY ORDERABLES Performing Organization Address City/[facility]/[place] [address] Antibody screen (05/15/2022 12:00 PM EDT) [facility] Method Time Signature Ab Screen Negative [facility] LABORATORY Expires at 05/18/2022 [facility] 2359 on: [facility] LABORATORY Specimen Anatomical Collection Method Collection Time Receive d Time (Source) Location / / Volume Laterality Blood 05/15/2022 12:00 05/15/2022 PM EDT 12:17 PM EDT Resulting Agency Comment Spec In Lab Lc Dominick Kimberly TRIPP BLOOD BANK ORDERABLES Performing Organization Address City/[facility]/[place] [address] ABO/Rh Typing (05/15/2022 12:00 PM EDT) P athologist Signature ABORh Type O Pos [facility] LABORATORY Specimen Anatomical Collection Method Collection Time Receive d Time (Source) Location / / Volume Laterality Blood 05/15/2022 12:00 05/15/2022 PM EDT 12:17 PM EDT Resulting Agency Comment Spec In Lab Lc Dominick Kimberly TRIPP BLOOD BANK ORDERABLES Performing Organization Address City/[facility]/[place] [address] (ABNORMAL) Differential, Automated (05/15/2022 12:00 PM EDT) [facility] Method Time Signature Neutrophils % 79.4 % [facility] LABORATORY Neutr Abs (ANC) 7.49 (H) 1.70 - [facility] 6.10 [facility] x10(3)/[facility] LABORATORY Lymphocytes % 11.3 % [facility] LABORATORY Lymphocytes Abs 1.1 0.9 - 3.2 [facility] x10(3)/[facility] LABORATORY Monocytes % 7.8 % [facility] LABORATORY Monocyte Abs 0.7 0.3 - 0.9 [facility] x10(3)/[facility] LABORATORY Eosinophils % 0.6 % [facility] LABORATORY Eosinophils Abs 0.1 0.0 - 0.4 [facility] x10(3)/[facility] LABORATORY Basophils % 0.6 % [facility] LABORATORY Basophils Abs 0.1 0.0 - 0.1 [facility] x10(3)/[facility] LABORATORY Immature Gran % 0.30 % [facility] LABORATORY Comment: Immature granulocytes(IG's)percentage an d absolute count will include metamyelocytes, myelocytes, and promyelo cytes. Blood smears from CBCs yielding IG's will be scanned manually for concor dance. If this scan disagrees with the automated IG or if promyelocytes are not ed, a manual differential will be performed. Rain Gran Abs 0.03 0.00 - 0.04 x10(3)/[facility] MAR [facility] LABORATORY Specimen Anatomical Collection Method Collection Time Receive d Time (Source) Location / / Volume Laterality Blood 05/15/2022 12:00 05/15/2022 PM EDT 12:19 PM EDT Resulting Agency Comment Spec In Lab Lc TRIPP HEMATOLOGY ORDERABLES Performing Organization Address City/State/[place] [address] (ABNORMAL) Hemogram (05/15/2022 12:00 PM EDT) Analysis Performed At [facility] logist Time Signature WBC 9.4 4.0 - 9.5 [facility] x10(3)/[facility] LABORATORY RBC 4.48 (L) 4.58 - [facility] FAYE 5.54 [facility] x10(6)/[facility] LAB[facility]ORY Hemoglobin 14.5 13.7 - [facility] 16.[facility] g/dL [facility] LAB[facility]ORY Hematocrit 42.4 40.5 - [facility] 48.5 % [facility] LABORATORY MCV 94.6 (H) 82.9 - [facility] 93[facility] [facility] LABORATORY MCH 32.4 (H) 27.5 - [facility] 32.1 pg [facility] LABORATORY MCHC 34.2 32.0 - [facility] 35.7 g/dL [facility] LABORATORY Platelets 209 145 - 357 [facility] x10(3)/[facility] LABORATORY RDWSD 45.9 (H) 36.0 - [facility] 45.[address] [facility] LABORATORY RDWCV 13.1 11.4 - [facility] 13.8 % [facility] LABORATORY MPV 10.5 7.6 - 12.9 [facility] LABORATORY nRBC % Auto 0.0 % [facility] LABORATORY nRBC Abs Auto 0.000 0.000 - [facility] 0.000 [facility] x10(3)/[facility] LABORATORY Specimen Anatomical Collection Method Collection Time Receive d Time (Source) Location / / Volume Laterality Blood 05/15/2022 12:00 05/15/2022 PM EDT 12:19 PM EDT Resulting Agency Comment Spec In Lab Lc TRIPP HEMATOLOGY ORDERABLES Performing Organization Address City/State/[place] [address] (ABNORMAL) Basic Metabolic Panel (non-fasting) (05/15/2022 12:00 PM EDT) athologist Signature Glucose Lvl 203 (H) 65 - 199 [facility] mg/dL [facility] LABORATORY Comment: Diabetes: >=200 mg/dL plus symp toms BUN 16 10 - 20 mg/dL [facility] LABORATORY Creatinine 0.84 0.80 - 1.50 mg/dL [facility] OCK [facility] LABORATORY Sodium 141 135 - 145 [...] Organization Address City/State/[place] [address] documented in this encounter [...] (Given - Provider: Barbie Joyce , RN)1750 ([facility] Hold - Provider: Admin Adt - Reason: Transfer to a Procedural area)1955 ([facility] Unhold - Provider: Admin Adt) 15 (Given - Provider: Etta contreras RN) 1,000 mcg, Oral, DAILY, First dose on 05/16/22 at 0900, Until Discontinued, Routine metoprolol tartrate (Lopressor) tablet 12.5 mg (CANCEL ED) 0838 (Given - Provider: Caroline Zamora, DION)2008 (Given - Provider: Nuris Lester RN) 0853 (Given - Provider: Barbie Joyce RN)1750 ([facility] Hold - Provider: Admin Adt - Reason: Transfer to a Procedural area)1955 ([facility] Unhold - Provider: Admin Adt)2004 (Given - [...] (Given - Provider: Barbie Joyce , DION)1750 ([facility] Hold - Provider: Admin Adt - Reason: Transfer to a Procedural area)1955 ([facility] Unhold - Provider: Admin Adt) 0816 (Given [...] 0853 (Given - Provider: Barbie Joyce RN)1750 ([facility] Hold - Provider: Admin Adt - Reason: Transfer to a Procedural area)1955 ([facility] Unhold - Provider: Admin Adt) 0817 (Given - Provider: Etta contreras RN) 0.4 mg, Oral, DAILY, First dose on Fri at 0900, Until Discontinued, DO NOT CRUSH OR OPEN, Routine thiamine (Vitamin B1) tablet 100 mg 0838 (Given - Prov ider: Caroline Zamora RN) 0853 (Given - Provider: Barbie Joyce RN)1750 ([facility] Hold - Provider: Admin Adt - Reason: Transfer to a Procedural area)1955 ([facility] Unhold - Provider: Admin Adt) 0816 (Given - Provider: Etta contreras RN) 100 mg, Oral, DAILY, First dose on Fri at 0900, Until Discontinued, Routine valsartan (Diovan) tablet 40 mg 0838 (Given - Provider : Caroline Zamora, DION)2008 (Given - Provider: Nuris Lester RN) 0853 (Given - Provider: Barbie Joyce RN)1750 ([facility] Hold - Provider: Admin Adt - Reason: Transfer to a Procedural area)1955 ([facility] Unhold - Provider: Admin Adt)2005 (Given - [...] - Reason: Transfer to a Procedural area)1955 ([facility] Unhold - Provider: Admin Adt) 5-10 mg, [...]
Routine documented in this encounter Care Teams Horses Or Mules Teamster Relationship Specialty Start Date End Date Bobby Das MD PCP - General 10/02/[address] [place] [address] [place] [address] documented as of this encounter
--- OUTSIDE RECORDS SUMMARY | 2022-07-31 09:01 | XMS_ITS | Encounter Summary ---
:1940 [place] [address] Care Team Providers Name Role Phone Bobby Das MD Primary Care Provider Reason for Visit Auth/Cert Specialty Diagnoses / Procedures Referred By Contact Refer red To Contact Diagnoses Limb ischemia LLE thrombus Fito Summers MD [facility] [place] [address] Referral ID Status Reason Start Date Expiration Date Visits Requ ested Visits Authorized [id number] 1 1 Encounter Details Date Type Department Care Team Description 05/15/2022 Anesthesia Event Main Operating Room Cari Briggs MD [facility] [place] [address] [facility] Duong Aguillon CRNA [facility] [place] [address] [place] [address] Anesthesia Record Procedure Summary Procedure Name [...] Amb ros, Andrea L, DION fossa), left; bkxc-zzk-buhmam catheter system; 18 gauge; OSH; site care per policy/procedure, site symptomatic, removed per policy/procedure, catheter/device intact; 05/16/22; 1117 PIV 05/15/22; 1204; median 05/15/22 1204 by 05/16/22 0738 by cubital vein (antecubital Marcia Dimas RN Gon zalez, Adriana, fossa), right; RN jytv-qez-xwwgha catheter system; 18 gauge; OSH; 05/16/22; 0738 [...] Procedure Summary Date: 05/15/22 Room / Location: [facility] OR [address] [place] [address] MAIN OR Anesthesia Start: 1320 Anesthesia Stop: 1633 Procedure: EMBOLECTOMY OR THROMBECTOMY, FEMOROPOPLITEAL, AORTOILIAC ARTERY BY LEG INCISION [facility] (Left ) Diagnosis: (Acute Limb Ischemia) Surgeons: Fito Summers MD Responsible Provider: Cari Ventura MD Anesthesia Type: general ASA Status: 3 - Emergent All Anesthesia Providers: Anesthesiologist: Cari Ventura MD CODE ENFORCEMENT SUPERVISOR: Torres Aguilar CRNA Vitals Value Taken Time BP 108/69 05/15/22 1715 Temp 36.3 ??C (97.3 ??F) 05/15/22 1633 Pulse 110 05/15/22 1719 Resp 16 05/15/22 1719 SpO2 89 % 05/15/22 1719 Pain Level Vitals shown include unvalidated device data. Patient Location: PACU/[facility] Level of Consciousness: Awake and [...] IR Biopsy Spine 07/20/2019 Bobby Marshall MD [facility] INTERVENTIONL RAD ??? IR VERTEBROPLASTY LUMBAR MULTIPLE LEVELS 07/20/2019 IR Vertebroplasty Lumbar Multiple Levels 07/20/2019 Bobby Marshall MD [facility] INTERVENTIONL RAD ??? IR VERTEBROPLASTY THORACIC SINGLE LEVEL 10/25/2020 IR Vertebroplasty Thoracic Single Level 10/25/2020 Matt Chisholm MD [facility] INTERVENTIONL RAD Social History Tobacco Use ??? 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 Plan discussed with CODE ENFORCEMENT SUPERVISOR. Anesthesia Screening documented in this encounter Plan of Treatment Upcoming Encounters Date Type Specialty Care Team Description 08/08/2022 Office Visit Gastroenterology Negra Collins MD [facility] GASTROENTEROLOGY DEPT [place], [place] [address] (Wo rk) 09/05/2022 Appointment Cardiology Trinity Reid MD [facility] CARDIOLOGY [place], [place] 0375 (Wo rk) 09/05/2022 Office Visit Cardiology Trinity Reid MD [facility] CARDIOLOGY [place], [place] 0375 (Wo rk) documented as of [...] Routine documented in this encounter Care Teams Quality Tester Relationship Specialty Start Date End Date Bobby Das MD PCP - General 10/02/[address] [place] [address] [place] [phone] documented as of this encounter
--- OUTSIDE RECORDS SUMMARY | 2022-07-31 09:01 | XMS_ITS | Encounter Summary ---
:1940 Author Organization [facility] [place] [address] Care Team Providers Name Role Phone Bobby Das MD Primary Care Provider Encounter Details Date Type Department Care Team Description 09/22/2020 Telephone Pain and Spine Leon reid at [facility] [place] [address] Social History Tobacco Use Types Packs/Day [...] [facility] [place], [place] [address] (Wo rk) 09/05/2022 Appointment Cardiology Trinity Reid MD [facility] [place] [address] (Wo rk) 09/05/2022 Office Visit Cardiology Trinity Reid MD [facility] [place] [address] (Wo rk) documented as of this encounter Visit Diagnoses Not on filedocumented in this encounter Care Teams Candy Spreader Relationship Specialty Start Date End Date Bobby Das MD PCP - General 10/02/[address] [place] [address] [place] [phone] documented as of this encounter
--- OUTSIDE RECORDS SUMMARY | 2022-07-31 09:01 | XMS_ITS | Encounter Summary ---
:1940 [place] [address] Care Team Providers Name Role Phone Bobby Das MD Primary Care Provider Encounter Details Date Type Department Care Team Description 10/13/2020 Notes Only Radiology at [facility] Alphonso Esquivel [facility]3] [place] [phone] DIAGNOSTIC RADIOLOGY [phone] [place] [phone] (Wo rk) Social History Tobacco Use Types [...] Gastroenterology Negra Collins MD [facility] GASTROENTEROLOGY DEPT [place], [place] 0[address] (Wo rk) 09/05/2022 Appointment Cardiology Trinity Reid MD [facility] CARDIOLOGY [place], [place] [address] (Wo rk) 09/05/2022 Office Visit Cardiology Trinity Reid MD [facility] CARDIOLOGY [place], [place] [address]375 (Wo rk) documented as of this encounter Visit Diagnoses Not on filedocumented in this encounter Care Teams Mcat Instructor Relationship Specialty Start Date End Date Bobby Das MD PCP - General 10/02/[address] [place] [address] [place] [phone] documented as of this encounter
--- OUTSIDE RECORDS SUMMARY | 2022-07-31 09:01 | XMS_ITS | Encounter Summary ---
:1940 [place] [address] Care Team Providers Name Role Phone Bobby Das MD Primary Care Provider Encounter Details Date Type Department Care Team Description 02/27/2021 Notes Only Radiology Matt Chisholm MD [facility] [place] [address] DIAGNOSTIC RADIOLOGY [phone] [place] [phone] (Wo rk) Social History Tobacco Use Types [...] MD [facility] DR GASTROENTEROLOGY DEPT [place], [place] 0375 (Wo rk) 09/05/2022 Appointment Cardiology Trinity Reid MD [facility] CARDIOLOGY [place], [place] [address] (Wo rk) 09/05/2022 Office Visit Cardiology Trinity Reid MD [facility] CARDIOLOGY [place], [place] 0375 (Wo rk) documented as of this encounter Visit Diagnoses Not on filedocumented in this encounter Care Teams Financial Reserve Clerk Relationship Specialty Start Date End Date Bobby Das MD PCP - General 10/02/[address] [place] [address] [place] [phone] documented as of this encounter
--- OUTSIDE RECORDS SUMMARY | 2022-07-31 09:01 | XMS_ITS | Encounter Summary ---
:1940 Author Organization [facility] [place] [address] Care Team Providers Name Role Phone Bobby Das MD Primary Care Provider Encounter Details Date Type Department Care Team Description 08/06/2020 Ancillary Procedure Radiology at [facility] Amy Grimaldo [address] [place] [address] [address] [phone] NEUROSURGERY-N [place], [place] [address] Social History Tobacco Use Types [...] MD [facility] GASTROENTEROLOGY DEPT [place], [place] 0375 (Wo rk) 09/05/2022 Appointment Cardiology Trinity Reid MD [facility] CARDIOLOGY [place], [place] 0375 (Wo rk) 09/05/2022 Office Visit Cardiology Trinity Reid MD [facility] CARDIOLOGY [place], [place] 0375 (Wo rk) documented as [...] Organization Address City/State/ZIP Code Phon e Number [place], [place] documented in this encounter Visit Diagnoses Not on filedocumented in this encounter Care Teams Brick Shader Relationship Specialty Start Date End Date Bobby Das MD PCP - General 10/02/[address] [place] [address] [place] [phone] documented as of this encounter
--- OUTSIDE RECORDS SUMMARY | 2022-07-31 09:01 | XMS_ITS | Encounter Summary ---
:1940 Author Organization [facility] [place] [address] Care Team Providers Name Role Phone Bobby Das MD Primary Care Provider Encounter Details Date Type Department Care Team Description 08/28/2020 Ancillary Procedure Radiology at [facility] Amy Grimaldo [address] [place] [address] [address] [phone] NEUROSURGERY-N [place], [place] [address] Social History Tobacco Use Types [...] MD [facility] GASTROENTEROLOGY DEPT [place], [place] 0[address] (Wo rk) 09/05/2022 Appointment Cardiology Trinity Reid MD [facility] CARDIOLOGY [place], [place] 0375 (Wo rk) 09/05/2022 Office Visit Cardiology Trinity Reid MD [facility] CARDIOLOGY [place], [place] 0375 (Wo rk) documented as of [...] Organization Address City/State/ZIP Code Phon e Number [place], [place] documented in this encounter Visit Diagnoses Not on filedocumented in this encounter Care Teams Pepper Cutter Relationship Specialty Start Date End Date Bobby Das MD PCP - General 10/02/[address] [place] [address] [place] [phone] documented as of this encounter
--- OUTSIDE RECORDS SUMMARY | 2022-07-31 09:01 | XMS_ITS | Encounter Summary ---
:1940 Author Organization [facility] Address [facility] [place] [address] Care Team Providers Name Role Phone Bobby Das MD Primary Care Provider Encounter Details Date Type Department Care Team Description 10/25/2020 Laboratory Appointment Lab at [facility] Compression fracture [facility] T[facility] Bradley [place] [address] Social History Tobacco Use Types Packs/Day Years [...] [facility] DR GASTROENTEROLOGY DEPT [place], [place] [address] (Wo rk) 09/05/2022 Appointment Cardiology Trinity Reid MD [facility] CARDIOLOGY [place], [place] 0375 (Wo rk) 09/05/2022 Office Visit Cardiology Trinity Reid MD [facility] CARDIOLOGY [place], [place] 0375 (Wo rk) documented as of this encounter Procedures Procedure Name Priority Date/Time Associated Diagnosis Comme [facility] VENIPUNCTURE Routine 10/25/2020 6:35 AM [...] athologist Signature Platelets 192 145 - 357 [facility] x10(3)/[facility] LABORATORY Plat Immature 2.6 0.0 - 7.4 [facility] % % [facility] LABORATORY Comment: Limitation of the Immature Platelet Frac tion (IPF)-May be less reliable when the platelet count is less than 58n077/u L due to statistical imprecision. The IPF [...] in a decreased state of production. References: [employer] The Clinical Value of the Immature Platelet Fraction (IPF) in Cell Recovery Document Number 10-1143 04/2011 [employer] The Role of the Imm ature [...] Organization Address City/State/[place] [address] Prothrombin Time (10/25/2020 6:35 AM EST) athologist Signature PT 10.8 9.4 - 12.5 [facility] LABORATORY INR 1.0 [facility] LABORATORY Comment: An INR [...] City/State/ZIP Code Phon e Number [place] [phone] documented in this encounter Visit Diagnoses Diagnosis Compression fracture of T9 vertebra, ini tial encounter documented in this encounter Care Teams Animal Geneticist Relationship Specialty Start Date End Date Bobby Das MD PCP - General 10/02/[address] [place] [address] [place] [phone] documented as of this encounter
--- OUTSIDE RECORDS SUMMARY | 2022-07-31 09:01 | XMS_ITS | Encounter Summary ---
:1940 Author Organization [facility] Address [facility] [place] [address] Care Team Providers Name Role Phone Bobby Das MD Primary Care Provider Reason for Visit - Closed Specialty Diagnoses / Procedures Referred By Contact Refer red To Contact Procedures Bobby Das MD Film Library- Storage Only DX [address] [place] [phone] Referral ID Status Reason Start Date Expiration Date Visits Requ ested Visits Authorized [id number] Closed 04/13/2021 04/13/2022 1 1 Encounter Details Date Type Department Care Team Description 01/31/2021 Ancillary Procedure Radiology Library at Bobby Almaguer MD [address] [phone] (Rebekah rojas) Social History Tobacco Use Types [...] [facility] DR GASTROENTEROLOGY DEPT [place], [place] 0[address] (Wo rk) 09/05/2022 Appointment Cardiology Trinity Reid MD [facility] ER CARDIOLOGY [place] [address] (Wo rk) 09/05/2022 Office Visit Cardiology Trinity Reid MD [facility] ER CARDIOLOGY [place] 0[address] (Wo rk) documented as of this [...] Organization Address City/State/ZIP Code Phon e Number [place], [place] documented in this encounter Visit Diagnoses Not on filedocumented in this encounter Care Teams Food Service Attendant Relationship Specialty Start Date End Date Bobby Das MD PCP - General 10/02/[address] [place] [address] [place] [phone] documented as of this encounter
--- OUTSIDE RECORDS SUMMARY | 2022-07-31 09:01 | XMS_ITS | Encounter Summary ---
:1940 Author Organization [facility] [address] Care Team Providers Name Role Phone Bobby Das MD Primary Care Provider Reason for Referral Consultation (Routine) - Closed Specialty Diagnoses / Procedures Referred By Contact Refer red To Contact Neurology Diagnoses Low back pain, non-specific Status post vertebroplasty Transient left leg weakness EMG Arpita Whitney APRN [facility] Neurology [address] [place], [place] [address] [place] [phone] Fax: Referral ID Status Reason Start Date Expiration Date Visits V isits Requested Authorized [id number] Closed Consult, 04/17/2021 04/17/2022 1 1 Test & Treat hysical Therapy (Routine) - Specialty Diagnoses / Procedures Referred By Contact Refer red To Contact Diagnoses Low back pain, non-specific Status post vertebroplasty [place] [address] Referral ID Status Reason Start Date Expiration Date Visits V isits Requested Authorized [id number] Evaluate and 04/17/2021 10/14/2021 12 12 Treat Reason for Visit Reason Comments Back Pain new patient visit Consultation (Routine) - Closed Specialty Diagnoses / Procedures Referred By Contact Refer red To Contact [facility] Diagnoses Low back pain Pain - Low back pain/ MRI 02/20/21 & XR 01/31/21 @ [facility] Bobby Das MD [facility] Ctr Pain And [address] [place], [place] [address] [address] [place] [address] Phone: Fax: Referral ID Status Reason Start Date Expiration Date Visits Requ ested Visits Authorized [id number] Closed 03/07/2021 03/07/2022 1 1 Encounter Details Date Type Department Care Team Description 04/17/2021 Office Visit [facility] Arpita Whitney Lo w back pain, non-specific; at [facility] MESSENGER COPY Status post vertebroplasty; [facility] Tra nsient left leg weakness Drive [place] [phone] Social History Tobacco [...] from the original note were not included. [facility] Date [...] standing limited due to back pain [facility] Prescription Monitoring Program was checked. The number of prescriptions reported was 0. Current Medications: Outpatient Medications Marked as Taking for the 04/17/21 encounter (Office Visit) with Arpita Whitney APRN Medication Sig Dispense Refill ??? fluticasone propionate (FLONASE) 50 mcg/actuation Melvin, Suspension as needed. ??? fluorouraciL (EFUDEX) 5 [...] IR Biopsy Spine 07/20/2019 Bobby Marshall MD [facility] INTERVENTIONL RAD ??? IR VERTEBROPLASTY LUMBAR MULTIPLE LEVELS 07/20/2019 IR Vertebroplasty Lumbar Multiple Levels 07/20/2019 Bobby Marshall MD [facility] INTERVENTIONL RAD ??? IR VERTEBROPLASTY THORACIC SINGLE LEVEL 10/25/2020 IR Vertebroplasty Thoracic Single Level 10/25/2020 Matt Chisholm MD [facility] INTERVENTIONL RAD Review of Systems: ROS: Denies [...] y.o. year-old male who presents to the [facility], previously [...] Mr. Koko Zamora's care. Arpita Whitney, MSN, TELEPHONE BETTING CLERK- C, MESSENGER COPY Nurse Practitioner [facility] [address] [phone] / [facility] documented in this encounter Plan of Treatment Upcoming Encounters Date Type Specialty Care Team Description 08/08/2022 Office Visit Gastroenterology Negra Collins MD [facility] GASTROENTEROLOGY DEPT [place], [place] [address] (Wo rk) 09/05/2022 Appointment Cardiology Trinity Reid MD [facility] CARDIOLOGY [place], [place] [address] (Wo rk) 09/05/2022 Office Visit Cardiology Trinity Reid MD [facility] CARDIOLOGY [place], [place] [address] (Wo rk) Scheduled Referrals Name [...] limbs documented in this encounter Care Teams Vehicle Fare Collector Relationship Specialty Start Date End Date Bobby Das MD PCP - General 10/02/[address] [place] [address] [place] [phone] documented as of this encounter
--- OUTSIDE RECORDS SUMMARY | 2022-07-31 09:01 | XMS_ITS | Encounter Summary ---
:1940 Author [address] [facility] [place] [address] Care Team Providers Name Role Phone Bobby Das MD Primary Care Provider Encounter Details Date Type Department Care Team Description 05/15/2022 Ancillary Procedure Radiology Library at [facility], Lavell Butt, [facility] [place] [address] VASCULAR SURGERY [phone] [place] [phone] (Wo rk) Social History Tobacco Use Types [...] [facility] DR GASTROENTEROLOGY DEPT [place], [place] [address] (Wo rk) 09/05/2022 Appointment Cardiology Trinity Reid MD [facility] CARDIOLOGY [place], [place] [address] (Wo rk) 09/05/2022 Office Visit Cardiology Trinity Reid MD [facility] CARDIOLOGY [place], [place] [address] (Wo rk) documented as of [...] Organization Address City/State/ZIP Code Phon e Number [place], [place] documented in this encounter Visit Diagnoses Not on filedocumented in this encounter Care Teams Admissions Counselor Relationship Specialty Start Date End Date Bobby Das MD PCP - General 10/02/[address] [place] [address] [place] [phone] documented as of this encounter
--- OUTSIDE RECORDS SUMMARY | 2022-07-31 09:02 | XMS_ITS | Encounter Summary ---
:1940 Author Organization [facility] [place] [address] Care Team Providers Name Role Phone Bobby Das MD Primary Care Provider Reason for Visit Reason Onset Date Comments Pre Procedure Call 08/01/2015 Encounter Details Date Type Department Care Team Description 08/01/2015 Telephone Dermatology at [facility] Cassy Jacobson, Pre Procedure Call [address] [place] [address] Social History Tobacco Use Types Packs/Day [...] Collins MD [facility] DR GASTROENTEROLOGY DEPT [place], [place] [address] (Wo rk) 09/05/2022 Appointment Cardiology Trinity Reid MD [facility] CARDIOLOGY [place], [place] [address] (Wo rk) 09/05/2022 Office Visit Cardiology Trinity Reid MD [facility] ER CARDIOLOGY [place], [place] [address] (Wo rk) documented as of this encounter Visit Diagnoses Not on filedocumented in this encounter Care Teams Operations Administrator Relationship Specialty Start Date End Date Bobby Das MD PCP - General 10/02/[address] [place] [address] [place] [phone] documented as of this encounter
--- OUTSIDE RECORDS SUMMARY | 2022-07-31 09:02 | XMS_ITS | Encounter Summary ---
:1940 Author Organization [facility] [place] [address] Care Team Providers Name Role Phone Bobby Das MD Primary Care Provider Encounter Details Date Type Department Care Team Description 12/16/2016 [facility] [place] [phone] Social History Tobacco Use Types Packs/Day [...] MD [facility] GASTROENTEROLOGY DEPT [place], [place] [address] (Wo rk) 09/05/2022 Appointment Cardiology Trinity Reid MD [facility] CARDIOLOGY [place], [place] [address] (Wo rk) 09/05/2022 Office Visit Cardiology Trinity Reid MD [facility] CARDIOLOGY [place], [place] [address] (Wo rk) documented as of this encounter Visit Diagnoses Not on filedocumented in this encounter Care Teams Community Integration Specialist Relationship Specialty Start Date End Date Bobby Das MD PCP - General 10/02/[address] [place] [address] [place] [phone] documented as of this encounter
--- OUTSIDE RECORDS SUMMARY | 2022-07-31 09:02 | XMS_ITS | Encounter Summary ---
:1940 Author Organization [facility] [place] [address] Care Team Providers Name Role Phone Bobby Das MD Primary Care Provider Encounter Details Date Type Department Care Team Description 07/26/2015 External Results Medical Records Provider, Scanning [facility] [place] [phone] Social History Tobacco Use Types Packs/Day Years Used Date Current Some Day Smoker 1 50 Smokeless Tobacco: Never Used Sex Assigned at Date Recorded Not on file documented as of this encounter Plan of Treatment Upcoming Encounters Date Type Specialty Care Team Description 08/08/2022 Office Visit Gastroenterology Negra Collins MD [facility] GASTROENTEROLOGY DEPT [place], [place] [address] (Wo rk) 09/05/2022 Appointment Cardiology Trinity Reid MD [facility] CARDIOLOGY [place], [place] [address] (Wo rk) 09/05/2022 Office Visit Cardiology Trinity Reid MD [facility] CARDIOLOGY [place], [place] [address] (Wo rk) documented as of [...] on filedocumented in this encounter Care Teams Lockstitch Waistline Joiner Relationship Specialty Start Date End Date Bobby Das MD PCP - General 10/02/[address] [place] [address] [place] [phone] documented as of this encounter
--- OUTSIDE RECORDS SUMMARY | 2022-07-31 09:02 | XMS_ITS | Encounter Summary ---
:1940 Author Organization [facility] [place] [address] Care Team Providers Name Role Phone Bobby Das MD Primary Care Provider Encounter Details Date Type Department Care Team Description 05/13/2018 Ancillary Procedure Radiology Library at Bobby Almaguer MD [place] [address] [place] [phone] (Wo rk) Social History Tobacco Use Types Packs/Day Years Used Date Current Some Day Smoker 1 50 Smokeless Tobacco: Never Used Sex Assigned at Date Recorded Not on file documented as of this encounter Plan of Treatment Upcoming Encounters Date Type Specialty Care Team Description 08/08/2022 Office Visit Gastroenterology Negra Collins MD [facility] DR GASTROENTEROLOGY DEPT [place], [place] [address] (Wo rk) 09/05/2022 Appointment Cardiology Trinity Reid MD [facility] CARDIOLOGY [place], [place] [address] (Wo rk) 09/05/2022 Office Visit Cardiology Trinity Reid MD [facility] CARDIOLOGY [place], [place] [address] (Wo rk) documented as of [...] Organization Address City/State/ZIP Code Phon e Number [place], [place] documented in this encounter Visit Diagnoses Not on filedocumented in this encounter Care Teams Manager Food Safety Relationship Specialty Start Date End Date Bobby Das MD PCP - General 10/02/[address] [place] [address] [place] [phone] documented as of this encounter
--- OUTSIDE RECORDS SUMMARY | 2022-07-31 09:02 | XMS_ITS | Encounter Summary ---
:1940 Author Organization [facility] [place] [address] Care Team Providers Name Role Phone Bobby Das MD Primary Care Provider Reason for Visit Reason Comments Skin Check Encounter Details Date Type Department Care Team Description 03/29/2014 Office Visit Dermatology at [facility], Kyle c ell carcinoma (Primary Dx); Nba CARCAMO Verruca vulgaris; [address] [place] (actinic keratosis) [facility] B DERMATOLOGY [place], [place] [phone] Social History Tobacco Use Types Packs/Day Years [...] sun over the years. He lives in [place], [place]. Physical examination reveals a pleasant, 73-year-old gentleman who has a pearly, 1-cm papule on the right lateral canthus, site A; and a pearly papule about 8 mm in diameter, site C, on the right yarsani at the scalp line. At the central [...] BCCAs, right lateral canthus and right lateral yarsani, sites A and C, respectively. a. After [...] Gastroenterology Negra Collins MD [facility] GASTROENTEROLOGY DEPT [place], [place] [address] (Wo rk) 09/05/2022 Appointment Cardiology Trinity Reid MD [facility] CARDIOLOGY [place], [place] [address] (Wo rk) 09/05/2022 Office Visit Cardiology Trinity Reid MD [facility] CARDIOLOGY [place], [place] [address] (Wo rk) documented as of this encounter Visit Diagnoses Diagnosis Basal cell carcinoma - Primary Basal cell carcinoma of skin, site unspe cified Verruca vulgaris Viral warts, unspecified [place] (actinic keratosis) Actinic keratosis documented in this encounter Care Teams Transport Corps Officer Relationship Specialty Start Date End Date Bobby Das MD PCP - General 10/02/[address] [place] [address] [place] [phone] documented as of this encounter
--- OUTSIDE RECORDS SUMMARY | 2022-07-31 09:02 | XMS_ITS | Encounter Summary ---
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 Chano Rebolledo MD [facility] [address] [place] [address] [place] [address] [place] [address] Phone: Fax: Referral ID Status Reason Start Date Expiration Date Visits V isits Requested Authorized [id number] Denied Consult, 12/18/2016 12/18/2017 1 0 Test & Treat Encounter Details Date Type Department Care Team Description 12/18/2016 Telephone Pain Management at Chano Freitas MD [facility] [place] [address] PAIN CLINIC [phone] [place], [place] [address] (Wo rk) Social History Tobacco [...] I will make a heme/oncology consultation with [facility] for the patient in the meantime. documented in this encounter Plan of Treatment Upcoming Encounters Date Type Specialty Care Team Description 08/08/2022 Office Visit Gastroenterology Negra Collins MD [facility] GASTROENTEROLOGY DEPT [place], [place] [address] (Wo rk) 09/05/2022 Appointment Cardiology Trinity Reid MD [facility] CARDIOLOGY [place], [place] [address]375 (Wo rk) 09/05/2022 Office Visit Cardiology Trinity Reid MD [facility] CARDIOLOGY [place], [place] [address]375 (Wo rk) Scheduled Referrals Name Type Priority Associated Diagnoses Order S chedule Referral to Outpatient Referral Routine Neoplasm of Ordered: Hematology and uncertain behavior 017 Oncology of respiratory organ documented as of this encounter Visit Diagnoses Diagnosis Neoplasm of uncertain behavior of respir atory organ Neoplasm of uncertain behavior of other and unspecified respiratory organs documented in this encounter Care Teams Drywall Metal Stud Worker Relationship Specialty Start Date End Date Bobby Das MD PCP - General 10/02/[address] [place] [address] [place] [phone] documented as of this encounter
--- OUTSIDE RECORDS SUMMARY | 2022-07-31 09:02 | XMS_ITS | Encounter Summary ---
:1940 Author Organization [facility] [place] [address] Care Team Providers Name Role Phone Bobby Das MD Primary Care Provider Reason for Visit Reason Comments Basal Cell Carcinoma Encounter Details Date Type Department Care Team Description 08/24/2015 Procedure visit Dermatology at [facility] Leo Solo BCC (basal cell Road MD Delores carcinoma of skin) [address] [facility] [phone] [facility] [phone] [place] [address] Social History Tobacco Use Types Packs/Day Years [...] when the wound is well cared for. [facility] drainage or slight yellow film on your [...] the hospital number and ask for the [facility] specialist. Wound Care for Sutured Wounds You [...] any questions, please call our clinic at [phone]. After 5PM and on weekends, please call the hospital number and ask for the [facility] specialist. documented in this encounter Progress Notes Leo Solo MD - 08/24/2015 3:25 PM EDT Operative Report Patient name: Koko Zamora : 1940 Date: 08/24/2015 Staff Surgeon: Leo Solo MD, PhD Public Safety Telecommunicator I: Cassy Jacobson, Yolanda Verdin, Etta Burciaga, Gloria Culver MD Rn New Graduate: Kourtney Cabrera Pre-operative diagnosis: Basal cell carcinoma Post-operative diagnosis: Basal cell carcinoma Location: Right mormon Procedure: Mohs micrographic surgery Indication for Mohs micrographic surgery: Critical anatomic location Stages: 2 Final defect size: 3.6 x 2.0 cm Stage I The nature and purpose of the procedure, associated risks, possible consequences and complications,and alternative forms of treatment were explained in detail. Informed consent and permission to takephotographs were obtained. The site was confirmed with the patient/authorized sales representative health insurance/referring physician and a pre-operative time-out was conducted [...] 08/24/2015 Staff Surgeon: Leo Solo MD, PhD Public Safety Telecommunicator I: Yolanda Rivera, Estefania Welch Clinical Diagnosis: 3.6 x 2.0 cm surgical defect secondary to Mohs microscopically controlled excision of basal cell carcinoma Location: Right mormon Procedure: Transposition flap repair Due to the [...] MD [facility] GASTROENTEROLOGY DEPT [place], [place] [address] ([facility]) 09/05/2022 Appointment Cardiology Trinity Reid MD [facility] CARDIOLOGY [place], [place] [address] ([facility]) 09/05/2022 Office Visit Cardiology Trinity Reid MD [facility] CARDIOLOGY [place], [place] [address] ([facility]) documented as of this encounter Visit Diagnoses Diagnosis BCC (basal cell carcinoma of skin) Basal cell carcinoma of skin, site unspe cified documented in this encounter Care Teams Direct Care Provider Relationship Specialty Start Date End Date Bobby Das MD PCP - General 10/02/[address] [place] [address] [place] [phone] documented as of this encounter
--- OUTSIDE RECORDS SUMMARY | 2022-07-31 09:02 | XMS_ITS | Encounter Summary ---
:1940 Author Organization [facility] [address] Care Team Providers Name Role Phone Bobby Das MD Primary Care Provider Reason for Referral Diagnostic Test (Routine) - Closed Specialty Diagnoses / Procedures Referred By Contact Refer red To Contact Radiology Diagnoses 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, sequela Closed compression fracture of L1 lumbar vertebra with delayed healing, subsequent encounter Malignant neoplasm of prostate Zbigniew Thompson PA [facility] Interventionl Rad Procedures IR Vertebroplasty Lumbar Multiple Levels IR Vertebral Augmentation Lumbar Single Level [facility] [place] [address] [place] [address] Fax: Referral ID Status Reason Start Date Expiration Date Visits V isits Requested Authorized [id number] Closed Specialty 07/13/2019 07/12/2020 1 1 Service Requested iagnostic Test (Routine) - Closed Specialty Diagnoses / Procedures Referred By Contact Refer red To Contact Radiology Diagnoses Closed compression fracture of L1 lumbar vertebra with delayed healing, subsequent encounter Malignant neoplasm of prostate Zbigniew Thompson PA [facility] Interventionl Rad Procedures IR [place] [address] [place] [address] Fax: Referral ID Status Reason Start Date Expiration Date Visits V isits Requested Authorized [id number] Closed Specialty 07/13/2019 07/12/2020 1 1 Service Requested Reason for Visit Diagnostic Test (Routine) - Closed Specialty Diagnoses / Procedures Referred By Contact Refer red To Contact Radiology Diagnoses 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, sequela Closed compression fracture of L1 lumbar vertebra with delayed healing, subsequent encounter Malignant neoplasm of prostate Zbigniew Thompson, PA [facility] Interventionl Rad Procedures IR Vertebroplasty Lumbar Multiple Levels IR Vertebral Augmentation Lumbar Single Level [facility] [place] [address] [place] [address] Fax: Referral ID Status Reason Start Date Expiration Date Visits V isits Requested Authorized [id number] Closed Specialty 07/13/2019 07/12/2020 1 1 Service Requested Encounter Details Date Type Department Care Team Description 07/20/2019 Hospital Encounter [facility] [place] [facility] Elmer Loya, Closed compression fracture of L1 lumbar vertebra with delayed healing, subsequent encounter; [facility] Malignant neoplasm of prostate; Drive [facility] Age-related osteoporosis wit h current pathological fracture of vertebra, sequela [place], [place] CENTER [address] [facility] [phone] [place] [address] Social History Tobacco Use Types Packs/Day Years [...] Martínez RN - 07/20/2019 10:06 AM EDT [facility] Discharge Instructions for Vertebroplasty Your vertebroplasty [...] is during regular office hours, please call [phone]. If it is after regular office hours, oron weekends or holidays, please call [phone] and ask to speak to the Gas Technician on callfor Interventional Radiology. XXX You [...] : 1940 AGE: 78 y.o. Address: [address] [place] [address] [place] [phone] (home) Mobile: No relevant phone numbers on [...] Collins MD [facility] GASTROENTEROLOGY DEPT [place], [place] [address] (Wo rk) 09/05/2022 Appointment Cardiology Trinity Reid MD [facility] CARDIOLOGY [place], [place] [address] (Wo rk) 09/05/2022 Office Visit Cardiology Trinity Reid MD [facility] CARDIOLOGY [place], [place] [address] (Wo rk) documented as of [...] made and a 13g a introducer needle ([employer]) was advanced through the right pedicle [...] made an d a 13ga introducer needle ([employer]) was advanced through the left pedicle [...] signed by: Bobby Sullivan MD, [facility] ([phone]), at 07/20/2019 1:20 PM Procedure Note Bobby [...] made and a 13g a introducer needle ([employer]) was advanced through the right pedicle [...] made an d a 13ga introducer needle ([employer]) was advanced through the left pedicle [...] For questions regarding this report, please contact [facility] number below. Elmer Loya MD IMG IR [...] made and a 13g a introducer needle ([employer]) was advanced through the right pedicle [...] made an d a 13ga introducer needle ([employer]) was advanced through the left pedicle [...] signed by: Bobby Sullivan MD, [facility] ([phone]), at 07/20/2019 1:20 PM Procedure Note Bobby [...] made and a 13g a introducer needle ([employer]) was advanced through the right pedicle [...] made an d a 13ga introducer needle ([employer]) was advanced through the left pedicle [...] signed by: Bobby Sullivan MD, [facility] ([phone]), at 07/20/2019 1:20 PM Elmer Loya MD IMG IR ORDERABLES Surgical Pathology Report (07/20/2019 10:45 AM EDT) Component Value Ref Test Analysis Performed At [facility] Method Time Signature Surgical [id number] ? [facility] The signing pathologist has (i) [...] Spence MD Verified: ??07/22/2019 ?Pathologist Performed at: ??-[facility] Dept. of Pathology, [place], [place] DISCUSSION Deeper levels into the biopsy [...] Organization Address City/State/[place] [address] Specimen to Pathology (07/20/2019 8:41 AM EDT) Specimen Anatomical Collection Method Collection Time Receive d Time (Source) Location / / Volume Laterality AP Specimen 07/20/2019 8:41 AM 9 8:41 EDT AM EDT Narrative [facility] - 07/20/2019 8:41 AM EDT Specimen requisition ordered. ??Separate Pathology report to follow Elmer Loya MD PATHOLOGY/CYTOLOGY ORDERABLE S Performing Organization Address City/State/[place] [address] documented in this encounter [...] mg documented in this encounter Care Teams Dental Surgery Doctor Relationship Specialty Start Date End Date Bobby Das MD PCP - General 10/02/[address] [place] [address] [place] [phone] documented as of this encounter
--- OUTSIDE RECORDS SUMMARY | 2022-07-31 09:02 | XMS_ITS | Encounter Summary ---
:1940 [place] [address] Care Team Providers Name Role Phone Bobby Das MD Primary Care Provider Reason for Visit Reason Comments Wound Check Encounter Details Date Type Department Care Team Description 10/25/2015 Clinical Support Dermatology at Christine Gonzalez MD Follow up [facility] [address] [facility] [place] [address] [place] [address] [phone] (Wo rk) Social History Tobacco Use Types Packs/Day Years Used Date Current Some Day Smoker 1 50 Smokeless Tobacco: Never Used Sex Assigned at Date Recorded Not on file documented as of this encounter Progress Notes Leo Solo MD - 10/25/2015 1:01 PM EST CC: Wound check HPI: Patient is a 75 y.o. male with history of basal cell carcinoma, right worship, s/p Mohs, repaired by transposition flap on who presents for wound check. Denies complications. States when he blinks he can feel the scar tissue. ROS: Otherwise well. No other skin complaints. Exam: General: No acute distress Skin: Limited examination of right worship shows a well-healed flap with hypertrophy at the edge. Assessment and Plan 1. Basal cell carcinoma, right worship, s/p Mohs, repaired by transposition flap Kenalog [...] Gastroenterology Negra Collins MD [facility] DR GASTROENTEROLOGY DEPT [place], [place] [address] (Wo rk) 09/05/2022 Appointment Cardiology Trinity Reid MD [facility] CARDIOLOGY [place], [place] [address] (Wo rk) 09/05/2022 Office Visit Cardiology Trinity Reid MD [facility] CARDIOLOGY [place], [place] [address] (Wo rk) documented as of this encounter Visit Diagnoses Diagnosis Follow up documented in this encounter Care Teams Community Development Specialist Relationship Specialty Start Date End Date Bobby Das MD PCP - General 10/02/[address] [place] [address] [place] [phone] documented as of this encounter
--- OUTSIDE RECORDS SUMMARY | 2022-07-31 09:02 | XMS_ITS | Encounter Summary ---
:1940 Author Organization [facility] [place] [address] Care Team Providers Name Role Phone Bobby Das MD Primary Care Provider Reason for Referral Diagnostic Test (Routine) - Specialty Diagnoses / Procedures Referred By Contact Refer ramila To Contact Radiology Diagnoses Chest pain, unspecified type Chronic abdominal pain Chano Rebolledo MD [facility] Rad Ct Scan Procedures CT Chest w Contrast CT Chest wo Contrast (Generic) [facility] [place] [address] [place] [address] Referral ID Status Reason Start Date Expiration Visits Visits Date Requested Authorized [id number] Specialty 12/13/2016 12/13/2017 1 1 Service Requested Consultation (Routine) - Closed Specialty Diagnoses / Procedures Referred By Contact Refer ramila To Contact Neurology Diagnoses Radiculopathy of cervical region Chano Rebolledo MD [facility] Neurology 3c [facility] [place] [address] [place] [address] Referral ID Status Reason Start Date Expiration Date Visits V isits Requested Authorized [id number] Closed Test Only 12/13/2016 12/13/2017 1 1 Diagnostic Test (Routine) - Closed Specialty Diagnoses / Procedures Referred By Contact Refer red To Contact Radiology Diagnoses Chest pain, unspecified type Chronic abdominal pain Chano Rebolledo MD [facility] Rad Ct Scan Procedures CT Abdomen & Pelvis w Contrast [facility] [place] [address] [place] [address] Referral ID Status Reason Start Date Expiration Date Visits V isits Requested Authorized [id number] Closed Specialty 12/13/2016 12/13/2017 1 1 Service Requested Reason for Visit Reason Comments Pain Management Neck Pain Bilateral Arm Pain burning across sternum and r ibs, both sides Consultation (Routine) - Closed Specialty Diagnoses / Procedures Referred By Contact Refer red To Contact Pain Management Diagnoses cervical radiculopathy Bobby Das MD [facility] [address] [place] [address] [address] [place], [place] Drive [address] [place] [address] Fax: Referral ID Status Reason Start Date Expiration Date Visits V isits Requested Authorized [id number] Closed Consult, 11/22/2016 11/22/2017 1 1 Test & Treat Encounter Details Date Type Department Care Team Description 12/13/2016 Office Visit Pain Management at [facility], Chest adrianna n, unspecified type; Jose Sullivan MD Chronic abdominal pain; [facility] Radiculop athy of cervical region [facility] [address] [place], [place] CL[place]IC [address] [place] [address] Social History Tobacco Use Types [...] Rebolledo MD - 12/13/2016 1:00 PM EST [facility] [place] [address] Phone: PAIN MANAGEMENT NEW PATIENT / CONSULTATION NOTE DATE OF VISIT 12/13/2016 Patient Koko Zamora 1940 REFERRING PROVIDER Bobby Das MD [address] [place] [address] [place] [address] PRIMARY CARE PROVIDER Bobby Das MD CHIEF [...] Aspirin Other (See Comments) 06/28/2011 MEDICATIONS The [place] and [place] Prescription Monitoring Program were checked & no [...] restless FUNCTIONAL /SOCIAL Lives with: 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 Follow up: -Patient will be called after results are obtained. Koko J Zamora had the opportunity to ask questions and indicated that all questions were answered to his satisfaction. Thank you for this referral, Bobby Das MD [address] [place] [phone]. Chano Rebolledo MD Leonel Orozco MD - [...] [facility] DR GASTROENTEROLOGY DEPT [place], [place] [address] (Wo rk) 09/05/2022 Appointment Cardiology Trinity Reid MD [facility] CARDIOLOGY [place], [place] [address] (Wo rk) 09/05/2022 Office Visit Cardiology Trinity Reid MD [facility] CARDIOLOGY [place], [place] [address] (Wo rk) Scheduled Referrals Name [...] site documented in this encounter Care Teams Asw/Asuw Tactical Air Controller Relationship Specialty Start Date End Date Bobby Das MD PCP - General 10/02/[address] [place] [address] [place] [phone] documented as of this encounter
--- OUTSIDE RECORDS SUMMARY | 2022-07-31 09:02 | XMS_ITS | Encounter Summary ---
:1940 Author Organization [facility] [place] [address] Care Team Providers Name Role Phone Bobby Das MD Primary Care Provider Encounter Details Date Type Department Care Team Description 12/20/2016 Telephone Pain Management at [facility] Kristin Schultz, RN [facility] [place] [address] Social History Tobacco Use Types Packs/Day Years Used Date Current Some Day Smoker 1 50 Smokeless Tobacco: Never Used Sex Assigned at Date Recorded Not on file documented as of this encounter Miscellaneous Notes Telephone Encounter - Kristin Schultz LPN - 12/20/2016 11:02 AM EST Pt called requesting that the Referral to Hematology and Oncology be sent to [facility] [place] [place]. Will Follow up up with the pain clinic after appointment. documented in this encounter Plan of Treatment Upcoming Encounters Date Type Specialty Care Team Description 08/08/2022 Office Visit Gastroenterology Negra Collins MD [facility] GASTROENTEROLOGY DEPT [place], [place] [address] (Wo rk) 09/05/2022 Appointment Cardiology Trinity Reid MD [facility] CARDIOLOGY [place], [place] [address] (Wo rk) 09/05/2022 Office Visit Cardiology Trinity Reid MD [facility] CARDIOLOGY [place], [place] [address] (Wo rk) documented as of this encounter Visit Diagnoses Not on filedocumented in this encounter Care Teams Full Stack Python Developer Relationship Specialty Start Date End Date Bobby Das MD PCP - General 10/02/[address] [place] [address] [place] [phone] documented as of this encounter
--- OUTSIDE RECORDS SUMMARY | 2022-07-31 09:02 | XMS_ITS | Encounter Summary ---
:1940 Author Organization [place] [address] Care Team Providers Name Role Phone Bobby Das MD Primary Care Provider Encounter Details Date Type Department Care Team Description 06/26/2018 Ancillary Procedure Radiology Library at Bobby Almaguer MD [facility] [address] [place] [phone] (Wo rk) Social History Tobacco Use Types Packs/Day Years Used Date Current Some Day Smoker 1 50 Smokeless Tobacco: Never Used Sex Assigned at Date Recorded Not on file documented as of this encounter Plan of Treatment Upcoming Encounters Date Type Specialty Care Team Description 08/08/2022 Office Visit Gastroenterology Negra Collins MD [facility] DR GASTROENTEROLOGY DEPT [place], [place] [address] (Wo rk) 09/05/2022 Appointment Cardiology Trinity Reid MD [facility] CARDIOLOGY [place], [place] [address] (Wo rk) 09/05/2022 Office Visit Cardiology Trinity Reid MD [facility] CARDIOLOGY [place], [place] [address] (Wo rk) documented as of [...] Organization Address City/State/ZIP Code Phon e Number [employer], [place] documented in this encounter Visit Diagnoses Not on filedocumented in this encounter Care Teams Pamphlet Distributor Relationship Specialty Start Date End Date Bobby Das MD PCP - General 10/02/[address] [place] [address] [place] [address] documented as of this encounter
--- OUTSIDE RECORDS SUMMARY | 2022-07-31 09:02 | XMS_ITS | Encounter Summary ---
:1940 Author Organization [facility] [place] [address] Care Team Providers Name Role Phone Bobby Das MD Primary Care Provider Encounter Details Date Type Department Care Team Description 07/25/2015 Hospital Encounter Laboratory Leo Solo, [facility] [place] [address]-DERMATOLOGY [place], [place] [address] (Wo rk) Social History Tobacco [...] MD [facility] GASTROENTEROLOGY DEPT [place], [place] [address] (Wo rk) 09/05/2022 Appointment Cardiology Trinity Reid MD [facility] CARDIOLOGY [place], [place] [address] (Wo rk) 09/05/2022 Office Visit Cardiology Trinity Reid MD [facility] ER CARDIOLOGY [place] [address] (Wo rk) documented as of this encounter Procedures Procedure Name Priority Date/Time Associated Diagnosis Comme nts SURGICAL PATHOLOGY Routine 07/25/2015 9:51 AM Res ults for this REPORT EDT procedure are i n the results section. documented in this encounter Results Surgical Pathology Report (07/25/2015 9:51 AM EDT) Component Value Ref Test Analysis Performed At [facility] Method Time Signature Surgical The signing pathologist has (i) examined the relevant preparation(s) for the [facility] Pathology specimen(s) and (ii) rendered or confirmed the diagnosis(e s). [facility] Report Accession Number: [id number] . ?Surgic al Pathology DIAGNOSIS CONSULTATION CASE Outside slides labeled [id number], collection date 07/03/2015 . Skin, right amish, excision: ?- ??BASAL CELL CARCINOMA, INFILTRATIVE TYPE [...] CONSULTATION CASE A - 3 slides labeled [id number], collection date 07/03/2015. [id number] Report to: [facility] Surgical Pathology Department [facility], [address], 2nd Floor [address] [place], [place] ??[address] SPECIMEN PROCESSING [facility] ([facility]) pathology slide(s) are reviewed. ??Refer to Diagnosis and Specimen Submitted for specific case infor arpan. For the full text of the [facility] ([facility]) report(s) please refer to Non-DH Documentati on Pathology in the electronic health record (eDH). Specimen (Source) Anatomical Collection Method Collection Time Re ceived Time Location / / Volume Laterality 07/25/2015 9:51 AM EDT Leo Sool MD PATHOLOGY/CYTOLOGY ORDERABLE S Performing Organization Address City/State/[place] [address] [facility] documented in this encounter Visit Diagnoses Not on filedocumented in this encounter Care Teams Audit Senior Associate Relationship Specialty Start Date End Date Bobby Das MD PCP - General 10/02/[address] [place] [address] [place] [phone] documented as of this encounter
--- OUTSIDE RECORDS SUMMARY | 2022-07-31 09:02 | XMS_ITS | Encounter Summary ---
:1940 Author Organization [facility] [place] [address] Care Team Providers Name Role Phone Bobby Das MD Primary Care Provider Encounter Details Date Type Department Care Team Description 07/20/2019 Laboratory Lab 3L Ifrah Gastrointestina l Appointment [facility] hemorrhag e, unspecified Hospital gastrointestinal [facility] [place] [phone] Social History Tobacco Use Types Packs/Day Years [...] [facility] DR GASTROENTEROLOGY DEPT [place], [place] [address] (Wo rk) 09/05/2022 Appointment Cardiology Trinity Reid MD [facility] CARDIOLOGY [place], [place] [address] (Wo rk) 09/05/2022 Office Visit Cardiology Trinity Reid MD [facility] CARDIOLOGY [place], [place] [address] (Wo rk) documented as of this encounter Procedures Procedure Name Priority Date/Time Associated Diagnosis Comme [facility] HEMOGRAM Routine 07/20/2019 8:18 Gastrointestinal Results [...] Time Signature WBC 6.0 4.0 - 9.5 [facility] x[facility](3[facility] LABORATORY RBC 4.50 (L) 4.58 - [facility] 5.54 [facility] x10(6)/[facility] LABORATORY Hemoglobin 14.8 13.7 - [facility] 16.5 gm/dL [facility] LABORATORY Hematocrit 43.9 40.5 - [facility] 48.5 % [facility]AT[facility] MCV 97.6 (H) 82.9 - [facility] 93.1 [facility] LABORATORY MCH 32.9 (H) 27.5 - [facility] 32.1 pg [facility] MCHC 33.7 32.0 - [facility] 35.7 gm/dL [facility] Platelets 164 145 - 357 [facility] x10(3)/[facility] LABORATORY RDWSD 49.3 (H) 36.0 - [facility] 45.0 [facility] LABORATORY RDWCV 13.6 11.4 - [facility] 13.8 % [facility] MPV 10.0 7.6 - 12.9 [facility] LABORATORY nRBC % Auto 0.0 % [facility] LABORATORY nRBC Abs Auto 0.000 0.000 - [facility] 0.000 [facility] x10(3)/[facility] LABORATORY Specimen Anatomical Collection Method Collection Time Receive d Time (Source) Location / / Volume Laterality Blood specimen 07/20/2019 8:18 AM 019 8:21 (specimen) EDT AM EDT Resulting Agency Comment Spec In Lab Bobby Marshall MD HEMATOLOGY ORDERABLES Performing Organization Address City/State/ZIP [place] [address] Prothrombin Time (07/20/2019 8:18 AM EDT) P athologist Signature PT 11.3 9.4 - 12.5 [facility] LABORATORY INR 1.0 [facility] [...] Organization Address City/State/ZIP [place] [address] documented in this encounter Visit Diagnoses Diagnosis Gastrointestinal hemorrhage, unspecified gastrointestinal hemorrhage type documented in this encounter Care Teams Patient Service Specialist Relationship Specialty Start Date End Date Bobby Das MD PCP - General 10/02/[address] [place] [address] [place], [place] [phone] documented as of this encounter
--- OUTSIDE RECORDS SUMMARY | 2022-07-31 09:02 | XMS_ITS | Encounter Summary ---
:1940 Author Organization [facility] [place] [address] Care Team Providers Name Role Phone Bobby Das MD Primary Care Provider Reason for Visit Reason Comments Follow-up Encounter Details Date Type Department Care Team Description 05/31/2014 [facility] of basal cell Nba CARCAMO carcinoma (Primary [address] Dx) [facility] B DERMATOLOGY [place], [place] [address] [phone] Social History Tobacco Use Types Packs/Day Years Used Date Current Some Day Smoker 1 50 Smokeless Tobacco: Never Used Sex Assigned at Date Recorded Not on file documented as of this encounter Patient Instructions Patient InstructionsSupriya Louis LPN - 05/31/2014 1:34 PM EDT Images from the original note were not included. [facility] Actinic Keratosis: After Your Visit Your [...] more? Visit our health information library at [email or web address] You can also view health information on [employer], your personal patient account. Log in or sign up today. Enter L364 in the search box to learn more about Actinic Keratosis: After Your Visit. ?? [id number] [employer]. Care instructions adapted under license by [facility]. This care instruction is for use with your licensed healthcare professional. If you have questionsabout a medical condition or this instruction, always ask your healthcare professional. [employer] disclaims any warranty or liability for your use of this information. Content Version: [id number]; Last Revised: December 22, 2012 documented in this encounter Progress Notes Hammer, Cy J, MD - 05/31/2014 2:08 PM EDT Problem: Follow up for repeat skin checkup. Shadi follows up after last being seen in March. 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 I also treated a verruca vulgaris on [...] MD [facility] GASTROENTEROLOGY DEPT [place], [place] [address] (Wo rk) 09/05/2022 Appointment Cardiology Trinity Reid MD [facility] [address] [place], [place] [address] (Wo rk) 09/05/2022 Office Visit Cardiology Trinity Reid MD [facility] [address] [place], [place] [address] (Rebekah rojas) documented as of this encounter Visit Diagnoses Diagnosis History of basal cell carcinoma - Primar y Personal history of other malignant neop lasm of skin documented in this encounter Care Teams Tallow Maker Relationship Specialty Start Date End Date Bobby Das MD PCP - General 10/02/[address] [place] [address] [place] [address] documented as of this encounter
--- OUTSIDE RECORDS SUMMARY | 2022-07-31 09:02 | XMS_ITS | Encounter Summary ---
:1940 Author Organization [facility] [place] [address] Care Team Providers Name Role Phone Bobby Das MD Primary Care Provider Reason for Visit Reason Comments Basal Cell Carcinoma Consultation (Routine) - Closed Specialty Diagnoses / Procedures Referred By Contact Refer red To Contact Dermatology Diagnoses REQUESTING MOHS PROCEDURE RIGHT EYEBROW FOR LESION REMOVED BUT ADDITIONAL TISSUE REMAINS Bobby Das MD Vidal, Nahid Y, MD [address] [place] [address] [place] [address] [place] [phone] Fax: Referral ID Status Reason Start Date Expiration Date Visits V isits Requested Authorized [id number] Closed Consult, 06/24/2018 06/24/2019 1 1 [facility] Encounter Details Date Type Department Care Team Description 09/23/2018 Procedure visit Dermatology at [facility], Basal cell carcinoma Nicol CARCAMO (BCC) of eyebrow [address] [facility] [address] [place] [address] [phone] Social History Tobacco Use Types Packs/Day Years [...] Llanos MD. Your wound(s) was repaired by dtkx-yo-zemi stitches called a primary repair. You do [...] until your sutures are removed. 5. Some communications administrator may need to be delayed or delegated [...] as often as is recommended by your station usher, for new skin cancers. This is once [...] it. If after hours, please call the cut in station operator or [phone] and ask for the station usher on-call. If you have any non-urgent questions or concerns, please feel free to call my office or contact me through our patient portal, [employer], at [email or web address] How to contact us during business hours Dermatology at [facility] Road: Mohs scheduling or Mohs follow-up appointments: [phone] documented in this encounter Progress Notes Alvaro [...] Who lives with patient (i.e. spouse, children, mcfp/skilled nursing)? Spouse Relevant travel history or future [...] follow up with his or her referring station usher or other skin provider. Summary of Procedure(s): [...] Date: 09/23/2018 Staff Surgeon: Alvaro Llanos MD Nursing/Draw In Hand(s): Assistants: Cassy Jacobson LPN, Jolene Pretty RN, Yolanda Fraser LPN, Savanah Licea CMA Chicken Fancier (s): Cristina Cisneros Amanda Isenor Pre-operative diagnosis: [...] The site was confirmed with the patient/authorized risk control representative/referring physician and/or a photograph form time [...] Right eyebrow Indication: repair of wound for methodist of function/anatomy Final Defect size: 1.5 x [...] Collins MD [facility] GASTROENTEROLOGY [place] [address] (Wo rk) 09/05/2022 Appointment Cardiology Trinity Reid MD [facility] CARDIOLOGY [place], [place] [address] (Wo rk) 09/05/2022 Office Visit Cardiology Trinity Reid MD [facility] CARDIOLOGY [place], [place] [address] (Wo rk) documented as of this encounter Visit Diagnoses Diagnosis Basal cell carcinoma (BCC) of eyebrow documented in this encounter Care Teams Stucco Worker Relationship Specialty Start Date End Date Bobby Das MD PCP - General 10/02/[address] [place] [address] [place] [address] documented as of this encounter
--- OUTSIDE RECORDS SUMMARY | 2022-07-31 09:02 | XMS_ITS | Encounter Summary ---
:1940 Author Organization [facility] Address [facility] [place] [address] Care Team Providers Name Role Phone Bobby Das MD Primary Care Provider Reason for Visit Reason Onset Date Comments Other 07/19/2011 Encounter Details Date Type Department Care Team Description 07/19/2011 Telephone Cardiology at [facility] Chet Nicole MD [facility] [place] [address] CARDIOLOGY DEPT. [phone] [place], [place] [address] (Wo rk) Social History Tobacco [...] Collins MD [facility] GASTROENTEROLOGY DEPT [place], [place] [address] (Wo rk) 09/05/2022 Appointment Cardiology Trinity Reid MD [facility] ER CARDIOLOGY [place], [place] [address] (Wo rk) 09/05/2022 Office Visit Cardiology Trinity Reid MD [facility] ER CARDIOLOGY [place], [place] [address] (Wo rk) documented as of this encounter Visit Diagnoses Not on filedocumented in this encounter Care Teams Finance Mgr Relationship Specialty Start Date End Date Bobby Das MD PCP - General 10/02/[address] [place] [address] [place] [phone] documented as of this encounter
--- OUTSIDE RECORDS SUMMARY | 2022-07-31 09:02 | XMS_ITS | Encounter Summary ---
:1940 Author Organization [facility] [place] [address] Care Team Providers Name Role Phone Bobby Das MD Primary Care Provider Reason for Referral Diagnostic Test (Routine) - Specialty Diagnoses / Procedures Referred By Contact Refer red To Contact Radiology Diagnoses Chest pain, unspecified type Chronic abdominal pain Chano Rebolledo MD [facility] Rad Ct Scan Procedures CT Chest w Contrast CT Chest wo Contrast (Generic) [facility] [place] [address] [place] [address] Referral ID Status Reason Start Date Expiration Visits Visits Date Requested Authorized [id number] Specialty 12/13/2016 12/13/2017 1 1 Service Requested Diagnostic Test (Routine) - Closed Specialty Diagnoses / Procedures Referred By Contact Refer red To Contact Radiology Diagnoses Chest pain, unspecified type Chronic abdominal pain Chano Rebolledo MD [facility] Rad Ct Scan Procedures CT Abdomen & Pelvis w Contrast [place] [address] [place] [address] Referral ID Status Reason Start Date Expiration Date Visits V isits Requested Authorized [id number] Closed Specialty 12/13/2016 12/13/2017 1 1 Service Requested Reason for Visit Diagnostic Test (Routine) - Closed Specialty Diagnoses / Procedures Referred By Contact Refer red To Contact Radiology Diagnoses Chest pain, unspecified type Chronic abdominal pain Chano Rebolledo MD [facility] Rad Ct Scan Procedures CT Abdomen & Pelvis w Contrast [facility] [place] [address] [place] [address] Referral ID Status Reason Start Date Expiration Date Visits V isits Requested Authorized [id number] Closed Specialty 12/13/2016 12/13/2017 1 1 Service Requested Encounter Details Date Type Department Care Team Description 12/17/[address] [facility] [place] [facility]anc[place]o, Chest pain, unspecified type ; [facility] Leonel Sullivan MD Chronic abdominal pain Drive [facility] [address] PAIN CLINIC [phone] [place] [address] Social History Tobacco Use Types [...] Collins MD [facility] GASTROENTEROLOGY DEPT [place], [place] [address] (Wo rk) 09/05/2022 Appointment Cardiology Trinity Reid MD [facility] [address] [place], [place] [address] (Wo rk) 09/05/2022 Office Visit Cardiology Trinity Reid MD [facility] [address] [place], [place] [address] (Wo rk) documented as of [...] 1237 documented in this encounter Care Teams Optical Manager Relationship Specialty Start Date End Date Bobby Das MD PCP - General 10/02/[address] [place] [address] [place] [address] documented as of this encounter
--- OUTSIDE RECORDS SUMMARY | 2022-07-31 09:02 | XMS_ITS | Encounter Summary ---
:1940 Author Organization [facility] Address [facility] [place] [address] Care Team Providers Name Role Phone Bobby Das MD Primary Care Provider Reason for Visit Reason Comments Shortness of Breath Encounter Details Date Type Department Care Team Description 06/28/2011 Office Visit Cardiology at [facility] Chet Nicole SOB (shortness of breath) (P rimary Dx); [facility] GIB (gastrointestinal bleeding); Drive [facility] MVP (mitral valve prolapse) [place] [address] CARDIOLOGY DEPT. [phone] [place], [place] [address] Social History Tobacco Use Types [...] 60 mg/dl is considered ideal. ?? Total inxmlzgdhke-om-CRW ratio: A ratio of 5:1 or lower is recommended. ?? LDL cholesterol: Between 100-129 mg/dL is recommended. Lower than 100 mg/dL is considered ideal. ?? VLDL cholesterol: 30 mg/dL or less is recommended. ?? Triglycerides: Lower than 150 mg/dL is recommended. Where can you learn more? Visit our health information library at [email or web address] at [email or web address]. You can also view health information on [employer], your personal patient account. Log in or sign up today. Enter V788 in the search box to learn more about Cholesterol and Triglycerides Tests: About These Tests. ?? [id number] [employer]. Care instructions adapted under license by [facility]. This care instruction is for use with your licensed healthcare professional. If you have questionsabout a medical condition or this instruction, always ask your healthcare professional. [employer] disclaims any warranty or liability for your [...] valve prolapse) s/p repair Surgery done at [facility] in 2000 ??? Hypertriglyceridemia ??? Adhesive capsulitis of L shoulder ??? Alcohol use Medications: [place]-3 Fatty Acids-Vitamin E (FISH OIL) 1,000 mg [...] [facility] GASTROENTEROLOGY DEPT [place], [place] [address] (Wo rk) 09/05/2022 Appointment Cardiology Trinity Reid MD [facility] CARDIOLOGY [place], [place] [address] (Wo rk) 09/05/2022 Office Visit Cardiology Trinity Reid MD [facility] CARDIOLOGY [place], [place] [address] (Wo rk) documented as of this encounter Procedures Procedure Name Priority Date/Time Associated Diagnosis Comme nts EKG 12-LEAD Routine 06/28/2011 2:59 PM SOB (shortness of Resu lts for this EDT breath) procedure are i n the results section . documented in this encounter Results EKG 12 Lead (06/28/2011 2:59 PM EDT) [facility] gist Method Time Signature Ventricular rate 70 BPM MUSE SYSTEM Atrial Rate 70 BPM MUSE SYSTEM P-R Interval 182 ms MUSE SYSTEM QRS Duration 106 ms MUSE SYSTEM Q-T Interval 406 ms MUSE SYSTEM QTC Calculated 438 ms MUSE SYSTEM (Bezet) Calculated P [place] 60 degrees MUSE SYSTEM Calculated R [place] -51 degrees MUSE SYSTEM Calculated T [place] 32 degrees MUSE SYSTEM INTERPRETATION Normal sinus [...] PM 1 EDT 10:38 AM EDT Chet Niocle MD ECG ORDERABLES Performing Organization Address City/State/ZIP Code Phon e Number MUSE SYSTEM documented in this encounter Visit Diagnoses Diagnosis SOB (shortness of breath) - Primary Shortness of breath GIB (gastrointestinal bleeding) Hemorrhage of gastrointestinal tract, un specified MVP (mitral valve prolapse) s/p repair Mitral valve disorders documented in this encounter Care Teams Director Construction Services Relationship Specialty Start Date End Date Bobby Das MD PCP - General 10/02/[address] [place] [address] [place] [phone] documented as of this encounter
--- OUTSIDE RECORDS SUMMARY | 2022-07-31 09:02 | XMS_ITS | Encounter Summary ---
:1940 [place] [address] Care Team Providers Name Role Phone Bobby Das MD Primary Care Provider Encounter Details Date Type Department Care Team Description 07/13/2019 Orders Only Radiology Alan Brink Gastrointestinal [facility] MD Rosa hemorrhage, unspecified [facility] DR hemorrhage type (Primary [id number] RADIOLOGY DEPT Dx) [phone] [place], [place] [address] Social History Tobacco Use Types [...] file Gets together: Not on file Attends zoroastrianism service: Not on file Active member of [...] MD [facility] GASTROENTEROLOGY DEPT [place], [place] [address] (Wo rk) 09/05/2022 Appointment Cardiology Trinity Reid MD [facility] CARDIOLOGY [place], [place] [address] (Wo rk) 09/05/2022 Office Visit Cardiology Trinity Reid MD [facility] CARDIOLOGY [place], [place] [address] (Wo rk) documented as of this encounter Results Prothrombin Time (07/20/2019 8:18 AM EDT) P athologist Signature PT 11.3 9.4 - 12.5 [facility] INR 1.0 [facility] LABORATORY [...] Organization Address City/State/[place] [address] (ABNORMAL) Hemogram (07/20/2019 8:18 AM EDT) Analysis Performed At Patho logist Time Signature WBC 6.0 4.0 - 9.5 [facility] x10(3)/[facility] LABORATORY RBC 4.50 (L) 4.58 - [facility] 5.54 [facility] x10(6)/[facility] LABORATORY Hemoglobin 14.8 13.7 - [facility] 16.5 gm/dL [facility] LABORATORY Hematocrit 43.9 40.5 - [facility] 48.5 % [facility] LABORATORY MCV 97.6 (H) 82.9 - [facility] 93.1 fL [facility] LABORATORY MCH 32.9 (H) 27.5 - [facility] 32.1 pg [facility] LABORATORY MCHC 33.7 32.0 - [facility] 35.7 gm/dL [facility] LABORATORY Platelets 164 145 - 357 [facility] XIAO x10(3)/[facility] LABORATORY RDWSD 49.3 (H) 36.0 - [facility] 45.0 [facility] LABORATORY RDWCV 13.6 11.4 - [facility] 13.8 % [facility] LABORATORY MPV 10.0 7.6 - 12.9 [facility] LABORATORY nRBC % Auto 0.0 % [facility] LABORATORY nRBC Abs Auto 0.000 0.000 - [facility] 0.000 [facility] x10(3)/[facility] LABORATORY Specimen Anatomical Collection Method Collection Time Receive d Time (Source) Location / / Volume Laterality Blood specimen 07/20/2019 8:18 AM 019 8:21 (specimen) EDT AM EDT Resulting Agency Comment Spec In Lab Bobby Marshall MD HEMATOLOGY ORDERABLES Performing Organization Address City/State/[place] [address] documented in this encounter Visit Diagnoses Diagnosis Gastrointestinal hemorrhage, unspecified gastrointestinal hemorrhage type - Primary documented in this encounter Care Teams Food Science Technician Relationship Specialty Start Date End Date Bobby Das MD PCP - General 10/02/[address] [place] [address] [place] [address] documented as of this encounter
--- OUTSIDE RECORDS SUMMARY | 2022-07-31 09:02 | XMS_ITS | Encounter Summary ---
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 Interventionl Rad Procedures IR Vertebroplasty Lumbar Multiple Levels IR Vertebral Augmentation Lumbar Single Level [facility] [place] [address] [place] [address] Fax: Referral ID Status Reason Start Date Expiration Date Visits V isits Requested Authorized [id number] Closed Specialty 07/13/2019 07/12/2020 1 1 Service Requested iagnostic Test (Routine) - Closed Specialty Diagnoses / Procedures Referred By Contact Refer red To Contact Radiology Diagnoses Closed compression fracture of L1 lumbar vertebra with delayed healing, subsequent encounter Malignant neoplasm of prostate Zbigniew Thompson PA [facility] Interventionl Rad Procedures [place] [address] [place] [address] Fax: Referral ID Status Reason Start Date Expiration Date Visits V isits Requested Authorized [id number] Closed Specialty 07/13/2019 07/12/2020 1 1 Service Requested Reason for Visit Reason Comments Back Pain Consultation (ANDREINA) - Closed Specialty Diagnoses / Procedures Referred By Contact Refer red To Contact [facility] Diagnoses Collapsed vertebra, not elsewhere classified, lumbar region, subsequent encounter for fracture with routine healing Bobby Das MD [facility] Pain And [facility] Spine [address] [place], [place] Drive [address] [place] [address] Phone: Fax: Referral ID Status Reason Start Date Expiration Date Visits V isits Requested Authorized [id number] Closed Consult, 06/30/2019 06/29/2020 1 1 [facility] Encounter Details Date Type Department Care Team Description 07/13/2019 Office Visit [facility] Zbigniew Thompson, Closed compression fracture of L1 lumbar vertebra with delayed healing, subsequent encounter; at [facility] Malignant neoplasm of prostate; [facility] Age -related 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, sequela [place] [address] [phone] Social History Tobacco Use Types Packs/Day Years [...] [facility] DR GASTROENTEROLOGY DEPT [place], [place] [address] (Wo rk) 09/05/2022 Appointment Cardiology Trinity Reid MD [facility] CARDIOLOGY [place], [place] [address] (Wo rk) 09/05/2022 Office Visit Cardiology Trinity Reid MD [facility] CARDIOLOGY [place], [place] [address] (Wo rk) documented as of [...] made and a 13g a introducer needle (Ascenz) was advanced through the right pedicle and [...] made an d a 13ga introducer needle (Ascenz) was advanced through the left pedicle and [...] made and a 13g a introducer needle (Ascenz) was advanced through the right pedicle and [...] made an d a 13ga introducer needle (Ascenz) was advanced through the left pedicle and [...] made and a 13g a introducer needle (Ascenz) was advanced through the right pedicle and [...] made an d a 13ga introducer needle (Ascenz) was advanced through the left pedicle and [...] made and a 13g a introducer needle (Ascenz) was advanced through the right pedicle and [...] made an d a 13ga introducer needle (Ascenz) was advanced through the left pedicle and [...] sequela documented in this encounter Care Teams Programs Director Relationship Specialty Start Date End Date Bobby Das MD PCP - General 10/02/[address] [place] [address] [place] [phone] documented as of this encounter
--- OUTSIDE RECORDS SUMMARY | 2022-07-31 09:02 | XMS_ITS | Encounter Summary ---
:1940 Author Organization [facility] [place] [address] Care Team Providers Name Role Phone Bobby Das MD Primary Care Provider Encounter Details Date Type Department Care Team Description 12/13/2016 Telephone Pain Management [place] [address] Social History Tobacco Use Types Packs/Day [...] Collins MD [facility] DR GASTROENTEROLOGY DEPT [place], [place] [address] (Wo rk) 09/05/2022 Appointment Cardiology Trinity Reid MD [facility] CARDIOLOGY [place], [place] [address] (Wo rk) 09/05/2022 Office Visit Cardiology Trinity Reid MD [facility] CARDIOLOGY [place], [place] [address] (Wo rk) documented as of this encounter Visit Diagnoses Not on filedocumented in this encounter Care Teams Shuttle Repairer Relationship Specialty Start Date End Date Bobby Das MD PCP - General 10/02/[address] [place] [address] [place] [phone] documented as of this encounter
--- OUTSIDE RECORDS SUMMARY | 2022-07-31 09:02 | XMS_ITS | Encounter Summary ---
:1940 Author Organization [facility] [place] [address] Care Team Providers Name Role Phone Bobby Das MD Primary Care Provider Reason for Visit Reason Comments Basal Cell Carcinoma Encounter Details Date Type Department Care Team Description 08/08/2015 [facility] (basal cell Road MD carcinoma of skin) [address] [place] [address] [facility] [place] [place] [address] Social History Tobacco Use Types [...] Our facility does not offer a guest [place] network at this time. We also recommend [...] specified we require that you have a refuse driver, as surgery can be stressful and tiring. If you are being transported from a custodial or other similar facility, we request that someone stay with you during this appointment. We are located in the [facility] at [place], [place]. Please refer to the [facility] website for detailed driving directions ([email or web address]). When you arrive, please park in the upper parking lot. When you enter the building, go to the third floor, the information receptionist area is located on the left [...] If this fails, contact our office at [phone] (after 5PM please call [phone] and ask for the Sand Mill Operator Facing Sand refrigeration insulator). Avoid bending over, heavy lifting (no greater [...] are taking. Our office phone number is [phone]. documented in this encounter Progress Notes Leo Solo MD - 08/08/2015 1:50 PM EDT MOHS SURGICAL CONSULT Chief Complaint: Basal cell carcinoma History of Present Illness: Referring Physician: Dr. Zheng, [facility] (07/03/15) Tumor type: BCC Location of Skin Cancer: Right jew Duration of Presence: 1 year Previous Treatment: [...] acute distress. Skin: Limited examination of right jew reveals a 5 mm erythematous papule. Assessment and Plan 1. BCC, right jew Reviewed treament options including wide local excision, [...] [facility] DR GASTROENTEROLOGY DEPT [place], [place] [address] (Wo rk) 09/05/2022 Appointment Cardiology Trinity Reid MD [facility] CARDIOLOGY [place], [place] [address] (Wo rk) 09/05/2022 Office Visit Cardiology Trinity Reid MD [facility] CARDIOLOGY [place], [place] [address] (Wo rk) documented as of this encounter Visit Diagnoses Diagnosis BCC (basal cell carcinoma of skin) Basal cell carcinoma of skin, site unspe cified documented in this encounter Care Teams Frame Sample And Pattern Supervisor Relationship Specialty Start Date End Date Bobby Das MD PCP - General 10/02/[address] [place] [address] [place] [phone] documented as of this encounter
--- OUTSIDE RECORDS SUMMARY | 2022-07-31 09:02 | XMS_ITS | Encounter Summary ---
:1940 Author Organization [facility] [place] [address] Care Team Providers Name Role Phone Bobby Das MD Primary Care Provider Encounter Details Date Type Department Care Team Description 06/16/2019 Ancillary Procedure Radiology Library at Bobby Almaguer MD [facility] [place] [place] [address] [place] [phone] (Wo rk) Social History Tobacco Use Types Packs/Day Years Used Date Current Some Day Smoker 1 50 Smokeless Tobacco: Never Used Sex Assigned at Date Recorded Not on file documented as of this encounter Plan of Treatment Upcoming Encounters Date Type Specialty Care Team Description 08/08/2022 Office Visit Gastroenterology Negra Collins MD [facility] DR GASTROENTEROLOGY DEPT [place], [place] [address] (Wo rk) 09/05/2022 Appointment Cardiology Trinity Reid MD [facility] CARDIOLOGY [place], [place] [address] (Wo rk) 09/05/2022 Office Visit Cardiology Trinity Reid MD [facility] CARDIOLOGY [place], [place] [address] (Wo rk) documented as of [...] Organization Address City/State/ZIP Code Phon e Number [place], [place] documented in this encounter Visit Diagnoses Not on filedocumented in this encounter Care Teams Client Services Assistant Relationship Specialty Start Date End Date Bobby Das MD PCP - General 10/02/[address] [place] [address] [place] [phone] documented as of this encounter
--- OUTSIDE RECORDS SUMMARY | 2022-07-31 09:02 | XMS_ITS | Encounter Summary ---
:1940 [place] [address] Care Team Providers Name Role Phone Bobby Das MD Primary Care Provider Encounter Details Date Type Department Care Team Description 08/25/2015 Telephone Dermatology at [facility] Gloria Ferrell MD [address] [facility] [place] [address] [facility] [phone] [place], [place] [address] (Wo rk) Social History Tobacco [...] [facility] DR GASTROENTEROLOGY DEPT [place], [place] [address] (Wo rk) 09/05/2022 Appointment Cardiology Trinity Reid MD [facility] CARDIOLOGY [place], [place] [address] (Wo rk) 09/05/2022 Office Visit Cardiology Trinity Reid MD [facility] CARDIOLOGY [place], [place] [address] (Wo rk) documented as of this encounter Visit Diagnoses Not on filedocumented in this encounter Care Teams Beta Tester Relationship Specialty Start Date End Date Bobby Das MD PCP - General 10/02/[address] [place] [address] [place] [phone] documented as of this encounter
--- OUTSIDE RECORDS SUMMARY | 2022-07-31 09:02 | XMS_ITS | Encounter Summary ---
:1940 Author Organization [facility] [place] [address] Care Team Providers Name Role Phone Bobby Das MD Primary Care Provider Reason for Visit Reason Comments Shortness of Breath Encounter Details Date Type Department Care Team Description 09/17/2011 Office Visit [facility]osp Torrey Giang SOB (shortness of [address] Mendoza MD breath) (Primary Dx) [facility] [phone] CARDIOLOGY DEPT. [place] [id number] Social History Tobacco Use Types Packs/Day Years [...] MD [facility] GASTROENTEROLOGY DEPT [place], [place] [address] (Wo rk) 09/05/2022 Appointment Cardiology Trinity Reid MD [facility] CARDIOLOGY [place], [place] [address] (Wo rk) 09/05/2022 Office Visit Cardiology Trinity Reid MD [facility] CARDIOLOGY [place], [place] [address] (Wo rk) documented as of [...] breath documented in this encounter Care Teams Poultry And Fish Butcher Relationship Specialty Start Date End Date Bobby Das MD PCP - General 10/02/[address] [place] [address] [place] [phone] documented as of this encounter
--- OUTSIDE RECORDS SUMMARY | 2022-07-31 09:02 | XMS_ITS | Encounter Summary ---
:1940 Author Organization [facility] [place] [address] Care Team Providers Name Role Phone Bobby Das MD Primary Care Provider Reason for Visit Reason Comments Suture / Staple Removal Encounter Details Date Type Department Care Team Description 08/31/2015 Clinical Support Dermatology at [place] Visit for suture Heat Nicol Estrella MD removal [address] [facility] [address] [facility] [phone] RD-DERMATOLOGY [place] [id number] Social History Tobacco Use Types Packs/Day Years Used Date Current Some Day Smoker 1 50 Smokeless Tobacco: Never Used Sex Assigned at Date Recorded Not on file documented as of this encounter Progress Notes Jeni Franco LPN - 08/31/2015 2:47 PM EDT HPI: Patient is a 74 y.o. male with history of basal cell carcinoma, right rastafari, s/p Mohs repairedby transposition flap repair who is presenting for suture removal. Denies complications. Exam: General: No acute distress Skin: Limited examination of right rastafari shows a well-healed flap. There is no erythema, dehiscence, ecchymosis, or drainage. Assessment and Plan 1. Basal cell carcinoma, right rastafari, s/p Mohs repaired by transposition flap repair [...] Collins MD [facility] GASTROENTEROLOGY DEPT [place], [place] [address] (Wo rk) 09/05/2022 Appointment Cardiology Trinity Reid MD [facility] CARDIOLOGY [place], [place] [address] (Wo rk) 09/05/2022 Office Visit Cardiology Trinity Reid MD [facility] CARDIOLOGY [place], [place] [address] (Wo rk) documented as of this encounter Visit Diagnoses Diagnosis Visit for suture removal Encounter for removal of sutures documented in this encounter Care Teams Deburrer Strip Relationship Specialty Start Date End Date Bobby Das MD PCP - General 10/02/[address] [place] [address] [place] [phone] documented as of this encounter
--- OUTSIDE RECORDS SUMMARY | 2022-07-31 09:02 | XMS_ITS | Encounter Summary ---
:1940 Author Organization [facility] [place] [address] Care Team Providers Name Role Phone Bobby Das MD Primary Care Provider Encounter Details Date Type Department Care Team Description 09/18/2018 Telephone Dermatology at [facility] Yolanda Fraser RN [address] [place] [address] Social History Tobacco Use Types Packs/Day [...] 1940 Today's Date: 09/18/2018 REFERRING PROVIDER: Bobby Rielly MD CC: Mohs micrographic surgery for treatment [...] Who lives with patient (i.e. spouse, children, alf/jail)? Spouse Relevant travel history or future plans: [...] Collins MD [facility] GASTROENTEROLOGY DEPT [place], [place] [address] (Wo rk) 09/05/2022 Appointment Cardiology Trinity Reid MD [facility] CARDIOLOGY [place], [place] [address] (Wo rk) 09/05/2022 Office Visit Cardiology Trinity Reid MD [facility] CARDIOLOGY [place], [place] [address] (Wo rk) documented as of this encounter Visit Diagnoses Not on filedocumented in this encounter Care Teams Prepress Proofer Relationship Specialty Start Date End Date Bobby Das MD PCP - General 10/02/[address] [place] [address] [place] [phone] documented as of this encounter
--- OUTSIDE RECORDS SUMMARY | 2022-07-31 09:02 | XMS_ITS | Encounter Summary ---
:1940 Author Organization [facility] Address [facility] [facility] [place] [address] Care Team Providers Name Role Phone Bobby Das MD Primary Care Provider Reason for Visit Reason Comments Shortness of Breath Encounter Details Date Type Department Care Team Description 12/24/2011 Office Visit [facility] Hosp Torrey Giang SOB (shortness of [address] Mendoza MD breath) (Primary Dx) [facility] [phone] CARDIOLOGY DEPT. [place], [place] [address] Social History Tobacco Use Types Packs/Day Years Used Date Current Every Day Smoker 1 50 Smokeless Tobacco: Never Used Sex Assigned at Date Recorded Not on file documented as of this encounter Progress Notes Wai Schilling - 01/02/2012 11:09 AM EST Torrey Giang - 12/24/2011 11:58 AM EST Subjective: Patient ID: Koko Zamroa is a 71 y.o. male. HPI ROS Objective: Physical Exam Assessment and Plan: No problem-specific visit notes found for this encounter. Scanned note documented in this encounter Plan of Treatment Upcoming Encounters Date Type Specialty Care Team Description 08/08/2022 Office Visit Gastroenterology Negra Collins MD [facility] GASTROENTEROLOGY DEPT [place], [place] [address] (Wo rk) 09/05/2022 Appointment Cardiology Trinity Reid MD [facility] CARDIOLOGY [place], [place] [address] (Wo rk) 09/05/2022 Office Visit Cardiology Trinity Reid MD [facility] CARDIOLOGY [place], [place] [address] (Wo rk) documented as of this encounter Visit Diagnoses Diagnosis SOB (shortness of breath) - Primary Shortness of breath documented in this encounter Care Teams Hop Strainer Relationship Specialty Start Date End Date Bobby Das MD PCP - General 10/02/[address] [place] [address] [place] [phone] documented as of this encounter
--- OUTSIDE RECORDS SUMMARY | 2022-07-31 09:08 | XMS_ITS | Encounter Summary ---
:1940 Author Organization [facility] Address [address] [place] [address] Care Team Providers Name Role Phone Bobby Das MD Primary Care Provider Reason for Visit Reason Onset Date Comments Prostate Cancer 06/03/2018 Encounter Details Date Type Department Care Team Description 06/03/2018 Telephone [facility] Aries Gutierrez Cancer Radiation Oncology - III, [address] [address] [address], [place] [address] (Wo rk) Social History Tobacco Use Types Packs/Day Years Used Date Current Every Day Smoker Smokeless Tobacco: Never Used Sex Assigned at Date Recorded Not on file documented as of this encounter Miscellaneous Notes Telephone Encounter - Delores Gutierrez III, MD - 06/03/2018 6736 EDT RADIATION ONCOLOGY I spoke with Mr. Zamora by phone today. He tells me he is unable to make it to [place] for follow-up visits with me as he [...] office if he will be in the [place] area as I would be happyto move my schedule as needed to see him for follow-up. I did strongly encourage him to continue follow-up with Dr. José and asked him to call them to arrange an appointment. He canceled his next scheduled follow-up appointment with me. Sj Gutierrez MD Radiation Oncology [phone] (office) [phone] (pager) This note has been prepared with voice recognition software. Please excuse deicer kit assembler errors. documented in this encounter Plan of Treatment Not on filedocumented as of this encounter Visit Diagnoses Not on filedocumented in this encounter Care Teams Postal Supervisor Relationship Specialty Start Date End Date Bobby Das MD PCP - General 07/06/[address] [place] [address],[address] [place] [address] documented as of this encounter
--- OUTSIDE RECORDS SUMMARY | 2022-07-31 09:08 | XMS_ITS | Clinical Summary ---
:1940 Author Organization [facility] Address [address] [place] [address] Care Team Providers Name Role Phone Bobby [...] Problem Noted Date Malignant neoplasm of prostate ([facility] 11/19/2017 Cancer Staging: Clinical stage from 11/19: Stage IIB (cT2a, cN0, cM0, PSA: 12.8, Grade Group: 2) - Signed by Delores Gutierrez III, MD on 11/19/2017 Medical History Medical History Date Comments Cancer ([facility]) (HCC) Hyperlipidemia Family History Medical History Relation [...] T ype Group Dates MEDICARE MEDICARE A/B [id number] 2007-Pre [address] edicare GL sent [id number] [place] [address] [facility] [id number] 2021-Pre [address] Commercial GL [facility] [employer]ATIONAL sent [place], [place] [id number] COMPANY Koko Zamora Personal/Family Self 1940 [address] (Home) [place] [address] Koko Zamora Personal/Family Self 1940 [address] ([place] [address] Care Teams Veterinary Radiologist Relationship Specialty Start Date End Date Bobby Das MD PCP - General 07/06/[address] [place] [address],[address] [place] [phone]
--- OUTSIDE RECORDS SUMMARY | 2022-07-31 09:08 | XMS_ITS | Encounter Summary ---
:1940 Author Organization [facility] Address [address] [place] [address] Care Team Providers Name Role Phone Bobby Das MD Primary Care Provider Encounter Details Date Type Department Care Team Description 08/28/2020 Lab Requisition [facility] Outr Resulting Lab, Pathology & Laboratory Provider [facility] [address] [place], [place] [id number] Social History Tobacco Use Types Packs/Day Years [...] (08/28/2020 9:58 EDT) COVID-19 rt-PCR NEGATIVE Negative [facility] Result Comment: LABORATORY 2019-novel Coronavirus [...] Organization Address City/State/ZIP Code Phon e Number [employer] [facility] [place] [place] COVID-19 TESTING (08/28/2020 9:58 EDT) Pathologist [facility] COVID-19 rt-PCR NEGATIVE Negative [facility] Result Comment: LABORATORY 2019-novel Coronavirus (2019 -nCoV) [...] Emergency Use Authorization. Performing Lab [facility] LABORATORY SERVICES Specimen Swab Performing Organization Address City/State/ZIP Code Phon e Number [facility] [address] [place] [address] SERVICES [facility] [place], [place] documented in this encounter Visit Diagnoses Not on filedocumented in this encounter Care Teams Phlebotomy Tech Relationship Specialty Start Date End Date Bobby Das MD PCP - General 07/06/[address] [place] [address] ,[address] [place] [address] documented as of this encounter
--- OUTSIDE RECORDS SUMMARY | 2022-07-31 09:08 | XMS_ITS | Encounter Summary ---
:1940 Author Organization [facility] Address [address] [place] [address] Care Team Providers Name Role Phone Bobby Das MD Primary Care Provider Encounter Details Date Type Department Care Team Description 07/16/2019 Hospital Encounter [facility]ne Gutierrez [facility] III, MD [id number] [place] [address] [facility] [address] [place] [address] (Wo rk) Social History Tobacco [...] filedocumented in this encounter Care Teams Superintendent Logging Relationship Specialty Start Date End Date Bobby Das MD PCP - General 07/06/[address] [place] [address] ,[address] [place] [phone] documented as of this encounter
--- OUTSIDE RECORDS SUMMARY | 2022-07-31 09:08 | XMS_ITS | Encounter Summary ---
:1940 Author Organization [facility] Address [address] [place] [address] Care Team Providers Name Role Phone Bobby Das MD Primary Care Provider Encounter Details Date Type Department Care Team Description 07/16/2019 Phlebotomy [facility] Supervisor Sewer Maintenance, Eboni barbosa neoplasm - [facility] Outpatient of prostate 111 [facility] ([facility]) (Primary [place], [place] Dx) [address] Social History Tobacco Use [...] DIAGNOSTIC of prostate procedure are i n ([facility]) the results section. documented in this encounter Results PSA TOTAL, DIAGNOSTIC (07/16/2019 9:30 EDT) PSA 0.1 0 - 6.5 ng/ml [facility] Comment: LABORATORY SERVICES Serum PSA concentration should not be interpreted as absolute evidence for the presence or absence of malignant disease. Assayed utilizing Siemens ([place]) chemiluminescent technology. ??Values obtained by using different assay methods cannot be used interchangeably. Specimen Blood specimen (specimen) - Blood Performing Organization Address City/State/ZIP Code Phon e Number [facility] [address] [place] [address] SERVICES documented in this encounter Visit Diagnoses Diagnosis Malignant neoplasm of prostate ([facility]) (HCC) - Primary Malignant neoplasm of prostate documented in this encounter Orders Lab Orders Without Results Count Last Ordered Date st Ordered Date PSA TOTAL, DIAGNOSTIC 1 07/16/2019 documented in this encounter Care Teams Information Services Assistant Relationship Specialty Start Date End Date Bobby Das MD PCP - General 07/06/[address] [place] [address],[address] [place] [address] documented as of this encounter
--- OUTSIDE RECORDS SUMMARY | 2022-07-31 09:08 | XMS_ITS | Encounter Summary ---
:1940 Author Organization [facility] Address [address] [place] [address] Care Team Providers Name Role Phone Bobby Das MD Primary Care Provider Encounter Details Date Type Department Care Team Description 07/11/2019 Hospital Encounter [facility] Aries Gutierrez Radiation Oncology - III, [facility] 111 [facility] [address] [place] [address] [address], [place] [phone] (Wo rk) Social History Tobacco Use Types [...] Code Departure Means Destination Home or Self [facility] documented in this encounter Plan of Treatment Not on filedocumented as of this encounter Visit Diagnoses Not on filedocumented in this encounter Care Teams Graphic Art Designer Relationship Specialty Start Date End Date Bobby Das MD PCP - General 07/06/[address] [place] [address] ,[address] [place] [phone] documented as of this encounter
--- OUTSIDE RECORDS SUMMARY | 2022-07-31 09:08 | XMS_ITS | Encounter Summary ---
:1940 Author Organization [facility] Address [address] [place] [address] Care Team Providers Name Role Phone Bobby Das MD Primary Care Provider Reason for Visit Reason Comments Prostate Cancer Follow up Encounter Details Date Type Department Care Team Description 07/16/[address] [facility] Cancer Center Aries Gutierrez neoplasm of Radiation Oncology - Felix EAST MD prostate ([facility]) Main [address] (Primary Dx) [address] [place] [address] [place] [address], [place] [phone] [facility] [address] [place] [address] (Wo rk) Social History Tobacco [...] DATE OF SERVICE: 07/16/2019 DIAGNOSIS AND STAGE: [id number], PSA 12.8 Winifred score 3+4 = 7 [...] this point. He is being evaluated at [facility] next week for possible [...] prepared with voice recognition software. Please excuse meat and seafood manager errors. documented in this encounter Plan [...] ORAL) added in this encounter Care Teams Digital Forensics Investigator Relationship Specialty Start Date End Date Bobby Das MD PCP - General 07/06/[address] [place] [address],[address] [place] [address] documented as of this encounter
--- OUTSIDE RECORDS SUMMARY | 2022-07-31 09:08 | XMS_ITS | Encounter Summary ---
:1940 Author Organization [facility] Address [address] [place] [address] Care Team Providers Name Role Phone Bobby Das MD Primary Care Provider Encounter Details Date Type Department Care Team Description 06/17/2019 Results Only Imaging [facility]- Unknown, [facility] ProviderMD [phone] Social History Tobacco Use Types Packs/Day Years [...] filedocumented in this encounter Care Teams Commercial Roofing Estimator Relationship Specialty Start Date End Date Bobby Das MD PCP - General 07/06/[address] [place] [address] ,[address] [place] [address] documented as of this encounter
--- OUTSIDE RECORDS SUMMARY | 2022-07-31 09:08 | XMS_ITS | Encounter Summary ---
:1940 Author Organization [facility] Address [address] [place] [address] Care Team Providers Name Role Phone Abby Das MD Primary Care Provider Encounter Details Date Type Department Care Team Description 04/22/2018 Results Only [facility]- PRISM Abby Das MD [phone] [place] [address],[address] [place], [place] [phone] (Wo rk) Social History Tobacco Use Types Packs/Day Years Used Date Current Every Day Smoker Smokeless Tobacco: Never Used Sex Assigned at Date Recorded Not on file documented as of this encounter Plan of Treatment Not on filedocumented as of this encounter Procedures Procedure Name Priority Date/Time Associated Diagnosis Comme [facility] SURGICAL PATHOLOGY Routine 04/22/2018 8:40 EDT Re sults for this procedure are i n the results section. documented in this encounter Results SURGICAL PATHOLOGY (04/22/2018 8:40 EDT) Pathology Report: SURGICAL PATHOLOGY REPORT [facility] Reports generated via electronic interface contain abram ginal data; LABORATORY however they are lacking the format of the original re port. SERVICES Caution should be taken when reading/interpreting unfo rmatted reports. Name: ? ETTA BAH ? Accession #: ? [id number] ? : ? 1940 (Age: 77) ??M [...] Organization Address City/State/ZIP Code Phon e Number [facility] [address] [place] [address] SERVICES documented in this encounter Visit Diagnoses Not on filedocumented in this encounter Care Teams Faculty Criminal Justice Relationship Specialty Start Date End Date bAby aDs MD PCP - General 07/06/[address] [place] [address] ,[address] [place] [phone] documented as of this encounter
--- OUTSIDE RECORDS SUMMARY | 2022-07-31 09:08 | XMS_ITS | Encounter Summary ---
:1940 Author Organization Address [address] [place] [address] Care Team Providers Name Role Phone Bobby Das MD Primary Care Provider Reason for Referral Laboratory Services (Routine) - Closed Specialty Diagnoses / Procedures Referred By Contact Refer red To Contact Diagnoses Malignant neoplasm of prostate ([facility]) ([facility]) Aries Gutierrez III, Procedures PSA TOTAL, DIAGNOSTIC MD [address] [place] [phone] Referral ID Status Reason Start Date Expiration Date Visits Requ ested Visits Authorized [id number] Closed 07/11/2019 1 1 Encounter Details Date Type Department Care Team Description 01/08/2019 Documentation Visit [facility] Aries Gutierrez Malignant neoplasm Radiation Oncology Felix EAST MD of prostate - [address] ([facility]) (Primary [address] [facility] Dx) [facility], [address] [place] [address] [phone] Social History Tobacco Use Types [...] Diagnosis Malignant neoplasm of prostate ([facility]) (HCC) - Primary Malignant neoplasm of prostate documented in this encounter Care Teams Feeder Loader Relationship Specialty Start Date End Date Bobby Das MD PCP - General 07/06/[address] [place] [address],[address] [place] [phone] documented as of this encounter
--- OUTSIDE RECORDS SUMMARY | 2022-07-31 09:08 | XMS_ITS | Encounter Summary ---
:1940 Author Organization [facility] Address [address] [place] [address] Care Team Providers Name Role Phone Bobby Das MD Primary Care Provider Encounter Details Date Type Department Care Team Description 04/23/2018 Hospital Encounter [facility]- Devi Unknown, Provider, [facility] [address] [facility] [phone] [place] [address] (Work) [phone] Social History Tobacco Use Types Packs/Day Years [...] Code Departure Means Destination Home or Self Alf documented in this encounter Plan of Treatment Not on filedocumented as of this encounter Visit Diagnoses Not on filedocumented in this encounter Care Teams Financial Internship Relationship Specialty Start Date End Date Bobby Das MD PCP - General 07/06/[address] [place] [address] ,[address] [place] [phone] documented as of this encounter
--- OUTSIDE RECORDS SUMMARY | 2022-07-31 09:08 | XMS_ITS | Encounter Summary ---
:1940 Author Organization [facility] Address [address] [place] [address] Care Team Providers Name Role Phone Bobby Das MD Primary Care Provider Reason for Visit Reason Onset Date Comments Appointment Related 03/19/2018 Encounter Details Date Type Department Care Team Description 03/19/2018 Telephone [facility] Dominique Mirza, [place]lo[place] ointment Related Urology - James campo RN [address] [place] [address] Social History Tobacco Use Types [...] there. ill plan to see him at [facility]. Tc to pt to advise he [...] the pt be seen at [facility] as originally suggested in 's 01/05 progress note. Will call patient to let him know if he needs to f/u with and if so, can he be seen at [facility]. documented in this encounter Plan of Treatment Not on filedocumented as of this encounter Visit Diagnoses Not on filedocumented in this encounter Care Teams Cable Tool Driller Relationship Specialty Start Date End Date Bobby Das MD PCP - General 07/06/[address] [place] [address],[address] [place] [address] documented as of this encounter
--- OUTSIDE RECORDS SUMMARY | 2022-07-31 09:08 | XMS_ITS | Encounter Summary ---
:1940 Author Organization [facility] Address [address] [place] [address] Care Team Providers Name Role Phone Bobby Das MD Primary Care Provider Encounter Details Date Type Department Care Team Description 04/12/2021 Lab Requisition [facility] Outr Resulting Lab, Pathology & Laboratory Provider [facility] [address] [place], [place] [phone] Social History Tobacco Use Types Packs/Day Years [...] nature Testosterone 269 229 - 902 ng/dL [facility] Specimen Blood - Venous blood (substance) Narrative [facility] - 04/12/2021 22:19 EDT The results of this assay can be falsley elevated due to the consumption of Biotin. Performing Organization Address City/State/ZIP Code Phon e Number [facility] [address] [place] [address] SERVICES documented in this encounter Visit Diagnoses Not on filedocumented in this encounter Care Teams Cook Sauce Relationship Specialty Start Date End Date Bobby Das MD PCP - General 07/06/[address] [place] [address] ,[address] [place] [phone] documented as of this encounter
--- OUTSIDE RECORDS SUMMARY | 2022-07-31 09:08 | XMS_ITS | Encounter Summary ---
:1940 Author Organization [facility] Address [address] [place] [address] Care Team Providers Name Role Phone Bobby Das MD Primary Care Provider Encounter Details Date Type Department Care Team Description 10/03/2021 Lab Requisition [facility] Bobby Das Enc ounter for other Pathology & MD general examination Laboratory Medicine [address] [place] [address],[address] [facility] 1 [place], [place] [phone] [place] [phone] Social History Tobacco Use Types Packs/Day Years [...] 15:36 EST) Note to Patient The following [facility] pathology results have CENTER been [...] material is identified. Attestation By the signature [facility] Electronica lly below, the attending CENTER signed by Deejay, physician certifies LABORATORY Lis Platt MD on that they have 1) SERVICES 10/08/2021 at 1640 personally conducted a gross and/or microscopic examination of the described specimen(s), and/or personally interpreted the results of laboratory testing of the described specimen(s), and 2) personally rendered or confirmed the above diagnosis. Microscopic Sections consist of an [facility] Description excision of skin to [...] deeper sections. Clinical History Firm lesion not [facility] healing; foreign body CENTER granuloma LABORATORY SERVICES Gross Description A. [facility] Received in formalin christina d [...] SERVICES Toni Giordano 10/05/2021 8:15 Performing Lab [facility] Scanned Images [facility] Specimen Tissue - Skin (tissue) specimen (specime n) Performing Organization Address City/State/ZIP Code Phon e Number [facility] [address] [place] [address] SERVICES documented in this encounter Visit Diagnoses Diagnosis Encounter for other general examination documented in this encounter Care Teams Gm Video Relationship Specialty Start Date End Date Bobby Das MD PCP - General 07/06/[address] [place] [address] ,[address] [place] [address] documented as of this encounter
--- OUTSIDE RECORDS SUMMARY | 2022-07-31 09:08 | XMS_ITS | Encounter Summary ---
:1940 Author Organization [facility] Address [address] [place] [address] Care Team Providers Name Role Phone Bobby Das MD Primary Care Provider Reason for Visit Reason Comments Other Encounter Details Date Type Department Care Team Description 03/04/2019 Refill [facility] Radiation Adelfo Gutierrez ld Felix III, Other Oncology - Main [facility] [address] [place] [phone] [place] [address] [facility] [address] [place], [place] [phone] (Wo rk) Social History [...] documented as of this encounter Care Teams Business Applications Manager Relationship Specialty Start Date End Date Bobby Das MD PCP - General 07/06/[address] [place] [address],[address] [place] [phone] documented as of this encounter
--- OUTSIDE RECORDS SUMMARY | 2022-07-31 09:08 | XMS_ITS | Encounter Summary ---
:1940 Author Organization [facility] Address [address] [place] [address] Care Team Providers Name Role Phone Bobby Das MD Primary Care Provider Reason for Visit Reason Onset Date Comments Follow-up 03/06/2018 Encounter Details Date Type Department Care Team Description 03/06/2018 Telephone [facility] Theron Rojas RN Follow-up Radiation Oncology - Main [address] [place] [phone] [place] [address] Social History Tobacco Use Types Packs/Day Years [...] filedocumented in this encounter Care Teams Outboard Motorboat Rigger Relationship Specialty Start Date End Date Bobby Das MD PCP - General 07/06/[address] [place] [address],[address] [place] [phone] documented as of this encounter
--- OUTSIDE RECORDS SUMMARY | 2022-07-31 09:09 | XMS_ITS | Encounter Summary ---
:1940 Author Organization [facility] Address [address] [place] [address] Care Team Providers Name Role Phone Bobby Das MD Primary Care Provider Reason for Visit Reason Comments Cancer Encounter Details Date Type Department Care Team Description 02/24/2018 Radiation Therapy [facility] Isela Law Ma lignant neoplasm of prostate (HCC-CMS) (Primary Dx); Visit Radiation Oncology - DION roldan deprivation therapy Main [place] [address] [place] [address] Social History Tobacco Use Types Packs/Day [...] Diagnoses Diagnosis Malignant neoplasm of prostate ([facility]) (HCC) - Primary Malignant neoplasm of prostate Androgen deprivation therapy Encounter for therapeutic drug monitorin g documented in this encounter Care Teams Sfdc Developer Relationship Specialty Start Date End Date Bobby Das MD PCP - General 07/06/[address] [place] [address] ,[address] [place] [address] documented as of this encounter
--- OUTSIDE RECORDS SUMMARY | 2022-07-31 09:09 | XMS_ITS | Encounter Summary ---
:1940 Author Organization [facility] Address [address] [place] [address] Care Team Providers Name Role Phone Bobby Das MD Primary Care Provider Reason for Visit Reason Comments Cancer Encounter Details Date Type Department Care Team Description 02/06/2018 Radiation Therapy [facility] Lynn Vargas RN Malignant neoplasm Visit Radiation Oncology 111 [facility] ([facility]) ([facility]) [address] [place] [address] (Primary Dx) [place] [phone] Social History Tobacco Use Types Packs/Day Years [...] encounter diagnosis was Malignant neoplasm of prostate ([facility]). Assessment: Assessment Completed By: Lynn Vargas RN [...] Visit Diagnoses Diagnosis Malignant neoplasm of prostate ([facility]) (HCC) - Primary Malignant neoplasm of prostate documented in this encounter Care Teams Precision Millwright Relationship Specialty Start Date End Date Bobby Das MD PCP - General 07/06/[address] [place] [address],[address] [place] [address] documented as of this encounter
--- OUTSIDE RECORDS SUMMARY | 2022-07-31 09:09 | XMS_ITS | Encounter Summary ---
:1940 Author Organization [facility] Address [address] [place] [address] Care Team Providers Name Role Phone Bobby Das MD Primary Care Provider Encounter Details Date Type Department Care Team Description 01/08/2018 Hospital Encounter [facility] Aries Gutierrez Radiation Oncology - III, [facility] [address] [address] [address], [place] [phone] (Wo rk) Social History Tobacco Use Types [...] on filedocumented in this encounter Care Teams Farm Machinery Erector Relationship Specialty Start Date End Date Bobby Das MD PCP - General 07/06/[address] [place] [address],[address] [place] [address] documented as of this encounter
--- OUTSIDE RECORDS SUMMARY | 2022-07-31 09:09 | XMS_ITS | Encounter Summary ---
:[address] [facility] Address [address] [place] [address] Care Team Providers Name Role Phone Bobby Das MD Primary Care Provider Reason for Visit Reason Comments Follow-up Injection Encounter Details Date Type Department Care Team Description 01/05/2018 Office Visit [facility] Erlin José MD Malignant neoplasm of Urology - Main [address] [place] [address] ([facility] ([facility]) (Primary 111 [facility], [facility]) [place] [address] [address], [place] [address] (Wo rk) Social History Tobacco [...] Progress Notes Chino José MD - 01/05/2018 0903 EST Chief Complaint: Chief Complaint Patient presents with ??? Follow-up Injection HPI: Koko is a 77 y.o. male with prostate cancer. 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 He previously had [...] Dr. Gutierrez this week See me at [facility] after radiation therapy is complete [...] mg documented in this encounter Care Teams Automation Tender Relationship Specialty Start Date End Date Bobby Das MD PCP - General 07/06/[address] [place] [address],[address] [place] [phone] documented as of this encounter
--- OUTSIDE RECORDS SUMMARY | 2022-07-31 09:09 | XMS_ITS | Encounter Summary ---
:1940 Author Organization [facility] Address [address] [place] [address] Care Team Providers Name Role Phone Bobby Das MD Primary Care Provider Encounter Details Date Type Department Care Team Description 11/20/2017 Results Only [facility]- Unknown, PRISM ProviderMD [phone] Social History Tobacco Use Types Packs/Day Years [...] on filedocumented in this encounter Care Teams Skate Shop Attendant Relationship Specialty Start Date End Date Bobby Das MD PCP - General 07/06/[address] [place] [address],[address] [place] [address] documented as of this encounter
--- OUTSIDE RECORDS SUMMARY | 2022-07-31 09:09 | XMS_ITS | Encounter Summary ---
:1940 Author Organization [facility] Address [address] [place] [address] Care Team Providers Name Role Phone Bobby Das MD Primary Care Provider Encounter Details Date Type Department Care Team Description 10/29/2017 Results Only [facility] Erlin José MD Urology - [address] [address] [place], [place] [phone] (Wo rk) Social History Tobacco Use Types [...] (10/29/2017 8:21 EST) Pathology SURGICAL PATHOLOGY REPORT [facility] MED[facility] Report: Reports generated via electronic interface conta in original data; CENTER LABORATORY however they are lacking the format of the original re port. SERVICES Caution should be taken when reading/interpreting unfo rmatted reports. Name: ? ETTA BAH ? Accession #: ? [id number] ? : ? 1940 (Age: 77) ??M [...] to 6: Prognostic Grad e Group I [place] score 3+4=7: Prognostic Grade Group II [place] score 4+3=7: Prognostic Grade Group III Winifred score 8: Prognostic Grade Group IV Winifred score 9-10: Prognostic Grade Group V References for Prognostic Grade Groups: J Clin Hercules 2012;30:7454-0838 Joey CASTAÑEDA. The Winifred Grading System (A Comple te Guide for Pathologists and Clinicians), LWW, 2013 Serg PM, Shell PW, Edward AW, Joey JI. Progno stic Winifred Grade Grouping: Data based on the modified [place] scoring s yste. BJU Int 2013;111:753-760 A. [...] leason pattern: ? Grade 3 ?- ??Secondary [place] pattern: ? Grade 3 ?- ??Total Gle [...] of 2 cores. ? - Global tumor [place] score: ?3 + 4 = 7 (30% [...] Organization Address City/State/ZIP Code Phon e Number [facility] [address] [place] [address] SERVICES documented in this encounter Visit Diagnoses Not on filedocumented in this encounter Care Teams Engineering Group Manager Relationship Specialty Start Date End Date Bobby Das MD PCP - General 07/06/[address] [place] [address] ,[address] [place] [phone] documented as of this encounter
--- OUTSIDE RECORDS SUMMARY | 2022-07-31 09:09 | XMS_ITS | Encounter Summary ---
:1940 Author Organization [facility] Address [address] [place] [address] Care Team Providers Name Role Phone Bobby Das MD Primary Care Provider Encounter Details Date Type Department Care Team Description 01/08/2018 Procedure visit [facility] Aries Gutierrez Radiation Oncology - IIIMD [address] [address] [address], [place] [phone] (Wo rk) Social History Tobacco Use Types [...] prostate gland. DATE OF SERVICE: 01/08/2018 INDICATIONS: [id number], PSA 12.8 Winifred score 3+4 = 7 [...] documented as of this encounter Care Teams Stem Shaper Relationship Specialty Start Date End Date Bobby Das MD PCP - General 07/06/[address] [place] [address] ,[address] [place] [address] documented as of this encounter
--- OUTSIDE RECORDS SUMMARY | 2022-07-31 09:09 | XMS_ITS | Encounter Summary ---
:1940 Author Organization [facility] Address [address] [place] [address] Care Team Providers Name Role Phone Bobby Das MD Primary Care Provider Reason for Visit Reason Onset Date Comments Prostate Cancer 11/20/2017 Encounter Details Date Type Department Care Team Description 11/20/[address] [facility] Aries Gutierrez Radiation Oncology - [facility], [address] [address] [address], [place], [place] [address] (Wo rk) Social History Tobacco Use Types [...] on filedocumented in this encounter Care Teams Irrigation Worker Relationship Specialty Start Date End Date Bobby Das MD PCP - General 07/06/[address] [place] [address] ,[address] [place] [address] documented as of this encounter
--- OUTSIDE RECORDS SUMMARY | 2022-07-31 09:09 | XMS_ITS | Encounter Summary ---
:1940 Author Organization [facility] Address [address] [place] [address] Care Team Providers Name Role Phone Bobby Das MD Primary Care Provider Encounter Details Date Type Department Care Team Description 01/16/2018 Results Only [facility] Aries Gutierrez Imaging Radiation Oncology - III, [facility] 111 [facility] [address] [place] [address] [address], [place] [address] (Wo rk) Social History Tobacco Use Types [...] filedocumented in this encounter Care Teams Server Engineer Relationship Specialty Start Date End Date Bobby Das MD PCP - General 07/06/[address] [place] [address] ,[address] [place] [address] documented as of this encounter
--- OUTSIDE RECORDS SUMMARY | 2022-07-31 09:09 | XMS_ITS | Encounter Summary ---
:1940 Author Organization [facility] Address [address] [place] [address] Care Team Providers Name Role Phone Unknown, Provider Primary Care Provider Encounter Details Date Type Department Care Team Description 07/03/2015 Results Only [facility] Abby Das MD [phone] [place] [address],[address] [place], [place] [phone] (Wo rk) Social History Tobacco Use Types Packs/Day Years Used Date Never Assessed Sex Assigned at Date Recorded Not on file documented as of this encounter Plan of Treatment Not on filedocumented as of this encounter Procedures Procedure Name Priority Date/Time Associated Diagnosis Comme [facility] SURGICAL PATHOLOGY Routine 07/03/2015 8:54 EDT Re sults for this procedure are i n the results section. documented in this encounter Results SURGICAL PATHOLOGY (07/03/2015 8:54 EDT) Pathology Report: SURGICAL PATHOLOGY REPORT [facility] Reports generated via electronic interface contain abram ginal data; LABORATORY however they are lacking the format of the original re port. SERVICES Caution should be taken when reading/interpreting unfo rmatted reports. Name: ? ETTA BAH ? Accession #: ? [id number] ? : ? 1940 (Age: 74) ??M ? Collect Date: ? 07/03/2015 ? Location: ? [facility] ? Receive Date: ? 07/04/20 15 ? Provider: ABBY DAS MD Copy to: ? Final Pathologic Diagnosis: SKIN OF ALEVISM, RIGHT, EXCISION: - Basal cell carcinoma, infiltrative [...] the above diagnosi s. Specimen(s) Received: R yarsanism Clinical History: Basal cell carcinoma reexcision Gross [...] e Number [facility] [address] [place] [address] SERVICES documented in this encounter Visit Diagnoses Not on filedocumented in this encounter Care Teams Catholic Priest Relationship Specialty Start Date End Date Unknown, Provider, PCP - General 07/03/15 07/05/15 documented as of this encounter
--- OUTSIDE RECORDS SUMMARY | 2022-07-31 09:09 | XMS_ITS | Encounter Summary ---
:1940 Author Organization [facility] Address [address] [place] [address] Care Team Providers Name Role Phone Bobby Das MD Primary Care Provider Reason for Visit Reason Comments Cancer Encounter Details Date Type Department Care Team Description 02/16/2018 Radiation Therapy [facility] Isela Law Ma lignant neoplasm of Visit Radiation Oncology - RN prostleonid e ([facility]) Main [place] (Primary Dx) [address] [place] [address] Social History Tobacco Use Types Packs/Day [...] ([facility]). Assessment: Assessment Completed By: Isela Law [...] prostate documented in this encounter Care Teams Acid Tank Liner Relationship Specialty Start Date End Date Bobby Das MD PCP - General 07/06/[address] [place] [address],[address] [place] [address] documented as of this encounter
--- OUTSIDE RECORDS SUMMARY | 2022-07-31 09:09 | XMS_ITS | Encounter Summary ---
:1940 Author Organization [facility] Address [address] [place] [address] Care Team Providers Name Role Phone Bobby Das MD Primary Care Provider Reason for Visit Reason Comments Cancer Encounter Details Date Type Department Care Team Description 02/27/2018 Radiation Therapy [facility] Letty Gaitan RN Malignant neoplasm Visit Radiation Oncology [address] [place] [address] ([facility]) (Primary [address] [place], [place]x) [place] [id number] Social History Tobacco Use Types Packs/Day Years [...] encounter diagnosis was Malignant neoplasm of prostate ([facility]). Assessment: Assessment Completed By: Janae Gaitan [...] prostate documented in this encounter Care Teams Heel Seat Trimmer Relationship Specialty Start Date End Date Bobby Das MD PCP - General 07/06/[address] [place] [address] ,[address] [place] [address] documented as of this encounter
--- OUTSIDE RECORDS SUMMARY | 2022-07-31 09:09 | XMS_ITS | Encounter Summary ---
:1940 Author Organization [facility] Address [address] [place] [address] Care Team Providers Name Role Phone Bobby Das MD Primary Care Provider Reason for Visit Reason Onset Date Comments Cancer 02/16/2018 Encounter Details Date Type Department Care Team Description 02/16/2018 Orders Only [facility] Isela Law Maligna nt neoplasm of prostate (HCC-CMS) (Primary Dx); Radiation Oncology - RN Andvamshi n deprivation therapy [address] [address] Social History Tobacco Use Types Packs/Day Years [...] g documented in this encounter Care Teams Academic Affairs Director Relationship Specialty Start Date End Date Bobby Das MD PCP - General 07/06/[address] [place] [address] ,[address] [place] [address] documented as of this encounter
--- OUTSIDE RECORDS SUMMARY | 2022-07-31 09:09 | XMS_ITS | Encounter Summary ---
:1940 Author Organization [facility] Address [address] [place] [address] Care Team Providers Name Role Phone Bobby Das MD Primary Care Provider Reason for Visit Reason Onset Date Comments Follow-up 02/24/2018 Appointment Related 02/24/2018 scheduled appt w/ nu rsing for Lupron injection on 04/06 Encounter Details Date Type Department Care Team Description 02/24/2018 Telephone [facility] Ama Corea, Follow -up; Appointment Urology - James campo RN Related (scheduled appt [facility] w/ [place] [address] injection on 04/06) [phone] Social History Tobacco Use Types Packs/Day Years Used Date Current Every Day Smoker Smokeless Tobacco: Never Used Sex Assigned at Date Recorded Not on file documented as of this encounter Miscellaneous Notes Telephone Encounter - Mague Crisostomo - 02/25/2018 1044 EDT scheduled appt w/ nursing for Lupron injection on 04/06; pt prefers it at the [place] office Telephone Encounter - Ama Corea, RN [...] on filedocumented in this encounter Care Teams Delivery Specialist Relationship Specialty Start Date End Date Bobby Das MD PCP - General 07/06/[address] [place] [address],[address] [place] [address] documented as of this encounter
--- OUTSIDE RECORDS SUMMARY | 2022-07-31 09:09 | XMS_ITS | Encounter Summary ---
:1940 Author Organization Address [address] [place] [address] Care Team Providers Name Role Phone Bobby Das MD Primary Care Provider Reason for Visit Reason Comments Prostate Cancer Encounter Details Date Type Department Care Team Description 02/10/2018 Radiation Therapy [facility] Aries Gutierrez alignant neoplasm Visit Radiation Oncology Felix EAST MD of [facility] - [address] ([facility]) (Primary [address] [facility] Dx) [facility], [address] [place] [address] [address] [place] [address] Social History Tobacco Use Types [...] encounter diagnosis was Malignant neoplasm of prostate ([facility]). Assessment: Assessment Completed By: Felix Gutierrez MD (02/10/18 2852) Radiation Therapy: Cumulative RT Dose 2400 cGy [...] Changes: None Sj Gutierrez MD Radiation Oncology [phone] (office) [phone] (pager) documented in this encounter Plan of Treatment Not on filedocumented as of this encounter Visit Diagnoses Diagnosis Malignant neoplasm of prostate (HCC-CMS) (HCC) - Primary Malignant neoplasm of prostate documented in this encounter Care Teams Linux Devops Engineer Relationship Specialty Start Date End Date Bobby Das MD PCP - General 07/06/[address] [place] [address] ,[address] [place] [address] documented as of this encounter
--- OUTSIDE RECORDS SUMMARY | 2022-07-31 09:09 | XMS_ITS | Encounter Summary ---
:1940 Author Organization [facility] Address [address] [place] [address] Care Team Providers Name Role Phone Bobby Das MD Primary Care Provider Reason for Visit Reason Comments Prostate Cancer Encounter Details Date Type Department Care Team Description 11/19/2017 Office Visit [facility] Aries Gutierrez neoplasm of Radiation Oncology - Felix EAST MD prostate ([facility]) Main [address] ([facility]) (Primary [facility] Dx) [place], [place] [phone] [place] [address] [facility] [address] [place] [address] (Wo rk) Social History Tobacco [...] Dr. José. 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 His pathology was reviewed here at [facility] which was confirmatory.A bone scan is planned [...] Social History: He is and lives in [facility]. He and his own and operate [...] bone scan which will be done at [facility] tomorrow. Once that result is [...] prepared with voice recognition software. Please excuse toll repairer central office errors documented in this encounter Plan of [...] daily. added in this encounter Care Teams Consulting Services Manager Relationship Specialty Start Date End Date Bobby Das MD PCP - General 07/06/[address] [place] [address] ,[address] [place] [address] documented as of this encounter
--- OUTSIDE RECORDS SUMMARY | 2022-07-31 09:09 | XMS_ITS | Encounter Summary ---
:1940 Author Organization [facility] Address [address] [place] [address] Care Team Providers Name Role Phone Bobby Das MD Primary Care Provider Reason for Visit Reason Onset Date Comments Medication Management 11/21/2017 Encounter Details Date Type Department Care Team Description 11/21/2017 Orders Only [facility] Radiation De Law RN Oncology - [address] [phone] Social History Tobacco Use Types Packs/Day Years [...] on filedocumented in this encounter Care Teams Mortuary Beautician Relationship Specialty Start Date End Date Bobby aDs MD PCP - General 07/06/[address] [place] [address] ,[address] [place] [address] documented as of this encounter
--- OUTSIDE RECORDS SUMMARY | 2022-07-31 09:09 | XMS_ITS | Encounter Summary ---
:1940 Author Organization [facility] Address [address] [place] [address] Care Team Providers Name Role Phone Bobby Das MD Primary Care Provider Reason for Visit Reason Comments Follow-up Encounter Details Date Type Department Care Team Description 12/02/2017 Office Visit [facility] Erlin José MD Malignant neoplasm of Urology - [address] ([facility] ([facility]) (Primary [address] [facility] [place] [address] [address], [place] [address] (Wo rk) Social History Tobacco [...] Progress Notes Chino José MD - 12/02/2017 9055 EST Chief Complaint: Chief Complaint Patient presents with ??? Follow-up HPI: Koko is a 77 y.o. male with prostate cancer. I originally saw the patient and [facility] and diagnosed him with Goltry 3+4 prostate cancer associated with a PSA of 12.8. He underwent a bone scan for staging that came back negative for metastatic disease. He is seeing me today at [facility] for a Lupron injection. He started his [...] ( desire to have sex ). Some intermission coordinator hormonal therapy is associated with the loss [...] 12/02 documented in this encounter Care Teams Central Stores Attendant Relationship Specialty Start Date End Date Bobby Das MD PCP - General 07/06/[address] [place] [address],[address] [place] [address] documented as of this encounter
--- OUTSIDE RECORDS SUMMARY | 2022-07-31 09:09 | XMS_ITS | Encounter Summary ---
:1940 Author Organization [facility] Address [address] [place] [address] Care Team Providers Name Role Phone Unknown, Provider Primary Care Provider Encounter Details Date Type Department Care Team Description 07/03/2015 Hospital Encounter [facility]- Devi Unknown, Provider, [facility] [phone] [place] [address] (Work) [phone] Social History Tobacco Use Types Packs/Day Years Used Date Never Assessed Sex Assigned at Date Recorded Not on file documented as of this encounter Discharge Disposition Disposition Code Departure Means Destination Home or Self [facility] documented in this encounter Plan of Treatment Not on filedocumented as of this encounter Visit Diagnoses Not on filedocumented in this encounter Care Teams Director Database Relationship Specialty Start Date End Date Unknown, Provider, PCP - General 07/03/15 07/05/15 documented as of this encounter
--- OUTSIDE RECORDS SUMMARY | 2022-07-31 09:09 | XMS_ITS | Encounter Summary ---
:[address] [facility] Address [address] [place] [address] Care Team Providers Name Role Phone Bobby Das MD Primary Care Provider Encounter Details Date Type Department Care Team Description 10/29/2017 Hospital Encounter [facility]- Devi Unknown, Provider, [facility] [address] [facility] [phone] [place] [address] (Work) [phone] Social History Tobacco Use Types Packs/Day Years Used Date Never Assessed Sex Assigned at Date Recorded Not on file documented as of this encounter Discharge Disposition Disposition Code Departure Means Destination Home or Self Half-Way documented in this encounter Plan of Treatment Not on filedocumented as of this encounter Visit Diagnoses Not on filedocumented in this encounter Care Teams Relief Pharmacist Relationship Specialty Start Date End Date Bobby Das MD PCP - General 07/06/[address] [place] [address],[address] [place] [address] documented as of this encounter
--- OUTSIDE RECORDS SUMMARY | 2022-07-31 09:09 | XMS_ITS | Encounter Summary ---
:1940 Author Organization [facility] Address [address] [place] [address] Care Team Providers Name Role Phone Bobby Das MD Primary Care Provider Reason for Visit Reason Comments Cancer Encounter Details Date Type Department Care Team Description 01/08/2018 Radiation Therapy [place] Isela Law Ma lignant neoplasm of Visit Radiation Oncology - RN prostat e ([facility]) Main [place] ([facility]) (Primary [address] Dx) [place] [address] Social History Tobacco Use Types [...] and get free services/meds from afar. Referrals die try out worker: Yes (Shadi will meet with Santhosh Cosby MSW next week to review the DT and supportive services. ) Services: [place]e [place]: No Other: Subjective Note: General: Koko and his Ursula are here for the treatment teaching session post Fiducials being placed. Shadi and his run a [employer] in [place]. They are concerned that he might be [...] prostate documented in this encounter Care Teams Heater Tender Relationship Specialty Start Date End Date Bobby Das MD PCP - General 07/06/[address] [place] [address] ,[address] [place] [address] documented as of this encounter
--- OUTSIDE RECORDS SUMMARY | 2022-07-31 09:09 | XMS_ITS | Encounter Summary ---
:1940 Author Organization [facility] Address [address] [place] [address] Care Team Providers Name Role Phone Bobby Das MD Primary Care Provider Reason for Visit Reason Onset Date Comments Medication Management 02/16/2018 Encounter Details Date Type Department Care Team Description 02/16/2018 Orders Only [facility] Radiation De Law panel builder - [address] [phone] Social History Tobacco Use Types Packs/Day Years [...] filedocumented in this encounter Care Teams Senior Water Resources Engineer Relationship Specialty Start Date End Date Bobby Das MD PCP - General 07/06/[address] [place] [address],[address] [place] [address] documented as of this encounter
--- OUTSIDE RECORDS SUMMARY | 2022-07-31 09:09 | XMS_ITS | Encounter Summary ---
:1940 Author Organization [facility] Address [address] [place] [address] Care Team Providers Name Role Phone Bobby Das MD Primary Care Provider Encounter Details Date Type Department Care Team Description 02/08/[address] [facility] Aries Gutierrez Radiation Oncology - III, [facility] [address] [facility] [address] [place] [address] Pavilion, [place] [address] (Wo rk) Social History Tobacco Use Types [...] filedocumented in this encounter Care Teams Sports Physical Therapist Relationship Specialty Start Date End Date Bobby Das MD PCP - General 07/06/[address] [place] [address],[address] [place] [address] documented as of this encounter
--- OUTSIDE RECORDS SUMMARY | 2022-07-31 09:09 | XMS_ITS | Encounter Summary ---
:1940 Author Organization [facility] Address [address] [place] [address] Care Team Providers Name Role Phone Bobby Das MD Primary Care Provider Reason for Visit Reason Comments Prostate Cancer Encounter Details Date Type Department Care Team Description 02/03/2018 Radiation Therapy [facility] Aries Gutierrez alignant neoplasm Visit Radiation Oncology Felix EAST MD of [facility] - [address] ([facility] ([facility]) [address] [place] [address] (Primary Dx) [facility], [address] [place] [address] [address] [place] [address] Social History Tobacco Use Types Packs/Day Years Used Date Current Every Day Smoker Smokeless Tobacco: Never Used Sex Assigned at Date Recorded Not on file documented as of this encounter Progress Notes Delores Gutierrez III, MD - 02/03/2018 2893 EDT On Treatment Visit Assessment: Koko Zamora is currently receiving radiation therapy treatment and is being seen today for his weekly on treatment visit. The encounter diagnosis was Malignant neoplasm of prostate ([facility]). Assessment: Assessment Completed By: Felix Gutierrez MD (02/03/18 4416) Radiation Therapy: Cumulative RT Dose 600 cGy [...] Changes: None Sj Gutierrez MD Radiation Oncology [phone] (office) [phone] (pager) documented in this encounter Plan of [...] documented as of this encounter Care Teams Edge Stripper Relationship Specialty Start Date End Date Bobby Das MD PCP - General 07/06/[address] [place] [address],[address] [place] [address] documented as of this encounter
--- OUTSIDE RECORDS SUMMARY | 2022-07-31 09:09 | XMS_ITS | Encounter Summary ---
:1940 Author Organization [facility] Address [address] [place] [address] Care Team Providers Name Role Phone Bobby Das MD Primary Care Provider Reason for Visit Reason Onset Date Comments Diagnostic Imaging Report 11/25/2017 Encounter Details Date Type Department Care Team Description 11/25/2017 Telephone [facility] Lynn Vargas RN Diagnostic Imaging Radiation Oncology - [address] [place] [address] Report [place], [place] [id number] [place] [address] Social History Tobacco Use Types Packs/Day Years [...] on filedocumented in this encounter Care Teams Outreach And Education Social Worker Relationship Specialty Start Date End Date Bobby Das MD PCP - General 07/06/[address] [place] [address] ,[address] [place] [address] documented as of this encounter
--- OUTSIDE RECORDS SUMMARY | 2022-07-31 09:09 | XMS_ITS | Encounter Summary ---
:1940 Author Organization [facility] Address [address] [place] [address] Care Team Providers Name Role Phone Bobby Das MD Primary Care Provider Reason for Visit Reason Comments Prostate Cancer Encounter Details Date Type Department Care Team Description 02/23/2018 Radiation Therapy [facility] Aries Gutierrez alignant neoplasm Visit Radiation Oncology [facility] [address] ([facility]) (Primary [address] [place] [address] Dx) [facility], [address] [place] [address] [address] [place] [address] Social History Tobacco Use Types Packs/Day Years Used Date Current Every Day Smoker Smokeless Tobacco: Never Used Sex Assigned at Date Recorded Not on file documented as of this encounter Progress Notes Delores Gutierrez III, MD - 02/23/2018 1111 EDT On Treatment Visit Assessment: Kkoo Zamora is currently receiving radiation therapy treatment and is being seen today for his weekly on treatment visit. The encounter diagnosis was Malignant neoplasm of prostate ([facility]). Assessment: Assessment Completed By: Felix Gutierrez MD (02/23/18 3430) Radiation Therapy: Cumulative RT Dose 4800 cGy [...] Dr. King Sj Gutierrez MD Radiation Oncology [phone] (office) [phone] (pager) documented in this encounter Plan of Treatment Not on filedocumented as of this encounter Visit Diagnoses Diagnosis Malignant neoplasm of prostate (HCC-CMS) (HCC) - Primary Malignant neoplasm of prostate documented in this encounter Care Teams Cellar Packer Relationship Specialty Start Date End Date Bobby Das MD PCP - General 07/06/[address] [place] [address] ,[address] [place] [address] documented as of this encounter
--- OUTSIDE RECORDS SUMMARY | 2022-07-31 09:09 | XMS_ITS | Encounter Summary ---
:1940 Author Organization [facility] Address [address] [place] [address] Care Team Providers Name Role Phone Bobby Das MD Primary Care Provider Reason for Visit Reason Onset Date Comments Follow-up 01/12/2018 Encounter Details Date Type Department Care Team Description 01/12/2018 Telephone [facility] Radiation De Law RN Follow-up Oncology - [address] [address] Social History Tobacco Use Types Packs/Day Years Used Date Current Every Day Smoker Smokeless Tobacco: Never Used Sex Assigned at Date Recorded Not on file documented as of this encounter Miscellaneous Notes Telephone Encounter - Isela Law RN - 01/12/2018 9012 EST This is a planned post procedure [...] on filedocumented in this encounter Care Teams Receiving Distribution Station Operator Relationship Specialty Start Date End Date Bobby Das MD PCP - General 07/06/[address] [place] [address],[address] [place] [address] documented as of this encounter
--- OUTSIDE RECORDS SUMMARY | 2022-07-31 09:09 | XMS_ITS | Encounter Summary ---
:1940 Author Organization [facility] Address [address] [place] [address] Care Team Providers Name Role Phone Bobby Das MD Primary Care Provider Encounter Details Date Type Department Care Team Description 03/04/2018 Documentation Visit [facility] Aries Gutierrez Radiation Oncology - III, [address] [address] [address]ilion, [place] [phone] (Wo rk) Social History Tobacco Use Types Packs/Day Years Used Date Current Every Day Smoker Smokeless Tobacco: Never Used Sex Assigned at Date Recorded Not on file documented as of this encounter Miscellaneous Notes Treatment Summary - Delores Gutierrez III, MD - 03/04/2018 1339 EDT Images from the original note were not included. RADIATION ONCOLOGY TREATMENT SUMMARY SITE, HISTOPATHOLOGY AND STAGE: [id number], PSA 12.8 [place] score 3+4 = 7 adenocarcinoma prostate. He [...] Dr. José. Sj Gutierrez MD Radiation Oncology [phone] (office) [phone] (pager) This note has been prepared with voice recognition software. Please excuse mixing machine tender errors. documented in this encounter Plan of Treatment Not on filedocumented as of this encounter Visit Diagnoses Not on filedocumented in this encounter Care Teams Hoop Cutter Relationship Specialty Start Date End Date Bobby Das MD PCP - General 07/06/[address] [place] [address],[address] [place] [address] documented as of this encounter
--- OUTSIDE RECORDS SUMMARY | 2022-08-02 09:53 | XMS_ITS | Clinical Summary ---
:1940 Author Organization [facility] [place] [address] Care Team Providers Name Role Phone Bobby [...] 04/12/2021 Active (FLONASE) 50 mcg/actuation Each Nare Napier, Suspension route daily as needed. fluorouraciL (EFUDEX) [...] Problem Noted Date Coronary artery disease involving [place] coronary priscilla ry of [place] heart 06/13/2022 without angina pectoris Overview: 05/20/22 [...] therapy possibly including AV node ablation and GUIDE SETTER-D. Permanent atrial fibrillation 06/13/2022 Last Assessment & [...] consideration of AV no de ablation and GUIDE SETTER-D Limb ischemia 05/15/2022 History of basal cell carcinoma 05/31/2014 Basal cell carcinoma 03/29/2014 Verruca vulgaris 03/29/2014 AK (actinic keratosis) 03/29/2014 GIB (gastrointestinal bleeding) 06/28/2011 Overview: Secondary to 3-4 ASA/day, required admis lynette and blood transfusion MVP (mitral valve prolapse) s/p repair 06/28/2011 Overview: Surgery done at [facility] in 2 001 Hypertriglyceridemia 06/28/2011 Adhesive capsulitis of L shoulder 06/28/2011 Alcohol use 06/28/2011 Encounters Date Type Specialty Care Team Description 07/31/2022 Refill Vascular Surgery Nasrin Parra PA 07/01/2022 Telephone Dermatology Zainab Sommer CMA 06/25/2022 Surgery Gastroenterology Giovani Ponce UPPE R GI M, MD ENDOSCOPY 06/25/2022 Anesthesia Event Gastroenterology Bobby Alfaro MD Lehmann, Jordi S, CRNA 06/25/2022 Hospital Encounter Gastroenterology Giovani Ponce MD 06/25/2022 Orders Only Gastroenterology Isi Celaya Adenomat ous polyp of MD Samaria colon, unspecif ied part of colon 06/24/2022 Telephone Gastroenterology Alan August MD 06/23/2022 Telephone Gastroenterology Alan August MD 06/20/2022 Orders Only Cardiology Jeanette, HFrEF (heart fa ilure with reduced ejection fraction); Alan Hicks MD Coronary priscilla ry disease involving [place] coronary artery of [place] heart without angina pectoris 06/19/2022 Telephone Cardiology Kourtney Jimenez RN 06/17/2022 Orders Only Dermatology Loretta Cohen Basal cell c carlos Paez MD (BCC) of right forehead 06/13/2022 Office Visit Cardiology Jeanette, Coronary artery disease involving [place] coronary artery of [place] heart without angina pectoris; Alan Hicks MD HFrEF (heart failure with reduced ejection fraction); Permanent atria l fibrillation 06/13/2022 Office Visit Vascular Surgery Fito Summers isch alma Tan MD 06/13/2022 Tech Visit Vascular Surgery [facility], Edson Limb isc hemia L, [place] 06/10/2022 Office Visit Dermatology Loretta Cohen Neoplasm of MD Philippe unspecified beh avior of bone, soft t issue, and skin 05/31/2022 Anesthesia Event Gastroenterology Elmer Johnson MD Drost, Alexander J, INDUSTRIAL MAINTENANCE TECH 05/31/2022 Surgery Gastroenterology Giovani Ponce UPPE R GI M, MD ENDOSCOPY 05/31/2022 - Hospital Encounter Dominique Hinds GIB (g astrointestinal 06/02/2022 MD bleeding) (Primary Dx) Mahendra Victor MD Friedman, Harley P, MD Ratanamaneechat, Suphagaphan, MD 05/31/2022 Office Visit Vascular Surgery DavinaStephanie bellamyy Dizzy; B, FINANCIAL SERVICES REPRESENTATIVE Atrial fibrilla tion, unspecified type; SOB (shortness of breath) 05/28/2022 Telephone Vascular Surgery Dominique Bolivar, DION 05/24/2022 Telephone Cardiology Kourtney Jimenez RN 05/21/2022 Hospital Encounter Cardiology Paroxysma l atrial fibrillation 05/20/2022 Surgery Cardiology Abundio Servin MD CATHETERIZATION 05/15/2022 Anesthesia Event Surgery Cari Hernandez MD Patel, Shreena K, INDUSTRIAL MAINTENANCE TECH 05/15/2022 Surgery Surgery Roma Summerse EMBOLECTOMY Elton Tna MD THROMBECTOMY, FEMOROPOPLITEAL , AORTOILIAC PRISCILLA RY BY LEG INCISION (W RVU 19.48) 05/15/2022 - Hospital Encounter Melina Fito Atrial fibrillation, unspecified type; 05/21/2022 MD Dominick [...] Collins MD [facility] GASTROENTEROLOGY DEPT [place], [place] [address] (Wo rk) 09/05/2022 Appointment Cardiology Trinity Reid MD [facility] CARDIOLOGY [place], [place] [address] (Wo rk) 09/05/2022 Office Visit Cardiology Trinity Reid MD [facility] CARDIOLOGY [place], [place] [address] (Wo rk) Health Maintenance Due [...] Component Value Ref Test Analysis Performed At [facility] Range Method Time Signature UPPER GI [facility] PROVATION ENDOSCOPY Endoscopy Procedure Date: 06/25/2022 10:33 AM ? Patient Name: Koko Bah ? Date of : 1940 ? Age: 81 ? Order #: [id number] ? Instrument Name: [id number]- [id number] ? Procedure: ? Upper GI endoscopy Indications: ? Recent gastrointestinal bleeding Providers: ? Isi Munoz, ? Brissa Vee RN, Juvenal ? Confalone Referring MD: ?Christopher Stranatcarito Medicines: ? Propofol per Anesthesia Complications: ? [...] Endoscope w as ? introduced [facility] the [facility], and ? advanced to the second par t of ? duodenum The Colonoscope w as ? introduced through the [facility], and ? advanced to the proximal j [...] Ref Test Analysis Performed At [facility] Method Time Signature COLONOSCOPY [facility] [employer]ATION Endoscopy Procedure Date: 06/25/2022 10:33 AM ? Patient Name: Koko Bah ? Date of : 1940 ? Age: 81 ? Order #: [id number] ? Instrument Name: [id number]- [id number] ? Procedure: ? Colonoscopy Indications: ? Gastrointestinal [...] Procedure Code(s): ? --- Professional --- ? 02574, Colonoscopy, flexib le; with ? control of [...] of sigmoid ? colon CPT copyright 2020 [employer]. All rights reserved. The codes documented in this report are preliminary and upon professional fee coder review may be revised to meet [...] Component Value Ref Test Analysis Performed At [facility] gist Range Method Time Signature VB Text Department: Vascular Surgery Lab VASCUBASE Report Patient: [id number] (KOKO BAH) CPT: 31141 Referring Physician: FITO SUMMERS ?? Phone: Indications: s/p L BODY PRESSER endart. Diabetes mellitus: no Findings: Right ?Pressure [...] Summers MD VASCULAR ORDERABLES Performing Organization Address City/[facility] [address]/ZIP Code Phon e Number VASCUBASE Specimen to Pathology (06/10/2022 1:20 PM EDT) Specimen Anatomical Collection Method Collection Time Receive d Time (Source) Location / / Volume Laterality AP Specimen 06/10/2022 1:20 PM 1:20 EDT PM EDT Narrative [facility] - 06/10/2022 1:20 PM EDT Specimen requisition ordered. ??Separate Pathology report to follow Loretta Cohen MD PATHOLOGY/CYTOLOGY ORDERABLE S Performing Organization Address City/[facility] [address]/[facility] Phon e Number [place], [place] [id number] [place] [address] Surgical Pathology Report (06/10/2022 11:43 AM EDT) Component Value Ref Test Analysis Performed At [facility] Range Method Time Signature Surgical [id number] ? Location: [facility] Report The signing pathologist has (i) examined the relevant preparation(s) for the [facility] specimen(s) and (ii) rendered or confirmed the diagnosis(es) . [facility] . ?Surgic al Pathology DIAGNOSIS Right lateral eyebrow, skin shave biopsy: - ??Basal cell carcinoma, no dular pattern, transected at the peripheral and deep specimen edges Electronically signed by: ?Delroy CARCAMO, PhD, Ian Verified: ??06/12/2022 14:33 ??Dermatopathologist Performed at: ??-[facility] [place]. [place], [facility] [place] SPECIMEN(S) SUBMITTED A - right lateral [...] Organization Address City/State/[place] [address] (ABNORMAL) Hemogram (06/02/2022 8:20 AM EDT)Only the most recent of14 results within the time period is included. Analysis Performed At Patho logist Time Signature WBC 7.2 4.0 - 9.5 [facility] x[facility](3)/[facility] LABORATORY RBC 2.74 (L) 4.58 - [place] 5.54 [facility] x10(6)/[facility] LABORATORY Hemoglobin 8.7 (L) 13.7 - [place] 16.5 g/dL [facility]ORY Hematocrit 25.7 (L) 40.5 - [place] 48.5 % [facility]ATORY MCV 93.8 (H) 82.9 - [place] 93.1 [facility] LABORATORY MCH 31.8 27.5 - [place] 32.1 pg [facility] MCHC 33.9 32.0 - [place] 35.7 g/dL [facility] Platelets 260 145 - 357 [place] x10(3)/[facility] LABORATORY RDWSD 51.0 (H) 36.0 - [place] 45.0 [facility] LABORATORY RDWCV 14.9 (H) 11.4 - [place] 13.8 % [facility] MPV 10.0 7.6 - 12.9 [facility] LABORATORY nRBC % Auto 0.0 % [facility] nRBC Abs Auto 0.000 0.000 - [facility] 0.000 [facility] x10(3)[facility] LABORATORY Specimen Anatomical Collection Method Collection Time Receive d Time (Source) Location / / Volume Laterality Blood 06/02/2022 8:20 AM 8:25 EDT AM EDT Resulting Agency Comment Spec In Lab Kurt Ames MD HEMATOLOGY ORDERABLES Performing Organization Address City/State/[place] [address] (ABNORMAL) Differential, Automated (06/02/2022 8:20 AM EDT)Only the most recent of14 resultswithin the time period is included. P athologist Signature Neutrophils % 61.3 % [facility] Neutr Abs (ANC) 4.44 1.70 - [facility] 6.10 [facility] x10(3)[facility] LABORATORY Lymphocytes % 25.2 % [facility] Lymphocytes Abs 1.8 0.9 - 3.2 [facility] x10(3)[facility] LABORATORY Monocytes % 10.0 % [facility] Monocyte Abs 0.7 0.3 - 0.9 [facility] x10(3)[facility] LABORATORY Eosinophils % 2.1 % [facility] Eosinophils Abs 0.2 0.0 - 0.4 [facility] x10(3)[facility] LABORATORY Basophils % 0.7 % [facility] Basophils Abs 0.0 0.0 - 0.1 [facility] x10(3)[facility] LABORATORY Immature Gran % 0.70 % [...] Abs 0.05 (H) 0.00 - 0.04 x10(3)/mcL [facility] Specimen Anatomical Collection Method Collection Time Receive d Time (Source) Location / / Volume Laterality Blood 06/02/2022 8:20 AM 2 8:25 EDT AM EDT Resulting Agency Comment Spec In Lab Kurt Ames MD HEMATOLOGY ORDERABLES Performing Organization Address City/State/ZIP Code Phon e Number [address] Heparin (unfractionated) Level (06/02/2022 6:30 AM EDT)Only the most recent of11 resultswithin the time period is included. athologist Signature Heparin UFH 0.39 IU/mL [facility] LABORATORY Comment: Heparin (anti-Xa) levels should [...] [address]/[place] [address] Magnesium (06/02/2022 12:30 AM EDT)Only the most recent of5 resultswithin the time period is included. athologist Signature Magnesium 0.83 0.69 - 1.07 [facility] mmol/L [facility] LABORATORY Specimen Anatomical Collection Method Collection Time Receive d Time (Source) Location / / Volume Laterality Blood 06/02/2022 12:30 06/02/2022 AM EDT 12:40 AM EDT Resulting Agency Comment Spec In Lab Mahendra Victor MD CHEMISTRY ORDERABLES Performing Organization Address City/State/[place] [address] (ABNORMAL) Basic Metabolic Panel (non-fasting) (06/02/2022 12:30 AM EDT)Only the most recent of6 resultswithin the time period is included. athologist Signature Glucose Lvl 151 65 - 199 [facility] mg/dL [facility] LAB[facility]ATORY Comment: Diabetes: >=200 mg/dL plus [...] Organization Address City/State/[place] [address] SCAN DOC: TELEMETRY STRIPS (06/01/2022 8:37 PM EDT)Only the most recent of8 resultswithin the time period is included. Narrative This result has an attachment that is no t available. Unknown MEDIA MGR SCAN EXT ORDR/RSLT (ABNORMAL) Urinalysis with reflex Culture (06/01/2022 4:00 AM EDT)Only the most recent of2 resultswithin the time period is included. [facility] gist Method Time Signature Glucose UA 500 Negative [facility] (Critical) mg/dL [facility] LAB[facility]ORY Comment: Urinalysis result NOT critical without a combination of Glucose greater than or equal to 500 mg/dL AND Ketones greate r than or equal to 80 mg/dL Protein UA Negative Negative mg/dL [facility] Bilirubin UA Negative Negative mg/dL [facility] [...] [facility] Nitrite UA Negative Negative [facility] Leukocytes UA Negative Negative [facility] LABORATORY Appearance UA Clear Clear [facility] Spec Lead UA >=1.030 (A) 1.005 - 1.030 [facility] Color UA Yellow Yellow [facility] LABORATORY Culture Reflexed No [facility] LABORATORY Specimen Anatomical Collection Method Collection Time Receive d Time (Source) Location / / Volume Laterality Clean Catch 06/01/2022 4:00 AM 4:26 Urine EDT AM EDT Resulting Agency Comment Spec In Lab Mahendra Victor MD URINE ORDERABLES Performing Organization Address City/State/ZIP Code Phon e Number [place], [place] [id number] [place] [address] Transfuse RBC (05/31/2022 7:36 PM EDT) Dominique Hinds MD NURSING TREATMENT ORDERABLES - BLOOD ADMIN UPPER GI ENDOSCOPY (05/31/2022 3:37 PM EDT) Component Value Ref Test Analysis Performed At [facility] Range Method Time Signature UPPER GI [facility]ATION ENDOSCOPY Endoscopy Procedure Date: 05/31/2022 3:37 PM ? Patient Name: Koko Bah ? Date of : 1940 ? Age: 81 ? Order #: [id number] ? Instrument Name: [id number] ? Procedure: ? Upper GI endoscopy Indications: ? Melena, Suspected upper ? gastrointestinal bleeding Providers: ? Giovani Pnoce, Torrey Gannon , ? Vani Wei RN, [...] Procedure Code(s): ? --- Professional --- ? 16692, Esophagogastroduode noscopy, ? flexible, transoral; with control [...] stomach ? and duodenum CPT copyright 202 [employer]. All rights reserved. The codes documented in this report are preliminary and upon professional fee coder review may be revised to meet current compliance requirements. Attending Participation: ? I was present and participated during the entire ? procedure, including non-diaz portions. ? Giovani Ponce, 05/31/2022 4:56:14 PM Number of Addenda: 0 Note Initiated On: 05/31/2022 3:37 PM Specimen (Source) Anatomical Collection Method Collection Time Re ceived Time Location / / Volume Laterality 05/31/2022 3:37 PM EDT Dominique B Guzman MD GENERAL SURGICAL ORDERABLES Performing Organization Address [...] consultant that requested your imaging first. ? Narrative [...] enlarged lymph nodes. Vasculature: Patent common iliac, charge rn al iliac, and common femoral arteries [...] the original. EXAMINATION: CT ABDOMEN AND PELVIS [facility] (GI BLEED) CLINICAL HISTORY: Significant Hb drop. [...] enlarged lymph nodes. Vasculature: Patent common iliac, charge rn al iliac, and common femoral arteries [...] healthcare consultant that requested your imaging first. Dominique Hinds MD IMG CT ORDERABLES Type and Screen Validity (05/31/2022 1:43 PM EDT)Only the most recent of2 resultswithin the time period is included. [facility] Method Time Signature T&S only [...] Organization Address City/State/[place] [address] ABORH Recheck Status (05/31/2022 1:43 PM EDT)Only the most recent of2 results within the time period is included. [facility] Method Time Signature ABORH Type [...] [address]/ZIP Code Phon e Number [address] ABO/Rh Typing (05/31/2022 1:43 PM [...] [address]/[place] [address] Antibody screen (05/31/2022 1:43 PM EDT)Only the most recent of2 resultswithin the time period is included. Patholo gist Method Time Signature Ab Screen Negative [facility] LABORATORY Expires at 06/03/2022 [facility] [id number] on: [facility] LABORATORY Specimen Anatomical Collection Method Collection Time Receive d Time (Source) Location / / Volume Laterality Blood 05/31/2022 1:43 PM 2 1:57 EDT PM EDT Resulting Agency Comment Spec In Lab Dominique Hinds MD BLOOD BANK ORDERABLES Performing Organization Address City/[facility] [address]/ZIP Code Phon e Number [address] Prepare RBC (05/31/2022 1:35 PM EDT)Only the most recent of2 resultswithin the time period is included. P athologist Signature Dispensed? Yes [facility] Specimen Anatomical Collection Method Collection Time Receive d Time (Source) Location / / Volume Laterality Blood 05/31/2022 1:35 PM 2 1:30 EDT PM EDT Dominique Hinds MD BLOOD BANK ORDERABLES Performing Organization Address City/State/[place] [address] (ABNORMAL) BLOOD GAS 2 VENOUS (05/31/2022 11:24 AM EDT) P athologist Signature pH Marco Antonio 7.38 7.32 - [facility] 7.42 [facility] LABORATORY pCO2 Marco Antonio 40 (L) 41 - 51 [facility] LABORATORY pO2 Marco Antonio 18 (L) 25 - 40 [facility] LABORATORY HCO3 Marco Antonio 23.3 mmol/L [facility] BE Marco Antonio -1.8 mmol/L [facility] Hgb Blood Gas 7.0 (L) 13.7 - [facility] 16.5 g/dL [facility] LABORATORY O2HB Marco Antonio 24.3 % [facility] [...] [facility] BGas Source Venous [facility] LABORATORY Specimen Anatomical Collection Method Collection Time Receive d Time (Source) Location / / Volume Laterality Blood 05/31/2022 11:24 05/31/2022 AM EDT 11:24 AM EDT Dominique Hinds MD CHEMISTRY ORDERABLES Performing Organization Address City/State/ZIP Code Phon e Number [address] TSH [place] (05/31/2022 11:20 AM EDT) P athologist Signature TSH 1.67 0.27 - 4.20 [facility] mcIU/mL [facility] LABORATORY Comment: Reference Interval (mcIU/mL): Females: ??First Trimester: 0.23-3.88 ??Second Trimester: 0.22-3.90 ??Third Trimester: 0.44-4.66 Specimen Anatomical Collection Method Collection Time Receive d Time (Source) Location / / Volume Laterality Blood 05/31/2022 11:20 05/31/2022 AM EDT 11:28 AM EDT Resulting Agency Comment Spec In Lab Dominique Hinds MD CHEMISTRY ORDERABLES Performing Organization Address City/[facility] [address]/ZIP Code Phon e Number [address] XR Chest PA [...] consultant that requested your imaging first. ? Narrative [...] healthcare consultant that requested your imaging first. Dominique Hinds MD IMG DX ORDERABLES Blue Tube HOLD (05/31/2022 10:50 AM EDT) athologist Signature Blue Hold Sample in [facility] lab. [facility] LABORATORY Specimen Anatomical Collection Method Collection Time Receive d Time (Source) Location / / Volume Laterality Blood Venous Draw / 05/31/2022 10:50 05/31/2022 Unknown AM EDT 11:05 AM EDT Brittany Ramirez MD HEMATOLOGY ORDERABLES Performing Organization Address City/State/[place] [address] Troponin (05/31/2022 10:50 AM EDT) athologist Signature Troponin-T <0.01 0.00 - 0.00 [facility] ng/mL [facility] LABORATORY Comment: The 99th percentile for [...] additional sample may be indicated. Reference: Third Converse Definition of Myocardial Infarction. Journal of the [employer] 2012;60:1581-98 Specimen Anatomical Collection Method Collection Time Receive d Time (Source) Location / / Volume Laterality Blood 05/31/2022 10:50 05/31/2022 AM EDT 11:03 AM EDT Resulting Agency Comment Spec In Lab Dominique Hinds MD CHEMISTRY ORDERABLES Performing Organization Address City/State/ZIP Code Phon e Number [address] Phosphorus (05/31/2022 10:50 AM EDT)Only the most recent of2 resultswithin the time period is included. P athologist Signature Phosphorus 3.2 2.5 - 4.5 [facility] XIAO mg/dL [facility] LABORATORY Specimen Anatomical Collection Method Collection Time Receive d Time (Source) Location / / Volume Laterality Blood 05/31/2022 10:50 05/31/2022 AM EDT 11:03 AM EDT Resulting Agency Comment Spec In Lab Dominique Hinds MD CHEMISTRY ORDERABLES Performing Organization Address City/[facility] [address]/ZIP Code Phon e Number [address] (ABNORMAL) pro-Brain Natriuretic Peptide (05/31/2022 10:50 AM EDT) P athologist Signature ProBNP 1,077 (H) <=449 [place] pg/mL [facility] LABORATORY Specimen Anatomical Collection Method Collection Time Receive d Time (Source) Location / / Volume Laterality Blood 05/31/2022 10:50 05/31/2022 AM EDT 11:03 AM EDT Resulting Agency Comment Spec In Lab Dominique Hinds MD CHEMISTRY ORDERABLES Performing Organization Address City/[facility] [address]/ZIP Code Phon e Number [address] Lipase (05/31/2022 10:50 AM EDT) athologist Signature Lipase 41 0 - 60 [facility] XIAO unit/L [facility] LABORATORY Specimen Anatomical Collection Method Collection Time Receive d Time (Source) Location / / Volume Laterality Blood Venous Draw / 05/31/2022 10:50 05/31/2022 Unknown AM EDT 11:11 AM EDT Resulting Agency Comment Spec In Lab Zain Champion MD CHEMISTRY ORDERABLES Performing Organization Address City/[facility] [address]/ZIP [facility] [place] [place] [address] (ABNORMAL) Hepatic Function Panel (05/31/2022 10:50 AM EDT) Analysis Performed At Patho logist Time Signature Total Protein 6.4 6.1 - 8.0 [facility] XIAO g/dL [facility]ORY Albumin 4.1 3.2 - 5.2 [facility] XIAO g/dL [facility] AST 24 0 - 39 [facility] XIAO unit/L [facility] ALT 44 0 - 55 [facility] XIAO unit/L [facility] Alk Phos 63 40 - 130 [facility] unit/L [facility] Total <0.2 (L) 0.2 - 1.3 [place] Bilirubin mg/dL [facility] Bili, Direct 0.1 0.0 - 0.3 [facility] XIAO mg/dL [facility] LABOR[facility]ORY Specimen Anatomical Collection Method Collection Time Receive d Time (Source) Location / / Volume Laterality Blood Venous Draw / 05/31/2022 10:50 05/31/2022 Unknown AM EDT 11:11 AM EDT Resulting Agency Comment Spec In Lab Zain Champion MD CHEMISTRY ORDERABLES Performing Organization Address City/[facility] [address]/[facility] [place] [address] EKG 12 Lead (05/31/2022 10:11 AM EDT)Only the most recent of3 resultswithin the time period is included. Component Value Ref Range Test Analysis Performed Pathologis t Method Time At Signature Ventricular rate 106 BPM MUSE SYSTEM QRS Duration 122 ms MUSE SYSTEM Q-T Interval 368 ms MUSE SYSTEM QTC Calculated 488 ms MUSE SYSTEM (Bezet) Calculated [place] -43 degrees MUSE SYSTEM Calculated [place] 109 degrees MUSE SYSTEM INTERPRETATION Atrial fibrillation with rapid ventricular response MUSE SYSTEM Left axis deviation Minimal voltage criteria for LVH, may be normal variant ( [place] product ) Cannot rule out Anterior infarct , age undetermined Abnormal ECG When compared with ECG of 20-MAY-2022 19:04, No significant change was found I personally reviewed the tracing and edited the fellows int erpretation Confirmed by fellow MD Mike, [place] ([id number]) on 022 8:36:21 PM Confirmed by MD [...] Laterality Volume Narrative 05/20/2022 7:09 PM EDT ?[facility] ? Cardiac Cathete rization/Intervention Report ? Patient Name: Koko Bah. ? Procedure Date: 05/20/2022 ? A #: [id number] ? Primary Physician: Abundio Servin ? Case #: [id number] ? File Name: [id number] ? Catheterization Order Number: [id number] ? [facility] ? Final Report [place], [place] ? Patient Name: ? Koko Sullivan. Klarissa uson ? ID#: ?[id number] ? : ?1940 ? Procedure Date: ? [...] procedure was Urgent. The indication for ?the laborer/grade check visit is cardiomyo nita. Chest pain symptom [...] ?3.5 guiding catheter and a 3.5 Fr [facility] [address] ??20 Mhz. ??Imaging ?was successful. ??Image [...] A premounted 2. 75 x 30 mm [place] (AMPARO) was deployed ? with a maximum [...] note might be different from the original. [facility] Cardiac Catheterization/Intervention Re port Patient Name: Koko Bah Procedure Date: 05/20/2022 A #: [id number] Primary Physician: Abundio Servin Case #: File Name: [id number] Catheterization Order Number: [id number] [facility] Final Report [place], [place] Patient Name: Koko Bah ID#: [id number] : 1940 Procedure Date: May 20, 2022 [...] designated a s ASA Class IV. The [facility] clinical frailty scale is 3: Managing [...] e was Urgent. The indication for the laborer/grade check visit is cardiomyopathy. C hest pain symptom assessment was: Typical Angina. Technique: A 6 SLFr sheath was inserted in the [facility] radial artery utilizing the Seldinger technique. The [...] 3.5 guiding catheter and a 3.[address] [facility] [address] 20 Mhz. Imaging was successful. Image quality was excel lent. The ostial OM1 showed moderate diffuse atherosclerotic plaque . Post Intervention: The stent was well e xpanded and apposed. Indication for Intervention: Coronary intervention was indicated for primary therapy for an acute myocardial infarction. The priority for the procedure was Urgent. The [facility] indication for the procedure was N SILVIA-ACS. [...] A premounted 2.75 x 30 mm [place] (AMPARO) was deployed with a maximum inflation [...] require modification of this regimen. Consult D [facility] Interventional Cardiology for [...] Glucose 123 65 - 199 [facility] mg[facility]dL [facility] Comment: Supplemental ranges: <140 mg/dL before meals <180 mg/dL all other times of the day Specimen Anatomical Collection Method Collection Time Receive d Time (Source) Location / / Volume Laterality Blood 05/20/2022 5:42 PM 2 5:42 EDT PM EDT Fito Summers MD POINT OF CARE TEST ORDERABLE S Performing Organization Address City/State/[place] [address] (ABNORMAL) BMP w/fasting Glucose (05/20/2022 10:50 AM EDT) P athologist Signature Glucose 152 (H) 65 - 99 [facility] Fasting mg/dL [facility] Comment: ?Fasting* Glucose Interpretive C [...] of Diabetes Mellitus, Position Statement from the [employer]. ??Diabete s Care, Volume 33, [...] [address]/[place] [address] TSH (05/18/2022 8:00 PM EDT) athologist Signature TSH 2.27 0.27 - 4.20 [facility] mcIU/mL [facility] Comment: Reference Interval (mcIU/mL): Females: [...] [address]/[place] [address] (ABNORMAL) Urinalysis Microscopic Exam [...] Patiño MD URINE ORDERABLES Performing Organization Address City/[facility] [address]/ZIP Code Phon e Number [address] XR Chest One View [...] Electronically signed by: Tiffanie George MD , [facility] ([phone]), at 05/16/2022 9:27 PM Narrative 05/16/2022 9:27 [...] Electronically signed by: Tiffanie George MD , [facility] ([phone]), at 05/16/2022 9:27 PM Fito Summers MD IMG DX ORDERABLES ECHOCARDIOGRAM COMPLETE W CONTRAST (05/16/2022 12:49 PM EDT) athologist Signature EF 28 [facility] Anatomical Region Laterality Modality Cardiac Other Specimen (Source) Anatomical Collection Method Collection Time Re ceived Time Location / / Volume Laterality 05/16/2022 11:22 AM EDT Narrative 05/16/2022 1:54 PM EDT ?[facility] ?[address] ? [place] [address] ?Voice: ?Fax: ? Echocardiogram Report Name: KOKO BAH ?Study Date: 05/16/2022 11:22 AM ? Patient Location: [address] [place] [address] : 1940 ? Height: 67.5 in ? Account: [id number] Age: 81 yrs ? Weight: 176 lb Gender: Male ?BSA: 1.9 m2 Ordering Physician: FITO SUMMERS Referring Physician: MALI FLORIAN Performed By: Jolene Bernard RDCS Exam Location: [facility]. Interpretation Summary Left ventricle is mildly [...] and LV systolic dysfunction are new. Procedure Complete-[id number]. Image enhancement Optiso n was used for [...] note might be different from the original. [facility] [address] [place] [address] Voice: Fax: Echocardiogram Report Name: NIURKAKOKO Study Date: 05/2022 11:22 AM Patient Location: [address] [place] [address] : 1940 Height: 67.5 in Account: [id number] Age: 81 yrs Weight: 176 lb Gender: Male BSA: 1.9 m2 Ordering Physician: FITO SUMMERS Referring Physician: MALI FLORIAN Performed By: Jolene Bernard [facility] Exam Location: [facility]. Interpretation Summary Left ventricle is mildly [...] and LV systolic dysfunction are new. Procedure Complete-[id number]. Image enhancement Optiso n was used for [...] time period is included. Analysis Performed At [facility] Time Signature pH Art 7.33 (L) 7.35 - [facility] 7.45 [facility] pCO2 Art 41 35 - 45 [facility] pO2 Art 131 (H) 85 - 104 [facility] HCO3 Art 21.1 20.0 - [facility] 26.0 [facility] mmol/L [facility] BE Art -4.8 (L) -3.0 - 3.0 [facility] mmol/L [facility] Hgb Blood Gas 13.4 (L) 13.7 - [facility] 16.5 g/dL [facility] O2HB Art 96.9 94.0 - [facility] 97.0 % [facility] COHB Art 1.4 % [facility] [...] Organization Address City/State/[place] [address] (ABNORMAL) APTT (05/15/2022 12:30 [...] [address]/ZIP Code Phon e Number [address] (ABNORMAL) Prothrombin Time (05/15/2022 12:30 PM EDT) athologist Signature PT 12.9 (H) 9.4 - 12.5 [facility] LABORATORY INR 1.1 [facility] [...] [facility] [address]/ZIP [facility] [place] [place] Phon e Number [address] Gold Tube HOLD (05/15/2022 12:20 PM EDT) athologist Signature Gold Hold Sample in [facility] LABORATORY Specimen Anatomical Collection Method Collection Time Receive d Time (Source) Location / / Volume Laterality Blood No Charge / 05/15/2022 12:20 05/15/2022 Unknown PM EDT 12:20 PM EDT Lc TRIPP CHEMISTRY ORDERABLES Performing Organization Address City/[facility] [address]/ZIP Code Phon e Number [place] [phone] CK (05/15/2022 12:00 PM EDT) P athologist Signature CK, Total 87 0 - 200 [facility] unit/L [facility] Specimen Anatomical Collection Method Collection Time Receive d Time (Source) Location / / Volume Laterality Blood Venous Draw / 05/15/2022 12:00 05/15/2022 Unknown PM EDT 12:19 PM EDT Resulting Agency Comment Spec In Lab Fito Summers MD CHEMISTRY ORDERABLES Performing Organization Address City/[facility] [address]/ZIP [facility] [place] [place] Phon e Number [place] [phone] Film Library- Storage Only CT Abdomen (05/15/2022 9:32 AM EDT) Specimen (Source) Anatomical Location Collection Method / Collectio n Time Received Time / Laterality Volume Narrative [facility] - 05/15/2022 9:32 AM EDT This exam is auto-finalizing. It's purpo se is for storage only. Matt Branham MD [facility] FILM LIBRARY ORDERABLES Performing Organization Address [facility] [address]/ZIP Code Phon e Number [place], [place] Film Library- Storage Only DX Chest (05/15/2022 9:31 AM EDT) Specimen (Source) Anatomical Location Collection Method / Collectio n Time Received Time / Laterality Volume Narrative RAD - 05/15/2022 9:31 AM EDT This exam is auto-finalizing. It's purpo se is for storage only. Matt Branham MD [facility] FILM LIBRARY ORDERABLES Performing Organization Address City/[facility] [address]/ZIP Code Phon e Number [place], [place] from Last 3 Months Insurance Payer Benefit Plan / Subscriber ID Effective Phone Address T ype Group Dates MEDICARE MEDICARE PART A [id number] 2007-Pres [phone] [address] [place] [id number] 2007-Pres [phone] [address] [facility] ent [address] [place] [address] (Home) [place] [address] Advance Directives Latest Code Status on File [...] capacity to make decision: Yes Care Teams Edger Tailer Relationship Specialty Start Date End Date Bobby Das MD PCP - General 10/02/10 [facility] Medical [facility] [place] [phone]
--- OUTSIDE RECORDS SUMMARY | 2022-08-02 09:53 | XMS_ITS | Encounter Summary ---
:1940 Author Organization [facility] [place] [address] Care Team Providers Name Role Phone Bobby Das MD Primary Care Provider Reason for Referral Consultation (Routine) - Authorized Specialty Diagnoses / Procedures Referred By Contact Refer red To Contact Gastroenterology Diagnoses Adenomatous polyp of colon, unspecified part of colon Colonoscopy 06/25/22, discussed w/Dr. Ponce needs to be seen in clinic to discuss polyp / removal iso plavix & DOAC Isi Celaya MD [facility] D [facility] [place] [address] [place] [address] Phone: Fax: Referral ID Status Reason Start Date Expiration Visits Visits Date Requested Authorized [id number] Authorized Consult, 06/25/2022 06/25/2023 1 1 Test & Treat Scheduling Instructions To be seen in ~2mo Encounter Details Date Type Department Care Team Description 06/25/2022 Orders Only Gastroenterology at [facility] Isi Celaya Adenomatous polyp of [facility] Bobby [place], [place] [address] [facility] part of colon [phone] [facility] [address] Social History Tobacco Use Types Packs/Day Years [...] [facility] DR GASTROENTEROLOGY DEPT [place] [phone] (Wo rk) 09/05/2022 Appointment Cardiology Trinity Reid MD [facility] CARDIOLOGY [place], [place] [address] (Wo rk) 09/05/2022 Office Visit Cardiology Trinity Reid MD [facility] CARDIOLOGY [place], [place] [address] (Wo rk) Scheduled Referrals Name Type Priority Associated Order Schedule Diagnoses Referral to Outpatient Routine Adenomatous polyp Ordered: Gastroenterology Referral of colon, 06/25/2022 unspecified part of colon documented as of this encounter Visit Diagnoses Diagnosis Adenomatous polyp of colon, unspecified part of colon documented in this encounter Care Teams Etiology Teacher Relationship Specialty Start Date End Date Bobby Das MD PCP - General 10/02/[address] [place] [address] [place] [id number] documented as of this encounter
--- OUTSIDE RECORDS SUMMARY | 2022-08-02 09:53 | XMS_ITS | Encounter Summary ---
:1940 Author Organization [facility] [place] [address] Care Team Providers Name Role Phone Abby Das MD Primary Care Provider Encounter Details Date Type Department Care Team Description 06/25/2022 Anesthesia Event Gastroenterology at [facility] Abby Alfaro MD [facility] [place] [address] [facility] David Lewis CRNA [facility] [place] [address] [place] [address] Anesthesia Record Procedure Summary Procedure Name [...] vein (antecubital fossa), Mame Peterson RN left; ugzw-kxl-chwlkc catheter system; 18 gauge; Present on admission PIV 06/25/22; 1046; great 06/25/22 1046 by saphenous vein (medial side of Mame Peterson RN leg), right; wocy-sws-xoirdk catheter system; Anatomical Landmarks; 18 gauge; Present [...] Summary Date: 06/25/22 Room / Location: [facility] ENDO 4 / [facility] ENDOSCOPY Anesthesia Start: 1101 Anesthesia Stop: 1202 Procedures: EGD, UPPER GI ENDOSCOPY (N/A Trunk) COLONOSCOPY; W CONTROL OF BLEEDING, ANY METHOD (N/A Trunk) SMALL BOWEL ENTEROSCOPY (N/A Trunk) Diagnosis: (melena +./-) Surgeons: Giovani Ponce MD Responsible Provider: Abby Alfaro MD Anesthesia Type: MAC ASA Status: 3 All Anesthesia Providers: Anesthesiologist: Abby Alfaro MD SITE INSPECTOR: David Gill CRNA Vitals Value Taken Time BP 102/85 06/25/22 1240 Temp Pulse Resp 16 06/25/22 1220 SpO2 95 % 06/25/22 1245 Pain Level 0 06/25/22 1220 Vitals shown include unvalidated device data. Patient [facility] Level of Consciousness: Awake and Alert [...] Date Noted ??? Coronary artery disease involving [place] coronary artery of [place] heart without angina lzjtajup04/04/2022 ??? HFrEF (heart failure with reduced ejection [...] Biopsy Spine 07/20/2019 Abby Marshall MD [facility] INTERVENTIONL RAD ??? IR VERTEBROPLASTY LUMBAR MULTIPLE LEVELS 07/20/2019 IR Vertebroplasty Lumbar Multiple Levels 07/20/2019 Abby Marshall MD [facility] INTERVENTIONL RAD ??? IR VERTEBROPLASTY THORACIC SINGLE LEVEL 10/25/2020 IR Vertebroplasty Thoracic Single Level 10/25/2020 Matt Chisholm MD [facility] INTERVENTIONL RAD ??? PRO EMBLC/THRMBC FEMORAL POPLITEAL AORTO-ILIAC ARTERY Left 05/15/2022 EMBOLECTOMY OR THROMBECTOMY, FEMOROPOPLITEAL, AORTOILIAC ARTERY BY LEG INCISION (WRVU 19.48) performed by Fito Summers MD at [facility] MAIN OR ??? PRO UPPER GI ENDOSCOPY, CTRL BLEED 05/31/2022 EGD, W CONTROL OF BLEEDING, ANY METHOD performed by Giovani Ponce MD at [facility] ENDOSCOPY ??? PRO UPPER GI ENDOSCOPY, DIAGNOSTIC N/A 05/31/2022 EGD, UPPER GI ENDOSCOPY performed by Giovani Ponce MD at [facility] ENDOSCOPY Social History Tobacco Use ??? [...] risks discussed with patient. Plan discussed with SITE INSPECTOR. Anesthesia Screening documented in this encounter Plan of Treatment Upcoming Encounters Date Type Specialty Care Team Description 08/08/2022 Office Visit Gastroenterology Negra Collins MD [facility] GASTROENTEROLOGY DEPT [place], [place] [address] (Wo rk) 09/05/2022 Appointment Cardiology Trinity Reid MD [facility] CARDIOLOGY [place], [place] [address] (Wo rk) 09/05/2022 Office Visit Cardiology Trinity Reid MD [facility] CARDIOLOGY [place], [place] [address] (Wo rk) documented as of [...] mg documented in this encounter Care Teams Seal Mixing Operator Relationship Specialty Start Date End Date Abby Das MD PCP - General 10/02/[address] [place] [address] [place] [phone] documented as of this encounter
--- OUTSIDE RECORDS SUMMARY | 2022-08-02 09:53 | XMS_ITS | Encounter Summary ---
:1940 Author Organization [facility] [place] [address] Care Team Providers Name Role Phone Bobby Das MD Primary Care Provider Encounter Details Date Type Department Care Team Description 06/25/2022 Surgery Gastroenterology at [facility] Giovani Ponce, EGD, UPPER GI [facility] Bobby gilliland [place] [address] [facility] [phone] [place], [place] [address] Social History Tobacco Use Types [...] the day after the procedure, use an ounu-ccl-pwxpvwl spray to numb your throat. Sucking on [...] occurs, please contact your Doctor. Please call [phone] before 8pm Mon-Fri with problems, questions or concerns. If you call after 8pm or on weekends, call the Hospital at [phone] and ask to speak to the Direct Chill Casting Operator environmental specialist and the metal drilling machine operator will contact that person for you. When should you call for help? Call 111 anytime you think you may need emergency [...] Where can you learn more? [facility] [place] [facility] View your After Visit Summary and more online at [email or web address] If you would like to provide feedback about your hospital experience, please call the Office of Patient and Family Relations at . If you have received this After Visit Summary in error, please immediately return it in person to the department, or notify the [facility] Privacy Office by calling toll free at between the hours of 8AM and 5PM to arrange for our retrieval of the documents at no cost to you. Content Version: 12.2 ?? [id number] [employer]. Care instructions adapted under license by [facility]. If you have questions about a medical condition or this instruction, always ask your healthcare professional. [employer] disclaims any warranty or liability for [...] occurs, please contact your Doctor. Please call [phone] before 8pm Mon-Fri with problems, questions or concerns. If you call after 8pm or on weekends, call the Hospital at [phone] and ask to speak to the Direct Chill Casting Operator environmental specialist and the metal drilling machine operator will contact that person for you. When should you call for help? Call [phone] anytime you think you may need emergency [...] Where can you learn more? [facility] [place] [facility] View your After Visit Summary and more online at [email or web address] If you would like to provide feedback about your hospital experience, please call the Office of Patient and Family Relations at . If you have received this After Visit Summary in error, please immediately return it in person to the department, or notify the [facility] Privacy Office by calling toll free at between the hours of 8AM and 5PM to arrange for our retrieval of the documents at no cost to you. Content Version: 12.2 ?? [phone] [employer]. Care instructions adapted under license by [facility]. If you have questions about a medical condition or this instruction, always ask your healthcare professional. [employer] disclaims any warranty or liability for your [...] 21 (FLONASE) 50 mcg/actuation Nare route daily [place], Suspension as needed. fluorouraciL (EFUDEX) 5 % [...] ischemia I99.8 ??? Coronary artery disease involving [place] coronary artery of [place] heart without angina gssfuwczH60.10 ??? HFrEF (heart failure with reduced ejection [...] MD [facility] GASTROENTEROLOGY DEPT [place], [place] [address] (Wo rk) 09/05/2022 Appointment Cardiology Trinity Reid MD [facility] CARDIOLOGY [place], [place] [address] (Wo rk) 09/05/2022 Office Visit Cardiology Trinity Reid MD [facility] CARDIOLOGY [place], [place] [address] (Wo rk) documented as of [...] Component Value Ref Test Analysis Performed At [facility] Range Method Time Signature UPPER GI [facility] ENDOSCOPY Endoscopy Procedure Date: 06/25/2022 10:33 AM ? Patient Name: oKko Zamora ? Date of : 1940 ? Age: 81 ? Order #: [id number] ? Instrument Name: EC-760P- [id number]- [id number] ? Procedure: ? Upper GI endoscopy Indications: ? Recent gastrointestinal bleeding Providers: ? Giovani Ponce, Isi puente, ? Brissa Vee RN, Darrell ? Confalone Referring MD: ?[facility]: ? Propofol per Anesthesia Complications: ? [...] [facility] Method Time Signature COLONOSCOPY [facility] Endoscopy Procedure Date: 06/25/2022 10:33 AM ? Patient Name: Koko Zamora ? Date of : 1940 ? Age: 81 ? Order #: [id number] ? Instrument Name: EC-760P- [id number] ? Procedure: ? Colonoscopy Indications: ? Gastrointestinal [...] Procedure Code(s): ? --- Professional --- ? 39713, Colonoscopy, flexib le; with ? control of [...] of sigmoid ? colon CPT copyright 2021 [employer]. All rights reserved. The codes documented in this report are preliminary and upon middle school combination teacher review may be revised to meet current [...] Procedure) documented in this encounter Care Teams Commercial Lines Account Executive Relationship Specialty Start Date End Date Bobby Das MD PCP - General 10/02/[address] [place] [address] [place] [phone] documented as of this encounter
--- OUTSIDE RECORDS SUMMARY | 2022-08-02 09:53 | XMS_ITS | Encounter Summary ---
:1940 Author Organization [facility] [place] [address] Care Team Providers Name Role Phone Bobby Das MD Primary Care Provider Reason for Visit Reason Comments Skin Lesion Consultation (Routine) - Closed Specialty Diagnoses / Procedures Referred By Contact Refer red To Contact Dermatology Diagnoses Lesion on right eye = hx of skin cancer Bobby Das MD [facility] Dermatology Procedures Lesion on right eye = hx of skin cancer [address] [facility] [address] [place] [address] [place] [address] Fax: Referral ID Status Reason Start Date Expiration Date Visits Requ ested Visits Authorized [id number] Closed 04/22/2022 04/22/2023 1 1 Encounter Details Date Type Department Care Team Description 06/10/2022 Office Visit Dermatology at [facility], Neoplasm of Road unspecified behavior [address] [facility] [place] [address] [address] and skin [phone] DERMATOLOGY [place] [address] Social History Tobacco Use Types Packs/Day Years [...] nevi N SCC N BCC 2015: right islam, BCC s/p mohs 09/2018: right eyebrow, BCC [...] N/A RTC: Pending pathology []Note routed to dental secretary []Recall placed in scheduling system []Appointment scheduled at checkout Scribe attestation: Sidney Higgins and Loretta Gomez CMA performed the documentation for this encounter in the presence of and acting as a scribe for Noel Burgos MD. I performed the above scribed service and agree with the accuracy of the documentation in this encounter. Reviewed and signed by: Noel Burgos MD [facility] Loretta Cohen MD - 06/10/2022 11:00 AM EDT DERMATOLOGY TELEPHONE NOTE Koko Zamora 06/17/2022 [id number] Reason for call: Discuss biopsy results I [...] MD [facility] GASTROENTEROLOGY DEPT [place], [place] [address] (Wo obb) 09/05/2022 Appointment Cardiology Trinity Reid MD [facility] CARDIOLOGY [place], [place] [address] (Rebekah rojas) 09/05/2022 Office Visit Cardiology Trinity Reid MD [facility] ER DR CARDIOLOGY [place] [address] (Wo rk) documented as of this encounter [...] Organization Address City/State/[place] [address] Surgical Pathology Report (06/10/2022 11:43 AM EDT) Component Value Ref Test [facility] Range Method Time Signature Surgical [id number] ? Location: [facility] Report The signing pathologist has (i) examined [...] [facility] Dept[facility] of [facility]ology, [place], [place] SPECIMEN(S) SUBMITTED A - right lateral [...] Organization Address City/State/[place] [address] [facility] [address] documented in this encounter Visit Diagnoses Diagnosis Neoplasm of unspecified behavior of bone , soft tissue, and skin documented in this encounter Care Teams Field Attendant Relationship Specialty Start Date End Date Bobby Das MD PCP - General 10/02/[address] [place] [address] [place] [address] documented as of this encounter
--- OUTSIDE RECORDS SUMMARY | 2022-08-02 09:53 | XMS_ITS | Encounter Summary ---
:1940 Author Organization [facility] [place] [address] Care Team Providers Name Role Phone Bobby Das MD Primary Care Provider Reason for Visit Reason Comments Medication Refill Encounter Details Date Type Department Care Team Description 07/31/2022 Refill Vascular Surgery at [facility] Nasrin Parra PA [facility], [place] [address] VASCULAR SURGERY [phone] [place], [place] [address] (Wo rk) Social History Tobacco [...] MD [facility] GASTROENTEROLOGY DEPT [place], [place] [address] (Wo rk) 09/05/2022 Appointment Cardiology Trinity Reid MD [facility] CARDIOLOGY [place], [place] [address] (Wo rk) 09/05/2022 Office Visit Cardiology Trinity Reid MD [facility] CARDIOLOGY [place], [place] [address] (Wo rk) documented as of this encounter Visit Diagnoses Not on filedocumented in this encounter Care Teams Ammunition Assembly Laborer Relationship Specialty Start Date End Date Bobby Das MD PCP - General 10/02/[address] [place] [address] [place] [phone] documented as of this encounter
--- OUTSIDE RECORDS SUMMARY | 2022-08-02 09:53 | XMS_ITS | Encounter Summary ---
:1940 Author Organization [facility] [place] [address] Care Team Providers Name Role Phone Bobby Das MD Primary Care Provider Reason for Referral Consultation (Routine) - Closed Specialty Diagnoses / Referred By Contact Referred To Contact Procedures Cardiac Rehabilitation Diagnoses HFrEF (heart failure with reduced ejection fraction) Coronary artery disease involving [place] coronary artery of [place] heart without angina pectoris Alan Reid Cardiac Rehab, MD Kurt [address] [place], [place] CARDIOLOGY [address] [place] [address] Referral ID Status Reason Start Date Expiration Date Visits V isits Requested Authorized [id number] Closed Consult, 06/20/2022 12/17/2022 36 36 Test & Treat Encounter Details Date Type Department Care Team Description 06/20/2022 Orders Only Cardiology at [facility] Alan Reid HFrEF (heart failure with re duced ejection fraction); [facility] MD Kurt Coronary artery disease involving [place] coronary artery of [place] heart [place] [address] CARDIOLOGY [phone] [place], [place] [address] (Wo rk) Social History Tobacco [...] MD [facility] GASTROENTEROLOGY DEPT [place], [place] [address] (Wo rk) 09/05/2022 Appointment Cardiology Trinity Reid MD [facility] CARDIOLOGY [place], [place] [address] (Wo rk) 09/05/2022 Office Visit Cardiology Trinity Reid MD [facility] CARDIOLOGY [place], [place] [address] (Wo rk) Scheduled Referrals Name Type Priority Associated Diagnoses [facility] to [facility] Referral Routine HFrEF (heart failure Ordered: Cardiac Rehab with reduced 06/20/2022 ejection fractio n) Coronary artery disease involving [place] coronary artery of [place] heart without angina pectoris documented as of this encounter Visit Diagnoses Diagnosis HFrEF (heart failure with reduced ejecti on fraction) Coronary artery disease involving [place] coronary artery of [place] heart without angina pectoris documented in this encounter Care Teams Chief Client Officer Relationship Specialty Start Date End Date Bobby Das MD PCP - General 10/02/[address] [place] [address] [place] [phone] documented as of this encounter
--- OUTSIDE RECORDS SUMMARY | 2022-08-02 09:53 | XMS_ITS | Encounter Summary ---
:1940 Author Organization [facility] [place] [address] Care Team Providers Name Role Phone Bobby Das MD Primary Care Provider Encounter Details Date Type Department Care Team Description 07/01/2022 Telephone Dermatology at [place] [facility], Zainab Dupree, FEED MIXER [address] [place] [address] Social History Tobacco Use Types Packs/Day [...] [facility] DR GASTROENTEROLOGY DEPT [place], [place] [address] (Wo rk) 09/05/2022 Appointment Cardiology Trinity Reid MD [facility] CARDIOLOGY [place], [place] [address] (Wo rk) 09/05/2022 Office Visit Cardiology Trinity Reid MD [facility] CARDIOLOGY [place], [place] [address] (Wo rk) documented as of this encounter Visit Diagnoses Not on filedocumented in this encounter Care Teams Car And Yard Supervisor Relationship Specialty Start Date End Date Bobby Das MD PCP - General 10/02/[address] [place] [address] [place] [phone] documented as of this encounter
--- OUTSIDE RECORDS SUMMARY | 2022-08-02 09:53 | XMS_ITS | Encounter Summary ---
:1940 Author Organization [facility] Address [facility] [place] [address] Care Team Providers Name Role Phone Bobby Das MD Primary Care Provider Encounter Details Date Type Department Care Team Description 06/24/2022 Telephone Gastroenterology at [facility] Alan August MD [facility] [place] [address] GASTROENTEROLOGY DEPT [phone] [place], [place] [address] (Wo rk) Social History Tobacco [...] data. [facility] [...] and no diverticulosis. This was done at [facility]. HgB 8.6 today. There has not [...] MD [facility] GASTROENTEROLOGY DEPT [place], [place] [address] (Wo rk) 09/05/2022 Appointment Cardiology Trinity Reid MD [facility] CARDIOLOGY [place], [place] [address] (Wo rk) 09/05/2022 Office Visit Cardiology Trinity Reid MD [facility] CARDIOLOGY [place], [place] [address] (Wo rk) documented as of this encounter Visit Diagnoses Not on filedocumented in this encounter Care Teams It Security Engineer Relationship Specialty Start Date End Date Bobby Das MD PCP - General 10/02/[address] [place] [address] [place] [phone] documented as of this encounter
--- OUTSIDE RECORDS SUMMARY | 2022-08-02 09:53 | XMS_ITS | Encounter Summary ---
:1940 [place] [address] Care Team Providers Name Role Phone Bobby Das MD Primary Care Provider Reason for Referral Consultation (Routine) - Authorized Specialty Diagnoses / Procedures Referred By Contact Refer red To Contact Dermatology Diagnoses Basal cell carcinoma (BCC) of right forehead Loretta Cohen MD Leboeuf, Matthew R, MD [facility] [address] [place] [address] [place] [address] Fax: Referral ID Status Reason Start Date Expiration Visits Visits Date Requested Authorized [id number] Authorized Consult, 06/17/2022 06/17/2023 1 1 Test & Treat Encounter Details Date Type Department Care Team Description 06/17/2022 Orders Only Dermatology at [facility] Basal cell carcinoma Nicol CARCAMO (BCC) of right [address] [place] [address] DERMATOLOGY [place], [place] [address] Social History Tobacco Use Types [...] Collins MD [facility] GASTROENTEROLOGY DEPT [place], [place] [address] (Wo rk) 09/05/2022 Appointment Cardiology Trinity Reid MD [facility] CARDIOLOGY [place], [place] [address] (Wo rk) 09/05/2022 Office Visit Cardiology Trinity Reid MD [facility] CARDIOLOGY [place], [place] [address] (Wo rk) Scheduled Referrals Name Type Priority Associated Order Schedule Diagnoses Referral to Outpatient Referral Routine Basal cell Ordered: Dermatology carcinoma (BCC) of 2 right forehead documented as of this encounter Visit Diagnoses Diagnosis Basal cell carcinoma (BCC) of right fore head documented in this encounter Care Teams Pack Worker Supervisor Relationship Specialty Start Date End Date Bobby Das MD PCP - General 10/02/[address] [place] [address] [place] [address] documented as of this encounter
--- OUTSIDE RECORDS SUMMARY | 2022-08-02 09:53 | XMS_ITS | Encounter Summary ---
:1940 [place] [address] Care Team Providers Name Role Phone Bobby Das MD Primary Care Provider Encounter Details Date Type Department Care Team Description 06/13/2022 Tech Visit Vascular Lab at [facility], [place] [address] Social History Tobacco Use Types Packs/Day [...] [facility] [address] GASTROENTEROLOGY DEPT [place], [place] [address] (Wo rk) 09/05/2022 Appointment Cardiology Trinity Reid MD [facility] CARDIOLOGY [place], [place] [address] (Wo rk) 09/05/2022 Office Visit Cardiology Trinity Reid MD [facility] CARDIOLOGY [place], [place] [address] (Wo rk) documented as of this encounter Procedures Procedure Name Priority Date/Time Associated Diagnosis Comme nts JOSSELYN, LEGS, MULTIPLE Routine 06/13/2022 7:13 AM Limb ischemia R esults for this LEVELS EDT procedure are i n the results section. documented in this encounter Results JOSSELYN, legs, multiple levels (06/13/2022 7:13 AM EDT) Component Value Ref Test Analysis Performed At [facility] Range Method Time Signature VB Text Department: Vascular Surgery Lab [facility]AS[facility] Report Patient: [id number] (ETTA BAH) CPT: 61702 Referring Physician: FITO SUMMERS ?? Phone: Indications: s/p L GRAPHIC EDITOR endart. Diabetes mellitus: no Findings: Right ?Pressure [...] disorder documented in this encounter Care Teams Category Director Relationship Specialty Start Date End Date Bobby Das MD PCP - General 10/02/[address] [place] [address] [place] [phone] documented as of this encounter
--- OUTSIDE RECORDS SUMMARY | 2022-08-02 09:53 | XMS_ITS | Encounter Summary ---
:1940 Author Organization [facility] [place] [address] Care Team Providers Name Role Phone Bobby Das MD Primary Care Provider Encounter Details Date Type Department Care Team Description 06/23/2022 Telephone Gastroenterology at [facility] Alan August MD [facility] [place] [address] GASTROENTEROLOGY DEPT [phone] [place], [place] [address] (Wo rk) Social History Tobacco Use Types Packs/Day Years Used Date Former Smoker Cigarettes 0.5 50 Smokeless Tobacco: Never Used Alcohol Use Standard Drinks/Week Comments Yes 44 (1 standard drink = 0.6 oz pure alcoh ol) Sex Assigned at Date Recorded Not on file documented as of this encounter Miscellaneous Notes Telephone Encounter - lAan August MD - 06/23/2022 2:26 AM EDT Images from the original note were not included. [facility] CALL Name: Koko Zamora Date: 06/23/2022 Time: 2:27 AM Referring Location: [facility] Referring Provider: Shahram Urena DC HPI: [...] Collins MD [facility] GASTROENTEROLOGY DEPT [place], [place] [address] ( rk) 09/05/2022 Appointment Cardiology Trinity Reid MD [facility] CARDIOLOGY [place], [place] [address] ( rk) 09/05/2022 Office Visit Cardiology Trinity Reid MD [facility] CARDIOLOGY [place], [place] [address] ([facility]) documented as of this encounter Visit Diagnoses Not on filedocumented in this encounter Care Teams Painter Ordnance Relationship Specialty Start Date End Date Bobby Das MD PCP - General 10/02/[address] [place] [address] [place] [phone] documented as of this encounter
--- OUTSIDE RECORDS SUMMARY | 2022-08-02 09:53 | XMS_ITS | Encounter Summary ---
:1940 Author Organization [facility] [place] [address] Care Team Providers Name Role Phone Bobby Das MD Primary Care Provider Reason for Referral Diagnostic Test (Routine) - Authorized Specialty Diagnoses / Procedures Referred By Contact Refer red To Contact Cardiology Diagnoses HFrEF (heart failure with reduced ejection fraction) Alan Reid MD [facility] Non-Inv Card Lab Procedures [place] [address] [place] [address] Fax: Referral ID Status Reason Start Expiration Visits Visits Date Date Requested Authorized [id number] Authorized Specialty 06/13/2022 06/13/2023 1 1 Service Requested Reason for Visit Consultation (Routine) - Closed Specialty Diagnoses / Procedures Referred By Contact Refer red To Contact Cardiology Diagnoses HFrEF (heart failure with reduced ejection fraction) Paroxysmal atrial fibrillation Post-hospital follow-up, s/p PCI with stenting, heart failure Nasrin Parra PA [facility] Cardiology [address] [facility] [place] [address] [place] [address] Referral ID Status Reason Start Date Expiration Date Visits V isits Requested Authorized [id number] Closed Consult, 05/21/2022 05/21/2023 1 1 Test & Treat Encounter Details Date Type Department Care Team Description 06/13/2022 Office Visit Cardiology at [facility] Alan Reid Coronary artery disease invo lving [place] coronary artery of [place] heart without angina pectoris; [facility] MD Kurt HFrEF (heart failure with reduced ejecti on fraction); Drive [facility] Permanent [place] [address] CARDIOLOGY [phone] [place], [place] [address] Social History Tobacco Use Types [...] included. [facility] [place] [address] CARDIOLOGY OUTPATIENT PROGRESS NOTE PRIMARY CARE PROVIDER: Bobby Das MD REFERRING PROVIDER: Nasrin Parra PROBLEM LIST: Patient Active Problem List Diagnosis ??? Coronary artery disease involving [place] coronary artery of [place] heart without angina pectoris 05/20/22 Cath * [...] valve prolapse) s/p repair Surgery done at [facility] in 2000 ??? Hypertriglyceridemia ??? [...] 3 ??? fluticasone propionate (FLONASE) 50 mcg/actuation [place], Suspension 1 spray by Each Nare route [...] healing well. Markedly diminished left radial pulse. ROLL TRUCKER: Normal mentation. Psych: Appropriate affect. Labs: [...] device therapy possiblyincluding AV node ablation and SENIOR CORPORATE STRATEGY MANAGER-D. Coronary artery disease involving [place] coronary artery of [place] heart without angina pectoris His coronary disease [...] for consideration of AV node ablation and SENIOR CORPORATE STRATEGY MANAGER-D Patient Instructions ??? Your new medication is [...] for consideration of AV node ablation and SENIOR CORPORATE STRATEGY MANAGER-D Assessment & Plan Note - Alan Reid MD - 06/13/2022 10:22 AM EDT Associated Problem(s): Coronary artery disease involving [place] coronary artery of [place] heart without angina pectoris His coronary disease [...] device therapy possiblyincluding AV node ablation and SENIOR CORPORATE STRATEGY MANAGER-D. documented in this encounter Plan of Treatment Upcoming Encounters Date Type Specialty Care Team Description 08/08/2022 Office Visit Gastroenterology Negra Collins MD [facility] DR GASTROENTEROLOGY DEPT [place], [place] [address] (Wo rk) 09/05/2022 Appointment Cardiology Trinity Reid MD [facility] CARDIOLOGY [place], [place] [address] (Wo rk) 09/05/2022 Office Visit Cardiology Trinity Reid MD [facility] CARDIOLOGY [place], [place] [address] (Wo rk) Scheduled Orders Name Type Priority Associated Order Schedule Diagnoses Echocardiogram Echocardiography Routine HFrEF (heart Expected: Transthoracic failure with 08/13/2022, reduced ejection Expires: fraction) 02/12/2023 documented as of this encounter Visit Diagnoses Diagnosis Coronary artery disease involving [place] coronary artery of [place] heart without angina pectoris HFrEF (heart failure with reduced ejecti on fraction) Permanent atrial fibrillation Atrial fibrillation documented in this encounter Care Teams Pre Sales Network Engineer Relationship Specialty Start Date End Date Bobby Das MD PCP - General 10/02/[address] [place] [address] [place] [phone] documented as of this encounter
--- OUTSIDE RECORDS SUMMARY | 2022-08-02 09:53 | XMS_ITS | Encounter Summary ---
:1940 Author Organization [place] [address] Care Team Providers Name Role Phone Bobby Das MD Primary Care Provider Encounter Details Date Type Department Care Team Description 06/25/2022 Hospital Encounter Gastroenterology at [facility] [place] Giovani Ponce, [facility] [place] [address] [facility] [phone] [place] [address] Social History Tobacco [...] the day after the procedure, use an aqxe-pef-wxpcbjj spray to numb your throat. Sucking on [...] occurs, please contact your Doctor. Please call [phone] before 8pm Mon-Fri with problems, questions or concerns. If you call after 8pm or on weekends, call the Hospital at [phone] and ask to speak to the Neonatal Pediatric Nurse education program specialist and the vegetable washing machine operator will contact that person for you. When should you call for help? Call [phone] anytime you think you may need emergency [...] any problems. Where can you learn more? [facility] View your After Visit Summary and more online at [email or web address] If you would like to provide feedback about your hospital experience, please call the Office of Patient and Family Relations at . If you have received this After Visit Summary in error, please immediately return it in person to the department, or notify the [facility] Privacy Office by calling toll free at between the hours of 8AM and 5PM to arrange for our retrieval of the documents at no cost to you. Content Version: 12.2 ?? 3116-8884 [employer]. Care instructions adapted under license by [facility]. If you have questions about a medical condition or this instruction, always ask your healthcare professional. [employer] disclaims any warranty or liability for your [...] occurs, please contact your Doctor. Please call [phone] before 8pm Mon-Fri with problems, questions or concerns. If you call after 8pm or on weekends, call the Hospital at [phone] and ask to speak to the Neonatal Pediatric Nurse education program specialist and the vegetable washing machine operator will contact that person for you. When should you call for help? Call 180 anytime you think you may need emergency [...] any problems. Where can you learn more? [facility] View your After Visit Summary and more online at [email or web address] If you would like to provide feedback about your hospital experience, please call the Office of Patient and Family Relations at . If you have received this After Visit Summary in error, please immediately return it in person to the department, or notify the [facility] Privacy Office by calling toll free at between the hours of 8AM and 5PM to arrange for our retrieval of the documents at no cost to you. Content Version: 12.2 ?? 7277-0226 [employer]. Care instructions adapted under license by [facility]. If you have questions about a medical condition or this instruction, always ask your healthcare professional. [employer] disclaims any warranty or liability for [...] 21 (FLONASE) 50 mcg/actuation Nare route daily [place], Suspension as needed. fluorouraciL (EFUDEX) 5 % [...] ischemia I99.8 ??? Coronary artery disease involving nondalton coronary artery of nondalton heart without angina [id number] ??? HFrEF (heart failure with reduced ejection [...] MD [facility] GASTROENTEROLOGY DEPT [place], [place] [address] (Wo rk) 09/05/2022 Appointment Cardiology Trinity Reid MD [facility] CARDIOLOGY [place], [place] [address] (Wo rk) 09/05/2022 Office Visit Cardiology Trinity Reid MD [facility] ER DR CARDIOLOGY [place] [address] (Wo rk) documented [...] Component Value Ref Test Analysis Performed At [facility] Range Method Time Signature UPPER GI [facility] ENDOSCOPY Endoscopy Procedure Date: 06/25/2022 10:33 AM ? Patient Name: Koko Zamora ? Date of : 1940 ? Age: 81 ? Order #: [id number] ? Instrument Name: [id number]- [id number] ? Procedure: ? Upper GI endoscopy Indications: ? Recent gastrointestinal bleeding Providers: ? Giovani Ponce, Isi puente, ? Brissa Vee RN, Juvenal ? Confalone Referring MD: ?[facility] ? Propofol per Anesthesia Complications: [...] Endoscope w as ? [facility], and ? advanced to the second [...] Ref Test Analysis Performed At [facility] Method Time Signature COLONOSCOPY [facility] Endoscopy Procedure Date: 06/25/2022 10:33 AM ? Patient Name: Koko Zamora ? Date of : 1940 ? Age: 81 ? Order #: [id number] ? Instrument Name: [id number]- [id number] ? Procedure: ? Colonoscopy Indications: ? Gastrointestinal [...] Procedure Code(s): ? --- Professional --- ? 91159, Colonoscopy, flexib le; with ? control of [...] of sigmoid ? colon CPT copyright 202 [employer]. All rights reserved. The codes documented in this report are preliminary and upon social work assistant review may be revised to meet [...] Procedure) documented in this encounter Care Teams Cook Fruit Relationship Specialty Start Date End Date Bobby Das MD PCP - General 10/02/[address] [place] [address] [place] [id number] documented as of this encounter
--- OUTSIDE RECORDS SUMMARY | 2022-08-02 09:53 | XMS_ITS | Encounter Summary ---
:1940 [place] [address] Care Team Providers Name Role Phone Bobby Das MD Primary Care Provider Encounter Details Date Type Department Care Team Description 06/13/2022 Office Visit Vascular Surgery at [facility] Fito Summers MD Limb ischemia [facility] [place] [address] VASCULAR SURGERY [phone] [place] [id number] (Wo rk) Social History Tobacco Use Types [...] repair Overview Note: Surgery done at [facility] in 2000 ??? Hypertriglyceridemia Overview Note: ??? [...] with ABIs. Fito Summers MD Vascular Surgery [facility] Emily Power CMA - 06/13/2022 8:00 AM EDT Handwashing performed, gloves on.As instructed by windy removed on LLE medial and lateral aspect, cleansed after staple remover, steri strips applied. Gloves off, handwashing performed. documented in this encounter Plan of Treatment Upcoming Encounters Date Type Specialty Care Team Description 08/08/2022 Office Visit Gastroenterology Negra Collins MD [facility] GASTROENTEROLOGY DEPT [place], [place] [address] (Wo rk) 09/05/2022 Appointment Cardiology Trinity Reid MD [facility] [address] [place], [place] [address] (Wo rk) 09/05/2022 Office Visit Cardiology Trinity Reid MD [facility] [address] [place], [place] [address] (Wo rk) documented as of this encounter Visit Diagnoses Diagnosis Limb ischemia Unspecified circulatory system disorder documented in this encounter Care Teams Glass Artist Relationship Specialty Start Date End Date Bobby Das MD PCP - General 10/02/[address] [place] [address] [place] [address] documented as of this encounter
--- OUTSIDE RECORDS SUMMARY | 2022-08-02 09:53 | XMS_ITS | Encounter Summary ---
:1940 Author Organization [facility] [place] [address] Care Team Providers Name Role Phone Bobby Das MD Primary Care Provider Encounter Details Date Type Department Care Team Description 06/19/2022 Telephone Cardiology [place] [facility] Jimenez[facility] [place] [address] Social History Tobacco Use Types Packs/Day [...] MD [facility] GASTROENTEROLOGY DEPT [place], [place] [address] (Wo rk) 09/05/2022 Appointment Cardiology Trinity Reid MD [facility] CARDIOLOGY [place], [place] [address] (Wo rk) 09/05/2022 Office Visit Cardiology Trinity Reid MD [facility] CARDIOLOGY [place], [place] [address] (Wo rk) documented as of this encounter Visit Diagnoses Not on filedocumented in this encounter Care Teams Refuse Collector Supervisor Relationship Specialty Start Date End Date Bobby Das MD PCP - General 10/02/[address] [place] [address] [place] [address] documented as of this encounter
--- OUTSIDE RECORDS SUMMARY | 2022-08-02 09:54 | XMS_ITS | Encounter Summary ---
:1940 Author Organization [facility] [place] [address] Care Team Providers Name Role Phone Bobby Das MD Primary Care Provider Reason for Visit Reason Comments Dizziness Auth/Cert Specialty Diagnoses / Procedures Referred By Contact Refer red To Contact Diagnoses GIB (gastrointestinal bleeding) Abe [facility] [place] [address] Referral ID Status Reason Start Date Expiration Date Visits Requ ested Visits Authorized [id number] 1 1 Encounter Details Date Type Department Care Team Description 05/31/2022 Surgery Gastroenterology at [facility] Giovani Ponce, EGD, UPPER GI [facility] Bobby gilliland [place] [address] [facility] [phone] [address] [place] [address] Social History Tobacco Use Types Packs/Day [...] switching to a different bloodthinner with the piano and organ refinisher outpatient. Call your doctor or seek medical [...] switchingto a different blood thinner with your piano and organ refinisher as an outpatient Stopped Medications - Aspirin - Valsartan - Speak with your piano and organ refinisher about the timing of restarting this Follow-up Appointments Future Appointments Date Time Provider Department Center 06/10/2022 11:00 AM Loretta Cohen MD [facility] 06/13/2022 7:30 AM Edson [place] [facility] VAS LAB [facility] 06/13/2022 8:00 AM Fito Summers MD [facility] V SURG [facility] 06/13/2022 10:00 AM Alan Reid MD [facility] CARD [address] [place] [address] Your Inpatient Medical Team at [facility] Name(s) of your inpatient provider(s): Dr. John Ames For questions regarding issues relating to your hospitalization on the Hospital Medicine Service, please contact your inpatient physician through the [facility] Last Model Department Supervisor [phone]. Issues after hours and on weekends will be handled by the Hospitalist staff on-call. Your Primary Care Provider Bobby Das MD [phone] Future Appointments and Orders Future Appointments and Orders Future Appointments Provider Department Dept Phone 06/10/2022 11:00 AM Loretta Cohen MD Dermatology at [facility] Arrive at: Command And Control Specialist [address] [place] [phone] 06/13/2022 7:30 AM Edson [place] Vascular Lab at [facility] Arrive at: Command And Control Specialist Area 06/13/2022 8:00 AM Fito Summers MD Vascular Surgery at [facility] Arrive at: Command And Control Specialist Area 06/13/2022 10:00 AM Alan Reid MD Cardiology at [facility] Arrive at: Command And Control Specialist Area 4A [phone] For questions regarding this document or issues relating to this hospitalization on the Medical Service, please contact your inpatient physician through the [facility] Last Model Department Supervisor . Issues after hours and on [...] switching to a different bloodthinner with the piano and organ refinisher outpatient. Call your doctor or seek medical [...] switchingto a different blood thinner with your piano and organ refinisher as an outpatient Stopped Medications - Aspirin - Valsartan - Speak with your piano and organ refinisher about the timing of restarting this Follow-up Appointments Future Appointments Date Time Provider Department Center 06/10/2022 11:00 AM Loretta Cohen MD [facility] 06/13/2022 7:30 AM Edson [place] [facility] VAS LAB ILDA POWE[place] 06/13/2022 8:00 AM Fito Summers MD [facility] V SURG [facility] 06/13/2022 10:00 AM Alan Reid MD [facility] CARD 4A [facility] Your Inpatient Medical Team at [facility] Name(s) of your inpatient provider(s): Dr. John Ames For questions regarding issues relating to your hospitalization on the Hospital Medicine Service, please contact your inpatient physician through the [facility] Last Model Department Supervisor [phone]. Issues after hours and on weekends will be handled by the Hospitalist staff on-call. Your Primary Care Provider Bobby Das MD [phone] documented in this encounter Medications at Time [...] 04/12/20 21 (FLONASE) 50 mcg/actuation Nare route Ryan, Suspension daily as needed. fluorouraciL (EFUDEX) 5 [...] spent >30 minutes (Day of Discharge Code 32446) involved in the final examination of the [...] the original note were not included. [facility] Medicine Progress Note [place] Team - Pager #[phone] Admit Date: 05/31/2022 Name: Koko Zamora : [...] Kurt Ames MD Internal Medicine, PGY-1 Medicine [place] Team #[id number] Associated attestation - John Jolley MD - 06/01/2022 5:02 PM EDT [facility] Medicine -- Attending Progress Note Please see Dr. Amse's note for details of the patient history [...] the original note were not included. [facility] Medicine (#[id number]) History and Physical Patient info: Name: Koko Zamora : 1940 PCP: Bobby Das MD PCP phone number: [phone] Date of Admission: 05/31/2022 ( Hospital Day [...] MD at [facility] MAIN OR No family history on [...] 11 ??? fluticasone propionate (FLONASE) 50 mcg/actuation Ryan, Suspension as needed. ??? fluorouraciL (EFUDEX) 5 [...] Gas) No results found for: PHART, PO2ART, UXK6BGZ, GSS6DMI Microbiology: N/A Pertinent radiology/diagnostic studies: Recent prior [...] Full Arpita Valle MD, PGY-3 05/31/2022 [facility] Medicine # [id number] Attending Staff [...] 05/31/2022 3:58 PM EDT [facility] for soft BPs. Upon arrival [...] 10:50 AM EDT Pt brought to by construction trades teacher Brittany Ramirez MD - 05/31/2022 10:40 [...] LEFT inguinal region secondary to procedure. No abrrett hematoma. Thank you for letting us participate in the care of this patient. If you are a health care provider and have any questions regarding this report, please contact the number below. For patients who have questions please contact the health childcare teacher that requested your imaging first. Electronically signed by: Jl Zuluaga MD, [facility] ([phone]), at 05/31/2022 2:39 PM XR Chest PA [...] have questions please contact the health childcare teacher that requested your imaging first. Electronically signed by: Alan Brink MD, [facility] ([phone]), at 05/31/2022 11:33 AM ED Course as [...] recommendations from Brittany Tavares MD Resident 05/31/22 [id number] Associated attestation - Regina Hinds MD - [...] soft blood pressures, MD made aware. LBM DESKTOP SUPPORT TECHNICIAN. 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 Patient reported blurry/hazy [...] [place] [address] INPATIENT CARDIOLOGY CONSULT NOTE Date of Consultation: 06/01/2022 Admit Date: 05/31/2022 Place of Service: IS86/IS86-A Referring Attending: REGINA HINDS COLEMAN W FRIEDMAN, HARLEY P Responsible Document Advisor: Dr. Rizo Hospital Day 1 day Reason for Consult: Antiplatelet/anticoagulation s/p pci and afib, with GI bleed HPI: Koko Zamora is a 81 y.o. male with a cardiac history significant for remote mitral valve repair (2000), pre-DM, HLD, significant alcohol use, tobacco use, Afib on xarelto, ischemic systolic heartfailure (recent [facility] 05/20/2022 with 2V disease OM1 and distal RCA, had ostial LCX and LCx stent) who presented to [facility] on 05/31/2022 for GI bleed. Patient presented [...] MD at [facility] MAIN OR ALLERGIES: Allergies Allergen Reactions [...] time ??? fluticasone propionate (FLONASE) 50 mcg/actuation Ryan, Suspension 1 spray by Each Nare route [...] from 05/31/2022 in Intermediate Special Care Unit [facility] ED to Hosp-Admission (Discharged) from 05/15/2022 in Intermediate Cardiac Care Unit [facility] Weight 77.1 kg (170 lb) [...] 3.5 guiding catheter and a 3.5 Fr [place] [facility] [address] 20 Mhz. Imaging was successful. Image [...] A premounted 2.75 x 30 mm Rudy Morris (AMPARO) was deployed with a maximum inflation [...] may require modification of this regimen. Consult [facility] Interventional Cardiology for questions. The 1 year [...] Hb drop. Unknown source. has had a [facility] with stent placed and revascularization [...] have questions please contact the health childcare teacher that requested your imaging first. Electronically signed by: Jl Zuluaga MD, [facility] ([phone]), at 05/31/2022 2:39 PM [facility] 48 Hrs-15 [...] have questions please contact the health childcare teacher that requested your imaging first. Electronically signed by: Alan Brink MD, [facility] ([phone]), at 05/31/2022 11:33 AM LABS Recent Labs [...] on xarelto, ischemic systolic heart failure (recent [facility] 05/20/2022 with 2V disease OM1 and distal RCA, had ostial LCX and LCx stent), recent admission for acutelimb ischemia LLE, where he had left common femoral transverse arteriotomy and primary repair, thromboembolectomy of the SFA, profunda and common femoral artery with 4 compartment fasciotomies, who presented to [facility] on 05/31/2022 for GI bleed. Cardiology consulted [...] attestation for additional insight. Rossy Anaya MD [facility] Industrial Paramedic, PGY-5 Inpatient Cardiology Consults Pager #[phone] Please check Qgenda for on-call cardiology consults [...] A&Ox 4. On room air. VSS. LBM: DESKTOP SUPPORT TECHNICIAN. Adequate urine output, urinal at bedside, flomax [...] surrogate would be surrogate decision maker per [place] surrogate decision making law. (Only good for 180 days) Any patient receiving care in [place] must abide by [place] law. The hierarchy [...] (i) The agent with financial power of defense attorney or a conservator appointed in [...] walker - rolling Home Address confirmed as: [address] [place] [id number] Social & Family Supports: All names listed below confirmed with patient as current and correct Extended Emergency Contact Information Primary Emergency Contact: Ursula Zamora Address: [address] [place] [id number] [facility] Relation: Spouse Current Care Provided [...] Type: *No Product type* / Secondary Insurance: [facility] Secondary Insurance? (Only Medicare A&B): Yes ; Prescription Coverage: Yes Preferred Pharmacy: [facility] [place], [place] - [address] [place] [address] [place] [id number] [place] Status: Patient is a : No Primary Care Provider: Bobby Das MD [phone] Patient/Caregiver Goals of Treatment: Patient plans to [...] with transition of care planning. ASH Garcia Crab Catcher [facility] Medicine/ Medical Specialties Pager- [phone] [...] Operative Note Patient Name: Koko Zamora : [id number] MR#: [id number] Case Date: 05/31/2022 Surgeon: Surgeon(s) and Role: [...] yrs ago was normal. He lives in [facility]. Currently light-headedness is improved. No fevers, [...] MD at [facility] MAIN OR SOCIAL HX: Social History [...] sounds, tympanic to percussion RECTAL: performed with laceworker present, no overt masses, fissures, external hemorrhoids, [...] have questions please contact the health childcare teacher that requested your imaging first. Electronically signed by: Alan Brink MD, [facility] ([phone]), at 05/31/2022 11:[address] Abdomen & [...] MD [facility] GASTROENTEROLOGY DEPT [place], [place] [address] (Wo rk) 09/05/2022 Appointment Cardiology Trinity Reid MD [facility] CARDIOLOGY [place], [place] [address] (Wo rk) 09/05/2022 Office Visit Cardiology Trinity Reid MD [facility] CARDIOLOGY [place], [place] [address] (Wo [...] P athologist Signature Neutrophils % 61.3 % [facility] LABORATORY Neutr Abs (ANC) 4.44 1.70 - [facility] 6.10 [facility] x10(3)/[facility] LABORATORY Lymphocytes % 25.2 % [facility] LABORATORY Lymphocytes Abs 1.8 0.9 - 3.2 [facility] x10(3)/[facility] LABORATORY Monocytes % 10.0 % [facility] LABORATORY Monocyte Abs 0.7 0.3 - 0.9 [facility] x10(3)/[facility] LABORATORY Eosinophils % 2.1 % [facility] LABORATORY Eosinophils Abs 0.2 0.0 - 0.4 [facility] x10(3)/[facility] LABORATORY Basophils % 0.7 % [facility] LABORATORY Basophils Abs 0.0 0.0 - 0.1 [facility] x10(3)/[facility] LABORATORY Immature Gran % 0.70 % [facility]ORY Comment: Immature granulocytes(IG's)percentage an d [...] Organization Address City/State/ZIP [place] [address] (ABNORMAL) Hemogram (06/02/2022 8:20 AM EDT) Analysis Performed At Patho logist Time Signature WBC 7.2 4.0 - 9.5 [facility] x10(3)/[facility] LABORATORY RBC 2.74 (L) 4.58 - [facility] 5.54 [facility] x10(6)/[facility] LABORATORY Hemoglobin 8.7 (L) 13.7 - [place] XIAO 16.5 g/dL [facility] LABORATORY Hematocrit 25.7 (L) 40.5 - [place] 48.5 % [facility] LABORATORY MCV 93.8 (H) 82.9 - [place] 93.1 [facility] LABORATORY MCH 31.8 27.5 - [place] 32.1 pg [facility] LABORATORY MCHC 33.9 32.0 - [place] 35.7 g/dL [facility] LABORATORY Platelets 260 145 - 357 [facility] x10(3)/[facility] LABORATORY RDWSD 51.0 (H) 36.0 - [place] 45.0 [facility] LABORATORY RDWCV 14.9 (H) 11.4 - [facility] XIAO 13.8 % [facility] LABORATORY MPV 10.0 7.6 - 12.9 [facility] LABORATORY nRBC % Auto 0.0 % [facility] LABORATORY nRBC Abs Auto 0.000 0.000 - [facility] X[place] 0.000 [facility] x10(3)/[facility] LABORATORY Specimen Anatomical Collection Method Collection Time Receive d Time (Source) Location / / Volume Laterality Blood 06/02/2022 8:20 AM 8:25 EDT AM EDT Resulting Agency Comment Spec In Lab Kurt Ames MD HEMATOLOGY ORDERABLES Performing Organization Address City/State/ZIP [place] [address] Heparin (unfractionated) Level (06/02/2022 6:30 AM EDT) P athologist Signature Heparin UFH 0.39 IU/mL [facility] LABORATORY Comment: [...] Victor MD HEMATOLOGY ORDERABLES Performing Organization Address City/[facility]/ZIP Code Phon e Number [address] Heparin (unfractionated) Level (06/02/2022 12:30 AM EDT) athologist Signature Heparin UFH 0.81 IU/mL [facility] LABORATORY Comment: [...] Victor MD HEMATOLOGY ORDERABLES Performing Organization Address City/[facility]/[place]IP [place] [address] Magnesium (06/02/2022 12:30 AM EDT) P athologist Signature Magnesium 0.83 0.69 - 1.07 [facility] mmol/L [facility] LABORATORY Specimen Anatomical Collection Method Collection Time Receive d Time (Source) Location / / Volume Laterality Blood 06/02/2022 12:30 06/02/2022 AM EDT 12:40 AM EDT Resulting Agency Comment Spec In Lab Mahendra Victor MD CHEMISTRY ORDERABLES Performing Organization Address City/State/ZIP [place] [address] (ABNORMAL) Basic Metabolic Panel (non-fasting) (06/02/2022 12:30 AM EDT) P athologist Signature Glucose Lvl 151 65 - 199 [facility] mg/dL [facility] LABORATORY Comment: Diabetes: >=200 mg/dL plus symp toms BUN 12 10 - 20 mg/dL [facility] LABORATORY Creatinine 0.71 (L) 0.80 - 1.50 mg/dL [facility] LABORATORY Sodium 142 135 - 145 mmol/L [facility] LABORATORY Potassium 3.8 3.5 - 5.0 mmol/L [facility] LABORATORY Comment: Please note: ??Patients with WBC >100,00 0 may have falsely elevated Potassium levels. ??For accurate Potassium quantif ication in these patients send serum separator tube (gold top) for subsequent determinations. ??Contact the Clinical Chemistry Laboratory if there are any qu estions. Chloride 108 (H) 98 - 107 mmol/L [facility] LABORATORY CO2 24 22 - 31 mmol/L [facility] LABORATORY Anion Gap 10 5 - 15 mmol/L [facility] LABORATORY Calcium 8.1 (L) 8.5 - 10.5 mg/dL [facility] LABORATORY Estimated GFR 93 >=60 mL/min/1.73 m?? [facility] LAB[facility] Comment: This patient's estimated GFR [...] Organization Address City/State/ZIP [place] [address] (ABNORMAL) Differential, Automated (06/01/2022 7:29 PM EDT) athologist Signature Neutrophils % 68.8 % [facility] LABORATORY Neutr Abs (ANC) 5.34 1.70 - [facility] 6.10 [facility] x10(3)/[facility] LABORATORY Lymphocytes % 19.6 % [facility] LABORATORY Lymphocytes Abs 1.5 0.9 - 3.2 [facility] x10(3)/[facility] LABORATORY Monocytes % 8.1 % [facility] LABORATORY Monocyte Abs 0.6 0.3 - 0.9 [facility] x10(3)/[facility] LABORATORY Eosinophils % 1.8 % [facility] LABORATORY Eosinophils Abs 0.1 0.0 - 0.4 [facility] x10(3)/[facility] LABORATORY Basophils % 0.8 % [facility] LABORATORY Basophils Abs 0.1 0.0 - 0.1 [facility] x10(3)/[facility] LABORATORY Immature Gran % 0.90 % [facility] LABORATORY Comment: Immature granulocytes(IG's)percentage an d [...] Organization Address City/State/[place] [address] (ABNORMAL) Hemogram (06/01/2022 7:29 PM EDT) Analysis Performed At Patho logist Time Signature WBC 7.8 4.0 - 9.5 [facility] LABORATORY RBC 2.65 (L) 4.58 - [facility] X[place] 5.54 [facility] x10(6)/[facility] LABORATORY Hemoglobin 8.3 (L) 13.7 - [facility] 16.5 g/dL [facility] LABORATORY Hematocrit 24.8 (L) 40.5 - [facility] 48.5 % [facility] LABORATORY MCV 93.6 (H) 82.9 - [facility] 93.1 [facility] LABORATORY MCH 31.3 27.5 - [place] 32.1 pg [facility] LABORATORY MCHC 33.5 32.0 - [place] 35.7 g/dL [facility] LABORATORY Platelets 263 145 - 357 [facility] x10(3)/[facility] LABORATORY RDWSD 52.8 (H) 36.0 - [facility] [place] 45.0 [facility] LABORATORY RDWCV 15.4 (H) 11.4 - [facility] XIAO 13.8 % [facility] LABORATORY MPV 10.4 7.6 - 12.9 [facility] nRBC % Auto 0.0 % [facility] LABORATORY nRBC Abs Auto 0.000 0.000 - [facility] XIA[place] 0.000 [facility] x10(3)/[facility] LABORATORY Specimen Anatomical Collection Method Collection Time Receive d Time (Source) Location / / Volume Laterality Blood 06/01/2022 7:29 PM 2 7:29 EDT PM EDT Resulting Agency Comment Spec In Lab Kurt Ames MD HEMATOLOGY ORDERABLES Performing Organization Address City/State/ZIP Code Phon e Number [address] Heparin (unfractionated) Level (06/01/2022 7:29 PM EDT) P athologist Signature Heparin UFH 0.81 IU/mL [facility] LABORATORY Comment: [...] Organization Address City/State/ZIP Code Phon e Number [address] (ABNORMAL) Heparin (unfractionated) Level (06/01/2022 11:32 AM EDT) Patholo gist Method Time Signature Heparin UFH 1.05 IU/mL [facility] (Critical) [facility] LABORATORY Comment: Critical Result called [...] Organization Address City/State/ZIP [place] [address] (ABNORMAL) Differential, Automated (06/01/2022 5:56 AM EDT) [facility] Method Time Signature Neutrophils % 62.7 % [facility] LABORATORY Neutr Abs (ANC) 6.11 (H) 1.70 - [facility] 6.10 [facility] x10(3)/[facility] LABORATORY Lymphocytes % 23.5 % [facility] LABORATORY Lymphocytes Abs 2.3 0.9 - 3.2 [facility] x10(3)/[facility] LABORATORY Monocytes % 10.0 % [facility] LABORATORY Monocyte Abs 1.0 (H) 0.3 - 0.9 [facility] x10(3)/[facility] LABORATORY Eosinophils % 2.2 % [facility] LABORATORY Eosinophils Abs 0.2 0.0 - 0.4 [facility] x10(3)/[facility] LABORATORY Basophils % 0.9 % [facility] LABORATORY Basophils Abs 0.1 0.0 - 0.1 [facility] x10(3)/[facility] LABORATORY Immature Gran % 0.70 % [facility] LABORATORY Comment: Immature granulocytes(IG's)percentage an d [...] Organization Address City/State/ZIP [place] [address] (ABNORMAL) Hemogram (06/01/2022 5:56 AM EDT) Analysis Performed At Patho logist Time Signature WBC 9.7 (H) 4.0 - 9.5 [facility] x10(3)/[facility] LABORATORY RBC 2.83 (L) 4.58 - [facility] 5.54 [facility] x10(6)/[facility] LABORATORY Hemoglobin 9.0 (L) 13.7 - [facility] 16.5 g/dL [facility] LABORATORY Hematocrit 26.7 (L) 40.5 - [facility] 48.5 % [facility] LABORATORY MCV 94.3 (H) 82.9 - [facility] 93.1 [facility] LABORATORY MCH 31.8 27.5 - [facility] 32.1 pg [facility] LABORATORY MCHC 33.7 32.0 - [facility] 35.7 g/dL [facility] LABORATORY Platelets 250 145 - 357 [facility] x10(3)/[facility] LABORATORY RDWSD 54.3 (H) 36.0 - [facility] XIAO 45.0 [facility] LABORATORY RDWCV 15.9 (H) 11.4 - [facility] XIAO 13.8 % [facility] LABORATORY MPV 10.5 7.6 - 12.9 [facility] LABORATORY nRBC % Auto 0.0 % [facility] LABORATORY nRBC Abs Auto 0.000 0.000 - [facility] XIAO 0.000 [facility] x10(3)/[facility] LABORATORY Specimen Anatomical Collection Method Collection Time Receive d Time (Source) Location / / Volume Laterality Blood 06/01/2022 5:56 AM 2 6:05 EDT AM EDT Resulting Agency Comment Spec In Lab Arpita Valle MD HEMATOLOGY ORDERABLES Performing Organization Address City/State/[place] [address] Heparin (unfractionated) Level (06/01/2022 4:30 AM EDT) P athologist Signature Heparin UFH 0.68 IU/mL [facility] LABORATORY Comment: [...] Victor MD HEMATOLOGY ORDERABLES Performing Organization Address City/[facility]/[place] [address] (ABNORMAL) Urinalysis with reflex Culture (06/01/2022 4:00 AM EDT) Patholo gist Method Time Signature Glucose UA 500 Negative [facility] (Critical) mg/dL [facility] LABORATORY Comment: Urinalysis result NOT critical without a combination of Glucose greater than or equal to 500 mg/dL AND Ketones greate r than or equal to 80 mg/dL Protein UA Negative Negative mg/dL [facility] LABORATORY Bilirubin UA Negative Negative mg/dL [facility] [...] [facility]PITAL LABORATORY Blood UA Negative Negative mg/dL [facility] Ketones UA Negative Negative mg/dL [facility] Nitrite UA Negative Negative [facility] LABORATORY Leukocytes UA Negative Negative [facility] LABORATORY Appearance UA Clear Clear [facility] LABORATORY Spec Conger UA >=1.030 (A) 1.005 - 1.030 [facility] LABORATORY Color UA Yellow Yellow [facility] LABORATORY Culture Reflexed No [facility] LABORATORY Specimen Anatomical Collection Method Collection Time Receive d Time (Source) Location / / Volume Laterality Clean Catch 06/01/2022 4:00 AM 2 4:26 Urine EDT AM EDT Resulting Agency Comment Spec In Lab Mahendra Victor MD URINE ORDERABLES Performing Organization Address City/[facility]/ZIP Code Phon e Number [address] Magnesium (06/01/2022 1:00 AM EDT) athologist Signature Magnesium 0.93 0.69 - 1.07 [facility] mmol/L [facility] LABORATORY Specimen Anatomical Collection Method Collection Time Receive d Time (Source) Location / / Volume Laterality Blood 06/01/2022 1:00 AM 2 1:37 EDT AM EDT Resulting Agency Comment Spec In Lab Mahendra Victor MD CHEMISTRY ORDERABLES Performing Organization Address City/[facility] Phon e Number [address] (ABNORMAL) Basic Metabolic Panel (non-fasting) (06/01/2022 1:00 AM EDT) athologist Signature Glucose Lvl 148 65 - 199 [facility] mg/dL [facility] LABORATORY Comment: Diabetes: >=200 mg/dL plus symp toms BUN 23 (H) 10 - 20 mg/dL [facility] LABORATORY Creatinine 0.78 (L) 0.80 - 1.50 mg/dL [facility] LABOR[facility]ORY Sodium 141 135 - 145 mmol/L [facility]OR[facility]ORY Potassium 4.0 3.5 - 5.0 mmol/L [facility] LABORATORY Comment: Please note: ??Patients with WBC >100,00 0 may have falsely elevated Potassium levels. ??For accurate Potassium quantif ication in these patients send serum separator tube (gold top) for subsequent determinations. ??Contact the Clinical Chemistry Laboratory if there are any qu estions. Chloride 108 (H) 98 - 107 mmol/L [facility] LABORATORY CO2 24 22 - 31 mmol/L [facility] Anion Gap 9 5 - 15 mmol/L [facility] Calcium 8.6 8.5 - 10.5 mg/dL [facility]OR[facility] Estimated GFR 91 >=60 mL/min/1.73 m?? [facility] Comment: This patient's estimated GFR [...] Organization Address City/State/ZIP [place] [address] (ABNORMAL) Differential, Automated (06/01/2022 12:00 AM EDT) P athologist Signature Neutrophils % 64.6 % [facility] LABORATORY Neutr Abs (ANC) 5.60 1.70 - [facility] 6.10 [facility] x10(3)/[facility] LABORATORY Lymphocytes % 22.4 % [facility] LABORATORY Lymphocytes Abs 1.9 0.9 - 3.2 [facility] x10(3)/[facility] LABORATORY Monocytes % 9.5 % [facility] LABORATORY Monocyte Abs 0.8 0.3 - 0.9 [facility] x10(3)/[facility] LABORATORY Eosinophils % 2.1 % [facility] LABORATORY Eosinophils Abs 0.2 0.0 - 0.4 [facility] x10(3)/[facility] LABORATORY Basophils % 0.6 % [facility] LABORATORY Basophils Abs 0.0 0.0 - 0.1 [facility] x10(3)/[facility] LABORATORY Immature Gran % 0.80 % [facility] LABORATORY Comment: Immature granulocytes(IG's)percentage an d [...] x10(3)/[facility] LABORATORY Specimen (Source) Anatomical Collection Method Collection Time Re ceived Time Location / / Volume Laterality Blood 06/01/2022 06/01/2022 12:1 0 AM EDT Resulting Agency Comment Spec In Lab Arpita Valle MD HEMATOLOGY ORDERABLES Performing Organization Address City/State/ZIP [place] [address] (ABNORMAL) Hemogram (06/01/2022 12:00 AM EDT) Analysis Performed At Patho logist Time Signature WBC 8.7 4.0 - 9.5 [facility] x10(3)/[facility] LABORATORY RBC 2.77 (L) 4.58 - [facility] 5.54 [facility] x10(6)/[facility] LABORATORY Hemoglobin 8.6 (L) 13.7 - [facility] 16.5 g/dL [facility] LABORATORY Hematocrit 25.7 (L) 40.5 - [facility] 48.5 % [facility]ORATORY MCV 92.8 82.9 - [facility] 93.1 [facility] LABORATORY MCH 31.0 27.5 - [facility] 32.1 pg [facility] LABORATORY MCHC 33.5 32.0 - [facility] 35.7 g/dL [facility] LABORATORY Platelets 260 145 - 357 [facility] x10(3)/[facility] LABORATORY RDWSD 51.9 (H) 36.0 - [facility] 45.0 [facility] LABORATORY RDWCV 15.5 (H) 11.4 - [facility] 13.8 % [facility] LABORATORY MPV 10.4 7.6 - 12.9 [facility] LABORATORY nRBC % Auto 0.0 % [facility] LABORATORY nRBC Abs Auto 0.000 0.000 - [facility] 0.000 [facility] x10(3)/[facility] LABORATORY Specimen (Source) Anatomical Collection Method Collection Time Re ceived Time Location / / Volume Laterality Blood 06/01/2022 06/01/2022 12:1 0 AM EDT Resulting Agency Comment Spec In Lab Arpita Valle MD HEMATOLOGY ORDERABLES Performing Organization Address City/State/ZIP [place] [address] (ABNORMAL) Differential, Automated (05/31/2022 9:17 PM EDT) P athologist Signature Neutrophils % 59.6 % [facility] LABORATORY Neutr Abs (ANC) 3.98 1.70 - [facility] 6.10 [facility] x10(3)/[facility] LABORATORY Lymphocytes % 27.5 % [facility] LABORATORY Lymphocytes Abs 1.8 0.9 - 3.2 [facility] x10(3)/[facility] LABORATORY Monocytes % 9.1 % [facility] LABORATORY Monocyte Abs 0.6 0.3 - 0.9 [facility] x10(3)/[facility] LABORATORY Eosinophils % 2.4 % [facility] LABORATORY Eosinophils Abs 0.2 0.0 - 0.4 [facility] x10(3)/[facility] LABORATORY Basophils % 0.7 % [facility] LABORATORY Basophils Abs 0.0 0.0 - 0.1 [facility] x10(3)/[facility] LABORATORY Immature Gran % 0.70 % [facility] LABORATORY Comment: Immature granulocytes(IG's)percentage an d [...] Organization Address City/State/ZIP [place] [address] (ABNORMAL) Hemogram (05/31/2022 9:17 PM EDT) Analysis Performed At Patho logist Time Signature WBC 6.7 4.0 - 9.5 [facility] x10(3)/[facility] LABORATORY RBC 2.74 (L) 4.58 - [facility] 5.54 [facility] x10(6)/[facility] LABORATORY Hemoglobin 8.5 (L) 13.7 - [facility] 16.5 g/dL [facility] LABORATORY Hematocrit 25.7 (L) 40.5 - [facility] 48.5 % [facility] LABORATORY MCV 93.8 (H) 82.9 - [facility] 93.1 fL [facility] LABORATORY MCH 31.0 27.5 - [facility] 32.1 pg [facility] LABORATORY MCHC 33.1 32.0 - [facility] 35.7 g/dL [facility] LABORATORY Platelets 233 145 - 357 [facility] x10(3)/[facility] LABORATORY RDWSD 51.9 (H) 36.0 - [facility] 45.0 [facility] RDWCV 15.3 (H) 11.4 - [facility] XIAO 13.8 % [facility] MPV 10.3 7.6 - 12.9 [facility] XIAO [facility] LABORATORY nRBC % Auto 0.0 % [facility] nRBC Abs Auto 0.000 0.000 - [facility] 0.000 [facility] x10(3)/[facility] LABORATORY Specimen Anatomical Collection Method Collection Time Receive d Time (Source) Location / / Volume Laterality Blood 05/31/2022 9:17 PM 9:25 EDT PM EDT Resulting Agency Comment Spec In Lab Arpita Valle MD HEMATOLOGY ORDERABLES Performing Organization Address City/State/ZIP [place] [address] Transfuse RBC (05/31/2022 7:36 PM EDT) Regina Hinds MD NURSING TREATMENT ORDERABLES - BLOOD ADMIN Transfuse RBC (05/31/2022 7:36 PM EDT) Regina Hinds MD NURSING TREATMENT ORDERABLES - BLOOD ADMIN UPPER GI ENDOSCOPY (05/31/2022 3:37 PM EDT) Component Value Ref Test Analysis Performed At [facility] Range Method Time Signature UPPER GI [facility] PROVATION ENDOSCOPY Endoscopy Procedure Date: 05/31/2022 3:37 PM ? Patient Name: Koko Zamora ? Date of : 1940 ? Age: 81 ? Order #: [id number] ? Instrument Name: [id number] ? Procedure: ? Upper GI endoscopy Indications: [...] Procedure Code(s): ? --- Professional --- ? 81025, Esophagogastroduode noscopy, ? flexible, transoral; with control [...] stomach ? and duodenum CPT copyright 2021 [employer]. All rights reserved. The codes documented in this report are preliminary and upon aquatic habitat biologist review may be revised to meet current [...] have questions please contact the health childcare teacher that requested your imaging first. ? Electronically signed by: Jl walter MD, [facility] ([phone]), at 05/31/2022 2:39 PM Narrative 05/31/2022 2:39 PM EDT EXAMINATION: CT ABDOMEN AND PELVIS WWO CONTRAST (GI BLEED) CLINICAL HISTORY: Significant Hb drop. U nknown source. has had a [facility] with stent placed and revascularization [...] enlarged lymph nodes. Vasculature: Patent common iliac, plant quality manager al iliac, and common femoral arteries [...] enlarged lymph nodes. Vasculature: Patent common iliac, plant quality manager al iliac, and common femoral arteries [...] have questions please contact the health childcare teacher that requested your imaging first. Regina Hinds MD G CT ORDERABLES Type and Screen Validity (05/31/2022 1:43 PM EDT) [facility] gist Method Time Signature T&S only valid [facility] at [facility] LABORATORY Comment: This Type and Screen result is only valid at the [facility] Specimen Anatomical Collection Method Collection Time Receive d Time (Source) Location / / Volume Laterality Blood 05/31/2022 1:43 PM 2 1:57 EDT PM EDT Resulting Agency Comment Spec In Lab Regina Hinds MD BLOOD BANK ORDERABLES Performing Organization Address City/State/ZIP [place] [address] ABORH Recheck Status (05/31/2022 1:43 PM EDT) [facility] Method Time Signature ABORH Type Completed [facility] LABORATORY Specimen Anatomical Collection Method Collection Time Receive d Time (Source) Location / / Volume Laterality Blood 05/31/2022 1:43 PM 2 1:57 EDT PM EDT Resulting Agency Comment Spec In Lab Regina Hinds MD BLOOD BANK ORDERABLES Performing Organization Address City/[facility]/ZIP [place] [address] Antibody screen (05/31/2022 1:43 PM EDT) [facility] Signature Ab Screen Negative [facility] LABORATORY Expires at 06/03/2022 [facility] [id number] on: [facility] LABORATORY Specimen Anatomical Collection Method Collection Time Receive d Time (Source) Location / / Volume Laterality Blood 05/31/2022 1:43 PM 2 1:57 EDT PM EDT Resulting Agency Comment Spec In Lab Regina Hinds MD BLOOD BANK ORDERABLES Performing Organization Address City/[facility]/ZIP [place] [address] ABO/Rh Typing (05/31/2022 1:43 PM EDT) P athologist Signature ABORh Type O Pos [facility] LABORATORY Specimen Anatomical Collection Method Collection Time Receive d Time (Source) Location / / Volume Laterality Blood 05/31/2022 1:43 PM 2 1:57 EDT PM EDT Resulting Agency Comment Spec In Lab Regina Hinds MD BLOOD BANK ORDERABLES Performing Organization Address City/[facility]/ZIP [place] [address] Prepare RBC (05/31/2022 1:35 PM EDT) P athologist Signature Dispensed? Yes [facility] LABORATORY Specimen Anatomical Collection Method Collection Time Receive d Time (Source) Location / / Volume Laterality Blood 05/31/2022 1:35 PM 2 1:30 EDT PM EDT Regina Hinds MD BLOOD BANK ORDERABLES Performing Organization Address City/[facility] [place] [address] Prepare RBC (05/31/2022 1:25 PM EDT) P athologist Signature Dispensed? Yes [facility] LABORATORY Specimen Anatomical Collection Method Collection Time Receive d Time (Source) Location / / Volume Laterality Blood 05/31/2022 1:25 PM 2 1:23 EDT PM EDT Regina Hinds MD BLOOD BANK ORDERABLES Performing Organization Address [facility] Phon e Number [address] (ABNORMAL) Differential, Automated (05/31/2022 12:44 PM EDT) P athologist Signature Neutrophils % 62.0 % [facility] LABORATORY Neutr Abs (ANC) 4.71 1.70 - [facility] 6.10 [facility] x10(3)/[facility] LABORATORY Lymphocytes % 24.1 % [facility] LABORATORY Lymphocytes Abs 1.8 0.9 - 3.2 [facility] x10(3)/[facility] LABORATORY Monocytes % 10.8 % [facility] LABORATORY Monocyte Abs 0.8 0.3 - 0.9 [facility] x10(3)/[facility] LABORATORY Eosinophils % 1.6 % [facility] LABORATORY Eosinophils Abs 0.1 0.0 - 0.4 [facility] x10(3)/[facility] LABORATORY Basophils % 0.7 % [facility] LABORATORY Basophils Abs 0.0 0.0 - 0.1 [facility] x10(3)/[facility] LABORATORY Immature Gran % 0.80 % [facility] LABORATORY Comment: Immature granulocytes(IG's)percentage an d absolute count will include metamyelocytes, myelocytes, and promyelo cytes. Blood smears from CBCs yielding IG's will be scanned manually for concor dance. If this scan disagrees with the automated IG or if promyelocytes are not ed, a manual differential will be performed. Rain Gran Abs 0.06 (H) 0.00 - 0.04 x10(3)/[facility] LABORATORY Specimen Anatomical Collection Method Collection Time Receive d Time (Source) Location / / Volume Laterality Blood 05/31/2022 12:44 05/31/2022 PM EDT 12:57 PM EDT Resulting Agency Comment Spec In Lab Brittany Ramirez MD HEMATOLOGY ORDERABLES Performing Organization Address City/State/ZIP [place] [address] (ABNORMAL) Hemogram (05/31/2022 12:44 PM EDT) Analysis Performed At Patho logist Time Signature WBC 7.6 4.0 - 9.5 [facility] x10(3)/[facility] LABORATORY RBC 2.11 (L) 4.58 - [facility] XIAO 5.54 [facility] x10(6)/[facility] LABORATORY Hemoglobin 6.9 (L) 13.7 - [facility] 16.5 g/dL [facility] LABORATORY Hematocrit 20.8 (L) 40.5 - [facility] XIAO 48.5 % [facility] LABORATORY MCV 98.6 (H) 82.9 - [facility] 93.1 [facility] LABORATORY MCH 32.7 (H) 27.5 - [facility] XIAO 32.1 pg [facility] LABORATORY MCHC 33.2 32.0 - [facility] XIAO 35.7 g/dL [facility] LABORATORY Platelets 255 145 - 357 [facility] x10(3)/[facility] LABORATORY RDWSD 47.7 (H) 36.0 - [facility] XIAO 45.0 [facility] LABORATORY RDWCV 13.4 11.4 - [facility] XIAO 13.8 % [facility] LABORATORY MPV 10.7 7.6 - 12.9 [facility] LABORATORY nRBC % Auto 0.0 % [facility] LABORATORY nRBC Abs Auto 0.000 0.000 - [facility] 0.000 [facility] x10(3)/[facility] LABORATORY Specimen Anatomical Collection Method Collection Time Receive d Time (Source) Location / / Volume Laterality Blood 05/31/2022 12:44 05/31/2022 PM EDT 12:57 PM EDT Resulting Agency Comment Spec In Lab Brittany Ramirez MD HEMATOLOGY ORDERABLES Performing Organization Address City/State/ZIP [place] [address] (ABNORMAL) BLOOD GAS 2 VENOUS (05/31/2022 11:24 AM EDT) P athologist Signature pH [place] 7.38 7.32 - [facility] 7.42 [facility] LABORATORY pCO2 [place] 40 (L) 41 - 51 [facility] LABORATORY pO2 [place] 18 (L) 25 - 40 [facility] LABORATORY HCO3 [place] 23.3 mmol/L [facility] LABORATORY BE [place] -1.8 mmol/L [facility] LABORATORY Hgb Blood Gas 7.0 (L) 13.7 - [facility] 16.5 g/dL [facility] LABORATORY O2HB [place] 24.3 % [facility] LABORATORY COHB [place] 1.4 % [facility] LABORATORY Comment: Nonsmokers: 0.5-1.5% COHB Smokers: [...] Whole Blood 1.19 1.15 - 1.33 mmol/L [facility] LABORATORY Comment: Note: ??Total bilirubin higher [...] [facility] LABOR[facility] BGas Source Venous [facility] LABORATORY Specimen Anatomical Collection Method Collection Time Receive d Time (Source) Location / / Volume Laterality Blood 05/31/2022 11:24 05/31/2022 AM EDT 11:24 AM EDT Regina Hinds MD CHEMISTRY ORDERABLES Performing Organization Address City/[facility]/ZIP Code Phon e Number [address] TSH [place] (05/31/2022 11:20 AM EDT) P athologist Signature TSH 1.67 0.27 - 4.20 [facility] mcIU/mL [facility] LABORATORY Comment: Reference Interval (mcIU/mL): Females: ??First Trimester: 0.23-3.88 ??Second Trimester: 0.22-3.90 ??Third Trimester: 0.44-4.66 Specimen Anatomical Collection Method Collection Time Receive d Time (Source) Location / / Volume Laterality Blood 05/31/2022 11:20 05/31/2022 AM EDT 11:28 AM EDT Resulting Agency Comment Spec In Lab Regina Hinds MD CHEMISTRY ORDERABLES Performing Organization Address City/[facility]/ZIP Code Phon e Number [address] XR Chest PA & [...] have questions please contact the health childcare teacher that requested your imaging first. ? Electronically signed by: Alan strong MD, [facility] ([phone]), at 05/31/2022 11:33 AM Narrative 05/31/2022 11:33 [...] have questions please contact the health childcare teacher that requested your imaging first. Electronically signed by: Alan strong MD, [facility] ([phone]), at 05/31/2022 11:33 AM Regina Hinds MD IMG DX ORDERABLES Lipase (05/31/2022 10:50 AM EDT) athologist Signature Lipase 41 0 - 60 [facility] unit/L [facility] LABORATORY Specimen Anatomical Collection Method Collection Time Receive d Time (Source) Location / / Volume Laterality Blood Venous Draw / 05/31/2022 10:50 05/31/2022 Unknown AM EDT 11:11 AM EDT Resulting Agency Comment Spec In Lab Zain Champion MD CHEMISTRY ORDERABLES Performing Organization Address City/State/ZIP Code Phon e Number [place] [id number]OSP[address] LAB[address]ORY Drive (ABNORMAL) Hepatic Function Panel (05/31/2022 10:50 AM EDT) Analysis Performed At Patho logist Time Signature Total Protein 6.4 6.1 - 8.0 [facility] g/dL [facility] LABORATORY Albumin 4.1 3.2 - 5.2 [facility] g/dL [facility] LABORATORY AST 24 0 - 39 [facility] unit/L [facility] LAB[facility] ALT 44 0 - 55 [facility] unit/L [facility] LABORATORY Alk Phos 63 40 - 130 [facility] unit/L [facility] LABORATORY Total <0.2 (L) 0.2 - 1.3 [facility] Bilirubin mg/dL [facility] LABORATORY Bili, Direct 0.1 0.0 - 0.3 [facility] mg/dL [facility] LABORATORY Specimen Anatomical Collection Method Collection Time Receive d Time (Source) Location / / Volume Laterality Blood Venous Draw / 05/31/2022 10:50 05/31/2022 Unknown AM EDT 11:11 AM EDT Resulting Agency Comment Spec In Lab Zain Champion MD CHEMISTRY ORDERABLES Performing Organization Address City/[facility]/ZIP Code Phon e Number [address] Blue Tube HOLD (05/31/2022 10:50 AM EDT) athologist Signature Blue Hold Sample in [facility] LABORATORY Specimen Anatomical Collection Method Collection Time Receive d Time (Source) Location / / Volume Laterality Blood Venous Draw / 05/31/2022 10:50 05/31/2022 Unknown AM EDT 11:05 AM EDT Brittany Ramirez MD HEMATOLOGY ORDERABLES Performing Organization Address City/[facility]/ZIP Code Phon e Number [address] (ABNORMAL) Differential, Automated (05/31/2022 10:50 AM EDT) athologist Signature Neutrophils % 66.9 % [facility] LABORATORY Neutr Abs (ANC) 5.58 1.70 - [facility] 6.10 [facility] x10(3)/[facility] LABORATORY Lymphocytes % 22.2 % [facility] LABORATORY Lymphocytes Abs 1.8 0.9 - 3.2 [facility] x10(3)/[facility] LABORATORY Monocytes % 7.8 % [facility] LABORATORY Monocyte Abs 0.6 0.3 - 0.9 [facility] x10(3)/[facility] LABORATORY Eosinophils % 1.2 % [facility] LABORATORY Eosinophils Abs 0.1 0.0 - 0.4 [facility] x10(3)/[facility] [facility] LABORATORY Basophils % 0.7 % [facility] LABORATORY Basophils Abs 0.1 0.0 - 0.1 [facility] x10(3)/[facility] LABORATORY Immature Gran % 1.20 % [facility] LABORATORY Comment: Immature granulocytes(IG's)percentage an d absolute count will include metamyelocytes, myelocytes, and promyelo cytes. Blood smears from CBCs yielding IG's will be scanned manually for tracy armstrong. If this scan disagrees with the automated IG or if promyelocytes are not ed, a manual differential will be performed. Rain Gran Abs 0.10 (H) 0.00 - 0.04 x10(3)/[facility] LABORATORY Specimen Anatomical Collection Method Collection Time Receive d Time (Source) Location / / Volume Laterality Blood 05/31/2022 10:50 05/31/2022 AM EDT 11:03 AM EDT Resulting Agency Comment Spec In Lab Birttany Ramirez MD HEMATOLOGY ORDERABLES Performing Organization Address City/State/ZIP [place] [address] (ABNORMAL) Hemogram (05/31/2022 10:50 AM EDT) Analysis Performed At Patho logist Time Signature WBC 8.3 4.0 - 9.5 [facility] x10(3)/[facility] LABORATORY RBC 2.26 (L) 4.58 - [facility] 5.54 [facility] x10(6)/[facility] LABORATORY Hemoglobin 7.4 (L) 13.7 - [facility] 16.5 g/dL [facility] LABORATORY Hematocrit 22.3 (L) 40.5 - [facility] 48.5 % [facility] LABORATORY MCV 98.7 (H) 82.9 - [facility] 93.1 [facility] LABORATORY MCH 32.7 (H) 27.5 - [facility] XIAO 32.1 pg [facility] LABORATORY MCHC 33.2 32.0 - [facility] XIAO 35.7 g/dL [facility] LABORATORY Platelets 283 145 - 357 [facility] x10(3)/[facility] LABORATORY RDWSD 47.0 (H) 36.0 - [facility] XIAO 45.0 [facility] LABORATORY RDWCV 13.4 11.4 - [facility] XIAO 13.8 % [facility] LABORATORY MPV 10.8 7.6 - 12.9 [facility] LABORATORY nRBC % Auto 0.0 % [facility] LABORATORY nRBC Abs Auto 0.000 0.000 - [place] 0.000 [facility] x10(3)/[facility] LABORATORY Specimen Anatomical Collection Method Collection Time Receive d Time (Source) Location / / Volume Laterality Blood 05/31/2022 10:50 05/31/2022 AM EDT 11:03 AM EDT Resulting Agency Comment Spec In Lab Brittany Ramirez MD HEMATOLOGY ORDERABLES Performing Organization Address City/State/ZIP Code Phon e Number [address] Phosphorus (05/31/2022 10:50 AM EDT) P athologist Signature Phosphorus 3.2 2.5 - 4.5 [place] mg/dL [facility] LABORATORY Specimen Anatomical Collection Method Collection Time Receive d Time (Source) Location / / Volume Laterality Blood 05/31/2022 10:50 05/31/2022 AM EDT 11:03 AM EDT Resulting Agency Comment Spec In Lab Regina Hinds MD CHEMISTRY ORDERABLES Performing Organization Address City/State/ZIP Code Phon e Number [address] Magnesium (05/31/2022 10:50 AM EDT) P athologist Signature Magnesium 0.93 0.69 - 1.07 [place] mmol/L [facility] LABORATORY Specimen Anatomical Collection Method Collection Time Receive d Time (Source) Location / / Volume Laterality Blood 05/31/2022 10:50 05/31/2022 AM EDT 11:03 AM EDT Resulting Agency Comment Spec In Lab Regina Hinds MD CHEMISTRY ORDERABLES Performing Organization Address City/State/[place] [address] (ABNORMAL) pro-Brain Natriuretic Peptide (05/31/2022 10:50 AM EDT) P athologist Signature ProBNP 1,077 (H) <=449 [place] pg/mL [facility] LABORATORY Specimen Anatomical Collection Method Collection Time Receive d Time (Source) Location / / Volume Laterality Blood 05/31/2022 10:50 05/31/2022 AM EDT 11:03 AM EDT Resulting Agency Comment Spec In Lab Regnia Hinds MD CHEMISTRY ORDERABLES Performing Organization Address City/[facility]/[place]IP [place] [address] Troponin (05/31/2022 10:50 AM EDT) athologist Signature Troponin-T <0.01 0.00 - 0.00 [facility] ng/mL [facility] LABORATORY Comment: [...] additional sample may be indicated. Reference: Third [place] Definition of Myocardial Infarction. Journal of the [place] College [employer] Cardiology 2012;60:1581-98 Specimen Anatomical Collection Method Collection Time Receive d Time (Source) Location / / Volume Laterality Blood 05/31/2022 10:50 05/31/2022 AM EDT 11:03 AM EDT Resulting Agency Comment Spec In Lab Regina Hinds MD CHEMISTRY ORDERABLES Performing Organization Address City/[facility]/[place] [address] (ABNORMAL) Basic Metabolic Panel (non-fasting) (05/31/2022 10:50 AM EDT) athologist Signature Glucose Lvl 223 (H) 65 - 199 [facility] mg/dL [facility] LABORATORY Comment: Diabetes: >=200 mg/dL plus symp toms BUN 39 (H) 10 - 20 mg/dL [facility] LABORATORY Creatinine 0.91 0.80 - 1.50 mg/dL [facility] LABORATORY Sodium 140 135 - 145 mmol/L [facility] LABORATORY Potassium 4.1 3.5 - 5.0 mmol/L [facility] LABORATORY Comment: Please note: ??Patients with WBC >100,00 0 may have falsely elevated Potassium levels. ??For accurate Potassium quantif ication in these patients send serum separator tube (gold top) for subsequent determinations. ??Contact the Clinical Chemistry Laboratory if there are any qu estions. Chloride 107 98 - 107 mmol/L [facility] LABORATORY CO2 23 22 - 31 mmol/L [facility] LABORATORY Anion Gap 10 5 - 15 mmol/L [facility] LABORATORY Calcium 9.1 8.5 - 10.5 mg/dL [facility] LABORATORY Estimated GFR 86 >=60 mL/min/1.73 m?? [facility] LABORATORY Comment: This patient's estimated GFR [...] Organization Address City/State/ZIP [place] [address] EKG 12 Lead (05/31/2022 10:11 AM EDT) Component Value Ref Range Test Analysis Performed Pathologis t Method Time At Signature Ventricular rate 106 BPM MUSE SYSTEM QRS Duration 122 ms MUSE SYSTEM Q-T Interval 368 ms MUSE SYSTEM QTC Calculated 488 ms MUSE SYSTEM (Bezet) Calculated R Washta -43 degrees MUSE SYSTEM Calculated T Washta 109 degrees MUSE SYSTEM INTERPRETATION Atrial fibrillation [...] erpretation Confirmed by fellow MD Mike, [place] ([id number]) on 022 8:36:21 PM Confirmed by MD [...] PROTOCOL, Starting on Fri05/31/22 at 2013, Until Howe 06/02/22 at 1702, Per Pro tocol, START [...] CONTINUOUS, Starting on Fri05/31/22 at 2015, Until Howe 06/02/22 at 1702, Begin infusion at 950 [...] (Lidoderm) 5% patch 2 patch(Linked Group 1) 0416 (Patch Applied - Provider: Raven Barbour RN [...] RN)0710 (New Bag - Provider: Raven Barbour RN)3994 (Stopped - Provider: Maranda Ribeiro RN) 0-5,000 [...] - Less than 0.1 international unit/mL: Ad roller maker PRN bolus and increase rate by [...]
Routine documented in this encounter Care Teams Supercharge Repair Supervisor Relationship Specialty Start Date End Date Bobby Das MD PCP - General 10/02/[address] [place] [address] [place] [phone] documented as of this encounter
--- OUTSIDE RECORDS SUMMARY | 2022-08-02 09:54 | XMS_ITS | Encounter Summary ---
:1940 Author Organization [facility] [place] [address] Care Team Providers Name Role Phone Bobby Das MD Primary Care Provider Encounter Details Date Type Department Care Team Description 05/28/2022 Telephone Vascular Surgery at [facility] Dominique Bolivar, RN [facility] [place] [address] Social History Tobacco Use Types Packs/Day [...] RN - 05/28/2022 1:20 PM EDT This residential mortgage underwriter returned phone call due to 's [...] cardiac history and symptoms of lightheadedness, this residential mortgage underwriter recommended the patient be evaluated. Discussed [...] [facility] DR GASTROENTEROLOGY DEPT [place], [place] [address] (Wo rk) 09/05/2022 Appointment Cardiology Trinity Reid MD [facility] CARDIOLOGY [place], [place] [address] (Wo rk) 09/05/2022 Office Visit Cardiology Trinity Reid MD [facility] CARDIOLOGY [place], [place] [address] (Wo rk) documented as of this encounter Visit Diagnoses Not on filedocumented in this encounter Care Teams Home Office Claims Examiner Relationship Specialty Start Date End Date Bobby Das MD PCP - General 10/02/[address] [place] [address] [place] [phone] documented as of this encounter
--- OUTSIDE RECORDS SUMMARY | 2022-08-02 09:54 | XMS_ITS | Encounter Summary ---
:1940 Author Organization [facility] [place] [address] Care Team Providers Name Role Phone Bobby Das MD Primary Care Provider Reason for Visit Auth/Cert Specialty Diagnoses / Procedures Referred By Contact Refer red To Contact Diagnoses GIB (gastrointestinal bleeding) Abe [facility] [place] [address] Referral ID Status Reason Start Date Expiration Date Visits Requ ested Visits Authorized [id number] 1 1 Encounter Details Date Type Department Care Team Description 05/31/2022 Anesthesia Event [place] [place] [facility] Elmer Johnson MD [facility] [place] [address] [facility] Yogi Machado CRNA [facility] [place] [address] [place] [address] Anesthesia Record Procedure Summary Procedure Name [...] fossa), DION Carpenter Alysia O, RN right; ayhe-xhz-mrbmsr catheter system; 20 gauge; no longer indicated, [...] All Anesthesia Providers: Anesthesiologist: Elmer Johnson MD SERVICE CONTROL OPERATOR: Yogi Dawkins CRNA Vitals Value Taken Time BP 95/62 05/31/22 1720 Temp Pulse Resp 18 05/31/22 1720 SpO2 99 % 05/31/22 1720 Pain Level 0 05/31/22 1720 Patient Location: PACU/[facility] Level of [...] risks discussed with patient. Plan discussed with SERVICE CONTROL OPERATOR. Anesthesia Screening documented in this encounter Plan of Treatment Upcoming Encounters Date Type Specialty Care Team Description 08/08/2022 Office Visit Gastroenterology Negra Collins MD [facility] GASTROENTEROLOGY DEPT [place], [place] [address] (Wo rk) 09/05/2022 Appointment Cardiology Trinity Reid MD [facility] CARDIOLOGY [place], [place] [address] (Wo rk) 09/05/2022 Office Visit Cardiology Trinity Reid MD [facility] CARDIOLOGY [place], [place] [address] (Wo rk) documented as of [...] mg documented in this encounter Care Teams Haulage Boss Relationship Specialty Start Date End Date Bobby Das MD PCP - General 10/02/[address] [place] [address] [place] [phone] documented as of this encounter
--- OUTSIDE RECORDS SUMMARY | 2022-08-02 09:54 | XMS_ITS | Encounter Summary ---
:1940 [place] [address] Care Team Providers Name Role Phone Bobby Das MD Primary Care Provider Reason for Referral Diagnostic Test (Routine) - Closed Specialty Diagnoses / Procedures Referred By Contact Refer red To Contact Cardiology Diagnoses Paroxysmal atrial fibrillation Nasrin Parra PA [facility] Non-Inv Card Lab Procedures Ziopatch 48 Hrs-15 Days [facility] VASCULAR SURGERY [place], [place] [id number] [place] [phone] Fax: Referral ID Status Reason Start Date Expiration Date Visits V isits Requested Authorized [id number] Closed Specialty 05/21/2022 10/21/2022 1 1 Service Requested Reason for Visit Auth/Cert Specialty Diagnoses / Procedures Referred By Contact Refer red To Contact Diagnoses Limb ischemia LLE thrombus Fito Summers MD [facility] [place] [address] Referral ID Status Reason Start Date Expiration Date Visits Requ ested Visits Authorized [id number] 1 1 Encounter Details Date Type Department Care Team Description 05/21/2022 Hospital Encounter Non-Invasive Paroxysma l atrial [place] [address] Social History Tobacco Use Types Packs/Day [...] 04/12/20 21 (FLONASE) 50 mcg/actuation Nare route Jenkins, Suspension daily as needed. fluorouraciL (EFUDEX) 5 [...] MD [facility] DR GASTROENTEROLOGY DEPT [place], [place] [address] (Wo rk) 09/05/2022 Appointment Cardiology Trinity Reid MD [facility] CARDIOLOGY [place], [place] [address] (Wo rk) 09/05/2022 Office Visit Cardiology Trinity Reid MD [facility] CARDIOLOGY [place], [place] [address] (Wo rk) documented as of [...] fibrillation documented in this encounter Care Teams Lacing Cutter Relationship Specialty Start Date End Date Bobby Das MD PCP - General 10/02/[address] [place] [address] [place] [phone] documented as of this encounter
--- OUTSIDE RECORDS SUMMARY | 2022-08-02 09:54 | XMS_ITS | Encounter Summary ---
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 Atrial fibrillation, unspecified type; [facility] SOB (shortness of breath) Drive DR [place] VASCULAR SURGERY [phone] [place] [id number] [phone] Social History Tobacco Use Types Packs/Day Years [...] onset Afib who presents in transfer from [facility] with acute limb ischemia [...] emergently went to the OR for L SEAT BUILDER transverse arteriotomy and primary repair, thromboembolectomy of L SFA/PFA/SEAT BUILDER, reperfusion venous drainage for 250 cc, [...] ND, no palpable pulsatile masses Extremity - [place], warm, no ulceration, brisk capillary refill, left [...] Office Visit Gastroenterology Negra Collins MD [facility] ER GASTROENTEROLOGY DEPT [place] [address] (Wo rk) 09/05/2022 Appointment Cardiology Trinity Reid MD [facility] ER CARDIOLOGY [place], [place] [address] (Wo rk) 09/05/2022 Office Visit Cardiology Trinity Reid MD [facility] CARDIOLOGY [place], [place] [address] (Wo rk) documented as of this encounter Visit Diagnoses Diagnosis Dizzy Dizziness and giddiness Atrial fibrillation, unspecified type SOB (shortness of breath) Shortness of breath documented in this encounter Care Teams Desizing Machine Operator Head End Relationship Specialty Start Date End Date Bobby Das MD PCP - General 10/02/[address] [place] [address] [place] [phone] documented as of this encounter
--- OUTSIDE RECORDS SUMMARY | 2022-08-02 09:54 | XMS_ITS | Encounter Summary ---
:1940 Author Organization [facility] [place] [address] Care Team Providers Name Role Phone Bobby Das MD Primary Care Provider Encounter Details Date Type Department Care Team Description 05/24/2022 Telephone Cardiology at [facility] Kourtney Jimenez, RN [facility] [place] [address] Social History Tobacco Use Types Packs/Day [...] Collins MD [facility] DR GASTROENTEROLOGY DEPT [place], [place] [address] (Wo rk) 09/05/2022 Appointment Cardiology Trinity Reid MD [facility] ER CARDIOLOGY [place], [place] [address] (Wo rk) 09/05/2022 Office Visit Cardiology Trinity Reid MD [facility] ER CARDIOLOGY [place], [place] [address] (Wo rk) documented as of this encounter Visit Diagnoses Not on filedocumented in this encounter Care Teams Content Assistant Relationship Specialty Start Date End Date Bobby Das MD PCP - General 10/02/[address] [place] [address] [place] [phone] documented as of this encounter
--- OUTSIDE RECORDS SUMMARY | 2022-08-02 09:54 | XMS_ITS | Encounter Summary ---
:1940 [place] [address] Care Team Providers Name Role Phone Bobby Das MD Primary Care Provider Reason for Visit Reason Comments Dizziness Auth/Cert Specialty Diagnoses / Procedures Referred By Contact Refer red To Contact Diagnoses GIB (gastrointestinal bleeding) Abe [facility] [address] Referral ID Status Reason Start Date Expiration Date Visits Requ ested Visits Authorized [id number] 1 1 Encounter Details Date Type Department Care Team Description 05/31/2022 - Hospital Encounter Intermediate Special Dixon Hinds MD [facility] [place] [address] GIB 06/02/2022 Care Unit [place] [address] (gastrointestinal [facility] [place] [address] bleeding) ([facility] [place] [address] Dx) [place] [address] Social History Tobacco Use Types Packs/Day Years [...] Valle MD - 06/02/2022 12:48 PM EDT [facility] Medicine - Discharge Summary Patient Name: Koko [...] switching to a different bloodthinner with the kitchen work supervisor outpatient. Call your doctor or seek [...] switchingto a different blood thinner with your kitchen work supervisor as an outpatient Stopped Medications - Aspirin - Valsartan - Speak with your kitchen work supervisor about the timing of restarting this Follow-up Appointments Future Appointments Date Time Provider Department Center 06/10/2022 11:00 AM Loretta Cohen MD [facility] 06/13/2022 7:30 AM E[place] [facility] VAS LAB [facility] 06/13/2022 8:00 AM Fito Summers MD [facility] V SURG [facility] 06/13/2022 10:00 AM Alan Reid MD [address] Your Inpatient Medical Team at [facility] Name(s) of your inpatient provider(s): Dr. John Ames For questions regarding issues relating to your hospitalization on the Hospital Medicine Service, please contact your inpatient physician through the [facility] Appliance Installer [phone]. Issues after hours and on weekends will be handled by the Hospitalist staff on-call. Your Primary Care Provider Bobby Das MD [phone] Future Appointments and Orders Future Appointments and Orders Future Appointments Provider Department Dept Phone 06/10/2022 11:00 AM Loretta Cohen MD Dermatology [facility] Arrive at: Development Assistant [address] [place] [phone] 06/13/2022 7:30 AM Edson [place] Vascular Lab at [facility] Arrive at: Development Assistant Area [phone] 06/13/2022 8:00 AM Fito Summers MD Vascular Surgery at [facility] Arrive at: Development Assistant Area 06/13/2022 10:00 AM Alan Reid MD Cardiology at [facility] Arrive at: Development Assistant Area [phone] For questions regarding this document or issues relating to this hospitalization on the Medical Service, please contact your inpatient physician through the [facility] Appliance Installer . Issues after hours and on weekends [...] switching to a different bloodthinner with the kitchen work supervisor outpatient. Call your doctor or seek [...] switchingto a different blood thinner with your kitchen work supervisor as an outpatient Stopped Medications - Aspirin - Valsartan - Speak with your kitchen work supervisor about the timing of restarting this Follow-up Appointments Future Appointments Date Time Provider Department Center 06/10/2022 11:00 AM Loretta Cohen MD [facility] 06/13/2022 7:30 AM [address] [place] [facility] VAS LAB ILDA POWELL 06/13/2022 8:00 AM Fito Summers MD [facility] V SURG [facility] 06/13/2022 10:00 AM Alan Reid MD [facility] CARD 4A [facility] Your Inpatient Medical Team at [facility] Name(s) of your inpatient provider(s): Dr. John Ames For questions regarding issues relating to your hospitalization on the Hospital Medicine Service, please contact your inpatient physician through the [facility] Appliance Installer [phone]. Issues after hours and on weekends will be handled by the Hospitalist staff on-call. Your Primary Care Provider Bobby Das MD [phone] documented in this encounter Medications at Time [...] 04/12/20 21 (FLONASE) 50 mcg/actuation Nare route [place], Suspension daily as needed. fluorouraciL (EFUDEX) [...] spent >30 minutes (Day of Discharge Code 62211) involved in the final examination of the [...] were not included. Hospital Medicine Progress Note [place] Team - Pager #[phone] Admit Date: 05/31/2022 Name: Koko Zamora : [...] Kurt Ames MD Internal Medicine, PGY-1 Medicine [place] Team #[id number] Associated attestation - John Jolley MD - 06/01/2022 5:02 PM EDT [facility] Medicine -- Attending Progress Note Please [...] of two midnights or is on the [facility] inpatient only procedure list (status C) due to: GI Bleeding documented in this encounter H&P Notes Mahendra Victor MD - 05/31/2022 4:33 PM EDT Images from the original note were not included. [facility] Medicine (#[id number]) History and Physical Patient info: Name: Koko Zamora : 1940 PCP: Bobby Das MD PCP phone number: [phone] Date of Admission: 05/31/2022 ( Hospital Day 0 days ) Responsible Attending:Mahenrda Victor MD There are no hospital problems [...] MD at [facility] MAIN OR No family history on [...] 11 ??? fluticasone propionate (FLONASE) 50 mcg/actuation [place], Suspension as needed. ??? fluorouraciL (EFUDEX) [...] Gas) No results found for: PHART, PO2ART, YGJ2UOE, [id number] Microbiology: N/A Pertinent radiology/diagnostic studies: Recent prior [...] Status: Full Arpita Valle MD, PGY-3 05/31/2022 [facility] Medicine # [phone] Attending Staff Admission Documentation [...] 05/31/2022 3:58 PM EDT Norepinephrine pulled from [facility] for soft BPs. Upon arrival to [...] AM EDT Pt brought to XR by metal grader Brittany Ramirez MD - 05/31/2022 10:40 [...] have questions please contact the health manager critical care unit that requested your imaging first. Chest PA [...] have questions please contact the health manager critical care unit that requested your imaging first. Course as [...] recommendations from Brittany Tavares MD Resident 05/31/22 [id number] Associated attestation - Regina Hinds MD - [...] soft blood pressures, MD made aware. LBM TRAIN BRAKEMAN. 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 Patient reported blurry/hazy [...] - plan to bridge to [facility] Discharge planning Increase strength & mobility [...] original note were not included. [facility] NAOMY P[place] [phone] INPATIENT CARDIOLOGY CONSULT NOTE Date of Consultation: 06/01/2022 Admit Date: 05/31/2022 Place of Service: IS86/IS86-A Referring Attending: REGINA HINDS COLEMAN W FRIEDMAN, HARLEY P Responsible Speech And Language Assistant: Dr. Rizo Hospital Day 1 day Reason [...] LCX and LCx stent) who presented to [facility] on 05/31/2022 for GI bleed. Patient presented [...] MD at [facility] MA[facility] OR ALLERGIES: Allergies Allergen Reactions [...] time ??? fluticasone propionate (FLONASE) 50 mcg/actuation [place], Suspension 1 spray by Each Nare route [...] Neurology: Without focal deficit ECG: Echocardiogram: 05/16/2022 [facility] 05/20/2022 Coronary Angiography: Dominance: [...] catheter and a 3.[address] [facility] [place] [address] 20 Mhz. Imaging was successful. Image [...] A premounted 2.75 x 30 mm Rudy Garland (AMPARO) was deployed with a maximum inflation [...] may require modification of this regimen. Consult [facility] Interventional Cardiology for questions. The 1 year [...] Hb drop. Unknown source. has had a [facility] with stent placed and [...] have questions please contact the health manager critical care unit that requested your imaging first. [employer] 48 [...] have questions please contact the health manager critical care unit that requested your imaging first. Recent Labs [...] on xarelto, ischemic systolic heart failure (recent [facility] 05/20/2022 with 2V disease OM1 and distal RCA, had ostial LCX and LCx stent), recent admission for acutelimb ischemia LLE, where he had left common femoral transverse arteriotomy and primary repair, thromboembolectomy of the SFA, profunda and common femoral artery with 4 compartment fasciotomies, who presented to [facility] on 05/31/2022 for GI bleed. Cardiology consulted [...] attestation for additional insight. Rossy Anaya MD [facility] Dairy Supplies Sales Representative, PGY-5 Inpatient Cardiology Consults Pager #[phone] Please check Qgenda for on-call cardiology consults [...] A&Ox 4. On room air. VSS. LBM: TRAIN BRAKEMAN. Adequate urine output, urinal at bedside, flomax [...] surrogate would be surrogate decision maker per [place] surrogate decision making law. (Only good for 180 days) Any patient receiving care in [place] must abide by [place] law. The hierarchy for surrogate decision making [...] (i) The agent with financial power of banquet server on call or a conservator appointed in accordance with [...] - rolling Home Address confirmed as: [address] [place] [phone] Social & Family Supports: All names listed below confirmed with patient as current and correct Extended Emergency Contact Information Primary Emergency Contact: Ursula Zamora Address: [address] [place] [phone] [facility] Relation: Spouse Current Care Provided by: self [...] Type: *No Product type* / Secondary Insurance: [facility] Secondary Insurance? (Only Medicare A&B): Yes ; Prescription Coverage: Yes Preferred Pharmacy: [facility] - [facility], [place] - [address] [facility] [address] [facility] [address] Status: Patient is a : No Primary Care Provider: Bobby Das MD [phone] Patient/Caregiver Goals of Treatment: Patient plans to [...] with transition of care planning. ASH Garcia Heel Sprayer [facility] Medicine/ Medical Specialties Pager- [phone] Plan of [...] Operative Note Patient Name: Koko Rioson : [id number] MR#: [id number] Case Date: 05/31/2022 Surgeon: Surgeon(s) and Role: [...] stomach. He has had colonoscopies before in [place] - notes first ever he had 6 [...] MD at [facility] MAIN OR SOCIAL HX: Social History [...] sounds, tympanic to percussion RECTAL: performed with clinical researcher present, no overt masses, fissures, external hemorrhoids, [...] have questions please contact the health manager critical care unit that requested your imaging first. Abdomen & [...] MD [facility] GASTROENTEROLOGY DEPT [place], [place] [address] (Wo bob) 09/05/2022 Appointment Cardiology Trinity Reid MD [facility] CARDIOLOGY [place], [place] [address] (Wo bob) 09/05/2022 Office Visit Cardiology Trinity Reid MD [facility] ER DR CARDIOLOGY [place], [place] [address] (Wo rk) documented as of [...] [facility] 6.10 [facility] x10(3)/[facility] LABORATORY Lymphocytes % 25.2 % [facility] LABORATORY Lymphocytes Abs 1.8 0.9 - 3.2 [facility] x10(3)/[facility] LABORATORY Monocytes % 10.0 % [facility] LABORATORY Monocyte Abs 0.7 0.3 - 0.9 [facility] x10(3)/[facility] LABORATORY Eosinophils % 2.1 % [facility] LABORATORY Eosinophils Abs 0.2 0.0 - 0.4 [facility] x10(3)/[facility] LABORATORY Basophils % 0.7 % [facility] LABORATORY Basophils Abs 0.0 0.0 - 0.1 [facility] x10(3)/[facility] LABORATORY Immature Gran % 0.70 % [facility] [...] (H) 0.00 - 0.04 x10(3)/[facility] LABORATORY Specimen Anatomical Collection Method Collection Time Receive d Time (Source) Location / / Volume Laterality Blood 06/02/2022 8:20 AM 8:25 EDT AM EDT Resulting Agency Comment Spec In Lab Kurt Ames MD HEMATOLOGY ORDERABLES Performing Organization Address City/State/ZIP Code Phon e Number [place] [id number] [facility] [address] (ABNORMAL) Hemogram (06/02/2022 8:20 AM EDT) Analysis Performed At Patho logist Time Signature WBC 7.2 4.0 - 9.5 [place] x10(3)/[facility] LABORATORY RBC 2.74 (L) 4.58 - [place] 5.54 [facility] x10(6)/[facility] LABORATORY Hemoglobin 8.7 (L) 13.7 - [facility] 16.5 g/dL [facility] LABORATORY Hematocrit 25.7 (L) 40.5 - [facility] 48.5 % [facility] LABORATORY MCV 93.8 (H) 82.9 - [facility] 93.1 [facility] LABORATORY MCH 31.8 27.5 - [place] 32.1 pg [facility] LABORATORY MCHC 33.9 32.0 - [place] 35.7 g/dL [facility] LABORATORY Platelets 260 145 - 357 [facility] x10(3)/[facility] LABORATORY RDWSD 51.0 (H) 36.0 - [place] 45.0 [facility] LABORATORY RDWCV 14.9 (H) 11.4 - [facility] XIAO 13.8 % [facility] LABORATORY MPV 10.0 7.6 - 12.9 [facility] LABORATORY nRBC % Auto 0.0 % [facility] LABORATORY nRBC Abs Auto 0.000 0.000 - [place] 0.000 [facility] x10(3)/[facility] LABORATORY Specimen Anatomical Collection Method Collection Time Receive d Time (Source) Location / / Volume Laterality Blood 06/02/2022 8:20 AM 8:25 EDT AM EDT Resulting Agency Comment Spec In Lab Kurt Ames MD HEMATOLOGY ORDERABLES Performing Organization Address City/[facility]/[place] [address] Heparin (unfractionated) Level (06/02/2022 6:30 AM EDT) athologist Signature Heparin UFH 0.39 IU/mL [facility] LABORATORY Comment: Heparin (anti-Xa) levels should [...] Organization Address City/State/[place] [address] Heparin (unfractionated) Level (06/02/2022 12:30 AM EDT) athologist Signature Heparin UFH 0.81 IU/mL [facility] LABORATORY Comment: Heparin (anti-Xa) levels should [...] Performing Organization Address City/[facility]/ZIP Code Phon e Number [address] Magnesium (06/02/2022 12:30 AM EDT) athologist Signature Magnesium 0.83 0.69 - 1.07 [facility] mmol/L [facility] LABORATORY Specimen Anatomical Collection Method Collection Time Receive d Time (Source) Location / / Volume Laterality Blood 06/02/2022 12:30 06/02/2022 AM EDT 12:40 AM EDT Resulting Agency Comment Spec In Lab Mahendra Victor MD CHEMISTRY ORDERABLES Performing Organization Address City/[facility] Phon e Number [address] (ABNORMAL) Basic Metabolic Panel (non-fasting) (06/02/2022 12:30 AM EDT) athologist Signature Glucose Lvl 151 65 - 199 [facility] mg/dL [facility] LABORATORY [...] Organization Address City/State/ZIP Code Phon e Number [place] [id number] HOSPITAL LABORATORY Drive (ABNORMAL) Differential, Automated (06/01/2022 7:29 PM EDT) P athologist Signature Neutrophils % 68.8 % [facility] LABORATORY Neutr Abs (ANC) 5.34 1.70 - [facility] 6.10 [facility] x10(3)/[facility] LABORATORY Lymphocytes % 19.6 % [facility] LABORATORY Lymphocytes Abs 1.5 0.9 - 3.2 [facility] x10(3)/[facility] LABORATORY Monocytes % 8.1 % [facility] LABORATORY Monocyte Abs 0.6 0.3 - 0.9 [facility] x10(3)/[facility] LABORATORY Eosinophils % 1.8 % [facility] LABORATORY Eosinophils Abs 0.1 0.0 - 0.4 [facility] x10(3)/[facility] LABORATORY Basophils % 0.8 % [facility] LABORATORY Basophils Abs 0.1 0.0 - 0.1 [facility] x10(3)/[facility] LABORATORY Immature Gran % 0.90 % [facility] [...] (H) 0.00 - 0.04 x10(3)/[facility] LABORATORY Specimen Anatomical Collection Method Collection Time Receive d Time (Source) Location / / Volume Laterality Blood 06/01/2022 7:29 PM 7:29 EDT PM EDT Resulting Agency Comment Spec In Lab Kurt Ames MD HEMATOLOGY ORDERABLES Performing Organization Address City/State/[place] [address] (ABNORMAL) Hemogram (06/01/2022 7:29 PM EDT) Analysis Performed At Patho logist Time Signature WBC 7.8 4.0 - 9.5 [facility] x10(3)/[facility] LABORATORY RBC 2.65 (L) 4.58 - [place] 5.54 [facility] x10(6)/[facility] LABORATORY Hemoglobin 8.3 (L) 13.7 - [facility] 16.5 g/dL [facility] LABORATORY Hematocrit 24.8 (L) 40.5 - [place] 48.5 % [facility] LABORATORY MCV 93.6 (H) 82.9 - [facility] XIAO 93.1 [facility] LABORATORY MCH 31.3 27.5 - [place] 32.1 pg [facility] LABORATORY MCHC 33.5 32.0 - [facility] XIAO 35.7 g/dL [facility] LABORATORY Platelets 263 145 - 357 [facility] x10(3)/[facility] LABORATORY RDWSD 52.8 (H) 36.0 - [place] 45.0 [facility] LABORATORY RDWCV 15.4 (H) 11.4 - [facility] XIAO 13.8 % [facility] LABORATORY MPV 10.4 7.6 - 12.9 [facility] nRBC % Auto 0.0 % [facility] LABORATORY nRBC Abs Auto 0.000 0.000 - [place] 0.000 [facility] x10(3)/[facility] LABORATORY Specimen Anatomical Collection Method Collection Time Receive d Time (Source) Location / / Volume Laterality Blood 06/01/2022 7:29 PM 2 7:29 EDT PM EDT Resulting Agency Comment Spec In Lab Kurt Ames MD HEMATOLOGY ORDERABLES Performing Organization Address City/[facility]/ZIP Code Phon e Number [address] Heparin (unfractionated) Level (06/01/2022 7:29 PM EDT) P athologist Signature Heparin UFH 0.81 IU/mL [facility] LABORATORY Comment: Heparin (anti-Xa) levels should [...] Organization Address City/State/[place] [address] (ABNORMAL) Heparin (unfractionated) Level (06/01/2022 11:32 AM EDT) Patholo gist Method Time Signature Heparin UFH 1.05 IU/mL [facility] Level (Critical) [facility] LABORATORY Comment: Critical Result called [...] Organization Address City/State/[place] [address] (ABNORMAL) Differential, Automated (06/01/2022 5:56 AM EDT) [facility] Method Time Signature Neutrophils % 62.7 % [facility] LABORATORY Neutr Abs (ANC) 6.11 (H) 1.70 - [facility] 6.10 [facility] x10(3)/[facility] LABORATORY Lymphocytes % 23.5 % [facility] LABORATORY Lymphocytes Abs 2.3 0.9 - 3.2 [facility] x10(3)/[facility] LABORATORY Monocytes % 10.0 % [facility] LABORATORY Monocyte Abs 1.0 (H) 0.3 - 0.9 [facility] x10(3)/[facility] LABORATORY Eosinophils % 2.2 % [facility] LABORATORY Eosinophils Abs 0.2 0.0 - 0.4 [facility] x10(3)/[facility] LABORATORY Basophils % 0.9 % [facility] LABORATORY Basophils Abs 0.1 0.0 - 0.1 [facility] x10(3)/[facility] LABORATORY Immature Gran % 0.70 % [...] (H) 0.00 - 0.04 x10(3)/[facility] LABORATORY Specimen Anatomical Collection Method Collection Time Receive d Time (Source) Location / / Volume Laterality Blood 06/01/2022 5:56 AM 6:05 EDT AM EDT Resulting Agency Comment Spec In Lab Arpita Valle MD HEMATOLOGY ORDERABLES Performing Organization Address City/State/ZIP Code Phon e Number [place] [id number] HOSPITAL LABORATORY Drive (ABNORMAL) Hemogram (06/01/2022 5:56 AM EDT) Analysis Performed At Patho logist Time Signature WBC 9.7 (H) 4.0 - 9.5 [facility] x10(3)/[facility] LABORATORY RBC 2.83 (L) 4.58 - [facility] XIAO 5.54 [facility] x10(6)/[facility] LABORATORY Hemoglobin 9.0 (L) 13.7 - [facility] 16.5 g/dL [facility] LABORATORY Hematocrit 26.7 (L) 40.5 - [facility] XIAO 48.5 % [facility] LABORATORY MCV 94.3 (H) 82.9 - [facility] 93.1 fL [facility] LABORATORY MCH 31.8 27.5 - [place] 32.1 pg [facility] LABORATORY MCHC 33.7 32.0 - [facility] XIAO 35.7 g/dL [facility] LABORATORY Platelets 250 145 - 357 [facility] x10(3)/[facility] LABORATORY RDWSD 54.3 (H) 36.0 - [place] 45.0 [facility] LABORATORY RDWCV 15.9 (H) 11.4 - [place] 13.8 % [facility] LABORATORY MPV 10.5 7.6 - 12.9 [facility] IXAO [facility] LABORATORY nRBC % Auto 0.0 % [facility] LABORATORY nRBC Abs Auto 0.000 0.000 - [place] 0.000 [facility] x10(3)/[facility] LABORATORY Specimen Anatomical Collection Method Collection Time Receive d Time (Source) Location / / Volume Laterality Blood 06/01/2022 5:56 AM 2 6:05 EDT AM EDT Resulting Agency Comment Spec In Lab Arpita Valle MD HEMATOLOGY ORDERABLES Performing Organization Address City/State/[place] [address] Heparin (unfractionated) Level (06/01/2022 4:30 AM EDT) athologist Signature Heparin UFH 0.68 IU/mL [facility] LABORATORY Comment: Heparin (anti-Xa) levels should [...] Organization Address City/State/[place] [address] (ABNORMAL) Urinalysis with reflex Culture (06/01/2022 4:00 AM EDT) Patholo gist Method Time Signature Glucose UA 500 Negative [facility] (Critical) mg/dL [facility] LABORATORY Comment: Urinalysis result NOT [...] STATE [facility] LAB[facility]ORY Nitrite UA Negative Negative [facility] LABORATORY Leukocytes UA Negative Negative [facility] LABORATORY Appearance UA Clear Clear [facility] LABORATORY Spec [place] UA >=1.030 (A) 1.005 - 1.030 [facility] LABORATORY Color UA Yellow Yellow [facility] LABORATORY Culture Reflexed No [facility] LABORATORY Specimen Anatomical Collection Method Collection Time Receive d Time (Source) Location / / Volume Laterality Clean Catch 06/01/2022 4:00 AM 4:26 Urine EDT AM EDT Resulting Agency Comment Spec In Lab Mahendra Victor MD URINE ORDERABLES Performing Organization Address City/State/ZIP Code Phon e Number [address] Magnesium (06/01/2022 1:00 AM EDT) P athologist Signature Magnesium 0.93 0.69 - 1.07 [facility] mmol/L [facility] LABORATORY Specimen Anatomical Collection Method Collection Time Receive d Time (Source) Location / / Volume Laterality Blood 06/01/2022 1:00 AM 2 1:37 EDT AM EDT Resulting Agency Comment Spec In Lab Mahendra Victor MD CHEMISTRY ORDERABLES Performing Organization Address City/State/ZIP Code Phon e Number [facility] [place] [address] (ABNORMAL) Basic Metabolic Panel (non-fasting) (06/01/2022 1:00 AM EDT) P athologist Signature Glucose Lvl 148 65 - 199 [facility] mg/dL [facility] LABORATORY Comment: Diabetes: >=200 mg/dL plus symp toms BUN 23 (H) 10 - 20 mg/dL [facility] LABORATORY Creatinine 0.78 (L) 0.80 - 1.50 mg/dL [facility] LABORATORY Sodium 141 135 - 145 mmol/L [facility] LABORATORY Potassium 4.0 3.5 - 5.0 mmol/L [facility] [...] LABORATORY Calcium 8.6 8.5 - 10.5 mg/dL [facility] LABORATORY Estimated GFR 91 >=60 [...] Organization Address City/State/[place] [address] (ABNORMAL) Differential, Automated (06/01/2022 12:00 AM EDT) athologist Signature Neutrophils % 64.6 % [facility] LABORATORY Neutr Abs (ANC) 5.60 1.70 - [facility] 6.10 [facility] x10(3)/[facility] LABORATORY Lymphocytes % 22.4 % [facility] LABORATORY Lymphocytes Abs 1.9 0.9 - 3.2 [facility] x10(3)/[facility] LABORATORY Monocytes % 9.5 % [facility] LABORATORY Monocyte Abs 0.8 0.3 - 0.9 [facility] x10(3)[facility] LABORATORY Eosinophils % 2.1 % [facility] LABORATORY Eosinophils Abs 0.2 0.0 - 0.4 [facility] x10(3)[facility] LABORATORY Basophils % 0.6 % [facility] LABORATORY Basophils Abs 0.0 0.0 - 0.1 [facility] x10(3)/[facility] LABORATORY Immature Gran % 0.80 % [facility] [...] (H) 0.00 - 0.04 x10(3)/[facility] LABORATORY Specimen (Source) Anatomical Collection Method Collection Time Re ceived Time Location / / Volume Laterality Blood 06/01/2022 06/01/2022 12:1 0 AM EDT Resulting Agency Comment Spec In Lab Arpita Valle MD HEMATOLOGY ORDERABLES Performing Organization Address City/State/[place] [address] (ABNORMAL) Hemogram (06/01/2022 12:00 AM EDT) Analysis Performed At Patho logist Time Signature WBC 8.7 4.0 - 9.5 [facility] x10(3)/[facility] LABORATORY RBC 2.77 (L) 4.58 - [place] 5.54 [facility] x10(6)/[facility] LABORATORY Hemoglobin 8.6 (L) 13.7 - [place] 16.5 g/dL [facility] LABORATORY Hematocrit 25.7 (L) 40.5 - [facility] XIAO 48.5 % [facility] LABORATORY MCV 92.8 82.9 - [facility] 93.1 [facility] LABORATORY MCH 31.0 27.5 - [place] 32.1 pg [facility] LABORATORY MCHC 33.5 32.0 - [place] 35.7 g/dL [facility] LABORATORY Platelets 260 145 - 357 [facility] x10(3)/[facility] LABORATORY RDWSD 51.9 (H) 36.0 - [facility] 45.0 [facility] LABORATORY RDWCV 15.5 (H) 11.4 - [place] 13.8 % [facility] LABORATORY MPV 10.4 7.6 - 12.9 [facility] nRBC % Auto 0.0 % [facility] LABORATORY nRBC Abs Auto 0.000 0.000 - [place] 0.000 [facility] x10(3)/[facility] LABORATORY Specimen (Source) Anatomical Collection Method Collection Time Re ceived Time Location / / Volume Laterality Blood 06/01/2022 06/01/2022 12:1 0 AM EDT Resulting Agency Comment Spec In Lab Arpita Valle MD HEMATOLOGY ORDERABLES Performing Organization Address City/State/ZIP [place] [address] (ABNORMAL) Differential, Automated (05/31/2022 9:17 PM EDT) P athologist Signature Neutrophils % 59.6 % [facility] LABORATORY Neutr Abs (ANC) 3.98 1.70 - [facility] 6.10 [facility] x10(3)/[facility] LABORATORY Lymphocytes % 27.5 % [facility] LABORATORY Lymphocytes Abs 1.8 0.9 - 3.2 [facility] x10(3)/[facility] LABORATORY Monocytes % 9.1 % [facility] LABORATORY Monocyte Abs 0.6 0.3 - 0.9 [facility] x10(3)/[facility] LABORATORY Eosinophils % 2.4 % [facility] LABORATORY Eosinophils Abs 0.2 0.0 - 0.4 [facility] x10(3)/[facility] LABORATORY Basophils % 0.7 % [facility] LABORATORY Basophils Abs 0.0 0.0 - 0.1 [facility] x10(3)/[facility] LABORATORY Immature Gran % 0.70 % [facility] [...] (H) 0.00 - 0.04 x10(3)/[facility] LABORATORY Specimen Anatomical Collection Method Collection Time Receive d Time (Source) Location / / Volume Laterality Blood 05/31/2022 9:17 PM 9:25 EDT PM EDT Resulting Agency Comment Spec In Lab Arpita Valle MD HEMATOLOGY ORDERABLES Performing Organization Address City/State/ZIP Code Phon e Number [place] [id number] LAB[address]ORY Drive (ABNORMAL) Hemogram (05/31/2022 9:17 PM EDT) Analysis Performed At Patho logist Time Signature WBC 6.7 4.0 - 9.5 [facility] x10(3)/[facility] LABORATORY RBC 2.74 (L) 4.58 - [place] 5.54 [facility] x10(6)/[facility] LABORATORY Hemoglobin 8.5 (L) 13.7 - [facility] 16.5 g/dL [facility] LABORATORY Hematocrit 25.7 (L) 40.5 - [facility] 48.5 % [facility] LABORATORY MCV 93.8 (H) 82.9 - [facility] 93.1 [facility] LABORATORY MCH 31.0 27.5 - [facility] 32.1 pg [facility] LABORATORY MCHC 33.1 32.0 - [facility] 35.7 g/dL [facility] LABORATORY Platelets 233 145 - 357 [facility] x10(3)/[facility] LABORATORY RDWSD 51.9 (H) 36.0 - [facility] 45.0 [facility] LABORATORY RDWCV 15.3 (H) 11.4 - [facility] 13.8 % [facility] LABORATORY MPV 10.3 7.6 - 12.9 [facility] LABORATORY nRBC % Auto 0.0 % [facility] LABORATORY nRBC Abs Auto 0.000 0.000 - [facility] 0.000 [facility] x10(3)/[facility] LABORATORY Specimen Anatomical Collection Method Collection Time Receive d Time (Source) Location / / Volume Laterality Blood 05/31/2022 9:17 PM 9:25 EDT PM EDT Resulting Agency Comment Spec In Lab Arptia Valle MD HEMATOLOGY ORDERABLES Performing Organization Address City/State/[place] [address] Transfuse RBC (05/31/2022 7:36 PM EDT) Regina Hinds MD NURSING TREATMENT ORDERABLES - BLOOD ADMIN Transfuse RBC (05/31/2022 7:36 PM EDT) Regina Hinds MD NURSING TREATMENT ORDERABLES - BLOOD ADMIN UPPER GI ENDOSCOPY (05/31/2022 3:37 PM EDT) Component Value Ref Test Analysis Performed At Patholo gist Range Method Time Signature UPPER GI [facility] PROVATION ENDOSCOPY Endoscopy Procedure Date: 05/31/2022 3:37 PM ? Patient Name: Koko Zamora ? Date of : 1940 ? Age: 81 ? Order #: [id number] ? Instrument Name: [id number] ? Procedure: ? Upper GI endoscopy Indications: [...] Procedure Code(s): ? --- Professional --- ? 14960, Esophagogastroduode noscopy, ? flexible, transoral; with control [...] ? and duodenum CPT copyright 2020 [employer]. All rights reserved. The codes documented in this report are preliminary and upon agricultural pilot review may be revised to meet current [...] have questions please contact the health manager critical care unit that requested your imaging first. [...] enlarged lymph nodes. Vasculature: Patent common iliac, investigations manager al iliac, and common femoral arteries [...] enlarged lymph nodes. Vasculature: Patent common iliac, investigations manager al iliac, and common femoral arteries [...] have questions please contact the health manager critical care unit that requested your imaging first. Regina Hinds MD IMG CT ORDERABLES Type and Screen Validity (05/31/2022 1:43 PM EDT) [facility] Method Time Signature T&S only valid [facility] LABORATORY Comment: This Type and Screen result is only valid at the [facility] Specimen Anatomical Collection Method Collection Time Receive d Time (Source) Location / / Volume Laterality Blood 05/31/2022 1:43 PM 2 1:57 EDT PM EDT Resulting Agency Comment Spec In Lab Regina Hinds MD BLOOD BANK ORDERABLES Performing Organization Address City/[facility]/[place] [address] ABORH Recheck Status (05/31/2022 1:43 PM EDT) [facility] Method Time Signature ABORH Type Completed [facility] LABORATORY Specimen Anatomical Collection Method Collection Time Receive d Time (Source) Location / / Volume Laterality Blood 05/31/2022 1:43 PM 2 1:57 EDT PM EDT Resulting Agency Comment Spec In Lab Regina Hinds MD BLOOD BANK ORDERABLES Performing Organization Address City/[facility]/[place] [address] Antibody screen (05/31/2022 1:43 PM EDT) [facility] Method [place] Signature Ab Screen Negative [facility] LABORATORY Expires at 06/03/2022 [facility] 0620 on: [facility] LABORATORY Specimen Anatomical Collection Method Collection Time Receive d Time (Source) Location / / Volume Laterality Blood 05/31/2022 1:43 PM 2 1:57 EDT PM EDT Resulting Agency Comment Spec In Lab Regina Hinds MD BLOOD BANK ORDERABLES Performing Organization Address City/[facility]/[place] [address] ABO/Rh Typing (05/31/2022 1:43 PM EDT) P athologist Signature ABORh Type O Pos [facility] LABORATORY Specimen Anatomical Collection Method Collection Time Receive d Time (Source) Location / / Volume Laterality Blood 05/31/2022 1:43 PM 2 1:57 EDT PM EDT Resulting Agency Comment Spec In Lab Regina Hinds MD BLOOD BANK ORDERABLES Performing Organization Address City/[facility] [place] [address] Prepare RBC (05/31/2022 1:35 PM EDT) P athologist Signature Dispensed? Yes [facility] LABORATORY Specimen Anatomical Collection Method Collection Time Receive d Time (Source) Location / / Volume Laterality Blood 05/31/2022 1:35 PM 2 1:30 EDT PM EDT Regina Hinds MD BLOOD BANK ORDERABLES Performing Organization Address City/[facility]/[place] [address] Prepare RBC (05/31/2022 1:25 PM EDT) P athologist Signature Dispensed? Yes [facility] LABORATORY Specimen Anatomical Collection Method Collection Time Receive d Time (Source) Location / / Volume Laterality Blood 05/31/2022 1:25 PM 2 1:23 EDT PM EDT Regina Hinds MD BLOOD BANK ORDERABLES Performing Organization Address City/[facility] [place] [address] (ABNORMAL) Differential, Automated (05/31/2022 12:44 PM EDT) P athologist Signature Neutrophils % 62.0 % [facility] LABORATORY Neutr Abs (ANC) 4.71 1.70 - [facility] 6.10 [facility] x10(3)/[facility] LABORATORY Lymphocytes % 24.1 % [facility] LABORATORY Lymphocytes Abs 1.8 0.9 - 3.2 [facility] x10(3)/[facility] LABORATORY Monocytes % 10.8 % [facility] LABORATORY Monocyte Abs 0.8 0.3 - 0.9 [facility] x10(3)/[facility] LABORATORY Eosinophils % 1.6 % [facility] LABORATORY Eosinophils Abs 0.1 0.0 - 0.4 [facility] x10(3)/[facility] LABORATORY Basophils % 0.7 % [facility] LABORATORY Basophils Abs 0.0 0.0 - 0.1 [facility] x10(3)/[facility] LABORATORY Immature Gran % 0.80 % [facility] [...] Gran Abs 0.06 (H) 0.00 - 0.04 x10(3)/[facility] LABORATORY Specimen Anatomical Collection Method Collection Time Receive d Time (Source) Location / / Volume Laterality Blood 05/31/2022 12:44 05/31/2022 PM EDT 12:57 PM EDT Resulting Agency Comment Spec In Lab Brittany Ramirez MD HEMATOLOGY ORDERABLES Performing Organization Address City/State/ZIP Code Phon e Number [place] [id number] HOSPITAL LABORATORY Drive (ABNORMAL) Hemogram (05/31/2022 12:44 PM EDT) Analysis Performed At Patho logist Time Signature WBC 7.6 4.0 - 9.5 [facility] x10(3)/[facility] LABORATORY RBC 2.11 (L) 4.58 - [facility] 5.54 [facility] x10(6)/[facility] LABORATORY Hemoglobin 6.9 (L) 13.7 - [facility] 16.5 g/dL [facility] LABORATORY Hematocrit 20.8 (L) 40.5 - [facility] 48.5 % [facility] LABORATORY MCV 98.6 (H) 82.9 - [facility] 93.1 [facility] LABORATORY MCH 32.7 (H) 27.5 - [facility] 32.1 pg [facility] LABORATORY MCHC 33.2 32.0 - [facility] 35.7 g/dL [facility] Platelets 255 145 - 357 [facility] x10(3)/[facility] LABORATORY RDWSD 47.7 (H) 36.0 - [facility] 45.0 [facility] RDWCV 13.4 11.4 - [facility] 13.8 % [facility] LABORATORY MPV 10.7 7.6 - 12.9 [facility] LABORATORY nRBC % Auto 0.0 % [facility] nRBC Abs Auto 0.000 0.000 - [facility] 0.000 [facility] x10(3)/[facility] LABORATORY Specimen Anatomical Collection Method Collection Time Receive d Time (Source) Location / / Volume Laterality Blood 05/31/2022 12:44 05/31/2022 PM EDT 12:57 PM EDT Resulting Agency Comment Spec In Lab Brittany Ramirez MD HEMATOLOGY ORDERABLES Performing Organization Address City/State/[place] [address] (ABNORMAL) BLOOD GAS 2 VENOUS (05/31/2022 11:24 AM EDT) P athologist Signature pH [place] 7.38 7.32 - [facility] 7.42 [facility] LABORATORY pCO2 [place] 40 (L) 41 - 51 [facility] LABORATORY pO2 [place] 18 (L) 25 - 40 [facility] LABORATORY HCO3 [place] 23.3 mmol/L [facility] LABORATORY BE Marco Antonio -1.8 mmol/L [facility] LABORATORY Hgb Blood Gas 7.0 (L) 13.7 - [facility] 16.5 g/dL [facility] LABORATORY O2HB [place] 24.3 % [facility] LABORATORY COHB Marco Antonio 1.4 % [facility] Comment: Nonsmokers: 0.5-1.5% COHB Smokers: Variable, but [...] Bld 204 (H) 65 - 199 mg/dL [facility] LABORATORY Comment: Diabetes: >=200 mg/dL plus symp toms Lactate WB 1.4 0.5 - 2.2 mmol/L [facility] LABORATORY BGas Source Venous [facility] LABORATORY Specimen Anatomical Collection Method Collection Time Receive d Time (Source) Location / / Volume Laterality Blood 05/31/2022 11:24 05/31/2022 AM EDT 11:24 AM EDT Regina Hinds MD CHEMISTRY ORDERABLES Performing Organization Address City/State/[place] [address] TSH Sherrill (05/31/2022 11:20 AM EDT) P athologist Signature TSH 1.67 0.27 - 4.20 [facility] mcIU/mL [facility] LABORATORY Comment: Reference Interval (mcIU/mL): Females: ??First Trimester: 0.23-3.88 ??Second Trimester: 0.22-3.90 ??Third Trimester: 0.44-4.66 Specimen Anatomical Collection Method Collection Time Receive d Time (Source) Location / / Volume Laterality Blood 05/31/2022 11:20 05/31/2022 AM EDT 11:28 AM EDT Resulting Agency Comment Spec In Lab Regina Hinds MD CHEMISTRY ORDERABLES Performing Organization Address City/State/[place] [address] XR Chest PA & [...] have questions please contact the health manager critical care unit that requested your imaging first. [...] have questions please contact the health manager critical care unit that requested your imaging first. Regina Hinds MD IMG DX ORDERABLES Lipase (05/31/2022 10:50 AM EDT) athologist Signature Lipase 41 0 - 60 [facility]/L [facility] LABORATORY Specimen Anatomical Collection Method Collection Time Receive d Time (Source) Location / / Volume Laterality Blood Venous Draw / 05/31/2022 10:50 05/31/2022 Unknown AM EDT 11:11 AM EDT Resulting Agency Comment Spec In Lab Zain Champion MD CHEMISTRY ORDERABLES Performing Organization Address City/State/[place] [address] (ABNORMAL) Hepatic Function Panel (05/31/2022 10:50 AM EDT) Analysis Performed At Patho logist Time Signature Total Protein 6.4 6.1 - 8.0 [facility] g/dL [facility] LABORATORY Albumin 4.1 3.2 - 5.2 [facility] g/dL [facility] LABORATORY AST 24 0 - 39 [facility]/L [facility] LAB[facility] ALT 44 0 - 55 [facility] unit/L [facility] LABORATORY Alk Phos 63 40 - 130 [facility] unit/L [facility] LABORATORY Total <0.2 (L) 0.2 - 1.3 [facility] Bilirubin mg/dL [facility] LABORATORY Bili, Direct 0.1 0.0 - 0.3 [facility] mg/dL [facility] LABORATORY Specimen Anatomical Collection Method Collection Time Receive d Time (Source) Location / / Volume Laterality Blood Venous Draw / 05/31/2022 10:50 05/31/2022 Unknown AM EDT 11:11 AM EDT Resulting Agency Comment Spec In Lab Zain Champion MD CHEMISTRY ORDERABLES Performing Organization Address City/[facility]/ZIP Code Phon e Number [address] Blue Tube HOLD (05/31/2022 10:50 AM EDT) P athologist Signature Blue Hold Sample in [facility] lab. [facility] LABORATORY Specimen Anatomical Collection Method Collection Time Receive d Time (Source) Location / / Volume Laterality Blood Venous Draw / 05/31/2022 10:50 05/31/2022 Unknown AM EDT 11:05 AM EDT Brittany Ramirez MD HEMATOLOGY ORDERABLES Performing Organization Address City/[facility]/ZIP Code Phon e Number [address] (ABNORMAL) Differential, Automated (05/31/2022 10:50 AM EDT) P athologist Signature Neutrophils % 66.9 % [facility] LABORATORY Neutr Abs (ANC) 5.58 1.70 - [facility] 6.10 [facility] x10(3)/[facility] LABORATORY Lymphocytes % 22.2 % [facility] LABORATORY Lymphocytes Abs 1.8 0.9 - 3.2 [facility] x10(3)/[facility] LABORATORY Monocytes % 7.8 % [facility] LABORATORY Monocyte Abs 0.6 0.3 - 0.9 [facility] x10(3)/[facility] LABORATORY Eosinophils % 1.2 % [facility] LABORATORY Eosinophils Abs 0.1 0.0 - 0.4 [facility] x10(3)/[facility] LABORATORY Basophils % 0.7 % [facility] LABORATORY Basophils Abs 0.1 0.0 - 0.1 [facility] x10(3)/[facility] LABORATORY Immature Gran % 1.20 % [facility] [...] Gran Abs 0.10 (H) 0.00 - 0.04 x10(3)/[facility] LABORATORY Specimen Anatomical Collection Method Collection Time Receive d Time (Source) Location / / Volume Laterality Blood 05/31/2022 10:50 05/31/2022 AM EDT 11:03 AM EDT Resulting Agency Comment Spec In Lab Brittany Ramirez MD HEMATOLOGY ORDERABLES Performing Organization Address City/State/ZIP Code Phon e Number [place] [phone] HOSPITAL LABORATORY Drive (ABNORMAL) Hemogram (05/31/2022 10:50 AM EDT) Analysis Performed At Patho logist Time Signature WBC 8.3 4.0 - 9.5 [facility] x10(3)/[facility] LABORATORY RBC 2.26 (L) 4.58 - [facility] 5.54 [facility] x10(6)/[facility] LABORATORY Hemoglobin 7.4 (L) 13.7 - [facility] 16.5 g/dL [facility] LABORATORY Hematocrit 22.3 (L) 40.5 - [facility] 48.5 % [facility] LABORATORY MCV 98.7 (H) 82.9 - [facility] 93.1 fL [facility] LABORATORY MCH 32.7 (H) 27.5 - [place] 32.1 pg [facility] LABORATORY MCHC 33.2 32.0 - [place] 35.7 g/dL [facility] LABORATORY Platelets 283 145 - 357 [place] x10(3)/[facility] LABORATORY RDWSD 47.0 (H) 36.0 - [place] 45.0 [facility] LABORATORY RDWCV 13.4 11.4 - [place] 13.8 % [facility] LABORATORY MPV 10.8 7.6 - 12.9 [place] [facility] LABORATORY nRBC % Auto 0.0 % [facility] LABORATORY nRBC Abs Auto 0.000 0.000 - [facility] 0.000 [facility] x10(3)/[facility] LABORATORY Specimen Anatomical Collection Method Collection Time Receive d Time (Source) Location / / Volume Laterality Blood 05/31/2022 10:50 05/31/2022 AM EDT 11:03 AM EDT Resulting Agency Comment Spec In Lab Brittany Ramirez MD HEMATOLOGY ORDERABLES Performing Organization Address City/State/ZIP Code Phon e Number [address] Phosphorus (05/31/2022 10:50 AM EDT) P athologist Signature Phosphorus 3.2 2.5 - 4.5 [facility] mg/dL [facility] LABORATORY Specimen Anatomical Collection Method Collection Time Receive d Time (Source) Location / / Volume Laterality Blood 05/31/2022 10:50 05/31/2022 AM EDT 11:03 AM EDT Resulting Agency Comment Spec In Lab Regina Hinds MD CHEMISTRY ORDERABLES Performing Organization Address City/State/ZIP Code Phon e Number [address] Magnesium (05/31/2022 10:50 AM EDT) P athologist Signature Magnesium 0.93 0.69 - 1.07 [facility] mmol/L [facility] LABORATORY Specimen Anatomical Collection Method Collection Time Receive d Time (Source) Location / / Volume Laterality Blood 05/31/2022 10:50 05/31/2022 AM EDT 11:03 AM EDT Resulting Agency Comment Spec In Lab Regina Hinds MD CHEMISTRY ORDERABLES Performing Organization Address City/State/ZIP Code Phon e Number [address] (ABNORMAL) pro-Brain Natriuretic Peptide (05/31/2022 10:50 AM EDT) athologist Signature ProBNP 1,077 (H) <=449 [facility] [email or web address] pg/mL [facility] LABORATORY Specimen Anatomical Collection Method Collection Time Receive d Time (Source) Location / / Volume Laterality Blood 05/31/2022 10:50 05/31/2022 AM EDT 11:03 AM EDT Resulting Agency Comment Spec In Lab Regina Hinds MD CHEMISTRY ORDERABLES Performing Organization Address City/State/[place] [address] HOSPITAL [address] Troponin (05/31/2022 10:50 AM EDT) athologist Signature Troponin-T <0.01 0.00 - 0.00 [facility] XIAO ng/mL [facility] Comment: The 99th percentile [...] additional sample may be indicated. Reference: [place] Definition of Myocardial Infarction. Journal of the [place] [employer] 2012;60:1581-98 Specimen Anatomical Collection Method Collection Time Receive d Time (Source) Location / / Volume Laterality Blood 05/31/2022 10:50 05/31/2022 AM EDT 11:03 AM EDT Resulting Agency Comment Spec In Lab Regina Hnids MD CHEMISTRY ORDERABLES Performing Organization Address City/State/ZIP Code Phon e Number [place] [phone] [facility] [address] (ABNORMAL) Basic Metabolic Panel (non-fasting) (05/31/2022 10:50 AM EDT) athologist Signature Glucose Lvl 223 (H) 65 - 199 [facility] mg/dL [facility] Comment: Diabetes: >=200 mg/dL plus symp toms BUN 39 (H) 10 - 20 mg/dL [facility] Creatinine 0.91 0.80 - 1.50 mg/dL [facility] Sodium 140 135 - 145 mmol/L [facility] Potassium 4.1 3.5 - 5.0 mmol/L [facility] LABORATORY Calcium 9.1 8.5 - 10.5 mg/dL [facility] Estimated GFR 86 >=60 [...] Organization Address City/State/[place] [address] EKG 12 Lead (05/31/2022 10:11 AM EDT) Component Value Ref Range Test Analysis Performed Pathologis t Method Time At Signature Ventricular rate 106 BPM MUSE SYSTEM QRS Duration 122 ms MUSE SYSTEM Q-T Interval 368 ms MUSE SYSTEM QTC Calculated 488 ms MUSE SYSTEM (Bezet) Calculated R [place] -43 degrees MUSE SYSTEM Calculated T [place] 109 degrees MUSE SYSTEM INTERPRETATION Atrial fibrillation with rapid ventricular response MUSE SYSTEM Left axis deviation Minimal voltage criteria for LVH, may be normal variant ( [place] product ) Cannot rule out Anterior infarct , age undetermined Abnormal ECG When compared with ECG of 20-MAY-2022 19:04, No significant change was found I personally reviewed the tracing and edited the fellows int erpretation Confirmed by fellow MD Mike, [place] ([id number]) on 022 8:36:21 PM Confirmed by MD [...] (Lidoderm) 5% patch 2 patch(Linked Group 1) 5198 (Patch Applied - Provider: Raven Barbour RN [...] this morning IVP) 0811 (Given - Provider: rTinidad Saenz RN) 40 mg, Oral, DAILY, First [...] - Less than 0.1 international unit/mL: [employer] 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 med 0-4,000 Units, Intravenous, BOLUS PER [facility], Starting on Fri05/31/22 at 2014, [...]
Routine documented in this encounter Care Teams Ballistician Relationship Specialty Start Date End Date Bobby Das MD PCP - General 10/02/[address] [place] [address] [place] [id number] documented as of this encounter
--- OUTSIDE RECORDS SUMMARY | 2022-08-02 09:55 | XMS_ITS | Encounter Summary ---
:1940 Author Organization [facility] [place] [address] Care Team Providers Name Role Phone Bobby Das MD Primary Care Provider Reason for Referral Consultation (Routine) - Authorized Specialty Diagnoses / Procedures Referred By Contact Refer red To Contact Diagnoses Non-ST elevation myocardial infarction (NSTEMI) Limb ischemia Nasrin Parra PA [facility] Tobacco Treatment [place] [address] [place] [address] Referral ID Status Reason Start Date Expiration Visits Visits Date Requested Authorized [id number] Authorized Consult, 05/21/2022 05/21/2023 1 1 Test & Treat iagnostic Test (Routine) - Closed Specialty Diagnoses / Procedures Referred By Contact Refer red To Contact Cardiology Diagnoses Paroxysmal atrial fibrillation Nasrin Parra PA [facility] [place] Non-Inv Card Lab Procedures Ziopatch 48 Hrs-15 Days [facility] [place] [address] [place] [address] Fax: Referral ID Status Reason Start Date Expiration Date Visits V isits Requested Authorized [id number] Closed Specialty 05/21/2022 10/21/2022 1 1 Service Requested Consultation (Routine) - Closed Specialty Diagnoses / Procedures Referred By Contact Refer red To Contact Cardiology Diagnoses HFrEF (heart failure with reduced ejection fraction) Paroxysmal atrial fibrillation Post-hospital follow-up, s/p PCI with stenting, heart failure Nasrin Parra PA [facility] Cardiology 4a [facility] D R [facility] [place] [address] [place] [address] Referral ID Status Reason Start Date Expiration Date Visits V isits Requested Authorized [id number] Closed Consult, 05/21/2022 05/21/2023 1 1 Test & Treat iagnostic Test (Routine) - Authorized Specialty Diagnoses / Procedures Referred By Contact Refer red To Contact Diagnoses Limb ischemia Nasrin Parra PA [facility] [place] Vascular Lab 3v Procedures JOSSELYN, legs, multiple levels [facility] [place] [address] [place] [address] Referral ID Status Reason Start Expiration Visits Visits Date Date Requested Authorized [id number] Authorized Specialty 05/21/2022 05/21/2023 1 1 Service Requested dith [facility] Health Care (Routine) - Authorized Specialty Diagnoses / Procedures Referred By Contact Refer red To Contact Diagnoses Limb ischemia Fito Summers MD [facility] [place] [address] [place] [address] [address] Fax: Referral ID Status Reason Start Date Expiration Visits Visits Date Requested Authorized [id number] Authorized Consult, 05/21/2022 11/17/2022 999 999 Test & Treat Reason for Visit Reason Comments Left Leg Pain Auth/Cert Specialty Diagnoses / Procedures Referred By Contact Refer red To Contact Diagnoses Limb ischemia LLE thrombus Fito Summers MD [facility] [place] [address] Referral ID Status Reason Start Date Expiration Date Visits Requ ested Visits Authorized [id number] 1 1 Encounter Details Date Type Department Care Team Description 05/15/2022 - Hospital Intermediate Cardiac Ravi Summers MD [facility] [place] [address] Atrial fibrillation, unspecified type; 05/21/2022 Encounter Care Unit Wellington Gerard MD [facility] [place] [address] Non-ST elevation myocardial infarction ( NSTEMI); [facility] Limb isch emia; [facility] HFrEF (heart failure with re duced ejection fraction); [facility] [place]oxysma [place] [address] Social History Tobacco Use Types Packs/Day Years [...] onset Afib who presents in transfer from [facility] with acute limb ischemia of [...] went to the OR for L SENIOR PROPERTY MANAGER transverse arteriotomy and primary repair, thromboembolectomy of L SFA/PFA/SENIOR PROPERTY MANAGER, reperfusion venous drainage for 250 cc, [...] Discharge Condition: Good Discharge to: Home with [address] [address] Future Appointments and Orders Future Appointments and Orders Future Appointments Provider Department Dept Phone 05/23/2022 10:30 AM Loretta Cohen MD Dermatology at [facility] Arrive at: Home Visits Nurse [address] [place] [address] 06/07/2022 1:30 PM Gail Rae APRN Vascular Surgery at [facility] Arrive at: Home Visits Nurse Area [phone] 06/13/2022 7:30 AM Edson Lagos [place] Vascular Lab at [facility] Arrive at: Home Visits Nurse Area [phone] 06/13/2022 8:00 AM Fito Summers MD Vascular Surgery at [facility] Arrive at: Home Visits Nurse Area [phone] 06/13/2022 10:00 AM Alan Reid MD Cardiology at [facility] Arrive at: Home Visits Nurse Area [phone] Future Orders Complete By Expires Demetriusopatch 48 Hrs-15 Days [[id number] CPT(R)] 05/21/2022 11/20/2022 Process Instructions: Scheduling Instructions: Comments: Questions: Does the patient have a pacemaker? If yes provide HI/LO settings: Apply for 7 or 14 days?: 7 Where will study be performed?: [facility] Clinics JOSSELYN, legs, multiple levels [VAS8 Custom] 06/21/2022 (Approximate) 12/21/2022 Process Instructions: There is no in-house vascular garden labourer available on weeknights (5pm-8am), weekends, or holidays. IF THIS IS A REQUEST FOR AN EMERGENT STUDY DURING THOSE HOURS, please have the senior provider responsible for the patient page the Vascular Surgery Fellow/Senior Resident policy cancellation clerk to discuss options. Scheduling Instructions: Questions: Indication for study/signs & symptoms: ALI s/p L fem cutdown with thromboembolectomy Question to be answered: Perfusion to feet? Please check toe pressure Preferred location?: [facility] Clinics Referral to Cardiology [...] for admission to Home Health. [address] [facility] [address] (home) Date of : 1940 Inpatient DOCUMENTATION FOR VNA SERVICES (INCLUDING THOSE PATIENTS WITH MEDICARE COVERAGE REQUIRING HOME VNA SERVICES AND/OR HOSPICE SERVICES) PATIENT'S LOCATION: Koko Zamora [address] [facility] [id number] (home) Cell: No relevant phone numbers on file. Aircraft Manager's Name: Koko In discussion with the attending physician, it is certified that this patient is under their care and that they, or a Nurse Practitioner,Clinical Nurse specialist or Physician Rotary Bar Operator who is working directly with them, [...] for managing ADL's. HOME HEALTH CARE AGENCY: [facility] [address] [place] [address] Start of care: Within 24 to 48 [...] obtained from this patient'sPCP: Bobby Das MD [address] [place] [phone] All A agencies which cover the [...] For any problems or questions please call [phone] For issues on weeknights after 5pm and weekends please call [phone] and ask for the Vascular Fellow policy cancellation clerk. JOSEE Santiago Vascular Surgery 05/21/2022 documented in [...] For any problems or questions please call [phone] For issues on weeknights after 5pm and weekends please call [phone] and ask for the Vascular Fellow policy cancellation clerk. documented in this encounter Medications at Time [...] 04/12/20 21 (FLONASE) 50 mcg/actuation Nare route Bellevue, Suspension daily as needed. fluorouraciL (EFUDEX) 5 [...] onset Afib who presents in transfer from [facility] with acute limb ischemia of [...] status, full code. JOSEE Santiago 05/21/2022 Pager: [phone] Brannon Isaacs, PT - 05/21/2022 10:35 AM [...] plan as stated. Time IN / OUT: 7735-6082 Total Minutes, Physical Therapy: 25 Billing Code: 2 BOSTON Isaacs DPT Pager: [phone] Physical Therapy Inpatient Rehabilitation Department Wellington Jean [...] in Pain and Spine Center at [facility] Weight 79.8 kg (175 [...] and plan of care per Dr. Mcnamara (relationship manager). 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 His [...] to Hosp-Admission (Current) from 05/15/2022 in 4 [facility] Office Visit from 04/17/2021 in Pain and Spine Center at [facility] Weight 79.8 kg (175 [...] findings andplan of care per Dr. Mcnamara (relationship manager). Please refer to her note above for [...] mitral repair in 2000 (not at [facility]) with no CAD at [...] and the first documented HR at [facility] was 125 bpm (presented [...] onset Afib who presents in transfer from [facility] with acute limb ischemia of [...] management following Dottie Hill APRN 05/20/2022 Pager: [phone] Laney Atkins RN - 05/20/2022 1:14 AM [...] and handed off to [facility] RN Dottie Hill APRN - 05/19/2022 10:02 AM EDT Vascular Surgery Progress Note Koko Zamora is a 81 y.o. male with w new onset Afib who presents in transfer from [facility] with acute limb ischemia of the LLE. ?? The patient had sudden pain starting at 630 05/15/22, he presented [facility] where he was placed on heparin. [...] management following Dottie Hill APRN 05/19/2022 Pager: [phone] Emily Greer RN - 05/19/2022 6:28 AM EDT OUTCOME EVALUATION NOTE: OUTCOME SUMMARY: Patient AOx4, VSS on RA. Afib on tele. HR controlled w/ PRN metop, given x2. Denies CP, SOB, n/v. See flowsheets for NVC. Dressings to LLE CDI, prevena WV to groin intact. Voiding to urinal. [employer], patient stating he will maybe try the [...] adequately without difficulty to bedside urinal. [employer]. Up to chair this AM with nursing staff. Worked with PT, tolerated well. Diet changed to regular at 1800.Plan is for cardiac cath on Friday. PLAN MOVING FORWARD: Bleeding precautions Pain management neurovascular checks PT/OT labor crew supervisor INDIVIDUALIZED FALL PREVENTION INTERVENTIONS: Patient-specific fall [...] onset Afib who presents in transfer from [facility] with acute limb ischemia of [...] mL Intravenous BID ??? PHENobarbitaL 0.12 mg/kg/dose (Orange) Oral BID ??? thiamine 100 mg Oral [...] management following Dottie Hill APRN 05/18/2022 Pager: [phone] Brannon Isaacs, PT - 05/18/2022 10:00 AM [...] in this evaluation. Time IN / OUT: 8162-4009 Total Minutes, Physical Therapy: 30 Billing Code: Basilio Isaacs, PT Pager: [phone] Physical Therapy Inpatient Rehabilitation Department Emily Sauceda RN - 05/18/2022 4:34 AM EDT OUTCOME EVALUATION NOTE: OUTCOME SUMMARY: Patient AOx4, VSS on 2LNC. Afib on tele. HR above 120, MD aware, PRN IV metop given x1, HR returned to 90's-low 100's. Denies CP, SOB, n/v. See flowsheets for NVC. Dressings to LLE CDI, prevena WV to groin intact. Voiding to urinal. [employer]. Heparin gtt therapeutic. Pain controlled. Patient sleeping [...] adequately without difficulty to bedside urinal. [employer]. Patient not OOB this shift. Currently NPO awaitingprocedure in label rewinder. PLAN MOVING FORWARD: Bleeding precautions Pain management neurovascular checks PT/OT NPO for label rewinder INDIVIDUALIZED FALL PREVENTION INTERVENTIONS: Patient-specific [...] the Emergency Department as a transfer from [facility] with left lower extremity limb ischemia. He went to [facility] and was startedon heparin and transferred to [facility] for evaluation by vascular surgery with [...] will will be going to the label rewinder for evaluation. Will defer PT eval at present but will see as ordered post cardiac catheritizaton. Social Hx:Pt lives with his Ursula in [place], [place] in a 2 level home in [...] WBAT LLE LISBET HERMAN PT Pager # [phone] In-Pt Rehab Medicine Dottie Hill APRN - 05/17/2022 7:42 AM EDT Vascular Surgery Progress Note Koko Zamora is a 81 y.o. male with w new onset Afib who presents in transfer from [facility] with acute limb ischemia of [...] mL Intravenous BID ??? PHENobarbitaL 0.24 mg/kg/dose (Orange) Oral BID Followed by ??? [START ON 05/18/2022] PHENobarbitaL 0.12 mg/kg/dose (Orange) Oral BID ??? thiamine 100 mg Oral [...] management following Dottie Hill APRN 05/17/2022 Pager: [phone] Sary Dos Santos, RN - 05/17/2022 12:16 [...] onset Afib who presents in transfer from [facility] with acute limb ischemia of [...] mL Intravenous BID ??? PHENobarbitaL 0.48 mg/kg/dose (Orange) Oral BID Followed by ??? [START ON 05/17/2022] PHENobarbitaL 0.24 mg/kg/dose (Orange) Oral BID Followed by ??? [START ON 05/18/2022] PHENobarbitaL 0.12 mg/kg/dose (Orange) Oral BID ??? thiamine 100 mg Oral [...] management following Edward Rodríguez MD 05/16/2022 Pager: [phone] Sary Dos Santos RN - 05/16/2022 12:52 [...] to PACU. Hand off received from Torres Agiular CRNA. care assumed. Hypotensive by A-line, waveform dampened. Will rely on cuff. Assessments as documented. Monitors on, alarms audible and individualized to patient. 1929 PACU D/C criteria met 2129 Hand off to DION Ramirez 3 aurora documented in this encounter H&P Notes Kerry [...] onset Afib who presents in transfer from [facility] with acute limb ischemia of [...] Refill ??? fluticasone propionate (FLONASE) 50 mcg/actuation Bellevue, Suspension as needed. ??? fluorouraciL (EFUDEX) 5 [...] and consented. Tim Chicas MD 05/15/2022 Pager: [phone] documented in this encounter ED Notes Lc Harris PA - 05/15/2022 1:20 PM EDT ED Provider Note HPI: Koko Zamora is a 81 y.o. male with history of atrial fibrillation not on anticoagulation, and GI bleeding who presents to the Emergency Department as a transfer from [facility] with left lower extremity limb ischemia. Patient says that the symptoms started roughly 630 this morning when he developed severe pain in his left lower extremity. He went to [facility] and was started on heparin and transferred to [facility] for evaluation by vascular surgery. Review [...] lower extremity earlier today and went to [facility] where it was determined that he had ischemia of the left lower extremity. Vascular surgery [facility] was contacted and he was transferred [...] before pt. Arrival. Pt. Arrived at [facility] by EMS at 1150, [...] in an outpatient cardiac rehabilitation program at [facility] was discussed. Patient agrees to a referral to this program. Timing will depend on his recovery from Vascular surgery. He is going home w/VNA PT. I gave him the brochure for the program at [facility] for future reference. Care Management [...] information for follow-up [facility] H[facility], [place] [address] [place] [address] Transportation: family or friend will provide Functional [...] Type: *No Product type* / Secondary Insurance: [employer] Prescription Coverage: Yes This plan was formulated with input from patient and team. All are in agreement with plan. IP RS has communicated with Percy - for initial IMM. RAlmita (Satish) DION López RN/CM - Cellphone: [phone] Pager: [phone] Covering Service RN/CM Plan of Care - [...] catheterization, transferred in hospital bed accompanied by Traffic Signal Repairer RN, remains on telemetry monitoring. Heparin gtt [...] Type: *No Product type* / Secondary Insurance: [employer] Last Physical Therapy Recommendation: home with home health, home with supervision with None Last Occupational Therapy Recommendation: with Plan for discharge is: Home w/ Services Outpatient Agency/Support Group Needs: None Home Health Services: Registered Nurse, Physical Therapy, Occupational Therapy Agency Referrals: I have met with the patient to: ?? discuss discharge planning needs. ?? provide the [facility], Office of Care Management letter from the Java Android Developer pertaining to rehab referrals. ?? provide a letter describing our affiliations within the [facility] and educate about their right to choose where referrals are sent. ?? provide a list of Home Health Agencies / Durable Medical Equipment vendors which serve their preferred geographic area. ?? provided patient with [facility] Star Quality Rating handout. They have requested referrals to: [facility]. [address] [place] [address] Note routed to a Air Hole Driller who will communicate referrals to facilities and provide any required information. Transportation: family or friend will provide Barriers to discharge: None Plan going forward: Patient is going for a cardiac cath today and plan will come from there. Patientwas recently seen by PT and they recommend VNA at time of discharge. [facility] was routed and pendedat this time. Care Management will continue to follow and assist with discharge planning and coordination of care as indicated. Anticipated Date of Discharge: 05/21/2022 Nataly RICHMOND RN Phone: [phone] Pager: [phone] Plan of Care - Laney Atkins RN [...] from the original note were not included. [facility] [place] [address] [address] INPATIENT CARDIOLOGY CONSULT NOTE Date of Consultation: 05/17/2022 Admit Date: 05/15/2022 Hospital Day 2 days Reason for Consult: New afib Active Problems: Active Hospital Problems Diagnosis Limb ischemia Resolved Hospital Problems No resolved problems to display. HPI: Koko Zamora is a 81 y.o. male with a PMHx significant for MVP (s/p MV repair 2000), tobacco use, HLD, who presented to [facility] from OSH on 05/15 with acute limb ischemia of LLE and was found to be in atrial fibrillation. Patient had sudden onset LLE pain on 05/15 and presented to [facility], where he was started on heparin and transferred to [facility]. Upon arrival to [facility], patient was in atrial [...] mouth daily. fluticasone propionate (FLONASE) 50 mcg/actuation [place], Suspension as needed. ascorbic acid, vitamin C, [...] 5 mL Intravenous BID PHENobarbitaL 0.24 mg/kg/dose (Orange) Oral BID Followed by [START ON 05/18/2022] PHENobarbitaL 0.12 mg/kg/dose (Orange) Oral BID thiamine 100 mg Oral Daily folic acid 1,000 mcg Oral Daily multivitamin with minerals 1 tablet Oral Daily heparin (porcine) infusion 1,200 Units/hr (05/17/22 2040) Family History: No family history on file. [...] ED to Hosp-Admission (Current) from 05/15/[address] [place] [address] Office Visit from 04/17/2021 in Pain and Spine Center at [facility] Weight 79.8 kg (175 [...] continue to follow Anne-Marie Larson MD Pager [phone] Clinic: [phone] 05/17/22 6:22 PM Initial Assessments - Ifrah [...] spouse would be surrogate decision maker per [place] surrogate decision making law. (Only good for 180 days) Any patient receiving care at [facility] must abide by [place] law. The hierarchy [...] (i) The agent with financial power of spanish tutor or a conservator appointed in accordance with [...] seat Home Address confirmed as: [facility] [facility] [address] Social & Family Supports: All names listed below confirmed with patient as Incorrect. Will notify conifer to correct. Wifes address is same as and phone is [phone]. Extended Emergency Contact Information Primary Emergency Contact: Demarco Zamorana Address: [facility] [place] [address] [facility] Relation: Spouse Current Care Provided by: self [...] Type: *No Product type* / Secondary Insurance: [employer] Prescription Coverage: Yes Preferred Pharmacy: [id number] - [place], [place] - [address] [facility] [address] [place] [address] [facility] - [place], [place] - [address] [facility] [address] [facility] [address] [place] Status: Patient is a : unable to assess Primary Care Provider: Bobby Das MD [phone] Patient/Caregiver Goals of Treatment: to walk again Potential Needs for Transition of Care: none noted per 05/16 IDR Transportation: family will provide Transportation Anticipated: family or friend will provide Concerns to be Addressed: no discharge needs identified Assessment: Patient is admitted to vascular surg service for left lower extremity limb ischemia Plan: Per PT OT recommendations . Has used [employer] in the past. A member of the Care Management team will continue to monitor progress, follow for continuity of care and assist with transition of care planning. Ifrah Bell RN BSN Manager StoreChange Room Attendant of Care Management Pager [phone] Brief Op Note - Erin Garza MD - 05/15/2022 5:04 PM EDT Brief Operative Note Patient Name: Koko Zamora : [id number] MR#: [id number] Case Date: 05/15/2022 Surgeon: Surgeon(s) and Role: [...] MD - 05/15/2022 2:08 PM EDT [facility] Operative Note Patient Name: Koko Zamora : [id number] MR#: [id number] Case Date: 05/15/2022 Surgeon: Surgeon(s) and Role: [...] MD [facility] GASTROENTEROLOGY DEPT [place], [place] 0[address] (Wo rk) 09/05/2022 Appointment Cardiology Trinity Reid MD [facility] CARDIOLOGY [place], [place] 0[address] (Wo rk) 09/05/2022 Office Visit Cardiology Trinity Reid MD [facility] CARDIOLOGY [place], [place] 0375 (Wo rk) Scheduled Referrals Name [...] Department: Vascular Surgery Lab VASCUBASE Report Patient: [id number] (KOKO ZAMORA) CPT: 56308 Referring Physician: FITO SUMMERS ?? Phone: Indications: s/p L SENIOR PROPERTY MANAGER endart. Diabetes mellitus: no Findings: Right [...] EDT) athologist Signature Heparin UFH 0.42 IU/mL [facility] [...] Organization Address City/State/Z[place] [address] Differential, Automated (05/21/2022 6:15 AM EDT) athologist Signature Neutrophils % 58.8 % [facility] LABORATORY Neutr Abs (ANC) 3.97 1.70 - [facility] 6.10 [facility] x10(3)[facility] LABORATORY Lymphocytes % 25.2 % [facility] LABORATORY Lymphocytes Abs 1.7 0.9 - 3.2 [facility] x10(3)/[facility] LABORATORY Monocytes % 12.9 % [facility] LABORATORY Monocyte Abs 0.9 0.3 - 0.9 [facility] x10(3)[facility] LABORATORY Eosinophils % 2.1 % [facility] LABORATORY Eosinophils Abs 0.1 0.0 - 0.4 [facility] x10(3)/[facility] LABORATORY Basophils % 0.4 % [facility] LABORATORY Basophils Abs 0.0 0.0 - 0.1 [facility] x10(3)/[facility] LABORATORY Immature Gran % 0.60 % [...] - 0.04 x10(3)/[facility] MAR Y [facility] LABORATORY Specimen Anatomical Collection Method Collection Time Receive d Time (Source) Location / / Volume Laterality Blood 05/21/2022 6:15 AM 2 6:38 EDT AM EDT Resulting Agency Comment Spec In Lab Edward Rodríguez MD HEMATOLOGY ORDERABLES Performing Organization Address City/State/[place] [address] (ABNORMAL) Hemogram (05/21/2022 6:15 AM EDT) [facility] gist Method Time Signature WBC 6.8 4.0 - 9.5 [facility] x[facility](3)/[facility] LABORATORY RBC 3.59 (L) 4.58 - IFRAH XIAO 5.54 [facility] x10(6)/[facility] LABORATORY Hemoglobin 11.8 (L) 13.7 - [facility] 16.5 g/dL [facility] LABORATORY Hematocrit 34.5 (L) 40.5 - [facility] 48.5 % [facility] HOSPITAL LABORATORY MCV 96.1 (H) 82.9 - [facility] XIAO 93.1 [facility] LABORATORY MCH 32.9 (H) 27.5 - [facility] XIAO 32.1 pg [facility] LABORATORY MCHC 34.2 32.0 - [facility] XIAO 35.7 g/dL [facility] LABORATORY Platelets 198 145 - 357 [facility] x10(3)/[facility] LABORATORY RDWSD 44.9 36.0 - [facility] LABORATORY RDWCV 12.6 11.4 - [facility] XIAO 13.8 % [facility] LABORATORY MPV 10.0 7.6 - 12.9 [facility] LAB[facility] nRBC % Auto 0.3 % [facility] LABORATORY nRBC Abs Auto 0.020 (H) 0.000 - [facility] XIAO 0.000 [facility] x10(3)/[facility] LABORATORY Specimen Anatomical Collection Method Collection Time Receive d Time (Source) Location / / Volume Laterality Blood 05/21/2022 6:15 AM 2 6:38 EDT AM EDT Resulting Agency Comment Spec In Lab Edward Rodríguez MD HEMATOLOGY ORDERABLES Performing Organization Address City/State/Z[place] [address] EKG 12 Lead (05/20/2022 7:04 PM EDT) Component Value Ref Range Test Analysis Performed Pathologis t Method Time At Signature Ventricular rate 101 BPM MUSE SYSTEM QRS Duration 116 ms MUSE SYSTEM Q-T Interval 378 ms MUSE SYSTEM QTC Calculated 490 ms MUSE SYSTEM (Bezet) Calculated R [place] -53 degrees MUSE SYSTEM Calculated T [place] 101 degrees MUSE SYSTEM INTERPRETATION Atrial fibrillation [...] Laterality Volume Narrative 05/20/2022 7:09 PM EDT ?[facility] ? Cardiac Cathete rization/Intervention Report ? Patient Name: Koko Zamora ? Procedure Date: 05/20/2022 ? A #: [id number] ? Primary Physician: Abundio Servin ? Case #: [id number] ? File Name: [id number] ? Catheterization Order Number: [id number] ? [facility] ? Final Report [place], [place] ? Patient Name: ? Koko J. Klarissa uson ? ID#: ?[id number] ? : ?1940 ? Procedure Date: ? [...] was Urgent. The indication for ?the label rewinder visit is cardiomyo nita. Chest [...] ?3.5 guiding catheter and a 3.5 Fr [facility] [place] [address] ??20 Mhz. ??Imaging ?was successful. ??Image [...] A premounted 2. 75 x 30 mm Lander Boyce (AMPARO) was deployed ? with a maximum [...] ?modification of this regimen. C onsult [facility] Interventional Cardiology for ?questions. ?The 1 year [...] note might be different from the original. [facility] Cardiac Catheterization/Intervention Re port Patient Name: Koko Zamora Procedure Date: 05/20/2022 A #: [id number] Primary Physician: Abundio Servin Case #: File Name: [id number] Catheterization Order Number: [id number] [facility] Final Report [place], [place] Patient Name: Koko Zamora ID#: [id number] : 1940 Procedure Date: May 20, 2022 [...] s ASA Class IV. The [facility] clinical frailty scale is 3: Managing [...] was Urgent. The indication for the label rewinder visit is cardiomyopathy. C hest pain symptom [...] 3.5 guiding catheter and a 3.5 Fr [facility] [place] [address] 20 Mhz. Imaging was successful. Image [...] atmospheres. A premounted 2.75 x 30 mm Lander Boyce (AMPARO) was deployed with a maximum inflation [...] require modification of this regimen. Consult D [facility] Interventional Cardiology [...] 123 65 - 199 [facility] [place] mg/dL [facility] LABORATORY Comment: Supplemental ranges: <140 mg/dL before meals <180 mg/dL all other times of the day Specimen Anatomical Collection Method Collection Time Receive d Time (Source) Location / / Volume Laterality Blood 05/20/2022 5:42 PM 5:42 EDT PM EDT Fito Summers MD POINT OF CARE TEST ORDERABLE S Performing Organization Address City/State/[place] [address] (ABNORMAL) BMP w/fasting Glucose (05/20/2022 10:50 AM EDT) P athologist Signature Glucose 152 (H) 65 - 99 [facility] Fasting mg/dL [facility] LABORATORY Comment: ?Fasting* Glucose Interpretive C [...] of Diabetes Mellitus, Position Statement from the [place] [employer]. ??Diabete s Care, Volume 33, Supplement 1, Nov 2009 BUN 11 10 - 20 mg/dL [facility] LABORATORY Creatinine 0.63 (L) 0.80 - 1.50 mg/dL [facility] LABORATORY Sodium 137 135 - 145 [...] Organization Address City/State/Z[place] [address] Heparin (unfractionated) Level (05/20/2022 5:02 AM EDT) athologist Signature Heparin UFH 0.57 IU/mL [facility] [...] Organization Address City/State/Z[place] [address] (ABNORMAL) Differential, Automated (05/20/2022 5:02 AM EDT) Patholo gist Method Time Signature Neutrophils % 58.1 % [facility] LABORATORY Neutr Abs (ANC) 4.52 1.70 - [facility] 6.10 [facility] x10(3)/[facility] LABORATORY Lymphocytes % 24.1 % [facility] LABORATORY Lymphocytes Abs 1.9 0.9 - 3.2 [facility] x10(3)/[facility] LABORATORY Monocytes % 13.8 % [facility] LABORATORY Monocyte Abs 1.1 (H) 0.3 - 0.9 [facility] x10(3)/[facility] LABORATORY Eosinophils % 2.6 % [facility] LABORATORY Eosinophils Abs 0.2 0.0 - 0.4 [facility] x10(3)/[facility] LABORATORY Basophils % 0.8 % [facility] LABORATORY Basophils Abs 0.1 0.0 - 0.1 [facility] x10(3)/[facility] LABORATORY Immature Gran % 0.60 % [...] 0.00 - 0.04 x10(3)/[facility] LABORATORY Specimen Anatomical Collection Method Collection Time Receive d Time (Source) Location / / Volume Laterality Blood 05/20/2022 5:02 AM 5:19 EDT AM EDT Resulting Agency Comment Spec In Lab Edward Rodríguez MD HEMATOLOGY ORDERABLES Performing Organization Address City/State/Z[place] [address] (ABNORMAL) Hemogram (05/20/2022 5:02 AM EDT) Analysis Performed At Patho logist Time Signature WBC 7.8 4.0 - 9.5 [facility] x10(3)/[facility] LABORATORY RBC 3.53 (L) 4.58 - [facility] XIAO 5.54 [facility] x10(6)/[facility] LABORATORY Hemoglobin 11.4 (L) 13.7 - [facility] 16.5 g/dL [facility] LABORATORY Hematocrit 34.3 (L) 40.5 - [facility] XIAO 48.5 % [facility] LABORATORY MCV 97.2 (H) 82.9 - [facility] XIAO 93.[address] [facility] LABORATORY MCH 32.3 (H) 27.5 - [facility] XIAO 32.1 pg [facility] LABORATORY MCHC 33.2 32.0 - [facility] XIAO 35.7 g/dL [facility] LABORATORY Platelets 181 145 - 357 [facility] x10(3)/[facility] LABORATORY RDWSD 46.4 (H) 36.0 - [facility] XIAO 45.0 [facility] LABORATORY RDWCV 13.0 11.4 - [facility] XIAO 13.8 % [facility] LABORATORY MPV 10.4 7.6 - 12.9 [facility] LABORATORY nRBC % Auto 0.0 % [facility] LABORATORY nRBC Abs Auto 0.000 0.000 - [facility] 0.000 [facility] x10(3)/[facility] LABORATORY Specimen Anatomical Collection Method Collection Time Receive d Time (Source) Location / / Volume Laterality Blood 05/20/2022 5:02 AM 2 5:19 EDT AM EDT Resulting Agency Comment Spec In Lab Edward Rodríguez MD HEMATOLOGY ORDERABLES Performing Organization Address City/State/[place] [address] Heparin (unfractionated) Level (05/19/2022 [...] Organization Address City/State/[place] [address] (ABNORMAL) Differential, Automated (05/19/2022 3:26 AM EDT) Patholo gist Method Time Signature Neutrophils % 62.1 % [facility] LABORATORY Neutr Abs (ANC) 4.59 1.70 - [facility] 6.10 [facility] x10(3)/[facility] LABORATORY Lymphocytes % 22.1 % [facility] LABORATORY Lymphocytes Abs 1.6 0.9 - 3.2 [facility] x10(3)/[facility] LABORATORY Monocytes % 13.5 % [facility] LABORATORY Monocyte Abs 1.0 (H) 0.3 - 0.9 [facility] x10(3)/[facility] LABORATORY Eosinophils % 1.3 % [facility] LABORATORY Eosinophils Abs 0.1 0.0 - 0.4 [facility] x10(3)/[facility] LABORATORY Basophils % 0.5 % [facility] LABORATORY Basophils Abs 0.0 0.0 - 0.1 [facility] x10(3)/[facility] LABORATORY Immature Gran % 0.50 % [...] - 0.04 x10(3)/[facility] MAR Y [facility] LABORATORY Specimen Anatomical Collection Method Collection Time Receive d Time (Source) Location / / Volume Laterality Blood 05/19/2022 3:26 AM 2 3:59 EDT AM EDT Resulting Agency Comment Spec In Lab Edward Rodríguez MD HEMATOLOGY ORDERABLES Performing Organization Address City/State/Z[place] [address] (ABNORMAL) Hemogram (05/19/2022 3:26 AM EDT) Analysis Performed At Patho logist Time Signature WBC 7.4 4.0 - 9.5 [facility] x10(3)/[facility] LABORATORY RBC 3.74 (L) 4.58 - [facility] 5.54 [facility] x10(6)/[facility] LABORATORY Hemoglobin 12.1 (L) 13.7 - [facility] 16.5 g/dL [facility] LABORATORY Hematocrit 36.4 (L) 40.5 - [facility] [place] 48.5 % [facility] LABORATORY MCV 97.3 (H) 82.9 - [facility] XIAO 93.1 [facility] LABORATORY MCH 32.4 (H) 27.5 - [facility] [place] 32.1 pg [facility] LABORATORY MCHC 33.2 32.0 - [facility] [place] 35.7 g/dL [facility] LABORATORY Platelets 168 145 - 357 [facility] x10(3)/[facility] LABORATORY RDWSD 46.9 (H) 36.0 - [facility] XIAO 45.0 [facility] LABORATORY RDWCV 13.0 11.4 - [facility] 13[facility] % [facility] LABORATORY MPV 10.5 7.6 - 12.9 [facility] LABORATORY nRBC % Auto 0.0 % [facility] LABORATORY nRBC Abs Auto 0.000 0.000 - [facility] 0.000 [facility] x10(3)/[facility] LABORATORY Specimen Anatomical Collection Method Collection Time Receive d Time (Source) Location / / Volume Laterality Blood 05/19/2022 3:26 AM 2 3:59 EDT AM EDT Resulting Agency Comment Spec In Lab Edward Rodríguez MD HEMATOLOGY ORDERABLES Performing Organization Address City/State/Z[place] [address] TSH (05/18/2022 8:00 PM EDT) P athologist Signature TSH 2.27 0.27 - 4.20 [facility] HAGEN mcIU/mL [facility] LABORATORY Comment: Reference Interval (mcIU/mL): Females: ??First Trimester: 0.23-3.88 ??Second Trimester: 0.22-3.90 ??Third Trimester: 0.44-4.66 Specimen Anatomical Collection Method Collection Time Receive d Time (Source) Location / / Volume Laterality Blood 05/18/2022 8:00 PM 2 8:06 EDT PM EDT Resulting Agency Comment Spec In Lab Fito Summers MD CHEMISTRY ORDERABLES Performing Organization Address City/State/ZIP Code Phon e Number [address] (ABNORMAL) Differential, Automated (05/18/2022 3:34 AM EDT) [facility] Method Time Signature Neutrophils % 67.2 % [facility] LABORATORY Neutr Abs (ANC) 5.89 1.70 - [facility] 6.10 [facility] x10(3)/[facility] LABORATORY Lymphocytes % 17.1 % [facility] LABORATORY Lymphocytes Abs 1.5 0.9 - 3.2 [facility] x10(3)/[facility] LABORATORY Monocytes % 13.6 % [facility] LABORATORY Monocyte Abs 1.2 (H) 0.3 - 0.9 [facility] x10(3)/[facility] LABORATORY Eosinophils % 1.0 % [facility] LABORATORY Eosinophils Abs 0.1 0.0 - 0.4 [facility] x10(3)/[facility] LABORATORY Basophils % 0.6 % [facility] LABORATORY Basophils Abs 0.0 0.0 - 0.1 [facility] x10(3)/[facility] LABORATORY Immature Gran % 0.50 % [...] - 0.04 x10(3)/[facility] MAR Y [facility] LABORATORY Specimen Anatomical Collection Method Collection Time Receive d Time (Source) Location / / Volume Laterality Blood 05/18/2022 3:34 AM 3:48 EDT AM EDT Resulting Agency Comment Spec In Lab Edward Rodríguez MD HEMATOLOGY ORDERABLES Performing Organization Address City/[facility]/ZIP Code Phon e Number [address] (ABNORMAL) Hemogram (05/18/2022 3:34 AM EDT) Analysis Performed At Patho logist Time Signature WBC 8.8 4.0 - 9.5 [facility] x10(3)/[facility] LABORATORY RBC 3.45 (L) 4.58 - [facility] X[facility] 5.54 [facility] x10(6)/[facility] LABORATORY Hemoglobin 11.2 (L) 13.7 - [facility] 16.5 g/dL [facility] LABORATORY Hematocrit 33.0 (L) 40.5 - [facility] 48.5 % [facility] LABORATORY MCV 95.7 (H) 82.9 - [facility] LABORATORY MCH 32.5 (H) 27.5 - [facility] 32.1 pg [facility] LABORATORY MCHC 33.9 32.0 - [facility] 35.7 g/dL [facility] LABORATORY Platelets 130 (L) 145 - 357 [facility] x10(3)/[facility] LABORATORY RDWSD 46.2 (H) 36.0 - [facility] LABORATORY RDWCV 13.2 11.4 - [facility] 13.8 % [facility] LABORATORY MPV 10.8 7.6 - 12.9 [facility] LABORATORY nRBC % Auto 0.0 % [facility] LABORATORY nRBC Abs Auto 0.000 0.000 - [facility] 0.000 [facility] x10(3)/[facility] LABORATORY Specimen Anatomical Collection Method Collection Time Receive d Time (Source) Location / / Volume Laterality Blood 05/18/2022 3:34 AM 3:48 EDT AM EDT Resulting Agency Comment Spec In Lab Edward Rodríguez MD HEMATOLOGY ORDERABLES Performing Organization Address City/State/[place] [address] Heparin (unfractionated) Level (05/18/2022 [...] City/[facility]/[place] [address] Magnesium (05/17/2022 3:33 AM EDT) athologist Signature Magnesium 0.76 0.69 - 1.07 [facility] mmol/L [facility] LABORATORY Specimen Anatomical Collection Method Collection Time Receive d Time (Source) Location / / Volume Laterality Blood Venous Draw / 05/17/2022 3:33 AM 05/17/20 4:05 Unknown EDT AM EDT Resulting Agency Comment Spec In Lab Dottie Hill APRN CHEMISTRY ORDERABLES Performing Organization Address City/[facility]/[place] [address] (ABNORMAL) Basic Metabolic Panel (non-fasting) (05/17/2022 3:33 AM EDT) athologist Signature Glucose Lvl 158 65 - 199 [facility] mg/dL [facility] LABORATORY Comment: Diabetes: >=200 mg/dL plus symp toms BUN 12 10 - 20 mg/dL [facility] LABORATORY Creatinine 0.74 (L) 0.80 - 1.50 mg/dL [facility] LABORATORY Sodium 137 135 - 145 [...] Organization Address City/State/Z[place] [address] (ABNORMAL) Differential, Automated (05/17/2022 3:33 AM EDT) [facility] gist Method Time Signature Neutrophils % 65.5 % [facility] LABORATORY Neutr Abs (ANC) 6.84 (H) 1.70 - [facility] 6.10 [facility] x10(3)/[facility] LABORATORY Lymphocytes % 19.7 % [facility] LABORATORY Lymphocytes Abs 2.1 0.9 - 3.2 [facility] x10(3)/[facility] LABORATORY Monocytes % 13.1 % [facility] LABORATORY Monocyte Abs 1.4 (H) 0.3 - 0.9 [facility] x10(3)/[facility] LABORATORY Eosinophils % 0.6 % [facility] LABORATORY Eosinophils Abs 0.1 0.0 - 0.4 [facility] x10(3)/[facility] LABORATORY Basophils % 0.6 % [facility] LABORATORY Basophils Abs 0.1 0.0 - 0.1 [facility] x10(3)/[facility] LABORATORY Immature Gran % [...] 0.00 - 0.04 x10(3)/[facility] LABORATORY Specimen Anatomical Collection Method Collection Time Receive d Time (Source) Location / / Volume Laterality Blood 05/17/2022 3:33 AM 3:53 EDT AM EDT Resulting Agency Comment Spec In Lab Edward Rodríguez MD HEMATOLOGY ORDERABLES Performing Organization Address City/State/Z[place] [address] (ABNORMAL) Hemogram (05/17/2022 3:33 AM EDT) Analysis Performed At Patho logist Time Signature WBC 10.4 (H) 4.0 - 9.5 [facility] x10(3)/[facility] LABORATORY RBC 3.72 (L) 4.58 - [facility] 5.54 [facility] x10(6)/[facility] LABORATORY Hemoglobin 12.0 (L) 13.7 - [facility] 16.5 g/dL [facility] LABORATORY Hematocrit 36.4 (L) 40.5 - [facility] 48.5 % [facility] LABORATORY MCV 97.8 (H) 82.9 - [facility] XIA[facility] 93.1 [facility] LABORATORY MCH 32.3 (H) 27.5 - [facility]LEYX[facility] 32.1 pg [facility] LABORATORY MCHC 33.0 32.0 - [facility] 35.7 g/dL [facility] LABORATORY Platelets 149 145 - 357 [facility] x10(3)/[facility] LABORATORY RDWSD 48.7 (H) 36.0 - [facility] XIAO 45.0 [facility] LABORATORY RDWCV 13.5 11.4 - [facility] 13.8 % [facility] LABORATORY MPV 10.6 7.6 - 12.9 [facility] LABORATORY nRBC % Auto 0.0 % [facility] LABORATORY nRBC Abs Auto 0.000 0.000 - [facility] 0.000 [facility] x10(3)/[facility] LABORATORY Specimen Anatomical Collection Method Collection Time Receive d Time (Source) Location / / Volume Laterality Blood 05/17/2022 3:33 AM 3:53 EDT AM EDT Resulting Agency Comment Spec In Lab Edward Rodríguez MD HEMATOLOGY ORDERABLES Performing Organization Address City/[facility]/Z[place] [address] (ABNORMAL) Urinalysis Microscopic Exam [...] Organization Address City/State/ZIP Code [place] [address] (ABNORMAL) Urinalysis with reflex Culture (05/16/2022 11:15 PM EDT) Patholo gist Method Time Signature Glucose UA Negative Negative [facility] mg/dL [facility] LABORATORY Protein UA Negative Negative [facility] mg/dL [facility] LABORATORY Bilirubin UA Negative Negative [facility] mg/dL [facility] LABORATORY Comment: Clinical correlation required for positi ve Urine Bilirubin results as false positive may occur with some drugs and d rug related products. If a false positive is suspected a serum total bili quarles should be considered if clinically indicated. Urobilinogen UA Normal Normal mg/dL [facility] LABORATORY pH UA 6.0 5.0 - 8.0 [facility] LABORATORY Blood UA Small (A) Negative mg/dL [facility] LABORATORY Ketones UA Trace (A) Negative mg/dL [facility] LABORATORY Nitrite UA Negative Negative [facility] LABORATORY Leukocytes UA Negative Negative [facility] LABORATORY Appearance UA Clear Clear [facility] LABORATORY Spec [place] UA 1.021 1.005 - 1.030 [facility] LABORATORY Color UA Yellow Yellow [facility] LABORATORY Culture Reflexed No [facility] LABORATORY Specimen Anatomical Collection Method Collection Time Receive d Time (Source) Location / / Volume Laterality Clean Catch 05/16/2022 11:15 05/16/2022 Urine PM EDT 11:30 PM EDT Resulting Agency Comment Spec In Lab Fito Summers MD URINE ORDERABLES Performing Organization Address City/State/Z[place] [address] Heparin (unfractionated) Level (05/16/2022 10:59 PM EDT) P athologist Signature Heparin UFH 0.65 IU/mL [facility] LABORATORY Comment: Specimen drawn more than one [...] City/State/ZIP Code Phon e Number [place] [id number] HOSPITAL LABORATORY Drive XR Chest One View [...] questions please contact the health transitional care nurse that requested your imaging first. [...] questions please contact the health transitional care nurse that requested your imaging first. Fito Summers MD IMG DX ORDERABLES EKG 12 Lead (05/16/2022 8:57 PM EDT) Component Value Ref Range Test Analysis Performed Pathologis t Method Time At Signature Ventricular rate 117 BPM MUSE SYSTEM QRS Duration 112 ms MUSE SYSTEM Q-T Interval 346 ms MUSE SYSTEM QTC Calculated 482 ms MUSE SYSTEM (Bezet) Calculated R [place] -48 degrees MUSE SYSTEM Calculated T [place] 111 degrees MUSE SYSTEM INTERPRETATION Atrial fibrillation [...] MD ECG ORDERABLES Performing Organization Address City/[facility]/ZIP Code Phon e Number MUSE SYSTEM Heparin [...] City/[facility]/ZIP [place] [address] ECHOCARDIOGRAM COMPLETE W CONTRAST (05/16/2022 12:49 PM EDT) P athologist Signature EF 28 HEARTLAB SYSTEM Anatomical Region Laterality Modality Cardiac Other Specimen (Source) Anatomical Collection Method Collection Time Re ceived Time Location / / Volume Laterality 05/16/2022 11:22 AM EDT Narrative 05/16/2022 1:54 PM EDT ?[facility] ? [facility] ?[address] ? [place] [address] ?Voice: ?Fax: ? Echocardiogram Report Name: KOKO ZAMORA ?Study Date: 05/16/2022 11:22 AM ? Patient Location: 3T 0303 B : 1940 ? Height: 67.5 in ? Account: [id number] Age: 81 yrs ? Weight: 176 lb [...] and LV systolic dysfunction are new. Procedure Complete-[id number]. Image enhancement Optiso n was used for [...] note [place] [address] Voice: Fax: Echocardiogram Report Name: KOKO ZAMORA Study Date: 05/2022 11:22 AM Patient Location: [address] [place] [address] : 1940 Height: 67.5 in Account: [id number] Age: 81 yrs Weight: 176 lb Gender: [...] and LV systolic dysfunction are new. Procedure Complete-[id number]. Image enhancement Optiso n was used for [...] Neutr Abs (ANC) 9.11 (H) 1.70 - [facility] 6.10 [facility] x10(3)/[facility] LABORATORY Lymphocytes % 9.4 % [facility] LABORATORY Lymphocytes Abs 1.1 0.9 - 3.2 [facility] x10(3)/[facility] LABORATORY Monocytes % 10.9 % [facility] LABORATORY Monocyte Abs 1.3 (H) 0.3 - 0.9 [facility] x10(3)/[facility] LABORATORY Eosinophils % 0.0 % [facility] LABORATORY Eosinophils Abs 0.0 0.0 - 0.4 [facility] x10(3)/[facility] LABORATORY Basophils % 0.3 % [facility] LABORATORY Basophils Abs 0.0 0.0 - 0.1 [facility] x10(3)/[facility] LABORATORY Immature Gran % [...] 0.00 - 0.04 x10(3)/[facility] LABORATORY Specimen Anatomical Collection Method Collection Time Receive d Time (Source) Location / / Volume Laterality Blood 05/16/2022 3:01 AM 3:36 EDT AM EDT Resulting Agency Comment Spec In Lab Erin Garza MD HEMATOLOGY ORDERABLES Performing Organization Address City/State/ZIP Code Phon e Number [place] [id number] HOSPITAL LAB[address]ATORY [address] (ABNORMAL) Hemogram (05/16/2022 3:01 AM EDT) Analysis Performed At Patho logist Time Signature WBC 11.6 (H) 4.0 - 9.5 [facility] x10(3)/[facility] LABORATORY RBC 3.62 (L) 4.58 - [facility]54 [facility] x10(6)/[facility] LABORATORY Hemoglobin 12.0 (L) 13.7 - [facility] 16.5 g/dL [facility] Hematocrit 35.3 (L) 40.5 - [facility] 48.5 % [facility] LABORATORY MCV 97.5 (H) 82.9 - [facility] [address] [facility] LABORATORY MCH 33.1 (H) 27.5 - [facility] 32.1 pg [facility] LABORATORY MCHC 34.0 32.0 - [facility] 35.7 g/dL [facility] LABORATORY Platelets 151 145 - 357 [facility] x10(3)/[facility] RDWSD 47.6 (H) 36.0 - [facility] 45.0 [facility] RDWCV 13.3 11.4 - [facility] 13.8 % [facility] LABORATORY MPV 10.5 7.6 - 12.9 [facility] LABORATORY nRBC % Auto 0.0 % [facility] LABORATORY nRBC Abs Auto 0.000 0.000 - [facility] 0.000 [facility] x10(3)/[facility] LABORATORY Specimen Anatomical Collection Method Collection Time Receive d Time (Source) Location / / Volume Laterality Blood 05/16/2022 3:01 AM 2 3:36 EDT AM EDT Resulting Agency Comment Spec In Lab Erin Garza MD HEMATOLOGY ORDERABLES Performing Organization Address City/State/ZIP Code Phon e Number [address] Phosphorus (05/16/2022 3:01 AM EDT) P athologist Signature Phosphorus 3.7 2.5 - 4.5 [facility] mg/dL [facility] LABORATORY Specimen Anatomical Collection Method Collection Time Receive d Time (Source) Location / / Volume Laterality Blood 05/16/2022 3:01 AM 2 3:36 EDT AM EDT Resulting Agency Comment Spec In Lab Fito Summers MD CHEMISTRY ORDERABLES Performing Organization Address City/State/ZIP Code Phon e Number [address] Magnesium (05/16/2022 3:01 AM EDT) P athologist Signature Magnesium 0.77 0.69 - 1.07 [facility] mmol/L [facility] LABORATORY Specimen Anatomical Collection Method Collection Time Receive d Time (Source) Location / / Volume Laterality Blood 05/16/2022 3:01 AM 2 3:36 EDT AM EDT Resulting Agency Comment Spec In Lab Fito Summers MD CHEMISTRY ORDERABLES Performing Organization Address City/[facility]/ZIP Code Phon e Number [address] (ABNORMAL) Basic Metabolic Panel (non-fasting) (05/16/2022 3:01 AM EDT) P athologist Signature Glucose Lvl 222 (H) 65 - 199 [facility] mg/dL [facility] LABORATORY Comment: Diabetes: >=200 mg/dL plus symp toms BUN 12 10 - 20 mg/dL [facility] LABORATORY Creatinine 0.66 (L) 0.80 - 1.50 mg/dL [facility] LABORATORY Sodium 138 135 - 145 [...] Organization Address City/State/Z[place] [address] (ABNORMAL) BLOOD GAS 2 ARTERIAL (05/15/2022 3:33 PM EDT) Analysis Performed At Patho logist Time Signature pH Art 7.33 (L) 7.35 - [facility] 7.45 [facility] LABORATORY pCO2 Art 41 35 - 45 [facility] mmHg [facility] LABORATORY pO2 Art 131 (H) 85 - 104 [facility] LABORATORY HCO3 Art 21.1 20.0 - [facility] 26.0 [facility] mmol/L [facility] LABORATORY BE Art -4.8 (L) -3.0 - 3.0 [facility] mmol/L [facility] LABORATORY Hgb Blood Gas 13.4 (L) 13.7 - [facility] 16.5 g/dL [facility] O2HB Art 96.9 94.0 - [facility] 97.0 % [facility] LABORATORY COHB Art 1.4 % [facility] [...] Organization Address City/State/Z[place] [address] (ABNORMAL) BLOOD GAS 2 ARTERIAL (05/15/2022 2:06 PM EDT) Analysis Performed At Patho logist Time Signature pH Art 7.39 7.35 - [facility] 7.45 [facility] LABORATORY pCO2 Art 35 35 - 45 [facility] mmHg [facility] LABORATORY pO2 Art 135 (H) 85 - 104 [facility] LABORATORY HCO3 Art 20.8 20.0 - [facility] 26.0 [facility] mmol/L [facility] LABORATORY BE Art -4.2 (L) -3.0 - 3.0 [facility] mmol/L [facility] LABORATORY Hgb Blood Gas 14.5 13.7 - [facility] 16.5 g/dL [facility] O2HB Art 97.2 (H) 94.0 - [facility] 97.0 % [facility] LABORATORY COHB Art 1.2 % [place] [...] City/[facility]/[place] [address] (ABNORMAL) Prothrombin Time (05/15/2022 12:30 PM EDT) P athologist Signature PT 12.9 (H) 9.4 - 12.5 [facility] LABORATORY INR 1.1 [facility] DO HEMATOLOGY ORDERABLES Performing Organization Address City/[facility]/ZIP [facility] [place] [address] (ABNORMAL) APTT (05/15/2022 12:30 [...] Organization Address City/State/[place] [address] Gold Tube HOLD (05/15/2022 12:20 PM EDT) P athologist Signature Gold Hold Sample in [facility]. [facility] LABORATORY Specimen Anatomical Collection Method Collection Time Receive d Time (Source) Location / / Volume Laterality Blood No Charge / 05/15/2022 12:20 05/15/2022 Unknown PM EDT 12:20 PM EDT Lc Tan Kimberly TRIPP CHEMISTRY ORDERABLES Performing Organization Address City/[facility]/[place] [address] Type and Screen Validity (05/15/2022 12:00 PM EDT) [facility] gist Method Time Signature T&S only valid [facility] LABORATORY Comment: This Type and Screen result is only valid at the [facility] Specimen Anatomical Collection Method Collection Time Receive d Time (Source) Location / / Volume Laterality Blood 05/15/2022 12:00 05/15/2022 PM EDT 12:17 PM EDT Resulting Agency Comment Spec In Lab Lc Harris PA BLOOD BANK ORDERABLES Performing Organization Address City/[facility]/ZIP Code Phon e Number [address] ABORH Recheck Status (05/15/2022 12:00 PM EDT) [facility] gist Method Time Signature ABORH Recheck Order Placed [facility] K Order [facility] LABORATORY ABORH Type Complete [facility] LABORATORY Specimen Anatomical Collection Method Collection Time Receive d Time (Source) Location / / Volume Laterality Blood 05/15/2022 12:00 05/15/2022 PM EDT 12:17 PM EDT Resulting Agency Comment Spec In Lab Lc Tan Kimberly PA BLOOD BANK ORDERABLES Performing Organization Address City/State/[place] [address] CK (05/15/2022 12:00 PM EDT) P athologist Signature CK, Total 87 0 - 200 [facility] unit/L [facility] LABORATORY Specimen Anatomical Collection Method Collection Time Receive d Time (Source) Location / / Volume Laterality Blood Venous Draw / 05/15/2022 12:00 05/15/2022 Unknown PM EDT 12:19 PM EDT Resulting Agency Comment Spec In Lab Fito Summers MD CHEMISTRY ORDERABLES Performing Organization Address City/State/[place] [address] Antibody screen (05/15/2022 12:00 PM EDT) [facility] Method Time Signature Ab Screen Negative [facility] LABORATORY Expires at 05/18/2022 [facility] 2359 on: [facility] LABORATORY Specimen Anatomical Collection Method Collection Time Receive d Time (Source) Location / / Volume Laterality Blood 05/15/2022 12:00 05/15/2022 PM EDT 12:17 PM EDT Resulting Agency Comment Spec In Lab Lc TRIPP BLOOD BANK ORDERABLES Performing Organization Address City/[facility]/ZIP Code Phon e Number [address] ABO/Rh Typing (05/15/2022 12:00 [...] City/[facility]/[place] [address] (ABNORMAL) Differential, Automated (05/15/2022 12:00 PM EDT) [facility] Method Time Signature Neutrophils % 79.4 % [facility] LABORATORY Neutr Abs (ANC) 7.49 (H) 1.70 - [facility] 6.10 [facility] x10(3)/[facility] LABORATORY Lymphocytes % 11.3 % [facility] LABORATORY Lymphocytes Abs 1.1 0.9 - 3.2 [facility] x10(3)/[facility] LABORATORY Monocytes % 7.8 % [facility] LABORATORY Monocyte Abs 0.7 0.3 - 0.9 [facility] x10(3)/[facility] LABORATORY Eosinophils % 0.6 % [facility] LABORATORY Eosinophils Abs 0.1 0.0 - 0.4 [facility] x10(3)/[facility] LABORATORY Basophils % 0.6 % [facility] LABORATORY Basophils Abs 0.1 0.0 - 0.1 [facility] x10(3)/[facility] LABORATORY Immature Gran % 0.30 % [place] [...] - 0.04 x10(3)/[facility] MAR Y [facility] LABORATORY Specimen Anatomical Collection Method Collection Time Receive d Time (Source) Location / / Volume Laterality Blood 05/15/2022 12:00 05/15/2022 PM EDT 12:19 PM EDT Resulting Agency Comment Spec In Lab Lc TRIPP HEMATOLOGY ORDERABLES Performing Organization Address City/State/ZIP [place] [address] (ABNORMAL) Hemogram (05/15/2022 12:00 PM EDT) Analysis Performed At Patho logist Time Signature WBC 9.4 4.0 - 9.5 [facility] x10(3)/[facility] LABORATORY RBC 4.48 (L) 4.58 - [facility] 5.54 [facility] x10(6)/[facility] LABORATORY Hemoglobin 14.5 13.7 - [facility] 16.5 g/dL [facility] LABORATORY Hematocrit 42.4 40.5 - [facility] 48.5 % [facility] LABORATORY MCV 94.6 (H) 82.9 - [facility] 93.[address] [facility] LABORATORY MCH 32.4 (H) 27.5 - [facility] 32.1 pg [facility] LABORATORY MCHC 34.2 32.0 - [facility] 35.7 g/dL [facility] LABORATORY Platelets 209 145 - 357 [facility] x10(3)/[facility] LABORATORY RDWSD 45.9 (H) 36.0 - [facility] LABORATORY RDWCV 13.1 11.4 - [facility] 13.8 % [facility] LABORATORY MPV 10.5 7.6 - 12.[address] [address] [facility] LABORATORY nRBC % Auto 0.0 % [facility] LABORATORY nRBC Abs Auto 0.000 0.000 - [facility] 0.000 [facility] x10(3)/[facility] LABORATORY Specimen Anatomical Collection Method Collection Time Receive d Time (Source) Location / / Volume Laterality Blood 05/15/2022 12:00 05/15/2022 PM EDT 12:19 PM EDT Resulting Agency Comment Spec In Lab Lc TRIPP HEMATOLOGY ORDERABLES Performing Organization Address City/State/Z[place] [address] (ABNORMAL) Basic Metabolic Panel (non-fasting) (05/15/2022 12:00 PM EDT) P athologist Signature Glucose Lvl 203 (H) 65 - 199 [facility] mg[facility]dL [facility] LABORATORY Comment: Diabetes: >=200 mg/dL plus symp toms BUN 16 10 - 20 mg/dL [facility] LABORATORY Creatinine 0.84 0.80 - 1.50 mg/dL [facility] LABORATORY Sodium 141 135 - 145 [...] Organization Address City/State/Z[place] [address] documented in this encounter [...] mg = 1.8 mg/kg/dose ? 67.7 kg [place] weight), Intravenous, at 11.3 mL/hr, EVERY 3 [...] mg = 2.4 mg/kg/dose ? 67.7 kg [place] weight), Intravenous, at 15 mL/hr, ONCE, 1 [...] mg = 0.24 mg/kg/dose ? 67.7 kg [place] weight), Oral, 2 TIMES DAILY, 2 doses, [...] mg = 0.48 mg/kg/dose ? 67.7 kg [place] weight), Oral, 2 TIMES DAILY, 2 doses, [...] mg = 0.12 mg/kg/dose ? 67.7 kg [place] weight), Oral, 2 TIMES DAILY, 2 doses, First dose on [facility] 05/18/22 at 0900, Last dose on [facility] 05/18/22 at 2100, Hold for [...] ([facility] Unhold - Provider: Admin Adt)2005 [...] 10 mL 1903 (Given - Provider: Cassy Schutlz RN - Comment: given by other) 10 mL, Oral, 3 TIMES DAILY PRN, Starting on Fri05/20/22 at 1850, Until Fri05/21/22 at 1743, Heartburn, Routine aspirin chewable tablet (CANCELED) 1745 (Given - Provider: Flavia Schuler RN) ONCE PRN, Starting on Fri05/20/22 at 174 6, Until Fri05/20/22 at 1842, Intra- Operative (Intra-Procedure), Routine bisacodyL (Dulcolax) suppository 10 mg 1 751 ([facility] Hold - Provider: Admin [...] midazolam (pf) (Versed) (1 mg/mL) multi-dose injection ([facility]) 1713 (Given - Provider: Abundio Servin [...]
Routine documented in this encounter Care Teams Cane Weigher Helper Relationship Specialty Start Date End Date Bobby Das MD PCP - General 10/02/[address] [place] [address] [place] [phone] documented as of this encounter
--- OUTSIDE RECORDS SUMMARY | 2022-08-02 09:55 | XMS_ITS | Encounter Summary ---
:1940 [place] [address] Care Team Providers Name Role Phone Bobby Das MD Primary Care Provider Reason for Visit Auth/Cert Specialty Diagnoses / Procedures Referred By Contact Refer red To Contact Diagnoses Limb ischemia LLE thrombus Fito Summers MD [facility] [place] [address] Referral ID Status Reason Start Date Expiration Date Visits Requ ested Visits Authorized [id number] 1 1 Encounter Details Date Type Department Care Team Description 05/15/2022 Anesthesia Event Main Operating Room Cari Briggs MD [facility] [place] [address] [facility] Duong Aguillon CRNA [facility] [place] [address] [place] [address] Anesthesia Record Procedure Summary Procedure Name [...] Amb ros, Andrea L, DION fossa), left; [id number] catheter system; 18 gauge; OSH; site care per policy/procedure, site symptomatic, removed per policy/procedure, catheter/device intact; 05/16/22; 1117 PIV 05/15/22; 1204; median 05/15/22 1204 by 05/16/22 0738 by cubital vein (antecubital Marcia Dimas RN Gon zalez, Adriana, fossa), right; RN jtnt-ckm-[id number] catheter system; 18 gauge; OSH; 05/16/22; 0738 [...] Procedure Summary Date: 05/15/22 Room / Location: [facility] OR [address] [place] [address] MAIN OR Anesthesia Start: 1320 Anesthesia Stop: 1633 Procedure: EMBOLECTOMY OR THROMBECTOMY, FEMOROPOPLITEAL, AORTOILIAC ARTERY BY LEG INCISION [facility] (Left ) Diagnosis: (Acute Limb Ischemia) Surgeons: Fito Summers MD Responsible Provider: Cari Ventura MD Anesthesia Type: general ASA Status: 3 - Emergent All Anesthesia Providers: Anesthesiologist: Cari Ventura MD SPACECRAFT SYSTEMS ENGINEER: Torres Aguilar CRNA Vitals Value Taken Time BP 108/69 05/15/22 1715 Temp 36.3 ??C (97.3 ??F) 05/15/22 1633 Pulse 110 05/15/22 1719 Resp 16 05/15/22 1719 SpO2 89 % 05/15/22 1719 Pain Level Vitals shown include unvalidated device data. 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 Plan discussed with SPACECRAFT SYSTEMS ENGINEER. Anesthesia Screening documented in this encounter Plan of Treatment Upcoming Encounters Date Type Specialty Care Team Description 08/08/2022 Office Visit Gastroenterology Negra Collins MD [facility] GASTROENTEROLOGY DEPT [place] 0[address] (Wo rk) 09/05/2022 Appointment Cardiology Trinity Reid MD [facility] CARDIOLOGY [place], [place] 0375 (Wo rk) 09/05/2022 Office Visit Cardiology Trinity Reid MD [facility] CARDIOLOGY [place], [place] 0375 (Wo rk) documented as of [...] Routine documented in this encounter Care Teams Silver Miner Blasting Relationship Specialty Start Date End Date Bobby Das MD PCP - General 10/02/[address] [place] [address] [place] [phone] documented as of this encounter
--- OUTSIDE RECORDS SUMMARY | 2022-08-02 09:55 | XMS_ITS | Encounter Summary ---
:1940 [place] [address] Care Team Providers Name Role Phone Bobby Das MD Primary Care Provider Reason for Visit Reason Comments Left Leg Pain Auth/Cert Specialty Diagnoses / Procedures Referred By Contact Refer red To Contact Diagnoses Limb ischemia LLE thrombus Fito Summers MD [facility] [place] [address] Referral ID Status Reason Start Date Expiration Date Visits Requ ested Visits Authorized [id number] 1 1 Encounter Details Date Type Department Care Team Description 05/20/2022 Surgery Guidance Consultant Abundio Mcguire , CARDIAC CATHETERIZATION [facility] [place] [address] CARDIOLOGY [phone] [place], [place] [address] (Wo rk) Social History Tobacco [...] onset Afib who presents in transfer from [facility] with acute limb ischemia of the [...] emergently went to the OR for L RIVETER AUTOMOBI[employer] BRAKES transverse arteriotomy and primary repair, thromboembolectomy of L SFA/PFA/RIVETER AUTOMOBILE BRAKES, reperfusion venous drainage for 250 cc, and [...] Discharge Condition: Good Discharge to: Home with [address] [address] Future Appointments and Orders Future Appointments and Orders Future Appointments Provider Department Dept Phone 05/23/2022 10:30 AM Loretta Cohen MD Dermatology at [facility] Arrive at: [employer] [address] [place] [address] 06/07/2022 1:30 PM Gail Rae APRN Vascular Surgery at [facility] Arrive at: [employer] [address] [phone] 06/13/2022 7:30 AM Edson Lagos [place] Vascular Lab at [facility] Arrive at: [employer] Area 06/13/2022 8:00 AM Fito Summers MD Vascular Surgery at [facility] Arrive at: [employer] Area 3V [phone] 06/13/2022 10:00 AM Alan Reid MD Cardiology at [facility] Arrive at: [employer] Area [phone] Future Orders Complete By Expires Ziopatch 48 Hrs-15 Days [RYF0941 CPT(R)] 05/21/2022 11/20/2022 Process Instructions: Scheduling Instructions: Comments: Questions: Does the patient have a pacemaker? If yes provide HI/LO settings: Apply for 7 or 14 days?: 7 Where will study be performed?: [facility] Clinics JOSSELYN, legs, multiple levels [VAS8 Custom] 06/21/2022 (Approximate) 12/21/2022 Process Instructions: There is no in-house vascular brine room laborer available on weeknights (5pm-8am), weekends, or holidays. IF THIS IS A REQUEST FOR AN EMERGENT STUDY DURING THOSE HOURS, please have the senior provider responsible for the patient page the Vascular Surgery Fellow/Senior Resident personnel arbitrator to discuss options. Scheduling Instructions: Questions: Indication [...] Zamora for admission to Home Health. [address] [place] [phone] (home) Date of : 1940 Inpatient DOCUMENTATION FOR VNA SERVICES (INCLUDING THOSE PATIENTS WITH MEDICARE COVERAGE REQUIRING HOME VNA SERVICES AND/OR HOSPICE SERVICES) PATIENT'S LOCATION: Koko Zamora [address] [place] [phone] (home) Cell: No relevant phone numbers on file. Technical Support Associate's Name: Koko In discussion with the attending physician, it is certified that this patient is under their care and that they, or a Nurse Practitioner,Clinical Nurse specialist or Physician Wallpaper Hanger who is working directly with them, had [...] for managing ADL's. HOME HEALTH CARE AGENCY: [facility]. [address] [place] [address] Start of care: Within 24 to 48 [...] obtained from this patient'sPCP: Bobby Das MD [address] [place] [address] [place] [address] All VNA agencies which cover the [...] For any problems or questions please call [phone] For issues on weeknights after 5pm and weekends please call [phone] and ask for the Vascular Fellow personnel arbitrator. JOSEE Santiago Vascular Surgery 05/21/2022 documented in [...] For any problems or questions please call [phone] For issues on weeknights after 5pm and weekends please call [phone] and ask for the Vascular Fellow personnel arbitrator. documented in this encounter Medications at Time [...] 04/12/20 21 (FLONASE) 50 mcg/actuation Nare route Grassflat, Suspension daily as needed. fluorouraciL (EFUDEX) 5 [...] onset Afib who presents in transfer from [facility] with acute limb ischemia of the [...] status, full code. JOSEE Santiago 05/21/2022 Pager: [phone] Brannon Isaacs, PT - 05/21/2022 10:35 AM [...] plan as stated. Time IN / OUT: 0453-1226 Total Minutes, Physical Therapy: 25 Billing Code: 2 BOSTON Isaacs DPT Pager: [phone] Physical Therapy Inpatient Rehabilitation Department Wellington Jean MD - 05/21/2022 10:16 AM EDT Images from the original note were not included. Brief Cardiology Consult: Koko aZmora is a 81 y.o. gentleman with a [...] of care per Dr. Mcnamara (social media content manager). Please refer to her note above [...] limb ischemia (thromboembolic) and he is a chcf smoker (1/2 ppd, recommend nicotine patch). His [...] of care per Dr. Mcnamara (social media content manager). Please refer to her note above [...] onset Afib who presents in transfer from [facility] with acute limb ischemia of the [...] management following Dottie Hill APRN 05/20/2022 Pager: [phone] Laney Atkins RN - 05/20/2022 1:14 AM EDT Pt Koko transferred to room from [facility]. A&Ox4, oriented to room and [...] onset Afib who presents in transfer from [facility] with acute limb ischemia of the LLE. ?? The patient had sudden pain starting at 630 05/15/22, he presented [facility] where he was placed on heparin. [...] management following Dottie Hill APRN 05/19/2022 Pager: [phone] Emily Sauceda RN - 05/19/2022 6:28 AM EDT OUTCOME EVALUATION NOTE: OUTCOME SUMMARY: Patient AOx4, VSS on RA. Afib on tele. HR controlled w/ PRN metop, given x2. Denies CP, SOB, n/v. See flowsheets for NVC. Dressings to LLE CDI, prevena WV to groin intact. Voiding to urinal. LBM FINANCIAL ECONOMIST, patient stating he will maybe try the [...] adequately without difficulty to bedside urinal. LBM FINANCIAL ECONOMIST. Up to chair this AM with nursing staff. Worked with PT, tolerated well. Diet changed to regular at 1800.Plan is for cardiac cath on Friday. PLAN MOVING FORWARD: Bleeding precautions Pain management neurovascular checks PT/OT parking lot laborer INDIVIDUALIZED FALL PREVENTION INTERVENTIONS: Patient-specific fall [...] onset Afib who presents in transfer from [facility] with acute limb ischemia of the [...] mL Intravenous BID ??? PHENobarbitaL 0.12 mg/kg/dose (Austerlitz) Oral BID ??? thiamine 100 mg Oral [...] management following Dottie Hill APRN 05/18/2022 Pager: [phone] Brnanon Isaacs, PT - 05/18/2022 10:00 AM EDT [...] Chisholm MD [facility] INTERVENTIONL RAD ??? PRO EMBLC/THRMBC FEMORAL POPLITEAL AORTO-ILIAC ARTERY Left 05/15/2022 EMBOLECTOMY OR THROMBECTOMY, FEMOROPOPLITEAL, AORTOILIAC ARTERY BY LEG INCISION (WRVU 19.48) performed by Fito Summers MD at [facility] MAIN OR Social History: Pt lives [...] in this evaluation. Time IN / OUT: 6167-2801 Total Minutes, Physical Therapy: 30 Billing Code: Basilio Isaacs, PT Pager: [phone] Physical Therapy Inpatient Rehabilitation Department Emily Sauceda RN - 05/18/2022 4:34 AM EDT OUTCOME EVALUATION NOTE: OUTCOME SUMMARY: Patient AOx4, VSS on 2LNC. Afib on tele. HR above 120, MD aware, PRN IV metop given x1, HR returned to 90's-low 100's. Denies CP, SOB, n/v. See flowsheets for NVC. Dressings to LLE CDI, prevena WV to groin intact. Voiding to urinal. LBM FINANCIAL ECONOMIST. Heparin gtt therapeutic. Pain controlled. Patient sleeping [...] adequately without difficulty to bedside urinal. LBM FINANCIAL ECONOMIST. Patient not OOB this shift. Currently NPO awaitingprocedure in ship laborer. PLAN MOVING FORWARD: Bleeding precautions Pain management neurovascular checks PT/OT NPO for ship laborer INDIVIDUALIZED FALL PREVENTION INTERVENTIONS: Patient-specific fall [...] the Emergency Department as a transfer from [facility] with left lower extremity limb ischemia. He went to [facility] and was startedon heparin and transferred to [facility] for evaluation by vascular surgery [...] he will will be going to the ship laborer for evaluation. Will defer PT eval at present but will see as ordered post cardiac catheritizaton. Social Hx:Pt lives with his Ursula in [place], [place] in a 2 level home in [...] WBAT LLE LISBET HERMAN PT Pager # [phone] In-Pt Rehab Medicine Dottie Hill APRN - 05/17/2022 7:42 AM EDT Vascular Surgery Progress Note Koko Zamora is a 81 y.o. male with w new onset Afib who presents in transfer from [facility] with acute limb ischemia of the [...] mL Intravenous BID ??? PHENobarbitaL 0.24 mg/kg/dose (Austerlitz) Oral BID Followed by ??? [START ON 05/18/2022] PHENobarbitaL 0.12 mg/kg/dose (Austerlitz) Oral BID ??? thiamine 100 mg Oral [...] management following Dottie Hill APRN 05/17/2022 Pager: [phone] Sary Dos Santos, RN - 05/17/2022 12:16 [...] onset Afib who presents in transfer from [facility] with acute limb ischemia of the [...] mL Intravenous BID ??? PHENobarbitaL 0.48 mg/kg/dose (A[place]litz) Oral BID Followed by ??? [START ON 05/17/2022] PHENobarbitaL 0.24 mg/kg/dose (Austerlitz) Oral BID Followed by ??? [START ON 05/18/2022] PHENobarbitaL 0.12 mg/kg/dose (Austerlitz) Oral BID ??? thiamine 100 mg Oral [...] management following Edward Rodríguez MD 05/16/2022 Pager: [phone] Sary Dos Santos RN - 05/16/2022 12:52 [...] met 2129 Hand off to DION Ramirez lansing documented in this encounter H&P Notes Kerry [...] onset Afib who presents in transfer from [facility] with acute limb ischemia of the [...] MD [facility] INTERVENTIONL RAD Social Hx: Social History [...] Refill ??? fluticasone propionate (FLONASE) 50 mcg/actuation Grassflat, Suspension as needed. ??? fluorouraciL (EFUDEX) 5 [...] and consented. Tim Chicas MD 05/15/2022 Pager: [phone] documented in this encounter ED Notes Lc Harris PA - 05/15/2022 1:20 PM EDT ED Provider Note HPI: Koko Zamora is a 81 y.o. male with history of atrial fibrillation not on anticoagulation, and GI bleeding who presents to the Emergency Department as a transfer from [facility] with left lower extremity limb ischemia. Patient says that the symptoms started roughly 630 this morning when he developed severe pain in his left lower extremity. He went to [facility] and was started on heparin and transferred to [facility] for evaluation by vascular surgery. [...] lower extremity earlier today and went to [facility] where it was determined that he had ischemia of the left lower extremity. Vascular surgery [facility] was contacted and he was [...] in an outpatient cardiac rehabilitation program at [facility] was discussed. Patient agrees to a referral to this program. Timing will depend on his recovery from Vascular surgery. He is going home w/VNA PT. I gave him the brochure for the program at [facility] for future reference. Care Management Discharge [...] information for follow-up [facility], [place] [address] [place] [address] Transportation: family or friend will provide Functional [...] Type: *No Product type* / Secondary Insurance: [facility] Prescription Coverage: Yes This plan was formulated with input from patient and team. All are in agreement with plan. IP RS has communicated with Moon - for initial IMM. Shawn López RN (Jonas) RN/CM - Cellphone: [phone] Pager: [phone] Covering Service RN/CM Plan of Care - [...] catheterization, transferred in hospital bed accompanied by Guidance Consultant RN, remains on telemetry monitoring. Heparin [...] Type: *No Product type* / Secondary Insurance: [facility] Last Physical Therapy Recommendation: home [...] Office of Care Management letter from the Service Desk Team Lead pertaining to rehab referrals. ?? provide a letter describing our affiliations within the [facility] and educate about their right to choose where referrals are sent. ?? provide a list of Home Health Agencies / Durable Medical Equipment vendors which serve their preferred geographic area. ?? provided patient with [facility] Star Quality Rating handout. They have requested referrals to: [facility]. [address] [place] [address] Note routed to a Skilled Helper who will communicate referrals to facilities and provide any required information. Transportation: family or friend will provide Barriers to discharge: None Plan going forward: Patient is going for a cardiac cath today and plan will come from there. Patientwas recently seen by PT and they recommend VNA at time of discharge. [facility] was routed and pendedat this time. Care Management will continue to follow and assist with discharge planning and coordination of care as indicated. Anticipated Date of Discharge: 05/21/2022 Nataly RICHMOND RN Phone: [phone] Pager: [phone] Plan of Care - Laney Atkins RN [...] [facility] [place] [address] INPATIENT CARDIOLOGY CONSULT NOTE Date of Consultation: [...] LLE pain on 05/15 and presented to [facility], where he was started on heparin and [...] Marshall MD [facility] INTERVENTIONL RAD IR VERTEBROPLASTY LUMBAR MULTIPLE LEVELS 07/20/2019 IR Vertebroplasty Lumbar Multiple Levels 07/20/2019 Bobby Marshall MD [facility] INTERVENTIONL RAD IR VERTEBROPLASTY THORACIC SINGLE LEVEL 10/25/2020 IR Vertebroplasty Thoracic Single Level 10/25/2020 Matt Chisholm MD [facility] INTERVENTIONL RAD PRO EMBLC/THRMBC FEMORAL POPLITEAL AORTO-ILIAC ARTERY Left 05/15/2022 EMBOLECTOMY OR THROMBECTOMY, FEMOROPOPLITEAL, AORTOILIAC ARTERY BY LEG INCISION (WRVU 19.48) performed by Fito Summers MD at [facility] MAIN OR Allergies Allergen Reactions Aspirin Other (See Comments) GI bleed Out-Patient Medications: Medications Prior to Admission Medication Sig Dispense Refill Last Dose fluorouraciL (EFUDEX) 5 % Cream daily. CRESTOR 40 mg Tablet Take 40 mg by mouth daily. fluticasone propionate (FLONASE) 50 mcg/actuation Grassflat, Suspension as needed. ascorbic acid, vitamin C, [...] 5 mL Intravenous BID PHENobarbitaL 0.24 mg/kg/dose (Austerlitz) Oral BID Followed by [START ON 05/18/2022] PHENobarbitaL 0.12 mg/kg/dose (Austerlitz) Oral BID thiamine 100 mg Oral Daily folic acid 1,000 mcg Oral Daily multivitamin with minerals 1 tablet Oral Daily heparin (porcine) infusion 1,200 Units/hr (05/17/22 2107) Family History: No family history on file. [...] ED to Hosp-Admission (Current) from 05/15/[address] [place] [address] Office Visit from 04/17/2021 in Pain and [...] continue to follow Anne-Marie Larson MD Pager [phone] Clinic: [phone] 05/17/22 6:22 PM Initial Assessments - Ifrah [...] [facility] must abide by [place] law. The hierarchy [...] toilet seat Home Address confirmed as: [address] [place] [phone] Social & Family Supports: All names listed below confirmed with patient as Incorrect. Will notify toni to correct. Wifes address is same as and phone is [phone]. Extended Emergency Contact Information Primary Emergency Contact: Ursula Zamora Address: [address] [place] [address] [address] [place] [address] [facility] Relation: Spouse Current Care Provided by: [...] Type: *No Product type* / Secondary Insurance: [facility] Prescription Coverage: Yes Preferred Pharmacy: [id number] - [place], [place] - [address] [facility] [address] [place] [address] [id number] - [place], [place] - [address] [facility] [address] [facility] [address] [place] Status: Patient is a : unable to assess Primary Care Provider: Bobby Das MD [phone] Patient/Caregiver Goals of Treatment: to walk again Potential Needs for Transition of Care: none noted per 05/16 IDR Transportation: family will provide Transportation Anticipated: family or friend will provide Concerns to be Addressed: no discharge needs identified Assessment: Patient is admitted to vascular surg service for left lower extremity limb ischemia Plan: Per PT OT recommendations . Has used manetch in the past. A member of the Care Management team will continue to monitor progress, follow for continuity of care and assist with transition of care planning. Ifrah Bell RN BSN Wall ManPalliative Nurse of Care Management Pager [phone] Brief Op Note - Erin Garza MD - 05/15/2022 5:04 PM EDT Brief Operative Note Patient Name: Koko Zamora : [id number] MR#: [id number] Case Date: 05/15/2022 Surgeon: Surgeon(s) and Role: [...] Operative Note Patient Name: Koko Zamora : [id number] MR#: [id number] Case Date: 05/15/2022 Surgeon: Surgeon(s) and Role: [...] and the skin was closed reapproximated with wnidy. The groin incision was dressedwith a prevena [...] MD [facility] DR GASTROENTEROLOGY DEPT [place], [place] [address] (Wo rk) 09/05/2022 Appointment Cardiology Trinity Reid MD [facility] CARDIOLOGY [place], [place] [address] (Wo rk) 09/05/2022 Office Visit Cardiology Trinity Reid MD [facility] CARDIOLOGY [place], [place] [address] (Wo rk) Scheduled Referrals [...] Value Ref Test Analysis Performed At [facility] Range Method Time Signature VB Text Department: Vascular Surgery Lab VASCUBASE Report Patient: [id number] (KOKO ZAMORA) CPT: 75608 Referring Physician: FITO SUMMERS ?? Phone: Indications: s/p L RIVETER AUTOMOBILE BRAKES endart. Diabetes mellitus: no Findings: Right ?Pressure [...] P athologist Signature Heparin UFH 0.42 IU/mL [facility] LABORATORY Comment: Heparin (anti-Xa) levels [...] Organization Address City/State/[place] [address] Differential, Automated (05/21/2022 6:15 AM EDT) P athologist Signature Neutrophils % 58.8 % [facility] LABORATORY Neutr Abs (ANC) 3.97 1.70 - [facility] 6.10 [facility] x10(3)[facility] LABORATORY Lymphocytes % 25.2 % [facility] LABORATORY Lymphocytes Abs 1.7 0.9 - 3.2 [facility] x10(3)[facility] LABORATORY Monocytes % 12.9 % [facility] LABORATORY Monocyte Abs 0.9 0.3 - 0.9 [facility] x10(3)[facility] LABORATORY Eosinophils % 2.1 % [facility] LABORATORY Eosinophils Abs 0.1 0.0 - 0.4 [facility] x10(3)[facility] LABORATORY Basophils % 0.4 % [facility] LABORATORY Basophils Abs 0.0 0.0 - 0.1 [facility] x10(3)[facility] LABORATORY Immature Gran % 0.60 % [facility] LABORATORY Comment: Immature granulocytes(IG's)percentage an d absolute count will include metamyelocytes, myelocytes, and promyelo cytes. Blood smears from CBCs yielding IG's will be scanned manually for concor dance. If this scan disagrees with the automated IG or if promyelocytes are not ed, a manual differential will be performed. Rain Gran Abs 0.04 0.00 - 0.04 x10(3)/[facility] LABORATORY Specimen Anatomical Collection Method Collection Time Receive d Time (Source) Location / / Volume Laterality Blood 05/21/2022 6:15 AM 2 6:38 EDT AM EDT Resulting Agency Comment Spec In Lab Edward Rodríguez MD HEMATOLOGY ORDERABLES Performing Organization Address City/State/[place] [address] (ABNORMAL) Hemogram (05/21/2022 6:15 AM EDT) [facility] Method Time Signature WBC 6.8 4.0 - 9.5 [facility] x10(3)/[facility] LABORATORY RBC 3.59 (L) 4.58 - [facility] 5.54 [facility] x10(6)/[facility] LABORATORY Hemoglobin 11.8 (L) 13.7 - [facility] 16.5 g/dL [facility] LABORATORY Hematocrit 34.5 (L) 40.5 - [facility] 48.5 % [facility] LABORATORY MCV 96.1 (H) 82.9 - [facility] 93.1 [facility] LABORATORY MCH 32.9 (H) 27.5 - [facility] 32.1 pg [facility] LABORATORY MCHC 34.2 32.0 - [facility] 35.7 g/dL [facility] LABORATORY Platelets 198 145 - 357 [facility] x10(3)/[facility] LABORATORY RDWSD 44.9 36.0 - [facility] 45.0 [facility] LABORATORY RDWCV 12.6 11.4 - [facility] 13.8 % [facility] LABORATORY MPV 10.0 7.6 - 12.9 [facility] LABORATORY nRBC % Auto 0.3 % [facility] LABORATORY nRBC Abs Auto 0.020 (H) 0.000 - [facility] 0.000 [facility] x10(3)/[facility] LABORATORY Specimen Anatomical Collection Method Collection Time Receive d Time (Source) Location / / Volume Laterality Blood 05/21/2022 6:15 AM 2 6:38 EDT AM EDT Resulting Agency Comment Spec In Lab Edward Rodríguez MD HEMATOLOGY ORDERABLES Performing Organization Address City/State/ZIP Code Phon e Number [place] [id number] LAB[address] EKG 12 Lead (05/20/2022 7:04 PM EDT) Component Value Ref Range Test Analysis Performed Pathologis t Method Time At Signature Ventricular rate 101 BPM MUSE SYSTEM QRS Duration 116 ms MUSE SYSTEM Q-T Interval 378 ms MUSE SYSTEM QTC Calculated 490 ms MUSE SYSTEM (Bezet) Calculated R [place] -53 degrees MUSE SYSTEM Calculated T [place] 101 degrees MUSE SYSTEM INTERPRETATION Atrial fibrillation [...] ? Procedure Date: 05/20/2022 ? A #: [id number] ? Primary Physician: Abundio Servin ? Case #: [id number] ? File Name: [id number] ? Catheterization Order Number: [id number] ? [facility] ? Final Report [place], [place] ? Patient Name: ? Koko J. Klarissa uson ? ID#: ?[id number] ? : ?1940 ? Procedure Date: ? [...] procedure was Urgent. The indication for ?the ship laborer visit is cardiomyo nita. Chest pain [...] ?3.5 guiding catheter and a 3.[address] ??20 Mhz. ??Imaging ?was successful. ??Image [...] premounted 2. 75 x 30 mm Rudy [place] (AMPARO) was deployed ? with a maximum [...] may require ?modification of this regimen. C [facility] Interventional Cardiology for ?questions. ?The 1 year [...] Koko Zamora Procedure Date: 05/20/2022 A #: [id number] Primary Physician: Abundio Servin Case #: File Name: [id number] Catheterization Order Number: [id number] [facility] Final Report [place], [place] Patient Name: Koko Zamora ID#: [id number] : 1940 Procedure Date: May 20, 2022 [...] ASA Class IV. [facility] clinical frailty scale is 3: [...] e was Urgent. The indication for the ship laborer visit is cardiomyopathy. C hest pain [...] 3.5 guiding catheter and a 3.[address] 20 Mhz. Imaging was successful. Image [...] A premounted 2.75 x 30 mm Rudy [place] (AMPARO) was deployed with a maximum inflation [...] modification of this regimen. Consult D [facility] Interventional Cardiology for questions. The [...] Signature POC Glucose 123 65 - 199 [facility] mg/dL [facility] LABORATORY Comment: Supplemental ranges: <140 mg/dL before meals <180 mg/dL all other times of the day Specimen Anatomical Collection Method Collection Time Receive d Time (Source) Location / / Volume Laterality Blood 05/20/2022 5:42 PM 2 5:42 EDT PM EDT Fito Summres MD POINT OF CARE TEST ORDERABLE S Performing Organization Address City/State/[place] [address] (ABNORMAL) BMP w/fasting Glucose (05/20/2022 10:50 AM EDT) P athologist Signature Glucose 152 (H) 65 - 99 [facility] F[facility]/dL [facility] Comment: ?Fasting* Glucose Interpretive [...] 2009 BUN 11 10 - 20 mg/dL [facility] LABORATORY Creatinine 0.63 (L) 0.80 - [...] 15 mmol/L [facility] LAB[facility] Calcium 8.7 8.5 - 10.5 [...] Organization Address City/State/[place] [address] Heparin (unfractionated) Level (05/20/2022 5:02 AM EDT) P athologist Signature Heparin UFH 0.57 IU/mL [facility] LABORATORY Comment: Heparin (anti-Xa) levels [...] Organization Address City/State/[place] [address] (ABNORMAL) Differential, Automated (05/20/2022 5:02 AM EDT) Patholo gist Method Time Signature Neutrophils % 58.1 % [facility] LABORATORY Neutr Abs (ANC) 4.52 1.70 - [facility] 6.10 [facility] x10(3)/[facility] LABORATORY Lymphocytes % 24.1 % [facility] LABORATORY Lymphocytes Abs 1.9 0.9 - 3.2 [facility] x10(3)/[facility] LABORATORY Monocytes % 13.8 % [facility] LABORATORY Monocyte Abs 1.1 (H) 0.3 - 0.9 [facility] x10(3)/[facility] LABORATORY Eosinophils % 2.6 % [facility] LABORATORY Eosinophils Abs 0.2 0.0 - 0.4 [facility] x10(3)[facility] LABORATORY Basophils % 0.8 % [facility] LABORATORY Basophils Abs 0.1 0.0 - 0.1 [facility] x10(3)/[facility] LABORATORY Immature Gran % 0.60 % [facility] [...] Abs 0.05 (H) 0.00 - 0.04 x10(3)/[facility] LABORATORY Specimen Anatomical Collection Method Collection Time Receive d Time (Source) Location / / Volume Laterality Blood 05/20/2022 5:02 AM 5:19 EDT AM EDT Resulting Agency Comment Spec In Lab Edward Rodríguez MD HEMATOLOGY ORDERABLES Performing Organization Address City/State/[place] [address] (ABNORMAL) Hemogram (05/20/2022 5:02 AM EDT) Analysis Performed At Patho logist Time Signature WBC 7.8 4.0 - 9.5 [facility] x10(3)/[facility] LABORATORY RBC 3.53 (L) 4.58 - [facility] 5.54 [facility] x10(6)/[facility] LABORATORY Hemoglobin 11.4 (L) 13.7 - [facility] 16.5 g/dL [facility] Hematocrit 34.3 (L) 40.5 - [facility] 48.5 % [facility]ORY MCV 97.2 (H) 82.9 - [facility] 93.1 [facility] LABORATORY MCH 32.3 (H) 27.5 - [facility] 32.1 pg [facility] MCHC 33.2 32.0 - [facility] 35.7 g/dL [facility] Platelets 181 145 - 357 [facility] x10(3)/[facility] LABORATORY RDWSD 46.4 (H) 36.0 - [facility] 45.0 [facility] LABORATORY RDWCV 13.0 11.4 - [facility] 13.8 % [facility] LABORATORY MPV 10.4 7.6 - 12.9 [facility] LABORATORY nRBC % Auto 0.0 % [facility] LABORATORY nRBC Abs Auto 0.000 0.000 - [facility] 0.000 [facility] x10(3)/[facility] LABORATORY Specimen Anatomical Collection Method Collection Time Receive d Time (Source) Location / / Volume Laterality Blood 05/20/2022 5:02 AM 2 5:19 EDT AM EDT Resulting Agency Comment Spec In Lab Edward Rodríguez MD HEMATOLOGY ORDERABLES Performing Organization Address City/State/[place] [address] Heparin (unfractionated) Level (05/19/2022 3:26 AM EDT) P athologist Signature Heparin UFH 0.59 IU/mL [facility] LABORATORY Comment: Heparin (anti-Xa) levels [...] Organization Address City/State/[place] [address] (ABNORMAL) Differential, Automated (05/19/2022 3:26 AM EDT) [facility] Method Time Signature Neutrophils % 62.1 % [facility] LABORATORY Neutr Abs (ANC) 4.59 1.70 - [facility] 6.10 [facility] x10(3)/[facility] LABORATORY Lymphocytes % 22.1 % [facility] LABORATORY Lymphocytes Abs 1.6 0.9 - 3.2 [facility] x10(3)/[facility] LABORATORY Monocytes % 13.5 % [facility] LABORATORY Monocyte Abs 1.0 (H) 0.3 - 0.9 [facility] x10(3)/[facility] LABORATORY Eosinophils % 1.3 % [facility] LABORATORY Eosinophils Abs 0.1 0.0 - 0.4 [facility] x10(3)/[facility] LABORATORY Basophils % 0.5 % [facility] LABORATORY Basophils Abs 0.0 0.0 - 0.1 [facility] x10(3)/[facility] LABORATORY Immature Gran % 0.50 % [facility] LABORATORY Comment: Immature granulocytes(IG's)percentage an d absolute count will include metamyelocytes, myelocytes, and promyelo cytes. Blood smears from CBCs yielding IG's will be scanned manually for concor dance. If this scan disagrees with the automated IG or if promyelocytes are not ed, a manual differential will be performed. Rain Gran Abs 0.04 0.00 - 0.04 x10(3)/[facility] LABORATORY Specimen Anatomical Collection Method Collection Time Receive d Time (Source) Location / / Volume Laterality Blood 05/19/2022 3:26 AM 2 3:59 EDT AM EDT Resulting Agency Comment Spec In Lab Edward Rodríguez MD HEMATOLOGY ORDERABLES Performing Organization Address City/State/[place] [address] (ABNORMAL) Hemogram (05/19/2022 3:26 AM EDT) Analysis Performed At [facility] logist Time Signature WBC 7.4 4.0 - 9.5 [facility] x10(3)/[facility] LABORATORY RBC 3.74 (L) 4.58 - [facility] 5.54 [facility] x10(6)/[facility] LABORATORY Hemoglobin 12.1 (L) 13.7 - [facility] 16.5 g/dL [facility] LABORATORY Hematocrit 36.4 (L) 40.5 - [facility] 48.5 % [facility] LABORATORY MCV 97.3 (H) 82.9 - [facility] XIAO 93.1 [facility] LABORATORY MCH 32.4 (H) 27.5 - [facility]OW[facility] 32.1 pg [facility] LABORATORY MCHC 33.2 32.0 - [facility] 35.7 g/dL [facility] LABORATORY Platelets 168 145 - 357 [facility] x10(3)/[facility] LABORATORY RDWSD 46.9 (H) 36.0 - [facility] 45.0 [facility] LABORATORY RDWCV 13.0 11.4 - [facility] 13.8 % [facility] MPV 10.5 7.6 - 12.9 [facility] fL [facility] LABORATORY nRBC % Auto 0.0 % [facility] LABORATORY nRBC Abs Auto 0.000 0.000 - [facility] 0.000 [facility] x10(3)/[facility] LABORATORY Specimen Anatomical Collection Method Collection Time Receive d Time (Source) Location / / Volume Laterality Blood 05/19/2022 3:26 AM 3:59 EDT AM EDT Resulting Agency Comment Spec In Lab Edward Rodríguez MD HEMATOLOGY ORDERABLES Performing Organization Address City/State/[place] [address] TSH (05/18/2022 8:00 PM EDT) P athologist Signature TSH 2.27 0.27 - 4.20 [facility] mcIU/mL [facility] LAB[facility]ORY Comment: Reference Interval (mcIU/mL): Females: ??First Trimester: 0.23-3.88 ??Second Trimester: 0.22-3.90 ??Third Trimester: 0.44-4.66 Specimen Anatomical Collection Method Collection Time Receive d Time (Source) Location / / Volume Laterality Blood 05/18/2022 8:00 PM 2 8:06 EDT PM EDT Resulting Agency Comment Spec In Lab Fito Summers MD CHEMISTRY ORDERABLES Performing Organization Address City/State/[place] [address] (ABNORMAL) Differential, Automated (05/18/2022 3:34 AM EDT) [facility] Method Time Signature Neutrophils % 67.2 % [facility] LABORATORY Neutr Abs (ANC) 5.89 1.70 - [facility] 6.10 [facility] x10(3)/[facility] LABORATORY Lymphocytes % 17.1 % [facility] LABORATORY Lymphocytes Abs 1.5 0.9 - 3.2 [facility] x10(3)/[facility] LABORATORY Monocytes % 13.6 % [facility] LABORATORY Monocyte Abs 1.2 (H) 0.3 - 0.9 [facility] x10(3)/[facility] LABORATORY Eosinophils % 1.0 % [facility] LABORATORY Eosinophils Abs 0.1 0.0 - 0.4 [facility] x10(3)/[facility] LABORATORY Basophils % 0.6 % [facility] LABORATORY Basophils Abs 0.0 0.0 - 0.1 [facility] x10(3)/[facility] LABORATORY Immature Gran % 0.50 % [facility] LABORATORY Comment: Immature granulocytes(IG's)percentage an d absolute count will include metamyelocytes, myelocytes, and promyelo cytes. Blood smears from CBCs yielding IG's will be scanned manually for concor dance. If this scan disagrees with the automated IG or if promyelocytes are not ed, a manual differential will be performed. Rain Gran Abs 0.04 0.00 - 0.04 x10(3)/[facility] LABORATORY Specimen Anatomical Collection Method Collection Time Receive d Time (Source) Location / / Volume Laterality Blood 05/18/2022 3:34 AM 2 3:48 EDT AM EDT Resulting Agency Comment Spec In Lab Edward Rodríguez MD HEMATOLOGY ORDERABLES Performing Organization Address City/State/[place] [address] (ABNORMAL) Hemogram (05/18/2022 3:34 AM EDT) Analysis Performed At Patho logist Time Signature WBC 8.8 4.0 - 9.5 [facility] x10(3)/[facility] LABORATORY RBC 3.45 (L) 4.58 - [facility] 5.54 [facility] x10(6)/[facility] LABORATORY Hemoglobin 11.2 (L) 13.7 - [facility] 16.5 g/dL [facility] LAB[facility]ATORY Hematocrit 33.0 (L) 40.5 - [facility] 48.5 % [facility] MCV 95.7 (H) 82.9 - [facility] 93.1 [facility] LABORATORY MCH 32.5 (H) 27.5 - [facility] 32.1 pg [facility] MCHC 33.9 32.0 - [facility] 35.7 g/dL [facility] Platelets 130 (L) 145 - 357 [facility] x10(3)/[facility] LABORATORY RDWSD 46.2 (H) 36.0 - [facility] 45.0 [facility] LABORATORY RDWCV 13.2 11.4 - [facility] 13.8 % [facility] LABORATORY MPV 10.8 7.6 - 12.9 [facility] LABORATORY nRBC % Auto 0.0 % [facility] LABORATORY nRBC Abs Auto 0.000 0.000 - [facility] 0.000 [facility] x10(3)/[facility] LABORATORY Specimen Anatomical Collection Method Collection Time Receive d Time (Source) Location / / Volume Laterality Blood 05/18/2022 3:34 AM 3:48 EDT AM EDT Resulting Agency Comment Spec In Lab Edward Rodríguez MD HEMATOLOGY ORDERABLES Performing Organization Address City/State/[place] [address] Heparin (unfractionated) Level (05/18/2022 3:34 AM EDT) P athologist Signature Heparin UFH 0.59 IU/mL [facility] LABORATORY Comment: Heparin (anti-Xa) levels [...] Summers MD HEMATOLOGY ORDERABLES Performing Organization Address City/[facility]/[place] [address] Magnesium (05/17/2022 3:33 AM EDT) athologist Signature Magnesium 0.76 0.69 - 1.07 [facility] mmol/L [facility] LABORATORY Specimen Anatomical Collection Method Collection Time Receive d Time (Source) Location / / Volume Laterality Blood Venous Draw / 05/17/2022 3:33 AM 05/17/20 4:05 Unknown EDT AM EDT Resulting Agency Comment Spec In Lab Dottie Hill APRN CHEMISTRY ORDERABLES Performing Organization Address City/State/[place] [address] (ABNORMAL) Basic Metabolic Panel (non-fasting) (05/17/2022 3:33 AM EDT) athologist Signature Glucose Lvl 158 65 - 199 [facility] mg/dL [facility] LABORATORY Comment: Diabetes: >=200 mg/dL plus symp toms BUN 12 10 - 20 mg/dL [facility] LABORATORY Creatinine 0.74 (L) 0.80 - [...] estions. Chloride 102 98 - 107 mmol/L [facility] LABORATORY CO2 25 22 - 31 mmol/L [facility] LABORATORY Anion Gap 10 5 - 15 mmol/L [facility] LABORATORY Calcium 8.4 (L) 8.5 - 10.5 mg/dL [facility] LABORATORY Estimated GFR 92 >=60 mL/min/1.73 m?? [facility] [...] Organization Address City/State/[place] [address] (ABNORMAL) Differential, Automated (05/17/2022 3:33 AM EDT) [facility] gist Method Time Signature Neutrophils % 65.5 % [facility] LABORATORY Neutr Abs (ANC) 6.84 (H) 1.70 - [facility] 6.10 [facility] x10(3)/[facility] LABORATORY Lymphocytes % 19.7 % [facility] LABORATORY Lymphocytes Abs 2.1 0.9 - 3.2 [facility] x10(3)/[facility] LABORATORY Monocytes % 13.1 % [facility] LABORATORY Monocyte Abs 1.4 (H) 0.3 - 0.9 [facility] x10(3)/[facility] LABORATORY Eosinophils % 0.6 % [facility] LABORATORY Eosinophils Abs 0.1 0.0 - 0.4 [facility] x10(3)/[facility] LABORATORY Basophils % 0.6 % [facility] LABORATORY Basophils Abs 0.1 0.0 - 0.1 [facility] x10(3)/[facility] LABORATORY Immature Gran % 0.50 % [facility] [...] Abs 0.05 (H) 0.00 - 0.04 x10(3)/[facility] LABORATORY Specimen Anatomical Collection Method Collection Time Receive d Time (Source) Location / / Volume Laterality Blood 05/17/2022 3:33 AM 3:53 EDT AM EDT Resulting Agency Comment Spec In Lab Edward Rodríguez MD HEMATOLOGY ORDERABLES Performing Organization Address City/State/[place] [address] (ABNORMAL) Hemogram (05/17/2022 3:33 AM EDT) Analysis Performed At Patho logist Time Signature WBC 10.4 (H) 4.0 - 9.5 [facility] x10(3)/[facility] LABORATORY RBC 3.72 (L) 4.58 - [facility] 5[facility]54 [facility] x10(6)/[facility] LABORATORY Hemoglobin 12.0 (L) 13.7 - [facility] 16.5 g/dL [facility] LAB[facility]ORY Hematocrit 36.4 (L) 40.5 - [facility] 48.5 % [facility] LABORATORY MCV 97.8 (H) 82.9 - [facility] 93.1 [facility] LABORATORY MCH 32.3 (H) 27.5 - [facility] 32.1 pg [facility] LAB[facility]ATORY MCHC 33.0 32.0 - [facility] 35.7 g/dL [facility] Platelets 149 145 - 357 [facility] x10(3)/[facility] LABORATORY RDWSD 48.7 (H) 36.0 - [facility] 45.0 [facility] RDWCV 13.5 11.4 - [facility] 13.8 % [facility] LABORATORY MPV 10.6 7.6 - 12.9 [facility] LABORATORY nRBC % Auto 0.0 % [facility] LABORATORY nRBC Abs Auto 0.000 0.000 - [facility] 0.000 [facility] x10(3)/[facility] LABORATORY Specimen Anatomical Collection Method Collection Time Receive d Time (Source) Location / / Volume Laterality Blood 05/17/2022 3:33 AM 3:53 EDT AM EDT Resulting Agency Comment Spec In Lab Edward Rodríguez MD HEMATOLOGY ORDERABLES Performing Organization Address City/State/[place] [address] (ABNORMAL) Urinalysis Microscopic Exam [...] Organization Address City/State/ZIP Code Phon e Number [place] [id number] [address] (ABNORMAL) Urinalysis with reflex Culture (05/16/2022 11:15 PM EDT) Patholo gist Method Time Signature Glucose UA Negative Negative [facility] mg/dL [facility] Protein UA Negative Negative [facility] mg/dL [facility] Bilirubin UA Negative Negative [facility] mg/dL [facility] LAB[facility]ORY Comment: Clinical correlation required [...] LABORATORY Blood UA Small (A) Negative mg/dL [facility] LABORATORY Ketones UA Trace (A) Negative mg/dL [facility] LABORATORY Nitrite UA Negative Negative [facility] LABORATORY Leukocytes UA Negative Negative [facility] LABORATORY Appearance UA Clear Clear [facility] LABORATORY Spec [place]aver UA 1.021 1.005 - 1.030 [facility] LABORATORY Color UA Yellow Yellow [facility] LABORATORY Culture Reflexed No [facility] LABORATORY Specimen Anatomical Collection Method Collection Time Receive d Time (Source) Location / / Volume Laterality Clean Catch 05/16/2022 11:15 05/16/2022 Urine PM EDT 11:30 PM EDT Resulting Agency Comment Spec In Lab Fito Summers MD URINE ORDERABLES Performing Organization Address City/State/[place] [address] Heparin (unfractionated) Level (05/16/2022 10:59 PM EDT) P athologist Signature Heparin UFH 0.65 IU/mL [facility] LABORATORY Comment: Specimen drawn more [...] Organization Address City/State/ZIP Code Phon e Number [place] [id number]OS[address] LAB[address] Drive XR Chest One View [...] questions please contact the health day care supervisor that requested your imaging first. ? Electronically signed by: Tiffanie George MD , [facility] ([phone]), at 05/16/2022 9:27 PM Narrative 05/16/2022 9:27 [...] questions please contact the health day care supervisor that requested your imaging first. Electronically signed by: Tiffanie George MD , [facility] ([phone]), at 05/16/2022 9:27 PM Fito Summers MD IMG DX ORDERABLES EKG 12 Lead (05/16/2022 8:57 PM EDT) Component Value Ref Range Test Analysis Performed Pathologis t Method Time At Signature Ventricular rate 117 BPM MUSE SYSTEM QRS Duration 112 ms MUSE SYSTEM Q-T Interval 346 ms MUSE SYSTEM QTC Calculated 482 ms MUSE SYSTEM (Bezet) Calculated R [place] -48 degrees MUSE SYSTEM Calculated T [place] 111 degrees MUSE SYSTEM INTERPRETATION Atrial fibrillation with rapid ventricular response MUSE SYSTEM Left anterior fascicular block Minimal voltage criteria for LVH, may be normal variant ( [place] product ) Nonspecific ST and T wave [...] P athologist Signature Heparin UFH 0.53 IU/mL [facility] LABORATORY Comment: Heparin (anti-Xa) levels [...] Organization Address City/State/[place] [address] ECHOCARDIOGRAM COMPLETE W CONTRAST (05/16/2022 12:49 PM EDT) P athologist Signature EF 28 HEARTLAB SYSTEM Anatomical Region Laterality Modality Cardiac Other Specimen (Source) Anatomical Collection Method Collection Time Re ceived Time Location / / Volume Laterality 05/16/2022 11:22 AM EDT Narrative 05/16/2022 1:54 PM EDT ?[facility] ?[address] ? [place] [address] ?Voice: ?Fax: ? Echocardiogram Report Name: ZAMORAKOKO ?Study Date: 05/16/2022 11:22 AM ? Patient Location: 3WST 0303 B : 1940 ? Height: 67.5 in ? Account: [id number] Age: 81 yrs ? Weight: 176 lb Gender: Male ?BSA: 1.9 m2 Ordering Physician: FITO SUMMERS Referring Physician: MALI FLORIAN Performed By: Jolene Bernard RDCS Exam Location: [facility]. Interpretation Summary Left ventricle is mildly dilated. [...] and LV systolic dysfunction are new. Procedure Complete-[id number]. Image enhancement Optiso n was used for [...] note might [place] [address] Voice: Fax: Echocardiogram Report Name: KOKO ZAMORA Study Date: 05/2022 11:22 AM Patient Location: [address] [place] [address] : 1940 Height: 67.5 in Account: [id number] Age: 81 yrs Weight: 176 lb Gender: Male BSA: 1.9 m2 Ordering Physician: FITO SUMMERS Referring Physician: MALI FLORIAN Performed By: Jolene Bernard RDCS Exam Location: [facility]. Interpretation Summary Left ventricle is mildly dilated. [...] and LV systolic dysfunction are new. Procedure Complete-[id number]. Image enhancement Optiso n was used for [...] (ABNORMAL) Differential, Automated (05/16/2022 3:01 AM EDT) [facility] Method Time Signature Neutrophils % 78.8 % [facility] LABORATORY Neutr Abs (ANC) 9.11 (H) 1.70 - [facility] 6.10 [facility] x10(3)/[facility] LABORATORY Lymphocytes % 9.4 % [facility] LABORATORY Lymphocytes Abs 1.1 0.9 - 3.2 [facility] x10(3)/[facility] LABORATORY Monocytes % 10.9 % [facility] LABORATORY Monocyte Abs 1.3 (H) 0.3 - 0.9 [facility] x10(3)/[facility] LABORATORY Eosinophils % 0.0 % [facility] LABORATORY Eosinophils Abs 0.0 0.0 - 0.4 [facility] x10(3)/[facility] LABORATORY Basophils % 0.3 % [facility] LABORATORY Basophils Abs 0.0 0.0 - 0.1 [facility] x10(3)/[facility] LABORATORY Immature Gran % 0.60 % [facility] [...] Abs 0.07 (H) 0.00 - 0.04 x10(3)/[facility] LABORATORY Specimen Anatomical Collection Method Collection Time Receive d Time (Source) Location / / Volume Laterality Blood 05/16/2022 3:01 AM 3:36 EDT AM EDT Resulting Agency Comment Spec In Lab Erin Garza MD HEMATOLOGY ORDERABLES Performing Organization Address City/State/[place] [address] (ABNORMAL) Hemogram (05/16/2022 3:01 AM EDT) Analysis Performed At Patho logist Time Signature WBC 11.6 (H) 4.0 - 9.5 [facility] CENTER x10(3)/[facility] LABORATORY RBC 3.62 (L) 4.58 - [facility] 5.54 [facility] x10(6)/[facility] LABORATORY Hemoglobin 12.0 (L) 13.7 - [facility] 16.5 g/dL [facility] LABORATORY Hematocrit 35.3 (L) 40.5 - [facility] 48.5 % [facility] LABORATORY MCV 97.5 (H) 82.9 - [facility] 93.1 [facility] LABORATORY MCH 33.1 (H) 27.5 - [facility] 32.1 pg [facility] LABORATORY MCHC 34.0 32.0 - [facility] g/dL [facility] LABOR[facility]ORY Platelets 151 145 - 357 [facility] x10(3)/[facility] LABORATORY RDWSD 47.6 (H) 36.0 - [facility] 45.0 [facility] LABORATORY RDWCV 13.3 11.4 - [facility] XIAO 13.8 % [facility] LABORATORY MPV 10.5 7.6 - 12.9 [facility] LABORATORY nRBC % Auto 0.0 % [facility] LABORATORY nRBC Abs Auto 0.000 0.000 - [facility] 0.000 [facility] x10(3)/[facility] LABORATORY Specimen Anatomical Collection Method Collection Time Receive d Time (Source) Location / / Volume Laterality Blood 05/16/2022 3:01 AM 2 3:36 EDT AM EDT Resulting Agency Comment Spec In Lab Erin Garza MD HEMATOLOGY ORDERABLES Performing Organization Address City/State/ZIP Code Phon e Number [address] Phosphorus (05/16/2022 3:01 AM EDT) athologist Signature Phosphorus 3.7 2.5 - 4.5 [facility] mg/dL [facility] LABORATORY Specimen Anatomical Collection Method Collection Time Receive d Time (Source) Location / / Volume Laterality Blood 05/16/2022 3:01 AM 2 3:36 EDT AM EDT Resulting Agency Comment Spec In Lab Fito Summers MD CHEMISTRY ORDERABLES Performing Organization Address City/[facility]/ZIP Code Phon e Number [address] Magnesium (05/16/2022 3:01 AM EDT) athologist Signature Magnesium 0.77 0.69 - 1.07 [facility] mmol/L [facility] LABORATORY Specimen Anatomical Collection Method Collection Time Receive d Time (Source) Location / / Volume Laterality Blood 05/16/2022 3:01 AM 2 3:36 EDT AM EDT Resulting Agency Comment Spec In Lab Fito Summers MD CHEMISTRY ORDERABLES Performing Organization Address City/[facility]/[place] [address] (ABNORMAL) Basic Metabolic Panel (non-fasting) (05/16/2022 3:01 AM EDT) P athologist Signature Glucose Lvl 222 (H) 65 - 199 [facility] mg/dL [facility] LABORATORY Comment: Diabetes: >=200 mg/dL plus symp toms BUN 12 10 - 20 mg/dL [facility] LABORATORY Creatinine 0.66 (L) 0.80 - [facility] LAB[facility]ORY CO2 22 22 - 31 mmol/L [facility] LABORATORY Anion Gap 8 5 - 15 mmol/L [facility] LABORATORY Calcium 8.2 (L) 8.5 - 10.5 mg/dL [facility] LABORATORY Estimated GFR 95 >=60 mL/min/1.73 m?? [facility] [...] Organization Address City/State/[place] [address] (ABNORMAL) BLOOD GAS 2 ARTERIAL (05/15/2022 3:33 PM EDT) Analysis Performed At Patho logist Time Signature pH Art 7.33 (L) 7.35 - [facility] 7.45 [facility] LABORATORY pCO2 Art 41 35 - 45 [facility] mmHg [facility] LABORATORY pO2 Art 131 (H) 85 - 104 [facility] LABORATORY HCO3 Art 21.1 20.0 - [facility] 26.0 [facility] mmol/L [facility] LABORATORY BE Art -4.8 (L) -3.0 - 3.0 [facility] mmol/L [facility] LABORATORY Hgb Blood Gas 13.4 (L) 13.7 - [facility] 16.5 g/dL [facility] LABORATORY O2HB Art 96.9 94.0 - [facility] 97.0 % [facility] LABORATORY COHB Art 1.4 % WHITE [...] Whole Bld 136 65 - 199 mg/dL [facility] [...] Organization Address City/State/[place] [address] (ABNORMAL) BLOOD GAS 2 ARTERIAL (05/15/2022 2:06 PM EDT) Analysis Performed At Patho logist Time Signature pH Art 7.39 7.35 - [facility] 7.45 [facility] LABORATORY pCO2 Art 35 35 - 45 [facility] mmHg [facility] LABORATORY pO2 Art 135 (H) 85 - 104 [facility] LABORATORY HCO3 Art 20.8 20.0 - [facility] 26.0 [facility] mmol/L [facility] LABORATORY BE Art -4.2 (L) -3.0 - 3.0 [facility] mmol/L [facility] LABORATORY Hgb Blood Gas 14.5 13.7 - [facility] 16.5 g/dL [facility] LABORATORY O2HB Art 97.2 (H) 94.0 - [facility] 97.0 % [facility] LABORATORY COHB Art 1.2 % [facility] LABORATORY Comment: Nonsmokers: 0.5-1.5% COHB Smokers: Variable, but usually less than 10% Toxic: 20-30% COHB Lethal: Greater than 60% COHB METHB Art 0.3 <=1.5 % [facility] LABORATORY Na Whole Blood 140 135 - 145 mmol/L [facility] LABORATORY K Whole Blood 3.8 3.5 - 5.0 mmol/L [facility] LABORATORY Comment: Please note: Patients with WBC >100,000 may have falsely elevated Potassium levels. Contact the Clinical Chemistry L aboratory if there are any questions. ICa Whole Blood 1.12 (L) 1.15 - 1.33 mmol/L [facility] LABORATORY Comment: Note: ??Total bilirubin higher than 20 m g/dL may lead to falsely low ionized calcium. CL Whole Blood 109 (H) 98 - 107 mmol/L [facility] LABORATORY Gluc Whole Bld 152 65 - 199 mg/dL [facility] LABORATORY Comment: Diabetes: >=200 mg/dL plus symp toms. Lactate WB 1.5 0.5 - 2.2 mmol/L [facility] LABORATORY Specimen Anatomical Collection Method Collection Time Receive d Time (Source) Location / / Volume Laterality Blood 05/15/2022 2:06 PM 2:[address] Jamel Torre MD CHEMISTRY ORDERABLES Performing Organization Address City/[facility]/[place] [address] (ABNORMAL) Prothrombin Time (05/15/2022 12:30 PM EDT) P athologist Signature PT 12.9 (H) 9.4 - 12.5 [facility] LABORATORY INR 1.1 [facility] Morales DO HEMATOLOGY ORDERABLES Performing Organization Address City/[facility]/[place] [address] (ABNORMAL) APTT (05/15/2022 12:30 [...] Daquan Andrew HEMATOLOGY ORDERABLES Performing Organization Address City/[facility]/ZIP Code Phon e Number [address] Gold Tube HOLD (05/15/2022 12:20 PM EDT) P athologist Signature Gold Hold Sample in [facility]. [facility] LABORATORY Specimen Anatomical Collection Method Collection Time Receive d Time (Source) Location / / Volume Laterality Blood No Charge / 05/15/2022 12:20 05/15/2022 Unknown PM EDT 12:20 PM EDT Lc TRIPP CHEMISTRY ORDERABLES Performing Organization Address City/[facility]/ZIP Code Phon e Number [address] Type and Screen Validity (05/15/2022 12:00 PM EDT) [facility] Method Time Signature T&S only valid [facility] at [facility] LABORATORY Comment: This Type and Screen result is only valid at the [facility] Specimen Anatomical Collection Method Collection Time Receive d Time (Source) Location / / Volume Laterality Blood 05/15/2022 12:00 05/15/2022 PM EDT 12:17 PM EDT Resulting Agency Comment Spec In Lab Lc Dominick Kimberly TRIPP BLOOD BANK ORDERABLES Performing Organization Address City/[facility]/ZIP Code Phon e Number [address] ABORH Recheck Status (05/15/2022 12:00 PM EDT) [facility] gist Method Time Signature ABORH Recheck Order Placed [facility] LABORATORY ABORH Type Complete [facility] LABORATORY Specimen Anatomical Collection Method Collection Time Receive d Time (Source) Location / / Volume Laterality Blood 05/15/2022 12:00 05/15/2022 PM EDT 12:17 PM EDT Resulting Agency Comment Spec In Lab Lc Harris PA BLOOD BANK ORDERABLES Performing Organization Address City/[facility]/[place] [address] CK (05/15/2022 12:00 PM EDT) P athologist Signature CK, Total 87 0 - 200 [facility] unit/L [facility] LABORATORY Specimen Anatomical Collection Method Collection Time Receive d Time (Source) Location / / Volume Laterality Blood Venous Draw / 05/15/2022 12:00 05/15/2022 Unknown PM EDT 12:19 PM EDT Resulting Agency Comment Spec In Lab Fito Summers MD CHEMISTRY ORDERABLES Performing Organization Address City/State/[place] [address] Antibody screen (05/15/2022 12:00 PM EDT) [facility] Method Time Signature Ab Screen Negative [facility] LABORATORY Expires at 05/18/2022 [facility] [id number] on: [facility] LABORATORY Specimen Anatomical Collection Method Collection Time Receive d Time (Source) Location / / Volume Laterality Blood 05/15/2022 12:00 05/15/2022 PM EDT 12:17 PM EDT Resulting Agency Comment Spec In Lab Lc TRIPP BLOOD BANK ORDERABLES Performing Organization Address City/[facility]/[place] [address] ABO/Rh Typing (05/15/2022 12:00 PM EDT) P athologist Signature ABORh Type O Pos [facility] LABORATORY Specimen Anatomical Collection Method Collection Time Receive d Time (Source) Location / / Volume Laterality Blood 05/15/2022 12:00 05/15/2022 PM EDT 12:17 PM EDT Resulting Agency Comment Spec In Lab Lc TRIPP BLOOD BANK ORDERABLES Performing Organization Address City/[facility]/[place] [address] (ABNORMAL) Differential, Automated (05/15/2022 12:00 PM EDT) [facility] Method Time Signature Neutrophils % 79.4 % [facility] LABORATORY Neutr Abs (ANC) 7.49 (H) 1.70 - [facility] 6.10 [facility] x10(3)/[facility] LABORATORY Lymphocytes % 11.3 % [facility] LABORATORY Lymphocytes Abs 1.1 0.9 - 3.2 [facility] x10(3)/[facility] LABORATORY Monocytes % 7.8 % [facility] LABORATORY Monocyte Abs 0.7 0.3 - 0.9 [facility] x10(3)/[facility] LABORATORY Eosinophils % 0.6 % [facility] LABORATORY Eosinophils Abs 0.1 0.0 - 0.4 [facility] x10(3)/[facility] LABORATORY Basophils % 0.6 % [facility] LABORATORY Basophils Abs 0.1 0.0 - 0.1 [facility] x10(3)/[facility] LABORATORY Immature Gran % 0.30 % [facility] LABORATORY Comment: Immature granulocytes(IG's)percentage an d absolute count will include metamyelocytes, myelocytes, and promyelo cytes. Blood smears from CBCs yielding IG's will be scanned manually for concor dance. If this scan disagrees with the automated IG or if promyelocytes are not ed, a manual differential will be performed. Rain Gran Abs 0.03 0.00 - 0.04 x10(3)/[facility] LABORATORY Specimen Anatomical Collection Method Collection Time Receive d Time (Source) Location / / Volume Laterality Blood 05/15/2022 12:00 05/15/2022 PM EDT 12:19 PM EDT Resulting Agency Comment Spec In Lab Lc TRIPP HEMATOLOGY ORDERABLES Performing Organization Address City/State/[place] [address] (ABNORMAL) Hemogram (05/15/2022 12:00 PM EDT) Analysis Performed At Patho logist Time Signature WBC 9.4 4.0 - 9.5 [facility] x10(3)/[facility] LABORATORY RBC 4.48 (L) 4.58 - [facility] 5.54 [facility] x10(6)/[facility] LABORATORY Hemoglobin 14.5 13.7 - [facility] 16.5 g/dL [facility] LABORATORY Hematocrit 42.4 40.5 - [facility] 48.5 % [facility] LABORATORY MCV 94.6 (H) 82.9 - [facility] 93.1 [facility] LABORATORY MCH 32.4 (H) 27.5 - [facility] 32.1 pg [facility] LABORATORY MCHC 34.2 32.0 - [facility] 35.7 g/dL [facility] LABORATORY Platelets 209 145 - 357 [facility] x10(3)/[facility] LABORATORY RDWSD 45.9 (H) 36.0 - [facility] 45.0 [facility] LABORATORY RDWCV 13.1 11.4 - [facility] 13.8 % [facility] LABORATORY MPV 10.5 7.6 - 12.9 [facility] LABORATORY nRBC % Auto 0.0 % [facility] LABORATORY nRBC Abs Auto 0.000 0.000 - [facility] 0.000 [facility] x10(3)/[facility] LABORATORY Specimen Anatomical Collection Method Collection Time Receive d Time (Source) Location / / Volume Laterality Blood 05/15/2022 12:00 05/15/2022 PM EDT 12:19 PM EDT Resulting Agency Comment Spec In Lab Lc TRIPP HEMATOLOGY ORDERABLES Performing Organization Address City/State/[place] [address] (ABNORMAL) Basic Metabolic Panel (non-fasting) (05/15/2022 12:00 PM EDT) P athologist Signature Glucose Lvl 203 (H) 65 - 199 [facility] mg/dL [facility] LABORATORY Comment: Diabetes: >=200 mg/dL plus symp toms BUN 16 10 - 20 mg/dL [facility] LABORATORY Creatinine 0.84 0.80 - 1.50 [...] estions. Chloride 107 98 - 107 mmol/L [facility] LABORATORY CO2 23 22 - 31 mmol/L [facility] LABORATORY Anion Gap 11 5 - 15 mmol/L [facility] LABORATORY Calcium 8.5 8.5 - 10.5 mg/dL [facility] LABORATORY Estimated GFR 89 >=60 mL/min/1.73 m?? [facility] [...] Organization Address City/State/[place] [address] documented in this encounter [...] Reason: Transfer to a Procedural area)1955 ([facility] Unhold - Provider: Admin Adt) 08 (Given [...] Reason: Transfer to a Procedural area)1955 ([facility] Unhold - Provider: Admin Adt)2131 (Given - [...] Reason: Transfer to a Procedural area)1955 ([facility] Unhold - Provider: Admin Adt) 0817 (Given [...] Reason: Transfer to a Procedural area)1955 ([facility] Unhold - Provider: Admin Adt) 0816 (Given [...] Reason: Transfer to a Procedural area)1955 ([facility] Unhold - Provider: Admin Adt) 218 (Restarted [...] bisacodyL (Dulcolax) suppository 10 mg 1 751 ([facility] Hold - Provider: Admin Adt - Reason: Transfer to a Procedural area)1955 ([facility] Unhold - Provider: Admin Adt) 10 mg, [...] (porcine) (1,000 units/mL) injection 0-8,000 Units 175 ([facility] Hold - Provider: Admin Adt - Reason: Transfer to a Procedural area)1955 ([facility] Unhold - Provider: Admin Adt) 0-8,000 Units, [...] Reason: Transfer to a Procedural area)1955 ([facility] Unhold - Provider: Admin Adt) 3 mL, [...] - Pr ovider: Emily Sauceda RN) 1750 ([facility] Hold - Provider: Admin Adt - R lexie: Transfer to a Procedural area)1955 ([facility] Unhold - Provider: Admin Adt) 5 mg, [...] (Roxicodone) tablet 10-15 mg(Linked Group 2) 1750 ([facility] Hold - Provider: Admin Adt - Reason: Transfer to a Procedural area)1955 ([facility] Unhold - Provider: Admin Adt) 10-15 mg, Oral, EVERY 4 HOURS PRN, Start ing on Fri05/17/22 at 0655, Until Fri05/21/22 at 1743, Pain, severe pain (7-10), Initial dose 10mg. If pain control not adequate in 60 minutes, give additional 5mg, Routine oxyCODONE (Roxicodone) tablet 5-10 mg(Linked Group 2) 1750 ([facility] Hold - Provider: Admin Adt - Reason: Transfer to a Procedural area)1955 ([facility] Unhold - Provider: Admin Adt) 5-10 mg, [...]
Routine documented in this encounter Care Teams Special Education Assistant Relationship Specialty Start Date End Date Bobby Das MD PCP - General 10/02/[address] [place] [address] [place] [phone] documented as of this encounter
--- OUTSIDE RECORDS SUMMARY | 2022-08-02 09:56 | XMS_ITS | Encounter Summary ---
:1940 Author Organization [facility] [place] [address] Care Team Providers Name Role Phone Bobby Das MD Primary Care Provider Encounter Details Date Type Department Care Team Description 06/16/2019 Ancillary Procedure Radiology Library at Bobby Almaguer MD [facility] [address] [place] [phone] (Wo rk) Social History Tobacco Use Types Packs/Day Years Used Date Current Some Day Smoker 1 50 Smokeless Tobacco: Never Used Sex Assigned at Date Recorded Not on file documented as of this encounter Plan of Treatment Upcoming Encounters Date Type Specialty Care Team Description 08/08/2022 Office Visit Gastroenterology Negra Collins MD [facility] DR GASTROENTEROLOGY DEPT [place], [place] [address] (Wo rk) 09/05/2022 Appointment Cardiology Trinity Reid MD [facility] CARDIOLOGY [place], [place] [address] (Wo rk) 09/05/2022 Office Visit Cardiology Trinity Reid MD [facility] CARDIOLOGY [place], [place] [address] (Wo rk) documented as of [...] Organization Address City/State/ZIP Code Phon e Number [place], [place] documented in this encounter Visit Diagnoses Not on filedocumented in this encounter Care Teams Rehabilitation Liaison Relationship Specialty Start Date End Date Bobby Das MD PCP - General 10/02/[address] [place] [address] [place] [phone] documented as of this encounter
--- OUTSIDE RECORDS SUMMARY | 2022-08-02 09:56 | XMS_ITS | Encounter Summary ---
:1940 Author Organization [facility] [place] [address] Care Team Providers Name Role Phone Bobby Das MD Primary Care Provider Encounter Details Date Type Department Care Team Description 08/06/2020 Ancillary Procedure Radiology at [facility] Amy Grimaldo [address] [place] [address] 10 LITTLE JAY [phone] NEUROSURGERY-N [place], [place] [address] Social History Tobacco Use Types [...] MD [facility] GASTROENTEROLOGY DEPT [place], [place] [address] (Wo rk) 09/05/2022 Appointment Cardiology Trinity Reid MD [facility] CARDIOLOGY [place], [place] [address] (Wo rk) 09/05/2022 Office Visit Cardiology Trinity Reid MD [facility] CARDIOLOGY [place], [place] [address] (Wo rk) documented as of [...] Organization Address City/State/ZIP Code Phon e Number [place], [place] documented in this encounter Visit Diagnoses Not on filedocumented in this encounter Care Teams Emt Driver Relationship Specialty Start Date End Date Bobby Das MD PCP - General 10/02/[address] [place] [address] [place] [phone] documented as of this encounter
--- OUTSIDE RECORDS SUMMARY | 2022-08-02 09:56 | XMS_ITS | Encounter Summary ---
:1940 Author Organization [facility] [place] [address] Care Team Providers Name Role Phone Bobby Das MD Primary Care Provider Encounter Details Date Type Department Care Team Description 08/28/2020 Ancillary Procedure Radiology at [facility] Amy Grimaldo [address] [place] [address] 10 LITTLE JAY [phone] NEUROSURGERY-N [place], [place] [address] Social History Tobacco Use Types [...] Negra Collins MD [facility] GASTROENTEROLOGY DEPT [place], [place] [address] (Wo rk) 09/05/2022 Appointment Cardiology Trinity Reid MD [facility] CARDIOLOGY [place], [place] [address] (Wo rk) 09/05/2022 Office Visit Cardiology Trinity Reid MD [facility] CARDIOLOGY [place], [place] [address] (Wo rk) documented as [...] Address City/State/ZIP Code Phon e Number [place], [place] documented in this encounter Visit Diagnoses Not on filedocumented in this encounter Care Teams Applied Psychology Teacher Relationship Specialty Start Date End Date Bobby Das MD PCP - General 10/02/[address] [place] [address] [place] [phone] documented as of this encounter
--- OUTSIDE RECORDS SUMMARY | 2022-08-02 09:56 | XMS_ITS | Encounter Summary ---
:1940 Author Organization [facility] [place] [address] Care Team Providers Name Role Phone Bobby Das MD Primary Care Provider Encounter Details Date Type Department Care Team Description 05/15/2022 Ancillary Procedure Radiology Library at [facility], Lavell Butt, [facility] [place] [address] VASCULAR SURGERY [phone] [place] [id number] (Wo rk) Social History Tobacco Use Types [...] [facility] DR GASTROENTEROLOGY DEPT [place], [place] [address] (Wo rk) 09/05/2022 Appointment Cardiology Trinity Reid MD [facility] CARDIOLOGY [place], [place] [address] (Wo rk) 09/05/2022 Office Visit Cardiology Trinity Reid MD [facility] CARDIOLOGY [place], [place] [address] (Wo rk) documented as of [...] Organization Address City/State/ZIP Code Phon e Number [place], [place] documented in this encounter Visit Diagnoses Not on filedocumented in this encounter Care Teams Bag Turner Relationship Specialty Start Date End Date Bobby Das MD PCP - General 10/02/[address] [place] [address] [place] [phone] documented as of this encounter
--- OUTSIDE RECORDS SUMMARY | 2022-08-02 09:56 | XMS_ITS | Encounter Summary ---
:1940 Author Organization [facility] [place] [address] Care Team Providers Name Role Phone Bobby Das MD Primary Care Provider Encounter Details Date Type Department Care Team Description 05/13/2018 Ancillary Procedure Radiology Library at Bobby Almaguer MD [facility] [address] [place] [phone] (Wo rk) Social History Tobacco Use Types Packs/Day Years Used Date Current Some Day Smoker 1 50 Smokeless Tobacco: Never Used Sex Assigned at Date Recorded Not on file documented as of this encounter Plan of Treatment Upcoming Encounters Date Type Specialty Care Team Description 08/08/2022 Office Visit Gastroenterology Negra Collins MD [facility] DR GASTROENTEROLOGY DEPT [place], [place] [address] (Wo rk) 09/05/2022 Appointment Cardiology Trinity Reid MD [facility] CARDIOLOGY [place], [place] [address] (Wo rk) 09/05/2022 Office Visit Cardiology Trinity Reid MD [facility] CARDIOLOGY [place], [place] [address] (Wo rk) documented as of [...] Organization Address City/State/ZIP Code Phon e Number [place], [place] documented in this encounter Visit Diagnoses Not on filedocumented in this encounter Care Teams Window Display Designer Relationship Specialty Start Date End Date Bobby Das MD PCP - General 10/02/[address] [place] [address] [place] [phone] documented as of this encounter
--- OUTSIDE RECORDS SUMMARY | 2022-08-02 09:56 | XMS_ITS | Encounter Summary ---
:1940 Author Organization [facility] [place] [address] Care Team Providers Name Role Phone Bobby Das MD Primary Care Provider Encounter Details Date Type Department Care Team Description 08/06/2020 Ancillary Procedure Radiology at [facility] Amy Grimaldo [address] [place] [address] [address] JAY [phone] NEUROSURGERY-N Jovanny [place], [place] [address] Social History Tobacco Use Types [...] Negra Collins MD [facility] GASTROENTEROLOGY DEPT [place], [place] [address] (Wo rk) 09/05/2022 Appointment Cardiology Trinity Reid MD [facility] CARDIOLOGY [place], [place] [address] (Wo rk) 09/05/2022 Office Visit Cardiology Trinity Reid MD [facility] CARDIOLOG[facility] [place], [place] [address] (Wo rk) documented as of [...] Organization Address City/State/ZIP Code Phon e Number [place], [place] documented in this encounter Visit Diagnoses Not on filedocumented in this encounter Care Teams Director Business Development Relationship Specialty Start Date End Date Bobby Das MD PCP - General 10/02/[address] [place] [address] [place] [address] documented as of this encounter
--- OUTSIDE RECORDS SUMMARY | 2022-08-02 09:56 | XMS_ITS | Encounter Summary ---
:1940 Author Organization [facility] [place] [address] Care Team Providers Name Role Phone Bobby Das MD Primary Care Provider Reason for Referral Diagnostic Test (Routine) - Closed Specialty Diagnoses / Procedures Referred By Contact Refer red To Contact Radiology Diagnoses Compression fracture of T9 vertebra, initial encounter Alphonso Esquivel DO [facility] Interventionl Rad Procedures IR Vertebroplasty Thoracic [facility] DIAGNOSTIC [place] [address] [place] [address] Referral ID Status Reason Start Date Expiration Date Visits V isits Requested Authorized [id number] Closed Specialty 10/13/2020 04/13/2022 1 1 Service Requested Reason for Visit Diagnostic Test (Routine) - Closed Specialty Diagnoses / Procedures Referred By Contact Refer red To Contact Radiology Diagnoses Compression fracture of T9 vertebra, initial encounter Alphonso Esquivel DO [facility] Interventionl Rad Procedures IR Vertebroplasty Thoracic [facility] DIAGNOSTIC [place] [address] [place] [address] Referral ID Status Reason Start Date Expiration Date Visits V isits Requested Authorized [id number] Closed Specialty 10/13/2020 04/13/2022 1 1 Service Requested Encounter Details Date Type Department Care Team Description 10/25/2020 Hospital Encounter [facility] [place] [facility] Esquivel, Alphonso R, Compression fracture [facility] DO of T9 vertebra, [facility] initial encounter [place], [place] CENTER [address] DIAGNOSTIC [phone] [place] [address] Social History Tobacco Use Types Packs/Day Years [...] Vargas RN - 10/25/2020 9:13 AM EST [facility] Discharge Instructions for Vertebroplasty [...] is during regular office hours, please call [phone]. If it is after regular office hours, oron weekends or holidays, please call [phone] and ask to speak to the Supervisor Packing Room on callfor Interventional Radiology. XXX You have [...] of : 1940 AGE: 80 y.o. Address: [address] [place] [address] (home) Mobile: No relevant phone numbers on file. Referring Provider: Alphonso Esquivel REASON FOR VISIT: Order Questions Answers Where will study be performed? [facility] Radiology [120] Is the patient on [...] MD [facility] GASTROENTEROLOGY DEPT [place], [place] [address] (Wo rk) 09/05/2022 Appointment Cardiology Trinity Reid MD [facility] CARDIOLOGY [place], [place] [address] (Wo rk) 09/05/2022 Office Visit Cardiology Trinity Reid MD [facility] CARDIOLOGY [place], [place] [address] (Wo rk) documented as of [...] made and a 13g a introducer needle ([employer]) was advanced through the right pedicle and t o the ??T9 vertebral body during an intermittent fluoroscopic guidance. The [employer] biopsy cannula was advanced through the [...] was made and a 13ga introducer needle ([employer]igg[employer]) was advanced through the left pedicle and [...] the interservice administration of fentanyl and Versed [facility] continuous monitoring of blood pressure, oxygenation [...] made and a 13g a introducer needle ([employer]) was advanced through the right pedicle and t o the T9 vertebral body during an intermittent fluoroscopic guidance. The [place] biopsy cannula was advanced through the introducer [...] was made and a 13ga introducer needle (Wiggio) was advanced through the left pedicle and [...] Component Value Ref Test Analysis Performed At [facility] Method Time Signature Surgical [id number] ? Location: [address] [place] [address] Pathology [place] Report The signing pathologist has (i) examined [...] Bone & Soft Tissue Pathologist Performed at: ??-[facility] Dept. of Pathology, [place], [place] DISCUSSION I see no neoplastic process [...] PATHOLOGY/CYTOLOGY ORDERABLE S Performing Organization Address City/[facility]/[place] [address] Specimen to Pathology (10/25/2020 8:26 AM EST) Specimen Anatomical Collection Method Collection Time Receive d Time (Source) Location / / Volume Laterality AP Specimen 10/25/2020 8:26 AM 0 8:26 EST AM EST Narrative [facility] - 10/25/2020 8:26 AM EST Specimen requisition ordered. ??Separate Pathology report to follow Alphonso Esquivel DO PATHOLOGY/CYTOLOGY ORDERABLE S Performing Organization Address City/[facility] Code Phon e Number [address] documented in this encounter [...] Procedure) documented in this encounter Care Teams Goggles Assembler Relationship Specialty Start Date End Date Bobby Das MD PCP - General 10/02/[address] [place] [address] [place] [address] documented as of this encounter
--- OUTSIDE RECORDS SUMMARY | 2022-08-02 09:56 | XMS_ITS | Encounter Summary ---
:1940 Author Organization [facility] [address] Care Team Providers Name Role Phone Bobby Das MD Primary Care Provider Encounter Details Date Type Department Care Team Description 09/22/2020 Telephone [place]ine [place] [facility] [place] [address] Social History Tobacco Use Types Packs/Day [...] Collins MD [facility] GASTROENTEROLOGY DEPT [place], [place] [address] (Wo rk) 09/05/2022 Appointment Cardiology Trinity Reid MD [facility] ER CARDIOLOGY [place], [place] [address] (Wo rk) 09/05/2022 Office Visit Cardiology Trinity Reid MD [facility] CARDIOLOGY [place], [place] [address] (Wo rk) documented as of this encounter Visit Diagnoses Not on filedocumented in this encounter Care Teams Rn Child Relationship Specialty Start Date End Date Bobby Das MD PCP - General 10/02/[address] [place] [address] [place] [address] documented as of this encounter
--- OUTSIDE RECORDS SUMMARY | 2022-08-02 09:56 | XMS_ITS | Encounter Summary ---
:1940 Author Organization [facility] [place] [address] Care Team Providers Name Role Phone Bobby Das MD Primary Care Provider Reason for Referral Diagnostic Test (Routine) - Specialty Diagnoses / Procedures Referred By Contact Refer red To Contact Radiology Diagnoses Chest pain, unspecified type Chronic abdominal pain Chano Rebolledo MD [facility] Scan Procedures CT Chest w Contrast CT Chest wo Contrast (Generic) [facility] [place] [address] [place] [address] Referral ID Status Reason Start Date Expiration Visits Visits Date Requested Authorized [id number] Specialty 12/13/2016 12/13/2017 1 1 Service Requested Diagnostic Test (Routine) - Closed Specialty Diagnoses / Procedures Referred By Contact Refer red To Contact Radiology Diagnoses Chest pain, unspecified type Chronic abdominal pain Chano Rebolledo MD [facility] Scan Procedures CT Abdomen & Pelvis w Contrast [facility] [address] [place] [address] Referral ID Status Reason Start Date Expiration Date Visits V isits Requested Authorized [id number] Closed Specialty 12/13/2016 12/13/2017 1 1 Service Requested Reason for Visit Diagnostic Test (Routine) - Closed Specialty Diagnoses / Procedures Referred By Contact Refer red To Contact Radiology Diagnoses Chest pain, unspecified type Chronic abdominal pain Chano Rebolledo MD [facility] Scan Procedures CT Abdomen & Pelvis w Contrast [facility] [place] [address] [place] [address] Referral ID Status Reason Start Date Expiration Date Visits V isits Requested Authorized [id number] Closed Specialty 12/13/2016 12/13/2017 1 1 Service Requested Encounter Details Date Type Department Care Team Description 12/17/[address] Scan at [facility] Fanciullo, Chest pain, unspecified type ; [facility] Leonel Sullivan MD Chronic abdominal pain Drive [facility] [address] PAIN CLINIC [phone] [place] [address] Social History Tobacco Use Types [...] MD [facility] GASTRO[facility]OLOG[facility] DEPT [place], [place] [address] (Wo rk) 09/05/2022 Appointment Cardiology Trinity Reid MD [facility] [address] [place], [place] [address] (Wo rk) 09/05/2022 Office Visit Cardiology Trinity Reid MD [facility] [address] [place], [place] [address] (Wo rk) documented as [...] 12[address] documented in this encounter Care Teams Chain Saw Driver Relationship Specialty Start Date End Date Bobby Das MD PCP - General 10/02/[address] [place] [address] [place] [address] documented as of this encounter
--- OUTSIDE RECORDS SUMMARY | 2022-08-02 09:56 | XMS_ITS | Encounter Summary ---
:1940 [place] [address] Care Team Providers Name Role Phone Bobby Das MD Primary Care Provider Reason for Visit Reason Comments Left Leg Pain Auth/Cert Specialty Diagnoses / Procedures Referred By Contact Refer red To Contact Diagnoses Limb ischemia LLE thrombus Fito Summers MD [facility] [place] [address] Referral ID Status Reason Start Date Expiration Date Visits Requ ested Visits Authorized [id number] 1 1 Encounter Details Date Type Department Care Team Description 05/15/2022 Surgery Main Operating Room Savana Summers se, MD [facility] FEMOROPOSANG, [facility] VASCULAR SURG JULIAN [place] [address] LEG INCISION ([place] [address] 19.48) [phone] Social History Tobacco Use Types Packs/Day Years [...] onset Afib who presents in transfer from [facility] with acute limb ischemia [...] emergently went to the OR for L MATH TUTOR transverse arteriotomy and primary repair, thromboembolectomy of L SFA/PFA/MATH TUTOR, reperfusion venous drainage for 250 cc, and [...] Discharge Condition: Good Discharge to: Home with [facility] [address] [address] Future Appointments and Orders Future Appointments and Orders Future Appointments Provider Department Dept Phone 05/23/2022 10:30 AM Loretta Cohen MD Dermatology at [facility] Arrive at: Cat[facility] Operator [address] [place] [address] 06/07/2022 1:30 PM Gail Rae APRN Vascular Surgery at [facility] Arrive at: Cat[facility] Operator Area [phone] 06/13/2022 7:30 AM Edson Lagos [place] Vascular Lab at [facility] Arrive at: Cat[facility] Operator Area [phone] 06/13/2022 8:00 AM Fito Summers MD Vascular Surgery at [facility] Arrive at: Cathead Operator Area 3V [phone] 06/13/2022 10:00 AM Alan Reid MD Cardiology at [facility] Arrive at: Cathead Operator Area 4A [phone] Future Orders Complete By Expires Ziopatch 48 Hrs-15 Days [SPR7471 CPT(R)] 05/21/2022 11/20/2022 Process Instructions: Scheduling Instructions: Comments: Questions: Does the patient have a pacemaker? If yes provide HI/LO settings: Apply for 7 or 14 days?: 7 Where will study be performed?: [facility] Clinics JOSSELYN, legs, multiple levels [VAS8 Custom] 06/21/2022 (Approximate) 12/21/2022 Process Instructions: There is no in-house vascular medical laboratory technical officer available on weeknights (5pm-8am), weekends, or holidays. IF THIS IS A REQUEST FOR AN EMERGENT STUDY DURING THOSE HOURS, please have the senior provider responsible for the patient page the Vascular Surgery Fellow/Senior Resident food and nutrition supervisor to discuss options. Scheduling Instructions: Questions: Indication for study/signs & symptoms: ALI s/p L fem cutdown with thromboembolectomy Question to be answered: Perfusion to feet? Please check toe pressure Preferred location?: [facility] Referral to Cardiology [REF12 Custom] As [...] for admission to Home Health. [address] [facility][note 3] [id number] (home) Date of : 1940 Inpatient DOCUMENTATION FOR VNA SERVICES (INCLUDING THOSE PATIENTS WITH MEDICARE COVERAGE REQUIRING HOME VNA SERVICES AND/OR HOSPICE SERVICES) PATIENT'S LOCATION: Koko Zamora [address] [facility][note 3] [id number] (home) Cell: No relevant phone numbers on file. Junior Recruiter's Name: Koko In discussion with the attending physician, it is certified that this patient is under their care and that they, or a Nurse Practitioner,Clinical Nurse specialist or Physician Screen Printing Stencil Preparer who is working directly with them, had [...] for managing ADL's. HOME HEALTH CARE AGENCY: [facility] [address] [place] [id number] Start of care: Within 24 to 48 [...] obtained from this patient'sPCP: Bobby Das MD [address] [place] [address] / [place] [address] All VNA agencies which cover the [...] For any problems or questions please call [phone] For issues on weeknights after 5pm and weekends please call [phone] and ask for the Vascular Fellow food and nutrition supervisor. JOSEE Santiago Vascular Surgery 05/21/2022 documented in [...] For any problems or questions please call [phone] For issues on weeknights after 5pm and weekends please call [phone] and ask for the Vascular Fellow food and nutrition supervisor. documented in this encounter Medications at Time [...] 04/12/20 21 (FLONASE) 50 mcg/actuation Nare route [place], Suspension daily as needed. fluorouraciL (EFUDEX) 5 [...] onset Afib who presents in transfer from [facility] with acute limb ischemia [...] systolic dysfunction are new. Assessment & Plan: Kkoo Zamora is a 81 y.o. male admitted [...] status, full code. JOSEE Santiago 05/21/2022 Pager: [phone] PaBrannon gamino, PT - 05/21/2022 10:35 AM [...] plan as stated. Time IN / OUT: 2792-6518 Total Minutes, Physical Therapy: 25 Billing Code: 2 TA Brannon Isaacs DPT Pager: [phone] Physical Therapy Inpatient Rehabilitation Department [place] Jean [...] 04/17/2021 in Pain and Spine Center at [facility] Weight 79.8 kg (175 lb 14.8 oz) [...] and plan of care per Dr. Mcnamara (automobile body repairer helper). Please refer to her note above [...] to Hosp-Admission (Current) from 05/15/2022 in 4 [facility] Office Visit from 04/17/2021 in Pain and Spine Center at [facility] Weight 79.8 kg (175 lb 14.8 oz) [...] findings andplan of care per Dr. Mcnamara (automobile body repairer helper). Please refer to her note above [...] a mitral repair in 2000 (not at [facility]) with no CAD at that time. Currently, [...] AF and the first documented HR at [facility] was 125 bpm (presented to an an [...] onset Afib who presents in transfer from [facility] with acute limb ischemia [...] management following Dottie Hill APRN 05/20/2022 Pager: [phone] Laney Atkins RN - 05/20/2022 1:14 AM EDT Pt Koko transferred to room from [facility]. A&Ox4, oriented to room and call boo. Masimo and telemetry placed. In agreement with assessment as documented this evening by Nuris ASHLEY. No complaints at this time. Pt aware of NPO status and plan for cardiac cath in AM. Urinal provided. Resting comfortably in bed. Nuris Lester RN - 05/20/2022 1:09 AM EDT Pt. Transferred to [facility]. RN accompanied patient to floor and handed off to [facility] RN Dottie Hill APRN - 05/19/2022 10:02 AM EDT Vascular Surgery Progress Note Koko Zamora is a 81 y.o. male with w new onset Afib who presents in transfer from [facility] with acute limb ischemia [...] management following Dottie Hill APRN 05/19/2022 Pager: [phone] Emily Sauceda RN - 05/19/2022 6:28 AM EDT OUTCOME EVALUATION NOTE: OUTCOME SUMMARY: Patient AOx4, VSS on RA. Afib on tele. HR controlled w/ PRN metop, given x2. Denies CP, SOB, n/v. See flowsheets for NVC. Dressings to LLE CDI, prevena WV to groin intact. Voiding to urinal. LBM TIE INSPECTOR, patient stating he will maybe try the [...] adequately without difficulty to bedside urinal. LBM TIE INSPECTOR. Up to chair this AM with nursing staff. Worked with PT, tolerated well. Diet changed to regular at 1800.Plan is for cardiac cath on Friday. PLAN MOVING FORWARD: Bleeding precautions Pain management neurovascular checks PT/OT slab installer INDIVIDUALIZED FALL PREVENTION INTERVENTIONS: Patient-specific fall risk [...] onset Afib who presents in transfer from [facility] with acute limb ischemia [...] mL Intravenous BID ??? PHENobarbitaL 0.12 mg/kg/dose ([place]) Oral BID ??? thiamine 100 mg Oral [...] management following Dottie Hill APRN 05/18/2022 Pager: [phone] Brannon Isaacs, PT - 05/18/2022 10:00 AM [...] in this evaluation. Time IN / OUT: 3329-8902 Total Minutes, Physical Therapy: 30 Billing Code: Basilio Isaacs, PT Pager: [phone] Physical Therapy Inpatient Rehabilitation Department Emily Sauceda RN - 05/18/2022 4:34 AM EDT OUTCOME EVALUATION NOTE: OUTCOME SUMMARY: Patient AOx4, VSS on 2LNC. Afib on tele. HR above 120, MD aware, PRN IV metop given x1, HR returned to 90's-low 100's. Denies CP, SOB, n/v. See flowsheets for NVC. Dressings to LLE CDI, prevena WV to groin intact. Voiding to urinal. LBM TIE INSPECTOR. Heparin gtt therapeutic. Pain controlled. Patient sleeping [...] adequately without difficulty to bedside urinal. LBM TIE INSPECTOR. Patient not OOB this shift. Currently NPO awaitingprocedure in skilled labor. PLAN MOVING FORWARD: Bleeding precautions Pain management neurovascular checks PT/OT NPO for skilled labor INDIVIDUALIZED FALL PREVENTION INTERVENTIONS: Patient-specific fall [...] the Emergency Department as a transfer from [facility] with left lower extremity limb ischemia. He went to [facility] and was startedon heparin and transferred to [facility] for evaluation by vascular surgery with [...] he will will be going to the skilled labor for evaluation. Will defer PT eval at present but will see as ordered post cardiac catheritizaton. Social Hx:Pt lives with his Ursula in [place], [place] in a 2 level home in [...] WBAT LLE LISBET HERMAN PT Pager # [phone] In-Pt Rehab Medicine Dottie Hill APRN - 05/17/2022 7:42 AM EDT Vascular Surgery Progress Note Koko Zamora is a 81 y.o. male with w new onset Afib who presents in transfer from [facility] with acute limb ischemia [...] mL Intravenous BID ??? PHENobarbitaL 0.24 mg/kg/dose ([place]) Oral BID Followed by ??? [START ON 05/18/2022] PHENobarbitaL 0.12 mg/kg/dose ([place]) Oral BID ??? thiamine 100 mg Oral [...] management following Dottie Hill APRN 05/17/2022 Pager: [phone] Sary Dos Santos, RN - 05/17/2022 12:16 [...] onset Afib who presents in transfer from [facility] with acute limb ischemia [...] mL Intravenous BID ??? PHENobarbitaL 0.48 mg/kg/dose ([place]) Oral BID Followed by ??? [START ON 05/17/2022] PHENobarbitaL 0.24 mg/kg/dose ([place]) Oral BID Followed by ??? [START ON 05/18/2022] PHENobarbitaL 0.12 mg/kg/dose ([place]) Oral BID ??? thiamine 100 mg Oral [...] management following Edward Rodríguez MD 05/16/2022 Pager: [phone] Sary Dos Santos RN - 05/16/2022 12:52 [...] 2129 Hand off to DION Ramirez 3 quenemo documented in this encounter H&P Notes Kerry [...] onset Afib who presents in transfer from [facility] with acute limb ischemia [...] Refill ??? fluticasone propionate (FLONASE) 50 mcg/actuation [place], Suspension as needed. ??? fluorouraciL (EFUDEX) 5 [...] and consented. Tim Chicas MD 05/15/2022 Pager: [phone] documented in this encounter ED Notes Lc Harris PA - 05/15/2022 1:20 PM EDT ED Provider Note HPI: Koko Zamora is a 81 y.o. male with history of atrial fibrillation not on anticoagulation, and GI bleeding who presents to the Emergency Department as a transfer from [facility] with left lower extremity limb ischemia. Patient says that the symptoms started roughly 630 this morning when he developed severe pain in his left lower extremity. He went to [facility] and was started on heparin and transferred to [facility] for evaluation by vascular surgery. Review [...] src: Oral SpO2: 94 % O2 Device: VA O2 Flow Rate (L/min): 2 L/min Physical [...] lower extremity earlier today and went to [facility] where it was determined that he had ischemia of the left lower extremity. Vascular surgery [facility] was contacted and he was transferred [...] orders before pt. Arrival. Pt. Arrived at [facility] by EMS at 1150, vascular team at [...] in an outpatient cardiac rehabilitation program at [facility] was discussed. Patient agrees to a referral to this program. Timing will depend on his recovery from Vascular surgery. He is going home w/VNA PT. I gave him the brochure for the program at [facility] for future reference. Care [...] information for follow-up Home Health & Hospice, [place] [address] [place] [address] Transportation: family or friend will provide Functional [...] Type: *No Product type* / Secondary Insurance: [facility] Prescription Coverage: Yes This plan was formulated with input from patient and team. All are in agreement with plan. [facility]. Shawn (Satish) DION López RN/CM - Cellphone: [phone] Pager: [phone] Covering Service RN/CM Plan of Care - [...] catheterization, transferred in hospital bed accompanied by Quality Assurance Monitor RN, remains on telemetry monitoring. Heparin gtt [...] Type: *No Product type* / Secondary Insurance: [facility] Last Physical Therapy Recommendation: home with home health, home with supervision with None Last Occupational Therapy Recommendation: with Plan for discharge is: Home w/ Services Outpatient Agency/Support Group Needs: None Home Health Services: Registered Nurse, Physical Therapy, Occupational Therapy Agency Referrals: I have met with the patient to: ?? discuss discharge planning needs. ?? provide the [facility], Office of Care Management letter from the Psychology Lecturer pertaining to rehab referrals. ?? provide a letter describing our affiliations within the [facility] and educate about their right to choose where referrals are sent. ?? provide a list of Home Health Agencies / Durable Medical Equipment vendors which serve their preferred geographic area. ?? provided patient with [facility] Star Quality Rating handout. They have requested referrals to: [facility]. [address] [place] [address] Note routed to a Engine Repairer Production who will communicate referrals to facilities and provide any required information. Transportation: family or friend will provide Barriers to discharge: None Plan going forward: Patient is going for a cardiac cath today and plan will come from there. Patientwas recently seen by PT and they recommend VNA at time of discharge. [facility] was routed and pendedat this time. Care Management will continue to follow and assist with discharge planning and coordination of care as indicated. Anticipated Date of Discharge: 05/21/2022 Nataly RICHMOND RN Phone: [phone] Pager: [phone] Plan of Care - Laney Atkins RN [...] were not included. [facility] [place] [address] [address] [address] INPATIENT CARDIOLOGY CONSULT NOTE Date of Consultation: 05/17/2022 Admit Date: 05/15/2022 Hospital Day 2 days Reason for Consult: New afib Active Problems: Active Hospital Problems Diagnosis Limb ischemia Resolved Hospital Problems No resolved problems to display. HPI: Koko Zamora is a 81 y.o. male with a PMHx significant for MVP (s/p MV repair 2000), tobacco use, HLD, who presented to [facility] from OSH on 05/15 with acute limb ischemia of LLE and was found to be in atrial fibrillation. Patient had sudden onset LLE pain on 05/15 and presented to [facility], where he was started on heparin and transferred to [facility]. Upon arrival to [facility], patient was in atrial fib with RVR [...] mouth daily. fluticasone propionate (FLONASE) 50 mcg/actuation [place], Suspension as needed. ascorbic acid, vitamin C, [...] 5 mL Intravenous BID PHENobarbitaL 0.24 mg/kg/dose ([place]) Oral BID Followed by [START ON 05/18/2022] PHENobarbitaL 0.12 mg/kg/dose ([place]) Oral BID thiamine 100 mg Oral Daily folic acid 1,000 mcg Oral Daily multivitamin with minerals 1 tablet Oral Daily heparin (porcine) infusion 1,200 Units/hr (05/17/22 9960) Family History: No family history on file. [...] to Hosp-Admission (Current) from 05/15/2022 in 3 [facility] Office Visit from 04/17/2021 in Pain and Spine Center at [facility] Weight 79.8 kg (175 lb 14.8 oz) [...] continue to follow Anne-Marie Larson MD Pager [phone] Clinic: [phone] 05/17/22 6:22 PM Initial Assessments - Ifrah [...] spouse would be surrogate decision maker per [place] surrogate decision making law. (Only good for 180 days) Any patient receiving care at [facility] must abide by [place] law. The hierarchy for surrogate decision making [...] raised toilet seat Home Address confirmed as: [address] [place] [id number] Social & Family Supports: All names listed below confirmed with patient as Incorrect. Will notify toni to correct. Wifes address is same as and phone is [phone]. Extended Emergency Contact Information Primary Emergency Contact: Usrula Zamora Address: [address] [place] [address] [address] [place] [address] [facility] Relation: Spouse Current Care Provided [...] Type: *No Product type* / Secondary Insurance: [facility] Prescription Coverage: Yes Preferred Pharmacy: [id number] - [place], [place] - [address] [facility] [address] [facility] [address] [facility] - [place], [place] - [address] [facility] [address] [facility] [address] [place] Status: Patient is a : unable to assess Primary Care Provider: Bobby Das MD [phone] Patient/Caregiver Goals of Treatment: to walk again Potential Needs for Transition of Care: none noted per 05/16 IDR Transportation: family will provide Transportation Anticipated: family or friend will provide Concerns to be Addressed: no discharge needs identified Assessment: Patient is admitted to vascular surg service for left lower extremity limb ischemia Plan: Per PT OT recommendations . Has used [email or web address] in the past. A member of the Care Management team will continue to monitor progress, follow for continuity of care and assist with transition of care planning. Ifrah Bell RN BSN Test ManNurse Sitter of Care Management Pager [phone] Brief Op Note - Erin Garza MD - 05/15/2022 5:04 PM EDT Brief Operative Note Patient Name: Koko Zamora : [id number] MR#: [id number] Case Date: 05/15/2022 Surgeon: Surgeon(s) and Role: [...] Garza MD - 05/15/2022 2:08 PM EDT [facility] Operative Note Patient Name: Koko Zamora : [id number] MR#: [id number] Case Date: 05/15/2022 Surgeon: Surgeon(s) and Role: [...] MD [facility] GASTROENTEROLOGY DEPT [place], [place] [address] (Wo rk) 09/05/2022 Appointment Cardiology Trinity Reid MD [facility] CARDIOLOGY [place], [place] 0[address] (Wo rk) 09/05/2022 Office Visit Cardiology Trinity Reid MD [facility] CARDIOLOGY [place], [place] [address] (Wo rk) Scheduled Referrals Name [...] Component Value Ref Test Analysis Performed At [facility] Range Method Time Signature VB Text Department: Vascular Surgery Lab VASCUBASE Report Patient: [id number] (KOKO ZAMORA) CPT: 08287 Referring Physician: FITO SUMMERS ?? Phone: Indications: s/p L MATH TUTOR endart. Diabetes mellitus: no Findings: Right ?Pressure [...] P athologist Signature Heparin UFH 0.42 IU/mL [facility] LABORATORY Comment: Heparin (anti-Xa) levels [...] Organization Address City/State/[place] [address] Differential, Automated (05/21/2022 6:15 AM EDT) P athologist Signature Neutrophils % 58.8 % [facility] LABORATORY Neutr Abs (ANC) 3.97 1.70 - [facility] 6.10 [facility] x10(3)/[facility] LABORATORY Lymphocytes % 25.2 % [facility] LABORATORY Lymphocytes Abs 1.7 0.9 - 3.2 [facility] x10(3)/[facility] LABORATORY Monocytes % 12.9 % [facility] LABORATORY Monocyte Abs 0.9 0.3 - 0.9 [facility] x10(3)/[facility] LABORATORY Eosinophils % 2.1 % [facility] LABORATORY Eosinophils Abs 0.1 0.0 - 0.4 [facility] x10(3)/[facility] LABORATORY Basophils % 0.4 % [facility] LABORATORY Basophils Abs 0.0 0.0 - 0.1 [facility] x10(3)[facility] LABORATORY Immature Gran % 0.60 [...] Rain Gran Abs 0.04 0.00 - 0.04 x10(3)/[facility] LABORATORY Specimen Anatomical Collection Method Collection Time Receive d Time (Source) Location / / Volume Laterality Blood 05/21/2022 6:15 AM 2 6:38 EDT AM EDT Resulting Agency Comment Spec In Lab Edward Rodríguez MD HEMATOLOGY ORDERABLES Performing Organization Address City/State/[place] [address] (ABNORMAL) Hemogram (05/21/2022 6:15 AM EDT) [facility] gist Method Time Signature WBC 6.8 4.0 - 9.5 [facility] x10(3)/[facility] LABORATORY RBC 3.59 (L) 4.58 - [facility] 5.54 [facility] x10(6)/[facility] LABORATORY Hemoglobin 11.8 (L) 13.7 - [facility] 16.5 g/dL [facility] LABORATORY Hematocrit 34.5 (L) 40.5 - [facility] 48.5 % [facility] LAB[facility] MCV 96.1 (H) 82.9 - [facility] 93.1 [facility] LABORATORY MCH 32.9 (H) 27.5 - [facility] 32.1 pg [facility] LABORATORY MCHC 34.2 32.0 - [facility] 35.7 g/dL [facility] LABORATORY Platelets 198 145 - 357 [facility] x10(3)/[facility] LABORATORY RDWSD 44.9 36.0 - [facility] 45.0 [facility] LABORATORY RDWCV 12.6 11.4 - [facility] 13.8 % [facility] LABORATORY MPV 10.0 7.6 - 12.9 [facility] LABORATORY nRBC % Auto 0.3 % [facility] LABORATORY nRBC Abs Auto 0.020 (H) 0.000 - [facility] 0.000 [facility] x10(3)/[facility] LABORATORY Specimen Anatomical Collection Method Collection Time Receive d Time (Source) Location / / Volume Laterality Blood 05/21/2022 6:15 AM 2 6:38 EDT AM EDT Resulting Agency Comment Spec In Lab Edward Rodríguez MD HEMATOLOGY ORDERABLES Performing Organization Address City/State/Z[place] [address] EKG 12 Lead (05/20/2022 [...] Laterality Volume Narrative 05/20/2022 7:09 PM EDT ?[facility] ? Cardiac Cathete rization/Intervention Report ? Patient Name: Koko Zamora. ? Procedure Date: 05/20/2022 ? A #: [id number] ? Primary Physician: Abundio Servin ? Case #: [id number] ? File Name: [id number] ? Catheterization Order Number: [id number] ? [facility] ? Final Report [place], [place] ? Patient Name: ? Koko J. Klarissa uson ? ID#: ?[id number] ? : ?1940 ? Procedure Date: ? [...] procedure was Urgent. The indication for ?the skilled labor visit is cardiomyo nita. Chest pain [...] catheter and a 3.[address] ??20 Mhz. ??Imaging ?was successful. ??Image [...] premounted 2. 75 x 30 mm Rudy Dayton (AMPARO) was deployed ? with a maximum [...] may require ?modification of this regimen. [facility] Interventional Cardiology for ?questions. ?The 1 year [...] note might be different from the original. [facility] Cardiac Catheterization/Intervention Re port Patient Name: Koko aZmora Procedure Date: 05/20/2022 A #: [id number] Primary Physician: Abundio Servin Case #: File Name: [id number] Catheterization Order Number: [id number] [facility] Quality Assurance Monitor [facility] Final Report [place], [place] Patient Name: Koko Zamora ID#: [id number] : 1940 Procedure Date: May 20, 2022 [...] e was Urgent. The indication for the skilled labor visit is cardiomyopathy. C hest pain symptom [...] catheter and a 3.[address] 20 Mhz. Imaging was successful. Image [...] atmospheres. A premounted 2.75 x 30 mm [place] (AMPARO) was deployed with a maximum inflation [...] require modification of this regimen. Consult D [facility] Interventional Cardiology [...] Signature POC Glucose 123 65 - 199 [facility] mg/dL [facility] Comment: Supplemental ranges: <140 mg/dL before meals <180 mg/dL all other times of the day Specimen Anatomical Collection Method Collection Time Receive d Time (Source) Location / / Volume Laterality Blood 05/20/2022 5:42 PM 2 5:42 EDT PM EDT Fito Summers MD POINT OF CARE TEST ORDERABLE S Performing Organization Address City/State/[place] [address] (ABNORMAL) BMP w/fasting Glucose (05/20/2022 10:50 AM EDT) athologist Signature Glucose 152 (H) 65 - 99 [facility] Fasting mg/dL [facility] Comment: ?Fasting* Glucose Interpretive C [...] Organization Address City/State/[place] [address] Heparin (unfractionated) Level (05/20/2022 5:02 AM EDT) P athologist Signature Heparin UFH 0.57 IU/mL [facility] LABORATORY Comment: Heparin (anti-Xa) levels [...] Organization Address City/State/[place] [address] (ABNORMAL) Differential, Automated (05/20/2022 5:02 AM EDT) Patholo gist Method Time Signature Neutrophils % 58.1 % [facility] Neutr Abs (ANC) 4.52 1.70 - [facility] 6.10 [facility] x10(3)/[facility] LABORATORY Lymphocytes % 24.1 % [facility] Lymphocytes Abs 1.9 0.9 - 3.2 [facility] x10(3)/[facility] LABORATORY Monocytes % 13.8 % [facility] Monocyte Abs 1.1 (H) 0.3 - 0.9 [facility] x10(3)/[facility] LABORATORY Eosinophils % 2.6 % [facility] Eosinophils Abs 0.2 0.0 - 0.4 [facility] x10(3)/[facility] LABORATORY Basophils % 0.8 % [facility] Basophils Abs 0.1 0.0 - 0.1 [facility] x10(3)/[facility] LABORATORY Immature Gran % 0.60 % [facility] [...] Organization Address City/State/Z[place] [address] (ABNORMAL) Hemogram (05/20/2022 5:02 AM EDT) Analysis Performed At Patho logist Time Signature WBC 7.8 4.0 - 9.5 [facility] x10(3)/[facility] LABORATORY RBC 3.53 (L) 4.58 - [facility] 5.54 [facility] x10(6)/[facility] LABORATORY Hemoglobin 11.4 (L) 13.7 - [facility] 16.5 g/dL [facility] Hematocrit 34.3 (L) 40.5 - [facility] 48.5 % [facility] MCV 97.2 (H) 82.9 - [facility] 93.1 fL [facility] MCH 32.3 (H) 27.5 - [facility] 32.1 pg [facility] MCHC 33.2 32.0 - [facility] 35.7 g/dL [facility] Platelets 181 145 - 357 [facility] x10(3)/[facility] LABORATORY RDWSD 46.4 (H) 36.0 - [facility] 45.0 [facility] LABORATORY RDWCV 13.0 11.4 - [facility] 13.8 % [facility] MPV 10.4 7.6 - 12.9 [facility] LABORATORY nRBC % Auto 0.0 % [facility] nRBC Abs Auto 0.000 0.000 - [facility] 0.000 [facility] x10(3)/[facility] LABORATORY Specimen Anatomical Collection Method Collection Time Receive d Time (Source) Location / / Volume Laterality Blood 05/20/2022 5:02 AM 2 5:19 EDT AM EDT Resulting Agency Comment Spec In Lab Edward Rodríguez MD HEMATOLOGY ORDERABLES Performing Organization Address City/State/[place] [address] Heparin (unfractionated) Level (05/19/2022 3:26 AM EDT) athologist Signature Heparin UFH 0.59 IU/mL [facility] LABORATORY Comment: Heparin (anti-Xa) levels [...] Organization Address City/State/[place] [address] (ABNORMAL) Differential, Automated (05/19/2022 3:26 AM EDT) Patholo gist Method Time Signature Neutrophils % 62.1 % [facility] Neutr Abs (ANC) 4.59 1.70 - [facility] 6.10 [facility] x10(3)/[facility] LABORATORY Lymphocytes % 22.1 % [facility] Lymphocytes Abs 1.6 0.9 - 3.2 [facility] x10(3)/[facility] LABORATORY Monocytes % 13.5 % [facility] Monocyte Abs 1.0 (H) 0.3 - 0.9 [facility] x10(3)/[facility] LABORATORY Eosinophils % 1.3 % [facility] Eosinophils Abs 0.1 0.0 - 0.4 [facility] x10(3)/[facility] LABORATORY Basophils % 0.5 % [facility] Basophils Abs 0.0 0.0 - 0.1 [facility] x10(3)/[facility] LABORATORY Immature Gran % 0.50 % [facility] [...] Rain Gran Abs 0.04 0.00 - 0.04 x10(3)/[facility] LABORATORY Specimen Anatomical Collection Method Collection Time Receive d Time (Source) Location / / Volume Laterality Blood 05/19/2022 3:26 AM 3:59 EDT AM EDT Resulting Agency Comment Spec In Lab Edward Rodríguez MD HEMATOLOGY ORDERABLES Performing Organization Address City/State/Z[place] [address] (ABNORMAL) Hemogram (05/19/2022 3:26 AM EDT) Analysis Performed At Path logist Time Signature WBC 7.4 4.0 - 9.5 [facility] x10(3)/[facility] LABORATORY RBC 3.74 (L) 4.58 - [facility] 5.54 [facility] x10(6)/[facility] LABORATORY Hemoglobin 12.1 (L) 13.7 - [facility] 16.5 g/dL [facility] Hematocrit 36.4 (L) 40.5 - [facility] 48.5 % [facility] MCV 97.3 (H) 82.9 - [facility] 93.1 [facility] LABORATORY MCH 32.4 (H) 27.5 - [facility] 32.1 pg [facility] MCHC 33.2 32.0 - [facility] 35.7 g/dL [facility] Platelets 168 145 - 357 [facility] x10(3)/[facility] LABORATORY RDWSD 46.9 (H) 36.0 - [facility] 45.0 [facility] LABORATORY RDWCV 13.0 11.4 - [facility] 13.8 % [facility] MPV 10.5 7.6 - 12.9 [facility] nRBC % Auto 0.0 % [facility] nRBC Abs Auto 0.000 0.000 - [facility] 0.000 [facility] x10(3)/[facility] LABORATORY Specimen Anatomical Collection Method Collection Time Receive d Time (Source) Location / / Volume Laterality Blood 05/19/2022 3:26 AM 3:59 EDT AM EDT Resulting Agency Comment Spec In Lab Edward Rodríguez MD HEMATOLOGY ORDERABLES Performing Organization Address City/State/Z[place] [address] TSH (05/18/2022 8:00 PM EDT) P athologist Signature TSH 2.27 0.27 - 4.20 [facility] mcIU/mL [facility] Comment: Reference Interval (mcIU/mL): Females: ??First Trimester: 0.23-3.88 ??Second Trimester: 0.22-3.90 ??Third Trimester: 0.44-4.66 Specimen Anatomical Collection Method Collection Time Receive d Time (Source) Location / / Volume Laterality Blood 05/18/2022 8:00 PM 2 8:06 EDT PM EDT Resulting Agency Comment Spec In Lab Fito Summers MD CHEMISTRY ORDERABLES Performing Organization Address City/State/ZIP Code Phon e Number [facility] [place] [address] (ABNORMAL) Differential, Automated (05/18/2022 3:34 AM EDT) [facility] gist Method Time Signature Neutrophils % 67.2 % [facility]ORY Neutr Abs (ANC) 5.89 1.70 - [facility] 6.10 [facility] x10(3)/[facility] LABORATORY Lymphocytes % 17.1 % [facility]ORY Lymphocytes Abs 1.5 0.9 - 3.2 [facility] x10(3)/[facility] LABORATORY Monocytes % 13.6 % [facility]OR[facility]ORY Monocyte Abs 1.2 (H) 0.3 - 0.9 [facility] x10(3)/[facility] LABORATORY Eosinophils % 1.0 % [facility] Eosinophils Abs 0.1 0.0 - 0.4 [facility] x10(3)/[facility] LABORATORY Basophils % 0.6 % [facility]OR[facility]ORY Basophils Abs 0.0 0.0 - 0.1 [facility] x10(3)/[facility] LABORATORY Immature Gran % 0.50 % [facility] [...] Rain Gran Abs 0.04 0.00 - 0.04 x10(3)/[facility] LABORATORY Specimen Anatomical Collection Method Collection Time Receive d Time (Source) Location / / Volume Laterality Blood 05/18/2022 3:34 AM 2 3:48 EDT AM EDT Resulting Agency Comment Spec In Lab Edward N Facciponte MD HEMATOLOGY ORDERABLES Performing Organization Address City/[facility]/ZIP [place] [address] (ABNORMAL) Hemogram (05/18/2022 3:34 AM EDT) Analysis Performed At Patho logist Time Signature WBC 8.8 4.0 - 9.5 [facility] x10(3)/[facility] LABORATORY RBC 3.45 (L) 4.58 - [facility] 5.54 [facility] x10(6[facility] LABORATORY Hemoglobin 11.2 (L) 13.7 - [facility] 16.5 g/dL [facility] Hematocrit 33.0 (L) 40.5 - [facility] 48.5 % [facility] MCV 95.7 (H) 82.9 - [facility] 93.1 [facility] LABORATORY MCH 32.5 (H) 27.5 - [facility] 32.1 pg [facility] MCHC 33.9 32.0 - [facility] 35.7 g/dL [facility] Platelets 130 (L) 145 - 357 [facility] x10(3)/[facility] LABORATORY RDWSD 46.2 (H) 36.0 - [facility] 45.0 [facility] LABORATORY RDWCV 13.2 11.4 - [facility] 13.8 % [facility] MPV 10.8 7.6 - 12.9 [facility] LABORATORY nRBC % Auto 0.0 % [facility]ORY nRBC Abs Auto 0.000 0.000 - [facility] 0.000 [facility] x10(3)/[facility] LABORATORY Specimen Anatomical Collection Method Collection Time Receive d Time (Source) Location / / Volume Laterality Blood 05/18/2022 3:34 AM 3:48 EDT AM EDT Resulting Agency Comment Spec In Lab Edward Rodríguez MD HEMATOLOGY ORDERABLES Performing Organization Address City/[facility]/ZIP [place] [address] Heparin (unfractionated) Level (05/18/2022 3:34 AM EDT) athologist Signature Heparin UFH 0.59 IU/mL [facility] LABORATORY Comment: Heparin (anti-Xa) levels [...] Address City/State/ZIP Code Phon e Number [address] Magnesium (05/17/2022 3:33 AM EDT) athologist Signature Magnesium 0.76 0.69 - 1.07 [facility] mmol/L [facility] Specimen Anatomical Collection Method Collection Time Receive d Time (Source) Location / / Volume Laterality Blood Venous Draw / 05/17/2022 3:33 AM 05/17/20 4:05 Unknown EDT AM EDT Resulting Agency Comment Spec In Lab Dottie Hill APRN CHEMISTRY ORDERABLES Performing Organization Address City/State/ZIP Code Phon e Number [address] (ABNORMAL) Basic Metabolic Panel (non-fasting) (05/17/2022 3:33 AM EDT) athologist Signature Glucose Lvl 158 65 - 199 [facility] mg/dL [facility] Comment: Diabetes: >=200 mg/dL [...] Organization Address City/State/Z[place] [address] (ABNORMAL) Differential, Automated (05/17/2022 3:33 AM EDT) Patholo gist Method Time Signature Neutrophils % 65.5 % [facility]ORY Neutr Abs (ANC) 6.84 (H) 1.70 - [facility] 6.10 [facility] x10(3)/[facility] LABORATORY Lymphocytes % 19.7 % [facility]OR[facility]ORY Lymphocytes Abs 2.1 0.9 - 3.2 [facility] x10(3)/[facility] LABORATORY Monocytes % 13.1 % [facility] LABORATORY Monocyte Abs 1.4 (H) 0.3 - 0.9 [facility] x10(3)/[facility] LABORATORY Eosinophils % 0.6 % [facility]OR[facility]ORY Eosinophils Abs 0.1 0.0 - 0.4 [facility] x10(3)/[facility] LABORATORY Basophils % 0.6 % [facility] LABOR[facility]ORY Basophils Abs 0.1 0.0 - 0.1 [facility] x10(3)/[facility] LABORATORY Immature Gran % 0.50 [...] Organization Address City/State/Z[place] [address] (ABNORMAL) Hemogram (05/17/2022 3:33 AM EDT) Analysis Performed At [facility] logist Time Signature WBC 10.4 (H) 4.0 - 9.5 [facility] x10(3)/[facility] LABORATORY RBC 3.72 (L) 4.58 - [facility] 5.54 [facility] x10(6)/[facility] LABORATORY Hemoglobin 12.0 (L) 13.7 - [facility] 16.5 g/dL [facility] Hematocrit 36.4 (L) 40.5 - [facility] 48.5 % [facility] MCV 97.8 (H) 82.9 - [facility] 93.1 [facility] LABORATORY MCH 32.3 (H) 27.5 - [facility] 32.1 pg [facility] MCHC 33.0 32.0 - [facility] 35.7 g/dL [facility] Platelets 149 145 - 357 [facility] x10(3)/[facility] LABORATORY RDWSD 48.7 (H) 36.0 - [facility] RDWCV 13.5 11.4 - [facility] 13.8 % [facility] MPV 10.6 7.6 - 12.9 [facility] LABORATORY nRBC % Auto 0.0 % [facility] LABORATORY nRBC Abs Auto 0.000 0.000 - [facility] 0.000 [facility] x10(3)/[facility] LABORATORY Specimen Anatomical Collection Method Collection Time Receive d Time (Source) Location / / Volume Laterality Blood 05/17/2022 3:33 AM 3:53 EDT AM EDT Resulting Agency Comment Spec In Lab Edward Rodríguez MD HEMATOLOGY ORDERABLES Performing Organization Address City/State/[place] [address] (ABNORMAL) Urinalysis Microscopic Exam [...] Address City/State/ZIP Code Phon e Number [address] (ABNORMAL) Urinalysis with reflex Culture (05/16/2022 11:15 PM EDT) Patholo gist Method Time Signature Glucose UA Negative Negative [facility] mg/dL [facility] Protein UA Negative Negative [facility] mg/dL [facility] Bilirubin UA Negative Negative [facility] mg/dL [facility] Comment: Clinical correlation required for [...] [facility] LABORATORY Nitrite UA Negative Negative [facility] LABORATORY Leukocytes UA Negative Negative [facility] LABORATORY Appearance UA Clear Clear [facility] LABORATORY Spec [place] UA 1.021 1.005 - 1.030 [facility] LABORATORY Color UA Yellow Yellow [facility] LABORATORY Culture Reflexed No [facility] LABORATORY Specimen Anatomical Collection Method Collection Time Receive d Time (Source) Location / / Volume Laterality Clean Catch 05/16/2022 11:15 05/16/2022 Urine PM EDT 11:30 PM EDT Resulting Agency Comment Spec In Lab Fito Summers MD URINE ORDERABLES Performing Organization Address City/[facility]/[place] [address] Heparin (unfractionated) Level (05/16/2022 [...] Organization Address City/State/[place] [address] XR Chest One View [...] have questions please contact the health care assistant that requested your imaging first. [...] have questions please contact the health care assistant that requested your imaging first. Fito Summers [...] EDT) athologist Signature Heparin UFH 0.53 IU/mL [facility] LABORATORY Comment: Heparin (anti-Xa) levels [...] Organization Address City/State/[place] [address] ECHOCARDIOGRAM COMPLETE W CONTRAST (05/16/2022 12:49 PM EDT) athologist Signature EF 28 [facility] Anatomical Region Laterality Modality Cardiac Other Specimen (Source) Anatomical Collection Method Collection Time Re ceived Time Location / / Volume Laterality 05/16/2022 11:22 AM EDT Narrative 05/16/2022 1:54 PM EDT [facility] ?[address] ? [place] [address] ?Voice: ?Fax: ? Echocardiogram Report Name: KOKO ZAMORA ?Study Date: 05/16/2022 11:22 AM ? Patient Location: 3T 0303 B : 1940 ? Height: 67.5 in ? Account: [id number] Age: 81 yrs ? Weight: 176 lb Gender: Male ?BSA: 1.9 m2 Ordering Physician: FITO SUMMERS Referring Physician: MALI FLORIAN Performed By: Jolene Bernard RDCS Exam Location: [facility]. Interpretation Summary Left ventricle is mildly [...] and LV systolic dysfunction are new. Procedure Complete-[id number]. Image enhancement Optiso n was used for [...] note might be different from the original. [facility] [address] [place] [address] Voice: Fax: Echocardiogram Report Name: KOKO ZAMORA Study Date: 05/2022 11:22 AM Patient Location: [address] [place] [address] : 1940 Height: 67.5 in Account: [id number] Age: 81 yrs Weight: 176 lb Gender: Male BSA: 1.9 m2 Ordering Physician: FITO SUMMERS Referring Physician: MALI FLORIAN Performed By: Jolene Bernard RDCS Exam Location: [facility]. Interpretation Summary Left ventricle is mildly dilated. 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 The left ventricular ejection f raction is 28% by Gxaiola's biplane. Right ventricular systolic function is m ildly decreased. There is moderate aortic stenosis. The m campos gradient across the aortic valve is 13 mmHg. JUVENAL 1.2 cm2 S/P MV repair for prolapse. There is mil d mitral regurgitation. Compared with the prior TTE of 2, moderate and LV systolic dysfunction are new. Procedure Complete-[id number]. Image enhancement Optiso n was used for [...] (ABNORMAL) Differential, Automated (05/16/2022 3:01 AM EDT) [facility] Method Time Signature Neutrophils % 78.8 % [facility] LABORATORY Neutr Abs (ANC) 9.11 (H) 1.70 - [facility] 6.10 [facility] x10(3)/[facility] LABORATORY Lymphocytes % 9.4 % [facility] LABORATORY Lymphocytes Abs 1.1 0.9 - 3.2 [facility] x[facility](3[facility] LABORATORY Monocytes % 10.9 % [facility] LABORATORY Monocyte Abs 1.3 (H) 0.3 - 0.9 [facility] x10(3)/[facility] LABORATORY Eosinophils % 0.0 % [facility] LABORATORY Eosinophils Abs 0.0 0.0 - 0.4 [facility] x10(3)/[facility] LABORATORY Basophils % 0.3 % [facility] LABORATORY Basophils Abs 0.0 0.0 - 0.1 [facility] x10(3)/[facility] LABORATORY Immature Gran % 0.60 [...] Organization Address City/State/Z[place] [address] (ABNORMAL) Hemogram (05/16/2022 3:01 AM EDT) Analysis Performed At Patho logist Time Signature WBC 11.6 (H) 4.0 - 9.5 [facility] x10(3)/[facility] LABORATORY RBC 3.62 (L) 4.58 - [facility] 5.54 [facility] x10(6)/[facility] LABORATORY Hemoglobin 12.0 (L) 13.7 - [facility] 16.5 g/dL [facility] Hematocrit 35.3 (L) 40.5 - [facility] 48.5 % [facility] MCV 97.5 (H) 82.9 - [facility] 93.1 fL [facility] MCH 33.1 (H) 27.5 - [facility] 32.1 pg [facility] MCHC 34.0 32.0 - [facility] 35.7 g/dL [facility] Platelets 151 145 - 357 [facility] x10(3)/[facility] LABORATORY RDWSD 47.6 (H) 36.0 - [facility] 45.0 [facility] LABORATORY RDWCV 13.3 11.4 - [facility] 13.8 % [facility] LABORATORY MPV 10.5 7.6 - 12.9 [facility] LABORATORY nRBC % Auto 0.0 % [facility] LABORATORY nRBC Abs Auto 0.000 0.000 - [facility] 0.000 [facility] x10(3)/[facility] LABORATORY Specimen Anatomical Collection Method Collection Time Receive d Time (Source) Location / / Volume Laterality Blood 05/16/2022 3:01 AM 2 3:36 EDT AM EDT Resulting Agency Comment Spec In Lab Erin Garza MD HEMATOLOGY ORDERABLES Performing Organization Address City/[facility]/[place] [address] Phosphorus (05/16/2022 3:01 AM EDT) athologist Signature Phosphorus 3.7 2.5 - 4.5 [facility] mg/dL [facility]ORY Specimen Anatomical Collection Method Collection Time Receive d Time (Source) Location / / Volume Laterality Blood 05/16/2022 3:01 AM 2 3:36 EDT AM EDT Resulting Agency Comment Spec In Lab Fito Summers MD CHEMISTRY ORDERABLES Performing Organization Address City/[facility]/ZIP Code Phon e Number [address] Magnesium (05/16/2022 3:01 AM EDT) P athologist Signature Magnesium 0.77 0.69 - 1.07 [facility] mmol/L [facility] Specimen Anatomical Collection Method Collection Time Receive d Time (Source) Location / / Volume Laterality Blood 05/16/2022 3:01 AM 2 3:36 EDT AM EDT Resulting Agency Comment Spec In Lab Fito Summers MD CHEMISTRY ORDERABLES Performing Organization Address City/[facility]/[place] [address] (ABNORMAL) Basic Metabolic Panel (non-fasting) (05/16/2022 3:01 AM EDT) P athologist Signature Glucose Lvl 222 (H) 65 - 199 [facility] mg/dL [facility] Comment: Diabetes: >=200 mg/dL [...] Organization Address City/State/Z[place] [address] (ABNORMAL) BLOOD GAS 2 ARTERIAL (05/15/2022 3:33 PM EDT) Analysis Performed At Patho logist Time Signature pH Art 7.33 (L) 7.35 - [facility] 7.45 [facility] LABORATORY pCO2 Art 41 35 - 45 [facility] LABORATORY pO2 Art 131 (H) 85 - 104 [facility] LABORATORY HCO3 Art 21.1 20.0 - [facility] 26.0 [facility] mmol/L [facility] BE Art -4.8 (L) -3.0 - 3.0 [facility] mmol/L [facility] Hgb Blood Gas 13.4 (L) 13.7 - [facility] 16.5 g/dL [facility] O2HB Art 96.9 94.0 - [facility] 97.0 % [facility] COHB Art 1.4 % [facility] [...] Organization Address City/State/[place] [address] (ABNORMAL) BLOOD GAS 2 ARTERIAL (05/15/2022 2:06 PM EDT) Analysis Performed At Patho logist Time Signature pH Art 7.39 7.35 - [facility] 7.45 [facility] pCO2 Art 35 35 - 45 [facility] mmHg [facility] pO2 Art 135 (H) 85 - 104 [facility] LABORATORY HCO3 Art 20.8 20.0 - [facility] 26.0 [facility] mmol/[facility] LABORATORY BE Art -4.2 (L) -3.0 - 3.0 [facility] mmol/L [facility] Hgb Blood Gas 14.5 13.7 - [facility] 16.5 g/dL [facility] O2HB Art 97.2 (H) 94.0 - [facility] 97.0 % [facility] COHB Art 1.2 % [facility] [...] Blood 109 (H) 98 - 107 mmol/L [facility] Gluc Whole Bld 152 65 [...] Address City/[facility]/ZIP Code Phon e Number [place] [id number]OS[address] LAB[address]ORY Drive (ABNORMAL) Prothrombin Time (05/15/2022 12:30 PM EDT) P athologist Signature PT 12.9 (H) 9.4 - 12.5 [facility] LABORATORY INR 1.1 [facility] [...] Address City/[facility]/[place] [address] (ABNORMAL) APTT (05/15/2022 12:30 [...] Jhonny Morales HEMATOLOGY ORDERABLES Performing Organization Address City/[facility]/[place] [address] Gold Tube HOLD (05/15/2022 12:20 PM EDT) P athologist Signature Gold Hold Sample in [facility]. [facility] Specimen Anatomical Collection Method Collection Time Receive d Time (Source) Location / / Volume Laterality Blood No Charge / 05/15/2022 12:20 05/15/2022 Unknown PM EDT 12:20 PM EDT Lc TRIPP CHEMISTRY ORDERABLES Performing Organization Address City/[facility]/[place] [address] Type and Screen Validity (05/15/2022 12:00 PM EDT) [facility] [employer] Method Time Signature T&S only valid [facility] LABORATORY Comment: This Type and Screen result is only valid at the [facility] Hospital Specimen Anatomical Collection Method Collection Time Receive d Time (Source) Location / / Volume Laterality Blood 05/15/2022 12:00 05/15/2022 PM EDT 12:17 PM EDT Resulting Agency Comment Spec In Lab Lc TRIPP BLOOD BANK ORDERABLES Performing Organization Address City/[facility]/ZIP Code Phon e Number [address] ABORH Recheck Status (05/15/2022 12:00 PM EDT) [facility] [employer] Method Time Signature ABORH Recheck Order Placed [facility] LABORATORY ABORH Type Complete [facility] LABORATORY Specimen Anatomical Collection Method Collection Time Receive d Time (Source) Location / / Volume Laterality Blood 05/15/2022 12:00 05/15/2022 PM EDT 12:17 PM EDT Resulting Agency Comment Spec In Lab Lc TRIPP BLOOD BANK ORDERABLES Performing Organization Address City/State/ZIP [place] [address] CK (05/15/2022 12:00 PM EDT) P athologist Signature CK, Total 87 0 - 200 [facility] unit/L [facility] Specimen Anatomical Collection Method Collection Time Receive d Time (Source) Location / / Volume Laterality Blood Venous Draw / 05/15/2022 12:00 05/15/2022 Unknown PM EDT 12:19 PM EDT Resulting Agency Comment Spec In Lab Fito Summers MD CHEMISTRY ORDERABLES Performing Organization Address City/[facility]/[place] [address] Antibody screen (05/15/2022 12:00 PM EDT) [facility] gist Method Time Signature Ab Screen Negative [facility] LABORATORY Expires at 05/18/2022 [facility] 2359 on: [facility] Specimen Anatomical Collection Method Collection Time Receive d Time (Source) Location / / Volume Laterality Blood 05/15/2022 12:00 05/15/2022 PM EDT 12:17 PM EDT Resulting Agency Comment Spec In Lab Lc Dominick Kimberly TRIPP BLOOD BANK ORDERABLES Performing Organization Address City/[facility]/[place] [address] ABO/Rh Typing (05/15/2022 12:00 [...] Address City/[facility]/[place] [address] (ABNORMAL) Differential, Automated (05/15/2022 12:00 PM EDT) [facility] Method Time Signature Neutrophils % 79.4 % [facility] LABORATORY Neutr Abs (ANC) 7.49 (H) 1.70 - [facility] 6.10 [facility] x10(3)/[facility] LABORATORY Lymphocytes % 11.3 % [facility] LABOR[facility]ORY Lymphocytes Abs 1.1 0.9 - 3.2 [facility] x10(3)/[facility] LABORATORY Monocytes % 7.8 % [facility] LABORATORY Monocyte Abs 0.7 0.3 - 0.9 [facility] x10(3)/[facility] LABORATORY Eosinophils % 0.6 % [facility] LABORATORY Eosinophils Abs 0.1 0.0 - 0.4 [facility] x10(3)/[facility] LABORATORY Basophils % 0.6 % [facility] LABORATORY Basophils Abs 0.1 0.0 - 0.1 [facility] x10(3)/[facility] LABORATORY Immature Gran % 0.30 % [...] Rain Gran Abs 0.03 0.00 - 0.04 x10(3)/[facility] MAR Y [facility] LABOR[facility]ORY Specimen Anatomical Collection Method Collection Time Receive d Time (Source) Location / / Volume Laterality Blood 05/15/2022 12:00 05/15/2022 PM EDT 12:19 PM EDT Resulting Agency Comment Spec In Lab Lc TRIPP HEMATOLOGY ORDERABLES Performing Organization Address City/State/[place] [address] (ABNORMAL) Hemogram (05/15/2022 12:00 PM EDT) Analysis Performed At [facility] logist Time Signature WBC 9.4 4.0 - 9.5 [facility] x10(3)/[facility] LABORATORY RBC 4.48 (L) 4.58 - IFRAH FAYE 5.54 [facility] x10(6)/[facility] LABORATORY Hemoglobin 14.5 13.7 - [facility] 16.[facility] g/dL [facility] Hematocrit 42.4 40.5 - [facility] 48.5 % [facility] MCV 94.6 (H) 82.9 - [facility] 93.1 [facility] LABORATORY MCH 32.4 (H) 27.5 - [facility] 32.1 pg [facility] MCHC 34.2 32.0 - [facility] 35.7 g/dL [facility] Platelets 209 145 - 357 [facility] x10(3)/[facility] LABORATORY RDWSD 45.9 (H) 36.0 - [facility] 45.0 [facility] LABORATORY RDWCV 13.1 11.4 - [facility] 13.8 % [facility] MPV 10.5 7.6 - 12.9 [facility] LABORATORY nRBC % Auto 0.0 % [facility] LABORATORY nRBC Abs Auto 0.000 0.000 - [facility] 0.000 [facility] x10(3)/[facility] LABORATORY Specimen Anatomical Collection Method Collection Time Receive d Time (Source) Location / / Volume Laterality Blood 05/15/2022 12:00 05/15/2022 PM EDT 12:19 PM EDT Resulting Agency Comment Spec In Lab Lc TRIPP HEMATOLOGY ORDERABLES Performing Organization Address City/State/[place] [address] (ABNORMAL) Basic Metabolic Panel (non-fasting) (05/15/2022 12:00 PM EDT) athologist Signature Glucose Lvl 203 (H) 65 - 199 [facility] mg/dL [facility] Comment: Diabetes: >=200 mg/dL plus symp toms BUN 16 10 - 20 mg/dL [facility] LABORATORY Creatinine 0.84 0.80 - 1.50 mg/dL [facility] OCK [facility] LAB[facility] Sodium 141 135 - 145 [...] Organization Address City/State/[place] [address] documented in this encounter [...] - Provider: Barbie Joyce , RN)1750 ([facility] Hold - Provider: Admin Adt - Reason: Transfer to a Procedural area)1955 ([facility] Unhold - Provider: Admin Adt) 15 (Given - Provider: Etta contreras RN) 1,000 mcg, Oral, DAILY, First dose on 05/16/22 at 0900, Until Discontinued, Routine metoprolol tartrate (Lopressor) tablet 12.5 mg (CANCEL ED) 0838 (Given - Provider: Caroline Zamora, DION)2008 (Given - Provider: Nuris Lester RN) 0853 (Given - Provider: Brabie Joyce RN)1750 ([facility] Hold - Provider: Admin Adt - Reason: Transfer to a Procedural area)1955 ([facility] Unhold - Provider: Admin Adt)2004 [...] - Provider: Barbie Joyce , DION)1750 ([facility] Hold - Provider: Admin Adt - Reason: Transfer to a Procedural area)1955 ([facility] Unhold - Provider: Admin Adt) [...] mg 0838 (Given - Prov ider: Caroline Zamroa RN) 0853 (Given - Provider: Barbie Joyce [...] (Given - Provider: Barbie Joyce RN)1750 ([facility] Hold - Provider: Admin Adt - Reason: Transfer to a Procedural area)1955 ([facility] Unhold - Provider: Admin Adt) 0817 (Given - Provider: Etta contreras RN) 0.4 mg, Oral, DAILY, First dose on Fri at 0900, Until Discontinued, DO NOT CRUSH OR OPEN, Routine thiamine (Vitamin B1) tablet 100 mg 0838 (Given - Prov ider: Caroline Zamora RN) 0853 (Given - Provider: Barbie Joyce RN)1750 ([facility] Hold - Provider: Admin Adt - Reason: Transfer to a Procedural area)1955 ([facility] Unhold - Provider: Admin Adt) 0816 (Given - Provider: Etta contreras RN) 100 mg, Oral, DAILY, First dose on Fri at 0900, Until Discontinued, Routine valsartan (Diovan) tablet 40 mg 0838 (Given - Provider : Caroline Zamora, DION)2008 (Given - Provider: Nuris Lester RN) 0853 (Given - Provider: Barbie Joyce RN)1750 ([facility] Hold - Provider: Admin Adt - Reason: Transfer to a Procedural area)1955 ([facility] Unhold - Provider: Admin Adt)2005 [...] Adt) 0-8,000 Units, Intravenous, BOLUS PER TRE RSOARIO PROTOCOL, Starting on Brandi 05/16/22 at 0758, [...] Reason: Transfer to a Procedural area)1955 ([facility] Unhold - Provider: Admin Adt) [...]
Routine documented in this encounter Care Teams Wine Bottle Inspector Relationship Specialty Start Date End Date Bobby Das MD PCP - General 10/02/[address] [place] [address] [place] [address] documented as of this encounter
--- OUTSIDE RECORDS SUMMARY | 2022-08-02 09:56 | XMS_ITS | Encounter Summary ---
:1940 Author Organization [facility] Address [place] [address] Care Team Providers Name Role Phone Bobby Das MD Primary Care Provider Reason for Visit - Closed Specialty Diagnoses / Procedures Referred By Contact Refer red To Contact Procedures Bobby Das MD Film Library- Storage Only [facility] [place] [address] Referral ID Status Reason Start Date Expiration Date Visits Requ ested Visits Authorized [id number] Closed 02/23/2021 02/23/2022 1 1 Encounter Details Date Type Department Care Team Description 03/16/2020 Ancillary Procedure Radiology Library at Bobby Almaguer MD [address] [address] [phone] (Rebekah rojas) Social History Tobacco Use Types [...] MD [facility] GASTROENTEROLOGY DEPT [place], [place] 0[address] (Wo rk) 09/05/2022 Appointment Cardiology Trinity Reid MD [facility] ER CARDIOLOGY [place], [place] [address] (Wo rk) 09/05/2022 Office Visit Cardiology Trinity Reid MD [facility] ER CARDIOLOGY [place], [place] 0375 (Wo rk) documented as of [...] Organization Address City/State/ZIP Code Phon e Number [place], [place] documented in this encounter Visit Diagnoses Not on filedocumented in this encounter Care Teams Meal Cook Relationship Specialty Start Date End Date Bobby Das MD PCP - General 10/02/[address] [place] [address] [place] [phone] documented as of this encounter
--- OUTSIDE RECORDS SUMMARY | 2022-08-02 09:56 | XMS_ITS | Encounter Summary ---
:1940 [place] [address] Care Team Providers Name Role Phone Bobby Das MD Primary Care Provider Encounter Details Date Type Department Care Team Description 02/27/2021 Notes Only Radiology Matt Chisholm MD [facility] [place] [address] DIAGNOSTIC RADIOLOGY [phone] [place] [phone] (Wo rk) Social History Tobacco Use Types [...] [facility] DR GASTROENTEROLOGY DEPT [place], [place] 0[address] (Wo rk) 09/05/2022 Appointment Cardiology Trinity Reid MD [facility] CARDIOLOGY [place], [place] 0[address] (Wo rk) 09/05/2022 Office Visit Cardiology Trinity Reid MD [facility] CARDIOLOGY [place], [place] 0375 (Wo rk) documented as of this encounter Visit Diagnoses Not on filedocumented in this encounter Care Teams Health Concierge Relationship Specialty Start Date End Date Bobby Das MD PCP - General 10/02/[address] [place] [address] [place] [address] documented as of this encounter
--- OUTSIDE RECORDS SUMMARY | 2022-08-02 09:56 | XMS_ITS | Encounter Summary ---
:1940 Author Organization [facility] [place] [address] Care Team Providers Name Role Phone Bobby Das MD Primary Care Provider Reason for Referral Diagnostic Test (Routine) - Specialty Diagnoses / Procedures Referred By Contact Refer ramila To Contact Radiology Diagnoses Chest pain, unspecified type Chronic abdominal pain Cahno Rebolledo MD [facility] Rad Ct Scan Procedures CT Chest w Contrast CT Chest wo Contrast (Generic) [facility] [place] [address] [place] [address] Referral ID Status Reason Start Date Expiration Visits Visits Date Requested Authorized [id number] Specialty 12/13/2016 12/13/2017 1 1 Service Requested Consultation (Routine) - Closed Specialty Diagnoses / Procedures Referred By Contact Refer ramila To Contact Neurology Diagnoses Radiculopathy of cervical region Chano Rebolledo MD [facility] Neurology 3c [facility] [place] [address] [place] [address] Referral ID Status Reason Start Date Expiration Date Visits V isits Requested Authorized [id number] Closed Test Only 12/13/2016 12/13/2017 1 1 Diagnostic Test (Routine) - Closed Specialty Diagnoses / Procedures Referred By Contact Refer red To Contact Radiology Diagnoses Chest pain, unspecified type Chronic abdominal pain Chano Rebolledo MD [facility] Rad Ct Scan Procedures CT Abdomen & Pelvis w Contrast [facility] [place] [address] [place] [address] Referral ID Status Reason Start Date Expiration Date Visits V isits Requested Authorized [id number] Closed Specialty 12/13/2016 12/13/2017 1 1 Service Requested Reason for Visit Reason Comments Pain Management Neck Pain Bilateral Arm Pain burning across sternum and r ibs, both sides Consultation (Routine) - Closed Specialty Diagnoses / Procedures Referred By Contact Refer red To Contact Pain Management Diagnoses cervical radiculopathy Bobby Das MD [facility] [address] [place] [address] [address] [place], [place] Drive [address] [place] [address] Fax: Referral ID Status Reason Start Date Expiration Date Visits V isits Requested Authorized [id number] Closed Consult, 11/22/2016 11/22/2017 1 1 Test & Treat Encounter Details Date Type Department Care Team Description 12/13/2016 Office Visit Pain Management at [facility], Chest adrianna n, unspecified type; Jose Sullivan MD Chronic abdominal pain; [facility] Radiculop athy of cervical region [facility] [address] [place] PAIN CL[place]IC [address] [place] [address] Social History Tobacco Use Types [...] Rebolledo MD - 12/13/2016 1:00 PM EST [facility] [place] [address] Phone: PAIN MANAGEMENT NEW PATIENT / CONSULTATION NOTE DATE OF VISIT 12/13/2016 Patient Koko Zamora 1940 REFERRING PROVIDER Bobby Das MD [address] [place] [address] [place] [address] PRIMARY CARE PROVIDER Bobby Das MD CHIEF [...] Aspirin Other (See Comments) 06/28/2011 MEDICATIONS The [place] and [place] Prescription Monitoring Program were checked [...] restless FUNCTIONAL /SOCIAL Lives with: 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 Follow up: -Patient will be called after results are obtained. Koko J Zamora had the opportunity to ask questions and indicated that all questions were answered to his satisfaction. Thank you for this referral, Bobby Das MD [address] [place] [address]. Chano Rebolledo MD Leonel Orozco MD - [...] [facility] DR GASTROENTEROLOGY DEPT [place], [place] [address] (Wo rk) 09/05/2022 Appointment Cardiology Trinity Reid MD [facility] CARDIOLOGY [place], [place] [address]375 (Wo rk) 09/05/2022 Office Visit Cardiology Trinity Reid MD [facility] CARDIOLOGY [place], [place] 0[address] (Wo rk) Scheduled Referrals Name [...] site documented in this encounter Care Teams Winder Fixer Relationship Specialty Start Date End Date Bobby Das MD PCP - General 10/02/[address] [place] [address] [place] [phone] documented as of this encounter
--- OUTSIDE RECORDS SUMMARY | 2022-08-02 09:56 | XMS_ITS | Encounter Summary ---
:1940 Author Organization [facility] Address [facility] [place] [address] Care Team Providers Name Role Phone Bobby Das MD Primary Care Provider Reason for Visit - Closed Specialty Diagnoses / Procedures Referred By Contact Refer red To Contact Procedures Bobby Das MD Film Library- Storage Only DX [address] [place] [phone] Referral ID Status Reason Start Date Expiration Date Visits Requ ested Visits Authorized [id number] Closed 04/13/2021 04/13/2022 1 1 Encounter Details Date Type Department Care Team Description 01/31/2021 Ancillary Procedure Radiology Library at Bobby Almaguer MD [address] [address] [phone] (Rebekah rojas) Social History Tobacco Use Types [...] [facility] DR GASTROENTEROLOGY DEPT [place], [place] 0[address] (Wo rk) 09/05/2022 Appointment Cardiology Trinity Reid MD [facility] ER CARDIOLOGY [place] [address] (Wo rk) 09/05/2022 Office Visit Cardiology Trinity Reid MD [facility] ER CARDIOLOGY [place] [address] (Wo rk) documented as of [...] Organization Address City/State/ZIP Code Phon e Number [place], [place] documented in this encounter Visit Diagnoses Not on filedocumented in this encounter Care Teams It Security Administrator Relationship Specialty Start Date End Date Bobby Das MD PCP - General 10/02/[address] [place] [address] [place] [phone] documented as of this encounter
--- OUTSIDE RECORDS SUMMARY | 2022-08-02 09:56 | XMS_ITS | Encounter Summary ---
:1940 Author Organization [facility] Address [facility] [place] [address] Care Team Providers Name Role Phone Bobby Das MD Primary Care Provider Encounter Details Date Type Department Care Team Description 10/25/2020 Laboratory Appointment Lab at [facility] Compression fracture [facility] of T[address] [place] [address] Social History Tobacco Use Types Packs/Day Years [...] [facility] DR GASTROENTEROLOGY DEPT [place], [place] [address] (Wo rk) 09/05/2022 Appointment Cardiology Trinity Reid MD [facility] CARDIOLOGY [place], [place] [address] (Wo rk) 09/05/2022 Office Visit Cardiology Trinity Reid MD [facility] CARDIOLOGY [place], [place] 0375 (Wo rk) documented as of this encounter Procedures Procedure Name Priority Date/Time Associated Diagnosis Comme [facility] VENIPUNCTURE Routine 10/25/2020 6:35 AM [...] athologist Signature Platelets 192 145 - 357 [facility] x10(3)/[facility] LABORATORY Plat Immature 2.6 0.0 - 7.4 [facility] % % [facility] LABORATORY Comment: Limitation of the Immature Platelet Frac tion (IPF)-May be less reliable when the platelet count is less than 47c533/u L due to statistical imprecision. The IPF [...] in a decreased state of production. References: [employer] The Clinical Value of the Immature Platelet Fraction (IPF) in Cell Recovery Document Number 10-1143 04/2011 [employer] The Role of the Imm ature [...] Organization Address City/State/[place] [address] Prothrombin Time (10/25/2020 6:35 AM EST) athologist Signature PT 10.8 9.4 - 12.5 [facility] LABORATORY INR 1.0 [facility] LABORATORY Comment: An [...] Organization Address City/State/ZIP Code Phon e Number [place] [id number] HOSPITAL LABORATORY [address] documented in this encounter Visit Diagnoses Diagnosis Compression fracture of T9 vertebra, ini tial encounter documented in this encounter Care Teams Door Puller Relationship Specialty Start Date End Date Bboby Das MD PCP - General 10/02/[address] [place] [address] [place] [phone] documented as of this encounter
--- OUTSIDE RECORDS SUMMARY | 2022-08-02 09:56 | XMS_ITS | Encounter Summary ---
:1940 [place] [address] Care Team Providers Name Role Phone Bobby Das MD Primary Care Provider Encounter Details Date Type Department Care Team Description 10/13/2020 Notes Only Radiology at [facility] Alphonso Esquivel [facility] [place] [address] DIAGNOSTIC RADIOLOGY [phone] [place] [phone] (Wo rk) Social History Tobacco Use Types [...] 08/08/2022 Office Visit Gastroenterology Negar Collins MD [facility] GASTROENTEROLOGY DEPT [place], [place] [address] (Wo rk) 09/05/2022 Appointment Cardiology Trinity Reid MD [facility] CARDIOLOGY [place], [place] [address] (Wo rk) 09/05/2022 Office Visit Cardiology Trinity Reid MD [facility] CARDIOLOGY [place], [place] [address] (Wo rk) documented as of this encounter Visit Diagnoses Not on filedocumented in this encounter Care Teams Director Of Logistics Relationship Specialty Start Date End Date Bobby Das MD PCP - General 10/02/[address] [place] [address] [place] [phone] documented as of this encounter
--- OUTSIDE RECORDS SUMMARY | 2022-08-02 09:56 | XMS_ITS | Encounter Summary ---
:1940 Author Organization [place] [address] Care Team Providers Name Role Phone Bobby Das MD Primary Care Provider Encounter Details Date Type Department Care Team Description 07/20/2019 Laboratory Lab 3L Ifrah Gastrointestina l Appointment [facility] hemorrhag e, unspecified Hospital gastrointestinal [facility] [place] [phone] Social History Tobacco Use Types Packs/Day Years [...] [facility] DR GASTROENTEROLOGY DEPT [place], [place] [address] (Wo rk) 09/05/2022 Appointment Cardiology Trinity Reid MD [facility] CARDIOLOGY [place], [place] [address] (Wo rk) 09/05/2022 Office Visit Cardiology Trinity Reid MD [facility] CARDIOLOGY [place], [place] [address] (Wo rk) documented as of this encounter Procedures Procedure Name Priority Date/Time Associated Diagnosis Comme [facility] HEMOGRAM Routine 07/20/2019 8:18 Gastrointestinal Results [...] Time Signature WBC 6.0 4.0 - 9.5 [facility] LABORATORY RBC 4.50 (L) 4.58 - [facility] 5.54 [facility] x10(6)/[facility] LABORATORY Hemoglobin 14.8 13.7 - [facility] 16.5 gm/dL [facility] LABORATORY Hematocrit 43.9 40.5 - [facility] 48.5 % [facility] LABORATORY MCV 97.6 (H) 82.9 - [facility] 93.1 [facility] LABORATORY MCH 32.9 (H) 27.5 - [facility] 32.1 pg [facility] LABORATORY MCHC 33.7 32.0 - [facility] 35.7 gm/dL [facility] LABORATORY Platelets 164 145 - 357 [facility] x10(3)/[facility] LABORATORY RDWSD 49.3 (H) 36.0 - [facility] 45.0 [facility] LABORATORY RDWCV 13.6 11.4 - [facility] 13.8 % [facility] LABORATORY MPV 10.0 7.6 - 12.9 [facility] LABORATORY nRBC % Auto 0.0 % [facility] LABORATORY nRBC Abs Auto 0.000 0.000 - [facility] 0.000 [facility] x10(3)/[facility] LABORATORY Specimen Anatomical Collection Method Collection Time Receive d Time (Source) Location / / Volume Laterality Blood specimen 07/20/2019 8:18 AM 019 8:21 (specimen) EDT AM EDT Resulting Agency Comment Spec In Lab Bobby Marshall MD HEMATOLOGY ORDERABLES Performing Organization Address City/State/[place] [address] Prothrombin Time (07/20/2019 8:18 AM EDT) P athologist Signature PT 11.3 9.4 - 12.5 [facility] LABORATORY INR 1.0 [facility] [...] Organization Address City/State/[place] [address] documented in this encounter Visit Diagnoses Diagnosis Gastrointestinal hemorrhage, unspecified gastrointestinal hemorrhage type documented in this encounter Care Teams Woodwork Salvage Inspector Relationship Specialty Start Date End Date Bobby Das MD PCP - General 10/02/[address] [place] [address] Dr [place], [place] [phone] documented as of this encounter
--- OUTSIDE RECORDS SUMMARY | 2022-08-02 09:56 | XMS_ITS | Encounter Summary ---
:1940 Author Organization [facility] [place] [address] Care Team Providers Name Role Phone Bobby Das MD Primary Care Provider Encounter Details Date Type Department Care Team Description 05/15/2022 Ancillary Procedure Radiology Library at [facility], Lavell Butt, [facility] [place] [address] VASCULAR SURGERY [phone] [place] [id number] (Wo rk) Social History Tobacco Use Types [...] MD [facility] DR GASTROENTEROLOGY DEPT [place], [place] 0[address] (Wo rk) 09/05/2022 Appointment Cardiology Trinity Reid MD [facility] CARDIOLOGY [place], [place] [address] (Wo rk) 09/05/2022 Office Visit Cardiology Trinity Reid MD [facility] CARDIOLOGY [place], [place] [address] (Wo rk) documented as of [...] Organization Address City/State/ZIP Code Phon e Number [place], [place] documented in this encounter Visit Diagnoses Not on filedocumented in this encounter Care Teams Interior Paneler Relationship Specialty Start Date End Date Bobby Das MD PCP - General 10/02/[address] [place] [address] [place] [phone] documented as of this encounter
--- OUTSIDE RECORDS SUMMARY | 2022-08-02 09:56 | XMS_ITS | Encounter Summary ---
:1940 Author Organization [facility] [place] [address] Care Team Providers Name Role Phone Bobby Das MD Primary Care Provider Encounter Details Date Type Department Care Team Description 09/06/2020 Ancillary Procedure Radiology at [facility] Amy Grimaldo [address] [place] [address] 10 [address] JAY [phone] NEUROSURGERY-N [place]ov[place], [place] [address] Social History Tobacco Use Types [...] Collins MD [facility] GASTROENTEROLOGY DEPT [place], [place] [address] (Wo rk) 09/05/2022 Appointment Cardiology Trinity Reid MD [facility] CARDIOLOGY [place], [place] [address] (Wo rk) 09/05/2022 Office Visit Cardiology Trinity Reid MD [facility] CARDIOLOGY [place], [place] [address] (Wo rk) documented as of [...] Organization Address City/State/ZIP Code Phon e Number [place], [place] documented in this encounter Visit Diagnoses Not on filedocumented in this encounter Care Teams Refrigerated National Truck Driver Relationship Specialty Start Date End Date Bobby Das MD PCP - General 10/02/[address] [place] [address] [place] [phone] documented as of this encounter
--- OUTSIDE RECORDS SUMMARY | 2022-08-02 09:56 | XMS_ITS | Encounter Summary ---
:1940 Author Organization [facility] [place] [address] Care Team Providers Name Role Phone Bobby Das MD Primary Care Provider Encounter Details Date Type Department Care Team Description 06/26/2018 Ancillary Procedure Radiology Library at Bobby Almaguer MD [facility] [address] [place] [phone] (Wo rk) Social History Tobacco Use Types Packs/Day Years Used Date Current Some Day Smoker 1 50 Smokeless Tobacco: Never Used Sex Assigned at Date Recorded Not on file documented as of this encounter Plan of Treatment Upcoming Encounters Date Type Specialty Care Team Description 08/08/2022 Office Visit Gastroenterology Negra Collins MD [facility] DR GASTROENTEROLOGY DEPT [place], [place] [address] (Wo rk) 09/05/2022 Appointment Cardiology Trinity Reid MD [facility] CARDIOLOGY [place], [place] [address] (Wo rk) 09/05/2022 Office Visit Cardiology Trinity Reid MD [facility] CARDIOLOGY [place], [place] [address] (Wo rk) documented as of [...] Organization Address City/State/ZIP Code Phon e Number [place], [place] documented in this encounter Visit Diagnoses Not on filedocumented in this encounter Care Teams Extrusion Die Repairer Relationship Specialty Start Date End Date Bobby Das MD PCP - General 10/02/[address] [place] [address] [place] [phone] documented as of this encounter
--- OUTSIDE RECORDS SUMMARY | 2022-08-02 09:56 | XMS_ITS | Encounter Summary ---
:1940 Author Organization [facility] [place] [address] Care Team Providers Name Role Phone Bobby Das MD Primary Care Provider Reason for Referral Consultation (Routine) - Closed Specialty Diagnoses / Procedures Referred By Contact Refer red To Contact Neurology Diagnoses Low back pain, non-specific Status post vertebroplasty Transient left leg weakness EMG Arpita Whitney APRN [facility] [address] [place], [place] [address] [place] [phone] Fax: Referral ID Status Reason Start Date Expiration Date Visits V isits Requested Authorized [id number] Closed Consult, 04/17/2021 04/17/2022 1 1 Test & Treat hysical Therapy (Routine) - Specialty Diagnoses / Procedures Referred By Contact Refer red To Contact Diagnoses Low back pain, non-specific Status post vertebroplasty [place] [address] Referral ID Status Reason Start Date Expiration Date Visits V isits Requested Authorized [id number] Evaluate and 04/17/2021 10/14/2021 12 12 Treat Reason for Visit Reason Comments Back Pain new patient visit Consultation (Routine) - Closed Specialty Diagnoses / Procedures Referred By Contact Refer red To Contact [facility] Diagnoses Low back pain Pain - Low back pain/ MRI 02/20/21 & XR 01/31/21 @ [facility] Bobby Das MD [facility] Pain And [address] [place], [place] [address] [address] [place] [address] Phone: Fax: Referral ID Status Reason Start Date Expiration Date Visits Requ ested Visits Authorized [id number] Closed 03/07/2021 03/07/2022 1 1 Encounter Details Date Type Department Care Team Description 04/17/2021 Office Visit [facility] Sp[facility] Arpita Whitney Lo w back pain, non-specific; at [facility] UMBRELLA SUPERVISOR Status post vertebroplasty; [facility] Tra nsient left leg weakness Drive [place], [place] [phone] Social History Tobacco [...] from the original note were not included. [facility] [...] here for today. Had lumbar imaging and [facility] as ordered by PCP with [...] standing limited due to back pain [facility] Prescription Monitoring Program was checked. The number of prescriptions reported was 0. Current Medications: Outpatient Medications Marked as Taking for the 04/17/21 encounter (Office Visit) with Arpita Whitney APRN Medication Sig Dispense Refill ??? fluticasone propionate (FLONASE) 50 mcg/actuation [place], Suspension as needed. ??? fluorouraciL (EFUDEX) 5 [...] IR Biopsy Spine 07/20/2019 Bobby Marshall MD [facility] RAD ??? IR VERTEBROPLASTY LUMBAR MULTIPLE LEVELS 07/20/2019 IR Vertebroplasty Lumbar Multiple Levels 07/20/2019 Bobby Marshall MD [facility] RAD ??? IR VERTEBROPLASTY THORACIC SINGLE LEVEL 10/25/2020 IR Vertebroplasty Thoracic Single Level 10/25/2020 Matt Chisholm MD [facility] RAD Review of Systems: ROS: Denies [...] y.o. year-old male who presents to the [facility] for [facility] Spine clinic, previously [...] Mr. Koko Zamora's care. Arpita Whitney, MSN, HAND RUG BRAIDER- C, UMBRELLA SUPERVISOR Nurse Practitioner [facility] [address] [phone] / [facility] documented in this encounter Plan of Treatment Upcoming Encounters Date Type Specialty Care Team Description 08/08/2022 Office Visit Gastroenterology Negra Collins MD [facility] GASTROENTEROLOGY DEPT [place], [place] [address] (Wo rk) 09/05/2022 Appointment Cardiology Trinity Reid MD [facility] CARDIOLOGY [place], [place] [address] (Wo rk) 09/05/2022 Office Visit Cardiology Trinity Reid MD [facility] CARDIOLOGY [place], [place] [address] (Wo rk) Scheduled Referrals Name [...] documented in this encounter Care Teams Rn Cardiac Relationship Specialty Start Date End Date Bobby Das MD PCP - General 10/02/[address] [place] [address] [place] [phone] documented as of this encounter
--- OUTSIDE RECORDS SUMMARY | 2022-08-02 09:56 | XMS_ITS | Encounter Summary ---
:1940 Author Organization [facility] [place] [address] Care Team Providers Name Role Phone Bobby Das MD Primary Care Provider Reason for Referral Diagnostic Test (Routine) - Closed Specialty Diagnoses / Procedures Referred By Contact Refer red To Contact Radiology Diagnoses 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, sequela Closed compression fracture of L1 lumbar vertebra with delayed healing, subsequent encounter Malignant neoplasm of prostate Zbigniew Thompson PA [facility] Interventionl Rad Procedures IR Vertebroplasty Lumbar Multiple Levels IR Vertebral Augmentation Lumbar Single Level [facility] [place] [address] [place] [address] Fax: Referral ID Status Reason Start Date Expiration Date Visits V isits Requested Authorized [id number] Closed Specialty 07/13/2019 07/12/2020 1 1 Service Requested iagnostic Test (Routine) - Closed Specialty Diagnoses / Procedures Referred By Contact Refer red To Contact Radiology Diagnoses Closed compression fracture of L1 lumbar vertebra with delayed healing, subsequent encounter Malignant neoplasm of prostate Zbigniew Thompson PA [facility] Interventionl Rad [place] [address] [place] [address] Fax: Referral ID Status Reason Start Date Expiration Date Visits V isits Requested Authorized [id number] Closed Specialty 07/13/2019 07/12/2020 1 1 Service Requested Reason for Visit Reason Comments Back Pain Consultation (ANDREINA) - Closed Specialty Diagnoses / Procedures Referred By Contact Refer red To Contact [facility] Sp[facility] Center Diagnoses Collapsed vertebra, not elsewhere classified, lumbar region, subsequent encounter for fracture with routine healing Bobby Das MD [facility] And [facility] [address] [place], [place] [address] [address] [place] [address] Phone: Fax: Referral ID Status Reason Start Date Expiration Date Visits V isits Requested Authorized [id number] Closed Consult, 06/30/2019 06/29/2020 1 1 Test & Treat Connection Center Encounter Details Date Type Department Care Team Description 07/13/2019 Office Visit [facility] Zbigniew Thompson, Closed compression fracture of L1 lumbar vertebra with delayed healing, subsequent encounter; at [facility] [place] Malignant neoplasm of prostate; [facility] Age -related 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, sequela [address] [place], [place] [address] [phone] Social History Tobacco Use Types Packs/Day Years [...] Gastroenterology Negra Collins MD [facility] DR GASTROENTEROLOGY DEPT [place], [place] [address] (Wo rk) 09/05/2022 Appointment Cardiology Trinity Reid MD [facility] CARDIOLOGY [place], [place] [address] (Wo rk) 09/05/2022 Office Visit Cardiology Trinity Reid MD [facility] CARDIOLOGY [place], [place] [address] (Wo rk) documented as of [...] made and a 13g a introducer needle (Floop) was advanced through the right pedicle and [...] made an d a 13ga introducer needle (Floop) was advanced through the left pedicle and [...] made and a 13g a introducer needle (Floop) was advanced through the right pedicle and [...] made an d a 13ga introducer needle (Floop) was advanced through the left pedicle and [...] made and a 13g a introducer needle (Floop) was advanced through the right pedicle and [...] made an d a 13ga introducer needle (Floop) was advanced through the left pedicle and [...] made and a 13g a introducer needle (Floop) was advanced through the right pedicle and [...] made an d a 13ga introducer needle (Floop) was advanced through the left pedicle and [...] sequela documented in this encounter Care Teams Cloth Classer Relationship Specialty Start Date End Date Bobby Das MD PCP - General 10/02/[address] [place] [address] [place] [phone] documented as of this encounter
--- OUTSIDE RECORDS SUMMARY | 2022-08-02 09:56 | XMS_ITS | Encounter Summary ---
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, sequela Closed compression fracture of L1 lumbar vertebra with delayed healing, subsequent encounter Malignant neoplasm of prostate Zbigniew Thompson PA [facility] Interventionl Rad Procedures IR Vertebroplasty Lumbar Multiple Levels IR Vertebral Augmentation Lumbar Single Level [facility] [place] [address] [place] [address] Fax: Referral ID Status Reason Start Date Expiration Date Visits V isits Requested Authorized [id number] Closed Specialty 07/13/2019 07/12/2020 1 1 Service Requested iagnostic Test (Routine) - Closed Specialty Diagnoses / Procedures Referred By Contact Refer red To Contact Radiology Diagnoses Closed compression fracture of L1 lumbar vertebra with delayed healing, subsequent encounter Malignant neoplasm of prostate Zbigniew Thompson PA [facility] Interventionl Rad Procedures [place] [address] [place] [address] Fax: Referral ID Status Reason Start Date Expiration Date Visits V isits Requested Authorized [id number] Closed Specialty 07/13/2019 07/12/2020 1 1 Service Requested Reason for Visit Diagnostic Test (Routine) - Closed Specialty Diagnoses / Procedures Referred By Contact Refer red To Contact Radiology Diagnoses 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, sequela Closed compression fracture of L1 lumbar vertebra with delayed healing, subsequent encounter Malignant neoplasm of prostate Zbigniew Thompson, PA [facility] Interventionl Rad Procedures IR Vertebroplasty Lumbar Multiple Levels IR Vertebral Augmentation Lumbar Single Level [facility] [place] [facility] [place] [address] [place] [address] Fax: Referral ID Status Reason Start Date Expiration Date Visits V isits Requested Authorized [id number] Closed Specialty 07/13/2019 07/12/2020 1 1 Service Requested Encounter Details Date Type Department Care Team Description 07/20/2019 Hospital Encounter Radiology at [facility] Elmer Loya, Closed compression fracture of L1 lumbar vertebra with delayed healing, subsequent encounter; [facility] Malignant neoplasm of prostate; Drive [facility] Age-related osteoporosis wit h current pathological fracture of vertebra, sequela [place], [place] CENTER [address] SPINE CENTER [phone] [place] [address] Social History Tobacco Use Types Packs/Day Years [...] RN - 07/20/2019 10:06 AM EDT [facility] Discharge Instructions for Vertebroplasty Your vertebroplasty was [...] is during regular office hours, please call [phone]. If it is after regular office hours, oron weekends or holidays, please call [phone] and ask to speak to the Rock Lather on callfor Interventional Radiology. XXX You have [...] of : 1940 AGE: 78 y.o. Address: [address] [place] [address] [place] [phone] (home) Mobile: No relevant phone numbers on file. Referring Provider: Zbigniew Thompson REASON FOR VISIT: Order Questions Answers Where will study be performed? [facility] Radiology [120] Specify location Lumbar Reason for [...] Collins MD [facility] GASTROENTEROLOGY DEPT [place], [place] [address] (Wo rk) 09/05/2022 Appointment Cardiology Trinity Reid MD [facility] CARDIOLOGY [place], [place] [address] (Wo rk) 09/05/2022 Office Visit Cardiology Trinity Reid MD [facility] CARDIOLOGY [place], [place] [address] (Wo rk) documented as [...] Hx of prostate CA. Discussed with Dr. rBink; Exam/Procedu re requested: Request L1 vertebroplasty and [...] made and a 13g a introducer needle ([employer]) was advanced through the right pedicle [...] made an d a 13ga introducer needle ([employer]) was advanced through the left pedicle and [...] made and a 13g a introducer needle ([employer]) was advanced through the right pedicle [...] made an d a 13ga introducer needle ([employer]) was advanced through the left pedicle and [...] For questions regarding this report, please contact [facility] number below. Elmer Loya MD IMG [...] made and a 13g a introducer needle ([employer]) was advanced through the right pedicle [...] made an d a 13ga introducer needle ([employer]) was advanced through the left pedicle and [...] made and a 13g a introducer needle ([employer]) was advanced through the right pedicle [...] made an d a 13ga introducer needle ([employer]) was advanced through the left pedicle and [...] [facility] Method Time Signature Surgical [id number] ? [facility] The signing pathologist has (i) [...] Spence MD Verified: ??07/22/2019 ?Pathologist Performed at: ??-[facility] Dept. of Pathology, [place], [place] DISCUSSION Deeper levels into the biopsy [...] City/State/[place] [address] Specimen to Pathology (07/20/2019 8:41 AM EDT) Specimen Anatomical Collection Method Collection Time Receive d Time (Source) Location / / Volume Laterality AP Specimen 07/20/2019 8:41 AM 9 8:41 EDT AM EDT Narrative [facility] - 07/20/2019 8:41 AM EDT Specimen requisition ordered. ??Separate Pathology report to follow Elmer Loya MD PATHOLOGY/CYTOLOGY ORDERABLE S Performing Organization Address City/State/[place] [address] documented in this encounter [...] mg documented in this encounter Care Teams Special Systems Technician Relationship Specialty Start Date End Date Bobby Das MD PCP - General 10/02/[address] [place] [address] [place] [phone] documented as of this encounter
--- OUTSIDE RECORDS SUMMARY | 2022-08-02 09:56 | XMS_ITS | Encounter Summary ---
:1940 Author Organization [facility] [place] [address] Care Team Providers Name Role Phone Bobby Das MD Primary Care Provider Encounter Details Date Type Department Care Team Description 09/18/2018 Telephone Dermatology at [facility] Yolanda Fraser RN [address] [place] [address] Social History Tobacco Use Types Packs/Day [...] Who lives with patient (i.e. spouse, children, longterm/fdc)? Spouse Relevant travel history or future plans: [...] MD [facility] GASTROENTEROLOGY DEPT [place], [place] [address] (Wo rk) 09/05/2022 Appointment Cardiology Trinity Reid MD [facility] CARDIOLOGY [place], [place] [address] (Wo rk) 09/05/2022 Office Visit Cardiology Trinity Reid MD [facility] CARDIOLOGY [place], [place] [address] (Wo rk) documented as of this encounter Visit Diagnoses Not on filedocumented in this encounter Care Teams Cigar Making Machine Operator Relationship Specialty Start Date End Date Bobby Das MD PCP - General 10/02/[address] [place] [address] [place] [phone] documented as of this encounter
--- OUTSIDE RECORDS SUMMARY | 2022-08-02 09:56 | XMS_ITS | Encounter Summary ---
:1940 [place] [address] Care Team Providers Name Role Phone Bobby Das MD Primary Care Provider Reason for Visit Reason Comments Wound Check Encounter Details Date Type Department Care Team Description 10/25/2015 Clinical Support Dermatology at Christine Gonzalez MD Follow up [facility] [address] [facility] [place] [address] [place] [address] [phone] (Wo rk) Social History Tobacco Use Types Packs/Day Years Used Date Current Some Day Smoker 1 50 Smokeless Tobacco: Never Used Sex Assigned at Date Recorded Not on file documented as of this encounter Progress Notes Leo Solo MD - 10/25/2015 1:01 PM EST CC: Wound check HPI: Patient is a 75 y.o. male with history of basal cell carcinoma, right buddhist, s/p Mohs, repaired by transposition flap on who presents for wound check. Denies complications. States when he blinks he can feel the scar tissue. ROS: Otherwise well. No other skin complaints. Exam: General: No acute distress Skin: Limited examination of right buddhist shows a well-healed flap with hypertrophy at the edge. Assessment and Plan 1. Basal cell carcinoma, right buddhist, s/p Mohs, repaired by transposition flap Kenalog [...] MD [facility] DR GASTROENTEROLOGY DEPT [place], [place] [address] (Wo rk) 09/05/2022 Appointment Cardiology Trinity Reid MD [facility] CARDIOLOGY [place], [place] [address] (Wo rk) 09/05/2022 Office Visit Cardiology Trinity Reid MD [facility] CARDIOLOGY [place], [place] [address]375 (Wo rk) documented as of this encounter Visit Diagnoses Diagnosis Follow up documented in this encounter Care Teams Diamond Broker Relationship Specialty Start Date End Date Bobby Das MD PCP - General 10/02/[address] [place] [address] [place] [phone] documented as of this encounter
--- OUTSIDE RECORDS SUMMARY | 2022-08-02 09:56 | XMS_ITS | Encounter Summary ---
:1940 Author Organization [facility] [place] [address] Care Team Providers Name Role Phone Bobby Das MD Primary Care Provider Encounter Details Date Type Department Care Team Description 12/13/2016 Telephone Pain Management [place] [address] Social History Tobacco Use Types Packs/Day [...] [facility] DR GASTROENTEROLOGY DEPT [place], [place] 0375 (Wo rk) 09/05/2022 Appointment Cardiology Trinity Reid MD [facility] CARDIOLOGY [place], [place] [address] (Wo rk) 09/05/2022 Office Visit Cardiology Trinity Reid MD [facility] CARDIOLOGY [place], [place] [address] (Wo rk) documented as of this encounter Visit Diagnoses Not on filedocumented in this encounter Care Teams Fountain Waitress/Waiter Relationship Specialty Start Date End Date Bobby Das MD PCP - General 10/02/[address] [place] [address] [place] [phone] documented as of this encounter
--- OUTSIDE RECORDS SUMMARY | 2022-08-02 09:56 | XMS_ITS | Encounter Summary ---
:1940 Author Organization [facility] [place] [address] Care Team Providers Name Role Phone Bobby Das MD Primary Care Provider Encounter Details Date Type Department Care Team Description 12/16/2016 [facility] [place] [address] Social History Tobacco Use Types Packs/Day [...] Reid MD [facility] CARDIOLOGY [place], [place] [address] (Wo rk) 09/05/2022 Office Visit Cardiology Trinity Reid MD [facility] CARDIOLOGY [place], [place] [address] (Wo rk) documented as of this encounter Visit Diagnoses Not on filedocumented in this encounter Care Teams Food Service Representative Relationship Specialty Start Date End Date Bobby Das MD PCP - General 10/02/[address] [place] [address] [place] [phone] documented as of this encounter
--- OUTSIDE RECORDS SUMMARY | 2022-08-02 09:56 | XMS_ITS | Encounter Summary ---
:1940 [place] [address] Care Team Providers Name Role Phone Bobby Das MD Primary Care Provider Encounter Details Date Type Department Care Team Description 07/13/2019 Orders Only Radiology Alan Brink Gastrointestinal [facility] MD Rosa hemorrhage, unspecified [facility] DR hemorrhage type (Primary [id number] RADIOLOGY DEPT Dx) [phone] [place], [place] [address] Social History Tobacco Use Types [...] file Gets together: Not on file Attends voodoo service: Not on file Active member of [...] Collins MD [facility] GASTROENTEROLOGY DEPT [place], [place] [address] (Wo rk) 09/05/2022 Appointment Cardiology Trinity Reid MD [facility] [place]IOLOGY [place], [place] [address] (Wo rk) 09/05/2022 Office Visit Cardiology Trinity Reid MD [facility] [place]IOLOGY [place], [place] [address] (Wo rk) documented as of this encounter Results Prothrombin Time (07/20/2019 8:18 AM EDT) P athologist Signature PT 11.3 9.4 - 12.5 [facility] LABORATORY INR 1.0 [facility] LABORATORY Comment: [...] Organization Address City/State/[place] [address] (ABNORMAL) Hemogram (07/20/2019 8:18 AM EDT) Analysis Performed At Patho logist Time Signature WBC 6.0 4.0 - 9.5 [place] [facility] x10(3)/[facility] LABORATORY RBC 4.50 (L) 4.58 - [place] 5.54 [facility] x10(6)/[facility] LABORATORY Hemoglobin 14.8 13.7 - [facility] 16.5 gm/dL [facility] LABORATORY Hematocrit 43.9 40.5 - [facility] 48.5 % [facility] LABORATORY MCV 97.6 (H) 82.9 - [facility] 93.1 fL [facility] LABORATORY MCH 32.9 (H) 27.5 - [facility] 32.1 pg [facility] LABORATORY MCHC 33.7 32.0 - [facility] 35.7 gm/dL [facility] LABORATORY Platelets 164 145 - 357 [facility] x10(3)/[facility] LABORATORY RDWSD 49.3 (H) 36.0 - [facility] 45.0 [facility] LABORATORY RDWCV 13.6 11.4 - [facility] 13.8 % [facility] LABORATORY MPV 10.0 7.6 - 12.9 [facility] LABORATORY nRBC % Auto 0.0 % [facility] LABORATORY nRBC Abs Auto 0.000 0.000 - [facility] 0.000 [facility] x10(3)/[facility] LABORATORY Specimen Anatomical Collection Method Collection Time Receive d Time (Source) Location / / Volume Laterality Blood specimen 07/20/2019 8:18 AM 019 8:21 (specimen) EDT AM EDT Resulting Agency Comment Spec In Lab Bobby Marshall MD HEMATOLOGY ORDERABLES Performing Organization Address City/State/[place] [address] documented in this encounter Visit Diagnoses Diagnosis Gastrointestinal hemorrhage, unspecified gastrointestinal hemorrhage type - Primary documented in this encounter Care Teams Coal Conveyor Operator Relationship Specialty Start Date End Date Bobby Das MD PCP - General 10/02/[address] [place] [address] [place] [phone] documented as of this encounter
--- OUTSIDE RECORDS SUMMARY | 2022-08-02 09:56 | XMS_ITS | Encounter Summary ---
:1940 Author Organization [facility] [place] [address] Care Team Providers Name Role Phone Bobby Das MD Primary Care Provider Reason for Visit Reason Comments Basal Cell Carcinoma Encounter Details Date Type Department Care Team Description 08/24/2015 Procedure visit Dermatology at [facility] Leo Solo BCC (basal cell Road MD Delores carcinoma of skin) [address] [facility] [address] [facility] [phone] [address] [address] Social History Tobacco Use Types Packs/Day Years [...] when the wound is well cared for. [place] drainage or slight yellow film on your [...] the hospital number and ask for the Psychiatric Aide curtains and draperies salesperson. Wound Care for Sutured Wounds You should [...] the hospital number and ask for the Psychiatric Aide curtains and draperies salesperson. documented in this encounter Progress Notes Leo Solo MD - 08/24/2015 3:25 PM EDT Operative Report Patient name: Koko Zamora : 1940 Date: 08/24/2015 Staff Surgeon: Leo Solo MD, PhD Job Tracer I: Cassy Jacobson, Yolanda Verdin, Etta Burciaga, Gloria Culver MD Oil Tanker Captain: Kourtney Cabrera Pre-operative diagnosis: Basal cell carcinoma Post-operative diagnosis: Basal cell carcinoma Location: Right denominational Procedure: Mohs micrographic surgery Indication for Mohs micrographic surgery: Critical anatomic location Stages: 2 Final defect size: 3.6 x 2.0 cm Stage I The nature and purpose of the procedure, associated risks, possible consequences and complications,and alternative forms of treatment were explained in detail. Informed consent and permission to takephotographs were obtained. The site was confirmed with the patient/authorized plastic products sales representative/referring physician and a pre-operative time-out [...] 08/24/2015 Staff Surgeon: Leo Solo MD, PhD Job Tracer I: Yolanda Rivera, Estefania Welch Clinical Diagnosis: 3.6 x 2.0 cm surgical defect secondary to Mohs microscopically controlled excision of basal cell carcinoma Location: Right denominational Procedure: Transposition flap repair Due to the [...] MD [facility] GASTROENTEROLOGY DEPT [place], [place] [address] ([facility]) 09/05/2022 Appointment Cardiology Trinity Reid MD [facility] CARDIOLOGY [place], [place] [address] ([facility]) 09/05/2022 Office Visit Cardiology Trinity Reid MD [facility] CARDIOLOGY [place], [place] [address] ([facility]) documented as of this encounter Visit Diagnoses Diagnosis BCC (basal cell carcinoma of skin) Basal cell carcinoma of skin, site unspe cified documented in this encounter Care Teams Stockholder Relationship Specialty Start Date End Date Bobby Das MD PCP - General 10/02/[address] [place] [address] [place] [phone] documented as of this encounter
--- OUTSIDE RECORDS SUMMARY | 2022-08-02 09:56 | XMS_ITS | Encounter Summary ---
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 Chano Rebolledo MD [facility], [place] Thoracic Surg [address] [place] [address] [place] [address] [place] [address] Phone: Fax: Referral ID Status Reason Start Date Expiration Date Visits V isits Requested Authorized [id number] Denied Consult, 12/18/2016 12/18/2017 1 0 Test & Treat Encounter Details Date Type Department Care Team Description 12/18/2016 Telephone Pain Management at Chano Freitas MD [facility] [place] [address] PAIN CLINIC [phone] [place], [place] [address] (Wo rk) Social History Tobacco [...] I will make a heme/oncology consultation with [facility] for the patient in the meantime. documented in this encounter Plan of Treatment Upcoming Encounters Date Type Specialty Care Team Description 08/08/2022 Office Visit Gastroenterology Negra Collins MD [facility] GASTROENTEROLOGY DEPT [place], [place] [address] (Wo rk) 09/05/2022 Appointment Cardiology Trinity Reid MD [facility] CARDIOLOGY [place], [place] [address] (Wo rk) 09/05/2022 Office Visit Cardiology Trinity Reid MD [facility] CARDIOLOGY [place], [place] [address] (Wo rk) Scheduled Referrals Name Type Priority Associated Diagnoses Order S chedule Referral to Outpatient Referral Routine Neoplasm of Ordered: Hematology and uncertain behavior 017 Oncology of respiratory organ documented as of this encounter Visit Diagnoses Diagnosis 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
--- OUTSIDE RECORDS SUMMARY | 2022-08-02 09:56 | XMS_ITS | Encounter Summary ---
:1940 Author Organization [facility] Address [facility] [place] [address] Care Team Providers Name Role Phone Bobby Das MD Primary Care Provider Reason for Visit - Closed Specialty Diagnoses / Procedures Referred By Contact Refer red To Contact Procedures Bobby Das MD Film Library- Storage Only MR [address] [place] [phone] Referral ID Status Reason Start Date Expiration Date Visits Requ ested Visits Authorized [id number] Closed 02/23/2021 02/23/2022 1 1 Encounter Details Date Type Department Care Team Description 02/20/2021 Ancillary Procedure Radiology Library at Bobby Almaguer MD [address] [address] [phone] (Rebekah rojas) Social History Tobacco Use Types [...] [facility] DR GASTROENTEROLOGY DEPT [place], [place] [address] (Wo rk) 09/05/2022 Appointment Cardiology Trinity Reid MD [facility] CARDIOLOGY [place], [place] [address] (Wo rk) 09/05/2022 Office Visit Cardiology Trinity Reid MD [facility] CARDIOLOGY [place], [place] [address] (Wo rk) documented as [...] Organization Address City/State/ZIP Code Phon e Number [place], [place] documented in this encounter Visit Diagnoses Not on filedocumented in this encounter Care Teams Machine Stripper Cutter Relationship Specialty Start Date End Date Bobby Das MD PCP - General 10/02/[address] [place] [address] [place] [phone] documented as of this encounter
--- OUTSIDE RECORDS SUMMARY | 2022-08-02 09:56 | XMS_ITS | Encounter Summary ---
:1940 Author Organization [facility] [place] [address] Care Team Providers Name Role Phone Bobby Das MD Primary Care Provider Reason for Visit Reason Comments Suture / Staple Removal Encounter Details Date Type Department Care Team Description 08/31/2015 Clinical Support Dermatology at [place] Visit for suture Heat Nicol Estrella MD removal [address] [facility] [address] [facility] [phone] RD-DERMATOLOGY [place] [phone] Social History Tobacco Use Types Packs/Day Years Used Date Current Some Day Smoker 1 50 Smokeless Tobacco: Never Used Sex Assigned at Date Recorded Not on file documented as of this encounter Progress Notes Jeni Franco LPN - 08/31/2015 2:47 PM EDT HPI: Patient is a 74 y.o. male with history of basal cell carcinoma, right adventism, s/p Mohs repairedby transposition flap repair who is presenting for suture removal. Denies complications. Exam: General: No acute distress Skin: Limited examination of right adventism shows a well-healed flap. There is no erythema, dehiscence, ecchymosis, or drainage. Assessment and Plan 1. Basal cell carcinoma, right adventism, s/p Mohs repaired by transposition flap repair [...] MD [facility] GASTROENTEROLOGY DEPT [place], [place] [address] (Wo rk) 09/05/2022 Appointment Cardiology Trinity Reid MD [facility] CARDIOLOGY [place], [place] [address] (Wo rk) 09/05/2022 Office Visit Cardiology Trinity Reid MD [facility] CARDIOLOGY [place], [place] [address]375 (Wo rk) documented as of this encounter Visit Diagnoses Diagnosis Visit for suture removal Encounter for removal of sutures documented in this encounter Care Teams Composer Teaching Artist Relationship Specialty Start Date End Date Bobby Das MD PCP - General 10/02/[address] [place] [address] [place] [phone] documented as of this encounter
--- OUTSIDE RECORDS SUMMARY | 2022-08-02 09:56 | XMS_ITS | Encounter Summary ---
:1940 Author Organization [facility] [place] [address] Care Team Providers Name Role Phone Bobby Das MD Primary Care Provider Reason for Visit Reason Comments Basal Cell Carcinoma Consultation (Routine) - Closed Specialty Diagnoses / Procedures Referred By Contact Refer red To Contact Dermatology Diagnoses REQUESTING MOHS PROCEDURE RIGHT EYEBROW FOR LESION REMOVED BUT ADDITIONAL TISSUE REMAINS Bobby Das MD Vidal, Nahid Y, MD [address] [place] [address] [place] [address] [place] [address] Fax: Referral ID Status Reason Start Date Expiration Date Visits V isits Requested Authorized [id number] Closed Consult, 06/24/2018 06/24/2019 1 1 Test [facility] Encounter Details Date Type Department Care Team Description 09/23/2018 Procedure visit Dermatology at Alvaro Romano, Basal cell carcinoma Nicol CARCAMO (BCC) of eyebrow [address] [facility] [address] [place] [address] [phone] Social History Tobacco Use Types Packs/Day Years [...] Llanos MD. Your wound(s) was repaired by hbkj-um-stiz stitches called a primary repair. You do [...] until your sutures are removed. 5. Some agricultural purchasing agent may need to be delayed or delegated [...] as is recommended by your director of sports medicine, for new skin cancers. This is once [...] it. If after hours, please call the lidding machine operator or [phone] and ask for the director of sports medicine on-call. If you have any non-urgent questions or concerns, please feel free to call my office or contact me through our patient portal, [employer], at [email or web address] How to contact us during business hours Dermatology at [facility] [address]: Mohs scheduling or Mohs follow-up appointments: [phone] documented in this encounter Progress Notes Alvaro [...] Who lives with patient (i.e. spouse, children, custodial/mcc)? Spouse Relevant travel history or future plans: [...] with his or her referring director of sports medicine or other skin provider. Summary of Procedure(s): [...] Date: 09/23/2018 Staff Surgeon: Alvaro Llanos MD Nursing/Data Processing Supervisor(s): Assistants: Cassy Jacobson LPN, Jolene Pretty RN, Yolanda Fraser LPN, Savanah Licea CMA Low Emission Automobile Designer (s): Cristina Cisneros Amanda Isenor Pre-operative diagnosis: [...] site was confirmed with the patient/authorized sales promotion representative/referring physician and/or a photograph form time [...] Right eyebrow Indication: repair of wound for baptism of function/anatomy Final Defect size: 1.5 x [...] MD [facility] [place]OLOG[place] [address] (Wo rk) 09/05/2022 Appointment Cardiology Trinity Reid MD [facility] CARDIOLOGY [place], [place] [address] (Wo rk) 09/05/2022 Office Visit Cardiology Trinity Reid MD [facility] CARDIOLOGY [place], [place] 0[address] (Wo rk) documented as of this encounter Visit Diagnoses Diagnosis Basal cell carcinoma (BCC) of eyebrow documented in this encounter Care Teams Stringed Instrument Tuner Relationship Specialty Start Date End Date Bobby Das MD PCP - General 10/02/[address] [place] [address] [place] [address] documented as of this encounter
--- OUTSIDE RECORDS SUMMARY | 2022-08-02 09:56 | XMS_ITS | Encounter Summary ---
:1940 Author Organization [facility] [place] [address] Care Team Providers Name Role Phone Bobby Das MD Primary Care Provider Reason for Referral Diagnostic Test (Routine) - Closed Specialty Diagnoses / Procedures Referred By Contact Refer red To Contact Radiology Diagnoses Compression fracture of T9 vertebra, initial encounter Alphonso Esquivel, DO [facility] Interventionl Rad Procedures IR Vertebroplasty Thoracic Single Level [facility] [place] [address] [place] [address] Referral ID Status Reason Start Date Expiration Date Visits V isits Requested Authorized [id number] Closed Specialty 10/13/2020 04/13/2022 1 1 Service Requested Encounter Details Date Type Department Care Team Description 10/13/2020 Orders Only Radiology at [facility] Alphonso Esquivel, Compression fracture [facility] DO of T9 vertebra, Drive [facility] [place] [address] DIAGNOSTIC RADIOLOGY [place], [place] [address] Social History Tobacco Use Types [...] [facility] DR GASTROENTEROLOGY DEPT [place], [place] [address] (Wo rk) 09/05/2022 Appointment Cardiology Trinity Reid MD [facility] CARDIOLOGY [place], [place] [address] (Wo rk) 09/05/2022 Office Visit Cardiology Trinity Reid MD [facility] CARDIOLOGY [place], [place] [address] (Wo rk) documented as of [...] made and a 13g a introducer needle ([employer]) was advanced through the right pedicle and t o the ??T9 vertebral body during an intermittent fluoroscopic guidance. The [employer] biopsy cannula was advanced through the introducer [...] was made and a 13ga introducer needle ([employer]) was advanced through the left pedicle and [...] made and a 13g a introducer needle ([employer]) was advanced through the right pedicle and t o the T9 vertebral body during an intermittent fluoroscopic guidance. The [employer] biopsy cannula was advanced through the introducer [...] was made and a 13ga introducer needle ([employer]) was advanced through the left pedicle and [...] athologist Signature PT 10.8 9.4 - 12.5 [facility] LABORATORY INR 1.0 [facility] [...] Organization Address City/State/[place] [address] Platelet count (10/25/2020 6:35 AM EST) athologist Signature Platelets 192 145 - 357 [facility] x10(3)/[facility] LABORATORY Plat Immature 2.6 0.0 - 7.4 [facility] % % [facility] LABORATORY Comment: Limitation of the Immature Platelet Frac tion (IPF)-May be less reliable when the platelet count is less than 53d899/u L due to statistical imprecision. The IPF [...] in a decreased state of production. References: [employer] The Clinical Value of the Immature Platelet Fraction (IPF) in Cell Recovery Document Number 10-1143 04/2011 [employer] The Role of the Imm ature [...] Organization Address City/State/[place] [address] documented in this encounter Visit Diagnoses Diagnosis Compression fracture of T9 vertebra, ini tial encounter Compression fracture of T9 vertebra, ini tial encounter documented in this encounter Care Teams Wool Supplier Relationship Specialty Start Date End Date Bobby Das MD PCP - General 10/02/[address] [place] [address] [place] [phone] documented as of this encounter
--- OUTSIDE RECORDS SUMMARY | 2022-08-02 09:57 | XMS_ITS | Encounter Summary ---
:1940 Author Organization [facility] Address [address] [place] [address] Care Team Providers Name Role Phone Bobby Das MD Primary Care Provider Reason for Visit Reason Comments Shortness of Breath Encounter Details Date Type Department Care Team Description 12/24/2011 Office Visit [facility] Giang SOB (shortness of [address] Mendoza MD breath) (Primary Dx) [facility] [address] CARDIOLOGY DEPT. [place], [place] [address] Social History Tobacco Use Types Packs/Day Years [...] Collins MD [facility] GASTROENTEROLOGY DEPT [place], [place] [address] (Wo rk) 09/05/2022 Appointment Cardiology Trinity Reid MD [facility] CARDIOLOGY [place], [place] [address] (Wo rk) 09/05/2022 Office Visit Cardiology Trinity Reid MD [facility] CARDIOLOGY [place], [place] [address] (Wo rk) documented as of this encounter Visit Diagnoses Diagnosis SOB (shortness of breath) - Primary Shortness of breath documented in this encounter Care Teams Sailboat Captain Relationship Specialty Start Date End Date Bobby Das MD PCP - General 10/02/[address] [place] [address] [place] [phone] documented as of this encounter
--- OUTSIDE RECORDS SUMMARY | 2022-08-02 09:57 | XMS_ITS | Encounter Summary ---
:1940 Author Organization [facility] [place] [address] Care Team Providers Name Role Phone Bobby Das MD Primary Care Provider Reason for Visit Reason Comments Skin Check Encounter Details Date Type Department Care Team Description 03/29/2014 Office Visit Dermatology at [facility], Kyle c ell carcinoma (Primary Dx); Nba CARCAMO Verruca vulgaris; [address] [place] (actinic keratosis) [facility] B DERMATOLOGY [place], [place] [id number] [phone] Social History Tobacco Use Types Packs/Day Years [...] sun over the years. He lives in [place], [place]. Physical examination reveals a pleasant, 73-year-old gentleman who has a pearly, 1-cm papule on the right lateral canthus, site A; and a pearly papule about 8 mm in diameter, site C, on the right jain at the scalp line. At the central [...] BCCAs, right lateral canthus and right lateral jain, sites A and C, respectively. a. After [...] MD [facility] GASTROENTEROLOGY DEPT [place], [place] [address] (Wo rk) 09/05/2022 Appointment Cardiology Trinity Reid MD [facility] CARDIOLOGY [place], [place] [address] (Wo rk) 09/05/2022 Office Visit Cardiology Trinity Reid MD [facility] CARDIOLOGY [place], [place] [address] (Wo rk) documented as of this encounter Visit Diagnoses Diagnosis Basal cell carcinoma - Primary Basal cell carcinoma of skin, site unspe cified Verruca vulgaris Viral warts, unspecified [place] (actinic keratosis) Actinic keratosis documented in this encounter Care Teams Oracle Ascp Consultant Relationship Specialty Start Date End Date Bobby Das MD PCP - General 10/02/[address] [place] [address] [place] [address] documented as of this encounter
--- OUTSIDE RECORDS SUMMARY | 2022-08-02 09:57 | XMS_ITS | Encounter Summary ---
:1940 Author Organization [facility] [place] [address] Care Team Providers Name Role Phone Bobby Das MD Primary Care Provider Reason for Visit Reason Comments Basal Cell Carcinoma Encounter Details Date Type Department Care Team Description 08/08/2015 [facility] (basal cell Road MD carcinoma of skin) [address] [place] [address] [facility] [place] [place] [address] Social History Tobacco Use Types [...] Our facility does not offer a guest [employer] network at this time. We also recommend [...] specified we require that you have a electric train driver, as surgery can be stressful and tiring. If you are being transported from a residential or other similar facility, we request that someone stay with you during this appointment. We are located in the [facility] [place], [place]. Please refer to the [facility] website for detailed driving directions ([email or web address] When you arrive, please park in the upper parking lot. When you enter the building, go to the third floor, the hydro excavation operator area is located on the left (follow [...] If this fails, contact our office at [phone] (after 5PM please call [phone] and ask for the Nuclear Criticality Safety Engineer air pollution engineer). Avoid bending over, heavy lifting (no greater [...] are taking. Our office phone number is [phone]. documented in this encounter Progress Notes Leo Solo MD - 08/08/2015 1:50 PM EDT MOHS SURGICAL CONSULT Chief Complaint: Basal cell carcinoma History of Present Illness: Referring Physician: Dr. Zheng, [facility] [place] [facility] (07/03/15) Tumor type: BCC Location of Skin Cancer: Right mormonism Duration of Presence: 1 year Previous Treatment: [...] acute distress. Skin: Limited examination of right mormonism reveals a 5 mm erythematous papule. Assessment and Plan 1. BCC, right mormonism Reviewed treament options including wide local excision, [...] MD [facility] [address] GASTROENTEROLOGY DEPT [place], [place] [address] (Wo rk) 09/05/2022 Appointment Cardiology Trinity Reid MD [facility] CARDIOLOGY [place], [place] [address] (Wo rk) 09/05/2022 Office Visit Cardiology Trinity Reid MD [facility] CARDIOLOGY [place], [place] [address] (Wo rk) documented as of this encounter Visit Diagnoses Diagnosis BCC (basal cell carcinoma of skin) Basal cell carcinoma of skin, site unspe cified documented in this encounter Care Teams Senior Project Controls Specialist Relationship Specialty Start Date End Date Bobby Das MD PCP - General 10/02/[address] [place] [address] [place] [phone] documented as of this encounter
--- OUTSIDE RECORDS SUMMARY | 2022-08-02 09:57 | XMS_ITS | Encounter Summary ---
:1940 Author Organization [place] [address] Care Team Providers Name Role Phone Bobby Das MD Primary Care Provider Encounter Details Date Type Department Care Team Description 07/25/2015 Hospital Encounter Laboratory Leo Solo, [facility] [place] [address]-DERMATOLOGY [place], [place] [address] (Wo rk) Social History Tobacco [...] MD [facility] GASTROENTEROLOGY DEPT [place], [place] [address] (Wo rk) 09/05/2022 Appointment Cardiology Trinity Reid MD [facility] CARDIOLOGY [place], [place] [address] (Wo rk) 09/05/2022 Office Visit Cardiology Trinity Reid MD [facility] CARDIOLOGY [place] [address] (Wo rk) documented as of this encounter Procedures Procedure Name Priority Date/Time Associated Diagnosis Comme nts SURGICAL PATHOLOGY Routine 07/25/2015 9:51 AM Res ults for this REPORT EDT procedure are i n the results section. documented in this encounter Results Surgical Pathology Report (07/25/2015 9:51 AM EDT) Component Value Ref Test Analysis Performed At [facility] Method Time Signature Surgical The signing pathologist has (i) examined the relevant preparation(s) for the [facility] Pathology specimen(s) and (ii) rendered or confirmed the diagnosis(e s). [facility] Report Accession Number: [id number] . ?Surgic al Pathology DIAGNOSIS CONSULTATION CASE Outside slides labeled [id number], collection date 07/03/2015 . Skin, right synagogue, excision: ?- ??BASAL CELL CARCINOMA, INFILTRATIVE TYPE [...] CONSULTATION CASE A - 3 slides labeled [id number], collection date 07/03/2015. [id number] Report to: [facility] Surgical Pathology Department [facility], [address], 2nd Floor [address], [place] ??[address] SPECIMEN PROCESSING [facility] ([facility]) pathology slide(s) are reviewed. ??Refer to Diagnosis and Specimen Submitted for specific case infor arpan. For the full text of the [facility] ([facility]) report(s) please refer to Non-DH Documentati on Pathology in the electronic health record (eDH). Specimen (Source) Anatomical Collection Method Collection Time Re ceived Time Location / / Volume Laterality 07/25/2015 9:51 AM EDT Leo Solo MD PATHOLOGY/CYTOLOGY ORDERABLE S Performing Organization Address City/State/[place] [address] [facility] documented in this encounter Visit Diagnoses Not on filedocumented in this encounter Care Teams Motorcycle Mechanic Relationship Specialty Start Date End Date Bobby Das MD PCP - General 10/02/[address] [place] [address] [place] [phone] documented as of this encounter
--- OUTSIDE RECORDS SUMMARY | 2022-08-02 09:57 | XMS_ITS | Encounter Summary ---
:1940 Author Organization [facility] Address [facility] [address] [place] [address] Care Team Providers Name Role Phone Bobby Das MD Primary Care Provider Reason for Visit Reason Onset Date Comments Other 07/19/2011 Encounter Details Date Type Department Care Team Description 07/19/2011 Telephone Cardiology at [facility] Chet [place] [address] CARDIOLOGY DEPT. [phone] [place], [place] [address] (Wo rk) Social History Tobacco [...] MD [facility] GASTROENTEROLOGY DEPT [place], [place] [address] (Wo rk) 09/05/2022 Appointment Cardiology Trinity Reid MD [facility] CARDIOLOGY [place], [place] [address] (Wo rk) 09/05/2022 Office Visit Cardiology Trinity Reid MD [facility] CARDIOLOGY [place], [place] [address] (Wo rk) documented as of this encounter Visit Diagnoses Not on filedocumented in this encounter Care Teams Paster Operator Relationship Specialty Start Date End Date Bobby Das MD PCP - General 10/02/[address] [place] [address] [place] [phone] documented as of this encounter
--- OUTSIDE RECORDS SUMMARY | 2022-08-02 09:57 | XMS_ITS | Encounter Summary ---
:1940 Author Organization [facility] Address [facility] [address] [place] [address] Care Team Providers Name Role Phone Bobby Das MD Primary Care Provider Reason for Visit Reason Comments Shortness of Breath Encounter Details Date Type Department Care Team Description 06/28/2011 Office Visit Cardiology at [facility] Chet Nicole SOB (shortness of breath) (P rimary Dx); [facility] GIB (gastrointestinal bleeding); Drive [facility] MVP (mitral valve prolapse) [place] [address] CARDIOLOGY DEPT. [phone] [place], [place] [address] Social History Tobacco Use Types [...] Giordano MD - 06/28/2011 4:15 PM EDT [facility] Cholesterol and Triglycerides Tests: About These [...] 60 mg/dl is considered ideal. ?? Total dfgoyywppme-kp-UYF ratio: A ratio of 5:1 or lower is recommended. ?? LDL cholesterol: Between 100-129 mg/dL is recommended. Lower than 100 mg/dL is considered ideal. ?? VLDL cholesterol: 30 mg/dL or less is recommended. ?? Triglycerides: Lower than 150 mg/dL is recommended. Where can you learn more? Visit our health information library at [email or web address]. You can also view health information on My [employer], your personal patient account. Log in or sign up today. Enter V788 in the search box to learn more about Cholesterol and Triglycerides Tests: About These Tests. ?? [id number] [employer]. Care instructions adapted under license by [facility]. This care instruction is for use with your licensed healthcare professional. If you have questionsabout a medical condition or this instruction, always ask your healthcare professional. [employer] disclaims any warranty or liability for your [...] valve prolapse) s/p repair Surgery done at [facility] in 2000 ??? Hypertriglyceridemia ??? Adhesive capsulitis of L shoulder ??? Alcohol use Medications: [place]-3 Fatty Acids-Vitamin E (FISH OIL) 1,000 mg [...] MD [facility] GASTROENTEROLOGY DEPT [place], [place] [address] (Wo rk) 09/05/2022 Appointment Cardiology Trinity Reid MD [facility] CARDIOLOGY [place], [place] [address] (Wo rk) 09/05/2022 Office Visit Cardiology Trinity Reid MD [facility] CARDIOLOGY [place], [place] [address] (Wo rk) documented as of this encounter Procedures Procedure Name Priority Date/Time Associated Diagnosis Comme nts EKG 12-LEAD Routine 06/28/2011 2:59 PM SOB (shortness of Resu lts for this EDT breath) procedure are i n the results section . documented in this encounter Results EKG 12 Lead (06/28/2011 2:59 PM EDT) [facility] gist Method Time Signature Ventricular rate 70 BPM MUSE SYSTEM Atrial Rate 70 BPM MUSE SYSTEM P-R Interval 182 ms MUSE SYSTEM QRS Duration 106 ms MUSE SYSTEM Q-T Interval 406 ms MUSE SYSTEM QTC Calculated 438 ms MUSE SYSTEM (Bezet) Calculated P Upton 60 degrees MUSE SYSTEM Calculated R Upton -51 degrees MUSE SYSTEM Calculated T Upton 32 degrees MUSE SYSTEM INTERPRETATION Normal sinus [...] disorders documented in this encounter Care Teams Patient Assessment Coordinator Relationship Specialty Start Date End Date Bobby Das MD PCP - General 10/02/[address] [place] [address] [place] [phone] documented as of this encounter
--- OUTSIDE RECORDS SUMMARY | 2022-08-02 09:57 | XMS_ITS | Encounter Summary ---
:1940 Author Organization [facility] [place] [address] Care Team Providers Name Role Phone Bobby Das MD Primary Care Provider Reason for Visit Reason Onset Date Comments Pre Procedure Call 08/01/2015 Encounter Details Date Type Department Care Team Description 08/01/2015 Telephone Dermatology at [facility] Cassy Jacobson, Pre Procedure Call [address] [place] [address] Social History Tobacco Use Types Packs/Day [...] [facility] DR GASTROENTEROLOGY DEPT [place], [place] [address] (Wo rk) 09/05/2022 Appointment Cardiology Trinity Reid MD [facility] CARDIOLOGY [place], [place] [address] (Wo rk) 09/05/2022 Office Visit Cardiology Trinity Reid MD [facility] CARDIOLOGY [place], [place] [address] (Wo rk) documented as of this encounter Visit Diagnoses Not on filedocumented in this encounter Care Teams Accounts Payable Analyst Relationship Specialty Start Date End Date Bobby Das MD PCP - General 10/02/[address] [place] [address] [place] [phone] documented as of this encounter
--- OUTSIDE RECORDS SUMMARY | 2022-08-02 09:57 | XMS_ITS | Encounter Summary ---
:1940 Author Organization [facility] [place] [address] Care Team Providers Name Role Phone Bobby Das MD Primary Care Provider Reason for Visit Reason Comments Shortness of Breath Encounter Details Date Type Department Care Team Description 09/17/2011 Office Visit [facility] Hosp Torrey Giang SOB (shortness of 189 Destin Bradley Mendoza MD breath) (Primary Dx) [facility] [place] [address] CARDIOLOGY DEPT. [place] [id number] Social History Tobacco Use Types Packs/Day Years [...] [facility] GASTROENTEROLOGY DEPT [place], [place] [address] (Wo rk) 09/05/2022 Appointment Cardiology Trinity Reid MD [facility] CARDIOLOGY [place], [place] [address] (Wo rk) 09/05/2022 Office Visit Cardiology Trinity Reid MD [facility] CARDIOLOGY [place], [place] [address] (Wo rk) documented as of [...] breath documented in this encounter Care Teams Utilities Service Investigator Relationship Specialty Start Date End Date Bobby Das MD PCP - General 10/02/[address] [place] [address] [place] [phone] documented as of this encounter
--- OUTSIDE RECORDS SUMMARY | 2022-08-02 09:57 | XMS_ITS | Encounter Summary ---
:1940 Author Organization [facility] [place] [address] Care Team Providers Name Role Phone Bobby Das MD Primary Care Provider Encounter Details Date Type Department Care Team Description 07/26/2015 External Results Medical Records Provider, [facility] [place] [address] Social History Tobacco Use Types Packs/Day Years Used Date Current Some Day Smoker 1 50 Smokeless Tobacco: Never Used Sex Assigned at Date Recorded Not on file documented as of this encounter Plan of Treatment Upcoming Encounters Date Type Specialty Care Team Description 08/08/2022 Office Visit Gastroenterology Negra Collins MD [facility] GASTROENTEROLOGY DEPT [place], [place] [address] (Wo rk) 09/05/2022 Appointment Cardiology Trinity Reid MD [facility] CARDIOLOGY [place], [place] [address] (Wo rk) 09/05/2022 Office Visit Cardiology Trinity Reid MD [facility] CARDIOLOGY [place], [place] [address] (Wo rk) documented as [...] on filedocumented in this encounter Care Teams Imaging Services Director Relationship Specialty Start Date End Date Bobby Das MD PCP - General 10/02/[address] [place] [address] [place] [phone] documented as of this encounter
--- OUTSIDE RECORDS SUMMARY | 2022-08-02 09:57 | XMS_ITS | Encounter Summary ---
:1940 Author Organization [facility] [place] [address] Care Team Providers Name Role Phone Bobby Das MD Primary Care Provider Reason for Visit Reason Comments Follow-up Encounter Details Date Type Department Care Team Description 05/31/2014 [facility] of basal cell Nba CARCAMO carcinoma (Primary [address] Dx) [facility] B DERMATOLOGY [place], [place] [address] [phone] Social History Tobacco Use Types Packs/Day Years Used Date Current Some Day Smoker 1 50 Smokeless Tobacco: Never Used Sex Assigned at Date Recorded Not on file documented as of this encounter Patient Instructions Patient InstructionsSupriya Louis LPN - 05/31/2014 1:34 PM EDT Images from the original note were not included. [facility] Actinic Keratosis: After Your Visit Your Care [...] more? Visit our health information library at [email or web address] You can also view health information on First Meta, your personal patient account. Log in or sign up today. Enter L364 in the search box to learn more about Actinic Keratosis: After Your Visit. ?? [id number] [employer]. Care instructions adapted under license by [facility]. This care instruction is for use with your licensed healthcare professional. If you have questionsabout a medical condition or this instruction, always ask your healthcare professional. [employer] disclaims any warranty or liability for your use of this information. Content Version: 9.9.729624; Last Revised: December 22, 2012 documented in this encounter Progress Notes Hammer, Cy J, MD - 05/31/2014 2:08 PM EDT Problem: Follow up for repeat skin checkup. Shadi follows up after last being seen in March. 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 I also treated a verruca vulgaris on [...] MD [facility] GASTROENTEROLOGY DEPT [address] [place], [place] [address] (Wo rk) 09/05/2022 Appointment Cardiology Trinity Reid MD [facility] [address] [place], [place] [address] (Wo rk) 09/05/2022 Office Visit Cardiology Trinity Reid MD [facility] [address] [place], [place] [address] (Rebekah rojas) documented as of this encounter Visit Diagnoses Diagnosis History of basal cell carcinoma - Primar y Personal history of other malignant neop lasm of skin documented in this encounter Care Teams Network Announcer Relationship Specialty Start Date End Date Bobby Das MD PCP - General 10/02/[address] [place] [address] [place] [phone] documented as of this encounter
--- OUTSIDE RECORDS SUMMARY | 2022-08-02 10:01 | XMS_ITS | Clinical Summary ---
:1940 Author Organization [facility] Address [address] [place] [address] Care Team Providers Name Role Phone Bobby [...] Problem Noted Date Malignant neoplasm of prostate ([facility]) 11/19/2017 Cancer Staging: Clinical stage from 11/19: Stage IIB (cT2a, cN0, cM0, PSA: 12.8, Grade Group: 2) - Signed by Delores Gutierrez III, MD on 11/19/2017 Medical History Medical History Date Comments Cancer ([facility]) (HCC) Hyperlipidemia Family History Medical History Relation [...] T ype Group Dates MEDICARE MEDICARE A/B [id number] 2007-Pre [address] edicare GL sent [address] [address] [facility] [id number] 2021-Pre [address] Commercial GL [facility] NATIONAL sent [place], [place]URANCE [phone] COMPANY Koko Zamora Personal/Family Self 1940 [address] (Home) [place] [address] Koko Zamora Personal/Family Self 1940 [address] [address] Care Teams Multimedia Artist Relationship Specialty Start Date End Date Bobby Das MD PCP - General 07/06/[address] [place] [address],[address] [place] [phone]
--- OUTSIDE RECORDS SUMMARY | 2022-08-02 10:01 | XMS_ITS | Encounter Summary ---
:1940 Author Organization [facility] Address [address] [place] [address] Care Team Providers Name Role Phone Bobby Das MD Primary Care Provider Encounter Details Date Type Department Care Team Description 10/03/2021 Lab Requisition [facility] Bobby Das Enc ounter for other Pathology & MD general examination Laboratory Medicine [address] [place] [address],[address] [facility] [address] [place], [place] [id number] [place] [phone] Social History Tobacco Use Types Packs/Day Years [...] SERVICES Toni Giordano 10/05/2021 8:15 Performing Lab [facility] LAB [facility] SERVICES Scanned Images [facility] SERVICES Specimen Tissue - Skin (tissue) specimen (specime n) Performing Organization Address City/State/ZIP Code Phon e Number [facility] [address] [place] [address] SERVICES documented in this encounter Visit Diagnoses Diagnosis Encounter for other general examination documented in this encounter Care Teams Director Religious Education Relationship Specialty Start Date End Date Bobby Das MD PCP - General 07/06/[address] [place] [address] ,[address] [place] [address] documented as of this encounter
--- OUTSIDE RECORDS SUMMARY | 2022-08-02 10:02 | XMS_ITS | Encounter Summary ---
:1940 Author Organization [facility] Address [address] [place] [address] Care Team Providers Name Role Phone Bobby Das MD Primary Care Provider Reason for Visit Reason Onset Date Comments Follow-up 02/24/2018 Appointment Related 02/24/2018 scheduled appt w/ nu rsing for Lupron injection on 04/06 Encounter Details Date Type Department Care Team Description 02/24/2018 Telephone [facility] Ama Corea, Follow -up; Appointment Urology - James campo RN Related (scheduled appt [address] [facility] w/ [place] [address] injection on 04/06) [phone] Social History Tobacco Use Types Packs/Day Years Used Date Current Every Day Smoker Smokeless Tobacco: Never Used Sex Assigned at Date Recorded Not on file documented as of this encounter Miscellaneous Notes Telephone Encounter - Mague Crisostomo - 02/25/2018 1044 EDT scheduled appt w/ nursing for Lupron injection on 04/06; pt prefers it at the [place] office Telephone Encounter - Ama Corea, RN [...] filedocumented in this encounter Care Teams Lift Truck Mechanic Relationship Specialty Start Date End Date Bobby Das MD PCP - General 07/06/[address] [place] [address],[address] [place] [address] documented as of this encounter
--- OUTSIDE RECORDS SUMMARY | 2022-08-02 10:02 | XMS_ITS | Encounter Summary ---
:1940 Author Organization [facility] Address [address] [place] [address] Care Team Providers Name Role Phone Bobby Das MD Primary Care Provider Encounter Details Date Type Department Care Team Description 08/03/2020 Lab Requisition [facility] Outr Resulting Lab, Pathology & Laboratory Provider [facility] [address] [place], [place] [phone] Social History Tobacco Use Types Packs/Day Years [...] (08/03/2020 12:22 EDT) COVID-19 rt-PCR NEGATIVE Negative [facility] Result Comment: LABORATORY 2019-novel Coronavirus [...] Address City/State/ZIP Code Phon e Number [facility] [place] COVID-19 TESTING (08/03/2020 12:22 EDT) Pathologist [facility] COVID-19 rt-PCR NEGATIVE Negative [facility] Result [...] Emergency Use Authorization. Performing Lab [facility] LABORATORY SERVICES Specimen Swab Performing Organization Address City/State/ZIP Code Phon e Number [facility] [address] [place] [address] SERVICES [facility] [place], [place] documented in this encounter Visit Diagnoses Not on filedocumented in this encounter Care Teams Ink Grinder Relationship Specialty Start Date End Date Bobby Das MD PCP - General 07/06/[address] [place] [address] ,[address] [place] [address] documented as of this encounter
--- OUTSIDE RECORDS SUMMARY | 2022-08-02 10:02 | XMS_ITS | Encounter Summary ---
:1940 Author Organization [facility] Address [address] [place] [address] Care Team Providers Name Role Phone Bobby Das MD Primary Care Provider Reason for Visit Reason Comments Cancer Encounter Details Date Type Department Care Team Description 01/08/2018 Radiation Therapy [facility] Isela Law Ma lignant neoplasm of Visit Radiation Oncology - RN prostat e ([facility] [place] ([facility]) (Primary [address] Dx) [place] [address] Social History Tobacco Use Types [...] and get free services/meds from afar. Referrals mechanical repair worker: Yes (Shadi will meet with Santhosh Cosby MSW next week to review the DT and supportive services. ) Services: Kylee Gladstone: No Other: Subjective Note: General: Koko and his Ursula are here for the treatment teaching session post Fiducials being placed. Shadi and his run a [employer] in [place]. They are concerned that he might be [...] prostate documented in this encounter Care Teams Longwall Headgate Operator Relationship Specialty Start Date End Date Bobby Das MD PCP - General 07/06/[address] [place] [address] ,[address] [place] [address] documented as of this encounter
--- OUTSIDE RECORDS SUMMARY | 2022-08-02 10:02 | XMS_ITS | Encounter Summary ---
:1940 Author Organization [facility] Address [address] [place] [address] Care Team Providers Name Role Phone Bobby Das MD Primary Care Provider Reason for Visit Reason Comments Prostate Cancer Encounter Details Date Type Department Care Team Description 02/17/2018 Radiation Therapy [facility] Aries Gutierrez alignant neoplasm Visit Radiation Oncology Felix EAST MD of [facility] [address] ([facility]) (Primary [address] [facility] Dx) [facility], [address] [place] [address] [address] [place] [address] Social History Tobacco Use Types [...] encounter diagnosis was Malignant neoplasm of prostate ([facility]). Assessment: Assessment Completed By: Felix Gutierrez MD (02/17/18 6376) Radiation Therapy: Cumulative RT Dose 3600 cGy [...] Changes: None Sj Gutierrez MD Radiation Oncology [phone] (office) [phone] (pager) documented in this encounter Plan of Treatment Not on filedocumented as of this encounter Visit Diagnoses Diagnosis Malignant neoplasm of prostate (HCC-CMS) (HCC) - Primary Malignant neoplasm of prostate documented in this encounter Care Teams Iron Worker Apprentice Relationship Specialty Start Date End Date Bobby Dsa MD PCP - General 07/06/[address] [place] [address] ,[address] [place] [address] documented as of this encounter
--- OUTSIDE RECORDS SUMMARY | 2022-08-02 10:02 | XMS_ITS | Encounter Summary ---
:1940 Author Organization [facility] Address [address] [place] [address] Care Team Providers Name Role Phone Bobby Das MD Primary Care Provider Encounter Details Date Type Department Care Team Description 07/16/2019 Hospital Encounter [facility] - Dayne Gutierrez [facility] III, MD [id number] [place] [address] [facility] [address] [place] [address] (Wo rk) Social History Tobacco [...] on filedocumented in this encounter Care Teams French Binder Relationship Specialty Start Date End Date Bobby Das MD PCP - General 07/06/[address] [place] [address] ,[address] [place] [address] documented as of this encounter
--- OUTSIDE RECORDS SUMMARY | 2022-08-02 10:02 | XMS_ITS | Encounter Summary ---
:1940 Author Organization [facility] Address [address] [place] [address] Care Team Providers Name Role Phone Bobby Das MD Primary Care Provider Reason for Visit Reason Comments Cancer Encounter Details Date Type Department Care Team Description 02/06/2018 Radiation Therapy [facility] Lynn Vargas RN Malignant neoplasm Visit Radiation Oncology [address] [facility] ([facility] ([facility]) [address] [place] [address] (Primary Dx) [place] [phone] Social History Tobacco Use Types Packs/Day Years [...] encounter diagnosis was Malignant neoplasm of prostate ([facility]). Assessment: Assessment Completed By: Lynn Vargas RN [...] Visit Diagnoses Diagnosis Malignant neoplasm of prostate ([facility]) (HCC) - Primary Malignant neoplasm of prostate documented in this encounter Care Teams Academic Guidance Specialist Relationship Specialty Start Date End Date Bobby Das MD PCP - General 07/06/[address] [place] [address],[address] [place] [address] documented as of this encounter
--- OUTSIDE RECORDS SUMMARY | 2022-08-02 10:02 | XMS_ITS | Encounter Summary ---
:[address] [facility] Address [address] [place] [address] Care Team Providers Name Role Phone Bobby Das MD Primary Care Provider Reason for Visit Reason Comments Cancer Encounter Details Date Type Department Care Team Description 02/27/2018 Radiation Therapy [facility] Letty Gaitan RN Malignant neoplasm Visit Radiation Oncology [address] [place] [address] ([facility]) (Primary [address] [place], [place] Dx) [place] [phone] Social History Tobacco Use Types Packs/Day Years [...] diagnosis was Malignant neoplasm of prostate ([facility]). Assessment: Assessment Completed By: Janae [...] prostate documented in this encounter Care Teams Cryogenics Repairer Relationship Specialty Start Date End Date Bobby Das MD PCP - General 07/06/[address] [place] [address] ,[address] [place] [address] documented as of this encounter
--- OUTSIDE RECORDS SUMMARY | 2022-08-02 10:02 | XMS_ITS | Encounter Summary ---
:1940 Author Organization [facility] Address [address] [place] [address] Care Team Providers Name Role Phone Bobby Das MD Primary Care Provider Reason for Visit Reason Onset Date Comments Medication Management 02/16/2018 Encounter Details Date Type Department Care Team Description 02/16/2018 Orders Only [facility] Radiation De Law inserting machine operator - [address] [id number] Social History Tobacco Use Types Packs/Day Years [...] on filedocumented in this encounter Care Teams Mva Operator Relationship Specialty Start Date End Date Bobby Das MD PCP - General 07/06/[address] [place] [address],[address] [place] [address] documented as of this encounter
--- OUTSIDE RECORDS SUMMARY | 2022-08-02 10:02 | XMS_ITS | Encounter Summary ---
:1940 Author Organization [facility] Address [address] [place] [address] Care Team Providers Name Role Phone Bobby Das MD Primary Care Provider Encounter Details Date Type Department Care Team Description 01/08/2018 Hospital [facility]counter [facility] Aries Gutierrez Radiation Oncology - III, [facility] [address] [address] [address], [place] [phone] (Wo rk) Social History Tobacco Use Types [...] on filedocumented in this encounter Care Teams Pie Filler Relationship Specialty Start Date End Date Bobby Das MD PCP - General 07/06/[address] [place] [address],[address] [place] [address] documented as of this encounter
--- OUTSIDE RECORDS SUMMARY | 2022-08-02 10:02 | XMS_ITS | Encounter Summary ---
:1940 Author Organization [facility] Address [address] [place] [address] Care Team Providers Name Role Phone Bobby Das MD Primary Care Provider Reason for Visit Reason Onset Date Comments Cancer 03/18/2018 Encounter Details Date Type Department Care Team Description 03/18/2018 Telephone [facility] Aries Gutierrez II, Cancer Radiation Oncology - [address] [address] [address], [place] [address] (Wo rk) Social History Tobacco Use Types Packs/Day Years Used Date Current Every Day Smoker Smokeless Tobacco: Never Used Sex Assigned at Date Recorded Not on file documented as of this encounter Miscellaneous Notes Telephone Encounter - Delores Gutierrez III, MD - 03/18/2018 7670 EDT RADIATION ONCOLOGY Mr. Zamora called the [...] this month. Sj Gutierrez MD Radiation Oncology [phone] (office) [phone] (pager) This note has been prepared with voice recognition software. Please excuse manager of supply chain errors. documented in this encounter Plan of Treatment Not on filedocumented as of this encounter Visit Diagnoses Not on filedocumented in this encounter Care Teams Protection Engineer Relationship Specialty Start Date End Date Bobby Das MD PCP - General 07/06/[address] [place] [address] ,[address] [place] [address] documented as of this encounter
--- OUTSIDE RECORDS SUMMARY | 2022-08-02 10:02 | XMS_ITS | Encounter Summary ---
:1940 Author Organization [facility] Address [address] [place] [address] Care Team Providers Name Role Phone Bobby Das MD Primary Care Provider Reason for Visit Reason Onset Date Comments Follow-up 01/12/2018 Encounter Details Date Type Department Care Team Description 01/12/2018 Telephone [facility] Radiation De Law RN Follow-up Oncology - [address] [address] Social History Tobacco Use Types Packs/Day Years Used Date Current Every Day Smoker Smokeless Tobacco: Never Used Sex Assigned at Date Recorded Not on file documented as of this encounter Miscellaneous Notes Telephone Encounter - Isela Law RN - 01/12/2018 3013 EST This is a planned post procedure [...] on filedocumented in this encounter Care Teams Phosphoric Acid Supervisor Relationship Specialty Start Date End Date Bobby Das MD PCP - General 07/06/[address] [place] [address],[address] [place] [address] documented as of this encounter
--- OUTSIDE RECORDS SUMMARY | 2022-08-02 10:02 | XMS_ITS | Encounter Summary ---
:1940 Author Organization [facility] Address [address] [place] [address] Care Team Providers Name Role Phone Bobby Das MD Primary Care Provider Encounter Details Date Type Department Care Team Description 01/08/2018 Procedure visit [facility] Aries Gutierrez Radiation Oncology - IIIMD [address] [address] [address], [place] [phone] (Wo rk) Social History Tobacco Use Types [...] prostate gland. DATE OF SERVICE: 01/08/2018 INDICATIONS: [id number], PSA 12.8 Winifred score 3+4 = 7 [...] documented as of this encounter Care Teams Stereo Map Plotter Operator Relationship Specialty Start Date End Date Bobby Das MD PCP - General 07/06/[address] [place] [address] ,[address] [place] [address] documented as of this encounter
--- OUTSIDE RECORDS SUMMARY | 2022-08-02 10:02 | XMS_ITS | Encounter Summary ---
:[address] [facility] Address [address] [place] [address] Care Team Providers Name Role Phone Bobby Das MD Primary Care Provider Reason for Visit Reason Comments Prostate Cancer Encounter Details Date Type Department Care Team Description 02/03/2018 Radiation Therapy [facility] Aries Gutierrez alignant neoplasm Visit Radiation Oncology Felix EAST MD of formerly [facility] - [address] ([facility]) ([facility]) [address] [place] [address] (Primary Dx) [facility], [address] [place] [address] [address] [place] [address] Social History Tobacco Use Types Packs/Day Years Used Date Current Every Day Smoker Smokeless Tobacco: Never Used Sex Assigned at Date Recorded Not on file documented as of this encounter Progress Notes Delores Gutierrez III, MD - 02/03/2018 9379 EDT On Treatment Visit Assessment: Koko Zamora is currently receiving radiation therapy treatment and is being seen today for his weekly on treatment visit. The encounter diagnosis was Malignant neoplasm of prostate ([facility]). Assessment: Assessment Completed By: Felix Gutierrez MD (02/03/18 1159) Radiation Therapy: Cumulative RT Dose 600 cGy [...] Changes: None Sj Gutierrez MD Radiation Oncology [phone] (office) [phone] (pager) documented in this encounter Plan of [...] documented as of this encounter Care Teams Turn Operator Relationship Specialty Start Date End Date Bobby Das MD PCP - General 07/06/[address] [place] [address],[address] [place] [address] documented as of this encounter
--- OUTSIDE RECORDS SUMMARY | 2022-08-02 10:02 | XMS_ITS | Encounter Summary ---
:1940 Author Organization [facility] Address [address] [place] [address] Care Team Providers Name Role Phone Bobby Das MD Primary Care Provider Encounter Details Date Type Department Care Team Description 02/08/2018 Hospital Encounter [facility] Aries Gutierrez Radiation Oncology - III, [facility] 111 [facility] [address] [place] [address] [address], [place] [address] (Wo rk) Social History Tobacco Use Types [...] filedocumented in this encounter Care Teams Solar Project Engineer Relationship Specialty Start Date End Date Bobby Das MD PCP - General 07/06/[address] [place] [address],[address] [place] [address] documented as of this encounter
--- OUTSIDE RECORDS SUMMARY | 2022-08-02 10:02 | XMS_ITS | Encounter Summary ---
:1940 Author Organization Address [address] [place] [address] Care Team Providers Name Role Phone Bobby Das MD Primary Care Provider Encounter Details Date Type Department Care Team Description 04/23/2018 Hospital Encounter [facility]- Devi Unknown, Provider, [facility] [address] [facility] [phone] [place] [address] (Work) [phone] Social History Tobacco Use Types Packs/Day Years [...] filedocumented in this encounter Care Teams Graphic Artist Relationship Specialty Start Date End Date Bobby Das MD PCP - General 07/06/[address] [place] [address] ,[address] [place] [address] documented as of this encounter
--- OUTSIDE RECORDS SUMMARY | 2022-08-02 10:02 | XMS_ITS | Encounter Summary ---
:1940 Author Organization [facility] Address [address] [place] [address] Care Team Providers Name Role Phone Bobby Das MD Primary Care Provider Reason for Visit Reason Onset Date Comments Prostate Cancer 11/20/2017 Encounter Details Date Type Department Care Team Description 11/20/2017 Orders Only [facility] Aries Gutierrez Radiation Oncology - [facility], [address] [address] [address], [place], [place] [address] (Wo rk) Social History Tobacco Use Types [...] filedocumented in this encounter Care Teams Campaign Analyst Relationship Specialty Start Date End Date Bobby Das MD PCP - General 07/06/[address] [place] [address] ,[address] [place] [address] documented as of this encounter
--- OUTSIDE RECORDS SUMMARY | 2022-08-02 10:02 | XMS_ITS | Encounter Summary ---
:1940 Author Organization [facility] Address [address] [place] [address] Care Team Providers Name Role Phone Bobby Das MD Primary Care Provider Encounter Details Date Type Department Care Team Description 03/04/2018 Documentation Visit [facility] Aries Gutierrez Radiation Oncology - III, [address] [address] [address], [place] [phone] (Wo rk) Social History Tobacco Use Types Packs/Day Years Used Date Current Every Day Smoker Smokeless Tobacco: Never Used Sex Assigned at Date Recorded Not on file documented as of this encounter Miscellaneous Notes Treatment Summary - Delores Gutierrez III, MD - 03/04/2018 1339 EDT Images from the original note were not included. RADIATION ONCOLOGY TREATMENT SUMMARY SITE, HISTOPATHOLOGY AND STAGE: [id number], PSA 12.8 [place] score 3+4 = 7 adenocarcinoma prostate. He [...] Dr. José. Sj Gutierrez MD Radiation Oncology [phone] (office) [phone] (pager) This note has been prepared with voice recognition software. Please excuse public health outreach worker errors. documented in this encounter Plan of Treatment Not on filedocumented as of this encounter Visit Diagnoses Not on filedocumented in this encounter Care Teams Illustrator Set Relationship Specialty Start Date End Date Bobby Das MD PCP - General 07/06/[address] [place] [address],[address] [place] [address] documented as of this encounter
--- OUTSIDE RECORDS SUMMARY | 2022-08-02 10:02 | XMS_ITS | Encounter Summary ---
:1940 Author Organization [facility] Address [address] [place] [address] Care Team Providers Name Role Phone Bobby Das MD Primary Care Provider Encounter Details Date Type Department Care Team Description 11/20/2017 Results Only Imaging [facility]- Unknown, [facility] ProviderMD [phone] Social History Tobacco Use Types Packs/Day Years [...] on filedocumented in this encounter Care Teams Rotary Drum Tanner Relationship Specialty Start Date End Date Bobby Das MD PCP - General 07/06/[address] [place] [address],[address] [place] [address] documented as of this encounter
--- OUTSIDE RECORDS SUMMARY | 2022-08-02 10:02 | XMS_ITS | Encounter Summary ---
:1940 Author Organization [facility] Address [address] [place] [address] Care Team Providers Name Role Phone Bobby Das MD Primary Care Provider Reason for Visit Reason Comments Other Encounter Details Date Type Department Care Team Description 03/04/2019 Refill [facility] Radiation Adelfo Gutierrez ld Felix III, Other Oncology - Main [facility] [address] [place] [phone] [place] [address] [facility] 2 [place], [place] [address] (Wo rk) Social History [...] documented as of this encounter Care Teams Horizontal Resaw Operator Relationship Specialty Start Date End Date Bobby Das MD PCP - General 07/06/[address] [place] [address],[address] [place] [address] documented as of this encounter
--- OUTSIDE RECORDS SUMMARY | 2022-08-02 10:02 | XMS_ITS | Encounter Summary ---
:1940 Author Organization [facility] Address [address] [place] [address] Care Team Providers Name Role Phone Bobby Das MD Primary Care Provider Reason for Visit Reason Comments Prostate Cancer Encounter Details Date Type Department Care Team Description 11/19/[address] [facility] Aries Gutierrez neoplasm of Radiation Oncology - Felix EAST MD prostate ([facility]) Main [address] ([facility]) (Primary 111 [facility] Dx) [place], [place] [phone] [place] [address] [facility] [address] [place] [address] (Wo rk) Social History Tobacco [...] Dr. José. 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 He and his own and operate a [...] bone scan which will be done at [facility] tomorrow. Once that result is available [...] with voice recognition software. Please excuse cath laboratory technician errors documented in this encounter Plan of [...] daily. added in this encounter Care Teams Plan Consultant Relationship Specialty Start Date End Date Bobby Das MD PCP - General 07/06/[address] [place] [address] ,[address] [place] [address] documented as of this encounter
--- OUTSIDE RECORDS SUMMARY | 2022-08-02 10:02 | XMS_ITS | Encounter Summary ---
:1940 Author Organization [facility] Address [address] [place] [address] Care Team Providers Name Role Phone Bobby Das MD Primary Care Provider Reason for Visit Reason Onset Date Comments Prostate Cancer 11/20/2017 Encounter Details Date Type Department Care Team Description 11/20/2017 Telephone [facility] Aries Gutierrez Cancer Radiation Oncology - III, [address] [address] [address], [place] [address] (Wo rk) Social History Tobacco Use Types Packs/Day Years Used Date Current Every Day Smoker Smokeless Tobacco: Never Used Sex Assigned at Date Recorded Not on file documented as of this encounter Miscellaneous Notes Telephone Encounter - Delores Gutierrez III, MD - 11/20/2017 8742 EST RADIATION ONCOLOGY I spoke with Mr. Zamora by phone today. [facility] today[facility] no evidence of metastatic disease. He is eager to start therapy. I discussed his care with Dr. José. We will coordinate initiation of androgen deprivation as soon as practical. He will return for fiducial marker placement in approximately 6 weeks, anticipate we will start his treatment approximately 2 months after his first injection. Sj Gutierrez MD Radiation Oncology [phone] (office) [phone] (pager) This note has been prepared with voice recognition software. Please excuse quill worker errors. documented in this encounter Plan of Treatment Not on filedocumented as of this encounter Visit Diagnoses Diagnosis Malignant neoplasm of prostate (HCC-CMS) (HCC) - Primary Malignant neoplasm of prostate documented in this encounter Care Teams Storage Worker Relationship Specialty Start Date End Date Bobby Das MD PCP - General 07/06/[address] [place] [address],[address] [place] [address] documented as of this encounter
--- OUTSIDE RECORDS SUMMARY | 2022-08-02 10:02 | XMS_ITS | Encounter Summary ---
:1940 Author Organization [facility] Address [address] [place] [address] Care Team Providers Name Role Phone Bobby Das MD Primary Care Provider Reason for Visit Reason Comments Cancer Encounter Details Date Type Department Care Team Description 02/13/2018 Radiation Therapy [facility] Isela Law Ma lignant neoplasm of Visit Radiation Oncology - RN prostat e ([facility]) Main [place] (Primary Dx) [address] [place] [address] Social History Tobacco Use Types Packs/Day [...] encounter diagnosis was Malignant neoplasm of prostate ([facility]). Assessment: Assessment Completed By: Isela Law [...] prostate documented in this encounter Care Teams Still Cleaner Relationship Specialty Start Date End Date Bobby Das MD PCP - General 07/06/[address] [place] [address] ,[address] [place] [address] documented as of this encounter
--- OUTSIDE RECORDS SUMMARY | 2022-08-02 10:02 | XMS_ITS | Encounter Summary ---
:1940 Author Organization [facility] Address [address] [place] [address] Care Team Providers Name Role Phone Bobby Das MD Primary Care Provider Encounter Details Date Type Department Care Team Description 01/16/2018 Results Only [facility] Center Aries Gutierrez Imaging Radiation Oncology - III, [facility] [address] [place] [address] Pavilion, [place] [address] (Wo rk) Social History Tobacco Use Types [...] on filedocumented in this encounter Care Teams Segment Assembler Relationship Specialty Start Date End Date Bobby Das MD PCP - General 07/06/[address] [place] [address] ,[address] [place] [address] documented as of this encounter
--- OUTSIDE RECORDS SUMMARY | 2022-08-02 10:02 | XMS_ITS | Encounter Summary ---
:1940 Author Organization [facility] Address [address] [place] [address] Care Team Providers Name Role Phone Bobby Das MD Primary Care Provider Encounter Details Date Type Department Care Team Description 10/29/2017 Hospital Encounter [facility] Unknown, Provider, [facility] [address] [facility] [phone] [place] [address] (Work) [phone] Social History Tobacco Use Types Packs/Day Years Used Date Never Assessed Sex Assigned at Date Recorded Not on file documented as of this encounter Discharge Disposition Disposition Code Departure Means Destination Home or Self Senior Living documented in this encounter Plan of Treatment Not on filedocumented as of this encounter Visit Diagnoses Not on filedocumented in this encounter Care Teams Plumbing Engineer Relationship Specialty Start Date End Date Bobby Das MD PCP - General 07/06/[address] [place] [address],[address] [place] [address] documented as of this encounter
--- OUTSIDE RECORDS SUMMARY | 2022-08-02 10:02 | XMS_ITS | Encounter Summary ---
:1940 Author Organization [facility] Address [address] [place] [address] Care Team Providers Name Role Phone Bobby Das MD Primary Care Provider Reason for Visit Reason Comments Cancer Encounter Details Date Type Department Care Team Description 02/16/2018 Radiation Therapy [facility] Isela Law Ma lignant neoplasm of Visit Radiation Oncology - RN prostleonid e ([facility]) Main [place] (Primary Dx) [address] [place] [address] Social History Tobacco Use Types Packs/Day [...] encounter diagnosis was Malignant neoplasm of prostate ([facility]). Assessment: Assessment Completed By: Isela Law RN [...] prostate documented in this encounter Care Teams Stylist Assistant Relationship Specialty Start Date End Date Bobby Das MD PCP - General 07/06/[address] [place] [address],[address] [place] [address] documented as of this encounter
--- OUTSIDE RECORDS SUMMARY | 2022-08-02 10:02 | XMS_ITS | Encounter Summary ---
:[address] [facility] Address [address] [place] [address] Care Team Providers Name Role Phone Bobby Das MD Primary Care Provider Reason for Visit Reason Comments Prostate Cancer Encounter Details Date Type Department Care Team Description 02/23/2018 Radiation Therapy [facility] Aries Gutierrez alignant neoplasm Visit Radiation Oncology Felix EAST MD of [facility] - [address] ([facility]) (Primary [address] [place] [address] Dx) [facility], [address] [place] [address] [address] [place] [address] Social History Tobacco Use Types [...] diagnosis was Malignant neoplasm of prostate ([facility]). Assessment: Assessment Completed By: Felix Gutierrez MD (02/23/18 0331) Radiation Therapy: Cumulative RT Dose 4800 cGy [...] Dr. King Sj Gutierrez MD Radiation Oncology [phone] (office) [phone] (pager) documented in this encounter Plan of Treatment Not on filedocumented as of this encounter Visit Diagnoses Diagnosis Malignant neoplasm of prostate (HCC-CMS) (HCC) - Primary Malignant neoplasm of prostate documented in this encounter Care Teams Emergency Veterinary Assistant Relationship Specialty Start Date End Date Bobby Das MD PCP - General 07/06/[address] [place] [address] ,[address] [place] [address] documented as of this encounter
--- OUTSIDE RECORDS SUMMARY | 2022-08-02 10:02 | XMS_ITS | Encounter Summary ---
:1940 Author Organization [facility] Address [address] [place] [address] Care Team Providers Name Role Phone Bobby Das MD Primary Care Provider Reason for Visit Reason Onset Date Comments Diagnostic Imaging Report 11/25/2017 Encounter Details Date Type Department Care Team Description 11/25/2017 Telephone [facility] Lynn Vargas RN Diagnostic Imaging Radiation Oncology - [address] [place] [address] Report [place], [place] [address] [place] [address] Social History Tobacco Use Types Packs/Day Years Used Date Current Every Day Smoker Smokeless Tobacco: Never Used Sex Assigned at Date Recorded Not on file documented as of this encounter Miscellaneous Notes Telephone Encounter - Lynn Vargas RN - 11/25/2017 [address] Das's office called stating that Kkoo Zamora would like further imaging to rule [...] on filedocumented in this encounter Care Teams Compliance Lead Relationship Specialty Start Date End Date Bobby Das MD PCP - General 07/06/[address] [place] [address] ,[address] [place] [address] documented as of this encounter
--- OUTSIDE RECORDS SUMMARY | 2022-08-02 10:02 | XMS_ITS | Encounter Summary ---
:1940 Author Organization [facility] Address [address] [place] [address] Care Team Providers Name Role Phone Bobby Das MD Primary Care Provider Reason for Referral Laboratory Services (Routine) - Closed Specialty Diagnoses / Procedures Referred By Contact Refer red To Contact Diagnoses Malignant neoplasm of prostate ([facility]) ([facility]) Aries Gutierrez III, Procedures PSA TOTAL, DIAGNOSTIC MD [address] [place] [phone] Referral ID Status Reason Start Date Expiration Date Visits Requ ested Visits Authorized [id number] Closed 07/11/2019 1 1 Encounter Details Date Type Department Care Team Description 01/08/2019 Documentation Visit [facility] Cancer Center Aries Gutierrez Malignant neoplasm Radiation Oncology Felix EAST MD of prostate - [address] ([facility]) (Primary [address] [facility] Dx) [facility], [address] [place] [address] [address] Social History Tobacco Use Types [...] neoplasm of prostate ([facility]) (HCC) - Primary Malignant neoplasm of prostate documented in this encounter Care Teams Psychiatric Clinician Relationship Specialty Start Date End Date Bobby Das MD PCP - General 07/06/[address] [place] [address],[address] [place] [address] documented as of this encounter
--- OUTSIDE RECORDS SUMMARY | 2022-08-02 10:02 | XMS_ITS | Encounter Summary ---
:1940 Author Organization [facility] Address [address] [place] [address] Care Team Providers Name Role Phone Bobby Das MD Primary Care Provider Reason for Visit Reason Comments Follow-up Encounter Details Date Type Department Care Team Description 12/02/2017 Office Visit [facility] Erlin José MD Malignant neoplasm of Urology - [address] ([facility] ([facility]) (Primary [address] [facility] [place] [address] [address], [place] [address] (Wo rk) Social History Tobacco [...] Progress Notes Chino José MD - 12/02/2017 3654 EST Chief Complaint: Chief Complaint Patient presents with ??? Follow-up HPI: Koko is a 77 y.o. male with prostate cancer. I originally saw the patient and [facility] and diagnosed him with Easley 3+4 prostate cancer associated with a PSA of 12.8. He underwent a bone scan for staging that came back negative for metastatic disease. He is seeing me today at [facility] for a Lupron injection. He started [...] desire to have sex ). Some terminal system operator hormonal therapy is associated with the [...] 12/02 documented in this encounter Care Teams Database Developer Relationship Specialty Start Date End Date Bobby Das MD PCP - General 07/06/[address] [place] [address],[address] [place] [address] documented as of this encounter
--- OUTSIDE RECORDS SUMMARY | 2022-08-02 10:02 | XMS_ITS | Encounter Summary ---
:1940 Author Organization [facility] Address [address] [place] [address] Care Team Providers Name Role Phone Bobby Das MD Primary Care Provider Reason for Visit Reason Onset Date Comments Appointment Related 03/19/2018 Encounter Details Date Type Department Care Team Description 03/19/2018 Telephone [facility] Dominique Mirza, Sloane ointment Related Urology - James campo RN [address] [place] [address] Social History Tobacco Use Types [...] there. ill plan to see him at [facility]. Tc to pt to advise he contact [facility] and be sure appt has been scheduled [...] so, can the pt be seen at [facility] as originally suggested in 's 01/05 progress note. Will call patient to let him know if he needs to f/u with and if so, can he be seen at [facility]. documented in this encounter Plan of Treatment Not on filedocumented as of this encounter Visit Diagnoses Not on filedocumented in this encounter Care Teams Training Generalist Relationship Specialty Start Date End Date Bobby Das MD PCP - General 07/06/[address] [place] [address],[address] [place] [address] documented as of this encounter
--- OUTSIDE RECORDS SUMMARY | 2022-08-02 10:02 | XMS_ITS | Encounter Summary ---
:1940 Author Organization [facility] Address [address] [place] [address] Care Team Providers Name Role Phone Bobby Das MD Primary Care Provider Encounter Details Date Type Department Care Team Description 06/17/2019 Results Only Imaging [facility]- Unknown, [facility] ProviderMD [phone] Social History Tobacco Use Types Packs/Day Years [...] on filedocumented in this encounter Care Teams Spray Gun Operator Relationship Specialty Start Date End Date Bobby Das MD PCP - General 07/06/[address] [place] [address] ,[address] [place] [address] documented as of this encounter
--- OUTSIDE RECORDS SUMMARY | 2022-08-02 10:02 | XMS_ITS | Encounter Summary ---
:1940 Author Organization [facility] Address [address] [place] [address] Care Team Providers Name Role Phone Bobby Das MD Primary Care Provider Encounter Details Date Type Department Care Team Description 10/29/2017 Results Only [facility] Erlin José MD Urology - [address] [address] [address], [place] [phone] (Wo rk) Social History Tobacco Use Types Packs/Day Years Used Date Never Assessed Sex Assigned at Date Recorded Not on file documented as of this encounter Plan of Treatment Not on filedocumented as of this encounter Procedures Procedure Name Priority Date/Time Associated Diagnosis Comme [facility] SURGICAL PATHOLOGY Routine 10/29/2017 8:21 EST [...] ? ETTA BAH ? Accession #: ? [id number] ? : ? 1940 (Age: 77) ??M [...] to 6: Prognostic Grad e Group I Rives score 3+4=7: Prognostic Grade Group II Rives score 4+3=7: Prognostic Grade Group III Winifred score 8: Prognostic Grade Group IV Winifred score 9-10: Prognostic Grade Group V References for Prognostic Grade Groups: J Clin Hercules 2012;30:8521-4009 Joey CASTAÑEDA. The Winifred Grading System (A Comple te Guide for Pathologists and Clinicians), LWW, 2013 Serg PM, Shell PW, Edward AW, Joey JI. Progno stic Winifred Grade Grouping: Data based on the modified Rives scoring s yste. BJU Int 2013;111:753-760 A. [...] leason pattern: ? Grade 3 ?- ??Secondary Rives pattern: ? Grade 3 ?- ??Total Gle [...] of 2 cores. ? - Global tumor Rives score: ?3 + 4 = 7 (30% [...] Organization Address City/State/ZIP Code Phon e Number [facility] [address] [place] [address] SERVICES documented in this encounter Visit Diagnoses Not on filedocumented in this encounter Care Teams Craniologist Relationship Specialty Start Date End Date Bobby Das MD PCP - General 07/06/[address] [place] [address] ,[address] [place] [address] documented as of this encounter
--- OUTSIDE RECORDS SUMMARY | 2022-08-02 10:02 | XMS_ITS | Encounter Summary ---
:1940 Author Organization [facility] Address [address] [place] [address] Care Team Providers Name Role Phone Bobby Das MD Primary Care Provider Encounter Details Date Type Department Care Team Description 08/28/2020 Lab Requisition [facility] Outr Resulting Lab, Pathology & Laboratory Provider [facility] [address] [place], [place] [phone] Social History Tobacco Use Types Packs/Day Years [...] (08/28/2020 9:58 EDT) COVID-19 rt-PCR NEGATIVE Negative [facility] Result Comment: LABORATORY 2019-novel [...] Organization Address City/State/ZIP Code Phon e Number [id number] [place] COVID-19 TESTING (08/28/2020 9:58 EDT) Pathologist [facility] COVID-19 rt-PCR NEGATIVE Negative [facility] Result Comment: LABORATORY 2019-novel Coronavirus [...] Administration's Emergency Use Authorization. Performing Lab [facility] LABORATORY SERVICES Specimen Swab Performing Organization Address City/State/ZIP Code Phon e Number [facility] [address] [place] [address] SERVICES [facility] [place], [place] documented in this encounter Visit Diagnoses Not on filedocumented in this encounter Care Teams Rag Cutting Machine Operator Relationship Specialty Start Date End Date Bobby Das MD PCP - General 07/06/[address] [place] [address] ,[address] [place] [address] documented as of this encounter
--- OUTSIDE RECORDS SUMMARY | 2022-08-02 10:02 | XMS_ITS | Encounter Summary ---
:1940 Author Organization [facility] Address [address] [place] [address] Care Team Providers Name Role Phone Bobby Das MD Primary Care Provider Encounter Details Date Type Department Care Team Description 07/16/2019 Phlebotomy Only [facility] Wardrobe Attendant, Eboni barbosa neoplasm - [facility] [place] Outpatient of prostate [address] [facility] ([facility]) (Primary [place], [place] Dx) [address] Social History Tobacco Use [...] DIAGNOSTIC of prostate procedure are i n ([facility]) the results section. documented in this encounter Results PSA TOTAL, DIAGNOSTIC (07/16/2019 9:30 EDT) PSA 0.1 0 - 6.5 ng/ml [facility] Comment: LABORATORY SERVICES Serum PSA concentration should not be interpreted as absolute evidence for the presence or absence of malignant disease. Assayed utilizing Siemens ([employer]) chemiluminescent technology. ??Values obtained by using different assay methods cannot be used interchangeably. Specimen Blood specimen (specimen) - Blood Performing Organization Address City/State/ZIP Code Phon e Number [facility] [address] [place] [address] SERVICES documented in this encounter Visit Diagnoses Diagnosis Malignant neoplasm of prostate ([facility]) (HCC) - Primary Malignant neoplasm of prostate documented in this encounter Orders Lab Orders Without Results Count Last Ordered Date st Ordered Date PSA TOTAL, DIAGNOSTIC 1 07/16/2019 documented in this encounter Care Teams Instructor Military Science Relationship Specialty Start Date End Date Bobby Das MD PCP - General 07/06/[address] [place] [address],[address] [place] [address] documented as of this encounter
--- OUTSIDE RECORDS SUMMARY | 2022-08-02 10:02 | XMS_ITS | Encounter Summary ---
:1940 Author Organization [facility] Address [address] [place] [address] Care Team Providers Name Role Phone Bobby Das MD Primary Care Provider Encounter Details Date Type Department Care Team Description 04/12/2021 Lab Requisition [facility] Outr Resulting Lab, Pathology & Laboratory Provider [facility] [address] [place], [place] [address] Social History Tobacco Use Types Packs/Day Years [...] nature Testosterone 269 229 - 902 ng/dL [facility] SERVICES Specimen Blood - Venous blood (substance) Narrative [facility] SERVICES - 04/12/2021 22:19 EDT The results of this assay can be falsley elevated due to the consumption of Biotin. Performing Organization Address City/State/ZIP Code Phon e Number [facility] [address] [place] [address] SERVICES documented in this encounter Visit Diagnoses Not on filedocumented in this encounter Care Teams Forensic Psychologist Relationship Specialty Start Date End Date Bobby Das MD PCP - General 07/06/[address] [place] [address] ,[address] [place] [address] documented as of this encounter
--- OUTSIDE RECORDS SUMMARY | 2022-08-02 10:02 | XMS_ITS | Encounter Summary ---
:1940 Author Organization [facility] Address [address] [place] [address] Care Team Providers Name Role Phone Bobby Das MD Primary Care Provider Encounter Details Date Type Department Care Team Description 02/25/2018 Documentation [facility] V[facility] Radiation Oncology - [address] [place] [address] [place] [address] Social History Tobacco Use Types Packs/Day Years Used Date Current Every Day Smoker Smokeless Tobacco: Never Used Sex Assigned at Date Recorded Not on file documented as of this encounter Progress Notes Lynn Vargas RN - 02/25/2018 5753 EDT Koko Zamora requested to be seen [...] filedocumented in this encounter Care Teams Clinical Leader Relationship Specialty Start Date End Date Bobby Das MD PCP - General 07/06/[address] [place] [address],[address] [place] [address] documented as of this encounter
--- OUTSIDE RECORDS SUMMARY | 2022-08-02 10:02 | XMS_ITS | Encounter Summary ---
:1940 Author Organization [facility] Address [address] [place] [address] Care Team Providers Name Role Phone Bobby Das MD Primary Care Provider Encounter Details Date Type Department Care Team Description 01/08/2019 Orders Only [facility] [place] Aries Gutierrez neoplasm of Radiation Oncology - Felix EAST MD prostate ([facility]) [address] (Primary Dx) [address] [place] [address] [facility] [phone] [facility] [address] [place] [address] (Wo rk) Social History Tobacco Use Types Packs/Day Years Used Date Current Every Day Smoker Smokeless Tobacco: Never Used Sex Assigned at Date Recorded Not on file documented as of this encounter Plan of Treatment Not on filedocumented as of this encounter Results PSA TOTAL, DIAGNOSTIC (07/16/2019 9:30 EDT) PSA 0.1 0 - 6.5 ng/ml [facility] Comment: LABORATORY SERVICES Serum PSA concentration should not be interpreted as absolute evidence for the presence or absence of malignant disease. Assayed utilizing Siemens ([employer]) chemiluminescent technology. ??Values obtained by using different assay methods cannot be used interchangeably. Specimen Blood specimen (specimen) - Blood Performing Organization Address City/State/ZIP Code Phon e Number [facility] [address] [place] [address] SERVICES documented in this encounter Visit Diagnoses Diagnosis Malignant neoplasm of prostate ([facility]) (HCC) - Primary Malignant neoplasm of prostate documented in this encounter Care Teams Cooker Meal Relationship Specialty Start Date End Date Bobby Das MD PCP - General 07/06/[address] [place] [address],[address] [place] [phone] documented as of this encounter
--- OUTSIDE RECORDS SUMMARY | 2022-08-02 10:02 | XMS_ITS | Encounter Summary ---
:1940 Author Organization [facility] Address [address] [place] [address] Care Team Providers Name Role Phone Abby Das MD Primary Care Provider Encounter Details Date Type Department Care Team Description 04/22/2018 Results Only [facility] Abby Das MD [phone] [place] [address],[address] [place], [place] [phone] (Wo rk) Social History Tobacco Use Types Packs/Day Years Used Date Current Every Day Smoker Smokeless Tobacco: Never Used Sex Assigned at Date Recorded Not on file documented as of this encounter Plan of Treatment Not on filedocumented as of this encounter Procedures Procedure Name Priority Date/Time Associated Diagnosis Comme [facility] SURGICAL PATHOLOGY Routine 04/22/2018 8:40 EDT Re sults for this procedure are i n the results section. documented in this encounter Results SURGICAL PATHOLOGY (04/22/2018 8:40 EDT) Pathology Report: SURGICAL PATHOLOGY REPORT [facility] Reports generated via electronic interface contain abram ginal data; LABORATORY however they are lacking the format of the original re port. SERVICES Caution should be taken when reading/interpreting unfo rmatted reports. Name: ? ETTA BAH ? Accession #: ? [id number] ? : ? 1940 (Age: 77) ??M [...] Phon e Number [facility] [address] [place] [address] SERVICES documented in this encounter Visit Diagnoses Not on filedocumented in this encounter Care Teams Special Assets Officer Relationship Specialty Start Date End Date Abby Das MD PCP - General 07/06/[address] [place] [address] ,[address] [place] [phone] documented as of this encounter
--- OUTSIDE RECORDS SUMMARY | 2022-08-02 10:02 | XMS_ITS | Encounter Summary ---
:1940 Author Organization [facility] Address [address] [place] [address] Care Team Providers Name Role Phone Bobby Das MD Primary Care Provider Reason for Visit Reason Comments Prostate Cancer Follow up Encounter Details Date Type Department Care Team Description 07/16/2019 Office Visit [facility] Aries Gutierrez neoplasm of Radiation Oncology - Felix EAST MD prostate ([facility]) Main [address] (Primary Dx) [address] [place] [id number] [place] [address], [place] [phone] [facility] [address] [place] [address] (Wo rk) Social History Tobacco [...] DATE OF SERVICE: 07/16/2019 DIAGNOSIS AND STAGE: [id number], PSA 12.8 Winifred score 3+4 = 7 [...] this point. He is being evaluated at [facility] next week for possible tuboplasty. With [...] prepared with voice recognition software. Please excuse parimutuel ticket checker errors. documented in this encounter Plan [...] ORAL) added in this encounter Care Teams Auger Machine Offbearer Relationship Specialty Start Date End Date Bobby Das MD PCP - General 07/06/[address] [place] [address],[address] [place] [address] documented as of this encounter
--- OUTSIDE RECORDS SUMMARY | 2022-08-02 10:02 | XMS_ITS | Encounter Summary ---
:1940 Author Organization [facility] Address [address] [place] [address] Care Team Providers Name Role Phone Bobby Das MD Primary Care Provider Reason for Visit Reason Comments Follow-up Injection Encounter Details Date Type Department Care Team Description 01/05/2018 Office Visit [facility] Erlin José MD Malignant neoplasm of Urology - Main [address] [place] [address] ([facility]) [facility]) (Primary [address] [facility], [facility]) [place] [address] Pavilion, [place] [address] (Wo rk) Social History Tobacco [...] Progress Notes Chino José MD - 01/05/2018 9708 EST Chief Complaint: Chief Complaint Patient presents with ??? Follow-up Injection HPI: Koko is a 77 y.o. male with prostate cancer. 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 He previously had [...] Dr. Gutierrez this week See me at [facility] after radiation therapy is complete with [...] mg documented in this encounter Care Teams Steward/Stewardess Relationship Specialty Start Date End Date Bobby Das MD PCP - General 07/06/[address] [place] [address],[address] [place] [phone] documented as of this encounter
--- OUTSIDE RECORDS SUMMARY | 2022-08-02 10:03 | XMS_ITS | Encounter Summary ---
:1940 Author Organization [facility] Address [address] [place] [address] Care Team Providers Name Role Phone Unknown, Provider Primary Care Provider Encounter Details Date Type Department Care Team Description 07/03/2015 Results [address] [facility] Abby Das MD [phone] [place] [address],[address] [place], [place] [phone] (Wo rk) Social History Tobacco Use Types Packs/Day Years Used Date Never Assessed Sex Assigned at Date Recorded Not on file documented as of this encounter Plan of Treatment Not on filedocumented as of this encounter Procedures Procedure Name Priority Date/Time Associated Diagnosis Comme [facility] SURGICAL PATHOLOGY Routine 07/03/2015 8:54 EDT Re sults for this procedure are i n the results section. documented in this encounter Results SURGICAL PATHOLOGY (07/03/2015 8:54 EDT) Pathology Report: SURGICAL PATHOLOGY REPORT [facility] Reports generated via electronic interface contain abram ginal data; LABORATORY however they are lacking the format of the original re port. SERVICES Caution should be taken when reading/interpreting unfo rmatted reports. Name: ? ETTA BAH ? Accession #: ? [id number] ? : ? 1940 (Age: 74) ??M ? Collect Date: ? 07/03/2015 ? Location: ? [facility] ? Receive Date: ? 07/04/20 15 ? Provider: ABBY DAS MD Copy to: ? Final Pathologic Diagnosis: SKIN OF CONFUCIANIST, RIGHT, EXCISION: - Basal cell carcinoma, infiltrative [...] the above diagnosi s. Specimen(s) Received: R mormonism Clinical History: Basal cell carcinoma reexcision Gross [...] Organization Address City/State/ZIP Code Phon e Number [facility] [address] [place] [address] SERVICES documented in this encounter Visit Diagnoses Not on filedocumented in this encounter Care Teams Extended Insurance Clerk Relationship Specialty Start Date End Date Unknown, Provider, PCP - General 07/03/15 07/05/15 documented as of this encounter
--- OUTSIDE RECORDS SUMMARY | 2022-08-05 08:59 | XMS_ITS | Encounter Summary ---
:1940 Author Organization [place] [address] Care Team Providers Name Role Phone Bobby Das MD Primary Care Provider Reason for Referral Consultation (Routine) - Authorized Specialty Diagnoses / Procedures Referred By Contact Refer red To Contact Gastroenterology Diagnoses Adenomatous polyp of colon, unspecified part of colon Colonoscopy 06/25/22, discussed w/Dr. Ponce needs to be seen in clinic to discuss polyp / removal iso plavix & DOAC Isi Celaya MD [facility] D [facility] [place] [address] [place] [address] Phone: Fax: Referral ID Status Reason Start Date Expiration Visits Visits Date Requested Authorized [id number] Authorized Consult, 06/25/2022 06/25/2023 1 1 Test & Treat Scheduling Instructions To be seen in ~2mo Encounter Details Date Type Department Care Team Description 06/25/2022 Orders Only Gastroenterology at [facility] Isi Celaya Adenomatous polyp of [facility] Bobby [place], [place] [address] [facility] part of colon [phone] [facility] [place] [address] Social History Tobacco Use Types Packs/Day Years [...] Date Type Specialty Care Team Description 08/08/2022 TH Visit (TeleHealth) Gastroenterology [place] MD [facility] GASTROENTEROLOGY DEPT [place], [place] [address] (Wo rk) 09/05/2022 Appointment Cardiology Trinity Reid MD [facility] CARDIOLOGY [place], [place] [address] (Wo rk) 09/05/2022 Office Visit Cardiology Trinity Reid MD [facility] CARDIOLOGY [place], [place] [address] (Wo rk) 10/02/2022 Clinical Support Dermatology Thai Lynn MD [facility] DR JENNY BILLY-[place]MAT [place], [place] [address] (Wo rk) 10/02/2022 Procedure visit Dermatology Jace Lynn MD [facility] DR JENNY BILLY[place], [place] [address] (Wo rk) Scheduled Referrals Name Type Priority Associated Order Schedule Diagnoses Referral to Outpatient Routine Adenomatous polyp Ordered: Gastroenterology Referral of colon, 06/25/2022 unspecified part of colon documented as of this encounter Visit Diagnoses Diagnosis Adenomatous polyp of colon, unspecified part of colon documented in this encounter Care Teams Passenger Representative Relationship Specialty Start Date End Date Bobby Das MD PCP - General 10/02/[address] [place] [address] [place] [phone] documented as of this encounter
--- OUTSIDE RECORDS SUMMARY | 2022-08-05 08:59 | XMS_ITS | Encounter Summary ---
:1940 Author Organization [facility] [place] [address] Care Team Providers Name Role Phone Bobby Das MD Primary Care Provider Encounter Details Date Type Department Care Team Description 07/01/2022 Telephone Dermatology at [facility], Zainab Dupree, [facility] [address] [place] [address] Social History Tobacco Use Types Packs/Day Years [...] his 09/02/2022 appointment for Mohs with Dr Lynn, he declines to reschedule Mohs Surgery at [...] TH Visit (TeleHealth) Gastroenterology [place] MD [facility] GASTROENTEROLOGY DEPT [place], [place] [address] (Wo rk) 09/05/2022 Appointment Cardiology Trinity Reid MD [facility] CARDIOLOGY [place], [place] [address] (Wo rk) 09/05/2022 Office Visit Cardiology Trinity Reid MD [facility] CARDIOLOGY [place], [place] [address] (Wo rk) 10/02/2022 Clinical Support Dermatology Thai Lynn MD [facility] DR JENNY BILLY-DERMAT [place], [place] [address] (Wo rk) 10/02/2022 Procedure visit Dermatology Jace Lynn MD [facility] DR JENNY BILLY[place]DER[place], [place] [address] (Wo rk) documented as of this encounter Visit Diagnoses Not on filedocumented in this encounter Care Teams Transmitter Operator Relationship Specialty Start Date End Date Bobby Das MD PCP - General 10/02/[address] [place] [address] [place] [phone] documented as of this encounter
--- OUTSIDE RECORDS SUMMARY | 2022-08-05 08:59 | XMS_ITS | Encounter Summary ---
:1940 Author Organization [facility] [place] [address] Care Team Providers Name Role Phone Bobby Das MD Primary Care Provider Reason for Visit Reason Comments Medication Refill Encounter Details Date Type Department Care Team Description 07/31/2022 Refill Vascular Surgery at [facility] Nasrin Parra PA [facility] [place] [phone] VASCULAR SURGERY [phone] [place], [place] [address] (Wo rk) Social History Tobacco [...] TH Visit (TeleHealth) Gastroenterology [place] Collins MD [facility] GASTROENTEROLOGY DEPT [place], [place] [address] (Wo rk) 09/05/2022 Appointment Cardiology [place] MD [facility] CARDIOLOGY [place], [place] [address] (Wo rk) 09/05/2022 Office Visit Cardiology Trinity Reid MD [facility] CARDIOLOGY [place], [place] [address] (Wo rk) 10/02/2022 Clinical Support Dermatology Thai Lynn MD [facility] DR JENNY BILLY-DERMAT [place], [place] [address] (Wo rk) 10/02/2022 Procedure visit Dermatology Jace Lynn MD [facility] DR JENNY BILLY[facility]DERMAT [place], [place] [address] (Wo rk) documented as of this encounter Visit Diagnoses Not on filedocumented in this encounter Care Teams Grinder Relationship Specialty Start Date End Date Bobby Das MD PCP - General 10/02/[address] [place] [address] [place] [phone] documented as of this encounter
--- OUTSIDE RECORDS SUMMARY | 2022-08-05 08:59 | XMS_ITS | Encounter Summary ---
:1940 Author Organization [place] [address] Care Team Providers Name Role Phone Abby Das MD Primary Care Provider Encounter Details Date Type Department Care Team Description 06/25/2022 Anesthesia Event Gastroenterology at [facility] Abby Alfaro MD [facility] [place] [address] [facility] David Lewis CRNA [facility] [place] [address] [place] [address] Anesthesia Record Procedure Summary Procedure Name [...] vein (antecubital fossa), Mame Peterson RN left; crqh-jjm-dyaopd catheter system; 18 gauge; Present on admission PIV 06/25/22; 1046; great 06/25/22 1046 by saphenous vein (medial side of Mame Peterson RN leg), right; npdy-gfq-dxdajw catheter system; Anatomical Landmarks; 18 gauge; Present [...] Procedure Summary Date: 06/25/22 Room / Location: [facility] ENDO 4 / [facility] ENDOSCOPY Anesthesia Start: 1101 Anesthesia Stop: 1202 Procedures: EGD, UPPER GI ENDOSCOPY (N/A Trunk) COLONOSCOPY; W CONTROL OF BLEEDING, ANY METHOD (N/A Trunk) SMALL BOWEL ENTEROSCOPY (N/A Trunk) Diagnosis: (melena +./-) Surgeons: Giovani Ponce MD Responsible Provider: Abby Alfaro MD Anesthesia Type: MAC ASA Status: 3 All Anesthesia Providers: Anesthesiologist: Abby Alfaro MD AUDIO/VISUAL MANAGER: David Gill CRNA Vitals Value Taken Time [...] Date Noted ??? Coronary artery disease involving chippewa-cree coronary artery of [place]-cree heart without angina dhjrvzci94/04/2022 ??? HFrEF (heart failure with reduced ejection [...] IR Biopsy Spine 07/20/2019 Abby Marshall MD [facility] INTERVENTIONL RAD ??? IR VERTEBROPLASTY LUMBAR MULTIPLE LEVELS 07/20/2019 IR Vertebroplasty Lumbar Multiple Levels 07/20/2019 Abby Marshall MD [facility] INTERVENTIONL RAD ??? IR VERTEBROPLASTY THORACIC SINGLE LEVEL 10/25/2020 IR Vertebroplasty Thoracic Single Level 10/25/2020 Matt Chisholm MD [facility] INTERVENTIONL RAD ??? PRO EMBLC/THRMBC FEMORAL POPLITEAL AORTO-ILIAC ARTERY Left 05/15/2022 EMBOLECTOMY OR THROMBECTOMY, FEMOROPOPLITEAL, AORTOILIAC ARTERY BY LEG INCISION (WRVU 19.48) performed by Fito Summers MD at [facility] MAIN OR ??? PRO UPPER GI ENDOSCOPY, CTRL BLEED 05/31/2022 EGD, W CONTROL OF BLEEDING, ANY METHOD performed by Giovani Ponce MD at [facility] ENDOSCOPY ??? PRO UPPER GI ENDOSCOPY, DIAGNOSTIC N/A 05/31/2022 EGD, UPPER GI ENDOSCOPY performed by Giovani Ponce MD at [facility] ENDOSCOPY Social History Tobacco Use ??? [...] risks discussed with patient. Plan discussed with AUDIO/VISUAL MANAGER. Anesthesia Screening documented in this encounter Plan of Treatment Upcoming Encounters Date Type Specialty Care Team Description 08/08/2022 TH Visit (TeleHealth) Gastroenterology [place] MD [facility] GASTROENTEROLOGY DEPT [place], [place] [address] (Wo rk) 09/05/2022 Appointment Cardiology Trinity Reid MD [facility] CARDIOLOGY [place], [place] [address] (Wo rk) 09/05/2022 Office Visit Cardiology Trinity Reid MD [facility] CARDIOLOGY [place], [place] [address] (Wo rk) 10/02/2022 Clinical Support Dermatology Thai Lynn MD [facility] DR JENNY BILLY-DERMAT [place], [place] [address] (Wo rk) 10/02/2022 Procedure visit Dermatology Jace Lynn MD [facility] DR JENNY BILLY[place]DER[place], [place] [address] (Wo rk) documented as of [...] mg documented in this encounter Care Teams Content Assistant Relationship Specialty Start Date End Date Abby Das MD PCP - General 10/02/[address] [place] [address] [place] [address] documented as of this encounter
--- OUTSIDE RECORDS SUMMARY | 2022-08-05 08:59 | XMS_ITS | Encounter Summary ---
:1940 Author Organization [facility] [place] [address] Care Team Providers Name Role Phone Bobby Das MD Primary Care Provider Encounter Details Date Type Department Care Team Description 06/25/2022 Hospital Encounter Gastroenterology at [facility] Giovani Ponce, [facility] [place] [address] [facility] [phone] [place] [address] [address] [place] [address] Social History Tobacco Use Types Packs/Day [...] the day after the procedure, use an dijp-eph-rqeysra spray to numb your throat. Sucking on [...] occurs, please contact your Doctor. Please call [phone] before 8pm Mon-Fri with problems, questions or concerns. If you call after 8pm or on weekends, call the Hospital at [phone] and ask to speak to the Supervisor Whipped To[employer] regional refrigerated cdl truck driver and the tower hoist operator will contact that person for you. When should you call for help? Call [phone] anytime you think you may need emergency [...] any problems. Where can you learn more? [facility] View your After Visit Summary and more online at [email or web address] If you would like to [...] cost to you. Content Version: 12.2 ?? [id number] [employer]. Care instructions adapted under license by [facility]. If you have questions about a medical condition or this instruction, always ask your healthcare professional. [employer] disclaims any warranty or liability for your [...] occurs, please contact your Doctor. Please call [phone] before 8pm Mon-Fri with problems, questions or concerns. If you call after 8pm or on weekends, call the Hospital at [phone] and ask to speak to the Supervisor Whipped [employer] regional refrigerated cdl truck driver and the tower hoist operator will contact that person for you. When should you call for help? Call [phone] anytime you think you may need emergency [...] any problems. Where can you learn more? [facility] View your After Visit Summary and more online at [email or web address] If you would like to [...] cost to you. Content Version: 12.2 ?? 6923-7771 [employer]. Care instructions adapted under license by [facility]. If you have questions about a medical condition or this instruction, always ask your healthcare professional. [employer] disclaims any warranty or liability for your [...] 21 (FLONASE) 50 mcg/actuation Nare route daily [place], Suspension as needed. fluorouraciL (EFUDEX) 5 % Cream daily. 0 06/0 01/2021 ascorbic acid, vitamin C, Take 1,000 [...] artery of [place] heart without angina [id number] ??? HFrEF (heart failure with reduced ejection [...] TH Visit (TeleHealth) Gastroenterology [place] MD [facility] GASTROENTEROLOGY DEPT [place], [place] [address] (Wo rk) 09/05/2022 Appointment Cardiology Trinity Reid MD [facility] CARDIOLOGY [place], [place] [address] (Wo rk) 09/05/2022 Office Visit Cardiology Trinity Reid MD [facility] CARDIOLOGY [place], [place] [address] (Wo rk) 10/02/2022 Clinical Support Dermatology Thai Lynn MD [facility] DR JENNY BILLY-DERMAT [place], [place] [address] (Wo rk) 10/02/2022 Procedure visit Dermatology Jace Lynn MD [facility] DR JENNY [place], [place] [address] (Wo rk) documented as of [...] Component Value Ref Test Analysis Performed At [facility] Range Method Time Signature UPPER GI [facility] ENDOSCOPY Endoscopy Procedure Date: 06/25/2022 10:33 AM ? Patient Name: Koko Zamora ? Date of : 1940 ? Age: 81 ? Order #: [id number] ? Instrument Name: EC-760P- [id number]- [id number] ? Procedure: ? Upper GI endoscopy Indications: ? Recent gastrointestinal bleeding Providers: ? Isi Munoz, ? Brissa Vee RN, Juvenal ? Confalone Referring MD: ?Christopher Stranathan Medicines: ? Propofol per Anesthesia Complications: ? [...] Colonoscope w as ? introduced through the [facility], and ? advanced to the proximal [...] Component Value Ref Test Analysis Performed At [facility] Method Time Signature COLONOSCOPY [facility] Endoscopy Procedure Date: 06/25/2022 10:33 AM ? Patient Name: Koko Zamora ? Date of : 1940 ? Age: 81 ? Order #: [id number] ? Instrument Name: EC-760P- [id number] ? Procedure: ? Colonoscopy Indications: ? Gastrointestinal [...] Procedure Code(s): ? --- Professional --- ? 12243, Colonoscopy, flexib le; with ? control of [...] of sigmoid ? colon CPT copyright 2020 [employer]. All rights reserved. The codes documented in this report are preliminary and upon monitor worker review may be revised to meet [...] Procedure) documented in this encounter Care Teams Foot Press Operator Relationship Specialty Start Date End Date Bobby Das MD PCP - General 10/02/[address] [place] [address] [place] [phone] documented as of this encounter
--- OUTSIDE RECORDS SUMMARY | 2022-08-05 08:59 | XMS_ITS | Clinical Summary ---
:1940 Author Organization [facility] [place] [address] Care Team Providers Name Role Phone Abby [...] 04/12/2021 Active (FLONASE) 50 mcg/actuation Each Nare [place], Suspension route daily as needed. 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 Permanent atrial fibrillation 06/13/2022 Last Assessment & [...] consideration of AV no de ablation and INVENTORY TECHNICIAN-D Limb ischemia 05/15/2022 History of basal cell carcinoma 05/31/2014 Basal cell carcinoma 03/29/2014 Verruca vulgaris 03/29/2014 AK (actinic keratosis) 03/29/2014 GIB (gastrointestinal bleeding) 06/28/2011 Overview: Secondary to 3-4 ASA/day, required admis lynette and blood transfusion MVP (mitral valve prolapse) s/p repair 06/28/2011 Overview: Surgery done at [facility] in 2 001 Hypertriglyceridemia 06/28/2011 Adhesive capsulitis of L shoulder 06/28/2011 Alcohol use 06/28/2011 Encounters Date Type Specialty Care Team Description 07/31/2022 Refill Vascular Surgery Nasrin Parra PA 07/01/2022 Telephone Dermatology Zainab Sommer CMA 06/25/2022 Surgery Gastroenterology Giovani Ponce UPPE R GI M, MD ENDOSCOPY 06/25/2022 Anesthesia Event Gastroenterology Abby Alfaro MD Lehmann, Jordi S, CRNA 06/25/2022 [...] Hicks MD Coronary priscilla ry disease involving aniak coronary artery of [place]iak heart without angina pectoris 06/19/2022 Telephone Cardiology Kourtney Jimenez RN 06/17/2022 Orders Only Dermatology Loretta Cohen Basal cell c carlos Paez MD (BCC) of right forehead 06/13/2022 Office Visit Cardiology Jeanette, Coronary artery disease involving aniak coronary artery of [place]iak heart without angina pectoris; Alan Hicks MD HFrEF (heart failure with reduced ejection fraction); Permanent atria l fibrillation 06/13/2022 Office Visit Vascular Surgery Fito Summers Limb isch alma Tan MD 06/13/2022 Tech Visit Vascular Surgery Edson Lagos Limb isc hemia L, [place] 06/10/2022 Office Visit Dermatology Loretta Cohen Neoplasm of MD Philippe unspecified beh avior of bone, soft t issue, and skin 05/31/2022 Anesthesia Event Gastroenterology Elmer Johnson MD Drost, Alexander J, CRNA 05/31/2022 Surgery Gastroenterology Giovani Ponce UPPE R GI M, MD ENDOSCOPY 05/31/2022 - Hospital Encounter Dominique Hinds GIB (g astrointestinal 06/02/2022 MD bleeding) (Primary Dx) Mahendra Victor MD Friedman, Harley P, MD Ratanamaneechat, Suphagaphan, MD 05/31/2022 Office Visit Vascular Surgery Stephanie Ghoshy Dizzy; B, CONSTRUCTION HELPER Atrial fibrilla tion, unspecified type; SOB (shortness of breath) 05/28/2022 Telephone Vascular Surgery Dominique Bolivar, DION 05/24/2022 Telephone Cardiology Kourtney Jimenez RN 05/21/2022 Hospital Encounter Cardiology Paroxysma l atrial fibrillation 05/20/2022 Surgery Cardiology Abundio Servin MD CATHETERIZATION 05/15/2022 Anesthesia Event Surgery Cari Hernandez MD Patel, Shreena K, LIBRARIAN 05/15/2022 Surgery Surgery MelinaFito EMBOLECTOMY Elton Tan MD THROMBECTOMY, FEMOROPOPLITEAL , [...] TH Visit (TeleHealth) Gastroenterology Dixon Collins MD [facility] GASTROENTEROLOGY DEPT [place], [place] [address] (Wo rk) 09/05/2022 Appointment Cardiology Trinity eRid MD [facility] CARDIOLOGY [place], [place] [address] (Wo rk) 09/05/2022 Office Visit Cardiology Trinity Reid MD [facility] CARDIOLOGY [place], [place] [address] (Wo rk) 10/02/2022 Clinical Support Dermatology Thai Lynn MD [facility] DR JENNY BILLY-DERMAT [place], [place] [address] (Wo rk) 10/02/2022 Procedure visit Dermatology Jace Lynn MD [facility] DR JENNY BILLY-DER[place], [place] [address] (Wo rk) Health Maintenance Due Date Last [...] Component Value Ref Test Analysis Performed At [facility] Range Method Time Signature UPPER GI [facility] ENDOSCOPY Endoscopy Procedure Date: 06/25/2022 10:33 AM ? Patient Name: Koko Zamora ? Date of : 1940 ? Age: 81 ? Order #: [id number] ? Instrument Name: [id number]- [id number] ? Procedure: ? Upper GI endoscopy Indications: ? Recent gastrointestinal bleeding Providers: ? Giovani Ponce, [facility], ? Brissa Vee RN, Juvenal ? Confalone [...] [facility] Method Time Signature COLONOSCOPY [facility] Endoscopy Procedure Date: 06/25/2022 10:33 AM ? Patient Name: Koko Zamora ? Date of : 1940 ? Age: 81 ? Order #: [id number] ? Instrument Name: [id number]- [id number] ? Procedure: ? Colonoscopy Indications: ? Gastrointestinal bleeding Providers: ? Giovani Ponce, Isi puente, ? Brissa Vee RN, Darrell ? Confalone Referring MD: ?Sam Roberts Medicines: [...] Procedure Code(s): ? --- Professional --- ? 23186, Colonoscopy, flexib le; with ? control of [...] of sigmoid ? colon CPT copyright 2020 [employer]. All rights reserved. The codes documented in this report are preliminary and upon combination window installer review may be revised to meet current [...] At Patholo gist Range Method Time Signature VB Text Department: Vascular Surgery Lab VASCUBASE Report Patient: [id number] (KOKO ZAMORA) CPT: 11208 Referring Physician: FITO SUMMERS ?? Phone: Indications: s/p L PANEL GLUER endart. Diabetes mellitus: no Findings: Right [...] Summers MD VASCULAR ORDERABLES Performing Organization Address [facility] Phon e Number VASCUBASE Specimen to Pathology (06/10/2022 1:20 PM EDT) Specimen Anatomical Collection Method Collection Time Receive d Time (Source) Location / / Volume Laterality AP Specimen 06/10/2022 1:20 PM 2 1:20 EDT PM EDT Narrative [facility] - 06/10/2022 1:20 PM EDT Specimen requisition ordered. ??Separate Pathology report to follow Loretta Cohen MD PATHOLOGY/CYTOLOGY ORDERABLE S Performing Organization Address [facility] [place] [address] Surgical Pathology Report (06/10/2022 11:43 AM EDT) Component Value Ref Test Analysis Performed At [facility] gist Range Method Time Signature Surgical [id number] ? Location: [facility] Report The signing pathologist has (i) [...] Valencia Verified: ??06/12/2022 14:33 ??Dermatopathologist Performed at: ??-[facility] Dept. of Pathology, [place], [place] SPECIMEN(S) SUBMITTED A - right lateral [...] Organization Address City/State/[place] [address] (ABNORMAL) Hemogram (06/02/2022 8:20 AM EDT)Only the most recent of14 results within the time period is included. Analysis Performed At Patho logist Time Signature WBC 7.2 4.0 - 9.5 [facility] x10(3)/[facility] LABORATORY RBC 2.74 (L) 4.58 - [facility] 5.54 [facility] x10(6)/[facility] LABORATORY Hemoglobin 8.7 (L) 13.7 - [facility] 16.5 g/dL [facility] Hematocrit 25.7 (L) 40.5 - [facility] 48.5 % [facility] MCV 93.8 (H) 82.9 - [place] FAY[place] 93.1 [facility] LABORATORY MCH 31.8 27.5 - [place] HAGEN 32.[address] [facility]ORATORY MCHC 33.9 32.0 - [place] 35.7 g/dL [facility] Platelets 260 145 - 357 [facility] x10(3)/[facility] LABORATORY RDWSD 51.0 (H) 36.0 - [place] FAYE 45.0 [facility] LABORATORY RDWCV 14.9 (H) 11.4 - [facility] FAYE 13.8 % [facility] MPV 10.0 7.6 - 12.9 [facility] LABORATORY nRBC % Auto 0.0 % [facility] nRBC Abs Auto 0.000 0.000 - [facility] 0.000 [facility] x10(3)/[facility] LABORATORY Specimen Anatomical Collection Method Collection Time Receive d Time (Source) Location / / Volume Laterality Blood 06/02/2022 8:20 AM 8:25 EDT AM EDT Resulting Agency Comment Spec In Lab Kurt Ames MD HEMATOLOGY ORDERABLES Performing Organization Address City/State/[place] [address] (ABNORMAL) Differential, Automated (06/02/2022 8:20 AM EDT)Only the most recent of14 resultswithin the time period is included. P athologist Signature Neutrophils % 61.3 % [facility] Neutr Abs (ANC) 4.44 1.70 - [place] FAY[place] 6.10 [facility] x10(3)/[facility] LABORATORY Lymphocytes % 25.2 % [facility] Lymphocytes Abs 1.8 0.9 - 3.2 [facility] x10(3)/[facility] LABORATORY Monocytes % 10.0 % [facility] Monocyte Abs 0.7 0.3 - 0.9 [facility] x10(3)/[facility] LABORATORY Eosinophils % 2.1 % [facility] Eosinophils Abs 0.2 0.0 - 0.4 [facility] x10(3)/[facility] LABORATORY Basophils % 0.7 % [facility] Basophils Abs 0.0 0.0 - 0.1 [facility] x10(3)/[facility] LABORATORY Immature Gran % 0.70 [...] Organization Address City/State/[place] [address] Heparin (unfractionated) Level (06/02/2022 6:30 AM EDT)Only the most recent of11 resultswithin the time period is included. P athologist Signature Heparin UFH 0.39 IU/mL [facility] LABORATORY Comment: Heparin (anti-Xa) levels should [...] Victor MD HEMATOLOGY ORDERABLES Performing Organization Address City/[facility]/ZIP Code Phon e Number [address] Magnesium (06/02/2022 12:30 AM EDT)Only the most recent of5 resultswithin the time period is included. athologist Signature Magnesium 0.83 0.69 - 1.07 [facility] mmol/L [facility] Specimen Anatomical Collection Method Collection Time Receive d Time (Source) Location / / Volume Laterality Blood 06/02/2022 12:30 06/02/2022 AM EDT 12:40 AM EDT Resulting Agency Comment Spec In Lab Mahendra Victor MD CHEMISTRY ORDERABLES Performing Organization Address City/[facility]/[place] [address] (ABNORMAL) Basic Metabolic Panel (non-fasting) (06/02/2022 12:30 AM EDT)Only the most recent of6 resultswithin the time period is included. athologist Signature Glucose Lvl 151 65 - 199 [facility] mg/dL [facility] Comment: Diabetes: >=200 mg/dL plus symp toms BUN 12 10 - 20 mg/dL [facility] LABORATORY Creatinine 0.71 (L) 0.80 - 1.50 mg/dL [facility] LABORATORY Sodium 142 135 - [...] Organization Address City/State/[place] [address] SCAN DOC: TELEMETRY STRIPS (06/01/2022 8:37 PM EDT)Only the most recent of8 resultswithin the time period is included. Narrative This result has an attachment that is no t available. Unknown MEDIA MGR SCAN EXT ORDR/RSLT (ABNORMAL) Urinalysis with reflex Culture (06/01/2022 4:00 AM EDT)Only the most recent of2 resultswithin the time period is included. [facility] gist Method Time Signature Glucose UA 500 Negative [facility] (Critical) mg/dL [facility] Comment: Urinalysis result NOT critical [...] [facility] Nitrite UA Negative Negative [facility] Leukocytes UA Negative Negative [facility] LABORATORY Appearance UA Clear Clear [facility] Spec [place] UA >=1.030 (A) 1.005 - 1.030 [facility] LAB[facility]ORY Color UA Yellow Yellow [facility] Culture Reflexed No [facility] Specimen Anatomical Collection Method Collection Time Receive d Time (Source) Location / / Volume Laterality Clean Catch 06/01/2022 4:00 AM 2 4:26 Urine EDT AM EDT Resulting Agency Comment Spec In Lab Mahendra Victor MD URINE ORDERABLES Performing Organization Address City/State/[place] [address] Transfuse RBC (05/31/2022 7:36 PM EDT) Dominique Hinds MD NURSING TREATMENT ORDERABLES - BLOOD ADMIN UPPER GI ENDOSCOPY (05/31/2022 3:37 PM EDT) Component Value Ref Test Analysis Performed At [facility] Range Method Time Signature UPPER GI [facility] ENDOSCOPY Endoscopy Procedure Date: 05/31/2022 3:37 PM ? Patient Name: Koko Zamora ? Date of : 1940 ? Age: 81 ? Order #: [id number] ? Instrument Name: [id number] ? Procedure: ? Upper GI endoscopy Indications: ? Melena, Suspected upper ? gastrointestinal bleeding Providers: ? Torrey Munoz , ? Vani Wei RN, Juhi Maxwell, ? Torres Ovalle MD: ?Dominique GoAlmita Guzman Medicines: ? Propofol per Anesthesia Complications: [...] Procedure Code(s): ? --- Professional --- ? 75817, Esophagogastroduode noscopy, ? flexible, transoral; with control [...] stomach ? and duodenum CPT copyright 2021 [employer]. All rights reserved. The codes documented in this report are preliminary and upon combination window installer review may be revised to meet current [...] questions please contact the health home care physical therapist that requested your imaging first. ? Electronically signed by: Jl walter MD, [facility] ([phone]), at 05/31/2022 2:39 PM Narrative 05/31/2022 2:39 [...] enlarged lymph nodes. Vasculature: Patent common iliac, washer hand al iliac, and common femoral arteries bilaterally. [...] the original. EXAMINATION: CT ABDOMEN AND PELVIS [facility] C ONTRAST (GI BLEED) CLINICAL HISTORY: Significant [...] enlarged lymph nodes. Vasculature: Patent common iliac, washer hand al iliac, and common femoral arteries bilaterally. [...] questions please contact the health home care physical therapist that requested your imaging first. Dominique Hinds MD IMG CT ORDERABLES Type and Screen Validity (05/31/2022 1:43 PM EDT)Only the most recent of2 resultswithin the time period is included. [facility] Method Time Signature T&S only valid [facility] LABORATORY Comment: This Type and Screen result is only valid at the [facility] Hospital Specimen Anatomical Collection Method Collection Time Receive d Time (Source) Location / / Volume Laterality Blood 05/31/2022 1:43 PM 2 1:57 EDT PM EDT Resulting Agency Comment Spec In Lab Dominique Hinds MD BLOOD BANK ORDERABLES Performing Organization Address City/[facility]/[place] [address] ABORH Recheck Status (05/31/2022 1:43 PM EDT)Only the most recent of2 results within the time period is included. [facility] Method Time Signature ABORH Type Completed [facility] LABORATORY Specimen Anatomical Collection Method Collection Time Receive d Time (Source) Location / / Volume Laterality Blood 05/31/2022 1:43 PM 2 1:57 EDT PM EDT Resulting Agency Comment Spec In Lab Dominique Hinds MD BLOOD BANK ORDERABLES Performing Organization Address City/[facility]/[place] [address] ABO/Rh Typing (05/31/2022 1:43 [...] MD BLOOD BANK ORDERABLES Performing Organization Address City/[facility]/[place] [address] Antibody screen (05/31/2022 1:43 PM EDT)Only the most recent of2 resultswithin the time period is included. [facility] Method Time Signature Ab Screen Negative [facility] LABORATORY Expires at 06/03/2022 [facility] [id number] on: [facility] Specimen Anatomical Collection Method Collection Time Receive d Time (Source) Location / / Volume Laterality Blood 05/31/2022 1:43 PM 2 1:57 EDT PM EDT Resulting Agency Comment Spec In Lab Dominique Hinds MD BLOOD BANK ORDERABLES Performing Organization Address City/State/ZIP Code Phon e Number [address] Prepare RBC (05/31/2022 1:35 PM EDT)Only the most recent of2 resultswithin the time period is included. athologist Signature Dispensed? Yes [facility] Specimen Anatomical Collection Method Collection Time Receive d Time (Source) Location / / Volume Laterality Blood 05/31/2022 1:35 PM 2 1:30 EDT PM EDT Dominique Hinds MD BLOOD BANK ORDERABLES Performing Organization Address City/[facility]/[place] [address] (ABNORMAL) BLOOD GAS 2 VENOUS (05/31/2022 11:24 AM EDT) P athologist Signature pH [place] 7.38 7.32 - [facility] [address].42 [facility] LABOR[facility]ORY pCO2 [place] 40 (L) 41 - 51 [facility] LABORATORY pO2 [place] 18 (L) 25 - 40 [facility] LABORATORY HCO3 [place] 23.3 mmol/L [facility] BE Marco Antonio -1.8 mmol/L [facility] Hgb Blood Gas 7.0 (L) 13.7 - [facility] 16.5 g/dL [facility] O2HB [place] 24.3 % [facility] BGas Source Venous [facility]ORY Specimen Anatomical Collection Method Collection Time Receive d Time (Source) Location / / Volume Laterality Blood 05/31/2022 11:24 05/31/2022 AM EDT 11:24 AM EDT Dominique Hinds MD CHEMISTRY ORDERABLES Performing Organization Address City/[facility]/[place] [address] TSH [place] (05/31/2022 11:20 AM EDT) P athologist Signature TSH 1.67 0.27 - 4.20 [facility] mcIU/mL [facility] Comment: Reference Interval (mcIU/mL): Females: ??First Trimester: 0.23-3.88 ??Second Trimester: 0.22-3.90 ??Third Trimester: 0.44-4.66 Specimen Anatomical Collection Method Collection Time Receive d Time (Source) Location / / Volume Laterality Blood 05/31/2022 11:20 05/31/2022 AM EDT 11:28 AM EDT Resulting Agency Comment Spec In Lab Dominique Hinds MD CHEMISTRY ORDERABLES Performing Organization Address City/State/[place] [address] XR Chest PA & [...] questions please contact the health home care physical therapist that requested your imaging first. ? Electronically signed by: Alan strong MD, [facility] ([phone]), at 05/31/2022 11:33 AM Narrative 05/31/2022 11:33 [...] questions please contact the health home care physical therapist that requested your imaging first. Dominique Hinds MD IMG DX ORDERABLES Blue Tube HOLD (05/31/2022 10:50 AM EDT) athologist Signature Blue Hold Sample in [facility] lab. [facility] Specimen Anatomical Collection Method Collection Time Receive d Time (Source) Location / / Volume Laterality Blood Venous Draw / 05/31/2022 10:50 05/31/2022 Unknown AM EDT 11:05 AM EDT Brittany Ramirez MD HEMATOLOGY ORDERABLES Performing Organization Address City/State/[place] [address] Troponin (05/31/2022 10:50 AM EDT) athologist Signature Troponin-T <0.01 0.00 - 0.00 [facility] ng/mL [facility] Comment: The 99th percentile for [...] additional sample may be indicated. Reference: Third [place] Definition of Myocardial Infarction. Journal of the [place] [employer] 2012;60:1581-98 Specimen Anatomical Collection Method Collection Time Receive d Time (Source) Location / / Volume Laterality Blood 05/31/2022 10:50 05/31/2022 AM EDT 11:03 AM EDT Resulting Agency Comment Spec In Lab Dominique Hinds MD CHEMISTRY ORDERABLES Performing Organization Address City/State/ZIP Code Phon e Number [address] Phosphorus (05/31/2022 10:50 AM EDT)Only the most recent of2 resultswithin the time period is included. P athologist Signature Phosphorus 3.2 2.5 - 4.5 [place] FAYE mg/dL [facility] Specimen Anatomical Collection Method Collection Time Receive d Time (Source) Location / / Volume Laterality Blood 05/31/2022 10:50 05/31/2022 AM EDT 11:03 AM EDT Resulting Agency Comment Spec In Lab Dominique Hinds MD CHEMISTRY ORDERABLES Performing Organization Address City/State/ZIP Code Phon e Number [address] (ABNORMAL) pro-Brain Natriuretic Peptide (05/31/2022 10:50 AM EDT) P athologist Signature ProBNP 1,077 (H) <=449 [place]AY[place] pg/mL [facility] Specimen Anatomical Collection Method Collection Time Receive d Time (Source) Location / / Volume Laterality Blood 05/31/2022 10:50 05/31/2022 AM EDT 11:03 AM EDT Resulting Agency Comment Spec In Lab Dominique Hinds MD CHEMISTRY ORDERABLES Performing Organization Address City/State/[place] [address] Lipase (05/31/2022 10:50 AM EDT) P athologist Signature Lipase 41 0 - 60 [place]AY[place] unit/L [facility] Specimen Anatomical Collection Method Collection Time Receive d Time (Source) Location / / Volume Laterality Blood Venous Draw / 05/31/2022 10:50 05/31/2022 Unknown AM EDT 11:11 AM EDT Resulting Agency Comment Spec In Lab Zain Champion MD CHEMISTRY ORDERABLES Performing Organization Address City/[facility]/[place] [address] (ABNORMAL) Hepatic Function Panel (05/31/2022 10:50 AM EDT) Analysis Performed At Patho logist Time Signature Total Protein 6.4 6.1 - 8.0 [place] FAYE g/dL [facility] Albumin 4.1 3.2 - 5.2 [place] g/dL [facility] AST 24 0 - 39 [place] unit/L [facility] ALT 44 0 - 55 [place] unit/L [facility] Alk Phos 63 40 - 130 [place] unit/L [facility] Total <0.2 (L) 0.2 - 1.3 [place] Bilirubin mg/dL [facility] Bili, Direct 0.1 0.0 - 0.3 [place] mg/dL [facility] Specimen Anatomical Collection Method Collection Time Receive d Time (Source) Location / / Volume Laterality Blood Venous Draw / 05/31/2022 10:50 05/31/2022 Unknown AM EDT 11:11 AM EDT Resulting Agency Comment Spec In Lab Zain Champion MD CHEMISTRY ORDERABLES Performing Organization Address City/State/ZIP Code Phon e Number [place] [id number] EKG 12 Lead (05/31/2022 10:11 AM EDT)Only the most recent of3 resultswithin the time period is included. Component Value Ref Range Test Analysis Performed Pathologis t Method Time At Signature Ventricular rate 106 BPM MUSE SYSTEM QRS Duration 122 ms MUSE SYSTEM Q-T Interval 368 ms MUSE SYSTEM QTC Calculated 488 ms MUSE SYSTEM (Bezet) Calculated R Johnson -43 degrees MUSE SYSTEM Calculated T Johnson 109 degrees MUSE SYSTEM INTERPRETATION Atrial fibrillation with rapid ventricular response MUSE SYSTEM Left axis deviation Minimal voltage criteria for LVH, may be normal variant ( [place] product ) Cannot rule out Anterior infarct , age undetermined Abnormal ECG When compared with ECG of 20-MAY-2022 19:04, No significant change was found I personally reviewed the tracing and edited the fellows int erpretation Confirmed by fellow MD Mike, [place] ([id number]) on 022 8:36:21 PM Confirmed by MD [...] Volume Narrative 05/20/2022 7:09 PM EDT ?[facility] ? Cardiac Cathete rization/Intervention Report ? Patient Name: Koko Zamora. ? Procedure Date: 05/20/2022 ? A #: [id number] ? Primary Physician: Abundio Servin ? Case #: [id number] ? File Name: [id number] ? Catheterization Order Number: [id number] ? [facility] ?[employer] [facility] Center ? Final Report [place], [place] ? Patient Name: ? Koko saucedaon ? ID#: ?[id number] ? : ?1940 ? Procedure Date: ? May 20, 2022 ?Case #: ? [id number] ? Room: ? 1 ? Case Physician: [...] was Urgent. The indication for ?the chemical lab supervisor visit is cardiomyo nita. Chest pain [...] ?3.5 guiding catheter and a 3.5 Fr [place] [facility] [address] ??20 Mhz. ??Imaging ?was successful. ??Image [...] premounted 2. 75 x 30 mm Rudy Pinal (AMPARO) was deployed ? with a maximum [...] require ?modification of this regimen. C onsult [facility] Interventional Cardiology for ?questions. [...] might be different from the original. [facility] Cardiac Catheterization/Intervention Re port Patient Name: Koko Zamora Procedure Date: 05/20/2022 A #: [id number] Primary Physician: Abundio Servin Case #: File Name: [id number] Catheterization Order Number: [id number] [facility] Final Report [place], [place] Patient Name: Koko Zamora ID#: [id number] : 1940 Procedure Date: May 20, 2022 [...] designated a s ASA Class IV. The [facility] clinical frailty scale is 3: Managing [...] e was Urgent. The indication for the chemical lab supervisor visit is cardiomyopathy. C hest pain symptom assessment was: Typical Angina. Technique: A 6 SLFr sheath was inserted in the rig radial artery utilizing the Seldinger technique. The [...] 3.5 guiding catheter and a 3.5 Fr [place] [facility] [address] 20 Mhz. Imaging was successful. Image quality was excel lent. The ostial OM1 showed moderate diffuse atherosclerotic plaque . Post Intervention: The stent was well e xpanded and apposed. Indication for Intervention: Coronary intervention was indicated for primary therapy for an acute myocardial infarction. The priority for the procedure was Urgent. The [facility] indication for the procedure was N SILVIA-ACS. [...] atmospheres. A premounted 2.75 x 30 mm Eolia Pinal (AMPARO) was deployed with a maximum inflation [...] require modification of this regimen. Consult D [facility] Interventional Cardiology for questions. The 1 year [...] Signature POC Glucose 123 65 - 199 [facility] mg/dL [facility] Comment: Supplemental ranges: [...] Number [facility] [place] [address] (ABNORMAL) BMP w/fasting Glucose (05/20/2022 10:50 AM EDT) athologist Signature Glucose 152 (H) 65 - 99 [facility] Fasting mg/dL [facility] Comment: ?Fasting* Glucose [...] of Diabetes Mellitus, Position Statement from the [place] [employer]. ??Diabete s Care, Volume 33, Supplement 1, Nov 2009 BUN 11 10 - 20 mg/dL [facility] Creatinine 0.63 (L) 0.80 [...] 15 mmol/L [facility] Calcium 8.7 8.5 - [...] Summers MD CHEMISTRY ORDERABLES Performing Organization Address City/[facility]/[place] [address] TSH (05/18/2022 8:00 PM EDT) athologist Signature TSH 2.27 0.27 - 4.20 [facility] mcIU/mL [facility] Comment: Reference Interval (mcIU/mL): Females: ??First Trimester: 0.23-3.88 ??Second Trimester: 0.22-3.90 ??Third Trimester: 0.44-4.66 Specimen Anatomical Collection Method Collection Time Receive d Time (Source) Location / / Volume Laterality Blood 05/18/2022 8:00 PM 8:06 EDT PM EDT Resulting Agency Comment Spec In Lab Fito Summers MD CHEMISTRY ORDERABLES Performing Organization Address City/[facility]/ZIP [facility] [place] [address] (ABNORMAL) Urinalysis Microscopic Exam [...] Organization Address City/State/[place] [address] XR Chest One View [...] questions please contact the health home care physical therapist that requested your imaging first. ? Narrative [...] questions please contact the health home care physical therapist that requested your imaging first. Electronically signed by: Tiffanie George MD , [facility] ([phone]), at 05/16/2022 9:27 PM Fito Summers MD IMG DX ORDERABLES ECHOCARDIOGRAM COMPLETE W CONTRAST (05/16/2022 12:49 PM EDT) P athologist Signature EF 28 [facility] Anatomical Region Laterality Modality Cardiac Other Specimen (Source) Anatomical Collection Method Collection Time Re ceived Time Location / / Volume Laterality 05/16/2022 11:22 AM EDT Narrative 05/16/2022 1:54 PM EDT ?[facility] ?[address] ? [place] [address] ?Voice: ?Fax: ? Echocardiogram Report Name: NIURKA KOKO J ?Study Date: 05/16/2022 11:22 AM ? Patient Location: [address] [place] [address] : 1940 ? Height: 67.5 in ? Account: [id number] Age: 81 yrs ? Weight: 176 lb Gender: Male ?BSA: 1.9 m2 Ordering Physician: FITO SUMMERS Referring Physician: MALI FLORIAN Performed By: Jolene Bernard RDCS Exam Location: [facility]. Interpretation Summary Left ventricle [...] and LV systolic dysfunction are new. Procedure Complete-[id number]. Image enhancement Optiso n was used for [...] note might [place] [address] Voice: Fax: Echocardiogram Report Name: KOKO ZAMORA Study Date: 05/2022 11:22 AM Patient Location: [address] [place] [address] : 1940 Height: 67.5 in Account: [id number] Age: 81 yrs Weight: 176 lb Gender: Male BSA: 1.9 m2 Ordering Physician: FITO SUMMERS Referring Physician: MALI FLORIAN Performed By: Jolene Bernard RDCS Exam Location: [facility]. Interpretation Summary Left ventricle [...] and LV systolic dysfunction are new. Procedure Complete-[id number]. Image enhancement Optiso n was used for [...] Signature pH Art 7.33 (L) 7.35 - [facility] 7.45 [facility] pCO2 Art 41 35 - 45 [facility]ORATORY pO2 Art 131 (H) 85 - 104 [facility]ORY HCO3 Art 21.1 20.0 - [facility] 26.0 [facility] mmol/[facility] BE Art -4.8 (L) -3.0 - 3.0 [facility] mmol/L [facility] Hgb Blood Gas 13.4 (L) 13.7 - [facility] 16.5 g/dL [facility] O2HB Art 96.9 94.0 - [facility] 97.0 % [facility] COHB Art 1.4 % PROCTOR [...] Torre MD CHEMISTRY ORDERABLES Performing Organization Address City/[facility]/[place] [address] (ABNORMAL) APTT (05/15/2022 12:30 [...] Morales DO HEMATOLOGY ORDERABLES Performing Organization Address City/[facility]/[place] [address] (ABNORMAL) Prothrombin Time (05/15/2022 12:30 PM EDT) P athologist Signature PT 12.9 (H) 9.4 - 12.5 [facility] LABORATORY INR 1.1 [facility] [...] Morales DO HEMATOLOGY ORDERABLES Performing Organization Address City/[facility]/ZIP Code Phon e Number [address] Gold Tube HOLD (05/15/2022 12:20 PM EDT) athologist Signature Gold Hold Sample in [facility]. [facility] Specimen Anatomical Collection Method Collection Time Receive d Time (Source) Location / / Volume Laterality Blood No Charge / 05/15/2022 12:20 05/15/2022 Unknown PM EDT 12:20 PM EDT Lc TRIPP CHEMISTRY ORDERABLES Performing Organization Address City/[facility]/[place] [address] CK (05/15/2022 12:00 PM EDT) athologist Signature CK, Total 87 0 - 200 [facility] unit/L [facility] Specimen Anatomical Collection Method Collection Time Receive d Time (Source) Location / / Volume Laterality Blood Venous Draw / 05/15/2022 12:00 05/15/2022 Unknown PM EDT 12:19 PM EDT Resulting Agency Comment Spec In Lab Fito Summers MD CHEMISTRY ORDERABLES Performing Organization Address City/[facility]/ZIP Code Phon e Number [address] Film Library- Storage Only CT Abdomen (05/15/2022 9:32 AM EDT) Specimen (Source) Anatomical Location Collection Method / Collectio n Time Received Time / Laterality Volume Narrative DH RAD - 05/15/2022 9:32 AM EDT This exam is auto-finalizing. It's purpo se is for storage only. Matt Branham MD IMG FILM LIBRARY ORDERABLES Performing Organization Address City/[facility]/ZIP Code Phon e Number RAD [place], [place] Film Library- Storage Only DX Chest (05/15/2022 9:31 AM EDT) Specimen (Source) Anatomical Location Collection Method / Collectio n Time Received Time / Laterality Volume Narrative RAD - 05/15/2022 9:31 AM EDT This exam is auto-finalizing. It's purpo se is for storage only. Matt Branham MD IMG FILM LIBRARY ORDERABLES Performing Organization Address City/State/ZIP Code Phon e Number INO INO [place], [place] from Last 3 Months Insurance Payer Benefit Plan / Subscriber ID Effective Phone Address T ype Group Dates MEDICARE MEDICARE PART A [id number] 2007-Pres [phone] [facility] [place] [phone] [facility] [id number] 2007-Pres [phone] [address] [facility] ent [address] [place] [address] ([place]outte) [place] [address] Advance Directives Latest Code Status on File [...] capacity to make decision: Yes Care Teams Subcontracts Manager Relationship Specialty Start Date End Date Abby Das MD PCP - General 10/02/10 [facility] [place] [phone]
--- OUTSIDE RECORDS SUMMARY | 2022-08-05 09:00 | XMS_ITS | Encounter Summary ---
:1940 Author Organization [facility] [place] [address] Care Team Providers Name Role Phone Bobby Das MD Primary Care Provider Encounter Details Date Type Department Care Team Description 06/13/2022 Office Visit [facility] [facility] Fito Summers MD Limb ischemia [facility] [place] [address] VASCULAR SURGERY [phone] [place] [address] (Wo rk) Social History Tobacco Use Types [...] repair Overview Note: Surgery done at [facility] in 2000 ??? Hypertriglyceridemia Overview [...] with ABIs. Fito Summers MD Vascular Surgery [facility] Emily Power CMA - 06/13/2022 8:00 AM EDT Handwashing performed, gloves on.As instructed by windy removed on LLE medial and lateral aspect, cleansed after staple remover, steri strips applied. Gloves off, handwashing performed. documented in this encounter Plan of Treatment Upcoming Encounters Date Type Specialty Care Team Description 08/08/2022 TH Visit (TeleHealth) Gastroenterology Dixon Collins MD [facility] GASTROENTEROLOGY DEPT [place], [place] [address] (Wo rk) 09/05/2022 Appointment Cardiology Trinity Reid MD [facility] [address] [place], [place] [address] (Wo rk) 09/05/2022 Office Visit Cardiology Trinity Reid MD [facility] [address] [place], [place] [address] (Wo rk) 10/02/2022 Clinical Support Dermatology Thai Lynn MD [facility] DR JENNY BILLY-DERMAT [place], [place] [address] (Wo rk) 10/02/2022 Procedure visit Dermatology Jace Lynn MD [facility] [address] JENNY BILLY[place]DER[place], [place] [address] (Wo rk) documented as of this encounter Visit Diagnoses Diagnosis Limb ischemia Unspecified circulatory system disorder documented in this encounter Care Teams Toggler Relationship Specialty Start Date End Date Bobby Das MD PCP - General 10/02/[address] [place] [address] [place] [phone] documented as of this encounter
--- OUTSIDE RECORDS SUMMARY | 2022-08-05 09:00 | XMS_ITS | Encounter Summary ---
:1940 Author Organization [facility] [place] [address] Care Team Providers Name Role Phone Abby Das MD Primary Care Provider Reason for Visit Reason Comments Dizziness Auth/Cert Specialty Diagnoses / Procedures Referred By Contact Refer red To Contact Diagnoses GIB (gastrointestinal bleeding) Abe [facility] [place] [address] Referral ID Status Reason Start Date Expiration Date Visits Requ ested Visits Authorized [id number] 1 1 Encounter Details Date Type Department Care Team Description 05/31/2022 - Hospital Encounter Intermediate Special Dixon Hinds MD [facility] Emergency [place] [address] GIB 06/02/2022 [place] [address] (gastrointestinal [facility] [place] [address] bleeding) ([facility] [place] [address] Dx) [place] [address] Social History Tobacco Use Types Packs/Day [...] switching to a different bloodthinner with the chairperson anesthesiology outpatient. Call your doctor or seek medical [...] switchingto a different blood thinner with your chairperson anesthesiology as an outpatient Stopped Medications - Aspirin - Valsartan - Speak with your chairperson anesthesiology about the timing of restarting this Follow-up Appointments Future Appointments Date Time Provider Department Center 06/10/2022 11:00 AM Loretta Cohen MD [facility] 06/13/2022 7:30 AM Edson Lagos [place] [facility] VAS LAB [facility] 06/13/2022 8:00 AM Fito Summers MD [facility] V SURG [facility] 06/13/2022 10:00 AM Alan Reid MD [address] Your Inpatient Medical Team at [facility] Name(s) of your inpatient provider(s): Dr. John Ames For questions regarding issues relating to your hospitalization on the Hospital Medicine Service, please contact your inpatient physician through the [facility] Music Executive [phone]. Issues after hours and on weekends will be handled by the Hospitalist staff on-call. Your Primary Care Provider Abby Das MD [phone] Future Appointments and Orders Future Appointments and Orders Future Appointments Provider Department Dept Phone 06/10/2022 11:00 AM Loretta Cohen MD Dermatology at [facility] Arrive at: Fiberglass Machine [employer] [address] [place] [address] 06/13/2022 7:30 AM Edson [place]os [place] Vascular Lab at [facility] Arrive at: Fiberglass Machine Operator Area [phone] 06/13/2022 8:00 AM Fito Summers MD Vascular Surgery at [facility] Arrive at: [employer] Operator Area [phone] 06/13/2022 10:00 AM Alan Reid MD Cardiology at [facility] Arrive at: Fiberglass Machine Operator Area [phone] For questions regarding this document or issues relating to this hospitalization on the Medical Service, please contact your inpatient physician through the [facility] [employer] . Issues after hours and on weekends [...] switching to a different bloodthinner with the chairperson anesthesiology outpatient. Call your doctor or seek medical [...] switchingto a different blood thinner with your chairperson anesthesiology as an outpatient Stopped Medications - Aspirin - Valsartan - Speak with your chairperson anesthesiology about the timing of restarting this Follow-up Appointments Future Appointments Date Time Provider Department Center 06/10/2022 11:00 AM Loretta Cohen MD [facility] 06/13/2022 7:30 AM Edson [place]os [place] [facility] VAS LAB [facility]OWE[facility] 06/13/2022 8:00 AM Fito Summers MD [facility] V SURG [facility] 06/13/2022 10:00 AM Alan Reid MD [facility] CARD 4A [facility] Your Inpatient Medical Team at [facility] Name(s) of your inpatient provider(s): Dr. John Ames For questions regarding issues relating to your hospitalization on the Hospital Medicine Service, please contact your inpatient physician through the [facility] [employer] [phone]. Issues after hours and on weekends will be handled by the Hospitalist staff on-call. Your Primary Care Provider Abby Das MD [phone] documented in this encounter Medications at Time [...] 04/12/20 21 (FLONASE) 50 mcg/actuation Nare route Loretto, Suspension daily as needed. fluorouraciL (EFUDEX) 5 [...] spent >30 minutes (Day of Discharge Code 32829) involved in the final examination of the [...] were not included. Hospital Medicine Progress Note [place] Team - Pager #[phone] Admit Date: 05/31/2022 Name: Koko Zamora : [...] cardiology to discuss antiplatelet (ISO bleed and prison), following. ?? #CAD s/p stenting recently #HFrEF [...] Ames MD Internal Medicine, PGY-1 Medicine [place] Team #[id number] Associated attestation - John Jolley MD - [...] of two midnights or is on the [facility] inpatient only procedure list (status C) due to: GI Bleeding documented in this encounter H&P Notes Mahendra Victor MD - 05/31/2022 4:33 PM EDT Images from the original note were not included. [facility] Medicine (#[id number]) History and Physical Patient info: Name: Koko Zamora : 1940 PCP: Abby Das MD PCP phone number: [phone] Date of Admission: 05/31/2022 ( Hospital Day [...] IR Biopsy Spine 07/20/2019 Abby Marshall MD [facility] RAD ??? IR VERTEBROPLASTY LUMBAR MULTIPLE LEVELS 07/20/2019 IR Vertebroplasty Lumbar Multiple Levels 07/20/2019 Abby Marshall MD [facility] ??? IR VERTEBROPLASTY THORACIC SINGLE LEVEL 10/25/2020 IR Vertebroplasty Thoracic Single Level 10/25/2020 Matt Chisholm MD [facility] RAD ??? PRO EMBLC/THRMBC FEMORAL POPLITEAL AORTO-ILIAC ARTERY Left 05/15/2022 EMBOLECTOMY OR THROMBECTOMY, FEMOROPOPLITEAL, AORTOILIAC ARTERY BY LEG INCISION (WRVU 19.48) performed by Fito Summers MD at [facility] MAIN OR No family history on file. [...] 11 ??? fluticasone propionate (FLONASE) 50 mcg/actuation Loret[place], Suspension as needed. ??? fluorouraciL (EFUDEX) 5 [...] Gas) No results found for: PHART, PO2ART, OGU9SYC, PDQ4IHY Microbiology: N/A Pertinent radiology/diagnostic studies: Recent prior [...] Valle MD, PGY-3 05/31/2022 Hospital Medicine # [id number] Attending Staff Admission [...] 05/31/2022 3:58 PM EDT Norepinephrine pulled from [facility] for soft BPs. Upon arrival to [...] down while I have been here. Gianni Farncois RN - 05/31/2022 10:50 AM EDT Pt brought to XR by radar engineer Brittany Ramirez MD - 05/31/2022 10:40 AM [...] compartment fasciotomies) with hospitalization complicated by needing [facility] now s/p DESx1, and transient episode of [...] have questions please contact the health career resource technician that requested your imaging first. Chest PA [...] have questions please contact the health career resource technician that requested your imaging first. Course as [...] oncoming ED team awaiting final recommendations from Albino. Brittany Ramirez MD Resident 05/31/22 [id number] Associated attestation - Regina Hinds MD - [...] soft blood pressures, MD made aware. 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 Patient reported blurry/hazy [...] Heparin gtt - plan to bridge to [facility] Discharge planning Increase strength & mobility [...] the original note were not included. [facility] [place] [address] [phone] INPATIENT CARDIOLOGY CONSULT NOTE Date of Consultation: 06/01/2022 Admit Date: 05/31/2022 Place of Service: IS86/IS86-A Referring Attending: REGINA HINDS COLEMAN W FRIEDMAN, HARLEY P Responsible Jackscrew Man: Dr. Rizo Hospital Day 1 day Reason [...] LCX and LCx stent) who presented to [facility] on 05/31/2022 for GI bleed. Patient presented [...] IR Biopsy Spine 07/20/2019 Abby Marshall MD [facility] ??? IR VERTEBROPLASTY LUMBAR MULTIPLE LEVELS 07/20/2019 IR Vertebroplasty Lumbar Multiple Levels 07/20/2019 Abby Marshall MD [facility] ??? IR VERTEBROPLASTY THORACIC SINGLE LEVEL 10/25/2020 IR Vertebroplasty Thoracic Single Level 10/25/2020 Matt Chisholm MD [facility] ??? PRO EMBLC/THRMBC FEMORAL POPLITEAL AORTO-ILIAC ARTERY Left 05/15/2022 EMBOLECTOMY OR THROMBECTOMY, FEMOROPOPLITEAL, AORTOILIAC ARTERY BY LEG INCISION (WRVU 19.48) performed by Fito Summers MD at [facility] MAIN OR ALLERGIES: Allergies Allergen Reactions ??? [...] time ??? fluticasone propionate (FLONASE) 50 mcg/actuation Loret[place], Suspension 1 spray by Each Nare route [...] 3.5 guiding catheter and a 3.5 Fr [facility] [place] 20 Mhz. Imaging was successful. Image [...] A premounted 2.75 x 30 mm Rudy [place] (AMPARO) was deployed with a maximum inflation [...] may require modification of this regimen. Consult [facility] Interventional Cardiology for questions. The 1 year [...] Hb drop. Unknown source. has had a [facility] with stent placed and revascularization [...] have questions please contact the health career resource technician that requested your imaging first. [employer] 48 [...] have questions please contact the health career resource technician that requested your imaging first. Recent Labs [...] on xarelto, ischemic systolic heart failure (recent [facility] 05/20/2022 with 2V disease OM1 and distal RCA, had ostial LCX and LCx stent), recent admission for acutelimb ischemia LLE, where he had left common femoral transverse arteriotomy and primary repair, thromboembolectomy of the SFA, profunda and common femoral artery with 4 compartment fasciotomies, who presented to [facility] on 05/31/2022 for GI bleed. Cardiology consulted [...] attestation for additional insight. Rossy Anaya MD [facility] Weapons Mechanic, PGY-5 Inpatient Cardiology Consults Pager #[phone] Please check Qgenda for on-call cardiology consults [...] A&Ox 4. On room air. VSS. LBM: LADLE PATCHER. Adequate urine output, urinal at bedside, flomax [...] days) Any patient receiving care in [place] must abide by [place] law. The hierarchy [...] - rolling Home Address confirmed as: [address] [place] [phone] Social & Family Supports: All names listed below confirmed with patient as current and correct Extended Emergency Contact Information Primary Emergency Contact: Ursula Zamora Address: [address] [place] [id number] [facility] Relation: Spouse Current Care Provided by: [...] Type: *No Product type* / Secondary Insurance: [facility] Secondary Insurance? (Only Medicare A&B): Yes ; Prescription Coverage: Yes Preferred Pharmacy: [id number] - [facility], [place] - [address] [facility] [address] [facility] [address] Status: Patient is a : No Primary Care Provider: Abby Das MD [phone] Patient/Caregiver Goals of Treatment: Patient plans to [...] with transition of care planning. ASH [place] Agriculture Technician [facility] Medicine/ Medical Specialties Pager- [phone] Plan of [...] Operative Note Patient Name: Koko Zamora : [id number] MR#: [id number] Case Date: 05/31/2022 Surgeon: Surgeon(s) and Role: [...] stomach. He has had colonoscopies before in [place] - notes first ever he had 6 polyps removed but last colo 5 yrs ago was normal. He lives in [facility]. Currently light-headedness is improved. No [...] IR Biopsy Spine 07/20/2019 Abby Marshall MD [facility] ??? IR VERTEBROPLASTY LUMBAR MULTIPLE LEVELS 07/20/2019 IR Vertebroplasty Lumbar Multiple Levels 07/20/2019 Abby Marshall MD [facility] ??? IR VERTEBROPLASTY THORACIC SINGLE LEVEL 10/25/2020 IR Vertebroplasty Thoracic Single Level 10/25/2020 Matt Chisholm MD [facility] ??? PRO EMBLC/THRMBC FEMORAL POPLITEAL AORTO-ILIAC ARTERY Left 05/15/2022 EMBOLECTOMY OR THROMBECTOMY, FEMOROPOPLITEAL, AORTOILIAC ARTERY BY LEG INCISION (WRVU 19.48) performed by Fito Summers MD at [facility] MA[facility] OR SOCIAL HX: Social History Socioeconomic [...] sounds, tympanic to percussion RECTAL: performed with chain maker machine present, no overt masses, fissures, external hemorrhoids, [...] have questions please contact the health career resource technician that requested your imaging first. Abdomen & [...] TH Visit (TeleHealth) Gastroenterology Dixon Collins MD [facility] GASTROENTEROLOGY DEPT [place], [place] [address] (Wo rk) 09/05/2022 Appointment Cardiology Trinity Reid MD [facility] CARDIOLOGY [place], [place] [address] (Wo rk) 09/05/2022 Office Visit Cardiology Trinity Reid MD [facility] CARDIOLOGY [place], [place] [address] (Wo rk) 10/02/2022 Clinical Support Dermatology Thai Lynn MD [facility] DR JENNY BILLY-DERMAT [place], [place] [address] (Wo rk) 10/02/2022 Procedure visit Dermatology Jace Lynn MD [facility] DR JENNY BILLY[place]DERMAT [place], [place] [address] (Wo rk) documented as of [...] P athologist Signature Neutrophils % 61.3 % [facility] LABORATORY Neutr Abs (ANC) 4.44 1.70 - [facility] 6.10 [facility] x10(3)/[facility] LABORATORY Lymphocytes % 25.2 % [facility] LABORATORY Lymphocytes Abs 1.8 0.9 - 3.2 [facility] x10(3)/[facility] LABORATORY Monocytes % 10.0 % [facility] LABORATORY Monocyte Abs 0.7 0.3 - 0.9 [facility] x10(3)/[facility] LABORATORY Eosinophils % 2.1 % [facility] LABORATORY Eosinophils Abs 0.2 0.0 - 0.4 [facility] x10(3)/[facility] LABORATORY Basophils % 0.7 % [facility] LABORATORY Basophils Abs 0.0 0.0 - 0.1 [facility] x10(3)/[facility] LABORATORY Immature Gran % 0.70 % [...] 0.00 - 0.04 x10(3)/[facility] LABORATORY Specimen Anatomical Collection Method Collection Time Receive d Time (Source) Location / / Volume Laterality Blood 06/02/2022 8:20 AM 8:25 EDT AM EDT Resulting Agency Comment Spec In Lab Kurt Ames MD HEMATOLOGY ORDERABLES Performing Organization Address City/State/ZIP Code Phon e Number [place] [id number] (ABNORMAL) Hemogram (06/02/2022 8:20 AM EDT) Analysis Performed At Patho logist Time Signature WBC 7.2 4.0 - 9.5 [facility] x10(3)/[facility] LABORATORY RBC 2.74 (L) 4.58 - [facility] 5.54 [facility] x10(6)/[facility] LABORATORY Hemoglobin 8.7 (L) 13.7 - [facility] 16.5 g/dL [facility] LABORATORY Hematocrit 25.7 (L) 40.5 - [facility] 48.5 % [facility] LABORATORY MCV 93.8 (H) 82.9 - [facility] [address] [facility] LABORATORY MCH 31.8 27.5 - [facility] XIAO 32.1 pg [facility] LABORATORY MCHC 33.9 32.0 - [facility] 35.7 g/dL [facility] LABORATORY Platelets 260 145 - 357 [facility] x10(3)/[facility] LABORATORY RDWSD 51.0 (H) 36.0 - [facility] 45.[address] [facility] LABORATORY RDWCV 14.9 (H) 11.4 - [facility] XIAO 13.8 % [facility] LABORATORY MPV 10.0 7.6 - 12.9 [facility] LABORATORY nRBC % Auto 0.0 % [facility] LABORATORY nRBC Abs Auto 0.000 0.000 - [facility] HAGEN 0.000 [facility] x10(3)/[facility] LABORATORY Specimen Anatomical Collection Method Collection Time Receive d Time (Source) Location / / Volume Laterality Blood 06/02/2022 8:20 AM 2 8:25 EDT AM EDT Resulting Agency Comment Spec In Lab Kurt Ames MD HEMATOLOGY ORDERABLES Performing Organization Address City/[facility]/ZIP Code Phon e Number [place] [phone] [facility] [address] Drive Heparin (unfractionated) Level (06/02/2022 6:30 AM EDT) athologist Signature Heparin UFH 0.39 IU/mL [facility] [...] Organization Address City/State/ZIP Code [place] [address] Heparin (unfractionated) Level (06/02/2022 12:30 AM EDT) P athologist Signature Heparin UFH 0.81 IU/mL [facility] LABORATORY Comment: [...] Organization Address City/[facility]/ZIP Code Phon e Number [address] Magnesium (06/02/2022 12:30 AM EDT) athologist Signature Magnesium 0.83 0.69 - 1.07 [facility] mmol/L [facility] LABORATORY Specimen Anatomical Collection Method Collection Time Receive d Time (Source) Location / / Volume Laterality Blood 06/02/2022 12:30 06/02/2022 AM EDT 12:40 AM EDT Resulting Agency Comment Spec In Lab Mahendra Victor MD CHEMISTRY ORDERABLES Performing Organization Address City/[facility] [place] [address] (ABNORMAL) Basic Metabolic Panel (non-fasting) (06/02/2022 12:30 AM EDT) athologist Signature Glucose Lvl 151 65 - 199 [facility] mg/dL [facility] LABORATORY Comment: Diabetes: >=200 mg/dL plus symp toms BUN 12 10 - 20 mg/dL [facility] LABORATORY Creatinine 0.71 (L) 0.80 - 1.50 mg/dL [facility] LABORATORY Sodium 142 135 - 145 [...] Organization Address City/State/ZIP Code [place] [address] (ABNORMAL) Differential, Automated (06/01/2022 7:29 PM EDT) P athologist Signature Neutrophils % 68.8 % [facility] LABORATORY Neutr Abs (ANC) 5.34 1.70 - [facility] 6.10 [facility] x10(3)/[facility] LABORATORY Lymphocytes % 19.6 % [facility] LABORATORY Lymphocytes Abs 1.5 0.9 - 3.2 [facility] x10(3)/[facility] LABORATORY Monocytes % 8.1 % [facility] LABORATORY Monocyte Abs 0.6 0.3 - 0.9 [facility] x10(3)/[facility] LABORATORY Eosinophils % 1.8 % [facility] LABORATORY Eosinophils Abs 0.1 0.0 - 0.4 [facility] x10(3)/[facility] LABORATORY Basophils % 0.8 % [facility] LABORATORY Basophils Abs 0.1 0.0 - 0.1 [facility] x10(3)/[facility] LABORATORY Immature Gran % 0.90 % [facility] LABORATORY Comment: [...] 0.00 - 0.04 x10(3)/[facility] LABORATORY Specimen Anatomical Collection Method Collection Time Receive d Time (Source) Location / / Volume Laterality Blood 06/01/2022 7:29 PM 7:29 EDT PM EDT Resulting Agency Comment Spec In Lab Kurt Ames MD HEMATOLOGY ORDERABLES Performing Organization Address City/State/ZIP Code [place] [address] (ABNORMAL) Hemogram (06/01/2022 7:29 PM EDT) Analysis Performed At Patho logist Time Signature WBC 7.8 4.0 - 9.5 [facility] x10(3)/[facility] LABORATORY RBC 2.65 (L) 4.58 - [facility] 5.54 [facility] x10(6)/[facility] LABORATORY Hemoglobin 8.3 (L) 13.7 - [facility] 16.5 g/dL [facility] LABORATORY Hematocrit 24.8 (L) 40.5 - [facility] 48.5 % [facility] LABORATORY MCV 93.6 (H) 82.9 - [facility] [address] [facility] LABORATORY MCH 31.3 27.5 - [facility] POWE[place] 32.1 pg [facility] LABORATORY MCHC 33.5 32.0 - [facility] [place]OW[place] 35.7 g/dL [facility] LABORATORY Platelets 263 145 - 357 [facility] [place] x10(3)/[facility] LABORATORY RDWSD 52.8 (H) 36.0 - [facility] [place] 45.[address] [facility] LABORATORY RDWCV 15.4 (H) 11.4 - [facility] [place] 13.8 % [facility] LABORATORY MPV 10.4 7.6 - 12.9 [facility] nRBC % Auto 0.0 % [facility] nRBC Abs Auto 0.000 0.000 - [facility] HAGEN 0.000 [facility] x10(3)/[facility] LABORATORY Specimen Anatomical Collection Method Collection Time Receive d Time (Source) Location / / Volume Laterality Blood 06/01/2022 7:29 PM 7:29 EDT PM EDT Resulting Agency Comment Spec In Lab Kurt Ames MD HEMATOLOGY ORDERABLES Performing Organization Address City/State/ZIP Code [place] [address] Heparin (unfractionated) Level (06/01/2022 7:29 PM EDT) P athologist Signature Heparin UFH 0.81 IU/mL [facility] LABORATORY Comment: [...] Organization Address City/[facility] Code Phon e Number [address] (ABNORMAL) Heparin (unfractionated) Level (06/01/2022 11:32 AM EDT) [facility] Method Time Signature Heparin UFH 1.05 IU/mL [facility] (Critical) [facility] LABORATORY Comment: Critical Result called by [...] Organization Address City/[facility]/ZIP [place] [address] (ABNORMAL) Differential, Automated (06/01/2022 5:56 AM EDT) [facility] Method Time Signature Neutrophils % 62.7 % [facility] LABORATORY Neutr Abs (ANC) 6.11 (H) 1.70 - [facility] 6.10 [facility] x10(3)/[facility] LABORATORY Lymphocytes % 23.5 % [facility] LABORATORY Lymphocytes Abs 2.3 0.9 - 3.2 [facility] x10(3)/[facility] LABORATORY Monocytes % 10.0 % [facility] LABORATORY Monocyte Abs 1.0 (H) 0.3 - 0.9 [facility] x10(3)/[facility] LABORATORY Eosinophils % 2.2 % [facility] LABORATORY Eosinophils Abs 0.2 0.0 - 0.4 [facility] x10(3)/[facility] LABORATORY Basophils % 0.9 % [facility] LABORATORY Basophils Abs 0.1 0.0 - 0.1 [facility] x10(3)/[facility] LABORATORY Immature Gran % [...] 0.00 - 0.04 x10(3)/[facility] LABORATORY Specimen Anatomical Collection Method Collection Time Receive d Time (Source) Location / / Volume Laterality Blood 06/01/2022 5:56 AM 6:05 EDT AM EDT Resulting Agency Comment Spec In Lab Arpita Valle MD HEMATOLOGY ORDERABLES Performing Organization Address City/State/ZIP Code [place] [address] (ABNORMAL) Hemogram (06/01/2022 5:56 AM EDT) Analysis Performed At Patho logist Time Signature WBC 9.7 (H) 4.0 - 9.5 [facility] x10(3)/[facility] LABORATORY RBC 2.83 (L) 4.58 - [facility] 5.54 [facility] x10(6)/[facility] LABORATORY Hemoglobin 9.0 (L) 13.7 - [facility] 16.5 g/dL [facility] LABORATORY Hematocrit 26.7 (L) 40.5 - [facility] 48.5 % [facility] LABORATORY MCV 94.3 (H) 82.9 - [facility] [address] [facility] LABORATORY MCH 31.8 27.5 - [place] 32.1 pg [facility] LABORATORY MCHC 33.7 32.0 - [facility] XIAO 35.7 g/dL [facility] LABORATORY Platelets 250 145 - 357 [facility] x10(3)/[facility] LABORATORY RDWSD 54.3 (H) 36.0 - [facility] 45.[address] [facility] LABORATORY RDWCV 15.9 (H) 11.4 - [facility] 13.8 % [facility] LABORATORY MPV 10.5 7.6 - 12.9 [facility] LABORATORY nRBC % Auto 0.0 % [facility] LABORATORY nRBC Abs Auto 0.000 0.000 - [facility] 0.000 [facility] x10(3)/[facility] LABORATORY Specimen Anatomical Collection Method Collection Time Receive d Time (Source) Location / / Volume Laterality Blood 06/01/2022 5:56 AM 6:05 EDT AM EDT Resulting Agency Comment Spec In Lab Arpita Valle MD HEMATOLOGY ORDERABLES Performing Organization Address City/State/ZIP Code [place] [address] Heparin (unfractionated) Level (06/01/2022 4:30 AM EDT) P athologist Signature Heparin UFH 0.68 IU/mL [facility] LABORATORY Comment: [...] Organization Address City/State/ZIP Code [place] [address] (ABNORMAL) Urinalysis with reflex Culture (06/01/2022 4:00 AM EDT) [facility] Method Time Signature Glucose UA 500 Negative [facility] (Critical) mg/dL [facility] LABORATORY Comment: Urinalysis result NOT critical [...] clinically indicated. Urobilinogen UA Normal Normal mg/dL [facility] LABORATORY pH UA 6.0 5.0 - 8.0 [facility] LABORATORY Blood UA Negative Negative mg/dL [facility] LABORATORY Ketones UA Negative Negative mg/dL [facility] LABORATORY Nitrite UA Negative Negative [facility] LABORATORY Leukocytes UA Negative Negative [facility] LABORATORY Appearance UA Clear Clear [facility] LABORATORY Spec [place] UA >=1.030 (A) 1.005 - 1.030 [facility] LABORATORY Color UA Yellow Yellow [facility] LABORATORY Culture Reflexed No [facility] LABORATORY Specimen Anatomical Collection Method Collection Time Receive d Time (Source) Location / / Volume Laterality Clean Catch 06/01/2022 4:00 AM 2 4:26 Urine EDT AM EDT Resulting Agency Comment Spec In Lab Mahendra Victor MD URINE ORDERABLES Performing Organization Address City/[facility]/ZIP Code Phon e Number [address] Magnesium (06/01/2022 1:00 AM EDT) athologist Signature Magnesium 0.93 0.69 - 1.07 [facility] mmol/L [facility] LABORATORY Specimen Anatomical Collection Method Collection Time Receive d Time (Source) Location / / Volume Laterality Blood 06/01/2022 1:00 AM 2 1:37 EDT AM EDT Resulting Agency Comment Spec In Lab Mahendra Victor MD CHEMISTRY ORDERABLES Performing Organization Address City/[facility] Phon e Number [address] (ABNORMAL) Basic Metabolic Panel (non-fasting) (06/01/2022 1:00 AM EDT) athologist Signature Glucose Lvl 148 65 - 199 [facility] mg/dL [facility] LABORATORY Comment: Diabetes: >=200 mg/dL plus symp toms BUN 23 (H) 10 - 20 mg/dL [facility] LABORATORY Creatinine 0.78 (L) 0.80 - 1.50 mg/dL [facility] LABORATORY Sodium 141 135 - 145 [...] [facility] LABORATORY Anion Gap 9 5 - 15 mmol/L [facility] LABORATORY Calcium 8.6 8.5 - 10.5 mg/dL [facility] LABORATORY Estimated GFR 91 >=60 mL/min/1.73 m?? [facility] [...] Organization Address City/State/ZIP Code Phon e Number [place] [id number] HOSPITAL LABORATORY Drive (ABNORMAL) Differential, Automated (06/01/2022 12:00 AM EDT) P athologist Signature Neutrophils % 64.6 % [facility] LABORATORY Neutr Abs (ANC) 5.60 1.70 - [facility] 6.10 [facility] x10(3)/[facility] LABORATORY Lymphocytes % 22.4 % [facility] LABORATORY Lymphocytes Abs 1.9 0.9 - 3.2 [facility] x10(3)/[facility] LABORATORY Monocytes % 9.5 % [facility] LABORATORY Monocyte Abs 0.8 0.3 - 0.9 [facility] x10(3)/[facility] LABORATORY Eosinophils % 2.1 % [facility] LABORATORY Eosinophils Abs 0.2 0.0 - 0.4 [facility] x10(3)/[facility] LABORATORY Basophils % 0.6 % [facility] LABORATORY Basophils Abs 0.0 0.0 - 0.1 [facility] x[facility](3)/[facility] LABORATORY Immature Gran % 0.80 % [facility] LABORATORY Comment: [...] 0.00 - 0.04 x10(3)/[facility] LABORATORY Specimen (Source) Anatomical Collection Method Collection Time Re ceived Time Location / / Volume Laterality Blood 06/01/2022 06/01/2022 12:1 0 AM EDT Resulting Agency Comment Spec In Lab Arpita Valle MD HEMATOLOGY ORDERABLES Performing Organization Address City/State/ZIP Code [place] [address] (ABNORMAL) Hemogram (06/01/2022 12:00 AM EDT) Analysis Performed At Patho logist Time Signature WBC 8.7 4.0 - 9.5 [facility] x10(3)/[facility] LABORATORY RBC 2.77 (L) 4.58 - [facility] 5.54 [facility] x10(6)/[facility] LABORATORY Hemoglobin 8.6 (L) 13.7 - [facility] 16.5 g/dL [facility] LABORATORY Hematocrit 25.7 (L) 40.5 - [facility] XIAO 48.5 % [facility] LABORATORY MCV 92.8 82.9 - [facility] [address] [facility] LABORATORY MCH 31.0 27.5 - [place] 32.1 pg [facility] LABORATORY MCHC 33.5 32.0 - [facility] 35.7 g/dL [facility] LABORATORY Platelets 260 145 - 357 [facility] x10(3)/[facility] LABORATORY RDWSD 51.9 (H) 36.0 - [place] [place] 45.[address] [facility] LABORATORY RDWCV 15.5 (H) 11.4 - [facility] XIAO 13.8 % [facility] LABORATORY MPV 10.4 7.6 - 12.9 [facility] LABORATORY nRBC % Auto 0.0 % [facility] LABORATORY nRBC Abs Auto 0.000 0.000 - [facility] 0.000 [facility] x10(3)[facility] LABORATORY Specimen (Source) Anatomical Collection Method Collection Time Re ceived Time Location / / Volume Laterality Blood 06/01/2022 06/01/2022 12:1 0 AM EDT Resulting Agency Comment Spec In Lab Arpita Valle MD HEMATOLOGY ORDERABLES Performing Organization Address City/State/ZIP Code [place] [address] (ABNORMAL) Differential, Automated (05/31/2022 9:17 PM EDT) P athologist Signature Neutrophils % 59.6 % [facility] LABORATORY Neutr Abs (ANC) 3.98 1.70 - [facility] 6.10 [facility] x10(3)[facility] LABORATORY Lymphocytes % 27.5 % [facility] LABORATORY Lymphocytes Abs 1.8 0.9 - 3.2 [facility] x10(3)[facility] LABORATORY Monocytes % 9.1 % [facility] LABORATORY Monocyte Abs 0.6 0.3 - 0.9 [facility] x10(3)[facility] LABORATORY Eosinophils % 2.4 % [facility] LABORATORY Eosinophils Abs 0.2 0.0 - 0.4 [facility] x10(3)[facility] LABORATORY Basophils % 0.7 % [facility] LABORATORY Basophils Abs 0.0 0.0 - 0.1 [facility] x10(3)[facility] LABORATORY Immature Gran % 0.70 [...] 0.00 - 0.04 x10(3)/[facility] LABORATORY Specimen Anatomical Collection Method Collection Time Receive d Time (Source) Location / / Volume Laterality Blood 05/31/2022 9:17 PM 2 9:25 EDT PM EDT Resulting Agency Comment Spec In Lab Arpita Valle MD HEMATOLOGY ORDERABLES Performing Organization Address City/State/ZIP Code [place] [address] (ABNORMAL) Hemogram (05/31/2022 9:17 PM EDT) Analysis Performed At Patho logist Time Signature WBC 6.7 4.0 - 9.5 [facility] x10(3)/[facility] LABORATORY RBC 2.74 (L) 4.58 - [facility] 5.54 [facility] x10(6)/[facility] LABORATORY Hemoglobin 8.5 (L) 13.7 - [facility] 16.5 g/dL [facility] LABORATORY Hematocrit 25.7 (L) 40.5 - [facility] 48.5 % [facility] LABORATORY MCV 93.8 (H) 82.9 - [facility] [address] [facility] LABORATORY MCH 31.0 27.5 - [facility] 32.1 pg [facility] LABORATORY MCHC 33.1 32.0 - [facility] 35.7 g/dL [facility] LABORATORY Platelets 233 145 - 357 [facility] x10(3)/[facility] LABORATORY RDWSD 51.9 (H) 36.0 - [facility] XIAO 45.[address] [facility] LABORATORY RDWCV 15.3 (H) 11.4 - [facility] XIAO 13.8 % [facility] LABORATORY MPV 10.3 7.6 - 12.9 [facility] LABORATORY nRBC % Auto 0.0 % [facility] LABORATORY nRBC Abs Auto 0.000 0.000 - [facility] XIAO 0.000 [facility] x10(3)/[facility] LABORATORY Specimen Anatomical Collection Method Collection Time Receive d Time (Source) Location / / Volume Laterality Blood 05/31/2022 9:17 PM 2 9:25 EDT PM EDT Resulting Agency Comment Spec In Lab Arpita Valle MD HEMATOLOGY ORDERABLES Performing Organization Address City/State/ZIP [place] [address] Transfuse RBC (05/31/2022 7:36 PM EDT) Regina Hinds MD NURSING TREATMENT ORDERABLES - BLOOD ADMIN Transfuse RBC (05/31/2022 7:36 PM EDT) Regina Hinds MD NURSING TREATMENT ORDERABLES - BLOOD ADMIN UPPER GI ENDOSCOPY (05/31/2022 3:37 PM EDT) Component Value Ref Test Analysis Performed At [facility] Range Method Time Signature UPPER GI [facility] PROVATION ENDOSCOPY Endoscopy Procedure Date: 05/31/2022 3:37 PM ? Patient Name: Koko Zamora ? Date of : 1940 ? Age: 81 ? Order #: [id number] ? Instrument Name: [id number] ? Procedure: ? Upper GI endoscopy Indications: [...] Procedure Code(s): ? --- Professional --- ? 63884, Esophagogastroduode noscopy, ? flexible, transoral; with control [...] stomach ? and duodenum CPT copyright 2020 [employer]. All rights reserved. The codes documented in this report are preliminary and upon weight shifter review may be revised to meet current [...] have questions please contact the health career resource technician that requested your imaging first. ? [...] enlarged lymph nodes. Vasculature: Patent common iliac, furniture crater al iliac, and common femoral arteries bilaterally. [...] EXAMINATION: CT ABDOMEN AND PELVIS WWO C RACHAELRAST (GI BLEED) CLINICAL HISTORY: Significant Hb drop. [...] enlarged lymph nodes. Vasculature: Patent common iliac, furniture crater al iliac, and common femoral arteries bilaterally. [...] have questions please contact the health career resource technician that requested your imaging first. Regina Hinds MD IMG CT ORDERABLES Type and Screen Validity (05/31/2022 1:43 PM EDT) [facility] Method Time Signature T&S only valid [facility] LABORATORY Comment: This Type and Screen result is only valid at the [facility] Specimen Anatomical Collection Method Collection Time Receive d Time (Source) Location / / Volume Laterality Blood 05/31/2022 1:43 PM 2 1:57 EDT PM EDT Resulting Agency Comment Spec In Lab Regina Hinds MD BLOOD BANK ORDERABLES Performing Organization Address City/[facility]/ZIP [place] [address] ABORH Recheck Status (05/31/2022 1:43 PM EDT) [facility] Method [place] Signature ABORH Type Completed [facility] LABORATORY Specimen Anatomical Collection Method Collection Time Receive d Time (Source) Location / / Volume Laterality Blood 05/31/2022 1:43 PM 2 1:57 EDT PM EDT Resulting Agency Comment Spec In Lab Regina Hinds MD BLOOD BANK ORDERABLES Performing Organization Address City/[facility]/ZIP [place] [address] Antibody screen (05/31/2022 1:43 PM EDT) Patholo gist Method Time Signature Ab Screen Negative [facility] LABORATORY Expires at 06/03/2022 [facility] [id number] on: [facility] LABORATORY Specimen Anatomical Collection Method Collection Time Receive d Time (Source) Location / / Volume Laterality Blood 05/31/2022 1:43 PM 2 1:57 EDT PM EDT Resulting Agency Comment Spec In Lab Regina Hinds MD BLOOD BANK ORDERABLES Performing Organization Address City/[facility]/ZIP [place] [address] ABO/Rh Typing (05/31/2022 1:43 [...] Organization Address City/[facility]/ZIP [place] [address] Prepare RBC (05/31/2022 1:35 PM EDT) P athologist Signature Dispensed? Yes [facility] LABORATORY Specimen Anatomical Collection Method Collection Time Receive d Time (Source) Location / / Volume Laterality Blood 05/31/2022 1:35 PM 2 1:30 EDT PM EDT Regina Hinds MD BLOOD BANK ORDERABLES Performing Organization Address City/State/ZIP [place] [address] Prepare RBC (05/31/2022 1:25 PM EDT) P athologist Signature Dispensed? Yes [facility] LABORATORY Specimen Anatomical Collection Method Collection Time Receive d Time (Source) Location / / Volume Laterality Blood 05/31/2022 1:25 PM 2 1:23 EDT PM EDT Regina Hinds MD BLOOD BANK ORDERABLES Performing Organization Address City/State/ZIP Code [place] [address] (ABNORMAL) Differential, Automated (05/31/2022 12:44 PM EDT) athologist Signature Neutrophils % 62.0 % [facility] LABORATORY Neutr Abs (ANC) 4.71 1.70 - [facility] 6.10 [facility] x10(3)/[facility] LABORATORY Lymphocytes % 24.1 % [facility] LABORATORY Lymphocytes Abs 1.8 0.9 - 3.2 [facility] x10(3)/[facility] LABORATORY Monocytes % 10.8 % [facility] LABORATORY Monocyte Abs 0.8 0.3 - 0.9 [facility] x10(3)/[facility] LABORATORY Eosinophils % 1.6 % [facility] LABORATORY Eosinophils Abs 0.1 0.0 - 0.4 [facility] x10(3)/[facility] LABORATORY Basophils % 0.7 % [facility] LABORATORY Basophils Abs 0.0 0.0 - 0.1 [facility] x10(3)/[facility] LABORATORY Immature Gran % 0.80 % [facility] LABORATORY Comment: [...] 0.00 - 0.04 x10(3)/[facility] LABORATORY Specimen Anatomical Collection Method Collection Time Receive d Time (Source) Location / / Volume Laterality Blood 05/31/2022 12:44 05/31/2022 PM EDT 12:57 PM EDT Resulting Agency Comment Spec In Lab Brittany Ramirez MD HEMATOLOGY ORDERABLES Performing Organization Address City/State/ZIP Code [place] [address] (ABNORMAL) Hemogram (05/31/2022 12:44 PM EDT) Analysis Performed At Patho logist Time Signature WBC 7.6 4.0 - 9.5 [facility] x10(3)/[facility] LABORATORY RBC 2.11 (L) 4.58 - [facility] 5.54 [facility] x10(6)/[facility] LABORATORY Hemoglobin 6.9 (L) 13.7 - [facility] 16.5 g/dL [facility] LABORATORY Hematocrit 20.8 (L) 40.5 - [facility] 48.5 % [facility] LABORATORY MCV 98.6 (H) 82.9 - [facility] 93.[address] [facility] LABORATORY MCH 32.7 (H) 27.5 - [facility] 32.1 pg [facility] LABORATORY MCHC 33.2 32.0 - [facility] 35.7 g/dL [facility] LABORATORY Platelets 255 145 - 357 [facility] x10(3)/[facility] LABORATORY RDWSD 47.7 (H) 36.0 - [facility] 45.[address] [facility] LABORATORY RDWCV 13.4 11.4 - [facility] 13.8 % [facility] LABORATORY MPV 10.7 7.6 - 12.9 [facility] LABORATORY nRBC % Auto 0.0 % [facility] LABORATORY nRBC Abs Auto 0.000 0.000 - [facility] 0.000 [facility] x10(3)/[facility] LABORATORY Specimen Anatomical Collection Method Collection Time Receive d Time (Source) Location / / Volume Laterality Blood 05/31/2022 12:44 05/31/2022 PM EDT 12:57 PM EDT Resulting Agency Comment Spec In Lab Brittany Ramirez MD HEMATOLOGY ORDERABLES Performing Organization Address City/State/ZIP Code [place] [address] (ABNORMAL) BLOOD GAS 2 VENOUS (05/31/2022 11:24 AM EDT) P athologist Signature pH [place] 7.38 7.32 - [facility] 7.42 [facility] LABORATORY pCO2 [place] 40 (L) 41 - 51 [facility] LABORATORY pO2 [place] 18 (L) 25 - 40 [facility] LABORATORY HCO3 [place] 23.3 mmol/L [facility] LABORATORY BE [place] -1.8 mmol/L [facility] LABORATORY Hgb Blood Gas 7.0 (L) 13.7 - [facility] 16.5 g/dL [facility] LABORATORY O2HB [place] 24.3 % [facility] [...] Bld 204 (H) 65 - 199 mg/dL [facility] LABORATORY Comment: Diabetes: >=200 mg/dL plus symp toms Lactate WB 1.4 0.5 - 2.2 mmol/L [facility] LABORATORY BGas Source Venous [facility] LABORATORY Specimen Anatomical Collection Method Collection Time Receive d Time (Source) Location / / Volume Laterality Blood 05/31/2022 11:24 05/31/2022 AM EDT 11:24 AM EDT Regina Hinds MD CHEMISTRY ORDERABLES Performing Organization Address City/State/ZIP Code [place] [address] TSH [place] (05/31/2022 11:20 AM EDT) P athologist Signature TSH 1.67 0.27 - 4.20 [facility] mcIU/mL [facility] LABORATORY [...] Organization Address City/State/ZIP Code [place] [address] XR Chest PA & [...] have questions please contact the health career resource technician that requested your imaging first. ? [...] have questions please contact the health career resource technician that requested your imaging first. Regina Hinds MD IMG DX ORDERABLES Lipase (05/31/2022 10:50 AM EDT) P athologist Signature Lipase 41 0 - 60 [facility]/L [facility] LABORATORY Specimen Anatomical Collection Method Collection Time Receive d Time (Source) Location / / Volume Laterality Blood Venous Draw / 05/31/2022 10:50 05/31/2022 Unknown AM EDT 11:11 AM EDT Resulting Agency Comment Spec In Lab Zain Champion MD CHEMISTRY ORDERABLES Performing Organization Address City/[facility]/ZIP [place] [address] (ABNORMAL) Hepatic Function Panel (05/31/2022 10:50 AM EDT) Analysis Performed At Patho logist Time Signature Total Protein 6.4 6.1 - 8.0 [facility] g/dL [facility] LABORATORY Albumin 4.1 3.2 - 5.2 [facility] XIAO g/dL [facility] LABORATORY AST 24 0 - 39 [facility] XIAO unit/L [facility] LABORATORY ALT 44 0 - 55 [facility] unit/L [facility] LABORATORY Alk Phos 63 40 - 130 [facility]/L [facility] LABORATORY Total <0.2 (L) 0.2 - 1.3 [facility] Bilirubin mg/dL [facility] LABORATORY Bili, Direct 0.1 0.0 - 0.3 [facility] XIAO mg/dL [facility] LABORATORY Specimen Anatomical Collection Method Collection Time Receive d Time (Source) Location / / Volume Laterality Blood Venous Draw / 05/31/2022 10:50 05/31/2022 Unknown AM EDT 11:11 AM EDT Resulting Agency Comment Spec In Lab Zain Champion MD CHEMISTRY ORDERABLES Performing Organization Address City/[facility]/ZIP [place] [address] Blue Tube HOLD (05/31/2022 10:50 AM EDT) P athologist Signature Blue Hold Sample in [facility] lab. [facility] LABORATORY Specimen Anatomical Collection Method Collection Time Receive d Time (Source) Location / / Volume Laterality Blood Venous Draw / 05/31/2022 10:50 05/31/2022 Unknown AM EDT 11:05 AM EDT Brittany Ramirez MD HEMATOLOGY ORDERABLES Performing Organization Address City/State/ZIP Code [place] [address] (ABNORMAL) Differential, Automated (05/31/2022 10:50 AM EDT) athologist Signature Neutrophils % 66.9 % [facility] LABORATORY Neutr Abs (ANC) 5.58 1.70 - [facility] 6.10 [facility] x10(3)/[facility] LABORATORY Lymphocytes % 22.2 % [facility] LABORATORY Lymphocytes Abs 1.8 0.9 - 3.2 [facility] x10(3)/[facility] LABORATORY Monocytes % 7.8 % [facility] LABORATORY Monocyte Abs 0.6 0.3 - 0.9 [facility] x10(3)/[facility] LABORATORY Eosinophils % 1.2 % [facility] LABORATORY Eosinophils Abs 0.1 0.0 - 0.4 [facility] x10(3)/[facility] LABORATORY Basophils % 0.7 % [facility] LABORATORY Basophils Abs 0.1 0.0 - 0.1 [facility] x10(3)/[facility] LABORATORY Immature Gran % 1.20 % [facility] LABORATORY Comment: [...] 0.00 - 0.04 x10(3)/[facility] LABORATORY Specimen Anatomical Collection Method Collection Time Receive d Time (Source) Location / / Volume Laterality Blood 05/31/2022 10:50 05/31/2022 AM EDT 11:03 AM EDT Resulting Agency Comment Spec In Lab Brittany Ramirez MD HEMATOLOGY ORDERABLES Performing Organization Address City/State/ZIP Code [place] [address] HOSPITAL LABORATORY Drive (ABNORMAL) Hemogram (05/31/2022 10:50 AM EDT) Analysis Performed At Patho logist Time Signature WBC 8.3 4.0 - 9.5 [facility] x10(3)/[facility] LABORATORY RBC 2.26 (L) 4.58 - [place] [place] 5.54 [facility] x10(6)/[facility] LABORATORY Hemoglobin 7.4 (L) 13.7 - [facility] 16.5 g/dL [facility] LABORATORY Hematocrit 22.3 (L) 40.5 - [facility] 48.5 % [facility] LABORATORY MCV 98.7 (H) 82.9 - [facility] 93.1 [facility] LABORATORY MCH 32.7 (H) 27.5 - [facility] 32.1 pg [facility] LABORATORY MCHC 33.2 32.0 - [facility] 35.7 g/dL [facility] LABORATORY Platelets 283 145 - 357 [facility] x10(3)/[facility] LABORATORY RDWSD 47.0 (H) 36.0 - [facility] 45.0 [facility] LABORATORY RDWCV 13.4 11.4 - [facility] 13.8 % [facility] LABORATORY MPV 10.8 7.6 - 12.9 [facility] LABORATORY nRBC % Auto 0.0 % [facility] LABORATORY nRBC Abs Auto 0.000 0.000 - [facility] 0.000 [facility] x10(3)/[facility] LABORATORY Specimen Anatomical Collection Method Collection Time Receive d Time (Source) Location / / Volume Laterality Blood 05/31/2022 10:50 05/31/2022 AM EDT 11:03 AM EDT Resulting Agency Comment Spec In Lab Brittany Ramirez MD HEMATOLOGY ORDERABLES Performing Organization Address City/State/ZIP [place] [address] Phosphorus (05/31/2022 10:50 AM EDT) P athologist Signature Phosphorus 3.2 2.5 - 4.5 [facility] mg/dL [facility] LABORATORY Specimen Anatomical Collection Method Collection Time Receive d Time (Source) Location / / Volume Laterality Blood 05/31/2022 10:50 05/31/2022 AM EDT 11:03 AM EDT Resulting Agency Comment Spec In Lab Regina Hinds MD CHEMISTRY ORDERABLES Performing Organization Address City/State/ZIP Code Phon e Number [address] Magnesium (05/31/2022 10:50 AM EDT) athologist Signature Magnesium 0.93 0.69 - 1.07 [facility] XIAO mmol/L [facility] LABORATORY Specimen Anatomical Collection Method Collection Time Receive d Time (Source) Location / / Volume Laterality Blood 05/31/2022 10:50 05/31/2022 AM EDT 11:03 AM EDT Resulting Agency Comment Spec In Lab Regina Hinds MD CHEMISTRY ORDERABLES Performing Organization Address City/[facility]/ZIP [place] [address] (ABNORMAL) pro-Brain Natriuretic Peptide (05/31/2022 10:50 AM EDT) athologist [facility] ProBNP 1,077 (H) <=449 [facility] XIAO pg/mL [facility] LABORATORY Specimen Anatomical Collection Method Collection Time Receive d Time (Source) Location / / Volume Laterality Blood 05/31/2022 10:50 05/31/2022 AM EDT 11:03 AM EDT Resulting Agency Comment Spec In Lab Regina Hinds MD CHEMISTRY ORDERABLES Performing Organization Address City/[facility]/ZIP [place] [address] Troponin (05/31/2022 10:50 AM EDT) athologist [facility] Troponin-T <0.01 0.00 - 0.00 [facility] ng/mL [facility] LABORATORY Comment: The 99th percentile for [...] sample may be indicated. Reference: Third [place] Definition of Myocardial Infarction. Journal of the [place] College [employer] Cardiology 2012;60:1581-98 Specimen Anatomical Collection Method Collection Time Receive d Time (Source) Location / / Volume Laterality Blood 05/31/2022 10:50 05/31/2022 AM EDT 11:03 AM EDT Resulting Agency Comment Spec In Lab Regina Hinds MD CHEMISTRY ORDERABLES Performing Organization Address City/State/ZIP [place] [address] (ABNORMAL) Basic Metabolic Panel (non-fasting) (05/31/2022 10:50 AM EDT) P athologist Signature Glucose Lvl 223 (H) 65 - 199 [facility] mg/dL [facility] LABORATORY Comment: Diabetes: >=200 mg/dL plus symp toms BUN 39 (H) 10 - 20 mg/dL [facility] LABORATORY Creatinine 0.91 0.80 - 1.50 mg/dL [facility] LABORATORY Sodium 140 135 - 145 [...] LABORATORY Estimated GFR 86 >=60 mL/min/1.73 m?? [facility] [...] Organization Address City/State/ZIP Code [place] [address] EKG 12 Lead (05/31/2022 10:11 AM EDT) Component Value Ref Range Test Analysis Performed Pathologis t Method Time At Signature Ventricular rate 106 BPM MUSE SYSTEM QRS Duration 122 ms MUSE SYSTEM Q-T Interval 368 ms MUSE SYSTEM QTC Calculated 488 ms MUSE SYSTEM (Bezet) Calculated R [place] -43 degrees MUSE SYSTEM Calculated T [place] 109 degrees MUSE SYSTEM INTERPRETATION Atrial fibrillation [...] erpretation Confirmed by fellow MD Mike, [place] ([id number]) on 022 8:36:21 PM Confirmed by MD [...] 08 (Given - Provider: Trinidad Saenz RN) 0812 (Given - Provider: Trinidad Saenz RN) 75 [...] (Lidoderm) 5% patch 2 patch(Linked Group 1) 3009 (Patch Applied - Provider: Raven Barbour RN [...] 40 mg 2108 (Given - Provider: Raven Barbour, DION) 0812 [...] 141 (Given - Provider: Trinidad Saenz RN) 0812 [...] Group 2) 0-4,000 Units, Intravenous, BOLUS PER [facility] PR[facility], Starting on Fri05/31/22 at 2013, Until [...] - Less than 0.1 international unit/mL: 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
Routine documented in this encounter Care Teams Rehabilitation Consultant Relationship Specialty Start Date End Date Abby Das MD PCP - General 10/02/[address] [place] [address] [place] [phone] documented as of this encounter
--- OUTSIDE RECORDS SUMMARY | 2022-08-05 09:00 | XMS_ITS | Encounter Summary ---
:1940 Author Organization [facility] [place] [address] Care Team Providers Name Role Phone Bobby Das MD Primary Care Provider Reason for Visit Auth/Cert Specialty Diagnoses / Procedures Referred By Contact Refer red To Contact Diagnoses GIB (gastrointestinal bleeding) Abe [facility] [place] [place] [address] Referral ID Status Reason Start Date Expiration Date Visits Requ ested Visits Authorized [id number] 1 1 Encounter Details Date Type Department Care Team Description 05/31/2022 Anesthesia Event Gastroenterology at [facility] Elmer Johnson MD [facility] [place] [address] [facility] Yogi Machado CRNA [facility] [place] [address] [place] [address] Anesthesia Record Procedure Summary Procedure Name [...] 06/02/22 [address], vein (antecubital fossa), Eylander, Lissette E, RN Raven O, RN left; 20 gauge; lumen/catheter not patent, removed per policy/procedure, catheter/device intact; 06/02/22; 0400 PIV 05/31/22; 1300; median cubital 05/31/22 1300 by Mariel, 06/02/22 1345 by vein (antecubital fossa), DION Carpenter Alysia O, RN right; idex-gtl-ueohxe catheter system; 20 gauge; no longer indicated, [...] Procedure Summary Date: 05/31/22 Room / Location: [facility] ENDO 3 / [facility] ENDOSCOPY Anesthesia Start: 1603 Anesthesia Stop: 165 Procedures: EGD, UPPER GI ENDOSCOPY (N/A Trunk) EGD, W CONTROL OF BLEEDING, ANY METHOD Diagnosis: (melena) Surgeons: Giovani Ponce MD Responsible Provider: Elmer Johnson MD Anesthesia Type: MAC ASA Status: 3 All Anesthesia Providers: Anesthesiologist: Elmer Johnson MD DISTANCE EDUCATION COORDINATOR: Yogi Dawkins CRNA Vitals Value Taken Time BP 95/62 05/31/22 1720 Temp Pulse Resp 18 05/31/22 1720 SpO2 99 % 05/31/22 1720 Pain Level 0 05/31/22 1720 Patient Location: PACU/[facility] Level of Consciousness: Awake and Alert [...] 07/20/2019 Bobby Marshall MD [facility] INTERVENTIONL RAD ??? IR VERTEBROPLASTY LUMBAR MULTIPLE LEVELS 07/20/2019 IR Vertebroplasty Lumbar Multiple Levels 07/20/2019 Bobby Marshall MD [facility] INTERVENTIONL RAD ??? IR VERTEBROPLASTY THORACIC SINGLE LEVEL 10/25/2020 IR Vertebroplasty Thoracic Single Level 10/25/2020 Matt Chisholm MD [facility] INTERVENTIONL RAD ??? PRO EMBLC/THRMBC FEMORAL POPLITEAL AORTO-ILIAC ARTERY Left 05/15/2022 EMBOLECTOMY OR THROMBECTOMY, FEMOROPOPLITEAL, AORTOILIAC ARTERY BY LEG INCISION (WRVU 19.48) performed by Fito Summers MD at [facility] MAIN OR ??? PRO UPPER GI ENDOSCOPY, CTRL BLEED 05/31/2022 EGD, W CONTROL OF BLEEDING, ANY METHOD performed by Giovani Ponce MD at [facility] ENDOSCOPY ??? PRO UPPER GI ENDOSCOPY, DIAGNOSTIC N/A 05/31/2022 EGD, UPPER GI ENDOSCOPY performed by Giovani Ponce MD at [facility] ENDOSCOPY Social History Tobacco Use ??? Smoking [...] risks discussed with patient. Plan discussed with DISTANCE EDUCATION COORDINATOR. Anesthesia Screening documented in this encounter Plan of Treatment Upcoming Encounters Date Type Specialty Care Team Description 08/08/2022 TH Visit (TeleHealth) Gastroenterology Dixon Collins MD [facility] GASTROENTEROLOGY DEPT [place], [place] [address] (Wo rk) 09/05/2022 Appointment Cardiology Trinity Reid MD [facility] CARDIOLOGY [place], [place] [address] (Wo rk) 09/05/2022 Office Visit Cardiology Trinity Reid MD [facility] CARDIOLOGY [place], [place] [address] (Wo rk) 10/02/2022 Clinical Support Dermatology Thai Lynn MD [facility] DR JENNY BILLY-DERMAT [place], [place] [address] (Wo rk) 10/02/2022 Procedure visit Dermatology Jace Lynn MD [facility] DR JENNY BILLY-DERMAT [place], [place] [address] (Wo rk) documented as of [...] mg documented in this encounter Care Teams Catering Associate Relationship Specialty Start Date End Date Bobby Das MD PCP - General 10/02/[address] [place] [address] [place] [phone] documented as of this encounter
--- OUTSIDE RECORDS SUMMARY | 2022-08-05 09:00 | XMS_ITS | Encounter Summary ---
:1940 Author Organization [facility] [place] [address] Care Team Providers Name Role Phone Bobby Das MD Primary Care Provider Encounter Details Date Type Department Care Team Description 06/13/2022 Tech Visit Vascular Lab at [facility] G[facility]am Limb ischemia [place] [address] Social History Tobacco Use Types Packs/Day Years [...] TH Visit (TeleHealth) Gastroenterology Dixon Collins MD [facility] DR GASTROENTEROLOGY DEPT [place], [place] [address] (Rebekah rk) 09/05/2022 Appointment Cardiology Trinity Reid MD [facility] ER CARDIOLOGY [place], [place] [address] (Rebekah rojas) 09/05/2022 Office Visit Cardiology Trinity Reid MD [facility] CARDIOLOGY [place], [place] [address] (Rebekah rojas) 10/02/2022 Clinical Support Dermatology Thai Lynn MD [facility] ER DR JENNY BILLY-DERMAT [place] [id number] (Wo rk) 10/02/2022 Procedure visit Dermatology Jace Lynn MD [facility] MEDICAL CENT ER DR JENNY BILLY-DERMAT [place], [place] [address] (Wo rk) documented as of this encounter Procedures Procedure Name Priority Date/Time Associated Diagnosis Comme nts JOSSELYN, LEGS, MULTIPLE Routine 06/13/2022 7:13 AM Limb ischemia R esults for this LEVELS EDT procedure are i n the results section. documented in this encounter Results JOSSELYN, legs, multiple levels (06/13/2022 7:13 AM EDT) Component Value Ref Test Analysis Performed At [facility] Weekdone Range Method Time Signature VB Text Department: Vascular Surgery Lab VASCUBASE Report Patient: [id number] (ETTA BAH) CPT: 54084 Referring Physician: FITO SUMMERS ?? Phone: Indications: s/p L ROLL WINDER endart. Diabetes mellitus: no Findings: Right ?Pressure [...] previous study in our vascular lab da lexi for comparison. Electronically Signed by: FITO SUMMERS [...] disorder documented in this encounter Care Teams International Marketing Specialist Relationship Specialty Start Date End Date Bobby Das MD PCP - General 10/02/[address] [place] [address] [place] [phone] documented as of this encounter
--- OUTSIDE RECORDS SUMMARY | 2022-08-05 09:00 | XMS_ITS | Encounter Summary ---
:1940 Author Organization [facility] [place] [address] Care Team Providers Name Role Phone Bobby Das MD Primary Care Provider Encounter Details Date Type Department Care Team Description 06/25/2022 Surgery Gastroenterology at [facility] Giovani Ponce, EGD, UPPER GI [facility] Bobby [place] [phone] [facility] [phone] [place], [place] [address] Social History Tobacco Use Types [...] AM EDT Temperature - - Respiratory Rate 16 06/25/2022 12:20 PM EDT [...] the day after the procedure, use an zprg-ktr-niwfnul spray to numb your throat. Sucking on [...] occurs, please contact your Doctor. Please call [phone] before 8pm Mon-Fri with problems, questions or concerns. If you call after 8pm or on weekends, call the Hospital at [phone] and ask to speak to the Academic Guidance Specialist fire investigation manager and the laser beam machine operator will contact that person for you. When should you call for help? Call [phone] anytime you think you may need emergency [...] any problems. Where can you learn more? [facility] View your After Visit Summary and more online at [email or web address] If you would like to provide feedback [...] cost to you. Content Version: 12.2 ?? 2567-0715 [employer]. Care instructions adapted under license by [facility]. If you have questions about a medical condition or this instruction, always ask your healthcare professional. [employer] disclaims any warranty or liability for your [...] occurs, please contact your Doctor. Please call [phone] before 8pm Mon-Fri with problems, questions or concerns. If you call after 8pm or on weekends, call the Hospital at [phone] and ask to speak to the Academic Guidance Specialist fire investigation manager and the laser beam machine operator will contact that person for you. When should you call for help? Call [phone] anytime you think you may need emergency [...] any problems. Where can you learn more? [facility] View your After Visit Summary and more online at [email or web address] If you would like to provide feedback [...] cost to you. Content Version: 12.2 ?? 3559-9392 [employer]. Care instructions adapted under license by [facility]. If you have questions about a medical condition or this instruction, always ask your healthcare professional. [employer] disclaims any warranty or liability for your [...] Take 1 tablet by 90 tablet 3 /0 02/2022 (0.125 mg) Tablet mouth daily. acetaminophen [...] 21 (FLONASE) 50 mcg/actuation Nare route daily [place], Suspension as needed. fluorouraciL (EFUDEX) 5 % Cream daily. 0 06/0 01/2021 ascorbic acid, vitamin C, Take 1,000 mg by 0 2 04/2020 (VITAMIN C) 1,000 mg Tablet mouth daily. [...] ischemia I99.8 ??? 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 HFrEF (heart failure with reduced ejection [...] TH Visit (TeleHealth) Gastroenterology Dixon Collins MD [facility] GASTROENTEROLOGY DEPT [place], [place] [address] (Wo rk) 09/05/2022 Appointment Cardiology Trinity Reid MD [facility] ER CARDIOLOGY [place], [place] [address] (Wo rk) 09/05/2022 Office Visit Cardiology Trinity Reid MD [facility] DR WARNER [place], [place] [address] (Wo rk) 10/02/2022 Clinical Support Dermatology Thai Lynn MD [facility] DR JENNY BILLY-DERMAT [place], [place] [address] (Wo rk) 10/02/2022 Procedure visit Dermatology Jace Lynn MD [facility] DR JENNY BILLY-DERMAT [place], [place] [address] (Wo rk) documented as of [...] Hospital Range Method Time Signature UPPER GI [facility] ENDOSCOPY Endoscopy Procedure Date: 06/25/2022 10:33 AM ? Patient Name: Koko Zamora ? Date of : 1940 ? Age: 81 ? Order #: [id number] ? Instrument Name: EC-760P- [id number] ? Procedure: ? Upper GI endoscopy Indications: [...] [facility]oscope w as ? [facility], and ? advanced to the proximal [...] Component Value Ref Test Analysis Performed At [facility] Method Time Signature COLONOSCOPY [facility] Endoscopy Procedure Date: 06/25/2022 10:33 AM ? Patient Name: Koko Zamora ? Date of : 1940 ? Age: 81 ? Order #: [id number] ? Instrument Name: EC-760P- [id number] ? Procedure: ? Colonoscopy Indications: ? Gastrointestinal [...] Impression: ?- The examined portion of the marvin bhat ? was normal. ? - Two small [...] Procedure Code(s): ? --- Professional --- ? 61455, Colonoscopy, flexib le; with ? control of [...] of sigmoid ? colon CPT copyright 2020 [employer]. All rights reserved. The codes documented in this report are preliminary and upon fire patrol review may be revised to meet current [...] CONTINUOUS, Starting on Fri06/25/22 at 1100, Until Tu06/25/22 at 1258, Endoscopy (Day of Procedure) documented in this encounter Active and Recently Administered Medications Times are shown in EDT. Continuous Medication Order 06/23/2022 06/24/2022 06/25/2022 lactated ringers infusion (CANCELED) 1100 (New Bag - Provider: Mame Peterson, RN) 100 mL/hr, Intravenous, CONTINUOUS, Star ting on Fri06/25/22 at 1100, Until Fri06/25/22 at 1258, Endoscopy (Day of Procedure) documented in this encounter Care Teams Services Delivery Driver Relationship Specialty Start Date End Date Bobby Das MD PCP - General 10/02/[address] [place] [address] [place] [phone] documented as of this encounter
--- OUTSIDE RECORDS SUMMARY | 2022-08-05 09:00 | XMS_ITS | Encounter Summary ---
:1940 Author Organization [facility] [place] [address] Care Team Providers Name Role Phone Bobby Das MD Primary Care Provider Reason for Visit Reason Comments Skin Lesion Consultation (Routine) - Closed Specialty Diagnoses / Procedures Referred By Contact Refer red To Contact Dermatology Diagnoses Lesion on right eye = hx of skin cancer Bobby Das MD [facility] Dermatology Procedures Lesion on right eye = hx of skin cancer [address] [place] [address] [address] [place] [address] [place] [address] Fax: Referral ID Status Reason Start Date Expiration Date Visits Requ ested Visits Authorized [id number] Closed 04/22/2022 04/22/2023 1 1 Encounter Details Date Type Department Care Team Description 06/10/2022 [facility] Neoplasm of Road unspecified behavior [address] [facility] [place] [address] [address] and skin [phone] DERMATOLOGY [place] [address] Social History Tobacco Use Types Packs/Day Years [...] nevi N SCC N BCC 2015: right rastafari, BCC s/p mohs 09/2018: right eyebrow, BCC [...] been present since last Mohs surgery in 2017. The area can bepruritic. It started to [...] N/A RTC: Pending pathology []Note routed to payroll secretary []Recall placed in scheduling system []Appointment scheduled at checkout Scribe attestation: Sidney Higgins and Loretta Gomez CMA performed the documentation for this encounter in the presence of and acting as a scribe for Noel Burgos MD. I performed the above scribed service and agree with the accuracy of the documentation in this encounter. Reviewed and signed by: Noel Burgos MD Dermatology On License Of [facility] Loretta Cohen MD - 06/10/2022 11:00 AM EDT DERMATOLOGY TELEPHONE NOTE Koko Zamora 06/17/2022 [id number] Reason for call: Discuss biopsy results I called the patient this afternoon to discuss the results of his recent biopsy: - ??Basal cell carcinoma, nodular pattern, transected at the peripheral and deep ??specimen edges We discussed the recommendation for mohs surgery, patient in agreement. Referral placed. Loretta Coehn MD Dermatology Resident documented in this encounter Plan of Treatment Upcoming Encounters Date Type Specialty Care Team Description 08/08/2022 TH Visit (TeleHealth) Gastroenterology Dixon Collins MD [facility] GASTROENTEROLOGY DEPT [place], [place] [address] (Rebekah rojas) 09/05/2022 Appointment Cardiology Trinity Reid MD [facility] CARDIOLOGY [place], [place] [address] (Rebekah rojas) 09/05/2022 Office Visit Cardiology Trinity Reid MD [facility] CARDIOLOGY [place] [address] (Wo rk) 10/02/2022 Clinical Support Dermatology Thai Lynn MD [facility] DR JENNY BROWN-DERMAT [place], [place] [address] (Wo rk) 10/02/2022 Procedure visit Dermatology Jace Lynn MD [facility] DR JENNY BROWN-DERMAT [place], [place] [address] (Wo rk) documented as of this encounter [...] PM 2 1:20 EDT PM EDT Narrative [facility] - 06/10/2022 1:20 PM EDT Specimen requisition ordered. ??Separate Pathology report to follow Loretta Cohen MD PATHOLOGY/CYTOLOGY ORDERABLE S Performing Organization Address City/State/[place] [address] Surgical Pathology Report (06/10/2022 11:43 AM EDT) Component Value Ref Test Analysis Performed At [facility] Range Method Time Signature Surgical [id number] ? Location: [facility] Pathology [place] Report The signing pathologist has (i) examined the relevant preparation(s) for the [facility] specimen(s) and (ii) rendered or confirmed the diagnosis(es) . HOSPITAL LABORATORY . ?Surgic al Pathology DIAGNOSIS Right lateral eyebrow, skin shave biopsy: - ??Basal cell carcinoma, no dular pattern, transected at the peripheral and deep specimen edges Electronically signed by: ?Delroy CARCAMO, PhD, [place] Verified: ??06/12/2022 14:33 ??Dermatopathologist Performed at: ??-[facility] Dept. of Pathology, [place], [place] SPECIMEN(S) SUBMITTED A - right lateral [...] City/State/[place] [address] [facility] LABORATORY [facility] documented in this encounter Visit Diagnoses Diagnosis Neoplasm of unspecified behavior of bone , soft tissue, and skin documented in this encounter Care Teams Process Mold Technician Relationship Specialty Start Date End Date Bobby Das MD PCP - General 10/02/[address] [place] [address] [place] [phone] documented as of this encounter
--- OUTSIDE RECORDS SUMMARY | 2022-08-05 09:00 | XMS_ITS | Encounter Summary ---
:1940 Author Organization [place] [address] Care Team Providers Name Role Phone Bobby Das MD Primary Care Provider Encounter Details Date Type Department Care Team Description 06/19/[address] [facility] Kourtney Jimenez, [place] [address] Social History Tobacco Use Types Packs/Day Years [...] TH Visit (TeleHealth) Gastroenterology Dixon Collins MD [facility] GASTROENTEROLOGY DEPT [place], [place] [address] (Wo rk) 09/05/2022 Appointment Cardiology Trinity Reid MD [facility] CARDIOLOGY [place], [place] [address] (Wo rk) 09/05/2022 Office Visit Cardiology Trinity Reid MD [facility] CARDIOLOGY [place], [place] [address] (Wo rk) 10/02/2022 Clinical Support Dermatology Thai Lynn MD [facility] DR JENNY BILLY[facility]DERMAT [place], [place] [address] (Wo rk) 10/02/2022 Procedure visit Dermatology Jace Lynn MD [facility] DR JENNY [address]ILL[address] [place], [place] [address] (Wo rk) documented as of this encounter Visit Diagnoses Not on filedocumented in this encounter Care Teams Vb Net Programmer Relationship Specialty Start Date End Date Bobby Das MD PCP - General 10/02/[address] [place] [address] [place] [id number] documented as of this encounter
--- OUTSIDE RECORDS SUMMARY | 2022-08-05 09:00 | XMS_ITS | Encounter Summary ---
:1940 Author Organization [facility] [place] [address] Care Team Providers Name Role Phone Bobby Das MD Primary Care Provider Encounter Details Date Type Department Care Team Description 06/24/[address] [facility] Alan August MD [facility] [place] [phone] GASTROENTEROLOGY DEPT [phone] [place], [place] [address] (Wo rk) Social History Tobacco [...] data. I [facility] today [facility] was requesting here and back endoscopic evaluation. The provider reports that Anesthesia doesn'tfeel comfortable doing procedures there, they have no attending but only CRNAs. By report, he was having some dark stools with straining, and then BRBPR started following his episodes of straining. Last colonoscopy was 5 years ago, and was reportedly normal including no polyps and no diverticulosis. This was done at [facility]. HgB 8.6 today. There has not [...] TH Visit (TeleHealth) Gastroenterology Dixon Collins MD [facility] GASTROENTEROLOGY DEPT [place], [place] [address] (Wo rk) 09/05/2022 Appointment Cardiology Trinity Reid MD [facility] CARDIOLOGY [place], [place] [address] (Wo rk) 09/05/2022 Office Visit Cardiology Trinity Reid MD [facility] DR [address]ER [place], [place] [address] (Wo rk) 10/02/2022 Clinical Support Dermatology Thai Lynn MD [facility] DR JENNY BILLY[facility]DERMAT [place], [place] [address] (Wo rk) 10/02/2022 Procedure visit Dermatology Jace Lynn MD [facility] DR [address]ENNY [address] [place], [place] [address] (Wo rk) documented as of this encounter Visit Diagnoses Not on filedocumented in this encounter Care Teams Landscaper Relationship Specialty Start Date End Date Bobby Das MD PCP - General 10/02/[address] [place] [address] [place] [id number] documented as of this encounter
--- OUTSIDE RECORDS SUMMARY | 2022-08-05 09:00 | XMS_ITS | Encounter Summary ---
:1940 Author Organization [facility] [place] [address] Care Team Providers Name Role Phone Bobby Das MD Primary Care Provider Reason for Referral Consultation (Routine) - Authorized Specialty Diagnoses / Procedures Referred By Contact Refer red To Contact Dermatology Diagnoses Basal cell carcinoma (BCC) of right forehead Loretta Cohen MD Leboeuf, Matthew R, MD [facility] [place] [address] [place] [address] Fax: Referral ID Status Reason Start Date Expiration Visits Visits Date Requested Authorized [id number] Authorized Consult, 06/17/2022 06/17/2023 1 1 Test & Treat Encounter Details Date Type Department Care Team Description 06/17/2022 Orders Only Dermatology at [facility] Basal cell carcinoma Nicol CARCAMO (BCC) of right [address] [place] [address] [place], [place] [address] Social History Tobacco Use Types [...] MD [facility] GASTROENTEROLOGY DEPT [place], [place] [address] (Wo rk) 09/05/2022 Appointment Cardiology Trinity Reid MD [facility] CARDIOLOGY [place], [place] [address] (Wo rk) 09/05/2022 Office Visit Cardiology Trinity Reid MD [facility] CARDIOLOGY [place], [place] [address] (Wo rk) 10/02/2022 Clinical Support Dermatology Thai Lynn MD [facility] DR JENNY [address]ILLY[place]DERMAT [place], [place] [address] (Wo rk) 10/02/2022 Procedure visit Dermatology Jace Lynn MD [facility] DR [address]ENNY [address] [place], [place] [address] (Wo rk) Scheduled Referrals Name Type Priority Associated Order Schedule Diagnoses Referral to Outpatient Referral Routine Basal cell Ordered: Dermatology carcinoma (BCC) of 2 right forehead documented as of this encounter Visit Diagnoses Diagnosis Basal cell carcinoma (BCC) of right fore head documented in this encounter Care Teams Aligner Relationship Specialty Start Date End Date Bobby Das MD PCP - General 10/02/[address] [place] [address] [place] [id number] documented as of this encounter
--- OUTSIDE RECORDS SUMMARY | 2022-08-05 09:00 | XMS_ITS | Encounter Summary ---
:1940 Author Organization [facility] [place] [address] Care Team Providers Name Role Phone Abby Das MD Primary Care Provider Reason for Visit Reason Comments Dizziness Auth/Cert Specialty Diagnoses / Procedures Referred By Contact Refer red To Contact Diagnoses GIB (gastrointestinal bleeding) Abe [facility] [place] [address] Referral ID Status Reason Start Date Expiration Date Visits Requ ested Visits Authorized [id number] 1 1 Encounter Details Date Type Department Care Team Description 05/31/2022 Surgery Gastroenterology at [facility] Giovani Ponce, EGD, UPPER GI [facility] [place] [address] [facility] [phone] [place] [address] Social History Tobacco Use Types Packs/Day [...] ?? Hospital Course: Koko was admitted to [facility] on 05/31/2022 and discharged home on [...] switching to a different bloodthinner with the teradata architect outpatient. Call your doctor or seek medical [...] switchingto a different blood thinner with your teradata architect as an outpatient Stopped Medications - Aspirin - Valsartan - Speak with your teradata architect about the timing of restarting this Follow-up Appointments Future Appointments Date Time Provider Department Center 06/10/2022 11:00 AM Loretta Cohen MD [facility] 06/13/2022 7:30 AM Edson [place] [facility] VAS LAB [facility] 06/13/2022 8:00 AM Fito Summers MD [facility] V SURG [facility] 06/13/2022 10:00 AM Alan Reid MD [facility] CARD 4A [facility] Your Inpatient Medical Team at [facility] Name(s) of your inpatient provider(s): Dr. John Ames For questions regarding issues relating to your hospitalization on the Hospital Medicine Service, please contact your inpatient physician through the [facility] [place]ht[place] Soaping Machine Operator [phone]. Issues after hours and on weekends will be handled by the Hospitalist staff on-call. Your Primary Care Provider Abby Das MD [phone] Future Appointments and Orders Future Appointments and Orders Future Appointments Provider Department Dept Phone 06/10/2022 11:00 AM Loretta Cohen MD Dermatology at [facility] Arrive at: Injection Mold Tooling Technician [address] [place] [phone] 06/13/2022 7:30 AM dEson [place] Vascular Lab at [facility] Arrive at: Injection Mold Tooling Technician Area 06/13/2022 8:00 AM Fito Summers MD Vascular Surgery at [facility] Arrive at: Injection Mold Tooling Technician Area 06/13/2022 10:00 AM Alan Reid MD Cardiology at [facility] Arrive at: Injection Mold Tooling Technician Area 4A [phone] For questions regarding this document or issues relating to this hospitalization on the Medical Service, please contact your inpatient physician through the [facility] [place] Soaping Machine Operator . Issues after hours and on [...] switching to a different bloodthinner with the teradata architect outpatient. Call your doctor or seek medical [...] switchingto a different blood thinner with your teradata architect as an outpatient Stopped Medications - Aspirin - Valsartan - Speak with your teradata architect about the timing of restarting this Follow-up Appointments Future Appointments Date Time Provider Department Center 06/10/2022 11:00 AM Lroetta Cohen MD [facility] 06/13/2022 7:30 AM Edson [place] [facility] VAS LAB ILDA POWELL 06/13/2022 8:00 AM Fito Summers MD [facility] V SURG [facility] 06/13/2022 10:00 AM Alan Reid MD [facility] CARD 4A [facility] Your Inpatient Medical Team at [facility] Name(s) of your inpatient provider(s): Dr. John Ames For questions regarding issues relating to your hospitalization on the Hospital Medicine Service, please contact your inpatient physician through the [facility] [place] Soaping Machine Operator [phone]. Issues after hours and on weekends will be handled by the Hospitalist staff on-call. Your Primary Care Provider Abby Das MD [phone] documented in this encounter Medications at Time [...] 04/12/20 21 (FLONASE) 50 mcg/actuation Nare route Goltry, Suspension daily as needed. fluorouraciL (EFUDEX) 5 [...] spent >30 minutes (Day of Discharge Code 79700) involved in the final examination of the [...] from the original note were not included. [facility] Progress Note [place] Team - Pager #[phone] Admit Date: 05/31/2022 Name: Koko Zamora : [...] cardiology to discuss antiplatelet (ISO bleed and long-term), following. ?? #CAD s/p stenting recently #HFrEF [...] Kurt Ames MD Internal Medicine, PGY-1 Medicine [place] Team #[id number] Associated attestation - John Jolley MD - [...] of two midnights or is on the [facility] inpatient only procedure list (status C) due to: GI Bleeding documented in this encounter H&P Notes Mahendra Victor MD - 05/31/2022 4:33 PM EDT Images from the original note were not included. [facility] (#[id number]) History and Physical Patient info: Name: Koko Zamora : 1940 PCP: Abby Das MD PCP phone number: [phone] Date of Admission: 05/31/2022 ( Hospital Day [...] IR Biopsy Spine 07/20/2019 Abby Marshall MD [facility] INTERVENTIONL RAD ??? IR VERTEBROPLASTY LUMBAR MULTIPLE LEVELS 07/20/2019 IR Vertebroplasty Lumbar Multiple Levels 07/20/2019 Abby Marshall MD [facility] INTERVENTIONL RAD ??? IR VERTEBROPLASTY THORACIC SINGLE LEVEL 10/25/2020 IR Vertebroplasty Thoracic Single Level 10/25/2020 Matt Chisholm MD [facility] INTERVENTIONL RAD ??? PRO EMBLC/THRMBC FEMORAL POPLITEAL AORTO-ILIAC ARTERY Left 05/15/2022 EMBOLECTOMY OR THROMBECTOMY, FEMOROPOPLITEAL, AORTOILIAC ARTERY BY LEG INCISION (WRVU 19.48) performed by Fito Summers MD at [facility] MAIN OR No family history on [...] 11 ??? fluticasone propionate (FLONASE) 50 mcg/actuation Goltry, Suspension as needed. ??? fluorouraciL (EFUDEX) 5 [...] Gas) No results found for: PHART, PO2ART, HKX6VXH, JIJ6YXW Microbiology: N/A Pertinent radiology/diagnostic studies: Recent prior [...] Status: Full Arpita Valle MD, PGY-3 05/31/2022 [facility] # [id number] Attending Staff Admission Documentation [...] 10:50 AM EDT Pt brought to by radiology manager Brittany Ramirez MD - 05/31/2022 10:40 AM [...] first. Electronically signed by: Jl Zuluaga MD, [facility] ([phone]), at 05/31/2022 2:39 PM XR Chest PA [...] first. Electronically signed by: Alan Brink MD, [facility] ([phone]), at 05/31/2022 11:33 AM ED Course as [...] surgery is aware 1356 Vascular surgery aware. Graham to come and evaluate the patient. Starting [...] recommendations from Brittany Tavares MD Resident 05/31/22 [id number] Associated attestation - Regina Hinds MD - [...] soft blood pressures, MD made aware. LBM MATH INTERVENTIONIST. 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 Patient reported blurry/hazy [...] not included. Formerly [facility] [place] [phone] INPATIENT CARDIOLOGY CONSULT NOTE Date of Consultation: 06/01/2022 Admit Date: 05/31/2022 Place of Service: IS86/IS86-A Referring Attending: REGINA HINDS COLEMAN W FRIEDMAN, HARLEY P Responsible Worship Pastor: Dr. Rizo Hospital Day 1 day Reason for Consult: Antiplatelet/anticoagulation s/p pci and afib, with GI bleed HPI: Koko Zamora is a 81 y.o. male with a cardiac history significant for remote mitral valve repair (2000), pre-DM, HLD, significant alcohol use, tobacco use, Afib on xarelto, ischemic systolic heartfailure (recent [facility] 05/20/2022 with 2V disease OM1 and distal RCA, had ostial LCX and LCx stent) who presented to [facility] on 05/31/2022 for GI bleed. Patient presented [...] IR Biopsy Spine 07/20/2019 Abby Marshall MD [facility] INTERVENTIONL RAD ??? IR VERTEBROPLASTY LUMBAR MULTIPLE LEVELS 07/20/2019 IR Vertebroplasty Lumbar Multiple Levels 07/20/2019 Abby Marshall MD [facility] INTERVENTIONL RAD ??? IR VERTEBROPLASTY THORACIC SINGLE LEVEL 10/25/2020 IR Vertebroplasty Thoracic Single Level 10/25/2020 Matt Chisholm MD [facility] INTERVENTIONL RAD ??? PRO EMBLC/THRMBC FEMORAL POPLITEAL AORTO-ILIAC ARTERY Left 05/15/2022 EMBOLECTOMY OR THROMBECTOMY, FEMOROPOPLITEAL, AORTOILIAC ARTERY BY LEG INCISION (WRVU 19.48) performed by Fito Summers MD at [facility] MAIN OR ALLERGIES: Allergies Allergen Reactions [...] time ??? fluticasone propionate (FLONASE) 50 mcg/actuation Goltry, Suspension 1 spray by Each Nare route [...] Neurology: Without focal deficit ECG: Echocardiogram: 05/16/2022 [facility] 05/20/2022 Coronary Angiography: Dominance: Right Left [...] 3.5 guiding catheter and a 3.5 Fr [place] [employer] [place] [address] 20 Mhz. Imaging was successful. Image [...] A premounted 2.75 x 30 mm Rudy Yale (AMPARO) was deployed with a maximum inflation [...] may require modification of this regimen. Consult [facility] Interventional Cardiology for questions. The 1 year [...] Hb drop. Unknown source. has had a [facility] with stent placed and revascularization of [...] first. Electronically signed by: Jl Zuluaga MD, [facility] ([phone]), at 05/31/2022 2:39 PM [place] 48 Hrs-15 [...] first. Electronically signed by: Alan Brink MD, [facility] ([phone]), at 05/31/2022 11:33 AM LABS Recent Labs 06/01/22 0556 06/01/22 0000 05/31/227 [...] on xarelto, ischemic systolic heart failure (recent [facility] 05/20/2022 with 2V disease OM1 and distal RCA, had ostial LCX and LCx stent), recent admission for acutelimb ischemia LLE, where he had left common femoral transverse arteriotomy and primary repair, thromboembolectomy of the SFA, profunda and common femoral artery with 4 compartment fasciotomies, who presented to [facility] on 05/31/2022 for GI bleed. Cardiology consulted [...] attestation for additional insight. Rossy Anaya MD [facility] Paint Spray Inspector, PGY-5 Inpatient Cardiology Consults Pager #[phone] Please check Qgenda for on-call cardiology consults [...] A&Ox 4. On room air. VSS. LBM: MATH INTERVENTIONIST. Adequate urine output, urinal at bedside, flomax [...] surrogate would be surrogate decision maker per [place] surrogate decision making law. (Only good for 180 days) Any patient receiving care in [place] must abide by [place] law. The hierarchy for surrogate decision making [...] (i) The agent with financial power of state's attorney or a conservator appointed in accordance [...] walker - rolling Home Address confirmed as: [address] [place] [phone] Social & Family Supports: All names listed below confirmed with patient as current and correct Extended Emergency Contact Information Primary Emergency Contact: Ursula Zamora Address: [address] [place] [id number] [facility] Relation: Spouse Current Care Provided by: self [...] Type: *No Product type* / Secondary Insurance: [facility] Secondary Insurance? (Only Medicare A&B): Yes ; Prescription Coverage: Yes Preferred Pharmacy: [facility] [place], [place] - [address] [place] [address] [place] [address] [place] Status: Patient is a : No Primary Care Provider: Abby Das MD [phone] Patient/Caregiver Goals of Treatment: Patient plans to [...] with transition of care planning. ASH [place] Hand Embroiderer [facility] Specialties Pager- [phone] Plan of [...] Good RPH - 05/31/2022 9:42 PM EDT [facility] Medication List Update for Medication Reconciliation [...] be reconciled bythe provider. Please contact the [facility] Medication Reconciliation Pharmacist at for any questions. Lonnie Good RPH Op Note - Giovani Ponce MD - 05/31/2022 4:30 PM EDT DH Operative Note Patient Name: Koko Zamora : [id number] MR#: [id number] Case Date: 05/31/2022 Surgeon: Surgeon(s) and Role: [...] stomach. He has had colonoscopies before in [place] - notes first ever he had 6 [...] IR Biopsy Spine 07/20/2019 Abby Marshall MD [facility] INTERVENTIONL RAD ??? IR VERTEBROPLASTY LUMBAR MULTIPLE LEVELS 07/20/2019 IR Vertebroplasty Lumbar Multiple Levels 07/20/2019 Abby Marshall MD [facility] INTERVENTIONL RAD ??? IR VERTEBROPLASTY THORACIC SINGLE LEVEL 10/25/2020 IR Vertebroplasty Thoracic Single Level 10/25/2020 Matt Chisholm MD [facility] INTERVENTIONL RAD ??? PRO EMBLC/THRMBC FEMORAL POPLITEAL AORTO-ILIAC ARTERY Left 05/15/2022 EMBOLECTOMY OR THROMBECTOMY, FEMOROPOPLITEAL, AORTOILIAC ARTERY BY LEG INCISION (WRVU 19.48) performed by Fito Summers MD at [facility] MAIN OR SOCIAL HX: Social History [...] sounds, tympanic to percussion RECTAL: performed with general pediatrician present, no overt masses, fissures, external hemorrhoids, [...] first. Electronically signed by: Alan Brink MD, [facility] ([phone]), at 05/31/2022 11:[address] Abdomen & [...] TH Visit (TeleHealth) Gastroenterology Dixon Collins MD [facility] GASTROENTEROLOGY DEPT [place], [place] [address] ([facility]) 09/05/2022 Appointment Cardiology Trinity Reid MD [facility] CARDIOLOGY [place], [place] [address] ( rk) 09/05/2022 Office Visit Cardiology Trinity Reid MD [facility] DR WARNER [place], [place] [address] ( rk) 10/02/2022 Clinical Support Dermatology Thai Lynn MD [facility] DR JENNY BILLY-DERMAT OLOGY [place], [place] [address] ( rk) 10/02/2022 Procedure visit Dermatology Jace Lynn MD [facility] DR [address] RD-DERMAT [facility] [place], [place] [address] (Wo rk) documented as of [...] (ANC) 4.44 1.70 - [facility] 6.10 [facility] x10(3)/[facility] LABORATORY Lymphocytes % 25.2 % [facility] LABORATORY Lymphocytes Abs 1.8 0.9 - 3.2 [facility] x10(3)/[facility] LABORATORY Monocytes % 10.0 % [facility] LABORATORY Monocyte Abs 0.7 0.3 - 0.9 [facility] x10(3)/[facility] LABORATORY Eosinophils % 2.1 % [facility] LABORATORY Eosinophils Abs 0.2 0.0 - 0.4 [facility] x10(3)/[facility] LABORATORY Basophils % 0.7 % [facility] LABORATORY Basophils Abs 0.0 0.0 - 0.1 [facility] x10(3)/[facility] LABORATORY Immature Gran % 0.70 % [facility] [...] Gran Abs 0.05 (H) 0.00 - 0.04 x10(3)/[facility] LABORATORY Specimen Anatomical Collection Method Collection Time Receive d Time (Source) Location / / Volume Laterality Blood 06/02/2022 8:20 AM 8:25 EDT AM EDT Resulting Agency Comment Spec In Lab Kurt Ames MD HEMATOLOGY ORDERABLES Performing Organization Address City/State/[place] [address] (ABNORMAL) Hemogram (06/02/2022 8:20 AM EDT) Analysis Performed At Patho logist Time Signature WBC 7.2 4.0 - 9.5 [facility] x10(3)/[facility] LABORATORY RBC 2.74 (L) 4.58 - [place] 5.54 [facility] x10(6)/[facility] LABORATORY Hemoglobin 8.7 (L) 13.7 - [facility] 16.5 g/dL [facility] LABORATORY Hematocrit 25.7 (L) 40.5 - [facility] 48.5 % [facility] LABORATORY MCV 93.8 (H) 82.9 - [facility] 93.1 [facility] LABORATORY MCH 31.8 27.5 - [place] 32.1 pg [facility] LABORATORY MCHC 33.9 32.0 - [place] 35.7 g/dL [facility] LABORATORY Platelets 260 145 - 357 [facility] x10(3)/[facility] LABORATORY RDWSD 51.0 (H) 36.0 - [facility] XIAO 45.0 [facility] LABORATORY RDWCV 14.9 (H) 11.4 - [facility] XIAO 13.8 % [facility] LABORATORY MPV 10.0 7.6 - 12.9 [facility] nRBC % Auto 0.0 % [facility] LABORATORY nRBC Abs Auto 0.000 0.000 - [facility] [employer] 0.000 [facility] x10(3)/[facility] LABORATORY Specimen Anatomical Collection Method Collection Time Receive d Time (Source) Location / / Volume Laterality Blood 06/02/2022 8:20 AM 8:25 EDT AM EDT Resulting Agency Comment Spec In Lab Kurt Ames MD HEMATOLOGY ORDERABLES Performing Organization Address City/State/[place] [address] Heparin (unfractionated) Level (06/02/2022 6:30 AM EDT) P athologist Signature Heparin UFH 0.39 IU/mL [facility] LABORATORY Comment: Heparin (anti-Xa) levels should be [...] Organization Address City/State/[place] [address] Heparin (unfractionated) Level (06/02/2022 12:30 AM EDT) athologist Signature Heparin UFH 0.81 IU/mL [facility] LABORATORY Comment: Heparin (anti-Xa) levels should be [...] Address City/State/ZIP Code Phon e Number [address] Magnesium (06/02/2022 12:30 AM EDT) athologist Signature Magnesium 0.83 0.69 - 1.07 [facility] mmol/L [facility] LABORATORY Specimen Anatomical Collection Method Collection Time Receive d Time (Source) Location / / Volume Laterality Blood 06/02/2022 12:30 06/02/2022 AM EDT 12:40 AM EDT Resulting Agency Comment Spec In Lab Mahendra Victor MD CHEMISTRY ORDERABLES Performing Organization Address City/[facility] Phon e Number [address] (ABNORMAL) Basic Metabolic Panel (non-fasting) (06/02/2022 12:30 AM EDT) athologist Signature Glucose Lvl 151 65 - 199 [facility] mg/dL [facility] LABORATORY Comment: Diabetes: [...] City/State/ZIP Code Phon e Number [place] [id number] HOSPITAL LAB[address]ORY Drive (ABNORMAL) Differential, Automated (06/01/2022 7:29 PM EDT) P athologist Signature Neutrophils % 68.8 % [facility] LABORATORY Neutr Abs (ANC) 5.34 1.70 - [facility] 6.10 [facility] x10(3)/[facility] LABORATORY Lymphocytes % 19.6 % [facility] LABORATORY Lymphocytes Abs 1.5 0.9 - 3.2 [facility] x10(3)/[facility] LABORATORY Monocytes % 8.1 % [facility] LABORATORY Monocyte Abs 0.6 0.3 - 0.9 [facility] x10(3)/[facility] LABORATORY Eosinophils % 1.8 % [facility] LABORATORY Eosinophils Abs 0.1 0.0 - 0.4 [facility] x10(3)/[facility] LABORATORY Basophils % 0.8 % [facility] LABORATORY Basophils Abs 0.1 0.0 - 0.1 [facility] x10(3)/[facility] LABORATORY Immature Gran % 0.90 % [facility] [...] Gran Abs 0.07 (H) 0.00 - 0.04 x10(3)/[facility] LABORATORY Specimen Anatomical Collection Method Collection Time Receive d Time (Source) Location / / Volume Laterality Blood 06/01/2022 7:29 PM 7:29 EDT PM EDT Resulting Agency Comment Spec In Lab Kurt Ames MD HEMATOLOGY ORDERABLES Performing Organization Address City/State/[place] [address] (ABNORMAL) Hemogram (06/01/2022 7:29 PM EDT) Analysis Performed At Patho logist Time Signature WBC 7.8 4.0 - 9.5 [facility] x10(3)/[facility] LABORATORY RBC 2.65 (L) 4.58 - [place] 5.54 [facility] x10(6)/[facility] LABORATORY Hemoglobin 8.3 (L) 13.7 - [place] 16.5 g/dL [facility] LABORATORY Hematocrit 24.8 (L) 40.5 - [place] 48.5 % [facility] LABORATORY MCV 93.6 (H) 82.9 - [place] 93.1 [facility] LABORATORY MCH 31.3 27.5 - [place] 32.1 pg [facility] LABORATORY MCHC 33.5 32.0 - [facility] XIAO 35.7 g/dL [facility] LABORATORY Platelets 263 145 - 357 [facility] x10(3[facility] LABORATORY RDWSD 52.8 (H) 36.0 - [place] 45.0 [facility] LABORATORY RDWCV 15.4 (H) 11.4 - [facility] X[facility] 13.8 % [facility] LABORATORY MPV 10.4 7.6 - 12.9 [facility] LABORATORY nRBC % Auto 0.0 % [facility] LABORATORY nRBC Abs Auto 0.000 0.000 - [facility] 0.000 [facility] x10(3)/[facility] LABORATORY Specimen Anatomical Collection Method Collection Time Receive d Time (Source) Location / / Volume Laterality Blood 06/01/2022 7:29 PM 2 7:29 EDT PM EDT Resulting Agency Comment Spec In Lab Kurt Ames MD HEMATOLOGY ORDERABLES Performing Organization Address City/State/ZIP Code Phon e Number [address] Heparin (unfractionated) Level (06/01/2022 7:29 PM EDT) P athologist Signature Heparin UFH 0.81 IU/mL [facility] LABORATORY Comment: Heparin (anti-Xa) levels should be [...] Organization Address City/State/[place] [address] (ABNORMAL) Heparin (unfractionated) Level (06/01/2022 11:32 AM EDT) Patholo gist Method Time Signature Heparin UFH 1.05 IU/mL [facility] (Critical) [facility] LABORATORY Comment: Critical Result called by [...] Organization Address City/State/[place] [address] (ABNORMAL) Differential, Automated (06/01/2022 5:56 AM EDT) [facility] Method Time Signature Neutrophils % 62.7 % [facility] LABORATORY Neutr Abs (ANC) 6.11 (H) 1.70 - [facility] 6.10 [facility] x10(3)/[facility] LABORATORY Lymphocytes % 23.5 % [facility] LABORATORY Lymphocytes Abs 2.3 0.9 - 3.2 [facility] x10(3)/[facility] LABORATORY Monocytes % 10.0 % [facility] LABORATORY Monocyte Abs 1.0 (H) 0.3 - 0.9 [facility] x10(3)/[facility] LABORATORY Eosinophils % 2.2 % [facility] LABORATORY Eosinophils Abs 0.2 0.0 - 0.4 [facility] x10(3)/[facility] LABORATORY Basophils % 0.9 % [facility] LABORATORY Basophils Abs 0.1 0.0 - 0.1 [facility] x10(3)/[facility] LABORATORY Immature Gran % 0.70 [...] Gran Abs 0.07 (H) 0.00 - 0.04 x10(3)/[facility] LABORATORY Specimen Anatomical Collection Method Collection Time Receive d Time (Source) Location / / Volume Laterality Blood 06/01/2022 5:56 AM 6:05 EDT AM EDT Resulting Agency Comment Spec In Lab Arpita Valle MD HEMATOLOGY ORDERABLES Performing Organization Address City/State/Z[place] [address] (ABNORMAL) Hemogram (06/01/2022 5:56 AM EDT) Analysis Performed At Patho logist Time Signature WBC 9.7 (H) 4.0 - 9.5 [facility] x10(3)/[facility] LABORATORY RBC 2.83 (L) 4.58 - [facility] 5.54 [facility] x10(6)/[facility] LABORATORY Hemoglobin 9.0 (L) 13.7 - [facility] 16.5 g/dL [facility] LABORATORY Hematocrit 26.7 (L) 40.5 - [facility] 48.5 % [facility] LABORATORY MCV 94.3 (H) 82.9 - [facility] 93.1 fL [facility] LABORATORY MCH 31.8 27.5 - [facility] 32.1 pg [facility] LABORATORY MCHC 33.7 32.0 - [facility] 35.7 g/dL [facility] LABORATORY Platelets 250 145 - 357 [facility] HOSPITAL x10(3)/[facility] LABORATORY RDWSD 54.3 (H) 36.0 - [facility]0 [facility] LABORATORY RDWCV 15.9 (H) 11.4 - [facility] 13.8 % [facility] LABORATORY MPV 10.5 7.6 - 12.9 [facility] LABORATORY nRBC % Auto 0.0 % [facility] LABORATORY nRBC Abs Auto 0.000 0.000 - [facility] 0.000 [facility] x10(3)/[facility] LABORATORY Specimen Anatomical Collection Method Collection Time Receive d Time (Source) Location / / Volume Laterality Blood 06/01/2022 5:56 AM 2 6:05 EDT AM EDT Resulting Agency Comment Spec In Lab Arpita Valle MD HEMATOLOGY ORDERABLES Performing Organization Address City/State/[place] [address] Heparin (unfractionated) Level (06/01/2022 4:30 AM EDT) athologist Signature Heparin UFH 0.68 IU/mL [facility] LABORATORY Comment: Heparin (anti-Xa) levels should be [...] Organization Address City/State/[place] [address] (ABNORMAL) Urinalysis with reflex Culture (06/01/2022 4:00 AM EDT) Patholo gist Method Time Signature Glucose UA 500 Negative [facility] (Critical) mg/dL [facility] LABORATORY Comment: Urinalysis result NOT critical without a combination of Glucose greater than or equal to 500 mg/dL AND Ketones greate r than or equal to 80 mg/dL Protein UA Negative Negative mg/dL [facility] LABORATORY Bilirubin UA Negative Negative mg/dL [facility] LAB[facility] Nitrite UA Negative Negative [facility] LABORATORY Leukocytes UA Negative Negative [facility] LABORATORY Appearance UA Clear Clear [facility] LABORATORY Spec [place] UA >=1.030 (A) 1.005 - 1.030 [facility] LABORATORY Color UA Yellow Yellow [facility] LABORATORY Culture Reflexed No [facility] LABORATORY Specimen Anatomical Collection Method Collection Time Receive d Time (Source) Location / / Volume Laterality Clean Catch 06/01/2022 4:00 AM 2 4:26 Urine EDT AM EDT Resulting Agency Comment Spec In Lab Mahendra Victor MD URINE ORDERABLES Performing Organization Address City/State/[place] [address] Magnesium (06/01/2022 1:00 AM EDT) P athologist Signature Magnesium 0.93 0.69 - 1.07 [facility] mmol/L [facility] LABORATORY Specimen Anatomical Collection Method Collection Time Receive d Time (Source) Location / / Volume Laterality Blood 06/01/2022 1:00 AM 2 1:37 EDT AM EDT Resulting Agency Comment Spec In Lab Mahendra Victor MD CHEMISTRY ORDERABLES Performing Organization Address City/State/[place] [address] (ABNORMAL) Basic Metabolic Panel (non-fasting) (06/01/2022 1:00 AM EDT) athologist Signature Glucose Lvl 148 65 - 199 [facility] mg/dL [facility] LABORATORY Comment: Diabetes: >=200 mg/dL plus symp toms BUN 23 (H) 10 - 20 mg/dL [facility] LABORATORY Creatinine 0.78 (L) 0.80 - 1.50 mg/dL [facility] LABORATORY Sodium 141 135 - 145 mmol/L [facility] LABORATORY Potassium 4.0 3.5 - 5.0 mmol/L [facility] [...] LABORATORY Calcium 8.6 8.5 - 10.5 mg/dL [facility] LABORATORY Estimated GFR 91 >=60 [...] Organization Address City/State/[place] [address] (ABNORMAL) Differential, Automated (06/01/2022 12:00 AM EDT) athologist Signature Neutrophils % 64.6 % [facility] LABORATORY Neutr Abs (ANC) 5.60 1.70 - [facility] 6.10 [facility] x10(3)/[facility] LABORATORY Lymphocytes % 22.4 % [facility] LABORATORY Lymphocytes Abs 1.9 0.9 - 3.2 [facility] x10(3)/[facility] LABORATORY Monocytes % 9.5 % [facility] LABORATORY Monocyte Abs 0.8 0.3 - 0.9 [facility] x10(3)/[facility] LABORATORY Eosinophils % 2.1 % [facility] LABORATORY Eosinophils Abs 0.2 0.0 - 0.4 [facility] x10(3)/[facility] LABORATORY Basophils % 0.6 % [facility] LABORATORY Basophils Abs 0.0 0.0 - 0.1 [facility] x10(3)/[facility] LABORATORY Immature Gran % 0.80 % [facility] [...] Gran Abs 0.07 (H) 0.00 - 0.04 x10(3)/[facility] LABORATORY Specimen (Source) Anatomical Collection Method Collection Time Re ceived Time Location / / Volume Laterality Blood 06/01/2022 06/01/2022 12:1 0 AM EDT Resulting Agency Comment Spec In Lab Arpita Valle MD HEMATOLOGY ORDERABLES Performing Organization Address City/State/[place] [address] (ABNORMAL) Hemogram (06/01/2022 12:00 AM EDT) Analysis Performed At Patho logist Time Signature WBC 8.7 4.0 - 9.5 [facility] LABORATORY RBC 2.77 (L) 4.58 - [facility] 5.54 [facility] x10(6)/[facility] LABORATORY Hemoglobin 8.6 (L) 13.7 - [facility] 16.5 g/dL [facility] LABORATORY Hematocrit 25.7 (L) 40.5 - [facility] 48.5 % [facility] LABORATORY MCV 92.8 82.9 - [facility] 93.1 [facility] LABORATORY MCH 31.0 27.5 - [facility] 32.1 pg [facility] LABORATORY MCHC 33.5 32.0 - [facility] 35.7 g/dL [facility] LABORATORY Platelets 260 145 - 357 [facility] x10(3)/[facility] LABORATORY RDWSD 51.9 (H) 36.0 - [facility] 45.0 [facility] LABORATORY RDWCV 15.5 (H) 11.4 - [facility] XIAO 13.8 % [facility] LABORATORY MPV 10.4 7.6 - 12.9 [facility] nRBC % Auto 0.0 % [facility] LABORATORY nRBC Abs Auto 0.000 0.000 - [facility] 0.000 [facility] x10(3)/[facility] LABORATORY Specimen (Source) Anatomical Collection Method Collection Time Re ceived Time Location / / Volume Laterality Blood 06/01/2022 06/01/2022 12:1 0 AM EDT Resulting Agency Comment Spec In Lab Arpita Valle MD HEMATOLOGY ORDERABLES Performing Organization Address City/State/Z[place] [address] (ABNORMAL) Differential, Automated (05/31/2022 9:17 PM EDT) P athologist Signature Neutrophils % 59.6 % [facility] LABORATORY Neutr Abs (ANC) 3.98 1.70 - [facility] 6.10 [facility] x10(3)/[facility] LABORATORY Lymphocytes % 27.5 % [facility] LABORATORY Lymphocytes Abs 1.8 0.9 - 3.2 [facility] x10(3)/[facility] LABORATORY Monocytes % 9.1 % [facility] LABORATORY Monocyte Abs 0.6 0.3 - 0.9 [facility] x10(3)/[facility] LABORATORY Eosinophils % 2.4 % [facility] LABORATORY Eosinophils Abs 0.2 0.0 - 0.4 [facility] x10(3)/[facility] LABORATORY Basophils % 0.7 % [facility] LABORATORY Basophils Abs 0.0 0.0 - 0.1 [facility] x10(3)/[facility] LABORATORY Immature Gran % 0.70 % [facility] [...] Gran Abs 0.05 (H) 0.00 - 0.04 x10(3)/[facility] LABORATORY Specimen Anatomical Collection Method Collection Time Receive d Time (Source) Location / / Volume Laterality Blood 05/31/2022 9:17 PM 9:25 EDT PM EDT Resulting Agency Comment Spec In Lab Arpita Valle MD HEMATOLOGY ORDERABLES Performing Organization Address City/State/Z[place] [address] (ABNORMAL) Hemogram (05/31/2022 9:17 PM EDT) Analysis Performed At Patho logist Time Signature WBC 6.7 4.0 - 9.5 [facility] x10(3)/[facility] LABORATORY RBC 2.74 (L) 4.58 - [facility] 5.54 [facility] x10(6)/[facility] LABORATORY Hemoglobin 8.5 (L) 13.7 - [facility] 16.5 g/dL [facility] LABORATORY Hematocrit 25.7 (L) 40.5 - [facility] 48.5 % [facility] LABORATORY MCV 93.8 (H) 82.9 - [facility] 93.1 [facility] LABORATORY MCH 31.0 27.5 - [facility] 32.1 pg [facility] LABORATORY MCHC 33.1 32.0 - [facility] 35.7 g/dL [facility] LABORATORY Platelets 233 145 - 357 [facility] x10(3)/[facility] LABORATORY RDWSD 51.9 (H) 36.0 - [facility] 45.0 [facility] LABORATORY RDWCV 15.3 (H) 11.4 - [facility] 13.8 % [facility] LABORATORY MPV 10.3 7.6 - 12.9 [facility] LABORATORY nRBC % Auto 0.0 % [facility] LABORATORY nRBC Abs Auto 0.000 0.000 - [facility] 0.000 [facility] x10(3)/[facility] LABORATORY Specimen Anatomical Collection Method Collection Time Receive d Time (Source) Location / / Volume Laterality Blood 05/31/2022 9:17 PM 9:25 EDT PM EDT Resulting Agency Comment Spec In Lab Arpita Valle MD HEMATOLOGY ORDERABLES Performing Organization Address City/State/Z[place] [address] Transfuse RBC (05/31/2022 7:36 PM EDT) Regina Hinds MD NURSING TREATMENT ORDERABLES - BLOOD ADMIN Transfuse RBC (05/31/2022 7:36 PM EDT) Regina Hinds MD NURSING TREATMENT ORDERABLES - BLOOD ADMIN UPPER GI ENDOSCOPY (05/31/2022 3:37 PM EDT) Component Value Ref Test Analysis Performed At [facility] Range Method Time Signature UPPER GI [facility] PROVATION ENDOSCOPY Endoscopy Procedure Date: 05/31/2022 3:37 PM ? Patient Name: Koko Zamora ? Date of : 1940 ? Age: 81 ? Order #: [id number] ? Instrument Name: [id number] ? Procedure: ? Upper GI endoscopy Indications: ? Melena, Suspected upper ? gastrointestinal bleeding Providers: ? Giovani Ponce, Torrey Gannon , ? Vani Wei, DION, Juhi Maxwell, ? Alannah Hutchinson, Torres Christensen MD: ?Regina Hinds Medicines: ? Propofol per [...] Procedure Code(s): ? --- Professional --- ? 45076, Esophagogastroduode noscopy, ? flexible, transoral; with control [...] in this report are preliminary and upon cooking chef review may be revised to meet current [...] contrast was not administered. COMPARISON: 05/15/2022 from [facility] FINDINGS: GI Tract: Pre-contrast: No [...] enlarged lymph nodes. Vasculature: Patent common iliac, electronic scale assembler and tester al iliac, and common femoral arteries bilaterally. [...] contrast was not administered. COMPARISON: 05/15/2022 from [facility] FINDINGS: GI Tract: Pre-contrast: No [...] enlarged lymph nodes. Vasculature: Patent common iliac, electronic scale assembler and tester al iliac, and common femoral arteries bilaterally. [...] and Screen Validity (05/31/2022 1:43 PM EDT) [facility] Method Time Signature T&S only valid [facility] LABORATORY Comment: This Type and Screen result is only valid at the [facility] Hospital Specimen Anatomical Collection Method Collection Time Receive d Time (Source) Location / / Volume Laterality Blood 05/31/2022 1:43 PM 2 1:57 EDT PM EDT Resulting Agency Comment Spec In Lab Regina Hinds MD BLOOD BANK ORDERABLES Performing Organization Address City/[facility]/[place] [address] ABORH Recheck Status (05/31/2022 1:43 PM EDT) [facility] Method Time Signature ABORH Type Completed [facility] LABORATORY Specimen Anatomical Collection Method Collection Time Receive d Time (Source) Location / / Volume Laterality Blood 05/31/2022 1:43 PM 2 1:57 EDT PM EDT Resulting Agency Comment Spec In Lab Regina Hinds MD BLOOD BANK ORDERABLES Performing Organization Address City/[facility]/[place]IP [place] [address] Antibody screen (05/31/2022 1:43 PM EDT) [facility] Signature Ab Screen Negative [facility] LABORATORY Expires at 06/03/2022 [facility] 235 on: [facility] LABORATORY Specimen Anatomical Collection Method Collection Time Receive d Time (Source) Location / / Volume Laterality Blood 05/31/2022 1:43 PM 2 1:57 EDT PM EDT Resulting Agency Comment Spec In Lab Regina Hinds MD BLOOD BANK ORDERABLES Performing Organization Address City/[facility]/[place] [address] ABO/Rh Typing (05/31/2022 1:43 PM EDT) P athologist Signature ABORh Type O Pos [facility] LABORATORY Specimen Anatomical Collection Method Collection Time Receive d Time (Source) Location / / Volume Laterality Blood 05/31/2022 1:43 PM 2 1:57 EDT PM EDT Resulting Agency Comment Spec In Lab Regina Hinds MD BLOOD BANK ORDERABLES Performing Organization Address City/[facility]/[place] [address] Prepare RBC (05/31/2022 1:35 PM EDT) P athologist Signature Dispensed? Yes [facility] LABORATORY Specimen Anatomical Collection Method Collection Time Receive d Time (Source) Location / / Volume Laterality Blood 05/31/2022 1:35 PM 2 1:30 EDT PM EDT Regina Hinds MD BLOOD BANK ORDERABLES Performing Organization Address City/[facility]/[place] [address] Prepare RBC (05/31/2022 1:25 PM EDT) P athologist Signature Dispensed? Yes [facility] LABORATORY Specimen Anatomical Collection Method Collection Time Receive d Time (Source) Location / / Volume Laterality Blood 05/31/2022 1:25 PM 2 1:23 EDT PM EDT Regina Hinds MD BLOOD BANK ORDERABLES Performing Organization Address City/[facility] [place] [address] (ABNORMAL) Differential, Automated (05/31/2022 12:44 PM EDT) P athologist Signature Neutrophils % 62.0 % [facility] LABORATORY Neutr Abs (ANC) 4.71 1.70 - [facility] 6.10 [facility] x10(3)/[facility] LABORATORY Lymphocytes % 24.1 % [facility] LABORATORY Lymphocytes Abs 1.8 0.9 - 3.2 [facility] x10(3)/[facility] LABORATORY Monocytes % 10.8 % [facility] LABORATORY Monocyte Abs 0.8 0.3 - 0.9 [facility] x10(3)/[facility] LABORATORY Eosinophils % 1.6 % [facility] LABORATORY Eosinophils Abs 0.1 0.0 - 0.4 [facility] x10(3)/[facility] LABORATORY Basophils % 0.7 % [facility] LABORATORY Basophils Abs 0.0 0.0 - 0.1 [facility] x10(3)/[facility] LABORATORY Immature Gran % 0.80 % [facility] [...] Gran Abs 0.06 (H) 0.00 - 0.04 x10(3)/[facility] LABORATORY Specimen Anatomical Collection Method Collection Time Receive d Time (Source) Location / / Volume Laterality Blood 05/31/2022 12:44 05/31/2022 PM EDT 12:57 PM EDT Resulting Agency Comment Spec In Lab Brittany Ramirez MD HEMATOLOGY ORDERABLES Performing Organization Address City/State/Z[place] [address] (ABNORMAL) Hemogram (05/31/2022 12:44 PM EDT) Analysis Performed At Patho logist Time Signature WBC 7.6 4.0 - 9.5 [facility] x10(3)/[facility] LABORATORY RBC 2.11 (L) 4.58 - [facility] 5.54 [facility] x10(6)/[facility] LABORATORY Hemoglobin 6.9 (L) 13.7 - [facility] 16.5 g/dL [facility] LABORATORY Hematocrit 20.8 (L) 40.5 - [facility] 48.5 % [facility] LABORATORY MCV 98.6 (H) 82.9 - [facility] 93.1 fL [facility] LABORATORY MCH 32.7 (H) 27.5 - [facility] 32.1 pg [facility] MCHC 33.2 32.0 - [facility] 35.7 g/dL [facility] LABORATORY Platelets 255 145 - 357 [facility] x10(3)/[facility] LABORATORY RDWSD 47.7 (H) 36.0 - [facility] 45.0 [facility] RDWCV 13.4 11.4 - [facility] 13.8 % [facility] LABORATORY MPV 10.7 7.6 - 12.9 [facility] LABORATORY nRBC % Auto 0.0 % [facility] LABORATORY nRBC Abs Auto 0.000 0.000 - [facility] 0.000 [facility] x10(3)/[facility] LABORATORY Specimen Anatomical Collection Method Collection Time Receive d Time (Source) Location / / Volume Laterality Blood 05/31/2022 12:44 05/31/2022 PM EDT 12:57 PM EDT Resulting Agency Comment Spec In Lab Brittany Ramirez MD HEMATOLOGY ORDERABLES Performing Organization Address City/State/ZIP Code Phon e Number [place] [id number] HOSPITAL LABORATORY Drive (ABNORMAL) BLOOD GAS 2 VENOUS (05/31/2022 11:24 AM EDT) P athologist Signature pH [place] 7.38 7.32 - [facility] 7.42 [facility] LABORATORY pCO2 [place] 40 (L) 41 - 51 [facility] LABORATORY pO2 [place] 18 (L) 25 - 40 [facility] LABORATORY HCO3 [place] 23.3 mmol/L [facility] LABORATORY BE [place] -1.8 mmol/L [facility] LABORATORY Hgb Blood Gas 7.0 (L) 13.7 - [facility] 16.5 g/dL [facility] LABORATORY O2HB [...] [facility] LABORATORY BGas Source Venous [facility] LABORATORY Specimen Anatomical Collection Method Collection Time Receive d Time (Source) Location / / Volume Laterality Blood 05/31/2022 11:24 05/31/2022 AM EDT 11:24 AM EDT Regina Hinds MD CHEMISTRY ORDERABLES Performing Organization Address City/State/[place] [address] TSH [place] (05/31/2022 11:20 AM EDT) P athologist Signature TSH 1.67 0.27 - 4.20 [facility] mcIU/mL [facility] LABORATORY Comment: Reference Interval (mcIU/mL): Females: ??First Trimester: 0.23-3.88 ??Second Trimester: 0.22-3.90 ??Third Trimester: 0.44-4.66 Specimen Anatomical Collection Method Collection Time Receive d Time (Source) Location / / Volume Laterality Blood 05/31/2022 11:20 05/31/2022 AM EDT 11:28 AM EDT Resulting Agency Comment Spec In Lab Regina Hinds MD CHEMISTRY ORDERABLES Performing Organization Address City/State/[place] [address] XR Chest PA & [...] ? Electronically signed by: Alan strong MD, [facility] ([phone]), at 05/31/2022 11:33 AM Narrative 05/31/2022 11:33 [...] athologist Signature Lipase 41 0 - 60 [facility] unit/L [facility] LABORATORY Specimen Anatomical Collection Method Collection Time Receive d Time (Source) Location / / Volume Laterality Blood Venous Draw / 05/31/2022 10:50 05/31/2022 Unknown AM EDT 11:11 AM EDT Resulting Agency Comment Spec In Lab Zain Champion MD CHEMISTRY ORDERABLES Performing Organization Address City/State/Z[place] [address] (ABNORMAL) Hepatic Function Panel (05/31/2022 10:50 AM EDT) Analysis Performed At Patho logist Time Signature Total Protein 6.4 6.1 - 8.0 [facility] g/dL [facility] LABORATORY Albumin 4.1 3.2 - 5.2 [facility] g/dL [facility] LABORATORY AST 24 0 - 39 [facility]L [facility] LABORAT[facility] ALT 44 0 - 55 [facility] unit/L [facility] LABORATORY Alk Phos 63 40 - 130 [facility] unit/L [facility] LABORATORY Total <0.2 (L) 0.2 - 1.3 [facility] Bilirubin mg/dL [facility] LABORATORY Bili, Direct 0.1 0.0 - 0.3 [facility] mg/dL [facility] LABORATORY Specimen Anatomical Collection Method Collection Time Receive d Time (Source) Location / / Volume Laterality Blood Venous Draw / 05/31/2022 10:50 05/31/2022 Unknown AM EDT 11:11 AM EDT Resulting Agency Comment Spec In Lab Zain Champion MD CHEMISTRY ORDERABLES Performing Organization Address City/State/ZIP Code Phon e Number [address] Blue Tube HOLD (05/31/2022 10:50 AM EDT) P athologist Signature Blue Hold Sample in [facility] lab. [facility] LABORATORY Specimen Anatomical Collection Method Collection Time Receive d Time (Source) Location / / Volume Laterality Blood Venous Draw / 05/31/2022 10:50 05/31/2022 Unknown AM EDT 11:05 AM EDT Brittany Ramirez MD HEMATOLOGY ORDERABLES Performing Organization Address City/[facility]/ZIP Code Phon e Number [address] (ABNORMAL) Differential, Automated (05/31/2022 10:50 AM EDT) P athologist Signature Neutrophils % 66.9 % [facility] LABORATORY Neutr Abs (ANC) 5.58 1.70 - [facility] 6.10 [facility] x10(3)/[facility] LABORATORY Lymphocytes % 22.2 % [facility] LABORATORY Lymphocytes Abs 1.8 0.9 - 3.2 [facility] x10(3)/[facility] LABORATORY Monocytes % 7.8 % [facility] LABORATORY Monocyte Abs 0.6 0.3 - 0.9 [facility] x10(3)/[facility] LABORATORY Eosinophils % 1.2 % [facility] LABORATORY Eosinophils Abs 0.1 0.0 - 0.4 [facility] x10(3)/[facility] LABORATORY Basophils % 0.7 % [facility] LABORATORY Basophils Abs 0.1 0.0 - 0.1 [facility] x10(3)/[facility] LABORATORY Immature Gran % 1.20 % [facility] [...] Gran Abs 0.10 (H) 0.00 - 0.04 x10(3)/[facility] LABORATORY Specimen Anatomical Collection Method Collection Time Receive d Time (Source) Location / / Volume Laterality Blood 05/31/2022 10:50 05/31/2022 AM EDT 11:03 AM EDT Resulting Agency Comment Spec In Lab Brittany Ramirez MD HEMATOLOGY ORDERABLES Performing Organization Address City/State/Z[place] [address] (ABNORMAL) Hemogram (05/31/2022 10:50 AM EDT) Analysis Performed At Patho logist Time Signature WBC 8.3 4.0 - 9.5 [facility] x10(3)/[facility] LABORATORY RBC 2.26 (L) 4.58 - [facility] 5.54 [facility] x10(6)/[facility] LABORATORY Hemoglobin 7.4 (L) 13.7 - [facility] 16.5 g/dL [facility] LABORATORY Hematocrit 22.3 (L) 40.5 - [facility] 48.5 % [facility] LABORATORY MCV 98.7 (H) 82.9 - [facility] 93.1 fL [facility] LABORATORY MCH 32.7 (H) 27.5 - [facility] 32.1 [facility] LABORATORY MCHC 33.2 32.0 - [place] 35.7 g/dL [facility] LABORATORY Platelets 283 145 - 357 [facility] x10(3)/[facility] LABORATORY RDWSD 47.0 (H) 36.0 - [place] 45.0 [facility] LABORATORY RDWCV 13.4 11.4 - [facility] 13.8 % [facility] LABORATORY MPV 10.8 7.6 - 12.9 [facility] nRBC % Auto 0.0 % [facility] LABORATORY nRBC Abs Auto 0.000 0.000 - [facility] 0.000 [facility] x10(3)/[facility] LABORATORY Specimen Anatomical Collection Method Collection Time Receive d Time (Source) Location / / Volume Laterality Blood 05/31/2022 10:50 05/31/2022 AM EDT 11:03 AM EDT Resulting Agency Comment Spec In Lab Brittany Ramirez MD HEMATOLOGY ORDERABLES Performing Organization Address City/State/ZIP Code Phon e Number [address] Phosphorus (05/31/2022 10:50 AM EDT) P athologist Signature Phosphorus 3.2 2.5 - 4.5 [facility] mg/dL [facility] LABORATORY Specimen Anatomical Collection Method Collection Time Receive d Time (Source) Location / / Volume Laterality Blood 05/31/2022 10:50 05/31/2022 AM EDT 11:03 AM EDT Resulting Agency Comment Spec In Lab Regina Hinds MD CHEMISTRY ORDERABLES Performing Organization Address City/State/ZIP Code Phon e Number [address] Magnesium (05/31/2022 10:50 AM EDT) P athologist Signature Magnesium 0.93 0.69 - 1.07 [facility] mmol/L [facility] Specimen Anatomical Collection Method Collection Time Receive d Time (Source) Location / / Volume Laterality Blood 05/31/2022 10:50 05/31/2022 AM EDT 11:03 AM EDT Resulting Agency Comment Spec In Lab Regina Hinds MD CHEMISTRY ORDERABLES Performing Organization Address City/State/ZIP [place] [address] [facility] [address] (ABNORMAL) pro-Brain Natriuretic Peptide (05/31/2022 10:50 AM EDT) athologist Signature ProBNP 1,077 (H) <=449 [facility] pg/mL [facility] Specimen Anatomical Collection Method Collection Time Receive d Time (Source) Location / / Volume Laterality Blood 05/31/2022 10:50 05/31/2022 AM EDT 11:03 AM EDT Resulting Agency Comment Spec In Lab Regina Hinds MD CHEMISTRY ORDERABLES Performing Organization Address City/State/Z[place] [address] [facility] [address] Troponin (05/31/2022 10:50 AM EDT) athologist Signature Troponin-T <0.01 0.00 - 0.00 [facility] ng/mL [facility] Comment: The [...] additional sample may be indicated. Reference: Third [place] Definition of Myocardial Infarction. Journal of the [place] [employer] 2012;60:1581-98 Specimen Anatomical Collection Method Collection Time Receive d Time (Source) Location / / Volume Laterality Blood 05/31/2022 10:50 05/31/2022 AM EDT 11:03 AM EDT Resulting Agency Comment Spec In Lab Regina Hinds MD CHEMISTRY ORDERABLES Performing Organization Address City/State/[place] [address] (ABNORMAL) Basic Metabolic Panel (non-fasting) (05/31/2022 10:50 AM EDT) P athologist Signature Glucose Lvl 223 (H) 65 - 199 [facility] mg/dL [facility] Comment: Diabetes: >=200 mg/dL plus symp toms BUN 39 (H) 10 - 20 mg/dL [facility] Creatinine 0.91 0.80 - 1.50 mg/dL [facility] Sodium 140 135 - 145 mmol/L [facility] Potassium 4.1 3.5 - 5.0 mmol/L [facility] [...] LABORATORY Calcium 9.1 8.5 - 10.5 mg/dL [facility] Estimated GFR 86 >=60 mL/min/1.73 m?? [facility] Comment: This patient's estimated GFR was calcula edde using the 2020 CKD-EPI equation. The estimated [...] Organization Address City/State/[place] [address] EKG 12 Lead (05/31/2022 10:11 AM EDT) Component Value Ref Range Test Analysis Performed Pathologis t Method Time At Signature Ventricular rate 106 BPM MUSE SYSTEM QRS Duration 122 ms MUSE SYSTEM Q-T Interval 368 ms MUSE SYSTEM QTC Calculated 488 ms MUSE SYSTEM (Bezet) Calculated R [place] -43 degrees MUSE SYSTEM Calculated T [place] 109 degrees MUSE SYSTEM INTERPRETATION Atrial fibrillation [...] erpretation Confirmed by fellow MD Mike, [place] ([id number]) on 022 8:36:21 PM Confirmed by MD [...] Admin Adt)1752 (Given - Provider: Angella Floyd RN)2108 (Given - Provider: Raven Barbour RN) 08 (Given - Provider: Trinidad Saenz RN) 40 mg, Intravenous, 2 TIMES DAILY, First dose on Fri05/31/22 at 1436, Until Discontinued pantoprazole EC (Protonix) tablet 40 mg 1645 (Not Given - Provider: Trinidad Saenz RN - Reason: Contraindicated - Comment: received AM dose this morning IVP) 0811 (Given - Provider: Trinidda Saenz RN) 40 mg, Oral, DAILY, First dose on Fri at 1645, Until Discontinued, DO NOT CRUSH OR OPEN, Routine rivaroxaban (Xarelto) tablet 20 mg 114 (Given - Provider: Maranda Ribeiro RN) 20 [...] Discontinued, Routine tamsulosin (Flomax) capsule 0.4 mg 1417 (Given - Provider: Trinidad Saenz RN) 0812 [...] - Less than 0.1 international unit/mL: Ad 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
Routine documented in this encounter Care Teams Bareback Rider Relationship Specialty Start Date End Date Abby Das MD PCP - General 10/02/[address] [place] [address] [place] [phone] documented as of this encounter
--- OUTSIDE RECORDS SUMMARY | 2022-08-05 09:00 | XMS_ITS | Encounter Summary ---
:1940 Author Organization [facility] [place] [address] Care Team Providers Name Role Phone Bobby Das MD Primary Care Provider Reason for Referral Consultation (Routine) - Closed Specialty Diagnoses / Referred By Contact Referred To Contact Procedures Cardiac Rehabilitation Diagnoses HFrEF (heart failure with reduced ejection fraction) Coronary artery disease involving [place] coronary artery of [place] heart without angina pectoris Alan Reid Cardiac Rehab, MD Kurt [address] [place], [place] CARDIOLOGY [address] [place] [address] Referral ID Status Reason Start Date Expiration Date Visits V isits Requested Authorized [id number] Closed Consult, 06/20/2022 12/17/2022 36 36 Test & Treat Encounter Details Date Type Department Care Team Description 06/20/2022 Orders Only Cardiology at [facility] Alan Reid HFrEF (heart failure with re duced ejection fraction); [facility] MD Kurt Coronary artery disease involving [place] coronary artery of [place] heart [place] [address] CARDIOLOGY [phone] [place], [place] [address] (Wo rk) Social History Tobacco [...] TH Visit (TeleHealth) Gastroenterology Dixon Collins MD [facility] GASTROENTEROLOGY DEPT [place], [place] [address] (Wo rk) 09/05/2022 Appointment Cardiology Trinity Reid MD [facility] CARDIOLOGY [place], [place] [address] (Wo rk) 09/05/2022 Office Visit Cardiology Trinity Reid MD [facility] CARDIOLOGY [place], [place] [address] (Wo rk) 10/02/2022 Clinical Support Dermatology Thai Lynn MD [facility] DR JENNY BILLY-DERMAT [place]LOG[place], [place] [address] (Wo rk) 10/02/2022 Procedure visit Dermatology Jace Lynn MD [facility] DR JENNY BILLY-DERMAT [place], [place] [address] (Wo rk) Scheduled Referrals Name Type Priority Associated Diagnoses Order S chedule Referral to Outpatient Referral Routine HFrEF (heart failure Ordered: Cardiac Rehab with reduced 06/20/2022 ejection fractio n) Coronary artery disease involving [place] coronary artery of [place] heart without angina pectoris documented as of this encounter Visit Diagnoses Diagnosis HFrEF (heart failure with reduced ejecti on fraction) Coronary artery disease involving [place] coronary artery of [place] heart without angina pectoris documented in this encounter Care Teams Christmas Tree Grader Relationship Specialty Start Date End Date Bobby Das MD PCP - General 10/02/[address] [place] [address] [place] [phone] documented as of this encounter
--- OUTSIDE RECORDS SUMMARY | 2022-08-05 09:00 | XMS_ITS | Encounter Summary ---
:1940 Author Organization [facility] [place] [address] Care Team Providers Name Role Phone Bobby Das MD Primary Care Provider Encounter Details Date Type Department Care Team Description 06/23/2022 Telephone Gastroenterology at [facility] Alan August MD [facility] [place] [address] GASTROENTEROLOGY DEPT [phone] [place], [place] [address] (Wo rk) Social History Tobacco [...] Date: 06/23/2022 Time: 2:27 AM Referring Location: [facility] Referring Provider: Shahram Urena DC [...] TH Visit (TeleHealth) Gastroenterology Dixon Collins MD [facility] GASTROENTEROLOGY DEPT [place], [place] [address] ( rk) 09/05/2022 Appointment Cardiology Trinity Reid MD [facility] CARDIOLOGY [place], [place] [address] ( rk) 09/05/2022 Office Visit Cardiology Trinity Reid MD [facility] CARDIOLOGY [place], [place] [address] ([facility]) 10/02/2022 Clinical Support Dermatology Thai Lynn MD [facility] DR JENNY BILLY-DERMAT [place], [place] [address] (Wo rk) 10/02/2022 Procedure visit Dermatology Jace Lynn MD [facility] DR JENNY BILLY-DERMAT [place], [place] [address] (Wo rk) documented as of this encounter Visit Diagnoses Not on filedocumented in this encounter Care Teams Balance Truer Relationship Specialty Start Date End Date Bobby Das MD PCP - General 10/02/[address] [place] [address] [place] [address] documented as of this encounter
--- OUTSIDE RECORDS SUMMARY | 2022-08-05 09:00 | XMS_ITS | Encounter Summary ---
:1940 Author Organization [facility] [place] [address] Care Team Providers Name Role Phone Bobby Das MD Primary Care Provider Reason for Referral Diagnostic Test (Routine) - Authorized Specialty Diagnoses / Procedures Referred By Contact Refer red To Contact Cardiology Diagnoses HFrEF (heart failure with reduced ejection fraction) Alan Reid MD [facility] Non-Inv Card Lab Procedures [place]chocardi[place] [address] [place] [address] Fax: Referral ID Status Reason Start Expiration Visits Visits Date Date Requested Authorized [id number] Authorized Specialty 06/13/2022 06/13/2023 1 1 Service Requested Reason for Visit Consultation (Routine) - Closed Specialty Diagnoses / Procedures Referred By Contact Refer red To Contact Cardiology Diagnoses HFrEF (heart failure with reduced ejection fraction) Paroxysmal atrial fibrillation Post-hospital follow-up, s/p PCI with stenting, heart failure Nasrin Parra PA [facility] Cardiology [address] [place] [address] [place] [address] [place] [address] Referral ID Status Reason Start Date Expiration Date Visits V isits Requested Authorized [id number] Closed Consult, 05/21/2022 05/21/2023 1 1 Test & Treat Encounter Details Date Type Department Care Team Description 06/13/2022 Office Visit Cardiology at [facility] Alan Reid Coronary artery disease invo [place] coronary artery of [place] heart without angina pectoris; [facility] MD Kurt HFrEF (heart failure with reduced ejecti on fraction); Drive [facility] P[place] [address] CARDIOLOGY [phone] [place], [place] [address] Social History Tobacco Use Types [...] from the original note were not included. [facility] [place] [address] CARDIOLOGY OUTPATIENT PROGRESS NOTE PRIMARY CARE PROVIDER: Bobby Das MD REFERRING PROVIDER: Nasrin Parra PROBLEM LIST: Patient Active Problem List Diagnosis ??? Coronary artery disease involving [place] coronary artery of [place] heart without angina pectoris 05/20/22 Cath * [...] valve prolapse) s/p repair Surgery done at [facility] in 2000 ??? Hypertriglyceridemia ??? Adhesive [...] 3 ??? fluticasone propionate (FLONASE) 50 mcg/actuation [place], Suspension 1 spray by Each Nare route [...] healing well. Markedly diminished left radial pulse. MORTARMAN: Normal mentation. Psych: Appropriate affect. Labs: Lab [...] device therapy possiblyincluding AV node ablation and COMPUTER SCIENCE TEACHER-D. Coronary artery disease involving [place] coronary artery of [place] heart without angina pectoris His coronary disease [...] for consideration of AV node ablation and COMPUTER SCIENCE TEACHER-D Patient Instructions ??? Your new medication is [...] for consideration of AV node ablation and COMPUTER SCIENCE TEACHER-D Assessment & Plan Note - Alan Reid MD - 06/13/2022 10:22 AM EDT Associated Problem(s): Coronary artery disease involving [place] coronary artery of [place] heart without angina pectoris His coronary disease [...] device therapy possiblyincluding AV node ablation and COMPUTER SCIENCE TEACHER-D. documented in this encounter Plan of Treatment Upcoming Encounters Date Type Specialty Care Team Description 08/08/2022 TH Visit (TeleHealth) Gastroenterology Dixon Collins MD [facility] GASTROENTEROLOGY DEPT [place], [place] [address] (Wo rk) 09/05/2022 Appointment Cardiology Trinity Reid MD [facility] CARDIOLOGY [place], [place] [address] (Wo rk) 09/05/2022 Office Visit Cardiology Trinity Reid MD [facility] CARDIOLOGY [place], [place] [address] (Wo rk) 10/02/2022 Clinical Support Dermatology Thai Lynn MD [facility] DR JENNY BILLY-DERMAT [place], [place] [address] (Wo rk) 10/02/2022 Procedure visit Dermatology Jace Lynn MD [facility] DR JENNY BILLY-DERMAT [place], [place] [address] (Wo rk) Scheduled Orders Name Type Priority Associated Order Schedule Diagnoses Echocardiogram Echocardiography Routine HFrEF (heart Expected: Transthoracic failure with 08/13/2022, reduced ejection Expires: fraction) 02/12/2023 documented as of this encounter Visit Diagnoses Diagnosis Coronary artery disease involving [place] coronary artery of [place] heart without angina pectoris HFrEF (heart failure with reduced ejecti on fraction) Permanent atrial fibrillation Atrial fibrillation documented in this encounter Care Teams Entry Level Recruiter Relationship Specialty Start Date End Date Bobby Das MD PCP - General 10/02/[address] [place] [address] [place] [address] documented as of this encounter
--- OUTSIDE RECORDS SUMMARY | 2022-08-05 09:01 | XMS_ITS | Encounter Summary ---
:1940 Author Organization [facility] Address [facility] [place] [address] Care Team Providers Name Role Phone Bobby Das MD Primary Care Provider Encounter Details Date Type Department Care Team Description 05/31/2022 Office Visit Vascular Surgery at [facility]; [facility]BS[facility] Atrial fibrillation, unspecified type; [facility] SOB (shortness of breath) Drive [place] V[place] SURGERY [address] [place] [id number] [phone] Social History Tobacco Use Types Packs/Day Years [...] onset Afib who presents in transfer from [facility] with acute limb ischemia of the LLE.??The [...] emergently went to the OR for L CARTOGRAPHY SUPERVISOR transverse arteriotomy and primary repair, thromboembolectomy of L SFA/PFA/CARTOGRAPHY SUPERVISOR, reperfusion venous drainage for 250 cc, [...] ND, no palpable pulsatile masses Extremity - [place], warm, no ulceration, brisk capillary refill, left [...] Gastroenterology Dixon Collins MD [facility] GASTROENTEROLOGY DEPT [place] [phone] (Wo rk) 09/05/2022 Appointment Cardiology Trinity Reid MD [facility] [address] [place], [place] [address] (Wo rk) 09/05/2022 Office Visit Cardiology Trinity Reid MD [facility] [address] [place], [place] [address] (Wo rk) 10/02/2022 Clinical Support Dermatology Thai Lynn MD [facility] DR JENNY BILLY-DERMAT [place], [place] [address] (Wo rk) 10/02/2022 Procedure visit Dermatology Jace Lynn MD [facility] DR JENNY BILLY-DERMAT [place], [place] [address] (Wo rk) documented as of this encounter Visit Diagnoses Diagnosis Dizzy Dizziness and giddiness Atrial fibrillation, unspecified type SOB (shortness of breath) Shortness of breath documented in this encounter Care Teams Stripper Machine Operator Relationship Specialty Start Date End Date Bobby Das MD PCP - General 10/02/[address] [place] [address] [place] [phone] documented as of this encounter
--- OUTSIDE RECORDS SUMMARY | 2022-08-05 09:01 | XMS_ITS | Encounter Summary ---
:1940 Author Organization [place] [address] Care Team Providers Name Role Phone Bobby Das MD Primary Care Provider Reason for Referral Diagnostic Test (Routine) - Closed Specialty Diagnoses / Procedures Referred By Contact Refer red To Contact Cardiology Diagnoses Paroxysmal atrial fibrillation Nasrin Parra PA [facility] Non-Inv Card Lab Procedures Ziopatch 48 Hrs-15 Days [facility] [place] [address] [place] [address] Fax: Referral ID Status Reason Start Date Expiration Date Visits V isits Requested Authorized [id number] Closed Specialty 05/21/2022 10/21/2022 1 1 Service Requested Reason for Visit Auth/Cert Specialty Diagnoses / Procedures Referred By Contact Refer red To Contact Diagnoses Limb ischemia LLE thrombus Fito Summers MD [facility] [place] [address] Referral ID Status Reason Start Date Expiration Date Visits Requ ested Visits Authorized [id number] 1 1 Encounter Details Date Type Department Care Team Description 05/21/2022 Hospital Encounter Non-Invasive Paroxysma l atrial [place] [address] Social History Tobacco Use Types Packs/Day [...] 04/12/20 21 (FLONASE) 50 mcg/actuation Nare route [place], Suspension daily as needed. fluorouraciL (EFUDEX) 5 [...] MD [facility] GASTROENTEROLOGY DEPT [place], [place] [address] (Wo rk) 09/05/2022 Appointment Cardiology Trinity Reid MD [facility] CARDIOLOGY [place], [place] [address] (Wo rk) 09/05/2022 Office Visit Cardiology Trinity Reid MD [facility] CARDIOLOGY [place], [place] [address] (Wo rk) 10/02/2022 Clinical Support Dermatology Thai Lynn MD [facility] DR JENNY BILLY-DERMAT [place]LOGY [place], [place] [address] (Wo rk) 10/02/2022 Procedure visit Dermatology Jcae Lynn MD [facility] DR JENNY BILLY[place]DERMAT [place], [place] [address] (Wo rk) documented as of [...] fibrillation documented in this encounter Care Teams Salesperson [employer] Relationship Specialty Start Date End Date Bobby Das MD PCP - General 10/02/[address] [place] [address] [place] [phone] documented as of this encounter
--- OUTSIDE RECORDS SUMMARY | 2022-08-05 09:01 | XMS_ITS | Encounter Summary ---
:1940 Author Organization [facility] [place] [address] Care Team Providers Name Role Phone Bobby Das MD Primary Care Provider Reason for Referral Consultation (Routine) - Authorized Specialty Diagnoses / Procedures Referred By Contact Refer red To Contact Diagnoses Non-ST elevation myocardial infarction (NSTEMI) Limb ischemia Nasrin Parra PA [facility] Tobacco Treatment [facility] D R [facility] [place] [address] [place] [address] Referral ID Status Reason Start Date Expiration Visits Visits Date Requested Authorized [id number] Authorized Consult, 05/21/2022 05/21/2023 1 1 Test & Treat iagnostic Test (Routine) - Closed Specialty Diagnoses / Procedures Referred By Contact Refer red To Contact Cardiology Diagnoses Paroxysmal atrial fibrillation Nasrin Parra PA [facility] Non-Inv Card Lab Procedures [place] 48 Hrs-15 Days [facility] [place] [address] [place] [address] Fax: Referral ID Status Reason Start Date Expiration Date Visits V isits Requested Authorized [id number] Closed Specialty 05/21/2022 10/21/2022 1 1 Service Requested Consultation (Routine) - Closed Specialty Diagnoses / Procedures Referred By Contact Refer red To Contact Cardiology Diagnoses HFrEF (heart failure with reduced ejection fraction) Paroxysmal atrial fibrillation Post-hospital follow-up, s/p PCI with stenting, heart failure Nasrin Parra PA [facility] Cardiology 4a [facility] D R [facility] [place] [address] [place] [address] Referral ID Status Reason Start Date Expiration Date Visits V isits Requested Authorized [id number] Closed Consult, 05/21/2022 05/21/2023 1 1 Test & Treat iagnostic Test (Routine) - Authorized Specialty Diagnoses / Procedures Referred By Contact Refer red To Contact Diagnoses Limb ischemia Nasrin Parra PA [facility] Vascular Lab 3v Procedures JOSSELYN, legs, multiple levels [facility] [place] [address] [place] [address] Referral ID Status Reason Start Expiration Visits Visits Date Date Requested Authorized [id number] Authorized Specialty 05/21/2022 05/21/2023 1 1 Service Requested [facility] (Routine) - Authorized Specialty Diagnoses / Procedures Referred By Contact Refer red To Contact Diagnoses Limb ischemia Fito Summers MD [facility] [place] SURGERY [address] [place] [address] [address] Fax: Referral ID Status Reason Start Date Expiration Visits Visits Date Requested Authorized [id number] Authorized Consult, 05/21/2022 11/17/2022 999 999 Test & Treat Reason for Visit Reason Comments Left Leg Pain Auth/Cert Specialty Diagnoses / Procedures Referred By Contact Refer red To Contact Diagnoses Limb ischemia LLE thrombus Fito Summers MD [facility] [place] [address] Referral ID Status Reason Start Date Expiration Date Visits Requ ested Visits Authorized [id number] 1 1 Encounter Details Date Type Department Care Team Description 05/15/2022 - Hospital Intermediate Cardiac Ravi Summers MD [facility] [place] [address] Atrial fibrillation, unspecified type; 05/21/2022 Encounter Care Unit Wellington Gerard MD [facility] [place] [address] Non-ST elevation myocardial infarction ( NSTEMI); [facility] isch emme; [facility] HFrEF (heart failure with re duced ejection fraction); [facility] [place] [phone] Social History Tobacco Use Types Packs/Day Years [...] starting at 630 this morning he presented PRR H where he was placed on heparin. [...] went to the OR for L COLLECTION CORRESPONDENT transverse arteriotomy and primary repair, thromboembolectomy of L SFA/PFA/COLLECTION CORRESPONDENT, reperfusion venous drainage for 250 cc, and [...] Discharge Condition: Good Discharge to: Home with [facility] [place] [address] Future Appointments and Orders Future Appointments and Orders Future Appointments Provider Department Dept Phone 05/23/2022 10:30 AM Loretta Cohen MD Dermatology at [facility] Arrive at: Correctional Case Manager [address] [place] [address] 06/07/2022 1:30 PM Gail Rae APRN Vascular Surgery at [facility] Arrive at: Correctional Case Manager Area [phone] 06/13/2022 7:30 AM Edson Lagos [place] Vascular Lab at [facility] Arrive at: Correctional Case Manager Area [phone] 06/13/2022 8:00 AM Fito Summers MD Vascular Surgery at [facility] Arrive at: Correctional Case Manager Area 3V [phone] 06/13/2022 10:00 AM Alan Reid MD Cardiology at [facility] Arrive at: Correctional Case Manager Area 4A [phone] Future Orders Complete By Nadia Brothers 48 Hrs-15 Days [[id number] CPT(R)] 05/21/2022 11/20/2022 Process Instructions: Scheduling Instructions: Comments: Questions: Does the patient have a pacemaker? If yes provide HI/LO settings: Apply for 7 or 14 days?: 7 Where will study be performed?: [facility] Clin[facility] JOSSELYN, legs, multiple levels [VAS8 Custom] 06/21/2022 (Approximate) 12/21/2022 Process Instructions: There is no in-house vascular pathology lab technician available on weeknights (5pm-8am), weekends, or holidays. IF THIS IS A REQUEST FOR AN EMERGENT STUDY DURING THOSE HOURS, please have the senior provider responsible for the patient page the Vascular Surgery Fellow/Senior Resident secondary school teacher librarian to discuss options. Scheduling Instructions: Questions: Indication for study/signs & symptoms: ALI s/p L fem cutdown with thromboembolectomy Question to be answered: Perfusion to feet? Please check toe pressure Preferred location?: [facility] Referral to Cardiology [...] Koko Zamora for admission to Home Health. [facility] [address] (home) Date of : 1940 Inpatient DOCUMENTATION FOR VNA SERVICES (INCLUDING THOSE PATIENTS WITH MEDICARE COVERAGE REQUIRING HOME VNA SERVICES AND/OR HOSPICE SERVICES) PATIENT'S LOCATION: Koko Zamora [address] [phone] (home) Cell: No relevant phone numbers on file. Induction Heating Equipment Setter's Name: Koko In discussion with the attending physician, it is certified that this patient is under their care and that they, or a Nurse Practitioner,Clinical Nurse specialist or Physician Club Concierge who is working directly with them, had [...] for managing ADL's. HOME HEALTH CARE AGENCY: [facility] [address] [place] [id number] Start of care: Within 24 to 48 [...] obtained from this patient'sPCP: Bobby Das MD [address] [place] [address] / [facility] [address] All A agencies which cover the [...] For any problems or questions please call [phone] For issues on weeknights after 5pm and weekends please call [phone] and ask for the Vascular Fellow secondary school teacher librarian. JOSEE Santiago Vascular Surgery 05/21/2022 documented in [...] For any problems or questions please call [phone] For issues on weeknights after 5pm and weekends please call [phone] and ask for the Vascular Fellow secondary school teacher librarian. documented in this encounter Medications at Time [...] 04/12/20 21 (FLONASE) 50 mcg/actuation Nare route [place], Suspension daily as needed. fluorouraciL (EFUDEX) 5 [...] status, full code. JOSEE Santiago 05/21/2022 Pager: [phone] JoseeBrannon gamino, PT - 05/21/2022 10:35 AM EDT [...] plan as stated. Time IN / OUT: 5076-3848 Total Minutes, Physical Therapy: 25 Billing Code: 2 TA Brannon Isaacs DPT Pager: [phone] Physical Therapy Inpatient Rehabilitation Department Wellington Jean [...] 04/17/2021 in Pain and Spine Center at [facility] Weight 79.8 kg (175 [...] and plan of care per Dr. Mcnamara (solution professional). 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 [...] Hosp-Admission (Current) from 05/15/2022 in 4 [facility] Office Visit from 04/17/2021 in Pain and Spine Center at [facility] Weight 79.8 kg (175 [...] findings andplan of care per Dr. Mcnamara (solution professional). Please refer to her note above for [...] a mitral repair in 2000 (not at [facility]) with no CAD at [...] AF and the first documented HR at [facility] was 125 bpm (presented [...] clinic. We will continue to follow. Dottie Trent APRN - 05/20/2022 8:34 AM EDT Vascular [...] management following Dottie Hill APRN 05/20/2022 Pager: [phone] Laney Atkins RN - 05/20/2022 1:14 AM [...] 05/20/2022 1:09 AM EDT Pt. Transferred to [facility]. RN accompanied patient to floor and handed off to [facility] RN Dottie Hill APRN - 05/19/2022 10:02 [...] Recent Labs 05/19/22 0326 05/18/22 0334 05/17/22 033 WBC 7.4 8.8 10.4* HGB 12.1* 11.2* [...] management following Dottie Hill APRN 05/19/2022 Pager: [phone] mily Cornell RN - 05/19/2022 6:28 AM EDT OUTCOME EVALUATION NOTE: OUTCOME SUMMARY: Patient AOx4, VSS on RA. Afib on tele. HR controlled w/ PRN metop, given x2. Denies CP, SOB, n/v. See flowsheets for NVC. Dressings to LLE CDI, prevena WV to groin intact. Voiding to urinal. LBM AMMUNITION STORAGE SUPERINTENDENT, patient stating he will maybe try the [...] LLE C/D/I. Incisions to LLE WDL and MARKET DEVELOPMENT SPECIALIST. Denies n/t toBLE. 2+ dorsal pulses noted. Heparin drip infusing at 1200 units/hr. UFH within therapeutic range, next labs due with morning labs. Voiding adequately without difficulty to bedside urinal. LBM AMMUNITION STORAGE SUPERINTENDENT. Up to chair this AM with nursing staff. Worked with PT, tolerated well. Diet changed to regular at 1800.Plan is for cardiac cath on Friday. PLAN MOVING FORWARD: Bleeding precautions Pain management neurovascular checks PT/OT bolt labeler INDIVIDUALIZED FALL PREVENTION INTERVENTIONS: Patient-specific fall [...] mL Intravenous BID ??? PHENobarbitaL 0.12 mg/kg/dose (Lyons) Oral BID ??? thiamine 100 mg Oral [...] management following Dottie Hill APRN 05/18/2022 Pager: [phone] Brannon Isaacs, PT - 05/18/2022 10:00 AM [...] [facility] MAIN OR Social History: Pt lives [...] in this evaluation. Time IN / OUT: 6327-9393 Total Minutes, Physical Therapy: 30 Billing Code: Basilio Isaacs, PT Pager: [phone] Physical Therapy Inpatient Rehabilitation Department Emily Sauceda RN - 05/18/2022 4:34 AM EDT OUTCOME EVALUATION NOTE: OUTCOME SUMMARY: Patient AOx4, VSS on 2LNC. Afib on tele. HR above 120, MD aware, PRN IV metop given x1, HR returned to 90's-low 100's. Denies CP, SOB, n/v. See flowsheets for NVC. Dressings to LLE CDI, prevena WV to groin intact. Voiding to urinal. LBM AMMUNITION STORAGE SUPERINTENDENT. Heparin gtt therapeutic. Pain controlled. Patient sleeping [...] adequately without difficulty to bedside urinal. LBM AMMUNITION STORAGE SUPERINTENDENT. Patient not OOB this shift. Currently NPO awaitingprocedure in open hearth laborer. PLAN MOVING FORWARD: Bleeding precautions Pain management neurovascular checks PT/OT NPO for open hearth laborer INDIVIDUALIZED FALL PREVENTION INTERVENTIONS: Patient-specific fall [...] 05/17/2022 2:40 PM EDT Physical Therapy 05/17/22 7240 Evaluation & Treatment Document Type contact Total [...] and was startedon heparin and transferred to [facility] for evaluation by vascular surgery with [...] he will will be going to the open hearth laborer for evaluation. Will defer PT eval at present but will see as ordered post cardiac catheritizaton. Social Hx:Pt lives with his Ursula in [place], [place] in a 2 level home in [...] WBAT LLE LISBET HERMAN PT Pager # [phone] In-Pt Rehab Medicine Dottie Hill APRN - [...] mL Intravenous BID ??? PHENobarbitaL 0.24 mg/kg/dose (Lyons) Oral BID Followed by ??? [START ON 05/18/2022] PHENobarbitaL 0.12 mg/kg/dose (Lyons) Oral BID ??? thiamine 100 mg Oral [...] management following Dottie Hill APRN 05/17/2022 Pager: [phone] Sary Dos Santos RN - 05/17/2022 12:16 AM EDT OUTCOME [...] ambulation]: Bedrest ?? Surveillance [continuous indirect monitoring]: Augustine, Purposeful Rounding, Nurse Knowledge Exchangeat Bedside, Bed [...] mL Intravenous BID ??? PHENobarbitaL 0.48 mg/kg/dose (Lyons) Oral BID Followed by ??? [START ON 05/17/2022] PHENobarbitaL 0.24 mg/kg/dose (Lyons) Oral BID Followed by ??? [START ON 05/18/2022] PHENobarbitaL 0.12 mg/kg/dose (Lyons) Oral BID ??? thiamine 100 mg Oral [...] management following Edward Rodríguez MD 05/16/2022 Pager: [phone] Sary Dos Santos RN - 05/16/2022 12:52 [...] and ambulation]: Bedrest Surveillance [continuous indirect monitoring]: Brendao, Purposeful Rounding, [...] met 2129 Hand off to DION Ramirez gamerco documented in this encounter H&P Notes Kerry [...] starting at 630 this morning he presented PRR H where he was placed on heparin. [...] [facility] INTERVENTIONL RAD Social Hx: Social History [...] Refill ??? fluticasone propionate (FLONASE) 50 mcg/actuation [place], Suspension as needed. ??? fluorouraciL (EFUDEX) 5 [...] and consented. Tim Chicas MD 05/15/2022 Pager: [phone] documented in this encounter ED Notes Lc [...] was started on heparin and transferred to [facility] for evaluation by vascular surgery. Review [...] lower extremity earlier today and went to [facility] where it was determined that he had ischemia of the left lower extremity. Vascular surgery [facility] was contacted and he was transferred [...] orders before pt. Arrival. Pt. Arrived at [facility] by EMS at 1150, [...] information for follow-up Home Health & H[facility]ice, [place] [address] Transportation: family or friend will provide Functional [...] Type: *No Product type* / Secondary Insurance: [facility] Prescription Coverage: Yes This plan was formulated with input from patient and team. All are in agreement with plan. IP RS has communicated with [place] - for initial IMM. R. (Paulo López RN RN/CM - Cellphone: [phone] Pager: [phone] Covering Service RN/CM Plan of Care - [...] catheterization, transferred in hospital bed accompanied by Primary Health Organisation Manager RN, remains on telemetry monitoring. Heparin [...] Type: *No Product type* / Secondary Insurance: [facility] Last Physical Therapy Recommendation: home with home health, home with supervision with None Last Occupational Therapy Recommendation: with Plan for discharge is: Home w/ Services Outpatient Agency/Support Group Needs: None Home Health Services: Registered Nurse, Physical Therapy, Occupational Therapy Agency Referrals: I have met with the patient to: ?? discuss discharge planning needs. ?? provide the [facility], Office of Care Management letter from the Sterile Process Coordinator pertaining to rehab referrals. ?? provide a letter describing our affiliations within the [facility] and educate about their right to choose where referrals are sent. ?? provide a list of Home Health Agencies / Durable Medical Equipment vendors which serve their preferred geographic area. ?? provided patient with [facility] Star Quality Rating handout. They have requested referrals to: [email or web address] [facility]. [address] [place] [id number] Note routed to a Clarifying Plant Operator who will communicate referrals to facilities and provide any required information. Transportation: family or friend will provide Barriers to discharge: None Plan going forward: Patient is going for a cardiac cath today and plan will come from there. Patientwas recently seen by PT and they recommend VNA at time of discharge. [facility] was routed and pendedat this time. Care Management will continue to follow and assist with discharge planning and coordination of care as indicated. Anticipated Date of Discharge: 05/21/2022 Nataly RICHMOND RN Phone: [phone] Pager: [phone] Plan of Care - Laney Atkins RN [...] included. [facility] [place] [address] [address] INPATIENT CARDIOLOGY CONSULT NOTE Date of Consultation: 05/17/2022 Admit Date: 05/15/2022 Hospital Day 2 days Reason for Consult: New afib Active Problems: Active Hospital Problems Diagnosis Limb ischemia Resolved Hospital Problems No resolved problems to display. HPI: Koko Zamora is a 81 y.o. male with a PMHx significant for MVP (s/p MV repair 2000), tobacco use, HLD, who presented to [facility] from OSH on 05/15 with acute limb ischemia of LLE and was found to be in atrial fibrillation. Patient had sudden onset LLE pain on 05/15 and presented to [facility], where he was started on heparin and transferred to [facility]. Upon arrival to [facility], patient was in atrial [...] [facility] INTERVENTIONL RAD IR VERTEBROPLASTY LUMBAR MULTIPLE LEVELS 07/20/2019 IR Vertebroplasty Lumbar Multiple Levels 07/20/2019 Bobby Marshall MD [facility] INTERVENTIONL RAD IR VERTEBROPLASTY THORACIC SINGLE LEVEL 10/25/2020 IR Vertebroplasty Thoracic Single Level 10/25/2020 Matt Chisholm MD [facility] INTERVENTIONL RAD PRO EMBLC/THRMBC FEMORAL POPLITEAL AORTO-ILIAC ARTERY Left 05/15/2022 EMBOLECTOMY OR THROMBECTOMY, FEMOROPOPLITEAL, AORTOILIAC ARTERY BY LEG INCISION (WRVU 19.48) performed by Fito Summers MD at [facility] MAIN OR Allergies Allergen Reactions Aspirin Other (See Comments) GI bleed Out-Patient Medications: Medications Prior to Admission Medication Sig Dispense Refill Last Dose fluorouraciL (EFUDEX) 5 % Cream daily. CRESTOR 40 mg Tablet Take 40 mg by mouth daily. fluticasone propionate (FLONASE) 50 mcg/actuation [place], Suspension as needed. ascorbic acid, vitamin C, [...] 5 mL Intravenous BID PHENobarbitaL 0.24 mg/kg/dose (Lyons) Oral BID Followed by [START ON 05/18/2022] PHENobarbitaL 0.12 mg/kg/dose (Lyons) Oral BID thiamine 100 mg Oral Daily folic acid 1,000 mcg Oral Daily multivitamin with minerals 1 tablet Oral Daily heparin (porcine) infusion 1,200 Units/hr (05/17/22 0353) Family History: No family history on file. [...] to Hosp-Admission (Current) from 05/15/2022 in 3 [facility] Office Visit from 04/17/2021 in Pain and Spine Center at [facility] Weight 79.8 kg (175 [...] continue to follow Anne-Marie Larson MD Pager [phone] Clinic: [phone] 05/17/22 6:22 PM Initial Assessments - Ifrah [...] 180 days) Any patient receiving care at [facility] must abide by [place] [...] raised toilet seat Home Address confirmed as: [address] [address] Social & Family Supports: All names listed below confirmed with patient as Incorrect. Will notify toni to correct. Wifes address is same as and phone is [phone]. Extended Emergency Contact Information Primary Emergency Contact: Ursula Zamora Address: [address] [place] [address] [place] [phone] [facility] Relation: Spouse Current Care Provided [...] Type: *No Product type* / Secondary Insurance: [facility] Prescription Coverage: Yes Preferred Pharmacy: [id number] - [place], [place] - [address] [facility] [address] [facility] [address] [id number] - [place], [place] - [address] [facility] [address] [facility] [address] [place] Status: Patient is a : unable to assess Primary Care Provider: Bobby Das MD [phone] Patient/Caregiver Goals of Treatment: to walk again Potential Needs for Transition of Care: none noted per 05/16 IDR Transportation: family will provide Transportation Anticipated: family or friend will provide Concerns to be Addressed: no discharge needs identified Assessment: Patient is admitted to vascular surg service for left lower extremity limb ischemia Plan: Per PT OT recommendations . Has used [employer] in the past. A member of the Care Management team will continue to monitor progress, follow for continuity of care and assist with transition of care planning. Ifrah Bell RN BSN [employer] Excursion of Care Management Pager [phone] Brief Op Note - Erin Garza MD - 05/15/2022 5:04 PM EDT Brief Operative Note Patient Name: Koko Zamora : [id number] MR#: [id number] Case Date: 05/15/2022 Surgeon: Surgeon(s) and Role: [...] Garza MD - 05/15/2022 2:08 PM EDT [facility] Operative Note Patient Name: Koko Zamora : [id number] MR#: [id number] Case Date: 05/15/2022 Surgeon: Surgeon(s) and Role: * Fito Summers MD - Primary * rEin Garza MD - Resident Preoperative diagnosis: Acute [...] Dixon Collins MD [facility] GASTROENTEROLOGY DEPT [place], [place] [address] (Wo rk) 09/05/2022 Appointment Cardiology Trinity Reid MD [facility] CARDIOLOGY [place], [place] [address] (Wo rk) 09/05/2022 Office Visit Cardiology Trinity Reid MD [facility] CARDIOLOGY [place], [place] 0[address] (Wo rk) 10/02/2022 Clinical Support Dermatology Thai Lynn MD [facility] DR JENNY [place], [place] [address] (Wo rk) 10/02/2022 Procedure visit Dermatology Jace Lynn MD [facility] DR [place], [place] [address] (Wo rk) Scheduled Referrals Name [...] Component Value Ref Test Analysis Performed At [facility] Range Method Time Signature VB Text Department: Vascular Surgery Lab VASCUBASE Report Patient: [id number] (KOKO ZAMORA) CPT: 56388 Referring Physician: FITO SUMMERS ?? Phone: Indications: s/p L COLLECTION CORRESPONDENT endart. Diabetes mellitus: no Findings: Right ?Pressure [...] Signature Heparin UFH 0.42 IU/mL [facility] LABORATORY Comment: Heparin (anti-Xa) levels should [...] Organization Address City/State/[place] [address] Differential, Automated (05/21/2022 6:15 AM EDT) athologist [facility] Neutrophils % 58.8 % [facility] LABORATORY Neutr Abs (ANC) 3.97 1.70 - [facility] 6.10 [facility] x10(3)/[facility] LABORATORY Lymphocytes % 25.2 % [facility] LABORATORY Lymphocytes Abs 1.7 0.9 - 3.2 [facility] x10(3)/[facility] LABORATORY Monocytes % 12.9 % [facility] LABORATORY Monocyte Abs 0.9 0.3 - 0.9 [facility] x10(3)/[facility] LABORATORY Eosinophils % 2.1 % [facility] LABORATORY Eosinophils Abs 0.1 0.0 - 0.4 [facility] x10(3)/[facility] LABORATORY Basophils % 0.4 % [facility] LABORATORY Basophils Abs 0.0 0.0 - 0.1 [facility](3[facility] LABORATORY Immature Gran % 0.60 % [facility] LABORATORY Comment: Immature granulocytes(IG's)percentage an d absolute count will include metamyelocytes, myelocytes, and promyelo cytes. Blood smears from CBCs yielding IG's will be scanned manually for concor dance. If this scan disagrees with the automated IG or if promyelocytes are not ed, a manual differential will be performed. Rain Gran Abs 0.04 0.00 - 0.04 x10(3)/[facility] [facility] LABORATORY Specimen Anatomical Collection Method Collection Time Receive d Time (Source) Location / / Volume Laterality Blood 05/21/2022 6:15 AM 6:38 EDT AM EDT Resulting Agency Comment Spec In Lab Edward Rodríguez MD HEMATOLOGY ORDERABLES Performing Organization Address City/State/[place] [address] (ABNORMAL) Hemogram (05/21/2022 6:15 AM EDT) [facility] gist Method Time Signature WBC 6.8 4.0 - 9.5 [facility] x10(3)/[facility] [place] [facility] LABORATORY RBC 3.59 (L) 4.58 - [facility] 5.54 [facility] x10(6)/[facility] LABORATORY Hemoglobin 11.8 (L) 13.7 - [facility] 16.5 g/dL [facility] LABORATORY Hematocrit 34.5 (L) 40.5 - [facility] XIAO 48.5 % [facility] LABORATORY MCV 96.1 (H) 82.9 - [facility] 93.1 [facility] LABORATORY MCH 32.9 (H) 27.5 - [facility] X[facility]O 32.1 pg [facility] LABORATORY MCHC 34.2 32.0 - [facility] 35.7 g/dL [facility] LABORATORY Platelets 198 145 - 357 [facility] x10(3)/[facility] [place] [facility] LABORATORY RDWSD 44.9 36.0 - [facility] XIAO 45.0 [facility] RDWCV 12.6 11.4 - [facility] XIAO 13.8 % [facility] LABORATORY MPV 10.0 7.6 - 12.9 [facility] LABORATORY nRBC % Auto 0.3 % [facility] LABORATORY nRBC Abs Auto 0.020 (H) 0.000 - [facility] 0.000 [facility] x10(3)/[facility] LABORATORY Specimen Anatomical Collection Method Collection Time Receive d Time (Source) Location / / Volume Laterality Blood 05/21/2022 6:15 AM 6:38 EDT AM EDT Resulting Agency Comment Spec In Lab Edward Rodríguez MD HEMATOLOGY ORDERABLES Performing Organization Address City/State/ZIP Code Phon e Number [place] [phone] HOSPITAL LABORATORY Drive EKG 12 Lead (05/20/2022 7:04 PM EDT) Component Value Ref Range Test Analysis Performed Pathologis t Method Time At Signature Ventricular rate 101 BPM MUSE SYSTEM QRS Duration 116 ms MUSE SYSTEM Q-T Interval 378 ms MUSE SYSTEM QTC Calculated 490 ms MUSE SYSTEM (Bezet) Calculated R [place] -53 degrees MUSE SYSTEM Calculated T [place] 101 degrees MUSE SYSTEM INTERPRETATION Atrial fibrillation [...] Summers MD ECG ORDERABLES Performing Organization Address City/[facility]/ZIP Code Phon e Number MUSE SYSTEM CARDIAC CATHETERIZATION (05/20/2022 6:45 PM EDT) Anatomical Region Laterality Modality Other Specimen (Source) Anatomical Location Collection Method / Collectio n Time Received Time / Laterality Volume Narrative 05/20/2022 7:09 PM EDT ?[facility] ? Cardiac Cathete rization/Intervention Report ? Patient Name: Koko Zamora. ? Procedure Date: 05/20/2022 ? A #: [id number] ? Primary Physician: Abundio Servin ? Case #: [id number] ? File Name: [id number] ? Catheterization Order Number: [id number] ? [facility] ? Final Report [place], [place] ? Patient Name: ? Koko J. Klarissa uson ? ID#: ?[id number] ? : ?1940 ? Procedure Date: ? [...] procedure was Urgent. 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 Chest pain [...] catheter and a 3.5 Fr [place] [place] [address] ??20 Mhz. ??Imaging ?was successful. ??Image [...] premounted 2. 75 x 30 mm Rudy [place] (AMPARO) was deployed ? with a maximum [...] ?modification of this regimen. C [facility] Interventional Cardiology for ?questions. ?The 1 [...] note might be different from the original. [facility] Cardiac Catheterization/Intervention Re port Patient Name: Koko Zamora Procedure Date: 05/20/2022 A #: [id number] Primary Physician: Abundio Servin Case #: File Name: [id number] Catheterization Order Number: [id number] [facility] Final Report [place], [place] Patient Name: Koko Sheldon Sera ID#: [id number] : 1940 Procedure Date: May 20, 2022 [...] e was Urgent. The indication for the open hearth laborer visit is cardiomyopathy. C hest pain [...] 3.5 guiding catheter and a 3.5 Fr [place] [place] [address] 20 Mhz. Imaging was successful. Image quality was excel lent. The ostial OM1 showed moderate diffuse atherosclerotic plaque . Post Intervention: The stent was well e xpanded and apposed. Indication for Intervention: Coronary intervention was indicated for primary therapy for an acute myocardial infarction. The priority for the procedure was Urgent. [facility] the procedure was N SILVIA-ACS. [...] atmospheres. A premounted 2.75 x 30 mm Joseph [place] (AMPRAO) was deployed with a maximum inflation pressure [...] Signature POC Glucose 123 65 - 199 [facility] mg/dL [facility] LABORATORY Comment: Supplemental ranges: <140 mg/dL before meals <180 mg/dL all other times of the day Specimen Anatomical Collection Method Collection Time Receive d Time (Source) Location / / Volume Laterality Blood 05/20/2022 5:42 PM 2 5:42 EDT PM EDT Fito Summers MD POINT OF CARE TEST ORDERABLE S Performing Organization Address City/State/[place] [address] (ABNORMAL) BMP w/fasting Glucose (05/20/2022 10:50 AM EDT) P athologist Signature Glucose 152 (H) 65 - 99 [facility] Fasting mg/dL [facility] LABORATORY Comment: ?Fasting* Glucose Interpretive C [...] Organization Address City/[facility]/ZIP [facility] Phon e Number [place] [phone] HOSPITAL LABORATORY Drive Heparin (unfractionated) Level (05/20/2022 5:02 AM EDT) P athologist Signature Heparin UFH 0.57 IU/mL [facility] LABORATORY Comment: Heparin (anti-Xa) levels should [...] Organization Address City/[facility]/ZIP [facility] Phon e Number [place] [phone] HOSPITAL LABORATORY Drive (ABNORMAL) Differential, Automated (05/20/2022 5:02 AM EDT) Patholo gist Method Time Signature Neutrophils % 58.1 % [facility] LABORATORY Neutr Abs (ANC) 4.52 1.70 - [facility] 6.10 [facility] x10(3)/[facility] LABORATORY Lymphocytes % 24.1 % [facility] LABORATORY Lymphocytes Abs 1.9 0.9 - 3.2 [facility] x10(3)/[facility] LABORATORY Monocytes % 13.8 % [facility] LABORATORY Monocyte Abs 1.1 (H) 0.3 - 0.9 [facility] x10(3)/[facility] LABORATORY Eosinophils % 2.6 % [facility] LABORATORY Eosinophils Abs 0.2 0.0 - 0.4 [facility] x10(3)/[facility] LABORATORY Basophils % 0.8 % [facility] LABORATORY Basophils Abs 0.1 0.0 - 0.1 [facility] x10(3)/[facility] LABORATORY Immature Gran % 0.60 % [facility] LABORATORY Comment: Immature granulocytes(IG's)percentage an d absolute count will include metamyelocytes, myelocytes, and promyelo cytes. Blood smears from CBCs yielding IG's will be scanned manually for concor dance. If this scan disagrees with the automated IG or if promyelocytes are not ed, a manual differential will be performed. Rain Gran Abs 0.05 (H) 0.00 - 0.04 x10(3)/[facility] LABORATORY Specimen Anatomical Collection Method Collection Time Receive d Time (Source) Location / / Volume Laterality Blood 05/20/2022 5:02 AM 5:19 EDT AM EDT Resulting Agency Comment Spec In Lab Edward Rodríguez MD HEMATOLOGY ORDERABLES Performing Organization Address City/State/Z[place] [address] (ABNORMAL) Hemogram (05/20/2022 5:02 AM EDT) Analysis Performed At Patho logist Time Signature WBC 7.8 4.0 - 9.5 [facility] x10(3)/[facility] LABORATORY RBC 3.53 (L) 4.58 - [facility] 5.54 [facility] x10(6)/[facility] LABORATORY Hemoglobin 11.4 (L) 13.7 - [facility] 16.5 g/dL [facility] LABORATORY Hematocrit 34.3 (L) 40.5 - [facility] 48.5 % [facility] LABORATORY MCV 97.2 (H) 82.9 - [facility] 93.1 [facility] LABORATORY MCH 32.3 (H) 27.5 - [facility] [place] 32.1 pg [facility] LABORATORY MCHC 33.2 32.0 - [facility] [place] 35.7 g/dL [facility] LABORATORY Platelets 181 145 - 357 [facility] x10(3)/[facility] LABORATORY RDWSD 46.4 (H) 36.0 - [facility] [place] 45.0 [facility] LABORATORY RDWCV 13.0 11.4 - [facility] [place] 13.8 % [facility] LABORATORY MPV 10.4 7.6 - 12.9 [facility] LABORATORY nRBC % Auto 0.0 % [facility] nRBC Abs Auto 0.000 0.000 - [facility] [place] 0.000 [facility] x10(3)/[facility] LABORATORY Specimen Anatomical Collection Method Collection Time Receive d Time (Source) Location / / Volume Laterality Blood 05/20/2022 5:02 AM 5:19 EDT AM EDT Resulting Agency Comment Spec In Lab Edward Rodríguez MD HEMATOLOGY ORDERABLES Performing Organization Address City/State/[place] [address] Heparin (unfractionated) Level (05/19/2022 3:26 AM EDT) P athologist Signature Heparin UFH 0.59 IU/mL [facility] LABORATORY Comment: Heparin (anti-Xa) levels should [...] Address City/State/Z[place] [address] (ABNORMAL) Differential, Automated (05/19/2022 3:26 AM EDT) [facility] gist Method Time Signature Neutrophils % 62.1 % [facility] LABORATORY Neutr Abs (ANC) 4.59 1.70 - [facility] 6.10 [facility] x10(3)/[facility] LABORATORY Lymphocytes % 22.1 % [facility] LABORATORY Lymphocytes Abs 1.6 0.9 - 3.2 [facility] x10(3)/[facility] LABORATORY Monocytes % 13.5 % [facility] LABORATORY Monocyte Abs 1.0 (H) 0.3 - 0.9 [facility] x10(3)/[facility] LABORATORY Eosinophils % 1.3 % [facility] LABORATORY Eosinophils Abs 0.1 0.0 - 0.4 [facility] x10(3)/[facility] LABORATORY Basophils % 0.5 % [facility] LABORATORY Basophils Abs 0.0 0.0 - 0.1 [facility] x10(3)/[facility] LABORATORY Immature Gran % 0.50 % [facility] LABORATORY Comment: Immature [...] - 0.04 x10(3)/[facility] LABORATORY Specimen Anatomical Collection Method Collection Time Receive d Time (Source) Location / / Volume Laterality Blood 05/19/2022 3:26 AM 2 3:59 EDT AM EDT Resulting Agency Comment Spec In Lab Edward Rodríguez MD HEMATOLOGY ORDERABLES Performing Organization Address City/State/ZIP Code Phon e Number [address] (ABNORMAL) Hemogram (05/19/2022 3:26 AM EDT) Analysis Performed At Patho logist Time Signature WBC 7.4 4.0 - 9.5 [facility] x10(3)/[facility] LABORATORY RBC 3.74 (L) 4.58 - [facility] 5.54 [facility] x10(6)/[facility] LABORATORY Hemoglobin 12.1 (L) 13.7 - [facility] 16.5 g/dL [facility] LABORATORY Hematocrit 36.4 (L) 40.5 - [facility] 48.5 % [facility] LABORATORY MCV 97.3 (H) 82.9 - [facility] XIAO 93.1 [facility] LABORATORY MCH 32.4 (H) 27.5 - [facility] 32.1 pg [facility] LABORATORY MCHC 33.2 32.0 - [facility] 35.7 g/dL [facility] LABORATORY Platelets 168 145 - 357 [facility] x10(3)/[facility] LABORATORY RDWSD 46.9 (H) 36.0 - [facility] 45.0 [facility] LABORATORY RDWCV 13.0 11.4 - [facility] 13.8 % [facility] LABORATORY MPV 10.5 7.6 - 12.9 [facility] LABORATORY nRBC % Auto 0.0 % [facility] LABORATORY nRBC Abs Auto 0.000 0.000 - [facility] 0.000 [facility] x10(3)/[facility] LABORATORY Specimen Anatomical Collection Method Collection Time Receive d Time (Source) Location / / Volume Laterality Blood 05/19/2022 3:26 AM 2 3:59 EDT AM EDT Resulting Agency Comment Spec In Lab Edward Rodríguez MD HEMATOLOGY ORDERABLES Performing Organization Address City/State/[place] [address] TSH (05/18/2022 8:00 PM EDT) P athologist Signature TSH 2.27 0.27 - 4.20 [facility] mcIU/mL [facility] LABORATORY Comment: Reference Interval (mcIU/mL): Females: ??First Trimester: 0.23-3.88 ??Second Trimester: 0.22-3.90 ??Third Trimester: 0.44-4.66 Specimen Anatomical Collection Method Collection Time Receive d Time (Source) Location / / Volume Laterality Blood 05/18/2022 8:00 PM 8:06 EDT PM EDT Resulting Agency Comment Spec In Lab Fito Summers MD CHEMISTRY ORDERABLES Performing Organization Address City/State/[place] [address] (ABNORMAL) Differential, Automated (05/18/2022 3:34 AM EDT) Patholo gist Method Time Signature Neutrophils % 67.2 % [facility] LABORATORY Neutr Abs (ANC) 5.89 1.70 - [facility] 6.10 [facility] x10(3)/[facility] LABORATORY Lymphocytes % 17.1 % [facility] LABORATORY Lymphocytes Abs 1.5 0.9 - 3.2 [facility] x10(3)/[facility] LABORATORY Monocytes % 13.6 % [facility] LABORATORY Monocyte Abs 1.2 (H) 0.3 - 0.9 [facility] x10(3)/[facility] LABORATORY Eosinophils % 1.0 % [facility] LABORATORY Eosinophils Abs 0.1 0.0 - 0.4 [facility] x10(3)/[facility] LABORATORY Basophils % 0.6 % [facility] LABORATORY Basophils Abs 0.0 0.0 - 0.1 [facility] x10(3)/[facility] LABORATORY Immature Gran % 0.50 % [facility] LABORATORY Comment: Immature granulocytes(IG's)percentage an d absolute count will include metamyelocytes, myelocytes, and promyelo cytes. Blood smears from CBCs yielding IG's will be scanned manually for concor dance. If this scan disagrees with the automated IG or if promyelocytes are not ed, a manual differential will be performed. Rain Gran Abs 0.04 0.00 - 0.04 x10(3)/[facility] MAR Y [facility] LABORATORY Specimen Anatomical Collection Method Collection Time Receive d Time (Source) Location / / Volume Laterality Blood 05/18/2022 3:34 AM 3:48 EDT AM EDT Resulting Agency Comment Spec In Lab Edward Rodríguez MD HEMATOLOGY ORDERABLES Performing Organization Address City/State/[place] [address] (ABNORMAL) Hemogram (05/18/2022 3:34 AM EDT) Analysis Performed At Patho logist Time Signature WBC 8.8 4.0 - 9.5 [facility] x10(3)/[facility] LABORATORY RBC 3.45 (L) 4.58 - [facility] 5.54 [facility] x10(6)/[facility] LABORATORY Hemoglobin 11.2 (L) 13.7 - [facility] 16.5 g/dL [facility] LABORATORY Hematocrit 33.0 (L) 40.5 - [facility] 48.5 % [facility] LABORATORY MCV 95.7 (H) 82.9 - [facility] 93.1 [facility] LABORATORY MCH 32.5 (H) 27.5 - [facility] 32.1 pg [facility] LABORATORY MCHC 33.9 32.0 - [facility] 35.7 g/dL [facility] LABORATORY Platelets 130 (L) 145 - 357 [facility] x10(3)/[facility] LABORATORY RDWSD 46.2 (H) 36.0 - [facility] 45.0 [facility] LABORATORY RDWCV 13.2 11.4 - [facility] 13.8 % [facility] LABORATORY MPV 10.8 7.6 - 12.9 [facility] LABORATORY nRBC % Auto 0.0 % [facility] LABORATORY nRBC Abs Auto 0.000 0.000 - [facility] 0.000 [facility] x10(3)/[facility] LABORATORY Specimen Anatomical Collection Method Collection Time Receive d Time (Source) Location / / Volume Laterality Blood 05/18/2022 3:34 AM 2 3:48 EDT AM EDT Resulting Agency Comment Spec In Lab Edward Rodríguez MD HEMATOLOGY ORDERABLES Performing Organization Address City/[facility]/[place] [address] Heparin (unfractionated) Level (05/18/2022 3:34 AM EDT) athologist Signature Heparin UFH 0.59 IU/mL [facility] LABORATORY Comment: Heparin (anti-Xa) levels should [...] [facility]/[place] [address] Magnesium (05/17/2022 3:33 AM EDT) athologist Signature Magnesium 0.76 0.69 - 1.07 [facility] mmol/L [facility] LABORATORY Specimen Anatomical Collection Method Collection Time Receive d Time (Source) Location / / Volume Laterality Blood Venous Draw / 05/17/2022 3:33 AM 05/17/20 4:05 Unknown EDT AM EDT Resulting Agency Comment Spec In Lab Dottie Hill APRN CHEMISTRY ORDERABLES Performing Organization Address City/State/Z[place] [address] (ABNORMAL) Basic Metabolic Panel (non-fasting) (05/17/2022 3:33 AM EDT) P athologist Signature Glucose Lvl 158 65 - 199 [facility] mg/dL [facility] LABORATORY Comment: Diabetes: >=200 mg/dL plus [...] estions. Chloride 102 98 - 107 mmol/L [facility] LABORATORY CO2 25 22 - 31 mmol/L [facility] LABORATORY Anion Gap 10 5 - 15 mmol/L [facility] LABORATORY Calcium 8.4 (L) 8.5 - 10.5 mg/dL [facility] LABORATORY Estimated GFR 92 >=60 mL/min/1.73 m?? [facility] LABORATORY [...] Address City/State/Z[place] [address] (ABNORMAL) Differential, Automated (05/17/2022 3:33 AM EDT) [facility] Method Time Signature Neutrophils % 65.5 % [facility] LABORATORY Neutr Abs (ANC) 6.84 (H) 1.70 - [facility] 6.10 [facility] x10(3)/[facility] LABORATORY Lymphocytes % 19.7 % [facility] LABORATORY Lymphocytes Abs 2.1 0.9 - 3.2 [facility] x10(3)/[facility] LABORATORY Monocytes % 13.1 % [facility] LABORATORY Monocyte Abs 1.4 (H) 0.3 - 0.9 [facility] x10(3)/[facility] LABORATORY Eosinophils % 0.6 % [facility] LABORATORY Eosinophils Abs 0.1 0.0 - 0.4 [facility] x10(3)/[facility] LABORATORY Basophils % 0.6 % [facility] LABORATORY Basophils Abs 0.1 0.0 - 0.1 [facility] x10(3)/[facility] LABORATORY Immature Gran % 0.50 % [facility] LABORATORY Comment: Immature granulocytes(IG's)percentage an d absolute count will include metamyelocytes, myelocytes, and promyelo cytes. Blood smears from CBCs yielding IG's will be scanned manually for concor dance. If this scan disagrees with the automated IG or if promyelocytes are not ed, a manual differential will be performed. Rain Gran Abs 0.05 (H) 0.00 - 0.04 x10(3)/[facility] LABORATORY Specimen Anatomical Collection Method Collection Time Receive d Time (Source) Location / / Volume Laterality Blood 05/17/2022 3:33 AM 2 3:53 EDT AM EDT Resulting Agency Comment Spec In Lab Edward Rodríguez MD HEMATOLOGY ORDERABLES Performing Organization Address City/State/[place] [address] (ABNORMAL) Hemogram (05/17/2022 3:33 AM EDT) Analysis Performed At Patho logist Time Signature WBC 10.4 (H) 4.0 - 9.5 [facility] x[facility] LABORATORY RBC 3.72 (L) 4.58 - [facility] 5.54 [facility] x10(6)/[facility] LABORATORY Hemoglobin 12.0 (L) 13.7 - [facility] 16.5 g/dL [facility] LABORATORY Hematocrit 36.4 (L) 40.5 - [facility] 48.5 % [facility] LABORATORY MCV 97.8 (H) 82.9 - [facility] 93.1 [facility] LABORATORY MCH 32.3 (H) 27.5 - [facility] 32.1 pg [facility] LABORATORY MCHC 33.0 32.0 - [facility] 35.7 g/dL [facility] LABORATORY Platelets 149 145 - 357 [facility] x10(3)/[facility] LABORATORY RDWSD 48.7 (H) 36.0 - [facility] 45.0 [facility] LABORATORY RDWCV 13.5 11.4 - [facility] 13.8 % [facility] LABORATORY MPV 10.6 7.6 - 12.9 [facility] LABORATORY nRBC % Auto 0.0 % [facility] LABORATORY nRBC Abs Auto 0.000 0.000 - [facility] XIAO 0.000 [facility] x10(3)/[facility] LABORATORY Specimen Anatomical Collection Method Collection Time Receive d Time (Source) Location / / Volume Laterality Blood 05/17/2022 3:33 AM 3:53 EDT AM EDT Resulting Agency Comment Spec In Lab Edward Rodríguez MD HEMATOLOGY ORDERABLES Performing Organization Address City/[facility]/[place] [address] (ABNORMAL) Urinalysis Microscopic Exam [...] Address City/State/[place] [address] (ABNORMAL) Urinalysis with reflex Culture (05/16/2022 11:15 PM EDT) Patholo gist Method Time Signature Glucose UA Negative Negative [facility] mg/dL [facility] LABORATORY Protein UA Negative Negative [facility] mg/dL [facility] LABORATORY Bilirubin UA Negative Negative [facility] mg/dL [facility] LABORATORY Comment: Clinical correlation required for positi ve Urine Bilirubin results as false positive may occur with some drugs and d rug related products. If a false positive is suspected a serum total bili quarles should be considered if clinically indicated. Urobilinogen UA Normal Normal mg/dL [facility] LABORATORY pH UA 6.0 5.0 - 8.0 [facility] LABORATORY Blood UA Small (A) Negative mg/dL [facility] LABORATORY Ketones UA Trace (A) Negative mg/dL [facility] LABORATORY Nitrite UA Negative Negative [facility] LABORATORY Leukocytes UA Negative Negative [facility] LABORATORY Appearance UA Clear Clear [facility] LABORATORY Spec [place] UA 1.021 1.005 - 1.030 [facility] LABORATORY Color UA Yellow Yellow [facility] LABORATORY Culture Reflexed No [facility] LABORATORY Specimen Anatomical Collection Method Collection Time Receive d Time (Source) Location / / Volume Laterality Clean Catch 05/16/2022 11:15 05/16/2022 Urine PM EDT 11:30 PM EDT Resulting Agency Comment Spec In Lab Fito Summers MD URINE ORDERABLES Performing Organization Address City/[facility]/ZIP Code Phon e Number [address] Heparin (unfractionated) Level (05/16/2022 10:59 PM EDT) P athologist Signature Heparin UFH 0.65 IU/mL [facility] LABORATORY Comment: Specimen drawn more than [...] [facility]/[place] [address] XR Chest One View [...] who have questions please contact the health acute care physical therapist that requested your imaging first. ? Electronically signed by: Tiffanie George MD , [facility] ([phone]), at 05/16/2022 9:27 PM Narrative 05/16/2022 9:27 [...] ho have questions please contact the health acute care physical therapist that requested your imaging first. Electronically signed by: Tiffanie George MD , [facility] ([phone]), at 05/16/2022 9:27 PM Fito Summers MD IMG DX ORDERABLES EKG 12 Lead (05/16/2022 8:57 PM EDT) Component Value Ref Range Test Analysis Performed Pathologis t Method Time At Signature Ventricular rate 117 BPM MUSE SYSTEM QRS Duration 112 ms MUSE SYSTEM Q-T Interval 346 ms MUSE SYSTEM QTC Calculated 482 ms MUSE SYSTEM (Bezet) Calculated R Ashmore -48 degrees MUSE SYSTEM Calculated T Ashmore 111 degrees MUSE SYSTEM INTERPRETATION Atrial fibrillation [...] Summers MD ECG ORDERABLES Performing Organization Address City/[facility] Phon e Number MUSE SYSTEM Heparin (unfractionated) Level (05/16/2022 4:34 PM EDT) athologist Signature Heparin UFH 0.53 IU/mL [facility] LABORATORY Comment: Heparin (anti-Xa) levels should [...] Organization Address City/[facility]/[place]IP [facility] [place] [address] ECHOCARDIOGRAM COMPLETE W CONTRAST (05/16/2022 12:49 PM EDT) P athologist Signature EF 28 HEARTLAB SYSTEM Anatomical Region Laterality Modality Cardiac Other Specimen (Source) Anatomical Collection Method Collection Time Re ceived Time Location / / Volume Laterality 05/16/2022 11:22 AM EDT Narrative 05/16/2022 1:54 PM EDT ?[facility] ?[address] ? [place] [address] ?Voice: ?Fax: ? Echocardiogram Report Name: KOKO ZAMORA ?Study Date: 05/16/2022 11:22 AM ? Patient Location: [facility] 0303 : 1940 ? Height: 67.5 in ? Account: [id number] Age: 81 yrs ? Weight: 176 lb [...] and LV systolic dysfunction are new. Procedure Complete-[id number]. Image enhancement Optiso n was used for [...] note might be different from the original. [facility] [address] [place] [address] Voice: Fax: Echocardiogram Report Name: KOKO ZAMORA Study Date: 05/2022 11:22 AM Patient Location: [address] [place] [address] : 1940 Height: 67.5 in Account: [id number] Age: 81 yrs Weight: 176 lb Gender: [...] and LV systolic dysfunction are new. Procedure Complete-[id number]. Image enhancement Optiso n was used for [...] (ABNORMAL) Differential, Automated (05/16/2022 3:01 AM EDT) [facility] Method Time Signature Neutrophils % 78.8 % [facility] LABORATORY Neutr Abs (ANC) 9.11 (H) 1.70 - [facility] 6.10 [facility] x10(3)/[facility] L LABORATORY Lymphocytes % 9.4 % [facility] LABORATORY Lymphocytes Abs 1.1 0.9 - 3.2 [facility] x10(3)/[facility] LABORATORY Monocytes % 10.9 % [facility] LABORATORY Monocyte Abs 1.3 (H) 0.3 - 0.9 [facility] x10(3)/[facility] LABORATORY Eosinophils % 0.0 % [facility] LABORATORY Eosinophils Abs 0.0 0.0 - 0.4 [facility] x10(3)/[facility] LABORATORY Basophils % 0.3 % [facility] LABORATORY Basophils Abs 0.0 0.0 - 0.1 [facility] x10(3)/[facility] LABORATORY Immature Gran % 0.60 % [facility] LABORATORY Comment: Immature granulocytes(IG's)percentage an d absolute count will include metamyelocytes, myelocytes, and promyelo cytes. Blood smears from CBCs yielding IG's will be scanned manually for concor dance. If this scan disagrees with the automated IG or if promyelocytes are not ed, a manual differential will be performed. Rain Gran Abs 0.07 (H) 0.00 - 0.04 x10(3)/[facility] LABORATORY Specimen Anatomical Collection Method Collection Time Receive d Time (Source) Location / / Volume Laterality Blood 05/16/2022 3:01 AM 3:36 EDT AM EDT Resulting Agency Comment Spec In Lab Erin Garza MD HEMATOLOGY ORDERABLES Performing Organization Address City/State/ZIP [place] [address] (ABNORMAL) Hemogram (05/16/2022 3:01 AM EDT) Analysis Performed At Patho logist Time Signature WBC 11.6 (H) 4.0 - 9.5 [facility] x10(3)/[facility] LABORATORY RBC 3.62 (L) 4.58 - [facility] 5.54 [facility] x10(6)/[facility] LABORATORY Hemoglobin 12.0 (L) 13.7 - [facility] 16[facility] g/dL [facility] LABORATORY Hematocrit 35.3 (L) 40.5 - [facility] 48.5 % [facility] LABORATORY MCV 97.5 (H) 82.9 - [place] [place] 93.1 [facility] LABORATORY MCH 33.1 (H) 27.5 - [place] [place] 32.1 pg [facility] LABORATORY MCHC 34.0 32.0 - [facility] [place] 35.7 g/dL [facility] LABORATORY Platelets 151 145 - 357 [facility] x10(3)/[facility] LABORATORY RDWSD 47.6 (H) 36.0 - [facility] [place] 45.0 [facility] LABORATORY RDWCV 13.3 11.4 - [facility] [place] 13.8 % [facility] LABORATORY MPV 10.5 7.6 - 12.9 [facility] nRBC % Auto 0.0 % [facility] LABORATORY nRBC Abs Auto 0.000 0.000 - [facility] [place] 0.000 [facility] x10(3)/[facility] LABORATORY Specimen Anatomical Collection Method Collection Time Receive d Time (Source) Location / / Volume Laterality Blood 05/16/2022 3:01 AM 2 3:36 EDT AM EDT Resulting Agency Comment Spec In Lab Erin Garza MD HEMATOLOGY ORDERABLES Performing Organization Address City/State/ZIP Code Phon e Number [address] Phosphorus (05/16/2022 3:01 AM EDT) P athologist Signature Phosphorus 3.7 2.5 - 4.5 [facility] XIAO mg/dL [facility] LABORATORY Specimen Anatomical Collection Method Collection Time Receive d Time (Source) Location / / Volume Laterality Blood 05/16/2022 3:01 AM 2 3:36 EDT AM EDT Resulting Agency Comment Spec In Lab Fito Summers MD CHEMISTRY ORDERABLES Performing Organization Address City/[facility]/ZIP Code Phon e Number [address] Magnesium (05/16/2022 3:01 AM EDT) P athologist Signature Magnesium 0.77 0.69 - 1.07 [facility] [place] mmol/L [facility] LABORATORY Specimen Anatomical Collection Method Collection Time Receive d Time (Source) Location / / Volume Laterality Blood 05/16/2022 3:01 AM 3:36 EDT AM EDT Resulting Agency Comment Spec In Lab Fito Summers MD CHEMISTRY ORDERABLES Performing Organization Address City/State/[place]IP [place] [address] (ABNORMAL) Basic Metabolic Panel (non-fasting) (05/16/2022 3:01 AM EDT) P athologist Signature Glucose Lvl 222 (H) 65 - 199 [facility] mg/dL [facility] LABORATORY Comment: Diabetes: >=200 mg/dL plus [...] 107 mmol/L [facility] LABORATORY CO2 22 22 - 31 mmol/L [facility] LABORATORY Anion Gap 8 5 - 15 mmol/L [facility] LABORATORY Calcium 8.2 (L) 8.5 - 10.5 mg/dL [facility] LABORATORY Estimated GFR 95 >=60 mL/min/1.73 m?? [facility] LABORATORY [...] Address City/State/[place] [address] (ABNORMAL) BLOOD GAS 2 ARTERIAL (05/15/2022 3:33 PM EDT) Analysis Performed At [facility] Time Signature pH Art 7.33 (L) 7.35 - [facility] 7.45 [facility] LABORATORY pCO2 Art 41 35 - 45 [facility] LABORATORY pO2 Art 131 (H) 85 - 104 [facility] LABORATORY HCO3 Art 21.1 20.0 - [facility] 26.0 [facility] mmol/L [facility] LABORATORY BE Art -4.8 (L) -3.0 - 3.0 [facility] mmol/L [facility] LABORATORY Hgb Blood Gas 13.4 (L) 13.7 - [facility] 16.5 g/dL [facility] LABORATORY O2HB Art 96.9 94.0 - [facility] 97.0 % [facility] LABORATORY COHB Art 1.4 % [facility] LABORATORY Comment: Nonsmokers: 0.5-1.5% COHB Smokers: Variable, but usually less than 10% Toxic: 20-30% COHB Lethal: Greater than 60% COHB METHB Art 0.3 <=1.5 % [facility] LABORATORY Na Whole Blood 139 [...] Lactate WB 2.0 0.5 - 2.2 mmol/L [facility] LABORATORY Specimen Anatomical Collection Method Collection Time Receive d Time (Source) Location / / Volume Laterality Blood 05/15/2022 3:33 PM 3:[address] Jamel Torre MD CHEMISTRY ORDERABLES Performing Organization Address City/State/ZIP Code Phon e Number [place] [id number] HOSPITAL LABORATORY Drive (ABNORMAL) BLOOD GAS 2 ARTERIAL (05/15/2022 2:06 PM EDT) Analysis Performed At Patho logist Time Signature pH Art 7.39 7.35 - [facility] 7.45 [facility] LABORATORY pCO2 Art 35 35 - 45 [facility] mmHg [facility] LABORATORY pO2 Art 135 (H) 85 - 104 [facility] LABORATORY HCO3 Art 20.8 20.0 - [facility] 26.0 [facility] mmol/L [facility] LABORATORY BE Art -4.2 (L) -3.0 - 3.0 [facility] mmol/L [facility] LABORATORY Hgb Blood Gas 14.5 13.7 - [facility] 16.5 g/dL [facility] LABORATORY O2HB Art 97.2 (H) 94.0 - [facility] 97.0 % [facility] LABORATORY COHB Art 1.2 % [facility] LABORATORY Comment: Nonsmokers: 0.5-1.5% COHB Smokers: Variable, but usually less than 10% Toxic: 20-30% COHB Lethal: Greater than 60% COHB METHB Art 0.3 <=1.5 % [facility] LABORATORY Na Whole Blood 140 135 - 145 mmol/L [facility]ORAT[facility] K Whole Blood 3.8 3.5 - 5.0 mmol/L [facility] LABORATORY Comment: Please note: Patients with WBC >100,000 may have falsely elevated Potassium levels. Contact the Clinical Chemistry L aboratory if there are any questions. ICa Whole Blood 1.12 (L) 1.15 - 1.33 mmol/L [facility] LABORATORY Comment: Note: ??Total bilirubin higher than 20 m g/dL may lead to falsely low ionized calcium. CL Whole Blood 109 (H) 98 - 107 mmol/L [facility] LABORATORY Gluc Whole Bld 152 65 - 199 mg/dL [facility] LABORATORY Comment: Diabetes: >=200 mg/dL plus symp toms. Lactate WB 1.5 0.5 - 2.2 mmol/L [facility] LABORATORY Specimen Anatomical Collection Method Collection Time Receive d Time (Source) Location / / Volume Laterality Blood 05/15/2022 2:06 PM 2:[address] Jamel Torre MD CHEMISTRY ORDERABLES Performing Organization Address City/[facility]/[place] [address] (ABNORMAL) Prothrombin Time (05/15/2022 12:30 PM EDT) P athologist Signature PT 12.9 (H) 9.4 - 12.5 [facility] LABORATORY INR 1.1 [facility] [...] [facility]/[place] [address] (ABNORMAL) APTT (05/15/2022 12:30 [...] [facility]/ZIP Code Phon e Number [address] Gold Tube HOLD (05/15/2022 12:20 PM EDT) athologist Signature Gold Hold Sample in [facility]. [facility] LABORATORY Specimen Anatomical Collection Method Collection Time Receive d Time (Source) Location / / Volume Laterality Blood No Charge / 05/15/2022 12:20 05/15/2022 Unknown PM EDT 12:20 PM EDT Lc TRIPP CHEMISTRY ORDERABLES Performing Organization Address City/[facility]/ZIP Code Phon e Number [address] Type and Screen Validity (05/15/2022 12:00 PM EDT) [facility] Method Time Signature T&S only valid [facility] at [facility] LAB[facility]ATORY Comment: This Type and Screen result is only valid at the [facility] Specimen Anatomical Collection Method Collection Time Receive d Time (Source) Location / / Volume Laterality Blood 05/15/2022 12:00 05/15/2022 PM EDT 12:17 PM EDT Resulting Agency Comment Spec In Lab Lc TRIPP BLOOD BANK ORDERABLES Performing Organization Address City/[facility]/ZIP Code Phon e Number [address] ABORH Recheck Status (05/15/2022 12:00 PM EDT) [facility] Method Time Signature ABORH Recheck Order Placed [facility] K Order [facility] LABORATORY ABORH Type Complete [facility] LABORATORY Specimen Anatomical Collection Method Collection Time Receive d Time (Source) Location / / Volume Laterality Blood 05/15/2022 12:00 05/15/2022 PM EDT 12:17 PM EDT Resulting Agency Comment Spec In Lab Lc TRIPP BLOOD BANK ORDERABLES Performing Organization Address City/State/[place] [address] CK (05/15/2022 12:00 PM EDT) P athologist [facility] CK, Total 87 0 - 200 [facility] unit/L [facility] LABORATORY Specimen Anatomical Collection Method Collection Time Receive d Time (Source) Location / / Volume Laterality Blood Venous Draw / 05/15/2022 12:00 05/15/2022 Unknown PM EDT 12:19 PM EDT Resulting Agency Comment Spec In Lab Fito Summers MD CHEMISTRY ORDERABLES Performing Organization Address City/[facility]/[place] [address] Antibody screen (05/15/2022 12:00 PM EDT) [facility] Method Time Signature Ab Screen Negative [facility] LABORATORY Expires at 05/18/2022 [id number] on: [facility] LAB[facility]ORY Specimen Anatomical Collection Method Collection Time Receive d Time (Source) Location / / Volume Laterality Blood 05/15/2022 12:00 05/15/2022 PM EDT 12:17 PM EDT Resulting Agency Comment Spec In Lab Lc TRIPP BLOOD BANK ORDERABLES Performing Organization Address City/[facility]/ZIP Code Phon e Number [address] ABO/Rh Typing (05/15/2022 12:00 [...] Address City/State/Z[place] [address] (ABNORMAL) Differential, Automated (05/15/2022 12:00 PM EDT) [facility] Method Time Signature Neutrophils % 79.4 % [facility] LABORATORY Neutr Abs (ANC) 7.49 (H) 1.70 - [facility] 6.10 [facility] x10(3)/[facility] LABORATORY Lymphocytes % 11.3 % [facility] LABORATORY Lymphocytes Abs 1.1 0.9 - 3.2 [facility] x10(3)/[facility] LABORATORY Monocytes % 7.8 % [facility] LABORATORY Monocyte Abs 0.7 0.3 - 0.9 [facility] x10(3)/[facility] LABORATORY Eosinophils % 0.6 % [facility] LABORATORY Eosinophils Abs 0.1 0.0 - 0.4 [facility] x10(3)/[facility] LABORATORY Basophils % 0.6 % [facility] LABORATORY Basophils Abs 0.1 0.0 - 0.1 [facility] x10(3)/[facility] LABORATORY Immature Gran % 0.30 % [facility] LABORATORY Comment: Immature granulocytes(IG's)percentage an d absolute count will include metamyelocytes, myelocytes, and promyelo cytes. Blood smears from CBCs yielding IG's will be scanned manually for concor dance. If this scan disagrees with the automated IG or if promyelocytes are not ed, a manual differential will be performed. Rain Gran Abs 0.03 0.00 - 0.04 x10(3)/[facility] LABORATORY Specimen Anatomical Collection Method Collection Time Receive d Time (Source) Location / / Volume Laterality Blood 05/15/2022 12:00 05/15/2022 PM EDT 12:19 PM EDT Resulting Agency Comment Spec In Lab Lc TRIPP HEMATOLOGY ORDERABLES Performing Organization Address City/State/Z[place] [address] (ABNORMAL) Hemogram (05/15/2022 12:00 PM EDT) Analysis Performed At Patho logist Time Signature WBC 9.4 4.0 - 9.5 [facility] x10(3)/[facility] LABORATORY RBC 4.48 (L) 4.58 - [facility] XIA[place] 5.54 [facility] x10(6)/[facility] LABORATORY Hemoglobin 14.5 13.7 - [facility] 16.5 g/dL [facility] LABORATORY Hematocrit 42.4 40.5 - [facility] 48.5 % [facility] LABORATORY MCV 94.6 (H) 82.9 - [facility] 93.1 [facility] LABORATORY MCH 32.4 (H) 27.5 - [facility] 32.1 pg [facility] LABORATORY MCHC 34.2 32.0 - [facility] 35.7 g/dL [facility] LABORATORY Platelets 209 145 - 357 [facility] x10(3)/[facility] LABORATORY RDWSD 45.9 (H) 36.0 - [facility] 45.0 [facility] LABORATORY RDWCV 13.1 11.4 - [facility] 13.8 % [facility] LABORATORY MPV 10.5 7.6 - 12.9 [facility] LABORATORY nRBC % Auto 0.0 % [facility] LABORATORY nRBC Abs Auto 0.000 0.000 - [facility] 0.000 [facility] x10(3)/[facility] LABORATORY Specimen Anatomical Collection Method Collection Time Receive d Time (Source) Location / / Volume Laterality Blood 05/15/2022 12:00 05/15/2022 PM EDT 12:19 PM EDT Resulting Agency Comment Spec In Lab Lc TRIPP HEMATOLOGY ORDERABLES Performing Organization Address City/State/Z[place] [address] (ABNORMAL) Basic Metabolic Panel (non-fasting) (05/15/2022 12:00 PM EDT) athologist Signature Glucose Lvl 203 (H) 65 - 199 [facility] mg/dL [facility] LAB[facility]ORY Comment: Diabetes: >=200 mg/dL plus [...] mmol/L [facility] LABORATORY Anion Gap 11 5 - 15 mmol/L [facility] LABORATORY Calcium 8.5 8.5 - 10.5 mg/dL [facility] LABORATORY Estimated GFR 89 >=60 mL/min/1.73 m?? [facility] LABORATORY [...] Address City/State/ZIP Code [place] [address] documented in this encounter [...] Units/hr (0-100 mL/hr), Intravenous, CONTINUOUS, Starting on Fri05/16/22 at 0845, Until 05/21/22 at 1523, Begin [...] mg = 1.8 mg/kg/dose ? 67.7 kg Lyons weight), Intravenous, at 11.3 mL/hr, EVERY 3 [...] mg = 2.4 mg/kg/dose ? 67.7 kg Lyons weight), Intravenous, at 15 mL/hr, ONCE, 1 [...] mg = 0.24 mg/kg/dose ? 67.7 kg Lyons weight), Oral, 2 TIMES DAILY, 2 doses, [...] mg = 0.48 mg/kg/dose ? 67.7 kg Lyons weight), Oral, 2 TIMES DAILY, 2 doses, [...] mg = 0.12 mg/kg/dose ? 67.7 kg Lyons weight), Oral, 2 TIMES DAILY, 2 doses, [...] RN)2008 (Given - Provider: Nuris Lester RN) 53 (Given - Provider: Barbie Joyce RN)1750 (COPPER [...] Routine metoprolol tartrate (Lopressor) tablet 12.5 mg 1135 (Given - Provider: Etta Don RN) 12.5 mg, Oral, EVERY 6 HOURS SCHEDULED, First dose (after last modification) on Fri05/21/22 at 1200, Until Discontinued, Routine multivitamin with minerals (Thera M) tablet 1 tablet 0 838 (Given - Provider: Caroline Zamora RN) 0852 (Given - Provider: Barbie Joyce RN)1750 (COPPER [...] area)1955 (JAN Unhold - Provider: Admin Adt) 17 (Given - Provider: Etta contreras RN) 0.4 [...] Adt - Reason: Transfer to a Procedural area)195 (JAN Unhold - Provider: Admin Adt) 0219 (Restarted - Provider: Tere Blankenship, RN - [...] Cassy Schultz, RN)2200 (Stopped - Provider: Tere Blankenship RN) [...] EVERY 6 HOURS PRN, Startin g on Fri05/16/22 at 1606, Until Fri05/21/22 at [...] BOLUS PER TRE ROSARIO PROTOCOL, Starting on Fri05/16/22 at 0758, Until [...] midazolam (pf) (Versed) (1 mg/mL) multi-dose injection ([facility]) 1713 (Given - Provider: Abundio Servin [...]
Routine documented in this encounter Care Teams Group Burner Machine Relationship Specialty Start Date End Date Bobby Das MD PCP - General 10/02/[address] [place] [address] [place] [phone] documented as of this encounter
--- OUTSIDE RECORDS SUMMARY | 2022-08-05 09:01 | XMS_ITS | Encounter Summary ---
:1940 Author Organization [facility] [place] [address] Care Team Providers Name Role Phone Bobby Das MD Primary Care Provider Reason for Visit Reason Comments Left Leg Pain Auth/Cert Specialty Diagnoses / Procedures Referred By Contact Refer red To Contact Diagnoses Limb ischemia LLE thrombus Fito Summers MD [facility] [place] [address] Referral ID Status Reason Start Date Expiration Date Visits Requ ested Visits Authorized [id number] 1 1 Encounter Details Date Type Department Care Team Description 05/20/2022 Surgery Hot Mill Shearer Abundio Mcguire , CARDIAC CATHETERIZATION [place] [address] CARDIOLOGY [phone] [place], [place] [address] (Wo rk) Social History Tobacco [...] emergently went to the OR for L ENGINEERING DESIGN SUPERVISOR transverse arteriotomy and primary repair, thromboembolectomy of L SFA/PFA/ENGINEERING DESIGN SUPERVISOR, reperfusion venous drainage for 250 cc, [...] Discharge Condition: Good Discharge to: Home with [facility] [place] [place] [address] Future Appointments and Orders Future Appointments and Orders Future Appointments Provider Department Dept Phone 05/23/2022 10:30 AM Loretta Cohen MD Dermatology at [facility] Arrive at: Digital Research Analyst [address] [place] [address] 06/07/2022 1:30 PM Gail Rae APRN Vascular Surgery at [facility] Arrive at: Digital Research Analyst [address] [phone] 06/13/2022 7:30 AM Edson Lagos [place] Vascular Lab at [facility] Arrive at: Digital Research Analyst Area 3V [phone] 06/13/2022 8:00 AM Fito Summers MD Vascular Surgery at [facility] Arrive at: Digital Research Analyst Area 3V [phone] 06/13/2022 10:00 AM Alan Reid MD Cardiology at [facility] Arrive at: Digital Research Analyst Area [phone] Future Orders Complete By Expires Ziopatch 48 Hrs-15 Days [QTQ5554 CPT(R)] 05/21/2022 11/20/2022 Process Instructions: Scheduling Instructions: Comments: Questions: Does the patient have a pacemaker? If yes provide HI/LO settings: Apply for 7 or 14 days?: 7 Where will study be performed?: [facility] JOSSELYN, legs, multiple levels [VAS8 Custom] 06/21/2022 (Approximate) 12/21/2022 Process Instructions: There is no in-house vascular oil laboratory analyst available on weeknights (5pm-8am), weekends, or holidays. IF THIS IS A REQUEST FOR AN EMERGENT STUDY DURING THOSE HOURS, please have the senior provider responsible for the patient page the Vascular Surgery Fellow/Senior Resident manager global communications to discuss options. Scheduling Instructions: Questions: Indication for study/signs & symptoms: ALI s/p L fem cutdown with thromboembolectomy Question to be answered: Perfusion to feet? Please check toe pressure Preferred location?: [facility] Referral to Cardiology [...] Koko Zamora for admission to Home Health. [address] [place] [phone] (home) Date of : 1940 Inpatient DOCUMENTATION FOR VNA SERVICES (INCLUDING THOSE PATIENTS WITH MEDICARE COVERAGE REQUIRING HOME VNA SERVICES AND/OR HOSPICE SERVICES) PATIENT'S LOCATION: Koko Zamora [address] [facility] [phone] (home) Cell: No relevant phone numbers on file. [place] Department Supervisor's Name: Koko In discussion with the attending physician, it is certified that this patient is under their care and that they, or a Nurse Practitioner,Clinical Nurse specialist or Physician High School Math Teacher who is working directly with them, had [...] for managing ADL's. HOME HEALTH CARE AGENCY: [facility]. [address] [place] [address] Start of care: Within 24 to 48 [...] obtained from this patient'sPCP: Bobby Das MD [address] [place] [address] / [place] [id number] All A agencies which cover the area [...] For any problems or questions please call [phone] For issues on weeknights after 5pm and weekends please call [phone] and ask for the Vascular Fellow manager global communications. JOSEE Santiago Vascular Surgery 05/21/2022 documented in [...] For any problems or questions please call [phone] For issues on weeknights after 5pm and weekends please call [phone] and ask for the Vascular Fellow manager global communications. documented in this encounter Medications at Time [...] 04/12/20 21 (FLONASE) 50 mcg/actuation Nare route [place], Suspension daily as needed. fluorouraciL (EFUDEX) 5 [...] status, full code. JOSEE Santiago 05/21/2022 Pager: [phone] Brannon Isaacs, PT - 05/21/2022 10:35 AM [...] plan as stated. Time IN / OUT: 9894-7979 Total Minutes, Physical Therapy: 25 Billing Code: 2 BOSTON Isaacs DPT Pager: [phone] Physical Therapy Inpatient Rehabilitation Department [place] Jean [...] 04/17/2021 in Pain and Spine Center at [facility] Weight 79.8 kg (175 [...] 3.5 4.5 CL 103 102 108* CO2 BUN 11 12 12 CREATININE 0.63* 0.74* [...] and plan of care per Dr. Mcnamara (executive secretary). Please refer to her note above for [...] limb ischemia (thromboembolic) and he is a penitentiary smoker (1/2 ppd, recommend nicotine patch). His [...] 04/17/2021 in Pain and Spine Center at [facility] Weight 79.8 kg (175 [...] 1200 CK 87 Relevant Cardiovascular Imaging: TTE 7/7/22 Interpretation Summary Left ventricle is mildly dilated. [...] findings andplan of care per Dr. Mcnamara (executive secretary). Please refer to her note above for [...] a mitral repair in 2000 (not at [facility]) with no CAD at [...] AF and the first documented HR at [facility] was 125 bpm (presented [...] patient had sudden pain starting at 630 07/06/22, he presented [facility] where he was [...] management following Dottie Hill APRN 05/20/2022 Pager: [phone] Laney Atkins RN - 05/20/2022 1:14 AM EDT Pt Koko transferred to room from [facility]. A&Ox4, oriented to room and call bell. Bradshaw and telemetry placed. In agreement with assessment [...] pulses Labs: Recent Labs 05/19/22 0326 05/18/22 33305/17/22 0333 WBC 7.4 8.8 10.4* HGB 12.1* [...] management following Dottie Hill APRN 05/19/2022 Pager: [phone] Emily Sauceda RN - 05/19/2022 6:28 AM EDT OUTCOME EVALUATION NOTE: OUTCOME SUMMARY: Patient AOx4, VSS on RA. Afib on tele. HR controlled w/ PRN metop, given x2. Denies CP, SOB, n/v. See flowsheets for NVC. Dressings to LLE CDI, prevena WV to groin intact. Voiding to urinal. LBM SURGICAL ONCOLOGIST, patient stating he will maybe try the [...] LLE C/D/I. Incisions to LLE WDL and ACCOUNTS PAYABLE LEAD. Denies n/t toBLE. 2+ dorsal pulses noted. Heparin drip infusing at 1200 units/hr. UFH within therapeutic range, next labs due with morning labs. Voiding adequately without difficulty to bedside urinal. LBM SURGICAL ONCOLOGIST. Up to chair this AM with nursing staff. Worked with PT, tolerated well. Diet changed to regular at 1800.Plan is for cardiac cath on Friday. PLAN MOVING FORWARD: Bleeding precautions Pain management neurovascular checks PT/OT laborer construction or leak gang INDIVIDUALIZED FALL PREVENTION INTERVENTIONS: Patient-specific fall risk [...] mL Intravenous BID ??? PHENobarbitaL 0.12 mg/kg/dose ([place]) Oral BID ??? thiamine 100 mg Oral [...] management following Dottie Hill APRN 05/18/2022 Pager: [phone] Brannon Isaacs, PT - 05/18/2022 10:00 AM [...] IR Biopsy Spine 07/20/2019 Bobby Marshall MD [facility] INTERVENTIONL RAD ??? IR VERTEBROPLASTY LUMBAR MULTIPLE LEVELS 07/20/2019 IR Vertebroplasty Lumbar Multiple Levels 07/20/2019 Bobby Marshall MD [facility] INTERVENTIONL RAD ??? IR VERTEBROPLASTY THORACIC SINGLE LEVEL 10/25/2020 IR Vertebroplasty Thoracic Single Level 10/25/2020 Matt Chisholm MD [facility] INTERVENTIONL RAD ??? PRO EMBLC/THRMBC FEMORAL POPLITEAL AORTO-ILIAC ARTERY Left 05/15/2022 EMBOLECTOMY OR THROMBECTOMY, FEMOROPOPLITEAL, AORTOILIAC ARTERY BY LEG INCISION (WRVU 19.48) performed by Fito Summers MD at [facility] MAIN OR Social History: Pt [...] in this evaluation. Time IN / OUT: 1685-2336 Total Minutes, Physical Therapy: 30 Billing Code: Basilio Isaacs, PT Pager: [phone] Physical Therapy Inpatient Rehabilitation Department Emily Sauceda RN - 05/18/2022 4:34 AM EDT OUTCOME EVALUATION NOTE: OUTCOME SUMMARY: Patient AOx4, VSS on 2LNC. Afib on tele. HR above 120, MD aware, PRN IV metop given x1, HR returned to 90's-low 100's. Denies CP, SOB, n/v. See flowsheets for NVC. Dressings to LLE CDI, prevena WV to groin intact. Voiding to urinal. LBM SURGICAL ONCOLOGIST. Heparin gtt therapeutic. Pain controlled. Patient sleeping [...] adequately without difficulty to bedside urinal. LBM SURGICAL ONCOLOGIST. Patient not OOB this shift. Currently NPO awaitingprocedure in labor economist. PLAN MOVING FORWARD: Bleeding precautions Pain management neurovascular checks PT/OT NPO for labor economist INDIVIDUALIZED FALL PREVENTION INTERVENTIONS: Patient-specific fall risk [...] 05/17/2022 2:40 PM EDT Physical Therapy 05/17/22 3260 Evaluation & Treatment Document Type contact Total Minutes, Physical Therapy 10 Comment, Session Not Performed Orders recieved on Koko Zamora who is a 81 y.o male with history of atrial fibrillation not on anticoagulation, and GI bleeding who presented to the Emergency Department as a transfer from [facility] with left lower extremity limb ischemia. He went to [facility] and was startedon heparin and transferred to [facility] for evaluation by vascular surgery [...] will will be going to the labor economist for evaluation. Will defer PT eval at present but will see as ordered post cardiac catheritizaton. Social Hx:Pt lives with his Ursula in [place], [place] in a 2 level home in [...] WBAT LLE LISBET HERMAN PT Pager # [phone] In-Pt Rehab Medicine Dottie Hill, HIRAL - 05/17/2022 7:42 AM EDT Vascular Surgery [...] mL Intravenous BID ??? PHENobarbitaL 0.24 mg/kg/dose ([place]) Oral BID Followed by ??? [START ON 05/18/2022] PHENobarbitaL 0.12 mg/kg/dose ([place]) Oral BID ??? thiamine 100 mg Oral [...] management following Dottie Hill APRN 05/17/2022 Pager: [phone] Sary Dos Santos RN - 05/17/2022 12:16 [...] mL Intravenous BID ??? PHENobarbitaL 0.48 mg/kg/dose ([place]) Oral BID Followed by ??? [START ON 05/17/2022] PHENobarbitaL 0.24 mg/kg/dose ([place]) Oral BID Followed by ??? [START ON 05/18/2022] PHENobarbitaL 0.12 mg/kg/dose ([place]) Oral BID ??? thiamine 100 mg Oral [...] management following Edward Rodríguez MD 05/16/2022 Pager: [phone] Sary Dos Santos RN - 05/16/2022 12:52 [...] Gutierrez RN - 05/15/2022 6:49 PM EDT 1629 Patient admitted to PACU. Hand off received from Torres Aguilar CRNA. care assumed. Hypotensive by A-line, waveform dampened. Will rely on cuff. Assessments as documented. Monitors on, alarms audible and individualized to patient. 1929 PACU D/C criteria met 2129 Hand off to DION Ramirez 3 [place] documented in this encounter H&P Notes Kerry [...] starting at 630 this morning he presented [facility] where he was [...] IR Biopsy Spine 07/20/2019 Bobby Marshall MD [facility] INTERVENTIONL RAD ??? IR VERTEBROPLASTY LUMBAR MULTIPLE LEVELS 07/20/2019 IR Vertebroplasty Lumbar Multiple Levels 07/20/2019 Bobby Marshall MD [facility] INTERVENTIONL RAD ??? IR VERTEBROPLASTY THORACIC SINGLE LEVEL 10/25/2020 IR Vertebroplasty Thoracic Single Level 10/25/2020 Matt Chisholm MD [facility] INTERVENTIONL RAD Social Hx: Social [...] Refill ??? fluticasone propionate (FLONASE) 50 mcg/actuation [place], Suspension as needed. ??? fluorouraciL (EFUDEX) 5 [...] and consented. Tim Chicas MD 05/15/2022 Pager: [phone] documented in this encounter ED Notes Lc Harris PA - 05/15/2022 1:20 PM EDT ED Provider Note HPI: Koko Zamora is a 81 y.o. male with history of atrial fibrillation not on anticoagulation, and GI bleeding who presents to the Emergency Department as a transfer from [facility] with left lower extremity limb ischemia. Patient says that the symptoms started roughly 630 this morning when he developed severe pain in his left lower extremity. He went to [facility] and was started on heparin and transferred to [facility] for evaluation by vascular surgery. [...] lower extremity earlier today and went to [facility] where it was determined that he [...] orders before pt. Arrival. Pt. Arrived at [facility] by EMS at 1150, [...] information for follow-up Home Health & Hospice, [address] [place] [address] Transportation: family or friend will provide Functional status prior to admission: Independent Home Environment: Others in the home: spouse, pet(s) (Collie- Christie). Current Living Arrangements: home/apartment/condo. Accessibility Concerns:4 step to enter. Current Functional Ability: DME used at home: commode chair, walker - rolling, raised toilet seat DME Needed at Discharge: none anticipated Patient is insured through: Primary Insurance: MEDICARE Payor: MEDICARE / Plan: MEDICARE PART A & B / Product Type: *No Product type* / Secondary Insurance: [facility] Prescription Coverage: Yes This plan was formulated with input from patient and team. All are in agreement with plan. RS has communicated with [place] - for initial BRENDAN. Shawn López RN (Jonas) RN/CM - Cellphone: [phone] Pager: [phone] Covering Service RN/CM Plan of Care - [...] catheterization, transferred in hospital bed accompanied by Hot Mill Shearer RN, remains on telemetry monitoring. Heparin gtt [...] ADLs]: Arms reach Surveillance [continuous indirect monitoring]: [place], remote telemetry, purposeful rounding Patient-specific fall prevention [...] Type: *No Product type* / Secondary Insurance: [facility] Last Physical Therapy Recommendation: home with home health, home with supervision with None Last Occupational Therapy Recommendation: with Plan for discharge is: Home w/ Services Outpatient Agency/Support Group Needs: None Home Health Services: Registered Nurse, Physical Therapy, Occupational Therapy Agency Referrals: I have met with the patient to: ?? discuss discharge planning needs. ?? provide the [facility], Office of Care Management letter from the Hospice Case Manager pertaining to rehab referrals. ?? provide a letter describing our affiliations within the [facility] and educate about their right to choose where referrals are sent. ?? provide a list of Home Health Agencies / Durable Medical Equipment vendors which serve their preferred geographic area. ?? provided patient with [facility] Star Quality Rating handout. They have requested referrals to: [facility] [place]. [address] [place] [address] Note routed to a Fourth Mate who will communicate referrals to facilities and provide any required information. Transportation: family or friend will provide Barriers to discharge: None Plan going forward: Patient is going for a cardiac cath today and plan will come from there. Patientwas recently seen by PT and they recommend VNA at time of discharge. [place] was routed and pendedat this time. Care Management will continue to follow and assist with discharge planning and coordination of care as indicated. Anticipated Date of Discharge: 05/21/2022 Nataly RICHMOND RN Phone: [phone] Pager: [phone] Plan of Care - Laney Atkins RN [...] [facility] [place] [address] [address] INPATIENT CARDIOLOGY CONSULT NOTE Date of Consultation: 05/17/2022 Admit Date: 05/15/2022 Hospital Day 2 days Reason for Consult: New afib Active Problems: Active Hospital Problems Diagnosis Limb ischemia Resolved Hospital Problems No resolved problems to display. HPI: Koko Zamora is a 81 y.o. male with a PMHx significant for MVP (s/p MV repair 2000), tobacco use, HLD, who presented to [facility] from OSH on 05/15 with acute limb ischemia of LLE and was found to be in atrial fibrillation. Patient had sudden onset LLE pain on 05/15 and presented to [facility], where he was started on heparin and transferred to [facility]. Upon arrival to [facility], patient was in atrial [...] IR Biopsy Spine 07/20/2019 Bobby Marshall MD [facility] INTERVENTIONL RAD IR VERTEBROPLASTY LUMBAR MULTIPLE LEVELS 07/20/2019 IR Vertebroplasty Lumbar Multiple Levels 07/20/2019 Bobby Marshall MD [facility] INTERVENTIONL RAD IR VERTEBROPLASTY THORACIC SINGLE LEVEL 10/25/2020 IR Vertebroplasty Thoracic Single Level 10/25/2020 Matt Chisholm MD [facility] INTERVENTIONL RAD PRO EMBLC/THRMBC FEMORAL POPLITEAL AORTO-ILIAC ARTERY Left 05/15/2022 EMBOLECTOMY OR THROMBECTOMY, FEMOROPOPLITEAL, AORTOILIAC ARTERY BY LEG INCISION (WRVU 19.48) performed by Fito Summers MD at [facility] MAIN OR Allergies Allergen Reactions Aspirin Other (See Comments) GI bleed Out-Patient Medications: Medications Prior to Admission Medication Sig Dispense Refill Last Dose fluorouraciL (EFUDEX) 5 % Cream daily. CRESTOR 40 mg Tablet Take 40 mg by mouth daily. fluticasone propionate (FLONASE) 50 mcg/actuation [place], Suspension as needed. ascorbic acid, vitamin C, [...] 5 mL Intravenous BID PHENobarbitaL 0.24 mg/kg/dose ([place]) Oral BID Followed by [START ON 05/18/2022] PHENobarbitaL 0.12 mg/kg/dose ([place]) Oral BID thiamine 100 mg Oral Daily folic acid 1,000 mcg Oral Daily multivitamin with minerals 1 tablet Oral Daily heparin (porcine) infusion 1,200 Units/hr (05/17/22 8540) Family History: No family history on file. [...] 04/17/2021 in Pain and Spine Center at [facility] Weight 79.8 kg (175 [...] continue to follow Anne-Marie Larson MD Pager [phone] Clinic: [phone] 05/17/22 6:22 PM Initial Assessments - Ifrah [...] spouse would be surrogate decision maker per [place] surrogate decision making law. (Only good for 180 days) Any patient receiving care at [facility] must abide by [place] law. The hierarchy [...] raised toilet seat Home Address confirmed as: [address] [place] [phone] Social & Family Supports: All names listed below confirmed with patient as Incorrect. Will notify toni to correct. Wifes address is same as and phone is [phone]. Extended Emergency Contact Information Primary Emergency Contact: Ursula Zamora Address: [address] [place] [address] [place] [phone] [facility] Relation: Spouse Current Care Provided by: [...] Type: *No Product type* / Secondary Insurance: [facility] Prescription Coverage: Yes Preferred Pharmacy: [id number] - [place], [place] - [address] [facility] [address] [place] [place] [address] [id number] - [place], [place] - [address] [facility] [address] [facility] [address] [place] Status: Patient is a : unable to assess Primary Care Provider: Bobby Das MD [phone] Patient/Caregiver Goals of Treatment: to walk again Potential Needs for Transition of Care: none noted per 05/16 IDR Transportation: family will provide Transportation Anticipated: family or friend will provide Concerns to be Addressed: no discharge needs identified Assessment: Patient is admitted to vascular surg service for left lower extremity limb ischemia Plan: Per PT OT recommendations . Has used [email or web address] in the past. A member of the Care Management team will continue to monitor progress, follow for continuity of care and assist with transition of care planning. Ifrah Bell RN BSN Therapist [employer]iation[employer]il Refiner of Care Management Pager [phone] Brief Op Note - Erin Garza MD - 05/15/2022 5:04 PM EDT Brief Operative Note Patient Name: Koko Zamora : [id number] MR#: [id number] Case Date: 05/15/2022 Surgeon: Surgeon(s) and Role: [...] Garza MD - 05/15/2022 2:08 PM EDT [facility] Operative Note Patient Name: Koko Zamora : [id number] MR#: [id number] Case Date: 05/15/2022 Surgeon: Surgeon(s) and Role: [...] TH Visit (TeleHealth) Gastroenterology Dixon Collins MD [facility] GASTROENTEROLOGY DEPT [place], [place] [address] (Wo rk) 09/05/2022 Appointment Cardiology Trinity Reid MD [facility] CARDIOLOGY [place], [place] [address] (Wo rk) 09/05/2022 Office Visit Cardiology Trinity Reid MD [facility] CARDIOLOGY [place], [place] [address] (Wo rk) 10/02/2022 Clinical Support Dermatology Thai Lynn MD [facility] DR JENNY BILLY-DERMAT [place], [place] [address] (Wo rk) 10/02/2022 Procedure visit Dermatology Jace Lynn MD [facility] DR JENNY BILLY[place]DER[place], [place] [address] (Wo rk) Scheduled Referrals Name [...] Component Value Ref Test Analysis Performed At [facility] Range Method Time Signature VB Text Department: Vascular Surgery Lab VASCUBASE Report Patient: [id number] (KOKO ZAMORA) CPT: 68593 Referring Physician: FITO SUMMERS ?? Phone: Indications: s/p L ENGINEERING DESIGN SUPERVISOR endart. Diabetes mellitus: no Findings: Right [...] Signature Heparin UFH 0.42 IU/mL [facility] LABORATORY Comment: Heparin [...] EDT Resulting Agency Comment Spec In Lab Fiot Summers MD HEMATOLOGY ORDERABLES Performing Organization Address City/State/ZIP Code Phon e Number [place] [id number] LAB[address] Differential, Automated (05/21/2022 6:15 AM EDT) athologist Signature Neutrophils % 58.8 % [facility] LABORATORY Neutr Abs (ANC) 3.97 1.70 - [facility] 6.10 [facility] x10(3)/[facility] LABORATORY Lymphocytes % 25.2 % [facility] Lymphocytes Abs 1.7 0.9 - 3.2 [facility] x10(3)/[facility] LABORATORY Monocytes % 12.9 % [facility] LABOR[facility] Monocyte Abs 0.9 0.3 - 0.9 [facility] x10(3)/[facility] LABORATORY Eosinophils % 2.1 % [facility] LABOR[facility]ORY Eosinophils Abs 0.1 0.0 - 0.4 [facility] x10(3)/[facility] LABORATORY Basophils % 0.4 % [facility] LABORATORY Basophils Abs 0.0 0.0 - 0.1 [facility] x10(3)/[facility] LABORATORY Immature Gran % 0.60 % [...] Rain Gran Abs 0.04 0.00 - 0.04 x10(3)/[facility] LABORATORY Specimen Anatomical Collection Method Collection Time Receive d Time (Source) Location / / Volume Laterality Blood 05/21/2022 6:15 AM 2 6:38 EDT AM EDT Resulting Agency Comment Spec In Lab Edward Rodríguez MD HEMATOLOGY ORDERABLES Performing Organization Address City/State/[place] [address] (ABNORMAL) Hemogram (05/21/2022 6:15 AM EDT) [facility] gist Method Time Signature WBC 6.8 4.0 - 9.5 [facility] x10(3)/[facility] LABORATORY RBC 3.59 (L) 4.58 - [facility] 5.54 [facility] x10(6)/[facility] LABORATORY Hemoglobin 11.8 (L) 13.7 - [facility] 16.5 g/dL [facility] LABORATORY Hematocrit 34.5 (L) 40.5 - [facility] 48.5 % [facility] LABORATORY MCV 96.1 (H) 82.9 - [facility] 93.1 [facility] ER LABORATORY MCH 32.9 (H) 27.5 - [facility] [facility] 32.1 pg [facility] MCHC 34.2 32.0 - [facility] g/dL [facility] Platelets 198 145 - 357 [facility] x10(3)/[facility] LABORATORY RDWSD 44.9 36.0 - [facility]0 [facility] ER LABORATORY RDWCV 12.6 11.4 - [facility] 13.8 % [facility] LAB[facility]ORY MPV 10.0 7.6 - 12.9 [facility] LABORATORY nRBC % Auto 0.3 % [facility] LABORATORY nRBC Abs Auto 0.020 (H) 0.000 - [facility] 0.000 [facility] x10(3)/[facility] LABORATORY Specimen Anatomical Collection Method Collection Time Receive d Time (Source) Location / / Volume Laterality Blood 05/21/2022 6:15 AM 6:38 EDT AM EDT Resulting Agency Comment Spec In Lab Edward Rodríguez MD HEMATOLOGY ORDERABLES Performing Organization Address City/[facility]/[place] [address] EKG 12 Lead (05/20/2022 7:04 PM EDT) Component Value Ref Range Test Analysis Performed Pathologis t Method Time At Signature Ventricular rate 101 BPM MUSE SYSTEM QRS Duration 116 ms MUSE SYSTEM Q-T Interval 378 ms MUSE SYSTEM QTC Calculated 490 ms MUSE SYSTEM (Bezet) Calculated R Purdin -53 degrees MUSE SYSTEM Calculated T Purdin 101 degrees MUSE SYSTEM INTERPRETATION Atrial fibrillation [...] Laterality Volume Narrative 05/20/2022 7:09 PM EDT ?[facility] ? Cardiac Cathete rization/Intervention Report ? Patient Name: Zamora, Koko J. ? Procedure Date: 05/20/2022 ? A #: [id number] ? Primary Physician: Malathi, Abundio S ? Case #: [id number] ? File Name: [id number] ? Catheterization Order Number: [id number] ? [facility] ? Final Report [place], [place] ? Patient Name: ? Koko Sullivan. Klarissa uson ? ID#: ?[id number] ? : ?1940 ? Procedure Date: ? May 20, 2022 ?Case #: ? Room: ? 1 ? Case Physician: ? Abundio roldan, MRyan. ? Start: ?17:16 ? Admission: ??05/15/2022 ? Referring Physician: ??Sam Hernandez PAlmitaAAlmita ?Discharge: ??05/21/2022 ? Procedures: ?* Coronary Angiography [...] was Urgent. The indication for ?the labor economist visit is cardiomyo nita. Chest pain symptom [...] ?3.5 guiding catheter and a 3.[address] ??20 Mhz. ??Imaging ?was successful. ??Image [...] A premounted 2. 75 x 30 mm Hermon [place] (AMPARO) was deployed ? with a maximum [...] require ?modification of this regimen. C onsult [facility] Interventional Cardiology for ?questions. ?The 1 [...] M.D. ? Electronically Signed by: Abundio ruiz MRyan. ? Report Finalized: 05/20/2022 ??19:01 ? Report Last Ammended: 07/12/2022 ??10:16 ? Procedure Note Abundio Servin MD - 07/12/2022Format ting of this note might be different from the original. [facility] Cardiac Catheterization/Intervention Re port Patient Name: Koko Zamora Procedure Date: 05/20/2022 A #: [id number] Primary Physician: Abundio Servin Case #: File Name: [id number] Catheterization Order Number: [id number] [facility] Final Report [place], [place] Patient Name: Koko Zamora ID#: [id number] : 1940 Procedure Date: May 20, 2022 [...] IV. The [facility] clinical frailty scale is 3: Managing Well. [...] was Urgent. The indication for the labor economist visit is cardiomyopathy. C hest pain symptom assessment was: Typical Angina. Technique: A 6 SLFr sheath was inserted in the [facility] radial artery utilizing the Seldinger technique. The [...] 3.5 guiding catheter and a 3.[address] 20 Mhz. Imaging was successful. Image [...] A premounted 2.75 x 30 mm Rudy [place] (AMPARO) was deployed with a maximum inflation [...] require modification of this regimen. Consult [facility] Interventional Cardiology [...] Signature POC Glucose 123 65 - 199 [facility] mg/dL [facility] LAB[facility]ORY Comment: Supplemental ranges: <140 mg/dL before meals <180 mg/dL all other times of the day Specimen Anatomical Collection Method Collection Time Receive d Time (Source) Location / / Volume Laterality Blood 05/20/2022 5:42 PM 2 5:42 EDT PM EDT Fito Summers MD POINT OF CARE TEST ORDERABLE S Performing Organization Address City/State/ZIP Code Phon e Number [place] [id number]OS[address] LAB[address]ORY [address] (ABNORMAL) BMP w/fasting Glucose (05/20/2022 10:50 AM EDT) P athologist Signature Glucose 152 (H) 65 - 99 [facility] Fasting mg/dL [facility] LAB[facility] Comment: ?Fasting* Glucose Interpretive C [...] of Diabetes Mellitus, Position Statement from the [place] [employer]. ??Diabete s Care, Volume 33, [...] - [facility]/[place] [address] Heparin (unfractionated) Level (05/20/2022 5:02 AM EDT) athologist Signature Heparin UFH 0.57 IU/mL [facility] LABORATORY Comment: Heparin [...] - [facility]/ZIP Code Phon e Number [address] (ABNORMAL) Differential, Automated (05/20/2022 5:02 AM EDT) Patholo gist Method Time Signature Neutrophils % 58.1 % [facility] LABORATORY Neutr Abs (ANC) 4.52 1.70 - [facility] 6.10 [facility] x10(3)/[facility] LABORATORY Lymphocytes % 24.1 % [facility] LAB[facility] Lymphocytes Abs 1.9 0.9 - 3.2 [facility] x10(3)/[facility] LABORATORY Monocytes % 13.8 % [facility] LABOR[facility] Monocyte Abs 1.1 (H) 0.3 - 0.9 [facility] x10(3)/[facility] LABORATORY Eosinophils % 2.6 % [facility] Eosinophils Abs 0.2 0.0 - 0.4 [facility] x10(3)/[facility] LABORATORY Basophils % 0.8 % [facility] LABORATORY Basophils Abs 0.1 0.0 - 0.1 [facility] x10(3)/[facility] LABORATORY Immature Gran % 0.60 % [...] 0.05 (H) 0.00 - 0.04 x10(3)/[facility] LABORATORY Specimen Anatomical Collection Method Collection Time Receive d Time (Source) Location / / Volume Laterality Blood 05/20/2022 5:02 AM 2 5:19 EDT AM EDT Resulting Agency Comment Spec In Lab Edward Rodríguez MD HEMATOLOGY ORDERABLES Performing Organization Address City/State/[place] [address] (ABNORMAL) Hemogram (05/20/2022 5:02 AM EDT) Analysis Performed At Patho logist Time Signature WBC 7.8 4.0 - 9.5 [facility] x10(3)/[facility] LABORATORY RBC 3.53 (L) 4.58 - [facility] 5.54 [facility] x10(6)/[facility] LABORATORY Hemoglobin 11.4 (L) 13.7 - [facility] 16.5 g/dL [facility] LABORATORY Hematocrit 34.3 (L) 40.5 - [facility] 48.5 % [facility] LABORATORY MCV 97.2 (H) 82.9 - [facility] 93.1 [facility] ER LABORATORY MCH 32.3 (H) 27.5 - [facility] 32.1 pg [facility] LABORATORY MCHC 33.2 32.0 - [facility] 35.7 g/dL [facility] LABORATORY Platelets 181 145 - 357 [facility] x10(3)/[facility] LABORATORY RDWSD 46.4 (H) 36.0 - [facility] 45.0 [facility] RDWCV 13.0 11.4 - [facility] 13.8 % [facility] LABORATORY MPV 10.4 7.6 - 12.9 [facility] LABORATORY nRBC % Auto 0.0 % [facility] LABORATORY nRBC Abs Auto 0.000 0.000 - [facility] 0.000 [facility] x10(3)/[facility] LABORATORY Specimen Anatomical Collection Method Collection Time Receive d Time (Source) Location / / Volume Laterality Blood 05/20/2022 5:02 AM 2 5:19 EDT AM EDT Resulting Agency Comment Spec In Lab Edward Rodríguez MD HEMATOLOGY ORDERABLES Performing Organization Address City/State/[place] [address] Heparin (unfractionated) Level (05/19/2022 3:26 AM EDT) P athologist Signature Heparin UFH 0.59 IU/mL [facility] LABORATORY Comment: Heparin [...] Organization Address City/State/[place] [address] (ABNORMAL) Differential, Automated (05/19/2022 3:26 AM EDT) [facility] gist Method Time Signature Neutrophils % 62.1 % [facility] LABOR[facility] Neutr Abs (ANC) 4.59 1.70 - [facility] 6.10 [facility] x10(3)/[facility] LABORATORY Lymphocytes % 22.1 % [facility] LABORATORY Lymphocytes Abs 1.6 0.9 - 3.2 [facility] x10(3)/[facility] LABORATORY Monocytes % 13.5 % [facility] LABORATORY Monocyte Abs 1.0 (H) 0.3 - 0.9 [facility] x10(3)/[facility] LABORATORY Eosinophils % 1.3 % [facility] LAB[facility] Eosinophils Abs 0.1 0.0 - 0.4 [facility] x10(3)/[facility] LABORATORY Basophils % 0.5 % [facility] LABOR[facility] Basophils Abs 0.0 0.0 - 0.1 [facility] x10(3)/[facility] LABORATORY Immature Gran % 0.50 % [...] Rain Gran Abs 0.04 0.00 - 0.04 x10(3)/[facility] LABORATORY Specimen Anatomical Collection Method Collection Time Receive d Time (Source) Location / / Volume Laterality Blood 05/19/2022 3:26 AM 2 3:59 EDT AM EDT Resulting Agency Comment Spec In Lab Edward Rodríguez MD HEMATOLOGY ORDERABLES Performing Organization Address City/State/[place] [address] (ABNORMAL) Hemogram (05/19/2022 3:26 AM EDT) Analysis Performed At Patho logist Time Signature WBC 7.4 4.0 - 9.5 [facility] LABORATORY RBC 3.74 (L) 4.58 - [facility] 5.54 [facility] x10(6)/[facility] LABORATORY Hemoglobin 12.1 (L) 13.7 - [facility] 16.5 g/dL [facility] LABORATORY Hematocrit 36.4 (L) 40.5 - [facility] 48.5 % [facility] LABORATORY MCV 97.3 (H) 82.9 - [facility] 93.1 [facility] ER LABORATORY MCH 32.4 (H) 27.5 - [facility] 32.1 pg [facility] LABORATORY MCHC 33.2 32.0 - [facility] 35.7 g/dL [facility] LABORATORY Platelets 168 145 - 357 [facility] x10(3)/[facility] LABORATORY RDWSD 46.9 (H) 36.0 - [facility] 45.0 [facility] ER LABORATORY RDWCV 13.0 11.4 - [facility] 13.8 % [facility] LABORATORY MPV 10.5 7.6 - 12.9 [facility] nRBC % Auto 0.0 % [facility] LABORAT[facility] nRBC Abs Auto 0.000 0.000 - [facility] 0.000 [facility] x10(3)/[facility] LABORATORY Specimen Anatomical Collection Method Collection Time Receive d Time (Source) Location / / Volume Laterality Blood 05/19/2022 3:26 AM 2 3:59 EDT AM EDT Resulting Agency Comment Spec In Lab Edward Rodríguez MD HEMATOLOGY ORDERABLES Performing Organization Address City/State/ZIP Code [place] [address] TSH (05/18/2022 8:00 PM EDT) P athologist Signature TSH 2.27 0.27 - 4.20 [facility] mcIU/mL [facility] LABORATORY Comment: Reference Interval (mcIU/mL): Females: ??First Trimester: 0.23-3.88 ??Second Trimester: 0.22-3.90 ??Third Trimester: 0.44-4.66 Specimen Anatomical Collection Method Collection Time Receive d Time (Source) Location / / Volume Laterality Blood 05/18/2022 8:00 PM 8:06 EDT PM EDT Resulting Agency Comment Spec In Lab Fito Summers MD CHEMISTRY ORDERABLES Performing Organization Address City/State/ZIP Code Phon e Number [address] (ABNORMAL) Differential, Automated (05/18/2022 3:34 AM EDT) Patholo gist Method Time Signature Neutrophils % 67.2 % [facility] LABORATORY Neutr Abs (ANC) 5.89 1.70 - [facility] 6.10 [facility] x10(3)/[facility] LABORATORY Lymphocytes % 17.1 % [facility] LABOR[facility] Lymphocytes Abs 1.5 0.9 - 3.2 [facility] x10(3)/[facility] LABORATORY Monocytes % 13.6 % [facility] LABORATORY Monocyte Abs 1.2 (H) 0.3 - 0.9 [facility] x10(3)/[facility] LABORATORY Eosinophils % 1.0 % [facility] LABORATORY Eosinophils Abs 0.1 0.0 - 0.4 [facility] x10(3)/[facility] LABORATORY Basophils % 0.6 % [facility] LABORATORY Basophils Abs 0.0 0.0 - 0.1 [facility] x10(3)/[facility] LABORATORY Immature Gran % 0.50 % [...] Rain Gran Abs 0.04 0.00 - 0.04 x10(3)/[facility] LABORATORY Specimen Anatomical Collection Method Collection Time Receive d Time (Source) Location / / Volume Laterality Blood 05/18/2022 3:34 AM 3:48 EDT AM EDT Resulting Agency Comment Spec In Lab Edward Rodríguez MD HEMATOLOGY ORDERABLES Performing Organization Address City/State/[place] [address] (ABNORMAL) Hemogram (05/18/2022 3:34 AM EDT) Analysis Performed At Patho logist Time Signature WBC 8.8 4.0 - 9.5 [facility] x10(3)/[facility] LABORATORY RBC 3.45 (L) 4.58 - [facility] 5.54 [facility] x10(6)/[facility] LABORATORY Hemoglobin 11.2 (L) 13.7 - [facility] 16.5 g/dL [facility] LABORATORY Hematocrit 33.0 (L) 40.5 - [facility] 48.5 % [facility] LABORATORY MCV 95.7 (H) 82.9 - [facility] 93.1 [facility] ER LABORATORY MCH 32.5 (H) 27.5 - [facility] 32.1 pg [facility] LABORATORY MCHC 33.9 32.0 - [facility] 35.7 g/dL [facility] LABORATORY Platelets 130 (L) 145 - 357 [facility] x10(3)/[facility] LABORATORY RDWSD 46.2 (H) 36.0 - [facility] 45.0 [facility] ER LABORATORY RDWCV 13.2 11.4 - [facility] 13.8 % [facility] LABORATORY MPV 10.8 7.6 - 12.9 [facility] LABORATORY nRBC % Auto 0.0 % [facility] LABORATORY nRBC Abs Auto 0.000 0.000 - [facility] 0.000 [facility] x10(3)/[facility] LABORATORY Specimen Anatomical Collection Method Collection Time Receive d Time (Source) Location / / Volume Laterality Blood 05/18/2022 3:34 AM 2 3:48 EDT AM EDT Resulting Agency Comment Spec In Lab Edward Rodríguez MD HEMATOLOGY ORDERABLES Performing Organization Address City/[facility]/[place] [address] [facility] [address] Heparin (unfractionated) Level (05/18/2022 3:34 AM EDT) athologist Signature Heparin UFH 0.59 IU/mL [facility] LABORATORY Comment: Heparin [...] Organization Address City/State/[place] [address] Magnesium (05/17/2022 3:33 AM EDT) athologist Signature Magnesium 0.76 0.69 - 1.07 [facility] mmol/L [facility] LABORATORY Specimen Anatomical Collection Method Collection Time Receive d Time (Source) Location / / Volume Laterality Blood Venous Draw / 05/17/2022 3:33 AM 05/17/20 22 4:05 Unknown EDT AM EDT Resulting Agency Comment Spec In Lab [place] HIRAL CHEMISTRY ORDERABLES Performing Organization Address City/State/[place] [address] (ABNORMAL) Basic Metabolic Panel (non-fasting) (05/17/2022 3:33 AM EDT) P athologist Signature Glucose Lvl 158 65 - 199 [facility] mg/dL [facility] LABORATORY Comment: Diabetes: >=200 mg/dL plus [...] Organization Address City/State/[place] [address] (ABNORMAL) Differential, Automated (05/17/2022 3:33 AM EDT) [facility] gist Method Time Signature Neutrophils % 65.5 % [facility] LABORATORY Neutr Abs (ANC) 6.84 (H) 1.70 - [facility] 6.10 [facility] x10(3)/[facility] LABORATORY Lymphocytes % 19.7 % [facility] LABORATORY Lymphocytes Abs 2.1 0.9 - 3.2 [facility] x10(3)/[facility] LABORATORY Monocytes % 13.1 % [facility] LABORATORY Monocyte Abs 1.4 (H) 0.3 - 0.9 [facility] x10(3)/[facility] LABORATORY Eosinophils % 0.6 % [facility] LABORATORY Eosinophils Abs 0.1 0.0 - 0.4 [facility] x10(3)/[facility] LABORATORY Basophils % 0.6 % [facility] LABORATORY Basophils Abs 0.1 0.0 - 0.1 [facility] x10(3)/[facility] LABORATORY Immature Gran % 0.50 % [facility] [...] 0.05 (H) 0.00 - 0.04 x10(3)/[facility] LABORATORY Specimen Anatomical Collection Method Collection Time Receive d Time (Source) Location / / Volume Laterality Blood 05/17/2022 3:33 AM 2 3:53 EDT AM EDT Resulting Agency Comment Spec In Lab Edward Rodríguez MD HEMATOLOGY ORDERABLES Performing Organization Address City/State/[place] [address] (ABNORMAL) Hemogram (05/17/2022 3:33 AM EDT) Analysis Performed At Patho logist Time Signature WBC 10.4 (H) 4.0 - 9.5 [facility] x10(3)/[facility] LABORATORY RBC 3.72 (L) 4.58 - [facility] 5.54 [facility] x10(6)/[facility] LABORATORY Hemoglobin 12.0 (L) 13.7 - [facility] 16.5 g/dL [facility] LABORATORY Hematocrit 36.4 (L) 40.5 - [facility] 48.5 % [facility] LABORATORY MCV 97.8 (H) 82.9 - [facility] 93.1 [facility] ER LABORATORY MCH 32.3 (H) 27.5 - [facility] 32.1 pg [facility] LABORATORY MCHC 33.0 32.0 - [facility] 35.7 g/dL [facility] LABORATORY Platelets 149 145 - 357 [facility] x10(3)/[facility] LABORATORY RDWSD 48.7 (H) 36.0 - [facility] 45.0 [facility] ER LABORATORY RDWCV 13.5 11.4 - [facility] 13.8 % [facility] LABORATORY MPV 10.6 7.6 - 12.9 [facility] nRBC % Auto 0.0 % [facility] LABORATORY nRBC Abs Auto 0.000 0.000 - [facility] 0.000 [facility] x10(3)/[facility] LABORATORY Specimen Anatomical Collection Method Collection Time Receive d Time (Source) Location / / Volume Laterality Blood 05/17/2022 3:33 AM 2 3:53 EDT AM EDT Resulting Agency Comment Spec In Lab Edward Rodríguez MD HEMATOLOGY ORDERABLES Performing Organization Address City/State/[place] [address] (ABNORMAL) Urinalysis Microscopic Exam [...] Address City/State/ZIP Code Phon e Number [address] (ABNORMAL) Urinalysis with reflex Culture (05/16/2022 11:15 PM EDT) Patholo gist Method Time Signature Glucose UA Negative Negative [facility] mg/dL [facility] LABORATORY Protein UA Negative Negative [facility] mg/dL [facility] LABORATORY Bilirubin UA Negative Negative [facility] mg/dL [facility] LABORATORY Comment: Clinical correlation required for [...] [facility] LABOR[facility] Nitrite UA Negative Negative [facility] LABORATORY Leukocytes UA Negative Negative [facility] LABORATORY Appearance UA Clear Clear [facility] LABORATORY Spec [place] UA 1.021 1.005 - 1.030 [facility] LABORATORY Color UA Yellow Yellow [facility] LABORATORY Culture Reflexed No [facility] LABORATORY Specimen Anatomical Collection Method Collection Time Receive d Time (Source) Location / / Volume Laterality Clean Catch 05/16/2022 11:15 05/16/2022 Urine PM EDT 11:30 PM EDT Resulting Agency Comment Spec In Lab Fito Summers MD URINE ORDERABLES Performing Organization Address City/[facility]/[place] [address] Heparin (unfractionated) Level (05/16/2022 10:59 PM EDT) athologist Signature Heparin UFH 0.65 IU/mL [facility] LABORATORY Comment: Specimen drawn more than one [...] - [facility]/[place] [address] XR Chest One View [...] who have questions please contact the health primary care md that requested your imaging first. ? Narrative [...] ho have questions please contact the health primary care md that requested your imaging first. Fito Summers MD IMG DX ORDERABLES EKG 12 Lead (05/16/2022 8:57 PM EDT) Component Value Ref Range Test Analysis Performed Pathologis t Method Time At Signature Ventricular rate 117 BPM MUSE SYSTEM QRS Duration 112 ms MUSE SYSTEM Q-T Interval 346 ms MUSE SYSTEM QTC Calculated 482 ms MUSE SYSTEM (Bezet) Calculated R Purdin -48 degrees MUSE SYSTEM Calculated T Purdin 111 degrees MUSE SYSTEM INTERPRETATION Atrial fibrillation [...] Organization Address City/[facility] Phon e Number MUSE SYSTEM Heparin (unfractionated) Level (05/16/2022 4:34 PM EDT) athologist Signature Heparin UFH 0.53 IU/mL [facility] LABORATORY Comment: Heparin [...] - [facility]/ZIP Code Phon e Number [facility] [place] [address] ECHOCARDIOGRAM COMPLETE W CONTRAST (05/16/2022 12:49 PM EDT) P athologist Signature EF 28 HEARTLAB SYSTEM Anatomical Region Laterality Modality Cardiac Other Specimen (Source) Anatomical Collection Method Collection Time Re ceived Time Location / / Volume Laterality 05/16/2022 11:22 AM EDT Narrative 05/16/2022 1:54 PM EDT ?[facility] ?[address] ? [place] [address] ?Voice: ?Fax: ? Echocardiogram Report Name: KOKO ZAMORA ?Study Date: 05/16/2022 11:22 AM ? Patient Location: [address] [place] [address] : 1940 ? Height: 67.5 in ? Account: [id number] Age: 81 yrs ? Weight: 176 lb [...] and LV systolic dysfunction are new. Procedure Complete-[id number]. Image enhancement Optiso n was used for [...] note might be different from the original. [facility] [address] [place] [address] Voice: Fax: Echocardiogram Report Name: NIURKA KOKO Sullivan Study Date: 05/2022 11:22 AM Patient Location: [address] [place] [address] : 1940 Height: 67.5 in Account: [id number] Age: 81 yrs Weight: 176 lb Gender: Male BSA: 1.9 m2 Ordering Physician: FITO SUMMERS Referring Physician: MALI FLORIAN Performed By: Jolene Bernard LOLLY Exam Location: [facility]. Interpretation Summary [...] regurgitation. Compared with the prior TTE of 10/25/201 2, moderate and LV systolic dysfunction are new. Procedure Complete-[id number]. Image enhancement Optiso n was used for [...] (ABNORMAL) Differential, Automated (05/16/2022 3:01 AM EDT) [facility] Method Time Signature Neutrophils % 78.8 % [facility] Neutr Abs (ANC) 9.11 (H) 1.70 - [facility] 6.10 [facility] x10(3)/[facility] L LABORATORY Lymphocytes % 9.4 % [facility] Lymphocytes Abs 1.1 0.9 - 3.2 [facility] x10(3)/[facility] LABORATORY Monocytes % 10.9 % [facility] Monocyte Abs 1.3 (H) 0.3 - 0.9 [facility] x10(3)/[facility] LABORATORY Eosinophils % 0.0 % [facility] Eosinophils Abs 0.0 0.0 - 0.4 [facility] x10(3)/[facility] LABORATORY Basophils % 0.3 % [facility] Basophils Abs 0.0 0.0 - 0.1 [facility] x10(3)/[facility] LABORATORY Immature Gran % 0.60 % [facility] Comment: Immature granulocytes(IG's)percentage an d absolute count will include metamyelocytes, myelocytes, and promyelo cytes. Blood smears from CBCs yielding IG's will be scanned manually for concor dance. If this scan disagrees with the automated IG or if promyelocytes are not ed, a manual differential will be performed. Rian Gran Abs 0.07 (H) 0.00 - 0.04 x10(3)/[facility] LABORATORY Specimen Anatomical Collection Method Collection Time Receive d Time (Source) Location / / Volume Laterality Blood 05/16/2022 3:01 AM 3:36 EDT AM EDT Resulting Agency Comment Spec In Lab Erin Garza MD HEMATOLOGY ORDERABLES Performing Organization Address City/State/[place] [address] (ABNORMAL) Hemogram (05/16/2022 3:01 AM EDT) Analysis Performed At Patho logist Time Signature WBC 11.6 (H) 4.0 - 9.5 [facility] x10(3)/[facility] LABORATORY RBC 3.62 (L) 4.58 - [facility] 5.54 [facility] x10(6)/[facility] LABORATORY Hemoglobin 12.0 (L) 13.7 - [facility] 16.5 g/dL [facility] LABORATORY Hematocrit 35.3 (L) 40.5 - [facility] HAGEN 48.5 % [facility] LABORATORY MCV 97.5 (H) 82.9 - [place] [place] 93.1 [facility] ER LABORATORY MCH 33.1 (H) 27.5 - [place] [place] 32.1 pg [facility] LABORATORY MCHC 34.0 32.0 - [place] [place] 35.7 g/dL [facility] LABORATORY Platelets 151 145 - 357 [facility] x10(3)/[facility] LABORATORY RDWSD 47.6 (H) 36.0 - [facility] [place] 45.0 [facility] ER LABORATORY RDWCV 13.3 11.4 - [facility] FAY[place] 13.8 % [facility] LABORATORY MPV 10.5 7.6 - 12.9 [facility] LABORATORY nRBC % Auto 0.0 % [facility] nRBC Abs Auto 0.000 0.000 - [facility] [place] 0.000 [facility] x10(3)/[facility] LABORATORY Specimen Anatomical Collection Method Collection Time Receive d Time (Source) Location / / Volume Laterality Blood 05/16/2022 3:01 AM 2 3:36 EDT AM EDT Resulting Agency Comment Spec In Lab Erin Garza MD HEMATOLOGY ORDERABLES Performing Organization Address City/[facility]/ZIP Code Phon e Number [address] Phosphorus (05/16/2022 3:01 AM EDT) P athologist Signature Phosphorus 3.7 2.5 - 4.5 [facility] mg/dL [facility] LABORATORY Specimen Anatomical Collection Method Collection Time Receive d Time (Source) Location / / Volume Laterality Blood 05/16/2022 3:01 AM 2 3:36 EDT AM EDT Resulting Agency Comment Spec In Lab Fito Summers MD CHEMISTRY ORDERABLES Performing Organization Address City/[facility] Code Phon e Number [address] Magnesium (05/16/2022 3:01 AM EDT) P athologist Signature Magnesium 0.77 0.69 - 1.07 [facility] mmol/L [facility] LABORATORY Specimen Anatomical Collection Method Collection Time Receive d Time (Source) Location / / Volume Laterality Blood 05/16/2022 3:01 AM 3:36 EDT AM EDT Resulting Agency Comment Spec In Lab Fito Summers MD CHEMISTRY ORDERABLES Performing Organization Address City/State/[place] [address] (ABNORMAL) Basic Metabolic Panel (non-fasting) (05/16/2022 3:01 AM EDT) P athologist Signature Glucose Lvl 222 (H) 65 - 199 [facility] mg/dL [facility] LABORATORY Comment: Diabetes: >=200 mg/dL plus [...] Organization Address City/State/ZIP Code Phon e Number [place] [id number] HOS[address]ITAL LAB[address]ATORY Drive (ABNORMAL) BLOOD GAS 2 ARTERIAL (05/15/2022 3:33 PM EDT) Analysis Performed At Patho logis Time Signature pH Art 7.33 (L) 7.35 - [facility] 7.45 [facility] LABORATORY pCO2 Art 41 35 - 45 [facility] LABORATORY pO2 Art 131 (H) 85 - 104 [facility] LABORATORY HCO3 Art 21.1 20.0 - [facility] 26.0 [facility] mmol/[facility] LABORATORY BE Art -4.8 (L) -3.0 - 3.0 [facility] mmol/L [facility] LABORATORY Hgb Blood Gas 13.4 (L) 13.7 - [facility] 16.5 g/dL [facility] O2HB Art 96.9 94.0 - [facility] 97.0 % [facility] LABORATORY COHB Art 1.4 % [facility] [...] Organization Address City/State/[place] [address] (ABNORMAL) BLOOD GAS 2 ARTERIAL (05/15/2022 2:06 PM EDT) Analysis Performed At Patho logist Time Signature pH Art 7.39 7.35 - [facility] 7.45 [facility] LABORATORY pCO2 Art 35 35 - 45 [facility] mmHg [facility] LABORATORY pO2 Art 135 (H) 85 - 104 [facility] LABORATORY HCO3 Art 20.8 20.0 - [facility] 26.0 [facility] mmol/L [facility] LABORATORY BE Art -4.2 (L) -3.0 - 3.0 [facility] mmol/L [facility] LABORATORY Hgb Blood Gas 14.5 13.7 - [facility] 16.5 g/dL [facility] LABORATORY O2HB Art 97.2 (H) 94.0 - [facility] 97.0 % [facility] LABORATORY COHB Art 1.2 % [facility] [...] Organization Address City/State/[place] [address] (ABNORMAL) Prothrombin Time (05/15/2022 [...] Address City/State/ZIP Code Phon e Number [address] (ABNORMAL) APTT (05/15/2022 12:30 PM [...] - [facility]/ZIP Code Phon e Number [address] Gold Tube HOLD (05/15/2022 12:20 PM EDT) athologist [facility] Gold Hold Sample in [facility]. [facility] LABORATORY Specimen Anatomical Collection Method Collection Time Receive d Time (Source) Location / / Volume Laterality Blood No Charge / 05/15/2022 12:20 05/15/2022 Unknown PM EDT 12:20 PM EDT Lc TRIPP CHEMISTRY ORDERABLES Performing Organization Address City/[facility]/ZIP Code Phon e Number [address] Type and Screen Validity (05/15/2022 12:00 PM EDT) Patholo gist Method Time Signature T&S only valid [facility] at [facility] LABORATORY Comment: This Type and Screen [...] - [facility]/ZIP Code Phon e Number [address] ABORH Recheck Status (05/15/2022 12:00 PM EDT) [facility] Method Time Signature ABORH Recheck Order Placed IFRA[facility] KEANE K Order [facility] LABORATORY ABORH Type Complete [facility] LABORATORY Specimen Anatomical Collection Method Collection Time Receive d Time (Source) Location / / Volume Laterality Blood 05/15/2022 12:00 05/15/2022 PM EDT 12:17 PM EDT Resulting Agency Comment Spec In Lab Lc TRIPP BLOOD BANK ORDERABLES Performing Organization Address City/State/[place] [address] CK (05/15/2022 12:00 PM EDT) P athologist [facility] CK, Total 87 0 - 200 [facility] unit/L [facility] LABORATORY Specimen Anatomical Collection Method Collection Time Receive d Time (Source) Location / / Volume Laterality Blood Venous Draw / 05/15/2022 12:00 05/15/2022 Unknown PM EDT 12:19 PM EDT Resulting Agency Comment Spec In Lab Fito Summers MD CHEMISTRY ORDERABLES Performing Organization Address City/[facility]/[place] [address] Antibody screen (05/15/2022 12:00 PM EDT) [facility] Method Time Signature Ab Screen Negative [facility] LABORATORY Expires at 05/18/2022 [facility] [id number] on: [facility] LABORATORY Specimen Anatomical Collection Method Collection Time Receive d Time (Source) Location / / Volume Laterality Blood 05/15/2022 12:00 05/15/2022 PM EDT 12:17 PM EDT Resulting Agency Comment Spec In Lab Lc TRIPP BLOOD BANK ORDERABLES Performing Organization Address City/[facility]/ZIP Code Phon e Number [address] ABO/Rh Typing (05/15/2022 12:00 PM EDT) P athologist Signature ABORh Type O Pos [facility]OR[facility] Specimen Anatomical Collection Method Collection Time Receive d Time (Source) Location / / Volume Laterality Blood 05/15/2022 12:00 05/15/2022 PM EDT 12:17 PM EDT Resulting Agency Comment Spec In Lab Lc Tan Kimberly JOSEE BLOOD BANK ORDERABLES Performing Organization Address City/State/[place] [address] (ABNORMAL) Differential, Automated (05/15/2022 12:00 PM EDT) [facility] Method Time Signature Neutrophils % 79.4 % [facility] Neutr Abs (ANC) 7.49 (H) 1.70 - [facility] 6.10 [facility] x10(3)/[facility] LABORATORY Lymphocytes % 11.3 % [facility] Lymphocytes Abs 1.1 0.9 - 3.2 [facility] x10(3)/[facility] LABORATORY Monocytes % 7.8 % [facility] Monocyte Abs 0.7 0.3 - 0.9 [facility] x10(3)/[facility] LABORATORY Eosinophils % 0.6 % [facility] Eosinophils Abs 0.1 0.0 - 0.4 [facility] x10(3)/[facility] LABORATORY Basophils % 0.6 % [facility] Basophils Abs 0.1 0.0 - 0.1 [facility] x10(3)/[facility] LABORATORY Immature Gran % 0.30 % [facility] [...] 0.03 0.00 - 0.04 x10(3)/[facility] LABORATORY Specimen Anatomical Collection Method Collection Time Receive d Time (Source) Location / / Volume Laterality Blood 05/15/2022 12:00 05/15/2022 PM EDT 12:19 PM EDT Resulting Agency Comment Spec In Lab cL TRIPP HEMATOLOGY ORDERABLES Performing Organization Address City/State/[place] [address] (ABNORMAL) Hemogram (05/15/2022 12:00 PM EDT) Analysis Performed At Patho logist Time Signature WBC 9.4 4.0 - 9.5 [facility] LABORATORY RBC 4.48 (L) 4.58 - [facility] 5.54 [facility] x10(6)/[facility] LABORATORY Hemoglobin 14.5 13.7 - [facility] g/dL [facility] LABORATORY Hematocrit 42.4 40.5 - [facility] 48.5 % [facility] LABORATORY MCV 94.6 (H) 82.9 - [facility] 93.1 [facility] ER LABORATORY MCH 32.4 (H) 27.5 - [facility] 32.1 pg [facility] LABORATORY MCHC 34.2 32.0 - [facility] 35.7 g/dL [facility] LABORATORY Platelets 209 145 - 357 [facility] x10(3)/[facility] LABORATORY RDWSD 45.9 (H) 36.0 - [facility] 45.0 [facility] ER LABORATORY RDWCV 13.1 11.4 - [facility] 13.8 % [facility] LABORATORY MPV 10.5 7.6 - 12.9 [facility] ER LABORATORY nRBC % Auto 0.0 % [facility] nRBC Abs Auto 0.000 0.000 - [facility] 0.000 [facility] x10(3)/[facility] LABORATORY Specimen Anatomical Collection Method Collection Time Receive d Time (Source) Location / / Volume Laterality Blood 05/15/2022 12:00 05/15/2022 PM EDT 12:19 PM EDT Resulting Agency Comment Spec In Lab Lc TRIPP HEMATOLOGY ORDERABLES Performing Organization Address City/State/[place] [address] (ABNORMAL) Basic Metabolic Panel (non-fasting) (05/15/2022 12:00 PM EDT) P athologist Signature Glucose Lvl 203 (H) 65 - 199 [facility] mg/dL [facility] LABORATORY Comment: Diabetes: >=200 mg/dL plus [...] Organization Address City/State/[place] [address] documented in this encounter [...] RN) 0852 (Given - Provider: Barbie Joyce RN)175 (MAR Hold - Provider: Admin Adt - Reason: Transfer to a Procedural area)195 (MAR Unhold - Provider: Admin Adt) 0815 (Given - Provider: Etta contreras RN) 1,000 mcg, Oral, DAILY, First dose on 05/16/22 at 0900, Until Discontinued, Routine metoprolol tartrate (Lopressor) tablet 12.5 mg (CANCEL ED) 0838 (Given - Provider: Caroline Zamora RN)2008 (Given - Provider: Nuris Lester, DION) 0853 (Given - Provider: Barbie Joyce RN)1750 (JAN Hold - Provider: Admin Adt - Reason: Transfer to a Procedural area)1955 (JAN Unhold - Provider: Admin Adt)2004 (Given - Provider: Tere Blankenship RN) 0817 (Given - Provider: Etta Don, [...] capsule 0.4 mg 0838 (Given - Provi rbe: Caroline Zamora RN) 0853 (Given - Provider: [...] - Provider: Barbie Joyce , RN)1750 ([facility] Hold - Provider: Admin Adt - Reason: Transfer to a Procedural area)1955 ([facility] Unhold - Provider: Admin Adt) 0816 (Given - Provider: Etta contreras RN) 100 mg, Oral, DAILY, First dose on Brandi at 0900, Until Discontinued, Routine valsartan (Diovan) tablet 40 mg 837 (Given - Provider : Caroline Zamora, DION)2008 (Given - Provider: Nuris Lester RN) 0853 (Given - Provider: Barbie Joyce RN)1750 ([facility] Hold - Provider: Admin Adt - Reason: Transfer to a Procedural area)1955 ([facility] Unhold - Provider: Admin Adt)2005 [...] (New Bag - Provider: Barbie Joyce, DION)1750 ([facility] Hold - Provider: Admin Adt - Reason: Transfer to a Procedural area)1955 ([facility] Unhold - Provider: Admin Adt) [...] acetaminophen (Tylenol) tablet 650 mg 17 51 ([facility] Hold - Provider: Admin Adt - Reason: Transfer to a Procedural area)1955 ([facility] Unhold - Provider: Admin Adt) [...] (Dulcolax) suppository 10 mg 1 751 ([facility] Hold - Provider: Admin Adt - Reason: Transfer to a Procedural area)1955 ([facility] Unhold - Provider: Admin Adt) [...] Hold - Provider: Admin Adt - R lxeie: Transfer to a Procedural area)1955 (JAN Unhold - Provider: Admin Adt) 5 mg, Intravenous, EVERY 5 MIN PRN, Star ting on Fri05/19/22 at 0506, Until Fri05/21/22 at 1743, Elevated Heart Rate, up to 3 doses for HR >110 midazolam (pf) (Versed) (1 mg/mL) multi-dose injection ([facility]) 1713 (Given - Provider: Abundio [...]
Routine documented in this encounter Care Teams Adult Education Manager Relationship Specialty Start Date End Date Bobby Das MD PCP - General 10/02/[address] [place] [address] [place] [phone] documented as of this encounter
--- OUTSIDE RECORDS SUMMARY | 2022-08-05 09:01 | XMS_ITS | Encounter Summary ---
:1940 Author Organization [facility] [place] [address] Care Team Providers Name Role Phone Bobby Das MD Primary Care Provider Encounter Details Date Type Department Care Team Description 05/28/2022 Telephone Vascular Surgery at [facility] Dominique Bolivar, [place] [address] Social History Tobacco Use Types Packs/Day [...] RN - 05/28/2022 1:20 PM EDT This tech writer returned phone call due to 's [...] cardiac history and symptoms of lightheadedness, this tech writer recommended the patient be evaluated. Discussed going to local ED ([facility]) where staff could also phone vascular and/or cardiac at D- for planning. The patient agreed to do this after he has lunch. documented in this encounter Plan of Treatment Upcoming Encounters Date Type Specialty Care Team Description 08/08/2022 TH Visit (TeleHealth) Gastroenterology Dixon Collins MD [facility] GASTROENTEROLOGY DEPT [place], [place] [address] (Wo rk) 09/05/2022 Appointment Cardiology Trinity Reid MD [facility] CARDIOLOGY [place], [place] [address] (Wo rk) 09/05/2022 Office Visit Cardiology Trinity Reid MD [facility] DR WARNER [place], [place] [address] (Wo rk) 10/02/2022 Clinical Support Dermatology Thai Lynn MD [facility] DR JENNY BILLY-DERMAT [place], [place] [address] (Wo rk) 10/02/2022 Procedure visit Dermatology Jace Lynn MD [facility] DR JENNY BILLY-DERMAT [place], [place] [address] (Wo rk) documented as of this encounter Visit Diagnoses Not on filedocumented in this encounter Care Teams Tech Writer Relationship Specialty Start Date End Date Lippmann, Bobby, MD PCP - General 10/02/[address] [place] [address] [place] [phone] documented as of this encounter
--- OUTSIDE RECORDS SUMMARY | 2022-08-05 09:01 | XMS_ITS | Encounter Summary ---
:1940 Author Organization [facility] [place] [address] Care Team Providers Name Role Phone Bobby Das MD Primary Care Provider Encounter Details Date Type Department Care Team Description 05/24/2022 Telephone Cardiology at [facility] [place] [address] Social History Tobacco Use Types Packs/Day Years Used Date Current Some Day Smoker Cigarettes 0.5 50 Smokeless Tobacco: Never Used Alcohol Use Standard Drinks/Week Comments Yes 42 (1 standard drink = 0.6 oz pure alcoh ol) Sex Assigned at Date Recorded Not on file documented as of this encounter Miscellaneous Notes Telephone Encounter - Kourtney Jimenez, RN - 05/24/2022 12:37 PM EDT Telephone [...] Gastroenterology Dixon Collins MD [facility] DR GASTROENTEROLOGY DEPT [place], [place] [address] (Wo rk) 09/05/2022 Appointment Cardiology Trinity Reid MD [facility] DR [place]ER [place], [place] [address] (Wo rk) 09/05/2022 Office Visit Cardiology Trinity Reid MD [facility] DR WARNER [place], [place] [address] (Wo rk) 10/02/2022 Clinical Support Dermatology Thai Lynn MD [facility] DR JENNY BILLY-DERMAT [place], [place] [address] (Wo rk) 10/02/2022 Procedure visit Dermatology Jace Lynn MD [facility] DR JENNY BILLY-DERMAT [place], [place] [address] (Wo rk) documented as of this encounter Visit Diagnoses Not on filedocumented in this encounter Care Teams Serology Teacher Relationship Specialty Start Date End Date Bobby Das MD PCP - General 10/02/[address] [place] [address] [place] [phone] documented as of this encounter
--- OUTSIDE RECORDS SUMMARY | 2022-08-05 09:02 | XMS_ITS | Encounter Summary ---
:1940 [place] [address] Care Team Providers Name Role Phone Bobby Das MD Primary Care Provider Encounter Details Date Type Department Care Team Description 05/15/2022 Ancillary Procedure Radiology Library at [facility], Lavell Butt, [facility] [place] [address] VASCULAR SURGERY [phone] [place] [phone] (Wo rk) Social History Tobacco Use Types [...] TH Visit (TeleHealth) Gastroenterology Dixon Collins MD [facility] GASTROENTEROLOGY DEPT [place], [place] [address] (Wo rk) 09/05/2022 Appointment Cardiology Trinity Reid MD [facility] [place]ARDIOLOGY [place], [place] [address] (Wo rk) 09/05/2022 Office Visit Cardiology Trinity Reid MD [facility] [place]OLOGY [place] [address] (Wo rk) 10/02/2022 Clinical Support Dermatology Thai Lynn MD [facility] DR JENNY BILLY-DERMAT [place], [place] [address] (Wo rk) 10/02/2022 Procedure visit Dermatology Jace Lynn MD [facility] DR JENNY BILLY-DERMAT [place], [place] [address] (Wo rk) documented as of [...] Time Received Time / Laterality Volume Narrative [facility] - 05/15/2022 9:32 AM EDT This exam is auto-finalizing. It's purpo se is for storage only. Matt Branham MD IMG FILM LIBRARY ORDERABLES Performing Organization Address City/State/ZIP Code Phon e Number [place], [place] documented in this encounter Visit Diagnoses Not on filedocumented in this encounter Care Teams Barrel Lathe Operator Inside Relationship Specialty Start Date End Date Bobby Das MD PCP - General 10/02/[address] [place] [address] [place] [phone] documented as of this encounter
--- OUTSIDE RECORDS SUMMARY | 2022-08-05 09:02 | XMS_ITS | Encounter Summary ---
:1940 [place] [address] Care Team Providers Name Role Phone Bobby Das MD Primary Care Provider Encounter Details Date Type Department Care Team Description 05/15/2022 Ancillary Procedure Radiology Library at [facility], Lavell Butt, [facility] [place] [address] VASCULAR SURGERY [phone] [place] [phone] (Wo rk) Social History Tobacco Use Types [...] MD [facility] GASTROENTEROLOGY DEPT [place], [place] [address] (Wo rk) 09/05/2022 Appointment Cardiology Trinity Reid MD [facility] CARDIOLOGY [place], [place] [address] (Wo rk) 09/05/2022 Office Visit Cardiology Trinity Reid MD [facility] [place]ARDIOLOGY [place], [place] [address] (Wo rk) 10/02/2022 Clinical Support Dermatology Thai Lynn MD [facility] DR JENNY BILLY-DERMAT [place], [place] [address] (Wo rk) 10/02/2022 Procedure visit Dermatology Jace Lynn MD [facility] DR JENNY BILLY-DERMAT [place], [place] [address] (Wo rk) documented as of [...] Organization Address City/State/ZIP Code Phon e Number [place], [place] documented in this encounter Visit Diagnoses Not on filedocumented in this encounter Care Teams Associate Of Science In Nursing Relationship Specialty Start Date End Date Bobby Das MD PCP - General 10/02/[address] [place] [address] [place] [phone] documented as of this encounter
--- OUTSIDE RECORDS SUMMARY | 2022-08-05 09:02 | XMS_ITS | Encounter Summary ---
:1940 [place] [address] Care Team Providers Name Role Phone Bobby Das MD Primary Care Provider Reason for Visit Auth/Cert Specialty Diagnoses / Procedures Referred By Contact Refer red To Contact Diagnoses Limb ischemia LLE thrombus Fito Summers MD [facility] [place] [address] Referral ID Status Reason Start Date Expiration Date Visits Requ ested Visits Authorized [id number] 1 1 Encounter Details Date Type Department Care Team Description 05/15/2022 Anesthesia Event Main Operating Room Cari Briggs MD [facility] [place] [address] [facility] Duong Aguillon CRNA [facility] [place] [address] [place] [address] Anesthesia Record Procedure Summary Procedure Name [...] 07/08/22 1715 by laparoscopic puncture; Fay Martínez Mull er Diejoann Reynolds biopsy site; 07/08/22 ([facility] RN cleanup utility RA#[id number]); 1715 (LDA cleanup utility RA#[id number]) Incision 07/20/19; 1034; back; 07/20/19 1034 by 07/08/22 1715 by laparoscopic puncture; Fay Martínez Mull er, Dierdre Gail vertbroplasty site; RN 07/08/22 (LDA cleanup utility RA#[id number]); 1715 (LDA cleanup utility RA#[id number]) Incision 10/25/20; 0912; thoracic 10/25/20 0912 by 1715 by spine; non-laparascopic Keisha Vargas RN [place] er, Bro L puncture; vertebroplasty site; 07/08/22 (LDA cleanup utility RA#[id number]); 1715 (LDA cleanup utility RA#[id number]) PIV 05/15/22; 1204; median 05/15/22 1204 by 05/16/22 1117 by cubital vein (antecubital Marcia Dimas RN Amb ros, Andrea L, DION fossa), left; ddsi-asv-hbncfh catheter system; 18 gauge; OSH; site care per policy/procedure, site symptomatic, removed per policy/procedure, catheter/device intact; 05/16/22; 1117 PIV 05/15/22; 1204; median 05/15/22 1204 by 05/16/22 0738 by cubital vein (antecubital Marcia Dimas, Sary Morgan, fossa), right; RN ajjb-buo-yoapns catheter system; 18 gauge; OSH; 05/16/22; 0738 ETT 05/15/22 1340 by 05/15/22 1648 b y Torres Aguilar, Arron Graham, ANNY Urethral Catheter 05/15/22; 1340; Surgery 05/15/22 1340 by 05/16 1010 by longer than 2 hours; Jaylene Herring, RN Zhang roldan, DION Gaona indwelling double lumen catheter; hydrophilic coated, latex; 14; inserted at this facility; 1; 5; 10; none; drainage bag to dependent drainage; Cooper inserted by Nadine Workman, medical student.; 05/16/22; 1010 Arterial Line 05/15/22; 1341; radial 05/15/22 1341 by 05/15/22 1700 by artery, left; 20 gauge; Torres Aguilar CRNA Hi ggins, Elizabeth Anatomical Landmarks; G, RN continuous blood pressure [...] Procedure Summary Date: 05/15/22 Room / Location: [facility] OR [address] [place] [address] MAIN OR Anesthesia Start: 1320 Anesthesia Stop: 1633 Procedure: EMBOLECTOMY OR THROMBECTOMY, FEMOROPOPLITEAL, AORTOILIAC ARTERY BY LEG INCISION (WRVU 19.48) (Left ) Diagnosis: (Acute Limb Ischemia) Surgeons: Fito Summers MD Responsible Provider: Cari Ventura MD Anesthesia Type: general ASA Status: 3 - Emergent All Anesthesia Providers: Anesthesiologist: Cari Ventura MD PRODUCE CLERK: Torres Aguilar CRNA Vitals Value Taken Time BP 108/69 05/15/22 1715 Temp 36.3 ??C (97.3 ??F) 05/15/22 1633 Pulse 110 05/15/22 1719 Resp 16 05/15/22 1719 SpO2 89 % 05/15/22 1719 Pain Level Vitals shown include unvalidated device data. Patient Location: PACU/[facility] Level of Consciousness: Awake and Alert [...] THROMBECTOMY, FEMOROPOPLITEAL, AORTOILIAC ARTERY BY LEG INCISION ([facility] Patient Active Problem List Diagnosis [...] IR Biopsy Spine 07/20/2019 Bobby Marshall MD [facility] INTERVENTIONL RAD ??? IR VERTEBROPLASTY LUMBAR MULTIPLE LEVELS 07/20/2019 IR Vertebroplasty Lumbar Multiple Levels 07/20/2019 Bobby Marshall MD [facility] INTERVENTIONL RAD ??? 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 Plan discussed with PRODUCE CLERK. Anesthesia Screening documented in this encounter Plan of Treatment Upcoming Encounters Date Type Specialty Care Team Description 08/08/2022 TH Visit (TeleHealth) Gastroenterology Dixon Collins MD [facility] GASTROENTEROLOGY DEPT [place], [place] [address] (Wo rk) 09/05/2022 Appointment Cardiology Trinity Reid MD [facility] CARDIOLOGY [place], [place] [address] (Wo rk) 09/05/2022 Office Visit Cardiology Trinity Reid MD [facility] DR WARNER [place], [place] [address] (Wo rk) 10/02/2022 Clinical Support Dermatology Thai Lynn MD [facility] DR JENNY BILLY-DERMAT [place], [place] [address] (Wo rk) 10/02/2022 Procedure visit Dermatology Jace Lynn MD [facility] DR JENNY BILLY-DERMAT [place], [place] [address] (Wo rk) documented as of [...] Routine documented in this encounter Care Teams Rehab Trainer Relationship Specialty Start Date End Date Bobby Das MD PCP - General 10/02/[address] [place] [address] [place] [phone] documented as of this encounter
--- OUTSIDE RECORDS SUMMARY | 2022-08-05 09:02 | XMS_ITS | Encounter Summary ---
:1940 Author Organization [facility] [place] [address] Care Team Providers Name Role Phone Bobby Das MD Primary Care Provider Reason for Referral Consultation (Routine) - Closed Specialty Diagnoses / Procedures Referred By Contact Refer red To Contact Neurology Diagnoses Low back pain, non-specific Status post vertebroplasty Transient left leg weakness EMG Arpita Whitney APRN [facility] Neurology [address] [place] [address] [place] [address] Fax: Referral ID Status Reason Start Date Expiration Date Visits V isits Requested Authorized [id number] Closed Consult, 04/17/2021 04/17/2022 1 1 Test & Treat hysical Therapy (Routine) - Specialty Diagnoses / Procedures Referred By Contact Refer red To Contact Diagnoses Low back pain, non-specific Status post vertebroplasty [place] [address] Referral ID Status Reason Start Date Expiration Date Visits V isits Requested Authorized [id number] Evaluate and 04/17/2021 10/14/2021 12 12 Treat Reason for Visit Reason Comments Back Pain new patient visit Consultation (Routine) - Closed Specialty Diagnoses / Procedures Referred By Contact Refer red To Contact [facility] Diagnoses Low back pain Pain - Low back pain/ MRI 02/20/21 & XR 01/31/21 @ [facility] Bobby Das MD [facility] Ctr Pain And [address] [place], [place] [address] [address] [place] [address] Phone: Fax: Referral ID Status Reason Start Date Expiration Date Visits Requ ested Visits Authorized [id number] Closed 03/07/2021 03/07/2022 1 1 Encounter Details Date Type Department Care Team Description 04/17/2021 Office Visit [facility] Arpita Whitney Lo w back pain, non-specific; at [facility] EXHIBITS CURATOR Status post vertebroplasty; [facility] Tra nsient left leg weakness Drive Dr [address], [place], [place] [phone] Social History Tobacco [...] from the original note were not included. [facility] CONS[facility]ATION Date of Consultation: April 17, 2021 Referring Provider: Bobby Das Reason for request of consultation: Low back pain Chief Complaint: Left sided back pain History of Present Illness: Mr. Zamora is a 80 y.o. year-old male who presents to the pain clinic for low back pain. S/p L1 vertebroplasty 2019, s/p T9 vertebroplasty in 2020. Had improvement after these procedures but new pain in left back 2-3 months ago for which he is here for today. Had lumbar imaging and [facility] as ordered by PCP with no [...] standing limited due to back pain [facility] Prescription Monitoring Program was checked. The number of prescriptions reported was 0. Current Medications: Outpatient Medications Marked as Taking for the 04/17/21 encounter (Office Visit) with Arpita Whitney APRN Medication Sig Dispense Refill ??? fluticasone propionate (FLONASE) 50 mcg/actuation Peculiar, Suspension as needed. ??? fluorouraciL (EFUDEX) 5 [...] Matt Chisholm MD [facility] INTERVENTIONL RAD Review of Systems: ROS: [...] y.o. year-old male who presents to the [facility], previously [...] Mr. Koko Zamora's care. Arpita Whitney, MSN, TOW MATE- C, EXHIBITS CURATOR Nurse Practitioner [facility] [address] [phone] / [facility] documented in this encounter Plan of Treatment Upcoming Encounters Date Type Specialty Care Team Description 08/08/2022 TH Visit (TeleHealth) Gastroenterology Dixon Collins MD [facility] GASTROENTEROLOGY DEPT [place], [place] [address] (Wo rk) 09/05/2022 Appointment Cardiology Trinity Reid MD [facility] CARDIOLOGY [place], [place] [address] (Wo rk) 09/05/2022 Office Visit Cardiology Trinity Reid MD [facility] CARDIOLOGY [place], [place] [address] (Wo rk) 10/02/2022 Clinical Support Dermatology Thai Lynn MD [facility] DR JENNY BILLY-DERMAT [place], [place] [address] (Wo rk) 10/02/2022 Procedure visit Dermatology Jace Lynn MD [facility] DR JENNY BILLY-DERMAT [place], [place] [address] (Wo rk) Scheduled Referrals Name [...] limbs documented in this encounter Care Teams Pump Attendant Relationship Specialty Start Date End Date Bobby Das MD PCP - General 10/02/[address] [place] [address] [place] [address] documented as of this encounter
--- OUTSIDE RECORDS SUMMARY | 2022-08-05 09:02 | XMS_ITS | Encounter Summary ---
:1940 [place] [address] Care Team Providers Name Role Phone Bobby Das MD Primary Care Provider Encounter Details Date Type Department Care Team Description 10/13/2020 Notes Only Radiology at [facility] Alphonso Esquivel [facility] [place] [address] DIAGNOSTIC RADIOLOGY [phone] [place] [id number] (Wo rk) Social History Tobacco Use Types [...] TH Visit (TeleHealth) Gastroenterology Dixon Collins MD [facility] GASTROENTEROLOGY DEPT [place], [place] [address] (Wo rk) 09/05/2022 Appointment Cardiology Trinity Reid MD [facility] CARDIOLOGY [place], [place] [address] (Wo rk) 09/05/2022 Office Visit Cardiology Trinity Reid MD [facility] CARDIOLOGY [place], [place] [address] (Wo rk) 10/02/2022 Clinical Support Dermatology Thai Lynn MD [facility] DR JENNY BILLY-DERMAT [place], [place] [address] (Wo rk) 10/02/2022 Procedure visit Dermatology Jace Lynn MD [facility] DR JENNY BILLY-DERMAT [place], [place] [address] (Wo rk) documented as of this encounter Visit Diagnoses Not on filedocumented in this encounter Care Teams Program Assistant Relationship Specialty Start Date End Date Bobby Das MD PCP - General 10/02/[address] [place] [address] [place] [address] documented as of this encounter
--- OUTSIDE RECORDS SUMMARY | 2022-08-05 09:02 | XMS_ITS | Encounter Summary ---
:1940 Author Organization [facility] [place] [address] Care Team Providers Name Role Phone Bobby Das MD Primary Care Provider Encounter Details Date Type Department Care Team Description 08/06/2020 Ancillary Procedure Radiology at [facility] Amy Grimaldo [address] [place] [address] 10 LITTLE JAY [phone] NEUROSURGERY-UVN Jovanny [place], [place] [address] Social History Tobacco Use Types [...] TH Visit (TeleHealth) Gastroenterology Dixon Collins MD [facility] GASTROENTEROLOGY DEPT [place], [place] [address] (Wo rk) 09/05/2022 Appointment Cardiology Trinity Reid MD [facility] CARDIOLOGY [place], [place] [address] (Wo rk) 09/05/2022 Office Visit Cardiology Trinity Reid MD [facility] CARDIOLOGY [place], [place] [address] (Wo rk) 10/02/2022 Clinical Support Dermatology Thai Lynn MD [facility] DR JENNY BILLY-DERMAT [place], [place] [address] (Wo rk) 10/02/2022 Procedure visit Dermatology Jace Lynn MD [facility] DR JENNY BILLY-DERMAT [place], [place] [address] (Wo rk) documented as of [...] Time / Laterality Volume Narrative INO - 09/13/2020 10:40 AM EST This exam is auto-finalizing. It's purpo se is for storage only. Amy Grimaldo MD IMG FILM LIBRARY ORDERABLES Performing Organization Address City/State/ZIP Code Phon e Number [place], [place] documented in this encounter Visit Diagnoses Not on filedocumented in this encounter Care Teams Sieve Maker Relationship Specialty Start Date End Date Bobby Das MD PCP - General 10/02/[address] [place] [address] [place] [phone] documented as of this encounter
--- OUTSIDE RECORDS SUMMARY | 2022-08-05 09:02 | XMS_ITS | Encounter Summary ---
:1940 Author Organization [facility] [place] [address] Care Team Providers Name Role Phone Bobby Das MD Primary Care Provider Reason for Visit - Closed Specialty Diagnoses / Procedures Referred By Contact Refer red To Contact Procedures Bobby Das MD Film Library- Storage Only MR [address] [place] [phone] Referral ID Status Reason Start Date Expiration Date Visits Requ ested Visits Authorized [id number] Closed 02/23/2021 02/23/2022 1 1 Encounter Details Date Type Department Care Team Description 02/20/2021 Ancillary Procedure Radiology Library at Bobby Almaguer MD [address] [phone] (Rebekah rojas) Social History Tobacco Use Types [...] TH Visit (TeleHealth) Gastroenterology Dixon Collins MD [facility] DR GASTROENTEROLOGY DEPT [place], [place] [address] (Rebekah rk) 09/05/2022 Appointment Cardiology Trinity Reid MD [facility] DR WARNER [place], [place] [address] (Wo rk) 09/05/2022 Office Visit Cardiology Trinity Reid MD [facility] DR WARNER [place], [place] [address] (Wo rk) 10/02/2022 Clinical Support Dermatology Thai Lynn MD [facility] DR JENNY BILLY-DERMAT [place], [place] [address] (Wo rk) 10/02/2022 Procedure visit Dermatology Jace Lynn MD [facility] DR JENNY BILLY-DERMAT [place], [place] [address] (Wo rk) documented as of [...] Laterality Volume Narrative JOSE ALEJANDRO RAD - 02/23/2021 12:54 PM EDT This exam is auto-finalizing. It's purpo se is for storage only. Bobby Das MD IMG FILM LIBRARY ORDERABLES Performing Organization Address City/State/ZIP Code Phon e Number RAD [place], [place] documented in this encounter Visit Diagnoses Not on filedocumented in this encounter Care Teams Printed Circuit Board Preassembler Relationship Specialty Start Date End Date Bobby Das MD PCP - General 10/02/[address] [place] [address] Dr [place], [place] [phone] documented as of this encounter
--- OUTSIDE RECORDS SUMMARY | 2022-08-05 09:02 | XMS_ITS | Encounter Summary ---
:1940 Author Organization [facility] [place] [address] Care Team Providers Name Role Phone Bobby Das MD Primary Care Provider Reason for Referral Diagnostic Test (Routine) - Closed Specialty Diagnoses / Procedures Referred By Contact Refer red To Contact Radiology Diagnoses Compression fracture of T9 vertebra, initial encounter Alphonso Esquivel DO [facility] Interventionl Rad Procedures IR Vertebroplasty [facility] [place] [address] [place] [address] Referral ID Status Reason Start Date Expiration Date Visits V isits Requested Authorized [id number] Closed Specialty 10/13/2020 04/13/2022 1 1 Service Requested Reason for Visit Diagnostic Test (Routine) - Closed Specialty Diagnoses / Procedures Referred By Contact Refer red To Contact Radiology Diagnoses Compression fracture of T9 vertebra, initial encounter Alphonso Esquivel DO [facility] Interventionl Rad Procedures IR Vertebroplasty [facility] [place] [address] [place] [address] Referral ID Status Reason Start Date Expiration Date Visits V isits Requested Authorized [id number] Closed Specialty 10/13/2020 04/13/2022 1 1 Service Requested Encounter Details Date Type Department Care Team Description 10/25/2020 Hospital Encounter Radiology at [facility] Alphonso Esquivel, Compression fracture [facility] DO of T9 vertebra, Drive [facility] initial encounter [place], [place] CENTER [address] DIAGNOSTIC [phone] [place] [address] Social History Tobacco Use Types Packs/Day Years [...] Vargas RN - 10/25/2020 9:13 AM EST [facility] Discharge Instructions for Vertebroplasty Your [...] is during regular office hours, please call [phone]. If it is after regular office hours, oron weekends or holidays, please call [phone] and ask to speak to the Block Sorter on callfor Interventional Radiology. XXX You have [...] : 1940 AGE: 80 y.o. Address: [address] [place] [address] (home) Mobile: No relevant phone numbers on file. Referring Provider: Alphonso Esquivel REASON FOR VISIT: Order Questions Answers Where will study be performed? [facility] Radiology [120] Is the patient on anticoagulant [...] TH Visit (TeleHealth) Gastroenterology Dixon Collins MD [facility] GASTROENTEROLOGY DEPT [place], [place] [address] (Wo rk) 09/05/2022 Appointment Cardiology Trinity Reid MD [facility] CARDIOLOGY [place], [place] [address] (Wo rk) 09/05/2022 Office Visit Cardiology Trinity Reid MD [facility] CARDIOLOGY [place], [place] [address] (Wo rk) 10/02/2022 Clinical Support Dermatology Thai Lynn MD [facility] DR JENNY BILLY-DERMAT [place], [place] [address] (Wo rk) 10/02/2022 Procedure visit Dermatology Jace Lynn MD [facility] DR JENNY BILLY-DERMAT [place], [place] [address] (Wo rk) documented as of this encounter [...] made and a 13g a introducer needle (OMG) was advanced through the right pedicle and t o the ??T9 vertebral body during an intermittent fluoroscopic guidance. The OMG biopsy cannula was advanced through the introducer [...] was made and a 13ga introducer needle ([facility]) was advanced through the left pedicle and [...] the interservice administration of fentanyl and Versed [facility] continuous monitoring of blood pressure, oxygenation [...] made and a 13g a introducer needle (OMG) was advanced through the right pedicle and t o the T9 vertebral body during an intermittent fluoroscopic guidance. The OMG biopsy cannula was advanced through the introducer [...] was made and a 13ga introducer needle ([facility]) was advanced through the left pedicle and [...] At [facility] Method Time Signature Surgical [id number] ? Location: 3ZV [facility] Pathology [place] Report The signing pathologist has (i) examined [...] Soft Tissue Pathologist Performed at: ??-[facility] Dept. of Pathology, [place], [place] DISCUSSION I see no neoplastic process [...] Organization Address City/State/ZIP [place] [address] [facility] [address] Specimen to Pathology (10/25/2020 8:26 AM EST) Specimen Anatomical Collection Method Collection Time Receive d Time (Source) Location / / Volume Laterality AP Specimen 10/25/2020 8:26 AM 0 8:26 EST AM EST Narrative [facility] - 10/25/2020 8:26 AM EST Specimen requisition ordered. ??Separate Pathology report to follow Alphonso Elle Sierra DO PATHOLOGY/CYTOLOGY ORDERABLE S Performing Organization Address City/State/ZIP [place] [address] documented in this encounter [...] Procedure) documented in this encounter Care Teams Transportation Planning Technician Relationship Specialty Start Date End Date Bobby Das MD PCP - General 10/02/[address] [place] [address] [place] [phone] documented as of this encounter
--- OUTSIDE RECORDS SUMMARY | 2022-08-05 09:02 | XMS_ITS | Encounter Summary ---
:1940 Author Organization [facility] [place] [address] Care Team Providers Name Role Phone Bobby Das MD Primary Care Provider Encounter Details Date Type Department Care Team Description 08/06/2020 Ancillary Procedure Radiology at [facility] Amy Grimaldo [address] [place] [address] 10 LITTLE JAY [phone] NEUROSURGERY-UVN Jovanny [place], [place] [address] Social History Tobacco Use Types [...] TH Visit (TeleHealth) Gastroenterology Dixon Collins MD [facility] GASTROENTEROLOGY DEPT [place], [place] [address] (Wo rk) 09/05/2022 Appointment Cardiology Trinity Reid MD [facility] CARDIOLOGY [place], [place] [address] (Wo rk) 09/05/2022 Office Visit Cardiology Trinity Reid MD [facility] CARDIOLOGY [place], [place] [address] (Wo rk) 10/02/2022 Clinical Support Dermatology Thai Lynn MD [facility] DR JENNY BILLY-DERMAT [place], [place] [address] (Wo rk) 10/02/2022 Procedure visit Dermatology Jace Lynn MD [facility] DR JENNY BILLY-DERMAT [place], [place] [address] (Wo rk) documented as of [...] Time / Laterality Volume Narrative INO - 09/14/2020 5:56 PM EST This exam is auto-finalizing. It's purpo se is for storage only. Amy Grimaldo MD IMG FILM LIBRARY ORDERABLES Performing Organization Address City/State/ZIP Code Phon e Number [place], [place] documented in this encounter Visit Diagnoses Not on filedocumented in this encounter Care Teams Department Store Salesperson Relationship Specialty Start Date End Date Bobby Das MD PCP - General 10/02/[address] [place] [address] [place] [address] documented as of this encounter
--- OUTSIDE RECORDS SUMMARY | 2022-08-05 09:02 | XMS_ITS | Encounter Summary ---
:1940 Author Organization [facility] [place] [address] Care Team Providers Name Role Phone Bobby Das MD Primary Care Provider Reason for Visit - Closed Specialty Diagnoses / Procedures Referred By Contact Refer red To Contact Procedures Bobby Das MD Film Library- Storage Only [address] [phone] Referral ID Status Reason Start Date Expiration Date Visits Requ ested Visits Authorized [id number] Closed 04/13/2021 04/13/2022 1 1 Encounter Details Date Type Department Care Team Description 01/31/2021 Ancillary Procedure Radiology Library at Bobby Almaguer MD [address] [phone] (Wo rk) Social History Tobacco Use Types [...] TH Visit (TeleHealth) Gastroenterology Dixon Collins MD [facility] DR GASTROENTEROLOGY DEPT [place], [place] [address] (Wo rk) 09/05/2022 Appointment Cardiology Trinity Reid MD [facility] [address] [place], [place] [address] (Wo rk) 09/05/2022 Office Visit Cardiology Trinity Reid MD [facility] [address] [place], [place] [address] (Wo rk) 10/02/2022 Clinical Support Dermatology Thai Lynn MD [facility] [address] [place], [place] [address] (Wo rk) 10/02/2022 Procedure visit Dermatology Jace Lynn MD [facility] [address] [place], [place] [address] (Wo rk) documented as of this encounter [...] Laterality Volume Narrative JOSE ALEJANDRO MCKINNON - 04/13/2021 11:47 AM EDT This exam is auto-finalizing. It's purpo se is for storage only. Bobby Das MD IMG FILM LIBRARY ORDERABLES Performing Organization Address City/State/ZIP Code Phon e Number RAD [place], [place] documented in this encounter Visit Diagnoses Not on filedocumented in this encounter Care Teams Residence Hall Director Relationship Specialty Start Date End Date Bobby Das MD PCP - General 10/02/[address] [place] [address] [place] [phone] documented as of this encounter
--- OUTSIDE RECORDS SUMMARY | 2022-08-05 09:02 | XMS_ITS | Encounter Summary ---
:1940 Author Organization [facility] [place] [address] Care Team Providers Name Role Phone Bobby Das MD Primary Care Provider Reason for Visit Reason Comments Left Leg Pain Auth/Cert Specialty Diagnoses / Procedures Referred By Contact Refer red To Contact Diagnoses Limb ischemia LLE thrombus Fito Summers MD [facility] [place] [address] Referral ID Status Reason Start Date Expiration Date Visits Requ ested Visits Authorized [id number] 1 1 Encounter Details Date Type Department Care Team Description 05/15/2022 Surgery Main Operating Room Savana Summers se, MD [facility] FEMOROPOPLITEAL, [facility] VASCULAR SURG JULIAN [place] [address] LEG INCISION ([place] [address] 19.48) [phone] Social History Tobacco Use Types Packs/Day Years [...] ??? Alcohol use History of Presentation: Koko aZmora is a 81M w new onset Afib who presents in transfer from [facility] with acute limb ischemia of [...] emergently went to the OR for L CANCER SPEC transverse arteriotomy and primary repair, thromboembolectomy of L SFA/PFA/CANCER SPEC, reperfusion venous drainage for 250 cc, and [...] with good PO intake, adequate output following coopre removal, and pain well controlled on PO [...] Discharge Condition: Good Discharge to: Home with [facility] Care [address] [address] Future Appointments and Orders Future Appointments and Orders Future Appointments Provider Department Dept Phone 05/23/2022 10:30 AM Loretta Cohen MD Dermatology at [facility] Arrive at: [facility] [place] [address] [place] [address] 06/07/2022 1:30 PM Gail Rae APRN Vascular Surgery at [facility] Arrive at: [facility] [phone] 06/13/2022 7:30 AM Edson [place] Vascular Lab at [facility] Arrive at: [facility] 06/13/2022 8:00 AM Fito Summers MD Vascular Surgery at [facility] Arrive at: [facility] 06/13/2022 10:00 AM Alan Reid MD Cardiology at [facility] Arrive at: [facility] [phone] Future Orders Complete By Expires Ziopatch 48 Hrs-15 Days [[id number] CPT(R)] 05/21/2022 11/20/2022 Process Instructions: Scheduling Instructions: Comments: Questions: Does the patient have a pacemaker? If yes provide HI/LO settings: Apply for 7 or 14 days?: 7 Where will study be performed?: [facility] JOSSELYN, legs, multiple levels [VAS8 Custom] 06/21/2022 (Approximate) 12/21/2022 Process Instructions: There is no in-house vascular dental laboratory supervisor available on weeknights (5pm-8am), weekends, or holidays. IF THIS IS A REQUEST FOR AN EMERGENT STUDY DURING THOSE HOURS, please have the senior provider responsible for the patient page the Vascular Surgery Fellow/Senior Resident pony rougher to discuss options. Scheduling Instructions: Questions: Indication [...] Koko Zamora for admission to Home Health. [address] [place] [phone] (home) Date of : 1940 Inpatient DOCUMENTATION FOR VNA SERVICES (INCLUDING THOSE PATIENTS WITH MEDICARE COVERAGE REQUIRING HOME VNA SERVICES AND/OR HOSPICE SERVICES) PATIENT'S LOCATION: Koko Zamora [facility] [phone] (home) Cell: No relevant phone numbers on file. Store Detective's Name: Koko In discussion with the attending physician, it is certified that this patient is under their care and that they, or a Nurse Practitioner,Clinical Nurse specialist or Physician Transplant Immunologist who is working directly with them, had [...] for managing ADL's. HOME HEALTH CARE AGENCY: [facility]. [address] [place] [id number] Start of care: Within 24 to 48 [...] obtained from this patient'sPCP: Bobby Das MD [address] [place] [address] / [place] [address] All A agencies which cover the [...] For any problems or questions please call [phone] For issues on weeknights after 5pm and weekends please call [phone] and ask for the Vascular Fellow pony rougher. JOSEE Santiago Vascular Surgery 05/21/2022 documented in [...] For any problems or questions please call [phone] For issues on weeknights after 5pm and weekends please call [phone] and ask for the Vascular Fellow pony rougher. documented in this encounter Medications at Time [...] 04/12/20 21 (FLONASE) 50 mcg/actuation Nare route Fulton, Suspension daily as needed. fluorouraciL (EFUDEX) 5 [...] Afib who presents in transfer from [facility] with acute limb ischemia of [...] status, full code. JOSEE Santiago 05/21/2022 Pager: [phone] Brannon Isaacs, PT - 05/21/2022 10:35 AM [...] plan as stated. Time IN / OUT: 3110-8950 Total Minutes, Physical Therapy: 25 Billing Code: 2 TA Brannon Isaacs DPT Pager: [phone] Physical Therapy Inpatient Rehabilitation Department [place] Jean [...] and plan of care per Dr. Mcnamara (forestry and wildlife manager). Please refer to her note above [...] ED to Hosp-Admission (Current) from 05/15/[address] [place] [address] Office Visit from 04/17/2021 in Pain and [...] findings andplan of care per Dr. Mcnamara (forestry and wildlife manager). Please refer to her note above [...] Afib who presents in transfer from [facility] with acute limb ischemia of [...] management following Dottie Hill APRN 05/20/2022 Pager: [phone] Laney Atkins RN - 05/20/2022 1:14 AM EDT Pt Koko transferred to room from [facility]. A&Ox4, oriented to room and call boo. Dezimo and telemetry placed. In agreement with assessment [...] Afib who presents in transfer from [facility] with acute limb ischemia of [...] management following Dottie Hill APRN 05/19/2022 Pager: [phone] Emily Sauceda RN - 05/19/2022 6:28 AM EDT OUTCOME EVALUATION NOTE: OUTCOME SUMMARY: Patient AOx4, VSS on RA. Afib on tele. HR controlled w/ PRN metop, given x2. Denies CP, SOB, n/v. See flowsheets for NVC. Dressings to LLE CDI, prevena WV to groin intact. Voiding to urinal. LBM RECREATION PROFESSOR, patient stating he will maybe try the [...] [X] N/A T Nuris Lester RN - 05/18/2022 6:09 PM EDT OUTCOME EVALUATION NOTE: OUTCOME SUMMARY: A/O x4. Telemetry in place. A-fib rhythm noted. All other VSS on RA. Pain well controlled with scheduled and prn medications per JAN. Dressings to LLE C/D/I. Incisions to LLE WDL and JOURNEYMAN POWERHOUSE OPERATOR. Denies n/t toBLE. 2+ dorsal pulses noted. Heparin drip infusing at 1200 units/hr. UFH within therapeutic range, next labs due with morning labs. Voiding adequately without difficulty to bedside urinal. LBM RECREATION PROFESSOR. Up to chair this AM with nursing staff. Worked with PT, tolerated well. Diet changed to regular at 1800.Plan is for cardiac cath on Friday. PLAN MOVING FORWARD: Bleeding precautions Pain management neurovascular checks PT/OT labeling specialist INDIVIDUALIZED FALL PREVENTION INTERVENTIONS: Patient-specific fall risk [...] Afib who presents in transfer from [facility] with acute limb ischemia of [...] mL Intravenous BID ??? PHENobarbitaL 0.12 mg/kg/dose (Robinson) Oral BID ??? thiamine 100 mg Oral [...] management following Dottie Hill APRN 05/18/2022 Pager: [phone] Brannon Isaacs, PT - 05/18/2022 10:00 AM [...] IR Biopsy Spine 07/20/2019 Bobby Marshall MD [facility] INTERVENTIONL RAD ??? IR VERTEBROPLASTY LUMBAR MULTIPLE LEVELS 07/20/2019 IR Vertebroplasty Lumbar Multiple Levels 07/20/2019 Bobby Marshall MD [facility] INTERVENTIONL RAD ??? IR VERTEBROPLASTY THORACIC SINGLE LEVEL 10/25/2020 IR Vertebroplasty Thoracic Single Level 10/25/2020 Matt Chisholm MD [facility] INTERVENTIONL RAD ??? PRO EMBLC/THRMBC FEMORAL POPLITEAL AORTO-ILIAC ARTERY Left 05/15/2022 EMBOLECTOMY OR THROMBECTOMY, FEMOROPOPLITEAL, AORTOILIAC ARTERY BY LEG INCISION (WRVU 19.48) performed by Fito Summers MD at [facility] MAIN OR Social History: Pt lives [...] in this evaluation. Time IN / OUT: 2111-8281 Total Minutes, Physical Therapy: 30 Billing Code: Basilio Isaacs, PT Pager: [phone] Physical Therapy Inpatient Rehabilitation Department Emily Sauceda RN - 05/18/2022 4:34 AM EDT OUTCOME EVALUATION NOTE: OUTCOME SUMMARY: Patient AOx4, VSS on 2LNC. Afib on tele. HR above 120, MD aware, PRN IV metop given x1, HR returned to 90's-low 100's. Denies CP, SOB, n/v. See flowsheets for NVC. Dressings to LLE CDI, prevena WV to groin intact. Voiding to urinal. LBM RECREATION PROFESSOR. Heparin gtt therapeutic. Pain controlled. Patient sleeping [...] adequately without difficulty to bedside urinal. LBM RECREATION PROFESSOR. Patient not OOB this shift. Currently NPO awaitingprocedure in laboratory technician. PLAN MOVING FORWARD: Bleeding precautions Pain management neurovascular checks PT/OT NPO for laboratory technician INDIVIDUALIZED FALL PREVENTION INTERVENTIONS: Patient-specific [...] 05/17/2022 2:40 PM EDT Physical Therapy 05/17/22 0180 Evaluation & Treatment Document Type contact Total Minutes, Physical Therapy 10 Comment, Session Not Performed Orders recieved on Koko Zamora who is a 81 y.o male with history of atrial fibrillation not on anticoagulation, and GI bleeding who presented to the Emergency Department as a transfer from [facility] with left lower extremity limb ischemia. He went to [facility] and was startedon heparin and transferred to [facility] for evaluation by vascular surgery with [...] will will be going to the laboratory technician for evaluation. Will defer PT eval at present but will see as ordered post cardiac catheritizaton. Social Hx:Pt lives with his Ursula in [place], [place] in a 2 level home in [...] WBAT LLE LISBET HERMAN PT Pager # [phone] In-Pt Rehab Medicine Dottie Hill APRN - 05/17/2022 7:42 AM EDT Vascular Surgery Progress Note Koko Zamora is a 81 y.o. male with w new onset Afib who presents in transfer from [facility] with acute limb ischemia of [...] mL Intravenous BID ??? PHENobarbitaL 0.24 mg/kg/dose (Robinson) Oral BID Followed by ??? [START ON 05/18/2022] PHENobarbitaL 0.12 mg/kg/dose (Robinson) Oral BID ??? thiamine 100 mg Oral [...] management following Dottie Hill APRN 05/17/2022 Pager: [phone] Sary Dos Santos, RN - 05/17/2022 12:16 [...] Afib who presents in transfer from [facility] with acute limb ischemia of the LLE. ?? The patient had sudden pain starting at 630 05/15/22, he presented [facility] where he was placed on heparin. [...] mL Intravenous BID ??? PHENobarbitaL 0.48 mg/kg/dose (Robinson) Oral BID Followed by ??? [START ON 05/17/2022] PHENobarbitaL 0.24 mg/kg/dose (Robinson) Oral BID Followed by ??? [START ON 05/18/2022] PHENobarbitaL 0.12 mg/kg/dose (Robinson) Oral BID ??? thiamine 100 mg Oral [...] management following Edward Rodríguez MD 05/16/2022 Pager: [phone] Sary Dos Santos RN - 05/16/2022 12:52 [...] and ambulation]: Bedrest Surveillance [continuous indirect monitoring]: Dezimo, Purposeful Rounding, Nurse Knowledge Exchangeat Bedside, Bed [...] met 2129 Hand off to DION Ramirez erie documented in this encounter H&P Notes Kerry [...] plan: moderate/conscious sedation - FULL CODE Kerry Mcnamaar MD 05/20/2022 8:30 AM Tim Chicas MD - 05/15/2022 11:33 AM EDT Vascular Surgery History and Physical HPI: Koko Zamora is a 81M w new onset Afib who presents in transfer from [facility] with acute limb ischemia of the LLE. The patient had sudden pain starting at 630 this morning he presented [facility] where he was placed on heparin. [...] IR Biopsy Spine 07/20/2019 Bobby Marshall MD [facility] INTERVENTIONL RAD ??? IR VERTEBROPLASTY LUMBAR MULTIPLE LEVELS 07/20/2019 IR Vertebroplasty Lumbar Multiple Levels 07/20/2019 Bobby Marshall MD [facility] INTERVENTIONL RAD ??? IR VERTEBROPLASTY THORACIC SINGLE LEVEL 10/25/2020 IR Vertebroplasty Thoracic Single Level 10/25/2020 Matt Chisholm MD [facility] INTERVENTIONL RAD Social Hx: Social History [...] Refill ??? fluticasone propionate (FLONASE) 50 mcg/actuation Fulton, Suspension as needed. ??? fluorouraciL (EFUDEX) 5 [...] as a B case. Marked and consented. iTm Chicas MD 05/15/2022 Pager: [phone] documented in this encounter ED Notes Lc [...] was started on heparin and transferred to [facility] for evaluation by vascular surgery. Review [...] src: Oral SpO2: 94 % O2 Device: IL O2 Flow Rate (L/min): 2 L/min Physical [...] of the left lower extremity. Vascular surgery [facility] was contacted and he was transferred [...] in an outpatient cardiac rehabilitation program at [facility] was discussed. Patient agrees to a referral to this program. Timing will depend on his recovery from Vascular surgery. He is going home w/VNA PT. I gave him the brochure for the program at [facility] for future reference. Care Management [...] information for follow-up Home Health & H[facility], [place] [address] [place] [address] Transportation: family or friend will provide Functional [...] Type: *No Product type* / Secondary Insurance: [facility] Prescription Coverage: Yes This plan was formulated with input from patient and team. All are in agreement with plan. IP RS has communicated with [place] - for initial BRENDAN. Shawn López RN (Jonas) RN/CM - Cellphone: [phone] Pager: [phone] Covering Service RN/CM Plan of Care - [...] transferred in hospital bed accompanied by Manager Economic RN, remains on telemetry monitoring. Heparin gtt turned off at time of transfer. 1825 - pt to transfer to [facility]U 429 following cardiac cath, report given to DION Waldron. Family directedto ICCU locations, belongings gathered including glasses. PLAN MOVING FORWARD: Neurovasc/pulse checks Q4H Heparin gtt - next UFH / with am labs Bleeding precautions Remote telemetry, [...] Type: *No Product type* / Secondary Insurance: [facility] Last Physical Therapy Recommendation: home with [...] Office of Care Management letter from the Production Supervisor Off Shift pertaining to rehab referrals. ?? provide a letter describing our affiliations within the [facility] and educate about their right to choose where referrals are sent. ?? provide a list of Home Health Agencies / Durable Medical Equipment vendors which serve their preferred geographic area. ?? provided patient with [facility] Star Quality Rating handout. They have requested referrals to: [facility] [address] [place] [address] Note routed to a Door Repairer Bus who will communicate referrals to facilities and provide any required information. Transportation: family or friend will provide Barriers to discharge: None Plan going forward: Patient is going for a cardiac cath today and plan will come from there. Patientwas recently seen by PT and they recommend VNA at time of discharge. [employer] was routed and pendedat this time. Care Management will continue to follow and assist with discharge planning and coordination of care as indicated. Anticipated Date of Discharge: 05/21/2022 Nataly RICHMOND RN Phone: [phone] Pager: [phone] Plan of Care - Laney Atkins RN [...] included. [facility] [place] [address] [address] INPATIENT CARDIOLOGY CONSULT NOTE Date of Consultation: [...] IR Biopsy Spine 07/20/2019 Bobby Marshall MD [facility] INTERVENTIONL RAD IR VERTEBROPLASTY LUMBAR MULTIPLE LEVELS 07/20/2019 IR Vertebroplasty Lumbar Multiple Levels 07/20/2019 Bobby Marshall MD [facility] INTERVENTIONL RAD IR VERTEBROPLASTY THORACIC SINGLE LEVEL 10/25/2020 IR Vertebroplasty Thoracic Single Level 10/25/2020 Matt Chisholm MD [facility] INTERVENTIONL RAD PRO EMBLC/THRMBC FEMORAL POPLITEAL AORTO-ILIAC ARTERY Left 05/15/2022 EMBOLECTOMY OR THROMBECTOMY, FEMOROPOPLITEAL, AORTOILIAC ARTERY BY LEG INCISION (WRVU 19.48) performed by Fito Summers MD at [facility] MA[facility] OR Allergies Allergen Reactions Aspirin Other (See Comments) GI bleed Out-Patient Medications: Medications Prior to Admission Medication Sig Dispense Refill Last Dose fluorouraciL (EFUDEX) 5 % Cream daily. CRESTOR 40 mg Tablet Take 40 mg by mouth daily. fluticasone propionate (FLONASE) 50 mcg/actuation Fulton, Suspension as needed. ascorbic acid, vitamin C, [...] 5 mL Intravenous BID PHENobarbitaL 0.24 mg/kg/dose (Robinson) Oral BID Followed by [START ON 05/18/2022] PHENobarbitaL 0.12 mg/kg/dose (Robinson) Oral BID thiamine 100 mg Oral Daily folic acid 1,000 mcg Oral Daily multivitamin with minerals 1 tablet Oral Daily heparin (porcine) infusion 1,200 Units/hr (05/17/22 035) Family History: No family history on file. [...] continue to follow Anne-Marie Larson MD Pager [phone] Clinic: [phone] 05/17/22 6:22 PM Initial Assessments - [facility] must abide by [place] law. The hierarchy [...] (i) The agent with financial power of finance attorney or a conservator appointed in accordance [...] raised toilet seat Home Address confirmed as: [address] [place] [phone] Social & Family Supports: All names listed below confirmed with patient as Incorrect. Will notify toni to correct. Wifes address is same as and phone is [phone]. Extended Emergency Contact Information Primary Emergency Contact: Ursula Zamora Address: [address] [place] [address] [place] [phone] [facility] Relation: Spouse Current Care Provided [...] Type: *No Product type* / Secondary Insurance: [facility] Prescription Coverage: Yes Preferred Pharmacy: [id number] - [place], [place] - [address] [facility] [address] [facility] [address] [facility] [address] - [place], [place] - [address] [facility] [address] [facility] [address] [place] Status: Patient is a : unable to assess Primary Care Provider: Bboby Das MD [phone] Patient/Caregiver Goals of Treatment: to walk again Potential Needs for Transition of Care: none noted per 05/16 IDR Transportation: family will provide Transportation Anticipated: family or friend will provide Concerns to be Addressed: no discharge needs identified Assessment: Patient is admitted to vascular surg service for left lower extremity limb ischemia Plan: Per PT OT recommendations . Has used [employer] in the past. A member of the Care Management team will continue to monitor progress, follow for continuity of care and assist with transition of care planning. Ifrah Bell RN BSN [employer] Operator of Care Management Pager [phone] Brief Op Note - Erin Garza MD - 05/15/2022 5:04 PM EDT Brief Operative Note Patient Name: Koko Zamora : [id number] MR#: [id number] Case Date: 05/15/2022 Surgeon: Surgeon(s) and Role: [...] Operative Note Patient Name: Koko Zamora : [id number] MR#: [id number] Case Date: 05/15/2022 Surgeon: Surgeon(s) and Role: [...] (TeleHealth) Gastroenterology Dixon Collins MD [facility] DR GASTROENTEROLOGY DEPT [place], [place] [address] (Wo rk) 09/05/2022 Appointment Cardiology Trinity Reid MD [facility] CARDIOLOGY [place], [place] [address] (Wo rk) 09/05/2022 Office Visit Cardiology Trinity Reid MD [facility] CARDIOLOGY [place], [place] [address] (Wo rk) 10/02/2022 Clinical Support Dermatology Thai Lynn MD [facility] [address]ENNY [place], [place] [address] (Wo rk) 10/02/2022 Procedure visit Dermatology Jace Lynn MD [facility] [address], [place] [address] (Wo rk) Scheduled Referrals Name [...] Component Value Ref Test Analysis Performed At [facility] Range Method Time Signature VB Text Department: Vascular Surgery Lab VASCUBASE Report Patient: [id number] (KOKO ZAMORA) CPT: 91929 Referring Physician: FITO SUMMERS ?? Phone: Indications: s/p L CANCER SPEC endart. Diabetes mellitus: no Findings: Right ?Pressure [...] athologist Signature Heparin UFH 0.42 IU/mL [facility] LABORATORY Comment: Heparin (anti-Xa) levels should [...] Organization Address City/State/ZIP Code Phon e Number [place] [phone] Differential, Automated (05/21/2022 6:15 AM EDT) athologist Signature Neutrophils % 58.8 % [facility] LABORATORY Neutr Abs (ANC) 3.97 1.70 - [facility] 6.10 [facility] x10(3)/[facility] LABORATORY Lymphocytes % 25.2 % [facility] LABORATORY Lymphocytes Abs 1.7 0.9 - 3.2 [facility] x10(3)/[facility] LABORATORY Monocytes % 12.9 % [facility] LABORATORY Monocyte Abs 0.9 0.3 - 0.9 [facility] x10(3)/[facility] LABORATORY Eosinophils % 2.1 % [facility] LABORATORY Eosinophils Abs 0.1 0.0 - 0.4 [facility] x10(3)/[facility] LABORATORY Basophils % 0.4 % [facility] LABORATORY Basophils Abs 0.0 0.0 - 0.1 [facility] x10(3)/[facility] LABORATORY Immature Gran % 0.60 % [...] Rain Gran Abs 0.04 0.00 - 0.04 x10(3)/[facility] MAR Y [facility] LABORATORY Specimen Anatomical Collection Method Collection Time Receive d Time (Source) Location / / Volume Laterality Blood 05/21/2022 6:15 AM 6:38 EDT AM EDT Resulting Agency Comment Spec In Lab Edward Rodríguez MD HEMATOLOGY ORDERABLES Performing Organization Address City/State/[place] [address] (ABNORMAL) Hemogram (05/21/2022 6:15 AM EDT) [facility] gist Method Time Signature WBC 6.8 4.0 - 9.5 [facility] x10(3)/[facility] LABORATORY RBC 3.59 (L) 4.58 - [facility]54 [facility] x10(6)/[facility] LABORATORY Hemoglobin 11.8 (L) 13.7 - [facility] 16.5 g/dL [facility] LABORATORY Hematocrit 34.5 (L) 40.5 - [facility] 48.5 % [facility] LABORATORY MCV 96.1 (H) 82.9 - [facility] 93.1 fL [facility] LABORATORY MCH 32.9 (H) 27.5 - [facility] 32.1 pg [facility] LABORATORY MCHC 34.2 32.0 - [facility] 35.7 g/dL [facility] LABORATORY Platelets 198 145 - 357 [facility] x10(3)/[facility] LABORATORY RDWSD 44.9 36.0 - [facility] 45.0 [facility] LABORATORY RDWCV 12.6 11.4 - [facility] 13.8 % [facility] MPV 10.0 7.6 - 12.9 [facility] LABORATORY nRBC % Auto 0.3 % [facility] nRBC Abs Auto 0.020 (H) 0.000 - [facility] 0.000 [facility] x10(3)/[facility] LABORATORY Specimen Anatomical Collection Method Collection Time Receive d Time (Source) Location / / Volume Laterality Blood 05/21/2022 6:15 AM 2 6:38 EDT AM EDT Resulting Agency Comment Spec In Lab Edward Rodríguez MD HEMATOLOGY ORDERABLES Performing Organization Address City/[facility]/[place] [address] EKG 12 Lead (05/20/2022 7:04 PM EDT) Component Value Ref Range Test Analysis Performed Pathologis t Method Time At Signature Ventricular rate 101 BPM MUSE SYSTEM QRS Duration 116 ms MUSE SYSTEM Q-T Interval 378 ms MUSE SYSTEM QTC Calculated 490 ms MUSE SYSTEM (Bezet) Calculated R Garner -53 degrees MUSE SYSTEM Calculated T Garner 101 degrees MUSE SYSTEM INTERPRETATION Atrial fibrillation [...] Laterality Volume Narrative 05/20/2022 7:09 PM EDT ?[facility] ? Cardiac Cathete rization/Intervention Report ? Patient Name: Koko Zamora. ? Procedure Date: 05/20/2022 ? A #: [id number] ? Primary Physician: Abundio Servin ? Case #: [id number] ? File Name: [id number] ? Catheterization Order Number: [id number] ? [facility] ? Final Report [place], [place] ? Patient Name: ? Koko Cyr on ? ID#: ?[id number] ? : ?1940 ? Procedure Date: ? May 20, 2022 ?Case #: ? Room: ? 1 ? Case Physician: ? Abundio roldan, M.D. ? Start: ?17:16 ? Admission: ??05/15/2022 ? Referring Physician: ??Jc MalikAAlmita ?Discharge: ??05/21/2022 ? Procedures: ?* Coronary Angiography [...] of this ?procedure, the patient was jose nerique gnated as ASA Class IV. The CSHA [...] was Urgent. The indication for ?the laboratory technician visit is cardiomyo nita. Chest [...] ?3.5 guiding catheter and a 3.5 Fr [place] [facility] [address] ??20 Mhz. ??Imaging ?was successful. ??Image [...] A premounted 2. 75 x 30 mm [place] (AMPARO) was deployed ? with a maximum [...] require ?modification of this regimen. C onsult [facility] Interventional Cardiology for ?questions. ?The 1 year [...] note might be different from the original. [facility] Cardiac Catheterization/Intervention Re port Patient Name: Koko Zamora Procedure Date: 05/20/2022 A #: [id number] Primary Physician: Abundio Servin Case #: File Name: [id number] Catheterization Order Number: [id number] [facility] Final Report [place], [place] Patient Name: Koko Zamora ID#: [id number] : 1940 Procedure Date: May 20, 2022 [...] designated a s ASA Class IV. The [facility] clinical frailty scale is 3: [...] was Urgent. The indication for the laboratory technician visit is cardiomyopathy. C hest pain symptom assessment was: Typical Angina. Technique: A 6 SLFr sheath was inserted in the [facility] radial artery utilizing the Seldinger technique. [...] 3.5 guiding catheter and a 3.5 Fr [place] [facility] [address] [facility] 20 Mhz. Imaging was successful. Image [...] atmospheres. A premounted 2.75 x 30 mm [place] (AMPARO) was deployed with a maximum inflation [...] Signature POC Glucose 123 65 - 199 [facility] mg/dL [facility] LABORATORY Comment: Supplemental ranges: <140 mg/dL before meals <180 mg/dL all other times of the day Specimen Anatomical Collection Method Collection Time Receive d Time (Source) Location / / Volume Laterality Blood 05/20/2022 5:42 PM 2 5:42 EDT PM EDT Fito Summers MD POINT OF CARE TEST ORDERABLE S Performing Organization Address City/State/[place] [address] (ABNORMAL) BMP w/fasting Glucose (05/20/2022 10:50 AM EDT) athologist Signature Glucose 152 (H) 65 - 99 [facility] LABORATORY Comment: ?Fasting* Glucose Interpretive C riteria [...] of Diabetes Mellitus, Position Statement from the [place] [employer]. ??Diabete s Care, Volume 33, [...] MD CHEMISTRY ORDERABLES Performing Organization Address City/[facility]/[place] [address] Heparin (unfractionated) Level (05/20/2022 5:02 AM EDT) P athologist Signature Heparin UFH 0.57 IU/mL [facility] LABORATORY Comment: Heparin (anti-Xa) levels should [...] Summers MD HEMATOLOGY ORDERABLES Performing Organization Address City/[facility]/ZIP Code Phon e Number [address] (ABNORMAL) Differential, Automated (05/20/2022 5:02 AM EDT) Patholo gist Method Time Signature Neutrophils % 58.1 % [facility] LABORATORY Neutr Abs (ANC) 4.52 1.70 - [facility] 6.10 [facility] x10(3)/[facility] LABORATORY Lymphocytes % 24.1 % [facility] LABORATORY Lymphocytes Abs 1.9 0.9 - 3.2 [facility] x10(3)/[facility] LABORATORY Monocytes % 13.8 % [facility] LABORATORY Monocyte Abs 1.1 (H) 0.3 - 0.9 [facility] x10(3)/[facility] LABORATORY Eosinophils % 2.6 % [facility] LABORATORY Eosinophils Abs 0.2 0.0 - 0.4 [facility] x10(3)/[facility] LABORATORY Basophils % 0.8 % [facility] LABORATORY Basophils Abs 0.1 0.0 - 0.1 [facility] x10(3)/[facility] LABORATORY Immature Gran % 0.60 % [...] Organization Address City/State/[place] [address] (ABNORMAL) Hemogram (05/20/2022 5:02 AM EDT) Analysis Performed At Patho logist Time Signature WBC 7.8 4.0 - 9.5 [facility] x10(3)/[facility] LABORATORY RBC 3.53 (L) 4.58 - [facility] 5.54 [facility] x10(6)/[facility] LABORATORY Hemoglobin 11.4 (L) 13.7 - [facility] 16.5 g/dL [facility] LABORATORY Hematocrit 34.3 (L) 40.5 - [facility] 48.5 % [facility] LABORATORY MCV 97.2 (H) 82.9 - [facility] 93.1 [facility] LABORATORY MCH 32.3 (H) 27.5 - [facility] 32.1 pg [facility] LABORATORY MCHC 33.2 32.0 - [facility] 35.7 g/dL [facility] LABORATORY Platelets 181 145 - 357 [facility] x10(3)/[facility] LABORATORY RDWSD 46.4 (H) 36.0 - [facility] 45.0 [facility] RDWCV 13.0 11.4 - [facility] 13.8 % [facility] LABORATORY MPV 10.4 7.6 - 12.9 [facility] nRBC % Auto 0.0 % [facility] nRBC Abs Auto 0.000 0.000 - [facility] 0.000 [facility] x10(3)/[facility] LABORATORY Specimen Anatomical Collection Method Collection Time Receive d Time (Source) Location / / Volume Laterality Blood 05/20/2022 5:02 AM 5:19 EDT AM EDT Resulting Agency Comment Spec In Lab Edward Rodríguez MD HEMATOLOGY ORDERABLES Performing Organization Address City/State/[place] [address] Heparin (unfractionated) Level (05/19/2022 3:26 AM EDT) P athologist Signature Heparin UFH 0.59 IU/mL [facility] LABORATORY Comment: Heparin (anti-Xa) levels should [...] Organization Address City/State/[place] [address] (ABNORMAL) Differential, Automated (05/19/2022 3:26 AM EDT) [facility] Method Time Signature Neutrophils % 62.1 % [facility] LABORATORY Neutr Abs (ANC) 4.59 1.70 - [facility] 6.10 [facility] x10(3)/[facility] LABORATORY Lymphocytes % 22.1 % [facility] LABORATORY Lymphocytes Abs 1.6 0.9 - 3.2 [facility] x10(3)/[facility] LABORATORY Monocytes % 13.5 % [facility] LABORATORY Monocyte Abs 1.0 (H) 0.3 - 0.9 [facility] x10(3)/[facility] LABORATORY Eosinophils % 1.3 % [facility] LABORATORY Eosinophils Abs 0.1 0.0 - 0.4 [facility] x10(3)/[facility] LABORATORY Basophils % 0.5 % [facility] LABORATORY Basophils Abs 0.0 0.0 - 0.1 [facility] x10(3)/[facility] LABORATORY Immature Gran % 0.50 % [...] Gran Abs 0.04 0.00 - 0.04 x10(3)/[facility] LABORATORY Specimen Anatomical Collection Method Collection Time Receive d Time (Source) Location / / Volume Laterality Blood 05/19/2022 3:26 AM 2 3:59 EDT AM EDT Resulting Agency Comment Spec In Lab dEward Rodríguez MD HEMATOLOGY ORDERABLES Performing Organization Address City/State/[place] [address] (ABNORMAL) Hemogram (05/19/2022 3:26 AM EDT) Analysis Performed At Patho logist Time Signature WBC 7.4 4.0 - 9.5 [facility] x[facility](3[facility] LABORATORY RBC 3.74 (L) 4.58 - [facility] 5.54 [facility] x10(6)/[facility] LABORATORY Hemoglobin 12.1 (L) 13.7 - [facility] 16.5 g/dL [facility]ORATORY Hematocrit 36.4 (L) 40.5 - [facility] 48.5 % [facility] LABORATORY MCV 97.3 (H) 82.9 - [facility] 93.1 [facility] LABORATORY MCH 32.4 (H) 27.5 - [facility] 32.1 pg [facility] LABORATORY MCHC 33.2 32.0 - [facility] 35.7 g/dL [facility] LABORATORY Platelets 168 145 - 357 [facility] x10(3)/[facility] LABORATORY RDWSD 46.9 (H) 36.0 - [facility] 45.0 [facility] LABORATORY RDWCV 13.0 11.4 - [facility] 13.8 % [facility] LABORATORY MPV 10.5 7.6 - 12.9 [facility] LABORATORY nRBC % Auto 0.0 % [facility]ORATORY nRBC Abs Auto 0.000 0.000 - [facility] 0.000 [facility] x10(3)/[facility] LABORATORY Specimen Anatomical Collection Method Collection Time Receive d Time (Source) Location / / Volume Laterality Blood 05/19/2022 3:26 AM 2 3:59 EDT AM EDT Resulting Agency Comment Spec In Lab Edward Rodríguez MD HEMATOLOGY ORDERABLES Performing Organization Address City/[facility]/[place] [address] TSH (05/18/2022 8:00 PM EDT) P athologist Signature TSH 2.27 0.27 - 4.20 [facility] mcIU/mL [facility]AT[facility] Comment: Reference Interval (mcIU/mL): Females: ??First Trimester: 0.23-3.88 ??Second Trimester: 0.22-3.90 ??Third Trimester: 0.44-4.66 Specimen Anatomical Collection Method Collection Time Receive d Time (Source) Location / / Volume Laterality Blood 05/18/2022 8:00 PM 8:06 EDT PM EDT Resulting Agency Comment Spec In Lab Fito Summers MD CHEMISTRY ORDERABLES Performing Organization Address [facility] Phon e Number [address] (ABNORMAL) Differential, Automated (05/18/2022 3:34 AM EDT) Patholo gist Method Time Signature Neutrophils % 67.2 % [facility] LABORATORY Neutr Abs (ANC) 5.89 1.70 - [facility] 6.10 [facility] x10(3)/[facility] LABORATORY Lymphocytes % 17.1 % [facility] LABORATORY Lymphocytes Abs 1.5 0.9 - 3.2 [facility] x10(3)/[facility] LABORATORY Monocytes % 13.6 % [facility] LABORATORY Monocyte Abs 1.2 (H) 0.3 - 0.9 [facility] x10(3)/[facility] LABORATORY Eosinophils % 1.0 % [facility] LABORATORY Eosinophils Abs 0.1 0.0 - 0.4 [facility] x10(3)/[facility] LABORATORY Basophils % 0.6 % [facility] LABORATORY Basophils Abs 0.0 0.0 - 0.1 [facility] x10(3)/[facility] LABORATORY Immature Gran % 0.50 % [...] Rain Gran Abs 0.04 0.00 - 0.04 x10(3)/[facility] Y [facility] LABORATORY Specimen Anatomical Collection Method Collection Time Receive d Time (Source) Location / / Volume Laterality Blood 05/18/2022 3:34 AM 3:48 EDT AM EDT Resulting Agency Comment Spec In Lab Edward Rodríguez MD HEMATOLOGY ORDERABLES Performing Organization Address City/State/[place] [address] (ABNORMAL) Hemogram (05/18/2022 3:34 AM EDT) Analysis Performed At Patho logist Time Signature WBC 8.8 4.0 - 9.5 [facility] x10(3)/[facility] LABORATORY RBC 3.45 (L) 4.58 - [facility] 5.54 [facility] x10(6)/[facility] LABORATORY Hemoglobin 11.2 (L) 13.7 - [facility] 16.5 g/dL [facility] LABORATORY Hematocrit 33.0 (L) 40.5 - [facility] 48.5 % [facility] LABORATORY MCV 95.7 (H) 82.9 - [facility] 93.1 [facility] LABORATORY MCH 32.5 (H) 27.5 - [facility] 32.1 pg [facility]ORATORY MCHC 33.9 32.0 - [facility] 35.7 g/dL [facility]ORATORY Platelets 130 (L) 145 - 357 [facility] x10(3)/[facility] LABORATORY RDWSD 46.2 (H) 36.0 - [facility] 45.0 [facility] LABORATORY RDWCV 13.2 11.4 - [facility] 13.8 % [facility] LABORATORY MPV 10.8 7.6 - 12.9 [facility] LABORATORY nRBC % Auto 0.0 % [facility]ORAT[facility] nRBC Abs Auto 0.000 0.000 - [facility] 0.000 [facility] x10(3)/[facility] LABORATORY Specimen Anatomical Collection Method Collection Time Receive d Time (Source) Location / / Volume Laterality Blood 05/18/2022 3:34 AM 2 3:48 EDT AM EDT Resulting Agency Comment Spec In Lab Edward Rodríguez MD HEMATOLOGY ORDERABLES Performing Organization Address City/[facility]/ZIP Code Phon e Number [address] Heparin (unfractionated) Level (05/18/2022 3:34 AM EDT) athologist Signature Heparin UFH 0.59 IU/mL [facility] LABORATORY Comment: Heparin (anti-Xa) levels should [...] Organization Address City/State/ZIP Code Phon e Number [address] Magnesium (05/17/2022 3:33 AM EDT) P athologist Signature Magnesium 0.76 0.69 - 1.07 [facility] mmol/L [facility] LABORATORY Specimen Anatomical Collection Method Collection Time Receive d Time (Source) Location / / Volume Laterality Blood Venous Draw / 05/17/2022 3:33 AM 05/17/20 4:05 Unknown EDT AM EDT Resulting Agency Comment Spec In Lab [place] HIRAL CHEMISTRY ORDERABLES Performing Organization Address City/State/[place] [address] (ABNORMAL) Basic Metabolic Panel (non-fasting) (05/17/2022 3:33 AM EDT) P athologist Signature Glucose Lvl 158 65 - 199 [facility] mg/dL [facility] LABORATORY [...] Organization Address City/State/[place] [address] (ABNORMAL) Differential, Automated (05/17/2022 3:33 AM EDT) [facility] gist Method Time Signature Neutrophils % 65.5 % [facility] LABORATORY Neutr Abs (ANC) 6.84 (H) 1.70 - [facility] 6.10 [facility] x10(3)/[facility] LABORATORY Lymphocytes % 19.7 % [facility] LABORATORY Lymphocytes Abs 2.1 0.9 - 3.2 [facility] x10(3)/[facility] LABORATORY Monocytes % 13.1 % [facility] LABORATORY Monocyte Abs 1.4 (H) 0.3 - 0.9 [facility] x10(3)/[facility] LABORATORY Eosinophils % 0.6 % [facility] LABORATORY Eosinophils Abs 0.1 0.0 - 0.4 [facility] x10(3)/[facility] LABORATORY Basophils % 0.6 % [facility]ORATORY Basophils Abs 0.1 0.0 - 0.1 [facility] x10(3)/[facility] LABORATORY Immature Gran % 0.50 % [...] Organization Address City/State/[place] [address] (ABNORMAL) Hemogram (05/17/2022 3:33 AM EDT) Analysis Performed At Patho logist Time Signature WBC 10.4 (H) 4.0 - 9.5 [facility](3[facility] LABORATORY RBC 3.72 (L) 4.58 - [facility] 5.54 [facility] x10(6)/[facility] LABORATORY Hemoglobin 12.0 (L) 13.7 - [facility] 16.5 g/dL [facility] LABORATORY Hematocrit 36.4 (L) 40.5 - [facility] 48.5 % [facility] LABORATORY MCV 97.8 (H) 82.9 - [facility] 93.1 [facility] LABORATORY MCH 32.3 (H) 27.5 - [facility] 32.1 pg [facility] LABORATORY MCHC 33.0 32.0 - [facility] 35.7 g/dL [facility] LABORATORY Platelets 149 145 - 357 [facility] x10(3)/[facility] LABORATORY RDWSD 48.7 (H) 36.0 - [facility] 45.0 [facility] LABORATORY RDWCV 13.5 11.4 - [facility] 13.8 % [facility] LABORATORY MPV 10.6 7.6 - 12.9 [facility] LABORATORY nRBC % Auto 0.0 % [facility]OR[facility] nRBC Abs Auto 0.000 0.000 - [facility] 0.000 [facility] x10(3)/[facility] LABORATORY Specimen Anatomical Collection Method Collection Time Receive d Time (Source) Location / / Volume Laterality Blood 05/17/2022 3:33 AM 2 3:53 EDT AM EDT Resulting Agency Comment Spec In Lab Edward Rodríguez MD HEMATOLOGY ORDERABLES Performing Organization Address City/State/[place] [address] (ABNORMAL) Urinalysis Microscopic Exam [...] Organization Address City/State/ZIP Code Phon e Number [address] (ABNORMAL) Urinalysis with reflex Culture (05/16/2022 11:15 PM EDT) Patholo gist Method Time Signature Glucose UA Negative Negative [facility] mg/dL [facility] LABORATORY Protein UA Negative Negative [facility] mg/dL [facility] LABORATORY Bilirubin UA Negative Negative [facility] mg/dL [facility] LABORATORY [...] [facility] Nitrite UA Negative Negative [facility] LABORATORY Leukocytes UA Negative Negative [facility] LABORATORY Appearance UA Clear Clear [facility] LABORATORY Spec [place] UA 1.021 1.005 - 1.030 [facility] LABORATORY Color UA Yellow Yellow [facility] LABORATORY Culture Reflexed No [facility] LABORATORY Specimen Anatomical Collection Method Collection Time Receive d Time (Source) Location / / Volume Laterality Clean Catch 05/16/2022 11:15 05/16/2022 Urine PM EDT 11:30 PM EDT Resulting Agency Comment Spec In Lab Fito Summers MD URINE ORDERABLES Performing Organization Address City/[facility]/[place] [address] Heparin (unfractionated) Level (05/16/2022 10:59 PM EDT) athologist Signature Heparin UFH 0.65 IU/mL [facility] LABORATORY Comment: Specimen drawn more than [...] Summers MD HEMATOLOGY ORDERABLES Performing Organization Address City/[facility]/[place] [address] XR Chest One View [...] have questions please contact the health rn intensive care unit that requested your imaging first. ? Electronically signed by: Tiffanie George MD , [facility] ([phone]), at 05/16/2022 9:27 PM Narrative 05/16/2022 9:27 [...] have questions please contact the health rn intensive care unit that requested your imaging first. Electronically signed by: Tiffanie George MD , [facility] ([phone]), at 05/16/2022 9:27 PM Fito Summers MD IMG DX ORDERABLES EKG 12 Lead (05/16/2022 8:57 PM EDT) Component Value Ref Range Test Analysis Performed Pathologis t Method Time At Signature Ventricular rate 117 BPM MUSE SYSTEM QRS Duration 112 ms MUSE SYSTEM Q-T Interval 346 ms MUSE SYSTEM QTC Calculated 482 ms MUSE SYSTEM (Bezet) Calculated R Garner -48 degrees MUSE SYSTEM Calculated T Garner 111 degrees MUSE SYSTEM INTERPRETATION Atrial fibrillation [...] P athologist Signature Heparin UFH 0.53 IU/mL [facility] LABORATORY Comment: Heparin (anti-Xa) levels should [...] Address City/State/ZIP Code [place] [address] ECHOCARDIOGRAM COMPLETE W CONTRAST (05/16/2022 12:49 PM EDT) P athologist Signature EF 28 HEARTLAB SYSTEM Anatomical Region Laterality Modality Cardiac Other Specimen (Source) Anatomical Collection Method Collection Time Re ceived Time Location / / Volume Laterality 05/16/2022 11:22 AM EDT Narrative 05/16/2022 1:54 PM EDT ?[facility] ?[address] ? [place] [address] ?Voice: ?Fax: ? Echocardiogram Report Name: KOKO ZAMORA ?Study Date: 05/16/2022 11:22 AM ? Patient Location: [address] [place] [address] : 1940 ? Height: 67.5 in ? Account: [id number] Age: 81 yrs ? Weight: 176 lb Gender: Male ?BSA: 1.9 m2 Ordering Physician: FITO SUMMERS Referring Physician: MALI FLORIAN Performed By: Jolene Bernard RDCS Exam Location: [facility]. Interpretation Summary Left ventricle is mildly [...] and LV systolic dysfunction are new. Procedure Complete-[id number]. Image enhancement Optiso n was used for [...] note might be different from the original. [facility] [address] [place] [address] Voice: Fax: Echocardiogram Report Name: ZAMORAKOKO Study Date: 05/2022 11:22 AM Patient Location: [address] [place] [address] : 1940 Height: 67.5 in Account: [id number] Age: 81 yrs Weight: 176 lb Gender: Male BSA: 1.9 m2 Ordering Physician: FITO SUMMERS Referring Physician: MALI FLORIAN Performed By: Jolene Bernard RDCS Exam Location: [facility]. Interpretation Summary Left ventricle is mildly [...] and LV systolic dysfunction are new. Procedure Complete-[id number]. Image enhancement Optiso n was used for [...] (ABNORMAL) Differential, Automated (05/16/2022 3:01 AM EDT) [facility] Method Time Signature Neutrophils % 78.8 % [facility] LABORATORY Neutr Abs (ANC) 9.11 (H) 1.70 - [facility] 6.10 [facility] x10(3)/[facility] L LABORATORY Lymphocytes % 9.4 % [facility] LABORATORY Lymphocytes Abs 1.1 0.9 - 3.2 [facility] x10(3)/[facility] LABORATORY Monocytes % 10.9 % [facility] LABORATORY Monocyte Abs 1.3 (H) 0.3 - 0.9 [facility] x10(3)/[facility] LABORATORY Eosinophils % 0.0 % [facility] LABORATORY Eosinophils Abs 0.0 0.0 - 0.4 [facility] x10(3)/[facility] LABORATORY Basophils % 0.3 % [facility] LABORATORY Basophils Abs 0.0 0.0 - 0.1 [facility] x10(3)/[facility] LABORATORY Immature Gran % 0.60 % [...] Organization Address City/State/[place] [address] (ABNORMAL) Hemogram (05/16/2022 3:01 AM EDT) Analysis Performed At Patho logist Time Signature WBC 11.6 (H) 4.0 - 9.5 [facility] x10(3)/[facility] LABORATORY RBC 3.62 (L) 4.58 - [facility] 5.54 [facility] x10(6)/[facility] LABORATORY Hemoglobin 12.0 (L) 13.7 - [facility] 16.5 g/dL [facility] LABORATORY Hematocrit 35.3 (L) 40.5 - [facility] 48.5 % [facility] LABORATORY MCV 97.5 (H) 82.9 - [facility] 93.1 [facility] LABORATORY MCH 33.1 (H) 27.5 - [facility] 32.1 pg [facility] LABORATORY MCHC 34.0 32.0 - [facility] 35.7 g/dL [facility] LABORATORY Platelets 151 145 - 357 [facility] x10(3)/[facility] LABORATORY RDWSD 47.6 (H) 36.0 - IFRAH WHEATLEYFAYE 45.0 [facility] LABORATORY RDWCV 13.3 11.4 - IFRAH WHEATLEYFAYE 13.8 % [facility] LABORATORY MPV 10.5 7.6 - 12.9 [facility] LABORATORY nRBC % Auto 0.0 % [facility] LABORATORY nRBC Abs Auto 0.000 0.000 - IFRAH FAYE 0.000 [facility] x10(3)/[facility] LABORATORY Specimen Anatomical Collection Method Collection Time Receive d Time (Source) Location / / Volume Laterality Blood 05/16/2022 3:01 AM 2 3:36 EDT AM EDT Resulting Agency Comment Spec In Lab Erin Garza MD HEMATOLOGY ORDERABLES Performing Organization Address City/[facility]/[place] [address] Phosphorus (05/16/2022 3:01 AM EDT) P athologist Signature Phosphorus 3.7 2.5 - 4.5 IFRAH FAYE mg/dL [facility] LABORATORY Specimen Anatomical Collection Method Collection Time Receive d Time (Source) Location / / Volume Laterality Blood 05/16/2022 3:01 AM 2 3:36 EDT AM EDT Resulting Agency Comment Spec In Lab Fito Summers MD CHEMISTRY ORDERABLES Performing Organization Address City/[facility]/ZIP Code Phon e Number [address] Magnesium (05/16/2022 3:01 AM EDT) athologist Signature Magnesium 0.77 0.69 - 1.07 [facility] mmol/L [facility] LABORATORY Specimen Anatomical Collection Method Collection Time Receive d Time (Source) Location / / Volume Laterality Blood 05/16/2022 3:01 AM 2 3:36 EDT AM EDT Resulting Agency Comment Spec In Lab Fito Summers MD CHEMISTRY ORDERABLES Performing Organization Address City/State/[place] [address] (ABNORMAL) Basic Metabolic Panel (non-fasting) (05/16/2022 3:01 AM EDT) athologist Signature Glucose Lvl 222 (H) 65 - 199 [facility] mg/dL [facility] LABORATORY [...] Organization Address City/State/[place] [address] (ABNORMAL) BLOOD GAS 2 ARTERIAL (05/15/2022 3:33 PM EDT) Analysis Performed At Patho logist Time Signature pH Art 7.33 (L) 7.35 - [facility] 7.45 [facility] LABORATORY pCO2 Art 41 35 - 45 [facility] mmHg [facility] LABORATORY pO2 Art 131 (H) 85 - 104 [facility] LABORATORY HCO3 Art 21.1 20.0 - [facility] 26.0 [facility] mmol/[facility] LABORATORY BE Art -4.8 (L) -3.0 - 3.0 [facility] mmol/L [facility] LABORATORY Hgb Blood Gas 13.4 (L) 13.7 - [facility] 16.5 g/dL [facility] O2HB Art 96.9 94.0 - [facility] 97.0 % [facility] LABORATORY COHB Art 1.4 % [facility] [...] Organization Address City/State/[place] [address] (ABNORMAL) BLOOD GAS 2 ARTERIAL (05/15/2022 2:06 PM EDT) Analysis Performed At Patho logist Time Signature pH Art 7.39 7.35 - [facility] 7.45 [facility] LABORATORY pCO2 Art 35 35 - 45 [facility] mmHg [facility] LABORATORY pO2 Art 135 (H) 85 - 104 [facility] LABORATORY HCO3 Art 20.8 20.0 - [facility] 26.0 [facility] mmol/L [facility] LABORATORY BE Art -4.2 (L) -3.0 - 3.0 [facility] mmol/L [facility] LABORATORY Hgb Blood Gas 14.5 13.7 - [facility] 16.5 g/dL [facility] LABORATORY O2HB Art 97.2 (H) 94.0 - [facility] 97.0 % [facility] LABORATORY COHB Art 1.2 % [facility] [...] Organization Address City/State/[place] [address] (ABNORMAL) Prothrombin Time (05/15/2022 [...] Andrew DO HEMATOLOGY ORDERABLES Performing Organization Address City/[facility]/[place] [address] (ABNORMAL) APTT (05/15/2022 12:30 [...] Morales DO HEMATOLOGY ORDERABLES Performing Organization Address [facility]/ZIP Code Phon e Number [address] Gold Tube HOLD (05/15/2022 12:20 PM EDT) athologist Signature Gold Hold Sample in [facility]. [facility] LABORATORY Specimen Anatomical Collection Method Collection Time Receive d Time (Source) Location / / Volume Laterality Blood No Charge / 05/15/2022 12:20 05/15/2022 Unknown PM EDT 12:20 PM EDT Lc TRIPP CHEMISTRY ORDERABLES Performing Organization Address City/[facility]/[place] [address] Type and Screen Validity (05/15/2022 12:00 PM EDT) [facility] gist Method Time Signature T&S only valid [facility] at [facility] LABORATORY Comment: This Type and Screen result is only valid at the [facility] Specimen Anatomical Collection Method Collection Time Receive d Time (Source) Location / / Volume Laterality Blood 05/15/2022 12:00 05/15/2022 PM EDT 12:17 PM EDT Resulting Agency Comment Spec In Lab Lc TRIPP BLOOD BANK ORDERABLES Performing Organization Address City/[facility]/ZIP Code Phon e Number [address] ABORH Recheck Status (05/15/2022 12:00 PM EDT) [facility] Method Time Signature ABORH Recheck Order Placed IFRAH KEANE K Order [facility] LABORATORY ABORH Type Complete [facility] LABORATORY Specimen Anatomical Collection Method Collection Time Receive d Time (Source) Location / / Volume Laterality Blood 05/15/2022 12:00 05/15/2022 PM EDT 12:17 PM EDT Resulting Agency Comment Spec In Lab Lc TRIPP BLOOD BANK ORDERABLES Performing Organization Address City/[facility]/[place] [address] CK (05/15/2022 12:00 PM EDT) P athologist Signature CK, Total 87 0 - 200 [facility] unit/L [facility] LABORATORY Specimen Anatomical Collection Method Collection Time Receive d Time (Source) Location / / Volume Laterality Blood Venous Draw / 05/15/2022 12:00 05/15/2022 Unknown PM EDT 12:19 PM EDT Resulting Agency Comment Spec In Lab Fito Summers MD CHEMISTRY ORDERABLES Performing Organization Address City/State/[place] [address] Antibody screen (05/15/2022 12:00 PM EDT) [facility] Method Time Signature Ab Screen Negative [facility] LABORATORY Expires at 05/18/2022 IFRAH FAYE 2359 on: [facility] LABORATORY Specimen Anatomical Collection Method Collection Time Receive d Time (Source) Location / / Volume Laterality Blood 05/15/2022 12:00 05/15/2022 PM EDT 12:17 PM EDT Resulting Agency Comment Spec In Lab Lc TRIPP BLOOD BANK ORDERABLES Performing Organization Address City/State/ZIP Code Phon e Number [address] ABO/Rh Typing (05/15/2022 12:00 PM EDT) P athologist Signature ABORh Type O Pos [facility] LABORATORY Specimen Anatomical Collection Method Collection Time Receive d Time (Source) Location / / Volume Laterality Blood 05/15/2022 12:00 05/15/2022 PM EDT 12:17 PM EDT Resulting Agency Comment Spec In Lab Lc Tan Kimberly TRIPP BLOOD BANK ORDERABLES Performing Organization Address City/State/[place] [address] (ABNORMAL) Differential, Automated (05/15/2022 12:00 PM EDT) Patholo gist Method Time Signature Neutrophils % 79.4 % [facility] LABORATORY Neutr Abs (ANC) 7.49 (H) 1.70 - [facility] 6.10 [facility] x10(3)/[facility] LABORATORY Lymphocytes % 11.3 % [facility] LABORATORY Lymphocytes Abs 1.1 0.9 - 3.2 [facility] x10(3)/[facility] LABORATORY Monocytes % 7.8 % [facility] LABORATORY Monocyte Abs 0.7 0.3 - 0.9 [facility] x10(3)/[facility] LABORATORY Eosinophils % 0.6 % [facility] LABORATORY Eosinophils Abs 0.1 0.0 - 0.4 [facility] x10(3)/[facility] LABORATORY Basophils % 0.6 % [facility] LABORATORY Basophils Abs 0.1 0.0 - 0.1 [facility] x10(3)/[facility] LABORATORY Immature Gran % 0.30 % [...] Rain Gran Abs 0.03 0.00 - 0.04 x10(3)/[facility] LABORATORY Specimen Anatomical Collection Method Collection Time Receive d Time (Source) Location / / Volume Laterality Blood 05/15/2022 12:00 05/15/2022 PM EDT 12:19 PM EDT Resulting Agency Comment Spec In Lab Lc TRIPP HEMATOLOGY ORDERABLES Performing Organization Address City/State/[place] [address] (ABNORMAL) Hemogram (05/15/2022 12:00 PM EDT) Analysis Performed At Patho logist Time Signature WBC 9.4 4.0 - 9.5 [facility](3[facility] LABORATORY RBC 4.48 (L) 4.58 - [facility] FAYE 5.54 [facility] x10(6)/[facility] LABORATORY Hemoglobin 14.5 13.7 - [facility] 16.5 g/dL [facility] LABORATORY Hematocrit 42.4 40.5 - [facility] 48.5 % [facility] LABORATORY MCV 94.6 (H) 82.9 - [facility] FAYE 93.1 [facility] LABORATORY MCH 32.4 (H) 27.5 - [facility] 32.1 pg [facility] LABORATORY MCHC 34.2 32.0 - [facility] 35.7 g/dL [facility] LABORATORY Platelets 209 145 - 357 [facility] x10(3)/[facility] LABORATORY RDWSD 45.9 (H) 36.0 - [facility] 45.0 [facility] LABORATORY RDWCV 13.1 11.4 - [facility] 13.8 % [facility] LABORATORY MPV 10.5 7.6 - 12.9 [facility] nRBC % Auto 0.0 % [facility] LABORATORY nRBC Abs Auto 0.000 0.000 - [facility] 0.000 [facility] x10(3)/[facility] LABORATORY Specimen Anatomical Collection Method Collection Time Receive d Time (Source) Location / / Volume Laterality Blood 05/15/2022 12:00 05/15/2022 PM EDT 12:19 PM EDT Resulting Agency Comment Spec In Lab Lc TRIPP HEMATOLOGY ORDERABLES Performing Organization Address City/State/[place] [address] (ABNORMAL) Basic Metabolic Panel (non-fasting) (05/15/2022 12:00 PM EDT) P athologist Signature Glucose Lvl 203 (H) 65 - 199 [facility] mg/dL [facility] LABORATORY [...] Organization Address City/State/[place] [address] documented in this encounter [...] Barbie joseph RN - Reason: NPO)1750 ([facility] Hold - Provider: Admin Adt - Reason: Transfer to a Procedural area)1955 ([facility] Unhold - Provider: Admin Adt)2131 [...] Oral, EVERY EVENING, First dose o n Brandi 7/7/22 at 0900, Until Discontinued, Routine sodium chloride 0.9 % (flush) (BD PosiFlush Normal Ubaldo ine 0.9) flush 5 mL 09 (Not Given - Provider: Caroline Zamora RN - Reason: Contraindicated)2009 (Given - Provider: Nuris Lester, DION) 0900 (Not Given - Provider: Barbie Joyce [...] Admin Adt) 218 (Restarted - Provider: Tere Blankenship, RN - [...] Admin Adt) 0-8,000 Units, Intravenous, BOLUS PER ABRAHAM PROTOCOL, Starting on Fri05/16/22 at 0758, Until [...] (CANCELED) 172 (Given - Provider: Flavia Schuler DION)1745 (Given - Provider: Negra Bailey, DION) ONCE [...] 5 mg 0605 (Given - Pr ovider: Eimly Sauceda RN) 1750 (JAN Hold - Provider: [...] tablet 10-15 mg(Linked Group 2) 1750 ([facility] Hold - Provider: [...] (Roxicodone) tablet 5-10 mg(Linked Group 2) 1750 ([facility] Hold - Provider: [...]
Routine documented in this encounter Care Teams Department Supervisor Relationship Specialty Start Date End Date Bobby Das MD PCP - General 10/02/[address] [place] [address] [place] [phone] documented as of this encounter
--- OUTSIDE RECORDS SUMMARY | 2022-08-05 09:02 | XMS_ITS | Encounter Summary ---
:1940 Author Organization [facility] [place] [address] Care Team Providers Name Role Phone Bobby Das MD Primary Care Provider Encounter Details Date Type Department Care Team Description 10/25/2020 Laboratory Appointment Lab at [facility] Compression fracture [facility] [place] [phone] Social History Tobacco Use Types Packs/Day Years [...] TH Visit (TeleHealth) Gastroenterology Dixon Collins MD [facility] DR GASTROENTEROLOGY DEPT [place], [place] [address] (Rebekah rk) 09/05/2022 Appointment Cardiology Trinity Reid MD [facility] ER CARDIOLOGY [place], [place] [address] (Wo rk) 09/05/2022 Office Visit Cardiology Trinity Reid MD [facility] CARDIOLOGY [place], [place] [address] (Rebekah rojas) 10/02/2022 Clinical Support Dermatology Thai Lynn MD [facility] DR JENNY BILLY-DERMAT [place], [place] [address] (Wo rk) 10/02/2022 Procedure visit Dermatology Jace Lynn MD [facility] DR JENNY BILLY-DERMAT [place], [place] [address] (Wo rk) documented as of [...] athologist Signature Platelets 192 145 - 357 [facility] x10(3)/[facility] LABORATORY Plat Immature 2.6 0.0 - 7.4 ticketea % % [facility] LABORATORY Comment: Limitation of the Immature Platelet Frac tion (IPF)-May be less reliable when the platelet count is less than 74p274/u L due to statistical imprecision. The IPF [...] in a decreased state of production. References: [employer] The Clinical Value of the Immature Platelet Fraction (IPF) in Cell Recovery Document Number [id number] 04/2011 [employer] The Role of the Imm ature Platelet Fraction (IPF) in the Differential Diagnosis of Thrombocytopen ia, Document [id number] V05/10/23 P0514 Specimen Anatomical Collection Method Collection Time Receive d Time (Source) Location / / Volume Laterality Blood specimen 10/25/2020 6:35 AM 020 6:52 (specimen) EST AM EST Resulting Agency Comment Spec In Lab Alphonso Esquivel DO HEMATOLOGY ORDERABLES Performing Organization Address City/[facility]/[place] [address] Prothrombin Time (10/25/2020 6:35 AM EST) athologist Signature PT 10.8 9.4 - 12.5 [facility] LABORATORY INR 1.0 [facility] [...] Esquivel DO HEMATOLOGY ORDERABLES Performing Organization Address City/[facility]/ZIP Code [place] [address] documented in this encounter Visit Diagnoses Diagnosis Compression fracture of T9 vertebra, ini tial encounter documented in this encounter Care Teams Box Folding Machine Operator Relationship Specialty Start Date End Date Bobby Das MD PCP - General 10/02/[address] [place] [address] [place] [phone] documented as of this encounter
--- OUTSIDE RECORDS SUMMARY | 2022-08-05 09:02 | XMS_ITS | Encounter Summary ---
:1940 Author Organization [facility] [place] [address] Care Team Providers Name Role Phone Bobby Das MD Primary Care Provider Encounter Details Date Type Department Care Team Description 09/06/2020 Ancillary Procedure Radiology at [facility] Amy Grimaldo [address] [place] [address] 10 LITTLE JAY [phone] NEUROSURGERY-UVN Jovanny [place], [place] [address] Social History Tobacco Use Types [...] Visit (TeleHealth) Gastroenterology Dixon Collins MD [facility] GASTROENTEROLOGY DEPT [place], [place] [address] (Wo rk) 09/05/2022 Appointment Cardiology Trinity Reid MD [facility] CARDIOLOGY [place], [place] [address] (Wo rk) 09/05/2022 Office Visit Cardiology Trinity Reid MD [facility] CARDIOLOGY [place], [place] [address] (Wo rk) 10/02/2022 Clinical Support Dermatology Thai Lynn MD [facility] ER DR JENNY BILLY-DERMAT [place], [place] [address] (Wo rk) 10/02/2022 Procedure visit Dermatology Jace Lynn MD [facility] DR JENNY BILLY-DERMAT [place], [place] [address] (Wo rk) documented as of [...] Code Phon e Number [place], [place] documented in this encounter Visit Diagnoses Not on filedocumented in this encounter Care Teams Supervisor General Relationship Specialty Start Date End Date Bobby Das MD PCP - General 10/02/[address] [place] [address] [place] [phone] documented as of this encounter
--- OUTSIDE RECORDS SUMMARY | 2022-08-05 09:02 | XMS_ITS | Encounter Summary ---
:1940 Author Organization [facility] [address] Care Team Providers Name Role Phone Bobby [...] Levels IR Vertebral [place] [address] [place] [address] Fax: Referral ID Status Reason Start Date Expiration Date Visits V isits Requested Authorized [id number] Closed Specialty 07/13/2019 07/12/2020 1 1 Service Requested iagnostic Test (Routine) - Closed Specialty Diagnoses / Procedures Referred By Contact Refer red To Contact Radiology Diagnoses Closed compression fracture of L1 lumbar vertebra with delayed healing, subsequent encounter Malignant neoplasm of prostate Zbigniew Thompson PA [facility] Interventionl Rad [place] [address] [place] [address] Fax: Referral ID Status Reason Start Date Expiration Date Visits V isits Requested Authorized [id number] Closed Specialty 07/13/2019 07/12/2020 1 1 Service [...] Augmentation Lumbar Single [facility] [place] [address] [place] [address] Fax: Referral ID Status Reason Start Date Expiration Date Visits V isits Requested Authorized [id number] Closed Specialty 07/13/2019 07/12/2020 1 1 Service Requested Encounter Details Date Type Department Care Team Description 07/20/2019 Hospital Encounter Radiology [place] [facility] Elmer Loya, Closed compression fracture of L1 lumbar vertebra with delayed healing, subsequent encounter; [facility] Malignant neoplasm of prostate; [facility] Age-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 Discharge Instructions for Vertebroplasty Your vertebroplasty [...] is during regular office hours, please call [phone]. If it is after regular office hours, oron weekends or holidays, please call [phone] and ask to speak to the Manager Heavy Equipment on callfor Interventional Radiology. XXX You have [...] of : 1940 AGE: 78 y.o. Address: [address] [place] [phone] (home) Mobile: No relevant phone numbers on file. Referring Provider: Zbigniew Thompson REASON FOR VISIT: Order Questions Answers Where will study be performed? [facility] Radiology [120] Specify location Lumbar Reason [...] TH Visit (TeleHealth) Gastroenterology Dixon Collins MD [facility] GASTROENTEROLOGY DEPT [place], [place] [address] (Wo rk) 09/05/2022 Appointment Cardiology Trinity Reid MD [facility] CARDIOLOGY [place], [place] [address] (Wo rk) 09/05/2022 Office Visit Cardiology Trinity Reid MD [facility] CARDIOLOGY [place], [place] [address] (Wo rk) 10/02/2022 Clinical Support Dermatology Thai Lynn MD [facility] DR JENNY BILLY-DERMAT [place], [place] [address] (Wo rk) 10/02/2022 Procedure visit Dermatology Jace Lynn MD [facility] DR JENNY BILLY-DERMAT [place], [place] [address] (Wo rk) documented as of [...] made and a 13g a introducer needle (Wikipixel) was advanced through the right pedicle and [...] made an d a 13ga introducer needle (Wikipixel) was advanced through the left pedicle and [...] signed by: Bobby Sullivan MD, [facility] ([phone]), at 07/20/2019 1:20 PM Procedure Note Bobby [...] made and a 13g a introducer needle (Wikipixel) was advanced through the right pedicle and [...] made an d a 13ga introducer needle (Wikipixel) was advanced through the left pedicle and [...] For questions regarding this report, please contact th e number below. Electronically signed by: Bobby Sullivan MD, [facility] [place] ([phone]), at 07/20/2019 1:20 PM Elmer Loya MD [...] made and a 13g a introducer needle (Wikipixel) was advanced through the right pedicle and [...] made an d a 13ga introducer needle (Wikipixel) was advanced through the left pedicle and [...] signed by: Bobby Sullivan MD, [facility] ([phone]), at 07/20/2019 1:20 PM Procedure Note Bobby [...] made and a 13g a introducer needle (Wikipixel) was advanced through the right pedicle and [...] made an d a 13ga introducer needle (Wikipixel) was advanced through the left pedicle and [...] signed by: Bobby Sullivan MD, [facility] ([phone]), at 07/20/2019 1:20 PM Elmer Loya MD IMG IR ORDERABLES Surgical Pathology Report (07/20/2019 10:45 AM EDT) Component Value Ref Test Analysis Performed At [facility] Range Method Time Signature Surgical [id number] ? Location: [address] [place] [address] Pathology CONCEPTION [place]UNCTION Report The signing pathologist has (i) examined [...] Jl Reynolds Verified: ??07/22/2019 ?Pathologist Performed at: ??-[facility] Dept. of [place]ology, [place], [place] DISCUSSION Deeper levels into the biopsy [...] Organization Address City/State/[place] [address] Specimen to Pathology (07/20/2019 8:41 AM EDT) Specimen Anatomical Collection Method Collection Time Receive d Time (Source) Location / / Volume Laterality AP Specimen 07/20/2019 8:41 AM 9 8:41 EDT AM EDT Narrative [facility] - 07/20/2019 8:41 AM EDT Specimen requisition ordered. ??Separate Pathology report to follow Elmer Loya MD PATHOLOGY/CYTOLOGY ORDERABLE S Performing Organization Address City/[facility]/[place] [address] documented in this encounter [...] mg documented in this encounter Care Teams Rag Cutting Machine Operator Relationship Specialty Start Date End Date Bobby Das MD PCP - General 10/02/[address] [place] [phone] documented as of this encounter
--- OUTSIDE RECORDS SUMMARY | 2022-08-05 09:02 | XMS_ITS | Encounter Summary ---
:1940 Author Organization [facility] [place] [address] Care Team Providers Name Role Phone Bobby Das MD Primary Care Provider Encounter Details Date Type Department Care Team Description 02/27/2021 Notes Only Radiology Matt Chisholm MD [facility] [place] [phone] DIAGNOSTIC RADIOLOGY [phone] [place], [place] [address] (Wo rk) Social History Tobacco [...] (TeleHealth) Gastroenterology Dixon Collins MD [facility] GASTROENTEROLOGY DEPT [place], [place] [address] (Wo rk) 09/05/2022 Appointment Cardiology Trinity Reid MD [facility] CARDIOLOGY [place], [place] [address] (Wo rk) 09/05/2022 Office Visit Cardiology Trinity Reid MD [facility] CARDIOLOGY [place], [place] [address] (Wo rk) 10/02/2022 Clinical Support Dermatology Thai Lynn MD [facility] DR EJNNY BILLY-DERMAT [place], [place] [address] (Wo rk) 10/02/2022 Procedure visit Dermatology Jace Lynn MD [facility] DR JENNY BILLY-DERMAT [place], [place] [address] (Wo rk) documented as of this encounter Visit Diagnoses Not on filedocumented in this encounter Care Teams Road Freight Brake Coupler Relationship Specialty Start Date End Date Bobby Das MD PCP - General 10/02/[address] [place] [address] [place] [address] documented as of this encounter
--- OUTSIDE RECORDS SUMMARY | 2022-08-05 09:02 | XMS_ITS | Encounter Summary ---
:1940 Author Organization [facility] [place] [address] Care Team Providers Name Role Phone Bobby Das MD Primary Care Provider Reason for Visit - Closed Specialty Diagnoses / Procedures Referred By Contact Refer red To Contact Procedures Bobby Das MD Film Library- Storage Only MR [address] [place] [phone] Referral ID Status Reason Start Date Expiration Date Visits Requ ested Visits Authorized [id number] Closed 02/23/2021 02/23/2022 1 1 Encounter Details Date Type Department Care Team Description 03/16/2020 Ancillary Procedure Radiology Library at Bobby Almaguer MD [address] [phone] (Rebekah rojas) Social History Tobacco Use Types [...] TH Visit (TeleHealth) Gastroenterology Dixon Collins MD [facility] GASTROENTEROLOGY DEPT [place], [place] [address] (Rebekah rk) 09/05/2022 Appointment Cardiology Trinity Reid MD [facility] ER CARDIOLOGY [place], [place] [address] (Wo rk) 09/05/2022 Office Visit Cardiology Trinity Reid MD [facility] DR WARNER [place], [place] [address] (Wo rk) 10/02/2022 Clinical Support Dermatology Thai Lynn MD [facility] DR JENNY BILLY-DERMAT [place], [place] [address] (Wo rk) 10/02/2022 Procedure visit Dermatology Jace Lynn MD [facility] DR JENNY BILLY-DERMAT [place], [place] [address] (Wo rk) documented as of [...] Laterality Volume Narrative JOSE ALEJANDRO MCKINNON - 02/23/2021 12:56 PM EDT This exam is auto-finalizing. It's purpo se is for storage only. Bobby Das MD IMG FILM LIBRARY ORDERABLES Performing Organization Address City/State/ZIP Code Phon e Number RAD [place], [place] documented in this encounter Visit Diagnoses Not on filedocumented in this encounter Care Teams Take Out Waitress Relationship Specialty Start Date End Date Bobby Das MD PCP - General 10/02/[address] [place] [address] [place], [place] [phone] documented as of this encounter
--- OUTSIDE RECORDS SUMMARY | 2022-08-05 09:02 | XMS_ITS | Encounter Summary ---
:1940 Author Organization [facility] [place] [address] Care Team Providers Name Role Phone Bobby Das MD Primary Care Provider Reason for Referral Diagnostic Test (Routine) - Closed Specialty Diagnoses / Procedures Referred By Contact Refer red To Contact Radiology Diagnoses Compression fracture of T9 vertebra, initial encounter Alphonso Esquivel, DO [facility] Rad Procedures IR Vertebroplasty Thoracic Single Level [facility] [place] [address] [place] [address] Referral ID Status Reason Start Date Expiration Date Visits V isits Requested Authorized [id number] Closed Specialty 10/13/2020 04/13/2022 1 1 Service Requested Encounter Details Date Type Department Care Team Description 10/13/2020 Orders Only Radiology at [facility] Alphonso Esquivel Compression fracture [facility] DO of T9 vertebra, [facility] [place] [phone] DIAGNOSTIC RADIOLOGY [place], [place] [address] Social History Tobacco Use Types [...] TH Visit (TeleHealth) Gastroenterology Dixon Collins MD [facility] GASTROENTEROLOGY DEPT [place], [place] [address] (Wo rk) 09/05/2022 Appointment Cardiology Trinity Reid MD [facility] CARDIOLOGY [place], [place] [address] (Wo rk) 09/05/2022 Office Visit Cardiology Trinity Reid MD [facility] CARDIOLOGY [place], [place] [address] (Wo rk) 10/02/2022 Clinical Support Dermatology Thai Lynn MD [facility] DR JENNY BILLY-DERMAT [place], [place] [address] (Wo rk) 10/02/2022 Procedure visit Dermatology Jace Lynn MD [facility] DR JENNY BILLY-DERMAT [facility] [place], [place] [address] (Wo rk) documented as of [...] and biopsy of T9. ? OPERATORS: Dr. ValverdeDr. Ryder Dr. M cMoran ANESTHESIA: Moderate sedation with intra venous midazolam [...] made and a 13g a introducer needle (FamilySkyline) was advanced through the right pedicle and t o the ??T9 vertebral body during an intermittent fluoroscopic guidance. The FamilySkyline biopsy cannula was advanced through the introducer [...] was made and a 13ga introducer needle (Propagenix) was advanced through the left pedicle and [...] below. ? Electronically signed by: Matt Valverde [facility] ([phone]), at 10/25/2020 11:02 AM Procedure Note Matt [...] of T9. ? OPERATORS: Dr. Valverde, Dr. RyderDr. Patricia díaz ANESTHESIA: Moderate sedation with intra venous midazolam [...] made and a 13g a introducer needle (FamilySkyline) was advanced through the right pedicle and t o the T9 vertebral body during an intermittent fluoroscopic guidance. The FamilySkyline biopsy cannula was advanced through the introducer [...] was made and a 13ga introducer needle (Propagenix) was advanced through the left pedicle and [...] Matt Valverde [facility] ([phone]), at 10/25/2020 11:02 AM Alphonso Esquivel DO IMG IR ORDERABLES Prothrombin Time (10/25/2020 6:35 AM EST) athologist Signature PT 10.8 9.4 - 12.5 [facility] LABORATORY INR 1.0 [facility] [...] Organization Address City/State/[place] [address] Platelet count (10/25/2020 6:35 AM EST) athologist Signature Platelets 192 145 - 357 [place] 555750(3)/[facility] LABORATORY Plat Immature 2.6 0.0 - 7.4 ILDA HAGEN % % [facility] LABORATORY Comment: Limitation of the Immature Platelet Frac tion (IPF)-May be less reliable when the platelet count is less than 60x469/u L due to statistical imprecision. The IPF [...] in a decreased state of production. References: [employer] The Clinical Value of the Immature Platelet Fraction (IPF) in Cell Recovery Document Number 10-1143 04/2011 [employer] The Role of the Imm ature [...] Organization Address City/State/ZIP Code Phon e Number [facility] [place] [address] documented in this encounter Visit Diagnoses Diagnosis Compression fracture of T9 vertebra, ini tial encounter Compression fracture of T9 vertebra, ini tial encounter documented in this encounter Care Teams Business Unit Director Relationship Specialty Start Date End Date Bobby Das MD PCP - General 10/02/[address] [place] [address] [place] [phone] documented as of this encounter
--- OUTSIDE RECORDS SUMMARY | 2022-08-05 09:02 | XMS_ITS | Encounter Summary ---
:1940 Author Organization [facility] [place] [address] Care Team Providers Name Role Phone Bobby Das MD Primary Care Provider Encounter Details Date Type Department Care Team Description 08/28/2020 Ancillary Procedure Radiology at [facility] Amy Grimaldo [address] [place] [address] [address] [phone] NEUROSURGERY-[facility] [place], [place] [address] Social History Tobacco Use Types [...] TH Visit (TeleHealth) Gastroenterology Dixon Collins MD [facility] GASTROENTEROLOGY DEPT [place], [place] [address] (Wo rk) 09/05/2022 Appointment Cardiology Trinity Reid MD [facility] CARDIOLOGY [place], [place] [address] (Wo rk) 09/05/2022 Office Visit Cardiology Trinity Reid MD [facility] CARDIOLOGY [place], [place] [address] (Wo rk) 10/02/2022 Clinical Support Dermatology Thai Lynn MD [facility] DR JENNY BILLY-DERMAT [place], [place] [address] (Wo rk) 10/02/2022 Procedure visit Dermatology Jace Lynn MD [facility] DR JENNY BILLY-DERMAT [place], [place] [address] (Wo rk) documented as of [...] / Laterality Volume Narrative INO - 09/14/2020 6:00 PM EST This exam is auto-finalizing. It's purpo se is for storage only. Amy Grimaldo MD IMG FILM LIBRARY ORDERABLES Performing Organization Address City/State/ZIP Code Phon e Number [place], [place] documented in this encounter Visit Diagnoses Not on filedocumented in this encounter Care Teams Electrical And Radio Aircraft Mechanic Relationship Specialty Start Date End Date Bobby Das MD PCP - General 10/02/[address] [place] [address] [place] [phone] documented as of this encounter
--- OUTSIDE RECORDS SUMMARY | 2022-08-05 09:02 | XMS_ITS | Encounter Summary ---
:1940 Author Organization [facility] [place] [address] Care Team Providers Name Role Phone Bobby Das MD Primary Care Provider Encounter Details Date Type Department Care Team Description 07/20/2019 Laboratory Lab 3L Ilda Gastrointestina l Appointment [facility] hemorrhag e, unspecified Hospital gastrointestinal [facility] [place] [phone] Social History Tobacco Use Types Packs/Day Years [...] MD [facility] DR GASTROENTEROLOGY DEPT [place], [place] [address] (Wo rk) 09/05/2022 Appointment Cardiology Trinity Reid MD [facility] ER CARDIOLOGY [place], [place] [address] (Rebekah rojas) 09/05/2022 Office Visit Cardiology Trinity Reid MD [facility] CARDIOLOGY [place], [place] [address] (Rebekah rojas) 10/02/2022 Clinical Support Dermatology Thai Lynn MD [facility] DR JENNY BILLY-DERMAT [place], [place] [address] (Wo rk) 10/02/2022 Procedure visit Dermatology Jace Lynn MD [facility] DR JENNY BILLY-DERMAT [place], [place] [address] (Wo rk) documented as of [...] WBC 6.0 4.0 - 9.5 ILDA XIAO x10(3)/[facility] LABORATORY RBC 4.50 (L) 4.58 - ILDA XIAO 5.54 [facility] x10(6)/[facility] LABORATORY Hemoglobin 14.8 13.7 - ILDA XIAO 16.5 gm/dL [facility] LABORATORY Hematocrit 43.9 40.5 - ILDA XIAO 48.5 % [facility] LABORATORY MCV 97.6 (H) 82.9 - ILDA XIAO 93.1 [facility] LABORATORY MCH 32.9 (H) 27.5 - ILDA XIAO 32.1 pg [facility] LABORATORY MCHC 33.7 32.0 - ILDA XIAO 35.7 gm/dL [facility] LABORATORY Platelets 164 145 - 357 [employer] x10(3)/[facility] LABORATORY RDWSD 49.3 (H) 36.0 - ILDA XIAO 45.0 [facility] LABORATORY RDWCV 13.6 11.4 - [employer] 13.8 % [facility] LABORATORY MPV 10.0 7.6 - 12.9 ILDA XIAO [facility] LABORATORY nRBC % Auto 0.0 % [facility] LABORATORY nRBC Abs Auto 0.000 0.000 - [facility] 0.000 [facility] x10(3)/[facility] LABORATORY Specimen Anatomical Collection Method Collection Time Receive d Time (Source) Location / / Volume Laterality Blood specimen 07/20/2019 8:18 AM 019 8:21 (specimen) EDT AM EDT Resulting Agency Comment Spec In Lab Bobby Marshall MD HEMATOLOGY ORDERABLES Performing Organization Address City/[facility]/ZIP Code Phon e Number [address] Prothrombin Time (07/20/2019 8:18 AM EDT) athologist Signature PT 11.3 9.4 - 12.5 [facility] LABORATORY INR 1.0 [facility] LABORATORY [...] Marshall MD HEMATOLOGY ORDERABLES Performing Organization Address City/[facility]/ZIP Code Phon e Number [place] [phone] HOSPITAL LAB[address]ORY [address] documented in this encounter Visit Diagnoses Diagnosis Gastrointestinal hemorrhage, unspecified gastrointestinal hemorrhage type documented in this encounter Care Teams Sap Functional Analyst Relationship Specialty Start Date End Date Bobby Das MD PCP - General 10/02/[address] [place] [address] [place] [phone] documented as of this encounter
--- OUTSIDE RECORDS SUMMARY | 2022-08-05 09:02 | XMS_ITS | Encounter Summary ---
:1940 Author Organization [facility] [place] [address] Care Team Providers Name Role Phone Bobby Dsa MD Primary Care Provider Encounter Details Date Type Department Care Team Description 09/22/2020 Telephone Pain and Spine Leon reid at [facility] [place] [address] Social History Tobacco Use Types Packs/Day Years [...] TH Visit (TeleHealth) Gastroenterology Dixon Collins MD [facility] GASTROENTEROLOGY DEPT [place], [place] [address] (Wo rk) 09/05/2022 Appointment Cardiology Trinity Reid MD [facility] CARDIOLOGY [place], [place] [address] (Wo rk) 09/05/2022 Office Visit Cardiology Trinity Reid MD [facility] CARDIOLOGY [place], [place] [address] (Wo rk) 10/02/2022 Clinical Support Dermatology Thai Lynn MD [facility] DR JENNY BILLY-DERMAT [place], [place] [address] (Wo rk) 10/02/2022 Procedure visit Dermatology Jace Lynn MD [facility] DR JENNY BILLY-DERMAT [place], [place] [address] (Wo rk) documented as of this encounter Visit Diagnoses Not on filedocumented in this encounter Care Teams Procedure Analyst Relationship Specialty Start Date End Date Bobby Das MD PCP - General 10/02/[address] [place] [address] [place] [phone] documented as of this encounter
--- OUTSIDE RECORDS SUMMARY | 2022-08-05 09:03 | XMS_ITS | Encounter Summary ---
:1940 Author Organization [facility] [place] [address] Care Team Providers Name Role Phone Bobby Das MD Primary Care Provider Encounter Details Date Type Department Care Team Description 12/20/2016 Telephone Pain Management at [facility] [place] [phone] Social History Tobacco Use Types Packs/Day [...] TH Visit (TeleHealth) Gastroenterology Dixon Collins MD [facility] GASTROENTEROLOGY DEPT [place], [place] [address] (Rebekah rojas) 09/05/2022 Appointment Cardiology Trinity Reid MD [facility] CARDIOLOGY [place], [place] [address] (Rebekah rojas) 09/05/2022 Office Visit Cardiology Trinity Reid MD [facility] DR WARNER [place], [place] [address] (Wo rk) 10/02/2022 Clinical Support Dermatology Thai Lynn MD [facility] DR JENNY BILLY-DERMAT [place], [place] [address] (Wo rk) 10/02/2022 Procedure visit Dermatology Jace Lynn MD [facility] DR JENNY BILLY-DERMAT [place], [place] [address] (Wo rk) documented as of this encounter Visit Diagnoses Not on filedocumented in this encounter Care Teams Cabinet Finisher Relationship Specialty Start Date End Date Bobby Das MD PCP - General 10/02/[address] [place] [address] [place] [phone] documented as of this encounter
--- OUTSIDE RECORDS SUMMARY | 2022-08-05 09:03 | XMS_ITS | Encounter Summary ---
:1940 Author Organization [facility] [place] [address] Care Team Providers Name Role Phone Bobby Das MD Primary Care Provider Reason for Visit Reason Onset Date Comments Pre Procedure Call 08/01/2015 Encounter Details Date Type Department Care Team Description 08/01/2015 Telephone Dermatology at [facility] Cassy Jacobson, Pre Procedure Call [address] [place] [phone] Social History Tobacco Use Types Packs/Day [...] Dixon Collins MD [facility] GASTROENTEROLOGY DEPT [place], [place] [address] (Rebekah rk) 09/05/2022 Appointment Cardiology Trinity Reid MD [facility] CARDIOLOGY [place], [place] [address] (Wo rk) 09/05/2022 Office Visit Cardiology Trinity Reid MD [facility] CARDIOLOGY [place], [place] [address] (Wo rk) 10/02/2022 Clinical Support Dermatology Thai Lynn MD [facility] DR JENNY BILLY-DERMAT [place], [place] [address] (Wo rk) 10/02/2022 Procedure visit Dermatology Jace Lynn MD [facility] DR JENNY BILLY-DERMAT [place], [place] [address] (Wo rk) documented as of this encounter Visit Diagnoses Not on filedocumented in this encounter Care Teams Scientific Photographer Relationship Specialty Start Date End Date Bobby Das MD PCP - General 10/02/[address] [place] [address] [place] [phone] documented as of this encounter
--- OUTSIDE RECORDS SUMMARY | 2022-08-05 09:03 | XMS_ITS | Encounter Summary ---
:1940 Author Organization [facility] [place] [address] Care Team Providers Name Role Phone Bobby Das MD Primary Care Provider Reason for Visit Reason Onset Date Comments Other 07/19/2011 Encounter Details Date Type Department Care Team Description 07/19/2011 Telephone Cardiology at [facility] Chet Nicole MD [facility] [place] [address] CARDIOLOGY DEPT. [phone] [place], [place] [address] (Wo rk) Social History Tobacco [...] [facility] GASTROENTEROLOGY DEPT [place], [place] [address] (Wo rk) 09/05/2022 Appointment Cardiology Triinty Reid MD [facility] CARDIOLOGY [place], [place] [address] (Wo rk) 09/05/2022 Office Visit Cardiology Trinity Reid MD [facility] CARDIOLOGY [place], [place] [address] (Wo rk) 10/02/2022 Clinical Support Dermatology Thai Lynn MD [facility] DR JENNY BILLY-DERMAT [place], [place] [address] (Wo rk) 10/02/2022 Procedure visit Dermatology Jace Lynn MD [facility] DR JENNY BILLY-DERMAT [place], [place] [address] (Wo rk) documented as of this encounter Visit Diagnoses Not on filedocumented in this encounter Care Teams Family Services Manager Relationship Specialty Start Date End Date Bobby Das MD PCP - General 10/02/[address] [place] [address] [place] [phone] documented as of this encounter
--- OUTSIDE RECORDS SUMMARY | 2022-08-05 09:03 | XMS_ITS | Encounter Summary ---
:1940 Author Organization [facility] [place] [address] Care Team Providers Name Role Phone Bobby Das MD Primary Care Provider Reason for Referral Diagnostic Test (Routine) - Specialty Diagnoses / Procedures Referred By Contact Refer red To Contact Radiology Diagnoses Chest pain, unspecified type Chronic abdominal pain Chano Rebolledo MD [facility] Rad Ct Scan Procedures CT Chest w Contrast CT Chest wo Contrast (Generic) [place] [address] [place] [address] Referral ID Status Reason Start Date Expiration Visits Visits Date Requested Authorized [id number] Specialty 12/13/2016 12/13/2017 1 1 Service Requested Consultation (Routine) - Closed Specialty Diagnoses / Procedures Referred By Contact Refer red To Contact Neurology Diagnoses Radiculopathy of cervical region Chano Rebolledo MD [facility] Neurology 3c [facility] [place] [address] [place] [address] Referral ID Status Reason Start Date Expiration Date Visits V isits Requested Authorized [id number] Closed Test Only 12/13/2016 12/13/2017 1 1 Diagnostic Test (Routine) - Closed Specialty Diagnoses / Procedures Referred By Contact Refer red To Contact Radiology Diagnoses Chest pain, unspecified type Chronic abdominal pain Chano Rebolledo MD [facility] Rad Ct Scan Procedures CT Abdomen & Pelvis w Contrast [facility] [place] [address] [place] [address] Referral ID Status Reason Start Date Expiration Date Visits V isits Requested Authorized [id number] Closed Specialty 12/13/2016 12/13/2017 1 1 Service Requested Reason for Visit Reason Comments Pain Management Neck Pain Bilateral Arm Pain burning across sternum and r ibs, both sides Consultation (Routine) - Closed Specialty Diagnoses / Procedures Referred By Contact Refer red To Contact Pain Management Diagnoses cervical radiculopathy Bobby Das MD [facility] [address] [place] [address] [address] [place], [place] [address] [address] [place] [address] Fax: Referral ID Status Reason Start Date Expiration Date Visits V isits Requested Authorized [id number] Closed Consult, 11/22/2016 11/22/2017 1 1 Test & Treat Encounter Details Date Type Department Care Team Description 12/13/2016 Office Visit Pain Management at [facility], Chest adrianna n, unspecified type; [place] Leonel Sullivan MD Chronic abdominal pain; [facility] [place] [place] Radiculop athy of cervical region [facility] [address] [place], [place]IC [address] [place] [address] [phone] Social History Tobacco Use Types Packs/Day Years [...] MD - 12/13/2016 1:00 PM EST [facility] [place] [address] Phone: PAIN MANAGEMENT NEW PATIENT / CONSULTATION NOTE DATE OF VISIT 12/13/2016 Patient Koko Zamora 1940 REFERRING PROVIDER Bobby Das MD [address] [place] [address] [place] [address] PRIMARY CARE PROVIDER Bobby Das MD CHIEF [...] Aspirin Other (See Comments) 06/28/2011 MEDICATIONS The [place] and [place] Prescription Monitoring Program were checked & no [...] restless FUNCTIONAL /SOCIAL Lives with: 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 Follow up: -Patient will be called after results are obtained. Koko Zamora had the opportunity to ask questions and indicated that all questions were answered to his satisfaction. Thank you for this referral, Bobby Das MD [address] [place] [address], [place] [address]. Chano Rebolledo MD Leonel Orozco MD - [...] (TeleHealth) Gastroenterology Dixon Collins MD [facility] GASTROENTEROLOGY DEPT [place], [place] [address] (Wo rk) 09/05/2022 Appointment Cardiology Trinity Reid MD [facility] CARDIOLOGY [place], [place] [address] (Wo rk) 09/05/2022 Office Visit Cardiology Trinity Reid MD [facility] CARDIOLOGY [place], [place] [address] (Wo rk) 10/02/2022 Clinical Support Dermatology Thai Lynn MD [facility] DR JENNY BILLY-DERMAT [place], [place] [address] (Wo rk) 10/02/2022 Procedure visit Dermatology Jace Lynn MD [facility] DR JENYN BILLY-DERMAT [place], [place] [address] (Wo rk) Scheduled Referrals Name Type Priority [...] findings, Sharmila quezada 12/17/2016 4:06 PM Leonel Oroczo MD IM CT ORDERABLES CT Abdomen & [...] site documented in this encounter Care Teams Intelligence Officer Relationship Specialty Start Date End Date Bobby Das MD PCP - General 11/23/[address] [place] [address] [place] [phone] documented as of this encounter
--- OUTSIDE RECORDS SUMMARY | 2022-08-05 09:03 | XMS_ITS | Encounter Summary ---
:1940 Author Organization [facility] [place] [address] Care Team Providers Name Role Phone Bobby Das MD Primary Care Provider Encounter Details Date Type Department Care Team Description 06/16/2019 Ancillary Procedure Radiology Library at Bobby Almaguer MD [address] [phone] (Wo rk) Social History Tobacco Use Types Packs/Day Years Used Date Current Some Day Smoker 1 50 Smokeless Tobacco: Never Used Sex Assigned at Date Recorded Not on file documented as of this encounter Plan of Treatment Upcoming Encounters Date Type Specialty Care Team Description 08/08/2022 TH Visit (TeleHealth) Gastroenterology Dixon Collins MD [facility] GASTROENTEROLOGY DEPT [place], [place] [address] (Wo rk) 09/05/2022 Appointment Cardiology Trinity Reid MD [facility] CARDIOLOGY [place], [place] 0375 (Wo rk) 09/05/2022 Office Visit Cardiology Trinity Reid MD [facility] CARDIOLOGY [place], [place] 0[address] (Wo rk) 10/02/2022 Clinical Support Dermatology Thai Lynn MD [facility] ER DR JENNY BILLY-DERMAT [place], [place] [address] (Wo rk) 10/02/2022 Procedure visit Dermatology Jace Lynn MD [facility] ER DR JENNY BILLY-DERMAT [place], [place] [address] (Wo rk) documented as of [...] Organization Address City/State/ZIP Code Phon e Number [place], [place] documented in this encounter Visit Diagnoses Not on filedocumented in this encounter Care Teams Transportation Broker Relationship Specialty Start Date End Date Bobby Das MD PCP - General 10/02/[address] [place] [address] [place] [phone] documented as of this encounter
--- OUTSIDE RECORDS SUMMARY | 2022-08-05 09:03 | XMS_ITS | Encounter Summary ---
:1940 Author Organization [facility] [place] [address] Care Team Providers Name Role Phone Bobby Das MD Primary Care Provider Reason for Visit Reason Comments Wound Check Encounter Details Date Type Department Care Team Description 10/25/2015 Clinical Support Dermatology at Christine Gonzalez MD Follow up [facility] [address] [facility] [place] [address] [place] [address] [phone] (Wo rk) Social History Tobacco Use Types Packs/Day Years Used Date Current Some Day Smoker 1 50 Smokeless Tobacco: Never Used Sex Assigned at Date Recorded Not on file documented as of this encounter Progress Notes eLo Solo MD - 10/25/2015 1:01 PM EST CC: Wound check HPI: Patient is a 75 y.o. male with history of basal cell carcinoma, right islam, s/p Mohs, repaired by transposition flap on who presents for wound check. Denies complications. States when he blinks he can feel the scar tissue. ROS: Otherwise well. No other skin complaints. Exam: General: No acute distress Skin: Limited examination of right islam shows a well-healed flap with hypertrophy at the edge. Assessment and Plan 1. Basal cell carcinoma, right islam, s/p Mohs, repaired by transposition flap Kenalog 10mg/mL injected intralesionally, total 0.03 mL. Discussed indication for this procedure andpotential side effects including ulceration and skin atrophy. Follow up as needed. I, Estefania Momin LPN, am documenting this encounter acting as a scribe for and in the presence of Dr. Solo. I performed the above scribed services and agree with the accuracy of the documentation in this encounter. Leo Solo MD documented in this encounter Plan of Treatment Upcoming Encounters Date Type Specialty Care Team Description 08/08/2022 TH Visit (TeleHealth) Gastroenterology Dixon Collins MD [facility] GASTROENTEROLOGY DEPT [place], [place] [address] (Wo rk) 09/05/2022 Appointment Cardiology Trinity Reid MD [facility] CARDIOLOGY [place], [place] [address] (Wo rk) 09/05/2022 Office Visit Cardiology Trinity Reid MD [facility] CARDIOLOGY [place], [place] [address] (Wo rk) 10/02/2022 Clinical Support Dermatology Thai Lynn MD [facility] DR JENNY BILLY-DERMAT [place], [place] [address] (Wo rk) 10/02/2022 Procedure visit Dermatology Jace Lynn MD [facility] DR JENNY BILLY-DERMAT [place], [place] [address] (Wo rk) documented as of this encounter Visit Diagnoses Diagnosis Follow up documented in this encounter Care Teams Videotape Recording Engineer Relationship Specialty Start Date End Date Bobby Das MD PCP - General 10/02/[address] [place] [address] [place] [address] documented as of this encounter
--- OUTSIDE RECORDS SUMMARY | 2022-08-05 09:03 | XMS_ITS | Encounter Summary ---
:1940 Author Organization [facility] [place] [address] Care Team Providers Name Role Phone Bobby Das MD Primary Care Provider Encounter Details Date Type Department Care Team Description 05/13/2018 Ancillary Procedure Radiology Library at Bobby Almaguer MD [address] [phone] (Wo rk) Social History Tobacco Use Types Packs/Day Years Used Date Current Some Day Smoker 1 50 Smokeless Tobacco: Never Used Sex Assigned at Date Recorded Not on file documented as of this encounter Plan of Treatment Upcoming Encounters Date Type Specialty Care Team Description 08/08/2022 TH Visit (TeleHealth) Gastroenterology Dixon Collins MD [facility] GASTROENTEROLOGY DEPT [place], [place] [address] (Wo rk) 09/05/2022 Appointment Cardiology Trinity Reid MD [facility] CARDIOLOGY [place], [place] 0375 (Wo rk) 09/05/2022 Office Visit Cardiology Trinity Reid MD [facility] CARDIOLOGY [place], [place] 0[address] (Wo rk) 10/02/2022 Clinical Support Dermatology Thai Lynn MD [facility] ER DR JENNY BILLY-DERMAT [place], [place] [address] (Wo rk) 10/02/2022 Procedure visit Dermatology Jace Lynn MD [facility] ER DR JENNY BILLY-DERMAT [place], [place] [address] (Wo rk) documented as of [...] Organization Address City/State/ZIP Code Phon e Number [place], [place] documented in this encounter Visit Diagnoses Not on filedocumented in this encounter Care Teams Hydraulic Operator Relationship Specialty Start Date End Date Bobby Das MD PCP - General 10/02/[address] [place] [address] [place] [phone] documented as of this encounter
--- OUTSIDE RECORDS SUMMARY | 2022-08-05 09:03 | XMS_ITS | Encounter Summary ---
:1940 Author Organization [facility] [place] [address] Care Team Providers Name Role Phone Bobby Das MD Primary Care Provider Reason for Visit Reason Comments Suture / Staple Removal Encounter Details Date Type Department Care Team Description 08/31/2015 Clinical Support Dermatology at [facility] Visit for suture [facility] Nicol Estrella MD removal [address] [facility] [address] [facility] [phone] RD-DERMATOLOGY [place] [address] Social History Tobacco Use Types Packs/Day Years Used Date Current Some Day Smoker 1 50 Smokeless Tobacco: Never Used Sex Assigned at Date Recorded Not on file documented as of this encounter Progress Notes Jeni Franco LPN - 08/31/2015 2:47 PM EDT HPI: Patient is a 74 y.o. male with history of basal cell carcinoma, right gnosticist, s/p Mohs repairedby transposition flap repair who is presenting for suture removal. Denies complications. Exam: General: No acute distress Skin: Limited examination of right gnosticist shows a well-healed flap. There is no erythema, dehiscence, ecchymosis, or drainage. Assessment and Plan 1. Basal cell carcinoma, right gnosticist, s/p Mohs repaired by transposition flap repair [...] MD [facility] GASTROENTEROLOGY DEPT [place], [place] [address] (Wo rk) 09/05/2022 Appointment Cardiology Trinity Reid MD [facility] CARDIOLOGY [place], [place] [address] (Wo rk) 09/05/2022 Office Visit Cardiology Trinity Reid MD [facility] CARDIOLOGY [place], [place] [address] (Wo rk) 10/02/2022 Clinical Support Dermatology Thai Lynn MD [facility] DR JENNY BILLY-DERMAT [place], [place] [address] (Wo rk) 10/02/2022 Procedure visit Dermatology aJce Lynn MD [facility] DR JENNY BILLY-DERMAT [place], [place] [address] (Wo rk) documented as of this encounter Visit Diagnoses Diagnosis Visit for suture removal Encounter for removal of sutures documented in this encounter Care Teams Citrix Engineer Relationship Specialty Start Date End Date Bobby Das MD PCP - General 10/02/[address] [place] [address] [place] [phone] documented as of this encounter
--- OUTSIDE RECORDS SUMMARY | 2022-08-05 09:03 | XMS_ITS | Encounter Summary ---
:1940 Author Organization [facility] [place] [address] Care Team Providers Name Role Phone Bobby Das MD Primary Care Provider Encounter Details Date Type Department Care Team Description 07/26/2015 External Results Medical Records Provider, [place] [address] Social History Tobacco Use Types Packs/Day Years Used Date Current Some Day Smoker 1 50 Smokeless Tobacco: Never Used Sex Assigned at Date Recorded Not on file documented as of this encounter Plan of Treatment Upcoming Encounters Date Type Specialty Care Team Description 08/08/2022 TH Visit (TeleHealth) Gastroenterology Dixon Collins MD [facility] GASTROENTEROLOGY DEPT [place], [place] [address] (Wo rk) 09/05/2022 Appointment Cardiology Trinity Reid MD [facility] DR WARNER [place], [place] [address] (Wo rk) 09/05/2022 Office Visit Cardiology Trinity Reid MD [facility] DR [address] [place], [place] [address] (Wo rk) 10/02/2022 Clinical Support Dermatology Thai Lynn MD [facility] DR JENNY BILLY-DERMAT [place], [place] [address] (Wo rk) 10/02/2022 Procedure visit Dermatology Jace Lynn MD [facility] DR JENNY BILLY-DERMAT [place], [place] [address] (Wo rk) documented as of [...] on filedocumented in this encounter Care Teams Him Clerk Relationship Specialty Start Date End Date Bobby Das MD PCP - General 10/02/[address] [place] [address] [place] [phone] documented as of this encounter
--- OUTSIDE RECORDS SUMMARY | 2022-08-05 09:03 | XMS_ITS | Encounter Summary ---
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 Chano Rebolledo MD [facility] Thoracic Surg [address] [place] [address] [place] [address] [place] [address] Phone: Fax: Referral ID Status Reason Start Date Expiration Date Visits V isits Requested Authorized [id number] Denied Consult, 12/18/2016 12/18/2017 1 0 Test & Treat Encounter Details Date Type Department Care Team Description 12/18/2016 Telephone Pain Management at Chano Freitas MD [facility] [place] [address] PAIN CLINIC [phone] [place], [place] [address] (Wo rk) Social History Tobacco Use Types Packs/Day Years Used Date Current Some Day Smoker 1 50 Smokeless Tobacco: Never Used Sex Assigned at Date Recorded Not on file documented as of this encounter Miscellaneous Notes Telephone Encounter - Chano Rebolledo MD - 12/18/2016 12:[address] chest/abdomen/pelvis 12-17-16: 1. Lingular pulmonary nodule measuring 6 mm, [...] (TeleHealth) Gastroenterology Dixon Collins MD [facility] GASTROENTEROLOGY DEPT [place], [place] [address] ([facility]) 09/05/2022 Appointment Cardiology Trinity Reid MD [facility] CARDIOLOGY [place], [place] [address] ([facility]) 09/05/2022 Office Visit Cardiology Trinity Reid MD [facility] CARDIOLOGY [place], [place] [address] ([facility]) 10/02/2022 Clinical Support Dermatology Thai Lynn MD [facility] DR JENNY BILLY-DERMAT [place], [place] [address] ([facility]) 10/02/2022 Procedure visit Dermatology Jace Lynn MD [facility] ER DR [address]-DERMAT [place], [place] [address] (Wo rk) Scheduled Referrals Name Type Priority Associated Diagnoses Order S chedule Referral to Outpatient Referral Routine Neoplasm of Ordered: Hematology and uncertain behavior 017 Oncology of respiratory organ documented as of this encounter Visit Diagnoses Diagnosis 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
--- OUTSIDE RECORDS SUMMARY | 2022-08-05 09:03 | XMS_ITS | Encounter Summary ---
:1940 Author Organization [facility] [place] [address] Care Team Providers Name Role Phone Bobby Das MD Primary Care Provider Reason for Referral Diagnostic Test (Routine) - Closed Specialty Diagnoses / Procedures Referred By Contact Refer red To Contact Radiology Diagnoses 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, sequela Closed compression fracture of L1 lumbar vertebra with delayed healing, subsequent encounter Malignant neoplasm of prostate Zbigniew Thompson PA [facility] Rad Procedures IR Vertebroplasty Lumbar Multiple Levels IR Vertebral [place] [address] [place] [address] Fax: Referral ID Status Reason Start Date Expiration Date Visits V isits Requested Authorized [id number] Closed Specialty 07/13/2019 07/12/2020 1 1 Service Requested iagnostic Test (Routine) - Closed Specialty Diagnoses / Procedures Referred By Contact Refer red To Contact Radiology Diagnoses Closed compression fracture of L1 lumbar vertebra with delayed healing, subsequent encounter Malignant neoplasm of prostate Zbigniew Thompson PA [facility] Rad Procedures [place] [address] [place] [address] Fax: Referral ID Status Reason Start Date Expiration Date Visits V isits Requested Authorized [id number] Closed Specialty 07/13/2019 07/12/2020 1 1 Service Requested Reason for Visit Reason Comments Back Pain Consultation (ANDREINA) - Closed Specialty Diagnoses / Procedures Referred By Contact Refer red To Contact [facility] Diagnoses Collapsed vertebra, not elsewhere classified, lumbar region, subsequent encounter for fracture with routine healing Bobby Das MD [facility] Pain And [facility] [address] [place], [place] [address] [address] [place] [address] Phone: Fax: Referral ID Status Reason Start Date Expiration Date Visits V isits Requested Authorized [id number] Closed Consult, 06/30/2019 06/29/2020 1 1 Test & Treat Connection Center Encounter Details Date Type Department Care Team Description 07/13/2019 Office Visit [facility] Zbigniew Thompson, Closed compression fracture of L1 lumbar vertebra with delayed healing, subsequent encounter; at [facility] Malignant neoplasm of prostate; [facility] Age -related 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, sequela [address] [place], [place] [address] [phone] Social History Tobacco Use Types Packs/Day Years [...] MD [facility] GASTROENTEROLOGY DEPT [place], [place] [address] (Wo rk) 09/05/2022 Appointment Cardiology Trinity Reid MD [facility] CARDIOLOGY [place], [place] [address] (Wo rk) 09/05/2022 Office Visit Cardiology Trinity Reid MD [facility] CARDIOLOGY [place], [place] [address] (Wo rk) 10/02/2022 Clinical Support Dermatology Thai Lynn MD [facility] DR JENNY BILLY-DERMAT [place], [place] [address] (Wo rk) 10/02/2022 Procedure visit Dermatology Jace Lynn MD [facility] DR JENNY BILLY-DERMAT [place], [place] [address] (Wo rk) documented as of [...] made and a 13g a introducer needle (NotesFirst) was advanced through the right pedicle and [...] made an d a 13ga introducer needle (NotesFirst) was advanced through the left pedicle and [...] made and a 13g a introducer needle (NotesFirst) was advanced through the right pedicle and [...] made an d a 13ga introducer needle (NotesFirst) was advanced through the left pedicle and [...] made and a 13g a introducer needle (NotesFirst) was advanced through the right pedicle and [...] made an d a 13ga introducer needle (NotesFirst) was advanced through the left pedicle and [...] made and a 13g a introducer needle (NotesFirst) was advanced through the right pedicle and [...] made an d a 13ga introducer needle (NotesFirst) was advanced through the left pedicle and [...] sequela documented in this encounter Care Teams Center Machine Set Up Operator Relationship Specialty Start Date End Date Bobby Das MD PCP - General 10/02/[address] [place] [address] [place] [address] documented as of this encounter
--- OUTSIDE RECORDS SUMMARY | 2022-08-05 09:03 | XMS_ITS | Encounter Summary ---
:1940 Author Organization [facility] [place] [address] Care Team Providers Name Role Phone Bobby Das MD Primary Care Provider Encounter Details Date Type Department Care Team Description 09/18/2018 Telephone Dermatology at [facility] Yolanda Fraser RN [address] [place] [address] Social History Tobacco Use Types Packs/Day [...] patient (i.e. spouse, children, [place] [facility] [place]idential)? Spouse Relevant travel history or future plans: [...] Collins MD [facility] GASTROENTEROLOGY DEPT [place], [place] [address] (Rebekah rojas) 09/05/2022 Appointment Cardiology Trinity Reid MD [facility] CARDIOLOGY [place], [place] [address] (Rebekah rojas) 09/05/2022 Office Visit Cardiology Trinity Reid MD [facility] CARDIOLOGY [place], [place] [address]375 (Wo rk) 10/02/2022 Clinical Support Dermatology Thai Lynn MD [facility] DR JENNY BILLY-DERMAT [place], [place] [address] (Wo rk) 10/02/2022 Procedure visit Dermatology Jace Lynn MD [facility] DR JENNY BILLY-DERMAT [place], [place] [address] (Wo rk) documented as of this encounter Visit Diagnoses Not on filedocumented in this encounter Care Teams Remelt Furnace Expediter Relationship Specialty Start Date End Date Bobby Das MD PCP - General 10/02/[address] [place] [address] [place] [phone] documented as of this encounter
--- OUTSIDE RECORDS SUMMARY | 2022-08-05 09:03 | XMS_ITS | Encounter Summary ---
:1940 Author Organization [facility] [place] [address] Care Team Providers Name Role Phone Bobby Das MD Primary Care Provider Encounter Details Date Type Department Care Team Description 07/13/2019 Orders Only Radiology Alan Brink [facility] MD Rosa hemorrhage, unspecified [facility] DR hemorrhage type (Primary [id number] RADIOLOGY DEPT Dx) [phone] [place], [place] [address] Social History Tobacco Use Types Packs/Day Years Used Date Current Some Day Smoker Cigarettes 1 50 Smokeless Tobacco: Never Used Sex Assigned at Date Recorded Not on file documented as of this encounter Progress Notes Alan Brink D - 07/13/2019 5:00 PM EDT Images from [...] file Gets together: Not on file Attends shinto service: Not on file Active member of [...] TH Visit (TeleHealth) Gastroenterology Dixon Collins MD [facility] GASTROENTEROLOGY DEPT [place], [place] [address] (Wo rk) 09/05/2022 Appointment Cardiology [place] Reid MD [facility] CARDIOLOGY [place], [place] [address] (Rebekah rojas) 09/05/2022 Office Visit Cardiology [place] MD [facility] CARDIOLOGY [place], [place] [address] (Wo rk) 10/02/2022 Clinical Support Dermatology Thai Lynn MD [facility] DR JENNY BILLY-DERMAT [place], [place] [address] (Wo rk) 10/02/2022 Procedure visit Dermatology Jace Lynn MD [facility] DR JENNY BILLY-DERMAT [place], [place] [address] (Wo [...] Organization Address City/State/[place] [address] (ABNORMAL) Hemogram (07/20/2019 8:18 AM EDT) Analysis Performed At Patho logist Time Signature WBC 6.0 4.0 - 9.5 [facility] x10(3)/[facility] LABORATORY RBC 4.50 (L) 4.58 - [facility] 5.54 [facility] x10(6)/[facility] LABORATORY Hemoglobin 14.8 13.7 - ILDA HAGEN 16.5 gm/dL [facility] LABORATORY Hematocrit 43.9 40.5 - ILDA XIAO 48.5 % [facility] LABORATORY MCV 97.6 (H) 82.9 - ILDA XIAO 93.1 [facility] LABORATORY MCH 32.9 (H) 27.5 - ILDA ONEILCOCK 32.1 pg [facility] LABORATORY MCHC 33.7 32.0 - ILDA XIAO 35.7 gm/dL [facility] LABORATORY Platelets 164 145 - 357 [facility] x10(3)/[facility] LABORATORY RDWSD 49.3 (H) 36.0 - ILDA XIAO 45.0 [facility] LABORATORY RDWCV 13.6 11.4 - [facility] 13.8 % [facility] LABORATORY MPV 10.0 7.6 - 12.9 [facility] LABORATORY nRBC % Auto 0.0 % [facility] LABORATORY nRBC Abs Auto 0.000 0.000 - [facility] 0.000 [facility] x10(3)/[facility] LABORATORY Specimen Anatomical Collection Method Collection Time Receive d Time (Source) Location / / Volume Laterality Blood specimen 07/20/2019 8:18 AM 019 8:21 (specimen) EDT AM EDT Resulting Agency Comment Spec In Lab Bobby Marshall MD HEMATOLOGY ORDERABLES Performing Organization Address City/State/[place] [address] documented in this encounter Visit Diagnoses Diagnosis Gastrointestinal hemorrhage, unspecified gastrointestinal hemorrhage type - Primary documented in this encounter Care Teams Practice Managers Relationship Specialty Start Date End Date Bobby Das MD PCP - General 10/02/[address] [place] [address] [place] [phone] documented as of this encounter
--- OUTSIDE RECORDS SUMMARY | 2022-08-05 09:03 | XMS_ITS | Encounter Summary ---
:1940 Author Organization [place] [address] Care Team Providers Name Role Phone Bobby Das MD Primary Care Provider Reason for Visit Reason Comments Skin Check Encounter Details Date Type Department Care Team Description 03/29/2014 Office Visit Dermatology at [facility], Kyle c ell carcinoma (Primary Dx); Nba CARCAMO Verruca vulgaris; [address] [place] (actinic keratosis) Vincent B DERMATOLOGY [place], [place] [phone] Social History Tobacco Use Types Packs/Day Years [...] sun over the years. He lives in [place], [place]. Physical examination reveals a pleasant, 73-year-old gentleman who has a pearly, 1-cm papule on the right lateral canthus, site A; and a pearly papule about 8 mm in diameter, site C, on the right church at the scalp line. At the central [...] BCCAs, right lateral canthus and right lateral church, sites A and C, respectively. a. After [...] TH Visit (TeleHealth) Gastroenterology Dixon Collins MD [facility] GASTROENTEROLOGY DEPT [place], [place] [address] (Wo rk) 09/05/2022 Appointment Cardiology [place] MD [facility] DR WARNER [place], [place] [address] (Wo rk) 09/05/2022 Office Visit Cardiology [place] MD [facility] DR WARNER [place], [place] [address] (Wo rk) 10/02/2022 Clinical Support Dermatology Thai Lynn MD [facility] DR JENNY BILLY-DERMAT [place], [place] [address] (Wo rk) 10/02/2022 Procedure visit Dermatology Jace Lynn MD [facility] DR JENNY BILLY-DERMAT [place], [place] [address] (Wo rk) documented as of this encounter Visit Diagnoses Diagnosis Basal cell carcinoma - Primary Basal cell carcinoma of skin, site unspe cified Verruca vulgaris Viral warts, unspecified [place] (actinic keratosis) Actinic keratosis documented in this encounter Care Teams Plant Equipment Engineer Relationship Specialty Start Date End Date Bobby Das MD PCP - General 10/02/[address] [place] [address] [place] [phone] documented as of this encounter
--- OUTSIDE RECORDS SUMMARY | 2022-08-05 09:03 | XMS_ITS | Encounter Summary ---
:1940 Author Organization [place] [address] Care Team Providers Name Role Phone Bobby Das MD Primary Care Provider Reason for Referral Diagnostic Test (Routine) - Specialty Diagnoses / Procedures Referred By Contact Refer red To Contact Radiology Diagnoses Chest pain, unspecified type Chronic abdominal pain Chano Rebolledo MD [facility] Rad Ct Scan Procedures CT Chest w Contrast CT Chest wo Contrast (Generic) [facility] [place] [address] [place] [address] Referral ID Status Reason Start Date Expiration Visits Visits Date Requested Authorized [id number] Specialty 12/13/2016 12/13/2017 1 1 Service Requested Diagnostic Test (Routine) - Closed Specialty Diagnoses / Procedures Referred By Contact Refer red To Contact Radiology Diagnoses Chest pain, unspecified type Chronic abdominal pain Chano Rebolledo MD [facility] Rad Ct Scan Procedures CT Abdomen & Pelvis w Contrast [facility] [place] [address] [place] [address] Referral ID Status Reason Start Date Expiration Date Visits V isits Requested Authorized [id number] Closed Specialty 12/13/2016 12/13/2017 1 1 Service Requested Reason for Visit Diagnostic Test (Routine) - Closed Specialty Diagnoses / Procedures Referred By Contact Refer red To Contact Radiology Diagnoses Chest pain, unspecified type Chronic abdominal pain Chano Rebolledo MD [facility] Rad Ct Scan Procedures CT Abdomen & Pelvis w Contrast [facility] [place] [address] [place] [address] Referral ID Status Reason Start Date Expiration Date Visits V isits Requested Authorized [id number] Closed Specialty 12/13/2016 12/13/2017 1 1 Service Requested Encounter Details Date Type Department Care Team Description 12/17/[address] Scan at [facility], Chest pain, unspecified type ; [facility] Leonel Sullivan MD Chronic abdominal pain [facility] [address] PAIN [facility] [phone] [place] [address] Social History Tobacco Use Types [...] TH Visit (TeleHealth) Gastroenterology Dixon Collins MD [facility] GASTROENTEROLOGY DEPT [place], [place] [address] (Wo rk) 09/05/2022 Appointment Cardiology [place] MD [facility] CARDIOLOGY [place], [place] [address] (Wo rk) 09/05/2022 Office Visit Cardiology [place] MD [facility] ER DR WARNER [place], [place] [address] (Wo rk) 10/02/2022 Clinical Support Dermatology Thai Lynn MD [facility] DR JENNY BILLY-DERMAT [place], [place] [address] (Wo rk) 10/02/2022 Procedure visit Dermatology Jace Lynn MD [facility] DR JENNY BILLY-DERMAT [place], [place] [address] (Wo rk) documented as of [...] [place] 12/17/2016 4:06 PM Leonel Orozco MD [facility] CT ORDERABLES SCAN DOC: CT SCAN (09/09/2016 [...] [address] documented in this encounter Care Teams Braddisher Relationship Specialty Start Date End Date Bobby Das MD PCP - General 10/02/[address] [place] [address] [place] [phone] documented as of this encounter
--- OUTSIDE RECORDS SUMMARY | 2022-08-05 09:03 | XMS_ITS | Encounter Summary ---
:1940 Author Organization [facility] [place] [address] Care Team Providers Name Role Phone Bobby Das MD Primary Care Provider Reason for Visit Reason Comments Shortness of Breath Encounter Details Date Type Department Care Team Description 06/28/2011 Office Visit Cardiology at [facility] Chet Nicole SOB (shortness of breath) (P rimary Dx); [facility] GIB (gastrointestinal bleeding); [facility] MVP (mitral valve prolapse) [place] [address] CARDIOLOGY DEPT. [phone] [place], [place] [address] Social History Tobacco Use Types [...] Giordano MD - 06/28/2011 4:15 PM EDT [facility] Cholesterol and Triglycerides Tests: About [...] 60 mg/dl is considered ideal. ?? Total ecnlsmgxzhs-kz-FTJ ratio: A ratio of 5:1 or lower is recommended. ?? LDL cholesterol: Between 100-129 mg/dL is recommended. Lower than 100 mg/dL is considered ideal. ?? VLDL cholesterol: 30 mg/dL or less is recommended. ?? Triglycerides: Lower than 150 mg/dL is recommended. Where can you learn more? Visit our health information library at [email or web address]. You can also view health information on [employer], your personal patient account. Log in or sign up today. Enter V788 in the search box to learn more about Cholesterol and Triglycerides Tests: About These Tests. ?? [id number] [employer]. Care instructions adapted under license by [facility]. This care instruction is for use with your licensed healthcare professional. If you have questionsabout a medical condition or this instruction, always ask your healthcare professional. [employer] disclaims any warranty or liability for your [...] valve prolapse) s/p repair Surgery done at [facility] in 2000 ??? Hypertriglyceridemia ??? Adhesive capsulitis of L shoulder ??? Alcohol use Medications: [place]-3 Fatty Acids-Vitamin E (FISH OIL) 1,000 mg [...] for alcoholic CM, and written information from uptodate given to patient on this topic. We [...] TH Visit (TeleHealth) Gastroenterology Dixon Collins MD [facility] GASTROENTEROLOGY DEPT [place], [place] [address] (Wo rk) 09/05/2022 Appointment Cardiology [place] MD [facility] CARDIOLOGY [place], [place] [address] (Wo rk) 09/05/2022 Office Visit Cardiology [place] MD [facility] CARDIOLOGY [place], [place] [address] (Wo rk) 10/02/2022 Clinical Support Dermatology Thai Lynn MD [facility] DR JENNY BILLY-DERMAT [place], [place] [address] (Wo rk) 10/02/2022 Procedure visit Dermatology Jace Lynn MD [facility] DR JENNY BILLY-DERMAT [place], [place] [address] (Wo rk) documented as of this encounter Procedures Procedure Name Priority Date/Time Associated Diagnosis Comme nts EKG 12-LEAD Routine 06/28/2011 2:59 PM SOB (shortness of Resu lts for this EDT breath) procedure are i n the results section . documented in this encounter Results EKG 12 Lead (06/28/2011 2:59 PM EDT) [facility] Method Time Signature Ventricular rate 70 BPM MUSE SYSTEM Atrial Rate 70 BPM MUSE SYSTEM P-R Interval 182 ms MUSE SYSTEM QRS Duration 106 ms MUSE SYSTEM Q-T Interval 406 ms MUSE SYSTEM QTC Calculated 438 ms MUSE SYSTEM (Bezet) Calculated P [place] 60 degrees MUSE SYSTEM Calculated R [place] -51 degrees MUSE SYSTEM Calculated T [place] 32 degrees MUSE SYSTEM INTERPRETATION Normal sinus [...] disorders documented in this encounter Care Teams Power Hammer Operator Relationship Specialty Start Date End Date Bobby Das MD PCP - General 10/02/[address] [place] [address] [place] [phone] documented as of this encounter
--- OUTSIDE RECORDS SUMMARY | 2022-08-05 09:03 | XMS_ITS | Encounter Summary ---
:1940 Author Organization [facility] [place] [address] Care Team Providers Name Role Phone Bobby Das MD Primary Care Provider Reason for Visit Reason Comments Follow-up Encounter Details Date Type Department Care Team Description 05/31/2014 Office Visit Dermatology at [facility], History of basal cell Nba CARCAMO carcinoma (Primary [address] Dx) [facility] B DERMATOLOGY [place], [place] [phone] Social History Tobacco Use Types Packs/Day Years Used Date Current Some Day Smoker 1 50 Smokeless Tobacco: Never Used Sex Assigned at Date Recorded Not on file documented as of this encounter Patient Instructions Patient InstructionsSupriya Louis LPN - 05/31/2014 1:34 PM EDT Images from the original note were not included. [facility] Actinic Keratosis: After Your Visit Your [...] more? Visit our health information library at [email or web address] You can also view health information on [employer], your personal patient account. Log in or sign up today. Enter L364 in the search box to learn more about Actinic Keratosis: After Your Visit. ?? [id number] [employer]. Care instructions adapted under license by [facility]. This care instruction is for use with your licensed healthcare professional. If you have questionsabout a medical condition or this instruction, always ask your healthcare professional. [employer] disclaims any warranty or liability for your use of this information. Content Version: [id number]; Last Revised: December 22, 2012 documented in this encounter Progress Notes [facility] MD - 05/31/2014 2:08 PM EDT Problem: Follow up for repeat skin checkup. Shadi follows up after last being seen in March. At that time, I removed using shave C and D a BCCA from the right lateral canthus and a BCCA from the right lateral holiness. I also treated a verruca vulgaris on [...] [facility] [place], [place] [address] (Rebekah rojas) 09/05/2022 Appointment Cardiology [place] MD [facility] CARDIOLOGY [place], [place] [address] (Rebekah rojas) 09/05/2022 Office Visit Cardiology [place] MD [facility] CARDIOLOGY [place], [place] [address] (Rebekah rojas) 10/02/2022 Clinical Support Dermatology Thai Lynn MD [facility] ER DR JENNY BILLY-DERMAT [place], [place] [address] (Wo rk) 10/02/2022 Procedure visit Dermatology Jace Lynn MD [facility] DR JENNY BILLY-DERMAT [place], [place] [address] (Wo rk) documented as of this encounter Visit Diagnoses Diagnosis History of basal cell carcinoma - Primar y Personal history of other malignant neop lasm of skin documented in this encounter Care Teams Welfare Analyst Relationship Specialty Start Date End Date Bobby Das MD PCP - General 10/02/[address] [place] [address] [place] [phone] documented as of this encounter
--- OUTSIDE RECORDS SUMMARY | 2022-08-05 09:03 | XMS_ITS | Encounter Summary ---
:1940 Author Organization [facility] [place] [address] Care Team Providers Name Role Phone Bobby Das MD Primary Care Provider Encounter Details Date Type Department Care Team Description 06/26/2018 Ancillary Procedure Radiology Library at Bobby Almaguer MD [address] [phone] (Wo rk) Social History Tobacco Use Types Packs/Day Years Used Date Current Some Day Smoker 1 50 Smokeless Tobacco: Never Used Sex Assigned at Date Recorded Not on file documented as of this encounter Plan of Treatment Upcoming Encounters Date Type Specialty Care Team Description 08/08/2022 TH Visit (TeleHealth) Gastroenterology Dixon Collins MD [facility] GASTROENTEROLOGY DEPT [place], [place] [address] (Wo rk) 09/05/2022 Appointment Cardiology [place] MD [facility] CARDIOLOGY [place], [place] [address] (Wo rk) 09/05/2022 Office Visit Cardiology [place] MD [facility] CARDIOLOGY [place], [place] [address] (Wo rk) 10/02/2022 Clinical Support Dermatology Thai Lynn MD [facility] ER DR JENNY BILLY-DERMAT [place], [place] [address] (Wo rk) 10/02/2022 Procedure visit Dermatology Jace Lynn MD [facility] ER DR JENNY BILLY-DERMAT [place], [place] [address] (Wo rk) documented as of [...] / Laterality Volume Narrative INO - 06/29/2019 9:46 PM EDT This exam is auto-finalizing. It's purpo se is for storage only. Bobby Das MD IMG FILM LIBRARY ORDERABLES Performing Organization Address City/State/ZIP Code Phon e Number [place], [place] documented in this encounter Visit Diagnoses Not on filedocumented in this encounter Care Teams Underground Distribution Engineer Relationship Specialty Start Date End Date Bobby Das MD PCP - General 10/02/[address] [place] [address] [place] [phone] documented as of this encounter
--- OUTSIDE RECORDS SUMMARY | 2022-08-05 09:03 | XMS_ITS | Encounter Summary ---
:1940 Author Organization [facility] [place] [address] Care Team Providers Name Role Phone Bobby Das MD Primary Care Provider Encounter Details Date Type Department Care Team Description 08/25/2015 Telephone Dermatology at [facility] Gloria Ferrell MD [address] [facility] [place] [address] [facility]-DERMAT[facility]Y [phone] [place], [place] [address] (Wo rk) Social History Tobacco [...] [facility] GASTROENTEROLOGY DEPT [place], [place] [address] (Wo rk) 09/05/2022 Appointment Cardiology [place] MD [facility] CARDIOLOGY [place], [place] [address] (Wo rk) 09/05/2022 Office Visit Cardiology [place] MD [facility] CARDIOLOGY [place], [place] [address] (Wo rk) 10/02/2022 Clinical Support Dermatology Thai Lynn MD [facility] DR JENNY BILLY-DERMAT [place], [place] [address] (Wo rk) 10/02/2022 Procedure visit Dermatology Jace Lynn MD [facility] DR JENNY BILLY-DERMAT [place], [place] [address] (Wo rk) documented as of this encounter Visit Diagnoses Not on filedocumented in this encounter Care Teams Wet Process Miller Head Assistant Relationship Specialty Start Date End Date Bobby Das MD PCP - General 10/02/[address] [place] [address] [place] [phone] documented as of this encounter
--- OUTSIDE RECORDS SUMMARY | 2022-08-05 09:03 | XMS_ITS | Encounter Summary ---
:1940 Author Organization [facility] [place] [address] Care Team Providers Name Role Phone Bobby Das MD Primary Care Provider Reason for Visit Reason Comments Shortness of Breath Encounter Details Date Type Department Care Team Description 09/17/2011 Office Visit [facility] Torrey Giang SOB (shortness of [address] Mendoza MD breath) (Primary Dx) [facility] [phone] CARDIOLOGY DEPT. [place], [place] [address] Social History Tobacco Use Types [...] MD [facility] GASTROENTEROLOGY DEPT [place], [place] [address] (Wo rk) 09/05/2022 Appointment Cardiology [place] MD [facility] CARDIOLOGY [place], [place] [address] (Wo rk) 09/05/2022 Office Visit Cardiology [place] MD [facility] CARDIOLOGY [place], [place] [address] (Wo rk) 10/02/2022 Clinical Support Dermatology Thai Lynn MD [facility] DR JENNY BILLY-DERMAT [place], [place] [address] (Wo rk) 10/02/2022 Procedure visit Dermatology Jace Lynn MD [facility] DR JENNY BILLY-DERMAT [place], [place] [address] (Wo rk) documented as of [...] breath documented in this encounter Care Teams Director Of Veterans Affairs Relationship Specialty Start Date End Date Bobby Das MD PCP - General 10/02/[address] [place] [address] [place] [phone] documented as of this encounter
--- OUTSIDE RECORDS SUMMARY | 2022-08-05 09:03 | XMS_ITS | Encounter Summary ---
:1940 Author Organization [place] [address] Care Team Providers Name Role Phone Bobby Das MD Primary Care Provider Reason for Visit Reason Comments Basal Cell Carcinoma Encounter Details Date Type Department Care Team Description 08/24/2015 Procedure visit Dermatology at [facility] Leo Solo BCC (basal cell Road MD Delores carcinoma of skin) [address] [facility] [address] [facility] [phone] [place] [address] Social History Tobacco Use Types Packs/Day Years [...] documented in this encounter Patient Instructions Patient InstructionsDuEtta martinez LPN - 08/24/2015 3:23 PM EDT General [...] when the wound is well cared for. Bowles drainage or slight yellow film on your [...] the hospital number and ask for the Ton Container Filler recreation worker. Wound Care for Sutured Wounds You should [...] the hospital number and ask for the Ton Container Filler recreation worker. documented in this encounter Progress Notes Leo Solo MD - 08/24/2015 3:25 PM EDT Operative Report Patient name: Koko Zamora : 1940 Date: 08/24/2015 Staff Surgeon: Leo Solo MD, PhD Industrial Methods Consultant I: Cassy Jacobson, Yolanda Verdin, Etta Burciaga, Gloria Culver MD Communications Advisor: Kourtney Cabrera Pre-operative diagnosis: Basal cell carcinoma Post-operative diagnosis: Basal cell carcinoma Location: Right pentecostal Procedure: Mohs micrographic surgery Indication for Mohs micrographic surgery: Critical anatomic location Stages: 2 Final defect size: 3.6 x 2.0 cm Stage I The nature and purpose of the procedure, associated risks, possible consequences and complications,and alternative forms of treatment were explained in detail. Informed consent and permission to takephotographs were obtained. The site was confirmed with the patient/authorized service liaison representative/referring physician and a pre-operative time-out was [...] 08/24/2015 Staff Surgeon: Leo Solo MD, PhD Industrial Methods Consultant I: Yolanda Rivera, Estefania Welch Clinical Diagnosis: 3.6 x 2.0 cm surgical defect secondary to Mohs microscopically controlled excision of basal cell carcinoma Location: Right pentecostal Procedure: Transposition flap repair Due to the [...] TH Visit (TeleHealth) Gastroenterology Dixon Collins MD [facility] GASTROENTEROLOGY DEPT [place], [place] [address] ([facility]) 09/05/2022 Appointment Cardiology Trinity Reid MD [facility] CARDIOLOGY [place], [place] [address] ([facility]) 09/05/2022 Office Visit Cardiology Trinity Reid MD [facility] CARDIOLOGY [place], [place] [address] ([facility]) 10/02/2022 Clinical Support Dermatology Thai Lynn MD [facility] DR JENNY BILLY-DERMAT [place]LOGY [place], [place] [address] (Wo rk) 10/02/2022 Procedure visit Dermatology Jace Lynn MD [facility] DR JENNY BILLY-DERMAT [place], [place] [address] (Wo rk) documented as of this encounter Visit Diagnoses Diagnosis BCC (basal cell carcinoma of skin) Basal cell carcinoma of skin, site unspe cified documented in this encounter Care Teams Four Corner Stayer Machine Operator Relationship Specialty Start Date End Date Bobby Das MD PCP - General 10/02/[address] [place] [address] [place] [phone] documented as of this encounter
--- OUTSIDE RECORDS SUMMARY | 2022-08-05 09:03 | XMS_ITS | Encounter Summary ---
:1940 Author Organization [facility] [place] [address] Care Team Providers Name Role Phone Bobby Das MD Primary Care Provider Reason for Visit Reason Comments Shortness of Breath Encounter Details Date Type Department Care Team Description 12/24/2011 Office Visit [facility] Torrey Giang SOB (shortness of [address] Mendoza MD breath) (Primary Dx) [facility] [phone] CARDIOLOGY DEPT. [place], [place] [address] Social History Tobacco Use Types [...] TH Visit (TeleHealth) Gastroenterology Dixon Collins MD [facility] DR GASTROENTEROLOGY DEPT [place], [place] [address] (Wo rk) 09/05/2022 Appointment Cardiology Trinity Reid MD [facility] CARDIOLOGY [place], [place] [address] (Wo rk) 09/05/2022 Office Visit Cardiology Trinity Reid MD [facility] CARDIOLOGY [place], [place] [address] (Wo rk) 10/02/2022 Clinical Support Dermatology Thai Lynn MD [facility] DR JENNY BILLY-DERMAT [place], [place] [address] (Wo rk) 10/02/2022 Procedure visit Dermatology Jace Lynn MD [facility] DR JENNY BILLY-DERMAT [place], [place] [address] (Wo rk) documented as of this encounter Visit Diagnoses Diagnosis SOB (shortness of breath) - Primary Shortness of breath documented in this encounter Care Teams Facility Manager Histology Relationship Specialty Start Date End Date Bobby Das MD PCP - General 10/02/[address] [place] [address] [place] [phone] documented as of this encounter
--- OUTSIDE RECORDS SUMMARY | 2022-08-05 09:03 | XMS_ITS | Encounter Summary ---
:1940 Author Organization [facility] [place] [address] Care Team Providers Name Role Phone Bobby Das MD Primary Care Provider Reason for Visit Reason Comments Basal Cell Carcinoma Encounter Details Date Type Department Care Team Description 08/08/2015 [facility] (basal cell Road MD carcinoma of skin) [address] [place] [address] [address] [phone] [facility] [place] [place] [address] Social History Tobacco Use Types [...] Our facility does not offer a guest [employer] network at this time. We also recommend [...] specified we require that you have a charter and tour bus driver, as surgery can be stressful and tiring. If you are being transported from a long term or other similar facility, we request that someone stay with you during this appointment. We are located in the [facility] at [place], [place]. Please refer to the [facility] website for detailed driving directions ([email or web address]). When you arrive, please park in the upper parking lot. When you enter the building, go to the third floor, the receptionist scheduler area is located on the left (follow [...] If this fails, contact our office at [phone] (after 5PM please call [phone] and ask for the [place] Rafting Guide nursing education specialist). Avoid bending over, heavy lifting (no greater [...] are taking. Our office phone number is [phone]. documented in this encounter Progress Notes Leo Solo MD - 08/08/2015 1:50 PM EDT MOHS SURGICAL CONSULT Chief Complaint: Basal cell carcinoma History of Present Illness: Referring Physician: Dr. Zheng, [facility] (07/03/15) Tumor type: BCC Location of Skin Cancer: Right yazdanism Duration of Presence: 1 year Previous Treatment: [...] acute distress. Skin: Limited examination of right yazdanism reveals a 5 mm erythematous papule. Assessment and Plan 1. BCC, right yazdanism Reviewed treament options including wide local excision, [...] MD [facility] GASTROENTEROLOGY DEPT [place], [place] [address] (Wo rk) 09/05/2022 Appointment Cardiology Trinity Reid MD [facility] CARDIOLOGY [place], [place] [address] (Wo rk) 09/05/2022 Office Visit Cardiology Trinity Reid MD [facility] CARDIOLOGY [place], [place] [address] (Wo rk) 10/02/2022 Clinical Support Dermatology Thai Lynn MD [facility] DR JENNY BILLY-DERMAT [place], [place] [address] (Wo rk) 10/02/2022 Procedure visit Dermatology Jace Lynn MD [facility] DR JENNY PRUETTDERMAT [place], [place] [address] (Wo rk) documented as of this encounter Visit Diagnoses Diagnosis BCC (basal cell carcinoma of skin) Basal cell carcinoma of skin, site unspe cified documented in this encounter Care Teams Clinical Medical Assistant Relationship Specialty Start Date End Date Bobby Das MD PCP - General 10/02/[address] [place] [address] [place] [address] documented as of this encounter
--- OUTSIDE RECORDS SUMMARY | 2022-08-05 09:03 | XMS_ITS | Encounter Summary ---
:1940 Author Organization [place] [address] Care Team Providers Name Role Phone Bobby Das MD Primary Care Provider Encounter Details Date Type Department Care Team Description 12/16/2016 Telephone Pain Management at Neg[place], [place] [address] Social History Tobacco Use Types Packs/Day [...] [facility] DR GASTROENTEROLOGY DEPT [place], [place] [address] (Wo rk) 09/05/2022 Appointment Cardiology Trinity Reid MD [facility] CARDIOLOGY [place], [place] [address] (Wo rk) 09/05/2022 Office Visit Cardiology Trinity Reid MD [facility] CARDIOLOGY [place], [place] [address] (Wo rk) 10/02/2022 Clinical Support Dermatology Thai Lynn MD [facility] DR JENNY BILLY-DERMAT [place], [place] [address] (Wo rk) 10/02/2022 Procedure visit Dermatology Jace Lynn MD [facility] DR JENNY BILLY-DERMAT [place], [place] [address] (Wo rk) documented as of this encounter Visit Diagnoses Not on filedocumented in this encounter Care Teams Zipper Cutter Relationship Specialty Start Date End Date Bobby Das MD PCP - General 10/02/[address] [place] [address] [place] [phone] documented as of this encounter
--- OUTSIDE RECORDS SUMMARY | 2022-08-05 09:03 | XMS_ITS | Encounter Summary ---
:1940 Author Organization [facility] [place] [address] Care Team Providers Name Role Phone Bobby Das MD Primary Care Provider Reason for Visit Reason Comments Basal Cell Carcinoma Consultation (Routine) - Closed Specialty Diagnoses / Procedures Referred By Contact Refer red To Contact Dermatology Diagnoses REQUESTING MOHS PROCEDURE RIGHT EYEBROW FOR LESION REMOVED BUT ADDITIONAL TISSUE REMAINS Bobby Das MD Vidal, Nahid Y, MD [address] [place] [address] [place] [address] [place] [address] Fax: Referral ID Status Reason Start Date Expiration Date Visits V isits Requested Authorized [id number] Closed Consult, 06/24/2018 06/24/2019 1 1 [facility] Encounter Details Date Type Department Care Team Description 09/23/2018 [facility] Basal cell carcinoma Nicol CARCAMO (BCC) of eyebrow [address] [facility] [address] [place] [address] [phone] Social History Tobacco Use Types Packs/Day Years [...] documented in this encounter Patient Instructions Patient InstructionsIndira Cassy LockhartGWEN - 09/23/2018 10:00 AM EST Your staff surgeon today was Alvaro Llanos MD. Your wound(s) was repaired by [id number] stitches called a primary repair. You do [...] until your sutures are removed. 5. Some precision lens technician may need to be delayed or delegated [...] as often as is recommended by your medart operator, for new skin cancers. This is [...] it. If after hours, please call the roll over press operator or [phone] and ask for the medart operator on-call. If you have any non-urgent questions or concerns, please feel free to call my office or contact me through our patient portal, [employer], at [email or web address] How to contact us during business hours Dermatology at [facility]: Mohs scheduling or Mohs follow-up appointments: [phone] documented in this encounter Progress Notes Alvaro [...] Who lives with patient (i.e. spouse, children, halfway/mcc)? Spouse Relevant travel history or future plans: [...] follow up with his or her referring medart operator or other skin provider. Summary of [...] Date: 09/23/2018 Staff Surgeon: Alvaro Llanos MD Nursing/Student Services Representative(s): Assistants: Cassy Jacobson LPN, Jolene Pretty RN, Yolanda Fraser LPN, Savanah Licea CMA Chief Lock Operator (s): Cristina Cisneros Amanda Isenor Pre-operative diagnosis: [...] The site was confirmed with the patient/authorized territory representative/referring physician and/or a photograph form time [...] Right eyebrow Indication: repair of wound for mandaen of function/anatomy Final Defect size: 1.5 x [...] [facility] DR GASTROENTEROLOGY DEPT [place], [place] [address] (Wo rk) 09/05/2022 Appointment Cardiology Trinity Reid MD [facility] CARDIOLOGY [place], [place] [address] (Wo rk) 09/05/2022 Office Visit Cardiology Trinity Reid MD [facility] CARDIOLOGY [place], [place] [address] (Wo rk) 10/02/2022 Clinical Support Dermatology Thai Lynn MD [facility] DR JENNY BILLY-DERMAT [place], [place] [address] (Wo rk) 10/02/2022 Procedure visit Dermatology Jace Lynn MD [facility] DR JENNY BILLY-DERMAT [place], [place] [address] (Wo rk) documented as of this encounter Visit Diagnoses Diagnosis Basal cell carcinoma (BCC) of eyebrow documented in this encounter Care Teams Base Filler Relationship Specialty Start Date End Date Bobby Das MD PCP - General 10/02/[address] [place] [address] [place] [phone] documented as of this encounter
--- OUTSIDE RECORDS SUMMARY | 2022-08-05 09:03 | XMS_ITS | Encounter Summary ---
:1940 Author Organization [facility] [place] [address] Care Team Providers Name Role Phone Bobby Das MD Primary Care Provider Encounter Details Date Type Department Care Team Description 12/13/2016 Telephone Pain Management [place] [address] Social History Tobacco Use Types Packs/Day [...] MD [facility] GASTROENTEROLOGY DEPT [place], [place] [address] (Wo rk) 09/05/2022 Appointment Cardiology Trinity Reid MD [facility] DR WARN[place], [place] [address] (Wo rk) 09/05/2022 Office Visit Cardiology Trinity Reid MD [facility] DR [place], [place] [address] (Wo rk) 10/02/2022 Clinical Support Dermatology Thai Lynn MD [facility] DR JENNY BILLY-DERMAT [place], [place] [address] (Wo rk) 10/02/2022 Procedure visit Dermatology Jace Lynn MD [facility] DR JENNY BILLY-DERMAT [place], [place] [address] (Wo rk) documented as of this encounter Visit Diagnoses Not on filedocumented in this encounter Care Teams Gore Inserter Relationship Specialty Start Date End Date Bobby Das MD PCP - General 10/02/[address] [place] [address] [place] [phone] documented as of this encounter
--- OUTSIDE RECORDS SUMMARY | 2022-08-05 09:09 | XMS_ITS | Encounter Summary ---
:1940 Author Organization [facility] Address [address] [place] [address] Care Team Providers Name Role Phone Bobby Das MD Primary Care Provider Reason for Visit Reason Onset Date Comments Cancer 02/16/2018 Encounter Details Date Type Department Care Team Description 02/16/2018 Orders Only [facility] Isela Law Maligna nt neoplasm of prostate (HCC-CMS) (Primary Dx); Radiation Oncology - RN Andvamshi n deprivation therapy [address] [address] Social History Tobacco Use Types Packs/Day Years [...] g documented in this encounter Care Teams Mother Helper Relationship Specialty Start Date End Date Bobby Dsa MD PCP - General 07/06/[address] [place] [address] ,[address] [place] [address] documented as of this encounter
--- OUTSIDE RECORDS SUMMARY | 2022-08-05 09:09 | XMS_ITS | Encounter Summary ---
:1940 Author Organization [facility] Address [address] [place] [address] Care Team Providers Name Role Phone Bobby Das MD Primary Care Provider Encounter Details Date Type Department Care Team Description 08/28/2020 Lab Requisition [facility] Outr Resulting Lab, Pathology & Laboratory Provider [facility] [address] [place], [place] [id number] Social History Tobacco Use Types Packs/Day Years [...] Organization Address City/State/ZIP Code Phon e Number [facility] [place] [place] COVID-19 TESTING (08/28/2020 9:58 EDT) Pathologist [facility] COVID-19 rt-PCR NEGATIVE Negative [facility] Result Comment: LABORATORY 2019-novel Coronavirus (2019 [...] Administration's Emergency Use Authorization. Performing Lab [facility] LABORATORY SERVICES Specimen Swab Performing Organization Address City/State/ZIP Code Phon e Number [facility] [address] [place] [address] SERVICES [facility] [place], [place] documented in this encounter Visit Diagnoses Not on filedocumented in this encounter Care Teams Silk Spotter Relationship Specialty Start Date End Date Bobby Das MD PCP - General 07/06/[address] [place] [address] ,[address] [place] [address] documented as of this encounter
--- OUTSIDE RECORDS SUMMARY | 2022-08-05 09:09 | XMS_ITS | Encounter Summary ---
:1940 Author Organization [facility] Address [address] [place] [address] Care Team Providers Name Role Phone Bobby Das MD Primary Care Provider Reason for Visit Reason Onset Date Comments Medication Management 11/21/2017 Encounter Details Date Type Department Care Team Description 11/21/2017 Orders Only [facility] Radiation De Law RN Oncology - [address] [phone] Social History Tobacco Use Types Packs/Day Years [...] on filedocumented in this encounter Care Teams Arts And Crafts Teacher Relationship Specialty Start Date End Date Bobby Das MD PCP - General 07/06/[address] [place] [address] ,[address] [place] [address] documented as of this encounter
--- OUTSIDE RECORDS SUMMARY | 2022-08-05 09:09 | XMS_ITS | Encounter Summary ---
:1940 Author Organization [facility] Address [address] [place] [address] Care Team Providers Name Role Phone Bobby Das MD Primary Care Provider Encounter Details Date Type Department Care Team Description 01/08/2018 Hospital Encounter [facility] Aries Gutierrez Radiation Oncology - III, [facility] [address] [place] [address] [address] [address], [place] [phone] (Wo rk) Social History Tobacco Use Types [...] on filedocumented in this encounter Care Teams Equipment Superintendent Relationship Specialty Start Date End Date Bobby Das MD PCP - General 07/06/[address] [place] [address],[address] [place] [address] documented as of this encounter
--- OUTSIDE RECORDS SUMMARY | 2022-08-05 09:09 | XMS_ITS | Encounter Summary ---
:1940 Author Organization [facility] Address [address] [place] [address] Care Team Providers Name Role Phone Bobby Das MD Primary Care Provider Reason for Visit Reason Comments Cancer Encounter Details Date Type Department Care Team Description 01/08/2018 Radiation Therapy [facility] Isela Law Ma lignant neoplasm of Visit Radiation Oncology - RN prostat e ([facility]) Main Venus ([facility]) (Primary [address] [facility] Dx) [place] [address] Social History Tobacco Use Types [...] prostate documented in this encounter Care Teams Adjunct Faculty Relationship Specialty Start Date End Date Bobby Das MD PCP - General 07/06/[address] [place] [address],[address] [place] [phone] documented as of this encounter
--- OUTSIDE RECORDS SUMMARY | 2022-08-05 09:09 | XMS_ITS | Clinical Summary ---
:1940 Author Organization [facility] Address [address] [place] [address] Care Team Providers Name Role Phone Bobby [...] Problem Noted Date Malignant neoplasm of prostate ([facility]) 11/19/2017 Cancer Staging: Clinical stage from 11/19: Stage IIB (cT2a, cN0, cM0, PSA: 12.8, Grade Group: 2) - Signed by Delores Gutierrez III, MD on 11/19/2017 Medical History Medical History Date Comments Cancer ([facility]) (HCC) Hyperlipidemia Family History Medical History Relation [...] T ype Group Dates MEDICARE MEDICARE A/B [id number] 2007-Pre [address] edicare GL sent [address] [place] [address] [facility] [id number] 2021-Pre [address] Commercial [facility] sent [place], [place] [phone] COMPANY Koko Zamora Personal/Family Self 1940 [address] (Home) [place] [address] Koko Zamora Personal/Family Self 1940 [address] ([place] [address] Care Teams Wooden Frame Builder Relationship Specialty Start Date End Date Bobby Das MD PCP - General 07/06/[address] [place] [address],[address] [place] [address]
--- OUTSIDE RECORDS SUMMARY | 2022-08-05 09:09 | XMS_ITS | Encounter Summary ---
:1940 Author Organization [facility] Address [address] [place] [address] Care Team Providers Name Role Phone Bobby Das MD Primary Care Provider Encounter Details Date Type Department Care Team Description 04/12/2021 Lab Requisition [facility] Outr Resulting Lab, Pathology & Laboratory Provider [facility] [address] [place], [place] [address] Social History Tobacco Use Types Packs/Day Years [...] nature Testosterone 269 229 - 902 ng/dL [facility] Specimen Blood - Venous blood (substance) Narrative [facility] - 04/12/2021 22:19 EDT The results of this assay can be falsley elevated due to the consumption of Biotin. Performing Organization Address City/State/ZIP Code Phon e Number [facility] [address] [place] [address] SERVICES documented in this encounter Visit Diagnoses Not on filedocumented in this encounter Care Teams Learning Administrator Relationship Specialty Start Date End Date Bobby Das MD PCP - General 07/06/[address] [place] [address] ,[address] [place] [phone] documented as of this encounter
--- OUTSIDE RECORDS SUMMARY | 2022-08-05 09:09 | XMS_ITS | Encounter Summary ---
:1940 Author Organization [facility] Address [address] [place] [address] Care Team Providers Name Role Phone Bobby Das MD Primary Care Provider Reason for Visit Reason Comments Prostate Cancer Encounter Details Date Type Department Care Team Description 02/03/2018 Radiation Therapy [facility] Aries Gutierrez alignant neoplasm Visit Radiation Oncology Felix EAST MD of [facility] - [address] ([facility] ([facility]) [address] [place] [address] (Primary Dx) [facility], [address] [place] [address] [address] [place] [address] Social History Tobacco Use Types Packs/Day Years Used Date Current Every Day Smoker Smokeless Tobacco: Never Used Sex Assigned at Date Recorded Not on file documented as of this encounter Progress Notes Delores Gutierrez III, MD - 02/03/2018 9758 EDT On Treatment Visit Assessment: Koko Zamora is currently receiving radiation therapy treatment and is being seen today for his weekly on treatment visit. The encounter diagnosis was Malignant neoplasm of prostate ([facility]). Assessment: Assessment Completed By: Felix Gutierrez MD (02/03/18 5259) Radiation Therapy: Cumulative RT Dose 600 cGy [...] Changes: None Sj Gutierrez MD Radiation Oncology [phone] (office) [phone] (pager) documented in this encounter Plan of [...] as of this encounter Care Teams It Applications Analyst Relationship Specialty Start Date End Date Bobby Das MD PCP - General 07/06/[address] [place] [address],[address] [place] [address] documented as of this encounter
--- OUTSIDE RECORDS SUMMARY | 2022-08-05 09:09 | XMS_ITS | Encounter Summary ---
:1940 Author Organization [facility] Address [address] [place] [address] Care Team Providers Name Role Phone Bobby Das MD Primary Care Provider Encounter Details Date Type Department Care Team Description 01/08/2018 Procedure visit [facility] Aries Gutierrez Radiation Oncology - IIIMD [address] [address] [address], [place] [phone] (Wo rk) Social History Tobacco Use Types [...] prostate gland. DATE OF SERVICE: 01/08/2018 INDICATIONS: [id number], PSA 12.8 Winifred score 3+4 = 7 [...] documented as of this encounter Care Teams Condenser Operator Relationship Specialty Start Date End Date Bobby Das MD PCP - General 07/06/[address] [place] [address] ,[address] [place] [address] documented as of this encounter
--- OUTSIDE RECORDS SUMMARY | 2022-08-05 09:09 | XMS_ITS | Encounter Summary ---
:1940 Author Organization [facility] Address [address] [place] [address] Care Team Providers Name Role Phone Bobby Das MD Primary Care Provider Encounter Details Date Type Department Care Team Description 04/23/2018 Hospital Encounter [facility]- Devi Unknown, Provider, [facility] [address] [facility] [phone] [place] [address] (Work) [phone] Social History Tobacco Use Types Packs/Day Years [...] filedocumented in this encounter Care Teams Surveillance Supervisor Relationship Specialty Start Date End Date Bobby Das MD PCP - General 07/06/[address] [place] [address] ,[address] [place] [phone] documented as of this encounter
--- OUTSIDE RECORDS SUMMARY | 2022-08-05 09:09 | XMS_ITS | Encounter Summary ---
:1940 Author Organization [facility] Address [address] [place] [address] Care Team Providers Name Role Phone Bobby Das MD Primary Care Provider Reason for Visit Reason Comments Cancer Encounter Details Date Type Department Care Team Description 02/13/2018 Radiation Therapy [facility] Isela Law Ma lignant neoplasm of Visit Radiation Oncology - RN prostat e ([facility]) Main [place] (Primary Dx) [address] [place] [address] Social History Tobacco Use Types Packs/Day [...] encounter diagnosis was Malignant neoplasm of prostate ([facility]). Assessment: Assessment Completed By: Isela Law [...] prostate documented in this encounter Care Teams Senior Mobile Solutions Architect Relationship Specialty Start Date End Date Bobby Das MD PCP - General 07/06/[address] [place] [address] ,[address] [place] [address] documented as of this encounter
--- OUTSIDE RECORDS SUMMARY | 2022-08-05 09:09 | XMS_ITS | Encounter Summary ---
:1940 Author Organization [facility] Address [address] [place] [address] Care Team Providers Name Role Phone Bobby Das MD Primary Care Provider Reason for Visit Reason Comments Other Encounter Details Date Type Department Care Team Description 03/04/2019 Refill [facility] Radiation Adelfo Gutierrez ld Felix III, Other Oncology - Main [facility] [address] [place] [phone] [place] [address] [facility] [address] [place] [address] (Wo rk) Social History [...] documented as of this encounter Care Teams Skein Inspector Relationship Specialty Start Date End Date Bobby Das MD PCP - General 07/06/[address] [place] [address],[address] [place] [phone] documented as of this encounter
--- OUTSIDE RECORDS SUMMARY | 2022-08-05 09:09 | XMS_ITS | Encounter Summary ---
:1940 Author Organization [facility] Address [address] [place] [address] Care Team Providers Name Role Phone Bobby Das MD Primary Care Provider Encounter Details Date Type Department Care Team Description 08/03/2020 Lab Requisition [facility] Outr Resulting Lab, Pathology & Laboratory Provider [facility] [address] [place], [place] [phone] Social History Tobacco Use Types Packs/Day Years [...] (08/03/2020 12:22 EDT) COVID-19 rt-PCR NEGATIVE Negative [facility] Result Comment: LABORATORY 2019-novel [...] Address City/State/ZIP Code Phon e Number [facility] [place] [place] COVID-19 TESTING (08/03/2020 12:22 EDT) Pathologist [facility] COVID-19 rt-PCR NEGATIVE Negative [facility] Result Comment: LABORATORY 2019-novel Coronavirus (2019 [...] Emergency Use Authorization. Performing Lab [facility] LABORATORY SERVICES Specimen Swab Performing Organization Address City/State/ZIP Code Phon e Number [facility] [address] [place] [address] SERVICES [facility] [place], [place] documented in this encounter Visit Diagnoses Not on filedocumented in this encounter Care Teams Marketing Intelligence Analyst Relationship Specialty Start Date End Date Bobby Das MD PCP - General 07/06/[address] [place] [address] ,[address] [place] [address] documented as of this encounter
--- OUTSIDE RECORDS SUMMARY | 2022-08-05 09:09 | XMS_ITS | Encounter Summary ---
:1940 Author Organization [facility] Address [address] [place] [address] Care Team Providers Name Role Phone Bobby Das MD Primary Care Provider Reason for Visit Reason Onset Date Comments Follow-up 01/12/2018 Encounter Details Date Type Department Care Team Description 01/12/2018 Telephone [facility] Radiation De Law RN Follow-up Oncology - [address] [address] Social History Tobacco Use Types Packs/Day Years Used Date Current Every Day Smoker Smokeless Tobacco: Never Used Sex Assigned at Date Recorded Not on file documented as of this encounter Miscellaneous Notes Telephone Encounter - Isela Law RN - 01/12/2018 7444 EST This is a planned post procedure [...] filedocumented in this encounter Care Teams Senior Informatica Etl Developer Relationship Specialty Start Date End Date Bobby Das MD PCP - General 07/06/[address] [place] [address],[address] [place] [address] documented as of this encounter
--- OUTSIDE RECORDS SUMMARY | 2022-08-05 09:09 | XMS_ITS | Encounter Summary ---
:1940 Author Organization [facility] Address [address] [place] [address] Care Team Providers Name Role Phone Bobby Das MD Primary Care Provider Encounter Details Date Type Department Care Team Description 10/29/2017 Hospital Encounter [facility]- Devi Unknown, Provider, [facility] [address] [facility] [phone] [place] [address] (Work) [phone] Social History Tobacco Use Types Packs/Day Years Used Date Never Assessed Sex Assigned at Date Recorded Not on file documented as of this encounter Discharge Disposition Disposition Code Departure Means Destination Home or Self [facility] documented in this encounter Plan of Treatment Not on filedocumented as of this encounter Visit Diagnoses Not on filedocumented in this encounter Care Teams Traffic Law Attorney Relationship Specialty Start Date End Date Bobby Das MD PCP - General 07/06/[address] [place] [address],[address] [place] [address] documented as of this encounter
--- OUTSIDE RECORDS SUMMARY | 2022-08-05 09:09 | XMS_ITS | Encounter Summary ---
:1940 Author Organization [facility] Address [address] [place] [address] Care Team Providers Name Role Phone Bobby Das MD Primary Care Provider Reason for Visit Reason Comments Follow-up Injection Encounter Details Date Type Department Care Team Description 01/05/[address] [facility] Erlin José MD Malignant neoplasm of Urology - Main [address] [place] [address] ([facility]) [facility] (Primary [facility] [place] [address] [address], [place] [address] (Wo rk) [...] Progress Notes Chino José MD - 01/05/2018 3987 EST Chief Complaint: Chief Complaint Patient presents with ??? Follow-up Injection HPI: Koko is a 77 y.o. male with prostate cancer. 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 He previously had [...] Dr. Gutierrez this week See me at [facility] after radiation therapy is complete [...] mg documented in this encounter Care Teams Coke Drawer Hand Relationship Specialty Start Date End Date Bobby Das MD PCP - General 07/06/[address] [place] [address],[address] [place] [phone] documented as of this encounter
--- OUTSIDE RECORDS SUMMARY | 2022-08-05 09:09 | XMS_ITS | Encounter Summary ---
:[address] [facility] Address [address] [place] [address] Care Team Providers Name Role Phone Bobby Das MD Primary Care Provider Encounter Details Date Type Department Care Team Description 01/16/2018 Documentation Visit [facility] Santhosh Cosby Radiation Oncology - Main [address] [phone] Social History Tobacco Use Types Packs/Day Years Used Date Current Every Day Smoker Smokeless Tobacco: Never Used Sex Assigned at Date Recorded Not on file documented as of this encounter Progress Notes Santhosh Cosby - 01/16/2018 6449 EST SOCIAL WORK ASSESSMENT: Amount of Distress: 0 Practical Problems: None Family Problems: None Emotional Problems: None Physical Problems: None Spiritual/Yazidism Concerns: No Other Problems: Social Work Assessment: [...] Prostate Cancer Living Arrangements: Pt lives in [place], [place] with his . They operate a [...] social work as needed. ASH Antonio phone [phone] pager [phone] documented in this encounter Plan of Treatment Not on filedocumented as of this encounter Visit Diagnoses Not on filedocumented in this encounter Care Teams Piggyback Clerk Relationship Specialty Start Date End Date Bobby Das MD PCP - General 07/06/[address] [place] [address],[address] [place] [phone] documented as of this encounter
--- OUTSIDE RECORDS SUMMARY | 2022-08-05 09:09 | XMS_ITS | Encounter Summary ---
:1940 Author Organization [facility] Address [address] [place] [address] Care Team Providers Name Role Phone Bobby Das MD Primary Care Provider Reason for Visit Reason Comments Cancer Encounter Details Date Type Department Care Team Description 02/24/2018 Radiation Therapy [facility] Isela Law Ma lignant neoplasm of prostate (HCC-CMS) (Primary Dx); Visit Radiation Oncology - DION roldan deprivation therapy Main [facility] [address] [place] [address] Social History Tobacco Use Types Packs/Day [...] Visit Diagnoses Diagnosis Malignant neoplasm of prostate ([facility]) (HCC) - Primary Malignant neoplasm of prostate Androgen deprivation therapy Encounter for therapeutic drug monitorin g documented in this encounter Care Teams Logger Driving Horses Relationship Specialty Start Date End Date Bobby Das MD PCP - General 07/06/[address] [place] [address] ,[address] [place] [address] documented as of this encounter
--- OUTSIDE RECORDS SUMMARY | 2022-08-05 09:09 | XMS_ITS | Encounter Summary ---
:1940 Author Organization [facility] Address [address] [place] [address] Care Team Providers Name Role Phone Bobby Das MD Primary Care Provider Encounter Details Date Type Department Care Team Description 10/03/2021 Lab Requisition [facility] Bobby Das Enc ounter for other Pathology & MD general examination Laboratory Medicine [address] [place] [address],[address] [facility] 1 [place], [place] [address] [place] [phone] Social History Tobacco Use Types Packs/Day Years [...] 15:36 EST) Note to Patient The following [facility] pathology results have CENTER been [...] material is identified. Attestation By the signature [facility] Electronica lly below, the attending CENTER signed by Deejay, physician certifies LABORATORY Lis Platt MD on that they have 1) SERVICES 10/08/2021 at 1640 personally conducted a gross and/or microscopic examination of the described specimen(s), and/or personally interpreted the results of laboratory testing of the described specimen(s), and 2) personally rendered or confirmed the above diagnosis. Microscopic Sections consist of an [facility] Description excision of skin to [...] deeper sections. Clinical History Firm lesion not [facility] healing; foreign body CENTER granuloma LABORATORY SERVICES Gross Description A. [facility] Received in formalin christina d [...] A1, and central sections in A2-A4. SERVICES Toin Giordano 10/05/2021 8:15 Performing Lab [facility] LAB [facility] LABORAT[facility] SERVICES Scanned Images [facility] LABORATORY SERVICES Specimen Tissue - Skin (tissue) specimen (specime n) Performing Organization Address City/State/ZIP Code Phon e Number [facility] [address] [place] [address] SERVICES documented in this encounter Visit Diagnoses Diagnosis Encounter for other general examination documented in this encounter Care Teams County Administrator Relationship Specialty Start Date End Date Bobby Das MD PCP - General 07/06/[address] [place] [address] ,[address] [place] [address] documented as of this encounter
--- OUTSIDE RECORDS SUMMARY | 2022-08-05 09:09 | XMS_ITS | Encounter Summary ---
:1940 Author Organization [facility] Address [address] [place] [address] Care Team Providers Name Role Phone Bobby Das MD Primary Care Provider Reason for Visit Reason Comments Prostate Cancer Follow up Encounter Details Date Type Department Care Team Description 07/16/2019 Office Visit [facility] Aries Gutierrez neoplasm of Radiation Oncology - Felix EAST MD prostate ([facility]) Main [address] (Primary Dx) [address] [place] [address] [place] [address], [place] [phone] [facility] [address] [place] [address] (Wo rk) Social History Tobacco [...] DATE OF SERVICE: 07/16/2019 DIAGNOSIS AND STAGE: [id number], PSA 12.8 Winifred score 3+4 = 7 [...] this point. He is being evaluated at [facility] next week for possible tuboplasty. With respect [...] prepared with voice recognition software. Please excuse chuck wagon driver errors. documented in this encounter Plan of [...] ORAL) added in this encounter Care Teams Grain Oilseed Or Pasture Grower Relationship Specialty Start Date End Date Bobby Das MD PCP - General 07/06/[address] [place] [address],[address] [place] [address] documented as of this encounter
--- OUTSIDE RECORDS SUMMARY | 2022-08-05 09:09 | XMS_ITS | Encounter Summary ---
:1940 Author Organization [facility] Address [address] [place] [address] Care Team Providers Name Role Phone Bobby Das MD Primary Care Provider Encounter Details Date Type Department Care Team Description 11/20/2017 Results Only Imaging [facility] [place] [facility]- Unknown, [facility] ProviderMD [phone] Social History Tobacco Use Types Packs/Day Years [...] filedocumented in this encounter Care Teams Film Tests Checker Relationship Specialty Start Date End Date Bobby Das MD PCP - General 07/06/[address] [place] [address],[address] [place] [address] documented as of this encounter
--- OUTSIDE RECORDS SUMMARY | 2022-08-05 09:09 | XMS_ITS | Encounter Summary ---
:1940 Author Organization [facility] Address [address] [place] [address] Care Team Providers Name Role Phone Bobby Das MD Primary Care Provider Encounter Details Date Type Department Care Team Description 07/11/[address] [facility] Aries Gutierrez Radiation Oncology - III, [facility] 111 [facility] [address] [place] [address] [address], [place] [phone] (Wo rk) Social History Tobacco Use Types [...] on filedocumented in this encounter Care Teams Tapering Machine Operator Relationship Specialty Start Date End Date Bobby Das MD PCP - General 07/06/[address] [place] [address] ,[address] [place] [address] documented as of this encounter
--- OUTSIDE RECORDS SUMMARY | 2022-08-05 09:09 | XMS_ITS | Encounter Summary ---
:1940 Author Organization [facility] Address [address] [place] [address] Care Team Providers Name Role Phone Bobby Das MD Primary Care Provider Encounter Details Date Type Department Care Team Description 07/16/2019 Phlebotomy Only [facility] Returned Goods Repairer, Eboni barbosa neoplasm - [facility] of prostate [address] [facility] ([facility]) (Primary [place], [place] Dx) [address] Social History Tobacco Use [...] DIAGNOSTIC of prostate procedure are i n ([facility]) the results section. documented in this encounter Results PSA TOTAL, DIAGNOSTIC (07/16/2019 9:30 EDT) PSA 0.1 0 - 6.5 ng/ml [facility] Comment: LABORATORY SERVICES Serum PSA concentration should not be interpreted as absolute evidence for the presence or absence of malignant disease. Assayed utilizing Siemens (WANdisco) chemiluminescent technology. ??Values obtained by using different assay methods cannot be used interchangeably. Specimen Blood specimen (specimen) - Blood Performing Organization Address City/State/ZIP Code Phon e Number [facility] LABORATORY [address] [place] [address] SERVICES documented in this encounter Visit Diagnoses Diagnosis Malignant neoplasm of prostate ([facility]) (HCC) - Primary Malignant neoplasm of prostate documented in this encounter Orders Lab Orders Without Results Count Last Ordered Date st Ordered Date PSA TOTAL, DIAGNOSTIC 1 07/16/2019 documented in this encounter Care Teams Cut And Print Machine Operator Relationship Specialty Start Date End Date Bobby Das MD PCP - General 07/06/[address] [place] [address],[address] [place] [address] documented as of this encounter
--- OUTSIDE RECORDS SUMMARY | 2022-08-05 09:09 | XMS_ITS | Encounter Summary ---
:1940 Author Organization [facility] Address [address] [place] [address] Care Team Providers Name Role Phone Bobby Das MD Primary Care Provider Reason for Visit Reason Comments Cancer Encounter Details Date Type Department Care Team Description 02/06/2018 Radiation Therapy [facility] Lynn Vargas RN Malignant neoplasm Visit Radiation Oncology 111 [facility] ([facility] ([facility]) [address] [place] [address] (Primary Dx) [place] [phone] Social History Tobacco Use Types Packs/Day Years [...] encounter diagnosis was Malignant neoplasm of prostate ([facility]). Assessment: Assessment Completed By: Lynn Vargas RN [...] documented in this encounter Care Teams Marketing Regional Consultant Relationship Specialty Start Date End Date Bobby Das MD PCP - General 07/06/[address] [place] [address],[address] [place] [address] documented as of this encounter
--- OUTSIDE RECORDS SUMMARY | 2022-08-05 09:09 | XMS_ITS | Encounter Summary ---
:1940 Author Organization [facility] Address [address] [place] [address] Care Team Providers Name Role Phone Bobby Das MD Primary Care Provider Reason for Visit Reason Comments Prostate Cancer Encounter Details Date Type Department Care Team Description 02/10/2018 Radiation Therapy [facility] Aries Gutierrez alignant neoplasm Visit Radiation Oncology Felix EAST MD of [facility] - [address] ([facility]) (Primary [address] [facility] [address] Dx) [facility], [address] [place] [address] [address] [place] [address] Social History Tobacco Use Types [...] encounter diagnosis was Malignant neoplasm of prostate ([facility]). Assessment: Assessment Completed By: Felix Gutierrez MD (02/10/18 5438) Radiation Therapy: Cumulative RT Dose 2400 cGy [...] Changes: None Sj Gutierrez MD Radiation Oncology [phone] (office) [phone] (pager) documented in this encounter Plan of Treatment Not on filedocumented as of this encounter Visit Diagnoses Diagnosis Malignant neoplasm of prostate (HCC-CMS) (HCC) - Primary Malignant neoplasm of prostate documented in this encounter Care Teams Harness Mender Relationship Specialty Start Date End Date Bobby Das MD PCP - General 07/06/[address] [place] [address] ,[address] [place] [address] documented as of this encounter
--- OUTSIDE RECORDS SUMMARY | 2022-08-05 09:09 | XMS_ITS | Encounter Summary ---
:1940 Author Organization [facility] Address [address] [place] [address] Care Team Providers Name Role Phone Bobby Das MD Primary Care Provider Reason for Visit Reason Comments Prostate Cancer Encounter Details Date Type Department Care Team Description 11/19/2017 Office Visit [facility] Aries Gutierrez neoplasm of Radiation Oncology - Felxi EAST MD prostate ([facility]) Main [address] ([facility]) (Primary 111 [facility] Dx) [place], [place] [phone] [place] [address] [facility] [address] [place] [address] (Wo rk) Social History Tobacco [...] Dr. José. 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 His pathology was reviewed here at [facility] which was confirmatory.A bone scan is [...] Social History: He is and lives in [facility]. 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 Once that result is [...] prepared with voice recognition software. Please excuse locksmith apprentice errors documented in this encounter Plan of [...] daily. added in this encounter Care Teams Athletic Team Physician Relationship Specialty Start Date End Date Bobby Das MD PCP - General 07/06/[address] [place] [address] ,[address] [place] [address] documented as of this encounter
--- OUTSIDE RECORDS SUMMARY | 2022-08-05 09:09 | XMS_ITS | Encounter Summary ---
:1940 Author Organization [facility] Address [address] [place] [address] Care Team Providers Name Role Phone Bobby Das MD Primary Care Provider Reason for Visit Reason Comments Prostate Cancer Encounter Details Date Type Department Care Team Description 02/23/2018 Radiation Therapy [facility] Aries Gutierrez alignant neoplasm Visit Radiation Oncology Felix EAST MD of [facility] - [address] ([facility]) (Primary [address] [place] [address] Dx) [facility], [address] [place] [address] Level 2 [place] [address] Social History Tobacco Use [...] encounter diagnosis was Malignant neoplasm of prostate ([facility]). Assessment: Assessment Completed By: Felix Gutierrez MD (02/23/18 4780) Radiation Therapy: Cumulative RT Dose 4800 cGy [...] Dr. King Sj Gutierrez MD Radiation Oncology [phone] (office) [phone] (pager) documented in this encounter Plan of Treatment Not on filedocumented as of this encounter Visit Diagnoses Diagnosis Malignant neoplasm of prostate (HCC-CMS) (HCC) - Primary Malignant neoplasm of prostate documented in this encounter Care Teams Mailing Section Clerk Relationship Specialty Start Date End Date Bobby Das MD PCP - General 07/06/[address] [place] [address] ,[address] [place] [address] documented as of this encounter
--- OUTSIDE RECORDS SUMMARY | 2022-08-05 09:09 | XMS_ITS | Encounter Summary ---
:1940 Author Organization [facility] Address [address] [place] [address] Care Team Providers Name Role Phone Bobby Das MD Primary Care Provider Encounter Details Date Type Department Care Team Description 01/08/2019 Orders Only [facility] Cancer [place] Aries Gutierrez neoplasm of Radiation Oncology - Felix EAST MD prostate ([facility]) [address] (Primary Dx) [address] [place] [address] [place] [phone] [facility] [address] 2 [place] [address] (Wo rk) Social History Tobacco Use Types Packs/Day Years Used Date Current Every Day Smoker Smokeless Tobacco: Never Used Sex Assigned at Date Recorded Not on file documented as of this encounter Plan of Treatment Not on filedocumented as of this encounter Results PSA TOTAL, DIAGNOSTIC (07/16/2019 9:30 EDT) PSA 0.1 0 - 6.5 ng/ml [facility] Comment: LABORATORY SERVICES Serum PSA concentration should not be interpreted as absolute evidence for the presence or absence of malignant disease. Assayed utilizing Siemens ([employer]) chemiluminescent technology. ??Values obtained by using different assay methods cannot be used interchangeably. Specimen Blood specimen (specimen) - Blood Performing Organization Address City/State/ZIP Code Phon e Number [facility] [address] [place] [address] SERVICES documented in this encounter Visit Diagnoses Diagnosis Malignant neoplasm of prostate ([facility]) (HCC) - Primary Malignant neoplasm of prostate documented in this encounter Care Teams Loan Interviewer Mortgage Relationship Specialty Start Date End Date Bobby Das MD PCP - General 07/06/[address] [place] [address],[address] [place] [phone] documented as of this encounter
--- OUTSIDE RECORDS SUMMARY | 2022-08-05 09:09 | XMS_ITS | Encounter Summary ---
:1940 Author Organization [facility] Address [address] [place] [address] Care Team Providers Name Role Phone Bobby Das MD Primary Care Provider Reason for Visit Reason Onset Date Comments Appointment Related 03/19/2018 Encounter Details Date Type Department Care Team Description 03/19/2018 Telephone [facility] Dominique Mirza, [place] ointment Related Urology - James campo RN [address] [place] [address] Social History Tobacco Use Types [...] Tc to pt to advise he contact [facility] and be sure [...] on filedocumented in this encounter Care Teams Paleontology Teacher Relationship Specialty Start Date End Date Bobby Das MD PCP - General 07/06/[address] [place] [address],[address] [place] [address] documented as of this encounter
--- OUTSIDE RECORDS SUMMARY | 2022-08-05 09:09 | XMS_ITS | Encounter Summary ---
:1940 Author Organization [facility] Address [address] [place] [address] Care Team Providers Name Role Phone Bobby Das MD Primary Care Provider Reason for Visit Reason Comments Cancer Encounter Details Date Type Department Care Team Description 02/27/2018 Radiation Therapy [facility] Letty Gaitan RN Malignant neoplasm Visit Radiation Oncology [address] [place] [address] ([facility]) (Primary [address] [place], [place] Dx) [place] [phone] Social History Tobacco Use Types Packs/Day Years [...] encounter diagnosis was Malignant neoplasm of prostate ([facility]). Assessment: Assessment Completed By: Janae Gaitan RN [...] prostate documented in this encounter Care Teams Underwriting Account Representative Relationship Specialty Start Date End Date Bobby Das MD PCP - General 07/06/[address] [place] [address] ,[address] [place] [address] documented as of this encounter
--- OUTSIDE RECORDS SUMMARY | 2022-08-05 09:09 | XMS_ITS | Encounter Summary ---
:1940 Author Organization [facility] Address [address] [place] [address] Care Team Providers Name Role Phone Bobby Das MD Primary Care Provider Encounter Details Date Type Department Care Team Description 07/16/2019 Hospital Encounter [facility] - Dayne Gutierrez [facility] III, MD [phone] [place] [address] [facility] [address] [place] [address] (Wo rk) Social History Tobacco [...] filedocumented in this encounter Care Teams Corn Cooker Relationship Specialty Start Date End Date Bobby Das MD PCP - General 07/06/[address] [place] [address] ,[address] [place] [phone] documented as of this encounter
--- OUTSIDE RECORDS SUMMARY | 2022-08-05 09:09 | XMS_ITS | Encounter Summary ---
:1940 Author Organization [facility] Address [address] [place] [address] Care Team Providers Name Role Phone Bobby Das MD Primary Care Provider Reason for Visit Reason Onset Date Comments Follow-up 03/06/2018 Encounter Details Date Type Department Care Team Description 03/06/2018 Telephone [facility] Theron Rojas RN Follow-up Radiation Oncology - Main [address] [place] [phone] [place] [address] Social History Tobacco Use Types Packs/Day Years [...] on filedocumented in this encounter Care Teams Fleet Maintenance Foreman Relationship Specialty Start Date End Date Bobby Das MD PCP - General 07/06/[address] [place] [address],[address] [place] [address] documented as of this encounter
--- OUTSIDE RECORDS SUMMARY | 2022-08-05 09:09 | XMS_ITS | Encounter Summary ---
:1940 Author Organization [facility] Address [address] [place] [address] Care Team Providers Name Role Phone Bobby Das MD Primary Care Provider Encounter Details Date Type Department Care Team Description 02/25/2018 Documentation Visit [facility] Adama Vargas RN Radiation Oncology - [address] [place] [address] [place] [address] Social History Tobacco Use Types Packs/Day Years Used Date Current Every Day Smoker Smokeless Tobacco: Never Used Sex Assigned at Date Recorded Not on file documented as of this encounter Progress Notes Lynn Vargas RN - 02/25/2018 1443 EDT Koko Zamora requested to be seen [...] on filedocumented in this encounter Care Teams Cone Tender Relationship Specialty Start Date End Date Bobby Das MD PCP - General 07/06/[address] [place] [address],[address] [place] [address] documented as of this encounter
--- OUTSIDE RECORDS SUMMARY | 2022-08-05 09:09 | XMS_ITS | Encounter Summary ---
:1940 Author Organization [facility] Address [address] [place] [address] Care Team Providers Name Role Phone Bobby Das MD Primary Care Provider Reason for Visit Reason Onset Date Comments Medication Management 02/16/2018 Encounter Details Date Type Department Care Team Description 02/16/2018 Orders Only [facility] Radiation [facility] rehab liaison - [address] [phone] Social History Tobacco Use Types Packs/Day Years [...] filedocumented in this encounter Care Teams Branch Credit Counselor Relationship Specialty Start Date End Date Bobby Das MD PCP - General 07/06/[address] [place] [address],[address] [place] [address] documented as of this encounter
--- OUTSIDE RECORDS SUMMARY | 2022-08-05 09:09 | XMS_ITS | Encounter Summary ---
:1940 Author Organization [facility] Address [address] [place] [address] Care Team Providers Name Role Phone Bobby Das MD Primary Care Provider Reason for Visit Reason Comments Prostate Cancer Encounter Details Date Type Department Care Team Description 02/17/2018 Radiation Therapy [facility] Aries Gutierrez alignant neoplasm Visit Radiation Oncology Felix EAST MD of [facility] - [address] ([facility]) (Primary 111 [facility] Dx) [facility], [address] [place] [address] [address] [place] [address] Social History Tobacco Use Types Packs/Day Years Used Date Current Every Day Smoker Smokeless Tobacco: Never Used Sex Assigned at Date Recorded Not on file documented as of this encounter Progress Notes Delores Gutierrez III, MD - 02/17/2018 1114 EDT On Treatment Visit Assessment: Koko Zamora is currently receiving radiation therapy treatment and is being seen today for his weekly on treatment visit. The encounter diagnosis was Malignant neoplasm of prostate ([facility]). Assessment: Assessment Completed By: Felix Gutierrez MD (02/17/18 4074) Radiation Therapy: Cumulative RT Dose 3600 cGy [...] Changes: None Sj Gutierrez MD Radiation Oncology [phone] (office) [phone] (pager) documented in this encounter Plan of Treatment Not on filedocumented as of this encounter Visit Diagnoses Diagnosis Malignant neoplasm of prostate (HCC-CMS) (HCC) - Primary Malignant neoplasm of prostate documented in this encounter Care Teams American Studies Professor Relationship Specialty Start Date End Date Bobby Das MD PCP - General 07/06/[address] [place] [address] ,[address] [place] [address] documented as of this encounter
--- OUTSIDE RECORDS SUMMARY | 2022-08-05 09:09 | XMS_ITS | Encounter Summary ---
:1940 Author Organization [facility] Address [address] [place] [address] Care Team Providers Name Role Phone Bobby Das MD Primary Care Provider Reason for Visit Reason Onset Date Comments Diagnostic Imaging Report 11/25/2017 Encounter Details Date Type Department Care Team Description 11/25/2017 Telephone [facility] Lynn Vargas RN Diagnostic Imaging Radiation Oncology - [address] [place] [address] Report [place], [place] [phone] [place] [address] Social History Tobacco Use Types Packs/Day Years [...] filedocumented in this encounter Care Teams Director [facility] Relationship Specialty Start Date End Date Bobby Das MD PCP - General 07/06/[address] [place] [address] ,[address] [place] [address] documented as of this encounter
--- OUTSIDE RECORDS SUMMARY | 2022-08-05 09:09 | XMS_ITS | Encounter Summary ---
:1940 Author Organization [facility] Address [address] [place] [address] Care Team Providers Name Role Phone Bobby Das MD Primary Care Provider Reason for Visit Reason Comments Cancer Encounter Details Date Type Department Care Team Description 01/08/2018 Radiation Therapy [facility] Isela Law Ma lignant neoplasm of Visit Radiation Oncology - RN prostat e ([facility]) Main [place] ([facility]) (Primary [address] Dx) [place] [address] Social History Tobacco Use Types [...] and get free services/meds from afar. Referrals railway traction line worker: Yes (Shadi will meet with Santhosh Cosby MSW next week to review the DT and supportive services. ) Services: Kylee Bedford: No Other: Subjective Note: General: Koko and his Ursula are here for the treatment teaching session post Fiducials being placed. Shadi and his run a B & B in [place]. They are concerned that he might be [...] prostate documented in this encounter Care Teams Cigar Maker Relationship Specialty Start Date End Date Bobby Das MD PCP - General 07/06/[address] [place] [address] ,[address] [place] [address] documented as of this encounter
--- OUTSIDE RECORDS SUMMARY | 2022-08-05 09:09 | XMS_ITS | Encounter Summary ---
:1940 Author Organization [facility] Address [address] [place] [address] Care Team Providers Name Role Phone Bobby Das MD Primary Care Provider Reason for Visit Reason Onset Date Comments Prostate Cancer 11/20/2017 Encounter Details Date Type Department Care Team Description 11/20/[address] [facility] Cancer Center Aries Gutierrez Cancer Radiation Oncology - III, [address] [address] [address], [place] [address] (Wo rk) Social History Tobacco Use Types Packs/Day Years Used Date Current Every Day Smoker Smokeless Tobacco: Never Used Sex Assigned at Date Recorded Not on file documented as of this encounter Miscellaneous Notes Telephone Encounter - Delores Gutierrez III, MD - 11/20/2017 0219 EST RADIATION ONCOLOGY I spoke with Mr. [...] first injection. Sj Gutierrez MD Radiation Oncology [phone] (office) [phone] (pager) This note has been prepared with voice recognition software. Please excuse radiator specialist errors. documented in this encounter Plan of Treatment Not on filedocumented as of this encounter Visit Diagnoses Diagnosis Malignant neoplasm of prostate (HCC-CMS) (HCC) - Primary Malignant neoplasm of prostate documented in this encounter Care Teams Pest Control Pilot Relationship Specialty Start Date End Date Bobby Das MD PCP - General 07/06/[address] [place] [address],[address] [place] [address] documented as of this encounter
--- OUTSIDE RECORDS SUMMARY | 2022-08-05 09:09 | XMS_ITS | Encounter Summary ---
:1940 Author Organization [facility] Address [address] [place] [address] Care Team Providers Name Role Phone Bobby Das MD Primary Care Provider Reason for Visit Reason Onset Date Comments Cancer 03/18/2018 Encounter Details Date Type Department Care Team Description 03/18/2018 Telephone [facility] Cancer Center Aries Gutierrez II, Cancer Radiation Oncology - [address] [address] [address], [place] [address] (Wo rk) Social History Tobacco Use Types Packs/Day Years Used Date Current Every Day Smoker Smokeless Tobacco: Never Used Sex Assigned at Date Recorded Not on file documented as of this encounter Miscellaneous Notes Telephone Encounter - Delores Gutierrez III, MD - 03/18/2018 4580 EDT RADIATION ONCOLOGY Mr. Zamora called the [...] this month. Sj Gutierrez MD Radiation Oncology [phone] (office) [phone] (pager) This note has been prepared with voice recognition software. Please excuse liaison planner errors. documented in this encounter Plan of Treatment Not on filedocumented as of this encounter Visit Diagnoses Not on filedocumented in this encounter Care Teams Piping Engineer Relationship Specialty Start Date End Date Bobby Das MD PCP - General 07/06/[address] [place] [address] ,[address] [place] [address] documented as of this encounter
--- OUTSIDE RECORDS SUMMARY | 2022-08-05 09:09 | XMS_ITS | Encounter Summary ---
:1940 Author Organization [facility] Address [address] [place] [address] Care Team Providers Name Role Phone Bobby Das MD Primary Care Provider Reason for Visit Reason Onset Date Comments Prostate Cancer 06/03/2018 Encounter Details Date Type Department Care Team Description 06/03/2018 Telephone [facility] Cancer Center Aries Gutierrez Cancer Radiation Oncology - III, [address] [address] [address], [place] [address] (Wo rk) Social History Tobacco Use Types Packs/Day Years Used Date Current Every Day Smoker Smokeless Tobacco: Never Used Sex Assigned at Date Recorded Not on file documented as of this encounter Miscellaneous Notes Telephone Encounter - Delores Gutierrez III, MD - 06/03/2018 0402 EDT RADIATION ONCOLOGY I spoke with Mr. Zamora by phone today. He tells me he is unable to make it to [place] for follow-up visits with me as he [...] office if he will be in the [place] area as I would be happyto move my schedule as needed to see him for follow-up. I did strongly encourage him to continue follow-up with Dr. José and asked him to call them to arrange an appointment. He canceled his next scheduled follow-up appointment with me. Sj Gutierrez MD Radiation Oncology [phone] (office) [phone] (pager) This note has been prepared with voice recognition software. Please excuse rig hand errors. documented in this encounter Plan of Treatment Not on filedocumented as of this encounter Visit Diagnoses Not on filedocumented in this encounter Care Teams Disability Attorney Relationship Specialty Start Date End Date Bobby Das MD PCP - General 07/06/[address] [place] [address],[address] [place] [address] documented as of this encounter
--- OUTSIDE RECORDS SUMMARY | 2022-08-05 09:09 | XMS_ITS | Encounter Summary ---
:[address] [facility] Address [address] [place] [address] Care Team Providers Name Role Phone Bobby Das MD Primary Care Provider Reason for Referral Laboratory Services (Routine) - Closed Specialty Diagnoses / Procedures Referred By Contact Refer red To Contact Diagnoses Malignant neoplasm of prostate ([facility]) ([facility]) Aries Gutierrez III, Procedures PSA TOTAL, DIAGNOSTIC MD [address] [place] [phone] Referral ID Status Reason Start Date Expiration Date Visits Requ ested Visits Authorized [id number] Closed 07/11/2019 1 1 Encounter Details Date Type Department Care Team Description 01/08/2019 Documentation Visit [facility] Cancer Center Aries Gutierrez Malignant neoplasm Radiation Oncology Felix EAST MD of prostate - [address] ([facility]) (Primary 111 [facility] Dx) [facility], [address] [place] [address] [address] Social History Tobacco Use [...] Visit Diagnoses Diagnosis Malignant neoplasm of prostate ([facility]) (HCC) - Primary Malignant neoplasm of prostate documented in this encounter Care Teams Child Day Care Provider Relationship Specialty Start Date End Date Bobby Das MD PCP - General 07/06/[address] [place] [address],[address] [place] [address] documented as of this encounter
--- OUTSIDE RECORDS SUMMARY | 2022-08-05 09:10 | XMS_ITS | Encounter Summary ---
:1940 Author Organization [facility] Address [address] [place] [address] Care Team Providers Name Role Phone Unknown, Provider Primary Care Provider Encounter Details Date Type Department Care Team Description 07/03/2015 Hospital Encounter [facility]- Devi Unknown, Provider, [facility] 0 [facility] [phone] [place] [address] (Work) [phone] Social History Tobacco Use Types Packs/Day Years Used Date Never Assessed Sex Assigned at Date Recorded Not on file documented as of this encounter Discharge Disposition Disposition Code Departure Means Destination Home or Self Penitentiary documented in this encounter Plan of Treatment Not on filedocumented as of this encounter Visit Diagnoses Not on filedocumented in this encounter Care Teams Grave Digger Relationship Specialty Start Date End Date Unknown, Provider, PCP - General 07/03/15 07/05/15 documented as of this encounter
--- OUTSIDE RECORDS SUMMARY | 2022-08-05 09:10 | XMS_ITS | Encounter Summary ---
:1940 Author Organization [facility] Address [address] [place] [address] Care Team Providers Name Role Phone Unknown, Provider Primary Care Provider Encounter Details Date Type Department Care Team Description 07/03/2015 Results Only [facility] Abby Das MD [phone] [place] [address],[address] [place], [place] [phone] (Wo rk) Social History [...] 8:54 EDT) Pathology Report: SURGICAL PATHOLOGY REPORT [facility] Reports generated via electronic interface contain abram ginal data; LABORATORY however they are lacking the format of the original re port. SERVICES Caution should be taken when reading/interpreting unfo rmatted reports. Name: ? ETTA BAH ? Accession #: ? [id number] ? : ? 1940 (Age: 74) ??M ? Collect Date: ? 07/03/2015 ? Location: ? [facility] ? Receive Date: ? 07/04/20 15 ? Provider: ABBY DAS MD Copy to: ? Final Pathologic Diagnosis: SKIN OF JEHOVAH'S WITNESS, RIGHT, EXCISION: - Basal cell carcinoma, infiltrative [...] the above diagnosi s. Specimen(s) Received: R anabaptist Clinical History: Basal cell carcinoma reexcision Gross [...] Organization Address City/State/ZIP Code Phon e Number [facility] [address] [place] [address] SERVICES documented in this encounter Visit Diagnoses Not on filedocumented in this encounter Care Teams Community Health Representative Relationship Specialty Start Date End Date Unknown, Provider, PCP - General 07/03/15 07/05/15 documented as of this encounter
--- OUTSIDE RECORDS SUMMARY | 2022-08-05 09:10 | XMS_ITS | Encounter Summary ---
:1940 Author Organization [facility] Address [address] [place] [id number] Care Team Providers Name Role Phone Bobby Das MD Primary Care Provider Encounter Details Date Type Department Care Team Description 10/29/2017 Results Only [facility] Erlin José MD Urology - [address] [address] [address], [place] [id number] (Wo rk) Social History Tobacco Use Types Packs/Day Years Used Date Never Assessed Sex Assigned at Date Recorded Not on file documented as of this encounter Plan of Treatment Not on filedocumented as of this encounter Procedures Procedure Name Priority Date/Time Associated Diagnosis Comme [facility] SURGICAL PATHOLOGY Routine 10/29/2017 8:21 EST Re sults for this procedure are i n the results section. documented in this encounter Results SURGICAL PATHOLOGY (10/29/2017 8:21 EST) Pathology SURGICAL PATHOLOGY REPORT [facility] MEDICAL Report: Reports generated via electronic interface conta in original data; [facility] however they are lacking the format of the original re port. SERVICES Caution should be taken when reading/interpreting unfo rmatted reports. Name: ? ETTA BAH ? Accession #: ? [id number] ? : ? 1940 (Age: 77) ??M [...] to 6: Prognostic Grad e Group I [place] score 3+4=7: Prognostic Grade Group II [place] score 4+3=7: Prognostic Grade Group III Win[place]red score 8: Prognostic Grade Group IV [place]red score 9-10: Prognostic Grade Group V References for Prognostic Grade Groups: J Clin Hercules 2012;30:[id number] Joey CASTAÑEDA. The Winifred Grading System (A Comple te Guide for Pathologists and Clinicians), LWW, 2013 Serg PM, Shell PW, Edward AW, Joey JI. Progno stic [place]red Grade Grouping: Data based on the modified Plymouth scoring s yste. BJU Int 2013;111:753-760 A. [...] leason pattern: ? Grade 3 ?- ??Secondary Plymouth pattern: ? Grade 3 ?- ??Total Gle [...] of 2 cores. ? - Global tumor [place] score: ?3 + 4 = 7 (30% [...] e Number [facility] [address] [place] [id number] SERVICES documented in this encounter Visit Diagnoses Not on filedocumented in this encounter Care Teams Embedder Relationship Specialty Start Date End Date Bobby Das MD PCP - General 07/06/[address] [place] [address] ,[address] [place] [id number] documented as of this encounter
--- NOTE | 2022-08-05 09:30 | RT.EKG_ITS ---
APPROVED REPORT Exam: Resting ECG Reason for Exam: EKG Changes Patient Location: O HR:84 bpm ECG Measurements Heart Rate 84 AXIS MT [id number] P [id number] QRSd 115 QRS -47 QT 363 T 104 QTc 430 Conclusion Atrial fibrillation...V-rate 60-103, irreg A-activity Left anterior fascicular block...axis(240,-40), init forces inf Nonspecific T abnormalities, lateral leads...T <-0.10mV, I aVL V5 V6
== END 2022-08-09 23:59 | disposition home or self-care (01) ==
LOC: CR 08:55
PROVIDERS: PCP Family Medicine; Visit Provider Internal Medicine Cardiovascular Disease
DX: Z51.89 Encounter for other specified aftercare (principal); Z95.5 Presence of coronary angioplasty implant and graft
CPT/HCPCS: S9472

== ENCOUNTER 2022-08-15 16:09 | Inpatient (IN) | payer MEDICARE, SELFPAY ==
[2022-08-15] VITALS (64 sets, daily range): BP systolic 98–132; BP diastolic 37–68; PULSE 66–83; RESP 7–23; TEMP 36.2–37.1; O2SAT 90–100
[2022-08-15 16:41] LABS: Source Nasal/Nares
--- NOTE | 2022-08-15 16:46 | W.ED.GENAD ---
Discharge Plan Disposition Patient Disposition: [facility] INPATIENT Condition: Stable Discharge Details Chief Complaint: SOB Clinical Impression: ABLA (acute blood loss anemia), GI bleed Primary Care Provider: Bobby Das ED Provider: Jl Gresham [place] Meds and New Rx's Prescriptions: No Action fluticasone propionate 50 mcg/actuation spray,suspension 1 spray intranasal BID Rx Instructions: administer into each nostril mupirocin 2 % ointment 1 applic topical TID acetaminophen 325 mg capsule 650 mg PO Q6H PRN clopidogrel [Plavix] 75 mg tablet 75 mg PO DAILY Farxiga 5 mg tablet 5 mg PO DAILY pantoprazole 40 mg tablet,delayed release (DR/EC) 40 mg PO DAILY Xarelto 20 mg tablet 20 mg PO DAILY Rx Instructions: must administer with evening meal tamsulosin 0.4 mg capsule 1 cap PO 1XD Label Comments: TAKE ONE CAPSULE BY MOUTH AT BEDTIME rosuvastatin 40 mg tablet 1 tab PO 1XD Label Comments: TAKE ONE TABLET BY MOUTH EVERY DAY multivitamin Tablet 1 tab PO DAILY calcium citrate 200 mg (950 mg) Tablet 200 mg PO DAILY carboxymethylcellulose sodium [Refresh Plus] 0.5 % Dropperette 3 drp ophthalmic (eye) TID PRN digoxin 125 mcg (0.125 mg) tablet 125 mcg PO DAILY Label Comments: TAKE ONE TABLET BY MOUTH EVERY DAY sucralfate 1 gram Tablet 1 g PO AC & HS Qty: 120 0RF metoprolol succinate 50 mg tablet extended release 24 hr 25 mg PO BID Qty: 0 0RF valsartan 40 mg tablet 20 mg PO BID Qty: 1 0RF Label Comments: TAKE ONE TABLET BY MOUTH TWICE A DAY Rx Instructions: take half tablet by mouth twice a day Medical Decision Making 81-year-old male with a complicated history including 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 He denies chest pain, fevers, chills, abdomen pain. Denies any black or dark stools. He was admitted in June for gi bleed and anemia and had endoscopy done [place] [facility] due to his comorbidities showing ?angiectasias that were cauterized. He is stable on arrival, does appear pale, has a soft nontender abdomen. Given recurrent anemia from gi bleed will obtain cbc, type and screen and also order two units of packed red cells. hemoglobin 4.9, two units crossmatched and infusion starting. Spoke with Dr. Celaya from GI at [facility], they are at capacity and can't take transfers but recommended ppi as well and admission here, reassess in the morning for possible down and back for endoscopy. Pt updated, will discuss with hospitalist Differential Diagnosis Differential Diagnosis: anemia, gi bleed Medical Records Medical records reviewed: Yes I reviewed the patient's medical records. Lab Data Lab results reviewed: Yes I reviewed the patient's lab results. HPI General Mode of arrival: ambulatory. Date/Time Provider Initiated Documentation: 08/15/22 16:31. Limitations to Documentation: no limitations. Information obtained by: patient. History of Present Illness 81 year old M presents to the emergency department with the chief complaint of general weakness, described as moderate, Patient started experiencing this day(s) (3) and it has been constant. Rest improves symptom(s), Movement worsens symptoms . Patient notes shortness of breath; denies chest pain. Patient did receive the following treatments prior to arrival, none Related Data Home Medications Medication Instructions Recorded Confirmed rosuvastatin 40 mg tablet 1 tab PO 1XD 05/15/22 06/23/22 tamsulosin 0.4 mg capsule 1 cap PO 1XD 05/15/22 08/15/22 fluticasone propionate 50 1 spray intranasal BID 06/13/22 08/15/22 mcg/actuation nasal spray,suspension mupirocin 2 % topical ointment 1 applic topical TID 06/13/22 06/23/22 acetaminophen 325 mg capsule 650 mg PO Q6H PRN 06/14/22 06/23/22 clopidogrel 75 mg tablet (Plavix) 75 mg PO DAILY 06/14/22 06/23/22 dapagliflozin 5 mg tablet (Farxiga) 5 mg PO DAILY 06/14/22 08/15/22 pantoprazole 40 mg tablet,delayed 40 mg PO DAILY 06/14/22 08/15/22 release rivaroxaban 20 mg tablet (Xarelto) 20 mg PO DAILY 06/14/22 08/15/22 calcium citrate 200 mg (950 mg) 200 mg PO DAILY 06/23/22 06/23/22 tablet carboxymethylcellulose sodium 0.5 3 drp ophthalmic (eye) TID PRN 06/23/22 06/23/22 % eye drops in a dropperette (Refresh Plus) digoxin 125 mcg (0.125 mg) tablet 125 mcg PO DAILY 06/23/22 06/23/22 multivitamin 1 tab PO DAILY 06/23/22 06/23/22 metoprolol succinate 50 mg 25 mg PO BID #0 tabs 06/25/22 08/15/22 tablet,extended release 24 hr sucralfate 1 gram tablet 1 g PO AC & HS #120 tabs 06/25/22 valsartan 40 mg tablet 20 mg PO BID #1 tab 06/25/22 08/15/22 Previous Rx's Medication Instructions Recorded metoprolol succinate 50 mg 25 mg PO BID #0 tabs 06/25/22 tablet,extended release 24 hr sucralfate 1 gram tablet 1 g PO AC & HS #120 tabs 06/25/22 valsartan 40 mg tablet 20 mg PO BID #1 tab 06/25/22 Allergies Allergy/AdvReac Type Severity Reaction Status Date / Time aspirin AdvReac GI Bleeding Unverified 07/19/22 12:09 General Stated Complaint: SOB MÓNICA: 2 Review of Systems All systems reviewed & are unremarkable except as noted in HPI and below Constitutional Constitutional: Denies chills and Denies fever(s) ENT Ears, Nose, Mouth, and Throat: Denies change in voice Cardiovascular Cardiovascular: Denies chest pain Respiratory Respiratory: Denies cough Gastrointestinal Gastrointestinal: Denies abdominal pain, Denies nausea and Denies vomiting Musculoskeletal Musculoskeletal: Denies joint swelling Integumentary/Breasts Skin/Breast: Denies rash PFSH All Active Problems (Updated 08/15/22 @ 18:16 by Jl Gresham MD) Dehydration (Acute) GI bleed (Chronic) CHF (congestive heart failure) (Chronic) CAD (coronary artery disease), [place] coronary artery (Chronic) Chronic atrial fibrillation (Chronic) ABLA (acute blood loss anemia) (Acute) Medical History Abnormal stool color Allergic rhinitis Aortic stenosis Cervical radiculopathy Elevated PSA Gastric ulcer with hemorrhage GERD (gastroesophageal reflux disease) Heart failure HLD (hyperlipidemia) Insufficiency of tear film of both eyes Malignant neoplasm of prostate Malignant neoplasm of skin Nicotine dependence Type 2 diabetes mellitus Surgical History H/O heart surgery History of tonsillectomy Family History Father Cancer Mother Cardiac pacemaker Diabetes Brother Hyperlipidemia Social History Smoking/Tobacco Use Status: Former Tobacco Use Quit Date: 05/10/22 Tobacco: How many years used: 62 Smoking risk assessment performed?: Yes Alcohol Intake: former Drug use: Never Substance use type: does not use Do you feel safe at home: Yes Do you feel safe in your relationship?: Yes Exam Const General: no acute distress Orientation: alert HENMT Head: normal to inspection Ears: external ears normal General nose exam: external nose normal Mouth: moist mucous membranes Eyes General: appearance normal, both eyes and all related structures Neck Neck: normal visual inspection Resp Effort & Inspection: normal respiratory effort and able to speak in complete sentences Cardio Rate: regular rate GI Palpation: soft and nontender Skin General skin exam: no rashes or lesions noted Neuro General: patient alert and patient oriented x3 Extrem General: normal to inspection Psych Mental Status: mental status grossly normal Course Vital Signs Vital signs: Vital Signs Temperature 37.1 C 08/15/22 16:15 Temperature 37.0 C 08/15/22 16:32 Temperature Source Tympanic 08/15/22 16:32 Pulse 83 08/15/22 16:32 Respiratory Rate 20 08/15/22 16:32 Respiratory Effort 08/15/22 16:30 Blood Pressure 99/50 L 08/15/22 16:32 Oxygen Delivery Method Room Air 08/15/22 16:32 Oxygen Flow Rate 0 08/15/22 16:32 Pain Level 0 08/15/22 16:32 Lab/Test Results Lab/Test Results: Laboratory Tests Range/Units 08/15/22 16:36 COVID-19 Source Nasal/Nares
[2022-08-15 17:13] LABS: Abs Immature Grans 0.02 10^3/uL (0.0-0.06); Absolute Basophil Count 0.02 10^3/uL (0.0-0.2); Absolute Eosinophil Count 0.14 10^3/uL (0.0-0.7); Absolute Lymphocyte Count 1.39 10^3/uL (1.2-3.4); Absolute Monocyte Count 0.71 10^3/uL (0.1-0.8); Absolute Neutrophil Count 3.52 10^3/uL (1.2-6.7); Basophils % 0.3; Eosinophils % 2.4; Immature Grans % 0.3; MCH 24.4 pg (27.0-33.0); MCHC 29.7 % (32.0-36.0); MCV 82 fL (80-95); MPV 10.2 fL (8.0-11.0); Monocytes % 12.2; Neutrophils % 60.8; Platelet Count 218 10^3/uL (130-400); RBC 2.01 10^6/uL (4.36-5.78); RDW 17.5 % (11.8-14.1); RDW-SD 52.8 fL
[2022-08-15 17:16] LABS: COVID-19 PCR Negative (Negative)
[2022-08-15 17:18] LABS: HCT 16.5 % (40.0-50.0); HGB 4.9 g/dL (13.5-17.5)
[2022-08-15 17:26] LABS: INR 1.1 (0.9-1.1); PTT Activated 21.6 sec (21.0-27.5)
[2022-08-15 17:27] LABS: ALT 19 U/L (16-63); AST 13 U/L (15-37); Albumin 3.3 g/dL (3.4-5.0); Alkaline Phosphatase 77 U/L (46-116); Anion Gap 8.1 mmol/L (3-11); BUN 23 mg/dL (7-18); Bilirubin, Total 0.4 mg/dL (0.2-1.0); CO2 26.9 mmol/L (21.0-32.0); CREATININE 0.9 mg/dL (0.70-1.30); Calcium 8.6 mg/dL (8.5-10.1); Chloride 107 mmol/L (98-107); Estimated GFR 86.88 (mL/min/1.73m2); Glucose 166 mg/dL (74-106); Potassium 3.9 mmol/L (3.5-5.1); Sodium 142 mmol/L (136-145); Total Protein 6.5 g/dL (6.4-8.2)
--- NOTE | 2022-08-15 19:16 | W.PM.HP.N ---
Date of service: 08/15/22 Time of Service: 19:16 Assessment and Plan Assessment and plan (1) ABLA (acute blood loss anemia): Start date: 08/15/22 Status: Acute Assessment and plan: This is a 81-year-old gentleman who is a reported to have recurrent acute GI blood loss with severe anemia on anticoagulation including Xarelto and Plavix for cardiovascular issues. 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 GI may want to review the patient's work-up and study the small bowel with video capsule. Patient will need to continue on at least his Plavix but both Plavix and Xarelto held for now. Patient is being transfused and responding well with the BUN being normal not indicating upper GI blood loss with digestion of blood at least. Patient also has not seen any bright red blood or melena. This may be a slow bleed recurrence. This will be a challenge with the patient's medical needs and risk for bleeding with no clear resolution immediately. He is a full code. (2) GI bleed: Status: Chronic Assessment and plan: Recurrent with angiectasia and polyps found thus far but further investigations as discussed above. [facility] will be involved. Patient is on clear fluid diet for now with possible transfer to [facility] for further investigations after reconsultation in the morning. (3) Chronic atrial fibrillation: Status: Chronic Assessment and plan: Controlled rate and on Xarelto chronically scheduled to be rediscussed with his continued bleeding which is risk for exacerbation of his cardiovascular status. Patient is a full code. (4) CAD (coronary artery disease), [place] coronary artery: Status: Chronic Assessment and plan: Status post stenting on Plavix which will need to be continued with risk-benefit to be reviewed with patient. Asymptomatic with no trending of troponins for now. (5) Type 2 diabetes mellitus: History of Present Illness History of Present Illness Chief Complaint: Weakness with Recurrent anemia with GI blood loss on anticoagulation Narrative: This is 81-year-old gentleman who has a history of significant cardiovascular events over this last summer with thromboembolectomy of his SFA, profunda and common femoral artery on the left with well-healed scar and was found to have atrial fibrillation which he thinks is due to chronic not previously on anticoagulation but now on Xarelto. He also had a non-STEMI prompting cardiac ablation with stenting and is on Plavix with aspirin at 1 point but now only on Plavix. He had a GI bleed due to significant prior to this admission prompting [facility] evaluation with upper and lower endoscopy revealing polyps in the colon and angiectasia found in the upper scope and colon. Cauterization was performed on some of these bleeding vessels. Patient denies any melena or dark stool recently has had no bright red blood but was found to be profoundly anemic again with generalized weakness and some slight shortness of breath for 3 days prompting evaluation by his PCP who obtained lab. His hemoglobin was below 5 and the did receive 2 units of packed red blood cells initiated ED with further transfusions ordering the third unit since the hemoglobin and hematocrit were still below 8 g/dL and 25%. The patient was not having any increased peripheral edema with his weakness and shortness of breath and denies any chest pain. He also denied any leg pain with ambulation. [facility] was consulted in the ED and will reevaluate possible transfer for further studies but was at capacity cannot accept the patient in transfer from the ED. He appears to be stable with steady, slow blood loss rather than an acute bleed recently. Review of Systems Narrative: 13 point review of systems otherwise unrevealing or stable. PFSH All Active Problems Dehydration (Acute) GI bleed (Chronic) CHF (congestive heart failure) (Chronic) CAD (coronary artery disease), [place] coronary artery (Chronic) Chronic atrial fibrillation (Chronic) ABLA (acute blood loss anemia) (Acute) Medical History Abnormal stool color Allergic rhinitis Aortic stenosis Cervical radiculopathy Elevated PSA Gastric ulcer with hemorrhage GERD (gastroesophageal reflux disease) Heart failure HLD (hyperlipidemia) Insufficiency of tear film of both eyes Malignant neoplasm of prostate Malignant neoplasm of skin Nicotine dependence Type 2 diabetes mellitus Surgical History H/O heart surgery History of tonsillectomy Family History Father Cancer Mother Cardiac pacemaker Diabetes Brother Hyperlipidemia Social History Smoking/Tobacco Use Status: Former Tobacco Use Quit Date: 05/10/22 Tobacco: How many years used: 62 Smoking risk assessment performed?: Yes Alcohol Intake: former Drug use: Never Substance use type: does not use Do you feel safe at home: Yes Do you feel safe in your relationship?: Yes Meds Allergies and Home Medications Allergies Allergy/AdvReac Type Severity Reaction Status Date / Time aspirin AdvReac Mild GI Bleeding Unverified 08/15/22 19:42 Home Medications Medication Instructions Recorded Confirmed Type rosuvastatin 40 mg tablet 1 tab PO 1XD 05/15/22 08/15/22 History tamsulosin 0.4 mg capsule 1 cap PO 1XD 05/15/22 08/15/22 History fluticasone propionate 50 1 spray intranasal BID 06/13/22 08/15/22 History mcg/actuation nasal spray,suspension clopidogrel 75 mg tablet (Plavix) 75 mg PO DAILY 06/14/22 08/15/22 History dapagliflozin 5 mg tablet (Farxiga) 5 mg PO DAILY 06/14/22 08/15/22 History pantoprazole 40 mg tablet,delayed 40 mg PO DAILY 06/14/22 08/15/22 History release rivaroxaban 20 mg tablet (Xarelto) 20 mg PO DAILY 06/14/22 08/15/22 History calcium citrate 200 mg (950 mg) 200 mg PO DAILY 06/23/22 08/15/22 History tablet carboxymethylcellulose sodium 0.5 3 drp ophthalmic (eye) TID PRN Eye 06/23/22 08/15/22 History % eye drops in a dropperette Irritation (Refresh Plus) multivitamin 1 tab PO DAILY 06/23/22 08/15/22 History metoprolol succinate 50 mg 25 mg PO BID #0 tabs 06/25/22 08/15/22 Rx tablet,extended release 24 hr valsartan 40 mg tablet 20 mg PO BID #1 tab 06/25/22 08/15/22 Rx fluticasone propionate 50 50 mcg intranasal PRN PRN 08/15/22 08/15/22 History mcg/actuation nasal spray,suspension sildenafil 100 mg tablet 100 mg PO PRN PRN 08/15/22 08/15/22 History Exam Narrative Exam Narrative: General: Patient appears appropriate for age, alert and oriented x3 and in no acute distress. He feels better after 2 units of packed red blood cell transfusion. HEENT: Normocephalic, eyes with pupils equal react light symmetrically, extraocular movement tact and sclera anicteric. Oropharynx with moist mucosa. Neck: Supple without JVD. Back: Normal posture without CVA tenderness. Lungs: Fair aeration clear to oscillation percussion. Heart: Irregularly irregular rhythm with normal rate, systolic murmur left sternal border. No gallop or rubs. Abdomen: Normal contour, soft and nontender to palpation with no palpable hepatosplenomegaly. Bowel sounds positive all quadrants. Genitalia/rectal: Exam deferred. There is a well-healed scar left inguinal region with palpable subcutaneous scar tissue versus lymph node which is nonpulsatile but firm and mobile. Extremities: Without clubbing, cyanosis or pitting edema. Fair capillary refill. Previous fasciotomy scars both legs without ulcers or drainage. Skin: Pale, warm and dry. Neuro: Cranial nerves II through XII grossly intact. No focalizing motor deficits. No tremor. Psych: Normal affect and mood. No abnormal thought processes. Remote and recent memory grossly intact. Results Labs Result diagrams: 08/16/22 00:16 08/16/22 06:16 Labs: Laboratory Results - last 24 hr 08/15/22 08/15/22 08/15/22 16:36 16:56 16:56 WBC 5.80 RBC 2.01 L Hgb 4.9 L* Hct 16.5 L* MCV 82 MCH 24.4 L MCHC 29.7 L RDW 17.5 H Plt Count 218 MPV 10.2 Immature Gran % 0.3 Neutrophils % 60.8 Lymphocytes % 24.0 Monocytes % 12.2 Eosinophils % 2.4 Basophils % 0.3 Nucleated RBC % 0.0 Absolute Neutrophils 3.52 Absolute Lymphocytes 1.39 Absolute Monocytes 0.71 Absolute Eosinophils 0.14 Absolute Basophils 0.02 PT INR APTT Sodium 142 Potassium 3.9 Chloride 107 Carbon Dioxide 26.9 Anion Gap 8.1 BUN 23 H Creatinine 0.9 Est GFR (CKD-EPI 2020) 86.88 Glucose 166 H Calcium 8.6 Magnesium 2.0 Total Bilirubin 0.4 AST 13 L ALT 19 Alkaline Phosphatase 77 Total Protein 6.5 Albumin 3.3 L COVID-19 Source Nasal/Nares SARS-CoV-2 (PCR) Negative Patient ABO/Rh Antibody Screen Crossmatch 08/15/22 08/15/22 16:56 17:08 WBC RBC Hgb Hct MCV MCH MCHC RDW Plt Count MPV Immature Gran % Neutrophils % Lymphocytes % Monocytes % Eosinophils % Basophils % Nucleated RBC % Absolute Neutrophils Absolute Lymphocytes Absolute Monocytes Absolute Eosinophils Absolute Basophils PT 11.0 INR 1.1 APTT 21.6 Sodium Potassium Chloride Carbon Dioxide Anion Gap BUN Creatinine Est GFR (CKD-EPI 2020) Glucose Calcium Magnesium Total Bilirubin AST ALT Alkaline Phosphatase Total Protein Albumin COVID-19 Source SARS-CoV-2 (PCR) Patient ABO/Rh O Positive Antibody Screen NEGATIVE Crossmatch See Detail Last Vital Signs Temp 37.0 C 08/15/22 18:06 Pulse 78 08/15/22 18:43 Resp 15 08/15/22 18:43 BP 101/68 08/15/22 18:43 Pulse Ox 94 08/15/22 18:40
[2022-08-15] MEDS: Rosuvastatin 10 MG TAB 40 MG PO (21:38)
[2022-08-15] MEDS: Metoprolol 12.5 MG TAB PO (21:38)
[2022-08-15] MEDS: Insulin Aspart 300 UNITS/3 ML PEN SC (21:38)
[2022-08-15] MEDS: Normal Saline 1,000 ML 80 ML IV (23:54)
[2022-08-16] VITALS (15 sets, daily range): BP systolic 101–130; BP diastolic 43–65; PULSE 52–80; RESP 14–20; TEMP 36.5–37.8; O2SAT 92–96
[2022-08-16 00:32] LABS: Abs Immature Grans 0.03 10^3/uL (0.0-0.06); Absolute Basophil Count 0.05 10^3/uL (0.0-0.2); Absolute Eosinophil Count 0.19 10^3/uL (0.0-0.7); Absolute Lymphocyte Count 1.97 10^3/uL (1.2-3.4); Absolute Monocyte Count 0.94 10^3/uL (0.1-0.8); Absolute Neutrophil Count 3.47 10^3/uL (1.2-6.7); Basophils % 0.8; Eosinophils % 2.9; HCT 23.3 % (40.0-50.0); HGB 7.2 g/dL (13.5-17.5); Immature Grans % 0.5; Lymphocytes % 29.6; MCH 25.9 pg (27.0-33.0); MCHC 30.9 % (32.0-36.0); MCV 84 fL (80-95); MPV 9.9 fL (8.0-11.0); Monocytes % 14.1; Neutrophils % 52.1; Platelet Count 207 10^3/uL (130-400); RBC 2.78 10^6/uL (4.36-5.78); RDW 16.6 % (11.8-14.1); RDW-SD 51.1 fL; WBC 6.65 10^3/uL (4.4-10.8)
[2022-08-16] MEDS: Pantoprazole 40 MG VIAL IVP ×3 (00:43→19:48)
[2022-08-16 00:46] LABS: INR 1.1 (0.9-1.1); PTT Activated 23.5 sec (21.0-27.5); Prothrombin Time 10.7 sec (9.3-11.0)
[2022-08-16] MEDS: Metoprolol 12.5 MG TAB PO ×4 (02:35→21:39)
[2022-08-16 06:59] LABS: ALT 18 U/L (16-63); AST 12 U/L (15-37); Albumin 3.3 g/dL (3.4-5.0); Alkaline Phosphatase 79 U/L (46-116); Anion Gap 8.8 mmol/L (3-11); BUN 20 mg/dL (7-18); Bilirubin, Total 1.3 mg/dL (0.2-1.0); CO2 25.2 mmol/L (21.0-32.0); CREATININE 0.8 mg/dL (0.70-1.30); Calcium 8.6 mg/dL (8.5-10.1); Chloride 108 mmol/L (98-107); Estimated GFR 90.02 (mL/min/1.73m2); Glucose 139 mg/dL (74-106); Potassium 3.6 mmol/L (3.5-5.1); Sodium 142 mmol/L (136-145); Total Protein 6.4 g/dL (6.4-8.2)
[2022-08-16 09:06] LABS: Abs Immature Grans 0.02 10^3/uL (0.0-0.06); Absolute Basophil Count 0.04 10^3/uL (0.0-0.2); Absolute Eosinophil Count 0.18 10^3/uL (0.0-0.7); Absolute Lymphocyte Count 1.54 10^3/uL (1.2-3.4); Absolute Monocyte Count 1.03 10^3/uL (0.1-0.8); Absolute Neutrophil Count 4.26 10^3/uL (1.2-6.7); Basophils % 0.6; Eosinophils % 2.5; HCT 24.9 % (40.0-50.0); HGB 7.8 g/dL (13.5-17.5); Immature Grans % 0.3; Lymphocytes % 21.8; MCH 26.4 pg (27.0-33.0); MCHC 31.3 % (32.0-36.0); MCV 84 fL (80-95); MPV 10.6 fL (8.0-11.0); Monocytes % 14.6; Neutrophils % 60.2; Platelet Count 196 10^3/uL (130-400); RBC 2.96 10^6/uL (4.36-5.78); RDW 16.6 % (11.8-14.1); RDW-SD 51.2 fL; WBC 7.07 10^3/uL (4.4-10.8)
[2022-08-16] MEDS: Normal Saline Flush 10 ML SYR IVP (09:53)
--- NOTE | 2022-08-16 10:58 | INITIAL_ITS ---
- If Service Date Differs Date of service: 08/16/22 Time of Service: 10:58 Care Management Initial Assess REASON FOR HOSPITALIZATION:: Anemia PAST MEDICAL HISTORY/PAST SURGICAL HISTORY:: All Active Problems . Dehydration (Acute). GI bleed (Chronic). CHF (congestive heart failure) (Chronic). CAD (coronary artery disease), [place] coronary artery (Chronic). Chronic atrial fibrillation (Chronic). ABLA (acute blood loss anemia) (Acute). Medical History . Abnormal stool color. Allergic rhinitis. Aortic stenosis. Cervical radiculopathy. Elevated PSA. Gastric ulcer with hemorrhage. GERD (gastroesophageal reflux disease). Heart failure. HLD (hyperlipidemia). Insufficiency of tear film of both eyes. Malignant neoplasm of prostate. Malignant neoplasm of skin. Nicotine dependence. Type 2 diabetes mellitus. Surgical History . H/O heart surgery. History of tonsillectomy PREVIOUS FUNCTIONAL STATUS/SOCIAL/FAMILY SUPPORTS:: Koko lives in [place] with his Ursula. They have 2 children; one daughter lives locally and their son lives in [place]. They have 5 grand children and a dog named Carter. Shadi is independent at baseline and does nor receive any services. CURRENT FUNCTIONAL STATUS:: Shadi was lying in bed visiting with his Ursula. He admitted to being frustrated but was agreeable to conversation and revealed a good sense of humor in many of his responses. Shadi was admitted with symptomatic blood loss anemia, His Hgb on admission was 4.9. He has received 3 units of blood and his Hgb is now 7.8.Shadi was kept NPO in case a GI procedure was indicated but [facility] had no capacity for an admission or down and back EGD or colosnoscopy until at friday. He expressed frustration with being kept NPO and with feeling that nobody is doing anything to find out where I am bleeding and why. The provider had not seen Shadi yet at that point but did shortly afterwards. He answered their questions and ordered a diet. Shadi admitted to feeling much better when visited again after the provider had seen him. ADVANCE DIRECTIVES:: none on file Has patient been provided with info about the portal/API?: Yes Did the patient sign up for the portal?: No CODE STATUS:: Full Code INSURANCE COVERAGE / FINANCIAL ISSUES:: Medicare. [employer] CURRENT HOME/COMMUNITY SERVICES/EQUIPMENT:: none PRIMARY CARE PHYSICIAN:: Bobby Young POTENTIAL DISCHARGE NEEDS:: follow up with community providers and plan of care PATIENT/FAMILY EDUCATION NEEDS:: Review of discharge instructions, activity, limitations, follow up plan, Ask Me Three TRANSPORTATION:: via private vehicle with family PLAN:: Koko will likely return home when medically cleared by provider. He will follow up with his community providers and plan of care and transport with family. CM continues to follow.
[2022-08-16] MEDS: Insulin Aspart 300 UNITS/3 ML PEN SC (11:51)
--- NOTE | 2022-08-16 14:55 | PGE_ITS ---
Date of Service Date of service: 08/16/22 Time of Service: 14:56 Assessment and Plan Assessment and plan (1) GI bleed: Status: Chronic Assessment and plan: probably a slow GI bleed. none seen since admisson. Will advance diet, monitor hemogram and resume his Plavix for his coronary stents and resume his Xarelto for his PAD (he has hx of thromboembolism to his leg). (2) Chronic atrial fibrillation: Status: Chronic Assessment and plan: resume rivaroxaban and continue his metoprolol (3) Chronic blood loss anemia: Status: Acute Assessment and plan: s/p transfusion of 3 units of PRBC. Hb 7.8. will monitor and if stable overnight then will repeat labs next week. He probably should be monitored weekly for next month and he needs to get back [place] [facility]. Subjective Subjective Interval history since last seen: Patient denies any abdominal pains, but was noticing increasing dyspnea, fatigue, lightheadedness. He states that his stools had been getting darker than usual but no overt hematochezia or melena. Today his Hb is up to 7.8 gm after 3 units. He is hungry and would like to eat. I told the patient and his that I spoke w/ Dr. Arroyo from [place] at [facility] and she indicated that [facility] [place] no bed capacity and also did not have ability to perform endoscopy today. She suggested that if he rebleeds that I reach out to other tertiary care centers to try to transfer him for endoscopy. She indicated that if [facility] [place] him they would perform push enteroscopy. Patient has hx of multiple angioectasias and colon polyps. I am going to restart a diet, monitor his blood count overnight and restart his Xarelto and his Plavix. Exam Narrative Exam Narrative: Patient is alert and oriented; no discomfort or dyspnea Lungs: clear Heart: irregularly irregular; loud holosystolic murmur Abdomen: soft, nontender. Objective Last Vital Signs Temp 37.1 C 08/16/22 11:34 Pulse 64 08/16/22 11:34 Resp 16 08/16/22 11:34 BP 101/44 L 08/16/22 11:34 Pulse Ox 92 08/16/22 11:34 Laboratory Results - last 24 hr 08/15/22 08/15/22 08/15/22 16:36 16:56 16:56 WBC 5.80 RBC 2.01 L Hgb 4.9 L* Hct 16.5 L* MCV 82 MCH 24.4 L MCHC 29.7 L RDW 17.5 H Plt Count 218 MPV 10.2 Immature Gran % 0.3 Neutrophils % 60.8 Lymphocytes % 24.0 Monocytes % 12.2 Eosinophils % 2.4 Basophils % 0.3 Nucleated RBC % 0.0 Absolute Neutrophils 3.52 Absolute Lymphocytes 1.39 Absolute Monocytes 0.71 Absolute Eosinophils 0.14 Absolute Basophils 0.02 PT INR APTT Sodium 142 Potassium 3.9 Chloride 107 Carbon Dioxide 26.9 Anion Gap 8.1 BUN 23 H Creatinine 0.9 Est GFR (CKD-EPI 2020) 86.88 Glucose 166 H Calcium 8.6 Magnesium 2.0 Total Bilirubin 0.4 AST 13 L ALT 19 Alkaline Phosphatase 77 Total Protein 6.5 Albumin 3.3 L COVID-19 Source Nasal/Nares SARS-CoV-2 (PCR) Negative Patient ABO/Rh Antibody Screen Crossmatch 08/15/22 08/15/22 08/16/22 16:56 17:08 00:16 WBC RBC Hgb Hct MCV MCH MCHC RDW Plt Count MPV Immature Gran % Neutrophils % Lymphocytes % Monocytes % Eosinophils % Basophils % Nucleated RBC % Absolute Neutrophils Absolute Lymphocytes Absolute Monocytes Absolute Eosinophils Absolute Basophils PT 11.0 10.7 INR 1.1 1.1 APTT 21.6 23.5 Sodium Potassium Chloride Carbon Dioxide Anion Gap BUN Creatinine Est GFR (CKD-EPI 2020) Glucose Calcium Magnesium Total Bilirubin AST ALT Alkaline Phosphatase Total Protein Albumin COVID-19 Source SARS-CoV-2 (PCR) Patient ABO/Rh O Positive Antibody Screen NEGATIVE Crossmatch See Detail 08/16/22 08/16/22 08/16/22 00:16 06:16 06:16 WBC 6.65 7.07 RBC 2.78 L 2.96 L Hgb 7.2 L D 7.8 L Hct 23.3 L 24.9 L MCV 84 84 MCH 25.9 L 26.4 L MCHC 30.9 L 31.3 L RDW 16.6 H 16.6 H Plt Count 207 196 MPV 9.9 10.6 Immature Gran % 0.5 0.3 Neutrophils % 52.1 60.2 Lymphocytes % 29.6 21.8 Monocytes % 14.1 14.6 Eosinophils % 2.9 2.5 Basophils % 0.8 0.6 Nucleated RBC % 0.0 0.0 Absolute Neutrophils 3.47 4.26 Absolute Lymphocytes 1.97 1.54 Absolute Monocytes 0.94 H 1.03 H Absolute Eosinophils 0.19 0.18 Absolute Basophils 0.05 0.04 PT INR APTT Sodium 142 Potassium 3.6 Chloride 108 H Carbon Dioxide 25.2 Anion Gap 8.8 BUN 20 H Creatinine 0.8 Est GFR (CKD-EPI 2020) 90.02 Glucose 139 H Calcium 8.6 Magnesium Total Bilirubin 1.3 H AST 12 L ALT 18 Alkaline Phosphatase 79 Total Protein 6.4 Albumin 3.3 L COVID-19 Source SARS-CoV-2 (PCR) Patient ABO/Rh Antibody Screen Crossmatch 08/16/22 Unknown WBC RBC Hgb Cancelled Hct Cancelled MCV MCH MCHC RDW Plt Count MPV Immature Gran % Neutrophils % Lymphocytes % Monocytes % Eosinophils % Basophils % Nucleated RBC % Absolute Neutrophils Absolute Lymphocytes Absolute Monocytes Absolute Eosinophils Absolute Basophils PT INR APTT Sodium Potassium Chloride Carbon Dioxide Anion Gap BUN Creatinine Est GFR (CKD-EPI 2020) Glucose Calcium Magnesium Total Bilirubin AST ALT Alkaline Phosphatase Total Protein Albumin COVID-19 Source SARS-CoV-2 (PCR) Patient ABO/Rh Antibody Screen Crossmatch
[2022-08-16] MEDS: Clopidogrel 75 MG TAB PO (16:43)
[2022-08-16] MEDS: Rivaroxaban 10 MG TABLET 20 MG PO (16:43)
[2022-08-16] MEDS: Tamsulosin 0.4 MG CAPCR PO (19:47)
[2022-08-16] MEDS: Rosuvastatin 10 MG TAB 40 MG PO (19:48)
[2022-08-16] MEDS: Valsartan 40 MG TAB 20 MG PO (19:48)
[2022-08-17 02:18] VITALS: PULSE 74
[2022-08-17 02:55] VITALS: BP 119/44; PULSE 78; RESP 14; TEMP 37.2; O2SAT 93
[2022-08-17] MEDS: Metoprolol 12.5 MG TAB PO (02:55)
[2022-08-17 06:22] LABS: Abs Immature Grans 0.02 10^3/uL (0.0-0.06); Absolute Basophil Count 0.04 10^3/uL (0.0-0.2); Absolute Eosinophil Count 0.19 10^3/uL (0.0-0.7); Absolute Lymphocyte Count 1.56 10^3/uL (1.2-3.4); Absolute Monocyte Count 1.02 10^3/uL (0.1-0.8); Absolute Neutrophil Count 4.52 10^3/uL (1.2-6.7); Basophils % 0.5; Eosinophils % 2.6; HCT 25.1 % (40.0-50.0); HGB 7.8 g/dL (13.5-17.5); Immature Grans % 0.3; Lymphocytes % 21.2; MCH 25.9 pg (27.0-33.0); MCHC 31.1 % (32.0-36.0); MCV 83 fL (80-95); MPV 10.3 fL (8.0-11.0); Monocytes % 13.9; Neutrophils % 61.5; Platelet Count 218 10^3/uL (130-400); RBC 3.01 10^6/uL (4.36-5.78); RDW 16.8 % (11.8-14.1); RDW-SD 51.7 fL; WBC 7.35 10^3/uL (4.4-10.8)
[2022-08-17 06:32] LABS: Anion Gap 8.4 mmol/L (3-11); BUN 14 mg/dL (7-18); CO2 24.6 mmol/L (21.0-32.0); CREATININE 0.8 mg/dL (0.70-1.30); Calcium 8.5 mg/dL (8.5-10.1); Chloride 106 mmol/L (98-107); Estimated GFR 90.02 (mL/min/1.73m2); Glucose 118 mg/dL (74-106); Potassium 3.4 mmol/L (3.5-5.1); Sodium 139 mmol/L (136-145)
[2022-08-17 07:00] VITALS: PULSE 74
[2022-08-17 07:19] VITALS: BP 103/42; PULSE 85; RESP 19; TEMP 37; O2SAT 92
[2022-08-17] MEDS: Clopidogrel 75 MG TAB PO (07:42)
[2022-08-17] MEDS: Normal Saline Flush 10 ML SYR IVP (07:46)
[2022-08-17] MEDS: Pantoprazole 40 MG VIAL IVP (07:46)
[2022-08-17] MEDS: Potassium Chloride 10 MEQ CAPCR 20 MEQ PO (09:04)
--- NOTE | 2022-08-17 09:30 | W.PM.DS.N ---
Date of service: 08/17/22 Time of Service: 09:30 DS: Diagnosis Discharge Diagnosis (1) Chronic blood loss anemia: Status: Chronic Asessment and Plan: patient was admitted w/ Hb 4.9 gm w/ sx of fatigue, increasing dypsnea, lightheadedness but did not exhibit acute bleeding such as hematemesis or hematochezia or melena. He was transfused total of 3 units of PRBC and achieved Hb of 7.8 gm which remained stable for 24 hrs. He was discharged on iron supplement w/ vit C and folic acid. He will get repeat CBC on Friday. He should have weekly blood counts for next month to ensure his Hb continues to improve. he should follow up both w/ his PCP as well as [facility] services. (2) Chronic atrial fibrillation: Status: Chronic Asessment and Plan: patient was resumed on his Xarelto and his Plavix d/t his hx of recent coronary stents and recent thromboembolectomy from his L leg. Discharge Plan Disposition Patient Disposition: HOME Condition: Improving Discharge Details Reason For Visit: Acute on Chronic Blood Loss Anemia, GI Bleed Admit Date/Time: 08/15/22 18:57 Admit Provider: Matt Prieto Attending Provider: Matt Prieto Primary Care Provider: Bobby Das [facility] Course Hospital Course: 81-year-old gentleman with history of coronary artery disease with NSTEMI and coronary stenting earlier this summer as well as a history of thromboembolectomy of his SFA and profunda and common femoral artery on the left, chronic atrial fibrillation for which she is chronically anticoagulated on Xarelto has had recurrent GI bleeding and for which she underwent upper and lower endoscopy at [facility] last month that revealed colon polyps that were not removed as well as 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 Some of these were bleeding vessels which were cauterized. Patient presented to [facility] with recurrent symptoms of anemia with lightheadedness generalized weakness and shortness of breath for the last several days. His PCP obtain a CBC which showed his hemoglobin to be 4.9 g. He was admitted to hospital for transfusion. Patient has not noticed any melanotic or hematochezia and has had no hematemesis. He denies any abdominal pains. His presenting hemoglobin of 4.9 g required transfusion. He was given 2 units of packed red cells which brought his blood count up to 7.2 g. He was given 1 additional unit of packed red cells bring his hemoglobin up to 7.8 g. After transfusion of a total of 3 units he was monitored for 24 hours and repeat hemoglobin on day of discharge was 7.8 g. Because his blood pressures are borderline low normal his metoprolol dose was decreased from 25 mg twice daily to 25 mg at at bedtime. Patient previously been on valsartan and it was still on his medication list. Because of his history of heart failure it was recommended that he remain on the valsartan however he had symptoms of abdominal cramping after taking the valsartan but his symptoms resolved overnight. The valsartan has been discontinued from his regimen. Patient was restarted on his clopidogrel and rivaroxaban on the night prior to discharge and he has had no apparent bleeding overnight. Repeat CBC will be performed next Friday and it is recommended that his primary care provider monitor his blood count weekly for the next month. Patient was started on iron supplement with folic acid and vitamin C to help with his anemia. [facility] was contacted by our emergency room for discussion of transfer however there was no bed capacity at [facility]. GI fellow Dr. Arroyo contact me on 08/16/2022 because there been talk of him possibly going to [facility] for I doubt it back push enteroscopy however they could not accommodate him on 08/16/2022 and indicated if he has recurrent bleeding that we try to transfer him to another tertiary care center. Otherwise they indicated they would be happy to perform push enteroscopy on Friday if he remains hospitalized and was having recurrent bleeding. As the patient was hemodynamically stable and tolerating his diet with no nausea or vomiting or abdominal pain and was having no evidence of GI bleeding the patient was desiring to return home. He and his both were cautioned for signs and symptoms of recurrent GI bleeding which they are familiar with including melanotic stools or hematochezia or symptoms of worsening anemia such as fatigue dyspnea or lightheadedness. Advised if he shows symptoms of acute bleeding such as melanotic stools or hematochezia he should return to emergency room immediately. He should also return to emergency room if he has any chest pain or pressure or severe dyspnea. His weight on discharge was 78.5 kg. His atrial fibrillation rate was well controlled with heart rate in the 80s to 70s. Home Meds and New Rx's Prescriptions: New ferrous fyzxqau-A-ffarh acid 105 mg iron- 500 mg-800 mcg tablet extended release 1 tab PO DAILY Qty: 30 0RF Rx Instructions: administer on an empty stomach Continued clopidogrel [Plavix] 75 mg tablet 75 mg PO DAILY Farxiga 5 mg tablet 5 mg PO DAILY pantoprazole 40 mg tablet,delayed release (DR/EC) 40 mg PO DAILY Xarelto 20 mg tablet 20 mg PO DAILY Rx Instructions: must administer with evening meal tamsulosin 0.4 mg capsule 1 cap PO 1XD Label Comments: TAKE ONE CAPSULE BY MOUTH AT BEDTIME rosuvastatin 40 mg tablet 1 tab PO 1XD Label Comments: TAKE ONE TABLET BY MOUTH EVERY DAY multivitamin Tablet 1 tab PO DAILY calcium citrate 200 mg (950 mg) Tablet 200 mg PO DAILY carboxymethylcellulose sodium [Refresh Plus] 0.5 % Dropperette 3 drp ophthalmic (eye) TID PRN (Reason: Eye Irritation) sildenafil 100 mg Tablet 100 mg PO PRN PRN Changed metoprolol succinate 50 mg tablet extended release 24 hr 25 mg PO HS Qty: 0 0RF fluticasone propionate 50 mcg/actuation spray,suspension 1 spray intranasal BID PRN PRNQty: 0 0RF Rx Instructions: administer into each nostril Discontinued valsartan 40 mg tablet 20 mg PO BID Qty: 1 0RF Label Comments: TAKE ONE TABLET BY MOUTH TWICE A DAY Rx Instructions: take half tablet by mouth twice a day fluticasone propionate 50 mcg/actuation [place],Suspension 50 mcg INTRANASAL PRN PRN Discharge Instructions Instructions: Iron Deficiency Anemia (GEN), Angiodysplasia of the Gastrointestinal Tract (DC) Additional Instructions: discontinue your Valsartan (d/t abdominal complaints); Metoprolol dose has been decreased to 25 mg at bedtime. Begin iron supplement containing vitamin C and take daily w/ a meal. Resume your Rivaroxan (Xarelto) and Clopidogrel (Plavix) however monitor your stools for any bleeding. Get repeat CBC (blood count on Friday). It is recommended that your blood count be monitored weekly for the next 4 weeks until your blood counts have responded to the iron supplement. You should have a follow up w/ your GI (director of marketing analytics) specialist at [facility] to discuss further workup/treatment of your angioectasia of your bowels and your colon polyps. Return to the emergency room if any symptoms of acute gastrointestinal bleeding such as bloody red or tayo stools or black tarry appearing stools (iron may make your stools darker but your stools will not be tarry) or if you have severe lightheadedness, fainting or shortness of breath or chest or abdominal pains Stand Alone Forms: Nursing Discharge Form Referrals: Bobby Das [Primary Care Provider] - (call the office on Friday to set follow up in the next week) Activity:: Activity as Tolerated Equipment/Supplies:: No Equipment Needed Diet:: cardiac diet/low fat Discharge Orders Discharge Orders: Discharge Order (Routine); Ordered 08/17/22 Ordered By: Christopher Roberts Other Ambulatory Orders: Complete Blood Count w/Diff (Routine) Timeframe: 2 Days Facility: [facility] - Location: Laboratory Outpatient - [facility] Ordered By: Christopher Roberts DS: Summary Time Spent with Patient providing and/or coordinating discharge services: Greater than 30 minutes Specific discharge activities: Interview/exam of patient; review of discharge instructions, completion of prescriptions/discharge instructions; discussion w/ nursing and CM; documentation of hospital visit Status at Discharge Functional status at discharge: independent ambulation Overall status at discharge: patient is progressing back to baseline Mental Status: mental status grossly normal Speech and Movement: speech and movement normal Mood: congruent mood Affect: normal affect Exam Narrative Exam Narrative: Koko ate breakfast w/ no nausea or abdominal pains. No BM's. He says that last night he had some abdominal cramping pains after taking his valsartan (he says that he believes that he had the same reaction to this before and that this was why his PCP took him off his valsartan Abdomen: soft, nondistended and nontender Lungs: clear Heart: irregularly irregular; loud grade 4/6 systolic murmur over apex Psych Mental Status: mental status grossly normal Speech and Movement: speech and movement normal Mood: congruent mood Affect: normal affect DS: Data Vitals/I&O Vitals and I&O: Vital Signs Temperature 37 C 08/17/22 07:19 Temperature Source Tympanic 08/17/22 07:19 Pulse 85 08/17/22 07:19 Pulse Rhythm Irregular 08/17/22 03:18 Respiratory Rate 19 08/17/22 07:19 Respiratory Effort Non-Labored 08/17/22 03:18 Respiratory Depth Normal 08/17/22 03:18 Respiratory Pattern Normal 08/17/22 03:18 Blood Pressure 103/42 L 08/17/22 07:19 Pulse Oximetry 92 08/17/22 07:19 Oxygen Delivery Method Room Air 08/17/22 07:19 Oxygen Flow Rate 0 08/17/22 07:19 Pain Level 7 08/17/22 07:19 Intake & Output 08/16/22 08/16/22 08/17/22 11:59 23:59 11:59 Intake Total 213.333 / 1000.000 786.667 / 1000.000 Output Total 900 / 1550 650 / 1550 600 / 600 Balance -686.667 / -550.000 136.667 / -550.000 -600 / -600 Weight 78.5 kg Intake: IV 213.333 / 1000.000 786.667 / 1000.000 Blood Product 0 / 0 Rbc Leuko Reduced Unit 0 / 0 [id number] Output: Urine 900 / 1550 650 / 1550 600 / 600 Other: Urine Color Straw Yellow Yellow Urine Appearance Clear Clear Clear Urine Odor Normal Normal Strong Comment OOB to toilet unmeasured Voiding Methods Urinal Urinal Urinal Data Completed and Pending Labs on day of discharge: Labs from last 24 hours 08/17/22 08/17/22 05:21 05:21 WBC 7.35 RBC 3.01 L Hgb 7.8 L Hct 25.1 L MCV 83 MCH 25.9 L MCHC 31.1 L RDW 16.8 H Plt Count 218 MPV 10.3 Immature Gran % 0.3 Neutrophils % 61.5 Lymphocytes % 21.2 Monocytes % 13.9 Eosinophils % 2.6 Basophils % 0.5 Nucleated RBC % 0.0 Absolute Neutrophils 4.52 Absolute Lymphocytes 1.56 Absolute Monocytes 1.02 H Absolute Eosinophils 0.19 Absolute Basophils 0.04 Sodium 139 Potassium 3.4 L Chloride 106 Carbon Dioxide 24.6 Anion Gap 8.4 BUN 14 Creatinine 0.8 Est GFR (CKD-EPI 2020) 90.02 Glucose 118 H Calcium 8.5 PFSH All Active Problems (Updated 08/17/22 @ 09:43 by Christopher Roberts MD) Chronic blood loss anemia (Chronic) Dehydration (Acute) GI bleed (Chronic) CHF (congestive heart failure) (Chronic) CAD (coronary artery disease), [place] coronary artery (Chronic) Chronic atrial fibrillation (Chronic) ABLA (acute blood loss anemia) (Acute) Medical History Abnormal stool color Allergic rhinitis Aortic stenosis Cervical radiculopathy Elevated PSA Gastric ulcer with hemorrhage GERD (gastroesophageal reflux disease) Heart failure HLD (hyperlipidemia) Insufficiency of tear film of both eyes Malignant neoplasm of prostate Malignant neoplasm of skin Nicotine dependence Type 2 diabetes mellitus Surgical History H/O heart surgery History of tonsillectomy Family History Father Cancer Mother Cardiac pacemaker Diabetes Brother Hyperlipidemia Social History Smoking/Tobacco Use Status: Former Tobacco Use Quit Date: 05/10/22 Tobacco: How many years used: 62 Smoking risk assessment performed?: Yes Alcohol Intake: former Drug use: Never Substance use type: does not use Do you feel safe at home: Yes Do you feel safe in your relationship?: Yes
--- NOTE | 2022-08-17 10:12 | PDOC.CMDIS ---
- If Service Date Differs Date of service: 08/17/22 Time of Service: 10:12 LACE Index Scoring Tool - Questions: Length of Stay (in days): 2 Acuity (Admit via E.D.?): Yes Comorbidities: Diabetes w/o Complication, Congestive Heart Failure E.D. Visits: 4 - Answers: Total Score: 12 Risk of Readmission: High Risk Care Management Discharge Reason for Hospitalization: Anemia Discharge Plan: Koko is discharged home with no services. He will follow up with his PCP and discharge plan of care as prescribed. He is driven home by his via private vehicle. Patient/Family Education Needs: Review discharge instructions re medications, limitations and follow up plan; discuss Ask Me Three.
== END 2022-08-17 10:29 | disposition home or self-care (01) | DRG 812 ==
LOC: ER 18:16 → MS 20:04
PROVIDERS: Internal Medicine; Admitting Provider Family Medicine; Emergency Provider Emergency Medicine; PCP Family Medicine; Visit Provider Family Medicine
DX: D50.0 Iron deficiency anemia secondary to blood loss (chronic) (principal); I48.20 Chronic atrial fibrillation, unspecified; K92.2 Gastrointestinal hemorrhage, unspecified; E86.0 Dehydration; I50.9 Heart failure, unspecified; I25.10 Atherosclerotic heart disease of native coronary artery without angina pectoris; I35.0 Nonrheumatic aortic (valve) stenosis; M54.12 Radiculopathy, cervical region; K21.9 Gastro-esophageal reflux disease without esophagitis; I73.9 Peripheral vascular disease, unspecified; E11.9 Type 2 diabetes mellitus without complications; Z85.46 Personal history of malignant neoplasm of prostate; Z87.891 Personal history of nicotine dependence; Z79.01 Long term (current) use of anticoagulants; Z95.5 Presence of coronary angioplasty implant and graft; I25.2 Old myocardial infarction; Z86.718 Personal history of other venous thrombosis and embolism; Z86.010 Personal history of colon polyps
CPT/HCPCS: 36415; 80048; 80053; 86850; 86900; 86901; 86920; 87635; 99285; 83735; 85014; 85018; 85025; 85610; 85730; 99223; 99232; 99239; J3490; P9016

== ENCOUNTER 2022-08-19 11:43 | Outpatient (CLI) | payer MEDICARE, SELFPAY ==
[2022-08-19 09:59] LABS: Abs Immature Grans 0.03 10^3/uL (0.0-0.06); Absolute Basophil Count 0.04 10^3/uL (0.0-0.2); Absolute Eosinophil Count 0.28 10^3/uL (0.0-0.7); Absolute Lymphocyte Count 1.31 10^3/uL (1.2-3.4); Absolute Monocyte Count 0.98 10^3/uL (0.1-0.8); Absolute Neutrophil Count 4.29 10^3/uL (1.2-6.7); Basophils % 0.6; HCT 30.5 % (40.0-50.0); HGB 9.5 g/dL (13.5-17.5); Immature Grans % 0.4; Lymphocytes % 18.9; MCHC 31.1 % (32.0-36.0); MCV 84 fL (80-95); MPV 10.4 fL (8.0-11.0); Monocytes % 14.1; Platelet Count 262 10^3/uL (130-400); RBC 3.65 10^6/uL (4.36-5.78); RDW 17.2 % (11.8-14.1); RDW-SD 53.3 fL; WBC 6.93 10^3/uL (4.4-10.8)
== END 2022-08-19 11:44 | disposition home or self-care (01) ==
LOC: LBO 11:50
PROVIDERS: PCP Family Medicine; Visit Provider Internal Medicine
DX: D50.0 Iron deficiency anemia secondary to blood loss (chronic) (principal)
CPT/HCPCS: 36415; 85025

== ENCOUNTER 2022-08-26 12:52 | Outpatient (CLI) | payer MEDICARE, SELFPAY ==
[2022-08-26 11:53] LABS: Abs Immature Grans 0.02 10^3/uL (0.0-0.06); Absolute Basophil Count 0.06 10^3/uL (0.0-0.2); Absolute Eosinophil Count 0.22 10^3/uL (0.0-0.7); Absolute Lymphocyte Count 1.62 10^3/uL (1.2-3.4); Absolute Monocyte Count 0.84 10^3/uL (0.1-0.8); Absolute Neutrophil Count 3.41 10^3/uL (1.2-6.7); Eosinophils % 3.6; HCT 30.3 % (40.0-50.0); Immature Grans % 0.3; Lymphocytes % 26.3; MCH 24.9 pg (27.0-33.0); MCHC 29.7 % (32.0-36.0); MCV 84 fL (80-95); Monocytes % 13.6; Neutrophils % 55.2; Platelet Count 298 10^3/uL (130-400); RBC 3.61 10^6/uL (4.36-5.78); WBC 6.17 10^3/uL (4.4-10.8)
== END 2022-08-26 12:53 | disposition home or self-care (01) ==
LOC: LBO 13:07
PROVIDERS: PCP Family Medicine; Visit Provider Family Medicine
DX: D64.9 Anemia, unspecified (principal)
CPT/HCPCS: 36415; 85025

== ENCOUNTER 2022-09-02 02:42 | Outpatient (CLI) | payer MEDICARE, SELFPAY ==
[2022-09-02 12:28] LABS: Abs Immature Grans 0.03 10^3/uL (0.0-0.06); Absolute Basophil Count 0.07 10^3/uL (0.0-0.2); Absolute Eosinophil Count 0.24 10^3/uL (0.0-0.7); Absolute Lymphocyte Count 1.49 10^3/uL (1.2-3.4); Absolute Monocyte Count 0.87 10^3/uL (0.1-0.8); Absolute Neutrophil Count 4.42 10^3/uL (1.2-6.7); Eosinophils % 3.4; HCT 29.1 % (40.0-50.0); HGB 8.8 g/dL (13.5-17.5); Immature Grans % 0.4; Lymphocytes % 20.9; MCH 25.3 pg (27.0-33.0); MCHC 30.2 % (32.0-36.0); MCV 84 fL (80-95); MPV 9.4 fL (8.0-11.0); Monocytes % 12.2; Neutrophils % 62.1; Platelet Count 324 10^3/uL (130-400); RBC 3.48 10^6/uL (4.36-5.78); RDW 17.6 % (11.8-14.1); RDW-SD 53.6 fL; WBC 7.12 10^3/uL (4.4-10.8)
== END 2022-09-02 02:43 | disposition home or self-care (01) ==
LOC: LBO 02:44
PROVIDERS: PCP Family Medicine; Visit Provider Family Medicine
DX: D64.9 Anemia, unspecified (principal); I42.9 Cardiomyopathy, unspecified; I35.0 Nonrheumatic aortic (valve) stenosis; Z98.890 Other specified postprocedural states; I25.10 Atherosclerotic heart disease of native coronary artery without angina pectoris; R60.0 Localized edema; Z95.818 Presence of other cardiac implants and grafts
CPT/HCPCS: 36415; 93005; 99204; 99215; 85025

== ENCOUNTER 2022-09-02 08:44 | Outpatient (CLI) | payer MEDICARE, SELFPAY ==
--- NOTE | 2022-09-02 08:30 | RT.EKG_ITS ---
APPROVED REPORT Exam: Resting ECG Reason for Exam: afib Patient Location: O HR:91 bpm ECG Measurements Heart Rate 91 AXIS VA [id number] P [id number] QRSd 120 QRS -44 QT 385 T 52 QTc 474 Conclusion Atrial fibrillation...V-rate 71-112, irreg A-activity Left anterior fascicular block...axis(240,-40), init forces inf Nonspecific T abnormalities, lateral leads...T <-0.10mV, I aVL V5 V6 Poor R wave progression
== END 2022-09-02 08:45 | disposition home or self-care (01) ==
LOC: DI.CARD 08:45
PROVIDERS: PCP Family Medicine; Visit Provider Internal Medicine Cardiovascular Disease
DX: I25.10 Atherosclerotic heart disease of native coronary artery without angina pectoris (principal); I48.20 Chronic atrial fibrillation, unspecified; R94.31 Abnormal electrocardiogram [ECG] [EKG]
CPT/HCPCS: 93010

== ENCOUNTER 2022-09-09 11:44 | Outpatient (CLI) | payer MEDICARE, SELFPAY ==
[2022-09-09 11:50] LABS: Abs Immature Grans 0.02 10^3/uL (0.0-0.06); Absolute Basophil Count 0.08 10^3/uL (0.0-0.2); Absolute Eosinophil Count 0.22 10^3/uL (0.0-0.7); Absolute Lymphocyte Count 1.93 10^3/uL (1.2-3.4); Absolute Monocyte Count 0.76 10^3/uL (0.1-0.8); Absolute Neutrophil Count 4.42 10^3/uL (1.2-6.7); Basophils % 1.1; HCT 29.8 % (40.0-50.0); Immature Grans % 0.3; MCHC 30.2 % (32.0-36.0); MCV 83 fL (80-95); MPV 10.1 fL (8.0-11.0); Monocytes % 10.2; Neutrophils % 59.4; Platelet Count 309 10^3/uL (130-400); RDW 17.6 % (11.8-14.1); WBC 7.43 10^3/uL (4.4-10.8)
== END 2022-09-09 11:45 | disposition home or self-care (01) ==
LOC: LBO 11:46
PROVIDERS: PCP Family Medicine; Visit Provider Family Medicine
DX: D64.9 Anemia, unspecified (principal)
CPT/HCPCS: 36415; 85025

== ENCOUNTER 2022-09-23 11:03 | Outpatient (CLI) | payer MEDICARE, SELFPAY ==
[2022-09-23 12:06] LABS: Abs Immature Grans 0.04 10^3/uL (0.0-0.06); Absolute Basophil Count 0.05 10^3/uL (0.0-0.2); Absolute Eosinophil Count 0.25 10^3/uL (0.0-0.7); Absolute Monocyte Count 0.97 10^3/uL (0.1-0.8); Absolute Neutrophil Count 4.43 10^3/uL (1.2-6.7); Basophils % 0.6; Eosinophils % 3.1; HCT 27.7 % (40.0-50.0); HGB 8.1 g/dL (13.5-17.5); Immature Grans % 0.5; Lymphocytes % 28.6; MCH 24.5 pg (27.0-33.0); MCHC 29.2 % (32.0-36.0); MCV 84 fL (80-95); Monocytes % 12.1; Neutrophils % 55.1; Platelet Count 217 10^3/uL (130-400); RDW 18.6 % (11.8-14.1); RDW-SD 57.2 fL; WBC 8.04 10^3/uL (4.4-10.8)
== END 2022-09-23 11:04 | disposition home or self-care (01) ==
LOC: LBO 11:05
PROVIDERS: PCP Family Medicine; Visit Provider Family Medicine
DX: I48.20 Chronic atrial fibrillation, unspecified (principal); Z79.01 Long term (current) use of anticoagulants; I25.10 Atherosclerotic heart disease of native coronary artery without angina pectoris
CPT/HCPCS: 36415; 85025

== ENCOUNTER 2022-09-30 03:05 | Outpatient (CLI) | payer MEDICARE, SELFPAY ==
[2022-09-30 08:50] LABS: Abs Immature Grans 0.03 10^3/uL (0.0-0.06); Absolute Basophil Count 0.05 10^3/uL (0.0-0.2); Absolute Eosinophil Count 0.17 10^3/uL (0.0-0.7); Absolute Lymphocyte Count 1.86 10^3/uL (1.2-3.4); Absolute Monocyte Count 0.77 10^3/uL (0.1-0.8); Absolute Neutrophil Count 3.01 10^3/uL (1.2-6.7); Basophils % 0.8; Eosinophils % 2.9; HCT 27.9 % (40.0-50.0); HGB 8.2 g/dL (13.5-17.5); Immature Grans % 0.5; Lymphocytes % 31.6; MCH 24.6 pg (27.0-33.0); MCHC 29.4 % (32.0-36.0); MCV 84 fL (80-95); MPV 10.1 fL (8.0-11.0); Monocytes % 13.1; Neutrophils % 51.1; Platelet Count 220 10^3/uL (130-400); RBC 3.33 10^6/uL (4.36-5.78); RDW 18.8 % (11.8-14.1); WBC 5.89 10^3/uL (4.4-10.8)
== END 2022-09-30 03:06 | disposition home or self-care (01) ==
PROVIDERS: PCP Family Medicine; Visit Provider Family Medicine
DX: D64.9 Anemia, unspecified (principal)
CPT/HCPCS: 36415; 85025

== ENCOUNTER 2022-09-30 09:00 | Outpatient (RCR) | payer MEDICARE, SELFPAY | END 2022-10-09 23:59 | disposition home or self-care (01) | LOC: CR 09:00 | PROVIDERS: PCP Family Medicine; Visit Provider Internal Medicine Cardiovascular Disease | DX: Z95.2 Presence of prosthetic heart valve (principal); Z51.89 Encounter for other specified aftercare | CPT/HCPCS: S9472 ==

== ENCOUNTER 2022-10-02 18:57 | Emergency (ER) | payer MEDICARE, SELFPAY ==
[2022-10-02 19:22] VITALS: BP 103/53; PULSE 66; RESP 16; TEMP 37; O2SAT 98
--- NOTE | 2022-10-02 20:06 | ED.GENADUL_ITS ---
Discharge Plan Disposition Patient Disposition: Home Condition: Improving Discharge Details Clinical Impression: Hemorrhage of eyelid Primary Care Provider: Bobby Das ED Provider: Trenton Gross Home Meds and New Rx's Prescriptions: Continued Xarelto 20 mg tablet 20 mg PO DAILY Rx Instructions: must administer with evening meal clopidogrel [Plavix] 75 mg tablet 75 mg PO DAILY metoprolol succinate 50 mg tablet extended release 24 hr 25 mg PO BID Qty: 180 3RF tamsulosin 0.4 mg capsule 1 cap PO 1XD Label Comments: TAKE ONE CAPSULE BY MOUTH AT BEDTIME rosuvastatin 40 mg tablet 1 tab PO 1XD Label Comments: TAKE ONE TABLET BY MOUTH EVERY DAY multivitamin Tablet 1 tab PO DAILY calcium citrate 200 mg (950 mg) Tablet 200 mg PO DAILY carboxymethylcellulose sodium [Refresh Plus] 0.5 % Dropperette 3 drp ophthalmic (eye) TID PRN (Reason: Eye Irritation) sildenafil 100 mg Tablet 100 mg PO PRN PRN ferrous bynmfpi-[id number]-qbfmm acid 105 mg iron- 500 mg-800 mcg tablet extended release 1 tab PO DAILY Qty: 30 0RF Rx Instructions: administer on an empty stomach fluticasone propionate 50 mcg/actuation spray,suspension 1 spray intranasal BID PRN PRNQty: 0 0RF Rx Instructions: administer into each nostril Discharge Instructions Additional Instructions: Leave over dressing in place overnight. You may remove and leave the bandages in place until you are seen by for postoperative check. May use provided oxycodone 1 tablet every 6 hours as needed for severe or breakthrough pain. No alcohol or driving with this medication. You may also use Tylenol as needed for discomfort. Medical Decision Making 82-year-old male who underwent Mohs surgery today on his nose and right lateral eyebrow for basal cell carcinoma. He developed some postoperative bleeding this evening at home and increasing pain. He has been taking Tylenol with minimal effect on the pain. Surgicel was applied to the area of the at the wound edge and secured with Steri-Strips and a bandage covering. Hemostasis was achieved with this. Patient was consented for the use of a small number of oxycodone given his postoperative pain. He will follow-up with Dr. Mathews for postoperative check. He is stable and improved. Sign Out No HPI General Mode of arrival: ambulatory . Date/Time Provider Initiated Documentation: 10/02/22 19:25 . Limitations to Documentation: no limitations . Information obtained by: patient . History of Present Illness 82 year old M presents to the emergency department with the chief complaint of Postoperative bleeding right eyelid, described as mild, Quality is described as dull, and is localized to the face. Patient started experiencing this hour(s) and it has been intermittent. No relieving factors improve symptom(s), No exacerbating factors reported . Patient notes denies headaches and nausea/vomiting. Patient did receive the following treatments prior to arrival, none Related Data Home Medications Medication Instructions Recorded Confirmed rosuvastatin 40 mg tablet 1 tab PO 1XD 05/15/22 09/02/22 tamsulosin 0.4 mg capsule 1 cap PO 1XD 05/15/22 09/02/22 clopidogrel 75 mg tablet (Plavix) 75 mg PO DAILY 06/14/22 09/02/22 calcium citrate 200 mg (950 mg) 200 mg PO DAILY 06/23/22 09/02/22 tablet carboxymethylcellulose sodium 0.5 3 drp ophthalmic (eye) TID PRN Eye 06/23/22 09/02/22 % eye drops in a dropperette Irritation (Refresh Plus) multivitamin 1 tab PO DAILY 06/23/22 09/02/22 sildenafil 100 mg tablet 100 mg PO PRN PRN 08/15/22 09/02/22 ferrous sulfate 105 mg-C 500 1 tab PO DAILY #30 tabs 08/17/22 09/02/22 mg-folic acid 800 mcg tablet,extend.rel fluticasone propionate 50 1 spray intranasal BID PRN PRN #0 08/17/22 09/02/22 mcg/actuation nasal grams spray,suspension rivaroxaban 20 mg tablet (Xarelto) 20 mg PO DAILY 09/02/22 09/02/22 metoprolol succinate 50 mg 25 mg PO BID #180 tabs 09/30/22 tablet,extended release 24 hr Previous Rx's Medication Instructions Recorded ferrous sulfate 105 mg-C 500 1 tab PO DAILY #30 tabs 08/17/22 mg-folic acid 800 mcg tablet,extend.rel fluticasone propionate 50 1 spray intranasal BID PRN PRN #0 08/17/22 mcg/actuation nasal grams spray,suspension metoprolol succinate 50 mg 25 mg PO BID #180 tabs 11/21/22 tablet,extended release 24 hr Allergies Allergy/AdvReac Type Severity Reaction Status Date / Time aspirin AdvReac Mild GI Bleeding Verified 09/02/22 11:29 General Stated Complaint: EyeProblem MÓNICA: 3 Review of Systems Narrative: No other complaints. PFSH All Active Problems (Updated 10/02/22 @ 20:11 by Trenton Gross MD) Hemorrhage of eyelid (Acute) History of mitral valve repair (Acute) Cardiomyopathy (Acute) Chronic blood loss anemia (Chronic) CHF (congestive heart failure) (Chronic) CAD (coronary artery disease), [place] coronary artery (Chronic) Chronic atrial fibrillation (Chronic) Medical History Abnormal stool color Allergic rhinitis Aortic stenosis Cervical radiculopathy Elevated PSA Gastric ulcer with hemorrhage GERD (gastroesophageal reflux disease) Heart failure HLD (hyperlipidemia) Insufficiency of tear film of both eyes Malignant neoplasm of prostate Malignant neoplasm of skin Nicotine dependence Type 2 diabetes mellitus Surgical History H/O heart surgery History of tonsillectomy Family History Father Cancer Mother Cardiac pacemaker Diabetes Brother Hyperlipidemia Social History Smoking/Tobacco Use Status: Former Tobacco Use Quit Date: 05/10/22 Tobacco: How many years used: 62 Smoking risk assessment performed?: Yes Alcohol Intake: former Drug use: Never Substance use type: does not use current occupation: retired What is your relationship status?: Panel score (0-1 are the most socially isolated patients): 1 What type of physical activity do you participate in: walking Do you feel safe at home: Yes Do you feel safe in your relationship?: Yes Exam Narrative Exam Narrative: GEN: awake, alert, oriented 3. Pleasant, well groomed, interactive. HEAD: Normocephalic, atraumatic ENT: Mucous membranes moist, oropharynx unremarkable, the right lateral upper eyelid has some scant oozing from the edge of the surgical dressing. External ear exam unremarkable EYES: PERRL, EOMI NECK: Full ROM, no HAIR, no menigismus CHEST/RESP: No respiratory distress EXT: Full ROM, no edema, no rash Neuro: Grossly normal neurologic exam, conversant, interactive. Psych: Speech fluent, thoughts congruent, affect normal Course Vital Signs Vital signs: Vital Signs Temperature 37.0 C 10/02/22 19:22 Pulse 66 10/02/22 19:22 Respiratory Rate 16 10/02/22 19:22 Blood Pressure 103/53 L 10/02/22 19:22 Pulse Oximetry 98 10/02/22 19:22 Temperature 37.0 C 10/02/22 19:22 Temperature Source Oral 10/02/22 19:22 Pulse 66 10/02/22 19:22 Respiratory Rate 16 10/02/22 19:22 Respiratory Effort Non-Labored 10/02/22 19:26 Blood Pressure 103/53 L 10/02/22 19:22 Blood Pressure Position Sitting 10/02/22 19:22 Pulse Oximetry 98 10/02/22 19:22 Oxygen Delivery Method Room Air 10/02/22 19:22 Oxygen Flow Rate 0 10/02/22 19:22 Pain Level 9 10/02/22 19:22
[2022-10-02] MEDS: Cellulose,Oxidized 2X3 PKT 1 EACH MC (20:22)
[2022-10-02] MEDS: Silver Nitrate Stick 2 EACH TP (20:22)
[2022-10-02] MEDS: Gelatin SPONGE 12-7 MM PKT 1 EACH TP (20:22)
== END 2022-10-02 20:32 | disposition home or self-care (01) ==
PROVIDERS: Emergency Provider Emergency Medicine; PCP Family Medicine
DX: H59.321 Postprocedural hemorrhage of right eye and adnexa following other procedure (principal); I50.9 Heart failure, unspecified; E11.9 Type 2 diabetes mellitus without complications; E78.5 Hyperlipidemia, unspecified; Z85.46 Personal history of malignant neoplasm of prostate; Z85.828 Personal history of other malignant neoplasm of skin; Z87.891 Personal history of nicotine dependence
CPT/HCPCS: 99283; 99284

== ENCOUNTER 2022-10-07 12:08 | Outpatient (CLI) | payer MEDICARE, SELFPAY ==
[2022-10-07 09:43] LABS: Abs Immature Grans 0.01 10^3/uL (0.0-0.06); Absolute Basophil Count 0.04 10^3/uL (0.0-0.2); Absolute Eosinophil Count 0.14 10^3/uL (0.0-0.7); Absolute Monocyte Count 0.54 10^3/uL (0.1-0.8); Absolute Neutrophil Count 2.71 10^3/uL (1.2-6.7); Basophils % 0.8; Eosinophils % 2.9; HGB 8.6 g/dL (13.5-17.5); Immature Grans % 0.2; Lymphocytes % 28.9; MCH 24.9 pg (27.0-33.0); MCHC 30.7 % (32.0-36.0); MCV 81 fL (80-95); MPV 10.2 fL (8.0-11.0); Monocytes % 11.2; Platelet Count 228 10^3/uL (130-400); RBC 3.45 10^6/uL (4.36-5.78); RDW 18.4 % (11.8-14.1); RDW-SD 54.4 fL; WBC 4.84 10^3/uL (4.4-10.8)
== END 2022-10-07 12:09 | disposition home or self-care (01) ==
LOC: LBO 12:09
PROVIDERS: PCP Family Medicine; Visit Provider Family Medicine
DX: D64.9 Anemia, unspecified (principal)
CPT/HCPCS: 36415; 85025

== ENCOUNTER 2022-10-14 04:12 | Outpatient (CLI) | payer MEDICARE, SELFPAY ==
[2022-10-14 10:47] LABS: Abs Immature Grans 0.02 10^3/uL (0.0-0.06); Absolute Basophil Count 0.04 10^3/uL (0.0-0.2); Absolute Eosinophil Count 0.16 10^3/uL (0.0-0.7); Absolute Lymphocyte Count 1.52 10^3/uL (1.2-3.4); Absolute Monocyte Count 0.68 10^3/uL (0.1-0.8); Absolute Neutrophil Count 3.71 10^3/uL (1.2-6.7); Basophils % 0.7; Eosinophils % 2.6; HGB 8.6 g/dL (13.5-17.5); Immature Grans % 0.3; Lymphocytes % 24.8; MCH 24.2 pg (27.0-33.0); MCHC 29.7 % (32.0-36.0); MCV 82 fL (80-95); MPV 9.8 fL (8.0-11.0); Monocytes % 11.1; Neutrophils % 60.5; Platelet Count 206 10^3/uL (130-400); RBC 3.56 10^6/uL (4.36-5.78); RDW 18.1 % (11.8-14.1); RDW-SD 54.1 fL; WBC 6.13 10^3/uL (4.4-10.8)
[2022-10-14 11:09] LABS: Diff Comment Diff Reviewed
[2022-10-14 11:10] LABS: RBC Morphology Normal
== END 2022-10-14 04:13 | disposition home or self-care (01) ==
LOC: LBO 04:12
PROVIDERS: PCP Family Medicine; Visit Provider Family Medicine
DX: D64.9 Anemia, unspecified (principal)
CPT/HCPCS: 36415; 85025

== ENCOUNTER 2022-11-08 03:08 | Outpatient (CLI) | payer MEDICARE, SELFPAY ==
[2022-11-08 10:25] LABS: Abs Immature Grans 0.02 10^3/uL (0.0-0.06); Absolute Basophil Count 0.05 10^3/uL (0.0-0.2); Absolute Eosinophil Count 0.13 10^3/uL (0.0-0.7); Absolute Lymphocyte Count 1.58 10^3/uL (1.2-3.4); Absolute Monocyte Count 0.71 10^3/uL (0.1-0.8); Absolute Neutrophil Count 3.61 10^3/uL (1.2-6.7); Basophils % 0.8; Eosinophils % 2.1; HCT 31.5 % (40.0-50.0); HGB 9.3 g/dL (13.5-17.5); Immature Grans % 0.3; Lymphocytes % 25.9; MCH 24.1 pg (27.0-33.0); MCHC 29.5 % (32.0-36.0); MCV 82 fL (80-95); MPV 10.5 fL (8.0-11.0); Monocytes % 11.6; Neutrophils % 59.3; Platelet Count 194 10^3/uL (130-400); RBC 3.86 10^6/uL (4.36-5.78); RDW 18.8 % (11.8-14.1); RDW-SD 56.1 fL
== END 2022-11-08 03:09 | disposition home or self-care (01) ==
LOC: LBO 03:09
PROVIDERS: PCP Family Medicine; Visit Provider Family Medicine
DX: D64.9 Anemia, unspecified (principal)
CPT/HCPCS: 36415; 85025

== ENCOUNTER 2022-11-08 09:48 | Outpatient (RCR) | payer MEDICARE, SELFPAY | END 2022-11-09 23:59 | disposition home or self-care (01) | LOC: CR 09:48 | PROVIDERS: PCP Family Medicine; Visit Provider Internal Medicine Cardiovascular Disease | DX: Z95.5 Presence of coronary angioplasty implant and graft (principal); Z51.89 Encounter for other specified aftercare | CPT/HCPCS: S9472 ==

== ENCOUNTER → 2022-12-02 10:55 | Outpatient (BNVA) | payer MEDICARE, SELFPAY | PROVIDERS: PCP Family Medicine; Referring Provider Family Medicine; Visit Provider Internal Medicine Cardiovascular Disease | DX: I25.10 Atherosclerotic heart disease of native coronary artery without angina pectoris (principal); I42.9 Cardiomyopathy, unspecified; I48.21 Permanent atrial fibrillation; I35.0 Nonrheumatic aortic (valve) stenosis; R60.0 Localized edema; Z95.5 Presence of coronary angioplasty implant and graft | CPT/HCPCS: 99214 ==

== ENCOUNTER 2022-12-06 13:50 | Outpatient (RCR) | payer MEDICARE, SELFPAY | END 2022-12-10 23:59 | disposition home or self-care (01) | LOC: CR 13:50 | PROVIDERS: PCP Family Medicine; Visit Provider Internal Medicine Cardiovascular Disease | DX: Z95.5 Presence of coronary angioplasty implant and graft (principal); Z51.89 Encounter for other specified aftercare | CPT/HCPCS: S9472 ==

== ENCOUNTER 2022-12-08 08:04 | Emergency (ER) | payer MEDICARE, SELFPAY ==
[2022-12-08] VITALS (70 sets, daily range): BP systolic 80–130; BP diastolic 38–80; PULSE 64–104; RESP 9–25; TEMP 36.5–37.2; O2SAT 91–100
--- NOTE | 2022-12-08 08:00 | RT.EKG_ITS ---
APPROVED REPORT Exam: Resting ECG Reason for Exam: weakness Patient Location: E HR:76 bpm ECG Measurements Heart Rate 76 AXIS TX [id number] P [id number] QRSd 120 QRS -48 QT 445 T 43 QTc 501 Conclusion Atrial fibrillation...V-rate 66- 95, irreg A-activity Left anterior fascicular block...axis(240,-40), init forces inf
[2022-12-08 08:29] LABS: Abs Immature Grans 0.03 10^3/uL (0.0-0.06); Absolute Basophil Count 0.04 10^3/uL (0.0-0.2); Absolute Eosinophil Count 0.15 10^3/uL (0.0-0.7); Absolute Lymphocyte Count 1.59 10^3/uL (1.2-3.4); Absolute Monocyte Count 0.74 10^3/uL (0.1-0.8); Absolute Neutrophil Count 3.91 10^3/uL (1.2-6.7); Basophils % 0.6; Eosinophils % 2.3; HCT 26.7 % (40.0-50.0); HGB 7.9 g/dL (13.5-17.5); Immature Grans % 0.5; Lymphocytes % 24.6; MCH 26.1 pg (27.0-33.0); MCHC 29.6 % (32.0-36.0); MCV 88 fL (80-95); MPV 10.5 fL (8.0-11.0); Monocytes % 11.5; Neutrophils % 60.5; Platelet Count 204 10^3/uL (130-400); RBC 3.03 10^6/uL (4.36-5.78); RDW 21.9 % (11.8-14.1); RDW-SD 70.4 fL; WBC 6.46 10^3/uL (4.4-10.8)
[2022-12-08 08:46] LABS: ALT 27 U/L (16-63); AST 19 U/L (15-37); Albumin 3.7 g/dL (3.4-5.0); Alkaline Phosphatase 98 U/L (46-116); BUN 22 mg/dL (7-18); Bilirubin, Total 0.4 mg/dL (0.2-1.0); CREATININE 1.1 mg/dL (0.70-1.30); Calcium 8.9 mg/dL (8.5-10.1); Chloride 107 mmol/L (98-107); Estimated GFR 67.86 (mL/min/1.73m2); Glucose 245 mg/dL (74-106); Sodium 142 mmol/L (136-145); Total Protein 7.1 g/dL (6.4-8.2); Troponin I < 50 ng/L (<or=60)
[2022-12-08 08:54] LABS: Anisocytosis 2+; Diff Comment RBC Morph Reviewed; Hypochromasia 1+; Poikilocytes 1+; Polychromasia Present
--- NOTE | 2022-12-08 09:30 | DI.RAD_ITS ---
Exam(s) XR PORTABLE CHEST AP EXAM: XR PORTABLE CHEST AP CLINICAL HISTORY: rectal bleeeding TECHNIQUE: 2D digital imaging was performed. COMPARISON: CT CT CHEST WO from 05/07/2022 CR XR PORTABLE CHEST AP from 05/15/2022 FINDINGS: Leads overlie the chest. LUNGS: Suboptimal pulmonary inflation. Chronic interstitial changes. No gross focal infiltrate. No pleural abnormality seen. HEART: Enlarged. Status post CABG. AORTA: Normal diameter. Calcification at the aortic arch. BONES: Sternal wires. High-density in mid to lower thoracic spine consistent with vertebroplasty. Soft tissues: Unremarkable. IMPRESSION: No acute findings. DATA REPOSITORY: RADIATION DOSE DELIVERED:
[2022-12-08] MEDS: Pantoprazole 40 MG VIAL IVP (09:42)
--- NOTE | 2022-12-08 10:09 | DI.VRAD_ITS ---
PROCEDURE INFORMATION: Exam: XR Chest Exam date and time: 12/08/2022 9:42 AM Age: 82 years old Clinical indication: Other: Rectal bleeeding TECHNIQUE: Imaging protocol: Radiologic exam of the chest. Views: 1 view. COMPARISON: CR XR PORTABLE CHEST AP 05/15/2022 8:52 AM FINDINGS: Lungs: Streaky bibasilar opacities that favor atelectasis. Pleural spaces: No definite pleural effusion. No pneumothorax. Newly no acute osseous findings. Heart/Mediastinum: Mild cardiomegaly, unchanged. Mediastinal clips. Vasculature: Atherosclerotic calcifications of the aorta. Bones/joints: Median sternotomy wires. IMPRESSION: Patchy bibasilar atelectasis. Dictated and Authenticated by: Etta Gonzales MD. Ordering:XAVI Platt MD
[2022-12-08] MEDS: PANTOPRAZOLE 80 MG in Normal Saline 100 ML 10 MG IV (10:53)
--- NOTE | 2022-12-08 10:54 | W.ED.GENAD ---
Discharge Plan Disposition Patient Disposition: Transfer-Acute Inpatient Care Specific Acute Inpt Facility: [facility] Discharge Details Clinical Impression: Acute GI bleeding, Chronic atrial fibrillation, CAD (coronary artery disease), [place] coronary artery, Anemia Primary Care Provider: Bobby Das ED Provider: Giulia Xavier Home Meds and New Rx's Prescriptions: No Action Xarelto 20 mg tablet 20 mg PO DAILY Rx Instructions: must administer with evening meal ferrous sulfate [FeroSul] 325 mg (65 mg iron) tablet 325 mg PO TID clopidogrel [Plavix] 75 mg tablet 75 mg PO DAILY metoprolol succinate 50 mg tablet extended release 24 hr 25 mg PO BID Qty: 180 3RF tamsulosin 0.4 mg capsule 1 cap PO 1XD Label Comments: TAKE ONE CAPSULE BY MOUTH AT BEDTIME rosuvastatin 40 mg tablet 1 tab PO 1XD Label Comments: TAKE ONE TABLET BY MOUTH EVERY DAY multivitamin Tablet 1 tab PO DAILY calcium citrate 200 mg (950 mg) Tablet 200 mg PO DAILY carboxymethylcellulose sodium [Refresh Plus] 0.5 % Dropperette 3 drp ophthalmic (eye) TID PRN (Reason: Eye Irritation) sildenafil 100 mg Tablet 100 mg PO PRN PRN fluticasone propionate 50 mcg/actuation spray,suspension 1 spray intranasal BID PRN PRNQty: 0 0RF Rx Instructions: administer into each nostril Discharge Data Discharge Date/Time-TO BE ENTERED AT DEPARTURE: 12/08/22 15:13 Medical Decision Making This 82-year-old male presents with rectal bleeding that began last night, complex medical history with chronic anticoagulation secondary to multiple comorbidities including atrial fibrillation, recent thrombectomy to left lower extremity and subsequent stent placement for coronary artery disease and non-ST elevation [place] with recurrent GI bleed, last of which was in August of this year, patient was in queue to be transferred to [facility] but secondary to capacity did have resolution of bleeding eventually and was sent home encouraged to follow-up close outpatient reassessment Patient initially was hypotensive, secondary to this he did receive 1 unit of blood second unit is known to Initial CBC with hemoglobin of 7.9, decreased from 9.3 Fully alert and oriented and blood pressure 107/90 on reassessment Received Protonix IV 40 mg and infusion No history of varices, history of AVM of the duodenum as evidenced by endoscopy in June of last year Will remain n.p.o., did not take morning meds Rate controlled atrial fibrillation at this time and remainder of labs appear stable for patient Case was discussed with Dr. RAZO, commercial parts professional at [facility] who will accept patient to stepdown for endoscopy for further assessment of bleeding secondary to high risk associated with reversing patient's anticoagulation Case was discussed with our surgeon, Dr. Castillo who does not feel comfortable given patient's AVM performing endoscopy at this facility with his comorbidities and [facility] is willing to accept this patient in transfer, he is now hemodynamically stable, fully alert and oriented, transfusion consent obtained Pending transfer [facility] at this time, accepting physician is Dr. Padilla FUll code status HPI General Date/Time Provider Initiated Documentation: 12/08/22 08:09. HPI Narrative: This 82-year-old male presents with reports of rectal bleeding which started in the evening yesterday. Patient states he woke up numerous times during the night with bright red blood per rectum without stool. He states that he has had several episodes since being started on Xarelto and Plavix in May. He is status post left lower extremity thrombectomy, stent placement for non-STEMI in May, atrial fibrillation. Last year he bleed was in August and aspirin was removed from his regimen at that time. Secondary to comorbidities of recent stent placements Xarelto was not removed from his medication history and he was not reportedly reversed at that time. Denies any weakness or dizziness. He denies any nausea or vomiting. He denies any chest pain or shortness of breath. He denies any falls or injuries. He has not taken his morning meds today. Related Data Home Medications Medication Instructions Recorded Confirmed rosuvastatin 40 mg tablet 1 tab PO 1XD 05/15/22 12/02/22 tamsulosin 0.4 mg capsule 1 cap PO 1XD 05/15/22 12/08/22 clopidogrel 75 mg tablet (Plavix) 75 mg PO DAILY 06/14/22 12/08/22 calcium citrate 200 mg (950 mg) 200 mg PO DAILY 06/23/22 12/08/22 tablet carboxymethylcellulose sodium 0.5 3 drp ophthalmic (eye) TID PRN Eye 06/23/22 12/02/22 % eye drops in a dropperette Irritation (Refresh Plus) multivitamin 1 tab PO DAILY 06/23/22 12/08/22 sildenafil 100 mg tablet 100 mg PO PRN PRN 08/15/22 12/02/22 fluticasone propionate 50 1 spray intranasal BID PRN PRN #0 08/17/22 12/02/22 mcg/actuation nasal grams spray,suspension rivaroxaban 20 mg tablet (Xarelto) 20 mg PO DAILY 09/02/22 12/08/22 metoprolol succinate 50 mg 25 mg PO BID #180 tabs 09/30/22 12/08/22 tablet,extended release 24 hr ferrous sulfate 325 mg (65 mg 325 mg PO TID 12/02/22 12/08/22 iron) tablet (FeroSul) Previous Rx's Medication Instructions Recorded fluticasone propionate 50 1 spray intranasal BID PRN PRN #0 08/17/22 mcg/actuation nasal grams spray,suspension metoprolol succinate 50 mg 25 mg PO BID #180 tabs 09/30/22 tablet,extended release 24 hr Allergies Allergy/AdvReac Type Severity Reaction Status Date / Time aspirin AdvReac Mild GI Bleeding Verified 12/08/22 08:17 General Stated Complaint: GI Bleed MÓNICA: 2 Review of Systems All systems reviewed & are unremarkable except as noted in HPI and below PFSH All Active Problems (Updated 12/09/22 @ 08:35 by JOSEE Aviles) Acute GI bleeding (Acute) Anemia (Chronic) Aortic stenosis, moderate (Acute) History of mitral valve repair (Acute) Cardiomyopathy (Acute) Chronic blood loss anemia (Chronic) CHF (congestive heart failure) (Chronic) CAD (coronary artery disease), [place] coronary artery (Chronic) Chronic atrial fibrillation (Chronic) Medical History Abnormal stool color Allergic rhinitis Aortic stenosis Cervical radiculopathy Elevated PSA Gastric ulcer with hemorrhage GERD (gastroesophageal reflux disease) Heart failure HLD (hyperlipidemia) Insufficiency of tear film of both eyes Malignant neoplasm of prostate Malignant neoplasm of skin Nicotine dependence Type 2 diabetes mellitus Surgical History H/O heart surgery History of tonsillectomy Family History Father Cancer Mother Cardiac pacemaker Diabetes Brother Hyperlipidemia Social History Smoking/Tobacco Use Status: Former Tobacco Use Quit Date: 05/10/22 Tobacco: How many years used: 62 Smoking risk assessment performed?: Yes Alcohol Intake: former Drug use: Never Substance use type: does not use current occupation: retired What is your relationship status?: Panel score (0-1 are the most socially isolated patients): 1 What type of physical activity do you participate in: walking Do you feel safe at home: Yes Do you feel safe in your relationship?: Yes Exam Const General: cooperative, comfortable and no acute distress Resp Effort & Inspection: normal respiratory effort Cardio Rate: regular rate Rhythm: regular rhythm GI Inspection: normal to inspection Skin General skin exam: no rashes or lesions noted Neuro General: patient alert and patient oriented x3 Course Vital Signs Vital signs: Vital Signs Temperature 36.5 C 12/08/22 08:08 Pulse 64 12/08/22 08:08 Respiratory Rate 18 12/08/22 08:08 Blood Pressure 88/64 L 12/08/22 08:08 Pulse Oximetry 100 12/08/22 08:08 Temperature 37.2 C 12/08/22 10:06 Temperature Source Skin 12/08/22 08:08 Pulse 73 12/08/22 10:15 Pulse 80 12/08/22 10:15 Respiratory Rate 10 L 12/08/22 10:15 Blood Pressure 107/59 L 12/08/22 10:15 Blood Pressure Mean 71 12/08/22 10:15 Blood Pressure Position Sitting 12/08/22 08:08 Pulse Oximetry 94 12/08/22 10:06 Oxygen Delivery Method Room Air 12/08/22 10:06 Oxygen Flow Rate 0 12/08/22 10:06 Pain Level 0 12/08/22 08:08 Lab/Test Results Lab/Test Results: Laboratory Tests Range/Units 12/08/22 12/08/22 12/08/22 08:12 08:12 08:12 WBC (4.4-10.8) 10^3/uL 6.46 RBC (4.36-5.78) 10^6/uL 3.03 L Hgb (13.5-17.5) g/dL 7.9 L Hct (40.0-50.0) % 26.7 L MCV (80-95) fL 88 MCH (27.0-33.0) pg 26.1 L MCHC (32.0-36.0) % 29.6 L RDW (11.8-14.1) % 21.9 H Plt Count (130-400) 10^3/uL 204 MPV (8.0-11.0) fL 10.5 Immature Gran % 0.5 Neutrophils % 60.5 Lymphocytes % 24.6 Monocytes % 11.5 Eosinophils % 2.3 Basophils % 0.6 Nucleated RBC % (0.0-0.3) % 0.0 Absolute Neutrophils (1.2-6.7) 10^3/uL 3.91 Absolute Lymphocytes (1.2-3.4) 10^3/uL 1.59 Absolute Monocytes (0.1-0.8) 10^3/uL 0.74 Absolute Eosinophils (0.0-0.7) 10^3/uL 0.15 Absolute Basophils (0.0-0.2) 10^3/uL 0.04 RBC Morphology See Below Polychromasia Present Hypochromasia 1+ Poikilocytosis 1+ Anisocytosis 2+ Sodium (136-145) mmol/L 142 Potassium (3.5-5.1) mmol/L 4.0 Chloride (98-107) mmol/L 107 Carbon Dioxide (21.0-32.0) mmol/L 27.0 Anion Gap (3-11) mmol/L 8.0 BUN (7-18) mg/dL 22 H Creatinine (0.70-1.30) mg/dL 1.1 Est GFR (CKD-EPI 2020) (mL/min/1.73m2) 67.86 Glucose (74-106) mg/dL 245 H Calcium (8.5-10.1) mg/dL 8.9 Magnesium (1.8-2.4) mg/dL 2.0 Total Bilirubin (0.2-1.0) mg/dL 0.4 AST (15-37) U/L 19 ALT (16-63) U/L 27 Alkaline Phosphatase (46-116) U/L 98 Troponin I (<or=60) ng/L < 50 Total Protein (6.4-8.2) g/dL 7.1 Albumin (3.4-5.0) g/dL 3.7 Patient ABO/Rh O Positive Antibody Screen NEGATIVE Crossmatch See Detail Critical Care Time Critical Care Time Attestation: 45 minutes of critical care time secondary to hypotension, telemetry monitoring, anemia secondary to GI bleed. 2 units of blood were administered after consent obtained, telemetry monitoring, Protonix IV and infusion. GI consultation and hospitalist acceptance to tertiary care facility, diagnostic imaging interpretation
[2022-12-08 12:16] LABS: Abs Immature Grans 0.03 10^3/uL (0.0-0.06); Absolute Basophil Count 0.04 10^3/uL (0.0-0.2); Absolute Eosinophil Count 0.16 10^3/uL (0.0-0.7); Absolute Lymphocyte Count 1.37 10^3/uL (1.2-3.4); Absolute Monocyte Count 0.68 10^3/uL (0.1-0.8); Absolute Neutrophil Count 4.04 10^3/uL (1.2-6.7); Basophils % 0.6; Eosinophils % 2.5; HCT 27.6 % (40.0-50.0); HGB 8.2 g/dL (13.5-17.5); Immature Grans % 0.5; Lymphocytes % 21.7; MCH 26.3 pg (27.0-33.0); MCHC 29.7 % (32.0-36.0); MCV 89 fL (80-95); MPV 10.6 fL (8.0-11.0); Monocytes % 10.8; Neutrophils % 63.9; Platelet Count 183 10^3/uL (130-400); RBC 3.12 10^6/uL (4.36-5.78); RDW 20.8 % (11.8-14.1); RDW-SD 65.7 fL; WBC 6.32 10^3/uL (4.4-10.8)
== END 2022-12-08 15:13 | disposition short-term general hospital (02) ==
LOC: ER 08:20
PROVIDERS: Emergency Provider Physician Assistant; PCP Family Medicine
DX: I48.20 Chronic atrial fibrillation, unspecified (principal); I25.10 Atherosclerotic heart disease of native coronary artery without angina pectoris; K92.2 Gastrointestinal hemorrhage, unspecified; D64.9 Anemia, unspecified; I95.9 Hypotension, unspecified; I25.2 Old myocardial infarction; I50.9 Heart failure, unspecified; E11.9 Type 2 diabetes mellitus without complications; Z79.01 Long term (current) use of anticoagulants; Z95.5 Presence of coronary angioplasty implant and graft
CPT/HCPCS: 36415; 80053; 86850; 86900; 86901; 86920; 93005; 96365; 96366; 96375; 99291; 71045; 83735; 84484; 85025; 93010; P9016

== ENCOUNTER 2022-12-18 04:06 | Outpatient (CLI) | payer MEDICARE, SELFPAY ==
[2022-12-18 10:20] LABS: Abs Immature Grans 0.04 10^3/uL (0.0-0.06); Absolute Basophil Count 0.04 10^3/uL (0.0-0.2); Absolute Eosinophil Count 0.15 10^3/uL (0.0-0.7); Absolute Lymphocyte Count 1.45 10^3/uL (1.2-3.4); Absolute Monocyte Count 0.62 10^3/uL (0.1-0.8); Absolute Neutrophil Count 3.69 10^3/uL (1.2-6.7); Basophils % 0.7; Eosinophils % 2.5; HCT 33.7 % (40.0-50.0); HGB 10.4 g/dL (13.5-17.5); Immature Grans % 0.7; Lymphocytes % 24.2; MCH 26.9 pg (27.0-33.0); MCHC 30.9 % (32.0-36.0); MCV 87 fL (80-95); MPV 10.5 fL (8.0-11.0); Monocytes % 10.4; Neutrophils % 61.5; RBC 3.86 10^6/uL (4.36-5.78); RDW 19.9 % (11.8-14.1); RDW-SD 63.4 fL; Reticulocyte 2.1 % (0.5-2.4); WBC 5.99 10^3/uL (4.4-10.8)
[2022-12-18 10:43] LABS: Ferritin 34 ng/mL (26-388)
[2022-12-18 10:49] LABS: Basophilic Stippling Present; Diff Comment Diff Reviewed; Platelet Count 224 10^3/uL (130-400)
[2022-12-18 10:50] LABS: Poikilocytes 2+
[2022-12-18 11:02] LABS: Iron 49 ug/dL (65-175)
== END 2022-12-18 04:07 | disposition home or self-care (01) ==
LOC: LBO 04:06
PROVIDERS: PCP Family Medicine; Visit Provider Family Medicine
DX: D64.9 Anemia, unspecified (principal)
CPT/HCPCS: 36415; 82728; 83540; 85025; 85045

== ENCOUNTER 2022-12-25 01:45 | Outpatient (CLI) | payer MEDICARE, SELFPAY ==
[2022-12-25 10:25] LABS: Abs Immature Grans 0.04 10^3/uL (0.0-0.06); Absolute Basophil Count 0.05 10^3/uL (0.0-0.2); Absolute Eosinophil Count 0.16 10^3/uL (0.0-0.7); Absolute Lymphocyte Count 1.42 10^3/uL (1.2-3.4); Absolute Monocyte Count 0.75 10^3/uL (0.1-0.8); Absolute Neutrophil Count 5.42 10^3/uL (1.2-6.7); Basophils % 0.6; HCT 34.2 % (40.0-50.0); HGB 10.2 g/dL (13.5-17.5); Immature Grans % 0.5; Lymphocytes % 18.1; MCH 26.9 pg (27.0-33.0); MCHC 29.8 % (32.0-36.0); MCV 90 fL (80-95); MPV 10.8 fL (8.0-11.0); Monocytes % 9.6; Neutrophils % 69.2; Platelet Count 220 10^3/uL (130-400); RBC 3.79 10^6/uL (4.36-5.78); RDW 20.4 % (11.8-14.1); RDW-SD 67.7 fL; WBC 7.84 10^3/uL (4.4-10.8)
== END 2022-12-25 01:46 | disposition home or self-care (01) ==
LOC: LBO 01:45
PROVIDERS: PCP Family Medicine; Visit Provider Family Medicine
DX: D64.9 Anemia, unspecified (principal)
CPT/HCPCS: 36415; 85025

== ENCOUNTER 2023-01-01 02:43 | Outpatient (CLI) | payer MEDICARE, SELFPAY ==
[2023-01-01 10:21] LABS: Abs Immature Grans 0.02 10^3/uL (0.0-0.06); Absolute Basophil Count 0.05 10^3/uL (0.0-0.2); Absolute Eosinophil Count 0.13 10^3/uL (0.0-0.7); Absolute Lymphocyte Count 1.29 10^3/uL (1.2-3.4); Absolute Monocyte Count 0.53 10^3/uL (0.1-0.8); Absolute Neutrophil Count 3.27 10^3/uL (1.2-6.7); Basophils % 0.9; Eosinophils % 2.5; HCT 33.4 % (40.0-50.0); HGB 10.3 g/dL (13.5-17.5); Immature Grans % 0.4; Lymphocytes % 24.4; MCH 28.1 pg (27.0-33.0); MCHC 30.8 % (32.0-36.0); MCV 91 fL (80-95); MPV 10.8 fL (8.0-11.0); Neutrophils % 61.8; Platelet Count 226 10^3/uL (130-400); RBC 3.67 10^6/uL (4.36-5.78); RDW 19.8 % (11.8-14.1); RDW-SD 66.9 fL; WBC 5.29 10^3/uL (4.4-10.8)
== END 2023-01-01 02:44 | disposition home or self-care (01) ==
LOC: LBO 02:43
PROVIDERS: PCP Family Medicine; Visit Provider Family Medicine
DX: D64.9 Anemia, unspecified (principal)
CPT/HCPCS: 36415; 85025

== ENCOUNTER 2023-01-03 09:29 | Outpatient (RCR) | payer MEDICARE, SELFPAY | END 2023-01-07 23:59 | disposition home or self-care (01) | LOC: CR 09:29 | PROVIDERS: PCP Family Medicine; Visit Provider Internal Medicine Cardiovascular Disease | DX: Z95.5 Presence of coronary angioplasty implant and graft (principal); Z51.89 Encounter for other specified aftercare | CPT/HCPCS: S9472 ==

== ENCOUNTER 2023-01-15 02:41 | Outpatient (CLI) | payer MEDICARE, SELFPAY ==
[2023-01-15 10:23] LABS: Abs Immature Grans 0.02 10^3/uL (0.0-0.06); Absolute Basophil Count 0.04 10^3/uL (0.0-0.2); Absolute Lymphocyte Count 1.43 10^3/uL (1.2-3.4); Absolute Monocyte Count 0.58 10^3/uL (0.1-0.8); Absolute Neutrophil Count 4.66 10^3/uL (1.2-6.7); Basophils % 0.6; Eosinophils % 1.5; HCT 35.6 % (40.0-50.0); HGB 11.3 g/dL (13.5-17.5); Immature Grans % 0.3; Lymphocytes % 20.9; MCHC 31.7 % (32.0-36.0); MCV 94 fL (80-95); MPV 11.3 fL (8.0-11.0); Monocytes % 8.5; Neutrophils % 68.2; Platelet Count 141 10^3/uL (130-400); RBC 3.77 10^6/uL (4.36-5.78); RDW 18.6 % (11.8-14.1); RDW-SD 63.9 fL; WBC 6.83 10^3/uL (4.4-10.8)
== END 2023-01-15 02:42 | disposition home or self-care (01) ==
LOC: LBO 02:41
PROVIDERS: PCP Family Medicine; Visit Provider Family Medicine
DX: D64.9 Anemia, unspecified (principal)
CPT/HCPCS: 36415; 85025

== ENCOUNTER 2023-01-30 04:18 | Outpatient (CLI) | payer MEDICARE, SELFPAY ==
[2023-01-30 11:39] LABS: Abs Immature Grans 0.01 10^3/uL (0.0-0.06); Absolute Basophil Count 0.04 10^3/uL (0.0-0.2); Absolute Eosinophil Count 0.11 10^3/uL (0.0-0.7); Absolute Lymphocyte Count 1.44 10^3/uL (1.2-3.4); Absolute Neutrophil Count 2.94 10^3/uL (1.2-6.7); Basophils % 0.8; Eosinophils % 2.2; HCT 38.5 % (40.0-50.0); HGB 12.3 g/dL (13.5-17.5); Immature Grans % 0.2; Lymphocytes % 28.6; MCH 29.8 pg (27.0-33.0); MCHC 31.9 % (32.0-36.0); MCV 93 fL (80-95); MPV 10.9 fL (8.0-11.0); Monocytes % 9.9; Neutrophils % 58.3; Platelet Count 191 10^3/uL (130-400); RBC 4.13 10^6/uL (4.36-5.78); RDW 16.5 % (11.8-14.1); RDW-SD 56.7 fL; WBC 5.04 10^3/uL (4.4-10.8)
== END 2023-01-30 04:19 | disposition home or self-care (01) ==
LOC: LBO 04:18
PROVIDERS: PCP Family Medicine; Visit Provider Family Medicine
DX: D64.9 Anemia, unspecified (principal)
CPT/HCPCS: 36415; 85025

== ENCOUNTER 2023-02-12 03:06 | Outpatient (CLI) | payer MEDICARE, SELFPAY ==
[2023-02-12 09:43] LABS: Abs Immature Grans 0.03 10^3/uL (0.0-0.06); Absolute Basophil Count 0.04 10^3/uL (0.0-0.2); Absolute Eosinophil Count 0.11 10^3/uL (0.0-0.7); Absolute Lymphocyte Count 1.44 10^3/uL (1.2-3.4); Absolute Monocyte Count 0.49 10^3/uL (0.1-0.8); Absolute Neutrophil Count 2.83 10^3/uL (1.2-6.7); Basophils % 0.8; Eosinophils % 2.2; HCT 32.1 % (40.0-50.0); HGB 10.5 g/dL (13.5-17.5); Immature Grans % 0.6; Lymphocytes % 29.1; MCHC 32.7 % (32.0-36.0); MCV 95 fL (80-95); MPV 10.4 fL (8.0-11.0); Monocytes % 9.9; Neutrophils % 57.4; Platelet Count 155 10^3/uL (130-400); RBC 3.39 10^6/uL (4.36-5.78); RDW 15.7 % (11.8-14.1); RDW-SD 54.1 fL; WBC 4.94 10^3/uL (4.4-10.8)
== END 2023-02-12 03:07 | disposition home or self-care (01) ==
LOC: LBO 03:08
PROVIDERS: PCP Family Medicine; Visit Provider Family Medicine
DX: D64.9 Anemia, unspecified (principal)
CPT/HCPCS: 36415; 85025

== ENCOUNTER → 2023-03-03 13:36 | Outpatient (BNVA) | payer MEDICARE, SELFPAY | PROVIDERS: PCP Family Medicine; Visit Provider Internal Medicine Cardiovascular Disease | DX: I35.0 Nonrheumatic aortic (valve) stenosis (principal); Z98.890 Other specified postprocedural states; I42.9 Cardiomyopathy, unspecified; I48.20 Chronic atrial fibrillation, unspecified; Z79.01 Long term (current) use of anticoagulants | CPT/HCPCS: 99214 ==

== ENCOUNTER 2023-03-27 02:56 | Outpatient (CLI) | payer MEDICARE, SELFPAY ==
[2023-03-27 13:15] LABS: Abs Immature Grans 0.04 10^3/uL (0.0-0.06); Absolute Basophil Count 0.04 10^3/uL (0.0-0.2); Absolute Eosinophil Count 0.05 10^3/uL (0.0-0.7); Absolute Lymphocyte Count 1.64 10^3/uL (1.2-3.4); Absolute Monocyte Count 0.77 10^3/uL (0.1-0.8); Absolute Neutrophil Count 5.56 10^3/uL (1.2-6.7); Basophils % 0.5; Eosinophils % 0.6; HCT 38.5 % (40.0-50.0); HGB 12.6 g/dL (13.5-17.5); Immature Grans % 0.5; Lymphocytes % 20.2; MCH 29.5 pg (27.0-33.0); MCHC 32.7 % (32.0-36.0); MCV 90 fL (80-95); MPV 11.1 fL (8.0-11.0); Monocytes % 9.5; Neutrophils % 68.7; Platelet Count 204 10^3/uL (130-400); RBC 4.27 10^6/uL (4.36-5.78); RDW 13.4 % (11.8-14.1); RDW-SD 44.2 fL
[2023-03-27 13:44] LABS: Iron 79 ug/dL (65-175)
[2023-03-27 13:57] LABS: Ferritin 42 ng/mL (26-388)
== END 2023-03-27 02:57 | disposition home or self-care (01) ==
LOC: LBO 02:56
PROVIDERS: PCP Family Medicine; Visit Provider Family Medicine
DX: D64.9 Anemia, unspecified (principal)
CPT/HCPCS: 36415; 82728; 83540; 85025

== ENCOUNTER → 2023-06-02 13:50 | Outpatient (BNVA) | payer MEDICARE, SELFPAY | PROVIDERS: PCP Family Medicine; Referring Provider Family Medicine; Visit Provider Internal Medicine Cardiovascular Disease | DX: Z79.82 Long term (current) use of aspirin (principal); Z79.01 Long term (current) use of anticoagulants; I35.0 Nonrheumatic aortic (valve) stenosis; I42.9 Cardiomyopathy, unspecified; I25.10 Atherosclerotic heart disease of native coronary artery without angina pectoris; I48.20 Chronic atrial fibrillation, unspecified | CPT/HCPCS: 99214 ==

== ENCOUNTER → 2023-07-10 00:58 | Outpatient (CLI) | payer MEDICARE, SELFPAY ==
--- NOTE | 2023-07-10 08:15 | DI.US_ITS ---
APPROVED REPORT EXAM: Comprehensive 2D, Doppler, and color-flow Echocardiogram Patient Location: Out-Patient [facility] Automatic: Rajinder Lynn RDCS (AE) Indications: LV function, aortic stenosis moderate, chronic afib, hx mitral valve repair Other Information Study Quality: Adequate Conclusion Borderline concentric left ventricular hypertrophy. Normal left ventricular chamber size. Ejection fraction is 30 to 35% with global hypokinesis Normal right ventricular size and systolic function Left atrium is moderately dilated. Right atrial size is normal Aortic valve is sclerotic and trileaflet. Peak gradient is 28, mean 19 mmHg. Calculated aortic valv e area is 0.87 cm??. There is trace aortic regurgitation Mitral annuloplasty ring noted. Mild mitral regurgitation Normal tricuspid valve with moderate regurgitation. Estimated right ventricular systolic pressure is 23 mmHg Wall motion Left Ventricle The left ventricle is normal size. Left ventricular systolic function is moderate to severely decreas ed. Borderline concentric left ventricular hypertrophy. There is global hypokinesis of the left ventr icle. There is no ventricular septal defect visualized. LVEF is 30-33%. Right Ventricle The right ventricle is normal size. Right ventricular systolic function is grossly normal. The RVSP i s 23.5 mmHg. Atria Left atrium is moderately dilated. The right atrium size is normal. The interatrial septum is intact with no evidence for an atrial septal defect. Aortic Valve Aortic valve is calcified. Aortic valve is trileaflet. Mild aortic stenosis. Peak aortic valve gradie nt is 27.62 mmHg. Highest mean aortic valve gradient is 18.98 mmHg. Calculated JUVENAL by the continuity equation is 0.7 cm2. Trace aortic regurgitation. Mitral Valve Evidence of prior mitral valve repair noted. No evidence of mitral valve stenosis. Mild mitral regurg itation. Tricuspid Valve The tricuspid valve is normal in structure. There is no tricuspid valve stenosis. Moderate tricuspid regurgitation. Pulmonic Valve The pulmonary valve is normal in structure. There is no pulmonic valvular stenosis. Mild pulmonic reg urgitation. Great Vessels The aortic root is normal in size. Ascending aorta is normal in caliber. IVC is normal in size and co llapses >50% with inspiration. Pericardium There is no pericardial effusion. 2D Dimensions IVSD d PLAX 1.05 cm M: 0.6-1.2 Ao Root d 2.97 cm M: 3.1 - 3.7 LVPW d PLAX 0.95 cm M: 0.6 - 1.2 Ao Asc Diam d 3.46 cm M: 2.6 - 3.4 LVID d PLAX 4.49 cm M: 4.2 - 5.8 LVDs 3.79 cm M: 2.5 - 4.0 LV EF Teichholz 32.7 % FS 15.42 % LV EDV (Teich) 91.8 mL LV ESV (Teich) 61.7 mL Stroke Vol Index (Teich) 16.33 Auto EF LV EDV A4C 123.8 mL LV EDV A2C 120.4 mL LV EDV BP 124.8 mL LV ESV A4C 85.0 mL LV ESV A2C 84.6 mL LV ESV BP 87.2 mL LVEF(%) A4C 31.3 % LVEF(%) A2C 29.7 % LVEF(%) BP 30.1 % LV SV A4C 38.8 ml LV SV A2C 35.8 ml LV SV BP 37.6 ml LV CO A4C 3.2 L/min LV CO A2C 2.3 L/min LV CO BP 2.7 L/min HR A4C 81.26 BPM HR A2C 65.34 BPM LV EDV Index (BP) LA Volume LA Length A4C 6.9 cm LA Length A2C LA Area A4C s 32.97 cm2 LA Area A2C s LA Vol A4C A-L 133.39 mL LA Vol A2C A-L LA Vol Biplane A-L LA Vol A4C MOD 128.4 mL LA Vol A2C MOD LA Vol BP MOD RA Volume RA Area A4C 16.0 cm2 RA ESV A4C (A-L) 36.6mL RA Vol/BSA A4C A-L RA Length A4C 6.0 cm RA ESV A4C (MOD) 36.0mL LV Diastology MV E' medial 0.056 (>0.07 m/s) MV E Vmax 1.39 (0.4-1.3 m/s) MV E/E' MED 25.11 (<14) MV E' lateral 0.092 (>0.1 m/s) MV E/E' LAT 15.10 (<14) MV E' Average 0.074 m/s MV E/E'(average) 18.86 Aortic Valve AoV Vmax 2.63 m/s LVOT Vmax 0.73 m/s AoV Peak Grad 27.6 mmHg LVOT Peak Grad 2.1 mmHg AoV Area (Vmax) 0.68 cm2 LVOT VTI 0.193 m AoV VTI 0.599 m LVOT Mean Grad 1.2 mmHg AoV Mean Roland. 2.10 m/s LVOT SV 47.27 mL AoV Mean Grad 19.0 mmHg LVOT Diam s 1.75 cm AoV Area (VTI) 0.79 cm2 Velocity Ratio 0.28 Mitral Valve MV DT 214 (160-240 msec) Pulmonary Valve PV Vmax 0.92 (0.5-1.5 m/s) RVOT Vmax 0.47 m/s PV Peak Grad 3.4 mmHg RVOT Peak Gr. 0.9 mmHg PV Mean Roland 0.64 m/s RVOT VTI 0.112 m PV Mean Grad 1.8 mmHg RVOT Mean Gr. 0.5 mmHg Tricuspid Valve RA Pressure 3.00 mmHg TR Vmax 2.27 m/s TR Peak Grad 20.5 mmHg RVSP (TR) 23.5 mmHg
== END ==
PROVIDERS: PCP Family Medicine; Visit Provider Internal Medicine Cardiovascular Disease
DX: I35.0 Nonrheumatic aortic (valve) stenosis (principal); I48.20 Chronic atrial fibrillation, unspecified; Z98.890 Other specified postprocedural states
CPT/HCPCS: 93306

== ENCOUNTER → 2023-10-06 13:26 | Outpatient (BNVA) | payer MEDICARE, SELFPAY | PROVIDERS: PCP Family Medicine; Visit Provider Internal Medicine Cardiovascular Disease | DX: Z79.01 Long term (current) use of anticoagulants (principal); Z95.5 Presence of coronary angioplasty implant and graft; I42.9 Cardiomyopathy, unspecified; I48.20 Chronic atrial fibrillation, unspecified; I25.10 Atherosclerotic heart disease of native coronary artery without angina pectoris; I35.0 Nonrheumatic aortic (valve) stenosis | CPT/HCPCS: 99214 ==

== ENCOUNTER → 2024-04-12 13:05 | Outpatient (BNVA) | payer MEDICARE, SELFPAY | PROVIDERS: PCP Family Medicine; Referring Provider Family Medicine; Visit Provider Internal Medicine Cardiovascular Disease | DX: I25.5 Ischemic cardiomyopathy (principal); I35.0 Nonrheumatic aortic (valve) stenosis; I48.20 Chronic atrial fibrillation, unspecified; I25.10 Atherosclerotic heart disease of native coronary artery without angina pectoris | CPT/HCPCS: 99213 ==

== ENCOUNTER 2024-09-17 01:14 | Outpatient (CLI) | payer MEDICARE, SELFPAY ==
--- OUTSIDE RECORDS SUMMARY | 2024-09-17 01:27 | XMS_ITS | Referral Summary ---
Author Organization [facility] Address [address] [place] [address] Care Team Providers Care Bead Wire Insulator Name Role Phone Bobby Das MD Primary Care Provider [phone] Allergies Active Allergy Reactions Criticality Noted Date Comments Aspirin Other (See Comments) 11/19/2017 Upset stomach Medications Medication Sig Dispensed Refills Start Date End Date Status rosuvastatin (CRESTOR) 40 mg tablet Take 40 mg by mouth daily. Active multivitamin (THERAGRAN) per tablet Take 1 Tab by mouth daily. Active FLUTICASONE PROPIONATE (FLONASE NASAL) by nasal route as needed. Active tamsulosin (FLOMAX) 0.4 mg capsule TAKE ONE CAPSULE BY MOUTH ONE TIME DAILY 30 capsule 8 03/04/2019 Active calcium carb/vit D2/minerals (CALCIUM CITRATE + ORAL) Take by mouth. Activ e Active Problems Problem Noted Date Diagnosed Date Malignant neoplasm of prostate (FORM[facility]LY [facility]) 018 Cancer Staging:Clinical stage from 11/19/2017:Stage IIB(cT2a, cN0, cM0, PSA: 12.8, Grade Group: 2) - Signed by Delores Gutierrez III, MD on 11/19/2017 Social History Tobacco Use Types Packs/Day Years Used Date Smoking Tobacco: Every Day Smokeless Tobacco: Never Tobacco Cessation:Counseling Given: Yes Interpersonal Safety Answer Date Record ed Physically Hurt Never 06/11/2020 Verbally Threaten Not on file 06/11/2020 Sex and Gender Information Value Date Recorded Sex Assigned at Not on file Gender Identity Not on file Sexual Orientation Not on file Last Filed Vital Signs Vital Sign Reading Time Taken Comments Blood Pressure 121/59 07/16/2019 0942 EDT Pulse 87 07/16/2019941 EDT Temperature 36.1 ??C (97 ??F) 07/16/2019941 EDT Respiratory Rate - - Oxygen Saturation 96% 07/16/2019941 EDT Inhaled Oxygen Concentration - - Weight 81.1 kg (178 lb 12.8 oz) 07/16/2019941 EDT Height 171.5 cm (5' 7.52) 07/16/2019941 EDT Body Mass Index 27.57 07/16/2019 09 EDT Plan of Treatment Not on file Care Teams Bead Wire Insulator Relationship Specialty Start Date End Date Bobby Das MD [address] [place] [address],[address] [place] [phone] PCP - General 07/06/15
--- OUTSIDE RECORDS SUMMARY | 2024-09-17 01:27 | XMS_ITS ---
Author Organization [facility] Address [address] [place] [address] Care Team Providers Care Log Handling Equipment Operator Name Role Phone Bobby Das MD Primary Care Provider Active Problems Problem Noted Date Diagnosed Date Malignant neoplasm of prostate ([facility]) 018 Cancer Staging:Clinical stage from 11/19/2017:Stage IIB(cT2a, cN0, cM0, PSA: 12.8, Grade Group: 2) - Signed by Delores Gutierrez III, MD on 11/19/2017 Current Oncology Plans No current plan information found. Past Plans No past plan information found. Radiation Treatments * No radiation treatments are documented [facility]. Treatments may have been administered in another system. Treatment Summaries Malignant neoplasm of prostate ([facility]ERLY [facility] Prostate Cancer Treatment Summary & Care Plan Provided by Delores Gutierrez III, MD on 06/05/18 General Information Patient name Koko Zamora (home) Date of 1940 Age 77 y.o. Care Team Urology Surgeon Chino José MD Radiation Oncologist Delores Gutierrez MD Clinic Nurse Navigator Tere Adler RN Radiation Oncology Nurse Didier Law RNplan coordinator Physician Bobby Das MD Cancer Characteristics Diagnosis Prostate Cancer Date of diagnosis 10/29/2017 Age 77 Stage/TNM Malignant neoplasm of prostate ([facility]) Staging form: Prostate, AJCC 8th Edition - Clinical stage from 11/19/2017: Stage IIB (cT2a, cN0, cM0, PSA: 12.8, Grade Group: 2) - Signed by Delores Gutierrez III, MD on 11/19/2017 Cancer type Adenocarcinoma Melbourne score 3 + 4 = 7 Familial/Personal Cancer Risk Assessment Genetic/hereditary risk factor(s) None Androgen Deprivation Therapy/Immunotherapy/Chemotherapy Treatment Summary Type of Therapy and Agent Used Stop Date (Year) Hormonal Therapy: Antiandrogen (bicalutamide,enzalutamide) 11/25/2017 12/23/2017 Hormonal Therapy: [facility] Antagonist Lupron 12/02/2017 03/24/2018 Treatment on clinical trial No Serious toxicities during treatment No Reason for stopping therapy Course complete Surgery Surgery date and type Prostate biopsy Findings Prostatic adenocarcinoma Radiation Therapy Radiation therapy Yes Radiation treatment VMAT Daily dose 300 cGy Body area treatment site Prostate / sophie ves Total dose 6,000 cGy Start/stop dates 02/02/2018 - 02/27/2018 Number of treatments 20 Late/Senior Care Effects Signs and symptoms of lingering or late effects None to date Managing long-term side effects: Watching for long-term side effects of prostate cancer treatment is an important part of follow-up care. Let your doctor know if you develop any of the following long-term side effects of prostate cancer: Bowel Problems, such as bleeding and needing to go the bathroom urgently and/or frequently. Urinary Problems, such as trouble emptying the bladder or trouble controlling the bladder, called incontinence. Sexual Health, Intimacy and Body Image Depression and anxiety High blood pressure, high cholesterol and blood sugar levels, mostly for men who have taken or are taking hormone therapy. Anemia, particularly for men who have taken or are taking hormone therapy and/or chemotherapy. Bone Health, particularly for men who have taken or are taking hormone therapy. Hot flashes, particularly for men who have taken or are taking hormone therapy. Signs of Recurrence or New Late Effects of Treatment Tell your doctor about any new or continuing symptoms. If you have new rectal bleeding, blood in your urine and/or a sudden inability to urinate, please contact your primary care provider, urologist or radiation oncologist. Signs and symptoms of recurrence Rising PSA Recommended Surveillance After you have finished all of your treatment for prostate cancer, you may have PSA blood testing done every six months for at least the first five years. If you see both an urologist and a radiationoncologist, they may alternate your follow-up visits so you see each of them approximately once a year. Please continue to see your primary care provider for all general health care recommended for a male your age, including cancer screening tests. Any symptoms should be brought to the attention of your provider: ??? Any brand new symptoms; ??? Any persistent symptoms; ??? Anything you are worried about that might be related to the cancer coming back. Lifestyle Recommendations A number of daily habits can affect your health, including the risk for the cancer coming back or developing another cancer. Talk to your care team about the following habits: Alcohol use The [place] Cancer Society says patients who have completed cancer treatment should limit alcohol intake to 2 drinks a day for men and 1 drink a day for women. 1 alcohol-containing drink is equal to: - 12 ounces of regular beer (craft beers can have more alcohol than regular beers and serving size should be smaller) - 5 ounces of wine - 1.5 ounces of distilled spirits/ liquor- about one mixed drink Sun screen use Simply staying in the shade is one of the best ways to limit your UV exposure. If you are going to be in the sun, wear a hat and sunglasses with UV protection and use sunscreen. When choosing a sunscreen, be sure to read the label. Sunscreens with broad spectrum protection (against both UVA and UVB rays) and with sun protection factor (SPF) values of 30 or higher are recommended. Nutrition Your food choices should focus on vegetables, fruits, whole grains and healthy meats or vegetarian options. Limit added sugar and processed foods Healthy weight It is important to achieve or maintain a healthy weight after treatment. Your primary care provider can help you figure out what your ideal weight should be. If you are underweight, you may need assistance in choosing calorie rich foods. If you are overweight, you should avoid high-calorie foods and drink and increase your physical activity, as tolerated. Physical activity Exercise is part of survivorship and overall good health. After treatment is finished, you can return to normal daily activities as soon as possible. A general goal, for most people, is 150 minutes of moderate exercise or 75 minutes of vigorous aerobic exercise per week. It is also recommended to do some sort of strength training two days per week. Tobacco cessation You can call 2-950-RBDS-NOW for help with a Quit Eddy Current Inspector. You can also get more information at [employer]. You may also be referred to a clinic through the cancer center. Call one of your nurses if you are ready for a referral. Future Follow Up Future appointments Continute follow-up with Dr. José Contacts and Resources PCP Bobby Das MD Genitourinary Cancer Transdisciplinary Team Navigator [facility] Work/Life Issues After Cancer: Many people look forward to going back to work after cancer treatment. Working may help you to reconnect with coworkers and friends, and to focus on something other than cancer. Working can also helpyou settle back into a regular routine. However, every person is different--Your doctor and our Social Workers are available to help answer your questions. Survivors of cancer can often feel worried about health insurance and medical bills. It is very important to avoid losing health insurance and to make sure your insurance plan covers your medical needs in the months and years ahead. Survivors of cancer may also start to think about advanced care planning. You may have questions about living brown (also known as Advance Directives) and making medical decisions. Our Social Workersare available to meet with you to discuss your concerns. You may reach [employer] in the [facility] by calling: . In addition, survivors of cancer may experience issues with the areas listed below. If you have anyconcerns in these or other areas, please speak with your care team to find out how you can get helpwith them. Emotional and mental health School Fatigue Sexual functioning Fertility Other Memory or concentration loss Parenting Physical functioning Additional Resources: [facility] Oncology Support Services at the [facility]. The [facility] provides counseling, social work, and help with nutrition. The [facility] can also provide you with an [place] Cancer Society (ACS) Patient Navigator. The navigator has a wealth of information about living with cancer and cancer survivorship. Call us at [phone] or visit [email or web address] for more information on line. o [place] Cancer Survivor Network (VCSN). The [place] Cancer Survivor Network (VCSN) was founded by[facility] survivors to create a voice for cancer survivors in [place]. Our survivor training and support program offers local groups for survivors in the areas of [facility], the [facility], [facility] and [facility]. For more information call [phone] or visit www.[employer].net [facility] o Steps to Wellness. Steps to Wellness is a program for survivors of cancer. You will be offered a medical evaluation, a physical therapy evaluation, and an exercise program. For more information, contact us at . o [facility] Diabetes Prevention Program. The [facility] Diabetes Prevention Program is for people at risk for developing type 2 diabetes and includes most people who are overweight. You will learn about healthyeating and physical activities that have been proven to lower the risk of developing diabetes. The program also provides a supportive atmosphere for lifestyle changes. The program is in-person and is led by a trained Lifestyle Eddy Current Inspector. The program is a 12-month program that includes 16 sdg-qqaf-srot,weekly core sessions, followed by eight aji-sdrv-atud, monthly sessions. It is offered three times a year. Locations vary through [facility]. Please call [phone] for more information or to enroll. o Cancer: Thriving and Surviving (CTS) Program is a workshop provided twice a year, in late fall and spring. It is a 2 ?? hour program offered once a week, for six weeks, in community settings. Workshops are facilitated by two trained leaders, one or both, who are cancer survivors themselves. Subjects covered include: 1) techniques to deal with problems such as frustration, fatigue, pain, isolation, poor sleep and living with uncertainty 2) appropriate exercise for regaining and maintaining flexibility, and endurance 3) making decisions about treatment and complementary therapies 4) communicating effectively with family, friends, and health professionals 5) nutrition 6) setting priorities 7) relationships For more information call [phone]. o [facility]'s [facility] Resource Trail Level [address], [facility] [phone] o Visiting Nurse Association [facility] [phone] [facility] o [facility] [phone] Breast Cancer Support Group, Prostate Cancer Support Group, Wellness Program o [facility] [phone] Internet Resources o National Survivorship Resource Center http://www.cancer.org/treatment o National Coalition for Cancer Survivorship http://www.canceradvocacy.org o Journey Forward Survivorship Library http://www.journeyforward.org
--- OUTSIDE RECORDS SUMMARY | 2024-09-17 01:27 | XMS_ITS | Encounter Summary ---
Author Organization [facility] Address [address] [place] [address] Care Team Providers Care Chemical Librarian Name Role Phone Bobby Das MD Primary Care Provider [phone] Encounter Details Date Type Department Care Team (Late st Contact Info) Description 07/11/2019 15:31 EDT - 07/11/2019 23:59 EDT Hospital Encounter [facility] Radiation Oncology - [address] [phone] Aries Gutierrez MD [address] [facility], [address] [place] [address] Discharge Disposition: Home or Self Care Social History Tobacco Use Types Packs/Day Years Used Date Smoking Tobacco: Every Day Smokeless Tobacco: Never Sex and Gender Information Value Date Recorded Sex Assigned at Not on file Gender Identity Not on file Sexual Orientation Not on file documented as of this encounter Discharge Diagnoses Diagnosis C61 Malignant neoplasm of prostate-C61[ICD-10-CM] documented in this encounter Medications at Time of Discharge Medication Sig Dispensed Refills Start Date End Date FLUTICASONE PROPIONATE (FLONASE NASAL) by nasal route as needed. multivitamin (THERAGRAN) per tablet Take 1 Tab by mouth daily. rosuvastatin (CRESTOR) 40 mg tablet Take 40 mg by mouth daily. tamsulosin (FLOMAX) 0.4 mg capsule TAKE ONE CAPSULE BY MOUTH ONE TIME DAILY 30 capsule 8 03/04/2019 documented as of this encounter Discharge Disposition Disposition Code Departure Means Destination Home or Self Jail documented in this encounter Plan of Treatment Not on file documented as of this encounter Visit Diagnoses Not on filedocumented in this encounter Care Teams Chemical Librarian Relationship Specialty Start Date End Date Bobby Das MD [address] [place] [address],[address] [place] [address] PCP - General 07/06/15 documented as of this encounter
--- OUTSIDE RECORDS SUMMARY | 2024-09-17 01:27 | XMS_ITS | Encounter Summary ---
Author Organization [facility] Address [address] [place] [address] Care Team Providers Care Head Control Clerk Name Role Phone Bobby Das MD Primary Care Provider [phone] Encounter Details Date Type Department Care Team (Late st Contact Info) Description 04/12/2021 Lab Requisition [facility] Pathology & Laboratory Medicine - [address] [phone] Outr Resulting Lab, Provider Social History Tobacco Use Types Packs/Day Years Used Date Smoking Tobacco: Every Day Smokeless Tobacco: Never Interpersonal Safety Answer Date Record ed Physically Hurt Never 06/11/2020 Verbally Threaten Not on file 06/11/2020 Sex and Gender Information Value Date Recorded Sex Assigned at Not on file Gender Identity Not on file Sexual Orientation Not on file documented as of this encounter Plan of Treatment Not on file documented as of this encounter Procedures Procedure Name Priority Date/Time Associated Diagnosis Comments TESTOSTERONE Routine 04/12/2021 10:00 EDT documented in this encounter Results * TESTOSTERONE (04/12/2021 10:00 EDT) Testosterone 269 229 - 902 ng/dL 04/12/2021 22:19 EDT [facility] Blood VENOUS BLOOD / Unknown 04/12/2021 10:00 EDT 04/12/2021 21:02 EDT Narrative [facility] - 04/12/2021 22:19 EDT The results of this assay can be falsley elevated due to the consumption of Biotin. Provider Outr Resulting Lab CHEMISTRY & BLOOD GAS ORDERABLES [facility] [address] [place] [address] documented in this encounter Visit Diagnoses Not on filedocumented in this encounter Care Teams Head Control Clerk Relationship Specialty Start Date End Date Bobby Das MD [address] [place] [address],[address] [place] [address] PCP - General 07/06/15 documented as of this encounter
--- OUTSIDE RECORDS SUMMARY | 2024-09-17 01:27 | XMS_ITS | Encounter Summary ---
Author Organization [facility] Address [address] [place] [address] Care Team Providers Care Metal Extrusion Supervisor Name Role Phone Bobby Das MD Primary Care Provider [phone] Encounter Details Date Type Department Care Team (Late st Contact Info) Description 01/08/2019 Orders Only [facility] Cancer [place] Radiation Oncology - [address] [phone] Aries Gutierrez MD [address] [place] [address], [address] [place] [phone] Malignant neoplasm of prostate (HCC-CMS) (Primary Dx) Social History Tobacco Use Types Packs/Day Years Used Date Smoking Tobacco: Every Day Smokeless Tobacco: Never Sex and Gender Information Value Date Recorded Sex Assigned at Not on file Gender Identity Not on file Sexual Orientation Not on file documented as of this encounter Plan of Treatment Not on file documented as of this encounter Results * PSA TOTAL, DIAGNOSTIC (07/16/2019 9:30 EDT) PSA 0.1 0 - 6.5 ng/ml 07/16/2019 11:53 EDT [facility] Comment: Serum PSA concentration should not be interpreted as absolute evidence for the presence or absence of malignant disease. Assayed utilizing Siemens (UmBio) chemiluminescent technology. ??Values obtained by using different assay methods cannot be used interchangeably. Blood specimen (specimen) BLOOD SPECIMEN / Unknown 07/16/2019 9:30 EDT 07/16/2019 9:59 EDT Aries Gutierrez MD CHEMISTRY & BLOO D GAS ORDERABLES [facility] [address] [place] [address] documented in this encounter Visit Diagnoses Diagnosis Malignant neoplasm of prostate (HCC-CMS)- Primary Malignant neoplasm of prostate documented in this encounter Care Teams Metal Extrusion Supervisor Relationship Specialty Start Date End Date Bobby Das MD [address] [place] [address],[address] [place] [phone] PCP - General 07/06/15 documented as of this encounter
--- OUTSIDE RECORDS SUMMARY | 2024-09-17 01:27 | XMS_ITS | Encounter Summary ---
Author Organization [facility] Address [address] [place] [address] Care Team Providers Care Swimming Pool Installer Name Role Phone Abby Das MD Primary Care Provider [phone] Encounter Details Date Type Department Care Team (Late st Contact Info) Description 04/22/2018 Results Only [facility] [phone] Abby Das MD [address] [place] [address],[address] [place] [address] Social History Tobacco Use Types Packs/Day Years Used Date Smoking Tobacco: Every Day Smokeless Tobacco: Never Sex and Gender Information Value Date Recorded Sex Assigned at Not on file Gender Identity Not on file Sexual Orientation Not on file documented as of this encounter Plan of Treatment Not on file documented as of this encounter Procedures Procedure Name Priority Date/Time Associated Diagnosis Comments SURGICAL PATHOLOGY Routine 04/22/2018 8:40 EDT documented in this encounter Results * SURGICAL PATHOLOGY (04/22/2018 8:40 EDT) Pathology Report: SURGICAL PATHOLOGY REPORT Reports generated via electronic interface contain original data; however they are lacking the format of the original report. Caution should be taken when reading/interpret ing unformatted reports. Name: ? ETTA BAH ? Accession #: ? [id number] ? : ? 1940 (Age: 77) ??M ? Collect Date: ? 04/22/2018 ? Location: ? [facility] ? Receive Date: ? 04/23/2018 ? Provider: ABBY DAS MD Copy to: ? Final Pathologic Diagnosis: SKIN OF EYEBROW, RIGHT, EXCISION: - Basal cell carcinoma, nodular type. - Margins of excision positive. - Lesion extends to peripheral margin of excision specimen. - Lesion measures approximately 0.2 mm to the deep margin. Comment: These results were phoned to Dr. Abby Das's office. (Dr. Morris)/[facility] Document reviewed and electronically signed by: MARYCARMEN MORRIS MD Report ??Date: 04/24/2018 11:21 By the signature above, the attending physician certifies that he/she has personally conducted a gross and/or microscopic examination of the described specimens and rendered or confirmed the above diagnosis. Specimen(s) Received: R eyebrow Clinical History: Non-healing lesion, R eyebrow, hx of basal cell ca Gross Description: ? Received in formalin labelled with proper patient identification (initials F R) and not otherwise specified is an unoriented elliptical skin excision (0.9 x 0.4 cm and is excised to a depth of 0.2 cm). On the periphery is a dull brown a crusted lesion (0.3 x 0.3 x 0.1 cm). The surgical margin is inked black. The specimen is serially sectioned and submitted entirely as tips, reverse en face, in 1 and central sections in 2. JOSEE Darden (ASCP) 04/23/2018 10:08 AM End of Report [facility] 04/22/2018 8:40 EDT 04/23/2018 8:40 EDT Abby Das MD PATHOLOGY ORDERABLES [facility] [address] [place] [address] documented in this encounter Visit Diagnoses Not on filedocumented in this encounter Care Teams Swimming Pool Installer Relationship Specialty Start Date End Date Abby Das MD [address] [place] [address],[address] [place] [address] PCP - General 07/06/15 documented as of this encounter
--- OUTSIDE RECORDS SUMMARY | 2024-09-17 01:27 | XMS_ITS | Encounter Summary ---
Author Organization [facility] Address [address] [place] [address] Care Team Providers Care Sample Worker Name Role Phone Bobby Das MD Primary Care Provider [phone] Encounter Details Date Type Department Care Team (Late st Contact Info) Description 06/17/2019 Results Only [facility] [phone] Unknown, Provider, Social History Tobacco Use Types Packs/Day Years Used Date Smoking Tobacco: Every Day Smokeless Tobacco: Never Sex and Gender Information Value Date Recorded Sex Assigned at Not on file Gender Identity Not on file Sexual Orientation Not on file documented as of this encounter Plan of Treatment Pending Results Name Type Priority Associated Diagnoses Date /Time OUTSIDE IMAGES - MR NEURO Imaging 06/17/2019 16:02 EDT OUTSIDE IMAGES - OTHER NEURO Imaging 06/17/2019 16:02 EDT OUTSIDE IMAGES - CT NEURO Imaging 06/17/2019 16:02 EDT documented as of this encounter Visit Diagnoses Not on filedocumented in this encounter Care Teams Sample Worker Relationship Specialty Start Date End Date Bobby Das MD [address] [place] [address] ,[address] [place] [address] PCP - General 07/06/15 documented as of this encounter
--- OUTSIDE RECORDS SUMMARY | 2024-09-17 01:27 | XMS_ITS | Clinical Summary ---
Author Organization [facility] Address [address] [place] [address] Care Team Providers Care Coil Winder Repair Name Role Phone Bobby Das MD Primary Care Provider [phone] Allergies Active Allergy Reactions Criticality Noted Date [...] Date Diagnosed Date Malignant neoplasm of prostate ([facility]) 018 Cancer Staging:Clinical stage from 11/19/2017:Stage IIB(cT2a, cN0, cM0, PSA: 12.8, Grade Group: 2) - Signed by Delores Gutierrez III, MD on 11/19/2017 Medical History Medical History Date Comments Cancer ([facility]) Hyperlipidemia Family History Medical History Relation Comments Lung Cancer Father Cancer Maternal Grandfather Relation Status Comments Father Maternal Grandfather Social History [...] on file Sexual Orientation Not on file Obstetrics History Last Filed Vital Signs Vital Sign Reading Time Taken Comments Blood Pressure 121/59 07/16/2019941 EDT Pulse 87 07/16/2019941 EDT Temperature 36.1 ??C (97 ??F) 07/16/2019941 EDT Respiratory Rate - - Oxygen Saturation 96% 07/16/2019941 EDT Inhaled Oxygen Concentration - - Weight 81.1 kg (178 lb 12.8 oz) 07/16/2019941 EDT Height 171.5 cm (5' 7.52) 07/16/2019941 EDT Body Mass Index 27.57 07/16/2019 09 EDT Plan of Treatment Health Maintenance Due Date Last Done Comments RSV Immunization ( o r 60+ Years) (1 - 1-dose 60+ series) 2002 Fall Risk Screening 07/16/2020 07/16/2019, 8 COVID-19 Vaccine (2022- season) 2023 Care Teams Coil Winder Repair Relationship Specialty Start Date End Date Bobby Das MD [address] [place] [address],[address] [place] [phone] PCP - General 07/06/15
--- OUTSIDE RECORDS SUMMARY | 2024-09-17 01:27 | XMS_ITS | Encounter Summary ---
Author Organization [facility] Address [address] [place] [address] Care Team Providers Care Correctional Food Service Supervisor Name Role Phone Bobby Das MD Primary Care Provider [phone] Encounter Details Date Type Department Care Team (Late st Contact Info) Description 08/03/2020 Lab Requisition [facility] Pathology & Laboratory Medicine - [address] [address] Outr Resulting Lab, Provider Social History Tobacco [...] Procedure Name Priority Date/Time Associated Diagnosis Comments DO NOT ORDER STANDALONE - BROAD COVID TEST Today 08/03/2020 12:22 EDT COVID-19 TESTING Routine 08/03/2020 12:2 2 EDT documented in this encounter Results * DO NOT ORDER STANDALONE - BROAD COVID TEST (08/03/2020 12:22 EDT) COVID-19 rt-PCR Result NEGATIVE Negative 08/05/2020 0:18 EDT [facility] Comment: 2019-novel Coronavirus (2019-nCoV) not detected by the qRT-PCR assay. Consider testing for other respiratory viruses or re-collecting for 2019-nCoV testing. Note: Optimum timing for peak viral levels during infections caused by 2019-nCoV have not been determined. Collection of multiple specimens from the same patient may be necessary to detect the virus. Limitations Positive results are indicative of active infection with SARS-CoV-2 but do not rule out bacterial infection or co-infection with other viruses. The agent detected may not be the definite cause of disease. In addition, detection of viral RNA may not indicate the presence of infectious virus or that SARS-CoV-2 is the causative agent for clinical symptoms. Negative results do not preclude SARS-CoV-2 infection and should not be used as the sole basis for patient management decisions. Negative results must be combined with clinical observations, patient history, and epidemiological information. False negative results may also occur if amplification inhibitors are present in the specimen or if inadequate numbers of organisms are present in the specimen. Optimum specimen types and timing for peak viral levels during infections caused by SARS-CoV-2 have not been fully determined. Collection of multiple specimens (types and time points) from the same patient may be necessary to detect the virus. The test was validated for use with upper respiratory specimens obtained via nasopharyngeal or oropharyngeal swabs in VTM, UTM, M4, M5, M6, saline, and MTM media. The performance of this test has not been established for other specimens. Specimens collected using other FDA recommended Specimen Collection Materials listed in the FDA COVID-19 Diagnostic [employer] communication (February 03, 2020) are processed with the caveat that they were not [...] in accordance with CLIA regulations, College [employer] [place] [employer] (CAP) guidelines (Jan 27, 2020), and FDA guidance (Jan 08, 2020). This test is only for use under the Food and Drug Administration's Emergency Use Authorization. Swab ENTIRE NASOPHARYNX / Unknown 08/03/2020 12:22 EDT 08/03/2020 22:21 EDT Provider Outr Resulting Lab MICROBIOLOGY - GENERAL ORDERABLES [facility] [place] * COVID-19 TESTING (08/03/2020 12:22 EDT) COVID-19 rt-PCR Result NEGATIVE Negative 08/05/2020 2:34 EDT [facility] Comment: 2019-novel Coronavirus (2019-nCoV) not detected by the qRT-PCR assay. Consider testing for other respiratory viruses or re-collecting for 2019-nCoV testing. Note: Optimum timing for peak viral levels during infections caused by 2019-nCoV have not been determined. Collection of multiple specimens from the same patient may be necessary to detect the virus. Limitations Positive results are indicative of active infection with SARS-CoV-2 but do not rule out bacterial infection or co-infection with other viruses. The agent detected may not be the definite cause of disease. In addition, detection of viral RNA may not indicate the presence of infectious virus or that SARS-CoV-2 is the causative agent for clinical symptoms. Negative results do not preclude SARS-CoV-2 infection and should not be used as the sole basis for patient management decisions. Negative results must be combined with clinical observations, patient history, and epidemiological information. False negative results may also occur if amplification inhibitors are present in the specimen or if inadequate numbers of organisms are present in the specimen. Optimum specimen types and timing for peak viral levels during infections caused by SARS-CoV-2 have not been fully determined. Collection of multiple specimens (types and time points) from the same patient may be necessary to detect the virus. The test was validated for use with upper respiratory specimens obtained via nasopharyngeal or oropharyngeal swabs in VTM, UTM, M4, M5, M6, saline, and MTM media. The performance of this test has not been established for other specimens. Specimens collected using other FDA recommended Specimen Collection Materials listed in the FDA COVID-19 [employer] communication (February 03, 2020) are processed with the caveat that they were not [...] in accordance with CLIA regulations, College of [place] [employer] (CAP) guidelines (Jan 27, 2020), and FDA guidance (Jan 08, 2020). This test is only for use under the Food and Drug Administration's Emergency Use Authorization. Performing Lab [employer] 08/05/2020 2:34 EDT [facility] Swab 08/03/2020 12:2 2 EDT 08/03/2020 22:21 EDT Provider Outr Resulting Lab MICROBIOLOGY - GENERAL ORDERABLES Performing Organization Address City/State/[facility] Co de Phone Number [facility] [address] [place] [address] [facility] [place] documented in this encounter Visit Diagnoses Not on filedocumented in this encounter Care Teams Correctional Food Service Supervisor Relationship Specialty Start Date End Date Bobby Das MD [address] [place] [address] ,[address] [place] [phone] PCP - General 07/06/15 documented as of this encounter
--- OUTSIDE RECORDS SUMMARY | 2024-09-17 01:27 | XMS_ITS | Encounter Summary ---
Author Organization [facility] Address [address] [place] [address] Care Team Providers Care Heel Edge Inker Machine Name Role Phone Bobby Das MD Primary Care Provider [phone] Reason for Visit * Reason Onset Date Comments Prostate Cancer 06/03/2018 Encounter Details Date Type Department Care Team (Late st Contact Info) Description 06/03/2018 Telephone [facility] Radiation Oncology - [address] [id number] Aries Gutierrez MD [address] [facility], [address] [place] [address] Prostate Cancer Social History Tobacco Use Types Packs/Day Years Used Date Smoking Tobacco: Every Day Smokeless Tobacco: Never Sex and Gender Information Value Date Recorded Sex Assigned at Not on file Gender Identity Not on file Sexual Orientation Not on file documented as of this encounter Miscellaneous Notes * Telephone Encounter - Delores Gutierrez III, MD - 06/03/2018 0452 EDT RADIATION ONCOLOGY I spoke with Mr. Zamora by phone today. He tells me he is unable to make it to [place] for follow-up visits with me as he [...] office if he will be in the [place] area as I would be happy to move my schedule as needed to see him for follow-up. I did strongly encourage him to continue follow-up with Dr. José and asked him to call them to arrange an appointment. He canceled his next scheduled follow-up appointment with me. Sj Gutierrez MD Radiation Oncology [phone] ([phone] (pager) This note has been prepared with voice recognition software. Please excuse tank worker errors. documented in this encounter Plan of Treatment Not on file documented as of this encounter Visit Diagnoses Not on filedocumented in this encounter Care Teams Heel Edge Inker Machine Relationship Specialty Start Date End Date Bobby Das MD [address] [place] [address],[address] [place] [address] PCP - General 07/06/15 documented as of this encounter
--- OUTSIDE RECORDS SUMMARY | 2024-09-17 01:27 | XMS_ITS | Encounter Summary ---
Author Organization [facility] Address [address] [place] [address] Care Team Providers Care Legal Research Analyst Name Role Phone Bobby Das MD Primary Care Provider [phone] Encounter Details Date Type Department Care Team (Latest Contact Info) Description 04/23/2018 15:48 EDT - 04/23/2018 23:59 EDT Hospital Encounter [address] [address] Unknown, Provider, Discharge Disposition: Home or Self Care Social [...] mouth daily. tamsulosin (FLOMAX) 0.4 mg capsule Take 1 Cap by mouth daily. 30 Cap 11 02/16/2018 03/04/2019 documented as of this encounter Discharge Disposition Disposition Code Departure Means Destination Home or Self Retirement documented in this encounter Plan of Treatment Not on file documented as of this encounter Visit Diagnoses Not on filedocumented in this encounter Care Teams Legal Research Analyst Relationship Specialty Start Date End Date Bobby Das MD [address] [place] [address],[address] [place] [address] PCP - General 07/06/15 documented as of this encounter
--- OUTSIDE RECORDS SUMMARY | 2024-09-17 01:27 | XMS_ITS | Encounter Summary ---
Author Organization [facility] Address [address] [place] [address] Care Team Providers Care Postal Service Sectional Center Manager Name Role Phone Bobby Das MD Primary Care Provider [phone] Reason for Referral * Laboratory Services (Routine) - Closed Specialty Diagnoses / Procedures [facility] To Contact Diagnoses Malignant neoplasm of prostate (HCC-CMS) Procedures PSA TOTAL, DIAGNOSTIC Aries Gutierrez MD [address] [place] [phone] Referral ID Status Reason Start Date Expiration Date Visits Re quested Visits Authorized [id number] Closed 07/11/2019 1 1 Encounter Details Date Type Department Care Team (Late st Contact Info) Description 01/08/2019 Documentation Visit [facility] Radiation Oncology - [address] [address] Aries Gutierrez MD [address] [place] [phone] Malignant neoplasm of prostate (HCC-CMS) (Primary Dx) Social History Tobacco Use Types Packs/Day Years Used Date Smoking Tobacco: Every Day Smokeless Tobacco: Never Sex and Gender Information Value Date Recorded Sex Assigned at Not on file Gender Identity Not on file Sexual Orientation Not on file documented as of this encounter Progress Notes * Delores Gutierrez III, MD - 01/08/2019 1512 EST PSA order in chart documented in this encounter Plan of Treatment Scheduled Orders Name Type Priority Associated Diagnoses Orde r Schedule PSA TOTAL, DIAGNOSTIC Lab Routine Malignant neoplasm of prostate (HCC-CMS) Expected: 07/11/2019 (Approximate), Expires: 01/08/2020 documented as of this encounter Visit Diagnoses Diagnosis Malignant neoplasm of prostate (HCC-CMS)- Primary Malignant neoplasm of prostate documented in this encounter Care Teams Postal Service Sectional Center Manager Relationship Specialty Start Date End Date Bobby Das MD [address] [place] [address],[address] [place] [phone] PCP - General 07/06/15 documented as of this encounter
--- OUTSIDE RECORDS SUMMARY | 2024-09-17 01:27 | XMS_ITS | Encounter Summary ---
Author Organization [facility] Address [address] [place] [address] Care Team Providers Care Log Getter Name Role Phone Bobby Das MD Primary Care Provider [phone] Encounter Details Date Type Department Care Team (Late st Contact Info) Description 07/16/2019 9:18 EDT - 07/16/2019 23:59 EDT Hospital Encounter [address] [address] Aries Gutierrez MD [address] [facility], [address] [place] [phone] Discharge Disposition: Auto Discharge Social History Tobacco Use Types Packs/Day Years [...] Start Date End Date calcium carb/vit D2/minerals (CALCIUM CITRATE + ORAL) Take by mouth. FLUTICASONE PROPIONATE (FLONASE NASAL) by nasal route [...] on filedocumented in this encounter Care Teams Log Getter Relationship Specialty Start Date End Date Bobby Das MD [address] [place] [address],[address] [place] [phone] PCP - General 07/06/15 documented as of this encounter
--- OUTSIDE RECORDS SUMMARY | 2024-09-17 01:27 | XMS_ITS | Encounter Summary ---
Author Organization [facility] Address [address] [place] [address] Care Team Providers Care Stock Ranch Supervisor Name Role Phone Bobby Das MD Primary Care Provider [phone] Encounter Details Date Type Department Care Team (Late st Contact Info) Description 07/16/2019 Phlebotomy Only [facility] - [address] [address] Data Analyst, Outpatient Malignant neoplasm of prostate (HCC-CMS) (Primary Dx) [...] Procedure Name Priority Date/Time Associated Diagnosis Comments PSA TOTAL, DIAGNOSTIC Routine 07/16/2019 9:30 EDT Malignant neoplasm of prostate (HCC-CMS) documented in this encounter Results * PSA TOTAL, DIAGNOSTIC (07/16/2019 9:30 EDT) PSA 0.1 0 - 6.5 ng/ml 07/16/2019 11:53 EDT [facility] Comment: Serum PSA concentration should not be interpreted as absolute evidence for the presence or absence of malignant disease. Assayed utilizing Siemens ([employer]) chemiluminescent technology. ??Values obtained by using different assay methods cannot be used interchangeably. Blood specimen (specimen) BLOOD SPECIMEN / Unknown 07/16/2019 9:30 EDT 07/16/2019 9:59 EDT Aries Gutierrez MD CHEMISTRY & BLOO D GAS ORDERABLES [facility] [address] [place] [address] documented in this encounter Visit Diagnoses Diagnosis Malignant neoplasm of prostate (HCC-CMS)- Primary Malignant neoplasm of prostate documented in this encounter Orders Lab Orders Without Results Count Last Ordered D ate First Ordered Date PSA TOTAL, DIAGNOSTIC 1 07/16/2019 documented in this encounter Care Teams Stock Ranch Supervisor Relationship Specialty Start Date End Date Bobby Das MD [address] [place] [address],[address] [place] [address] PCP - General 07/06/15 documented as of this encounter
--- OUTSIDE RECORDS SUMMARY | 2024-09-17 01:27 | XMS_ITS | Encounter Summary ---
Author Organization [facility] Address [address] [place] [address] Care Team Providers Care Taping Supervisor Name Role Phone Bobby Das MD Primary Care Provider [phone] Encounter Details Date Type Department Care Team (Late st Contact Info) Description 10/03/2021 Lab Requisition [facility] Pathology & Laboratory Medicine - [address] [address] Bobby Das MD [address] [place] [address],[address] [place] [phone] Encounter for other general examination Social History Tobacco Use Types Packs/Day Years [...] Priority Date/Time Associated Diagnosis Comments SURGICAL PATHOLOGY Today 10/03/2021 15 :36 EST documented in this encounter Results * SURGICAL PATHOLOGY (10/03/2021 15:36 EST) Note to Patient The following pathology results have been interpreted by your pathologist and may be available to you before your health provider has had the opportunity to review them. Please allow time for your provider to receive these results and explore management options, if applicable. 10/08/2021 16:40 [facility] Final Diagnosis A. SKIN OF BUTTOCK, RIGHT, EXCISION: - Dense mixed inflammation with reactive epidermal hyperplasia and focal ulceration. See comment. 10/08/2021 16:40 [facility] Diagnosis Comment The excision consists of a dense dermal inflammatory infiltrate that is of mixed composition and includes numerous eosinophils. 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 Multiple sections were reviewed and no scabies organisms are seen. No foreign material is identified. 10/08/2021 16:40 [facility] Attestation By the signature below, the attending physician certifies that they have 1) personally conducted a gross and/or microscopic examination of the described specimen(s), and/or personally interpreted the results of laboratory testing of the described specimen(s), and 2) personally rendered or confirmed the above diagnosis. 10/08/2021 16:40 [facility] at 1640 Microscopic Description Sections consist of an excision of skin to the subcutis. The epidermis shows I prominent degree of irregular hyperplasia with central [...] the original or multiple additional deeper sections. 10/08/2021 16:40 [facility] Clinical History Firm lesion not healing; foreign body granuloma 10/08/2021 16:40 [facility] Gross Description A. Received in formalin labelled with proper patient identification (initials F, R) and not otherwise specified is an unoriented ellipse excision of pale de leon-white smooth skin (1.9 x 1.0 cm and is excised to a depth of 0.8 cm). There is a central hypopigmented crusted area (0.9 x 0.7 by less than 0.1 cm) with a central de leon-brown depressed focus (0.3 x 0.3 cm by less than 0.1 cm in depth). The margins are inked blue. The specimen is serially sectioned and entirely submitted as two tips, reverse en face in A1, and central sections in A2-A4. Toni Giordano 10/05/2021 8:15 10/08/2021 16:40 EST [facility] Performing Lab [facility] 16:40 EST [facility] Scanned Images 10/08/2021 16:40 EST [facility] Tissue TISSUE SPECIMEN FROM SKIN / Unknown 10/03/2021 15:36 EST 10/03/2021 22:34 EST Bobby Das MD PATHOLOGY ORDERABLES Performing Organization Address City/State/[facility] Co de Phone Number [facility] [address] [place] [address] documented in this encounter Visit Diagnoses Diagnosis Encounter for other general examination documented in this encounter Care Teams Taping Supervisor Relationship Specialty Start Date End Date Bobby Das MD [address] [place] [address],[address] [place] [address] PCP - General 07/06/15 documented as of this encounter
--- OUTSIDE RECORDS SUMMARY | 2024-09-17 01:27 | XMS_ITS | Encounter Summary ---
Author Organization [facility] Address [address] [place] [address] Care Team Providers Care Car Manager Name Role Phone Bobby Das MD Primary Care Provider [phone] Reason for Visit * Reason Comments Prostate Cancer Follow up Encounter Details Date Type Department Care Team (Late st Contact Info) Description 07/16/2019 9:45 EDT Office Visit [facility] Radiation Oncology - [address] [address] Aries Gutierrez MD [address] [place] [address] [address] [place] [address] Malignant neoplasm of prostate (HCC-CMS) (Primary Dx) Discharge Disposition: Auto Discharge Social History Tobacco [...] neoplasm of prostate-C61[ICD-10-CM] documented in this encounter Discharge Disposition Disposition Code Departure Means Destination Auto Discharge documented in this encounter Progress Notes * Delores Gutierrez III, MD - 07/16/2019 0945 EDT DIVISION OF RADIATION ONCOLOGY FOLLOW-UP NOTE DATE OF SERVICE: 07/16/2019 DIAGNOSIS AND STAGE: [id number], PSA 12.8 Aurora score 3+4 = 7 adenocarcinoma prostate. He wastreatedwith a short course of androgen deprivation and [...] after he did complete treatment he developed tocompression fractures in his back while lifting a heavy object. This has been clearly difficult forhim and has limited his activity and mobility. He is taking minimal pain medication at this point. Delores stern is being evaluated at [facility] [...] in no acute distress. HEENT: Unremarkable. Neck: Supple.Nodes: No palpable cervical, supra-clavicular or axillary adenopathy. [...] him to return to see me for follow-up in 1 year. He states that this is a little difficult for him to driving in his discomfort however he will try a year. Delores Gutierrez III, MD This note has been prepared with voice recognition software. Please excuse slot tag inserter errors. documented in this encounter Plan of Treatment Not on file documented as of this encounter Visit Diagnoses Diagnosis Malignant neoplasm of prostate (HCC-CMS)- Primary Malignant neoplasm of prostate documented in this encounter Historical Medications * This list may reflect changes made after this encounter. Medication Sig Dispensed Refills Start Date End Date calcium carb/vit D2/minerals (CALCIUM CITRATE + ORAL) Take by mouth. added in this encounter Care Teams Car Manager Relationship Specialty Start Date End Date Bobby Das MD [address] [place] [address] ,[address] [place] [phone] PCP - General 07/06/15 documented as of this encounter
--- OUTSIDE RECORDS SUMMARY | 2024-09-17 01:27 | XMS_ITS | Encounter Summary ---
Author Organization [facility] Address [address] [place] [address] Care Team Providers Care Detacker Name Role Phone Bobby Das MD Primary Care Provider [phone] Reason for Visit * Reason Comments Other Encounter Details Date Type Department Care Team (Late st Contact Info) Description 03/04/2019 Refill [facility] Radiation Oncology - [address] [id number] Aries Gutierrez MD [address] [facility], [address] [place] [address] Other Social History Tobacco Use Types Packs/Day Years Used Date Smoking Tobacco: Every Day Smokeless Tobacco: Never Sex and Gender Information Value Date Recorded Sex Assigned at Not on file Gender Identity Not on file Sexual Orientation Not on file documented as of this encounter Ordered Prescriptions Prescription Sig Dispensed Refills Start Date End Da te tamsulosin (FLOMAX) 0.4 mg capsule TAKE ONE CAPSULE BY MOUTH ONE TIME DAILY 30 capsule 8 03/04/2019 documented in this encounter Plan of Treatment Not on file documented as of this encounter Visit Diagnoses Not on filedocumented in this encounter Discontinued Medications Medication Sig Discontinue Reason Start Date End Da te tamsulosin (FLOMAX) 0.4 mg capsule Take 1 Cap by mouth daily. Reorder 02/16/2018 03/04/2019 documented as of this encounter Care Teams Detacker Relationship Specialty Start Date End Date Bobby Das MD [address] [place] [address] ,[address] [place] [address] PCP - General 07/06/15 documented as of this encounter
--- OUTSIDE RECORDS SUMMARY | 2024-09-17 01:27 | XMS_ITS | Encounter Summary ---
Author Organization [facility] Address [address] [place] [address] Care Team Providers Care Doctor Of Nurse Anesthesia Name Role Phone Bobby Das MD Primary Care Provider [phone] Encounter Details Date Type Department Care Team (Late st Contact Info) Description 08/28/2020 Lab Requisition [facility] Pathology & Laboratory Medicine - [address] [address] Outr Resulting Lab, Provider Social History Tobacco [...] ORDER STANDALONE - BROAD COVID TEST Today 08/28/2020 9:58 EDT COVID-19 TESTING Routine 08/28/2020 9:58 EDT documented in this encounter Results * DO NOT ORDER STANDALONE - BROAD COVID TEST (08/28/2020 9:58 EDT) COVID-19 rt-PCR Result NEGATIVE Negative 08/30/2020 14:36 EDT [facility] Comment: 2019-novel Coronavirus (2019-nCoV) [...] in accordance with CLIA regulations, [employer] [place] [employer] ([employer]) guidelines (Jan 27, 2020), and FDA guidance (Jan 08, 2020). This test is only for use under the Food and Drug Administration's Emergency Use Authorization. Swab ENTIRE NASOPHARYNX / Unknown 08/28/2020 9:58 EDT 08/28/2020 23:08 EDT Provider Outr Resulting Lab MICROBIOLOGY - GENERAL ORDERABLES [facility] [place], [place] * COVID-19 TESTING (08/28/2020 9:58 EDT) COVID-19 rt-PCR Result NEGATIVE Negative 08/30/2020 18:20 EDT [facility] Comment: 2019-novel Coronavirus (2019-nCoV) not detected [...] in accordance with CLIA regulations, [employer] [place] [employer] ([employer]) guidelines (Jan 27, 2020), and FDA guidance (Jan 08, 2020). This test is only for use under the Food and Drug Administration's Emergency Use Authorization. Performing Lab [facility] [place] 08/30/2020 18:20 EDT [facility] Swab 08/28/2020 9:58 EDT 08/28/2020 23:08 EDT Provider Outr Resulting Lab MICROBIOLOGY - GENERAL ORDERABLES [facility] [address] [place] [address] [facility] [place], [place] documented in this encounter Visit Diagnoses Not on filedocumented in this encounter Care Teams Doctor Of Nurse Anesthesia Relationship Specialty Start Date End Date Bobby Das MD [address] [place] [address],[address] [place] [address] PCP - General 07/06/15 documented as of this encounter
--- OUTSIDE RECORDS SUMMARY | 2024-09-17 01:27 | XMS_ITS | Continuity of Care Document ---
Author Organization [facility] Address Unknown Care Team Providers Care Transmitter Supervisor Name Role Phone Bobby Das Primary Care Physician Unavaila ble Encounter [facility] Date(s): 11/12/23 - 11/26/23 [facility] [address] [place] [address]- Encounter Diagnosis Syncope and collapse(Final) - Hemiplegia and hemiparesis following cerebral infarction affecting right dominant side(Final) - Aphasia following cerebral infarction(Final) - Dysarthria following cerebral infarction(Final) - Apraxia following cerebral infarction(Final) - Dizziness and giddiness(Final) - Acute ischemic left BRUCE stroke(Discharge Diagnosis) - 11/12/23 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) - Other fatigue(Final) - Chronic atrial fibrillation, unspecified(Final) - MCFP (current) use of anticoagulants(Final) - Type 2 diabetes mellitus without complications(Final) - 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) - Hyperlipidemia, unspecified(Final) - Atherosclerotic heart disease of [place] coronary artery without angina pectoris (Final) - Hypertensive heart disease with heart failure(Final) - Heart failure, unspecified(Final) - Basal cell carcinoma of skin, unspecified(Final) - Nonrheumatic mitral valve disorder, unspecified(Final) - Nonrheumatic mitral (valve) prolapse(Final) - Peripheral vascular disease, unspecified(Final) - Constipation, unspecified(Final) - Retention of urine, unspecified(Final) - Anemia, unspecified(Final) - Discharge Disposition: Home or Self Care Attending Physician: Flavia Zaman MD Admitting Physician: Flavia Zaman MD Allergies, Adverse Reactions, Alerts Substance Reaction Severity Status aspirin GI bleeding Unknown Active Protonix Diarrhea Moderate Active Assessment and Plan Extracted from: Title:1330 Author:Lissette Mckinney Date: Patient assessed at start of shift, assessment benign, no concerns, VSS pt denied pain/SOB/CP, +BM today per pt. No therapy today, am BS 155, no insulin ordered. Patient took am meds with sips of water. Discharge binder complete and reviewed with patient and , questions answered, both stated understanding. Pt escorted to exit by Eliana Trinidad, all belongings taken, pt transported home via private transport. Pt had no concerns or needs at time of discharge. Extracted from: Title:SOAP Note: Rehab Note Author:Flavia Zaman Date:11/25/23 Health Status Allergies: Allergic Reactions (All) Moderate Protonix- Diarrhea. Nonallergic Reactions (All) Unknown Aspirin- Gi bleeding., Allergies (2) Active Severity Reaction Protonix Moderate Diarrhea aspirin Unknown GI bleeding Medications Current medications: (Selected) Inpatient Medications Ordered Colace: 100 mg = 1 cap(s), Oral, BID Dulcolax Laxative: 10 mg = 1 supp, Rectal, Daily, PRN: Constipation Flomax: 0.4 mg = 1 cap(s), Oral, Daily Metoprolol Tartrate: 12.5 mg = 1 tab(s), Oral, BID MiraLax: 17 gm = 1 packet(s), Oral, Daily, PRN: Constipation acetaminophen: 650 mg = 2 tab(s), Oral, q4hr, PRN: Pain apixaban: 2.5 mg = 1 tab(s), Oral, BID atorvastatin: 80 mg = 1 tab(s), Oral, Daily bacitracin zinc 500 units/g topical ointment: 1 leopoldo, Topical, q8hr, PRN: Other (see comment) fluticasone 50 mcg/inh nasal spray: 50 mcg = 1 spray(s), Nasal, Daily, PRN: Allergy symptoms glucagon: 1 mg = 1 vial(s), Intramuscular, Daily, PRN: Blood Glucose glucose 40% oral gel: 37.5 gm = 1 EA, Oral, q30min, PRN: Low blood sugar melatonin: 3 mg = 1 tab(s), Oral, HS metFORMIN: 1,000 mg = 2 tab(s), Oral, BIDWM senna: 17.2 mg = 2 tab(s), Oral, HS traZODone: 50 mg = 1 tab(s), Oral, HS, PRN: Insomnia Documented Medications Documented Crestor 40 mg oral tablet: 40 mg = 1 tab(s), Oral, Daily, 0 Refill(s) Flomax 0.4 mg oral capsule: 0.4 mg = 1 cap(s), Oral, Daily, 0 Refill(s) Refresh Plus ophthalmic solution: 1 drop(s), Ophthalmic, TID, PRN: for dry eyes, 0 Refill(s) apixaban 2.5 mg oral tablet: 2.5 mg = 1 tab(s), Oral, BID, 0 Refill(s) fluorouracil: 0 Refill(s) fluticasone 50 mcg/inh nasal spray: 50 mcg = 1 spray(s), Nasal, Daily, 0 Refill(s) metFORMIN 500 mg oral tablet, extended release: 500 mg = 1 tab(s), Oral, BID, 0 Refill(s) multivitamin: 1 tab(s), Oral, Daily, 0 Refill(s) tretinoin: 0 Refill(s), Medications (16) Active Scheduled: (8) apixaban 2.5 mg tab [[facility]] 2.5 mg 1 tab(s), Oral, BID atorvastatin 80 mg Tab [[facility]] 80 mg 1 tab(s), Oral, Daily docusate sodium 100 mg Cap [[facility]] 100 mg 1 cap(s), Oral, BID melatonin 3 mg Tab [[facility]] 3 mg 1 tab(s), Oral, HS metFORMIN 500 mg ER Tab [[facility]] 1,000 mg 2 tab(s), Oral, BIDWM metoprolol 12.5 mg pre-split tablet [[facility]] 12.5 mg 1 tab(s), Oral, BID senna 8.6 mg Tab [[facility]] 17.2 mg 2 tab(s), Oral, HS tamsulosin 0.4 mg Oral Cap [[facility]] 0.4 mg 1 cap(s), Oral, Daily Continuous: (0) PRN: (8) acetaminophen 325 mg Tab [[facility]] 650 mg 2 tab(s), Oral, q4hr bacitracin zinc 500 units/g Top Oint UD [[facility]] 1 leopoldo, Topical, q8hr bisacodyl 10 mg Supp [[facility]] 10 mg 1 supp, Rectal, Daily fluticasone Nasal 50 mcg/inh Hilda [[facility]] 50 mcg 1 spray(s), Nasal, Daily glucagon recombinant 1 mg Inj [facility]] 1 mg 1 vial(s), Intramuscular, Daily glucose 40% oral gel ([facility]] 37.5 gm 1 EA, Oral, q30min polyethylene glycol 3350 Oral Pwdr Recon [[facility]] 17 gm 1 packet(s), Oral, Daily traZODone 50 mg Tab [facility]] 50 mg 1 tab(s), Oral, HS . Problem list: All Problems Afib / [id number] / Confirmed Basal cell carcinoma (BCC) / [id number] / Confirmed CAD (coronary artery disease) / 9552142586 / Confirmed GI bleed / [id number] / Confirmed S/P mitral valve repair / [id number] / Confirmed Hypertriglyceridemia / [id number] / Confirmed MVP (mitral valve prolapse) / [id number] / Confirmed PAD (peripheral artery disease) / [id number] / Confirmed DM2 (diabetes mellitus, type 2) / 866381978 / Confirmed, Active Problems (9) Afib Basal cell carcinoma (BCC) CAD (coronary artery disease) DM2 (diabetes mellitus, type 2) GI bleed Hypertriglyceridemia MVP (mitral valve prolapse) PAD (peripheral artery disease) S/P mitral valve repair Impression and Plan #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 #Cardiovascular HTN HLD - continue crestor 40. Metoprolol 12.5 bid continued from however pt would like to resume home carvedilol, after period permissive HTN afib - watchman procedure on hold until outpatient, after recovery from stroke. Continue apixaban 2.5 (pt declines recommended 5 bid) #DM2 CCD diet, ISS. metformin 500 bid per home, lantus added at 10 units, with ISS most BGs <140 so stopped lantus BGs then 130-180, so discussed increasing metformin but pt hesitant 11/20 pt agrees to increase metformin to 1000 bid BGs now 100-140 continue follow BGs, adjust as needed f/u with PCP after discharge re ongoing management DM2 #GI prophylaxis proton pump inhibitor bid per DH stopped per pt preference as causes diarrhea per pt report #pain managed with acetaminophen, PRN #dispo home after 2 weeks LOS with f/u home health services as needed, planning d/c 11/26 f/u PCP neuro cards #Potential or actual clinically significant medication issues addressed per [facility] regulations: NO 25 min total time spent on chart review, team discussion, face to face eval Extracted from: Title:SOAP Note: Rehab Note Author:Flavia Zaman Date:11/24/23 Health Status Allergies: Allergic Reactions (All) Moderate Protonix- Diarrhea. Nonallergic Reactions (All) Unknown Aspirin- Gi bleeding., Allergies (2) Active Severity Reaction Protonix Moderate Diarrhea aspirin Unknown GI bleeding Medications Current medications: (Selected) Inpatient Medications Ordered Colace: 100 mg = 1 cap(s), Oral, BID Dulcolax Laxative: 10 mg = 1 supp, Rectal, Daily, PRN: Constipation Flomax: 0.4 mg = 1 cap(s), Oral, Daily Humalog (Lispro) Sliding Scale Medium Dose Algorithm: Medium Dose Scale, Subcutaneous, QIDACHS Metoprolol Tartrate: 12.5 mg = 1 tab(s), Oral, BID MiraLax: 17 gm = 1 packet(s), Oral, Daily, PRN: Constipation acetaminophen: 650 mg = 2 tab(s), Oral, q4hr, PRN: Pain apixaban: 2.5 mg = 1 tab(s), Oral, BID atorvastatin: 80 mg = 1 tab(s), Oral, Daily bacitracin zinc 500 units/g topical ointment: 1 leopoldo, Topical, q8hr, PRN: Other (see comment) fluticasone 50 mcg/inh nasal spray: 50 mcg = 1 spray(s), Nasal, Daily, PRN: Allergy symptoms glucagon: 1 mg = 1 vial(s), Intramuscular, Daily, PRN: Blood Glucose glucose 40% oral gel: 37.5 gm = 1 EA, Oral, q30min, PRN: Low blood sugar melatonin: 3 mg = 1 tab(s), Oral, HS metFORMIN: 1,000 mg = 2 tab(s), Oral, BIDWM senna: 17.2 mg = 2 tab(s), Oral, HS traZODone: 50 mg = 1 tab(s), Oral, HS, PRN: Insomnia Documented Medications Documented Crestor 40 mg oral tablet: 40 mg = 1 tab(s), Oral, Daily, 0 Refill(s) Flomax 0.4 mg oral capsule: 0.4 mg = 1 cap(s), Oral, Daily, 0 Refill(s) Refresh Plus ophthalmic solution: 1 drop(s), Ophthalmic, TID, PRN: for dry eyes, 0 Refill(s) apixaban 2.5 mg oral tablet: 2.5 mg = 1 tab(s), Oral, BID, 0 Refill(s) fluorouracil: 0 Refill(s) fluticasone 50 mcg/inh nasal spray: 50 mcg = 1 spray(s), Nasal, Daily, 0 Refill(s) metFORMIN 500 mg oral tablet, extended release: 500 mg = 1 tab(s), Oral, BID, 0 Refill(s) multivitamin: 1 tab(s), Oral, Daily, 0 Refill(s) tretinoin: 0 Refill(s), Medications (17) Active Scheduled: (9) apixaban 2.5 mg tab [[facility]] 2.5 mg 1 tab(s), Oral, BID atorvastatin 80 mg Tab [[facility]] 80 mg 1 tab(s), Oral, Daily docusate sodium 100 mg Cap [[facility]] 100 mg 1 cap(s), Oral, BID insulin lispro (HumaLOG) 100 units/mL SubQ PEN [[facility]] Medium Dose Scale, Subcutaneous, QIDACHS melatonin 3 mg Tab [[facility]] 3 mg 1 tab(s), Oral, HS metFORMIN 500 mg ER Tab [[facility]] 1,000 mg 2 tab(s), Oral, BIDWM metoprolol 12.5 mg pre-split tablet [[facility]] 12.5 mg 1 tab(s), Oral, BID senna 8.6 mg Tab [[facility]] 17.2 mg 2 tab(s), Oral, HS tamsulosin 0.4 mg Oral Cap [[facility]] 0.4 mg 1 cap(s), Oral, Daily Continuous: (0) PRN: (8) acetaminophen 325 mg Tab [[facility]] 650 mg 2 tab(s), Oral, q4hr bacitracin zinc 500 units/g Top Oint UD [[facility]] 1 leopoldo, Topical, q8hr bisacodyl 10 mg Supp [[facility]] 10 mg 1 supp, Rectal, Daily fluticasone Nasal 50 mcg/inh Hilda [[facility]] 50 mcg 1 spray(s), Nasal, Daily glucagon recombinant 1 mg Inj [[facility]] 1 mg 1 vial(s), Intramuscular, Daily glucose 40% oral gel ([facility]] 37.5 gm 1 EA, Oral, q30min polyethylene glycol 3350 Oral Pwdr Recon [[facility]] 17 gm 1 packet(s), Oral, Daily traZODone 50 mg Tab [[facility]] 50 mg 1 tab(s), Oral, HS . Problem list: All Problems Afib / [id number] / Confirmed Basal cell carcinoma (BCC) / [id number] / Confirmed CAD (coronary artery disease) / 9300148224 / Confirmed GI bleed / [id number] / Confirmed S/P mitral valve repair / [id number] / Confirmed Hypertriglyceridemia / [id number] / Confirmed MVP (mitral valve prolapse) / [id number] / Confirmed PAD (peripheral artery disease) / [id number] / Confirmed DM2 (diabetes mellitus, type 2) / 607883964 / Confirmed, Active Problems (9) Afib Basal cell carcinoma (BCC) CAD (coronary artery disease) DM2 (diabetes mellitus, type 2) GI bleed Hypertriglyceridemia MVP (mitral valve prolapse) PAD (peripheral artery disease) S/P mitral valve repair Impression and Plan #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 #Cardiovascular HTN HLD - continue crestor 40. Metoprolol 12.5 bid continued from however pt would like to resume home carvedilol, after period permissive HTN afib - watchman procedure on hold until outpatient, after recovery from stroke. Continue apixaban 2.5 (pt declines recommended 5 bid) #DM2 CCD diet, ISS. metformin 500 bid per home, lantus added at 10 units, with ISS most BGs <140 so stopped lantus BGs then 130-180, so discussed increasing metformin but pt hesitant 11/20 pt agrees to increase metformin to 1000 bid BGs now 100-140 continue follow BGs, adjust as needed f/u with PCP after discharge re ongoing management DM2 #GI prophylaxis proton pump inhibitor bid per DH stopped per pt preference as causes diarrhea per pt report #pain managed with acetaminophen, PRN #dispo home after 2 weeks LOS with f/u home health services as needed, planning d/c 11/26 f/u PCP neuro cards #Potential or actual clinically significant medication issues addressed per [facility] regulations: NO 25 min total time spent on chart review, team discussion, face to face eval Extracted from: Title:SOAP Note: Rehab Note Author:Flavia Zaman Date:11/21/23 Health Status Allergies: Allergic Reactions (All) Moderate Protonix- Diarrhea. Nonallergic Reactions (All) Unknown Aspirin- Gi bleeding., Allergies (2) Active Severity Reaction Protonix Moderate Diarrhea aspirin Unknown GI bleeding Medications Current medications: (Selected) Inpatient Medications Ordered Colace: 100 mg = 1 cap(s), Oral, BID Dulcolax Laxative: 10 mg = 1 supp, Rectal, Daily, PRN: Constipation Flomax: 0.4 mg = 1 cap(s), Oral, Daily Humalog (Lispro) Sliding Scale Medium Dose Algorithm: Medium Dose Scale, Subcutaneous, QIDACHS Metoprolol Tartrate: 12.5 mg = 1 tab(s), Oral, BID MiraLax: 17 gm = 1 packet(s), Oral, Daily, PRN: Constipation acetaminophen: 650 mg = 2 tab(s), Oral, q4hr, PRN: Pain apixaban: 2.5 mg = 1 tab(s), Oral, BID atorvastatin: 80 mg = 1 tab(s), Oral, Daily bacitracin zinc 500 units/g topical ointment: 1 leopoldo, Topical, q8hr, PRN: Other (see comment) fluticasone 50 mcg/inh nasal spray: 50 mcg = 1 spray(s), Nasal, Daily, PRN: Allergy symptoms glucagon: 1 mg = 1 vial(s), Intramuscular, Daily, PRN: Blood Glucose glucose 40% oral gel: 37.5 gm = 1 EA, Oral, q30min, PRN: Low blood sugar melatonin: 3 mg = 1 tab(s), Oral, HS metFORMIN: 1,000 mg = 2 tab(s), Oral, BIDWM senna: 17.2 mg = 2 tab(s), Oral, HS traZODone: 50 mg = 1 tab(s), Oral, HS, PRN: Insomnia Documented Medications Documented Crestor 40 mg oral tablet: 40 mg = 1 tab(s), Oral, Daily, 0 Refill(s) Flomax 0.4 mg oral capsule: 0.4 mg = 1 cap(s), Oral, Daily, 0 Refill(s) Refresh Plus ophthalmic solution: 1 drop(s), Ophthalmic, TID, PRN: for dry eyes, 0 Refill(s) apixaban 2.5 mg oral tablet: 2.5 mg = 1 tab(s), Oral, BID, 0 Refill(s) fluorouracil: 0 Refill(s) fluticasone 50 mcg/inh nasal spray: 50 mcg = 1 spray(s), Nasal, Daily, 0 Refill(s) metFORMIN 500 mg oral tablet, extended release: 500 mg = 1 tab(s), Oral, BID, 0 Refill(s) multivitamin: 1 tab(s), Oral, Daily, 0 Refill(s) tretinoin: 0 Refill(s), Medications (17) Active Scheduled: (9) apixaban 2.5 mg tab [[facility]] 2.5 mg 1 tab(s), Oral, BID atorvastatin 80 mg Tab [[facility]] 80 mg 1 tab(s), Oral, Daily docusate sodium 100 mg Cap [[facility]] 100 mg 1 cap(s), Oral, BID insulin lispro (HumaLOG) 100 units/mL SubQ PEN [[facility]] Medium Dose Scale, Subcutaneous, QIDACHS melatonin 3 mg Tab [[facility]] 3 mg 1 tab(s), Oral, HS metFORMIN 500 mg ER Tab [[facility]] 1,000 mg 2 tab(s), Oral, BIDWM metoprolol 12.5 mg pre-split tablet [[facility]] 12.5 mg 1 tab(s), Oral, BID senna 8.6 mg Tab [[facility]] 17.2 mg 2 tab(s), Oral, HS tamsulosin 0.4 mg Oral Cap [[facility]] 0.4 mg 1 cap(s), Oral, Daily Continuous: (0) PRN: (8) acetaminophen 325 mg Tab [[facility]] 650 mg 2 tab(s), Oral, q4hr bacitracin zinc 500 units/g Top Oint UD [[facility]] 1 leopoldo, Topical, q8hr bisacodyl 10 mg Supp [[facility]] 10 mg 1 supp, Rectal, Daily fluticasone Nasal 50 mcg/inh Hilda [[facility]] 50 mcg 1 spray(s), Nasal, Daily glucagon recombinant 1 mg Inj [[facility]] 1 mg 1 vial(s), Intramuscular, Daily glucose 40% oral gel ([facility]] 37.5 gm 1 EA, Oral, q30min polyethylene glycol 3350 Oral Pwdr Recon [[facility]] 17 gm 1 packet(s), Oral, Daily traZODone 50 mg Tab [[facility]] 50 mg 1 tab(s), Oral, HS . Problem list: All Problems Afib / [id number] / Confirmed Basal cell carcinoma (BCC) / [id number] / Confirmed CAD (coronary artery disease) / 0581434965 / Confirmed GI bleed / [id number] / Confirmed S/P mitral valve repair / [id number] / Confirmed Hypertriglyceridemia / 979151788 / Confirmed MVP (mitral valve prolapse) / [id number] / Confirmed PAD (peripheral artery disease) / [id number] / Confirmed DM2 (diabetes mellitus, type 2) / 634171069 / Confirmed, Active Problems (9) Afib Basal cell carcinoma (BCC) CAD (coronary artery disease) DM2 (diabetes mellitus, type 2) GI bleed Hypertriglyceridemia MVP (mitral valve prolapse) PAD (peripheral artery disease) S/P mitral valve repair Impression and Plan #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 #Cardiovascular HTN HLD - continue crestor 40. Metoprolol 12.5 bid continued from however pt would like to resume home carvedilol, after period permissive HTN afib - watchman procedure on hold until outpatient, after recovery from stroke. Continue apixaban 2.5 (pt declines recommended 5 bid) #DM2 CCD diet, ISS. metformin 500 bid per home, lantus added at 10 units, with ISS most BGs <140 so stopped lantus BGs then 130-180, so discussed increasing metformin but pt hesitant 11/20 pt agrees to increase metformin to 1000 bid follow BGs, adjust as needed; f/u with PCP after discharge re ongoing management DM2 #GI prophylaxis proton pump inhibitor bid per stopped per pt preference as causes diarrhea per pt report #pain managed with acetaminophen, PRN #dispo home after 2 weeks LOS with f/u home health services as needed, planning d/c next week 11/26 f/u PCP neuro cards #Potential or actual clinically significant medication issues addressed per [facility] regulations: NO 35 min total time spent on chart review, team discussion, face to face eval Extracted from: Title:SOAP Note: Rehab Note Author:Flavia Zaman Date:11/20/23 Health Status Allergies: Allergic Reactions (All) Moderate Protonix- Diarrhea. Nonallergic Reactions (All) Unknown Aspirin- Gi bleeding., Allergies (2) Active Severity Reaction Protonix Moderate Diarrhea aspirin Unknown GI bleeding Medications Current medications: (Selected) Inpatient Medications Ordered Colace: 100 mg = 1 cap(s), Oral, BID Dulcolax Laxative: 10 mg = 1 supp, Rectal, Daily, PRN: Constipation Flomax: 0.4 mg = 1 cap(s), Oral, Daily Humalog (Lispro) Sliding Scale Medium Dose Algorithm: Medium Dose Scale, Subcutaneous, QIDACHS Metoprolol Tartrate: 12.5 mg = 1 tab(s), Oral, BID MiraLax: 17 gm = 1 packet(s), Oral, Daily, PRN: Constipation acetaminophen: 650 mg = 2 tab(s), Oral, q4hr, PRN: Pain apixaban: 2.5 mg = 1 tab(s), Oral, BID atorvastatin: 80 mg = 1 tab(s), Oral, Daily bacitracin zinc 500 units/g topical ointment: 1 leopoldo, Topical, q8hr, PRN: Other (see comment) fluticasone 50 mcg/inh nasal spray: 50 mcg = 1 spray(s), Nasal, Daily, PRN: Allergy symptoms glucagon: 1 mg = 1 vial(s), Intramuscular, Daily, PRN: Blood Glucose glucose 40% oral gel: 37.5 gm = 1 EA, Oral, q30min, PRN: Low blood sugar melatonin: 3 mg = 1 tab(s), Oral, HS metFORMIN: 1,000 mg = 2 tab(s), Oral, BIDWM senna: 17.2 mg = 2 tab(s), Oral, HS traZODone: 50 mg = 1 tab(s), Oral, HS, PRN: Insomnia Documented Medications Documented Crestor 40 mg oral tablet: 40 mg = 1 tab(s), Oral, Daily, 0 Refill(s) Flomax 0.4 mg oral capsule: 0.4 mg = 1 cap(s), Oral, Daily, 0 Refill(s) Refresh Plus ophthalmic solution: 1 drop(s), Ophthalmic, TID, PRN: for dry eyes, 0 Refill(s) apixaban 2.5 mg oral tablet: 2.5 mg = 1 tab(s), Oral, BID, 0 Refill(s) fluorouracil: 0 Refill(s) fluticasone 50 mcg/inh nasal spray: 50 mcg = 1 spray(s), Nasal, Daily, 0 Refill(s) metFORMIN 500 mg oral tablet, extended release: 500 mg = 1 tab(s), Oral, BID, 0 Refill(s) multivitamin: 1 tab(s), Oral, Daily, 0 Refill(s) tretinoin: 0 Refill(s), Medications (17) Active Scheduled: (9) apixaban 2.5 mg tab [[facility]] 2.5 mg 1 tab(s), Oral, BID atorvastatin 80 mg Tab [[facility]] 80 mg 1 tab(s), Oral, Daily docusate sodium 100 mg Cap [[facility]] 100 mg 1 cap(s), Oral, BID insulin lispro (HumaLOG) 100 units/mL SubQ PEN [[facility]] Medium Dose Scale, Subcutaneous, QIDACHS melatonin 3 mg Tab [[facility]] 3 mg 1 tab(s), Oral, HS metFORMIN 500 mg ER Tab [[facility]] 1,000 mg 2 tab(s), Oral, BIDWM metoprolol 12.5 mg pre-split tablet [[facility]] 12.5 mg 1 tab(s), Oral, BID senna 8.6 mg Tab [[facility]] 17.2 mg 2 tab(s), Oral, HS tamsulosin 0.4 mg Oral Cap [[facility]] 0.4 mg 1 cap(s), Oral, Daily Continuous: (0) PRN: (8) acetaminophen 325 mg Tab [[facility]] 650 mg 2 tab(s), Oral, q4hr bacitracin zinc 500 units/g Top Oint UD [[facility]] 1 leopoldo, Topical, q8hr bisacodyl 10 mg Supp [[facility]] 10 mg 1 supp, Rectal, Daily fluticasone Nasal 50 mcg/inh Hilda [[facility]] 50 mcg 1 spray(s), Nasal, Daily glucagon recombinant 1 mg Inj [[facility]] 1 mg 1 vial(s), Intramuscular, Daily glucose 40% oral gel ([facility]] 37.5 gm 1 EA, Oral, q30min polyethylene glycol 3350 Oral Pwdr Recon [[facility]] 17 gm 1 packet(s), Oral, Daily traZODone 50 mg Tab [[facility]] 50 mg 1 tab(s), Oral, HS . Problem list: All Problems Afib / [id number] / Confirmed Basal cell carcinoma (BCC) / [id number] / Confirmed CAD (coronary artery disease) / 7926673265 / Confirmed GI bleed / [id number] / Confirmed S/P mitral valve repair / [id number] / Confirmed Hypertriglyceridemia / 388951297 / Confirmed MVP (mitral valve prolapse) / [id number] / Confirmed PAD (peripheral artery disease) / [id number] / Confirmed DM2 (diabetes mellitus, type 2) / 572190668 / Confirmed, Active Problems (9) Afib Basal cell carcinoma (BCC) CAD (coronary artery disease) DM2 (diabetes mellitus, type 2) GI bleed Hypertriglyceridemia MVP (mitral valve prolapse) PAD (peripheral artery disease) S/P mitral valve repair Impression and Plan #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 #Cardiovascular HTN HLD - continue crestor 40. Metoprolol 12.5 bid continued from however pt would like to resume home carvedilol, after period permissive HTN afib - watchman procedure on hold until outpatient, after recovery from stroke. Continue apixaban 2.5 (pt declines recommended 5 bid) #DM2 CCD diet, ISS. metformin 500 bid per home, lantus added at 10 units, with ISS most BGs <140 so stopped lantus BGs then 130-180, so discussed increasing metformin but pt hesitant 11/20 pt agrees to increase metformin to 1000 bid follow BGs, adjust as needed; f/u with PCP after discharge re ongoing management DM2 #GI prophylaxis proton pump inhibitor bid per stopped per pt preference as causes diarrhea per pt report #pain managed with acetaminophen, PRN #dispo home after 2 weeks LOS with f/u home health services as needed, planning d/c next week 11/26 f/u PCP neuro cards #Potential or actual clinically significant medication issues addressed per [facility] regulations: YES metformin increased Did the facility complete prescribed/recommended actions in response to the identified potentially clinically significant medication issues by midnight of the next calendar day? YES 35 min total time spent on chart review, team discussion, face to face eval Extracted from: Title:SOAP Note: Rehab Note Author:Flavia Zaman Date:11/19/23 Health Status Allergies: Allergic Reactions (All) Moderate Protonix- Diarrhea. Nonallergic Reactions (All) Unknown Aspirin- Gi bleeding., Allergies (2) Active Severity Reaction Protonix Moderate Diarrhea aspirin Unknown GI bleeding Medications Current medications: (Selected) Inpatient Medications Ordered Colace: 100 mg = 1 cap(s), Oral, BID Dulcolax Laxative: 10 mg = 1 supp, Rectal, Daily, PRN: Constipation Flomax: 0.4 mg = 1 cap(s), Oral, Daily Humalog (Lispro) Sliding Scale Medium Dose Algorithm: Medium Dose Scale, Subcutaneous, QIDACHS Metoprolol Tartrate: 12.5 mg = 1 tab(s), Oral, BID MiraLax: 17 gm = 1 packet(s), Oral, Daily, PRN: Constipation acetaminophen: 650 mg = 2 tab(s), Oral, q4hr, PRN: Pain apixaban: 2.5 mg = 1 tab(s), Oral, BID atorvastatin: 80 mg = 1 tab(s), Oral, Daily bacitracin zinc 500 units/g topical ointment: 1 leopoldo, Topical, q8hr, PRN: Other (see comment) fluticasone 50 mcg/inh nasal spray: 50 mcg = 1 spray(s), Nasal, Daily, PRN: Allergy symptoms glucagon: 1 mg = 1 vial(s), Intramuscular, Daily, PRN: Blood Glucose glucose 40% oral gel: 37.5 gm = 1 EA, Oral, q30min, PRN: Low blood sugar melatonin: 3 mg = 1 tab(s), Oral, HS metFORMIN: 500 mg = 1 tab(s), Oral, BIDWM senna: 17.2 mg = 2 tab(s), Oral, HS traZODone: 50 mg = 1 tab(s), Oral, HS, PRN: Insomnia Documented Medications Documented Crestor 40 mg oral tablet: 40 mg = 1 tab(s), Oral, Daily, 0 Refill(s) Flomax 0.4 mg oral capsule: 0.4 mg = 1 cap(s), Oral, Daily, 0 Refill(s) Refresh Plus ophthalmic solution: 1 drop(s), Ophthalmic, TID, PRN: for dry eyes, 0 Refill(s) apixaban 2.5 mg oral tablet: 2.5 mg = 1 tab(s), Oral, BID, 0 Refill(s) fluorouracil: 0 Refill(s) fluticasone 50 mcg/inh nasal spray: 50 mcg = 1 spray(s), Nasal, Daily, 0 Refill(s) metFORMIN 500 mg oral tablet, extended release: 500 mg = 1 tab(s), Oral, BID, 0 Refill(s) multivitamin: 1 tab(s), Oral, Daily, 0 Refill(s) tretinoin: 0 Refill(s), Medications (17) Active Scheduled: (9) apixaban 2.5 mg tab [[facility]] 2.5 mg 1 tab(s), Oral, BID atorvastatin 80 mg Tab [[facility]] 80 mg 1 tab(s), Oral, Daily docusate sodium 100 mg Cap [[facility]] 100 mg 1 cap(s), Oral, BID insulin lispro (HumaLOG) 100 units/mL SubQ PEN [[facility]] Medium Dose Scale, Subcutaneous, QIDACHS melatonin 3 mg Tab [[facility]] 3 mg 1 tab(s), Oral, HS metFORMIN 500 mg ER Tab [[facility]] 500 mg 1 tab(s), Oral, BIDWM metoprolol 12.5 mg pre-split tablet [[facility]] 12.5 mg 1 tab(s), Oral, BID senna 8.6 mg Tab [[facility]] 17.2 mg 2 tab(s), Oral, HS tamsulosin 0.4 mg Oral Cap [[facility]] 0.4 mg 1 cap(s), Oral, Daily Continuous: (0) PRN: (8) acetaminophen 325 mg Tab [[facility]] 650 mg 2 tab(s), Oral, q4hr bacitracin zinc 500 units/g Top Oint UD [[facility]] 1 leopoldo, Topical, q8hr bisacodyl 10 mg Supp [[facility]] 10 mg 1 supp, Rectal, Daily fluticasone Nasal 50 mcg/inh Hilda [[facility]] 50 mcg 1 spray(s), Nasal, Daily glucagon recombinant 1 mg Inj [[facility]] 1 mg 1 vial(s), Intramuscular, Daily glucose 40% oral gel ([facility]] 37.5 gm 1 EA, Oral, q30min polyethylene glycol 3350 Oral Pwdr Recon [[facility]] 17 gm 1 packet(s), Oral, Daily traZODone 50 mg Tab [[facility]] 50 mg 1 tab(s), Oral, HS . Problem list: All Problems Afib / [id number] / Confirmed Basal cell carcinoma (BCC) / [id number] / Confirmed CAD (coronary artery disease) / [id number] / Confirmed GI bleed / [id number] / Confirmed S/P mitral valve repair / [id number] / Confirmed Hypertriglyceridemia / [id number] / Confirmed MVP (mitral valve prolapse) / [id number] / Confirmed PAD (peripheral artery disease) / [id number] / Confirmed DM2 (diabetes mellitus, type 2) / 214504470 / Confirmed, Active Problems (9) Afib Basal cell carcinoma (BCC) CAD (coronary artery disease) DM2 (diabetes mellitus, type 2) GI bleed Hypertriglyceridemia MVP (mitral valve prolapse) PAD (peripheral artery disease) S/P mitral valve repair Impression and Plan #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 #Cardiovascular HTN HLD - continue crestor 40. Metoprolol 12.5 bid continued from however pt would like to resume home carvedilol, after period permissive HTN afib - watchman procedure on hold until outpatient, after recovery from stroke. Continue apixaban 2.5 (pt declines recommended 5 bid) #DM2 CCD diet, ISS. lantus added at 10 units, with ISS most BGs <140 so stopped lantus metformin can be increased from 500 bid to 1000 bid if needed off lantus however pt prefers to remain on home dose 500 bid #GI prophylaxis proton pump inhibitor bid per stopped per pt preference as causes diarrhea per pt report #pain managed with acetaminophen, PRN #dispo home after 2 weeks LOS with f/u home health services as needed, planning d/c 11/26 f/u PCP neuro cards #Potential or actual clinically significant medication issues addressed per [facility] regulations: NO 35 min total time spent on chart review, team discussion, face to face eval Extracted from: Title:SOAP Note: Rehab Note Author:Flavia Zaman Date:11/18/23 Health Status Allergies: Allergic Reactions (All) Moderate Protonix- Diarrhea. Nonallergic Reactions (All) Unknown Aspirin- Gi bleeding., Allergies (2) Active Severity Reaction Protonix Moderate Diarrhea aspirin Unknown GI bleeding Medications Current medications: (Selected) Inpatient Medications Ordered Colace: 100 mg = 1 cap(s), Oral, BID Dulcolax Laxative: 10 mg = 1 supp, Rectal, Daily, PRN: Constipation Flomax: 0.4 mg = 1 cap(s), Oral, Daily Humalog (Lispro) Sliding Scale Medium Dose Algorithm: Medium Dose Scale, Subcutaneous, QIDACHS Metoprolol Tartrate: 12.5 mg = 1 tab(s), Oral, BID MiraLax: 17 gm = 1 packet(s), Oral, Daily, PRN: Constipation acetaminophen: 650 mg = 2 tab(s), Oral, q4hr, PRN: Pain apixaban: 2.5 mg = 1 tab(s), Oral, BID atorvastatin: 80 mg = 1 tab(s), Oral, Daily bacitracin zinc 500 units/g topical ointment: 1 leopoldo, Topical, q8hr, PRN: Other (see comment) fluticasone 50 mcg/inh nasal spray: 50 mcg = 1 spray(s), Nasal, Daily, PRN: Allergy symptoms glucagon: 1 mg = 1 vial(s), Intramuscular, Daily, PRN: Blood Glucose glucose 40% oral gel: 37.5 gm = 1 EA, Oral, q30min, PRN: Low blood sugar melatonin: 3 mg = 1 tab(s), Oral, HS metFORMIN: 500 mg = 1 tab(s), Oral, BIDWM senna: 17.2 mg = 2 tab(s), Oral, HS traZODone: 50 mg = 1 tab(s), Oral, HS, PRN: Insomnia Documented Medications Documented Crestor 40 mg oral tablet: 40 mg = 1 tab(s), Oral, Daily, 0 Refill(s) Flomax 0.4 mg oral capsule: 0.4 mg = 1 cap(s), Oral, Daily, 0 Refill(s) Refresh Plus ophthalmic solution: 1 drop(s), Ophthalmic, TID, PRN: for dry eyes, 0 Refill(s) apixaban 2.5 mg oral tablet: 2.5 mg = 1 tab(s), Oral, BID, 0 Refill(s) fluorouracil: 0 Refill(s) fluticasone 50 mcg/inh nasal spray: 50 mcg = 1 spray(s), Nasal, Daily, 0 Refill(s) metFORMIN 500 mg oral tablet, extended release: 500 mg = 1 tab(s), Oral, BID, 0 Refill(s) multivitamin: 1 tab(s), Oral, Daily, 0 Refill(s) tretinoin: 0 Refill(s), Medications (17) Active Scheduled: (9) apixaban 2.5 mg tab [[facility]] 2.5 mg 1 tab(s), Oral, BID atorvastatin 80 mg Tab [[facility]] 80 mg 1 tab(s), Oral, Daily docusate sodium 100 mg Cap [[facility]] 100 mg 1 cap(s), Oral, BID insulin lispro (HumaLOG) 100 units/mL SubQ PEN [[facility]] Medium Dose Scale, Subcutaneous, QIDACHS melatonin 3 mg Tab [[facility]] 3 mg 1 tab(s), Oral, HS metFORMIN 500 mg ER Tab [[facility]] 500 mg 1 tab(s), Oral, BIDWM metoprolol 12.5 mg pre-split tablet [[facility]] 12.5 mg 1 tab(s), Oral, BID senna 8.6 mg Tab [[facility]] 17.2 mg 2 tab(s), Oral, HS tamsulosin 0.4 mg Oral Cap [[facility]] 0.4 mg 1 cap(s), Oral, Daily Continuous: (0) PRN: (8) acetaminophen 325 mg Tab [[facility]] 650 mg 2 tab(s), Oral, q4hr bacitracin zinc 500 units/g Top Oint UD [[facility]] 1 leopoldo, Topical, q8hr bisacodyl 10 mg Supp [[facility]] 10 mg 1 supp, Rectal, Daily fluticasone Nasal 50 mcg/inh Hilda [[facility]] 50 mcg 1 spray(s), Nasal, Daily glucagon recombinant 1 mg Inj [[facility]] 1 mg 1 vial(s), Intramuscular, Daily glucose 40% oral gel ([facility]] 37.5 gm 1 EA, Oral, q30min polyethylene glycol 3350 Oral Pwdr Recon [[facility]] 17 gm 1 packet(s), Oral, Daily traZODone 50 mg Tab [[facility]] 50 mg 1 tab(s), Oral, HS . Problem list: All Problems Afib / [id number] / Confirmed Basal cell carcinoma (BCC) / [id number] / Confirmed CAD (coronary artery disease) / [id number] / Confirmed GI bleed / [id number] / Confirmed S/P mitral valve repair / [id number] / Confirmed Hypertriglyceridemia / [id number] / Confirmed MVP (mitral valve prolapse) / [id number] / Confirmed PAD (peripheral artery disease) / [id number] / Confirmed DM2 (diabetes mellitus, type 2) / 881324351 / Confirmed, Active Problems (9) Afib Basal cell carcinoma (BCC) CAD (coronary artery disease) DM2 (diabetes mellitus, type 2) GI bleed Hypertriglyceridemia MVP (mitral valve prolapse) PAD (peripheral artery disease) S/P mitral valve repair Impression and Plan #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 #Cardiovascular HTN HLD - continue crestor 40. Metoprolol 12.5 bid continued from however pt would like to resume home carvedilol, after period permissive HTN afib - watchman procedure on hold until outpatient, after recovery from stroke. Continue apixaban 2.5 (pt declines recommended 5 bid) #DM2 CCD diet, ISS. lantus added at 10 units, with ISS most BGs <140 so stopped lantus metformin can be increased from 500 bid to 1000 bid if needed off lantus #GI prophylaxis proton pump inhibitor bid per stopped per pt preference as causes diarrhea per pt report #pain managed with acetaminophen, PRN #dispo home after 2 weeks LOS with f/u home health services as needed, planning d/c 11/26 f/u PCP neuro cards #Potential or actual clinically significant medication issues addressed per CMS regulations: YES metformin reduced per pt preference Did the facility complete prescribed/recommended actions in response to the identified potentially clinically significant medication issues by midnight of the next calendar day? YES 35 min total time spent on chart review, team discussion, face to face eval Extracted from: Title:SOAP Note: Rehab Note Author:Flavia Zaman Date:11/17/23 Health Status Allergies: Nonallergic Reactions (All) Unknown Aspirin- Gi bleeding., Allergies (1) Active Severity Reaction aspirin Unknown GI bleeding Medications Current medications: (Selected) Inpatient Medications Ordered Colace: 100 mg = 1 cap(s), Oral, BID Dulcolax Laxative: 10 mg = 1 supp, Rectal, Daily, PRN: Constipation Flomax: 0.4 mg = 1 cap(s), Oral, Daily Humalog (Lispro) Sliding Scale Medium Dose Algorithm: Medium Dose Scale, Subcutaneous, QIDACHS Lantus: 10 unit(s) = 0.1 mL, Subcutaneous, Daily Metoprolol Tartrate: 12.5 mg = 1 tab(s), Oral, BID MiraLax: 17 gm = 1 packet(s), Oral, Daily, PRN: Constipation acetaminophen: 650 mg = 2 tab(s), Oral, q4hr, PRN: Pain apixaban: 2.5 mg = 1 tab(s), Oral, BID atorvastatin: 80 mg = 1 tab(s), Oral, Daily bacitracin zinc 500 units/g topical ointment: 1 leopoldo, Topical, q8hr, PRN: Other (see comment) fluticasone 50 mcg/inh nasal spray: 50 mcg = 1 spray(s), Nasal, Daily, PRN: Allergy symptoms glucagon: 1 mg = 1 vial(s), Intramuscular, Daily, PRN: Blood Glucose glucose 40% oral gel: 37.5 gm = 1 EA, Oral, q30min, PRN: Low blood sugar melatonin: 3 mg = 1 tab(s), Oral, HS metFORMIN: 500 mg = 1 tab(s), Oral, BID senna: 17.2 mg = 2 tab(s), Oral, HS traZODone: 50 mg = 1 tab(s), Oral, HS, PRN: Insomnia Documented Medications Documented Crestor 40 mg oral tablet: 40 mg = 1 tab(s), Oral, Daily, 0 Refill(s) Flomax 0.4 mg oral capsule: 0.4 mg = 1 cap(s), Oral, Daily, 0 Refill(s) Refresh Plus ophthalmic solution: 1 drop(s), Ophthalmic, TID, PRN: for dry eyes, 0 Refill(s) apixaban 2.5 mg oral tablet: 2.5 mg = 1 tab(s), Oral, BID, 0 Refill(s) fluorouracil: 0 Refill(s) fluticasone 50 mcg/inh nasal spray: 50 mcg = 1 spray(s), Nasal, Daily, 0 Refill(s) metFORMIN 500 mg oral tablet, extended release: 500 mg = 1 tab(s), Oral, BID, 0 Refill(s) multivitamin: 1 tab(s), Oral, Daily, 0 Refill(s) tretinoin: 0 Refill(s), Medications (18) Active Scheduled: (10) apixaban 2.5 mg tab [[facility]] 2.5 mg 1 tab(s), Oral, BID atorvastatin 80 mg Tab [[facility]] 80 mg 1 tab(s), Oral, Daily docusate sodium 100 mg Cap [[facility]] 100 mg 1 cap(s), Oral, BID insulin glargine 100 units/mL SubQ [[facility]] 10 unit(s) 0.1 mL, Subcutaneous, Daily insulin lispro (HumaLOG) 100 units/mL SubQ PEN [[facility]] Medium Dose Scale, Subcutaneous, QIDACHS melatonin 3 mg Tab [[facility]] 3 mg 1 tab(s), Oral, HS metFORMIN 500 mg ER Tab [[facility]] 500 mg 1 tab(s), Oral, BID metoprolol 12.5 mg pre-split tablet [[facility]] 12.5 mg 1 tab(s), Oral, BID senna 8.6 mg Tab [[facility]] 17.2 mg 2 tab(s), Oral, HS tamsulosin 0.4 mg Oral Cap [[facility]] 0.4 mg 1 cap(s), Oral, Daily Continuous: (0) PRN: (8) acetaminophen 325 mg Tab [[facility]] 650 mg 2 tab(s), Oral, q4hr bacitracin zinc 500 units/g Top Oint UD [[facility]] 1 leopoldo, Topical, q8hr bisacodyl 10 mg Supp [[facility]] 10 mg 1 supp, Rectal, Daily fluticasone Nasal 50 mcg/inh Hilda [[facility]] 50 mcg 1 spray(s), Nasal, Daily glucagon recombinant 1 mg Inj [[facility]] 1 mg 1 vial(s), Intramuscular, Daily glucose 40% oral gel ([facility]] 37.5 gm 1 EA, Oral, q30min polyethylene glycol 3350 Oral Pwdr Recon [[facility]] 17 gm 1 packet(s), Oral, Daily traZODone 50 mg Tab [[facility]] 50 mg 1 tab(s), Oral, HS . Problem list: All Problems Afib / [id number] / Confirmed Basal cell carcinoma (BCC) / [id number] / Confirmed CAD (coronary artery disease) / [id number] / Confirmed GI bleed / [id number] / Confirmed S/P mitral valve repair / [id number] / Confirmed Hypertriglyceridemia / [id number] / Confirmed MVP (mitral valve prolapse) / [id number] / Confirmed PAD (peripheral artery disease) / 6890136762 / Confirmed DM2 (diabetes mellitus, type 2) / 708401116 / Confirmed, Active Problems (9) Afib Basal cell carcinoma (BCC) CAD (coronary artery disease) DM2 (diabetes mellitus, type 2) GI bleed Hypertriglyceridemia MVP (mitral valve prolapse) PAD (peripheral artery disease) S/P mitral valve repair Impression and Plan #left BRUCE stroke #multifocal strokes s/p TPA residual right weakness, exp aphasia continue apixaban; held briefly for watchman procedure during which time he had strokes daily 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 #Cardiovascular HTN HLD - continue crestor 40. Metoprolol 12.5 bid continued from however pt would like to resume home carvedilol, after period permissive HTN afib - watchman procedure on hold until outpatient, after recovery from stroke. Continue apixaban 2.5 (pt declines recommended 5 bid) #DM2 CCD diet, ISS. lantus added at 10 units, with ISS most BGs <140 so stopping lantus and will increase metformin from 500 bid to 1000 bid given some BGs to 180s #GI prophylaxis proton pump inhibitor bid per stopped per pt preference #pain managed with acetaminophen, PRN #dispo home after 2 weeks LOS with f/u home health services as needed, planning d/c 11/26 f/u PCP neuro cards #Potential or actual clinically significant medication issues addressed per CMS regulations: YES lantus stopped and metformin increased Did the facility complete prescribed/recommended actions in response to the identified potentially clinically significant medication issues by midnight of the next calendar day? YES 35 min total time spent on chart review, team discussion, face to face eval Extracted from: Title:SOAP Note: Rehab Note Author:Flavia Zaman Date:11/14/23 Health Status Allergies: Nonallergic Reactions (All) Unknown Aspirin- Gi bleeding., Allergies (1) Active Severity Reaction aspirin Unknown GI bleeding Medications Current medications: (Selected) Inpatient Medications Ordered Colace: 100 mg = 1 cap(s), Oral, BID Dulcolax Laxative: 10 mg = 1 supp, Rectal, Daily, PRN: Constipation Flomax: 0.4 mg = 1 cap(s), Oral, Daily Humalog (Lispro) Sliding Scale Medium Dose Algorithm: Medium Dose Scale, Subcutaneous, QIDACHS Lantus: 10 unit(s) = 0.1 mL, Subcutaneous, Daily Metoprolol Tartrate: 12.5 mg = 1 tab(s), Oral, BID MiraLax: 17 gm = 1 packet(s), Oral, Daily, PRN: Constipation Protonix: 40 mg = 1 tab(s), Oral, BID acetaminophen: 650 mg = 2 tab(s), Oral, q4hr, PRN: Pain apixaban: 2.5 mg = 1 tab(s), Oral, BID atorvastatin: 80 mg = 1 tab(s), Oral, Daily bacitracin zinc 500 units/g topical ointment: 1 leopoldo, Topical, q8hr, PRN: Other (see comment) fluticasone 50 mcg/inh nasal spray: 50 mcg = 1 spray(s), Nasal, Daily glucagon: 1 mg = 1 vial(s), Intramuscular, Daily, PRN: Blood Glucose glucose 40% oral gel: 37.5 gm = 1 EA, Oral, q30min, PRN: Low blood sugar melatonin: 3 mg = 1 tab(s), Oral, HS metFORMIN: 500 mg = 1 tab(s), Oral, BID senna: 17.2 mg = 2 tab(s), Oral, HS traZODone: 50 mg = 1 tab(s), Oral, HS, PRN: Insomnia Documented Medications Documented Crestor 40 mg oral tablet: 40 mg = 1 tab(s), Oral, Daily, 0 Refill(s) Flomax 0.4 mg oral capsule: 0.4 mg = 1 cap(s), Oral, Daily, 0 Refill(s) Refresh Plus ophthalmic solution: 1 drop(s), Ophthalmic, TID, PRN: for dry eyes, 0 Refill(s) apixaban 2.5 mg oral tablet: 2.5 mg = 1 tab(s), Oral, BID, 0 Refill(s) fluorouracil: 0 Refill(s) fluticasone 50 mcg/inh nasal spray: 50 mcg = 1 spray(s), Nasal, Daily, 0 Refill(s) metFORMIN 500 mg oral tablet, extended release: 500 mg = 1 tab(s), Oral, BID, 0 Refill(s) multivitamin: 1 tab(s), Oral, Daily, 0 Refill(s) tretinoin: 0 Refill(s), Medications (19) Active Scheduled: (12) apixaban 2.5 mg tab [[facility]] 2.5 mg 1 tab(s), Oral, BID atorvastatin 80 mg Tab [[facility]] 80 mg 1 tab(s), Oral, Daily docusate sodium 100 mg Cap [[facility]] 100 mg 1 cap(s), Oral, BID fluticasone Nasal 50 mcg/inh Hilda [[facility]] 50 mcg 1 spray(s), Nasal, Daily insulin glargine 100 units/mL SubQ [[facility]] 10 unit(s) 0.1 mL, Subcutaneous, Daily insulin lispro (Huma[facility]) 100 units/mL SubQ PEN [[facility]] Medium Dose Scale, Subcutaneous, QIDACHS melatonin 3 mg Tab [[facility]] 3 mg 1 tab(s), Oral, HS metFORMIN 500 mg ER Tab [[facility]] 500 mg 1 tab(s), Oral, BID metoprolol 12.5 mg pre-split tablet [[facility]] 12.5 mg 1 tab(s), Oral, BID pantoprazole 40 mg Oral EC Tab [[facility]] 40 mg 1 tab(s), Oral, BID senna 8.6 mg Tab [[facility]] 17.2 mg 2 tab(s), Oral, HS tamsulosin 0.4 mg Oral Cap [[facility]] 0.4 mg 1 cap(s), Oral, Daily Continuous: (0) PRN: (7) acetaminophen 325 mg Tab [[facility]] 650 mg 2 tab(s), Oral, q4hr bacitracin zinc 500 units/g Top Oint UD [[facility]] 1 leopoldo, Topical, q8hr bisacodyl 10 mg Supp [[facility]] 10 mg 1 supp, Rectal, Daily glucagon recombinant 1 mg Inj [[facility]] 1 mg 1 vial(s), Intramuscular, Daily glucose 40% oral gel ([facility]] 37.5 gm 1 EA, Oral, q30min polyethylene glycol 3350 Oral Pwdr Recon [[facility]] 17 gm 1 packet(s), Oral, Daily traZODone 50 mg Tab [[facility]] 50 mg 1 tab(s), Oral, HS . Problem list: All Problems Afib / [id number] / Confirmed Basal cell carcinoma (BCC) / [id number] / Confirmed CAD (coronary artery disease) / 6728586177 / Confirmed GI bleed / [id number] / Confirmed S/P mitral valve repair / [id number] / Confirmed Hypertriglyceridemia / [id number] / Confirmed MVP (mitral valve prolapse) / [id number] / Confirmed PAD (peripheral artery disease) / 7328415704 / Confirmed DM2 (diabetes mellitus, type 2) / 785051605 / Confirmed, Active Problems (9) Afib Basal cell carcinoma (BCC) CAD (coronary artery disease) DM2 (diabetes mellitus, type 2) GI bleed Hypertriglyceridemia MVP (mitral valve prolapse) PAD (peripheral artery disease) S/P mitral valve repair Impression and Plan #left BRUCE stroke #multifocal strokes s/p TPA residual right weakness, aphasia continue apixaban; held briefly for watchman procedure during which time he had strokes daily 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 #Cardiovascular HTN HLD - continue crestor 40. Metoprolol 12.5 bid continued from however pt would like to resume home carvedilol, after period permissive HTN afib - watchman procedure on hold until outpatient, after recovery from stroke. Continue apixaban 2.5 (pt declines recommended 5 bid) #DM2 CCD diet, ISS. lantus added at 10 units, with ISS may be able to taper off this as his activity level here increases. #GI prophylaxis proton pump inhibitor bid per #pain managed with acetaminophen, PRN #dispo home after 2 weeks LOS with f/u home health services as needed, planning d/c 11/26 f/u PCP neuro cards #Potential or actual clinically significant medication issues addressed per CMS regulations: No potentially clinically significant medication issues. 35 min total time spent on chart review, team discussion, face to face eval Extracted from: Title:SOAP Note: Rehab Note Author:Flavia Zaman Date:11/13/23 Health Status Allergies: Nonallergic Reactions (All) Unknown Aspirin- Gi bleeding., Allergies (1) Active Severity Reaction aspirin Unknown GI bleeding Medications Current medications: (Selected) Inpatient Medications Ordered Colace: 100 mg = 1 cap(s), Oral, BID Dulcolax Laxative: 10 mg = 1 supp, Rectal, Daily, PRN: Constipation Flomax: 0.4 mg = 1 cap(s), Oral, Daily Humalog (Lispro) Sliding Scale Medium Dose Algorithm: Medium Dose Scale, Subcutaneous, QIDACHS Lantus: 10 unit(s) = 0.1 mL, Subcutaneous, Daily Metoprolol Tartrate: 12.5 mg = 1 tab(s), Oral, BID MiraLax: 17 gm = 1 packet(s), Oral, Daily, PRN: Constipation Protonix: 40 mg = 1 tab(s), Oral, BID acetaminophen: 650 mg = 2 tab(s), Oral, q4hr, PRN: Pain apixaban: 2.5 mg = 1 tab(s), Oral, BID atorvastatin: 80 mg = 1 tab(s), Oral, Daily bacitracin zinc 500 units/g topical ointment: 1 leopoldo, Topical, q8hr, PRN: Other (see comment) fluticasone 50 mcg/inh nasal spray: 50 mcg = 1 spray(s), Nasal, Daily glucagon: 1 mg = 1 vial(s), Intramuscular, Daily, PRN: Blood Glucose glucose 40% oral gel: 37.5 gm = 1 EA, Oral, q30min, PRN: Low blood sugar melatonin: 3 mg = 1 tab(s), Oral, HS metFORMIN: 500 mg = 1 tab(s), Oral, BID senna: 17.2 mg = 2 tab(s), Oral, HS traZODone: 50 mg = 1 tab(s), Oral, HS, PRN: Insomnia Documented Medications Documented Crestor 40 mg oral tablet: 40 mg = 1 tab(s), Oral, Daily, 0 Refill(s) Flomax 0.4 mg oral capsule: 0.4 mg = 1 cap(s), Oral, Daily, 0 Refill(s) Refresh Plus ophthalmic solution: 1 drop(s), Ophthalmic, TID, PRN: for dry eyes, 0 Refill(s) apixaban 2.5 mg oral tablet: 2.5 mg = 1 tab(s), Oral, BID, 0 Refill(s) fluorouracil: 0 Refill(s) fluticasone 50 mcg/inh nasal spray: 50 mcg = 1 spray(s), Nasal, Daily, 0 Refill(s) metFORMIN 500 mg oral tablet, extended release: 500 mg = 1 tab(s), Oral, BID, 0 Refill(s) multivitamin: 1 tab(s), Oral, Daily, 0 Refill(s) tretinoin: 0 Refill(s), Medications (19) Active Scheduled: (12) apixaban 2.5 mg tab [[facility]] 2.5 mg 1 tab(s), Oral, BID atorvastatin 80 mg Tab [[facility]] 80 mg 1 tab(s), Oral, Daily docusate sodium 100 mg Cap [[facility]] 100 mg 1 cap(s), Oral, BID fluticasone Nasal 50 mcg/inh Hilda [[facility]] 50 mcg 1 spray(s), Nasal, Daily insulin glargine 100 units/mL SubQ [[facility]] 10 unit(s) 0.1 mL, Subcutaneous, Daily insulin lispro (HumaLOG) 100 units/mL SubQ PEN [[facility]] Medium Dose Scale, Subcutaneous, QIDACHS melatonin 3 mg Tab [[facility]] 3 mg 1 tab(s), Oral, HS metFORMIN 500 mg ER Tab [[facility]] 500 mg 1 tab(s), Oral, BID metoprolol 12.5 mg pre-split tablet [[facility]] 12.5 mg 1 tab(s), Oral, BID pantoprazole 40 mg Oral EC Tab [[facility]] 40 mg 1 tab(s), Oral, BID senna 8.6 mg Tab [[facility]] 17.2 mg 2 tab(s), Oral, HS tamsulosin 0.4 mg Oral Cap [[facility]] 0.4 mg 1 cap(s), Oral, Daily Continuous: (0) PRN: (7) acetaminophen 325 mg Tab [[facility]] 650 mg 2 tab(s), Oral, q4hr bacitracin zinc 500 units/g Top Oint UD [[facility]] 1 leopoldo, Topical, q8hr bisacodyl 10 mg Supp [[facility]] 10 mg 1 supp, Rectal, Daily glucagon recombinant 1 mg Inj [[facility]] 1 mg 1 vial(s), Intramuscular, Daily glucose 40% oral gel ([facility]] 37.5 gm 1 EA, Oral, q30min polyethylene glycol 3350 Oral Pwdr Recon [[facility]] 17 gm 1 packet(s), Oral, Daily traZODone 50 mg Tab [[facility]] 50 mg 1 tab(s), Oral, HS . Problem list: All Problems Afib / [id number] / Confirmed Basal cell carcinoma (BCC) / [id number] / Confirmed CAD (coronary artery disease) / 2486113718 / Confirmed GI bleed / [id number] / Confirmed S/P mitral valve repair / [id number] / Confirmed Hypertriglyceridemia / 819321482 / Confirmed MVP (mitral valve prolapse) / [id number] / Confirmed PAD (peripheral artery disease) / [id number] / Confirmed DM2 (diabetes mellitus, type 2) / 513935411 / Confirmed, Active Problems (9) Afib Basal cell carcinoma (BCC) CAD (coronary artery disease) DM2 (diabetes mellitus, type 2) GI bleed Hypertriglyceridemia MVP (mitral valve prolapse) PAD (peripheral artery disease) S/P mitral valve repair Impression and Plan #left BRUCE stroke #multifocal strokes s/p TPA residual right weakness, aphasia continue apixaban; held briefly for watchman procedure during which time he had strokes daily PT OT BLOOD AND PLASMA LABORATORY ASSISTANT #dry check orthostatics encourage po flduis recheck BMP Mon #thrombocytopenia, mild platelets 139 recheck on Mon #DVT prophylaxis anti-embolus stockings, on apixaban for afib. #Cardiovascular HTN HLD - continue crestor 40. Metoprolol 12.5 bid continued from however pt would like to resume home carevdilol, after period permissive HTN afib - watchman procedure on hold untul outpatient, after recovery from stroke. Continue apixaban 2.5 (pt declines recommended 5 bid) #DM2 CCD diet, ISS. lantus added at 10 units, with ISS may be able to taper off this as his activity level here increases. #GI prophylaxis proton pump inhibitor bid per #pain managed with acetaminophen, PRN #dispo home after 2 weeks LOS with f/u home health services as needed f/u PCP neuro cards #Potential or actual clinically significant medication issues addressed per CMS regulations: No potentially clinically significant medication issues. 35 min total time spent on chart review, team discussion, face to face eval Extracted from: Title:nursing Author:Johanna Moreno Date: Pt a 83 yo [place] [facility] [place] w[place]c [place], s/p fall, multifocal stroke, tpa and SDH. pt transferred fro w/c to bed with 2 assist and FWW. admitted to #301 Hx Pt is alert and oriented x 3, WC. VSS assessment benign, HR IR , lungs clear, lower dim. + BS x4 (last BM yesterday 11/10). Hx DM II, weakness, aphasia, CAD, (stenting 2021 (is on plavix), A-Fib (eleqiis), HLD, MV repair, CAD, BPH, GI bleed, Pt able to answer admission questions, present to help, pt is aphasic and needs extra time with responses, Pt has advanced directives but would like more information, CM has been notified. Belongings documented in admission history (pt has glasses only). Admission process initiated. pt has been transferring with 1 x assist CGA (no walker per ), Falls prevention sheet signed, Orientation to call boo, telephone and TV remote gone over, pt has been informed to use call boo before getting OOB. pt has had Flu vaccine before admission (PCP). Covid test sent to LAB Extracted from: Title:General Rehab Admission H&P * stroke Autho r:Flavia Zaman MD Date:11/12/23 History of Present Illness Mr Bah is a 83 yo man with h/o afib on AC which was being held for watchman procedure, GIB, DM2, HLD, CAD s/p stent 2021, CHFrEF, basal cell CA, MVP s/p repair, PAD, who [place] [facility] was being held in preparation for upcoming watchman procedure, when he had acute right sided weakness. CT head negative for bleed, and CTA showed left distal BRUCE occlusion. Also had aphasia and dysarthria. NIHSS was 5. He received TPA. Telemetry showed known chronic afib. Permissive HTN allowed with BPs to 180. MRI confirmed left BRUCE stroke with additional punctate lesions bilaterally. Vascular imaging showed severe stenosis and occlusion right ICA, severe left ICA, and right vertebral. TTE showed EF 40-45%, moderately reduced but improved from prior, sclerotic aortic valve with mod stenosis (worse than prior), mild stenosis at mitral valve repair, severe left and mod right atrial enlargement, mildly dilated aortic root (stable from prior). 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 AC resumed day 5. Received plavix at , but by discharge was stopped as he had not been taking due to prior GI bleed. Carvedilol changed to metoprolol for unknown reasons, and PPI bid started although pt reports he does not want to be on this. The patient worked with PT OT and BLOOD AND PLASMA LABORATORY ASSISTANT throughout their stay however given residual deficits, requiring CGA to min assist, it was felt beneficial to transfer to an acute rehabilitation level of care for intensive PT OT and BLOOD AND PLASMA LABORATORY ASSISTANT with the goal of optimizing function and eventual return home. Review of Systems Constitutional: Negative. Pain assessment: Self-reports no pain. Eye: No blurring, No double vision. Ear/Nose/Mouth/Throat: No dysphagia. Respiratory: No shortness of breath, No cough, No wheezing, No sputum production. Cardiovascular: No chest pain, No palpitations, No bradycardia, No tachycardia, No leg swelling. Gastrointestinal: Constipation, No nausea, No vomiting, No diarrhea, No abdominal pain. Genitourinary: No dysuria, No urinary frequency, No urinary incontinence. Hematology/Lymphatics: Anemia. Endocrine: No hyperglycemia. Musculoskeletal: No back pain, No joint pain, No muscle pain, No joint swelling. Integumentary: No rash, No breakdown, No skin lesion. Neurologic: Weakness, No confusion, No numbness, No tingling, No dizziness, No memory loss, No speech problems. Psychiatric: No anxiety, No depression, No sleeping problems. Health Status Allergies: Nonallergic Reactions (All) Unknown Aspirin- Gi bleeding., Allergies (1) Active Severity Reaction aspirin Unknown GI bleeding Medications Current medications: (Selected) Inpatient Medications Ordered Colace: 100 mg = 1 cap(s), Oral, BID Crestor: 40 mg = 1 tab(s), Oral, Daily Dulcolax Laxative: 10 mg = 1 supp, Rectal, Daily, PRN: Constipation Flomax: 0.4 mg = 1 cap(s), Oral, Daily Humalog (Lispro) Sliding Scale Medium Dose Algorithm: Medium Dose Scale, Subcutaneous, QIDACHS Lantus: 10 unit(s) = 0.1 mL, Subcutaneous, Daily Metoprolol Tartrate: 12.5 mg = 1 tab(s), Oral, BID MiraLax: 17 gm = 1 packet(s), Oral, Daily, PRN: Constipation Protonix: 40 mg = 1 tab(s), Oral, BID acetaminophen: 650 mg = 2 tab(s), Oral, q4hr, PRN: Pain apixaban: 2.5 mg = 1 tab(s), Oral, BID bacitracin zinc 500 units/g topical ointment: 1 leopoldo, Topical, q8hr, PRN: Other (see comment) fluticasone 50 mcg/inh nasal spray: 50 mcg = 1 spray(s), Nasal, Daily glucagon: 1 mg = 1 vial(s), Intramuscular, Daily, PRN: Blood Glucose glucose 40% oral gel: 37.5 gm = 1 EA, Oral, q30min, PRN: Low blood sugar melatonin: 3 mg = 1 tab(s), Oral, HS metFORMIN: 500 mg = 1 tab(s), Oral, BID senna: 17.2 mg = 2 tab(s), Oral, HS traZODone: 50 mg = 1 tab(s), Oral, HS, PRN: Insomnia Documented Medications Documented Crestor 40 mg oral tablet: 40 mg = 1 tab(s), Oral, Daily, 0 Refill(s) Flomax 0.4 mg oral capsule: 0.4 mg = 1 cap(s), Oral, Daily, 0 Refill(s) Refresh Plus ophthalmic solution: 1 drop(s), Ophthalmic, TID, PRN: for dry eyes, 0 Refill(s) apixaban 2.5 mg oral tablet: 2.5 mg = 1 tab(s), Oral, BID, 0 Refill(s) fluorouracil: 0 Refill(s) fluticasone 50 mcg/inh nasal spray: 50 mcg = 1 spray(s), Nasal, Daily, 0 Refill(s) metFORMIN 500 mg oral tablet, extended release: 500 mg = 1 tab(s), Oral, BID, 0 Refill(s) multivitamin: 1 tab(s), Oral, Daily, 0 Refill(s) tretinoin: 0 Refill(s), Medications (19) Active Scheduled: (12) apixaban 2.5 mg tab [[facility]] 2.5 mg 1 tab(s), Oral, BID docusate sodium 100 mg Cap [[facility]] 100 mg 1 cap(s), Oral, BID fluticasone nasal 50 mcg 1 spray(s), Nasal, Daily insulin glargine 100 units/mL SubQ [[facility]] 10 unit(s) 0.1 mL, Subcutaneous, Daily insulin lispro (HumaLOG) 100 units/mL SubQ PEN [[facility]] Medium Dose Scale, Subcutaneous, QIDACHS melatonin 3 mg Tab [[facility]] 3 mg 1 tab(s), Oral, HS metFORMIN 500 mg ER Tab [[facility]] 500 mg 1 tab(s), Oral, BID metoprolol 12.5 mg pre-split tablet [[facility]] 12.5 mg 1 tab(s), Oral, BID pantoprazole 40 mg Oral EC Tab [[facility]] 40 mg 1 tab(s), Oral, BID rosuvastatin 40 mg 1 tab(s), Oral, Daily senna 8.6 mg Tab [[facility]] 17.2 mg 2 tab(s), Oral, HS tamsulosin 0.4 mg Oral Cap [[facility]] 0.4 mg 1 cap(s), Oral, Daily Continuous: (0) PRN: (7) acetaminophen 325 mg Tab [[facility]] 650 mg 2 tab(s), Oral, q4hr bacitracin zinc 500 units/g Top Oint UD [[facility]] 1 leopoldo, Topical, q8hr bisacodyl 10 mg Supp [[facility]] 10 mg 1 supp, Rectal, Daily glucagon recombinant 1 mg Inj [[facility]] 1 mg 1 vial(s), Intramuscular, Daily glucose 40% oral gel ([facility]] 37.5 gm 1 EA, Oral, q30min polyethylene glycol 3350 Oral Pwdr Recon [[facility]] 17 gm 1 packet(s), Oral, Daily traZODone 50 mg Tab [facility] 50 mg 1 tab(s), Oral, HS . Medications (19) Active Scheduled: (12) apixaban 2.5 mg tab [[facility]] 2.5 mg 1 tab(s), Oral, BID docusate sodium 100 mg Cap [[facility]] 100 mg 1 cap(s), Oral, BID fluticasone nasal 50 mcg 1 spray(s), Nasal, Daily insulin glargine 100 units/mL SubQ [[facility]] 10 unit(s) 0.1 mL, Subcutaneous, Daily insulin lispro (HumaLOG) 100 units/mL SubQ PEN [[facility]] Medium Dose Scale, Subcutaneous, QIDACHS melatonin 3 mg Tab [[facility]] 3 mg 1 tab(s), Oral, HS metFORMIN 500 mg ER Tab [[facility]] 500 mg 1 tab(s), Oral, BID metoprolol 12.5 mg pre-split tablet [[facility]] 12.5 mg 1 tab(s), Oral, BID pantoprazole 40 mg Oral EC Tab [[facility]] 40 mg 1 tab(s), Oral, BID rosuvastatin 40 mg 1 tab(s), Oral, Daily senna 8.6 mg Tab [[facility]] 17.2 mg 2 tab(s), Oral, HS tamsulosin 0.4 mg Oral Cap [[facility]] 0.4 mg 1 cap(s), Oral, Daily Continuous: (0) PRN: (7) acetaminophen 325 mg Tab [[facility]] 650 mg 2 tab(s), Oral, q4hr bacitracin zinc 500 units/g Top Oint UD [[facility]] 1 leopoldo, Topical, q8hr bisacodyl 10 mg Supp [[facility]] 10 mg 1 supp, Rectal, Daily glucagon recombinant 1 mg Inj [[facility]] 1 mg 1 vial(s), Intramuscular, Daily glucose 40% oral gel ([facility]] 37.5 gm 1 EA, Oral, q30min polyethylene glycol 3350 Oral Pwdr Recon [[facility]] 17 gm 1 packet(s), Oral, Daily traZODone 50 mg Tab [[facility]] 50 mg 1 tab(s), Oral, HS . Problem list: All Problems Afib / [id number] / Confirmed Basal cell carcinoma (BCC) / [id number] / Confirmed CAD (coronary artery disease) / 4504044220 / Confirmed GI bleed / [id number] / Confirmed S/P mitral valve repair / [id number] / Confirmed Hypertriglyceridemia / [id number] / Confirmed MVP (mitral valve prolapse) / [id number] / Confirmed, Active Problems (7) Afib Basal cell carcinoma (BCC) CAD (coronary artery disease) GI bleed Hypertriglyceridemia MVP (mitral valve prolapse) S/P mitral valve repair Physical Examination VS/Measurements Vital Signs 11/12/2023 12:00 EST Temperature Oral 36.6 DegC Respiratory Rate 16 br/min Systolic Blood Pressure 96 mmHg Diastolic Blood Pressure 62 mmHg SpO2 94 % , Vital Signs (last 24 hrs) Last Charted Temp Oral 36.6 DegC (NOV 12 12:00) Resp Rate 16 br/min (NOV 12 12:00) SBP 96 mmHg (NOV 12 12:00) DBP 62 mmHg (NOV 12 12:00) Height 167.6 cm (NOV 12 12:40) , Measurements from flowsheet : Measurements 11/12/2023 12:40 EST Height 167.6 cm Weight Dosing 69.491 kg General: Alert and oriented, No acute distress, Well developed, Well nourished. Eye: Extraocular movements are intact, Normal conjunctiva. Respiratory: Lungs are clear to auscultation, Respirations are non-labored. Cardiovascular: Normal rate, irreg HR c/w afib . Gastrointestinal: Soft, Non-tender, Non-distended, Normal bowel sounds. Integumentary: Intact, No rash. Mental status/ Cognition Alert. Oriented x 3. Cognition intact. able to follow verbal commands for MMT expressive aphasia, requires extra time for verbal responses but able to xiomara eneeds known. Sensorimotor/ Reflexes Normal sensation. strength good with some apraxia noted RUE 4+/5 RLE 4/5. DTRs normal symmetric. Psychiatric: Cooperative, Appropriate mood & affect. 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 Impairments: Hemiparesis, Fatigue. Speech/ language: Aphasia. Disabilities: Decreased: Mobility, Ability to transfer self, Ability to ambulate, Ability to dress self, Ability to feed self, Ability to bathe self, Ability to toilet self, Ability to self-care, Communication abilities, Problem-solving abilities, Safety. Limiting factors: . Nursing goals: Nutrition/diet: Maintain optimal caloric intake, Tolerate regular diet. Medication monitor for treatment: Effects, Adverse reactions. Bladder: Continent, Regulated with program. Bowel: Continent, Regulated with program. Skin: Promote wound healing, Prevent breakdown. Pain/Sleep: Regulate sleep cycle, Decrease pain level. Occupational therapy goals: Setup/ supervision, Equipment/DME assessment. Physical therapy goals: Setup/ supervision, Equipment/DME assessment, Home assessment. Speech Therapy goals: Setup/ supervision, Dysphagia assessment, Cognitive assessment, Language assessment. Therapeutic Recreation Goals: Leisure skills assessment, Improve social interaction with peers. Patient/Family Goals: Return to home independent, Return to home with assistance. Potential for improvement to meet goals: Excellent. Patient/Family Educational Needs: ADL assistance, Bowel/bladder program, Disease process education, Medication education, Safety awareness, Transfers. Estimated length of stay: 10 days. Disposition: Home. Code Status: Full code. Medical Plan DVT prophylaxis: anti-embolus stockings, on apixaban for afib. Skin: pressure relief, positioning, edema management. Respiratory: pulmonary hygiene incentive spirometry. Cardiovascular: HTN HLD - continue crestor 40. Metoprolol continued from however pt would like to resume home carevdilol, after period permissive HTN afib - watchman procedure on hold untul outpatient, after recovery from stroke. Continue apixaban 2.5 (pt declines recommended 5 bid) . Endocrine: DM2 - lantus added at 10 units, with ISS, however maybe able to taper off this as his activity level here increases. CCD diet, ISS. Diabetic management: accuchecks, carbohydrate control, oral agents, insulin. GI: prophylaxis (proton pump inhibitors, currently on PPI bid however pt was not taking this prior to admission and would like to stop), Constipation (laxative, stool softener). : retention (post void residual, voiding program, continue flomax and check PVRs, cath as needed >400cc). Nutrition: regular, reg with thins per BLOOD AND PLASMA LABORATORY ASSISTANT. Fluids/ Electrolytes: encourage po foods and fluids. Psych/ Sleep. Pain: managed with (acetaminophen, PRN). #[facility] medication review: Did a complete drug regimen review identify potential clinically significant medication issues? - YES ? Issues found during review - started on metoproliol unknown reasons, and unclear why on PPI bid Did the facility complete prescribed/recommended actions in response to the identified potential clinically significant medication issues by midnight of the next calendar day? - YES . #CMS High-Risk Drug Classes Is patient taking any medications in the following pharmacological classifications: Antipsychotic, Anticoagulant, Antibiotic, Opioid, Antiplatelet, Hypoglycemic (including insulin)? ? ? YES - Anticoagulant, Hypoglycemic (including insulin) Is there an indication noted for all medications in the drug classes noted above? ? ? YES, indication noted . Rehab Impairment Categories Impairment category/ codes table I & II Stroke: 01.2 Right body involvement (left brain). Post Admission Physician Evaluation: Documentation Reviewed: I have reviewed the Preadmission Screen. Functional status documented at preadmission: I agree with the patient's current functional status as documented in the preadmission screening. Risk for complications: I agree with the risk for clinical complications documented in the preadmission screening. Medical conditions: The patient's medical conditions can be managed in the rehab hospital, The plan of treatment is documented above in the history and physical. Patient participation in therapy: The patient can participate in, and will benefit from an intense therapy program at least 3 hours per day / 5 days per week. Therapies/services include:, Physical therapy, Occupational therapy, Speech language pathology, Rehabilitation Nursing, Case Management, Therapeutic Recreation, Information Engineer. Functional Status 11/26/23 History of Fall in Last 3 Months Flor Weber es 11/25/23 Mobility Tuan Slightly limited 11/12/23 Recent Travel History No recent travel Family Member Travel History No recent t ravel Medications acetaminophen 325 mg oral tablet 650 mg = 2 tab(s), Oral, q4hr, PRN PRN Pain, 0 Refill(s) Start Date: 11/25/23 Status: Ordered apixaban 2.5 mg oral tablet 2.5 mg = 1 tab(s), Oral, BID, 0 Refill(s) Start Date: 11/12/23 Status: Ordered Atorvastatin 80mg tablet 80 mg = 1 tab(s), Oral, Daily, # 30 tab(s), 0 Refill(s), Pharmacy: [id number], 1 tab(s) Oral Daily, 167.6, cm, 11/14/23 17:28:00 EST, Height, 69.491, kg, 11/12/23 12:41:00 EST, Weight Dosing Start Date: 11/25/23 Status: Ordered Colace 100 mg oral capsule 100 mg = 1 cap(s), Oral, BID, PRN PRN Constipation, 0 Refill(s) Start Date: 11/25/23 Status: Ordered Flomax 0.4 mg oral capsule 0.4 mg = 1 cap(s), Oral, Daily, 0 Refill(s) Start Date: 11/12/23 Status: Ordered fluticasone 50 mcg/inh nasal spray 50 mcg = 1 spray(s), Nasal, Daily, 0 Refill(s) Start Date: 11/12/23 Status: Ordered melatonin 3 mg oral tablet 3 mg = 1 tab(s), Oral, HS, PRN PRN Insomnia, 0 Refill(s) Start Date: 11/25/23 Status: Ordered metFORMIN 1000 mg oral tablet, extended release 1,000 mg = 1 tab(s), Oral, BID, # 60 tab(s), 0 Refill(s), Pharmacy: [id number], 1 tab(s) OralBID, 167.6, cm, 11/14/23 17:28:00 EST, Height, 69.491, kg, 11/12/23 12:41:00 EST, Weight Dosing Start Date: 11/25/23 Status: Ordered Metoprolol Tartrate 12.5 mg = 1 tab(s), Tab, Oral, Start date: 11/25/23 8:30:00 PM EST, 11/23/23 2:48:00 EST Start Date: 11/25/23 Stop Date: 11/25/23 Status: Completed Metoprolol Tartrate 12.5 mg = 1 tab(s), Tab, Oral, Start date: 11/21/23 8:30:00 PM EST, 11/12/23 13:25:00 EST Start Date: 11/21/23 Stop Date: 11/21/23 Status: Completed Metoprolol Tartrate 12.5 mg = 1 tab(s), Tab, Oral, Start date: 11/20/23 8:30:00 PM EST, 11/12/23 13:25:00 EST Start Date: 11/20/23 Stop Date: 11/20/23 Status: Completed metoprolol tartrate 25 mg oral tablet 12.5 mg = 0.5 tab(s), Oral, BID, # 30 tab(s), 0 Refill(s), Pharmacy: [id number], 0.5 tab(s) Oral BID, 167.6, cm, 11/14/23 17:28:00 EST, Height, 69.491, kg, 11/12/23 12:41:00 EST, Weight Dosing Start Date: 11/25/23 Status: Ordered multivitamin = 1 tab(s), Oral, Daily, 0 Refill(s) Start Date: 11/12/23 Status: Ordered Refresh Plus ophthalmic solution = 1 drop(s), Ophthalmic, TID, PRN PRN for dry eyes, 0 Refill(s) Start Date: 11/12/23 Status: Ordered senna 8.6 mg oral tablet 17.2 mg = 2 tab(s), Oral, HS, PRN PRN Constipation, 0 Refill(s) Start Date: 11/25/23 Status: Ordered Mental Status 11/25/23 Sensory Perception Tuan No impairment Level of Consciousness Alert Problem List Condition Confirmation Course Effective Dates Status Health Status Informant Afib Confirmed Active Basal cell carcinoma (BCC) Confirmed Active CAD (coronary artery disease) Confirmed Active GI bleed Confirmed Active S/P mitral valve repair Confirmed Active Hypertriglyceridemia Confirmed Active MVP (mitral valve prolapse) Confirmed Active PAD (peripheral artery disease) Confirmed Active DM2 (diabetes mellitus, type 2) Confirmed Active Results Laboratory List Name Date Glucose POC1 11/25/23 Glucose POC1 11/25/23 Blood Glucose Monitoring POC 11/25/23 Glucose POC1 11/25/23 Blood Glucose Monitoring POC 11/24/23 Blood Glucose Monitoring POC 11/24/23 .Hemogram DH (CBC DH) 11/23/23 Basic Metabolic Panel DH (BMP DH) 4 Magnesium DH 11/23/23 Blood Glucose Monitoring POC 11/22/23 Blood Glucose Monitoring POC 11/22/23 Blood Glucose Monitoring POC 11/22/23 .Hemogram DH (CBC DH) 11/18/23 Basic Metabolic Panel DH (BMP DH) 11/18/23 .Hemogram DH (CBC DH) 11/13/23 Basic Metabolic Panel DH 11/13/23 SARS-CoV-2 (COVID-19)/Influenza PCR (Claudia t) 11/12/23 Most recent to oldest [Reference Range]: 1 2 3 Anion Gap DH [5-15 mmol/L] 12 mmol/L (11/23/23 3:25 AM) 12 mmol/L (11/18/23 5:38 AM) 10 mmol/L (11/13/23 5:30 AM) Chloride Lvl DH [98-107 mmol/L] 105 mmol/L (11/23/23 3:25 AM) 106 mmol/L (11/18/23 5:38 AM) 106 mmol/L (11/13/23 5:30 AM) CO2 DH [22-31 mmol/L] 25 mmol/L (11/23/23 3:25 AM) 24 mmol/L (11/18/23 5:38 AM) 25 mmol/L (11/13/23 5:30 AM) Est GFR DH [>=60 mL/min/1.73 m2] 88 mL/min/1.73 m2 1 (11/23/23 3:25 AM) 89 mL/min/1.73 m2 2 (11/18/23 5:38 AM) 86 mL/min/1.73 m2 3 (11/13/23 5:30 AM) Glucose Lvl DH [65-99 mg/dL] 120 mg/dL *HI* (11/23/23 3:25 AM) 118 mg/dL *HI* (11/18/23 5:38 AM) 169 mg/dL *HI* (11/13/23 5:30 AM) Potassium Lvl DH [3.5-5.0 mmol/L] 4.4 mmol/L (11/23/23 3:25 AM) 3.9 mmol/L (11/18/23 5:38 AM) 4.3 mmol/L (11/13/23 5:30 AM) Sodium Lvl DH [135-145 mmol/L] 142 mmol/L (11/23/23 3:25 AM) 142 mmol/L (11/18/23 5:38 AM) 141 mmol/L (11/13/23 5:30 AM) BUN DH [10-20 mg/dL] 22 mg/dL *HI* (11/23/23 3:25 AM) 22 mg/dL *HI* (11/18/23 5:38 AM) 26 mg/dL *HI* (11/13/23 5:30 AM) Calcium Lvl DH [8.5-10.5 mg/dL] 9.3 mg/dL (11/23/23 3:25 AM) 8.9 mg/dL (11/18/23 5:38 AM) 9.2 mg/dL (11/13/23 5:30 AM) Magnesium Lvl DH [0.69-1.07 mmol/L] 0.54 mmol/L *LOW* (11/23/23 3:25 AM) Quality Indicator Present Yes (11/22/23 5:21 PM) Yes (11/22/23 11:30 AM) Yes (11/22/23 7:37 AM) Creatinine [0.80-1.50 mg/dL] .83 mg/dL (11/23/23 3:25 AM) .79 mg/dL *LOW* (11/18/23 5:38 AM) .90 mg/dL (11/13/23 5:30 AM) Glucose POC [65-99 mg/dL] 116 mg/dL *HI* (11/25/23 5:13 PM) 115 mg/dL *HI* (11/25/23 12:01 PM) 92 mg/dL (11/25/23 7:06 AM) Influenza A [Negative] Negative 4 (11/12/23 5:05 PM) Influenza B [Negative] Negative (11/12/23 5:05 PM) Hct DH [40.5-48.5 %] 43.3 % (11/23/23 3:25 AM) 44.2 % (11/18/23 5:38 AM) 46.3 % (11/13/23 5:30 AM) Hgb DH [13.7-16.5 g/dL] 14.9 g/dL (11/23/23 3:25 AM) 15.1 g/dL (11/18/23 5:38 AM) 15.8 g/dL (11/13/23 5:30 AM) MCHC DH [32.0-35.7 g/dL] 34.4 g/dL (11/23/23 3:25 AM) 34.2 g/dL (11/18/23 5:38 AM) 34.1 g/dL (11/13/23 5:30 AM) MCH DH [27.5-32.1 pg] 31.8 pg (11/23/23 3:25 AM) 31.3 pg (11/18/23 5:38 AM) 30.9 pg (11/13/23 5:30 AM) MCV DH [82.9-93.1 fL] 92.3 fL (11/23/23 3:25 AM) 91.5 fL (11/18/23 5:38 AM) 90.6 fL (11/13/23 5:30 AM) MPV DH [7.6-12.9 fL] 10.2 fL (11/23/23 3:25 AM) 10.6 fL (11/18/23 5:38 AM) 10.4 fL (11/13/23 5:30 AM) Platelet DH [145-357 x10(3)/mcL] 162 x10(3)/mcL (11/23/23 3:25 AM) 146 x10(3)/mcL (11/18/23 5:38 AM) 138 x10(3)/mcL *LOW* (11/13/23 5:30 AM) RBC DH [4.58-5.54 x10(6)/mcL] 4.69 x10(6)/mcL (11/23/23 3:25 AM) 4.83 x10(6)/mcL (11/18/23 5:38 AM) 5.11 x10(6)/mcL (11/13/23 5:30 AM) RDWCV DH [11.4-13.8 %] 13.1 % (11/23/23 3:25 AM) 12.7 % (11/18/23 5:38 AM) 12.5 % (11/13/23 5:30 AM) RDWSD DH [36.0-45.0 fL] 43.9 fL (11/23/23 3:25 AM) 42.5 fL (11/18/23 5:38 AM) 41.9 fL (11/13/23 5:30 AM) WBC DH [4.0-9.5 x10(3)/mcL] 5.4 x10(3)/mcL (11/23/23 3:25 AM) 6.5 x10(3)/mcL (11/18/23 5:38 AM) 7.2 x10(3)/mcL (11/13/23 5:30 AM) Blood Glucose, Capillary POC [65-99 mg/dL] 92 mg/dL (11/25/23 8:00 AM) 115 mg/dL *HI* (11/24/23 8:06 PM) 109 mg/dL *HI* (11/24/23 5:26 PM) SARS-CoV-2 (COVID-19) PCR [Not Detected] Not Detected 5 (11/12/23 5:05 PM) 1Result Comment: This patient's estimated GFR was calculated using the 2020 CKD- EPI equation. The estimated GFR can vary from the measured GFR by up to 30% in the absence of rapidly changing kidney function. Assessment of the estimated GFR is not appropriate when creatinine concentrations are rapidly changing. For clinical situations in which a more precise estimate of GFR is necessary, consider alternative methods of GFR estimation such as a 24-hour urine creatinine clearance. Assignment of CKD stage 1-5 for patients with an eGFR near the transition point between stages may be based on clinical assessment of muscle mass and symptoms in addition to eGFR. 2Result Comment: This patient's estimated GFR was calculated using the 2020 CKD- EPI equation. The estimated GFR can vary from the measured GFR by up to 30% in the absence of rapidly changing kidney function. Assessment of the estimated GFR is not appropriate when creatinine concentrations are rapidly changing. For clinical situations in which a more precise estimate of GFR is necessary, consider alternative methods of GFR estimation such as a 24-hour urine creatinine clearance. Assignment of CKD stage 1-5 for patients with an eGFR near the transition point between stages may be based on clinical assessment of muscle mass and symptoms in addition to eGFR. 3Result Comment: This patient's estimated GFR was calculated using the 2020 CKD- EPI equation. The estimated GFR can vary from the measured GFR by up to 30% in the absence of rapidly changing kidney function. Assessment of the estimated GFR is not appropriate when creatinine concentrations are rapidly changing. For clinical situations in which a more precise estimate of GFR is necessary, consider alternative methods of GFR estimation such as a 24-hour urine creatinine clearance. Assignment of CKD stage 1-5 for patients with an eGFR near the transition point between stages may be based on clinical assessment of muscle mass and symptoms in addition to eGFR. 4Interpretive Data: A positive test result indicates that influenza infection is likely.?? Negative results does not exclude influenza infection and should be interpreted in conjunction with other laboratory and clinical data available.?? In patients with high clinical suspicion of influenza, repeattesting may be warranted. 5Interpretive Data: Influenza A and Influenza B negative results should be considered presumptive insamples that have a positive SARS CoV-2 result. CDC COVID-19 criteria for testing on human specimens and clinical management guidance information are available at the CDC Coronavirus Disease 2019 (COVID- 19) webpage under Information for Healthcare Professionals (https://www.cdc.gov/coronavirus/2019-ncov/hcp/index.html). Additional information about this and other EUA tests can be found in provider and patient fact sheets at the following FDA website: https://www.fda.gov/medical-devices/prbstqjfmhl-vyyrhyr-4376-exwdd-16-lubckinxe- useauthorizations- medical-devices/nkgdv-rofevtepjdf-skmd https://diagnostics.[facility]/us/en/products/params/noama-kngf-abm-1-akqpdumni-e -a-mwtmakq-oaut-test.html Radiology Reports * Exam Date Time Procedure Performing Provider Status 11/23/23 2:[address] Head or Brain w/o Contrast Kurt ALAN; Modified Notes: (CT Head or Brain w/o Contrast) Reason For Exam: seizure like activity in the setting of recent stroke. CT HEAD OR BRAIN W/O CONTRAST EXAMINATION: CT HEAD OR BRAIN W/O CONTRAST CLINICAL HISTORY: seizure like activity in the setting of recent stroke. TECHNIQUE: CT head performed without intravenous contrast administration. COMPARISON: MRI 11/08/[address] 11/07/2023 FINDINGS: Serpiginous regions of petechial blood products along the region of left posterior frontal infarction. Surrounding cytotoxic edema with expected evolution. Local mass effect related to the cytotoxic edema. Unchanged sites of encephalomalacia involving the left frontal and left temporal lobe. Ventricles are normal in caliber. Similar confluent periventricular white matter hypoattenuation. The calvarium and extra calvarial soft tissues are unremarkable. Paranasal sinuses and mastoid air cells are clear. IMPRESSION: Petechial blood products in the site of now subacute left frontal infarction. No masslike hemorrhage. Thank you for letting us participate in the care of this patient. If you are a health care provider and have any questions regarding this report, please contact the number below. For patients who have questions please contact the health ambulatory care coordinator that requested your imaging first. Final Dictated: 11/23/2023 3:10 am Leland Gutierrez M.D. Signed (Electronic Signature): 11/23/2023 3:04 am Signed by: Leland Gutierrez M.D. Transcribed by: MEAGHAN Vital Signs Most recent to oldest [Reference Range]: 1 2 3 Temperature Oral [35.8-37.3 DegC] 36.4 DegC (11/26/23 7:30 AM) 36.5 DegC (11/25/23 8:00 PM) 37 DegC (11/24/23 8:00 PM) Temperature Oral (DegF) 97.52 DegF (11/26/23 7:30 AM) 97.7 DegF (11/25/23 8:00 PM) 98.6 DegF (11/24/23 8:00 PM) Temperature Temporal Artery [36.3-37.8 DegC] 37.2 DegC (11/13/23 7:00 PM) Temperature Temporal Artery (DegF) 98.96 DegF (11/13/23 7:00 PM) Apical Heart Rate [60-100 bpm] 65 bpm (11/25/23 8:58 PM) 86 bpm (11/21/23 9:04 PM) 80 bpm (11/20/23 8:21 PM) Peripheral Pulse Rate [60-100 bpm] 105 bpm *HI* (11/26/23 7:30 AM) 76 bpm (11/25/23 8:00 PM) 94 bpm (11/25/23 7:00 AM) Respiratory Rate [14-20 br/min] 18 br/min (11/25/23 8:00 PM) 18 br/min (11/25/23 7:00 AM) 18 br/min (11/24/23 8:00 PM) Blood Pressure [90-140/60-90 mmHg] 123/67mmHg (11/26/23 7:30 AM) 113/69mmHg (11/25/23 8:00 PM) Systolic Blood Pressure [90-140 mmHg] 96 mmHg (11/25/23 7:00 AM) Diastolic Blood Pressure [60-90 mmHg] 54 mmHg *LOW* (11/25/23 7:00 AM) Mean Arterial Pressure, Cuff [70-110 mmHg] 86 mmHg (11/26/23 7:30 AM) 84 mmHg (11/25/23 8:00 PM) 81 mmHg (1/15/24 8:00 PM) BP Site Right arm (11/25/23 8:00 PM) Right arm (11/25/23 7:00 AM) Right arm (11/24/23 8:00 PM) SpO2 [92-100 %] 96 % (11/26/23 7:30 AM) 96 % (11/25/23 8:00 PM) 96 % (11/25/23 7:00 AM) SpO2 Location Right hand (11/25/23 8:00 PM) Right hand (11/24/23 8:00 PM) Left hand (11/24/23 7:00 AM) BP Method Automatic (11/26/23 7:30 AM) Automatic (11/25/23 8:00 PM) Automatic (11/25/23 7:00 AM) Height 167.6 cm (11/14/23 5:28 PM) 167.6 cm (11/12/23 1:07 PM) 167.6 cm (11/12/23 12:40 PM) Weight 69.1 kg (11/20/23 5:01 PM) Weight Dosing 69.491 kg (11/12/23 12:40 PM) Social History Social History Type Response Smoking Status Smoking tobacco use: Never tobacco user;Never entered on: 11/12/23 Sex Hospital Discharge Instructions Patient Education 11/26/2023 12:54:01 Stroke Prevention Stroke Prevention Some medical conditions and behaviors can lead to a higher chance of having a stroke. You can help prevent a stroke by eating healthy, exercising, not smoking, and managing any medical conditions youhave. Stroke is a leading cause of functional impairment. Primary prevention is particularly important because a majority of strokes are first-time events. Stroke changes the lives of not only those who experience a stroke but also their family and other caregivers. How can this condition affect me? A stroke is a medical emergency and should be treated right away. A stroke can lead to brain damageand can sometimes be life-threatening. If a person gets medical treatment right away, there is a better chance of surviving and recovering from a stroke. What can increase my risk? The following medical conditions may increase your risk of a stroke: ??? Cardiovascular disease. ??? High blood pressure (hypertension). ??? Diabetes. ??? High cholesterol. ??? Sickle cell disease. ??? Blood clotting disorders (hypercoagulable state). ??? Obesity. ??? Sleep disorders (obstructive sleep apnea). Other risk factors include: ??? Being older than age 60. ??? Having a history of blood clots, stroke, or mini-stroke (transient ischemic attack, TIA). ??? Genetic factors, such as race, ethnicity, or a family history of stroke. ??? Smoking cigarettes or using other tobacco products. ??? Taking control pills, especially if you also use tobacco. ??? Heavy use of alcohol or drugs, especially cocaine and methamphetamine. ??? Physical inactivity. What actions can I take to prevent this? Manage your health conditions ??? High cholesterol levels. ??? Eating a healthy diet is important for preventing high cholesterol. If cholesterol cannot be managed through diet alone, you may need to take medicines. ??? Take any prescribed medicines to control your cholesterol as told by your health care provider. ??? Hypertension. ??? To reduce your risk of stroke, try to keep your blood pressure below 130/80. ??? Eating a healthy diet and exercising regularly are important for controlling blood pressure. Ifthese steps are not enough to manage your blood pressure, you may need to take medicines. ??? Take any prescribed medicines to control hypertension as told by your health care provider. ??? Ask your health care provider if you should monitor your blood pressure at home. ??? Have your blood pressure checked every year, even if your blood pressure is normal. Blood pressure increases with age and some medical conditions. ??? Diabetes. ??? Eating a healthy diet and exercising regularly are important parts of managing your blood sugar(glucose). If your blood sugar cannot be managed through diet and exercise, you may need to take medicines. ??? Take any prescribed medicines to control your diabetes as told by your health care provider. ??? Get evaluated for obstructive sleep apnea. Talk to your health care provider about getting a sleep evaluation if you snore a lot or have excessive sleepiness. ??? Make sure that any other medical conditions you have, such as atrial fibrillation or atherosclerosis, are managed. Nutrition Follow instructions from your health care provider about what to eat or drink to help manage your health condition. These instructions may include: ??? Reducing your daily calorie intake. ??? Limiting how much salt (sodium) you use to 1,500 milligrams (mg) each day. ??? Using only healthy fats for cooking, such as olive oil, canola oil, or sunflower oil. ??? Eating healthy foods. You can do this by: ??? Choosing foods that are high in fiber, such as whole grains, and fresh fruits and vegetables. ??? Eating at least 5 servings of fruits and vegetables a day. Try to fill one- half of your plate with fruits and vegetables at each meal. ??? Choosing lean protein foods, such as lean cuts of meat, poultry without skin, fish, tofu, beans, and nuts. ??? Eating low-fat dairy products. ??? Avoiding foods that are high in sodium. This can help lower blood pressure. ??? Avoiding foods that have saturated fat, trans fat, and cholesterol. This can help prevent high cholesterol. ??? Avoiding processed and prepared foods. ??? Counting your daily carbohydrate intake. Lifestyle ??? If you drink alcohol: ??? Limit how much you have to: ??? 0???1 drink a day for women who are not . ??? 0???2 drinks a day for men. ??? Know how much alcohol is in your drink. In the [place] one drink equals one 12 oz bottle of beer (355mL), one 5 oz glass of wine (148mL), or one 1?? oz glass of hard liquor (44mL). ??? Do not use any products that contain nicotine or tobacco. These products include cigarettes, chewing tobacco, and vaping devices, such as e-cigarettes. If you need help quitting, ask your health care provider. ??? Avoid secondhand smoke. ??? Do not use drugs. Activity ??? Try to stay at a healthy weight. ??? Get at least 30 minutes of exercise on most days, such as: ??? Fast walking. ??? Biking. ??? Swimming. Medicines ??? Take ryqs-tvv-iaoibra and prescription medicines only as told by your health care provider. Aspirin or blood thinners (antiplatelets or anticoagulants) may be recommended to reduce your risk of forming blood clots that can lead to stroke. ??? Avoid taking control pills. Talk to your health care provider about the risks of taking control pills if: ??? You are over 35 years old. ??? You smoke. ??? You get very bad headaches. ??? You have had a blood clot. Where to find more information ??? [place] [employer]: www.strokeassociation.org Get help right away if: ??? You or a loved one has any symptoms of a stroke. BE FAST is an easy way to remember the main warning signs of a stroke: ??? B - Balance. Signs are dizziness, sudden trouble walking, or loss of balance. ??? E - Eyes. Signs are trouble seeing or a sudden change in vision. ??? F - Face. Signs are sudden weakness or numbness of the face, or the face or eyelid drooping on one side. ??? A - Arms. Signs are weakness or numbness in an arm. This happens suddenly and usually on one side of the body. ??? S - Speech. Signs are sudden trouble speaking, slurred speech, or trouble understanding what people say. ??? T - Time. Time to call emergency services. Write down what time symptoms started. ??? You or a loved one has other signs of a stroke, such as: ??? A sudden, severe headache with no known cause. ??? Nausea or vomiting. ??? Seizure. These symptoms may represent a serious problem that is an emergency. Do not wait to see if the symptoms will go away. Get medical help right away. Call your local emergency services (911 in the [place] Do not drive yourself to the hospital. Summary ??? You can help to prevent a stroke by eating healthy, exercising, not smoking, limiting alcohol intake, and managing any medical conditions you may have. ??? Do not use any products that contain nicotine or tobacco. These include cigarettes, chewing tobacco, and vaping devices, such as e-cigarettes. If you need help quitting, ask your health care provider. ??? Remember BE FAST for warning signs of a stroke. Get help right away if you or a loved one hasany of these signs. This information is not intended to replace advice given to you by your health care provider. Make sure you discuss any questions you have with your health care provider. Document Revised: 05/28/2021 Document Reviewed: 05/28/2021 Elsevier Patient Education ?? 2022 [employer] Follow Up Care 11/12/2023 10:18:19 With:Bobby Das Address: [address] [place] [id number] When:12/03/2023 12:40:00 Comments:Please arrive 15 minutes prior to your appointment time for a follow up with your primary care provider With:Esmer Sotomayor Address: [place] [address]- Business (1) When:12/29/2023 08:00:00 Comments:Please arrive 15 minutes prior to your appointment time at fittings tight[facility] area [facility] for a follow up with neurology Discharge summary * Lissette Mckinney: PERFORM Event Display: Discharge Note Authored Date: Patient assessed at start of shift, assessment benign, no concerns, VSS pt denied pain/SOB/CP, +BM today per pt. No therapy today, am BS 155, no insulin ordered. Patient took am meds with sips of water. Discharge binder complete and reviewed with patient and , questions answered, both stated understanding. Pt escorted to exit by Eliana Trinidad, all belongings taken, pt transported home via [facility]. Pt had no concerns or needs at time of discharge. [Electronically Signed on: 11/26/2023 13:50 EST] Lissette Mckinney RN [Verified on: 11/26/2023 13:50 EST] Lissette Mckinney RN * Flavia Zaman MD: PERFORM, SIGN, VERIFY, MODIFY, SIGN Event Display: Discharge Summary Authored Date: Patient: ETTA BAH Age: 83 years Sex: Male : 1940 Associated Diagnoses: None Author: Flavia Zaman MD History of Present Illness Mr Bah is a 83 yo man with h/o afib on AC which was being held for watchman procedure, GIB, DM2, HLD, CAD s/p stent 2021, CHFrEF, basal cell CA, MVP s/p repair, PAD, [place] [facility] [place] being [place] in preparation for upcoming watchman procedure, when he had acute right sided weakness. CT head negative for bleed, and CTA showed left distal BRUCE occlusion. Also had aphasia anddysarthria. NIHSS was 5. He received TPA. Telemetry showed known chronic afib. Permissive HTN allowed with BPs to 180. MRI confirmed left ACAstroke with additional punctate lesions bilaterally. Vascular imaging showed severe stenosis and occlusion right ICA, severe left ICA, and right vertebral. TTE showed EF 40-45%, moderately reduced but improved from prior, sclerotic aortic valve with mod stenosis (worse than prior), mild stenosis atmitral valve repair, severe left and mod right atrial enlargement, mildly dilated aortic root (stable from prior). 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 AC resumed day 5. Received plavix at , but by discharge was stopped as he had not been taking due to prior GI bleed. Carvedilol changed to metoprolol for unknown reasons, and PPI bid started although pt reports he does not want to be on this. The patient worked with PT OT and BLOOD AND PLASMA LABORATORY ASSISTANT throughout their stay however given residual deficits, requiring CGA to min assist, it was felt beneficial to transfer to an acute rehabilitation level of care for intensive PT OT and BLOOD AND PLASMA LABORATORY ASSISTANT with the goal of optimizing function and eventual return home. Histories Past Medical History: Active Afib (6278940077) CAD (coronary artery disease) (5255137820) Basal cell carcinoma (BCC) (347342614) Hypertriglyceridemia (948613947) GI bleed (124599949) S/P mitral valve repair (0320456568) DM2 (diabetes mellitus, type 2) (286938659) PAD (peripheral artery disease) (8874363104) Procedure history: No active procedure history items have been selected or recorded. Social History Social & Psychosocial History Social History Tobacco Never tobacco user Tobacco Use:. Never Smokeless Tobacco Use:. Electronic Cigarette/Vaping Electronic Cigarette Use: Never. Psychosocial History No active psychosocial history has been recorded . Social History Social & Psychosocial History Social History Tobacco Never tobacco user Tobacco Use:. Never Smokeless Tobacco Use:. Electronic Cigarette/Vaping Electronic Cigarette Use: Never. Psychosocial History No active psychosocial history has been recorded . Results Review Results review Labs (Last four charted values) WBC 5.4 (NOV 23) 6.5 (NOV 18) 7.2 (NOV 13) Hgb 14.9 (NOV 23) 15.1 (NOV 18) 15.8 (NOV 13) Hct 43.3 (NOV 23) 44.2 (NOV 18) 46.3 (NOV 13) Plt 162 (NOV 23) 146 (NOV 18) L 138 (NOV 13) Na 142 (NOV 23) 142 (NOV 18) 141 (NOV 13) K 4.4 (NOV 23) 3.9 (NOV 18) 4.3 (NOV 13) CO2 25 (NOV 23) 24 (NOV 18) 25 (NOV 13) Cl 105 (NOV 23) 106 (NOV 18) 106 (NOV 13) Cr .83 (NOV 23) L .79 (NOV 18) .90 (NOV 13) 0.87 (NOV 12) BUN H 22 (NOV 23) H 22 (NOV 18) H 26 (NOV 13) Glucose H 120 (NOV 23) H 118 (NOV 18) H 169 (NOV 13) Mg L 0.54 (NOV 23) Ca 9.3 (NOV 23) 8.9 (NOV 18) 9.2 (NOV 13) Health Status Allergies: Allergic Reactions (All) Moderate Protonix- Diarrhea. Nonallergic Reactions (All) Unknown Aspirin- Gi bleeding., Allergies (2) Active Severity Reaction Protonix Moderate Diarrhea aspirin Unknown GI bleeding Current medications: Home Medications (12) Active acetaminophen 325 mg oral tablet 650 mg = 2 tab(s), PRN, Oral, q4hr apixaban 2.5 mg oral tablet 2.5 mg = 1 tab(s), Oral, BID Atorvastatin 80mg tablet 80 mg = 1 tab(s), Oral, Daily Colace 100 mg oral capsule 100 mg = 1 cap(s), PRN, Oral, BID Flomax 0.4 mg oral capsule 0.4 mg = 1 cap(s), Oral, Daily fluticasone 50 mcg/inh nasal spray 50 mcg = 1 spray(s), Nasal, Daily melatonin 3 mg oral tablet 3 mg = 1 tab(s), PRN, Oral, HS metFORMIN 1000 mg oral tablet, extended release 1,000 mg = 1 tab(s), Oral, BID metoprolol tartrate 25 mg oral tablet 12.5 mg = 0.5 tab(s), Oral, BID multivitamin 1 tab(s), Oral, Daily Refresh Plus ophthalmic solution 1 drop(s), PRN, Ophthalmic, TID senna 8.6 mg oral tablet 17.2 mg = 2 tab(s), PRN, Oral, HS Problem list: All Problems Afib / [id number] / Confirmed Basal cell carcinoma (BCC) / 853192852 / Confirmed CAD (coronary artery disease) / 3600825780 / Confirmed GI bleed / 938932635 / Confirmed S/P mitral valve repair / [id number] / Confirmed Hypertriglyceridemia / 291487769 / Confirmed MVP (mitral valve prolapse) / [id number] / Confirmed PAD (peripheral artery disease) / 0768516780 / Confirmed DM2 (diabetes mellitus, type 2) / 054035737 / Confirmed, Active Problems (9) Afib Basal cell carcinoma (BCC) CAD (coronary artery disease) DM2 (diabetes mellitus, type 2) GI bleed Hypertriglyceridemia MVP (mitral valve prolapse) PAD (peripheral artery disease) S/P mitral valve repair Health Maintenance Health Maintenance Pending (in the next year) OverDue Influenza Vaccine due 07/11/23 and every 1 year(s) Due Adult Wellness Exam due 11/25/23 and every 1 year(s) Annual Wellness Visit (Medicare) due 11/25/23 and every 1 year(s) Body Mass Index Check due 11/25/23 and every 1 year(s) DM - Communication with Managing Provider due 11/25/23 and every 1 year(s) DM - Eye Exam due 11/25/23 and every 1 year(s) DM - Foot Exam due 11/25/23 and every 1 year(s) DM - HgbA1c due 11/25/23 and every 3 month(s) DM - Microalbumin due 11/25/23 and every 1 year(s) Glaucoma Screening due 11/25/23 and every 1 year(s) HIV Screening (if sexually active) due 11/25/23 and every 1 year(s) Initial Preventative Physical Examination (Medicare) due 11/25/23 One-time only Lipid Disorders Screening due 11/25/23 and every 1 year(s) Prostate Cancer Screening due 11/25/23 Variable frequency Sexually Transmitted Infections: Behavioral Counseling due 11/25/23 and every 1 year(s) Syphilis Screening (if sexually active) due 11/25/23 and every 1 year(s) Tobacco Use Screening due 11/25/23 and every 1 year(s) Due In Future Depression Screening not due until 11/12/24 and every 1 year(s) Satisfied (in the past 1 year) Satisfied Depression Screening on 11/12/23. Satisfied by Johanna Moreno Fall Risk Screening on 11/25/23. Satisfied by Daniela Adame High Blood Pressure Screening on 11/25/23. Satisfied by Daniela Adame Type 2 Diabetes Mellitus Screening on 11/25/23. Satisfied by Gely Li, [place] Course #left BRUCE stroke #multifocal strokes s/p TPA Continued on low dose apixaban; held briefly for watchman procedure during which time he had strokes. Now resumed back on apixaban, initially 5 bid recommended however pt declined this in favor of low dose 2.5 given h/o GI bleed in past. Following the strokes, he had residual right weakness, and expressive aphasia. He worked daily with PT OT and by discharge is ambulating with supervision only. #mld thrombocytopenia, resolved Platelets 139->146, WNL #DVT prophylaxis Encouraged anti-embolus stockings, and remained on apixaban for afib. #Cardiovascular HTN HLD - Continued statin atorvastatin 80. Metoprolol 12.5 bid continued as well. afib - watchman procedure on hold until outpatient, after recovery from stroke. Continued on apixaban 2.5 (pt declines recommended 5 bid) #DM2 Continued on CCD diet, ISS to cover high BGs. Metformin 500 bid per home, and lantus added at 10 units continued on admission. BGs were relatively well controlled so lantus stopped and metformin increased from 500 bid to 1000 bid with resulting BGs 100-140 very well controlled. Will f/u with PCP after discharge re ongoing management DM2 #GI prophylaxis Proton pump inhibitor continued per , however pt self-discontinued due to diarrhea, per pt preference #dispo He is being discharged to home 11/26 after 2 weeks LOS with f/u home health services PT OT. Outpatient f/u is with PCP, neuro, cardiology Physical Examination VS/Measurements Vital Signs (last 24 hrs) Last Charted Temp Oral 37 DegC (NOV 24 20:00) Heart Rate Peripheral 94 bpm (NOV 25 07:00) Resp Rate 18 br/min (NOV 25 07:) SBP 96 mmHg (NOV 25 07:00) DBP L 54 mmHg (NOV 25:) Discharge Plan Instructions to patient Discharge medications: Home Medications (12) Active acetaminophen 325 mg oral tablet 650 mg = 2 tab(s), PRN, Oral, q4hr apixaban 2.5 mg oral tablet 2.5 mg = 1 tab(s), Oral, BID Atorvastatin 80mg tablet 80 mg = 1 tab(s), Oral, Daily Colace 100 mg oral capsule 100 mg = 1 cap(s), PRN, Oral, BID Flomax 0.4 mg oral capsule 0.4 mg = 1 cap(s), Oral, Daily fluticasone 50 mcg/inh nasal spray 50 mcg = 1 spray(s), Nasal, Daily melatonin 3 mg oral tablet 3 mg = 1 tab(s), PRN, Oral, HS metFORMIN 1000 mg oral tablet, extended release 1,000 mg = 1 tab(s), Oral, BID metoprolol tartrate 25 mg oral tablet 12.5 mg = 0.5 tab(s), Oral, BID multivitamin 1 tab(s), Oral, Daily Refresh Plus ophthalmic solution 1 drop(s), PRN, Ophthalmic, TID senna 8.6 mg oral tablet 17.2 mg = 2 tab(s), PRN, Oral, HS . Discharge disposition: Discharge to home: with family. Post discharge services: occupational therapy, physical therapy, speech-language pathology, services provided via outpatient rehabilitation. #Did the facility contact and complete physician prescribed/recommended actions by midnight of the next calendar day each time potential clinically significant medication issues were identified sincethe admission? YES #CMS High-Risk Drug Classes Is patient taking any medications in the following pharmacological classifications: Antipsychotic, Anticoagulant, Antibiotic, Opioid, Antiplatelet, Hypoglycemic (including insulin)? YES?? - Anticoagulant, Hypoglycemic (including insulin) Is there an indication noted for all medications in the drug classes noted above? YES, indication noted I have personally seen and examined the patient and they are ready for discharge. Discharge Summary Plan Discharge Status: improved. Discharge instructions given: to patient. Discharge disposition: discharge to home (into the care of family member, with home health care, self care). Prescriptions: continue same medications. Discharge Information Discharge Summary Information Admitted 11/12/2023 Discharged 11/26/2023 Diagnosis Principle diagnosis: stroke [Electronically Signed on: 11/25/2023 13:31 EST] Flavia Zaman MD, MD [Electronically Signed on: 11/26/2023 12:06 EST] Flavia Zaman MD, MD [Verified on: 11/25/2023 13:31 EST] Flavia Zaman MD, MD Discharge instructions * Namita Horn.: PERFORM Event Display: Discharge Instructions Authored Date: [id number] * Lissette Mckinney: MODIFY, PERFORM Event Display: Discharge Instructions Authored Date: [id number] BAHETTA NICKERSON :1940 Age:83 years Sex:Male Visit Date:11/12/2023 Primary Care Physician: [facility] Discharge Instructions We would like to thank you for allowing us to assist you with your healthcare needs. The following includes patient education materials and information regarding your injury/illness. Your Next Steps Instructions From Your Care Team 1.?? Continue taking your medications the way you were taking them on Rehab.?? You have prescriptions for those medications that are new to you.?? If you wish to stop or start a medication, contact your PCP first. 2.?? Call your MD or seek medical attention if you have weakness or numbness of your face or one ofyou limbs.?? Difficulty or slurred speech, or a change in your vision.?? It is important to seek medical attention as soon as possible, as these symptoms could be related to another stroke. 3.?? You should no drive or operate heavy equipment until cleared by your neurologist. 4.?? Alternate periods of rest and activity. 5.?? Do not consume alcoholic beverages until cleared by your neurologist. 6.?? Continue to monitor your blood sugar 3-4 times per day,?? write down your results so that you can review them with your PCP at your follow up appointment. Call us at?? with any questions related to your discharge or care during your stay. Please come to the Rehab Reunion in the Fall!?? You will receive an invitation in the mail. Follow Up Appointments Follow Up with??Bobby Das When:??12/03/2023 12:40 PM EST Why: Please arrive 15 minutes prior to your appointment time for a follow up with your primary careprovider Where: [address] [place] [id number]- Follow Up with??Esmer Sotomayor When:??12/29/2023 08:00 AM EST Why: Please arrive 15 minutes prior to your appointment time at [facility] [address] for a follow up with neurology Where: [place] [address]- Business (1) The Following Services Have Been Arranged for You Special Services and Community Resources - None Medications What How Much When Instructions Next Dose New acetaminophen (acetaminophen 325 mg oral tablet) 2 tab(s) Oral Every 4 hours as needed for Pain New atorvastatin (Atorvastatin 80mg tablet) 1 tab(s) Oral Every day Pickup at [facility] New docusate (Colace 100 mg oral capsule) 1 cap Oral 2 times a day (scheduled) as needed for Constipation New melatonin (melatonin 3 mg oral tablet) 1 tab(s) Oral Bedtime as needed for Insomnia New metoprolol (metoprolol tartrate 25 mg oral tablet) 0.5 tab(s) Oral 2 times a day (scheduled) Pickup at [facility] New senna (senna 8.6 mg oral tablet) 2 tab(s) Oral Bedtime as needed for Constipation Changed metFORMIN (metFORMIN 1000 mg oral tablet, extended release) 1 tab(s) Oral 2 times a day (scheduled) Pickup at [facility] Unchanged apixaban (apixaban 2.5 mg oral tablet) 1 tab(s) Oral 2 times a day (scheduled) Unchanged fluticasone nasal (fluticasone 50 mcg/ inh nasal spray) 1 spray(s) Nasal Every day Unchanged multivitamin 1 tab(s) Oral Every day Unchanged ocular lubricant (Refresh Plus ophthalmic solution) 1 Drops Ophthalmic (the eye) 3 times a day (scheduled) as needed for for dry eyes Unchanged tamsulosin (Flomax 0.4 mg oral capsule) 1 cap Oral Every day Pharmacy Information [facility]: [address] [place], [place] [id number] [phone] ?? What How Much When Comments Stop Taking fluorouracil Stop Taking rosuvastatin (Crestor 40 mg oral tablet) 1 tab(s) Oral Every day Stop Taking tretinoin Your Summary Your Care Team Admitting Physician - Flavia Zaman MD Attending Physician - Flavia Zaman MD Primary Care Physician - Bobby Das Your Diagnosis Acute ischemic left BRUCE stroke Problems Ongoing - Any problem that you are currently receiving treatment for. Afib Basal cell carcinoma (BCC) CAD (coronary artery disease) DM2 (diabetes mellitus, type 2) GI bleed Hypertriglyceridemia MVP (mitral valve prolapse) PAD (peripheral artery disease) S/P mitral valve repair Tests Performed/Pending Basic Metabolic Panel DH Blood Glucose Monitoring POC BMP DH CBC DH Glucose POC1 Magnesium DH SARS-CoV-2 (COVID-19)/Influenza PCR (Jing) CT Head or Brain w/o Contrast Discharge Vitals Temperature??(Oral) 97.5 ??F (36.4 ??C) Heart Rate??(Peripheral) 105 Respiratory Rate?? 18 Blood Pressure?? 123/67?? Allergies Protonix??(Diarrhea) aspirin??(GI bleeding) Education Materials Stroke Prevention Some medical conditions and behaviors can lead to a higher chance of having a stroke. You can help prevent a stroke by eating healthy, exercising, not smoking, and managing any medical conditions youhave. Stroke is a leading cause of functional impairment. Primary prevention is particularly important because a majority of strokes are first-time events. Stroke changes the lives of not only those who experience a stroke but also their family and other caregivers. How can this condition affect me? A stroke is a medical emergency and should be treated right away. A stroke can lead to brain damageand can sometimes be life-threatening. If a person gets medical treatment right away, there is a better chance of surviving and recovering from a stroke. What can increase my risk? The following medical conditions may increase your risk of a stroke: ? Cardiovascular disease. ? High blood pressure (hypertension). ? Diabetes. ? High cholesterol. ? Sickle cell disease. ? Blood clotting disorders (hypercoagulable state). ? Obesity. ? Sleep disorders (obstructive sleep apnea). Other risk factors include: ? Being older than age 60. ? Having a history of blood clots, stroke, or mini-stroke (transient ischemic attack, TIA). ? Genetic factors, such as race, ethnicity, or a family history of stroke. ? Smoking cigarettes or using other tobacco products. ? Taking control pills, especially if you also use tobacco. ? Heavy use of alcohol or drugs, especially cocaine and methamphetamine. ? Physical inactivity. What actions can I take to prevent this? Manage your health conditions ? High cholesterol levels. ? Eating a healthy diet is important for preventing high cholesterol. If cholesterol cannot be managed through diet alone, you may need to take medicines. ? Take any prescribed medicines to control your cholesterol as told by your health care provider. ? Hypertension. ? To reduce your risk of stroke, try to keep your blood pressure below 130/80. ? Eating a healthy diet and exercising regularly are important for controlling blood pressure. If these steps are not enough to manage your blood pressure, you may need to take medicines. ? Take any prescribed medicines to control hypertension as told by your health care provider. ? Ask your health care provider if you should monitor your blood pressure at home. ? Have your blood pressure checked every year, even if your blood pressure is normal. Blood pressure increases with age and some medical conditions. ? Diabetes. ? Eating a healthy diet and exercising regularly are important parts of managing your blood sugar (glucose). If your blood sugar cannot be managed through diet and exercise, you may need to take medicines. ? Take any prescribed medicines to control your diabetes as told by your health care provider. ? Get evaluated for obstructive sleep apnea. Talk to your health care provider about getting a sleep evaluation if you snore a lot or have excessive sleepiness. ? Make sure that any other medical conditions you have, such as atrial fibrillation or atherosclerosis, are managed. Nutrition Follow instructions from your health care provider about what to eat or drink to help manage your health condition. These instructions may include: ? Reducing your daily calorie intake. ? Limiting how much salt (sodium) you use to 1,500 milligrams (mg) each day. ? Using only healthy fats for cooking, such as olive oil, canola oil, or sunflower oil. ? Eating healthy foods. You can do this by: ? Choosing foods that are high in fiber, such as whole grains, and fresh fruits and vegetables. ? Eating at least 5 servings of fruits and vegetables a day. Try to fill one-half of your plate with fruits and vegetables at each meal. ? Choosing lean protein foods, such as lean cuts of meat, poultry without skin, fish, tofu, beans, and nuts. ? Eating low-fat dairy products. ? Avoiding foods that are high in sodium. This can help lower blood pressure. ? Avoiding foods that have saturated fat, trans fat, and cholesterol. This can help prevent high cholesterol. ? Avoiding processed and prepared foods. ? Counting your daily carbohydrate intake. Lifestyle ? If you drink alcohol: ? Limit how much you have to: ? 0???1 drink a day for women who are not . ? 0???2 drinks a day for men. ? Know how much alcohol is in your drink. In the [place] one drink equals one 12 oz bottle of beer (355mL), one 5 oz glass of wine (148mL), or one 1?? oz glass of hard liquor (44mL). ? Do not use any products that contain nicotine or tobacco. These products include cigarettes, chewing tobacco, and vaping devices, such as e-cigarettes. If you need help quitting, ask your health careprovider. ? Avoid secondhand smoke. ? Do not use drugs. Activity ? Try to stay at a healthy weight. ? Get at least 30 minutes of exercise on most days, such as: ? Fast walking. ? Biking. ? Swimming. Medicines ? Take krbk-whp-rlzggot and prescription medicines only as told by your health care provider. Aspirinor blood thinners (antiplatelets or anticoagulants) may be recommended to reduce your risk of forming blood clots that can lead to stroke. ? Avoid taking control pills. Talk to your health care provider about the risks of taking birthcontrol pills if: ? You are over 35 years old. ? You smoke. ? You get very bad headaches. ? You have had a blood clot. Where to find more information ? [place] [employer]: www.strokeassociation.org Get help right away if: ? You or a loved one has any symptoms of a stroke. BE FAST is an easy way to remember the main warning signs of a stroke: ? B - Balance. Signs are dizziness, sudden trouble walking, or loss of balance. ? E - Eyes. Signs are trouble seeing or a sudden change in vision. ? F - Face. Signs are sudden weakness or numbness of the face, or the face or eyelid drooping on one side. ? A - Arms. Signs are weakness or numbness in an arm. This happens suddenly and usually on one side of the body. ? S - Speech. Signs are sudden trouble speaking, slurred speech, or trouble understanding what peoplesay. ? T - Time. Time to call emergency services. Write down what time symptoms started. ? You or a loved one has other signs of a stroke, such as: ? A sudden, severe headache with no known cause. ? Nausea or vomiting. ? Seizure. These symptoms may represent a serious problem that is an emergency. Do not wait to see if the symptoms will go away. Get medical help right away. Call your local emergency services (911 in the [place] Do not drive yourself to the hospital. Summary ? You can help to prevent a stroke by eating healthy, exercising, not smoking, limiting alcohol intake, and managing any medical conditions you may have. ? Do not use any products that contain nicotine or tobacco. These include cigarettes, chewing tobacco, and vaping devices, such as e-cigarettes. If you need help quitting, ask your health care provider. ? Remember BE FAST for warning signs of a stroke. Get help right away if you or a loved one has anyof these signs. This information is not intended to replace advice given to you by your health care provider. Make sure you discuss any questions you have with your health care provider. Document Revised: 05/28/2021 Document Reviewed: 05/28/2021 [employer] Patient Education ?? 2022 [employer]. Medication Information metformin?? (met FOR min) ?? Glumetza, MetFORMIN (Eqv-Fortamet), MetFORMIN (Eqv-Glucophage XR), MetFORMIN (Eqv-Glumetza), Riomet? What is the most important information I should know about metformin? You should not use this medicine if you have severe kidney disease, metabolic acidosis, or diabeticketoacidosis (call your doctor for treatment). ?? If you need to have any type of x-ray or CT scan using a dye that is injected into your veins, you may need to temporarily stop taking metformin. ?? You may develop??lactic acidosis,??a dangerous build-up of lactic acid in your blood. ??Call your doctor or get emergency medical help if you have unusual muscle pain, trouble breathing, stomach pain, dizziness, feeling cold, or feeling very weak or tired. ?? What is metformin? Metformin is used together with diet and exercise to improve blood sugar control in adults with type 2 diabetes mellitus. ? Metformin is sometimes used together with insulin or other medications, but??metformin is not for treating type 1 diabetes. ?? Metformin may also be used for purposes not listed in this medication guide. ?? What should I discuss with my healthcare provider before taking metformin? You should not use metformin if you are allergic to it, or if you have: ?severe kidney disease; or ?metabolic acidosis or diabetic ketoacidosis (call your doctor for treatment). ?? If you need to have surgery or any type of x-ray or CT scan using a dye that is injected into your veins, you may need to temporarily stop taking metformin. ??Be sure your caregivers know ahead of time that you are using this medication. ?? Tell your doctor if you have ever had: ?kidney disease (your kidney function may need to be checked before you take this medicine); ?high ketone levels in your blood or urine; ?heart disease, congestive heart failure;?liver disease; or ?if you also use insulin, or other oral diabetes medications. ?? You may develop??lactic acidosis,??a dangerous build-up of lactic acid in your blood. ??This may bemore likely if you have other medical conditions, a severe infection, chronic alcoholism, or if youare 65 or older. ??Ask your doctor about your risk. ?? Follow your doctor's instructions about using this medicine??if you are or you become .??Controlling diabetes is very important during , and having high blood sugar may cause complications in both the mother and the baby. ?? Metformin may stimulate ovulation in a premenopausal woman and may increase the risk of unintended . ??Talk to your doctor about your risk. ?? You should not breastfeed while using this medicine. ?? Metformin should not be given to a child younger than 10 years old. ??Some forms of metformin are not approved for use by anyone younger than 18 years old.? How should I take metformin? Follow all directions on your prescription label and read all medication guides or instruction sheets. ??Your doctor may occasionally change your dose. ??Use the medicine exactly as directed. ?? Take metformin with a meal, unless your doctor tells you otherwise. ??Some forms of metformin are taken only once daily with the evening meal. ??Follow your doctor's instructions. ?? Do not crush, chew, or break an??extended-release tablet.??Swallow it whole.? Measure??liquid medicine??carefully. Use the dosing syringe provided, or use a medicine dose-measuring device (not a kitchen spoon). ?? Shake the??oral suspension??(liquid) before you measure a dose. Use the dosing syringe provided, oruse a medicine dose-measuring device (not a kitchen spoon). ?? Some tablets are made with a shell that is not absorbed or melted in the body. Part of this shell may appear in your stool. This is normal and will not make the medicine less effective. ?? You may have low blood sugar??(hypoglycemia)??and feel very hungry, dizzy, irritable, confused, anxious, or shaky. ??To quickly treat hypoglycemia, eat or drink a fast-acting source of sugar (fruit juice, hard candy, crackers, raisins, or non-diet soda). ?? Your doctor may prescribe a glucagon injection kit in case you have severe hypoglycemia. ??Be sure your family or close friends know how to give you this injection in an emergency. ?? Blood sugar levels can be affected by stress, illness, surgery, exercise, alcohol use, or skipping meals. ??Ask your doctor before changing your dose or medication schedule. ?? Metformin is only part of a complete treatment program that may also include diet, exercise, weightcontrol, blood sugar testing, and special medical care. ??Follow your doctor's instructions very closely. ?? Store at room temperature away from moisture, heat, and light. ?? Your doctor may have you take extra vitamin B12 while you are taking metformin. ??Take only the amount of vitamin B12 that your doctor has prescribed. ?? What happens if I miss a dose? Take the medicine as soon as you can, but skip the missed dose if it is almost time for your next dose.??Do not??take two doses at one time.? What happens if I overdose? Seek emergency medical attention or call the Poison Help line at .?An overdose cancause severe hypoglycemia or lactic acidosis. ?? What should I avoid while taking metformin? Avoid drinking alcohol. It lowers blood sugar and may increase your risk of lactic acidosis. ?? What are the possible side effects of metformin? Get emergency medical help if you have??signs of an allergic reaction:?hives; difficult breathing; swelling of your face, lips, tongue, or throat. ?? Some people using metformin develop lactic acidosis, which can be fatal. ??Get emergency medical help if you have even mild symptoms such as: ?unusual muscle pain; ?feeling cold; ?trouble breathing; ?feeling dizzy, light-headed, tired, or very weak; ?stomach pain, vomiting; or ?slow or irregular heart rate. ?? Common side effects may include: ?low blood sugar; ?nausea, upset stomach; or ?diarrhea. ?? This is not a complete list of side effects and others may occur. Call your doctor for medical advice about side effects. You may report side effects to FDA at 3-092-XWL-4322. ?? What other drugs will affect metformin? Many drugs can affect metformin,??making this medicine less effective or increasing your risk of lactic acidosis. ?? This includes prescription and tpwn-ikf-mjzogbw medicines, vitamins, and herbal products. ??Not all possible interactions are listed here.?Tell your doctor about all your current m edicines and any medicine you start or stop using. ?? Where can I get more information? Your pharmacist can provide more information about metformin. ?? Remember, keep this and all other medicines out of the reach of children, never share your medicines with others, and use this medication only for the indication prescribed. ?? Every effort has been made to ensure that the information provided by [employer]') is accurate, up-to-date, and complete, but no guarantee is made to that effect. Drug information contained herein may be time sensitive. [employer] information has been compiled for use by healthcare practitioners and consumers in the [place] and therefore [employer] does not warrant that uses outside of the [place] are appropriate, unless specifically indicated otherwise. [employer] drug information does not endorse drugs, diagnose patients or recommend therapy. [employer] drug information isan informational resource designed to assist licensed healthcare practitioners in caring for their p atients and/or to serve consumers viewing this service as a supplement to, and not a substitute for, the expertise, skill, knowledge and judgment of healthcare practitioners. The absence of a warningfor a given drug or drug combination in no way should be construed to indicate that the drug or drug combination is safe, effective or appropriate for any given patient. [facility] does not assume any responsibility for any aspect of healthcare administered with the aid of information [facility] provides. The information contained herein is not intended to cover all possible uses, directions, precautions, warnings, drug interactions, allergic reactions, or adverse effects. If you have questions about the drugs you are taking, check with your doctor, nurse or pharmacist.? Copyright 8963-1232 [facility]. Version: .. Revision Date: 06/06/2023. ?? metoprolol (oral/injection)?? (me TOE pro lol) ?? Kapspargo Sprinkle, Lopressor, Metoprolol Succinate ER, Metoprolol Tartrate, Toprol-XL? What is the most important information I should know about metoprolol? You should not use this medicine if you have a serious heart problem (heart block, sick sinus syndrome, slow heart rate), severe circulation problems, severe heart failure, or a history of slow heartbeats that caused fainting. ?? What is metoprolol? Metoprolol is a beta-norma that affects the heart and circulation (blood flow through arteries and veins). ?? Metoprolol is used to treat angina (chest pain) and hypertension (high blood pressure). ??It is also used to ??lower your risk of or needing to be hospitalized for heart failure. ?? Metoprolol??injection??is used during the early phase of a heart attack to lower the risk of . ?? Metoprolol may also be used for other purposes not listed in this medication guide. ?? What should I discuss with my healthcare provider before taking metoprolol? You should not use this medicine if you are allergic to metoprolol, or other beta-blockers (atenolol, carvedilol, labetalol, nadolol, nebivolol, propranolol, sotalol, and others), or if you have: ?a serious heart problem such as heart block, sick sinus syndrome, or slow heart rate; ?severe circulation problems; ?severe heart failure (that required you to be in the hospital); or ?a history of slow heart beats that have caused you to faint. ?? Tell your doctor if you have ever had: ?asthma, chronic obstructive pulmonary disease (COPD), sleep apnea, or other breathing disorder; ?diabetes (taking metoprolol may make it harder for you to tell when you have low blood sugar); ?liver disease; ?congestive heart failure; ?problems with circulation (such as Raynaud's syndrome); ?a thyroid disorder; or ?pheochromocytoma (tumor of the adrenal gland). ?? Do not give this medicine to a child without medical advice. ?? Tell your doctor if you are or plan to become . ??It is not known whether metoprolol will harm an unborn baby. ??However, having high blood pressure during may cause complications such as diabetes or eclampsia (dangerously high blood pressure that can lead to medical problems in both mother and baby). ??The benefit of treating hypertension may outweigh any risks to the baby.? Ask a doctor before using this medicine if you are breast-feeding.?Metoprolol can pass into breast milk and may cause dry skin, dry mouth, diarrhea, constipation, or slow heartbeats in your baby. ? How should I take metoprolol? Follow all directions on your prescription label and read all medication guides or instruction sheets. ??Your doctor may occasionally change your dose. ??Use the medicine exactly as directed. ?? Metoprolol should be taken with a meal or just after a meal. ?? Take the medicine at the same time each day. ? Swallow the??capsule??whole and do not crush, chew, break, or open it. ?? A??Toprol XL??tablet can be divided in half if your doctor has told you to do so. ??Swallow the half-tablet whole, without chewing or crushing. ? Measure??liquid medicine??carefully. Use the dosing syringe provided, or use a medicine dose-measuring device (not a kitchen spoon). ?? You will need frequent medical tests, and your blood pressure will need to be checked often. ?? If you need surgery, tell the surgeon ahead of time that you are using metoprolol. ? You should not stop using metoprolol suddenly.?Stopping suddenly may make your condition worse. ?? If you have high blood pressure,??keep using this medicine even if you feel well.?High blood pressure often has no symptoms. ??You may need to use metoprolol for the rest of your life. ?? Store at room temperature away from moisture and heat. ?? Metoprolol??injection??is given as an infusion into a vein. ??A healthcare provider will give you this injection in a medical setting where your heart and blood pressure can be monitored. ??Metoprolol injections are given for only a short time before switching you to the??oral??form of this medicine. ? What happens if I miss a dose? Skip the missed dose and use your next dose at the regular time. ??Do not??use two doses at one time. ?? What happens if I overdose? Seek emergency medical attention or call the Poison Help line at . ?? What should I avoid while taking metoprolol? Avoid driving or hazardous activity until you know how this medicine will affect you. ??Your reactions could be impaired. ?? Drinking alcohol can increase certain side effects of metoprolol. ?? What are the possible side effects of metoprolol? Get emergency medical help if you have??signs of an allergic reaction:?hives; difficulty breathing; swelling of your face, lips, tongue, or throat. ?? Call your doctor at once if you have: ?very slow heartbeats; ?a light-headed feeling, like you might pass out; ?shortness of breath (even with mild exertion), swelling, rapid weight gain; or ?cold feeling in your hands and feet. ?? Common side effects may include: ?dizziness, tired feeling; ?depression, confusion, memory problems; ?nightmares, trouble sleeping; ?diarrhea; or ?mild itching or rash. ?? This is not a complete list of side effects and others may occur. Call your doctor for medical advice about side effects. You may report side effects to FDA at 4-233-RKP-1836. ?? What other drugs will affect metoprolol? Tell your doctor about all your current medicines.?Many drugs can affect metoprolol, especially: ?any other heart or blood pressure medications; ?epinephrine (Epi-Pen); ?an antidepressant; ?an ergot medicine--dihydroergotamine, ergonovine, ergotamine, methylergonovine; or ?an MAO inhibitor--isocarboxazid, linezolid, phenelzine, rasagiline, selegiline, tranylcypromine. ?? This list is not complete and many other drugs may affect metoprolol.??This includes prescription and zczn-sis-wezokys medicines, vitamins, and herbal products. Not all possible drug interactions arelisted here. ?? Where can I get more information? Your pharmacist can provide more information about metoprolol. ?? Remember, keep this and all other medicines out of the reach of children, never share your medicines with others, and use this medication only for the indication prescribed. ?? Every effort has been made to ensure that the information provided by [employer]. [employer] is accurate, up-to-date, and complete, but no guarantee is made to that effect. Drug information contained herein may be time sensitive. [employer] information has been compiled for use by healthcare practitioners and consumers in the [place] and therefore [employer] does not warrant that uses outside of the [place] are appropriate, unless specifically indicated otherwise. [employer] drug information does not endorse drugs, diagnose patients or recommend therapy. [employer] drug information isan informational resource designed to assist licensed healthcare practitioners in caring for their p atients and/or to serve consumers viewing this service as a supplement to, and not a substitute for, the expertise, skill, knowledge and judgment of healthcare practitioners. The absence of a warningfor a given drug or drug combination in no way should be construed to indicate that the drug or drug combination is safe, effective or appropriate for any given patient. [employer] does not assume any responsibility for any aspect of healthcare administered with the aid of information [employer] provides. The information contained herein is not intended to cover all possible uses, directions, precautions, warnings, drug interactions, allergic reactions, or adverse effects. If you have questions about the drugs you are taking, check with your doctor, nurse or pharmacist.? Copyright [id number] [facility]. Version: 19.. Revision Date: 06/18/2023. ?? apixaban?? (a PIX a ban) ?? Eliquis? What is the most important information I should know about apixaban? Apixaban increases your risk of severe or fatal bleeding,??especially if you take certain medicinesat the same time (including some qrhh-vzm-zgunpog medicines). ??Tell your doctor about all medicines you have recently used. ?? Call your doctor at once if you have signs of bleeding such as:?easy bruising, unusual bleeding,unexpected pain or swelling, feeling very weak or dizzy, bleeding gums, nosebleeds, heavy menstrualbleeding, blood in your urine or stools, coughing up blood or vomit that looks like coffee grounds,or any bleeding that will not stop. ?? Apixaban can cause a very serious blood clot around your spinal cord that can lead to long-term or permanent paralysis.??This type of blood clot can occur during a spinal tap or spinal anesthesia (epidural), especially if you have a genetic spinal defect, if you use a spinal catheter, if you've hadspinal surgery or repeated spinal taps, or if you use other drugs that can affect blood clotting. ? Get emergency medical help if you have??symptoms of a spinal cord blood clot??such as tingling, numbness, or muscle weakness especially in your legs and feet. ?? Do not stop taking apixaban unless your doctor tells you to. ??Stopping suddenly can increase your risk of blood clot or stroke.? What is apixaban? Apixaban is used to lower the risk of stroke caused by a blood clot in people with a heart rhythm disorder called atrial fibrillation. ? Apixaban is also used after hip or knee replacement surgery to prevent a type of blood clot called deep vein thrombosis (DVT), which can lead to blood clots in the lungs (pulmonary embolism). ? Apixaban is also used to treat DVT or pulmonary embolism (PE), and to lower your risk of having a repeat DVT or PE. ?? Apixaban may also be used for purposes not listed in this medication guide. ?? What should I discuss with my healthcare provider before taking apixaban? You should not take apixaban if you are allergic to it, or if you have active bleeding from a surgery, injury, or other cause. ?? Apixaban may cause you to bleed more easily, especially if you have a bleeding disorder that is inherited or caused by disease. ?? Tell your doctor if you have an artificial heart valve, or if you have ever had: ?bleeding problems; ?antiphospholipid syndrome, especially if you have a triple positive antibody test; or ?liver or kidney disease. ?? Apixaban can cause a very serious blood clot around your spinal cord if you undergo a spinal tap orreceive spinal anesthesia (epidural). ??This type of blood clot could cause long-term paralysis, and may be more likely to occur if:?you have a spinal catheter in place or if a catheter has been recently removed; ?you have a history of spinal surgery or repeated spinal taps; ?you have recently had a spinal tap or epidural anesthesia; ?you take aspirin or other NSAIDs (nonsteroidal anti-inflammatory drugs)--ibuprofen (Advil, Motrin), naproxen (Aleve), diclofenac, indomethacin, meloxicam, and others; or ?you are using other medicines to treat or prevent blood clots. ?? Taking apixaban may increase the risk of bleeding while you are or during your delivery. Tell your doctor if you are or plan to become . ?? Do not breastfeed. ?? How should I take apixaban? Follow all directions on your prescription label and read all medication guides or instruction sheets. Your doctor may occasionally change your dose. Use the medicine exactly as directed. ?? You may take apixaban with or without food. ?? If you cannot swallow a tablet whole,??crush it and mix with water, apple juice, or applesauce. Swallow the mixture right away without chewing.? A crushed tablet mixture may also be given through a nasogastric (NG) feeding tube.??Read and carefully follow any Instructions for Use provided with your medicine. ?? Apixaban can make it easier for you to bleed, even from a minor injury. ??Seek medical attention ifyou have bleeding that will not stop. ? Tell your doctor if you have a planned surgery or dental work.??You may need to stop taking apixaban for a short time.? Do not stop taking apixaban unless your doctor tells you to.? If you stop taking apixaban for any reason, your doctor may prescribe another medicine to prevent blood clots. ?? Store at room temperature away from moisture and heat. ?? What happens if I miss a dose? Take the missed dose on the same day you remember it. Take your next dose at the regular time and stay on your twice-daily schedule. ??Do not??take two doses at one time.? Get your prescription refilled before you run out of medicine completely. ?? What happens if I overdose? Seek emergency medical attention or call the Poison Help line at . ?? What should I avoid while taking apixaban? Avoid activities that may increase your risk of bleeding or injury. ??Use extra care while shaving or brushing your teeth. ?? What are the possible side effects of apixaban? Get emergency medical help if you have??signs of an allergic reaction: ??hives; chest pain, wheezing, difficult breathing; feeling light-headed; swelling of your face, lips, tongue, or throat. ?? Also seek emergency medical attention if you have??symptoms of a spinal blood clot??such as tingling, numbness, or muscle weakness especially in your legs and feet. ?? Call your doctor at once if you have: ?easy bruising, unusual bleeding (nose, mouth, vagina, or rectum), bleeding from wounds or needle injections, any bleeding that will not stop; ?heavy menstrual bleeding; ?headache, dizziness, weakness, feeling like you might pass out; ?urine that looks red, pink, or brown; or ?black or bloody stools, coughing up blood or vomit that looks like coffee grounds. ?? This is not a complete list of side effects and others may occur. Call your doctor for medical advice about side effects. You may report side effects to FDA at 1-031-AOX-6918. ?? What other drugs will affect apixaban? Sometimes it is not safe to use certain medications at the same time.?Some drugs can affect yourblood levels of other drugs you take, which may increase side effects or make the medications less effective. ? Many other drugs (including some gbnn-gva-ywcllsu medicines) can increase your risk of bleeding or blood clots.??Tell your doctor about all medicines you have recently used,??especially: ?any other medicines to treat or prevent blood clots; ?a blood thinner such as heparin or warfarin (Coumadin, Jantoven); ?an antidepressant; or ?aspirin or other NSAID (nonsteroidal anti-inflammatory drug) used terminologist. ?? This list is not complete and many other drugs may affect apixaban.??This includes prescription vamlduo-azu-vagxuag medicines, vitamins, and herbal products. Not all possible drug interactions are listed here. ?? Where can I get more information? Your pharmacist can provide more information about apixaban. ?? Remember, keep this and all other medicines out of the reach of children, never share your medicines with others, and use this medication only for the indication prescribed. ?? Every effort has been made to ensure that the information provided by [employer] is accurate, up-to-date, and complete, but no guarantee is made to that effect. Drug information contained herein may be time sensitive. [employer] information has been compiled for use by healthcare practitioners and consumers in the [place] and therefore [employer] does not warrant that uses outside of the [place] are appropriate, unless specifically indicated otherwise. [employer] drug information does not endorse drugs, diagnose patients or recommend therapy. [employer] drug information isan informational resource designed to assist licensed healthcare practitioners in caring for their p atients and/or to serve consumers viewing this service as a supplement to, and not a substitute for, the expertise, skill, knowledge and judgment of healthcare practitioners. The absence of a warningfor a given drug or drug combination in no way should be construed to indicate that the drug or drug combination is safe, effective or appropriate for any given patient. [facility] does not assume any responsibility for any aspect of healthcare administered with the aid of information [facility] provides. The information contained herein is not intended to cover all possible uses, directions, precautions, warnings, drug interactions, allergic reactions, or adverse effects. If you have questions about the drugs you are taking, check with your doctor, nurse or pharmacist.? Copyright 6385-1945 [employer]. Version: 6.01. Revision Date: 07/03/2021. ?? tamsulosin?? (martinez erick EMMY sin) ?? Flomax? What is the most important information I should know about tamsulosin? Use only as directed. Tell your doctor if you use other medicines or have other medical conditions or allergies. ?? What is tamsulosin? Tamsulosin is used to treat symptoms of benign prostatic hyperplasia (enlarged prostate). ?? Tamsulosin is not approved for use in women or children. ?? Tamsulosin may also be used for purposes not listed in this medication guide. ?? What should I discuss with my healthcare provider before taking tamsulosin? You should not use tamsulosin if you are allergic to it. ? Tell your doctor if you have ever had: ?prostate cancer; ?low blood pressure;?an allergy to sulfa drugs; or ?liver or kidney disease. ?? Tamsulosin can affect your pupils. If you have cataract surgery, tell the surgeon you use this medicine.? Ask your doctor about prostate cancer screening before and while taking tamsulosin. ?? Tamsulosin is not approved for use in women.? How should I take tamsulosin? Follow all directions on your prescription label and read all medication guides or instruction sheets. Use the medicine exactly as directed. ?? Tamsulosin is usually taken once a day, within 30 minutes after the same meal each day. ?? Swallow the capsule whole and do not crush, chew, break, or open it. ?? Your blood pressure will need to be checked often. ? If you stop using this medicine, do not start it again without your doctor's advice. ?? Store tightly closed at room temperature, away from moisture and heat.? What happens if I miss a dose? Take the medicine as soon as you can, but skip the missed dose if it is almost time for your next dose.??Do not??take two doses at one time.? If you stop using this medicine for several days in a row, do not start it again without your doctor's advice. ?? What happens if I overdose? Seek emergency medical attention or call the Poison Help line at . ?? What should I avoid while taking tamsulosin? Avoid driving or hazardous activity until you know how this medicine will affect you. ??Your reactions could be impaired. ? Avoid getting up too fast from a sitting or lying position, or you may feel dizzy. ?? What are the possible side effects of tamsulosin? Get emergency medical help if you have??signs of an allergic reaction??(hives, difficult breathing,swelling in your face or throat)??or a severe skin reaction??(fever, sore throat, burning eyes, skin pain, red or purple skin rash with blistering and peeling). ?? Tamsulosin may lower your blood pressure and may cause dizziness or fainting, especially when you first start taking it or your dose changes.? Stop using tamsulosin and call your doctor at once if you have: ?a light-headed feeling, like you might pass out; or ?a painful erection that lasts 4 hours or longer. ?? Common side effects may include: ?abnormal ejaculation, decreased amount of semen; ?dizziness, drowsiness, weakness;?runny or stuffy nose, sore throat, cough; ?back pain, chest pain, headache; ?nausea, diarrhea; ?tooth problems; ?blurred vision; ?sleep problems (insomnia); or ?decreased interest in sex. ?? This is not a complete list of side effects and others may occur. Call your doctor for medical advice about side effects. You may report side effects to FDA at 3-909-BGC-6078. ?? What other drugs will affect tamsulosin? Sometimes it is not safe to use certain medicines at the same time.??Some drugs can affect your blood levels of other drugs you use, which may increase side effects or make the medicines less effective.? Tell your doctor about all your current medicines.??Many drugs can affect tamsulosin, especially: ?cimetidine; ?medicine to treat impotence or pulmonary arterial hypertension--avanafil (Stendra), sildenafil (Viagra, Revatio), tadalafil (Adcirca, Cialis), or vardenafil (Levitra, Staxyn); or ?drugs to treat high blood pressure or a prostate disorder--alfuzosin, doxazosin, prazosin, terazosin, silodosin. ?? This list is not complete and many other drugs may affect tamsulosin.??This includes prescription and wbmp-dnt-sfkvdji medicines, vitamins, and herbal products. Not all possible drug interactions arelisted here. ?? Where can I get more information? Your doctor or pharmacist can provide more information about tamsulosin. ?? Remember, keep this and all other medicines out of the reach of children, never share your medicines with others, and use this medication only for the indication prescribed. ?? Every effort has been made to ensure that the information provided by [employer]. [employer] is accurate, up-to-date, and complete, but no guarantee is made to that effect. Drug information contained herein may be time sensitive. [employer] information has been compiled for use by healthcare practitioners and consumers in the [place] and therefore [employer] does not warrant that uses outside of the [place] are appropriate, unless specifically indicated otherwise. [employer] drug information does not endorse drugs, diagnose patients or recommend therapy. [employer] drug information isan informational resource designed to assist licensed healthcare practitioners in caring for their p atients and/or to serve consumers viewing this service as a supplement to, and not a substitute for, the expertise, skill, knowledge and judgment of healthcare practitioners. The absence of a warningfor a given drug or drug combination in no way should be construed to indicate that the drug or drug combination is safe, effective or appropriate for any given patient. [employer] does not assume any responsibility for any aspect of healthcare administered with the aid of information [employer] provides. The information contained herein is not intended to cover all possible uses, directions, precautions, warnings, drug interactions, allergic reactions, or adverse effects. If you have questions about the drugs you are taking, check with your doctor, nurse or pharmacist.? Copyright Dorota [facility] Version: 09.10. Revision Date: 01/31/2023. ? Patient/Dampener Operator Signature Patient Name:ETTA BAH I have received this information and my questions have been answered. Patient/Dampener Operator Name: Patient/Dampener Operator Signature: Relationship to Patient: Witness Name/Signature: Date: Electronically Signed on: 11/26/2023 11:48 EST Signed by:IRENE Note * Namita Horn.: PERFORM Event Display: Speech/Audiology Therapy Note Authored Date: [id number] media production support manager Note * Kaia Narayanan.: PERFORM Event Display: Case Management Note Authored Date: [id number] This gag writer determined that the closest provider for Shadi to seek outpatient Physical, Occupational and Speech services through [facility] in [place], [place]. This gag writer printed information for Shadi, called the outpatient team to determine that they were accepting new referrals and sent the referral for all three services to them. They will be calling Shadi directly to set upappointments. This gag writer brought the printout's with basic information to Shadi in his room and he was pleased. He gave this gag writer the thumbs up and agreed that it was the closest to his home. The information was holed punched and placed in his blue binder for d/c. This gag writer verified that they received the referrals and explained via documentation how to reach Shadi here vs. at home. Explained toRod and will explain to Lesly that they will be calling him/ directly to set up his OP appointments. * Kaia Narayanan: PERFORM Event Display: Case Management Note Authored Date: [id number] Checked in with Shadi to be sure he was doing well and did not feel he needed anything from case management, Shadi reported feeling good and feeling happy with the progress he has made. Asked him if he had any questions and he denies any. Will work on Home Health referral tomorrow as to prepare for hisupcoming discharge next week. * Kaia Narayanan: PERFORM Event Display: Case Management Note Authored Date: [id number] This gag writer met with Shadi in his room, room 301. Shadi was [place] [facility] [place] for multiple strokes. Shadi lives with his , Lesly in a multi-level home in [place], [place]. There are five steps to enter and they can set up all needs on the first floor. Shadi has a PCP, Dr. Bobby Reilly. He uses [facility] in [place], [place]. Shadi is retired and receiving Social Security. He was driving and was managing things at home independently prior to these medical events. Shadi denies any [employer] or [place]. He has an Advanced Directive and it is in his chart. Shadi has no concerns on his stay here, he reports knowing he needs it. Shadi denies anything at this time to improve his stay. He does not currently have any substance use concerns. 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 Shadi looks forward to getting home and gaining back his ability to communicate. He and his deny any financial concerns or transportation concerns at hits time. Shadi denies a hx of Home health. Shadi's expresses concerns with being able to communicate with him as she is far away from [facility]. will be called for Team so that she can be present via speakerphone. Nurse Progress note * Preeti Knox RN: PERFORM, MODIFY Event Display: Progress Note-Nurse Authored Date: [id number] DISCHARGE PLANNED TODAY (11/26) AT 1300 Physical Assessment: A&Ox4, VSS, R sided weakness UE>LE. See interactive view for assessmentdetails. Skin: Intact. Psychosocial / Cognitive: A&Ox4, Cooperative, sometimes frustrated d/t expressive aphasia. Mobility: Independent in room. Pain: Denies pain. Safety: Pt compliant with calling when getting up to bathroom overnight, Needs to be reminded to slow down as pt stumbled when getting up too quickly this evening to use restroom. Medication needs / Diet: Pt able to take medications whole with thin liquids. Diabetic diet. Pt refused bowel medications and melatonin HS. See MAR for all medication administrations. Bowel / Bladder: Pt is continent of bladder/bowel. Independent in room. Working on...: Mobility, Speech/word finding, d/c 11/26/23 at 1300 [Electronically Signed on: 11/26/2023 05:46 EST] Preeti Knox RN [Verified on: 11/26/2023 05:46 EST] Preeti Knox RN * Daniela Adame: PERFORM Event Display: Progress Note-Nurse Authored Date: [id number] Physical Assessment: Pt has steady vital signs. No issues noted during the day, no cardiac related symptoms. Pt has benign assessment. Skin: Skin intact Psychosocial / Cognitive: Pt continues to struggle with his speech, but able to make his needs known. In contact with via phone. No issues alert, oriented, cooperative. Mobility: Pt is now independent in room. Some cueing needed for right side, contact guard in toilet. Pain: None reported Safety: pt uses call boo appropriately for assistance, proper footwear used in ambulation, call boo available at all times. Medication needs / Diet: none. Finger sticks now BID and insulin now discontinued, eating well. Bowel / Bladder: Pt is continent of bowel and bladder. LBM 11/23. Pt refuses bowel medication [Electronically Signed on: 11/25/2023 16:22 EST] Daniela Adame [Verified on: 11/25/2023 16:22 EST] Daniela Adame * Preeti Knox, RN: MODIFY, PERFORM Event Display: Progress Note-Nurse Authored Date: [id number] Physical Assessment: A&Ox4, VSS, R sided weakness UE>LE. See interactive view for assessmentdetails. Skin: Intact. Psychosocial / Cognitive: A&Ox4, Cooperative, sometimes frustrated d/t expressive aphasia. Mobility: CGA with gait belt (no device), motivated to be more independent. Needs to slow down, sometimes tries to get up too quickly. Pain: Denies pain. Safety: Pt compliant with calling when getting up to bathroom overnight, Needs to be reminded to slow down as pt stumbled when getting up too quickly this evening to use restroom. Medication needs / Diet: Pt able to take medications whole with thin liquids. Diabetic diet with Metformin and Lispro SS (Last SSI required was 11/21/23 HS 1 unit). Pt refused bowel medications and melatonin HS. See MAR for all medication administrations. Bowel / Bladder: Pt is continent of bladder/bowel. Calls for assistance to bathroom overnight. No BM overnight. Working on...: Mobility, Speech/word finding, independence. *Pt requested that Blood sugar checks and Lispro SS be discontinued now that his blood sugars have been good and he has not needed any SSI for a few days. RN left note for Dr. Zaman. [Electronically Signed on: 11/25/2023 05:57 EST] Preeti Knox RN [Verified on: 11/25/2023 05:57 EST] Preeti Knox RN Hospital Summary note * Namita Horn: VERIFY, PERFORM, SIGN Event Display: Inpatient Patient Summary Authored Date: [id number] [address] Patient Information Name: ETTA BAH Age: 83 Years Date of : 1940 Arrival Date/Time: 11/12/2023 12:06:18 Discharge Date/Time: Reason For Visit: multifocal strokes s/p tPA Allergies: Protonix; aspirin Diagnosis: Acute ischemic left BRUCE stroke Comment: Provider Information: Admitting Physician: Flavia Zaman MD Attending Physician:Flavia Zaman MD Primary Care Provider:Bobby Das [facility] would like to thank you for allowing us to assist you with your healthcare needs. The following includes patient education materials and information regarding your injury/illness. Our entire staff strives to provide a very good experience for our patients andtheir families. You may receive, by mail, a survey about your experience with us. PLEASE ENSURE YOUFOLLOW-UP PER THE INSTRUCTIONS BELOW! Medication Information: It is important to always keep an active list of medications available so that you can share with other providers and manage your medications appropriately. As an additional courtesy, we are also providing you with your final active medications list that you can keep with you. acetaminophen (acetaminophen 325 mg oral tablet) 2 tab(s) Oral every 4 hours as needed Pain. apixaban (apixaban 2.5 mg oral tablet) 1 tab(s) Oral 2 times a day (scheduled). atorvastatin (Atorvastatin 80mg tablet) 1 tab(s) Oral every day. Refills: 0. docusate (Colace 100 mg oral capsule) 1 cap Oral 2 times a day (scheduled) as needed Constipation. fluticasone nasal (fluticasone 50 mcg/inh nasal spray) 1 spray(s) Nasal every day. melatonin (melatonin 3 mg oral tablet) 1 tab(s) Oral Bedtime as needed Insomnia. metFORMIN (metFORMIN 1000 mg oral tablet, extended release) 1 tab(s) Oral 2 times a day (scheduled). Refills: 0. metoprolol (metoprolol tartrate 25 mg oral tablet) 0.5 tab(s) Oral 2 times a day (scheduled). Refills: 0. multivitamin 1 tab(s) Oral every day. ocular lubricant (Refresh Plus ophthalmic solution) 1 Drops Ophthalmic (the eye) 3 times a day (scheduled) as needed for dry eyes. senna (senna 8.6 mg oral tablet) 2 tab(s) Oral Bedtime as needed Constipation. tamsulosin (Flomax 0.4 mg oral capsule) 1 cap Oral every day. Take only the medications listed above. Contact your doctor prior to taking any medications not on this list. ETTA BAH has been given the following list of follow-up instructions, patient education materials, and medication leaflets: Follow-up Instructions: With: Address: When: Bobby Das [address] [place] [id number] 12/03/2023 12:40 PM Comments: Please arrive 15 minutes prior to your appointment time for a follow up with your primary care provider With: Address: When: [place] [address] [facility] (1) 12/29/2023 8:00 AM Comments: Please arrive 15 minutes prior to your appointment time at [facility] for a follow up with neurology Patient Education Materials: Stroke Prevention Patient Activity Level: Patient Activity Restrictions: Patient Diet: Comment: Stroke Prevention Some medical conditions and behaviors can lead to a higher chance of having a stroke. You can help prevent a stroke by eating healthy, exercising, not smoking, and managing any medical conditions youhave. Stroke is a leading cause of functional impairment. Primary prevention is particularly important because a majority of strokes are first-time events. Stroke changes the lives of not only those who experience a stroke but also their family and other caregivers. How can this condition affect me? A stroke is a medical emergency and should be treated right away. A stroke can lead to brain damageand can sometimes be life-threatening. If a person gets medical treatment right away, there is a better chance of surviving and recovering from a stroke. What can increase my risk? The following medical conditions may increase your risk of a stroke: ??? Cardiovascular disease. ??? High blood pressure (hypertension). ??? Diabetes. ??? High cholesterol. ??? Sickle cell disease. ??? Blood clotting disorders (hypercoagulable state). ??? Obesity. ??? Sleep disorders (obstructive sleep apnea). Other risk factors include: ??? Being older than age 60. ??? Having a history of blood clots, stroke, or mini-stroke (transient ischemic attack, TIA). ??? Genetic factors, such as race, ethnicity, or a family history of stroke. ??? Smoking cigarettes or using other tobacco products. ??? Taking control pills, especially if you also use tobacco. ??? Heavy use of alcohol or drugs, especially cocaine and methamphetamine. ??? Physical inactivity. What actions can I take to prevent this? Manage your health conditions ??? High cholesterol levels. ??? Eating a healthy diet is important for preventing high cholesterol. If cholesterol cannot be managed through diet alone, you may need to take medicines. ??? Take any prescribed medicines to control your cholesterol as told by your health care provider. ??? Hypertension. ??? To reduce your risk of stroke, try to keep your blood pressure below 130/80. ??? Eating a healthy diet and exercising regularly are important for controlling blood pressure. Ifthese steps are not enough to manage your blood pressure, you may need to take medicines. ??? Take any prescribed medicines to control hypertension as told by your health care provider. ??? Ask your health care provider if you should monitor your blood pressure at home. ??? Have your blood pressure checked every year, even if your blood pressure is normal. Blood pressure increases with age and some medical conditions. ??? Diabetes. ??? Eating a healthy diet and exercising regularly are important parts of managing your blood sugar(glucose). If your blood sugar cannot be managed through diet and exercise, you may need to take medicines. ??? Take any prescribed medicines to control your diabetes as told by your health care provider. ??? Get evaluated for obstructive sleep apnea. Talk to your health care provider about getting a sleep evaluation if you snore a lot or have excessive sleepiness. ??? Make sure that any other medical conditions you have, such as atrial fibrillation or atherosclerosis, are managed. Nutrition Follow instructions from your health care provider about what to eat or drink to help manage your health condition. These instructions may include: ??? Reducing your daily calorie intake. ??? Limiting how much salt (sodium) you use to 1,500 milligrams (mg) each day. ??? Using only healthy fats for cooking, such as olive oil, canola oil, or sunflower oil. ??? Eating healthy foods. You can do this by: ??? Choosing foods that are high in fiber, such as whole grains, and fresh fruits and vegetables. ??? Eating at least 5 servings of fruits and vegetables a day. Try to fill one- half of your plate with fruits and vegetables at each meal. ??? Choosing lean protein foods, such as lean cuts of meat, poultry without skin, fish, tofu, beans, and nuts. ??? Eating low-fat dairy products. ??? Avoiding foods that are high in sodium. This can help lower blood pressure. ??? Avoiding foods that have saturated fat, trans fat, and cholesterol. This can help prevent high cholesterol. ??? Avoiding processed and prepared foods. ??? Counting your daily carbohydrate intake. Lifestyle ??? If you drink alcohol: ??? Limit how much you have to: ??? 0???1 drink a day for women who are not . ??? 0???2 drinks a day for men. ??? Know how much alcohol is in your drink. In the [place] one drink equals one 12 oz bottle of beer (355mL), one 5 oz glass of wine (148mL), or one 1?? oz glass of hard liquor (44mL). ??? Do not use any products that contain nicotine or tobacco. These products include cigarettes, chewing tobacco, and vaping devices, such as e-cigarettes. If you need help quitting, ask your health care provider. ??? Avoid secondhand smoke. ??? Do not use drugs. Activity ??? Try to stay at a healthy weight. ??? Get at least 30 minutes of exercise on most days, such as: ??? Fast walking. ??? Biking. ??? Swimming. Medicines ??? Take lzgt-law-rkufkus and prescription medicines only as told by your health care provider. Aspirin or blood thinners (antiplatelets or anticoagulants) may be recommended to reduce your risk of forming blood clots that can lead to stroke. ??? Avoid taking control pills. Talk to your health care provider about the risks of taking control pills if: ??? You are over 35 years old. ??? You smoke. ??? You get very bad headaches. ??? You have had a blood clot. Where to find more information ??? [place] [employer]: www.strokeassociation.org Get help right away if: ??? You or a loved one has any symptoms of a stroke. BE FAST is an easy way to remember the main warning signs of a stroke: ??? B - Balance. Signs are dizziness, sudden trouble walking, or loss of balance. ??? E - Eyes. Signs are trouble seeing or a sudden change in vision. ??? F - Face. Signs are sudden weakness or numbness of the face, or the face or eyelid drooping on one side. ??? A - Arms. Signs are weakness or numbness in an arm. This happens suddenly and usually on one side of the body. ??? S - Speech. Signs are sudden trouble speaking, slurred speech, or trouble understanding what people say. ??? T - Time. Time to call emergency services. Write down what time symptoms started. ??? You or a loved one has other signs of a stroke, such as: ??? A sudden, severe headache with no known cause. ??? Nausea or vomiting. ??? Seizure. These symptoms may represent a serious problem that is an emergency. Do not wait to see if the symptoms will go away. Get medical help right away. Call your local emergency services (911 in the [place] Do not drive yourself to the hospital. Summary ??? You can help to prevent a stroke by eating healthy, exercising, not smoking, limiting alcohol intake, and managing any medical conditions you may have. ??? Do not use any products that contain nicotine or tobacco. These include cigarettes, chewing tobacco, and vaping devices, such as e-cigarettes. If you need help quitting, ask your health care provider. ??? Remember BE FAST for warning signs of a stroke. Get help right away if you or a loved one hasany of these signs. This information is not intended to replace advice given to you by your health care provider. Make sure you discuss any questions you have with your health care provider. Document Revised: 05/28/2021 Document Reviewed: 05/28/2021 [employer] Patient Education ?? 2022 [employer]. Medication Information Materials: metformin (met FOR min) Glumetza, MetFORMIN (Eqv-Fortamet), MetFORMIN (Eqv-Glucophage XR), MetFORMIN (Eqv-Glumetza), Riomet What is the most important information I should know about metformin? You should not use this medicine if you have severe kidney disease, metabolic acidosis, or diabeticketoacidosis (call your doctor for treatment). If you need to have any type of x-ray or CT scan using a dye that is injected into your veins, you may need to temporarily stop taking metformin. You may develop lactic acidosis, a dangerous build-up of lactic acid in your blood. Call your doctor or get emergency medical help if you have unusual muscle pain, trouble breathing, stomach pain, dizziness, feeling cold, or feeling very weak or tired. What is metformin? Metformin is used together with diet and exercise to improve blood sugar control in adults with type 2 diabetes mellitus. Metformin is sometimes used together with insulin or other medications, but metformin is not for treating type 1 diabetes. Metformin may also be used for purposes not listed in this medication guide. What should I discuss with my healthcare provider before taking metformin? You should not use metformin if you are allergic to it, or if you have: ? severe kidney disease; or ??? metabolic acidosis or diabetic ketoacidosis (call your doctor for treatment). If you need to have surgery or any type of x-ray or CT scan using a dye that is injected into your veins, you may need to temporarily stop taking metformin. Be sure your caregivers know ahead of timethat you are using this medication. Tell your doctor if you have ever had: ? kidney disease (your kidney function may need to be checked before you take this medicine); ??? high ketone levels in your blood or urine; ??? heart disease, congestive heart failure; ??? liver disease; or ??? if you also use insulin, or other oral diabetes medications. You may develop lactic acidosis, a dangerous build-up of lactic acid in your blood. This may be more likely if you have other medical conditions, a severe infection, chronic alcoholism, or if you are65 or older. Ask your doctor about your risk. Follow your doctor's instructions about using this medicine if you are or you become . Controlling diabetes is very important during , and having high blood sugar may cause complications in both the mother and the baby. Metformin may stimulate ovulation in a premenopausal woman and may increase the risk of unintended . Talk to your doctor about your risk. You should not breastfeed while using this medicine. Metformin should not be given to a child younger than 10 years old. Some forms of metformin are notapproved for use by anyone younger than 18 years old. How should I take metformin? Follow all directions on your prescription label and read all medication guides or instruction sheets. Your doctor may occasionally change your dose. Use the medicine exactly as directed. Take metformin with a meal, unless your doctor tells you otherwise. Some forms of metformin are taken only once daily with the evening meal. Follow your doctor's instructions. Do not crush, chew, or break an extended-release tablet. Swallow it whole. Measure liquid medicine carefully. Use the dosing syringe provided, or use a medicine dose-measuring device (not a kitchen spoon). Shake the oral suspension (liquid) before you measure a dose. Use the dosing syringe provided, or use a medicine dose-measuring device (not a kitchen spoon). Some tablets are made with a shell that is not absorbed or melted in the body. Part of this shell may appear in your stool. This is normal and will not make the medicine less effective. You may have low blood sugar (hypoglycemia) and feel very hungry, dizzy, irritable, confused, anxious, or shaky. To quickly treat hypoglycemia, eat or drink a fast-acting source of sugar (fruit juice, hard candy, crackers, raisins, or non-diet soda). Your doctor may prescribe a glucagon injection kit in case you have severe hypoglycemia. Be sure your family or close friends know how to give you this injection in an emergency. Blood sugar levels can be affected by stress, illness, surgery, exercise, alcohol use, or skipping meals. Ask your doctor before changing your dose or medication schedule. Metformin is only part of a complete treatment program that may also include diet, exercise, weightcontrol, blood sugar testing, and special medical care. Follow your doctor's instructions very closely. Store at room temperature away from moisture, heat, and light. Your doctor may have you take extra vitamin B12 while you are taking metformin. Take only the amount of vitamin B12 that your doctor has prescribed. What happens if I miss a dose? Take the medicine as soon as you can, but skip the missed dose if it is almost time for your next dose. Do not take two doses at one time. What happens if I overdose? Seek emergency medical attention or call the Poison Help line at . An overdose can cause severe hypoglycemia or lactic acidosis. What should I avoid while taking metformin? Avoid drinking alcohol. It lowers blood sugar and may increase your risk of lactic acidosis. What are the possible side effects of metformin? Get emergency medical help if you have signs of an allergic reaction: hives; difficult breathing; swelling of your face, lips, tongue, or throat. Some people using metformin develop lactic acidosis, which can be fatal. Get emergency medical helpif you have even mild symptoms such as: ? unusual muscle pain; ??? feeling cold; ??? trouble breathing; ??? feeling dizzy, light-headed, tired, or very weak; ??? stomach pain, vomiting; or ??? slow or irregular heart rate. Common side effects may include: ? low blood sugar; ??? nausea, upset stomach; or ??? diarrhea. This is not a complete list of side effects and others may occur. Call your doctor for medical advice about side effects. You may report side effects to FDA at 1-851-CUZ-7730. What other drugs will affect metformin? Many drugs can affect metformin, making this medicine less effective or increasing your risk of lactic acidosis. This includes prescription and vkfg-gcf-ojylyyp medicines, vitamins, and herbal products. Not all possible interactions are listed here. Tell your doctor about all your current medicines and any medicine you start or stop using. Where can I get more information? Your pharmacist can provide more information about metformin. Remember, keep this and all other medicines out of the reach of children, never share your medicines with others, and use this medication only for the indication prescribed. Every effort has been made to ensure that the information provided by [employer]. [employer]') is accurate, up-to-date, and complete, but no guarantee is made to that effect. Drug information contained herein may be time sensitive. [employer] information has been compiled for use by healthcare practitioners and consumers in the [place] and therefore [employer] does not warrant that uses outside of the [place] are appropriate, unless specifically indicated otherwise. [employer] drug information does not endorse drugs, diagnose patients or recommend therapy. [employer] drug information isan informational resource designed to assist licensed healthcare practitioners in caring for their p atients and/or to serve consumers viewing this service as a supplement to, and not a substitute for, the expertise, skill, knowledge and judgment of healthcare practitioners. The absence of a warningfor a given drug or drug combination in no way should be construed to indicate that the drug or drug combination is safe, effective or appropriate for any given patient. [employer] does not assume any responsibility for any aspect of healthcare administered with the aid of information [employer] provides. The information contained herein is not intended to cover all possible uses, directions, precautions, warnings, drug interactions, allergic reactions, or adverse effects. If you have questions about the drugs you are taking, check with your doctor, nurse or pharmacist. Copyright 7212-2114 [employer]. Version: 19.. Revision Date: 06/06/2023. metoprolol (oral/injection) (me TOE pro lol) Kapspargo Sprinkle, Lopressor, Metoprolol Succinate ER, Metoprolol Tartrate, Toprol-XL What is the most important information I should know about metoprolol? You should not use this medicine if you have a serious heart problem (heart block, sick sinus syndrome, slow heart rate), severe circulation problems, severe heart failure, or a history of slow heartbeats that caused fainting. What is metoprolol? Metoprolol is a beta-norma that affects the heart and circulation (blood flow through arteries and veins). Metoprolol is used to treat angina (chest pain) and hypertension (high blood pressure). It is also used to lower your risk of or needing to be hospitalized for heart failure. Metoprolol injection is used during the early phase of a heart attack to lower the risk of . Metoprolol may also be used for other purposes not listed in this medication guide. What should I discuss with my healthcare provider before taking metoprolol? You should not use this medicine if you are allergic to metoprolol, or other beta-blockers (atenolol, carvedilol, labetalol, nadolol, nebivolol, propranolol, sotalol, and others), or if you have: ? a serious heart problem such as heart block, sick sinus syndrome, or slow heart rate; ??? severe circulation problems; ??? severe heart failure (that required you to be in the hospital); or ??? a history of slow heart beats that have caused you to faint. Tell your doctor if you have ever had: ? asthma, chronic obstructive pulmonary disease (COPD), sleep apnea, or other breathing disorder; ??? diabetes (taking metoprolol may make it harder for you to tell when you have low blood sugar); ??? liver disease; ??? congestive heart failure; ??? problems with circulation (such as Raynaud's syndrome); ??? a thyroid disorder; or ??? pheochromocytoma (tumor of the adrenal gland). Do not give this medicine to a child without medical advice. Tell your doctor if you are or plan to become . It is not known whether metoprololwill harm an unborn baby. However, having high blood pressure during may cause complications such as diabetes or eclampsia (dangerously high blood pressure that can lead to medical problemsin both mother and baby). The benefit of treating hypertension may outweigh any risks to the baby. Ask a doctor before using this medicine if you are breast-feeding. Metoprolol can pass into breast milk and may cause dry skin, dry mouth, diarrhea, constipation, or slow heartbeats in your baby. How should I take metoprolol? Follow all directions on your prescription label and read all medication guides or instruction sheets. Your doctor may occasionally change your dose. Use the medicine exactly as directed. Metoprolol should be taken with a meal or just after a meal. Take the medicine at the same time each day. Swallow the capsule whole and do not crush, chew, break, or open it. A Toprol XL tablet can be divided in half if your doctor has told you to do so. Swallow the half-tablet whole, without chewing or crushing. Measure liquid medicine carefully. Use the dosing syringe provided, or use a medicine dose-measuring device (not a kitchen spoon). You will need frequent medical tests, and your blood pressure will need to be checked often. If you need surgery, tell the surgeon ahead of time that you are using metoprolol. You should not stop using metoprolol suddenly. Stopping suddenly may make your condition worse. If you have high blood pressure, keep using this medicine even if you feel well. High blood pressure often has no symptoms. You may need to use metoprolol for the rest of your life. Store at room temperature away from moisture and heat. Metoprolol injection is given as an infusion into a vein. A healthcare provider will give you this injection in a medical setting where your heart and blood pressure can be monitored. Metoprolol injections are given for only a short time before switching you to the oral form of this medicine. What happens if I miss a dose? Skip the missed dose and use your next dose at the regular time. Do not use two doses at one time. What happens if I overdose? Seek emergency medical attention or call the Poison Help line at . What should I avoid while taking metoprolol? Avoid driving or hazardous activity until you know how this medicine will affect you. Your reactions could be impaired. Drinking alcohol can increase certain side effects of metoprolol. What are the possible side effects of metoprolol? Get emergency medical help if you have signs of an allergic reaction: hives; difficulty breathing; swelling of your face, lips, tongue, or throat. Call your doctor at once if you have: ? very slow heartbeats; ??? a light-headed feeling, like you might pass out; ??? shortness of breath (even with mild exertion), swelling, rapid weight gain; or ??? cold feeling in your hands and feet. Common side effects may include: ? dizziness, tired feeling; ??? depression, confusion, memory problems; ??? nightmares, trouble sleeping; ??? diarrhea; or ??? mild itching or rash. This is not a complete list of side effects and others may occur. Call your doctor for medical advice about side effects. You may report side effects to FDA at 6-020-GGE-7114. What other drugs will affect metoprolol? Tell your doctor about all your current medicines. Many drugs can affect metoprolol, especially: ? any other heart or blood pressure medications; ??? epinephrine (Epi-Pen); ??? an antidepressant; ??? an ergot medicine--dihydroergotamine, ergonovine, ergotamine, methylergonovine; or ??? an MAO inhibitor--isocarboxazid, linezolid, phenelzine, rasagiline, selegiline, tranylcypromine. This list is not complete and many other drugs may affect metoprolol. This includes prescription and qwnk-piy-mqntoas medicines, vitamins, and herbal products. Not all possible drug interactions are listed here. Where can I get more information? Your pharmacist can provide more information about metoprolol. Remember, keep this and all other medicines out of the reach of children, never share your medicines with others, and use this medication only for the indication prescribed. Every effort has been made to ensure that the information provided by [employer]. [employer]') is accurate, up-to-date, and complete, but no guarantee is made to that effect. Drug information contained herein may be time sensitive. [employer] information has been compiled for use by healthcare practitioners and consumers in the [place] and therefore [employer] does not warrant that uses outside of the [place] are appropriate, unless specifically indicated otherwise. [employer] drug information does not endorse drugs, diagnose patients or recommend therapy. [employer] drug information isan informational resource designed to assist licensed healthcare practitioners in caring for their p atients and/or to serve consumers viewing this service as a supplement to, and not a substitute for, the expertise, skill, knowledge and judgment of healthcare practitioners. The absence of a warningfor a given drug or drug combination in no way should be construed to indicate that the drug or drug combination is safe, effective or appropriate for any given patient. [facility] does not assume any responsibility for any aspect of healthcare administered with the aid of information [facility] provides. The information contained herein is not intended to cover all possible uses, directions, precautions, warnings, drug interactions, allergic reactions, or adverse effects. If you have questions about the drugs you are taking, check with your doctor, nurse or pharmacist. Copyright 1079-5307 [facility]. Version: 19.. Revision Date: 06/18/2023. apixaban (a PIX a ban) Vanessa What is the most important information I should know about apixaban? Apixaban increases your risk of severe or fatal bleeding, especially if you take certain medicines at the same time (including some uugl-chz-cglnmoy medicines). Tell your doctor about all medicines you have recently used. Call your doctor at once if you have signs of bleeding such as: easy bruising, unusual bleeding, unexpected pain or swelling, feeling very weak or dizzy, bleeding gums, nosebleeds, heavy menstrual bleeding, blood in your urine or stools, coughing up blood or vomit that looks like coffee grounds, orany bleeding that will not stop. Apixaban can cause a very serious blood clot around your spinal cord that can lead to long-term or permanent paralysis. This type of blood clot can occur during a spinal tap or spinal anesthesia (epidural), especially if you have a genetic spinal defect, if you use a spinal catheter, if you've had spinal surgery or repeated spinal taps, or if you use other drugs that can affect blood clotting. Get emergency medical help if you have symptoms of a spinal cord blood clot such as tingling, numbness, or muscle weakness especially in your legs and feet. Do not stop taking apixaban unless your doctor tells you to. Stopping suddenly can increase your risk of blood clot or stroke. What is apixaban? Apixaban is used to lower the risk of stroke caused by a blood clot in people with a heart rhythm disorder called atrial fibrillation. Apixaban is also used after hip or knee replacement surgery to prevent a type of blood clot called deep vein thrombosis (DVT), which can lead to blood clots in the lungs (pulmonary embolism). Apixaban is also used to treat DVT or pulmonary embolism (PE), and to lower your risk of having a repeat DVT or PE. Apixaban may also be used for purposes not listed in this medication guide. What should I discuss with my healthcare provider before taking apixaban? You should not take apixaban if you are allergic to it, or if you have active bleeding from a surgery, injury, or other cause. Apixaban may cause you to bleed more easily, especially if you have a bleeding disorder that is inherited or caused by disease. Tell your doctor if you have an artificial heart valve, or if you have ever had: ? bleeding problems; ??? antiphospholipid syndrome, especially if you have a triple positive antibody test; or ??? liver or kidney disease. Apixaban can cause a very serious blood clot around your spinal cord if you undergo a spinal tap orreceive spinal anesthesia (epidural). This type of blood clot could cause long-term paralysis, and may be more likely to occur if: ? you have a spinal catheter in place or if a catheter has been recently removed; ??? you have a history of spinal surgery or repeated spinal taps; ??? you have recently had a spinal tap or epidural anesthesia; ??? you take aspirin or other NSAIDs (nonsteroidal anti-inflammatory drugs)--ibuprofen (Advil, Motrin), naproxen (Aleve), diclofenac, indomethacin, meloxicam, and others; or ??? you are using other medicines to treat or prevent blood clots. Taking apixaban may increase the risk of bleeding while you are or during your delivery. Tell your doctor if you are or plan to become . Do not breastfeed. How should I take apixaban? Follow all directions on your prescription label and read all medication guides or instruction sheets. Your doctor may occasionally change your dose. Use the medicine exactly as directed. You may take apixaban with or without food. If you cannot swallow a tablet whole, crush it and mix with water, apple juice, or applesauce. Swallow the mixture right away without chewing. A crushed tablet mixture may also be given through a nasogastric (NG) feeding tube. Read and carefully follow any Instructions for Use provided with your medicine. Apixaban can make it easier for you to bleed, even from a minor injury. Seek medical attention if you have bleeding that will not stop. Tell your doctor if you have a planned surgery or dental work. You may need to stop taking apixabanfor a short time. Do not stop taking apixaban unless your doctor tells you to. If you stop taking apixaban for any reason, your doctor may prescribe another medicine to prevent blood clots. Store at room temperature away from moisture and heat. What happens if I miss a dose? Take the missed dose on the same day you remember it. Take your next dose at the regular time and stay on your twice-daily schedule. Do not take two doses at one time. Get your prescription refilled before you run out of medicine completely. What happens if I overdose? Seek emergency medical attention or call the Poison Help line at . What should I avoid while taking apixaban? Avoid activities that may increase your risk of bleeding or injury. Use extra care while shaving orbrushing your teeth. What are the possible side effects of apixaban? Get emergency medical help if you have signs of an allergic reaction: hives; chest pain, wheezing, difficult breathing; feeling light-headed; swelling of your face, lips, tongue, or throat. Also seek emergency medical attention if you have symptoms of a spinal blood clot such as tingling,numbness, or muscle weakness especially in your legs and feet. Call your doctor at once if you have: ? easy bruising, unusual bleeding (nose, mouth, vagina, or rectum), bleeding from wounds or needle injections, any bleeding that will not stop; ??? heavy menstrual bleeding; ??? headache, dizziness, weakness, feeling like you might pass out; ??? urine that looks red, pink, or brown; or ??? black or bloody stools, coughing up blood or vomit that looks like coffee grounds. This is not a complete list of side effects and others may occur. Call your doctor for medical advice about side effects. You may report side effects to FDA at 8-153-OUU-4327. What other drugs will affect apixaban? Sometimes it is not safe to use certain medications at the same time. Some drugs can affect your blood levels of other drugs you take, which may increase side effects or make the medications less effective. Many other drugs (including some sxvp-vkr-itjscne medicines) can increase your risk of bleeding or blood clots. Tell your doctor about all medicines you have recently used, especially: ? any other medicines to treat or prevent blood clots; ??? a blood thinner such as heparin or warfarin (Coumadin, Jantoven); ??? an antidepressant; or ??? aspirin or other NSAID (nonsteroidal anti-inflammatory drug) used terminologist. This list is not complete and many other drugs may affect apixaban. This includes prescription and synk-vbo-sadvyol medicines, vitamins, and herbal products. Not all possible drug interactions are listed here. Where can I get more information? Your pharmacist can provide more information about apixaban. Remember, keep this and all other medicines out of the reach of children, never share your medicines with others, and use this medication only for the indication prescribed. Every effort has been made to ensure that the information provided by [employer] is accurate, up-to-date, and complete, but no guarantee is made to that effect. Drug information contained herein may be time sensitive. [employer] information has been compiled for use by healthcare practitioners and consumers in the [place] and therefore [employer] does not warrant that uses outside of the [place] are appropriate, unless specifically indicated otherwise. [employer] drug information does not endorse drugs, diagnose patients or recommend therapy. [employer] drug information isan informational resource designed to assist licensed healthcare practitioners in caring for their p atients and/or to serve consumers viewing this service as a supplement to, and not a substitute for, the expertise, skill, knowledge and judgment of healthcare practitioners. The absence of a warningfor a given drug or drug combination in no way should be construed to indicate that the drug or drug combination is safe, effective or appropriate for any given patient. [employer] does not assume any responsibility for any aspect of healthcare administered with the aid of information [employer] provides. The information contained herein is not intended to cover all possible uses, directions, precautions, warnings, drug interactions, allergic reactions, or adverse effects. If you have questions about the drugs you are taking, check with your doctor, nurse or pharmacist. Copyright 6337-9067 [employer]. Version: 6.01. Revision Date: 07/03/2021. tamsulosin (martinez erick EMMY sin) Flomax What is the most important information I should know about tamsulosin? Use only as directed. Tell your doctor if you use other medicines or have other medical conditions or allergies. What is tamsulosin? Tamsulosin is used to treat symptoms of benign prostatic hyperplasia (enlarged prostate). Tamsulosin is not approved for use in women or children. Tamsulosin may also be used for purposes not listed in this medication guide. What should I discuss with my healthcare provider before taking tamsulosin? You should not use tamsulosin if you are allergic to it. Tell your doctor if you have ever had: ? prostate cancer; ??? low blood pressure; ??? an allergy to sulfa drugs; or ??? liver or kidney disease. Tamsulosin can affect your pupils. If you have cataract surgery, tell the surgeon you use this medicine. Ask your doctor about prostate cancer screening before and while taking tamsulosin. Tamsulosin is not approved for use in women. How should I take tamsulosin? Follow all directions on your prescription label and read all medication guides or instruction sheets. Use the medicine exactly as directed. Tamsulosin is usually taken once a day, within 30 minutes after the same meal each day. Swallow the capsule whole and do not crush, chew, break, or open it. Your blood pressure will need to be checked often. If you stop using this medicine, do not start it again without your doctor's advice. Store tightly closed at room temperature, away from moisture and heat. What happens if I miss a dose? Take the medicine as soon as you can, but skip the missed dose if it is almost time for your next dose. Do not take two doses at one time. If you stop using this medicine for several days in a row, do not start it again without your doctor's advice. What happens if I overdose? Seek emergency medical attention or call the Poison Help line at . What should I avoid while taking tamsulosin? Avoid driving or hazardous activity until you know how this medicine will affect you. Your reactions could be impaired. Avoid getting up too fast from a sitting or lying position, or you may feel dizzy. What are the possible side effects of tamsulosin? Get emergency medical help if you have signs of an allergic reaction (hives, difficult breathing, swelling in your face or throat) or a severe skin reaction (fever, sore throat, burning eyes, skin pain, red or purple skin rash with blistering and peeling). Tamsulosin may lower your blood pressure and may cause dizziness or fainting, especially when you first start taking it or your dose changes. Stop using tamsulosin and call your doctor at once if you have: ? a light-headed feeling, like you might pass out; or ??? a painful erection that lasts 4 hours or longer. Common side effects may include: ? abnormal ejaculation, decreased amount of semen; ??? dizziness, drowsiness, weakness; ??? runny or stuffy nose, sore throat, cough; ??? back pain, chest pain, headache; ??? nausea, diarrhea; ??? tooth problems; ??? blurred vision; ??? sleep problems (insomnia); or ??? decreased interest in sex. This is not a complete list of side effects and others may occur. Call your doctor for medical advice about side effects. You may report side effects to FDA at 3-934-OLP-9826. What other drugs will affect tamsulosin? Sometimes it is not safe to use certain medicines at the same time. Some drugs can affect your blood levels of other drugs you use, which may increase side effects or make the medicines less effective. Tell your doctor about all your current medicines. Many drugs can affect tamsulosin, especially: ? cimetidine; ??? medicine to treat impotence or pulmonary arterial hypertension--avanafil (Stendra), sildenafil (Viagra, Revatio), tadalafil (Adcirca, Cialis), or vardenafil (Levitra, Staxyn); or ??? drugs to treat high blood pressure or a prostate disorder--alfuzosin, doxazosin, prazosin, terazosin, silodosin. This list is not complete and many other drugs may affect tamsulosin. This includes prescription and mqve-zyn-akgizrn medicines, vitamins, and herbal products. Not all possible drug interactions are listed here. Where can I get more information? Your doctor or pharmacist can provide more information about tamsulosin. Remember, keep this and all other medicines out of the reach of children, never share your medicines with others, and use this medication only for the indication prescribed. Every effort has been made to ensure that the information provided by [employer] is accurate, up-to-date, and complete, but no guarantee is made to that effect. Drug information contained herein may be time sensitive. [employer] information has been compiled for use by healthcare practitioners and consumers in the [place] and therefore [employer] does not warrant that uses outside of the [place] are appropriate, unless specifically indicated otherwise. [employer] drug information does not endorse drugs, diagnose patients or recommend therapy. [employer] drug information isan informational resource designed to assist licensed healthcare practitioners in caring for their p atients and/or to serve consumers viewing this service as a supplement to, and not a substitute for, the expertise, skill, knowledge and judgment of healthcare practitioners. The absence of a warningfor a given drug or drug combination in no way should be construed to indicate that the drug or drug combination is safe, effective or appropriate for any given patient. [employer] does not assume any responsibility for any aspect of healthcare administered with the aid of information [employer] provides. The information contained herein is not intended to cover all possible uses, directions, precautions, warnings, drug interactions, allergic reactions, or adverse effects. If you have questions about the drugs you are taking, check with your doctor, nurse or pharmacist. Copyright 2294-6570 [employer]. Version: .. Revision Date: 01/31/2023. To assist you in sharing the care we have provided to you with another provider or health care organization, we have created a 'Transition of Care Summary' inclusive of referral comments, medications, clinical results, follow up appointments etc. You may find and print a copy of your 'Transition ofCare Summary' on your Patient Portal. Your [facility] Patient Portal is located at [email or web address] If you have not yet signed up for a [facility] Patient Portal account you may request access by going to the [facility]'s website at [email or web address] and clicking on the blue oval on the left hand side of the page that says 'Sign Up for [facility] Patient Portal'. Your 'Summary of Care' will be waiting for you once your Portal account is created. I ETTA BAH , have received the following patient education materials/instructions and have verbalized understanding: Date: 11/26/2023 12:54:06 Patient Signature History and physical note * Flavia Zaman MD: PERFORM, MODIFY, MODIFY Event Display: History and Physical Authored Date: Patient: ETTA BAH Age: 83 years Sex: Male : 1940 Associated Diagnoses: None Author: Flavia Zaman MD Basic Information Visit type: New patient evaluation. Source of history: Self, records. Chief Complaint stroke History of Present Illness Mr Bah is a 83 yo man with h/o afib on AC which was being held for watchman procedure, GIB, DM2, HLD, CAD s/p stent 2021, CHFrEF, basal cell CA, MVP s/p repair, PAD, [place] [facility] [place] was being [place] in preparation for upcoming watchman procedure, when he had acute right sided weakness. CT head negative for bleed, and CTA showed left distal BRUCE occlusion. Also had aphasia anddysarthria. NIHSS was 5. He received TPA. Telemetry showed known chronic afib. Permissive HTN allowed with BPs to 180. MRI confirmed left ACAstroke with additional punctate lesions bilaterally. Vascular imaging showed severe stenosis and occlusion right ICA, severe left ICA, and right vertebral. TTE showed EF 40-45%, moderately reduced but improved from prior, sclerotic aortic valve with mod stenosis (worse than prior), mild stenosis atmitral valve repair, severe left and mod right atrial enlargement, mildly dilated aortic root (stable from prior). 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 AC resumed day 5. Received plavix at , but by discharge was stopped as he had not been taking due to prior GI bleed. Carvedilol changed to metoprolol for unknown reasons, and PPI bid started although pt reports he does not want to be on this. The patient worked with PT OT and BLOOD AND PLASMA LABORATORY ASSISTANT throughout their stay however given residual deficits, requiring CGA to min assist, it was felt beneficial to transfer to an acute rehabilitation level of care for intensive PT OT and BLOOD AND PLASMA LABORATORY ASSISTANT with the goal of optimizing function and eventual return home. Review of Systems Constitutional: Negative. Pain assessment: Self-reports no pain. Eye: No blurring, No double vision. Ear/Nose/Mouth/Throat: No dysphagia. Respiratory: No shortness of breath, No cough, No wheezing, No sputum production. Cardiovascular: No chest pain, No palpitations, No bradycardia, No tachycardia, No leg swelling. Gastrointestinal: Constipation, No nausea, No vomiting, No diarrhea, No abdominal pain. Genitourinary: No dysuria, No urinary frequency, No urinary incontinence. Hematology/Lymphatics: Anemia. Endocrine: No hyperglycemia. Musculoskeletal: No back pain, No joint pain, No muscle pain, No joint swelling. Integumentary: No rash, No breakdown, No skin lesion. Neurologic: Weakness, No confusion, No numbness, No tingling, No dizziness, No memory loss, No speech problems. Psychiatric: No anxiety, No depression, No sleeping problems. Health Status Allergies: Nonallergic Reactions (All) Unknown Aspirin- Gi bleeding., Allergies (1) Active Severity Reaction aspirin Unknown GI bleeding Medications Current medications: (Selected) Inpatient Medications Ordered Colace: 100 mg = 1 cap(s), Oral, BID Crestor: 40 mg = 1 tab(s), Oral, Daily Dulcolax Laxative: 10 mg = 1 supp, Rectal, Daily, PRN: Constipation Flomax: 0.4 mg = 1 cap(s), Oral, Daily Humalog (Lispro) Sliding Scale Medium Dose Algorithm: Medium Dose Scale, Subcutaneous, QIDACHS Lantus: 10 unit(s) = 0.1 mL, Subcutaneous, Daily Metoprolol Tartrate: 12.5 mg = 1 tab(s), Oral, BID MiraLax: 17 gm = 1 packet(s), Oral, Daily, PRN: Constipation Protonix: 40 mg = 1 tab(s), Oral, BID acetaminophen: 650 mg = 2 tab(s), Oral, q4hr, PRN: Pain apixaban: 2.5 mg = 1 tab(s), Oral, BID bacitracin zinc 500 units/g topical ointment: 1 leopoldo, Topical, q8hr, PRN: Other (see comment) fluticasone 50 mcg/inh nasal spray: 50 mcg = 1 spray(s), Nasal, Daily glucagon: 1 mg = 1 vial(s), Intramuscular, Daily, PRN: Blood Glucose glucose 40% oral gel: 37.5 gm = 1 EA, Oral, q30min, PRN: Low blood sugar melatonin: 3 mg = 1 tab(s), Oral, HS metFORMIN: 500 mg = 1 tab(s), Oral, BID senna: 17.2 mg = 2 tab(s), Oral, HS traZODone: 50 mg = 1 tab(s), Oral, HS, PRN: Insomnia Documented Medications Documented Crestor 40 mg oral tablet: 40 mg = 1 tab(s), Oral, Daily, 0 Refill(s) Flomax 0.4 mg oral capsule: 0.4 mg = 1 cap(s), Oral, Daily, 0 Refill(s) Refresh Plus ophthalmic solution: 1 drop(s), Ophthalmic, TID, PRN: for dry eyes, 0 Refill(s) apixaban 2.5 mg oral tablet: 2.5 mg = 1 tab(s), Oral, BID, 0 Refill(s) fluorouracil: 0 Refill(s) fluticasone 50 mcg/inh nasal spray: 50 mcg = 1 spray(s), Nasal, Daily, 0 Refill(s) metFORMIN 500 mg oral tablet, extended release: 500 mg = 1 tab(s), Oral, BID, 0 Refill(s) multivitamin: 1 tab(s), Oral, Daily, 0 Refill(s) tretinoin: 0 Refill(s), Medications (19) Active Scheduled: (12) apixaban 2.5 mg tab [[facility]] 2.5 mg 1 tab(s), Oral, BID docusate sodium 100 mg Cap [[facility]] 100 mg 1 cap(s), Oral, BID fluticasone nasal 50 mcg 1 spray(s), Nasal, Daily insulin glargine 100 units/mL SubQ [[facility]] 10 unit(s) 0.1 mL, Subcutaneous, Daily insulin lispro (HumaLOG) 100 units/mL SubQ PEN [[facility]] Medium Dose Scale, Subcutaneous, QIDACHS melatonin 3 mg Tab [[facility]] 3 mg 1 tab(s), Oral, HS metFORMIN 500 mg ER Tab [[facility]] 500 mg 1 tab(s), Oral, BID metoprolol 12.5 mg pre-split tablet [[facility]] 12.5 mg 1 tab(s), Oral, BID pantoprazole 40 mg Oral EC Tab [[facility]] 40 mg 1 tab(s), Oral, BID rosuvastatin 40 mg 1 tab(s), Oral, Daily senna 8.6 mg Tab [[facility]] 17.2 mg 2 tab(s), Oral, HS tamsulosin 0.4 mg Oral Cap [[facility]] 0.4 mg 1 cap(s), Oral, Daily Continuous: (0) PRN: (7) acetaminophen 325 mg Tab [[facility]] 650 mg 2 tab(s), Oral, q4hr bacitracin zinc 500 units/g Top Oint UD [[facility]] 1 leopoldo, Topical, q8hr bisacodyl 10 mg Supp [[facility]] 10 mg 1 supp, Rectal, Daily glucagon recombinant 1 mg Inj [[facility]] 1 mg 1 vial(s), Intramuscular, Daily glucose 40% oral gel ([facility]] 37.5 gm 1 EA, Oral, q30min polyethylene glycol 3350 Oral Pwdr Recon [[facility]] 17 gm 1 packet(s), Oral, Daily traZODone 50 mg Tab [[facility]] 50 mg 1 tab(s), Oral, HS . Medications (19) Active Scheduled: (12) apixaban 2.5 mg tab [[facility]] 2.5 mg 1 tab(s), Oral, BID docusate sodium 100 mg Cap [[facility]] 100 mg 1 cap(s), Oral, BID fluticasone nasal 50 mcg 1 spray(s), Nasal, Daily insulin glargine 100 units/mL SubQ [[facility]] 10 unit(s) 0.1 mL, Subcutaneous, Daily insulin lispro (HumaLOG) 100 units/mL SubQ PEN [[facility]] Medium Dose Scale, Subcutaneous, QIDACHS melatonin 3 mg Tab [[facility]] 3 mg 1 tab(s), Oral, HS metFORMIN 500 mg ER Tab [[facility]] 500 mg 1 tab(s), Oral, BID metoprolol 12.5 mg pre-split tablet [[facility]] 12.5 mg 1 tab(s), Oral, BID pantoprazole 40 mg Oral EC Tab [[facility]] 40 mg 1 tab(s), Oral, BID rosuvastatin 40 mg 1 tab(s), Oral, Daily senna 8.6 mg Tab [[facility]] 17.2 mg 2 tab(s), Oral, HS tamsulosin 0.4 mg Oral Cap [[facility]] 0.4 mg 1 cap(s), Oral, Daily Continuous: (0) PRN: (7) acetaminophen 325 mg Tab [[facility]] 650 mg 2 tab(s), Oral, q4hr bacitracin zinc 500 units/g Top Oint UD [[facility]] 1 leopoldo, Topical, q8hr bisacodyl 10 mg Supp [[facility]] 10 mg 1 supp, Rectal, Daily glucagon recombinant 1 mg Inj [[facility]] 1 mg 1 vial(s), Intramuscular, Daily glucose 40% oral gel ([facility]] 37.5 gm 1 EA, Oral, q30min polyethylene glycol 3350 Oral Pwdr Recon [[facility]] 17 gm 1 packet(s), Oral, Daily traZODone 50 mg Tab [[facility]] 50 mg 1 tab(s), Oral, HS . Problem list: All Problems Afib / [id number] / Confirmed Basal cell carcinoma (BCC) / [id number] / Confirmed CAD (coronary artery disease) / [id number] / Confirmed GI bleed / [id number] / Confirmed S/P mitral valve repair / [id number] / Confirmed Hypertriglyceridemia / [id number] / Confirmed MVP (mitral valve prolapse) / [id number] / Confirmed, Active Problems (7) Afib Basal cell carcinoma (BCC) CAD (coronary artery disease) GI bleed Hypertriglyceridemia MVP (mitral valve prolapse) S/P mitral valve repair Histories Past Medical History: Active Afib (7051037600) CAD (coronary artery disease) (9307704573) Basal cell carcinoma (BCC) (497135034) Hypertriglyceridemia (188138656) GI bleed (343971747) S/P mitral valve repair (9386883444) Family History: No family history items have been selected or recorded., NC Procedure history: No active procedure history items have been selected or recorded. Social History Social History No active social history has been recorded Psychosocial History No active psychosocial history has been recorded . Family/ Social situation: Lives with in [place]. [address] home, main level living, with occasional use of upstairs. No tobacco no alcohol no MJ no caffeine, . Physical Examination VS/Measurements Vital Signs 11/12/2023 12:00 EST Temperature Oral 36.6 DegC Respiratory Rate 16 br/min Systolic Blood Pressure 96 mmHg Diastolic Blood Pressure 62 mmHg SpO2 94 % , Vital Signs (last 24 hrs) Last Charted Temp Oral 36.6 DegC (NOV 12 12:00) Resp Rate 16 br/min (NOV 12 12:00) SBP 96 mmHg (NOV 12 12:00) DBP 62 mmHg (NOV 12 12:00) Height 167.6 cm (NOV 12 12:40) , Measurements from flowsheet : Measurements 11/12/2023 12:40 EST Height 167.6 cm Weight Dosing 69.491 kg General: Alert and oriented, No acute distress, Well developed, Well nourished. Eye: Extraocular movements are intact, Normal conjunctiva. Respiratory: Lungs are clear to auscultation, Respirations are non-labored. Cardiovascular: Normal rate, irreg HR c/w afib . Gastrointestinal: Soft, Non-tender, Non-distended, Normal bowel sounds. Integumentary: Intact, No rash. Mental status/ Cognition Alert. Oriented x 3. Cognition intact. able to follow verbal commands for MMT expressive aphasia, requires extra time for verbal responses but able to xiomara eneeds known. Sensorimotor/ Reflexes Normal sensation. strength good with some apraxia noted RUE 4+/5 RLE 4/5. DTRs normal symmetric. Psychiatric: Cooperative, Appropriate mood & affect. Review / Management Results review: Labs (Last four charted values) Cr 0.87 (NOV 12) , Lab results 11/12/2023 12:12 EST Glucose POC 190 mg/dL HI 11/12/2023 6:04 EST Creatinine 0.87 mg/dL . 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 Impairments: Hemiparesis, Fatigue. Speech/ language: Aphasia. Disabilities: Decreased: Mobility, Ability to transfer self, Ability to ambulate, Ability to dress self, Ability to feed self, Ability to bathe self, Ability to toilet self, Ability to self-care, Communication abilities, Problem- solving abilities, Safety. Limiting factors: . Nursing goals: Nutrition/diet: Maintain optimal caloric intake, Tolerate regular diet. Medication monitor for treatment: Effects, Adverse reactions. Bladder: Continent, Regulated with program. Bowel: Continent, Regulated with program. Skin: Promote wound healing, Prevent breakdown. Pain/Sleep: Regulate sleep cycle, Decrease pain level. Occupational therapy goals: Setup/ supervision, Equipment/DME assessment. Physical therapy goals: Setup/ supervision, Equipment/DME assessment, Home assessment. Speech Therapy goals: Setup/ supervision, Dysphagia assessment, Cognitive assessment, Language assessment. Therapeutic Recreation Goals: Leisure skills assessment, Improve social interaction with peers. Patient/Family Goals: Return to home independent, Return to home with assistance. Potential for improvement to meet goals: Excellent. Patient/Family Educational Needs: ADL assistance, Bowel/bladder program, Disease process education,Medication education, Safety awareness, Transfers. Estimated length of stay: 10 days. Disposition: Home. Code Status: Full code. Medical Plan DVT prophylaxis: anti-embolus stockings, on apixaban for afib. Skin: pressure relief, positioning, edema management. Respiratory: pulmonary hygiene incentive spirometry. Cardiovascular: HTN HLD - continue crestor 40. Metoprolol continued from however pt would like to resume home carevdilol, after period permissive HTN afib - watchman procedure on hold untul outpatient, after recovery from stroke. Continue apixaban 2.5 (pt declines recommended 5 bid) . Endocrine: DM2 - lantus added at 10 units, with ISS, however maybe able to taper off this as his activity level here increases. CCD diet, ISS. Diabetic management: accuchecks, carbohydrate control, oral agents, insulin. GI: prophylaxis (proton pump inhibitors, currently on PPI bid however pt was not taking this prior to admission and would like to stop), Constipation (laxative, stool softener). : retention (post void residual, voiding program, continue flomax and check PVRs, cath as needed >400cc). Nutrition: regular, reg with thins per BLOOD AND PLASMA LABORATORY ASSISTANT. Fluids/ Electrolytes: encourage po foods and fluids. Psych/ Sleep. Pain: managed with (acetaminophen, PRN). #[facility] medication review: Did a complete drug regimen review identify potential clinically significant medication issues? - YES ??? Issues found during review - started on metoproliol unknown reasons, and unclear why on PPI bid Did the facility complete prescribed/recommended actions in response to the identified potential clinically significant medication issues by midnight of the next calendar day? - YES . #CMS High-Risk Drug Classes Is patient taking any medications in the following pharmacological classifications: Antipsychotic, Anticoagulant, Antibiotic, Opioid, Antiplatelet, Hypoglycemic (including insulin)? YES - Anticoagulant, Hypoglycemic (including insulin) Is there an indication noted for all medications in the drug classes noted above? YES, indication noted . Rehab Impairment Categories Impairment category/ codes table I & II Stroke: 01.2 Right body involvement (left brain). Post Admission Physician Evaluation: Documentation Reviewed: I have reviewed the Preadmission Screen. Functional status documented at preadmission: I agree with the patient's current functional status as documented in the preadmission screening. Risk for complications: I agree with the risk for clinical complications documented in the preadmission screening. Medical conditions: The patient's medical conditions can be managed in the rehab hospital, The planof treatment is documented above in the history and physical. Patient participation in therapy: The patient can participate in, and will benefit from an intense therapy program at least 3 hours per day / 5 days per week. Therapies/services include:, Physical therapy, Occupational therapy, Speech language pathology, Rehabilitation Nursing, Case Management, Therapeutic Recreation, Information Engineer. [Electronically Signed on: 11/12/2023 13:18 EST] Flavia Zaman MD, MD [Electronically Signed on: 11/12/2023 13:51 EST] Flavia Zaman MD, MD [Electronically Signed on: 11/13/2023 12:31 EST] Flavia Zaman MD, MD [Verified on: 11/12/2023 13:18 EST] Flavia Zaman MD, MD Progress note * Flavia Zaman MD: PERFORM, SIGN, VERIFY Event Display: Progress Note-Physician Authored Date: Patient: ETTA BAH Age: 83 years Sex: Male : 1940 Associated Diagnoses: None Author: Flavia Zaman MD Subjective Requested reducing amount of BG checks. Also requested having IV removed. Discharge on track for tomorrow to home. Health Status Allergies: Allergic Reactions (All) Moderate Protonix- Diarrhea. Nonallergic Reactions (All) Unknown Aspirin- Gi bleeding., Allergies (2) Active Severity Reaction Protonix Moderate Diarrhea aspirin Unknown GI bleeding Medications Current medications: (Selected) Inpatient Medications Ordered Colace: 100 mg = 1 cap(s), Oral, BID Dulcolax Laxative: 10 mg = 1 supp, Rectal, Daily, PRN: Constipation Flomax: 0.4 mg = 1 cap(s), Oral, Daily Metoprolol Tartrate: 12.5 mg = 1 tab(s), Oral, BID MiraLax: 17 gm = 1 packet(s), Oral, Daily, PRN: Constipation acetaminophen: 650 mg = 2 tab(s), Oral, q4hr, PRN: Pain apixaban: 2.5 mg = 1 tab(s), Oral, BID atorvastatin: 80 mg = 1 tab(s), Oral, Daily bacitracin zinc 500 units/g topical ointment: 1 leopoldo, Topical, q8hr, PRN: Other (see comment) fluticasone 50 mcg/inh nasal spray: 50 mcg = 1 spray(s), Nasal, Daily, PRN: Allergy symptoms glucagon: 1 mg = 1 vial(s), Intramuscular, Daily, PRN: Blood Glucose glucose 40% oral gel: 37.5 gm = 1 EA, Oral, q30min, PRN: Low blood sugar melatonin: 3 mg = 1 tab(s), Oral, HS metFORMIN: 1,000 mg = 2 tab(s), Oral, BIDWM senna: 17.2 mg = 2 tab(s), Oral, HS traZODone: 50 mg = 1 tab(s), Oral, HS, PRN: Insomnia Documented Medications Documented Crestor 40 mg oral tablet: 40 mg = 1 tab(s), Oral, Daily, 0 Refill(s) Flomax 0.4 mg oral capsule: 0.4 mg = 1 cap(s), Oral, Daily, 0 Refill(s) Refresh Plus ophthalmic solution: 1 drop(s), Ophthalmic, TID, PRN: for dry eyes, 0 Refill(s) apixaban 2.5 mg oral tablet: 2.5 mg = 1 tab(s), Oral, BID, 0 Refill(s) fluorouracil: 0 Refill(s) fluticasone 50 mcg/inh nasal spray: 50 mcg = 1 spray(s), Nasal, Daily, 0 Refill(s) metFORMIN 500 mg oral tablet, extended release: 500 mg = 1 tab(s), Oral, BID, 0 Refill(s) multivitamin: 1 tab(s), Oral, Daily, 0 Refill(s) tretinoin: 0 Refill(s), Medications (16) Active Scheduled: (8) apixaban 2.5 mg tab [[facility]] 2.5 mg 1 tab(s), Oral, BID atorvastatin 80 mg Tab [[facility]] 80 mg 1 tab(s), Oral, Daily docusate sodium 100 mg Cap [[facility]] 100 mg 1 cap(s), Oral, BID melatonin 3 mg Tab [[facility]] 3 mg 1 tab(s), Oral, HS metFORMIN 500 mg ER Tab [[facility]] 1,000 mg 2 tab(s), Oral, BIDWM metoprolol 12.5 mg pre-split tablet [[facility]] 12.5 mg 1 tab(s), Oral, BID senna 8.6 mg Tab [[facility]] 17.2 mg 2 tab(s), Oral, HS tamsulosin 0.4 mg Oral Cap [[facility]] 0.4 mg 1 cap(s), Oral, Daily Continuous: (0) PRN: (8) acetaminophen 325 mg Tab [[facility]] 650 mg 2 tab(s), Oral, q4hr bacitracin zinc 500 units/g Top Oint UD [[facility]] 1 leopoldo, Topical, q8hr bisacodyl 10 mg Supp [[facility]] 10 mg 1 supp, Rectal, Daily fluticasone Nasal 50 mcg/inh Hilda [[facility]] 50 mcg 1 spray(s), Nasal, Daily glucagon recombinant 1 mg Inj [[facility]] 1 mg 1 vial(s), Intramuscular, Daily glucose 40% oral gel ([facility]] 37.5 gm 1 EA, Oral, q30min polyethylene glycol 3350 Oral Pwdr Recon [[facility]] 17 gm 1 packet(s), Oral, Daily traZODone 50 mg Tab [[facility]] 50 mg 1 tab(s), Oral, HS . Problem list: All Problems Afib / [id number] / Confirmed Basal cell carcinoma (BCC) / 107041036 / Confirmed CAD (coronary artery disease) / 9139556175 / Confirmed GI bleed / 409020854 / Confirmed S/P mitral valve repair / [id number] / Confirmed Hypertriglyceridemia / [id number] / Confirmed MVP (mitral valve prolapse) / [id number] / Confirmed PAD (peripheral artery disease) / 1895514530 / Confirmed DM2 (diabetes mellitus, type 2) / 286015283 / Confirmed, Active Problems (9) Afib Basal cell carcinoma (BCC) CAD (coronary artery disease) DM2 (diabetes mellitus, type 2) GI bleed Hypertriglyceridemia MVP (mitral valve prolapse) PAD (peripheral artery disease) S/P mitral valve repair Objective VS/Measurements Vital Signs (last 24 hrs) Last Charted Temp Oral 37 DegC (NOV 24 20:00) Heart Rate Peripheral 94 bpm (NOV 25 07:00) Resp Rate 18 br/min (NOV 25:) SBP 96 mmHg (NOV 25:00) DBP L 54 mmHg (NOV 25:) General: Alert and oriented, No acute distress. Respiratory: Respirations are non-labored. Cardiovascular: Normal rate, Regular rhythm. Gastrointestinal: Non-distended. Integumentary: Intact, No rash. Mental status/ Cognition +exp aphasia with good receptive language. Movement/ Coordination gait steady with mild ataxia . Psychiatric: Cooperative, Appropriate mood & affect, occasionally frustated with expressive speech however usually can report his needs with extra time. Results Review Results review Labs (Last four charted values) WBC 5.4 (NOV 23) 6.5 (NOV 18) 7.2 (NOV 13) Hgb 14.9 (NOV 23) 15.1 (NOV 18) 15.8 (NOV 13) Hct 43.3 (NOV 23) 44.2 (NOV 18) 46.3 (NOV 13) Plt 162 (NOV 23) 146 (NOV 18) L 138 (NOV 13) Na 142 (NOV 23) 142 (NOV 18) 141 (NOV 13) K 4.4 (NOV 23) 3.9 (NOV 18) 4.3 (NOV 13) CO2 25 (NOV 23) 24 (NOV 18) 25 (NOV 13) Cl 105 (NOV 23) 106 (NOV 18) 106 (NOV 13) Cr .83 (NOV 23) L .79 (NOV 18) .90 (NOV 13) 0.87 (NOV 12) BUN H 22 (NOV 23) H 22 (NOV 18) H 26 (NOV 13) Glucose H 120 (NOV 23) H 118 (NOV 18) H 169 (NOV 13) Mg L 0.54 (NOV 23) Ca 9.3 (NOV 23) 8.9 (NOV 18) 9.2 (NOV 13) Lab results 11/25/2023 12:01 EST Glucose POC 115 mg/dL HI 11/25/2023 8:00 EST Blood Glucose, Capillary POC 92 mg/dL 11/25/2023 7:06 EST Glucose POC 92 mg/dL 11/24/2023 20:06 EST Blood Glucose, Capillary POC 115 mg/dL HI 11/24/2023 20:03 EST Glucose POC 115 mg/dL HI 11/24/2023 17:26 EST Blood Glucose, Capillary POC 109 mg/dL HI 11/24/2023 17:12 EST Glucose POC 109 mg/dL HI 11/24/2023 12:04 EST Blood Glucose, Capillary POC 115 mg/dL HI 11/24/2023 12:02 EST Glucose POC 115 mg/dL HI 11/24/2023 7:16 EST Blood Glucose, Capillary POC 119 mg/dL HI 11/24/2023 7:15 EST Glucose POC 119 mg/dL MS Impression and Plan #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 #Cardiovascular HTN HLD - continue crestor 40. Metoprolol 12.5 bid continued from [facility] however pt would like to resume home carvedilol, after period permissive HTN afib - watchman procedure on hold until outpatient, after recovery from stroke. Continue apixaban 2.5 (pt declines recommended 5 bid) #DM2 CCD diet, ISS. metformin 500 bid per home, lantus added at 10 units, with ISS most BGs <140 so stopped lantus BGs then 130-180, so discussed increasing metformin but pt hesitant 11/20 pt agrees to increase metformin to 1000 bid BGs now 100-140 continue follow BGs, adjust as needed f/u with PCP after discharge re ongoing management DM2 #GI prophylaxis proton pump inhibitor bid per stopped per pt preference as causes diarrhea per pt report #pain managed with acetaminophen, PRN #dispo home after 2 weeks LOS with f/u home health services as needed, planning d/c 11/26 f/u PCP neuro cards #Potential or actual clinically significant medication issues addressed per CMS regulations: NO 25 min total time spent on chart review, team discussion, face to face eval [Electronically Signed on: 11/25/2023 13:11 EST] Flavia Zaman MD, MD [Verified on: 11/25/2023 13:11 EST] Flavia Zaman MD, MD * Flavia Zaman MD: PERFORM, SIGN, VERIFY Event Display: Progress Note-Physician Authored Date: [id number] Patient: ETTA BAH Age: 83 years Sex: Male : 1940 Associated Diagnoses: None Author: Flavia Zaman MD Subjective Over weekend, had near syncope event, with CT showing only small amount petechial bleed, ow negative. Back to baseline after that with no new events since. Feels well today. BGs well controlled Health Status Allergies: Allergic Reactions (All) Moderate Protonix- Diarrhea. Nonallergic Reactions (All) Unknown Aspirin- Gi bleeding., Allergies (2) Active Severity Reaction Protonix Moderate Diarrhea aspirin Unknown GI bleeding Medications Current medications: (Selected) Inpatient Medications Ordered Colace: 100 mg = 1 cap(s), Oral, BID Dulcolax Laxative: 10 mg = 1 supp, Rectal, Daily, PRN: Constipation Flomax: 0.4 mg = 1 cap(s), Oral, Daily Humalog (Lispro) Sliding Scale Medium Dose Algorithm: Medium Dose Scale, Subcutaneous, QIDACHS Metoprolol Tartrate: 12.5 mg = 1 tab(s), Oral, BID MiraLax: 17 gm = 1 packet(s), Oral, Daily, PRN: Constipation acetaminophen: 650 mg = 2 tab(s), Oral, q4hr, PRN: Pain apixaban: 2.5 mg = 1 tab(s), Oral, BID atorvastatin: 80 mg = 1 tab(s), Oral, Daily bacitracin zinc 500 units/g topical ointment: 1 leopoldo, Topical, q8hr, PRN: Other (see comment) fluticasone 50 mcg/inh nasal spray: 50 mcg = 1 spray(s), Nasal, Daily, PRN: Allergy symptoms glucagon: 1 mg = 1 vial(s), Intramuscular, Daily, PRN: Blood Glucose glucose 40% oral gel: 37.5 gm = 1 EA, Oral, q30min, PRN: Low blood sugar melatonin: 3 mg = 1 tab(s), Oral, HS metFORMIN: 1,000 mg = 2 tab(s), Oral, BIDWM senna: 17.2 mg = 2 tab(s), Oral, HS traZODone: 50 mg = 1 tab(s), Oral, HS, PRN: Insomnia Documented Medications Documented Crestor 40 mg oral tablet: 40 mg = 1 tab(s), Oral, Daily, 0 Refill(s) Flomax 0.4 mg oral capsule: 0.4 mg = 1 cap(s), Oral, Daily, 0 Refill(s) Refresh Plus ophthalmic solution: 1 drop(s), Ophthalmic, TID, PRN: for dry eyes, 0 Refill(s) apixaban 2.5 mg oral tablet: 2.5 mg = 1 tab(s), Oral, BID, 0 Refill(s) fluorouracil: 0 Refill(s) fluticasone 50 mcg/inh nasal spray: 50 mcg = 1 spray(s), Nasal, Daily, 0 Refill(s) metFORMIN 500 mg oral tablet, extended release: 500 mg = 1 tab(s), Oral, BID, 0 Refill(s) multivitamin: 1 tab(s), Oral, Daily, 0 Refill(s) tretinoin: 0 Refill(s), Medications (17) Active Scheduled: (9) apixaban 2.5 mg tab [[facility]] 2.5 mg 1 tab(s), Oral, BID atorvastatin 80 mg Tab [[facility]] 80 mg 1 tab(s), Oral, Daily docusate sodium 100 mg Cap [[facility]] 100 mg 1 cap(s), Oral, BID insulin lispro (HumaLOG) 100 units/mL SubQ PEN [[facility]] Medium Dose Scale, Subcutaneous, QIDACHS melatonin 3 mg Tab [[facility]] 3 mg 1 tab(s), Oral, HS metFORMIN 500 mg ER Tab [[facility]] 1,000 mg 2 tab(s), Oral, BIDWM metoprolol 12.5 mg pre-split tablet [[facility]] 12.5 mg 1 tab(s), Oral, BID senna 8.6 mg Tab [[facility]] 17.2 mg 2 tab(s), Oral, HS tamsulosin 0.4 mg Oral Cap [[facility]] 0.4 mg 1 cap(s), Oral, Daily Continuous: (0) PRN: (8) acetaminophen 325 mg Tab [[facility]] 650 mg 2 tab(s), Oral, q4hr bacitracin zinc 500 units/g Top Oint UD [[facility]] 1 leopoldo, Topical, q8hr bisacodyl 10 mg Supp [[facility]] 10 mg 1 supp, Rectal, Daily fluticasone Nasal 50 mcg/inh Hilda [[facility]] 50 mcg 1 spray(s), Nasal, Daily glucagon recombinant 1 mg Inj [[facility]] 1 mg 1 vial(s), Intramuscular, Daily glucose 40% oral gel ([facility]] 37.5 gm 1 EA, Oral, q30min polyethylene glycol 3350 Oral Pwdr Recon [[facility]] 17 gm 1 packet(s), Oral, Daily traZODone 50 mg Tab [[facility]] 50 mg 1 tab(s), Oral, HS . Problem list: All Problems Afib / [id number] / Confirmed Basal cell carcinoma (BCC) / [id number] / Confirmed CAD (coronary artery disease) / 8153686738 / Confirmed GI bleed / 947469796 / Confirmed S/P mitral valve repair / [id number] / Confirmed Hypertriglyceridemia / 082827167 / Confirmed MVP (mitral valve prolapse) / 7572323736 / Confirmed PAD (peripheral artery disease) / 8097267905 / Confirmed DM2 (diabetes mellitus, type 2) / 092242530 / Confirmed, Active Problems (9) Afib Basal cell carcinoma (BCC) CAD (coronary artery disease) DM2 (diabetes mellitus, type 2) GI bleed Hypertriglyceridemia MVP (mitral valve prolapse) PAD (peripheral artery disease) S/P mitral valve repair Objective VS/Measurements Vital Signs (last 24 hrs) Last Charted Temp Oral 36.4 DegC (NOV 24:) Heart Rate Peripheral 68 bpm (NOV 24:) Resp Rate 18 br/min (NOV 24 06:21) SBP 101 mmHg (NOV 24:) DBP 68 mmHg (NOV 24:) General: Alert and oriented, No acute distress. Respiratory: Respirations are non-labored. Cardiovascular: Normal rate, Regular rhythm. Gastrointestinal: Non-distended. Integumentary: Intact, No rash. Mental status/ Cognition +exp aphasia with good receptive language. Movement/ Coordination gait steady but ataxia noted with more targeted movements of RLE. Psychiatric: Cooperative, Appropriate mood & affect, occasionally frustated with expressive speech however usually can report his needs with extra time. Results Review Results review Labs (Last four charted values) WBC 5.4 (NOV 23) 6.5 (NOV 18) 7.2 (NOV 13) Hgb 14.9 (NOV 23) 15.1 (NOV 18) 15.8 (NOV 13) Hct 43.3 (NOV 23) 44.2 (NOV 18) 46.3 (NOV 13) Plt 162 (NOV 23) 146 (NOV 18) L 138 (NOV 13) Na 142 (NOV 23) 142 (NOV 18) 141 (NOV 13) K 4.4 (NOV 23) 3.9 (NOV 18) 4.3 (NOV 13) CO2 25 (NOV 23) 24 (NOV 18) 25 (NOV 13) Cl 105 (NOV 23) 106 (NOV 18) 106 (NOV 13) Cr .83 (NOV 23) L .79 (NOV 18) .90 (NOV 13) 0.87 (NOV 12) BUN H 22 (NOV 23) H 22 (NOV 18) H 26 (NOV 13) Glucose H 120 (NOV 23) H 118 (NOV 18) H 169 (NOV 13) Mg L 0.54 (NOV 23) Ca 9.3 (NOV 23) 8.9 (NOV 18) 9.2 (NOV 13) Lab results 11/24/2023 12:04 EST Blood Glucose, Capillary POC 115 mg/dL HI 11/24/2023 12:02 EST Glucose POC 115 mg/dL HI 11/24/2023 7:16 EST Blood Glucose, Capillary POC 119 mg/dL HI 11/24/2023 7:15 EST Glucose POC 119 mg/dL HI 11/23/2023 20:07 EST Glucose POC 114 mg/dL MS 11/23/2023 20:00 EST Blood Glucose, Capillary POC 114 mg/dL MS 11/23/2023 16:39 EST Glucose POC 104 mg/dL HI 11/23/2023 16:00 EST Blood Glucose, Capillary POC 104 mg/dL HI 11/23/2023 12:00 EST Blood Glucose, Capillary POC 105 mg/dL MS 11/23/2023 11:13 EST Glucose POC 105 mg/dL MS 11/23/2023 7:21 EST Blood Glucose, Capillary POC 109 mg/dL MS 11/23/2023 7:19 EST Glucose POC 109 mg/dL MS 11/23/2023 3:25 EST WBC DH 5.4 x10(3)/mcL RBC DH 4.69 x10(6)/mcL Hgb DH 14.9 g/dL Hct DH 43.3 % MCV DH 92.3 fL MCH DH 31.8 pg MCHC DH 34.4 g/dL Platelet DH 162 x10(3)/mcL RDWSD DH 43.9 fL RDWCV DH 13.1 % MPV DH 10.2 fL Creatinine 0.83 mg/dL Glucose Lvl DH 120 mg/dL HI BUN DH 22 mg/dL HI Est GFR DH 88 mL/min/1.73 m2 Sodium Lvl DH 142 mmol/L Potassium Lvl DH 4.4 mmol/L Chloride Lvl DH 105 mmol/L CO2 DH 25 mmol/L Anion Gap DH 12 mmol/L Calcium Lvl DH 9.3 mg/dL Magnesium Lvl DH 0.54 mmol/L LOW 11/23/2023 2:17 EST Glucose POC 130 mg/dL HI 11/23/2023 2:15 EST Blood Glucose, Capillary POC 130 mg/dL HI Impression and Plan #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 #Cardiovascular HTN HLD - continue crestor 40. Metoprolol 12.5 bid continued from however pt would like to resume home carvedilol, after period permissive HTN afib - watchman procedure on hold until outpatient, after recovery from stroke. Continue apixaban 2.5 (pt declines recommended 5 bid) #DM2 CCD diet, ISS. metformin 500 bid per home, lantus added at 10 units, with ISS most BGs <140 so stopped lantus BGs then 130-180, so discussed increasing metformin but pt hesitant 11/20 pt agrees to increase metformin to 1000 bid BGs now 100-140 continue follow BGs, adjust as needed f/u with PCP after discharge re ongoing management DM2 #GI prophylaxis proton pump inhibitor bid per stopped per pt preference as causes diarrhea per pt report #pain managed with acetaminophen, PRN #dispo home after 2 weeks LOS with f/u home health services as needed, planning d/c 11/26 f/u PCP neuro cards #Potential or actual clinically significant medication issues addressed per CMS regulations: NO 25 min total time spent on chart review, team discussion, face to face eval [Electronically Signed on: 11/24/2023 12:59 EST] Flavia Zaman MD, MD [Verified on: 11/24/2023 12:59 EST] Flavia Zaman MD, MD * Karthikeyan Rich MD: MODIFY, PERFORM Event Display: Progress Note-Physician Authored Date: [id number] ETTA BAH :1940 Age:83 years Sex:Male Visit Date:11/12/2023 Primary Care Physician: Bobby Das Called by nursing as patient was in the bathroom and she heard a large thump. Found patient frozen but thinks he did not lose consciousness. No reported new weakness/deficits. His HR was 48 during this event. He is on AC, unsure if he hit his head. No postictal confusion/tongue biting/incontinence. No witnessed shaking/seizure like activity. HR recovered to 88 shortly thereafter. blood sugar wnl ?? A: Presentation favors vasovagal event but will obtain ekg and CT head to assess for other pathology. Unsure if he hit??his head and on AC.?? Place holding parameters on metoprolol tartrate. Monitor on telemetry [Electronically Signed on: 11/23/2023 02:39 EST] Karthikeyan Rich MD [Electronically Signed on: 11/23/2023 02:39 EST] Karthikeyan Rich MD [Verified on: 11/23/2023 02:39 EST] Karthikeyan Rich MD * Karthikeyan Rich MD: PERFORM Event Display: Progress Note-Physician Authored Date: [id number] Labs reviewed. IV mag ordered x2. otherwise wnl. CT head reviewed with teleneurology. Awaiting final recommendations. [Electronically Signed on: 11/23/2023 04:15 EST] Katrhikeyan Rich MD * Karthikeyan Rich MD: PERFORM Event Display: Progress Note-Physician Authored Date: [id number] Per neuro, hemorrhagic conversion noted on CT has likely been there for days and not related to fall. Continue anticoagulation. [Electronically Signed on: 11/23/2023 05:10 EST] Karthikeyan Rich MD Patient Care team information Care Team Personnel Name: Bobby Das Position: [facility] No Access Member Role: Informed Provider Care Team Related Persons Name: SEEMA BAHNA Address: Home [address] [place] [address], [id number] Name: ANYA WAGNER
--- OUTSIDE RECORDS SUMMARY | 2024-09-17 01:28 | XMS_ITS | Encounter Summary ---
Author Organization [facility] Address [address] [place] [address] Care Team Providers Care Teamsite Developer Name Role Phone Bobby Das MD Primary Care Provider [phone] Reason for Visit * Reason Comments Cancer Encounter Details Date Type Department Care Team (Latest Contact Info) Description 01/08/2018 Radiation Therapy Visit [facility] Radiation Oncology - [address] [phone] Isela Law, RN Malignant neoplasm of prostate (HCC-CMS) (Primary Dx) Social History Tobacco Use Types Packs/Day Years Used Date Smoking Tobacco: Every Day Smokeless Tobacco: Never Sex and Gender Information Value Date Recorded Sex Assigned at Not on file Gender Identity Not on file Sexual Orientation Not on file documented as of this encounter Progress Notes * Isela Law RN - 01/08/2018 1319 EST [...] with all pre-procedure instructions and started his antibiotic as planned on 01/07/18. All of his questions were answered prior to signing consent. He was placedon the procedure table in lithotomy position. His peritoneum was anesthestized with injectable lidocaine by Dr. Gutierrez and topical lidocaine was placed in his rectum prior to inserting the transrectal ultrasound. He states he had no pain or discomfort. He tolerated the procedure well. Prior to discharge he was able to urinate and states he had no blood in his urine. He reports no pain or discomfort post procedure. He will return to the clinic on 01/16/18 for his planned simulation appointment.He understands he needs to have a full [...] prostate documented in this encounter Care Teams Teamsite Developer Relationship Specialty Start Date End Date Bobby Das MD [address] [place] [address] ,[address] [place] [address] PCP - General 07/06/15 documented as of this encounter
--- OUTSIDE RECORDS SUMMARY | 2024-09-17 01:28 | XMS_ITS | Encounter Summary ---
Author Organization [facility] Address [facility] [place] [address] Care Team Providers Care Seasonal Warehouse Associate Name Role Phone Bobby Das MD Primary Care Provider [phone] Encounter Details Date Type Department Care Team (Late st Contact Info) Description 11/23/2023 Interpretation Only [address] [phone] Karthikeyan Rich MD [address] [place] [address] Social History Tobacco Use Types Packs/Day Years Used Date Smoking Tobacco: Former Cigarettes 0.5 50 0 05/15/1972 - 05/15/2022 Smokeless Tobacco: Never Alcohol Use Standard Drinks/Week Comments Not Currently 42 (1 standard drink = 0.6 oz pure alcohol) Last alcohol use in May 2022 [facility] Utilities Answer Date Recorded In the past 12 months has [employer] electric, gas, oil, or water company threatened to shut off services in your home? No 11/08/2023 Hunger Vital Sign Answer Date Recorded Within the past 12 months, y ou worried that your food would run out before you got the money to buy more. Never true 11/08/20 23 Within the past 12 months, t he food you bought just didn't last and you didn't have money to get more. Never true 11/08/2023 PRAPARE - Transportation Answer Date Re corded In the past 12 months, has l ack of transportation kept you from medical appointments or from getting medications? No 10/12 In the past 12 months, has l ack of transportation kept you from meetings, work, or from getting things needed for daily living? No 11/08/2023 Housing Stability Vital Sign Answer Nguyễn e Recorded In the last 12 months, was t here a time when you were not able to pay the mortgage or rent on time? No 11/08/2023 Number of Places Lived in the Last Year Not on f ile 11/08/2023 In the last 12 months, was t here a time when you did not have a steady place to sleep or slept in a penitentiary (including now)? No 11/08/2023 IPV Inpatient Questions Answer Date Recorded Does Anyone Try to Keep You From Having Contact with Others or Doing Things Outside Your Home? no 11/08/2023 Feels Threatened by Someone no 10/12 Feels Unsafe at Home or Work/School no 11/08/2023 Physical Signs of Abuse Present no 11/08/2023 Sex and Gender Information Value Date Recorded Sex Assigned at Not on file Gender Identity Not on file Sexual Orientation Not on file documented as of this encounter Plan of Treatment Not on file documented as of this encounter Procedures Procedure Name Priority Date/Time Associated Diagnosis Comments CT HEAD WO CONTRAST (GENERIC) STAT 11/23/2023 2:45 AM EST documented in this encounter Results * CT Head wo Contrast (Generic) (11/23/2023 2:45 AM EST) PT CLASS I RAD ADMITDTTM [id number] RAD PT RAD MD INFO [id number]^Congius ta^Karthikeyan RAD EXAM DESC CTHEAD^CT HEAD OR BRAIN W/O CONTRAST^RIS RAD Anatomical Region Laterality Modality Head Computed Tomogra phy 11/23/2023 2:45 AM EST Impressions 11/23/2023 3:04 AM EST Petechial blood products in the site of now subacute left frontal infarction. No masslike hemorrhage. Thank you for letting us participate in the care of this patient. ??If you are a health care provider and have any questions regarding this report, please contact the number below. ??For patients who have questions please contact the health cattle care worker that requested your imaging first. ? Electronically signed by: Leland Gutierrez MD, [facility] ([phone]), at 11/23/2023 3:04 AM Narrative 11/23/2023 3:04 AM EST EXAMINATION: CT HEAD OR BRAIN W/O CONTRAST [...] sinuses and mastoid air cells are clear. Procedure Note Leland Gutierrez MD - 11/23/2023 EXAMINATION: CT HEAD OR BRAIN W/O CONTRAST CLINICAL HISTORY: seizure like activity in the setting of recent stroke. TECHNIQUE: CT head performed without intravenous contrast administration. COMPARISON: MRI 11/08/[address] 11/07/2023 FINDINGS: Serpiginous regions of petechial blood products along the region of left posterior frontal infarction. Surrounding cytotoxic edema with expected evolution. Local mass effect related to the cytotoxic edema. Unchangedsites of encephalomalacia involving the left frontal and left temporal lobe.Ventricles are normal in caliber. Similar confluent periventricular white matter hypoattenuation. The calvarium and extra calvarial soft tissues are unremarkable.Paranasal sinuses and mastoid air cells are clear. IMPRESSION Petechial blood products in the site of now subacute left frontalinfarction. No masslike hemorrhage. Thank you for letting us participate in the care of this patient. If youare a health care provider and have any questions regarding this report,please contact the number below. For patients who have questions please contactthe health cattle care worker that requested your imaging first. Karthikeyan Rich MD IMG CT ORDERABL ES documented in this encounter Visit Diagnoses Not on filedocumented in this encounter Care Teams Seasonal Warehouse Associate Relationship Specialty Start Date End Date Bobby Das MD [address] [place] [address] [place] [address] PCP - General 10/02/10 documented as of this encounter
--- OUTSIDE RECORDS SUMMARY | 2024-09-17 01:28 | XMS_ITS | Encounter Summary ---
Author Organization [facility] Address [address] [place] [address] Care Team Providers Care Program Engineer Name Role Phone Bobby Das MD Primary Care Provider [phone] Reason for Visit * Reason Onset Date Comments Follow-up 01/12/2018 Encounter Details Date Type Department Care Team (Late st Contact Info) Description 01/12/2018 Telephone [facility] Radiation Oncology - [facility] [address], [place] [phone] Isela Law, RN Follow-up Social History Tobacco Use Types Packs/Day Years Used Date Smoking Tobacco: Every Day Smokeless Tobacco: Never Sex and Gender Information Value Date Recorded Sex Assigned at Not on file Gender Identity Not on file Sexual Orientation Not on file documented as of this encounter Miscellaneous Notes * Telephone Encounter - Isela Law RN - 01/12/2018 1528 EST This is a planned post procedure call. Koko is not having any issues with urination post Fiducialmarkers being placed in his prostate. He has had no hematuria. He will FU as planned with Dr. Gutierrez on 01/16/18 for his Simulation. He will start RT on 02/02/18. documented in this encounter Plan of Treatment Not on file documented as of this encounter Visit Diagnoses Not on filedocumented in this encounter Care Teams Program Engineer Relationship Specialty Start Date End Date Bobby Das MD [address] [place] [address],[address] [place] [address] PCP - General 07/06/15 documented as of this encounter
--- OUTSIDE RECORDS SUMMARY | 2024-09-17 01:28 | XMS_ITS | Encounter Summary ---
Author Organization [facility] Address [address] [place] [address] Care Team Providers Care Director Of Fundraising Name Role Phone Bobby Das MD Primary Care Provider [phone] Reason for Visit * Reason Comments Cancer Encounter Details Date Type Department Care Team (Late st Contact Info) Description 02/27/2018 Radiation Therapy Visit [facility] Radiation Oncology - Main [place] [address] [place] [address] Janae Gaitan, RN [address] [place] [address] Malignant neoplasm of prostate (HCC-CMS) (Primary Dx) Social History Tobacco Use Types Packs/Day Years Used Date Smoking Tobacco: Every Day Smokeless Tobacco: Never Sex and Gender Information Value Date Recorded Sex Assigned at Not on file Gender Identity Not on file Sexual Orientation Not on file documented as of this encounter Progress Notes * Janae Gaitan RN - 02/27/2018 1220 EDT On Treatment Visit Assessment: Koko Zamora is currently receiving radiation therapy treatment and is being seen today for his weekly on treatment visit. The encounter diagnosis was Malignant neoplasm of prostate (HCC-CMS). Assessment: Assessment Completed By: Janae Gaitan RN [...] rn next week. he also knows to call if he should see blood clots. Nutrition: have [...] prostate documented in this encounter Care Teams Director Of Fundraising Relationship Specialty Start Date End Date Bobby Das MD [address] [place] [address],[address] [place] [address] PCP - General 07/06/15 documented as of this encounter
--- OUTSIDE RECORDS SUMMARY | 2024-09-17 01:28 | XMS_ITS | Encounter Summary ---
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, unspecified blood vessel laterality Flavia Zaman MD [address] [place] [address] [facility] Neurology [address] [place] [id number] Referral ID Status Reason Start Date Expiration Date V isits Requested Visits Authorized [id number] Closed Consult, Test & Treat 11/26/2023 11/25/2024 1 1 Encounter Details Date Type Department Care Team (Latest Contact Info) Description 11/26/2023 Transcribe Orders eD Incoming Referrals [phone] Flavia Zaman MD [address] [place] [address] 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
--- OUTSIDE RECORDS SUMMARY | 2024-09-17 01:28 | XMS_ITS | Encounter Summary ---
Author Organization [facility] Address [address] [place] [address] Care Team Providers Care Health Promotion Educator Name Role Phone Bobby Das MD Primary Care Provider [phone] Encounter Details Date Type Department Care Team (Late st Contact Info) Description 11/20/2017 Results Only Imaging [facility] [phone] Unknown, Provider, Social History Tobacco Use Types Packs/Day Years Used Date Smoking Tobacco: Every Day Smokeless Tobacco: Never Sex and Gender Information Value Date Recorded Sex Assigned at Not on file Gender Identity Not on file Sexual Orientation Not on file documented as of this encounter Plan of Treatment Pending Results Name Type Priority Associated Diagnoses Date /Time OUTSIDE IMAGES - NM OTHER Imaging 11/20/2017 14:15 EST documented as of this encounter Visit Diagnoses Not on filedocumented in this encounter Care Teams Health Promotion Educator Relationship Specialty Start Date End Date Bobby Das MD [address] [place] [address],[address] [place] [phone] PCP - General 07/06/15 documented as of this encounter
--- OUTSIDE RECORDS SUMMARY | 2024-09-17 01:28 | XMS_ITS | Encounter Summary ---
Author Organization [facility] Address [address] [place] [address] Care Team Providers Care Senior Accountant Name Role Phone Bobby Das MD Primary Care Provider Reason for Visit * Reason Comments Cancer Encounter Details Date Type Department Care Team (Latest Contact Info) Description 01/08/2018 Radiation Therapy Visit [facility] Radiation Oncology - Main [address] [address] Isela Law, RN Malignant neoplasm of prostate (HCC-CMS) (Primary Dx) Social History Tobacco Use Types Packs/Day Years Used Date Smoking Tobacco: Every Day Smokeless Tobacco: Never Sex and Gender Information Value Date Recorded Sex Assigned at Not on file Gender Identity Not on file Sexual Orientation Not on file documented as of this encounter Progress Notes * Isela Law RN - 01/08/2018 1326 EST Koko Zamora is currently receiving radiation therapy treatment and is being seen today for his weekly on treatment visit. There were no encounter diagnoses. Assessment: Assessment Completed By: Isela Law RN (01/08/18 8893) Patient Education Topic: Method: Handout and Verbal [...] and get free services/meds from afar. Referrals terrazzo worker: Yes (Shadi will meet with Santhosh Cosby KAYAK MAKER next week to review the DT and supportiveservices. ) Services: [facility] [place]: No Other: Subjective Note: General: Koko and his Ursula are here for the treatment teaching session post Fiducials beingplaced. 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 They are concerned that he might be incapacitated with fatigue and side effects while on treatment. They had [facility] is on treatment. We reviewed s/e today and I advised Tung and Ursula that I believe his s/e will be tolerable and that he should be able to continue working. Nutrition: Reg diet Pain: None Numeric Pain Level (Scale 1-10): 0 Narcotic: No Psychosocial: Excellant support Ursula. Many friends, enjoys his B & [employer] business, very social gentleman. Review of Systems: h/o mitral valve repair (2000), otherwise no issues or concerns. Physical Exam: General: Generally feels well, on ADT with only a couple of hot flashes but not bothersome. No GI/ c/o. General Appearance: Appears comfortable, no acute distress [...] density treatment options should be considered for menwho have a FRAX evaluated 10 year probability [...] documented in this encounter Care Teams Senior Accountant Relationship Specialty Start Date End Date Bobby Das MD [address] [place] [address] ,[address] [place] [phone] PCP - General 07/06/15 documented as of this encounter
--- OUTSIDE RECORDS SUMMARY | 2024-09-17 01:28 | XMS_ITS | Encounter Summary ---
Author Organization [facility] Address [facility] [address] Care Team Providers Care Installment Dealer Name Role Phone Bobby Das MD Primary Care Provider [phone] Encounter Details Date Type Department Care Team (Late st Contact Info) Description 12/04/2023 Orders Only Cardiology at [address] [address] Christian Figueroa MD [facility] [place] [address] Atrial fibrillation, unspecified type Social History Tobacco Use Types Packs/Day Years Used Date Smoking Tobacco: Former Cigarettes 0.5 50 0 05/15/1972 - 05/15/2022 Smokeless Tobacco: Never Alcohol Use Standard Drinks/Week Comments Not Currently 42 (1 standard drink = 0.6 oz pure alcohol) Last alcohol use in May 2022 [facility] Utilities Answer Date Recorded In the past 12 months has [employer] electric, gas, oil, or water [employer] threatened to shut off services in your [...] place to sleep or slept in a fci (including now)? No 11/08/2023 DH IPV Inpatient [...] as of this encounter Visit Diagnoses Diagnosis Atrial fibrillation, unspecified type documented in this encounter Care Teams Installment Dealer Relationship Specialty Start Date End Date Bobby Das MD [address] [place] [address] [place] [address] PCP - General 10/02/10 documented as of this encounter
--- OUTSIDE RECORDS SUMMARY | 2024-09-17 01:28 | XMS_ITS | Encounter Summary ---
Author Organization [facility] Address [address] [place] [address] Care Team Providers Care Biomass Power Plant Manager Name Role Phone Bobby Das MD Primary Care Provider [phone] Reason for Visit * Reason Comments Prostate Cancer Encounter Details Date Type Department Care Team (Late st Contact Info) Description 11/19/2017 11:00 EST Office Visit [facility] Radiation Oncology - [address] [phone] Aries Gutierrez MD [address] [place] [address], [address] [place] [address] Malignant neoplasm of prostate (HCC-CMS) (Primary Dx) Discharge Disposition: Auto Discharge Social History Tobacco Use Types Packs/Day Years Used Date Smoking Tobacco: Every Day Smokeless Tobacco: Never Tobacco Cessation:Counseling Given: Yes Sex and Gender Information Value Date Recorded [...] Notes * Delores Gutierrez III, MD - 11/19/2017 1100 EST Division of Radiation Oncology CONSULT NOTE DATE OF SERVICE: 11/19/2017 This patient is being seen as a consultation from Dr. José. Primary Site, Histopathology and Stage: [id number], PSA 12.8 Winifred score 3+4 = 7 adenocarcinoma of the [...] score 3+3 disease at the left base, Casey score 3+4 disease at the left apex, he had ANDREINA/pin in another core biopsy from the left apex. His pathology was reviewed here at [facility] which was confirmatory. A bone scan is planned for tomorrow. He states that he has had no recent change in his baseline urinary symptoms, his IPSS is 15. He does have erectile dysfunction. He has no localizing bone [...] Social History: He is and lives in [facility]. 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 Smoking status: Current [...] rhythm. Abdomen: Soft nontender with normal active bowel sounds. No palpable masses organomegaly. Extremities: Without edema. [...] unfavorable intermediate risk disease. We reviewed the available data regarding potential risks of extracapsular extension and shirin involvement of disease, he understands my recommendations are related to these risks. I described the potential role of definitive external beam radiation therapy utilizing intensity modulated and image guided techniques.A standard course of treatment lasting approximately 8 weeks, with potential side effects including, in the short term, [...] him the more recent data based on the [facility] trial that reveals it 5 years individuals treated with a 4 week rather than an 8 one half weeks' course have equivalent results with respect to disease control and toxicities. The limitations of five-year follow-up in the setting of prostate cancer were described. I told him that it isvery reasonable to proceed either with 4 or 8-1/2 weeks' depending on his preference, travel distance or other factors. The potential role of prostate seed brachytherapy [...] including changing body fat distribution, loss of musclemass, osteoporosis as well as the less likely but serious complications associated with androgen deprivation including risk of heart attack and stroke were also discussed. I told him the relative advantages of androgen deprivation must be weighed against the potential risks and is individualized based on known risk factors of tumor progression. I told [...] bone scan which will be done at [facility] tomorrow. Once that result is available I will be in touch with Mr. Zamora to discuss next steps. Most likely we would initiate a brief (4 month) course of androgen deprivation and have him return for fiducial marker placement and treatment planning simulation with appropriate timing to initiate his radiation 2 monthsafter his first injection. I spent a total of 75 minutes in face to face time with this patient today and 60 minutes of that time was spent in counseling and coordination of care as described in the progress note. Delores Gutierrez III, MD This note has been prepared with voice recognition software. Please excuse electrical discharge machine operator errors documented in this encounter Plan of [...] tablet Take 40 mg by mouth daily. ascorbic acid, vitamin C, (VITAMIN C) 500 mg tablet Take 500 mg by mouth daily. 02/03/2018 added in this encounter Care Teams Biomass Power Plant Manager Relationship Specialty Start Date End Date Bobby Das MD [address] [place] [address],[address] [place] [phone] PCP - General 07/06/15 documented as of this encounter
--- OUTSIDE RECORDS SUMMARY | 2024-09-17 01:28 | XMS_ITS | Encounter Summary ---
Author Organization [facility] Address [address] [place] [address] Care Team Providers Care Customs And Border Protection Inspector Name Role Phone Bobby Das MD Primary Care Provider [phone] Reason for Visit * Reason Onset Date Comments Follow-up 03/06/2018 Encounter Details Date Type Department Care Team (Late st Contact Info) Description 03/06/2018 Telephone [facility] Radiation Oncology - [facility] [address] [place] [address] Rupal Rojas, RN [address] [place] [address] Follow-up Social History Tobacco Use Types Packs/Day Years Used Date Smoking Tobacco: Every Day Smokeless Tobacco: Never Sex and Gender Information Value Date Recorded Sex Assigned at Not on file Gender Identity Not on file Sexual Orientation Not on file documented as of this encounter Miscellaneous Notes * Telephone Encounter - Rupal Rojas RN - 03/06/2018 3199 EDT I called and spoke with Koko for F/U after completing radiation therapy 1 week ago. He continues with urinary urgency and frequency despite being on Flomax. He also endorses nocturia of 5-6 episodes per night. He reports drinking a gal of water daily, I asked him to slow down on oral hydration inthe early evening or late afternoon to see if this helps reduce the nocturia episodes. He feels as t vira he is not completely emptying his bowels, [...] on filedocumented in this encounter Care Teams Customs And Border Protection Inspector Relationship Specialty Start Date End Date Bobby Das MD [address] [place] [address],[address] [place] [phone] PCP - General 07/06/15 documented as of this encounter
--- OUTSIDE RECORDS SUMMARY | 2024-09-17 01:28 | XMS_ITS | Encounter Summary ---
Author Organization [facility] Address [address] [place] [address] Care Team Providers Care Cloth Picker Name Role Phone Bobby Das MD Primary Care Provider Reason for Visit * Reason Onset Date Comments Prostate Cancer 11/20/2017 Encounter Details Date Type Department Care Team (Late st Contact Info) Description 11/20/2017 Telephone [facility] Radiation Oncology - [address] [phone] Aries Gutierrez MD [address] [facility], [address] [place] [address] Prostate Cancer Social History Tobacco Use Types Packs/Day Years Used Date Smoking Tobacco: Every Day Smokeless Tobacco: Never Sex and Gender Information Value Date Recorded Sex Assigned at Not on file Gender Identity Not on file Sexual Orientation Not on file documented as of this encounter Miscellaneous Notes * Telephone Encounter - Delores Gutierrez III, MD - 11/20/2017 1712 EST RADIATION ONCOLOGY I spoke with Mr. Zamora by phone today. His bone scan done at [facility] earlier today reveals no evidence of metastatic disease. He is eager to start therapy. I discussed his care with Dr. José. We will coordinate initiation of androgen deprivation as soon as practical. He will return for fiducial marker placement in approximately 6 weeks, anticipate we will start his treatment approximately 2 months after his first injection. Sj Gutierrez MD Radiation Oncology [phone] (office) [phone] (pager) This note has been prepared with voice recognition software. Please excuse flight data technician errors. documented in this encounter Plan of Treatment Not on file documented as of this encounter Visit Diagnoses Diagnosis Malignant neoplasm of prostate (HCC-CMS)- Primary Malignant neoplasm of prostate documented in this encounter Care Teams Cloth Picker Relationship Specialty Start Date End Date Bobby Das MD [address] [place] [address],[address] [place] [phone] PCP - General 07/06/15 documented as of this encounter
--- OUTSIDE RECORDS SUMMARY | 2024-09-17 01:28 | XMS_ITS | Encounter Summary ---
Author Organization [facility] Address [address] [place] [address] Care Team Providers Care Data Support Analyst Name Role Phone Unknown, Provider Primary Care Provider Unava ilable Encounter Details Date Type Department Care Team (Latest Contact Info) Description 07/03/2015 12:54 EDT - 07/03/2015 23:59 EDT Hospital Encounter [address] [address] Unknown, ProviderMD Discharge Disposition: Home or Self Care Social History Tobacco Use Types Packs/Day Years Used Date Smoking Tobacco: Never Assessed Sex and Gender Information Value Date Recorded [...] filedocumented in this encounter Care Teams Data Support Analyst Relationship Specialty Start Date End Date Unknown, ProviderMD PCP - General 07/03/15 07/05/15 documented as of this encounter
--- OUTSIDE RECORDS SUMMARY | 2024-09-17 01:28 | XMS_ITS | Encounter Summary ---
Author Organization [facility] Address [address] [place] [address] Care Team Providers Care Animal Shelter Worker Name Role Phone Bobby Das MD Primary Care Provider [phone] Reason for Visit * Reason Onset Date Comments Cancer 02/16/2018 Encounter Details Date Type Department Care Team (Late st Contact Info) Description 02/16/2018 Orders Only [facility] Radiation Oncology - [facility] [address] [place], [place] [address] Isela Law, RN Malignant neoplasm of prostate (HCC-CMS) (Primary Dx); Androgen deprivation therapy Social History Tobacco Use Types Packs/Day Years [...] prostate (HCC-CMS)- Primary Malignant neoplasm of prostate Androgen deprivation therapy Encounter for therapeutic drug monitoring documented in this encounter Care Teams Animal Shelter Worker Relationship Specialty Start Date End Date Bobby Das MD [address] [place] [address],[address] [place] [address] PCP - General 07/06/15 documented as of this encounter
--- OUTSIDE RECORDS SUMMARY | 2024-09-17 01:28 | XMS_ITS | Encounter Summary ---
Author Organization [facility] [place] [address] Care Team Providers Care Aircraft Load Controller Name Role Phone Bobby Das MD Primary Care Provider [phone] Encounter Details Date Type Department Care Team (Late st Contact Info) Description 11/23/2023 3:35 AM EST Telehealth [place] [id number] Telehealth, Neurology None Social History Tobacco Use Types Packs/Day Years Used Date Smoking Tobacco: Former Cigarettes 0.5 50 0 05/15/1972 - 05/15/2022 Smokeless Tobacco: Never Alcohol Use Standard Drinks/Week Comments Not Currently 42 (1 standard drink = 0.6 oz pure alcohol) Last alcohol use in May 2022 [facility] Utilities Answer Date Recorded In the past 12 months has [employer], oil, or water [employer] threatened to shut off services in your [...] place to sleep or slept in a mcc (including now)? No 11/08/2023 DH IPV Inpatient [...] filedocumented in this encounter Care Teams Aircraft Load Controller Relationship Specialty Start Date End Date Bobby Das MD [address] [place] [address] [place] [phone] PCP - General 10/02/10 documented as of this encounter
--- OUTSIDE RECORDS SUMMARY | 2024-09-17 01:28 | XMS_ITS | Encounter Summary ---
Author Organization [facility] Address [address] [place] [address] Care Team Providers Care Clinical Reimbursement Specialist Name Role Phone Bobby Das MD Primary Care Provider [phone] Encounter Details Date Type Department Care Team (Late st Contact Info) Description 02/08/2018 8:24 EDT - 02/08/2018 23:59 EDT Hospital Encounter [facility] Radiation Oncology - [address] [phone] Aries Gutierrez MD [address] [facility], [address] [place] [address] Discharge Disposition: Home or Self [...] tablet Take 40 mg by mouth daily. documented as of this encounter Discharge Disposition Disposition Code Departure Means Destination Home or Self Snf documented in this encounter Plan of Treatment Not on file documented as of this encounter Visit Diagnoses Not on filedocumented in this encounter Care Teams Clinical Reimbursement Specialist Relationship Specialty Start Date End Date Bobby Das MD [address] [place] [address],[address] [place] [address] PCP - General 07/06/15 documented as of this encounter
--- OUTSIDE RECORDS SUMMARY | 2024-09-17 01:28 | XMS_ITS | Encounter Summary ---
Author Organization [facility] Address [address] [place] [address] Care Team Providers Care Clinical Care Manager Name Role Phone Bobby Das MD Primary Care Provider [phone] Reason for Visit * Reason Onset Date Comments Diagnostic Imaging Report 11/25/2017 Encounter Details Date Type Department Care Team (Late st Contact Info) Description 11/25/2017 Telephone [facility] Radiation Oncology - [facility] [address] [place] [address] Lynn Vargas RN [address] [place] [address] Diagnostic Imaging Report Social History Tobacco Use Types Packs/Day Years Used Date Smoking Tobacco: Every Day Smokeless Tobacco: Never Sex and Gender Information Value Date Recorded Sex Assigned at Not on file Gender Identity Not on file Sexual Orientation Not on file documented as of this encounter Miscellaneous Notes * Telephone Encounter - Lynn Vargas RN - [...] need any further imaging for his current diagnosis.Dr. Gutierrez states that he has discussed this with Koko. Dr. Das's office is aware that Dr. Gutierrez will not be ordering any additional imaging. documented in this encounter Plan of Treatment Not on file documented as of this encounter Visit Diagnoses Not on filedocumented in this encounter Care Teams Clinical Care Manager Relationship Specialty Start Date End Date Bobby Das MD [address] [place] [address],[address] [place] [phone] PCP - General 07/06/15 documented as of this encounter
--- OUTSIDE RECORDS SUMMARY | 2024-09-17 01:28 | XMS_ITS | Encounter Summary ---
Author Organization [facility] Address [address] [place] [address] Care Team Providers Care Delicatessen Goods Stock Clerk Name Role Phone Bobby Das MD Primary Care Provider [phone] Reason for Visit * Reason Comments Cancer Encounter Details Date Type Department Care Team (Latest Contact Info) Description 02/13/2018 Radiation Therapy Visit [facility] Radiation Oncology - Main [address] [address] Isela Law, DION Malignant neoplasm of prostate (HCC-CMS) (Primary Dx) Social History Tobacco Use Types Packs/Day Years Used Date Smoking Tobacco: Every Day Smokeless Tobacco: Never Sex and Gender Information Value Date Recorded Sex Assigned at Not on file Gender Identity Not on file Sexual Orientation Not on file documented as of this encounter Progress Notes * Isela Law RN - 02/13/2018 1158 EDT On Treatment Visit Assessment: Koko Zamora is currently receiving radiation therapy treatment and is being seen today for his weekly on treatment visit. The encounter diagnosis was Malignant neoplasm of prostate (HCC-CMS). Assessment: Assessment Completed By: Isela Law RN [...] prostate documented in this encounter Care Teams Delicatessen Goods Stock Clerk Relationship Specialty Start Date End Date Bobby Das MD [address] [place] [address],[address] [place] [phone] PCP - General 07/06/15 documented as of this encounter
--- OUTSIDE RECORDS SUMMARY | 2024-09-17 01:28 | XMS_ITS | Encounter Summary ---
Author Organization [facility] Address [address] [place] [address] Care Team Providers Care Conference Center Coordinator Name Role Phone Bobby Das MD Primary Care Provider [phone] Encounter Details Date Type Department Care Team (Late st Contact Info) Description 02/25/2018 Documentation Visit [facility] Radiation Oncology - Main [place] [address] [place] [address] Lynn Vargas, RN [address] [place] [address] Social History Tobacco Use Types Packs/Day Years Used Date Smoking Tobacco: Every Day Smokeless Tobacco: Never Sex and Gender Information Value Date Recorded Sex Assigned at Not on file Gender Identity Not on file Sexual Orientation Not on file documented as of this encounter Progress Notes * Lynn Vargas, RN - 02/25/2018 1333 EDT Koko Zamora requested to be seen today. He is reporting increasing pelvic pressure when sitting on a hard surface and that he didn't have his usual bowel movement this morning. It was explainedto him that pelvic radiation can cause some [...] on filedocumented in this encounter Care Teams Conference Center Coordinator Relationship Specialty Start Date End Date Bobby Das MD [address] [place] [address],[address] [place] [phone] PCP - General 07/06/15 documented as of this encounter
--- OUTSIDE RECORDS SUMMARY | 2024-09-17 01:28 | XMS_ITS ---
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 Overview (11/08/2023): Left BRUCE territory infarct with additional punctate foci of restricted diffusion in the right precentral gyrus, bilateral lateral inferior frontal gyri and left centrum semiovale - etiology likely cardioembolic in setting of afib (off Eliquis in anticipation of Watchman device placement) GI bleed 12/08/2022 Coronary artery disease invo lving [place] coronary artery of [place] heart without angina pectoris 06/13/2022 Overview (06/13/2022): 05/20/22 Cath * Two vessel coronary artery disease (LCX and RCA) * Successful stent insertion of the ostial OM1 lesion * Successful angioplasty of the mid LCX lesion * See Dual Antiplatelet (DAPT) Recommendations above * COnsider PCI of distal RCA if indicated. Assessment & Plan (09/05/2022 2:27 PM EDT): His coronary disease is stable. No angina. I am not going to be making any changes. For now given the recent revascularization I feel obligated to continue the clopidogrel. Assessment & Plan (06/13/2022 10:23 AM EDT): His coronary disease was always asymptomatic. He [...] disease. HFrEF (heart failure with reduced ejection fract ion) 06/13/2022 Overview (06/13/2022): 05/16/22 echo Left ventricle is mildly dilated. Left ventricular systolic function is severely reduced. The left ventricular ejection fraction is 28% by Gaxiola's biplane. Right ventricular systolic function is mildly decreased. There is moderate aortic stenosis. The mean gradient across the aortic valve is 13 mmHg. JUVENAL 1.2 cm2 Assessment & Plan (09/05/2022 2:26 PM EDT): Treatment of his LV dysfunction has been difficult. He has not tolerated very much GDMT including an ARB or a PCSK9 inhibitor. He is on maximally tolerated beta-norma. With this his ejection remains approximately 30%. This is an indication for an ICD. His QRS duration most recently was 124 ms. Given his class II-III symptoms and low ejection fraction this is a borderline indication for WINDSCREEN FITTER-D. I am going to set up an appointment with electrophysiology to discuss future device therapy. In the interim I do not have much more medical therapy to offer. Assessment & Plan (06/13/2022 10:22 AM EDT): He is still symptomatic with exertional dyspnea [...] therapy possibly including AV node ablation and WINDSCREEN FITTER-D. Permanent atrial fibrillation 06/13/2022 Assessment & Plan (09/05/2022 2:27 PM EDT): His atrial fibrillation is appropriately treated with a beta-norma and oral anticoagulation. If he continues to have significant GI bleeding I would consider referral to structural heart team for a watchman device. He is very high risk for thromboembolic complications. Assessment & Plan (06/13/2022 10:23 AM EDT): He is on appropriate oral anticoagulation with rivaroxaban. He needs better rate control. I have added digoxin. Ultimately if I cannot control his rate and his ejection fraction remains low he will be referred to EP for consideration of AV node ablation and WINDSCREEN FITTER-D Limb ischemia 05/15/2022 History of basal cell carcinoma 05/31/2014 Basal cell carcinoma 03/29/2014 Verruca vulgaris 03/29/2014 AK (actinic keratosis) 03/29/2014 GIB (gastrointestinal bleeding) 06/28/2011 Overview (08/09/2012): Secondary to 3-4 ASA/day, required admission and blood transfusion MVP (mitral valve prolapse) s/p repair 1 Overview (08/09/2012): Surgery done at [facility] in 2000 Hypertriglyceridemia 06/28/2011 Adhesive capsulitis of L shoulder 06/28/2011 Alcohol use 06/28/2011 Current Oncology Plans No current plan information found. Past Plans No past plan information found. Radiation Treatments * No radiation treatments are documented for this patient in [facility]. Treatments may have been administered in another system. Lifetime Dose Tracking * Chemical Lifetime Dose Automatic Entry Manual Entr y DLP (Dose Length Product) 1,085 mGy-cm 1,085 mGy-cm 0 mGy-cm CTDI (CT Dose Index) Min 0.79 mGy 0.79 mGy 0 m Gy CTDI (CT Dose Index) Max 9.35 mGy 9.35 mGy 0 m Gy
--- OUTSIDE RECORDS SUMMARY | 2024-09-17 01:28 | XMS_ITS | Encounter Summary ---
Author Organization [facility] Address [address] [place] [address] Care Team Providers Care Radiology Asst Name Role Phone Bobby Das MD Primary Care Provider [phone] Encounter Details Date Type Department Care Team (Late st Contact Info) Description 10/29/2017 Results Only [facility] Urology - [address] [address] Chino José MD [address] [place] [address], [address] [place] [phone] Social History Tobacco Use Types Packs/Day Years Used Date Smoking Tobacco: Never Assessed Sex and Gender Information Value Date Recorded Sex Assigned at Not on file Gender Identity Not on file Sexual Orientation Not on file documented as of this encounter Plan of Treatment Not on file documented as of this encounter Procedures Procedure Name Priority Date/Time Associated Diagnosis Comments SURGICAL PATHOLOGY Routine 10/29/2017 8:21 EST documented in this encounter Results * SURGICAL PATHOLOGY (10/29/2017 8:21 EST) Pathology Report: SURGICAL PATHOLOGY REPORT Reports generated via electronic interface contain original data; however they are lacking the format of the original report. Caution should be taken when reading/interpreting unformatted reports. Name: ? ETTA BAH ? Accession #: ? [id number] ? : ? 1940 (Age: 77) ??M ? Collect Date: ? 10/29/2017 ? Location: ? [facility] ? Receive Date: ? 10/30/2017 ? Provider: CHINO JOSÉ MD Copy to: ? Final Pathologic Diagnosis: SUMMARY OF CORES A (right base) (3) ?No tumor B (right mid) (4) ?No tumor C (right apex) (4) ?No tumor D (left base) (2) ?3+3 ? 4% ?1/2 [3+3, 10%; no tumor] ? PN E (left mid) (5) ? No tumor F (left apex) (2) ?3+4 (30% 4) ?30% ?1/2 [3+4(30% 4), 54% PIN; ANDREINA PIN] ?PN (PIN: ? perineural invasion) (PIN: ?high-grade prostatic intraepithelial neoplasia) (ANDREINA: ? atypical small acinar proliferation) Olton score can be grouped and range from Prognostic Grade Group I (most favorable) to Prognostic Grade Group V (least favorable). Olton score less than or equal to 6: Prognostic Grade Group I Olton score 3+4=7: Prognostic Grade Group II Olton score 4+3=7: Prognostic Grade Group III Olton score 8: Prognostic Grade Group IV Olton score 9-10: Prognostic Grade Group V References for Prognostic Grade Groups: J Clin Hercules 2012;30:0680-8313 Joey CASTAÑEDA. The Olton Grading System (A Complete Guide for Pathologists and Clinicians), LWW, 2013 Serg PM, Sumaya PW, Edward AW, Joey CASTAÑEDA. Prognostic Winifred Grade Grouping: Data based on the modified Winifred scoring system. BJU Int 2013;111:753-760 A. PROSTATE, RIGHT BASE, BIOPSY (3): - Prostatic tissue (9.9 mm) with focal atrophy. - Prostatic tissue (8.0 mm) with focal atrophy and focal chronic inflammation. - Prostatic tissue (7.5 mm) with no specific histopathologic features. - Small portion of benign colorectal mucosa with no specific histopathologic features. B. PROSTATE, RIGHT MID, BIOPSY (4): - Prostatic tissue (11.0 mm) with focal atrophy and focal chronic inflammation. - Prostatic tissue (9.7 mm) with focal atrophy and focal chronic inflammation. - 2 portions of colorectal mucosa (2.0 mm and 1.5 mm) with no specific histopathologic features. C. PROSTATE, RIGHT APEX, BIOPSY (4): - Prostatic tissue (6.0 mm) with focal atrophy. - Prostatic tissue (4.5 mm) with focal atrophy. - Prostatic tissue (3.8 mm) with no specific histopathologic features. - Prostatic tissue (3.0 mm) with focal atrophy. - Small portion of colorectal mucosa with no specific histopathologic features. D. 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 ? - Global tumor Olton score: ?3 + 3 = 6 ? - Prognostic Grade Group: ?I (3+3) ? - Percent involvement: ? 4% of entire prostatic tissue ? - Perineural invasion: ? Present ??- Core #1 (12.5 mm): ? - Prostatic adenocarcinoma (1 contiguous tumor focus) ? - ??Histologic grade: ?3 + 3 ?- ??Primary Olton pattern: ? Grade 3 ?- ??Secondary Winifred pattern: ? Grade 3 ?- ??Total Winifred score: ?6 ? - ??Tumor contiguity: ? Contiguous ? - ??Linear millimeters of prostatic tissue: ? 12.5 mm ? - ??Linear millimeters of carcinoma: ?1.2 mm ? - ??Proportion of prostatic tissue involved by tumor: ?10% ? - ??Perineural invasion: ? Present ??- Core #2 (21.2 mm): ? - Prostatic tissue with no specific histopathologic features. E. PROSTATE, LEFT MID, BIOPSY (5): - Prostatic tissue (8.8 mm, 7.2 mm, 6.8 mm, 5.6 mm) with atrophy. - Colorectal mucosa and fibromuscular tissue (2.5 mm) with no specific histopathologic features. F. 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 ? - Global tumor Winifred score: ?3 + 4 = 7 (30% pattern 4) ? - Prognostic Grade Group: ?II (3+4) ? - Percent involvement: ? 30% of entire prostatic tissue ? - Perineural invasion: ? Present - Small focus of atypical small acinar proliferation (ANDREINA) in the other core. - High-grade prostatic intraepithelial neoplasia (PIN) ??- Core #1 (15.2 mm): ? - Prostatic adenocarcinoma (1 contiguous tumor focus) ? - ??Histologic grade: ?3 + 4 (30% pattern 4) ?- ??Primary Olton pattern: ? Grade 3 ?- ??Secondary Olton pattern: ? Grade 4 (fused glands, cribriform) ?- ??Total Winifred score: ?7 ? - ??Tumor contiguity: ? Contiguous ? - ??Linear millimeters of prostatic tissue: ? 15.2 mm ? - ??Linear millimeters of carcinoma: ?8.1 mm ? - ??Proportion of prostatic tissue involved by tumor: ?54% ? - ??Perineural invasion: ? Present ? - ??High-grade prostatic intraepithelial neoplasia (PIN): ?Present (cribriform pattern) ??- Core #2 (12.0 mm): ? - Prostatic tissue with: ?- ??Small focus of atypical small acinar proliferation (ANDREINA) ?- ??High-grade prostatic intraepithelial neoplasia (PIN) Comment: This case has been presented and reviewed at the intradepartmental consultation conference for confirmation of malignancy. Document reviewed and electronically signed by: Torrey Hamilton MD Report ??Date: 11/01/2017 12:38 By the signature above, the attending physician certifies that he/she has personally conducted a gross and/or microscopic examination of the described specimens and rendered or confirmed the above diagnosis. Specimen(s) Received: A. ??Right base B. ??Right mid C. ??Right apex D. ??Left base E. ??Left mid F. ??Left apex Clinical History: Elevated PSA Gross Description: A. ?Received in formalin labelled with proper patient identification (initials F, R) and Rt base are two de leon-white tissue cores (1.1 cm and 1.0 cm in length, and each 0.1 cm in diameter). Entirely submitted in A1. B. ?Received in formalin labelled with proper patient identification (initials F, R) and Rt mid are two de leon-white tissue cores (1.5 cm and 1.2 cm in length, and each 0.1 cm in diameter). Entirely submitted in B1. C. ?Received in formalin labelled with proper patient identification (initials F, R) and Rt apex is a single de leon-white tissue core (1.4 cm in length x 0.1 cm in diameter). Submitted intact in C1. D. ?Received in formalin labelled with proper patient identification (initials F, R) and Lt base are two de leon-white tissue cores (2.1 cm and 1.4 cm in length, and each 0.1 cm in diameter). Entirely submitted in D1. E. ?Received in formalin labelled with proper patient identification (initials F, R) and Lt mid are two de leon-white tissue cores (1.4 cm and 1.3 cm in length, and each 0.1 cm in diameter). Entirely submitted in E1. F. ?Received in formalin labelled with proper patient identification (initials F, R) and Lt apex are two de leon-white tissue cores (1.7 cm and 1.4 cm in length, and each 0.1 cm in diameter). Entirely submitted in F1. Mihrab Ali 10/30/2017 9:13 AM End of Report [facility] 10/29/2017 8:21 EST 10/30/2017 8:21 EST Chino José MD PATHOLOGY ORDERABLES Performing Organization Address City/State/[facility] [[email or web address]] Co de Phone Number [facility] [address] [place] [address] documented in this encounter Visit Diagnoses Not on filedocumented in this encounter Care Teams Radiology Asst Relationship Specialty Start Date End Date Bobby Das MD [address] [place] [address] ,[address] [place] [phone] PCP - General 07/06/15 documented as of this encounter
--- OUTSIDE RECORDS SUMMARY | 2024-09-17 01:28 | XMS_ITS | Clinical Summary ---
Author Organization [facility] Address [facility] [place] [address] Care Team Providers Care Farm Hand Name Role Phone Bobby Das MD Primary Care Provider [phone] Allergies Active Allergy Reactions Criticality Noted Date Comments Aspirin Other (See Comments) 06/28/2011 GI bleed Medications Medication Sig Dispensed Refills Start Date End Date Status MULTIVITAMIN (MULTIPLE VITAMIN ORAL) Take 1 tablet by mouth daily. Active CRESTOR 40 mg Tablet Take 40 mg by mouth daily. 09/13/2016 Active carboxymethylcellu lose (REFRESH PLUS) 0.5 % Dropperette Apply to eye 3 times daily as needed. Active tamsulosin (FLOMAX) 0.4 mg Capsule Take 0.4 mg by mouth daily. Active fluticasone propionate (FLONASE) 50 mcg/actuation Pyrites, Suspension 1 spray by Each Nare route daily as needed. 04/12/2021 Active fluorouraciL (EFUDEX) 5 % Cream daily. 04/12/2021 Active apixaban (Eliquis) 2.5 mg Tablet Take 1 tablet by mouth 2 times daily. 60 tablet 3 12/12/2022 Active tretinoin (RETIN-A) 0.025 % Cream Apply topically nightly. 45 g 07/28/2023 Active metFORMIN XR (Glucophage XR) 500 mg ER 24 hr tablet Take 1 tablet by mouth 2 times daily. 11/12/2023 Active Lantus Solostar U-100 Insulin 100 unit/mL (3 mL) penIndications:typ e 2 diabetes mellitus Inject 10 Units subcutaneously daily. Indications: type 2 diabetes mellitus 11/12/2023 Active insulin needles, disposable, 32 gauge x 5/32 NeedleIndications: diabetes mellitus Inject 1 each subcutaneously daily. Indications: diabetes 11/12/2023 Active insulin glargine-yfgn (Semglee) 100 unit/mL Solution Inject 10 Units subcutaneously daily. 11/12/2023 Active insulin lispro (HumaLOG) 100 unit/mL Solution Inject 0-8 Units subcutaneously 3 times daily (with meals). 11/12/2023 Active insulin lispro (HumaLOG) 100 unit/mL Solution Inject 1-4 Units subcutaneously every 4 hours. 11/12/2023 Active melatonin 3 mg tablet Take 1 tablet by mouth nightly. 11/12/2023 Active metoproloL tartrate (Lopressor) 25 mg tablet Take 0.5 tablets by mouth 2 times daily. 11/12/2023 Active pantoprazole EC (Protonix) [address] tablet Take 1 tablet by mouth 2 times daily. 11/12/2023 Active traZODone (Desyrel) 50 mg tablet Take 1 tablet by mouth nightly as needed for Sleep (if melatonin ineffective). 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 I am going to set up an [...] therapy possibly including AV node ablation and TNT POWDER WORKER-D. Permanent atrial fibrillation 06/13/2022 Assessment & Plan [...] for consideration of AV node ablation and TNT POWDER WORKER-D Limb ischemia 05/15/2022 History of basal cell carcinoma 05/31/2014 Basal cell carcinoma 03/29/2014 Verruca vulgaris 03/29/2014 AK (actinic keratosis) 03/29/2014 GIB (gastrointestinal bleeding) 06/28/2011 Overview (08/09/2012): Secondary to 3-4 ASA/day, required admission and blood transfusion MVP (mitral valve prolapse) s/p repair 1 Overview (08/09/2012): Surgery done at [facility] in 2000 Hypertriglyceridemia 06/28/2011 Adhesive capsulitis of L shoulder 06/28/2011 Alcohol use 06/28/2011 Social History Tobacco Use Types Packs/Day Years Used Date Smoking Tobacco: Former Cigarettes 0.5 50 0 05/15/1972 - 05/15/2022 Smokeless Tobacco: Never Tobacco Cessation:Counseling Given: Not Answered Alcohol Use Standard Drinks/Week Comments Not Currently 42 (1 standard drink = 0.6 oz pure alcohol) Last alcohol use in May 2022 [facility] Utilities Answer Date Recorded In the past 12 months has [employer], oil, or water [employer] threatened to shut off services in your [...] Sign Reading Time Taken Comments Blood Pressure 119/75 11/12/2023 7:35 AM EST Pulse 104 11/09/2023 12:22 PM EST Temperature 37 ??C (98.6 ??F) 11/12/2023 7:35 AM EST Respiratory Rate 18 11/12/2023 7:35 AM EST Oxygen Saturation 99% 11/12/2023 7:35 AM EST Inhaled Oxygen Concentration - - Weight 69.5 kg (153 lb 3.2 oz) 11/12/2023 5:51 A M EST Height 167.6 cm (5' 6) 11/09/2023 12:24 PM EST Body Mass Index 24.73 11/09/2023 12:24 PM EST Plan of Treatment Health Maintenance Due Date Last Done Comments Tetanus/Diphtheria/Pertussis Vaccines (1 - Tdap) 1961 Zoster vaccine (1 of 2) 1992 Advance Directive 1997 Pneumoccocal Vaccine: 65+ (1 of 1 - PCV) 2007 Covid-19 Vaccine (4 - 2023-2 5 season) 2024 07/31/2023, 01/03/2021, 12/06/2020 Influenza (Flu) vaccine (1 o f 1 - Influenza standard series) 07/11/2024 Colonoscopy Discontinued 12/09/2022, 11/12, 06/25/2022, Additional history exists Colorectal Cancer Screening Discontinued Sigmoidoscopy (10 year) with FIT yearly Discontinued 12/09/2022, 12/09/2022, 06/25/2022, Additional history exists CT Colonography Discontinued FIT DNA Discontinued FIT Discontinued Sigmoidoscopy Discontinued Procedures Procedure Name Priority Date/Time Associated Diagnosis Comments COLONOSCOPY Routine 12/09/2022 11:22 AM EST from Last 3 Months or Most Recently Relevant to Health Maintenance Results * COLONOSCOPY (12/09/2022 11:22 AM EST) COLONOSCOPY [facility] Endoscopy Procedure Date: 12/09/2022 11:22 AM ? Patient Name: Koko Zamora ? Date of : 1940 ? Age: 82 ? Order #: [id number] ? Instrument Name: ? Procedure: ? Colonoscopy Indications: ? Hematochezia Providers: ? Giovani Ponce, Alan August MD Referring : ?Stu Padilla Medicines: ? Propofol per Anesthesia Complications: ? No immediate complications. Procedure: ? Pre-Anesthesia Assessment: ? - Prior to the procedure, a History ? and Physical was performed, and ? patient medications and allergies ? were reviewed. The patient is ? competent. The risks and benefits ? of the procedure and the sedation ? options and risks were discussed ? with the patient. All questions ? were answered and informed consent ? was obtained. Patient ? identification and proposed ? procedure were verified by the ? physician in the pre-procedure ? area. Mental Status Examination: ? alert and oriented. Airway ? Examination: normal oropharyngeal ? airway and neck mobility. ? Respiratory Examination: clear to ? auscultation. CV Examination: ? normal. Prophylactic Antibiotics: ? The patient does not require ? prophylactic antibiotics. Prior ? Anticoagulants: The patient has ? taken no anticoagulant or ? antiplatelet agents. ASA Grade ? Assessment: III - A patient with ? severe systemic disease. After ? reviewing the risks and benefits, ? the patient was deemed in ? satisfactory condition to undergo ? the procedure. The anesthesia plan ? was to use monitored anesthesia ? care (MAC). Immediately prior to ? administration of medications, the ? patient was re-assessed for ? adequacy to receive sedatives. The ? heart rate, respiratory rate, ? oxygen saturations, blood pressure, ? adequacy of pulmonary ventilation, ? and response to care were monitored ? throughout the procedure. The ? physical status of the patient was ? re-assessed after the procedure. ? The procedure, indications, ? benefits, risks and alternatives ? were explained to the patient. ? Specifically discussed were ? potential complications including, ? but not limited to, bleeding, ? perforation, infection, missing a ? cancer, and adverse medication ? reactions. The patient was placed ? in the left lateral decubitus ? position, and a digital rectal exam ? was performed. The patient ? tolerated the procedure well. The ? quality of the bowel preparation ? was good. The procedure, ? indications, benefits, risks and ? alternatives were explained to the ? patient. Specifically discussed ? were potential complications ? including, but not limited to, ? bleeding, perforation, infection, ? missing a cancer, and adverse ? medication reactions. The patient ? was placed in the left lateral ? decubitus position, and a digital ? rectal exam was performed. The ? colonoscope was advanced to the ? cecum ? Findings: ? Multiple polyps were found from the rectum to the ? sigmoid colon. The polyps were small in size. ? Internal hemorrhoids were found during retroflexion. ? Moderate Sedation: ? Not applicable - See Anesthesia documentation Impression: ?- Multiple small polyps from rectum ? to sigmoid colon. ? - Internal hemorrhoids. ? - No specimens collected. Recommendation: ?- [facility]. ? - Resume previous diet. ? - Repeat colonoscopy electively for ? polypectomy when able to safely ? temporarily hole blood thinning ? agents ? Attending Participation: ? I was present and participated during the entire ? procedure, including non-diaz portions. ? Giovani Ponce, 12/09/2022 12:04:17 PM Number of Addenda: 0 Note Initiated On: 12/09/2022 11:22 AM PROVATION 12/09/2022 11:2 2 AM EST Stu Padilla MD GENERAL SURGICAL ORD ERABLES PROVATION from Last 3 Months or Most Recently Relevant to Health Maintenance Advance Directives * Attempt Cardiopulmonary Resuscitation - Inpatient (Latest Code Status on File) Date Activated Date Inactivated Comments 11/06/2023 10:59 AM 11/12/2023 1:15 PM Question Answer Comments Code Status decision made by: Two - Attending Jonas cisjud Content of discussion: will confirm with family on arrival * Attempt Cardiopulmonary Resuscitation - Inpatient Date Activated Date Inactivated Comments 11/06/2023 10:43 AM 11/06/2023 10:59 AM Question Answer Comments Code Status decision made by: Patient * Attempt Cardiopulmonary Resuscitation - Inpatient Date Activated Date Inactivated Comments 12/08/2022 5:25 PM 12/12/2022 6:37 PM Question Answer Comments Code Status decision made by: Patient * Attempt Cardiopulmonary Resuscitation - Inpatient Date Activated Date Inactivated Comments 05/31/2022 7:18 PM 06/02/2022 5:02 PM Question Answer Comments Code Status decision made by: Patient * Attempt Cardiopulmonary Resuscitation - Inpatient Date Activated Date Inactivated Comments 05/15/2022 5:15 PM 05/21/2022 5:49 PM Question Answer Comments Code Status decision made by: Patient Care Teams Farm Hand Relationship Specialty Start Date End Date Bobby Das MD [address] [place] [address] [place] [phone] PCP - General 10/02/10
--- OUTSIDE RECORDS SUMMARY | 2024-09-17 01:28 | XMS_ITS | Encounter Summary ---
Author Organization [facility] Address [address] [place] [address] Care Team Providers Care Interactive Digital Media Specialist Name Role Phone Bobby Das MD Primary Care Provider [phone] Encounter Details Date Type Department Care Team (Late st Contact Info) Description 01/16/2018 Documentation Visit [facility] Radiation Oncology - [address] [address] Santhosh Cosby Social History Tobacco Use Types Packs/Day Years Used Date Smoking Tobacco: Every Day Smokeless Tobacco: Never Sex and Gender Information Value Date Recorded Sex Assigned at Not on file Gender Identity Not on file Sexual Orientation Not on file documented as of this encounter Progress Notes * Santhosh Cosby - 01/16/2018 9690 EST SOCIAL WORK ASSESSMENT: Amount of Distress: 0 Practical Problems: None Family Problems: None Emotional Problems: None Physical Problems: None Spiritual/Mormonism Concerns: No Other Problems: Social Work Assessment: Met with Koko and his Ursula following his SIM. Reviewed the role of social work and other supportive services offered. Pt and his feel they are coping well at thistime and declined any referrals. 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 They enjoy traveling and spending time with their children. Pt and declined any referrals at this time. Working Diagnosis/Presenting Problem: Prostate Cancer Living Arrangements: Pt lives in [place], [place] with his . 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 Functional Status (psychosocial and physical): Pt admits he worries at times about his diagnosis but feels he is coping well. He and his have a close relationship and support one another throughdifficult times. Social Supports: Pt's Ursula, his adult children, and grandchildren. Existing Community Resources: none noted Advanced Directives/DPOA: Discussed document with pt today. Cultural/Spiritual Needs: none noted Insurance/Financial Needs: No insurance or financial concerns noted. Transportation Needs: None noted. Pt plans to drive himself. Plan: No social work needs at present. Pt agreed to contact social work as needed. ASH Antonio phone [phone] pager [phone] documented in this encounter Plan of Treatment Not on file documented as of this encounter Visit Diagnoses Not on filedocumented in this encounter Care Teams Interactive Digital Media Specialist Relationship Specialty Start Date End Date Bobby Das MD [address] [place] [address],[address] [place] [phone] PCP - General 07/06/15 documented as of this encounter
--- OUTSIDE RECORDS SUMMARY | 2024-09-17 01:28 | XMS_ITS | Encounter Summary ---
Author Organization [facility] Address [address] [place] [address] Care Team Providers Care Loan Clerk Name Role Phone Bobby Das MD Primary Care Provider [phone] Reason for Visit * Reason Onset Date Comments Appointment Related 03/19/2018 Encounter Details Date Type Department Care Team (Late st Contact Info) Description 03/19/2018 Telephone [facility] Urology - [facility] [address] [place], [place] [id number] Dominique Mirza, RN Appointment Related Social History Tobacco Use Types Packs/Day Years Used Date Smoking Tobacco: Every Day Smokeless Tobacco: Never Sex and Gender Information Value Date Recorded Sex Assigned at Not on file Gender Identity Not on file Sexual Orientation Not on file documented as of this encounter Miscellaneous Notes * Telephone Encounter - Dominique Mirza RN - 03/19/2018 1040 EDT Per , the pt's appts for 04/07 can all be cancelled and You can cancel his follow up there. I will plan to see him at [facility]. Tc to pt to advise he contact [facility] and be sure appt has been scheduled for him to see at the end of this month or approximate. * Telephone Encounter - Dominique Mirza RN - 03/19/2018 0924 EDT Tc to pt to advise, per , the pt is reporting side effects from the Lupron injection and canstop the Lupron. Routed to rimma Bowser to advise cancel nsg appt on 04/07 but the pt still has an appt with on 04/07. Message sent to to ask if pt should keep the 04/07 appt with him and if so, can the pt be seen at [facility] as originally suggested in 's 01/05 progress note. Will call patient to let him know if he needs to f/u with and if so, can he be seen at [facility]. documented in this encounter Plan of Treatment Not on file documented as of this encounter Visit Diagnoses Not on filedocumented in this encounter Care Teams Loan Clerk Relationship Specialty Start Date End Date Bobby Das MD [address] [place] [address],[address] [place] [phone] PCP - General 07/06/15 documented as of this encounter
--- OUTSIDE RECORDS SUMMARY | 2024-09-17 01:28 | XMS_ITS | Encounter Summary ---
Author Organization [facility] Address [address] [place] [address] Care Team Providers Care Rubber Cutter And Shape Carver Name Role Phone Bobby Das MD Primary Care Provider [phone] Reason for Visit * Reason Comments Prostate Cancer Encounter Details Date Type Department Care Team (Late st Contact Info) Description 02/17/2018 Radiation Therapy Visit [facility] Radiation Oncology - [address] [id number] Aries Gutierrez MD [address] [facility], [address] 2 [place] [address] Malignant neoplasm of prostate (HCC-CMS) (Primary Dx) Social History Tobacco Use Types Packs/Day Years Used Date Smoking Tobacco: Every Day Smokeless Tobacco: Never Sex and Gender Information Value Date Recorded Sex Assigned at Not on file Gender Identity Not on file Sexual Orientation Not on file documented as of this encounter Progress Notes * Delores Gutierrez III, MD - 02/17/2018 1119 EDT On Treatment Visit Assessment: Koko Zamora is currently receiving radiation therapy treatment and is being seen today for his weekly on treatment visit. The encounter diagnosis was Malignant neoplasm of prostate (HCC-CMS). Assessment: Assessment Completed By: Felix Gutierrez MD (02/17/18 1121) Radiation Therapy: Cumulative RT Dose 3600 cGy [...] Changes: None Sj Gutierrez MD Radiation Oncology [phone] ([phone] (pager) documented in this encounter Plan of Treatment Not on file documented as of this encounter Visit Diagnoses Diagnosis Malignant neoplasm of prostate (HCC-CMS)- Primary Malignant neoplasm of prostate documented in this encounter Care Teams Rubber Cutter And Shape Carver Relationship Specialty Start Date End Date Bobby Das MD [address] [place] [address],[address] [place] [address] PCP - General 07/06/15 documented as of this encounter
--- OUTSIDE RECORDS SUMMARY | 2024-09-17 01:28 | XMS_ITS | Encounter Summary ---
Author Organization [facility] Address [address] [place] [address] Care Team Providers Care Content Strategist Name Role Phone Bobby Das MD Primary Care Provider [phone] Reason for Visit * Reason Comments Follow-up Injection Encounter Details Date Type Department Care Team (Late st Contact Info) Description 01/05/2018 9:30 EST Office Visit [facility] Urology - [address] [phone] Chino José MD [address] [place] [address], [address] 5 [place] [address] Malignant neoplasm of prostate (HCC-CMS) [...] documented in this encounter Progress Notes * Ama Corea RN - 01/05/2018 0930 EST Lupron 22.5 mg mixed and injected into left buttocks without incidence per Dr. José's order. I was supervised by Dr José who was present and immediately available in the office suite. Ama Corea RN 01/05/2018 10:00 * Chino José MD - 01/05/2018 8921 EST Chief Complaint: Chief Complaint Patient presents with ??? Follow-up Injection HPI: Koko is a 77 y.o. male with prostate cancer. Grant presented with an elevated PSA to 12.8 and a palpable nodule and on biopsy had 2 out of 12 cores positive for [place] 3+3 and [place] 3+4 prostate cancer. T2a. He previously had [...] Take 1 Tab by mouth 2 times daily. Start Cipro the night [...] associated with a PSA of 12.8. He presents today for a 3 month Lupron injection and we will proceed with radiation therapy with Dr. Gutierrez starting next month. Plan: Follow up with Dr. Gutierrez this week See me at [facility] after radiation therapy is complete with a PSA Chino José MD documented in this encounter Plan of Treatment Not on file documented as of this encounter Visit Diagnoses Diagnosis Malignant neoplasm of prostate (HCC-CMS)- Primary Malignant neoplasm of prostate documented in this encounter Administered Medications Inactive Administered Medications - up to 3 most recent administrations Medication Order MAR Action Action Date Dose Rate Site leuprolide (LUPRON DEPOT) injection 22.5 mg 22.5 mg, intramuscular, Once (Without Time Specified), 1 dose, Starting on Fri01/05/18 at 0948, Until Fri01/05/18 at 0959, Routine Given 01/05/2018 9:59 EST 22.5 mg Left Glu teus Medius/Ventroglutea l documented in this encounter Orders Medications Ordered That Artur ht Not Have Been Administered Count Last Ordered Date First Ordered Date leuprolide (LUPRON DEPOT) in jection 22.5 mg 1 01/05/2018 documented in this encounter Care Teams Content Strategist Relationship Specialty Start Date End Date Bobby Das MD [address] [place] [address],[address] [place] [address] PCP - General 07/06/15 documented as of this encounter
--- OUTSIDE RECORDS SUMMARY | 2024-09-17 01:28 | XMS_ITS | Encounter Summary ---
Author Organization [facility] Address [address] [place] [address] Care Team Providers Care Hotel Administrative Assistant Name Role Phone Bobby Das MD Primary Care Provider [phone] Reason for Visit * Reason Onset Date Comments Medication Management 02/16/2018 Encounter Details Date Type Department Care Team (Late st Contact Info) Description 02/16/2018 Orders Only [facility] Radiation Oncology - [facility] [address] [place], [place] [address] Isela Law, DION Social History Tobacco Use Types Packs/Day Years [...] daily. 30 Cap 11 02/16/2018 03/04/2019 documented in this encounter Plan of Treatment Not on file documented as of this encounter Visit Diagnoses Not on filedocumented in this encounter Care Teams Hotel Administrative Assistant Relationship Specialty Start Date End Date Bobby Das MD [address] [place] [address],[address] [place] [phone] PCP - General 07/06/15 documented as of this encounter
--- OUTSIDE RECORDS SUMMARY | 2024-09-17 01:28 | XMS_ITS | Encounter Summary ---
Author Organization [facility] Address [address] [place] [address] Care Team Providers Care Informatics Application Analyst Name Role Phone Bobby Das MD Primary Care Provider [phone] Reason for Visit * Reason Onset Date Comments Follow-up 02/24/2018 Appointment Related 02/24/2018 scheduled ap pt w/ nursing for Lupron injection on 04/06 Encounter Details Date Type Department Care Team (Late st Contact Info) Description 02/24/2018 Telephone [facility] Urology - [facility] [address] [place] [address] Ama Corea, RN Follow-up; Appointment Related (scheduled appt w/ nursing for Lupron injection on 04/06) Social History Tobacco Use Types Packs/Day Years Used Date Smoking Tobacco: Every Day Smokeless Tobacco: Never Sex and Gender Information Value Date Recorded Sex Assigned at Not on file Gender Identity Not on file Sexual Orientation Not on file documented as of this encounter Miscellaneous Notes * Telephone Encounter - Mague Crisostomo - 02/25/2018 1044 EDT scheduled appt w/ nursing for Lupron injection on 04/06; pt prefers it at the [place] office * Telephone Encounter - Ama Corea, RN - [...] on filedocumented in this encounter Care Teams Informatics Application Analyst Relationship Specialty Start Date End Date Bobby aDs MD [address] [place] [address],[address] [place] [phone] PCP - General 07/06/15 documented as of this encounter
--- OUTSIDE RECORDS SUMMARY | 2024-09-17 01:28 | XMS_ITS | Encounter Summary ---
Author Organization [facility] Address [address] [place] [address] Care Team Providers Care Waterway Traffic Checker Name Role Phone Bobby Das MD Primary Care Provider [phone] Reason for Visit * Reason Onset Date Comments Prostate Cancer 11/20/2017 Encounter Details Date Type Department Care Team (Late st Contact Info) Description 11/20/2017 Orders Only [facility] Cancer Center Radiation Oncology - [address] [phone] Aries Gutierrez MD [address] [facility], [address] [place] [address] Social History Tobacco Use Types Packs/Day Years Used Date Smoking Tobacco: Every Day Smokeless Tobacco: Never Sex and Gender Information Value Date Recorded Sex Assigned at Not on file Gender Identity Not on file Sexual Orientation Not on file documented as of this encounter Ordered Prescriptions Prescription Sig Dispensed Refills Start Date End Da te bicalutamide (CASODEX) 50 mg tablet Take 1 Tab by mouth daily. Don't start taking until instructed by Dr. Gutierrez 28 Tab 11/20/2017 01/08/2018 documented in this encounter Plan of Treatment Not on file documented as of this encounter Visit Diagnoses Not on filedocumented in this encounter Care Teams Waterway Traffic Checker Relationship Specialty Start Date End Date Bobby Das MD [address] [place] [address],[address] [place] [phone] PCP - General 07/06/15 documented as of this encounter
--- OUTSIDE RECORDS SUMMARY | 2024-09-17 01:28 | XMS_ITS | Encounter Summary ---
Author Organization [facility] Address [address] [place] [address] Care Team Providers Care Mental Health Technician Name Role Phone Bobby Das MD Primary Care Provider [phone] Reason for Visit * Reason Onset Date Comments Medication Management 11/21/2017 Encounter Details Date Type Department Care Team (Late st Contact Info) Description 11/21/2017 Orders Only [facility] Radiation Oncology - [place] [address] [place], [place] [address] Isela Law, DION Social History Tobacco Use Types Packs/Day Years Used Date Smoking Tobacco: Every Day Smokeless Tobacco: Never Sex and Gender Information Value Date Recorded Sex Assigned at Not on file Gender Identity Not on file Sexual Orientation Not on file documented as of this encounter Ordered Prescriptions Prescription Sig Dispensed Refills Start Date End Da te ciprofloxacin HCl (CIPRO) 500 mg tablet Take 1 Tab by mouth 2 times daily. Start Cipro the night prior to your planned procedure. 7 Tab 01/07/2018 02/03/2018 documented in this encounter Plan of Treatment Not on file documented as of this encounter Visit Diagnoses Not on filedocumented in this encounter Care Teams Mental Health Technician Relationship Specialty Start Date End Date Bobby Das MD [address] [place] [address],[address] [place] [address] PCP - General 07/06/15 documented as of this encounter
--- OUTSIDE RECORDS SUMMARY | 2024-09-17 01:28 | XMS_ITS | Encounter Summary ---
Author Organization [facility] Address [address] [place] [address] Care Team Providers Care Case Management Associate Name Role Phone Bobby Das MD Primary Care Provider [phone] Reason for Visit * Reason Comments Cancer Encounter Details Date Type Department Care Team (Latest Contact Info) Description 02/16/2018 Radiation Therapy Visit [facility] Radiation Oncology - Main [address] [phone] Isela Law, RN Malignant neoplasm of prostate [...] - documented in this encounter Progress Notes * Isela Law RN - 02/16/2018 1356 EDT [...] increased nocturia. Reports the weekend was not worse but he is just ready to try to [...] documented in this encounter Care Teams Case Management Associate Relationship Specialty Start Date End Date Bobby Das MD [address] [place] [address] ,[address] [place] [address] PCP - General 07/06/15 documented as of this encounter
--- OUTSIDE RECORDS SUMMARY | 2024-09-17 01:28 | XMS_ITS | Encounter Summary ---
Author Organization [facility] Address [address] [place] [address] Care Team Providers Care Overweaver Name Role Phone Bobby Das MD Primary Care Provider [phone] Reason for Visit * Reason Comments Follow-up Encounter Details Date Type Department Care Team (Late st Contact Info) Description 12/02/2017 14:45 EST Office Visit [facility] Urology - [address] [phone] Chino José MD [address] [place] [address], [address] [place] [address] Malignant neoplasm of prostate (HCC-CMS) [...] documented in this encounter Progress Notes * Emilee Kaba RN - 12/02/2017 9228 EST Patient has been advised that hormonal Ablation involves the use of anti- androgens. An androgen is a male hormone needed for the production of testosterone. By depriving the cancer cells of the testosterone they need for growth, tumors regress in size and cellular activity. Side effects include gyne comastia, the enlargement of breast tissue, hot flashes, and loss of libido ( desire to have sex ).Some intermediate school teacher hormonal therapy is associated with the loss of muscle mass, osteoporosis, and malaise ( loss of energy ). Consent given to treatment. Lupron 7.5 mg mixed and injected into right buttocks without incidence per Dr. José order. I was supervised by who was present and immediately available in the office suite. Emilee Kaba RN 12/02/2017 15:14 * Chino José MD - 12/02/2017 7180 EST Chief Complaint: Chief Complaint Patient presents with ??? Follow-up HPI: Koko is a 77 y.o. male with prostate cancer. I originally saw the patient and [facility] and diagnosed him with [place] 3+4 prostate cancer associated with a PSA of 12.8. He underwent a bone scan for staging that came back negative for metastatic disease. [facility] He started [...] results found for: PSA Impression: Patient with Col[place] 3+4 localized prostate cancer who is undergoing radiation therapy for treatment. Plan: 1 month Lupron injection Continue Casodex until prescription completed Follow-up in 1 month for a 3 month Lupron injection Follow-up with Dr. Gutierrez, scheduled Chino José MD documented in this encounter Plan of Treatment Not on file documented as of this encounter Visit Diagnoses Diagnosis Malignant neoplasm of prostate (HCC-CMS)- Primary Malignant neoplasm of prostate documented in this encounter Administered Medications Inactive Administered Medications - up to 3 most recent administrations Medication Order MAR Action Action Date Dose Rate Site leuprolide (LUPRON DEPOT) injection 7.5 mg 7.5 mg, intramuscular, Once (Without Time Specified), 1 dose, Starting on Fri12/02/17 at 1530, Until Fri12/02/17 at 1513, Routine Given 12/02/2017 15:13 EST 7.5 mg Right Gluteus Medius/Ventrogluteal documented in this encounter Orders Medications Ordered That Artur ht Not Have Been Administered Count Last Ordered Date First Ordered Date leuprolide (LUPRON DEPOT) injection 7.5 mg 1 12/02/2017 documented in this encounter Care Teams Overweaver Relationship Specialty Start Date End Date Bobby Das MD [address] [place] [address],[address] [place] [address] PCP - General 8/27/15 documented as of this encounter
--- OUTSIDE RECORDS SUMMARY | 2024-09-17 01:28 | XMS_ITS | Encounter Summary ---
Author Organization [facility] Address [address] [place] [address] Care Team Providers Care Corn Detasseler Machine Operator Name Role Phone Bobby Das MD Primary Care Provider [phone] Encounter Details Date Type Department Care Team (Late st Contact Info) Description 03/04/2018 Documentation Visit [facility] Cancer Center Radiation Oncology - [address] [address] Aries Gutierrez MD [address] [place] [address], [address] [place] [phone] Social History Tobacco Use Types Packs/Day Years Used Date Smoking Tobacco: Every Day Smokeless Tobacco: Never Sex and Gender Information Value Date Recorded Sex Assigned at Not on file Gender Identity Not on file Sexual Orientation Not on file documented as of this encounter Miscellaneous Notes * Treatment Summary - Delores Gutierrez III, MD - 03/04/2018 1339 EDT Images from the original note were not included. RADIATION ONCOLOGY TREATMENT SUMMARY SITE, HISTOPATHOLOGY AND STAGE: [id number], PSA 12.8 Schulter score 3+4 = 7 adenocarcinoma prostate. Heis being treated with a short course of [...] tamsulosin. He had mild bowel irregularity and no significant fatigue during his treatment. FOLLOW-UP: Koko Zamora will return to see me in three months. He will continue routine follow-up with Dr. José. Sj Gutierrez MD Radiation Oncology [phone] (pager) This note has been prepared with voice recognition software. Please excuse metal room dental technician errors. documented in this encounter Plan of Treatment Not on file documented as of this encounter Visit Diagnoses Not on filedocumented in this encounter Care Teams Corn Detasseler Machine Operator Relationship Specialty Start Date End Date Bobby Das MD [address] [place] [address] ,[address] [place] [address] PCP - General 07/06/15 documented as of this encounter
--- OUTSIDE RECORDS SUMMARY | 2024-09-17 01:28 | XMS_ITS | Encounter Summary ---
Author Organization [facility] Address [address] [place] [address] Care Team Providers Care Pickup Driver Name Role Phone Bobby Das MD Primary Care Provider [phone] Encounter Details Date Type Department Care Team (Latest Contact Info) Description 10/29/2017 9:35 EST - 10/29/2017 23:59 EST Hospital Encounter [address] [address] Unknown, Provider, MD Discharge Disposition: Home or Self Care Social [...] on filedocumented in this encounter Care Teams Pickup Driver Relationship Specialty Start Date End Date Bobby Das MD [address] [place] [address],[address] [place] [address] PCP - General 07/06/15 documented as of this encounter
--- OUTSIDE RECORDS SUMMARY | 2024-09-17 01:28 | XMS_ITS | Encounter Summary ---
Author Organization [facility] Address [address] [place] [address] Care Team Providers Care Boom Stick Man Name Role Phone Unknown, Provider Primary Care Provider Unava ilable Encounter Details Date Type Department Care Team (Late st Contact Info) Description 07/03/2015 Results Only [facility] [phone] Abby Das MD [address] [place] [address],[address] [place] [address] Social History Tobacco Use Types [...] Date/Time Associated Diagnosis Comments SURGICAL PATHOLOGY Routine 07/03/2015 8:54 EDT documented in this encounter Results * SURGICAL PATHOLOGY (07/03/2015 8:54 EDT) Pathology Report: SURGICAL PATHOLOGY REPORT Reports generated via electronic interface contain original data; however they are lacking the format of the original report. Caution should be taken when reading/interpret ing unformatted reports. Name: ? ETTA BAH ? Accession #: ? [id number] ? : ? 1940 (Age: 74) ??M ? Collect Date: ? 07/03/2015 ? Location: ? [facility] ? Receive Date: ? 07/04/2015 ? Provider: ABBY DAS MD Copy to: ? Final Pathologic Diagnosis: SKIN OF LUTHERAN, RIGHT, EXCISION: - Basal cell carcinoma, infiltrative type. ??See comment. - Perineural invasion identified. - Margins of excision positive. ??- Lesion extends to peripheral and deep margins of excision specimen. Comment: These results were phoned to Dr. Das's office. ??(Dr. Morris)/formerly [facility] Document reviewed and electronically signed by: MARYCARMEN MORRIS MD Report ??Date: 07/05/2015 14:52 By the signature above, the attending physician certifies that he/she has personally conducted a gross and/or microscopic examination of the described specimens and rendered or confirmed the above diagnosis. Specimen(s) Received: R catholic Clinical History: Basal cell carcinoma reexcision Gross Description: ? Received in formalin labelled with proper patient identification (initials F, R) not otherwise specified is an unoriented elliptical excision of de leon-pink skin (1.6 x 0.6 cm and is excised to a depth of 0.5 cm). There is a centrally located depression (0.2 x 0.1 cm) with no definitive lesion grossly identified and along the periphery is a focal area of purple discoloration. The margins are inked blue. The specimen is serially sectioned and entirely submitted as 1-2 central sections and 3 tips, reverse en face. Dr. Arguello ? 07/04/2015 10:29 End of Report [facility] 07/03/2015 8:54 EDT 07/04/2015 8:54 EDT Abby Das MD PATHOLOGY ORDERABLES [facility] [address] [place] [address] documented in this encounter Visit Diagnoses Not on filedocumented in this encounter Care Teams Boom Stick Man Relationship Specialty Start Date End Date Unknown, Provider, PCP - General 07/03/15 07/05/15 documented as of this encounter
--- OUTSIDE RECORDS SUMMARY | 2024-09-17 01:28 | XMS_ITS | Encounter Summary ---
Author Organization [facility] Address [address] [place] [address] Care Team Providers Care Bicycle Fitter Name Role Phone Bobby Das MD Primary Care Provider [phone] Reason for Visit * Reason Comments Cancer Encounter Details Date Type Department Care Team (Late st Contact Info) Description 02/06/2018 Radiation Therapy Visit [facility] Radiation Oncology - Main [place] [address] [place] [address] Lynn Vargas RN [address] [place] [address] Malignant neoplasm of prostate (HCC-[facility]) (Primary Dx) Social History Tobacco Use Types Packs/Day Years Used Date Smoking Tobacco: Every Day Smokeless Tobacco: Never Sex and Gender Information Value Date Recorded Sex Assigned at Not on file Gender Identity Not on file Sexual Orientation Not on file documented as of this encounter Progress Notes * Lynn Vargas RN - 02/06/2018 1233 EDT On Treatment Visit Assessment: Koko Zamora is currently receiving radiation therapy treatment and is being seen today for his weekly on treatment visit. The encounter diagnosis was Malignant neoplasm of prostate (CMS-HCC). Assessment: Assessment Completed By: Lynn Vargas RN (02/06/18 7586) Radiation Therapy: Cumulative RT Dose 1500 cGy [...] he may take stool softeners and laxatives ifneeded. Nutrition: Regular diet Pain: pelvic Numeric Pain Level (Scale 1-10): 0 Narcotic: No Psychosocial: Coping well. States he has good support. Running a B&B - states they are having abusy week. Physical Exam: General Appearance: Appears comfortable, [...] Malignant neoplasm of prostate ([facility])- Primary Malignant neoplasm of prostate documented in this encounter Care Teams Bicycle Fitter Relationship Specialty Start Date End Date Bobby Das MD [address] [place] [address],[address] [place] [address] PCP - General 07/06/15 documented as of this encounter
--- OUTSIDE RECORDS SUMMARY | 2024-09-17 01:28 | XMS_ITS | Encounter Summary ---
Author Organization [facility] Address [address] [place] [address] Care Team Providers Care Cashier Office Name Role Phone Bobby Das MD Primary Care Provider [phone] Encounter Details Date Type Department Care Team (Late st Contact Info) Description 01/16/2018 Results Only Imaging [facility] Cancer Center Radiation Oncology - [address] [address] Aries Gutierrez MD [address] [place] [address], [address] [place] [phone] Social History Tobacco Use Types Packs/Day Years Used Date Smoking Tobacco: Every Day Smokeless Tobacco: Never Sex and Gender Information Value Date Recorded Sex Assigned at Not on file Gender Identity Not on file Sexual Orientation Not on file documented as of this encounter Plan of Treatment Pending Results Name Type Priority Associated Diagnoses Date /Time OUTSIDE IMAGES - CT CHEST Imaging 01/16/2018 8:51 EST documented as of this encounter Visit Diagnoses Not on filedocumented in this encounter Care Teams Cashier Office Relationship Specialty Start Date End Date Bobby Das MD [address] [place] [address],[address] [place] [address] PCP - General 07/06/15 documented as of this encounter
--- OUTSIDE RECORDS SUMMARY | 2024-09-17 01:28 | XMS_ITS | Encounter Summary ---
Author Organization [facility] Address [facility] [place] [address] Care Team Providers Care Police Cadet Name Role Phone Bobby Das MD Primary Care Provider [phone] Encounter Details Date Type Department Care Team (Late st Contact Info) Description 11/27/2023 Telephone Dermatology at [facility] [address] [place] [address] Lina Lugo MD [facility] [address] [place] [address] Social History Tobacco Use Types Packs/Day Years Used Date Smoking Tobacco: Former Cigarettes 0.5 50 0 05/15/1972 - 05/15/2022 Smokeless Tobacco: Never Alcohol Use Standard Drinks/Week Comments Not Currently 42 (1 standard drink = 0.6 oz pure alcohol) Last alcohol use in May 2022 [facility] Utilities Answer Date Recorded In the past 12 months has [email or web address] electric, gas, oil, or water company threatened [...] place to sleep or slept in a halfway (including now)? No 11/08/2023 [facility] IPV Inpatient [...] encounter Miscellaneous Notes * Telephone Encounter - Zainab Sommer CMA - 11/27/2023 8:56 AM EST Patient called and declines to pursue Mohs Surgery at this time for basal cell carcinoma located onthe right nasal alar crease. He has suffered a stroke, he verbalized understanding that Mohs surgery was recommended by their referring provider. I also advised patient I would be routing chart back to referring provider for follow up. documented in this encounter Plan of Treatment Not on file documented as of this encounter Visit Diagnoses Not on filedocumented in this encounter Care Teams Police Cadet Relationship Specialty Start Date End Date Bobby Das MD [address] [place] [address] [place] [address] PCP - General 10/02/10 documented as of this encounter
--- OUTSIDE RECORDS SUMMARY | 2024-09-17 01:28 | XMS_ITS | Encounter Summary ---
Author Organization [facility] Address [address] [place] [address] Care Team Providers Care Engine Manager Name Role Phone Bobby Das MD Primary Care Provider [phone] Reason for Visit * Reason Onset Date Comments Cancer 03/18/2018 Encounter Details Date Type Department Care Team (Late st Contact Info) Description 03/18/2018 Telephone [facility] Radiation Oncology - [address] [id number] Aries Gutierrez MD [address] [facility], [address] [place] [address] Cancer Social History Tobacco Use Types Packs/Day Years Used Date Smoking Tobacco: Every Day Smokeless Tobacco: Never Sex and Gender Information Value Date Recorded Sex Assigned at Not on file Gender Identity Not on file Sexual Orientation Not on file documented as of this encounter Miscellaneous Notes * Telephone Encounter - Delores Gutierrez III, MD - 03/18/2018 7346 EDT RADIATION ONCOLOGY Mr. Zamora called the office today specifically wondering if he needs to continue his androgen deprivation injections. He tells me he is due for his next injection later this month. He specificallystates that he noted some bilateral upper arm [...] prostate cancer and was treated with an aggressiveradiation regimen that it would be reasonable to hold his androgen deprivation after 4 months rather than continuing for a full 6. I will be in touch with Dr. José suggesting we discontinue his androgen deprivation and that he nothave his next scheduled injection later this month. Sj Gutierrez MD Radiation Oncology [phone] (office) [phone] (pager) This note has been prepared with voice recognition software. Please excuse tire manager errors. documented in this encounter Plan of Treatment Not on file documented as of this encounter Visit Diagnoses Not on filedocumented in this encounter Care Teams Engine Manager Relationship Specialty Start Date End Date Bobby Das MD [address] [place] [address] ,[address] [place] [phone] PCP - General 07/06/15 documented as of this encounter
--- OUTSIDE RECORDS SUMMARY | 2024-09-17 01:28 | XMS_ITS | Encounter Summary ---
Author Organization [facility] Address [address] [place] [address] Care Team Providers Care Research Laboratory Technician Name Role Phone Bobby Das MD Primary Care Provider [phone] Reason for Visit * Reason Comments Prostate Cancer Encounter Details Date Type Department Care Team (Late st Contact Info) Description 02/23/2018 Radiation Therapy Visit [facility] Radiation Oncology - [address] [id number] Aries Gutierrez MD [address] [place] [address], [address] [place] [address] Malignant neoplasm of prostate (HCC-CMS) (Primary Dx) Social History Tobacco Use Types Packs/Day Years Used Date Smoking Tobacco: Every Day Smokeless Tobacco: Never Sex and Gender Information Value Date Recorded Sex Assigned at Not on file Gender Identity Not on file Sexual Orientation Not on file documented as of this encounter Progress Notes * Delores Gutierrez III, MD - 02/23/2018 1111 EDT On Treatment Visit Assessment: Koko Zamora is currently receiving radiation therapy treatment and is being seen today for his weekly on treatment visit. The encounter diagnosis was Malignant neoplasm of prostate (HCC-CMS). Assessment: Assessment Completed By: Felix Gutierrez MD (02/23/18 1137) Radiation Therapy: Cumulative RT Dose 4800 cGy [...] Dr. King Sj Gutierrez MD Radiation Oncology [phone] (office) [phone] (pager) documented in this encounter Plan of Treatment Not on file documented as of this encounter Visit Diagnoses Diagnosis Malignant neoplasm of prostate (HCC-CMS)- Primary Malignant neoplasm of prostate documented in this encounter Care Teams Research Laboratory Technician Relationship Specialty Start Date End Date Bobby Das MD [address] [place] [address],[address] [place] [phone] PCP - General 07/06/15 documented as of this encounter
--- OUTSIDE RECORDS SUMMARY | 2024-09-17 01:28 | XMS_ITS | Encounter Summary ---
Author Organization [facility] Address [address] [place] [address] Care Team Providers Care Row Boss Hoeing Name Role Phone Bobby Das MD Primary Care Provider [phone] Encounter Details Date Type Department Care Team (Late st Contact Info) Description 01/08/2018 11:00 EST Procedure visit [facility] Radiation Oncology - [address] [id number] Aries Gutierrez MD [address] [place] [address], [address] [place] [address] Discharge Disposition: Auto Discharge Social History Tobacco [...] Notes * Delores Gutierrez III, MD - 01/08/2018 1100 EST FIDUCIAL MARKER INSERTION PROCEDURE: Transrectal ultrasound-guided insertion of fiducial markers (Xmarks) into the prostate gland. DATE OF SERVICE: 01/08/2018 INDICATIONS: [id number], PSA 12.8 Winifred score 3+4 = 7 adenocarcinoma prostate NARRATIVE: Koko Zamora was brought to the procedure room, his name and date of were confirmed and a pre-procedure checklist completed. After signing appropriate written consent, he was placed in the lithotomy position on the treatment table. [...] After the appropriate locations were confirmed with ul trasound, I inserted the fiducial markers and removed the needles. I held pressure on the insertionsites for approximately 5 minutes and removed the transrectal ultrasound probe. Images from today'sprocedure are available in PACS. After he was [...] Discontinue Reason Start Date End Da te bicalutamide (CASODEX) 50 mg tablet Take 1 Tab by mouth daily. Don't start taking until instructed by Dr. Gutierrez Therapy completed 11/20/2017 01/08/2018 documented as of this encounter Care Teams Row Boss Hoeing Relationship Specialty Start Date End Date Bobby Das MD [address] [place] [address],[address] [place] [address] PCP - General 07/06/15 documented as of this encounter
--- OUTSIDE RECORDS SUMMARY | 2024-09-17 01:28 | XMS_ITS | Encounter Summary ---
Author Organization [facility] Address [address] [place] [address] Care Team Providers Care Lawn Sprinkler Installer Name Role Phone Bobby Das MD Primary Care Provider [phone] Encounter Details Date Type Department Care Team (Late st Contact Info) Description 01/08/2018 8:35 EST - 01/08/2018 23:59 EST Hospital Encounter [facility] Radiation Oncology - [address] [id number] Aries Gutierrez MD [address] [facility], [address] [place] [address] Discharge Disposition: Home or Self [...] Take 500 mg by mouth daily. 02/03/2018 ciprofloxacin HCl (CIPRO) 500 mg tablet Take 1 Tab by mouth 2 times daily. Start Cipro the night prior to your planned procedure. 7 Tab 01/07/2018 02/03/2018 documented as of this encounter Discharge Disposition Disposition Code Departure Means Destination Home or Self [facility] documented in this encounter Plan of Treatment Not on file documented as of this encounter Visit Diagnoses Not on filedocumented in this encounter Care Teams Lawn Sprinkler Installer Relationship Specialty Start Date End Date Bobby Das MD [address] [place] [address],[address] [place] [phone] PCP - General 07/06/15 documented as of this encounter
--- OUTSIDE RECORDS SUMMARY | 2024-09-17 01:28 | XMS_ITS | Encounter Summary ---
Author Organization [facility] Address [address] [place] [address] Care Team Providers Care Conduit Helper Name Role Phone Bobby Das MD Primary Care Provider [phone] Reason for Visit * Reason Comments Prostate Cancer Encounter Details Date Type Department Care Team (Late st Contact Info) Description 02/03/2018 Radiation Therapy Visit [facility] Radiation Oncology - [address] [phone] Aries Gutierrez MD [address] [facility], [address] [place] [address] Malignant neoplasm of prostate (HCC-CMS) (Primary Dx) Social History Tobacco Use Types Packs/Day Years Used Date Smoking Tobacco: Every Day Smokeless Tobacco: Never Sex and Gender Information Value Date Recorded Sex Assigned at Not on file Gender Identity Not on file Sexual Orientation Not on file documented as of this encounter Progress Notes * Delores Gutierrez III, MD - 02/03/2018 1218 EDT On Treatment Visit Assessment: Koko Zamora is currently receiving radiation therapy treatment and is being seen today for his weekly on treatment visit. The encounter diagnosis was Malignant neoplasm of prostate (CMS-HCC). Assessment: Assessment Completed By: Felix Gutierrez MD (02/03/18 9980) Radiation Therapy: Cumulative RT Dose 600 cGy [...] Changes: None Sj Gutierrez MD Radiation Oncology [phone] (office) [phone] (pager) documented in this encounter Plan of Treatment Not on file documented as of this encounter Visit Diagnoses Diagnosis Malignant neoplasm of prostate (HCC-CMS)- Primary Malignant neoplasm of prostate documented in this encounter Discontinued Medications Medication Sig Discontinue Reason Start Date End Da te ciprofloxacin HCl (CIPRO) 500 mg tablet Take 1 Tab by mouth 2 times daily. Start Cipro the night prior to your planned procedure. 01/07/2018 02/03/2018 ascorbic acid, vitamin C, (VITAMIN C) 500 mg tablet Take 500 mg by mouth daily. 02/03/2018 documented as of this encounter Care Teams Conduit Helper Relationship Specialty Start Date End Date Bobby Das MD [address] [place] [address] ,[address] [place] [address] PCP - General 07/06/15 documented as of this encounter
--- OUTSIDE RECORDS SUMMARY | 2024-09-17 01:28 | XMS_ITS | Encounter Summary ---
Author Organization [facility] Address [address] [place] [address] Care Team Providers Care Belt And Link Assembly Supervisor Name Role Phone Bobby Das MD Primary Care Provider [phone] Reason for Visit * Reason Comments Cancer Encounter Details Date Type Department Care Team (Latest Contact Info) Description 02/24/2018 Radiation Therapy Visit [facility] Radiation Oncology - Main [address] [address] Isela Law, DION Malignant neoplasm of prostate (HCC-CMS) (Primary Dx); Androgen deprivation therapy Social History Tobacco Use Types Packs/Day Years Used Date Smoking Tobacco: Every Day Smokeless Tobacco: Never Sex and Gender Information Value Date Recorded Sex Assigned at Not on file Gender Identity Not on file Sexual Orientation Not on file documented as of this encounter Progress Notes * Isela Law RN - 02/24/2018 1208 EDT [...] starting Flomax. Bowels more frequent, not diarrhea, smallstools, energy still good. Nutrition: Reg Pain: Pelvis Numeric Pain Level (Scale 1-10): 0 Narcotic: No Psychosocial: Completes this week. 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 Has been a busy season with all the snow. Review of Systems: Improved [...] post RT. He has an appointment with in 3 months. Medication Changes: May start Citrucel as discussed to control bowel irregularity. documented in this encounter Plan of Treatment Not on file documented as of this encounter Visit Diagnoses Diagnosis Malignant neoplasm of prostate (HCC-CMS)- Primary Malignant neoplasm of prostate Androgen deprivation therapy Encounter for therapeutic drug monitoring documented in this encounter Care Teams Belt And Link Assembly Supervisor Relationship Specialty Start Date End Date Bobby Das MD [address] [place] [address],[address] [place] [address] PCP - General 07/06/15 documented as of this encounter
--- OUTSIDE RECORDS SUMMARY | 2024-09-17 01:28 | XMS_ITS | Encounter Summary ---
Author Organization [facility] [place] [address] Care Team Providers Care Ssrs Report Developer Name Role Phone Bobby Das MD Primary Care Provider [phone] Encounter Details Date Type Department Care Team (Late st Contact Info) Description 12/08/2023 Telephone Cardiology at [address] [phone] Ama Leblanc Social History Tobacco Use Types Packs/Day Years Used Date Smoking Tobacco: Former Cigarettes 0.5 50 0 05/15/1972 - 05/15/2022 Smokeless Tobacco: Never Alcohol Use Standard Drinks/Week Comments Not Currently 42 (1 standard drink = 0.6 oz pure alcohol) Last alcohol use in May 2022 [facility] Utilities Answer Date Recorded In the past 12 months has [employer], gas, oil, or water [employer] threatened to shut off services in your [...] encounter Miscellaneous Notes * Telephone Encounter - Ama Leblanc - 12/08/2023 8:45 AM EST I spoke to this patient's and she says she doesn't think he's interested in looking into a watchman device at this time, but he was not awake yet so she will speak with him and if he does want to look into it they will call us back. She took down my direct phone number. documented in this encounter Plan of Treatment Not on file documented as of this encounter Visit Diagnoses Not on filedocumented in this encounter Care Teams Ssrs Report Developer Relationship Specialty Start Date End Date Bobby Das MD [address] [place] [address] [place] [phone] PCP - General 10/02/10 documented as of this encounter
--- OUTSIDE RECORDS SUMMARY | 2024-09-17 01:28 | XMS_ITS | Encounter Summary ---
Author Organization [facility] Address [address] [place] [address] Care Team Providers Care Truck Chauffeur Name Role Phone Bobby Das MD Primary Care Provider [phone] Reason for Visit * Reason Comments Prostate Cancer Encounter Details Date Type Department Care Team (Late st Contact Info) Description 02/10/2018 Radiation Therapy Visit [facility] Radiation Oncology - [address] [phone] Aries Gutierrez MD [address] [facility], [address] [place] [address] Malignant neoplasm of prostate (HCC-CMS) (Primary Dx) Social History Tobacco Use Types Packs/Day Years Used Date Smoking Tobacco: Every Day Smokeless Tobacco: Never Sex and Gender Information Value Date Recorded Sex Assigned at Not on file Gender Identity Not on file Sexual Orientation Not on file documented as of this encounter Progress Notes * Delores Gutierrez III, MD - 02/10/2018 1123 EDT On Treatment Visit Assessment: Koko Zamora is currently receiving radiation therapy treatment and is being seen today for his weekly on treatment visit. The encounter diagnosis was Malignant neoplasm of prostate (HCC-CMS). Assessment: Assessment Completed By: Felix Gutierrez MD (02/10/18 1125) Radiation Therapy: Cumulative RT Dose 2400 cGy Daily RT Dose 300 cGy Total RT Planned Dose 6000 cGy Chemotherapy Agent Lupron 6 months Subjective Note: General: Bowels now OK on regular diet. Energy good, staying active. Urination a bit slow, nocturiax 2 Numeric Pain Level (Scale 1-10): 0 [...] Changes: None Sj Gutierrez MD Radiation Oncology [phone] (office) [phone] (pager) documented in this encounter Plan of Treatment Not on file documented as of this encounter Visit Diagnoses Diagnosis Malignant neoplasm of prostate (HCC-CMS)- Primary Malignant neoplasm of prostate documented in this encounter Care Teams Truck Chauffeur Relationship Specialty Start Date End Date Bobby Das MD [address] [place] [address],[address] [place] [address] PCP - General 07/06/15 documented as of this encounter
--- OUTSIDE RECORDS SUMMARY | 2024-09-17 01:29 | XMS_ITS | Encounter Summary ---
Author Organization [facility] Address [facility] [place] [address] Care Team Providers Care Developmental Mathematics Professor Name Role Phone Bobby Das MD Primary Care Provider [phone] Reason for Referral * Consultation (Routine) - Closed Specialty Diagnoses / Procedures Referred By Colby quezada Referred To Contact Dermatology Diagnoses Basal cell carcinoma of right ala nasi Mile Villafuerte MD [facility] [address] [facility] [address] Jace Lynn MD [facility] [address] [facility] [address] Referral ID Status Reason Start Date Expiration Date V isits Requested Visits Authorized [id number] Closed Consult, Test & Treat 08/05/2023 08/04/2024 1 1 Reason for Visit * Consultation (Urgent) - Closed Specialty Diagnoses / Procedures Referred By Conthomar t Referred To Contact Dermatology Diagnoses Basal cell carcinoma (BCC), unspecified site Bobby Dsa MD [address] [place] [address] [place] [address] [facility] [address] [place] [address] Referral ID Status Reason Start Date Expiration Date V isits Requested Visits Authorized [id number] Closed Consult, Test & Treat PCP Updated and/or Approved 06/12/2023 06/11/2024 6 6 Encounter Details Date Type Department Care Team (Late st Contact Info) Description 07/28/2023 10:00 AM EDT Office Visit Dermatology at [facility] [address] [place] [address] Mile Villafuerte MD [facility] [address] [facility] [address] History of basal cell carcinoma (BCC); AK (actinic keratosis); Lentigines; SK (seborrheic keratosis); Multiple benign nevi; Neoplasm of unspecified behavior of bone, soft tissue, and skin; Basal cell carcinoma of right ala nasi Social History Tobacco Use Types Packs/Day Years Used Date Smoking Tobacco: Former Cigarettes 0.5 50 0 05/15/1972 - 05/15/2022 Smokeless Tobacco: Never Alcohol Use Standard Drinks/Week Comments Yes 42 (1 standard drink = 0.6 oz pu re alcohol) Last alcohol use in May 2022 Sex and Gender Information Value Date Recorded Sex Assigned at Not on file Gender Identity Not on file Sexual Orientation Not on file documented as of this encounter Progress Notes * Mile Villafuerte MD - 07/28/2023 10:00 AM EDT Images from the original note were not included. DEPARTMENT OF DERMATOLOGY Medical D[facility]atology [facility] Provider: Mile Villafuerte MD Patient's preferred name Koko Preferred contact method for results [x]Phone []myD-H []Letter Detailed phone message OK? Yes Are there any other people with whom we may discuss your care? Ursula Zamora Past Medical History Date, location, treatment Melanoma N Dysplastic nevi N SCC N BCC 2014: right buddhist, BCC s/p mohs 09/2018: right eyebrow, BCC [...] of Present Illness: Koko Zamora is a 82 y.o. Patient returns to clinic today for a spot of concern on the nose. Last visit at Dermatology: 06/10/2022 Last visit with this provider: Visit date not found Medications: Reviewed in eD-H Allergies: Reviewed in eD-H Skin Examination: Full skin examination: Patient asked to undress to their comfort level. Verbalized that the provider's preference is that patient remove all clothing and that the provider will not examine areas patient elects to keep covered. Examination of the scalp, hair, head, face, ears, neck, chest, axillae, abdomen, back, buttocks, genitalia, and upper and lower extremities was normal with the exception ofthe findings below. Assessment/Plan # Solar lentigines - 0.3-0.6cm light-brown evenly pigmented, well-demarcated macules in a photodistributed pattern on the face, trunk and extremities. - Recommend diligent sun protection (hats/shade/clothing/sunscreen) - Discussed warning signs of skin cancer # Seborrheic keratoses - rueda/brown waxy stuck-on papules and plaques on the trunk and extremities. - Reassured of the benign nature of these lesions - No treatment needed # Melanocytic nevi - Scattered medium-brown macules and papules on the head, trunk, and extremities. Of note: 4mm brown macule with reticular network with dark brown dots on the central back. Joint decision to monitor and recheck at next visit. (Figure 2) - Morphology reassuring for benign nevi. - Reassured of benign appearance on exam today. - Reviewed warning signs of skin cancer - Recommend daily sun protection with protective clothing and SPF 30+ #. Rosacea - rhinophymatous thick plaques on the nose. - discussed how this may contribute to poor healing of prior nose surgery and future nose surgery Rx: tretinoin (Retin-A) 0.025% cream: Apply a pea sized amount to the face at bedtime after washing, start by applying 3 times a week and increase to nightly as tolerated. - We discussed risks and benefits of topical tretinoin which include but are not limited to photosensitivity, potential teratogenicity, irritation, erythema, peeling. We discussed ability for UV light to inactive the medication requiring application at night. #. Actinic Keratosis -0.2-0.3cm scaly irregular pink papule(s) on the right helix x1, right cheek x1, right postauricular x1 - Discussed the natural history and etiology of actinic keratoses including the premalignant potential of these lesions. -Discussed treatment options. Procedure Note: Procedure: Destruction of lesion(s) with cryotherapy. Number: 3 Location: as above Discussed procedure and expectations including risks (including risk of hypopigmentation) and benefits. Verbal consent obtained. Frozen with LN2, 15-30 second thaw time, TWICE. There were no complications; the patient tolerated the procedure well. Post-procedure expectations and wound care were reviewed. #. DDX: Favor BCC recurrent first primary - 0.3mm pink pearly papule with telangectasia (Figure 1) - After review of risks and benefits, joint decision made to pursue shave biopsy today. Procedure: Skin biopsy by shave technique Location: right alar rim Discussed indications for procedure and expectations including risks and benefits. Verbal consent obtained. Skin prep with alcohol. Local anesthesia with 1% lidocaine, 1/100,000 epinephrine. A sampleof the lesion was removed by shave technique to the level of the dermis and submitted to Pathology.Hemostasis obtained. There were no complications; the patient tolerated the procedure well. The wound was dressed. Post-procedure expectations, wound care and activity restrictions were reviewed. Follow-up based on pathology results. #. History of BCC - scar(s) on the right buddhist - possible recurrence on the nose, see above Figure 1 Figure 2 Photo(s) taken and charted with patient's verbal consent. Other: N/A RTC: 3 months for mole recheck and rosacea follow up []Note routed to options advisor []Recall placed in scheduling system []Appointment scheduled at checkout Scribe attestation: Hilton Chavez has performed the documentation for this encounter in the presence of and acting as a scribe for Mile Villafuerte MD. I performed the above scribed service and agree with the accuracy of the documentation in this encounter. Reviewed and signed by: Mile Villafuerte MD Dermatology [facility] Patient seen and evaluated with staff software installation engineer: June Lua MD Dermatology [facility] * Juen Lua MD - 07/28/2023 10:00 AM EDT I directly supervised Dr. Villafuerte during this office visit. Dr. Villafuerte presented the history and physical exam to me. I, then, saw and examined this patient with Dr. Villafuerte. We reviewed the history and pertinent details and I confirmed the physical findings. I agree with the details of the history and physical exam as documented in Dr. Villafuerte's note. June Lua MD Staff Physician * Mile Villafuerte MD - 07/28/2023 10:00 AM EDT Spoke to Koko about the result below: Surgical Pathology DIAGNOSIS Right alar rim, skin shave biopsy: - Basal cell carcinoma, superficial and nodular types, present at the peripheral and deep specimen edges Will re-refer to Mohs for this. He agrees to the plan. Mile Villafuerte MD documented in this encounter Miscellaneous Notes * Addendum Note - Mile Villafuerte MD - 07/28/2023 10:00 AM EDTAddended by: MILE VILLAFUERTE on: 08/05/2023 11:47 AM Modules accepted: Orders documented in this encounter Plan of Treatment Scheduled Referrals Name Type Priority Associated Diagnoses Order Schedule Referral to Dermatology Outpatient Referral Routine Basal cell carcinoma of right ala nasi Ordered: 08/05/2023 documented as of this encounter Procedures Procedure Name Priority Date/Time Associated Diagnosis Comments SURGICAL PATHOLOGY REPORT Routine 07/28/2023 11:40 AM EDT SPECIMEN TO PATHOLOGY Routine 07/28/2023 11:40 AM EDT Neoplasm of unspecified behavior of bone, soft tissue, and skin documented in this encounter Results * (ABNORMAL) Surgical Pathology Report (07/28/2023 11:40 AM EDT) Final Diagnosis [id number] ? Location: [facility] The signing pathologist has (i) examined the relevant preparation(s) for the specimen(s) and (ii) rendered or confirmed the diagnosis(es). . ?Surgical Pathology DIAGNOSIS Right alar rim, skin shave biopsy: - ??Basal cell carcinoma, superficial and nodular types, present at the peripheral and deep specimen edges Electronically signed by: ?Theresa CARCAMO, PhD, Giovani Gomez Verified: ??08/04/2023 12:13 ??Dermatopatholog ist, Bone & Soft Tissue Pathologist Performed at: ??[facility] Dept. of Pathology, [place] [address] Coding Spec: Scout Landis MD, FCAP, ??CLIA Certificate: [id number] DISCUSSION THIS RESULT REQUIRES PHYSICIAN/A.P.P. FOLLOW UP SPECIMEN(S) SUBMITTED A - Right alar rim, skin shave biopsy (1) CLINICAL INFORMATION Favor BCC recurrent first primary - 0.3 mm pearly papule with telangiectasia SPECIMEN PROCESSING A - Labeled/Fixative: Patient demographics, formalin. Quantity/Size: ??Single, 0.4 x 0.3 x 0.2 cm. Tissue Description: Rueda-white papule small eccentric crust, 0.2 cm. Sections/Processi ng: Inked, bisected and entirely submitted in 1 cassette labeled A1. ??pps(A) 08/04/2023 12:13 PM EDT [facility] SPECIMEN FROM SKIN / Unknown 07/28/2023 11:40 AM EDT 07/28/2023 11:40 AM EDT Mile Villafuerte MD PATHOLOGY/CYTOLOGY [place], [place] [id number] [place] [address] [place] [address] * Specimen to Pathology (07/28/2023 11:40 AM EDT) AP Specimen 07/28/2023 11:4 0 AM EDT 07/28/2023 11:40 AM EDT Narrative [facility] - 07/28/2023 11:40 AM EDT Specimen requisition ordered. ??Separate Pathology report to follow June Lua MD PATHOLOGY/CYTOLOGY O [place] Performing Organization Address City/[facility]/ZIP Co de Phone Number [facility] [place] [address] documented in this encounter Visit Diagnoses Diagnosis History of basal cell carcinoma (BCC) AK (actinic keratosis) Actinic keratosis Lentigines Other dyschromia SK (seborrheic keratosis) Other seborrheic keratosis Multiple benign nevi Benign neoplasm of skin, site unspecified Neoplasm of unspecified behavior of bone, soft tissue, and skin Basal cell carcinoma of right ala nasi Basal cell carcinoma of skin of other and unspecified parts of face documented in this encounter Care Teams Developmental Mathematics Professor Relationship Specialty Start Date End Date Bobby Das MD [address] [place] [address] [place] [address] PCP - General 10/02/10 documented as of this encounter
--- OUTSIDE RECORDS SUMMARY | 2024-09-17 01:29 | XMS_ITS | Encounter Summary ---
Author Organization [facility] [place] [address] Care Team Providers Care Manager Heavy Equipment Name Role Phone Bobby Das MD Primary Care Provider [phone] Reason for Visit * Reason Onset Date Comments Prior Authorization 07/29/2023 tretinoin (R ETIN-A) 0.025 % Cream Encounter Details Date Type Department Care Team (Late st Contact Info) Description 07/29/2023 [place] [address] Avril Jones MA Prior Authorization (tretinoin (RETIN-A) 0.025 % Cream) Social History Tobacco Use Types Packs/Day Years [...] encounter Miscellaneous Notes * Telephone Encounter - Rachana Hinojosa CMA - 07/30/2023 3:43 PM EDTSummary: Approval Submitted Date: Submitted Date: 07/29/2023 Next Review Date: Next Review Date: 11/09/2023 PA Outcome: PA Approval Medication Prior Authorization Approval Approved: Tretinoin 0.025% cream Start Date: 07/29/2023 End Date: 11/09/2023 Case/Reference #: [id number] Approval Letter will be scanned into media once received. * Telephone Encounter - Jazmine Campos LNA - 07/29/2023 4:21 PM EDT Images from the original note were not included. Received more info form faxed to: * Telephone Encounter - Avril Jones MA - 07/29/2023 10:49 AM EDTSummary: JOSEE Request tretinoin (RETIN-A) 0.025 % Cream Images from the original note were not included. PA Submitted Submitted Date: Submitted Date: 07/29/2023 Medication Prior Authorization Patient: Koko Zamora Patient : 1940 Insurance Company: [employer] [employer] Sent via: Publish2 Zeng: [id number] Physician: June Lua MD Medication Requested: tretinoin (RETIN-A) 0.025 % Cream Frequency/Sig: Apply topically nightly. Disp: 45 g Refills: 0 Currently taking: no If yes, how long: Diagnosis for this medication: L7.9 Rosacea L7.9 Rosacea Prior medications trialed in this patient: Additional Notes:07/28/2023 Office Notes of Lina Lugo MD Dermatology #. Rosacea - rhinophymatous thick plaques on [...] to inactive the medication requiring application at night documented in this encounter Plan of Treatment Not on file documented as of this encounter Visit Diagnoses Not on filedocumented in this encounter Care Teams Manager Heavy Equipment Relationship Specialty Start Date End Date Bobby Das MD [address] [place] [address] [place] [phone] PCP - General 10/02/10 documented as of this encounter
--- OUTSIDE RECORDS SUMMARY | 2024-09-17 01:29 | XMS_ITS | Encounter Summary ---
Author Organization [place] [place] [address] Care Team Providers Care Screen Printing Supervisor Name Role Phone Bobby Das MD Primary Care Provider [phone] Encounter Details Date Type Department Care Team (Late st Contact Info) Description 10/27/2023 Telephone [place] [phone] Faby Hirsch Social History Tobacco Use Types Packs/Day Years [...] encounter Miscellaneous Notes * Telephone Encounter - Faby Hirsch - 10/27/2023 10:01 AM EST Spoke with patient. He does not want to see Dr. Ponce ever again. He is very upset with they way hehandled the last endoscopy and refuses to have anything further to do with Dr. Ponce further. documented in this encounter Plan of Treatment Not on file documented as of this encounter Visit Diagnoses Not on filedocumented in this encounter Care Teams Screen Printing Supervisor Relationship Specialty Start Date End Date Bobby Das MD [address] [place] [address] [place] [phone] PCP - General 10/02/10 documented as of this encounter
--- OUTSIDE RECORDS SUMMARY | 2024-09-17 01:29 | XMS_ITS | Encounter Summary ---
Author Organization [place] [address] Care Team Providers Care Fiberglass Ski Maker Name Role Phone Bobby Das MD Primary Care Provider Encounter Details Date Type Department Care Team (Late st Contact Info) Description 10/14/2023 Notes Only Cardiology at [address] [address] Grant Jimenez, RN Social History Tobacco Use Types Packs/Day Years [...] as of this encounter Progress Notes * Grant Jimenez, RN - 10/14/2023 7:09 AM EST Mr. Zamora is referred by Ifrah Tellez MD for consideration of left atrial appendage closure options; please refer to notes in media section for detailed history and assessment. In brief, the patient has had episodes of GI bleeding while on OAC and is interested in pursuing non pharmacological options for stroke prevention. His history includes the following: Chronic Atrial Fibrillation; CAD S/P Stents May 2022; HFrEF; GIB; DM Type 2; HLD; GERD; Anemia and current drinker (42 beers/week). [id number] VASc: 5 (HF, Age, DM, Vascular disease) HAS-BLED: 4 (Bleeding, Age, Medications, Alcohol usage) Anticoagulation/antiplatelet: Eliquis/Plavix Plan: Schedule MD clinic documented in this encounter Plan of Treatment Not on file documented as of this encounter Visit Diagnoses Not on filedocumented in this encounter Care Teams Fiberglass Ski Maker Relationship Specialty Start Date End Date Bobby Das MD [address] [place] [address] [place] [address] PCP - General 10/02/10 documented as of this encounter
--- OUTSIDE RECORDS SUMMARY | 2024-09-17 01:29 | XMS_ITS | Encounter Summary ---
[place] [address] Care Team Providers Care Nerve Specialist Name Role Phone Bobby Das MD Primary Care Provider [phone] Reason for Visit * Reason Comments Fall * Auth/Cert (Routine) Specialty Diagnoses / Procedures Referred By Colby quezada Referred To Contact Diagnoses Stroke Fernanda Pineda MD [facility] [place] [address] [facility] Referral ID Status Reason Start Date Expiration Date Visits Re quested Visits Authorized [id number] 1 1 Encounter Details Date Type Department Care Team (Latest Contact Info) Description 11/06/2023 9:53 AM EST - 11/12/2023 11:10 AM EST Hospital Encounter Medical Specialites Unit Level 1 [place] [address] Barbie Traore MD [facility] [place] [address] Fernanda Pineda MD [facility] [place] [address] Galilea Fournier MD [facility] [place] [address] Marcie Moss MD [facility] [place] [address] Cerebrovascular accident (CVA), unspecified mechanism; Atrial fibrillation, unspecified type; Acute stroke due to ischemia Discharge Disposition: Rehab Center in a Facility Social History Tobacco Use Types Packs/Day Years Used Date Smoking Tobacco: Former Cigarettes 0.5 50 0 05/15/1972 - 05/15/2022 Smokeless Tobacco: Never Alcohol Use Standard Drinks/Week Comments Not Currently 42 (1 standard drink = 0.6 oz pure alcohol) Last alcohol use in May 2022 [facility] Utilities Answer Date Recorded In the past [...] place to sleep or slept in a long term (including now)? No 11/08/2023 DH IPV Inpatient [...] Mass Index 24.73 11/09/2023 12:24 PM EST documented in this encounter Discharge Summaries * Esmer Sotomayor, HIRAL - 11/12/2023 9:48 AM EST Images from the original note were not included. Discharge Summary Patient Name: Koko Zamora Patient Age: 83 y.o. Language: Citizen Of [place] Admit date: 11/06/2023 Discharge date and time: 249:47 AM Attending Physician: Marcie Moss MD Discharge Physician: Marcie Moss MD PCP: Bobby Das MD Follow-up Recommendations for Providers: - Continue Eliquis 2.5mg BID. Patient does qualify for 5mg BID, but due to history of previous bleeds patient wants to keep dose of 2.5mg BID --educated that he meets criteria for full dose anticoagulation, but patient and refused, riskdiscussed -Continue Rosuvastatin 40mg daily for secondary stroke risk reduction -Goal blood pressure normotension Diet on Discharge: Regular/ thin liquids Diabetes PLAN Insulin glargine:10 units daily Lispro 1:10 insulin to carbohydrate ratio Lispro Correction: Sensitive 1:40 correction for BG >160 Diet: Carb Controlled 60/60/75g Monitoring: BG Q4 - Follow up with outpatient cardiology team to revisit timing for Watchman device placement in setting of acute ischemic stroke - Follow up in outpatient neurology clinic coordinated on discharge - Follow up with PCP for further management of modifiable secondary stroke risk factors Modifiable Risk Factors in Secondary Stroke Prevention Risk Factor Treatment Goals Hypertension Neurologically stable patients with cerebrovascular disease benefit from a BP goal of <130/80 mm?Hg Dyslipidemia Atherosclerotic stroke or TIA: low-density lipoprotein (LDL) cholesterol level <70 mg/dl or 50% reduction in LDL cholesterol level from baseline Nonatherosclerotic stroke or TIA: per National Cholesterol Education Program (NCEP) Adult TreatmentPanel III (ATP-III) goals Diabetes Mellitus HgA1c level <7% Cigarette Smoking Complete cessation Alcohol Consumption Men: two or fewer drinks per day Non woman: one or fewer drinks per day Physical Activity At least 30 minutes of moderate intensity physical exercise 1- 3 times per week Diet Low-fat, low-sodium, and Mediterranean or Dietary Approaches to Stop Hypertension diets (diabetic diet when applicable) Obesity Goal body mass index of 18.5-25 kg/m2 Inpatient Provider Contact Information: For questions regarding this document or issues related to this hospitalization on the Neurology Service, please contact . Discharge Diagnoses: Active Hospital Problems Diagnosis LEFT BRUCE distribution infarct Aphasia as late effect of cerebrovascular accident Past medical History: No past medical history on file. Active Non Hospital Problems: Active Non-Hospital Problems Diagnosis GI bleed Coronary artery disease involving ambler coronary artery of ambler heart without angina pectoris HFrEF (heart failure with reduced ejection fraction) Permanent atrial fibrillation Limb ischemia History of basal cell carcinoma Basal cell carcinoma Verruca vulgaris AK (actinic keratosis) GIB (gastrointestinal bleeding) MVP (mitral valve prolapse) s/p repair Hypertriglyceridemia Adhesive capsulitis of L shoulder Alcohol use History of Presentation: Attestation signed by Galilea Fournier MD at 11/06/2023 5:01 PM (Updated) Neurology Staff Note I have reviewed the resident's history during the visit and I agree with the details as written. Myphysical examination confirms the resident's findings. The assessment and plan were formulated in discussion with me at the time of the visit and I agree with them as documented. 83 yo man off apixaban with last dose 11/01, here for LASHAY occlusion device placement, while [facility] developed R leg weakness as witnessed on the hospital surveillance cameras at 9:34AM and fell to the R. On exam he has an expressive> receptive aphasia, R arm and leg drift (although may be associatedwith pain), and dysarthria. CT head with no bleed. CTA with L distal BRUCE occlusion. Risk/benefit of IV TPA discussed with patient and his extensively and patient and both decided to proceed with thrombolytics which were given as soon as cleared by trauma. ID: Koko Zamora is a 83 y.o. with PMH of permanent AFIB (on Eliquis though held after dose 11/01), TII DM, CAD s/p stenting May (on Plavix), HLD, HFrEF, MV repair for mitral valve prolapse in 2000, prior GIB on ASA (iso duodenal and colonic angiectasias), PAD (s/p LLE ACLI s/p embolectomy with 4 compartment fasciotomy), and basal cell carcinoma who presented to the ED as a stroke alert foracute onset of R sided weakness, AMS, and aphasia. Pt's states they were here at [facility] this AM walking up the ramp into the main entrance of the building ( states they were here for a planned Watchmen procedure with Dr. Figueroa) when the pt suddenly appeared to go weak in the R leg and then fell down. She states that when he fell he hit his knee, then shoulder, then his head during the fall. believes that he did lose consciousness foll owing the fall (reports that his eyes opened after the fall though he did not appear to be responding to her). also reports that his pupils appeared small at that time. states he did not seem to come around for several minutes, though appeared confused even after he seemed to regain consciousness. states that there was plan for the Watchmen device placement because there is concern for blood clots in the patient in the setting of issues with GIB on ASA (see note from Dr. Figueroa 10/22/23 for further details). He has reportedly been on blood thinner since May of 2022. He stopped taking the Eliquis after his dose on Friday night (11/01). We reviewed security footage of the pt's fall. The fall occurred at approximately 0934 AM as the pt was approaching the front entrance. He did appear to have some minor R leg weakness with swinging of the leg as he was walking into the building, and then fell onto his R knee and striking his R shoulder as he fell (though did not clearly appear to strike his head). BP 156/101, BG 121. Initial trauma scans included CT cervical spine, CT CAP wo contrast, CT lumbar and thoracic spine. Cleared for tpa from trauma perspective. WBC 9.6, Hbg 16.2, Plt 154. Coags: PT 10.9, INR 1 PTT 28 No lyte abnormalities, Cr 0.87 Physical Exam: GEN- Appears somnolent, though will direct attention towards examiner's voice, oriented to self andage, following simple commands appropriately, there is some loss of fluency of speech, unable to identify hammock in the NIHSS booklet (though able to identify other objects), Mild dysarthria CN- PERRL, VFFTC, EOMI, no facial asymmetry, tongue midline, palate rises symmetrically MOTOR- There is subtle drift towards bed in RUE and RLE, No drift in LUE/LLE SENSATION - intact and symmetric to LT in BUE/BLE without evidence of sensory extinction CEREBELLUM - FTN intact (has some difficulty performing this on the RUE though not clearly ataxic),HTS intact CV/PULM - Irregularly irregular, no murmurs; respirations appear unlabored Admission NIH Stroke Scale: NIH Stroke Scale Date 11/06/23 NIH Stroke Scale Time 1030 Level of Consciousness 1 LOC Questions 0 LOC Commands 0 Best Gaze 0 Vision 0 Facial Palsy 0 Motor Arm, Left 0 Motor Arm, Right 1 Motor Leg, Left 0 Motor Leg, Right 1 Limb Ataxia 0 Sensory 0 Best Language 1 Dysarthria 1 Extinction and Inattention: 0 NIH Total Score 5 Hospital Course: Koko Zamora is a 83 y.o. male who was admitted to the neurology service for further evaluation of acute onset of R sided weakness, AMS, and aphasia concerning for stroke. #Ischemic Stroke Neurological examination on admission was pertinent for R sided weakness, AMS, and aphasia. NIHSS 5. Patient was monitored with frequent checks of vitals and neurological status. Telemetry monitoringshowed known chronic atrial fibrillation. Permissive HTN was allowed, with labetalol administered prn for SBP >220. MRI demonstrated left BRUCE territory infarct with additional punctate foci of restricted diffusion in the right precentral gyrus, bilateral lateral inferior frontal gyri and left centrum semiovale. Vascular imaging showed a distal left BRUCE (A2/3 segment) occlusion not amendable toMT; also severe stenosis and focal occlusion of the right ICA origin, severe stenosis of the left ICA origin, and severe stenosis of the right vertebral artery origin. TTE revealed mildly to moderately reduced left ventricular systolic function; LVEF 40-45%; sclerotic aortic valve with moderate stenosis and mild insufficiency; mild valve repair with mild stenosis; severe left and moderate right atrial enlargement; mildly dilated aortic root and proximal ascending aorta (both 4.0 cm); and compared with study of 09/05/2022, systolic function has improved, aortic stenosis has progressed, and aorta size is similar (3.9 cm for root and ascending on prior). See detailed reports as below. Most likely etiology of stroke was cardioembolic in setting of chronic afib, off Eliquis in anticipation of Watchman device placement (in fact, patient was entering the building for elective Watchman procedure when stroke occurred). AC resumed on day 5 of hospitalization pee HAMMAD trial. Plavix was not restarted, as patient was no longer taking due to prior GI Bleed. Patient was evaluated by rehabilitation services and deemed appropriate for acute rehab. Operations & Procedures: None Consultations: 1. PT/OT/RUBBER CALENDER HELPER 2. Endocrinology Diagnostic Tests & Neuroimaging: Study Results ECG Reading Physician Reading Date Result Priority Alan Reid MD [phone] [id number] 11/06/2023 Component Ref Range & Units 2 d ago 1 yr ago Ventricular rate BPM 99 106 QRS Duration ms 112 122 Q-T Interval ms 388 368 QTC Calculated (Bezet) ms 497 488 Calculated R Franklin degrees -55 -43 Calculated T Franklin degrees 73 109 INTERPRETATION Atrial fibrillation Left anterior fascicular block Minimal voltage criteria for LVH, may be normal variant ( [place] product ) Nonspecific ST and T wave abnormality Prolonged QT Abnormal ECG When compared with ECG of 31-MAY-2022 10:11, No significant change was found Confirmed by MD Reid Jonathan C. ([id number]) on 11/06/2023 3:33:17 PM Atrial fibrillation with rapidventricular response Left axis deviation Minimal voltage criteria for LVH, may be normal variant ( [place] product ) Cannot rule out Anterior infarct , age undetermined Abnormal ECG When compared with ECG of 20-MAY-2022 19:04, No significant change was found I personally reviewed the tracing and edited the fellows interpretation Confirmed by fellow MD Mckeon Benjamin ([id number]) on 06/02/2022 8:36:21 PM Confirmed by MD MARKS JOHN ([id number]) on 06/03/2022 5:04:32 PM CXR No results found. CT Head CT Head wo Contrast (Generic) Result Date: 11/07/2023 Localized left BRUCE infarct primarily involving the superior frontal gyrus as above without evidenceof significant mass effect or hemorrhage. Thank you for letting us participate in the care of this patient. If you are a health care provider and have any questions regarding this report, please contact the number below. For patients who have questions please contact the health health care attorney that requested your imaging first. Electronically signed by: Edson Danielle DO, DH [facility]([phone]), at 11/07/2023 2:19 PM MRA Head and Neck No results found. MRI BRAIN MRI Brain wo Contrast Result Date: 11/08/2023 No definitive interval infarct. There are more conspicuous small foci of diffusion restriction along the anterior left cingulate gyrus. 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 Few punctate foci of diffusion restriction again noted overthe frontal convexities. Thank you for letting us participate in the care of this patient. If you are a health care provider and have any questions regarding this report, please contact the number below. For patients who have questions please contact the health health care attorney that requested yourimaging first. Brain wo Contrast Result Date: 11/07/2023 1. Acute infarct in the left superior frontal gyrus, compatible with a left BRUCE territory infarct. No associated hemorrhage 2. Additional punctate foci of restricted diffusion, in the right precentral gyrus, bilateral lateral inferior frontal gyri and left centrum semiovale, compatible with punctate embolic infarcts. 3. No evidence of associated hemorrhagic conversion. Thank you for letting us participate in the care of this patient. If you are a health care provider and have any questions regarding this report, please contact the number below. For patients who have questions please contact the health health care attorney that requested your imaging first. Carotids/[place] of [place] CT Head wo & Multiphase CTA Head/Neck (THROMBECTOMY PROTOCOL) Result Date: 11/06/2023 1. No acute intracranial hemorrhage. 2. Occlusion of the left pericallosal BRUCE. 3. 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 4. Severe stenosis of the left ICA origin. 5. Severe stenosis of the right vertebral artery origin. 6. Remote left inferior frontal infarcts. Thank you forletting us participate in the care of this patient. If you are a health care provider and have any questions regarding this report, please contact the number below. For patients who have questions please contact the health health care attorney that requested your imaging first. Interpretation Summary Mildly to moderately reduced left ventricular systolic function. LVEF 40-45%. Normal right ventricular systolic function Sclerotic aortic valve with moderate stenosis and mild insufficiency Mild valve repair with mild stenosis Severe left and moderate right atrial enlargement Mildly dilated aortic root and proximal ascending aorta (both 4.0 cm) Compared with study of 09/05/2022, systolic function has improved, aortic stenosis has progressed, aorta size is similar (3.9 cm for root and ascending on prior) Procedure Complete-[id number]. The rhythm is atrial fibrillation. Left Ventricle Left ventricle is of normal size. Wall thickness is mildly increased. There is no left ventricular outflow tract obstruction. There is no ventricular septal defect. Left ventricular systolic function is moderately reduced. The left ventricular ejection fraction is 46% by Gaxiola's biplane. Left ventricular ejection fraction is estimated visually at 45-50% with beat to beat variability. Mild global hypokinesis. Right Ventricle The right ventricle is of normal size. Right ventricular systolic function is normal. Left Atrium The left atrium is severely dilated. There is no evidence for a patent foramen ovale. Right Atrium The right atrium is severely dilated. Aortic Valve The aortic valve is probably trileaflet. The aortic valve is mildly thickened. There is calcification of the aortic annulus. There is moderate aortic stenosis. The peak instantaneous gradient across the aortic valve is 24.4 mmHg. The mean gradient across the aortic valve is 16.3 mmHg. The aortic valve area calculated using the continuity equation is 1.2 cm^2. Zva 4.1. There is mild aortic regurgitation. Mitral Valve The mitral valve leaflets are thickened. surgical mitral valve repair present. There is mild mitral stenosis. The estimated mean gradient across the mitral valve is 5.1 mmHg . Heart rate: 87 beats per minute. There is trace mitral regurgitation. Tricuspid Valve There is mild thickening of the tricuspid leaflets. There is no tricuspid stenosis. There is mild tricuspid regurgitation. Pulmonic Valve The pulmonic valve is not well visualized. There is trace pulmonic valve regurgitation. Great Arteries The diameter at the level of the sinuses of Valsalva is 4.0 cm. The aortic root is dilated. The maximum diameter of the proximal ascending aorta is 4.0 cm. Venous Inferior vena cava is normal in size. Inferior vena cava collapse greater than 50% with respiration. Pericardium/Pleural The pericardium appears normal. Hemodynamics Pulmonary artery hypertension could not be assessed due to inadequate tricuspid regurgitation jet. The estimated right atrial pressure is 3mmHg. Left ventricular diastolic function is indeterminate. Left ventricular filling pressure is indeterminate. Labs: Lipid Panel Lab Results Component Value Date CHLPL 192 11/06/2023 HDL 61 11/06/2023 CHOLHDL 3.1 11/06/2023 LDLDIRECT 112 11/06/2023 Glucose Lab Results Component Value Date HA1C 7.7 (H) 11/06/2023 Last wbc, hgb, hct plt Recent Labs 11/12/23 0604 WBC 7.0 HGB 16.4 HCT 47.4 Last 3 Lytes Recent Labs 11/12/23 0604 11/11/23 0445 11/10/23 0505 NA 139 139 141 K 4.1 3.9 4.2 CL 104 103 104 CO2 23 25 25 BUN 24* 20 23* CREATININE 0.87 0.79* 0.97 Last 3 LFTs No results for input(s): AST, ALT, ALKPHOS, BILITOT, BILIDIR in the last 7068hours. Pending Studies and Lab Data: The patient will need the following test completed on: 11/06/2023 1. Cardiac Catheterization Diagnosis: Atrial fibrillation, unspecified type (I48.91) Authorizing Provider: Christian Orr MD PT Eval: AM-PAC Mobility 6 Click Completed?: Yes Turning from your back to your side while in a flat bed w/o using handrails?: 3 - A Little Standing up from a chair using your arms (e.g. wheelchair, or bedside commode)?: 3 - A Little Moving from lying on your back to sitting on the side of a flat bed w/o using bedrails?: 3 - A Little Moving to and from a bed to a chair (including a wheelchair): 2 - A Lot To walk in hospital room?: 2 - A Lot Climbing 3-5 steps with a railing?*: 1 - Total Anticipated Discharge Disposition (PT): acute rehabilitation facility OT Eval: How much help from another person does the patient currently need putting on and taking off regularlower body clothing?: 2 - A Lot How much help from another person does the patient currently need with bathing (including washing, rinsing, drying)?: 3 - A Little How much help from another person does the patient currently need with toileting, which includes using toilet, bedpan or urinal?: 3 - A Little How much help from another person does the patient currently need putting on and taking off regularupper body clothing?: 2 - A Lot How much help from another person does the patient currently need taking care of personal grooming such as brushing teeth?: 2 - A Lot How much help from another person does the patient currently need eathing meals?: 2 - A Lot Anticipated Discharge Disposition (OT): acute rehabilitation facility RUBBER CALENDER HELPER: Assessment: Koko Zamora was seen for a post-stroke RUBBER CALENDER HELPER evaluation. Cognitive-Linguistic Function Koko's performance on the LAST was indicative of expressive and receptive language deficits (primarily expressive). He presented with significant word- finding difficulty requiring either Y/N questions (e.g., Are you hungry?) or response choices (e.g., Do you want eggs or [place] toast?) to communicate effectively. He reliably identified targets on a low-tech communication board. Suspect somecomprehension breakdown with increased complexity. Shadi also presented with right-sided inattention but was able to scan R independently given additional time. We will continue to assess. Swallowing Koko reported ongoing feelings of esophageal stasis with tough, chewy solids since having an EGD in 06/2022. This was replicated at the bedside today. Otherwise, his swallow function appears largelyunchanged from his baseline. Recommend continuing a regular diet with thin liquids. Koko will require setup assistance due to RUE weakness. Diagnosis: Functional-appearing oropharyngeal swallow, suspected esophageal dysphagia (chronic), aphasia (acute, expressive>receptive) Recommendations: Diet: Regular solids, Thin liquids PO Medications: whole with sip of liquid Aspiration Precautions: Sit upright with meals Slow rate; small bites and sips Alternate liquids and solids Excellent oral care to reduce risk of aspiration pneumonia Communication Recommendations: Encourage all forms of communication (pointing, gestures and verbalizations) Decrease environmental distractions when communicating with patient Face patient when communicating with them Provide simple yes/no questions Provide no more than one-step directives, demonstrate/gesture when possible Allow extra time for patient to respond before repeating/rephrasing Attempt to validate patient's understanding Provide breaks as patient may fatigue easily Pt will benefit from continued RUBBER CALENDER HELPER services while hospitalized. Vital Signs at Discharge: BP: 119/75, Heart Rate: (!) 104, Temp: 37 ??C (98.6 ??F), Resp: 18, BMI (Calculated): 25.98 Height: 167.6 cm (5' 6) (11/09/23 1224) Weight: 69.5 kg (153 lb 3.2 oz) (11/12/23 0551) Physical Exam at Discharge: GEN- Awake/alert, oriented to age and month, following simple commands and cross body commands, there is some loss of fluency of speech, mild to moderate dysarthria, naming intact today (glove, cactus, diaz, chair), unable to name hammock-net CN- Pupils miotic and L slightly smaller vs the R but both reactive, VFFTC, EOMI, R facial droop, tongue midline MOTOR- RUE/RLE some drift though much improved, No drift in LUE/LLE SENSATION - intact and symmetric to LT in BUE/BLE without evidence of sensory extinction CEREBELLUM - FTN intact and HTS intact Discharge NIH Stroke Scale NIH Stroke Scale Date 11/12/23 NIH Stroke Scale Time 0830 Level of Consciousness 0 LOC Questions 0 LOC Commands 0 Best Gaze 0 Vision 0 Facial Palsy 1 Motor Arm, Left 0 Motor Arm, Right 0 Motor Leg, Left 0 Motor Leg, Right 0 Limb Ataxia 0 Sensory 0 Best Language 2 Dysarthria 1 Extinction and Inattention: 0 NIH Total Score 4 Discharge to: Rehab Updated Allergies/ADRs: Allergies Allergen Reactions Aspirin Other (See Comments) GI bleed Immunizations Given this Hospitalization: Immunization History Administered Date(s) Administered Moderna Covid-19 Monovalent 12Yr+ (Control Officer 100mcg) 12/06/2020, 01/03/2021 Discharge Medications: Your Medications New Medications Dose Details insulin glargine-yfgn 100 unit/mL Solution Commonly known as: Semglee Inject 10 Units subcutaneously daily. 10 Units Refills: 0 * insulin lispro 100 unit/mL Solution Commonly known as: HumaLOG Inject 0-8 Units subcutaneously 3 times daily (with meals). 0-8 Units Refills: 0 * insulin lispro 100 unit/mL Solution Commonly known as: HumaLOG Inject 1-4 Units subcutaneously every 4 hours. 1-4 Units Refills: 0 insulin needles (disposable) 32 gauge x 5/32 Needle Inject 1 each subcutaneously daily. Indications: diabetes 1 each Refills: 0 Lantus Solostar U-100 Insulin 100 unit/mL (3 mL) pen Inject 10 Units subcutaneously daily. Indications: type 2 diabetes mellitus Generic drug: insulin glargine 10 Units Refills: 0 melatonin 3 mg tablet Take 1 tablet by mouth nightly. 3 mg Refills: 0 metoproloL tartrate 25 mg tablet Commonly known as: Lopressor Take 0.5 tablets by mouth 2 times daily. 12.5 mg Refills: 0 pantoprazole EC [address] tablet Commonly known as: Protonix Take 1 tablet by mouth 2 times daily. 40 mg Refills: 0 traZODone 50 mg tablet Commonly known as: Desyrel Take 1 tablet by mouth nightly as needed for Sleep (if melatonin ineffective). 50 mg Refills: 0 * This list has 2 medication(s) that are the same as other medications prescribed for you. Read thedirections carefully, and ask your doctor or other care provider to review them with you. Continued medications with new dosing Dose Details metFORMIN XR 500 mg ER 24 hr tablet Commonly known as: Glucophage XR Take 1 tablet by mouth 2 times daily. What changed: how to take this 500 mg Refills: 0 Continued medications, unchanged Dose Details apixaban 2.5 mg tablet Commonly known as: Eliquis Take 1 tablet by mouth 2 times daily. 2.5 mg Quantity: 60 tablet Refills: 3 carboxymethylcellulose 0.5 % Dropperette Commonly known as: Refresh Plus Apply to eye 3 times daily as needed. Refills: 0 Crestor 40 mg tablet Take 40 mg by mouth daily. Generic drug: rosuvastatin 40 mg Refills: 0 fluorouraciL 5 % Cream Commonly known as: EFUDEX daily. Refills: 0 fluticasone propionate 50 mcg/actuation [place], Suspension Commonly known as: Flonase 1 spray by Each Nare route daily as needed. 1 spray Refills: 0 MULTIPLE VITAMIN ORAL Take 1 tablet by mouth daily. 1 tablet Refills: 0 tamsulosin 0.4 mg capsule Commonly known as: Flomax Take 0.4 mg by mouth daily. 0.4 mg Refills: 0 tretinoin 0.025 % Cream Commonly known as: RETIN-A Apply topically nightly. Quantity: 45 g Refills: 0 STOPPED Medications ascorbic acid (vitamin C) 1,000 mg tablet Commonly known as: Vitamin C calcium citrate 200 mg (950 mg) tablet Commonly known as: Calcitrate carvediloL 3.125 mg tablet Commonly known as: Coreg sildenafiL 100 mg tablet Commonly known as: Viagra SECONDARY STROKE PREVENTION: Preventative measure Antithrombotic Therapy Administered within 2 days of admission?: Yes Anticoagulation Therapy Prescribed at Discharge?: Yes Was statin medication prescribed at discharge?: Yes Was Guideline Recommended Statin Dose Prescribed at Discharge?: Yes Has patient had a cigarette within the last 365 days?: No Education: Patient/caregiver received written stroke discharge instructions/information?Yes The patient/caregiver accepted education on stroke warning signs and symptoms, personal modifiable stroke risk factors, activation of emergency medical systems for stroke, medications prescribed at discharge for stroke, and education on stroke follow-up. Modified Jerica Score (MRS) on discharge Score Description 0 No symptoms at all 1 No significant disability despite symptoms; able to carry out all usual duties and activities 2 Slight disability; unable to carry out all previous activities, but able to look after own affairs without assistance 3 Moderate disability; requiring some help, but able to walk without assistance 4 Moderately severe disability; unable to walk without assistance 5 Severe disability; bedridden, incontinent and requiring constant nursing care and attention 6 Total Score: 2 Instructions Given to Patient at Discharge: Patient Instructions Patient Instructions: You were admitted to the neurology service at [facility] Your Diagnosis: Ischemic Stroke - Work close with your primary care provider (PCP) with monitoring your blood pressure, blood sugarand cholesterol. - Lifestyle modifications should include: taking all medications as prescribed, smoking cessation or staying away from others who are smoking to avoid second hand smoke, limiting alcohol intake, maintaining a normal/healthy weight, adhering to a healthy diet (low-fat, low-sodium, high intake of fresh fruits and vegetables, limiting red meat), and engaging in regular physical activity. - -Continue Eliquis 2.5mg BID for atrial fibrillation -Continue Rosuvastatin 40mg for secondary stroke risk reduction -Goal blood pressure normotension -Follow up with stroke neurology requested day of discharge Call 911 or your local EMS if you have sudden weakness or numbness in your face or one of your limbs, slurred speech, loss of vision, or difficulty speaking. It is important to seek medical attentionas soon as possible, as these symptoms could be related to a new stroke. Diet: we recommend a heart healthy diet: low fat, low cholesterol, low concentrated sweets. Activity Restrictions: As tolerated. Driving Restrictions: No driving until cleared by a provider. Diabetes Follow-up and Instructions: 1. Continue to monitor your blood glucose (BG), also called blood sugar, with the goal of before-meal BG of 100 - 120 and after-meal BG of lower than 180. If you often have BG's lower than 80 or higher than 250, call your Health Care Provider. Your HbA1c target is less than 7.0%. 2. Know your cholesterol levels and the goal you are striving for. Your goal LDL is <100. 3. Continue to try eating healthy, which includes a low fat, low cholesterol, high fiber, no added sweets diet. 4. Exercising regularly is important. The goal for most people is 30 minutes of exercise, 3-4 timesper week. 30 minutes of exercise 5 days per week, never going more than 2 days in a row without exercise. Check with your Health care Provider for specific guidelines. 5. Monitor blood pressure weekly: Goal for most patients is 130/80 mm?Hg. Check with your Health Care Provider for specific guidelines. Continue to take all medications daily. 6. Remember to have an annual ophthalmic (eye) examination 7. Remember to have a quarterly foot examination done by your Health care provider. 8. Ask your Health care Provider about annual screening for urine micro-albumin. 9. Please plan quarterly follow-up visits for diabetes management with your Health care Provider. 10. Consider Diabetes Education in your community. The more you know about your diabetes, the better the decisions you will make every day. Know Your Numbers! Blood Pressure BP Readings from Last 3 Encounters: 11/08/23 106/65 10/22/23 98/52 12/12/22 114/62 HA1C Lab Results Component Value Date HA1C 7.7 (H) 11/06/2023 Cholesterol Lab Results Component Value Date CHLPL 192 11/06/2023 HDL 61 11/06/2023 CHOLHDL 3.1 11/06/2023 LDLDIRECT 112 11/06/2023 Below is an explanation of each of the cholesterol test results. Total cholesterol: This test is best when below 200. It can be improved primarily by a low fat diet. HDL (good cholesterol): The higher the better. It is best when above 50. It is primarily genetically determined but can be increased with exercise. LDL (bad cholesterol): this test is best when below 130 (or below 100 if you have heart disease or below 70 if you have had a stroke or TIA). It can be lowered by a low fat diet. Triglycerides: This test is best when below 180. It can be lowered by a low fat diet, avoidance of sweets and weight loss. Follow-up: Neurology: You will have a follow-up appointment in the neurology clinic at [facility]. See below for the appointment time. If you do not have an appointment, you will be called with a time/date for this appointment. NOTE: In an effort to reduce possible exposure to COVID-19, some clinic appointments are being conducted via telehealth with video. We will do our best to accommodate the best visit type, either in-person or via telehealth depending on each unique patient situation. Of note, if you consent to a telehealth encounter in lieu of face to face visit, you understand the visit may be billed similar to a regular [id number] clinic visit. Primary Care Provider: Please follow up with your Primary Care Provider within one to 2 weeks of discharge. For questions regarding this document or issues relating to this hospitalization on the Neurology Service, please contact the author(s) of this discharge summary through the [facility] [employer] . If you need to cancel or reschedule, please call Dept: [phone] as soon as possible. This is helpful to us and other waiting patients. IF FOLLOW UP VISIT WITH STROKE TEAM IS NEEDED IN FORM OF TELEHEALTH: Please ensure you have an active [employer] account and are familiar with it. Also, please ensure an active email address. To sign up for a [employer] account, Visit the [email or web address] website and 1) choose ???create an account?? 2) enter your date of 3) You will be asked if you have an activation code. If you have an activation code, click the ???yes?? button. If you do not have a code, click the ???no?? button. 4) If you do not have an activation code, you will now be asked to enter your information. 5) You will receive an email once your account has been created. If you need technical assistance call [phone] Friday through Friday, 7:30 am to 5:00 pm If you plan to join your [facility]- Video Visit using your personal smartphone or tablet, prior to joining your visit you will need to download the Zoom sloane from the [employer] Store (for iPhone/iPad) or [employer] (for Android). Ifyou already have Zoom downloaded on your device for personal use, you???re good to go! 1. Open the [employer] Store or [employer] Store on your device. 2. Search for Zoom and download the [employer] sloane. ? [employer]ane Store Link: [email or web address]://Digiscend.Deminos/us/sloane/yctr-lmubn-[email or web address] ? [employer] Channel Link: [email or web address]://Rivalroo/store/apps/details?id=us.zoom.videomeetings If you plan to join your [facility]- Video Visit using your computer or laptop, prior to joining your video visit you will need to download Zoom. If you already have Zoom downloaded on your machine for personal use, you???re good to go! 1. Open your web browser (Internet Explorer, Chrome, etc.). 2. Type [email or web address].us and press enter on your keyboard (or click this link: https://zoom.us/). 3. In the top right corner of the webpage, hover over Resources and click Download Zoom Client. 4. Within the Zoom Download Center, find Zoom Client for Meetings and click the associated Downloadbutton. 5. Follow the downloading prompts. 6. Once complete, your computer will have the software necessary to connect to your visit. Note: Subsequent video visits will not require a re-download of Zoom. For phone/tablet: Starting 30 minutes before your appointment, you will find the link to connect to your visit [email or web address] portal. 1. Sign into your [employer] account. 2. Select Appointments. 3. Select your [facility] Video Visit and tap Begin Visit. 4. The Zoom sloane will launch. The ???Waiting for host to start this meeting?? screen will appear and stay until your provider enters the video visit. 5. Once the provider joins the visit you will see your video preview appear. Select Join with Video. 6. You will then be presented with an audio screen. Select Call using Internet Audio. For computer: Starting 30 minutes prior to your scheduled [facility] Video Visit, you will find the link to connect tothe visit within your [employer] portal. 1. Sign into your [employer] account ([employer] portal link: [email or web address]). 2. On the top of the webpage, hover over Visits and select Appointments and Visits. 3. Click the Details button next to your [facility] video visit. 4. Click the Begin Video Visit button. 5. Your computer will open your default web browser. Click Open Zoom Meetings on the pop-up window that appears. 6. The below window will appear and stay until your provider enters the video visit. 7. Once the provider has entered the video visit, you will be prompted with a video preview. Click Join with Video. 8. Connect the audio portion of the visit by clicking the Phone Call button. 9. Dial one of the phone numbers listed and follow the prompts to enter your Meeting ID and Participant ID. Note: the option exists to use your computer for audio, if you choose this option please ensure youare able to confirm your microphone settings are on. General Instructions Diabetes Discharge Instructions & Recommendations Test your blood sugar when you wake up, and before bedtime daily. You were started on insulin in the hospital, and you will continue this at home Continue insulin glargine (Lantus) 10 units daily in the morning. RESTART Metformin XR 500mg twice daily. You may benefit from increased dose of 1000mg twice daily -talk to your diabetes provider about this. Instructions for insulin glargine (Lantus) Insulin (LONG ACTING) Please inject Lantus 10 units every morning. If your fasting blood sugars are above 150mg/dl two days in a row, please increase your Lantus by 1units. If your fasting blood sugars are below 90mg/dl two days in a row, please decrease your Lantus by 1 units. This dose now becomes your new daily dose unless it need to be further adjusted based on future glucose readings. Treatment of Low Blood Sugar (Hypoglycemia) 15:15 rule - if your blood sugars is under 80, eat 15g of sugar, and recheck your blood sugar in 15minutes. If you continue to be under 80 after 15 minutes, eat 15g of sugar more, and repeat. If BG is over 100 on recheck, no need to consume more sugar, and recheck BG in another 15 minutes. If your BG is lower than 80, you are likely to feel shaky, sweaty and lightheaded. This is a signalthat your body needs more sugar. Quickly eat or drink a 15g of something sweet, such as: 4 ounces fruit juice or regular (not diet) soda 6 [employer] small box of raisins 4 glucose tablets (~15 gm of glucose) If your BG is very low <50, you can double the amount above or take 30 gm of glucose gel/tablets. Once you are feeling better, try to determine why your BG was so low. Common causes of hypoglycemiainclude skipping a meal, lots of exercise, too much insulin or any combination of these things. Understanding the cause my help you to avoid another low BG in the future. Test blood sugars prior to driving, make sure glucose levels are greater than 100mg/dl. If not havea snack and retest blood sugars in 15 minutes. Carry a glucose source on you at all times. Call your diabetes provider for blood sugars less than 80 or greater than 300 twice in one day to have your insulin doses adjusted. Future Appointments and Orders Future Appointments and Orders Future Appointments Provider Department Dept Phone 12/29/2023 8:00 AM Esmer Sotomayor APRN Neurology at [facility] Arrive at: [facility] [phone] 03/08/2024 10:00 AM Karthik Domingo MD Gastroenterology at [facility] Arrive at: [facility]L [phone] Primary Care Provider: Bobby Das MD [address] [place] [address] / [place] [id number] Discharge References/Attachments None documented in this encounter Discharge Instructions * Discharge Instructions* Vanna Suarez APRN - 11/12/2023 8:29 AM EST Diabetes Discharge Instructions & Recommendations Test your blood sugar when you wake up, and before bedtime daily. You were started on insulin in the hospital, and you will continue this at home Continue insulin glargine (Lantus) 10 units daily in the morning. RESTART Metformin XR 500mg twice daily. You may benefit from increased dose of 1000mg twice daily -talk to your diabetes provider about this. Instructions for insulin glargine (Lantus) Insulin (LONG ACTING) Please inject Lantus 10 units every morning. If your fasting blood sugars are above 150mg/dl two days in a row, please increase your Lantus by 1units. If your fasting blood sugars are below 90mg/dl two days in a row, please decrease your Lantus by 1 units. This dose now becomes your new daily dose unless it need to be further adjusted based on future glucose readings. Treatment of Low Blood Sugar (Hypoglycemia) 15:15 rule - if your blood sugars is under 80, eat 15g of sugar, and recheck your blood sugar in 15minutes. If you continue to be under 80 after 15 minutes, eat 15g of sugar more, and repeat. If BG is over 100 on recheck, no need to consume more sugar, and recheck BG in another 15 minutes. If your BG is lower than 80, you are likely to feel shaky, sweaty and lightheaded. This is a signalthat your body needs more sugar. Quickly eat or drink a 15g of something sweet, such as: 4 ounces fruit juice or regular (not diet) soda 6 lifesavers small box of raisins 4 glucose tablets (~15 gm of glucose) If your BG is very low <50, you can double the amount above or take 30 gm of glucose gel/tablets. Once you are feeling better, try to determine why your BG was so low. Common causes of hypoglycemiainclude skipping a meal, lots of exercise, too much insulin or any combination of these things. Understanding the cause my help you to avoid another low BG in the future. Test blood sugars prior to driving, make sure glucose levels are greater than 100mg/dl. If not havea snack and retest blood sugars in 15 minutes. Carry a glucose source on you at all times. Call your diabetes provider for blood sugars less than 80 or greater than 300 twice in one day to have your insulin doses adjusted. * Patient Instructions* Esmer Sotomayor APRN - 11/08/2023 3:18 PM EST Images from the original note were not included. Patient Instructions: You were admitted to the neurology service at [facility] Your Diagnosis: Ischemic Stroke - Work close with your primary care provider (PCP) with monitoring your blood pressure, blood sugarand cholesterol. - Lifestyle modifications should include: taking all medications as prescribed, smoking cessation or staying away from others who are smoking to avoid second hand smoke, limiting alcohol intake, maintaining a normal/healthy weight, adhering to a healthy diet (low-fat, low-sodium, high intake of fresh fruits and vegetables, limiting red meat), and engaging in regular physical activity. - -Continue Eliquis 2.5mg BID for atrial fibrillation -Continue Rosuvastatin 40mg for secondary stroke risk reduction -Goal blood pressure normotension -Follow up with stroke neurology requested day of discharge Call 911 or your local EMS if you have sudden weakness or numbness in your face or one of your limbs, slurred speech, loss of vision, or difficulty speaking. It is important to seek medical attentionas soon as possible, as these symptoms could be related to a new stroke. Diet: we recommend a heart healthy diet: low fat, low cholesterol, low concentrated sweets. Activity Restrictions: As tolerated. Driving Restrictions: No driving until cleared by a provider. Diabetes Follow-up and Instructions: 1. Continue to monitor your blood glucose (BG), also called blood sugar, with the goal of before-meal BG of 100 - 120 and after-meal BG of lower than 180. If you often have BG's lower than 80 or higher than 250, call your Health Care Provider. Your HbA1c target is less than 7.0%. 2. Know your cholesterol levels and the goal you are striving for. Your goal LDL is <100. 3. Continue to try eating healthy, which includes a low fat, low cholesterol, high fiber, no added sweets diet. 4. Exercising regularly is important. The goal for most people is 30 minutes of exercise, 3-4 timesper week. 30 minutes of exercise 5 days per week, never going more than 2 days in a row without exercise. Check with your Health care Provider for specific guidelines. 5. Monitor blood pressure weekly: Goal for most patients is 130/80 mm?Hg. Check with your Health Care Provider for specific guidelines. Continue to take all medications daily. 6. Remember to have an annual ophthalmic (eye) examination 7. Remember to have a quarterly foot examination done by your Health care provider. 8. Ask your Health care Provider about annual screening for urine micro-albumin. 9. Please plan quarterly follow-up visits for diabetes management with your Health care Provider. 10. Consider Diabetes Education in your community. The more you know about your diabetes, the better the decisions you will make every day. Know Your Numbers! Blood Pressure BP Readings from Last 3 Encounters: 11/08/23 106/65 10/22/23 98/52 12/12/22 114/62 HA1C Lab Results Component Value Date HA1C 7.7 (H) 11/06/2023 Cholesterol Lab Results Component Value Date CHLPL 192 11/06/2023 HDL 61 11/06/2023 CHOLHDL 3.1 11/06/2023 LDLDIRECT 112 11/06/2023 Below is an explanation of each of the cholesterol test results. Total cholesterol: This test is best when below 200. It can be improved primarily by a low fat diet. HDL (good cholesterol): The higher the better. It is best when above 50. It is primarily genetically determined but can be increased with exercise. LDL (bad cholesterol): this test is best when below 130 (or below 100 if you have heart disease or below 70 if you have had a stroke or TIA). It can be lowered by a low fat diet. Triglycerides: This test is best when below 180. It can be lowered by a low fat diet, avoidance of sweets and weight loss. Follow-up: Neurology: You will have a follow-up appointment in the neurology clinic at [facility]. See below for the appointment time. If you do not have an appointment, you will be called with a time/date for this appointment. NOTE: In an effort to reduce possible exposure to COVID-19, some clinic appointments are being conducted via telehealth with video. We will do our best to accommodate the best visit type, either in-person or via telehealth depending on each unique patient situation. Of note, if you consent to a telehealth encounter in lieu of face to face visit, you understand the visit may be billed similar to a regular [id number] clinic visit. Primary Care Provider: Please follow up with your Primary Care Provider within one to 2 weeks of discharge. For questions regarding this document or issues relating to this hospitalization on the Neurology Service, please contact the author(s) of this discharge summary through the [facility] [employer] . If you need to cancel or reschedule, please call Dept: [phone] as soon as possible. This is helpful to us and other waiting patients. IF FOLLOW UP VISIT WITH STROKE TEAM IS NEEDED IN FORM OF TELEHEALTH: Please ensure you have an active [employer] account and are familiar with it. Also, please ensure an active email address. To sign up for a [employer] account, Visit the [email or web address] website and 1) choose ???create an account?? 2) enter your date of 3) You will be asked if you have an activation code. If you have an activation code, click the ???yes?? button. If you do not have a code, click the ???no?? button. 4) If you do not have an activation code, you will now be asked to enter your information. 5) You will receive an email once your account has been created. If you need technical assistance call [phone] Friday through Friday, 7:30 am to 5:00 pm If you plan to join your [facility] Video Visit using your personal smartphone or tablet, prior to joining your visit you will need to download the Zoom sloane from the [employer] Store (for iPhone/iPad) or [employer] (for Android). Ifyou already have Zoom downloaded on your device for personal use, you???re good to go! 1. Open the [employer] Store or [employer] Store on your device. 2. Search for Zoom and download the [employer] Meetings sloane. ? [employer] Link: [email or web address]/sloane/mhvv-[email or web address]-[email or web address] ? [employer] Link: [email or web address]/apps/details?id=us.zoom.videomeetings If you plan to join your [facility] Video Visit using your computer or laptop, prior to joining your video visit you will need to download Zoom. If you already have Zoom downloaded on your machine for personal use, you???re good to go! 1. Open your web browser (Internet Explorer, Chrome, etc.). 2. Type zoom.us and press enter on your keyboard (or click this link: https://zoom.us/). 3. In the top right corner of the webpage, hover over Resources and click Download Zoom Client. 4. Within the Zoom Download Center, find Zoom Client for Meetings and click the associated Downloadbutton. 5. Follow the downloading prompts. 6. Once complete, your computer will have the software necessary to connect to your visit. Note: Subsequent video visits will not require a re-download of Zoom. For phone/tablet: Starting 30 minutes before your appointment, you will find the link to connect to your visit withinyour [employer] portal. 1. Sign into your [employer] account. 2. Select Appointments. 3. Select your [facility] Video Visit and tap Begin Visit. 4. The Zoom sloane will launch. The ???Waiting for host to start this meeting?? screen will appear and stay until your provider enters the video visit. 5. Once the provider joins the visit you will see your video preview appear. Select Join with Video. 6. You will then be presented with an audio screen. Select Call using Internet Audio. For computer: Starting 30 minutes prior to your scheduled [facility] Video Visit, you will find the link to connect tothe visit within your [employer] portal. 1. Sign into your [employer] account ([employer] portal link: [email or web address]). 2. On the top of the webpage, hover over Visits and select Appointments and Visits. 3. Click the Details button next to your [facility] video visit. 4. Click the Begin Video Visit button. 5. Your computer will open your default web browser. Click Open Zoom Meetings on the pop-up window that appears. 6. The below window will appear and stay until your provider enters the video visit. 7. Once the provider has entered the video visit, you will be prompted with a video preview. Click Join with Video. 8. Connect the audio portion of the visit by clicking the Phone Call button. 9. Dial one of the phone numbers listed and follow the prompts to enter your Meeting ID and Participant ID. Note: the option exists to use your computer for audio, if you choose this option please ensure youare able to confirm your microphone settings are on. documented in this encounter Medications at Time of Discharge Medication Sig Dispensed Refills Start Date End Date metFORMIN XR (Glucophage XR) 500 mg ER 24 hr tablet Take 1 tablet by mouth 2 times daily. 11/12/2023 Lantus Solostar U-100 Insulin 100 unit/mL (3 mL) penIndications:type 2 diabetes mellitus Inject 10 Units subcutaneously daily. Indications: type 2 diabetes mellitus 11/12/2023 insulin needles, disposable, 32 gauge x 5/32 NeedleIndications:umu betes mellitus Inject 1 each subcutaneously daily. Indications: diabetes 11/12/2023 insulin glargine-yfgn (Semglee) 100 unit/mL Solution Inject 10 Units subcutaneously daily. 11/12/2023 insulin lispro (HumaLOG) 100 unit/mL Solution Inject 0-8 Units subcutaneously 3 times daily (with meals). 11/12/2023 insulin lispro (HumaLOG) 100 unit/mL Solution Inject 1-4 Units subcutaneously every 4 hours. 11/12/2023 melatonin 3 mg tablet Take 1 tablet by mouth nightly. 11/12/2023 metoproloL tartrate (Lopressor) 25 mg tablet Take 0.5 tablets by mouth 2 times daily. 11/12/2023 pantoprazole EC (Protonix) [address] tablet Take 1 tablet by mouth 2 times daily. 11/12/2023 traZODone (Desyrel) 50 mg tablet Take 1 tablet by mouth nightly as needed for Sleep (if melatonin ineffective). 11/12/2023 tretinoin (RETIN-A) 0.025 % Cream Apply topically nightly. 45 g 07/28/2023 apixaban (Eliquis) 2.5 mg Tablet Take 1 tablet by mouth 2 times daily. 60 tablet 3 12/12/2022 fluticasone propionate (FLONASE) 50 mcg/actuation [place], Suspension 1 spray by Each Nare route daily as needed. 04/12/2021 fluorouraciL (EFUDEX) 5 % Cream daily. 04/12/2021 carboxymethylcellulos e (REFRESH PLUS) 0.5 % Dropperette Apply to eye 3 times daily as needed. tamsulosin (FLOMAX) 0.4 mg Capsule Take 0.4 mg by mouth daily. CRESTOR 40 mg Tablet Take 40 mg by mouth daily. 09/13/2016 MULTIVITAMIN (MULTIPLE VITAMIN ORAL) Take 1 tablet by mouth daily. documented as of this encounter Progress Notes * Hilton Somers - 11/12/2023 10:07 AM EST Office of Care Management/Insurance Sales Associate Patient Name: Koko Zamora : 1940 Patient has been offered an acute rehab bed at [facility] for today, 11/12/23 Patient to transport to facility via private car around 10:30 No MD to MD report necessary Dr. Zaman to admit Please call Nursing Report to , ask for child development assistant. Info to accompany patient: Copies of Medication Administration Records and IV sheets for past 10 days. Plan: Insurance Sales Associate will be available to the patient and Costume Shop Coordinator-RN and/or Social Workerfor further assistance. Patient will be discharged to: [facility] Hilton Somers, Insurance Sales Associate * Luann Sylvester SLP - 11/12/2023 10:05 AM EST Speech Therapy Note Patient Profile: Koko Zamora is a 83yo male with a PMHx of permanent AFIB (on Eliquis though held after dose 11/01), TII DM, CAD s/p stenting May (on Plavix), HLD, HFrEF, MV repair for mitral valve prolapse in 2000, prior GIB on ASA (iso duodenal and colonic angiectasias), PAD (s/p LLE ACLI s/p embolectomy with 4 compartment fasciotomy), and basal cell carcinoma who presented to the ED as a stroke alert for acute onset of R sided weakness, AMS, and aphasia, now s/p tPA. 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 RUBBER CALENDER HELPER was consulted as stroke protocol. Interval History: n/a; planning for discharge to [place] this morning Prior Level of Function: (From initial RUBBER CALENDER HELPER bedside evaluation 11/07/23): Patient reports chronic dysphagia symptoms following an EGD in June 2022, including feelings of stasis in his upper chest with tough, chewy solids. He denies dysphagia to liquids. Patient denies history of speech or language difficulty. Subjective: pt in bed with breakfast; and RN present; easily distracted re: communication breakdown rationale Objective: Pt seen for dysphagia management and demonstrated the following: Pain: pt does not appear to be in overt pain/discomfort Respiratory Status: Room air Current Diet: Carb Control diet 60/60/75 CHO counting level 2 regular/thin Feeding / Oral Care Status: Pt is independent Cognitive-Linguistic Status: Fully Conscious: Awake, alert, oriented x3, comprehends spoken or written words, follows commands; expressive>receptive aphasia Improved word-finding; pauses and utterance abandonment No paraphasias noted in limited assessment Able to express wants and needs to medical team per pt Pt and both report subjective improvements in expressive language Pt and both deny any significant receptive deficits Pt reports being easily distracted; communication breakdown occurred when there were auditory and visual distractions present (ex. Roommate and visitor talking, TV on, entering room) Positioning: HOB at 60 degrees Bolus Presentation(s): Dysphagia soft Regular solid Oral Preparatory Phase: WFL; prolonged but functional mastication; adequate bolus cohesion and A-P propulsion; prompt swallow initiation, no oral residue noted post swallow. Pharyngeal Phase: appears WFL, swallow appears prompt, distinct, and complete; no coughing, throat clearing, changes in voice or respiratory status noted; pt denies globus sensation and swallows x1-2for each bite and sip Esophageal Phase: no overt s/sx esophageal dysphagia with limited trials Education: Pt and educated on role of RUBBER CALENDER HELPER, RUBBER CALENDER HELPER services at discharge location, and progressionthus far re: swallow/language; both denied further questions. Assessment: Pt was seen today for a follow-up RUBBER CALENDER HELPER visit. Pt with subjective improvements in expressive language with continued intermittent word-finding difficulty. Pt and report that his word-finding has become less frequent and they deny difficulties with comprehension at this time. He reports difficulty with attention; likely a component of attention playing a role in communication breakdowns. Pt would benefit from more comprehensive language evaluation at discharge location to guide intervention of expressive aphasia components. Po trials included breakfast meal tray items. No overt s/sx aspiration observed at bedside. He denied self-perceived difficulty over the past few days. Pt is judged to be safe and appropriate for least restrictive regular solid/thin liquid diet- he has met his speech therapy goals from a swallowingstandpoint. Pt will benefit from continued therapeutic interventions to achieve speech therapy goals while hospitalized and at discharge location ([facility]). Diagnosis: Functional-appearing oropharyngeal swallow, suspected esophageal dysphagia (chronic), aphasia (acute, expressive>receptive) Recommendations: Diet: Regular solids, Thin liquids PO Medications: whole with sip of liquid Aspiration Precautions: Sit upright with meals Slow rate; small bites and sips Alternate liquids and solids Excellent oral care to reduce risk of aspiration pneumonia Communication Recommendations: Encourage all forms of communication (pointing, gestures and verbalizations) Decrease environmental distractions when communicating with patient Face patient when communicating with them Provide simple yes/no questions Provide no more than one-step directives, demonstrate/gesture when possible Allow extra time for patient to respond before repeating/rephrasing Attempt to validate patient's understanding Provide breaks as patient may fatigue easily Pt will benefit from continued RUBBER CALENDER HELPER services while hospitalized. Speech Therapy Goals: Pt will tolerate the least restrictive diet without further respiratory decompensation. MET Pt will be independent with aspiration precautions. MET Pt will participate in ongoing cognitive-linguistic assessment as indicated Plan: Therapy Frequency (RUBBER CALENDER HELPER Eval): 2-3 times/wk Pt./family are in agreement with treatment plan. Total Minutes (Speech Language Pathology): 12 Thank you for this consult with this patient. Please feel free to message me with any questions or concerns. Luann Sylvester MS, CFY-RUBBER CALENDER HELPER Speech-Language Pathologist Clinical Fellow Inpatient Rehabilitation Pager # [phone] * Vanna Suarez APRN - 11/12/2023 9:20 AM EST Images from the original note were not included. Glucose Management Team Inpatient Progress Note HPI Koko Zamora is a 83 y.o. male from [place], [place] with PMH significant for atrial fibrillation,Type 2 DM, CAD, HLD, heart failure who was admitted on 11/06/2023 currently being treated for acutestroke. Original consult completed: 11/09/2023 Patient Interview & Updates Koko is leaving to [facility] re[facility] today at 1030. He will be going home new to insulin, and will need insulin training before going home. Objective Temp: [36.2 ??C (97.2 ??F)-37.4 ??C (99.3 ??F)] Heart Rate: -- Resp: [16-18] BP: (92-119)/(60-77) SpO2: [92 %-99 %] Heart Rate from SpO2: [62 bpm-105 bpm] Wt Readings from Last 3 Encounters: 11/12/23 69.5 kg (153 lb 3.2 oz) 11/06/23 72.6 kg (160 lb 0.9 oz) 10/22/23 72.6 kg (160 lb) Current Regimen Insulin glargine:10 units daily Lispro 1:10 insulin to carbohydrate ratio Lispro Correction: Sensitive 1:40 correction for BG >160 Relevant meds: none TDD: 1/2: 21u (10u basal, 8u meal, 3u correction) 1/: 20u (10u basal, 8u meal, 2u correction) Recent Glucose Levels Recent Labs 11/12/23 0746 11/12/23 0357 11/11/23 2333 11/11/23 2026 11/11/23 1552 11/11/23 1144 11/11/23 0613 11/11/23 0359 11/10/23 2306 11/10/23 2016 11/10/23 1558 11/10/23 1144 POCGLU 140 157 138 149 228* 150 142 198 134 152 150 180 ASSESSMENT Koko is a 83 y.o. years old male with PMH significant for DM (Last A1C of 7.7% 11/06/2023) who was admitted on 11/06/2023 for acute stroke. Diabetes adequately controlled and currently complicated by acute stroke. Currently with variability of blood glucose levels while hospitalized requiring adjustment of insulin regimen and DM medications. Koko continues to be stable overall on basal insulin with some bolus for meals and correction. Based on age, A1c, and comorbidities, it would be prudent to send Koko to rehab and the home with basal insulin, but do not recommend home with lispro. He will be restarting his Metformin to help withdaytime blood sugars, and his outpatient provider may consider starting DPP-4 or SGLT-2i for further daytime support rather than adding short-acting insulin. Team updated with recommendations, DC instructions in MDI, Rx for Metformin and Lantus pended. PLAN Insulin glargine:10 units daily Lispro 1:10 insulin to carbohydrate ratio Lispro Correction: Sensitive 1:40 correction for BG >160 Diet: Carb Controlled 60/60/75g Monitoring: BG Q4 Discharge Planning/intermediate frame tender diabetes care: Medications - Outpatient treatment regimen recommendations pending based on the hospital course. Metformin only Consider home with Lantus based on hospital needs Monitoring - continue BG tid ac & hs Diet - low fat/low carb diet Exercise - weight-bearing exercise 30 min/day, as tolerated 35 minutes were spent over the course of the day with this patient encounter including time spent in chart review and relevant lab result review, assessment of and counseling with the patient on diabetes and treatment plan, reviewing all glucose and insulin data, and coordination with the consulting service. Vanna Suarez APRN, DNP, -[facility] Inpatient Diabetes Management Team Team pager #[phone] Diabetes Discharge Instructions & Recommendations Test your blood sugar when you wake up, and before bedtime daily. You were started on insulin in the hospital, and you will continue this at home Continue insulin glargine (Lantus) 10 units daily in the morning. RESTART Metformin XR 500mg twice daily. You may benefit from increased dose of 1000mg twice daily -talk to your diabetes provider about this. Instructions for insulin glargine (Lantus) Insulin (LONG ACTING) Please inject Lantus 10 units every morning. If your fasting blood sugars are above 150mg/dl two days in a row, please increase your Lantus by 1units. If your fasting blood sugars are below 90mg/dl two days in a row, please decrease your Lantus by 1 units. This dose now becomes your new daily dose unless it need to be further adjusted based on future glucose readings. Treatment of Low Blood Sugar (Hypoglycemia) 15:15 rule - if your blood sugars is under 80, eat 15g of sugar, and recheck your blood sugar in 15minutes. If you continue to be under 80 after 15 minutes, eat 15g of sugar more, and repeat. If BG is over 100 on recheck, no need to consume more sugar, and recheck BG in another 15 minutes. If your BG is lower than 80, you are likely to feel shaky, sweaty and lightheaded. This is a signalthat your body needs more sugar. Quickly eat or drink a 15g of something sweet, such as: 4 ounces fruit juice or regular (not diet) soda 6 lifesavers small box of raisins 4 glucose tablets (~15 gm of glucose) If your BG is very low <50, you can double the amount above or take 30 gm of glucose gel/tablets. Once you are feeling better, try to determine why your BG was so low. Common causes of hypoglycemiainclude skipping a meal, lots of exercise, too much insulin or any combination of these things. Understanding the cause my help you to avoid another low BG in the future. Test blood sugars prior to driving, make sure glucose levels are greater than 100mg/dl. If not havea snack and retest blood sugars in 15 minutes. Carry a glucose source on you at all times. Call your diabetes provider for blood sugars less than 80 or greater than 300 twice in one day to have your insulin doses adjusted. * Esmer Sotomayor APRN - 11/12/2023 8:12 AM EST Images from the original note were not included. VASCULAR NEUROLOGY DAILY PROGRESS NOTE Admit Date 11/06/2023 Responsible Attending: Galilea Fournier MD Primary Provider: Bobby Das MD [phone] Hospital Day: Hospital Day: 7 Patient ID 83 y.o. male with PMHx of permanent AFIB (on Eliquis though held after dose 11/01), TII DM, CAD s/pstenting May (on Plavix), HLD, HFrEF, MV repair for mitral valve prolapse in 2000, prior GIB on ASA (iso duodenal and colonic angiectasias), PAD (s/p LLE ACLI s/p embolectomy with 4 compartment fasciotomy), and basal cell carcinoma who presented to the ED as a stroke alert for acute onset of Rsided weakness, AMS, and aphasia, now s/p tPA. 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 24hr Events: - HR up to 130 over night, but not sustained and no PRNs needed - Labs stable -awake in bed this morning EXAM Last value Range last 24 hrs Temperature Temp: 37 ??C (98.6 ??F) Temp: [36.2 ??C (97.2 ??F)-37.4 ??C (99.3 ??F)] Heart Rate Heart Rate: (!) 104 Heart Rate: -- Blood Pressure BP: 119/75 BP: (92-119)/(60-77) Respiratory Rate Resp: 18 Resp: [16-18] SpO2 SpO2: 99 % SpO2: [92 %-99 %] GEN- Awake/alert, oriented to age and month, following simple commands and cross body commands, there is some loss of fluency of speech, mild to moderate dysarthria, naming intact today (glove, cactus, diaz, chair), unable to name hammock-net CN- Pupils miotic and L slightly smaller vs the R but both reactive, VFFTC, EOMI, R facial droop, tongue midline MOTOR- RUE/RLE some drift though much improved, No drift in LUE/LLE SENSATION - intact and symmetric to LT in BUE/BLE without evidence of sensory extinction CEREBELLUM - FTN intact and HTS intact DATA I/O last 3 completed shifts: In: 1240 [P.O.:1240] Out: 2350 [Urine:2350] Labs Recent Labs 11/12/23 0604 11/11/23 0445 11/10/23 0505 11/09/23 0618 11/08/23 0227 WBC 7.0 7.4 7.9 9.0 10.0* HGB 16.4 15.8 16.1 16.3 15.6 HCT 47.4 46.0 46.1 47.1 45.3 PLATELET 133* 138* 135* 130* 152 NEUTROABS 4.60 5.02 5.43 6.30* 7.19* Recent Labs 11/12/23 0604 11/11/23 0445 11/10/23 0505 11/09/23 0618 11/08/23 0227 NA 139 139 141 140 142 K 4.1 3.9 4.2 4.0 4.2 CL 104 103 104 105 107 CO2 23 25 25 24 23 BUN 24* 20 23* 22* 26* CREATININE 0.87 0.79* 0.97 0.74* 0.88 GLUCOSE 159 206* 141 167 229* Recent Labs 11/12/23 0604 11/11/23 0445 11/10/23 0505 CALCIUM 9.0 9.1 9.1 MAGNESIUM 0.84 0.86 0.90 PHOS 2.8 2.8 3.4 No results for input(s): AST, ALT, ALKPHOS, BILITOT, BILIDIR, LDH in the last 168 hours. No results for input(s): TROPONINT, CK in the last 168 hours. No results for input(s): PHART, WBU1OSW, PO2ART, JLR7YLY in the last 168 hours. No results for input(s): INR in the last 72 hours. Lipid Panel Lab Results Component Value Date CHLPL 192 11/06/2023 HDL 61 11/06/2023 CHOLHDL 3.1 11/06/2023 LDLDIRECT 112 11/06/2023 Lab Results Component Value Date HA1C 7.7 (H) 11/06/2023 Micro - cultures/sensitivities UCx - None CSF - None Blood Cx - None Resp Cx - None Imaging/EKG Results for orders placed or performed during the hospital encounter of 11/06/23 XR Chest AP and Pelvis AP Trauma (Generic) (Exam End: 11/06/2023 10:08 AM) Impression No acute radiographically evident abnormality in the visualized chest or pelvis. I have personally reviewed the image(s) and the resident's interpretation and agree with the findings, Robyn Najera MD at 11/06/2023 11:47 AM Thank you for letting us participate in the care of this patient. If you are a health care provider and have any questions regarding this report, please contact the number below. For patients who have questions please contact the health health care attorney that requested your imaging first. Head wo & Multiphase CTA Head/Neck (THROMBECTOMY PROTOCOL) (Exam End: 11/06/2023 10:40 AM) Impression 1. No acute intracranial hemorrhage. 2. Occlusion of the left pericallosal BRUCE. 3. 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 4. Severe stenosis of the left ICA origin. 5. Severe stenosis of the right vertebral artery origin. 6. Remote left inferior frontal infarcts. Thank you for letting us participate in the care of this patient. If you are a health care provider and have any questions regarding this report, please contact the number below. For patients who have questions please contact the health health care attorney that requested your imaging first. Cervical Spine Reconstruction (Exam End: 11/06/2023 10:40 AM) Impression 1. No acute fracture or malalignment. 2. Diffuse osseous demineralization and multilevel degenerative changes throughout the spine as described. I have personally reviewed the image(s) and the resident's interpretation and agree with the findings, Edson aDnielle DO at 11/06/2023 11:29 AM Thank you for letting us participate in the care of this patient. If you are a health care provider and have any questions regarding this report, please contact the number below. For patients who have questions please contact the health health care attorney that requested your imaging first. Chest Abdomen Pelvis w Contrast (Generic) (Exam End: 11/06/2023 10:40 AM) Impression No evidence of acute thoracic or abdominal pathology. Thank you for letting us participate in the care of this patient. If you are a health care provider and have any questions regarding this report, please contact the number below. For patients who have questions please contact the health health care attorney that requested your imaging first. Thoracic Spine Reconstruction (Exam End: 11/06/2023 10:40 AM) Impression 1. No acute fracture or malalignment. 2. Diffuse osseous demineralization and multilevel degenerative changes throughout the spine as described. I have personally reviewed the image(s) and the resident's interpretation and agree with the findings, Edson Danielle DO at 11/06/2023 11:29 AM Thank you for letting us participate in the care of this patient. If you are a health care provider and have any questions regarding this report, please contact the number below. For patients who have questions please contact the health health care attorney that requested your imaging first. Lumbar Spine Reconstruction (Exam End: 11/06/2023 10:40 AM) Impression 1. No acute fracture or malalignment. 2. Diffuse osseous demineralization and multilevel degenerative changes throughout the spine as described. I have personally reviewed the image(s) and the resident's interpretation and agree with the findings, Edson Danielle DO at 11/06/2023 11:29 AM Thank you for letting us participate in the care of this patient. If you are a health care provider and have any questions regarding this report, please contact the number below. For patients who have questions please contact the health health care attorney that requested your imaging first. Shoulder Right (Generic) (Exam End: 11/06/2023 11:54 AM) Impression No acute fracture or dislocation Thank you for letting us participate in the care of this patient. If you are a health care provider and have any questions regarding this report, please contact the number below. For patients who have questions please contact the health health care attorney that requested your imaging first. Electronically signed by: Shannen Sánchez MD, [facility] ([phone]), at 11/06/2023 12:02 PM XR Elbow 3 Views Right (GENERIC) (Exam End: 11/06/2023 11:54 AM) Impression 1. No acute fracture. 2. Normal osseous alignment 3. No elbow effusion. Thank you for letting us participate in the care of this patient. If you are a health care provider and have any questions regarding this report, please contact the number below. For patients who have questions please contact the health health care attorney that requested your imaging first. Electronically signed by: Shannen Sánchez MD, [facility] ([phone]), at 11/06/2023 12:00 PM XR Wrist 3 Views Right (Exam End: 11/06/2023 11:54 AM) Impression 1. No acute fracture. 2. Normal osseous alignment 3. No elbow effusion. Thank you for letting us participate in the care of this patient. If you are a health care provider and have any questions regarding this report, please contact the number below. For patients who have questions please contact the health health care attorney that requested your imaging first. Electronically signed by: Shannen S[facility]chez [facility] ([phone]), at 11/06/2023 12:00 PM XR Knee 1-2 Views Right (Generic) (Exam End: 11/06/2023 11:54 AM) Impression 1. 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 2. Small effusion without lipohemarthrosis 3. No acute fractures seen. Thank you for letting us participate in the care of this patient. If you are a health care provider and have any questions regarding this report, please contact the number below. For patients who have questions please contact the health health care attorney that requested your imaging first. Electronically signed by: Shannen Sánchez [facility] ([phone]), at 11/06/2023 11:57 AM MRI Brain wo Contrast (Exam End: 11/06/2023 10:08 PM) Impression 1. Acute infarct in the left superior frontal gyrus, compatible with a left BRUCE territory infarct. No associated hemorrhage 2. Additional punctate foci of restricted diffusion, in the right precentral gyrus, bilateral lateral inferior frontal gyri and left centrum semiovale, compatible with punctate embolic infarcts. 3. No evidence of associated hemorrhagic conversion. Thank you for letting us participate in the care of this patient. If you are a health care provider and have any questions regarding this report, please contact the number below. For patients who have questions please contact the health health care attorney that requested your imaging first. Head wo Contrast (Generic) (Exam End: 11/07/2023 11:17 AM) Impression Localized left BRUCE infarct primarily involving the superior frontal gyrus as above without evidence of significant mass effect or hemorrhage. Thank you for letting us participate in the care of this patient. If you are a health care provider and have any questions regarding this report, please contact the number below. For patients who have questions please contact the health health care attorney that requested your imaging first. Electronically signed by: Edson Danielle [facility] ([phone]), at 11/07/2023 2:19 PM MRI Brain wo Contrast (Exam End: 11/08/2023 1:19 PM) Impression No definitive interval infarct. There are more conspicuous small foci of diffusion restriction along the anterior left cingulate gyrus. 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 Few punctate foci of diffusion restriction again noted over the frontal convexities. Thank you for letting us participate in the care of this patient. If you are a health care provider and have any questions regarding this report, please contact the number below. For patients who have questions please contact the health health care attorney that requested your imaging first. Electronically signed by: Edson Danielle [facility] ([phone]), at 11/08/2023 1:34 PM ASSESSMENT & PLAN Koko Zamora is an 83 y.o. male with PMHx of permanent AFIB (on Eliquis though held after dose11/01), TII DM, CAD s/p stenting May (on Plavix), HLD, HFrEF, MV repair for mitral valve prolapse in 2000, prior GIB on ASA (iso duodenal and colonic angiectasias), PAD (s/p LLE ACLI s/p embolectomy with 4 compartment fasciotomy), and basal cell carcinoma who presented to the ED as a stroke alert for acute onset of R sided weakness, AMS, and aphasia, now s/p tPA. 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 11/12/23 - Neurological and medical exam stable. Eliquis was started yesterday yesterday at reduceddose. Patient meets criteria for full dose anticoagulation, but he and his refuse full dose. Risk discussed with patient of stroke for not on full dose anticoagulation. Due for a bowel movement,scheduled and PRN medications are available. Koko remains medically ready for discharge and will discharge today to acute patient rehab. #L BRUCE territory infarct and small foci of R hemispheric infarct iso holding AC for upcoming Watchmen procedure -s/p tpa (given at 1101 on 11/06) -floor level of care -VS / NC q4h -SBP goal <180 (PRN labetalol, vasotec) -Plavix load 300 mg (11/07) followed by 75 mg daily for now- stopped 11/11 due to patient preference and concern for GIB -Eliquis 2.5mg BID resumed 11/10 - -continue home crestor 40 mg daily -CTH/CTA as above -MRI brain wo as above and repeat MRI without new infarct. 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 - Start Metoprolol 12.5mg Q6Hrs today. - Eliquis 2.5 mg BID (reduced dose given prior GIB) - holding home tretinoin cream - tamsulosin 0.4 mg daily - PRN tylenol #Routine: Diet: Carb Control diet 60/60/75 CHO counting level 2 DVT Ppx: lovenox 40 mg nightly Last Bowel Movement: 11/10/23 Code status: Attempt Cardiopulmonary Resuscitation - Inpatient Patient Lines/Drains/Airways Status Active Tubes/Lines/Drains Name Placement date Placement time Site Days PIV 11/11/23 1312 22 gauge;1.75 in length cephalic vein (lateral side of arm), left 11/11/23 1312 -- 1 External Catheter 11/11/23 1601 11/11/23 1601 -- 1 Please page Vascular Neurology with any questions, #[phone] Esmer Sotomayor APRN Department of Neurology [place] [phone] * Soila Molina RN - 11/11/2023 3:41 PM ESTSummary: IRVING PLANNING Pt has been accepted to [facility] for acute rehab for 11/12/23. Pt's will transport to [facility] on 11/12/23 at 10:30am. Team is aware. Soila Molina MSN-Ed, RN ACM management trainee marketing Office of Care Management Pager #[phone] * Alda Mejia, PT - 11/11/2023 1:52 PM EST Physical Therapy Note (P) 2 Patient profile: Koko Zamora is a 83 y.o. with PMH of permanent AFIB (on Eliquis though held after dose 11/01), TII DM, CAD s/p stenting May (on Plavix), HLD, HFrEF, MV repair for mitral valve prolapse in 2000, prior GIB on ASA (iso duodenal and colonic angiectasias), PAD (s/p LLE ACLI s/p embolectomy with 4 compartment fasciotomy), and basal cell carcinoma who presented to the ED as astroke alert for acute onset of R sided weakness, AMS, and aphasia. Interval History: NAEO. Feels his strength is improving and feeling better overall, though still having aphasia. - Continues to have soft blood pressures. Labs largely unremarkable. Social History: will need to confirm and gather additional details d/t aphasia Home set-up: Pt lives with his Lesly in a multi-level home in [place], [place]. All of his needs are met on the first floor. Stairs: 5STE Baseline Mobility: Pt is typically independent with ADLs, IADLs, and mobility at baseline. He ambulates without a device, drives, and is retired. Equipment at home: unknown Fall history: fall at time of admission Precautions/Special Considerations: at risk to fall, SBP <180, expressive aphasia Lines: PIV, telemetry Activity Orders: up with assistance Diet: carb control Mobility and Positioning Recommendations: Pt. to utilize 2 assist for stand-pivot transfers with nursing. Please encourage up to chair for meal times as able. Subjective: Pt agreeable to PT session. Pt was able to indicate lightheadedness when initially sitting up. Pt was able to indicate dizzy/room spinning after laying down with (+) nystagmus. Objective: Patient seen for physical therapy and demonstrated the following: Pain: None Vital Signs: WFL/stable Cognition/Vision: Expressive aphasia; grossly WFL Bed Mobility: Supine to Sit: contact guard assist Sit to Supine: minimum assist w/ his R LE, as well as VC's to pull his R UE in the bed. Transfers: Sit to Stand: contact guard assist, minimum assist using no assistive device Stand to Sit: contact guard assist using no assistive device Bed to Chair: N/A using no assistive device Gait: Distance: 20' with RW (requiring min-a to reinforce R UE on walker) and 20' without an AD with min-a for navigation and VC's to increase his R foot step length. Level of assist: minimum assist Gait mechanics: R sided inattention running into objects, decreased R LE foot clearance and step length. Stairs: NA Balance: Sitting Static: Good Sitting Dynamic: Fair Standing Static: Fair Standing Dynamic / Gait: Poor Pt left supine in bed, with all needs met, with call boo in reach, and with bed alarm active following visit. Assessment: Koko Zamora was seen today for physical therapy treatment session for continuation of POC. Pt is progressing towards established goals, with improved tolerance for gait assessment. Pt with marked deviations when ambulating due to his R hemibody deficits, with slight improvement instep length using a RW, however with increased assist to maintain R UE on walker and increased instances of running into objects due to R inattention. Pt did have (+) nystagmus after completing sit-supine on a flat bed going towards his R, with pt reporting the room was spinning; it was slightly delayed after laying flat. Pt was able to indicate that he normally sleeps on his L and per chart review there might have been an instance of him hitting his head when he had his stroke. Will continue to monitor for vestibular dysfunction and provide strategies as needed. Pt will benefit from ongoing therapeutic interventions to achieve therapy goals. Inpatient Physical Therapy Plan: (P) 2-4 times/wk for therapy including balance training, bed mobility training, gait training, patient/family education, postural re-education, stair training, strengthening, and transfer training. Patient/family understand and agree with plan as stated above. Discharge Recommendations: Based on current findings- (P) acute rehabilitation facility Consult Recommendations: No other consults recommended at this time. Equipment needs: (P) to be determined Physical Therapy Goals: To be achieved by 11/21/23: Pt. to demonstrate knowledge of safety limitations and precautions and will appropriately request assistance for functional activities and to mobilize. PROGRESSING Pt. to perform bed mobility with supervision. PROGRESSING Pt. to perform sit<>stand transfers with supervision using LRAD. PROGRESSING Pt. to ambulate 50 feet with supervision using LRAD. PROGRESSING Family or caregiver to demonstrate understanding of therapeutic interventions to support the care of the patient. PROGRESSING Pt will tolerate progression towards upright with stable vital signs. MET Total Time: (P) 18 (1:23-1:41) minutes; (P) Gait x1 Alda Mejia PT Physical Therapy Inpatient Rehabilitation Department * Soila Molina RN - 11/11/2023 12:32 PM EST Based on discussions with the multi-disciplinary healthcare team, the patient would benefit from Acute Rehab level of care at discharge. I have met with the desk representative to: discuss discharge planning needs. provide the [facility], Office of Care Management letter from the [employer] pertaining to rehab referrals. provide a letter describing our affiliations within the [facility] and educate about their right to choose where referrals are sent. provide the [facility] Star Quality Rating handout. review the different levels of rehab including SNF, swing, and acute. provide a list of facilities within their preferred geographic area. request that they provide at least three choices for referral. They have requested referrals to: [facility] [address] [place] [id number] [facility] [address] [place] [address] ARLEEN: 11/11/23 Note routed to a Insurance Sales Associate who will communicate referrals to facilities and provide any required information. * Vanna Suarez APRN - 11/11/2023 12:30 PM EST Images from the original note were not included. Glucose Management Team Inpatient Progress Note HPI Koko Zamora is a 83 y.o. male from [place], [place] with PMH significant for atrial fibrillation,Type 2 DM, CAD, HLD, heart failure who was admitted on 11/06/2023 currently being treated for acutestroke. Original consult completed: 11/09/2023 Patient Interview & Updates Koko continues to have expressive aphasia, but is able to answer some questions. Objective Temp: [5 ??C (41 ??F)-37.1 ??C (98.8 ??F)] Heart Rate: -- Resp: [16-22] BP: (85-124)/(60-75) SpO2: [91 %-99 %] Heart Rate from SpO2: [64 bpm-105 bpm] Wt Readings from Last 3 Encounters: 11/11/23 70.1 kg (154 lb 8 oz) 11/06/23 72.6 kg (160 lb 0.9 oz) 10/22/23 72.6 kg (160 lb) Current Regimen Insulin glargine:10 units daily Lispro 1:10 insulin to carbohydrate ratio Lispro Correction: Sensitive 1:40 correction for BG >160 Relevant meds: none TDD: 11/10: 20u (10u basal, 8u meal, 2u correction) Recent Glucose Levels Recent Labs 11/11/23 0613 11/11/23 0359 11/10/23 2306 11/10/23201511/10/23 1558 11/10/23 1144 11/10/23 0753 11/10/23 0613 11/10/23 0349 11/09/23 2326 11/09/23201111/09/23 1515 POCGLU 142 198 134 152 150 180 172 124 122 142 160 235* ASSESSMENT Koko is a 83 y.o. years old male with PMH significant for DM (Last A1C of 7.7% 11/06/2023) who was admitted on 11/06/2023 for acute stroke. Diabetes adequately controlled and currently complicated by acute stroke. Currently with variability of blood glucose levels while hospitalized requiring adjustment of insulin regimen and DM medications. Koko is stable today. BG mostly under 200, and eating well. Recommended to nursing to dose when the meal arrives versus after now that he's eating 75-100% to help avoid post-meal spikes. No dose changes needed today. Updated team with plan. PLAN Insulin glargine:10 units daily Lispro 1:10 insulin to carbohydrate ratio Lispro Correction: Sensitive 1:40 correction for BG >160 Diet: Carb Controlled 60/60/75g Monitoring: BG Q4 Discharge Planning/long-term diabetes care: Medications - Outpatient treatment regimen recommendations pending based on the hospital course. Metformin only Consider home with Lantus based on hospital needs Monitoring - continue BG tid ac & hs Diet - low fat/low carb diet Exercise - weight-bearing exercise 30 min/day, as tolerated 35 minutes were spent over the course of the day with this patient encounter including time spent in chart review and relevant lab result review, assessment of and counseling with the patient on diabetes and treatment plan, reviewing all glucose and insulin data, and coordination with the consulting service. Vanna Suarez APRN, DNP, -[facility] Inpatient Diabetes Management Team Team pager #[phone] * Gordo Skinner, [place] - 11/11/2023 10:07 AM EST Occupational Therapy Treatment Note Treatment Number OT: 2 Patient Dx: Koko Zamora is a 83 y.o. with PMH of permanent AFIB (on Eliquis though held afterdose 11/01), TII DM, CAD s/p stenting May (on Plavix), HLD, HFrEF, MV repair for mitral valve prolapse in 2000, prior GIB on ASA (iso duodenal and colonic angiectasias), PAD (s/p LLE ACLI s/p embolectomy with 4 compartment fasciotomy), and basal cell carcinoma who presented to the ED as a stroke alert for acute onset of R sided weakness, AMS, and aphasia. S/p tPA 1101 11/06. Social History: Patient lives with his , Lesly. All needs can be mot on the 1st floor, 5 steps to enter. DME: unknown Baseline ADL/Mobility: independent with ADL, IADL, drives, ? uses cane occasionally. Precautions/Special Considerations: fall risk, SBP <180, expressive aphasia, R inattention Activity order: up with assistance Interval History: MARLENA. Feels his strength is improving and feeling better overall, though still having aphasia. Continues to have soft blood pressures. Labs largely unremarkable. S: Left. Discussing performing morning ADLs prior to OT arrival O: Patient seen for skilled OT treatment, and demonstrated the following: Supine>sit: Anish, increased time, cues to attend to R side of body UE>LE Once seated EOB pt able to maintain balance w/ SBA ModA-MaxA to don pants, verbal cues for mod technique and attention to R side of body Sit<>stand x 2: CGA: MaxA to hike and tie pants in standing Functional mobility: Anish w/out AD ~ 20', increased time, verbal cues for attending to items on R side, decreased step length/height w/ RLE Pt able to id 2/4 ADL items in bathroom un cued: required increased time and verbal cues for scanning to visualize and point out 4/4 Stand>sit: CGA Pt attempted to drink from bottle w/ R hand following verbal cues; however, required LUE assist to complete task Pt educated on performing AAROM of his RUE w/ LUE assist; however, will benefit from continued review: present and verbalized understanding Cognition: Behavior / Mood: alert and cooperative Alert and oriented to: person, place, date, month, and situation Follows commands: 75% of the time and requires increased time Attention: WFL Safety awareness: WFL and fully aware of deficits Pt continues to demonstrate and endorse word finding difficulties Endurance:fair Vitals: stable on RA: BP: 106/68 Strength/ROM:RUE grossly 3-/5: pt educated on AAROM: pt verbalized/demonstrated understanding Pain: None reported Education: Pt/family/caregiver education ongoing regarding: Role of occupational therapy/rehabilitation, Transfers, Assistive device/technique, ADL, Positioning, Safety, Precautions/Protocol, Functional Mobility, Home Management, Balance, Recommendations, and Discharge planning. Staff Communication: Patient status, treatment, and mobility recommendations discussed with nursing/other staff. ASSESSMENT: Pt seen by OT for progression of functional mobility and self-care. Pt performed bed mobility w/ Anish to due to R inattention of his UE>LE. Pt required MaxA to complete LB dressing tasks, performed functional mobility w/ Anish, and required verbal cues for scanning to avoid objects during mobility and fully attend to items at bathroom sink. Pt demonstrated safety awareness and orientation WNL; however, continued to demonstrate expressive aphasia that required increased time for all communication. Pt continues to function below a safe level for him to return home and would greatly benefit from an Acute Inpatient Rehab stay to continue his progress. Pt will benefit from ongoing t herapeutic interventions to achieve pt's and therapy goals Anticipated Discharge Disposition (OT): acute rehabilitation facility Equipment Recommendations: Equipment Needs Upon Discharge (OT): to be determined Daily schedule / Staff Recommendations: Activity Recommendations: OOB to chair for all meals Promote normalcy by encouraging participation in common daily tasks & leisure activities by providing set up assist Frequent orientation verbally & visually with calendars/clocks/whiteboard Facilitate a normal sleep-wake cycle Provide brief, clear instruction and direction from one source at a time Reduce extraneous stimulation Neuro shoulder precautions: No shoulder flexion beyond 90 degrees, position shoulder in external rotation when at rest in bed (inside elbow crease up, elbow extended), Avoid IV's or BP's on affected arm, Occupational Therapy Goals: Goals: To be achieved by 11/24/23 Pt will perform grooming routine sitting/standing at sink supervision. Pt will dress LB with supervision using adaptive equipment as needed. Pt will transfer on/off commode/chair with supervision. Pt will perform toileting routine with supervision. Pt will ambulate in room for ADL with supervision using least restrictive device. Pt will consistently make basic needs known using AE as needed. Pt will consistently locate AD Therapy Frequency (OT): 2-4 times/wk Total Minutes, Occupational Therapy: 31 (wy x 2 [id number]) Pager: [phone] Gordo Skinner OT Occupational Therapy Rehabilitation Department * Elidia Duarte MD - 11/11/2023 6:46 AM EST Images from the original note were not included. VASCULAR NEUROLOGY DAILY PROGRESS NOTE Admit Date 11/06/2023 Responsible Attending: Galilea Fournier MD Primary Provider: Bobby Das MD [phone] Hospital Day: Hospital Day: 6 Patient ID 83 y.o. male with PMHx of permanent AFIB (on Eliquis though held after dose 11/01), TII DM, CAD s/pstenting May (on Plavix), HLD, HFrEF, MV repair for mitral valve prolapse in 2000, prior GIB on ASA (iso duodenal and colonic angiectasias), PAD (s/p LLE ACLI s/p embolectomy with 4 compartment fasciotomy), and basal cell carcinoma who presented to the ED as a stroke alert for acute onset of Rsided weakness, AMS, and aphasia, now s/p tPA. 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 24hr Events: - NAEO. Feels his strength is improving and feeling better overall, though still having aphasia. - Continues to have soft blood pressures. Labs largely unremarkable. - Acute rehab when MR for d/c - Last Bowel Movement: 11/10/23 EXAM Last value Range last 24 hrs Temperature Temp: 36.8 ??C (98.2 ??F) Temp: [5 ??C (41 ??F)-37.1 ??C (98.8 ??F)] Heart Rate Heart Rate: (!) 104 Heart Rate: -- Blood Pressure BP: 95/61 BP: (85-124)/(57-69) Respiratory Rate Resp: 18 Resp: [16-22] SpO2 SpO2: 95 % SpO2: [91 %-99 %] GEN- Awake/alert, oriented to self and age, following simple commands appropriately, there is some loss of fluency of speech, mild to moderate dysarthria, naming intact today (watch, dial, thumb, fingernail, knuckles) CN- Pupils miotic and L slightly smaller vs the R but both reactive, VFFTC, EOMI, R facial droop, tongue midline, palate rises symmetrically MOTOR- RUE/RLE some drift though much improved, No drift in LUE/LLE SENSATION - intact and symmetric to LT in BUE/BLE without evidence of sensory extinction CEREBELLUM - FTN intact (has some difficulty performing this on the RUE though not clearly ataxic -likely 2/2 weakness), HTS intact DATA I/O last 3 completed shifts: In: 654 [P.O.:644; I.V.:10] Out: 1825 [Urine:1825] Labs Recent Labs 11/11/23 0445 11/10/23 0505 11/09/23 0618 11/08/23 0227 11/07/23 0230 WBC 7.4 7.9 9.0 10.0* 9.7* HGB 15.8 16.1 16.3 15.6 15.8 HCT 46.0 46.1 47.1 45.3 46.4 PLATELET 138* 135* 130* 152 154 NEUTROABS 5.02 5.43 6.30* 7.19* 6.89* Recent Labs 11/11/23 0445 11/10/23 0505 11/09/23 0618 11/08/23 0227 11/07/23 0230 NA 139 141 140 142 138 K 3.9 4.2 4.0 4.2 3.9 CL 103 104 105 107 102 CO2 25 25 24 23 24 BUN 20 23* 22* 26* 19 CREATININE 0.79* 0.97 0.74* 0.88 0.79* GLUCOSE 206* 141 167 229* 164 Recent Labs 11/11/23 0445 11/10/23 0505 11/09/23 0618 CALCIUM 9.1 9.1 8.7 MAGNESIUM 0.86 0.90 0.93 PHOS 2.8 3.4 2.8 No results for input(s): AST, ALT, ALKPHOS, BILITOT, BILIDIR, LDH in the last 168 hours. No results for input(s): TROPONINT, CK in the last 168 hours. No results for input(s): PHART, RZD5XFN, PO2ART, ODT6FWK in the last 168 hours. No results for input(s): INR in the last 72 hours. Lipid Panel Lab Results Component Value Date CHLPL 192 11/06/2023 HDL 61 11/06/2023 CHOLHDL 3.1 11/06/2023 LDLDIRECT 112 11/06/2023 Lab Results Component Value Date HA1C 7.7 (H) 11/06/2023 Micro - cultures/sensitivities UCx - None CSF - None Blood Cx - None Resp Cx - None Imaging/EKG Results for orders placed or performed during the hospital encounter of 11/06/23 XR Chest AP and Pelvis AP Trauma (Generic) (Exam End: 11/06/2023 10:08 AM) Impression No acute radiographically evident abnormality in the visualized chest or pelvis. I have personally reviewed the image(s) and the resident's interpretation and agree with the findings, Robyn Najera MD at 11/06/2023 11:47 AM Thank you for letting us participate in the care of this patient. If you are a health care provider and have any questions regarding this report, please contact the number below. For patients who have questions please contact the health health care attorney that requested your imaging first. Head wo & Multiphase CTA Head/Neck (THROMBECTOMY PROTOCOL) (Exam End: 11/06/2023 10:40 AM) Impression 1. No acute intracranial hemorrhage. 2. Occlusion of the left pericallosal BRUCE. 3. 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 4. Severe stenosis of the left ICA origin. 5. Severe stenosis of the right vertebral artery origin. 6. Remote left inferior frontal infarcts. Thank you for letting us participate in the care of this patient. If you are a health care provider and have any questions regarding this report, please contact the number below. For patients who have questions please contact the health health care attorney that requested your imaging first. Cervical Spine Reconstruction (Exam End: 11/06/2023 10:40 AM) Impression 1. No acute fracture or malalignment. 2. Diffuse osseous demineralization and multilevel degenerative changes throughout the spine as described. I have personally reviewed the image(s) and the resident's interpretation and agree with the findings, Edson Danielle DO at 11/06/2023 11:29 AM Thank you for letting us participate in the care of this patient. If you are a health care provider and have any questions regarding this report, please contact the number below. For patients who have questions please contact the health health care attorney that requested your imaging first. Electronically signed by: [facility] ([phone]), at 11/06/2023 11:[address] Chest Abdomen Pelvis w Contrast (Generic) (Exam End: 11/06/2023 10:40 AM) Impression No evidence of acute thoracic or abdominal pathology. Thank you for letting us participate in the care of this patient. If you are a health care provider and have any questions regarding this report, please contact the number below. For patients who have questions please contact the health health care attorney that requested your imaging first. Thoracic Spine Reconstruction (Exam End: 11/06/2023 10:40 AM) Impression 1. No acute fracture or malalignment. 2. Diffuse osseous demineralization and multilevel degenerative changes throughout the spine as described. I have personally reviewed the image(s) and the resident's interpretation and agree with the findings, Edson Danielle DO at 11/06/2023 11:29 AM Thank you for letting us participate in the care of this patient. If you are a health care provider and have any questions regarding this report, please contact the number below. For patients who have questions please contact the health health care attorney that requested your imaging first. Electronically signed by: [facility] ([phone]), at 11/06/2023 11:[address] Lumbar Spine Reconstruction (Exam End: 11/06/2023 10:40 AM) Impression 1. No acute fracture or malalignment. 2. Diffuse osseous demineralization and multilevel degenerative changes throughout the spine as described. I have personally reviewed the image(s) and the resident's interpretation and agree with the findings, Edson Danielle DO at 11/06/2023 11:29 AM Thank you for letting us participate in the care of this patient. If you are a health care provider and have any questions regarding this report, please contact the number below. For patients who have questions please contact the health health care attorney that requested your imaging first. Shoulder Right (Generic) (Exam End: 11/06/2023 11:54 AM) Impression No acute fracture or dislocation Thank you for letting us participate in the care of this patient. If you are a health care provider and have any questions regarding this report, please contact the number below. For patients who have questions please contact the health health care attorney that requested your imaging first. Electronically signed by: Shannen Sánchez MD, [facility] ([phone]), at 11/06/2023 12:02 PM XR Elbow 3 Views Right (GENERIC) (Exam End: 11/06/2023 11:54 AM) Impression 1. No acute fracture. 2. Normal osseous alignment 3. No elbow effusion. Thank you for letting us participate in the care of this patient. If you are a health care provider and have any questions regarding this report, please contact the number below. For patients who have questions please contact the health health care attorney that requested your imaging first. Electronically signed by: Shannen Sánchez MD, [facility] ([phone]), at 11/06/2023 12:00 PM XR Wrist 3 Views Right (Exam End: 11/06/2023 11:54 AM) Impression 1. No acute fracture. 2. Normal osseous alignment 3. No elbow effusion. Thank you for letting us participate in the care of this patient. If you are a health care provider and have any questions regarding this report, please contact the number below. For patients who have questions please contact the health health care attorney that requested your imaging first. Knee 1-2 Views Right (Generic) (Exam End: 11/06/2023 11:54 AM) Impression 1. 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 2. Small effusion without lipohemarthrosis 3. No acute fractures seen. Thank you for letting us participate in the care of this patient. If you are a health care provider and have any questions regarding this report, please contact the number below. For patients who have questions please contact the health health care attorney that requested your imaging first. Electronically signed by: Shannen Sánchez MD, [facility] ([phone]), at 11/06/2023 11:57 AM MRI Brain wo Contrast (Exam End: 11/06/2023 10:08 PM) Impression 1. Acute infarct in the left superior frontal gyrus, compatible with a left BRUCE territory infarct. No associated hemorrhage 2. Additional punctate foci of restricted diffusion, in the right precentral gyrus, bilateral lateral inferior frontal gyri and left centrum semiovale, compatible with punctate embolic infarcts. 3. No evidence of associated hemorrhagic conversion. Thank you for letting us participate in the care of this patient. If you are a health care provider and have any questions regarding this report, please contact the number below. For patients who have questions please contact the health health care attorney that requested your imaging first. Head wo Contrast (Generic) (Exam End: 11/07/2023 11:17 AM) Impression Localized left BRUCE infarct primarily involving the superior frontal gyrus as above without evidence of significant mass effect or hemorrhage. Thank you for letting us participate in the care of this patient. If you are a health care provider and have any questions regarding this report, please contact the number below. For patients who have questions please contact the health health care attorney that requested your imaging first. Brain wo Contrast (Exam End: 11/08/2023 1:19 PM) Impression No definitive interval infarct. There are more conspicuous small foci of diffusion restriction along the anterior left cingulate gyrus. 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 Few punctate foci of diffusion restriction again noted over the frontal convexities. Thank you for letting us participate in the care of this patient. If you are a health care provider and have any questions regarding this report, please contact the number below. For patients who have questions please contact the health health care attorney that requested your imaging first. 11/06/23 Interpretation Summary Mildly to moderately reduced left ventricular systolic function. LVEF 40-45%. Normal right ventricular systolic function Sclerotic aortic valve with moderate stenosis and mild insufficiency Mild valve repair with mild stenosis Severe left and moderate right atrial enlargement Mildly dilated aortic root and proximal ascending aorta (both 4.0 cm) Compared with study of 09/05/2022, systolic function has improved, aortic stenosis has progressed, aorta size is similar (3.9 cm for root and ascending on prior) ASSESSMENT & PLAN Koko Zamora is an 83 y.o. male with PMHx of permanent AFIB (on Eliquis though held after dose11/01), TII DM, CAD s/p stenting May (on Plavix), HLD, HFrEF, MV repair for mitral valve prolapse in 2000, prior GIB on ASA (iso duodenal and colonic angiectasias), PAD (s/p LLE ACLI s/p embolectomy with 4 compartment fasciotomy), and basal cell carcinoma who presented to the ED as a stroke alert for acute onset of R sided weakness, AMS, and aphasia, now s/p tPA. 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 11/11/23 - Neurological exam demonstrates improvement in right-sided weakness and MRI stable. Afterdiscussion with patient, Eliquis resumed at half dose, 2.5 mg BID. Patient was not taking Plavix due to GI bleed and is resistant to starting antiplatelet medications. Will therefore continue Eliquis2.5 mg BID without the addition of antiplatelets. Today's Plan: - Stop Plavix, as patient was not taking and does not want to restart due to concern for GI bleed. #L BRUCE territory infarct and small foci of R hemispheric infarct iso holding AC for upcoming Watchmen procedure -s/p tpa (given at 1101 on 11/06) -floor level of care -VS / NC q4h -SBP goal <180 (PRN labetalol, vasotec) -Plavix load 300 mg (11/07) followed by 75 mg daily for now- stopped 11/11 due to patient preference and concern for GIB -Eliquis 2.5mg BID resumed 11/10 - -continue home crestor 40 mg daily -CTH/CTA as above -MRI brain wo as above and repeat MRI without new infarct. 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 - Start Metoprolol 12.5mg Q6Hrs today. - Eliquis 2.5 mg BID (reduced dose given prior GIB) - holding home tretinoin cream - tamsulosin 0.4 mg daily - PRN tylenol #Routine: Diet: Carb Control diet 60/60/75 CHO counting level 2 DVT Ppx: lovenox 40 mg nightly Last Bowel Movement: 11/10/23 Code status: Attempt Cardiopulmonary Resuscitation - Inpatient Patient Lines/Drains/Airways Status Active Tubes/Lines/Drains Name Placement date Placement time Site Days PIV 11/06/23 0954 cephalic vein (lateral side of arm), right 11/06/23 0954 -- 5 Please page Vascular Neurology with any questions, #[id number] Elidia Duarte MD [place] [address] Associated attestation - Galilea Fournier MD - 11/11/2023 1:54 PM EST Neurology Staff Note I have reviewed the resident's history during the visit and I agree with the details as written. Myphysical examination confirms the resident's findings. The assessment and plan were formulated in discussion with me at the time of the visit and I agree with them as documented. Intermittently still feeling nauseated. Discussed apixaban dose today with patient and his . Despite us recommending apixaban 5BID and clopidogrel, patient and his would prefer 2.5BID and noplavix. They would like reduction of risk of GIB in any way possible. * Elidia Duarte MD - 11/10/2023 6:43 AM EST Images from the original note were not included. VASCULAR NEUROLOGY DAILY PROGRESS NOTE Admit Date 11/06/2023 Responsible Attending: Galilea Fournier MD Primary Provider: Bobby Das MD [phone] Hospital Day: Hospital Day: 5 Patient ID 83 y.o. male with PMHx of permanent AFIB (on Eliquis though held after dose 11/01), TII DM, CAD s/pstenting May (on Plavix), HLD, HFrEF, MV repair for mitral valve prolapse in 2000, prior GIB on ASA (iso duodenal and colonic angiectasias), PAD (s/p LLE ACLI s/p embolectomy with 4 compartment fasciotomy), and basal cell carcinoma who presented to the ED as a stroke alert for acute onset of Rsided weakness, AMS, and aphasia, now s/p tPA. 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 24hr Events: - NAEO. Feels his strength is improving and feeling better overall - Continues to have soft blood pressures. Labs largely unremarkable. - Acute rehab when MR for d/c - Last Bowel Movement: 11/07/23 EXAM Last value Range last 24 hrs Temperature Temp: 36.6 ??C (97.9 ??F) Temp: [36.3 ??C (97.3 ??F)-37.3 ??C (99.1 ??F)] Heart Rate Heart Rate: (!) 104 Heart Rate: [81-104] Blood Pressure BP: 99/63 BP: (92-119)/(59-75) Respiratory Rate Resp: 16 Resp: [16-27] SpO2 SpO2: 92 % SpO2: [92 %-97 %] GEN- Awake/alert, oriented to self and age, following simple commands appropriately, there is some loss of fluency of speech, mild to moderate dysarthria, naming intact today (watch, dial, thumb, fingernail, knuckles) CN- Pupils miotic and L slightly smaller vs the R but both reactive, VFFTC, EOMI, R facial droop, tongue midline, palate rises symmetrically MOTOR- RUE/RLE antigravity with drift (improved from yesterday), No drift in LUE/LLE SENSATION - intact and symmetric to LT in BUE/BLE without evidence of sensory extinction CEREBELLUM - FTN intact (has some difficulty performing this on the RUE though not clearly ataxic -likely 2/2 weakness), HTS intact DATA I/O last 3 completed shifts: In: 1125 [P.O.:1120; I.V.:5] Out: 1425 [Urine:1425] Labs Recent Labs 11/10/23 0505 11/09/23 0618 11/08/23 02211/07/23 0230 11/06/23 1007 WBC 7.9 9.0 10.0* 9.7* 9.6* HGB 16.1 16.3 15.6 15.8 16.2 HCT 46.1 47.1 45.3 46.4 47.2 PLATELET 135* 130* 152 154 154 NEUTROABS 5.43 6.30* 7.19* 6.89* 6.25* Recent Labs 11/10/23 0505 11/09/23 0618 11/08/23 0227 11/07/23 0230 11/06/23 1007 NA 141 140 142 138 142 K 4.2 4.0 4.2 3.9 4.7 CL 104 105 107 102 105 CO2 25 24 23 24 26 BUN 23* 22* 26* 19 24* CREATININE 0.97 0.74* 0.88 0.79* 0.87 GLUCOSE 141 167 229* 164 248* Recent Labs 11/10/23 0505 11/09/23 0618 11/08/23 0227 CALCIUM 9.1 8.7 8.8 MAGNESIUM 0.90 0.93 0.89 PHOS 3.4 2.8 3.2 No results for input(s): AST, ALT, ALKPHOS, BILITOT, BILIDIR, LDH in the last 168 hours. No results for input(s): TROPONINT, CK in the last 168 hours. No results for input(s): PHART, OFO9RXY, PO2ART, WBM1DKD in the last 168 hours. No results for input(s): INR in the last 72 hours. Lipid Panel Lab Results Component Value Date CHLPL 192 11/06/2023 HDL 61 11/06/2023 CHOLHDL 3.1 11/06/2023 LDLDIRECT 112 11/06/2023 Lab Results Component Value Date HA1C 7.7 (H) 11/06/2023 Micro - cultures/sensitivities UCx - None CSF - None Blood Cx - None Resp Cx - None Imaging/EKG Results for orders placed or performed during the hospital encounter of 11/06/23 XR Chest AP and Pelvis AP Trauma (Generic) (Exam End: 11/06/2023 10:08 AM) Impression No acute radiographically evident abnormality in the visualized chest or pelvis. I have personally reviewed the image(s) and the resident's interpretation and agree with the findings, Robyn Najera MD at 11/06/2023 11:47 AM Thank you for letting us participate in the care of this patient. If you are a health care provider and have any questions regarding this report, please contact the number below. For patients who have questions please contact the health health care attorney that requested your imaging first. Head wo & Multiphase CTA Head/Neck (THROMBECTOMY PROTOCOL) (Exam End: 11/06/2023 10:40 AM) Impression 1. No acute intracranial hemorrhage. 2. Occlusion of the left pericallosal BRUCE. 3. 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 4. Severe stenosis of the left ICA origin. 5. Severe stenosis of the right vertebral artery origin. 6. Remote left inferior frontal infarcts. Thank you for letting us participate in the care of this patient. If you are a health care provider and have any questions regarding this report, please contact the number below. For patients who have questions please contact the health health care attorney that requested your imaging first. Cervical Spine Reconstruction (Exam End: 11/06/2023 10:40 AM) Impression 1. No acute fracture or malalignment. 2. Diffuse osseous demineralization and multilevel degenerative changes throughout the spine as described. I have personally reviewed the image(s) and the resident's interpretation and agree with the findings, Edson Danielle DO at 11/06/2023 11:29 AM Thank you for letting us participate in the care of this patient. If you are a health care provider and have any questions regarding this report, please contact the number below. For patients who have questions please contact the health health care attorney that requested your imaging first. Chest Abdomen Pelvis w Contrast (Generic) (Exam End: 11/06/2023 10:40 AM) Impression No evidence of acute thoracic or abdominal pathology. Thank you for letting us participate in the care of this patient. If you are a health care provider and have any questions regarding this report, please contact the number below. For patients who have questions please contact the health health care attorney that requested your imaging first. Thoracic Spine Reconstruction (Exam End: 11/06/2023 10:40 AM) Impression 1. No acute fracture or malalignment. 2. Diffuse osseous demineralization and multilevel degenerative changes throughout the spine as described. I have personally reviewed the image(s) and the resident's interpretation and agree with the findings, Edson Danielle DO at 11/06/2023 11:29 AM Thank you for letting us participate in the care of this patient. If you are a health care provider and have any questions regarding this report, please contact the number below. For patients who have questions please contact the health health care attorney that requested your imaging first. Lumbar Spine Reconstruction (Exam End: 11/06/2023 10:40 AM) Impression 1. No acute fracture or malalignment. 2. Diffuse osseous demineralization and multilevel degenerative changes throughout the spine as described. I have personally reviewed the image(s) and the resident's interpretation and agree with the findings, Edson Danielle DO at 11/06/2023 11:29 AM Thank you for letting us participate in the care of this patient. If you are a health care provider and have any questions regarding this report, please contact the number below. For patients who have questions please contact the health health care attorney that requested your imaging first. Electronically signed by: [facility] ([phone]), at 11/06/2023 11:29 AM XR Shoulder Right (Generic) (Exam End: 11/06/2023 11:54 AM) Impression No acute fracture or dislocation Thank you for letting us participate in the care of this patient. If you are a health care provider and have any questions regarding this report, please contact the number below. For patients who have questions please contact the health health care attorney that requested your imaging first. Electronically signed by: Shannen Sánchez MD, [facility] ([phone]), at 11/06/2023 12:02 PM XR Elbow 3 Views Right (GENERIC) (Exam End: 11/06/2023 11:54 AM) Impression 1. No acute fracture. 2. Normal osseous alignment 3. No elbow effusion. Thank you for letting us participate in the care of this patient. If you are a health care provider and have any questions regarding this report, please contact the number below. For patients who have questions please contact the health health care attorney that requested your imaging first. Wrist 3 Views Right (Exam End: 11/06/2023 11:54 AM) Impression 1. No acute fracture. 2. Normal osseous alignment 3. No elbow effusion. Thank you for letting us participate in the care of this patient. If you are a health care provider and have any questions regarding this report, please contact the number below. For patients who have questions please contact the health health care attorney that requested your imaging first. Electronically signed by: Shannen Sánchez MD, [facility] ([phone]), at 11/06/2023 12:00 PM XR Knee 1-2 Views Right (Generic) (Exam End: 11/06/2023 11:54 AM) Impression 1. 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 2. Small effusion without lipohemarthrosis 3. No acute fractures seen. Thank you for letting us participate in the care of this patient. If you are a health care provider and have any questions regarding this report, please contact the number below. For patients who have questions please contact the health health care attorney that requested your imaging first. Electronically signed by: Shannen Sánchez MD, [facility] ([phone]), at 11/06/2023 11:57 AM MRI Brain wo Contrast (Exam End: 11/06/2023 10:08 PM) Impression 1. Acute infarct in the left superior frontal gyrus, compatible with a left BRUCE territory infarct. No associated hemorrhage 2. Additional punctate foci of restricted diffusion, in the right precentral gyrus, bilateral lateral inferior frontal gyri and left centrum semiovale, compatible with punctate embolic infarcts. 3. No evidence of associated hemorrhagic conversion. Thank you for letting us participate in the care of this patient. If you are a health care provider and have any questions regarding this report, please contact the number below. For patients who have questions please contact the health health care attorney that requested your imaging first. Head wo Contrast (Generic) (Exam End: 11/07/2023 11:17 AM) Impression Localized left BRUCE infarct primarily involving the superior frontal gyrus as above without evidence of significant mass effect or hemorrhage. Thank you for letting us participate in the care of this patient. If you are a health care provider and have any questions regarding this report, please contact the number below. For patients who have questions please contact the health health care attorney that requested your imaging first. Brain wo Contrast (Exam End: 11/08/2023 1:19 PM) Impression No definitive interval infarct. There are more conspicuous small foci of diffusion restriction along the anterior left cingulate gyrus. 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 Few punctate foci of diffusion restriction again noted over the frontal convexities. Thank you for letting us participate in the care of this patient. If you are a health care provider and have any questions regarding this report, please contact the number below. For patients who have questions please contact the health health care attorney that requested your imaging first. 11/06/23 Interpretation Summary Mildly to moderately reduced left ventricular systolic function. LVEF 40-45%. Normal right ventricular systolic function Sclerotic aortic valve with moderate stenosis and mild insufficiency Mild valve repair with mild stenosis Severe left and moderate right atrial enlargement Mildly dilated aortic root and proximal ascending aorta (both 4.0 cm) Compared with study of 09/05/2022, systolic function has improved, aortic stenosis has progressed, aorta size is similar (3.9 cm for root and ascending on prior) ASSESSMENT & PLAN Koko Zamora is an 83 y.o. male with PMHx of permanent AFIB (on Eliquis though held after dose11/01), TII DM, CAD s/p stenting May (on Plavix), HLD, HFrEF, MV repair for mitral valve prolapse in 2000, prior GIB on ASA (iso duodenal and colonic angiectasias), PAD (s/p LLE ACLI s/p embolectomy with 4 compartment fasciotomy), and basal cell carcinoma who presented to the ED as a stroke alert for acute onset of R sided weakness, AMS, and aphasia, now s/p tPA. 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 11/10/23 - Neurological exam demonstrates some improvement in right-sided weakness and MRI stable. Will resume anticoagulation today at full dose Eliquis 5mg after discussing with patient. Discussed with GI given his history of multiple GIB. There is felt to be no utility in performing EGD prophylactically, and given his stable Hgb no objection to giving Plavix if indicated from strokeperspective. His PPI was increased to BID for now for GI Ppx. Medication reconciliation has been a c hallenge as patient and are unsure of what he takes. Started metoprolol tartrate 12.5 q6h for tachycardia, though it has been held for the last two doses due to asymptomatic hypotension. Giving fluid bolus today and will monitor blood pressures closely. Today's Plan: - Start Eliquis 5mg BID - Continue to monitor BPs #L BRUCE territory infarct and small foci of R hemispheric infarct iso holding AC for upcoming Watchmen procedure -s/p tpa (given at 1101 on 11/06) -floor level of care -VS / NC q4h -SBP goal <180 (PRN labetalol, vasotec) -Plavix load 300 mg (11/07) followed by 75 mg daily for now -holding home Eliquis (tentatively plan to restart ~Oct 11 - if stable) -continue home crestor 40 mg daily -CTH/CTA as above -MRI brain wo as above and repeat MRI without new infarct. 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 - Start Metoprolol 12.5mg Q6Hrs today. - holding home Eliquis 2.5 mg BID (reduced dose given prior GIB) - holding home tretinoin cream - tamsulosin 0.4 mg daily - PRN tylenol #Routine: Diet: Carb Control diet 60/60/75 CHO counting level 2 DVT Ppx: lovenox 40 mg nightly Last Bowel Movement: 11/07/23 Code status: Attempt Cardiopulmonary Resuscitation - Inpatient Patient Lines/Drains/Airways Status Active Tubes/Lines/Drains Name Placement date Placement time Site Days PIV 11/06/23 0954 cephalic vein (lateral side of arm), right 11/06/23 0954 -- 4 Please page Vascular Neurology with any questions, #[phone] Elidia Duarte MD Department [place] [address] Associated attestation - Galilea Fournier MD - 11/10/2023 2:21 PM EST Neurology Staff Note I have reviewed the resident's history during the visit and I agree with the details as written. Myphysical examination confirms the resident's findings. The assessment and plan were formulated in discussion with me at the time of the visit and I agree with them as documented. Feeling well today. Continuing to adjust BP meds to optimize fluid status, BP and HR. Repeat MRI stable. Needs acute rehab. Resume anticoagulation for afib per [facility] trial today (day 5). Patient declines full dose, requesting 2.5 dosing. * Trenton Johnson MD - 11/09/2023 12:37 PM EST Diabetes Management Team Inpatient Consult Date of Consultation: 11/09/2023 Consult Requested by: Primary team Reason for Consultation: Koko Zamora is a 83 y.o. male with PMH significant for atrial fibrillation, type 2 DM, CAD, HLD, heart failure who was admitted on 11/06/2023 currently being treated for acute stroke. We are being consulted to assist with diabetes management and to provide a review oflong term diabetes care. Diabetes History: Koko Zamora has had diabetes for 3 years. He is currently only on metformin, he was never on insulin. He reports his last hemoglobin A1c is 7.7. He checks his blood sugar every day 2 times daily, and his numbers are typically in the 140s, however he tells us that recently his sugar was running in 300s. Interval events -BG well controlled -received 10U Lantus once yesterday ROS: Negative except as above PMH No past medical history on file. Current Hospital Medications: melatonin 6 mg Oral Once melatonin 3 mg Oral Nightly metoproloL tartrate 12.5 mg Oral Q6H [facility] [START ON 11/10/2023] insulin glargine (Lantus;Semglee) (100 unit/mL) subcutaneous injection 10 UnitsSubcutaneous Daily insulin lispro 0-8 Units Subcutaneous TID WC insulin lispro 1-4 Units Subcutaneous Q4H [facility] pantoprazole EC 40 mg Oral BID clopidogreL 75 mg Oral Daily enoxaparin 40 mg Subcutaneous Nightly sodium chloride 0.9 % (flush) 5 mL Intravenous BID rosuvastatin 40 mg Oral QPM tamsulosin 0.4 mg Oral Daily senna-docusate 1 tablet Oral BID PRN: traZODone, ondansetron OR ondansetron ODT, glucose 40% oral geL OR dextrose OR glucagon, sodium chloride 0.9 % (flush), lidocaine, labetaloL, enalaprilat, acetaminophen Allergy: Allergies Allergen Reactions Aspirin Other (See Comments) GI bleed Social history: Social History Tobacco Use Smoking status: Former Packs/day: 0.50 Years: 50.00 Additional pack years: 0.00 Total pack years: 25.00 Types: Cigarettes Quit date: 05/15/2022 Years since quittin.4 Smokeless tobacco: Never Vaping Use Vaping Use: Never used Substance Use Topics Alcohol use: Not Currently Alcohol/week: 42.0 standard drinks of alcohol Types: 42 Cans of beer per week Comment: Last alcohol use in May 2022 Drug use: Not Currently Family history: No family history on file. Vitals Last value Range last 24 hrs Temperature Temp: 36.6 ??C (97.9 ??F) Temp: [36.6 ??C (97.8 ??F)-36.8 ??C (98.2 ??F)] Heart Rate Heart Rate: (!) 104 Heart Rate: [79-104] Blood Pressure BP: 108/75 BP: (93-136)/(58-104) Respiratory Rate Resp: 22 Resp: [18-27] SpO2 SpO2: 95 % SpO2: [94 %-98 %] Physical Exam: Gen: NAD, talking slowly and with interruptions HEENT: no LAD, oral mucus membranes moist no obvious inflammation Heart: Lungs:breathing non-labored. Neuro: Not moving right lower upper extremity, problem finding words Labs: Lab Results Component Value Date BUN 22 (H) 11/09/2023 CREATININE 0.74 (L) 11/09/2023 GLUCOSE 167 11/09/2023 GLUCFASTING 152 (H) 05/20/2022 ESTGFR 91 11/09/2023 Lab Results Component Value Date HA1C 7.7 (H) 11/06/2023 No results found for: MICROALBUR Lab Results Component Value Date CHLPL 192 11/06/2023 Lab Results Component Value Date HDL 61 11/06/2023 No results found for: LDLCHOL No results found for: TRIG Lab Results Component Value Date CHOLHDL 3.1 11/06/2023 Assessment: Patient is a 83 y.o. years old male with PMH significant for DM (Last A1C of 7.7) who was admitted on 11/06/2023 for acute stroke. Diabetes adequately controlled and currently complicated by acute stroke. Currently with variability of blood glucose levels while hospitalized requiring adjustment of insulin regimen and DM medications. Plan: 1. Change Lantus to 10 units daily 2. Lispro sensitive correction scale for BG>140 q 4 hrs 3. Meal-associated Lispro 1unit: 10 gm carb ratio for each meal) Diabetes Discharge Planning Medications - Outpatient treatment regimen recommendations pending based on the hospital course, long-term diabetes care: Medications - Outpatient treatment regimen recommendations pending based on the hospital course. Monitoring - continue BG tid ac & hs Diet - low fat/low carb diet Exercise - weight-bearing exercise 30 min/day, as tolerated Thank you for allowing us to provide care for your patient Case discussed with Dr. Johnson and communicated with the team. Stacie Ortiz MD, PhD PGY-4 Endocrinology Fellow I saw this patient with Dr Ortiz . I reviewed the diaz portions of the history and physical exam, and reviewed pertinent lab data. I answered all patient questions. I was involved in all medical decision making and agree with this plan. * Shelli Khan, - 11/09/2023 6:51 AM EST Images from the original note were not included. VASCULAR NEUROLOGY DAILY PROGRESS NOTE Admit Date 11/06/2023 Responsible Attending: Galilea Fournier MD Primary Provider: Bobby Das MD [phone] Hospital Day: Hospital Day: 4 Patient ID 83 y.o. male with PMHx of permanent AFIB (on Eliquis though held after dose 11/01), TII DM, CAD s/pstenting May (on Plavix), HLD, HFrEF, MV repair for mitral valve prolapse in 2000, prior GIB on ASA (iso duodenal and colonic angiectasias), PAD (s/p LLE ACLI s/p embolectomy with 4 compartment fasciotomy), and basal cell carcinoma who presented to the ED as a stroke alert for acute onset of Rsided weakness, AMS, and aphasia, now s/p tPA. 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 24hr Events: - NAEO. Reports still feeling nauseous this AM. Strength is improved and he has no questions this visit. - Soft blood pressure (SBP 93 after Coreg dose). Leukocytosis resolved; Glucose better controlled this AM. - Acute rehab when MR for d/c - Holding AC temporarily in setting of acute stroke (plan to resume in 5-6 days from 11/08). - Last Bowel Movement: 11/07/23 EXAM Last value Range last 24 hrs Temperature Temp: 36.7 ??C (98 ??F) Temp: [36.6 ??C (97.8 ??F)-36.9 ??C (98.4 ??F)] Heart Rate Heart Rate: 90 Heart Rate: [79-114] Blood Pressure BP: 112/69 BP: (93-136)/(58-104) Respiratory Rate Resp: 26 Resp: [14-26] SpO2 SpO2: 97 % SpO2: [93 %-98 %] GEN- Awake/alert, oriented to self and age, following simple commands appropriately, there is some loss of fluency of speech, mild to moderate dysarthria, naming intact today (watch, dial, thumb, fingernail, knuckles) CN- Pupils miotic and L slightly smaller vs the R but both reactive, VFFTC, EOMI, R facial droop, tongue midline, palate rises symmetrically MOTOR- RUE/RLE antigravity with drift (improved from yesterday), No drift in LUE/LLE SENSATION - intact and symmetric to LT in BUE/BLE without evidence of sensory extinction CEREBELLUM - FTN intact (has some difficulty performing this on the RUE though not clearly ataxic -likely 2/2 weakness), HTS intact DATA I/O last 3 completed shifts: In: 1080 [P.O.:1080] Out: 975 [Urine:975] Labs Recent Labs 11/09/23 0618 11/08/2322611/07/2322911/06/23 1007 WBC 9.0 10.0* 9.7* 9.6* HGB 16.3 15.6 15.8 16.2 HCT 47.1 45.3 46.4 47.2 PLATELET 130* 152 154 154 NEUTROABS 6.30* 7.19* 6.89* 6.25* Recent Labs 11/08/2322611/07/23 0230 11/06/23 1007 NA 142 138 142 K 4.2 3.9 4.7 CL 107 102 105 CO2 23 24 26 BUN 26* 19 24* CREATININE 0.88 0.79* 0.87 GLUCOSE 229* 164 248* Recent Labs 11/08/2322611/07/23 02311/06/23 1007 CALCIUM 8.8 9.0 9.1 MAGNESIUM 0.89 0.94 0.90 PHOS 3.2 2.9 2.7 No results for input(s): AST, ALT, ALKPHOS, BILITOT, BILIDIR, LDH in the last 168 hours. No results for input(s): TROPONINT, CK in the last 168 hours. No results for input(s): PHART, DVM5BYR, PO2ART, DZF5EDG in the last 168 hours. Recent Labs 11/06/23 1007 INR 1.0 Lipid Panel Lab Results Component Value Date CHLPL 192 11/06/2023 HDL 61 11/06/2023 CHOLHDL 3.1 11/06/2023 LDLDIRECT 112 11/06/2023 Lab Results Component Value Date HA1C 7.7 (H) 11/06/2023 Micro - cultures/sensitivities UCx - None CSF - None Blood Cx - None Resp Cx - None Imaging/EKG Results for orders placed or performed during the hospital encounter of 11/06/23 XR Chest AP and Pelvis AP Trauma (Generic) (Exam End: 11/06/2023 10:08 AM) Impression No acute radiographically evident abnormality in the visualized chest or pelvis. I have personally reviewed the image(s) and the resident's interpretation and agree with the findings, Robyn Najera MD at 11/06/2023 11:47 AM Thank you for letting us participate in the care of this patient. If you are a health care provider and have any questions regarding this report, please contact the number below. For patients who have questions please contact the health health care attorney that requested your imaging first. Head wo & Multiphase CTA Head/Neck (THROMBECTOMY PROTOCOL) (Exam End: 11/06/2023 10:40 AM) Impression 1. No acute intracranial hemorrhage. 2. Occlusion of the left pericallosal BRUCE. 3. 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 4. Severe stenosis of the left ICA origin. 5. Severe stenosis of the right vertebral artery origin. 6. Remote left inferior frontal infarcts. Thank you for letting us participate in the care of this patient. If you are a health care provider and have any questions regarding this report, please contact the number below. For patients who have questions please contact the health health care attorney that requested your imaging first. Cervical Spine Reconstruction (Exam End: 11/06/2023 10:40 AM) Impression 1. No acute fracture or malalignment. 2. Diffuse osseous demineralization and multilevel degenerative changes throughout the spine as described. I have personally reviewed the image(s) and the resident's interpretation and agree with the findings, Edson Danielle DO at 11/06/2023 11:29 AM Thank you for letting us participate in the care of this patient. If you are a health care provider and have any questions regarding this report, please contact the number below. For patients who have questions please contact the health health care attorney that requested your imaging first. Chest Abdomen Pelvis w Contrast (Generic) (Exam End: 11/06/2023 10:40 AM) Impression No evidence of acute thoracic or abdominal pathology. Thank you for letting us participate in the care of this patient. If you are a health care provider and have any questions regarding this report, please contact the number below. For patients who have questions please contact the health health care attorney that requested your imaging first. Thoracic Spine Reconstruction (Exam End: 11/06/2023 10:40 AM) Impression 1. No acute fracture or malalignment. 2. Diffuse osseous demineralization and multilevel degenerative changes throughout the spine as described. I have personally reviewed the image(s) and the resident's interpretation and agree with the findings, Edson Danielle DO at 11/06/2023 11:29 AM Thank you for letting us participate in the care of this patient. If you are a health care provider and have any questions regarding this report, please contact the number below. For patients who have questions please contact the health health care attorney that requested your imaging first. Lumbar Spine Reconstruction (Exam End: 11/06/2023 10:40 AM) Impression 1. No acute fracture or malalignment. 2. Diffuse osseous demineralization and multilevel degenerative changes throughout the spine as described. I have personally reviewed the image(s) and the resident's interpretation and agree with the findings, Edson Danielle DO at 11/06/2023 11:29 AM Thank you for letting us participate in the care of this patient. If you are a health care provider and have any questions regarding this report, please contact the number below. For patients who have questions please contact the health health care attorney that requested your imaging first. Shoulder Right (Generic) (Exam End: 11/06/2023 11:54 AM) Impression No acute fracture or dislocation Thank you for letting us participate in the care of this patient. If you are a health care provider and have any questions regarding this report, please contact the number below. For patients who have questions please contact the health health care attorney that requested your imaging first. Electronically signed by: Shannen Sánchez MD, [facility] ([phone]), at 11/06/2023 12:02 PM XR Elbow 3 Views Right (GENERIC) (Exam End: 11/06/2023 11:54 AM) Impression 1. No acute fracture. 2. Normal osseous alignment 3. No elbow effusion. Thank you for letting us participate in the care of this patient. If you are a health care provider and have any questions regarding this report, please contact the number below. For patients who have questions please contact the health health care attorney that requested your imaging first. Electronically signed by: Shannen Sánchez MD, [facility] ([phone]), at 11/06/2023 12:00 PM XR Wrist 3 Views Right (Exam End: 11/06/2023 11:54 AM) Impression 1. No acute fracture. 2. Normal osseous alignment 3. No elbow effusion. Thank you for letting us participate in the care of this patient. If you are a health care provider and have any questions regarding this report, please contact the number below. For patients who have questions please contact the health health care attorney that requested your imaging first. Electronically signed by: Shannen Sánchez MD, [facility] ([phone]), at 11/06/2023 12:00 PM XR Knee 1-2 Views Right (Generic) (Exam End: 11/06/2023 11:54 AM) Impression 1. 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 2. Small effusion without lipohemarthrosis 3. No acute fractures seen. Thank you for letting us participate in the care of this patient. If you are a health care provider and have any questions regarding this report, please contact the number below. For patients who have questions please contact the health health care attorney that requested your imaging first. Electronically signed by: Shannen Sánchez MD, [facility] ([phone]), at 11/06/2023 11:57 AM MRI Brain wo Contrast (Exam End: 11/06/2023 10:08 PM) Impression 1. Acute infarct in the left superior frontal gyrus, compatible with a left BRUCE territory infarct. No associated hemorrhage 2. Additional punctate foci of restricted diffusion, in the right precentral gyrus, bilateral lateral inferior frontal gyri and left centrum semiovale, compatible with punctate embolic infarcts. 3. No evidence of associated hemorrhagic conversion. Thank you for letting us participate in the care of this patient. If you are a health care provider and have any questions regarding this report, please contact the number below. For patients who have questions please contact the health health care attorney that requested your imaging first. Head wo Contrast (Generic) (Exam End: 11/07/2023 11:17 AM) Impression Localized left BRUCE infarct primarily involving the superior frontal gyrus as above without evidence of significant mass effect or hemorrhage. Thank you for letting us participate in the care of this patient. If you are a health care provider and have any questions regarding this report, please contact the number below. For patients who have questions please contact the health health care attorney that requested your imaging first. Brain wo Contrast (Exam End: 11/08/2023 1:19 PM) Impression No definitive interval infarct. There are more conspicuous small foci of diffusion restriction along the anterior left cingulate gyrus. 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 Few punctate foci of diffusion restriction again noted over the frontal convexities. Thank you for letting us participate in the care of this patient. If you are a health care provider and have any questions regarding this report, please contact the number below. For patients who have questions please contact the health health care attorney that requested your imaging first. 11/06/23 Interpretation Summary Mildly to moderately reduced left ventricular systolic function. LVEF 40-45%. Normal right ventricular systolic function Sclerotic aortic valve with moderate stenosis and mild insufficiency Mild valve repair with mild stenosis Severe left and moderate right atrial enlargement Mildly dilated aortic root and proximal ascending aorta (both 4.0 cm) Compared with study of 09/05/2022, systolic function has improved, aortic stenosis has progressed, aorta size is similar (3.9 cm for root and ascending on prior) ASSESSMENT & PLAN Koko Zamora is an 83 y.o. male with PMHx of permanent AFIB (on Eliquis though held after dose11/01), TII DM, CAD s/p stenting May (on Plavix), HLD, HFrEF, MV repair for mitral valve prolapse in 2000, prior GIB on ASA (iso duodenal and colonic angiectasias), PAD (s/p LLE ACLI s/p embolectomy with 4 compartment fasciotomy), and basal cell carcinoma who presented to the ED as a stroke alert for acute onset of R sided weakness, AMS, and aphasia, now s/p tPA. 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 11/09/23 - Neurological exam demonstrates some improvement in right-sided weakness compared to yesterday, though patient still reports some nausea but MRI seems stable. Will have Zofran PRN and will continue single antiplatelet agent, resume anticoagulation on Friday or Friday this upcoming week. Discussed with GI given his history of multiple GIB. There is felt to be no utility in performing EGD prophylactically, and given his stable Hgb no objection to giving Plavix if indicated from strokeperspective. His PPI was increased to BID for now for GI Ppx. Attempted to reconcile his medications today but patient deferred asking me to talk to his . I asked if I could call I'm but the patient preferred me to wait until she is here today. I will try to catch her later today if not give her a call. He is unsure if he takes coreg or metoprolol and he is still tachycardic on monitor. Coregwas started yesterday, but shortly after it was given it was associated with soft Bps. Will change to low dose metoprolol Q6Hrs for tight control while we try to figure out exactly what medications he is taking. #L BRUCE territory infarct and small foci of R hemispheric infarct iso holding AC for upcoming Watchmen procedure -s/p tpa (given at 1101 on 11/06) -floor level of care -VS / NC q4h -SBP goal <180 (PRN labetalol, vasotec) -Plavix load 300 mg (11/07) followed by 75 mg daily for now -holding home Eliquis (tentatively plan to restart ~Oct 11 - if stable) -continue home crestor 40 mg daily -CTH/CTA as above -MRI brain wo as above and repeat MRI without new infarct. 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 - Start Metoprolol 12.5mg Q6Hrs today. - holding home Eliquis 2.5 mg BID (reduced dose given prior GIB) - holding home tretinoin cream - tamsulosin 0.4 mg daily - PRN tylenol #Routine: Diet: Carb Control diet 60/60/75 CHO counting level 2 DVT Ppx: lovenox 40 mg nightly Last Bowel Movement: 11/07/23 Code status: Attempt Cardiopulmonary Resuscitation - Inpatient Patient Lines/Drains/Airways Status Active Tubes/Lines/Drains Name Placement date Placement time Site Days PIV 11/06/23 1030 20 gauge basilic vein (medial side of arm), left 11/06/23 1030 -- 3 PIV 11/06/23 0954 cephalic vein (lateral side of arm), right 11/06/23 0954 -- 3 Please page Vascular Neurology with any questions, #[phone] Shelli Khan DO Department of Neurology [place] [phone] Associated attestation - Galilea Fournier MD - 11/09/2023 2:05 PM EST Neurology Staff Note I have reviewed the resident's history during the visit and I agree with the details as written. Myphysical examination confirms the resident's findings. The assessment and plan were formulated in discussion with me at the time of the visit and I agree with them as documented. Still with fluctuations in nausea and weakness. Adjusting home cardiac meds for optimal BP and HR control here. Repeat MRI for worsening arm weakness. * Parag Phelps RN - 11/09/2023 2:11 AM EST 2:11 AM To Pager number: [phone] From Submitter: Parag Phelps Urgency Level: Call Me Callback Number: [phone] The following Message was sent: [Call Me] - Callback:[phone] Elle Zamora needs something to help him sleep please.has not slept for 2 nights. - Parag Phelps * Barbie Long APRN - 11/08/2023 7:16 AM EST Images from the original note were not included. VASCULAR NEUROLOGY DAILY PROGRESS NOTE Admit Date 11/06/2023 Responsible Attending: Galilea Fournier MD Primary Provider: Bobby Das MD [phone] Hospital Day: Hospital Day: 3 Patient ID 83 y.o. male with PMHx of permanent AFIB (on Eliquis though held after dose 11/01), TII DM, CAD s/pstenting May (on Plavix), HLD, HFrEF, MV repair for mitral valve prolapse in 2000, prior GIB on ASA (iso duodenal and colonic angiectasias), PAD (s/p LLE ACLI s/p embolectomy with 4 compartment fasciotomy), and basal cell carcinoma who presented to the ED as a stroke alert for acute onset of Rsided weakness, AMS, and aphasia, now s/p tPA. 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 24hr Events: - NAEO. Reports feeling queezy this AM. - Slightly tachycardic, known chronic afib. Mild leukocytosis on labwork. Glucose elevated. - Acute rehab when MR for d/c - Plavix load yesterday, now on Plavix 75mg daily. Holding AC temporarily in setting of acute stroke. - Last Bowel Movement: 11/07/23 EXAM Last value Range last 24 hrs Temperature Temp: 36.9 ??C (98.4 ??F) Temp: [36.8 ??C (98.2 ??F)-37.1 ??C (98.8 ??F)] Heart Rate Heart Rate: 92 Heart Rate: [92-119] Blood Pressure BP: 106/65 BP: (103-132)/(62-81) Respiratory Rate Resp: 24 Resp: [14-28] SpO2 SpO2: 93 % SpO2: [93 %-98 %] GEN- Awake/alert, oriented to self and age, following simple commands appropriately, there is some loss of fluency of speech, mild to moderate dysarthria, naming intact today (watch, dial, thumb, fingernail, knuckles) CN- PERRL, VFFTC, EOMI, R facial droop, tongue midline, palate rises symmetrically MOTOR- RUE/RLE antigravity with drift (improved from yesterday), No drift in LUE/LLE SENSATION - intact and symmetric to LT in BUE/BLE without evidence of sensory extinction CEREBELLUM - FTN intact (has some difficulty performing this on the RUE though not clearly ataxic -likely 2/2 weakness), HTS intact DATA I/O last 3 completed shifts: In: 520 [P.O.:520] Out: 1425 [Urine:1425] Labs Recent Labs 11/08/2322611/07/230 11/06/23 1007 WBC 10.0* 9.7* 9.6* HGB 15.6 15.8 16.2 HCT 45.3 46.4 47.2 PLATELET 152 154 154 NEUTROABS 7.19* 6.89* 6.25* Recent Labs 11/08/2322611/07/23 0230 11/06/23 1007 NA 142 138 142 K 4.2 3.9 4.7 CL 107 102 105 CO2 23 24 26 BUN 26* 19 24* CREATININE 0.88 0.79* 0.87 GLUCOSE 229* 164 248* Recent Labs 11/08/2322611/07/2322911/06/23 1007 CALCIUM 8.8 9.0 9.1 MAGNESIUM 0.89 0.94 0.90 PHOS 3.2 2.9 2.7 No results for input(s): AST, ALT, ALKPHOS, BILITOT, BILIDIR, LDH in the last 168 hours. No results for input(s): TROPONINT, CK in the last 168 hours. No results for input(s): PHART, QIE0EFR, PO2ART, CWX5ILY in the last 168 hours. Recent Labs 11/06/23 1007 INR 1.0 Lipid Panel Lab Results Component Value Date CHLPL 192 11/06/2023 HDL 61 11/06/2023 CHOLHDL 3.1 11/06/2023 LDLDIRECT 112 11/06/2023 Lab Results Component Value Date HA1C 7.7 (H) 11/06/2023 Micro - cultures/sensitivities UCx - None CSF - None Blood Cx - None Resp Cx - None Imaging/EKG CTH / CTA 11/06/23: IMPRESSION 1. No acute intracranial hemorrhage. 2. Occlusion of the left pericallosal BRUCE. 3. 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 4. Severe stenosis of the left ICA origin. 5. Severe stenosis of the right vertebral artery origin. 6. Remote left inferior frontal infarcts. MRI brain wo contrast 11/06/23: IMPRESSION 1. Acute infarct in the left superior frontal gyrus, compatible with a left BRUCE territory infarct. No associated hemorrhage 2. Additional punctate foci of restricted diffusion, in the right precentral gyrus, bilateral lateral inferior frontal gyri and left centrum semiovale, compatible with punctate embolic infarcts. 3. No evidence of associated hemorrhagic conversion. ASSESSMENT & PLAN Koko Zamora is an 83 y.o. male with PMHx of permanent AFIB (on Eliquis though held after dose11/01), TII DM, CAD s/p stenting May (on Plavix), HLD, HFrEF, MV repair for mitral valve prolapse in 2000, prior GIB on ASA (iso duodenal and colonic angiectasias), PAD (s/p LLE ACLI s/p embolectomy with 4 compartment fasciotomy), and basal cell carcinoma who presented to the ED as a stroke alert for acute onset of R sided weakness, AMS, and aphasia, now s/p tPA. 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 11/08/23 - Neurological exam demonstrates some improvement in right-sided weakness compared to yesterday, though patient reports queeziness. Plan to repeat MRI brain for interval assessment. Additionally: Replete with Mg IV for serum goal > 1 and will increase Coreg given ongoing tachycardia in setting of known chronic afib DM consult for persistent hyperglycemia Asked CM to speak with to obtain AR referrals Monitor leukocytosis for now: no overt evidence of infection Downgrade to floor status Plan for single antiplatelet agent, resume anticoagulation in 5-7 days. Discussed with GI given his history of multiple GIB. There is felt to be no utility in performing EGD prophylactically, and given his stable Hgb no objection to giving Plavix if indicated from strokeperspective. I will increase his PPI to BID for now for GI Ppx. Also discussed with family today and daughter states she will attempt to confirm home meds as home med regimen is somewhat unclear (pt does not think he has been taking both Plavix and Eliquis for at least several months). He has also been slightly tachycardic and will need to consider restarting carvedilol once his dose is confirmed(also need to confirm that he was taking this rather than metoprolol). 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 #Other meds - insulin lispro (in lieu of home metformin) - Carvedilol 3.125 mg BID -> increase to 6.25 BID amid ongoing tachycardia (11/08) - holding home Eliquis 2.5 mg BID (reduced dose given prior GIB) - holding home tretinoin cream - tamsulosin 0.4 mg daily - PRN tylenol #Routine: Diet: Carb Control diet 60/60/75 CHO counting level 2 DVT Ppx: lovenox 40 mg nightly Last Bowel Movement: 11/07/23 Code status: Attempt Cardiopulmonary Resuscitation - Inpatient Patient Lines/Drains/Airways Status Active Tubes/Lines/Drains Name Placement date Placement time Site Days PIV 11/06/23 1030 20 gauge basilic vein (medial side of arm), left 11/06/23 1030 -- 2 PIV 11/06/23 0954 cephalic vein (lateral side of arm), right 11/06/23 0954 -- 2 Please page Vascular Neurology with any questions, #[phone] Total time 30 minutes was spent on pre-charting, reviewing diagnostic studies and patient chart, and formulating plan for today as well as patient education and counseling on plan as outlined above. Barbie Long APRN Department of Neurology [place] [phone] Associated attestation - Galilea Fournier MD - 11/08/2023 11:12 AM EST This patient was seen in conjunction with Barbie Long. I performed the majority of this shared visit based on medical decision making. Galilea Fournier MD 83 yo man with R leg weakness. Today with nausea and dizziness - new upon wakening On exam R facial droop, R arm sustains antigravity, R leg drifts but not to bed. Nonfluent aphasia but able to name and repeat. Mild dysarthria. A/P: 83 yo man with multifocal strokes. Likely cardioembolic. S/p IV TPA. Plan for single antiplatelet agent, resume anticoagulation in 5-7 days. Given the new nausea/dizziness today will repeat MRI brain STAT to ensure no bleeding or no new infarcts. Acute rehab candidate. * Radha Hartley, PT - 11/07/2023 9:37 AM EST Physical Therapy Evaluation Patient profile: Koko Zamora is a 83 y.o. with PMH of permanent AFIB (on Eliquis though held after dose 11/01), TII DM, CAD s/p stenting May (on Plavix), HLD, HFrEF, MV repair for mitral valve prolapse in 2000, prior GIB on ASA (iso duodenal and colonic angiectasias), PAD (s/p LLE ACLI s/p embolectomy with 4 compartment fasciotomy), and basal cell carcinoma who presented to the ED as astroke alert for acute onset of R sided weakness, AMS, and aphasia. Patient with the following active problems: No past medical history on file. Active Non-Hospital Problems Diagnosis GI bleed Coronary artery disease involving ambler coronary artery of ambler heart without angina pectoris HFrEF (heart failure with reduced ejection fraction) Permanent atrial fibrillation Limb ischemia History of basal cell carcinoma Basal cell carcinoma Verruca vulgaris AK (actinic keratosis) GIB (gastrointestinal bleeding) MVP (mitral valve prolapse) s/p repair Hypertriglyceridemia Adhesive capsulitis of L shoulder Alcohol use Past Surgical History: Procedure Laterality Date IR BIOPSY SPINE 07/20/2019 IR Biopsy Spine 07/20/2019 Bobby Marshall MD [facility] IR VERTEBROPLASTY LUMBAR MULTIPLE LEVELS 07/20/2019 IR Vertebroplasty Lumbar Multiple Levels 07/20/2019 Bobby Marshall MD [facility] IR VERTEBROPLASTY THORACIC SINGLE LEVEL 10/25/2020 IR Vertebroplasty Thoracic Single Level 10/25/2020 Matt Chisholm MD [facility] PRO COLONOSCOPY, DIAGNOSTIC N/A 12/09/2022 COLONOSCOPY, DIAGNOSTIC performed by Giovani Ponce MD at [facility] PRO COLONOSCOPY, FLEX, W/CONTROL, BLEEDING N/A 06/25/2022 COLONOSCOPY; W CONTROL OF BLEEDING, ANY METHOD performed by Giovani Ponce MD at [facility] PRO EMBLC/THRMBC FEMORAL POPLITEAL AORTO-ILIAC ARTERY Left 05/15/2022 EMBOLECTOMY OR THROMBECTOMY, FEMOROPOPLITEAL, AORTOILIAC ARTERY BY LEG INCISION (WRVU 19.48) performed by Fito Summers MD at [facility] MA[facility] OR PRO SMALL BOWEL ENDOSCOPY, PAST 2ND DUOD N/A 06/25/2022 SMALL BOWEL ENTEROSCOPY performed by Giovani Ponce MD at [facility] PRO UPPER GI ENDOSCOPY, CTRL BLEED 05/31/2022 EGD, W CONTROL OF BLEEDING, ANY METHOD performed by Giovnai Ponce MD at [facility] PRO UPPER GI ENDOSCOPY, DIAGNOSTIC N/A 05/31/2022 EGD, UPPER GI ENDOSCOPY performed by Giovani Ponce MD at [facility] PRO UPPER GI ENDOSCOPY, DIAGNOSTIC N/A 06/25/2022 EGD, UPPER GI ENDOSCOPY performed by Giovani Ponce MD at [facility] Social History: will need to confirm and gather additional details d/t aphasia Home set-up: Pt lives with his Lesly in a multi-level home in [place], [place]. All of his needs are met on the first floor. Stairs: 5STE Baseline Mobility: Pt is typically independent with ADLs, IADLs, and mobility at baseline. He ambulates without a device, drives, and is retired. Equipment at home: unknown Fall history: fall at time of admission Precautions/Special Considerations: at risk to fall, SBP <180, expressive aphasia Lines: PIV, telemetry Activity Orders: up with assistance Diet: carb control Mobility and Positioning Recommendations: Pt. to utilize 2 assist for stand-pivot transfers with nursing. Please encourage up to chair for meal times as able. Subjective: ???Uhh... normally no?? when asked if pt uses cane at baseline. Limited ability to answer open-ended questions, does well with yes/no Objective: Pt seen for evaluation today. Pain: No c/o pain Vital Signs: At Rest With Activity SpO2 (RA) 99% 96% BP 113/54 122/81 HR 99bpm 118bpm Mental Status: alert, engaged and cooperative. Expressive aphasia, impaired word finding Vision: corrective lenses at bedside, unclear if distance vs reading Skin: abrasions to R knee and elbow Musculoskeletal: ROM: PROM WFL with exception of R knee, some stiffness/limitation to extension. Strength: R sided weakness and inattention, RLE ~3/5, difficulty with formal testing but inc strength noted in functional activity Sensation: dec R sided sensation vs L Bed Mobility: Supine to Sit: min assist x2 with HOB elevated, handhold. Assist for initiation Sit to Supine: NA Transfers: Sit to Stand: min assist x2 with handhold from bed, mod assist x1 from toilet Stand to Sit: min assist, dec ecc control Bed to Chair: stand-pivot transfer from bed to chair with min assist x2, stand- pivot transfer from toilet to chair with mod assist x1 Gait: NA; see transfers section above Stairs: NA Balance: Sitting Static: good, maintains sitting balance with supervision Sitting Dynamic: fair Standing Static: fair Standing Dynamic / Gait: fair(-) Education: patient has been educated on Bed mobility, Transfers, Positioning, Safety , Precautions/protocol, Role of therapy, and Discharge planning and verbalizes and demonstrates understanding. Patient status, treatment, and mobility recommendations discussed with nursing. Assessment: Koko Zamora was seen today for physical therapy evaluation. Pt presented to the ED as a stroke alert for acute onset of R sided weakness, AMS, and aphasia, now s/p tPA. He presentedwith expressive aphasia today, but was pleasant and agreeable to participate in mobility assessment. Upon evaluation, patient presents with decreased strength, decreased ROM, impaired sensation, impaired balance, impaired activity tolerance, impaired gait mechanics, impaired endurance, impaired attention, impaired safety awareness, impaired posture, and decreased insight, resulting in functional limitation. At this time, pt presents significantly below baseline level of independence, and would be an excellent candidate for acute rehab once medically ready for d/c. The pt would benefit from skilled therapy services while in the hospital to maximize functional abilities. Discharge Recommendations: Based on the current findings, Anticipated Discharge Disposition (PT): acute rehabilitation facility when medically ready for hospital discharge. Discharge recommendation is based on the patient's current physical impairments, prior functional status, potential to return to prior level of function, patient motivation, reported home support, potential for functional gains, current level of endurance, reported home environment and anticipated trajectory of progress and may change based on patient progress during this hospitalization. Consult Recommendations: No other consults recommended at this time. Equipment needs: Anticipated Equipment Needs at Discharge (PT): to be determined Goals: To be achieved by 11/21/23: Pt. to demonstrate knowledge of safety limitations and precautions and will appropriately request assistance for functional activities and to mobilize. Pt. to perform bed mobility with supervision. Pt. to perform sit<>stand transfers with supervision using LRAD. Pt. to ambulate 50 feet with supervision using LRAD. Family or caregiver to demonstrate understanding of therapeutic interventions to support the care of the patient. Pt will tolerate progression towards upright with stable vital signs. Plan: Therapy Frequency (PT): 2-4 times/wk for therapy including balance training, bed mobility training, gait training, patient/family education, postural re-education, stair training, strengthening, and transfer training. Patient/family understand and agree with plan as stated above. 2017 PT Evaluation Code Rationale: Diagnosis & Pertinent Co-Morbidities, personal factors, and present illness affecting Plan of Care: (see above); Additional personal factors or co- morbidities that impact plan: Total # of Factors: 0 1-2 3+ X Examination of body system impairments, functional limitations and behaviors, and/or participation restrictions. Addressing 1-2 elements Addressing 3 + elements X Addressing 4 + elements Clinical presentation: See assessment above. Stable/Uncomplicated Evolving/Fluctuating Symptoms Unstable/Unpredictable X- exp aphasia, R inattention, afib Clinical decision making of moderate complexity based on pt's functional performance as outlined inthis evaluation. Time IN / OUT: 7128-4993 Total Minutes, Physical Therapy: 30 Billing Code: mod complexity eval Radha Hartley, PT Pager: [phone] Physical Therapy Inpatient Rehabilitation Department * Kaylene Ramirez, OT - 11/07/2023 9:06 AM EST Occupational Therapy Evaluation Patient profile: Koko Zamora is a 83 y.o. with PMH of permanent AFIB (on Eliquis though held after dose 11/01), TII DM, CAD s/p stenting May (on Plavix), HLD, HFrEF, MV repair for mitral valve prolapse in 2000, prior GIB on ASA (iso duodenal and colonic angiectasias), PAD (s/p LLE ACLI s/p embolectomy with 4 compartment fasciotomy), and basal cell carcinoma who presented to the ED as astroke alert for acute onset of R sided weakness, AMS, and aphasia. S/p tPA 1101 11/06. No past medical history on file. Past Surgical History: Procedure Laterality Date IR BIOPSY SPINE 07/20/2019 IR Biopsy Spine 07/20/2019 Bobby Marshall MD [facility] IR VERTEBROPLASTY LUMBAR MULTIPLE LEVELS 07/20/2019 IR Vertebroplasty Lumbar Multiple Levels 07/20/2019 Bobby Marshall MD [facility] IR VERTEBROPLASTY THORACIC SINGLE LEVEL 10/25/2020 IR Vertebroplasty Thoracic Single Level 10/25/2020 Matt Chisholm MD [facility] PRO COLONOSCOPY, DIAGNOSTIC N/A 12/09/2022 COLONOSCOPY, DIAGNOSTIC performed by Giovani Ponce MD at [facility] PRO COLONOSCOPY, FLEX, W/CONTROL, BLEEDING N/A 06/25/2022 COLONOSCOPY; W CONTROL OF BLEEDING, ANY METHOD performed by Giovani Ponce MD at [facility] PRO EMBLC/THRMBC FEMORAL POPLITEAL AORTO-ILIAC ARTERY Left 05/15/2022 EMBOLECTOMY OR THROMBECTOMY, FEMOROPOPLITEAL, AORTOILIAC ARTERY BY LEG INCISION (WRVU 19.48) performed by Fito Summers MD at [facility] MA[facility] OR PRO SMALL BOWEL ENDOSCOPY, PAST 2ND DUOD N/A 06/25/2022 SMALL BOWEL ENTEROSCOPY performed by Giovani Ponce MD at [facility] PRO UPPER GI ENDOSCOPY, CTRL BLEED 05/31/2022 EGD, W CONTROL OF BLEEDING, ANY METHOD performed by Giovani Ponce MD at [facility] PRO UPPER GI ENDOSCOPY, DIAGNOSTIC N/A 05/31/2022 EGD, UPPER GI ENDOSCOPY performed by Giovani Ponce MD at [facility] PRO UPPER GI ENDOSCOPY, DIAGNOSTIC N/A 06/25/2022 EGD, UPPER GI ENDOSCOPY performed by Giovani Ponce MD at [facility] Social History: Patient lives with his , Lesly. All needs can be mot on the 1st floor, 5 steps to enter. DME: unknown Baseline ADL/Mobility: independent with ADL, IADL, drives, ? uses cane occasionally. Precautions/Special Considerations: fall risk, SBP <180, expressive aphasia, R inattention Activity order: up with assistance Subjective: yes. Objective: Seen today for OT evaluation. Cognitive Status/Behavior: Behavior / Mood: alert and cooperative Alert and oriented to: person; place, situation, month/year with choice of 2 Follows commands: 1 step and 100% of the time Attention: WFL Safety awareness: decreased insight into deficits R inattention Vision & Perception: corrective lenses for reading Tracks appropriately with cuing Communication: Expressive aphasia Musculoskeletal: Hand dominance: right ROM: grossly WFL Strength: RUE: shoulder flexion 1/5, biceps 3-/5, grasp 3-/5 LUE WFL BLE moving against gravity Fine Motor: RUE able to touch index finger to therapists and then bring to nose 3/3 times, therapists hand needed to be almost touching his for him to reach out LUE WFL Sensation: diminished R hemibody Activities of Daily Living: Self-feeding: NPO Grooming: set up for oral care in bedside chair Dressing: max A for socks Toileting: mod A for transfer, max A for hygiene while standing Functional Mobility: Supine to sit: min A of 2 with HOB raised Sit to stand: min A of 2 Ambulation: a few steps to turn to chair and then to toilet with min A of 2 Stand to sit: min A of 2 Sit to supine: not observed - pt up on chair at end of session Balance: Sitting balance: fair+ Standing balance: fair IADL???s: Assistance available to patient via and daughter Vitals: SpO2 98% RA, HR 111, BP 122/81 after transfer Pain: R knee and elbow from fall Education: ADL, Safety, Functional Mobility, and Balance Patient status, treatment, and mobility recommendations discussed with nursing. Assessment: Pt has been seen for occupational therapy evaluation. Koko Zamora presents with the following performance skill deficits and client factors: increased pain, decreased activity tolerance, decreased strength, decreased sitting/standing balance, sensory deficits, communication deficits, and compromised mobility status. These performance deficits have led to activity limitations andparticipation restrictions in the following areas of occupation: dressing, bathing, grooming, toileting, transfers/mobility, and home management. Pt pleasant and cooperative, expressive language deficits, RUE weak with difficulty lifting against gravity, mild R inattention. Anticipate need for acute rehab. Pt would benefit from further inpatient OT interventions to address performance deficits and maximize participation and independence with occupations of daily living. Equipment needs at discharge: TBD at rehab Anticipated Discharge Disposition (OT): acute rehabilitation facility EPM Level 4: Pivot to chair/commode, Participate in self care Activity Recommendations: OOB to chair for all meals Promote normalcy by encouraging participation in common daily tasks & leisure activities by providing set up assist Frequent orientation verbally & visually with calendars/clocks/whiteboard Facilitate a normal sleep-wake cycle Provide brief, clear instruction and direction from one source at a time Reduce extraneous stimulation Goals: To be achieved by 11/24/23 Pt will perform grooming routine sitting/standing at sink supervision. Pt will dress LB with supervision using adaptive equipment as needed. Pt will transfer on/off commode/chair with supervision. Pt will perform toileting routine with supervision. Pt will ambulate in room for ADL with supervision using least restrictive device. Pt will consistently make basic needs known using AE as needed. Pt will consistently locate ADL items placed on his R side during functional activity. Plan: Therapy Frequency (OT): 2-4 times/wk Planned OT interventions: Transfers, Assistive device/technique, ADL, Exercise, Safety, Functional Mobility, Balance, Recommendations, and Discharge planning. Total Minutes, Occupational Therapy: 29 (eval [id number]) 2017 OT Evaluation Code Rationale: Diagnosis & Pertinent Co-Morbidities affecting Plan of Care: see PMHx Occupational Profile & Client History: Brief Expanded Extensive X Assessment of Occupational Performance: 1-3 performance deficits 3-5 performance deficits 5 + performance deficits X Clinical Decision Making: Low Moderate High X Clinical decision making of moderate complexity using standardized patient assessment instrument and measurable assessment of functional outcome. Pager: [phone] KAYLENE RAMIREZ OT 11/11/2023 Occupational Therapy Rehabilitation Department * Corrie Mcdaniel MD - 11/06/2023 1:17 PM EST Trauma Surgery Cervical Spine Evaluation ID: Koko Zamora ( ) is a 83 y.o. male admitted on 11/06/2023 s/p GLF s/p ACS stroke CT Cervical Spine: 1. No acute fracture or malalignment. 2. Diffuse osseous demineralization and multilevel degenerative changes throughout the spine as described. Physical Exam: Mental Status: Alert, oriented, responds to question appropriately. Not intoxicated. C-spine: No cervical spine bony tenderness, crepitance, or stepoff. Full range of motion without pain, including neck flexion, extenion, and L/R rotation to >45 degrees. Neuro: No focal deficit. Assessment & Plan: - cervical spine cleared radiographically and clinically - collar removed, no c-spine precautions Corrie Mcdaniel MD 11/06/2023 1:17 PM Associated attestation - Kel Campos MD - 11/10/2023 2:30 AM EST I have seen the patient in person and reviewed the above history and I agree with the details as written. The assessment and plan were formulated in discussion with me and I agree with them as documented. Kel Campos MD documented in this encounter H&P Notes * Miguel Arias DO - 11/07/2023 7:12 AM EST Neurology History and Physical Patient name:Koko Zamora Date of :1940 Admit date: 11/06/2023 Attending: Galilea Fournier CC: R sided weakness Date last well known:: 11/06/23 Time last well known:: 933 Date of discovery of symptoms:: 11/06/23 Time of discovery of symptoms:: 956 Was IV Thrombolytics given?: Yes Was dysphagia screen performed?: Yes Date of Dysphagia Screen: 11/06/23 Time of Dysphagia Screen: 1036 Did patient pass dysphagia screen?: No NIH Stroke Scale NIH Stroke Scale Date 11/06/23 NIH Stroke Scale Time 1030 Level of Consciousness 1 LOC Questions 0 LOC Commands 0 Best Gaze 0 Vision 0 Facial Palsy 0 Motor Arm, Left 0 Motor Arm, Right 1 Motor Leg, Left 0 Motor Leg, Right 1 Limb Ataxia 0 Sensory 0 Best Language 1 Dysarthria 1 Extinction and Inattention: 0 NIH Total Score 5 We have been asked to see Koko Zamora by ED ID: Koko Zamora is a 83 y.o. with PMH of permanent AFIB (on Eliquis though held after dose 11/01), TII DM, CAD s/p stenting May (on Plavix), HLD, HFrEF, MV repair for mitral valve prolapse in 2000, prior GIB on ASA (iso duodenal and colonic angiectasias), PAD (s/p LLE ACLI s/p embolectomy with 4 compartment fasciotomy), and basal cell carcinoma who presented to the ED as a stroke alert foracute onset of R sided weakness, AMS, and aphasia. Interval Hx: - intermittent slight tachycardia noted; Systolic (24hrs), Av , Min:94 , Max:157 - WBC 9.7, BMP stable, a1c 7.7, BG in the low 200's, LDL 112 - TTE showed EF 40-45%, sclerotic aortic valve with moderate stenosis/mild insufficiency, severe L and moderate R atrial enlargement, mildly dilated aortic root - MRI brain performed yesterday, showed acute infarct in the L superior frontal gyrus and additional punctate foci of diffusion restriction in the R precentral gyrus, BL lateral inferior frontal gyriand L centrum semiovale - Pt states he is feeling okay overall this AM. Endorses having mild GOODMAN, as well as R elbow and knee pain. HPI: Pt's states they were here at [facility] this AM walking up the ramp into the main entrance of the building ( states they were here for a planned Watchmen procedure with Dr. Figueroa) when the pt suddenly appeared to go weak in the R leg and then fell down. She states that when he fell he hit his knee, then shoulder, then his head during the fall. believes that he did lose consciousness following the fall (reports that his eyes opened after the fall though he did not appear to be responding to her). also reports that his pupils appeared small at that time. states he did not seem to come around for several minutes, though appeared confused even after he seemed to regain consciousness. states that there was plan for the Watchmen device placement because there is concern for blood clots in the patient in the setting of issues with GIB on ASA (see note from Dr. Figueroa 10/22/23 for further details). He has reportedly been on blood thinner since May of 2022. He stopped taking the Eliquis after his dose on Friday night (11/01). We reviewed security footage of the pt's fall. The fall occurred at approximately 0934 AM as the pt was approaching the front entrance. He did appear to have some minor R leg weakness with swinging of the leg as he was walking into the building, and then fell onto his R knee and striking his R shoulder as he fell (though did not macey rly appear to strike his head). BP 156/101, BG 121. Initial trauma scans included CT cervical spine, CT CAP wo contrast, CT lumbar and thoracic spine. Cleared for tpa from trauma perspective. WBC 9.6, Hbg 16.2, Plt 154. Coags: PT 10.9, INR 1 PTT 28 No lyte abnormalities, Cr 0.87 Past Medical History: Patient Active Problem List Diagnosis Code GIB (gastrointestinal bleeding) K92.2 MVP (mitral valve prolapse) s/p repair I34.1 Hypertriglyceridemia E78.1 Adhesive capsulitis of L shoulder M75.00 Alcohol use Z78.9 Basal cell carcinoma C44.91 Verruca vulgaris B07.9 AK (actinic keratosis) L57.0 History of basal cell carcinoma Z85.828 Limb ischemia I99.8 Coronary artery disease involving ambler coronary artery of ambler heart without angina pectoris I25.10 HFrEF (heart failure with reduced ejection fraction) I50.20 Permanent atrial fibrillation I48.21 GI bleed K92.2 Stroke I63.9 Medications: apixaban, ascorbic acid (vitamin C), calcium citrate, carboxymethylcellulose, fluorouraciL, fluticasone propionate, multivitamin, rosuvastatin, sildenafiL, tamsulosin, and tretinoin Allergies: Allergies Allergen Reactions Aspirin Other (See Comments) GI bleed Family history: No family history on file. Social history: Social History Socioeconomic History Marital status: Spouse name: Not on file Number of children: Not on file Years of education: Not on file Highest education level: Not on file Occupational History Not on file Tobacco Use Smoking status: Former Packs/day: 0.50 Years: 50.00 Additional pack years: 0.00 Total pack years: 25.00 Types: Cigarettes Quit date: 05/15/2022 Years since quittin.4 Smokeless tobacco: Never Vaping Use Vaping Use: Never used Substance and Sexual Activity Alcohol use: Not Currently Alcohol/week: 42.0 standard drinks of alcohol Types: 42 Cans of beer per week Comment: Last alcohol use in May 2022 Drug use: Not Currently Sexual activity: Not on file Other Topics Concern Not on file Social History Narrative Not on file Social Determinants of Health Financial Resource Strain: Not on file Food Insecurity: Not on file Transportation Needs: Not on file Physical Activity: Not on file Intimate Partner Violence: Not on file Housing Stability: Not on file Physical Exam: Patient Vitals for the past 8 hrs: BP Temp Temp src Pulse Resp SpO2 11/07/23 0700 135/68 -- -- (!) 105 21 96 % 11/07/23 0600 129/56 -- -- (!) 102 19 95 % 11/07/23 0500 125/59 -- -- 98 18 95 % 11/07/23 0400 128/88 36.7 ??C (98.1 ??F) Oral (!) 103 20 97 % 11/07/23 0300 133/64 -- -- 96 26 98 % 11/07/23 0200 113/70 -- -- 94 20 98 % 11/07/23 0100 127/65 -- -- (!) 103 19 97 % 11/07/23 0000 105/64 36.7 ??C (98 ??F) Oral 92 18 96 % GEN- Awake/alert, oriented to self and age, following simple commands appropriately, there is some loss of fluency of speech, mild to moderate dysarthria, naming intact today (watch, dial, thumb, fingernail, knuckles) CN- PERRL, VFFTC, EOMI, R facial droop appreciated today, tongue midline, palate rises symmetrically MOTOR- Unable to lift RUE/RLE without assistance, though after helping lift limb off the bed he is able to sustain AG for a couple of seconds before drifting back to bed, No drift in LUE/LLE SENSATION - intact and symmetric to LT in BUE/BLE without evidence of sensory extinction CEREBELLUM - FTN intact (has some difficulty performing this on the RUE though not clearly ataxic),HTS intact CV/PULM - Irregularly irregular, no murmurs; respirations appear unlabored Labs: I/O 24 Hours: 11/06 0701 - 11/07 0700 In: 250 [P.O.:250] Out: 1475 [Urine:1475] No intake/output data recorded. Recent Labs 11/07/23 0230 11/06/23 1007 WBC 9.7* 9.6* HGB 15.8 16.2 HCT 46.4 47.2 PLATELET 154 154 NEUTROABS 6.89* 6.25* Recent Labs 11/07/23 0230 11/06/23 1007 NA 138 142 K 3.9 4.7 CL 102 105 CO2 24 26 BUN 19 24* CREATININE 0.79* 0.87 GLUCOSE 164 248* Recent Labs 11/07/23 0230 11/06/23 1007 CALCIUM 9.0 9.1 MAGNESIUM 0.94 0.90 PHOS 2.9 2.7 No results for input(s): AST, ALT, ALKPHOS, BILITOT, BILIDIR, LDH in the last 168 hours. No results for input(s): TROPONINT, CK in the last 168 hours. No results for input(s): PHART, AHN4DHC, PO2ART, UJF0NJO in the last 168 hours. Recent Labs 11/06/23 1007 INR 1.0 Lipid Panel Lab Results Component Value Date CHLPL 192 11/06/2023 HDL 61 11/06/2023 CHOLHDL 3.1 11/06/2023 LDLDIRECT 112 11/06/2023 Recent Labs 11/06/23 1007 HA1C 7.7* Diagnostic Tests and Imaging: CTH / CTA 11/06/23: IMPRESSION 1. No acute intracranial hemorrhage. 2. Occlusion of the left pericallosal BRUCE. 3. 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 4. Severe stenosis of the left ICA origin. 5. Severe stenosis of the right vertebral artery origin. 6. Remote left inferior frontal infarcts. MRI brain wo contrast 11/06/23: IMPRESSION 1. Acute infarct in the left superior frontal gyrus, compatible with a left BRUCE territory infarct. No associated hemorrhage 2. Additional punctate foci of restricted diffusion, in the right precentral gyrus, bilateral lateral inferior frontal gyri and left centrum semiovale, compatible with punctate embolic infarcts. 3. No evidence of associated hemorrhagic conversion. Assessment and Plan: 83 y.o. male with PMH of permanent AFIB (on Eliquis though held since evening dose on 11/01), TII DM, CAD s/p stenting May (on Plavix), HLD, HFrEF, MV repair for mitral valve prolapse in 2000, prior GIB on ASA (iso duodenal and colonic angiectasias), PAD (s/p LLE ACLI s/p embolectomy with 4 compartment fasciotomy), and basal cell carcinoma who presented to the ED as a stroke alert for acute onset of R sided weakness, AMS, and aphasia. He was on his way into the building 11/06 for planned Watchmen procedure. NIHSS of 5 on our initial evaluation. CTH did not show evidence of acute bleed, CTA showed a distal left BRUCE (A2/3 segment) occlusion not amendable to MT. Security footage reviewed and there was no clear head strike during the fall. Initial trauma eval without contraindication forlytics. Tpa was started at 1101 on 11/06 (eligible for tPA as he has been off his home AC for several days). Etiology of stroke suspected cardioembolic in setting of holding AC. Pt was admitted to [facility] for post-tPA care and downgraded to the vascular neurology service on 11/07 after repeat CTH appeared stable without evidence of hemorrhage. 11/07/23 Pt appears slightly weaker in the RHB on evaluation today as compared to initial neurology evaluation in the ED. He also has apparent R facial droop today and continues to be dysarthric (slightly worse compared to initial evaluation). However, CTH was repeated today which appeared stable without interval development of hemorrhagic conversion. Will plan to load him with 300 mg Plavix today and continue with 75 mg daily for now as we cannot restart his Eliquis in the acute setting of his stroke (likely for 5-7 days). Discussed with GI given his history of multiple GIB. There is felt to be no utility in performing EGD prophylactically, and given his stable Hgb no objection to giving Plavix if i ndicated from stroke perspective. I will increase his PPI to BID for now for GI Ppx. Also discussedwith family today and daughter states she will attempt to confirm home meds as home med regimen is somewhat unclear (pt does not think he has been taking both Plavix and Eliquis for at least several months). He has also been slightly tachycardic and will need to consider restarting carvedilol once his dose is confirmed (also need to confirm that he was taking this rather than metoprolol). 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 Galilea Fournier MD Please page Vascular Neurology at #[phone] with any questions. Miguel Arias DO Neurology Resident, PGY-3 11/07/23 Department of Neurology [place] [id number] Associated attestation - Galilea Fournier MD - 11/07/2023 3:36 PM EST Neurology Staff Note I have reviewed the resident's history during the visit and I agree with the details as written. Myphysical examination confirms the resident's findings. The assessment and plan were formulated in discussion with me at the time of the visit and I agree with them as documented. 83 yo man with R leg weakness. On exam R facial droop, R arm barely antigravity, R leg drifts. Nonfluent aphasia but able to name and repeat. Mild dysarthria. Personally reviewed MRI images showing multifocal ischemic strokes, bilateral hemispheres. A/P: 83 yo man with multifocal strokes. Likely cardioembolic. S/p IV TPA. Plan for single antiplatelet agent, resume anticoagulation in 5-7 days. * Natalie Turner PA - 11/06/2023 10:52 AM EST Images from the original note were not included. NEUROCRITICAL CARE HISTORY & PHYSICAL Date of Admission: 11/06/2023 9:53 AM HPI: Koko Zamora is a 83 y.o. PMH of atrial fibrillation (on chronic AC), HFrEF (EF 30% 08/31), HLD, mitral valve prolapse s/p MV repair (2000), CAD s/p AMPARO to OM1 on plavix, PAD, duodenal and colonic angiectasias, BPH, and pre-diabetes who previously holding his AC since 10/03 presenting with symptoms of RIGHT sided weakness and aphasia found to have a distal L BRUCE occlusion s/p tpa at 11:01am. Per report, pt in his usual state of health until 9:34am when he was ambulating into hospital for scheduled cardiac procedure when he collapsed. reporting pt unresponsive for which a code white was called and he was taken to the ED. Due to concern for possible head injury, trauma alert called.Stroke alert also called. NIHSS 5. NCHCT negative for acute hemorrhage or other intracranial process, CTA with concern for L BRUCE occlusion not ammenable for thrombectomy. Trauma team evaluated in ED Decision to proceed with tpa at 11:01. ROS: Gen: denies fever, chills, fatigue Eyes: denies blurring, diplopia, vision loss, photophobia CV: denies chest pain, palpitations, lightheadedness Resp: denies SOB, cough GI: denies nausea, vomiting, diarrhea, constipation, abdominal pain Neuro: as per HPI; denies GOODMAN, paresthesias No past medical history on file. Past Surgical History: Procedure Laterality Date IR BIOPSY SPINE 07/20/2019 IR Biopsy Spine 07/20/2019 Bobby Marshall MD [facility] INTERVENTIONL RAD IR VERTEBROPLASTY LUMBAR MULTIPLE LEVELS 07/20/2019 IR Vertebroplasty Lumbar Multiple Levels 07/20/2019 Bobby Marshall MD [facility] INTER[facility] RAD IR VERTEBROPLASTY THORACIC SINGLE LEVEL 10/25/2020 IR Vertebroplasty Thoracic Single Level 10/25/2020 Matt Chisholm MD [facility] INTER[facility] RAD PRO COLONOSCOPY, DIAGNOSTIC N/A 12/09/2022 COLONOSCOPY, DIAGNOSTIC performed by Giovani Ponce MD at [facility] ENDOSCOPY PRO COLONOSCOPY, FLEX, W/CONTROL, BLEEDING N/A 06/25/2022 COLONOSCOPY; W CONTROL OF BLEEDING, ANY METHOD performed by Giovani Ponce MD at [facility] ENDOSCOPY PRO EMBLC/THRMBC FEMORAL POPLITEAL AORTO-ILIAC ARTERY Left 05/15/2022 EMBOLECTOMY OR THROMBECTOMY, FEMOROPOPLITEAL, AORTOILIAC ARTERY BY LEG INCISION (WRVU 19.48) performed by Fito Summers MD at [facility] MAIN OR PRO SMALL BOWEL ENDOSCOPY, PAST 2ND DUOD N/A 06/25/2022 SMALL BOWEL ENTEROSCOPY performed by Giovani Ponce MD at [facility] ENDOSCOPY PRO UPPER GI ENDOSCOPY, CTRL BLEED 05/31/2022 EGD, W CONTROL OF BLEEDING, ANY METHOD performed by Giovani Ponce MD at [facility] ENDOSCOPY PRO UPPER GI ENDOSCOPY, DIAGNOSTIC N/A 05/31/2022 EGD, UPPER GI ENDOSCOPY performed by Giovani Ponce MD at [facility] ENDOSCOPY PRO UPPER GI ENDOSCOPY, DIAGNOSTIC N/A 06/25/2022 EGD, UPPER GI ENDOSCOPY performed by Giovani Ponce MD at [facility] ENDOSCOPY Social History Tobacco Use Smoking status: Former Packs/day: 0.50 Years: 50.00 Additional pack years: 0.00 Total pack years: 25.00 Types: Cigarettes Quit date: 05/15/2022 Years since quittin.4 Smokeless tobacco: Never Substance Use Topics Alcohol use: Not Currently Alcohol/week: 42.0 standard drinks of alcohol Types: 42 Cans of beer per week Comment: Last alcohol use in May 2022 (Not in a hospital admission) Vital Sign Ranges: Last value Range last 24 hrs Temperature Temp: -- Heart Rate Heart Rate: 99 Heart Rate: [87-111] Blood Pressure BP: (!) 141/91 BP: (132-141)/(91-96) Respiratory Rate Resp: 27 Resp: [12-27] SpO2 SpO2: 94 % SpO2: [94 %-96 %] Art BP BP (Arterial Line): -- Lines/Drains/Airways: PIV 11/06/23 1030 20 gauge basilic vein (medial side of arm), left (Active) PIV 11/06/23 0954 cephalic vein (lateral side of arm), right (Active) Labs: Recent Results (from the past 24 hour(s)) POCT Glucose Result Value Ref Range POC Glucose 221 (H) 65 - 199 mg/dL Basic Metabolic Panel (non-fasting) Result Value Ref Range Glucose Lvl 248 (H) 65 - 199 mg/dL BUN 24 (H) 10 - 20 mg/dL Creatinine 0.87 0.80 - 1.50 mg/dL Sodium 142 135 - 145 mmol/L Potassium 4.7 3.5 - 5.0 mmol/L Chloride 105 98 - 107 mmol/L CO2 26 22 - 31 mmol/L Anion Gap 11 5 - 15 mmol/L Calcium 9.1 8.5 - 10.5 mg/dL Estimated GFR 87 >=60 mL/min/1.73 m?? Prothrombin Time Result Value Ref Range PT 10.9 9.4 - 12.5 sec INR 1.0 APTT Result Value Ref Range PTT 28 25 - 37 sec Ethanol Level Result Value Ref Range Ethanol Lvl <100 <=99 mg/L Type and screen ([facility]/P/MYLES) Result Value Ref Range Patient BB History Found Expires at [id number] on: 11-09-2023 Hemogram Result Value Ref Range WBC 9.6 (H) 4.0 - 9.5 x10(3)/mcL RBC 5.15 4.58 - 5.54 x10(6)/mcL Hemoglobin 16.2 13.7 - 16.5 g/dL Hematocrit 47.2 40.5 - 48.5 % MCV 91.7 82.9 - 93.1 fL MCH 31.5 27.5 - 32.1 pg MCHC 34.3 32.0 - 35.7 g/dL Platelets 154 145 - 357 x10(3)/mcL RDWSD 43.3 36.0 - 45.0 fL RDWCV 12.9 11.4 - 13.8 % MPV 10.6 7.6 - 12.9 fL nRBC % Auto 0.0 % nRBC Abs Auto 0.000 0.000 - 0.000 x10(3)/mcL Differential, Automated Result Value Ref Range Neutrophils % 64.9 % Neutr Abs (ANC) 6.25 (H) 1.70 - 6.10 x10(3)/mcL Lymphocytes % 24.2 % Lymphocytes Abs 2.3 0.9 - 3.2 x10(3)/mcL Monocytes % 9.2 % Monocyte Abs 0.9 0.3 - 0.9 x10(3)/mcL Eosinophils % 0.6 % Eosinophils Abs 0.1 0.0 - 0.4 x10(3)/mcL Basophils % 0.6 % Basophils Abs 0.1 0.0 - 0.1 x10(3)/mcL Immature Gran % 0.50 % Rain Gran Abs 0.05 (H) 0.00 - 0.04 x10(3)/mcL Gold Tube HOLD Result Value Ref Range Gold Hold Sample in lab. ABORH Recheck Status Result Value Ref Range ABORH Type Recheck Completed Imaging: CTH/CTA h&N (11/06/23) IMPRESSION 1. No acute intracranial hemorrhage 2. Occlusion of the left pericallosal BRUCE. 3. 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 4. Severe stenosis of the left ICA origin. 5. Severe stenosis of the right vertebral artery origin. 6. Remote left inferior frontal infarcts. CT CAP w Contrast (11/06/23) EKG: Physical Exam: General: INAD. HEENT: Head is NC/AT. Nares patent. Neck: in cervical collar CV: Irregular rate, regular rhythm Lungs: CTA bilaterally, no rales, no wheezing. Abd: Soft, NT, ND. NABS throughout. Ext: No gross deformities noted. No clubbing, cyanosis, or edema. Skin: Warm and dry. No visible rashes. R shoulder and R elbow without obvious deformity, R elbow abrasion, R knee abrasion Neuro: Mental status: GCS15 AOx4. Speech is clear. Mild expressive aphasia. Follows simple and complex commands. Patient is able to repeat the phrase 'no ifs, ands, or buts' without difficulty. Names objects such as a pen. CN: EOMI, PERRL, VFF, no nystagmus. Smile is symmetric. Sensation to light touch is intact on the face. Hearing intact to voice. Tongue midline. Palate rises symmetric. Shoulder shrug intact bilaterally. Motor: Normal bulk and tone, no rigidity noted. No tremors noted. Strength is 5/5 LEFT UE & LE,3/5 RUE, 4/5 R LE; R UE drift Sensory: Intact to light touch throughout. No extinction on DSS testing. Coordination: Intact FNF and H-S difficulty with RUE due to weakness, no ataxia or dysmetria noted.Mikey intact. Psych: affect is appropriate. NIH Stroke Scale: 1a. Level of consciousness:: 0 - alert 1b. LOC Questions: Ask patient the month and their age:: 1 - answers one correctly 1c. LOC Commands: Ask patient to open and close eyes:: 0 - performs both correctly 2. Best gaze (horizontal eye movement):: 0 - normal 3. Visual field testing:: 0 - no visual loss 4. Facial paresis*: Normal symmetry (0) 5a. Motor function left arm:: 0 - no drift 5b. Motor function right arm:: 1 - drift 6a. Motor function left leg:: 0 - no drift 6b. Motor function right leg:: 0 - no drift 7. Limb ataxia:: 0 - absent 8. Sensory (Use pinprick to test arms, legs, trunk, and face compare side to side):: 0 - normal 9. Best language (describe picture, name items, read sentences):: 1 - mild to moderate aphasia 10. Dysarthria (read several words):: 0 - normal articulation 11. Extinction and inattention:: 0 - no neglect NIH Stroke Scale Total: 3 ASSESSMENT & PLAN: Koko Zamora is a 83 y.o. PMH of atrial fibrillation (on chronic AC), HFrEF (EF 30% 08/31), HLD, mitral valve prolapse s/p MV repair (2000), CAD s/p AMPARO to OM1 on plavix, PAD, duodenal and colonic angiectasias, BPH, and pre-diabetes who previously holding his AC since 10/03 presenting with symptoms of RIGHT sided weakness and aphasia found to have a distal L BRUCE occlusion s/p tpa at 11:01am. Etiology like cardioembolic (off AC for procedure) vs atherosclerotic given stenosis on CTA. # Neuro- > Left hemispheric stroke s/p tpa 11/06@ 11:01 > fall - neuro checks, VS as per tPA/thrombectomy protocol x 24h - HOB > 30 deg - obtain MRI brain wo to eval stroke burden - NCHCT 24h post-tPAto evaluate for any hemorrhage - PT/OT eval and treat - appreciate trauma recommendations - f/u spinal precautions # CV - > hx afib > hx HFrEF > hx HLD > hx MVP s/p MV repair (2000) > hx CAD - goal SBP <180 - TTE wo bubble - monitor on telemetry for dysrhythmias - check LDL - hold antithrombotics until 24h post-alteplase NCHCT stable - hold AC pending stroke size - hold home carvedilol 3.125 mg tablet, - resume home rosuvastatin 40mg daily when able # Pulm - - goal O2 sats > 92% - continue chest PT/pulm toileting # GI - > hx GERD - obtain bedside swallow screen - maintain bowel reg - GI ppx with home protonix # FEN/ - > hx BPH - NS while NPO - daily BMP, Mg, PO4 - resume home tamsulosin when able # Heme - - daily CBC - hold SQH until 24h post-alteplase NCHCT stable # Endo - > hx prediabetes - send HgbA1c, TSH on admission - goal glucose 120-180 --> ISS - hold home metformin # ID - - for temp > 38.4C --> UA, CXR, blood cx, sputum cx - tylenol PRN Code Status - Attempt Cardiopulmonary Resuscitation - Inpatient Dispo - [facility] documented in this encounter ED Notes * Kirstin Staley RN - 11/06/2023 1:37 PM EST Family reports MD came into room and removed c-collar. * Barbie Traore MD - 11/06/2023 10:14 AM EST ED Attending Note HPI: Koko Zamora is a 83 y.o. male who presents to the Emergency Department who presents as a codewhite with his . Per the he was here for a watchman and he was walking ahead of her when she felt that his right leg went weak and he fell with possible loss of consciousness. He is alert toname and place but does not know the month and is intermittently agitated. trauma alert was activated due to altered mental status with fall possibly on anticoagulation. Patient is unable to give us any further history. ROS as per HPI Vitals: ED Triage Vitals BP: (!) 132/96 [11/06/23 1006] Heart Rate: (!) 111 [11/06/23 1005] Resp: 12 [11/06/23 1006] Temp: n/a Temp src: n/a SpO2: 94 % [11/06/23 100] O2 Device: n/a O2 Flow Rate (L/min): n/a Physical Exam Vitals and nursing note reviewed. Constitutional: Appearance: He is well-developed. HENT: Head: Normocephalic and atraumatic. Eyes: Extraocular Movements: Extraocular movements intact. Cardiovascular: Rate and Rhythm: Normal rate and regular rhythm. Pulses: Normal pulses. Heart sounds: Normal heart sounds. Pulmonary: Effort: Pulmonary effort is normal. No respiratory distress. Breath sounds: Normal breath sounds. Abdominal: General: There is no distension. Palpations: Abdomen is soft. Tenderness: There is no abdominal tenderness. Musculoskeletal: General: Normal range of motion. Cervical back: Normal range of motion and neck supple. Skin: General: Skin is warm and dry. Neurological: Mental Status: He is alert. Comments: Slurred speech alert and oriented x 2 cranial nerves III through XII intact strength 3 out of 5 right upper extremity 4-5 right lower extremity 5 out of 5 left upper and left lower extremity unable to assess sensation Psychiatric: Comments: Confused ED Course: I have reviewed labs and imaging, images and available reports, and they are significant for: CT Trauma (Generic) (Results Pending) XR Chest AP and Pelvis AP Trauma (Generic) (Results Pending) CT Head wo & Multiphase CTA Head/Neck (THROMBECTOMY PROTOCOL) (Results Pending) CT Cervical Spine Reconstruction (Results Pending) ED Course as of 11/06/23 1043 Brandi Nov 06, 2023 1040 Left BRUCE occulusion, stroke team at bedside for TPA. Trauma resident in radiology for formal reads prior to TPA 1043 Rate of 99 atrial fibrillation left axis deviation with nonspecific ST-T wave changes Assessment and Plan: 83 y.o. male with witnessed fall and concern for right leg weakness he was initially a trauma alert and then on exam and found to have weakness became a stroke alert. Trauma team and stroke teamat the bedside. Patient brought to CT scanner. Per report from the trauma team and the stroke attending there are no new traumatic injuries. He will need x-rays of his right elbow and knee but that does not preclude him from getting tPA. tPA was given with the neurology attending at bedside. I have given report to the neuro ICU. Patient is is updated. He is not a candidate for clot retrieval per the neurology team. Did this case involve critical care? Yes CRITICAL CARE DOCUMENTATION: Is there a high potential of sudden, clinically significant, or life threatening deterioration? Yes Are there life and/or organ supporting interventions that require frequent personal assessment and manipulation or support to treat/prevent vital organ failure/deterioration? yes I personally performed 35 minutes of aggregate critical care time exclusive of procedures and teaching during this emergency department visit. This includes time spent during direct patient evaluation and reassessment, interpreting diagnostic tests, directing life and/or organ supporting interventions, and documentation. The visit findings, diagnosis, and care plan were discussed with the patient. Barbie Traore MD 11/06/23 1056 documented in this encounter Miscellaneous Notes * Care Management Discharge - Soila Molina RN - 11/12/2023 9:55 AM EST CARE MANAGEMENT FINAL DISCHARGE NOTE Chart reviewed, care reviewed with primary team and at interdisciplinary rounds. Patient is medically ready for discharge to [facility] acute rehab. Needs for Transition of Care: Plan for discharge is: Acute Rehab Outpatient Agency/Support Group Needs: *TBD Agency Referrals & Follow-up Care: Contact information for follow-up [address] [id number] Transportation: family or friend will provide-via private vehicle at 10:30am today. Functional status prior to admission: Independent Home Environment: Others in the home: spouse. Current Living Arrangements: home/apartment/condo. Accessibility Concerns:Pt lives in 2 story home with 5 SILVIA (handrail present but stairs are steep, family feels pt may need a ramp) can stay mainly on the first floor once in the home.. Current Functional Ability: Assistive Person and Equipment DME used at home: none DME Needed at Discharge: none Patient is insured through: Primary Insurance: MEDICARE Payor: MEDICARE / Plan: MEDICARE PART A & B / Product Type: *No Product type* / Secondary Insurance: [place] [employer] Prescription Coverage: Yes This plan was formulated with input from patient, dtr and (please identify family/friend involved if applicable) and team. All are in agreement with plan. Soila Molina MSN-Ed, RN ACM management trainee marketing Office of Care Management Pager #[phone] * Plan of Care - Armando Pelayo RN - 11/12/2023 5:02 AM EST Pt w/ Hx A-Fib, Tele Showing A-fib averaging 90's w/ episodes of 110's-130's mostly unsustained, had an episode of ventricular bigeminy early on in shift. Pt VS grossly stable W/ soft pressures most recent 94/60, pt asymptomatic over all sleeping through episodes. Provider notified. * Plan of Care - Armando Pelayo RN - 11/12/2023 1:49 AM EST OUTCOME EVALUATION NOTE: OUTCOME SUMMARY: Pt VSS overnight (BP on the soft side), Good Urine O/p, Neuro's as charted, BG stable. Remote tele in place running A-Fib, PLAN MOVING FORWARD: Neuro Checks BG Mgmt Pt Dc 11/12/23 @1000 INDIVIDUALIZED FALL PREVENTION INTERVENTIONS: Patient-specific fall risk factors per assessment: [current deficits]: PIV, Gen weakness, Residual R sided weakness Assistance [level of assistance required for transfers and ambulation]: 2A- Bed Supervision [direct monitoring required during toileting and ADLs]: Eyes on / Hands On Surveillance [continuous indirect monitoring]: Augustine Bryan Patient-specific fall prevention interventions for sensory deficits provided, if applicable: n/a CARE PLAN GOAL OUTCOME EVALUATION: Problem: Fall Injury Risk Goal: Absence of Fall and Fall-Related Injury Outcome: Ongoing (Interventions Implemented as Appropriate) Problem: Adjustment to Illness (Stroke, Ischemic/Transient Ischemic Attack) Goal: Optimal Coping Outcome: Ongoing (Interventions Implemented as Appropriate) Problem: Bowel Elimination Impaired (Stroke, Ischemic/Transient Ischemic Attack) Goal: Effective Bowel Elimination Outcome: Ongoing (Interventions Implemented as Appropriate) Problem: Cerebral Tissue Perfusion (Stroke, Ischemic/Transient Ischemic Attack) Goal: Optimal Cerebral Tissue Perfusion Outcome: Ongoing (Interventions Implemented as Appropriate) Problem: Cognitive Impairment (Stroke, Ischemic/Transient Ischemic Attack) Goal: Optimal Cognitive Function Outcome: Ongoing (Interventions Implemented as Appropriate) Problem: Communication Impairment (Stroke, Ischemic/Transient Ischemic Attack) Goal: Improved Communication Skills Outcome: Ongoing (Interventions Implemented as Appropriate) Problem: Functional Ability Impaired (Stroke, Ischemic/Transient Ischemic Attack) Goal: Optimal Functional Ability Outcome: Ongoing (Interventions Implemented as Appropriate) Problem: Respiratory Compromise (Stroke, Ischemic/Transient Ischemic Attack) Goal: Effective Oxygenation and Ventilation Outcome: Ongoing (Interventions Implemented as Appropriate) Problem: Sensorimotor Impairment (Stroke, Ischemic/Transient Ischemic Attack) Goal: Improved Sensorimotor Function Outcome: Ongoing (Interventions Implemented as Appropriate) Problem: Eating/Swallowing Impairment (Stroke, Ischemic/Transient Ischemic Attack) Goal: Oral Intake without Aspiration Outcome: Ongoing (Interventions Implemented as Appropriate) Problem: Urinary Elimination Impaired (Stroke, Ischemic/Transient Ischemic Attack) Goal: Effective Urinary Elimination Outcome: Ongoing (Interventions Implemented as Appropriate) Problem: Chest Pain Goal: Resolution of Chest Pain Symptoms Outcome: Ongoing (Interventions Implemented as Appropriate) Problem: Adult Inpatient Plan of Care Goal: Plan of Care Review Outcome: Ongoing (Interventions Implemented as Appropriate) Goal: Patient-Specific Goal (Individualized) Outcome: Ongoing (Interventions Implemented as Appropriate) Goal: Absence of Hospital-Acquired Illness or Injury Outcome: Ongoing (Interventions Implemented as Appropriate) Goal: Optimal Comfort and Wellbeing Outcome: Ongoing (Interventions Implemented as Appropriate) Goal: Readiness for Transition of Care Outcome: Ongoing (Interventions Implemented as Appropriate) * Plan of Care - Edson Carrion RN - 11/11/2023 5:50 PM EST OUTCOME EVALUATION NOTE: OUTCOME SUMMARY: Pt oriented to self, difficulty to assess rest of orientation d/t pt's significant expressive aphasia, but pt able to answer yes or no questions easily and can make needs known. R sided weakness noted in both RUE and RLE. OOB w/ 1 assist contact guard. External catheter in place. Tolerating diet, denies any n/v. Telemetry, noted to be in Afib throughout shift. VSS on RA. came to visit this afternoon, updated on care of plan. PLAN MOVING FORWARD: Anticipating d/c 11/12 @ 1030. INDIVIDUALIZED FALL PREVENTION INTERVENTIONS: Patient-specific fall risk factors per assessment: [current deficits]: R sided weakness, generalized weakness, expressive aphasia Assistance [level of assistance required for transfers and ambulation]: 1 assist contact guard Supervision [direct monitoring required during toileting and ADLs]: hands on Surveillance [continuous indirect monitoring]: masimo, telemetry, bed alarm, call boo within reach, purposeful rounding Patient-specific fall prevention interventions for sensory deficits provided, if applicable: [X] N/A CARE PLAN GOAL OUTCOME EVALUATION: Problem: Fall Injury Risk Goal: Absence of Fall and Fall-Related Injury Outcome: Ongoing (Interventions Implemented as Appropriate) Problem: Adjustment to Illness (Stroke, Ischemic/Transient Ischemic Attack) Goal: Optimal Coping Outcome: Ongoing (Interventions Implemented as Appropriate) Problem: Bowel Elimination Impaired (Stroke, Ischemic/Transient Ischemic Attack) Goal: Effective Bowel Elimination Outcome: Ongoing (Interventions Implemented as Appropriate) Problem: Cerebral Tissue Perfusion (Stroke, Ischemic/Transient Ischemic Attack) Goal: Optimal Cerebral Tissue Perfusion Outcome: Ongoing (Interventions Implemented as Appropriate) Problem: Cognitive Impairment (Stroke, Ischemic/Transient Ischemic Attack) Goal: Optimal Cognitive Function Outcome: Ongoing (Interventions Implemented as Appropriate) Problem: Communication Impairment (Stroke, Ischemic/Transient Ischemic Attack) Goal: Improved Communication Skills Outcome: Ongoing (Interventions Implemented as Appropriate) Problem: Functional Ability Impaired (Stroke, Ischemic/Transient Ischemic Attack) Goal: Optimal Functional Ability Outcome: Ongoing (Interventions Implemented as Appropriate) Problem: Respiratory Compromise (Stroke, Ischemic/Transient Ischemic Attack) Goal: Effective Oxygenation and Ventilation Outcome: Ongoing (Interventions Implemented as Appropriate) Problem: Sensorimotor Impairment (Stroke, Ischemic/Transient Ischemic Attack) Goal: Improved Sensorimotor Function Outcome: Ongoing (Interventions Implemented as Appropriate) Problem: Eating/Swallowing Impairment (Stroke, Ischemic/Transient Ischemic Attack) Goal: Oral Intake without Aspiration Outcome: Ongoing (Interventions Implemented as Appropriate) Problem: Urinary Elimination Impaired (Stroke, Ischemic/Transient Ischemic Attack) Goal: Effective Urinary Elimination Outcome: Ongoing (Interventions Implemented as Appropriate) Problem: Chest Pain Goal: Resolution of Chest Pain Symptoms Outcome: Ongoing (Interventions Implemented as Appropriate) Problem: Adult Inpatient Plan of Care Goal: Plan of Care Review Outcome: Ongoing (Interventions Implemented as Appropriate) Goal: Patient-Specific Goal (Individualized) Outcome: Ongoing (Interventions Implemented as Appropriate) Goal: Absence of Hospital-Acquired Illness or Injury Outcome: Ongoing (Interventions Implemented as Appropriate) Goal: Optimal Comfort and Wellbeing Outcome: Ongoing (Interventions Implemented as Appropriate) Goal: Readiness for Transition of Care Outcome: Ongoing (Interventions Implemented as Appropriate) * Plan of Care - Armando Pelayo RN - 11/11/2023 6:40 AM EST OUTCOME EVALUATION NOTE: OUTCOME SUMMARY: Pt VSS overnight (BP on the soft side), Good Urine O/p, Neuro's as charted, BG stable, pt seem to be finding words a little easier and right side seems a bit stronger than yesterday PLAN MOVING FORWARD: Neuro Checks BG Mgmt Pt Dc Planning INDIVIDUALIZED FALL PREVENTION INTERVENTIONS: Patient-specific fall risk factors per assessment: [current deficits]: PIV, Gen weakness, Residual R sided weakness Assistance [level of assistance required for transfers and ambulation]: 2A- Bed Supervision [direct monitoring required during toileting and ADLs]: Eyes on / Hands On Surveillance [continuous indirect monitoring]: Tele, Masimo Patient-specific fall prevention interventions for sensory deficits provided, if applicable: n/a CARE PLAN GOAL OUTCOME EVALUATION: Problem: Fall Injury Risk Goal: Absence of Fall and Fall-Related Injury Outcome: Ongoing (Interventions Implemented as Appropriate) Problem: Adjustment to Illness (Stroke, Ischemic/Transient Ischemic Attack) Goal: Optimal Coping Outcome: Ongoing (Interventions Implemented as Appropriate) Problem: Bowel Elimination Impaired (Stroke, Ischemic/Transient Ischemic Attack) Goal: Effective Bowel Elimination Outcome: Ongoing (Interventions Implemented as Appropriate) Problem: Cerebral Tissue Perfusion (Stroke, Ischemic/Transient Ischemic Attack) Goal: Optimal Cerebral Tissue Perfusion Outcome: Ongoing (Interventions Implemented as Appropriate) Problem: Cognitive Impairment (Stroke, Ischemic/Transient Ischemic Attack) Goal: Optimal Cognitive Function Outcome: Ongoing (Interventions Implemented as Appropriate) Problem: Communication Impairment (Stroke, Ischemic/Transient Ischemic Attack) Goal: Improved Communication Skills Outcome: Ongoing (Interventions Implemented as Appropriate) Problem: Functional Ability Impaired (Stroke, Ischemic/Transient Ischemic Attack) Goal: Optimal Functional Ability Outcome: Ongoing (Interventions Implemented as Appropriate) Problem: Respiratory Compromise (Stroke, Ischemic/Transient Ischemic Attack) Goal: Effective Oxygenation and Ventilation Outcome: Ongoing (Interventions Implemented as Appropriate) Problem: Sensorimotor Impairment (Stroke, Ischemic/Transient Ischemic Attack) Goal: Improved Sensorimotor Function Outcome: Ongoing (Interventions Implemented as Appropriate) Problem: Eating/Swallowing Impairment (Stroke, Ischemic/Transient Ischemic Attack) Goal: Oral Intake without Aspiration Outcome: Ongoing (Interventions Implemented as Appropriate) Problem: Urinary Elimination Impaired (Stroke, Ischemic/Transient Ischemic Attack) Goal: Effective Urinary Elimination Outcome: Ongoing (Interventions Implemented as Appropriate) Problem: Chest Pain Goal: Resolution of Chest Pain Symptoms Outcome: Ongoing (Interventions Implemented as Appropriate) Problem: Adult Inpatient Plan of Care Goal: Plan of Care Review Outcome: Ongoing (Interventions Implemented as Appropriate) Goal: Patient-Specific Goal (Individualized) Outcome: Ongoing (Interventions Implemented as Appropriate) Goal: Absence of Hospital-Acquired Illness or Injury Outcome: Ongoing (Interventions Implemented as Appropriate) Goal: Optimal Comfort and Wellbeing Outcome: Ongoing (Interventions Implemented as Appropriate) Goal: Readiness for Transition of Care Outcome: Ongoing (Interventions Implemented as Appropriate) * Plan of Care - Namita Olmedo RN - 11/10/2023 6:39 PM EST OUTCOME EVALUATION NOTE: OUTCOME SUMMARY: Pt A&Ox4. Pt hypotensive, 500mL bolus given per orders. Pt tachycardic intermittently, tele continued per orders. See doc flowsheets for tele rate/rhythm measurements. Neuro checks done per orders, see doc flowsheets. Assessment as charted. Medications administered per MAR orders. Blood sugars o btained and treated per orders. Safety maintained throughout the shift. PLAN MOVING FORWARD: Neuro checks Blood sugar management PT D/C planning INDIVIDUALIZED FALL PREVENTION INTERVENTIONS: Patient-specific fall risk factors per assessment: [current deficits]: PIV, generalized weakness, tele leads Assistance [level of assistance required for transfers and ambulation]: 2A-bed Supervision [direct monitoring required during toileting and ADLs]: Eyes on, Hands on Surveillance [continuous indirect monitoring]: Purposeful rounding, call boo within reach, room near unit station, bed alarm on, bed in lowest position, tele alarms audible. Patient-specific fall prevention interventions for sensory deficits provided, if applicable: [X] N/A CARE PLAN GOAL OUTCOME EVALUATION: Problem: Fall Injury Risk Goal: Absence of Fall and Fall-Related Injury Outcome: Ongoing (Interventions Implemented as Appropriate) Problem: Adjustment to Illness (Stroke, Ischemic/Transient Ischemic Attack) Goal: Optimal Coping Outcome: Ongoing (Interventions Implemented as Appropriate) Problem: Bowel Elimination Impaired (Stroke, Ischemic/Transient Ischemic Attack) Goal: Effective Bowel Elimination Outcome: Ongoing (Interventions Implemented as Appropriate) Problem: Cerebral Tissue Perfusion (Stroke, Ischemic/Transient Ischemic Attack) Goal: Optimal Cerebral Tissue Perfusion Outcome: Ongoing (Interventions Implemented as Appropriate) Problem: Cognitive Impairment (Stroke, Ischemic/Transient Ischemic Attack) Goal: Optimal Cognitive Function Outcome: Ongoing (Interventions Implemented as Appropriate) Problem: Communication Impairment (Stroke, Ischemic/Transient Ischemic Attack) Goal: Improved Communication Skills Outcome: Ongoing (Interventions Implemented as Appropriate) Problem: Functional Ability Impaired (Stroke, Ischemic/Transient Ischemic Attack) Goal: Optimal Functional Ability Outcome: Ongoing (Interventions Implemented as Appropriate) Problem: Respiratory Compromise (Stroke, Ischemic/Transient Ischemic Attack) Goal: Effective Oxygenation and Ventilation Outcome: Ongoing (Interventions Implemented as Appropriate) Problem: Sensorimotor Impairment (Stroke, Ischemic/Transient Ischemic Attack) Goal: Improved Sensorimotor Function Outcome: Ongoing (Interventions Implemented as Appropriate) Problem: Eating/Swallowing Impairment (Stroke, Ischemic/Transient Ischemic Attack) Goal: Oral Intake without Aspiration Outcome: Ongoing (Interventions Implemented as Appropriate) Problem: Urinary Elimination Impaired (Stroke, Ischemic/Transient Ischemic Attack) Goal: Effective Urinary Elimination Outcome: Ongoing (Interventions Implemented as Appropriate) Problem: Chest Pain Goal: Resolution of Chest Pain Symptoms Outcome: Ongoing (Interventions Implemented as Appropriate) Problem: Adult Inpatient Plan of Care Goal: Plan of Care Review Outcome: Ongoing (Interventions Implemented as Appropriate) Goal: Patient-Specific Goal (Individualized) Outcome: Ongoing (Interventions Implemented as Appropriate) Goal: Absence of Hospital-Acquired Illness or Injury Outcome: Ongoing (Interventions Implemented as Appropriate) Goal: Optimal Comfort and Wellbeing Outcome: Ongoing (Interventions Implemented as Appropriate) Goal: Readiness for Transition of Care Outcome: Ongoing (Interventions Implemented as Appropriate) * Plan of Care - Armando Pelayo RN - 11/10/2023 5:32 AM EST OUTCOME EVALUATION NOTE: OUTCOME SUMMARY: Pt VSS overnight (BP on the soft side), Good Urine O/p, Neuro's as charted, BG stable PLAN MOVING FORWARD: Neuro Checks BG Mgmt Pt Dc Planning INDIVIDUALIZED FALL PREVENTION INTERVENTIONS: Patient-specific fall risk factors per assessment: [current deficits]: PIV, Gen weakness, Residual R sided weakness Assistance [level of assistance required for transfers and ambulation]: 2A- Bed Supervision [direct monitoring required during toileting and ADLs]: Eyes on / Hands On Surveillance [continuous indirect monitoring]: Tele, Masimo Patient-specific fall prevention interventions for sensory deficits provided, if applicable: n/a CARE PLAN GOAL OUTCOME EVALUATION: Problem: Fall Injury Risk Goal: Absence of Fall and Fall-Related Injury Outcome: Ongoing (Interventions Implemented as Appropriate) Problem: Adjustment to Illness (Stroke, Ischemic/Transient Ischemic Attack) Goal: Optimal Coping Outcome: Ongoing (Interventions Implemented as Appropriate) Problem: Bowel Elimination Impaired (Stroke, Ischemic/Transient Ischemic Attack) Goal: Effective Bowel Elimination Outcome: Ongoing (Interventions Implemented as Appropriate) Problem: Cerebral Tissue Perfusion (Stroke, Ischemic/Transient Ischemic Attack) Goal: Optimal Cerebral Tissue Perfusion Outcome: Ongoing (Interventions Implemented as Appropriate) Problem: Cognitive Impairment (Stroke, Ischemic/Transient Ischemic Attack) Goal: Optimal Cognitive Function Outcome: Ongoing (Interventions Implemented as Appropriate) Problem: Communication Impairment (Stroke, Ischemic/Transient Ischemic Attack) Goal: Improved Communication Skills Outcome: Ongoing (Interventions Implemented as Appropriate) Problem: Functional Ability Impaired (Stroke, Ischemic/Transient Ischemic Attack) Goal: Optimal Functional Ability Outcome: Ongoing (Interventions Implemented as Appropriate) Problem: Respiratory Compromise (Stroke, Ischemic/Transient Ischemic Attack) Goal: Effective Oxygenation and Ventilation Outcome: Ongoing (Interventions Implemented as Appropriate) Problem: Sensorimotor Impairment (Stroke, Ischemic/Transient Ischemic Attack) Goal: Improved Sensorimotor Function Outcome: Ongoing (Interventions Implemented as Appropriate) Problem: Eating/Swallowing Impairment (Stroke, Ischemic/Transient Ischemic Attack) Goal: Oral Intake without Aspiration Outcome: Ongoing (Interventions Implemented as Appropriate) Problem: Urinary Elimination Impaired (Stroke, Ischemic/Transient Ischemic Attack) Goal: Effective Urinary Elimination Outcome: Ongoing (Interventions Implemented as Appropriate) Problem: Chest Pain Goal: Resolution of Chest Pain Symptoms Outcome: Ongoing (Interventions Implemented as Appropriate) Problem: Adult Inpatient Plan of Care Goal: Plan of Care Review Outcome: Ongoing (Interventions Implemented as Appropriate) Goal: Patient-Specific Goal (Individualized) Outcome: Ongoing (Interventions Implemented as Appropriate) Goal: Absence of Hospital-Acquired Illness or Injury Outcome: Ongoing (Interventions Implemented as Appropriate) Goal: Optimal Comfort and Wellbeing Outcome: Ongoing (Interventions Implemented as Appropriate) Goal: Readiness for Transition of Care Outcome: Ongoing (Interventions Implemented as Appropriate) * Plan of Care - Namita Olmedo RN - 11/09/2023 6:41 PM EST OUTCOME EVALUATION NOTE: OUTCOME SUMMARY: Pt arrived to [facility] via bed at 1208. Vitals obtained. Pt tachycardic intermittently, tele initiatedper orders. See doc flowsheets for tele rate/rhythm measurements. Pt c/o dizziness, MD Peg Khan aware, 500mL NS bolus given per orders. Neuro check done per orders, see doc flowsheets. Assessment as charted. Medications administered per [facility] orders. Blood sugars obtained and treated per orders. Safety maintained throughout the shift. PLAN MOVING FORWARD: PVR bladder scan Neuro checks Blood sugar management PT D/C planning INDIVIDUALIZED FALL PREVENTION INTERVENTIONS: Patient-specific fall risk factors per assessment: [current deficits]: PIV, generalized weakness, tele leads Assistance [level of assistance required for transfers and ambulation]: 2A-bed Supervision [direct monitoring required during toileting and ADLs]: Eyes on, Hands on Surveillance [continuous indirect monitoring]: Purposeful rounding, call boo within reach, room near unit station, bed alarm on, bed in lowest position, tele alarms audible. Patient-specific fall prevention interventions for sensory deficits provided, if applicable: [X] N/A CARE PLAN GOAL OUTCOME EVALUATION: Problem: Fall Injury Risk Goal: Absence of Fall and Fall-Related Injury Outcome: Ongoing (Interventions Implemented as Appropriate) Problem: Adjustment to Illness (Stroke, Ischemic/Transient Ischemic Attack) Goal: Optimal Coping Outcome: Ongoing (Interventions Implemented as Appropriate) Problem: Bowel Elimination Impaired (Stroke, Ischemic/Transient Ischemic Attack) Goal: Effective Bowel Elimination Outcome: Ongoing (Interventions Implemented as Appropriate) Problem: Cerebral Tissue Perfusion (Stroke, Ischemic/Transient Ischemic Attack) Goal: Optimal Cerebral Tissue Perfusion Outcome: Ongoing (Interventions Implemented as Appropriate) Problem: Cognitive Impairment (Stroke, Ischemic/Transient Ischemic Attack) Goal: Optimal Cognitive Function Outcome: Ongoing (Interventions Implemented as Appropriate) Problem: Communication Impairment (Stroke, Ischemic/Transient Ischemic Attack) Goal: Improved Communication Skills Outcome: Ongoing (Interventions Implemented as Appropriate) Problem: Functional Ability Impaired (Stroke, Ischemic/Transient Ischemic Attack) Goal: Optimal Functional Ability Outcome: Ongoing (Interventions Implemented as Appropriate) Problem: Respiratory Compromise (Stroke, Ischemic/Transient Ischemic Attack) Goal: Effective Oxygenation and Ventilation Outcome: Ongoing (Interventions Implemented as Appropriate) Problem: Sensorimotor Impairment (Stroke, Ischemic/Transient Ischemic Attack) Goal: Improved Sensorimotor Function Outcome: Ongoing (Interventions Implemented as Appropriate) Problem: Eating/Swallowing Impairment (Stroke, Ischemic/Transient Ischemic Attack) Goal: Oral Intake without Aspiration Outcome: Ongoing (Interventions Implemented as Appropriate) Problem: Urinary Elimination Impaired (Stroke, Ischemic/Transient Ischemic Attack) Goal: Effective Urinary Elimination Outcome: Ongoing (Interventions Implemented as Appropriate) Problem: Chest Pain Goal: Resolution of Chest Pain Symptoms Outcome: Ongoing (Interventions Implemented as Appropriate) Problem: Adult Inpatient Plan of Care Goal: Plan of Care Review Outcome: Ongoing (Interventions Implemented as Appropriate) Goal: Patient-Specific Goal (Individualized) Outcome: Ongoing (Interventions Implemented as Appropriate) Goal: Absence of Hospital-Acquired Illness or Injury Outcome: Ongoing (Interventions Implemented as Appropriate) Goal: Optimal Comfort and Wellbeing Outcome: Ongoing (Interventions Implemented as Appropriate) Goal: Readiness for Transition of Care Outcome: Ongoing (Interventions Implemented as Appropriate) * Plan of Care - Parag Phelps RN - 11/09/2023 8:05 AM EST Safety and comfort maintained. Educated pt on utilizing his right arm and exercise to help regaining his strength. Demonstrates understanding and able to lift R arm without using L arm to lift it up. Positive reinforcement utilized. VSS. POC updated without further questions at this time. Problem: Fall Injury Risk Goal: Absence of Fall and Fall-Related Injury Outcome: Ongoing (Interventions Implemented as Appropriate) Problem: Adjustment to Illness (Stroke, Ischemic/Transient Ischemic Attack) Goal: Optimal Coping Outcome: Ongoing (Interventions Implemented as Appropriate) Problem: Bowel Elimination Impaired (Stroke, Ischemic/Transient Ischemic Attack) Goal: Effective Bowel Elimination Outcome: Ongoing (Interventions Implemented as Appropriate) Problem: Cerebral Tissue Perfusion (Stroke, Ischemic/Transient Ischemic Attack) Goal: Optimal Cerebral Tissue Perfusion Outcome: Ongoing (Interventions Implemented as Appropriate) Problem: Cognitive Impairment (Stroke, Ischemic/Transient Ischemic Attack) Goal: Optimal Cognitive Function Outcome: Ongoing (Interventions Implemented as Appropriate) Problem: Communication Impairment (Stroke, Ischemic/Transient Ischemic Attack) Goal: Improved Communication Skills Outcome: Ongoing (Interventions Implemented as Appropriate) Problem: Functional Ability Impaired (Stroke, Ischemic/Transient Ischemic Attack) Goal: Optimal Functional Ability Outcome: Ongoing (Interventions Implemented as Appropriate) Problem: Respiratory Compromise (Stroke, Ischemic/Transient Ischemic Attack) Goal: Effective Oxygenation and Ventilation Outcome: Ongoing (Interventions Implemented as Appropriate) Problem: Sensorimotor Impairment (Stroke, Ischemic/Transient Ischemic Attack) Goal: Improved Sensorimotor Function Outcome: Ongoing (Interventions Implemented as Appropriate) Problem: Eating/Swallowing Impairment (Stroke, Ischemic/Transient Ischemic Attack) Goal: Oral Intake without Aspiration Outcome: Ongoing (Interventions Implemented as Appropriate) Problem: Urinary Elimination Impaired (Stroke, Ischemic/Transient Ischemic Attack) Goal: Effective Urinary Elimination Outcome: Ongoing (Interventions Implemented as Appropriate) * Plan of Care - Nelson Thomas RN - 11/08/2023 4:03 PM EST Neuro. The patient A&Ox4. He does have expressive aphasia but it is improving with his constanttrying to speak and articulate. Orientation questions are answered correctly. R arm has activation at bicep, but weak to lame. Some improvement noted since yesterday. Left arm fully functional. Left leg is weak function 3/5. Right leg fully functional. Eyes PERRLA. 5/5 LUE/LLE. Denies pain Pulmonary:, Pt is on room air. Cardiac: Patient goodman a baseline A.Fib, a extensive cardiac history frequent multifocal PVCs noted. Pt was scheduled for a Watchman GI: Consistent carb diet, after set up, eating all himself. Normo-active bowel sounds. Bowel movement 11/07/23 : Voiding small amounts into nearby urinal, receiving flomax, H: daily labs, stable. Skin/PV: R knee abrasion. No edema. Vital signs WNL Act: Patient stood up OOB and went into chair. This was done with 2 assist Problem: Fall Injury Risk Goal: Absence of Fall and Fall-Related Injury Outcome: Ongoing (Interventions Implemented as Appropriate) Problem: Adjustment to Illness (Stroke, Ischemic/Transient Ischemic Attack) Goal: Optimal Coping Outcome: Ongoing (Interventions Implemented as Appropriate) Problem: Bowel Elimination Impaired (Stroke, Ischemic/Transient Ischemic Attack) Goal: Effective Bowel Elimination Outcome: Ongoing (Interventions Implemented as Appropriate) Problem: Cerebral Tissue Perfusion (Stroke, Ischemic/Transient Ischemic Attack) Goal: Optimal Cerebral Tissue Perfusion Outcome: Ongoing (Interventions Implemented as Appropriate) Problem: Cognitive Impairment (Stroke, Ischemic/Transient Ischemic Attack) Goal: Optimal Cognitive Function Outcome: Ongoing (Interventions Implemented as Appropriate) Problem: Communication Impairment (Stroke, Ischemic/Transient Ischemic Attack) Goal: Improved Communication Skills Outcome: Ongoing (Interventions Implemented as Appropriate) Problem: Respiratory Compromise (Stroke, Ischemic/Transient Ischemic Attack) Goal: Effective Oxygenation and Ventilation Outcome: Ongoing (Interventions Implemented as Appropriate) Problem: Sensorimotor Impairment (Stroke, Ischemic/Transient Ischemic Attack) Goal: Improved Sensorimotor Function Outcome: Ongoing (Interventions Implemented as Appropriate) Problem: Urinary Elimination Impaired (Stroke, Ischemic/Transient Ischemic Attack) Goal: Effective Urinary Elimination Outcome: Ongoing (Interventions Implemented as Appropriate) Problem: Chest Pain Goal: Resolution of Chest Pain Symptoms Outcome: Ongoing (Interventions Implemented as Appropriate) * Initial Assessments - Soila Molina RN - 11/08/2023 3:23 PM EST Office of Care Management Initial Assessment Soila Molina RN reviewed record and discussed patient with Care Team. Source of Information: Team, bedside nurse, medical record, and Patient, Child Introduced self/reviewed role; services accepted. Admitted From: Other Location: Direct admit ED Reason for Hospitalization: CVA Covid Vaccination Status: 1st, 2nd & booster Last COVID test: Lab Results Component Value Date [id number] Not Detected 12/12/2022 Past medical History: No past medical history on file. Hospitalizations Within the Past 30 Days: no previous admission in last 30 days Current Decision-Making Capacity: Self If AD's have not been completed the following surrogate would be surrogate decision maker [place] decision [place] law. (Only good for 180 days)- LESLY Any patient receiving care in [place] must abide by [place] law. The hierarchy for surrogate decision making is: (a) Patient???s spouse or civil union partner unless there is a divorce proceeding, separation [...] information> -Advanced Directive: No, need to discuss Current Coping/Education/Information Needs: pt and family appear to be coping well, understand hospital course and recovery process. Current Functional Ability: Independent, Assistive Equipment, Assistive Person Functional Status Prior to Admission: Independent Prior ADLs & IADLs: Independent with all ADLs & IADLs Bathing: Independent with Bathing Dressing: Independent with Dressing Home Environment: Others in the home: spouse. Current Living Arrangements: home/apartment/condo. Accessibility Concerns:Pt lives in 2 story home with 5 SILVIA (handrail present but stairs are steep, family feels pt may need a ramp) can stay mainly on the first floor once in the home.. In the last 12 months, was there a time when you were not able to pay the mortgage or rent on time?: No In the last 12 months, was there a time when you did not have a steady place to sleep or slept in ashelter (including now)?: No In the past 12 months has the [employer] gas, oil, or water company threatened to shut off services in your home?: No Within the past 12 months, you worried that your food would run out before you got the money to buymore.: Never true Within the past 12 months, the food you bought just didn't last and you didn't have money to get more.: Never true Resource / Environmental Concerns: Resource/Environmental Concerns: home accessibility Home Accessibility Concerns: stairs to enter home In the past 12 months, has lack of transportation kept you from medical appointments or from getting medications?: No In the past 12 months, has lack of transportation kept you from meetings, work, or from getting things needed for daily living?: No Current DME: none Home Address confirmed as: [address] [place] [id number] Social & Family Supports: All names listed below confirmed with patient as current and correct Extended Emergency Contact Information Primary Emergency Contact: Lesly Zamora [address]: [address] [place] [phone] [facility] Relation: Spouse Current Care Provided by: self, spouse/significant other Provides Primary Care For: no one Caregiver if needed: spouse, child(junaid), adult Quality of Family relationships: helpful, involved, supportive Community Resources being provided currently: clinic(s), homecare agency Behavioral Health History: none noted Substance Use/Abuse listed: Social History Tobacco Use Smoking Status Former Packs/day: 0.50 Years: 50.00 Additional pack years: 0.00 Total pack years: 25.00 Types: Cigarettes Quit date: 05/15/2022 Years since quittin.4 Smokeless Tobacco Never 0 No problems reported 1-2 Low level 3-5 Moderate level 6-8 Substantial level 9- 10 Severe level 0 to 7 points: Low risk 8 to 15 points: Medium risk 16 to 19 points: High risk 20 to 40 points: Addiction likely Other Pertinent/Service Specific Information: Pt has supportive family, was fully ind at baseline prior. Health/Prescription Coverage: Primary Insurance: MEDICARE Payor: MEDICARE / Plan: MEDICARE PART A & B / Product Type: *No Product type* / Secondary Insurance: [facility] ONLY if patient has Medicare A&B - Does this patient have secondary insurance?: Yes ; Prescription Coverage: Yes Preferred Pharmacy: [id number] [place], [place] - [address] [facility] [address] [facility] [address] Status: Patient is a : Yes Are you enrolled in the VA for your healthcare?: Yes Are you here under your VA benefit?: No Primary Care Provider confirmed: Bobby Das MD [phone] Patient/Caregiver Goals of Treatment: Pt was fully ind at baseline prior to CVA, was working out, fully mobile, and driving prior. Acute rehab choices given to family for referrals, awaiting choices. 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 A member of the Care Management team will continue to monitor progress, follow for continuity of care and assist with transition of care planning. Soila Molina MSN-Ed, RN ACM management trainee marketing Office of Care Management Pager #[phone] * Consult Note - Trenton Johnson MD - 11/08/2023 8:36 AM EST Diabetes Management Team Inpatient Consult Date of Consultation: 11/08/2023 Consult Requested by: Primary team Reason for Consultation: Koko Zamora is a 83 y.o. male with PMH significant for atrial fibrillation, type 2 DM, CAD, HLD, heart failure who was admitted on 11/06/2023 currently being treated for acute stroke. We are being consulted to assist with diabetes management and to provide a review oflong term diabetes care. Diabetes History: Koko Zamora has had diabetes for 3 years. He is currently only on metformin, he was never on insulin. He reports his last hemoglobin A1c is 7.7. He checks his blood sugar every day 2 times daily, and his numbers are typically in the 140s, however he tells us that recently his sugar was running in 300s. Current outpatient diabetes regimen: Diabetes Provider: PCP Medications: Metformin Monitoring is done twice a day Most recent HA1c was done on November 06 and was 7.7% Diabetes Complications Status: Eyes: None Kidneys: None Feet: None Sensory: None Autonomic: None Cardiovascular : None ROS: Negative except as above PMH No past medical history on file. Current Hospital Medications: insulin lispro 1-4 Units Subcutaneous 4 Times Daily AC & HS pantoprazole EC 40 mg Oral BID clopidogreL 75 mg Oral Daily enoxaparin 40 mg Subcutaneous Nightly carvediloL 3.125 mg Oral BID sodium chloride 0.9 % (flush) 5 mL Intravenous BID rosuvastatin 40 mg Oral QPM tamsulosin 0.4 mg Oral Daily senna-docusate 1 tablet Oral BID PRN: sodium chloride 0.9 % (flush), lidocaine, labetaloL, enalaprilat, acetaminophen, glucose 40% oral geL OR dextrose OR glucagon Allergy: Allergies Allergen Reactions Aspirin Other (See Comments) GI bleed Social history: Social History Tobacco Use Smoking status: Former Packs/day: 0.50 Years: 50.00 Additional pack years: 0.00 Total pack years: 25.00 Types: Cigarettes Quit date: 05/15/2022 Years since quittin.4 Smokeless tobacco: Never Vaping Use Vaping Use: Never used Substance Use Topics Alcohol use: Not Currently Alcohol/week: 42.0 standard drinks of alcohol Types: 42 Cans of beer per week Comment: Last alcohol use in May 2022 Drug use: Not Currently Family history: No family history on file. Vitals Last value Range last 24 hrs Temperature Temp: 36.9 ??C (98.5 ??F) Temp: [36.8 ??C (98.2 ??F)-37.1 ??C (98.8 ??F)] Heart Rate Heart Rate: (!) 105 Heart Rate: [93-127] Blood Pressure BP: 130/81 BP: (103-132)/(54-89) Respiratory Rate Resp: 21 Resp: [15-28] SpO2 SpO2: 97 % SpO2: [95 %-98 %] Physical Exam: Gen: NAD, talking slowly and with interruptions HEENT: no LAD, oral mucus membranes moist no obvious inflammation Heart: Lungs:breathing non-labored. Neuro: Not moving right lower upper extremity, problem finding words Labs: Lab Results Component Value Date BUN 26 (H) 11/08/2023 CREATININE 0.88 11/08/2023 GLUCOSE 229 (H) 11/08/2023 GLUCFASTING 152 (H) 05/20/2022 ESTGFR 86 11/08/2023 Lab Results Component Value Date HA1C 7.7 (H) 11/06/2023 No results found for: MICROALBUR Lab Results Component Value Date CHLPL 192 11/06/2023 Lab Results Component Value Date HDL 61 11/06/2023 No results found for: LDLCHOL No results found for: TRIG Lab Results Component Value Date CHOLHDL 3.1 11/06/2023 Assessment: Patient is a 83 y.o. years old male with PMH significant for DM (Last A1C of 7.7) who was admitted on 11/06/2023 for acute stroke. Diabetes adequately controlled and currently complicated by acute stroke. Currently with variability of blood glucose levels while hospitalized requiring adjustment of insulin regimen and DM medications. Plan: 1. Lantus 10 units twice daily (give 10 units now and proceed with 10 units twice daily if BG [id number]) 2. Lispro sensitive correction scale for BG>140 q 4 hrs 3. Meal-associated Lispro 1unit: 10 gm carb ratio for each meal) Diabetes Discharge Planning Medications - Outpatient treatment regimen recommendations pending based on the hospital course, intermediate frame tender diabetes care: Medications - Outpatient treatment regimen recommendations pending based on the hospital course. Monitoring - continue BG tid ac & hs Diet - low fat/low carb diet Exercise - weight-bearing exercise 30 min/day, as tolerated Thank you for allowing us to provide care for your patient Case discussed with Dr. Johnson and communicated with the team. Stacie Ortiz MD, PhD PGY-4 Endocrinology Fellow I saw this patient with Dr Ortiz . I reviewed the diaz portions of the history and physical exam, and reviewed pertinent lab data. I answered all patient questions. I was involved in all medical decision making and agree with this plan. * Plan of Care - Mika Nova RN - 11/08/2023 6:24 AM EST Nursing Progress Note: Neuro: - Patient follows commands and he is alert x4. - Eyes track appropriately. - Pupils are equal (2 mm), both reactive to light. - Patient is on bedrest. - LUE: 1, LLE:1, RUE:5, RLE:5 Integumentary: - Right knee abrasion present. Respiratory: - Patient is on RA. - Lungs are clear throughout. - No secretions present. Cardiac: - NSR - Pulses palpable on all extremities. - No edema noted. GI: - Patient is on a regular diet. - Formed BM tonight. : - Urinal at bedside. Urine is yellow. - Adequate urine output noted throughout shift. Social: - No new updates. Drips: - saline lock Lines: - PIV Important events overnight: - Uneventful night. Recommendations: - Please monitor patient's cardiac rhythm (currently on a-fib), when turning his HR increases to 130's. Problem: Fall Injury Risk Goal: Absence of Fall and Fall-Related Injury Outcome: Ongoing (Interventions Implemented as Appropriate) Problem: Respiratory Compromise (Stroke, Ischemic/Transient Ischemic Attack) Goal: Effective Oxygenation and Ventilation Outcome: Ongoing (Interventions Implemented as Appropriate) Problem: Eating/Swallowing Impairment (Stroke, Ischemic/Transient Ischemic Attack) Goal: Oral Intake without Aspiration Outcome: Ongoing (Interventions Implemented as Appropriate) Problem: Urinary Elimination Impaired (Stroke, Ischemic/Transient Ischemic Attack) Goal: Effective Urinary Elimination Outcome: Ongoing (Interventions Implemented as Appropriate) * Care Management - Satish López RN - 11/07/2023 3:35 PM EST RN/CM attempted to discuss with spouse and patient is unable to discuss at this time. PT recommending Acute Rehab. Will ask weekend RN/CM to follow up with [facility] and assist with Acute rehab referrals. Satish López RN RN/CM - Cellphone: [phone] Pager: [phone] Covering Service RN/CM * Consult Note - Isi Celaya MD - 11/07/2023 12:49 PM EST Images from the original note were not included. DIVISION OF GASTROENTEROLOGY & HEPATOLOGY INITIAL CONSULT REQUESTING PROVIDER: Galilea Fournier MD NAME: Koko Zamora : 1940 Reason for consult: restarting anticoagulation for stroke HPI: 83 y.o.M w/PMH of remote mitral valve repair (2000), prediabetes, HLD, ETOH use, tobacco use, admitted in summer 2021 for LLE acute limb ischemia (s/p L femoral cutdown w/thromboembolectomy), , HFrEF, who was previously on plavix (AMPARO) and rivaroxaban (for Afib, leg thrombosis) who presented for admission d/t R leg weakness, AMS and aphasia c/f stroke. As for addn history, pt most recently stopped AC after LASHAY occlusion device (last dose 11/01). Yesterday, he developed new onset R sided weakness, aphasia and altered mental status, resulting in fall. His thinks that he lost consciousness during this. Reason for Watchman was d/t history of GI bleeding iso being on AC. He was previously seen by us in the hospital in June 2022 and November 2022. In May 2022, he had EGD with angioectasia (APC). Repeat scopes given recurrent sx in June 2022 w/EGD w/angioectasias s/p APC and colonoscopy w/angioectasia s/p APC. He was then admitted in November of this year for BRBPR - as such, we performed colonoscopy which was notable for polyps, and hemorrhoids. He was supposed to see us in clinic to f/u prior GI bleeding and polyps but did not show. Has not had episodes of GI bleeding since Nov 2022. We are consulted to consider endoscopy prior tostarting plavix for stroke, given his history of GI bleed 1 yr ago. On meeting him today, he is notably aphasic but denies any pain. Has not had any bleeding. ROS: 10-system ROS negative other than that noted above PAST MEDICAL & SURGICAL HX: No past medical history on file. Past Surgical History: Procedure Laterality Date IR BIOPSY SPINE 07/20/2019 IR Biopsy Spine 07/20/2019 Bobby Marshall MD [facility] INTERVENTIONL RAD IR VERTEBROPLASTY LUMBAR MULTIPLE LEVELS 07/20/2019 IR Vertebroplasty Lumbar Multiple Levels 07/20/2019 Bobby Marshall MD [facility] INTERVENTIONL RAD IR VERTEBROPLASTY THORACIC SINGLE LEVEL 10/25/2020 IR Vertebroplasty Thoracic Single Level 10/25/2020 Matt Chisholm MD [facility] INTERVENTIONL RAD PRO COLONOSCOPY, DIAGNOSTIC N/A 12/09/2022 COLONOSCOPY, DIAGNOSTIC performed by Giovani Ponce MD at [facility] ENDOSCOPY PRO COLONOSCOPY, FLEX, W/CONTROL, BLEEDING N/A 06/25/2022 COLONOSCOPY; W CONTROL OF BLEEDING, ANY METHOD performed by Giovani Ponce MD at [facility] ENDOSCOPY PRO EMBLC/THRMBC FEMORAL POPLITEAL AORTO-ILIAC ARTERY Left 05/15/2022 EMBOLECTOMY OR THROMBECTOMY, FEMOROPOPLITEAL, AORTOILIAC ARTERY BY LEG INCISION (WRVU 19.48) performed by Fito Summers MD at [facility] MAIN OR PRO SMALL BOWEL ENDOSCOPY, PAST 2ND DUOD N/A 06/25/2022 SMALL BOWEL ENTEROSCOPY performed by Giovani Ponce MD at [facility] ENDOSCOPY PRO UPPER GI ENDOSCOPY, CTRL BLEED 05/31/2022 EGD, W CONTROL OF BLEEDING, ANY METHOD performed by Giovani Ponce MD at [facility] ENDOSCOPY PRO UPPER GI ENDOSCOPY, DIAGNOSTIC N/A 05/31/2022 EGD, UPPER GI ENDOSCOPY performed by Giovani Ponce MD at [facility] ENDOSCOPY PRO UPPER GI ENDOSCOPY, DIAGNOSTIC N/A 06/25/2022 EGD, UPPER GI ENDOSCOPY performed by Giovani Ponce MD at [facility] ENDOSCOPY SOCIAL HX: Social History Socioeconomic History Marital status: Spouse name: Not on file Number of children: Not on file Years of education: Not on file Highest education level: Not on file Occupational History Not on file Tobacco Use Smoking status: Former Packs/day: 0.50 Years: 50.00 Additional pack years: 0.00 Total pack years: 25.00 Types: Cigarettes Quit date: 05/15/2022 Years since quittin.4 Smokeless tobacco: Never Vaping Use Vaping Use: Never used Substance and Sexual Activity Alcohol use: Not Currently Alcohol/week: 42.0 standard drinks of alcohol Types: 42 Cans of beer per week Comment: Last alcohol use in May 2022 Drug use: Not Currently Sexual activity: Not on file Other Topics Concern Not on file Social History Narrative Not on file Social Determinants of Health Financial Resource Strain: Not on file Food Insecurity: Not on file Transportation Needs: Not on file Physical Activity: Not on file Intimate Partner Violence: Not on file Housing Stability: Not on file FAMILY HX: No family history on file. MEDICATIONS Medication list personally reviewed Home Meds: Medications Prior to Admission Medication Sig Dispense Refill Last Dose tretinoin (RETIN-A) 0.025 % Cream Apply topically nightly. 45 g 0 Unknown apixaban (Eliquis) 2.5 mg Tablet Take 1 tablet by mouth 2 times daily. 60 tablet 3 Unknown fluticasone propionate (FLONASE) 50 mcg/actuation [place], Suspension 1 spray by Each Nare route daily as needed. Unknown fluorouraciL (EFUDEX) 5 % Cream daily. Unknown ascorbic acid, vitamin C, (VITAMIN C) 1,000 mg Tablet Take 1,000 mg by mouth daily. Unknown sildenafiL (VIAGRA) 100 mg Tablet Take 100 mg by mouth as needed for Erectile Dysfunction. Unknown carboxymethylcellulose (REFRESH PLUS) 0.5 % Dropperette Apply to eye 3 times daily as needed. Unknown calcium citrate (CALCITRATE) 200 mg (950 mg) Tablet Take 3 tablets by mouth daily. 600mg total Unknown tamsulosin (FLOMAX) 0.4 mg Capsule Take 0.4 mg by mouth daily. Unknown CRESTOR 40 mg Tablet Take 40 mg by mouth daily. Unknown MULTIVITAMIN (MULTIPLE VITAMIN ORAL) Take 1 tablet by mouth daily. Unknown Current Meds: Scheduled: insulin lispro 1-4 Units Subcutaneous 4 Times Daily AC & HS pantoprazole EC 40 mg Oral BID sodium chloride 0.9 % (flush) 5 mL Intravenous BID rosuvastatin 40 mg Oral QPM tamsulosin 0.4 mg Oral Daily senna-docusate 1 tablet Oral BID Drips: PRN: sodium chloride 0.9 % (flush), lidocaine, labetaloL, enalaprilat, acetaminophen, glucose 40% oral geL OR dextrose OR glucagon Allergies: Allergies Allergen Reactions Aspirin Other (See Comments) GI bleed OBJECTIVE Vitals: T Temp: [36.4 ??C (97.5 ??F)-36.9 ??C (98.4 ??F)] HR Heart Rate: [82-127] BP BP: (94-144)/(54-103) RR Resp: [14-26] SpO2 SpO2: [92 %-98 %] 11/06 0701 - 11/07 0700 In: 250 [P.O.:250] Out: 1475 [Urine:1475] Wt Last Admit Physical Exam: CONST: Awake, alert, no acute distress HEENT: sclerae anicteric, moist mucous membranes GI: abdomen soft, non-tender, non-distended, tympanic to percussion MSK: legs warm, palpable pulses b/l, no significant edema SKIN: No jaundice, rash, or bruising NEURO: Grossly intact, moves all extremities, no asterixis PSYCH: Pleasant, appropriate affect Labs: Labs personally reviewed in eDH CBC: Recent Labs 11/07/23 0230 11/06/23 1007 WBC 9.7* 9.6* HGB 15.8 16.2 PLATELET 154 154 MCV 90.6 91.7 RDWCV 12.8 12.9 COAG: Recent Labs 11/06/23 1007 PTT 28 INR 1.0 PT 10.9 CHEM: Recent Labs 11/07/23 0230 11/06/23 1007 CREATININE 0.79* 0.87 BUN 19 24* NA 138 142 K 3.9 4.7 CL 102 105 CO2 24 26 MAGNESIUM 0.94 0.90 CALCIUM 9.0 9.1 HEPATIC: No results for input(s): BILITOT, BILIDIR, ALKPHOS, AST, ALT, ALBUMIN, LIPASE in the last 168 hours. Invalid input(s): TPROT INFLAMM: No results for input(s): CRP in the last 168 hours. IMAGING: Reports and images personally reviewed in eDH. Images independently interpreted. MRI Brain wo Contrast Final Result 1. Acute infarct in the left superior frontal gyrus, compatible with a left BRUCE territory infarct. No associated hemorrhage 2. Additional punctate foci of restricted diffusion, in the right precentral gyrus, bilateral lateral inferior frontal gyri and left centrum semiovale, compatible with punctate embolic infarcts. 3. No evidence of associated hemorrhagic conversion. Thank you for letting us participate in the care of this patient. If you are a health care provider and have any questions regarding this report, please contact the number below. For patients who have questions please contact the health health care attorney that requested your imaging first. Shoulder Right (Generic) Final Result No acute fracture or dislocation Thank you for letting us participate in the care of this patient. If you are a health care provider and have any questions regarding this report, please contact the number below. For patients who have questions please contact the health health care attorney that requested your imaging first. Electronically signed by: Shannen Sánchez MD, [facility] ([phone]), at 11/06/2023 12:02 PM XR Elbow 3 Views Right (GENERIC) Final Result 1. No acute fracture. 2. Normal osseous alignment 3. No elbow effusion. Thank you for letting us participate in the care of this patient. If you are a health care provider and have any questions regarding this report, please contact the number below. For patients who have questions please contact the health health care attorney that requested your imaging first. Electronically signed by: Shannen Sánchez MD, [facility] ([phone]), at 11/06/2023 12:00 PM XR Wrist 3 Views Right Final Result 1. No acute fracture. 2. Normal osseous alignment 3. No elbow effusion. Thank you for letting us participate in the care of this patient. If you are a health care provider and have any questions regarding this report, please contact the number below. For patients who have questions please contact the health health care attorney that requested your imaging first. Electronically signed by: Shannen Sánchez MD, [facility] ([phone]), at 11/06/2023 12:00 PM XR Knee 1-2 Views Right (Generic) Final Result 1. 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 2. Small effusion without lipohemarthrosis 3. No acute fractures seen. Thank you for letting us participate in the care of this patient. If you are a health care provider and have any questions regarding this report, please contact the number below. For patients who have questions please contact the health health care attorney that requested your imaging first. Electronically signed by: Shannen Sánchez MD, [facility] ([phone]), at 11/06/2023 11:[address] Head wo & Multiphase CTA Head/Neck (THROMBECTOMY PROTOCOL) Final Result 1. No acute intracranial hemorrhage. 2. Occlusion of the left pericallosal BRUCE. 3. 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 4. Severe stenosis of the left ICA origin. 5. Severe stenosis of the right vertebral artery origin. 6. Remote left inferior frontal infarcts. Thank you for letting us participate in the care of this patient. If you are a health care provider and have any questions regarding this report, please contact the number below. For patients who have questions please contact the health health care attorney that requested your imaging first. Cervical Spine Reconstruction Final Result 1. No acute fracture or malalignment. 2. Diffuse osseous demineralization and multilevel degenerative changes throughout the spine as described. I have personally reviewed the image(s) and the resident's interpretation and agree with the findings, Edson Danielle DO at 11/06/2023 11:29 AM Thank you for letting us participate in the care of this patient. If you are a health care provider and have any questions regarding this report, please contact the number below. For patients who have questions please contact the health health care attorney that requested your imaging first. Chest Abdomen Pelvis w Contrast (Generic) Final Result No evidence of acute thoracic or abdominal pathology. Thank you for letting us participate in the care of this patient. If you are a health care provider and have any questions regarding this report, please contact the number below. For patients who have questions please contact the health health care attorney that requested your imaging first. Thoracic Spine Reconstruction Final Result 1. No acute fracture or malalignment. 2. Diffuse osseous demineralization and multilevel degenerative changes throughout the spine as described. I have personally reviewed the image(s) and the resident's interpretation and agree with the findings, Edson Danielle DO at 11/06/2023 11:29 AM Thank you for letting us participate in the care of this patient. If you are a health care provider and have any questions regarding this report, please contact the number below. For patients who have questions please contact the health health care attorney that requested your imaging first. Lumbar Spine Reconstruction Final Result 1. No acute fracture or malalignment. 2. Diffuse osseous demineralization and multilevel degenerative changes throughout the spine as described. I have personally reviewed the image(s) and the resident's interpretation and agree with the findings, Edson Danielle DO at 11/06/2023 11:29 AM Thank you for letting us participate in the care of this patient. If you are a health care provider and have any questions regarding this report, please contact the number below. For patients who have questions please contact the health health care attorney that requested your imaging first. Electronically signed by: [facility] ([phone]), at 11/06/2023 11:29 AM XR Chest AP and Pelvis AP Trauma (Generic) Final Result No acute radiographically evident abnormality in the visualized chest or pelvis. I have personally reviewed the image(s) and the resident's interpretation and agree with the findings, Robyn Najera MD at 11/06/2023 11:47 AM Thank you for letting us participate in the care of this patient. If you are a health care provider and have any questions regarding this report, please contact the number below. For patients who have questions please contact the health health care attorney that requested your imaging first. Cardiac Catheterization (Results Pending) CT Head wo Contrast (Generic) (Results Pending) ENDOSCOPY: Reports and images personally reviewed in [facility] COLONOSCOPY 11/2022: Impression: - Multiple small polyps from rectum to sigmoid colon. - Internal hemorrhoids. - No specimens collected. Recommendation: - [facility]. - Resume previous diet. - Repeat colonoscopy electively for polypectomy when able to safely temporarily hole blood thinning agents EGD 06/2022: Impression: - Normal esophagus. - Normal stomach. - A single non-bleeding Angioectasia in the duodenum. Treated with argon beam coagulation. - Four non-bleeding angioectasias in the proximal jejunum. Treated with argon beam coagulation. - No specimens collected. Recommendation: - Perform a colonoscopy. COLONOSCOPY 06/2022: Impression: - The examined portion of the ileum was normal. - Two small polyps in the sigmoid colon and in the transverse colon. Resection not attempted in the context of recent GI bleeding and antiplatelet use. - A single bleeding colonic angioectasiae. Treated with argon beam coagulation. Clip was placed. - No specimens collected. Recommendation: - Return patient to referring hospital for ongoing care. - Resume previous diet. - Follow up outpatient GI to discuss risks/benefits of elective repeat colonoscopy for polypectomy EGD 05/2022: Impression: - Normal esophagus. - Mild erosive gastropathy with no bleeding and no stigmata of recent bleeding. - Two angioectasias in the duodenum, one with active oozing. Both were treated with argon beam coagulation. - No specimens collected. Recommendation: - [facility] care. - Clear liquid diet today. - Observe patient's clinical course. - [facility] ASSESSMENT & PLAN: 83 y.o.M w/PMH of remote mitral valve repair (2000), prediabetes, HLD, ETOH use, tobacco use, admitted in summer 2021 for LLE acute limb ischemia (s/p L femoral cutdown w/thromboembolectomy), , HFrEF, who was previously on plavix (AMPARO) and rivaroxaban (for Afib, leg thrombosis) who presented for admission d/t R leg weakness c/f stroke. We are consulted to consider endoscopy prior to starting plavix for stroke, given his history of GI bleed 1 yr ago. Overall, no role for scoping prophylactically prior to starting any anticoagulation or antiplatelettherapy without any signs or sx of GI bleeding. He is on PPI once daily, but reasonable to put on twice daily while plavix loading for stroke. If he were to develop signs or sx of GI bleeding, we would be happy to evaluate endoscopically. Certainly think stroke tx takes precedent, and are availableif GI bleeding develops. Would suspect likely AVMS if he does bleed (hx and has had on prior EGDs). We will sign off, please call or page if questions. Recommendations: - Defer endoscopic evaluation in the absence of any signs or sx of GI bleeding Patient seen with Dr. Kris Celaya MD PGY-5, Gastroenterology Associated attestation - Giovani Ponce MD - 11/11/2023 9:45 AM EST I have independently seen and examined the patient, and have reviewed the resident???s above note, and agree with the documented history, physical findings, and study results; my evaluation of the patient is below: I met with Mr Zamora, struggling with conversation due to aphasia. No overt bleeding. I agree with prioritizing the management of is neurologic event and defer endoscopic examination. Giovani Ponce MD * Consult Note - Corrie Mcdaniel MD - 11/07/2023 11:56 AM EST TRAUMA & ACUTE SURGICAL CARE SERVICE TERTIARY SURVEY ID/MECHANISM OF INJURY: Koko Zamora is a 83 y.o. Male admitted on 11/06/2023 following a stroke that led to a fall, on 11/01 for the management of Neurologic injuries (Please see below box for a complete summary of injuries) HISTORY OF PRESENT ILLNESS: Koko Zamora is a 83 y.o. male presents to [facility] s/p stroke leading to a fall. Primary survey revealed: intact airway, equal breath sounds/respirations, present 2+ peripheral pulses with stable vital signs and no signs of bleedin GCS: 14 Secondary survey revealed: GENERAL: awake and no apparent distress HEAD: Normocephalic, without obvious abnormality, atraumatic FACE: Pupils: 2 mm bilaterally, equal, round, reactive to light, no periorbital ecchymoses; Tympanic Membranes: not visualized secondary to cerumen; Midface: no tenderness, no swelling, no contusions, no lacerations, and no abrasions over entire face Oropharynx: nonbloody, moist mucous membranes, no lacerations, no malocclusion, and no chipped or missing teeth NECK: no tenderness to palpation, trachea midline, no masses, no swelling, no contusions, and no abrasions LUNG: equal, clear breath sounds bilaterally and no crepitus CARDIAC: Regular rate and rhythm or without murmur or extra heart sounds ABDOMEN/GI: soft, non-tender, non-distended, no abrasions, and no contusions PELVIS: stable to AP and/or lateral compression RECTAL: Sphincter tone exam deferred with no gross blood; Voluntary anal contraction normal EXTREMITIES: 3/5 strength in RLE, swelling over R elbow SPINE: no deformity, no stepoffs, no tenderness to palpation, and no abrasions over cervical spine,thoracic spine and/or lumbar spine SKIN: no lacerations, abrasions or contusions on complete skin exam apart from abrasion over R knee, Abrasion over R elbow NEURO: Mental Status: awake, but confused and inappropriate in responses, oriented to person, place Cranial Nerves: CN II - XII intact Motor: 3/5 motor in RLE Sensory: no sensory deficits noted PMHx: atrial fibrillation (on chronic AC), HFrEF (EF 30% 08/31), HLD, mitral valve prolapse s/p MV repair(2000), CAD s/p AMPARO to OM1 on plavix, PAD, duodenal and colonic angiectasias, BPH, and pre-diabeteswho previously holding his AC since 10/03 for his watchman placement PSHx: Past Surgical History: Procedure Laterality Date IR BIOPSY SPINE 07/20/2019 IR Biopsy Spine 07/20/2019 Bobby Marshall MD [facility] INTERVENTIONL RAD IR VERTEBROPLASTY LUMBAR MULTIPLE LEVELS 07/20/2019 IR Vertebroplasty Lumbar Multiple Levels 07/20/2019 Bobby Marshall MD [facility] INTERVENTION[facility] RAD IR VERTEBROPLASTY THORACIC SINGLE LEVEL 10/25/2020 IR Vertebroplasty Thoracic Single Level 10/25/2020 Matt Chisholm MD [facility] INTERVENTIONL RAD PRO COLONOSCOPY, DIAGNOSTIC N/A 12/09/2022 COLONOSCOPY, DIAGNOSTIC performed by Giovani Ponce MD at [facility] ENDOSCOPY PRO COLONOSCOPY, FLEX, W/CONTROL, BLEEDING N/A 06/25/2022 COLONOSCOPY; W CONTROL OF BLEEDING, ANY METHOD performed by Giovani Ponce MD at [facility] ENDOSCOPY PRO EMBLC/THRMBC FEMORAL POPLITEAL AORTO-ILIAC ARTERY Left 05/15/2022 EMBOLECTOMY OR THROMBECTOMY, FEMOROPOPLITEAL, AORTOILIAC ARTERY BY LEG INCISION (WRVU 19.48) performed by Fito Summers MD at [facility] MAIN OR PRO SMALL BOWEL ENDOSCOPY, PAST 2ND DUOD N/A 06/25/2022 SMALL BOWEL ENTEROSCOPY performed by Giovani Ponce MD at [facility] ENDOSCOPY PRO UPPER GI ENDOSCOPY, CTRL BLEED 05/31/2022 EGD, W CONTROL OF BLEEDING, ANY METHOD performed by Giovani Ponce MD at [facility] ENDOSCOPY PRO UPPER GI ENDOSCOPY, DIAGNOSTIC N/A 05/31/2022 EGD, UPPER GI ENDOSCOPY performed by Giovani Ponce MD at [facility] ENDOSCOPY PRO UPPER GI ENDOSCOPY, DIAGNOSTIC N/A 06/25/2022 EGD, UPPER GI ENDOSCOPY performed by Giovani Ponce MD at [facility] ENDOSCOPY HOME MEDICATIONS: Medications Prior to Admission Medication Sig Dispense Refill Last Dose tretinoin (RETIN-A) 0.025 % Cream Apply topically nightly. 45 g 0 Unknown apixaban (Eliquis) 2.5 mg Tablet Take 1 tablet by mouth 2 times daily. 60 tablet 3 Unknown fluticasone propionate (FLONASE) 50 mcg/actuation [place], Suspension 1 spray by Each Nare route daily as needed. Unknown fluorouraciL (EFUDEX) 5 % Cream daily. Unknown ascorbic acid, vitamin C, (VITAMIN C) 1,000 mg Tablet Take 1,000 mg by mouth daily. Unknown sildenafiL (VIAGRA) 100 mg Tablet Take 100 mg by mouth as needed for Erectile Dysfunction. Unknown carboxymethylcellulose (REFRESH PLUS) 0.5 % Dropperette Apply to eye 3 times daily as needed. Unknown calcium citrate (CALCITRATE) 200 mg (950 mg) Tablet Take 3 tablets by mouth daily. 600mg total Unknown tamsulosin (FLOMAX) 0.4 mg Capsule Take 0.4 mg by mouth daily. Unknown CRESTOR 40 mg Tablet Take 40 mg by mouth daily. Unknown MULTIVITAMIN (MULTIPLE VITAMIN ORAL) Take 1 tablet by mouth daily. Unknown CURRENT MEDICATIONS: POCT Fingerstick Glucose AND insulin lispro (HumaLOG;Admelog) (100 unit/mL) subcutaneous injection vial 1-4 Units pantoprazole EC (Protonix) tablet 40 mg sodium chloride 0.9 % (flush) (BD PosiFlush Normal Saline 0.9) flush 5 mL sodium chloride 0.9 % (flush) (BD PosiFlush Normal Saline 0.9) flush 5-20 mL lidocaine (Xylocaine) 1% (10 mg/mL) injection 3 mg labetaloL (Normodyne) (5 mg/mL) injection solution 10-20 mg enalaprilat (Vasotec) (1.25 mg/mL) injection 1.25 mg rosuvastatin (Crestor) tablet 40 mg tamsulosin (Flomax) capsule 0.4 mg senna-docusate (Pericolace) 8.6-50 mg per tablet 1 tablet acetaminophen (Tylenol) tablet 975 mg glucose (Glutose) 40% oral geL OR dextrose 10% infusion OR glucagon (Glucagen) (1 mg/mL) injection solution 1 mg sodium chloride 0.9 % (flush), lidocaine, labetaloL, enalaprilat, acetaminophen, glucose 40% oral geL OR dextrose OR glucagon ALLERGIES: Allergies Allergen Reactions Aspirin Other (See Comments) GI bleed FAMILY HISTORY: Negative for bleeding disorders or reactions to anesthesia SOCIAL HISTORY: Alcohol: None currently (last drink in May 2022) Tobacco: 1PPD smoker for 50 years quit in May 2022 Drug: None Pertinent social details: At baseline able to go to the gym multiple times REVIEW OF SYSTEMS: complete 10 system ROS performed with pertinent findings below. A comprehensive review of systems was negative. Subjective: More quickly responds to questions today PHYSICAL EXAM: VITALS: Last value Range last 24 hrs Temperature Temp: 36.9 ??C (98.4 ??F) Temp: [36.4 ??C (97.5 ??F)-36.9 ??C (98.4 ??F)] Heart Rate Heart Rate: (!) 127 Heart Rate: [82-127] Blood Pressure BP: 128/89 BP: (105-141)/(54-89) Respiratory Rate Resp: 21 Resp: [14-26] SpO2 SpO2: 97 % SpO2: [92 %-98 %] I/O last 3 completed shifts: In: 250 [P.O.:250] Out: 1475 [Urine:1475] GENERAL: awake and no apparent distress HEAD: Normocephalic, without obvious abnormality, atraumatic FACE: Pupils: 2 mm bilaterally, equal, round, reactive to light, no periorbital ecchymoses; Tympanic Membranes: not visualized secondary to cerumen; Midface: no tenderness, no swelling, no contusions, no lacerations, and no abrasions over entire face Oropharynx: nonbloody, moist mucous membranes, no lacerations, no malocclusion, and no chipped or missing teeth NECK: no tenderness to palpation, trachea midline, no masses, no swelling, no contusions, and no abrasions LUNG: equal, clear breath sounds bilaterally and no crepitus CARDIAC: Regular rate and rhythm or without murmur or extra heart sounds ABDOMEN/GI: soft, non-tender, non-distended, no abrasions, and no contusions PELVIS: stable to AP and/or lateral compression RECTAL: Sphincter tone exam deferred with no gross blood; Voluntary anal contraction normal EXTREMITIES: 0/5 strength in RLE and RUE, swelling over R elbow SPINE: no deformity, no stepoffs, no tenderness to palpation, and no abrasions over cervical spine,thoracic spine and/or lumbar spine SKIN: no lacerations, abrasions or contusions on complete skin exam apart from abrasion over R knee, Abrasion over R elbow NEURO: Mental Status: awake, but confused and inappropriate in responses, oriented to person, place Cranial Nerves: CN II - XII intact Motor: 0/5 motor in RLE and RUE Sensory: no sensory deficits noted GCS: 15 (6 - Follows simple motor commands, 5 - Alert and oriented, 4 - Opens eyes on own) LABORATORY: Recent Labs 11/07/23 0230 11/06/23 1007 WBC 9.7* 9.6* HGB 15.8 16.2 HCT 46.4 47.2 PLATELET 154 154 PT -- 10.9 INR -- 1.0 PTT -- 28 Recent Labs 11/07/23 0230 11/06/23 1007 NA 138 142 K 3.9 4.7 CL 102 105 CO2 24 26 BUN 19 24* CREATININE 0.79* 0.87 GLUCOSE 164 248* CALCIUM 9.0 9.1 MAGNESIUM 0.94 0.90 PHOS 2.9 2.7 Radiological Studies: All imaging studies reviewed for findings and incidentals, for more specifics see imaging results. Hospital Issues: Stroke - per NCCR and Neurology ASSESSMENT/SUMMARY OF INJURIES: 83 y.o. male with PMH of atrial fibrillation (on chronic AC), HFrEF (EF 30% 08/31), HLD, mitral valve prolapse s/p MV repair (2000), CAD s/p AMPARO to OM1 on plavix, PAD, duodenal and colonic angiectasias, BPH, and pre-diabetes , here s/p stroke leading to fall. Traumatic injuries included in chart below. Injuries identified on Tertiary Survey: 1. None Plan: At this time, the progression of his weakness is likely due to his stroke and not a trauma etiologygiven his imaging. Will defer further w/u to the NCCU and Neurology team. Traumatic Injuries: Injury Intervention Follow-up SKIN (lacerations, abrastions): R knee abrasion, R elbow ecchymosis TRAUMA Standard wound care TRAUMA None indicated Acute in hospital issues: Acute pain - Per NCCU Bowel Regimen - Per NCCU Tetanus status: within the last 10 years per his Admission UA: Negative Tox Screen: Negative Chronic health conditions: (List health condition and inpatient plan) PCP: Bobby Das MD Diet: Carb Control diet 60/60/75 CHO counting level 2 Activity status: - Per NCCU Spine status: Trauma - cleared w/o restrictions DVT PPX: - Per NCCU GI PPX: - Per N[facility]U Lines/Tubes/Drains: Per NCCU Dispo: TBD Status: NCCU Incidental Findings - None Corrie Mcdaniel MD 11/07/2023 Trauma pager [phone] Associated attestation - Kel Campos MD - 11/09/2023 5:40 PM EST I have seen the patient in person and reviewed the above history and I agree with the details as written. The assessment and plan were formulated in discussion with me and I agree with them as documented. Kel Campos MD * Initial Assessments - Etta Golden, [employer] - 11/07/2023 9:10 AM EST Speech Therapy Evaluation Patient Profile: Koko Zamora is a 83 y.o. male with PMHx of A-fib, DMII, CAD s/p stenting (05/2022; on Plavix), HLD, HFrEF, MV repair for mitral valve prolapse (2000), prior GIB on ASA (iso duodenal and colonic angiectasias), PAD (s/p LLE ACLI s/p embolectomy with 4 compartment fasciotomy), and basal cell carcinoma, who presented to [facility] on 11/06/2023 with acute-onset right sided weakness, AMS, and aphasia and was found to have a distal left BRUCE occlusion, now s/p tPA. [employer] consulted on 11/06 for a bedside swallow evaluation per CVA protocol. Prior Level of Function: History gathered via chart review and Y/N questions due to expressive aphasia. Patient reports chronic dysphagia symptoms following an EGD in June 2022, including feelings of stasis in his upper chest with tough, chewy solids. He denies dysphagia to liquids. Patient denies history of speech or language difficulty. Relevant Imaging: MRI Brain (11/06/2023) IMPRESSION 1. Acute infarct in the left superior frontal gyrus, compatible with a left BRUCE territory infarct. No associated hemorrhage 2. Additional punctate foci of restricted diffusion, in the right precentral gyrus, bilateral lateral inferior frontal gyri and left centrum semiovale, compatible with punctate embolic infarcts. 3. No evidence of associated hemorrhagic conversion. CT Cervical Spine (11/06/2023) IMPRESSION 1. No acute fracture or malalignment. 2. Diffuse osseous demineralization and multilevel degenerative changes throughout the spine as described. Subjective: Patient seen shortly after PT/OT evaluation. He was pleasant and cooperative with care,and presented with significant word-finding difficulty requiring either Y/N questions or response choices to communicate effectively. He reported improvements in his speech since yesterday. Objective: Patient seen for evaluation today. Pain: Denies Respiratory Status: Room air Vision: aided with glasses Hearing: WFL Current Diet: Carb Control diet 60/60/75 CHO counting level 2 Feeding Status: Patient requires cues and/or assistance due to right-sided weakness Dependent for Oral Care? Needs setup assistance due to right-sided weakness Cognitive-Linguistic Status: A&Ox4 Significant word-finding difficulty characterized by frequent pauses and paraphasias (phonemic and semantic) Visibly frustrated during moments of communication breakdown Provided low-tech communication boards to facilitate functional communication within the hospital setting. Patient pointed to targets with 100% accuracy. Language Screening Test (LAST; Winston et al., 2011) - modified The LAST is a brief language screening scale for patients with acute stroke. A score of <15 indicates a need for more comprehensive language assessment. This version of the LAST has been modified for use at [facility]. Expression Index: NAMING Correct? Comments Pen Yes: 1 Cup No: 0 Initially said water, then glass when prompted Toothbrush Yes: 1 Straw Yes: 1 Hesitation Hand No: 0 Initially said five, then hand when prompted REPETITION 4 syllable word category Yes: 1 8 word sentence w/ 11 syllables: My mother will give me a birthday present No: 0 My mother has given me a birthday present AUTOMATIC SPEECH Count from 1 to 10 Yes: 1 TOTAL (Expressive Index) 5 (Maximum score: 8 points) Receptive Index: RECOGNITION Correct? Comments Book Yes: 1 Car Yes: 1 Diaz Yes: 1 Cat Yes: 1 VERBAL INSTRUCTIONS Simple: Close your eyes Yes: 1 Semi-Complex: Point to the ceiling, then to the floor Yes: 1 Complex: Point to the floor before you close your eyes No: 0 Pointed to the floor only TOTAL (Receptive Index) 6 (Maximum score: 7 points) TOTAL Score 11 (Maximum score: 15 points; less than 15 = further language assessment is warranted) Yes / No Reliability Screen Question: Response Comments Is your name (incorrect name)? Correct Is your name (incorrect name)? Correct Is your name (Koko)? Incorrect Initially said no repeatedly, then became visibly frustrated andeventually said yes - suspect impacted by expressive language function rather than comprehension Are the lights on in this room? Correct Are you wearing red pajamas? Correct Is this a hospital? Correct Are you a doctor? Correct Do you eat lunch before dinner? Incorrect Does it snow in May? Correct Is a horse larger than a dog? Correct Total Accurate Responses (out of a possible 10) 06/19 80% accurate Follows Commands: Follows single step commands, some breakdown with multi-step commands Positioning: Pt up to chair Oral / Laryngeal Mechanism Clinical Assessment: CN V: Trigeminal Jaw Strength: WFL Sensation: Denies facial numbness CN VII: Facial Labial Retraction: Reduced on right Facial Symmetry: Slight right-sided droop CN IX Glossopharyngeal Gag: Not assessed CN X: Vagus Velopharyngeal Elevation: Present and grossly symmetrical Vocal Fold Function: WFL Secretion Management: WFL Volitional Cough: WFL CN XII Hypoglossal Lingual ROM/Speed: WFL Lingual Strength: WFL Other Oral Mucosa: [place] and moist Dentition: Present and intact; reports significant dental work in the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 include: 1. Right knee abrasion 2. Right elbow abrasion Plan: - Tert in AM - No contraindications for anticoagulation from a trauma surgery perspective -Spine status: Per trauma. C-collar in place given Corrie Mcdaniel MD [id number] 11/06/2023 12:07 PM Associated attestation - Kel Campos MD - 11/09/2023 5:40 PM EST I have seen the patient in person and reviewed the above history and I agree with the details as written. The assessment and plan were formulated in discussion with me and I agree with them as documented. Pt was ambulating in when he had a witnessed fall. Initially activated as a Trauma alert, but then started developing neuro deficits and stroke alert also activated. Ct scans revealed no traumatic injury, but positive for stroke. OK for admit to neurology, no evidence of traumatic bleeding thus no c ontraindication for tpa. Will follow for tertiary. Kel Campos MD * Consult Note - Miguel Arias, - 11/06/2023 10:28 AM EST Neurology Consult Note Patient name:Koko Zamora Date of :1940 Admit date: 11/06/2023 Attending: Shantanu CC: R sided weakness Date last well known:: 11/06/23 Time last well known:: 933 Date of discovery of symptoms:: 11/06/23 Time of discovery of symptoms:: 956 Was IV Thrombolytics given?: Yes Was dysphagia screen performed?: Yes Date of Dysphagia Screen: 11/06/23 Time of Dysphagia Screen: 1036 Did patient pass dysphagia screen?: No NIH Stroke Scale NIH Stroke Scale Date 11/06/23 NIH Stroke Scale Time 1030 Level of Consciousness 1 LOC Questions 0 LOC Commands 0 Best Gaze 0 Vision 0 Facial Palsy 0 Motor Arm, Left 0 Motor Arm, Right 1 Motor Leg, Left 0 Motor Leg, Right 1 Limb Ataxia 0 Sensory 0 Best Language 1 Dysarthria 1 Extinction and Inattention: 0 NIH Total Score 5 We have been asked to see Koko Zamora by ED ID: Koko Zamora is a 83 y.o. with PMH of permanent AFIB (on Eliquis though held after dose 11/01), TII DM, CAD s/p stenting May (on Plavix), HLD, HFrEF, MV repair for mitral valve prolapse in 2000, prior GIB on ASA (iso duodenal and colonic angiectasias), PAD (s/p LLE ACLI s/p embolectomy with 4 compartment fasciotomy), and basal cell carcinoma who presented to the ED as a stroke alert foracute onset of R sided weakness, AMS, and aphasia. Pt's states they were here at [facility] this AM walking up the ramp into the main entrance of the building ( states they were here for a planned Watchmen procedure with Dr. Figueroa) when the pt suddenly appeared to go weak in the R leg and then fell down. She states that when he fell he hit his knee, then shoulder, then his head during the fall. believes that he did lose consciousness foll owing the fall (reports that his eyes opened after the fall though he did not appear to be responding to her). also reports that his pupils appeared small at that time. states he did not seem to come around for several minutes, though appeared confused even after he seemed to regain consciousness. states that there was plan for the Watchmen device placement because there is concern for blood clots in the patient in the setting of issues with GIB on ASA (see note from Dr. Figueroa 10/22/23 for further details). He has reportedly been on blood thinner since May of 2022. He stopped taking the Eliquis after his dose on Friday night (11/01). We reviewed security footage of the pt's fall. The fall occurred at approximately 0934 AM as the pt was approaching the front entrance. He did appear to have some minor R leg weakness with swinging of the leg as he was walking into the building, and then fell onto his R knee and striking his R shoulder as he fell (though did not clearly appear to strike his head). BP 156/101, BG 121. Initial trauma scans included CT cervical spine, CT CAP wo contrast, CT lumbar and thoracic spine. Cleared for tpa from trauma perspective. WBC 9.6, Hbg 16.2, Plt 154. Coags: PT 10.9, INR 1 PTT 28 No lyte abnormalities, Cr 0.87 Past Medical History: Patient Active Problem List Diagnosis Code GIB (gastrointestinal bleeding) K92.2 MVP (mitral valve prolapse) s/p repair I34.1 Hypertriglyceridemia E78.1 Adhesive capsulitis of L shoulder M75.00 Alcohol use Z78.9 Basal cell carcinoma C44.91 Verruca vulgaris B07.9 AK (actinic keratosis) L57.0 History of basal cell carcinoma Z85.828 Limb ischemia I99.8 Coronary artery disease involving ambler coronary artery of ambler heart without angina pectoris I25.10 HFrEF (heart failure with reduced ejection fraction) I50.20 Permanent atrial fibrillation I48.21 GI bleed K92.2 Stroke I63.9 Medications: apixaban, ascorbic acid (vitamin C), calcium citrate, carboxymethylcellulose, fluorouraciL, fluticasone propionate, multivitamin, rosuvastatin, sildenafiL, tamsulosin, and tretinoin Allergies: Allergies Allergen Reactions Aspirin Other (See Comments) GI bleed Family history: No family history on file. Social history: Social History Socioeconomic History Marital status: Spouse name: Not on file Number of children: Not on file Years of education: Not on file Highest education level: Not on file Occupational History Not on file Tobacco Use Smoking status: Former Packs/day: 0.50 Years: 50.00 Additional pack years: 0.00 Total pack years: 25.00 Types: Cigarettes Quit date: 05/15/2022 Years since quittin.4 Smokeless tobacco: Never Vaping Use Vaping Use: Never used Substance and Sexual Activity Alcohol use: Not Currently Alcohol/week: 42.0 standard drinks of alcohol Types: 42 Cans of beer per week Comment: Last alcohol use in May 2022 Drug use: Not Currently Sexual activity: Not on file Other Topics Concern Not on file Social History Narrative Not on file Social Determinants of Health Financial Resource Strain: Not on file Food Insecurity: Not on file Transportation Needs: Not on file Physical Activity: Not on file Intimate Partner Violence: Not on file Housing Stability: Not on file Physical Exam: Patient Vitals for the past 8 hrs: BP Pulse Resp SpO2 11/06/23 1400 115/85 (!) 105 23 95 % 11/06/23 1345 112/78 98 20 96 % 11/06/23 1330 113/85 96 21 95 % 11/06/23 1315 (!) 110/95 93 22 92 % 11/06/23 1300 128/79 92 21 96 % 11/06/23 1245 120/87 (!) 103 22 96 % 11/06/23 1230 126/57 99 15 94 % 11/06/23 1215 126/82 94 22 93 % 11/06/23 1200 124/85 93 16 96 % 11/06/23 1145 126/87 95 20 91 % 11/06/23 1130 133/82 86 20 95 % 11/06/23 1115 157/78 99 18 94 % 11/06/23 1100 142/83 97 18 94 % 11/06/23 1045 (!) 147/94 89 16 98 % 11/06/23 1030 (!) 141/91 99 27 94 % 11/06/23 1025 -- 87 19 96 % 11/06/23 1015 143/82 (!) 102 21 95 % 11/06/23 1010 -- 95 21 96 % 11/06/23 1008 -- 99 21 96 % 11/06/23 1007 -- 93 16 95 % 11/06/23 1006 (!) 132/96 96 12 94 % 11/06/23 1005 (!) 132/96 (!) 111 -- -- GEN- Appears somnolent, though will direct attention towards examiner's voice, oriented to self andage, following simple commands appropriately, there is some loss of fluency of speech, unable to identify hammock in the NIHSS booklet (though able to identify other objects), Mild dysarthria CN- PERRL, VFFTC, EOMI, no facial asymmetry, tongue midline, palate rises symmetrically MOTOR- There is subtle drift towards bed in RUE and RLE, No drift in LUE/LLE SENSATION - intact and symmetric to LT in BUE/BLE without evidence of sensory extinction CEREBELLUM - FTN intact (has some difficulty performing this on the RUE though not clearly ataxic),HTS intact CV/PULM - Irregularly irregular, no murmurs; respirations appear unlabored Labs: I/O 24 Hours: No intake/output data recorded. I/O this shift: In: - Out: 400 [Urine:400] Recent Labs 11/06/23 1007 WBC 9.6* HGB 16.2 HCT 47.2 PLATELET 154 NEUTROABS 6.25* Recent Labs 11/06/23 1007 NA 142 K 4.7 CL 105 CO2 26 BUN 24* CREATININE 0.87 GLUCOSE 248* Recent Labs 11/06/23 1007 CALCIUM 9.1 MAGNESIUM 0.90 PHOS 2.7 No results for input(s): AST, ALT, ALKPHOS, BILITOT, BILIDIR, LDH in the last 168 hours. No results for input(s): TROPONINT, CK in the last 168 hours. No results for input(s): PHART, OYU4TGX, PO2ART, QUB9BBU in the last 168 hours. Recent Labs 11/06/23 1007 INR 1.0 Lipid Panel Lab Results Component Value Date CHLPL 192 11/06/2023 HDL 61 11/06/2023 CHOLHDL 3.1 11/06/2023 LDLDIRECT 112 11/06/2023 Recent Labs 11/06/23 1007 HA1C 7.7* Diagnostic Tests and Imaging: CTH / CTA 11/06/23: IMPRESSION 1. No acute intracranial hemorrhage. 2. Occlusion of the left pericallosal BRUCE. 3. 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 4. Severe stenosis of the left ICA origin. 5. Severe stenosis of the right vertebral artery origin. 6. Remote left inferior frontal infarcts. Assessment and Plan: 83 y.o. male with PMH of permanent AFIB (on Eliquis though held since evening dose on 11/01), TII DM, CAD s/p stenting May (on Plavix), HLD, HFrEF, MV repair for mitral valve prolapse in 2000, prior GIB on ASA (iso duodenal and colonic angiectasias), PAD (s/p LLE ACLI s/p embolectomy with 4 compartment fasciotomy), and basal cell carcinoma who presented to the ED as a stroke alert for acute onset of R sided weakness, AMS, and aphasia. He was on his way into the building today for planned Watchmen procedure. NIHSS of 5 on our initial evaluation. CTH did not show evidence of acute bleed, CTA showed a distal left BRUCE (A2/3 segment) occlusion not amendable to MT. Security footage reviewed and there was no clear head strike during the fall. Initial trauma eval without contraindication forlytics. Tpa was started at 1101 (eligible for tPA as he has been off his home AC for several days).Etiology of stroke suspected cardioembolic in setting of holding AC. Pt will be admitted to NCCU for post-tPA care. #Neuro: -s/p tpa (given at 1101 on 11/06) -CTH/CTA as above -MRI brain wo when able -EKG -tele -TTE when able -post tpa care per NCCU Pt was seen with attending neurologist Dr. Galilea Fournier MD Please page Vascular Neurology at #[phone] with any questions. Miguel Arias DO Neurology Resident, PGY-3 11/06/23 Department [place] [address] Associated attestation - Galilea Fournier MD - 11/06/2023 5:01 PM EST Neurology Staff Note I have reviewed the resident's history during the visit and I agree with the details as written. Myphysical examination confirms the resident's findings. The assessment and plan were formulated in discussion with me at the time of the visit and I agree with them as documented. 83 yo man off apixaban with last dose 11/01, here for LASHAY occlusion device placement, while [facility] developed R leg weakness as witnessed on the hospital surveillance cameras at 9:34AM and fell to the R. On exam he has an expressive> receptive aphasia, R arm and leg drift (although may be associatedwith pain), and dysarthria. CT head with no bleed. CTA with L distal BRUCE occlusion. Risk/benefit of IV TPA discussed with patient and his extensively and patient and both decided to proceed with thrombolytics which were given as soon as cleared by trauma. Total critical care time: Approximately 36 minutes Due to a high probability of clinically significant, life threatening deterioration, the patient required my highest level of preparedness to intervene emergently and I personally spent this criticalcare time directly and personally managing the patient. This critical care time included obtaining a history; examining the patient; ordering and review of studies; arranging urgent treatment with IVthrombolytics for acute ischemic stroke and development of a management plan; evaluation of patient's response to treatment; frequent reassessment; and, discussions with ED, trauma, neuroradiology and neuro IR. This critical care time was performed to assess and manage the high probability of imminent, life-threatening deterioration that could result in permanent brain injury. It was exclusive of separatelybillable procedures and treating other patients and teaching time. * ED Triage - Kirstin Staley RN - 11/06/2023 9:53 AM EST Patient to ED after code white. Patient was here for a watchmen. Patient tripped and fell. Hit his head. Loc ? +blood thinners. reports patient is slow to answer questions. Patient is unable to recall what month it is. Trauma Alert called by Dr. Traore documented in this encounter Plan of Treatment Not on file documented as of this encounter Procedures Procedure Name Priority Date/Time Associated Diagnosis Comments POCT GLUCOSE Routine 11/12/2023 7:46 AM EST HEMOGRAM Routine 11/12/2023 6:04 AM EST DIFFERENTIAL, AUTOMATED Routine 11/12/2023 6:04 AM EST CBC (WITH DIFF) Routine 11/12/2023 6:04 AM EST PHOSPHORUS Routine 11/12/2023 6:04 AM EST MAGNESIUM Routine 11/12/2023 6:04 AM EST BASIC METABOLIC PANEL Routine 11/12/2023 6:04 AM EST POCT GLUCOSE Routine 11/12/2023 3:57 AM EST POCT GLUCOSE Routine 11/11/2023 11:33 PM EST POCT GLUCOSE Routine 11/11/2023 8:26 PM EST POCT GLUCOSE Routine 11/11/2023 3:52 PM EST POCT GLUCOSE Routine 11/11/2023 11:44 AM EST POCT GLUCOSE Routine 11/11/2023 6:13 AM EST HEMOGRAM Routine 11/11/2023 4:45 AM EST DIFFERENTIAL, AUTOMATED Routine 11/11/2023 4:45 AM EST CBC (WITH DIFF) Routine 11/11/2023 4:45 AM EST PHOSPHORUS Routine 11/11/2023 4:45 AM EST MAGNESIUM Routine 11/11/2023 4:45 AM EST BASIC METABOLIC PANEL Routine 11/11/2023 4:45 AM EST POCT GLUCOSE Routine 11/11/2023 3:59 AM EST POCT GLUCOSE Routine 11/10/2023 11:06 PM EST POCT GLUCOSE Routine 11/10/2023 8:16 PM EST POCT GLUCOSE Routine 11/10/2023 3:58 PM EST POCT GLUCOSE Routine 11/10/2023 11:44 AM EST POCT GLUCOSE Routine 11/10/2023 7:53 AM EST POCT GLUCOSE Routine 11/10/2023 6:13 AM EST HEMOGRAM Routine 11/10/2023 5:05 AM EST DIFFERENTIAL, AUTOMATED Routine 11/10/2023 5:05 AM EST CBC (WITH DIFF) Routine 11/10/2023 5:05 AM EST PHOSPHORUS Routine 11/10/2023 5:05 AM EST MAGNESIUM Routine 11/10/2023 5:05 AM EST BASIC METABOLIC PANEL Routine 11/10/2023 5:05 AM EST POCT GLUCOSE Routine 11/10/2023 3:49 AM EST POCT GLUCOSE Routine 11/09/2023 11:26 PM EST POCT GLUCOSE Routine 11/09/2023 8:12 PM EST POCT GLUCOSE Routine 11/09/2023 3:15 PM EST POCT GLUCOSE Routine 11/09/2023 8:40 AM EST HEMOGRAM Routine 11/09/2023 6:18 AM EST DIFFERENTIAL, AUTOMATED Routine 11/09/2023 6:18 AM EST CBC (WITH DIFF) Routine 11/09/2023 6:18 AM EST PHOSPHORUS Routine 11/09/2023 6:18 AM EST MAGNESIUM Routine 11/09/2023 6:18 AM EST BASIC METABOLIC PANEL Routine 11/09/2023 6:18 AM EST POCT GLUCOSE Routine 11/08/2023 9:00 PM EST POCT GLUCOSE Routine 11/08/2023 5:26 PM EST MRI BRAIN WO CONTRAST STAT 11/08/2023 1:19 PM EST POCT GLUCOSE Routine 11/08/2023 11:53 AM EST POCT GLUCOSE Routine 11/08/2023 8:33 AM EST HEMOGRAM Routine 11/08/2023 2:27 AM EST DIFFERENTIAL, AUTOMATED Routine 11/08/2023 2:27 AM EST CBC (WITH DIFF) Routine 11/08/2023 2:27 AM EST PHOSPHORUS Routine 11/08/2023 2:27 AM EST MAGNESIUM Routine 11/08/2023 2:27 AM EST BASIC METABOLIC PANEL Routine 11/08/2023 2:27 AM EST POCT GLUCOSE Routine 11/07/2023 8:12 PM EST POCT GLUCOSE Routine 11/07/2023 5:58 PM EST POCT GLUCOSE Routine 11/07/2023 12:[address] HEAD WO CONTRAST (GENERIC) Routine 11/07/2023 11:17 AM EST POCT GLUCOSE Routine 11/07/2023 8:13 AM EST HEMOGRAM Routine 11/07/2023 2:30 AM EST DIFFERENTIAL, AUTOMATED Routine 11/07/2023 2:30 AM EST CBC (WITH DIFF) Routine 11/07/2023 2:30 AM EST PHOSPHORUS Routine 11/07/2023 2:30 AM EST MAGNESIUM Routine 11/07/2023 2:30 AM EST BASIC METABOLIC PANEL Routine 11/07/2023 2:30 AM EST MRI BRAIN WO CONTRAST Routine 11/06/2023 10:08 PM EST POCT GLUCOSE Routine 11/06/2023 8:58 PM EST POCT GLUCOSE Routine 11/06/2023 4:27 PM EST ECHO COMPLETE Routine 11/06/2023 3:57 PM EST Cerebrovascular accident (CVA), unspecified mechanism POCT GLUCOSE Routine 11/06/2023 2:55 PM EST XR KNEE AP & LAT RIGHT STAT 11:54 AM EST XR WRIST 3 VIEWS RIGHT STAT 11:54 AM EST XR SHOULDER RIGHT STAT 11/06/2023 11: 54 AM EST XR ELBOW 3 VIEWS RIGHT (GENERIC) STAT 11/06/2023 11:[address] CERVICAL SPINE RECONSTRUCTION STAT 11/06/2023 10:[address] THORACIC SPINE RECONSTRUCTION STAT 11/06/2023 10:[address] LUMBAR SPINE RECONSTRUCTION STAT 11/06/2023 10:[address] CHEST ABDOMEN PELVIS W CONTRAST (GENERIC) STAT 11/06/2023 10:[address] HEAD WO & MULTIPHASE CTA HEAD/NECK W (STROKE PROTOCOL) STAT 11/06/2023 10:40 AM EST EKG 12-LEAD STAT 11/06/2023 10:34 AM EST BLOOD GAS VENOUS POC Routine 11/06/2023 10:11 AM EST XR CHEST AP AND PELVIS AP TRAUMA STAT 11/06/2023 10:08 AM EST ABORH RECHECK STATUS Routine 11/06/2023 10:07 AM EST HEMOGRAM STAT 11/06/2023 10:07 AM EST DIFFERENTIAL, AUTOMATED STAT 11/06/2023 10:07 AM EST GOLD TUBE HOLD STAT 11/06/2023 10:07 AM EST HC PARTIAL THROMBOPLASTIN TIME STAT 11/06/2023 10:07 AM EST PROTHROMBIN TIME STAT 11/06/2023 10:0 7 AM EST CBC (WITH DIFF) STAT 11/06/2023 10:07 AM EST TYPE AND SCREEN ([facility]/CGP/MYLES) STAT 11/06/2023 10:07 AM EST PHOSPHORUS STAT 11/06/2023 10:07 AM EST MAGNESIUM STAT 11/06/2023 10:07 AM EST LDL CHOLESTEROL, DIRECT STAT 11/06/2023 10:07 AM EST HDL/CHOL PROFILE STAT 11/06/2023 10:0 7 AM EST HEMOGLOBIN A1C STAT 11/06/2023 10:07 AM EST ETHANOL LEVEL STAT 11/06/2023 10:07 AM EST BASIC METABOLIC PANEL STAT 11/06/2023 10:07 AM EST RAPID DRUG SCREEN, URINE STAT 11/06/2023 10:04 AM EST RAPID DRUG SCREEN W/O CONFIRMATION, URINE STAT 11/06/2023 10:04 AM EST URINALYSIS MICROSCOPIC EXAM STAT 11/06/2023 10:03 AM EST URINALYSIS WITH REFLEX CULTURE STAT 11/06/2023 10:03 AM EST POCT GLUCOSE Routine 11/06/2023 9:59 AM EST documented in this encounter Results * POCT Glucose (11/12/2023 7:46 AM EST) Glucose, POC 140 65 - 199 mg/dL [facility] Comment: Supplemental ranges: <140 mg/dL before meals <180 mg/dL all other times of the day Blood 11/12/2023 7:46 AM EST 11/12/2023 7:46 AM EST Galilea Fournier MD POINT OF CARE TEST O RDERABLES [facility] [place] [address] * Differential, Automated (11/12/2023 6:04 AM EST) Neutrophil % 66.1 % [facility] Neutrophil Absolute 4.60 1.70 - 6.10 x10(3)/[facility] Lymph % 20.7 % [facility] Lymphocytes Abs 1.4 0.9 - 3.2 x10(3)/[facility] Monocyte % 10.4 % [facility] Monocyte Abs 0.7 0.3 - 0.9 x10(3)/[facility] Eos % 1.6 % [facility] Eosinophils Abs 0.1 0.0 - 0.4 x10(3)/[facility] Basophil % 0.9 % [facility] Baso Absolute 0.1 0.0 - 0.1 x10(3)/[facility] Immature Gran % 0.30 % [facility] Comment: Immature granulocytes(IG's)percentage and absolute count will include metamyelocytes, myelocytes, and promyelocytes. Blood smears from CBCs yielding IG's will be scanned manually for concordance. If this scan disagrees with the automated IG or if promyelocytes are noted, a manual differential will be performed. Immature Gran Absolute 0.02 0.00 - 0.04 x10(3)/[facility]ATORY Blood 11/12/2023 6:04 AM EST 11/12/2023 6:39 AM EST Narrative Resulting Agency Comment Spec In Lab Barbie Long [facility] ORDERAB LES [facility] [place] [address] * (ABNORMAL) Hemogram (11/12/2023 6:04 AM EST) White Blood Cell 7.0 4.0 - 9.5 x10(3)/mc L [facility] Red Blood Cell 5.21 4.58 - 5.54 x10(6)/mc L [facility] Hemoglobin 16.4 13.7 - 16.5 g/dL [facility] Hematocrit 47.4 40.5 - 48.5 % [facility] Mean Cell Volume 91.0 82.9 - 93.1 fL [facility] Mean Cell Hemoglobin 31.5 27.5 - 32.1 pg [facility] Mean Cell Hemoglobin Concentration 34.6 32.0 - 35.7 g/dL [facility] Platelet 133(L) 145 - 357 x10(3)/mc L [facility] RDW Standard Deviation 42.0 36.0 - 45.0 fL [facility] RDW coefficient of variation 12.7 11.4 - 13.8 % [facility] Mean Platelet Volume 10.4 7.6 - 12.9 fL [facility] NRBC% auto 0.0 % [facility] NRBC Absolute 0.000 0.000 - 0.000 x10(3)/mc L [facility] Blood 11/12/2023 6:04 AM EST 11/12/2023 6:39 AM EST Narrative Resulting Agency Comment Spec In Lab Barbie Long [facility]AT[facility] ORDERAB LES [facility] [place] [address] * Phosphorus (11/12/2023 6:04 AM EST) Phosphorus 2.8 2.5 - 4.5 mg/dL [facility] Blood 11/12/2023 6:04 AM EST 11/12/2023 6:39 AM EST Narrative Resulting Agency Comment Spec In Lab Barbie Long [facility]MI[facility] ORDERABL ES Performing Organization Address [facility] Co de Phone Number [facility] [place] [address] * Magnesium (11/12/2023 6:04 AM EST) Magnesium 0.84 0.69 - 1.07 mmol/L [facility] Blood 11/12/2023 6:04 AM EST 11/12/2023 6:39 AM EST Narrative Resulting Agency Comment Spec In Lab Barbie Long CHROME TANNER CHEMISTRY ORDERABL ES Performing Organization Address [facility] Phone Number [facility] [place] [address] * (ABNORMAL) Basic Metabolic Panel (non-fasting) (11/12/2023 6:04 AM EST) Glucose 159 65 - 199 mg/dL [facility] Comment:Diabetes: >=200 mg/d L plus symptoms Blood Urea Nitrogen 24(H) 10 - 20 mg/dL [facility] Creatinine 0.87 0.80 - 1.50 mg/dL [facility] Sodium 139 135 - 145 mmol/L [facility] Potassium 4.1 3.5 - 5.0 mmol/L [facility] Comment: Please note: ??Patients with WBC >100,000 may have falsely elevated Potassium levels. ??For accurate Potassium quantification in these patients send serum separator tube (gold top) for subsequent determinations. ??Contact the Clinical Chemistry Laboratory if there are any questions. Chloride 104 98 - 107 mmol/L [facility] Carbon Dioxide 23 22 - 31 mmol/L [facility] Anion Gap 12 5 - 15 mmol/L [facility] Calcium 9.0 8.5 - 10.5 mg/dL [facility] Est Glomerular Filtration Rate 87 >=60 mL/min/1. 73 m?? [facility] Comment: This patient's estimated GFR was calculated using the 2020 CKD-EPI equation. The estimated [...] mass and symptoms in addition to eGFR. Blood 11/12/2023 6:04 AM EST 11/12/2023 6:39 AM EST Narrative Resulting Agency Comment Spec In Lab Barbie Long APRN CHEMISTRY ORDERABL ES Performing Organization Address [facility] Co de Phone Number [facility] [place] [address] * POCT Glucose (11/12/2023 3:57 AM EST) Glucose, POC 157 65 - 199 mg/dL [facility] Comment: Supplemental ranges: <140 mg/dL before meals <180 mg/dL all other times of the day Blood 11/12/2023 3:57 AM EST 11/12/2023 3:57 AM EST Galilea Fournier MD POINT OF CARE TEST O RDERABLES Performing Organization Address [facility] Co de Phone Number [facility] [place] [address] * POCT Glucose (11/11/2023 11:33 PM EST) Glucose, POC 138 65 - 199 mg/dL [facility] Comment: Supplemental ranges: <140 mg/dL before meals <180 mg/dL all other times of the day Blood 11/11/2023 11:3 3 PM EST 11/11/2023 11:33 PM EST Galilea Fournier MD POINT OF CARE TEST O RDERABLES Performing Organization Address [facility] Co de Phone Number [facility] [place] [address] * POCT Glucose (11/11/2023 8:26 PM EST) Glucose, POC 149 65 - 199 mg/dL [facility] Comment: Supplemental ranges: <140 mg/dL before meals <180 mg/dL all other times of the day Blood 11/11/2023 8:26 PM EST 11/11/2023 8:26 PM EST Galilea Fournier MD POINT OF CARE TEST O RDERAJERRY [facility] [place] [address] * (ABNORMAL) POCT Glucose (11/11/2023 3:52 PM EST) Glucose, POC 228(H) 65 - 199 mg/dL [facility] Comment: Supplemental ranges: <140 mg/dL before meals <180 mg/dL all other times of the day Blood 11/11/2023 3:52 PM EST 11/11/2023 3:52 PM EST Galilea Fournier MD POINT OF CARE TEST O RDERAJERRY [facility] [place] [address] * POCT Glucose (11/11/2023 11:44 AM EST) Glucose, POC 150 65 - 199 mg/dL [facility] Comment: Supplemental ranges: <140 mg/dL before meals <180 mg/dL all other times of the day Blood 11/11/2023 11:4 4 AM EST 11/11/2023 11:44 AM EST Galilea Fournier MD POINT OF CARE TEST O RDERAJERRY [facility] [place] [address] * POCT Glucose (11/11/2023 6:13 AM EST) Glucose, POC 142 65 - 199 mg/dL [facility] Comment: Supplemental ranges: <140 mg/dL before meals <180 mg/dL all other times of the day Blood 11/11/2023 6:13 AM EST 11/11/2023 6:13 AM EST Galilea Fournier MD POINT OF CARE TEST O RDERABLES [facility] [place] [address] * (ABNORMAL) Differential, Automated (11/11/2023 4:45 AM EST) Pathologist [facility] Neutrophil % 67.5 % [facility] Neutrophil Absolute 5.02 1.70 - 6.10 x10(3)/mc L [facility] Lymph % 18.8 % [facility] Lymphocytes Abs 1.4 0.9 - 3.2 x10(3)/[facility] Monocyte % 10.8 % [facility] Monocyte Abs 0.8 0.3 - 0.9 x10(3)/mc L [facility] Eos % 1.5 % [facility] Eosinophils Abs 0.1 0.0 - 0.4 x10(3)/[facility] Basophil % 0.7 % [facility] Baso Absolute 0.0 0.0 - 0.1 x10(3)/mc L [facility] Immature Gran % 0.70 % [facility] Comment: Immature granulocytes(IG's)percentage and absolute count will include metamyelocytes, myelocytes, and promyelocytes. Blood smears from CBCs yielding IG's will be scanned manually for concordance. If this scan disagrees with the automated IG or if promyelocytes are noted, a manual differential will be performed. Immature Gran Absolute 0.05(H) 0.00 - 0.04 x10(3)/mc L [facility] Blood 11/11/2023 4:45 AM EST 11/11/2023 5:19 AM EST Narrative Resulting Agency Comment Spec In Lab Barbie L Miles CHROME TANNER HEMATOLOGY ORDERAB LES [facility] [place] [address] * (ABNORMAL) Hemogram (11/11/2023 4:45 AM EST) White Blood Cell 7.4 4.0 - 9.5 x10(3)/mc L [facility] Red Blood Cell 5.01 4.58 - 5.54 x10(6)/mc L [facility] Hemoglobin 15.8 13.7 - 16.5 g/dL [facility] Hematocrit 46.0 40.5 - 48.5 % [facility] Mean Cell Volume 91.8 82.9 - 93.1 fL [facility] Mean Cell Hemoglobin 31.5 27.5 - 32.1 pg [facility] Mean Cell Hemoglobin Concentration 34.3 32.0 - 35.7 g/dL [facility] Platelet 138(L) 145 - 357 x10(3)/mc L [facility] RDW Standard Deviation 43.7 36.0 - 45.0 fL [facility] RDW coefficient of variation 12.9 11.4 - 13.8 % [facility] Mean Platelet Volume 10.9 7.6 - 12.9 fL [facility] NRBC% auto 0.0 % [facility] NRBC Absolute 0.000 0.000 - 0.000 x10(3)/mc L [facility] Blood 11/11/2023 4:45 AM EST 11/11/2023 5:19 AM EST Narrative Resulting Agency Comment Spec In Lab Barbie Long APRN HEMATOLOGY ORDERAB LES [facility] [place] [address] * Phosphorus (11/11/2023 4:45 AM EST) Phosphorus 2.8 2.5 - 4.5 mg/dL [facility] Blood 11/11/2023 4:45 AM EST 11/11/2023 5:19 AM EST Narrative Resulting Agency Comment Spec In Lab Barbie Long CHROME TANNER CHEMISTRY ORDERABL ES Performing Organization Address City/[facility]/ZIP Co de Phone Number [facility] [address] * Magnesium (11/11/2023 4:45 AM EST) Magnesium 0.86 0.69 - 1.07 mmol/L [facility] Blood 11/11/2023 4:45 AM EST 11/11/2023 5:19 AM EST Narrative Resulting Agency Comment Spec In Lab Barbie Long CHROME TANNER CHEMISTRY ORDERABL ES Performing Organization Address [facility] Co de Phone Number [facility] [address] * (ABNORMAL) Basic Metabolic Panel (non-fasting) (11/11/2023 4:45 AM EST) Glucose 206(H) 65 - 199 mg/dL [facility] Comment:Diabetes: >=200 mg/d L plus symptoms Blood Urea Nitrogen 20 10 - 20 mg/dL [facility] Creatinine 0.79(L) 0.80 - 1.50 mg/dL [facility] Sodium 139 135 - 145 mmol/L [facility] Potassium 3.9 3.5 - 5.0 mmol/L [facility] Comment: Please note: ??Patients with WBC >100,000 may have falsely elevated Potassium levels. ??For accurate Potassium quantification in these patients send serum separator tube (gold top) for subsequent determinations. ??Contact the Clinical Chemistry Laboratory if there are any questions. Chloride 103 98 - 107 mmol/L [facility] Carbon Dioxide 25 22 - 31 mmol/L [facility] Anion Gap 11 5 - 15 mmol/L [facility] Calcium 9.1 8.5 - 10.5 mg/dL [facility] Est Glomerular Filtration Rate 89 >=60 mL/min/1. 73 m?? [facility] Comment: This patient's estimated GFR was calculated using the 2020 CKD-EPI equation. The estimated [...] mass and symptoms in addition to eGFR. Blood 11/11/2023 4:45 AM EST 11/11/2023 5:19 AM EST Narrative Resulting Agency Comment Spec In Lab Barbie Gail Long APRN CHEMISTRY ORDERABL ES Performing Organization Address [facility] Co de Phone Number [facility] [place] [address] * POCT Glucose (11/11/2023 3:59 AM EST) Glucose, POC 198 65 - 199 mg/dL [facility] Comment: Supplemental ranges: <140 mg/dL before meals <180 mg/dL all other times of the day Blood 11/11/2023 3:59 AM EST 11/11/2023 3:59 AM EST Galilea Fournier MD POINT OF CARE TEST O RDERABLES Performing Organization Address [facility] Co de Phone Number [facility] [address] * POCT Glucose (11/10/2023 11:06 PM EST) Glucose, POC 134 65 - 199 mg/dL [facility] Comment: Supplemental ranges: <140 mg/dL before meals <180 mg/dL all other times of the day Blood 11/10/2023 11:0 6 PM EST 11/10/2023 11:06 PM EST Galilea Fournier MD POINT OF CARE TEST O RDERABLES Performing Organization Address [facility] Co de Phone Number [facility] [address] * POCT Glucose (11/10/2023 8:16 PM EST) Glucose, POC 152 65 - 199 mg/dL [facility] Comment: Supplemental ranges: <140 mg/dL before meals <180 mg/dL all other times of the day Blood 11/10/2023 8:16 PM EST 11/10/2023 8:16 PM EST Galilea Fournier MD POINT OF CARE TEST O RDERABLES Performing Organization Address City/[facility] Co de Phone Number [facility] [address] * POCT Glucose (11/10/2023 3:58 PM EST) Glucose, POC 150 65 - 199 mg/dL [facility] Comment: Supplemental ranges: <140 mg/dL before meals <180 mg/dL all other times of the day Blood 11/10/2023 3:58 PM EST 11/10/2023 3:58 PM EST Galilea Fournier MD POINT OF CARE TEST O RDERAJERRY Performing Organization Address [facility] Co de Phone Number [facility] [address] * POCT Glucose (11/10/2023 11:44 AM EST) Glucose, POC 180 65 - 199 mg/dL [facility] Comment: Supplemental ranges: <140 mg/dL before meals <180 mg/dL all other times of the day Blood 11/10/2023 11:4 4 AM EST 11/10/2023 11:44 AM EST Galilea Fournier MD POINT OF CARE TEST O RDERABLES Performing Organization Address City/[facility] Co de Phone Number [facility] [address] * POCT Glucose (11/10/2023 7:53 AM EST) Glucose, POC 172 65 - 199 mg/dL [facility] Comment: Supplemental ranges: <140 mg/dL before meals <180 mg/dL all other times of the day Blood 11/10/2023 7:53 AM EST 11/10/2023 7:53 AM EST Galilea Fournier MD POINT OF CARE TEST O RDERABLES Performing Organization Address City/[facility]/ZIP Co de Phone Number [facility] [address] * POCT Glucose (11/10/2023 6:13 AM EST) Glucose, POC 124 65 - 199 mg/dL [facility] Comment: Supplemental ranges: <140 mg/dL before meals <180 mg/dL all other times of the day Blood 11/10/2023 6:13 AM EST 11/10/2023 6:13 AM EST Galilea Fournier MD POINT OF CARE TEST O RADHA Performing Organization Address [facility] Co de Phone Number [facility] [address] * Differential, Automated (11/10/2023 5:05 AM EST) Neutrophil % 68.4 % [facility] Neutrophil Absolute 5.43 1.70 - 6.10 x10(3)/[facility] Lymph % 18.5 % [facility] Lymphocytes Abs 1.5 0.9 - 3.2 x10(3)/[facility] Monocyte % 10.8 % [facility] Monocyte Abs 0.9 0.3 - 0.9 x10(3)/[facility] Eos % 1.4 % [facility] Eosinophils Abs 0.1 0.0 - 0.4 x10(3)/[facility] Basophil % 0.4 % [facility] Baso Absolute 0.0 0.0 - 0.1 x10(3)/[facility] Immature Gran % 0.50 % [facility] Comment: Immature granulocytes(IG's)percentage and absolute count will include metamyelocytes, myelocytes, and promyelocytes. Blood smears from CBCs yielding IG's will be scanned manually for concordance. If this scan disagrees with the automated IG or if promyelocytes are noted, a manual differential will be performed. Immature Gran Absolute 0.04 0.00 - 0.04 x10(3)/mcL [facility] Blood 11/10/2023 5:05 AM EST 11/10/2023 5:40 AM EST Narrative Resulting Agency Comment Spec In Lab Barbie Long CHROME TANNER HEMATOLOGY ORDERAB LES Performing Organization Address City/[facility]/ZIP Co de Phone Number [facility] [address] * (ABNORMAL) Hemogram (11/10/2023 5:05 AM EST) White Blood Cell 7.9 4.0 - 9.5 x10(3)/mc L [facility] Red Blood Cell 5.05 4.58 - 5.54 x10(6)/mc L [facility] Hemoglobin 16.1 13.7 - 16.5 g/dL [facility] Hematocrit 46.1 40.5 - 48.5 % [facility] Mean Cell Volume 91.3 82.9 - 93.1 fL [facility] Mean Cell Hemoglobin 31.9 27.5 - 32.1 pg [facility] Mean Cell Hemoglobin Concentration 34.9 32.0 - 35.7 g/dL [facility] Platelet 135(L) 145 - 357 x10(3)/mc L [facility] RDW Standard Deviation 43.1 36.0 - 45.0 fL [facility] RDW coefficient of variation 12.9 11.4 - 13.8 % [facility] Mean Platelet Volume 10.8 7.6 - 12.9 fL [facility] NRBC% auto 0.0 % [facility] NRBC Absolute 0.000 0.000 - 0.000 x10(3)/mc L [facility] Blood 11/10/2023 5:05 AM EST 11/10/2023 5:40 AM EST Narrative Resulting Agency Comment Spec In Lab Barbie Long CHROME TANNER HEMATOLOGY ORDERAB LES [facility] [place] [address] * Phosphorus (11/10/2023 5:05 AM EST) Phosphorus 3.4 2.5 - 4.5 mg/dL [facility] Blood 11/10/2023 5:05 AM EST 11/10/2023 5:40 AM EST Narrative Resulting Agency Comment Spec In Lab Barbie Long CHROME TANNER CHEMISTRY ORDERABL ES Performing Organization Address [facility] de Phone Number [facility] [address] * Magnesium (11/10/2023 5:05 AM EST) Magnesium 0.90 0.69 - 1.07 mmol/L [facility] Blood 11/10/2023 5:05 AM EST 11/10/2023 5:40 AM EST Narrative Resulting Agency Comment Spec In Lab Barbie Long CHROME TANNER CHEMISTRY ORDERABL ES Performing Organization Address [facility] de Phone Number [facility] [address] * (ABNORMAL) Basic Metabolic Panel (non-fasting) (11/10/2023 5:05 AM EST) Glucose 141 65 - 199 mg/dL [facility] Comment:Diabetes: >=200 mg/d L plus symptoms Blood Urea Nitrogen 23(H) 10 - 20 mg/dL [facility] Creatinine 0.97 0.80 - 1.50 mg/dL [facility] Sodium 141 135 - 145 mmol/L [facility] Potassium 4.2 3.5 - 5.0 mmol/L [facility] Comment: Please note: ??Patients with WBC >100,000 may have falsely elevated Potassium levels. ??For accurate Potassium quantification in these patients send serum separator tube (gold top) for subsequent determinations. ??Contact the Clinical Chemistry Laboratory if there are any questions. Chloride 104 98 - 107 mmol/L [facility] Carbon Dioxide 25 22 - 31 mmol/L [facility] Anion Gap 12 5 - 15 mmol/L [facility] Calcium 9.1 8.5 - 10.5 mg/dL [facility] Est Glomerular Filtration Rate 78 >=60 mL/min/1. 73 m?? [facility] Comment: This patient's estimated GFR was calculated using the 2020 CKD-EPI equation. The estimated [...] mass and symptoms in addition to eGFR. Blood 11/10/2023 5:05 AM EST 11/10/2023 5:40 AM EST Narrative Resulting Agency Comment Spec In Lab Barbie Long APRN CHEMISTRY ORDERABL ES Performing Organization Address [facility] Co de Phone Number [facility] [place] [address] * POCT Glucose (11/10/2023 3:49 AM EST) Glucose, POC 122 65 - 199 mg/dL [facility] Comment: Supplemental ranges: <140 mg/dL before meals <180 mg/dL all other times of the day Blood 11/10/2023 3:49 AM EST 11/10/2023 3:49 AM EST Galilea Fournier MD POINT OF CARE TEST O RDERABLES [facility] [address] * POCT Glucose (11/09/2023 11:26 PM EST) Glucose, POC 142 65 - 199 mg/dL [facility] Comment: Supplemental ranges: <140 mg/dL before meals <180 mg/dL all other times of the day Blood 11/09/2023 11:2 6 PM EST 11/09/2023 11:26 PM EST Galilea Fournier MD POINT OF CARE TEST O RDERABLES Performing Organization Address City/[facility]/ZIP Co de Phone Number [facility] [address] * POCT Glucose (11/09/2023 8:12 PM EST) Glucose, POC 160 65 - 199 mg/dL [facility] Comment: Supplemental ranges: <140 mg/dL before meals <180 mg/dL all other times of the day Blood 11/09/2023 8:12 PM EST 11/09/2023 8:12 PM EST Galilea Fournier MD POINT OF CARE TEST O RDERABLES Performing Organization Address [facility] Co de Phone Number [facility] [address] * (ABNORMAL) POCT Glucose (11/09/2023 3:15 PM EST) Glucose, POC 235(H) 65 - 199 mg/dL [facility] Comment: Supplemental ranges: <140 mg/dL before meals <180 mg/dL all other times of the day Blood 11/09/2023 3:15 PM EST 11/09/2023 3:15 PM EST Galilea Fournier MD POINT OF CARE TEST O RDERABLES Performing Organization Address [facility] Co de Phone Number [facility] [address] * POCT Glucose (11/09/2023 8:40 AM EST) Glucose, POC 157 65 - 199 mg/dL [facility] Comment: Supplemental ranges: <140 mg/dL before meals <180 mg/dL all other times of the day Blood 11/09/2023 8:40 AM EST 11/09/2023 8:40 AM EST Galilea Fournier MD POINT OF CARE TEST O RDERABLES Performing Organization Address City/[facility] Co de Phone Number [facility] [address] * (ABNORMAL) Differential, Automated (11/09/2023 6:18 AM EST) Neutrophil % 70.3 % [facility] Neutrophil Absolute 6.30(H) 1.70 - 6.10 x10(3)/ L [facility] Lymph % 16.2 % [facility] Lymphocytes Abs 1.4 0.9 - 3.2 x10(3)/ L [facility] Monocyte % 11.3 % [facility] Monocyte Abs 1.0(H) 0.3 - 0.9 x10(3)/ L [facility] Eos % 1.2 % [facility] Eosinophils Abs 0.1 0.0 - 0.4 x10(3)/[facility] Basophil % 0.6 % [facility] Baso Absolute 0.0 0.0 - 0.1 x10(3)/ L [facility] Immature Gran % 0.40 % [facility] Comment: Immature granulocytes(IG's)percentage and absolute count will include metamyelocytes, myelocytes, and promyelocytes. Blood smears from CBCs yielding IG's will be scanned manually for concordance. If this scan disagrees with the automated IG or if promyelocytes are noted, a manual differential will be performed. Immature Gran Absolute 0.04 0.00 - 0.04 x10(3)/[facility] Blood 11/09/2023 6:18 AM EST 11/09/2023 6:29 AM EST Narrative Resulting Agency Comment Spec In Lab Barbie Gail Long APRN HEMATOLOGY ORDERAB LES [facility] [place] [address] * (ABNORMAL) Hemogram (11/09/2023 6:18 AM EST) White Blood Cell 9.0 4.0 - 9.5 x10(3)/ L [facility] Red Blood Cell 5.19 4.58 - 5.54 x10(6)/[facility] Hemoglobin 16.3 13.7 - 16.5 g/dL [facility] Hematocrit 47.1 40.5 - 48.5 % [facility] Mean Cell Volume 90.8 82.9 - 93.1 fL [facility] Mean Cell Hemoglobin 31.4 27.5 - 32.1 pg [facility] Mean Cell Hemoglobin Concentration 34.6 32.0 - 35.7 g/dL [facility] Platelet 130(L) 145 - 357 x10(3)/mc L [facility] RDW Standard Deviation 42.6 36.0 - 45.0 fL [facility] RDW coefficient of variation 12.9 11.4 - 13.8 % [facility] Mean Platelet Volume 10.2 7.6 - 12.9 fL [facility] NRBC% auto 0.0 % [facility] NRBC Absolute 0.000 0.000 - 0.000 x10(3)/mc L [facility] Blood 11/09/2023 6:18 AM EST 11/09/2023 6:29 AM EST Narrative Resulting Agency Comment Spec In Lab Barbie Long CHROME TANNER HEMATOLOGY ORDERAB LES Performing Organization Address City/[facility]/ZIP Co de Phone Number [facility] [address] * Phosphorus (11/09/2023 6:18 AM EST) Phosphorus 2.8 2.5 - 4.5 mg/dL [facility] Blood 11/09/2023 6:18 AM EST 11/09/2023 6:29 AM EST Narrative Resulting Agency Comment Spec In Lab Barbie Long CHROME TANNER CHEMISTRY ORDERABL ES Performing Organization Address City/[facility]/ZIP Co de Phone Number [facility] [address] * Magnesium (11/09/2023 6:18 AM EST) Magnesium 0.93 0.69 - 1.07 mmol/L [facility] Blood 11/09/2023 6:18 AM EST 11/09/2023 6:29 AM EST Narrative Resulting Agency Comment Spec In Lab Barbie Long HIRAL CHEMISTRY ORDERABL ES [facility] [address] * (ABNORMAL) Basic Metabolic Panel (non-fasting) (11/09/2023 6:18 AM EST) Glucose 167 65 - 199 mg/dL [facility] Comment:Diabetes: >=200 mg/d L plus symptoms Blood Urea Nitrogen 22(H) 10 - 20 mg/dL [facility] LABORATORY Creatinine 0.74(L) 0.80 - 1.50 mg/dL [facility] Sodium 140 135 - 145 mmol/L [facility] Potassium 4.0 3.5 - 5.0 mmol/L [facility] Comment: Please note: ??Patients with WBC >100,000 may have falsely elevated Potassium levels. ??For accurate Potassium quantification in these patients send serum separator tube (gold top) for subsequent determinations. ??Contact the Clinical Chemistry Laboratory if there are any questions. Chloride 105 98 - 107 mmol/L [facility] Carbon Dioxide 24 22 - 31 mmol/L [facility] Anion Gap 11 5 - 15 mmol/L [facility] Calcium 8.7 8.5 - 10.5 mg/dL [facility] Est Glomerular Filtration Rate 91 >=60 mL/min/1. 73 m?? [facility] Comment: This patient's estimated GFR was calculated using the 2020 CKD-EPI equation. The estimated [...] mass and symptoms in addition to eGFR. Blood 11/09/2023 6:18 AM EST 11/09/2023 6:29 AM EST Narrative Resulting Agency Comment Spec In Lab Barbie Long HIRAL CHEMISTRY ORDERABL ES Performing Organization Address [facility] Co de Phone Number [facility] [address] * POCT Glucose (11/08/2023 9:00 PM EST) Glucose, POC 171 65 - 199 mg/dL [facility] Comment: Supplemental ranges: <140 mg/dL before meals <180 mg/dL all other times of the day Blood 11/08/2023 9:00 PM EST 11/08/2023 9:00 PM EST Galilea Fournier MD POINT OF CARE TEST O RDERABLES Performing Organization Address [facility] Co de Phone Number [facility] [address] * (ABNORMAL) POCT Glucose (11/08/2023 5:26 PM EST) Glucose, POC 247(H) 65 - 199 mg/dL [facility] Comment: Supplemental ranges: <140 mg/dL before meals <180 mg/dL all other times of the day Blood 11/08/2023 5:26 PM EST 11/08/2023 5:26 PM EST Galilea Fournier MD POINT OF CARE TEST O RDERABLES Performing Organization Address [facility] de Phone Number [facility] [address] * MRI Brain wo Contrast (11/08/2023 1:19 PM EST) Anatomical Region Laterality Modality Head Magnetic Resonan ce Impressions 11/08/2023 1:34 PM EST No definitive interval infarct. There are more conspicuous small foci of diffusion restriction along the anterior left cingulate gyrus. 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 Few punctate foci of diffusion restriction again noted over the frontal convexities. Thank you for letting us participate in the care of this patient. ??If you are a health care provider and have any questions regarding this report, please contact the number below. ??For patients who have questions please contact the health health care attorney that requested your imaging first. ? Electronically signed by: Edson Danielle DO, [facility] ??([phone]), at 11/08/2023 1:34 PM Narrative 11/08/2023 1:34 PM EST EXAMINATION: MRI BRAIN WO CONTRAST CLINICAL HISTORY: Dizziness, non-specific; Stroke, follow up L>R bihemispheric acute stroke. Now with new-onset queasiness. Please assess whether any new infarction/hemorrhage. TECHNIQUE: MRI of the brain performed without intravenous contrast administration. COMPARISON: Brain MRI 11/06/2023, head CT 11/07/2023 FINDINGS: There are more conspicuous small foci of diffusion restriction along the anterior left cingulate gyrus. There is otherwise stable confluent left BRUCE distribution infarct involving the superior frontal gyrus without increasing mass effect or interval hemorrhage. Punctate foci of diffusion restriction identified in the frontal lobes (left greater than right) are again noted. No additional interval infarct. Intracranial flow voids on T2-weighted imaging appear maintained, with grossly similar features narrowed distal right cervical and petrous ICA segments. There is no interval ventricular dilation, or extra-axial collection. No increasing mass effect. 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 Encephalomalacia again noted in the left MCA territory and inferior right frontal lobe. Procedure Note Edson Danielle DO - 11/08/2023 EXAMINATION: MRI BRAIN WO CONTRAST CLINICAL HISTORY: Dizziness, non-specific; Stroke, follow up L>R bihemispheric acute stroke. Now with new-onset queasiness. Pleaseassess whether any new infarction/hemorrhage. TECHNIQUE: MRI of the brain performed without intravenous contrast administration. COMPARISON: Brain MRI 11/06/2023, head CT 11/07/2023 FINDINGS: There are more conspicuous small foci of diffusion restriction along the anterior left cingulate gyrus. There is otherwise stable confluent left BRUCE distribution infarctinvolving the superior frontal gyrus without increasing mass effect or intervalhemorrhage. Punctate foci of diffusion restriction identified in the frontal lobes(left greater than right) are again noted. No additional interval infarct. Intracranial flow voids on T2-weighted imaging appear maintained, withgrossly similar features narrowed distal right cervical and petrous ICAsegments. There is no interval ventricular dilation, or extra-axial collection. No increasing mass effect. 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 Encephalomalacia again noted in the left MCA territory and inferiorright frontal lobe. IMPRESSION No definitive interval infarct. There are more conspicuous small foci of diffusion restriction along the anterior left cingulate gyrus. Otherwisestable confluent left BRUCE distribution infarct, without increasing mass effector hemorrhage. Few punctate foci of diffusion restriction again noted overthe frontal convexities. Thank you for letting us participate in the care of this patient. If youare a health care provider and have any questions regarding this report,please contact the number below. For patients who have questions please contactthe health health care attorney that requested your imaging first. Barbie Long APRN IMG MRI ORDERABLES * (ABNORMAL) POCT Glucose (11/08/2023 11:53 AM EST) Glucose, POC 213(H) 65 - 199 mg/dL [facility] Comment: Supplemental ranges: <140 mg/dL before meals <180 mg/dL all other times of the day Blood 11/08/2023 11:5 3 AM EST 11/08/2023 11:53 AM EST Galilea Fournier MD POINT OF CARE TEST O RDERABLES [facility] [address] * (ABNORMAL) POCT Glucose (11/08/2023 8:33 AM EST) Glucose, POC 258(H) 65 - 199 mg/dL [facility] Comment: Supplemental ranges: <140 mg/dL before meals <180 mg/dL all other times of the day Blood 11/08/2023 8:33 AM EST 11/08/2023 8:33 AM EST Galilea Fournier MD POINT OF CARE [place] [address] * (ABNORMAL) Differential, Automated (11/08/2023 2:27 AM EST) Neutrophil % 72.0 % [facility] Neutrophil Absolute 7.19(H) 1.70 - 6.10 x10(3)/mc L [facility] Lymph % 15.0 % [facility] Lymphocytes Abs 1.5 0.9 - 3.2 x10(3)/mc L [facility] Monocyte % 11.6 % [facility] Monocyte Abs 1.2(H) 0.3 - 0.9 x10(3)/mc L [facility] Eos % 0.7 % [facility] Eosinophils Abs 0.1 0.0 - 0.4 x10(3)/mc L [facility] Basophil % 0.4 % [facility] Baso Absolute 0.0 0.0 - 0.1 x10(3)/mc L [facility] Immature Gran % 0.30 % [facility] Comment: Immature granulocytes(IG's)percentage and absolute count will include metamyelocytes, myelocytes, and promyelocytes. Blood smears from CBCs yielding IG's will be scanned manually for concordance. If this scan disagrees with the automated IG or if promyelocytes are noted, a manual differential will be performed. Immature Gran Absolute 0.03 0.00 - 0.04 x10(3)/mc L [facility] Blood 11/08/2023 2:27 AM EST 11/08/2023 2:49 AM EST Narrative Resulting Agency Comment Spec In Lab Miguel Arias DO HEMATOLOGY ORDERABLE S Performing Organization Address City/[facility]/[place] [address] * (ABNORMAL) Hemogram (11/08/2023 2:27 AM EST) White Blood Cell 10.0(H) 4.0 - 9.5 x10(3)/mc L [facility] Red Blood Cell 5.00 4.58 - 5.54 x10(6)/mc L [facility] Hemoglobin 15.6 13.7 - 16.5 g/dL [facility] Hematocrit 45.3 40.5 - 48.5 % [facility] Mean Cell Volume 90.6 82.9 - 93.1 fL [facility] Mean Cell Hemoglobin 31.2 27.5 - 32.1 pg [facility] Mean Cell Hemoglobin Concentration 34.4 32.0 - 35.7 g/dL [facility] Platelet 152 145 - 357 x10(3)/mc L [facility] RDW Standard Deviation 42.6 36.0 - 45.0 fL [facility] RDW coefficient of variation 12.9 11.4 - 13.8 % [facility] Mean Platelet Volume 10.6 7.6 - 12.9 fL [facility] NRBC% auto 0.0 % [facility] NRBC Absolute 0.000 0.000 - 0.000 x10(3)/ L [facility] Blood 11/08/2023 2:27 AM EST 11/08/2023 2:49 AM EST Narrative Resulting Agency Comment Spec In Lab Miguel Arias DO HEMATOLOGY ORDERABLE S [facility] [address] * Phosphorus (11/08/2023 2:27 AM EST) Phosphorus 3.2 2.5 - 4.5 mg/dL [facility] Blood 11/08/2023 2:27 AM EST 11/08/2023 2:49 AM EST Narrative Resulting Agency Comment Spec In Lab Barbie Long CHROME TANNER CHEMISTRY ORDERABL ES [facility] [address] * Magnesium (11/08/2023 2:27 AM EST) Magnesium 0.89 0.69 - 1.07 mmol/L [facility] Blood 11/08/2023 2:27 AM EST 11/08/2023 2:49 AM EST Narrative Resulting Agency Comment Spec In Lab Barbie Long HIRAL CHEMISTRY ORDERABL ES [facility] [address] * (ABNORMAL) Basic Metabolic Panel (non-fasting) (11/08/2023 2:27 AM EST) Glucose 229(H) 65 - 199 mg/dL [facility] Comment:Diabetes: >=200 mg/d L plus symptoms Blood Urea Nitrogen 26(H) 10 - 20 mg/dL [facility] Creatinine 0.88 0.80 - 1.50 mg/dL [facility] Sodium 142 135 - 145 mmol/L [facility] Potassium 4.2 3.5 - 5.0 mmol/L [facility] Comment: Please note: ??Patients with WBC >100,000 may have falsely elevated Potassium levels. ??For accurate Potassium quantification in these patients send serum separator tube (gold top) for subsequent determinations. ??Contact the Clinical Chemistry Laboratory if there are any questions. Chloride 107 98 - 107 mmol/L [facility] Carbon Dioxide 23 22 - 31 mmol/L [facility] Anion Gap 12 5 - 15 mmol/L [facility] Calcium 8.8 8.5 - 10.5 mg/dL [facility] Est Glomerular Filtration Rate 86 >=60 mL/min/1. 73 m?? [facility] Comment: This patient's estimated GFR was calculated using the 2020 CKD-EPI equation. The estimated [...] mass and symptoms in addition to eGFR. Blood 11/08/2023 2:27 AM EST 11/08/2023 2:49 AM EST Narrative Resulting Agency Comment Spec In Lab Barbie Reynolds Ethan SOLORION CHEMISTRY ORDERABL ES Performing Organization Address [facility] Co de Phone Number [facility] [address] * (ABNORMAL) POCT Glucose (11/07/2023 8:12 PM EST) Glucose, POC 211(H) 65 - 199 mg/dL [facility] Comment: Supplemental ranges: <140 mg/dL before meals <180 mg/dL all other times of the day Blood 11/07/2023 8:12 PM EST 11/07/2023 8:12 PM EST Galilea Fournier MD POINT OF CARE TEST O RDERAJERRY Performing Organization Address [facility] Co de Phone Number [facility] [address] * (ABNORMAL) POCT Glucose (11/07/2023 5:58 PM EST) Glucose, POC 260(H) 65 - 199 mg/dL [facility] Comment: Supplemental ranges: <140 mg/dL before meals <180 mg/dL all other times of the day Blood 11/07/2023 5:58 PM EST 11/07/2023 5:58 PM EST Galilea Fournier MD POINT OF CARE TEST O RDERABLES Performing Organization Address City/[facility] Co de Phone Number [facility] [address] * (ABNORMAL) POCT Glucose (11/07/2023 12:03 PM EST) Glucose, POC 288(H) 65 - 199 mg/dL [facility] Comment: Supplemental ranges: <140 mg/dL before meals <180 mg/dL all other times of the day Blood 11/07/2023 12:0 3 PM EST 11/07/2023 12:03 PM EST Fernanda Pineda MD POINT OF C[place] [address] * CT Head wo Contrast (Generic) (11/07/2023 11:17 AM EST) Anatomical Region Laterality Modality Head Computed Tomogra phy Impressions 11/07/2023 2:19 PM EST Localized left BRUCE infarct primarily involving the superior frontal gyrus as above without evidence of significant mass effect or hemorrhage. Thank you for letting us participate in the care of this patient. ??If you are a health care provider and have any questions regarding this report, please contact the number below. ??For patients who have questions please contact the health health care attorney that requested your imaging first. ? Electronically signed by: Edson Danielle DO, [facility] ??([phone]), at 11/07/2023 2:19 PM Narrative 11/07/2023 2:19 PM EST EXAMINATION: CT HEAD WO CONTRAST (GENERIC) CLINICAL HISTORY: Stroke, follow up aphasia, f/u s/p tpa TECHNIQUE: CT head performed without intravenous contrast administration. COMPARISON: CT and CTA head 11/06/2023 FINDINGS: Region of hypoattenuation consistent with left BRUCE infarct involving the superior frontal gyrus. There is mild gyral swelling without evidence of significant regional mass effect. There is no accompanying confluent hemorrhage or hematoma. Punctate focus of hyperattenuation within the infarct is noted (image 216, series 3). May reflect small focus of residual arterial thrombus or petechial hemorrhage. Stable encephalomalacia noted along the left frontotemporal convexity. No additional significant interval changes noted. Procedure Note Edson Danielle DO - 11/07/2023 EXAMINATION: CT HEAD WO CONTRAST (GENERIC) CLINICAL HISTORY: Stroke, follow up aphasia, f/u s/p tpa TECHNIQUE: CT head performed without intravenous contrast administration. COMPARISON: CT and CTA head 11/06/2023 FINDINGS: Region of hypoattenuation consistent with left BRUCE infarct involving the superior frontal gyrus. There is mild gyral swelling without evidence of significant regional mass effect. There is no accompanying confluenthemorrhage or hematoma. Punctate focus of hyperattenuation within the infarct isnoted (image 216, series 3). May reflect small focus of residual arterialthrombus or petechial hemorrhage. Stable encephalomalacia noted along the left frontotemporal convexity. No additional significant interval changes noted. IMPRESSION Localized left BRUCE infarct primarily involving the superior frontal gyrusas above without evidence of significant mass effect or hemorrhage. Thank you for letting us participate in the care of this patient. If youare a health care provider and have any questions regarding this report,please contact the number below. For patients who have questions please contactthe health health care attorney that requested your imaging first. Barbie Orr MD IM CT ORDERABLES * POCT Glucose (11/07/2023 8:13 AM EST) [facility] Signature Glucose, POC 178 65 - 199 mg/dL [facility] Comment: Supplemental ranges: <140 mg/dL before meals <180 mg/dL all other times of the day Blood 11/07/2023 8:13 AM EST 11/07/2023 8:13 AM EST Fernanda Pineda MD POINT OF CARE TEST O RDERABLES [facility] [address] * (ABNORMAL) Differential, Automated (11/07/2023 2:30 AM EST) Neutrophil % 71.0 % [facility] Neutrophil Absolute 6.89(H) 1.70 - 6.10 x10(3)/[facility] Lymph % 17.3 % [facility] Lymphocytes Abs 1.7 0.9 - 3.2 x10(3)/[facility] Monocyte % 10.5 % [facility] Monocyte Abs 1.0(H) 0.3 - 0.9 x10(3)/[facility] Eos % 0.5 % [facility] Eosinophils Abs 0.0 0.0 - 0.4 x10(3)/[facility] Basophil % 0.4 % [facility] Baso Absolute 0.0 0.0 - 0.1 x10(3)/[facility] Immature Gran % 0.30 % [facility] Comment: Immature granulocytes(IG's)percentage and absolute count will include metamyelocytes, myelocytes, and promyelocytes. Blood smears from CBCs yielding IG's will be scanned manually for concordance. If this scan disagrees with the automated IG or if promyelocytes are noted, a manual differential will be performed. Immature Gran Absolute 0.03 0.00 - 0.04 x10(3)/[facility] Blood 11/07/2023 2:30 AM EST 11/07/2023 2:45 AM EST Narrative Resulting Agency Comment Spec In Lab Natalie TRIPP HEMATOLOGY ORDERABLE S [facility] [address] * (ABNORMAL) Hemogram (11/07/2023 2:30 AM EST) White Blood Cell 9.7(H) 4.0 - 9.5 x10(3)/[facility] Red Blood Cell 5.12 4.58 - 5.54 x10(6)/[facility] Hemoglobin 15.8 13.7 - 16.5 g/dL [facility] Hematocrit 46.4 40.5 - 48.5 % [facility] Mean Cell Volume 90.6 82.9 - 93.1 fL [facility] Mean Cell Hemoglobin 30.9 27.5 - 32.1 pg [facility] Mean Cell Hemoglobin Concentration 34.1 32.0 - 35.7 g/dL [facility] Platelet 154 145 - 357 x10(3)/mc L [facility] RDW Standard Deviation 42.4 36.0 - 45.0 fL [facility] RDW coefficient of variation 12.8 11.4 - 13.8 % [facility] Mean Platelet Volume 10.5 7.6 - 12.9 fL [facility] NRBC% auto 0.0 % [facility] NRBC Absolute 0.000 0.000 - 0.000 x10(3)/mc L [facility] Blood 11/07/2023 2:30 AM EST 11/07/2023 2:45 AM EST Narrative Resulting Agency Comment Spec In Lab Natalie TRIPP HEMATOLOGY ORDERABLE S Performing Organization Address City/[facility]/ZIP Co de Phone Number [facility] [address] * Phosphorus (11/07/2023 2:30 AM EST) Phosphorus 2.9 2.5 - 4.5 mg/dL [facility] Blood 11/07/2023 2:30 AM EST 11/07/2023 2:45 AM EST Narrative Resulting Agency Comment Spec In Lab Barbie Long APRN CHEMISTRY ORDERABL ES Performing Organization Address City/[facility]/ZIP Co de Phone Number [facility] [address] * Magnesium (11/07/2023 2:30 AM EST) Magnesium 0.94 0.69 - 1.07 mmol/L [facility] Blood 11/07/2023 2:30 AM EST 11/07/2023 2:45 AM EST Narrative Resulting Agency Comment Spec In Lab Barbie Long CHROME TANNER CHEMISTRY ORDERABL ES Performing Organization Address [facility] Co de Phone Number [facility] [address] * (ABNORMAL) Basic Metabolic Panel (non-fasting) (11/07/2023 2:30 AM EST) Glucose 164 65 - 199 mg/dL [facility] Comment:Diabetes: >=200 mg/d L plus symptoms Blood Urea Nitrogen 19 10 - 20 mg/dL [facility] Creatinine 0.79(L) 0.80 - 1.50 mg/dL [facility] Sodium 138 135 - 145 mmol/L [facility] Potassium 3.9 3.5 - 5.0 mmol/L [facility] Comment: Please note: ??Patients with WBC >100,000 may have falsely elevated Potassium levels. ??For accurate Potassium quantification in these patients send serum separator tube (gold top) for subsequent determinations. ??Contact the Clinical Chemistry Laboratory if there are any questions. Chloride 102 98 - 107 mmol/L [facility] Carbon Dioxide 24 22 - 31 mmol/L [facility] Anion Gap 12 5 - 15 mmol/L [facility] Calcium 9.0 8.5 - 10.5 mg/dL [facility] Est Glomerular Filtration Rate 89 >=60 mL/min/1. 73 m?? [facility] Comment: This patient's estimated GFR was calculated using the 2020 CKD-EPI equation. The estimated [...] mass and symptoms in addition to eGFR. Blood 11/07/2023 2:30 AM EST 11/07/2023 2:45 AM EST Narrative Resulting Agency Comment Spec In Lab Barbie Long CHROME TANNER CHEMISTRY ORDERABL ES Performing Organization Address City/[facility]/ZIP Co de Phone Number [place] [address] * MRI Brain wo Contrast (11/06/2023 10:08 PM EST) Anatomical Region Laterality Modality Head Magnetic Resonan ce Impressions 11/07/2023 4:14 AM EST 1. ??Acute infarct in the left superior frontal gyrus, compatible with a left BRUCE territory infarct. No associated hemorrhage 2. ??Additional punctate foci of restricted diffusion, in the right precentral gyrus, bilateral lateral inferior frontal gyri and left centrum semiovale, compatible with punctate embolic infarcts. 3. ??No evidence of associated hemorrhagic conversion. Thank you for letting us participate in the care of this patient. ??If you are a health care provider and have any questions regarding this report, please contact the number below. ??For patients who have questions please contact the health health care attorney that requested your imaging first. ? Narrative 11/07/2023 4:14 AM EST EXAMINATION: MRI BRAIN WO CONTRAST CLINICAL HISTORY: Stroke, follow up; L BRUCE occlusion, aphasia TECHNIQUE: MRI of the brain performed without intravenous contrast administration. COMPARISON: CT head and CT of the head and neck, November 06, 2023 FINDINGS: Restricted diffusion in the left paramedial frontal lobe involving the superior frontal gyrus compatible with acute infarct involving the left BRUCE and corresponding to the left A3 /A4 junction pericallosal occlusion, identified on comparison CTA. Additional punctate foci of restricted diffusion at the left centrum semiovale, at the cortex of the left lateral inferior frontal gyrus, small focus along the right precentral gyrus and right lateral inferior frontal gyrus, likely embolic in etiology. No associated hemorrhage. No extra-axial collections. Patchy periventricular and subcortical T2 FLAIR hyperintensities are most compatible with sequela of chronic small vessel ischemic changes. Encephalomalacia in the left frontal and anterior temporal lobe is noted and may represent sequela of prior infarct or trauma. Diffuse atrophy with prominence of the extra-axial spaces and ex vacuo dilation of the ventricles. Basal cisterns are patent. Bone marrow signal is normal. No extracalvarial abnormality. Procedure Note Ellyn Berg MD - 11/07/2023 EXAMINATION: MRI BRAIN WO CONTRAST CLINICAL HISTORY: Stroke, follow up; L BRUCE occlusion, aphasia TECHNIQUE: MRI of the brain performed without intravenous contrast administration. COMPARISON: CT head and CT of the head and neck, November 06, 2023 FINDINGS: Restricted diffusion in the left paramedial frontal lobe involving thesuperior frontal gyrus compatible with acute infarct involving the left BRUCE and corresponding to the left A3 /A4 junction pericallosal occlusion,identified on comparison CTA. Additional punctate foci of restricted diffusion at theleft centrum semiovale, at the cortex of the left lateral inferior frontalgyrus, small focus along the right precentral gyrus and right lateral inferiorfrontal gyrus, likely embolic in etiology. No associated hemorrhage. Noextra-axial collections. Patchy periventricular and subcortical T2 FLAIRhyperintensities are most compatible with sequela of chronic small vessel ischemicchanges. Encephalomalacia in the left frontal and anterior temporal lobe is notedand may represent sequela of prior infarct or trauma. Diffuse atrophy withprominence of the extra-axial spaces and ex vacuo dilation of the ventricles. Basalcisterns are patent. Bone marrow signal is normal. No extracalvarial abnormality. IMPRESSION 1. Acute infarct in the left superior frontal gyrus, compatible with aleft BRUCE territory infarct. No associated hemorrhage 2. Additional punctate foci of restricted diffusion, in the rightprecentral gyrus, bilateral lateral inferior frontal gyri and left centrumsemiovale, compatible with punctate embolic infarcts. 3. No evidence of associated hemorrhagic conversion. Thank you for letting us participate in the care of this patient. If youare a health care provider and have any questions regarding this report,please contact the number below. For patients who have questions please contactthe health health care attorney that requested your imaging first. Barbie Orr MD IM MRI ORDERABLES * (ABNORMAL) POCT Glucose (11/06/2023 8:58 PM EST) Glucose, POC 219(H) 65 - 199 mg/dL [facility] Comment: Supplemental ranges: <140 mg/dL before meals <180 mg/dL all other times of the day Blood 11/06/2023 8:58 PM EST 11/06/2023 8:58 PM EST Fernanda Pineda MD POINT OF CARE TEST O RDERAJERRY Performing Organization Address City/[facility]/ZIP Co de Phone Number [facility] [place] [address] * (ABNORMAL) POCT Glucose (11/06/2023 4:27 PM EST) Glucose, POC 229(H) 65 - 199 mg/dL [facility] Comment: Supplemental ranges: <140 mg/dL before meals <180 mg/dL all other times of the day Blood 11/06/2023 4:27 PM EST 11/06/2023 4:27 PM EST Fernanda Pineda MD POINT OF CARE TEST O RADHA Performing Organization Address City/[facility]/ZIP Co de Phone Number [facility] [place] [address] * ECHO COMPLETE (11/06/2023 3:57 PM EST) EF 40 HEARTLAB SYSTEM Anatomical Region Laterality Modality Cardiac Other 11/06/2023 3:19 PM EST Narrative 11/06/2023 4:19 PM EST 1 [place] [address] ? Echocardiogram Report Name: KOKO ZAMORA ?Study Date: 11/06/2023 03:19 PMBP: 134/81 mmHg ? Patient Location: [facility] 0340 A : 1940 ? Height: 168 cm ? Account: [id number] Age: 83 yrs ? Weight: 73 kg Gender: Male ?BSA: 1.8 m2 Ordering Physician: FERNANDA PINEDA Referring Physician: UNKNOWN Performed By: Shahram Rojas RDCS Reason For Study: Cerebrovascular accident (CVA), unspecified mechanism Exam Location: [facility]. Interpretation Summary Mildly to moderately reduced left ventricular systolic function. LVEF 40-45%. 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 The rhythm is atrial fibrillation. Left Ventricle Left ventricle is of normal size. Wall thickness is mildly increased. There is no left ventricular outflow tract obstruction. There is no ventricular septal defect. Left ventricular systolic function is moderately reduced. The left ventricular ejection fraction is 46% by Gaxiola's biplane. Left ventricular ejection fraction is estimated visually at 45-50% with beat to beat variability. Mild global hypokinesis. Right Ventricle The right ventricle is of normal size. Right ventricular systolic function is normal. Left Atrium The left atrium is severely dilated. There is no evidence for a patent foramen ovale. Right Atrium The right atrium is severely dilated. Aortic Valve The aortic valve is probably trileaflet. The aortic valve is mildly thickened. There is calcification of the aortic annulus. There is moderate aortic stenosis. The peak instantaneous gradient across the aortic valve is 24.4 mmHg. The mean gradient across the aortic valve is 16.3 mmHg. The aortic valve area calculated using the continuity equation is 1.2 cm^2. Zva 4.1. There is mild aortic regurgitation. Mitral Valve The mitral valve leaflets are thickened. surgical mitral valve repair present. There is mild mitral stenosis. The estimated mean gradient across the mitral valve is 5.1 mmHg . Heart rate: 87 beats per minute. There is trace mitral regurgitation. Tricuspid Valve There is mild thickening of the tricuspid leaflets. There is no tricuspid stenosis. There is mild tricuspid regurgitation. Pulmonic Valve The pulmonic valve is not well visualized. There is trace pulmonic valve regurgitation. Great Arteries The diameter at the level of the sinuses of Valsalva is 4.0 cm. The aortic root is dilated. The maximum diameter of the proximal ascending aorta is 4.0 cm. Venous Inferior vena cava is normal in size. Inferior vena cava collapse greater than 50% with respiration. Pericardium/Pleural The pericardium appears normal. Hemodynamics Pulmonary artery hypertension could not be assessed due to inadequate tricuspid regurgitation jet. The estimated right atrial pressure is 3mmHg. Left ventricular diastolic function is indeterminate. Left ventricular filling pressure is indeterminate. Ejection Fraction ?2D Measurements ? Volumes EF(MOD-bp): 46.1 % ?IVSd: 1.2 cm ? LAV(MOD- bp) Indexed: ?LVIDd: 4.6 cm ?LVIDs: 3.1 cm ?53.8 ml/m2 ?LVPWd: 1.2 cm ?RA A4Cs_phl: 32.7 cm2 ? EDV(MOD-bp) Indexed: ?LV mass(C)d: 196.4 grams ?LV mass(C)dI: 107.5 grams/m2 ?? 56.7 ml/m2 ?Ao root diam: 4.0 cm ? ESV(MOD-bp) Indexed: ?Ao root diam index: 2.2 ?30.6 ml/m2 ?asc Aorta Diam: 3.9 cm ? SV(LVOT): 66.1 ml ?LVOT diam: 2.3 cm ?TAPSE_phl: 1.3 cm ?SI(LVOT): 36.2 ml/m2 Doppler LV V1 VTI: 15.4 cm Ao V2 VTI: 53.0 cm Ao Max: 246.3 cm/sec Ao valve max: 24.4 mmHg Ao valve mean: 16.3 mmHg MV mean P.1 mmHg JUVENAL(I,D): 1.2 cm2 Dimensionless index Aov: 0.29 I ?WMSI = 2.00 ? % Normal = 0 ?Segments ??Size X - Cannot ?? 1 - Normal ?? 2 - ? 3 - Akinetic 4 - ?1-2 ? small Interpret ? Hypokinetic ?Dyskinetic ?? 3-5 ? moderate 5 - ? 6-14 ?large Aneurysmal ?15-16 ?? diffuse Procedure Note Marcelino Padron MD - 11/06/2023 1 [place] [address] Echocardiogram Report Name: KOKO ZAMORA Study Date: 303:19 PMBP: 134/81 mmHg Patient Location: [id number] A : 1940 Height: 168 cm Account: [id number] Age: 83 yrs Weight: 73 kg Gender: Male BSA: 1.8 m2 Ordering Physician: FERNANDA PINEDA Referring Physician: UNKNOWN Performed By: Shahram Rojas RDCS Reason For Study: Cerebrovascular accident (CVA), unspecified mechanism Exam Location: [facility]. Interpretation Summary Mildly to moderately reduced left ventricular systolic function. [id number]%. 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 The rhythm is atrial fibrillation. Left Ventricle Left ventricle is of normal size. Wall thickness is mildly increased.There is no left ventricular outflow tract obstruction. There is no ventricular septaldefect. Left ventricular systolic function is moderately reduced. The leftventricular ejection fraction is 46% by Gaxiola's biplane. Left ventricular ejectionfraction is estimated visually at 45-50% with beat to beat variability. Mildglobal hypokinesis. Right Ventricle The right ventricle is of normal size. Right ventricular systolic functionis normal. Left Atrium The left atrium is severely dilated. There is no evidence for a patentforamen ovale. Right Atrium The right atrium is severely dilated. Aortic Valve The aortic valve is probably trileaflet. The aortic valve is mildlythickened. There is calcification of the aortic annulus. There is moderate aorticstenosis. The peak instantaneous gradient across the aortic valve is 24.4 mmHg. Themean gradient across the aortic valve is 16.3 mmHg. The aortic valve areacalculated using the continuity equation is 1.2 cm^2. Zva 4.1. There is mild aortic regurgitation. Mitral Valve The mitral valve leaflets are thickened. surgical mitral valve repairpresent. There is mild mitral stenosis. The estimated mean gradient across themitral valve is 5.1 mmHg . Heart rate: 87 beats per minute. There is trace mitral regurgitation. Tricuspid Valve There is mild thickening of the tricuspid leaflets. There is notricuspid stenosis. There is mild tricuspid regurgitation. Pulmonic Valve The pulmonic valve is not well visualized. There is trace pulmonic valve regurgitation. Great Arteries The diameter at the level of the sinuses of Valsalva is 4.0 cm. The aorticroot is dilated. The maximum diameter of the proximal ascending aorta is 4.0 cm. Venous Inferior vena cava is normal in size. Inferior vena cava collapse greaterthan 50% with respiration. Pericardium/Pleural The pericardium appears normal. Hemodynamics Pulmonary artery hypertension could not be assessed due to inadequatetricuspid regurgitation jet. The estimated right atrial pressure is 3mmHg. Leftventricular diastolic function is indeterminate. Left ventricular filling pressureis indeterminate. Ejection Fraction 2D Measurements Volumes EF(MOD-bp): 46.1 % IVSd: 1.2 cm LAV(MOD-bp)Indexed: LVIDd: 4.6 cm LVIDs: 3.1 cm 53.8 ml/m2 LVPWd: 1.2 cm RA A4Cs_phl: 32.7cm2 EDV(MOD-bp)Indexed: LV mass(C)d: 196.4 grams LV mass(C)dI: 107.5 grams/m2 56.7 ml/m2 Ao root diam: 4.0 cm ESV(MOD-bp)Indexed: Ao root diam index: 2.2 30.6 ml/m2 asc Aorta Diam: 3.9 cm SV(LVOT): 66.1ml LVOT diam: 2.3 cm TAPSE_phl: 1.3 cm SI(LVOT): 36.2ml/m2 Doppler LV V1 VTI: 15.4 cm Ao V2 VTI: 53.0 cm Ao Max: 246.3 cm/sec Ao valve max: 24.4 mmHg Ao valve mean: 16.3 mmHg MV mean P.1 mmHg JUVENAL(I,D): 1.2 cm2 Dimensionless index Aov: 0.29 I WMSI = 2.00 % Normal = 0 SegmentsSize X - Cannot 1 - Normal 2 - 3 - Akinetic 4 - 1-2small Interpret Hypokinetic Dyskinetic 3-5moderate 5 - 6-14large Aneurysmal 15-16diffuse Fernanda Pineda MD ECHO ORDERABLES * (ABNORMAL) POCT Glucose (11/06/2023 2:55 PM EST) Glucose, POC 212(H) 65 - 199 mg/dL [facility] Comment: Supplemental ranges: <140 mg/dL before meals <180 mg/dL all other times of the day Blood 11/06/2023 2:55 PM EST 11/06/2023 2:55 PM EST Fernanda Pineda MD POINT OF CARE TEST O RDERABLES Performing Organization Address City/State/[facility] Co de Phone Number [facility] [place] [phone] * XR Knee 1-2 Views Right (Generic) (11/06/2023 11:54 AM EST) Anatomical Region Laterality Modality Knee Right Digital Radiogra phy Impressions 11/06/2023 11:57 AM EST 1. 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 2. ??Small effusion without lipohemarthrosis 3. ??No acute fractures seen. Thank you for letting us participate in the care of this patient. ??If you are a health care provider and have any questions regarding this report, please contact the number below. ??For patients who have questions please contact the health health care attorney that requested your imaging first. ? Electronically signed by: Shannen Sánchez MD, [facility] ([phone]), at 11/06/2023 11:57 AM Narrative 11/06/2023 11:57 AM EST EXAMINATION: XR KNEE 1-2 VIEWS RIGHT (GENERIC) CLINICAL HISTORY: s/p fall onto R knee w/ overlying ecchymosis, , entered by ordering service TECHNIQUE: RIGHT knee, 2 view[s] COMPARISON: none FINDINGS: Bones No acute fracture or periostitis. Joints Knee joint-small osteophytic lipping. Subchondral cysts at medial compartment. Small to moderate size knee effusion Soft Tissue Diffuse atherosclerotic posterior vascular calcifications. Procedure Note Shannen Sánchez MD - 11/06/2023 EXAMINATION: XR KNEE 1-2 VIEWS RIGHT (GENERIC) CLINICAL HISTORY: s/p fall onto R knee w/ overlying ecchymosis, ,entered by ordering service TECHNIQUE: RIGHT knee, 2 view[s] COMPARISON: none FINDINGS: Bones No acute fracture or periostitis. Joints Knee joint-small osteophytic lipping. Subchondral cysts at medialcompartment. Small to moderate size knee effusion Soft Tissue Diffuse atherosclerotic posterior vascular calcifications. IMPRESSION 1. Osteoarthropathy of RIGHT knee with subchondral cysts andosteophytes. 2. Small effusion without lipohemarthrosis 3. No acute fractures seen. Thank you for letting us participate in the care of this patient. If youare a health care provider and have any questions regarding this report,please contact the number below. For patients who have questions please contactthe health health care attorney that requested your imaging first. Barbie Orr MD IMG DX ORDERABLES * XR Wrist 3 Views Right (11/06/2023 11:54 AM EST) Anatomical Region Laterality Modality Right Digital Radiogra phy Impressions 11/06/2023 12:00 PM EST 1. ??No acute fracture. 2. ??Normal osseous alignment 3. ??No elbow effusion. Thank you for letting us participate in the care of this patient. ??If you are a health care provider and have any questions regarding this report, please contact the number below. ??For patients who have questions please contact the health health care attorney that requested your imaging first. ? Electronically signed by: Shannen Sánchez MD, [facility] ([phone]), at 11/06/2023 12:00 PM Narrative 11/06/2023 12:00 PM EST EXAMINATION: XR WRIST 3 VIEWS RIGHT, XR ELBOW 3 VIEWS RIGHT (GENERIC) CLINICAL HISTORY: s/p fall w/ hand pain, , entered by ordering service TECHNIQUE: 3 view[s] RIGHT wrist, 3 views RIGHT elbow, 3 views COMPARISON: none FINDINGS: Bones No acute fracture or periostitis. Joints Radiocarpal and distal radioulnar joint-congruent scaphoid trapezial trapezoid [STT] -eccentric narrowed joint space with osteophytes and subchondral sclerosis. Elbow joint- Normal elbow alignment. No effusion. Soft Tissue Chondrocalcinosis at TFC or ??atherosclerotic volar vascular calcifications. IV catheter placed in antecubital fossa. Procedure Note Shannen Sánchez MD - 11/06/2023 EXAMINATION: XR WRIST 3 VIEWS RIGHT, XR ELBOW 3 VIEWS RIGHT (GENERIC) CLINICAL HISTORY: s/p fall w/ hand pain, , entered by orderingservice TECHNIQUE: 3 view[s] RIGHT wrist, 3 views RIGHT elbow, 3 views COMPARISON: none FINDINGS: Bones No acute fracture or periostitis. Joints Radiocarpal and distal radioulnar joint-congruent scaphoid trapezial trapezoid [STT] -eccentric narrowed joint space with osteophytes and subchondral sclerosis. Elbow joint- Normal elbow alignment. No effusion. Soft Tissue Chondrocalcinosis at [facility] or atherosclerotic volar vascularcalcifications. IV catheter placed in antecubital fossa. IMPRESSION 1. No acute fracture. 2. Normal osseous alignment 3. No elbow effusion. Thank you for letting us participate in the care of this patient. If youare a health care provider and have any questions regarding this report,please contact the number below. For patients who have questions please contactthe health health care attorney that requested your imaging first. Barbie Orr MD IMG DX ORDERABLES * XR Elbow 3 Views Right (GENERIC) (11/06/2023 11:54 AM EST) Anatomical Region Laterality Modality Elbow Right Digital Radiogra phy Impressions 11/06/2023 12:00 PM EST 1. ??No acute fracture. 2. ??Normal osseous alignment 3. ??No elbow effusion. Thank you for letting us participate in the care of this patient. ??If you are a health care provider and have any questions regarding this report, please contact the number below. ??For patients who have questions please contact the health health care attorney that requested your imaging first. ? Electronically signed by: Shannen Sánchez MD, [facility] ([phone]), at 11/06/2023 12:00 PM Narrative 11/06/2023 12:00 PM EST EXAMINATION: XR WRIST 3 VIEWS RIGHT, XR ELBOW 3 VIEWS RIGHT (GENERIC) CLINICAL HISTORY: s/p fall w/ hand pain, , entered by ordering service TECHNIQUE: 3 view[s] RIGHT wrist, 3 views RIGHT elbow, 3 views COMPARISON: none FINDINGS: Bones No acute fracture or periostitis. Joints Radiocarpal and distal radioulnar joint-congruent scaphoid trapezial trapezoid [STT] -eccentric narrowed joint space with osteophytes and subchondral sclerosis. Elbow joint- Normal elbow alignment. No effusion. Soft Tissue Chondrocalcinosis at TFC or ??atherosclerotic volar vascular calcifications. IV catheter placed in antecubital fossa. Procedure Note Shannen Sánchez MD - 11/06/2023 EXAMINATION: XR WRIST 3 VIEWS RIGHT, XR ELBOW 3 VIEWS RIGHT (GENERIC) CLINICAL HISTORY: s/p fall w/ hand pain, , entered by orderingservice TECHNIQUE: 3 view[s] RIGHT wrist, 3 views RIGHT elbow, 3 views COMPARISON: none FINDINGS: Bones No acute fracture or periostitis. Joints Radiocarpal and distal radioulnar joint-congruent scaphoid trapezial trapezoid [STT] -eccentric narrowed joint space with osteophytes and subchondral sclerosis. Elbow joint- Normal elbow alignment. No effusion. Soft Tissue Chondrocalcinosis at TFC or atherosclerotic volar vascularcalcifications. IV catheter placed in antecubital fossa. IMPRESSION 1. No acute fracture. 2. Normal osseous alignment 3. No elbow effusion. Thank you for letting us participate in the care of this patient. If youare a health care provider and have any questions regarding this report,please contact the number below. For patients who have questions please contactthe health health care attorney that requested your imaging first. Barbie Orr MD IMG DX ORDERABLES * XR Shoulder Right (Generic) (11/06/2023 11:54 AM EST) Anatomical Region Laterality Modality Shoulder Right Digital Radiogra phy Impressions 11/06/2023 12:02 PM EST No acute fracture or dislocation Thank you for letting us participate in the care of this patient. ??If you are a health care provider and have any questions regarding this report, please contact the number below. ??For patients who have questions please contact the health health care attorney that requested your imaging first. ? Electronically signed by: Shannen Sánchez MD, [facility] ([phone]), at 11/06/2023 12:02 PM Narrative 11/06/2023 12:02 PM EST EXAMINATION: XR SHOULDER RIGHT (GENERIC) CLINICAL HISTORY: s/p fall onto R shoulder w/ pain, , entered by ordering service TECHNIQUE: 4 views RIGHT shoulder COMPARISON: None FINDINGS: Bones: No acute fracture or periostitis. AC Joint: Normal AC joint alignment with small osteophytes No os acromiale. Glenohumeral joint: ?? Small osteophytes. Normal alignment Soft tissue: periarticular calcifications- none No opacity seen following brief survey of the soft tissues including lung parenchyma. Procedure Note Shannen Sánchez MD - 11/06/2023 EXAMINATION: XR SHOULDER RIGHT (GENERIC) CLINICAL HISTORY: s/p fall onto R shoulder w/ pain, , entered byordering service TECHNIQUE: 4 views RIGHT shoulder COMPARISON: None FINDINGS: Bones: No acute fracture or periostitis. AC Joint: Normal AC joint alignment with small osteophytes No os acromiale. Glenohumeral joint: Small osteophytes. Normal alignment Soft tissue: periarticular calcifications- none No opacity seen following brief survey of the soft tissues includinglung parenchyma. IMPRESSION No acute fracture or dislocation Thank you for letting us participate in the care of this patient. If youare a health care provider and have any questions regarding this report,please contact the number below. For patients who have questions please contactthe health health care attorney that requested your imaging first. Barbie Orr MD IMG DX ORDERABLES * CT Lumbar Spine Reconstruction (11/06/2023 10:40 AM EST) Anatomical Region Laterality Modality L-spine Computed Tomogra phy Impressions 11/06/2023 11:29 AM EST 1. ??No acute fracture or malalignment. 2. ??Diffuse osseous demineralization and multilevel degenerative changes throughout the spine as described. I have personally reviewed the image(s) and the resident's interpretation and agree with the findings, Edson Danielle DO at 11/06/2023 11:29 AM Thank you for letting us participate in the care of this patient. ??If you are a health care provider and have any questions regarding this report, please contact the number below. ??For patients who have questions please contact the health health care attorney that requested your imaging first. ? Electronically signed by: Edson Danielle DO, [facility] ??([phone]), at 11/06/2023 11:29 AM Narrative 11/06/2023 11:29 AM EST EXAMINATION: CT CERVICAL SPINE RECONSTRUCTION, CT LUMBAR SPINE RECONSTRUCTION, CT THORACIC SPINE RECONSTRUCTION CLINICAL HISTORY: fall, stroke alert TECHNIQUE: Dedicated reconstructions were created of the cervical, thoracic, and lumbar spine utilizing a bone algorithm. COMPARISON: CT abdomen and pelvis 05/31/2022, thoracic spine MRI 09/06/2020 FINDINGS: CERVICAL SPINE Diffuse osseous demineralization. There is no acute fracture. Vertebral bodies are maintained in height. ?? Alignment is unremarkable. The craniocervical and atlantoaxial relationships are preserved. Multilevel degenerative changes of the cervical spine with endplate osteophyte formation and loss of disc height. No significant osseous spinal canal stenosis. No perivertebral soft tissue swelling. No visualized apical lung masses or consolidation. THORACIC SPINE Diffuse osseous demineralization. There is no acute fracture. Remote T9 compression deformity status post vertebroplasty. Similar mild accompanying spinal stenosis. Multilevel degenerative changes of the thoracic spine with endplate osteophyte formation and vacuum disc phenomenon. Additional mild loss of height of the T3 and T7 vertebral bodies noted, unchanged. Alignment is normal. No additional significant osseous spinal canal stenosis. LUMBAR SPINE Diffuse osseous demineralization. 5 nonrib-bearing vertebrae are present in the lumbar spine. No acute fracture or traumatic subluxation noted. Remote compression deformity of L1 status post vertebroplasty. Compression deformity of L4, present since at least 2021. No acute fractures. Multilevel degenerative changes of the lumbar spine demonstrated by endplate osteophyte formation and vacuum disc phenomenon. Calcified atherosclerotic plaque over the visualized aorta. Procedure Note Edson Danielle, DO - 11/06/2023 EXAMINATION: CT CERVICAL SPINE RECONSTRUCTION, CT LUMBAR SPINERECONSTRUCTION, CT THORACIC SPINE RECONSTRUCTION CLINICAL HISTORY: fall, stroke alert TECHNIQUE: Dedicated reconstructions were created of the cervical, thoracic, andlumbar spine utilizing a bone algorithm. COMPARISON: CT abdomen and pelvis 05/31/2022, thoracic spine MRI 09/06/2020 FINDINGS: CERVICAL SPINE Diffuse osseous demineralization. There is no acute fracture. Vertebral bodies are maintained in height. Alignment is unremarkable. The craniocervical and atlantoaxialrelationships are preserved. Multilevel degenerative changes of the cervical spine with endplateosteophyte formation and loss of disc height. No significant osseous spinal canalstenosis. No perivertebral soft tissue swelling. No visualized apical lung masses or consolidation. THORACIC SPINE Diffuse osseous demineralization. There is no acute fracture. Remote T9 compression deformity status post vertebroplasty. Similar mild accompanying spinal stenosis. Multilevel degenerative changes of thethoracic spine with endplate osteophyte formation and vacuum disc phenomenon.Additional mild loss of height of the T3 and T7 vertebral bodies noted, unchanged. Alignment is normal. No additional significant osseous spinal canalstenosis. LUMBAR SPINE Diffuse osseous demineralization. 5 nonrib-bearing vertebrae are present in the lumbar spine. No acute fracture or traumatic subluxation noted. Remote compression deformity of L1 status post vertebroplasty.Compression deformity of L4, present since at least 2021. No acute fractures. Multilevel degenerative changes of the lumbar spine demonstrated byendplate osteophyte formation and vacuum disc phenomenon. Calcified atherosclerotic plaque over the visualized aorta. IMPRESSION 1. No acute fracture or malalignment. 2. Diffuse osseous demineralization and multilevel degenerative changes throughout the spine as described. I have personally reviewed the image(s) and the resident's interpretationand agree with the findings, Edson Danielle DO at 11/06/2023 11:29 AM Thank you for letting us participate in the care of this patient. If youare a health care provider and have any questions regarding this report,please contact the number below. For patients who have questions please contactthe health health care attorney that requested your imaging first. Felix Gonzalez MD IMG CT ORDERABLES * CT Thoracic Spine Reconstruction (11/06/2023 10:40 AM EST) Anatomical Region Laterality Modality T-spine Computed Tomogra phy Impressions 11/06/2023 11:29 AM EST 1. ??No acute fracture or malalignment. 2. ??Diffuse osseous demineralization and multilevel degenerative changes throughout the spine as described. I have personally reviewed the image(s) and the resident's interpretation and agree with the findings, Edson Danielle DO at 11/06/2023 11:29 AM Thank you for letting us participate in the care of this patient. ??If you are a health care provider and have any questions regarding this report, please contact the number below. ??For patients who have questions please contact the health health care attorney that requested your imaging first. ? Electronically signed by: Edosn Danielle DO [facility] ??([phone]), at 11/06/2023 11:29 AM Narrative 11/06/2023 11:29 AM EST EXAMINATION: CT CERVICAL SPINE RECONSTRUCTION, CT LUMBAR SPINE RECONSTRUCTION, CT THORACIC SPINE RECONSTRUCTION CLINICAL HISTORY: fall, stroke alert TECHNIQUE: Dedicated reconstructions were created of the cervical, thoracic, and lumbar spine utilizing a bone algorithm. COMPARISON: CT abdomen and pelvis 05/31/2022, thoracic spine MRI 09/06/2020 FINDINGS: CERVICAL SPINE Diffuse osseous demineralization. There is no acute fracture. Vertebral bodies are maintained in height. ?? Alignment is unremarkable. The craniocervical and atlantoaxial relationships are preserved. Multilevel degenerative changes of the cervical spine with endplate osteophyte formation and loss of disc height. No significant osseous spinal canal stenosis. No perivertebral soft tissue swelling. No visualized apical lung masses or consolidation. THORACIC SPINE Diffuse osseous demineralization. There is no acute fracture. Remote T9 compression deformity status post vertebroplasty. Similar mild accompanying spinal stenosis. Multilevel degenerative changes of the thoracic spine with endplate osteophyte formation and vacuum disc phenomenon. Additional mild loss of height of the T3 and T7 vertebral bodies noted, unchanged. Alignment is normal. No additional significant osseous spinal canal stenosis. LUMBAR SPINE Diffuse osseous demineralization. 5 nonrib-bearing vertebrae are present in the lumbar spine. No acute fracture or traumatic subluxation noted. Remote compression deformity of L1 status post vertebroplasty. Compression deformity of L4, present since at least 2021. No acute fractures. Multilevel degenerative changes of the lumbar spine demonstrated by endplate osteophyte formation and vacuum disc phenomenon. Calcified atherosclerotic plaque over the visualized aorta. Procedure Note Edson Danielle, DO - 11/06/2023 EXAMINATION: CT CERVICAL SPINE RECONSTRUCTION, CT LUMBAR SPINERECONSTRUCTION, CT THORACIC SPINE RECONSTRUCTION CLINICAL HISTORY: fall, stroke alert TECHNIQUE: Dedicated reconstructions were created of the cervical, thoracic, andlumbar spine utilizing a bone algorithm. COMPARISON: CT abdomen and pelvis 05/31/2022, thoracic spine MRI 09/06/2020 FINDINGS: CERVICAL SPINE Diffuse osseous demineralization. There is no acute fracture. Vertebral bodies are maintained in height. Alignment is unremarkable. The craniocervical and atlantoaxialrelationships are preserved. Multilevel degenerative changes of the cervical spine with endplateosteophyte formation and loss of disc height. No significant osseous spinal canalstenosis. No perivertebral soft tissue swelling. No visualized apical lung masses or consolidation. THORACIC SPINE Diffuse osseous demineralization. There is no acute fracture. Remote T9 compression deformity status post vertebroplasty. Similar mild accompanying spinal stenosis. Multilevel degenerative changes of thethoracic spine with endplate osteophyte formation and vacuum disc phenomenon.Additional mild loss of height of the T3 and T7 vertebral bodies noted, unchanged. Alignment is normal. No additional significant osseous spinal canalstenosis. LUMBAR SPINE Diffuse osseous demineralization. 5 nonrib-bearing vertebrae are present in the lumbar spine. No acute fracture or traumatic subluxation noted. Remote compression deformity of L1 status post vertebroplasty.Compression deformity of L4, present since at least 2021. No acute fractures. Multilevel degenerative changes of the lumbar spine demonstrated byendplate osteophyte formation and vacuum disc phenomenon. Calcified atherosclerotic plaque over the visualized aorta. IMPRESSION 1. No acute fracture or malalignment. 2. Diffuse osseous demineralization and multilevel degenerative changes throughout the spine as described. I have personally reviewed the image(s) and the resident's interpretationand agree with the findings, Edson Danielle DO at 11/06/2023 11:29 AM Thank you for letting us participate in the care of this patient. If youare a health care provider and have any questions regarding this report,please contact the number below. For patients who have questions please contactthe health health care attorney that requested your imaging first. Felix Gonzalez MD IMG CT ORDERABLES * CT Chest Abdomen Pelvis w Contrast (Generic) (11/06/2023 10:40 AM EST) Anatomical Region Laterality Modality Abdomen, Pelvis Computed Tomogra phy Impressions 11/06/2023 11:01 AM EST No evidence of acute thoracic or abdominal pathology. Thank you for letting us participate in the care of this patient. ??If you are a health care provider and have any questions regarding this report, please contact the number below. ??For patients who have questions please contact the health health care attorney that requested your imaging first. ? Narrative 11/06/2023 11:01 AM EST EXAMINATION: CT CHEST ABDOMEN PELVIS W CONTRAST (GENERIC) CLINICAL HISTORY: Fall from standing on anticoagulation. TECHNIQUE: Helical CT of the chest, abdomen, and pelvis following the intravenous administration of contrast. 69 cc Omnipaque 350 IV contrast. Oral contrast was not administered. COMPARISON: CT AP from 05/31/2022 FINDINGS: Chest: Lungs and large airways: Slightly limited evaluation due to motion artifact. Bibasilar mild atelectasis with no focal lung consolidation. The central airways are patent. Pleura: No effusion or pneumothorax. Heart/vasculature: Normal heart size with diffuse coronary artery calcification and postsurgical changes. No pericardial effusion. No aortic aneurysm. No central pulmonary arterial filling defect. Lymph nodes: No enlarged lymph nodes. Mediastinum and markell: No mass, fluid or pneumomediastinum. Abdomen/pelvis: Liver: Normal size and attenuation without lesions. Bile ducts: Nondilated. Gallbladder: No calcified gallstones. Normal caliber wall. Pancreas: Normal attenuation without ductal dilatation. Spleen: Normal. Adrenals: Normal. Kidneys: Symmetric enhancement without hydronephrosis. Left upper pole cyst versus focal infarct. Right upper pole exophytic simple cyst. Urinary Bladder: Normal. Vasculature: No acute hemorrhage. No aortic aneurysm. Diffuse calcified plaque. Lymph Nodes: No enlarged lymph nodes. Bowel: Nondilated, no wall thickening. ?? Peritoneum and retroperitoneum: No free fluid or loculated fluid collection. No pneumoperitoneum. Abdominal wall: No acute findings. Reproductive organs: Mild prostatic enlargement with coarse calcifications and fiducial markers. Osseous structures: No acute fracture or suspicious osseous lesion. Unchanged thoracolumbar spine compression fractures L1 and T9 vertebroplasty's. Sclerosis of the bilateral femoral heads similar prior and may suggest avascular necrosis. Procedure Note Matt Edwards MD - 11/06/2023 EXAMINATION: CT CHEST ABDOMEN PELVIS W CONTRAST (GENERIC) CLINICAL HISTORY: Fall from standing on anticoagulation. TECHNIQUE: Helical CT of the chest, abdomen, and pelvis following the intravenous administration of contrast. 69 cc Omnipaque 350 IV contrast.Oral contrast was not administered. COMPARISON: CT AP from 05/31/2022 FINDINGS: Chest: Lungs and large airways: Slightly limited evaluation due to motionartifact. Bibasilar mild atelectasis with no focal lung consolidation. The centralairways are patent. Pleura: No effusion or pneumothorax. Heart/vasculature: Normal heart size with diffuse coronary arterycalcification and postsurgical changes. No pericardial effusion. No aortic aneurysm.No central pulmonary arterial filling defect. Lymph nodes: No enlarged lymph nodes. Mediastinum and markell: No mass, fluid or pneumomediastinum. Abdomen/pelvis: Liver: Normal size and attenuation without lesions. Bile ducts: Nondilated. Gallbladder: No calcified gallstones. Normal caliber wall. Pancreas: Normal attenuation without ductal dilatation. Spleen: Normal. Adrenals: Normal. Kidneys: Symmetric enhancement without hydronephrosis. Left upper polecyst versus focal infarct. Right upper pole exophytic simple cyst. Urinary Bladder: Normal. Vasculature: No acute hemorrhage. No aortic aneurysm. Diffuse calcifiedplaque. Lymph Nodes: No enlarged lymph nodes. Bowel: Nondilated, no wall thickening. Peritoneum and retroperitoneum: No free fluid or loculated fluidcollection. No pneumoperitoneum. Abdominal wall: No acute findings. Reproductive organs: Mild prostatic enlargement with coarse calcificationsand fiducial markers. Osseous structures: No acute fracture or suspicious osseous lesion.Unchanged thoracolumbar spine compression fractures L1 and T9 vertebroplasty's.Sclerosis of the bilateral femoral heads similar prior and may suggest avascularnecrosis. IMPRESSION No evidence of acute thoracic or abdominal pathology. Thank you for letting us participate in the care of this patient. If youare a health care provider and have any questions regarding this report,please contact the number below. For patients who have questions please contactthe health health care attorney that requested your imaging first. Felix Gonzalez MD IMG CT ORDERABLES * CT Cervical Spine Reconstruction (11/06/2023 10:40 AM EST) Anatomical Region Laterality Modality C-spine Computed Tomogra phy Impressions 11/06/2023 11:29 AM EST 1. ??No acute fracture or malalignment. 2. ??Diffuse osseous demineralization and multilevel degenerative changes throughout the spine as described. I have personally reviewed the image(s) and the resident's interpretation and agree with the findings, Edson Danielle DO at 11/06/2023 11:29 AM Thank you for letting us participate in the care of this patient. ??If you are a health care provider and have any questions regarding this report, please contact the number below. ??For patients who have questions please contact the health health care attorney that requested your imaging first. ? Electronically signed by: Edson Danielle DO, [facility] ??([phone]), at 11/06/2023 11:29 AM Narrative 11/06/2023 11:29 AM EST EXAMINATION: CT CERVICAL SPINE RECONSTRUCTION, CT LUMBAR SPINE RECONSTRUCTION, CT THORACIC SPINE RECONSTRUCTION CLINICAL HISTORY: fall, stroke alert TECHNIQUE: Dedicated reconstructions were created of the cervical, thoracic, and lumbar spine utilizing a bone algorithm. COMPARISON: CT abdomen and pelvis 05/31/2022, thoracic spine MRI 09/06/2020 FINDINGS: CERVICAL SPINE Diffuse osseous demineralization. There is no acute fracture. Vertebral bodies are maintained in height. ?? Alignment is unremarkable. The craniocervical and atlantoaxial relationships are preserved. Multilevel degenerative changes of the cervical spine with endplate osteophyte formation and loss of disc height. No significant osseous spinal canal stenosis. No perivertebral soft tissue swelling. No visualized apical lung masses or consolidation. THORACIC SPINE Diffuse osseous demineralization. There is no acute fracture. Remote T9 compression deformity status post vertebroplasty. Similar mild accompanying spinal stenosis. Multilevel degenerative changes of the thoracic spine with endplate osteophyte formation and vacuum disc phenomenon. Additional mild loss of height of the T3 and T7 vertebral bodies noted, unchanged. Alignment is normal. No additional significant osseous spinal canal stenosis. LUMBAR SPINE Diffuse osseous demineralization. 5 nonrib-bearing vertebrae are present in the lumbar spine. No acute fracture or traumatic subluxation noted. Remote compression deformity of L1 status post vertebroplasty. Compression deformity of L4, present since at least 2021. No acute fractures. Multilevel degenerative changes of the lumbar spine demonstrated by endplate osteophyte formation and vacuum disc phenomenon. Calcified atherosclerotic plaque over the visualized aorta. Procedure Note Edson Danielle, DO - 11/06/2023 EXAMINATION: CT CERVICAL SPINE RECONSTRUCTION, CT LUMBAR SPINERECONSTRUCTION, CT THORACIC SPINE RECONSTRUCTION CLINICAL HISTORY: fall, stroke alert TECHNIQUE: Dedicated reconstructions were created of the cervical, thoracic, andlumbar spine utilizing a bone algorithm. COMPARISON: CT abdomen and pelvis 05/31/2022, thoracic spine MRI 09/06/2020 FINDINGS: CERVICAL SPINE Diffuse osseous demineralization. There is no acute fracture. Vertebral bodies are maintained in height. Alignment is unremarkable. The craniocervical and atlantoaxialrelationships are preserved. Multilevel degenerative changes of the cervical spine with endplateosteophyte formation and loss of disc height. No significant osseous spinal canalstenosis. No perivertebral soft tissue swelling. No visualized apical lung masses or consolidation. THORACIC SPINE Diffuse osseous demineralization. There is no acute fracture. Remote T9 compression deformity status post vertebroplasty. Similar mild accompanying spinal stenosis. Multilevel degenerative changes of thethoracic spine with endplate osteophyte formation and vacuum disc phenomenon.Additional mild loss of height of the T3 and T7 vertebral bodies noted, unchanged. Alignment is normal. No additional significant osseous spinal canalstenosis. LUMBAR SPINE Diffuse osseous demineralization. 5 nonrib-bearing vertebrae are present in the lumbar spine. No acute fracture or traumatic subluxation noted. Remote compression deformity of L1 status post vertebroplasty.Compression deformity of L4, present since at least 2021. No acute fractures. Multilevel degenerative changes of the lumbar spine demonstrated byendplate osteophyte formation and vacuum disc phenomenon. Calcified atherosclerotic plaque over the visualized aorta. IMPRESSION 1. No acute fracture or malalignment. 2. Diffuse osseous demineralization and multilevel degenerative changes throughout the spine as described. I have personally reviewed the image(s) and the resident's interpretationand agree with the findings, Edson Danielle DO at 11/06/2023 11:29 AM Thank you for letting us participate in the care of this patient. If youare a health care provider and have any questions regarding this report,please contact the number below. For patients who have questions please contactthe health health care attorney that requested your imaging first. Felix Gonzalez MD IMG CT ORDERABLES * CT Head wo & Multiphase CTA Head/Neck (THROMBECTOMY PROTOCOL) (11/06/2023 10:40 AM EST) Anatomical Region Laterality Modality Head Computed Tomogra phy Impressions 11/06/2023 11:19 AM EST 1. ??No acute intracranial hemorrhage. 2. ??Occlusion of the left pericallosal BRUCE. 3. ??Severe stenosis and focal occlusion of the right ICA origin. 4. ??Severe stenosis of the left ICA origin. 5. ??Severe stenosis of the right vertebral artery origin. 6. ??Remote left inferior frontal infarcts. Thank you for letting us participate in the care of this patient. ??If you are a health care provider and have any questions regarding this report, please contact the number below. ??For patients who have questions please contact the health health care attorney that requested your imaging first. ? Narrative 11/06/2023 11:19 AM EST EXAMINATION: CT HEAD WO & MULTIPHASE CTA HEAD/NECK (THROMBECTOMY PROTOCOL) CLINICAL HISTORY: aphasia, RUE and RLE weakness TECHNIQUE: CT of head without intravenous contrast. Multiphase CTA of the carotids and [place] is performed after the administration of 65cc of Omnipaque 350 intravenous contrast. MIP and 3-D volumetric reconstructions were created. COMPARISON: None FINDINGS: Head: There is no acute intracranial hemorrhage, midline shift, mass effect, hydrocephalus or extra-axial collection. 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 No acute loss of ratliff-white differentiation. Foramen magnum and basilar cisterns are patent. Moderate generalized cerebral volume loss. Extracranial soft tissues and orbits are unremarkable. Osteopenia. No fracture or aggressive osseous lesions. Paranasal sinuses, mastoid air cells and middle ear cavities are clear. CTA NECK: Three-vessel arch with extensive calcified and noncalcified plaque, and ductus bump versus ulcerated plaque. Mild narrowing of the innominate and right subclavian artery origins, and moderate stenosis of the left subclavian artery origin, due to calcified and noncalcified plaque. Right carotid: Plaque along the common carotid artery without significant stenosis. There is severe stenosis and focal occlusion of the proximal right ICA due to predominantly noncalcified plaque at the carotid bifurcation, with mild stenosis throughout the remainder of the right internal carotid artery. Left carotid: Mild stenosis at the origin due to calcified and noncalcified plaque. There is severe but nonocclusive stenosis of the ICA origin at the bifurcation due to predominantly calcified plaque. Cervical ICAs are otherwise normal caliber in the neck. Vertebral arteries: Severe stenosis of the right vertebral artery at its origin. Moderate stenosis at the origin of the left vertebral artery, vertebral arteries are otherwise normal caliber throughout the neck. Right is slightly dominant. CTA head: Mild diffuse narrowing of the right ICA. Calcified plaque mildly narrows the bilateral cavernous and paraclinoid ICA is. BRUCE A1 segments are patent, as is the anterior communicating artery. There is occlusion of the left pericallosal BRUCE at approximately the A3/4 junction. (Series 10, image 81). MCA M1 segments, bifurcations and proximal sylvian branches are patent. Intradural vertebral arteries are normal caliber. Normal caliber basilar artery. Mild narrowing of the proximal left posterior cerebral artery. Procedure Note Lynn Morgan MD - 11/06/2023 EXAMINATION: CT HEAD WO & MULTIPHASE CTA HEAD/NECK (THROMBECTOMYPROTOCOL) CLINICAL HISTORY: aphasia, RUE and RLE weakness TECHNIQUE: CT of head without intravenous contrast. Multiphase CTA of the carotidsand [place] is performed after the administration of 65cc ofOmnipaque 350 intravenous contrast. MIP and 3-D volumetric reconstructions werecreated. COMPARISON: None FINDINGS: Head: There is no acute intracranial hemorrhage, midline shift, mass effect, hydrocephalus or extra-axial collection. Left inferior frontalencephalomalacia consistent with prior infarcts. No acute loss of ratliff-whitedifferentiation. Foramen magnum and basilar cisterns are patent. Moderate generalizedcerebral volume loss. Extracranial soft tissues and orbits are unremarkable. Osteopenia. No fracture or aggressive osseous lesions. Paranasalsinuses, mastoid air cells and middle ear cavities are clear. CTA NECK: Three-vessel arch with extensive calcified and noncalcifiedplaque, and ductus bump versus ulcerated plaque. Mild narrowing of the innominate and right subclavian artery origins,and moderate stenosis of the left subclavian artery origin, due to calcifiedand noncalcified plaque. Right carotid: Plaque along the common carotid artery withoutsignificant stenosis. There is severe stenosis and focal occlusion of the proximalright ICA due to predominantly noncalcified plaque at the carotid bifurcation, withmild stenosis throughout the remainder of the right internal carotid artery. Left carotid: Mild stenosis at the origin due to calcified andnoncalcified plaque. There is severe but nonocclusive stenosis of the ICA origin atthe bifurcation due to predominantly calcified plaque. Cervical ICAs areotherwise normal caliber in the neck. Vertebral arteries: Severe stenosis of the right vertebral artery at itsorigin. Moderate stenosis at the origin of the left vertebral artery, vertebralarteries are otherwise normal caliber throughout the neck. Right is slightlydominant. CTA head: Mild diffuse narrowing of the right ICA. Calcified plaque mildly narrowsthe bilateral cavernous and paraclinoid ICA is. BRUCE A1 segments are patent, as is the anterior communicating artery. There is occlusion of the left pericallosal BRUCE at approximately theA3/4 junction. (Series 10, image 81). MCA M1 segments, bifurcations and proximal sylvian branches are patent. Intradural vertebral arteries are normal caliber. Normal caliber basilarartery. Mild narrowing of the proximal left posterior cerebral artery. IMPRESSION 1. No acute intracranial hemorrhage. 2. Occlusion of the left pericallosal BRUCE. 3. 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 4. Severe stenosis of the left ICA origin. 5. Severe stenosis of the right vertebral artery origin. 6. Remote left inferior frontal infarcts. Thank you for letting us participate in the care of this patient. If youare a health care provider and have any questions regarding this report,please contact the number below. For patients who have questions please contactthe health health care attorney that requested your imaging first. Barbie Orr MD IMG CT ORDERABLES * EKG 12 Lead (11/06/2023 10:34 AM EST) Pathologist [facility] Ventricular rate 99 BPM MUSE SYSTEM QRS Duration 112 ms MUSE SYSTEM Q-T Interval 388 ms MUSE SYSTEM QTC Calculated (Bezet) 497 ms MUSE SYSTEM Calculated R [place] -55 degrees MUSE SYSTEM Calculated T [place] 73 degrees MUSE SYSTEM INTERPRETATION Atrial fibrillation Left anterior fascicular block Minimal voltage criteria for LVH, may be normal variant ( [place] product ) Nonspecific ST and T wave abnormality Prolonged QT Abnormal ECG When compared with ECG of 31-MAY-2022 10:11, No significant change was found Confirmed by MD Jeanette, Alan Stewart ([id number]) on 11/06/2023 3:33:17 PM MUSE SYSTEM 11/06/2023 10:3 4 AM EST 11/06/2023 3:33 PM EST Barbie Orr MD ECG ORDERABLES MUSE SYSTEM * (ABNORMAL) BLOOD GAS 2 VENOUS (11/06/2023 10:11 AM EST) Pathologist [facility] pH, Venous 7.36 7.32 - 7.42 [facility] PCO2, Venous 52(H) 41 - 51 mmHg [facility] PO2, Venous 23(L) 25 - 40 mmHg [facility] Bicarbonate, Venous 28.4 mmol/L [facility] Base Excess, Venous 3.0 mmol/L [facility] Hgb Blood Gas 16.5 13.7 - 16.5 g/dL [facility] Oxyhemoglobin, Venous 42.9 % [facility] Carboxyhemoglob in, Venous 1.5 % [facility] Comment: Nonsmokers: 0.5-1.5% COHB Smokers: Variable, but usually less than 10% Toxic: 20-30% COHB Lethal: Greater than 60% COHB Methemoglobin, Venous 0.3 <=1.5 % [facility] Na Whole Blood 142 135 - 145 mmol/L [facility] K Whole Blood 4.7 3.5 - 5.0 mmol/L [facility] Comment: Please note: Patients with WBC >100,000 may have falsely elevated Potassium levels. Contact the Clinical Chemistry Laboratory if there are any questions. ICa Whole Blood 1.18 1.15 - 1.33 mmol/L [facility] Comment: Note: ??Total bilirubin higher than 20 mg/dL may lead to falsely low ionized calcium. CL Whole Blood 103 98 - 107 mmol/L [facility] Gluc Whole Bld 238(H) 65 - 199 mg/dL [facility] Comment:Diabetes: >=200 mg/d L plus symptoms Lactate WB 1.6 0.5 - 2.2 mmol/L [facility] Blood Gas Source Venous [facility] Blood 11/06/2023 10:1 1 AM EST 11/06/2023 10:11 AM EST Barbie Orr MD POINT OF CARE TEST O RDERABLES [facility] [place] [address] * XR Chest AP and Pelvis AP Trauma (Generic) (11/06/2023 10:08 AM EST) Anatomical Region Laterality Modality N/A Digital Radiogra phy Impressions 11/06/2023 11:47 AM EST No acute radiographically evident abnormality in the visualized chest or pelvis. I have personally reviewed the image(s) and the resident's interpretation and agree with the findings, Robyn Najera MD at 11/06/2023 11:47 AM Thank you for letting us participate in the care of this patient. ??If you are a health care provider and have any questions regarding this report, please contact the number below. ??For patients who have questions please contact the health health care attorney that requested your imaging first. ? Narrative 11/06/2023 11:47 AM EST EXAMINATION: XR CHEST AP AND PELVIS AP TRAUMA (GENERIC) CLINICAL HISTORY: trauma - further eval of potential injury TECHNIQUE: AP supine radiographs of the chest and pelvis. COMPARISON: CT abdomen and pelvis with contrast 05/31/2022, chest radiographs 05/31/2022 FINDINGS: Chest: No focal opacities. Mildly enlarged contours of the cardiomediastinal silhouette which may be accentuated by patient positioning and image acquisition. Curvilinear calcifications project in the aortic arch. No pneumothorax or pleural effusion. No radiographically evident rib fracture. Sternal cerclage wires and mediastinal surgical clips are present. Pelvis: The bones are intact. Joint alignment in the bilateral hips is normal. The SI joints and pubic symphysis are normal. No abnormal soft tissue contours. Bilateral vascular calcifications are present. Status post fiducial markers are noted projecting in the pelvis. Procedure Note Robyn Ott MD - 11/06/2023 EXAMINATION: XR CHEST AP AND PELVIS AP TRAUMA (GENERIC) CLINICAL HISTORY: trauma - further eval of potential injury TECHNIQUE: AP supine radiographs of the chest and pelvis. COMPARISON: CT abdomen and pelvis with contrast 05/31/2022, chest radiographs05/31/2022 FINDINGS: Chest: No focal opacities. Mildly enlarged contours of the cardiomediastinalsilhouette which may be accentuated by patient positioning and image acquisition. Curvilinear calcifications project in the aortic arch. No pneumothoraxor pleural effusion. No radiographically evident rib fracture. Sternal cerclage wires andmediastinal surgical clips are present. Pelvis: The bones are intact. Joint alignment in the bilateral hips is normal. TheSI joints and pubic symphysis are normal. No abnormal soft tissue contours. Bilateral vascular calcifications are present. Status post fiducialmarkers are noted projecting in the pelvis. IMPRESSION No acute radiographically evident abnormality in the visualized chest orpelvis. I have personally reviewed the image(s) and the resident's interpretationand agree with the findings, Robyn Najera MD at 311:47 AM Thank you for letting us participate in the care of this patient. If youare a health care provider and have any questions regarding this report,please contact the number below. For patients who have questions please contactthe health health care attorney that requested your imaging first. Electronically signed by: Robyn Najera MD, [facility] ([phone]), at 11/06/2023 11:47 AM Felix Gonzalez MD IMG DX ORDERABLES * Phosphorus (11/06/2023 10:07 AM EST) [facility] Phosphorus 2.7 2.5 - 4.5 mg/dL [facility] Blood Venous Draw / Unknown 11/06/2023 10:07 AM EST 11/06/2023 10:25 AM EST Narrative Resulting Agency Comment Spec In Lab Natalie TRIPP CHEMISTRY ORDERABLES [facility] [place] [address] * Magnesium (11/06/2023 10:07 AM EST) [facility] Magnesium 0.90 0.69 - 1.07 mmol/L [facility] Blood Venous Draw / Unknown 11/06/2023 10:07 AM EST 11/06/2023 10:25 AM EST Narrative Resulting Agency Comment Spec In Lab Natalie TRIPP CHEMISTRY ORDERABLES [facility] [place] [address] * LDL Cholesterol, Direct (11/06/2023 10:07 AM EST) LDL Cholesterol, Direct 112 mg/dL [facility] Comment: Lowest Risk: <100 mg/dL Lower Risk: 100-129 mg/dL Borderline High Risk: 130-159 mg/dL High Risk: 160-189 mg/dL Very High Risk: >lp=967 mg/dL Blood Venous Draw / Unknown 11/06/2023 10:07 AM EST 11/06/2023 10:25 AM EST Narrative Resulting Agency Comment Spec In Lab Natalie TRIPP CHEMISTRY ORDERABLES [facility] [place] [address] * HDL/Cholesterol Profile (11/06/2023 10:07 AM EST) Cholesterol, Total 192 mg/dL [facility] Comment: Lower Risk: <200 mg/dL Average Risk: 200-239 mg/dL Higher Risk: >fq=429 mg/dL HDL Cholesterol 61 mg/dL [facility] Comment: Males: ?? Higher Risk: <40 mg/dL Females: ?? Higher Risk: <50 mg/dL Cholesterol/HDL Ratio 3.1 ratio [facility] Chol/HDL Interpretation See Note [facility] Comment: Lipid management should be guided by a patient? s ASCVD risk, goals and preferences. ACC/AHA Guidelines recommend high intensity statin if clinical ASCVD or LDL greater than or equal to 190 mg/dL. [email or web address] [email or web address]-JEA-[email or web address] Measure LDL if Total Cholesterol minus HDL Cholesterol is greater than 220 mg/dL. Adults aged 40-75 with LDL 70-189 mg/dL should have their 10 year ASCVD risk estimated with the ACC/AHA ASCVD risk crating and moving estimator http://tools.acc.org/CHJKC-Gyrs-Puohetjlv/ Statin should be discussed if risk greater than or equal to 7.5% in non-diabetics. With diabetes, moderate intensity statin is recommended if risk less than 7.5%, high intensity if risk greater than or equal to 7.5%. Annual lipid monitoring on statins is not necessary. Lifestyle modification is a critical component of ASCVD risk reduction. Blood Venous Draw / Unknown 11/06/2023 10:07 AM EST 11/06/2023 10:25 AM EST Narrative Resulting Agency Comment Spec In Lab Natalie TRIPP CHEMISTRY ORDERABLES [facility] [address] * (ABNORMAL) Hemoglobin A1c (11/06/2023 10:07 AM EST) Hemoglobin A1c 7.7(H) 4.3 - 5.6 % [facility] Comment: Reference Range: 4.3 - 5.6% 5.7 - 6.4% - Increased Risk of Developing Diabetes Mellitus >= 6.5% - Consistent with diagnosis of Diabetes Mellitus In the absence of hyperglycemia (i.e. plasma glucose > 200 mg/dL) or classic symptoms of hyperglycemia a repeat measurement of HbA1c should be performed on a separate sample to confirm the diagnosis. Diagnosis and Classification of Diabetes Mellitus, Diabetes Care 2013; 36: Suppl. 1, S66-51 Estimated Average Glucose See note mg/dL [facility] Comment: Estimated Average Glucose not appropriate for patients over 70 years of age. Note: The eAG calculation has not been proven valid for women, individuals below 18 years old or above 70 years old, or individuals with hemoglobinopathies. Estimated average glucose (eAG) is calculated from the equation described in: Anival CANELA, Tarun J, Rishi R, et al. ??Translating the A1C assay into estimated average glucose values. ??Diabetes Care 2008:31(8):0878-7713. Additional resources are available on the ADA website (diabetes.org). Blood Venous Draw / Unknown 11/06/2023 10:07 AM EST 11/06/2023 11:03 AM EST Narrative Resulting Agency Comment Spec In Lab Natalie TRIPP CHEMISTRY ORDERABLES Performing Organization Address [facility] Co de Phone Number [facility] [place] [address] * ABORH Recheck Status (11/06/2023 10:07 AM EST) ABORH Type Recheck Completed [facility] Blood 11/06/2023 10:0 7 AM EST 11/06/2023 10:13 AM EST Narrative Resulting Agency Comment Spec In Lab Felix Gonzalez MD BLOOD BANK LAB ORDER NICK Performing Organization Address [facility] [place] [address] * Gold Tube HOLD (11/06/2023 10:07 AM EST) Pathologist [facility] Gold Hold Sample in lab. [facility] Blood Venous Draw / Unknown 11/06/2023 10:07 AM EST 11/06/2023 10:28 AM EST Felix Gonzalez MD CHEMISTRY ORDERABLES Performing Organization Address [facility] de Phone Number [facility] [place] [address] * (ABNORMAL) Differential, Automated (11/06/2023 10:07 AM EST) Neutrophil % 64.9 % [facility] Neutrophil Absolute 6.25(H) 1.70 - 6.10 x10(3)/mc L [facility] Lymph % 24.2 % [facility] Lymphocytes Abs 2.3 0.9 - 3.2 x10(3)/mc L [facility] Monocyte % 9.2 % [facility] Monocyte Abs 0.9 0.3 - 0.9 x10(3)/mc L [facility] Eos % 0.6 % [facility] Eosinophils Abs 0.1 0.0 - 0.4 x10(3)/mc L [facility] Basophil % 0.6 % [facility] Baso Absolute 0.1 0.0 - 0.1 x10(3)/mc L [facility] Immature Gran % 0.50 % [facility] Comment: Immature granulocytes(IG's)percentage and absolute count will include metamyelocytes, myelocytes, and promyelocytes. Blood smears from CBCs yielding IG's will be scanned manually for concordance. If this scan disagrees with the automated IG or if promyelocytes are noted, a manual differential will be performed. Immature Gran Absolute 0.05(H) 0.00 - 0.04 x10(3)/ L [facility] Blood 11/06/2023 10:0 7 AM EST 11/06/2023 10:25 AM EST Narrative Resulting Agency Comment Spec In Lab Felix Gonzalez MD HEMATOLOGY ORDERABLE S [facility] [place] [address] * (ABNORMAL) Hemogram (11/06/2023 10:07 AM EST) White Blood Cell 9.6(H) 4.0 - 9.5 x10(3)/mc L [facility] Red Blood Cell 5.15 4.58 - 5.54 x10(6)/mc L [facility] Hemoglobin 16.2 13.7 - 16.5 g/dL [facility] Hematocrit 47.2 40.5 - 48.5 % [facility] Mean Cell Volume 91.7 82.9 - 93.1 fL [facility] Mean Cell Hemoglobin 31.5 27.5 - 32.1 pg [facility] Mean Cell Hemoglobin Concentration 34.3 32.0 - 35.7 g/dL [facility] Platelet 154 145 - 357 x10(3)/ L [facility] RDW Standard Deviation 43.3 36.0 - 45.0 fL [facility] RDW coefficient of variation 12.9 11.4 - 13.8 % [facility] Mean Platelet Volume 10.6 7.6 - 12.9 fL [facility] NRBC% auto 0.0 % [facility] NRBC Absolute 0.000 0.000 - 0.000 x10(3)/mc L [facility] Blood 11/06/2023 10:0 7 AM EST 11/06/2023 10:25 AM EST Narrative Resulting Agency Comment Spec In Lab Felix Gonzalez MD HEMATOLOGY ORDERABLE S [facility] [place] [address] * Type and screen ([facility]/CGP/MYLES) (11/06/2023 10:07 AM EST) ABORH Type O POSITIVE [facility] Patient BB History Found [facility] Expires at 0167 on: 11-09-2023 [facility] Ab Screen Interp Negative [facility] Blood 11/06/2023 10:0 7 AM EST 11/06/2023 10:07 AM EST Narrative [facility] - 11/06/2023 10:07 AM EST This Type and Screen result is only valid at the [facility] Resulting Agency Comment Spec In Lab Felix Gonzalez MD BLOOD BANK LAB ORDER NICK Performing Organization Address [facility] Co de Phone Number [facility] [address] * Ethanol Level (11/06/2023 10:07 AM EST) Ethanol <100 <=99 mg/L [facility] Comment: Greater than 800 mg/L (0.08%) should be considered intoxicated. 3400 to 4500 mg/L (0.34 - 0.45%) is considered severe intoxication. Greater than 5500 mg/L (0.55%) is usually fatal. Blood 11/06/2023 10:0 7 AM EST 11/06/2023 10:25 AM EST Narrative Resulting Agency Comment Spec In Lab Felix Gonzalez MD CHEMISTRY ORDERABLES Performing Organization Address City/[facility]/ZIP Co de Phone Number [facility] [address] * APTT (11/06/2023 10:07 AM EST) Partial Thromboplastin Time 28 25 - 37 sec [facility] Comment: The PTT is NOT appropriate for heparin monitoring. Use the Anti-Xa level for heparin monitoring (HEP UFH) or LMWH monitoring (HEP LMW). A PTT less than 37 seconds generally indicates adequate hemostasis. Blood 11/06/2023 10:0 7 AM EST 11/06/2023 10:25 AM EST Narrative Resulting Agency Comment Spec In Lab Felix Gonzalez MD HEMATOLOGY ORDERABLE S Performing Organization Address [facility] Co de Phone Number [facility] [address] * Prothrombin Time (11/06/2023 10:07 AM EST) Prothrombin Time 10.9 9.4 - 12.5 sec [facility] International Normalization Ratio 1.0 [facility] Comment: An INR <2.0 indicates adequate procoagulant activity for hemostasis in most patients without underlying bleeding disorders, though the INR may not adequately reflect hemostatic capacity in patients with liver disease and synthetic impairment. The recommended target INR range for therapeutic anticoagulation is 2.0 ? 3.0 for most applications, though lower and higher ranges may be appropriate depending on clinical circumstances. Blood 11/06/2023 10:0 7 AM EST 11/06/2023 10:25 AM EST Narrative Resulting Agency Comment Spec In Lab Felix Gonzalez MD HEMATOLOGY ORDERABLE S Performing Organization Address City/[facility]/ZIP Co de Phone Number [facility] [address] * (ABNORMAL) Basic Metabolic Panel (non-fasting) (11/06/2023 10:07 AM EST) Glucose 248(H) 65 - 199 mg/dL [facility] Comment:Diabetes: >=200 mg/d L plus symptoms Blood Urea Nitrogen 24(H) 10 - 20 mg/dL [facility] Creatinine 0.87 0.80 - 1.50 mg/dL [facility] Sodium 142 135 - 145 mmol/L [facility] Potassium 4.7 3.5 - 5.0 mmol/L [facility] Comment: Please note: ??Patients with WBC >100,000 may have falsely elevated Potassium levels. ??For accurate Potassium quantification in these patients send serum separator tube (gold top) for subsequent determinations. ??Contact the Clinical Chemistry Laboratory if there are any questions. Chloride 105 98 - 107 mmol/L [facility] Carbon Dioxide 26 22 - 31 mmol/L [facility] Anion Gap 11 5 - 15 mmol/L [facility] Calcium 9.1 8.5 - 10.5 mg/dL [facility] Est Glomerular Filtration Rate 87 >=60 mL/min/1. 73 m?? [facility] Comment: This patient's estimated GFR was calculated using the 2020 CKD-EPI equation. The estimated [...] mass and symptoms in addition to eGFR. Blood 11/06/2023 10:0 7 AM EST 11/06/2023 10:25 AM EST Narrative Resulting Agency Comment Spec In Lab Felix Gonzalez MD CHEMISTRY ORDERABLES Performing Organization Address City/State/[facility] Co de Phone Number [facility] [address] * Rapid Drug Screen w/o Confirmation, Urine (11/06/2023 10:04 AM EST) Barbiturates Screen, Urine None Detected None Detected [facility] Comment: The barbiturate screen detects barbiturates at concentrations >200 ng/mL. Note: Not all barbiturates cross-react equally with antibody used in this screen. A ? Presumptive Positive? result indicates that the screening result was positive but has not yet been confirmed by a highly-specific method. As with any screen, occasional false positive results from cross-reacting substances may occur. Not for Medico-Legal Purposes. Benzodiazepines Screen, Urine None Detected None Detected [facility] Comment: The benzodiazepines screen detects benzodiazepines at concentrations >100 ng/mL. Not all benzodiazepines cross-react equally with antibody used in this screen. Due to the low dosage of clonazepam, false negatives may be obtained due to low concentration of clonazepam metabolites. A ? Presumptive Positive? result indicates that the screening result was positive but has not yet been confirmed by a highly-specific method. As with any screen, occasional false positive results from cross-reacting substances may occur. Not for Medico-Legal Purposes. Cocaine Screen, Urine None Detected None Detected [facility] Comment: The cocaine metabolites screen detects benzoylecgonine (Cocaine Metabolite) at concentrations >150 ng/mL. A ? Presumptive Positive? result indicates that the screening result was positive but has not yet been confirmed by a highly-specific method. As with any screen, occasional false positive results from cross-reacting substances may occur. Not for Medico-Legal Purposes. Methadone Metabolites Screen, Urine None Detected None Detected [facility] Comment: The methadone metabolite screen detects EDDP (major methadone metabolite) at concentrations >100 ng/mL. A ? Presumptive Positive? result indicates that the screening result was positive but has not yet been confirmed by a highly-specific method. As with any screen, occasional false positive results from cross-reacting substances may occur. Not for Medico-Legal Purposes. Opiate Screen, Urine None Detected None Detected [facility] Comment: The opiates screen detects opiates at concentrations >300 ng/mL. Please note that oxycodone, oxymorphone, fentanyl, tramadol, and other synthetic opioids are not detected by the opiate screen. A ? Presumptive Positive? result indicates that the screening result was positive but has not yet been confirmed by a highly-specific method. As with any screen, occasional false positive results from cross-reacting substances may occur. Not for Medico-Legal Purposes. Cannabinoid Screen, Urine None Detected None Detected [facility] Comment: The marijuana metabolites screen detects the THC metabolite (85-opi-6-carboxy-delta 9-THC) at concentrations >20 ng/mL. A ? Presumptive Positive? result indicates that the screening result was positive but has not yet been confirmed by a highly-specific method. As with any screen, occasional false positive results from cross-reacting substances may occur. Not for Medico-Legal Purposes. Oxycodone Screen, Urine None Detected None Detected [facility] Comment: The oxycodone screen detects oxycodone and oxymorphone at concentrations >100 ng/mL. A ? Presumptive Positive? result indicates that the screening result was positive but has not yet been confirmed by a highly-specific method. As with any screen, occasional false positive results from cross-reacting substances may occur. Not for Medico-Legal Purposes. Buprenorphine Screen, Urine None Detected None Detected [facility] Comment: The buprenorphine screen detects buprenorphine at concentrations >=5 ng/mL. A ? Presumptive Positive? result indicates that the screening result was positive but has not yet been confirmed by a highly-specific method. As with any screen, occasional false positive results from cross-reacting substances may occur. Not for Medico-Legal Purposes. This test has not been cleared by the [place] FDA. Performance characteristics of this test were determined by [facility] in accordance with CLIA requirements. This laboratory is qualified under CLIA to perform high-complexity testing. Fentanyl Screen, Urine None Detected None Detected [facility] Comment: The fentanyl screen detects fentanyl at concentrations >=2 ng/mL. A ? Presumptive Positive? result indicates that the screening result was positive but has not yet been confirmed by a highly-specific method. As with any screen, occasional false positive results from cross-reacting substances may occur. Not for Medico-Legal Purposes. This test has not been cleared by the [place] FDA. Performance characteristics of this test were determined by [facility] in accordance with CLIA requirements. This laboratory is qualified under CLIA to perform high-complexity testing. Tricyclics Screen, Urine None Detected None Detected [facility] Comment: The tricyclics screen detects tricyclic antidepressants at concentrations >=150 ng/mL. Not all tricyclics cross-react equally with the antibody used in this screen. A ? Presumptive Positive? result indicates that the screening result was positive but has not yet been confirmed by a highly-specific method. As with any screen, occasional false positive results from cross-reacting substances may occur. Not for Medico-Legal Purposes. This test has not been cleared by the [place] FDA. Performance characteristics of this test were determined by [facility] in accordance with CLIA requirements. This laboratory is qualified under CLIA to perform high-complexity testing. Ethanol Screen, Urine None Detected None Detected [facility] Comment:This urine ethanol a ssay detects ethanol at concentrations >/= 100 mg/L. Amphetamines Screen, Urine None Detected None Detected [facility] Comment: The amphetamine screen detects d-amphetamine and d-methamphetamine at concentrations >300 ng/mL. A ? Presumptive Positive? result indicates that the screening result was positive but has not yet been confirmed by a highly-specific method. As with any screen, occasional false positive results from cross-reacting substances may occur. Not for Medico-Legal Purposes. Creatinine Specimen Validity Test, Urine 48 >=20 mg/dL [facility] Chromate Specimen Validity Test, Urine <2.0 <=49.9 mg/L [facility] Nitrite Specimen Validity Test, Urine <50 <=499 mg/L [facility] Oxidant Specimen Validity Test, Urine 11 <=199 mg/L [facility] pH Specimen Validity Test, Urine 6.2 3.0 - 10.9 [facility] Adulterants Screen, Urine None Detected None Detected [facility] Comment:No adulteration of t his urine sample was detected. Urine 11/06/2023 10:0 4 AM EST 11/06/2023 11:16 AM EST Narrative Resulting Agency Comment Spec In Lab Felix Gonzalez MD CHEMISTRY ORDERABLES Performing Organization Address [facility] [facility] [place] Co de Phone Number [facility] [place] [address] * Rapid Drug Screen, Urine (KILO Request) (11/06/2023 10:04 AM EST) KILO Conf Requested No [facility] KILO Requested See Comment [facility] Comment:Refer to Rapid Drug Screen w/o Confirmation, Urine for results. Urine 11/06/2023 10:0 4 AM EST 11/06/2023 11:16 AM EST Narrative Resulting Agency Comment Spec In Lab Felix Gonzalez MD URINE ORDERABLES Performing Organization Address [facility] Co de Phone Number [facility] [place] [address] * Urinalysis Microscopic Exam (11/06/2023 10:03 AM EST) RBC, Urine 0 0 - 3 /HPF [facility] WBC, Urine 1 0 - 3 /HPF [facility] Squamous Epithelial Cells Raw Data, Urine 1 <=4 /HPF [facility] Hyaline Casts, Urine 1 0 - 2 /LPF [facility] Clean Catch Urine 11/06/2023 10:03 AM EST 11/06/2023 11:16 AM EST Narrative Resulting Agency Comment Spec In Lab Felix Gonzalez MD URINE ORDERABLES [facility] [address] [place] [address] * (ABNORMAL) Urinalysis with reflex Culture (11/06/2023 10:03 AM EST) Glucose, Urine Dipstick 100(A) Negative mg/dL [facility] Protein, Urine Dipstick Trace(A) Negative mg/dL [facility] Bilirubin, Urine Dipstick Negative Negative mg/dL [facility] Comment: Clinical correlation required for positive Urine Bilirubin results as false positive may occur with some drugs and drug related products. If a false positive is suspected a serum total bilirubin should be considered if clinically indicated. Urobilinogen, Urine Dipstick Normal Normal mg/dL [facility] pH, Urn (dipstick) 6.5 5.0 - 8.0 [facility] Blood, Urine Dipstick Negative Negative mg/dL [facility] Ketone, Urine Dipstick Negative Negative mg/dL [facility] Nitrite, Urine Dipstick Negative Negative [facility] Leukocytes, Urine Dipstick Negative Negative mcL [facility] Appearance, Urine Dipstick Clear Clear [facility] Specific [place] Urine Automated >=1.030(A) 1.005 - 1.030 [facility] Color, Urine Dipstick Yellow Yellow [facility] Reflex to Culture No [facility] Clean Catch Urine 11/06/2023 10:03 AM EST 11/06/2023 11:16 AM EST Narrative Resulting Agency Comment Spec In Lab Felix Gonzalez MD URINE ORDERABLES [facility] [address] * (ABNORMAL) POCT Glucose (11/06/2023 9:59 AM EST) Glucose, POC 221(H) 65 - 199 mg/dL [facility] Comment: Supplemental ranges: <140 mg/dL before meals <180 mg/dL all other times of the day Blood 11/06/2023 9:59 AM EST 11/06/2023 9:59 AM EST Barbie Orr MD POINT OF CARE TEST O RDERABLES [facility] [address] documented in this encounter Visit Diagnoses Diagnosis 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 Cerebrovascular accident (CVA), unspecified mechanism Atrial fibrillation, unspecified type Acute stroke due to ischemia Aphasia as late effect of cerebrovascular accident Aphasia, late effect of cerebrovascular disease documented in this encounter Admitting Diagnoses Diagnosis Stroke Unspecified cerebral artery occlusion with cerebral infarction documented in this encounter Administered Medications Inactive Administered Medications - up to 3 most recent administrations Medication Order MAR Action Action Date Dose Rate Site acetaminophen (Tylenol) tablet 975 mg 975 mg, Oral, EVERY 6 HOURS PRN, Starting on Brandi 11/06/23 at 1451, Until Fri11/12/23 at 1310, Pain, Maximum dose of acetaminophen is 4,000 mg from all sources in 24 hours. When ordered for pain, acetaminophen should be given even when other ordered pain medications are indicated., Routine alteplase (Activase) (1 mg/mL) injection Kit 58.8 mg 58.8 mg (rounded from 58.806 mg = 0.81 mg/kg/dose ? 72.6 kg), Intravenous, Administer over 60 Minutes, ONCE, 1 dose, On Brandi 11/06/23 at 1045, STAT Given 11/06/2023 11:01 AM EST 58.8 mg alteplase (Activase) (1 mg/mL) IV bolus (from vial) 6.5 mg 6.5 mg (rounded from 6.534 mg = 0.09 mg/kg/dose ? 72.6 kg), Intravenous, ONCE, 1 dose, On Brandi 11/06/23 at 1045, Push over 1 minute, STAT Given 11/06/2023 11:01 AM EST 6.5 mg apixaban (Eliquis) tablet 2.5 mg 2.5 mg, Oral, 2 TIMES DAILY, First dose (after last modification) on Fri11/10/23 at 2100, Until Discontinued, Anticoagulant, Routine, Restricted anticoagulant, choose the most appropriate response: Approved indication of non-valvular atrial fibrillation Given 11/12/2023 9:58 AM EST 2.5 mg Given 11/11/2023 8:31 PM EST 2.5 mg Given 11/11/2023 9:15 AM EST 2.5 mg carvediloL (Coreg) tablet 3.125 mg 3.125 mg, Oral, 2 TIMES DAILY, First dose on Fri11/07/23 at 1445, Until Discontinued, Routine Given 11/08/2023 8:36 AM EST 3.125 mg Given 11/07/2023 8:08 PM EST 3.125 mg Given 11/07/2023 2:07 PM EST 3.125 mg carvediloL (Coreg) tablet 3.125 mg 3.125 mg, Oral, ONCE, 1 dose, On 11/08/23 at 1200, Routine Given 11/08/2023 11:50 AM EST 3.125 mg carvediloL (Coreg) tablet 6.25 mg 6.25 mg, Oral, 2 TIMES DAILY, First dose (after last modification) on 11/08/23 at 2100, Until Discontinued, Routine Given 11/09/2023 8:44 AM EST 6.25 mg Given 11/08/2023 8:50 PM EST 6.25 mg clopidogreL (Plavix) tablet 300 mg 300 mg, Oral, ONCE, 1 dose, On Fri11/07/23 at 1400, Routine Given 11/07/2023 2:07 PM EST 300 mg clopidogreL (Plavix) tablet 75 mg 75 mg, Oral, DAILY, First dose on 11/08/23 at 0900, Until Discontinued, Routine Given 11/11/2023 9:1 4 AM EST 75 mg Given 11/10/2023 8:51 AM EST 75 mg Given 11/09/2023 8:43 AM EST 75 mg dextrose 10% infusion 250 mL, at 1,000 mL/hr, Intravenous, EVERY 15 MIN PRN, Starting on 11/08/23 at 1213, Until Fri11/12/23 at 1310, For BG 50-70 mg/dL: Oral treatment preferred: If able to drink, give 120 mL juice or regular (not diet) soda OR if NPO, give 15 gram glucose 40% oral gel massaged into buccal mucosa OR if unconscious or uncooperative, give 25 gram (250 mL) dextrose 10% IV over 15 minutes per protocol OR, if no IV access, 1 mg glucagon IM. For BG less than 50 mg/dL: Oral treatment preferred: If able to drink, give 240 mL juice or regular (not diet) soda OR if NPO, give 30 gram glucose 40% oral gel massaged in buccal mucosa OR if unconscious or uncooperative, give 25 gram (250 mL) dextrose 10% IV over 15 minutes per protocol OR, if no IV access, 1 mg glucagon IM. Recheck BG in 15 minutes. May repeat juice/soda, gel, dextrose or glucagon once per episode. Notify provider if hypoglycemia does not resolve after two treatments. Providers should consider the following: administering longer-acting treatments for the duration of active insulin or hypoglycemia agent for persistent hypoglycemia and re-evaluating active insulin orders before administering the next dose. enalaprilat (Vasotec) (1.25 mg/mL) injection 1.25 mg 1.25 mg, Intravenous, Administer over 5 Minutes, EVERY 6 HOURS PRN, Starting on Brandi 11/06/23 at 1039, Until Fri11/12/23 at 1310, Hypertension, Administer if goal BP is not achieved with labetaloL or max dose of niCARdipine. Enalaprilat can be given with labetaloL or niCARdipine. SBP greater than 180 mm Hg or DBP greater than 105 mmHg, Routine enoxaparin (Lovenox) (40 mg/0.4 mL) subcutaneous injection 40 mg 40 mg, Subcutaneous, NIGHTLY, First dose on 11/07/23 at 2100, Until Discontinued, Routine Given 11/09/2023 8:15 PM EST 40 mg Given 11/08/2023 8:50 PM EST 40 mg Given 11/07/2023 8:08 PM EST 40 mg glucagon (Glucagen) (1 mg/mL) injection solution 1 mg 1 mg, Intramuscular, EVERY 15 MIN PRN, Starting on 11/08/23 at 1213, Until Fri11/12/23 at 1310, Low blood sugar, For BG 50-70 mg/dL: Oral treatment preferred: If able to drink, give 120 mL juice or regular (not diet) soda OR if NPO, give 15 gram glucose 40% oral gel massaged into buccal mucosa OR if unconscious or uncooperative, give 25 gram (250 mL) dextrose 10% IV over 15 minutes per protocol OR, if no IV access, 1 mg glucagon IM. For BG less than 50 mg/dL: Oral treatment preferred: If able to drink, give 240 mL juice or regular (not diet) soda OR if NPO, give 30 gram glucose 40% oral gel massaged in buccal mucosa OR if unconscious or uncooperative, give 25 gram (250 mL) dextrose 10% IV over 15 minutes per protocol OR, if no IV access, 1 mg glucagon IM. Recheck BG in 15 minutes. May repeat juice/soda, gel, dextrose or glucagon once per episode. Notify provider if hypoglycemia does not resolve after two treatments. Providers should consider the following: administering longer-acting treatments for the duration of active insulin or hypoglycemia agent for persistent hypoglycemia and re-evaluating active insulin orders before administering the next dose. , Routine glucose (Glutose) 40% oral geL 15-30 g of glucose, Buccal, EVERY 15 MIN PRN, Starting on 11/08/23 at 1213, Until Fri11/12/23 at 1310, Low blood sugar, For BG 50-70 mg/dL: Oral treatment preferred: If able to drink, give 120 mL juice or regular (not diet) soda OR if NPO, give 15 gram glucose 40% oral gel massaged into buccal mucosa OR if unconscious or uncooperative, give 25 gram (250 mL) dextrose 10% IV over 15 minutes per protocol OR, if no IV access, 1 mg glucagon IM. For BG less than 50 mg/dL: Oral treatment preferred: If able to drink, give 240 mL juice or regular (not diet) soda OR if NPO, give 30 gram glucose 40% oral gel massaged in buccal mucosa OR if unconscious or uncooperative, give 25 gram (250 mL) dextrose 10% IV over 15 minutes per protocol OR, if no IV access, 1 mg glucagon IM. Recheck BG in 15 minutes. May repeat juice/soda, gel, dextrose or glucagon once per episode. Notify provider if hypoglycemia does not resolve after two treatments. Providers should consider the following: administering longer-acting treatments for the duration of active insulin or hypoglycemia agent for persistent hypoglycemia and re-evaluating active insulin orders before administering the next dose. 1 tube of Glutose-15 contains 15 grams of glucose (net weight of tube = 37.5 grams.), Routine insulin glargine-ygfn (Semglee) (100 unit/mL) subcutaneous injection vial 10 Units 10 Units, Subcutaneous, 2 TIMES DAILY, First dose (after last modification) on 11/08/23 at 2100, Until Discontinued, Hold if BG is less than 110, Routine Given 11/09/2023 10:00 AM EST 10 Units Left Upper Outer Quadrant Given 11/08/2023 9:05 PM EST 10 Units insulin glargine-ygfn (Semglee) (100 unit/mL) subcutaneous injection vial 10 Units 10 Units, Subcutaneous, DAILY, First dose (after last modification) on Fri11/10/23 at 0900, Until Discontinued, Hold if BG is less than 110, Routine Given 11/12/2023 9:58 AM EST 10 Units Given 11/11/2023 9:14 AM EST 10 Units Given 11/10/2023 9:58 AM EST 10 Units insulin lispro (HumaLOG;Admelog) (100 unit/mL) subcutaneous injection vial 0-8 Units 0-8 Units, Subcutaneous, 3 TIMES DAILY WITH MEALS, First dose on 11/08/23 at 1315, Until Discontinued, [employer] Give 1 unit for every 10 grams carbohydrate. Hold if not eating or if BG less than 70 mg/dL. , Routine Given 11/12/2023 9:58 AM EST 3 Units Given 11/11/2023 5:20 PM EST 2 Units Given 11/11/2023 12:08 PM EST 6 Units insulin lispro (HumaLOG;Admelog) (100 unit/mL) subcutaneous injection vial 1-4 Units 1-4 Units, Subcutaneous, EVERY 4 HOURS SCHEDULED, First dose on Brandi 11/06/23 at 1600, Until Discontinued, CORRECTION BOLUS [1-4 Units] Sensitive Sliding Scale (BG in mg/dL): Correction factor 40 (1 unit of insulin is expected to drop the glucose 40 mg/dL) ?? BG 160 - 200 Give 1 unit BG 201 - 240 Give 2 units BG 241 - 280 Give 3 units and recheck BG in 2 hours. BG greater than 280, give 4 units and recheck BG in 2 hours. - If recheck BG is LESS than 280, give no insulin and resume schedule - If recheck BG is GREATER than or EQUAL to 280, give 4 units and repeat BG in 2 hours (no more than 3 times)??& call for new insulin orders. DO NOT hold if NPO, unless specifically directed to do so by written order. ?? Per Inpatient Subcutaneous Insulin Policy, recheck a BG of greater than 240 mg/dL in 2 hours., Routine Given 11/06/2023 8:59 PM EST 2 Units Given 11/06/2023 4:31 PM EST 2 Units insulin lispro (HumaLOG;Admelog) (100 unit/mL) subcutaneous injection vial 1-4 Units 1-4 Units, Subcutaneous, 4 TIMES DAILY BEFORE MEALS & NIGHTLY, First dose (after last modification) on Fri11/07/23 at 0730, Until Discontinued, CORRECTION BOLUS [1-4 Units] Sensitive Sliding Scale (BG in mg/dL): Correction factor 40 (1 unit of insulin is expected to drop the glucose 40 mg/dL) ?? BG 160 - 200 Give 1 unit BG 201 - 240 Give 2 units BG 241 - 280 Give 3 units and recheck BG in 2 hours. BG greater than 280, give 4 units and recheck BG in 2 hours. - If recheck BG is LESS than 280, give no insulin and resume schedule - If recheck BG is GREATER than or EQUAL to 280, give 4 units and repeat BG in 2 hours (no more than 3 times)??& call for new insulin orders. DO NOT hold if NPO, unless specifically directed to do so by written order. ?? Per Inpatient Subcutaneous Insulin Policy, recheck a BG of greater than 240 mg/dL in 2 hours., Routine Given 11/08/2023 11:54 AM EST 2 Units Given 11/08/2023 8:37 AM EST 3 Units Given 11/07/2023 8:12 PM EST 2 Units insulin lispro (HumaLOG;Admelog) (100 unit/mL) subcutaneous injection vial 1-4 Units 1-4 Units, Subcutaneous, EVERY 4 HOURS SCHEDULED, First dose on 11/08/23 at 1315, Until Discontinued, CORRECTION BOLUS [1-4 Units] Sensitive Sliding Scale (BG in mg/dL): Correction factor 40 (1 unit of insulin is expected to drop the glucose 40 mg/dL) ?? BG 160 - 200 Give 1 unit BG 201 - 240 Give 2 units BG 241 - 280 Give 3 units and recheck BG in 2 hours. BG greater than 280, give 4 units and recheck BG in 2 hours. - If recheck BG is LESS than 280, give no insulin and resume schedule - If recheck BG is GREATER than or EQUAL to 280, give 4 units and repeat BG in 2 hours (no more than 3 times)??& call for new insulin orders. DO NOT hold if NPO, unless specifically directed to do so by written order. ?? Per Inpatient Subcutaneous Insulin Policy, recheck a BG of greater than 240 mg/dL in 2 hours., Routine Given 11/11/2023 3:54 PM EST 2 Units Right Lower Quadrant Given 11/11/2023 4:00 AM EST 1 Units Given 11/10/2023 11:46 AM EST 1 Units iohexoL (Omnipaque) (350 mg/mL) solution 0-200 mL 0-200 mL, Intravenous, ONCE PRN, 1 dose, Starting on Brandi 11/06/23 at 1027, Until Brandi 11/06/23 at 1027, Per Protocol, Warning Vesicant/Irritant Medication , Radiology Contrast, Routine Given 11/06/2023 10:27 AM EST 69 mLs labetaloL (Normodyne) (5 mg/mL) injection solution 10-20 mg 10-20 mg, Intravenous, Administer over 2 Minutes, EVERY 15 MIN PRN, Starting on Brandi 11/06/23 at 1039, Until Fri11/12/23 at 1310, High Blood Pressure, Administer for systolic BP greater than or equal to 180 mmHg and/or diastolic BP greater than or equal to 105 mmHg. Administer 10 mg over 2 minutes. May repeat every 15 minutes if SBP remains above goal. If inadequate effect with 10 mg dose then increase to 20 mg per dose for subsequent dosing every 15 minutes. Do not exceed 300 mg per 24 hours. Hold if pulse less than 50 beats per minute. If goal BP is not achieved after 3 consecutive doses of labetaloL, call Knot Tier. May be given with niCARdipine and enalaprilat., Routine lactated ringers infusion 100 mL/hr, Intravenous, CONTINUOUS, Starting on Brandi 11/06/23 at 1043, Until Brandi 11/06/23 at 1453 New Bag 11/06/2023 10:51 AM EST 100 mL/hr 100 mL/hr lidocaine (Xylocaine) 1% (10 mg/mL) injection 3 mg 3 mg (0.3 mL), Subcutaneous, ONCE PRN, 1 dose, Starting on Brandi 11/06/23 at 1039, Until Fri11/12/23 at 1310, for discomfort with PIV insertion, Routine magnesium sulfate 2 g in sterile water 50 mL infusion 2 g, Intravenous, ONCE, 1 dose, On 11/08/23 at 1045, Administer over 120 Minutes New Bag 11/08/2023 11:54 AM EST 2 g 25 mL/hr magnesium sulfate 2 g in sterile water 50 mL infusion 2 g, Intravenous, ONCE, 1 dose, On Fri11/12/23 at 0600, Administer over 120 Minutes New Bag 11/12/2023 5:48 AM EST 2 g 25 mL/hr melatonin tablet 3 mg 3 mg, Oral, NIGHTLY, First dose on 11/09/23 at 2100, Until Discontinued, Routine Given 11/11/2023 8:31 PM EST 3 mg Given 11/10/2023 9:12 PM EST 3 mg Given 11/09/2023 8:16 PM EST 3 mg metoproloL tartrate (Lopressor) tablet 12.5 mg 12.5 mg, Oral, EVERY 12 HOURS SCHEDULED (2 times per day), First dose (after last modification) on 11/09/23 at 2100, Until Discontinued, Hold for SBP <100, HR <60, Routine Given 11/12/2023 9:58 AM EST 12.5 mg Given 11/11/2023 8:30 PM EST 12.5 mg Given 11/11/2023 9:15 AM EST 12.5 mg ondansetron (pf) (Zofran) (2 mg/mL) injection 4 mg 4 mg, Intravenous, EVERY 8 HOURS PRN, Starting on Fri11/09/23 at 0748, Until Fri11/12/23 at 1310, Nausea, Vomiting ondansetron ODT (Zofran-ODT) disintegrating tablet 4 mg 4 mg, Oral, EVERY 8 HOURS PRN, Starting on Fri11/09/23 at 0748, Until Fri11/12/23 at 1310, Nausea, Routine pantoprazole EC (Protonix) tablet 40 mg 40 mg, Oral, DAILY, First dose on Fri11/07/23 at 0900, Until Discontinued, DO NOT CRUSH OR OPEN, Routine Given 11/07/2023 8:08 AM EST 40 mg pantoprazole EC (Protonix) tablet 40 mg 40 mg, Oral, 2 TIMES DAILY, First dose (after last modification) on Fri11/07/23 at 2100, Until Discontinued, DO NOT CRUSH OR OPEN, Routine Given 11/12/2023 9:58 AM EST 40 mg Given 11/11/2023 8:31 PM EST 40 mg Given 11/11/2023 9:15 AM EST 40 mg rosuvastatin (Crestor) tablet 40 mg 40 mg, Oral, EVERY EVENING, First dose on Fri11/06/23 at 1700, Until Discontinued, Routine Given 11/11/2023 4:4 6 PM EST 40 mg Given 11/10/2023 5:30 PM EST 40 mg Given 11/09/2023 5:02 PM EST 40 mg senna-docusate (Pericolace) 8.6-50 mg per tablet 1 tablet 1 tablet, Oral, 2 TIMES DAILY, First dose on Fri11/06/23 at 2100, Until Discontinued, Routine Given 11/12/2023 9:58 AM EST 1 tablet Given 11/11/2023 8:31 PM EST 1 tablet Given 11/11/2023 9:15 AM EST 1 tablet sodium chloride 0.9 % (flush) (BD PosiFlush Normal Saline 0.9) flush 5 mL 5 mL, Intravenous, 2 TIMES DAILY, First dose on Fri11/06/23 at 1045, Until Discontinued, Routine Given 11/11/2023 8:31 PM EST 5 mLs Given 11/11/2023 9:15 AM EST 5 mLs Given 11/10/2023 9:12 PM EST 5 mLs sodium chloride 0.9 % (flush) (BD PosiFlush Normal Saline 0.9) flush 5-20 mL 5-20 mL, Intravenous, EVERY 1 MIN PRN, Starting on Brandi 11/06/23 at 1039, Until Fri11/12/23 at 1310, flush, Flush pertains to all indwelling lines. Flush per protocol found in the job aid using the link provided on this medication record., Routine sodium chloride 0.9% 500 mL IV bolus at 250 mL/hr, Intravenous, ONCE, 1 dose, On 11/09/23 at 1400 New Bag 11/09/2023 1:17 PM EST 2 50 mL/hr sodium chloride 0.9% 500 mL IV bolus at 250 mL/hr, Intravenous, ONCE, 1 dose, On 11/10/23 at 1100 New Bag 11/10/2023 10:24 AM EST 25 0 mL/hr sodium chloride 0.9% infusion 30 mL, Intravenous, ONCE, 1 dose, On Brandi 11/06/23 at 1214, After alteplase (Activase) infusion has completed, flush line with 30 mL, running at same rate as alteplase infusion. New Bag 11/06/2023 11:53 AM EST 30 mLs tamsulosin (Flomax) capsule 0.4 mg 0.4 mg, Oral, DAILY, First dose on Fri11/07/23 at 0900, Until Discontinued, DO NOT CRUSH OR CHEW, Routine Given 11/11/2023 8:31 PM EST 0.4 mg Given 11/10/2023 9:13 PM EST 0.4 mg Given 11/09/2023 8:16 PM EST 0.4 mg traZODone (Desyrel) tablet 50 mg 50 mg, Oral, NIGHTLY PRN, Starting on 11/09/23 at 0214, Until Fri11/12/23 at 1310, Sleep, if melatonin ineffective, Routine documented in this encounter Active and Recently Administered Medications Times are shown in EST. Scheduled Medication Order 11/10/2023 11/11/2023 11/12/2023 apixaban (Eliquis) tablet 2.5 mg 2.5 mg, Oral, 2 TIMES DAILY, First dose (after last modification) on Fri11/10/23 at 2100, Until Discontinued, Anticoagulant, Routine, Restricted anticoagulant, choose the most appropriate response: Approved indication of non-valvular atrial fibrillation 2111 (Given - Provider: Armando Pelayo, DION) 0915 (Given - Provider: Edson Carrion RN)2030 (Given - Provider: Armando Pelayo RN) 0958 (Given - Provider: Edson Carrion, DION) clopidogreL (Plavix) tablet 75 mg (CANCELED) 75 mg, Oral, DAILY, First dose on 11/08/23 at 0900, Until Discontinued, Routine 0851 (Given - Provider: Namita Olmedo RN) 0914 (Given - Provider: Edson Carrion, DION) insulin glargine-ygfn (Semglee) (100 unit/mL) subcutaneous injection vial 10 Units 10 Units, Subcutaneous, DAILY, First dose (after last modification) on Fri11/10/23 at 0900, Until Discontinued, Hold if BG is less than 110, Routine 0958 (Given - Provider: Tamiko Shell RN) 0914 (Given - Provider: Edson Carrion RN) 0958 (Given - Provider: Edson Carrion, RN) insulin lispro (HumaLOG;Admelog) (100 unit/mL) subcutaneous injection vial 0-8 Units 0-8 Units, Subcutaneous, 3 TIMES DAILY WITH MEALS, First dose on 11/08/23 at 1315, Until Discontinued, [employer] Give 1 unit for every 10 grams carbohydrate. Hold if not eating or if BG less than 70 mg/dL. , Routine 0757 (Given - Provider: Namita Olmedo RN)1252 (Given - Provider: Tamiko Shell RN)1731 (Given - Provider: Namita Olmedo RN) 0800 (Not Given - Provider: Edson Carrion RN - Reason: Order parameters not met)1208 (Given - Provider: Edson Cariron RN)1720 (Given - Provider: Edson Carrion, RN) 0958 (Given - Provider: Edson Carrion, RN) insulin lispro (HumaLOG;Admelog) (100 unit/mL) subcutaneous injection vial 1-4 Units(Linked Group 1) 1-4 Units, Subcutaneous, EVERY 4 HOURS SCHEDULED, First dose on 11/08/23 at 1315, Until Discontinued, CORRECTION BOLUS [1-4 Units] Sensitive Sliding Scale (BG in mg/dL): Correction factor 40 (1 unit of insulin is expected to drop the glucose 40 mg/dL) ?? BG 160 - 200 Give 1 unit BG 201 - 240 Give 2 units BG 241 - 280 Give 3 units and recheck BG in 2 hours. BG greater than 280, give 4 units and recheck BG in 2 hours. - If recheck BG is LESS than 280, give no insulin and resume schedule - If recheck BG is GREATER than or EQUAL to 280, give 4 units and repeat BG in 2 hours (no more than 3 times)??& call for new insulin orders. DO NOT hold if NPO, unless specifically directed to do so by written order. ?? Per Inpatient Subcutaneous Insulin Policy, recheck a BG of greater than 240 mg/dL in 2 hours., Routine 0000 (Not Given - Provider: Armando Pelayo RN - Reason: Order parameters not met)0400 (Not Given - Provider: Armando Pelayo RN - Reason: Order parameters not met)0757 (Given - Provider: Namita Olmedo RN)1146 (Given - Provider: Namita Olmedo RN)1600 (Not Given - Provider: Tamiko Shell RN - Reason: Order parameters not met)2000 (Not Given - Provider: Armando Pelayo RN - Reason: Order parameters not met) 0000 (Not Given - Provider: Armando Pelayo RN - Reason: Order parameters not met)0400 (Given - Provider: Armando Pelayo RN)0800 (Not Given - Provider: Edson Carrion RN - Reason: Order parameters not met - Comment: bg [id number])1200 (Not Given - Provider: Edson Carrion RN - Reason: Order parameters not met)1554 (Given - Provider: Cornel Yao RN)2000 (Not Given - Provider: Armando Pelayo RN - Reason: Order parameters not met) 0000 (Not Given - Provider: Armando Pelayo RN - Reason: Order parameters not met)0400 (Not Given - Provider: Armando Pelayo RN - Reason: Order parameters not met)0800 (Not Given - Provider: Edson Carrion RN - Reason: Order parameters not met) magnesium sulfate 2 g in sterile water 50 mL infusion (COMPLETED) 2 g, Intravenous, ONCE, 1 dose, On Fri11/12/23 at 0600, Administer over 120 Minutes 0548 (New Bag - Provider: Armando Pelayo RN)0748 (Stopped - Provider: Edson Carrion RN) melatonin tablet 3 mg 3 mg, Oral, NIGHTLY, First dose on 11/09/23 at 2100, Until Discontinued, Routine 2111 (Given - Provider: Armando Pelayo RN) 2030 (Given - Provider: Armando Pelayo RN) metoproloL tartrate (Lopressor) tablet 12.5 mg 12.5 mg, Oral, EVERY 12 HOURS SCHEDULED (2 times per day), First dose (after last modification) on 11/09/23 at 2100, Until Discontinued, Hold for SBP <100, HR <60, Routine 0850 (Not Given - Provider: Namita Olmedo RN - Reason: Order parameters not met)2110 (Given - Provider: Armando Pelayo RN) 0915 (Given - Provider: Edson Carrion RN)2029 (Given - Provider: Armando Pelayo RN) 0958 (Given - Provider: Edson Carrion RN) pantoprazole EC (Protonix) tablet 40 mg 40 mg, Oral, 2 TIMES DAILY, First dose (after last modification) on Fri11/07/23 at 2100, Until Discontinued, DO NOT CRUSH OR OPEN, Routine 0851 (Given - Provider: Namita Olmedo RN)2111 (Given - Provider: Armando Pelayo RN) 0915 (Given - Provider: Edson Carrion RN)2030 (Given - Provider: Armando Pelayo RN) 0958 (Given - Provider: Edson Carrion, DION) rosuvastatin (Crestor) tablet 40 mg 40 mg, Oral, EVERY EVENING, First dose on Brandi 11/06/23 at 1700, Until Discontinued, Routine 1730 (Given - Provider: Namita Olmedo RN) 1646 (Given - Provider: Edson Carrion, DION) senna-docusate (Pericolace) 8.6-50 mg per tablet 1 tablet 1 tablet, Oral, 2 TIMES DAILY, First dose on Fri11/06/23 at 2100, Until Discontinued, Routine 0900 (Not Given - Provider: Namita Olmedo RN - Reason: Patient/family refused)2111 (Given - Provider: Armando Pelayo RN) 914 (Given - Provider: Edosn Carrion, DION)2030 (Given - Provider: Armando Pelayo, RN) 0958 (Given - Provider: Edson Carrion, RN) sodium chloride 0.9 % (flush) (BD PosiFlush Normal Saline 0.9) flush 5 mL 5 mL, Intravenous, 2 TIMES DAILY, First dose on Brandi 11/06/23 at 1045, Until Discontinued, Routine 0852 (Given - Provider: Namita Olmedo RN)2111 (Given - Provider: Armando Pelayo RN) 09 (Given - Provider: Edson Carrion, DION)2030 (Given - Provider: Armando Pelayo, DION) 0900 (Not Given - Provider: Edson Carrion RN - Reason: See comment - Comment: pt d/c, no iv) sodium chloride 0.9% 500 mL IV bolus (COMPLETED) at 250 mL/hr, Intravenous, ONCE, 1 dose, On Fri11/10/23 at 1100 1024 (New Bag - Provider: Namita Olmedo RN)1224 (Stopped - Provider: Tamiko Shell RN) tamsulosin (Flomax) capsule 0.4 mg 0.4 mg, Oral, DAILY, First dose on Fri11/07/23 at 0900, Until Discontinued, DO NOT CRUSH OR CHEW, Routine 2112 (Given - Provider: Armando Pelayo RN) 2030 (Given - Provider: Armando Pelayo, DION) PRN Medication Order 11/10/2023 11/11/2023 11/12/2023 acetaminophen (Tylenol) tablet 975 mg 975 mg, Oral, EVERY 6 HOURS PRN, Starting on Brandi 11/06/23 at 1451, Until Fri11/12/23 at 1310, Pain, Maximum dose of acetaminophen is 4,000 mg from all sources in 24 hours. When ordered for pain, acetaminophen should be given even when other ordered pain medications are indicated., Routine dextrose 10% infusion(Linked Group 2) 250 mL, at 1,000 mL/hr, Intravenous, EVERY 15 MIN PRN, Starting on 11/08/23 at 1213, Until Fri11/12/23 at 1310, For BG 50-70 mg/dL: Oral treatment preferred: If able to drink, give 120 mL juice or regular (not diet) soda OR if NPO, give 15 gram glucose 40% oral gel massaged into buccal mucosa OR if unconscious or uncooperative, give 25 gram (250 mL) dextrose 10% IV over 15 minutes per protocol OR, if no IV access, 1 mg glucagon IM. For BG less than 50 mg/dL: Oral treatment preferred: If able to drink, give 240 mL juice or regular (not diet) soda OR if NPO, give 30 gram glucose 40% oral gel massaged in buccal mucosa OR if unconscious or uncooperative, give 25 gram (250 mL) dextrose 10% IV over 15 minutes per protocol OR, if no IV access, 1 mg glucagon IM. Recheck BG in 15 minutes. May repeat juice/soda, gel, dextrose or glucagon once per episode. Notify provider if hypoglycemia does not resolve after two treatments. Providers should consider the following: administering longer-acting treatments for the duration of active insulin or hypoglycemia agent for persistent hypoglycemia and re-evaluating active insulin orders before administering the next dose. enalaprilat (Vasotec) (1.25 mg/mL) injection 1.25 mg 1.25 mg, Intravenous, Administer over 5 Minutes, EVERY 6 HOURS PRN, Starting on Brandi 11/06/23 at 1039, Until Fri11/12/23 at 1310, Hypertension, Administer if goal BP is not achieved with labetaloL or max dose of niCARdipine. Enalaprilat can be given with labetaloL or niCARdipine. SBP greater than 180 mm Hg or DBP greater than 105 mmHg, Routine glucagon (Glucagen) (1 mg/mL) injection solution 1 mg(Linked Group 2) 1 mg, Intramuscular, EVERY 15 MIN PRN, Starting on 11/08/23 at 1213, Until Fri11/12/23 at 1310, Low blood sugar, For BG 50-70 mg/dL: Oral treatment preferred: If able to drink, give 120 mL juice or regular (not diet) soda OR if NPO, give 15 gram glucose 40% oral gel massaged into buccal mucosa OR if unconscious or uncooperative, give 25 gram (250 mL) dextrose 10% IV over 15 minutes per protocol OR, if no IV access, 1 mg glucagon IM. For BG less than 50 mg/dL: Oral treatment preferred: If able to drink, give 240 mL juice or regular (not diet) soda OR if NPO, give 30 gram glucose 40% oral gel massaged in buccal mucosa OR if unconscious or uncooperative, give 25 gram (250 mL) dextrose 10% IV over 15 minutes per protocol OR, if no IV access, 1 mg glucagon IM. Recheck BG in 15 minutes. May repeat juice/soda, gel, dextrose or glucagon once per episode. Notify provider if hypoglycemia does not resolve after two treatments. Providers should consider the following: administering longer-acting treatments for the duration of active insulin or hypoglycemia agent for persistent hypoglycemia and re-evaluating active insulin orders before administering the next dose. , Routine glucose (Glutose) 40% oral geL(Linked Group 2) 15-30 g of glucose, Buccal, EVERY 15 MIN PRN, Starting on 11/08/23 at 1213, Until 11/12/23 at 1310, Low blood sugar, For BG 50-70 mg/dL: Oral treatment preferred: If able to drink, give 120 mL juice or regular (not diet) soda OR if NPO, give 15 gram glucose 40% oral gel massaged into buccal mucosa OR if unconscious or uncooperative, give 25 gram (250 mL) dextrose 10% IV over 15 minutes per protocol OR, if no IV access, 1 mg glucagon IM. For BG less than 50 mg/dL: Oral treatment preferred: If able to drink, give 240 mL juice or regular (not diet) soda OR if NPO, give 30 gram glucose 40% oral gel massaged in buccal mucosa OR if unconscious or uncooperative, give 25 gram (250 mL) dextrose 10% IV over 15 minutes per protocol OR, if no IV access, 1 mg glucagon IM. Recheck BG in 15 minutes. May repeat juice/soda, gel, dextrose or glucagon once per episode. Notify provider if hypoglycemia does not resolve after two treatments. Providers should consider the following: administering longer-acting treatments for the duration of active insulin or hypoglycemia agent for persistent hypoglycemia and re-evaluating active insulin orders before administering the next dose. 1 tube of Glutose-15 contains 15 grams of glucose (net weight of tube = 37.5 grams.), Routine labetaloL (Normodyne) (5 mg/mL) injection solution 10-20 mg 10-20 mg, Intravenous, Administer over 2 Minutes, EVERY 15 MIN PRN, Starting on Brandi 11/06/23 at 1039, Until Fri11/12/23 at 1310, High Blood Pressure, Administer for systolic BP greater than or equal to 180 mmHg and/or diastolic BP greater than or equal to 105 mmHg. Administer 10 mg over 2 minutes. May repeat every 15 minutes if SBP remains above goal. If inadequate effect with 10 mg dose then increase to 20 mg per dose for subsequent dosing every 15 minutes. Do not exceed 300 mg per 24 hours. Hold if pulse less than 50 beats per minute. If goal BP is not achieved after 3 consecutive doses of labetaloL, call [facility]. May be given with niCARdipine and enalaprilat., Routine lidocaine (Xylocaine) 1% (10 mg/mL) injection 3 mg 3 mg (0.3 mL), Subcutaneous, ONCE PRN, 1 dose, Starting on Brandi 11/06/23 at 1039, Until Fri11/12/23 at 1310, for discomfort with PIV insertion, Routine ondansetron (pf) (Zofran) (2 mg/mL) injection 4 mg(Linked Group 3) 4 mg, Intravenous, EVERY 8 HOURS PRN, Starting on 11/09/23 at 0748, Until Fri11/12/23 at 1310, Nausea, Vomiting ondansetron ODT (Zofran-ODT) disintegrating tablet 4 mg(Linked Group 3) 4 mg, Oral, EVERY 8 HOURS PRN, Starting on 11/09/23 at 0748, Until Fri11/12/23 at 1310, Nausea, Routine sodium chloride 0.9 % (flush) (BD PosiFlush Normal Saline 0.9) flush 5-20 mL 5-20 mL, Intravenous, EVERY 1 MIN PRN, Starting on Brandi 11/06/23 at 1039, Until Fri11/12/23 at 1310, flush, Flush pertains to all indwelling lines. Flush per protocol found in the job aid using the link provided on this medication record., Routine traZODone (Desyrel) tablet 50 mg 50 mg, Oral, NIGHTLY PRN, Starting on 11/09/23 at 0214, Until Fri11/12/23 at 1310, Sleep, if melatonin ineffective, Routine Linked Groups Order Group 1: POCT Fingerstick Glucose (CANCELED) Routine, EVERY 4 HOURS, First occurrence on 11/08/23 at 1230, Until Specified, Consider choosing EVERY 4 HOURS as frequency for: - Type 1 Diabetes - At least 24 hours after coming off an insulin drip - At least 24 hours after admission for DKA - Hypoglycemia unawareness - Patients who are otherwise unstable Select the same frequency for the correction bolus insulin order And insulin lispro (HumaLOG;Admelog) (100 unit/mL) subcutaneous injection vial 1-4 UnitsJump to med 1-4 Units, Subcutaneous, EVERY 4 HOURS SCHEDULED, First dose on 11/08/23 at 1315, Until Discontinued, CORRECTION BOLUS [1-4 Units] Sensitive Sliding Scale (BG in mg/dL): Correction factor 40 (1 unit of insulin is expected to drop the glucose 40 mg/dL) ?? BG 160 - 200 Give 1 unit BG 201 - 240 Give 2 units BG 241 - 280 Give 3 units and recheck BG in 2 hours. BG greater than 280, give 4 units and recheck BG in 2 hours. - If recheck BG is LESS than 280, give no insulin and resume schedule - If recheck BG is GREATER than or EQUAL to 280, give 4 units and repeat BG in 2 hours (no more than 3 times)??& call for new insulin orders. DO NOT hold if NPO, unless specifically directed to do so by written order. ?? Per Inpatient Subcutaneous Insulin Policy, recheck a BG of greater than 240 mg/dL in 2 hours., Routine Group 2: glucose (Glutose) 40% oral geLJump to med 15-30 g of glucose, Buccal, EVERY 15 MIN PRN, Starting on 11/08/23 at 1213, Until Fri11/12/23 at 1310, Low blood sugar, For BG 50-70 mg/dL: Oral treatment preferred: If able to drink, give 120 mL juice or regular (not diet) soda OR if NPO, give 15 gram glucose 40% oral gel massaged into buccal mucosa OR if unconscious or uncooperative, give 25 gram (250 mL) dextrose 10% IV over 15 minutes per protocol OR, if no IV access, 1 mg glucagon IM. For BG less than 50 mg/dL: Oral treatment preferred: If able to drink, give 240 mL juice or regular (not diet) soda OR if NPO, give 30 gram glucose 40% oral gel massaged in buccal mucosa OR if unconscious or uncooperative, give 25 gram (250 mL) dextrose 10% IV over 15 minutes per protocol OR, if no IV access, 1 mg glucagon IM. Recheck BG in 15 minutes. May repeat juice/soda, gel, dextrose or glucagon once per episode. Notify provider if hypoglycemia does not resolve after two treatments. Providers should consider the following: administering longer-acting treatments for the duration of active insulin or hypoglycemia agent for persistent hypoglycemia and re-evaluating active insulin orders before administering the next dose. 1 tube of Glutose-15 contains 15 grams of glucose (net weight of tube = 37.5 grams.), Routine Or dextrose 10% infusionJump to med 250 mL, at 1,000 mL/hr, Intravenous, EVERY 15 MIN PRN, Starting on 11/08/23 at 1213, Until 11/12/23 at 1310, For BG 50-70 mg/dL: Oral treatment preferred: If able to drink, give 120 mL juice or regular (not diet) soda OR if NPO, give 15 gram glucose 40% oral gel massaged into buccal mucosa OR if unconscious or uncooperative, give 25 gram (250 mL) dextrose 10% IV over 15 minutes per protocol OR, if no IV access, 1 mg glucagon IM. For BG less than 50 mg/dL: Oral treatment preferred: If able to drink, give 240 mL juice or regular (not diet) soda OR if NPO, give 30 gram glucose 40% oral gel massaged in buccal mucosa OR if unconscious or uncooperative, give 25 gram (250 mL) dextrose 10% IV over 15 minutes per protocol OR, if no IV access, 1 mg glucagon IM. Recheck BG in 15 minutes. May repeat juice/soda, gel, dextrose or glucagon once per episode. Notify provider if hypoglycemia does not resolve after two treatments. Providers should consider the following: administering longer-acting treatments for the duration of active insulin or hypoglycemia agent for persistent hypoglycemia and re-evaluating active insulin orders before administering the next dose. Or glucagon (Glucagen) (1 mg/mL) injection solution 1 mgJump to med 1 mg, Intramuscular, EVERY 15 MIN PRN, Starting on 11/08/23 at 1213, Until Fri11/12/23 at 1310, Low blood sugar, For BG 50-70 mg/dL: Oral treatment preferred: If able to drink, give 120 mL juice or regular (not diet) soda OR if NPO, give 15 gram glucose 40% oral gel massaged into buccal mucosa OR if unconscious or uncooperative, give 25 gram (250 mL) dextrose 10% IV over 15 minutes per protocol OR, if no IV access, 1 mg glucagon IM. For BG less than 50 mg/dL: Oral treatment preferred: If able to drink, give 240 mL juice or regular (not diet) soda OR if NPO, give 30 gram glucose 40% oral gel massaged in buccal mucosa OR if unconscious or uncooperative, give 25 gram (250 mL) dextrose 10% IV over 15 minutes per protocol OR, if no IV access, 1 mg glucagon IM. Recheck BG in 15 minutes. May repeat juice/soda, gel, dextrose or glucagon once per episode. Notify provider if hypoglycemia does not resolve after two treatments. Providers should consider the following: administering longer-acting treatments for the duration of active insulin or hypoglycemia agent for persistent hypoglycemia and re-evaluating active insulin orders before administering the next dose. , Routine Group 3: ondansetron (pf) (Zofran) (2 mg/mL) injection 4 mgJump to med 4 mg, Intravenous, EVERY 8 HOURS PRN, Starting on 11/09/23 at 0748, Until Fri11/12/23 at 1310, Nausea, Vomiting Or ondansetron ODT (Zofran-ODT) disintegrating tablet 4 mgJump to med 4 mg, Oral, EVERY 8 HOURS PRN, Starting on 11/09/23 at 0748, Until Fri11/12/23 at 1310, Nausea, Routine documented in this encounter Care Teams Nerve Specialist Relationship Specialty Start Date End Date Bobby Das MD [address] [place] [address] [place] [id number] PCP - General 10/02/10 documented as of this encounter
--- OUTSIDE RECORDS SUMMARY | 2024-09-17 01:29 | XMS_ITS | Encounter Summary ---
Author Organization [facility] Address [facility] [place] [address] Care Team Providers Care Department Supervisor Name Role Phone Bobby Das MD Primary Care Provider [phone] Reason for Referral * Consultation (Urgent) - Closed Specialty Diagnoses / Procedures Referred By Colby quezada Referred To Contact Dermatology Diagnoses Basal cell carcinoma (BCC), unspecified site Bobby Das MD [address] [place] [address] [place] [address] [facility] Dermatology [address] [place] [address] Referral ID Status Reason Start Date Expiration Date V isits Requested Visits Authorized [id number] Closed Consult, Test & Treat PCP Updated and/or Approved 06/12/2023 06/11/2024 6 6 Encounter Details Date Type Department Care Team (Latest Contact Info) Description 06/12/2023 Transcribe Orders eDH Incoming Referrals [phone] Bobby Das MD [address] [place] [address] [place] [phone] Basal cell carcinoma (BCC), unspecified site Social History Tobacco Use Types Packs/Day Years [...] Associated Diagnoses Orde r Schedule Referral to Dermatology Outpatient Referral Urgent Basal cell carcinoma (BCC), unspecified site Ordered: 06/12/2023 documented as of this encounter Visit Diagnoses Diagnosis Basal cell carcinoma (BCC), unspecified site documented in this encounter Care Teams Department Supervisor Relationship Specialty Start Date End Date Bobby Das MD [address] [place] [address] [place] [phone] PCP - General 10/02/10 documented as of this encounter
--- OUTSIDE RECORDS SUMMARY | 2024-09-17 01:29 | XMS_ITS | Encounter Summary ---
Author Organization [facility] Address [facility] [place] [address] Care Team Providers Care Channel Supervisor Name Role Phone Bobby Das MD Primary Care Provider [phone] Encounter Details Date Type Department Care Team (Late st Contact Info) Description 10/30/2023 Orders Only Cardiology at [address] [address] Christian Figueroa MD [facility] [place] [address] Atrial fibrillation, unspecified type Social History Tobacco Use Types Packs/Day Years Used Date Smoking Tobacco: Former Cigarettes 0.5 50 0 05/15/1972 - 05/15/2022 Smokeless Tobacco: Never Alcohol Use Standard Drinks/Week Comments Yes 42 (1 standard drink = 0.6 oz pu re alcohol) Last alcohol use in May 2022 [facility] Utilities Answer Date Recorded In the past 12 months has [employer] electric, gas, oil, or water company threatened [...] in a penitentiary (including now)? No 11/08/2023 [facility] IPV Inpatient [...] as of this encounter Progress Notes * Loretta Rodriguez RN - 10/30/2023 8:43 AM EST documented in this encounter Plan of Treatment Not on file documented as of this encounter Visit Diagnoses Diagnosis Atrial fibrillation, unspecified type documented in this encounter Care Teams Channel Supervisor Relationship Specialty Start Date End Date Bobby Das MD [address] [place] [address] [place] [address] PCP - General 10/02/10 documented as of this encounter
--- OUTSIDE RECORDS SUMMARY | 2024-09-17 01:29 | XMS_ITS | Encounter Summary ---
Author Organization [facility] Address [facility] [place] [address] Care Team Providers Care Chainstitch Zipper Setter Name Role Phone Bobby Das MD Primary Care Provider [phone] Reason for Visit * Reason Comments Medication Refill Encounter Details Date Type Department Care Team (Late st Contact Info) Description 04/11/2023 Refill [place] [address] Augustin Lou MD [facility] HEMATOLOGY/[place] [address] Social History Tobacco Use Types Packs/Day Years [...] on filedocumented in this encounter Care Teams Chainstitch Zipper Setter Relationship Specialty Start Date End Date Bobby Das MD [address] [place] [address] [place] [phone] PCP - General 10/02/10 documented as of this encounter
--- OUTSIDE RECORDS SUMMARY | 2024-09-17 01:29 | XMS_ITS | Encounter Summary ---
Author Organization [facility] Address [facility] [place] [address] Care Team Providers Care Child Guidance Counselor Name Role Phone Bobby Das MD Primary Care Provider [phone] Encounter Details Date Type Department Care Team (Late st Contact Info) Description 10/24/2023 Orders Only Cardiology at [address] [address] Christian Figueroa MD [facility] [place] [address] Atrial fibrillation, unspecified type (Primary Dx) Social History Tobacco Use Types Packs/Day Years Used Date Smoking Tobacco: Former Cigarettes 0.5 50 0 05/15/1972 - 05/15/2022 Smokeless Tobacco: Never Alcohol Use Standard Drinks/Week Comments Yes 42 (1 standard drink = 0.6 oz pu re alcohol) Last alcohol use in May 2022 [facility] Utilities Answer Date Recorded In the past 12 months has [employer] electric, gas, oil, or water company threatened [...] encounter Visit Diagnoses Diagnosis Atrial fibrillation, unspecified type- Primary documented in this encounter Care Teams Child Guidance Counselor Relationship Specialty Start Date End Date Bobby Das MD [address] [place] [address] [place] [phone] PCP - General 10/02/10 documented as of this encounter
--- OUTSIDE RECORDS SUMMARY | 2024-09-17 01:29 | XMS_ITS | Encounter Summary ---
Author Organization [facility] [place] [address] Care Team Providers Care Photographers' Model Name Role Phone Bobby Das MD Primary Care Provider [phone] Encounter Details Date Type Department Care Team (Late st Contact Info) Description 10/24/2023 Notes Only Cardiology at [address] [address] Loretta Rodriguez RN Social History Tobacco Use Types Packs/Day [...] Progress Notes * Loretta Rodriguez RN - 10/24/2023 1:34 PM EST Spoke with pt. To schedule LAAO. He accepted 11/06 as a procedure date. Pre and post education reviewed. He verbalized understanding. Stopping eliquis Friday prior to procedure. documented in this encounter Plan of Treatment Not on file documented as of this encounter Visit Diagnoses Not on filedocumented in this encounter Care Teams Photographers' Model Relationship Specialty Start Date End Date Bobby Das MD [address] [place] [address] [place] [phone] PCP - General 10/02/10 documented as of this encounter
--- OUTSIDE RECORDS SUMMARY | 2024-09-17 01:29 | XMS_ITS | Encounter Summary ---
Author Organization [facility] Address [facility] [place] [address] Care Team Providers Care Washing And Screening Plant Supervisor Name Role Phone Bobby Das MD Primary Care Provider [phone] Reason for Visit * Reason Comments Medication Refill Encounter Details Date Type Department Care Team (Late st Contact Info) Description 05/30/2023 Refill [place] [address] Nasrin Parra PA [facility] [place] [address] Social History Tobacco Use Types Packs/Day Years [...] on filedocumented in this encounter Care Teams Washing And Screening Plant Supervisor Relationship Specialty Start Date End Date Bobby Das MD [address] [place] [address] [place] [phone] PCP - General 10/02/10 documented as of this encounter
--- OUTSIDE RECORDS SUMMARY | 2024-09-17 01:29 | XMS_ITS | Encounter Summary ---
Author Organization [facility] Address [facility] [place] [address] Care Team Providers Care Public Relations Analyst Name Role Phone Bobby Das MD Primary Care Provider Encounter Details Date Type Department Care Team (Late st Contact Info) Description 10/31/2023 Telephone [place] [address] Alan August MD [facility] [place] [address] Social History Tobacco Use Types Packs/Day Years [...] encounter Miscellaneous Notes * Telephone Encounter - Alan August MD - 10/31/2023 4:01 PM EST Called and spoke with Mr. Zamora about his concerns with the prior scopes that he received. He reports that ever since his EGD in June 2022, he has had some unusual dysphagia, having to turn his head and neck in unusual ways to be able to swallow. I apologized for this concern, and explained why we wanted to have him back in GI, namely to followup on the polyps that were left behind (in the setting of GIB), and also now for his new concern with dysphagia. I think it makes the most sense to have him seen sometime in the next few months to followup on howhe is doing after his watchman device, and to address these 2 concerns. Please put him in attendingclinic. Alan August MD, PGY-6 Gastroenterology and Hepatology Fellow documented in this encounter Plan of Treatment Not on file documented as of this encounter Visit Diagnoses Not on filedocumented in this encounter Care Teams Public Relations Analyst Relationship Specialty Start Date End Date Bobby Das MD [address] [place] [address] [place] [address] PCP - General 10/02/10 documented as of this encounter
--- OUTSIDE RECORDS SUMMARY | 2024-09-17 01:29 | XMS_ITS | Encounter Summary ---
Author Organization [facility] [address] Care Team Providers Care Medical Imaging Director Name Role Phone Bobby Das MD Primary Care Provider [phone] Encounter Details Date Type Department Care Team (Latest Contact Info) Description 10/21/2023 Travel Social History Tobacco Use Types Packs/Day Years [...] filedocumented in this encounter Care Teams Medical Imaging Director Relationship Specialty Start Date End Date Bobby Das MD [address] [place] [address] [place] [address] PCP - General 10/02/10 documented as of this encounter
--- OUTSIDE RECORDS SUMMARY | 2024-09-17 01:29 | XMS_ITS | Encounter Summary ---
Author Organization [facility] [place] [address] Care Team Providers Care Equipment Planner Name Role Phone Bobby Das MD Primary Care Provider [phone] Encounter Details Date Type Department Care Team (Late st Contact Info) Description 10/14/2023 Orders Only Cardiology at [address] [address] Grant Jimenez, RN Social History Tobacco Use [...] filedocumented in this encounter Care Teams Equipment Planner Relationship Specialty Start Date End Date Bobby Das MD [address] [place] [address] [place] [phone] PCP - General 10/02/10 documented as of this encounter
--- OUTSIDE RECORDS SUMMARY | 2024-09-17 01:29 | XMS_ITS | Encounter Summary ---
Author Organization [facility] Address [facility] [place] [address] Care Team Providers Care Comb Setter Name Role Phone Bobby Das MD Primary Care Provider [phone] Reason for Visit * Consultation (Routine) - Closed Specialty Diagnoses / Procedures Referred By Contac t Referred To Contact Cardiology Diagnoses Chronic atrial fibrillation, unspecified Cardiomyopathy, unspecified Atherosclerotic heart disease of [place] coronary artery without angina pectoris STRUCTURAL CARD Permanent afib, significant GI bleed, EF 30-35%- pt wants to discuss Watchman, willing to discuss ICD. Ifrah Tellez MD [address] [place] [id number] [place] [address] [address] [place] [phone] Referral ID Status Reason Start Date Expiration Date V isits Requested Visits Authorized [id number] Closed Consult, Test & Treat PCP Updated and/or Approved 10/06/2023 04/03/2024 6 6 Encounter Details Date Type Department Care Team (Late st Contact Info) Description 10/22/2023 2:20 PM EST Office Visit Cardiology at [address] [phone] Christian Figueroa MD [facility] [place] [address] Permanent atrial fibrillation Social History Tobacco Use Types Packs/Day Years [...] Sign Reading Time Taken Comments Blood Pressure 98/52 10/22/2023 2:09 PM EST Pulse 40 10/22/2023 2:09 PM EST Temperature - - Respiratory Rate - - Oxygen Saturation 99% 10/22/2023 2:09 PM EST Inhaled Oxygen Concentration - - Weight 72.6 kg (160 lb) 10/22/2023 2:09 PM EST Height 167.6 cm (5' 6) 10/22/2023 2:09 PM EST Body Mass Index 25.82 10/22/2023 2:09 PM EST documented in this encounter Progress Notes * Christian Figueroa MD - 10/22/2023 2:20 PM EST 83 yo Male with history of permament AF at high stroke risk and history of GIB who is referred by Ifrah Tellez MD for LAAO Focused Problem List Heart Failure (HFrEF) AF with RVR MVP s/p Repair 2000 DM Vasc DZ AF Long standing TTE 09/05/2022 Left ventricular ejection fraction is estimated visually at 30%, with global hypokinesis. Right ventricular systolic function is mildly decreased. The peak right ventricular systolic pressure is 31 mmHg. There is moderate aortic stenosis by technically challenging Doppler evaluation. The mean gradient across the aortic valve is 15 mmHg. The aortic valve area calculated using the continuity equation is 1.4 cm2. S/P mitral valve repair. The estimated mean gradient across the mitral valve is 5 mmHg. Heart rate: 82-90 beats per minute. There is trace mitral regurgitation. There is mild to moderate tricuspid regurgitation. See report for additional findings. Compared to the TTE performed 05/16/22, findings are overall similar. GI Bleed 12/12/2022 06/25/2022 Upper Endoscopy Non-bleed angioectasia (Single - Duodenum), Single Jejunum Lower endoscopy Poly x1 Angioectasia CAD s/p stenting OM with ALE 2 flow Treated with PCI-stent PVACDZ LLE ACLI s/p embolectomy with 4 compartment asciotomy DM II Metformin 160-180 Rarely <120 Frequently >180 Right Knee Trauma (1 week ago) Occurred while moving microwave Aortic Stenosis Moderate Grade NCDR Registry Data Type Permanent AF Hx of Cardioversion: No Anti-Arrhythmics: No Sleep Apnea: No [id number] 4 (CHF 1, Age 2, Vasc 1, thromboembolism to the lower extremities) HAS-BLED 3 ( >65 yrs, Plaivix 1, EtOH >8 drinks/week) LASHAY-C Rationale: Hx of GI Bleed Anti Coagulation Hx: Apixaban Cardiac ROS: Patient specifically denies symptoms consistent with right or left ventricular failure. Palpitations, pre-syncope or syncope. Angina or anginal equivalents. 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 There is a normal S1 followed by a physiologically split S2 without, S3, S4, pathologic rub or murmur. Abdomen: Flat, non-tender without palpable liver, spleen or masses LE: Without edema, with good distal pulses Neuro: Non-Focal Assessment & Plan 83 yo male with Permanent AF with history of GIB . Using SDM I outlined to the patient along with his he rationale for LASHAY-C In addition, I reviewed the procedural risk including access site bleeding requiring blood transfusion and/or surgery, ODESSA, Stroke, cardiac perforation requiring percutaneous drainage and/or emergent 'open heart' surgery and device embolization requiring 'open heart' and/or 'open belly' surgery. The patient and his appear to understand and wish to proceed. Schedule LASHAY-C Screen on the table On Apixaban hold for procedure Last Dose Friday PM prior to procedure Appropriate for same day procedure F/U imaging BRITNEY or Cardiac CT Christian Figueroa M.D., F.A.C.C. dress cutter Pager [phone] documented in this encounter Plan of Treatment Scheduled Referrals Name Type Priority Associated Diagnoses Orde r Schedule Referral to Cardiology Outpatient Referral Routine Routine general medical examination at a health care facility Ordered: 10/10/2023 documented as of this encounter Visit Diagnoses Diagnosis Permanent atrial fibrillation Atrial fibrillation documented in this encounter Care Teams Comb Setter Relationship Specialty Start Date End Date Bobby Das MD [address] [place] [address] [place] [address] PCP - General 10/02/10 documented as of this encounter
--- OUTSIDE RECORDS SUMMARY | 2024-09-17 01:29 | XMS_ITS | Encounter Summary ---
Author Organization [place] [address] Care Team Providers Care Machine Design Teacher Name Role Phone Bobby Das MD Primary Care Provider [phone] Reason for Referral * Consultation (Routine) - Closed Specialty Diagnoses / Procedures Referred By Contac t Referred To Contact Cardiology Diagnoses Chronic atrial fibrillation, unspecified Cardiomyopathy, unspecified Atherosclerotic heart disease of [place] coronary artery without angina pectoris STRUCTURAL CARD Permanent afib, significant GI bleed, EF 30-35%- pt wants to discuss Watchman, willing to discuss ICD. Ifrah Tellez MD [address] [place] [id number] [place] [address] [place] [phone] Referral ID Status Reason Start Date Expiration Date V isits Requested Visits Authorized [id number] Closed Consult, Test & Treat PCP Updated and/or Approved 10/06/2023 04/03/2024 6 6 Encounter Details Date Type Department Care Team (Latest Contact Info) Description 10/10/2023 Transcribe Orders eD Incoming Referrals [phone] Ifrah Tellez MD Routine general medical examination at a health care facility Social History Tobacco Use Types Packs/Day Years [...] as of this encounter Visit Diagnoses Diagnosis Routine general medical examination at a health care facility documented in this encounter Care Teams Machine Design Teacher Relationship Specialty Start Date End Date Bobby Das MD [address] [place] [address] [place] [address] PCP - General 10/02/10 documented as of this encounter
--- OUTSIDE RECORDS SUMMARY | 2024-09-17 01:29 | XMS_ITS | Encounter Summary ---
Author Organization [facility] [place] [address] Care Team Providers Care General Expeditor Name Role Phone Bobby Das MD Primary Care Provider [phone] Encounter Details Date Type Department Care Team (Latest Contact Info) Description 07/21/2023 Travel Social History Tobacco Use Types Packs/Day [...] on filedocumented in this encounter Care Teams General Expeditor Relationship Specialty Start Date End Date Bobby Das MD [address] [place] [address] [place] [address] PCP - General 10/02/10 documented as of this encounter
--- OUTSIDE RECORDS SUMMARY | 2024-09-17 01:30 | XMS_ITS | Encounter Summary ---
Author Organization [facility] Address [facility] [place] [address] Care Team Providers Care Res Counselor Name Role Phone Bobby Das MD Primary Care Provider [phone] Encounter Details Date Type Department Care Team (Late st Contact Info) Description 12/08/2022 Telephone [place] [address] Isi Celaya MD [facility] [place] [address] Social History Tobacco Use Types Packs/Day Years [...] encounter Miscellaneous Notes * Telephone Encounter - Isi Celaya MD - 12/08/2022 10:04 AM EST Images from the original note were not included. DIVISION OF GASTROENTEROLOGY & HEPATOLOGY [facility] CALL Name: Koko Zamora Date: 12/08/2022 Time: 10:04 AM Referring Location: Referring Provider: [facility] 82yo M w/PMH of remote mitral valve repair (2000), prediabetes, hyperlipidemia, significant alcoholuse, and tobacco use, admitted in summer 2021 to??Vascular Surgery w/acute LLE limb ischemia for which he underwent left femoral cutdown with thromboembolectomy, and HFrEF, currently on ASA plavix(necessary iso AMPARO) and rivaroxaban (Afib, leg thrombosis), who presented to OSH w/recurrent symptomatic anemia. Notes that he is having BRBPR and knows when it's real. Per team, no light-headedness or dizziness and hemodynamically stable. Per team as well, needs to be on this triple therapy regimen until May 2023 (?) - though ASA not on active medication list so suspect he might just be on plavix and xarelto.He is receiving 1 unit pRBCS. Anesthesia and surgery hesitant to perform endoscopy iso his comorbidities. Vitals: HR 80 BP 103/80 Spo2 100% T 36.5 Labs: Hgb 7.9 (was 9.3 on 11/08) EGD 06/2022: Impression: ?- Normal esophagus. ?- Normal stomach. ?- A single non-bleeding ?Angioectasia in the duodenum. ?Treated with argon beam coagulation. ?- Four non-bleeding angioectasias ?in the proximal jejunum. Treated ?with argon beam coagulation. ?- No specimens collected. Colonoscopy 06/2022: Impression: ?- The examined portion of the ileum ?was normal. ?- Two small polyps in the sigmoid ?colon and in the transverse colon. ?Resection not attempted in the ?context of recent GI bleeding and ?antiplatelet use. 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 Treated with argon ?beam coagulation. Clip was placed. ?- No specimens collected Given the above, certainly warrants endoscopic evaluation. Could be the AVM noted previously in therectum vs AVM further in small bowel. The BRB seems to suggest a more distal process in lower GI tract. [facility] is uncomfortable with proceeding with scope given his comorbidities and prefers he transfer here for this evaluation. He was accepted as transfer to our [facility]. Discussed supportive care with pRBCs as they are, trending H/H and considering timing of colonoscopy. Will need to determine based on Hgb and vitals, as well as further hx from patient when he gets here when we would perform procedure (likely colonoscopy) which would require prep. Addn reccs pending evaluation of patient. This is not an official consult, as my recommendations are limited by my inability to interview andexamine the patient as well as personally review the medical record, imaging, and laboratory findings. Isi Celaya MD PGY-4, Gastroenterology documented in this encounter Plan of Treatment Not on file documented as of this encounter Visit Diagnoses Not on filedocumented in this encounter Care Teams Res Counselor Relationship Specialty Start Date End Date Bobby Das MD [address] [place] [address] [place] [phone] PCP - General 10/02/10 documented as of this encounter
--- OUTSIDE RECORDS SUMMARY | 2024-09-17 01:30 | XMS_ITS | Encounter Summary ---
Author Organization [facility] [place] [address] Care Team Providers Care Wildland Fire Operations Specialist Name Role Phone Bobby Das MD Primary Care Provider [phone] Encounter Details Date Type Department Care Team (Latest Contact Info) Description 10/02/2022 Travel Social History Tobacco Use Types Packs/Day [...] in this encounter Care Teams Wildland Fire Operations Specialist Relationship Specialty Start Date End Date Bobby Das MD [address] [place] [address] [place] [address] PCP - General 10/02/10 documented as of this encounter
--- OUTSIDE RECORDS SUMMARY | 2024-09-17 01:30 | XMS_ITS | Encounter Summary ---
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 Dermatologic Surgery Post-Operative Follow Up Visit Patient: Koko Zamora Today's Date: 10/16/2022 Date of : 1940 Chief complaint: Wound check History of Present Illness: Koko Zamora is a 82 y.o. male presents today for status post Mohs micrographic surgery for: Site #1 Tumor type: Basal Cell Carcinoma Site: Right Eyebrow Repair: Early Transposition Flap Surgery date: 10/02/2022 Site # 2 Tumor type: Basal Cell Carcinoma Site: Right Nasal Ala Repair: Full Thickness Ski Graft Surgery date: 10/02/2022 Today, the patient reports I had bleeding on the way home and went to the [facility] Emergency Patient I put vaseline on it for a few days Examination: Focused examination performed of the surgical site. This reveals overlying crust on the right nasalala.Right Eyebrow healing well. Assessment: 1. Normal healing post-surgical site without any signs/symptoms of infection. Plan: 1. Sutures Removed 2. Continue Vaseline to the nose for 5 more days covering with Spot bandaid. 3. Follow-up as needed. Note initiated by GWEN CACERES LPN has performed the documentation for this encounter in the presence of and acting as a scribe for Dr. Lynn I performed the above scribed service and agree with the accuracy of the documentation in this encounter. 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
--- OUTSIDE RECORDS SUMMARY | 2024-09-17 01:30 | XMS_ITS | Encounter Summary ---
Author Organization [facility] Address [facility] [place] [address] Care Team Providers Care Microsoft Dynamics Developer Name Role Phone Bobby Das MD Primary Care Provider [phone] Encounter Details Date Type Department Care Team (Latest Contact Info) Description 10/02/2022 7:45 AM EST Clinical Support Dermatology at [address] [address] Jace Lynn MD [facility] [place] [address] Basal cell carcinoma (BCC) of eyebrow Social History Tobacco Use Types Packs/Day Years [...] as of this encounter Progress Notes * Gabriel Evans CMA - 10/02/2022 7:45 AM EST Mohs consultation and preoperative note (H&P) Patient Name: Koko Zamora Age: 82 y.o. Date of : 1940 Today's Date: 10/02/2022 REFERRING PROVIDER: No ref. provider found CC: Mohs micrographic surgery for treatment of a cutaneous tumor HPI: Koko Zamora is a 82 y.o. male presenting for biopsy-proven basal cell carcinoma, nodular location on the right lateral eyebrow. The dermatologic preoperative information sheet was reviewed withpertinent positive and negative as below. DERMATOLOGIC PRE-OPERATIVE EVALUATION AND REVIEW OF SYSTEMS History of Mohs surgery? yes If yes, have you ever had Mohs surgery with Dr. Lynn? no Pacemaker/Defibrillator? no Joint replacement or other implantable devices (e.g. Cochlear implant)? If yes then when? no Do you take a blood thinner? Yes Plavix (clopidogrel)/ Xarelto History of organ transplant? no History of artificial valve or stroke? no History of liver disease or bleeding disorder? Was receiving blood transfusions 3 weeks ago, RBC has been stable at 9 per patient Do you have any medical problems that may affect your upcoming surgery? no Do you have any concerns regarding your upcoming surgery? no We ask patients to discontinue Fish oil/Multivitamin/Vit E/?? supplements and natural medicines not prescribed by a physician 1 week prior to surgery. SOCIAL HISTORY: Makes Own Decisions Yes Hearing aid or other devices: No Relevant travel history or future plans: none Tobacco use (amount per day, type of tobacco): no Do you have any physical limitations that may affect your surgery?: no ALLERGIES: Allergies reviewed MEDICATIONS: Medications reviewed documented in this encounter Plan of Treatment Not on file documented as of this encounter Visit Diagnoses Diagnosis Basal cell carcinoma (BCC) of eyebrow documented in this encounter Care Teams Microsoft Dynamics Developer Relationship Specialty Start Date End Date Bobby Das MD [address] [place] [address] [place] [phone] PCP - General 10/02/10 documented as of this encounter
--- OUTSIDE RECORDS SUMMARY | 2024-09-17 01:30 | XMS_ITS | Encounter Summary ---
Author Organization [facility] Address [facility] [address] Care Team Providers Care Brick Veneer Maker Name Role Phone Bobby Das MD Primary Care Provider [phone] Encounter Details Date Type Department Care Team (Late st Contact Info) Description 08/15/2022 Telephone [place] [address] Isi Celaya MD [facility] [place] [address] Social History Tobacco Use Types Packs/Day Years [...] Telephone Encounter - Isi Celaya MD - 08/15/2022 5:50 PM EDT Images from the original note were not included. DIVISION OF GASTROENTEROLOGY & HEPATOLOGY [facility] CALL Name: Koko Zamora Date: 08/15/2022 Time: 5:51 PM Referring Location: [facility] Mr. Zamora is a 81yo M w/PMH of remote mitral valve repair (2000), prediabetes, hyperlipidemia, significant alcohol use, and tobacco use w/recent admission to Vascular Surgery service over the summer with acute LLE limb ischemia for which he underwent left femoral cutdown with thromboembolectomy, and HFrEF, currently on plavix (necessary iso AMPARO) and rivaroxaban (Afib, leg thrombosis), who presented to OSH w/recurrent symptomatic anemia. He presented today to [facility] w/3 weeks SOB, generalized fatigue and weakness. He has not noticed any changes in his stool, no dark tarry stools or emesis, no abdominal pain, no nausea or vomiting. No light-headedness or dizziness. He is guaiac + and Hgb is 4.9 there. Plan is to get 2units now w/recheck and to admit to the hospital. Vitals: BP 98/52, HR 82, 95% on RA afebrile Recent procedures at [facility]: - 05/31 EGD: angioectasias in duodenum, tx w/argon beam coag - 06/25 [facility]O: single bleeding colonic angioectasia treated with argon beam coagulation, clip placed - 06/25 EGD: single non-bleeding angioectasia in duodenum, treated with argon beam coagulation; fournon-bleeding angioectasias in proximal jejunum treated with argon beam coagulation I discussed that given no signs or sx of active bleeding, reasonable to admit, transfuse as needed,and give IV PPI BID overnight. Pending his Hgb is stable and at least above 7 tomorrow, as well as hemodynamically stable with improving BP, could consider repeating a here and back similar to June(though of course do not like to consider these in the setting of active bleeding). They will plan to recheck Hgb and if improving, will try to prep him overnight. I said we would check in in the AM for definitive plan. Highest suspicion is re-bleeding of known AVMs in either colon or small bowel. However, given the tempo and course of sx over 3 weeks without any overt signs of GI bleeding, it ispossible we might not see anything, in which case we might need to consider VCE as well. This is not an official consult, as my recommendations are limited by my inability to interview andexamine the patient as well as personally review the medical record, imaging, and laboratory findings. Isi Celaya MD PGY-4, Gastroenterology documented in this encounter Plan of Treatment Not on file documented as of this encounter Visit Diagnoses Not on filedocumented in this encounter Care Teams Brick Veneer Maker Relationship Specialty Start Date End Date Bobby Das MD [address] [place] [address] [place] [address] PCP - General 10/02/10 documented as of this encounter
--- OUTSIDE RECORDS SUMMARY | 2024-09-17 01:30 | XMS_ITS | Encounter Summary ---
Author Organization [facility] [place] [address] Care Team Providers Care Pig Machine Crane Operator Name Role Phone Abby Das MD Primary Care Provider [phone] Encounter Details Date Type Department Care Team (Late st Contact Info) Description 06/25/2022 11:01 AM EDT Anesthesia [place] [address] Abby Aguilar MD [facility] [place] [address] David Gill CRNA [facility] [place] [address] Anesthesia Record Procedure Summary Procedure Name Responsible Anesthesiologist Anesthesia Start Time Anesthesia Stop Time EGD, UPPER GI ENDOSCOPY (WRVU 2.09) (Trunk) Abby Aguilar MD 06/25/22 1101 06/25/22 1202 Events Date Time Event Comment 06/25/2022 1101 AN Verify 1101 Start 1101 An Start Data 1106 An Induction 1106 Anesthesia Ready 1155 1202 an stop data 1202 Recovery or ICU Handoff Lorie ent care was transferred to the destination unit staff after review of the patient's medical history, current anesthetic/surgical status and plan, according to the Provider Handoff Checklist. 1202 Stop Meds Name Total Propofol 90 mg Propofol INF 350.2 mg PHENYLephrine 640 mcg Lactated Ringers 500 mL * Agents Name O2 Auxiliary Flowmeter 1 * Blood No blood administrations on file. Lines, Drains, and Airways Type Details Placement Removal Incision 07/20/19; 1020; back ; laparoscopic puncture; biopsy site; 07/08/22 (LDA cleanup utility RA#[id number]); 1715 (LDA cleanup utility RA#[id number]) 07/20/19 1020 by Fay Martínez RN 07/08/22 1715 by Bro Richter Incision 07/20/19; 1034; back ; laparoscopic puncture; vertbroplasty site; 07/08/22 (LDA cleanup utility RA#[id number]); 1715 (LDA cleanup utility RA#[id number]) 07/20/19 1034 by Fay Martínez RN 07/08/22 1715 by Bro Richter Incision 10/25/20; 0912; thor acic spine; non-laparascopic puncture; vertebroplasty site; 07/08/22 (LDA cleanup utility RA#[id number]); 1715 (LDA cleanup utility RA#[id number]) 10/25/20 0912 by Keisha Vargas RN 07/08/22 1715 by Bro Richter Incision 05/15/22; 1408; Left ; groin; LDA not present upon assessment; 12/08/22; 17405/15/22 1408 by Jaylene Herring RN 12/08/22 1741 by Margy Knapp Incision 05/15/22; 1526; Left , lateral, lower; leg; LDA not present upon assessment; 12/08/22; 17405/15/22 1526 by Jaylene Herring RN 12/08/22 1741 by Margy Knapp Incision 05/15/22; 1527; Left , medial, lower; leg; LDA not present upon assessment; 12/08/22; 17405/15/22 1527 by Jaylene Herring RN 12/08/22 1741 by Margy Knapp (RETIRED) Peripheral IV Line - Single Lumen 06/25/22; 1046; median cubital vein (antecubital fossa), left; [id number] catheter system; 18 gauge; Present on admission; LDA not present upon assessment; 12/08/22; 17406/25/22 1046 by Mame Peterson RN 12/08/22 1742 by Margy Knapp (RETIRED) Peripheral IV Line - Single Lumen 06/25/22; 1046; great saphenous vein (medial side of leg), right; [id number] catheter system; Anatomical Landmarks; 18 gauge; Present on admission; 12/08/22; 1741 06/25/22 1046 by Mame Peterson RN 12/08/22 1741 by Margy Knapp documented in this encounter Social History Tobacco [...] documented as of this encounter OR Notes * Anesthesia Postprocedure Evaluation - Abby Aguilar MD - 06/25/2022 1:31 PM EDT Department of Anesthesiology Post-procedure Note Patient: Koko Zamora Procedure Summary Date: 06/25/22 Room / Location: [facility] ENDO 4 / [facility] ENDOSCOPY Anesthesia Start: 1101 Anesthesia Stop: 1202 Procedures: EGD, UPPER GI ENDOSCOPY (N/A Trunk) COLONOSCOPY; W CONTROL OF BLEEDING, ANY METHOD (N/A Trunk) SMALL BOWEL ENTEROSCOPY (N/A Trunk) Diagnosis: (melena +./-) Surgeons: Giovani Ponce MD Responsible Provider: Abby Aguilar MD Anesthesia Type: MAC ASA Status: 3 All Anesthesia Providers: Anesthesiologist: Abby Aguilar MD DEVELOPMENT EXPERT: David Gill CRNA Vitals Value Taken Time BP 102/85 06/25/22 1240 Temp Pulse Resp 16 06/25/22 1220 SpO2 95 % 06/25/22 1245 Pain Level 0 06/25/22 1220 Vitals shown include unvalidated device data. Patient Location: PACU/SDP Level of Consciousness: Awake and Alert Pain Management: Satisfactory Analgesia PONV: None Cardiovascular Status: At Baseline and Hemodynamically Stable Respiratory Status: At Baseline and Room Air Postoperative Fluid Status: Intravascular EUvolemia Possible Anesthetic Complications: NONE apparent at time of evaluation Final Primary Anesthesia Type: MAC (The anesthetic type performed was the same as planned.) Comments: ABBY AGUILAR MD * Anesthesia Preprocedure Evaluation - Abby Aguilar MD - 06/25/2022 10:52 AM EDT Pre-Anesthesia Evaluation for: Koko Zamora a 81 y.o. male. Procedure(s): EGD, UPPER GI ENDOSCOPY COLONOSCOPY, DIAGNOSTIC Patient Active Problem List Diagnosis Date Noted ??? 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 HFrEF (heart failure with reduced ejection [...] IR Biopsy Spine 07/20/2019 Abby Marshall MD [facility] INTERVENTIONL RAD ??? IR VERTEBROPLASTY LUMBAR MULTIPLE LEVELS 07/20/2019 IR Vertebroplasty Lumbar Multiple Levels 07/20/2019 Abby Marshall [facility] ??? PRO UPPER GI ENDOSCOPY, CTRL BLEED 05/31/2022 EGD, W CONTROL OF BLEEDING, ANY METHOD performed by Giovani Ponce MD at [facility] ENDOSCOPY ??? PRO UPPER GI ENDOSCOPY, DIAGNOSTIC N/A 05/31/2022 EGD, UPPER GI ENDOSCOPY performed by Giovani Ponce MD at [facility] ENDOSCOPY Social History Tobacco Use ??? [...] with EGD and ablation with continued anemia and melana for repeat EGD and colo. Transferred from OSH where he received 2 units pRBC's. PMH of remote mitral valve repair (2000), prediabetes, [...] risks discussed with patient. Plan discussed with DEVELOPMENT EXPERT. Anesthesia Screening documented in this encounter Plan of Treatment Not on file documented as of this encounter Visit Diagnoses Not on filedocumented in this encounter Administered Medications Inactive Administered Medications - up to 3 most recent administrations Medication Order MAR Action Action Date Dose Rate Site lactated ringers infusion Intravenous, CONTINUOUS PRN, Starting on Fri06/25/22 at 1101, Until Fri06/25/22 at 1202, Anesthesia Intra-op New Bag 06/25/2022 11:01 AM EDT PHENYLephrine in NS (PF) (MARLEN-SYNEPHRINE) 0.8 mg/10 mL (80 mcg/mL) multi-dose injection Syrg Intravenous, PRN, Starting on Fri06/25/22 at 1117, Until Fri06/25/22 at 1202, Anesthesia Intra-op, Routine Given 06/25/2022 11:54 AM EDT 80 mcg Given 06/25/2022 11:50 AM EDT 80 mcg Given 06/25/2022 11:44 AM EDT 80 mcg propofoL (Diprivan) (10 mg/mL) infusion Intravenous, CONTINUOUS PRN, Starting on Fri06/25/22 at 1106, Until Fri06/25/22 at 1202, Anesthesia Intra-op, Routine Rate/Dose Change 06/25/2022 11:37 AM EDT 70 mcg/kg/min 31.836 mL/hr Rate/Dose Change 06/25/2022 11:33 AM EDT 80 mcg/kg/min 36. 384 mL/hr Rate/Dose Change 06/25/2022 11:10 AM EDT 100 mcg/kg/min 45 .48 mL/hr propofoL (Diprivan) 10 mg/mL bolus injection (Anesthesia) Intravenous, PRN, Starting on Fri06/25/22 at 1106, Until Fri06/25/22 at 1202, Anesthesia Intra-op Given 06/25/2022 11:09 AM EDT 20 mg Given 06/25/2022 11:08 AM EDT 20 mg Given 06/25/2022 11:06 AM EDT 50 mg documented in this encounter Care Teams Pig Machine Crane Operator Relationship Specialty Start Date End Date Abby Das MD [address] [place] [address] [place] [address] PCP - General 10/02/10 documented as of this encounter
--- OUTSIDE RECORDS SUMMARY | 2024-09-17 01:30 | XMS_ITS | Encounter Summary ---
Author Organization [place] [address] Care Team Providers Care Credit Operations Processor Name Role Phone Bobby Das MD Primary Care Provider [phone] Encounter Details Date Type Department Care Team (Late st Contact Info) Description 09/23/2022 Telephone Dermatology at [facility] [address] [place] [id number] Savanah Hubbard CMA Social History Tobacco Use Types Packs/Day Years [...] encounter Miscellaneous Notes * Telephone Encounter - Savanah Hubbard CMA - 09/23/2022 1:49 PM EST Mohs consultation and preoperative note (H&P) Patient Name: Koko Zamora Age: 81 y.o. Date of : 1940 Today's Date: 09/23/2022 REFERRING PROVIDER: No ref. provider found CC: Mohs micrographic surgery for treatment of a cutaneous tumor HPI: Koko Zamora is a 81 y.o. male presenting for biopsy-proven basal cell carcinoma, nodular location on the right lateral eyebrow. The dermatologic preoperative information sheet was reviewed withpertinent positive and negative as below. DERMATOLOGIC PRE-OPERATIVE EVALUATION AND REVIEW OF SYSTEMS History of Mohs surgery? yes If yes, have you ever had Mohs surgery with Dr. Mendenhall? no Pacemaker/Defibrillator? no Joint replacement or other [...] filedocumented in this encounter Care Teams Credit Operations Processor Relationship Specialty Start Date End Date Bobby Das MD [address] [place] [address] [place] [phone] PCP - General 10/02/10 documented as of this encounter
--- OUTSIDE RECORDS SUMMARY | 2024-09-17 01:30 | XMS_ITS | Encounter Summary ---
Author Organization [facility] [place] [address] Care Team Providers Care Job Change Crew Member Name Role Phone Bobby Das MD Primary Care Provider [phone] Encounter Details Date Type Department Care Team (Late st Contact Info) Description 07/01/2022 Telephone Dermatology at [facility] [address] [place] [phone] Zainab Sommer I, [facility] Social History Tobacco Use Types Packs/Day Years [...] encounter Miscellaneous Notes * Telephone Encounter - Loretta Cohen MD - 07/02/2022 4:34 PM EDT Called Koko today to discuss recent cancellation of mohs surgery. Patient expresses concerns thathe is on blood thinners. We discussed that mohs is performed on patient's while they are on blood thinners and there is no need for them to be discontinued. Koko understands. We discussed risks of not having surgery including continued growth of tumor and progression. Patient would like to reschedule after he is done with cardiac rehab. Will route chart back to scheduling. * Telephone Encounter - Zainab Sommer CMA [...] on filedocumented in this encounter Care Teams Job Change Crew Member Relationship Specialty Start Date End Date Bobby Das MD [address] [place] [address] [place] [address] PCP - General 10/02/10 documented as of this encounter
--- OUTSIDE RECORDS SUMMARY | 2024-09-17 01:30 | XMS_ITS | Encounter Summary ---
Author Organization [facility] [place] [address] Care Team Providers Care E M Assembler Name Role Phone Bobby Das MD Primary Care Provider [phone] Reason for Referral * Consultation (Routine) - Closed Specialty Diagnoses / Procedures Referred By Contact Referred To Contact Electrophysiology / Cardiology Diagnoses HFrEF (heart failure with reduced ejection fraction) EF=30%, poss. ICD vs MANAGER WILLOW-D Alan Reid MD [facility] [place] [address] [facility] [address] [place] [phone] Referral ID Status Reason Start Date Expiration Date V isits Requested Visits Authorized [id number] Closed Consult, Test & Treat 09/05/2022 09/05/2023 1 1 Encounter Details Date Type Department Care Team (Late st Contact Info) Description 09/05/2022 2:00 PM EDT Office Visit Cardiology at [address] [phone] Alan Reid MD [facility] [place] [place] [address] HFrEF (heart failure with reduced ejection fraction); Permanent atrial fibrillation; 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 I am not making any changes to your medications today. I would like you to see a heart rhythm specialist about a possible device for your heart. I will see you back in 6 months. documented in this encounter Progress Notes * Alan Reid MD - 09/05/2022 2:00 PM EDT Images from the original note were not included. [facility] [place] [phone] CARDIOLOGY OUTPATIENT PROGRESS NOTE PRIMARY CARE PROVIDER: Bobby Das MD REFERRING PROVIDER: Bobby Das PROBLEM LIST: Patient Active Problem List Diagnosis ??? 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 Hypertriglyceridemia ??? Adhesive capsulitis of L shoulder ??? Alcohol use MEDICATIONS: Current Outpatient Medications Medication Sig Dispense Refill ??? clopidogreL (Plavix) 75 mg Tablet Take 1 tablet by mouth daily. 90 tablet 3 ??? metoprolol succinate XL (Toprol-XL) 50 mg Tablet Sustained Release 24 hr Take 1 tablet by mouthdaily. (Patient taking differently: Take 25 mg by mouth daily.) 30 tablet 12 ??? tamsulosin (FLOMAX) 0.4 mg Capsule Take 0.4 mg by mouth daily. ??? CRESTOR 40 mg Tablet Take 40 mg by mouth daily. ??? rivaroxaban (Xarelto) 20 mg Tablet Take 1 tablet by mouth daily. 90 tablet 3 ??? acetaminophen (Tylenol) 325 mg Tablet Take 2 tablets by mouth every 6 hours as needed for Pain.(Patient not taking: Reported on 06/13/2022) 30 tablet 1 ??? fluticasone propionate (FLONASE) 50 mcg/actuation [place], Suspension 1 spray by Each Nare route daily as needed. ??? fluorouraciL (EFUDEX) 5 % [...] Take 1 tablet by mouth daily. ??? MULTIVITAMIN (MULTIPLE VITAMIN ORAL) Take 1 tablet by mouth daily. No current facility-administered medications for this visit. Subjective: Patient ID: Koko Zamora is a 81 y.o. patient of Bobby Das MD. HPI: This is a 81-year-old gentleman who has a history of mitral valve repair, coronary artery disease, permanent atrial fibrillation and HFrEF. When I saw him last, we were attempting to optimize his medical therapy after his percutaneous revascularization. We have been limited in what we have been able to deliver. He was already on a beta-norma, he did not tolerate PCSK9 inhibitor, he did not tolerate an ARB and we have not had him on spironolactone. Currently beta- norma monotherapy is his maximally tolerated GDMT. His other issues been GI bleeding. He has required several transfusions. He has been on a combination of clopidogrel and oral anticoagulation because of his concurrent severe peripheral arterial disease and coronary disease. He is now continuing to be highly symptomatic from his LV dysfunction. He has severe dyspnea on exertion. He tells me that 100 feet of ambulation will make markedly short of breath. He has not had any PND orthopnea or pedal edema. He remains euvolemic off of the diuretic. He never really had angina. His coronary disease was discovered because of ischemia screening in the setting of his LV dysfunction. He continues to be free of any significant chest pain. He has no awareness of his atrial fibrillation but he tells me that every time he sees a physician or seen in a medical facility lately as well as his blood pressure and his heart rate been acceptable. At the previous visit he was tachycardic and I added digoxin. This is now been stopped and his beta-norma reduced. With these manipulations after the GI bleed his heart rate is in the 70s. REVIEW OF SYSTEMS: Recent GI bleed Family History: No family history on file. [...] Types: Cigarettes Quit date: 05/15/2022 Years since quittin.3 ??? Smokeless tobacco: Never Used Vaping Use ??? Vaping Use: Never used Substance and Sexual Activity ??? Alcohol use: Yes Alcohol/week: 42.0 standard drinks Types: 42 Cans of beer per week Comment: Last alcohol use in May 2022 ??? Drug use: Not Currently ??? Sexual activity: Not on file Other Topics Concern ??? Not on file Social History Narrative ??? Not on file Social Determinants of Health Financial Resource Strain: Not on file Food Insecurity: Not on file Transportation Needs: Not on file Physical Activity: Not on file Housing Stability: Not on file Objective: PHYSICAL EXAM: BP 108/52 Pulse 74 Ht 175.3 cm (5' 9) Wt 78.7 kg (173 lb 9.6 oz) SpO2 98% BMI 25.64 kg/m?? , Body mass index is 25.64 kg/m??. General: Pleasant. No distress. Skin: Warm and dry. HEENT: Anicteric sclera. Neck: JVP not elevated. No AJR. No carotid bruits. Chest: Clear to auscultation Heart: No heave. Regularly regular rhythm. Normal S1 and S2. No gallops. No murmurs. Abdomen: Nondistended. Soft. Nontender. Extremities: No edema. LAB SCIENTIST: Normal mentation. Psych: Appropriate affect. Labs: Lab [...] 0.71 (L) 06/02/2022 CREATININE 0.78 (L) 06/01/2022 His echocardiogram today shows that his ejection fraction remains 30%. His aortic stenosis is moderate. Assessment and Plan: HFrEF (heart failure with reduced ejection fraction) Treatment of his LV dysfunction has been [...] fraction this is a borderline indication for MANAGER WILLOW-D. Alfred going to set up an appointment with electrophysiology to discuss future device therapy. In the interim I do not have much more medical therapy to offer. Permanent atrial fibrillation His atrial fibrillation is appropriately treated with a beta-norma and oral anticoagulation. If he continues to have significant GI bleeding I would consider referral to structural heart team for awatchman device. He is very high risk for thromboembolic complications. 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 No angina. I am not going to be making any changes. For now given the recent revascularization I feel obligated to continue the clopidogrel. Patient Instructions ??? I am not scheduling you for any testing today. ??? I am not making any changes to your medications today. ??? I would like you to see a heart rhythm specialist about a possible device for your heart. ??? I will see you back in 6 months. Thank you for the opportunity to participate in this patient's cardiovascular care. All questions were answered and I look forward to the next visit. Alan Reid MD A total of 40 minutes were spent on this visit including preparation, record review, time with the patient and documentation. 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 No angina. I am not going to be making any changes. For now given the recent revascularization I feel obligated to continue the clopidogrel. * Assessment & Plan Note - Alan Reid MD - 09/05/2022 2:26 PM EDT Associated Problem(s): Permanent atrial fibrillation His atrial fibrillation is appropriately treated with a beta-norma and oral anticoagulation. If he continues to have significant GI bleeding I would consider referral to structural heart team for awatchman device. He is very high risk for thromboembolic complications. * Assessment & Plan Note - Alan Reid MD - 09/05/2022 2:25 PM EDT Associated Problem(s): HFrEF (heart failure with reduced ejection fraction) Treatment of his LV dysfunction has been [...] fraction this is a borderline indication for MANAGER WILLOW-D. Alfred going to set up an appointment with electrophysiology to discuss future device therapy. In the interim I do not have much more medical therapy to offer. 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
--- OUTSIDE RECORDS SUMMARY | 2024-09-17 01:30 | XMS_ITS | Encounter Summary ---
Author Organization [facility] Address [facility] [place] [address] Care Team Providers Care Linux Unix Engineer Name Role Phone Bobby Das MD Primary Care Provider [phone] Encounter Details Date Type Department Care Team (Latest Contact Info) Description 10/02/2022 8:00 AM EST Procedure visit Dermatology at [address] [id number] [facility] [place] [place] [address] Basal cell carcinoma (BCC) of eyebrow Social [...] documented as of this encounter Patient Instructions * Patient Instructions* Kristin Thompson LPN - 10/02/2022 8:00 AM EST Your staff surgeon today was Jace Lynn MD PHD Your wound(s) was repaired by [id number] stitches called a primary repair. Instructions are as below. Please keep as a reference: After Surgery Avoid tobacco, smoking/vapors, cigars, and cannabis (marijuana) for at least 3 weeks after your surgery. These prevent proper healing and lead to worse scarring. Cutting back on tobacco is helpful ifyou cannot abstain completely. Do not drink alcohol for roughly 3 days as this can slow healing or cause bleeding. Do not participate in athletic activities for 1 week, unless you were told a different timeline during your visit. Athletic activity is a relative term, but this is considered to be anything that could potentially raise your heartrate or blood pressure. Elevating your heart rate and blood pressure increases the risk of swelling, bleeding, wound opening, and it could lead to worse scarring. Walking at a leisurely pace is fine for most people, but not if you are walking for the purpose of exercise. When in doubt, take it easy or call us. Do not lift anything heavier than 10 pounds until your sutures are removed. Some technical training coordinator may need to be delayed or delegated such as vacuuming, mowing the lawn, snow shoveling, or caring for young children that need to be carried/lifted. Working any major muscle groups increases your heart rate and can increasing bleeding. Avoid swimming, hot tubs, and direct water pressure for 3 weeks after surgery. You may shower, however, once your initial bandage comes off in 48 hours. Avoid antibiotic ointments such as triple antibiotic creams. Stick with your wound care instructions, please. Whenever possible, it is helpful to take photographs with your camera or cell phone of any problemsor concerns you see with your wound. We often ask for photos when you call with questions. Starting 2 months following surgery, you can begin firm massage to any areas of firm scar along your incision to soften the scar and reduce bumpiness. Do this 3 times per day, 3 minutes each time. Donot start massage before 2 months. Your wound will appear almost completely healed soon after sutures are removed (about 1 week), but incisions can remain bright red for several weeks. Then the scarring and healing process continues under the skin for 6 months until to 2 years. The scar may become less red, less firm, and more subtle during this time; please note that the rate of improvement varies depending on the person. Most redness, discoloration, bumpiness resolves by 6 months, and most patients will look presentable withina few weeks after surgery. Keep your follow-up appointments and make sure to continue to have your skin checked, as often as is recommended by your ict account manager, for new skin cancers. This is once per year for most patients. Your can expect your scar to be red for several weeks with gradual fading of the redness. Your scarwill also be raised and lumpy until the dissolvable sutures under the skin get absorbed by your body which can take 3-4 months. The scar will flatten eventually. If you have a skin condition called rosacea, the redness can last long-term, or you can get an increased appearance of red vessels to the skin. The appearance of vessels slightly improves, but tends to respond well to laser treatments. Occasionally, about 20% of the time on the face, the stitches under the skin can spit out of the incision to the surface. It can start out looking like a pimple or blemish directly on your incision. Sometimes you can feel something poking through the incision. it can look also minic a small area of infection, so please let us know before you go to another provider for antibiotics. This means that the suture may need to be trimmed or removed when you return for your wound check. This typically occurs a few weeks after surgery if it does occur. To optimize your scar, and best cosmetic result, please avoid direct sunlight to your incision for the first 6 months following surgery. UV ray exposure to your incision may cause the redness to lastlonger, or to cause permanent darkening of your scar. You can avoid sun by covering your incision with a bandage when outdoors, wearing broad-rimmed hats, and wearing SPF 30 to 50 sunscreen (broad spectrum). Sometimes after your sutures are removed, your incision may still be healing for 1 more week. Because of this, avoid make-up and sunscreen until approximately 2 weeks after surgery. You can begin sooner if your skin edges look completely sealed. Any time you have skin surgery or any type of surgery, you can experience mild sensation loss (numbness) in the area of surgery. Massage starting at 8 weeks after surgery can help. Swelling and bruising is common, and expected, especially if your surgery site was on the forehead,cheeks, temples, nose, or eyelids. . Sometimes it [...] 15-20 minutes, 20 minutes off, up to 3-4times daily to areas of swelling on the [...] for as many days as needed until swellinghas resolved. Eyelid and lip swelling is typically the last type of swelling to resolve. Wound Care Gently remove your initial bandage (after 48 hours from surgery). It is normal to have swelling andbruising. Begin wound care as below. If your initial bandage only stayed on for 24 hours (for example, falls off sooner), this is okay. Resume your wound care and bandaging instructions as below. Change your bandage once a day (and whenever it becomes wet or soaks through) for two weeks when your sutures are removed For bandage changes: Wash hands with soap and water, or use gloves that you can purchase at a local pharmacy or drug store. Clean the surgical area with cotton-tipped swabs or soft gauze dipped in soapy water (recommend liquid soap in clean room temperature water). Roll the cotton swab over the incision with soapy water, then with plain water, and then gently pat dry. Do not scrub the area with a washcloth. Do not put direct shower water pressure onto your wound. Do not pick off any scabs. It is okay to allow soapy water to run over your wound in the shower, however. If you cannot remove any bloody or crusted areas, you may soak the area with wet gauze first for 15to 20 minutes to help soften it Pat the area dry with clean gauze or cotton swabs. Do not rub. Use a cotton swab to apply a generous layer of petrolatum over the incision lines and any open-wound areas. Make sure your tube or jar of petrolatum is new or unused to prevent prior contamination from entering your wound. Avoid double dipping. After applying petrolatum, use a clean nonstick gauze or other nonstick dressing, such as Telfa. This may be purchased over the counter at a drug store. Do not use regular gauze as it will stick to your wound and can peel off healing skin with bandage changes. Secure the bandage with paper tape or a bandage. Band-aids are okay, but typically have more adhesive that can irritate the skin compared to paper tape. This can be purchased at a drug store. Continue this wound care daily until stitches are removed in two weeks.I Keep in mind that if you do not want to use a bandage at all due to difficulty, allergies, irritation of skin, cost, time, or inconvenience --- you can certainly avoid bandages altogether. However, it is imperative that you continue with topical petrolatum [...] by your nurse or doctor here: Antibiotics: Keflex 500mg Twice Daily for five days If you were given antibiotic prescription, it is important to start them the evening of your surgery date. However, most patients do not need antibiotics after surgery. For pain: Most patients of different ages do not require pain medications. If you do feel soreness, throbbingor sharp pains, start by taking over the [...] alternate acetaminophen with iburpofen or other NSAID. Ice packs over your bandage without getting your bandage wet can also help with pain and swelling.Frozen peas work well as ice packs. THIS IS AN EXAMPLE OF A PAIN TREATMENT SCHEDULE: 1) You can take 500 mg acetaminophen one tablet by mouth at 6:00pm. This is over the counter. 2) You can take 400 mg of ibuprofen two hours later, at 8:00 pm, or other NSAID such as naproxen, as long as it does not interact with your other medications and your other doctors have not told you to avoid this. This is over the counter. Check to see how many milligrams (mg) each of your ibuprofen tablets are. Most of the time, ibuprofen comes in 200 mg tablets, so 400 mg would mean taking two of these tablets or capsules. 3) You can take 500 mg of acetaminophen at 10:00 pm. Keep track of your total acetaminophen in a 24hour period as your maximum should be 3000 [...] call us. When to call your surgeon: Fever of 100.4 degrees Fahrenheit or higher Bleeding not controlled with direct firm pressure to your wound. Bleeding is most common in the first 48 hours. Pain that is worsening and not relieved by over the counter medications such as acetaminophen (up to 3000 mg in a 24 hour period) Wound reopening after stitching Pus or bad odor from your wound Worsening redness and warmth around your wound If you think your surgery site is infected, please call us before seeking care or antibiotics from other providers Please call us before seeking care in an emergency room or primary care. If you do call, please leave your full name, phone number, date of , date of surgery, and medical record number if you have it. If after hours, please call the explosives operator or [phone] and ask for the ict account manager on-call. If you have any non-urgent questions or concerns, please feel free to call my office or contact me through our patient portal, [facility], at [email or web address] How to contact us during business hours Dermatology at [facility] [address]: Mohs scheduling or Mohs follow-up appointments: [phone] documented in this encounter Progress Notes * Jace Lynn MD - 10/02/2022 8:00 AM EST Images from the original note were not included. Summary of Procedure(s): Site # 1 : Left Lateral Eyebrow Tumor Type: Basal Cell Carcinoma,nodular Stages to clear tumor: One Stage Repair: Miller Transposition Images: Site #2 :Right Nasal Ala Tumor Type: Basal Cell Carcinoma,nodular Stages to clear tumor: One Stage Repair: Full Thickness Skin Graft Images: The patient was asked to call with any issues and is aware that I am available 02/06 should questions arise. Jace Lynn MD PhD Mohs Micrographic Surgery and Dermatologic Oncology Department of Dermatology Please note that I have reviewed the preoperative checklist from today's nursing visit including relevant social history and medications. I have reviewed the preoperative photos if available and the biopsy report. VITAL SIGNS: There were no vitals taken for this visit. PHYSICAL EXAMINATION: General: patient is awake, alert, oriented and in no acute distress. Skin: Focused examination of surgical site(s) performed which shows a well healed biopsy site with surrounding poorly defined pearly plaque with adjacent scar. Right nasal ala with bleeding ulceratedpapule. PHYSICIAN REVIEW OF REPORTS, RECORDS, IMAGES: 1) The accompanying pathology report(s) associated with aforementioned biopsy slide(s) were/was also reviewed. Assessment: Koko Zamora is a 82 y.o. male presenting for: Site # 1 . Biopsy-proven Basal Cell Carcinoma,nodular located on the Right Lateral Eyebrow. Site # 2 . Biopsy-proven Basal Cell Carcinoma,nodular located on the Right Ala. Plan: 1. Findings from the biopsy report, today's clinical exam, and other pertinent details were reviewed with patient today. All questions were answered. 2. Discussed treatment options based on the above findings. We recommended Mohs micrographic surgery for treatment of this tumor. Mohs micrographic surgery was indicated due to patient, site and/or tumor characteristics (see operative report for specific indication). 3. We discussed risks, benefits, and alternative treatment options to the Mohs micrographic surgeryprocedure and pertinent information including but not limited to the following: ?? Risks include bleeding, infection, scar, recurrence, incomplete tumor removal or inability to cure with surgery alone if the tumor features are more aggressive than the initial pathology indicates. Occasionally, additional adjuvant treatments may be recommended. Additional risks include large wound, prolonged wound [...] it is specific to the patient and defect. ?? Discussed that the shape, size, depth of the wound is often not known until the tumor is clearedand thus the reconstruction options are sometimes not [...] continue to mature for 1-2 years. Recommended avoidance of special ointments or scar creams, and avoidance of direct sun exposure to the scar for optimal recovery. ?? Reviewed that there are some aspects of cosmesis that are dependent on patient's characteristicssuch as age, skin laxity/texture factors, inflammatory skin diseases such as rosacea, prior surgery/radiation, degree of actinic damage, smoking status, strength of the patient's immune system, diligent wound care, medications, and genetics. ?? Having Mohs surgery may lead to physical limitations for optimal healing, such as restricted physical activity and heavy lifting. 4. Signs and symptoms of skin cancer reviewed. Patient to report any new, changing, or symptomatic lesions and follow up with his or her ict account manager or other skin provider. 5. Discussed avoiding direct sun exposure to scars for best cosmetic result. Note initiated by Kristin THOMPSON LPN has performed the documentation for this encounter in the presence of and acting as a scribe for Dr. Lynn I performed the above scribed service and agree with the accuracy of the documentation in this encounter. Reviewed and signed by: Jace Lynn MD PhD Mohs Micrographic Surgery and Dermatologic Oncology Department of Dermatology * Jace Lynn MD - 10/02/2022 8:00 AM EST Mohs micrographic Surgery Operative Report Site #1 Patient name: Koko Zamora : 1940 Date: 10/02/2022 Staff Surgeon and Pathologist: Jace Lynn MD PhD Nursing/Office Services Coordinator(s): Gabriel Bourne LPN [facility], Metal Smelter (s): Lissette Egan Pre-operative diagnosis: Basal Cell Carcinoma,nodular, recurrent Post-operative diagnosis: Basal Cell Carcinoma,nodular, recurrent Location/Site: Right Lateral Eyebrow Procedure: Mohs micrographic surgery Indication(s) for Mohs micrographic surgery: Anatomic location for tissue conservation Stages: 2 Preoperative size of tumor: 1.2 x 1.0 cm Stage I The nature and purpose of the procedure, associated risks, possible consequences and complications,and alternative forms of treatment were explained in detail. We reviewed the possible repairs basedon the clinical appearance of tumor but discussed that often the repair options may not be known until the tumor has dann extirpated. Informed consent and permission to take photographs were obtained. The site was confirmed with the patient/authorized promotional representative/referring physician and/or a photograph form time of biopsy. A pre-operative time-out (procedural pause) was conducted with no unresolved discrepancies noted. Local anesthesia was obtained with 0.5 % lidocaine with 1:200,000 epinephrine. The surgical site was prepped and draped in the usual sterile manner. A 1-2 mm margin was excised around clinically evident tumor as a complete layer. Hemostasis was achieved by electrocoagulation. The excised tissue was oriented and divided into 2 sections, chromacoded, and submitted for frozen sections. The patient tolerated the procedure well and without complications. On my personal microscopic evaluation of the frozen sections, residual tumor was identified as NODULAR BASAL CELL CARCINOMA - Arising from the epidermis and extending into the dermis are irregularly shaped islands of basaloid keratinocytes. The cells have scant cytoplasm and round dark nuclei. The cells at the periphery of the islands display a palisaded arrangement. The islands are associated with a fibromyxoid stroma and there is cleft formation between some of the islands and stroma. on section A1.. Stage II The surgical site was re-anesthetized with 0.5 % lidocaine with 1:200,000 epinephrine, re-prepped and redraped in a sterile manner. The residual tumor was re-excised as a complete layer 2-3mm in thickness using the Mohs map to delineate area of residual tumor. Hemostasis was achieved with electrocoa gulation. The tissue was oriented and divided into 1 sections, chromacoded, and submitted for frozen sections. The patient tolerated the procedure well and without complications. On my personal microscopic evaluation of the frozen sections, no residual tumor was identified on the deep or outer border of the sections. Depth of excision muscle Final defect size: 2.0 x 1.5 cm Repair Report (Flap) Patient name: Koko Zamora Staff Surgeon: Jace Lynn MD PhD Blowing Engineer(s): same as above operations administrative assistant: Date: 10/02/2022 Clinical Diagnosis: skin and soft tissue defect status post Mohs micrographic surgery Location/Site: Right Lateral Eyebrow Indication: repair of wound with adventism of anatomy/function Defect size to be repaired:2.0 x 1.5cm Procedure: Miller Transposition flap repair Final flap size: 3.0 x 3.0cm 2 Procedure Details: Due to the size and location of the defect resulting from the complete removal of the tumor, the postoperative risk of hemorrhage, infection, and the possibility of serious deformity from scarring, and in order to restore proper function and prevent loss of function, the defect was closed with a flap. The nature and purpose of the procedure, associated risks, possible consequences, complications andalternative methods of treatment were explained to the patient in detail. An informed consent was obtained. Local anesthesia was obtained with a solution of 0.5 % lidocaine with 1:200,000 epinephrine. The surgical site was prepped and draped in the usual sterile manner. Any beveled edges of the defect were repaired with a scalpel blade. The flap was created by making incisions along Right Zygoma and Right Lateral eyebrow.The flap and the wound edges were undermined, and hemostasis was obtained with electrocoagulation. The flap was advanced onto the defect. The skin edges were closed using 4-0 Monocryl dermal/subcutaneous sutures and 6-0 Prolene skin sutures. Final flap size: 3.0 x 3.0 cm2. Estimated blood loss: Minimal. Complications: None. Wound care: Routine. Frozen Biopsy Procedure: Skin biopsy by shave technique Location: Right nasal Discussed indications for procedure and expectations including risks and benefits. Verbal consent obtained. Skin prep with alcohol. Local anesthesia with 1% xylocaine, 1/100,000 epinephrine. A sampleof the lesion was removed by shave technique to the level of the dermis and submitted for frozen sections and revealed basal cell carcinoma, nodular. Hemostasis obtained (AlCl and/or electrocautery).There were no complications; the pt. tolerated the procedure well. Jace Lynn MD PhD Mohs Micrographic Surgery and Dermatologic Oncology Department of Dermatology [address] [place] [address] Mohs micrographic Surgery Operative Report Site # 2 Patient name: Koko Zamora : 1940 Date: 10/02/2022 Staff Surgeon and Pathologist: Jace Lynn MD PhD Nursing/Office Services Coordinator(s): Gabriel Bourne LPN [facility] Metal Smelter (s): Lissette Egan Pre-operative diagnosis: Basal Cell Carcinoma,nodular Post-operative diagnosis: Basal Cell Carcinoma,nodular and infiltrative Location/Site: Right Nasal Ala Procedure: Mohs micrographic surgery Indication(s) for Mohs micrographic surgery: Anatomic location for tissue conservation Stages: 2 Preoperative size of tumor: 1.0 x 0.6 cm Stage I The nature and purpose of the procedure, associated risks, possible consequences and complications,and alternative forms of treatment were explained in detail. We reviewed the possible repairs basedon the clinical appearance of tumor but discussed that often the repair options may not be known until the tumor has dann extirpated. Informed consent and permission to take photographs were obtained. The site was confirmed with the patient/authorized promotional representative/referring physician and/or a photograph form time of biopsy. A pre-operative time-out (procedural pause) was conducted with no unresolved discrepancies noted. Local anesthesia was obtained with 0.5 % lidocaine with 1:200,000 epinephrine. The surgical site was prepped and draped in the usual sterile manner. A 1-2 mm margin was excised around clinically evident tumor as a complete layer. Hemostasis was achieved by electrocoagulation. The excised tissue was oriented and divided into 2 sections, chromacoded, and submitted for frozen sections. The patient tolerated the procedure well and without complications. On my personal microscopic evaluation of the frozen sections, residual tumor was identified as INFILTRATIVE BASAL CELL CARCINOMA -- Irregularly shaped narrow cords, thin strands, and small islands ofbasaloid keratinocytes are present in the dermis with an infiltrating and angulated growth pattern.The cells have scant cytoplasm and round dark nuclei. The islands are associated with a fibromyxoidstroma and there is cleft formation between some of the islands and stroma. on section A2. Stage II The surgical site was re-anesthetized with 0.5 % lidocaine with 1:200,000 epinephrine, re-prepped and redraped in a sterile manner. The residual tumor was re-excised as a complete layer 2-3mm in thickness using the Mohs map to delineate area of residual tumor. Hemostasis was achieved with electrocoa gulation. The tissue was oriented and divided into 1 sections, chromacoded, and submitted for frozen sections. The patient tolerated the procedure well and without complications. On my personal microscopic evaluation of the frozen sections, no residual tumor was identified on the deep or outer border of the sections. Depth of excision fibrofatty tissue. Final defect size: 1.3x 1.1 cm. OPERATIVE REPORT (REPAIR) Patient Name: Koko Zamora Age: 82 y.o. : 1940 Date: 10/02/2022 Staff Surgeon: Jace Lynn MD PhD Assistants: Diagnosis: Status post Mohs micrographic surgery defect/wound Site: Right Ala Final Defect Size prior to repair: 1.3 x 1.1 Donor site: Right Lateral Eyebrow INDICATION: repair and adventism of anatomy/function PROCEDURE: Full-thickness skin graft A graft was chosen as repair after discussing various repair options and pros and cons of those. Anesthesia with 0.5 % lidocaine with 1:200,000 epinephrine and another sterile prep were performed. Toavoid anatomical distortion, a template was made of the defect, and a full-thickness skin graft wascarefully planned and harvested from the Right Lateral Eyebrow. The graft was defatted and trimmed to fit the defect. After hemostasis was obtained with electrocoagulation, the graft was sutured intoplace with 6-0 Prolene skin sutures. The donor area was converted to a fusiform defect. The deep tissues were apposed and sutured with 4.0 Monocryl sutures and the epidermal edges were approximated with 6-0 Prolene running and/or interrupted sutures . Final graft size: 1.3 x 1.1cm estimated blood loss: Minimal. Complications: None. Wound care: Routine Preoperative medications: None Post-operative medications: Keflex 500mg twice daily for 5 days Follow-up:2 weeks suture removal,he would like to have his primary care provider remove the sutures. Total local anesthesia with 0.5 % lidocaine with 1:200,000 epinephrine used: 12cc 1.0% lidocaine with 1,100,00 epinephrine used 6cc Jace Lynn MD PhD [facility] Dermat[facility] On[facility] Department of Dermatology [address] [place] [address] documented in this encounter Plan of Treatment Not on file documented as of this encounter Visit Diagnoses Diagnosis Basal cell carcinoma (BCC) of eyebrow documented in this encounter Care Teams Linux Unix Engineer Relationship Specialty Start Date End Date Bobby Das MD [address] [place] [address] [place] [id number] PCP - General 10/02/10 documented as of this encounter
--- OUTSIDE RECORDS SUMMARY | 2024-09-17 01:30 | XMS_ITS | Encounter Summary ---
Author Organization [facility] Address [facility] [place] [address] Care Team Providers Care Travel Agent Name Role Phone Bobby Das MD Primary Care Provider [phone] Encounter Details Date Type Department Care Team (Late st Contact Info) Description 08/16/2022 Telephone [place] [address] [facility] DR [place]STRO[place] [address] Social History Tobacco Use Types Packs/Day Years [...] encounter Miscellaneous Notes * Telephone Encounter - Jewell Arroyo - 08/16/2022 10:56 AM EDT I called primary team to inquire on patient status following consult for [id number]-[id number], can refer to Dr. Celaya's note yesterday evening. Patient received 3u pRBC but Hb only improved to 7.8. Has not been seen this morning, so not clear if he is having active symptoms of GIB. Unfortunately our schedule today does not have time for a khlf-[id number]-szcy, so I recommend the team talk to other facilitiesfor possible transfer where GI services are available. If patient remains admitted there, because we have no beds for transfer, recommend continuing IV PPI, transfusing for active bleeding or Hb<7, and touching base with team on Friday for potential [id number] Friday for push enteroscopy +/- colonoscopy. Jewell Arroyo MD Gastroenterology PGY-6 08/16/2022 11:12 AM Pager #[phone] documented in this encounter Plan of Treatment Not on file documented as of this encounter Visit Diagnoses Not on filedocumented in this encounter Care Teams Travel Agent Relationship Specialty Start Date End Date Bobby Das MD [address] [place] [address] [place] [phone] PCP - General 10/02/10 documented as of this encounter
--- OUTSIDE RECORDS SUMMARY | 2024-09-17 01:30 | XMS_ITS | Encounter Summary ---
Author Organization [facility] Address [facility] [place] [address] Care Team Providers Care Dehydration Unit Operator Name Role Phone Bobby Das MD Primary Care Provider [phone] Reason for Visit * Reason Comments Medication Refill Encounter Details Date Type Department Care Team (Late st Contact Info) Description 07/31/2022 Refill [place] [address] Nasrin Parra PA [facility] [place] [address] Social History Tobacco Use Types Packs/Day Years [...] on filedocumented in this encounter Care Teams Dehydration Unit Operator Relationship Specialty Start Date End Date Bobby Das MD [address] [place] [address] [place] [phone] PCP - General 10/02/10 documented as of this encounter
--- OUTSIDE RECORDS SUMMARY | 2024-09-17 01:30 | XMS_ITS | Encounter Summary ---
Author Organization [facility] [place] [address] Care Team Providers Care Assistant Therapy Aide Name Role Phone Bobby Das MD Primary Care Provider [phone] Reason for Referral * Diagnostic Test (Routine) - Closed Specialty Diagnoses / Procedures Referred By Contac t Referred To Contact Cardiology Diagnoses HFrEF (heart failure with reduced ejection fraction) Procedures Echocardiogram Transthoracic Bel Blanco MD [facility] [place] [address] [facility] [place] [address] Referral ID Status Reason Start Date Expiration Date V isits Requested Visits Authorized [id number] Closed Specialty Service Requested 06/13/2022 06/13/2023 1 1 Reason for Visit * Diagnostic Test (Routine) - Closed Specialty Diagnoses / Procedures Referred By Contac t Referred To Contact Cardiology Diagnoses HFrEF (heart failure with reduced ejection fraction) Procedures Echocardiogram Transthoracic Bel Blanco MD [facility] [place] [address] [facility] [place] [address] Referral ID Status Reason Start Date Expiration Date V isits Requested Visits Authorized [id number] Closed Specialty Service Requested 06/13/2022 06/13/2023 1 1 Encounter Details Date Type Department Care Team (Latest Contact Info) Description 09/05/2022 11:56 AM EDT - 09/05/2022 11:59 PM EDT Hospital Encounter [place] [phone] Bel Blanco MD [facility] [place] [address] HFrEF (heart failure with reduced ejection fraction) Discharge Disposition: Home Social History Tobacco Use Types Packs/Day Years [...] Sig Dispensed Refills Start Date End Date fluticasone propionate (FLONASE) 50 mcg/actuation [place], Suspension 1 spray by Each Nare route daily as needed. 04/12/2021 fluorouraciL (EFUDEX) 5 % Cream daily. 04/12/2021 carboxymethylcellulose (REFRESH PLUS) 0.5 % Dropperette Apply to eye 3 times daily as needed. tamsulosin (FLOMAX) 0.4 mg Capsule Take 0.4 mg by mouth daily. CRESTOR 40 mg Tablet Take 40 mg by mouth daily. 09/13/2016 MULTIVITAMIN (MULTIPLE VITAMIN ORAL) Take 1 tablet by mouth daily. rivaroxaban (Xarelto) 20 mg Tablet Take 1 tablet by mouth daily. 90 tablet 3 06/13/2022 12/12/2022 acetaminophen (Tylenol) 325 mg Tablet Take 2 tablets by mouth every 6 hours as needed for Pain. 30 tablet 1 05/21/2022 11/05/2023 clopidogreL (Plavix) 75 mg Tablet Take 1 tablet by mouth daily. 90 tablet 3 05/22/2022 05/30/2023 metoprolol succinate XL (Toprol-XL) 50 mg Tablet Sustained Release 24 hr Take 1 tablet by mouth daily. 30 tablet 12 05/21/2022 11/05/2023 ascorbic acid, vitamin C, (VITAMIN C) 1,000 mg Tablet Take 1,000 mg by mouth daily. 09/04/2020 11/12/2023 sildenafiL (VIAGRA) 100 mg Tablet Take 100 mg by mouth as needed for Erectile Dysfunction. 11/12/2023 calcium citrate (CALCITRATE) 200 mg (950 mg) Tablet Take 3 tablets by mouth daily. 600mg total 11/12/2023 documented as of this encounter Plan of Treatment Not on file documented as of this encounter Procedures Procedure Name Priority Date/Time Associated Diagnosis Comments ECHO COMPLETE Routine 09/05/2022 1:25 PM EDT HFrEF (heart failure with reduced ejection fraction) documented in this encounter Results * ECHO COMPLETE (09/05/2022 1:25 PM EDT) [facility] Signature EF 30 HEARTLAB SYSTEM Anatomical Region Laterality Modality Cardiac Other 09/05/2022 12:0 3 PM EDT Narrative 09/05/2022 2:11 PM EDT ? Echocardiogram Report Name: ETTA BAH ?Study Date: 09/05/2022 12:03 PMBP: 111/59 mmHg ? Patient Location: [id number] : 1940 ? Height: 173 cm ? Account: [id number] Age: 81 yrs ? Weight: 76 kg Gender: Male ?BSA: 1.9 m2 Ordering Physician: BEL BLANCO Referring Physician: BEL BLANCO Performed By: Salud Estrada Reason For Study: HFrEF Exam Location: [facility]. Interpretation Summary Technically limited imaging. Left ventricular ejection fraction is estimated visually [...] TTE performed 05/16/22, findings are overall similar. Procedure Complete-[id number]. Satisfactory quality. Irregular rhythm. Left Ventricle Left ventricular ejection fraction is estimated visually at 30%. Severe global hypokinesis. Right Ventricle The right ventricle is of normal size. Right ventricular systolic function is mildly decreased. Left Atrium The left atrium is severely dilated. There is no evidence for a patent foramen ovale. Right Atrium The right atrium is mildly dilated. Aortic Valve There is calcification of the aortic annulus. The aortic valve is mildly thickened. The aortic valve is probably trileaflet. There is moderate aortic stenosis. The highest gradient is obtained from the apical window. The mean gradient across the aortic valve is 15 mmHg. The peak instantaneous gradient across the aortic valve is 25 mmHg. The dimensionless index is 0.41. The aortic valve area calculated using the continuity equation is 1.4 cm2. There is no aortic regurgitation. Mitral Valve S/P mitral valve repair. Mild thickening of the mitral leaflets. The estimated mean gradient across the mitral valve is 5 mmHg. Heart rate: 82-90 beats per minute. There is trace mitral regurgitation. Tricuspid Valve The tricuspid valve is structurally normal. There is no tricuspid stenosis. There is mild to moderate tricuspid regurgitation. Pulmonic Valve The pulmonic valve appears to be structurally normal. There is no valvular pulmonic stenosis. There is mild pulmonic valve regurgitation. Great Arteries The aortic root at the level of the sinuses of Valsalva is mildly dilated. The diameter at the level of the sinuses of Valsalva is 3.9 cm. The ascending aorta is mildly dilated. The maximum diameter of the ascending aorta is 3.9 cm. Venous Inferior vena cava is dilated. Inferior vena cava collapse greater than 50% with respiration. Hemodynamics The estimated right atrial pressure is 8mmHg. The peak right ventricular systolic pressure is 31 mmHg. Unable to assess diastolic function. ? 2D Measurements ? Volumes ?Ao root diam: 3.9 cm ? LAV(MOD-bp) Indexed: ?Ao root diam index: 2.1 ?64.6 ml/m2 ?asc Aorta Diam: 3.9 cm ?LVOT diam: 2.3 cm ?RA A4Cs_phl: 21.7 cm2 ?TAPSE_phl: 1.5 cm ?SV(LVOT): 86.1 ml ? SI(LVOT): 45.4 ml/m2 Doppler TR max agueda: 237.1 cm/sec RVSP(TR): 30.5 mmHg LV V1 VTI: 20.4 cm Ao V2 VTI: 61.1 cm Ao Max: 255.6 cm/sec Ao valve max: 25.6 mmHg Ao valve mean: 15.8 mmHg MV E max agueda: 153.7 cm/sec JUVENAL(I,D): 1.4 cm2 Dimensionless index Aov: 0.33 JUVENAL Planimetery: 0.98 cm2 PI end-d agueda: 111.1 cm/sec MV mean P.0 mmHg I ?WMSI = 2.00 ? % Normal = 0 ?Segments ??Size X - Cannot ?2 - ?4 - ?1-2 ? small Interpret ?1 - Normal ?? Hypokinetic 3 - Akinetic Dyskinetic ?? 3-5 ? moderate 5 - ? 6-14 ?large Aneurysmal ?15-16 ?? diffuse Procedure Note Leandro Schwartz MD - 09/05/2022 Echocardiogram Report Name: ETTA BAH Study Date: :03 PMBP: 111/59 mmHg Patient Location: [id number] : 1940 Height: 173 cm Account: [id number] Age: 81 yrs Weight: 76 kg Gender: Male BSA: 1.9 m2 Ordering Physician: BEL BLANCO Referring Physician: BEL BLANCO Performed By: Salud Estrada Reason For Study: HFrEF Exam Location: [facility]. Interpretation Summary Technically limited imaging. Left ventricular ejection fraction is estimated visually at 30%, withglobal hypokinesis. Right ventricular systolic function is mildly decreased. The peak right ventricular systolic pressure is 31 mmHg. There is moderate aortic stenosis by technically challenging Dopplerevaluation. The mean gradient across the aortic valve is 15 mmHg. The aortic valvearea calculated using the continuity equation is 1.4 cm2. S/P mitral valve repair. The estimated mean gradient across the mitralvalve is 5 mmHg. Heart rate: 82-90 beats per minute. There is trace mitralregurgitation. There is mild to moderate tricuspid regurgitation. See report for additional findings. Compared to the TTE performed 05/16/22,findings are overall similar. Procedure Complete-[id number]. Satisfactory quality. Irregular rhythm. Left Ventricle Left ventricular ejection fraction is estimated visually at 30%. Severeglobal hypokinesis. Right Ventricle The right ventricle is of normal size. Right ventricular systolic functionis mildly decreased. Left Atrium The left atrium is severely dilated. There is no evidence for a patentforamen ovale. Right Atrium The right atrium is mildly dilated. Aortic Valve There is calcification of the aortic annulus. The aortic valve is mildly thickened. The aortic valve is probably trileaflet. There is moderateaortic stenosis. The highest gradient is obtained from the apical window. Themean gradient across the aortic valve is 15 mmHg. The peak instantaneousgradient across the aortic valve is 25 mmHg. The dimensionless index is 0.41. Theaortic valve area calculated using the continuity equation is 1.4 cm2. There isno aortic regurgitation. Mitral Valve S/P mitral valve repair. Mild thickening of the mitral leaflets. Theestimated mean gradient across the mitral valve is 5 mmHg. Heart rate: 82-90 beatsper minute. There is trace mitral regurgitation. Tricuspid Valve The tricuspid valve is structurally normal. There is no tricuspidstenosis. There is mild to moderate tricuspid regurgitation. Pulmonic Valve The pulmonic valve appears to be structurally normal. There is novalvular pulmonic stenosis. There is mild pulmonic valve regurgitation. Great Arteries The aortic root at the level of the sinuses of Valsalva is mildly dilated.The diameter at the level of the sinuses of Valsalva is 3.9 cm. The ascendingaorta is mildly dilated. The maximum diameter of the ascending aorta is 3.9 cm. Venous Inferior vena cava is dilated. Inferior vena cava collapse greater than50% with respiration. Hemodynamics The estimated right atrial pressure is 8mmHg. The peak right ventricularsystolic pressure is 31 mmHg. Unable to assess diastolic function. 2D Measurements Volumes Ao root diam: 3.9 cm LAV(MOD-bp)Indexed: Ao root diam index: 2.1 64.6 ml/m2 asc Aorta Diam: 3.9 cm LVOT diam: 2.3 cm RA A4Cs_phl: 21.7cm2 TAPSE_phl: 1.5 cm SV(LVOT): 86.1ml SI(LVOT): 45.4ml/m2 Doppler TR max agueda: 237.1 cm/sec RVSP(TR): 30.5 mmHg LV V1 VTI: 20.4 cm Ao V2 VTI: 61.1 cm Ao Max: 255.6 cm/sec Ao valve max: 25.6 mmHg Ao valve mean: 15.8 mmHg MV E max agueda: 153.7 cm/sec JUVENAL(I,D): 1.4 cm2 Dimensionless index Aov: 0.33 JUVENAL Planimetery: 0.98 cm2 PI end-d agueda: 111.1 cm/sec MV mean P.0 mmHg I WMSI = 2.00 % Normal = 0 SegmentsSize X - Cannot 2 - 4 - 1-2small Interpret 1 - Normal Hypokinetic 3 - Akinetic Dyskinetic 3-5moderate 5 - 6-14large Aneurysmal 15-16diffuse Bel Blanco MD ECHO ORDERABLES documented in this encounter Visit Diagnoses Diagnosis HFrEF (heart failure with reduced ejection fraction) documented in this encounter Care Teams Assistant Therapy Aide Relationship Specialty Start Date End Date Bobby Das MD [address] [place] [address] [place] [phone] PCP - General 10/02/10 documented as of this encounter
--- OUTSIDE RECORDS SUMMARY | 2024-09-17 01:30 | XMS_ITS | Encounter Summary ---
Author Organization [facility] [place] [address] Care Team Providers Care Tire Worker Name Role Phone Bobby Das MD Primary Care Provider [phone] Reason for Visit * Consultation (Routine) - Closed Specialty Diagnoses / Procedures Referred By Colby quezada Referred To Contact Gastroenterology Diagnoses Adenomatous polyp of colon, unspecified part of colon Colonoscopy 06/25/22, discussed w/Dr. Ponce needs to be seen in clinic to discuss polyp / removal iso plavix & DOAC Systrom, Isi Mera MD [facility] [place] [address] [facility] [place] [address] Referral ID Status Reason Start Date Expiration Date V isits Requested Visits Authorized [id number] Closed Consult, Test & Treat 06/25/2022 06/25/2023 1 1 Encounter Details Date Type Department Care Team (Latest Contact Info) Description 11/18/2022 3:00 PM EST TH Visit (TeleHealth) [place] [address] Giovani Ponce MD [facility] [place] [address] Iron deficiency anemia due to chronic blood loss Social History Tobacco Use Types Packs/Day Years [...] as of this encounter Progress Notes * Giovani Ponce MD - 11/18/2022 3:00 PM EST [place] Section of Gastroenterology and Hepatology Outpatient Consultation [facility] Gastroenterology Telephone Note Primary care provider: Bobby Das MD Referred by Isi Celaya Reason for visit: follow up gi bleeding History of Present Illness: Koko Zamora is a 82 y.o. man here in follow up of chronic occult GI bleeding. Briefly, he was evaluated in May for symptomatic anemia w/Hgb drop from ~11 to 6.9 on triple therapy with aspirin, plavix and xarelto. 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 In August he presented to [facility] again with symptomatic anemia. One of the GI fellows was contacted via the transfer center (see note for details), and it looks as though we did not the hear back from [facility]. He is here today for a general follow up. He says his PCP has been following his HgB closely with weekly blood draws - HgB from 9 to 8 back to 9.3 most recenty. He is not taking any iron (unclear reaction to iron over 20 years ago). He is on plavix and xarelto. His medical history is notable for remote mitral valve repair (2000), prediabetes, hyperlipidemia, alcohol use, and tobacco use and a vascular intervention last summer for acute LLE limb ischemia for which he underwent left femoral cutdown with thromboembolectomy, and HFrEF, ?? 9 to 8.1 now 9.3 Review of Systems: All other systems negative except as above in HPI No past medical history on file. Past Surgical History: Procedure Laterality Date ??? IR BIOPSY SPINE 07/20/2019 IR Biopsy Spine 07/20/2019 Bobby Marshall MD [facility] INTER[facility]ION[facility] RAD ??? IR VERTEBROPLASTY LUMBAR MULTIPLE LEVELS 07/20/2019 IR Vertebroplasty Lumbar Multiple Levels 07/20/2019 Bobby Marshall MD [facility] RAD ??? IR VERTEBROPLASTY THORACIC SINGLE LEVEL 10/25/2020 IR Vertebroplasty Thoracic Single Level 10/25/2020 Matt Chisholm MD [facility] INTER[facility] RAD ??? PRO COLONOSCOPY, FLEX, W/CONTROL, BLEEDING N/A 06/25/2022 COLONOSCOPY; W CONTROL OF BLEEDING, ANY METHOD performed by Giovani Ponce MD at [facility] ENDOSCOPY ??? PRO EMBLC/THRMBC FEMORAL POPLITEAL AORTO-ILIAC ARTERY Left 05/15/2022 EMBOLECTOMY OR THROMBECTOMY, FEMOROPOPLITEAL, AORTOILIAC ARTERY BY LEG INCISION (WRVU 19.48) performed by Fito Summers MD at [facility] MAIN OR ??? PRO SMALL BOWEL ENDOSCOPY, PAST 2ND DUOD N/A 06/25/2022 SMALL BOWEL ENTEROSCOPY performed by Giovani Ponce MD at [facility] ENDOSCOPY ??? PRO UPPER GI ENDOSCOPY, CTRL BLEED 05/31/2022 EGD, W CONTROL OF BLEEDING, ANY METHOD performed by Giovani Ponce MD at [facility] ENDOSCOPY ??? PRO UPPER GI ENDOSCOPY, DIAGNOSTIC N/A 05/31/2022 EGD, UPPER GI ENDOSCOPY performed by Giovani Ponce MD at [facility] ENDOSCOPY ??? PRO UPPER GI ENDOSCOPY, DIAGNOSTIC N/A 06/25/2022 EGD, UPPER GI ENDOSCOPY performed by Giovani Ponce MD at [facility] ENDOSCOPY Social History: reports that he quit smoking about 6 months ago. His smoking use included cigarettes. He has a 25.00 pack-year smoking history. He has never used smokeless tobacco. He reports currentalcohol use of about 42.0 standard drinks per week. He reports that he does not currently use drugs. Family History: family history is not on file. Current Outpatient Medications Medication Sig Dispense Refill ??? cephALEXin (KEFLEX) 500 mg Tablet One Tablet Twice Daily by mouth for five days 10 tablet 0 ??? rivaroxaban (Xarelto) 20 mg Tablet Take 1 tablet by mouth daily. 90 tablet 3 ??? acetaminophen (Tylenol) 325 mg Tablet Take 2 tablets by mouth every 6 hours as needed for Pain.(Patient not taking: Reported on 06/13/2022) 30 tablet 1 ??? clopidogreL (Plavix) 75 mg Tablet Take 1 tablet by mouth daily. 90 tablet 3 ??? metoprolol succinate XL (Toprol-XL) 50 mg Tablet Sustained Release 24 hr Take 1 tablet by mouthdaily. (Patient taking differently: Take 25 mg by mouth daily.) 30 tablet 12 ??? fluticasone propionate (FLONASE) 50 mcg/actuation [place], Suspension 1 spray by Each Nare route [...] ??? Aspirin Other (See Comments) GI bleed No Physical Examination Performed because this was a telephone/telehealth visit Additional Testing: Reviewed available labs, imaging and endoscopy results in EDH/CIS as well as Scan Docs tab. Labs: Lab Results Component Value Date WBC 7.2 06/02/2022 HGB 8.7 (L) 06/02/2022 HCT 25.7 (L) 06/02/2022 MCV 93.8 (H) 06/02/2022 PLATELET 260 06/02/2022 Chemistry Component Value Date/Time NA 142 06/02/2022 0030 K 3.8 06/02/2022 0030 CL 108 (H) 06/02/2022 0030 CO2 24 06/02/2022 0030 BUN 12 06/02/2022 0030 CREATININE 0.71 (L) 06/02/2022 0030 Component Value Date/Time CALCIUM 8.1 (L) 06/02/2022 0030 ALKPHOS 63 05/31/2022 1050 AST 24 05/31/2022 1050 ALT 44 05/31/2022 1050 BILITOT <0.2 (L) 05/31/2022 1050 Lab Results Component Value Date ALT 44 05/31/2022 AST 24 05/31/2022 ALKPHOS 63 05/31/2022 BILITOT <0.2 (L) 05/31/2022 IMPRESSION AND RECOMMENDATIONS: Koko Zamora is a 82 y.o. man here in follow up of symptomaticanemia attributed to GI blood loss. This developed over last summer while on triple anticoagulationfollowing LLE ischemia and left femoral cutdown with thromboembolectomy. He also has , HFrEF, shaw remote mitral valve repair. He underwent two upper endoscopies including a push enteroscopy and colonoscopy finding AVMs in the duodenum, jejunum, and colon, all which were cauterized. More recently he has been on Plavix and Xarelto without overt bleeding, and stable HgB (most recently up trending). He is not on iron replacement. For now I recommend he continue to have his HgB monitored by his PCP, confirm workup that excludes other etiologies of anemia, and consider iron replacement therapy.He does not remember what his 'reaction' to oral iron was over 20 years ago; however, parenteral replacement may be considered. If despite iron replacement his anemia worsens due to blood loss, we can repeat his endoscopic workup including a video capsule. I also brought it to his attention that hewas found to have small polyps that were not removed. I offered to arrange a follow up colonoscopy for polypectomy; however, considering the issues related to his blood thinners and blood loss, he decided to postpone this for now and we will plan for a follow up to discuss how he is doing in 6 months. Patient verbally consents to this telephone visit and understands that this visit may be billed, similar to a clinic office visit. I provided care to the patient today via telephone call, 30 minutes telephone visit was spent in discussion with patient on above. An additional 10 minutes were spent before and after the visit on this same day in preparation for the appointment, ordering tests and/or prescriptions, communicating with referring providers and completing documentation. Giovani Ponce MD CC Bobby Das MD [address] [place] [address] [place] [phone] SystromIsi MD [facility] [place] [address] Gastroenterology Section [place] documented in this encounter Plan of Treatment Scheduled Referrals Name Type Priority Associated Diagnoses Order Schedule Referral to Gastroenterology Outpatient Referral Routine Adenomatous polyp of colon, unspecified part of colon Ordered: 06/25/2022 documented as of this encounter Visit Diagnoses Diagnosis Iron deficiency anemia due to chronic blood loss Iron deficiency anemia secondary to blood loss (chronic) documented in this encounter Care Teams Tire Worker Relationship Specialty Start Date End Date Bobby Das MD [address] [place] [address] [place] [id number] PCP - General 10/02/10 documented as of this encounter
--- OUTSIDE RECORDS SUMMARY | 2024-09-17 01:30 | XMS_ITS | Encounter Summary ---
Author Organization [place] [address] Care Team Providers Care Appellate Conferee Name Role Phone Bobby Das MD Primary Care Provider [phone] Reason for Referral * Consultation (Routine) - Closed Specialty Diagnoses / Procedures Referred By Colby quezada Referred To Contact Gastroenterology Diagnoses Adenomatous polyp of colon, unspecified part of colon Colonoscopy 06/25/22, discussed w/Dr. Ponce needs to be seen in clinic to discuss polyp / removal iso plavix & DOAC Isi Celaya MD [facility] [place] [address] [facility] [place] [address] [address] Referral ID Status Reason Start Date Expiration Date V isits Requested Visits Authorized [id number] Closed Consult, Test & Treat 06/25/2022 06/25/2023 1 1 Scheduling Instructions To be seen in ~2mo Encounter Details Date Type Department Care Team (Late st Contact Info) Description 06/25/2022 Orders Only [place] [address] Isi Celaya MD [facility] [place] [address] Adenomatous polyp of colon, unspecified part of colon Social History Tobacco Use Types Packs/Day Years [...] colon documented in this encounter Care Teams Appellate Conferee Relationship Specialty Start Date End Date Bobby Das MD [address] [place] [address] [place] [phone] PCP - General 10/02/10 documented as of this encounter
--- OUTSIDE RECORDS SUMMARY | 2024-09-17 01:30 | XMS_ITS | Encounter Summary ---
[place] [address] Care Team Providers Care Director Internal Audit Name Role Phone Bobby Das MD Primary Care Provider [phone] Reason for Visit * Auth/Cert (Routine) Specialty Diagnoses / Procedures Referred By Colby quezada Referred To Contact Diagnoses GI bleed gi [place] [address] [facility] Referral ID Status Reason Start Date Expiration Date Visits Re quested Visits Authorized [id number] 1 1 Encounter Details Date Type Department Care Team (Late st Contact Info) Description 12/09/2022 11:17 AM EST Anesthesia [place] [address] Fernando Boyce MD [facility] [place] [address] Anesthesia Record Procedure Summary Procedure Name Responsible Anesthesiologist Anesthesia Start Time Anesthesia Stop Time COLONOSCOPY, DIAGNOSTIC (WRVU 3.26) (Trunk) Fernando Boyce MD 12/09/22 1117 12/09/22 1209 Events Date Time Event Comment 12/09/2022 1036 1116 AN Verify 1117 Start 1117 An Start Data 1120 An Induction 1121 Anesthesia Ready 1204 an stop data 1209 Recovery or ICU Handoff Lorie ent care was transferred to the destination unit staff after review of the patient's medical history, current anesthetic/surgical status and plan, according to the Provider Handoff Checklist. 1209 Stop Meds Name Total IV Lidocaine 50 mg Propofol 180 mg Propofol INF 152.29 mg PHENYLephrine 560 mcg Lactated Ringers 200 mL * Agents Name O2 Air N2O O2 Auxiliary Flowmeter 1 * Blood No blood administrations on file. Lines, Drains, and Airways Type Details Placement Removal (RETIRED) Peripheral IV Line - Single Lumen 12/08/22 (inserted at OSH); 1742; median cubital vein (antecubital fossa), right; 18 gauge; leaking around site; site symptomatic, catheter/device intact; 12/10/22; 0915 12/08/22 1742 by Margy Knapp 12/10/22 0915 by Nataly Cevallos RN (RETIRED) Peripheral IV Line - Single Lumen 12/08/22 (inserted at OSH); 1743; median cubital vein (antecubital fossa), left; 18 gauge; leaking around site; site symptomatic, catheter/device intact; 12/10/22; 0910 12/08/22 1743 by Margy Knapp 12/10/22 0910 by Nataly Cevallos RN documented in this encounter Social History Tobacco [...] OR Notes * Anesthesia Postprocedure Evaluation - Fernando Boyce MD - 12/09/2022 12:28 PM EST Department of Anesthesiology Post-procedure Note Patient: Koko Zamora Procedure Summary Date: 12/09/22 Room / Location: [facility] ENDO 3 / [facility] ENDOSCOPY Anesthesia Start: 1117 Anesthesia Stop: 1209 Procedure: COLONOSCOPY, DIAGNOSTIC (Trunk) Diagnosis: (hematochezia) Surgeons: Giovani Ponce MD Responsible Provider: Fernando Boyce MD Anesthesia Type: MAC ASA Status: 3 All Anesthesia Providers: Anesthesiologist: Fernando Boyce MD LEAF TINNER: Kourtney Rosenberg CRNA Vitals Value Taken Time BP 96/63 12/09/22 1226 Temp Pulse 68 12/09/22 1227 Resp 17 12/09/22 1227 SpO2 100 % 12/09/22 1227 Pain Level 0 12/09/22 1223 Vitals shown include unvalidated device data. Patient Location: PACU/[facility] Level of Consciousness: Conscious but Sleepy Pain Management: Pain Being Addressed PONV: None Cardiovascular Status: At Baseline Respiratory Status: At Baseline Postoperative Fluid Status: Intravascular EUvolemia Possible Anesthetic Complications: NONE apparent at time of evaluation Final Primary Anesthesia Type: MAC (The anesthetic type performed was the same as planned.) Comments: * Anesthesia Preprocedure Evaluation - Fernando Boyce MD - 12/09/2022 8:17 AM EST Pre-Anesthesia Evaluation for: Koko Zamora a 82 y.o. male. Procedure(s): COLONOSCOPY, DIAGNOSTIC Patient Active Problem List Diagnosis Date Noted ??? *GI bleed 12/08/2022 ??? Coronary artery disease involving [place] coronary artery of [place] heart without angina pectoris 06/13/2022 ??? HFrEF [...] Biopsy Spine 07/20/2019 Bobby Marshall MD [facility] INTERVENTION[facility] RAD ??? IR VERTEBROPLASTY LUMBAR MULTIPLE LEVELS 07/20/2019 IR Vertebroplasty Lumbar Multiple Levels 07/20/2019 Bobby Marshall MD [facility] INTERVENT[facility] RAD ??? IR VERTEBROPLASTY THORACIC SINGLE LEVEL 10/25/2020 IR Vertebroplasty Thoracic Single Level 10/25/2020 Matt Chisholm MD [facility] INTERVENTION[facility] RAD ??? PRO COLONOSCOPY, FLEX, W/CONTROL, BLEEDING N/A 06/25/2022 COLONOSCOPY; W CONTROL OF BLEEDING, ANY METHOD performed by Giovani Ponce MD at [facility] ENDOSCOPY ??? PRO EMBLC/THRMBC FEMORAL POPLITEAL AORTO-ILIAC ARTERY Left 05/15/2022 EMBOLECTOMY OR THROMBECTOMY, FEMOROPOPLITEAL, AORTOILIAC ARTERY BY LEG INCISION (WRVU 19.48) performed by Fito Summers MD at [facility] MAIN OR ??? PRO SMALL BOWEL ENDOSCOPY, PAST 2ND DUOD N/A 06/25/2022 SMALL BOWEL ENTEROSCOPY performed by Giovani Ponce MD at [facility] ENDOSCOPY ??? PRO UPPER GI ENDOSCOPY, CTRL BLEED 05/31/2022 EGD, W CONTROL OF BLEEDING, ANY METHOD performed by Giovani Ponce MD at [facility] ENDOSCOPY ??? PRO UPPER GI ENDOSCOPY, DIAGNOSTIC N/A 05/31/2022 EGD, UPPER GI ENDOSCOPY performed by Giovani Ponce MD at [facility] ENDOSCOPY ??? PRO UPPER GI ENDOSCOPY, DIAGNOSTIC N/A 06/25/2022 EGD, UPPER GI ENDOSCOPY performed by Giovani Ponce MD at [facility] ENDOSCOPY Social History Tobacco Use ??? Smoking status: Former Packs/day: 0.50 Years: 50.00 Pack years: 25.00 Types: Cigarettes Quit date: 05/15/2022 Years since quittin.5 ??? Smokeless tobacco: Never Substance Use Topics ??? Alcohol use: Yes Alcohol/week: 42.0 standard drinks Types: 42 Cans of beer per week Comment: Last alcohol use in May 2022 Social History Substance and Sexual Activity Drug Use Not Currently Allergies Allergen Reactions ??? Aspirin Other (See Comments) GI bleed Medications: MAR and/or home medications have been reviewed. Physical Exam: Preprocedure Vitals Current as of 12/09/22 0817 BP: 123/55 Pulse: 107 Resp: 18 SpO2: 98 Temp: 37.6 ??C (99.7 ??F) Height: Weight: BMI: IBW: Last edited 12/09/22 0740 by JANI Currently displaying vitals information from multiple entries within 180 minutes of most recent vitals. Airway Assessment: Mallampati: II TM distance: >3 FB Neck ROM: full Cardiovascular Assessment: Rhythm: irregular Rate: abnormal Pulmonary Assessment: breath sounds clear to auscultation Dental Assessment: Misc Assessment: Last Filed Perioperative Cognitive Screening Value Time User 4AT TOTAL Score: 0 05/19/2022 8:00 AM Caroline Zamora RN Anesthesia Plan: ASA 3 MAC, with a(n) intravenous induction Patient is a 82-year-old male scheduled for colonoscopy under anesthesia. History of melena and with a fib on meds. NPO except for am meds. Consent was obtained and risks were explained. Region - Other Informed Consent: Anesthetic plan and risks discussed with patient. Plan discussed with LEAF TINNER and attending. Anesthesia Screening documented in this encounter Plan of Treatment Not on file documented as of this encounter Visit Diagnoses Not on filedocumented in this encounter Administered Medications Inactive Administered Medications - up to 3 most recent administrations Medication Order MAR Action Action Date Dose Rate Site lactated ringers infusion Intravenous, CONTINUOUS PRN, Starting on Fri12/09/22 at 1116, Until Fri12/09/22 at 1209, Anesthesia Intra-op New Bag 12/09/2022 11:16 AM EST lidocaine (pf) (Xylocaine) (20 mg/mL) 2% injection syringe Intravenous, PRN, Starting on Fri12/09/22 at 1122, Until Fri12/09/22 at 1209, Anesthesia Intra-op, Routine Given 12/09/2022 11:22 AM EST 50 mg PHENYLephrine in NS (PF) (MARLEN-SYNEPHRINE) 0.8 mg/10 mL (80 mcg/mL) multi-dose injection Syrg Intravenous, PRN, Starting on Fri12/09/22 at 1126, Until Fri12/09/22 at 1209, Anesthesia Intra-op, Routine Given 12/09/2022 12:01 PM EST 80 mcg Given 12/09/2022 11:55 AM EST 160 mcg Given 12/09/2022 11:45 AM EST 80 mcg propofoL (Diprivan) (10 mg/mL) infusion Intravenous, CONTINUOUS PRN, Starting on Fri12/09/22 at 1120, Until Fri12/09/22 at 1209, Anesthesia Intra-op, Routine Rate/Dose Change 12/09/2022 11:33 AM EST 50 mcg/kg/min 23.55 mL/hr Rate/Dose Change 12/09/2022 11:27 AM EST 40 mcg/kg/min 18. 84 mL/hr New Bag 12/09/2022 11:20 AM EST 50 mcg/kg/min 23.55 mL/ hr propofoL (Diprivan) 10 mg/mL bolus injection (Anesthesia) Intravenous, PRN, Starting on Fri12/09/22 at 1123, Until Fri12/09/22 at 1209, Anesthesia Intra-op Given 12/09/2022 11:58 AM EST 20 mg Given 12/09/2022 11:51 AM EST 20 mg Given 12/09/2022 11:41 AM EST 20 mg documented in this encounter Care Teams Director Internal Audit Relationship Specialty Start Date End Date Bobby Das MD [address] [place] [address] [place] [address] PCP - General 10/02/10 documented as of this encounter
--- OUTSIDE RECORDS SUMMARY | 2024-09-17 01:30 | XMS_ITS | Encounter Summary ---
Author Organization [facility] [address] Care Team Providers Care Inspector Plumbing Name Role Phone Bobby Das MD Primary Care Provider [phone] Encounter Details Date Type Department Care Team (Latest Contact Info) Description 10/16/2022 Travel Social History Tobacco Use Types Packs/Day [...] on filedocumented in this encounter Care Teams Inspector Plumbing Relationship Specialty Start Date End Date Bobby Das MD [address] [place] [address] [place] [address] PCP - General 10/02/10 documented as of this encounter
--- OUTSIDE RECORDS SUMMARY | 2024-09-17 01:30 | XMS_ITS | Encounter Summary ---
Author Organization Formerly [facility] [place] [address] Care Team Providers Care Manufacturing Clerk Name Role Phone Bobby Das MD Primary Care Provider [phone] Reason for Visit * Auth/Cert (Routine) Specialty Diagnoses / Procedures Referred By Colby quezada Referred To Contact Diagnoses GI bleed gi bleed [place] [address] [facility] Referral ID Status Reason Start Date Expiration Date Visits Re quested Visits Authorized [id number] 1 1 Encounter Details Date Type Department Care Team (Late st Contact Info) Description 12/09/2022 10:30 AM EST - 12/09/2022 11:15 AM EST [place] [address] Giovani Ponce MD [facility] [place] [address] COLONOSCOPY, DIAGNOSTIC (WRVU 3.26) Social History Tobacco Use Types Packs/Day Years [...] Sign Reading Time Taken Comments Blood Pressure 117/68 12/09/2022 10:19 AM EST Pulse 104 12/09/2022 10:19 AM EST Temperature 37.2 ??C (98.9 ??F) 12/09/2022 10:[address] Respiratory Rate 21 12/09/2022 10:19 AM EST Oxygen Saturation 93% 12/09/2022 10:19 AM EST Inhaled Oxygen Concentration - - Weight 78.5 kg (173 lb) 12/09/2022 10:19 AM EST Height 175.3 cm (5' 9) 12/09/2022 10:19 AM EST Body Mass Index 25.55 12/09/2022 10:19 AM EST documented in this encounter Discharge Summaries * Remigio Morel MD - 12/12/2022 4:04 PM EST Inpatient - Discharge Summary Patient Name: Koko Zamora Patient Age: 82 y.o. Birthdate: 1940 Admit date: 12/08/2022 Discharge date and time: 12/12/22 Attending Physician: Aristides Hinds MD Follow-up recommendations to providers: ?? Please follow up with primary care provider for further anticoagulation management and hemogram checks ?? Please check a weekly hemogram for the next four weeks ?? Between the 2nd to 4th week after discharge, primary care provider can reassess bleeding risk and consider increasing apixaban to 5 mg BID if he continues to remain hemodynamically stable ?? Follow up with GI outpatient to monitor for possible need for polyp removal Discharge Diagnoses (Hospital Problems) and Secondary Diagnoses (Chronic Problems): Active Hospital Problems Diagnosis ??? GI bleed Resolved Hospital Problems No resolved problems to display. Active Non-Hospital Problems Diagnosis ??? Coronary artery disease involving [place] coronary artery of [place] heart without angina pectoris 05/20/22 Cath * [...] valve prolapse) s/p repair Surgery done at [facility] in 2000 ??? Hypertriglyceridemia ??? Adhesive capsulitis of L shoulder ??? Alcohol use Operations/Major Procedures: None History of Presentation: (Per admission H&P) Mr. Koko Zamora is an 82 year old male with a past medical history of CAD s/p AMPARO to ostial OM1, HFrEF (EF 30%), PAD c/b LLE ischemia s/p left common femoral transverse arteriotomy & primary repair, thromboembolectomy of SFA, profunda, and common femoral artery w/ 4 compartment fasciotomieson clopidogrel, mitral valve prolapse s/p repair (2000), Afib on rivaroxaban, upper GI bleed in 05/31 presenting in transfer from [facility] for hematochezia. ?? Mr. Zamora first had an occult GI bleeding event in 05/31, at which time he demonstrated angioectesias in duodenum which were treated with APC. He represented in June with concerns of overt bleeding, for which he was re- scoped and found to have several angioectesia lesions which were treated with argon beam coagulation. He has had symptomatic anemia since and has required several transfusions.Mr. Zamora notes that he was recently started on ferrous sulfate 325 TID qd by his PCP, and continues to take rivaroxaban 20 & clopidogrel 75 qd. ?? Patient notes that he was in his regular state of health, which involves being lightheaded upon standing and fatigue, until last night at 8 PM. He notes having urgency to defecate, which was followedby release of bright red blood per rectum. Following this event, he notes that he may have felt a slightly increased degree of lightheadedness. This morning at 8 AM, he had another episode of urgencyfollowed by bright red blood per rectum, at which point he presented to [facility] for further workup. ?? Per report, patient demonstrated the following on initial workup: - Vitals: BP 103/80, HR 80, SpO2 100% - Labs: Notable for Hb 7.9 (9.3 on 11/08/22) +2u pRBCs ?? On interview today, Mr. Zamora notes that he feels at his baseline (fatigued & lightheaded upon standing). He denies any abdominal pain/N/V/hematemesis. He has had one episode of urgency since the two above episodes described, which was associated with very minimal bright red blood as compared with other episodes. He denies use of tobacco or alcohol since May 2022, although does note priorto this time, he would drink up to 6 beers per day. Hospital Course: Koko Zamora was admitted to the medicine service on 12/08/2022 and discharged on 12/12/22. 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 Twolarge bore IVs were placed, he was started on an IV PPI, and anticoagulation was held in the setting of bleeding concern. GI was consulted with recommendations to undergo colonoscopy which showed no acute evidence of bleed and the presence of internal hemorrhoids and small sigmoid colon polyps. Cardiology was consulted regarding anticoagulation management. He was slowing escalated to clopidogrel and low-dose apixaban (from heparin drip, now discontinued) without any addition signs of bleeding and maintained hemodynamic stability. Metoprolol was also restarted, originally held in the setting of bleed to avoid tachycardia masking. He was discharged with instructions to follow up outpatient with his PCP and with GI outpatient for later polyp removal for further management. Primary Team Inpatient Physicians at [facility] was: Attending Physician(s): Aristides Hinds MD Resident(s): Augustin Lou MD; Remigio Morel MD Inpatient Provider Contact Information: If you have questions about this document please contact the [facility] neck band operator at and ask for one of the providers above. If these providers are unavailable your call will be answered by an on- call hospital physician. Important Lab Data: Recent Labs 12/12/22 0819 12/11/22 0445 12/10/22 2235 WBC 5.6 8.2 6.8 HGB 9.7* 9.4* 9.6* PLATELET 180 185 177 Recent Labs 12/12/22 0030 12/11/22 0445 12/10/22 1008 12/09/22 0030 NA 141 143 142 142 K 3.9 3.7 4.0 3.7 CO2 24 26 23 22 CL 107 106 109* 109* BUN 15 15 12 14 CREATININE 0.92 1.10 1.01 0.88 CALCIUM 8.7 8.9 8.7 8.5 MAGNESIUM -- -- -- 0.80 PHOS -- -- -- 2.8 ANIONGAP 10 11 10 11 Recent Labs 12/08/22 1751 PROT 6.1 ALBUMIN 3.8 BILITOT 1.2 BILIDIR 0.2 AST 14 ALT 20 ALKPHOS 86 No results for input(s): TROPONINT, CK in the last 168 hours. No results for input(s): TSH, HA1C, TRIG, HDL, LDLCHOL in the last 168 hours. No results for input(s): LDH, URICACID in the last 168 hours. Recent Labs 12/08/22 1751 PT 12.6* PTT 28 Other Labs: None Microbiology: Microbiology Results (last 7 days) Procedure Component Value - Date/Time COVID-19 PCR [[id number]] Collected: 12/12/22611 Lab Status: Final result Specimen: Nasopharyngeal Swab Updated: 12/12/22803 SARS-CoV-2 RNA PCR Not Detected Comment: This result should be interpreted in combination with the clinical observations, patient history and epidemiological information. For testing of asymptomatic individuals, assay performance characteristics and clinical utility have not been evaluated. Testing for SARS-CoV-2 (Severe acute respiratory syndrome coronavirus 2, formerly known as 2019 novel coronavirus or 2019-nCoV) to aid in the diagnosis of COVID-19 is performed using the Simplexa COVID-19 Direct Assay by [employer] as authorized by the FDA issued Emergency Use Authorization (EUA). This assay is intended for In-vitro Diagnostic (IVD) use with nasopharyngeal swabs collected from individuals meeting the CDC criteria for testing. The assay is performed based on the instructions for use and additional guidance provided by the FDA. Testing is performed in the Microbiology Laboratory within the Department of Pathology and Laboratory Medicine at [facility], certified under the Clinical Laboratory Improvement Amendments of 1988 (CLIA), 42 U.S.C. section 263a, to perform high complexity tests. Assay performance has been verified according to clinical laboratory regulatory requirements. Test results are provided above. A result of Not Detected indicates that the viral RNA target is not present but does not preclude SARS-CoV-2 infection. False negative results may occur if a specimen is improperly collected, transported or handled; if amplification inhibitors are present; or if inadequate numbers of viral particles are present in the specimen. A result of Detected suggests a current or recent infection and the patient is presumed to be infected. Positive and negative predictive values for this test are highly dependent on disease prevalence. A result of Invalid indicates the inability to conclusively determine the presence or absence of SARS-CoV-2 RNA in the sample which can be due to a variety of factors. Recollection is recommended in the case of an invalid result. CDC COVID-19 criteria for testing on human specimens and clinical management guidance information are available at the CDC Coronavirus Disease 2019 (COVID-19) webpage under Information for Healthcare Professionals (https://www.cdc.gov/coronavirus/2019-ncov/hcp/index.html). Additional information about this and other EUA tests can be found in provider and patient fact sheets at the following FDA website: https://www.fda.gov/medical-devices/sqiqfzntnbk-mnmdmzq-2365-bkhsy-24-enkkidvyd- npv-iiwfxbzywrdpif-ohnksyp-devices/yiriq-camucnygmil-pwqf SARS-CoV-2 Source NICKER Swab Microbiology Results (last 6 months) Procedure Component Value - Date/Time COVID-19 PCR [[id number]] Collected: 12/12/22611 Lab Status: Final result Specimen: Nasopharyngeal Swab Updated: 12/12/22803 SARS-CoV-2 RNA PCR Not Detected Comment: This result should be interpreted in combination with the clinical observations, patient history and epidemiological information. For testing of asymptomatic individuals, assay performance characteristics and clinical utility have not been evaluated. Testing for SARS-CoV-2 (Severe acute respiratory syndrome coronavirus 2, formerly known as 2019 novel coronavirus or 2019-nCoV) to aid in the diagnosis of COVID-19 is performed using the Simplexa COVID-19 Direct Assay by [employer] as authorized by the FDA issued Emergency Use Authorization (EUA). This assay is intended for In-vitro Diagnostic (IVD) use with nasopharyngeal swabs collected from individuals meeting the CDC criteria for testing. The assay is performed based on the instructions for use and additional guidance provided by the FDA. Testing is performed in the Microbiology Laboratory within the Department of Pathology and Laboratory Medicine at [facility], certified under the Clinical Laboratory Improvement Amendments of 1988 (CLIA), 42 U.S.C. section 263a, to perform high complexity tests. Assay performance has been verified according to clinical laboratory regulatory requirements. Test results are provided above. A result of Not Detected indicates that the viral RNA target is not present but does not preclude SARS-CoV-2 infection. False negative results may occur if a specimen is improperly collected, transported or handled; if amplification inhibitors are present; or if inadequate numbers of viral particles are present in the specimen. A result of Detected suggests a current or recent infection and the patient is presumed to be infected. Positive and negative predictive values for this test are highly dependent on disease prevalence. A result of Invalid indicates the inability to conclusively determine the presence or absence of SARS-CoV-2 RNA in the sample which can be due to a variety of factors. Recollection is recommended in the case of an invalid result. CDC COVID-19 criteria for testing on human specimens and clinical management guidance information are available at the CDC Coronavirus Disease 2019 (COVID-19) webpage under Information for Healthcare Professionals (https://www.cdc.gov/coronavirus/2019-ncov/hcp/index.html). Additional information about this and other EUA tests can be found in provider and patient fact sheets at the following FDA website: https://www.fda.gov/medical-devices/mgiappfycom-dthdhit-9883-zlrty-56-falvdrzae- tbc-ysterdxgvjxxwz-ecvnsif-devices/ckxzc-iaflyoxnnqp-tjyj SARS-CoV-2 Source NICKER Swab Diagnostic Studies: Colonoscopy (12/09): Impression: ? - Multiple small polyps from rectum to sigmoid colon. - Internal hemorrhoids. - No specimens collected. Pathology: None Pending Studies and Lab Data: None Discharge Conditions/Prognosis: Upon discharge the pt is hemodynamically stable, fully ambulatory without requiring supplemental oxygen, afebrile and pain free. Vital Signs on Day of Discharge: Last value Range last 24 hrs Temperature Temp: 36.3 ??C (97.3 ??F) Temp: [36.3 ??C (97.3 ??F)-36.9 ??C (98.4 ??F)] Heart Rate Heart Rate: 83 Heart Rate: [70-105] Blood Pressure BP: 114/62 BP: (102-123)/(54-65) Respiratory Rate Resp: 16 Resp: [11-21] SpO2 SpO2: 97 % SpO2: [93 %-97 %] Discharge to: Home Discharge Medications: Your Medications New Medications Dose Details apixaban 2.5 mg Tab Commonly known as: Eliquis Take 1 tablet by mouth 2 times daily. 2.5 mg Quantity: 60 tablet Refills: 3 pantoprazole EC 40 mg Tbec Commonly known as: Protonix Take 1 tablet by mouth daily. 40 mg Quantity: 90 tablet Refills: 3 Continued medications, unchanged Dose Details ascorbic acid [...] by mouth daily. 1 tablet Refills: 0 sildenafiL 100 mg Tab Commonly known as: VIAGRA Take 100 mg by mouth as needed for Erectile Dysfunction. 100 mg Refills: 0 tamsulosin 0.4 mg Cap Commonly known as: Flomax Take 0.4 mg by mouth daily. 0.4 mg Refills: 0 STOPPED Medications cephALEXin 500 mg Tab Commonly known as: KEFLEX rivaroxaban 20 mg Tab Commonly known as: Xarelto UNREVIEWED medications - Discuss With Your Provider Dose Details acetaminophen 325 mg Tab Commonly known as: Tylenol Take 2 tablets by mouth every 6 hours as needed for Pain. 650 mg Quantity: 30 tablet Refills: 1 metoprolol succinate XL 50 mg Tablet sr Commonly known as: Toprol-XL Take 1 tablet by mouth daily. 50 mg Quantity: 30 tablet Refills: 12 Updated Allergies/ADRs: Allergies Allergen Reactions ??? Aspirin Other (See Comments) GI bleed Instructions & Follow-up: Patient Instructions Instructions on Discharge to Home Why you were hospitalized - You were admitted to the hospital due to a repeat lower GI bleed. You were scoped (colonoscopy) without findings of an overt source, although you were visualized to have hemorrhoids. We suspect your repeat bleeds may be, at least in part, due to your blood thinners. As such, we trialed you first on clopidogrel, followed by apixaban (dose reduced at 2.5 mg twice daily),both of which you tolerated well. Please continue to take these. If you have repeat of episodes of bleeding, please discontinue both clopidogrel & apixaban and immediately speak to your doctor orgo to your nearest emergency room. Additionally, if you feel lightheaded, dizzy, faint, or have episodes of vomiting up blood, please seek emergency medical care. As you will be back on iron supplements, this may make your stools darker in color. As such, we are recommending once weekly lab check with your primary care provider in order to assess if you are losing blood. You have follow up scheduled for 11 AM on December 16, 2022. Call your doctor or seek medical attention if you develop the following - chest pain, shortness of breath, fever, cough, weakness in an arm or leg Activity level - no restrictions Diet - no change in previous diet Driving - as before hospitalization Shower/Bath - permitted Changes in Your Medications: New Medications: Apixaban (Eliquis) 2.5 mg twice daily (Blood thinner) Pantoprazole (Protonix): 40 mg once daily (acid suppressant) Medication dose changes: None Stop these medications: Rivaroxaban (Xarelto) Your Medications New Medications Dose Details apixaban 2.5 mg Tab Commonly known as: Eliquis Take 1 tablet by mouth 2 times daily. 2.5 mg Quantity: 60 tablet Refills: 3 pantoprazole EC 40 mg Tbec Commonly known as: Protonix Take 1 tablet by mouth daily. 40 mg Quantity: 90 tablet Refills: 3 Continued medications, unchanged Dose Details ascorbic acid [...] by mouth daily. 1 tablet Refills: 0 sildenafiL 100 mg Tab Commonly known as: VIAGRA Take 100 mg by mouth as needed for Erectile Dysfunction. 100 mg Refills: 0 tamsulosin 0.4 mg Cap Commonly known as: Flomax Take 0.4 mg by mouth daily. 0.4 mg Refills: 0 STOPPED Medications cephALEXin 500 mg Tab Commonly known as: KEFLEX rivaroxaban 20 mg Tab Commonly known as: Xarelto UNREVIEWED medications - Discuss With Your Provider Dose Details acetaminophen 325 mg Tab Commonly known as: Tylenol Take 2 tablets by mouth every 6 hours as needed for Pain. 650 mg Quantity: 30 tablet Refills: 1 metoprolol succinate XL 50 mg Tablet sr Commonly known as: Toprol-XL Take 1 tablet by mouth daily. 50 mg Quantity: 30 tablet Refills: 12 Follow-up: Future Appointments Date Time Provider Department Center 05/27/2023 11:00 AM Giovani Ponce MD [facility] GASTRO [facility] 12/16/2022 11:[address] Bobby Reilly [facility] [place] Your Inpatient Doctor: MD Aristides Hughes MD Aditya Sharma, MD Your Primary Care Provider: Bobby Das MD [phone] For questions regarding this document or issues relating to this hospitalization on the Medical Service, please contact your inpatient physician through the [facility] Central Processing Tech . Issues afterhours and on weekends will be handled by the Hospitalist staff on-call. General Instructions Colonoscopy: What to Expect at Home Your Recovery Your doctor will talk to you about when you will need your next colonoscopy. Your doctor can help you decide how often you need to be checked. This will depend on the results of your test and your risk for colorectal cancer. After the test, you may be bloated or have gas pains. You may need to pass gas. If a biopsy was done or a polyp was removed, you may have streaks of blood in your stool (feces) for a few days. Problems such as heavy rectal bleeding may not occur [...] home? Activity Rest when you feel tired. ?? You can do your normal activities when it feels okay to do so. Diet ?? Follow your doctor's directions for eating. ?? Unless your doctor has told you not to, drink plenty of fluids. This helps to replace the fluidsthat were lost during the colon prep. ?? Do not drink alcohol. Medicines ?? Your doctor will tell you if and when you can restart your medicines. He or she will also give you instructions about taking any new medicines. ?? If you take blood thinners, such as warfarin (Coumadin), clopidogrel (Plavix), or aspirin, be sure to talk to your doctor. He or she will tell you if and when to start taking those medicines again. Make sure that you understand exactly what your doctor wants you to do. ?? If polyps were removed or a biopsy was done during the test, your doctor may tell you not to take aspirin or other anti-inflammatory medicines for a few days. These include ibuprofen (Advil, Motrin) and naproxen (Aleve). Other instructions ?? For your safety, do not drive or operate machinery until the medicine wears off and you can think clearly. Your doctor may tell you not to drive or operate machinery until the day after your test. ?? Do not sign legal documents or make major decisions until the medicine wears off and you can think clearly. The anesthesia can make it hard for you to fully understand what you are agreeing to. Additional Information for Sedation Patients For patients who received sedation: ?? You may have received medications before and/or during your procedure which effects your judgement and reaction time. ?? Do not drive, operate machinery, drink alcoholic beverages or make important decisions for 24 hours. ?? Be careful on stairs as you may be unsteady on your feet. ?? You may eat a regular diet as tolerated. ?? Do not smoke if you are alone. ?? IV site: Slight redness or tenderness is normal, you can use a warm compress if you would like. If tenderness and/or redness increase or if foul drainage occurs, please contact your Doctor. Please call [phone] before 8pm Mon-Fri with problems, questions or concerns. If you call after 8pm or on weekends, call the Hospital at [phone] and ask to speak to the Financial Analyst environmental sustainability manager and the neck band operator will contact that person for you. When should you call for help? Call 265 anytime you think you may need emergency care. For example, call if: ?? You passed out (lost consciousness). ?? You pass maroon or bloody stools. ?? You have trouble breathing. Call your doctor now or seek immediate medical care if: ?? You have pain that does not get better after you take pain medicine. ?? You are sick to your stomach or cannot drink fluids. ?? You have new or worse belly pain. ?? You have blood in your stools. ?? You have a fever. ?? You cannot pass stools or gas. Watch closely for changes in your health, and be sure to contact your doctor if you have any problems. Where can you learn more? [facility] View your After Visit Summary and more online at [email or web address] If you would like to provide feedback about your hospital experience, please call the Office of Patient and Family Relations at . If you have received this After Visit Summary in error, please immediately return it in person to the department, or notify the [facility] Privacy Office by calling toll free at between the hours of 8AM and 5PM to arrange for our retrieval of the documents at no cost to you. Content Version: 12.2 ?? [id number] [employer]. Care instructions adapted under license by [facility]. If you have questions about a medical condition or this instruction, always ask your healthcare professional. [employer] disclaims any warranty or liability for your use of this information. Discharge References/Attachments None To-Do List To-Do List Future Appointments Provider Department Dept Phone 05/27/2023 11:00 AM Giovani Ponce MD Gastroenterology at [facility] Arrive at: Station Engineer Area [phone] Future Orders Complete By Expires CBC (with Diff) [[id number] Custom] 12/19/2022 (Approximate) 06/20/2023 Process Instructions: Scheduling Instructions: Comments: Questions: Provider Contact Information: Bobby Das MD [address] [place] [address] / [facility] [phone] Signed: Remigio Morel MD Discharged: 12/12/2022 documented in this encounter Discharge Instructions * Discharge Instructions* Diana Garrett RN - 12/09/2022 12:16 PM EST Colonoscopy: What to Expect at Home Your Recovery Your doctor will talk to you about when you will need your next colonoscopy. Your doctor can help you decide how often you need to be checked. This will depend on the results of your test and your risk for colorectal cancer. After the test, you may be bloated or have gas pains. You may need to pass gas. If a biopsy was done or a polyp was removed, you may have streaks of blood in your stool (feces) for a few days. Problems such as heavy rectal bleeding may not occur [...] occurs, please contact your Doctor. Please call [phone] before 8pm Mon-Fri with problems, questions or concerns. If you call after 8pm or on weekends, call the Hospital at [phone] and ask to speak to the Financial Analyst environmental sustainability manager and the neck band operator will contact that person for you. When should you call for help? Call 250 anytime you think you may need emergency [...] any problems. Where can you learn more? [facility] View your After Visit Summary and more online at [email or web address] If you would like to provide feedback about your hospital experience, please call the Office of Patient and Family Relations at . If you have received this After Visit Summary in error, please immediately return it in person to the department, or notify the [facility] Privacy Office by calling toll free at between the hours of 8AM and 5PM to arrange for our retrieval of the documents at no cost to you. Content Version: 12.2 ?? [id number] [employer]. Care instructions adapted under license by [facility]. If you have questions about a medical condition or this instruction, always ask your healthcare professional. [employer] disclaims any warranty or liability for your use of this information. * Patient Instructions* Augustin Lou MD - 12/12/2022 8:15 AM EST Instructions on Discharge to Home Why you were hospitalized - You were admitted to the hospital due to a repeat lower GI bleed. You were scoped (colonoscopy) without findings of an overt source, although you were visualized to have hemorrhoids. We suspect your repeat bleeds may be, at least in part, due to your blood thinners. As such, we trialed you first on clopidogrel, followed by apixaban (dose reduced at 2.5 mg twice daily),both of which you tolerated well. Please continue to take these. If you have repeat of episodes of bleeding, please discontinue both clopidogrel & apixaban and immediately speak to your doctor orgo to your nearest emergency room. Additionally, if you feel lightheaded, dizzy, faint, or have episodes of vomiting up blood, please seek emergency medical care. As you will be back on iron supplements, this may make your stools darker in color. As such, we are recommending once weekly lab check with your primary care provider in order to assess if you are losing blood. You have follow up scheduled for 11 AM on December 16, 2022. Call your doctor or seek medical attention if you develop the following - chest pain, shortness of breath, fever, cough, weakness in an arm or leg Activity level - no restrictions Diet - no change in previous diet Driving - as before hospitalization Shower/Bath - permitted Changes in Your Medications: New Medications: Apixaban (Eliquis) 2.5 mg twice daily (Blood thinner) Pantoprazole (Protonix): 40 mg once daily (acid suppressant) Medication dose changes: None Stop these medications: Rivaroxaban (Xarelto) Your Medications New Medications Dose Details apixaban 2.5 mg Tab Commonly known as: Eliquis Take 1 tablet by mouth 2 times daily. 2.5 mg Quantity: 60 tablet Refills: 3 pantoprazole EC 40 mg Tbec Commonly known as: Protonix Take 1 tablet by mouth daily. 40 mg Quantity: 90 tablet Refills: 3 Continued medications, unchanged Dose Details ascorbic acid [...] by mouth daily. 1 tablet Refills: 0 sildenafiL 100 mg Tab Commonly known as: VIAGRA Take 100 mg by mouth as needed for Erectile Dysfunction. 100 mg Refills: 0 tamsulosin 0.4 mg Cap Commonly known as: Flomax Take 0.4 mg by mouth daily. 0.4 mg Refills: 0 STOPPED Medications cephALEXin 500 mg Tab Commonly known as: KEFLEX rivaroxaban 20 mg Tab Commonly known as: Xarelto UNREVIEWED medications - Discuss With Your Provider Dose Details acetaminophen 325 mg Tab Commonly known as: Tylenol Take 2 tablets by mouth every 6 hours as needed for Pain. 650 mg Quantity: 30 tablet Refills: 1 metoprolol succinate XL 50 mg Tablet sr Commonly known as: Toprol-XL Take 1 tablet by mouth daily. 50 mg Quantity: 30 tablet Refills: 12 Follow-up: Future Appointments Date Time Provider Department Center 05/27/2023 11:00 AM Giovani Ponce MD [facility] GASTRO [facility] 12/16/2022 11:[address] Bobby Reilly [facility] [place] Your Inpatient Doctor: MD Aristides Hughes MD Aditya Sharma, MD Your Primary Care Provider: Bobby Das MD [phone] For questions regarding this document or issues relating to this hospitalization on the Medical Service, please contact your inpatient physician through the [facility] Central Processing Tech . Issues afterhours and on weekends will be handled by the Hospitalist staff on-call. documented in this encounter Medications at Time of Discharge Medication Sig Dispensed Refills Start Date End Date apixaban (Eliquis) 2.5 mg Tablet Take 1 tablet by mouth 2 times daily. 60 tablet 3 12/12/2022 fluticasone propionate (FLONASE) 50 mcg/actuation [place], Suspension 1 spray by Each Nare route [...] ORAL) Take 1 tablet by mouth daily. pantoprazole EC (Protonix) 40 mg Tablet, Delayed Release (E.C.) Take 1 tablet by mouth daily. 90 tablet 3 12/12/2022 11/05/2023 acetaminophen (Tylenol) 325 mg Tablet Take 2 [...] total 11/12/2023 documented as of this encounter Progress Notes * Aristides Hinds MD - 12/12/2022 4:00 PM EST Hospital Medicine - Attending Day of Discharge Documentation Discharge diagnosis Active Hospital Problems Diagnosis ??? GI bleed Resolved Hospital Problems No resolved problems to display. Secondary Issues Active Non-Hospital Problems Diagnosis ??? Coronary artery disease involving [place] coronary artery of [place] heart without angina pectoris ??? HFrEF (heart failure with reduced ejection fraction) ??? Permanent atrial fibrillation ??? Limb ischemia ??? History of basal cell carcinoma ??? Basal cell carcinoma ??? Verruca vulgaris ??? AK (actinic keratosis) ??? GIB (gastrointestinal bleeding) ??? MVP (mitral valve prolapse) s/p repair ??? Hypertriglyceridemia ??? Adhesive capsulitis of L shoulder ??? Alcohol use I have personally seen and examined the patient and they are ready for discharge. Select the appropriate statement that describes your involvement and care and omit the other: I spent >30 minutes (Day of Discharge Code 78703) involved in the final examination of the patient, discussion of the hospital stay, instructions for continuing care to all relevant caregivers, and preparation of discharge records, prescriptions and referral forms. Plans ? Discharge to Home ? Follow-up scheduled with PCP ? Please see the Discharge Summary for complete details of any medication changes and additional plans. * Brittany Avila RN - 12/12/2022 1:39 PM EST Assumed care of pt at 1000. A+Ox4, VSS. 1330: D/c order received. AVS reviewed w/ pt and family, all questions answered. IVs removed. Pt ambulated independently to exit. * Brittany Avila RN - 12/12/2022 11:30 AM EST Oxygen is required: N/A Oxygen saturations documented Resting on Room Air: 94% (Please document below the Activity Saturations if Resting saturations are >88%) Activity on Room Air: 93% Sats collected by: DION DELEON Date Sats Collected: 12/12/2022 Mobility: Patient is mobile. Route: RA * Evelia Covington OT - 12/12/2022 10:12 AM EST Occupational Therapy Evaluation Patient profile: Koko Zamora is a 82 y.o. 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 No past medical history on file. Past [...] [facility] INTERVENTIONL RAD ??? PRO COLONOSCOPY, DIAGNOSTIC N/A 12/09/2022 COLONOSCOPY, DIAGNOSTIC performed by Giovani Ponce MD at [facility] ENDOSCOPY ??? PRO COLONOSCOPY, FLEX, W/CONTROL, BLEEDING N/A 06/25/2022 COLONOSCOPY; W CONTROL OF BLEEDING, ANY METHOD performed by Giovani Ponce MD at [facility] ENDOSCOPY ??? PRO EMBLC/THRMBC FEMORAL POPLITEAL AORTO-ILIAC ARTERY Left 05/15/2022 EMBOLECTOMY OR THROMBECTOMY, FEMOROPOPLITEAL, AORTOILIAC ARTERY BY LEG INCISION (WRVU 19.48) performed by Fito Summers MD at [facility] MAIN OR ??? PRO SMALL BOWEL ENDOSCOPY, PAST 2ND DUOD N/A 06/25/2022 SMALL BOWEL ENTEROSCOPY performed by Giovani Ponce MD at [facility] ENDOSCOPY ??? PRO UPPER GI ENDOSCOPY, CTRL BLEED 05/31/2022 EGD, W CONTROL OF BLEEDING, ANY METHOD performed by Giovani Ponce MD at [facility] ENDOSCOPY ??? PRO UPPER GI ENDOSCOPY, DIAGNOSTIC N/A 05/31/2022 EGD, UPPER GI ENDOSCOPY performed by Giovani Ponce MD at [facility] ENDOSCOPY ??? PRO UPPER GI ENDOSCOPY, DIAGNOSTIC N/A 06/25/2022 EGD, UPPER GI ENDOSCOPY performed by Giovani Ponce MD at [facility] ENDOSCOPY Social History: Patient lives with his in a private home Home Setup: 5 SILVIA with railing. Once inside, able to stay on the main level. Walk in shower, no chair. Regular bed DME: RW, commode Baseline ADL/Mobility: Independent all ADL/IADL tasks. Drives. Ambulates w/o any AD. Active. can also assist Precautions/Special Considerations: Droplet precautions; Regular diet Subjective: Lets see if I get short of breath with this walk Objective: Seen today for OT evaluation. Cognitive Status/Behavior: ?? Behavior / Mood: alert and cooperative ?? Alert and oriented to: person, place, time and situation ?? Follows commands: multi step and 100% of the time ?? Attention: WFL ?? Safety awareness: WFL Vision & Perception: ?? WNL/WFL Communication: WFL Range of motion, strength, coordination: Bilateral UE/LEs are within functional limitations Activities of Daily Living: Self-feeding: Independent Grooming: Independent Dressing: Independent Bathing: Independent sponge bathe standing sinkside Toileting: Transfer: Independent Hygiene: Independent Functional Mobility: Supine to sit: Independent Sit to stand: Independent Ambulation: Independent ambulate 200 feet, no AD Stand to sit: Independent Sit to supine: N/A Balance: Sitting balance: Good Standing balance: Good Vitals: BP 123/65; HR 97-130's; Sp02 96% on RA Pain: Denies Education: patient has been educated on Role of occupational therapy/rehabilitation, ADL, Functional Mobility, Home Management, Recommendations and Discharge planning and verbalizes understanding. Patient status, treatment, and mobility recommendations discussed with nursing. Assessment: Pt has been seen for occupational therapy evaluation. Upon arrival, patient was alert, pleasant and motivated to participate. He demonstrated the ability to independently complete ADL tasks and ambulate 200 feet without any AD. He lives with is who can provide assistance as needed.Anticipate that pt will return home with assistance once medically ready. Do not anticipate furtherOT needs while hospitalized. Equipment Recommendations: Equipment Needs Upon Discharge (OT): None Anticipated Discharge Disposition (OT): home Other Recommendations: ?? Utilize upright chair position using bed features or transfer to recliner chair as appropriate with supervision (only due to lines), ambulate as tolerated ?? Encourage participation in ADL's by providing set up A on tray table and physical assist only asneeded Plan: OT: Therapy Frequency (OT): evaluation only Total Minutes, Occupational Therapy: 47 (9:43-10:20) OT Evaluation Code Rationale: ?? Diagnosis & Pertinent Co-Morbidities affecting Plan of Care: see PMHx ?? Occupational Profile & Client History: Brief Expanded Extensive x ?? Assessment of Occupational Performance: 1-3 performance deficits x 3-5 performance deficits 5 + performance deficits ?? Clinical Decision Making: Low Moderate High x Clinical decision making of low complexity using standardized patient assessment instrument and measurable assessment of functional outcome. Pager: [phone] EVELIA COVINGTON OT 12/12/2022 Occupational Therapy Rehabilitation Department * Remigio Morel MD - 12/11/2022 7:02 AM EST [facility] Inpatient Progress Note Date: 12/11/22 Patient Information: Koko Zamora [id number] PCP: Bobby Das MD PCP Admit Date: 12/08/2022 4:21 PM Hospital Day 3 days Patient ID: Mr. Zamora is an 82 year old male with a PMH of duodenal & colonic angiectesias, CAD s/p AMPARO to OM1 on clopidogrel, PAD s/p multiple vascular interventions, Afib on rivaroxaban, and HFrEF (EF 30%) presenting with bright red blood per rectum. Interval History/Subjective - Overnight: NAEON - This AM: Hb stable, denies abd pain, actively bleeding, blood in stool, no additional acute complaints Physical Exam: Vitals: Latest Value 24 Hour Range Temperature Temp: 36.8 ??C (98.2 ??F) Temp: [36.5 ??C (97.7 ??F)-37 ??C (98.6 ??F)] Blood Pressure BP: 107/60 BP: (66-117)/(39-65) Heart Rate Heart Rate: 93 Heart Rate: [75-93] Respiration Rate Resp: 19 Resp: [10-21] O2 Saturation SpO2: 96 % SpO2: [92 %-99 %] Ins and Outs: Intake/Output Summary (Last 24 hours) at 12/11/2022 0702 Last data filed at 12/11/2022 0400 Gross per 24 hour Intake 2362.43 ml Output 2055 ml Net 307.43 ml Gen: NAD. HEENT: Mucous membranes moist. NO CV: Irregularly irregular. No M/R/G. Pulm: clear to ascultation bilaterally in the posterior lung alfred. Abd: BS +. No tenderness or pain on palpation. Ext: Minimal non-pitting edema above the ankles bilaterally. Pulses present. Neuro: alert and appropriate. Non-focal. Grossly intact. Psych: cooperative. Labs: Recent Labs 12/11/22 0445 12/10/22 2235 12/10/22 0920 12/09/22 1742 12/09/22 0030 WBC 8.2 6.8 6.3 5.8 7.3 HGB 9.4* 9.6* 9.4* 9.0* 9.2* HCT 30.6* 31.4* 30.1* 28.8* 29.3* PLATELET 185 177 180 167 183 MCV 85.7 86.7 87.0 85.0 85.2 Recent Labs 12/10/22 1008 12/09/22 0030 12/08/22 1751 NA 142 142 138 CL 109* 109* 107 CO2 22 K 4.0 3.7 4.0 MAGNESIUM -- 0.80 -- PHOS -- 2.8 -- CALCIUM 8.7 8.5 8.7 BUN 12 14 16 CREATININE 1.01 0.88 0.87 LFTs Recent Labs 12/08/22 1751 PROT 6.1 ALBUMIN 3.8 AST 14 ALT 20 ALKPHOS 86 BILITOT 1.2 BILIDIR 0.2 Coags Recent Labs 12/08/22 1751 INR 1.1 PT 12.6* PTT 28 Cardiac Enzymes No results for input(s): CK, TROPONINT, PROBNP in the last 168 hours. Endocrine Recent Labs 05/31/22 1120 05/18/221999 TSH 1.67 2.27 No results for input(s): POCGLU in the last 168 hours. Heme No results for input(s): LDH, HAPTOGLOBIN, URICACID in the last 168 hours. ABG (Arterial Blood Gas) No results found for: PHART, PO2ART, KYE4EMC, [id number] Microbiology: Microbiology Results (Last 30 days) No results found for the last 720 hours. Imaging: No results found for this visit on 12/08/22. Medications Scheduled Meds: ??? clopidogreL 75 mg Oral Daily ??? rosuvastatin 40 mg Oral Daily ??? tamsulosin 0.4 mg Oral Daily ??? sodium chloride 0.9 % (flush) 5 mL Intravenous BID ??? pantoprazole 40 mg Intravenous BID Continuous Infusions: ??? heparin (porcine) infusion 1,100 Units/hr (12/11/22 0526) PRN Meds:.heparin (porcine) infusion AND heparin (porcine), carboxymethylcellulose, sodium chloride 0.9 % (flush), lidocaine Assessment and Plan Mr. Zamora is an 82 year old male with a PMH of duodenal & colonic angiectesias, CAD s/p AMPARO to OM1 on clopidogrel, PAD s/p multiple vascular interventions, Afib on rivaroxaban, and HFrEF (EF 30%) presenting with bright red blood per rectum. Given his presentation today mimics his presentation from 07/01, highest on the differential for lower GI bleeding source would be a colonic angiectasia vs AVM. Further, his use of anti-platelet &anticoagulation has led to multiple episodes of bleeding and therefore may be contributing to his propensity to develop recurrent GI bleeds. EGD and colonoscopy showed no acute sources of bleed. Cardi ology was consulted regarding anticoagulation management to reduce bleeding risk with recommendations of escalation with clopidogrel followed by heparin drip with escalation to low-dose apixaban today. Will stop heparin drip. Rest of plan as follows: #Bright red blood per rectum #Lower GI bleed #Hx of Colonic & duodenal angiectasias - IV PPI 40 BID - Two large-bore IVs - Colonoscopy without acute bleed - HDS, restarting antigoaulation - Appreciate GI recommendations ?? #HFrEF (EF 28%) #CAD s/p AMPARO to OM1 #PAD s/p multiple vascular interventions #Atrial fibrillation - Anticoagulation: plavix, low-dose apixaban - Stopped heparin drip - Hold metoprolol in setting of BRBPR to avoid masking of tachycardia, should patient become hypovolemic from blood loss - If tolerating apixaban, consider increasing dose outpatient - Appreciate cardiology recommendations #Other: Diet: Regular diet DVT Ppx: SCDs GI Ppx: IV PPI Dispo: pending clinical course Code Status: Attempt Cardiopulmonary Resuscitation - Inpatient Remigio Morel MD 12/11/22 7:02 AM Internal Medicine, PGY-1 Pager: [phone] Associated attestation - Aristides Hinds MD - 12/11/2022 1:12 PM EST Attending Attestation and Certification Please see Remigio Morel MD's note for details of the patient history of presentation and data. I have discussed, reviewed and agree with the documented History, Physical findings, Assessment and Planof care. I have examined the patient myself and personally reviewed all studies. In addition, I certify thatI am a D-H credentialed attending provider with admitting privileges and that the patient meets or has met medical necessity to require an inpatient IPI level of care meeting a minimum of two midnights or is on the [facility] inpatient only procedure list (status C) due to: #Lower GI bleed with underlying# Colonic & duodenal angiectasias. * Barbara Yuan RN - 12/11/2022 12:52 AM EST OUTCOME EVALUATION NOTE: OUTCOME SUMMARY: A/Ox4, VSS on RA. Req 2L w/ sleep 2/2 FINESSE. HGB stable wit recheck and UFH mildly supra therapeutic at 2230, rate decreased to 1100u/hr. No signs of bleeding and no BM this shift. AUOP usinf urinal independently. PLAN MOVING FORWARD: INDIVIDUALIZED FALL PREVENTION INTERVENTIONS: Patient-specific fall risk factors per assessment: [current deficits]: Cords/lines, weakness Assistance [level of assistance required for transfers and ambulation]: SBA Supervision [direct monitoring required during toileting and ADLs]: SBA Surveillance [continuous indirect monitoring]: Purposeful rounding, call boo within reach, room near nurses station Patient-specific fall prevention interventions for sensory deficits provided, if applicable: [X] N/A CPG GOAL OUTCOME EVALUATION: * Remigio Morel MD - 12/10/2022 8:01 AM EST [facility] Inpatient Progress Note Date: 12/10/22 Patient Information: Koko Zamora [id number] 1940 PCP: Bobby Das MD PCP Admit Date: 12/08/2022 4:21 PM Hospital Day 2 days Patient ID: Interval History/Subjective - Overnight: NAEON - This AM: Hb stable, denies abd pain, actively bleeding, blood in stool, no additional acute complaints Physical Exam: Vitals: Latest Value 24 Hour Range Temperature Temp: 36.5 ??C (97.7 ??F) Temp: [36.5 ??C (97.7 ??F)-37.3 ??C (99.1 ??F)] Blood Pressure BP: 111/57 BP: (85-158)/(42-76) Heart Rate Heart Rate: 90 Heart Rate: [67-105] Respiration Rate Resp: 16 Resp: [10-27] O2 Saturation SpO2: 96 % SpO2: [90 %-100 %] Ins and Outs: Intake/Output Summary (Last 24 hours) at 12/10/2022 1046 Last data filed at 12/10/2022 1000 Gross per 24 hour Intake 1300 ml Output 1915 ml Net -615 ml Gen: NAD. HEENT: Mucous membranes moist. NO CV: Irregularly irregular. No M/R/G. Pulm: clear to ascultation bilaterally in the posterior lung alfred. Abd: BS +. No tenderness or pain on palpation. Ext: Minimal non-pitting edema above the ankles bilaterally. Pulses present. Neuro: alert and appropriate. Non-focal. Grossly intact. Psych: cooperative. Labs: Recent Labs 12/10/22 0920 12/09/22 1742 12/09/22 0030 12/08/22 1751 WBC 6.3 5.8 7.3 6.6 HGB 9.4* 9.0* 9.2* 9.4* HCT 30.1* 28.8* 29.3* 29.9* PLATELET 180 167 183 184 MCV 87.0 85.0 85.2 86.2 Recent Labs 12/09/22 0030 12/08/22 1751 NA 142 138 CL 109* 107 CO2 22 22 K 3.7 4.0 MAGNESIUM 0.80 -- PHOS 2.8 -- CALCIUM 8.5 8.7 BUN 14 16 CREATININE 0.88 0.87 LFTs Recent Labs 12/08/22 1751 PROT 6.1 ALBUMIN 3.8 AST 14 ALT 20 ALKPHOS 86 BILITOT 1.2 BILIDIR 0.2 Coags Recent Labs 12/08/22 1751 INR 1.1 PT 12.6* PTT 28 Cardiac Enzymes No results for input(s): CK, TROPONINT, PROBNP in the last 168 hours. Endocrine Recent Labs 05/31/22 1120 05/18/221999 TSH 1.67 2.27 No results for input(s): POCGLU in the last 168 hours. Heme No results for input(s): LDH, HAPTOGLOBIN, URICACID in the last 168 hours. ABG (Arterial Blood Gas) No results found for: PHART, PO2ART, [id number], [id number] Microbiology: Microbiology Results (Last 30 days) No results found for the last 720 hours. Imaging: No results found for this visit on 12/08/22. Medications Scheduled Meds: ??? clopidogreL 75 mg Oral Daily ??? rosuvastatin 40 mg Oral Daily ??? tamsulosin 0.4 mg Oral Daily ??? sodium chloride 0.9 % (flush) 5 mL Intravenous BID ??? pantoprazole 40 mg Intravenous BID Continuous Infusions: ??? heparin (porcine) infusion 1,200 Units/hr (12/10/22 1025) PRN Meds:.heparin (porcine) infusion AND heparin (porcine), carboxymethylcellulose, sodium chloride 0.9 % (flush), lidocaine Assessment and Plan Mr. Zamora is an 82 year old male with a PMH of duodenal & colonic angiectesias, CAD s/p AMPARO to OM1 on clopidogrel, PAD s/p multiple vascular interventions, Afib on rivaroxaban, and HFrEF (EF 30%) presenting with bright red blood per rectum. Given his presentation today mimics his presentation from 07/01, highest on the differential for lower GI bleeding source would be a colonic angiectasia vs AVM. Further, his use of anti-platelet &anticoagulation has led to multiple episodes of bleeding and therefore may be contributing to his propensity to develop recurrent GI bleeds. EGD and colonoscopy showed no acute sources of bleed. Cardi ology was consulted regarding anticoagulation management to reduce bleeding risk with recommendations of escalation with clopidogrel followed by heparin drip today. If he shows signs of bleeding, he may need a watchman device. If not, they agree with potential transition to apixaban on discharge from rivaroxaban. Rest of plan as follows: #Bright red blood per rectum #Lower GI bleed #Hx of Colonic & duodenal angiectasias - IV PPI 40 BID - Two large-bore IVs - Clear liquid diet; prep for colo tomorrow, NPO at midnight - Hold anticoagulation & anti-platelet agents in setting of recent BRBPR - Appreciate GI recommendations ?? #HFrEF (EF 28%) #CAD s/p AMPAOR to OM1 #PAD s/p multiple vascular interventions #Atrial fibrillation - Restarted plavix, starting heparin drip today - If bleed, may need watchman (no need for rivaroxaban) - If not, may discharge on anticoagulation (apixaban vs. rivaroxaban) - Pending insurance confirmation of apixaban - Hold metoprolol in setting of BRBPR to avoid masking of tachycardia, should patient become hypovolemic from blood loss #Other: Diet: Regular diet DVT Ppx: SCDs GI Ppx: IV PPI Dispo: pending clinical course Code Status: Attempt Cardiopulmonary Resuscitation - Inpatient Remigio Morel MD 12/10/22 10:46 AM Internal Medicine, PGY-1 Pager: [phone] Associated attestation - Aristides Hinds MD - 12/11/2022 1:12 PM EST Attending Attestation and Certification Please see Remigio Morel MD's note for details of the patient history of presentation and data. I have discussed, reviewed and agree with the documented History, Physical findings, Assessment and Planof care. I have examined the patient myself and personally reviewed all studies. In addition, I certify thatI am a D-H credentialed attending provider with admitting privileges and that the patient meets or has met medical necessity to require an inpatient IPI level of care meeting a minimum of two midnights or is on the [facility] inpatient only procedure list (status C) due to: #Lower GI bleed with underlying# Colonic & duodenal angiectasias. * Chadwick Farrar RN - 12/09/2022 7:36 PM EST Pt had colonoscopy done today. Tolerated procedure well. Regular diet initiated. Tolerated meals. .Safety ensured. Hb level stable at 9. No active bleeding. Remains alert and oriented x 4 * Diana Garrett RN - 12/09/2022 12:33 PM EST Patient alert and oriented; VSs stable on RA. Patient denies pain, n/v s/p colonoscopy. Report given to DION Genao. * Alan August MD - 12/09/2022 9:31 AM EST Images from the original note were not included. DIVISION OF GASTROENTEROLOGY & HEPATOLOGY CONSULT PROGRESS NOTE NAME: Koko Zamora : 1940 ID: 82yo M w/PMH of??remote mitral valve repair (2000), prediabetes, hyperlipidemia, significant alcohol use, and tobacco use, admitted in summer 2021 to??Vascular Surgery??w/acute??LLE limb ischemiafor which he underwent left femoral cutdown with thromboembolectomy,?? and HFrEF, currently on??plavix (necessary iso AMPARO) and rivaroxaban (Afib, leg thrombosis), who presented to OSH w/recurrent symptomatic anemia now transferred to [facility] for further care. INTERVAL: - Completed prep overnight with no issues. Reports that what is coming out is clear. Plan for colonoscopy later today. - No need for blood transfusions for now - AF, HDS, WNL - Last HgB 9.2 Past Medical History, Surgical History, Family History, Social History as noted in initial consult note MEDICATIONS: Scheduled: ??? rosuvastatin 40 mg Oral Daily ??? tamsulosin 0.4 mg Oral Daily ??? sodium chloride 0.9 % (flush) 5 mL Intravenous BID ??? pantoprazole 40 mg Intravenous BID Drips: PRN: carboxymethylcellulose, sodium chloride 0.9 % (flush), lidocaine Allergies Allergen Reactions ??? Aspirin Other (See Comments) GI bleed VITALS: T Temp: [36.4 ??C (97.5 ??F)-37.6 ??C (99.7 ??F)] HR Heart Rate: [79-107] BP BP: (96-135)/(55-74) RR Resp: [12-27] SpO2 SpO2: [89 %-98 %] 12/08 0701 - 12/09 0700 In: 1920 [P.O.:1920] Out: 200 [Urine:200] Wt Last Admit PHYSICAL EXAM: GEN: Awake, alert, oriented, no acute distress HEENT: sclerae anicteric, moist mucous membranes RESP: Air entry equal bilaterally, no obvious rales/rhonchi CARDIAC: RRR, normal S1/S2, no appreciable murmurs ABDOMEN: Soft, non-tender, non-distended, normoactive bowel sounds EXTREM: Warm, no edema NEURO: Grossly intact, moves all extremities SKIN: No jaundice LABS: CBC: Recent Labs 12/09/22 0030 12/08/22 1751 WBC 7.3 6.6 HGB 9.2* 9.4* HCT 29.3* 29.9* PLATELET 183 184 MCV 85.2 86.2 RDWCV 20.3* 20.1* COAG: Recent Labs 12/08/22 1751 PTT 28 INR 1.1 CHEM: Recent Labs 12/09/22 0030 12/08/22 1751 GLUCOSE 151 201* NA 142 138 K 3.7 4.0 CL 109* 107 CO2 22 22 BUN 14 16 CREATININE 0.88 0.87 ALBUMIN -- 3.8 MAGNESIUM 0.80 -- CALCIUM 8.5 8.7 HEPATIC: Recent Labs 12/08/22 1751 ALKPHOS 86 ALT 20 AST 14 BILITOT 1.2 BILIDIR 0.2 INFLAMM: No results for input(s): CRP in the last 168 hours. Invalid input(s): ESR IMAGING: Images and reports personally reviewed in eD No orders to display ENDOSCOPY: Colonoscopy 06/2022: Impression: ?- The examined portion of the ileum ?was normal. ?- Two small polyps in the sigmoid ?colon and in the transverse colon. ?Resection not attempted in the ?context of recent GI bleeding and ?antiplatelet use. 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 Treated with argon ?beam coagulation. Clip was placed. ?- No specimens collected ?? EGD 06/2022: Impression: ?- Normal esophagus. ?- Normal stomach. ?- A single non-bleeding ?Angioectasia in the duodenum. ?Treated with argon beam coagulation. ?- Four non-bleeding angioectasias ?in the proximal jejunum. Treated ?with argon beam coagulation. ?- No specimens collected. ASSESSMENT & PLAN: 82yo M w/PMH of??remote mitral valve repair (2000), prediabetes, hyperlipidemia, significant alcohol use, and tobacco use, admitted in summer 2021 to??Vascular Surgery??w/acute??LLE limb ischemia forwhich he underwent left femoral cutdown with thromboembolectomy,?? and HFrEF, currently on??plavix (necessary iso AMPARO) and rivaroxaban (Afib, leg thrombosis), who presented to OSH w/recurrent sympto matic anemia now transferred to [facility] for further care. With reported hematochezia, the plan today is to proceed with colonoscopy to potentially identify a LGIB source. He completed the prep with no issues and is ready for the exam later today; please keep NPO until that time. As for his plavix and r ivaroxaban, would be prudent and helpful to understand how long he needs to be on these agents, as suspect he will continue to have issues with bleeding while on these. ?? Recommendations: - 2 large bore IVs - Active T&S - Transfuse for Hgb > 7 - Colonoscopy today - Would be helpful to determine how long needs to be on plavix, rivaroxaban ?? Patient will be discussed with Dr. Ponce. Alan August MD PGY-5, Gastroenterology Associated attestation - Givoani Ponce MD - 12/09/2022 11:19 AM EST I have independently seen and examined the patient, and have reviewed the resident???s above note, and agree with the documented history, physical findings, and study results; my evaluation of the patient is below: I met with Mr Zamora and agree with the plan for colonoscopy as outlined by Dr Mata Ponce MD * Remigio Morel MD - 12/09/2022 6:14 AM EST [facility] Inpatient Progress Note Date: 12/09/22 Patient Information: Koko Zamora [id number] 1940 PCP: Bobby Das MD PCP Admit Date: 12/08/2022 4:21 PM Hospital Day 1 day Patient ID: Interval History/Subjective - Overnight: NAEON - This AM: Hb stable, denies abd pain, actively bleeding, blood in stool, no additional acute complaints Physical Exam: Vitals: Latest Value 24 Hour Range Temperature Temp: 37 ??C (98.6 ??F) Temp: [36.4 ??C (97.5 ??F)-37.3 ??C (99.1 ??F)] Blood Pressure BP: 128/68 BP: (118-135)/(58-74) Heart Rate Heart Rate: 86 Heart Rate: [79-91] Respiration Rate Resp: 14 Resp: [14-27] O2 Saturation SpO2: 94 % SpO2: [89 %-97 %] Ins and Outs: Intake/Output Summary (Last 24 hours) at 12/09/2022 0614 Last data filed at 12/08/2022 2300 Gross per 24 hour Intake 1920 ml Output 200 ml Net 1720 ml Gen: NAD. HEENT: Mucous membranes moist. NO CV: Irregularly irregular. No M/R/G. Pulm: clear to ascultation bilaterally in the posterior lung alfred. Abd: BS +. No tenderness or pain on palpation. Ext: Minimal non-pitting edema above the ankles bilaterally. Pulses present. Neuro: alert and appropriate. Non-focal. Grossly intact. Psych: cooperative. Labs: Recent Labs 12/09/22 0030 12/08/22 1751 WBC 7.3 6.6 HGB 9.2* 9.4* HCT 29.3* 29.9* PLATELET 183 184 MCV 85.2 86.2 Recent Labs 12/09/22 0030 12/08/22 1751 NA 142 138 CL 109* 107 CO2 22 22 K 3.7 4.0 MAGNESIUM 0.80 -- PHOS 2.8 -- CALCIUM 8.5 8.7 BUN 14 16 CREATININE 0.88 0.87 LFTs Recent Labs 12/08/22 1751 PROT 6.1 ALBUMIN 3.8 AST 14 ALT 20 ALKPHOS 86 BILITOT 1.2 BILIDIR 0.2 Coags Recent Labs 12/08/22 1751 INR 1.1 PT 12.6* PTT 28 Cardiac Enzymes No results for input(s): CK, TROPONINT, PROBNP in the last 168 hours. Endocrine Recent Labs 05/31/22 1120 05/18/221999 TSH 1.67 2.27 No results for input(s): POCGLU in the last 168 hours. Heme No results for input(s): LDH, HAPTOGLOBIN, URICACID in the last 168 hours. ABG (Arterial Blood Gas) No results found for: PHART, PO2ART, [id number], [id number] Microbiology: Microbiology Results (Last 30 days) No results found for the last 720 hours. Imaging: No results found for this visit on 12/08/22. Medications Scheduled Meds: ??? rosuvastatin 40 mg Oral Daily ??? tamsulosin 0.4 mg Oral Daily ??? sodium chloride 0.9 % (flush) 5 mL Intravenous BID ??? pantoprazole 40 mg Intravenous BID ??? polyethylene glycol (GoLYTELY) with electrolytes BOWEL PREP powder for solution 2,000 mL Oral Once Continuous Infusions: PRN Meds:.carboxymethylcellulose, sodium chloride 0.9 % (flush), lidocaine Assessment and Plan Mr. Zamora is an 82 year old male with a PMH of duodenal & colonic angiectesias, CAD s/p AMPARO to OM1 on clopidogrel, PAD s/p multiple vascular interventions, Afib on rivaroxaban, and HFrEF (EF 30%) presenting with bright red blood per rectum. Given his presentation today mimics his presentation from 07/01, highest on the differential for lower GI bleeding source would be a colonic angiectasia vs AVM. Further, his use of anti-platelet &anticoagulation has led to multiple episodes of bleeding and therefore may be contributing to his propensity to develop recurrent GI bleeds. Will need further discussion on risks vs. Benefits of both his antiplatelet & anticoagulation prior to discharge. He is currently vitally stable without signs of hypovolemia and his repeat hemogram demonstrates stability since receiving 2 units of pRBCs at [facility]. Will continue IV PPI BID, keep him NPO, and hold anti-platelet & anticoagulation in thesetting of an acute lower GI bleed, with plans for colonoscopy by GI on 12/09. Plan to engage cardiol ogy regarding time for anticoagulation after colonoscopy. #Bright red blood per rectum #Lower GI bleed #Hx of Colonic & duodenal angiectasias - IV PPI 40 BID - Two large-bore IVs - Clear liquid diet; prep for colo tomorrow, NPO at midnight - Hold anticoagulation & anti-platelet agents in setting of recent BRBPR - Appreciate GI recommendations ?? #HFrEF (EF 28%) #CAD s/p AMPARO to OM1 #PAD s/p multiple vascular interventions #Atrial fibrillation - Holding anticoagulation (rivaroxaban) & antiplatelet (clopidogrel 75 qd) tonight - Hold metoprolol in setting of BRBPR to avoid masking of tachycardia, should patient become hypovolemic from blood loss - Consider cardiology consult after colo ?? #Other: Diet: NPO diet (Give Meds) DVT Ppx: SCDs GI Ppx: IV PPI Dispo: pending clinical course Code Status: Attempt Cardiopulmonary Resuscitation - Inpatient Remigio Morel MD 12/09/22 6:14 AM Internal Medicine, PGY-1 Pager: [phone] Associated attestation - Aristides Hinds MD - 12/11/2022 1:12 PM EST Attending Attestation and Certification Please see Remigio Morel MD's note for details of the patient history of presentation and data. I have discussed, reviewed and agree with the documented History, Physical findings, Assessment and Planof care. I have examined the patient myself and personally reviewed all studies. In addition, I certify thatI am a [facility] credentialed attending provider with admitting privileges and that the patient meets or has met medical necessity to require an inpatient IPI level of care meeting a minimum of two midnights or is on the [facility] inpatient only procedure list (status C) due to: #Lower GI bleed with underlying# Colonic & duodenal angiectasias. * Giana Deng RN - 12/08/2022 6:17 PM EST Pt arrived from OSH at ~1645. VSS, denies pain. Admitting team at bedside and orders placed. Labs sent. No BM thus far. Two large bore IVs in place and patent. NPO status maintained. documented in this encounter H&P Notes * Alan August MD - 12/09/2022 11:03 AM EST Gastroenterology and Hepatology Pre-Procedure History and Physical Exam Procedure: Colonoscopy: Indication: Hematochezia Patient Active Problem List Diagnosis Code ??? GIB (gastrointestinal bleeding) K92.2 ??? MVP (mitral valve prolapse) s/p repair I34.1 ??? Hypertriglyceridemia E78.1 ??? Adhesive capsulitis of L shoulder M75.00 ??? Alcohol use Z78.9 ??? Basal cell carcinoma C44.91 ??? Verruca vulgaris B07.9 ??? AK (actinic keratosis) L57.0 ??? History of basal cell carcinoma Z85.828 ??? Limb ischemia I99.8 ??? Coronary artery disease involving [place] coronary artery of [place] heart without angina pectoris I25.10 ??? HFrEF (heart failure with reduced ejection fraction) I50.20 ??? Permanent atrial fibrillation I48.21 ??? GI bleed K92.2 EXAM: HEENT: Airway examined, oropharynx clear Mallampati Score: II (soft palate, uvula, fauces visible) LUNGS: Clear to auscultation HEART: Regular rate and rhythm, normal S1, S2 ABDOMEN: Normal bowel sounds, soft, non tender, non distended A/P: Proceed with the planned endoscopic procedure. ASA 3 - Patient with moderate systemic disease with functional limitations Sedation Plan: anesthesia Risks and benefits of the procedure explained to the patient. Consent form signed and included in the patient's chart. Alan August MD PGY-5, Gastroenterology * Augustin Lou MD - 12/08/2022 5:42 PM EST Images from the original note were not included. Hospital Medicine History and Physical Patient info: Name: Koko Zamora : 1940 PCP: Bobby Das MD PCP phone number: [phone] Date of Admission: 12/08/2022 ( Hospital Day 0 days ) Responsible Attending:Stu Padilla MD Mr. Koko Zamora is an 82 year old male with a past medical history of CAD s/p AMPARO to ostial OM1, HFrEF (EF 30%), PAD c/b LLE ischemia s/p left common femoral transverse arteriotomy & primary repair, thromboembolectomy of SFA, profunda, and common femoral artery w/ 4 compartment fasciotomieson clopidogrel, mitral valve prolapse s/p repair (2000), Afib on rivaroxaban, upper GI bleed in 05/31 presenting in transfer from [facility] for hematochezia. Mr. Zamora first had an occult GI bleeding event in 05/31, at which time he demonstrated angioectesias in duodenum which were treated with APC. He represented in June with concerns of overt bleeding, for which he was re- scoped and found to have several angioectesia lesions which were treated with argon beam coagulation. He has had symptomatic anemia since and has required several transfusions.Mr. Zamora notes that he was recently started on ferrous sulfate 325 TID qd by his PCP, and continues to take rivaroxaban 20 & clopidogrel 75 qd. Patient notes that he was in his regular state of health, which involves being lightheaded upon standing and fatigue, until last night at 8 PM. He notes having urgency to defecate, which was followedby release of bright red blood per rectum. Following this event, he notes that he may have felt a slightly increased degree of lightheadedness. This morning at 8 AM, he had another episode of urgencyfollowed by bright red blood per rectum, at which point he presented to [facility] for further workup. Per report, patient demonstrated the following on initial workup: - Vitals: BP 103/80, HR 80, SpO2 100% - Labs: Notable for Hb 7.9 (9.3 on 11/08/22) +2u pRBCs On interview today, Mr. Zamora notes that he feels at his baseline (fatigued & lightheaded upon standing). He denies any abdominal pain/N/V/hematemesis. He has had one episode of urgency since the two above episodes described, which was associated with very minimal bright red blood as compared with other episodes. He denies use of tobacco or alcohol since May 2022, although does note priorto this time, he would drink up to 6 beers per day. No family history on file. Social History Socioeconomic History ??? Marital status: Spouse name: Not on file ??? Number of children: Not on file ??? Years of education: Not on file ??? Highest education level: Not on file Occupational History ??? Not on file Tobacco Use ??? Smoking status: Former Packs/day: 0.50 Years: 50.00 Pack years: 25.00 Types: Cigarettes Quit date: 05/15/2022 Years since quittin.5 ??? Smokeless tobacco: Never Vaping Use ??? Vaping Use: Never used [...] Medication Sig Dispense Refill Last Dose ??? rivaroxaban (Xarelto) 20 mg Tablet Take 1 tablet by mouth daily. 90 tablet 3 12/07/2022 ??? clopidogreL (Plavix) 75 mg Tablet Take 1 tablet by mouth daily. 90 tablet 3 12/07/2022 ??? metoprolol succinate XL (Toprol-XL) 50 mg Tablet Sustained Release 24 hr Take 1 tablet by mouthdaily. (Patient taking differently: Take 25 mg by mouth daily.) 30 tablet 12 12/07/2022 ??? tamsulosin (FLOMAX) 0.4 mg Capsule Take 0.4 mg by mouth daily. 12/07/2022 ??? CRESTOR 40 mg Tablet Take 40 mg by mouth daily. 12/07/2022 ??? MULTIVITAMIN (MULTIPLE VITAMIN ORAL) Take 1 tablet by mouth daily. 12/07/2022 ??? cephALEXin (KEFLEX) 500 mg Tablet One Tablet Twice Daily by mouth for five days 10 tablet 0 ??? acetaminophen (Tylenol) 325 mg Tablet Take 2 tablets by mouth every 6 hours as needed for Pain.(Patient not taking: Reported on 06/13/2022) 30 tablet 1 More than a month ??? fluticasone propionate (FLONASE) 50 mcg/actuation [place], Suspension 1 spray by Each Nare route [...] Tablet Take 1 tablet by mouth daily. Allergies Allergen Reactions ??? Aspirin Other (See Comments) GI bleed Objective: Vitals Last value Range last 24 hrs Temperature Temp: 37.3 ??C (99.1 ??F) Temp: [37.3 ??C (99.1 ??F)] Heart Rate Heart Rate: 84 Heart Rate: [79-84] Blood Pressure BP: 118/62 BP: (118-124)/(62-70) Art Line BP BP (Arterial Line): -- MAP (NBP): [80 mmHg-86 mmHg] Respiratory Rate Resp: 15 Resp: [15-19] SpO2 SpO2: 91 % SpO2: [91 %-95 %] Oxygen Delivery Oxygen Therapy O2 Device: None (Room air) No intake or output data in the 24 hours ending 12/08/221826 No data found. Admit wt: 78.7 kg Physical Exam: Gen: NAD. HEENT: Mucous membranes moist. NO CV: RRR. Normal S1 and S2. No M/R/G. Pulm: clear to ascultation bilaterally in the posterior lung alfred. Abd: BS +. No tenderness or pain on palpation. Ext: Minimal non-pitting edema above the ankles bilaterally. Pulses present. Neuro: alert and appropriate. Non-focal. Grossly intact. Psych: cooperative. Labs: CBC: Recent Labs 12/08/22 1751 WBC 6.6 HGB 9.4* HCT 29.9* PLATELET 184 NEUTROABS 4.12 Chemistry: Recent Labs 12/08/22 1751 06/02/22 0030 06/01/22 0100 NA 138 142 141 K 4.0 3.8 4.0 CL 107 108* 108* CO2 24 BUN 16 12 23* CREATININE 0.87 0.71* 0.78* GLUCOSE 201* 151 148 ANIONGAP 9 10 9 Recent Labs 12/08/22 1751 06/02/22 0030 06/01/22 0100 05/31/22 1050 05/17/22 0333 05/16/22 0301 CALCIUM 8.7 8.1* 8.6 9.1 < > 8.2* MAGNESIUM -- 0.83 0.93 0.93 < > 0.77 PHOS -- -- -- 3.2 -- 3.7 < > = values in this interval not displayed. LFT's: Recent Labs 12/08/22 1751 05/31/22 1050 BILITOT 1.2 <0.2* BILIDIR 0.2 0.1 ALBUMIN 3.8 4.1 ALKPHOS 86 63 ALT 20 44 AST 14 24 Coags: Recent Labs 12/08/22 1751 PT 12.6* INR 1.1 PTT 28 Cardiac enzymes: Recent Labs 05/31/22 1050 05/15/22 1200 TROPONINT <0.01 -- CK -- 87 PROBNP 1,077* -- Endocrine: Recent Labs 05/31/22 1120 05/18/22 2000 TSH 1.67 2.27 No results for input(s): HA1C in the last 7068 hours. Pertinent radiology/diagnostic studies: EGD (07/01): Impression: ?- Normal esophagus. ?- Normal stomach. ?- A single non-bleeding ?Angioectasia in the duodenum. ?Treated with argon beam coagulation. ?- Four non-bleeding angioectasias ?in the proximal jejunum. Treated ?with argon beam coagulation. ?- No specimens collected. Colonoscopy (07/01): Impression: ?- The examined portion of the ileum ?was normal. ?- Two small polyps in the sigmoid ?colon and in the transverse colon. ?Resection not attempted in the ?context of recent GI bleeding and ?antiplatelet use. 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 Treated with argon ?beam coagulation. Clip was placed. ?- No specimens collected. TTE (08/31): Interpretation Summary Technically limited imaging. Left ventricular [...] TTE performed 05/16/22, findings are overall similar. ?? ASSESSMENT/PLAN: Mr. Zamora is an 82 year old male with a PMH of duodenal & colonic angiectesias, CAD s/p AMPARO to OM1 on clopidogrel, PAD s/p multiple vascular interventions, Afib on rivaroxaban, and HFrEF (EF 30%) presenting with bright red blood per rectum. Given his presentation today mimics his presentation from 07/01, highest on the differential for lower GI bleeding source would be a colonic angiectasia vs AVM. Further, his use of anti-platelet &anticoagulation has led to multiple episodes of bleeding and therefore may be contributing to his propensity to develop recurrent GI bleeds. Will need further discussion on risks vs. Benefits of both his antiplatelet & anticoagulation prior to discharge. He is currently vitally stable without signs of hypovolemia and his repeat hemogram demonstrates stability since receiving 2 units of pRBCs at [facility]. Will plan on starting IV PPI BID, keep him NPO, and hold anti-platelet & anticoagulation in the setting of an acute lower GI bleed, with plans for colonoscopy by GI in the near future. #Bright red blood per rectum #Lower GI bleed #Hx of Colonic & duodenal angiectasias - IV PPI 40 BID - Two large-bore IVs - Clear liquid diet; prep for colo tomorrow, NPO at midnight - Hold anticoagulation & anti-platelet agents in setting of recent BRBPR - Appreciate GI recommendations #HFrEF (EF 28%) #CAD s/p AMPARO to OM1 #PAD s/p multiple vascular interventions #Atrial fibrillation - Holding anticoagulation (rivaroxaban) & antiplatelet (clopidogrel 75 qd) tonight - Hold metoprolol in setting of BRBPR to avoid masking of tachycardia, should patient become hypovolemic from blood loss #Routine PPX -DVT: SCDs - GI: IV PPI BID Diet: NPO CODE Status: Full Augustin Lou MD, PGY-2 12/08/2022 [facility] Medicine Blue Team #[id number] Associated attestation - Aristides Hinds MD - 12/09/2022 4:50 PM EST Attending Staff Admission Documentation I certify that the patient requires: [x] inpatient care status due to [Lower GI bleed ] I have examined the patient myself on 12/09/2022 and reviewed all labs and studies personally. Please see Dr. Augustin Lou's documentation for details of the patient history of presentation anddata. I have discussed, reviewed and agree with the documented history with ROS, physical findings, labs/studies, assessment and plan of care. documented in this encounter Miscellaneous Notes * Care Management Discharge - Do Cuadra RN - 12/12/2022 10:27 AM EST CARE MANAGEMENT FINAL DISCHARGE NOTE Chart reviewed, care reviewed with primary team and at interdisciplinary rounds. Patient is medically ready and anticipated to discharge home independently with 12/12/22 and no needs. Needs for Transition of Care: Plan for discharge is: Home w/o Services Outpatient Agency/Support Group Needs: None Agency Referrals & Follow-up Care: Transportation: family or friend will provide Wheelchair van/Ambulance? No Functional status prior to admission: Independent Home Environment: Others in the home: spouse. Current Living Arrangements: home/apartment/condo. Accessibility Concerns:Patient lives with his in a 2 story home. Patient's bedroom is on the 1st floor. Patient has 3 steps into his house. Current Functional Ability: Assistive Person DME used at home: none DME Needed at Discharge: Patient is insured through: Primary Insurance: MEDICARE Payor: MEDICARE / Plan: MEDICARE PART A & B / Product Type: *No Product type* / Secondary Insurance: [facility] Prescription Coverage: Yes This plan was formulated with input from patient, Koko and team. All are in agreement with plan. Referral made to [facility] Do Cuadra RN [phone] Pager [phone] * Plan of Care - Luann Barrientos RN - 12/12/2022 4:02 AM EST OUTCOME EVALUATION NOTE: OUTCOME SUMMARY: Pt A&O x4; able to follow command. Pt denies pain. Pt remains in AFib, rate controlled. Pt on 2L NC. Pt voiding adequate amount clear, yellow urine per urinal. Pt tolerating PO intake; no N/V. Ptable to sleep in between care. PLAN MOVING FORWARD: Monitor labs Covid test Wean from [place] INDIVIDUALIZED FALL PREVENTION INTERVENTIONS: Patient-specific fall risk factors per assessment: [current deficits]: ongoing Assistance [level of assistance required for transfers and ambulation]: ongoing Supervision [direct monitoring required during toileting and ADLs]: see assessment Surveillance [continuous indirect monitoring]: see assessment Patient-specific fall prevention interventions for sensory deficits provided, if applicable: bed inlowest position, frequent rounds, room near nurses station, call light within reach CPG GOAL OUTCOME EVALUATION: * Plan of Care - Rubia Horne RN - 12/11/2022 6:14 PM EST OUTCOME EVALUATION NOTE: OUTCOME SUMMARY: Pt alert and oriented x4, VSS on 2L NC. Heparin drip d/c'd this morning per orders, Eliquis started. Voiding adequately in urinal. No complaints of pain, resting comfortably between care. PLAN MOVING FORWARD: Vitals q4 I&O q8 Anticoagulant therapy INDIVIDUALIZED FALL PREVENTION INTERVENTIONS: Patient-specific fall risk factors per assessment: [current deficits]: Ivs, lines Assistance [level of assistance required for transfers and ambulation]: SBA Supervision [direct monitoring required during toileting and ADLs]: SBA Surveillance [continuous indirect monitoring]: Carlos monitor, purposeful rounding, call boo within reach Patient-specific fall prevention interventions for sensory deficits provided, if applicable: [X] N/A CPG GOAL OUTCOME EVALUATION: * Plan of Care - Rubia Horne RN - 12/10/2022 6:37 PM EST OUTCOME EVALUATION NOTE: OUTCOME SUMMARY: Pt alert and oriented x4, VSS on RA. Bps started dropping to mid-to-low 90s, team paged and provider came to bedside. CBC collected this AM. Heparin started at 1200 units/hr, first UFH collected and in therapeutic range. Adequate output, voiding in mack. Pt reports no pain and is resting comfortably between care. PLAN MOVING FORWARD: Vitals q4 I&O q8 INDIVIDUALIZED FALL PREVENTION INTERVENTIONS: Patient-specific fall risk factors per assessment: [current deficits]: Ivs, lines Assistance [level of assistance required for transfers and ambulation]: SBA Supervision [direct monitoring required during toileting and ADLs]: SBA Surveillance [continuous indirect monitoring]: Carlos monitor, purposeful rounding, call boo within reach Patient-specific fall prevention interventions for sensory deficits provided, if applicable: [X] N/A CPG GOAL OUTCOME EVALUATION: * Initial Assessments - Tiffanie Patton RN - 12/10/2022 8:37 AM EST Office of Care Management Initial Assessment Tiffanie Patton RN reviewed record and discussed patient with Care Team. Source of Information: Team, bedside nurse, medical record, and Patient Introduced self/reviewed role; services accepted. Reason for Hospitalization: blood in stool Covid Vaccination Status: 1st, 2nd & booster (Moderna) Last COVID test: Past medical History: No past medical history on file. Hospitalizations Within the Past 30 Days: no previous admission in last 30 days Current Decision-Making Capacity: Self If AD's have not been completed the following surrogate would be surrogate decision maker [place]. (Only good for 180 days) Spouse Ursula Any patient receiving care in [place] must abide by [place] law. The hierarchy for surrogate decision making [...] No, need to discuss Current Coping/Education/Information Needs: Edcuacted the patient on the role of the CM and the DC planning process Current Functional Ability: Independent Functional Status Prior to Admission: Independent Prior ADLs & IADLs: Independent with all ADLs & IADLs Home Environment: Others in the home: spouse. Current Living Arrangements: home/apartment/condo. Accessibility Concerns:Patient lives with his in a 2 story home. Patient's bedroom is on the 1st floor. Patient has 3 steps into his house. Resource / Environmental Concerns: Resource/Environmental Concerns: none Current DME: none Home Address confirmed as: [address] [place] [id number] Social & Family Supports: All names listed below confirmed with patient as current and correct Extended Emergency Contact Information Primary Emergency Contact: Ursula Zamora [address]: [address] [place] [phone] [facility] Relation: Spouse Current Care Provided by: self Provides Primary Care For: no one Caregiver if needed: spouse Quality of Family relationships: helpful, involved, supportive Community Resources being provided currently: none Behavioral Health History: Denied Substance Use/Abuse confirmed: Social History Tobacco Use Smoking Status Former ??? Packs/day: 0.50 ??? Years: 50.00 ??? Pack years: 25.00 ??? Types: Cigarettes ??? Quit date: 05/15/2022 ??? Years since quittin.5 Smokeless Tobacco Never 0 No problems reported 1-2 Low level 3-5 Moderate level 6-8 Substantial level 9- 10 Severe level 0 to 7 points: Low risk 8 to 15 points: Medium risk 16 to 19 points: High risk 20 to 40 points: Addiction likely Other Pertinent/Service Specific Information: NA Health/Prescription Coverage: Primary Insurance: MEDICARE Payor: MEDICARE / Plan: MEDICARE PART A & B / Product Type: *No Product type* / Secondary Insurance: [facility] ONLY if patient has Medicare A&B - Does this patient have secondary insurance?: Yes ; Prescription Coverage: Yes Preferred Pharmacy: [facility] [place], [place] - [address] [place] [address] [place] [id number] Status: Patient is a : No Primary Care Provider confirmed: Bobby Das MD [phone] Patient/Caregiver Goals of Treatment: Return home Potential Needs for Transition of Care: none Agency Referrals: Not Applicable Transportation: no concerns Transportation Anticipated: family or friend will provide Concerns to be Addressed: no discharge needs identified Assessment: Patient is admitted to [facility] service for GIB Plan: The patient alert and oriented and able to participate in discussion regarding DC plan. Patient with no apparent RNCM/SW needs at this time. No housing, transportation, insurance, resources concerns identified at this time. Supports in place to achieve a safe post-hospital transition. No identifiedbarriers to accessing necessary care and/or follow-up after discharge. ??? Monitor pt progress ??? Review recommendations from other providers ??? Make referrals as needed A member of the Care Management team will continue to monitor progress, follow for continuity of care and assist with transition of care planning. Tiffanie Patton [facility] [phone] * Plan of Care - Matt Raya RN - 12/10/2022 4:43 AM EST OUTCOME EVALUATION NOTE: OUTCOME SUMMARY: Assumed care of Pt at 1900. Pt alert and oriented X4, denies pain. VSS overnight. Pt independent toBR, voiding appropriately in the urinal. Pt asleep in between care, no signs of distress. PLAN MOVING FORWARD: DC home today INDIVIDUALIZED FALL PREVENTION INTERVENTIONS: Patient-specific fall risk factors per assessment: [current deficits]: Cords/lines Assistance [level of assistance required for transfers and ambulation]: independent Supervision [direct monitoring required during toileting and ADLs]: stand by Surveillance [continuous indirect monitoring]: Purposeful rounding, ICU monitoring , call boo in reach Patient-specific fall prevention interventions for sensory deficits provided, if applicable: [X] N/A CPG GOAL OUTCOME EVALUATION: * Consult Note - Matt Box MD - 12/09/2022 5:35 PM EST [facility] Department of Cardiology Initial Consult Note Patient: Koko Zamora Primary Care: Bobby Das MD : 1940 Referring Provider: Giulia Xavier Date of service: 12/09/2022 Reason for consult: anticoagulation management in setting of GIB HISTORY OF PRESENT ILLNESS Koko Zamora is a 82 y.o. male with history of pre-diabetes, hyperlipidemia, mitral valve prolapse s/p MV repair in [place] in 2000, alcohol use disorder, duodenal & colonic angiectesias, CAD s/p AMPARO to OM1 on clopidogrel (ASA caused GIB), PAD s/p multiple vascular interventions, Afib on rivaroxaban, and HFrEF (EF 30%) presenting with hematochezia requiring several transfusions. He underwent colonoscopy with GI which did not reveal a clear source with active bleeding, but small polyps and internal hemorrhoids were seen and thought to perhaps be the source. Cardiology has now been consulted for anticoagulation management. The patient reports feeling reasonably well with no active bleeding today. He feels improved overall. No chest pain, SOB, LE edema, orthopnea, palpitations. MEDICAL AND SURGICAL HISTORY No past medical history on file. Past [...] [facility] INTERVENTION[facility] RAD ??? PRO COLONOSCOPY, FLEX, W/CONTROL, BLEEDING N/A 06/25/2022 COLONOSCOPY; W CONTROL OF BLEEDING, ANY METHOD performed by Giovani Ponce MD at [facility] ENDOSCOPY ??? PRO EMBLC/THRMBC FEMORAL POPLITEAL AORTO-ILIAC ARTERY Left 05/15/2022 EMBOLECTOMY OR THROMBECTOMY, FEMOROPOPLITEAL, AORTOILIAC ARTERY BY LEG INCISION (WRVU 19.48) performed by Fito Summers MD at [facility] MAIN OR ??? PRO SMALL BOWEL ENDOSCOPY, PAST 2ND DUOD N/A 06/25/2022 SMALL BOWEL ENTEROSCOPY performed by Giovani Ponce MD at [facility] ENDOSCOPY ??? PRO UPPER GI ENDOSCOPY, CTRL BLEED 05/31/2022 EGD, W CONTROL OF BLEEDING, ANY METHOD performed by Giovani Ponce MD at [facility] ENDOSCOPY ??? PRO UPPER GI ENDOSCOPY, DIAGNOSTIC N/A 05/31/2022 EGD, UPPER GI ENDOSCOPY performed by Giovani Ponce MD at [facility] ENDOSCOPY ??? PRO UPPER GI ENDOSCOPY, DIAGNOSTIC N/A 06/25/2022 EGD, UPPER GI ENDOSCOPY performed by Giovani Ponce MD at [facility] ENDOSCOPY MEDICATIONS AND ALLERGIES Outpatient Medications Marked as Taking for the 12/08/22 encounter (Hospital Encounter) Medication Sig Dispense Refill ??? rivaroxaban (Xarelto) 20 mg Tablet Take 1 tablet by mouth daily. 90 tablet 3 ??? clopidogreL (Plavix) 75 mg Tablet Take [...] ??? Aspirin Other (See Comments) GI bleed SOCIAL HISTORY Social History Socioeconomic History ??? Marital status: Spouse name: Not on file ??? Number of children: Not on file ??? Years of education: Not on file ??? Highest education level: Not on file Occupational History ??? Not on file Tobacco Use ??? Smoking status: Former Packs/day: 0.50 Years: 50.00 Pack years: 25.00 Types: Cigarettes Quit date: 05/15/2022 Years since quittin.5 ??? Smokeless tobacco: Never Vaping Use ??? Vaping Use: Never used [...] file Housing Stability: Not on file FAMILY HISTORY No family history on file. REVIEW OF SYSTEMS Negative except as noted above. EXAM/ DATA Last value Range last 24 hrs Temperature Temp: 36.7 ??C (98.1 ??F) Temp: [36.4 ??C (97.5 ??F)-37.6 ??C (99.7 ??F)] Heart Rate Heart Rate: 84 Heart Rate: [67-107] Blood Pressure BP: 107/50 BP: (85-158)/(42-76) Respiratory Rate Resp: 15 Resp: [10-27] SpO2 SpO2: 92 % SpO2: [89 %-100 %] I's and O's: Intake/Output Summary (Last 24 hours) at 12/09/2022 1735 Last data filed at 12/09/2022 1500 Gross per 24 hour Intake 2670 ml Output 495 ml Net 2175 ml Weights: Patient Vitals for the past 168 hrs: Weight 12/09/22 1019 78.5 kg (173 lb) Examination: General: Pleasant, alert, appropriate in NAD. Appears stated age with significant rhinophyma . Neck: Supple with normal ROM. JVD ~ flat Cardiac: Normal S1 and S2, RRR; No murmurs/gallops/rubs. Respiratory: Nonlabored. CTAB no wrr Abd: soft, non-tender, non-distended, no obvious masses Ext: WWP without LE edema Labs: Recent Labs 12/09/22 0030 12/08/22 1751 WBC 7.3 6.6 HGB 9.2* 9.4* HCT 29.3* 29.9* PLATELET 183 184 NEUTROABS 4.49 4.12 Recent Labs 12/09/22 0030 12/08/22 1751 NA 142 138 K 3.7 4.0 CL 109* 107 CO2 22 22 BUN 14 16 CREATININE 0.88 0.87 Recent Labs 12/09/22 0030 12/08/22 1751 CALCIUM 8.5 8.7 MAGNESIUM 0.80 -- PHOS 2.8 -- Recent Labs 12/08/22 1751 AST 14 ALT 20 ALKPHOS 86 BILITOT 1.2 BILIDIR 0.2 Recent Labs 12/08/22 1751 INR 1.1 PT 12.6* PTT 28 Echocardiogram 09/05/2022: Left ventricular ejection fraction is estimated visually [...] TTE performed 05/16/22, findings are overall similar. ASSESSMENT AND PLAN Koko Zamora is a 82 y.o. male with history of pre-diabetes, hyperlipidemia, mitral valve prolapse s/p MV repair in [place] in 2000, alcohol use disorder, duodenal & colonic angiectesias, CAD s/p AMPARO to OM1 on clopidogrel (ASA caused GIB), PAD s/p multiple vascular interventions, Afib on rivaroxaban, and HFrEF (EF 30%) presenting with hematochezia requiring several transfusions. He underwent colonoscopy with GI which did not reveal a clear source with active bleeding, but small polyps and internal hemorrhoids were seen and thought to perhaps be the source. Cardiology has now been consulted for anticoagulation management. Given the resolution of bleeding and fact that he is maintained on IV PPI, it seems reasonable to begin reintroducing anticoagulation and antiplatelet therapy. At this point, we would recommend restarting Plavix 75mg this evening and assessing overnight. In the morning, barring additional bleeding,we would suggest adding heparin gtt (no bolus) to achieve therapeutic anticoagulation. If he is stable for ~48hrs on this regimen, it would be reasonable to restart oral therapy with either Xarelto or Eliquis. Recommendations: - Continue Plavix 75mg daily - Hold Xarelto for now, would restart full dose anticoagulation when able given CHADSVASC 4, start with heparin gtt to assess tolerance - May be reasonable to start Eliquis instead of Xarelto so long as he is able to afford Eliquis anddoesn't mind the BID dosing Case was discussed with Dr. Box who agrees with recommendations as documented above. Recommendations are above, please page if further consultation required. Chino Mckeon Remote Sensing Surveyor, PGY4 [id number] STAFF ADDENDUM Patient interviewed and examined. Medical record reviewed. I agree with the History of Present Illness Past Medical History Family History, Social History Review of Systems Physical Exam Objective Data Assessment and Plan as detailed by Dr. Mckeon, with whom the patient was interviewed, examined, and discussed, with the following additions and/or exceptions. My current understanding is that the patient has been on clopidogrel and a DOAC following a) peripheral emboli thought secondary to AF; b) a POBA of the CX with AMPARO of an OM. 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 Since then he has needed recurrent transfusions and is now admitted for BRBPR with his colonoscopy showing polyps and internal hemorrhoids but no identified source of bleeding. Despite the BRBPR his Hgb has remained relatively stable at 9-9.4. His clopidogrel and DOAC have beenheld since admission. He does need an antiplatelet agent given his CAD and stenting, the latter just 6 months ago. He also needs systemic anticoagulation given his history of peripheral embolization, presumably from his AF. There is no good alternative to the clopidogrel. However, an alternative to systemic anticoagulation would be placemen of a Watchman Device which would seem worth considering given his need for recurrent transfusions over the last 6 months. The timing of when to restart the clopidogrel is not certain. If you have ruled out active bleeding then it would be reasonable to restart the clopidogrel. If there is no additional bleeding you can then start systemic anticoagulation. We will reviewed with [facility] the idea of placing a Watchman IF the patient agrees to this approach. * Care Management - Do Cuadra RN - 12/09/2022 4:31 PM EST Attempt to contact patient to complete I/A. Per staff radiographer, patient is asleep. Do Cuadra RN CM [phone] Pager [phone] * Op Note - Giovani Ponce MD - 12/09/2022 11:26 AM EST DH Operative Note Patient Name: Koko Zmaora : [id number] MR#: [id number] Case Date: 12/09/2022 Surgeon: Surgeon(s) and Role: * Giovani Ponce MD - Primary * Alan August MD - Fellow Procedure(s): COLONOSCOPY, DIAGNOSTIC Please see Provation report for details. * Plan of Care - Luann Barrientos RN - 12/09/2022 3:51 AM EST OUTCOME EVALUATION NOTE: OUTCOME SUMMARY: Pt A&O x4; able to follow commands. Pt denies pain. Pt remains in AF. Pt on RA; denies any SOB or difficulty breathing. Pt NPO at midnight. Pt almost finished one bottle of GoLytely; pt toleratedwell. MD Flores notified that patient only needed one bottle of GoLytely. Pt having clear, yellowBMs. Pt voiding per toilet/urinal. Pt ambulates to bathroom, SBA. Pt denies any lightheadedness or d izziness. Pt slept very little overnight. PLAN MOVING FORWARD: CBC BID Colonoscopy INDIVIDUALIZED FALL PREVENTION INTERVENTIONS: Patient-specific fall risk factors per assessment: [current deficits]: ongoing Assistance [level of assistance required for transfers and ambulation]: ongoing Supervision [direct monitoring required during toileting and ADLs]: see assessment Surveillance [continuous indirect monitoring]: see assessment Patient-specific fall prevention interventions for sensory deficits provided, if applicable: bed inlowest position, frequent rounds, room near nurses station, call light within reach CPG GOAL OUTCOME EVALUATION: * Consult Note - Isi Celaya MD - 12/08/2022 6:33 PM EST Images from the original note were not included. DIVISION OF GASTROENTEROLOGY & HEPATOLOGY INITIAL CONSULT REQUESTING PROVIDER: Stu Padilla MD NAME: Koko Zamora : 1940 HPI: 82yo M w/PMH of remote mitral valve repair (2000), prediabetes, hyperlipidemia, significant alcoholuse, and tobacco use, admitted in summer 2021 to??Vascular Surgery w/acute LLE limb ischemia for which he underwent left femoral cutdown with thromboembolectomy,?? and HFrEF, currently on plavix (necessary iso AMPARO) and rivaroxaban (Afib, leg thrombosis), who presented to OSH w/recurrent symptomatic anemia now transferred to [facility] for further care. At [facility], he noted he was passing bright red blood and strings of clots. Given this, paired with him feeling light-headed, [facility] felt he needed to be in tertiary center, as his comorbidities were concerning for proceeding with endoscopy there. On meeting Mr. Zamora, he appears well, is mentating and currently feeling well. Notes that last night he started to pass clots, somewhere from 15-20 episodes. Was slightly light-headed but no SOB,CP, no nausea, vomiting, abd pain. No diarrhea associated with it. Did not feel sick recently, no sick contacts or changes in medications. Did not feel dehydrated. Has never had anything like this before; earlier this summer when we met him, he was passing darker stools and blood was not bright red. Describes wiping and seeing fire truck red. Remains on plavix and AC as above. No other changes in medications. ROS: 10-system ROS negative other than that noted above PAST MEDICAL & SURGICAL HX: No past medical history on file. Past Surgical History: Procedure Laterality Date ??? IR BIOPSY SPINE 07/20/2019 IR Biopsy Spine 07/20/2019 Bobby Marshall MD [facility] INTERVENTIONL RAD ??? IR VERTEBROPLASTY LUMBAR MULTIPLE LEVELS 07/20/2019 IR Vertebroplasty Lumbar Multiple Levels 07/20/2019 Bobby Mrashall MD [facility] INTERVENTIONL RAD ??? IR VERTEBROPLASTY THORACIC SINGLE LEVEL 10/25/2020 IR Vertebroplasty Thoracic Single Level 10/25/2020 Matt Chisholm MD [facility] INTERVENTIONL RAD ??? PRO COLONOSCOPY, FLEX, W/CONTROL, BLEEDING N/A 06/25/2022 COLONOSCOPY; W CONTROL OF BLEEDING, ANY METHOD performed by Giovani Ponce MD at [facility] ENDOSCOPY ??? PRO EMBLC/THRMBC FEMORAL POPLITEAL AORTO-ILIAC ARTERY Left 05/15/2022 EMBOLECTOMY OR THROMBECTOMY, FEMOROPOPLITEAL, AORTOILIAC ARTERY BY LEG INCISION (WRVU 19.48) performed by Fito Summers MD at [facility] MAIN OR ??? PRO SMALL BOWEL ENDOSCOPY, PAST 2ND DUOD N/A 06/25/2022 SMALL BOWEL ENTEROSCOPY performed by Giovani Ponce MD at [facility] ENDOSCOPY ??? PRO UPPER GI ENDOSCOPY, CTRL BLEED 05/31/2022 EGD, W CONTROL OF BLEEDING, ANY METHOD performed by Giovani Ponce MD at [facility] ENDOSCOPY ??? PRO UPPER GI ENDOSCOPY, DIAGNOSTIC N/A 05/31/2022 EGD, UPPER GI ENDOSCOPY performed by Giovani Ponce MD at [facility] ENDOSCOPY ??? PRO UPPER GI ENDOSCOPY, DIAGNOSTIC N/A 06/25/2022 EGD, UPPER GI ENDOSCOPY performed by Giovani Ponce MD at [facility] ENDOSCOPY SOCIAL HX: Social History Socioeconomic History ??? Marital status: Spouse name: Not on file ??? Number of children: Not on file ??? Years of education: Not on file ??? Highest education level: Not on file Occupational History ??? Not on file Tobacco Use ??? Smoking status: Former Packs/day: 0.50 Years: 50.00 Pack years: 25.00 Types: Cigarettes Quit date: 05/15/2022 Years since quittin.5 ??? Smokeless tobacco: Never Vaping Use ??? Vaping Use: Never used [...] Medication Sig Dispense Refill Last Dose ??? rivaroxaban (Xarelto) 20 mg Tablet Take 1 tablet by mouth daily. 90 tablet 3 12/07/2022 ??? clopidogreL (Plavix) 75 mg Tablet Take 1 tablet by mouth daily. 90 tablet 3 12/07/2022 ??? metoprolol succinate XL (Toprol-XL) 50 mg Tablet Sustained Release 24 hr Take 1 tablet by mouthdaily. (Patient taking differently: Take 25 mg by mouth daily.) 30 tablet 12 12/07/2022 ??? tamsulosin (FLOMAX) 0.4 mg Capsule Take 0.4 mg by mouth daily. 12/07/2022 ??? CRESTOR 40 mg Tablet Take 40 mg by mouth daily. 12/07/2022 ??? MULTIVITAMIN (MULTIPLE VITAMIN ORAL) Take 1 tablet by mouth daily. 12/07/2022 ??? cephALEXin (KEFLEX) 500 mg Tablet One Tablet Twice Daily by mouth for five days 10 tablet 0 ??? acetaminophen (Tylenol) 325 mg Tablet Take 2 tablets by mouth every 6 hours as needed for Pain.(Patient not taking: Reported on 06/13/2022) 30 tablet 1 More than a month ??? fluticasone propionate (FLONASE) 50 mcg/actuation [place], Suspension 1 spray by Each Nare route [...] Tablet Take 1 tablet by mouth daily. Current Meds: Scheduled: ??? rosuvastatin 40 mg Oral Daily ??? tamsulosin 0.4 mg Oral Daily ??? sodium chloride 0.9 % (flush) 5 mL Intravenous BID ??? pantoprazole 40 mg Intravenous BID Drips: PRN: carboxymethylcellulose, sodium chloride 0.9 % (flush), lidocaine Allergies: Allergies Allergen Reactions ??? Aspirin Other (See Comments) GI bleed OBJECTIVE Vitals: T Temp: [37.3 ??C (99.1 ??F)] HR Heart Rate: [79-84] BP BP: (118-124)/(62-70) RR Resp: [15-19] SpO2 SpO2: [91 %-95 %] IO No intake/output data recorded. Wt Last Admit Physical Exam: CONST: Awake, alert, no acute distress HEENT: sclerae anicteric, moist mucous membranes, no oral thrush GI: abdomen soft, non-tender, non-distended, normoactive bowel sounds, tympanic to percussion MSK: legs warm, palpable pulses b/l, no significant edema SKIN: No jaundice, rash, or bruising NEURO: Grossly intact, moves all extremities PSYCH: Pleasant, appropriate affect Labs: Labs personally reviewed in eD CBC: Recent Labs 12/08/22 1751 WBC 6.6 HGB 9.4* PLATELET 184 MCV 86.2 RDWCV 20.1* COAG: Recent Labs 12/08/22 1751 PTT 28 INR 1.1 PT 12.6* CHEM: No results for input(s): CREATININE, BUN, NA, K, CL, CO2, MAGNESIUM, CALCIUM in the last 168 hours. Invalid input(s): ANION, PHOSPHOR HEPATIC: No results for input(s): BILITOT, BILIDIR, ALKPHOS, AST, ALT, ALBUMIN, LIPASE in the last 168 hours. Invalid input(s): TPROT INFLAMM: No results for input(s): CRP in the last 168 hours. IMAGING: Reports and images personally reviewed in [facility]. Images independently interpreted. No orders to display ENDOSCOPY: Reports and images personally reviewed in eD Colonoscopy 06/2022: Impression: ?- The examined portion of the ileum ?was normal. ?- Two small polyps in the sigmoid ?colon and in the transverse colon. ?Resection not attempted in the ?context of recent GI bleeding and ?antiplatelet use. 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 Treated with argon ?beam coagulation. Clip was placed. ?- No specimens collected EGD 06/2022: Impression: ?- Normal esophagus. ?- Normal stomach. ?- A single non-bleeding ?Angioectasia in the duodenum. ?Treated with argon beam coagulation. ?- Four non-bleeding angioectasias ?in the proximal jejunum. Treated ?with argon beam coagulation. ?- No specimens collected. ASSESSMENT & PLAN: 82yo M w/PMH of remote mitral valve repair (2000), prediabetes, hyperlipidemia, significant alcoholuse, and tobacco use, admitted in summer 2021 to??Vascular Surgery w/acute LLE limb ischemia for which he underwent left femoral cutdown with thromboembolectomy,?? and HFrEF, currently on plavix (necessary iso AMPARO) and rivaroxaban (Afib, leg thrombosis), who presented to OSH w/recurrent symptomatic anemia now transferred to [facility] for further care. On meeting pt and discussing further, sounds as if he is having significant painless hematochezia w/urgency and frequency ultimately c/f LGIB, specifically prior AVM seen in rectum vs diverticular bleed in colon (though previously did not appreciate diverticulae). Story not c/w ischemic process butcannot rule out. Will plan to prep him for colonoscopy tomorrow (see below). Would ensure sufficient access, trend H/h and transfuse as needed. As for his plavix and rivaroxaban, would be prudent andhelpful to understand how long he needs to be on these agents, as suspect he will continue to have issues with bleeding while on these. Pt amenable to this plan. Recommendations: - 2 large bore IVs - Active T&S - Transfuse for Hgb > 7 - Prep for colonoscopy 12/09 (see below) - Would be helpful to determine how long needs to be on plavix, rivaroxaban COLONOSCOPY PREP - Clear liquid diet (no red-colored products) now - 2L golytely to start at 6pm and finish by 8pm, then 2L more golytely at 11pm to finish by 1am. Ptto drink 12oz every 10-15 minutes until the intended volume is completed. If patient is nauseous, treat with zofran and put prep on ice to be sipped through straw. - After prep begins, diet should be NPO other than prep/meds with sips. At MD, patient should be strict NPO. - Night float to please check on prep at 1am and continue prep until clear Patient to be staffed with Dr. Kris Celaya MD PGY-4, Gastroenterology documented in this encounter Plan of Treatment Not on file documented as of this encounter Procedures Procedure Name Priority Date/Time Associated Diagnosis Comments HC VENIPUNCTURE Routine 12/12/2022 8:19 AM EST RAPID COVID-19 PCR ([facility]) Routine 12/12/2022 6:12 AM EST BASIC METABOLIC PANEL Routine 12/12/2022 12:30 AM EST HC UNFRACTIONATED HEPARIN (HEP UFH) Routine 12/11/2022 4:45 AM EST HEMOGRAM Routine 12/11/2022 4:45 AM EST DIFFERENTIAL, AUTOMATED Routine 12/11/19 4:45 AM EST HC CBC,PLT & AUTO DIFF Routine 3 4:45 AM EST BASIC METABOLIC PANEL Routine 12/11/2022 4:45 AM EST HC UNFRACTIONATED HEPARIN (HEP UFH) Routine 12/10/2022 10:35 PM EST HC HEMOGRAM Routine 12/10/2022 10:35 PM EST HC VENIPUNCTURE Routine 12/10/2022 4:40 PM EST BASIC METABOLIC PANEL Routine 12/10/2022 10:08 AM EST HEMOGRAM Routine 12/10/2022 9:20 AM EST DIFFERENTIAL, AUTOMATED Routine 12/10/19 9:20 AM EST HC CBC,PLT & AUTO DIFF Routine 9:20 AM EST HEMOGRAM Routine 12/09/2022 5:42 PM EST DIFFERENTIAL, AUTOMATED Routine 12/09/19 5:42 PM EST HC CBC,PLT & AUTO DIFF Routine 5:42 PM EST COLONOSCOPY Routine 12/09/2022 11:22 AM EST Colonoscopy, Diagnostic ([id number]) 12/09/2022 11:18 AM EST hematochezia HEMOGRAM Routine 12/09/2022 12:30 AM EST DIFFERENTIAL, AUTOMATED Routine 12/09/19 12:30 AM EST HC CBC,PLT & AUTO DIFF Routine 12:30 AM EST HC PHOSPHORUS, SERUM Routine 12/09/2022 12:30 AM EST HC MAGNESIUM, SERUM Routine 12/09/2022 1 2:30 AM EST BASIC METABOLIC PANEL Routine 12/09/2022 12:30 AM EST TYPE AND SCREEN VALIDITY Routine 12/08/2022 5:51 PM EST ABORH RECHECK STATUS Routine 12/08/2022 5:51 PM EST HEMOGRAM Routine 12/08/2022 5:51 PM EST DIFFERENTIAL, AUTOMATED Routine 12/08/19 5:51 PM EST ABO/RH TYPING Routine 12/08/2022 5:51 PM EST HC PARTIAL THROMBOPLASTIN TIME Routine 12/08/2022 5:51 PM EST HC PROTHROMBIN TIME Routine 12/08/2022 5 :51 PM EST HC CBC,PLT & AUTO DIFF Routine 5:51 PM EST ANTIBODY SCREEN Routine 12/08/2022 5:51 PM EST HC VENIPUNCTURE Routine 12/08/2022 5:51 PM EST HEPATIC FUNCTION PANEL Routine 5:51 PM EST BASIC METABOLIC PANEL Routine 12/08/2022 5:51 PM EST documented in this encounter Results * (ABNORMAL) Hemogram (12/12/2022 8:19 AM EST) White Blood Cell 5.6 4.0 - 9.5 x10(3)/mc L [facility] Red Blood Cell 3.62(L) 4.58 - 5.54 x10(6)/mc L [facility] Hemoglobin 9.7(L) 13.7 - 16.5 g/dL [facility] Hematocrit 31.0(L) 40.5 - 48.5 % [facility] Mean Cell Volume 85.6 82.9 - 93.1 fL [facility] Mean Cell Hemoglobin 26.8(L) 27.5 - 32.1 pg [facility] Mean Cell Hemoglobin Concentration 31.3(L) 32.0 - 35.7 g/dL [facility] Platelet 180 145 - 357 x10(3)/mc L [facility] RDW Standard Deviation 59.0(H) 36.0 - 45.0 fL [facility] RDW coefficient of variation 18.6(H) 11.4 - 13.8 % [facility] Mean Platelet Volume 10.7 7.6 - 12.9 fL [facility] NRBC% auto 0.0 % [facility] NRBC Absolute 0.000 0.000 - 0.000 x10(3)/mc L [facility] Blood 12/12/2022 8:19 AM EST 12/12/2022 8:58 AM EST Narrative Resulting Agency Comment Spec In Lab Aristides Hinds MD HEMATOLOGY ORDERAB LES [facility] One [facility] [place] [address] * COVID-19 PCR (12/12/2022 6:12 AM EST) SARS-CoV-2 RNA (Rapid) Not Detected Not Detected [facility] Comment: This result should be interpreted in combination with the clinical observations, patient history and epidemiological information. For testing of asymptomatic individuals, assay performance characteristics and clinical utility have not been evaluated. Testing for SARS-CoV-2 (Severe acute respiratory syndrome coronavirus 2, formerly known as 2019 novel coronavirus or 2019-nCoV) to aid in the diagnosis of COVID-19 is performed using the Simplexa COVID-19 Direct Assay by [employer] as authorized by the FDA issued Emergency Use Authorization (EUA). This assay is intended for In-vitro Diagnostic (IVD) use with nasopharyngeal swabs collected from individuals meeting the CDC criteria for testing. The assay is performed based on the instructions for use and additional guidance provided by the FDA. Testing is performed in the Microbiology Laboratory within the Department of Pathology and Laboratory Medicine at [facility], certified under the Clinical Laboratory Improvement Amendments of 1988 (CLIA), 42 U.S.C. section 263a, to perform high complexity tests. Assay performance has been verified according to clinical laboratory regulatory requirements. Test results are provided above. A result of Not Detected indicates that the viral RNA target is not present but does not preclude SARS-CoV-2 infection. False negative results may occur if a specimen is improperly collected, transported or handled; if amplification inhibitors are present; or if inadequate numbers of viral particles are present in the specimen. A result of Detected suggests a current or recent infection and the patient is presumed to be infected. Positive and negative predictive values for this test are highly dependent on disease prevalence. A result of Invalid indicates the inability to conclusively determine the presence or absence of SARS-CoV-2 RNA in the sample which can be due to a variety of factors. Recollection is recommended in the case of an invalid result. CDC COVID-19 criteria for testing on human specimens and clinical management guidance information are available at the CDC Coronavirus Disease 2019 (COVID-19) webpage under Information for Healthcare Professionals (https://www.cdc.gov/coronavirus/2019-ncov/hcp/index.html). Additional information about this and other EUA tests can be found in provider and patient fact sheets at the following FDA website: https://www.fda.gov/medical-devices/qgryfouirhf-srlkzhb-5116-bpjmf-52-tafvdxjfa- use-a ccqulgdthvytq-dssymkb-tfkctud/pnntm-zkdtxwxgvcz-sbpy SARS-CoV-2 Source [facility]ICKER Swab [facility] Nasopharyngeal Swab 12/12/19 6:12 AM EST 12/12/2022 6:26 AM EST Comment:Specimen Source->Juanito opharyngeal Swab Narrative Resulting Agency Comment Spec In Lab Stu Padilla MD MICROBIOLOGY - GENER AL ORDERABLES [facility] [place] [address] * (ABNORMAL) Basic Metabolic Panel (non-fasting) (12/12/2022 12:30 AM EST) Glucose 283(H) 65 - 199 mg/dL [facility] Comment:Diabetes: >=200 mg/d L plus symptoms Blood Urea Nitrogen 15 10 - 20 mg/dL [facility] Creatinine 0.92 0.80 - 1.50 mg/dL [facility] Sodium 141 135 - 145 mmol/L [facility] Potassium 3.9 3.5 - 5.0 mmol/L [facility] Comment: Please note: ??Patients with WBC >100,000 may have falsely elevated Potassium levels. ??For accurate Potassium quantification in these patients send serum separator tube (gold top) for subsequent determinations. ??Contact the Clinical Chemistry Laboratory if there are any questions. Chloride 107 98 - 107 mmol/L [facility] Carbon Dioxide 24 22 - 31 mmol/L [facility] Anion Gap 10 5 - 15 mmol/L [facility] Calcium 8.7 8.5 - 10.5 mg/dL [facility] Est Glomerular Filtration Rate 84 >=60 mL/min/1. 73 m?? [facility] Comment: This patient's estimated GFR [...] and symptoms in addition to eGFR. Blood 12/12/2022 12:3 0 AM EST 12/12/2022 12:38 AM EST Narrative Resulting Agency Comment Spec In Lab Aristides Hinds MD CHEMISTRY ORDERABL ES Performing Organization Address City/State/[facility] Co de Phone Number [facility] [place] [address] * (ABNORMAL) Differential, Automated (12/11/2022 4:45 AM EST) Neutrophil % 64.0 % [facility] Neutrophil Absolute 5.22 1.70 - 6.10 x10(3)/mc L [facility] Lymph % 21.5 % [facility] Lymphocytes Abs 1.8 0.9 - 3.2 x10(3)/mc L [facility] Monocyte % 12.1 % [facility] Monocyte Abs 1.0(H) 0.3 - 0.9 x10(3)/mc L [facility] Eos % 1.6 % [facility] Eosinophils Abs 0.1 0.0 - 0.4 x10(3)/mc L [facility] Basophil % 0.4 % [facility] Baso Absolute 0.0 0.0 - 0.1 x10(3)/mc L [facility] Immature Gran % 0.40 % [facility] Comment: Immature granulocytes(IG's)percentage and absolute count will include metamyelocytes, myelocytes, and promyelocytes. Blood smears from CBCs yielding IG's will be scanned manually for concordance. If this scan disagrees with the automated IG or if promyelocytes are noted, a manual differential will be performed. Immature Gran Absolute 0.03 0.00 - 0.04 x10(3)/mc L [facility] Blood 12/11/2022 4:45 AM EST 12/11/2022 6:48 AM EST Narrative Resulting Agency Comment Spec In Lab Augustin Lou MD HEMATOLOGY ORDERABLE S [facility] [place] [address] * (ABNORMAL) Hemogram (12/11/2022 4:45 AM EST) White Blood Cell 8.2 4.0 - 9.5 x10(3)/mc L [facility] Red Blood Cell 3.57(L) 4.58 - 5.54 x10(6)/[facility] Hemoglobin 9.4(L) 13.7 - 16.5 g/dL [facility] Hematocrit 30.6(L) 40.5 - 48.5 % [facility] Mean Cell Volume 85.7 82.9 - 93.1 fL [facility] Mean Cell Hemoglobin 26.3(L) 27.5 - 32.1 pg [facility] Mean Cell Hemoglobin Concentration 30.7(L) 32.0 - 35.7 g/dL [facility] Platelet 185 145 - 357 x10(3)/mc L [facility] RDW Standard Deviation 60.1(H) 36.0 - 45.0 fL [facility] RDW coefficient of variation 19.4(H) 11.4 - 13.8 % [facility] Mean Platelet Volume 11.3 7.6 - 12.9 fL [facility] NRBC% auto 0.0 % [facility] NRBC Absolute 0.000 0.000 - 0.000 x10(3)/mc L [facility] Blood 12/11/2022 4:45 AM EST 12/11/2022 6:48 AM EST Narrative Resulting Agency Comment Spec In Lab Augustin Lou MD HEMATOLOGY ORDERABLE S Performing Organization Address [facility] Co de Phone Number [facility] [place] [address] * Heparin (unfractionated) Level (12/11/2022 4:45 AM EST) UF Heparin 0.80 IU/mL [facility] Comment: Specimen drawn more than one hour prior to testing. Results may not be reliable for heparin monitoring. Result may be falsely low. Heparin (anti-Xa) levels should be determined in a plasma sample that has been drawn 6 hours after a dose change to approximate steady-state for continuous heparin infusions. Indication specific Heparin (anti-Xa) levels based on order set selection: Acute DVT or PE treatment: 0.3 ? 0.7 IU/mL Thrombosis Prevention (eg. atrial fibrillation, nikki-procedural bridging, mechanical valves): 0.3 ? 0.7 IU/mL Acute Coronary Syndrome: 0.3 ? 0.7 IU/mL Stroke Indications: 0.3 ? 0.5 IU/mL Ultra-low intensity (select indications in cardiac surgery): 0.1 ? 0.3 IU/mL Blood 12/11/2022 4:45 AM EST 12/11/2022 6:49 AM EST Narrative Resulting Agency Comment Spec In Lab Aristides Hinds MD HEMATOLOGY ORDERAB LES Performing Organization Address [facility] Co de Phone Number [facility] [place] [address] * Basic Metabolic Panel (non-fasting) (12/11/2022 4:45 AM EST) Glucose Not Perf 65 - 199 [facility] Comment: Sample improperly processed prior to receipt. Diabetes: >=200 mg/dL plus symptoms Blood Urea Nitrogen 15 10 - 20 mg/dL [facility] Creatinine 1.10 0.80 - 1.50 mg/dL [facility] Sodium 143 135 - 145 mmol/L [facility] Potassium 3.7 3.5 - 5.0 mmol/L [facility] Comment: Please note: ??Patients with WBC >100,000 may have falsely elevated Potassium levels. ??For accurate Potassium quantification in these patients send serum separator tube (gold top) for subsequent determinations. ??Contact the Clinical Chemistry Laboratory if there are any questions. Chloride 106 98 - 107 mmol/L [facility] Carbon Dioxide 26 22 - 31 mmol/L [facility] Anion Gap 11 5 - 15 mmol/L [facility] Calcium 8.9 8.5 - 10.5 mg/dL [facility] Est Glomerular Filtration Rate 68 >=60 mL/min/1. 73 m?? [facility] Comment: This patient's estimated GFR [...] and symptoms in addition to eGFR. Blood 12/11/2022 4:45 AM EST 12/11/2022 6:48 AM EST Narrative Resulting Agency Comment Spec In Lab Aristides Hinds MD CHEMISTRY ORDERABL ES [facility] [place] [address] * Heparin (unfractionated) Level (12/10/2022 10:35 PM EST) UF Heparin 0.72 IU/mL [facility] Comment: Heparin (anti-Xa) levels should be determined in a plasma sample that has been drawn 6 hours after a dose change to approximate steady-state for continuous heparin infusions. Indication specific Heparin (anti-Xa) levels based on order set selection: Acute DVT or PE treatment: 0.3 ? 0.7 IU/mL Thrombosis Prevention (eg. atrial fibrillation, nikki-procedural bridging, mechanical valves): 0.3 ? 0.7 IU/mL Acute Coronary Syndrome: 0.3 ? 0.7 IU/mL Stroke Indications: 0.3 ? 0.5 IU/mL Ultra-low intensity (select indications in cardiac surgery): 0.1 ? 0.3 IU/mL Blood 12/10/2022 10:3 5 PM EST 12/10/2022 10:42 PM EST Narrative Resulting Agency Comment Spec In Lab Aristides Hinds MD HEMATOLOGY ORDERAB LES Performing Organization Address City/[facility]/ZIP Co de Phone Number [facility] [place] [address] * (ABNORMAL) Hemogram (12/10/2022 10:35 PM EST) White Blood Cell 6.8 4.0 - 9.5 x10(3)/mc L [facility] Red Blood Cell 3.62(L) 4.58 - 5.54 x10(6)/mc L [facility] Hemoglobin 9.6(L) 13.7 - 16.5 g/dL [facility] Hematocrit 31.4(L) 40.5 - 48.5 % [facility] Mean Cell Volume 86.7 82.9 - 93.1 fL [facility] Mean Cell Hemoglobin 26.5(L) 27.5 - 32.1 pg [facility] Mean Cell Hemoglobin Concentration 30.6(L) 32.0 - 35.7 g/dL [facility] Platelet 177 145 - 357 x10(3)/mc L [facility] RDW Standard Deviation 62.9(H) 36.0 - 45.0 fL [facility] RDW coefficient of variation 19.8(H) 11.4 - 13.8 % [facility] Mean Platelet Volume 10.5 7.6 - 12.9 fL [facility] NRBC% auto 0.0 % [facility] NRBC Absolute 0.000 0.000 - 0.000 x10(3)/mc L [facility] Blood 12/10/2022 10:3 5 PM EST 12/10/2022 10:42 PM EST Narrative Resulting Agency Comment Spec In Lab Aristides Hinds MD HEMATOLOGY ORDERAB LES Performing Organization Address [facility] Co de Phone Number [facility] [place] [address] * Heparin (unfractionated) Level (12/10/2022 4:40 PM EST) UF Heparin 0.49 IU/mL [facility] Comment: Heparin (anti-Xa) levels should be determined in a plasma sample that has been drawn 6 hours after a dose change to approximate steady-state for continuous heparin infusions. Indication specific Heparin (anti-Xa) levels based on order set selection: Acute DVT or PE treatment: 0.3 ? 0.7 IU/mL Thrombosis Prevention (eg. atrial fibrillation, nikki-procedural bridging, mechanical valves): 0.3 ? 0.7 IU/mL Acute Coronary Syndrome: 0.3 ? 0.7 IU/mL Stroke Indications: 0.3 ? 0.5 IU/mL Ultra-low intensity (select indications in cardiac surgery): 0.1 ? 0.3 IU/mL Blood 12/10/2022 4:40 PM EST 12/10/2022 4:58 PM EST Narrative Resulting Agency Comment Spec In Lab Aristides Hinds MD HEMATOLOGY ORDERAB LES [facility] [place] [address] * (ABNORMAL) Basic Metabolic Panel (non-fasting) (12/10/2022 10:08 AM EST) Glucose 261(H) 65 - 199 mg/dL [facility] Comment:Diabetes: >=200 mg/d L plus symptoms Blood Urea Nitrogen 12 10 - 20 mg/dL [facility] Creatinine 1.01 0.80 - 1.50 mg/dL [facility] Sodium 142 135 - 145 mmol/L [facility] Potassium 4.0 3.5 - 5.0 mmol/L [facility] Comment: Please note: ??Patients with WBC >100,000 may have falsely elevated Potassium levels. ??For accurate Potassium quantification in these patients send serum separator tube (gold top) for subsequent determinations. ??Contact the Clinical Chemistry Laboratory if there are any questions. Chloride 109(H) 98 - 107 mmol/L [facility] Carbon Dioxide 23 22 - 31 mmol/L [facility] Anion Gap 10 5 - 15 mmol/L [facility] Calcium 8.7 8.5 - 10.5 mg/dL [facility] Est Glomerular Filtration Rate 75 >=60 mL/min/1. 73 m?? [facility] Comment: This patient's estimated GFR was calculated [...] and symptoms in addition to eGFR. Blood 12/10/2022 10:0 8 AM EST 12/10/2022 10:34 AM EST Narrative Resulting Agency Comment Spec In Lab Aristides Hinds MD CHEMISTRY ORDERABL ES Performing Organization Address City/State/[facility] Co de Phone Number [facility] [address] [place] [address] * Differential, Automated (12/10/2022 9:20 AM EST) Neutrophil % 62.4 % [facility] Neutrophil Absolute 3.90 1.70 - 6.10 x10(3)/[facility] Lymph % 21.7 % [facility] Lymphocytes Abs 1.4 0.9 - 3.2 x10(3)/[facility] Monocyte % 13.4 % [facility] Monocyte Abs 0.8 0.3 - 0.9 x10(3)/[facility] Eos % 1.6 % [facility] Eosinophils Abs 0.1 0.0 - 0.4 x10(3)/[facility] Basophil % 0.6 % [facility] Baso Absolute 0.0 0.0 - 0.1 x10(3)/[facility] Immature Gran % 0.30 % [facility] Comment: Immature granulocytes(IG's)percentage and absolute count will include metamyelocytes, myelocytes, and promyelocytes. Blood smears from CBCs yielding IG's will be scanned manually for concordance. If this scan disagrees with the automated IG or if promyelocytes are noted, a manual differential will be performed. Immature Gran Absolute 0.02 0.00 - 0.04 x10(3)/mcL [facility] Blood 12/10/2022 9:20 AM EST 12/10/2022 9:27 AM EST Narrative Resulting Agency Comment Spec In Lab Augustin Lou MD HEMATOLOGY ORDERABLE S [facility] [place] [address] * (ABNORMAL) Hemogram (12/10/2022 9:20 AM EST) White Blood Cell 6.3 4.0 - 9.5 x10(3)/mc L [facility] Red Blood Cell 3.46(L) 4.58 - 5.54 x10(6)/mc L [facility] Hemoglobin 9.4(L) 13.7 - 16.5 g/dL [facility] Hematocrit 30.1(L) 40.5 - 48.5 % [facility] Mean Cell Volume 87.0 82.9 - 93.1 fL [facility] Mean Cell Hemoglobin 27.2(L) 27.5 - 32.1 pg [facility] Mean Cell Hemoglobin Concentration 31.2(L) 32.0 - 35.7 g/dL [facility] Platelet 180 145 - 357 x10(3)/mc L [facility] RDW Standard Deviation 63.2(H) 36.0 - 45.0 fL [facility] RDW coefficient of variation 19.9(H) 11.4 - 13.8 % [facility] Mean Platelet Volume 10.4 7.6 - 12.9 fL [facility] NRBC% auto 0.0 % [facility] NRBC Absolute 0.000 0.000 - 0.000 x10(3)/mc L [facility] Blood 12/10/2022 9:20 AM EST 12/10/2022 9:27 AM EST Narrative Resulting Agency Comment Spec In Lab Augustin Lou MD HEMATOLOGY ORDERABLE S [facility] [place] [address] * Differential, Automated (12/09/2022 5:42 PM EST) Neutrophil % 63.5 % [facility] Neutrophil Absolute 3.67 1.70 - 6.10 x10(3)/[facility] Lymph % 19.7 % [facility] Lymphocytes Abs 1.1 0.9 - 3.2 x10(3)/[facility] Monocyte % 14.4 % [facility] Monocyte Abs 0.8 0.3 - 0.9 x10(3)/[facility] Eos % 1.6 % [facility] Eosinophils Abs 0.1 0.0 - 0.4 x10(3)/[facility] Basophil % 0.5 % [facility] Baso Absolute 0.0 0.0 - 0.1 x10(3)/[facility] Immature Gran % 0.30 % [facility] Comment: Immature granulocytes(IG's)percentage and absolute count will include metamyelocytes, myelocytes, and promyelocytes. Blood smears from CBCs yielding IG's will be scanned manually for concordance. If this scan disagrees with the automated IG or if promyelocytes are noted, a manual differential will be performed. Immature Gran Absolute 0.02 0.00 - 0.04 x10(3)/[facility] Blood 12/09/2022 5:42 PM EST 12/09/2022 5:53 PM EST Narrative Resulting Agency Comment Spec In Lab Augustin Lou MD HEMATOLOGY ORDERABLE S Performing Organization Address City/[facility]/[place] [address] * (ABNORMAL) Hemogram (12/09/2022 5:42 PM EST) White Blood Cell 5.8 4.0 - 9.5 x10(3)/mc L [facility] Red Blood Cell 3.39(L) 4.58 - 5.54 x10(6)/mc L [facility] Hemoglobin 9.0(L) 13.7 - 16.5 g/dL [facility] Hematocrit 28.8(L) 40.5 - 48.5 % [facility] Mean Cell Volume 85.0 82.9 - 93.1 fL [facility] Mean Cell Hemoglobin 26.5(L) 27.5 - 32.1 pg [facility] Mean Cell Hemoglobin Concentration 31.3(L) 32.0 - 35.7 g/dL [facility] Platelet 167 145 - 357 x10(3)/mc L [facility] RDW Standard Deviation 61.7(H) 36.0 - 45.0 fL [facility] RDW coefficient of variation 20.3(H) 11.4 - 13.8 % [facility] Mean Platelet Volume 10.2 7.6 - 12.9 fL [facility] NRBC% auto 0.0 % [facility] [facility] NRBC Absolute 0.000 0.000 - 0.000 x10(3)/[facility] Blood 12/09/2022 5:42 PM EST 12/09/2022 5:53 PM EST Narrative Resulting Agency Comment Spec In Lab Augustin Lou MD HEMATOLOGY ORDERABLE S [facility] [place] [address] * COLONOSCOPY (12/09/2022 11:22 AM EST) COLONOSCOPY [facility] Endoscopy Procedure Date: 12/09/2022 11:22 AM ? Patient Name: Koko Zamora ? Date of : 1940 ? Age: 82 ? Order #: [id number] ? Instrument Name: ? Procedure: ? Colonoscopy Indications: ? Hematochezia Providers: ? Alan Munoz MD Referring MD: ?Stu Bass Amelben Medicines: ? Propofol per Anesthesia Complications: ? [...] Padilla MD GENERAL SURGICAL ORD ERABLES [employer]OVATION * Differential, Automated (12/09/2022 12:30 AM EST) Neutrophil % 61.7 % [facility] Neutrophil Absolute 4.49 1.70 - 6.10 x10(3)/[facility] LABORATORY Lymph % 22.9 % [facility] Lymphocytes Abs 1.7 0.9 - 3.2 x10(3)/[facility] LABORATORY Monocyte % 12.5 % [facility] Monocyte Abs 0.9 0.3 - 0.9 x10(3)/[facility] LABORATORY Eos % 1.8 % [facility] Eosinophils Abs 0.1 0.0 - 0.4 x10(3)/[facility] LABORATORY Basophil % 0.7 % [facility] Baso Absolute 0.0 0.0 - 0.1 x10(3)/[facility] LABORATORY Immature Gran % 0.40 % [facility] Comment: Immature granulocytes(IG's)percentage and absolute count will include metamyelocytes, myelocytes, and promyelocytes. Blood smears from CBCs yielding IG's will be scanned manually for concordance. If this scan disagrees with the automated IG or if promyelocytes are noted, a manual differential will be performed. Immature Gran Absolute 0.03 0.00 - 0.04 x10(3)/[facility] LABORATORY Blood 12/09/2022 12:3 0 AM EST 12/09/2022 12:50 AM EST Narrative Resulting Agency Comment Spec In Lab Augustin Luo MD HEMATOLOGY ORDERABLE S [facility] [place] [address] * (ABNORMAL) Hemogram (12/09/2022 12:30 AM EST) White Blood Cell 7.3 4.0 - 9.5 x10(3)/mc L [facility] Red Blood Cell 3.44(L) 4.58 - 5.54 x10(6)/mc L [facility] Hemoglobin 9.2(L) 13.7 - 16.5 g/dL [facility] Hematocrit 29.3(L) 40.5 - 48.5 % [facility] Mean Cell Volume 85.2 82.9 - 93.1 fL [facility] Mean Cell Hemoglobin 26.7(L) 27.5 - 32.1 pg [facility] Mean Cell Hemoglobin Concentration 31.4(L) 32.0 - 35.7 g/dL [facility] Platelet 183 145 - 357 x10(3)/mc L [facility] RDW Standard Deviation 62.1(H) 36.0 - 45.0 fL [facility] RDW coefficient of variation 20.3(H) 11.4 - 13.8 % [facility] Mean Platelet Volume 10.5 7.6 - 12.9 fL [facility] NRBC% auto 0.0 % [facility] NRBC Absolute 0.000 0.000 - 0.000 x10(3)/mc L [facility] Blood 12/09/2022 12:3 0 AM EST 12/09/2022 12:50 AM EST Narrative Resulting Agency Comment Spec In Lab Augustin Lou MD HEMATOLOGY ORDERABLE S Performing Organization Address City/[facility]/ZIP Co de Phone Number [facility] [place] [address] * Phosphorus (12/09/2022 12:30 AM EST) Phosphorus 2.8 2.5 - 4.5 mg/dL [facility] Blood 12/09/2022 12:3 0 AM EST 12/09/2022 12:50 AM EST Narrative Resulting Agency Comment Spec In Lab Stu Padilla MD CHEMISTRY ORDERABLES Performing Organization Address [facility] Co de Phone Number [facility] [place] [address] * Magnesium (12/09/2022 12:30 AM EST) Magnesium 0.80 0.69 - 1.07 mmol/L [facility] Blood 12/09/2022 12:3 0 AM EST 12/09/2022 12:50 AM EST Narrative Resulting Agency Comment Spec In Lab Stu Padilla MD CHEMISTRY ORDERABLES Performing Organization Address [facility] Phone Number [facility] [place] [address] * (ABNORMAL) Basic Metabolic Panel (non-fasting) (12/09/2022 12:30 AM EST) Glucose 151 65 - 199 mg/dL [facility] Comment:Diabetes: >=200 mg/d L plus symptoms Blood Urea Nitrogen 14 10 - 20 mg/dL [facility] Creatinine 0.88 0.80 - 1.50 mg/dL [facility] Sodium 142 135 - 145 mmol/L [facility] Potassium 3.7 3.5 - 5.0 mmol/L [facility] Comment: Please note: ??Patients with WBC >100,000 may have falsely elevated Potassium levels. ??For accurate Potassium quantification in these patients send serum separator tube (gold top) for subsequent determinations. ??Contact the Clinical Chemistry Laboratory if there are any questions. Chloride 109(H) 98 - 107 mmol/L [facility] Carbon Dioxide 22 22 - 31 mmol/L [facility] Anion Gap 11 5 - 15 mmol/L [facility] Calcium 8.5 8.5 - 10.5 mg/dL [facility] Est Glomerular Filtration Rate 87 >=60 mL/min/1. 73 m?? [facility] Comment: This patient's estimated GFR [...] and symptoms in addition to eGFR. Blood 12/09/2022 12:3 0 AM EST 12/09/2022 12:50 AM EST Narrative Resulting Agency Comment Spec In Lab Stu Padilla MD CHEMISTRY ORDERABLES Performing Organization Address [facility] Co de Phone Number [facility] [place] [place] [address] * Type and Screen Validity (12/08/2022 5:51 PM EST) [facility] T&S only valid at [facility] LABORATORY Comment:This Type and Screen result is only valid at the [facility] Blood 12/08/2022 5:51 PM EST 12/08/2022 5:55 PM EST Narrative Resulting Agency Comment Spec In Lab Augustin Lou MD BLOOD BANK LAB ORDER NICK Performing Organization Address [facility] Co de Phone Number [facility] [place] [address] * ABORH Recheck Status (12/08/2022 5:51 PM EST) [facility] ABORH Type Recheck Completed [facility] Blood 12/08/2022 5:51 PM EST 12/08/2022 5:55 PM EST Narrative Resulting Agency Comment Spec In Lab Augustin Lou MD BLOOD BANK LAB ORDER NICK Performing Organization Address [facility] Co de Phone Number [facility] [place] [address] * Differential, Automated (12/08/2022 5:51 PM EST) Pathologist [facility] Neutrophil % 62.4 % [facility] Neutrophil Absolute 4.12 1.70 - 6.10 x10(3)/[facility] LABORATORY Lymph % 22.8 % [facility] Lymphocytes Abs 1.5 0.9 - 3.2 x10(3)/[facility] LABOR[facility] Monocyte % 11.6 % [facility] Monocyte Abs 0.8 0.3 - 0.9 x10(3)/[facility] LABORATORY Eos % 2.0 % [facility] Eosinophils Abs 0.1 0.0 - 0.4 x10(3)/[facility] LABORATORY Basophil % 0.6 % [facility] Baso Absolute 0.0 0.0 - 0.1 x10(3)/[facility] LABORATORY Immature Gran % 0.60 % [facility] Comment: Immature granulocytes(IG's)percentage and absolute count will include metamyelocytes, myelocytes, and promyelocytes. Blood smears from CBCs yielding IG's will be scanned manually for concordance. If this scan disagrees with the automated IG or if promyelocytes are noted, a manual differential will be performed. Immature Gran Absolute 0.04 0.00 - 0.04 x10(3)/[facility] LABORATORY Blood 12/08/2022 5:51 PM EST 12/08/2022 5:57 PM EST Narrative Resulting Agency Comment Spec In Lab Augustin Lou MD HEMATOLOGY ORDERABLE S [facility] [place] [address] * (ABNORMAL) Hemogram (12/08/2022 5:51 PM EST) White Blood Cell 6.6 4.0 - 9.5 x10(3)/mc L [facility] Red Blood Cell 3.47(L) 4.58 - 5.54 x10(6)/ L [facility] Hemoglobin 9.4(L) 13.7 - 16.5 g/dL [facility] Hematocrit 29.9(L) 40.5 - 48.5 % [facility] Mean Cell Volume 86.2 82.9 - 93.1 fL [facility] Mean Cell Hemoglobin 27.1(L) 27.5 - 32.1 pg [facility] Mean Cell Hemoglobin Concentration 31.4(L) 32.0 - 35.7 g/dL [facility] Platelet 184 145 - 357 x10(3)/mc L [facility] RDW Standard Deviation 62.3(H) 36.0 - 45.0 fL [facility] RDW coefficient of variation 20.1(H) 11.4 - 13.8 % [facility] Mean Platelet Volume 10.9 7.6 - 12.9 fL [facility] NRBC% auto 0.0 % [facility] NRBC Absolute 0.000 0.000 - 0.000 x10(3)/ L [facility] Blood 12/08/2022 5:51 PM EST 12/08/2022 5:57 PM EST Narrative Resulting Agency Comment Spec In Lab Augustin Lou MD HEMATOLOGY ORDERABLE S Performing Organization Address City/[facility]/ZIP Co de Phone Number [facility] [place] [address] * Antibody screen (12/08/2022 5:51 PM EST) Pathologist [facility] Ab Screen Interp Negative [facility] Expires at [id number] on: 12/11/2022 [facility] Blood 12/08/2022 5:51 PM EST 12/08/2022 5:55 PM EST Narrative Resulting Agency Comment Spec In Lab Augustin Lou MD BLOOD BANK LAB ORDER NICK [facility] [place] [address] * ABO/Rh Typing (12/08/2022 5:51 PM EST) ABORH Type O Pos [facility] Blood 12/08/2022 5:51 PM EST 12/08/2022 5:55 PM EST Narrative Resulting Agency Comment Spec In Lab Augustin Lou MD BLOOD BANK LAB ORDER NICK Performing Organization Address City/[facility] Co de Phone Number [facility] [place] [address] * APTT (12/08/2022 5:51 PM EST) Partial Thromboplastin Time 28 25 - 37 sec [facility] Comment: The PTT is NOT appropriate for heparin monitoring. Use the Anti-Xa level for heparin monitoring (HEP UFH) or LMWH monitoring (HEP LMW). A PTT less than 37 seconds generally indicates adequate hemostasis. Blood 12/08/2022 5:51 PM EST 12/08/2022 5:57 PM EST Narrative Resulting Agency Comment Spec In Lab Stu Padilla MD HEMATOLOGY ORDERABLE S Performing Organization Address [facility] de Phone Number [facility] [place] [address] * (ABNORMAL) Prothrombin Time (12/08/2022 5:51 PM EST) Prothrombin Time 12.6(H) 9.4 - 12.5 sec [facility] International Normalization Ratio 1.1 [facility] Comment: An INR <2.0 indicates [...] be appropriate depending on clinical circumstances. Blood 12/08/2022 5:51 PM EST 12/08/2022 5:57 PM EST Narrative Resulting Agency Comment Spec In Lab Stu Padilla MD HEMATOLOGY ORDERABLE S Performing Organization Address [facility] Co de Phone Number [facility] [place] [address] * Hepatic Function Panel (12/08/2022 5:51 PM EST) Protein, Total 6.1 6.1 - 8.0 g/dL [facility] Albumin 3.8 3.2 - 5.2 g/dL [facility] Aspartate Aminotransferase 14 0 - 39 unit/L [facility] Alanine Aminotransferase 20 0 - 55 unit/L [facility] Alkaline Phosphatase 86 40 - 130 unit/L [facility] Bilirubin, Total 1.2 0.2 - 1.3 mg/dL [facility] Bilirubin, Direct 0.2 0.0 - 0.3 mg/dL [facility] Blood 12/08/2022 5:51 PM EST 12/08/2022 5:57 PM EST Narrative Resulting Agency Comment Spec In Lab Stu Padilla MD CHEMISTRY ORDERABLES [facility] [place] [address] * (ABNORMAL) Basic Metabolic Panel (non-fasting) (12/08/2022 5:51 PM EST) Glucose 201(H) 65 - 199 mg/dL [facility] Comment:Diabetes: >=200 mg/d L plus symptoms Blood Urea Nitrogen 16 10 - 20 mg/dL [facility] Creatinine 0.87 0.80 - 1.50 mg/dL [facility] Sodium 138 135 - 145 mmol/L [facility] Potassium 4.0 3.5 - 5.0 mmol/L [facility] Comment: Please note: ??Patients with WBC >100,000 may have falsely elevated Potassium levels. ??For accurate Potassium quantification in these patients send serum separator tube (gold top) for subsequent determinations. ??Contact the Clinical Chemistry Laboratory if there are any questions. Chloride 107 98 - 107 mmol/L [facility] Carbon Dioxide 22 22 - 31 mmol/L [facility] Anion Gap 9 5 - 15 mmol/L [facility] Calcium 8.7 8.5 - 10.5 mg/dL [facility] Est Glomerular Filtration Rate 87 >=60 mL/min/1. 73 m?? [facility] Comment: This patient's estimated GFR [...] and symptoms in addition to eGFR. Blood 12/08/2022 5:51 PM EST 12/08/2022 5:57 PM EST Narrative Resulting Agency Comment Spec In Lab Stu Padilla MD CHEMISTRY ORDERABLES [facility] [place] [address] documented in this encounter Visit Diagnoses Not on filedocumented in this encounter Admitting Diagnoses Diagnosis GI bleed Hemorrhage of gastrointestinal tract, unspecified documented in this encounter Administered Medications Inactive Administered Medications - up to 3 most recent administrations Medication Order MAR Action Action Date Dose Rate Site apixaban (Eliquis) tablet 2.5 mg 2.5 mg, Oral, 2 TIMES DAILY, First dose on Fri12/11/22 at 1015, Until Discontinued, Anticoagulant, Routine, Restricted anticoagulant, choose the most appropriate response: Approved indication of non-valvular atrial fibrillation Given 12/12/2022 8:14 AM EST 2.5 mg Given 12/11/2022 8:52 PM EST 2.5 mg Given 12/11/2022 9:41 AM EST 2.5 mg clopidogreL (Plavix) tablet 75 mg 75 mg, Oral, DAILY, First dose on Fri12/09/22 at 1845, Until Discontinued, Routine Given 12/12/2022 8:14 AM EST 75 mg Given 12/11/2022 8:20 AM EST 75 mg Given 12/10/2022 8:16 AM EST 75 mg metoprolol succinate XL (Toprol-XL) tablet 25 mg 25 mg, Oral, DAILY, First dose (after last modification) on Brandi 12/12/22 at 1030, Until Discontinued, DO NOT CRUSH OR OPEN, Routine Given 12/12/2022 11:22 AM EST 25 mg pantoprazole (Protonix) injection 40 mg 40 mg, Intravenous, 2 TIMES DAILY, First dose on Fri12/08/22 at 2100, Until Discontinued Given 12/12/2022 8:14 AM EST 4 0 mg Given 12/11/2022 8:52 PM EST 40 mg Given 12/11/2022 8:20 AM EST 40 mg polyethylene glycoL (Miralax) packet 17 g 17 g, Oral, DAILY, First dose on Fri12/11/22 at 0900, Until Discontinued, Routine Given 12/12/2022 8:13 AM EST 17 g Given 12/11/2022 8:20 AM EST 17 g rosuvastatin (Crestor) tablet 40 mg 40 mg, Oral, DAILY, First dose on Fri12/08/22 at 1845, Until Discontinued, Routine Given 12/12/2022 8:14 AM EST 40 mg Given 12/11/2022 8:20 AM EST 40 mg Given 12/10/2022 8:16 AM EST 40 mg sodium chloride 0.9 % (flush) (BD PosiFlush Normal Saline 0.9) flush 5 mL 5 mL, Intravenous, 2 TIMES DAILY, First dose on Fri12/08/22 at 2100, Until Discontinued, Routine Given 12/12/2022 8:16 AM EST 5 mLs Given 12/11/2022 8:53 PM EST 5 mLs Given 12/11/2022 8:23 AM EST 5 mLs tamsulosin (Flomax) capsule 0.4 mg 0.4 mg, Oral, DAILY, First dose on Fri12/08/22 at 1845, Until Discontinued, DO NOT CRUSH OR OPEN, Routine Given 12/12/2022 8:14 AM EST 0.4 mg Given 12/11/2022 8:20 AM EST 0.4 mg Given 12/10/2022 8:16 AM EST 0.4 mg documented in this encounter Active and Recently Administered Medications Times are shown in EST. Scheduled Medication Order 12/10/2022 12/11/2022 12/12/2022 apixaban (Eliquis) tablet 2.5 mg 2.5 mg, Oral, 2 TIMES DAILY, First dose on Fri12/11/22 at 1015, Until Discontinued, Anticoagulant, Routine, Restricted anticoagulant, choose the most appropriate response: Approved indication of non-valvular atrial fibrillation 0941 (Given - Provider: Rubia Horne RN)2051 (Given - Provider: Luann Barrientos RN) 0814 (Given - Provider: Corrie Harvey RN) clopidogreL (Plavix) tablet 75 mg 75 mg, Oral, DAILY, First dose on Fri12/09/22 at 1845, Until Discontinued, Routine 0816 (Given - Provider: Rubia Horne RN) 0820 (Given - Provider: Rubia Horne RN) 0814 (Given - Provider: Corrie Harvey RN) metoprolol succinate XL (Toprol-XL) tablet 25 mg 25 mg, Oral, DAILY, First dose (after last modification) on Fri12/12/22 at 1030, Until Discontinued, DO NOT CRUSH OR OPEN, Routine 1122 (Given - Provider: Brittany Avila, DION) pantoprazole (Protonix) injection 40 mg 40 mg, Intravenous, 2 TIMES DAILY, First dose on 12/08/22 at 2100, Until Discontinued 0900 (Given - Provider: Rubia Horne RN)2241 (Given - Provider: Barbara Yuan, DION) 08 (Given - Provider: Rubia Horne RN)2051 (Given - Provider: Luann Barrientos RN) 08 (Given - Provider: Corrie Harvey RN) polyethylene glycoL (Miralax) packet 17 g 17 g, Oral, DAILY, First dose on Fri12/11/22 at 0900, Until Discontinued, Routine 0820 (Given - Provider: Rubia Horne RN) 0813 (Given - Provider: Corrie Harvey RN) rosuvastatin (Crestor) tablet 40 mg 40 mg, Oral, DAILY, First dose on 12/08/22 at 1845, Until Discontinued, Routine 0816 (Given - Provider: Rubia Horne RN) 0820 (Given - Provider: Rubia Horne RN) 0814 (Given - Provider: Corrie Harvey RN) sodium chloride 0.9 % (flush) (BD PosiFlush Normal Saline 0.9) flush 5 mL 5 mL, Intravenous, 2 TIMES DAILY, First dose on 12/08/22 at 2100, Until Discontinued, Routine 0816 (Given - Provider: Rubia Horne RN)2241 (Given - Provider: Barbara Yuan, DION) 822 (Given - Provider: Rubia Horne RN)2052 (Given - Provider: Luann Barrientos RN) 08 (Given - Provider: Corrie Harvey, DION) tamsulosin (Flomax) capsule 0.4 mg 0.4 mg, Oral, DAILY, First dose on Fri12/08/22 at 1845, Until Discontinued, DO NOT CRUSH OR OPEN, Routine 0816 (Given - Provider: Rubia Horne RN) 0820 (Given - Provider: Rubia Horne RN) 0814 (Given - Provider: Corrie Harvey RN) Continuous Medication Order 12/10/2022 12/11/2022 12/12/2022 heparin (porcine) 50 units/mL in dextrose 5% 500 mL infusion (CANCELED)(Linked Group 1) 0-5,000 Units/hr (0-100 mL/hr), Intravenous, CONTINUOUS, Starting on Fri12/10/22 at 1030, Until Fri12/11/22 at 0924, Begin infusion at 1,200 units per hr [...] Heparin UFH Level - Per Protocol, Routine 1025 (New Bag - Provider: Rubia Horne RN)2313 (Rate/Dose Change - Provider: Barbara Yuan RN) 0526 (New Bag - Provider: Barbara Yuan RN)0715 (Rate/Dose Change - Provider: Barbara Yuan RN)0944 (Stopped - Provider: Rubia Horne RN) PRN Medication Order 12/10/2022 12/11/2022 12/12/2022 carboxymethylcellulose (Refresh Plus) 0.5 % ophthalmic drops 2 drop 2 drop, Both Eyes, 3 TIMES DAILY PRN, Starting on 12/08/22 at 1745, Until Brandi 12/12/22 at 1832, Dry Eyes, Routine lidocaine (Xylocaine) 1% (10 mg/mL) injection 3 mg 3 mg (0.3 mL), Subcutaneous, ONCE PRN, 1 dose, Starting on 12/08/22 at 1745, Until Brandi 12/12/22 at 1832, for discomfort with PIV insertion, Routine sodium chloride 0.9 % (flush) (BD PosiFlush Normal Saline 0.9) flush 5-20 mL 5-20 mL, Intravenous, EVERY 1 MIN PRN, Starting on 12/08/22 at 1745, Until Brandi 12/12/22 at 1832, flush, Flush pertains to all indwelling lines. Flush per protocol found in the job aid using the link provided on this medication record., Routine Linked Groups Order Group 1: heparin (porcine) 50 units/mL in dextrose 5% 500 mL infusion (CANCELED)Jump to med 0-5,000 Units/hr (0-100 mL/hr), Intravenous, CONTINUOUS, Starting on Fri12/10/22 at 1030, Until Fri12/11/22 at 0924, Begin infusion at 1,200 units per hr [...] Heparin UFH Level - Per Protocol, Routine And heparin (porcine) (1,000 units/mL) injection 0-8,000 Units (CANCELED) 0-8,000 Units, Intravenous, BOLUS PER HEPARIN PROTOCOL, Starting on Fri12/10/22 at 0939, Until Fri12/11/22 at 0924, Per Protocol, START ADJUSTMENT SCHEDULE 6 HOURS AFTER STARTING INFUSION Bolus doses are rounded to the nearest 100 units. If Heparin UFH Level is: - Less than 0.1 international unit/mL: Bolus 70 units/kg (Maximum of 8,000 units) = Bolus 5,500 units - 0.1 - 0.19 International unit/mL: Bolus 35 units/kg (Maximum of 4,000 units) = Bolus 2,700 units - Equal to or greater than 0.2 international unit/mL: No Bolus, Routine documented in this encounter Care Teams Manufacturing Clerk Relationship Specialty Start Date End Date Bobby Das MD [address] [place] [address] [place] [id number] PCP - General 10/02/10 documented as of this encounter
--- OUTSIDE RECORDS SUMMARY | 2024-09-17 01:30 | XMS_ITS | Encounter Summary ---
[place] [address] Care Team Providers Care Modeling Analyst Name Role Phone Bobby Das MD Primary Care Provider [phone] Reason for Visit * Auth/Cert (Routine) Specialty Diagnoses / Procedures Referred By Colby quezada Referred To Contact Diagnoses GI bleed gi bleed [place] [address] [facility] Referral ID Status Reason Start Date Expiration Date Visits Re quested Visits Authorized [id number] 1 1 Encounter Details Date Type Department Care Team (Latest Contact Info) Description 12/08/2022 4:21 PM EST - 12/12/2022 4:00 PM [facility] Hospital Encounter Intermediate [place] [address] [place] [address] [place] [address] Gastrointestinal hemorrhage, unspecified gastrointestinal hemorrhage type; 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 Hypertriglyceridemia ??? Adhesive [...] bleed in 05/31 presenting [address] transfer from [facility] for hematochezia. ?? Mr. Zamora first had [...] rectum, at which point he presented to [facility] for further workup. ?? Per report, patient [...] further management. Primary Team Inpatient Physicians at [facility] was: Attending Physician(s): Aristides Hinds MD Resident(s): Augustin Lou MD; Remigio Morel MD Inpatient Provider Contact Information: If you have questions about this document please contact the [facility] gravity meter operator at and ask for one of the providers above. If these providers are unavailable your call will be answered by an on- call hospital physician. Important Lab Data: Recent Labs 12/12/22 0819 12/11/2244412/10/22 2235 WBC 5.6 8.2 6.8 HGB 9.7* [...] Procedure Component Value - Date/Time COVID-19 PCR [[id number]] Collected: 12/12/22611 Lab Status: Final result Specimen: [...] using the Simplexa COVID-19 Direct Assay by MENA360 as authorized by the FDA issued Emergency [...] Department of Pathology and Laboratory Medicine at [facility], certified under the Clinical Laboratory Improvement [...] fact sheets at the following FDA website: https://www.fda.gov/medical-devices/tkoxaxhtiji-wtvttgg-5460-cvftq-48-yjslrdlix- rzw-txhvzqeocivjzz-vwxjvyz-devices/nvzup-kysebsywbfb-uroa SARS-CoV-2 Source BENDING ROLL HAND Swab Microbiology Results (last 6 months) Procedure Component Value - Date/Time COVID-19 PCR [[id number]] Collected: 12/12/22611 Lab Status: Final result Specimen: [...] diagnosis of COVID-19 is performed using the Anita Margaritaa COVID-19 Direct Assay by MENA360 as authorized by the FDA issued Emergency [...] Department of Pathology and Laboratory Medicine at [facility], certified under the Clinical Laboratory Improvement [...] fact sheets at the following FDA website: https://www.fda.gov/medical-devices/guicodsipca-cctkwlj-1117-hcrfv-38-wyjhjilxd- wtj-okwmzqjrqjnqfp-pmjgrps-devices/lpsrt-ygwrhrxulpf-fflp SARS-CoV-2 Source BENDING ROLL HAND Swab Diagnostic Studies: Colonoscopy (12/09): Impression: ? [...] Center 05/27/2023 11:00 AM Giovani Ponce MD [facility] GASTRO [facility] 12/16/2022 11:[address] Bobby Reilly [facility] Primary [facility] [place] Your Inpatient Doctor: MD Aristides Hughes MD Aditya Sharma, MD Your Primary Care Provider: Bobby Das MD [phone] For questions regarding this document or issues relating to this hospitalization on the Medical Service, please contact your inpatient physician through the [facility] Collection Support Specialist . Issues afterhours and on weekends will [...] occurs, please contact your Doctor. Please call [phone] before 8pm Mon-Fri with problems, questions or concerns. If you call after 8pm or on weekends, call the Hospital at [phone] and ask to speak to the Animal Shelter Supervisor software controls engineer and the gravity meter operator will contact that person for you. When should you call for help? Call [phone] anytime you think you may need emergency [...] any problems. Where can you learn more? [facility] View your After Visit Summary and more online at [email or web address] If you would like to provide feedback about your hospital experience, please call the Office of Patient and Family Relations at . If you have received this After Visit Summary in error, please immediately return it in person to the department, or notify the [facility] Privacy Office by calling toll free at between the hours of 8AM and 5PM to arrange for our retrieval of the documents at no cost to you. Content Version: 12.2 ?? 8383-5290 [employer]. Care instructions adapted under license by [facility]. If you have questions about a medical condition or this instruction, always ask your healthcare professional. [employer] disclaims any warranty or liability for your use of this information. Discharge References/Attachments None To-Do List To-Do List Future Appointments Provider Department Dept Phone 05/27/2023 11:00 AM Giovani Ponce MD Gastroenterology at [facility] Arrive at: Supply Chain Buyer Area [phone] Future Orders Complete By Expires CBC (with Diff) [[id number] Custom] 12/19/2022 (Approximate) 06/20/2023 Process Instructions: Scheduling Instructions: Comments: Questions: Provider Contact Information: Bobby Das MD [address] [place] [address] / [facility] [address] Signed: Remigio Morel MD Discharged: 12/12/2022 [...] occurs, please contact your Doctor. Please call [phone] before 8pm Mon-Fri with problems, questions or concerns. If you call after 8pm or on weekends, call the Hospital at [phone] and ask to speak to the Animal Shelter Supervisor software controls engineer and the gravity meter operator will contact that person for you. When should you call for help? Call [phone] anytime you think you may need emergency [...] any problems. Where can you learn more? [facility] View your After Visit Summary and more online at [email or web address] If you would like to provide feedback about your hospital experience, please call the Office of Patient and Family Relations at . If you have received this After Visit Summary in error, please immediately return it in person to the department, or notify the [facility] Privacy Office by calling toll free at between the hours of 8AM and 5PM to arrange for our retrieval of the documents at no cost to you. Content Version: 12.2 ?? 7865-4605 [employer]. Care instructions adapted under license by [facility]. If you have questions about a medical condition or this instruction, always ask your healthcare professional. [employer] disclaims any warranty or liability for [...] Center 05/27/2023 11:00 AM Giovani Ponce MD [facility] GASTRO [facility] 12/16/2022 11:[address] Bobby Reilly [facility] Primary [facility] [place] Your Inpatient Doctor: MD Aristides Hughes MD Aditya Sharma, MD Your Primary Care Provider: Bobby Das MD [phone] For questions regarding this document or issues relating to this hospitalization on the Medical Service, please contact your inpatient physician through the [facility] Collection Support Specialist . Issues afterhours and on weekends will be handled by the Hospitalist staff on-call. documented in this encounter Medications at Time of Discharge Medication Sig Dispensed Refills Start Date End Date apixaban (Eliquis) 2.5 mg Tablet Take 1 tablet by mouth 2 times daily. 60 tablet 3 12/12/2022 fluticasone propionate (FLONASE) 50 mcg/actuation Grannis, Suspension 1 spray by Each Nare route [...] Problems Diagnosis ??? 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 HFrEF (heart [...] spent >30 minutes (Day of Discharge Code 03363) involved in the final examination of the patient, discussion of the hospital stay, instructions for continuing care to all relevant caregivers, and preparation of discharge records, prescriptions and referral forms. Plans ? Discharge to Home ? Follow-up scheduled with PCP ? Please see the Discharge Summary for complete details of any medication changes and additional plans. * Brtitany Avila RN - 12/12/2022 1:39 PM EST [...] Patient is mobile. Route: RA * Evelia Covington, OT - 12/12/2022 10:12 AM EST Occupational [...] [facility] INTER[facility]IONL RAD ??? PRO COLONOSCOPY, DIAGNOSTIC N/A 12/09/2022 COLONOSCOPY, DIAGNOSTIC performed by Giovani Ponce MD at [facility] ENDOSCOPY ??? PRO COLONOSCOPY, FLEX, W/CONTROL, BLEEDING N/A 06/25/2022 COLONOSCOPY; W CONTROL OF BLEEDING, ANY METHOD performed by Giovani Ponce MD at [facility] ENDOSCOPY ??? PRO EMBLC/THRMBC FEMORAL POPLITEAL AORTO-ILIAC ARTERY Left 05/15/2022 EMBOLECTOMY OR THROMBECTOMY, FEMOROPOPLITEAL, AORTOILIAC ARTERY BY LEG INCISION (WRVU 19.48) performed by Fito Summers MD at [facility] MAIN OR ??? PRO SMALL BOWEL ENDOSCOPY, PAST 2ND DUOD N/A 06/25/2022 SMALL BOWEL ENTEROSCOPY performed by Giovani Ponce MD at [facility] [...] MD at [facility] ENDOSCOPY Social History: Patient lives with [...] and measurable assessment of functional outcome. Pager: [phone] EVELIA COVINGTON OT 12/12/2022 Occupational Therapy Rehabilitation Department * Remigio Morel MD - 12/11/2022 7:02 AM EST [facility] Inpatient Progress Note Date: 12/11/22 Patient Information: Koko Zamora [id number] 1940 PCP: Bobby Das MD PCP Admit [...] 142 138 CL 109* 109* 107 CO2 23 22 22 K 4.0 3.7 4.0 MAGNESIUM -- [...] Gas) No results found for: PHART, PO2ART, WAY0CNR, SVG3VAX Microbiology: Microbiology Results (Last 30 days) No [...] recommendations ?? #HFrEF (EF 28%) #CAD s/p MAPARO to OM1 #PAD s/p multiple vascular interventions [...] 12/11/22 7:02 AM Internal Medicine, PGY-1 Pager: [phone] Associated attestation - Aristides Hinds MD - [...] is on the [facility] inpatient only procedure list (status C) due [...] Morel MD - 12/10/2022 8:01 AM EST [facility] Inpatient Progress Note Date: 12/10/22 Patient Information: Koko Zamora [id number] 1940 PCP: Bobby Das MD PCP Admit [...] 168 hours. Endocrine Recent Labs 05/31/22 1120 05/18/22 2000 TSH 1.67 2.27 No results for input(s): POCGLU in the last 168 hours. Heme No results for input(s): LDH, HAPTOGLOBIN, URICACID in the last 168 hours. ABG (Arterial Blood Gas) No results found for: PHART, PO2ART, PCD0NJT, LHP5MXR Microbiology: Microbiology Results (Last 30 days) No [...] 12/10/22 10:46 AM Internal Medicine, PGY-1 Pager: [phone] Associated attestation - Aristides Hinds MD - [...] is on the [facility] inpatient only procedure list (status C) due [...] OSH w/recurrent symptomatic anemia now transferred to [facility] for further care. INTERVAL: - Completed prep [...] w/recurrent sympto matic anemia now transferred to [facility] for further care. With reported hematochezia, the [...] August MD PGY-5, Gastroenterology Associated attestation - Giovani Ponce MD - 12/09/2022 11:19 AM EST [...] Morel MD - 12/09/2022 6:14 AM EST [facility] Inpatient Progress Note Date: 12/09/22 Patient Information: Koko Zamora [id number] 1940 PCP: Bobby Das MD PCP Admit [...] Gas) No results found for: PHART, PO2ART, SQQ4YWG, BFQ6GPW Microbiology: Microbiology Results (Last 30 days) No [...] since receiving 2 units of pRBCs at [facility]. Will continue IV PPI BID, keep him [...] 12/09/22 6:14 AM Internal Medicine, PGY-1 Pager: [phone] Associated attestation - Aristides Hinds MD - [...] is on the [facility] inpatient only procedure list (status C) due [...] ischemia I99.8 ??? 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 HFrEF [...] PCP: Bobby Das MD PCP phone number: [phone] Date of Admission: 12/08/2022 ( Hospital Day [...] bleed in 05/31 presenting in transfer from [facility] for hematochezia. Mr. Zamora first had an [...] rectum, at which point he presented to [facility] for further workup. Per report, patient demonstrated [...] month ??? fluticasone propionate (FLONASE) 50 mcg/actuation Grannis, Suspension 1 spray by Each Nare route [...] Psych: cooperative. Labs: CBC: Recent Labs 12/08/22 175 WBC 6.6 HGB 9.4* HCT 29.9* PLATELET 184 NEUTROABS 4.12 Chemistry: Recent Labs 12/08/22175006/02/22 0030 06/01/22 0100 NA 138 142 141 K 4.0 3.8 4.0 CL 107 108* 108* CO2 24 BUN 16 12 23* CREATININE 0.87 0.71* 0.78* GLUCOSE 201* 151 148 ANIONGAP 9 10 9 Recent Labs 12/08/22 17506/02/22 0030 06/01/22 0100 05/31/22 1050 05/17/22 0333 05/16/22 0301 CALCIUM 8.7 8.1* 8.6 9.1 < > 8.2* MAGNESIUM -- 0.83 0.93 0.93 < > 0.77 PHOS -- -- -- 3.2 -- 3.7 < > = values in this interval not displayed. LFT's: Recent Labs 12/08/22 17505/31/22 1050 BILITOT 1.2 <0.2* BILIDIR 0.2 0.1 ALBUMIN 3.8 4.1 ALKPHOS 86 63 ALT 20 44 AST 14 24 Coags: Recent Labs 12/08/221750 PT 12.6* INR 1.1 PTT 28 Cardiac [...] since receiving 2 units of pRBCs at [facility]. Will plan on starting IV PPI BID, [...] Status: Full Augustin Lou MD, PGY-2 12/08/2022 [facility] Medicine Blue Team #[id number] Associated attestation - Aristides Hinds MD - [...] Type: *No Product type* / Secondary Insurance: [facility] Prescription Coverage: Yes This plan was formulated with input from patient, Koko and team. All are in agreement with plan. Referral made to [facility]. Do Cuadra RN [phone] Pager [phone] * Plan of Care - Luann Barrientos [...] surrogate would be surrogate decision maker per [place] surrogate decision making law. (Only good for 180 days) Spouse Ursula Any patient receiving care in [place] must abide by [place] law. The hierarchy for surrogate decision making [...] (i) The agent with financial power of ip technology transactions attorney or a conservator appointed in accordance [...] Current DME: none Home Address confirmed as: [address] [place] [id number] Social & Family Supports: All names listed below confirmed with patient as current and correct Extended Emergency Contact Information Primary Emergency Contact: Ursula Zamora Address: [address] [place] [phone] [facility] Relation: Spouse Current Care Provided by: [...] Type: *No Product type* / Secondary Insurance: [facility] ONLY if patient has Medicare A&B - Does this patient have secondary insurance?: Yes ; Prescription Coverage: Yes Preferred Pharmacy: [id number] [address] [place] Status: Patient is a : No Primary Care Provider confirmed: Bobby Das MD [phone] Patient/Caregiver Goals of Treatment: Return home Potential Needs for Transition of Care: none Agency Referrals: Not Applicable Transportation: no concerns Transportation Anticipated: family or friend will provide Concerns to be Addressed: no discharge needs identified Assessment: Patient is admitted to [facility] service for GIB Plan: The patient alert [...] with transition of care planning. [facility] Patton [facility] [phone] * Plan of Care - Matt Raya [...] Box MD - 12/09/2022 5:35 PM EST [facility] Department of Cardiology Initial Consult Note Patient: Koko Zamora Primary Care: Bobby Das MD : 1940 Referring Provider: Giulia Xavier Date of service: 12/09/2022 Reason for consult: anticoagulation management in setting of GIB HISTORY OF PRESENT ILLNESS Koko Zamora is a 82 y.o. male with history of pre-diabetes, hyperlipidemia, mitral valve prolapse s/p MV repair in [place] in 2000, alcohol use disorder, duodenal & [...] [facility] INTER[facility]IONL RAD ??? PRO COLONOSCOPY, FLEX, W/CONTROL, BLEEDING N/A 06/25/2022 COLONOSCOPY; W CONTROL OF BLEEDING, ANY METHOD performed by Giovani Ponce MD at [facility] ENDOSCOPY ??? PRO EMBLC/THRMBC FEMORAL POPLITEAL AORTO-ILIAC ARTERY Left 05/15/2022 EMBOLECTOMY OR THROMBECTOMY, FEMOROPOPLITEAL, AORTOILIAC ARTERY BY LEG INCISION (WRVU 19.48) performed by Fito Summers MD at [facility] MAIN OR ??? PRO SMALL BOWEL ENDOSCOPY, PAST 2ND DUOD N/A 06/25/2022 SMALL BOWEL ENTEROSCOPY performed by Giovani Ponce MD at ST. [...] Ponce MD at [facility] ENDOSCOPY MEDICATIONS AND ALLERGIES Outpatient Medications [...] mitral valve prolapse s/p MV repair in [place] in 2000, alcohol use disorder, duodenal & [...] page if further consultation required. Chino Mckeon Head Athletic Trainer, PGY4 [phone] STAFF ADDENDUM Patient interviewed and [...] to contact patient to complete I/A. Per staffing manager, patient is asleep. Do Cuadra RN CM [phone] Pager [phone] * Op Note - Giovani Ponce MD - 12/09/2022 11:26 AM EST DH Operative Note Patient Name: oKko Zamora : [id number] MR#: [id number] Case Date: 12/09/2022 Surgeon: Surgeon(s) and Role: [...] OSH w/recurrent symptomatic anemia now transferred to [facility] for further care. At [facility], he noted he was passing bright red blood and strings of clots. Given this, paired with him feeling light-headed, [facility] felt he needed to be in tertiary [...] [facility] INTER[facility] RAD ??? PRO COLONOSCOPY, FLEX, W/CONTROL, BLEEDING N/A 06/25/2022 COLONOSCOPY; W CONTROL OF BLEEDING, ANY METHOD performed by Giovani Ponce MD at [facility] ENDOSCOPY ??? PRO EMBLC/THRMBC FEMORAL POPLITEAL AORTO-ILIAC ARTERY Left 05/15/2022 EMBOLECTOMY OR THROMBECTOMY, FEMOROPOPLITEAL, AORTOILIAC ARTERY BY LEG INCISION (WRVU 19.48) performed by Fito Summers MD at [facility] MAIN OR ??? PRO SMALL BOWEL ENDOSCOPY, PAST 2ND DUOD N/A 06/25/2022 SMALL BOWEL ENTEROSCOPY performed by Giovani Ponce MD at ST. [...] Ponce MD at [facility] ENDOSCOPY SOCIAL HX: Social History Socioeconomic [...] month ??? fluticasone propionate (FLONASE) 50 mcg/actuation Grannis, Suspension 1 spray by Each Nare route [...] appropriate affect Labs: Labs personally reviewed in [facility] CBC: Recent Labs 12/08/22 1751 WBC 6.6 [...] IMAGING: Reports and images personally reviewed in [facility]. Images independently interpreted. No orders to display ENDOSCOPY: Reports and images personally reviewed in [facility] Colonoscopy 06/2022: Impression: ?- The examined portion [...] OSH w/recurrent symptomatic anemia now transferred to [facility] for further care. On meeting pt and [...] NPO other than prep/meds with sips. At [place], patient should be strict NPO. - Night [...] 12/12/2022 8:19 AM EST RAPID COVID-19 PCR ([facility]) Routine 12/12/2022 6:12 AM EST BASIC METABOLIC PANEL Routine 12/12/2022 12:30 AM EST HC UNFRACTIONATED HEPARIN (HEP UFH) Routine 12/11/2022 4:45 AM EST HEMOGRAM Routine 12/11/2022 4:45 AM EST DIFFERENTIAL, AUTOMATED Routine 12/11/19 4:45 AM EST HC CBC,PLT & AUTO DIFF Routine 4:45 AM EST BASIC METABOLIC PANEL Routine [...] HC CBC,PLT & AUTO DIFF Routine 3 5:42 PM EST COLONOSCOPY Routine 12/09/2022 11:22 AM EST Colonoscopy, Diagnostic ([id number]) 12/09/2022 11:18 AM EST hematochezia HEMOGRAM Routine [...] Cell 5.6 4.0 - 9.5 x10(3)/mc L [facility] Red Blood Cell 3.62(L) 4.58 - 5.54 x10(6)/mc L [facility] Hemoglobin 9.7(L) 13.7 - 16.5 g/dL [facility] Hematocrit 31.0(L) 40.5 - 48.5 % [facility] Mean Cell Volume 85.6 82.9 - 93.1 fL [facility] Mean Cell Hemoglobin 26.8(L) 27.5 - 32.1 pg [facility] Mean Cell Hemoglobin Concentration 31.3(L) 32.0 - 35.7 g/dL [facility] Platelet 180 145 - 357 x10(3)/mc L [facility] RDW Standard Deviation 59.0(H) 36.0 - 45.0 fL [facility] RDW coefficient of variation 18.6(H) 11.4 - 13.8 % [facility] Mean Platelet Volume 10.7 7.6 - 12.[address] [facility] NRBC% auto 0.0 % [facility] NRBC Absolute 0.000 0.000 - 0.000 x10(3)/mc L [facility] Blood 12/12/2022 8:19 AM EST 12/12/2022 8:58 AM EST Narrative Resulting Agency Comment Spec In Lab Aristides Hinds MD HEMATOLOGY ORDERAB LES [facility] [place] [address] * COVID-19 PCR (12/12/2022 6:12 AM EST) SARS-CoV-2 RNA (Rapid) Not Detected Not Detected [facility] Comment: This result should be [...] using the Simplexa COVID-19 Direct Assay by MENA360 as authorized by the FDA issued Emergency [...] Department of Pathology and Laboratory Medicine at [facility], certified under the Clinical Laboratory Improvement [...] fact sheets at the following FDA website: https://www.fda.gov/medical-devices/bfmufbeiqfj-tsfjpnn-6650-znosu-99-nrodvohqt- use-a glpnbrhwmkant-nckvlzv-ddcbrua/lprnd-pfznmhfruhb-uumb SARS-CoV-2 Source BENDING ROLL HAND Swab [facility] Nasopharyngeal Swab 12/12/19 6:12 AM EST 12/12/2022 6:26 AM EST Comment:Specimen Source->Juanito opharyngeal Swab Narrative Resulting Agency Comment Spec In Lab Stu Padilla MD MICROBIOLOGY - GENER AL ORDERABLES [facility] [place] [address] * (ABNORMAL) Basic Metabolic Panel (non-fasting) (12/12/2022 12:30 AM EST) Glucose 283(H) 65 - 199 mg/dL [facility] Comment:Diabetes: >=200 mg/d L plus symptoms Blood Urea Nitrogen 15 10 - 20 mg/dL [facility] Creatinine 0.92 0.80 - 1.50 mg/dL [facility] Sodium 141 135 - 145 mmol/L [facility] Potassium 3.9 3.5 - 5.0 mmol/L [facility] Comment: Please note: ??Patients with WBC >100,000 may have falsely elevated Potassium levels. ??For accurate Potassium quantification in these patients send serum separator tube (gold top) for subsequent determinations. ??Contact the Clinical Chemistry Laboratory if there are any questions. Chloride 107 98 - 107 mmol/L [facility] Carbon Dioxide 24 22 - 31 mmol/L [facility] Anion Gap 10 5 - 15 mmol/L [facility] Calcium 8.7 8.5 - 10.5 mg/dL [facility] Est Glomerular Filtration Rate 84 >=60 mL/min/1. 73 m?? [facility] Comment: This patient's estimated GFR [...] MD CHEMISTRY ORDERABL ES Performing Organization Address City/State/[facility] Co de Phone Number [facility] [place] [address] * (ABNORMAL) Differential, Automated (12/11/2022 4:45 AM EST) Neutrophil % 64.0 % [facility] Neutrophil Absolute 5.22 1.70 - 6.10 x10(3)/mc L [facility] Lymph % 21.5 % [facility] Lymphocytes Abs 1.8 0.9 - 3.2 x10(3)/mc L [facility] Monocyte % 12.1 % [facility] Monocyte Abs 1.0(H) 0.3 - 0.9 x10(3)/mc L [facility] Eos % 1.6 % [facility] Eosinophils Abs 0.1 0.0 - 0.4 x10(3)/mc L [facility] Basophil % 0.4 % [facility] Baso Absolute 0.0 0.0 - 0.1 x10(3)/mc L [facility] Immature Gran % 0.40 % [facility] Comment: Immature granulocytes(IG's)percentage and absolute count will include metamyelocytes, myelocytes, and promyelocytes. Blood smears from CBCs yielding IG's will be scanned manually for concordance. If this scan disagrees with the automated IG or if promyelocytes are noted, a manual differential will be performed. Immature Gran Absolute 0.03 0.00 - 0.04 x10(3)/mc L [facility] Blood 12/11/2022 4:45 AM EST 12/11/2022 6:48 AM EST Narrative Resulting Agency Comment Spec In Lab Augustin Lou MD HEMATOLOGY ORDERABLE S Performing Organization Address City/State/[facility] Co de Phone Number [facility] [place] [address] * (ABNORMAL) Hemogram (12/11/2022 4:45 AM EST) White Blood Cell 8.2 4.0 - 9.5 x10(3)/mc L [facility] Red Blood Cell 3.57(L) 4.58 - 5.54 x10(6)/mc L [facility] Hemoglobin 9.4(L) 13.7 - 16.5 g/dL [facility] Hematocrit 30.6(L) 40.5 - 48.5 % [facility] Mean Cell Volume 85.7 82.9 - 93.1 fL [facility] Mean Cell Hemoglobin 26.3(L) 27.5 - 32.1 pg [facility] Mean Cell Hemoglobin Concentration 30.7(L) 32.0 - 35.7 g/dL [facility] Platelet 185 145 - 357 x10(3)/mc L [facility] RDW Standard Deviation 60.1(H) 36.0 - 45.0 fL [facility] RDW coefficient of variation 19.4(H) 11.4 - 13.8 % [facility] Mean Platelet Volume 11.3 7.6 - 12.9 fL [facility] NRBC% auto 0.0 % [facility] NRBC Absolute 0.000 0.000 - 0.000 x10(3)/mc L [facility] Blood 12/11/2022 4:45 AM EST 12/11/2022 6:48 AM EST Narrative Resulting Agency Comment Spec In Lab Augustin Lou MD HEMATOLOGY ORDERABLE S Performing Organization Address City/[facility]/ZIP Co de Phone Number [facility] [place] [address] * Heparin (unfractionated) Level (12/11/2022 4:45 AM EST) UF Heparin 0.80 IU/mL [facility] Comment: Specimen drawn more [...] Resulting Agency Comment Spec In Lab Aristides Hnids MD HEMATOLOGY ORDERAB LES Performing Organization Address City/[facility]/ZIP Co de Phone Number [facility] [place] [address] * Basic Metabolic Panel (non-fasting) (12/11/2022 4:45 AM EST) Glucose Not Perf 65 - 199 [facility] Comment: Sample improperly processed prior to receipt. Diabetes: >=200 mg/dL plus symptoms Blood Urea Nitrogen 15 10 - 20 mg/dL [facility] Creatinine 1.10 0.80 - 1.50 mg/dL [facility] Sodium 143 135 - 145 mmol/L [facility] Potassium 3.7 3.5 - 5.0 mmol/L [facility] Comment: Please note: ??Patients with WBC >100,000 may have falsely elevated Potassium levels. ??For accurate Potassium quantification in these patients send serum separator tube (gold top) for subsequent determinations. ??Contact the Clinical Chemistry Laboratory if there are any questions. Chloride 106 98 - 107 mmol/L [facility] Carbon Dioxide 26 22 - 31 mmol/L [facility] Anion Gap 11 5 - 15 mmol/L [facility] Calcium 8.9 8.5 - 10.5 mg/dL [facility] Est Glomerular Filtration Rate 68 >=60 mL/min/1. 73 m?? [facility] Comment: This patient's estimated GFR [...] Lab Aristides Hinds MD CHEMISTRY ORDERABL ES [facility] [place] [address] * Heparin (unfractionated) Level (12/10/2022 10:35 PM EST) UF Heparin 0.72 IU/mL [facility] Comment: Heparin (anti-Xa) [...] Lab Aristides Hinds MD HEMATOLOGY ORDERAB LES [facility] [place] [place] [address] * (ABNORMAL) Hemogram (12/10/2022 10:35 PM EST) White Blood Cell 6.8 4.0 - 9.5 x10(3)/mc L [facility] Red Blood Cell 3.62(L) 4.58 - 5.54 x10(6)/mc L [facility] Hemoglobin 9.6(L) 13.7 - 16.5 g/dL [facility] Hematocrit 31.4(L) 40.5 - 48.5 % [facility] Mean Cell Volume 86.7 82.9 - 93.1 fL [facility] Mean Cell Hemoglobin 26.5(L) 27.5 - 32.1 pg [facility] Mean Cell Hemoglobin Concentration 30.6(L) 32.0 - 35.7 g/dL [facility] Platelet 177 145 - 357 x10(3)/mc L [facility] RDW Standard Deviation 62.9(H) 36.0 - 45.0 fL [facility] RDW coefficient of variation 19.8(H) 11.4 - 13.8 % [facility] Mean Platelet Volume 10.5 7.6 - 12.9 fL [facility] NRBC% auto 0.0 % [facility] NRBC Absolute 0.000 0.000 - 0.000 x10(3)/mc L [facility] Blood 12/10/2022 10:3 5 PM EST 12/10/2022 10:42 PM EST Narrative Resulting Agency Comment Spec In Lab Aristides Hinds MD HEMATOLOGY ORDERAB LES Performing Organization Address City/[facility]/ZIP Co de Phone Number [facility] [place] [address] * Heparin (unfractionated) Level (12/10/2022 4:40 PM EST) Pathologist [facility] UF Heparin 0.49 IU/mL [facility] Comment: Heparin (anti-Xa) levels [...] MD HEMATOLOGY ORDERAB LES Performing Organization Address City/[facility] Co de Phone Number [facility] [place] [address] * (ABNORMAL) Basic Metabolic Panel (non-fasting) (12/10/2022 10:08 AM EST) Glucose 261(H) 65 - 199 mg/dL [facility] Comment:Diabetes: >=200 mg/d L plus symptoms Blood Urea Nitrogen 12 10 - 20 mg/dL [facility] Creatinine 1.01 0.80 - 1.50 mg/dL [facility] Sodium 142 135 - 145 mmol/L [facility] Potassium 4.0 3.5 - 5.0 mmol/L [facility] Comment: Please note: ??Patients with WBC >100,000 may have falsely elevated Potassium levels. ??For accurate Potassium quantification in these patients send serum separator tube (gold top) for subsequent determinations. ??Contact the Clinical Chemistry Laboratory if there are any questions. Chloride 109(H) 98 - 107 mmol/L [facility] Carbon Dioxide 23 22 - 31 mmol/L [facility] Anion Gap 10 5 - 15 mmol/L [facility] Calcium 8.7 8.5 - 10.5 mg/dL [facility] Est Glomerular Filtration Rate 75 >=60 mL/min/1. 73 m?? [facility] Comment: This patient's estimated GFR [...] Lab Aristides Hinds MD CHEMISTRY ORDERABL ES [facility] [address] [place] [address] * Differential, Automated (12/10/2022 9:20 AM EST) Neutrophil % 62.4 % [facility] Neutrophil Absolute 3.90 1.70 - 6.10 x10(3)/[facility] Lymph % 21.7 % [facility] Lymphocytes Abs 1.4 0.9 - 3.2 x10(3)/[facility] Monocyte % 13.4 % [facility] Monocyte Abs 0.8 0.3 - 0.9 x10(3)/[facility] Eos % 1.6 % [facility] Eosinophils Abs 0.1 0.0 - 0.4 x10(3)/[facility] Basophil % 0.6 % [facility] Baso Absolute 0.0 0.0 - 0.1 x10(3)/mcL [facility] Immature Gran % 0.30 % [facility] Comment: Immature granulocytes(IG's)percentage and absolute count will include metamyelocytes, myelocytes, and promyelocytes. Blood smears from CBCs yielding IG's will be scanned manually for concordance. If this scan disagrees with the automated IG or if promyelocytes are noted, a manual differential will be performed. Immature Gran Absolute 0.02 0.00 - 0.04 x10(3)/[facility] Blood 12/10/2022 9:20 AM EST 12/10/2022 9:27 AM EST Narrative Resulting Agency Comment Spec In Lab Augustin Lou MD HEMATOLOGY ORDERABLE S [facility] [place] [address] * (ABNORMAL) Hemogram (12/10/2022 9:20 AM EST) White Blood Cell 6.3 4.0 - 9.5 x10(3)/mc L [facility] Red Blood Cell 3.46(L) 4.58 - 5.54 x10(6)/mc L [facility] Hemoglobin 9.4(L) 13.7 - 16.5 g/dL [facility] Hematocrit 30.1(L) 40.5 - 48.5 % [facility] Mean Cell Volume 87.0 82.9 - 93.1 fL [facility] Mean Cell Hemoglobin 27.2(L) 27.5 - 32.1 pg [facility] Mean Cell Hemoglobin Concentration 31.2(L) 32.0 - 35.7 g/dL [facility] Platelet 180 145 - 357 x10(3)/mc L [facility] RDW Standard Deviation 63.2(H) 36.0 - 45.0 fL [facility] RDW coefficient of variation 19.9(H) 11.4 - 13.8 % [facility] Mean Platelet Volume 10.4 7.6 - 12.[address] [facility] NRBC% auto 0.0 % [facility] NRBC Absolute 0.000 0.000 - 0.000 x10(3)/mc L [facility] Blood 12/10/2022 9:20 AM EST 12/10/2022 9:27 AM EST Narrative Resulting Agency Comment Spec In Lab Augustin Lou MD HEMATOLOGY ORDERABLE S Performing Organization Address City/[facility]/[place] [address] * Differential, Automated (12/09/2022 5:42 PM EST) [facility]il % 63.5 % [facility] Neutrophil Absolute 3.67 1.70 - 6.10 x10(3)/[facility] Lymph % 19.7 % [facility] Lymphocytes Abs 1.1 0.9 - 3.2 x10(3)/[facility] Monocyte % 14.4 % [facility] Monocyte Abs 0.8 0.3 - 0.9 x10(3)/[facility] Eos % 1.6 % [facility] Eosinophils Abs 0.1 0.0 - 0.4 x10(3)/[facility] Basophil % 0.5 % [facility] Baso Absolute 0.0 0.0 - 0.1 x10(3)/[facility] Immature Gran % 0.30 % [facility] Comment: Immature granulocytes(IG's)percentage and absolute count will include metamyelocytes, myelocytes, and promyelocytes. Blood smears from CBCs yielding IG's will be scanned manually for concordance. If this scan disagrees with the automated IG or if promyelocytes are noted, a manual differential will be performed. Immature Gran Absolute 0.02 0.00 - 0.04 x10(3)/[facility] Blood 12/09/2022 5:42 PM EST 12/09/2022 5:53 PM EST Narrative Resulting Agency Comment Spec In Lab Augustin Lou MD HEMATOLOGY ORDERABLE S Performing Organization Address City/[facility]/[place] [address] * (ABNORMAL) Hemogram (12/09/2022 5:42 PM EST) White Blood Cell 5.8 4.0 - 9.5 x10(3)/[facility] LAB[facility] Red Blood Cell 3.39(L) 4.58 - 5.54 x10(6)/[facility] Hemoglobin 9.0(L) 13.7 - 16.5 g/dL [facility] Hematocrit 28.8(L) 40.5 - 48.5 % [facility] Mean Cell Volume 85.0 82.9 - 93.1 fL [facility] Mean Cell Hemoglobin 26.5(L) 27.5 - 32.1 pg [facility] Mean Cell Hemoglobin Concentration 31.3(L) 32.0 - 35.7 g/dL [facility] Platelet 167 145 - 357 x10(3)/[facility] RDW Standard Deviation 61.7(H) 36.0 - 45.0 fL [facility] RDW coefficient of variation 20.3(H) 11.4 - 13.8 % [facility] Mean Platelet Volume 10.2 7.6 - 12.9 fL [facility] NRBC% auto 0.0 % [facility] NRBC Absolute 0.000 0.000 - 0.000 x10(3)/[facility] Blood 12/09/2022 5:42 PM EST 12/09/2022 5:53 PM EST Narrative Resulting Agency Comment Spec In Lab Augustin Lou MD HEMATOLOGY ORDERABLE S [facility] [place] [address] * COLONOSCOPY (12/09/2022 11:22 AM EST) COLONOSCOPY [facility] Endoscopy Procedure Date: 12/09/2022 11:22 AM ? Patient Name: Koko Zamora ? Date of : 1940 ? Age: 82 ? Order #: [id number] ? Instrument Name: ? Procedure: ? Colonoscopy Indications: ? Hematochezia Providers: ? Alan Munoz MD Referring : ?Stu Bass Amell Medicines: ? Propofol per Anesthesia Complications: ? [...] including non-diaz portions. ? Giovani Patricia Ponce, 12/09/2022 12:04:17 PM Number of Addenda: 0 Note Initiated On: 12/09/2022 11:22 AM [employer] 12/09/2022 11:2 2 AM EST Stu Padilla MD GENERAL SURGICAL ORD ERABLES [employer] * Differential, Automated (12/09/2022 12:30 AM EST) Neutrophil % 61.7 % [facility] Neutrophil Absolute 4.49 1.70 - 6.10 x10(3)/[facility] Lymph % 22.9 % [facility] Lymphocytes Abs 1.7 0.9 - 3.2 x10(3)/[facility] Monocyte % 12.5 % [facility] Monocyte Abs 0.9 0.3 - 0.9 x10(3)/[facility] Eos % 1.8 % [facility] Eosinophils Abs 0.1 0.0 - 0.4 x10(3)/[facility] Basophil % 0.7 % [facility] Baso Absolute 0.0 0.0 - 0.1 x10(3)/[facility] Immature Gran % 0.40 % [facility] Comment: Immature granulocytes(IG's)percentage and absolute count will include metamyelocytes, myelocytes, and promyelocytes. Blood smears from CBCs yielding IG's will be scanned manually for concordance. If this scan disagrees with the automated IG or if promyelocytes are noted, a manual differential will be performed. Immature Gran Absolute 0.03 0.00 - 0.04 x10(3)/mcL [facility] Blood 12/09/2022 12:3 0 AM EST 12/09/2022 12:50 AM EST Narrative Resulting Agency Comment Spec In Lab Augustin Lou MD HEMATOLOGY ORDERABLE S Performing Organization Address City/[facility]/ZIP Co de Phone Number [facility] [place] [address] * (ABNORMAL) Hemogram (12/09/2022 12:30 AM EST) White Blood Cell 7.3 4.0 - 9.5 x10(3)/mc L [facility] Red Blood Cell 3.44(L) 4.58 - 5.54 x10(6)/mc L [facility] Hemoglobin 9.2(L) 13.7 - 16.5 g/dL [facility] Hematocrit 29.3(L) 40.5 - 48.5 % [facility] Mean Cell Volume 85.2 82.9 - 93.1 fL [facility] Mean Cell Hemoglobin 26.7(L) 27.5 - 32.1 pg [facility] Mean Cell Hemoglobin Concentration 31.4(L) 32.0 - 35.7 g/dL [facility] Platelet 183 145 - 357 x10(3)/mc L [facility] RDW Standard Deviation 62.1(H) 36.0 - 45.0 fL [facility] RDW coefficient of variation 20.3(H) 11.4 - 13.8 % [facility] Mean Platelet Volume 10.5 7.6 - 12.9 fL [facility] NRBC% auto 0.0 % [facility] NRBC Absolute 0.000 0.000 - 0.000 x10(3)/mc L [facility] Blood 12/09/2022 12:3 0 AM EST 12/09/2022 12:50 AM EST Narrative Resulting Agency Comment Spec In Lab Augustin Lou MD HEMATOLOGY ORDERABLE S [facility] [place] [place] [address] * Phosphorus (12/09/2022 12:30 AM EST) Phosphorus 2.8 2.5 - 4.5 mg/dL [facility] Blood 12/09/2022 12:3 0 AM EST 12/09/2022 12:50 AM EST Narrative Resulting Agency Comment Spec In Lab Stu Padilla MD CHEMISTRY ORDERABLES Performing Organization Address [facility] Co de Phone Number [facility] [place] [address] * Magnesium (12/09/2022 12:30 AM EST) Magnesium 0.80 0.69 - 1.07 mmol/L [facility] Blood 12/09/2022 12:3 0 AM EST 12/09/2022 12:50 AM EST Narrative Resulting Agency Comment Spec In Lab Stu Padilla MD CHEMISTRY ORDERABLES Performing Organization Address [facility] de Phone Number [facility] [place] [address] * (ABNORMAL) Basic Metabolic Panel (non-fasting) (12/09/2022 12:30 AM EST) Glucose 151 65 - 199 mg/dL [facility] Comment:Diabetes: >=200 mg/d L plus symptoms Blood Urea Nitrogen 14 10 - 20 mg/dL [facility] Creatinine 0.88 0.80 - 1.50 mg/dL [facility] Sodium 142 135 - 145 mmol/L [facility] Potassium 3.7 3.5 - 5.0 mmol/L [facility] Comment: Please note: ??Patients with WBC >100,000 may have falsely elevated Potassium levels. ??For accurate Potassium quantification in these patients send serum separator tube (gold top) for subsequent determinations. ??Contact the Clinical Chemistry Laboratory if there are any questions. Chloride 109(H) 98 - 107 mmol/L [facility] Carbon Dioxide 22 22 - 31 mmol/L [facility] Anion Gap 11 5 - 15 mmol/L [facility] Calcium 8.5 8.5 - 10.5 mg/dL [facility] Est Glomerular Filtration Rate 87 >=60 mL/min/1. 73 m?? [facility] Comment: This patient's estimated GFR [...] Padilla MD CHEMISTRY ORDERABLES Performing Organization Address City/[facility]/ZIP Co de Phone Number [facility] [place] [address] * Type and Screen Validity (12/08/2022 5:51 PM EST) T&S only valid at [facility] LABORATORY Comment:This Type and Screen result is only valid at the [facility] Blood 12/08/2022 5:51 PM EST 12/08/2022 5:55 PM EST Narrative Resulting Agency Comment Spec In Lab Augustin Lou MD BLOOD BANK LAB ORDER NICK Performing Organization Address City/[facility]/ZIP Co de Phone Number [facility] [place] [address] * [facility] Recheck Status (12/08/2022 5:51 PM EST) [facility] Type Recheck Completed [facility] Blood 12/08/2022 5:51 PM EST 12/08/2022 5:55 PM EST Narrative Resulting Agency Comment Spec In Lab Augustin Lou MD BLOOD BANK LAB ORDER NICK Performing Organization Address City/[facility]/[place] [address] * Differential, Automated (12/08/2022 5:51 PM EST) Pathologist [facility] Neutrophil % 62.4 % [facility] Neutrophil Absolute 4.12 1.70 - 6.10 x10(3)/[facility] LAB[facility] Lymph % 22.8 % [facility] Lymphocytes Abs 1.5 0.9 - 3.2 x10(3)/[facility] Monocyte % 11.6 % [facility] Monocyte Abs 0.8 0.3 - 0.9 x10(3)/[facility] LAB[facility] Eos % 2.0 % [facility] Eosinophils Abs 0.1 0.0 - 0.4 x10(3)/[facility] Basophil % 0.6 % [facility] Baso Absolute 0.0 0.0 - 0.1 x10(3)/[facility] Immature Gran % 0.60 % [facility] Comment: Immature granulocytes(IG's)percentage and absolute count will include metamyelocytes, myelocytes, and promyelocytes. Blood smears from CBCs yielding IG's will be scanned manually for concordance. If this scan disagrees with the automated IG or if promyelocytes are noted, a manual differential will be performed. Immature Gran Absolute 0.04 0.00 - 0.04 x10(3)/[facility] LAB[facility] Blood 12/08/2022 5:51 PM EST 12/08/2022 5:57 PM EST Narrative Resulting Agency Comment Spec In Lab Augustin Lou MD HEMATOLOGY ORDERABLE S Performing Organization Address City/[facility]/[place] [address] * (ABNORMAL) Hemogram (12/08/2022 5:51 PM EST) White Blood Cell 6.6 4.0 - 9.5 x10(3)/mc L [facility] Red Blood Cell 3.47(L) 4.58 - 5.54 x10(6)/mc L [facility] Hemoglobin 9.4(L) 13.7 - 16.5 g/dL [facility] Hematocrit 29.9(L) 40.5 - 48.5 % [facility] Mean Cell Volume 86.2 82.9 - 93.1 fL [facility] Mean Cell Hemoglobin 27.1(L) 27.5 - 32.1 pg [facility] Mean Cell Hemoglobin Concentration 31.4(L) 32.0 - 35.7 g/dL [facility] Platelet 184 145 - 357 x10(3)/mc L [facility] RDW Standard Deviation 62.3(H) 36.0 - 45.0 fL [facility] RDW coefficient of variation 20.1(H) 11.4 - 13.8 % [facility] Mean Platelet Volume 10.9 7.6 - 12.9 fL [facility] NRBC% auto 0.0 % [facility] NRBC Absolute 0.000 0.000 - 0.000 x10(3)/mc L [facility] Blood 12/08/2022 5:51 PM EST 12/08/2022 5:57 PM EST Narrative Resulting Agency Comment Spec In Lab Augustin Lou MD HEMATOLOGY ORDERABLE S Performing Organization Address City/[facility]/ZIP Co de Phone Number [facility] [place] [address] * Antibody screen (12/08/2022 5:51 PM EST) Ab Screen Interp Negative [facility] Expires at [id number] on: 12/11/2022 [facility] Blood 12/08/2022 5:51 PM EST 12/08/2022 5:55 PM EST Narrative Resulting Agency Comment Spec In Lab Augustin Lou MD BLOOD BANK LAB ORDER NICK Performing Organization Address City/[facility]/ZIP Co de Phone Number [facility] [place] [address] * ABO/Rh Typing (12/08/2022 5:51 PM EST) ABORH Type O Pos [facility] Blood 12/08/2022 5:51 PM EST 12/08/2022 5:55 PM EST Narrative Resulting Agency Comment Spec In Lab Augustin Lou MD BLOOD BANK LAB ORDER NICK Performing Organization Address City/[facility]/ZIP Co de Phone Number [facility] [place] [place] [address] * APTT (12/08/2022 5:51 PM EST) Partial Thromboplastin Time 28 25 - 37 sec [facility] Comment: The PTT is NOT appropriate for heparin monitoring. Use the Anti-Xa level for heparin monitoring (HEP UFH) or LMWH monitoring (HEP LMW). A PTT less than 37 seconds generally indicates adequate hemostasis. Blood 12/08/2022 5:51 PM EST 12/08/2022 5:57 PM EST Narrative Resulting Agency Comment Spec In Lab Stu Padilla MD HEMATOLOGY ORDERABLE S Performing Organization Address [facility] Center/[facility] Co de Phone Number [facility] [place] [address] * (ABNORMAL) Prothrombin Time (12/08/2022 5:51 PM EST) Prothrombin Time 12.6(H) 9.4 - 12.[address] [facility] International Normalization Ratio 1.1 [facility] Comment: An INR <2.0 indicates [...] MD HEMATOLOGY ORDERABLE S Performing Organization Address City/[facility]/ZIP Co de Phone Number [facility] [place] [address] * Hepatic Function Panel (12/08/2022 5:51 PM EST) Protein, Total 6.1 6.1 - 8.0 g/dL [facility] Albumin 3.8 3.2 - 5.2 g/dL [facility] Aspartate Aminotransferase 14 0 - 39 unit/L [facility] Alanine Aminotransferase 20 0 - 55 unit/L [facility] Alkaline Phosphatase 86 40 - 130 unit/L [facility] Bilirubin, Total 1.2 0.2 - 1.3 mg/dL [facility] Bilirubin, Direct 0.2 0.0 - 0.3 mg/dL [facility] Blood 12/08/2022 5:51 PM EST 12/08/2022 5:57 PM EST Narrative Resulting Agency Comment Spec In Lab Stu Padilla MD CHEMISTRY ORDERABLES [facility] [place] [address] * (ABNORMAL) Basic Metabolic Panel (non-fasting) (12/08/2022 5:51 PM EST) Glucose 201(H) 65 - 199 mg/dL [facility] Comment:Diabetes: >=200 mg/d L plus symptoms Blood Urea Nitrogen 16 10 - 20 mg/dL [facility] Creatinine 0.87 0.80 - 1.50 mg/dL [facility] Sodium 138 135 - 145 mmol/L [facility] Potassium 4.0 3.5 - 5.0 mmol/L [facility] Comment: Please note: ??Patients with WBC >100,000 may have falsely elevated Potassium levels. ??For accurate Potassium quantification in these patients send serum separator tube (gold top) for subsequent determinations. ??Contact the Clinical Chemistry Laboratory if there are any questions. Chloride 107 98 - 107 mmol/L [facility] Carbon Dioxide 22 22 - 31 mmol/L [facility] Anion Gap 9 5 - 15 mmol/L [facility] Calcium 8.7 8.5 - 10.5 mg/dL [facility] Est Glomerular Filtration Rate 87 >=60 mL/min/1. 73 m?? 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 documented in this encounter Admitting Diagnoses Diagnosis GI [...] Given 12/10/2022 8:16 AM EST 75 mg heparin (porcine) 50 units/mL in dextrose 5% 500 mL infusion 0-5,000 Units/hr (0-100 mL/hr), [...] UFH Level - Per Protocol, Routine Rate/Dose Change 12/11/2022 7:15 AM EST 950 Units/hr 19 mL/hr New Bag 12/11/2022 5:26 AM EST 1,100 Units/hr 22 mL/hr Rate/Dose Change 12/10/2022 11:13 PM EST 1,100 Units/hr 22 mL/hr metoprolol succinate XL (Toprol-XL) tablet 25 mg [...] 8:20 AM EST 40 mg polyethylene glycoL (GoLYTELY) BOWEL PREP powder for solution JUG (236g diluted to 4000 mL) 2,000 mL 2,000 mL, Oral, ONCE, 1 dose, On Fri12/08/22 at 1930, This package contains polyethylene glycol 236 g to be dissolved in 4000 mL., Routine Given 12/08/2022 8:39 PM EST 2,000 mLs polyethylene glycoL (Miralax) packet 17 g 17 g, Oral, DAILY, First dose on Fri12/11/22 at 0900, Until Discontinued, Routine Given 12/12/2022 8:13 AM EST 17 g Given 12/11/2022 8:20 AM EST 17 g rosuvastatin (Crestor) tablet 40 mg 40 mg, Oral, DAILY, First dose on 12/08/22 at 1845, Until Discontinued, Routine Given 12/12/2022 8:14 AM EST 40 mg Given 12/11/2022 8:20 AM EST 40 mg Given 12/10/2022 8:16 AM EST 40 mg sodium chloride 0.9 % (flush) (BD PosiFlush Normal Saline 0.9) flush 5 mL 5 mL, Intravenous, 2 TIMES DAILY, First dose on 12/08/22 at 2100, Until Discontinued, Routine Given 12/12/2022 [...] Rubia Horne RN)2051 (Given - Provider: Luann Barrientos, DION) 08 (Given - Provider: Corrie Harvey RN) clopidogreL (Plavix) tablet 75 mg 75 mg, Oral, DAILY, First dose on Fri12/09/22 at 1845, Until Discontinued, Routine 0816 (Given - Provider: Rubia Horne RN) 08 (Given - Provider: Rubia Horne RN) 0814 (Given - Provider: Corrie Harvey RN) metoprolol succinate XL (Toprol-XL) tablet 25 mg 25 mg, Oral, DAILY, First dose (after last modification) on Fri12/12/22 at 1030, Until Discontinued, DO NOT CRUSH OR OPEN, Routine 1122 (Given - Provider: Brittany Avila RN) pantoprazole (Protonix) injection 40 mg 40 mg, Intravenous, 2 TIMES DAILY, First dose on Fri12/08/22 at 2100, Until Discontinued 0900 (Given - Provider: Rubia Horne RN)2241 (Given - Provider: Barbara Yuan RN) 0820 (Given - Provider: Rubia Horne RN)2051 (Given - Provider: Luann Barrientos, DION) 0814 (Given - Provider: Corrie Harvey RN) polyethylene [...] Horne RN) 0814 (Given - Provider: Corrie Harvey, DION) sodium chloride 0.9 % (flush) (BD PosiFlush Normal Saline 0.9) flush 5 mL 5 mL, Intravenous, 2 TIMES DAILY, First dose on 12/08/22 at 2100, Until Discontinued, Routine 0816 (Given - Provider: Rubia Horne RN)2241 (Given - Provider: Barbara Yuan RN) 0823 (Given - Provider: Rubia Horne RN)2052 (Given - Provider: Luann Barrientos RN) 0816 (Given - Provider: Corrie Harvey, DION) tamsulosin (Flomax) capsule 0.4 mg 0.4 mg, Oral, DAILY, First dose on 12/08/22 at 1845, Until Discontinued, DO NOT CRUSH OR OPEN, Routine 0816 (Given - Provider: Rubia Horne RN) 0820 (Given - Provider: Rubia Horne RN) 0814 (Given - Provider: Corrie Harvey, DION) Continuous Medication Order 12/10/2022 12/11/2022 12/12/2022 heparin [...] Routine documented in this encounter Care Teams Modeling Analyst Relationship Specialty Start Date End Date Bobby Das MD [address] [place] [address] [place] [phone] PCP - General 10/02/10 documented as of this encounter
--- OUTSIDE RECORDS SUMMARY | 2024-09-17 01:30 | XMS_ITS | Encounter Summary ---
Author Organization [facility] Address [facility] [place] [address] Care Team Providers Care Pharmacy Grad Intern Name Role Phone Bobby Das MD Primary Care Provider [phone] Encounter Details Date Type Department Care Team (Late st Contact Info) Description 10/02/2022 Notes Only Dermatology at [facility] [address] [place] [address] Abdirashid Jiang MD [facility] [place] [address] Social History Tobacco Use Types Packs/Day Years [...] as of this encounter Progress Notes * Abdirashid Jiang MD - 10/02/2022 7:37 PM EST Patient paged bronze chaser line regarding bleeding from wound site. On Eliquis and Plavix. Had tried 30 minutes of constant forceful pressure over wound. Dr. Mendenhall made aware. Dr. Mendenhall called [facility] himself, patient lives nearly 1.5 hours from clinic and unable to drive in the dark, Dr. Mendenhall recommended he be evaluated at [facility]. He made ED aware of his arrival. documented in this encounter Plan of Treatment Not on file documented as of this encounter Visit Diagnoses Not on filedocumented in this encounter Care Teams Pharmacy Grad Intern Relationship Specialty Start Date End Date Bobby Das MD [address] [place] [address] [place] [address] PCP - General 10/02/10 documented as of this encounter
--- OUTSIDE RECORDS SUMMARY | 2024-09-17 01:31 | XMS_ITS | Encounter Summary ---
Author Organization [facility] Address [facility] [place] [address] Care Team Providers Care Senior Policy Analyst Name Role Phone Bobby Das MD Primary Care Provider [phone] Encounter Details Date Type Department Care Team (Late st Contact Info) Description 06/24/2022 Telephone [place] [address] Alan August MD [facility] [place] [address] Social History Tobacco Use Types Packs/Day Years Used Date Smoking Tobacco: Former Cigarettes 0.5 50 Smokeless Tobacco: Never Alcohol Use Standard Drinks/Week Comments Yes 44 (1 standard drink = 0.6 oz pu re alcohol) Sex and Gender Information Value Date Recorded Sex Assigned at Not on file Gender Identity Not on file Sexual Orientation Not on file documented as of this encounter Miscellaneous Notes * Telephone Encounter - Alan August MD - 06/24/2022 10:36 AM EDT See my phone encounter yesterday for additional background data. I was contacted again today by [facility] who was requesting here and back endoscopic evaluation. The provider reports that Anesthesia doesn't feel comfortable doing procedures there, they have no attending but only CRNAs. By report, he was having some dark stools with straining, and then BRBPR started following his episodes of straining. Last colonoscopy was 5 years ago, and was reportedly normal including no polyps and no diverticulosis. This was done at [facility]. HgB 8.6 today. There has not been any further bleeding thus far. He needs to stay on plavix d/t DESand needs DOAC d/t leg thrombosis and AF [...] filedocumented in this encounter Care Teams Senior Policy Analyst Relationship Specialty Start Date End Date Bobby Das MD [address] [place] [address] [place] [phone] PCP - General 10/02/10 documented as of this encounter
--- OUTSIDE RECORDS SUMMARY | 2024-09-17 01:31 | XMS_ITS | Encounter Summary ---
Author Organization [facility] Address [facility] [place] [address] Care Team Providers Care Press Maintainer Name Role Phone Bobby Das MD Primary Care Provider [phone] Reason for Referral * Consultation (Routine) - Closed Specialty Diagnoses / Procedures Referred By Colby quezada Referred To Contact Dermatology Diagnoses Basal cell carcinoma (BCC) of right forehead Loretta Cohen MD [facility] [address] [place] [address] Jace Lynn MD [facility] [address] [place] [address] Referral ID Status Reason Start Date Expiration Date V isits Requested Visits Authorized [id number] Closed Consult, Test & Treat 06/17/2022 06/17/2023 1 1 Encounter Details Date Type Department Care Team (Late st Contact Info) Description 06/17/2022 Orders Only Dermatology at [facility] [address] [place] [address] Loretta Cohen MD [facility] [address] [place] [address] Basal cell carcinoma (BCC) of right forehead Social History Tobacco Use Types Packs/Day Years [...] Dermatology Outpatient Referral Routine Basal cell carcinoma (BCC) of right forehead Ordered: 06/17/2022 documented as of this encounter Visit Diagnoses Diagnosis Basal cell carcinoma (BCC) of right forehead documented in this encounter Care Teams Press Maintainer Relationship Specialty Start Date End Date Bobby Das MD [address] [place] [address] [place] [phone] PCP - General 10/02/10 documented as of this encounter
--- OUTSIDE RECORDS SUMMARY | 2024-09-17 01:31 | XMS_ITS | Encounter Summary ---
Author Organization [facility] [place] [address] Care Team Providers Care Fire Support Man Name Role Phone Bobby Das MD Primary Care Provider [phone] Encounter Details Date Type Department Care Team (Late st Contact Info) Description 06/19/2022 Telephone Cardiology at [address] [phone] Kourtney Jimenez, RN Social History Tobacco Use Types [...] encounter Miscellaneous Notes * Telephone Encounter - Kourtney Jimenez, DION - 06/19/2022 11:19 AM EDT Voice message from Mr Zamora: Requesting a referral to Cardiac Rehab [facility] Forward to Dr Reid documented in this encounter Plan of Treatment Not on file documented as of this encounter Visit Diagnoses Not on filedocumented in this encounter Care Teams Fire Support Man Relationship Specialty Start Date End Date Bobby Das MD [address] [place] [address] [place] [phone] PCP - General 10/02/10 documented as of this encounter
--- OUTSIDE RECORDS SUMMARY | 2024-09-17 01:31 | XMS_ITS | Encounter Summary ---
Author Organization [facility] [place] [address] Care Team Providers Care Computer Software Engineer Name Role Phone Bobby Das MD Primary Care Provider Encounter Details Date Type Department Care Team (Late st Contact Info) Description 06/23/2022 Telephone [place] [address] Alan August MD [facility] DR [place] [address] Social History Tobacco Use Types Packs/Day Years [...] included. DIVISION OF GASTROENTEROLOGY & HEPATOLOGY [facility]SF[facility] [place] CALL Name: Koko Zamora Date: 06/23/2022 Time: 2:27 AM Referring Location: [facility] Referring Provider: Shahram Urena DC [...] can be admitted, they repeat an EGD andcontinue PPI in the interim. The provider was [...] on filedocumented in this encounter Care Teams Computer Software Engineer Relationship Specialty Start Date End Date Bobby Das MD [address] [place] [address] [place] [address] PCP - General 10/02/10 documented as of this encounter
--- OUTSIDE RECORDS SUMMARY | 2024-09-17 01:31 | XMS_ITS | Encounter Summary ---
Author Organization [facility] Address [facility] [place] [address] Care Team Providers Care Printing Manager Name Role Phone Bobby Das MD Primary Care Provider [phone] Encounter Details Date Type Department Care Team (Late st Contact Info) Description 06/25/2022 11:30 AM EDT - 06/25/2022 12:30 PM EDT [place] [address] Giovani Ponce MD [facility] [place] [address] EGD, UPPER GI ENDOSCOPY (WRVU 2.09) Social History Tobacco Use Types Packs/Day Years [...] EDT documented in this encounter Discharge Instructions * Discharge Instructions* Juice Alvarado RN - 06/25/2022 12:06 PM EDT Upper GI Endoscopy: What to Expect at Home Your Recovery You will be able to go home after your doctor or nurse checks to make sure you are not having any problems. You may have to stay overnight if you had treatment during the test. You may have a sore throat fora day or two after the test. This [...] the day after the procedure, use an iiga-mrt-qmetuka spray to numb your throat. Sucking on [...] occurs, please contact your Doctor. Please call [phone] before 8pm Mon-Fri with problems, questions or concerns. If you call after 8pm or on weekends, call the Hospital at [phone] and ask to speak to the Cementing Bulk Material Operator fish conservationist and the motor coach operator will contact that person for you. When should you call for help? Call [phone] anytime you think you may need emergency [...] After Visit Summary and more online at [email or web address] If you would like to provide feedback about your hospital experience, please call the Office of Patient and Family Relations at . If you have received this After Visit Summary in error, please immediately return it in person to the department, or notify the [facility] Privacy Office by calling toll free at between the hours of 8AM and 5PM to arrange for our retrieval of the documents at no cost to you. Content Version: 12.2 ?? 4988-2771 [employer]. Care instructions adapted under license by [facility]. If you have questions about a medical condition or this instruction, always ask your healthcare professional. [employer] disclaims any warranty or liability for your [...] occurs, please contact your Doctor. Please call [phone] before 8pm Mon-Fri with problems, questions or concerns. If you call after 8pm or on weekends, call the Hospital at [phone] and ask to speak to the Cementing Bulk Material Operator fish conservationist and the motor coach operator will contact that person for you. When should you call for help? Call [phone] anytime you think you may need emergency [...] After Visit Summary and more online at [email or web address] If you would like to provide feedback about your hospital experience, please call the Office of Patient and Family Relations at . If you have received this After Visit Summary in error, please immediately return it in person to the department, or notify the [facility] Privacy Office by calling toll free at between the hours of 8AM and 5PM to arrange for our retrieval of the documents at no cost to you. Content Version: 12.2 ?? 6411-5640 [employer]. Care instructions adapted under license by [facility]. If you have questions about a medical condition or this instruction, always ask your healthcare professional. [employer] disclaims any warranty or liability for your use of this information. documented in this encounter Medications at Time of Discharge Medication Sig Dispensed Refills Start Date End Date fluticasone propionate (FLONASE) 50 mcg/actuation [place], [...] mouth daily. 90 tablet 3 06/13/2022 12/12/2022 dapagliflozin (Farxiga) 5 mg Tablet Take 1 tablet by mouth daily. 90 tablet 3 06/13/2022 09/05/2022 digoxin (Lanoxin) 125 mcg (0.125 mg) Tablet Take 1 tablet by mouth daily. 90 tablet 3 06/13/2022 09/05/2022 acetaminophen (Tylenol) 325 mg Tablet Take 2 tablets by mouth every 6 hours as needed for Pain. 30 tablet 1 05/21/2022 11/05/2023 clopidogreL (Plavix) 75 mg Tablet Take 1 tablet by mouth daily. 90 tablet 3 05/22/2022 05/30/2023 metoprolol succinate XL (Toprol-XL) 50 mg Tablet Sustained Release 24 hr Take 1 tablet by mouth daily. 30 tablet 12 05/21/2022 11/05/2023 pantoprazole EC (Protonix) 40 mg Tablet, Delayed Release (E.C.) Take 1 tablet by mouth daily. 90 tablet 3 05/22/2022 09/05/2022 ascorbic acid, vitamin C, (VITAMIN C) 1,000 mg Tablet Take 1,000 mg by mouth daily. 09/04/2020 11/12/2023 sildenafiL (VIAGRA) 100 mg Tablet Take 100 mg by mouth as needed for Erectile Dysfunction. 11/12/2023 calcium citrate (CALCITRATE) 200 mg (950 mg) Tablet Take 3 tablets by mouth daily. 600mg total 11/12/2023 documented as of this encounter H&P Notes * Isi Celaya MD - 06/25/2022 10:55 AM [...] ischemia I99.8 ??? Coronary artery disease involving [place] coronary artery of [place] heart without angina pectoris I25.10 ??? HFrEF [...] Procedure Name Priority Date/Time Associated Diagnosis Comments Small Bowel Endoscopy, Past 2Nd Duod (99829) 06/25/2022 11:01 AM EDT melena +./- Colonoscopy, Flexible W Control Bleeding, Any Method (36711) 06/25/2022 11:01 AM EDT melena +./- Upper GI Endoscopy, Diagnostic (95715) 06/25/2022 11:01 AM EDT melena +./- UPPER GI ENDOSCOPY Routine 06/25/2022 10 :33 AM EDT COLONOSCOPY Routine 06/25/2022 10:33 AM EDT documented in this encounter Results * UPPER GI ENDOSCOPY (06/25/2022 10:33 AM EDT) [facility] UPPER GI ENDOSCOPY [facility] Endoscopy ___ Procedure Date: 06/25/2022 10:33 AM ? Patient Name: Koko Zamora ? Date of : 1940 ? Age: 81 ? Order #: [id number] ? Instrument Name: [id number]- [id number]- [id number] ? ___ Procedure: ? Upper GI endoscopy Indications: ? Recent gastrointestinal bleeding Providers: ? Giovani Ponce, Isi Celaya, ? Brissa Vee RN, Darrell ? Confalone Referring MD: ?Sam Roberts Medicines: ? Propofol per Anesthesia Complications: ? No immediate complications. ___ Procedure: ? Pre-Anesthesia Assessment: ? - Prior [...] cancer, and adverse medication ? reactions. The Endoscope was ? introduced through the mouth, and ? advanced to the second part of ? duodenum The Colonoscope was ? introduced through the mouth, and ? advanced to the proximal jejunum ? The patient tolerated the procedure ? [...] A single non-bleeding ? Angioectasia in the duodenum. ? Treated with argon beam coagulation. ? - Four non-bleeding angioectasias ? in the proximal jejunum. Treated ? with argon beam coagulation. ? - No specimens collected. Recommendation: ?- Perform a colonoscopy. ? Attending Participation: ? I was present and participated during the entire ? procedure, including non-diaz portions. ? Giovani Ponce, 06/25/2022 11:30:54 AM Number of Addenda: 0 Note Initiated On: 06/25/2022 10:33 AM PROVATION 06/25/2022 10:3 3 AM EDT Sam Roberts MD GENERAL SURG ICAL ORDERABLES PROVATION * COLONOSCOPY (06/25/2022 10:33 AM EDT) COLONOSCOPY [facility] Endoscopy ___ Procedure Date: 06/25/2022 10:33 AM ? Patient Name: Koko Zamora ? Date of : 1940 ? Age: 81 ? Order #: [id number] ? Instrument Name: EC-760P- [id number] ? ___ Procedure: ? Colonoscopy Indications: ? Gastrointestinal bleeding Providers: ? Isi Munoz, ? Brissa Vee RN, Darrell ? Confalone Referring MD: ?Christopher Stranathan Medicines: ? Propofol per Anesthesia Complications: ? No immediate complications. ___ Procedure: ? Pre-Anesthesia Assessment: ? - Prior [...] digital rectal exam ? was performed. The Colonoscope was ? inserted in the anus and under ? direct visualization, advanced to ? the terminal ileum. Careful ? inspection was made as the ? colonoscope was withdrawn. The ? patient tolerated the procedure ? well. The quality of the bowel ? preparation was good. ? Findings: ? [...] ?- The examined portion of the ileum ? was normal. ? - Two small polyps in the sigmoid ? colon and in the transverse colon. ? Resection not attempted in the ? context of recent GI bleeding and ? antiplatelet use. ? - A single bleeding colonic ? angioectasiae. Treated with argon ? beam coagulation. Clip was placed. ? - No specimens collected. Recommendation: ?- Return patient to referring ? hospital for ongoing care. ? - Resume previous diet. ? - Follow up outpatient GI to ? discuss risks/benefits of elective ? repeat colonoscopy for polypectomy ? Procedure Code(s): ? --- Professional --- ? 15499, Colonoscopy, flexible; with ? control of bleeding, any method Diagnosis Code(s): ? --- Professional --- ? K92.2, Gastrointestinal hemorrhage, ? unspecified ? 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 D12.3, Benign neoplasm of ? transverse colon (hepatic flexure ? or splenic flexure) ? D12.5, Benign neoplasm of sigmoid ? colon ? --- Technical --- ? K92.2, Gastrointestinal hemorrhage, ? unspecified ? 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 D12.3, Benign neoplasm of ? transverse colon (hepatic flexure ? or splenic flexure) ? D12.5, Benign neoplasm of sigmoid ? colon CPT copyright 2020 [employer]. All rights reserved. The codes documented in this report are preliminary and upon buttoner review may be revised to meet current compliance requirements. Attending Participation: ? I personally performed the entire procedure. ? Giovani Ponce, 06/25/2022 12:03:30 PM Number of Addenda: 0 Note Initiated On: 06/25/2022 10:33 AM PROVATION 06/25/2022 10:3 3 AM EDT Sam Roberts MD GENERAL SURG ICAL ORDERABLES PROVATION documented in this encounter Visit Diagnoses Not on filedocumented in this encounter Administered Medications Inactive Administered Medications - up to 3 most recent administrations Medication Order MAR Action Action Date Dose Rate Site lactated ringers infusion 100 mL/hr, Intravenous, CONTINUOUS, Starting on Fri06/25/22 at 1100, Until Fri06/25/22 at 1258, Endoscopy (Day of Procedure) New Bag 06/25/2022 11:00 AM EDT 100 mL/hr 100 mL/hr documented in this encounter Active and Recently Administered Medications Times are shown in EDT. Continuous Medication Order 06/23/2022 06/24/2022 06/25/2022 lactated ringers infusion (CANCELED) 100 mL/hr, Intravenous, CONTINUOUS, Starting on Fri06/25/22 at 1100, Until Fri06/25/22 at 1258, Endoscopy (Day of Procedure) 1100 (New Bag - Prov ider: Mame Peterson RN) documented in this encounter Care Teams Printing Manager Relationship Specialty Start Date End Date Bobby Das MD [address] [place] [address] [place] [address] PCP - General 10/02/10 documented as of this encounter
--- OUTSIDE RECORDS SUMMARY | 2024-09-17 01:31 | XMS_ITS | Encounter Summary ---
Author Organization [facility] Address [facility] [place] [address] Care Team Providers Care Basketball Commentator Name Role Phone Bobby Das MD Primary Care Provider [phone] Encounter Details Date Type Department Care Team (Late st Contact Info) Description 06/13/2022 8:00 AM EDT Office Visit [place] [address] Fito Summers MD [facility] [place] [place] [address] Limb ischemia Social History Tobacco Use Types Packs/Day Years [...] Blood Pressure 90/59 06/13/2022 8:09 AM EDT notified Pulse 96 06/13/2022 8:09 AM EDT Temperature - - Respiratory Rate - - Oxygen Saturation 99% 06/13/2022 8:09 AM EDT Inhaled Oxygen Concentration - - Weight 75.8 kg (167 lb) 06/13/2022 8:09 AM EDT p atient reported Height 172.7 cm (5' 8) 06/13/2022 8:09 AM EDT p atient reported Body Mass Index 25.39 06/13/2022 8:09 AM EDT documented in this encounter Progress Notes * Fito Summers MD - 06/13/2022 8:00 AM [...] revealed angiodysplasia which was cauterized. His aspirin wasstopped. His plavix and rivaroxaban were maintained. He has done well since. He has no claudicationor rest pain. He has some LLE swelling. [...] s/p repair Overview Note: Surgery done at [facility] in 2000 ??? Hypertriglyceridemia Overview Note: ??? Adhesive capsulitis of L shoulder ??? Alcohol use Overview Note: Home Medications: Antiplatelet: Plavix Anticoagulant: Rivaroxaban Statin: Crestor Outpatient Medications Marked as Taking for the 06/13/22 encounter (Office Visit) with Damion Summers MD Medication Sig Dispense Refill ??? acetaminophen (Tylenol) 325 mg Tablet Take 2 tablets by mouth every 6 hours as needed for Pain.30 tablet 1 ??? clopidogreL (Plavix) 75 mg Tablet Take 1 tablet by mouth daily. 90 tablet 3 ??? metoprolol succinate XL (Toprol-XL) 50 mg Tablet Sustained Release 24 hr Take 1 tablet by mouthdaily. 30 tablet 12 ??? dapagliflozin (Farxiga) 5 mg Tablet Take 1 tablet by mouth daily. 30 tablet 0 ??? pantoprazole EC (Protonix) 40 mg Tablet, Delayed Release (E.C.) Take 1 tablet by mouth daily. 90 tablet 3 ??? rivaroxaban (Xarelto) 20 mg Tablet [...] pulse. His wounds are nearly healed. We areremoving his fasciotomy windy today and will plan on him returning in 2 weeks for a wound check. If healed, he can then follow up annually with ABIs. He will be seeing cardiology after this visit. He underwent coronary stenting recently and is on Plavix / Rivaroxaban. He had his aspirin stopped due to a GI bleed in the past couple of weeks, where an EGD revealed angiodysplasia and two area were cauterized. [...] with ABIs. Fito Summers MD Vascular Surgery [facility] * Emily Power CMA - 06/13/2022 8:00 AM EDT Handwashing performed, gloves on.As instructed by windy removed on LLE medial and lateral aspect, cleansed after staple remover, steri strips applied. Gloves off, handwashing performed. documented in this encounter Plan of Treatment Not on file documented as of this encounter Visit Diagnoses Diagnosis Limb ischemia Unspecified circulatory system disorder documented in this encounter Care Teams Basketball Commentator Relationship Specialty Start Date End Date Bobby Das MD [address] [place] [address] [place] [id number] PCP - General 10/02/10 documented as of this encounter
--- OUTSIDE RECORDS SUMMARY | 2024-09-17 01:31 | XMS_ITS | Encounter Summary ---
Author Organization [facility] Address [facility] [place] [address] Care Team Providers Care Seat Cover Installer Name Role Phone Bobby Das MD Primary Care Provider [phone] Encounter Details Date Type Department Care Team (Latest Contact Info) Description 06/25/2022 10:32 AM EDT - 06/25/2022 12:59 PM EDT Hospital En[place] [address] Giovani Ponce MD [facility] [place] [address] Discharge Disposition: Another HCF/Not Defined Social History Tobacco Use Types Packs/Day Years [...] the day after the procedure, use an cubx-kmu-vzgdezg spray to numb your throat. Sucking on [...] occurs, please contact your Doctor. Please call [phone] before 8pm Mon-Fri with problems, questions or concerns. If you call after 8pm or on weekends, call the Hospital at [phone] and ask to speak to the [employer] correctional sergeant and the bridge crane operator will contact that person for you. When should you call for help? Call [phone] anytime you think you may need emergency [...] problems. Where can you learn more? [facility] View your After Visit Summary and more online at [email or web address] If you would like to provide feedback about your hospital experience, please call the Office of Patient and Family Relations at . If you have received this After Visit Summary in error, please immediately return it in person to the department, or notify the [facility] Privacy Office by calling toll free at between the hours of 8AM and 5PM to arrange for our retrieval of the documents at no cost to you. Content Version: 12.2 ?? 4066-6615 [employer]. Care instructions adapted under license by [facility]. If you have questions about a medical condition or this instruction, always ask your healthcare professional. [employer] disclaims any warranty or liability for your [...] occurs, please contact your Doctor. Please call [phone] before 8pm Mon-Fri with problems, questions or concerns. If you call after 8pm or on weekends, call the Hospital at [phone] and ask to speak to the [employer] correctional sergeant and the bridge crane operator will contact that person for you. When should you call for help? Call [phone] anytime you think you may need emergency [...] any problems. Where can you learn more? [facility]- View your After Visit Summary and more online at [email or web address] If you would like to provide feedback about your hospital experience, please call the Office of Patient and Family Relations at . If you have received this After Visit Summary in error, please immediately return it in person to the department, or notify the [facility] Privacy Office by calling toll free at between the hours of 8AM and 5PM to arrange for our retrieval of the documents at no cost to you. Content Version: 12.2 ?? 8683-5647 [employer]. Care instructions adapted under license by [facility]. If you have questions about a medical condition or this instruction, always ask your healthcare professional. [employer] disclaims any warranty or liability for your use of this information. documented in this encounter Medications at Time of Discharge Medication Sig Dispensed Refills Start Date End Date fluticasone propionate (FLONASE) 50 mcg/actuation [place], Suspension 1 spray by Each Nare route [...] ischemia I99.8 ??? Coronary artery disease involving [place] coronary artery of [place] heart without angina pectoris I25.10 ??? HFrEF [...] Comments Small Bowel Endoscopy, Past 2Nd Duod (91381) 06/25/2022 11:01 AM EDT melena +./- Colonoscopy, Flexible W Control Bleeding, Any Method (96420) 06/25/2022 11:01 AM EDT melena +./- Upper GI Endoscopy, Diagnostic (54783) 06/25/2022 11:01 AM EDT melena +./- UPPER GI ENDOSCOPY Routine 06/25/2022 10 :33 AM EDT COLONOSCOPY Routine 06/25/2022 10:33 AM EDT documented in this encounter Results * UPPER GI ENDOSCOPY (06/25/2022 10:33 AM EDT) UPPER GI ENDOSCOPY [facility] ___ Procedure Date: 06/25/2022 10:33 AM ? Patient Name: Koko Zamora ? Date of : 1940 ? Age: 81 ? Order #: [id number] ? Instrument Name: [id number]- [id number]- [id number] ? ___ Procedure: ? Upper GI endoscopy [...] * COLONOSCOPY (06/25/2022 10:33 AM EDT) COLONOSCOPY [facility] ___ Procedure Date: 06/25/2022 10:33 AM ? Patient Name: Koko Zamora ? Date of : 1940 ? Age: 81 ? Order #: [id number] ? Instrument Name: EC-760P- [id number] ? ___ Procedure: ? Colonoscopy Indications: ? [...] Procedure Code(s): ? --- Professional --- ? 57138, Colonoscopy, flexible; with ? control of bleeding, [...] this report are preliminary and upon medical biller coder review may be revised to meet [...] 1100 (New Bag - Prov ider: Mame Peterson, DION) documented in this encounter Care Teams Seat Cover Installer Relationship Specialty Start Date End Date Bobby Das MD [address] [place] [address] [place] [address] PCP - General 10/02/10 documented as of this encounter
--- OUTSIDE RECORDS SUMMARY | 2024-09-17 01:31 | XMS_ITS | Encounter Summary ---
Author Organization [facility] Address [facility] [place] [address] Care Team Providers Care Dry Plasterer Name Role Phone Bobby Das MD Primary Care Provider [phone] Reason for Visit * Reason Comments Skin Lesion * Consultation (Routine) - Closed Specialty Diagnoses / Procedures Referred By Colby quezada Referred To Contact Dermatology Diagnoses Lesion on right eye = hx of skin cancer Procedures Lesion on right eye = hx of skin cancer Bobby Das MD [address] [place] [id number] [facility] Dermatology [address] [place] [address] Referral ID Status Reason Start Date Expiration Date Visits Re quested Visits Authorized [id number] Closed 04/22/2022 04/22/2023 1 1 Encounter Details Date Type Department Care Team (Late st Contact Info) Description 06/10/2022 11:00 AM EDT Office Visit Dermatology at [facility] [address] [place] [address] Loretta Cohen MD [facility] DR JENNY [place] [address] Neoplasm of unspecified behavior of bone, soft tissue, and skin Social History Tobacco Use Types Packs/Day Years [...] of this encounter Progress Notes * Loretta Cohen MD - 06/10/2022 11:00 AM [...] nevi N SCC N BCC 2015: right zoroastrian, BCC s/p mohs 09/2018: right eyebrow, BCC [...] Patient is referred to the clinic at [facility] for the following: - Lesion on the right eyebrow that has been present since last Mohs surgery in 2017. The area can be pruritic. It started to become irritating 2 months [...] to the level of the dermis and s ubmitted to Pathology. Hemostasis obtained (AlCl/electrocautery). There were no complications; patient tolerated the procedure well. Wound dressed. Post- procedure expectations, wound care and activity restrictions reviewed. - Follow-up based on pathology results. Figure 1 Photo(s) taken and charted with patient's verbal consent. Other: ??? N/A RTC: Pending pathology []Note routed to laboratory secretary []Recall placed in scheduling system []Appointment scheduled at checkout Scribe attestation: Sidney Higgins and Loretta Gomez CMA performed the documentation for thisencounter in the presence of and acting as a scribe for Noel Burgos MD. I performed the above scribed service and agree with the accuracy of the documentation in this encounter. Reviewed and signed by: Noel Burgos MD Dermatology [facility] * Loretta Cohen MD - 06/10/2022 11:00 AM EDT DERMATOLOGY TELEPHONE NOTE Koko Zamora 06/17/2022 [id number] Reason for call: Discuss biopsy results I [...] Procedure Name Priority Date/Time Associated Diagnosis Comments SPECIMEN TO PATHOLOGY Routine 06/10/2022 1:20 PM EDT Neoplasm of unspecified behavior of bone, soft tissue, and skin SURGICAL PATHOLOGY REPORT Routine 06/10/2022 11:43 AM EDT documented in this encounter Results * Specimen to Pathology (06/10/2022 1:20 PM EDT) AP Specimen 06/10/2022 1:20 PM EDT 06/10/2022 1:20 PM EDT Narrative [facility] - 06/10/2022 1:20 PM EDT Specimen requisition ordered. ??Separate Pathology report to follow Loretta Cohen MD PATHOLOGY/CYTOLOGY O RADHA [facility] [place] [address] * Surgical Pathology Report (06/10/2022 11:43 AM EDT) Final Diagnosis [id number] ? Location: [facility] The signing pathologist has (i) examined the relevant preparation(s) for the specimen(s) and (ii) rendered or confirmed the diagnosis(es). . ?Surgical Pathology DIAGNOSIS Right lateral eyebrow, skin shave biopsy: - ??Basal cell carcinoma, nodular pattern, transected at the peripheral and deep specimen edges Electronically signed by: ?Delroy CARCAMO, PhD, Ian Verified: ??06/12/2022 14:33 ??Dermatopatholog ist Performed at: ??-[facility], [place], [place] SPECIMEN(S) SUBMITTED A - right lateral eyebrow, skin shave biopsy (1) CLINICAL INFORMATION Pearly papule in close approximation to scar. Rule out recurrent BCC SPECIMEN PROCESSING A - Labeled/Fixative: Patient demographics, formalin. Quantity/Size: ??Single, 0.6 x 0.3 cm. Tissue Description: Non-oriented de leon-white skin shave and attached fragment of clotted blood. Sections/Processi ng: The skin shave is inked and bisected. The attached blood clot is left intact. The specimen is entirely submitted in 1 cassette labeled A1. ??shb 06/12/2022 2:33 PM EDT [facility] SPECIMEN FROM SKIN / Unknown 06/10/2022 11:43 AM EDT 06/10/2022 11:43 AM EDT Loretta Cohne MD PATHOLOGY/CYTOLOGY O RDERABLES [facility] [place] [id number] documented in this encounter Visit Diagnoses Diagnosis Neoplasm of unspecified behavior of bone, soft tissue, and skin documented in this encounter Care Teams Dry Plasterer Relationship Specialty Start Date End Date Bobby Das MD [address] [place] [address] [place] [phone] PCP - General 10/02/10 documented as of this encounter
--- OUTSIDE RECORDS SUMMARY | 2024-09-17 01:31 | XMS_ITS | Encounter Summary ---
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 Alan Reid MD [facility] [place] [address] Cardiac Rehab, [address] [place] [address] Referral ID Status Reason Start Date Expiration Date V isits Requested Visits Authorized [id number] Closed Consult, Test & Treat 06/20/2022 12/17/2022 36 36 Encounter Details Date Type Department Care Team (Late st Contact Info) Description 06/20/2022 Orders Only [facility]iology [place] [address] [place] [address] Alan Reid MD [facility] [place] [address] HFrEF (heart failure with reduced ejection fraction); 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 Social History Tobacco [...] Associated Diagnoses Orde r Schedule Referral to Cardiac Rehab Outpatient Referral Routine HFrEF (heart failure with reduced ejection fraction) 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
--- OUTSIDE RECORDS SUMMARY | 2024-09-17 01:31 | XMS_ITS | Encounter Summary ---
Author Organization [facility] [place] [address] Care Team Providers Care Family Support Coordinator Name Role Phone Bobby Das MD Primary Care Provider [phone] Encounter Details Date Type Department Care Team (Late st Contact Info) Description 06/13/2022 7:30 AM EDT [place] [address] Edson [place] Limb ischemia Social History Tobacco Use Types [...] Procedure Name Priority Date/Time Associated Diagnosis Comments JOSSELYN, LEGS, MULTIPLE LEVELS Routine 06/13/2022 7:13 AM EDT Limb ischemia documented in this encounter Results * JOSSELYN, legs, multiple levels (06/13/2022 7:13 AM EDT) VB Text Report Department: Vascular Surgery Lab Patient: [id number] (ETTA B[facility]) CPT: 01364 Referring Physician: FITO SUMMERS ?? Phone: Indications: s/p L JAVA LEAD ARCHITECT endart. Diabetes mellitus: no Findings: Right ?Pressure [...] Interpretation: RIGHT: No significant lower extremity arterial occlusive disease identifiable at rest. Normal ankle/brachial pressure ratios and ankle Doppler waveforms. LEFT: No significant lower extremity arterial occlusive disease identifiable at rest. Normal ankle/brachial pressure ratios and ankle Doppler waveforms. Comparison: ??No previous study in our vascular lab database for comparison. Electronically Signed by: FITO SUMMERS on 2022-06-13 08:00:25 AM [facility] VB Text Report End of Report [facility] 06/13/2022 7:13 AM EDT Fito Summers MD VASCULAR ORDERABLES [facility] documented in this encounter Visit Diagnoses Diagnosis Limb ischemia Unspecified circulatory system disorder documented in this encounter Care Teams Family Support Coordinator Relationship Specialty Start Date End Date Bobby Das MD [address] [place] [address] [place] [phone] PCP - General 10/02/10 documented as of this encounter
--- OUTSIDE RECORDS SUMMARY | 2024-09-17 01:31 | XMS_ITS | Encounter Summary ---
Author Organization [facility] [place] [address] Care Team Providers Care Medical Esthetician Name Role Phone Bobby Das MD Primary Care Provider [phone] Reason for Visit * Reason Comments Dizziness * Auth/Cert Specialty Diagnoses / Procedures Referred By Contac t Referred To Contact Diagnoses GIB (gastrointestinal bleeding) [place] [address] [facility] Referral ID Status Reason Start Date Expiration Date Visits Re quested Visits Authorized [id number] 1 1 Encounter Details Date Type Department Care Team (Latest Contact Info) Description 05/31/2022 10:11 AM EDT - 06/02/2022 3:02 PM EDT Hospital Encounter Inter[place] [address] Dominique Hinds MD [facility] [place] [address] [place] [address] [place] [address] [place] [address] GIB (gastrointestinal bleeding) (Primary Dx) Discharge Disposition: Home Social History Tobacco Use [...] 12:19 PM EDT Pulse 139 06/02/2022 12:19 PM EDT with standing, notified Arpita Will MD Temperature 37.1 ??C (98.8 ??F) 06/02/2022 7 :14 AM EDT Respiratory Rate 25 06/02/2022 12:1 9 PM EDT Oxygen Saturation 99% 06/02/2022 12: 19 PM EDT Inhaled Oxygen Concentration - - Weight 77.1 kg (170 lb) 05/31/2022 10:1 8 AM EDT Height 172.7 cm (5' 8) 05/31/2022 10:1 8 AM EDT Body Mass Index 25.85 05/31/2022 10:18 AM EDT documented in this encounter Discharge Summaries * Arpita Valle MD - 06/02/2022 12:48 PM EDT [facility] Medicine - Discharge Summary Patient Name: Koko Zamora Patient Age: 81 y.o. Birthdate: 1940 Admit date: 05/31/2022 Discharge date and time: 06/02/2022 Attending Physician: John Jolley MD ID: Koko Zamora is a 81 y.o. male w/ PMH of mitral valve repair in 2000, prediabetes, tobaccouse, alcohol use, prior GIB, recent hospitalization from 05/15 - 05/21 with acute limb ischemia LLE, where he had left common femoral transverse arteriotomy and primary repair, thromboembolectomy of theSFA, profunda and common femoral artery with 4 compartment fasciotomies. His course was complicatedby new onset afib w/ RVR, and HFrEF [...] (consider transitioning to apixaban for lower bleeding risk pending insurance approval as an outpatient) #Lab checks [...] - 05/21 with acute limb ischemia LLE, wherehe had left common femoral transverse arteriotomy and [...] was found to be in Afib with RVRwith rates in the low 100s. Hypotension with [...] lightheadedness and dizziness; found to have acute blood loss anemia in the setting of triple therapy from recent hospitalization for left lower extremity arterial clot, A. fib and ischemic cardiomyopathy. In the emergency room hemoglobin was 6.9, he was transfused 1 unit of packed red blood cells. 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 fib. Just prior to this admission his Zio patch returned showing permanent A. fib as well. In that setting he is extremely high risk to beoff of his antiplatelets and anticoagulation. Risk-benefit conversations [...] valsartan 40 mg Tab Commonly known as: Grecia Updated Allergies/ADRs: Allergies Allergen Reactions ??? Aspirin Other (See Comments) GI bleed Patient Instructions Patient Instructions on Discharge to Home Why you were hospitalized - You were dizzy and lightheaded and found to have a bleed coming from you GI tract. You had an EGD where they were able to cauterize the area and stop the bleeding. Becauseyou just had stents put into your heart, its really important to stay on the Plavix, but we spoke with cardiology agreed it's ok to stop the aspirin. You also will be continued on your blood thinner s amrita you recently had that clot in your leg. Because it's hard to switch these medicine's with insurance, we will continue with the Xeralto and you should discuss potentially switching to a differentblood thinner with the repairer maintenance building outpatient. Call your doctor or seek medical attention if you develop the following - chest pain, shortness of breath, feeling dizzy upon standing, passing out, diarrhea, constipation lasting longer than 2 days,fevers (temperature over 100.3), chills, abdominal pain, vomiting, difficulty or discomfort when urinating, bloody or black bowel movements, or any other acute or concerning symptom. Changes in Your Medications: New Medications: None -- please keep taking your Plavix and Xarelto as you had been before. You may discuss switching to a different blood thinner with your repairer maintenance building as an outpatient Stopped Medications - Aspirin - Valsartan - Speak with your repairer maintenance building about the timing of restarting this Follow-up Appointments Future Appointments Date Time Provider Department Center 06/10/2022 11:00 AM Loretta Cohen MD [facility] 06/13/2022 7:30 AM Edson [place]os [place] [facility] VAS LAB [facility] 06/13/2022 8:00 AM Fito Summers MD [facility] V SURG [facility] 06/13/2022 10:00 AM Alan Reid MD [facility] CARD 4A [facility] Your Inpatient Medical Team at [facility] Name(s) of your inpatient provider(s): Dr. John Ames For questions regarding issues relating to your hospitalization on the Hospital Medicine Service, please contact your inpatient physician through the [facility] Gre Instructor [phone]. Issues after hours and on weekends will be handled by the Hospitalist staff on-call. Your Primary Care Provider Bobby Das MD [phone] Future Appointments and Orders Future Appointments and Orders Future Appointments Provider Department Dept Phone 06/10/2022 11:00 AM Loretta Cohen MD [facility] Arrive at: Web Marketing Coordinator [address] [place] [address] 06/13/2022 7:30 AM Edson Lagos [place] V[facility] Lab at [facility] Arrive at: Web Marketing Coordinator Area [phone] 06/13/2022 8:00 AM Fito Summers MD Vascular Surgery at [facility] Arrive at: Web Marketing Coordinator Area 3V [phone] 06/13/2022 10:00 AM Alan Reid MD Cardiology at [facility] Arrive at: Web Marketing Coordinator Area 4A [phone] For questions regarding this document or issues relating to this hospitalization on the Medical Service, please contact your inpatient physician through the [facility] Gre Instructor . Issues afterhours and on weekends will be handled by the Hospitalist staff on-call. Signed: Arpita Valle MD documented in this encounter Discharge Instructions * Patient Instructions* Arpita Valle MD - 06/02/2022 11:21 AM EDT Patient Instructions on Discharge to Home Why you were hospitalized - You were dizzy and lightheaded and found to have a bleed coming from you GI tract. You had an EGD where they were able to cauterize the area and stop the bleeding. Becauseyou just had stents put into your heart, its really important to stay on the Plavix, but we spoke with cardiology agreed it's ok to stop the aspirin. You also will be continued on your blood thinner s amrita you recently had that clot in your leg. Because it's hard to switch these medicine's with insurance, we will continue with the Xeralto and you should discuss potentially switching to a differentblood thinner with the repairer maintenance building outpatient. Call your doctor or seek medical attention if you develop the following - chest pain, shortness of breath, feeling dizzy upon standing, passing out, diarrhea, constipation lasting longer than 2 days,fevers (temperature over 100.3), chills, abdominal pain, vomiting, difficulty or discomfort when urinating, bloody or black bowel movements, or any other acute or concerning symptom. Changes in Your Medications: New Medications: None -- please keep taking your Plavix and Xarelto as you had been before. You may discuss switching to a different blood thinner with your repairer maintenance building as an outpatient Stopped Medications - Aspirin - Valsartan - Speak with your repairer maintenance building about the timing of restarting this Follow-up Appointments Future Appointments Date Time Provider Department Center 06/10/2022 11:00 AM Loretta Cohen MD [facility] 06/13/2022 7:30 AM Edson [place] [facility] VAS LAB [facility] 06/13/2022 8:00 AM Fito Summers MD [facility] V SURG [facility] 06/13/2022 10:00 AM Alan Reid MD [facility] CARD 4A [facility] Your Inpatient Medical Team at [facility] Name(s) of your inpatient provider(s): Dr. John Ames For questions regarding issues relating to your hospitalization on the Hospital Medicine Service, please contact your inpatient physician through the [facility] Gre Instructor [phone]. Issues after hours and on weekends will be handled by the Hospitalist staff on-call. Your Primary Care Provider Bobby Das MD [phone] documented in this encounter Medications at Time of Discharge Medication Sig Dispensed Refills Start Date End Date fluticasone propionate (FLONASE) 50 mcg/actuation [place], Suspension 1 spray by Each Nare route [...] ORAL) Take 1 tablet by mouth daily. acetaminophen (Tylenol) 325 mg Tablet Take 2 tablets by mouth every 6 hours as needed for Pain. 30 tablet 1 05/21/2022 11/05/2023 clopidogreL (Plavix) 75 mg Tablet Take 1 tablet by mouth daily. 90 tablet 3 05/22/2022 05/30/2023 metoprolol succinate XL (Toprol-XL) 50 mg Tablet Sustained Release 24 hr Take 1 tablet by mouth daily. 30 tablet 12 05/21/2022 11/05/2023 dapagliflozin (Farxiga) 5 mg Tablet Take 1 tablet by mouth daily. 30 tablet 05/21/2022 06/13/2022 pantoprazole EC (Protonix) 40 mg Tablet, Delayed Release (E.C.) Take 1 tablet by mouth daily. 90 tablet 3 05/22/2022 09/05/2022 rivaroxaban (Xarelto) 20 mg Tablet Take 1 tablet by mouth daily. 30 tablet 11 05/17/2022 06/13/2022 ascorbic acid, vitamin C, (VITAMIN C) 1,000 mg Tablet Take 1,000 mg by mouth daily. 09/04/2020 11/12/2023 sildenafiL (VIAGRA) 100 mg Tablet Take 100 mg by mouth as needed for Erectile Dysfunction. 11/12/2023 calcium citrate (CALCITRATE) 200 mg (950 mg) Tablet Take 3 tablets by mouth daily. 600mg total 11/12/2023 documented as of this encounter Progress Notes * Sharmila Valenzuela MD - 06/02/2022 3:02 PM [...] red blood cells during this encounter, until a current type and screen specimen is tested and the patient is switched to crossmatch compatible blood. * John Jolley MD - 06/02/2022 2:53 PM [...] spent >30 minutes (Day of Discharge Code 42493) involved in the final examination of the [...] any medication changes and additional plans. * Kurt Ames MD - 06/01/2022 8:32 AM EDT Images from the original note were not included. Hospital Medicine Progress Note Warden Team - Pager #[phone] Admit Date: 05/31/2022 Name: Koko Zamora : 1940 Active Problems: Active Hospital Problems Diagnosis ??? GIB (gastrointestinal bleeding) Resolved Hospital Problems No resolved problems to display. Koko Zamora is a 81 y.o. male w/ PMH of mitral valve repair in 2000, prediabetes, tobacco use, alcohol use, prior GIB, recent hospitalization from 05/15 - 05/21 with acute limb ischemia LLE, wherehe had left common femoral transverse arteriotomy and [...] pain, nausea, vomiting, fevers, chills. No hematuria/hematemesis/hematochezia/melena. Remainsin Afib.Notably anxious about aspirin as a potential [...] - 05/21 with acute limb ischemia LLE, wherehe had left common femoral transverse arteriotomy and [...] (one with active oozing), both treated with argonbeam coagulation -Clear liquid diet -Maintain 2 large [...] Kurt Ames MD Internal Medicine, PGY-1 Medicine Warden Team #[id number] Associated attestation - John Jolley MD - 06/01/2022 5:02 PM EDT [facility] Medicine -- Attending Progress Note Please see Dr. Ames's note for details of the patient history of presentation and data. I have discussed, reviewed and agree with the documented History, Physical findings, Assessment and Plan ofcare. I have examined the patient myself and [...] stable, would plan to discharge tomorrow. No needfor high dose PPI therapy, would switch back to his home baseline. Attestation I certify that I am a D-H credentialed attending provider with admitting privileges andthat the patient meets or has met medical necessity to require an inpatient IPI level of care meeting a minimum of two midnights or is on the [facility] inpatient only procedure list (status C) due to: GI Bleeding documented in this encounter H&P Notes * Yamilet Victor MD - 05/31/2022 4:33 PM EDT Images from the original note were not included. [facility] Medicine (#[id number]) History and Physical Patient info: Name: Koko Zamora : 1940 PCP: Bobby Das MD PCP phone number: [phone] Date of Admission: 05/31/2022 ( Hospital Day 0 days ) Responsible Attending:Yamilet Victor MD There are no hospital problems [...] of mitral valve repair in 2000, prediabetes, tobaccouse, alcohol use, prior GIB, recent hospitalization from 05/15 - 05/21 with acute limb ischemia LLE, where he had left common femoral transverse arteriotomy and primary repair, thromboembolectomy of theSFA, profunda and common femoral artery with 4 compartment fasciotomies. His course was complicatedby new onset afib w/ RVR, and HFrEF (EF28%) for which he had a left heart cath revealing CAD nows/p stent placement in OM1 and angioplasty mid [...] was found to be in Afib with RVRwith rates in the low 100s. Hypotension with [...] IR Biopsy Spine 07/20/2019 Bobby Marshall MD [facility] INTERVENTIONL RAD ??? IR VERTEBROPLASTY LUMBAR MULTIPLE LEVELS 07/20/2019 IR Vertebroplasty Lumbar Multiple Levels 07/20/2019 Bobby Marshall MD [facility] INTERVENTIONL RAD ??? IR VERTEBROPLASTY THORACIC SINGLE LEVEL 10/25/2020 IR Vertebroplasty Thoracic Single Level 10/25/2020 Matt Chisholm MD [facility] INTERVENTIONL RAD ??? PRO EMBLC/THRMBC FEMORAL POPLITEAL AORTO-ILIAC ARTERY Left 05/15/2022 EMBOLECTOMY OR THROMBECTOMY, FEMOROPOPLITEAL, AORTOILIAC ARTERY BY LEG INCISION (WRVU 19.48) performed by Fito Summers MD at [facility] MAIN OR No family history [...] as needed for Pain.30 tablet 1 ??? valsartan (Diovan) 40 mg [...] 11 ??? fluticasone propionate (FLONASE) 50 mcg/actuation [place], Suspension as needed. ??? fluorouraciL (EFUDEX) 5 [...] Gas) No results found for: PHART, PO2ART, UXL9BLS, [id number] Microbiology: N/A Pertinent radiology/diagnostic studies: Recent prior [...] - 05/21 with acute limb ischemia LLE, wherehe had left common femoral transverse arteriotomy and [...] (one with active oozing), both treated with argonbeam coagulation -Clear liquid diet -Maintain 2 large [...] Status: Full Arpita Valle MD, PGY-3 05/31/2022 [facility] Medicine # [id number] Attending Staff Admission Documentation I have examined the patient myself on 05/31/2022 and reviewed all labs and studies personally. Please see Dr. Valle's documentation for details of the patient history of presentation and data. I have discussed, reviewed and agree with the documented history with ROS, physical findings, labs/studies, assessment and plan of care. YAMILET VICTOR MD 06/01/2022 documented in this encounter ED Notes * Karlos Still, RN - 05/31/2022 3:58 PM EDT Norepinephrine pulled from ominicell for soft BPs. Upon arrival to pt's room BPs had recovered and pt no longer met parameters for norepi admin. Norepinephrine NOT started. Endo RNs here to take pt procedure. They are aware of pt's earlier pressures, will initiated norepi from their stock if needed. * Jaylene Esparza RN - 05/31/2022 3:28 PM EDT Report given to ENDO nurse * Angella Floyd RN - 05/31/2022 1:14 PM EDT When RN asked if pt was dizzy anymore he stated I don't know, I am only dizzy when I stand up and I have been laying down while I have been here. * Gianni Francois - 05/31/2022 10:50 AM EDT Pt brought to XR by radiation control worker * Brittany Ramirez MD - 05/31/2022 10:40 AM EDT ED Resident Note HPI: Koko Zamora is a 81 y.o. male with history of G.I. bleeding thought to be due to a bleeding gastric ulcer secondary to NSAID use who was recently admitted 05/15-05/21/22 for acute limb ischemia ofthe left lower extremity (s/p Left common femoral transverse arteriotomy and primary repair; multi-vessel Thromboembolectomy; Left lower extremity 4 compartment fasciotomies) with hospitalization complicated by needing C now s/p DESx1, and transient episode of atrial fibrillation (no known history of this) who presents to the Emergency Department due to three days of worsening dyspnea on exertion and fatigue associated with low blood pressure readings on home BP cuff. Patient notes he had previously been doing well since his discharge on 05/21, [...] his medications, however notes that he has onlybeen taking his losartan once daily due to very low blood pressures with systolic symptoms 60s whenhe was taking it twice daily shortly after [...] have questions please contact the health child daycare worker that requested your imaging first. Electronically signed by: Jl Zuluaga MD, [facility] ([phone]), at 05/31/2022 2:39 PM XR Chest PA [...] have questions please contact the health child daycare worker that requested your imaging first. Electronically signed by: Alan Brink MD, [facility] ([phone]), at 05/31/2022 11:33 AM ED Course as of 05/31/22 1550 FriMay 31, 2022 1135 Hemoglobin(!): 7.4 From 11.8 10 days ago on day of admission. No recent melena, BRBPR, hematemesis, trauma, hematuria,or other known bleeding. Patient prefers this to [...] 2/2 bleeding gastric ulcer, admitted 05/15-05/21 for ALI s/p revascularization of the LLE with admission complicated by C s/p DESx1 and transient episodeof new onset atrial fibrillation, with TTE showing new HFrEf (EF28%) who presents to the ED due to o nset of dyspnea on exertion, lightheadedness, and fatigue beginning three days ago. Patient is in afib with RVR upon arrival, with blood pressure 100s over 60s, breathing comfortably on room air satting 98%, with normal work of breathing. Overall, symptoms Thought most likely to be secondary to symptomatic a fib with RVR, most likely caused by underlyingHFrEf with EF 28%, however pursued laboratory workup [...] symptoms, and can also explain compensatory response of his heart rate with atrial fibrillation at present. Further discussed with the patient concern ofoccult bleeding, and at this time performed rectal exam which was hemoccult positive without BRBPR or melena noted. Patient did not believe the hemoglobin, and requested that it be rechecked prior toinitiating blood transfusion. Recheck of hemoglobin was even more severe with hemoglobin 6.4. At this point, patient did have slowly decreasing blood pressures, now with blood pressures in the high 80s and low 90s over 60s. Significant relatively rapid improvement in blood pressure after receiving one unit of blood. Second unit infusing at end of my shift. Discussed the case with Graham fellow, whowill evaluate the patient at bedside. Also discussed with vascular surgery as an FYI given he was recently admitted to their service. CT abdomen and pelvis was completed to assess for active extravasation given the significant drop in hemoglobin in a relatively short amount of time [...] from [place]. Brittany Ramirez MD Resident 05/31/22 0272 Associated attestation - Dominique Hinds MD - 06/05/2022 7:40 AM EDT ED ATTENDING ATTESTATION NOTE The patient was seen in conjunction with the resident physician. I have independently performed thekey portions of the history and physical exam. [...] bleed documented in this encounter Miscellaneous Notes * Plan of Care - Trinidad Saenz RN - 06/02/2022 2:47 PM EDT OUTCOME EVALUATION NOTE: OUTCOME SUMMARY: Patient A&Ox4. Room air. HR elevated to 130s while ambulating and intermittently soft blood pressures, MD made aware. 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 Patient reported blurry/hazy vision with some hypotension, MD made aware. Patient given xarelto and heparin gtt discontinued. OOB independently. at bedside. Discharge instructions, education, and follow up appointment provided to patient and spouse. IVs discontinued. Patient provided with belongings. Patient verbalized understanding of instructions with no further questions, comments, or concerns. * Plan of Care - Raven Barbour RN [...] GOAL OUTCOME EVALUATION: * Consult Note - Rossy Anaya MD - 06/01/2022 7:25 PM EDT Images from the original note were not included. [facility] [place] [address] [address] INPATIENT CARDIOLOGY CONSULT NOTE Date of Consultation: 06/01/2022 Admit Date: 05/31/2022 Place of Service: IS86/IS86-A Referring Attending: DOMINIQUE HINDS COLEMAN W FRIEDMAN, HARLEY P Responsible General Pediatrician: Dr. Rizo Hospital Day 1 day Reason for Consult: Antiplatelet/anticoagulation s/p pci and afib, with GI bleed HPI: Koko Zamora is a 81 y.o. male with a cardiac history significant for remote mitral valve repair (2000), pre-DM, HLD, significant alcohol use, tobacco use, Afib on xarelto, ischemic systolic heart failure (recent C 05/20/2022 with 2V disease OM1 and distal RCA, had ostial LCX and LCx stent) who presented to [facility] on 05/31/2022 for GI bleed. Patient presented [...] and RCA disease. OM and LCx stented but distal RCA left alone and will f/u with [...] IR Biopsy Spine 07/20/2019 Bobby Marshall MD [facility] INTERVENTIONL RAD ??? IR VERTEBROPLASTY LUMBAR MULTIPLE LEVELS 07/20/2019 IR Vertebroplasty Lumbar Multiple Levels 07/20/2019 Bobby Marshall MD [facility] INTERVENTIONL RAD ??? IR VERTEBROPLASTY THORACIC SINGLE LEVEL 10/25/2020 IR Vertebroplasty Thoracic Single Level 10/25/2020 Matt Chisholm MD [facility] INTERVENTIONL RAD ??? PRO EMBLC/THRMBC FEMORAL POPLITEAL AORTO-ILIAC ARTERY Left 05/15/2022 EMBOLECTOMY OR THROMBECTOMY, FEMOROPOPLITEAL, AORTOILIAC ARTERY BY LEG INCISION (WRVU 19.48) performed by Fito Summers MD at [facility] MAIN OR ALLERGIES: Allergies Allergen [...] mouth daily. 90 tablet 3 05/30/2022 at Unknown time ??? metoprolol succinate XL (Toprol-XL) 50 mg Tablet Sustained Release 24 hr Take 1 tablet by mouthdaily. 30 tablet 12 05/30/2022 at Unknown time ??? dapagliflozin (Farxiga) 5 mg Tablet Take 1 tablet by mouth daily. 30 tablet 0 05/30/2022 at Unknown time ??? pantoprazole EC (Protonix) 40 mg Tablet, Delayed Release (E.C.) Take 1 tablet by mouth daily. 90 tablet 3 05/30/2022 at Unknown time ??? rivaroxaban (Xarelto) 20 mg Tablet Take 1 tablet by mouth daily. 30 tablet 11 05/30/2022 at Unknown time ??? fluticasone propionate (FLONASE) 50 mcg/actuation [place], Suspension 1 spray by Each Nare route daily as needed. Past Month at Unknown time ??? ascorbic acid, vitamin C, (VITAMIN C) 1,000 mg Tablet Take 1,000 mg by mouth daily. 05/30/2022 at Unknown time ??? calcium citrate (CALCITRATE) 200 mg [...] hours as needed for Pain.30 tablet 1 Unknown at Unknown time ??? [...] from 05/31/2022 in Intermediate [facility] ED to Hosp-Admission (Discharged) from 05/15/2022 in Intermediate Cardiac Care Unit [facility] Weight 77.1 kg (170 lb) [...] Neurology: Without focal deficit ECG: Echocardiogram: 05/16/2022 [facility] 05/20/2022 Coronary Angiography: Dominance: Right Left Main [...] 3.5 guiding catheter and a 3.5 Fr [place] [address] 20 Mhz. Imaging was successful. [...] this lesion. Vessel flow pre intervention was AEL 3. Lesion length was 10mm. Angioplasty was [...] atmospheres. A premounted 2.75 x 30 mm Surprise Story (AMPARO) was deployed with a maximum inflation [...] may require modification of this regimen. Consult [facility] Interventional Cardiology for questions. The [...] drop. Unknown source. has had a [facility] with stent placed and revascularization of [...] have questions please contact the health child daycare worker that requested your imaging first. Electronically signed by: lJ Zuluaga MD, [facility] ([phone]), at 05/31/2022 2:39 PM [facility] 48 Hrs-15 [...] (GENERIC) CLINICAL HISTORY: CHAMBERS, Fatigue. HFrEF, recent C with stent placed. ?pulmonary edema TECHNIQUE: PA [...] have questions please contact the health child daycare worker that requested your imaging first. Electronically signed by: Alan Brink MD, [facility] ([phone]), at 05/31/2022 11:33 AM LABS Recent Labs [...] for remote mitral valve repair (2000), pre-DM, HLD,significant alcohol use, tobacco use, Afib on xarelto, ischemic systolic heart failure (recent [facility] 05/20/2022 with 2V disease OM1 and distal RCA, had ostial LCX and LCx stent), recent admission for acute limb ischemia LLE, where he had left common femoral transverse arteriotomy and primary repair, thromboembolectomy of the SFA, profunda and common femoral artery with 4 compartment fasciotomies, who presented to [facility] on 05/31/2022 for GI bleed. Cardiology consulted [...] DOAC. Would switch to apixaban bid at dischargeif insurance covers given less bleeding risk -Would check with vascular if this regimen ok with them -F/u cardiology outpatient here (patient should be seen here at given his cath was done here andconsideration of RCA lesion) Case tdiscussed with attending. Please see attestation for additional insight. Rossy Anaya MD [facility] Label Press Operator, PGY-5 Inpatient Cardiology Consults Pager #[phone] Please check Qgenda for on-call cardiology consults fellow/team during weekdays. Associated attestation - Rhys Rizo MD - 06/02/2022 11:44 AM EDT I have seen the patient in person and reviewed Dr. Anaya's above history and I agree with the detailsas written. The assessment and plan were formulated in discussion with me and I agree with them as documented. Mr. 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 Agree that it is reasonable to stop aspirin. Would suggest switching Xarelto to apixaban given significantly lower risk of GI bleeding with apixaban compared to Xarelto. Restart Valsartan when BPs allow (would plan to switch to Entresto as outpatient). Follow-up with cardiology as outpatient. Rhys Rizo MD, MPH Cardiovascular Medicine * Plan of Care - Trinidad Saenz RN - 06/01/2022 6:03 PM EDT OUTCOME EVALUATION NOTE: OUTCOME SUMMARY: Patient A&Ox 4. On room air. VSS. 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 Adequate urine output, urinal at bedside, [...] monitoring]: redding monitor, Q2 safety checks, purposeful hourly rounding, bed alarm set * Initial Assessments - Luc Booker MSW - [...] surrogate would be surrogate decision maker per [place] decision making law. (Only good for 180 days) Any patient receiving care in [place] must abide by [place] law. The hierarchy for surrogate decision making [...] walker - rolling Home Address confirmed as: [address] [place] [phone] Social & Family Supports: All names listed below confirmed with patient as current and correct Extended Emergency Contact Information Primary Emergency Contact: Ursula Zamora Address: [address] [place] [phone] [facility] Relation: Spouse Current Care Provided by: self [...] Patient may benefit from VNA services pending hospital course. Health/Prescription Coverage: Primary Insurance: MEDICARE Payor: MEDICARE / Plan: MEDICARE PART A & B / Product Type: *No Product type* / Secondary Insurance: [facility] Secondary Insurance? (Only Medicare A&B): Yes ; Prescription Coverage: Yes Preferred Pharmacy: [phone] [address] [place] Status: Patient is a : No Primary Care Provider: Bobby Das MD [phone] Patient/Caregiver Goals of Treatment: Patient plans to [...] with transition of care planning. ASH Garcia Spiral Binder [facility] Medicine/ Medical Specialties Pager- [phone] * Plan of Care - Raven Barbour RN - 06/01/2022 6:29 AM EDT OUTCOME EVALUATION NOTE: OUTCOME SUMMARY: Koko transferred from ED ~2029. A&O x4, VSS on RA. Heparin gtt infusing per orders, UFH drawnat 0430, therapeutic, no change in dose per [...] GOAL OUTCOME EVALUATION: * Consult Note - Lonnie Good, [facility] - 05/31/2022 9:42 PM EDT TelePharmacy Home [...] knowledge and is ready to be reconciled by the provider. Please contact the TelePharmacy Medication Reconciliation Pharmacist at for any questions. Lonnie Good RPH * Op Note - Giovani Ponce MD - 05/31/2022 4:30 PM EDT DH Operative Note Patient Name: Koko Zamora : [id number] MR#: [id number] Case Date: 05/31/2022 Surgeon: Surgeon(s) and Role: * Giovani Ponce MD - Primary Procedure(s): EGD, UPPER GI ENDOSCOPY EGD, W CONTROL OF BLEEDING, ANY METHOD Please see Provation report for details. * Consult Note - Isi Celaya MD - 05/31/2022 2:14 PM EDT Images from the original note were not included. DIVISION OF GASTROENTEROLOGY & HEPATOLOGY INITIAL CONSULT REQUESTING PROVIDER: Dominique Hinds MD NAME: Koko Zamora : 1940 HPI: 81yo M w/PMH of remote mitral valve repair (2000), prediabetes, hyperlipidemia, significant alcoholuse, and tobacco use who was recently admitted [...] bleed about 20 yrs ago when on an aspirin regimen - he thinks he had an [...] but last night was constipated and felt like trying to pass a brick. Last night was [...] IR Biopsy Spine 07/20/2019 Bobby Marshall MD [facility] INTERVENTIONL RAD ??? IR VERTEBROPLASTY LUMBAR MULTIPLE LEVELS 07/20/2019 IR Vertebroplasty Lumbar Multiple Levels 07/20/2019 Bobby Marshall MD [facility] INTERVENTIONL RAD ??? IR VERTEBROPLASTY THORACIC SINGLE LEVEL 10/25/2020 IR Vertebroplasty Thoracic Single Level 10/25/2020 Matt Chisholm MD [facility] INTERVENTIONL RAD ??? PRO EMBLC/THRMBC FEMORAL POPLITEAL AORTO-ILIAC ARTERY Left 05/15/2022 EMBOLECTOMY OR THROMBECTOMY, FEMOROPOPLITEAL, AORTOILIAC ARTERY BY LEG INCISION (WRVU 19.48) performed by Fito Summers MD at [facility] MAIN OR SOCIAL HX: Social [...] sounds, tympanic to percussion RECTAL: performed with jig filler present, no overt masses, fissures, external hemorrhoids, or prolapse; non-tender to palpation without perianal fluctuance, normal resting sphincter tone, large amounts of dark, hard stool in the vault MSK: [...] have questions please contact the health child daycare worker that requested your imaging first. Electronically signed by: Alan Brink MD, [facility] ([phone]), at 05/31/2022 11:[address] Abdomen & [...] Procedure Name Priority Date/Time Associated Diagnosis Comments HEMOGRAM Routine 06/02/2022 8:20 AM EDT DIFFERENTIAL, AUTOMATED Routine 06/02/20 8:20 AM EDT HC CBC,PLT & AUTO DIFF Routine 8:20 AM EDT HC UNFRACTIONATED HEPARIN (HEP UFH) Routine 06/02/2022 6:30 AM EDT HC UNFRACTIONATED HEPARIN (HEP UFH) Routine 06/02/2022 12:30 AM EDT HC MAGNESIUM, SERUM Routine 06/02/2022 1 2:30 AM EDT BASIC METABOLIC PANEL Routine 06/02/2022 12:30 AM EDT HC UNFRACTIONATED HEPARIN (HEP UFH) Routine 06/01/2022 7:29 PM EDT HEMOGRAM Routine 06/01/2022 7:29 PM EDT DIFFERENTIAL, AUTOMATED Routine 06/01/20 7:29 PM EDT HC CBC,PLT & AUTO DIFF Routine 7:29 PM EDT HC UNFRACTIONATED HEPARIN (HEP UFH) Routine 06/01/2022 11:32 AM EDT HEMOGRAM Routine 06/01/2022 5:56 AM EDT DIFFERENTIAL, AUTOMATED Routine 06/01/20 5:56 AM EDT HC CBC,PLT & AUTO DIFF Routine 5:56 AM EDT HC UNFRACTIONATED HEPARIN (HEP UFH) Routine 06/01/2022 4:30 AM EDT URINALYSIS WITH REFLEX CULTURE Routine 06/01/2022 4:00 AM EDT HC MAGNESIUM, SERUM Routine 06/01/2022 1 :00 AM EDT BASIC METABOLIC PANEL Routine 06/01/2022 1:00 AM EDT HEMOGRAM Routine 06/01/2022 12:00 AM EDT DIFFERENTIAL, AUTOMATED Routine 06/01/20 12:00 AM EDT HC CBC,PLT & AUTO DIFF Routine 12:00 AM EDT HEMOGRAM Routine 05/31/2022 9:17 PM EDT DIFFERENTIAL, AUTOMATED Routine 05/31/20 9:17 PM EDT HC CBC,PLT & AUTO DIFF Routine 9:17 PM EDT Upper Gi Endoscopy, Ctrl Bleed ([id number]) 05/31/2022 4:05 PM EDT melena Upper GI Endoscopy, Diagnostic ([id number]) 05/31/2022 4:05 PM EDT melena UPPER GI ENDOSCOPY Routine 05/31/2022 3: [address] ABDOMEN AND PELVIS WWO CONTRAST (GI BLEED) STAT 05/31/2022 2:28 PM EDT TRANSFUSE RED BLOOD CELLS Routine 05/31/2022 2:03 PM EDT TYPE AND SCREEN VALIDITY STAT 05/31/2022 1:43 PM EDT ABORH RECHECK STATUS STAT 05/31/2022 1:43 PM EDT ABO/RH TYPING STAT 05/31/2022 1:43 PM EDT ANTIBODY SCREEN STAT 05/31/2022 1:43 PM EDT HC ANTIBODY DETECTION,CAPTURE-R STAT 05/31/2022 1:43 PM EDT PREPARE RBC STAT 05/31/2022 1:35 PM EDT PREPARE RBC STAT 05/31/2022 1:25 PM EDT HEMOGRAM STAT 05/31/2022 12:44 PM EDT DIFFERENTIAL, AUTOMATED STAT 05/31/20 12:44 PM EDT HC CBC,PLT & AUTO DIFF STAT 12:44 PM EDT BLOOD GAS VENOUS POC Routine 05/31/2022 11:24 AM EDT HC THYROID STIMULATING HORMONE, SERUM STAT 05/31/2022 11:20 AM EDT XR CHEST PA AND LATERAL STAT 05/31/20 11:06 AM EDT HEMOGRAM STAT 05/31/2022 10:50 AM EDT DIFFERENTIAL, AUTOMATED STAT 05/31/20 10:50 AM EDT BLUE TUBE HOLD STAT 05/31/2022 10:50 AM EDT HC CBC,PLT & AUTO DIFF STAT 10:50 AM EDT HC TROPONIN T STAT 05/31/2022 10:50 AM EDT HC PHOSPHORUS, SERUM STAT 05/31/2022 10:50 AM EDT HC PROBNP STAT 05/31/2022 10:50 AM EDT HC MAGNESIUM, SERUM STAT 05/31/2022 1 0:50 AM EDT LIPASE STAT 05/31/2022 10:50 AM EDT HEPATIC FUNCTION PANEL STAT 10:50 AM EDT BASIC METABOLIC PANEL STAT 05/31/2022 10:50 AM EDT EKG 12-LEAD STAT 05/31/2022 10:11 AM EDT documented in this encounter Results * (ABNORMAL) Differential, Automated (06/02/2022 8:20 AM EDT) Neutrophil % 61.3 % [facility] Neutrophil Absolute 4.44 1.70 - 6.10 x10(3)/mc L [facility] Lymph % 25.2 % [facility] Lymphocytes Abs 1.8 0.9 - 3.2 x10(3)/mc L [facility] Monocyte % 10.0 % [facility] Monocyte Abs 0.7 0.3 - 0.9 x10(3)/ L [facility] Eos % 2.1 % [facility] Eosinophils Abs 0.2 0.0 - 0.4 x10(3)/ L [facility] Basophil % 0.7 % [facility] Baso Absolute 0.0 0.0 - 0.1 x10(3)/mc L [facility] Immature Gran % 0.70 % [facility] Comment: Immature granulocytes(IG's)percentage and absolute count will include metamyelocytes, myelocytes, and promyelocytes. Blood smears from CBCs yielding IG's will be scanned manually for concordance. If this scan disagrees with the automated IG or if promyelocytes are noted, a manual differential will be performed. Immature Gran Absolute 0.05(H) 0.00 - 0.04 x10(3)/mc L [facility] Blood 06/02/2022 8:20 AM EDT 06/02/2022 8:25 AM EDT Narrative Resulting Agency Comment Spec In Lab Kurt Ames MD HEMATOLOGY ORDERABL ES [facility] [place] [address] * (ABNORMAL) Hemogram (06/02/2022 8:20 AM EDT) White Blood Cell 7.2 4.0 - 9.5 x10(3)/[facility] Red Blood Cell 2.74(L) 4.58 - 5.54 x10(6)/ L [facility] Hemoglobin 8.7(L) 13.7 - 16.5 g/dL [facility] Hematocrit 25.7(L) 40.5 - 48.5 % [facility] Mean Cell Volume 93.8(H) 82.9 - 93.1 fL [facility] Mean Cell Hemoglobin 31.8 27.5 - 32.1 pg [facility] Mean Cell Hemoglobin Concentration 33.9 32.0 - 35.7 g/dL [facility] Platelet 260 145 - 357 x10(3)/[facility] RDW Standard Deviation 51.0(H) 36.0 - 45.0 [facility] RDW coefficient of variation 14.9(H) 11.4 - 13.8 % [facility] Mean Platelet Volume 10.0 7.6 - 12.9 [facility] NRBC% auto 0.0 % [facility] NRBC Absolute 0.000 0.000 - 0.000 x10(3)/[facility] Blood 06/02/2022 8:20 AM EDT 06/02/2022 8:25 AM EDT Narrative Resulting Agency Comment Spec In Lab Kurt Ames MD HEMATOLOGY ORDERABL ES [facility] [place] [address] * Heparin (unfractionated) Level (06/02/2022 6:30 AM EDT) UF Heparin 0.39 IU/mL [facility] Comment: Heparin (anti-Xa) levels [...] cardiac surgery): 0.1 ? 0.3 IU/mL Blood 06/02/2022 6:30 AM EDT 06/02/2022 6:49 AM EDT Narrative Resulting Agency Comment Spec In Lab Yamilet Victor MD HEMATOLOGY ORDERAB LES Performing Organization Address [facility] Co de Phone Number [facility] [place] [address] * Heparin (unfractionated) Level (06/02/2022 12:30 AM EDT) UF Heparin 0.81 IU/mL [facility] Comment: Heparin (anti-Xa) levels [...] cardiac surgery): 0.1 ? 0.3 IU/mL Blood 06/02/2022 12:3 0 AM EDT 06/02/2022 12:40 AM EDT Narrative Resulting Agency Comment Spec In Lab Yamilet Victor MD HEMATOLOGY ORDERAB LES [facility] [place] [address] * Magnesium (06/02/2022 12:30 AM EDT) Magnesium 0.83 0.69 - 1.07 mmol/L [facility] Blood 06/02/2022 12:3 0 AM EDT 06/02/2022 12:40 AM EDT Narrative Resulting Agency Comment Spec In Lab Yamilet Victor MD CHEMISTRY ORDERABL ES [facility] [address] * (ABNORMAL) Basic Metabolic Panel (non-fasting) (06/02/2022 12:30 AM EDT) Glucose 151 65 - 199 mg/dL [facility] Comment:Diabetes: >=200 mg/d L plus symptoms Blood Urea Nitrogen 12 10 - 20 mg/dL [facility] Creatinine 0.71(L) 0.80 - 1.50 mg/dL [facility] [...] Laboratory if there are any questions. Chloride 108(H) 98 - 107 mmol/L [facility] Carbon Dioxide 24 22 - 31 mmol/L [facility] Anion Gap 10 5 - 15 mmol/L [facility] Calcium 8.1(L) 8.5 - 10.5 mg/dL [facility] Est Glomerular Filtration Rate 93 >=60 mL/min/1. 73 m?? [facility] Comment: This [...] and symptoms in addition to eGFR. Blood 06/02/2022 12:3 0 AM EDT 06/02/2022 12:40 AM EDT Narrative Resulting Agency Comment Spec In Lab Yamilet Victor MD CHEMISTRY ORDERABL ES [facility] [place] [place] [address] * (ABNORMAL) Differential, Automated (06/01/2022 7:29 PM EDT) Neutrophil % 68.8 % [facility] Neutrophil Absolute 5.34 1.70 - 6.10 x10(3)/mc L [facility] Lymph % 19.6 % [facility] Lymphocytes Abs 1.5 0.9 - 3.2 x10(3)/mc L [facility] Monocyte % 8.1 % [facility] Monocyte Abs 0.6 0.3 - 0.9 x10(3)/mc L [facility] Eos % 1.8 % [facility] Eosinophils Abs 0.1 0.0 - 0.4 x10(3)/mc L [facility] Basophil % 0.8 % [facility] Baso Absolute 0.1 0.0 - 0.1 x10(3)/mc L [facility] Immature Gran % 0.90 % [facility] Comment: Immature granulocytes(IG's)percentage and absolute count will include metamyelocytes, myelocytes, and promyelocytes. Blood smears from CBCs yielding IG's will be scanned manually for concordance. If this scan disagrees with the automated IG or if promyelocytes are noted, a manual differential will be performed. Immature Gran Absolute 0.07(H) 0.00 - 0.04 x10(3)/mc L [facility] Blood 06/01/2022 7:29 PM EDT 06/01/2022 7:29 PM EDT Narrative Resulting Agency Comment Spec In Lab Kurt Ames MD HEMATOLOGY ORDERABL ES [facility] [place] [place] [address] * (ABNORMAL) Hemogram (06/01/2022 7:29 PM EDT) White Blood Cell 7.8 4.0 - 9.5 x10(3)/mc L [facility] Red Blood Cell 2.65(L) 4.58 - 5.54 x10(6)/[facility] Hemoglobin 8.3(L) 13.7 - 16.5 g/dL [facility] Hematocrit 24.8(L) 40.5 - 48.5 % [facility] Mean Cell Volume 93.6(H) 82.9 - 93.1 [facility] Mean Cell Hemoglobin 31.3 27.5 - 32.1 pg [facility] Mean Cell Hemoglobin Concentration 33.5 32.0 - 35.7 g/dL [facility] Platelet 263 145 - 357 x10(3)/mc L [facility] RDW Standard Deviation 52.8(H) 36.0 - 45.0 fL [facility] RDW coefficient of variation 15.4(H) 11.4 - 13.8 % [facility] Mean Platelet Volume 10.4 7.6 - 12.9 [facility] NRBC% auto 0.0 % [facility] NRBC Absolute 0.000 0.000 - 0.000 x10(3)/ L [facility] Blood 06/01/2022 7:29 PM EDT 06/01/2022 7:29 PM EDT Narrative Resulting Agency Comment Spec In Lab Kurt Ames MD HEMATOLOGY ORDERABL ES Performing Organization Address [facility] Co de Phone Number [facility] [place] [address] * Heparin (unfractionated) Level (06/01/2022 7:29 PM EDT) UF Heparin 0.81 IU/mL [facility] Comment: Heparin (anti-Xa) levels [...] cardiac surgery): 0.1 ? 0.3 IU/mL Blood 06/01/2022 7:29 PM EDT 06/01/2022 7:29 PM EDT Narrative Resulting Agency Comment Spec In Lab Yamilet Victor MD HEMATOLOGY ORDERAB LES Performing Organization Address [facility]/ZIP Co de Phone Number [facility] [place] [address] * (ABNORMAL) Heparin (unfractionated) Level (06/01/2022 11:32 AM EDT) UF Heparin 1.05(Crit ical) IU/mL [facility] Comment: Critical Result called by ?? [employer] Results read back by: ? Giana Deng at 2022-06-01 11:46:34 Heparin (anti-Xa) levels should be determined in [...] cardiac surgery): 0.1 ? 0.3 IU/mL Blood 06/01/2022 11:3 2 AM EDT 06/01/2022 11:32 AM EDT Narrative Resulting Agency Comment Spec In Lab Yamilet Victor MD HEMATOLOGY ORDERAB LES [facility] [place] [address] * (ABNORMAL) Differential, Automated (06/01/2022 5:56 AM EDT) Neutrophil % 62.7 % [facility] Neutrophil Absolute 6.11(H) 1.70 - 6.10 x10(3)/mc L [facility] Lymph % 23.5 % [facility] Lymphocytes Abs 2.3 0.9 - 3.2 x10(3)/mc L [facility] Monocyte % 10.0 % [facility] Monocyte Abs 1.0(H) 0.3 - 0.9 x10(3)/mc L [facility] Eos % 2.2 % [facility] Eosinophils Abs 0.2 0.0 - 0.4 x10(3)/mc L [facility] Basophil % 0.9 % [facility] Baso Absolute 0.1 0.0 - 0.1 x10(3)/mc L [facility] Immature Gran % 0.70 % [facility] Comment: Immature granulocytes(IG's)percentage and absolute count will include metamyelocytes, myelocytes, and promyelocytes. Blood smears from CBCs yielding IG's will be scanned manually for concordance. If this scan disagrees with the automated IG or if promyelocytes are noted, a manual differential will be performed. Immature Gran Absolute 0.07(H) 0.00 - 0.04 x10(3)/mc L [facility] Blood 06/01/2022 5:56 AM EDT 06/01/2022 6:05 AM EDT Narrative Resulting Agency Comment Spec In Lab Arpita Valle MD HEMATOLOGY ORDERABLE S [facility] [address] * (ABNORMAL) Hemogram (06/01/2022 5:56 AM EDT) White Blood Cell 9.7(H) 4.0 - 9.5 x10(3)/mc L [facility] Red Blood Cell 2.83(L) 4.58 - 5.54 x10(6)/mc L [facility] Hemoglobin 9.0(L) 13.7 - 16.5 g/dL [facility] Hematocrit 26.7(L) 40.5 - 48.5 % [facility] Mean Cell Volume 94.3(H) 82.9 - 93.1 fL [facility] Mean Cell Hemoglobin 31.8 27.5 - 32.1 pg [facility] Mean Cell Hemoglobin Concentration 33.7 32.0 - 35.7 g/dL [facility] Platelet 250 145 - 357 x10(3)/mc L [facility] RDW Standard Deviation 54.3(H) 36.0 - 45.0 fL [facility] RDW coefficient of variation 15.9(H) 11.4 - 13.8 % [facility] Mean Platelet Volume 10.5 7.6 - 12.9 fL [facility] NRBC% auto 0.0 % [facility] NRBC Absolute 0.000 0.000 - 0.000 x10(3)/mc L [facility] Blood 06/01/2022 5:56 AM EDT 06/01/2022 6:05 AM EDT Narrative Resulting Agency Comment Spec In Lab Arpita Valle MD HEMATOLOGY ORDERABLE S Performing Organization Address [facility] Co de Phone Number [facility] [address] * Heparin (unfractionated) Level (06/01/2022 4:30 AM EDT) UF Heparin 0.68 IU/mL [facility] Comment: Heparin (anti-Xa) levels [...] cardiac surgery): 0.1 ? 0.3 IU/mL Blood 06/01/2022 4:30 AM EDT 06/01/2022 4:33 AM EDT Narrative Resulting Agency Comment Spec In Lab Yamilet Victor MD HEMATOLOGY ORDERAB LES Performing Organization Address [facility]/ZIP Co de Phone Number [facility] [address] * (ABNORMAL) Urinalysis with reflex Culture (06/01/2022 4:00 AM EDT) Glucose, Urine Dipstick 500(Critical ) Negative mg/dL [facility] Comment: Urinalysis result NOT critical without a combination of Glucose greater than or equal to 500 mg/dL AND Ketones greater than or equal to 80 mg/dL Protein, Urine Dipstick Negative Negative mg/dL [facility] Bilirubin, Urine Dipstick Negative Negative mg/dL [facility] Comment: Clinical correlation required for positive Urine Bilirubin results as false positive may occur with some drugs and drug related products. If a false positive is suspected a serum total bilirubin should be considered if clinically indicated. Urobilinogen, Urine Dipstick Normal Normal mg/dL [facility] pH, Urn (dipstick) 6.0 5.0 - 8.0 [facility] Blood, Urine Dipstick Negative Negative mg/dL [facility] Ketone, Urine Dipstick Negative Negative mg/dL [facility] Nitrite, Urine Dipstick Negative Negative [facility] Leukocytes, Urine Dipstick Negative Negative [facility] Appearance, Urine Dipstick Clear Clear [facility] Specific [place] Urine Automated >=1.030(A) 1.005 - 1.030 [facility] Color, Urine Dipstick Yellow Yellow [facility] Reflex to Culture No [facility] Clean Catch Urine 06/01/2022 4:00 AM EDT 06/01/2022 4:26 AM EDT Narrative Resulting Agency Comment Spec In Lab Yamilet Victor MD URINE ORDERABLES Performing Organization Address [facility] Co de Phone Number [facility] [place] [address] * Magnesium (06/01/2022 1:00 AM EDT) Magnesium 0.93 0.69 - 1.07 mmol/L [facility] Blood 06/01/2022 1:00 AM EDT 06/01/2022 1:37 AM EDT Narrative Resulting Agency Comment Spec In Lab Yamilet Victor MD CHEMISTRY ORDERABL ES Performing Organization Address [facility] Co de Phone Number [facility] [place] [address] * (ABNORMAL) Basic Metabolic Panel (non-fasting) (06/01/2022 1:00 AM EDT) Glucose 148 65 - 199 mg/dL [facility] Comment:Diabetes: >=200 mg/d L plus symptoms Blood Urea Nitrogen 23(H) 10 - 20 mg/dL [facility] Creatinine 0.78(L) 0.80 - 1.50 mg/dL [facility] [...] Laboratory if there are any questions. Chloride 108(H) 98 - 107 mmol/L [facility] [facility] Carbon Dioxide 24 22 - 31 mmol/L [facility] Anion Gap 9 5 - 15 mmol/L [facility] Calcium 8.6 8.5 - 10.5 mg/dL [facility] Est Glomerular Filtration Rate 91 >=60 mL/min/1. 73 m?? [facility] Comment: This [...] and symptoms in addition to eGFR. Blood 06/01/2022 1:00 AM EDT 06/01/2022 1:37 AM EDT Narrative Resulting Agency Comment Spec In Lab Yamilet Victor MD CHEMISTRY ORDERABL ES Performing Organization Address [facility]/ZIP Co de Phone Number [facility] [address] * (ABNORMAL) Differential, Automated (06/01/2022 12:00 AM EDT) Neutrophil % 64.6 % [facility] Neutrophil Absolute 5.60 1.70 - 6.10 x10(3)/mc L [facility] Lymph % 22.4 % [facility] Lymphocytes Abs 1.9 0.9 - 3.2 x10(3)/mc L [facility] Monocyte % 9.5 % [facility] Monocyte Abs 0.8 0.3 - 0.9 x10(3)/mc L [facility] Eos % 2.1 % [facility] Eosinophils Abs 0.2 0.0 - 0.4 x10(3)/mc L [facility] Basophil % 0.6 % [facility] Baso Absolute 0.0 0.0 - 0.1 x10(3)/mc L [facility] Immature Gran % 0.80 % [facility] Comment: Immature granulocytes(IG's)percentage and absolute count will include metamyelocytes, myelocytes, and promyelocytes. Blood smears from CBCs yielding IG's will be scanned manually for concordance. If this scan disagrees with the automated IG or if promyelocytes are noted, a manual differential will be performed. Immature Gran Absolute 0.07(H) 0.00 - 0.04 x10(3)/mc L [facility] Blood 06/01/2022 06/01/2022 12: 10 AM EDT Narrative Resulting Agency Comment Spec In Lab Arpita Valle MD HEMATOLOGY ORDERABLE S Performing Organization Address City/[facility]/ZIP Co de Phone Number [facility] [place] [address] * (ABNORMAL) Hemogram (06/01/2022 12:00 AM EDT) Pathologist [facility] White Blood Cell 8.7 4.0 - 9.5 x10(3)/mc L [facility] Red Blood Cell 2.77(L) 4.58 - 5.54 x10(6)/mc L [facility] Hemoglobin 8.6(L) 13.7 - 16.5 g/dL [facility] Hematocrit 25.7(L) 40.5 - 48.5 % [facility] Mean Cell Volume 92.8 82.9 - 93.1 fL [facility] Mean Cell Hemoglobin 31.0 27.5 - 32.1 pg [facility] Mean Cell Hemoglobin Concentration 33.5 32.0 - 35.7 g/dL [facility] Platelet 260 145 - 357 x10(3)/ L [facility] RDW Standard Deviation 51.9(H) 36.0 - 45.0 [facility] RDW coefficient of variation 15.5(H) 11.4 - 13.8 % [facility] Mean Platelet Volume 10.4 7.6 - 12.9 fL [facility] NRBC% auto 0.0 % [facility] NRBC Absolute 0.000 0.000 - 0.000 x10(3)/ L [facility] Blood 06/01/2022 06/01/2022 12: 10 AM EDT Narrative Resulting Agency Comment Spec In Lab Arpita Valle MD HEMATOLOGY ORDERABLE S [facility] [address] * (ABNORMAL) Differential, Automated (05/31/2022 9:17 PM EDT) Pathologist [facility] Neutrophil % 59.6 % [facility] Neutrophil Absolute 3.98 1.70 - 6.10 x10(3)/ L [facility] Lymph % 27.5 % [facility] Lymphocytes Abs 1.8 0.9 - 3.2 x10(3)/ L [facility] Monocyte % 9.1 % [facility] Monocyte Abs 0.6 0.3 - 0.9 x10(3)/[facility] Eos % 2.4 % [facility] Eosinophils Abs 0.2 0.0 - 0.4 x10(3)/[facility] Basophil % 0.7 % [facility] Baso Absolute 0.0 0.0 - 0.1 x10(3)/[facility] Immature Gran % 0.70 % [facility] Comment: Immature granulocytes(IG's)percentage and absolute count will include metamyelocytes, myelocytes, and promyelocytes. Blood smears from CBCs yielding IG's will be scanned manually for concordance. If this scan disagrees with the automated IG or if promyelocytes are noted, a manual differential will be performed. Immature Gran Absolute 0.05(H) 0.00 - 0.04 x10(3)/[facility] Blood 05/31/2022 9:17 PM EDT 05/31/2022 9:25 PM EDT Narrative Resulting Agency Comment Spec In Lab Arpita Valle MD HEMATOLOGY ORDERABLE S [facility] [place] [address] * (ABNORMAL) Hemogram (05/31/2022 9:17 PM EDT) White Blood Cell 6.7 4.0 - 9.5 x10(3)/[facility] Red Blood Cell 2.74(L) 4.58 - 5.54 x10(6)/ L [facility] Hemoglobin 8.5(L) 13.7 - 16.5 g/dL [facility] Hematocrit 25.7(L) 40.5 - 48.5 % [facility] Mean Cell Volume 93.8(H) 82.9 - 93.1 fL [facility] Mean Cell Hemoglobin 31.0 27.5 - 32.1 pg [facility] Mean Cell Hemoglobin Concentration 33.1 32.0 - 35.7 g/dL [facility] Platelet 233 145 - 357 x10(3)/mc L [facility] RDW Standard Deviation 51.9(H) 36.0 - 45.0 [facility] RDW coefficient of variation 15.3(H) 11.4 - 13.8 % [facility] Mean Platelet Volume 10.3 7.6 - 12.9 [facility] NRBC% auto 0.0 % [facility] NRBC Absolute 0.000 0.000 - 0.000 x10(3)/mc L [facility] Blood 05/31/2022 9:17 PM EDT 05/31/2022 9:25 PM EDT Narrative Resulting Agency Comment Spec In Lab Arpita Valle MD HEMATOLOGY ORDERABLE S [facility] [place] [address] * Transfuse RBC (05/31/2022 7:36 PM EDT) Dominique Hinds MD NURSING TREATMENT OR DERABLES - BLOOD ADMIN * Transfuse RBC (05/31/2022 7:36 PM EDT) Dominique Hinds MD NURSING TREATMENT OR DERABLES - BLOOD ADMIN * UPPER GI ENDOSCOPY (05/31/2022 3:37 PM EDT) UPPER GI ENDOSCOPY [facility] ___ Procedure Date: 05/31/2022 3:37 PM ? Patient Name: Koko Zamora ? Date of : 1940 ? Age: 81 ? Order #: [id number] ? Instrument Name: [id number] ? ___ Procedure: ? Upper GI endoscopy Indications: ? Melena, Suspected upper ? gastrointestinal bleeding Providers: ? Torrey Munoz, ? Vani Wei RN, Juhi Fajardo, ? Alannah Hutchinson, Cycle Repairer Referring MD: ?Dominique Hinds Medicines: ? Propofol per [...] the mouth, and ? advanced to the fourth part of ? duodenum The patient tolerated the ? procedure well. ? Findings: ? [...] with no ? bleeding and no stigmata of recent ? bleeding. ? 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 ? Both were treated with argon beam ? coagulation. ? - No specimens collected. Recommendation: ?- [facility]. ? - Clear liquid diet today. ? - Observe patient's clinical course. ? - Follow up with [facility] ? consult service. ? Procedure Code(s): ? --- Professional --- ? 93560, Esophagogastroduode noscopy, ? flexible, transoral; with control [...] stomach ? and duodenum CPT copyright 2021 [employer]. All rights reserved. The codes documented in this report are preliminary and upon film cleaner review may be revised to meet current compliance requirements. Attending Participation: ? I was present and participated during the entire ? procedure, including non-diaz portions. ? Giovani Ponce, 05/31/2022 4:56:14 PM Number of Addenda: 0 Note Initiated On: 05/31/2022 3:37 PM PROVATION 05/31/2022 3:37 PM EDT Dominique Hinds MD GENERAL SURGICAL ORD ERABLES PROVATION * CT Abdomen & Pelvis wwo Contrast (GI BLEED) (05/31/2022 2:28 PM EDT) Anatomical Region Laterality Modality Abdomen, Pelvis Computed Tomogra phy 05/31/2022 2:53 PM EDT Impressions 05/31/2022 2:39 [...] have questions please contact the health child daycare worker that requested your imaging first. ? Electronically signed by: Jl Zuluaga MD, [facility] ([phone]), at 05/31/2022 2:39 PM Narrative 05/31/2022 2:39 PM EDT EXAMINATION: CT ABDOMEN AND PELVIS WWO CONTRAST (GI BLEED) CLINICAL HISTORY: Significant Hb drop. Unknown source. has had a [facility] with stent placed and revascularization of [...] fiducial implants. Osseous structures: No suspicious lesions. Procedure Note Jl Zuluaga MD - 05/31/2022 EXAMINATION: CT ABDOMEN AND PELVIS WWO CONTRAST (GI BLEED) CLINICAL HISTORY: Significant Hb drop. Unknown source. has had a C withstent placed and revascularization of left lower extremity within the past twoweeks, recently on anticoagulation Unknown source of bleeding TECHNIQUE: Helical CT of the abdomen and pelvis was performed before andafter the intravenous administration contrast utilizing GI bleed protocol. Administered 125.0 ml of OMNIPAQUE 350.00 mg/ml. Oral contrast was not administered. COMPARISON: 05/15/2022 from [facility] FINDINGS: GI Tract: Pre-contrast: No bowel dilatation or intraluminal hemorrhage. Arterial phase: No active contrast extravasation. Portal venous phase: There is no active extravasation or pooling ofcontrast. No dilated loops of bowel, bowel wall [...] lesions. Kidneys: Symmetric enhancement. No collecting system obstructionbilaterally. 5 mm nonobstructing LEFT lower pole calculus. Urinary Bladder: Normal size, no focal lesions. Lymph Nodes: [No enlarged lymph nodes. Vasculature: Patent common iliac, external iliac, and common femoralarteries bilaterally. Post revascularization of the LEFT common femoral artery. Abdominal wall: Postoperative stranding noted in LEFT inguinal softtissues. No barrett hematoma. Reproductive organs: Calcifications in the prostate gland as well as 2fiducial implants. Osseous structures: No suspicious lesions. IMPRESSION 1. No active extravasation/bleeding. 2. Mild soft tissue stranding noted in the LEFT inguinal region secondaryto procedure. No barrett hematoma. Thank you for letting us participate in the care of this patient. If youare a health care provider and have any questions regarding this report,please contact the number below. For patients who have questions please contactthe health child daycare worker that requested your imaging first. Dominique Hinds MD IMG CT ORDERABLES * Type and Screen Validity (05/31/2022 1:43 PM EDT) T&S only valid at [facility] Comment:This Type and Screen result is only valid at the [facility] Blood 05/31/2022 1:43 PM EDT 05/31/2022 1:57 PM EDT Narrative Resulting Agency Comment Spec In Lab Dominique Hinds MD BLOOD BANK LAB ORDER NICK [facility] [place] [address] * ABORH Recheck Status (05/31/2022 1:43 PM EDT) ABORH Type Recheck Completed [facility] Blood 05/31/2022 1:43 PM EDT 05/31/2022 1:57 PM EDT Narrative Resulting Agency Comment Spec In Lab Dominique Hinds MD BLOOD BANK LAB ORDER NICK [facility] [place] [address] * Antibody screen (05/31/2022 1:43 PM EDT) Ab Screen Interp Negative [facility] Expires at [id number] on: 06/03/2022 [facility] Blood 05/31/2022 1:43 PM EDT 05/31/2022 1:57 PM EDT Narrative Resulting Agency Comment Spec In Lab Dominique Hinds MD BLOOD BANK LAB ORDER NICK [facility] [place] [address] * ABO/Rh Typing (05/31/2022 1:43 PM EDT) ABORH Type O Pos [facility] Blood 05/31/2022 1:43 PM EDT 05/31/2022 1:57 PM EDT Narrative Resulting Agency Comment Spec In Lab Dominique Hinds MD BLOOD BANK LAB ORDER NICK [facility] [place] [address] * Prepare RBC (05/31/2022 1:35 PM EDT) Dispensed? Yes [facility] Blood 05/31/2022 1:35 PM EDT 05/31/2022 1:30 PM EDT Dominique Hinds MD BLOOD BANK PRODUCT O RDERABLES [facility] [place] [address] * Prepare RBC (05/31/2022 1:25 PM EDT) Dispensed? Yes [facility] Blood 05/31/2022 1:25 PM EDT 05/31/2022 1:23 PM EDT Dominique Hinds MD BLOOD BANK PRODUCT O RDERABLES Performing Organization Address City/[facility]/ZIP Co de Phone Number [facility] [place] [address] * (ABNORMAL) Differential, Automated (05/31/2022 12:44 PM EDT) Neutrophil % 62.0 % [facility] Neutrophil Absolute 4.71 1.70 - 6.10 x10(3)/mc L [facility] Lymph % 24.1 % [facility] Lymphocytes Abs 1.8 0.9 - 3.2 x10(3)/mc L [facility] Monocyte % 10.8 % [facility] Monocyte Abs 0.8 0.3 - 0.9 x10(3)/mc L [facility] Eos % 1.6 % [facility] Eosinophils Abs 0.1 0.0 - 0.4 x10(3)/mc L [facility] Basophil % 0.7 % [facility] Baso Absolute 0.0 0.0 - 0.1 x10(3)/mc L [facility] Immature Gran % 0.80 % [facility] Comment: Immature granulocytes(IG's)percentage and absolute count will include metamyelocytes, myelocytes, and promyelocytes. Blood smears from CBCs yielding IG's will be scanned manually for concordance. If this scan disagrees with the automated IG or if promyelocytes are noted, a manual differential will be performed. Immature Gran Absolute 0.06(H) 0.00 - 0.04 x10(3)/ L [facility] Blood 05/31/2022 12:4 4 PM EDT 05/31/2022 12:57 PM EDT Narrative Resulting Agency Comment Spec In Lab Brittany Ramirez MD HEMATOLOGY ORDERABLE S [facility] [place] [address] * (ABNORMAL) Hemogram (05/31/2022 12:44 PM EDT) White Blood Cell 7.6 4.0 - 9.5 x10(3)/[facility] Red Blood Cell 2.11(L) 4.58 - 5.54 x10(6)/[facility] Hemoglobin 6.9(L) 13.7 - 16.5 g/dL [facility] Hematocrit 20.8(L) 40.5 - 48.5 % [facility] Mean Cell Volume 98.6(H) 82.9 - 93.1 fL [facility] Mean Cell Hemoglobin 32.7(H) 27.5 - 32.1 pg [facility] Mean Cell Hemoglobin Concentration 33.2 32.0 - 35.7 g/dL [facility] Platelet 255 145 - 357 x10(3)/[facility] RDW Standard Deviation 47.7(H) 36.0 - 45.0 fL [facility] RDW coefficient of variation 13.4 11.4 - 13.8 % [facility] Mean Platelet Volume 10.7 7.6 - 12.9 fL [facility] NRBC% auto 0.0 % [facility] NRBC Absolute 0.000 0.000 - 0.000 x10(3)/[facility] Blood 05/31/2022 12:4 4 PM EDT 05/31/2022 12:57 PM EDT Narrative Resulting Agency Comment Spec In Lab Brittany Ramirez MD HEMATOLOGY ORDERABLE S [facility] [address] [place] [address] * (ABNORMAL) BLOOD GAS 2 VENOUS (05/31/2022 11:24 AM EDT) pH, Venous 7.38 7.32 - 7.42 [facility] PCO2, Venous 40(L) 41 - 51 mmHg [facility] PO2, Venous 18(L) 25 - 40 mmHg [facility] Bicarbonate, Venous 23.3 mmol/L [facility] Base Excess, Venous -1.8 mmol/L [facility] Hgb Blood Gas 7.0(L) 13.7 - 16.5 g/dL [facility] Oxyhemoglobin, Venous 24.3 % [facility] Carboxyhemoglob in, Venous 1.4 % [facility] Comment: Nonsmokers: 0.5-1.5% COHB Smokers: Variable, but usually less than 10% Toxic: 20-30% COHB Lethal: Greater than 60% COHB Methemoglobin, Venous 1.7(H) <=1.5 % [facility] Na [...] [facility] Gluc Whole Bld 204(H) 65 - 199 mg/dL [facility] Comment:Diabetes: >=200 mg/d L plus symptoms Lactate WB 1.4 0.5 - 2.2 mmol/L [facility] Blood Gas Source Venous [facility] Blood 05/31/2022 11:2 4 AM EDT 05/31/2022 11:24 AM EDT Dominique Hinds MD POINT OF CARE TEST O RDERABLES Performing Organization Address [facility] Co de Phone Number [facility] [place] [address] * TSH [place] (05/31/2022 11:20 AM EDT) Thyroid Stimulating Hormone 1.67 0.27 - 4.20 mcIU/mL [facility] Comment: Reference Interval (mcIU/mL): Females: ??First Trimester: 0.23-3.88 ??Second Trimester: 0.22-3.90 ??Third Trimester: 0.44-4.66 Blood 05/31/2022 11:2 0 AM EDT 05/31/2022 11:28 AM EDT Narrative Resulting Agency Comment Spec In Lab Dominique Hinds MD CHEMISTRY ORDERABLES Performing Organization Address [facility] de Phone Number [facility] [place] [address] * XR Chest PA & Lateral (Generic) (05/31/2022 11:06 AM EDT) Anatomical Region Laterality Modality Chest N/A Digital Radiogra phy Impressions 05/31/2022 11:33 AM EDT No findings [...] have questions please contact the health child daycare worker that requested your imaging first. ? Electronically signed by: Alan Brink MD, [facility] ([phone]), at 05/31/2022 11:33 AM Narrative 05/31/2022 11:33 [...] levels. Procedure Note Alan Brink MD - 05/31/2022 EXAMINATION: XR CHEST PA AND LATERAL (GENERIC) CLINICAL HISTORY: CHAMBERS, Fatigue. HFrEF, recent LHC with stent placed. ?pulmonary edema TECHNIQUE: PA and lateral views of the chest, 2 images COMPARISON: Chest radiograph 05/16/2022 FINDINGS: There are median sternotomy wires and mediastinal surgical clips. Nofocal consolidation. There is mild pulmonary vascular congestion. Priorpulmonary interstitial edema has resolved. No pneumothorax. No pleural effusions. Unchanged mild cardiomegaly. Hilar are normal in size. Status post vertebroplasty at 2 thoracic levels. IMPRESSION No findings to suggest pneumonia. Prominent pulmonary vascular without overt interstitial or pulmonaryedema. I have personally reviewed the image(s) and the resident's interpretationand agree with the findings, Alan Brink MD at 05/31/2022 11:33 AM Thank you for letting us participate in the care of this patient. If youare a health care provider and have any questions regarding this report,please contact the number below. For patients who have questions please contactthe health child daycare worker that requested your imaging first. Dominique Hinds MD IMG DX ORDERABLES * Lipase (05/31/2022 10:50 AM EDT) Pathologist [facility] Lipase 41 0 - 60 unit/L [facility] Blood Venous Draw / Unknown 05/31/2022 10:50 AM EDT 05/31/2022 11:11 AM EDT Narrative Resulting Agency Comment Spec In Lab Zain Champion MD CHEMISTRY ORD ERABLES Performing Organization Address City/[facility] Co de Phone Number [facility] [place] [address] * (ABNORMAL) Hepatic Function Panel (05/31/2022 10:50 AM EDT) Protein, Total 6.4 6.1 - 8.0 g/dL [facility] Albumin 4.1 3.2 - 5.2 g/dL [facility] Aspartate Aminotransferase 24 0 - 39 unit/L [facility] Alanine Aminotransferase 44 0 - 55 unit/L [facility] Alkaline Phosphatase 63 40 - 130 unit/L [facility] Bilirubin, Total <0.2(L) 0.2 - 1.3 mg/dL [facility] Bilirubin, Direct 0.1 0.0 - 0.3 mg/dL [facility] Blood Venous Draw / Unknown 05/31/2022 10:50 AM EDT 05/31/2022 11:11 AM EDT Narrative Resulting Agency Comment Spec In Lab Zain Champion MD CHEMISTRY ORD ERABLES [facility] [place] [address] * Blue Tube HOLD (05/31/2022 10:50 AM EDT) [facility] Blue Hold Sample in lab. [facility] Blood Venous Draw / Unknown 05/31/2022 10:50 AM EDT 05/31/2022 11:05 AM EDT Brittany Ramirez MD HEMATOLOGY ORDERABLE S Performing Organization Address City/[facility] Co de Phone Number [facility] [place] [address] * (ABNORMAL) Differential, Automated (05/31/2022 10:50 AM EDT) [facility] Neutrophil % 66.9 % [facility] Neutrophil Absolute 5.58 1.70 - 6.10 x10(3)/mc L [facility] Lymph % 22.2 % [facility] Lymphocytes Abs 1.8 0.9 - 3.2 x10(3)/mc L [facility] Monocyte % 7.8 % [facility] Monocyte Abs 0.6 0.3 - 0.9 x10(3)/mc L [facility] Eos % 1.2 % [facility] Eosinophils Abs 0.1 0.0 - 0.4 x10(3)/mc L [facility] Basophil % 0.7 % [facility] Baso Absolute 0.1 0.0 - 0.1 x10(3)/mc L [facility] Immature Gran % 1.20 % [facility] Comment: Immature granulocytes(IG's)percentage and absolute count will include metamyelocytes, myelocytes, and promyelocytes. Blood smears from CBCs yielding IG's will be scanned manually for concordance. If this scan disagrees with the automated IG or if promyelocytes are noted, a manual differential will be performed. Immature Gran Absolute 0.10(H) 0.00 - 0.04 x10(3)/ L [facility] Blood 05/31/2022 10:5 0 AM EDT 05/31/2022 11:03 AM EDT Narrative Resulting Agency Comment Spec In Lab Brittany Ramirez MD HEMATOLOGY ORDERABLE S [facility] [place] [address] * (ABNORMAL) Hemogram (05/31/2022 10:50 AM EDT) White Blood Cell 8.3 4.0 - 9.5 x10(3)/[facility] LABORATORY Red Blood Cell 2.26(L) 4.58 - 5.54 x10(6)/[facility]ATORY Hemoglobin 7.4(L) 13.7 - 16.5 g/dL [facility] Hematocrit 22.3(L) 40.5 - 48.5 % [facility] Mean Cell Volume 98.7(H) 82.9 - 93.1 [facility] Mean Cell Hemoglobin 32.7(H) 27.5 - 32.1 pg [facility] Mean Cell Hemoglobin Concentration 33.2 32.0 - 35.7 g/dL [facility] Platelet 283 145 - 357 x10(3)/[facility] LABORATORY RDW Standard Deviation 47.0(H) 36.0 - 45.0 [facility] RDW coefficient of variation 13.4 11.4 - 13.8 % [facility] Mean Platelet Volume 10.8 7.6 - 12.9 [facility] NRBC% auto 0.0 % [facility] NRBC Absolute 0.000 0.000 - 0.000 x10(3)/ L [facility] Blood 05/31/2022 10:5 0 AM EDT 05/31/2022 11:03 AM EDT Narrative Resulting Agency Comment Spec In Lab Brittany Ramirez MD HEMATOLOGY ORDERABLE S [facility] [place] [address] * Phosphorus (05/31/2022 10:50 AM EDT) Phosphorus 3.2 2.5 - 4.5 mg/dL [facility] Blood 05/31/2022 10:5 0 AM EDT 05/31/2022 11:03 AM EDT Narrative Resulting Agency Comment Spec In Lab Dominique Hinds MD CHEMISTRY ORDERABLES Performing Organization Address [facility] Co de Phone Number [facility] [place] [address] * Magnesium (05/31/2022 10:50 AM EDT) Magnesium 0.93 0.69 - 1.07 mmol/L [facility] Blood 05/31/2022 10:5 0 AM EDT 05/31/2022 11:03 AM EDT Narrative Resulting Agency Comment Spec In Lab Dominique Hinds MD CHEMISTRY ORDERABLES Performing Organization Address City/[facility]/ZIP Co de Phone Number [facility] [place] [address] * (ABNORMAL) pro-Brain Natriuretic Peptide (05/31/2022 10:50 AM EDT) NT-proBNP 1,077(H) <=449 pg/mL [facility] Blood 05/31/2022 10:5 0 AM EDT 05/31/2022 11:03 AM EDT Narrative Resulting Agency Comment Spec In Lab Dominique Hinds MD CHEMISTRY ORDERABLES Performing Organization Address City/[facility]/ZIP Co de Phone Number [facility] [place] [address] * Troponin (05/31/2022 10:50 AM EDT) [facility] Troponin-T <0.01 0.00 - 0.00 ng/mL [facility] Comment: The 99th percentile for Troponin T is less than 0.01 ng/mL, any detectable cTnT concentration using this assay should be considered elevated. According to the third universal definition of myocardial infarction the following criteria with a clinical presentation consistent with acute myocardial ischemia meets the diagnosis for a myocardial infarction (CA). Detection of a rise and/or fall of cTnT, with at least one value greater than the 99th percentile (> or = 0.01) and with at least one of the following ?? Symptoms of ischemia ?? New or presumed new significant GV-asftmhf-L wave (ST-T) changes or new left bundle branch block (LBBB) ?? Development of pathologic Q waves in the ECG ?? Imaging evidence of new loss of viable myocardium or new regional wall motion abnormality ?? Identification of an intracoronary thrombus by angiography or autopsy Samples for cTnT testing should be obtained serially upon first assessment and again 3 to 6 hours later. If the clinical suspicion is high and previous samples have been negative an additional sample may be indicated. Reference: Third [place] Definition of Myocardial Infarction. Journal of the [place] [employer] 2012;60:1581-98 Blood 05/31/2022 10:5 0 AM EDT 05/31/2022 11:03 AM EDT Narrative Resulting Agency Comment Spec In Lab Dominique Hinds MD CHEMISTRY ORDERABLES [facility] [place] [address] * (ABNORMAL) Basic Metabolic Panel (non-fasting) (05/31/2022 10:50 AM EDT) [facility] Glucose 223(H) 65 - 199 mg/dL [facility] Comment:Diabetes: >=200 mg/d L plus symptoms Blood Urea Nitrogen 39(H) 10 - 20 mg/dL [facility] [...] questions. Chloride 107 98 - 107 mmol/L [facility] Carbon Dioxide 23 22 - 31 mmol/L [facility] Anion Gap 10 5 - 15 mmol/L [facility] Calcium 9.1 8.5 - 10.5 mg/dL [facility] Est Glomerular Filtration Rate 86 >=60 mL/min/1. 73 m?? [facility] Comment: This [...] and symptoms in addition to eGFR. Blood 05/31/2022 10:5 0 AM EDT 05/31/2022 11:03 AM EDT Narrative Resulting Agency Comment Spec In Lab Dominique Hinds MD CHEMISTRY ORDERABLES [facility] [place] [address] * EKG 12 Lead (05/31/2022 10:11 AM EDT) Ventricular rate 106 BPM MUSE SYSTEM QRS Duration 122 ms MUSE SYSTEM Q-T Interval 368 ms MUSE SYSTEM QTC Calculated (Bezet) 488 ms MUSE SYSTEM Calculated R [place] -43 degrees MUSE SYSTEM Calculated T [place] 109 degrees MUSE SYSTEM INTERPRETATION Atrial fibrillation with rapid ventricular response Left axis deviation Minimal voltage criteria for LVH, may be normal variant ( Paolo product ) Cannot rule out Anterior infarct , age undetermined Abnormal ECG When compared with ECG of 20-MAY-2022 19:04, No significant change was found I personally reviewed the tracing and edited the fellows interpretation Confirmed by fellow MD Mckeon Benjamin ([id number]) on 06/02/2022 8:36:21 PM Confirmed by MD MARKS JOHN ([id number]) on 06/03/2022 5:04:32 PM MUSE SYSTEM 05/31/2022 10:1 1 AM EDT 06/03/2022 5:04 PM EDT Dominique Hinds MD ECG ORDERABLES MUSE SYSTEM documented in this encounter Visit Diagnoses Diagnosis GIB (gastrointestinal bleeding)- Primary Hemorrhage of gastrointestinal tract, unspecified GIB (gastrointestinal bleeding) Hemorrhage of gastrointestinal tract, unspecified documented in this encounter Admitting Diagnoses Diagnosis GIB (gastrointestinal bleeding) Hemorrhage of gastrointestinal tract, unspecified documented in this encounter Administered Medications Inactive Administered Medications - up to 3 most recent administrations Medication Order MAR Action Action Date Dose Rate Site clopidogreL (Plavix) tablet 75 mg 75 mg, Oral, DAILY, First dose on Fri05/31/22 at 2016, Until Discontinued, Routine Given 06/02/2022 8:12 AM EDT 75 mg Given 06/01/2022 8:12 AM EDT 75 mg Given 05/31/2022 9:09 PM EDT 75 mg fluticasone propionate (Flonase) 50 mcg/actuation nasal spray 1 spray 1 spray, Each Nare, DAILY, First dose on Fri05/31/22 at 2016, Until Discontinued, Routine Given 06/02/2022 8:13 AM EDT 1 spray Given 06/01/2022 9:34 AM EDT 1 spray Given 05/31/2022 9:09 PM EDT 1 spray heparin (porcine) (1,000 units/mL) injection 0-4,000 Units 0-4,000 Units, Intravenous, BOLUS PER HEPARIN PROTOCOL, Starting on Fri05/31/22 at 2014, Until Fri06/02/22 at 1702, Per Protocol, START ADJUSTMENT SCHEDULE 6 HOURS AFTER STARTING INFUSION Bolus doses are rounded to the nearest 100 units. If Heparin UFH Level is: - Less than 0.1 international unit/mL: Bolus 60 units/kg (Maximum of 4,000 units) = Bolus 4,000 units - 0.1 - 0.19 International unit/mL: Bolus 30 units/kg (Maximum of 2,000 units) = Bolus 2,000 units - Equal to or greater than 0.2 international unit/mL: No Bolus, Routine heparin (porcine) 50 units/mL in sodium chloride [...] Heparin UFH Level - Per Protocol, Routine New Bag 06/02/2022 7:10 AM EDT 400 Units/hr 8 mL/hr Rate/Dose Verify 06/02/2022 6:59 AM EDT 400 Units/hr 8 mL/ hr Rate/Dose Change 06/02/2022 12:51 AM EDT 400 Units/hr 8 mL /hr iohexoL (Omnipaque) (350 mg/mL) solution 0-200 mL 0-200 mL, Intravenous, ONCE PRN, 1 dose, Starting on Fri05/31/22 at 1428, Until Fri05/31/22 at 1429, Per Protocol, Warning Vesicant/Irritant Medication , Radiology Contrast, Routine Given 05/31/2022 2:29 PM EDT 125 mLs lidocaine (Lidoderm) 5% patch 2 patch 2 patch, Transdermal, EVERY 24 HOURS, First dose on Fri06/02/22 at 0430, Until Discontinued, Apply patch(es) to left lower extremity for 12 hours, and then remove for 12 hours. Can cut to fit on anterior martell and posterior calf., Routine Patch Applied 06/02/2022 4:17 AM EDT 2 patches 20-Other (document in comment section) lidocaine (Lidoderm) topical patch REMOVAL Transdermal, EVERY 24 HOURS, First dose on 06/02/22 at 1630, Until Discontinued, Remove lidocaine 5% patch metoproloL tartrate (Lopressor) tablet 12.5 mg 12.5 mg, Oral, EVERY 6 HOURS SCHEDULED, First dose on 06/01/22 at 0000, Until Discontinued, Please hold for systolic <90 or HR <60, Routine Given 06/02/2022 12:23 PM EDT 12.5 mg Given 06/02/2022 12:35 AM EDT 12.5 mg Given 06/01/2022 5:28 PM EDT 12.5 mg pantoprazole (Protonix) injection 40 mg 40 mg, Intravenous, 2 TIMES DAILY, First dose on Fri05/31/22 at 1436, Until Discontinued Given 06/01/2022 8:12 AM EDT 4 0 mg Given 05/31/2022 9:09 PM EDT 40 mg Given 05/31/2022 5:52 PM EDT 40 mg pantoprazole EC (Protonix) tablet 40 mg 40 mg, Oral, DAILY, First dose on 7/23/22 at 1645, Until Discontinued, DO NOT CRUSH OR OPEN Given 06/02/2022 8:11 AM EDT 40 mg rivaroxaban (Xarelto) tablet 20 mg 20 mg, Oral, DAILY, First dose on Fri06/02/22 at 1115, Until Discontinued, Routine, Restricted anticoagulant, choose the most appropriate response: Continuation of ongoing therapy Given 06/02/2022 11:48 AM EDT 20 mg rosuvastatin (Crestor) tablet 40 mg 40 mg, Oral, DAILY, First dose on Fri05/31/22 at 2016, Until Discontinued, Routine Given 06/02/2022 8:11 AM EDT 40 mg Given 06/01/2022 8:12 AM EDT 40 mg Given 05/31/2022 9:09 PM EDT 40 mg sodium chloride 0.9 % (flush) (BD PosiFlush Normal Saline 0.9) flush 5 mL 5 mL, Intravenous, 2 TIMES DAILY, First dose on Fri05/31/22 at 2100, Until Discontinued, Routine Given 06/02/2022 8:14 AM EDT 5 mLs Given 06/01/2022 8:43 PM EDT 5 mLs Given 06/01/2022 8:13 AM EDT 5 mLs tamsulosin (Flomax) capsule 0.4 mg 0.4 mg, Oral, DAILY, First dose on Fri06/01/22 at 1400, Until Discontinued, DO NOT CRUSH OR OPEN, Routine Given 06/02/2022 8:12 AM EDT 0.4 mg Given 06/01/2022 2:18 PM EDT 0.4 mg documented in this encounter Active and Recently Administered Medications Times are shown in EDT. Scheduled Medication Order 05/31/2022 06/01/2022 06/02/2022 clopidogreL (Plavix) tablet 75 mg 75 mg, Oral, DAILY, First dose on Fri05/31/22 at 2016, Until Discontinued, Routine 2108 (Given - Provider: Raven Barbour RN) 811 (Given - Provider: Trinidad Saenz RN) 811 (Given - Provider: Trinidad Saenz RN) fluticasone propionate (Flonase) 50 mcg/actuation nasal spray 1 spray 1 spray, Each Nare, DAILY, First dose on Fri05/31/22 at 2016, Until Discontinued, Routine 2109 (Given - Provider: Raven Barbour RN) 0934 (Given - Provider: Trinidad Saenz RN) 0813 (Given - Provider: Trinidad Saenz RN) lidocaine (Lidoderm) 5% patch 2 patch(Linked Group 1) 2 patch, Transdermal, EVERY 24 HOURS, First dose on 06/02/22 at 0430, Until Discontinued, Apply patch(es) to left lower extremity for 12 hours, and then remove for 12 hours. Can cut to fit on anterior martell and posterior calf., Routine 0417 (Patch Applied - Provider: Raven Barbour RN - Comment: Left lower leg (ant and post)) lidocaine (Lidoderm) topical patch REMOVAL(Linked Group 1) Transdermal, EVERY 24 HOURS, First dose on 06/02/22 at 1630, Until Discontinued, Remove lidocaine 5% patch metoproloL tartrate (Lopressor) tablet 12.5 mg 12.5 mg, Oral, EVERY 6 HOURS SCHEDULED, First dose on Fri06/01/22 at 0000, Until Discontinued, Please hold for systolic <90 or HR <60, Routine 0004 (Given - Provider: Raven Barbour RN)0557 (Not Given - Provider: Raven Barbour RN - Reason: Contraindicated - Comment: per verbal MD order Kirstin Aimee, do not give)1150 (Given - Provider: Trinidad Saenz RN)1728 (Given - Provider: Trinidad Saenz RN) 0035 (Given - Provider: Raven Barbour RN)0600 (Not Given - Provider: Raven Barbour RN - Reason: Order parameters not met)1223 (Given - Provider: Maranda Ribeiro RN) pantoprazole (Protonix) injection 40 mg (CANCELED) 40 mg, Intravenous, 2 TIMES DAILY, First dose on Fri05/31/22 at 1436, Until Discontinued 1605 (MAR Hold - Provider: Admin Adt - Reason: Transfer to a Procedural area)1747 (MAR Unhold - Provider: Admin Adt)1752 (Given - Provider: Angella Floyd RN)2109 (Given - Provider: Raven Barbour RN) 0812 (Given - Provider: Trinidad Saenz RN) pantoprazole EC (Protonix) tablet 40 mg 40 mg, Oral, DAILY, First dose on Fri06/01/22 at 1645, Until Discontinued, DO NOT CRUSH OR OPEN 1645 (Not Given - Provider: Trinidad Saenz RN - Reason: Contraindicated - Comment: received AM dose this morning IVP) 0811 (Given - Provider: Trinidad Saenz RN) rivaroxaban (Xarelto) tablet 20 mg 20 mg, Oral, DAILY, First dose on Fri06/02/22 at 1115, Until Discontinued, Routine, Restricted anticoagulant, choose the most appropriate response: Continuation of ongoing therapy 1148 (Given - Provider: Maranda Ribeiro RN) rosuvastatin (Crestor) tablet 40 mg 40 mg, Oral, DAILY, First dose on Fri05/31/22 at 2016, Until Discontinued, Routine 2108 (Given - Provider: Raven Barbour RN) 0812 (Given - Provider: Trinidad Saenz RN) 0811 (Given - Provider: Trinidad Saenz RN) sodium chloride 0.9 % (flush) (BD PosiFlush Normal Saline 0.9) flush 5 mL 5 mL, Intravenous, 2 TIMES DAILY, First dose on Fri05/31/22 at 2100, Until Discontinued, Routine 2118 (Given - Provider: Raven Barbour RN) 0813 (Given - Provider: Trinidad Saenz RN)2042 (Given - Provider: Raven Barbour RN) 0814 (Given - Provider: Trinidad Saenz RN) tamsulosin (Flomax) capsule 0.4 mg 0.4 mg, Oral, DAILY, First dose on Fri06/01/22 at 1400, Until Discontinued, DO NOT CRUSH OR OPEN, Routine 1418 (Given - Provider: Trinidad Saenz RN) 0812 (Given - Provider: Trinidad Saenz RN) Continuous Medication Order 05/31/2022 06/01/2022 06/02/2022 heparin (porcine) 50 units/mL in sodium chloride 0.45% 500 mL infusion(Linked Group 2) 0-5,000 Units/hr (0-100 mL/hr), Intravenous, CONTINUOUS, Starting [...] Heparin UFH Level - Per Protocol, Routine 2230 (New Bag - Provider: Raven Barbour RN) 0457 (Rate/Dose Verify - Provider: Raven Barbour RN)1152 (Paused - Provider: Trinidad Saenz RN - Comment: UFH 1.05)1255 (Restarted - Provider: Trinidad Saenz RN)1951 (Rate/Dose Change - Provider: Raven Barbour RN) 0051 (Rate/Dose Change - Provider: Raven Barbour RN)0659 (Rate/Dose Verify - Provider: Raven Barbour RN)2710 (New Bag - Provider: Raven Barbour RN)7018 (Stopped - Provider: Maranda Ribeiro RN) PRN Medication Order 05/31/2022 06/01/2022 06/02/2022 acetaminophen (Tylenol) tablet 650 mg 650 mg, Oral, EVERY 6 HOURS PRN, Starting on Fri05/31/22 at 2013, Until Fri06/02/22 at 1702, Pain, Maximum dose of acetaminophen is 4000 mg from all sources in 24 hours. When ordered for pain, acetaminophen should be given even when other ordered pain medications are indicated. , Routine carboxymethylcellulose (Refresh Plus) 0.5 % ophthalmic drops 1 drop 1 drop, Both Eyes, 3 TIMES DAILY PRN, Starting on Fri05/31/22 at 2013, Until Fri06/02/22 at 1702, Dry Eyes, Routine heparin (porcine) (1,000 units/mL) injection 0-4,000 Units(Linked Group 2) 0-4,000 Units, Intravenous, BOLUS PER HEPARIN PROTOCOL, Starting on Fri05/31/22 at 2013, Until [...] of 2,000 units) = Bolus 2,000 units - Equal to or greater than 0.2 international unit/mL: No Bolus, Routine iohexoL (Omnipaque) (350 mg/mL) solution 0-200 mL (COMPLETED) 0-200 mL, Intravenous, ONCE PRN, 1 dose, Starting on Fri05/31/22 at 1428, Until Fri05/31/22 at 1429, Per Protocol, Warning Vesicant/Irritant Medication , Radiology Contrast, Routine 1429 (Given - Provider: Desiree Price) lidocaine (Xylocaine) 1% (10 mg/mL) injection 3 mg 3 mg (0.3 mL), Subcutaneous, ONCE PRN, 1 dose, Starting on Fri05/31/22 at 2013, Until Fri06/02/22 at 1702, for discomfort with PIV insertion, Routine sodium chloride 0.9 % (flush) (BD PosiFlush Normal Saline 0.9) flush 5-20 mL 5-20 mL, Intravenous, EVERY 1 MIN PRN, Starting on Fri05/31/22 at 2013, Until Fri06/02/22 at 1702, flush, Flush pertains to all indwelling lines. Flush per protocol found in the job aid using the link provided on this medication record., Routine Linked Groups Order Group 1: lidocaine (Lidoderm) 5% patch 2 patchJump to med 2 patch, Transdermal, EVERY 24 HOURS, First dose on Fri06/02/22 at 0430, Until Discontinued, Apply patch(es) to left lower extremity for 12 hours, and then remove for 12 hours. Can cut to fit on anterior martell and posterior calf., Routine And lidocaine (Lidoderm) topical patch REMOVALJump to med Transdermal, EVERY 24 HOURS, First dose on Fri06/02/22 at 1630, Until Discontinued, Remove lidocaine 5% patch Group 2: heparin (porcine) 50 units/mL in sodium chloride 0.45% 500 mL infusionJump to med 0-5,000 Units/hr (0-100 mL/hr), Intravenous, [...] to med 0-4,000 Units, Intravenous, BOLUS PER HEPARIN PROTOCOL, Starting on Fri05/31/22 at 2014, Until Fri06/02/22 at 1702, Per Protocol, START ADJUSTMENT SCHEDULE 6 HOURS AFTER STARTING INFUSION Bolus doses are rounded to the nearest 100 units. If Heparin UFH Level is: - Less than 0.1 international unit/mL: Bolus 60 units/kg (Maximum of 4,000 units) = Bolus 4,000 units - 0.1 - 0.19 International unit/mL: Bolus 30 units/kg (Maximum of 2,000 units) = Bolus 2,000 units - Equal to or greater than 0.2 international unit/mL: No Bolus, Routine documented in this encounter Care Teams Medical Esthetician Relationship Specialty Start Date End Date Bobby Das MD [address] [place] [address] [place] [address] PCP - General 10/02/10 documented as of this encounter
--- OUTSIDE RECORDS SUMMARY | 2024-09-17 01:31 | XMS_ITS | Encounter Summary ---
Author Organization [facility] [place] [address] Care Team Providers Care Manager Gift Name Role Phone Bobby Das MD Primary Care Provider [phone] Reason for Referral * Diagnostic Test (Routine) - Closed Specialty Diagnoses / Procedures Referred By Colby quezada Referred To Contact Cardiology Diagnoses HFrEF (heart failure with reduced ejection fraction) Procedures Echocardiogram Transthoracic Bel Blanco MD [facility] [place] [address] [facility] [place] [address] Referral ID Status Reason Start Date Expiration Date V isits Requested Visits Authorized [id number] Closed Specialty Service Requested 06/13/2022 06/13/2023 1 1 Reason for Visit * Consultation (Routine) - Closed Specialty Diagnoses / Procedures Referred By Colby quezada Referred To Contact Cardiology Diagnoses HFrEF (heart failure with reduced ejection fraction) Paroxysmal atrial fibrillation Post-hospital follow-up, s/p PCI with stenting, heart failure Nasrin Parra PA [facility] [place] [address] [facility] [address] [place], [place] [id number] Referral ID Status Reason Start Date Expiration Date V isits Requested Visits Authorized [id number] Closed Consult, Test & Treat 05/21/2022 05/21/2023 1 1 Encounter Details Date Type Department Care Team (Late st Contact Info) Description 06/13/2022 10:00 AM EDT Office Visit Cardiology at [address] [phone] Bel Blanco MD [facility] [place], [place] [id number] 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 The dose is .125 mg daily Everything else stays the same I will see you back in two months. You will have an echocardiogram prior to your visit. documented in this encounter Progress Notes * Bel Blanco MD - 06/13/2022 10:00 AM EDT Images from the original note were not included. [facility] [place] [address] [address] CARDIOLOGY OUTPATIENT PROGRESS NOTE PRIMARY CARE PROVIDER: Bobby Das MD REFERRING PROVIDER: Nasrin Parra PROBLEM LIST: Patient Active Problem List Diagnosis ??? 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 Hypertriglyceridemia ??? Adhesive capsulitis of L shoulder ??? Alcohol use MEDICATIONS: Current Outpatient Medications Medication Sig Dispense Refill ??? clopidogreL (Plavix) 75 mg Tablet Take 1 tablet by mouth daily. 90 tablet 3 ??? metoprolol succinate XL (Toprol-XL) 50 mg Tablet Sustained Release 24 hr Take 1 tablet by mouthdaily. 30 tablet 12 ??? pantoprazole EC (Protonix) 40 mg Tablet, Delayed Release (E.C.) Take 1 tablet by mouth daily. 90 tablet 3 ??? fluticasone propionate (FLONASE) 50 mcg/actuation [place], Suspension 1 spray by Each Nare route [...] medications for this visit. Subjective: Patient ID: Etta Bah is a 81 y.o. patient of Bobby Das MD. HPI: This is the initial follow-up visit for a 81-year-old patient with a previous history of mitral valve repair, now 20 years ago who was found during a hospitalization for critical limb ischemia to have atrial fibrillation with rapid ventricular response left ventricular systolic dysfunction HFrEF and coronary artery disease. Ejection fraction was below 30%. [...] angina. He has no palpitations and had noreal awareness of his atrial fibrillation. Today he saw vascular surgery and had his windy removed. They have removed any restrictions from him and tell him that he can walk without restriction. His only limitation other than his exertionaldyspnea that he relates is some mild dizziness [...] healing well. Markedly diminished left radial pulse. SUPERVISOR CUSTOMER COMPLAINT SERVICE: Normal mentation. Psych: Appropriate affect. Labs: Lab [...] therapy possibly including AV node ablation and TENNIS COACH-D. 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 My plan is long-term clopidogrel given theseverity of his peripheral arterial disease. Permanent atrial fibrillation He is on appropriate oral anticoagulation with rivaroxaban. He needs better rate control. I have added digoxin. Ultimately if I cannot control his rate and his ejection fraction remains low he will be referred to EP for consideration of AV node ablation and TENNIS COACH-D Patient Instructions ??? Your new medication is digoxin. The dose is .125 mg daily ??? Everything else stays the same ??? I will see you back in two months. You will have an echocardiogram prior to your visit. Thank you for the opportunity to participate in this patient's cardiovascular care. All questions were answered and I look forward to the next visit. Bel Blanco MD documented in this encounter Miscellaneous Notes * Assessment & Plan Note - Bel Blanco MD - 06/13/2022 10:23 AM EDT Associated Problem(s): Permanent atrial fibrillation He is on appropriate oral anticoagulation with rivaroxaban. He needs better rate control. I have added digoxin. Ultimately if I cannot control his rate and his ejection fraction remains low he will be referred to EP for consideration of AV node ablation and TENNIS COACH-D * Assessment & Plan Note - Bel Blanco MD - 06/13/2022 10:22 AM EDT Associated Problem(s): Coronary artery disease involving penobscot coronary artery of penobscot heart without angina pectoris His coronary disease [...] follow-up. My plan is long-term clopidogrel given theseverity of his peripheral arterial disease. * Assessment & Plan Note - Bel Blanco MD - 06/13/2022 10:21 AM EDT Associated [...] therapy possibly including AV node ablation and TENNIS COACH-D. documented in this encounter Plan of Treatment Not on file documented as of this encounter Results * ECHO COMPLETE (09/05/2022 1:25 PM EDT) EF 30 HEARTLAB SYSTEM Anatomical Region Laterality Modality Cardiac Other 09/05/2022 12:0 3 PM EDT Narrative 09/05/2022 2:11 PM EDT ? Echocardiogram Report Name: ETTA BAH ?Study Date: 09/05/2022 12:03 PMBP: 111/59 mmHg ? Patient Location: [id number] : 1940 ? Height: 173 cm ? Account: [id number] Age: 81 yrs ? Weight: 76 kg Gender: Male ?BSA: 1.9 m2 Ordering Physician: EBL BLANCO Referring Physician: BEL BLANCO Performed By: Salud Estrada Reason For Study: HFrEF Exam Location: [facility]. Interpretation Summary Technically limited imaging. Left [...] performed 05/16/22, findings are overall similar. Procedure Complete-[id number]. Satisfactory quality. Irregular rhythm. Left Ventricle Left [...] Date: :03 PMBP: 111/59 mmHg Patient Location: [id number] : 1940 Height: 173 cm Account: [id number] Age: 81 yrs Weight: 76 kg Gender: Male BSA: 1.9 m2 Ordering Physician: BEL BLANCO Referring Physician: BEL BLANCO Performed By: Salud Estrada Reason For Study: HFrEF Exam Location: [facility]. Interpretation Summary Technically limited imaging. Left [...] TTE performed 05/16/22,findings are overall similar. Procedure Complete-[id number]. Satisfactory quality. Irregular rhythm. 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
--- OUTSIDE RECORDS SUMMARY | 2024-09-17 01:31 | XMS_ITS | Encounter Summary ---
[place] [address] Care Team Providers Care Medical Claims Examiner Name Role Phone Bobby Das MD Primary Care Provider [phone] Reason for Visit * Auth/Cert Specialty Diagnoses / Procedures Referred By Cloby t Referred To Contact Diagnoses GIB (gastrointestinal bleeding) [place] [address] [facility] Referral ID Status Reason Start Date Expiration Date Visits Re quested Visits Authorized [id number] 1 1 Encounter Details Date Type Department Care Team (Late st Contact Info) Description 05/31/2022 4:03 PM EDT Anesthesia [place] [address] Elmer Johnson MD [facility] [address] ANESTHESIOLOGY [place] [address] Yogi Dawkins CRNA [facility] ANESTHESIOLOGY [place] [address] Anesthesia Record Procedure Summary Procedure Name Responsible Anesthesiologist Anesthesia Start Time Anesthesia Stop Time EGD, UPPER GI ENDOSCOPY (WRVU 2.09) (Trunk) Elmer Johnson MD 05/31/22 1603 05/31/22 1657 Events Date Time Event Comment 05/31/2022 1603 AN Verify 1603 Start 1603 An Start Data 1603 Quick Note First unit PRBC infusing when picked up 1608 Anesthesia Ready 1657 an stop data 1657 Recovery or ICU Handoff Lorie ent care was transferred to the destination unit staff after review of the patient's medical history, current anesthetic/surgical status and plan, according to the Provider Handoff Checklist. 1657 Stop 06/03/2022 0900 Meds Name Total Propofol 80 mg Propofol INF 254.43 mg Lactated Ringers 300 mL * Agents Name O2 Air N2O [...] groin; LDA not present upon assessment; 12/08/22; 1741 05/15/22 1408 by Jaylene Herring RN 12/08/22 1741 by Margy Knapp Incision 05/15/22; 1526; Left , lateral, lower; leg; LDA not present upon assessment; 12/08/22; 1741 05/15/22 1526 by Jaylene Herring RN 12/08/22 1741 by Margy Knapp Incision 05/15/22; 1527; Left , medial, lower; leg; LDA not present upon assessment; 12/08/22; 1741 05/15/22 1527 by Jaylene Herring RN 12/08/22 1741 by Margy Knapp (RETIRED) Peripheral IV Line - Single Lumen 05/31/22; 1026; median cubital vein (antecubital fossa), left; 20 gauge; lumen/catheter not patent, removed per policy/procedure, catheter/device intact; 06/02/22; 0400 05/31/22 1026 by Lissette Garcia RN 06/02/22 0400 by Raven Barbour RN (RETIRED) Peripheral IV Line - Single Lumen 05/31/22; 1300; median cubital vein (antecubital fossa), right; [id number] catheter system; 20 gauge; no longer indicated, removed per physician, catheter/device intact; 06/02/22; 1345 05/31/22 1300 by Angella Floyd RN 06/02/22 1345 by Trinidad Saenz RN documented in this encounter Social History [...] OR Notes * Anesthesia Postprocedure Evaluation - Elmer Johnson MD - 06/03/2022 9:11 AM EDT Department of Anesthesiology Post-procedure Note Patient: Koko Zamora Procedure Summary Date: 05/31/22 Room / Location: [facility] ENDO 3 / [facility] ENDOSCOPY Anesthesia Start: 1602 Anesthesia Stop: 1656 Procedures: EGD, UPPER GI ENDOSCOPY (N/A Trunk) EGD, W CONTROL OF BLEEDING, ANY METHOD Diagnosis: (melena) Surgeons: Giovani Ponce MD Responsible Provider: Elmer Johnson MD Anesthesia Type: MAC ASA Status: 3 All Anesthesia Providers: Anesthesiologist: Elmer Johnson MD DROP WIRE OPERATOR: Yogi Dawkins CRNA Vitals Value Taken Time BP 95/62 05/31/22 1720 Temp Pulse Resp 18 05/31/22 1720 SpO2 99 % 05/31/22 1720 Pain Level 0 05/31/22 1720 Patient Location: PACU[facility] Level of Consciousness: Awake and Alert Pain Management: Satisfactory Analgesia PONV: None Cardiovascular Status: At Baseline and Hemodynamically Stable Respiratory Status: At Baseline and Room Air Postoperative Fluid Status: Intravascular EUvolemia Possible Anesthetic Complications: NONE apparent at time of evaluation Final Primary Anesthesia Type: MAC (The anesthetic type performed was the same as planned.) Comments: * Anesthesia Preprocedure Evaluation - Elmer Johnson MD [...] IR Biopsy Spine 07/20/2019 Bobby Marshall MD [facility] INTERVENTIONL RAD ??? IR VERTEBROPLASTY LUMBAR MULTIPLE LEVELS 07/20/2019 IR Vertebroplasty Lumbar Multiple Levels 07/20/2019 Bobby Marshall MD [facility] INTERVENTIONL RAD ??? IR VERTEBROPLASTY THORACIC SINGLE LEVEL 10/25/2020 IR Vertebroplasty Thoracic Single Level 10/25/2020 Matt Chisholm MD [facility] INTERVENTIONL RAD ??? PRO EMBLC/THRMBC FEMORAL POPLITEAL AORTO-ILIAC ARTERY Left 05/15/2022 EMBOLECTOMY OR THROMBECTOMY, FEMOROPOPLITEAL, AORTOILIAC ARTERY BY LEG INCISION (WRVU 19.48) performed by Fito Summers MD at [facility] MAIN OR ??? PRO UPPER GI ENDOSCOPY, CTRL BLEED 05/31/2022 EGD, W CONTROL OF BLEEDING, ANY METHOD performed by Giovani Ponce MD at [facility] ENDOSCOPY ??? PRO UPPER GI ENDOSCOPY, DIAGNOSTIC N/A 05/31/2022 EGD, UPPER GI ENDOSCOPY performed by Giovani Ponce MD at [facility] ENDOSCOPY Social History Tobacco Use [...] 12.1 oz) Last edited 05/31/22 1545 by Currently displaying vitals information from multiple entries [...] such as major organ damage, awareness, severe allergicreactions, position-related nerve injuries, corneal abrasion/blindness and need blood transfusions.All questions were sought and answered. Consent was signed and placed in chart. Region - Other Informed Consent: Anesthetic plan and risks discussed with patient. Plan discussed with DROP WIRE OPERATOR. Anesthesia Screening documented in this encounter Plan of Treatment Not on file documented as of this encounter Visit Diagnoses Not on filedocumented in this encounter Administered Medications Inactive Administered Medications - up to 3 most recent administrations Medication Order MAR Action Action Date Dose Rate Site lactated ringers infusion Intravenous, CONTINUOUS PRN, Starting on Fri05/31/22 at 1603, Until Fri05/31/22 at 1657, Anesthesia Intra-op New Bag 05/31/2022 4:03 PM EDT propofoL (Diprivan) (10 mg/mL) infusion Intravenous, CONTINUOUS PRN, Starting on Fri05/31/22 at 1624, Until Fri05/31/22 at 1657, Anesthesia Intra-op, Routine New Bag 05/31/2022 4:24 PM EDT 100 mcg/kg/min 46.26 mL/hr propofoL (Diprivan) 10 mg/mL bolus injection (Anesthesia) Intravenous, PRN, Starting on Fri05/31/22 at 1624, Until Fri05/31/22 at 1657, Anesthesia Intra-op Given 05/31/2022 4:28 PM EDT 30 mg Given 05/31/2022 4:26 PM EDT 20 mg Given 05/31/2022 4:24 PM EDT 30 mg documented in this encounter Care Teams Medical Claims Examiner Relationship Specialty Start Date End Date Bobby Das MD [address] [place] [address] [place] [phone] PCP - General 10/02/10 documented as of this encounter
--- OUTSIDE RECORDS SUMMARY | 2024-09-17 01:32 | XMS_ITS | Encounter Summary ---
Author Organization [facility] [place] [address] Care Team Providers Care Ship'S Electronic Warfare Officer Name Role Phone Bobby Das MD Primary Care Provider [phone] Encounter Details Date Type Department Care Team (Late st Contact Info) Description 05/28/2022 Telephone [place] [phone] Dominique Bolivar, RN Social History Tobacco Use Types Packs/Day Years Used Date Smoking Tobacco: Some Days Cigarettes 0.5 50 Smokeless Tobacco: Never Alcohol Use Standard Drinks/Week Comments Yes 44 (1 standard drink = 0.6 oz pu re alcohol) Sex and Gender Information Value Date Recorded Sex Assigned at Not on file Gender Identity Not on file Sexual Orientation Not on file documented as of this encounter Miscellaneous Notes * Telephone Encounter - Dominique Bolivar RN - 05/28/2022 1:20 PM EDT This video games storywriter returned phone call due to 's concern with the patients low blood pressure. 05/15/2022: Left common femoral transverse arteriotomy and primary repair; Thromboembolectomy of the SFA, profunda, and common femoral artery; Reperfusion venous drainage of 250cc; Left lower extremity 4 compartment fasciotomies. ([place]) 05/20/2022: Coronary angiography, L heart catheterization, coronary ultrasound, coronary angioplasty mid LCX lesion, coronary stent insertion of ostial OM1 lesion. (Interventional cardiology). States since yesterday his BP has been upper 70s-80s over 40-50s. States his typical BP is 110s/65. States today he said he was a little bit lightheaded. States his appetite is good and he drinks 3-4quarts of water per day. States this morning she called his PCP who was out of office and was told by the RN to hold the morning dose of valsartan which she did. She was not given instructions as to what an acceptable BP value was in order to decide/if when valsartan could be resumed. Due to patient's cardiac history and symptoms of lightheadedness, this video games storywriter recommended the patient be evaluated. Discussed going to local ED ([facility]) where staff could also phone vascular and/or cardiac at [facility]- for planning. The patient agreed to do this after he has lunch. documented in this encounter Plan of Treatment Not on file documented as of this encounter Visit Diagnoses Not on filedocumented in this encounter Care Teams Ship'S Electronic Warfare Officer Relationship Specialty Start Date End Date Bobby Das MD [address] [place] [address] [place] [phone] PCP - General 10/02/10 documented as of this encounter
--- OUTSIDE RECORDS SUMMARY | 2024-09-17 01:32 | XMS_ITS | Encounter Summary ---
[place] [address] Care Team Providers Care Nick Setter Name Role Phone Abby Das MD Primary Care Provider Reason for Visit * Reason Comments Dizziness * Auth/Cert Specialty Diagnoses / Procedures Referred By Colby t Referred To Contact Diagnoses GIB (gastrointestinal bleeding) Mata Fish MD [facility] [place] [address] [facility] Referral ID Status Reason Start Date Expiration Date Visits Re quested Visits Authorized [id number] 1 1 Encounter Details Date Type Department Care Team (Late st Contact Info) Description 05/31/2022 3:48 PM EDT - 05/31/2022 4:18 PM EDT [place] [address] Giovani Ponce MD [facility] [place] [address] EGD, UPPER GI ENDOSCOPY (WRVU 2.09) Social [...] 36.6 ??C (97.9 ??F) 05/31/2022 3:33 PM ED T Respiratory Rate 14 05/31/2022 3:45 PM EDT Oxygen Saturation 98% 05/31/2022 3:45 PM EDT Inhaled Oxygen Concentration - - Weight 77.1 kg (170 lb) 05/31/2022 10:18 AM EDT Height 172.7 cm (5' 8) 05/31/2022 10:18 AM EDT Body Mass Index 25.85 05/31/2022 10:18 AM EDT documented in this encounter Discharge Summaries * Arpita Valle MD - 06/02/2022 12:48 PM EDT [facility] Medicine - Discharge Summary Patient [...] put in 05/20 and recent embolectomy on 7/6 for arterial clot in the left lower [...] switching to a differentblood thinner with the yard motor operator outpatient. Call your doctor or seek [...] to a different blood thinner with your yard motor operator as an outpatient Stopped Medications - Aspirin - Valsartan - Speak with your yard motor operator about the timing of restarting this Follow-up Appointments Future Appointments Date Time Provider Department Center 06/10/2022 11:00 AM Loretta Cohen MD [facility] 06/13/2022 7:30 AM Edson [place]os [place] [facility] VAS LAB [facility] 06/13/2022 8:00 AM Fito Summers MD [facility] V SURG [facility] 06/13/2022 10:00 AM Alan Reid MD [facility] CARD 4A [facility] Your Inpatient Medical Team at [facility] Name(s) of your inpatient provider(s): Dr. John Ames For questions regarding issues relating to your hospitalization on the Hospital Medicine Service, please contact your inpatient physician through the [facility] Internal Wholesaler [phone]. Issues after hours and on weekends will be handled by the Hospitalist staff on-call. Your Primary Care Provider Abby Das MD [phone] Future Appointments and Orders Future Appointments and Orders Future Appointments Provider Department Dept Phone 06/10/2022 11:00 AM Loretta Cohen MD Dermatology [facility] [place] Arrive at: Exhibitions And Collections Manager [address] [place] [address] 06/13/2022 7:30 AM Edson Lagos [place] V[facility] Lab at [facility] Arrive at: Exhibitions And Collections Manager Area [phone] 06/13/2022 8:00 AM Fito Summers MD Vascular Surgery at [facility] Arrive at: Exhibitions And Collections Manager Area 06/13/2022 10:00 AM Alan Reid MD Cardiology at [facility] Arrive at: Exhibitions And Collections Manager Area [phone] For questions regarding this document or issues relating to this hospitalization on the Medical Service, please contact your inpatient physician through the [facility] Internal Wholesaler . Issues afterhours and on weekends will [...] switching to a differentblood thinner with the yard motor operator outpatient. Call your doctor or seek [...] to a different blood thinner with your yard motor operator as an outpatient Stopped Medications - Aspirin - Valsartan - Speak with your yard motor operator about the timing of restarting this Follow-up Appointments Future Appointments Date Time Provider Department Center 06/10/2022 11:00 AM Loretta Cohen MD [facility] 06/13/2022 7:30 AM Edson [place] [facility] VAS LAB [facility] 06/13/2022 8:00 AM Fito Summers MD [facility] V SURG [facility] 06/13/2022 10:00 AM Alan Reid MD [facility] CARD 4A [facility] Your Inpatient Medical Team at [facility] Name(s) of your inpatient provider(s): Dr. John Ames For questions regarding issues relating to your hospitalization on the Hospital Medicine Service, please contact your inpatient physician through the [facility] Internal Wholesaler [phone]. Issues after hours and on weekends will be handled by the Hospitalist staff on-call. Your Primary Care Provider Abby Das MD [phone] documented in this encounter Medications at Time of Discharge Medication Sig Dispensed Refills Start Date End Date fluticasone propionate (FLONASE) 50 mcg/actuation [place], Suspension 1 spray by Each Nare route [...] spent >30 minutes (Day of Discharge Code 72067) involved in the final examination of the [...] were not included. Hospital Medicine Progress Note [place] Team - Pager #[phone] Admit Date: 05/31/2022 Name: Koko Zamora : [...] cardiology to discuss antiplatelet (ISO bleed and penitentiary), following. ?? #CAD s/p stenting recently #HFrEF [...] Kurt Ames MD Internal Medicine, PGY-1 Medicine [place] Team #[id number] Associated attestation - John Jolley MD - 06/01/2022 5:02 PM EDT [facility] Medicine -- Attending Progress Note Please [...] midnights or is on the [facility] inpatient only procedure list (status C) due to: GI Bleeding documented in this encounter H&P Notes * Yamilet Victor MD - 05/31/2022 4:33 PM EDT Images from the original note were not included. [facility] Medicine (#[id number]) History and Physical Patient info: Name: Koko Zamora : 1940 PCP: Abby aDs MD PCP phone number: [phone] Date of Admission: 05/31/2022 ( Hospital Day [...] IR Biopsy Spine 07/20/2019 Abby Marshall MD [facility] INTERVENTIONL RAD ??? IR VERTEBROPLASTY LUMBAR MULTIPLE LEVELS 07/20/2019 IR Vertebroplasty Lumbar Multiple Levels 07/20/2019 Abby Marshall MD [facility] INTERVENTIONL RAD ??? IR VERTEBROPLASTY THORACIC SINGLE LEVEL 10/25/2020 IR Vertebroplasty Thoracic Single Level 10/25/2020 Matt Chisholm MD [facility] INTERVENTIONL RAD ??? PRO EMBLC/THRMBC FEMORAL POPLITEAL AORTO-ILIAC ARTERY Left 05/15/2022 EMBOLECTOMY OR THROMBECTOMY, FEMOROPOPLITEAL, AORTOILIAC ARTERY BY LEG INCISION (WRVU 19.48) performed by Fito Summers MD at [facility] MAIN OR No family history on [...] 11 ??? fluticasone propionate (FLONASE) 50 mcg/actuation [place], Suspension as needed. ??? fluorouraciL (EFUDEX) 5 [...] Gas) No results found for: PHART, PO2ART, KWN4WGK, NBS2HFZ Microbiology: N/A Pertinent radiology/diagnostic studies: Recent prior [...] PGY-3 05/31/2022 [facility] Medicine # [id number] Attending Staff [...] 05/31/2022 3:58 PM EDT Norepinephrine pulled from [facility] for soft BPs. Upon arrival to [...] AM EDT Pt brought to XR by lead radiation therapist * Brittany Ramirez MD - 05/31/2022 10:40 [...] questions please contact the health health care facilities inspector that requested your imaging first. Chest PA [...] questions please contact the health health care facilities inspector that requested your imaging first. Course as [...] MD Resident 05/31/22 1605 Associated attestation - Dominique Hinds MD - [...] soft blood pressures, MD made aware. 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 Patient [...] included. [facility] [place] [address] INPATIENT CARDIOLOGY CONSULT NOTE Date of Consultation: 06/01/2022 Admit Date: 05/31/2022 Place of Service: IS86/IS86-A Referring Attending: DOMINIQUE HINDS COLEMAN W FRIEDMAN, HARLEY P Responsible Awning Maker: Dr. Rizo Hospital Day 1 day Reason [...] LCX and LCx stent) who presented to [facility] on 05/31/2022 for GI bleed. Patient presented [...] IR Biopsy Spine 07/20/2019 Abby Marshall MD [facility] INTERVENTIONL RAD ??? IR VERTEBROPLASTY LUMBAR MULTIPLE LEVELS 07/20/2019 IR Vertebroplasty Lumbar Multiple Levels 07/20/2019 Abby Marshall MD [facility] INTERVENTIONL RAD ??? IR VERTEBROPLASTY THORACIC SINGLE LEVEL 10/25/2020 IR Vertebroplasty Thoracic Single Level 10/25/2020 Matt Chisholm MD [facility] INTERVENTIONL RAD ??? PRO EMBLC/THRMBC FEMORAL POPLITEAL AORTO-ILIAC ARTERY Left 05/15/2022 EMBOLECTOMY OR THROMBECTOMY, FEMOROPOPLITEAL, AORTOILIAC ARTERY BY LEG INCISION (WRVU 19.48) performed by Fito Summers MD at [facility] MAIN OR ALLERGIES: Allergies Allergen Reactions [...] time ??? fluticasone propionate (FLONASE) 50 mcg/actuation [place], Suspension 1 spray by Each Nare route [...] focal deficit ECG: Echocardiogram: 05/16/2022 [facility] 05/20/2022 Coronary Angiography: Dominance: Right Left Main [...] 3.5 guiding catheter and a 3.[address] 20 Mhz. Imaging was successful. Image [...] A premounted 2.75 x 30 mm [place]y [place] (AMPARO) was deployed with a maximum inflation [...] may require modification of this regimen. Consult [facility] Interventional Cardiology for questions. The 1 year [...] Unknown source. has had a [facility] with stent placed and revascularization of left [...] questions please contact the health health care facilities inspector that requested your imaging first. [employer] 48 [...] questions please contact the health health care facilities inspector that requested your imaging first. Recent Labs [...] ischemic systolic heart failure (recent [facility] 05/20/2022 with 2V disease OM1 and distal RCA, had ostial LCX and LCx stent), recent admission for acute limb ischemia LLE, where he had left common femoral transverse arteriotomy and primary repair, thromboembolectomy of the SFA, profunda and common femoral artery with 4 compartment fasciotomies, who presented to [facility] on 05/31/2022 for GI bleed. Cardiology consulted [...] attestation for additional insight. Rossy Anaya MD [facility] Supervisor [employer] Mill, PGY-5 Inpatient Cardiology Consults Pager #[phone] Please check [facility] for on-call cardiology consults [...] A&Ox 4. On room air. VSS. 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 Adequate urine output, urinal at [...] surrogate would be surrogate decision maker per [place] surrogate decision making law. (Only good for 180 days) Any patient receiving care in [place] must abide by [place] law. The hierarchy [...] The agent with financial power of supervisor heat treating or a conservator appointed in accordance with [...] walker - rolling Home Address confirmed as: [address] [place] [phone] Social & Family Supports: All names listed below confirmed with patient as current and correct Extended Emergency Contact Information Primary Emergency Contact: Ursula Zamora Address: [address] [place] [phone] [facility] Relation: Spouse Current Care Provided by: self [...] Type: *No Product type* / Secondary Insurance: [facility] Secondary Insurance? (Only Medicare A&B): Yes ; Prescription Coverage: Yes Preferred Pharmacy: [id number] [address] [place] [address] [place] [id number] [place] Status: Patient is a : No Primary Care Provider: Abby Das MD [phone] Patient/Caregiver Goals of Treatment: Patient plans to [...] with transition of care planning. ASH [place] Buyer Internship [facility] Medicine/ Medical Specialties Pager- [...] OUTCOME EVALUATION: * Consult Note - Lonnie Good RPH - [...] Operative Note Patient Name: Koko Zamora : [id number] MR#: [id number] Case Date: 05/31/2022 Surgeon: Surgeon(s) and Role: [...] stomach. He has had colonoscopies before in [place] - notes first ever he had [...] IR Biopsy Spine 07/20/2019 Abby Marshall MD [facility] INTERVENTIONL RAD ??? IR VERTEBROPLASTY LUMBAR MULTIPLE LEVELS 07/20/2019 IR Vertebroplasty Lumbar Multiple Levels 07/20/2019 Abby Marshall MD [facility] INTERVENTIONL RAD ??? IR VERTEBROPLASTY THORACIC SINGLE LEVEL 10/25/2020 IR Vertebroplasty Thoracic Single Level 10/25/2020 Matt Chisholm MD [facility] INTERVENTIONL RAD ??? PRO EMBLC/THRMBC FEMORAL POPLITEAL AORTO-ILIAC ARTERY Left 05/15/2022 EMBOLECTOMY OR THROMBECTOMY, FEMOROPOPLITEAL, AORTOILIAC ARTERY BY LEG INCISION (WRVU 19.48) performed by Fito Summers MD at [facility] MAIN OR SOCIAL HX: Social History [...] sounds, tympanic to percussion RECTAL: performed with elastic attacher zigzag present, no overt masses, fissures, external hemorrhoids, [...] questions please contact the health health care facilities inspector that requested your imaging first. Abdomen & [...] PM EDT Upper Gi Endoscopy, Ctrl Bleed ([id number]) 05/31/2022 4:05 PM EDT melena Upper GI Endoscopy, Diagnostic ([id number]) 05/31/2022 4:05 PM EDT melena UPPER GI [...] 8:20 AM EDT) Neutrophil % 61.3 % [facility] Neutrophil Absolute 4.44 1.70 - 6.10 x10(3)/mc L [facility] Lymph % 25.2 % [facility] Lymphocytes Abs 1.8 0.9 - 3.2 x10(3)/[facility] Monocyte % 10.0 % [facility] Monocyte Abs 0.7 0.3 - 0.9 x10(3)/[facility] Eos % 2.1 % [facility] Eosinophils Abs 0.2 0.0 - 0.4 x10(3)/[facility] Basophil % 0.7 % [facility] Baso Absolute 0.0 0.0 - 0.1 x10(3)/[facility] Immature Gran % 0.70 % [facility] Comment: Immature granulocytes(IG's)percentage and absolute count will include metamyelocytes, myelocytes, and promyelocytes. Blood smears from CBCs yielding IG's will be scanned manually for concordance. If this scan disagrees with the automated IG or if promyelocytes are noted, a manual differential will be performed. Immature Gran Absolute 0.05(H) 0.00 - 0.04 x10(3)/[facility] Blood 06/02/2022 8:20 AM EDT 06/02/2022 8:25 AM EDT Narrative Resulting Agency Comment Spec In Lab Kurt Ames MD HEMATOLOGY ORDERABL ES [facility] [place] [address] * (ABNORMAL) Hemogram (06/02/2022 8:20 AM EDT) White Blood Cell 7.2 4.0 - 9.5 x10(3)/[facility] Red Blood Cell 2.74(L) 4.58 - 5.54 x10(6)/[facility] Hemoglobin 8.7(L) 13.7 - 16.5 g/dL [facility] Hematocrit 25.7(L) 40.5 - 48.5 % [facility] Mean Cell Volume 93.8(H) 82.9 - 93.1 fL [facility] Mean Cell Hemoglobin 31.8 27.5 - 32.1 pg [facility] Mean Cell Hemoglobin Concentration 33.9 32.0 - 35.7 g/dL [facility] Platelet 260 145 - 357 x10(3)/mc L [facility] RDW Standard Deviation 51.0(H) 36.0 - 45.0 fL [facility] RDW coefficient of variation 14.9(H) 11.4 - 13.8 % [facility] Mean Platelet Volume 10.0 7.6 - 12.9 fL [facility] NRBC% auto 0.0 % [facility] NRBC Absolute 0.000 0.000 - 0.000 x10(3)/mc L [facility] Blood 06/02/2022 8:20 AM EDT 06/02/2022 8:25 AM EDT Narrative Resulting Agency Comment Spec In Lab Kurt Ames MD HEMATOLOGY ORDERABL ES [facility] [place] [address] * Heparin (unfractionated) Level (06/02/2022 6:30 AM EDT) UF Heparin 0.39 IU/mL [facility] Comment: Heparin (anti-Xa) levels should [...] MD HEMATOLOGY ORDERAB LES Performing Organization Address [facility] Co de Phone Number [facility] [place] [address] * Heparin (unfractionated) Level (06/02/2022 12:30 AM EDT) UF Heparin 0.81 IU/mL [facility] Comment: Heparin (anti-Xa) levels should [...] MD HEMATOLOGY ORDERAB LES Performing Organization Address [facility] de Phone Number [facility] [place] [address] * Magnesium (06/02/2022 12:30 AM EDT) Magnesium 0.83 0.69 - 1.07 mmol/L [facility] Blood 06/02/2022 12:3 0 AM EDT 06/02/2022 12:40 AM EDT Narrative Resulting Agency Comment Spec In Lab Yamilet Victor MD CHEMISTRY ORDERABL ES Performing Organization Address [facility]/State/ZIP Co de Phone Number [facility] [place] [address] * (ABNORMAL) Basic Metabolic Panel (non-fasting) (06/02/2022 12:30 AM EDT) Glucose 151 65 - 199 mg/dL [facility] Comment:Diabetes: >=200 mg/d L plus symptoms Blood Urea Nitrogen 12 10 - 20 mg/dL [facility] Creatinine 0.71(L) 0.80 - 1.50 mg/dL [facility] [...] questions. Chloride 108(H) 98 - 107 mmol/L [facility] Carbon Dioxide 24 22 - 31 mmol/L [facility] Anion Gap 10 5 - 15 mmol/L [facility] Calcium 8.1(L) 8.5 - 10.5 mg/dL [facility] Est Glomerular Filtration Rate 93 >=60 mL/min/1. 73 m?? [facility] Comment: This [...] MD CHEMISTRY ORDERABL ES Performing Organization Address City/[facility]/ZIP Co de Phone Number [facility] [place] [address] * (ABNORMAL) Differential, Automated (06/01/2022 7:29 PM EDT) Neutrophil % 68.8 % [facility] Neutrophil Absolute 5.34 1.70 - 6.10 x10(3)/mc L [facility] Lymph % 19.6 % [facility] Lymphocytes Abs 1.5 0.9 - 3.2 x10(3)/ L [facility] Monocyte % 8.1 % [facility] Monocyte Abs 0.6 0.3 - 0.9 x10(3)/ L [facility] Eos % 1.8 % [facility] Eosinophils Abs 0.1 0.0 - 0.4 x10(3)/ L [facility] Basophil % 0.8 % [facility] Baso Absolute 0.1 0.0 - 0.1 x10(3)/ L [facility] Immature Gran % 0.90 % [facility] Comment: Immature granulocytes(IG's)percentage and absolute count will include metamyelocytes, myelocytes, and promyelocytes. Blood smears from CBCs yielding IG's will be scanned manually for concordance. If this scan disagrees with the automated IG or if promyelocytes are noted, a manual differential will be performed. Immature Gran Absolute 0.07(H) 0.00 - 0.04 x10(3)/ L [facility] Blood 06/01/2022 7:29 PM EDT 06/01/2022 7:29 PM EDT Narrative Resulting Agency Comment Spec In Lab Kurt Ames MD HEMATOLOGY ORDERABL ES Performing Organization Address City/[facility]/ZIP Co de Phone Number [facility] [place] [address] * (ABNORMAL) Hemogram (06/01/2022 7:29 PM EDT) White Blood Cell 7.8 4.0 - 9.5 x10(3)/ L [facility] Red Blood Cell 2.65(L) 4.58 - 5.54 x10(6)/mc L [facility] Hemoglobin 8.3(L) 13.7 - 16.5 g/dL [facility] Hematocrit 24.8(L) 40.5 - 48.5 % [facility] Mean Cell Volume 93.6(H) 82.9 - 93.1 fL [facility] Mean Cell Hemoglobin 31.3 27.5 - 32.1 pg [facility] Mean Cell Hemoglobin Concentration 33.5 32.0 - 35.7 g/dL [facility] Platelet 263 145 - 357 x10(3)/[facility] RDW Standard Deviation 52.8(H) 36.0 - 45.0 [facility] RDW coefficient of variation 15.4(H) 11.4 - 13.8 % [facility] Mean Platelet Volume 10.4 7.6 - 12.9 fL [facility] NRBC% auto 0.0 % [facility] NRBC Absolute 0.000 0.000 - 0.000 x10(3)/[facility] Blood 06/01/2022 7:29 PM EDT 06/01/2022 7:29 PM EDT Narrative Resulting Agency Comment Spec In Lab Kurt Ames MD HEMATOLOGY ORDERABL ES [facility] [place] [address] * Heparin (unfractionated) Level (06/01/2022 7:29 PM EDT) UF Heparin 0.81 IU/mL [facility] Comment: Heparin (anti-Xa) levels should [...] Lab Yamilet Victor MD HEMATOLOGY ORDERAB LES [facility] [place] [address] * (ABNORMAL) Heparin (unfractionated) Level (06/01/2022 11:32 AM EDT) UF Heparin 1.05(Crit ical) IU/mL [facility] Comment: Critical Result called [...] MD HEMATOLOGY ORDERAB LES Performing Organization Address City/[facility]/ZIP Co de Phone Number [facility] [place] [address] * (ABNORMAL) Differential, Automated (06/01/2022 5:56 AM EDT) Neutrophil % 62.7 % [facility] Neutrophil Absolute 6.11(H) 1.70 - 6.10 x10(3)/mc L [facility] Lymph % 23.5 % [facility] Lymphocytes Abs 2.3 0.9 - 3.2 x10(3)/ L [facility] Monocyte % 10.0 % [facility] Monocyte Abs 1.0(H) 0.3 - 0.9 x10(3)/ L [facility] Eos % 2.2 % [facility] Eosinophils Abs 0.2 0.0 - 0.4 x10(3)/ L [facility] Basophil % 0.9 % [facility] Baso Absolute 0.1 0.0 - 0.1 x10(3)/mc L [facility] Immature Gran % 0.70 % [facility] Comment: Immature granulocytes(IG's)percentage and absolute count will include metamyelocytes, myelocytes, and promyelocytes. Blood smears from CBCs yielding IG's will be scanned manually for concordance. If this scan disagrees with the automated IG or if promyelocytes are noted, a manual differential will be performed. Immature Gran Absolute 0.07(H) 0.00 - 0.04 x10(3)/ L [facility] Blood 06/01/2022 5:56 AM EDT 06/01/2022 6:05 AM EDT Narrative Resulting Agency Comment Spec In Lab Arpita Valle MD HEMATOLOGY ORDERABLE S [facility] [place] [address] * (ABNORMAL) Hemogram (06/01/2022 5:56 AM EDT) White Blood Cell 9.7(H) 4.0 - 9.5 x10(3)/mc L [facility] Red Blood Cell 2.83(L) 4.58 - 5.54 x10(6)/mc L [facility] Hemoglobin 9.0(L) 13.7 - 16.5 g/dL [facility] Hematocrit 26.7(L) 40.5 - 48.5 % [facility] Mean Cell Volume 94.3(H) 82.9 - 93.1 fL [facility] Mean Cell Hemoglobin 31.8 27.5 - 32.1 pg [facility] Mean Cell Hemoglobin Concentration 33.7 32.0 - 35.7 g/dL [facility] Platelet 250 145 - 357 x10(3)/mc L [facility] RDW Standard Deviation 54.3(H) 36.0 - 45.0 fL [facility] RDW coefficient of variation 15.9(H) 11.4 - 13.8 % [facility] Mean Platelet Volume 10.5 7.6 - 12.9 fL [facility] NRBC% auto 0.0 % [facility] NRBC Absolute 0.000 0.000 - 0.000 x10(3)/mc L [facility] Blood 06/01/2022 5:56 AM EDT 06/01/2022 6:05 AM EDT Narrative Resulting Agency Comment Spec In Lab Arpita Valle MD HEMATOLOGY ORDERABLE S Performing Organization Address City/[facility]/ZIP Co de Phone Number [facility] [place] [address] * Heparin (unfractionated) Level (06/01/2022 4:30 AM EDT) UF Heparin 0.68 IU/mL [facility] Comment: Heparin (anti-Xa) levels should [...] MD HEMATOLOGY ORDERAB LES Performing Organization Address City/State/[facility] Co de Phone Number [facility] [place] [address] * (ABNORMAL) Urinalysis with reflex Culture (06/01/2022 4:00 AM EDT) Pathologist [facility], [place] Glucose, Urine Dipstick 500(Critical ) Negative mg/dL [facility] Comment: Urinalysis result NOT critical without a combination of Glucose greater than or equal to 500 mg/dL AND Ketones greater than or equal to 80 mg/dL Protein, Urine Dipstick Negative Negative mg/dL [facility] Bilirubin, Urine Dipstick Negative Negative mg/dL [facility] Comment: Clinical correlation required for positive Urine Bilirubin results as false positive may occur with some drugs and drug related products. If a false positive is suspected a serum total bilirubin should be considered if clinically indicated. Urobilinogen, Urine Dipstick Normal Normal mg/dL [facility] pH, Urn (dipstick) 6.0 5.0 - 8.0 [facility] Blood, Urine Dipstick Negative Negative mg/dL [facility] Ketone, Urine Dipstick Negative Negative mg/dL [facility] Nitrite, Urine Dipstick Negative Negative [facility] Leukocytes, Urine Dipstick Negative Negative mcL [facility] Appearance, Urine Dipstick Clear Clear [facility] Specific [place] Urine Automated >=1.030(A) 1.005 - 1.030 [facility] Color, Urine Dipstick Yellow Yellow [facility] Reflex to Culture No [facility] Clean Catch Urine 06/01/2022 4:00 AM EDT 06/01/2022 4:26 AM EDT Narrative Resulting Agency Comment Spec In Lab Yamilet Victor MD URINE ORDERABLES Performing Organization Address [facility] Phone Number [facility] [place] [address] * Magnesium (06/01/2022 1:00 AM EDT) Magnesium 0.93 0.69 - 1.07 mmol/L [facility] Blood 06/01/2022 1:00 AM EDT 06/01/2022 1:37 AM EDT Narrative Resulting Agency Comment Spec In Lab Yamilet Victor MD CHEMISTRY ORDERABL ES Performing Organization Address [facility] [place] Phone Number [facility] [place] [address] * (ABNORMAL) Basic Metabolic Panel (non-fasting) (06/01/2022 1:00 AM EDT) Glucose 148 65 - 199 mg/dL [facility] Comment:Diabetes: >=200 mg/d L plus symptoms Blood Urea Nitrogen 23(H) 10 - 20 mg/dL [facility] Creatinine 0.78(L) 0.80 - 1.50 mg/dL [facility] [...] questions. Chloride 108(H) 98 - 107 mmol/L [facility] Carbon Dioxide 24 22 - 31 mmol/L [facility] Anion Gap 9 5 - 15 mmol/L [facility] Calcium 8.6 8.5 - 10.5 mg/dL [facility] Est Glomerular Filtration Rate 91 >=60 mL/min/1. 73 m?? [facility] Comment: This [...] Lab Yamilet Victor MD CHEMISTRY ORDERABL ES [facility] [place] [address] * (ABNORMAL) Differential, Automated (06/01/2022 12:00 AM EDT) Neutrophil % 64.6 % [facility] Neutrophil Absolute 5.60 1.70 - 6.10 x10(3)/mc L [facility] Lymph % 22.4 % [facility] Lymphocytes Abs 1.9 0.9 - 3.2 x10(3)/mc L [facility] Monocyte % 9.5 % [facility] Monocyte Abs 0.8 0.3 - 0.9 x10(3)/[facility] Eos % 2.1 % [facility] Eosinophils Abs 0.2 0.0 - 0.4 x10(3)/[facility] Basophil % 0.6 % [facility] Baso Absolute 0.0 0.0 - 0.1 x10(3)/[facility] Immature Gran % 0.80 % [facility] Comment: Immature granulocytes(IG's)percentage and absolute count will include metamyelocytes, myelocytes, and promyelocytes. Blood smears from CBCs yielding IG's will be scanned manually for concordance. If this scan disagrees with the automated IG or if promyelocytes are noted, a manual differential will be performed. Immature Gran Absolute 0.07(H) 0.00 - 0.04 x10(3)/[facility] Blood 06/01/2022 06/01/2022 12: 10 AM EDT Narrative Resulting Agency Comment Spec In Lab Arpita Valle MD HEMATOLOGY ORDERABLE S [facility] [place] [address] * (ABNORMAL) Hemogram (06/01/2022 12:00 AM EDT) White Blood Cell 8.7 4.0 - 9.5 x10(3)/[facility] Red Blood Cell 2.77(L) 4.58 - 5.54 x10(6)/[facility] Hemoglobin 8.6(L) 13.7 - 16.5 g/dL [facility] Hematocrit 25.7(L) 40.5 - 48.5 % [facility] Mean Cell Volume 92.8 82.9 - 93.1 fL [facility] Mean Cell Hemoglobin 31.0 27.5 - 32.1 pg [facility] Mean Cell Hemoglobin Concentration 33.5 32.0 - 35.7 g/dL [facility] Platelet 260 145 - 357 x10(3)/mc L [facility] RDW Standard Deviation 51.9(H) 36.0 - 45.0 fL [facility] RDW coefficient of variation 15.5(H) 11.4 - 13.8 % [facility] Mean Platelet Volume 10.4 7.6 - 12.9 fL [facility] NRBC% auto 0.0 % [facility] NRBC Absolute 0.000 0.000 - 0.000 x10(3)/mc L [facility] Blood 06/01/2022 06/01/2022 12: 10 AM EDT Narrative Resulting Agency Comment Spec In Lab Arpita Valle MD HEMATOLOGY ORDERABLE S [facility] [place] [address] * (ABNORMAL) Differential, Automated (05/31/2022 9:17 PM EDT) Neutrophil % 59.6 % [facility] Neutrophil Absolute 3.98 1.70 - 6.10 x10(3)/mc L [facility] Lymph % 27.5 % [facility] Lymphocytes Abs 1.8 0.9 - 3.2 x10(3)/mc L [facility] Monocyte % 9.1 % [facility] Monocyte Abs 0.6 0.3 - 0.9 x10(3)/mc L [facility] Eos % 2.4 % [facility] Eosinophils Abs 0.2 0.0 - 0.4 x10(3)/mc L [facility] Basophil % 0.7 % [facility] Baso Absolute 0.0 0.0 - 0.1 x10(3)/mc L [facility] Immature Gran % 0.70 % [facility] Comment: Immature granulocytes(IG's)percentage and absolute count will include metamyelocytes, myelocytes, and promyelocytes. Blood smears from CBCs yielding IG's will be scanned manually for concordance. If this scan disagrees with the automated IG or if promyelocytes are noted, a manual differential will be performed. Immature Gran Absolute 0.05(H) 0.00 - 0.04 x10(3)/ L [facility] Blood 05/31/2022 9:17 PM EDT 05/31/2022 9:25 PM EDT Narrative Resulting Agency Comment Spec In Lab Arpita Valle MD HEMATOLOGY ORDERABLE S [facility] [place] [address] * (ABNORMAL) Hemogram (05/31/2022 9:17 PM EDT) White Blood Cell 6.7 4.0 - 9.5 x10(3)/[facility] Red Blood Cell 2.74(L) 4.58 - 5.54 x10(6)/mc L [facility] Hemoglobin 8.5(L) 13.7 - 16.5 g/dL [facility] Hematocrit 25.7(L) 40.5 - 48.5 % [facility] Mean Cell Volume 93.8(H) 82.9 - 93.1 fL [facility] Mean Cell Hemoglobin 31.0 27.5 - 32.1 pg [facility] Mean Cell Hemoglobin Concentration 33.1 32.0 - 35.7 g/dL [facility] Platelet 233 145 - 357 x10(3)/ L [facility] RDW Standard Deviation 51.9(H) 36.0 - 45.0 fL [facility] RDW coefficient of variation 15.3(H) 11.4 - 13.8 % [facility] Mean Platelet Volume 10.3 7.6 - 12.9 fL [facility] NRBC% auto 0.0 % [facility] NRBC Absolute 0.000 0.000 - 0.000 x10(3)/mc L [facility] Blood 05/31/2022 9:17 PM EDT 05/31/2022 9:25 PM EDT Narrative Resulting Agency Comment Spec In Lab Arpita Valle MD HEMATOLOGY ORDERABLE S [facility] [place] [address] * Transfuse RBC (05/31/2022 7:36 PM EDT) Dominique Hinds MD NURSING TREATMENT OR DERABLES - BLOOD ADMIN * Transfuse RBC (05/31/2022 7:36 PM EDT) Dominique Hinds MD NURSING TREATMENT OR DERABLES - BLOOD ADMIN * UPPER GI ENDOSCOPY (05/31/2022 3:37 PM EDT) [facility] UPPER GI ENDOSCOPY [facility] ___ Procedure Date: 05/31/2022 3:37 PM ? Patient Name: Koko Zamora ? Date of : 1940 ? Age: 81 ? Order #: [id number] ? Instrument Name: [id number] ? ___ Procedure: ? Upper GI endoscopy Indications: ? Melena, Suspected upper ? gastrointestinal bleeding Providers: ? Giovani Ponce, Torrey Gannon, ? Vani Wei RN, Juhi Fajardo, ? Alannah Hutchinson, [employer] Plate Assembler Referring MD: ?Dominique Hinds Medicines: ? Propofol [...] Procedure Code(s): ? --- Professional --- ? 55550, Esophagogastroduode noscopy, ? flexible, transoral; with control [...] in this report are preliminary and upon hospital security officer review may be revised to meet [...] questions please contact the health health care facilities inspector that requested your imaging first. ? Narrative 05/31/2022 2:39 PM EDT EXAMINATION: CT ABDOMEN AND PELVIS WWO CONTRAST (GI BLEED) CLINICAL HISTORY: Significant Hb drop. Unknown source. has had a C with stent [...] Hb drop. Unknown source. has had a LHC withstent placed and revascularization of left lower [...] have questions please contactthe health health care facilities inspector that requested your imaging first. Dominique Hinds MD IMG CT ORDERABLES * Type and Screen Validity (05/31/2022 1:43 PM EDT) [facility] T&S only valid at [facility] LABORATORY Comment:This Type and Screen result is only valid at the [facility] Blood 05/31/2022 1:43 PM EDT 05/31/2022 1:57 PM EDT Narrative Resulting Agency Comment Spec In Lab Dominique Hinds MD BLOOD BANK LAB ORDER NICK Performing Organization Address [facility] Co de Phone Number [facility] [place] [address] * ABORH Recheck Status (05/31/2022 1:43 PM EDT) [facility] ABORH Type Recheck Completed [facility] Blood 05/31/2022 1:43 PM EDT 05/31/2022 1:57 PM EDT Narrative Resulting Agency Comment Spec In Lab Dominique Hinds MD BLOOD BANK LAB ORDER NICK Performing Organization Address [facility]/ZIP Co de Phone Number [facility] [place] [address] * Antibody screen (05/31/2022 1:43 PM EDT) [facility] Ab Screen Interp Negative [facility] Expires at [id number] on: 06/03/2022 [facility] Blood 05/31/2022 1:43 PM EDT 05/31/2022 1:57 PM EDT Narrative Resulting Agency Comment Spec In Lab Dominique Hinds MD BLOOD BANK LAB ORDER NICK [facility] [place] [address] * ABO/Rh Typing (05/31/2022 1:43 PM EDT) ABORH Type O Pos [facility] Blood 05/31/2022 1:43 PM EDT 05/31/2022 1:57 PM EDT Narrative Resulting Agency Comment Spec In Lab Dominique Hinds MD BLOOD BANK LAB ORDER NICK Performing Organization Address [facility]/ZIP Co de Phone Number [facility] [place] [address] * Prepare RBC (05/31/2022 1:35 PM EDT) Dispensed? Yes [facility] Blood 05/31/2022 1:35 PM EDT 05/31/2022 1:30 PM EDT Dominique Hinds MD BLOOD BANK PRODUCT O RDERABLES Performing Organization Address City/[facility]/ZIP Co de Phone Number [facility] [place] [address] * Prepare RBC (05/31/2022 1:25 PM EDT) Dispensed? Yes [facility] Blood 05/31/2022 1:25 PM EDT 05/31/2022 1:23 PM EDT Dominique Hinds MD BLOOD BANK PRODUCT O RDERABLES Performing Organization Address [facility]/ZIP Co de Phone Number [facility] [place] [address] * (ABNORMAL) Differential, Automated (05/31/2022 12:44 PM EDT) Neutrophil % 62.0 % [facility] Neutrophil Absolute 4.71 1.70 - 6.10 x10(3)/mc L [facility] Lymph % 24.1 % [facility] Lymphocytes Abs 1.8 0.9 - 3.2 x10(3)/ L [facility] Monocyte % 10.8 % [facility] Monocyte Abs 0.8 0.3 - 0.9 x10(3)/[facility] Eos % 1.6 % [facility] Eosinophils Abs 0.1 0.0 - 0.4 x10(3)/[facility] Basophil % 0.7 % [facility] Baso Absolute 0.0 0.0 - 0.1 x10(3)/ L [facility] Immature Gran % 0.80 % [facility] Comment: Immature granulocytes(IG's)percentage and absolute count will include metamyelocytes, myelocytes, and promyelocytes. Blood smears from CBCs yielding IG's will be scanned manually for concordance. If this scan disagrees with the automated IG or if promyelocytes are noted, a manual differential will be performed. Immature Gran Absolute 0.06(H) 0.00 - 0.04 x10(3)/ L [facility] Blood 05/31/2022 12:4 4 PM EDT 05/31/2022 12:57 PM EDT Narrative Resulting Agency Comment Spec In Lab Brittany Ramirez MD HEMATOLOGY ORDERABLE S Performing Organization Address City/[facility]/ZIP Co de Phone Number [facility] [place] [address] * (ABNORMAL) Hemogram (05/31/2022 12:44 PM EDT) White Blood Cell 7.6 4.0 - 9.5 x10(3)/ L [facility] Red Blood Cell 2.11(L) 4.58 - 5.54 x10(6)/mc L [facility] Hemoglobin 6.9(L) 13.7 - 16.5 g/dL [facility] Hematocrit 20.8(L) 40.5 - 48.5 % [facility] Mean Cell Volume 98.6(H) 82.9 - 93.1 [facility] Mean Cell Hemoglobin 32.7(H) 27.5 - 32.1 pg [facility] Mean Cell Hemoglobin Concentration 33.2 32.0 - 35.7 g/dL [facility] Platelet 255 145 - 357 x10(3)/[facility] LABORATORY RDW Standard Deviation 47.7(H) 36.0 - 45.0 [facility] RDW coefficient of variation 13.4 11.4 - 13.8 % [facility] Mean Platelet Volume 10.7 7.6 - 12.9 [facility] NRBC% auto 0.0 % [facility] NRBC Absolute 0.000 0.000 - 0.000 x10(3)/[facility] Blood 05/31/2022 12:4 4 PM EDT 05/31/2022 12:57 PM EDT Narrative Resulting Agency Comment Spec In Lab Brittany Ramirez MD HEMATOLOGY ORDERABLE S [facility] [place] [address] * (ABNORMAL) BLOOD GAS 2 VENOUS (05/31/2022 11:24 AM EDT) pH, Venous 7.38 7.32 - 7.42 [facility] PCO2, Venous 40(L) 41 - 51 mmHg [facility] PO2, Venous 18(L) 25 - 40 mmHg [facility] Bicarbonate, Venous 23.3 mmol/L [facility] Base Excess, Venous -1.8 mmol/L [facility] Hgb Blood Gas 7.0(L) 13.7 - 16.5 g/dL [facility] Oxyhemoglobin, Venous 24.3 % [facility] Carboxyhemoglob in, Venous 1.4 % [facility] Comment: Nonsmokers: 0.5-1.5% COHB Smokers: Variable, but usually less than 10% Toxic: 20-30% COHB Lethal: Greater than 60% COHB Methemoglobin, Venous 1.7(H) <=1.5 % [facility] Na [...] [facility] Gluc Whole Bld 204(H) 65 - 199 mg/dL [facility] Comment:Diabetes: >=200 mg/d L plus symptoms Lactate WB 1.4 0.5 - 2.2 mmol/L [facility] Blood Gas Source Venous [facility] Blood 05/31/2022 11:2 4 AM EDT 05/31/2022 11:24 AM EDT Dominique Hinds MD POINT OF CARE TEST O RDERABLES [facility] [place] [address] * TSH [place] (05/31/2022 11:20 AM EDT) Thyroid Stimulating Hormone 1.67 0.27 - 4.20 mcIU/mL [facility] Comment: Reference Interval (mcIU/mL): Females: ??First Trimester: 0.23-3.88 ??Second Trimester: 0.22-3.90 ??Third Trimester: 0.44-4.66 Blood 05/31/2022 11:2 0 AM EDT 05/31/2022 11:28 AM EDT Narrative Resulting Agency Comment Spec In Lab Dominique Hinds MD CHEMISTRY ORDERABLES [facility] [place] [address] * XR Chest PA & Lateral (Generic) [...] questions please contact the health health care facilities inspector that requested your imaging first. ? Narrative [...] have questions please contactthe health health care facilities inspector that requested your imaging first. Dominique Hinds MD IMG DX ORDERABLES * Lipase (05/31/2022 10:50 AM EDT) Lipase 41 0 - 60 unit/L [facility] Blood Venous Draw / Unknown 05/31/2022 10:50 AM EDT 05/31/2022 11:11 AM EDT Narrative Resulting Agency Comment Spec In Lab Zain Champion MD CHEMISTRY ORD ERABLES [facility] [place] [address] * (ABNORMAL) Hepatic Function Panel (05/31/2022 10:50 AM EDT) Protein, Total 6.4 6.1 - 8.0 g/dL [facility] Albumin 4.1 3.2 - 5.2 g/dL [facility] Aspartate Aminotransferase 24 0 - 39 unit/L [facility] Alanine Aminotransferase 44 0 - 55 unit/L [facility] Alkaline Phosphatase 63 40 - 130 unit/L [facility] Bilirubin, Total <0.2(L) 0.2 - 1.3 mg/dL [facility] Bilirubin, Direct 0.1 0.0 - 0.3 mg/dL [facility] Blood Venous Draw / Unknown 05/31/2022 10:50 AM EDT 05/31/2022 11:11 AM EDT Narrative Resulting Agency Comment Spec In Lab Zain Champion MD CHEMISTRY ORD ERABLES Performing Organization Address City/[facility]/ZIP Co de Phone Number [facility] [place] [address] * Blue Tube HOLD (05/31/2022 10:50 AM EDT) Blue Hold Sample in lab. [facility] Blood Venous Draw / Unknown 05/31/2022 10:50 AM EDT 05/31/2022 11:05 AM EDT Brittany Ramirez MD HEMATOLOGY ORDERABLE S [facility] [place] [address] * (ABNORMAL) Differential, Automated (05/31/2022 10:50 AM EDT) Pathologist [facility] [place] Neutrophil % 66.9 % [facility] Neutrophil Absolute 5.58 1.70 - 6.10 x10(3)/mc L [facility] Lymph % 22.2 % [facility] Lymphocytes Abs 1.8 0.9 - 3.2 x10(3)/mc L [facility] Monocyte % 7.8 % [facility] Monocyte Abs 0.6 0.3 - 0.9 x10(3)/mc L [facility] Eos % 1.2 % [facility] Eosinophils Abs 0.1 0.0 - 0.4 x10(3)/ L [facility] Basophil % 0.7 % [facility] Baso Absolute 0.1 0.0 - 0.1 x10(3)/mc L [facility] Immature Gran % 1.20 % [facility] Comment: Immature granulocytes(IG's)percentage and absolute count will include metamyelocytes, myelocytes, and promyelocytes. Blood smears from CBCs yielding IG's will be scanned manually for concordance. If this scan disagrees with the automated IG or if promyelocytes are noted, a manual differential will be performed. Immature Gran Absolute 0.10(H) 0.00 - 0.04 x10(3)/mc L [facility] Blood 05/31/2022 10:5 0 AM EDT 05/31/2022 11:03 AM EDT Narrative Resulting Agency Comment Spec In Lab Brittany Ramirez MD HEMATOLOGY ORDERABLE S [facility] [place] [address] * (ABNORMAL) Hemogram (05/31/2022 10:50 AM EDT) White Blood Cell 8.3 4.0 - 9.5 x10(3)/ L [facility] Red Blood Cell 2.26(L) 4.58 - 5.54 x10(6)/mc L [facility] Hemoglobin 7.4(L) 13.7 - 16.5 g/dL [facility] Hematocrit 22.3(L) 40.5 - 48.5 % [facility] Mean Cell Volume 98.7(H) 82.9 - 93.1 fL [facility] Mean Cell Hemoglobin 32.7(H) 27.5 - 32.1 pg [facility] Mean Cell Hemoglobin Concentration 33.2 32.0 - 35.7 g/dL [facility] Platelet 283 145 - 357 x10(3)/[facility] LABORATORY RDW Standard Deviation 47.0(H) 36.0 - 45.0 [facility] LABORATORY RDW coefficient of variation 13.4 11.4 - 13.8 % [facility] Mean Platelet Volume 10.8 7.6 - 12.9 [facility] LABORATORY NRBC% auto 0.0 % [facility] NRBC Absolute 0.000 0.000 - 0.000 x10(3)/ L [facility] Blood 05/31/2022 10:5 0 AM EDT 05/31/2022 11:03 AM EDT Narrative Resulting Agency Comment Spec In Lab Brittany Ramirez MD HEMATOLOGY ORDERABLE S [facility] [place] [address] * Phosphorus (05/31/2022 10:50 AM EDT) Pathologist [facility] [place] Phosphorus 3.2 2.5 - 4.5 mg/dL [facility] Blood 05/31/2022 10:5 0 AM EDT 05/31/2022 11:03 AM EDT Narrative Resulting Agency Comment Spec In Lab Dominique Hinds MD CHEMISTRY ORDERABLES [facility] [place] [address] * Magnesium (05/31/2022 10:50 AM EDT) Magnesium 0.93 0.69 - 1.07 mmol/L [facility] Blood 05/31/2022 10:5 0 AM EDT 05/31/2022 11:03 AM EDT Narrative Resulting Agency Comment Spec In Lab Dominique Hinds MD CHEMISTRY ORDERABLES Performing Organization Address City/[facility] Co de Phone Number [facility] [place] [address] * (ABNORMAL) pro-Brain Natriuretic Peptide (05/31/2022 10:50 AM EDT) Pathologist [facility] [place] NT-proBNP 1,077(H) <=449 pg/mL [facility] Blood 05/31/2022 10:5 0 AM EDT 05/31/2022 11:03 AM EDT Narrative Resulting Agency Comment Spec In Lab Dominique Hinds MD CHEMISTRY ORDERABLES Performing Organization Address City/[facility]/ZIP Co de Phone Number [facility] [place] [address] * Troponin (05/31/2022 10:50 AM EDT) Troponin-T <0.01 0.00 - 0.00 ng/mL [facility] Comment: The 99th percentile for Troponin T is less than 0.01 ng/mL, any detectable cTnT concentration using this assay should be considered elevated. According to the third universal definition of myocardial infarction the following criteria with a clinical presentation consistent with acute myocardial ischemia meets the diagnosis for a myocardial infarction ([place]). Detection of a rise and/or fall of cTnT, with at least one value greater than the 99th percentile (> or = 0.01) and with at least one of the following ?? Symptoms of ischemia ?? New or presumed new significant [id number] wave (ST-T) changes or new left bundle [...] additional sample may be indicated. Reference: Third [place] Definition of Myocardial Infarction. Journal of the [place] [employer] 2012;60:1581-98 Blood 05/31/2022 10:5 0 AM EDT 05/31/2022 11:03 AM EDT Narrative Resulting Agency Comment Spec In Lab Dominique Hinds MD CHEMISTRY ORDERABLES [facility] [place] [address] * (ABNORMAL) Basic Metabolic Panel (non-fasting) (05/31/2022 10:50 AM EDT) Glucose 223(H) 65 - 199 mg/dL [facility] Comment:Diabetes: >=200 mg/d L plus symptoms Blood Urea Nitrogen 39(H) 10 - 20 mg/dL [facility] [...] questions. Chloride 107 98 - 107 mmol/L [facility] Carbon Dioxide 23 22 - 31 mmol/L [facility] Anion Gap 10 5 - 15 mmol/L [facility] Calcium 9.1 8.5 - 10.5 mg/dL [facility] Est Glomerular Filtration Rate 86 >=60 mL/min/1. 73 m?? [facility] Comment: This [...] In Lab Dominique Hinds MD CHEMISTRY ORDERABLES [facility] [place] [id number] * EKG 12 Lead (05/31/2022 10:11 AM EDT) Ventricular rate 106 BPM MUSE SYSTEM QRS Duration 122 ms MUSE SYSTEM Q-T Interval 368 ms MUSE SYSTEM QTC Calculated (Bezet) 488 ms MUSE SYSTEM Calculated R [place] -43 degrees MUSE SYSTEM Calculated T [place] 109 degrees MUSE SYSTEM INTERPRETATION Atrial fibrillation with rapid ventricular response Left axis deviation Minimal voltage criteria for LVH, may be normal variant ( [place] product ) Cannot rule out Anterior infarct , age undetermined Abnormal ECG When compared with ECG of 20-MAY-2022 19:04, No significant change was found I personally reviewed the tracing and edited the fellows interpretation Confirmed by fellow MD Mike, [place] ([id number]) on 06/02/2022 8:36:21 PM Confirmed by MD KENDRICK, ABBY ([id number]) on 06/03/2022 5:04:32 PM MUSE SYSTEM 05/31/2022 10:1 1 AM EDT 06/03/2022 5:04 PM EDT Dominique Hinds MD ECG ORDERABLES [employer] documented in this encounter Visit Diagnoses [...] Fri05/31/22 at 2015, Until Discontinued, Routine Given 06/02/2022 8:12 AM EDT 75 mg Given 06/01/2022 8:12 AM EDT 75 mg Given 05/31/2022 9:09 PM EDT 75 mg fluticasone propionate (Flonase) 50 mcg/actuation nasal spray 1 spray 1 spray, Each Nare, DAILY, First dose on Fri05/31/22 at 2015, Until Discontinued, Routine Given 06/02/2022 8:13 AM [...] AM EDT 400 Units/hr 8 mL /hr lidocaine (Lidoderm) 5% patch 2 patch 2 [...] 20 mg, Oral, DAILY, First dose on [place] 06/02/22 at 1115, Until Discontinued, Routine, Restricted anticoagulant, [...] 0.4 mg, Oral, DAILY, First dose on 06/01/22 at 1400, Until Discontinued, DO NOT CRUSH [...] 0812 (Given - Provider: Trinidad Saenz RN) fluticasone propionate (Flonase) 50 mcg/actuation nasal spray 1 spray 1 spray, Each Nare, DAILY, First dose on Fri05/31/22 at 2015, Until Discontinued, Routine 2108 (Given - Provider: [...] Procedural area)1747 (MAR Unhold - Provider: Admin Adt)175 (Given - Provider: Angella Floyd RN)210 (Given [...] Barbour RN) 0814 (Given - Provider: Trinidad Saenz, RN) tamsulosin (Flomax) capsule 0.4 mg 0.4 mg, Oral, DAILY, First dose on 06/01/22 at 1400, Until Discontinued, DO NOT CRUSH OR OPEN, Routine 1418 (Given - Provider: Trinidad Saenz, RN) 0812 (Given - Provider: Trinidad Saenz [...] RN)1148 (Stopped - Provider: Maranda Ribeiro RN) PRN Medication Order 05/31/2022 06/01/2022 06/02/2022 acetaminophen (Tylenol) tablet 650 mg 650 mg, Oral, EVERY 6 HOURS PRN, Starting on Fri05/31/22 at 2013, Until 06/02/22 at 1702, Pain, Maximum dose of acetaminophen is 4000 mg from all sources in 24 hours. When ordered for pain, acetaminophen should be given even when other ordered pain medications are indicated. , Routine carboxymethylcellulose (Refresh Plus) 0.5 % ophthalmic drops 1 drop 1 drop, Both Eyes, 3 TIMES DAILY PRN, Starting on Fri05/31/22 at 2013, Until 06/02/22 at 1702, Dry Eyes, Routine heparin (porcine) (1,000 units/mL) injection 0-4,000 Units(Linked Group 2) 0-4,000 Units, Intravenous, BOLUS PER HEPARIN PROTOCOL, Starting on Fri05/31/22 at 2013, Until 06/02/22 at 1702, Per Protocol, START ADJUSTMENT SCHEDULE [...] Routine documented in this encounter Care Teams Nick Setter Relationship Specialty Start Date End Date Lippmann, Abby, MD [address] [place] [address] [place] [phone] PCP - General 10/02/10 documented as of this encounter
--- OUTSIDE RECORDS SUMMARY | 2024-09-17 01:32 | XMS_ITS | Encounter Summary ---
Author Organization [facility] Address 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 ([place]) 05/20/2022: Coronary angiography, L heart catheterization, coronary ultrasound, coronary angioplasty mid LCX lesion, coronary stent insertion of ostial OM1 lesion. (Interventional cardiology). 81M w new onset Afib who presents in transfer from [facility] with acute limb ischemia of the LLE.??The patient had sudden pain starting at 630 this morning he presented [facility] where he was placed on heparin. ??He describes waxing and waning motor and sensory symptoms however he feels like he had been sensory deficits which have slightly improved.?He now reports diminished but present sensation. ??Hehas decreased motor sensation. ?? He is a smoker of 1/2 pack/day, with no home oxygen or known COPD. He is a prediabetic without any medications. ??He does report a history of arm ischemia in which his arm turned blue after a cardiac procedure for mitral valve replacement a number of years ago. ??At that time he underwent a surgery, during which thrombus was removed from the arm. ??His arm has baseline functioning. He has no history of bleeding, he does not take any blood thinners. He has not eaten since yesterday. ?? Hospital Course: On 05/15/22, patient was admitted to the vascular surgery service with ALI and emergently went to [facility] for L SALVAGE CUTTER transverse arteriotomy and primary repair, thromboembolectomy of L SFA/PFA/SALVAGE CUTTER, reperfusion venous drainage for 250 cc, [...] performed with no bulging of muscle, healthy muscle.??He was re-admitted for post-operative monitoring. ?? Fasciotomy sites closed on POD 2 at bedside under local anestheia. On POD 2, patient was noted to have new onset A Fib and cardiology was engaged. TTE on POD1 revealed new moderate and LV systolicdysfunction with HFrEF. On POD5, patient underwent PCI with coronary angioplasty mid LCX lesion andcoronary stent insertion of ostial OM1 lesion. Cardiology recommendations to continue Triple therapy for 1 month. At that time, ASA can be stopped and continue NOAC and Plavix for 1 year post-procedure. Continue metoprolol succinate and valsartan at discharge. Start Farxiga as well given no PAD. Ziopatch at discharge and follow- up in cardiology clinic in 1 month. Today C/o last few days of low BP, dizziness, lightheaded, feeling cold and this AM SOB. Denies fever, problems with leg or groin incision, Chest pain, TIA's PE General: NAD, appears well Neuro: Alert and oriented, motor sensory grossly intact Lungs: CTA Heart: irregular uncontrolled Afib Abd: Soft, NT, ND, no palpable pulsatile masses Extremity - [place], warm, no ulceration, brisk capillary refill, left calf edema left calf medial andlateral incision intact with windy. Left groin incisions [...] cellulitis. Uncontrolled Afib, SOB, hypotensive, dizzy. Code Elly called He was evaluated and taken to ER for further evaluation RTC 06/13/22 with studies and see Dr Summers. documented in this encounter Plan of Treatment Not on file documented as of this encounter Visit Diagnoses Diagnosis Dizzy Dizziness and giddiness Atrial fibrillation, unspecified type SOB (shortness of breath) Shortness of breath documented in this encounter Care Teams Supervisor Refining Relationship Specialty Start Date End Date Bobby Das MD [address] [place] [address] [place] [id number] PCP - General 10/02/10 documented as of this encounter
--- OUTSIDE RECORDS SUMMARY | 2024-09-17 01:32 | XMS_ITS | Encounter Summary ---
Author Organization [facility] [place] [address] Care Team Providers Care Youth Development Specialist Name Role Phone Bobby Das MD Primary Care Provider [phone] Reason for Referral * Consultation (Routine) - Closed Specialty Diagnoses / Procedures Referred By Contac t Referred To Contact Diagnoses Non-ST elevation myocardial infarction (NSTEMI) Limb ischemia Nasrin Parra PA [facility] [place] [address] [facility] [place] [address] Referral ID Status Reason Start Date Expiration Date V isits Requested Visits Authorized [id number] Closed Consult, Test & Treat 05/21/2022 05/21/2023 1 1 * Diagnostic Test (Routine) - Closed Specialty Diagnoses / Procedures Referred By Contac t Referred To Contact Cardiology Diagnoses Paroxysmal atrial fibrillation Procedures Ziopatch 48 Hrs-15 Days Nasrin Parra PA [facility] [place] [address] [facility] [place] [address] Referral ID Status Reason Start Date Expiration Date V isits Requested Visits Authorized [id number] Closed Specialty Service Requested 05/21/2022 10/21/2022 1 1 * Consultation (Routine) - Closed Specialty Diagnoses / Procedures Referred By Colby quezada Referred To Contact Cardiology Diagnoses HFrEF (heart failure with reduced ejection fraction) Paroxysmal atrial fibrillation Post-hospital follow-up, s/p PCI with stenting, heart failure Nasrin Parra PA [facility] [place] [address] [facility] [address] [address] [place] [phone] Referral ID Status Reason Start Date Expiration Date V isits Requested Visits Authorized [id number] Closed Consult, Test & Treat 05/21/2022 05/21/2023 1 1 * Diagnostic Test (Routine) - Closed Specialty Diagnoses / Procedures Referred By Colby quezada Referred To Contact Diagnoses Limb ischemia Procedures JOSSELYN, legs, multiple levels Nasrin Parra PA [facility] [place] [address] [facility] [place] [address] [address] Referral ID Status Reason Start Date Expiration Date V isits Requested Visits Authorized [id number] Closed Specialty Service Requested 05/21/2022 05/21/2023 1 1 * Home Health Care (Routine) - Closed Specialty Diagnoses / Procedures Referred By Colby quezada Referred To Contact Diagnoses Limb ischemia Fito Summers MD [facility] [place] [address] [facility] & [address] [place] [address] Referral ID Status Reason Start Date Expiration Date V isits Requested Visits Authorized [id number] Closed Consult, Test & Treat 05/21/2022 11/17/2022 999 999 Reason for Visit * Reason Comments Left Leg Pain * Auth/Cert Specialty Diagnoses / Procedures Referred By Contac t Referred To Contact Diagnoses Limb ischemia LLE thrombus Fito Summers MD [facility] [place] [address] [facility] Referral ID Status Reason Start Date Expiration Date Visits Re quested Visits Authorized [id number] 1 1 Encounter Details Date Type Department Care Team (Late st Contact Info) Description 05/15/2022 10:15 AM EDT - 05/21/2022 3:15 PM EDT Hospital Encounter Inter[place] [address] Fito Summers MD [facility] [place] [address] Wellington Jean MD [facility] [place] [address] Atrial fibrillation, unspecified type; Non-ST elevation myocardial infarction (NSTEMI); Limb ischemia; HFrEF (heart failure with reduced ejection fraction); Paroxysmal atrial fibrillation Discharge Disposition: Home with VNA Social History Tobacco Use Types Packs/Day Years [...] 36.9 ??C (98.4 ??F) 05/21/2022 11:24 AM E DT Respiratory Rate 17 05/21/2022 11:24 AM EDT Oxygen Saturation 95% 05/21/2022 11:24 AM EDT Inhaled Oxygen Concentration - - Weight 79.4 kg (175 lb) 05/21/2022 9:00 AM EDT Height 172 cm (5' 7.72) 05/15/2022 6:00 PM EDT Body Mass Index 26.83 05/15/2022 6:00 PM EDT documented in this encounter Discharge Summaries * Nasrin Parra PA - 05/21/2022 2:34 PM EDT Inpatient - Discharge Summary Patient Name: Koko Bah Patient Age: 81 y.o. Birthdate: 1940 Admit date: 05/15/2022 Discharge date and time: 05/21/2022 Attending Physician: Fito Summers MD Discharging Provider: JOSEE Santiago Discharging Service: Vascular Surgery Operations/Major Procedures: 05/15/2022: Left common femoral transverse arteriotomy and primary repair; Thromboembolectomy of the SFA, profunda, and common femoral artery; Reperfusion venous drainage of 250cc; Left lower extremity 4 compartment fasciotomies. 05/20/2022: Coronary angiography, L heart [...] ??? Alcohol use History of Presentation: Koko Bah is a 81M w new onset Afib who presents in transfer from [facility] with acute limb ischemia of [...] with ALI and emergently went to [facility] for L MANAGER SOURCING transverse arteriotomy and primary repair, thromboembolectomy of L SFA/PFA/MANAGER SOURCING, reperfusion venous drainage for 250 cc, and [...] healthy muscle.??He was re-admitted for post-operative monitoring. Fasciotomy sites [...] up in cardiology clinic in 1 month. Prevena wound vac removed POD 5 and L groin incision clean and dry without signs of infection. Patient worked with PT who recommend discharge to home with home health. Patient's recovery with good POintake, adequate output following mack removal, and pain well controlled on PO meds. Patient deemed medically ready for discharge on 05/21/22, will follow up in 2 weeks for a wound check and again in1 month with ABIs. Day of Discharge Physical Exam: BP 108/90 (BP Location (NBP): Left arm, Patient Position: Sitting) Pulse 97 Temp 36.9 ??C (98.4??F) (Oral) Resp 17 Ht 172 cm (5' [...] Discharge Condition: Good Discharge to: Home with [facility] [address] [address] Future Appointments and Orders Future Appointments and Orders Future Appointments Provider Department Dept Phone 05/23/2022 10:30 AM Loretta Cohen MD Dermatology at [facility] Arrive at: Shot Grinder Operator [address] [place] [address] 06/07/2022 1:30 PM Gail Rae APRN Vascular Surgery at [facility] Arrive at: Shot Grinder Operator Area 06/13/2022 7:30 AM Edson Lagos [place] Vascular Lab at [facility] Arrive at: Shot Grinder Operator Area 3V [phone] 06/13/2022 8:00 AM Fito Summers MD Vascular Surgery at [facility] Arrive at: Shot Grinder Operator Area 3V [phone] 06/13/2022 10:00 AM Alan Reid MD Cardiology at [facility] Arrive at: Shot Grinder Operator Area [phone] Future Orders Complete By Expires Ziopatch 48 Hrs-15 Days [[id number] CPT(R)] 05/21/2022 11/20/2022 Process Instructions: Scheduling Instructions: Comments: Questions: Does the patient have a pacemaker? If yes provide HI/LO settings: Apply for 7 or 14 days?: 7 Where will study be performed?: [facility] JOSSELYN, legs, multiple levels [VAS8 Custom] 06/21/2022 (Approximate) 12/21/2022 Process Instructions: There is no in-house vascular cemetery laborer available on weeknights (5pm-8am), weekends, or holidays. IF THIS IS A REQUEST FOR AN EMERGENT STUDY DURING THOSE HOURS, please have the senior provider responsible for the patient page the Vascular Surgery Fellow/Senior Resident director of collections to discuss options. Scheduling Instructions: Questions: Indication [...] comments. Scheduling Instructions: Comments: Please evaluate Koko Bah for admission to Home Health. [address] [place] [phone] (home) Date of : 1940 Inpatient DOCUMENTATION FOR VNA SERVICES (INCLUDING THOSE PATIENTS WITH MEDICARE COVERAGE REQUIRING HOME VNA SERVICES AND/OR HOSPICE SERVICES) PATIENT'S LOCATION: Koko Bah [address] [facility] [phone] (home) Cell: No relevant phone numbers on file. Line Maintainer's Name: Koko In discussion with the attending physician, it is certified that this patient is under their care and that they, or a Nurse Practitioner,Clinical Nurse specialist or Physician Ship'S Engineer who is working directly with them, had a face to face encounter that meets the physician face to face encounter requirements with this patient on 05/21/2022 (MD please enter DC date here) The encounter with the patient was in whole, or in part, for the following medical condition, whichis the primary reason for home health care services: Inability to leave home due to recent major surgical intervention, post-op deconditioning In discussion with the provider, it is certified that, based on their findings, the following services are medically necessary for home health services. To provide the following care/treatments with the clinical findings supporting the need for services as follows: HOME CARE ORDERS: RN ORDERS:Assess wound or incision, vital signs, cardiopulmonary status, nutrition, hydration, elimination, meds effectiveness and management; reinforce education re health issues PT ORDERS: Continue rehab for endurance, gait stability and strength with mobility and transfers. Home safety evaluation. Home exercise program if appropriate. OT: assess and continue rehab for managing ADL's. HOME HEALTH CARE AGENCY: [facility] [address] [address] Start of care: Within 24 to 48 hours of discharge FOR MEDICARE ONLY: (please delete this section if not Medicare) In discussion with the attending physician, it is certified that the clinical findings support thatthis patient is homebound because absences from home require considerable and taxing effort due to:Unsteady Gait, poor balance, requiring assistive devices and/or assistance of another Please note that any additional orders needs or changes will need to be obtained from this patient's PCP: Bobby Das MD [address] [place] [address] / [place] [address] All VNA agencies which cover the area of patient's residence have been reviewed, either verbally ashley writing, and patient/family have chosen the home [...] thromboembolectomy (removal of clot) and 4 compartment fasciotomy to get more blood flow to your leg. All of this went very well. Dr. Summers will want you to be seen in approximately two weeks for a wound check and in one month with vascular studies. All of this will be ordered and sent to you in the mail. If for some reason you don't receive this within a weekor so please call our office as your [...] redness or separation of your incision, increased pain or change in temperature of your leg or around your incision Activity level: Up as tolerated but watch for swelling of your leg. Manage this with leg elevation,toes higher than your nose and also can [...] gauze as needed to keep them clean and dry. Do not soak or submerge your incision until cleared to do so at a follow up appointment. Wound Care: Re-dress with dry gauze daily as needed to keep the area clean and dry. For any problems or questions please call [phone] For issues on weeknights after 5pm and weekends please call [phone] and ask for the Vascular Fellow director of collections. JOSEE Santiago Vascular Surgery 05/21/2022 documented in this encounter Discharge Instructions * Patient Instructions* Nasrin Parra PA - 05/20/2022 1:17 PM EDT Patient Instructions You were admitted after undergoing thromboembolectomy (removal of clot) and 4 compartment fasciotomy to get more blood flow to your leg. All of this went very well. Dr. Summers will want you to be seen in approximately two weeks for a wound check and in one month with vascular studies. All of this will be ordered and sent to you in the mail. If for some reason you don't receive this within a weekor so please call our office as your [...] redness or separation of your incision, increased pain or change in temperature of your leg or around your incision Activity level: Up as tolerated but watch for swelling of your leg. Manage this with leg elevation,toes higher than your nose and also can [...] gauze as needed to keep them clean and dry. Do not soak or submerge your incision until cleared to do so at a follow up appointment. Wound Care: Re-dress with dry gauze daily as needed to keep the area clean and dry. For any problems or questions please call [phone] For issues on weeknights after 5pm and weekends please call [phone] and ask for the Vascular Fellow director of collections. documented in this encounter Medications at Time of Discharge Medication Sig Dispensed Refills Start Date End Date fluticasone propionate (FLONASE) 50 mcg/actuation [place], Suspension 1 spray by Each Nare route [...] for Pain. 30 tablet 1 05/21/2022 11/05/2023 valsartan (Diovan) 40 mg Tablet Take 1 tablet by mouth 2 times daily. 60 tablet 1 05/21/2022 06/02/2022 aspirin EC 81 mg Tablet, Delayed Release (E.C.) Take 1 tablet by mouth daily for 30 days. 30 tablet 05/22/2022 06/02/2022 clopidogreL (Plavix) 75 mg Tablet Take 1 [...] as of this encounter Progress Notes * Nasrin Parra PA - 05/21/2022 12:41 PM EDT Vascular Surgery Progress Note Koko Bah is a 81 y.o. male with w new onset Afib who presents in transfer from [facility] with acute limb ischemia of the LLE. ?? The patient had sudden pain starting at 630 05/15/22, he presented [facility] where he was placed on heparin. He describes waxing and waning motor and sensory symptoms however he feels like he had been sensory deficits which have slightly improved. He now reports diminished but present sensation. He hasdecreased motor sensation. ?? He is a [...] the arm. His arm has baseline functioning. Active Hospital Problems Diagnosis ??? Limb ischemia [...] 250cc; Left lower extremity 4 compartment fasciotomies. 05/20/2022: Coronary angiography, L heart catheterization, coronary ultrasound, coronary angioplasty mid LCX lesion, coronary stent insertion of ostial OM1 lesion. (Interventional cardiology) 24 hr event/Subjective: Cardiac cath by interventional cardiology yesterday. No acute events overnight, remains afebrile and HDS. No complaint of chest pain or dyspnea this morning, patient is anxious to leave. Pain is controlledat present. Objective: Temp: [36.6 ??C (97.9 ??F)-37.4 [...] dysfunction are new. Assessment & Plan: Koko Bah is a 81 y.o. male admitted with [...] status, full code. JOSEE Santiago 05/21/2022 Pager: [phone] * Brannon Isaacs - 05/21/2022 10:35 AM EDT Physical Therapy Note Treatment Number PT: 2 Patient profile: Koko Bah is a 81 y.o. male admitted on [...] have a walker from a prior time of needing it. His can help out as needed. He has several steps w/rail to access his home then all needs on one floor. ?? Precautions/Special Considerations: L [...] planning, use of walker, stairs Assessment: Koko Bah was seen today for physical therapy treatment session for continuation of POC. Tolerated PT well. Is mobilizing much [...] plan as stated. Time IN / OUT: 8725-7750 Total Minutes, Physical Therapy: 25 Billing Code: 2 BOSTON Isaacs DPT Pager: [phone] Physical Therapy Inpatient Rehabilitation Department * Wellington Jean MD - 05/21/2022 10:16 AM EDT Images from the original note were not included. Brief Cardiology Consult: Koko Bah is a 81 y.o. gentleman with a history of remote mitral valve repair (2000), prediabetes, hyperlipidemia, significant alcohol use, and tobacco use who is admitted to the Vascular Surgery service with acute LLE limb ischemia for which he underwent left femoral cutdown with thromboembolectomy 05/15/22. His course has been complicated by new onset atrial fibrillation with rapid ventric ular response, moderate aortic stenosis & HFrEF for [...] 4.5 CL 103 102 108* CO2 24 22 BUN 11 12 12 CREATININE 0.63* [...] dysfunction are new. Assessment & Plan Koko Bah is a 81 y.o. gentleman with above past medical history admitted with acute LLE ischemia. Cardiac catheterization notable for 2V CAD (ostial OM1 & distal RCA). He is status-post angioplasty of a mid LCx lesion & stenting of the ostial OM1 lesion 05/20. May plan for staged PCI pending clinical course. Based on shared decision making with [...] which could have led to a tachymyopathy. Other considerations include alcohl related cardiomyopathy. Certainly warrants consideration of nonsichemic work-up (labs +/- cardiac MRI), potentially as an outpatient. Discussed his femoral artery thrombus with our Vascular specialist today, who agrees this was likely a cardioembolic phenomenon. #ASCVD - Plan for one [...] addition of spironolactone, would consider addition of thisas an outpatient - Consider an SGLT2 at [...] and plan of care per Dr. Mcnamara (environmental quality analyst). Please refer to her note above for details. 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 Lcx PCI only at this time. Unlikely that the CAD is responsible for the low EF. Hisinitial presentation was for limb ischemia (thromboembolic) and he is a long-term smoker (1/2 ppd, recommend nicotine patch). His leg is much improved after vascular surgery. He is being discharged today and will follow-up in the cardiology clinic to determine the need for further PCI of the RCA aswell as improvement in his LVEF. He is being discharged on triple therapy with ASA, plavix, and apixaban. We discussed some of therisks and benefits. May be able to drop the ASA after one month. Other details as above. * Tere Blankenship RN - 05/21/2022 5:49 AM EDT Assumed care of pt s/p cath around 1930. TR band off at 2230, site CDI. Pt in a fib on tele w HR inth 90-120s. On RA, denies any CP or SOB overnight. Hep gtt restarted at 0230 per protocol (see eMAR). A+Ox4, SBA w walker, discharge planning as possible. Tere Blankenship RN * Wellington Jean MD - 05/20/2022 4:32 PM EDT Images from the original note were not included. Brief Cardiology Consult: Koko Bah is a 81 y.o. gentleman with a history of remote mitral valve repair (2000), prediabetes, hyperlipidemia, significant alcohol use, and tobacco use who is admitted to the Vascular Surgery service with acute LLE limb ischemia for which he underwent left femoral cutdown with thromboembolectomy 05/15/22. His course has been complicated by new onset atrial fibrillation with rapid ventric ular response, moderate aortic stenosis & HFrEF for which Cardiology is consulted. Interval events: - Pended for cath today to evaluate for ischemia (last cardiac catheterization 2000 was unremarkable for ASCVD; prior to mitral valve repair) - [...] ED to Hosp-Admission (Current) from 05/15/[address] [place] [address] Office Visit from 04/17/2021 in Pain and [...] dysfunction are new. Assessment & Plan Koko Bah is a 81 y.o. gentleman with above past medicla history admitted with acute LLE ischemia. Cardiac catheterization today revealed 2V CAD (ostial OM1 & distal RCA). He is status-post angioplasty of a mid LCx lesion & stenting of the ostial OM1 lesion. May plan for staged PCI pendingclinical course. Unclear at this time whether or not these lesions can account for the severity of his cardiomyopathy. Reasonable to continue evaluation for alternative/nonsichemic causes. To date, TSH is normal. Certainly warrants consideration of nonsichemic work-up (labs +/- cardiac MRI), potentially as an outpatient pending patient preference. #ASCVD - [...] cardiology team. I agree with the findings and plan of care per Dr. Mcnamara (environmental quality analyst). Please refer to her note above for details. A brief review of the diaz cardiac issues as below: This is a 81 year old smoker who was admitted with critical limb ischemia of his left leg. Vascularsurgery performed thromboembolectomy and fasciotomy on the left lower extremity and his leg sensation and movement is much improved. His cardiac history includes a mitral repair in 2000 (not at [facility])with no CAD at that time. Currently, an [...] there was concern about risk vs benefit (would involve bifurcation) and consideration of a staged procedure [...] (presented to an an outside hospital - reviewthose records when available). It is possible that an underlying tachymyopathy may explain the globally reduced LVEF and the CAD is incidental. Given his PAD, CAD, and AF, he will be on triple therapy with ASA, plavix and AC. Will need to discuss bleeding risk and consider PPI. The patient should have follow-up in cardiology clinic. We will continue to follow. * Dottie Hill APRN - 05/20/2022 8:34 AM EDT Vascular Surgery Progress Note Koko Bah is a 81 y.o. male with w new onset Afib who presents in transfer from [facility] with acute limb ischemia of the LLE. ?? The patient had sudden pain starting at 630 05/15/22, he presented [facility] where he was placed on heparin. He describes waxing and waning motor and sensory symptoms however he feels like he had been sensory deficits which have slightly improved. He now reports diminished but present sensation. He hasdecreased motor sensation. ?? He is a [...] the arm. His arm has baseline functioning. Active Hospital Problems Diagnosis ??? Limb ischemia [...] reviewed in chart Assessment & Plan: Koko Bah is a 81 y.o. male 5 Days [...] Dispo: Floor, dispo planning care management following Dottienikhil Hill APRN 05/20/2022 Pager: [phone] * Laney Atkins RN - 05/20/2022 1:14 AM EDT Pt Kkoo transferred to room from [facility]. A&Ox4, oriented to room and call boo. Masimo and telemetry placed. In agreement with assessment as documented this evening by Nuris ASHLEY. No complaintsat this time. Pt aware of NPO status and plan for cardiac cath in AM. Urinal provided. Resting comfortably in bed. * Nuris Lester RN - 05/20/2022 1:09 AM EDT Pt. Transferred to [facility]. RN accompanied patient to floor and handed off to [facility] RN * Dottie Hill APRN - 05/19/2022 10:02 AM EDT Vascular Surgery Progress Note Koko Bah is a 81 y.o. male with w new onset Afib who presents in transfer from [facility] with acute limb ischemia of the LLE. ?? The patient had sudden pain starting at 630 05/15/22, he presented [facility] where he was placed on heparin. He describes waxing and waning motor and sensory symptoms however he feels like he had been sensory deficits which have slightly improved. He now reports diminished but present sensation. He hasdecreased motor sensation. ?? He is a [...] the arm. His arm has baseline functioning. Active Hospital Problems Diagnosis ??? Limb ischemia [...] reviewed in chart Assessment & Plan: Koko Bah is a 81 y.o. male 4 Days [...] management following Dottie Hill APRN 05/19/2022 Pager: [phone] * Emily Sauceda RN - 05/19/2022 6:28 AM EDT OUTCOME EVALUATION NOTE: OUTCOME SUMMARY: Patient AOx4, VSS on RA. Afib on tele. HR controlled w/ PRN metop, given x2. Denies CP, SOB, n/v. See flowsheets for NVC. Dressings to LLE CDI, prevena W[place] to groin intact. Voiding to urinal. 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 Telemetry in place. A-fib rhythm noted. All other VSS on RA. Pain well controlled with scheduled and prn medications per JAN. Dressings to LLE C/D/I. Incisions to LLE WDL and SCREW MACHINE OPERATOR. Denies n/t to BLE. 2+ dorsal pulses noted. Heparin drip infusing at 1200 units/hr. UFH within therapeutic range, next labs due with morning labs. Voiding adequately without difficulty to bedside urinal. 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 Worked with PT, tolerated well. Diet changed to regular at 1800. Plan is for cardiac cath on Friday. PLAN MOVING FORWARD: Bleeding precautions Pain management neurovascular checks PT/OT factory laborer INDIVIDUALIZED FALL PREVENTION INTERVENTIONS: Patient-specific fall [...] [X] No CARE PLAN GOAL OUTCOME EVALUATION: * Dottie Hill APRN - 05/18/2022 12:50 PM EDT Vascular Surgery Progress Note Koko Bah is a 81 y.o. male with w new onset Afib who presents in transfer from [facility] with acute limb ischemia of the LLE. ?? The patient had sudden pain starting at 630 05/15/22, he presented [facility] where he was placed on heparin. He describes waxing and waning motor and sensory symptoms however he feels like he had been sensory deficits which have slightly improved. He now reports diminished but present sensation. He hasdecreased motor sensation. ?? He is a [...] the arm. His arm has baseline functioning. Active Hospital Problems Diagnosis ??? Limb ischemia [...] Intravenous BID ??? PHENobarbitaL 0.12 mg/kg/dose ([place]) Oral BID ??? thiamine 100 mg Oral [...] reviewed in chart Assessment & Plan: Koko Bah is a 81 y.o. male 3 Days [...] management following Dottie Hill APRN 05/18/2022 Pager: [phone] * Brannon Isaacs - 05/18/2022 10:00 AM EDT Physical Therapy Evaluation Patient profile: Koko Bah is a 81 y.o. male admitted on [...] [facility] Social History: Pt lives with his , both are independent at baseline. He does have a walker from a prior time of needing it. His can help out as needed. He has several steps w/rail to access his home then all needs on one floor. Precautions/Special Considerations: L groin [...] was a bit unstready for a few steps, but then steady after he took a few steps and started putting some weight on L leg Balance: Sitting Static: good Sitting Dynamic: good Standing Static: good with walker Standing Dynamic / Gait: Fair/good with walker Education: patient has been educated on Role of therapy and Discharge planning and verbalizes understanding. Patient status, treatment, and mobility recommendations discussed with nursing. Assessment: Koko Bah was seen today for physical therapy evaluation. The patient toleratedthe PT eval fairly. Slightly painful and anxious [...] for pt/caregiver education, and to promote optimal conditioning while admitted in the hospital. Discharge Recommendations: [...] patient/family education, stair training and transfer training. Patient/family understand and agree [...] complexity based on pt's functional performance as outlinedin this evaluation. Time IN / OUT: 0512-0205 Total Minutes, Physical Therapy: 30 Billing Code: Basilio Isaacs, PT Pager: [phone] Physical Therapy Inpatient Rehabilitation Department * Emily Sauceda RN - 05/18/2022 4:34 AM EDT OUTCOME EVALUATION NOTE: OUTCOME SUMMARY: Patient AOx4, VSS on 2LNC. Afib on tele. HR above 120, MD aware, PRN IV metop given x1, HR returnedto 90's-low 100's. Denies CP, SOB, n/v. See flowsheets for NVC. Dressings to LLE CDI, prevena [place] togroin intact. Voiding to urinal. 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 Heparin gtt therapeutic. Pain controlled. Patient sleeping between care. PLAN MOVING FORWARD: Pain control UFH w/ daily labs Mobilize DC planning INDIVIDUALIZED FALL PREVENTION INTERVENTIONS: Patient-specific fall risk factors per assessment: [current deficits]: Generalized weakness, prevena [place], hospital environment Assistance [level of assistance required for transfers and ambulation]: 1A FWW (PT to re-evaluate 05/18) Supervision [direct monitoring required during toileting and ADLs]: Eyes on Surveillance [continuous indirect monitoring]: Masimo, bed alarm, safety check Patient-specific fall prevention interventions for sensory deficits provided, if applicable: [X] N/A * Nuris Lester RN - 05/17/2022 6:25 PM [...] adequately without difficulty to bedside urinal. 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 Patient not OOB this shift. Currently NPO awaiting procedure in agriculture laboratory technician. PLAN MOVING FORWARD: Bleeding precautions Pain management neurovascular checks PT/OT NPO for agriculture laboratory technician INDIVIDUALIZED FALL PREVENTION INTERVENTIONS: Patient-specific [...] [X] No CARE PLAN GOAL OUTCOME EVALUATION: * Lisbet Morelos, PT - 05/17/2022 2:40 PM EDT Physical Therapy 05/17/22 4520 Evaluation & Treatment Document Type contact Total Minutes, Physical Therapy 10 Comment, Session Not Performed Orders recieved on Koko Bah who is a 81 y.o male with historyof atrial fibrillation not on anticoagulation, and GI bleeding who presented to the Emergency Department as a transfer from [facility] with left lower extremity limb ischemia. He went to [facility] and was started on heparin and transferred to [facility] for evaluation by vascular surgery with subsequent surgery 05/15/22 for a Left common femoral transverse arteriotomy and primary repair Thromboembolectomy of the SFA, profunda, and common femoral artery w/ Left lower extremity 4 compartment fasciotomies. Cardiology has consulted and following. Transthoracic echo yesterday shows severely reduced LVEF 28%, with m ildly decreased RV systolic function. Moderate aortic stenosis. Moderate and LV systolic dysfunction were new from 2011.Pt visted, present in room with MDs the arriving for planned closure offasciotomies at bedside after which he will will be going to the agriculture laboratory technician for evaluation. Will defer PT eval at present but will see as ordered post cardiac catheritizaton. Social Hx:Pt lives with his Ursula in [place], [place] in a 2 level home in which they only use thefirst level. 5 stes w/ R railing at preferred entrance to home. Bathrrom is stall shower w/ new comfort height toilet Pt sleeps in a flat bed, exits out toward the R side of bed DME has a walker and recliner Baseline function: fully indep ADLs. IADls, + driving Precautions: Pt will be WBAT LLE LISBET MORELOS, PT Pager # [phone] In-Pt Rehab Medicine * Dottie Hill, REAL ESTATE SALES MANAGER - 05/17/2022 7:42 AM EDT Vascular Surgery Progress Note Koko Bah is a 81 y.o. male with w new onset Afib who presents in transfer from [facility] with acute limb ischemia of the LLE. ?? The patient had sudden pain starting at 630 05/15/22, he presented [facility] where he was placed on heparin. He describes waxing and waning motor and sensory symptoms however he feels like he had been sensory deficits which have slightly improved. He now reports diminished but present sensation. He hasdecreased motor sensation. ?? He is a [...] the arm. His arm has baseline functioning. Active Hospital Problems Diagnosis ??? Limb ischemia [...] Intravenous BID ??? PHENobarbitaL 0.24 mg/kg/dose ([place]) Oral BID Followed by ??? [START ON 05/18/2022] PHENobarbitaL 0.12 mg/kg/dose ([place]) Oral BID ??? thiamine 100 mg Oral [...] reviewed in chart Assessment & Plan: Koko Bah is a 81 y.o. male 2 Days [...] dulcolax, miralax bid Renal - I&Os - Mack out, +voided - on home flomax Activity: as tolerated Consults: Code: Full Dispo: Floor, dispo planning care management following Dottie Hill APRN 05/17/2022 Pager: [phone] * Sary Dos Santos RN - 05/17/2022 12:16 [...] EKG showing Afib with RVR, pt placed on tele and x1 dose of metoprolol given. UA [...] ambulation]: Bedrest ?? Surveillance [continuous indirect monitoring]: Sabina Bradshawful Rounding, Nurse Knowledge Exchange at Bedside, Bed Alarm Set * Candelaria Medellin RN - 05/16/2022 4:53 PM EDT Pt stated his pain 0-6/10. He had a regular diet, tolerated well, denied nausea. Mack removed in the AM. Pt voiding adequately w/ max PVR 190. No BM this shift. Heparin infusion maintained @ 1200units/hr. Next UFH due @ 2230. Echo completed in AM. Lft lower drsg CDI. * Edward Rodírguez MD - 05/16/2022 3:33 PM EDT Vascular Surgery Progress Note Koko Bah is a 81 y.o. male with w new onset Afib who presents in transfer from [facility] with acute limb ischemia of the LLE. ?? The patient had sudden pain starting at 630 05/15/22, he presented [facility] where he was placed on heparin. He describes waxing and waning motor and sensory symptoms however he feels like he had been sensory deficits which have slightly improved. He now reports diminished but present sensation. He hasdecreased motor sensation. ?? He is a [...] the arm. His arm has baseline functioning. Active Hospital Problems Diagnosis ??? Limb ischemia [...] Intravenous BID ??? PHENobarbitaL 0.48 mg/kg/dose ([place]) Oral BID Followed by ??? [START ON 05/17/2022] PHENobarbitaL 0.24 mg/kg/dose ([place]) Oral BID Followed by ??? [START ON 05/18/2022] PHENobarbitaL 0.12 mg/kg/dose ([place]) Oral BID ??? thiamine 100 mg Oral [...] reviewed in chart Assessment & Plan: Koko Bah is a 81 y.o. male 1 Day Post-Op Left femoral cutdown with thromboembolectomy with4 compartment fasciotomies for acute limb ischemia. He has a history of prior RUE ALI after a priorcardiac procedure years ago. He has been recovering [...] dulcolax, miralax bid Renal - I&Os - Mack out, +voided - on home flomax Activity: as tolerated Consults: Code: Full Dispo: Floor, dispo planning care management following Edward Rodríguez MD 05/16/2022 Pager: [phone] * Sary Dos Santos RN - 05/16/2022 12:52 AM EDT OUTCOME EVALUATION NOTE: OUTCOME SUMMARY: Arrived from PACU at 2150. Pt is Aox4, 2L NC, dressing to the LLE CDI, L groin prevena wound vac inplace. LLE warm to touch, able to move toes, good pulse. C/o of pain with movement to the LLE overnight but refused any pain meds. Mack in place and intact. VSS, denies any [...] and ambulation]: Bedrest Surveillance [continuous indirect monitoring]: Augustine, Purposeful Rounding, Nurse Knowledge Exchange at Bedside, Bed Alarm Set * Barbie Patiño MD - 05/15/2022 7:15 PM EDT Surgery Post Op Check Koko Bah is a 81 y.o. male status post [...] intact in extremities, bilaterally symmetric. AP Koko Bah is a 81 y.o. male status post: -Left common femoral transverse arteriotomy and primary repair -Thromboembolectomy of the SFA, profunda, and common femoral artery -Left lower extremity 4 compartment fasciotomies Currently in stable condition and recovering well. - pain well controlled - hemodynamically stable - UOP adequate Barbie Patiño MD Vascular Surgery 05/15/22 * Dottie Gutierrez RN - 05/15/2022 6:49 PM EDT 163 Patient admitted to PACU. Hand off received from Torres Aguilar CRNA. care assumed. Hypotensiveby A-line, waveform dampened. Will rely on cuff. Assessments as documented. Monitors on, alarms audible and individualized to patient. 1929 PACU D/C criteria met 2129 Hand off to DION Ramirez 3 [place] documented in this encounter H&P Notes * Kerry Mcnamara MD - 05/20/2022 8:30 AM EDT Images from the original note were not included. Koko Bah is a 81 y.o. male referred for [...] (175 lb 14.8 oz) SpO2 93% BMI 26.97 kg/m?? PE NAD CV: RRR, S1 S2 physiologic [...] and potential risks of diagnostic or therapeutic catheterization were reviewed in detail with the patient. The potential for , myocardial infarction, arrhythmias, stroke, kidney failure, hemorrhage, allergic reaction to contrast, vascular complications and infection were reviewed in detail. The possibility of stenting and other percutaneous intervention, with associated risk, was reviewed. The possible need for emergent coronary artery bypass surgery wasreviewed. Alternatives were discussed and the patient's questions were answered. Following this discussion, the patient consented to the procedure and signed a form attesting to this. - Proceed as planned - Consent reviewed and signed - No obvious CI to DAPT - Sedation plan: moderate/conscious sedation - FULL CODE Kerry Mcnamara MD 05/20/2022 8:30 AM * Tim Chicas MD - 05/15/2022 11:33 AM EDT Vascular Surgery History and Physical HPI: Koko Bah is a 81M w new onset Afib who presents in transfer from [facility] with acute limb ischemia of the LLE. The patient had sudden pain starting at 630 this morning he presented [facility] where he was placed on heparin. He describes waxing and waning motor and sensory symptoms however he feels like he had beensensory deficits which have slightly improved. He now reports diminished but present sensation. He has decreased motor sensation. He is a smoker of [...] [facility] INTER[facility] RAD Social Hx: Social History Socioeconomic [...] Refill ??? fluticasone propionate (FLONASE) 50 mcg/actuation [place], Suspension as needed. ??? fluorouraciL (EFUDEX) 5 [...] ischemia of the right upper extremity presents with acute limb ischemia of the left lower extremity. Risks and benefits of embolectomy, fasciotomies have been discussed. Patient will proceed to the OR as a B case. Marked and consented. Tim Chicas MD 05/15/2022 Pager: [phone] documented in this encounter ED Notes * Lc Harris PA - 05/15/2022 1:20 PM EDT ED Provider Note HPI: Koko Bah is a 81 y.o. male with history of atrial fibrillation not on anticoagulation, andGI bleeding who presents to the Emergency Department as a transfer from [facility] with left lower extremity limb ischemia. Patient says that the symptoms started roughly 630 this morning when he developed severe pain in his left lower extremity. He went to [facility] and was started on heparin and transferred to [facility] for evaluation by vascular surgery. Review of [...] extremity earlier today and went to [facility] where it was determined that he had ischemia of the left lower extremity. Vascular surgery [facility] was contacted and he was transferred [...] the return precautions and that he should returnto the ER at any time for worsening symptoms, new symptoms, or other concerns. he agrees with the follow- up plan. Lc Harris PA 05/15/22 1328 * Jaylene Esparza RN - 05/15/2022 10:15 AM EDT Pt. Arrived in system by Lc TRIPP and Vascular surgery to write orders before pt. Arrival. Pt. Arrived at [facility] by EMS at 1150, vascular team at bedside documented in this encounter Miscellaneous Notes * Consult Note - Radha Christy RN - 05/21/2022 12:43 PM EDT Koko Bah was seen today by Cardiac Rehabilitation for: PCI, HFrEF Activity evaluation - Per PT Educational packet regarding CAD, cardiac risk factors, and managing angina given to the patient. Heart diagram reviewed. Koko is on the Vascular Surgery service for LLE limb ischemia, s/p femoral cutdown w/thromboembolectomy. Participation in an outpatient cardiac rehabilitation program at [facility] was discussed. Patient agrees to a referral to this program. Timing will depend on his recovery from Vascular surgery. He is going home w/VNA PT. I gave him the brochure for the program at [facility] for future reference. * Care Management Discharge - Judie López RN [...] information for follow-up Home Health & Hospice, [address] [facility] [id number] Transportation: family or friend will provide Functional [...] Product type* / Secondary Insurance: [facility] Prescription Coverage: Yes This plan was formulated with input from patient and team. All are in agreement with plan. IP RS has communicated with Oli - for initial BRENDAN. Shawn (Paulo López RN RN/CM - Cellphone: [phone] Pager: [phone] Covering Service RN/CM * Plan of Care - Barbie Joyce RN [...] palpable pedal pulses. Pt voiding adequate UOP. No BM this shift. 1640 - pt off unit for cardiac catheterization, transferred in hospital bed accompanied by Cath LabRN, remains on telemetry monitoring. Heparin gtt turned off at time of transfer. 182 - pt to transfer to [facility] 429 following cardiac cath, report given to DION Waldron. Family directed to [facility] locations, belongings gathered including glasses. PLAN MOVING FORWARD: Neurovasc/pulse checks Q4H Heparin gtt - next UFH 7/12 with am labs Bleeding precautions Remote telemetry, on at all times Pain management Discharge planning INDIVIDUALIZED FALL PREVENTION INTERVENTIONS: Patient-specific fall risk factors per assessment: [current deficits]: Pain, recent surgery, lines,bleeding px Assistance [level of assistance required for transfers and ambulation]: SBA FWW Supervision [direct monitoring required during toileting and ADLs]: Arms reach Surveillance [continuous indirect monitoring]: Masimo, remote telemetry, purposeful rounding Patient-specific fall prevention interventions for sensory deficits provided, if applicable: [X] N/A CPG GOAL OUTCOME EVALUATION: * Care Management - Nataly Hodge RN - [...] Environment: Others in the home: spouse, pet(s) (Colltom- Christie). Current Living Arrangements: home/apartment/condo. Accessibility Concerns: 4 step to enter. Current Functional Ability: DME used at home: commode chair, walker - rolling, raised toilet seat DME Needed at Discharge: Patient is insured through: Primary Insurance: MEDICARE Payor: MEDICARE / Plan: MEDICARE PART A & B / Product Type: *No Product type* / Secondary Insurance: [facility] Last Physical Therapy Recommendation: home [...] Office of Care Management letter from the [employer] T[employer] pertaining to rehabreferrals. ?? provide a letter describing our affiliations within the [facility] and educate about their right to choose where referrals are sent. ?? provide a list of Home Health Agencies / Durable Medical Equipment vendors which serve their preferred geographic area. ?? provided patient with [facility] Star Quality Rating handout. They have requested referrals to: [facility]. [address] [place] [id number] Note routed to a Employee Benefits Manager who will communicate referrals to facilities and provide any required information. Transportation: family or friend will provide Barriers to discharge: None Plan going forward: Patient is going for a cardiac cath today and plan will come from there. Patient was recently seen by PT and they recommend VNA at time of discharge. [facility] was routed and pended at this time. Care Management will continue to follow and assist with discharge planning and coordination of care as indicated. Anticipated Date of Discharge: 05/21/2022 Nataly RICHMOND RN CM Phone: [phone] Pager: [phone] * Plan of Care - Laney Atkins RN [...] factors per assessment: [current deficits]: Recent surgery, lines/drains, weakness, mobility ai Assistance [level of assistance required for transfers and ambulation]: 1 assist with walker Supervision [direct monitoring required during toileting and ADLs]: hands on Surveillance [continuous indirect monitoring]: Purposeful rounding, masimo, call boo in reach Patient-specific fall prevention interventions for sensory deficits provided, if applicable: [X] N/A CPG GOAL OUTCOME EVALUATION: * Consult Note - Jl Gutierrez MD - 05/17/2022 9:02 AM EDT Images from the original note were not included. Former[facility] [place] [address] [address] INPATIENT CARDIOLOGY CONSULT NOTE Date of Consultation: 05/17/2022 Admit Date: 05/15/2022 Hospital Day 2 days Reason for Consult: New afib Active Problems: Active Hospital Problems Diagnosis Limb ischemia Resolved Hospital Problems No resolved problems to display. HPI: Koko Bah is a 81 y.o. male with a PMHx significant for MVP (s/p MV repair 2000), tobacco use, HLD, who presented to [facility] from OSH on 05/15 with acute limb ischemia of LLE and was found to bein atrial fibrillation. Patient had sudden onset LLE pain on 05/15 and presented to [facility], where he was started on heparin and transferred to [facility]. Upon arrival to [facility], patient was in atrial fib with RVR to the 140s. Patient reports having no palpitations or other symptoms aside from LLE pain at the time. Patient reports that prior to this episode, he did not have any dyspnea on exertion, palpitations, chest pain, orthopnea, lower extremity swelling. Patient states that he occasionally would get sharpflank pain, but it occurred randomly and did [...] [facility] INTERVENTIONL RAD IR VERTEBROPLASTY LUMBAR MULTIPLE LEVELS 07/20/2019 IR Vertebroplasty Lumbar Multiple Levels 07/20/2019 Bobby Marshall MD [facility] INTERVENTIONL RAD IR VERTEBROPLASTY THORACIC SINGLE LEVEL 10/25/2020 IR Vertebroplasty Thoracic Single Level 10/25/2020 Matt Chisholm MD [facility] INTERVENTIONL RAD PRO EMBLC/THRMBC FEMORAL POPLITEAL AORTO-ILIAC ARTERY Left 05/15/2022 EMBOLECTOMY OR THROMBECTOMY, FEMOROPOPLITEAL, AORTOILIAC ARTERY BY LEG INCISION (WRVU 19.48) performed by Fito Summers MD at [facility] MAIN OR Allergies Allergen Reactions Aspirin Other (See Comments) GI bleed Out-Patient Medications: Medications Prior to Admission Medication Sig Dispense Refill Last Dose fluorouraciL (EFUDEX) 5 % Cream daily. CRESTOR 40 mg Tablet Take 40 mg by mouth daily. fluticasone propionate (FLONASE) 50 mcg/actuation [place], Suspension as needed. ascorbic acid, vitamin C, [...] mL Intravenous BID PHENobarbitaL 0.24 mg/kg/dose ([place]) Oral BID Followed by [START ON 05/18/2022] PHENobarbitaL 0.12 mg/kg/dose ([place]) Oral BID thiamine 100 mg Oral Daily folic acid 1,000 mcg Oral Daily multivitamin with minerals 1 tablet Oral Daily heparin (porcine) infusion 1,200 Units/hr (05/17/22 1521) Family History: No family history on file. [...] to Hosp-Admission (Current) from 05/15/2022 in 3 [facility] Office Visit from 04/17/2021 in Pain [...] mean gradient across the aortic valve is 13mmHg. JUVENAL 1.2 cm2 S/P MV repair for prolapse. There is mild mitral regurgitation. Compared with the prior TTE of 09/03/2012, moderate and LV systolic dysfunction are new. CXR: 05/16/2022: Progression of groundglass opacities at the lower lobes. Progression of diffuse bronchovascular haziness and pulmonary vascular redistribution. No radiographic evident pleural effusion. No pneumothorax. Cardiomegaly. No displaced rib fracture. Assessment/Recommendations: Koko Bah is a 81-year-old male, PMHx significant for [...] atrial fibrillation, and was asymptomatic while at 140BPM in the ED. Patient's newly reduced LVEF could be multifactorial. Patient was asymptomatic in afib w/ RVR in the ED, so tachymyopathy is possible. Patient likely also [...] rhythm control trial in the future, but yahaira l need to be anticoagulated (CHADSVASC 6) adequately prior to cardioversion. There is concern that patient's clot source may be left atrial apendage vs ventricular thrombus, this decision will affectdecision to use warfarin vs DOAC. #New onset afib [...] continue to follow Anne-Marie Larson MD Pager [phone] Clinic: [phone] 05/17/22 6:22 PM * Initial Assessments - Ifrah Bell RN - [...] spouse would be surrogate decision maker per [place] surrogate decision making law. (Only good for 180 days) Any patient receiving care at [facility] must abide by [place] law. The hierarchy [...] toilet seat Home Address confirmed as: [address] [place] [id number] Social & Family Supports: All names listed below confirmed with patient as Incorrect. Will notify oli to correct. Wifes address is same as and phone is [phone]. Extended Emergency Contact Information Primary Emergency Contact: Ursula Bah Address: [address] [place] [address] [facility] Relation: Spouse Current [...] Product type* / Secondary Insurance: [facility] Prescription Coverage: Yes Preferred Pharmacy: [id number] - [place], [place] - [address] [facility] [address] [facility] [address] [id number] - [place], [place] - [address] [facility] [address] [facility] [address] [place] Status: Patient is a : unable to assess Primary Care Provider: Bobby Das MD [phone] Patient/Caregiver Goals of Treatment: to walk again Potential Needs for Transition of Care: none noted per 05/16 IDR Transportation: family will provide Transportation Anticipated: family or friend will provide Concerns to be Addressed: no discharge needs identified Assessment: Patient is admitted to vascular surg service for left lower extremity limb ischemia Plan: Per PT OT recommendations . Has used [facility] [employer] in the past. A member of the Care Management team will continue to monitor progress, follow for continuity of care and assist with transition of care planning. Ifrah Bell RN BSN Master PrinterProj Engineer of Care Management Pager [phone] * Brief Op Note - Erin Garza MD - 05/15/2022 5:04 PM EDT Brief Operative Note Patient Name: Koko Bah : [id number] MR#: [id number] Case Date: 05/15/2022 Surgeon: Surgeon(s) and Role: [...] of surgery? No Pre-operative IV antibiotics: Ceftriaxone * Op Note - Erin Garza MD - 05/15/2022 2:08 PM EDT [facility] Operative Note Patient Name: Koko Bah : [id number] MR#: [id number] Case Date: 05/15/2022 Surgeon: Surgeon(s) and Role: [...] were placed. Preoperative antibiotics were given. A timeout was performed. Attention was then turned to the patient's left groin, which had been prepped anddraped in the usual sterile fashion. A longitudinal incision overlying the anticipated region of the common femoral artery was created with a scalpel. Dissection was carried through soft tissue with electrocautery. The inguinal ligamentwas identified superiorly and the common femoral artery pulse was palpated. The femoral sheath was opened with electrocautery and metzenbaum scissors. It was quite thick and inflamed. There was a palpable pulse superiorly. The common femoral artery distal to the circumflex arteries, profunda and SFA were dissected free from surrounding tissues and encircled with vessel loops. The femoral vein wasadditionally dissected free from surrounding tissues and controlled [...] reperfusion of the leg, we performed venous drainagevia the femoral vein. A 14 gauge angiocatheter [...] reapproximated with windy. The groin incision was dressed with a prevena wound vac. Attention was turned [...] both compartments. The lateral incision was created lateralto the anterior tibial crest and electrocautery was [...] and sharyn. The patient was extubated and ta boni to the recovery room having suffered no [...] Associated Diagnoses Orde r Schedule Referral to Home Health Outpatient Referral Routine Limb ischemia Ordered: 05/21/2022 Referral to Cardiology Outpatient Referral Routine HFrEF (heart failure with reduced ejection fraction) Paroxysmal atrial fibrillation Ordered: 05/21/2022 Referral to Smoking Cessation Program Outpatient Referral Routine Non-ST elevation myocardial infarction (NSTEMI) Limb ischemia Ordered: 05/21/2022 documented as of this encounter Procedures Procedure Name Priority Date/Time Associated Diagnosis Comments HC UNFRACTIONATED HEPARIN (HEP UFH) Routine 05/21/2022 12:35 PM EDT HEMOGRAM Routine 05/21/2022 6:15 AM EDT DIFFERENTIAL, AUTOMATED Routine 05/21/20 6:15 AM EDT HC CBC,PLT & AUTO DIFF Routine 6:15 AM EDT EKG 12-LEAD STAT 05/20/2022 7:04 PM EDT Non-ST elevation myocardial infarction (NSTEMI) CARDIAC CATHETERIZATION Routine 05/20/20 6:45 PM EDT POCT GLUCOSE Routine 05/20/2022 5:42 PM EDT HC VENIPUNCTURE STAT 05/20/2022 10:50 AM EDT HC UNFRACTIONATED HEPARIN (HEP UFH) Routine 05/20/2022 5:02 AM EDT HEMOGRAM Routine 05/20/2022 5:02 AM EDT DIFFERENTIAL, AUTOMATED Routine 05/20/20 5:02 AM EDT HC VENIPUNCTURE Routine 05/20/2022 5:02 AM EDT HC UNFRACTIONATED HEPARIN (HEP UFH) Routine 05/19/2022 3:26 AM EDT HEMOGRAM Routine 05/19/2022 3:26 AM EDT DIFFERENTIAL, AUTOMATED Routine 05/19/20 3:26 AM EDT HC CBC,PLT & AUTO DIFF Routine 3:26 AM EDT HC VENIPUNCTURE Routine 05/18/2022 8:00 PM EDT HC UNFRACTIONATED HEPARIN (HEP UFH) Routine 05/18/2022 3:34 AM EDT HEMOGRAM Routine 05/18/2022 3:34 AM EDT DIFFERENTIAL, AUTOMATED Routine 05/18/20 22 3:34 AM EDT HC CBC,PLT & AUTO DIFF Routine 2 3:34 AM EDT HEMOGRAM Routine 05/17/2022 3:33 AM EDT DIFFERENTIAL, AUTOMATED Routine 05/17/20 22 3:33 AM EDT HC VENIPUNCTURE Routine 05/17/2022 3:33 AM EDT MAGNESIUM Routine 05/17/2022 3:33 AM EDT BASIC METABOLIC PANEL Routine 05/17/2022 3:33 AM EDT URINALYSIS MICROSCOPIC EXAM STAT 05/16/2022 11:15 PM EDT URINALYSIS WITH REFLEX CULTURE STAT 05/16/2022 11:15 PM EDT HC VENIPUNCTURE Routine 05/16/2022 10:59 PM EDT XR CHEST ONE VIEW STAT 05/16/2022 9:1 4 PM EDT EKG 12-LEAD STAT 05/16/2022 8:57 PM EDT Atrial fibrillation, unspecified type HC UNFRACTIONATED HEPARIN (HEP UFH) Routine 05/16/2022 4:34 PM EDT ECHO COMPLETE W CONTRAST Routine 05/16/2022 12:49 PM EDT Atrial fibrillation, unspecified type HEMOGRAM Routine 05/16/2022 3:01 AM EDT DIFFERENTIAL, AUTOMATED Routine 05/16/20 22 3:01 AM EDT HC CBC,PLT & AUTO DIFF Routine 3:01 AM EDT HC PHOSPHORUS, SERUM Routine 05/16/2022 3:01 AM EDT HC MAGNESIUM, SERUM Routine 05/16/2022 3 :01 AM EDT BASIC METABOLIC PANEL Routine 05/16/2022 3:01 AM EDT BLOOD GAS ARTERIAL POC Routine 2 3:33 PM EDT BLOOD GAS ARTERIAL POC Routine 2 2:06 PM EDT Emblc/Thrmbc Femoral Popliteal Aorto-Iliac Artery (10860) 05/15/2022 1:20 PM EDT Acute Limb Ischemia HC PARTIAL THROMBOPLASTIN TIME STAT 05/15/2022 12:30 PM EDT HC PROTHROMBIN TIME STAT 05/15/2022 1 2:30 PM EDT GOLD TUBE HOLD Routine 05/15/2022 12:20 PM EDT TYPE AND SCREEN VALIDITY STAT 05/15/2022 12:00 PM EDT ABORH RECHECK STATUS STAT 05/15/2022 12:00 PM EDT HEMOGRAM STAT 05/15/2022 12:00 PM EDT DIFFERENTIAL, AUTOMATED STAT 05/15/20 12:00 PM EDT ABO/RH TYPING STAT 05/15/2022 12:00 PM EDT HC CBC,PLT & AUTO DIFF STAT 12:00 PM EDT ANTIBODY SCREEN STAT 05/15/2022 12:00 PM EDT HC ANTIBODY DETECTION,CAPTURE-R STAT 05/15/2022 12:00 PM EDT CK STAT 05/15/2022 12:00 PM EDT BASIC METABOLIC PANEL STAT 05/15/2022 12:00 PM EDT EMBOLECTOMY/THROMBECT, FEMOROPOPLITEAL, AORTOILIAC ARTERY BY LEG INCIS Routine 05/15/2022 10:42 AM EDT documented in this encounter Results * JOSSELYN, legs, multiple levels (06/13/2022 7:13 AM EDT) Pathologist [facility] Text Report Department: Vascular Surgery Lab Patient: [id number] (KOKO BAH) CPT: 93706 Referring Physician: FITO SUMMERS ?? Phone: Indications: s/p L MANAGER SOURCING endart. Diabetes mellitus: no Findings: Right ?Pressure [...] AM EDT Fito Summers MD VASCULAR ORDERABLES MEGAN * [place] 48 Hrs-15 Days (05/21/2022 4:33 PM EDT) Anatomical Region Laterality Modality Other Narrative 05/31/2022 1:11 PM EDT Indication: Paroxysmal atrial fibrillation Analysis time 7 days Maximum heart rate 185 bpm Minimum heart rate 55 bpm Average heart rate 99 bpm Permanent atrial fibrillation was present. ??Heart rates ranged from 55 to 185 bpm with an average of 99 bpm. ??Isolated ventricular ectopy was present. ??Rates of the atrial fibrillation trended toward more rapid. Impression: 1. ??Continuous atrial fibrillation with episodes of rapid ventricular response Fito Summers MD CARDIAC SERVICES ORD ERABLES * Heparin (unfractionated) Level (05/21/2022 12:35 PM EDT) UF Heparin 0.42 IU/mL [facility] Comment: Heparin (anti-Xa) levels should [...] cardiac surgery): 0.1 ? 0.3 IU/mL Blood 05/21/2022 12:3 5 PM EDT 05/21/2022 12:43 PM EDT Narrative Resulting Agency Comment Spec In Lab Fito Summers MD HEMATOLOGY ORDERABLE S Performing Organization Address City/[facility]/[place] [address] * Differential, Automated (05/21/2022 6:15 AM EDT) Neutrophil % 58.8 % [facility] Neutrophil Absolute 3.97 1.70 - 6.10 x10(3)/[facility] Lymph % 25.2 % [facility] Lymphocytes Abs 1.7 0.9 - 3.2 x10(3)/[facility] Monocyte % 12.9 % [facility] Monocyte Abs 0.9 0.3 - 0.9 x10(3)/[facility] Eos % 2.1 % [facility] Eosinophils Abs 0.1 0.0 - 0.4 x10(3)/[facility] Basophil % 0.4 % [facility] Baso Absolute 0.0 0.0 - 0.1 x10(3)/[facility] Immature Gran % 0.60 % [facility] Comment: Immature granulocytes(IG's)percentage and absolute count will include metamyelocytes, myelocytes, and promyelocytes. Blood smears from CBCs yielding IG's will be scanned manually for concordance. If this scan disagrees with the automated IG or if promyelocytes are noted, a manual differential will be performed. Immature Gran Absolute 0.04 0.00 - 0.04 x10(3)/[facility] Blood 05/21/2022 6:15 AM EDT 05/21/2022 6:38 AM EDT Narrative Resulting Agency Comment Spec In Lab Edward Rodríguez MD HEMATOLOGY ORDER NICK Performing Organization Address City/[facility]/ZIP Co de Phone Number [facility] [place] [address] * (ABNORMAL) Hemogram (05/21/2022 6:15 AM EDT) Pathologist [facility] White Blood Cell 6.8 4.0 - 9.5 x10(3)/ L [facility] Red Blood Cell 3.59(L) 4.58 - 5.54 x10(6)/[facility] Hemoglobin 11.8(L) 13.7 - 16.5 g/dL [facility] Hematocrit 34.5(L) 40.5 - 48.5 % [facility] Mean Cell Volume 96.1(H) 82.9 - 93.1 [facility] Mean Cell Hemoglobin 32.9(H) 27.5 - 32.1 pg [facility] Mean Cell Hemoglobin Concentration 34.2 32.0 - 35.7 g/dL [facility] Platelet 198 145 - 357 x10(3)/[facility] LAB[facility] RDW Standard Deviation 44.9 36.0 - 45.0 [facility] RDW coefficient of variation 12.6 11.4 - 13.8 % [facility] Mean Platelet Volume 10.0 7.6 - 12.9 [facility] NRBC% auto 0.3 % [facility] NRBC Absolute 0.020(H) 0.000 - 0.000 x10(3)/[facility] Blood 05/21/2022 6:15 AM EDT 05/21/2022 6:38 AM EDT Narrative Resulting Agency Comment Spec In Lab Edward Rodrgíuez MD HEMATOLOGY ORDER NICK [facility] [address] * EKG 12 Lead (05/20/2022 7:04 PM EDT) Ventricular rate 101 BPM MUSE SYSTEM QRS Duration 116 ms MUSE SYSTEM Q-T Interval 378 ms MUSE SYSTEM QTC Calculated (Bezet) 490 ms MUSE SYSTEM Calculated R Jbphh -53 degrees MUSE SYSTEM Calculated T Jbphh 101 degrees MUSE SYSTEM INTERPRETATION Atrial fibrillation with rapid ventricular response Left anterior fascicular block Nonspecific ST and T wave abnormality Abnormal ECG When compared with ECG of 16-MAY-2022 20:57, No significant change was found Confirmed by MD Juli, Damian ([id number]) on 05/21/2022 1:14:51 PM MUSE SYSTEM 05/20/2022 7:04 PM EDT 05/21/2022 1:14 PM EDT Fito Summers MD ECG ORDERABLES MUSE SYSTEM * CARDIAC CATHETERIZATION (05/20/2022 6:45 PM EDT) Anatomical Region Laterality Modality Other Narrative 05/20/2022 7:09 PM EDT ?[facility] ? Cardiac Catheterization/Intervention Report ? Patient Name: Koko Bah. ? Procedure Date: 05/20/2022 ? A #: [id number] ? Primary Physician: Abundio Servin ? Case #: 22-2024 ? File Name: [id number] ? Catheterization Order Number: [id number] ? [facility] ? Final Report [place], [place] ? Patient Name: ? Koko Sullivan. Bah ? ID#: ?[id number] ? : ?1940 ? Procedure Date: ? May 20, 2022 ?Case #: ? 22-2024 ? Room: ? 1 ? Case Physician: ? Abundio Servin M.D. ? Start: ?17:16 ? Admission: ??05/15/2022 ? Referring Physician: ??Julee Diego ?Discharge: ??05/21/2022 ? Procedures: ?* Coronary Angiography ?* Left Heart Catheterization ?* Coronary Ultrasound ?* Coronary Angioplasty ?* Coronary Stent Insertion ? History ?Koko Bah is a 81 year old man. He has hypertension. The ?patient's smoking status is Current with Current - Some Days frequency, ?using cigarettes. He has hypercholesterolemia managed with lipid therapy. ?The patient has a history of an ejection fraction less than or equal to ?35% and right ventricular failure. He has a history of CHF. The CHF is ?NYHA Functional Class III, is newly diagnosed and is classified as ?Systolic. 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 He also has a history of peripheral vascular ?disease with critical limb ischemia. Prior to the initiation of this ?procedure, the patient was designated as ASA Class IV. The [facility] clinical ?frailty scale is 3: Managing Well. ? Diagnostic Tests: ?Prior Coronary Angiography: ? Prior coronary angiography was performed on 11/10/2000 and showed ? [...] procedure was Urgent. 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 Chest pain symptom assessment was: ?Typical Angina. ? Technique: ?A 6 SLFr sheath was inserted in the right radial artery utilizing the ?Seldinger technique. The left coronary artery was injected utilizing a ?4Fr TIG 4.0 catheter. A 4Fr TIG 4.0 catheter was used to inject the right ?coronary artery. Left ventricular pressure was performed utilizing a 4Fr ?TIG 4.0 catheter. Coronary angioplasty and coronary stent insertion were ?performed and the equipment utilized will be described in the ?intervention summary section. 4,500 units of heparin were administered. A ?total of 250cc of Iso-Ilda were opened, 189cc of Iso-Ilda were administered ?and 61cc of Iso-Ilda were wasted. Radiation: Fluoro time was 14.1 minutes, ?dose area product was 44,500 mGYcm2 and air kerma was 752 mGY. See the ?case log for additional details. ?The patient received the following medications prior to and during the ?procedure: ? Unfractionated Heparin and Clopidogrel. ? Hemodynamics: ?Left Heart Pressures ? Resting: ? Syst Diast ? EDP ?a ?v ? m ?Ao 83 ?47 ?59 ?LV 90 ?5 ? Coronary Angiography: ?Dominance: Right ?Left Main ? There was mild diffuse (<=25% stenosis) disease of the entire vessel ? segment of the left main artery. ?Left Anterior Descending ? There was a 25% diffuse stenosis of the proximal segment of the left ? anterior descending artery (LAD). ?Left Circumflex ? There was a 70% stenosis of the mid segment of the left circumflex ? artery (LCX). ? There was a 90% diffuse stenosis of the ostial segment of the first ? obtuse marginal branch (OM1) of the LCX. ??Distal flow was decreased ? (ALE Grade 1). ?Right Coronary Artery ? There was a 45% stenosis of the mid segment of the right coronary ? artery (RCA). ??The distal segment of the RCA had 90% stenosis. ?Ramus ? There was mild diffuse (<=25% stenosis) disease of the entire vessel ? segment of the ramus. ? Intravascular Imaging/Physiology: ?Intravascular Ultrasound was performed in the ostial OM1 using a 6 Fr EBU ?3.5 guiding catheter and a 3.5 Fr [place] [facility] ??20 Mhz. ??Imaging ?was successful. ??Image quality was excellent. ??The ostial OM1 showed ?moderate diffuse atherosclerotic plaque. ?Post Intervention: The stent was well expanded and apposed. ? Indication for Intervention: ?Coronary intervention was indicated for primary therapy for an acute ?myocardial infarction. The priority for the procedure was Urgent. The ?NCDR indication for the procedure was NSTE-ACS. LVEF within one week was ?28%. Syntax Score was Low. Initial PCI was performed for multivessel ?disease. ? Intervention Summary: ?Left Circumflex Artery ? Mid 70% ? Angioplasty was performed on the 70% stenosis in the mid ? segment of the LCX. This was a de segun lesion. According to ? the ACC/AHA classification system, this lesion was a type B1 ? moderate risk lesion. A guidewire was placed across this ? lesion. Vessel flow pre intervention was ALE 3. Lesion length ? was 10mm. ? Angioplasty was accomplished through a 6 Fr EBU 3.5 guide ? utilizing an EUPHORA 12 MM balloon with a maximum size of ? 2.50mm and a maximum inflation pressure of 12 atmospheres. ? The final outcome was defined as successful. The residual ? stenosis following this intervention was 15%. The final ALE ? flow was 3. ?First Obtuse Marginal Branch of the LCX ? Ostial 90% ? Stent insertion was performed on the 90% stenosis in the ? ostial segment of the OM1. This was a de segun lesion. This ? lesion was designated a type C high risk lesion based on ? ACC/AHA classification system. Primary prevention of ? restenosis was the indication for stent insertion. This was ? the culprit lesion. A guidewire was placed across this lesion. ? Vessel flow pre intervention was ALE 1. Lesion length was ? 25mm. The lesion involves a bifurcation with the LCX. This ? bifurcation lesion was treated with a single stent, side ? branch dilated post stent technique and a final kissing ? balloon post-dilation. ? Stent insertion was accomplished through a 6 Fr. EBU 3.5 ? guide. ??The lesion was predilated with a 2.00mm EUPHORA 15 MM ? balloon with a maximum inflation pressure of 12 atmospheres. ? A premounted 2.75 x 30 mm Rudy [place] (AMPARO) was deployed ? with a maximum inflation pressure of 12 atmospheres. ? Following stent deployment, the lesion was dilated using a ? 3.50mm NC EUPHORA 08 MM balloon with a maximum inflation ? pressure of 9 atmospheres. ? The final outcome was defined as successful. A coronary ? arteriolar vasodilator was administered as part of the ? intervention on this lesion. There was no residual stenosis ? following this intervention. The final ALE flow was 3. ? Vascular Access: ?Vascular Access Management: ? Mechanical Compression of the right radial artery access site was ? performed. ? Dual Antiplatelet (DAPT) Recommendations: ?Drug eluting stent (AMPARO) inserted. ?P2Y12 Loading dose Clopidogrel 600 mg PO given in lab. ?Recommended anti-platelet/anti-thrombotic regimen: ?Start aspirin 81 mg daily now and continue for 7 days then stop. Restart ?aspirin 81 mg daily in 12 months and continue unless contraindicated. ?Start clopidogrel 75 mg daily now and continue for 12 months then stop. ?Start apixaban 5 mg twice daily now and continue for indefinitely. ?These recommendations are made at the time of the intervention. Patient ?and provider preferences or a changing clinical situation may require ?modification of this regimen. Consult [facility] Interventional Cardiology for ?questions. ?The 1 year bleeding risk as calculated by the PRECISE DAPT score is ?Moderate risk. ? 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 ? Complications/Events: ?The patient had no complications during these procedures. ?The attending physician was present for the entire procedure. ?Dr. Abundio Servin M.D. was present during the moderate sedation ?intraservice time as documented by the sedation nurse. ??Case time = 01:19. ?Dr. Abundio Servin M.D. performed the coronary angiography, left heart ?catheterization, IVUS # coronary, angioplasty-coronary and stent ?insertion-coronary. ? Abundio Servin M.D. ? Electronically Signed by: Abundio Servin M.D. ? Report Finalized: 05/20/2022 ??19:01 ? Report Last Ammended: 07/12/2022 ??10:16 ? Procedure Note Abundio Servin MD - 07/12/2022 [facility] Cardiac Catheterization/Intervention Report Patient Name: Koko Bah Procedure Date: 05/20/2022 A #: [id number] Primary Physician: Abundio Servin Case #: File Name: [id number] Catheterization Order Number: [id number] [facility] FinalReport [place], [place] Patient Name: Koko Bah ID#:[id number] :1940 Procedure Date: May 20, 2022 Case #: Room: 1 Case Physician: Abundio Servin M.D. Start: 17:16 Admission:05/15/2022 Referring Physician: Julee Diego Discharge:05/21/2022 Procedures: * Coronary Angiography * Left Heart Catheterization * Coronary Ultrasound * Coronary Angioplasty * Coronary Stent Insertion History Koko Bah is a 81 year old man. He has hypertension. The patient's smoking status is Current with Current - Some Daysfrequency, using cigarettes. He has hypercholesterolemia managed with lipidtherapy. The patient has a history of an ejection fraction less than or equalto 35% and right ventricular failure. He has a history of CHF. The CHFis NYHA Functional Class III, is newly diagnosed and is classified as Systolic. He has a history of a mitral valve repair. The patient hasa calcified ascending aorta. He also has a history of peripheralvascular disease with critical limb ischemia. Prior to the initiation of this procedure, the patient was designated as ASA Class IV. The CSHAclinical frailty scale is 3: Managing Well. Diagnostic Tests: Prior Coronary Angiography: Prior coronary angiography was performed on 11/10/2000 andshowed non-obstructive CAD. LV ejection fraction within 6 months is28%. Electrocardiography: EKG was assessed by ECG. EKG was Abnormal. EKG showed new onset atrial fibrillation with heart rate 130. Medications Prior to Procedure: Angiotensin II Receptor Norma, Beta Norma and Statin. Indications for Diagnostic Cath: The priority of the diagnostic procedure was Urgent. 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 Chest pain symptom assessmentwas: Typical Angina. Technique: A 6 SLFr sheath was inserted in the right radial artery utilizingthe Seldinger technique. The left coronary artery was injected utilizinga 4Fr TIG 4.0 catheter. A 4Fr TIG 4.0 catheter was used to inject theright coronary artery. Left ventricular pressure was performed utilizing a4Fr TIG 4.0 catheter. Coronary angioplasty and coronary stent insertionwere performed and the equipment utilized will be described in the intervention summary section. 4,500 units of heparin wereadministered. A total of 250cc of Iso-Ilda were opened, 189cc of Iso-Ilda wereadministered and 61cc of Iso-Ilda were wasted. Radiation: Fluoro time was 14.1minutes, dose area product was 44,500 mGYcm2 and air kerma was 752 mGY. Seethe case log for additional details. The patient received the following medications prior to and duringthe procedure: Unfractionated Heparin and Clopidogrel. Hemodynamics: Left Heart Pressures Resting: Syst Diast EDP a v m Ao 83 47 59 LV 90 5 Coronary Angiography: Dominance: Right Left Main There was mild diffuse (<=25% stenosis) disease of the entirevessel segment of the left main artery. Left Anterior Descending There was a 25% diffuse stenosis of the proximal segment of theleft anterior descending artery (LAD). Left Circumflex There was a 70% stenosis of the mid segment of the leftcircumflex artery (LCX). There was a 90% diffuse stenosis of the ostial segment of thefirst obtuse marginal branch (OM1) of the LCX. Distal flow wasdecreased (ALE Grade 1). Right Coronary Artery There was a 45% stenosis of the mid segment of the rightcoronary artery (RCA). The distal segment of the RCA had 90% stenosis. Ramus There was mild diffuse (<=25% stenosis) disease of the entirevessel segment of the ramus. Intravascular Imaging/Physiology: Intravascular Ultrasound was performed in the ostial OM1 using a 6Fr EBU 3.5 guiding catheter and a 3.5 Fr [place] [facility] [place] [facility] 20 Mhz.Imaging was successful. Image quality was excellent. The ostial OM1 showed moderate diffuse atherosclerotic plaque. Post Intervention: The stent was well expanded and apposed. Indication for Intervention: Coronary intervention was indicated for primary therapy for an acute myocardial infarction. The priority for the procedure was Urgent.The NCDR indication for the procedure was NSTE-ACS. LVEF within one weekwas 28%. Syntax Score was Low. Initial PCI was performed for multivessel disease. Intervention Summary: Left Circumflex Artery Mid 70% Angioplasty was performed on the 70% stenosis in the mid segment of the LCX. This was a de segun lesion. Accordingto the ACC/AHA classification system, this lesion was a typeB1 moderate risk lesion. A guidewire was placed across this lesion. Vessel flow pre intervention was ALE 3. Lesionlength was 10mm. Angioplasty was accomplished through a 6 Fr EBU 3.5 guide utilizing an EUPHORA 12 MM balloon with a maximum size of 2.50mm and a maximum inflation pressure of 12atmospheres. The final outcome was defined as successful. The residual stenosis following this intervention was 15%. The finalTIMI flow was 3. First Obtuse Marginal Branch of the LCX Ostial 90% Stent insertion was performed on the 90% stenosis in the ostial segment of the OM1. This was a de segun lesion.This lesion was designated a type C high risk lesion based on ACC/AHA classification system. Primary prevention of restenosis was the indication for stent insertion. Thiswas the culprit lesion. A guidewire was placed across thislesion. Vessel flow pre intervention was ALE 1. Lesion lengthwas 25mm. The lesion involves a bifurcation with the LCX.This bifurcation lesion was treated with a single stent, side branch dilated post stent technique and a final kissing balloon post-dilation. Stent insertion was accomplished through a 6 Fr. EBU 3.5 guide. The lesion was predilated with a 2.00mm [id number] MM balloon with a maximum inflation pressure of 12atmospheres. A premounted 2.75 x 30 mm [place] (AMPARO) wasdeployed with a maximum inflation pressure of 12 atmospheres. Following stent deployment, the lesion was dilated usinga 3.50mm NC EUPHORA 08 MM balloon with a maximum inflation pressure of 9 atmospheres. The final outcome was defined as successful. A coronary arteriolar vasodilator was administered as part of the intervention on this lesion. There was no residualstenosis following this intervention. The final ALE flow was 3. Vascular Access: Vascular Access Management: Mechanical Compression of the right radial artery access sitewas performed. Dual Antiplatelet (DAPT) Recommendations: Drug eluting stent (AMPARO) inserted. P2Y12 Loading dose Clopidogrel 600 mg PO given in lab. Recommended anti-platelet/anti-thrombotic regimen: Start aspirin 81 mg daily now and continue for 7 days then stop.Restart aspirin 81 mg daily in 12 months and continue unlesscontraindicated. Start clopidogrel 75 mg daily now and continue for 12 months thenstop. Start apixaban 5 mg twice daily now and continue for indefinitely. These recommendations are made at the time of the intervention.Patient and provider preferences or a changing clinical situation mayrequire modification of this regimen. Consult [facility] Interventional Cardiologyfor questions. The 1 year bleeding risk as calculated by the PRECISE DAPT score is Moderate risk. 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 Complications/Events: The patient had no complications during these procedures. The attending physician was present for the entire procedure. Dr. Abundio Servin M.D. was present during the moderate sedation intraservice time as documented by the sedation nurse. Case time =01:19. Dr. Abundio Servin M.D. performed the coronary angiography, leftheart catheterization, IVUS # coronary, angioplasty-coronary and stent insertion-coronary. Abundio Servin M.D. Electronically Signed by: Abundio Servin M.D. Report Finalized: 05/20/2022 19:01 Report Last Ammended: 07/12/2022 10:16 Abundio Servin MD CARDIAC CATH ORDERAB LES * POCT Glucose (05/20/2022 5:42 PM EDT) [facility] Glucose, POC 123 65 - 199 mg/dL [facility] Comment: Supplemental ranges: <140 mg/dL before meals <180 mg/dL all other times of the day Blood 05/20/2022 5:42 PM EDT 05/20/2022 5:42 PM EDT Fito Summers MD POINT OF CARE TEST O RDERABLES [facility] [place] [address] * (ABNORMAL) BMP w/fasting Glucose (05/20/2022 10:50 AM EDT) Glucose Fasting 152(H) 65 - 99 mg/dL [facility] Comment: ?Fasting* Glucose Interpretive Criteria Normal ?65-99 mg/dL Impaired Fasting glucose ?100-125 mg/dL Consistent with Diabetes Mellitus ? >or= 126 mg/dL *Fasting is defined as no caloric intake for at least 8 hours In the absence of unequivocal hyperglycemia a plasma glucose value of >or= 126 mg/dL should be repeated on a subsequent day. Diagnosis and Classification of Diabetes Mellitus, Position Statement from the [place] [employer]. ??Diabetes Care, Volume 33, Supplement 1, Nov 2009 Blood Urea Nitrogen 11 10 - 20 mg/dL [facility] Creatinine 0.63(L) 0.80 - 1.50 mg/dL [facility] [...] questions. Chloride 103 98 - 107 mmol/L [facility] Carbon Dioxide 24 22 - 31 mmol/L [facility] Anion Gap 10 5 - 15 mmol/L [facility] Calcium 8.7 8.5 - 10.5 mg/dL [facility] Est Glomerular Filtration Rate 97 >=60 mL/min/1. 73 m?? [facility] Comment: This patient's estimated [...] and symptoms in addition to eGFR. Blood 05/20/2022 10:5 0 AM EDT 05/20/2022 11:18 AM EDT Narrative Resulting Agency Comment Spec In Lab Fito Summers MD CHEMISTRY ORDERABLES Performing Organization Address [facility]/ZIP Co de Phone Number [facility] [place] [address] * Heparin (unfractionated) Level (05/20/2022 5:02 AM EDT) UF Heparin 0.57 IU/mL [facility] Comment: Heparin (anti-Xa) levels should [...] cardiac surgery): 0.1 ? 0.3 IU/mL Blood 05/20/2022 5:02 AM EDT 05/20/2022 5:19 AM EDT Narrative Resulting Agency Comment Spec In Lab Fito Summers MD HEMATOLOGY ORDERABLE S Performing Organization Address City/[facility]/ZIP Co de Phone Number [facility] [place] [address] * (ABNORMAL) Differential, Automated (05/20/2022 5:02 AM EDT) Neutrophil % 58.1 % [facility] Neutrophil Absolute 4.52 1.70 - 6.10 x10(3)/[facility] Lymph % 24.1 % [facility] Lymphocytes Abs 1.9 0.9 - 3.2 x10(3)/[facility] Monocyte % 13.8 % [facility] Monocyte Abs 1.1(H) 0.3 - 0.9 x10(3)/[facility] Eos % 2.6 % [facility] Eosinophils Abs 0.2 0.0 - 0.4 x10(3)/[facility] Basophil % 0.8 % [facility] Baso Absolute 0.1 0.0 - 0.1 x10(3)/[facility] Immature Gran % 0.60 % [facility] Comment: Immature granulocytes(IG's)percentage and absolute count will include metamyelocytes, myelocytes, and promyelocytes. Blood smears from CBCs yielding IG's will be scanned manually for concordance. If this scan disagrees with the automated IG or if promyelocytes are noted, a manual differential will be performed. Immature Gran Absolute 0.05(H) 0.00 - 0.04 x10(3)/[facility] Blood 05/20/2022 5:02 AM EDT 05/20/2022 5:19 AM EDT Narrative Resulting Agency Comment Spec In Lab Edward Rodríguez MD HEMATOLOGY ORDER NICK [facility] [place] [address] * (ABNORMAL) Hemogram (05/20/2022 5:02 AM EDT) Pathologist [facility] White Blood Cell 7.8 4.0 - 9.5 x10(3)/mc L [facility] Red Blood Cell 3.53(L) 4.58 - 5.54 x10(6)/mc L [facility] Hemoglobin 11.4(L) 13.7 - 16.5 g/dL [facility] Hematocrit 34.3(L) 40.5 - 48.5 % [facility] Mean Cell Volume 97.2(H) 82.9 - 93.1 fL [facility] Mean Cell Hemoglobin 32.3(H) 27.5 - 32.1 pg [facility] Mean Cell Hemoglobin Concentration 33.2 32.0 - 35.7 g/dL [facility] Platelet 181 145 - 357 x10(3)/[facility] RDW Standard Deviation 46.4(H) 36.0 - 45.0 fL [facility] RDW coefficient of variation 13.0 11.4 - 13.8 % [facility] Mean Platelet Volume 10.4 7.6 - 12.9 [facility] NRBC% auto 0.0 % [facility] NRBC Absolute 0.000 0.000 - 0.000 x10(3)/[facility] Blood 05/20/2022 5:02 AM EDT 05/20/2022 5:19 AM EDT Narrative Resulting Agency Comment Spec In Lab Edward Rodríguez MD HEMATOLOGY ORDER NICK [facility] [address] * Heparin (unfractionated) Level (05/19/2022 3:26 AM EDT) UF Heparin 0.59 IU/mL [facility] Comment: Heparin (anti-Xa) levels should [...] cardiac surgery): 0.1 ? 0.3 IU/mL Blood 05/19/2022 3:26 AM EDT 05/19/2022 3:59 AM EDT Narrative Resulting Agency Comment Spec In Lab Fito Summers MD HEMATOLOGY ORDERABLE S Performing Organization Address City/State/[facility] Co de Phone Number [facility] [address] * (ABNORMAL) Differential, Automated (05/19/2022 3:26 AM EDT) Neutrophil % 62.1 % [facility] Neutrophil Absolute 4.59 1.70 - 6.10 x10(3)/mc L [facility] Lymph % 22.1 % [facility] Lymphocytes Abs 1.6 0.9 - 3.2 x10(3)/mc L [facility] Monocyte % 13.5 % [facility] Monocyte Abs 1.0(H) 0.3 - 0.9 x10(3)/mc L [facility] Eos % 1.3 % [facility] Eosinophils Abs 0.1 0.0 - 0.4 x10(3)/mc L [facility] Basophil % 0.5 % [facility] Baso Absolute 0.0 0.0 - 0.1 x10(3)/mc L [facility] Immature Gran % 0.50 % [facility] Comment: Immature granulocytes(IG's)percentage and absolute count will include metamyelocytes, myelocytes, and promyelocytes. Blood smears from CBCs yielding IG's will be scanned manually for concordance. If this scan disagrees with the automated IG or if promyelocytes are noted, a manual differential will be performed. Immature Gran Absolute 0.04 0.00 - 0.04 x10(3)/mc L [facility] Blood 05/19/2022 3:26 AM EDT 05/19/2022 3:59 AM EDT Narrative Resulting Agency Comment Spec In Lab Edward Rodríguez MD HEMATOLOGY ORDER NICK [facility] [place] [address] * (ABNORMAL) Hemogram (05/19/2022 3:26 AM EDT) White Blood Cell 7.4 4.0 - 9.5 x10(3)/mc L [facility] Red Blood Cell 3.74(L) 4.58 - 5.54 x10(6)/mc [facility] Hemoglobin 12.1(L) 13.7 - 16.5 g/dL [facility] Hematocrit 36.4(L) 40.5 - 48.5 % [facility] Mean Cell Volume 97.3(H) 82.9 - 93.1 [facility] Mean Cell Hemoglobin 32.4(H) 27.5 - 32.1 pg [facility] Mean Cell Hemoglobin Concentration 33.2 32.0 - 35.7 g/dL [facility] Platelet 168 145 - 357 x10(3)/mc L [facility] RDW Standard Deviation 46.9(H) 36.0 - 45.0 [facility] RDW coefficient of variation 13.0 11.4 - 13.8 % [facility] Mean Platelet Volume 10.5 7.6 - 12.9 [facility] NRBC% auto 0.0 % [facility] NRBC Absolute 0.000 0.000 - 0.000 x10(3)/mc L [facility] Blood 05/19/2022 3:26 AM EDT 05/19/2022 3:59 AM EDT Narrative Resulting Agency Comment Spec In Lab Edward Rodríguez MD HEMATOLOGY ORDER NICK Performing Organization Address City/[facility]/ZIP Co de Phone Number [facility] [place] [address] * TSH (05/18/2022 8:00 PM EDT) [facility] Thyroid Stimulating Hormone 2.27 0.27 - 4.20 mcIU/mL [facility] Comment: Reference Interval (mcIU/mL): Females: ??First Trimester: 0.23-3.88 ??Second Trimester: 0.22-3.90 ??Third Trimester: 0.44-4.66 Blood 05/18/2022 8:00 PM EDT 05/18/2022 8:06 PM EDT Narrative Resulting Agency Comment Spec In Lab Ftio Summers MD CHEMISTRY ORDERABLES Performing Organization Address [facility]/ZIP Co de Phone Number [facility] [place] [address] * (ABNORMAL) Differential, Automated (05/18/2022 3:34 AM EDT) [facility] Neutrophil % 67.2 % [facility] Neutrophil Absolute 5.89 1.70 - 6.10 x10(3)/mc L [facility] Lymph % 17.1 % [facility] Lymphocytes Abs 1.5 0.9 - 3.2 x10(3)/mc L [facility] Monocyte % 13.6 % [facility] Monocyte Abs 1.2(H) 0.3 - 0.9 x10(3)/mc L [facility] Eos % 1.0 % [facility] Eosinophils Abs 0.1 0.0 - 0.4 x10(3)/mc L [facility] Basophil % 0.6 % [facility] Baso Absolute 0.0 0.0 - 0.1 x10(3)/[facility] Immature Gran % 0.50 % [facility] Comment: Immature granulocytes(IG's)percentage and absolute count will include metamyelocytes, myelocytes, and promyelocytes. Blood smears from CBCs yielding IG's will be scanned manually for concordance. If this scan disagrees with the automated IG or if promyelocytes are noted, a manual differential will be performed. Immature Gran Absolute 0.04 0.00 - 0.04 x10(3)/[facility] Blood 05/18/2022 3:34 AM EDT 05/18/2022 3:48 AM EDT Narrative Resulting Agency Comment Spec In Lab Edward Rodríguez MD HEMATOLOGY ORDER NICK Performing Organization Address City/State/[facility] Co de Phone Number [facility] [address] * (ABNORMAL) Hemogram (05/18/2022 3:34 AM EDT) White Blood Cell 8.8 4.0 - 9.5 x10(3)/[facility] Red Blood Cell 3.45(L) 4.58 - 5.54 x10(6)/[facility] Hemoglobin 11.2(L) 13.7 - 16.5 g/dL [facility] Hematocrit 33.0(L) 40.5 - 48.5 % [facility] Mean Cell Volume 95.7(H) 82.9 - 93.1 fL [facility] Mean Cell Hemoglobin 32.5(H) 27.5 - 32.1 pg [facility] Mean Cell Hemoglobin Concentration 33.9 32.0 - 35.7 g/dL [facility] Platelet 130(L) 145 - 357 x10(3)/[facility] RDW Standard Deviation 46.2(H) 36.0 - 45.0 fL [facility] RDW coefficient of variation 13.2 11.4 - 13.8 % [facility] Mean Platelet Volume 10.8 7.6 - 12.9 fL [facility] NRBC% auto 0.0 % [facility] NRBC Absolute 0.000 0.000 - 0.000 x10(3)/mc L [facility] Blood 05/18/2022 3:34 AM EDT 05/18/2022 3:48 AM EDT Narrative Resulting Agency Comment Spec In Lab Edward Rodríguez MD HEMATOLOGY ORDER NICK Performing Organization Address [facility]/ZIP Co de Phone Number [facility] [address] * Heparin (unfractionated) Level (05/18/2022 3:34 AM EDT) UF Heparin 0.59 IU/mL [facility] Comment: Heparin (anti-Xa) levels should [...] cardiac surgery): 0.1 ? 0.3 IU/mL Blood 05/18/2022 3:34 AM EDT 05/18/2022 3:48 AM EDT Narrative Resulting Agency Comment Spec In Lab Fito Summers MD HEMATOLOGY ORDERABLE S Performing Organization Address City/[facility]/ZIP Co de Phone Number [facility] [address] * Magnesium (05/17/2022 3:33 AM EDT) Magnesium 0.76 0.69 - 1.07 mmol/L [facility] Blood Venous Draw / Unknown 05/17/2022 3:33 AM EDT 05/17/2022 4:05 AM EDT Narrative Resulting Agency Comment Spec In Lab Dottie Kurt Hill APRN CHEMISTRY ORDERABL ES [facility] [place] [address] * (ABNORMAL) Basic Metabolic Panel (non-fasting) (05/17/2022 3:33 AM EDT) Glucose 158 65 - 199 mg/dL [facility] Comment:Diabetes: >=200 mg/d L plus symptoms Blood Urea Nitrogen 12 10 - 20 mg/dL [facility] Creatinine 0.74(L) 0.80 - 1.50 mg/dL [facility] [...] questions. Chloride 102 98 - 107 mmol/L [facility] Carbon Dioxide 25 22 - 31 mmol/L [facility] Anion Gap 10 5 - 15 mmol/L [facility] Calcium 8.4(L) 8.5 - 10.5 mg/dL [facility] Est Glomerular Filtration Rate 92 >=60 mL/min/1. 73 m?? [facility] Comment: This [...] and symptoms in addition to eGFR. Blood 05/17/2022 3:33 AM EDT 05/17/2022 3:53 AM EDT Narrative Resulting Agency Comment Spec In Lab Fito Summers MD CHEMISTRY ORDERABLES [facility] [address] * (ABNORMAL) Differential, Automated (05/17/2022 3:33 AM EDT) Neutrophil % 65.5 % [facility] Neutrophil Absolute 6.84(H) 1.70 - 6.10 x10(3)/mc L [facility] Lymph % 19.7 % [facility] Lymphocytes Abs 2.1 0.9 - 3.2 x10(3)/mc L [facility] Monocyte % 13.1 % [facility] Monocyte Abs 1.4(H) 0.3 - 0.9 x10(3)/mc L [facility] Eos % 0.6 % [facility] Eosinophils Abs 0.1 0.0 - 0.4 x10(3)/mc L [facility] Basophil % 0.6 % [facility] Baso Absolute 0.1 0.0 - 0.1 x10(3)/mc L [facility] Immature Gran % 0.50 % [facility] Comment: Immature granulocytes(IG's)percentage and absolute count will include metamyelocytes, myelocytes, and promyelocytes. Blood smears from CBCs yielding IG's will be scanned manually for concordance. If this scan disagrees with the automated IG or if promyelocytes are noted, a manual differential will be performed. Immature Gran Absolute 0.05(H) 0.00 - 0.04 x10(3)/ L [facility] Blood 05/17/2022 3:33 AM EDT 05/17/2022 3:53 AM EDT Narrative Resulting Agency Comment Spec In Lab Edward Rodríguez MD HEMATOLOGY ORDER NICK [facility] [place] [address] * (ABNORMAL) Hemogram (05/17/2022 3:33 AM EDT) White Blood Cell 10.4(H) 4.0 - 9.5 x10(3)/[facility] Red Blood Cell 3.72(L) 4.58 - 5.54 x10(6)/[facility] Hemoglobin 12.0(L) 13.7 - 16.5 g/dL [facility] Hematocrit 36.4(L) 40.5 - 48.5 % [facility] Mean Cell Volume 97.8(H) 82.9 - 93.1 fL [facility] Mean Cell Hemoglobin 32.3(H) 27.5 - 32.1 pg [facility] Mean Cell Hemoglobin Concentration 33.0 32.0 - 35.7 g/dL [facility] Platelet 149 145 - 357 x10(3)/[facility] RDW Standard Deviation 48.7(H) 36.0 - 45.0 [facility] RDW coefficient of variation 13.5 11.4 - 13.8 % [facility] Mean Platelet Volume 10.6 7.6 - 12.9 [facility] NRBC% auto 0.0 % [facility] NRBC Absolute 0.000 0.000 - 0.000 x10(3)/ L [facility] Blood 05/17/2022 3:33 AM EDT 05/17/2022 3:53 AM EDT Narrative Resulting Agency Comment Spec In Lab Edward Rodríguez MD HEMATOLOGY ORDER NICK Performing Organization Address City/[facility]/ZIP Co de Phone Number [facility] [place] [address] * (ABNORMAL) Urinalysis Microscopic Exam (05/16/2022 11:15 PM EDT) RBC, Urine 8(H) 0 - 3 /HPF [facility] WBC, Urine 2 0 - 3 /HPF [facility] Clean Catch Urine 05/16/2022 11:15 PM EDT 05/16/2022 11:30 PM EDT Narrative Resulting Agency Comment Spec In Lab Barbie Patiño MD URINE ORDERABLES Performing Organization Address [facility] Co de Phone Number [facility] [address] * (ABNORMAL) Urinalysis with reflex Culture (05/16/2022 11:15 PM EDT) Glucose, Urine Dipstick Negative Negative mg/dL [facility] Protein, Urine Dipstick Negative Negative mg/dL [facility] Bilirubin, Urine Dipstick Negative Negative mg/dL [facility] Comment: Clinical correlation required for positive Urine Bilirubin results as false positive may occur with some drugs and drug related products. If a false positive is suspected a serum total bilirubin should be considered if clinically indicated. Urobilinogen, Urine Dipstick Normal Normal mg/dL [facility] pH, Urn (dipstick) 6.0 5.0 - 8.0 [facility] Blood, Urine Dipstick Small(A) Negative mg/dL [facility] Ketone, Urine Dipstick Trace(A) Negative mg/dL [facility] Nitrite, Urine Dipstick Negative Negative [facility] Leukocytes, Urine Dipstick Negative Negative [facility] Appearance, Urine Dipstick Clear Clear [facility] Specific Anderson Urine Automated 1.021 1.005 - 1.030 [facility] Color, Urine Dipstick Yellow Yellow [facility] Reflex to Culture No [facility] Clean Catch Urine 05/16/2022 11:15 PM EDT 05/16/2022 11:30 PM EDT Narrative Resulting Agency Comment Spec In Lab Fito Summers MD URINE ORDERABLES Performing Organization Address [facility]/ZIP Co de Phone Number [facility] [place] [address] * Heparin (unfractionated) Level (05/16/2022 10:59 PM EDT) UF Heparin 0.65 IU/mL [facility] Comment: Specimen drawn more than [...] cardiac surgery): 0.1 ? 0.3 IU/mL Blood 05/16/2022 10:5 9 PM EDT 05/16/2022 11:28 PM EDT Narrative Resulting Agency Comment Spec In Lab Fito Summers MD HEMATOLOGY ORDERABLE S Performing Organization Address City/[facility]/ZIP Co de Phone Number [facility] [address] * XR Chest One View (05/16/2022 9:14 PM EDT) Anatomical Region Laterality Modality Chest N/A Digital Radiogra phy Impressions 05/16/2022 9:27 PM EDT Pulmonary vascular [...] first. ? Electronically signed by: Tiffanie George MD, [facility] ([phone]), at 05/16/2022 9:27 PM Narrative 05/16/2022 9:27 PM EDT EXAMINATION: XR CHEST ONE VIEW CLINICAL HISTORY: febrile and tachy TECHNIQUE: 1 view of the chest COMPARISON: May 15, 2022 FINDINGS: Progression of groundglass opacities at the lower lobes. Progression of diffuse bronchovascular haziness and pulmonary vascular redistribution. No radiographic evident pleural effusion. No pneumothorax. Cardiomegaly. No displaced rib fracture. Procedure Note Tiffanie George MD - 05/16/2022 EXAMINATION: XR CHEST ONE VIEW CLINICAL HISTORY: febrile and tachy TECHNIQUE: 1 view of the chest COMPARISON: May 15, 2022 FINDINGS: Progression of groundglass opacities at the lower lobes. Progression ofdiffuse bronchovascular haziness and pulmonary vascular redistribution. Noradiographic evident pleural effusion. No pneumothorax. Cardiomegaly. No displacedrib fracture. IMPRESSION Pulmonary vascular congestion versus atypical interstitial infection orviral pneumonia. Thank you for letting us participate in the care of this patient. If youare a health care provider and have any questions regarding this report,please contact the number below. For patients who have questions please contactthe health animal caregiver that requested your imaging first. Fito Summers MD IMG DX ORDERABLES * EKG 12 Lead (05/16/2022 8:57 PM EDT) Ventricular rate 117 BPM MUSE SYSTEM QRS Duration 112 ms MUSE SYSTEM Q-T Interval 346 ms MUSE SYSTEM QTC Calculated (Bezet) 482 ms MUSE SYSTEM Calculated R Jbphh -48 degrees MUSE SYSTEM Calculated T Jbphh 111 degrees MUSE SYSTEM INTERPRETATION Atrial fibrillation with rapid ventricular response Left anterior fascicular block Minimal voltage criteria for LVH, may be normal variant ( Winfield product ) Nonspecific ST and T wave abnormality Abnormal ECG When compared with ECG of 28-JUN-2011 14:59, Atrial fibrillation has replaced Sinus rhythm Vent. rate has increased BY ??47 BPM Confirmed by MD Shad, Abundio ([id number]) on 05/17/2022 10:54:28 AM MUSE SYSTEM 05/16/2022 8:57 PM EDT 05/17/2022 10:54 AM EDT Fito Summers MD ECG ORDERABLES MUSE SYSTEM * Heparin (unfractionated) Level (05/16/2022 4:34 PM EDT) UF Heparin 0.53 IU/mL [facility] Comment: Heparin (anti-Xa) levels should [...] cardiac surgery): 0.1 ? 0.3 IU/mL Blood 05/16/2022 4:34 PM EDT 05/16/2022 4:44 PM EDT Narrative Resulting Agency Comment Spec In Lab Fito Summers MD HEMATOLOGY ORDERABLE S [facility] [address] [place] [address] * ECHO COMPLETE W CONTRAST (05/16/2022 12:49 PM EDT) EF 28 HEARTLAB SYSTEM Anatomical Region Laterality Modality Cardiac Other 05/16/2022 11:2 2 AM EDT Narrative 05/16/2022 1:54 PM EDT [facility] ?[address] ? [place] [address] ?Voice: ?Fax: ? Echocardiogram Report Name: KOKO BAH Laurie ?Study Date: 05/16/2022 11:22 AM ? [facility] : 1940 ? Height: 67.5 in ? Account: [id number] Age: 81 yrs ? Weight: 176 lb Gender: Male ?BSA: 1.9 m2 Ordering Physician: FITO SUMMERS Referring Physician: MAIK FLORIAN Performed By: Jolene Bernard RDCS Exam Location: [facility]. Interpretation Summary Left ventricle is [...] and LV systolic dysfunction are new. Procedure Complete-[id number]. Image enhancement Optison was used for both Doppler and ventricular definition. Suboptimal quality. The rhythm is atrial fibrillation. Left Ventricle Left ventricle is mildly dilated. Mildly increased thickness of the basal septum with no obstruction to LV outflow. Left ventricular systolic function is severely reduced. The left ventricular ejection fraction is 28% by Gaxiola's biplane. There are segmental wall motion abnormalities. Right Ventricle The right ventricle is of normal size. Right ventricular systolic function is mildly decreased. Left Atrium The left atrium is moderately dilated. Right Atrium The right atrium is mildly dilated. Aortic Valve The aortic valve is tricuspid. The aortic valve is moderately thickened. The aortic valve is moderately calcified. The aortic leaflet excursion is moderately reduced. There is moderate aortic stenosis. The peak instantaneous gradient across the aortic valve is 18 mmHg. The mean gradient across the aortic valve is 13 mmHg. JUVENAL 1.2 cm2. There is no aortic regurgitation. Mitral Valve Mild thickening of the mitral leaflets. The estimated mean gradient across the mitral valve is 4 mmHg. Heart rate: 88 beats per minute. There is mild mitral regurgitation. S/P MV repair for prolapse. Tricuspid Valve The tricuspid valve is structurally normal. There is mild tricuspid regurgitation. Pulmonic Valve The pulmonic valve appears to be structurally and functionally normal. Great Arteries The aortic root at the level of the sinuses of Valsalva is mildly dilated. The ascending aorta is mildly dilated. No abnormalities of the pulmonary artery are identified. Venous Inferior vena cava is dilated. Inferior vena cava collapse greater than 50% with respiration. Hemodynamics The peak right ventricular systolic pressure is 31 mmHg. The estimated right atrial pressure is 8mmHg. Unable to assess diastolic function. Ejection Fraction ?2D Measurements ? Volumes EF(MOD-bp): 27.7 % ?IVSd: 1.3 cm ? LAV(MOD- bp) Indexed: ?LVIDd: 5.7 cm ?LVIDs: 4.6 cm ?48.6 ml/m2 ?LVPWd: 0.97 cm ? RA A4Cs_phl: 19.6 cm2 ?LV mass(C)d: 269.4 grams ? EDV (MOD-bp) Index: 62.6 ? ESV (MOD-bp) Index: 45.3 ?LV mass(C)dI: 139.5 grams/m2 ?? SV(LVOT): 50.4 ml ?Ao root diam: 3.9 cm ?Ao root diam index: 2.0 ?SI(LVOT): 26.1 ml/m2 ?asc Aorta Diam: 3.8 cm ?LVOT diam: 2.2 cm ?TAPSE_phl: 1.4 cm Doppler TR max agueda: 240.5 [...] diffuse Procedure Note Gladys Jaime MD - 05/16/2022 [facility] [address] [place] [address] Voice: Fax: Echocardiogram Report Name: KOKO BAH Study Date: 1:22 AM Patient Location: [id number] : 1940 Height: 67.5 in Account: [id number] Age: 81 yrs Weight: 176 lb Gender: Male BSA: 1.9 m2 Ordering Physician: FITO SUMMERS Referring Physician: MAIK FLORIAN Performed By: Jolene Bernard LOLLY Exam Location: [facility]. Interpretation Summary Left ventricle is mildly dilated. Left ventricular systolic function isseverely reduced. The left ventricular ejection fraction is 28% by Gaxiola'sbiplane. Right ventricular systolic function is mildly decreased. There is moderate aortic stenosis. The mean gradient across the aorticvalve is 13 mmHg. JUVENAL 1.2 cm2 S/P MV repair for prolapse. There is mild mitral regurgitation. Compared with the prior TTE of 09/03/2012, moderate and LV systolicdysfunction are new. Procedure Complete-[id number]. Image enhancement Optison was used for both Doppler and ventricular definition. Suboptimal quality. The rhythm is atrialfibrillation. Left Ventricle Left ventricle is mildly dilated. Mildly increased thickness of the basalseptum with no obstruction to LV outflow. Left ventricular systolic function isseverely reduced. The left ventricular ejection fraction is 28% by Gaxiola'sbiplane. There are segmental wall motion abnormalities. Right Ventricle The right ventricle is of normal size. Right ventricular systolic functionis mildly decreased. Left Atrium The left atrium is moderately dilated. Right Atrium The right atrium is mildly dilated. Aortic Valve The aortic valve is tricuspid. The aortic valve is moderately thickened.The aortic valve is moderately calcified. The aortic leaflet excursion ismoderately reduced. There is moderate aortic stenosis. The peak instantaneousgradient across the aortic valve is 18 mmHg. The mean gradient across the aortic valve is13 mmHg. JUVENAL 1.2 cm2. There is no aortic regurgitation. Mitral Valve Mild thickening of the mitral leaflets. The estimated mean gradient acrossthe mitral valve is 4 mmHg. Heart rate: 88 beats per minute. There is mildmitral regurgitation. S/P MV repair for prolapse. Tricuspid Valve The tricuspid valve is structurally normal. There is mild tricuspidregurgitation. Pulmonic Valve The pulmonic valve appears to be structurally and functionally normal. Great Arteries The aortic root at the level of the sinuses of Valsalva is mildly dilated.The ascending aorta is mildly dilated. No abnormalities of the pulmonaryartery are identified. Venous Inferior vena cava is dilated. Inferior vena cava collapse greater than50% with respiration. Hemodynamics The peak right ventricular systolic pressure is 31 mmHg. The estimatedright atrial pressure is 8mmHg. Unable to assess diastolic function. Ejection Fraction 2D Measurements Volumes EF(MOD-bp): 27.7 % IVSd: 1.3 cm LAV(MOD-bp)Indexed: LVIDd: 5.7 cm LVIDs: 4.6 cm 48.6 ml/m2 LVPWd: 0.97 cm RA A4Cs_phl: 19.6cm2 LV mass(C)d: 269.4 grams EDV (MOD-bp)Index: 62.6 ESV (MOD-bp)Index: 45.3 LV mass(C)dI: 139.5 grams/m2 SV(LVOT): 50.4ml Ao root diam: 3.9 cm Ao root diam index: 2.0 SI(LVOT): 26.1ml/m2 asc Aorta Diam: 3.8 cm LVOT diam: 2.2 cm TAPSE_phl: 1.4 cm Doppler TR max agueda: 240.5 cm/sec RVSP(TR): 31.2 mmHg Ao V2 VTI: 43.4 cm Ao valve max: 18.1 mmHg Ao valve mean: 12.8 mmHg JUVENAL(I,D): 1.2 cm2 Dimensionless index Aov: 0.31 JUVENAL Planimetery: 1.3 cm2 MV mean P.8 mmHg I WMSI = 2.25 % Normal = 0 SegmentsSize X - Cannot 1 - Normal 2 - 3 - Akinetic 4 - 1-2small Interpret Hypokinetic Dyskinetic 3-5moderate 5 - 6-14large Aneurysmal 15-16diffuse Fito Summers MD ECHO ORDERABLES * (ABNORMAL) Differential, Automated (05/16/2022 3:01 AM EDT) Neutrophil % 78.8 % [facility] Neutrophil Absolute 9.11(H) 1.70 - 6.10 x10(3)/mc L [facility] Lymph % 9.4 % [facility] Lymphocytes Abs 1.1 0.9 - 3.2 x10(3)/mc L [facility] Monocyte % 10.9 % [facility] Monocyte Abs 1.3(H) 0.3 - 0.9 x10(3)/[facility] Eos % 0.0 % [facility] Eosinophils Abs 0.0 0.0 - 0.4 x10(3)/[facility] Basophil % 0.3 % [facility] Baso Absolute 0.0 0.0 - 0.1 x10(3)/[facility] Immature Gran % 0.60 % [facility] Comment: Immature granulocytes(IG's)percentage and absolute count will include metamyelocytes, myelocytes, and promyelocytes. Blood smears from CBCs yielding IG's will be scanned manually for concordance. If this scan disagrees with the automated IG or if promyelocytes are noted, a manual differential will be performed. Immature Gran Absolute 0.07(H) 0.00 - 0.04 x10(3)/[facility] Blood 05/16/2022 3:01 AM EDT 05/16/2022 3:36 AM EDT Narrative Resulting Agency Comment Spec In Lab Erin Garza MD HEMATOLOGY ORDERABLE S [facility] [address] * (ABNORMAL) Hemogram (05/16/2022 3:01 AM EDT) White Blood Cell 11.6(H) 4.0 - 9.5 x10(3)/[facility] Red Blood Cell 3.62(L) 4.58 - 5.54 x10(6)/[facility] Hemoglobin 12.0(L) 13.7 - 16.5 g/dL [facility] Hematocrit 35.3(L) 40.5 - 48.5 % [facility] Mean Cell Volume 97.5(H) 82.9 - 93.1 fL [facility] Mean Cell Hemoglobin 33.1(H) 27.5 - 32.1 pg [facility] Mean Cell Hemoglobin Concentration 34.0 32.0 - 35.7 g/dL [facility] Platelet 151 145 - 357 x10(3)/mc L [facility] RDW Standard Deviation 47.6(H) 36.0 - 45.0 [facility] RDW coefficient of variation 13.3 11.4 - 13.8 % [facility] Mean Platelet Volume 10.5 7.6 - 12.9 [facility] NRBC% auto 0.0 % [facility] NRBC Absolute 0.000 0.000 - 0.000 x10(3)/mc L [facility] Blood 05/16/2022 3:01 AM EDT 05/16/2022 3:36 AM EDT Narrative Resulting Agency Comment Spec In Lab Erin Garza MD HEMATOLOGY ORDERABLE S [facility] [address] * Phosphorus (05/16/2022 3:01 AM EDT) Phosphorus 3.7 2.5 - 4.5 mg/dL [facility] Blood 05/16/2022 3:01 AM EDT 05/16/2022 3:36 AM EDT Narrative Resulting Agency Comment Spec In Lab Fito Summers MD CHEMISTRY ORDERABLES [facility] [place] [address] * Magnesium (05/16/2022 3:01 AM EDT) Magnesium 0.77 0.69 - 1.07 mmol/L [facility] Blood 05/16/2022 3:01 AM EDT 05/16/2022 3:36 AM EDT Narrative Resulting Agency Comment Spec In Lab Fito Summers MD CHEMISTRY ORDERABLES [facility] [place] [address] * (ABNORMAL) Basic Metabolic Panel (non-fasting) (05/16/2022 3:01 AM EDT) Glucose 222(H) 65 - 199 mg/dL [facility] Comment:Diabetes: >=200 mg/d L plus symptoms Blood Urea Nitrogen 12 10 - 20 mg/dL [facility] Creatinine 0.66(L) 0.80 - 1.50 mg/dL [facility] [...] questions. Chloride 108(H) 98 - 107 mmol/L [facility] Carbon Dioxide 22 22 - 31 mmol/L [facility] Anion Gap 8 5 - 15 mmol/L [facility] Calcium 8.2(L) 8.5 - 10.5 mg/dL [facility] Est Glomerular Filtration Rate 95 >=60 mL/min/1. 73 m?? [facility] Comment: This [...] and symptoms in addition to eGFR. Blood 05/16/2022 3:01 AM EDT 05/16/2022 3:36 AM EDT Narrative Resulting Agency Comment Spec In Lab Fito Summers MD CHEMISTRY ORDERABLES [facility] [address] * (ABNORMAL) BLOOD GAS 2 ARTERIAL (05/15/2022 3:33 PM EDT) pH, Arterial 7.33(L) 7.35 - 7.45 [facility] PCO2, Arterial 41 35 - 45 mmHg [facility] PO2, Arterial 131(H) 85 - 104 mmHg [facility] Bicarbonate, Arterial 21.1 20.0 - 26.0 mmol/L [facility] Base Excess, Arterial -4.8(L) -3.0 - 3.0 mmol/L [facility] Hgb Blood Gas 13.4(L) 13.7 - 16.5 g/dL [facility] Oxyhemoglobin, Arterial 96.9 94.0 - 97.0 % [facility] Carboxyhemoglob in, Arterial 1.4 % [facility] Comment: Nonsmokers: 0.5-1.5% COHB Smokers: Variable, but usually less than 10% Toxic: 20-30% COHB Lethal: Greater than 60% COHB Methemoglobin, Arterial 0.3 <=1.5 % [facility] Na Whole Blood 139 135 [...] falsely low ionized calcium. CL Whole Blood 113(H) 98 - 107 mmol/L [facility] Gluc Whole Bld 136 65 - 199 mg/dL [facility] Comment:Diabetes: >=200 mg/d L plus symptoms. Lactate WB 2.0 0.5 - 2.2 mmol/L [facility] Blood 05/15/2022 3:33 PM EDT 05/15/2022 3:[address] Jamel Torre MD POINT OF CARE TEST O RDERABLES [facility] [place] [address] * (ABNORMAL) BLOOD GAS 2 ARTERIAL (05/15/2022 2:06 PM EDT) pH, Arterial 7.39 7.35 - 7.45 [facility] PCO2, Arterial 35 35 - 45 mmHg [facility] PO2, Arterial 135(H) 85 - 104 mmHg [facility] Bicarbonate, Arterial 20.8 20.0 - 26.0 mmol/L [facility] Base Excess, Arterial -4.2(L) -3.0 - 3.0 mmol/L [facility] Hgb Blood Gas 14.5 13.7 - 16.5 g/dL [facility] Oxyhemoglobin, Arterial 97.2(H) 94.0 - 97.0 % [facility] Carboxyhemoglob in, Arterial 1.2 % [facility] Comment: Nonsmokers: 0.5-1.5% COHB Smokers: Variable, but usually less than 10% Toxic: 20-30% COHB Lethal: Greater than 60% COHB Methemoglobin, Arterial 0.3 <=1.5 % [facility] Na Whole Blood 140 135 - 145 mmol/L [facility] K Whole Blood 3.8 3.5 - 5.0 mmol/L [facility] Comment: Please note: Patients with WBC >100,000 may have falsely elevated Potassium levels. Contact the Clinical Chemistry Laboratory if there are any questions. ICa Whole Blood 1.12(L) 1.15 - 1.33 mmol/L [facility] Comment: Note: ??Total bilirubin higher than 20 mg/dL may lead to falsely low ionized calcium. CL Whole Blood 109(H) 98 - 107 mmol/L [facility] Gluc Whole Bld 152 65 - 199 mg/dL [facility] Comment:Diabetes: >=200 mg/d L plus symptoms. Lactate WB 1.5 0.5 - 2.2 mmol/L [facility] Blood 05/15/2022 2:06 PM EDT 05/15/2022 2:[address] Jamel Torre MD POINT OF CARE TEST O RDERABLES Performing Organization Address [facility]/ZIP Co de Phone Number [facility] [place] [address] * (ABNORMAL) Prothrombin Time (05/15/2022 12:30 PM EDT) Prothrombin Time 12.9(H) 9.4 - 12.5 sec [facility] International Normalization Ratio 1.1 [facility] Comment: An [...] be appropriate depending on clinical circumstances. Blood 05/15/2022 12:3 0 PM EDT 05/15/2022 1:00 PM EDT Narrative Resulting Agency Comment Spec In Lab Jhonny Morales DO HEMATOLOGY ORDERABLE S Performing Organization Address [facility]/ZIP Co de Phone Number [facility] [place] [address] * (ABNORMAL) APTT (05/15/2022 12:30 PM EDT) Pathologist [facility] Partial Thromboplastin Time 76(H) 25 - 37 sec [facility] Comment: The PTT is NOT appropriate for heparin monitoring. Use the Anti-Xa level for heparin monitoring (HEP UFH) or LMWH monitoring (HEP LMW). A PTT less than 37 seconds generally indicates adequate hemostasis. Blood 05/15/2022 12:3 0 PM EDT 05/15/2022 1:00 PM EDT Narrative Resulting Agency Comment Spec In Lab Jhonny Morales DO HEMATOLOGY ORDERABLE S Performing Organization Address City/[facility]/ZIP Co de Phone Number [facility] [place] [address] * Gold Tube HOLD (05/15/2022 12:20 PM EDT) [facility] Gold Hold Sample in lab. [facility] Blood No Charge / Unknown 05/15/2022 12:20 PM EDT 05/15/2022 12:20 PM EDT Lc TRIPP CHEMISTRY ORDERABLES Performing Organization Address City/[facility]/ZIP Co de Phone Number [facility] [place] [address] * Type and Screen Validity (05/15/2022 12:00 PM EDT) [facility] T&S only valid at [facility] Comment:This Type and Screen result is only valid at the [facility] Blood 05/15/2022 12:0 0 PM EDT 05/15/2022 12:17 PM EDT Narrative Resulting Agency Comment Spec In Lab Lc TRIPP BLOOD BANK LAB ORDER NICK Performing Organization Address City/[facility]/ZIP Co de Phone Number [facility] [place] [address] * ABORH Recheck Status (05/15/2022 12:00 PM EDT) ABORH Recheck Order Order Placed [facility] ABORH Type Recheck Complete [facility] Blood 05/15/2022 12:0 0 PM EDT 05/15/2022 12:17 PM EDT Narrative Resulting Agency Comment Spec In Lab Lc TRIPP BLOOD BANK LAB ORDER NICK [facility] [place] [address] * CK (05/15/2022 12:00 PM EDT) Pathologist [facility] Creatine Kinase 87 0 - 200 unit/L [facility] Blood Venous Draw / Unknown 05/15/2022 12:00 PM EDT 05/15/2022 12:19 PM EDT Narrative Resulting Agency Comment Spec In Lab Fito Summers MD CHEMISTRY ORDERABLES Performing Organization Address City/[facility]/ZIP Co de Phone Number [facility] [address] * Antibody screen (05/15/2022 12:00 PM EDT) Ab Screen Interp Negative [facility] Expires at [id number] on: 05/18/2022 [facility] Blood 05/15/2022 12:0 0 PM EDT 05/15/2022 12:17 PM EDT Narrative Resulting Agency Comment Spec In Lab Lc TRIPP BLOOD BANK LAB ORDER NICK Performing Organization Address City/[facility]/ZIP Co de Phone Number [facility] [address] * ABO/Rh Typing (05/15/2022 12:00 PM EDT) ABORH Type O Pos [facility] Blood 05/15/2022 12:0 0 PM EDT 05/15/2022 12:17 PM EDT Narrative Resulting Agency Comment Spec In Lab Lc TRIPP BLOOD BANK LAB ORDER NICK Performing Organization Address [facility]/ZIP Co de Phone Number [facility] [address] * (ABNORMAL) Differential, Automated (05/15/2022 12:00 PM EDT) Neutrophil % 79.4 % [facility] Neutrophil Absolute 7.49(H) 1.70 - 6.10 x10(3)/ L [facility] Lymph % 11.3 % [facility] Lymphocytes Abs 1.1 0.9 - 3.2 x10(3)/ L [facility] Monocyte % 7.8 % [facility] Monocyte Abs 0.7 0.3 - 0.9 x10(3)/[facility] Eos % 0.6 % [facility] Eosinophils Abs 0.1 0.0 - 0.4 x10(3)/[facility] Basophil % 0.6 % [facility] Baso Absolute 0.1 0.0 - 0.1 x10(3)/ L [facility] Immature Gran % 0.30 % [facility] Comment: Immature granulocytes(IG's)percentage and absolute count will include metamyelocytes, myelocytes, and promyelocytes. Blood smears from CBCs yielding IG's will be scanned manually for concordance. If this scan disagrees with the automated IG or if promyelocytes are noted, a manual differential will be performed. Immature Gran Absolute 0.03 0.00 - 0.04 x10(3)/ L [facility] Blood 05/15/2022 12:0 0 PM EDT 05/15/2022 12:19 PM EDT Narrative Resulting Agency Comment Spec In Lab Lc TRIPP HEMATOLOGY ORDERABLE S Performing Organization Address City/[facility]/ZIP Co de Phone Number [facility] [address] * (ABNORMAL) Hemogram (05/15/2022 12:00 PM EDT) [facility] White Blood Cell 9.4 4.0 - 9.5 x10(3)/mc L [facility] Red Blood Cell 4.48(L) 4.58 - 5.54 x10(6)/mc L [facility] Hemoglobin 14.5 13.7 - 16.5 g/dL [facility] Hematocrit 42.4 40.5 - 48.5 % [facility] Mean Cell Volume 94.6(H) 82.9 - 93.1 fL [facility] Mean Cell Hemoglobin 32.4(H) 27.5 - 32.1 pg [facility] Mean Cell Hemoglobin Concentration 34.2 32.0 - 35.7 g/dL [facility] Platelet 209 145 - 357 x10(3)/mc L [facility] RDW Standard Deviation 45.9(H) 36.0 - 45.0 fL [facility] RDW coefficient of variation 13.1 11.4 - 13.8 % [facility] Mean Platelet Volume 10.5 7.6 - 12.9 fL [facility] NRBC% auto 0.0 % [facility] NRBC Absolute 0.000 0.000 - 0.000 x10(3)/mc L [facility] Blood 05/15/2022 12:0 0 PM EDT 05/15/2022 12:19 PM EDT Narrative Resulting Agency Comment Spec In Lab Lc TRIPP HEMATOLOGY ORDERABLE S [facility] [place] [address] * (ABNORMAL) Basic Metabolic Panel (non-fasting) (05/15/2022 12:00 PM EDT) Glucose 203(H) 65 - 199 mg/dL [facility] Comment:Diabetes: >=200 mg/d L plus symptoms Blood Urea Nitrogen 16 10 - 20 mg/dL [facility] [...] questions. Chloride 107 98 - 107 mmol/L [facility] Carbon Dioxide 23 22 - 31 mmol/L [facility] Anion Gap 11 5 - 15 mmol/L [facility] Calcium 8.5 8.5 - 10.5 mg/dL [facility] Est Glomerular Filtration Rate 89 >=60 mL/min/1. 73 m?? [facility] Comment: This [...] and symptoms in addition to eGFR. Blood 05/15/2022 12:0 0 PM EDT 05/15/2022 12:19 PM EDT Narrative Resulting Agency Comment Spec In Lab Jhonny Morales DO CHEMISTRY ORDERABLES [facility] [place] [address] documented in this encounter Visit Diagnoses Diagnosis Atrial fibrillation, unspecified type Non-ST elevation myocardial infarction (NSTEMI) Acute myocardial infarction, subendocardial infarction, episode of care unspecified Limb ischemia Unspecified circulatory system disorder HFrEF (heart failure with reduced ejection fraction) Paroxysmal atrial fibrillation Atrial fibrillation Limb ischemia Unspecified circulatory system disorder Paroxysmal atrial fibrillation Atrial fibrillation documented in this encounter Admitting Diagnoses Diagnosis Limb ischemia Unspecified circulatory system disorder documented in this encounter Administered Medications Inactive Administered Medications - up to 3 most recent administrations Medication Order MAR Action Action Date Dose Rate Site acetaminophen (Tylenol) tablet 650 mg 650 mg, Oral, EVERY 6 HOURS PRN, Starting on Fri05/16/22 at 1606, Until Fri05/21/22 at 1743, Pain, Maximum dose of acetaminophen is 4000 mg from all sources in 24 hours. When ordered for pain, acetaminophen should be given even when other ordered pain medications are indicated. , Routine Given 05/18/2022 9:01 AM EDT 650 mg Given 05/17/2022 8:37 AM EDT 650 mg Given 05/16/2022 8:10 PM EDT 650 mg alum-mag hydroxide-simeth (Maalox) (40 mg-40 mg-4 mg/mL) oral liquid 10 mL 10 mL, Oral, 3 TIMES DAILY PRN, Starting on Fri05/20/22 at 1850, Until Fri05/21/22 at 1743, Heartburn, Routine Given 05/20/2022 7:04 PM EDT 10 mLs aspirin EC tablet 81 mg 81 mg, Oral, DAILY, First dose on Fri05/21/22 at 0900, Until Discontinued, Recovery (Recovery-Hospital Unit), Routine Given 05/21/2022 8:16 AM EDT 8 1 mg bisacodyL (Dulcolax) suppository 10 mg 10 mg, Rectal, DAILY PRN, Starting on Fri05/16/22 at 1604, Until Fri05/21/22 at 1743, Constipation, Routine clopidogreL (Plavix) tablet 75 mg 75 mg, Oral, DAILY, First dose on Fri05/21/22 at 0900, Until Discontinued, Recovery (Recovery-Hospital Unit), Routine Given 05/21/2022 8:16 AM EDT 7 5 mg folic acid (Folvite) tablet 1,000 mcg 1,000 mcg, Oral, DAILY, First dose on Fri05/16/22 at 0900, Until Discontinued, Routine Given 05/21/2022 8:15 AM EDT 1,000 mcg Given 05/20/2022 8:52 AM EDT 1,000 mcg Given 05/19/2022 8:38 AM EDT 1,000 mcg furosemide (Lasix) (10 mg/mL) injection 20 mg 20 mg, Intravenous, ONCE, 1 dose, On Brandi 05/16/22 at 2330 Given 05/16/2022 11:56 PM EDT 20 mg furosemide (Lasix) (10 mg/mL) injection 20 mg 20 mg, Intravenous, ONCE, 1 dose, On 05/18/22 at 1845 Given 05/18/2022 8:45 PM EDT 20 mg heparin (porcine) 50 units/mL in sodium chloride 0.45% 500 mL infusion 500 Units/hr (10 mL/hr), Intravenous, CONTINUOUS, Starting on Fri05/15/22 at 2345, Until Brandi 05/16/22 at 0759, Routine New Bag 05/16/2022 12:02 AM EDT 500 Units/hr 10 mL/hr heparin (porcine) 50 units/mL in sodium chloride [...] Level - Per Protocol, Routine Rate/Dose Verify 05/21/2022 1:01 PM EDT 1,200 Units/hr 24 mL/hr Restarted 05/21/2022 2:19 AM EDT 1,200 Units/hr 24 mL/hr New Bag 05/20/2022 4:00 PM EDT 1,200 Units/hr 24 mL/hr HYDROmorphone (Dilaudid) (2 mg/mL) multi-dose injection solution 0.2 mg 0.2 mg, Intravenous, EVERY 10 MIN PRN, Starting on Fri05/15/22 at 165, Until Fri05/15/22 at 2024, Pain, For Mild to Moderate Pain (1-5 out of 10), Hold for respiratory rate less than 10 per minute. Maximum dose 3 mg over one hour including administrations in the OR. If multiple pain medications are ordered, start with HYDROmorphone or morphine and use fentaNYL for breakthrough pain, PACU Recovery, Routine Given 05/15/2022 6:18 PM EDT 0.2 mg HYDROmorphone (Dilaudid) (2 mg/mL) multi-dose injection solution 0.4 mg 0.4 mg, Intravenous, EVERY 10 MIN PRN, Starting on Fri05/15/22 at 165, Until Fri05/15/22 at 2024, Pain, For Moderate to Severe Pain (6-10 out of 10), Hold for respiratory rate less than 10 per minute. Maximum dose 3 mg over one hour including administrations in the OR. If multiple pain medications are ordered, start with HYDROmorphone or morphine and use fentaNYL for breakthrough pain, PACU Recovery, Routine Given 05/15/2022 7:01 PM EDT 0.4 mg Given 05/15/2022 6:29 PM EDT 0.4 mg ipratropium-albuteroL (Duoneb) 0.5 mg-3 mg(2.5 mg base)/3 mL nebulizer solution 3 mL 3 mL, Nebulization, 4 TIMES DAILY PRN, Starting on Fri05/15/22 at 1717, Until Fri05/21/22 at 1743, Wheezing, Routine Given 05/15/2022 5:19 PM EDT 3 mLs lactated ringers infusion 100 mL/hr, Intravenous, CONTINUOUS, Starting on Fri05/15/22 at 1815, Until Brandi 05/16/22 at 0014, Recovery (Recovery-Hospital Unit) New Bag 05/15/2022 6:22 PM EDT 100 mL/hr 100 mL /hr lidocaine (Xylocaine) 1% (10 mg/mL) injection 250 mg 250 mg (25 mL), Subcutaneous, ONCE, 1 dose, On Fri05/17/22 at 0930, For physician administration for bedside procedure, Routine Given 05/17/2022 9:30 AM EDT 250 mg magnesium sulfate 2 g in sterile water 50 mL infusion 2 g, Intravenous, ONCE, 1 dose, On Fri05/17/22 at 1145, Administer over 120 Minutes New Bag 05/17/2022 11:31 AM EDT 2 g 25 mL/hr metoprolol (LOPRESSOR) injection 5 mg 5 mg, Intravenous, EVERY 5 MIN PRN, 3 doses, Starting on Brandi 05/16/22 at 2125, Until 05/18/22 at 2248, Elevated Heart Rate, up to 3 doses for HR >110 Given 05/18/2022 10:48 PM EDT 5 mg Given 05/18/2022 12:59 AM EDT 5 mg Given 05/16/2022 9:58 PM EDT 5 mg metoprolol (LOPRESSOR) injection 5 mg 5 mg, Intravenous, EVERY 5 MIN PRN, Starting on Fri05/19/22 at 0506, Until Fri05/21/22 at 1743, Elevated Heart Rate, up to 3 doses for HR >110 Given 05/19/2022 6:05 AM EDT 5 mg metoprolol tartrate (Lopressor) tablet 12.5 mg 12.5 mg, Oral, EVERY 12 HOURS SCHEDULED (2 times per day), First dose on 05/18/22 at 2100, Until Discontinued, Routine Given 05/21/2022 8:17 AM EDT 12.5 mg Given 05/20/2022 8:05 PM EDT 12.5 mg Given 05/20/2022 8:53 AM EDT 12.5 mg metoprolol tartrate (Lopressor) tablet 12.5 mg 12.5 mg, Oral, EVERY 6 HOURS SCHEDULED, First dose (after last modification) on Fri05/21/22 at 1200, Until Discontinued, Routine Given 05/21/2022 11:36 AM EDT 12.5 mg multivitamin with minerals (Thera M) tablet 1 tablet 1 tablet, Oral, DAILY, First dose on Brandi 05/16/22 at 0900, Until Discontinued, Routine Given 05/21/2022 8:16 AM EDT 1 tablet Given 05/20/2022 8:52 AM EDT 1 tablet Given 05/19/2022 8:38 AM EDT 1 tablet ondansetron (pf) (Zofran) (2 mg/mL) injection 4 mg 4 mg, Intravenous, EVERY 8 HOURS PRN, Starting on Fri05/15/22 at 2147, Until Fri05/21/22 at 1743, Nausea, May repeat times one in 30 minutes if ineffective. If multiple antiemetics are ordered, use ondansetron first, Recovery (Recovery-Hospital Unit) ondansetron (Zofran) tablet [...] Oral, EVERY 4 HOURS PRN, Starting on Fri05/17/22 at 0655, Until Fri05/21/22 at 1743, Pain, severe pain (7-10), Initial dose 10mg. If pain control not adequate in 60 minutes, give additional 5mg, Routine oxyCODONE (Roxicodone) tablet 5-10 mg 5-10 mg, Oral, EVERY 4 HOURS PRN, Starting on Fri05/17/22 at 0655, Until Fri05/21/22 at 1743, Pain, moderate pain (4-6), Initial dose 5mg. If pain control not adequate in 60 minutes, give additional 5mg, Routine pantoprazole EC (Protonix) tablet 40 mg 40 mg, Oral, DAILY, First dose on Fri05/22/22 at 0900, Until Discontinued, DO NOT CRUSH OR OPEN perflutren protein-A microsphers (Optison) (0.22 mg/mL) injection 1.5 mL 1.5 mL, Intravenous, ONCE PRN, 1 dose, Starting on Brandi 05/16/22 at 1249, Until Brandi 05/16/22 at 1115, for enhancement of sub-optimal echo images, Echo Lab (Intra-Procedure), Routine Given 05/16/2022 11:15 AM EDT 1.5 mLs PHENobarbitaL (Luminal) (130 mg/mL) injection 122.2 mg 122.2 mg (rounded from 121.86 mg = 1.8 mg/kg/dose ? 67.7 kg [place] weight), Intravenous, at 11.3 mL/hr, Administer over 5 Minutes, EVERY 3 HOURS, 2 doses, First dose [...] Less than 90 mmHg., Routine Given 05/16/2022 6:28 AM EDT 122.2 mg 11. 3 mL/hr Given 05/16/2022 3:42 AM EDT 122.2 mg 11.3 mL/hr PHENobarbitaL (Luminal) (130 mg/mL) injection 162.5 mg 162.5 mg (rounded from 162.48 mg = 2.4 mg/kg/dose ? 67.7 kg [place] weight), Intravenous, at 15 mL/hr, Administer over 5 Minutes, ONCE, 1 dose, On Fri05/15/22 at 2345, Administer as slow IV Push at at rate no more than 50 mg/minute. Hold for RASS Less than -1: Not fully alert, but has sustained (more than 10 seconds) awakening, with eye contact, to voice. Hold for HR Less than 60 bpm. Hold for SBP Less than 90 mmHg., Routine Given 05/16/2022 12:00 AM EDT 162.5 mg 15 mL/hr PHENobarbitaL (Luminal) tablet 16.2 mg 16.2 mg (rounded from 16.248 mg = 0.24 mg/kg/dose ? 67.7 kg [place] weight), Oral, 2 TIMES DAILY, 2 doses, First dose on Fri05/17/22 at 0900, Last dose on Fri05/17/22 at 2100, Hold for RASS Less than -1: Not fully alert, but has sustained (more than 10 seconds) awakening, with eye contact, to voice. Hold for HR Less than 60 bpm. Hold for SBP Less than 90 mmHg., Routine Given 05/17/2022 9:30 PM EDT 16.2 mg Given 05/17/2022 8:37 AM EDT 16.2 mg PHENobarbitaL (Luminal) tablet 32.4 mg 32.4 mg (rounded from 32.496 mg = 0.48 mg/kg/dose ? 67.7 kg [place] weight), Oral, 2 TIMES DAILY, 2 doses, First dose on Brandi 05/16/22 at 0900, Last dose on Fri05/16/22 at 2100, Hold for RASS Less than -1: Not fully alert, but has sustained (more than 10 seconds) awakening, with eye contact, to voice. Hold for HR Less than 60 bpm. Hold for SBP Less than 90 mmHg., Routine Given 05/16/2022 8:10 PM EDT 32.4 mg Given 05/16/2022 9:09 AM EDT 32.4 mg PHENobarbitaL (Luminal) tablet 8.1 mg 8.1 mg (rounded from 8.124 mg = 0.12 mg/kg/dose ? 67.7 kg [place] weight), Oral, 2 TIMES DAILY, 2 doses, First dose on Fri05/18/22 at 0900, Last dose on Fri05/18/22 at 2100, Hold for RASS Less than -1: Not fully alert, but has sustained (more than 10 seconds) awakening, with eye contact, to voice. Hold for HR Less than 60 bpm. Hold for SBP Less than 90 mmHg., Routine Given 05/18/2022 8:46 PM EDT 8.1 mg Given 05/18/2022 9:00 AM EDT 8.1 mg polyethylene glycoL (Miralax) packet 17 g 17 g, Oral, 2 TIMES DAILY, First dose on Fri05/16/22 at 2100, Until Discontinued, Routine Given 05/21/2022 8:15 AM EDT 17 g Given 05/20/2022 9:32 PM EDT 17 g Given 05/19/2022 8:38 AM EDT 17 g potassium chloride 10 mEq in sterile water 100 mL infusion 10 mEq, Intravenous, ONCE, 1 dose, On Fri05/17/22 at 0845, Administer over 60 Minutes, Warning Vesicant/Irritant Medication New Bag 05/17/2022 9:28 AM EDT 10 mEq 100 mL/hr potassium chloride ER (K-Dur/Klor-Con) tablet 20 mEq 20 mEq, Oral, ONCE, 1 dose, On Fri05/17/22 at 1200, 20 mEq tablet may be dissolved in water for administration, Routine Given 05/17/2022 11:31 AM EDT 20 mEq rivaroxaban (Xarelto) tablet 20 mg 20 mg, Oral, DAILY, First dose on Fri05/21/22 at 1415, Until Discontinued, Take with food, Routine, Restricted anticoagulant, choose the most appropriate response: Continuation of ongoing therapy Given 05/21/2022 2:08 PM EDT 20 mg rosuvastatin (Crestor) tablet 40 mg 40 mg, Oral, EVERY EVENING, First dose on Fri05/16/22 at 0900, Until Discontinued, Routine Given 05/21/2022 8:16 AM EDT 40 mg Given 05/20/2022 8:53 AM EDT 40 mg Given 05/19/2022 8:38 AM EDT 40 mg sodium chloride 0.9 % (flush) (BD PosiFlush Normal Saline 0.9) flush 5 mL 5 mL, Intravenous, 2 TIMES DAILY, First dose on Fri05/15/22 at 2245, Until Discontinued, Recovery (Recovery-Hospital Unit), Routine Given 05/21/2022 8:19 AM EDT 5 mLs Given 05/19/2022 8:10 PM EDT 5 mLs Given 05/18/2022 8:46 PM EDT 5 mLs sodium chloride 0.9% infusion 150 mL/hr, Intravenous, CONTINUOUS, Starting on Fri05/20/22 at 1915, Until Fri05/20/22 at 2214, Recovery (Recovery-Hospital Unit) Continued Bag 05/20/2022 7:00 PM EDT 150 mL/hr 150 mL/hr tamsulosin (Flomax) capsule 0.4 mg 0.4 mg, Oral, DAILY, First dose on Fri05/16/22 at 0900, Until Discontinued, DO NOT CRUSH OR OPEN, Routine Given 05/21/2022 8:17 AM EDT 0.4 mg Given 05/20/2022 8:53 AM EDT 0.4 mg Given 05/19/2022 8:38 AM EDT 0.4 mg thiamine (Vitamin B1) tablet 100 mg 100 mg, Oral, DAILY, First dose on Fri05/16/22 at 0900, Until Discontinued, Routine Given 05/21/2022 8:16 AM EDT 100 mg Given 05/20/2022 8:53 AM EDT 100 mg Given 05/19/2022 8:38 AM EDT 100 mg valsartan (Diovan) tablet 40 mg 40 mg, Oral, 2 TIMES DAILY, First dose on Fri05/18/22 at 2100, Until Discontinued Given 05/21/2022 8:16 AM EDT 40 mg Given 05/20/2022 8:06 PM EDT 40 mg Given 05/20/2022 8:53 AM EDT 40 mg documented in this encounter Active and Recently Administered Medications Times are shown in EDT. Scheduled Medication Order 05/19/2022 05/20/2022 05/21/2022 aspirin EC tablet 81 mg 81 mg, Oral, DAILY, First dose on Fri05/21/22 at 0900, Until Discontinued, Recovery (Recovery-Hospital Unit), Routine 0816 (Given - Provider: Etta Don RN) clopidogreL (Plavix) tablet 75 mg 75 mg, Oral, DAILY, First dose on Fri05/21/22 at 0900, Until Discontinued, Recovery (Recovery-Hospital Unit), Routine 0816 (Given - Provider: Etta Don, RN) folic acid (Folvite) tablet 1,000 mcg 1,000 mcg, Oral, DAILY, First dose on Fri05/16/22 at 0900, Until Discontinued, Routine 0838 (Given - Provider: Caroline Bah RN) 0852 (Given - Provider: Barbie oJyce, DION)1750 ([facility] Hold - Provider: Admin Adt - Reason: Transfer to a Procedural area)1955 ([facility] Unhold - Provider: Admin Adt) 814 (Given - Provider: Etat Don RN) metoprolol tartrate (Lopressor) tablet 12.5 mg (CANCELED) 12.5 mg, Oral, EVERY 12 HOURS SCHEDULED (2 times per day), First dose on Fri05/18/22 at 2100, Until Discontinued, Routine 0838 (Given - Provider: Caroline Bah RN)2008 (Given - Provider: Nuris Lester RN) 0853 (Given - Provider: Barbie Joyce RN)1750 ([facility] Hold - Provider: Admin Adt - Reason: Transfer to a Procedural area)1955 ([facility] Unhold - Provider: Admin Adt)2004 (Given - Provider: Tere Blankenship RN) 0817 (Given - Provider: Etta Don RN) metoprolol tartrate (Lopressor) tablet 12.5 mg 12.5 mg, Oral, EVERY 6 HOURS SCHEDULED, First dose (after last modification) on Fri05/21/22 at 1200, Until Discontinued, Routine 1136 (Given - Provider: Etta Don RN) multivitamin with minerals (Thera M) tablet 1 tablet 1 tablet, Oral, DAILY, First dose on Fri05/16/22 at 0900, Until Discontinued, Routine 0838 (Given - Provider: Caroline Bah RN) 0852 (Given - Provider: Barbie Joyce RN)1750 ([facility] Hold - Provider: Admin Adt - Reason: Transfer to a Procedural area)1955 ([facility] Unhold - Provider: Admin Adt) 0816 (Given - Provider: Etta Don RN) pantoprazole EC (Protonix) tablet 40 mg 40 mg, Oral, DAILY, First dose on Fri05/22/22 at 0900, Until Discontinued, DO NOT CRUSH OR OPEN polyethylene glycoL (Miralax) packet 17 g 17 g, Oral, 2 TIMES DAILY, First dose on Fri05/16/22 at 2100, Until Discontinued, Routine 0838 (Given - Provider: Caroline Bah RN)2099 (Not Given - Provider: Nuris Lester, DION - Reason: Patient/family refused) 899 (Not Given - Provider: Barbie Joyce RN - Reason: NPO)1750 ([facility] Hold - Provider: Admin Adt - Reason: Transfer to a Procedural area)1955 ([facility] Unhold - Provider: Admin Adt)2131 (Given - Provider: Tere Blankenship RN) 0815 (Given - Provider: Etta Don RN) rivaroxaban (Xarelto) tablet 20 mg 20 mg, Oral, DAILY, First dose on Fri05/21/22 at 1415, Until Discontinued, Take with food, Routine, Restricted anticoagulant, choose the most appropriate response: Continuation of ongoing therapy 1408 (Given - Provider: Etta Don RN) rosuvastatin (Crestor) tablet 40 mg 40 mg, Oral, EVERY EVENING, First dose on Fri05/16/22 at 0900, Until Discontinued, Routine 0838 (Given - Provider: Caroline Bah RN) 0853 (Given - Provider: Barbie Joyce RN)1750 ([facility] Hold - Provider: Admin Adt - Reason: Transfer to a Procedural area)1955 ([facility]hold - Provider: Admin Adt) 0816 (Given - Provider: Etta Don RN) sodium chloride 0.9 % (flush) (BD PosiFlush Normal Saline 0.9) flush 5 mL 5 mL, Intravenous, 2 TIMES DAILY, First dose on Fri05/15/22 at 2245, Until Discontinued, Recovery (Recovery-Hospital Unit), Routine 899 (Not Given - Provider: Caroline Bah RN - Reason: Contraindicated)2009 (Given - Provider: Nuris Lester RN) 09 (Not Given - Provider: Barbie Joyce RN - Reason: See comment - Comment: PIV infusing)2099 (Not Given - Provider: Tere Blankenship RN - Reason: Order parameters not met - Comment: infusing) 0819 (Given - Provider: Etta Don, RN) tamsulosin (Flomax) capsule 0.4 mg 0.4 mg, Oral, DAILY, First dose on Brandi 05/16/22 at 0900, Until Discontinued, DO NOT CRUSH OR OPEN, Routine 0838 (Given - Provider: Caroline Bah RN) 0853 (Given - Provider: Barbie Joyce RN)1750 ([facility] Hold - Provider: Admin Adt - Reason: Transfer to a Procedural area)1955 ([facility] Unhold - Provider: Admin Adt) 816 (Given - Provider: Etta Don, DION) thiamine (Vitamin B1) tablet 100 mg 100 mg, Oral, DAILY, First dose on Brandi 05/16/22 at 0900, Until Discontinued, Routine 0838 (Given - Provider: Caroline Bah RN) 0853 (Given - Provider: Barbie Joyce RN)1750 ([facility] Hold - Provider: Admin Adt - Reason: Transfer to a Procedural area)1955 ([facility] Unhold - Provider: Admin Adt) 0816 (Given - Provider: Etta Don, DION) valsartan (Diovan) tablet 40 mg 40 mg, Oral, 2 TIMES DAILY, First dose on 05/18/22 at 2100, Until Discontinued 0838 (Given - Provider: Caroline Bah RN)2008 (Given - Provider: Nuris Lester RN) 0853 (Given - Provider: Barbie Joyce RN)1750 ([facility] Hold - Provider: Admin Adt - Reason: Transfer to a Procedural area)1955 ([facility] Unhold - Provider: Admin Adt)2005 (Given - Provider: Tere Blankenship RN) 0816 (Given - Provider: Etta Don RN) Continuous Medication Order 05/19/2022 05/20/2022 05/21/2022 heparin (porcine) 50 units/mL in sodium chloride 0.45% 500 mL infusion(Linked Group 1) 0-5,000 Units/hr (0-100 mL/hr), Intravenous, [...] Heparin UFH Level - Per Protocol, Routine 193 (New Bag - Provider: Nuris Lester RN) 1600 (New Bag - Provider: Barbie Joyce RN)175 ([facility] Hold - Provider: Admin Adt - Reason: Transfer to a Procedural area)195 ([facility] - Provider: Admin Adt)1999 (Not Given - Provider: Tere Blankenship RN - Reason: Contraindicated - Comment: TR band in place) 021 (Restarted - Provider: Tere Blankenship RN - Comment: 4 hours since tr band off, per MD patiño)1301 (Rate/Dose Verify - Provider: Etta Don RN)1743 (Due: Stopped) sodium chloride 0.9% infusion () 150 mL/hr, Intravenous, CONTINUOUS, Starting on Fri05/20/22 at 1915, Until Fri05/20/22 at 2214, Recovery (Recovery-Hospital Unit) 1900 (Continued Bag - Provider: Cassy Schultz RN)2200 (Stopped - Provider: Tere Blankenship RN) PRN Medication Order 05/19/2022 05/20/2022 05/21/2022 acetaminophen (Tylenol) tablet 650 mg 650 mg, Oral, EVERY 6 HOURS PRN, Starting on Brandi 05/16/22 at 1606, Until Fri05/21/22 at 1743, Pain, Maximum dose of acetaminophen is 4000 mg from all sources in 24 hours. When ordered for pain, acetaminophen should be given even when other ordered pain medications are indicated. , Routine 1750 ([facility] Hold - Provider: Admin Adt - Reason: Transfer to a Procedural area)1955 ([facility] Unhold - Provider: Admin Adt) alum-mag hydroxide-simeth (Maalox) (40 mg-40 mg-4 mg/mL) oral liquid 10 mL 10 mL, Oral, 3 TIMES DAILY PRN, Starting on Fri05/20/22 at 1850, Until Fri05/21/22 at 1743, Heartburn, Routine 190 (Given - Provider: Cassy Schultz RN - Comment: given by other) aspirin chewable tablet (CANCELED) ONCE PRN, Starting on Fri05/20/22 at 1746, Until Fri05/20/22 at 1842, Intra-Operative (Intra-Procedure), Routine 1745 (Given - Provider: Flavia Schuler RN) bisacodyL (Dulcolax) suppository 10 mg 10 mg, Rectal, DAILY PRN, Starting on Brandi 05/16/22 at 1604, Until Fri05/21/22 at 1743, Constipation, Routine 175 ([facility] Hold - Provider: Admin Adt - Reason: Transfer to a Procedural area)1955 ([facility] Unhold - Provider: Admin Adt) clopidogreL (Plavix) tablet (CANCELED) ONCE PRN, Starting on Fri05/20/22 at 1746, Until Fri05/20/22 at 1842, Intra-Operative (Intra-Procedure), Routine 1745 (Given - Provider: Flavia Schuler, DION) fentaNYL (pf) (50 mcg/mL) multi-dose injection (CANCELED) ONCE PRN, Starting on Fri05/20/22 at 1714, Until Fri05/20/22 at 1842, Intra-Operative (Intra-Procedure), Routine 1713 (Given - Provider: Abundio Servin MD) heparin (porcine) (1,000 units/mL) injection 0-8,000 Units(Linked Group 1) 0-8,000 Units, Intravenous, BOLUS PER HEPARIN PROTOCOL, Starting on Brandi 05/16/22 at 0758, Until Tu05/21/22 at 1523, Per Protocol, START ADJUSTMENT SCHEDULE 6 HOURS AFTER STARTING INFUSION Bolus doses are rounded to the nearest 100 units. If Heparin UFH Level is: - Less than 0.1 international unit/mL: Bolus 70 units/kg (Maximum of 8,000 units) = Bolus 5,600 units - 0.1 - 0.19 International unit/mL: Bolus 35 units/kg (Maximum of 4,000 units) = Bolus 2,800 units - Equal to or greater than 0.2 international unit/mL: No Bolus, Routine 1750 ([facility] Hold - Provider: Admin Adt - Reason: Transfer to a Procedural area)1955 ([facility] Unhold - Provider: Admin Adt) heparin (porcine) (1,000 units/mL) injection (CANCELED) ONCE PRN, Starting on Fri05/20/22 at 1726, Until Fri05/20/22 at 1842, Cath (Intra-Procedure), Routine 172 (Given - Provider: Flavia Schuler RN)1745 (Given - Provider: Negra Bailey, DION) iohexoL (Omnipaque) (350 mg/mL) solution (CANCELED) ONCE PRN, Starting on Fri05/20/22 at 1841, Until Fri05/20/22 at 1842, Cath (Intra-Procedure), Routine 1840 (Given - Provider: Abundio Servin MD) ipratropium-albuteroL (Duoneb) 0.5 mg-3 mg(2.5 mg base)/3 mL nebulizer solution 3 mL 3 mL, Nebulization, 4 TIMES DAILY PRN, Starting on Fri05/15/22 at 1717, Until Fri05/21/22 at 1743, Wheezing, Routine 175 ([facility] Hold - Provider: Admin Adt - Reason: Transfer to a Procedural area)1955 ([facility] Unhold - Provider: Admin Adt) lidocaine (Xylocaine) 1% (10 mg/mL) injection 3 mg 3 mg (0.3 mL), Subcutaneous, ONCE PRN, 1 dose, Starting on Fri05/15/22 at 2147, Until Fri05/21/22 at 1743, for discomfort with PIV insertion, Recovery (Recovery-Hospital Unit), Routine metoprolol (LOPRESSOR) injection 5 mg 5 mg, Intravenous, EVERY 5 MIN PRN, Starting on Fri05/19/22 at 0506, Until Fri05/21/22 at 1743, Elevated Heart Rate, up to 3 doses for HR >110 0605 (Given - Provider: Emily Sauceda RN) 1750 ([facility] Hold - Provider: Admin Adt - Reason: Transfer to a Procedural area)1955 ([facility] Unhold - Provider: Admin Adt) midazolam (pf) (Versed) (1 mg/mL) multi-dose injection (CANCELED) ONCE PRN, Starting on Fri05/20/22 at 1714, Until Fri05/20/22 at 1842, Cath (Intra-Procedure), Routine 1713 (Given - Provider: Abundio Servin MD) ondansetron (pf) (Zofran) (2 mg/mL) injection 4 mg(Linked Group 2) 4 mg, Intravenous, EVERY 8 HOURS PRN, Starting on Fri05/15/22 at 2147, Until Fri05/21/22 at 1743, Nausea, May repeat times one in 30 minutes if ineffective. If multiple antiemetics are ordered, use ondansetron first, Recovery (Recovery-Hospital Unit) ondansetron (Zofran) tablet 4 mg(Linked Group 2) 4 mg, Oral, EVERY 8 HOURS PRN, Starting on Fri05/15/22 at 2147, Until Fri05/21/22 at 1743, Nausea, Vomiting, If multiple antiemetics are ordered, use ondansetron first. PO Preferred. If patient unable to take PO, may give IV if ordered. May repeat times one in 45 minutes if ineffective., Recovery (Recovery-Hospital Unit), Routine oxyCODONE (Roxicodone) tablet 10-15 mg(Linked Group 3) 10-15 mg, Oral, EVERY 4 HOURS PRN, Starting on Fri05/17/22 at 0655, Until Fri05/21/22 at 1743, Pain, severe pain (7-10), Initial dose 10mg. If pain control not adequate in 60 minutes, give additional 5mg, Routine 1750 ([facility] Hold - Provider: Admin Adt - Reason: Transfer to a Procedural area)1955 ([facility] Unhold - Provider: Admin Adt) oxyCODONE (Roxicodone) tablet 5-10 mg(Linked Group 3) 5-10 mg, Oral, EVERY 4 HOURS PRN, Starting on Fri05/17/22 at 0655, Until Fri05/21/22 at 1743, Pain, moderate pain (4-6), Initial dose 5mg. If pain control not adequate in 60 minutes, give additional 5mg, Routine 1750 ([facility] Hold - Provider: Admin Adt - Reason: Transfer to a Procedural area)1955 ([facility] Unhold - Provider: Admin Adt) sodium chloride 0.9 % (flush) (BD PosiFlush Normal Saline 0.9) flush 5-20 mL 5-20 mL, Intravenous, EVERY 1 MIN PRN, Starting on Fri05/15/22 at 2147, Until Fri05/21/22 at 1743, flush, Flush pertains to all indwelling lines. Flush per protocol found in the job aid using the link provided on this medication record., Recovery (Recovery-Hospital Unit), Routine Linked Groups Order Group 1: heparin (porcine) 50 units/mL in sodium chloride [...] And heparin (porcine) (1,000 units/mL) injection 0-8,000 UnitsJump to med 0-8,000 Units, Intravenous, BOLUS PER HEPARIN PROTOCOL, Starting on Brandi 05/16/22 at 0758, [...] units/kg (Maximum of 4,000 units) = Bolus 2,800 units - Equal to or greater than 0.2 international unit/mL: No Bolus, Routine Group 2: ondansetron (Zofran) tablet 4 mgJump to med 4 mg, Oral, EVERY 8 HOURS PRN, Starting on Fri05/15/22 at 2147, Until Fri05/21/22 at 1743, Nausea, Vomiting, If multiple antiemetics are ordered, use ondansetron first. PO Preferred. If patient unable to take PO, may give IV if ordered. May repeat times one in 45 minutes if ineffective., Recovery (Recovery-Hospital Unit), Routine Or ondansetron (pf) (Zofran) (2 mg/mL) injection 4 mgJump to med 4 mg, Intravenous, EVERY 8 HOURS PRN, Starting on Fri05/15/22 at 2147, Until Fri05/21/22 at 1743, Nausea, May repeat times one in 30 minutes if ineffective. If multiple antiemetics are ordered, use ondansetron first, Recovery (Recovery-Hospital Unit) Group 3: oxyCODONE (Roxicodone) tablet 5-10 mgJump to med 5-10 mg, Oral, EVERY 4 HOURS PRN, Starting on Fri05/17/22 at 0655, Until Fri05/21/22 at 1743, Pain, moderate pain (4-6), Initial dose 5mg. If pain control not adequate in 60 minutes, give additional 5mg, Routine Or oxyCODONE (Roxicodone) tablet 10-15 mgJump to med 10-15 mg, Oral, EVERY 4 HOURS PRN, Starting on Fri05/17/22 at 0655, Until Fri05/21/22 at 1743, Pain, severe pain (7-10), Initial dose 10mg. If pain control not adequate in 60 minutes, give additional 5mg, Routine documented in this encounter Care Teams Youth Development Specialist Relationship Specialty Start Date End Date Bobby Das MD [address] [place] [address] [place] [address] PCP - General 10/02/10 documented as of this encounter
--- OUTSIDE RECORDS SUMMARY | 2024-09-17 01:32 | XMS_ITS | Encounter Summary ---
Author Organization [facility] [address] Care Team Providers Care Tow Feeder Name Role Phone Bobby Das MD Primary Care Provider [phone] Reason for Referral * Diagnostic Test (Routine) - Closed Specialty Diagnoses / Procedures Referred By Contac t Referred To Contact Cardiology Diagnoses Paroxysmal atrial fibrillation Procedures Ziopatch 48 Hrs-15 Days Nasrin Parra PA [facility] [place] [address] [facility] [place] [address] Referral ID Status Reason Start Date Expiration Date V isits Requested Visits Authorized [id number] Closed Specialty Service Requested 05/21/2022 10/21/2022 1 1 Reason for Visit * Auth/Cert Specialty Diagnoses / Procedures Referred By Contac t Referred To Contact Diagnoses Limb ischemia LLE thrombus Fito Summers MD [facility] [place] [address] [facility] Referral ID Status Reason Start Date Expiration Date Visits Re quested Visits Authorized [id number] 1 1 Encounter Details Date Type Department Care Team (Latest Contact Info) Description 05/21/2022 3:30 PM EDT - 05/21/2022 11:59 PM EDT Hospital Encounter Non-Invasive [place] [address] Paroxysmal atrial fibrillation Discharge Disposition: Home Social History Tobacco Use [...] End Date fluticasone propionate (FLONASE) 50 mcg/actuation [place], Suspension 1 spray by Each Nare route [...] Procedure Name Priority Date/Time Associated Diagnosis Comments ZIOPATCH 48 HRS-15 DAYS Routine 05/21/2022 4:33 PM EDT Paroxysmal atrial fibrillation documented in this encounter Results * Ziopatch 48 Hrs-15 Days (05/21/2022 4:33 [...] Fito Summers MD CARDIAC SERVICES ORD ERABLES documented in this encounter Visit Diagnoses Diagnosis Paroxysmal atrial fibrillation Atrial fibrillation documented in this encounter Care Teams Tow Feeder Relationship Specialty Start Date End Date Bobby Das MD [address] [place] [address] [place] [address] PCP - General 10/02/10 documented as of this encounter
--- OUTSIDE RECORDS SUMMARY | 2024-09-17 01:32 | XMS_ITS | Encounter Summary ---
Author Organization [facility] [place] [address] Care Team Providers Care Diesel Pile Driver Operator Name Role Phone Bobby Das MD Primary Care Provider [phone] Encounter Details Date Type Department Care Team (Late st Contact Info) Description 05/24/2022 Telephone Cardiology at [address] [phone] Kourtney Jimenez, RN Social History Tobacco Use [...] Miscellaneous Notes * Telephone Encounter - Kourtney Jimenez RN - [...] filedocumented in this encounter Care Teams Diesel Pile Driver Operator Relationship Specialty Start Date End Date Bobby Das MD [address] [place] [address] [place] [phone] PCP - General 10/02/10 documented as of this encounter
--- OUTSIDE RECORDS SUMMARY | 2024-09-17 01:33 | XMS_ITS | Encounter Summary ---
Author Organization [facility] Address [facility] [place] [address] Care Team Providers Care Needle Molder Name Role Phone Bobby Das MD Primary Care Provider [phone] Reason for Visit * - Closed Specialty Diagnoses / Procedures Referred By Colby quezada Referred To Contact Procedures Film Library- Storage Only MR Spine Bobby Das MD [address] [place] [address] [place] [address] Referral ID Status Reason Start Date Expiration Date Visits Re quested Visits Authorized [id number] Closed 02/23/2021 02/23/2022 1 1 Encounter Details Date Type Department Care Team (Late st Contact Info) Description 02/20/2021 Ancillary Procedure Radiology Library at [facility] [place] [address] Bobby Das MD [address] [place] [address] [place] [address] Social History Tobacco Use Types Packs/Day Years Used Date Smoking Tobacco: Some Days Cigarettes 1 50 Smokeless Tobacco: Never Alcohol Use Standard [...] Procedure Name Priority Date/Time Associated Diagnosis Comments FILM LIBRARY STORAGE ONLY MR SPINE Routine 02/20/2021 12:00 AM EDT documented in this encounter Results * Film Library- Storage Only MR Spine (02/20/2021 12:00 AM EDT) Narrative [facility] - 02/23/2021 12:54 PM EDT This exam is auto-finalizing. It's purpose is for storage only. Bobby Das MD IMG FILM LIBRARY ORD ERABLES [place], [place] documented in this encounter Visit Diagnoses Not on filedocumented in this encounter Care Teams Needle Molder Relationship Specialty Start Date End Date Bobby Das MD [address] [place] [address] [place] [address] PCP - General 10/02/10 documented as of this encounter
--- OUTSIDE RECORDS SUMMARY | 2024-09-17 01:33 | XMS_ITS | Encounter Summary ---
Author Organization [facility] Address [facility] [place] [address] Care Team Providers Care Drama Critic Name Role Phone Bobby Das MD Primary Care Provider [phone] Encounter Details Date Type Department Care Team (Late st Contact Info) Description 05/15/2022 9:35 AM EDT Ancillary Procedure Radiology Library at [facility] [place] [address] Matt Branham MD [facility] [place] [address] Social History Tobacco Use Types Packs/Day Years [...] Associated Diagnosis Comments FILM LIBRARY STORAGE ONLY DX CHEST Routine 05/15/2022 9:31 AM EDT documented in this encounter Results * Film Library- Storage Only DX Chest (05/15/2022 9:31 AM EDT) Narrative [facility] - 05/15/2022 9:31 AM EDT This exam is auto-finalizing. It's purpose is for storage only. Matt Branham MD IM FILM LIBRARY ORD ERABLES [facility] [place], [place] documented in this encounter Visit Diagnoses Not on filedocumented in this encounter Care Teams Drama Critic Relationship Specialty Start Date End Date Bobby Das MD [address] [place] [address] [place] [phone] PCP - General 10/02/10 documented as of this encounter
--- OUTSIDE RECORDS SUMMARY | 2024-09-17 01:33 | XMS_ITS | Encounter Summary ---
[place] [address] Care Team Providers Care Retail Representative Name Role Phone Bobby Das MD Primary Care Provider [phone] Reason for Visit * Reason Comments Left Leg Pain * Auth/Cert Specialty Diagnoses / Procedures Referred By Colby quezada Referred To Contact Diagnoses Limb ischemia LLE thrombus Fito Summers MD [facility] [place] [address] [facility] Referral ID Status Reason Start Date Expiration Date Visits Re quested Visits Authorized [id number] 1 1 Encounter Details Date Type Department Care Team (Late st Contact Info) Description 05/20/2022 3:30 PM EDT - 05/20/2022 4:30 PM EDT [place] [address] Abundio Servin MD [facility] [place] [address] CARDIAC CATHETERIZATION Social History Tobacco Use Types Packs/Day Years [...] 36.8 ??C (98.3 ??F) 05/20/2022 3:36 PM ED T Respiratory Rate 18 05/20/2022 3:36 PM EDT [...] onset Afib who presents in transfer from [facility] with acute limb ischemia of the LLE. [...] service with ALI and emergently went to [facility] for L CABLE TOOL OPERATOR transverse arteriotomy and primary repair, thromboembolectomy of L SFA/PFA/CABLE TOOL OPERATOR, reperfusion venous drainage for 250 cc, [...] recovery with good POintake, adequate output following cooper removal, and pain [...] Discharge Condition: Good Discharge to: Home with [facility]. [address] [place] [address] Future Appointments and Orders Future Appointments and Orders Future Appointments Provider Department Dept Phone 05/23/2022 10:30 AM Loretta Cohen MD Dermatology at [facility] Arrive at: [facility] [address] [place] [address] 06/07/2022 1:30 PM Gail Rae APRN Vascular Surgery at [facility] Arrive at: [facility] Area [phone] 06/13/2022 7:30 AM Edson Lagos [place] Vascular Lab at [facility] Arrive at: [facility] Area [phone] 06/13/2022 8:00 AM Fito Summers MD Vascular Surgery at [facility] Arrive at: [facility] Area [phone] 06/13/2022 10:00 AM Alan Reid MD Cardiology at [facility] Arrive at: [facility] Area [phone] Future Orders Complete By Expires Ziopatch 48 Hrs-15 Days [ICZ7100 CPT(R)] 05/21/2022 11/20/2022 Process Instructions: Scheduling Instructions: Comments: Questions: Does the patient have a pacemaker? If yes provide HI/LO settings: Apply for 7 or 14 days?: 7 Where will study be performed?: [facility] JOSSELYN, legs, multiple levels [VAS8 Custom] 06/21/2022 (Approximate) 12/21/2022 Process Instructions: There is no in-house vascular maintenance shop laborer available on weeknights (5pm-8am), weekends, or holidays. IF THIS IS A REQUEST FOR AN EMERGENT STUDY DURING THOSE HOURS, please have the senior provider responsible for the patient page the Vascular Surgery Fellow/Senior Resident manager collection to discuss options. Scheduling Instructions: Questions: Indication for study/signs & symptoms: ALI s/p L fem cutdown with thromboembolectomy Question to be answered: Perfusion to feet? Please check toe pressure Preferred location?: [facility] Clinics Referral to Cardiology [...] Zamora for admission to Home Health. [address] [place] [address] (home) Date of : 1940 Inpatient DOCUMENTATION FOR VNA SERVICES (INCLUDING THOSE PATIENTS WITH MEDICARE COVERAGE REQUIRING HOME VNA SERVICES AND/OR HOSPICE SERVICES) PATIENT'S LOCATION: Koko Zamora [address] [place] [address] (home) Cell: No relevant phone numbers on file. Spinner Tender's Name: Koko In discussion with the attending physician, it is certified that this patient is under their care and that they, or a Nurse Practitioner,Clinical Nurse specialist or Physician Intellectual Property Paralegal who is working directly with them, had [...] for managing ADL's. HOME HEALTH CARE AGENCY: [facility] [address] [place] [id number] Start of care: Within 24 to 48 [...] from this patient's PCP: Bobby Das MD [address] [place] [address] / [place] [address] All VNA agencies which cover the [...] For any problems or questions please call [phone] For issues on weeknights after 5pm and weekends please call [phone] and ask for the Vascular Fellow manager collection. JOSEE Santiago Vascular Surgery 05/21/2022 documented in [...] For any problems or questions please call [phone] For issues on weeknights after 5pm and weekends please call [phone] and ask for the Vascular Fellow manager collection. documented in this encounter Medications at Time of Discharge Medication Sig Dispensed Refills Start Date End Date fluticasone propionate (FLONASE) 50 mcg/actuation [place], Suspension 1 spray by Each Nare route [...] onset Afib who presents in transfer from [facility] with acute limb ischemia of the LLE. [...] status, full code. JOSEE Santiago 05/21/2022 Pager: [phone] * Brannon Isaacs - 05/21/2022 10:35 AM [...] plan as stated. Time IN / OUT: 8659-2470 Total Minutes, Physical Therapy: 25 Billing Code: 2 BOSTON Isaacs DPT Pager: [phone] Physical Therapy Inpatient Rehabilitation Department * [place] [...] 04/17/2021 in Pain and Spine Center at [facility] Weight 79.8 kg (175 [...] and plan of care per Dr. Mcnamara (apricot packer). Please refer to her note above for [...] ischemia (thromboembolic) and he is a intermediate smoker (1/2 ppd, recommend nicotine patch). His [...] ED to Hosp-Admission (Current) from 05/15/[address] [place] [address] Office Visit from 04/17/2021 in Pain and Spine Center at [facility] Weight 79.8 kg (175 [...] and plan of care per Dr. Mcnamara (apricot packer). Please refer to her note above for [...] a mitral repair in 2000 (not at [facility])with no CAD at that time. Currently, an [...] AF and the first documented HR at [facility] was 125 bpm (presented [...] We will continue to follow. * Dottie Hill, MANAGER OF PHOTOGRAPHY - 05/20/2022 8:34 AM EDT Vascular Surgery Progress Note Koko Zamora is a 81 y.o. male with w new onset Afib who presents in transfer from [facility] with acute limb ischemia of the LLE. [...] management following Dottie Hill APRN 05/20/2022 Pager: [phone] * Laney Atkins RN - 05/20/2022 1:14 AM EDT Pt Koko transferred to room from [facility]. A&Ox4, oriented to room and call boo. Masimo and telemetry placed. In agreement with assessment as documented this evening by Nuris ASHLEY. No complaintsat this time. Pt aware of NPO status and plan for cardiac cath in AM. Urinal provided. Resting comfortably in bed. * Nuris Lester RN - 05/20/2022 1:09 AM EDT Pt. Transferred to [facility]. RN accompanied patient to floor and handed off to [facility] RN * Dottie Hill APRN - 05/19/2022 10:02 AM EDT Vascular Surgery Progress Note Koko Zamora is a 81 y.o. male with w new onset Afib who presents in transfer from [facility] with acute limb ischemia of the LLE. [...] 36.4* PLATELET 168 130* 149 Recent Labs 05/17/22332 NA 137 K 3.5 CL 102 CO2 [...] management following Dottie Hill APRN 05/19/2022 Pager: [phone] * Emily Sauceda RN - 05/19/2022 6:28 AM EDT OUTCOME EVALUATION NOTE: OUTCOME SUMMARY: Patient AOx4, VSS on RA. Afib on tele. HR controlled w/ PRN metop, given x2. Denies CP, SOB, n/v. See flowsheets for NVC. Dressings to LLE CDI, prevena WV to groin intact. Voiding to urinal. LBM CATERING SERVER,patient stating he will maybe try the laxative [...] LLE C/D/I. Incisions to LLE WDL and STAFF SERVICES MANAGER. Denies n/t to BLE. 2+ dorsal pulses noted. Heparin drip infusing at 1200 units/hr. UFH within therapeutic range, next labs due with morning labs. Voiding adequately without difficulty to bedside urinal. LBM CATERING SERVER.Up to chair this AM with nursing staff. Worked with PT, tolerated well. Diet changed to regular at 1800. Plan is for cardiac cath on Friday. PLAN MOVING FORWARD: Bleeding precautions Pain management neurovascular checks PT/OT chemical laboratory technician INDIVIDUALIZED FALL PREVENTION INTERVENTIONS: Patient-specific [...] CARE PLAN GOAL OUTCOME EVALUATION: * Dottie Hill, MANAGER OF PHOTOGRAPHY - 05/18/2022 12:50 PM EDT Vascular Surgery Progress Note Koko Zamora is a 81 y.o. male with w new onset Afib who presents in transfer from [facility] with acute limb ischemia of the LLE. [...] mL Intravenous BID ??? PHENobarbitaL 0.12 mg/kg/dose (Moran) Oral BID ??? thiamine 100 mg Oral [...] management following Dottie Hill APRN 05/18/2022 Pager: [phone] * Brannon Isaacs - 05/18/2022 10:00 AM [...] Biopsy Spine 07/20/2019 Bobby Marshall MD [facility] INTERVENTIONL RAD ??? IR VERTEBROPLASTY LUMBAR MULTIPLE LEVELS 07/20/2019 IR Vertebroplasty Lumbar Multiple Levels 07/20/2019 Bobby Marshall MD [facility] INTERVENTIONL RAD ??? IR VERTEBROPLASTY THORACIC SINGLE LEVEL 10/25/2020 IR Vertebroplasty Thoracic Single Level 10/25/2020 Matt Chisholm MD [facility] INTERVENTIONL RAD ??? PRO EMBLC/THRMBC FEMORAL POPLITEAL AORTO-ILIAC ARTERY Left 05/15/2022 EMBOLECTOMY OR THROMBECTOMY, FEMOROPOPLITEAL, AORTOILIAC ARTERY BY LEG INCISION (WRVU 19.48) performed by Fito Summers MD at [facility] MAIN OR Social History: Pt lives [...] outlinedin this evaluation. Time IN / OUT: 2681-4544 Total Minutes, Physical Therapy: 30 Billing Code: Basilio Brannon Isaacs, PT Pager: [phone] Physical Therapy Inpatient Rehabilitation Department * Emily Sauceda, RN - 05/18/2022 4:34 AM EDT OUTCOME EVALUATION NOTE: OUTCOME SUMMARY: Patient AOx4, VSS on 2LNC. Afib on tele. HR above 120, MD aware, PRN IV metop given x1, HR returnedto 90's-low 100's. Denies CP, SOB, n/v. See flowsheets for NVC. Dressings to LLE CDI, prevena WV togroin intact. Voiding to urinal. LBM CATERING SERVER. Heparin gtt therapeutic. Pain controlled. Patient sleeping [...] adequately without difficulty to bedside urinal. LBM CATERING SERVER. Patient not OOB this shift. Currently NPO awaiting procedure in labor relations teacher. PLAN MOVING FORWARD: Bleeding precautions Pain management neurovascular checks PT/OT NPO for labor relations teacher INDIVIDUALIZED FALL PREVENTION INTERVENTIONS: Patient-specific fall [...] CARE PLAN GOAL OUTCOME EVALUATION: * Lisbet Herman, PT - 05/17/2022 2:40 PM EDT Physical Therapy 05/17/22 1440 Evaluation & Treatment Document Type contact Total Minutes, Physical Therapy 10 Comment, Session Not Performed Orders recieved on Koko Zamora who is a 81 y.o male with historyof atrial fibrillation not on anticoagulation, and GI bleeding who presented to the Emergency Department as a transfer from [facility] with left lower extremity limb ischemia. He went to [facility] and was started on heparin and transferred to [facility] for evaluation by vascular surgery [...] will be going to the labor relations teacher for evaluation. Will defer PT eval at present but will see as ordered post cardiac catheritizaton. Social Hx:Pt lives with his Ursula in [place], [place] in a 2 level home in [...] Precautions: Pt will be WBAT LLE LISBET HERMAN, PT Pager # [phone] In-Pt Rehab Medicine * Dottie Hill, MANAGER OF PHOTOGRAPHY - 05/17/2022 7:42 AM EDT Vascular Surgery Progress Note Koko Zamora is a 81 y.o. male with w new onset Afib who presents in transfer from [facility] with acute limb ischemia of the LLE. [...] mL Intravenous BID ??? PHENobarbitaL 0.24 mg/kg/dose (Moran) Oral BID Followed by ??? [START ON 05/18/2022] PHENobarbitaL 0.12 mg/kg/dose (Moran) Oral BID ??? thiamine 100 mg Oral [...] management following Dottie Hill APRN 05/17/2022 Pager: [phone] * Sary Dos Santos RN - 05/17/2022 [...] indirect monitoring]: Masimo, Purposeful Rounding, Nurse Knowledge Exchange at Bedside, [...] AM. Lft lower drsg CDI. * Edward Rodríguez MD - 05/16/2022 3:33 PM EDT Vascular Surgery Progress Note Koko Zamora is a 81 y.o. male with w new onset Afib who presents in transfer from [facility] with acute limb ischemia of the LLE. [...] mL Intravenous BID ??? PHENobarbitaL 0.48 mg/kg/dose (Moran) Oral BID Followed by ??? [START ON 05/17/2022] PHENobarbitaL 0.24 mg/kg/dose (Moran) Oral BID Followed by ??? [START ON 05/18/2022] PHENobarbitaL 0.12 mg/kg/dose (Moran) Oral BID ??? thiamine 100 mg Oral [...] management following Edward Rodríguez MD 05/16/2022 Pager: [phone] * Sary Dos Santos RN - 05/16/2022 [...] at Bedside, Bed Alarm Set * Barbie Ashraf MD - 05/15/2022 7:15 PM [...] adequate Barbie Ashraf MD Vascular Surgery 05/15/22 * Dottie Gutierrez RN - 05/15/2022 6:49 PM EDT 163 Patient admitted to PACU. Hand off received from Torres Aguilar CRNA. care assumed. Hypotensiveby A-line, waveform dampened. Will rely on cuff. Assessments as documented. Monitors on, alarms audible and individualized to patient. 1929 PACU D/C criteria met 2129 Hand off to DION Ramirez [facility] documented in this encounter H&P Notes * [...] onset Afib who presents in transfer from [facility] with acute limb ischemia of the LLE. The patient had sudden pain starting at 630 this morning he presented MDR H where he was [...] Biopsy Spine 07/20/2019 Bobby Marshall MD [facility] INTERVENTIONL RAD ??? IR VERTEBROPLASTY LUMBAR MULTIPLE LEVELS 07/20/2019 IR Vertebroplasty Lumbar Multiple Levels 07/20/2019 Bobby Marshall MD [facility] INTERVENTIONL RAD ??? IR VERTEBROPLASTY THORACIC SINGLE LEVEL 10/25/2020 IR Vertebroplasty Thoracic Single Level 10/25/2020 Matt Chisholm MD [facility] INTERVENTIONL RAD Social Hx: Social History [...] Refill ??? fluticasone propionate (FLONASE) 50 mcg/actuation [place], Suspension as needed. ??? fluorouraciL (EFUDEX) 5 [...] and consented. Tim Chicas MD 05/15/2022 Pager: [phone] documented in this encounter ED Notes * Lc Harris PA - 05/15/2022 1:20 PM EDT ED Provider Note HPI: Koko Zamora is a 81 y.o. male with history of atrial fibrillation not on anticoagulation, andGI bleeding who presents to the Emergency Department as a transfer from [facility] with left lower extremity limb ischemia. Patient says that the symptoms started roughly 630 this morning when he developed severe pain in his left lower extremity. He went to [facility] and was started on heparin and transferred to [facility] for evaluation by vascular surgery. [...] lower extremity earlier today and went to [facility] where it was determined that he had ischemia of the left lower extremity. Vascular surgery [facility] was contacted and he was transferred [...] orders before pt. Arrival. Pt. Arrived at [facility] by EMS at 1150, vascular team at bedside documented in this encounter Miscellaneous Notes * Consult Note - Radha Christy RN - 05/21/2022 12:43 PM EDT Koko Laurie Sera was seen today by Cardiac Rehabilitation for: PCI, HFrEF Activity evaluation - Per PT Educational packet regarding CAD, cardiac risk factors, and managing angina given to the patient. Heart diagram reviewed. Koko is on the Vascular Surgery service for LLE limb ischemia, s/p femoral cutdown w/thromboembolectomy. Participation in an outpatient cardiac rehabilitation program at [facility] was discussed. Patient agrees to a referral to this program. Timing will depend on his recovery from Vascular surgery. He is going home w/VNA PT. I gave him the brochure for the program at [facility] for future reference. * Care Management Discharge [...] information for follow-up Home Health & Hospice, [address] [place] [address] Transportation: family or friend will provide Functional [...] Type: *No Product type* / Secondary Insurance: [facility] Prescription Coverage: Yes This plan was formulated with input from patient and team. All are in agreement with plan. GEOFFREY MORALES has communicated with Oli - for initial IMM. Shawn López RN (Jonas) RN/CM - Cellphone: [phone] Pager: [phone] Covering Service RN/CM * Plan of Care [...] (Vinicio Soriano). Current Living Arrangements: home/apartment/condo. Accessibility Concerns: 4 step to enter. Current Functional Ability: DME used at home: commode chair, walker - rolling, raised toilet seat DME Needed at Discharge: Patient is insured through: Primary Insurance: MEDICARE Payor: MEDICARE / Plan: MEDICARE PART A & B / Product Type: *No Product type* / Secondary Insurance: [facility] Last Physical Therapy Recommendation: home with home health, home with supervision with None Last Occupational Therapy Recommendation: with Plan for discharge is: Home w/ Services Outpatient Agency/Support Group Needs: None Home Health Services: Registered Nurse, Physical Therapy, Occupational Therapy Agency Referrals: I have met with the patient to: ?? discuss discharge planning needs. ?? provide the [facility], Office of Care Management letter from the [employer] pertaining to rehabreferrals. ?? provide a letter describing our affiliations within the [facility] and educate about their right to choose where referrals are sent. ?? provide a list of Home Health Agencies / Durable Medical Equipment vendors which serve their preferred geographic area. ?? provided patient with [facility] Star Quality Rating handout. They have requested referrals to: [facility] [employer] [address] [place] [address] Note routed to a Process Consultant who will communicate referrals to facilities and provide any required information. Transportation: family or friend will provide Barriers to discharge: None Plan going forward: Patient is going for a cardiac cath today and plan will come from there. Patient was recently seen by PT and they recommend VNA at time of discharge. [facility] was routed and pended at this time. Care Management will continue to follow and assist with discharge planning and coordination of care as indicated. Anticipated Date of Discharge: 05/21/2022 Nataly RICHMOND RN Phone: [phone] Pager: [phone] * Plan of Care - Laney Atkins [...] included. [facility] [place] [address] [place] [address] INPATIENT CARDIOLOGY CONSULT NOTE Date of Consultation: 05/17/2022 Admit Date: 05/15/2022 Hospital Day 2 days Reason for Consult: New afib Active Problems: Active Hospital Problems Diagnosis Limb ischemia Resolved Hospital Problems No resolved problems to display. HPI: Koko Zamora is a 81 y.o. male with a PMHx significant for MVP (s/p MV repair 2000), tobacco use, HLD, who presented to [facility] from OSH on 05/15 with acute limb ischemia of LLE and was found to bein atrial fibrillation. Patient had sudden onset LLE pain on 05/15 and presented to [facility], where he was started on heparin and transferred to [facility]. Upon arrival to [facility], patient was in atrial [...] Biopsy Spine 07/20/2019 Bobby Marshall MD [facility] INTERVENTIONL RAD IR VERTEBROPLASTY LUMBAR MULTIPLE LEVELS 07/20/2019 IR Vertebroplasty Lumbar Multiple Levels 07/20/2019 Bobby Marshall MD [facility] INTERVENTIONL RAD IR VERTEBROPLASTY THORACIC SINGLE LEVEL 10/25/2020 IR Vertebroplasty Thoracic Single Level 10/25/2020 Matt Chisholm MD [facility] INTERVENTIONL RAD PRO EMBLC/THRMBC FEMORAL POPLITEAL AORTO-ILIAC ARTERY Left 05/15/2022 EMBOLECTOMY OR THROMBECTOMY, FEMOROPOPLITEAL, AORTOILIAC ARTERY BY LEG INCISION (WRVU 19.48) performed by Fito Summers MD at [facility] MAIN OR Allergies Allergen Reactions Aspirin Other (See Comments) GI bleed Out-Patient Medications: Medications Prior to Admission Medication Sig Dispense Refill Last Dose fluorouraciL (EFUDEX) 5 % Cream daily. CRESTOR 40 mg Tablet Take 40 mg by mouth daily. fluticasone propionate (FLONASE) 50 mcg/actuation [place], Suspension as needed. ascorbic acid, vitamin C, [...] 5 mL Intravenous BID PHENobarbitaL 0.24 mg/kg/dose (Moran) Oral BID Followed by [START ON 05/18/2022] PHENobarbitaL 0.12 mg/kg/dose (Moran) Oral BID thiamine 100 mg Oral Daily folic acid 1,000 mcg Oral Daily multivitamin with minerals 1 tablet Oral Daily heparin (porcine) infusion 1,200 Units/hr (05/17/22 8204) Family History: No family history on file. [...] 04/17/2021 in Pain and Spine Center at [facility] Weight 79.8 kg (175 [...] continue to follow Anne-Marie Larson MD Pager [phone] Clinic: [phone] 05/17/22 6:22 PM * Initial Assessments - [...] 180 days) Any patient receiving care at [facility] must abide by [place] law. The hierarchy [...] (i) The agent with financial power of civil rights attorney or a conservator appointed in accordance [...] Address confirmed as: [facility] [facility] [address] Social & Family Supports: All names listed below confirmed with patient as Incorrect. Will notify oli to correct. Wifes address is same as and phone is [phone]. Extended Emergency Contact Information Primary Emergency Contact: Ursula Zamora Address: [address] [place] [address] [facility] Relation: Spouse Current [...] Type: *No Product type* / Secondary Insurance: [facility] Prescription Coverage: Yes Preferred Pharmacy: [id number] - [place], [place] - [address] [facility] [address] [facility] [address] [id number] - [place], [place] - [address] [facility] [address] [place] Status: Patient is a : unable to assess Primary Care Provider: Bobby Das MD [phone] Patient/Caregiver Goals of Treatment: to walk again Potential Needs for Transition of Care: none noted per 05/16 IDR Transportation: family will provide Transportation Anticipated: family or friend will provide Concerns to be Addressed: no discharge needs identified Assessment: Patient is admitted to vascular surg service for left lower extremity limb ischemia Plan: Per PT OT recommendations . Has used [facility] in the past. A member of the Care Management team will continue to monitor progress, follow for continuity of care and assist with transition of care planning. Ifrah Bell RN BSN Service Restorer EmergencySurface Water Manager of Care Management Pager [phone] * Brief Op Note - Erin Garza MD - 05/15/2022 5:04 PM EDT Brief Operative Note Patient Name: Koko Zamora : [id number] MR#: [id number] Case Date: 05/15/2022 Surgeon: Surgeon(s) and Role: [...] Garza MD - 05/15/2022 2:08 PM EDT [facility] Operative Note Patient Name: Koko Zamora : [id number] MR#: [id number] Case Date: 05/15/2022 Surgeon: Surgeon(s) and Role: [...] 3:34 AM EDT DIFFERENTIAL, AUTOMATED Routine 05/18/20 3:34 AM EDT HC CBC,PLT & AUTO DIFF Routine 3:34 AM EDT HEMOGRAM Routine 05/17/2022 3:33 [...] 3:01 AM EDT DIFFERENTIAL, AUTOMATED Routine 05/16/20 3:01 AM EDT HC CBC,PLT & AUTO DIFF Routine 2 3:01 AM EDT HC PHOSPHORUS, SERUM Routine 05/16/2022 3:01 AM EDT HC MAGNESIUM, SERUM Routine 05/16/2022 3 :01 AM EDT BASIC METABOLIC PANEL Routine 05/16/2022 3:01 AM EDT BLOOD GAS ARTERIAL POC Routine 2 3:33 PM EDT BLOOD GAS ARTERIAL POC Routine 2 2:06 PM EDT HC PARTIAL THROMBOPLASTIN TIME STAT 05/15/2022 12:30 [...] Text Report Department: Vascular Surgery Lab Patient: [id number] (KOKO ZAMORA) CPT: 01847 Referring Physician: FITO SUMMERS ?? Phone: Indications: s/p L CABLE TOOL OPERATOR endart. Diabetes mellitus: no Findings: Right [...] 12:35 PM EDT) UF Heparin 0.42 IU/mL [facility] Comment: Heparin (anti-Xa) levels [...] Lab Fito Summers MD HEMATOLOGY ORDERABLE S [facility] [place] [address] * Differential, Automated (05/21/2022 6:15 AM EDT) Neutrophil % 58.8 % [facility] Neutrophil Absolute 3.97 1.70 - 6.10 x10(3)/[facility] Lymph % 25.2 % [facility] Lymphocytes Abs 1.7 0.9 - 3.2 x10(3)/[facility] Monocyte % 12.9 % [facility] Monocyte Abs 0.9 0.3 - 0.9 x10(3)/[facility] Eos % 2.1 % [facility] Eosinophils Abs 0.1 0.0 - 0.4 x10(3)/[facility] Basophil % 0.4 % [facility] Baso Absolute 0.0 0.0 - 0.1 x10(3)/[facility] Immature Gran % 0.60 % [facility] Comment: Immature granulocytes(IG's)percentage and absolute count will include metamyelocytes, myelocytes, and promyelocytes. Blood smears from CBCs yielding IG's will be scanned manually for concordance. If this scan disagrees with the automated IG or if promyelocytes are noted, a manual differential will be performed. Immature Gran Absolute 0.04 0.00 - 0.04 x10(3)/[facility] Blood 05/21/2022 6:15 AM EDT 05/21/2022 6:38 AM EDT Narrative Resulting Agency Comment Spec In Lab Edward Rodríguez MD HEMATOLOGY ORDER NICK [facility] [place] [address] * (ABNORMAL) Hemogram (05/21/2022 6:15 AM EDT) [facility] White Blood Cell 6.8 4.0 - 9.5 x10(3)/ L [facility] Red Blood Cell 3.59(L) 4.58 - 5.54 x10(6)/ L [facility] Hemoglobin 11.8(L) 13.7 - 16.5 g/dL [facility] Hematocrit 34.5(L) 40.5 - 48.5 % [facility] Mean Cell Volume 96.1(H) 82.9 - 93.1 [facility] Mean Cell Hemoglobin 32.9(H) 27.5 - 32.1 pg [facility] Mean Cell Hemoglobin Concentration 34.2 32.0 - 35.7 g/dL [facility] Platelet 198 145 - 357 x10(3)/[facility] RDW Standard Deviation 44.9 36.0 - 45.0 [facility] RDW coefficient of variation 12.6 11.4 - 13.8 % [facility] Mean Platelet Volume 10.0 7.6 - 12.9 [facility] NRBC% auto 0.3 % [facility] NRBC Absolute 0.020(H) 0.000 - 0.000 x10(3)/[facility] Blood 05/21/2022 6:15 AM EDT 05/21/2022 6:38 AM EDT Narrative Resulting Agency Comment Spec In Lab Edward Rodríguez MD HEMATOLOGY ORDER NICK [facility] [place] [address] * EKG 12 Lead (05/20/2022 7:04 PM EDT) Ventricular rate 101 BPM MUSE SYSTEM QRS Duration 116 ms MUSE SYSTEM Q-T Interval 378 ms MUSE SYSTEM QTC Calculated (Bezet) 490 ms MUSE SYSTEM Calculated R [place] -53 degrees MUSE SYSTEM Calculated T [place] 101 degrees MUSE SYSTEM INTERPRETATION Atrial fibrillation [...] Modality Other Narrative 05/20/2022 7:09 PM EDT ?[facility] ? Cardiac Catheterization/Intervention Report ? Patient Name: ZamoraKoko ? Procedure Date: 05/20/2022 ? A #: [id number] ? Primary Physician: Abundio Servin ? Case #: [id number] ? File Name: [id number] ? Catheterization Order Number: [id number] ? [facility] ? Final Report [place], [place] ? Patient Name: ? Koko J. Zamora ? ID#: ?[id number] ? : ?1940 ? Procedure Date: ? [...] was designated as ASA Class IV. The CSHA clinical ?frailty scale is 3: Managing Well. [...] Urgent. 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 Chest pain symptom assessment [...] ?3.5 guiding catheter and a 3.[address] [facility] [address] ??20 Mhz. ??Imaging ?was successful. ??Image [...] A premounted 2.75 x 30 mm Rudy Ziebach (AMPARO) was deployed ? with a maximum [...] may require ?modification of this regimen. Consult [facility] Interventional Cardiology for ?questions. [...] Procedure Note Abundio Servin MD - 07/12/2022 [facility] Cardiac Catheterization/Intervention Report Patient Name: Sera Koko SullivanAlmita Procedure Date: 05/20/2022 A #: [id number] Primary Physician: Abundio Servin Case #: File Name: [id number] Catheterization Order Number: [id number] [facility] FinalReport [place], [place] Patient Name: Koko Zamora ID#:[id number] :1940 Procedure Date: May 20, 2022 Case #: [id number] Room: 1 Case Physician: Abundio Servin M.D. Start: 17:16 Admission:05/15/2022 Referring Physician: Julee Diego Discharge:05/21/2022 Procedures: * Coronary Angiography * Left Heart Catheterization * Coronary Ultrasound * Coronary Angioplasty * Coronary Stent Insertion History Koko Zamora is a 81 year old man. [...] diagnostic procedure was Urgent. 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 Chest pain symptom assessmentwas: [...] 3.5 guiding catheter and a 3.[address] [facility] [address] 20 Mhz.Imaging was successful. Image quality [...] The lesion was predilated with a 2.00mm [id number] MM balloon with a maximum inflation pressure of 12atmospheres. A premounted 2.75 x 30 mm [place] Ziebach (AMPARO) wasdeployed with a maximum inflation pressure [...] situation mayrequire modification of this regimen. Consult [facility] Interventional Cardiologyfor questions. The 1 year bleeding [...] * POCT Glucose (05/20/2022 5:42 PM EDT) [facility] Glucose, POC 123 65 - 199 mg/dL [facility] Comment: Supplemental ranges: <140 mg/dL before meals <180 mg/dL all other times of the day Blood 05/20/2022 5:42 PM EDT 05/20/2022 5:42 PM EDT Fito Summers MD POINT OF CARE TEST O RDERABLES [facility] [place] [address] * (ABNORMAL) BMP w/fasting Glucose (05/20/2022 10:50 AM EDT) Glucose Fasting 152(H) 65 - 99 mg/dL [facility] Comment: ?Fasting* Glucose Interpretive Criteria [...] of Diabetes Mellitus, Position Statement from the [place] [employer]. ??Diabetes Care, Volume 33, Supplement 1, Nov 2009 Blood Urea Nitrogen 11 10 - 20 mg/dL [facility] Creatinine 0.63(L) 0.80 - 1.50 mg/dL [facility] Sodium 137 135 - 145 mmol/L [facility] Potassium 3.6 3.5 - 5.0 mmol/L [facility] Comment: Please note: ??Patients with WBC >100,000 may have falsely elevated Potassium levels. ??For accurate Potassium quantification in these patients send serum separator tube (gold top) for subsequent determinations. ??Contact the Clinical Chemistry Laboratory if there are any questions. Chloride 103 98 - 107 mmol/L [facility] Carbon Dioxide 24 22 - 31 mmol/L [facility] Anion Gap 10 5 - 15 mmol/L [facility] Calcium 8.7 8.5 - 10.5 mg/dL [facility] Est Glomerular Filtration Rate 97 >=60 mL/min/1. 73 m?? [facility] Comment: This [...] Summers MD CHEMISTRY ORDERABLES Performing Organization Address [facility] Co de Phone Number [facility] [place] [address] * Heparin (unfractionated) Level (05/20/2022 5:02 AM EDT) UF Heparin 0.57 IU/mL [facility] Comment: Heparin (anti-Xa) levels [...] MD HEMATOLOGY ORDERABLE S Performing Organization Address City/[facility]/ZIP Co de Phone Number [facility] [place] [address] * (ABNORMAL) Differential, Automated (05/20/2022 5:02 AM EDT) [facility] Neutrophil % 58.1 % [facility] Neutrophil Absolute 4.52 1.70 - 6.10 x10(3)/ L [facility] Lymph % 24.1 % [facility] Lymphocytes Abs 1.9 0.9 - 3.2 x10(3)/ L [facility] Monocyte % 13.8 % [facility] Monocyte Abs 1.1(H) 0.3 - 0.9 x10(3)/[facility] Eos % 2.6 % [facility] Eosinophils Abs 0.2 0.0 - 0.4 x10(3)/[facility] Basophil % 0.8 % [facility] Baso Absolute 0.1 0.0 - 0.1 x10(3)/[facility] Immature Gran % 0.60 % [facility] Comment: Immature granulocytes(IG's)percentage and absolute count will include metamyelocytes, myelocytes, and promyelocytes. Blood smears from CBCs yielding IG's will be scanned manually for concordance. If this scan disagrees with the automated IG or if promyelocytes are noted, a manual differential will be performed. Immature Gran Absolute 0.05(H) 0.00 - 0.04 x10(3)/ L [facility] Blood 05/20/2022 5:02 AM EDT 05/20/2022 5:19 AM EDT Narrative Resulting Agency Comment Spec In Lab Edward Rodríguez MD HEMATOLOGY ORDER NICK [facility] [place] [address] * (ABNORMAL) Hemogram (05/20/2022 5:02 AM EDT) [facility] White Blood Cell 7.8 4.0 - 9.5 x10(3)/mc L [facility] Red Blood Cell 3.53(L) 4.58 - 5.54 x10(6)/mc L [facility] Hemoglobin 11.4(L) 13.7 - 16.5 g/dL [facility] Hematocrit 34.3(L) 40.5 - 48.5 % [facility] Mean Cell Volume 97.2(H) 82.9 - 93.1 fL [facility] Mean Cell Hemoglobin 32.3(H) 27.5 - 32.1 pg [facility] Mean Cell Hemoglobin Concentration 33.2 32.0 - 35.7 g/dL [facility] Platelet 181 145 - 357 x10(3)/[facility] RDW Standard Deviation 46.4(H) 36.0 - 45.0 [facility] RDW coefficient of variation 13.0 11.4 - 13.8 % [facility] Mean Platelet Volume 10.4 7.6 - 12.9 fL [facility] NRBC% auto 0.0 % [facility] NRBC Absolute 0.000 0.000 - 0.000 x10(3)/[facility] Blood 05/20/2022 5:02 AM EDT 05/20/2022 5:19 AM EDT Narrative Resulting Agency Comment Spec In Lab Edward Rodríguez MD HEMATOLOGY ORDER NICK [facility] [place] [address] * Heparin (unfractionated) Level (05/19/2022 3:26 AM EDT) Pathologist [facility] UF Heparin 0.59 IU/mL [facility] Comment: Heparin (anti-Xa) levels [...] Lab Fito Summers MD HEMATOLOGY ORDERABLE S [facility] [place] [address] * (ABNORMAL) Differential, Automated (05/19/2022 3:26 AM EDT) Neutrophil % 62.1 % [facility] Neutrophil Absolute 4.59 1.70 - 6.10 x10(3)/mc L [facility] Lymph % 22.1 % [facility] Lymphocytes Abs 1.6 0.9 - 3.2 x10(3)/mc L [facility] Monocyte % 13.5 % [facility] Monocyte Abs 1.0(H) 0.3 - 0.9 x10(3)/mc L [facility] Eos % 1.3 % [facility] Eosinophils Abs 0.1 0.0 - 0.4 x10(3)/mc L [facility] Basophil % 0.5 % [facility] Baso Absolute 0.0 0.0 - 0.1 x10(3)/mc L [facility] Immature Gran % 0.50 % [facility] Comment: Immature granulocytes(IG's)percentage and absolute count will include metamyelocytes, myelocytes, and promyelocytes. Blood smears from CBCs yielding IG's will be scanned manually for concordance. If this scan disagrees with the automated IG or if promyelocytes are noted, a manual differential will be performed. Immature Gran Absolute 0.04 0.00 - 0.04 x10(3)/ L [facility] Blood 05/19/2022 3:26 AM EDT 05/19/2022 3:59 AM EDT Narrative Resulting Agency Comment Spec In Lab Edward Rodríguez MD HEMATOLOGY ORDER NICK [facility] [place] [address] * (ABNORMAL) Hemogram (05/19/2022 3:26 AM EDT) White Blood Cell 7.4 4.0 - 9.5 x10(3)/[facility] Red Blood Cell 3.74(L) 4.58 - 5.54 x10(6)/ L [facility] Hemoglobin 12.1(L) 13.7 - 16.5 g/dL [facility] Hematocrit 36.4(L) 40.5 - 48.5 % [facility] Mean Cell Volume 97.3(H) 82.9 - 93.1 fL [facility] Mean Cell Hemoglobin 32.4(H) 27.5 - 32.1 pg [facility] Mean Cell Hemoglobin Concentration 33.2 32.0 - 35.7 g/dL [facility] Platelet 168 145 - 357 x10(3)/ L [facility] RDW Standard Deviation 46.9(H) 36.0 - 45.0 fL [facility] RDW coefficient of variation 13.0 11.4 - 13.8 % [facility] Mean Platelet Volume 10.5 7.6 - 12.9 [facility] NRBC% auto 0.0 % [facility] NRBC Absolute 0.000 0.000 - 0.000 x10(3)/mc L [facility] Blood 05/19/2022 3:26 AM EDT 05/19/2022 3:59 AM EDT Narrative Resulting Agency Comment Spec In Lab Edward Rodríguez MD HEMATOLOGY ORDER NICK Performing Organization Address [facility] Co de Phone Number [facility] [place] [address] * TSH (05/18/2022 8:00 PM EDT) Thyroid Stimulating Hormone 2.27 0.27 - 4.20 mcIU/mL [facility] Comment: Reference Interval (mcIU/mL): Females: ??First Trimester: 0.23-3.88 ??Second Trimester: 0.22-3.90 ??Third Trimester: 0.44-4.66 Blood 05/18/2022 8:00 PM EDT 05/18/2022 8:06 PM EDT Narrative Resulting Agency Comment Spec In Lab Fito Summers MD CHEMISTRY ORDERABLES Performing Organization Address [facility] Phone Number [facility] [place] [address] * (ABNORMAL) Differential, Automated (05/18/2022 3:34 AM EDT) Neutrophil % 67.2 % [facility] Neutrophil Absolute 5.89 1.70 - 6.10 x10(3)/mc L [facility] Lymph % 17.1 % [facility] Lymphocytes Abs 1.5 0.9 - 3.2 x10(3)/mc L [facility] Monocyte % 13.6 % [facility] Monocyte Abs 1.2(H) 0.3 - 0.9 x10(3)/mc L [facility] Eos % 1.0 % [facility] Eosinophils Abs 0.1 0.0 - 0.4 x10(3)/mc L [facility] Basophil % 0.6 % [facility] Baso Absolute 0.0 0.0 - 0.1 x10(3)/[facility] Immature Gran % 0.50 % [facility] Comment: Immature granulocytes(IG's)percentage and absolute count will include metamyelocytes, myelocytes, and promyelocytes. Blood smears from CBCs yielding IG's will be scanned manually for concordance. If this scan disagrees with the automated IG or if promyelocytes are noted, a manual differential will be performed. Immature Gran Absolute 0.04 0.00 - 0.04 x10(3)/[facility] Blood 05/18/2022 3:34 AM EDT 05/18/2022 3:48 AM EDT Narrative Resulting Agency Comment Spec In Lab Edward Rodríguez MD HEMATOLOGY ORDER NICK [facility] [place] [address] * (ABNORMAL) Hemogram (05/18/2022 3:34 AM EDT) White Blood Cell 8.8 4.0 - 9.5 x10(3)/[facility] Red Blood Cell 3.45(L) 4.58 - 5.54 x10(6)/[facility] Hemoglobin 11.2(L) 13.7 - 16.5 g/dL [facility] Hematocrit 33.0(L) 40.5 - 48.5 % [facility] Mean Cell Volume 95.7(H) 82.9 - 93.1 fL [facility] Mean Cell Hemoglobin 32.5(H) 27.5 - 32.1 pg [facility] Mean Cell Hemoglobin Concentration 33.9 32.0 - 35.7 g/dL [facility] Platelet 130(L) 145 - 357 x10(3)/[facility] RDW Standard Deviation 46.2(H) 36.0 - 45.0 fL [facility] RDW coefficient of variation 13.2 11.4 - 13.8 % [facility] Mean Platelet Volume 10.8 7.6 - 12.9 [facility] NRBC% auto 0.0 % [facility] NRBC Absolute 0.000 0.000 - 0.000 x10(3)/mc L [facility] Blood 05/18/2022 3:34 AM EDT 05/18/2022 3:48 AM EDT Narrative Resulting Agency Comment Spec In Lab Edward Rodríguez MD HEMATOLOGY ORDER NICK Performing Organization Address [facility]/ZIP [place] [address] * Heparin (unfractionated) Level (05/18/2022 3:34 AM EDT) UF Heparin 0.59 IU/mL [facility] Comment: Heparin (anti-Xa) levels [...] MD HEMATOLOGY ORDERABLE S Performing Organization Address City/[facility]/ZIP Co de Phone Number [facility] [place] [address] * Magnesium (05/17/2022 3:33 AM EDT) Magnesium 0.76 0.69 - 1.07 mmol/L [facility] Blood Venous Draw / Unknown 05/17/2022 3:33 AM EDT 05/17/2022 4:05 AM EDT Narrative Resulting Agency Comment Spec In Lab Dottie Hill APRN CHEMISTRY ORDERABL ES [facility] [address] [place] [address] * (ABNORMAL) Basic Metabolic Panel (non-fasting) (05/17/2022 3:33 AM EDT) Glucose 158 65 - 199 mg/dL [facility] Comment:Diabetes: >=200 mg/d L plus symptoms Blood Urea Nitrogen 12 10 - 20 mg/dL [facility] Creatinine 0.74(L) 0.80 - 1.50 mg/dL [facility] Sodium 137 135 - 145 mmol/L [facility] Potassium 3.5 3.5 - 5.0 mmol/L [facility] Comment: Please note: ??Patients with WBC >100,000 may have falsely elevated Potassium levels. ??For accurate Potassium quantification in these patients send serum separator tube (gold top) for subsequent determinations. ??Contact the Clinical Chemistry Laboratory if there are any questions. Chloride 102 98 - 107 mmol/L [facility] Carbon Dioxide 25 22 - 31 mmol/L [facility] Anion Gap 10 5 - 15 mmol/L [facility] Calcium 8.4(L) 8.5 - 10.5 mg/dL [facility] Est Glomerular Filtration Rate 92 >=60 mL/min/1. 73 m?? [facility] Comment: This [...] In Lab Fito Summers MD CHEMISTRY ORDERABLES [facility] [place] [address] * (ABNORMAL) Differential, Automated (05/17/2022 3:33 AM EDT) Neutrophil % 65.5 % [facility] Neutrophil Absolute 6.84(H) 1.70 - 6.10 x10(3)/mc L [facility] Lymph % 19.7 % [facility] Lymphocytes Abs 2.1 0.9 - 3.2 x10(3)/mc L [facility] Monocyte % 13.1 % [facility] Monocyte Abs 1.4(H) 0.3 - 0.9 x10(3)/mc L [facility] Eos % 0.6 % [facility] Eosinophils Abs 0.1 0.0 - 0.4 x10(3)/mc L [facility] Basophil % 0.6 % [facility] Baso Absolute 0.1 0.0 - 0.1 x10(3)/mc L [facility] Immature Gran % 0.50 % [facility] Comment: Immature granulocytes(IG's)percentage and absolute count will include metamyelocytes, myelocytes, and promyelocytes. Blood smears from CBCs yielding IG's will be scanned manually for concordance. If this scan disagrees with the automated IG or if promyelocytes are noted, a manual differential will be performed. Immature Gran Absolute 0.05(H) 0.00 - 0.04 x10(3)/ L [facility] Blood 05/17/2022 3:33 AM EDT 05/17/2022 3:53 AM EDT Narrative Resulting Agency Comment Spec In Lab Edward Rodríguez MD HEMATOLOGY ORDER NICK [facility] [place] [address] * (ABNORMAL) Hemogram (05/17/2022 3:33 AM EDT) White Blood Cell 10.4(H) 4.0 - 9.5 x10(3)/ L [facility] Red Blood Cell 3.72(L) 4.58 - 5.54 x10(6)/[facility] Hemoglobin 12.0(L) 13.7 - 16.5 g/dL [facility] Hematocrit 36.4(L) 40.5 - 48.5 % [facility] Mean Cell Volume 97.8(H) 82.9 - 93.1 fL [facility] Mean Cell Hemoglobin 32.3(H) 27.5 - 32.1 pg [facility] Mean Cell Hemoglobin Concentration 33.0 32.0 - 35.7 g/dL [facility] Platelet 149 145 - 357 x10(3)/[facility] RDW Standard Deviation 48.7(H) 36.0 - 45.0 fL [facility] RDW coefficient of variation 13.5 11.4 - 13.8 % [facility] Mean Platelet Volume 10.6 7.6 - 12.9 fL [facility] NRBC% auto 0.0 % [facility] NRBC Absolute 0.000 0.000 - 0.000 x10(3)/ L [facility] Blood 05/17/2022 3:33 AM EDT 05/17/2022 3:53 AM EDT Narrative Resulting Agency Comment Spec In Lab Edward Rodríguez MD HEMATOLOGY ORDER NICK Performing Organization Address [facility]/ZIP Co de Phone Number [facility] [place] [address] * (ABNORMAL) Urinalysis Microscopic Exam (05/16/2022 11:15 PM EDT) RBC, Urine 8(H) 0 - 3 /HPF [facility] WBC, Urine 2 0 - 3 /HPF [facility] Clean Catch Urine 05/16/2022 11:15 PM EDT 05/16/2022 11:30 PM EDT Narrative Resulting Agency Comment Spec In Lab Barbie Ashraf MD URINE ORDERABLES Performing Organization Address [facility] Co de Phone Number [facility] [place] [address] * (ABNORMAL) Urinalysis with reflex Culture (05/16/2022 11:15 PM EDT) Glucose, Urine Dipstick Negative Negative mg/dL [facility] Protein, Urine Dipstick Negative Negative mg/dL [facility] Bilirubin, Urine Dipstick Negative Negative mg/dL [facility] Comment: Clinical correlation required for positive Urine Bilirubin results as false positive may occur with some drugs and drug related products. If a false positive is suspected a serum total bilirubin should be considered if clinically indicated. Urobilinogen, Urine Dipstick Normal Normal mg/dL [facility] pH, Urn (dipstick) 6.0 5.0 - 8.0 [facility] Blood, Urine Dipstick Small(A) Negative mg/dL [facility] Ketone, Urine Dipstick Trace(A) Negative mg/dL [facility] Nitrite, Urine Dipstick Negative Negative [facility] Leukocytes, Urine Dipstick Negative Negative [facility] Appearance, Urine Dipstick Clear Clear [facility] Specific [place] Urine Automated 1.021 1.005 - 1.030 [facility] LABORATORY Color, Urine Dipstick Yellow Yellow [facility] Reflex to Culture No [facility] Clean Catch Urine 05/16/2022 11:15 PM EDT 05/16/2022 11:30 PM EDT Narrative Resulting Agency Comment Spec In Lab Fito Summers MD URINE ORDERABLES Performing Organization Address [facility] Co de Phone Number [facility] [place] [address] * Heparin (unfractionated) Level (05/16/2022 10:59 PM EDT) UF Heparin 0.65 IU/mL [facility] Comment: Specimen drawn more [...] MD HEMATOLOGY ORDERABLE S Performing Organization Address City/[facility]/ZIP Co de Phone Number [facility] [place] [address] * XR Chest One View (05/16/2022 9:14 [...] who have questions please contact the health auto care center manager that requested your imaging first. ? Electronically signed by: Tiffanie George MD, [facility] ([phone]), at 05/16/2022 9:27 PM Narrative 05/16/2022 9:27 [...] patients who have questions please contactthe health auto care center manager that requested your imaging first. Electronically signed by: Tiffanie George MD, [facility]([phone]), at 05/16/2022 9:27 PM Fito Summers MD IMG DX ORDERABLES * EKG 12 Lead (05/16/2022 8:57 PM EDT) Ventricular rate 117 BPM MUSE SYSTEM QRS Duration 112 ms MUSE SYSTEM Q-T Interval 346 ms MUSE SYSTEM QTC Calculated (Bezet) 482 ms MUSE SYSTEM Calculated R [place] -48 degrees MUSE SYSTEM Calculated T [place] 111 degrees MUSE SYSTEM INTERPRETATION Atrial fibrillation with rapid ventricular response Left anterior fascicular block Minimal voltage criteria for LVH, may be normal variant ( [place] product ) Nonspecific ST and T wave [...] 4:34 PM EDT) UF Heparin 0.53 IU/mL [facility] Comment: Heparin (anti-Xa) levels [...] MD HEMATOLOGY ORDERABLE S Performing Organization Address [facility]/State/ZIP Co de Phone Number [facility] [place] [address] * ECHO COMPLETE W CONTRAST (05/16/2022 12:49 PM EDT) EF 28 HEARTLAB SYSTEM Anatomical Region Laterality Modality Cardiac Other 05/16/2022 11:2 2 AM EDT Narrative 05/16/2022 1:54 PM EDT ?[facility] ? Medical Center ?[address] ? [place], [place] [address] ?Voice: ?Fax: ? Echocardiogram Report Name: KOKO ZAMORA Laurie ?Study Date: 05/16/2022 11:22 AM ? Patient Location: [facility] 0303 : 1940 ? Height: 67.5 in ? Account: [id number] Age: 81 yrs ? Weight: 176 lb Gender: Male ?BSA: 1.9 m2 Ordering Physician: FITO SUMMERS Referring Physician: MAIK FLORIAN Performed By: Jolene Bernard RDCS Exam Location: [facility]. Interpretation Summary Left ventricle is [...] and LV systolic dysfunction are new. Procedure Complete-[id number]. Image enhancement Optison was used for both [...] Procedure Note Gladys Jaime MD - 05/16/2022 [facility] [place] [place] [address] Voice: Fax: Echocardiogram Report Name: ZAMORAKOKO Study Date: 1:22 AM Patient Location: [id number] : 1940 Height: 67.5 in Account: [id number] Age: 81 yrs Weight: 176 lb Gender: Male BSA: 1.9 m2 Ordering Physician: FITO SUMMERS Referring Physician: MAIK FLORIAN Performed By: Jolene Bernard RDCS Exam Location: [facility]. Interpretation Summary Left ventricle is [...] moderate and LV systolicdysfunction are new. Procedure Complete-[id number]. Image enhancement Optison was used for both [...] 3:01 AM EDT) Neutrophil % 78.8 % [facility] Neutrophil Absolute 9.11(H) 1.70 - 6.10 x10(3)/mc L [facility] Lymph % 9.4 % [facility] Lymphocytes Abs 1.1 0.9 - 3.2 x10(3)/ L [facility] Monocyte % 10.9 % [facility] Monocyte Abs 1.3(H) 0.3 - 0.9 x10(3)/[facility] Eos % 0.0 % [facility] Eosinophils Abs 0.0 0.0 - 0.4 x10(3)/[facility]OR[facility] Basophil % 0.3 % [facility] Baso Absolute 0.0 0.0 - 0.1 x10(3)/[facility]OR[facility]ORY Immature Gran % 0.60 % [facility] Comment: Immature granulocytes(IG's)percentage and absolute count will include metamyelocytes, myelocytes, and promyelocytes. Blood smears from CBCs yielding IG's will be scanned manually for concordance. If this scan disagrees with the automated IG or if promyelocytes are noted, a manual differential will be performed. Immature Gran Absolute 0.07(H) 0.00 - 0.04 x10(3)/[facility] Blood 05/16/2022 3:01 AM EDT 05/16/2022 3:36 AM EDT Narrative Resulting Agency Comment Spec In Lab Erin Garza MD HEMATOLOGY ORDERABLE S [facility] [place] [address] * (ABNORMAL) Hemogram (05/16/2022 3:01 AM EDT) White Blood Cell 11.6(H) 4.0 - 9.5 x10(3)/[facility] Red Blood Cell 3.62(L) 4.58 - 5.54 x10(6)/ L [facility] Hemoglobin 12.0(L) 13.7 - 16.5 g/dL [facility] Hematocrit 35.3(L) 40.5 - 48.5 % [facility] Mean Cell Volume 97.5(H) 82.9 - 93.1 fL [facility] Mean Cell Hemoglobin 33.1(H) 27.5 - 32.1 pg [facility] Mean Cell Hemoglobin Concentration 34.0 32.0 - 35.7 g/dL [facility] Platelet 151 145 - 357 x10(3)/mc L [facility] RDW Standard Deviation 47.6(H) 36.0 - 45.0 fL [facility] RDW coefficient of variation 13.3 11.4 - 13.8 % [facility] Mean Platelet Volume 10.5 7.6 - 12.9 fL [facility] NRBC% auto 0.0 % [facility] NRBC Absolute 0.000 0.000 - 0.000 x10(3)/mc L [facility] Blood 05/16/2022 3:01 AM EDT 05/16/2022 3:36 AM EDT Narrative Resulting Agency Comment Spec In Lab Erin Garza MD HEMATOLOGY ORDERABLE S Performing Organization Address City/[facility]/ZIP Co de Phone Number [facility] [place] [address] * Phosphorus (05/16/2022 3:01 AM EDT) Phosphorus 3.7 2.5 - 4.5 mg/dL [facility] Blood 05/16/2022 3:01 AM EDT 05/16/2022 3:36 AM EDT Narrative Resulting Agency Comment Spec In Lab Fito Summers MD CHEMISTRY ORDERABLES Performing Organization Address City/[facility]/ZIP Co de Phone Number [facility] [place] [address] * Magnesium (05/16/2022 3:01 AM EDT) Magnesium 0.77 0.69 - 1.07 mmol/L [facility] Blood 05/16/2022 3:01 AM EDT 05/16/2022 3:36 AM EDT Narrative Resulting Agency Comment Spec In Lab Fito Summers MD CHEMISTRY ORDERABLES [facility] [place] [address] * (ABNORMAL) Basic Metabolic Panel (non-fasting) (05/16/2022 3:01 AM EDT) Glucose 222(H) 65 - 199 mg/dL [facility] Comment:Diabetes: >=200 mg/d L plus symptoms Blood Urea Nitrogen 12 10 - 20 mg/dL [facility] Creatinine 0.66(L) 0.80 - 1.50 mg/dL [facility] Sodium 138 135 - 145 mmol/L [facility] Potassium 4.5 3.5 - 5.0 mmol/L [facility] Comment: Please note: ??Patients with WBC >100,000 may have falsely elevated Potassium levels. ??For accurate Potassium quantification in these patients send serum separator tube (gold top) for subsequent determinations. ??Contact the Clinical Chemistry Laboratory if there are any questions. Chloride 108(H) 98 - 107 mmol/L [facility] Carbon Dioxide 22 22 - 31 mmol/L [facility] Anion Gap 8 5 - 15 mmol/L [facility] Calcium 8.2(L) 8.5 - 10.5 mg/dL [facility] Est Glomerular Filtration Rate 95 >=60 mL/min/1. 73 m?? [facility] Comment: This [...] In Lab Fito Summers MD CHEMISTRY ORDERABLES [facility] [place] [address] * (ABNORMAL) BLOOD GAS 2 ARTERIAL (05/15/2022 3:33 PM EDT) pH, Arterial 7.33(L) 7.35 - 7.45 [facility] PCO2, Arterial 41 35 - 45 mmHg [facility] PO2, Arterial 131(H) 85 - 104 mmHg [facility] Bicarbonate, Arterial 21.1 20.0 - 26.0 mmol/L [facility] Base Excess, Arterial -4.8(L) -3.0 - 3.0 mmol/L [facility] Hgb Blood Gas 13.4(L) 13.7 - 16.5 g/dL [facility] Oxyhemoglobin, Arterial 96.9 94.0 - 97.0 % [facility] Carboxyhemoglob in, Arterial 1.4 % [facility] Comment: Nonsmokers: 0.5-1.5% COHB Smokers: Variable, but usually less than 10% Toxic: 20-30% COHB Lethal: Greater than 60% COHB Methemoglobin, Arterial 0.3 <=1.5 % [facility] Na Whole Blood 139 135 - 145 mmol/L [facility] K Whole Blood 3.8 3.5 - 5.0 mmol/L [facility] Comment: Please note: Patients with WBC >100,000 may have falsely elevated Potassium levels. Contact the Clinical Chemistry Laboratory if there are any questions. ICa Whole Blood 1.32 1.15 - 1.33 mmol/L [facility] Comment: Note: ??Total bilirubin higher than 20 mg/dL may lead to falsely low ionized calcium. CL Whole Blood 113(H) 98 - 107 mmol/L [facility] Gluc Whole Bld 136 65 - 199 mg/dL [facility] Comment:Diabetes: >=200 mg/d L plus symptoms. Lactate WB 2.0 0.5 - 2.2 mmol/L [facility] Blood 05/15/2022 3:33 PM EDT 05/15/2022 3:[address] Jamel Torre MD POINT OF CARE TEST O RDERABLES [facility] [place] [address] * (ABNORMAL) BLOOD GAS 2 ARTERIAL (05/15/2022 2:06 PM EDT) pH, Arterial 7.39 7.35 - 7.45 [facility] PCO2, Arterial 35 35 - 45 mmHg [facility] PO2, Arterial 135(H) 85 - 104 mmHg [facility] Bicarbonate, Arterial 20.8 20.0 - 26.0 mmol/L [facility] Base Excess, Arterial -4.2(L) -3.0 - 3.0 mmol/L [facility] Hgb Blood Gas 14.5 13.7 - 16.5 g/dL [facility] Oxyhemoglobin, Arterial 97.2(H) 94.0 - 97.0 % [facility] Carboxyhemoglob in, Arterial 1.2 % [facility] Comment: Nonsmokers: 0.5-1.5% COHB Smokers: Variable, but usually less than 10% Toxic: 20-30% COHB Lethal: Greater than 60% COHB Methemoglobin, Arterial 0.3 <=1.5 % [facility] Na Whole Blood 140 135 - 145 mmol/L [facility] K Whole Blood 3.8 3.5 - 5.0 mmol/L [facility] Comment: Please note: Patients with WBC >100,000 may have falsely elevated Potassium levels. Contact the Clinical Chemistry Laboratory if there are any questions. ICa Whole Blood 1.12(L) 1.15 - 1.33 mmol/L [facility] Comment: Note: ??Total bilirubin higher than 20 mg/dL may lead to falsely low ionized calcium. CL Whole Blood 109(H) 98 - 107 mmol/L [facility] Gluc Whole Bld 152 65 - 199 mg/dL [facility] Comment:Diabetes: >=200 mg/d L plus symptoms. Lactate WB 1.5 0.5 - 2.2 mmol/L [facility] Blood 05/15/2022 2:06 PM EDT 05/15/2022 2:[address] Jamel Torre MD POINT OF CARE TEST O RDERABLES Performing Organization Address [facility]/ZIP Co de Phone Number [facility] [place] [address] * (ABNORMAL) Prothrombin Time (05/15/2022 12:30 PM EDT) Prothrombin Time 12.9(H) 9.4 - 12.5 sec [facility] International Normalization Ratio 1.1 [facility] Comment: An [...] DO HEMATOLOGY ORDERABLE S Performing Organization Address [facility]/ZIP Co de Phone Number [facility] [place] [address] * (ABNORMAL) APTT (05/15/2022 12:30 PM EDT) Partial Thromboplastin Time 76(H) 25 - 37 sec [facility] [...] DO HEMATOLOGY ORDERABLE S Performing Organization Address City/[facility]/ZIP Co de Phone Number [facility] [place] [address] * Gold Tube HOLD (05/15/2022 12:20 PM EDT) [facility] Gold Hold Sample in lab. [facility] Blood No Charge / Unknown 05/15/2022 12:20 PM EDT 05/15/2022 12:20 PM EDT Lc TRIPP CHEMISTRY ORDERABLES Performing Organization Address [facility]/ZIP Co de Phone Number [facility] [place] [address] * Type and Screen Validity (05/15/2022 12:00 PM EDT) T&S only valid at [facility]ORY Comment:This Type and Screen result is only valid at the [facility] Blood 05/15/2022 12:0 0 PM EDT 05/15/2022 12:17 PM EDT Narrative Resulting Agency Comment Spec In Lab Lc TRIPP BLOOD BANK LAB ORDER NICK Performing Organization Address City/[facility]/ZIP Co de Phone Number [facility] [place] [address] * ABORH Recheck Status (05/15/2022 12:00 PM EDT) ABORH Recheck Order Order Placed [facility] ABORH Type Recheck Complete [facility] Blood 05/15/2022 12:0 0 PM EDT 05/15/2022 12:17 PM EDT Narrative Resulting Agency Comment Spec In Lab Lc TRIPP BLOOD BANK LAB ORDER NICK [facility] [place] [address] * CK (05/15/2022 12:00 PM EDT) Creatine Kinase 87 0 - 200 unit/L [facility] Blood Venous Draw / Unknown 05/15/2022 12:00 PM EDT 05/15/2022 12:19 PM EDT Narrative Resulting Agency Comment Spec In Lab Fito Summers MD CHEMISTRY ORDERABLES Performing Organization Address City/[facility]/ZIP Co de Phone Number [facility] [place] [address] * Antibody screen (05/15/2022 12:00 PM EDT) Ab Screen Interp Negative [facility] Expires at [id number] on: 05/18/2022 [facility] Blood 05/15/2022 12:0 0 PM EDT 05/15/2022 12:17 PM EDT Narrative Resulting Agency Comment Spec In Lab Lc TRIPP BLOOD BANK LAB ORDER NICK [facility] [place] [address] * ABO/Rh Typing (05/15/2022 12:00 PM EDT) ABORH Type O Pos [facility] Blood 05/15/2022 12:0 0 PM EDT 05/15/2022 12:17 PM EDT Narrative Resulting Agency Comment Spec In Lab Lc TRIPP BLOOD BANK LAB ORDER NICK [facility] [place] [address] * (ABNORMAL) Differential, Automated (05/15/2022 12:00 PM EDT) Neutrophil % 79.4 % [facility] Neutrophil Absolute 7.49(H) 1.70 - 6.10 x10(3)/[facility] Lymph % 11.3 % [facility] Lymphocytes Abs 1.1 0.9 - 3.2 x10(3)/[facility] Monocyte % 7.8 % [facility] Monocyte Abs 0.7 0.3 - 0.9 x10(3)/[facility] Eos % 0.6 % [facility] Eosinophils Abs 0.1 0.0 - 0.4 x10(3)/[facility] Basophil % 0.6 % [facility] Baso Absolute 0.1 0.0 - 0.1 x10(3)/[facility] Immature Gran % 0.30 % [facility] Comment: Immature granulocytes(IG's)percentage and absolute count will include metamyelocytes, myelocytes, and promyelocytes. Blood smears from CBCs yielding IG's will be scanned manually for concordance. If this scan disagrees with the automated IG or if promyelocytes are noted, a manual differential will be performed. Immature Gran Absolute 0.03 0.00 - 0.04 x10(3)/ L [facility] Blood 05/15/2022 12:0 0 PM EDT 05/15/2022 12:19 PM EDT Narrative Resulting Agency Comment Spec In Lab Lc TRIPP HEMATOLOGY ORDERABLE S [facility] [place] [address] * (ABNORMAL) Hemogram (05/15/2022 12:00 PM EDT) White Blood Cell 9.4 4.0 - 9.5 x10(3)/mc L [facility] Red Blood Cell 4.48(L) 4.58 - 5.54 x10(6)/mc L [facility] Hemoglobin 14.5 13.7 - 16.5 g/dL [facility] Hematocrit 42.4 40.5 - 48.5 % [facility] Mean Cell Volume 94.6(H) 82.9 - 93.1 fL [facility] Mean Cell Hemoglobin 32.4(H) 27.5 - 32.1 pg [facility] Mean Cell Hemoglobin Concentration 34.2 32.0 - 35.7 g/dL [facility] Platelet 209 145 - 357 x10(3)/mc L [facility] RDW Standard Deviation 45.9(H) 36.0 - 45.0 [facility] RDW coefficient of variation 13.1 11.4 - 13.8 % [facility] Mean Platelet Volume 10.5 7.6 - 12.9 [facility] NRBC% auto 0.0 % [facility] NRBC Absolute 0.000 0.000 - 0.000 x10(3)/mc L [facility] Blood 05/15/2022 12:0 0 PM EDT 05/15/2022 12:19 PM EDT Narrative Resulting Agency Comment Spec In Lab Lc TRIPP HEMATOLOGY ORDERABLE S [facility] [place] [address] * (ABNORMAL) Basic Metabolic Panel (non-fasting) (05/15/2022 12:00 PM EDT) Glucose 203(H) 65 - 199 mg/dL [facility] Comment:Diabetes: >=200 mg/d L plus symptoms Blood Urea Nitrogen 16 10 - 20 mg/dL [facility] Creatinine 0.84 0.80 - 1.50 mg/dL [facility] Sodium 141 135 - 145 mmol/L [facility] Potassium 4.7 3.5 - 5.0 mmol/L [facility] Comment: Please note: ??Patients with WBC >100,000 may have falsely elevated Potassium levels. ??For accurate Potassium quantification in these patients send serum separator tube (gold top) for subsequent determinations. ??Contact the Clinical Chemistry Laboratory if there are any questions. Chloride 107 98 - 107 mmol/L [facility] Carbon Dioxide 23 22 - 31 mmol/L [facility] Anion Gap 11 5 - 15 mmol/L [facility] Calcium 8.5 8.5 - 10.5 mg/dL [facility] Est Glomerular Filtration Rate 89 >=60 mL/min/1. 73 m?? [facility] Comment: This [...] In Lab Jhonny Morales DO CHEMISTRY ORDERABLES [facility] [place] [address] documented in this encounter Visit Diagnoses Not [...] 05/20/2022 7:04 PM EDT 10 mLs aspirin chewable tablet ONCE PRN, Starting on Fri05/20/22 at 1746, Until Fri05/20/22 at 1842, Intra-Operative (Intra-Procedure), Routine Given 05/20/2022 5:46 PM EDT 324 mg aspirin EC tablet 81 mg 81 mg, [...] 05/21/2022 8:16 AM EDT 7 5 mg clopidogreL (Plavix) tablet ONCE PRN, Starting on Fri05/20/22 at 1746, Until Fri05/20/22 at 1842, Intra-Operative (Intra-Procedure), Routine Given 05/20/2022 5:46 PM EDT 600 mg fentaNYL (pf) (50 mcg/mL) multi-dose injection ONCE PRN, Starting on Fri05/20/22 at 1714, Until Fri05/20/22 at 1842, Intra-Operative (Intra-Procedure), Routine Given 05/20/2022 5:14 PM EDT 25 mcg folic acid (Folvite) tablet 1,000 mcg 1,000 mcg, Oral, DAILY, First dose on Brandi 05/16/22 at 0900, Until Discontinued, Routine Given 05/21/2022 8:15 AM EDT 1,000 mcg Given 05/20/2022 8:52 AM EDT 1,000 mcg Given 05/19/2022 8:38 AM EDT 1,000 mcg heparin (porcine) (1,000 units/mL) injection ONCE PRN, Starting on Fri05/20/22 at 1726, Until Fri05/20/22 at 1842, Cath (Intra-Procedure), Routine Given 05/20/2022 5:46 PM EDT 2,500 Units Given 05/20/2022 5:26 PM EDT 2,000 Units iohexoL (Omnipaque) (350 mg/mL) solution ONCE PRN, Starting on Fri05/20/22 at 1841, Until Fri05/20/22 at 1842, Cath (Intra-Procedure), Routine Given 05/20/2022 6:41 PM EDT 189 mLs ipratropium-albuteroL (Duoneb) 0.5 mg-3 mg(2.5 mg base)/3 mL nebulizer solution 3 mL 3 mL, Nebulization, 4 TIMES DAILY PRN, Starting on Fri05/15/22 at 1717, Until Fri05/21/22 at 1743, Wheezing, Routine Given 05/15/2022 5:19 PM EDT 3 mLs metoprolol (LOPRESSOR) injection 5 mg 5 mg, [...] Given 05/21/2022 11:36 AM EDT 12.5 mg midazolam (pf) (Versed) (1 mg/mL) multi-dose injection ONCE PRN, Starting on Fri05/20/22 at 1714, Until Fri05/20/22 at 1842, Cath (Intra-Procedure), Routine Given 05/20/2022 5:14 PM EDT 1 mg multivitamin with minerals (Thera M) tablet [...] 17 g rivaroxaban (Xarelto) tablet 20 mg 20 mg, [...] dose on 05/18/22 at 2100, Until Discontinued Given 05/21/2022 8:16 AM EDT 40 mg Given 05/20/2022 8:06 PM EDT 40 mg Given 05/20/2022 8:53 AM EDT 40 mg documented in this encounter Active and Recently Administered Medications Times are shown in EDT. Scheduled Medication Order 05/19/2022 05/20/2022 05/21/2022 aspirin EC tablet 81 mg 81 mg, Oral, DAILY, First dose on 05/21/22 at 0900, Until Discontinued, Recovery (Recovery-Hospital Unit), Routine 0816 (Given - Provider: Etta Don RN) clopidogreL (Plavix) tablet 75 mg 75 mg, Oral, DAILY, First dose on 05/21/22 at 0900, Until Discontinued, Recovery (Recovery-Hospital Unit), Routine 0816 (Given - Provider: Etta Don RN) folic acid (Folvite) tablet 1,000 mcg 1,000 mcg, Oral, DAILY, First dose on Brandi 05/16/22 at 0900, Until Discontinued, Routine 0838 (Given - Provider: Caroline Zamora RN) 0852 (Given - Provider: Barbie Joyce RN)175 (JAN Hold - Provider: Admin Adt - Reason: Transfer to a Procedural area)1955 (JAN Unhold - Provider: Admin Adt) 0815 (Given - Provider: Etta Don RN) metoprolol tartrate (Lopressor) tablet 12.5 mg (CANCELED) 12.5 mg, Oral, EVERY 12 HOURS SCHEDULED (2 times per day), First dose on Fri05/18/22 at 2100, Until Discontinued, Routine 0838 (Given - Provider: Caroline Zamora RN)2008 (Given - Provider: Nuris Lester, DION) 0853 (Given - Provider: Barbie Joyce, RN)1750 ([facility] Hold - Provider: Admin Adt - Reason: Transfer to a Procedural area)1955 ([facility] Unhold - Provider: Admin Adt)2004 (Given - Provider: Tere Blankenship, DION) 816 (Given - Provider: Etta Don, RN) metoprolol tartrate (Lopressor) tablet 12.5 mg 12.5 mg, Oral, EVERY 6 HOURS SCHEDULED, First dose (after last modification) on Fri05/21/22 at 1200, Until Discontinued, Routine 1136 (Given - Provider: Etta Don, RN) multivitamin with minerals (Thera M) tablet 1 tablet 1 tablet, Oral, DAILY, First dose on Fri05/16/22 at 0900, Until Discontinued, Routine 0838 (Given - Provider: Caroline Zamora RN) 0852 (Given - Provider: Barbie Joyce, DION)1750 ([facility] Hold - Provider: Admin Adt - Reason: Transfer to a Procedural area)1955 ([facility] Unhold - Provider: Admin Adt) 08 (Given - Provider: Etta Don, RN) pantoprazole EC (Protonix) tablet 40 mg 40 mg, Oral, DAILY, First dose on Fri05/22/22 at 0900, Until Discontinued, DO NOT CRUSH OR OPEN polyethylene glycoL (Miralax) packet 17 g 17 g, Oral, 2 TIMES DAILY, First dose on Fri05/16/22 at 2100, Until Discontinued, Routine 0838 (Given - Provider: Caroline Zamora RN)2099 (Not Given - Provider: Nuris Lester RN - Reason: Patient/family refused) 0900 (Not Given - Provider: Barbie Joyce, DION - Reason: NPO)1750 ([facility] Hold - Provider: Admin Adt - Reason: Transfer to a Procedural area)1955 ([facility] Unhold - Provider: Admin Adt)2131 (Given - Provider: Tere Blankenship RN) 0815 (Given - Provider: Etta Don, DION) rivaroxaban (Xarelto) tablet 20 mg 20 mg, Oral, DAILY, First dose on Fri05/21/22 at 1415, Until Discontinued, Take with food, Routine, Restricted anticoagulant, choose the most appropriate response: Continuation of ongoing therapy 1408 (Given - Provider: Etta Don, DION) rosuvastatin (Crestor) tablet 40 mg 40 mg, Oral, EVERY EVENING, First dose on Fri05/16/22 at 0900, Until Discontinued, Routine 0838 (Given - Provider: Caroline Zamora RN) 0853 (Given - Provider: Barbie Joyce, DION)1750 (JAN Hold - Provider: Admin Adt - Reason: Transfer to a Procedural area)1955 (JAN Unhold - Provider: Admin Adt) 0816 (Given - Provider: Etta Don RN) sodium chloride 0.9 % (flush) (BD PosiFlush Normal Saline 0.9) flush 5 mL 5 mL, Intravenous, 2 TIMES DAILY, First dose on Fri05/15/22 at 2245, Until Discontinued, Recovery (Recovery-Hospital Unit), Routine 0900 (Not Given - Provider: Caroline Zamora RN - Reason: Contraindicated)2009 (Given - Provider: Nuris Lester RN) 0900 (Not Given - Provider: Barbie Joyce RN - Reason: See comment - Comment: PIV infusing)2100 (Not Given - Provider: Tere Blankenship RN - Reason: Order parameters not met - Comment: infusing) 0819 (Given - Provider: Etta Don RN) tamsulosin (Flomax) capsule 0.4 mg 0.4 mg, Oral, DAILY, First dose on Fri05/16/22 at 0900, Until Discontinued, DO NOT CRUSH OR OPEN, Routine 0838 (Given - Provider: Caroline Zamora RN) 0853 (Given - Provider: Barbie Joyce RN)1750 (JAN Hold - Provider: Admin Adt - Reason: Transfer to a Procedural area)1955 (MAR Unhold - Provider: Admin Adt) 0817 (Given - Provider: Etta Don RN) thiamine (Vitamin B1) tablet 100 mg 100 mg, Oral, DAILY, First dose on Brandi 05/16/22 at 0900, Until Discontinued, Routine 0838 (Given - Provider: Caroline Zamora RN) 0853 (Given - Provider: Barbie Joyce, RN)1750 (JAN Hold - Provider: Admin Adt - Reason: Transfer to a Procedural area)1955 (JAN Unhold - Provider: Admin Adt) 0816 (Given - Provider: Etta Don, DION) valsartan (Diovan) tablet 40 mg 40 mg, Oral, 2 TIMES DAILY, First dose on 05/18/22 at 2100, Until Discontinued 0838 (Given - Provider: Caroline Zamora RN)2008 (Given - Provider: Nuris Lester RN) 0853 (Given - Provider: Barbie Joyce, DION)1750 (JAN Hold [...] Heparin UFH Level - Per Protocol, Routine 1936 (New Bag - Provider: Nuris Lester RN) 1600 (New Bag - Provider: Barbie Joyce RN)1751 (MAR Hold - Provider: Admin Adt - Reason: Transfer to a Procedural area)1956 (MAR Unhold - Provider: Admin Adt)2000 (Not Given - Provider: Tere Blankenship RN - Reason: Contraindicated - Comment: TR band in place) 0219 (Restarted - Provider: Tere Blankenship RN [...] pain medications are indicated. , Routine 1750 (JAN Hold - Provider: Admin Adt - Reason: Transfer to a Procedural area)1955 ([facility] Unhold - Provider: Admin Adt) alum-mag hydroxide-simeth [...] 1604, Until Fri05/21/22 at 1743, Constipation, Routine 1750 (JAN Hold - Provider: Admin Adt - Reason: Transfer to a Procedural area)1955 ([facility] Unhold - Provider: Admin Adt) clopidogreL (Plavix) tablet (CANCELED) ONCE PRN, Starting on Fri05/20/22 at 1746, Until Fri05/20/22 at 1842, Intra-Operative (Intra-Procedure), Routine 174 (Given - Provider: Flavia Schuler RN) fentaNYL (pf) (50 mcg/mL) multi-dose injection (CANCELED) [...] 0.2 international unit/mL: No Bolus, Routine 1750 (JAN Hold - Provider: Admin Adt - Reason: Transfer to a Procedural area)1955 (JAN Unhold - Provider: Admin Adt) heparin (porcine) (1,000 units/mL) injection (CANCELED) ONCE PRN, Starting on Fri05/20/22 at 1726, Until Fri05/20/22 at 1842, Cath (Intra-Procedure), Routine 1725 (Given - Provider: Flavia Schuler, RN)1745 (Given - Provider: Negra Baiely, DION) iohexoL (Omnipaque) (350 mg/mL) solution (CANCELED) ONCE PRN, Starting on Fri05/20/22 at 1841, Until Fri05/20/22 at 1842, Cath (Intra-Procedure), Routine 1840 (Given - Provider: Abundio Servin MD) ipratropium-albuteroL (Duoneb) 0.5 mg-3 mg(2.5 mg base)/3 mL nebulizer solution 3 mL 3 mL, Nebulization, 4 TIMES DAILY PRN, Starting on Fri05/15/22 at 1717, Until Fri05/21/22 at 1743, Wheezing, Routine 1750 (JAN Hold - Provider: Admin [...] area)1955 (JAN Unhold - Provider: Admin Adt) oxyCODONE (Roxicodone) tablet 5-10 mg(Linked Group 3) 5-10 mg, Oral, EVERY 4 HOURS PRN, Starting on Fri05/17/22 at 0655, Until Fri05/21/22 at 1743, Pain, moderate pain (4-6), Initial dose 5mg. If pain control not adequate in 60 minutes, give additional 5mg, Routine 175 (JAN Hold - Provider: Admin Adt - Reason: Transfer to a Procedural area)1955 (JAN Unhold - Provider: Admin Adt) sodium chloride [...] Intravenous, EVERY 8 HOURS PRN, Starting on 05/15/22 at 2147, Until Fri05/21/22 at 1743, Nausea, [...] Routine documented in this encounter Care Teams Retail Representative Relationship Specialty Start Date End Date Bobby Das MD [address] [place] [address] [place] [address] PCP - General 10/02/10 documented as of this encounter
--- OUTSIDE RECORDS SUMMARY | 2024-09-17 01:33 | XMS_ITS | Encounter Summary ---
[place] [address] Care Team Providers Care Administrative Asst Name Role Phone Bobby Das MD Primary Care Provider [phone] Reason for Referral * Consultation (Routine) - Closed Specialty Diagnoses / Procedures Referred By Contac t Referred To Contact Neurology Diagnoses Low back pain, non-specific Status post vertebroplasty Transient left leg weakness EMG Arpita Whitney APRN [facility] [place] [address] [facility] Neurology [address] [place] [phone] Referral ID Status Reason Start Date Expiration Date V isits Requested Visits Authorized [id number] Closed Consult, Test & Treat 04/17/2021 04/17/2022 1 1 * Physical Therapy (Routine) - Specialty Diagnoses / Procedures Referred By Contac t Referred To Contact Diagnoses Low back pain, non-specific Status post vertebroplasty Arpita Whitney APRN [facility] [place] [address] Referral ID Status Reason Start Date Expiration Date V isits Requested Visits Authorized [id number] Evaluate and Treat 04/17/2021 10/14/2021 12 12 Reason for Visit * Reason Comments Back Pain new patient visit * Consultation (Routine) - Closed Specialty Diagnoses / Procedures Referred By Conthomar t Referred To Contact [facility] Sp[facility] Center Diagnoses Low back pain Pain - Low back pain/ MRI 02/20/21 & XR 01/31/21 @ [facility] Bobby Das MD [address] [place] [address] [place] [address] [facility] [place] [address] Referral ID Status Reason Start Date Expiration Date Visits Re quested Visits Authorized [id number] Closed 03/07/2021 03/07/2022 1 1 Encounter Details Date Type Department Care Team (Late st Contact Info) Description 04/17/2021 2:30 PM EDT Office Visit [place] [address] Arpita Whitney APRN [facility] [place] [address] Low back pain, non-specific; Status post vertebroplasty; Transient left leg weakness Social History Tobacco Use Types Packs/Day Years [...] 37.1 ??C (98.8 ??F) 04/17/2021 2:50 PM ED T Respiratory Rate - - Oxygen Saturation 97% 04/17/2021 2:50 PM EDT Inhaled Oxygen Concentration - - Weight 83.5 kg (184 lb) 04/17/2021 2:50 PM EDT Height - - Body Mass Index 27.17 07/13/2019 2:14 PM EDT documented in this encounter Patient Instructions * Patient Instructions* Arpita Whitney APRN - 04/17/2021 2:30 PM EDT Refer [...] evaluation documented in this encounter Progress Notes * Arpita Whitney APRN - 04/17/2021 2:30 PM EDT Images from the original note were not included. [facility] Date [...] here for today. Had lumbar imaging and [facility] as ordered by PCP with [...] standing limited due to back pain [facility] Prescription Monitoring Program was checked. The number of prescriptions reported was 0. Current Medications: Outpatient Medications Marked as Taking for the 04/17/21 encounter (Office Visit) with Arpita Whitney APRN Medication Sig Dispense Refill ??? fluticasone propionate (FLONASE) 50 mcg/actuation [place], Suspension as needed. ??? fluorouraciL (EFUDEX) 5 [...] Biopsy Spine 07/20/[address] [facility]VENTION[facility] RAD ??? IR VERTEBROPLASTY LUMBAR MULTIPLE LEVELS 07/20/2019 IR Vertebroplasty Lumbar Multiple Levels 07/20/[address] [facility] RAD ??? IR VERTEBROPLASTY THORACIC SINGLE LEVEL 10/25/2020 IR Vertebroplasty Thoracic Single Level 10/25/[address] [facility] RAD Review of Systems: ROS: Denies fever, chills, weight loss, SOB, abdominal pain, no new leg weakness/numbnes, no recentbowel or bladder incontinence. RISK ASSESSMENT: Smoking: Alcohol: [...] y.o. year-old male who presents to the [facility], previously seen by JOSEE Weaver, Spine [...] Mr. Koko Zamora's care. Arpita Whitney, MSN, PUMPER HEAD- C, DROSS PULLER Nurse Practitioner [facility] [address] [address] / [facility] documented in this encounter Plan of Treatment Scheduled Referrals Name Type Priority Associated Diagnoses Orde r Schedule Referral to Physical Therapy Outpatient Referral Routine Low back pain, non-specific Status post vertebroplasty Ordered: 04/17/2021 Referral to Neurology Outpatient Referral Routine Low back pain, non-specific Status post vertebroplasty Transient left leg weakness Ordered: 04/17/2021 documented as of this encounter Visit Diagnoses Diagnosis Low back pain, non-specific Status post vertebroplasty Other postprocedural status Transient left leg weakness Other musculoskeletal symptoms referable to limbs documented in this encounter Care Teams Administrative Asst Relationship Specialty Start Date End Date Bobby Das MD [address] [place] [address] [place] [address] PCP - General 10/02/10 documented as of this encounter
--- OUTSIDE RECORDS SUMMARY | 2024-09-17 01:33 | XMS_ITS | Encounter Summary ---
Author Organization [facility] Address [facility] [place] [address] Care Team Providers Care Electrophysiology Technician Name Role Phone Bobby Das MD Primary Care Provider [phone] Reason for Visit * - Closed Specialty Diagnoses / Procedures Referred By Colby quezada Referred To Contact Procedures Film Library- Storage Only DX Spine Bobby Das MD [address] [place] [address] [place] [address] Referral ID Status Reason Start Date Expiration Date Visits Re quested Visits Authorized [id number] Closed 04/13/2021 04/13/2022 1 1 Encounter Details Date Type Department Care Team (Late st Contact Info) Description 01/31/2021 Ancillary Procedure Radiology Library at [facility] [place] [address] Bobby Das MD [address] [place] [address] [place] [address] Social History Tobacco Use Types Packs/Day [...] Diagnosis Comments FILM LIBRARY STORAGE ONLY DX SPINE Routine 01/31/2021 12:00 AM EDT documented in this encounter Results * Film Library- Storage Only DX Spine (01/31/2021 12:00 AM EDT) Narrative INO - 04/13/2021 11:47 AM EDT This exam is auto-finalizing. It's purpose is for storage only. Bobby Das MD IMG FILM LIBRARY ORD ERABLES [place], [place] documented in this encounter Visit Diagnoses Not on filedocumented in this encounter Care Teams Electrophysiology Technician Relationship Specialty Start Date End Date Bobby Das MD [address] [place] [address] [place] [address] PCP - General 10/02/10 documented as of this encounter
--- OUTSIDE RECORDS SUMMARY | 2024-09-17 01:33 | XMS_ITS | Encounter Summary ---
Author Organization [facility] [place] [address] Care Team Providers Care Rehab Manager Name Role Phone Bobby Das MD Primary Care Provider [phone] Encounter Details Date Type Department Care Team (Late st Contact Info) Description 09/06/2020 Ancillary Procedure Radiology at [facility] [address] [place] [address] Amy Grimaldo MD [address] [place] [address] Social History Tobacco Use Types Packs/Day Years [...] FILM LIBRARY STORAGE ONLY MR SPINE Routine 09/06/2020 12:00 AM EDT documented in this encounter Results * Film Library- Storage Only MR Spine (09/06/2020 12:00 AM EDT) Narrative RAD - 09/13/2020 10:40 AM EST This exam is auto-finalizing. It's purpose is for storage only. Amy Grimaldo MD IMG FILM LIBRARY ORDERABLES [place], [place] documented in this encounter Visit Diagnoses Not on filedocumented in this encounter Care Teams Rehab Manager Relationship Specialty Start Date End Date Bobby Das MD [address] [place] [address] [place] [phone] PCP - General 10/02/10 documented as of this encounter
--- OUTSIDE RECORDS SUMMARY | 2024-09-17 01:33 | XMS_ITS | Encounter Summary ---
Author Organization [facility] [place] [place] [address] Care Team Providers Care Phys Therapist Name Role Phone Bobby Das MD Primary Care Provider [phone] Encounter Details Date Type Department Care Team (Late st Contact Info) Description 02/27/2021 [place] [address] Matt Chisholm MD [facility] [place] [address] Social History Tobacco Use Types Packs/Day Years [...] as of this encounter Progress Notes * Matt Chisholm MD - 02/27/2021 2:25 PM EDT Patient phone call: Patient called to review his 02/20/2021 lumbar spine MRI performed for new low back pain that started spontaneously several weeks ago. Pain is left paramedian and associated with some left leg weakness. His PCP prescribed 10mg prednisone bid which has helped. I performed T9 v-plasty on patient in October 2020 with excellent pain relief per patient report. Current L-spine MRI does not reveal any new fractures or disc herniations to explain pain. Etiologyof pain is unclear. I suggested referral to pain clinic at . Patient will ask his PCP for the referral. I explained to patient that there is no role for vertebroplasty at this time. documented in this encounter Plan of Treatment Not on file documented as of this encounter Visit Diagnoses Not on filedocumented in this encounter Care Teams Phys Therapist Relationship Specialty Start Date End Date Bobby Das MD [address] [place] [address] [place] [address] PCP - General 10/02/10 documented as of this encounter
--- OUTSIDE RECORDS SUMMARY | 2024-09-17 01:33 | XMS_ITS | Encounter Summary ---
Author Organization [facility] [place] [address] Care Team Providers Care Hostess Name Role Phone Bobby Das MD Primary Care Provider [phone] Encounter Details Date Type Department Care Team (Late st Contact Info) Description 08/06/2020 12:05 AM EDT Ancillary Procedure Radiology at [facility] [address] [place] [id number] Amy Grimaldo MD [address] [place] [address] Social History Tobacco Use Types Packs/Day Years [...] FILM LIBRARY STORAGE ONLY DX SPINE Routine 08/06/2020 12:05 AM EDT documented in this encounter Results * Film Library- Storage Only DX Spine (08/06/2020 12:05 AM EDT) Narrative DH RAD - 09/14/2020 5:56 PM EST This exam is auto-finalizing. It's purpose is for storage only. Amy Grimaldo MD IMG FILM LIBRARY ORDERABLES [place], [place] documented in this encounter Visit Diagnoses Not on filedocumented in this encounter Care Teams Hostess Relationship Specialty Start Date End Date Bobby Das MD [address] [place] [address] [place] [address] PCP - General 10/02/10 documented as of this encounter
--- OUTSIDE RECORDS SUMMARY | 2024-09-17 01:33 | XMS_ITS | Encounter Summary ---
Author Organization [facility] [place] [address] Care Team Providers Care Director Sanitation Bureau Name Role Phone Bobby Das MD Primary Care Provider [phone] Encounter Details Date Type Department Care Team (Late st Contact Info) Description 08/06/2020 Ancillary Procedure Radiology at [facility] [address] [place] [address] Amy Grimaldo MD [address] [place] [address] Social History Tobacco Use Types Packs/Day Years [...] Associated Diagnosis Comments FILM LIBRARY STORAGE ONLY CT SPINE Routine 08/06/2020 12:00 AM EDT documented in this encounter Results * Film Library- Storage Only CT Spine (08/06/2020 12:00 AM EDT) Narrative RAD - 09/13/2020 10:40 AM EST This exam is auto-finalizing. It's purpose is for storage only. Amy Grimaldo MD IMG FILM LIBRARY ORDERABLES [place], [place] documented in this encounter Visit Diagnoses Not on filedocumented in this encounter Care Teams Director Sanitation Bureau Relationship Specialty Start Date End Date Bobby Das MD [address] [place] [address] [place] [phone] PCP - General 10/02/10 documented as of this encounter
--- OUTSIDE RECORDS SUMMARY | 2024-09-17 01:33 | XMS_ITS | Encounter Summary ---
Author Organization [facility] Address [facility] [place] [address] Care Team Providers Care On Call Pharmacy Technician Name Role Phone Bobby Das MD Primary Care Provider [phone] Encounter Details Date Type Department Care Team (Late st Contact Info) Description 05/15/2022 9:40 AM EDT Ancillary Procedure Radiology Library at [facility] [place] [address] Matt Branham MD [facility] [place] [address] Social History Tobacco Use Types Packs/Day Years [...] Diagnosis Comments FILM LIBRARY STORAGE ONLY CT ABDOMEN Routine 05/15/2022 9:32 AM EDT documented in this encounter Results * Film Library- Storage Only CT Abdomen (05/15/2022 9:32 AM EDT) Narrative [facility] [place] [place] - 05/15/2022 9:32 AM EDT This exam is auto-finalizing. It's purpose is for storage only. Matt Branham MD IM FILM LIBRARY ORD ERABLES [facility] [place], [place] documented in this encounter Visit Diagnoses Not on filedocumented in this encounter Care Teams On Call Pharmacy Technician Relationship Specialty Start Date End Date Bobby Das MD [address] [place] [address] [place] [phone] PCP - General 10/02/10 documented as of this encounter
--- OUTSIDE RECORDS SUMMARY | 2024-09-17 01:33 | XMS_ITS | Encounter Summary ---
Author Organization [facility] Address [facility] [place] [address] Care Team Providers Care Iron Pellet Tester Name Role Phone Bobby Das MD Primary Care Provider [phone] Reason for Visit * - Closed Specialty Diagnoses / Procedures Referred By Colby quezada Referred To Contact Procedures Film Library- Storage Only MR Spine Bobby Das MD [address] [place] [address] [place] [address] Referral ID Status Reason Start Date Expiration Date Visits Re quested Visits Authorized [id number] Closed 02/23/2021 02/23/2022 1 1 Encounter Details Date Type Department Care Team (Late st Contact Info) Description 03/16/2020 Ancillary Procedure Radiology Library at [facility] [place] [id number] Bobby Das MD [address] [place] [address] [place] [address] Social History Tobacco Use Types Packs/Day [...] FILM LIBRARY STORAGE ONLY MR SPINE Routine 03/16/2020 12:00 AM EDT documented in this encounter Results * Film Library- Storage Only MR Spine (03/16/2020 12:00 AM EDT) Narrative [facility] [place] 2] - 02/23/2021 12:56 PM EDT This exam is auto-finalizing. It's purpose is for storage only. Bobby Das MD G FILM LIBRARY ORD ERABLES [place], [place] documented in this encounter Visit Diagnoses Not on filedocumented in this encounter Care Teams Iron Pellet Tester Relationship Specialty Start Date End Date Bobby Das MD [address] [place] [address] [place] [address] PCP - General 10/02/10 documented as of this encounter
--- OUTSIDE RECORDS SUMMARY | 2024-09-17 01:33 | XMS_ITS | Encounter Summary ---
Author Organization [facility] [place] [address] Care Team Providers Care Enterprise Security Architect Name Role Phone Bobby Das MD Primary Care Provider [phone] Reason for Referral * Diagnostic Test (Routine) - Closed Specialty Diagnoses / Procedures Referred By Contac t Referred To Contact Radiology Diagnoses Compression fracture of T9 vertebra, initial encounter Procedures IR Vertebroplasty Thoracic Single Level Alphonso Esquivel, [facility] [place] [address] [place] [address] Referral ID Status Reason Start Date Expiration Date V isits Requested Visits Authorized [id number] Closed Specialty Service Requested 10/13/2020 04/13/2022 1 1 Encounter Details Date Type Department Care Team (Late st Contact Info) Description 10/13/2020 Orders [place] [address] Alphonso Esquivel [facility] [place] [address] Compression fracture of T9 vertebra, initial encounter Social History Tobacco Use Types Packs/Day [...] documented as of this encounter Results * IR Vertebroplasty Thoracic Single Level (10/25/2020 9:07 AM EST) Anatomical Region Laterality Modality Spine X-Ray Angiograph y Narrative 10/25/2020 11:02 AM EST EXAMINATION: IR VERTEBROPLASTY THORACIC SINGLE LEVEL CLINICAL HISTORY: 80 y.o.?male, with persistent (5-7 out of 10) mid thoracic back pain that began acutely in July during heavy lifting. He has failed conservative therapy and reports the pain limits his activities of daily living. He has a history of prostate cancer and underwent successful vertebroplasty of L1 in July,. ?MRI on 09/06/2020 showed an acute compression fracture of T9 and he was referred to our service for vertebroplasty and biopsy of T9. ? OPERATORS: Dr. Valverde, Dr. Soler, Dr. Stovall ANESTHESIA: Moderate sedation with intravenous midazolam and fentanyl EBL: 5 ml CONTRAST: None RADIATION EXPOSURE: A-plane 419 mGy, B-plane ??69 mGy. TECHNIQUE: Following discussion of the risks and benefits of the procedure, informed written and verbal consent was obtained. A pre-procedure MRI revealed acute compression fracture of T9. The patient was placed prone on the fluoroscopic table in the prone position. The skin overlying the lumbar spine was prepped and draped using maximal sterile technique. Due to the painful nature of the procedure a total of ??4 mg Versed and 200 mcg of Fentanyl was administered by the IR nurses during continuous monitoring of blood pressure, pulse oximetry, and respiration rate. 2 g of Ancef was administered prior to the procedure for prophylaxis. The ??T9 level was localized. 10 cc 1% lidocaine was used for local anesthesia of the right pedicle entry site at the skin and periosteum overlying the ??T9 level. A small skin incision was made and a 13ga introducer needle (Elastra) was advanced through the right pedicle and to the ??T9 vertebral body during an intermittent fluoroscopic guidance. The Robinson biopsy cannula was advanced through the introducer needle and the system was advanced further into the vertebral body. The core biopsy sample was removed and sent in formalin. 10 cc 1% lidocaine was used for local anesthesia of the left pedicle entry site at the skin and periosteum overlying the ??T9 level. A small skin incision was made and a 13ga introducer needle (Elastra) was advanced through the left pedicle and to the left pedicle of the T9 vertebral body during an intermittent fluoroscopic guidance. The polymethylmethacrylate/contrast mixture was prepped and injected through the right pedicle approach 13-gauge needle. There was cement extravasation focally just anterior to the vertebral body. The polymethylmethacrylate/contrast mixture was then injected through the ??left pedicle approach 13-gauge needle. Focal cement extravasation into the T9-T10 disc space. The cement was allowed to harden. The needle removed and post-procedure imaging obtained. The patient tolerated the procedure well. The patient was monitored in the recovery room post-procedure and there were no immediate complications. FINDINGS 1. Deposition of cement within the ??T9 vertebral bodies. Focal extravasation of polymethylmethacrylate/contrast mixture into the T9-T10 disc space. 2. Compression fracture of the T9 vertebral body with approximately 40% loss of height in the anterior and middle thirds of the vertebral body. 3. Patient reported decreased pain postprocedure (1 out of 10) and was able to ambulate without limitation. IMPRESSION [1. Uncomplicated T9 vertebroplasty and biopsy.] I, Dr. valverde, performed the procedure. I was present for the interservice administration of fentanyl and Versed with continuous monitoring of blood pressure, oxygenation and pulse rate. I have personally reviewed the image(s) and the resident's interpretation and agree with the findings, Matt Valverde at 10/25/2020 11:02 AM Thank you for letting us participate in the care of this patient. For questions regarding this report, please contact the number below. ? Procedure Note Matt Valverde MD - 10/25/2020 EXAMINATION: IR VERTEBROPLASTY THORACIC SINGLE LEVEL CLINICAL HISTORY: 80 y.o.?male, with persistent (5-7 out of 10) midthoracic back pain that began acutely in July during heavy lifting. He hasfailed conservative therapy and reports the pain limits his activities of dailyliving. He has a history of prostate cancer and underwent successfulvertebroplasty of L1 in July,. ?MRI on 09/06/2020 showed an acute compressionfracture of T9 and he was referred to our service for vertebroplasty and biopsy ofT9. ? OPERATORS: Dr. Valverde, Dr. Soler, Dr. Stovall ANESTHESIA: Moderate sedation with intravenous midazolam and fentanyl EBL: 5 ml CONTRAST: None RADIATION EXPOSURE: A-plane 419 mGy, B-plane 69 mGy. TECHNIQUE: Following discussion of the risks and benefits of the procedure,informed written and verbal consent was obtained. A pre-procedure MRI revealedacute compression fracture of T9. The patient was placed prone on thefluoroscopic table in the prone position. The skin overlying the lumbar spine wasprepped and draped using maximal sterile technique. Due to the painful nature of the procedure a total of 4 mg Versed and 200 mcg of Fentanyl was administeredby the IR nurses during continuous monitoring of blood pressure, pulseoximetry, and respiration rate. 2 g of Ancef was administered prior to the procedurefor prophylaxis. The T9 level was localized. 10 cc 1% lidocaine was used for localanesthesia of the right pedicle entry site at the skin and periosteum overlying the U6ohexm. A small skin incision was made and a 13ga introducer needle (Elastra)was advanced through the right pedicle and to the T9 vertebral body duringan intermittent fluoroscopic guidance. The Elastra biopsy cannula wasadvanced through the introducer needle and the system was advanced further intothe vertebral body. The core biopsy sample was removed and sent in formalin. 10 cc 1% lidocaine was used for local anesthesia of the left pedicle entrysite at the skin and periosteum overlying the T9 level. A small skin incisionwas made and a 13ga introducer needle (Elastra) was advanced through theleft pedicle and to the left pedicle of the T9 vertebral body during anintermittent fluoroscopic guidance. The polymethylmethacrylate/contrast mixture was prepped and injectedthrough the right pedicle approach 13-gauge needle. There was cement extravasationfocally just anterior to the vertebral body. The polymethylmethacrylate/contrast mixture was then injected through theleft pedicle approach 13-gauge needle. Focal cement extravasation into theT9-T10 disc space. The cement was allowed to harden. The needle removed and post-procedure imaging obtained. The patient tolerated the procedure well. The patient was monitored in the recovery room post-procedure and therewere no immediate complications. FINDINGS 1. Deposition of cement within the T9 vertebral bodies. Focalextravasation of polymethylmethacrylate/contrast mixture into the T9-T10 disc space. 2. Compression fracture of the T9 vertebral body with approximately 40%loss of height in the anterior and middle thirds of the vertebral body. 3. Patient reported decreased pain postprocedure (1 out of 10) and wasable to ambulate without limitation. IMPRESSION [1. Uncomplicated T9 vertebroplasty and biopsy.] I, Dr. valverde, performed the procedure. I was present for theinterservice administration of fentanyl and Versed with continuous monitoring ofblood pressure, oxygenation and pulse rate. I have personally reviewed the image(s) and the resident's interpretationand agree with the findings, Matt Valverde at 10/25/2020 11:02 AM Thank you for letting us participate in the care of this patient. Forquestions regarding this report, please contact the number below. Alphonso Esquivel DO [facility] [facility] ORDER[facility]LES * Prothrombin Time (10/25/2020 6:35 AM EST) Prothrombin Time 10.8 9.4 - 12.5 sec [facility] International Normalization Ratio 1.0 [facility] Comment: An [...] be appropriate depending on clinical circumstances. Blood specimen (specimen) 10/25/2020 6:35 AM EST 10/25/2020 6:52 AM EST Narrative Resulting Agency Comment Spec In Lab Alphonso Esquivel DO HEMATOLOGY ORDERABLE S [facility] [place] [address] * Platelet count (10/25/2020 6:35 AM EST) Platelet 192 145 - 357 x10(3)/mc L [facility] Immature Plt % 2.6 0.0 - 7.4 % [facility] Comment: Limitation of the Immature Platelet Fraction (IPF)-May be less reliable when the platelet count is less than 38x371/uL due to statistical imprecision. The IPF value provides an assessment of the Bone Marrow production status. ??It is useful in differentiating Thrombocytopenia caused by platelet destruction/consumption versus decreased production. It also helps to determine the imminent release of platelets and can be therefore a helpful parameter in Chemotherapy and Bone marrow transplant patients. ELEVATED IPF value: ?? When the bone marrow is in a state of over production such as when increased destruction and consumption are the underlying issue. ?? When the marrow is recovering post chemotherapy or bone marrow transplant. LOW to NORMAL IPF value: ?? When the bone marrow in not responding and is in a decreased state of production. References: [employer] The Clinical Value of the Immature Platelet Fraction (IPF) in Cell Recovery Document Number 10-1143 04/2011 [employer] The Role of the Immature Platelet Fraction (IPF) in the Differential Diagnosis of Thrombocytopenia, Document MKT-10-1209 V05 P003/23 Blood specimen (specimen) 10/25/2020 6:35 AM EST 10/25/2020 6:52 AM EST Narrative Resulting Agency Comment Spec In Lab Alphonso Esquivel DO HEMATOLOGY ORDERABLE S [facility] [place] [address] documented in this encounter Visit Diagnoses Diagnosis Compression fracture of T9 vertebra, initial encounter Compression fracture of T9 vertebra, initial encounter documented in this encounter Care Teams Enterprise Security Architect Relationship Specialty Start Date End Date Bobby Das MD [address] [place] [address] [place] [phone] PCP - General 10/02/10 documented as of this encounter
--- OUTSIDE RECORDS SUMMARY | 2024-09-17 01:33 | XMS_ITS | Encounter Summary ---
Author Organization [facility] [place] [address] Care Team Providers Care Ski Molder Name Role Phone Bobby Das MD Primary Care Provider [phone] Encounter Details Date Type Department Care Team (Latest Contact Info) Description 10/25/2020 6:35 AM EST Laboratory [place] [id number] Compression fracture of T9 vertebra, initial encounter [...] Date/Time Associated Diagnosis Comments HC VENIPUNCTURE Routine 10/25/2020 6:35 AM EST Compression fracture of T9 vertebra, initial encounter HC PLATELET COUNT Routine 10/25/2020 6:3 5 AM EST Compression fracture of T9 vertebra, initial encounter documented in this encounter Results * Platelet count (10/25/2020 6:35 AM EST) Platelet 192 145 - 357 x10(3)/mc [facility] Immature Plt % 2.6 0.0 - 7.4 % [facility] Comment: Limitation of the Immature Platelet Fraction (IPF)-May be less reliable when the platelet count is less than 46q956/uL due to statistical imprecision. The IPF value [...] in a decreased state of production. References: [employer] The Clinical Value of the Immature Platelet Fraction (IPF) in Cell Recovery Document Number [id number] 04/2011 [employer] The Role of the Immature Platelet Fraction (IPF) in the Differential Diagnosis of Thrombocytopenia, Document MKT-10-1209 V05/10/23 P014 Blood specimen (specimen) 10/25/2020 6:35 AM EST 10/25/2020 6:52 AM EST Narrative Resulting Agency Comment Spec In Lab Alphonso Esquivel DO HEMATOLOGY ORDERABLE S [facility] [place] [address] * Prothrombin Time (10/25/2020 6:35 AM EST) [...] HEMATOLOGY ORDERABLE S [facility] [place] [address] documented in this encounter Visit Diagnoses Diagnosis Compression fracture of T9 vertebra, initial encounter documented in this encounter Care Teams Ski Molder Relationship Specialty Start Date End Date Bboby Das MD [address] [place] [address] [place] [address] PCP - General 10/02/10 documented as of this encounter
--- OUTSIDE RECORDS SUMMARY | 2024-09-17 01:33 | XMS_ITS | Encounter Summary ---
[place] [address] Care Team Providers Care Lower In Supervisor Name Role Phone Bobby Das MD Primary Care Provider [phone] Encounter Details Date Type Department Care Team (Late st Contact Info) Description 10/13/2020 Notes [place] [address] Alphonso Esquivel [facility] [place] [address] Social History Tobacco Use Types Packs/Day Years [...] as of this encounter H&P Notes * Alphonso Esquivel DO - 10/13/2020 2:53 PM [...] Apply to eye 3 times daily as needed.,Disp: , Rfl: ??? calcium citrate (CALCITRATE) 200 mg (950 mg) Tablet, Take 1 tablet by mouth daily., Disp: , Rfl: ??? tamsulosin (FLOMAX) 0.4 mg Capsule, Take 0.4 mg by mouth daily., Disp: , Rfl: ??? ibuprofen (ADVIL;MOTRIN) 200 mg Tablet, Take 200 mg by mouth every 6 hours as needed for Pain.,Disp: , Rfl: ??? CRESTOR 40 mg Tablet, [...] images we will plan on Vertebroplasty and biopsy of T9. Labs to be performed day of [...] on filedocumented in this encounter Care Teams Lower In Supervisor Relationship Specialty Start Date End Date Bobby Das MD [address] [place] [address] [place] [phone] PCP - General 10/02/10 documented as of this encounter
--- OUTSIDE RECORDS SUMMARY | 2024-09-17 01:33 | XMS_ITS | Encounter Summary ---
Author Organization [facility] [place] [address] Care Team Providers Care Stock Driver Name Role Phone Bobby Das MD Primary Care Provider [phone] Encounter Details Date Type Department Care Team (Late st Contact Info) Description 08/28/2020 Ancillary Procedure Radiology at [facility] [address] [place] [address] Amy Grimaldo MD [address] [place] [address] Social History Tobacco Use Types Packs/Day Years [...] Associated Diagnosis Comments FILM LIBRARY STORAGE ONLY NUCLEAR MEDICINE Routine 08/28/2020 12:00 AM EDT documented in this encounter Results * Film Library- Storage Only nuclear medicine (08/28/2020 12:00 AM EDT) Narrative RAD - 09/14/2020 6:00 PM EST This exam is auto-finalizing. It's purpose is for storage only. Amy Grimaldo MD IMG FILM LIBRARY ORDERABLES [place], [place] documented in this encounter Visit Diagnoses Not on filedocumented in this encounter Care Teams Stock Driver Relationship Specialty Start Date End Date Bobby Das MD [address] [place] [address] [place] [phone] PCP - General 10/02/10 documented as of this encounter
--- OUTSIDE RECORDS SUMMARY | 2024-09-17 01:33 | XMS_ITS | Encounter Summary ---
[place] [address] Care Team Providers Care Pals Specialist Name Role Phone Bobby Das MD Primary Care Provider [phone] Reason for Visit * Auth/Cert Specialty Diagnoses / Procedures Referred By Colby quezada Referred To Contact Diagnoses Limb ischemia LLE thrombus Fito Summers MD [facility] [place] [address] [facility] Referral ID Status Reason Start Date Expiration Date Visits Re quested Visits Authorized [id number] 1 1 Encounter Details Date Type Department Care Team (Late st Contact Info) Description 05/15/2022 1:20 PM EDT Anesthesia Event [place] [address] Cari Ventura MD [facility] [place] [address] Duong Aguillon CRNA [facility] [place] [address] Anesthesia Record Procedure Summary Procedure Name Responsible Anesthesiologist Anesthesia Start Time Anesthesia Stop Time EMBOLECTOMY OR THROMBECTOMY, FEMOROPOPLITEAL, AORTOILIAC ARTERY BY LEG INCISION (WRVU 19.48) (Left) Cari Ventura MD 05/15/22 1320 05/15/22 1633 Events Date Time Event Comment 05/15/2022 1249 1320 AN Verify 1320 Start 1320 An Start Data 1332 An Induction 1335 An Intubation 1341 Anesthesia Ready 1518 Vascular Clamp OFF 1616 Extubation/LMA Out 1627 an stop data 1633 Recovery or ICU Handoff Lorie ent care was transferred to the destination unit staff after review of the patient's medical history, current anesthetic/surgical status and plan, according to the Provider Handoff Checklist. 1633 Stop Meds Name Total Midazolam 2 mg fentaNYL 150 mcg Propofol 150 mg Rocuronium 50 mg PHENYLephrine 720 mcg ePHEDrine 20 mg Protamine 50 mg Ondansetron 4 mg meTOPROLOL (LOPRESSOR) injection 1 mg cefTRIAXone 2 g PHENYLephrine INF 12,565 mcg Heparin 8,000 Units Calcium Chloride 1,000 mg Sodium Bicarbonate 8.4% 20 mEq Sugammadex 200 mg Lactated Ringers 1,200 mL Lactated Ringers 1,300 mL * Agents Name O2 Air N2O Isoflurane (et) * Blood No blood administrations on file. [...] Vargas RN 07/08/22 1715 by Bro Richter (RETIRED) Peripheral IV Line - Single Lumen 05/15/22; 1204; median cubital vein (antecubital fossa), left; osin-yfm-ijvesk catheter system; 18 gauge; OSH; site care per policy/procedure, site symptomatic, removed per policy/procedure, catheter/device intact; 05/16/22; 1117 05/15/22 1204 by Marcia Dimas RN 05/16/22 1117 by Hilton Suarez RN (RETIRED) Peripheral IV Line - Single Lumen 05/15/22; 1204; median cubital vein (antecubital fossa), right; tzao-vda-jbikfk catheter system; 18 gauge; OSH; 05/16/22; 0738 05/15/22 1204 by Marcia Dimas RN 05/16/22 0738 by Sary Dos Santos RN ETT Removal Date: ; Removal Time: 1648 05/15/22 1340 by Torres Aguilar, SHIFT MECHANIC 05/15/22 1648 by Torres Aguilar, SHIFT MECHANIC Urethral Catheter 05/15/22; 1340; Surg himanshu longer than 2 hours; indwelling double lumen catheter; hydrophilic coated, latex; 14; inserted at this facility; 1; 5; 10; none; drainage bag to dependent drainage; Cooper inserted by Nadine Workman, medical student.; 05/16/22; 1010 05/15/22 1340 by Jaylene Herring RN 05/16/22 1010 by Candelaria Medellin RN Arterial Line 05/15/22; 1341; radi al artery, left; 20 gauge; Anatomical Landmarks; continuous blood pressure monitoring, frequent blood gas measurement; Jeff; Sterile Prep, Sterile Gloves; no longer indicated; 05/15/22; 1700 05/15/22 1341 by Torres Aguilar, SHIFT MECHANIC 05/15/22 1700 by Dottie Gutierrez RN Incision 05/15/22; 1408; Left ; groin; LDA [...] Herring RN 12/08/22 1741 by Margy Knapp documented [...] OR Notes * Anesthesia Postprocedure Evaluation - Cari Ventura MD - 05/15/2022 5:19 PM EDT Department of Anesthesiology Post-procedure Note Patient: Koko Zamora Procedure Summary Date: 05/15/22 Room / Location: [facility] OR [address] [place] [address] MAIN OR Anesthesia Start: 1320 Anesthesia Stop: 1633 Procedure: EMBOLECTOMY OR THROMBECTOMY, FEMOROPOPLITEAL, AORTOILIAC ARTERY BY LEG INCISION (VU 19.48) (Left ) Diagnosis: (Acute Limb Ischemia) Surgeons: Fito Summers MD Responsible Provider: Cari Ventura MD Anesthesia Type: general ASA Status: 3 - Emergent All Anesthesia Providers: Anesthesiologist: Cari Ventura MD SHIFT MECHANIC: Torres Aguilar CRNA Vitals Value Taken Time BP 108/69 05/15/22 1715 Temp 36.3 ??C (97.3 ??F) 05/15/22 1633 Pulse 110 05/15/22 1719 Resp 16 05/15/22 1719 SpO2 89 % 05/15/22 1719 Pain Level Vitals shown include unvalidated device data. Patient Location: PACU/[facility] Level [...] and conversant, no complaints CARI VENTURA MD * Anesthesia Preprocedure Evaluation - Cari Ventura MD [...] IR Biopsy Spine 07/20/2019 Bobby Marshall MD [facility] INTERVENTIONL RAD ??? IR VERTEBROPLASTY LUMBAR MULTIPLE LEVELS 07/20/2019 IR Vertebroplasty Lumbar Multiple Levels 07/20/2019 Bobby Marshall MD [facility] INTERVENTIONL RAD ??? 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 Plan discussed with SHIFT MECHANIC. Anesthesia Screening documented in this encounter Plan of Treatment Not on file documented as of this encounter Visit Diagnoses Not on filedocumented in this encounter Administered Medications Inactive Administered Medications - up to 3 most recent administrations Medication Order MAR Action Action Date Dose Rate Site calcium chloride 10% (100 mg/mL) injection Intravenous, PRN, Starting on Fri05/15/22 at 1504, Until Fri05/15/22 at 1648, Anesthesia Intra-op, Routine Given 05/15/2022 3:20 PM EDT 300 mg Given 05/15/2022 3:18 PM EDT 200 mg Given 05/15/2022 3:15 PM EDT 200 mg cefTRIAXone (Rocephin) injection Intravenous, PRN, Starting on Fri05/15/22 at 1341, Until Fri05/15/22 at 1648, Anesthesia Intra-op, Routine Given 05/15/2022 1:41 PM EDT 2 g ePHEDrine sulfate (5 mg/mL) multi-dose injection Intravenous, PRN, Starting on Fri05/15/22 at 1432, Until Fri05/15/22 at 1648, Anesthesia Intra-op, Routine Given 05/15/2022 2:32 PM EDT 20 mg fentaNYL (pf) (50 mcg/mL) multi-dose injection Intravenous, PRN, Starting on Fri05/15/22 at 1325, Until Fri05/15/22 at 1648, Anesthesia Intra-op, Routine Given 05/15/2022 4:11 PM EDT 50 mcg Given 05/15/2022 1:32 PM EDT 50 mcg Given 05/15/2022 1:25 PM EDT 50 mcg heparin (porcine) (1,000 units/mL) injection Intravenous, PRN, Starting on Fri05/15/22 at 1434, Until Fri05/15/22 at 1648, Anesthesia Intra-op, Routine Given 05/15/2022 2:34 PM EDT 8,000 Uni ts lactated ringers infusion Intravenous, CONTINUOUS PRN, Starting on Fri05/15/22 at 1320, Until Fri05/15/22 at 1648, Anesthesia Intra-op New Bag 05/15/2022 1:20 PM EDT lactated ringers infusion Intravenous, CONTINUOUS PRN, Starting on Fri05/15/22 at 1341, Until Fri05/15/22 at 1648, Anesthesia Intra-op New Bag 05/15/2022 1:41 PM EDT metoprolol (LOPRESSOR) injection Intravenous, PRN, Starting on Fri05/15/22 at 1352, Until Fri05/15/22 at 1648, Anesthesia Intra-op, Routine Given 05/15/2022 1:52 PM EDT 1 mg midazolam (pf) (Versed) (1 mg/mL) multi-dose injection Intravenous, PRN, Starting on Fri05/15/22 at 1322, Until Fri05/15/22 at 1648, Anesthesia Intra-op, Routine Given 05/15/2022 1:28 PM EDT 1 mg Given 05/15/2022 1:22 PM EDT 1 mg ondansetron (pf) (Zofran) (2 mg/mL) injection Intravenous, PRN, Starting on Fri05/15/22 at 1613, Until Fri05/15/22 at 1648, Anesthesia Intra-op, Routine Given 05/15/2022 4:13 PM EDT 4 mg PHENYLephrine (Erik-Synephrine) (80 mcg/mL) in sodium chloride 0.9% 250 mL infusion Intravenous, CONTINUOUS PRN, Starting on Fri05/15/22 at 1338, Until Fri05/15/22 at 1648, Anesthesia Intra-op, Routine Rate/Dose Change 05/15/2022 3:51 PM EDT 50 mcg/min 37.5 mL/hr Rate/Dose Change 05/15/2022 2:30 PM EDT 100 mcg/min 75 mL/ hr Rate/Dose Change 05/15/2022 2:13 PM EDT 75 mcg/min 56.25 m L/hr PHENYLephrine in NS (PF) (ERIK-SYNEPHRINE) 0.8 mg/10 mL (80 mcg/mL) multi-dose injection Syrg Intravenous, PRN, Starting on Fri05/15/22 at 1328, Until Fri05/15/22 at 1648, Anesthesia Intra-op, Routine Given 05/15/2022 2:28 PM EDT 240 mcg Given 05/15/2022 2:20 PM EDT 160 mcg Given 05/15/2022 1:39 PM EDT 160 mcg propofoL (Diprivan) 10 mg/mL bolus injection (Anesthesia) Intravenous, PRN, Starting on Fri05/15/22 at 1332, Until Fri05/15/22 at 1648, Anesthesia Intra-op Given 05/15/2022 1:32 PM EDT 150 mg protamine (10 mg/mL) injection Intravenous, PRN, Starting on Fri05/15/22 at 1520, Until Fri05/15/22 at 1648, Anesthesia Intra-op, Routine Given 05/15/2022 3:20 PM EDT 50 mg rocuronium (Zemuron) (10 mg/mL) multi-dose injection Intravenous, PRN, Starting on Fri05/15/22 at 1332, Until Fri05/15/22 at 1648, Anesthesia Intra-op, Routine Given 05/15/2022 1:32 PM EDT 50 mg sodium bicarbonate 8.4 % (1 meq/ml) IV solution Subcutaneous, PRN, Starting on Fri05/15/22 at 1515, Until Fri05/15/22 at 1648, Anesthesia Intra-op, Routine Given 05/15/2022 3:15 PM EDT 10 mEq Given 05/15/2022 3:12 PM EDT 10 mEq sugammadex (Bridion) 100 mg/mL injection Intravenous, PRN, Starting on Fri05/15/22 at 1613, Until Fri05/15/22 at 1648, Anesthesia Intra-op, Routine Given 05/15/2022 4:13 PM EDT 200 mg documented in this encounter Care Teams Pals Specialist Relationship Specialty Start Date End Date Bobby Das MD [address] [place] [address] [place] [address] PCP - General 10/02/10 documented as of this encounter
--- OUTSIDE RECORDS SUMMARY | 2024-09-17 01:33 | XMS_ITS | Encounter Summary ---
Author Organization [place] [address] Care Team Providers Care Post Hole Digger Name Role Phone Bobby Das MD Primary Care Provider [phone] Encounter Details Date Type Department Care Team (Late st Contact Info) Description 09/22/2020 Telephone [facility] [place] [id number] Negra Butt RN Social History Tobacco Use Types Packs/Day [...] encounter Miscellaneous Notes * Telephone Encounter - Negra Butt RN - 09/22/2020 11:08 AM EST Incoming call from patient he states Someone from your office called me about 10 days ago and I am just getting back to you Nurse advises patient that she will reach out to our referrals team to see if they called you 10 days ago.patient agrees with this plan and will await a call back. Message forwarded to jerrod cody, [facility] and spine secretaries documented in this encounter Plan of Treatment Not on file documented as of this encounter Visit Diagnoses Not on filedocumented in this encounter Care Teams Post Hole Digger Relationship Specialty Start Date End Date Bobby Das MD [address] [place] [address] [place] [id number] PCP - General 10/02/10 documented as of this encounter
--- OUTSIDE RECORDS SUMMARY | 2024-09-17 01:33 | XMS_ITS | Encounter Summary ---
[place] [address] Care Team Providers Care Media Relations Director Name Role Phone Bobby Das MD Primary Care Provider [phone] Reason for Visit * Reason Comments Left Leg Pain * Auth/Cert Specialty Diagnoses / Procedures Referred By Colby t Referred To Contact Diagnoses Limb ischemia LLE thrombus Fito Summers MD [facility] [place] [address] [facility] Referral ID Status Reason Start Date Expiration Date Visits Re quested Visits Authorized [id number] 1 1 Encounter Details Date Type Department Care Team (Late st Contact Info) Description 05/15/2022 12:41 PM EDT - 05/15/2022 4:08 PM EDT [place] [address] Fito Summers MD [facility] [place] [address] EMBOLECTOMY OR THROMBECTOMY, FEMOROPOPLITEAL, AORTOILIAC ARTERY BY LEG INCISION (WRVU 19.48) Social History Tobacco Use Types Packs/Day Years [...] 36.4 ??C (97.5 ??F) 05/15/2022 12:00 PM E DT Respiratory Rate 20 05/15/2022 12:00 PM EDT Oxygen Saturation 94% 05/15/2022 12:00 PM EDT Inhaled Oxygen Concentration - - Weight - - Height - - Body Mass Index - - documented in this encounter Discharge Summaries * [...] onset Afib who presents in transfer from [facility] with acute limb ischemia [...] with ALI and emergently went to [facility] for L MANAGER OF ENTERPRISE transverse arteriotomy and primary repair, thromboembolectomy of L SFA/PFA/MANAGER OF ENTERPRISE, reperfusion venous drainage for 250 cc, and [...] Discharge Condition: Good Discharge to: Home with [facility] [address] [address] Future Appointments and Orders Future Appointments and Orders Future Appointments Provider Department Dept Phone 05/23/2022 10:30 AM oLretta Cohen MD Dermatology at [address] Arrive at: Manager Beverage [address] [place] [address] 06/07/2022 1:30 PM Gail Rae APRN Vascular Surgery at [facility] Arrive at: [facility] [place] Area [phone] 06/13/2022 7:30 AM Edson Lagos [place] Vascular Lab at [facility] Arrive at: [facility] [place] Area [phone] 06/13/2022 8:00 AM Fito Summers MD Vascular Surgery at [facility] Arrive at: [facility] [place] Area [phone] 06/13/2022 10:00 AM Alan Reid MD Cardiology at [facility] Arrive at: Manager [place] Area [phone] Future Orders Complete By Expires Ziopatch 48 Hrs-15 Days [OTY4556 CPT(R)] 05/21/2022 11/20/2022 Process Instructions: Scheduling Instructions: Comments: Questions: Does the patient have a pacemaker? If yes provide HI/LO settings: Apply for 7 or 14 days?: 7 Where will study be performed?: [facility] JOSSELYN, legs, multiple levels [VAS8 Custom] 06/21/2022 (Approximate) 12/21/2022 Process Instructions: There is no in-house vascular curb and gutter laborer available on weeknights (5pm-8am), weekends, or holidays. IF THIS IS A REQUEST FOR AN EMERGENT STUDY DURING THOSE HOURS, please have the senior provider responsible for the patient page the Vascular Surgery Fellow/Senior Resident operations systems specialist to discuss options. Scheduling Instructions: Questions: Indication for study/signs & symptoms: ALI s/p L fem cutdown with thromboembolectomy Question to be answered: Perfusion to feet? Please check toe pressure Preferred location?: [facility] Referral to Cardiology [REF12 Custom] As [...] comments. Scheduling Instructions: Comments: Please evaluate Koko Youguson for admission to Home Health. [address] [place] [phone] (home) Date of : 1940 Inpatient DOCUMENTATION FOR VNA SERVICES (INCLUDING THOSE PATIENTS WITH MEDICARE COVERAGE REQUIRING HOME VNA SERVICES AND/OR HOSPICE SERVICES) PATIENT'S LOCATION: Koko Bah [address] [facility] [phone] (home) Cell: No relevant phone numbers on file. Tank Assembler's Name: Koko In discussion with the attending physician, it is certified that this patient is under their care and that they, or a Nurse Practitioner,Clinical Nurse specialist or Physician Panel Wirer who is working directly with them, had [...] for managing ADL's. HOME HEALTH CARE AGENCY: [facility]. [address] [place] [address] Start of care: Within 24 to 48 [...] from this patient's PCP: Bobby Das MD [address] [place] [address] / [place] [phone] All VNA agencies which cover the area [...] For any problems or questions please call [phone] For issues on weeknights after 5pm and weekends please call [phone] and ask for the Vascular Fellow operations systems specialist. JOSEE Santiago Vascular Surgery 05/21/2022 documented [...] For any problems or questions please call [phone] For issues on weeknights after 5pm and weekends please call [phone] and ask for the Vascular Fellow operations systems specialist. documented in this encounter Medications at Time of Discharge Medication Sig Dispensed Refills Start Date End Date fluticasone propionate (FLONASE) 50 mcg/actuation Machias, Suspension 1 spray by Each Nare route [...] onset Afib who presents in transfer from [facility] with acute limb ischemia [...] status, full code. JOSEE Santiago 05/21/2022 Pager: [phone] * Brannon Isaacs - 05/21/2022 10:35 AM [...] plan as stated. Time IN / OUT: 4865-2287 Total Minutes, Physical Therapy: 25 Billing Code: 2 BOSTON Isaacs DPT Pager: [phone] Physical Therapy Inpatient Rehabilitation Department * [place] [...] Cardiac Care Unit [facility] Office Visit from 04/17/2021 in Pain [...] and plan of care per Dr. Mcnamara (residential fee appraiser). Please refer to her note above for [...] per protocol (see eMAR). A+Ox4, SBA w abimbola, discharge planning as possible. Tere Blankenship RN [...] ED to Hosp-Admission (Current) from 05/15/[address] [place] [address] Office Visit from 04/17/2021 in Pain and [...] and plan of care per Dr. Mcnamara (residential fee appraiser). Please refer to her note above for [...] 2000 (not at [facility])with no CAD at that time. Currently, an [...] onset Afib who presents in transfer from [facility] with acute limb ischemia [...] management following Dottie Hill APRN 05/20/2022 Pager: [phone] * Laney Atkins RN - 05/20/2022 1:14 AM EDT Pt Koko transferred to room from [facility]. A&Ox4, oriented to room and call boo. Masimo and telemetry placed. In agreement with assessment as documented this evening by Nuris ASHLEY. No complaintsat this time. Pt aware of NPO status and plan for cardiac cath in AM. Urinal provided. Resting comfortably in bed. * Nuris Lester RN - 05/20/2022 1:09 AM EDT Pt. Transferred to [facility]. RN accompanied patient to floor and handed off to [facility] RN * Dottie Hill APRN - 05/19/2022 10:02 AM EDT Vascular Surgery Progress Note Koko Bah is a 81 y.o. male with w new onset Afib who presents in transfer from [facility] with acute limb ischemia [...] management following Dottie Hill APRN 05/19/2022 Pager: [phone] * Emily Sauceda RN - 05/19/2022 6:28 AM EDT OUTCOME EVALUATION NOTE: OUTCOME SUMMARY: Patient AOx4, VSS on RA. Afib on tele. HR controlled w/ PRN metop, given x2. Denies CP, SOB, n/v. See flowsheets for NVC. Dressings to LLE CDI, prevena WV to groin intact. Voiding to urinal. LBM RADIATION CONTROL WORKER,patient stating he will maybe try the laxative [...] to LLE WDL and FORREST. Denies n/t to BLE. 2+ dorsal pulses noted. Heparin drip infusing at 1200 units/hr. UFH within therapeutic range, next labs due with morning labs. Voiding adequately without difficulty to bedside urinal. LBM RADIATION CONTROL WORKER.Up to chair this AM with nursing staff. [...] onset Afib who presents in transfer from [facility] with acute limb ischemia [...] management following Dottie Hill APRN 05/18/2022 Pager: [phone] * Brannon Isaacs - 05/18/2022 10:00 AM [...] IR Biopsy Spine 07/20/2019 Bobby Marshall MD [facility] INTERVENTIONL RAD ??? IR VERTEBROPLASTY LUMBAR MULTIPLE LEVELS 07/20/2019 IR Vertebroplasty Lumbar Multiple Levels 07/20/2019 Bobby Marshall MD [facility] INTERVENTIONL RAD ??? IR VERTEBROPLASTY THORACIC SINGLE LEVEL 10/25/2020 IR Vertebroplasty Thoracic Single Level 10/25/2020 Matt Chisholm MD [facility] INTERVENTIONL RAD ??? PRO EMBLC/THRMBC FEMORAL POPLITEAL AORTO-ILIAC ARTERY Left 05/15/2022 EMBOLECTOMY OR THROMBECTOMY, FEMOROPOPLITEAL, AORTOILIAC ARTERY BY LEG INCISION (WRVU 19.48) performed by Fito Summers MD at [facility] MAIN OR Social History: Pt [...] outlinedin this evaluation. Time IN / OUT: 0129-4248 Total Minutes, Physical Therapy: 30 Billing Code: Basilio Brannon Isaacs, PT Pager: [phone] Physical Therapy Inpatient Rehabilitation Department * Emily Sauceda RN - 05/18/2022 4:34 AM EDT OUTCOME EVALUATION NOTE: OUTCOME SUMMARY: Patient AOx4, VSS on 2LNC. Afib on tele. HR above 120, MD aware, PRN IV metop given x1, HR returnedto 90's-low 100's. Denies CP, SOB, n/v. See flowsheets for NVC. Dressings to LLE CDI, prevena WV togroin intact. Voiding to urinal. LBM RADIATION CONTROL WORKER. Heparin gtt therapeutic. Pain controlled. Patient sleeping [...] adequately without difficulty to bedside urinal. LBM RADIATION CONTROL WORKER. Patient not OOB this shift. Currently NPO awaiting procedure in labor economics professor. PLAN MOVING FORWARD: Bleeding precautions Pain management neurovascular checks PT/OT NPO for labor economics professor INDIVIDUALIZED FALL PREVENTION INTERVENTIONS: Patient-specific fall risk [...] the Emergency Department as a transfer from [facility] with left lower extremity limb ischemia. He went to [facility] and was started on heparin and transferred to [facility] for evaluation by vascular surgery [...] and LV systolic dysfunction were new from 2012.Pt visted, present in room with MDs the arriving for planned closure offasciotomies at bedside after which he will will be going to the labor economics professor for evaluation. Will defer PT eval at present but will see as ordered post cardiac catheritizaton. Social Hx:Pt lives with his Ursula in [place], [place] in a 2 level home in [...] Precautions: Pt will be WBAT LLE LISBET MORELOS PT Pager # [phone] In-Pt Rehab Medicine * Dottie Hill APRN - 05/17/2022 7:42 AM EDT Vascular Surgery Progress Note Koko Bah is a 81 y.o. male with w new onset Afib who presents in transfer from [facility] with acute limb ischemia [...] management following Dottie Hill APRN 05/17/2022 Pager: [phone] * Sary Dos Santos RN - 05/17/2022 [...] indirect monitoring]: Brendao, Purposeful Rounding, Nurse Knowledge Exchange at Bedside, [...] onset Afib who presents in transfer from [facility] with acute limb ischemia [...] management following Edward Rodríguez MD 05/16/2022 Pager: [phone] * Sary Dos Santos RN - 05/16/2022 [...] met 2129 Hand off to DION Ramirez [facility] documented in this encounter H&P Notes * [...] onset Afib who presents in transfer from [facility] with acute limb ischemia of the LLE. The patient had sudden pain starting at 630 this morning he presented [facility] where he was placed on heparin. [...] IR Biopsy Spine 07/20/2019 Bobby Marshall MD [facility] INTERVENTIONL RAD ??? IR VERTEBROPLASTY LUMBAR MULTIPLE LEVELS 07/20/2019 IR Vertebroplasty Lumbar Multiple Levels 07/20/2019 Bobby Marshall MD [facility] INTERVENTIONL RAD ??? IR VERTEBROPLASTY THORACIC SINGLE LEVEL 10/25/2020 IR Vertebroplasty Thoracic Single Level 10/25/2020 Matt Chisholm MD [facility] INTERVENTIONL RAD Social Hx: Social [...] Refill ??? fluticasone propionate (FLONASE) 50 mcg/actuation Machias, Suspension as needed. ??? fluorouraciL (EFUDEX) 5 [...] and consented. Tim Chicas MD 05/15/2022 Pager: [phone] documented in this encounter ED Notes * [...] was started on heparin and transferred to [facility] for evaluation by vascular surgery. [...] of the left lower extremity. Vascular surgery [facility] was contacted and he was transferred [...] in an outpatient cardiac rehabilitation program at [facility] was discussed. Patient agrees to a referral to this program. Timing will depend on his recovery from Vascular surgery. He is going home w/VNA PT. I gave him the brochure for the program at [facility] for future reference. * Care [...] Contact information for follow-up Home Health & Hospice[address] [facility] [address] Transportation: family or friend will provide Functional status prior to admission: Independent Home Environment: Others in the home: spouse, pet(s) (Colltom- Christie). Current Living Arrangements: home/apartment/condo. Accessibility Concerns:4 step to enter. Current Functional Ability: DME used at home: commode chair, walker - rolling, raised toilet seat DME Needed at Discharge: none anticipated Patient is insured through: Primary Insurance: MEDICARE Payor: MEDICARE / Plan: MEDICARE PART A & B / Product Type: *No Product type* / Secondary Insurance: [place] [employer] Prescription Coverage: Yes This plan was formulated with input from patient and team. All are in agreement with plan. GEOFFREY RS has communicated with Oli - for initial IMM. Shawn (Paulo López RN RN/CM - Cellphone: [phone] Pager: [phone] Covering Service RN/CM * Plan of Care [...] of Care Management letter from the Community Specialist pertaining to rehabreferrals. ?? provide a letter describing our affiliations within the [facility] and educate about their right to choose where referrals are sent. ?? provide a list of Home Health Agencies / Durable Medical Equipment vendors which serve their preferred geographic area. ?? provided patient with [facility] Star Quality Rating handout. They have requested referrals to: [facility] [address] [place] [phone] Note routed to a Kiln Firer Helper who will communicate referrals to facilities and provide any required information. Transportation: family or friend will provide Barriers to discharge: None Plan going forward: Patient is going for a cardiac cath today and plan will come from there. Patient was recently seen by PT and they recommend VNA at time of discharge. [facility] was routed and pended at this time. Care Management will continue to follow and assist with discharge planning and coordination of care as indicated. Anticipated Date of Discharge: 05/21/2022 Nataly RICHMOND RN Phone: [phone] Pager: [phone] * Plan of Care - Laney Atkins [...] [facility] [place] [address] INPATIENT CARDIOLOGY CONSULT NOTE Date of Consultation: [...] IR Biopsy Spine 07/20/2019 Bobby Marshall MD [facility] INTERVENTIONL RAD IR VERTEBROPLASTY LUMBAR MULTIPLE LEVELS 07/20/2019 IR Vertebroplasty Lumbar Multiple Levels 07/20/2019 Bobby Marshall MD [facility] INTERVENTIONL RAD IR VERTEBROPLASTY THORACIC SINGLE LEVEL 10/25/2020 IR Vertebroplasty Thoracic Single Level 10/25/2020 Matt Chisholm MD [facility] INTERVENTIONL RAD PRO EMBLC/THRMBC FEMORAL POPLITEAL AORTO-ILIAC ARTERY Left 05/15/2022 EMBOLECTOMY OR THROMBECTOMY, FEMOROPOPLITEAL, AORTOILIAC ARTERY BY LEG INCISION (WRVU 19.48) performed by Fito Summers MD at [facility] MAIN OR Allergies Allergen Reactions Aspirin Other (See Comments) GI bleed Out-Patient Medications: Medications Prior to Admission Medication Sig Dispense Refill Last Dose fluorouraciL (EFUDEX) 5 % Cream daily. CRESTOR 40 mg Tablet Take 40 mg by mouth daily. fluticasone propionate (FLONASE) 50 mcg/actuation Machias, Suspension as needed. ascorbic acid, vitamin C, [...] Daily heparin (porcine) infusion 1,200 Units/hr (05/17/22 0357) Family History: No family history on file. [...] to Hosp-Admission (Current) from 05/15/2022 in 3 [facility] Office Visit from 04/17/2021 in Pain [...] rhythm control trial in the future, but yhaaira l need to be anticoagulated (CHADSVASC 6) [...] continue to follow Anne-Marie Larson MD Pager [phone] Clinic: [phone] 05/17/22 6:22 PM * Initial Assessments - [...] spouse would be surrogate decision maker per [place] surrogate decision making law. (Only good for 180 days) Any patient receiving care at [facility] must abide by [place] law. The hierarchy for surrogate decision making [...] (i) The agent with financial power of divorce attorney or a conservator appointed in accordance [...] toilet seat Home Address confirmed as: [address] [place] [phone] Social & Family Supports: All names listed below confirmed with patient as Incorrect. Will notify oli to correct. Wifes address is same as and phone is [phone]. Extended Emergency Contact Information Primary Emergency Contact: Ursula Bah Address: [address] [place] [address] [facility] Relation: Spouse Current Care Provided by: [...] [facility] Prescription Coverage: Yes Preferred Pharmacy: [address] [id number] - [place], [place] - [address] [facility] [address] [facility] [address] [facility] [address] - [place], [place] - [address] [facility] [address] [place] [address] Status: Patient is a : unable to assess Primary Care Provider: Bobby Das MD [phone] Patient/Caregiver Goals of Treatment: to walk again Potential Needs for Transition of Care: none noted per 05/16 IDR Transportation: family will provide Transportation Anticipated: family or friend will provide Concerns to be Addressed: no discharge needs identified Assessment: Patient is admitted to vascular surg service for left lower extremity limb ischemia Plan: Per PT OT recommendations . Has used [facility] in the past. A member of the Care Management team will continue to monitor progress, follow for continuity of care and assist with transition of care planning. Ifrah Bell RN BSN [employer]zer Hand[employer] Gold Leaf of Care Management Pager [phone] * Brief Op Note - Erin Garza MD - 05/15/2022 5:04 PM EDT Brief Operative Note Patient Name: Koko Bah : [id number] MR#: [id number] Case Date: 05/15/2022 Surgeon: Surgeon(s) and Role: [...] [facility] Operative Note Patient Name: Koko Bah : [id number] MR#: [id number] Case Date: 05/15/2022 Surgeon: Surgeon(s) and Role: [...] PM EDT Emblc/Thrmbc Femoral Popliteal Aorto-Iliac Artery (01948) 05/15/2022 1:20 PM EDT Acute Limb Ischemia [...] Text Report Department: Vascular Surgery Lab Patient: [id number] (KOKO BAH) CPT: 30113 Referring Physician: FITO SUMMERS ?? Phone: Indications: s/p L MANAGER OF ENTERPRISE endart. Diabetes mellitus: no Findings: Right ?Pressure [...] EDT Fito Summers MD VASCULAR ORDERABLES VASCUBASE * Ziopatch 48 Hrs-15 Days (05/21/2022 4:33 [...] 12:35 PM EDT) UF Heparin 0.42 IU/mL [facility] Comment: Heparin (anti-Xa) levels should [...] Lab Fito Summers MD HEMATOLOGY ORDERABLE S [facility] [place] [address] * Differential, Automated (05/21/2022 6:15 AM EDT) Neutrophil % 58.8 % [facility] Neutrophil Absolute 3.97 1.70 - 6.10 x10(3)/[facility] Lymph % 25.2 % [facility] Lymphocytes Abs 1.7 0.9 - 3.2 x10(3)/[facility] Monocyte % 12.9 % [facility] Monocyte Abs 0.9 0.3 - 0.9 x10(3)/[facility] Eos % 2.1 % [facility] Eosinophils Abs 0.1 0.0 - 0.4 x10(3)/[facility] Basophil % 0.4 % [facility] Baso Absolute 0.0 0.0 - 0.1 x10(3)/[facility] Immature Gran % 0.60 % [facility] Comment: Immature granulocytes(IG's)percentage and absolute count will include metamyelocytes, myelocytes, and promyelocytes. Blood smears from CBCs yielding IG's will be scanned manually for concordance. If this scan disagrees with the automated IG or if promyelocytes are noted, a manual differential will be performed. Immature Gran Absolute 0.04 0.00 - 0.04 x10(3)/[facility] Blood 05/21/2022 6:15 AM EDT 05/21/2022 6:38 AM EDT Narrative Resulting Agency Comment Spec In Lab Edward Rodríguez MD HEMATOLOGY ORDER NICK [facility] [place] [address] * (ABNORMAL) Hemogram (05/21/2022 6:15 AM EDT) White Blood Cell 6.8 4.0 - 9.5 x10(3)/mc L [facility] Red Blood Cell 3.59(L) 4.58 - 5.54 x10(6)/mc L [facility] Hemoglobin 11.8(L) 13.7 - 16.5 g/dL [facility] Hematocrit 34.5(L) 40.5 - 48.5 % [facility] Mean Cell Volume 96.1(H) 82.9 - 93.1 fL [facility] Mean Cell Hemoglobin 32.9(H) 27.5 - 32.1 pg [facility] Mean Cell Hemoglobin Concentration 34.2 32.0 - 35.7 g/dL [facility] Platelet 198 145 - 357 x10(3)/mc L [facility] RDW Standard Deviation 44.9 36.0 - 45.0 [facility] RDW coefficient of variation 12.6 11.4 - 13.8 % [facility] Mean Platelet Volume 10.0 7.6 - 12.9 [facility] NRBC% auto 0.3 % [facility] NRBC Absolute 0.020(H) 0.000 - 0.000 x10(3)/mc L [facility] Blood 05/21/2022 6:15 AM EDT 05/21/2022 6:38 AM EDT Narrative Resulting Agency Comment Spec In Lab Edward Rodríguez MD HEMATOLOGY ORDER NICK [facility] [place] [address] * EKG 12 Lead (05/20/2022 7:04 PM EDT) Ventricular rate 101 BPM MUSE SYSTEM QRS Duration 116 ms MUSE SYSTEM Q-T Interval 378 ms MUSE SYSTEM QTC Calculated (Bezet) 490 ms MUSE SYSTEM Calculated R [place] -53 degrees MUSE SYSTEM Calculated T [place] 101 degrees MUSE SYSTEM INTERPRETATION Atrial fibrillation [...] Modality Other Narrative 05/20/2022 7:09 PM EDT ?[facility] ? Cardiac Catheterization/Intervention Report ? Patient Name: SeraKoko ? Procedure Date: 05/20/2022 ? A #: [id number] ? Primary Physician: Malathi, Abundio S ? Case #: [id number] ? File Name: [id number] ? Catheterization Order Number: [id number] ? [facility] ? Final Report [place], [place] ? Patient Name: ? Koko J. Bah ? ID#: ?[id number] ? : ?1940 ? Procedure Date: ? [...] was designated as ASA Class IV. The HA clinical ?frailty scale is 3: Managing Well. [...] was Urgent. The indication for ?the labor economics professor visit is cardiomyopathy. Chest pain symptom assessment [...] ?3.5 guiding catheter and a 3.[address] ??20 Mhz. ??Imaging ?was successful. ??Image [...] A premounted 2.75 x 30 mm Rudy Eldridge (AMPARO) was deployed ? with a maximum [...] may require ?modification of this regimen. Consult [facility] Interventional Cardiology for ?questions. ?The 1 year [...] Procedure Note Abundio Servin MD - 07/12/[address] [facility] Cardiac Catheterization/Intervention Report Patient Name: Koko Bah Procedure Date: 05/20/2022 A #: [id number] Primary Physician: Abundio Servin Case #: File Name: [id number] Catheterization Order Number: [id number] [facility] FinalReport [place] [place], [place] Patient Name: Koko Bah ID#:[id number] :1940 Procedure Date: May 20, 2022 Case [...] procedure was Urgent. The indicationfor the labor economics professor visit is cardiomyopathy. Chest pain symptom assessmentwas: [...] catheter and a 3.[address] 20 Mhz.Imaging was successful. Image quality [...] The lesion was predilated with a 2.00mm [id number] MM balloon with a maximum inflation pressure of 12atmospheres. A premounted 2.75 x 30 mm Scalf Eldridge (AMPARO) wasdeployed with a maximum inflation pressure [...] situation mayrequire modification of this regimen. Consult [facility] questions. The 1 year bleeding [...] * POCT Glucose (05/20/2022 5:42 PM EDT) [facility] Glucose, POC 123 65 - 199 mg/dL [facility] Comment: Supplemental ranges: <140 mg/dL before meals <180 mg/dL all other times of the day Blood 05/20/2022 5:42 PM EDT 05/20/2022 5:42 PM EDT Fito Summers MD POINT OF CARE TEST O RDERABLES [facility] [place] [address] * (ABNORMAL) BMP w/fasting Glucose (05/20/2022 10:50 AM EDT) Glucose Fasting 152(H) 65 - 99 mg/dL [facility] Comment: ?Fasting* Glucose Interpretive Criteria [...] Position Statement from the [place] [employer]. ??Diabetes Care, Volume 33, Supplement 1, Nov 2009 Blood Urea Nitrogen 11 10 - 20 mg/dL [facility] Creatinine 0.63(L) 0.80 - 1.50 mg/dL [facility] Sodium 137 135 - 145 mmol/L [facility] Potassium 3.6 3.5 - 5.0 mmol/L [facility] Comment: Please note: ??Patients with WBC >100,000 may have falsely elevated Potassium levels. ??For accurate Potassium quantification in these patients send serum separator tube (gold top) for subsequent determinations. ??Contact the Clinical Chemistry Laboratory if there are any questions. Chloride 103 98 - 107 mmol/L [facility] Carbon Dioxide 24 22 - 31 mmol/L [facility] Anion Gap 10 5 - 15 mmol/L [facility] Calcium 8.7 8.5 - 10.5 mg/dL [facility] Est Glomerular Filtration Rate 97 >=60 mL/min/1. 73 m?? [facility] Comment: This patient's [...] Summers MD CHEMISTRY ORDERABLES Performing Organization Address [facility] Co de Phone Number [facility] [place] [address] * Heparin (unfractionated) Level (05/20/2022 5:02 AM EDT) UF Heparin 0.57 IU/mL [facility] Comment: Heparin (anti-Xa) levels should [...] MD HEMATOLOGY ORDERABLE S Performing Organization Address City/[facility]/ZIP Co de Phone Number [facility] [place] [address] * (ABNORMAL) Differential, Automated (05/20/2022 5:02 AM EDT) Neutrophil % 58.1 % [facility] Neutrophil Absolute 4.52 1.70 - 6.10 x10(3)/ L [facility] Lymph % 24.1 % [facility] Lymphocytes Abs 1.9 0.9 - 3.2 x10(3)/ L [facility] Monocyte % 13.8 % [facility] Monocyte Abs 1.1(H) 0.3 - 0.9 x10(3)/ L [facility] Eos % 2.6 % [facility] Eosinophils Abs 0.2 0.0 - 0.4 x10(3)/[facility] Basophil % 0.8 % [facility] Baso Absolute 0.1 0.0 - 0.1 x10(3)/ L [facility] Immature Gran % 0.60 % [facility] Comment: Immature granulocytes(IG's)percentage and absolute count will include metamyelocytes, myelocytes, and promyelocytes. Blood smears from CBCs yielding IG's will be scanned manually for concordance. If this scan disagrees with the automated IG or if promyelocytes are noted, a manual differential will be performed. Immature Gran Absolute 0.05(H) 0.00 - 0.04 x10(3)/ L [facility] Blood 05/20/2022 5:02 AM EDT 05/20/2022 5:19 AM EDT Narrative Resulting Agency Comment Spec In Lab Edward Rodríguez MD HEMATOLOGY ORDER NICK [facility] [place] [address] * (ABNORMAL) Hemogram (05/20/2022 5:02 AM EDT) [facility] White Blood Cell 7.8 4.0 - 9.5 x10(3)/ L [facility] Red Blood Cell 3.53(L) 4.58 - 5.54 x10(6)/mc L [facility] Hemoglobin 11.4(L) 13.7 - 16.5 g/dL [facility] Hematocrit 34.3(L) 40.5 - 48.5 % [facility] Mean Cell Volume 97.2(H) 82.9 - 93.1 fL [facility] Mean Cell Hemoglobin 32.3(H) 27.5 - 32.1 pg [facility] Mean Cell Hemoglobin Concentration 33.2 32.0 - 35.7 g/dL [facility] Platelet 181 145 - 357 x10(3)/[facility]ATORY RDW Standard Deviation 46.4(H) 36.0 - 45.0 [facility] RDW coefficient of variation 13.0 11.4 - 13.8 % [facility] Mean Platelet Volume 10.4 7.6 - 12.9 fL [facility] NRBC% auto 0.0 % [facility] NRBC Absolute 0.000 0.000 - 0.000 x10(3)/[facility] Blood 05/20/2022 5:02 AM EDT 05/20/2022 5:19 AM EDT Narrative Resulting Agency Comment Spec In Lab Edward Rodríguez MD HEMATOLOGY ORDER NICK [facility] [place] [address] * Heparin (unfractionated) Level (05/19/2022 3:26 AM EDT) [facility] UF Heparin 0.59 IU/mL [facility] Comment: Heparin (anti-Xa) levels should [...] Lab Fito Summers MD HEMATOLOGY ORDERABLE S [facility] [place] [address] * (ABNORMAL) Differential, Automated (05/19/2022 3:26 AM EDT) Neutrophil % 62.1 % [facility] Neutrophil Absolute 4.59 1.70 - 6.10 x10(3)/mc L [facility] Lymph % 22.1 % [facility] Lymphocytes Abs 1.6 0.9 - 3.2 x10(3)/mc L [facility] Monocyte % 13.5 % [facility] Monocyte Abs 1.0(H) 0.3 - 0.9 x10(3)/mc L [facility] Eos % 1.3 % [facility] Eosinophils Abs 0.1 0.0 - 0.4 x10(3)/mc L [facility] Basophil % 0.5 % [facility] Baso Absolute 0.0 0.0 - 0.1 x10(3)/mc L [facility] Immature Gran % 0.50 % [facility] Comment: Immature granulocytes(IG's)percentage and absolute count will include metamyelocytes, myelocytes, and promyelocytes. Blood smears from CBCs yielding IG's will be scanned manually for concordance. If this scan disagrees with the automated IG or if promyelocytes are noted, a manual differential will be performed. Immature Gran Absolute 0.04 0.00 - 0.04 x10(3)/mc L [facility] Blood 05/19/2022 3:26 AM EDT 05/19/2022 3:59 AM EDT Narrative Resulting Agency Comment Spec In Lab Edward Rodrígeuz MD HEMATOLOGY ORDER NICK [facility] [place] [address] * (ABNORMAL) Hemogram (05/19/2022 3:26 AM EDT) White Blood Cell 7.4 4.0 - 9.5 x10(3)/ L [facility] Red Blood Cell 3.74(L) 4.58 - 5.54 x10(6)/mc L [facility] Hemoglobin 12.1(L) 13.7 - 16.5 g/dL [facility] Hematocrit 36.4(L) 40.5 - 48.5 % [facility] Mean Cell Volume 97.3(H) 82.9 - 93.1 fL [facility] Mean Cell Hemoglobin 32.4(H) 27.5 - 32.1 pg [facility] Mean Cell Hemoglobin Concentration 33.2 32.0 - 35.7 g/dL [facility] Platelet 168 145 - 357 x10(3)/mc L [facility] RDW Standard Deviation 46.9(H) 36.0 - 45.0 fL [facility] RDW coefficient of variation 13.0 11.4 - 13.8 % [facility] Mean Platelet Volume 10.5 7.6 - 12.9 fL [facility] NRBC% auto 0.0 % [facility] NRBC Absolute 0.000 0.000 - 0.000 x10(3)/mc L [facility] Blood 05/19/2022 3:26 AM EDT 05/19/2022 3:59 AM EDT Narrative Resulting Agency Comment Spec In Lab Edward Rodríguez MD HEMATOLOGY ORDER NICK Performing Organization Address [facility] Co de Phone Number [facility] [place] [address] * TSH (05/18/2022 8:00 PM EDT) Pathologist [facility] Thyroid Stimulating Hormone 2.27 0.27 - 4.20 mcIU/mL [facility] Comment: Reference Interval (mcIU/mL): Females: ??First Trimester: 0.23-3.88 ??Second Trimester: 0.22-3.90 ??Third Trimester: 0.44-4.66 Blood 05/18/2022 8:00 PM EDT 05/18/2022 8:06 PM EDT Narrative Resulting Agency Comment Spec In Lab Fito Summers MD CHEMISTRY ORDERABLES Performing Organization Address [facility] de Phone Number [facility] [place] [address] * (ABNORMAL) Differential, Automated (05/18/2022 3:34 AM EDT) Neutrophil % 67.2 % [facility] Neutrophil Absolute 5.89 1.70 - 6.10 x10(3)/mc L [facility] Lymph % 17.1 % [facility] Lymphocytes Abs 1.5 0.9 - 3.2 x10(3)/mc L [facility] Monocyte % 13.6 % [facility] Monocyte Abs 1.2(H) 0.3 - 0.9 x10(3)/mc L [facility] Eos % 1.0 % [facility] Eosinophils Abs 0.1 0.0 - 0.4 x10(3)/[facility]ORATORY Basophil % 0.6 % [facility] Baso Absolute 0.0 0.0 - 0.1 x10(3)/[facility] LABORATORY Immature Gran % 0.50 % [facility] Comment: Immature granulocytes(IG's)percentage and absolute count will include metamyelocytes, myelocytes, and promyelocytes. Blood smears from CBCs yielding IG's will be scanned manually for concordance. If this scan disagrees with the automated IG or if promyelocytes are noted, a manual differential will be performed. Immature Gran Absolute 0.04 0.00 - 0.04 x10(3)/[facility]ORY Blood 05/18/2022 3:34 AM EDT 05/18/2022 3:48 AM EDT Narrative Resulting Agency Comment Spec In Lab Edward Rodríguez MD HEMATOLOGY ORDER NICK Performing Organization Address City/State/[facility] Co de Phone Number [facility] [place] [address] * (ABNORMAL) Hemogram (05/18/2022 3:34 AM EDT) White Blood Cell 8.8 4.0 - 9.5 x10(3)/[facility] LAB[facility]ATORY Red Blood Cell 3.45(L) 4.58 - 5.54 x10(6)/[facility]ORY Hemoglobin 11.2(L) 13.7 - 16.5 g/dL [facility] Hematocrit 33.0(L) 40.5 - 48.5 % [facility] Mean Cell Volume 95.7(H) 82.9 - 93.1 fL [facility] Mean Cell Hemoglobin 32.5(H) 27.5 - 32.1 pg [facility] Mean Cell Hemoglobin Concentration 33.9 32.0 - 35.7 g/dL [facility] Platelet 130(L) 145 - 357 x10(3)/[facility]ATORY RDW Standard Deviation 46.2(H) 36.0 - 45.0 fL [facility] RDW coefficient of variation 13.2 11.4 - 13.8 % [facility] Mean Platelet Volume 10.8 7.6 - 12.9 fL [facility] NRBC% auto 0.0 % [facility] NRBC Absolute 0.000 0.000 - 0.000 x10(3)/mc L [facility] Blood 05/18/2022 3:34 AM EDT 05/18/2022 3:48 AM EDT Narrative Resulting Agency Comment Spec In Lab Edward Rodríguez MD HEMATOLOGY ORDER NICK Performing Organization Address [facility] [place] [address] * Heparin (unfractionated) Level (05/18/2022 3:34 AM EDT) UF Heparin 0.59 IU/mL [facility] Comment: Heparin (anti-Xa) levels should [...] MD HEMATOLOGY ORDERABLE S Performing Organization Address City/[facility]/ZIP Co de Phone Number [facility] [place] [address] * Magnesium (05/17/2022 3:33 AM EDT) Magnesium 0.76 0.69 - 1.07 mmol/L [facility] Blood Venous Draw / Unknown 05/17/2022 3:33 AM EDT 05/17/2022 4:05 AM EDT Narrative Resulting Agency Comment Spec In Lab Dottie Hill APRN CHEMISTRY ORDERABL ES [facility] [place] [address] * (ABNORMAL) Basic Metabolic Panel (non-fasting) (05/17/2022 3:33 AM EDT) Glucose 158 65 - 199 mg/dL [facility] Comment:Diabetes: >=200 mg/d L plus symptoms Blood Urea Nitrogen 12 10 - 20 mg/dL [facility] Creatinine 0.74(L) 0.80 - 1.50 mg/dL [facility] Sodium 137 135 - 145 mmol/L [facility] Potassium 3.5 3.5 - 5.0 mmol/L [facility] Comment: Please note: ??Patients with WBC >100,000 may have falsely elevated Potassium levels. ??For accurate Potassium quantification in these patients send serum separator tube (gold top) for subsequent determinations. ??Contact the Clinical Chemistry Laboratory if there are any questions. Chloride 102 98 - 107 mmol/L [facility] Carbon Dioxide 25 22 - 31 mmol/L [facility] Anion Gap 10 5 - 15 mmol/L [facility] Calcium 8.4(L) 8.5 - 10.5 mg/dL [facility] Est Glomerular Filtration Rate 92 >=60 mL/min/1. 73 m?? [facility] Comment: This patient's [...] In Lab Fito Summers MD CHEMISTRY ORDERABLES [facility] [place] [address] * (ABNORMAL) Differential, Automated (05/17/2022 3:33 AM EDT) Neutrophil % 65.5 % [facility] Neutrophil Absolute 6.84(H) 1.70 - 6.10 x10(3)/mc L [facility] Lymph % 19.7 % [facility] Lymphocytes Abs 2.1 0.9 - 3.2 x10(3)/mc L [facility] Monocyte % 13.1 % [facility] Monocyte Abs 1.4(H) 0.3 - 0.9 x10(3)/mc L [facility] Eos % 0.6 % [facility] Eosinophils Abs 0.1 0.0 - 0.4 x10(3)/mc L [facility] Basophil % 0.6 % [facility] Baso Absolute 0.1 0.0 - 0.1 x10(3)/mc L [facility] Immature Gran % 0.50 % [facility] Comment: Immature granulocytes(IG's)percentage and absolute count will include metamyelocytes, myelocytes, and promyelocytes. Blood smears from CBCs yielding IG's will be scanned manually for concordance. If this scan disagrees with the automated IG or if promyelocytes are noted, a manual differential will be performed. Immature Gran Absolute 0.05(H) 0.00 - 0.04 x10(3)/ L [facility] Blood 05/17/2022 3:33 AM EDT 05/17/2022 3:53 AM EDT Narrative Resulting Agency Comment Spec In Lab Edward Rodríguez MD HEMATOLOGY ORDER NICK Performing Organization Address City/State/[facility] Co de Phone Number [facility] [place] [address] * (ABNORMAL) Hemogram (05/17/2022 3:33 AM EDT) White Blood Cell 10.4(H) 4.0 - 9.5 x10(3)/[facility]ATORY Red Blood Cell 3.72(L) 4.58 - 5.54 x10(6)/[facility]ORY Hemoglobin 12.0(L) 13.7 - 16.5 g/dL [facility] Hematocrit 36.4(L) 40.5 - 48.5 % [facility] Mean Cell Volume 97.8(H) 82.9 - 93.1 [facility] Mean Cell Hemoglobin 32.3(H) 27.5 - 32.1 pg [facility] Mean Cell Hemoglobin Concentration 33.0 32.0 - 35.7 g/dL [facility] Platelet 149 145 - 357 x10(3)/[facility]ATORY RDW Standard Deviation 48.7(H) 36.0 - 45.0 [facility] RDW coefficient of variation 13.5 11.4 - 13.8 % [facility] Mean Platelet Volume 10.6 7.6 - 12.9 [facility] NRBC% auto 0.0 % [facility] NRBC Absolute 0.000 0.000 - 0.000 x10(3)/[facility] Blood 05/17/2022 3:33 AM EDT 05/17/2022 3:53 AM EDT Narrative Resulting Agency Comment Spec In Lab Edward Rodríguez MD HEMATOLOGY ORDER NICK Performing Organization Address [facility]/ZIP Co de Phone Number [facility] [place] [address] * (ABNORMAL) Urinalysis Microscopic Exam (05/16/2022 11:15 PM EDT) RBC, Urine 8(H) 0 - 3 /HPF [facility] WBC, Urine 2 0 - 3 /HPF [facility] Clean Catch Urine 05/16/2022 11:15 PM EDT 05/16/2022 11:30 PM EDT Narrative Resulting Agency Comment Spec In Lab Barbie Patiño MD URINE ORDERABLES Performing Organization Address [facility] Co de Phone Number [facility] [place] [address] * (ABNORMAL) Urinalysis with reflex Culture (05/16/2022 11:15 PM EDT) Glucose, Urine Dipstick Negative Negative mg/dL [facility] Protein, Urine Dipstick Negative Negative mg/dL [facility] Bilirubin, Urine Dipstick Negative Negative mg/dL [facility] Comment: Clinical correlation required for positive Urine Bilirubin results as false positive may occur with some drugs and drug related products. If a false positive is suspected a serum total bilirubin should be considered if clinically indicated. Urobilinogen, Urine Dipstick Normal Normal mg/dL [facility] pH, Urn (dipstick) 6.0 5.0 - 8.0 [facility] Blood, Urine Dipstick Small(A) Negative mg/dL [facility] Ketone, Urine Dipstick Trace(A) Negative mg/dL [facility] Nitrite, Urine Dipstick Negative Negative [facility] Leukocytes, Urine Dipstick Negative Negative [facility] Appearance, Urine Dipstick Clear Clear [facility] Specific [place] Urine Automated 1.021 1.005 - 1.030 [facility] Color, Urine Dipstick Yellow Yellow [facility] Reflex to Culture No [facility] Clean Catch Urine 05/16/2022 11:15 PM EDT 05/16/2022 11:30 PM EDT Narrative Resulting Agency Comment Spec In Lab Fito Summers MD URINE ORDERABLES Performing Organization Address [facility]/ZIP [place] [address] * Heparin (unfractionated) Level (05/16/2022 10:59 PM EDT) UF Heparin 0.65 IU/mL [facility] Comment: Specimen drawn more than [...] MD HEMATOLOGY ORDERABLE S Performing Organization Address City/[facility]/ZIP Co de Phone Number [facility] [place] [address] * XR Chest One View (05/16/2022 9:14 [...] questions please contact the health child care that requested your imaging first. ? [...] who have questions please contactthe health child care that requested your imaging first. Fito Summers MD IMG DX ORDERABLES * EKG 12 Lead (05/16/2022 8:57 PM EDT) Ventricular rate 117 BPM MUSE SYSTEM QRS Duration 112 ms MUSE SYSTEM Q-T Interval 346 ms MUSE SYSTEM QTC Calculated (Bezet) 482 ms MUSE SYSTEM Calculated R [place] -48 degrees MUSE SYSTEM Calculated T [place] 111 degrees MUSE SYSTEM INTERPRETATION Atrial fibrillation [...] 4:34 PM EDT) UF Heparin 0.53 IU/mL [facility] Comment: Heparin (anti-Xa) levels should [...] Lab Fito Summers MD HEMATOLOGY ORDERABLE S [facility] [address] [place] [address] * ECHO COMPLETE W CONTRAST (05/16/2022 12:49 PM EDT) EF 28 HEARTLAB SYSTEM Anatomical Region Laterality Modality Cardiac Other 05/16/2022 11:2 2 AM EDT Narrative 05/16/2022 1:54 PM EDT ?[facility] ? [facility] ?[address] ? [place] [address] ?Voice: ?Fax: ? Echocardiogram Report Name: KOKO BAH ?Study Date: 05/16/2022 11:22 AM ? Patient Location: [facility] 0[address] B : 1940 ? Height: 67.5 in ? Account: [id number] Age: 81 yrs ? Weight: 176 lb Gender: Male ?BSA: 1.9 m2 Ordering Physician: FITO SUMMERS Referring Physician: MAIK FLORIAN Performed By: Jolene Bernard RDCS Exam Location: [facility]. Interpretation Summary Left ventricle is mildly [...] and LV systolic dysfunction are new. Procedure Complete-[id number]. Image enhancement Optison was used for both [...] Procedure Note Gladys Jaime MD - 05/16/2022 [facility] [place] [address] Voice: Fax: Echocardiogram Report Name: BAHKOKO Study Date: 1:22 AM Patient Location: [id number] : 1940 Height: 67.5 in Account: [id number] Age: 81 yrs Weight: 176 lb Gender: Male BSA: 1.9 m2 Ordering Physician: FITO SUMMERS Referring Physician: MAIK FLORIAN Performed By: Jolene Bernard RDCS Exam Location: [facility]. Interpretation Summary Left ventricle is mildly [...] moderate and LV systolicdysfunction are new. Procedure Complete-[id number]. Image enhancement Optison was used for both [...] 3:01 AM EDT) Neutrophil % 78.8 % [facility] Neutrophil Absolute 9.11(H) 1.70 - 6.10 x10(3)/mc L [facility] Lymph % 9.4 % [facility] Lymphocytes Abs 1.1 0.9 - 3.2 x10(3)/ L [facility] Monocyte % 10.9 % [facility] Monocyte Abs 1.3(H) 0.3 - 0.9 x10(3)/ L [facility] Eos % 0.0 % [facility] Eosinophils Abs 0.0 0.0 - 0.4 x10(3)/ L [facility] Basophil % 0.3 % [facility] Baso Absolute 0.0 0.0 - 0.1 x10(3)/[facility] LAB[facility]ATORY Immature Gran % 0.60 % [facility] Comment: Immature granulocytes(IG's)percentage and absolute count will include metamyelocytes, myelocytes, and promyelocytes. Blood smears from CBCs yielding IG's will be scanned manually for concordance. If this scan disagrees with the automated IG or if promyelocytes are noted, a manual differential will be performed. Immature Gran Absolute 0.07(H) 0.00 - 0.04 x10(3)/ L [facility] Blood 05/16/2022 3:01 AM EDT 05/16/2022 3:36 AM EDT Narrative Resulting Agency Comment Spec In Lab Erin Garza MD HEMATOLOGY ORDERABLE S [facility] [place] [address] * (ABNORMAL) Hemogram (05/16/2022 3:01 AM EDT) White Blood Cell 11.6(H) 4.0 - 9.5 x10(3)/ L [facility] Red Blood Cell 3.62(L) 4.58 - 5.54 x10(6)/ L [facility] Hemoglobin 12.0(L) 13.7 - 16.5 g/dL [facility] Hematocrit 35.3(L) 40.5 - 48.5 % [facility] Mean Cell Volume 97.5(H) 82.9 - 93.1 fL [facility] Mean Cell Hemoglobin 33.1(H) 27.5 - 32.1 pg [facility] Mean Cell Hemoglobin Concentration 34.0 32.0 - 35.7 g/dL [facility] Platelet 151 145 - 357 x10(3)/mc L [facility] RDW Standard Deviation 47.6(H) 36.0 - 45.0 fL [facility] RDW coefficient of variation 13.3 11.4 - 13.8 % [facility] Mean Platelet Volume 10.5 7.6 - 12.9 [facility] NRBC% auto 0.0 % [facility] NRBC Absolute 0.000 0.000 - 0.000 x10(3)/mc L [facility] Blood 05/16/2022 3:01 AM EDT 05/16/2022 3:36 AM EDT Narrative Resulting Agency Comment Spec In Lab Erin Garza MD HEMATOLOGY ORDERABLE S Performing Organization Address City/[facility] Co de Phone Number [facility] [place] [address] * Phosphorus (05/16/2022 3:01 AM EDT) Phosphorus 3.7 2.5 - 4.5 mg/dL [facility] Blood 05/16/2022 3:01 AM EDT 05/16/2022 3:36 AM EDT Narrative Resulting Agency Comment Spec In Lab Fito Summers MD CHEMISTRY ORDERABLES Performing Organization Address [facility]/ZIP Co de Phone Number [facility] [place] [address] * Magnesium (05/16/2022 3:01 AM EDT) Magnesium 0.77 0.69 - 1.07 mmol/L [facility] Blood 05/16/2022 3:01 AM EDT 05/16/2022 3:36 AM EDT Narrative Resulting Agency Comment Spec In Lab Fito Summers MD CHEMISTRY ORDERABLES [facility] [place] [address] * (ABNORMAL) Basic Metabolic Panel (non-fasting) (05/16/2022 3:01 AM EDT) Glucose 222(H) 65 - 199 mg/dL [facility] Comment:Diabetes: >=200 mg/d L plus symptoms Blood Urea Nitrogen 12 10 - 20 mg/dL [facility] Creatinine 0.66(L) 0.80 - 1.50 mg/dL [facility] Sodium 138 135 - 145 mmol/L [facility] Potassium 4.5 3.5 - 5.0 mmol/L [facility] Comment: Please note: ??Patients with WBC >100,000 may have falsely elevated Potassium levels. ??For accurate Potassium quantification in these patients send serum separator tube (gold top) for subsequent determinations. ??Contact the Clinical Chemistry Laboratory if there are any questions. Chloride 108(H) 98 - 107 mmol/L [facility] Carbon Dioxide 22 22 - 31 mmol/L [facility] Anion Gap 8 5 - 15 mmol/L [facility] Calcium 8.2(L) 8.5 - 10.5 mg/dL [facility] Est Glomerular Filtration Rate 95 >=60 mL/min/1. 73 m?? [facility] Comment: This patient's [...] In Lab Fito Summers MD CHEMISTRY ORDERABLES [facility] [place] [address] * (ABNORMAL) BLOOD GAS 2 ARTERIAL (05/15/2022 3:33 PM EDT) pH, Arterial 7.33(L) 7.35 - 7.45 [facility] PCO2, Arterial 41 35 - 45 mmHg [facility] PO2, Arterial 131(H) 85 - 104 mmHg [facility] Bicarbonate, Arterial 21.1 20.0 - 26.0 mmol/L [facility] Base Excess, Arterial -4.8(L) -3.0 - 3.0 mmol/L [facility] Hgb Blood Gas 13.4(L) 13.7 - 16.5 g/dL [facility] Oxyhemoglobin, Arterial 96.9 94.0 - 97.0 % [facility] Carboxyhemoglob in, Arterial 1.4 % [facility] Comment: Nonsmokers: 0.5-1.5% COHB Smokers: Variable, but usually less than 10% Toxic: 20-30% COHB Lethal: Greater than 60% COHB Methemoglobin, Arterial 0.3 <=1.5 % [facility] Na [...] Whole Blood 113(H) 98 - 107 mmol/L [facility] Gluc Whole Bld 136 65 - 199 mg/dL [facility] Comment:Diabetes: >=200 mg/d L plus symptoms. Lactate WB 2.0 0.5 - 2.2 mmol/L [facility] Blood 05/15/2022 3:33 PM EDT 05/15/2022 3:[address] Jamel Torre MD POINT OF CARE TEST O RDERABLES [facility] [place] [address] * (ABNORMAL) BLOOD GAS 2 ARTERIAL (05/15/2022 2:06 PM EDT) pH, Arterial 7.39 7.35 - 7.45 [facility] PCO2, Arterial 35 35 - 45 mmHg [facility] PO2, Arterial 135(H) 85 - 104 mmHg [facility] Bicarbonate, Arterial 20.8 20.0 - 26.0 mmol/L [facility] Base Excess, Arterial -4.2(L) -3.0 - 3.0 mmol/L [facility] Hgb Blood Gas 14.5 13.7 - 16.5 g/dL [facility] Oxyhemoglobin, Arterial 97.2(H) 94.0 - 97.0 % [facility] Carboxyhemoglob in, Arterial 1.2 % [facility] Comment: Nonsmokers: 0.5-1.5% COHB Smokers: Variable, but usually less than 10% Toxic: 20-30% COHB Lethal: Greater than 60% COHB Methemoglobin, Arterial 0.3 <=1.5 % [facility] Na Whole Blood 140 135 - 145 mmol/L [facility] K Whole Blood 3.8 3.5 - 5.0 mmol/L [facility] Comment: Please note: Patients with WBC >100,000 may have falsely elevated Potassium levels. Contact the Clinical Chemistry Laboratory if there are any questions. ICa Whole Blood 1.12(L) 1.15 - 1.33 mmol/L [facility] Comment: Note: ??Total bilirubin higher than 20 mg/dL may lead to falsely low ionized calcium. CL Whole Blood 109(H) 98 - 107 mmol/L [facility] Gluc Whole Bld 152 65 - 199 mg/dL [facility] Comment:Diabetes: >=200 mg/d L plus symptoms. Lactate WB 1.5 0.5 - 2.2 mmol/L [facility] Blood 05/15/2022 2:06 PM EDT 05/15/2022 2:[address] Jamel Torre MD POINT OF CARE TEST O RDERABLES Performing Organization Address [facility]/ZIP Co de Phone Number [facility] [place] [address] * (ABNORMAL) Prothrombin Time (05/15/2022 12:30 PM EDT) Prothrombin Time 12.9(H) 9.4 - 12.5 sec [facility] International Normalization Ratio 1.1 [facility] Comment: An INR [...] DO HEMATOLOGY ORDERABLE S Performing Organization Address [facility]/ZIP Co de Phone Number [facility] [place] [address] * (ABNORMAL) APTT (05/15/2022 12:30 PM EDT) Partial Thromboplastin Time 76(H) 25 - 37 sec [facility] [...] DO HEMATOLOGY ORDERABLE S Performing Organization Address [facility]/ZIP Co de Phone Number [facility] [place] [address] * Gold Tube HOLD (05/15/2022 12:20 PM EDT) [facility] Gold Hold Sample in lab. [facility] Blood No Charge / Unknown 05/15/2022 12:20 PM EDT 05/15/2022 12:20 PM EDT Lc TRIPP CHEMISTRY ORDERABLES Performing Organization Address [facility]/ZIP Co de Phone Number [facility] [place] [address] * Type and Screen Validity (05/15/2022 12:00 PM EDT) T&S only valid at [facility] Comment:This Type and Screen result is only valid at the [facility] Blood 05/15/2022 12:0 0 PM EDT 05/15/2022 12:17 PM EDT Narrative Resulting Agency Comment Spec In Lab Lc TRIPP BLOOD BANK LAB ORDER NICK Performing Organization Address City/[facility]/ZIP Co de Phone Number [facility] [place] [address] * ABORH Recheck Status (05/15/2022 12:00 PM EDT) ABORH Recheck Order Order Placed [facility] ABORH Type Recheck Complete [facility] Blood 05/15/2022 12:0 0 PM EDT 05/15/2022 12:17 PM EDT Narrative Resulting Agency Comment Spec In Lab Lc TRIPP BLOOD BANK LAB ORDER NICK [facility] [place] [address] * CK (05/15/2022 12:00 PM EDT) Creatine Kinase 87 0 - 200 unit/L [facility] Blood Venous Draw / Unknown 05/15/2022 12:00 PM EDT 05/15/2022 12:19 PM EDT Narrative Resulting Agency Comment Spec In Lab Fito Summers MD CHEMISTRY ORDERABLES [facility] [place] [address] * Antibody screen (05/15/2022 12:00 PM EDT) Ab Screen Interp Negative [facility] Expires at [id number] on: 05/18/2022 [facility] Blood 05/15/2022 12:0 0 PM EDT 05/15/2022 12:17 PM EDT Narrative Resulting Agency Comment Spec In Lab Lc TRIPP BLOOD BANK LAB ORDER NICK [facility] [place] [address] * ABO/Rh Typing (05/15/2022 12:00 PM EDT) ABORH Type O Pos [facility] Blood 05/15/2022 12:0 0 PM EDT 05/15/2022 12:17 PM EDT Narrative Resulting Agency Comment Spec In Lab Lc TRIPP BLOOD BANK LAB ORDER NICK [facility] [place] [address] * (ABNORMAL) Differential, Automated (05/15/2022 12:00 PM EDT) Neutrophil % 79.4 % [facility] Neutrophil Absolute 7.49(H) 1.70 - 6.10 x10(3)/ L [facility] Lymph % 11.3 % [facility] Lymphocytes Abs 1.1 0.9 - 3.2 x10(3)/[facility] Monocyte % 7.8 % [facility] Monocyte Abs 0.7 0.3 - 0.9 x10(3)/ L [facility] Eos % 0.6 % [facility] Eosinophils Abs 0.1 0.0 - 0.4 x10(3)/[facility] Basophil % 0.6 % [facility] Baso Absolute 0.1 0.0 - 0.1 x10(3)/ L [facility] Immature Gran % 0.30 % [facility] Comment: Immature granulocytes(IG's)percentage and absolute count will include metamyelocytes, myelocytes, and promyelocytes. Blood smears from CBCs yielding IG's will be scanned manually for concordance. If this scan disagrees with the automated IG or if promyelocytes are noted, a manual differential will be performed. Immature Gran Absolute 0.03 0.00 - 0.04 x10(3)/ L [facility] Blood 05/15/2022 12:0 0 PM EDT 05/15/2022 12:19 PM EDT Narrative Resulting Agency Comment Spec In Lab Lc TRIPP HEMATOLOGY ORDERABLE S [facility] [place] [address] * (ABNORMAL) Hemogram (05/15/2022 12:00 PM EDT) White Blood Cell 9.4 4.0 - 9.5 x10(3)/mc L [facility] Red Blood Cell 4.48(L) 4.58 - 5.54 x10(6)/mc L [facility] Hemoglobin 14.5 13.7 - 16.5 g/dL [facility] Hematocrit 42.4 40.5 - 48.5 % [facility] Mean Cell Volume 94.6(H) 82.9 - 93.1 fL [facility] Mean Cell Hemoglobin 32.4(H) 27.5 - 32.1 pg [facility] Mean Cell Hemoglobin Concentration 34.2 32.0 - 35.7 g/dL [facility] Platelet 209 145 - 357 x10(3)/mc L [facility] RDW Standard Deviation 45.9(H) 36.0 - 45.0 [facility] RDW coefficient of variation 13.1 11.4 - 13.8 % [facility] Mean Platelet Volume 10.5 7.6 - 12.9 [facility] NRBC% auto 0.0 % [facility] NRBC Absolute 0.000 0.000 - 0.000 x10(3)/mc L [facility] Blood 05/15/2022 12:0 0 PM EDT 05/15/2022 12:19 PM EDT Narrative Resulting Agency Comment Spec In Lab Lc TRIPP HEMATOLOGY ORDERABLE S [facility] [place] [address] * (ABNORMAL) Basic Metabolic Panel (non-fasting) (05/15/2022 12:00 PM EDT) Glucose 203(H) 65 - 199 mg/dL [facility] Comment:Diabetes: >=200 mg/d L plus symptoms Blood Urea Nitrogen 16 10 - 20 mg/dL [facility] Creatinine 0.84 0.80 - 1.50 mg/dL [facility] Sodium 141 135 - 145 mmol/L [facility] Potassium 4.7 3.5 - 5.0 mmol/L [facility] Comment: Please note: ??Patients with WBC >100,000 may have falsely elevated Potassium levels. ??For accurate Potassium quantification in these patients send serum separator tube (gold top) for subsequent determinations. ??Contact the Clinical Chemistry Laboratory if there are any questions. Chloride 107 98 - 107 mmol/L [facility] Carbon Dioxide 23 22 - 31 mmol/L [facility] Anion Gap 11 5 - 15 mmol/L [facility] Calcium 8.5 8.5 - 10.5 mg/dL [facility] Est Glomerular Filtration Rate 89 >=60 mL/min/1. 73 m?? [facility] Comment: This patient's [...] In Lab Jhonny Morales DO CHEMISTRY ORDERABLES [facility] [place] [id number] documented in this encounter Visit Diagnoses Not [...] AM EDT 1,000 mcg gelatin adsorbable 100 (Gelfoam) sponge ONCE PRN, Starting on Fri05/15/22 at 1428, Until Fri05/21/22 at 1743, Intra-Operative (Intra-Procedure), Routine Given 05/15/2022 2:28 PM EDT 1 each 19- Surgical Site ipratropium-albuteroL (Duoneb) 0.5 mg-3 mg(2.5 mg base)/3 [...] 8:38 AM EDT 100 mg thrombin (Bovine) (Thrombinar) kit ONCE PRN, Starting on Fri05/15/22 at 1428, Until Fri05/21/22 at 1743, Intra-Operative (Intra-Procedure) Given 05/15/2022 2:28 PM EDT 20,000 Units 19- Surgical Site valsartan (Diovan) tablet 40 mg 40 mg, [...] Routine 0816 (Given - Provider: Etta Don, DION) clopidogreL (Plavix) tablet 75 mg 75 mg, [...] area)1955 (JAN Unhold - Provider: Admin Adt) 15 (Given - Provider: Etta Don RN) metoprolol [...] 0817 (Given - Provider: Etta Don, DION) metoprolol tartrate (Lopressor) tablet 12.5 mg 12.5 mg, Oral, EVERY 6 HOURS SCHEDULED, First dose (after last modification) on Fri05/21/22 at 1200, Until Discontinued, Routine 1136 (Given - Provider: Etta Don, DION) multivitamin with minerals (Thera M) tablet 1 tablet 1 tablet, Oral, DAILY, First dose on Brandi 05/16/22 at 0900, Until Discontinued, Routine 0838 (Given - Provider: Caroline Bah RN) 0852 (Given - Provider: Barbie Joyce, DION)1750 (JAN Hold - Provider: Admin Adt - Reason: Transfer to a Procedural area)1955 (BANNER Unhold - Provider: Admin Adt) 0816 (Given - Provider: Etta Don, DION) pantoprazole EC (Protonix) tablet 40 mg 40 mg, Oral, DAILY, First dose on Fri05/22/22 at 0900, Until Discontinued, DO NOT CRUSH OR OPEN polyethylene glycoL (Miralax) packet 17 g 17 g, Oral, 2 TIMES DAILY, First dose on Fri05/16/22 at 2100, Until Discontinued, Routine 0838 (Given - Provider: Caroline Bah RN)2100 (Not Given - Provider: Nuris Lester RN - Reason: Patient/family refused) 0900 (Not Given - Provider: Barbie Joyce RN - Reason: NPO)1750 (BANNER Hold - [...] Bah RN) 0853 (Given - Provider: Barbie Joyce, DION)1750 (BANNER Hold - Provider: Admin Adt - Reason: Transfer to a Procedural area)1955 (BANNER Unhold - Provider: Admin Adt) 0816 (Given - Provider: Etta Don, DION) sodium chloride 0.9 % (flush) (BD PosiFlush Normal Saline 0.9) flush 5 mL 5 mL, Intravenous, 2 TIMES DAILY, First dose on Fri05/15/22 at 2245, Until Discontinued, Recovery (Recovery-Hospital Unit), Routine 0900 (Not Given - Provider: Caroline Bah RN - Reason: Contraindicated)2009 (Given - Provider: Nuris Lester, DION) 0900 (Not Given - Provider: Barbie Joyce RN - Reason: See comment - Comment: PIV infusing)2100 (Not Given - Provider: Tere Blankenship, RN - Reason: Order parameters not met - Comment: infusing) 0819 (Given - Provider: Etta Don, DION) tamsulosin (Flomax) capsule 0.4 mg 0.4 mg, Oral, DAILY, First dose on Brandi 05/16/22 at 0900, Until Discontinued, DO NOT CRUSH OR OPEN, Routine 0838 (Given - Provider: Caroline Bah RN) 0853 (Given - Provider: Barbie Joyce, DION)1750 (JAN Hold - Provider: Admin Adt - Reason: Transfer to a Procedural area)1955 (JAN Unhold - Provider: Admin Adt) 816 (Given - Provider: Etta Don RN) thiamine (Vitamin B1) tablet 100 mg 100 mg, Oral, DAILY, First dose on Brandi 05/16/22 at 0900, Until Discontinued, Routine 0838 (Given - Provider: Caroline Bah RN) 0853 (Given - Provider: Barbie Joyce, DION)1750 (MAR Hold - Provider: Admin Adt - Reason: Transfer to a Procedural area)1955 (JAN Unhold - Provider: Admin Adt) 08 (Given - Provider: Etta Don, DION) valsartan (Diovan) tablet 40 mg 40 mg, Oral, 2 TIMES DAILY, First dose on 05/18/22 at 2100, Until Discontinued 0838 (Given - Provider: Caroline Bah RN)2008 (Given - Provider: Nuris Lester, DION) 0853 (Given - Provider: Barbie Joyce RN)1750 (JAN Hold - Provider: Admin Adt - Reason: Transfer to a Procedural area)1955 (MAR Unhold - Provider: Admin Adt)2005 (Given - Provider: Tere Blankenship, DION) 0816 (Given - Provider: Etta Don RN) [...] Heparin UFH Level - Per Protocol, Routine 1935 (New Bag - Provider: Nuris Lester RN) 1600 (New Bag - Provider: Barbie Joyce RN)1750 (JAN Hold - Provider: Admin Adt - Reason: Transfer to a Procedural area)1955 (JAN Unhold - Provider: Admin Adt)1999 (Not Given - Provider: Tree Blankenship, DION - Reason: Contraindicated - Comment: TR band in place) 218 (Restarted - Provider: Tere Blankenship RN - Comment: 4 hours since tr band off, per MD patiño)1301 (Rate/Dose Verify - Provider: Etta Don, RN)1742 (Due: Stopped) sodium chloride 0.9% infusion () 150 mL/hr, Intravenous, CONTINUOUS, Starting on Fri05/20/22 at 1915, Until Fri05/20/22 at 2214, Recovery (Recovery-Hospital Unit) 1900 (Continued Bag - Provider: Cassy Schultz, RN)2199 (Stopped - Provider: Tere Blankenship RN) PRN Medication Order 05/19/2022 05/20/2022 05/21/2022 acetaminophen (Tylenol) tablet 650 mg 650 mg, Oral, EVERY 6 HOURS PRN, Starting on Branid 05/16/22 at 1606, Until Fri05/21/22 at 1743, Pain, Maximum dose of acetaminophen is 4000 mg from all sources in 24 hours. When ordered for pain, acetaminophen should be given even when other ordered pain medications are indicated. , Routine 175 (BANNER Hold - Provider: Admin Adt - Reason: Transfer to a Procedural area)1955 (BANNER Unhold - Provider: Admin Adt) alum-mag hydroxide-simeth (Maalox) (40 mg-40 mg-4 mg/mL) oral liquid 10 mL 10 mL, Oral, 3 TIMES DAILY PRN, Starting on Fri05/20/22 at 1850, Until Fri05/21/22 at 1743, Heartburn, Routine 190 (Given - Provider: Cassy Schultz, DION - Comment: given by other) aspirin chewable tablet (CANCELED) ONCE PRN, Starting on Fri05/20/22 at 1746, Until Fri05/20/22 at 1842, Intra-Operative (Intra-Procedure), Routine 174 (Given - Provider: Flavia Schuler, DION) bisacodyL (Dulcolax) suppository 10 mg 10 mg, Rectal, DAILY PRN, Starting on Fri05/16/22 at 1604, Until Fri05/21/22 at 1743, Constipation, Routine 175 (JAN Hold - Provider: Admin Adt - Reason: Transfer to a Procedural area)1955 (JAN Unhold - Provider: Admin Adt) clopidogreL (Plavix) tablet (CANCELED) ONCE PRN, Starting on Fri05/20/22 at 1746, Until Fri05/20/22 at 1842, Intra-Operative (Intra-Procedure), Routine 1745 (Given - Provider: Flavia Schuler RN) fentaNYL [...] RN)1745 (Given - Provider: Negra Bailey RN) iohexoL (Omnipaque) (350 mg/mL) solution (CANCELED) ONCE [...] area)1955 (BANNER Unhold - Provider: Admin Adt) midazolam (pf) [...] area)1955 (BANNER Unhold - Provider: Admin Adt) sodium chloride [...] Routine documented in this encounter Care Teams Media Relations Director Relationship Specialty Start Date End Date Bobby Das MD [address] [place] [address] [place] [phone] PCP - General 10/02/10 documented as of this encounter
--- OUTSIDE RECORDS SUMMARY | 2024-09-17 01:33 | XMS_ITS | Encounter Summary ---
[place] [address] Care Team Providers Care Academic Services Coordinator Name Role Phone Bobby Das MD Primary Care Provider [phone] Reason for Referral * Diagnostic Test (Routine) - Closed Specialty Diagnoses / Procedures Referred By Contac t Referred To Contact Radiology Diagnoses Compression fracture of T9 vertebra, initial encounter Procedures IR Vertebroplasty Thoracic Single Level Alphonso Esquivel [facility] [place] [address] [place] [address] Referral ID Status Reason Start Date Expiration Date V isits Requested Visits Authorized [id number] Closed Specialty Service Requested 10/13/2020 04/13/2022 1 1 Reason for Visit * Diagnostic Test (Routine) - Closed Specialty Diagnoses / Procedures Referred By Contac t Referred To Contact Radiology Diagnoses Compression fracture of T9 vertebra, initial encounter Procedures IR Vertebroplasty Thoracic Single Level Alphonso Esquivel [facility] [place] [address] [facility] [place] [address] Referral ID Status Reason Start Date Expiration Date V isits Requested Visits Authorized [id number] Closed Specialty Service Requested 10/13/2020 04/13/2022 1 1 Encounter Details Date Type Department Care Team (Latest Contact Info) Description 10/25/2020 6:44 AM EST - 10/25/2020 11:59 PM EST Hospital [place] [address] Alphonso Esquivel, [facility] [place] [address] Compression fracture of T9 vertebra, initial encounter Discharge Disposition: Home Social History Tobacco Use [...] Comments Blood Pressure 87/61 10/25/2020 9:30 AM EST aasymptomatic, okay per pastel to go home Pulse 78 10/25/2020 9:00 AM EST Temperature 36.7 ??C (98 ??F) 10/25/2020 9:1 0 AM EST Respiratory Rate 12 10/25/2020 9:30 AM EST Oxygen Saturation 98% 10/25/2020 9:3 0 AM EST Inhaled Oxygen Concentration - - Weight - - Height - - Body Mass Index - - documented in this encounter Discharge Instructions * Discharge Instructions* Keisha Vargas RN - 10/25/2020 9:13 AM EST [facility] Discharge Instructions for Vertebroplasty Your vertebroplasty was performed at T9 level(s) Activity Level: Rest for the remainder of the day today. Do not lift anything heavier than a gallonof milk for at least three days, then gradually increase your activity as tolerated. Bandage: A small bandage is present at the puncture site on your back and should remain in place for 24 hours, then can be removed. You may shower while the dressing is in place. No swimming, tub baths or whirlpools for one week. When to call [...] Please call with any questions or concerns. If it is during regular office hours, please call [phone]. If it is after regular office hours, or on weekends or holidays, please call [phone] and ask to speak to the Nursing Executive chapter relations administrator for Interventional Radiology. XXX You have received medication [...] Sig Dispensed Refills Start Date End Date carboxymethylcellulose (REFRESH PLUS) 0.5 % Dropperette Apply to eye 3 times daily as needed. tamsulosin (FLOMAX) 0.4 mg Capsule Take 0.4 mg by mouth daily. CRESTOR 40 mg Tablet Take 40 mg by mouth daily. 09/13/2016 MULTIVITAMIN (MULTIPLE VITAMIN ORAL) Take 1 tablet by mouth daily. ascorbic acid, vitamin C, (VITAMIN C) 1,000 mg Tablet Take 1,000 mg by mouth daily. 09/04/2020 11/12/2023 sildenafiL (VIAGRA) 100 mg Tablet Take 100 mg by mouth as needed for Erectile Dysfunction. 11/12/2023 calcium citrate (CALCITRATE) 200 mg (950 mg) Tablet Take 3 tablets by mouth daily. 600mg total 11/12/2023 ibuprofen (ADVIL;MOTRIN) 200 mg Tablet Take 200 mg by mouth every 6 hours as needed for Pain. 05/21/2022 documented as of this encounter Progress Notes * Gladys Corral RN - 10/20/2020 2:57 PM EST ANGIO NURSING DATABASE Name: ETTA BAH Date of : 1940 AGE: 80 y.o. Address: [address] [place] [address] (home) Mobile: No relevant phone numbers on file. Referring Provider: Alphonso Esquivel REASON FOR VISIT: Order Questions Answers Where will study be performed? [facility] Radiology [120] Is the patient on [...] IV, Fentanyl 200 mcg IV, Midazolam 4 mgIV, Pt tolerated the procedure. Anxious and required above meds. ? 0730 to procedure room 4 via stretcher. Onto table prone. All monitors, O2, safety strap in place. Meds per protocol. Laboratory Results: Lab Results Component Value Date INR 1.0 07/20/2019 Lab Results Component Value Date PLATELET 164 07/20/2019 documented in this encounter H&P Notes * Yifan Soler - 10/25/2020 6:53 AM EST Images from the original note were not included. INTERVENTIONAL RADIOLOGY FOCUSED H&P: Procedure: Planned procedure: T9 biopsy and vertebroplasty The patient's history and physical exam have been reviewed and completed. There has been no interval change from that of the pre-operative history and [...] appropriate) , its benefits and risks, and alternativeswere discussed with the patient. The patient consented [...] plan on Vertebroplasty and biopsy of T9. ?? Labs to be performed day of procedure: Platelet count and coagulation profile the day of the procedure. Medication to STOP: None Sedation: moderate (conscious sedation) Additional medications for procedure: Lidocaine 1% Consent: Pending ?? Alphonso Esquivel, 10/13/2020 2:58 PM Plan: Plan Planned procedure: [...] Procedure Name Priority Date/Time Associated Diagnosis Comments IR VERTEBROPLASTY THORACIC SINGLE LEVEL Routine 10/25/2020 9:07 AM EST Compression fracture of T9 vertebra, initial encounter SURGICAL PATHOLOGY REPORT Routine 10/25/2020 8:26 AM EST SPECIMEN TO PATHOLOGY Routine 10/25/2020 8:26 AM EST documented in this encounter Results * IR Vertebroplasty Thoracic [...] was made and a 13ga introducer needle (Opathica) was advanced through the right pedicle and to the ??T9 vertebral body during an intermittent fluoroscopic guidance. The Opathica biopsy cannula was advanced through the introducer needle and the system was advanced further into the vertebral body. The core biopsy sample was removed and sent in formalin. 10 cc 1% lidocaine was used for local anesthesia of the left pedicle entry site at the skin and periosteum overlying the ??T9 level. A small skin incision was made and a 13ga introducer needle (Opathica) was advanced through the left pedicle and [...] at the skin and periosteum overlying the I6xswnm. A small skin incision was made and a 13ga introducer needle (Opathica)was advanced through the right pedicle and to the T9 vertebral body duringan intermittent fluoroscopic guidance. The Opathica biopsy cannula wasadvanced through the introducer needle and the system was advanced further intothe vertebral body. The core biopsy sample was removed and sent in formalin. 10 cc 1% lidocaine was used for local anesthesia of the left pedicle entrysite at the skin and periosteum overlying the T9 level. A small skin incisionwas made and a 13ga introducer needle (Opathica) was advanced through theleft pedicle and to [...] contact the number below. Alphonso Esquivel DO [facility] IR ORDERABLES * Surgical Pathology Report (10/25/2020 8:26 AM EST) Final Diagnosis [id number] ? Location: [facility] The signing pathologist has (i) examined the relevant preparation(s) for the specimen(s) and (ii) rendered or confirmed the diagnosis(es). . ?Surgical Pathology DIAGNOSIS A - T-9, biopsy: ?- Lamellar and woven bone with intertrabecular mixture changes and mild ? lymphoplasmacytic infiltrate, see discussion Electronically signed by: ??Galo Enamorado MD Verified: ??10/27/2020 ?Dermatopathologist , Bone & Soft Tissue Pathologist Performed at: ??-[facility] Dept. of Pathology, [place], [place] DISCUSSION I see no neoplastic process [...] toto ??in 1 cassette labeled A1. ??kevin 10/27/2020 2:23 PM EST [facility] BONE STRUCTURE / Unknown 10/25/2020 8:26 AM EST 10/25/2020 8:26 AM EST Alphonso Esquivel DO PATHOLOGY/CYTOLOGY O RADHA Performing Organization Address [facility] Co de Phone Number [facility] [place] [address] * Specimen to Pathology (10/25/2020 8:26 AM EST) AP Specimen 10/25/2020 8:26 AM EST 10/25/2020 8:26 AM EST Narrative [facility] - 10/25/2020 8:26 AM EST Specimen requisition ordered. ??Separate Pathology report to follow Alphonso Esquivel DO PATHOLOGY/CYTOLOGY O RADHA Performing Organization Address [facility] Co de Phone Number [facility] [place] [address] documented in this encounter Visit Diagnoses Diagnosis Compression fracture of T9 vertebra, initial encounter documented in this encounter Administered Medications Inactive Administered Medications - up to 3 most recent administrations Medication Order MAR Action Action Date Dose Rate Site ceFAZolin (Ancef) 2 g in dextrose 5% 100 mL infusion 2 g, Intravenous, ONCE, 1 dose, On Fri10/25/20 at 0730, Administer over 30 Minutes, Redose every 3 hours if CrCl is greater than 20. Redose every 8 hours if CrCl is less than 20., Angio/IR (Day of Procedure), Indication for (Active or Suspected): Prophylaxis Given 10/25/2020 7:35 AM EST 2 g 200 mL/hr fentaNYL (pf) (50 mcg/mL) multi-dose injection 25-50 mcg 25-50 mcg, Intravenous, EVERY [...] verbal order., Angio/IR (Intra-Procedure), Routine Given 10/25/2020 8:51 AM EST 50 mcg Given 10/25/2020 8:34 AM EST 50 mcg Given 10/25/2020 8:10 AM EST 50 mcg lidocaine (Xylocaine) 1% (10 mg/mL) injection 10 mg 10 mg, Subcutaneous, ONCE, 1 dose, On Fri10/25/20 at 0730, For use in Interventional Radiology (IR) only for procedure with direct provider supervision and verbal order., Angio/IR (Intra-Procedure), Routine Given 10/25/2020 8:09 AM EST 10 mg midazolam (pf) (Versed) (1 mg/mL) multi-dose injection 0.5-1 mg 0.5-1 mg, Intravenous, EVERY [...] verbal order., Angio/IR (Intra-Procedure), Routine Given 10/25/2020 8:51 AM EST 1 mg Given 10/25/2020 8:33 AM EST 1 mg Given 10/25/2020 8:10 AM EST 1 mg sodium chloride 0.9% infusion 1,000 mL, at 100 mL/hr, Intravenous, CONTINUOUS, Starting on Fri10/25/20 at 0730, Until Fri10/25/20 at 0947, Angio/IR (Day of Procedure) New Bag 10/25/2020 7:30 AM EST 1,000 mLs 100 mL/hr documented in this encounter Care Teams Academic Services Coordinator Relationship Specialty Start Date End Date Bobby Das MD [address] [place] [address] [place] [address] PCP - General 10/02/10 documented as of this encounter
--- OUTSIDE RECORDS SUMMARY | 2024-09-17 01:34 | XMS_ITS | Encounter Summary ---
Author Organization [facility] Address [facility] [place] [address] Care Team Providers Care Nutrition And Dietetics Instructor Name Role Phone Bobby Das MD Primary Care Provider [phone] Reason for Visit * Reason Onset Date Comments Pre Procedure Call 08/01/2015 Encounter Details Date Type Department Care Team (Late st Contact Info) Description 08/01/2015 Telephone Dermatology at [facility] [address] [place] [address] Cassy Jacobson LPN Pre Procedure Call Social History Tobacco Use Types Packs/Day Years Used Date Smoking Tobacco: Some Days Cigarettes 1 50 Smokeless Tobacco: Never Sex and Gender Information Value Date Recorded Sex Assigned at Not on file Gender Identity Not on file Sexual Orientation Not on file documented as of this encounter Miscellaneous Notes * Telephone Encounter - Cassy Jacobson LPN - 07/08/2016 11:32 AM EDT Message left to call our office regarding appointment with Dr. Solo. Cassy Jacobson LPN documented in this encounter Plan of Treatment Not on file documented as of this encounter Visit Diagnoses Not on filedocumented in this encounter Care Teams Nutrition And Dietetics Instructor Relationship Specialty Start Date End Date Bobby Das MD [address] [place] [address] [place] [phone] PCP - General 10/02/10 documented as of this encounter
--- OUTSIDE RECORDS SUMMARY | 2024-09-17 01:34 | XMS_ITS | Encounter Summary ---
Author Organization [facility] Address [facility] [place] [address] Care Team Providers Care Wood Router Hand Name Role Phone Bobby Das MD Primary Care Provider [phone] Encounter Details Date Type Department Care Team (Latest Contact Info) Description 07/25/2015 3:50 PM EDT - 07/25/2015 11:59 PM EDT Hospital [place] [address] Leo Solo MD [facility] DR J[place] [address] Discharge Disposition: Home Social History Tobacco Use [...] Refills Start Date End Date MULTIVITAMIN (MULTIPLE VITAMIN ORAL) Take 1 tablet by mouth daily. rosuvastatin (CRESTOR) 10 mg tablet Take 10 mg by mouth daily. 12/13/2016 fluticasone (FLONASE) 50 mcg/actuation nasal spray 1 spray by Each Nare route daily. 09/18/2018 documented as of this encounter Plan of Treatment Not on file documented as of this encounter Procedures Procedure Name Priority Date/Time Associated Diagnosis Comments SURGICAL PATHOLOGY REPORT Routine 07/25/2015 9:51 AM EDT documented in this encounter Results * Surgical Pathology Report (07/25/2015 9:51 AM EDT) Final Diagnosis The signing pathologist has (i) examined the relevant preparation(s) for the specimen(s) and (ii) rendered or confirmed the diagnosis(es). Accession Number: [id number] . ?Surgical Pathology DIAGNOSIS CONSULTATION CASE Outside slides labeled [id number], collection date 07/03/2015. 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 S ee Discussion. CR-0 07/26/15 LLW 07/27/15 Verified by: ? Glenn Tim MD ?Dermatopatholog ist ?(Electronic Signature) The attending pathologist whose signature appears on this report has reviewed all diagnostic slides and has edited the gross and/or microscopic portion of the report in rendering the final pathologic diagnosis. DISCUSSION This case has been reviewed by Dr. Enamorado, who concurs with the diagnosis. CLINICAL INFORMATION Specimen Submitted: CONSULTATION CASE A - 3 slides labeled [id number], collection date 07/03/2015. [id number] Report to: [facility] Surgical Pathology Department [facility], [facility], 2nd Floor [address], [place] ??[address] SPECIMEN PROCESSING [facility] ([facility]) pathology slide(s) are reviewed. ??Refer to Diagnosis and Specimen Submitted for specific case information. For the full text of the [facility] ([facility]) report(s) please refer to Non-DH Documentation Pathology in the electronic health record (eDH). 07/27/2015 3:42 PM EDT [facility] Consult Case 07/25/2015 9:51 AM EDT 07/25/2015 9:51 AM EDT Leo Solo MD PATHOLOGY/CYTOLOGY O RDERABLES [facility] [place] [id number] documented in this encounter Visit Diagnoses Not on filedocumented in this encounter Care Teams Wood Router Hand Relationship Specialty Start Date End Date Bobby Das MD [address] [place] [address] [place] [address] PCP - General 10/02/10 documented as of this encounter
--- OUTSIDE RECORDS SUMMARY | 2024-09-17 01:34 | XMS_ITS | Encounter Summary ---
Author Organization [facility] Address [facility] [place] [address] Care Team Providers Care Clinical Operations Manager Name Role Phone Bobby Das MD Primary Care Provider [phone] Reason for Visit * Reason Comments Basal Cell Carcinoma Encounter Details Date Type Department Care Team (Late st Contact Info) Description 08/24/2015 8:30 AM EDT Procedure visit Dermatology at [facility] [address] [place] [address] Leo Solo MD [facility] DR JENNY [place] [address] BCC (basal cell carcinoma of skin) Social History Tobacco Use Types Packs/Day Years [...] - documented in this encounter Patient Instructions * Patient Instructions* Etta Burciaga LPN - 08/24/2015 3:23 PM EDT General Post-Operative Instructions Do not drink alcohol or take any medications containing aspirin, ibuprofen, or Vitamin E for the first two days after surgery unless it has been prescribed by a physician. These may increase the change of bleeding. Do not smoke for a minimum [...] every 4-6 hours. Increasing pain, or pain not relieved by Tylenol, should be reported to our office. Infection: Infection is not common when the wound is well cared for. Manele drainage or slight yellowfilm on your bandage or open wound is normal and is not an infection. It is also normal for the edges of the wound to be pink or red, [...] the pressure bandage when you remove it. If blood leaks out of the bandage within the first 48 hours, hold firm pressure directly over the topof the bandage without removing it for 15 [...] common, but usually resolve in 2-3 weeks. Areas of the mouth and eye can last longer. Swelling and bruising can be reduced by applying an ice packover the dressing for 15 minutes out of [...] heart. Bend at the knees and not the waist. If your wound is on your arm [...] to contact us. During regular business hours you can call the clinic at . After 5PM and on weekends, please call the hospital number and ask for the Real Estate Manager transitional kindergarten teacher. Wound Care for Sutured Wounds You should [...] the area under running tap water. Lather gentlywith soap and water, then rinse and blot dry. 6. Apply Vaseline (white petrolatum) or Aquaphor in a thin layer over the suture line. You may use a clean cotton swab to apply the ointment, rolling [...] within 2-3 months. Sometimes a stitch works its way up through the skin. This is not necessarily a problem. If you have any questions about this, please call. If you need any help or have any questions, please call our clinic at . After 5PM and on weekends, please call the hospital number and ask for the Real Estate Manager transitional kindergarten teacher. documented in this encounter Progress Notes * Leo Solo MD - 08/24/2015 3:25 PM EDT Operative Report Patient name: Koko Zamora : 1940 Date: 08/24/2015 Staff Surgeon: Leo Solo MD, PhD Hides Inspector I: Yolanda Rivera, Etta Burciaga, Estefania Momin, Gloria Ferrell MD Computational Biologist: Kourtney Cabrera Pre-operative diagnosis: Basal cell carcinoma Post-operative diagnosis: Basal cell carcinoma Location: Right yazdanism Procedure: Mohs micrographic surgery Indication for Mohs micrographic surgery: Critical anatomic location Stages: 2 Final defect size: 3.6 x 2.0 cm Stage I The nature and purpose of the procedure, associated risks, possible consequences and complications,and alternative forms of treatment were explained in detail. Informed consent and permission to take photographs were obtained. The site was confirmed with the patient/authorized congressional representative/referring physician and a pre-operative time-out was conducted with no unresolved discrepancies noted. Loc al anesthesia was obtained with a buffered solution of 1% lidocaine with 1:100,000 epinephrine. Thesurgical site was prepped and draped in the [...] 08/24/2015 Staff Surgeon: Leo Solo MD, PhD Hides Inspector I: Yolanda Rivera, Estefania Welch Clinical Diagnosis: 3.6 x 2.0 cm surgical defect secondary to Mohs microscopically controlled excision of basal cell carcinoma Location: Right yazdanism Procedure: Transposition flap repair Due to the [...] transposition flap was designed adjacent to the defect. The flap borders were incised down to the [...] and was given both verbal and written instructions on postoperative wound care. Follow up in one week for suture removal. The patient was discharged in good condition. I performed the entire procedure. Leo Solo MD, PhD documented in this encounter Plan of Treatment Not on file documented as of this encounter Visit Diagnoses Diagnosis BCC (basal cell carcinoma of skin) Basal cell carcinoma of skin, site unspecified documented in this encounter Care Teams Clinical Operations Manager Relationship Specialty Start Date End Date Bobby Das MD [address] [place] [address] [place] [address] PCP - General 10/02/10 documented as of this encounter
--- OUTSIDE RECORDS SUMMARY | 2024-09-17 01:34 | XMS_ITS | Encounter Summary ---
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, sequela Closed compression fracture of L1 lumbar vertebra with delayed healing, subsequent encounter Malignant neoplasm of prostate Procedures IR Vertebroplasty Lumbar Multiple Levels IR Vertebral Augmentation Lumbar Single Level Zbigniew Thompson PA [facility] [place] [address] [place] [address] Referral ID Status Reason Start Date Expiration Date V isits Requested Visits Authorized [id number] Closed Specialty Service Requested 07/13/2019 07/12/2020 1 1 * Diagnostic Test (Routine) - Closed Specialty Diagnoses / Procedures Referred By Contac t Referred To Contact Radiology Diagnoses Closed compression fracture of L1 lumbar vertebra with delayed healing, subsequent encounter Malignant neoplasm of prostate Procedures IR Biopsy Spine Zbigniew Thompson PA [facility] [place] [address] [facility] [place] [address] Referral ID Status Reason Start Date Expiration Date V isits Requested Visits Authorized [id number] Closed Specialty Service Requested 07/13/2019 07/12/2020 1 1 Reason for Visit * Reason Comments Back Pain * Consultation (ANDREINA) - Closed Specialty Diagnoses / Procedures Referred By Contac t Referred To Contact [facility] Diagnoses Collapsed vertebra, not elsewhere classified, lumbar region, subsequent encounter for fracture with routine healing Bobby Das MD [address] [place] [address] [place] [address] [facility] [place] [address] Referral ID Status Reason Start Date Expiration Date V isits Requested Visits Authorized [id number] Closed Consult, Test & Treat Connection [facility] 06/30/2019 06/29/2020 1 1 Encounter Details Date Type Department Care Team (Late st Contact Info) Description 07/13/2019 2:40 PM EDT Office Visit [place] [phone] Zbigniew Thompson PA [facility] [place] [address] Closed compression fracture of L1 lumbar vertebra with delayed healing, subsequent encounter; Malignant neoplasm of prostate; 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, sequela Social History Tobacco Use Types Packs/Day Years [...] documented in this encounter Progress Notes * Zbigniew Thompson PA - 07/13/2019 2:40 PM EDT Koko Zamora is a 78-year-old gentleman I am seeing today for evaluation regarding chronic upper lumbar back pain that began over a year ago on May 13, 2019. He tells me that he underwent radiation therapy a few months before that but afterwards was lifting a riding lawnmower over a tree stumpand subsequently injured his back and was found to have an L1 compression fracture. On the same imaging study the patient was also found to have an older L4 compression fracture of otherwise indeterminate age. About needles me the pain is not improved at all and over the years he is dealt with that. The pain remains over the upper lumbar region and does not radiate into his lower extremities, andhe does not report motor weakness or sensory [...] His gait is normal. He stands with levelshoulders and pelvis with a prominent hump over his upper lumbar spine. He is quite tender to palpation and percussion over the upper lumbar region. His motor exam shows full strength. Sensory exam is intact light touch. His reflexes are +2 both knees and both ankles. Peripheral pulses are palpable+2. No clonus. Babinski signs are downgoing. Imaging: I [...] for over 1 year history of back painin relation to an L1 compression fracture that has been progressive and nonhealing and also known history of prostate cancer. I did advise Koko that I do have my concerns if his compression fracture may be partly related to his prostate cancer. I spoke to him about treatment options here but at this point in time Koko defers any conservative care nonoperative management. Thus we will plan on proceeding to an L1 vertebroplasty, with an L1 biopsy at the same time. documented in this encounter Plan of Treatment Not on file documented as of this encounter Results * IR Vertebroplasty Lumbar Multiple Levels (07/20/2019 11:09 AM EDT) Anatomical Region Laterality Modality X-Ray Angiograph y Narrative 07/20/2019 1:20 PM EDT EXAMINATION: IR VERTEBROPLASTY LUMBAR MULTIPLE LEVELS, IR BIOPSY SPINE CLINICAL HISTORY: Request L1 vertebroplasty and biopsy. Hx of prostate CA. Discussed with Dr. Brink; Exam/Procedure requested: Request L1 vertebroplasty and biopsy. [...] a total of 3.5 mg Versed and 175 mcg of Fentanyl was administered by the IR nurses during continuous monitoring of blood pressure, pulse oximetry, and respiration rate. 1 g of Ancef was administered prior to the procedure for prophylaxis. The right pedicle L1 level was localized. 10 cc 1% lidocaine was used for local anesthesia of the entry site at the skin and periosteum overlying the ??L1 level. A small skin incision was made and a 13ga introducer needle (Punchbowl) was advanced through the right pedicle and to the ??L1 vertebral body during an intermittent fluoroscopic guidance. A biopsy device was introduced into the cannula and a biopsy was obtained from the right vertebral body and placed in Telfa saturated with normal saline.. The left pedicle L1 level was then localized. 10 cc 1% lidocaine was used for local anesthesia of the entry site at the skin and periosteum overlying the ??L1 level. A small skin incision was made and a 13ga introducer needle (Punchbowl) was advanced through the left pedicle and to the ??L1 vertebral body during an intermittent fluoroscopic guidance. A biopsy device was introduced into the cannula and a biopsy was obtained from the left vertebral body and placed in Telfa saturated with normal saline. The polymethylmethacrylate/contrast mixture was prepped and injected through the number needle. No cement extravasation. The cement was allowed to harden. The needle removed and post-procedure imaging obtained. The patient tolerated the procedure well. The patient was monitored in the recovery room post-procedure and there were no immediate complications. FINDINGS 1. Deposition of cement within the ??L1 vertebral bodies. There was a small extravasation of the polymethylmethacrylate/contrast mixture through the inferior endplate into the L1-2 disc space. No vascular extravasation. 2. Bilateral vertebral body biopsy performed. 3. Postprocedure patient reported interval resolution of pain and ambulated without difficulty.. IMPRESSION [1. Successful uncomplicated L1 vertebral plasty.] 2. Successful uncomplicated bilateral L1 vertebral body biopsy. Thank you for letting us participate in the care of this patient. For questions regarding this report, please contact the number below. ? Electronically signed by: Bobby Sullivan MD, [facility] ([phone]), at 07/20/2019 1:20 PM Procedure Note Bobby Marshall MD - 07/20/2019 EXAMINATION: IR VERTEBROPLASTY LUMBAR MULTIPLE LEVELS, IR BIOPSY SPINE CLINICAL HISTORY: Request L1 vertebroplasty and biopsy. Hx of prostateCA. Discussed with Dr. Brink; Exam/Procedure requested: Request [id number] and biopsy. Hx of prostate CA. Discussed with Dr. Brink TECHNIQUE: Following discussion of the risks and benefits of the procedure,informed written and verbal consent was obtained. A pre-procedure MRI revealedacute compression fractures of L1. The patient was placed prone on thefluoroscopic table in the prone position. The skin overlying the lumbar spine wasprepped and draped using maximal sterile technique. Due to the painful nature of the procedure a total of 3.5 mg Versed and 175 mcg of Fentanyl wasadministered by the IR nurses during continuous monitoring of blood pressure, pulseoximetry, and respiration rate. 1 g of Ancef was administered prior to the procedurefor prophylaxis. The right pedicle L1 level was localized. 10 cc 1% lidocaine was used forlocal anesthesia of the entry site at the skin and periosteum overlying the [id number]. A small skin incision was made and a 13ga introducer needle (Punchbowl)was advanced through the right pedicle and to the L1 vertebral body duringan intermittent fluoroscopic guidance. A biopsy device was introduced into the cannula and a biopsy was obtainedfrom the right vertebral body and placed in Telfa saturated with normalsaline.. The left pedicle L1 level was then localized. 10 cc 1% lidocaine was usedfor local anesthesia of the entry site at the skin and periosteum overlyingthe L1 level. A small skin incision was made and a 13ga introducer needle(Punchbowl) was advanced through the left pedicle and to the L1 vertebral body duringan intermittent fluoroscopic guidance. A biopsy device was introduced intothe cannula and a biopsy was obtained from the left vertebral body and placedin Telfa saturated with normal saline. The polymethylmethacrylate/contrast mixture was prepped and injectedthrough the number needle. No cement extravasation. The cement was allowed toharden. The needle removed and post-procedure imaging obtained. The patient tolerated the procedure well. The patient was monitored in the recovery room post-procedure and therewere no immediate complications. FINDINGS 1. Deposition of cement within the L1 vertebral bodies. There was asmall extravasation of the polymethylmethacrylate/contrast mixture through the inferior endplate into the L1-2 disc space. No vascular extravasation. 2. Bilateral vertebral body biopsy performed. 3. Postprocedure patient reported interval resolution of pain andambulated without difficulty.. IMPRESSION [1. Successful uncomplicated L1 vertebral plasty.] 2. Successful uncomplicated bilateral L1 vertebral body biopsy. Thank you for letting us participate in the care of this patient. Forquestions regarding this report, please contact the number below. Electronically signed by: Bobby Sullivan MD, [facility]([phone]), at 07/20/2019 1:20 PM Elmer Loya MD IMG IR ORDERABLES * IR Biopsy Spine (07/20/2019 11:09 AM EDT) Anatomical Region Laterality Modality Neck X-Ray Angiograph y Narrative 07/20/2019 1:20 PM EDT EXAMINATION: IR VERTEBROPLASTY LUMBAR MULTIPLE LEVELS, IR BIOPSY SPINE CLINICAL HISTORY: Request L1 vertebroplasty and biopsy. Hx of prostate CA. Discussed with Dr. Brink; Exam/Procedure requested: Request L1 vertebroplasty and biopsy. [...] a total of 3.5 mg Versed and 175 mcg of Fentanyl was administered by the IR nurses during continuous monitoring of blood pressure, pulse oximetry, and respiration rate. 1 g of Ancef was administered prior to the procedure for prophylaxis. The right pedicle L1 level was localized. 10 cc 1% lidocaine was used for local anesthesia of the entry site at the skin and periosteum overlying the ??L1 level. A small skin incision was made and a 13ga introducer needle (Punchbowl) was advanced through the right pedicle and to the ??L1 vertebral body during an intermittent fluoroscopic guidance. A biopsy device was introduced into the cannula and a biopsy was obtained from the right vertebral body and placed in Telfa saturated with normal saline.. The left pedicle L1 level was then localized. 10 cc 1% lidocaine was used for local anesthesia of the entry site at the skin and periosteum overlying the ??L1 level. A small skin incision was made and a 13ga introducer needle (Punchbowl) was advanced through the left pedicle and to the ??L1 vertebral body during an intermittent fluoroscopic guidance. A biopsy device was introduced into the cannula and a biopsy was obtained from the left vertebral body and placed in Telfa saturated with normal saline. The polymethylmethacrylate/contrast mixture was prepped and injected through the number needle. No cement extravasation. The cement was allowed to harden. The needle removed and post-procedure imaging obtained. The patient tolerated the procedure well. The patient was monitored in the recovery room post-procedure and there were no immediate complications. FINDINGS 1. Deposition of cement within the ??L1 vertebral bodies. There was a small extravasation of the polymethylmethacrylate/contrast mixture through the inferior endplate into the L1-2 disc space. No vascular extravasation. 2. Bilateral vertebral body biopsy performed. 3. Postprocedure patient reported interval resolution of pain and ambulated without difficulty.. IMPRESSION [1. Successful uncomplicated L1 vertebral plasty.] 2. Successful uncomplicated bilateral L1 vertebral body biopsy. Thank you for letting us participate in the care of this patient. For questions regarding this report, please contact the number below. ? Electronically signed by: Bobby Sullivan MD, [facility] ([phone]), at 07/20/2019 1:20 PM Procedure Note Bobby Marshall MD - 07/20/2019 EXAMINATION: IR VERTEBROPLASTY LUMBAR MULTIPLE LEVELS, IR BIOPSY SPINE CLINICAL HISTORY: Request L1 vertebroplasty and biopsy. Hx of prostateCA. Discussed with Dr. Brink; Exam/Procedure requested: Request [id number] and biopsy. Hx of prostate CA. Discussed with Dr. Brink TECHNIQUE: Following discussion of the risks and benefits of the procedure,informed written and verbal consent was obtained. A pre-procedure MRI revealedacute compression fractures of L1. The patient was placed prone on thefluoroscopic table in the prone position. The skin overlying the lumbar spine wasprepped and draped using maximal sterile technique. Due to the painful nature of the procedure a total of 3.5 mg Versed and 175 mcg of Fentanyl wasadministered by the IR nurses during continuous monitoring of blood pressure, pulseoximetry, and respiration rate. 1 g of Ancef was administered prior to the procedurefor prophylaxis. The right pedicle L1 level was localized. 10 cc 1% lidocaine was used forlocal anesthesia of the entry site at the skin and periosteum overlying the [id number]. A small skin incision was made and a 13ga introducer needle (Punchbowl)was advanced through the right pedicle and to the L1 vertebral body duringan intermittent fluoroscopic guidance. A biopsy device was introduced into the cannula and a biopsy was obtainedfrom the right vertebral body and placed in Telfa saturated with normalsaline.. The left pedicle L1 level was then localized. 10 cc 1% lidocaine was usedfor local anesthesia of the entry site at the skin and periosteum overlyingthe L1 level. A small skin incision was made and a 13ga introducer needle(Punchbowl) was advanced through the left pedicle and to the L1 vertebral body duringan intermittent fluoroscopic guidance. A biopsy device was introduced intothe cannula and a biopsy was obtained from the left vertebral body and placedin Telfa saturated with normal saline. The polymethylmethacrylate/contrast mixture was prepped and injectedthrough the number needle. No cement extravasation. The cement was allowed toharden. The needle removed and post-procedure imaging obtained. The patient tolerated the procedure well. The patient was monitored in the recovery room post-procedure and therewere no immediate complications. FINDINGS 1. Deposition of cement within the L1 vertebral bodies. There was asmall extravasation of the polymethylmethacrylate/contrast mixture through the inferior endplate into the L1-2 disc space. No vascular extravasation. 2. Bilateral vertebral body biopsy performed. 3. Postprocedure patient reported interval resolution of pain andambulated without difficulty.. IMPRESSION [1. Successful uncomplicated L1 vertebral plasty.] 2. Successful uncomplicated bilateral L1 vertebral body biopsy. Thank you for letting us participate in the care of this patient. Forquestions regarding this report, please contact the number below. 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
--- OUTSIDE RECORDS SUMMARY | 2024-09-17 01:34 | XMS_ITS | Encounter Summary ---
Author Organization [facility] [place] [address] Care Team Providers Care Knockout Worker Name Role Phone Bobby Das MD Primary Care Provider [phone] Encounter Details Date Type Department Care Team (Late st Contact Info) Description 07/26/2015 External [place] [id number] Provider, Scanning Social History Tobacco Use Types Packs/Day Years [...] Priority Date/Time Associated Diagnosis Comments SURGICAL PATHOLOGY SCAN Routine 07/26/2015 documented in this encounter Results * Scan Doc: Surgical Pathology (07/26/2015) Leo Solo MD MEDIA MGR SCAN EXT O RDR/RSLT documented in this encounter Visit Diagnoses Not on filedocumented in this encounter Care Teams Knockout Worker Relationship Specialty Start Date End Date Bobby Das MD [address] [place] [address] [place] [address] PCP - General 10/02/10 documented as of this encounter
--- OUTSIDE RECORDS SUMMARY | 2024-09-17 01:34 | XMS_ITS | Encounter Summary ---
[place] [address] Care Team Providers Care Residency Program Coordinator Name Role Phone Bobby Das MD Primary Care Provider [phone] Encounter Details Date Type Department Care Team (Late st Contact Info) Description 12/13/2016 Telephone [place] [phone] Kourtney Hilliard Social History Tobacco Use Types Packs/Day Years Used Date Smoking Tobacco: Some Days Cigarettes 1 50 Smokeless Tobacco: Never Sex and Gender Information Value Date Recorded Sex Assigned at Not on file Gender Identity Not on file Sexual Orientation Not on file documented as of this encounter Miscellaneous Notes * Telephone Encounter - Kourtney Hilliard - 12/13/2016 2:[address] Safety questions documented in this encounter Plan of Treatment Not on file documented as of this encounter Visit Diagnoses Not on filedocumented in this encounter Care Teams Residency Program Coordinator Relationship Specialty Start Date End Date Bobby Das MD [address] [place] [address] [place] [address] PCP - General 10/02/10 documented as of this encounter
--- OUTSIDE RECORDS SUMMARY | 2024-09-17 01:34 | XMS_ITS | Encounter Summary ---
Author Organization [facility] [place] [address] Care Team Providers Care Hoof Trimmer Name Role Phone Bobby Das MD Primary Care Provider [phone] Encounter Details Date Type Department Care Team (Late st Contact Info) Description 09/18/2018 Telephone Dermatology at [facility] [address] [place] [phone] Yolanda Fraser, RN Social History Tobacco Use Types Packs/Day Years Used Date Smoking Tobacco: Some Days Cigarettes 1 50 Smokeless Tobacco: Never Sex and Gender Information Value Date Recorded Sex Assigned at Not on file Gender Identity Not on file Sexual Orientation Not on file documented as of this encounter Miscellaneous Notes * Telephone Encounter - Yolanda Fraser LPN - [...] [x] Lung Disease/COPD/asthma? And If yes, do you have difficulty lying flat due to breathing? [] [...] Who lives with patient (i.e. spouse, children, usp/mcfp)? Spouse Relevant travel history or future plans: [...] on filedocumented in this encounter Care Teams Hoof Trimmer Relationship Specialty Start Date End Date Bobby Das MD [address] [place] [address] [place] [phone] PCP - General 10/02/10 documented as of this encounter
--- OUTSIDE RECORDS SUMMARY | 2024-09-17 01:34 | XMS_ITS | Encounter Summary ---
Author Organization [facility] Address [facility] [place] [address] Care Team Providers Care Clinical Programmer Name Role Phone Bobby Das MD Primary Care Provider Encounter Details Date Type Department Care Team (Late st Contact Info) Description 06/26/2018 Ancillary Procedure Radiology Library at [facility] [place] [address] Bobby Das MD [address] [place] [phone] Social History Tobacco Use Types Packs/Day Years [...] FILM LIBRARY STORAGE ONLY DX SPINE Routine 06/26/2018 12:00 AM EDT documented in this encounter Results * Film Library- Storage Only DX Spine (06/26/2018 12:00 AM EDT) Narrative [facility] - 06/29/2019 9:46 PM EDT This exam is auto-finalizing. It's purpose is for storage only. Bobby Das MD G FILM LIBRARY ORD ERABLES Performing Organization Address City/State/[facility] Co de Phone Number DH RAD [place], [place] documented in this encounter Visit Diagnoses Not on filedocumented in this encounter Care Teams Clinical Programmer Relationship Specialty Start Date End Date Bobby Das MD [address] [place] [address] [place] [address] PCP - General 10/02/10 documented as of this encounter
--- OUTSIDE RECORDS SUMMARY | 2024-09-17 01:34 | XMS_ITS | Encounter Summary ---
Author Organization [facility] [place] [address] Care Team Providers Care Cake Inspector Name Role Phone Bobby Das MD Primary Care Provider [phone] Reason for Visit * Reason Comments Shortness of Breath Encounter Details Date Type Department Care Team (Late st Contact Info) Description 09/17/2011 10:30 AM EST Office Visit [address] [address] Torrey Giang MD [facility] [place] [address] SOB (shortness of breath) (Primary Dx) Social History Tobacco Use Types Packs/Day Years Used Date Smoking Tobacco: Every Day Cigarettes 1 50 Smokeless Tobacco: Never Sex and Gender Information Value Date Recorded Sex Assigned at Not on file Gender Identity Not on file Sexual Orientation Not on file documented as of this encounter Progress Notes * Wai Schilling - 09/22/2011 2:11 PM EST * Torrey Giang - 09/17/2011 10:27 AM EST Subjective: Patient ID: Koko Zamora is a 70 y.o. male. HPI ROS Objective: Physical Exam Assessment and Plan: No problem-specific visit notes found for this encounter. Scanned note documented in this encounter Procedure Notes * Provider, Scanning - 10/08/2011 11:00 AM ESTAssociated Order(s): SCAN DOC: LAB documented in this encounter Plan of Treatment Not on file documented as of this encounter Procedures Procedure Name Priority Date/Time Associated Diagnosis Comments LAB SCAN 10/08/2011 11:00 AM EST documented in this encounter Results * SCAN DOC: LAB (10/08/2011 11:00 AM EST) Narrative 10/08/2011 11:00 AM EST Procedure Note Provider, Scanning - 10/08/2011 11:00 AM EST Scanning Provider MEDIA MGR SCAN EXT O RDR/RSLT documented in this encounter Visit Diagnoses Diagnosis SOB (shortness of breath)- Primary Shortness of breath documented in this encounter Care Teams Cake Inspector Relationship Specialty Start Date End Date Bobby Das MD [address] [place] [address] [place] [phone] PCP - General 10/02/10 documented as of this encounter
--- OUTSIDE RECORDS SUMMARY | 2024-09-17 01:34 | XMS_ITS | Encounter Summary ---
Author Organization [facility] [place] [address] Care Team Providers Care Wheel Polisher Name Role Phone Bobby Das MD Primary Care Provider [phone] Reason for Referral * Diagnostic Test (Routine) - Specialty Diagnoses / Procedures Referred By Contac t Referred To Contact Radiology Diagnoses Chest pain, unspecified type Chronic abdominal pain Procedures CT Chest w Contrast CT Chest wo Contrast (Generic) Chano Rebolledo MD [facility] [place] [address] [facility] [place] [address] Referral ID Status Reason Start Date Expiration Date Visits Requested Visits Authorized [id number] Specialty Service Requested 12/13/2016 12/13/2017 1 1 * Consultation (Routine) - Closed Specialty Diagnoses / Procedures Referred By Contac t Referred To Contact Neurology Diagnoses Radiculopathy of cervical region Chano Rebolledo MD [facility] [place] [address] [facility] [place] [facility] [address] [place] [address] Referral ID Status Reason Start Date Expiration Date V isits Requested Visits Authorized [id number] Closed Test Only 12/13/2016 12/13/2017 1 1 * Diagnostic Test (Routine) - Closed Specialty Diagnoses / Procedures Referred By Contac t Referred To Contact Radiology Diagnoses Chest pain, unspecified type Chronic abdominal pain Procedures CT Abdomen & Pelvis w Chano Terry MD [facility] [place] [address] [facility] [place] [address] Referral ID Status Reason Start Date Expiration Date V isits Requested Visits Authorized [id number] Closed Specialty Service Requested 12/13/2016 12/13/2017 1 1 Reason for Visit * Reason Comments Pain Management Neck Pain Bilateral Arm Pain burning across nguyen um and ribs, both sides * Consultation (Routine) - Closed Specialty Diagnoses / Procedures Referred By Contac t Referred To Contact Pain Management Diagnoses cervical radiculopathy Bobby Das MD [address] [place] [phone] [facility] [address] [place] [phone] Referral ID Status Reason Start Date Expiration Date V isits Requested Visits Authorized [id number] Closed Consult, Test & Treat 11/22/2016 11/22/2017 1 1 Encounter Details Date Type Department Care Team (Late st Contact Info) Description 12/13/2016 1:00 PM EST Office Visit [place] [address] Leonel Orozco MD [facility] [place] [address] Chest pain, unspecified type; Chronic abdominal pain; Radiculopathy of cervical region Social History Tobacco Use Types Packs/Day Years [...] kg (172 lb) 12/13/2016 12:39 PM EST ve rbal Height 175.3 cm (5' 9) 12/13/2016 12:39 PM EST Body Mass Index 25.4 12/13/2016 12:39 PM EST documented in this encounter Progress Notes * Chano Rebolledo MD - 12/13/2016 1:00 PM EST [facility] [place] [address] Phone: PAIN MANAGEMENT NEW PATIENT / CONSULTATION NOTE DATE OF VISIT 12/13/2016 Patient Koko Zamora 1940 REFERRING PROVIDER Bobby Das MD [address] [place] [address] [place] [address] PRIMARY CARE PROVIDER Bobby Das MD CHIEF [...] from his chest to both flanks and shooting pain from his wrists to thumb starting in [...] this symptoms with neck rotation, flexion, and extension. He states feels that there is a hot bar across his sternum, but does not have pain with deep pressure on the chest. There is pain (right > left) across his ribcage when he takes her [place] and off, and he has pain when water touches his anterior chest initially but not after continuedexposure to the water. He has had no rash, no cold/heat changes in the area affected, no excessive s weating in the area, and no inciting incident. The pain [...] as he had no benefit. 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 He also has pain on palpation of his bilateral superficial radial arteries, which may not necessarily be connected with his chest/abdominal symptoms. An occult malignancy causing referred pain will need [...] / gabapentin 6% / lidocaine 5% from [facility]. Follow up: -Patient will be called after results are obtained. Koko J Zamora had the opportunity to ask questions and indicated that all questions were answered to his satisfaction. Thank you for this referral, Bobby Das MD [address] [place] [address]. Chano Rebolledo MD * Leonel Orozco MD - 12/13/2016 1:00 PM EST I have seen the patient and reviewed the resident's above history and I agree with the details as written. I personally interviewed the patient and performed critical or diaz elements of the physical examination as appropriate. The assessment and management plan were formulated in discussion with meand I agree with them as documented. Leonel Orozco MD, MS documented in this encounter Miscellaneous Notes * Addendum Note - Chano Rebolledo MD - 12/13/2016 2:40 PM ESTAddended by: CHANO REBOLLEDO on: 12/13/2016 02:40 PM Modules accepted: Orders documented in this encounter Plan of Treatment Scheduled Referrals Name Type Priority Associated Diagnoses Orde r Schedule Referral to Neurology Outpatient Referral Routine Radiculopathy of cervical region Ordered: 12/13/2016 documented as of this encounter Results * CT Chest w Contrast (12/17/2016 12:36 PM EST) Anatomical Region Laterality Modality Chest Computed Tomogra phy Impressions 12/17/2016 4:06 PM EST 1. ??Lingular [...] recommended. ?? 2. ??L4 vertebral body compression fracture of indeterminate age. Diffusely decreased osseous mineralization. 3. ??Dense sclerosis in bilateral femoral heads, possible early avascular necrosis. 4. ??Nonobstructing bilateral renal calculi. 5. ??Enlarged prostate. I have personally reviewed the image(s) and the residents interpretation and agree with the findings, Sharmila Llanos at 12/17/2016 4:06 PM Narrative 12/17/2016 4:06 PM EST EXAMINATION: CT CHEST ABDOMEN AND PELVIS W CONTRAST CLINICAL HISTORY: Chest/abdominal pain, rule out malignancy TECHNIQUE: Helical CT of the chest, abdomen, and pelvis was performed following intravenous administration of 110 ml of Omnipaque 350 and oral contrast. COMPARISON: None FINDINGS: Chest Lungs and large airways: Scattered mild atelectasis. 6 mm solid nodule in the lingula, likely an intrapulmonary lymph node. No other abnormal opacities. Pleura: No effusion Heart: Prior median sternotomy. Normal cardiac size. No pericardial effusion. Mediastinum and markell: No lymphadenopathy Abdomen/pelvis Liver: Within normal limits. Bile ducts: Normal caliber Gallbladder: No calcified gallstones. Normal caliber wall. Pancreas: Normal Spleen: Normal Adrenals: Normal Kidneys: Bilateral nonobstructing calculi. No hydronephrosis. 14 mm exophytic simple cyst arising from the right upper pole. Lymph nodes: No enlarged abdominal or pelvic lymph nodes Bowel: Normal caliber, no wall thickening Peritoneum and mesentery: No ascites or free air, no fluid collection Reproductive organs: Enlarged prostate with coarse calcifications. Unremarkable seminal vesicles. Osseous structures: Compression deformity of the L4 vertebral body without displaced fracture fragments. Diffusely decreased osseous mineralization. Bilateral acetabular and femoral head osteophytes. Dense, serpiginous sclerotic foci in the bilateral femoral heads deep to the weightbearing surface. Procedure Note Sharmila Llanos MD - 12/18/2016 EXAMINATION: CT CHEST ABDOMEN AND PELVIS W CONTRAST CLINICAL HISTORY: Chest/abdominal pain, rule out malignancy TECHNIQUE: Helical CT of the chest, abdomen, and pelvis was performedfollowing intravenous administration of 110 ml of Omnipaque 350 and oral contrast. COMPARISON: None FINDINGS: Chest Lungs and large airways: Scattered mild atelectasis. 6 mm solid nodule inthe lingula, likely an intrapulmonary lymph node. No other abnormalopacities. Pleura: No effusion Heart: Prior median sternotomy. Normal cardiac size. No pericardialeffusion. Mediastinum and markell: No lymphadenopathy Abdomen/pelvis Liver: Within normal limits. Bile ducts: Normal caliber Gallbladder: No calcified gallstones. Normal caliber wall. Pancreas: Normal Spleen: Normal Adrenals: Normal Kidneys: Bilateral nonobstructing calculi. No hydronephrosis. 14 mmexophytic simple cyst arising from the right upper pole. Lymph nodes: No enlarged abdominal or pelvic lymph nodes Bowel: Normal caliber, no wall thickening Peritoneum and mesentery: No ascites or free air, no fluid collection Reproductive organs: Enlarged prostate with coarse calcifications.Unremarkable seminal vesicles. Osseous structures: Compression deformity of the L4 vertebral bodywithout displaced fracture fragments. Diffusely decreased osseousmineralization. Bilateral acetabular and femoral head osteophytes. Dense, serpiginoussclerotic foci in the bilateral femoral heads deep to the weightbearing surface. IMPRESSION 1. Lingular pulmonary nodule measuring 6 mm, likely intrapulmonary lymphnode. As per Fleischner Society recommendations for management of solidnodules, follow-up chest CT is recommended in 12 months for low risk patients.For patients with a smoking history or other risk factors for lung cancer,initial follow-up in 6-12 months is recommended. 2. L4 vertebral body compression fracture of indeterminate age.Diffusely decreased osseous mineralization. 3. Dense sclerosis in bilateral femoral heads, possible early avascular necrosis. 4. Nonobstructing bilateral renal calculi. 5. Enlarged prostate. I have personally reviewed the image(s) and the residents interpretationand agree with the findings, Sharmila Llanos at 12/17/2016 4:06 PM Leonel Orozco MD [facility] [place] * CT Abdomen & Pelvis w Contrast (12/17/2016 12:36 PM EST) Anatomical Region Laterality Modality Abdomen, Pelvis Computed Tomogra phy Impressions 12/18/2016 8:13 AM EST 1. ??Lingular [...] recommended. ?? 2. ??L4 vertebral body compression fracture of indeterminate age. Diffusely decreased osseous mineralization. 3. ??Dense sclerosis in bilateral femoral heads, possible early avascular necrosis. 4. ??Nonobstructing bilateral renal calculi. 5. ??Enlarged prostate. I have personally reviewed the image(s) and the residents interpretation and agree with the findings, Sharmila Llanos at 12/17/2016 4:06 PM Narrative 12/18/2016 8:13 AM EST EXAMINATION: CT CHEST ABDOMEN AND PELVIS W CONTRAST CLINICAL HISTORY: Chest/abdominal pain, rule out malignancy TECHNIQUE: Helical CT of the chest, abdomen, and pelvis was performed following intravenous administration of 110 ml of Omnipaque 350 and oral contrast. COMPARISON: None FINDINGS: Chest Lungs and large airways: Scattered mild atelectasis. 6 mm solid nodule in the lingula, likely an intrapulmonary lymph node. No other abnormal opacities. Pleura: No effusion Heart: Prior median sternotomy. Normal cardiac size. No pericardial effusion. Mediastinum and markell: No lymphadenopathy Abdomen/pelvis Liver: Within normal limits. Bile ducts: Normal caliber Gallbladder: No calcified gallstones. Normal caliber wall. Pancreas: Normal Spleen: Normal Adrenals: Normal Kidneys: Bilateral nonobstructing calculi. No hydronephrosis. 14 mm exophytic simple cyst arising from the right upper pole. Lymph nodes: No enlarged abdominal or pelvic lymph nodes Bowel: Normal caliber, no wall thickening Peritoneum and mesentery: No ascites or free air, no fluid collection Reproductive organs: Enlarged prostate with coarse calcifications. Unremarkable seminal vesicles. Osseous structures: Compression deformity of the L4 vertebral body without displaced fracture fragments. Diffusely decreased osseous mineralization. Bilateral acetabular and femoral head osteophytes. Dense, serpiginous sclerotic foci in the bilateral femoral heads deep to the weightbearing surface. Procedure Note Sharmila Llanos MD - 12/18/2016 EXAMINATION: CT CHEST ABDOMEN AND PELVIS W CONTRAST CLINICAL HISTORY: Chest/abdominal pain, rule out malignancy TECHNIQUE: Helical CT of the chest, abdomen, and pelvis was performedfollowing intravenous administration of 110 ml of Omnipaque 350 and oral contrast. COMPARISON: None FINDINGS: Chest Lungs and large airways: Scattered mild atelectasis. 6 mm solid nodule inthe lingula, likely an intrapulmonary lymph node. No other abnormalopacities. Pleura: No effusion Heart: Prior median sternotomy. Normal cardiac size. No pericardialeffusion. Mediastinum and markell: No lymphadenopathy Abdomen/pelvis Liver: Within normal limits. Bile ducts: Normal caliber Gallbladder: No calcified gallstones. Normal caliber wall. Pancreas: Normal Spleen: Normal Adrenals: Normal Kidneys: Bilateral nonobstructing calculi. No hydronephrosis. 14 mmexophytic simple cyst arising from the right upper pole. Lymph nodes: No enlarged abdominal or pelvic lymph nodes Bowel: Normal caliber, no wall thickening Peritoneum and mesentery: No ascites or free air, no fluid collection Reproductive organs: Enlarged prostate with coarse calcifications.Unremarkable seminal vesicles. Osseous structures: Compression deformity of the L4 vertebral bodywithout displaced fracture fragments. Diffusely decreased osseousmineralization. Bilateral acetabular and femoral head osteophytes. Dense, serpiginoussclerotic foci in the bilateral femoral heads deep to the weightbearing surface. IMPRESSION 1. Lingular pulmonary nodule measuring 6 mm, likely intrapulmonary lymphnode. As per Fleischner Society recommendations for management of solidnodules, follow-up chest CT is recommended in 12 months for low risk patients.For patients with a smoking history or other risk factors for lung cancer,initial follow-up in 6-12 months is recommended. 2. L4 vertebral body compression fracture of indeterminate age.Diffusely decreased osseous mineralization. 3. Dense sclerosis in bilateral femoral heads, possible early avascular necrosis. 4. Nonobstructing bilateral renal calculi. 5. Enlarged prostate. I have personally reviewed the image(s) and the residents interpretationand agree with the findings, Sharmila Llanos at 12/17/2016 4:06 PM Leonel Orozco MD IMG CT ORDERABLES documented in this encounter Visit Diagnoses Diagnosis Chest pain, unspecified type Chronic abdominal pain Abdominal pain, unspecified site Radiculopathy of cervical region Brachial neuritis or radiculitis nos Chest pain, unspecified type Chronic abdominal pain Abdominal pain, unspecified site documented in this encounter Care Teams Wheel Polisher Relationship Specialty Start Date End Date Bobby Das MD [address] [place] [address] [place] [phone] PCP - General 10/02/10 documented as of this encounter
--- OUTSIDE RECORDS SUMMARY | 2024-09-17 01:34 | XMS_ITS | Encounter Summary ---
[place] [address] Care Team Providers Care Mine Wirer Name Role Phone Bobby Das MD Primary Care Provider [phone] Encounter Details Date Type Department Care Team (Late st Contact Info) Description 12/16/2016 Telephone [place] [phone] Negra Butt, RN Social History Tobacco Use Types Packs/Day [...] filedocumented in this encounter Care Teams Mine Wirer Relationship Specialty Start Date End Date Bobby Das MD [address] [place] [address] [place] [address] PCP - General 10/02/10 documented as of this encounter
--- OUTSIDE RECORDS SUMMARY | 2024-09-17 01:34 | XMS_ITS | Encounter Summary ---
Author Organization [place] [address] Care Team Providers Care Music Therapy Teacher Name Role Phone Bobby Das MD Primary Care Provider [phone] Encounter Details Date Type Department Care Team (Late st Contact Info) Description 07/13/2019 Orders [place] [address] Alan Brink MD [facility] [place] [address] Gastrointestinal hemorrhage, unspecified gastrointestinal hemorrhage type (Primary Dx) Social History Tobacco Use Types Packs/Day Years Used Date Smoking Tobacco: Some Days Cigarettes 1 50 Smokeless Tobacco: Never Sex and Gender Information Value Date Recorded Sex Assigned at Not on file Gender Identity Not on file Sexual Orientation Not on file documented as of this encounter Progress Notes * Alan Brink - 07/13/2019 5:00 PM EDT [...] file Gets together: Not on file Attends moravian service: Not on file Active member of [...] documented as of this encounter Results * Prothrombin Time (07/20/2019 8:18 AM EDT) Prothrombin Time 11.3 9.4 - 12.5 sec [facility] International Normalization Ratio 1.0 [facility] Comment: An INR [...] depending on clinical circumstances. Blood specimen (specimen) 07/20/2019 8:18 AM EDT 07/20/2019 8:21 AM EDT Narrative Resulting Agency Comment Spec In Lab Bobby Marshall MD HEMATOLOGY ORDERABLE S [facility] [place] [place] [address] * (ABNORMAL) Hemogram (07/20/2019 8:18 AM EDT) White Blood Cell 6.0 4.0 - 9.5 x10(3)/mc L [facility] Red Blood Cell 4.50(L) 4.58 - 5.54 x10(6)/mc L [facility] Hemoglobin 14.8 13.7 - 16.5 gm/dL [facility] Hematocrit 43.9 40.5 - 48.5 % [facility] Mean Cell Volume 97.6(H) 82.9 - 93.1 [facility] Mean Cell Hemoglobin 32.9(H) 27.5 - 32.1 pg [facility] Mean Cell Hemoglobin Concentration 33.7 32.0 - 35.7 gm/dL [facility] Platelet 164 145 - 357 x10(3)/mc L [facility] RDW Standard Deviation 49.3(H) 36.0 - 45.0 [facility] RDW coefficient of variation 13.6 11.4 - 13.8 % [facility] Mean Platelet Volume 10.0 7.6 - 12.9 [facility] NRBC% auto 0.0 % [facility] NRBC Absolute 0.000 0.000 - 0.000 x10(3)/mc L [facility] Blood specimen (specimen) 07/20/2019 8:18 AM EDT 07/20/2019 8:21 AM EDT Narrative Resulting Agency Comment Spec In Lab Bobby Marshall MD HEMATOLOGY ORDERABLE S [facility] [place] [address] documented in this encounter Visit Diagnoses Diagnosis Gastrointestinal hemorrhage, unspecified gastrointestinal hemorrhage type- Primary documented in this encounter Care Teams Music Therapy Teacher Relationship Specialty Start Date End Date Bobby Das MD [address] [place] [address] [place] [phone] PCP - General 10/02/10 documented as of this encounter
--- OUTSIDE RECORDS SUMMARY | 2024-09-17 01:34 | XMS_ITS | Encounter Summary ---
Author Organization [facility] Address [facility] [place] [address] Care Team Providers Care Snow Fence Erector Name Role Phone Bobby Das MD Primary Care Provider [phone] Encounter Details Date Type Department Care Team (Late st Contact Info) Description 05/13/2018 Ancillary Procedure Radiology Library at [facility] [place] [address] Bobby Das MD [address] [place] [phone] Social History Tobacco Use Types Packs/Day Years [...] FILM LIBRARY STORAGE ONLY CT SPINE Routine 05/13/2018 12:00 AM EDT documented in this encounter Results * Film Library- Storage Only CT Spine (05/13/2018 12:00 AM EDT) Narrative [facility] - 06/29/2019 9:44 PM EDT This exam is auto-finalizing. It's purpose is for storage only. Bobby Das MD G FILM LIBRARY ORD ERABLES Performing Organization Address City/State/[facility] Co de Phone Number [facility] [place], [place] documented in this encounter Visit Diagnoses Not on filedocumented in this encounter Care Teams Snow Fence Erector Relationship Specialty Start Date End Date Bobby Das MD [address] [place] [address] [place] [address] PCP - General 10/02/10 documented as of this encounter
--- OUTSIDE RECORDS SUMMARY | 2024-09-17 01:34 | XMS_ITS | Encounter Summary ---
Author Organization [facility] Address [facility] [place] [address] Care Team Providers Care Experience Planning Strategist Name Role Phone Bobby Das MD Primary Care Provider [phone] Encounter Details Date Type Department Care Team (Late st Contact Info) Description 12/20/2016 Telephone [place] [phone] Kristin Schultz, RN Social History Tobacco Use Types Packs/Day Years Used Date Smoking Tobacco: Some Days Cigarettes 1 50 Smokeless Tobacco: Never Sex and Gender Information Value Date Recorded Sex Assigned at Not on file Gender Identity Not on file Sexual Orientation Not on file documented as of this encounter Miscellaneous Notes * Telephone Encounter - Kristin Schultz LPN - 12/20/2016 11:02 AM EST Pt called requesting that the Referral to Hematology and Oncology be sent to [facility]. Which is closer to his home. Will Follow up up with the pain clinic after appointment. documented in this encounter Plan of Treatment Not on file documented as of this encounter Visit Diagnoses Not on filedocumented in this encounter Care Teams Experience Planning Strategist Relationship Specialty Start Date End Date Bobby Das MD [address] [place] [address] [place] [phone] PCP - General 10/02/10 documented as of this encounter
--- OUTSIDE RECORDS SUMMARY | 2024-09-17 01:34 | XMS_ITS | Encounter Summary ---
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 [place] [address] [facility] [address] [place] [phone] Referral ID Status Reason Start Date Expiration Date V isits Requested Visits Authorized [id number] Denied Consult, Test & Treat 12/18/2016 12/18/2017 1 0 Encounter Details Date Type Department Care Team (Late st Contact Info) Description 12/18/2016 [place] [address] Chano Rebolledo MD [facility] [place] [address] Social History Tobacco Use Types Packs/Day Years Used Date Smoking Tobacco: Some Days Cigarettes 1 50 Smokeless Tobacco: Never Sex and Gender Information Value Date Recorded Sex Assigned at Not on file Gender Identity Not on file Sexual Orientation Not on file documented as of this encounter Miscellaneous Notes * Telephone Encounter - Chano Rebolledo MD - 12/18/2016 12:[address] chest/abdomen/pelvis 2-17: 1. Lingular pulmonary nodule measuring 6 mm, [...] measuring 6mm with the patient. He will discusswith his primary care physician, Dr. Reilly, to obtain a pulmonary care physician consultation in his area. At this time, the patient wishes defer the EMG and pursue the pulmonary findings first. I will make a heme/oncology consultation with [facility] for the patient in the meantime. 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
--- OUTSIDE RECORDS SUMMARY | 2024-09-17 01:34 | XMS_ITS | Encounter Summary ---
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, sequela Closed compression fracture of L1 lumbar vertebra with delayed healing, subsequent encounter Malignant neoplasm of prostate Procedures IR Vertebroplasty Lumbar Multiple Levels IR Vertebral Augmentation Lumbar Single Level Zbigniew Thompson PA [facility] [place] [address] [place] [address] Referral ID Status Reason Start Date Expiration Date V isits Requested Visits Authorized [id number] Closed Specialty Service Requested 07/13/2019 07/12/2020 1 1 * Diagnostic Test (Routine) - Closed Specialty Diagnoses / Procedures Referred By Contac t Referred To Contact Radiology Diagnoses Closed compression fracture of L1 lumbar vertebra with delayed healing, subsequent encounter Malignant neoplasm of prostate Procedures IR Biopsy Spine Zbigniew Thompson PA [facility] [place] [address] [place] [address] Referral ID Status Reason Start Date Expiration Date V isits Requested Visits Authorized [id number] Closed Specialty Service Requested 07/13/2019 07/12/2020 1 1 Reason for Visit * Diagnostic [...] Augmentation Lumbar Single Level Zbigniew Thompson PA [facility] [place] [address] [place] [address] Referral ID Status Reason Start Date Expiration Date V isits Requested Visits Authorized [id number] Closed Specialty Service Requested 07/13/2019 07/12/2020 1 1 Encounter Details Date Type Department Care Team (Latest Contact Info) Description 07/20/2019 8:24 AM EDT - 07/20/2019 11:59 PM EDT Hospital [place] [phone] Elmer Loya MD [facility] [place] [address] Closed compression fracture of L1 lumbar vertebra with delayed healing, subsequent encounter; Malignant neoplasm of prostate; 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, sequela Discharge Disposition: Home Social History Tobacco Use [...] 36.7 ??C (98.1 ??F) 07/20/2019 11:15 AM E DT Respiratory Rate 18 07/20/2019 11:41 AM EDT Oxygen Saturation 93% 07/20/2019 11:41 AM EDT Inhaled Oxygen Concentration - - Weight - - Height - - Body Mass Index - - documented in this encounter Discharge Instructions * Discharge Instructions* Fay Martínez RN - 07/20/2019 10:06 AM EDT [facility] Discharge Instructions for Vertebroplasty Your vertebroplasty was [...] is during regular office hours, please call [phone]. If it is after regular office hours, or on weekends or holidays, please call [phone] and ask to speak to the [employer] electronic gaming device supervisor for Interventional Radiology. XXX You have received [...] ORAL) Take 1 tablet by mouth daily. sildenafiL (VIAGRA) 100 mg Tablet Take 100 mg by mouth as needed for Erectile Dysfunction. 11/12/2023 calcium citrate (CALCITRATE) 200 mg (950 mg) Tablet Take 3 tablets by mouth daily. 600mg total 11/12/2023 ibuprofen (ADVIL;MOTRIN) 200 mg Tablet Take 200 mg by mouth every 6 hours as needed for Pain. 05/21/2022 documented as of this encounter Progress Notes * Fay Martínez RN - 07/20/2019 10:15 AM EDT [facility] Name: ETTA BAH Date of : 1940 AGE: 78 y.o. Address: [address] [place] [phone] (home) Mobile: No relevant phone numbers on file. Referring Provider: Zbigniew Thompson REASON FOR VISIT: Order Questions Answers Where will study be performed? [facility] Radiology [120] Specify location Lumbar Reason for [...] by mouth as needed for Erectile Dysfunction. PROVIDER, HISTORICAL carboxymethylcellulose (REFRESH PLUS) 0.5 % Dropperette Apply [...] 1 tablet by mouth daily. PROVIDER, HISTORICAL * Fay Martínez RN - 07/20/2019 9:30 AM EDT To procedure room 4 via stretcher. Onto table Prone. All monitors, O2, safety strap in place. Med'sper protocol. 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, sequela Closed compression fracture of L1 lumbar vertebra with delayed healing, subsequent encounter Malignant neoplasm of prostate IR BIOPSY SPINE Routine 07/20/2019 11:09 AM EDT Closed compression fracture of L1 lumbar vertebra with delayed healing, subsequent encounter Malignant neoplasm of prostate SURGICAL PATHOLOGY REPORT Routine 07/20/2019 10:45 AM EDT SPECIMEN TO PATHOLOGY Routine 07/20/2019 8:41 AM EDT documented in this encounter Results * IR Vertebroplasty Lumbar [...] was made and a 13ga introducer needle (Qompium) was advanced through the right pedicle and [...] was made and a 13ga introducer needle (Qompium) was advanced through the left pedicle and [...] ? Electronically signed by: Bobby Sullivan MD, [facility] ([phone]), at 07/20/2019 1:20 PM Procedure Note Bobby Marshall MD - 07/20/2019 EXAMINATION: IR VERTEBROPLASTY LUMBAR MULTIPLE LEVELS, IR BIOPSY SPINE CLINICAL HISTORY: Request L1 vertebroplasty and biopsy. Hx of prostateCA. Discussed with Dr. Brink; Exam/Procedure requested: Request [id number] and biopsy. Hx of prostate CA. Discussed [...] at the skin and periosteum overlying the L2omayn. A small skin incision was made and a 13ga introducer needle (Qompium)was advanced through the right pedicle and to [...] incision was made and a 13ga introducer needle(Qompium) was advanced through the left pedicle and [...] below. Electronically signed by: Bobby Sullivan MD, [facility]([phone]), at 07/20/2019 1:20 PM Elmer Loya MD [...] was made and a 13ga introducer needle (Qompium) was advanced through the right pedicle and [...] was made and a 13ga introducer needle (Qompium) was advanced through the left pedicle and [...] ? Electronically signed by: Bobby Sullivan MD, [facility] ([phone]), at 07/20/2019 1:20 PM Procedure Note Bobby Marshall MD - 07/20/2019 EXAMINATION: IR VERTEBROPLASTY LUMBAR MULTIPLE LEVELS, IR BIOPSY SPINE CLINICAL HISTORY: Request L1 vertebroplasty and biopsy. Hx of prostateCA. Discussed with Dr. Brink; Exam/Procedure requested: Request [id number] and biopsy. Hx of prostate CA. Discussed [...] at the skin and periosteum overlying the Z0vreeg. A small skin incision was made and a 13ga introducer needle (Qompium)was advanced through the right pedicle and to [...] incision was made and a 13ga introducer needle(Qompium) was advanced through the left pedicle and [...] below. Electronically signed by: Bobby Sullivan MD, [facility]([phone]), at 07/20/2019 1:20 PM Elmer Loya MD [facility] IR ORDERABLES * Surgical Pathology Report (07/20/2019 10:45 AM EDT) Final Diagnosis [id number] ? Location: [facility] The signing pathologist has (i) examined the relevant preparation(s) for the specimen(s) and (ii) rendered or confirmed the diagnosis(es). . ?Surgical Pathology DIAGNOSIS A - Bone, L1; biopsy at vertebroplasty: ?Viable lamellar cancellous bone with scattered intertrabecular chronic ?inflammatory cells, and no evidence of metastatic prostate cancer or ?other neoplasia (see Discussion). Electronically signed by: ??Bebe CARCAMO, Jl Reynolds Verified: ??07/22/2019 ?Pathologist Performed at: ??-[facility] Dept. of Pathology, [place], [place] DISCUSSION Deeper levels into the biopsy tissue block (A1) have been examined. CLINICAL INFORMATION Specimen Submitted: A - L1 biopsy Clinical history/diagnosis: History of prostate CA. SPECIMEN PROCESSING A - Labeled/Fixative: L1, fresh. Quantity/Size: Two, averaging 0.7 x 0.1 cm. Tissue Description: Firm, pinkish needle core biopsies. Sections/Processin g: Blocks submitted for decalcification in EDTA: A1. Submitted en toto ??in 1 cassette labeled A1. ??sns 07/22/2019 3:15 PM EDT [facility] BONE STRUCTURE / Unknown 07/20/2019 10:45 AM EDT 07/20/2019 10:45 AM EDT Elmer Loya MD PATHOLOGY/CYTOLOGY O RADHA Performing Organization Address City/[facility]/ZIP Co de Phone Number [facility] [place] [address] * Specimen to Pathology (07/20/2019 8:41 AM EDT) AP Specimen 07/20/2019 8:41 AM EDT 07/20/2019 8:41 AM EDT Narrative [facility] - 07/20/2019 8:41 AM EDT Specimen requisition ordered. 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 Redose every 8 hours if CrCl is less than 20., Angio/IR (Day of Procedure), Indication for (Active or Suspected): Prophylaxis New Bag 07/20/2019 10:00 AM EDT 2 g 200 mL/hr fentaNYL 50 mcg/mL multi-dose injection 25-50 mcg, Intravenous, EVERY 5 MIN PRN, [...] verbal order., Angio/IR (Intra-Procedure), Routine Given 07/20/2019 10:50 AM EDT 25 mcg Given 07/20/2019 10:45 AM EDT 25 mcg Given 07/20/2019 10:30 AM EDT 25 mcg lidocaine (XYLOCAINE) 10 mg/mL (1 %) injection 10 mg 10 mg, Subcutaneous, ONCE, 1 dose, On Fri07/20/19 at 0915, For use in Interventional Radiology (IR) only for procedure with direct provider supervision and verbal order., Angio/IR (Intra-Procedure), Routine Given 07/20/2019 10:17 AM EDT 10 mg midazolam (PF) (VERSED) multi-dose injection 0.5-1 mg 0.5-1 mg, Intravenous, [...] (Intra-Procedure), Routine Given 07/20/2019 10:45 AM EDT 0.5 mg Given 07/20/2019 10:40 AM EDT 0.5 mg Given 07/20/2019 10:35 AM EDT 0.5 mg documented in this encounter Care Teams Medical Billing Coordinator Relationship Specialty Start Date End Date Bobby Das MD [address] [place] [address] [place] [address] PCP - General 10/02/10 documented as of this encounter
--- OUTSIDE RECORDS SUMMARY | 2024-09-17 01:34 | XMS_ITS | Encounter Summary ---
Author Organization [facility] [place] [address] Care Team Providers Care Property Disposal Manager Name Role Phone Bobby Das MD Primary Care Provider [phone] Reason for Visit * Reason Comments Shortness of Breath Encounter Details Date Type Department Care Team (Late st Contact Info) Description 12/24/2011 10:15 AM EST Office Visit [address] [phone] Torrey Giang MD [facility] [place] [address] SOB (shortness of breath) (Primary Dx) Social History Tobacco Use Types Packs/Day Years Used Date Smoking Tobacco: Every Day Cigarettes 1 50 Smokeless Tobacco: Never Sex and Gender Information Value Date Recorded Sex Assigned at Not on file Gender Identity Not on file Sexual Orientation Not on file documented as of this encounter Progress Notes * Wai Schilling - 01/02/2012 11:09 AM EST * Torrey Giang - 12/24/2011 11:58 AM EST [...] breath documented in this encounter Care Teams Property Disposal Manager Relationship Specialty Start Date End Date Bobby Das MD [address] [place] [address] [place] [phone] PCP - General 10/02/10 documented as of this encounter
--- OUTSIDE RECORDS SUMMARY | 2024-09-17 01:34 | XMS_ITS | Encounter Summary ---
Author Organization [facility] Address [place] [address] Care Team Providers Care Care Coordination Manager Name Role Phone Bobby Das MD Primary Care Provider [phone] Reason for Visit * Reason Onset Date Comments Other 07/19/2011 Encounter Details Date Type Department Care Team (Late st Contact Info) Description 07/19/2011 Telephone Cardiology at [address] [phone] Chet Nicole MD [facility] [place] [address] Other Social History Tobacco Use Types Packs/Day Years Used Date Smoking Tobacco: Every Day Cigarettes 1 50 Smokeless Tobacco: Never Sex and Gender Information Value Date Recorded Sex Assigned at Not on file Gender Identity Not on file Sexual Orientation Not on file documented as of this encounter Miscellaneous Notes * Telephone Encounter - Laney Chahal - 07/19/2011 3:34 PM EDT Dominique from [facility] called stating that Mr. Zamora wansts nothing to do with the dobutamine for his stress test. He said he would be willing to try the treadmill. Dominique said you need to go in and change the order for his stress test. documented in this encounter Plan of Treatment Not on file documented as of this encounter Visit Diagnoses Not on filedocumented in this encounter Care Teams Care Coordination Manager Relationship Specialty Start Date End Date Bobby Das MD [address] [place] [address] [place] [phone] PCP - General 10/02/10 documented as of this encounter
--- OUTSIDE RECORDS SUMMARY | 2024-09-17 01:34 | XMS_ITS | Encounter Summary ---
Author Organization [facility] [place] [address] Care Team Providers Care Mobile Home Park Manager Name Role Phone Bobby Das MD Primary Care Provider [phone] Reason for Visit * Reason Comments Follow-up Encounter Details Date Type Department Care Team (Late st Contact Info) Description 05/31/2014 1:45 PM EDT Office Visit Dermatology at [place] [address] [facility] [place] [address] Cy Knight MD [address] [facility] [place] [address] History of basal cell carcinoma (Primary Dx) Social History Tobacco Use Types Packs/Day Years Used Date Smoking Tobacco: Some Days Cigarettes 1 50 Smokeless Tobacco: Never Sex and Gender Information Value Date Recorded Sex Assigned at Not on file Gender Identity Not on file Sexual Orientation Not on file documented as of this encounter Patient Instructions * Patient Instructions* Supriya Louis LPN - 05/31/2014 1:34 PM EDT [...] a good idea to know your test resultsand keep a list of the medicines you [...] sure the sunscreen blocks ultraviolet rays (both UVAand UVB) and has a sun protection factor [...] more? Visit our health information library at [email or web address] You can also view health information on [employer], your personal patient account. Log in or sign up today. Enter L364 in the search box to learn more about Actinic Keratosis: After Your Visit. ?? [phone] [employer]. Care instructions adapted under license by [facility]. This care instruction is for use with your licensed healthcare professional. If you have questions about a medical condition or this instruction, always ask your healthcare professional. [employer] disclaims any warranty or liability for your use of this information. Content Version: 9.9.059334; Last Revised: December 22, 2012 documented in this encounter Progress Notes * Cy Knight MD - 05/31/2014 2:08 PM EDT Problem: Follow up for repeat skin checkup. Shadi follows up after last being seen in March. 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 I also treated a verruca vulgaris on [...] Visit Diagnoses Diagnosis History of basal cell carcinoma- Primary Personal history of other malignant neoplasm of skin documented in this encounter Care Teams Mobile Home Park Manager Relationship Specialty Start Date End Date Bobby Das MD [address] [place] [address] [place] [address] PCP - General 10/02/10 documented as of this encounter
--- OUTSIDE RECORDS SUMMARY | 2024-09-17 01:34 | XMS_ITS | Encounter Summary ---
Author Organization [facility] Address [facility] [place] [address] Care Team Providers Care Electrocardiograph Operator Name Role Phone Bobby Das MD Primary Care Provider [phone] Reason for Visit * Reason Comments Basal Cell Carcinoma * Consultation (Routine) - Closed Specialty Diagnoses / Procedures Referred By Colby quezada Referred To Contact Dermatology Diagnoses REQUESTING MOHS PROCEDURE RIGHT EYEBROW FOR LESION REMOVED BUT ADDITIONAL TISSUE REMAINS Bobby Das MD [address] [place] [phone] Alvaro Llanos MD [facility] [place] [address] Referral ID Status Reason Start Date Expiration Date V isits Requested Visits Authorized [id number] Closed Consult, [facility] 06/24/2018 06/24/2019 1 1 Encounter Details Date Type Department Care Team (Latest Contact Info) Description 09/23/2018 10:00 AM EST Procedure visit Dermatology at [address] [place] [address] Alvaro Llanos MD [facility] [place] [address] Basal cell carcinoma (BCC) of eyebrow Social [...] this encounter Patient Instructions * Patient Instructions* Indira Cassy GWEN Lockhart - 09/23/2018 10:00 AM EST Your staff surgeon today was Alvaro Llanos MD. Your wound(s) was repaired by pyur-ni-ksyq stitchescalled a primary repair. You do not need [...] wet or soaks through). DO WOUND CARE FOR ONE WEEK. ??? For bandage changes: o Wash hands with soap and water, or use gloves that you can purchase a local pharmacy or drug store. o Clean the surgical area with cotton-tipped swabs or gauze dipped in soapy water (recommend liquidsoap in clean room temperature water). Do not scrub the area or put direct shower water pressure onto your wound. It is okay to allow soapy water to run over your wound in the shower. o If you cannot remove crusted areas, you may soak with wet gauze first for 15 to 20 minutes to help soften it o Pat the area dry with [...] tape or bandage. Band-aids are okay, but typically have more adhesive that can irritate the skin compared to paper tape. o Continue wound care daily until stitches are removed. o Discontinue wound care after 7 days. o Allow the absorbable stitches to heal. If the top stitches that are absorbable are irritating your skin, you may call us to have them removed. Otherwise, they will be absorbed naturally in approximately 2 weeks. It may absorb as quickly as 4 days. After Surgery 1. Avoid tobacco, smoking/vapors, cigars, and cannabis (marijuana) for at least 3 weeks after your surgery. These prevent proper healing and lead to worse scarring. Cutting back on tobacco is helpfulif you cannot abstain completely. 2. Do not [...] and it could lead to worse scarring. Walk ing at a leisurely pace is fine for most people, but not if you are walking for the purpose of exercise. When in doubt, take it easy or call us. 4. Do not lift anything heavier than 10 pounds until your sutures are removed. 5. Some compression molding machine operator may need to be delayed or delegated [...] 3 times per day, 3 minutes each time.Do not start massage before 2 months. 10. [...] as often as is recommended by your attacher, for new skin cancers. This is once per year for most patients. 12. Your can expect your scar to be red for several weeks with gradual fading of the redness. Your scar will also be raised and lumpy until the dissolvable sutures under the skin get absorbed by yourbody which can take 3-4 months. The scar will flatten eventually. a. If you have a skin condition called rosacea, the redness can last long-term, or you can get an increased appearance of red vessels to the skin. The appearance of vessels slightly improves, but tends to respond well to laser treatments. 13. Occasionally, [...] approximately 2 weeks after surgery. You can beginsooner if your skin edges look completely sealed. [...] hours after surgery. Bruising and swelling will gradually resolve. You can use ice packs or a bag of frozen peas for 15-20 minutes, 20 minutes off, up to3-4 times daily to areas of swelling on the face. Use caution not to put the icy item directly ontoyour incision, or directly in contact with your skin as this can damage skin. Avoid prolonged use more than 20 minutes. The best way to use ice packs is over the bandage, or using a light cloth/papertowel barrier between the ice pack and your [...] -Nonstick gauze -A tube or tub of mamadou garcia (fragrance-free, no dye, not lotion) -paper tape [...] your wound. Bleeding is most common in thefirst 48 hours. ??? Pain that is worsening [...] it. If after hours, please call the reactor operator or [phone] and ask for the attacher on-call. If you have any non-urgent questions or concerns, please feel free to call my office or contact me through our patient portal, [employer]pto, at [email or web address] How to contact us during business hours Dermatology at [facility] [address]: Mohs scheduling or Mohs follow-up appointments: [phone] documented in this encounter Progress Notes * Alvaro Llanos MD - 09/23/2018 10:00 AM [...] Who lives with patient (i.e. spouse, children, penitentiary/shelter)? Spouse Relevant travel history or future plans: [...] the Mohs surgeon prior to surgery and Iagree with diagnosis in the associated pathology report. 2) The accompanying pathology report(s) associated with aforementioned biopsy slide(s) were/was also reviewed. Assessment/Plan: Koko Zamora is a 77 y.o. [...] details were reviewed with patient today. We discussed factors specific to the patient including the likely defect size and likely repair options based on the initial clinical picture. All questions were answered. 2. Discussed treatment options based on the above findings. I recommended Mohs micrographic surgeryfor treatment of this tumor. Mohs micrographic surgery was indicated due to patient, site and/or tumor characteristics (see operative report for specific indication). 3. We discussed risks, benefits, and alternative treatment options to the Mohs micrographic surgeryprocedure and pertinent information including but not limited to the following: ?? Risks include bleeding, infection, scar, recurrence, loss of sensation. Risks include incompletetumor removal or inability to cure with surgery [...] scar, and especially avoidance of direct sun exposureto the scar for optimal recovery for at least 6 months. ?? Reviewed that there are some aspects of cosmesis that are dependent on patient's characteristicssuch as age, skin laxity/texture factors, size of pores, inflammatory skin diseases such as rosaceaor rhinophyma, prior surgery/radiation, degree of current sun [...] follow up with his or her referring attacher or other skin provider. Summary of Procedure(s): 1. Please see operative report for complete details. Mohs micrographic surgery was performed today,with tumor-free peripheral and deep margins. Please note [...] Oncology Section of Dermatology, Department of Surgery * Alvaro Llanos MD - 09/23/2018 10:00 AM EST Mohs micrographic Surgery Operative Report Patient name: Koko Zamora : 1940 Date: 09/23/2018 Staff Surgeon: Alvaro Llanos MD Nursing/Boring Mill Set Up Operator(s): Assistants: Cassy Jacobson LPN, Jolene Pretty RN, Yolanda Fraser LPN,Savanah Licea CMA Chuck Wagon Driver (s): Cristina Cisneros Amanda Isenor Pre-operative diagnosis: [...] The site was confirmed with the patient/authorized manufacturing sales representative/referring physician and/or a photograph form time of biopsy. A pre-operative time-out (procedural pause) was conducted with no unresolved discrepancies noted. Local anesthesia was obtained with buffered 1% lidocaine with 1:100,000 epinephrine. The surgical site was prepped and draped in the usual sterile manner. Clinically apparenttumor was removed by curette. With all visible gross tumor completely excised, the borders of the tumor and 2- 3 mm margins were excised as a complete [...] Right eyebrow Indication: repair of wound for jew of function/anatomy Final Defect size: 1.5 x [...] of skin tension lines. The deep tissues wereapposed and sutured with 4-0 / 5-0 Monocryl sutures and the epidermal edges were approximated with 6-0 fast absorbing mehdi running and/or interrupted sutures. The resulting complex linear closure measured 4.0 cm. The surgical site was cleaned and white petrolatum with a gauze pressure dressing applied. The patient tolerated the procedure well and without complications and was given both verbal and written instruction on postoperative wound care. Estimated blood loss: Minimal. Complications: None. Wound care: Routine. Follow up prn. The patient was discharged [...] eyebrow documented in this encounter Care Teams Electrocardiograph Operator Relationship Specialty Start Date End Date Bobby Das MD [address] [place] [address] [place] [phone] PCP - General 10/02/10 documented as of this encounter
--- OUTSIDE RECORDS SUMMARY | 2024-09-17 01:34 | XMS_ITS | Encounter Summary ---
Author Organization [facility] Address [facility] [place] [address] Care Team Providers Care Warehouse Stocker Name Role Phone Bobby Das MD Primary Care Provider [phone] Reason for Visit * Reason Comments Wound Check Encounter Details Date Type Department Care Team (Late st Contact Info) Description 10/25/2015 1:30 PM EST Clinical Support Dermatology at [address] [address] Leo Solo MD [facility] DR JENNY [place] [address] Follow up Social History Tobacco Use Types Packs/Day Years Used Date Smoking Tobacco: Some Days Cigarettes 1 50 Smokeless Tobacco: Never Sex and Gender Information Value Date Recorded Sex Assigned at Not on file Gender Identity Not on file Sexual Orientation Not on file documented as of this encounter Progress Notes * Leo Solo MD - 10/25/2015 1:01 PM EST CC: Wound check HPI: Patient is a 75 y.o. male with history of basal cell carcinoma, right anabaptism, s/p Mohs, repaired by transposition flap on who presents for wound check. Denies complications. States when he blinks he can feel the scar tissue. ROS: Otherwise well. No other skin complaints. Exam: General: No acute distress Skin: Limited examination of right anabaptism shows a well-healed flap with hypertrophy at the edge. Assessment and Plan 1. Basal cell carcinoma, right anabaptism, s/p Mohs, repaired by transposition flap Kenalog 10mg/mL injected intralesionally, total 0.03 mL. Discussed indication for this procedure and potential side effects including ulceration and skin atrophy. Follow up as needed. I, Estefania Momin LPN, am documenting this encounter acting as a scribe for and in the presence of . I performed the above scribed services and agree with the accuracy of the documentation in this encounter. Leo Solo MD documented in this encounter Plan of Treatment Not on file documented as of this encounter Visit Diagnoses Diagnosis Follow up documented in this encounter Care Teams Warehouse Stocker Relationship Specialty Start Date End Date Bobby Das MD [address] [place] [address] [place] [phone] PCP - General 10/02/10 documented as of this encounter
--- OUTSIDE RECORDS SUMMARY | 2024-09-17 01:34 | XMS_ITS | Encounter Summary ---
Author Organization [facility] Address [facility] [place] [place] [address] Care Team Providers Care Metal Flooring Installer Name Role Phone Bobby Das MD Primary Care Provider [phone] Reason for Visit * Reason Comments Basal Cell Carcinoma Encounter Details Date Type Department Care Team (Late st Contact Info) Description 08/08/2015 1:00 PM EDT Office Visit Dermatology at [facility] [address] [place] [address] Leo Solo MD [facility] DR JENNY [place] [address] BCC (basal cell carcinoma of skin) Discharge Disposition: Home Social History Tobacco Use [...] this encounter Patient Instructions * Patient Instructions* Jeni Franco LPN - 08/08/2015 2:02 PM EDT Mohs Micrographic Surgery Date: Dear: You have been scheduled for Mohs Surgery with Dr. Leo Solo on: Mohs surgery is a technique to treat and remove skin cancers under complete microscopic control. Itoffers the best cure rate, but, because of [...] Care Physician on the morning of your surgery.You will be required to update your INR no greater than one week prior to your procedure if you aretaking warfarin (Coumadin). ??? Discontinue Vitamin E and [...] containing products on the morning of surgery. Ifyou are scheduled for reconstructive surgery in the [...] antibiotics. An allergic reaction can turn the skin red with swelling and weeping, mimicking an infection. New data has come out stating that clean samano rgical wounds do not need antibiotic ointment and should be dressed with plain ointment. ??? Non-stick gauze (Telfa pads) or Band-Aids - It is good to have some non- stick bandages that canbe cut and taped over the wound. We use a brand called Telfa but any non-stick bandage will work. Ask your pharmacist what is available in the store. ??? Paper Tape - It will allow the bandage to stick, but will not harm the skin. It is usually welltolerated by patients that have tape allergies. One roll is all you will need. Some patients require bandaging for 1-2 weeks, while others may require bandages for longer periodsof time. We cannot determine this prior to your surgery; therefore, you should have at least one week???s worth of supplies. What to Expect the Day of Surgery: Briefly, the technique is performed as follows: The location of your skin cancer is identified and numbed with a local anesthetic. All visible tumor is removed as well as a thin margin of surroundingskin. Bleeding is stopped and a bandage is placed over the wound. The tissue is then taken to the lab, in our office, where it is processed, stained [...] discuss with you options for wound reconstruction andhealing. Reconstructive surgery cannot be predetermined as it [...] Our facility does not offer a guest [employer] network at this time. We also recommend you bring a lunch or light snack. There are vending machines available with limited food options, as well as complimentary snack foods butno cafeteria or restaurants. For your comfort, we recommend that you dress in layers. We recommend that you have someone with you to keep you company, and unless otherwise specified we require that you have a taxi driver supervisor, as surgery can be stressful and tiring. If you are being transportedfrom a alf or other similar facility, we request that someone stay with you during this appointment. We are located in the [facility] [place], [place]. Please referto the [facility] website for detailed driving directions ([email or web address]). When you arrive,please park in the upper parking lot. When [...] request that you do not take Aspirin orNSAIDS (ie. Ibuprofen, Aleve) for pain control. You may use acetaminophen (Tylenol). ??? Bleeding: A small number of patients will experience some bleeding post operatively. This bleeding can usually be controlled by pressure. If the bleeding persists after 15 minutes of continuous pressure, repeat for another 15 minutes. If this fails, contact our office at [phone] (after 5PMplease call [phone] and ask for the Soldering Machine Operator control and recovery special tactics). Avoid bending over, heavy lifting (no greater than 10 pounds), straining, and do not drink alcohol for 2 days post operatively as thismay stimulate bleeding. ??? Potential Complications: There are some complications that may occur after Mohs Surgery. A small red area may develop surrounding your wound - this is normal and does not necessarily indicate infection. However, if the redness widens over a 2-3 day period, the wound begins to have drainage, or you experience fever or chills, notify our office immediately. Swelling and bruising are very commonfollowing Mohs surgery, particularly when it is performed around the eyes. It is common for one or both eyes to swell shut 1-3 days post operatively. At times, the area surrounding the operative sitewill be numb to touch. This area of [...] will discuss wound care with you in detail at the time of your appointment. Please feel free to call the office if you have any questions about the procedure or the medications you are taking. Our office phone number is [phone]. documented in this encounter Progress Notes * Leo Solo MD - 08/08/2015 1:50 PM EDT MOHS SURGICAL CONSULT Chief Complaint: Basal cell carcinoma History of Present Illness: Referring Physician: Dr. Zheng, [facility] (07/03/15) Tumor type: BCC Location of Skin Cancer: Right sikh Duration of Presence: 1 year Previous Treatment: [...] acute distress. Skin: Limited examination of right sikh reveals a 5 mm erythematous papule. Assessment and Plan 1. BCC, right sikh Reviewed treament options including wide local excision, Mohs micrographic surgery, electrodesiccation and curettage, and radiation therapy. Reviewed reconstruction options including second intention healing, linear repair, local flap, fullthickness graft, and repair by Plastic Surgery or [...] unspecified documented in this encounter Care Teams Metal Flooring Installer Relationship Specialty Start Date End Date Bobby Das MD [address] [place] [address] [place] [phone] PCP - General 10/02/10 documented as of this encounter
--- OUTSIDE RECORDS SUMMARY | 2024-09-17 01:34 | XMS_ITS | Encounter Summary ---
Author Organization [facility] [place] [address] Care Team Providers Care Marinator Name Role Phone Bobby Das MD Primary Care Provider [phone] Reason for Visit * Reason Comments Skin Check Encounter Details Date Type Department Care Team (Late st Contact Info) Description 03/29/2014 1:15 PM EDT Office Visit Dermatology at [address] [phone] Cy Knight MD [address] [place] [address], [facility] [place], [place] [id number] Basal cell carcinoma (Primary Dx); Verruca vulgaris; AK (actinic keratosis) Social History Tobacco Use Types Packs/Day Years Used Date Smoking Tobacco: Some Days Cigarettes 1 50 Smokeless Tobacco: Never Sex and Gender Information Value Date Recorded Sex Assigned at Not on file Gender Identity Not on file Sexual Orientation Not on file documented as of this encounter Progress Notes * Cy Knight MD - 03/29/2014 2:00 PM [...] sun over the years. He lives in [place], [place]. Physical examination reveals a pleasant, 73-year-old gentleman who has a pearly, 1-cm papule on the right lateral canthus, site A; and a pearly papule about 8 mm in diameter, site C, on the right scientologist at the scalp line. At the central [...] BCCAs, right lateral canthus and right lateral scientologist, sites A and C, respectively. a. After [...] this encounter Visit Diagnoses Diagnosis Basal cell carcinoma- Primary Basal cell carcinoma of skin, site unspecified Verruca vulgaris Viral warts, unspecified AK (actinic keratosis) Actinic keratosis documented in this encounter Care Teams Marinator Relationship Specialty Start Date End Date Bobby Das MD [address] [place] [address] [place] [address] PCP - General 10/02/10 documented as of this encounter
--- OUTSIDE RECORDS SUMMARY | 2024-09-17 01:34 | XMS_ITS | Encounter Summary ---
Author Organization [facility] Address [facility] [place] [address] Care Team Providers Care Process Design Chemical Engineer Name Role Phone Bobby Das MD Primary Care Provider [phone] Encounter Details Date Type Department Care Team (Late st Contact Info) Description 08/25/2015 Telephone Dermatology at [facility] [address] [place] [address] Gloria Ferrell MD [facility] DR JENNY [place] [address] Social History Tobacco Use Types Packs/Day Years Used Date Smoking Tobacco: Some Days Cigarettes 1 50 Smokeless Tobacco: Never Sex and Gender Information Value Date Recorded Sex Assigned at Not on file Gender Identity Not on file Sexual Orientation Not on file documented as of this encounter Miscellaneous Notes * Telephone Encounter - Gloria Ferrell MD - [...] were discussed. Mr. Zamora denies any other questionsor concerns at this time. Mr. Zamora is scheduled for follow up, and has been encouraged to call with any questions or concerns that arise prior to this appointment. documented in this encounter Plan of Treatment Not on file documented as of this encounter Visit Diagnoses Not on filedocumented in this encounter Care Teams Process Design Chemical Engineer Relationship Specialty Start Date End Date Bobby Das MD [address] [place] [address] [place] [address] PCP - General 10/02/10 documented as of this encounter
--- OUTSIDE RECORDS SUMMARY | 2024-09-17 01:34 | XMS_ITS | Encounter Summary ---
Author Organization [facility] Address [facility] [place] [address] Care Team Providers Care Unemployment Benefits Claims Taker Name Role Phone Bobby Das MD Primary Care Provider [phone] Reason for Visit * Reason Comments Suture / Staple Removal Encounter Details Date Type Department Care Team (Late st Contact Info) Description 08/31/2015 2:30 PM EDT Clinical Support Dermatology at [address] [phone] Leo Solo MD [facility] [address] [place] [address] Visit for suture removal Social History Tobacco Use Types Packs/Day Years Used Date Smoking Tobacco: Some Days Cigarettes 1 50 Smokeless Tobacco: Never Sex and Gender Information Value Date Recorded Sex Assigned at Not on file Gender Identity Not on file Sexual Orientation Not on file documented as of this encounter Progress Notes * Jeni Franco LPN - 08/31/2015 2:47 PM EDT HPI: Patient is a 74 y.o. male with history of basal cell carcinoma, right rastafarian, s/p Mohs repaired by transposition flap repair who is presenting for suture removal. Denies complications. Exam: General: No acute distress Skin: Limited examination of right rastafarian shows a well-healed flap. There is no erythema, dehiscence, ecchymosis, or drainage. Assessment and Plan 1. Basal cell carcinoma, right rastafarian, s/p Mohs repaired by transposition flap repair [...] sutures documented in this encounter Care Teams Unemployment Benefits Claims Taker Relationship Specialty Start Date End Date Bobby Das MD [address] [place] [address] [place] [address] PCP - General 10/02/10 documented as of this encounter
--- OUTSIDE RECORDS SUMMARY | 2024-09-17 01:34 | XMS_ITS | Encounter Summary ---
Author Organization [facility] Address [facility] [place] [address] Care Team Providers Care Manager Universal Name Role Phone Bobby Das MD Primary Care Provider [phone] Reason for Visit * Reason Comments Shortness of Breath Encounter Details Date Type Department Care Team (Late st Contact Info) Description 06/28/2011 4:00 PM EDT Office Visit Cardiology at [address] [address] Chet Nicole MD [facility] [place] [address] SOB (shortness of breath) (Primary Dx); GIB (gastrointestinal bleeding); MVP (mitral valve prolapse) s/p repair Discharge Disposition: Home Social History Tobacco Use Types Packs/Day Years Used Date Smoking Tobacco: Every Day Cigarettes 1 50 Smokeless Tobacco: Never Tobacco Cessation:Ready to Q uit: No Sex and Gender Information Value Date Recorded [...] this encounter Patient Instructions * Patient Instructions* Jazmine Giordano MD - 06/28/2011 4:15 PM EDT [facility] Cholesterol and Triglycerides Tests: About These Tests What are they? Cholesterol and triglycerides tests measure the amount of fats in your blood, including good (HDL) and bad (LDL) cholesterol. Why are these tests done? Cholesterol and triglycerides tests are done to help find out your chances of having heart disease.If you take medicine for high cholesterol and triglycerides, these tests can help your doctor find out how well the medicine is working. How can you prepare for these tests? ?? If your doctor tells you to fast before your tests, do not eat or drink anything except water for 9 to 12 hours before having your blood drawn. Usually, you are allowed to take your medicines withwater the morning of the test. ?? Do not eat high-fat foods the night before the tests. ?? Do not drink alcohol or exercise strenuously the night before the tests. ?? Be sure to tell your doctor about all the nonprescription and prescription medicines and herbs or other supplements you take. There are many medicines [...] your doctor about your target cholesterol levels. They may vary depending on your health and your risk for certain health problems. ?? Total cholesterol: Lower than 200 mg/dL is recommended. ?? HDL cholesterol: Higher than 40 mg/dL is recommended. Higher than 60 mg/dl is considered ideal. ?? Total niqnipzplnr-mb-ITC ratio: A ratio of 5:1 or lower is recommended. ?? LDL cholesterol: Between 100-129 mg/dL is recommended. Lower than 100 mg/dL is considered ideal. ?? VLDL cholesterol: 30 mg/dL or less is recommended. ?? Triglycerides: Lower than 150 mg/dL is recommended. Where can you learn more? Visit our health information library at [email or web address]. You can alsoview health information on [employer], your personal patient account. Log in or sign up today. Enter V788 in the search box to learn more about Cholesterol and Triglycerides Tests: About These Tests. ?? [id number] [employer]. Care instructions adapted under license by [employer] services[employer]. This care instruction is for use with your licensed healthcare professional. If you have questions about a medical condition or this instruction, always ask your healthcare professional. [employer] disclaims any warranty or liability for your use of this information documented in this encounter Progress Notes * Jazmine Giordano MD - 06/28/2011 5:53 PM [...] as he wakes up at 02:30 AM and cannot go back to sleep. Of note, he admits to drinking 24 beers/week on average, with heavier drinking history in the past. His prior evaluation includes: - evaluation by Dr. Giang in 02/2010 and o with recommendations for stress echo, BRITNEY, statin, lifestyle modifications - PFTs 01/2010 with decreased diffusion capacity but no indication for COPD: FEV1 10&% predicted, FEV1/FVC 102% predicted - Stress echo 04/2010: negative, [...] valve prolapse) s/p repair Surgery done at [facility] in 2000 ??? Hypertriglyceridemia ??? Adhesive capsulitis of L shoulder ??? Alcohol use Medications: Jackson-3 Fatty Acids-Vitamin E (FISH OIL) 1,000 mg [...] with regular but with strenuous activity. His riskfactors are: smoking, hyperlipidemia,age, etoh intake. Given significant etoh consumption could susp ect alcoholic cardiomyopathy with decreased EF, although no [...] of therapy with Dr Giordano and have reviewed their note dated 07/01/2011 and I agree with [...] Procedure Name Priority Date/Time Associated Diagnosis Comments EKG 12-LEAD Routine 06/28/2011 2:59 PM EDT SOB (shortness of breath) documented in this encounter Results * EKG 12 Lead (06/28/2011 2:59 PM EDT) Ventricular rate 70 BPM MUSE SYSTEM Atrial Rate 70 BPM MUSE SYSTEM P-R Interval 182 ms MUSE SYSTEM QRS Duration 106 ms MUSE SYSTEM Q-T Interval 406 ms MUSE SYSTEM QTC Calculated (Bezet) 438 ms MUSE SYSTEM Calculated P [place] 60 degrees MUSE SYSTEM Calculated R [place] -51 degrees MUSE SYSTEM Calculated T [place] 32 degrees MUSE SYSTEM INTERPRETATION Normal sinus rhythm Left anterior fascicular block Minimal voltage criteria for LVH, may be normal variant Abnormal ECG No previous ECGs available Confirmed by MD BRENDA, EDWARD ([id number]) on 06/29/2011 10:38:32 AM MUSE SYSTEM 06/28/2011 2:59 PM EDT 06/29/2011 10:38 AM EDT Chet Nicole MD ECG ORDERABLES MUSE SYSTEM documented in this encounter Visit Diagnoses Diagnosis SOB (shortness of breath)- Primary Shortness of breath GIB (gastrointestinal bleeding) Hemorrhage of gastrointestinal tract, unspecified MVP (mitral valve prolapse) s/p repair Mitral valve disorders documented in this encounter Care Teams Manager Universal Relationship Specialty Start Date End Date Bobby Das MD [address] [place] [address] [place] [address] PCP - General 10/02/10 documented as of this encounter
--- OUTSIDE RECORDS SUMMARY | 2024-09-17 01:34 | XMS_ITS | Encounter Summary ---
[facility] Address [facility] [place] [address] Care Team Providers Care Spray Painting Machine Operator Name Role Phone Bobby Das MD Primary Care Provider [phone] Encounter Details Date Type Department Care Team (Late st Contact Info) Description 06/16/2019 Ancillary Procedure Radiology Library at [facility] [address] Bobby Das MD [address] [place] [phone] Social History Tobacco Use Types Packs/Day Years [...] FILM LIBRARY STORAGE ONLY MR SPINE Routine 06/16/2019 12:00 AM EDT documented in this encounter Results * Film Library- Storage Only MR Spine (06/16/2019 12:00 AM EDT) Narrative [facility] - 06/29/2019 9:48 PM EDT This exam is auto-finalizing. It's purpose is for storage only. Bobby Das MD G FILM LIBRARY ORD ERABLES Performing Organization Address City/State/[facility] Co de Phone Number [facility] [place], [place] documented in this encounter Visit Diagnoses Not on filedocumented in this encounter Care Teams Spray Painting Machine Operator Relationship Specialty Start Date End Date Bobby Das MD [address] [place] [address] [place] [address] PCP - General 10/02/10 documented as of this encounter
--- OUTSIDE RECORDS SUMMARY | 2024-09-17 01:34 | XMS_ITS | Encounter Summary ---
Author Organization [facility] [place] [address] Care Team Providers Care Oil Processing Technician Name Role Phone Bobby Das MD Primary Care Provider [phone] Encounter Details Date Type Department Care Team (Latest Contact Info) Description 07/20/2019 8:15 AM EDT Laboratory Appointment Lab [address] [place] [address] Gastrointestinal hemorrhage, unspecified gastrointestinal hemorrhage type Social History Tobacco Use Types Packs/Day [...] Name Priority Date/Time Associated Diagnosis Comments HC HEMOGRAM Routine 07/20/2019 8:18 AM EDT Gastrointestinal hemorrhage, unspecified gastrointestinal hemorrhage type HC PROTHROMBIN TIME Routine 07/20/2019 8 :18 AM EDT Gastrointestinal hemorrhage, unspecified gastrointestinal hemorrhage type documented in this encounter Results * (ABNORMAL) Hemogram (07/20/2019 8:18 AM EDT) White Blood Cell 6.0 4.0 - 9.5 x10(3)/mc L [facility] Red Blood Cell 4.50(L) 4.58 - 5.54 x10(6)/mc L [facility] Hemoglobin 14.8 13.7 - 16.5 gm/dL [facility] Hematocrit 43.9 40.5 - 48.5 % [facility] Mean Cell Volume 97.6(H) 82.9 - 93.1 fL [facility] Mean Cell Hemoglobin 32.9(H) 27.5 - 32.1 pg [facility] Mean Cell Hemoglobin Concentration 33.7 32.0 - 35.7 gm/dL [facility] Platelet 164 145 - 357 x10(3)/ L [facility] RDW Standard Deviation 49.3(H) 36.0 - 45.0 [facility] RDW coefficient of variation 13.6 11.4 - 13.8 % [facility] Mean Platelet Volume 10.0 7.6 - 12.9 [facility] NRBC% auto 0.0 % [facility] NRBC Absolute 0.000 0.000 - 0.000 x10(3)/[facility] Blood specimen (specimen) 07/20/2019 8:18 AM EDT 07/20/2019 8:21 AM EDT Narrative Resulting Agency Comment Spec In Lab Bobby Marshall MD HEMATOLOGY ORDERABLE S [facility] [place] [address] * Prothrombin Time (07/20/2019 8:18 AM EDT) Prothrombin Time 11.3 9.4 - 12.5 sec [facility] International Normalization Ratio 1.0 [facility] Comment: [...] Lab Bobby Marshall MD HEMATOLOGY ORDERABLE S Performing Organization Address City/State/[facility] Co de Phone Number [facility] [place] [address] documented in this encounter Visit Diagnoses Diagnosis Gastrointestinal hemorrhage, unspecified gastrointestinal hemorrhage type documented in this encounter Care Teams Oil Processing Technician Relationship Specialty Start Date End Date Bobby Das MD [address] [place] [address] [place] [address] PCP - General 10/02/10 documented as of this encounter
--- OUTSIDE RECORDS SUMMARY | 2024-09-17 01:34 | XMS_ITS | Encounter Summary ---
Author Organization [facility] [place] [address] Care Team Providers Care Aed Trainer Name Role Phone Bobby Das MD Primary Care Provider [phone] Reason for Referral * Diagnostic Test (Routine) - Specialty Diagnoses / Procedures Referred By Contac t Referred To Contact Radiology Diagnoses Chest pain, unspecified type Chronic abdominal pain Procedures CT Chest w Contrast CT Chest wo Contrast (Generic) Chano Rebolledo MD [facility] [place] [address] [facility] [place] [address] Referral ID Status Reason Start Date Expiration Date Visits Requested Visits Authorized [id number] Specialty Service Requested 12/13/2016 12/13/2017 1 1 * Diagnostic Test (Routine) - Closed Specialty Diagnoses / Procedures Referred By Contac t Referred To Contact Radiology Diagnoses Chest pain, unspecified type Chronic abdominal pain Procedures CT Abdomen & Pelvis w Contrast Chano Rebolledo MD [facility] [place] [address] [facility] [place] [address] Referral ID Status Reason Start Date Expiration Date V isits Requested Visits Authorized [id number] Closed Specialty Service Requested 12/13/2016 12/13/2017 1 1 Reason for Visit * Diagnostic Test (Routine) - Closed Specialty Diagnoses / Procedures Referred By Colby quezada Referred To Contact Radiology Diagnoses Chest pain, unspecified type Chronic abdominal pain Procedures CT Abdomen & Pelvis w Contrast Chano Rebolledo MD [facility] [place] [address] [facility] [place] [address] Referral ID Status Reason Start Date Expiration Date V isits Requested Visits Authorized [id number] Closed Specialty Service Requested 12/13/2016 12/13/2017 1 1 Encounter Details Date Type Department Care Team (Latest Contact Info) Description 12/17/2016 9:50 AM EST - 12/17/2016 11:59 PM EST Hospital [place] [address] Leonel Orozco MD [facility] [place] [address] Chest pain, unspecified type; Chronic abdominal pain Discharge Disposition: Home Social History Tobacco Use [...] ORAL) Take 1 tablet by mouth daily. fluticasone (FLONASE) 50 mcg/actuation nasal spray 1 spray by Each Nare route daily. 09/18/2018 documented as of this encounter Plan of Treatment Not on file documented as of this encounter Procedures Procedure Name Priority Date/Time Associated Diagnosis Comments CT ABDOMEN AND PELVIS W CONTRAST Routine 12/17/2016 12:36 PM EST Chest pain, unspecified type Chronic abdominal pain CT CHEST W CONTRAST Routine 12/17/2016 1 2:36 PM EST Chest pain, unspecified type Chronic abdominal pain CT SCAN (SCAN) 09/09/2016 12:00 AM EDT documented in this encounter Results * CT Chest w [...] PM Leonel Orozco MD IMG CT ORDERABLES * CT Abdomen & Pelvis [...] PM Leonel Orozco MD IMG CT ORDERABLES * SCAN DOC: CT SCAN (09/09/2016 12:00 AM EDT) Anatomical Region Laterality Modality Computed Tomogra phy Scanning Provider MEDIA MGR SCAN EXT O RDR/RSLT documented in this encounter Visit Diagnoses Diagnosis Chest pain, unspecified type Chronic abdominal pain Abdominal pain, unspecified site documented in this encounter Administered Medications Inactive Administered Medications - up to 3 most recent administrations Medication Order MAR Action Action Date Dose Rate Site iohexol (OMNIPAQUE) 350 mg/mL solution 38,500 mg 38,500 mg (110 mL), Intravenous, ONCE PRN, 1 dose, Starting on Fri12/17/16 at 1211, Until Fri12/17/16 at 1237, Per Protocol, Warning Vesicant/Irritant Medication , Routine Given 12/17/2016 12:37 PM EST 38,500 mg iohexol (OMNIPAQUE) radiology oral prep (50 mL of oral contrast) 50 mL 50 mL, Oral, ONCE PRN, per protocol, Starting on Fri12/17/16 at 1211, 1 dose, Until Tu12/17/16 at 1237 Given 12/17/2016 12:37 PM EST 50 mLs documented in this encounter Care Teams Aed Trainer Relationship Specialty Start Date End Date Bobby Das MD [address] [place] [address] [place] [phone] PCP - General 10/02/10 documented as of this encounter
[2024-09-17 11:44] LABS: Iron 56 ug/dL (65-175)
[2024-09-17 11:46] LABS: Ferritin 28 ng/mL (26-388)
== END 2024-09-17 01:15 | disposition home or self-care (01) ==
LOC: LBO 01:14
PROVIDERS: PCP Family Medicine; Visit Provider Family Medicine
DX: D64.9 Anemia, unspecified (principal)
CPT/HCPCS: 36415; 82728; 83540

== ENCOUNTER 2024-09-30 10:35 | Inpatient (IN) | payer MEDICARE, SELFPAY ==
[2024-09-30] VITALS (115 sets, daily range): BP systolic 79–128; BP diastolic 37–71; PULSE 47–113; RESP 11–49; TEMP 36.4–36.8; O2SAT 87–97
--- NOTE | 2024-09-30 10:30 | RT.EKG_ITS ---
APPROVED REPORT Exam: Resting ECG Reason for Exam: hypotensive Patient Location: E HR:85 bpm ECG Measurements Heart Rate 85 AXIS IN [id number] P [id number] QRSd 124 QRS -54 QT 420 T 111 QTc 500 Conclusion Atrial fibrillation...V-rate 61- 82, irreg A-activity Ventricular bigeminy...bigeminy string>4 w/ V complexes Left bundle branch block...QRSd>120, broad/notched R
[2024-09-30 11:39] LABS: Abs Immature Grans 0.01 10^3/uL (0.0-0.06); Absolute Basophil Count 0.04 10^3/uL (0.0-0.2); Absolute Eosinophil Count 0.16 10^3/uL (0.0-0.7); Absolute Lymphocyte Count 1.34 10^3/uL (1.2-3.4); Absolute Monocyte Count 0.65 10^3/uL (0.1-0.8); Absolute Neutrophil Count 3.27 10^3/uL (1.2-6.7); Basophils % 0.7 %; Eosinophils % 2.9 %; HCT 37.2 % (40.0-50.0); HGB 12.2 g/dL (13.5-17.5); Immature Grans % 0.2 %; Lymphocytes % 24.5 %; MCH 31.2 pg (27.0-33.0); MCHC 32.8 % (32.0-36.0); MCV 95 fL (80-95); MPV 11.2 fL (8.0-11.0); Monocytes % 11.9 %; Neutrophils % 59.8 %; Platelet Count 142 10^3/uL (130-400); RBC 3.91 10^6/uL (4.36-5.78); RDW 13.2 % (11.8-14.1); RDW-SD 46.5 fL; WBC 5.47 10^3/uL (4.4-10.8)
--- NOTE | 2024-09-30 11:47 | DI.RAD_ITS ---
Exam(s) XR PORTABLE CHEST AP EXAM: XR PORTABLE CHEST AP CLINICAL HISTORY: sob. TECHNIQUE: 2D digital imaging was performed. COMPARISON: CR,XR XR PORTABLE CHEST AP from 12/08/2022 FINDINGS: Single AP portable view. Sternotomy wires again noted Mild cardiomegaly again evident. Increased interstitial markings both lung alfred again noted. No new confluent infiltrates nor pleur al effusions. IMPRESSION: Sternotomy. Mild cardiomegaly. Increased interstitial markings bilaterally which appear chronic, unchanged from 12/08/2022. No pleu ral effusions. DATA REPOSITORY: RADIATION DOSE DELIVERED:
--- NOTE | 2024-09-30 11:56 | W.ED.GENAD ---
Discharge Plan Disposition Patient Disposition: Admit to [facility] Condition: Serious Discharge Details Chief Complaint: GenMedical Clinical Impression: Chronic atrial fibrillation, CHF (congestive heart failure), Pulmonary embolism, Pulmonary infiltrate Primary Care Provider: Bobby Das ED Provider: Alexander Jones Home Meds and New Rx's Prescriptions: No Action carvedilol 3.125 mg tablet 3.125 mg PO BID Rx Instructions: must administer with a meal/food metformin 500 mg tablet 500 mg PO BID Eliquis 2.5 mg tablet 2.5 mg PO BID tamsulosin 0.4 mg capsule 1 cap PO 1XD Patient Comments: TAKE ONE CAPSULE BY MOUTH AT BEDTIME multivitamin Tablet 1 tab PO DAILY calcium citrate 200 mg (950 mg) Tablet 200 mg PO DAILY carboxymethylcellulose sodium [Refresh Plus] 0.5 % Dropperette 3 drp ophthalmic (eye) TID PRN (Reason: Eye Irritation) sildenafil 100 mg Tablet 100 mg PO PRN PRN fluticasone propionate 50 mcg/actuation spray,suspension 1 spray intranasal BID PRN PRNQty: 0 0RF Rx Instructions: administer into each nostril atorvastatin 80 mg tablet 80 mg PO DAILY Patient Comments: TAKE ONE TABLET BY MOUTH EVERY DAY +STOP ROSUVASTATIN+ metformin 500 mg tablet extended release 24 hr 500 mg PO BID Patient Comments: TAKE TWO TABLETS BY MOUTH TWICE A DAY HPI General Date/Time Provider Initiated Documentation: 09/30/24 11:03. Limitations to Documentation: no limitations. Information obtained by: patient and family. HPI Narrative: 84-year-old male with multiple medical problems including history of coronary artery disease, congestive heart failure, chronic atrial fibrillation, chronic blood loss anemia, history of mitral valve repair, aortic stenosis, CVA with residual speech problems, here with chief complaint of lack of energy. Patient notes decreased energy over the past 3 weeks. He has had fatigue with increased sleeping over the same period of time. He states exercise intolerance with shortness of breath on exertion. He does note some disorientation as well. No new focal weakness. No fevers or chills. He has had some chest pain intermittently over the past 2 months that initially responded well to Rolaids but more recently has not responded. Patient does note recent stool test positive for occult blood. No barrett blood noted. No melena. Patient denies abdominal pain. Patient is receiving iron infusions and had been scheduled for an infusion today. Related Data Home Medications ?Medication ?Instructions ?Recorded ?Confirmed tamsulosin 0.4 mg capsule 1 cap PO 1XD 05/15/22 09/30/24 calcium citrate 200 mg PO DAILY 06/23/22 09/30/24 carboxymethylcellulose sodium 0.5 3 drp ophthalmic (eye) TID PRN Eye 06/23/22 09/30/24 % eye drops in a dropperette Irritation (Refresh Plus) multivitamin 1 tab PO DAILY 06/23/22 09/30/24 sildenafil 100 mg tablet 100 mg PO PRN PRN 08/15/22 09/30/24 fluticasone propionate 50 1 spray intranasal BID PRN PRN #0 08/17/22 09/30/24 mcg/actuation nasal grams spray,suspension apixaban 2.5 mg tablet (Eliquis) 2.5 mg PO BID 12/23/22 09/30/24 carvedilol 3.125 mg tablet 3.125 mg PO BID 10/06/23 09/30/24 metformin 500 mg tablet 500 mg PO BID 10/06/23 09/30/24 atorvastatin 80 mg tablet 80 mg PO DAILY 09/30/24 09/30/24 metformin 500 mg tablet,extended 500 mg PO BID 09/30/24 09/30/24 release 24 hr Previous Rx's ?Medication ?Instructions ?Recorded fluticasone propionate 50 1 spray intranasal BID PRN PRN #0 08/17/22 mcg/actuation nasal grams spray,suspension Allergies Allergy/AdvReac Type Severity Reaction Status Date / Time aspirin AdvReac Mild GI Bleeding Verified 09/30/24 10:48 General Stated Complaint: GenMedical MÓNICA: 2 Review of Systems All systems reviewed & are unremarkable except as noted in HPI and below Constitutional Constitutional: Denies fever(s) Cardiovascular Cardiovascular: Reports as per HPI, Reports chest pain, Reports dyspnea and Reports dyspnea on exertion Respiratory Respiratory: Reports dyspnea and Reports dyspnea on exertion Exam Const General: cooperative and no acute distress HENMT Mouth: moist mucous membranes Eyes Conjunctivae: normal conjunctivae Sclera: normal sclerae Neck Neck: trachea midline Resp Effort & Inspection: normal respiratory effort Auscultation: clear to auscultation bilaterally, no rales and no wheezes Cardio Rate: regular rate and not tachycardic Rhythm: regular rhythm Heart Sounds: murmur GI Palpation: soft, not firm, no guarding, no masses, not rigid and nontender Skin General skin exam: no rashes or lesions noted Neuro General: patient alert, patient awake and tone normal Extrem General: no calf tenderness and no edema Psych Appearance: grossly normal Mental Status: mental status grossly normal Course Vital Signs Vital signs: Vital Signs Temperature 36.4 C L 09/30/24 10:40 Pulse 100 H 09/30/24 10:40 Respiratory Rate 17 09/30/24 10:40 Blood Pressure 113/63 09/30/24 10:40 Temperature 36.4 C L 09/30/24 10:52 Temperature Source Oral 09/30/24 10:52 Pulse 71 09/30/24 11:31 Pulse 81 09/30/24 11:40 Respiratory Rate 16 09/30/24 11:50 Respiratory Effort Normal 09/30/24 11:50 Respiratory Depth Normal 09/30/24 11:50 Respiratory Pattern Normal 09/30/24 11:50 Blood Pressure 91/37 L 09/30/24 11:31 Blood Pressure Mean 53 09/30/24 11:31 Blood Pressure Position Supine 09/30/24 10:52 Pulse Oximetry 95 09/30/24 11:40 Oxygen Delivery Method Nasal Cannula 09/30/24 11:29 Oxygen Flow Rate 2 09/30/24 11:29 Pain Level 0 09/30/24 10:52 Comment MD aware of BP 09/30/24 11:31 Lab/Test Results Lab/Test Results: Laboratory Tests Range/Units 09/30/24 10:57 WBC (4.4-10.8) 10^3/uL 5.47 RBC (4.36-5.78) 10^6/uL 3.91 L Hgb (13.5-17.5) g/dL 12.2 L Hct (40.0-50.0) % 37.2 L MCV (80-95) fL 95 MCH (27.0-33.0) pg 31.2 MCHC (32.0-36.0) % 32.8 RDW (11.8-14.1) % 13.2 Plt Count (130-400) 10^3/uL 142 MPV (8.0-11.0) fL 11.2 H Immature Gran % % 0.2 Neutrophils % % 59.8 Lymphocytes % % 24.5 Monocytes % % 11.9 Eosinophils % % 2.9 Basophils % % 0.7 Nucleated RBC % (0.0-0.3) % 0.0 Absolute Neutrophils (1.2-6.7) 10^3/uL 3.27 Absolute Lymphocytes (1.2-3.4) 10^3/uL 1.34 Absolute Monocytes (0.1-0.8) 10^3/uL 0.65 Absolute Eosinophils (0.0-0.7) 10^3/uL 0.16 Absolute Basophils (0.0-0.2) 10^3/uL 0.04 Troponin I Cancelled Medical Decision Making 1200 --84-year-old male with multiple medical problems including history of coronary artery disease, CHF, A-fib, aortic stenosis, mitral valve replacement, CVA with residual speech deficit, here today with fatigue, generalized weakness, dyspnea on exertion with exercise intolerance, disorientation over the past 3 weeks as well as intermittent central chest discomfort for the past 2 months. Concern for acute anemia, consider GI source given positive occult blood test recently, versus ACS versus acute exacerbation of CHF. Consider electrolyte abnormalities. EKG was reviewed and interpreted by me: Please report, sinus rhythm 78 bpm, probable left atrial lodgment, no STEMI. Plan to check and trend troponin. Notified by nursing that patient was having intermittent hypoxia. Nasal cannula oxygen applied. Plan to monitor closely. --Notified by nursing that patient's blood pressure decreased to 70s/40s. Will give 250ml IVF bolus. -- BP reassessed after bolus and improved. 1323 --Labs reviewed: Hemoglobin stable at 12. No significant electrolyte abnormalities. Initial troponin negative. BNP is elevated at 1210. No prior for comparison. Second troponin pending. CT of the chest was interpreted by radiology:1. Subtle evidence of intraluminal defects consistent with pulmonary emboli in the distal right lower lobe vessel in the posterior basal segment of the right lower lobe. There is also subpleural infiltrate in the posterior basal segment of the right lower lobe, either infectious or element of pulmonary infarct or a combination thereof. Pleural effusions. No obvious right heart strain. 2. Mild cardiomegaly. Sternotomy wires. PE refractory to anticoagulation. Suspect CHF but will will cover with ceftriaxone IV given radiologic finding of potential infectious infiltrate. 1335 --call to [facility] to discuss potential transfer with cardiology. --Delta troponin negative. 1457 -- Spoke with cardiology at [facility] [place], discussed ED presentation and course, CT was sent for review, ECG was sent for review. He recommends increase apixabin to 5bid. Consider switch carvedilol to metoprolol succinate 25 daily if hypotension continues to be concerned. He recommends hospitalization here to medicine service. 3426 --I discussed treatment plan with the patient and his and they provided informed consent to anticoagulation. I spoke with Dr. Garces, on-call hospitalist, discussed ED presentation course, he will admit the patient. Lab Data Lab results reviewed: Yes I reviewed the patient's lab results. Labs: 09/30/24 13:32 Blood Blood Culture - Pending 09/30/24 13:18 Blood Blood Culture - Pending Laboratory Tests Range/Units 09/30/24 09/30/24 09/30/24 10:57 10:57 11:23 WBC (4.4-10.8) 10^3/uL 5.47 RBC (4.36-5.78) 10^6/uL 3.91 L Hgb (13.5-17.5) g/dL 12.2 L Hct (40.0-50.0) % 37.2 L MCV (80-95) fL 95 MCH (27.0-33.0) pg 31.2 MCHC (32.0-36.0) % 32.8 RDW (11.8-14.1) % 13.2 Plt Count (130-400) 10^3/uL 142 MPV (8.0-11.0) fL 11.2 H Immature Gran % % 0.2 Neutrophils % % 59.8 Lymphocytes % % 24.5 Monocytes % % 11.9 Eosinophils % % 2.9 Basophils % % 0.7 Nucleated RBC % (0.0-0.3) % 0.0 Absolute Neutrophils (1.2-6.7) 10^3/uL 3.27 Absolute Lymphocytes (1.2-3.4) 10^3/uL 1.34 Absolute Monocytes (0.1-0.8) 10^3/uL 0.65 Absolute Eosinophils (0.0-0.7) 10^3/uL 0.16 Absolute Basophils (0.0-0.2) 10^3/uL 0.04 Sodium (136-145) mmol/L 143 Potassium (3.5-5.1) mmol/L 4.3 Chloride (98-107) mmol/L 109 H Carbon Dioxide (21.0-32.0) mmol/L 27.8 Anion Gap (3-11) mmol/L 6.2 BUN (7-18) mg/dL 20 H Creatinine (0.70-1.30) mg/dL 1.0 Est GFR (CKD-EPI 2020) (mL/min/1.73m2) 75.14 Glucose (74-106) mg/dL 208 H Calcium (8.5-10.1) mg/dL 8.9 Magnesium (1.8-2.4) mg/dL 1.8 Total Bilirubin (0.2-1.0) mg/dL 0.80 AST (15-37) U/L 13 L ALT (16-63) U/L 25 Alkaline Phosphatase (46-116) U/L 102 Troponin I (<or=76) ng/L 12 Cancelled NT-Pro-B Natriuret Pep (<300) pg/mL 1210 H Total Protein (6.4-8.2) g/dL 7.4 Albumin (3.4-5.0) g/dL 3.8 COVID-19 Source Nasopharynx SARS-CoV-2 (PCR) (Negative) Negative Influenza Type A (PCR) (Negative) Negative Influenza Type B (PCR) (Negative) Negative RSV (PCR) (Negative) Negative ABO/Rh O Positive Antibody Screen NEGATIVE Quality:SDOH Health Related Social Needs: No Data to Display Critical Care Time Critical Care Time Critical Care Time: Yes Total Critical Care Time: 40 Attestation: I spent greater than 40 minutes addressing this patient's immediate life threats. Please see MDM section of note. This time was spent engaged in work directly related to the patient's care, exclusive of separate procedures, and failure to initiate these interventions would have likely resulted in clinically significant or life threatening deterioration in the patient's condition. PFSH All Active Problems (Updated 09/30/24 @ 15:45 by Alexander Jones MD) Pulmonary infiltrate (Acute) Pulmonary embolism (Chronic) Stroke-like symptoms (Acute) Aortic stenosis, moderate (Acute) History of mitral valve repair (Acute) Cardiomyopathy (Acute) Chronic blood loss anemia (Chronic) CHF (congestive heart failure) (Chronic) CAD (coronary artery disease), kaw coronary artery (Chronic) Chronic atrial fibrillation (Chronic) Medical History Heart failure Type 2 diabetes mellitus Gastric ulcer with hemorrhage Insufficiency of tear film of both eyes Abnormal stool color Elevated PSA Malignant neoplasm of skin Nicotine dependence Malignant neoplasm of prostate HLD (hyperlipidemia) GERD (gastroesophageal reflux disease) Cervical radiculopathy Aortic stenosis Allergic rhinitis Surgical History History of tonsillectomy H/O heart surgery Family History Father Cancer Mother Cardiac pacemaker Diabetes Brother Hyperlipidemia Social History Smoking/Tobacco Use Status: Former Tobacco Use Quit Date: 05/10/22 Tobacco: How many years used: 62 Smoking risk assessment performed?: Yes Alcohol Intake: former Drug use: Never Substance use type: does not use current occupation: retired What is your relationship status?: Panel score (0-1 are the most socially isolated patients): 1 What type of physical activity do you participate in: walking Do you feel safe at home: Yes Do you feel safe in your relationship?: Yes
--- NOTE | 2024-09-30 12:00 | DI.CT_ITS ---
Exam(s) CT CHEST PE CTA EXAM: CT CHEST PE CTA CLINICAL HISTORY: chest pain, SOB. TECHNIQUE: Imaging Protocol: CT angiography of the chest was performed using pulmonary embolus moi col. Multi planar reconstructions were performed. CONTRAST MATERIAL: Intravenous: Omnipaque 350 Contrast volume: 100 cc COMPARISON: CT CT CHEST WO from 05/07/2022 CR XR PORTABLE CHEST AP from 09/30/2024 FINDINGS: CHEST: PULMONARY ARTERIES: There are subtle intraluminal filling defects within 1 of the distal pulmonary ar teries within the posterior basal segment of the right lower lobe. Consistent with pulmonary embolus at this level. There are no other intraluminal arterial filling defects in either lung. LUNGS: There is some subpleural infiltrate in the posterior basal segment of the right lower lobe. N o pleural effusion. Minimal increased markings are seen in the lateral basal segment of the left low er lobe.. There are no pleural effusions. MEDIASTINUM: There is no hilar nor mediastinal adenopathy. Visualized thyroid unremarkable. CARDIAC: Sternotomy wires. Mild cardiomegaly.Caliber of the thoracic aorta is within normal limits. There is no significant shift of the interventricular septum. PARTIALLY VISUALIZED UPPERMOST ABDOMEN: No prominent reflux of contrast into the intrahepatic IVC. Bilateral nephrolithiasis noted, nonobstructive. OSSEOUS: Vertebroplasty cement noted within compression fractures of T9 and L1.. IMPRESSION: 1. Subtle evidence of intraluminal defects consistent with pulmonary emboli in the distal right lower lobe vessel in the posterior basal segment of the right lower lobe. There is also subpleural infilt rate in the posterior basal segment of the right lower lobe, either infectious or element of pulmonar y infarct or a combination thereof. Pleural effusions. No obvious right heart strain. 2. Mild cardiomegaly. Sternotomy wires. Report called by myself to ER physician 09/30/2024 12:56 p.m. RADIATION DOSE DELIVERED: 111.32mGy.cm Total DLP DATA REPOSITORY: All CT scans at this facility are submitted to the National Radiology Data Registry (NRDR) Dose Index Registry (DIR) with the [employer] (ACR). RADIATION OPTIMIZATION: All CT scans at this facility use at least one of these dose optimization te chniques: automated exposure control; mA and/or kV adjustment per patient size (includes targeted exa ms where dose is matched to clinical indication); or iterative reconstruction.
[2024-09-30 12:02] LABS: ALT 25 U/L (16-63); AST 13 U/L (15-37); Albumin 3.8 g/dL (3.4-5.0); Alkaline Phosphatase 102 U/L (46-116); Anion Gap 6.2 mmol/L (3-11); BUN 20 mg/dL (7-18); CO2 27.8 mmol/L (21.0-32.0); Calcium 8.9 mg/dL (8.5-10.1); Chloride 109 mmol/L (98-107); Estimated GFR 75.14 (mL/min/1.73m2); Glucose 208 mg/dL (74-106); Magnesium 1.8 mg/dL (1.8-2.4); NT-proBNP 1210 pg/mL (<300); Potassium 4.3 mmol/L (3.5-5.1); Sodium 143 mmol/L (136-145); Total Protein 7.4 g/dL (6.4-8.2); Troponin I 12 ng/L (<or=76)
--- OUTSIDE RECORDS SUMMARY | 2024-09-30 12:05 | XMS_ITS ---
Author Organization [facility] Address [address] [place] [address] Care Team Providers Care Assistant Prosecuting Attorney Name Role Phone Bobby Das MD Primary Care Provider [phone] Active Problems Problem Noted Date Diagnosed Date Malignant neoplasm of prostate ([facility]) 018 Cancer Staging:Clinical stage from 11/19/2017:Stage IIB(cT2a, cN0, cM0, PSA: 12.8, Grade Group: 2) - Signed by Delores Gutierrez III, MD on 11/19/2017 Current Oncology Plans No current plan information found. Past Plans No past plan information found. Radiation Treatments * No radiation treatments are documented for this patient in [facility]. Treatments may have been administered in another system. Treatment Summaries Malignant neoplasm of prostate ([facility])* Prostate Cancer Treatment Summary & Care Plan Provided by Delores Gutierrez III, MD on 06/05/18 General Information Patient name Koko Zamora (home) Date of 1940 Age 77 y.o. Care Team Urology Surgeon Chino José MD Radiation Oncologist Delores Gutierrez MD Clinic Nurse Navigator Tere Adler RN Radiation Oncology Nurse Didier Law RNpersonal development coach Physician Bobby Das MD Cancer Characteristics Diagnosis Prostate Cancer Date of diagnosis 10/29/2017 Age 77 Stage/TNM Malignant neoplasm of prostate ([facility]) Staging form: Prostate, AJCC 8th Edition - Clinical stage from 11/19/2017: Stage IIB (cT2a, cN0, cM0, PSA: 12.8, Grade Group: 2) - Signed by Delores Gutierrez III, MD on 11/19/2017 Cancer type Adenocarcinoma Winifred score 3 + 4 = 7 Familial/Personal [...] 02/02/2018 - 02/27/2018 Number of treatments 20 Late/Communications Engineering Technician Effects Signs and symptoms of lingering or [...] about the following habits: Alcohol use The [employer] says patients who have completed [...] per week. Tobacco cessation You can call 8-489-OZYJ-NOW for help with a Quit Timber Sizer. You can also get more information at Boomlagoon.itsDapper. You may also be referred to a clinic through the cancer center. Call one of your nurses if you are ready for a referral. Future Follow Up Future appointments Continute follow-up with Dr. José Contacts and Resources PCP Bobby Das MD Genitourinary Cancer Transdisciplinary Team Navigator [facility] Work/Life Issues After Cancer: Many people look [...] to discuss your concerns. You may reach [facility] [employer] [facility] [employer] [facility] in the [facility] by calling: . In addition, survivors of cancer may experience issues with the areas listed below. If you have anyconcerns in these or other areas, please speak with your care team to find out how you can get helpwith them. Emotional and mental health School Fatigue Sexual functioning Fertility Other Memory or concentration loss Parenting Physical functioning Additional Resources: [facility] On[facility] Support Services at the [facility]. The [facility] provides counseling, social work, and help with nutrition. The [facility] can also provide you with an [employer] (ACS) Patient Navigator. The navigator has a wealth of information about living with cancer and cancer survivorship. Call us at [phone] or visit [facility]ITAL[facility] [email or web address] for more information on line. o [place] [facility] (VCSN). The [place] [facility] (VCSN) was founded bycancer survivors to create a voice for cancer survivors in [place]. Our survivor training and support program offers local groups for survivors in the areas of [facility], the [facility], [facility] and [facility]. For more information call [phone] or visit www.Dibbzsn.net [facility] o Steps to Wellness. Steps to Wellness is a program for survivors of cancer. You will be offered a medical evaluation, a physical therapy evaluation, and an exercise program. For more information, contact us at . o [facility] Diabetes Prevention Program. The [facility] Diabetes Prevention Program is for people at risk for developing type 2 diabetes and includes most people who are overweight. You will learn about healthyeating and physical activities that have been proven to lower the risk of developing diabetes. The program also provides a supportive atmosphere for lifestyle changes. The program is in-person and is led by a trained Lifestyle Timber Sizer. The program is a 12-month program that includes 16 rnk-ngjf-plis,weekly core sessions, followed by eight edp-lnbs-unpu, monthly sessions. It is offered three times a year. Locations vary through [facility]. Please call [phone] for more information or to enroll. o [...] priorities 7) relationships For more information call [phone]. o The [facility]'s Critical Access Hospital Resource [place] Level 3, [facility] [phone] o Visiting Nurse Association [facility] [phone] [facility] o [facility] [phone] Breast Cancer Support Group, Prostate Cancer Support Group, Wellness Program o [facility] [phone] Internet Resources o National Survivorship Resource Center http://www.cancer.org/treatment o National Coalition for Cancer Survivorship http://www.canceradvocacy.org o [facility] Forward Survivorship Library http://www.journeyforward.org
--- OUTSIDE RECORDS SUMMARY | 2024-09-30 12:05 | XMS_ITS | Encounter Summary ---
Author Organization [facility] Address [address] [place] [address] Care Team Providers Care Agricultural Engineering Technologist Name Role Phone Bobby Das MD Primary Care Provider [phone] Encounter Details Date Type Department Care Team (Late st Contact Info) Description 07/16/2019 Phlebotomy Only [facility] [address] [place] [address] Rate Examiner, Outpatient Malignant neoplasm of prostate ([facility]) (Primary Dx) Social History Tobacco Use Types Packs/Day Years Used Date Smoking Tobacco: Every Day Smokeless Tobacco: Never Sex and Gender Information Value Date Recorded Sex Assigned at Not on file Legal Sex Male 18:26 EDT Gender Identity Not on file Sexual Orientation [...] 0 - 6.5 ng/ml 07/16/2019 11:53 EDT [facility] Comment: Serum PSA concentration should not be interpreted as absolute evidence for the presence or absence of malignant disease. Assayed utilizing Siemens (GoPago) chemiluminescent technology. ??Values obtained by using different assay methods cannot be used interchangeably. Blood specimen (specimen) BLOOD SPECIMEN / Unknown 07/16/2019 9:30 EDT 07/16/2019 9:59 EDT us Aries Gutierrez MD CHEMISTRY & BLOOD GAS OR DERABLES Final Result [facility] [address] [place] [address] documented in this encounter Visit Diagnoses Diagnosis Malignant neoplasm of prostate ([facility]-CMS)- Primary Malignant neoplasm of prostate documented in this encounter Orders Lab Orders Without Results Count Last Ordered D ate First Ordered Date PSA TOTAL, DIAGNOSTIC 1 07/16/2019 documented in this encounter Care Teams Agricultural Engineering Technologist Relationship Specialty Start Date End Date Bobby Das MD [address] [place] [address],[address] [place] [address] PCP - General 07/06/15 documented as of this encounter
--- OUTSIDE RECORDS SUMMARY | 2024-09-30 12:05 | XMS_ITS | Encounter Summary ---
Author Organization [facility] Address [address] [place] [address] Care Team Providers Care Recovery Specialist Name Role Phone Bobby Das MD Primary Care Provider [phone] Encounter Details Date Type Department Care Team (Late st Contact Info) Description 08/28/2020 Lab Requisition [facility] Pathology & Laboratory Medicine - [address] [address] Outr Resulting Lab, Provider Social History Tobacco [...] rt-PCR Result NEGATIVE Negative 08/30/2020 14:36 EDT [facility] Comment: 2019-novel Coronavirus (2019-nCoV) [...] in accordance with CLIA regulations, College of English Pathologists (CAP) guidelines (Jan 27, 2020), and FDA guidance (Jan 08, 2020). This test is only for use under the Food and Drug Administration's Emergency Use Authorization. Swab ENTIRE NASOPHARYNX / Unknown 08/28/2020 9:58 EDT 08/28/2020 23:08 EDT us Provider Outr Resulting Lab MICROBIOLOGY - GENER AL ORDERABLES Final Result [facility] [place], [place] * COVID-19 TESTING (08/28/2020 9:58 EDT) Pathologist [facility] COVID-19 rt-PCR Result NEGATIVE Negative 08/30/2020 18:20 EDT [facility] Comment: 2019-novel Coronavirus (2019-nCoV) not [...] in accordance with CLIA regulations, College of English Pathologists (CAP) guidelines (Jan 27, 2020), and FDA guidance (Jan 08, 2020). This test is only for use under the Food and Drug Administration's Emergency Use Authorization. Performing Lab The [facility] 08/30/2020 18:20 EDT [facility] Swab 08/28/2020 9:58 EDT 08/28/2020 23:08 EDT us Provider Outr Resulting Lab MICROBIOLOGY - GENER AL ORDERABLES Final Result [facility] [address] [place] [address] [facility] [place] documented in this encounter Visit Diagnoses Not on filedocumented in this encounter Care Teams Recovery Specialist Relationship Specialty Start Date End Date Bobby Das MD [address] [address],[address] [place] [address] PCP - General 07/06/15 documented as of this encounter
--- OUTSIDE RECORDS SUMMARY | 2024-09-30 12:05 | XMS_ITS | Referral Summary ---
Author Organization [facility] Address [address] [place] [address] Care Team Providers Care Photoengraving Apprentice Name Role Phone Bobby Das MD Primary Care Provider [phone] Allergies Active Allergy Reactions Criticality Noted Date Comments Aspirin Other (See Comments) 11/19/2017 Upset stomach Medications rosuvastatin (CRESTOR) 40 mg tablet Take 40 mg by mouth daily. Active multivitamin (THERAGRAN) per tablet Take 1 Tab by mouth daily. Active FLUTICASONE PROPIONATE (FLONASE NASAL) by nasal route as needed. Active tamsulosin (FLOMAX) 0.4 mg capsule TAKE ONE CAPSULE BY MOUTH ONE TIME DAILY 30 capsule 8 03/04/2019 Active calcium carb/vit D2/minerals (CALCIUM CITRATE + ORAL) Take by mouth. Active Active Problems Problem Noted Date Diagnosed Date Malignant neoplasm of prostate ([facility]) 018 Cancer Staging:Clinical stage from 11/19/2017:Stage IIB(cT2a, [...] 7.52) 07/16/2019941 EDT Body Mass Index 27.57 07/16/2019941 EDT Plan of Treatment Not on file Insurance MEDICARE [facility] Care Teams Photoengraving Apprentice Relationship Specialty Start Date End Date Bobby Das MD [address] [place] [address],[address] [place] [address] PCP - General 07/06/15
--- OUTSIDE RECORDS SUMMARY | 2024-09-30 12:05 | XMS_ITS | Encounter Summary ---
Author Organization [facility] Address [address] [place] [address] Care Team Providers Care Mold Filling Operator Name Role Phone Bobby Das MD Primary Care Provider [phone] Encounter Details Date Type Department Care Team (Late st Contact Info) Description 04/12/2021 Lab Requisition [facility] Pathology & Laboratory Medicine - [address] [address] Outr Resulting Lab, Provider Social History Tobacco [...] 229 - 902 ng/dL 04/12/2021 22:19 EDT [facility] Blood VENOUS BLOOD / Unknown 04/12/2021 10:00 EDT 04/12/2021 21:02 EDT Narrative [facility] - 04/12/2021 22:19 EDT The results of this assay can be falsley elevated due to the consumption of Biotin. us Provider Outr Resulting Lab CHEMISTRY & BLOOD GA S ORDERABLES Final Result [facility] [address] [place] [address] documented in this encounter Visit Diagnoses Not on filedocumented in this encounter Care Teams Mold Filling Operator Relationship Specialty Start Date End Date Bobby Das MD [address] [place] [address],[address] [place] [address] PCP - General 07/06/15 documented as of this encounter
--- OUTSIDE RECORDS SUMMARY | 2024-09-30 12:05 | XMS_ITS | Encounter Summary ---
Author Organization [facility] Address [address] [place] [address] Care Team Providers Care Public Records Researcher Name Role Phone Bobby Das MD Primary Care Provider [phone] Encounter Details Date Type Department Care Team (Late st Contact Info) Description 08/03/2020 Lab Requisition [facility] Pathology & Laboratory Medicine - [address] [address] Outr Resulting Lab, Provider Social History Tobacco [...] rt-PCR Result NEGATIVE Negative 08/05/2020 0:18 EDT [facility] Comment: 2019-novel [...] in accordance with CLIA regulations, College of [place] Pathologists (CAP) guidelines (Jan 27, 2020), and FDA guidance (Jan 08, 2020). This test is only for use under the Food and Drug Administration's Emergency Use Authorization. Swab ENTIRE NASOPHARYNX / Unknown 08/03/2020 12:22 EDT 08/03/2020 22:21 EDT us Provider Outr Resulting Lab MICROBIOLOGY - GENER AL ORDERABLES Final Result [facility] [place] * COVID-19 TESTING (08/03/2020 12:22 EDT) COVID-19 rt-PCR Result NEGATIVE Negative 08/05/2020 2:34 EDT [facility] Comment: 2019-novel Coronavirus (2019-nCoV) not detected [...] in accordance with CLIA regulations, College of [place] Pathologists (CAP) guidelines (Jan 27, 2020), and FDA guidance (Jan 08, 2020). This test is only for use under the Food and Drug Administration's Emergency Use Authorization. Performing Lab The [facility] 08/05/2020 2:34 EDT [facility] Swab 08/03/2020 12:2 2 EDT 08/03/2020 22:21 EDT us Provider Outr Resulting Lab MICROBIOLOGY - GENER AL ORDERABLES Final Result [facility] [address] [place] [address] [facility] [place] documented in this encounter Visit Diagnoses Not on filedocumented in this encounter Care Teams Public Records Researcher Relationship Specialty Start Date End Date Bobby Das MD [address] [place] [address],[address] [place] [address] PCP - General 07/06/15 documented as of this encounter
--- OUTSIDE RECORDS SUMMARY | 2024-09-30 12:05 | XMS_ITS | Encounter Summary ---
Author Organization [facility] Address [address] [place] [address] Care Team Providers Care Construction Flagger Name Role Phone Bobby Das MD Primary Care Provider [phone] Encounter Details Date Type Department Care Team (Late st Contact Info) Description 10/03/2021 Lab Requisition [facility] Pathology & Laboratory Medicine - [address] [address] Bobby Das MD [address] [place] [address],[address] [place] [phone] Encounter for other general examination Social History [...] explore management options, if applicable. 10/08/2021 16:40 [facility] Final Diagnosis A. SKIN OF BUTTOCK, RIGHT, EXCISION: - Dense mixed inflammation with reactive epidermal hyperplasia and focal ulceration. See comment. 10/08/2021 16:40 [facility] Diagnosis Comment The excision consists [...] No foreign material is identified. 10/08/2021 16:40 [facility] Attestation By the signature below, the attending physician certifies that they have 1) personally conducted a gross and/or microscopic examination of the described specimen(s), and/or personally interpreted the results of laboratory testing of the described specimen(s), and 2) personally rendered or confirmed the above diagnosis. 10/08/2021 16:40 [facility] at 1640 Microscopic Description Sections [...] or multiple additional deeper sections. 10/08/2021 16:40 [facility] Clinical History Firm lesion not healing; foreign body granuloma 10/08/2021 16:40 [facility] Gross Description A. Received in [...] Toni Giordano 10/05/2021 8:15 10/08/2021 16:40 EST [facility] Performing Lab [facility] 16:40 EST [facility] Scanned Images 10/08/2021 16:40 EST [facility] Tissue TISSUE SPECIMEN FROM SKIN / Unknown 10/03/2021 15:36 EST 10/03/2021 22:34 EST us Bobby Das MD PATHOLOGY ORDERABLES Final Re sult [facility] [address] [place] [address] documented in this encounter Visit Diagnoses Diagnosis Encounter for other general examination documented in this encounter Care Teams Construction Flagger Relationship Specialty Start Date End Date Bobby Das MD [address] [place] [address],[address] [place] [address] PCP - General 07/06/15 documented as of this encounter
--- OUTSIDE RECORDS SUMMARY | 2024-09-30 12:05 | XMS_ITS | Clinical Summary ---
Author Organization [facility] Address [address] [place] [address] Care Team Providers Care Life Enrichment Director Name Role Phone Bobby Das MD Primary Care Provider [phone] Allergies Active Allergy Reactions Criticality Noted Date [...] Date Diagnosed Date Malignant neoplasm of prostate ([facility]) 018 Cancer Staging:Clinical stage from 11/19/2017:Stage IIB(cT2a, cN0, cM0, PSA: 12.8, Grade Group: 2) - Signed by Delores Gutierrez III, MD on 11/19/2017 Medical History Medical History Date Comments Cancer ([facility]) Hyperlipidemia Family History Medical History Relation Comments [...] 07/16/2019941 EDT Temperature 36.1 ??C (97 ??F) 07/16/2019 09 EDT Respiratory Rate - - Oxygen Saturation 96% 07/16/2019941 EDT Inhaled Oxygen Concentration - - Weight 81.1 kg (178 lb 12.8 oz) 07/16/2019 09 EDT Height 171.5 cm (5' 7.52) 07/16/2019941 EDT Body Mass Index 27.57 07/16/2019941 EDT Plan of Treatment Health Maintenance Due Date Last Done Comments RSV Immunization ( o r 60+ Years) (1 - 1-dose 75+ series) 2017 Fall Risk Screening 07/16/2020 07/16/2019, 8 COVID-19 Vaccine ( season) 2024 Insurance MEDICARE [facility] Care Teams Life Enrichment Director Relationship Specialty Start Date End Date Bobby Das MD [address] [place] [address],[address] [place] [address] PCP - General 07/06/15
--- OUTSIDE RECORDS SUMMARY | 2024-09-30 12:06 | XMS_ITS | Encounter Summary ---
Author Organization [facility] Address [address] [place] [address] Care Team Providers Care Bar Waiter/Waitress Name Role Phone Bobby Das MD Primary Care Provider [phone] Reason for Visit * Reason Comments Other Encounter Details Date Type Department Care Team (Late st Contact Info) Description 03/04/2019 Refill [facility] Radiation Oncology - [address] [id number] Aries Gutierrez MD [address] [place] [address], [address] [place] [address] Other Social History Tobacco Use Types Packs/Day Years Used Date Smoking Tobacco: Every Day Smokeless Tobacco: Never Sex and Gender Information Value Date Recorded Sex Assigned at Not on file Legal Sex Male 18:26 EDT Gender Identity Not on file Sexual Orientation Not on file documented as of this encounter Ordered Prescriptions Prescription Sig Dispense Quantity Refills Last Filled Start Date End Date tamsulosin (FLOMAX) 0.4 mg capsule TAKE ONE [...] documented as of this encounter Care Teams Bar Waiter/Waitress Relationship Specialty Start Date End Date Bobby Das MD [address] [place] [address] ,[address] [place] [address] PCP - General 07/06/15 documented as of this encounter
--- OUTSIDE RECORDS SUMMARY | 2024-09-30 12:06 | XMS_ITS | Encounter Summary ---
Author Organization [facility] Address [address] [place] [address] Care Team Providers Care Quill Cleaning Machine Operator Name Role Phone Bobby Das MD Primary Care Provider [phone] Reason for Visit * Reason Onset Date Comments Follow-up 02/24/2018 Appointment Related 02/24/2018 scheduled ap pt w/ nursing for Lupron injection on 04/06 Encounter Details Date Type Department Care Team (Late st Contact Info) Description 02/24/2018 Telephone [facility] Urology - [facility] [address] [place], [place] [id number] Ama Corea, RN Follow-up; Appointment Related (scheduled [...] on 04/06; pt prefers it at the [place] office * Telephone Encounter - Ama Corea, [...] on filedocumented in this encounter Care Teams Quill Cleaning Machine Operator Relationship Specialty Start Date End Date Bobby Das MD [address] [place] [address],[address] [place] [address] PCP - General 07/06/15 documented as of this encounter
--- OUTSIDE RECORDS SUMMARY | 2024-09-30 12:06 | XMS_ITS | Encounter Summary ---
Author Organization [facility] Address [facility] [place] [address] Care Team Providers Care Shoe Salesperson Name Role Phone Bobby Das MD Primary Care Provider [phone] Encounter Details Date Type Department Care Team (Late st Contact Info) Description 12/04/2023 Orders Only Cardiology at [address] [address] Christian Figueroa MD [facility] [place] [address] Atrial fibrillation, unspecified type Social History Tobacco Use Types Packs/Day Years Used Date Smoking Tobacco: Former Cigarettes 0.5 50 0 05/15/1972 - 05/15/2022 Smokeless Tobacco: Never Alcohol Use Standard Drinks/Week Comments Not Currently 42 (1 standard drink = 0.6 oz pure alcohol) Last alcohol use in May 2022 [facility] Utilities Answer Date Recorded In the past 12 months has [employer] electric, gas, oil, or water [employer] threatened to shut off services in your [...] place to sleep or slept in a detention (including now)? No 11/08/2023 DH IPV Inpatient [...] type documented in this encounter Care Teams Shoe Salesperson Relationship Specialty Start Date End Date Bobby Das MD [address] [place] [address] [place] [address] PCP - General 10/02/10 documented as of this encounter
--- OUTSIDE RECORDS SUMMARY | 2024-09-30 12:06 | XMS_ITS ---
Author Organization [facility] Address [facility] [place] [address] Care Team Providers Care Tactical/Mobile Watch Officer Name Role Phone Bobby Das MD Primary Care Provider [phone] Active Problems Problem Noted Date Diagnosed Date [...] bleed 12/08/2022 Coronary artery disease invo lving [place] coronary artery of [place] heart without angina pectoris 06/13/2022 Overview (06/13/2022): [...] fraction this is a borderline indication for THEATRE PROFESSOR-D. I am going to set up an [...] therapy possibly including AV node ablation and THEATRE PROFESSOR-D. Permanent atrial fibrillation 06/13/2022 Assessment & Plan [...] for consideration of AV node ablation and THEATRE PROFESSOR-D Limb ischemia 05/15/2022 History of basal cell carcinoma 05/31/2014 Basal cell carcinoma 03/29/2014 Verruca vulgaris 03/29/2014 AK (actinic keratosis) 03/29/2014 GIB (gastrointestinal bleeding) 06/28/2011 Overview (08/09/2012): Secondary to 3-4 ASA/day, required admission and blood transfusion MVP (mitral valve prolapse) s/p repair 1 Overview (08/09/2012): Surgery done at [facility] in 2000 Hypertriglyceridemia 06/28/2011 Adhesive capsulitis of L shoulder 06/28/2011 Alcohol use 06/28/2011 Current Oncology Plans No current plan information found. Past Plans No past plan information found. Radiation Treatments * No radiation treatments are documented for this patient in [facility]. Treatments may have been administered in another system. Lifetime Dose Tracking * Chemical Lifetime Dose Automatic Entry Manual Entr y DLP (Dose Length Product) 1,085 mGy-cm 1,085 mGy-cm 0 mGy-cm CTDI (CT Dose Index) Min 0.79 mGy 0.79 mGy 0 m Gy CTDI (CT Dose Index) Max 9.35 mGy 9.35 mGy 0 m Gy
--- OUTSIDE RECORDS SUMMARY | 2024-09-30 12:06 | XMS_ITS | Encounter Summary ---
Author Organization [facility] Address [address] [place] [address] Care Team Providers Care Instrument Mechanics Supervisor Name Role Phone Bobby Das MD Primary Care Provider [phone] Reason for Visit * Reason Onset Date Comments Diagnostic Imaging Report 11/25/2017 Encounter Details Date Type Department Care Team (Late st Contact Info) Description 11/25/2017 Telephone [facility] Radiation Oncology - [facility] [address] [place] [address] Lynn Vargas RN [address] [place] [address] Diagnostic Imaging Report Social History Tobacco Use Types Packs/Day Years Used Date Smoking Tobacco: Every Day Smokeless Tobacco: Never Sex and Gender Information Value Date Recorded Sex Assigned at Not on file Legal Sex Male 18:26 EDT Gender Identity Not on file Sexual Orientation Not on file documented as of this encounter Miscellaneous Notes * Telephone Encounter - Lynn Vargas RN - 11/25/2017 1436 [address] Keira from Dr. Das's office called [...] filedocumented in this encounter Care Teams Instrument Mechanics Supervisor Relationship Specialty Start Date End Date Bobby Das MD [address] [place] [address],[address] [place] [address] PCP - General 07/06/15 documented as of this encounter
--- OUTSIDE RECORDS SUMMARY | 2024-09-30 12:06 | XMS_ITS | Encounter Summary ---
Author Organization [facility] Address [address] [place] [address] Care Team Providers Care Rotary Drum Tanner Name Role Phone Bobby Das MD Primary Care Provider [phone] Encounter Details Date Type Department Care Team (Late st Contact Info) Description 10/29/2017 Results Only [facility] Urology - [address] [address] Chino José MD [address] [place] [address], [address] [place] [address] Social History Tobacco Use Types [...] ? ETTA BAH ? Accession #: ? [id number] ? : ? 1940 (Age: 77) ??M [...] neoplasia) (ANDREINA: ? atypical small acinar proliferation) Winifred score can be grouped and range from Prognostic Grade Group I (most favorable) to Prognostic Grade Group V (least favorable). [place] score less than or equal to 6: Prognostic Grade Group I [place] score 3+4=7: Prognostic Grade Group II [place] score 4+3=7: Prognostic Grade Group III [place] score 8: Prognostic Grade Group IV Winif[place] score 9-10: Prognostic Grade Group V References for Prognostic Grade Groups: J Clin Hercules 2012;30:4219-3125 Joey CASTAÑEDA. The [place] Grading System (A Complete Guide for Pathologists and Clinicians), LWW, 2013 Serg PM, Sumaya PW, Edward AW, Joey CASTAÑDEA. Prognostic [place] Grade Grouping: Data based on the modified [...] ??Histologic grade: ?3 + 3 ?- ??Primary [place] pattern: ? Grade 3 ?- ??Secondary Winifred pattern: ? Grade 3 ?- ??Total [place] score: ?6 ? - ??Tumor contiguity: ? [...] + 4 (30% pattern 4) ?- ??Primary Winifred pattern: ? Grade 3 ?- ??Secondary Winifred [...] Ali 10/30/2017 9:13 AM End of Report [facility] 10/29/2017 8:21 EST 10/30/2017 8:21 EST us Chino José MD PATHOLOGY ORDERABLES Final Re sult [facility] [address] [place] [address] documented in this encounter Visit Diagnoses Not on filedocumented in this encounter Care Teams Rotary Drum Tanner Relationship Specialty Start Date End Date Bobby Das MD [address] [place] [address],[address] [place] [address] PCP - General 07/06/15 documented as of this encounter
--- OUTSIDE RECORDS SUMMARY | 2024-09-30 12:06 | XMS_ITS | Encounter Summary ---
Author Organization [facility] Address [address] [place] [address] Care Team Providers Care Waste Treatment Operator Name Role Phone Bobby Das MD Primary Care Provider [phone] Encounter Details Date Type Department Care Team (Late st Contact Info) Description 11/20/2017 Results Only Imaging [facility] [phone] Unknown, Provider, MD Social History Tobacco Use Types Packs/Day Years [...] filedocumented in this encounter Care Teams Waste Treatment Operator Relationship Specialty Start Date End Date Bobby Das MD [address] [place] [address],[address] [place] [address] PCP - General 07/06/15 documented as of this encounter
--- OUTSIDE RECORDS SUMMARY | 2024-09-30 12:06 | XMS_ITS | Encounter Summary ---
Author Organization [facility] Address [address] [place] [address] Care Team Providers Care Economics Analyst Name Role Phone Bobby Das MD Primary Care Provider [phone] Encounter Details Date Type Department Care Team (Late st Contact Info) Description 06/17/2019 Results Only Imaging [facility] [phone] Unknown, Provider, MD Social History Tobacco Use [...] on filedocumented in this encounter Care Teams Economics Analyst Relationship Specialty Start Date End Date Bobby Das MD [address] [place] [address],[address] [place] [address] PCP - General 07/06/15 documented as of this encounter
--- OUTSIDE RECORDS SUMMARY | 2024-09-30 12:06 | XMS_ITS | Clinical Summary ---
Author Organization [facility] Address [facility] [place] [address] Care Team Providers Care International Account Manager Name Role Phone Bobby Das MD Primary Care Provider [phone] Allergies Active Allergy Reactions Criticality Noted Date [...] daily. Active fluticasone propionate (FLONASE) 50 mcg/actuation [place], Suspension 1 spray by Each Nare route [...] bleed 12/08/2022 Coronary artery disease invo lving galena coronary artery of galena heart without angina pectoris 06/13/2022 Overview (06/13/2022): [...] fraction this is a borderline indication for STRATEGIC PLANNING MANAGER-D. I am going to set up an [...] therapy possibly including AV node ablation and STRATEGIC PLANNING MANAGER-D. Permanent atrial fibrillation 06/13/2022 Assessment & Plan [...] for consideration of AV node ablation and STRATEGIC PLANNING MANAGER-D Limb ischemia 05/15/2022 History of basal cell carcinoma 05/31/2014 Basal cell carcinoma 03/29/2014 Verruca vulgaris 03/29/2014 AK (actinic keratosis) 03/29/2014 GIB (gastrointestinal bleeding) 06/28/2011 Overview (08/09/2012): Secondary to 3-4 ASA/day, required admission and blood transfusion MVP (mitral valve prolapse) s/p repair 1 Overview (08/09/2012): Surgery done at [facility] in 2000 Hypertriglyceridemia 06/28/2011 Adhesive [...] alcohol) Last alcohol use in May 2022 [facility] Utilities Answer Date Recorded In the past 12 months has [employer], oil, or water [employer] threatened to shut off services in your [...] place to sleep or slept in a half-way (including now)? No 11/08/2023 DH IPV Inpatient [...] Health Maintenance Due Date Last Done Comments Pneumoccocal Vaccine: 65+ (1 of 2 - PCV) 1948 Tetanus/Diphtheria/Pertussis Vaccines (1 - Tdap) 1961 Zoster vaccine (1 of 2) 1992 Advance Directive 1997 RSV Vaccine (1 - 1-dose 75+ series) 2017 Covid-19 Vaccine (4 - 2023-2 5 season) [...] * COLONOSCOPY (12/09/2022 11:22 AM EST) COLONOSCOPY [facility] Endoscopy Procedure Date: 12/09/2022 11:22 AM ? Patient Name: Koko Zamora ? Date of : 1940 ? Age: 82 ? Order #: [id number] ? Instrument Name: ? Procedure: ? Colonoscopy Indications: ? Hematochezia Providers: ? Giovani Ponce, Alan August, Referring MD: ?Stu Padilla Medicines: ? Propofol per Anesthesia [...] Status decision made by: Two - Attending March Content of discussion: will confirm with family [...] Status decision made by: Patient Care Teams International Account Manager Relationship Specialty Start Date End Date Bobby Das MD [address] [place] [address] [place] [address] PCP - General 10/02/10
--- OUTSIDE RECORDS SUMMARY | 2024-09-30 12:06 | XMS_ITS | Encounter Summary ---
Author Organization [facility] Address [address] [place] [address] Care Team Providers Care Manager Customer Service Name Role Phone Bobby Das MD Primary Care Provider [phone] Reason for Visit * Reason Onset Date Comments Follow-up 03/06/2018 Encounter Details Date Type Department Care Team (Late st Contact Info) Description 03/06/2018 Telephone [facility] Radiation Oncology - [facility] [address] [place] [address] Rupal Rojas RN [address] [place] [address] Follow-up Social History Tobacco Use Types Packs/Day Years Used Date Smoking Tobacco: Every Day Smokeless Tobacco: Never Sex and Gender Information Value Date Recorded Sex Assigned at Not on file Legal Sex Male 18:26 EDT Gender Identity Not on file Sexual Orientation Not on file documented as of this encounter Miscellaneous Notes * Telephone Encounter - Rupal Rojas RN - 03/06/2018 1329 EDT I called and spoke with Koko [...] filedocumented in this encounter Care Teams Manager Customer Service Relationship Specialty Start Date End Date Bobby Das MD [address] [place] [address],[address] [place] [address] PCP - General 07/06/15 documented as of this encounter
--- OUTSIDE RECORDS SUMMARY | 2024-09-30 12:06 | XMS_ITS | Encounter Summary ---
Author Organization [facility] Address [address] [place] [address] Care Team Providers Care Laboratory Analyst Name Role Phone Bobby Das MD Primary Care Provider [phone] Reason for Visit * Reason Onset Date Comments Cancer 02/16/2018 Encounter Details Date Type Department Care Team (Late st Contact Info) Description 02/16/2018 Orders Only [facility] Radiation Oncology - [address] [id number] Isela Law, DION Malignant neoplasm of prostate [...] monitoring documented in this encounter Care Teams Laboratory Analyst Relationship Specialty Start Date End Date Bobby Das MD [address] [place] [address],[address] [place] [phone] PCP - General 07/06/15 documented as of this encounter
--- OUTSIDE RECORDS SUMMARY | 2024-09-30 12:06 | XMS_ITS | Encounter Summary ---
Author Organization [facility] Address [address] [place] [address] Care Team Providers Care Green Material Value Added Assessor Name Role Phone Bobby Das MD Primary Care Provider [phone] Reason for Visit * Reason Onset Date Comments Prostate Cancer 11/20/2017 Encounter Details Date Type Department Care Team (Late st Contact Info) Description 11/20/[address] [facility] Cancer Center Radiation Oncology - [address] [phone] Aries Gutierrez MD [address] [facility], [address] [place] [address] Social History Tobacco Use Types [...] Refills Last Filled Start Date End Date bicalutamide (CASODEX) 50 mg tablet Take 1 Tab by mouth daily. Don't start taking until instructed by Dr. Gutierrez 28 Tab 11/20/2017 8 documented in this encounter Plan of Treatment Not on file documented as of this encounter Visit Diagnoses Not on filedocumented in this encounter Care Teams Green Material Value Added Assessor Relationship Specialty Start Date End Date Bobby Das MD [address] [place] [address],[address] [place] [address] PCP - General 07/06/15 documented as of this encounter
--- OUTSIDE RECORDS SUMMARY | 2024-09-30 12:06 | XMS_ITS | Encounter Summary ---
Author Organization [facility] Address [address] [place] [address] Care Team Providers Care Therapy Technician Name Role Phone Unknown, Provider Primary Care Provider Unava ilable Encounter Details Date Type Department Care Team (Latest Contact Info) Description 07/03/2015 12:54 EDT - 07/03/2015 23:59 EDT Hospital Encounter [address] [address] Unknown, ProviderMD Discharge Disposition: Home or Self [...] filedocumented in this encounter Care Teams Therapy Technician Relationship Specialty Start Date End Date Unknown, ProviderMD PCP - General 07/03/15 07/05/15 documented as of this encounter
--- OUTSIDE RECORDS SUMMARY | 2024-09-30 12:06 | XMS_ITS | Encounter Summary ---
Author Organization [facility] Address [address] [place] [address] Care Team Providers Care Digital Production Artist Name Role Phone Bobby Das MD Primary Care Provider [phone] Reason for Visit * Reason Onset Date Comments Medication Management 02/16/2018 Encounter Details Date Type Department Care Team (Late st Contact Info) Description 02/16/2018 Orders Only [facility] Radiation Oncology - [facility] [address] [place], [place] [id number] Isela Law RN Social History Tobacco Use Types Packs/Day [...] End Date tamsulosin (FLOMAX) 0.4 mg capsule Take 1 Cap by mouth daily. 30 Cap 11 02/16/2018 03/04/2019 documented in this encounter Plan of Treatment Not on file documented as of this encounter Visit Diagnoses Not on filedocumented in this encounter Care Teams Digital Production Artist Relationship Specialty Start Date End Date Bobby Das MD [address] [place] [address],[address] [place] [phone] PCP - General 07/06/15 documented as of this encounter
--- OUTSIDE RECORDS SUMMARY | 2024-09-30 12:06 | XMS_ITS | Encounter Summary ---
Author Organization [facility] Address [address] [place] [address] Care Team Providers Care Process Automation Engineer Name Role Phone Bobby Das MD Primary Care Provider [phone] Encounter Details Date Type Department Care Team (Latest Contact Info) Description 10/29/2017 9:35 EST - 10/29/2017 23:59 EST Hospital Encounter [address] [address] Unknown, Provider, MD Discharge Disposition: Home or [...] filedocumented in this encounter Care Teams Process Automation Engineer Relationship Specialty Start Date End Date Bobby Das MD [address] [place] [address],[address] [place] [address] PCP - General 07/06/15 documented as of this encounter
--- OUTSIDE RECORDS SUMMARY | 2024-09-30 12:06 | XMS_ITS | Encounter Summary ---
Author Organization [facility] Address [address] [place] [address] Care Team Providers Care Tanning Wheel Filler Name Role Phone Bobby Das MD Primary Care Provider [phone] Encounter Details Date Type Department Care Team (Latest Contact Info) Description 04/23/2018 15:48 EDT - 04/23/2018 23:59 EDT Hospital Encounter [address] [address] Unknown, Provider, Discharge Disposition: Home or Self Care Social History Tobacco Use Types Packs/Day Years Used Date Smoking Tobacco: Every Day Smokeless Tobacco: Never Sex and Gender Information Value Date Recorded Sex Assigned at Not on file Legal Sex Male 18:26 EDT Gender Identity Not on file Sexual Orientation Not on file documented as of this encounter Medications at Time of Discharge FLUTICASONE PROPIONATE (FLONASE NASAL) by nasal route [...] on filedocumented in this encounter Care Teams Tanning Wheel Filler Relationship Specialty Start Date End Date Bobby Das MD [address] [place] [address],[address] [place] [address] PCP - General 07/06/15 documented as of this encounter
--- OUTSIDE RECORDS SUMMARY | 2024-09-30 12:06 | XMS_ITS | Encounter Summary ---
Author Organization [facility] Address [address] [place] [address] Care Team Providers Care Date Night Caregiver Name Role Phone Bobby Das MD Primary Care Provider [phone] Encounter Details Date Type Department Care Team (Late st Contact Info) Description 01/16/2018 Results Only [facility] Radiation Oncology - [address] [phone] Aries Gutierrez MD [address] [place] [address], [address] [place] [phone] Social History Tobacco Use Types Packs/Day Years [...] on filedocumented in this encounter Care Teams Date Night Caregiver Relationship Specialty Start Date End Date Bobby Das MD [address] [place] [address],[address] [place] [address] PCP - General 07/06/15 documented as of this encounter
--- OUTSIDE RECORDS SUMMARY | 2024-09-30 12:06 | XMS_ITS | Encounter Summary ---
Author Organization [facility] Address [address] [place] [address] Care Team Providers Care Vice President Payer Name Role Phone Bobby Das MD Primary Care Provider [phone] Encounter Details Date Type Department Care Team (Late st Contact Info) Description 02/25/2018 Documentation Visit [facility] Radiation Oncology - [facility] [place] [address] [place] [address] Lynn Vargas RN [address] [place] [address] Social History Tobacco Use Types Packs/Day Years Used Date Smoking Tobacco: Every Day Smokeless Tobacco: Never Sex and Gender Information Value Date Recorded Sex Assigned at Not on file Legal Sex Male 18:26 EDT Gender Identity Not on file Sexual Orientation Not on file documented as of this encounter Progress Notes * Lynn Vargas RN - 02/25/2018 8713 EDT Koko Zamora requested to be seen [...] on filedocumented in this encounter Care Teams Vice President Payer Relationship Specialty Start Date End Date Bobby Das MD [address] [place] [address],[address] [place] [address] PCP - General 07/06/15 documented as of this encounter
--- OUTSIDE RECORDS SUMMARY | 2024-09-30 12:06 | XMS_ITS | Encounter Summary ---
Author Organization [facility] [place] [address] Care Team Providers Care Pcmh Specialist Name Role Phone Bobby Das MD Primary Care Provider [phone] Encounter Details Date Type Department Care Team (Late st Contact Info) Description 12/08/2023 Telephone Cardiology at [address] [phone] Ama Leblanc Social History Tobacco Use Types Packs/Day Years Used Date Smoking Tobacco: Former Cigarettes 0.5 50 0 05/15/1972 - 05/15/2022 Smokeless Tobacco: Never Alcohol Use Standard Drinks/Week Comments Not Currently 42 (1 standard drink = 0.6 oz pure alcohol) Last alcohol use in May 2022 [facility] Utilities Answer Date Recorded In the past 12 months has [employer], gas, oil, or water [employer] threatened to shut off services in your [...] on filedocumented in this encounter Care Teams Pcmh Specialist Relationship Specialty Start Date End Date Bobby Das MD [address] [place] [address] [place] [address] PCP - General 10/02/10 documented as of this encounter
--- OUTSIDE RECORDS SUMMARY | 2024-09-30 12:06 | XMS_ITS | Encounter Summary ---
Author Organization [facility] Address [address] [place] [address] Care Team Providers Care Maintenance Instructor Name Role Phone Bobby Das MD Primary Care Provider [phone] Reason for Referral * Laboratory Services (Routine) - Closed Specialty Diagnoses / Procedures [facility] To Contact Diagnoses Malignant neoplasm of prostate (HCC-CMS) Procedures PSA TOTAL, DIAGNOSTIC Aries Gutierrez MD Phone: tel: fax: Referral ID Status Reason Start Date Expiration Date Visits Re quested Visits Authorized [id number] Closed 07/11/2019 1 1 Encounter Details Date Type Department Care Team (Late st Contact Info) Description 01/08/2019 Documentation Visit [facility] Cancer Center Radiation Oncology - [address] [phone] Aries Gutierrez MD [address] [place] [address], [address] [place] [address] Malignant neoplasm of prostate (HCC-CMS) [...] prostate documented in this encounter Care Teams Maintenance Instructor Relationship Specialty Start Date End Date Bobby Das MD [address] [place] [place] [address],[address] [place] [phone] PCP - General 07/06/15 documented as of this encounter
--- OUTSIDE RECORDS SUMMARY | 2024-09-30 12:06 | XMS_ITS | Encounter Summary ---
Author Organization [facility] Address [address] [place] [address] Care Team Providers Care Financial Analyst Accountant Name Role Phone Bobby Das MD Primary Care Provider [phone] Reason for Visit * Reason Comments Prostate Cancer Follow up Encounter Details Date Type Department Care Team (Late st Contact Info) Description 07/16/2019 9:45 EDT Office Visit [facility] Cancer Center Radiation Oncology - [address] [phone] Aries Gutierrez MD [address] [place] [address], [address] [place] [address] Malignant neoplasm of prostate (HCC-CMS) [...] DATE OF SERVICE: 07/16/2019 DIAGNOSIS AND STAGE: [id number], PSA 12.8 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 He [...] point. Delores stern is being evaluated at [facility] next week for possible tuboplasty. [...] prepared with voice recognition software. Please excuse vp scientific affairs errors. documented in this encounter Plan of Treatment Not on file documented as of this encounter Visit Diagnoses Diagnosis Malignant neoplasm of prostate (HCC-CMS)- Primary Malignant neoplasm of prostate documented in this encounter Historical Medications * This list may reflect changes made after this encounter. calcium carb/vit D2/minerals (CALCIUM CITRATE + ORAL) Take by mouth. added in this encounter Care Teams Financial Analyst Accountant Relationship Specialty Start Date End Date Lippmann, Michael, MD [address] [place] [address],[address] [place] [address] PCP - General 07/06/15 documented as of this encounter
--- OUTSIDE RECORDS SUMMARY | 2024-09-30 12:06 | XMS_ITS | Encounter Summary ---
Author Organization [facility] Address [address] [place] [address] Care Team Providers Care Master Planner Name Role Phone Abby Das MD Primary Care Provider [phone] Encounter Details Date Type Department Care Team (Late st Contact Info) Description 04/22/2018 Results Only [facility]- [facility] [phone] Abby Das MD [address] [place] [address],[address] [place] [address] Social History Tobacco Use Types [...] when reading/interpret ing unformatted reports. Name: ? ETAT BAH ? Accession #: ? [id number] ? : ? 1940 (Age: 77) ??M [...] (ASCP) 04/23/2018 10:08 AM End of Report [facility] 04/22/2018 8:40 EDT 04/23/2018 8:40 EDT us Abby Das MD PATHOLOGY ORDERABLES Final Re sult [facility] [address] [place] [address] documented in this encounter Visit Diagnoses Not on filedocumented in this encounter Care Teams Master Planner Relationship Specialty Start Date End Date Abby Dsa MD [address] [place] [address],[address] [place] [phone] PCP - General 07/06/15 documented as of this encounter
--- OUTSIDE RECORDS SUMMARY | 2024-09-30 12:06 | XMS_ITS | Encounter Summary ---
Author Organization [facility] Address [address] [place] [address] Care Team Providers Care Surgical Nurse Name Role Phone Bobby Das MD Primary Care Provider Encounter Details Date Type Department Care Team (Late st Contact Info) Description 01/16/2018 Documentation Visit [facility] Radiation Oncology - [facility] [address] [place] [address] Santhosh Cosby Social History Tobacco Use Types Packs/Day Years Used Date Smoking Tobacco: Every Day Smokeless Tobacco: Never Sex and Gender Information Value Date Recorded Sex Assigned at Not on file Legal Sex Male 18:26 EDT Gender Identity Not on file Sexual Orientation Not on file documented as of this encounter Progress Notes * Santhosh Cosby - 01/16/2018 2394 EST SOCIAL WORK ASSESSMENT: Amount of Distress: [...] Prostate Cancer Living Arrangements: Pt lives in [place], [place] with his . They operate a [...] social work as needed. ASH Antonio phone [phone] pager [phone] documented in this encounter Plan of Treatment Not on file documented as of this encounter Visit Diagnoses Not on filedocumented in this encounter Care Teams Surgical Nurse Relationship Specialty Start Date End Date Bobby Das MD [address] [place] [address],[address] [place] [address] PCP - General 07/06/15 documented as of this encounter
--- OUTSIDE RECORDS SUMMARY | 2024-09-30 12:06 | XMS_ITS | Encounter Summary ---
Author Organization [facility] Address [address] [place] [address] Care Team Providers Care Blast Furnace Operator Name Role Phone Bobby Das MD Primary Care Provider [phone] Reason for Visit * Reason Onset Date Comments Medication Management 11/21/2017 Encounter Details Date Type Department Care Team (Late st Contact Info) Description 11/21/2017 Orders Only [facility] Radiation Oncology - [facility] [address] [place], [place] [phone] Isela Law RN Social History Tobacco Use [...] Refills Last Filled Start Date End Date ciprofloxacin HCl (CIPRO) 500 mg tablet Take 1 Tab by mouth 2 times daily. Start Cipro the night prior to your planned procedure. 7 Tab 01/07/2018 8 documented in this encounter Plan of Treatment Not on file documented as of this encounter Visit Diagnoses Not on filedocumented in this encounter Care Teams Blast Furnace Operator Relationship Specialty Start Date End Date Bobby Das MD [address] [place] [address],[address] [place] [address] PCP - General 07/06/15 documented as of this encounter
--- OUTSIDE RECORDS SUMMARY | 2024-09-30 12:06 | XMS_ITS | Encounter Summary ---
Author Organization [facility] Address [address] [place] [address] Care Team Providers Care Sales Representative [employer] Name Role Phone Bobby Das MD Primary Care Provider [phone] Reason for Visit * Reason Comments Cancer Encounter Details Date Type Department Care Team (Late st Contact Info) Description 02/06/2018 Radiation Therapy Visit [facility] Radiation Oncology - [address] [place] [address] [place] [address] Lynn Vargas RN [address] [place] [address] Malignant neoplasm of prostate (HCC-CMS) (Primary Dx) [...] Assessment Completed By: Lynn Vargas RN (02/06/18 4931) Radiation Therapy: Cumulative RT Dose 1500 cGy [...] in this encounter Care Teams Sales Representative [employer] Relationship Specialty Start Date End Date Bobby Das MD [address] [place] [address] ,[address] [place] [address] PCP - General 07/06/15 documented as of this encounter
--- OUTSIDE RECORDS SUMMARY | 2024-09-30 12:06 | XMS_ITS | Encounter Summary ---
Author Organization [facility] Address [address] [place] [address] Care Team Providers Care Staffing Administrator Name Role Phone Bobby Das MD Primary Care Provider [phone] Reason for Visit * Reason Comments Prostate Cancer Encounter Details Date Type Department Care Team (Late st Contact Info) Description 11/19/2017 11:00 EST Office Visit [facility] Cancer Center Radiation Oncology - [address] [phone] Aries Gutierrez MD [address] [place] [address], [address] [place] [address] Malignant neoplasm of prostate (HCC-CMS) [...] Dr. José. Primary Site, Histopathology and Stage: [id number], PSA 12.8 Winifred score 3+4 = 7 [...] 2/12 core biopsies with evidence of tumor, Kearney score 3+3 disease at the left base, Winifred score 3+4 disease at the left apex, he had ANDREINA/pin in another core biopsy from the left apex. His pathology was reviewed here at [facility] which was confirmatory. A bone scan [...] Social History: He is and lives in [facility]. He and his own and operate [...] the more recent data based on the [facility] trial that reveals it 5 years individuals [...] bone scan which will be done at [facility] tomorrow. Once that result [...] prepared with voice recognition software. Please excuse adding machine servicer errors documented in this encounter Plan of Treatment Not on file documented as of this encounter Visit Diagnoses Diagnosis Malignant neoplasm of prostate (HCC-CMS)- Primary Malignant neoplasm of prostate documented in this encounter Historical Medications * This list may reflect changes made after this encounter. FLUTICASONE PROPIONATE (FLONASE NASAL) by nasal route as needed. multivitamin (THERAGRAN) per tablet Take 1 Tab by mouth daily. rosuvastatin (CRESTOR) 40 mg tablet Take 40 mg by mouth daily. ascorbic acid, vitamin C, (VITAMIN C) 500 mg tablet Take 500 mg by mouth daily. 02/03/2018 added in this encounter Care Teams Staffing Administrator Relationship Specialty Start Date End Date Bobby Das MD [address] [place] [address],[address] [place] [address] PCP - General 07/06/15 documented as of this encounter
--- OUTSIDE RECORDS SUMMARY | 2024-09-30 12:06 | XMS_ITS | Encounter Summary ---
Author Organization [facility] Address [address] [place] [address] Care Team Providers Care Fluid Power Mechanic Name Role Phone Bobby Das MD Primary Care Provider [phone] Reason for Visit * Reason Comments Cancer Encounter Details Date Type Department Care Team (Latest Contact Info) Description 02/24/2018 Radiation Therapy Visit [facility] Radiation Oncology - [address] [address] Isela Law, DION Malignant neoplasm [...] Diagnosis Malignant neoplasm of prostate ([facility])- Primary Malignant neoplasm of prostate Androgen deprivation therapy Encounter for therapeutic drug monitoring documented in this encounter Care Teams Fluid Power Mechanic Relationship Specialty Start Date End Date Bobby Das MD [address] [place] [address],[address] [place] [address] PCP - General 07/06/15 documented as of this encounter
--- OUTSIDE RECORDS SUMMARY | 2024-09-30 12:06 | XMS_ITS | Encounter Summary ---
Author Organization [facility] Address [address] [place] [address] Care Team Providers Care Injection Operator Name Role Phone Bobby Das MD Primary Care Provider Encounter Details Date Type Department Care Team (Late st Contact Info) Description 07/16/2019 9:18 EDT - 07/16/2019 23:59 EDT Hospital Encounter [address] [address] Aries Gutierrez MD 111 [facility], [address] [place] [phone] Discharge Disposition: Auto Discharge Social History Tobacco [...] this encounter Medications at Time of Discharge calcium carb/vit D2/minerals (CALCIUM CITRATE + ORAL) [...] on filedocumented in this encounter Care Teams Injection Operator Relationship Specialty Start Date End Date Bobby Das MD [address] [place] [address],[address] [place] [address] PCP - General 07/06/15 documented as of this encounter
--- OUTSIDE RECORDS SUMMARY | 2024-09-30 12:06 | XMS_ITS | Encounter Summary ---
Author Organization [facility] Address [address] [place] [address] Care Team Providers Care Construction Person Name Role Phone Bobby Das MD Primary Care Provider [phone] Reason for Visit * Reason Comments Prostate Cancer Encounter Details Date Type Department Care Team (Late st Contact Info) Description 02/10/[address] [facility] Radiation Oncology - [address] [phone] Aries Gutierrez MD [address] [place] [address], [address] [place] [address] Malignant neoplasm of prostate (HCC-CMS) [...] Assessment Completed By: Felix Gutierrez MD (02/10/18 8361) Radiation Therapy: Cumulative RT Dose 2400 cGy [...] Changes: None Sj Gutierrez MD Radiation Oncology [phone] (office) [phone] (pager) documented in this encounter Plan of Treatment Not on file documented as of this encounter Visit Diagnoses Diagnosis Malignant neoplasm of prostate (HCC-CMS)- Primary Malignant neoplasm of prostate documented in this encounter Care Teams Construction Person Relationship Specialty Start Date End Date Bobby Das MD [address] [place] [address],[address] [place] [address] PCP - General 07/06/15 documented as of this encounter
--- OUTSIDE RECORDS SUMMARY | 2024-09-30 12:06 | XMS_ITS | Encounter Summary ---
Author Organization [facility] Address [address] [place] [address] Care Team Providers Care Clinical Nursing Assistant Name Role Phone Bobby Das MD Primary Care Provider Reason for Visit * Reason Onset Date Comments Prostate Cancer 11/20/2017 Encounter Details Date Type Department Care Team (Late st Contact Info) Description 11/20/2017 Telephone [facility] Radiation Oncology - [address] [phone] Aries Gutierrez MD 111 [facility], [address] 2 [place] [address] Prostate Cancer Social History Tobacco [...] - Delores Gutierrez III, MD - 11/20/2017 7443 EST RADIATION ONCOLOGY I spoke with Mr. Zamora by phone today. His bone scan done at [facility] earlier today reveals no evidence of metastatic disease. He is eager to start therapy. I discussed his care with Dr. José. We will coordinate initiation of androgen deprivation as soon as practical. He will return for fiducial marker placement in approximately 6 weeks, anticipate we will start his treatment approximately 2 months after his first injection. Sj Gutierrez MD Radiation Oncology [phone] (office) [phone] (pager) This note has been prepared with voice recognition software. Please excuse sensor technician errors. documented in this encounter Plan of Treatment Not on file documented as of this encounter Visit Diagnoses Diagnosis Malignant neoplasm of prostate (HCC-CMS)- Primary Malignant neoplasm of prostate documented in this encounter Care Teams Clinical Nursing Assistant Relationship Specialty Start Date End Date Bobby Das MD [address] [place] [address],[address] [place] [address] PCP - General 07/06/15 documented as of this encounter
--- OUTSIDE RECORDS SUMMARY | 2024-09-30 12:06 | XMS_ITS | Encounter Summary ---
Author Organization [facility] Address [address] [place] [address] Care Team Providers Care Gas Truck Driver Name Role Phone Bobby Das MD Primary Care Provider [phone] Reason for Visit * Reason Comments Prostate Cancer Encounter Details Date Type Department Care Team (Late st Contact Info) Description 02/03/2018 Radiation Therapy Visit [facility] Radiation Oncology - [address] [phone] Aries Gutierrez MD [address] [place] [address], [address] [place] [address] Malignant neoplasm of prostate (HCC-CMS) [...] * Delores Gutierrez III, MD - 02/03/2018 9406 EDT On Treatment Visit Assessment: Koko Zamora is currently receiving radiation therapy treatment and is being seen today for his weekly on treatment visit. The encounter diagnosis was Malignant neoplasm of prostate (CMS-HCC). Assessment: Assessment Completed By: Felix Gutierrez MD (02/03/18 7767) Radiation Therapy: Cumulative RT Dose 600 cGy [...] Changes: None Sj Gutierrez MD Radiation Oncology [phone] (office) [phone] (pager) documented in this encounter Plan of [...] documented as of this encounter Care Teams Gas Truck Driver Relationship Specialty Start Date End Date Bobby Das MD [address] [place] [address],[address] [place] [address] PCP - General 07/06/15 documented as of this encounter
--- OUTSIDE RECORDS SUMMARY | 2024-09-30 12:06 | XMS_ITS | Encounter Summary ---
Author Organization [facility] Address [facility] [place] [address] Care Team Providers Care Pet Walker Name Role Phone Bobby Das MD Primary Care Provider [phone] Encounter Details Date Type Department Care Team (Late st Contact Info) Description 11/27/2023 Telephone Dermatology at [facility] [address] [place] [address] Lina Lugo MD [facility] [place] [address] Social History Tobacco Use Types Packs/Day Years Used Date Smoking Tobacco: Former Cigarettes 0.5 50 0 05/15/1972 - 05/15/2022 Smokeless Tobacco: Never Alcohol Use Standard Drinks/Week Comments Not Currently 42 (1 standard drink = 0.6 oz pure alcohol) Last alcohol use in May 2022 [facility] Utilities Answer Date Recorded In the past 12 months has [employer], gas, oil, or water company threatened [...] place to sleep or slept in a nursing home (including now)? No 11/08/2023 DH IPV [...] on filedocumented in this encounter Care Teams Pet Walker Relationship Specialty Start Date End Date Bobby Das MD [address] [place] [address] [place] [address] PCP - General 10/02/10 documented as of this encounter
--- OUTSIDE RECORDS SUMMARY | 2024-09-30 12:06 | XMS_ITS | Encounter Summary ---
Author Organization [facility] Address [address] [place] [address] Care Team Providers Care Decorating Inspector Name Role Phone Bobby Das MD Primary Care Provider [phone] Reason for Visit * Reason Comments Cancer Encounter Details Date Type Department Care Team (Latest Contact Info) Description 02/13/2018 Radiation Therapy Visit [facility] Radiation Oncology - [address] [address] Isela Law, DION Malignant neoplasm [...] Notes * Isela Law RN - 02/13/2018 1153 EDT On Treatment Visit Assessment: Koko Zamora is currently receiving radiation therapy treatment and is being seen today for his weekly on treatment visit. The encounter diagnosis was Malignant neoplasm of prostate (HCC-CMS). Assessment: Assessment Completed By: Isela Law RN (02/13/18 1418) Radiation Therapy: Cumulative RT Dose 3000 cGy [...] prostate documented in this encounter Care Teams Decorating Inspector Relationship Specialty Start Date End Date Bobby Das MD [address] [place] [address],[address] [place] [address] PCP - General 07/06/15 documented as of this encounter
--- OUTSIDE RECORDS SUMMARY | 2024-09-30 12:06 | XMS_ITS | Encounter Summary ---
Author Organization [facility] Address [address] [place] [address] Care Team Providers Care As400 Consultant Name Role Phone Bobby Das MD Primary Care Provider [phone] Encounter Details Date Type Department Care Team (Late st Contact Info) Description 01/08/2018 8:35 EST - 01/08/2018 23:59 EST Hospital Encounter [facility] Radiation Oncology - [address] [phone] Aries Gutierrez MD 111 [facility], [address] [place] [address] Discharge Disposition: Home or Self [...] on filedocumented in this encounter Care Teams As400 Consultant Relationship Specialty Start Date End Date Bobby Das MD [address] [place] [address],[address] [place] [address] PCP - General 07/06/15 documented as of this encounter
--- OUTSIDE RECORDS SUMMARY | 2024-09-30 12:06 | XMS_ITS | Encounter Summary ---
Author Organization [facility] Address [address] [place] [address] Care Team Providers Care Rod Hanger Name Role Phone Bobby Das MD Primary Care Provider [phone] Reason for Visit * Reason Comments Follow-up Encounter Details Date Type Department Care Team (Late st Contact Info) Description 12/02/2017 14:45 EST Office Visit [facility] Urology - [address] [address] Chino José MD 111 [facility], [address] [place] [address] Malignant neoplasm of prostate (HCC-CMS) [...] Notes * Emilee Kaba RN - 12/02/2017 2231 EST Patient has been advised that hormonal [...] libido ( desire to have sex ).Some jail hormonal therapy is associated with the loss of muscle mass, osteoporosis, and malaise ( loss of energy ). Consent given to treatment. Lupron 7.5 mg mixed and injected into right buttocks without incidence per Dr. José order. I was supervised by who was present and immediately available in the office suite. Emilee Kaba RN 12/02/2017 15:14 * Chino José MD - 12/02/2017 1445 EST Chief Complaint: Chief Complaint Patient presents with ??? Follow-up HPI: Koko is a 77 y.o. male with prostate cancer. I originally saw the patient and [facility] and diagnosed him with Winifred 3+4 prostate cancer associated with a PSA of 12.8. He underwent a bone scan for staging that came back negative for metastatic disease. He is seeing me today [facility] for a Lupron injection. He started [...] 12/02/2017 documented in this encounter Care Teams Rod Hanger Relationship Specialty Start Date End Date Bobby Das MD [address] [place] [address],[address] [place] [address] PCP - General 07/06/15 documented as of this encounter
--- OUTSIDE RECORDS SUMMARY | 2024-09-30 12:06 | XMS_ITS | Encounter Summary ---
Author Organization [facility] [place] [address] Care Team Providers Care Clockmaker Name Role Phone Bobby Das MD Primary Care Provider [phone] Encounter Details Date Type Department Care Team (Late st Contact Info) Description 11/23/2023 3:35 AM EST Telehealth [place] [address] Telehealth, Neurology None Social History Tobacco Use Types Packs/Day Years Used Date Smoking Tobacco: Former Cigarettes 0.5 50 0 05/15/1972 - 05/15/2022 Smokeless Tobacco: Never Alcohol Use Standard Drinks/Week Comments Not Currently 42 (1 standard drink = 0.6 oz pure alcohol) Last alcohol use in May 2022 [facility] Utilities Answer Date Recorded In the past 12 months has [employer], [employer], oil, or water [employer] threatened to shut off services in your [...] place to sleep or slept in a senior living (including now)? No 11/08/2023 DH IPV Inpatient [...] on filedocumented in this encounter Care Teams Clockmaker Relationship Specialty Start Date End Date Bobby Das MD [address] [place] [address] [place] [address] PCP - General 10/02/10 documented as of this encounter
--- OUTSIDE RECORDS SUMMARY | 2024-09-30 12:06 | XMS_ITS | Encounter Summary ---
Author Organization [facility] Address [address] [place] [address] Care Team Providers Care High Pressure Boiler Operator Name Role Phone Bobby Das MD Primary Care Provider [phone] Encounter Details Date Type Department Care Team (Late st Contact Info) Description 07/11/2019 15:31 EDT - 07/11/2019 23:59 EDT Hospital Encounter [facility] Radiation Oncology - [address] [phone] Aries Gutierrez MD [address] [place] [address], [address] [place] [address] Discharge Disposition: Home or Self [...] filedocumented in this encounter Care Teams High Pressure Boiler Operator Relationship Specialty Start Date End Date Bobby Das MD [address] [place] [address],[address] [place] [address] PCP - General 07/06/15 documented as of this encounter
--- OUTSIDE RECORDS SUMMARY | 2024-09-30 12:06 | XMS_ITS | Encounter Summary ---
Author Organization [facility] Address [address] [place] [address] Care Team Providers Care Civil Project Engineer Name Role Phone Bobby Das MD Primary Care Provider [phone] Reason for Visit * Reason Onset Date Comments Follow-up 01/12/2018 Encounter Details Date Type Department Care Team (Late st Contact Info) Description 01/12/2018 Telephone [facility] Radiation Oncology - [facility] [address] [place] [address] Isela Law RN Follow-up Social History Tobacco Use Types Packs/Day Years Used Date Smoking Tobacco: Every Day Smokeless Tobacco: Never Sex and Gender Information Value Date Recorded Sex Assigned at Not on file Legal Sex Male 18:26 EDT Gender Identity Not on file Sexual Orientation Not on file documented as of this encounter Miscellaneous Notes * Telephone Encounter - Isela Law RN - 01/12/2018 4238 EST This is a planned post procedure [...] filedocumented in this encounter Care Teams Civil Project Engineer Relationship Specialty Start Date End Date Bobby Das MD [address] [place] [address] ,[address] [place] [address] PCP - General 07/06/15 documented as of this encounter
--- OUTSIDE RECORDS SUMMARY | 2024-09-30 12:06 | XMS_ITS | Encounter Summary ---
Author Organization [facility] Address [address] [place] [address] Care Team Providers Care Sld Educational Aide Name Role Phone Bobby Das MD Primary Care Provider [phone] Reason for Visit * Reason Comments Follow-up Injection Encounter Details Date Type Department Care Team (Late st Contact Info) Description 01/05/2018 9:30 EST Office Visit [facility] Urology - [address] [phone] Chino José MD [address] [place] [address], [address] [place] [address] Malignant neoplasm of prostate (HCC-CMS) [...] 10:00 * Chino José MD - 01/05/2018 0886 EST Chief Complaint: Chief Complaint Patient presents with ??? Follow-up Injection HPI: Koko is a 77 y.o. male with prostate cancer. Grant presented with an elevated PSA to 12.8 and a palpable nodule and on biopsy had 2 out of 12 cores positive for [place]insdale 3+3 and Winifred 3+4 prostate cancer. T2a. He previously had [...] found for: PSA Impression: Patient with T2a, Martinsdale 3+4 prostate cancer associated with a PSA of 12.8. He presents today for a 3 month Lupron injection and we will proceed with radiation therapy with Dr. Gutierrez starting next month. Plan: Follow up with Dr. Gutierrez this week See me at [facility] after radiation therapy is complete with [...] 01/05/2018 documented in this encounter Care Teams Sld Educational Aide Relationship Specialty Start Date End Date Bobby Das MD [address] [place] [address] ,[address] [place] [address] PCP - General 07/06/15 documented as of this encounter
--- OUTSIDE RECORDS SUMMARY | 2024-09-30 12:06 | XMS_ITS | Encounter Summary ---
Author Organization [facility] Address [address] [place] [address] Care Team Providers Care Slab Conditioner Supervisor Name Role Phone Bobby Das MD Primary Care Provider [phone] Reason for Visit * Reason Comments Cancer Encounter Details Date Type Department Care Team (Late st Contact Info) Description 02/27/2018 Radiation Therapy Visit [facility] Radiation Oncology - [place] [address] [place] [address] Janae Gaitan RN [address] [place] [address] Malignant neoplasm of prostate (HCC-CMS) (Primary Dx) [...] rectal bleeding x 1. stool was orange-red. anels food influence. reviewed bowel management and will [...] prostate documented in this encounter Care Teams Slab Conditioner Supervisor Relationship Specialty Start Date End Date Bobby Das MD [address] [place] [address],[address] [place] [address] PCP - General 07/06/15 documented as of this encounter
--- OUTSIDE RECORDS SUMMARY | 2024-09-30 12:06 | XMS_ITS | Encounter Summary ---
Author Organization [facility] Address [address] [place] [address] Care Team Providers Care Rodbuster Name Role Phone Bobby Das MD Primary Care Provider [phone] Encounter Details Date Type Department Care Team (Late st Contact Info) Description 01/08/2019 Orders Only [facility] Radiation Oncology - [address] [phone] Aries Gutierrez MD [address] [place] [address], [address] [place] [address] Malignant neoplasm of prostate (HCC-CMS) [...] 0 - 6.5 ng/ml 07/16/2019 11:53 EDT [facility] Comment: Serum PSA concentration should not be interpreted as absolute evidence for the presence or absence of malignant disease. Assayed utilizing Siemens (IQumulus) chemiluminescent technology. ??Values obtained by using different assay methods cannot be used interchangeably. Blood specimen (specimen) BLOOD SPECIMEN / Unknown 07/16/2019 9:30 EDT 07/16/2019 9:59 EDT us Aries Gutierrez MD CHEMISTRY & BLOOD GAS OR DERABLES Final Result [facility] [address] [place] [address] documented in this encounter Visit Diagnoses Diagnosis Malignant neoplasm of prostate (HCC-CMS)- Primary Malignant neoplasm of prostate documented in this encounter Care Teams Rodbuster Relationship Specialty Start Date End Date Bobby Das MD [address] [place] [address],[address] [place] [address] PCP - General 07/06/15 documented as of this encounter
--- OUTSIDE RECORDS SUMMARY | 2024-09-30 12:06 | XMS_ITS | Encounter Summary ---
Author Organization [facility] Address [address] [place] [address] Care Team Providers Care Pelt Grader Name Role Phone Unknown, Provider MD Primary Care Provider Unava ilable Encounter Details Date Type Department Care Team (Late st Contact Info) Description 07/03/2015 Results Only [facility] [phone] Abby Das MD [address] [place] [address],[address] [place] [address] Social History Tobacco Use Types [...] ? ETTA BAH ? Accession #: ? [id number] ? : ? 1940 (Age: 74) ??M ? Collect Date: ? 07/03/2015 ? Location: ? [facility] ? Receive Date: ? 07/04/2015 ? Provider: ABBY DAS MD Copy to: ? Final Pathologic Diagnosis: SKIN OF SYNAGOGUE, RIGHT, EXCISION: - Basal cell carcinoma, infiltrative type. ??See comment. - Perineural invasion identified. - Margins of excision positive. ??- Lesion extends to peripheral and deep margins of excision specimen. Comment: These results were phoned to Dr. Das's office. ??(Dr. Morris)/[facility] Document reviewed and electronically signed by: [...] Arguello ? 07/04/2015 10:29 End of Report [facility] 07/03/2015 8:54 EDT 07/04/2015 8:54 EDT us Abby Das MD PATHOLOGY ORDERABLES Final Re sult [facility] [address] [place] [address] documented in this encounter Visit Diagnoses Not on filedocumented in this encounter Care Teams Pelt Grader Relationship Specialty Start Date End Date Unknown, Provider, PCP - General 07/03/15 07/05/15 documented as of this encounter
--- OUTSIDE RECORDS SUMMARY | 2024-09-30 12:06 | XMS_ITS | Encounter Summary ---
Author Organization [facility] Address [address] [place] [address] Care Team Providers Care Die Cast Die Maker Name Role Phone Bobby Das MD Primary Care Provider [phone] Encounter Details Date Type Department Care Team (Late st Contact Info) Description 03/04/2018 Documentation Visit [facility] Radiation Oncology - [address] [phone] Aries Gutierrez MD [address] [place] [address], [address] [place] [address] Social History Tobacco Use Types [...] ONCOLOGY TREATMENT SUMMARY SITE, HISTOPATHOLOGY AND STAGE: [id number], PSA 12.8 Winifred score 3+4 = 7 adenocarcinoma prostate. Heis [...] Dr. José. Sj Gutierrez MD Radiation Oncology [phone] (office) [phone] (pager) This note has been prepared with voice recognition software. Please excuse resort desk clerk errors. documented in this encounter Plan of Treatment Not on file documented as of this encounter Visit Diagnoses Not on filedocumented in this encounter Care Teams Die Cast Die Maker Relationship Specialty Start Date End Date Bobby Das MD [address] [place] [address] ,[address] [place] [address] PCP - General 07/06/15 documented as of this encounter
--- OUTSIDE RECORDS SUMMARY | 2024-09-30 12:06 | XMS_ITS | Encounter Summary ---
Author Organization [facility] Address [address] [place] [address] Care Team Providers Care Supervisor Char House Name Role Phone Bobby Das MD Primary Care Provider [phone] Reason for Visit * Reason Comments Cancer Encounter Details Date Type Department Care Team (Latest Contact Info) Description 02/16/2018 Radiation Therapy Visit [facility] Radiation Oncology - [address] [address] Isela Law, DION Malignant neoplasm [...] Assessment Completed By: Isela Law RN (02/16/18 9947) Radiation Therapy: Cumulative RT Dose 3168 cGy [...] Diagnoses Diagnosis Malignant neoplasm of prostate ([facility]-CMS)- Primary Malignant neoplasm of prostate documented in this encounter Care Teams Supervisor Char House Relationship Specialty Start Date End Date Bobby Das MD [address] [place] [address] ,[address] [place] [address] PCP - General 07/06/15 documented as of this encounter
--- OUTSIDE RECORDS SUMMARY | 2024-09-30 12:06 | XMS_ITS | Encounter Summary ---
Author Organization [facility] Address [address] [place] [address] Care Team Providers Care Backup Sawyer Name Role Phone Bobby Das MD Primary Care Provider [phone] Reason for Visit * Reason Comments Prostate Cancer Encounter Details Date Type Department Care Team (Late st Contact Info) Description 02/17/2018 Radiation Therapy Visit [facility] Radiation Oncology - [address] [phone] Aries Gutierrez MD [address] [place] [address], [address] [place] [address] Malignant neoplasm of prostate (HCC-CMS) [...] * Delores Gutierrez III, MD - 02/17/2018 1111 [...] Changes: None Sj Gutierrez MD Radiation Oncology [phone] (office) [phone] (pager) documented in this encounter Plan of Treatment Not on file documented as of this encounter Visit Diagnoses Diagnosis Malignant neoplasm of prostate (HCC-CMS)- Primary Malignant neoplasm of prostate documented in this encounter Care Teams Backup Sawyer Relationship Specialty Start Date End Date Bobby Das MD [address] [place] [address],[address] [place] [address] PCP - General 07/06/15 documented as of this encounter
--- OUTSIDE RECORDS SUMMARY | 2024-09-30 12:06 | XMS_ITS | Encounter Summary ---
Author Organization [facility] Address [address] [place] [address] Care Team Providers Care Medical Record Librarians Teacher Name Role Phone Bobby Das MD Primary Care Provider [phone] Encounter Details Date Type Department Care Team (Late st Contact Info) Description 02/08/2018 8:24 EDT - 02/08/2018 23:[address] [facility] Radiation Oncology - [address] [id number] Aries Gutierrez MD 111 [facility], Level 2 [place] [address] Discharge Disposition: Home or Self [...] filedocumented in this encounter Care Teams Medical Record Librarians Teacher Relationship Specialty Start Date End Date Bobby Das MD [address] [place] [address],[address] [place] [phone] PCP - General 07/06/15 documented as of this encounter
--- OUTSIDE RECORDS SUMMARY | 2024-09-30 12:06 | XMS_ITS | Encounter Summary ---
Author Organization [facility] Address [address] [place] [address] Care Team Providers Care Healthcare Insurance Sales Agent Name Role Phone Bobby Das MD Primary Care Provider [phone] Reason for Visit * Reason Onset Date Comments Prostate Cancer 06/03/2018 Encounter Details Date Type Department Care Team (Late st Contact Info) Description 06/03/2018 Telephone [facility] Radiation Oncology - [address] [phone] Aries Gutierrez MD 111 [facility], Level 2 [place] [address] Prostate Cancer Social History Tobacco [...] - Delores Gutierrez III, MD - 06/03/2018 5421 EDT RADIATION ONCOLOGY I spoke with Mr. Zamora by phone today. He tells me he is unable to make it to [place] for follow-up visits with me as he [...] office if he will be in the [place] area as I would be happy to move my schedule as needed to see him for follow-up. I did strongly encourage him to continue follow-up with Dr. José and asked him to call them to arrange an appointment. He canceled his next scheduled follow-up appointment with me. Sj Gutierrez MD Radiation Oncology [phone] (office) [phone] (pager) This note has been prepared with voice recognition software. Please excuse plastic parts fabricator trimmer errors. documented in this encounter Plan of Treatment Not on file documented as of this encounter Visit Diagnoses Not on filedocumented in this encounter Care Teams Healthcare Insurance Sales Agent Relationship Specialty Start Date End Date Bobby Das MD [address] [place] [address],[address] [place] [address] PCP - General 07/06/15 documented as of this encounter
--- OUTSIDE RECORDS SUMMARY | 2024-09-30 12:06 | XMS_ITS | Encounter Summary ---
Author Organization [facility] Address [address] [place] [address] Care Team Providers Care Driller'S Assistant Name Role Phone Bobby Das MD Primary Care Provider [phone] Reason for Visit * Reason Comments Prostate Cancer Encounter Details Date Type Department Care Team (Late st Contact Info) Description 02/23/2018 Radiation Therapy Visit [facility] Radiation Oncology - [address] [phone] Aries Gutierrez MD [address] [place] [address], [address] [place] [address] Malignant neoplasm of prostate (HCC-CMS) [...] Assessment Completed By: Felix Gutierrez MD (02/23/18 5017) Radiation Therapy: Cumulative RT Dose 4800 cGy [...] Dr. King Sj Gutierrez MD Radiation Oncology [phone] (office) [phone] (pager) documented in this encounter Plan of Treatment Not on file documented as of this encounter Visit Diagnoses Diagnosis Malignant neoplasm of prostate (HCC-CMS)- Primary Malignant neoplasm of prostate documented in this encounter Care Teams Driller'S Assistant Relationship Specialty Start Date End Date Bobby Das MD [address] [place] [address],[address] [place] [address] PCP - General 07/06/15 documented as of this encounter
--- OUTSIDE RECORDS SUMMARY | 2024-09-30 12:06 | XMS_ITS | Encounter Summary ---
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, unspecified blood vessel laterality Flavia Zaman MD [address] [place] [address] [facility] Neurology [address] [place] [phone] Referral ID Status Reason Start Date Expiration Date V isits Requested Visits Authorized [id number] Closed Consult, Test & Treat 11/26/2023 11/25/2024 1 1 Encounter Details Date Type Department Care Team (Latest Contact Info) Description 11/26/2023 Transcribe Orders eD Incoming Referrals [phone] Flavia Zaman MD [address] [place] [address] 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 No 11/08/2023 DH IPV Inpatient [...] Primary documented in this encounter Care Teams Industrial Safety Engineer Relationship Specialty Start Date End Date Bobby Das MD [address] [place] [address] [place] [address] PCP - General 10/02/10 documented as of this encounter
--- OUTSIDE RECORDS SUMMARY | 2024-09-30 12:06 | XMS_ITS | Encounter Summary ---
Author Organization [facility] Address [address] [place] [address] Care Team Providers Care Quill Cleaner Name Role Phone Bobby Das MD Primary Care Provider [phone] Encounter Details Date Type Department Care Team (Late st Contact Info) Description 01/08/2018 11:00 EST Procedure visit [facility] Radiation Oncology - [address] [phone] Aries Gutierrez MD [address] [place] [address], [address] 2 [place] [phone] Discharge Disposition: Auto Discharge Social History Tobacco [...] prostate gland. DATE OF SERVICE: 01/08/2018 INDICATIONS: [id number], PSA 12.8 [place] score 3+4 = 7 adenocarcinoma prostate NARRATIVE: [...] documented as of this encounter Care Teams Quill Cleaner Relationship Specialty Start Date End Date Bobby Das MD [address] [place] [address] ,[address] [place] [address] PCP - General 07/06/15 documented as of this encounter
--- OUTSIDE RECORDS SUMMARY | 2024-09-30 12:06 | XMS_ITS | Encounter Summary ---
Author Organization [facility] Address [address] [place] [address] Care Team Providers Care Refrigeration Systems Installer Name Role Phone Bobby Das MD Primary Care Provider [phone] Reason for Visit * Reason Comments Cancer Encounter Details Date Type Department Care Team (Latest Contact Info) Description 01/08/2018 Radiation Therapy Visit [facility] Radiation Oncology - Main [address] [address] Isela Law, DION Malignant neoplasm [...] Notes * Isela Law RN - 01/08/2018 4346 EST Koko Zamora is currently receiving radiation therapy treatment and is being seen today for his weekly on treatment visit. There were no encounter diagnoses. Assessment: Assessment Completed By: Isela Law RN (01/08/18 8126) Patient Education Topic: Method: Handout and Verbal [...] the program and get free services/meds from [facility]. Referrals home mission worker: Yes (Shadi will meet with Santhosh ALEMAN next week to review the DT and supportiveservices. ) Services: Hope Baxter: No Other: Subjective Note: General: Koko and his Ursula are here for the treatment teaching session post Fiducials beingplaced. Shadi and his run a B & B in [place]. They are concerned that he might be incapacitated with fatigue and side effects while on treatment. They had planned to [facility] out their [facility] while he is on treatment. We reviewed [...] prostate documented in this encounter Care Teams Refrigeration Systems Installer Relationship Specialty Start Date End Date Bobby Das MD [address] [place] [address],[address] [place] [address] PCP - General 07/06/15 documented as of this encounter
--- OUTSIDE RECORDS SUMMARY | 2024-09-30 12:06 | XMS_ITS | Encounter Summary ---
Author Organization [facility] Address [address] [place] [address] Care Team Providers Care Revenue Cycle Consultant Name Role Phone Bobby Das MD Primary Care Provider [phone] Reason for Visit * Reason Onset Date Comments Cancer 03/18/2018 Encounter Details Date Type Department Care Team (Late st Contact Info) Description 03/18/2018 Telephone [facility] Radiation Oncology - [address] [phone] Aries Gutierrez MD 111 [facility], [address] [place] [address] Cancer Social History Tobacco Use [...] - Delores Gutierrez III, MD - 03/18/2018 3767 EDT RADIATION ONCOLOGY Mr. Zamora called the [...] this month. Sj Gutierrez MD Radiation Oncology [phone] (office) [phone] (pager) This note has been prepared with voice recognition software. Please excuse collision estimator errors. documented in this encounter Plan of Treatment Not on file documented as of this encounter Visit Diagnoses Not on filedocumented in this encounter Care Teams Revenue Cycle Consultant Relationship Specialty Start Date End Date Bobby Das MD [address] [place] [address] ,[address] [place] [address] PCP - General 07/06/15 documented as of this encounter
--- OUTSIDE RECORDS SUMMARY | 2024-09-30 12:06 | XMS_ITS | Encounter Summary ---
Author Organization [facility] Address [address] [place] [address] Care Team Providers Care Supervisor Weaving Name Role Phone Bobby Das MD Primary Care Provider [phone] Reason for Visit * Reason Onset Date Comments Appointment Related 03/19/2018 Encounter Details Date Type Department Care Team (Late st Contact Info) Description 03/19/2018 Telephone [facility] Urology - [facility] [address] [place] [address] Dominique Mirza, RN Appointment Related Social History [...] I will plan to see him at [facility]. Tc to pt to advise he [...] so, can the pt be seen at [facility] as originally suggested in 's 01/05 progress note. Will call patient to let him know if he needs to f/u with and if so, can he be seen at [facility]. documented in this encounter Plan of Treatment Not on file documented as of this encounter Visit Diagnoses Not on filedocumented in this encounter Care Teams Supervisor Weaving Relationship Specialty Start Date End Date Bobby Das MD [address] [place] [address] ,[address] [place] [address] PCP - General 07/06/15 documented as of this encounter
--- OUTSIDE RECORDS SUMMARY | 2024-09-30 12:06 | XMS_ITS | Encounter Summary ---
Author Organization [facility] Address [address] [place] [address] Care Team Providers Care Information Systems Manager Name Role Phone Bobby Das MD Primary Care Provider [phone] Reason for Visit * Reason Comments Cancer Encounter Details Date Type Department Care Team (Latest Contact Info) Description 01/08/2018 Radiation Therapy Visit [facility] Radiation Oncology - [address] [address] Isela aLw, RN Malignant neoplasm of prostate (HCC-CMS) (Primary [...] prostate documented in this encounter Care Teams Information Systems Manager Relationship Specialty Start Date End Date Bobby Das MD [address] [place] [address] ,[address] [place] [address] PCP - General 07/06/15 documented as of this encounter
--- OUTSIDE RECORDS SUMMARY | 2024-09-30 12:07 | XMS_ITS | Encounter Summary ---
Author Organization [facility] Address [facility] [place] [address] Care Team Providers Care Shuttler Name Role Phone Bobby Das MD Primary Care Provider [phone] Encounter Details Date Type Department Care Team (Late st Contact Info) Description 10/31/2023 Telephone [place] [address] Alan August MD [facility] DR [place] [address] Social History Tobacco Use Types Packs/Day Years [...] on filedocumented in this encounter Care Teams Shuttler Relationship Specialty Start Date End Date Bobby Das MD [address] [place] [address] [place] [address] PCP - General 10/02/10 documented as of this encounter
--- OUTSIDE RECORDS SUMMARY | 2024-09-30 12:07 | XMS_ITS | Encounter Summary ---
Author Organization [facility] Address [facility] [place] [address] Care Team Providers Care Clerk Television Production Name Role Phone Bobby Das MD Primary Care Provider [phone] Encounter Details Date Type Department Care Team (Late st Contact Info) Description 10/30/2023 Orders Only Cardiology at [address] [address] Christian Figueroa MD [facility] [place] [address] Atrial fibrillation, unspecified type Social History Tobacco Use Types Packs/Day Years Used Date Smoking Tobacco: Former Cigarettes 0.5 50 0 05/15/1972 - 05/15/2022 Smokeless Tobacco: Never Alcohol Use Standard Drinks/Week Comments Yes 42 (1 standard drink = 0.6 oz pu re alcohol) Last alcohol use in May 2022 [facility] Utilities Answer Date Recorded In the past 12 months has [employer] electric, gas, oil, or water company threatened [...] type documented in this encounter Care Teams Clerk Television Production Relationship Specialty Start Date End Date Bobby Das MD [address] [place] [address] [place] [address] PCP - General 10/02/10 documented as of this encounter
--- OUTSIDE RECORDS SUMMARY | 2024-09-30 12:07 | XMS_ITS | Encounter Summary ---
Author Organization [facility] Address [facility] [address] [place] [address] Care Team Providers Care Boatswain Mate Name Role Phone Bobby Das MD Primary Care Provider [phone] Encounter Details Date Type Department Care Team (Late st Contact Info) Description 10/24/2023 Orders Only Cardiology at [address] [address] Christian Figueroa MD [facility] [place] [address] Atrial fibrillation, unspecified type (Primary Dx) Social History Tobacco Use Types Packs/Day Years Used Date Smoking Tobacco: Former Cigarettes 0.5 50 0 05/15/1972 - 05/15/2022 Smokeless Tobacco: Never Alcohol Use Standard Drinks/Week Comments Yes 42 (1 standard drink = 0.6 oz pu re alcohol) Last alcohol use in May 2022 [facility] Utilities Answer Date Recorded In the past 12 months has [employer] electric, gas, oil, or water company threatened [...] to sleep or slept in a senior care (including now)? No 11/08/2023 DH IPV Inpatient [...] Primary documented in this encounter Care Teams Boatswain Mate Relationship Specialty Start Date End Date Bobby Das MD [address] [place] [address] [place] [address] PCP - General 10/02/10 documented as of this encounter
--- OUTSIDE RECORDS SUMMARY | 2024-09-30 12:07 | XMS_ITS | Encounter Summary ---
Author Organization [facility] [place] [address] Care Team Providers Care Division Traffic Superintendent Name Role Phone Bobby Das MD Primary Care Provider [phone] Encounter Details Date Type Department Care Team (Late st Contact Info) Description 10/14/2023 Orders Only Cardiology at [address] [address] Grant Jimenez, RN Social History Tobacco Use [...] on filedocumented in this encounter Care Teams Division Traffic Superintendent Relationship Specialty Start Date End Date Bobby Das MD [address] [place] [address] [place] [address] PCP - General 10/02/10 documented as of this encounter
--- OUTSIDE RECORDS SUMMARY | 2024-09-30 12:07 | XMS_ITS | Encounter Summary ---
Author Organization [facility] [place] [address] Care Team Providers Care Pairing Machine Operator Name Role Phone Bobby Das MD Primary Care Provider [phone] Encounter Details Date Type Department Care Team (Late st Contact Info) Description 10/14/2023 Notes Only Cardiology at [address] [address] Grant Jimenez, RN Social History Tobacco Use [...] RN - 10/14/2023 7:09 AM EST Mr. aZmora is referred by Ifrah Tellez MD for [...] GERD; Anemia and current drinker (42 beers/week). [id number] VASc: 5 (HF, Age, DM, Vascular disease) HAS-BLED: 4 (Bleeding, Age, Medications, Alcohol usage) Anticoagulation/antiplatelet: Eliquis/Plavix Plan: Schedule MD clinic documented in this encounter Plan of Treatment Not on file documented as of this encounter Visit Diagnoses Not on filedocumented in this encounter Care Teams Pairing Machine Operator Relationship Specialty Start Date End Date Bobby Das MD [address] [place] [address] [place] [address] PCP - General 10/02/10 documented as of this encounter
--- OUTSIDE RECORDS SUMMARY | 2024-09-30 12:07 | XMS_ITS | Encounter Summary ---
Author Organization [facility] [place] [address] Care Team Providers Care Maintenance Man Name Role Phone Bobby Das MD Primary Care Provider [phone] Encounter Details Date Type Department Care Team [...] on filedocumented in this encounter Care Teams Maintenance Man Relationship Specialty Start Date End Date Bobby Das MD [address] [place] [address] [place] [address] PCP - General 10/02/10 documented as of this encounter
--- OUTSIDE RECORDS SUMMARY | 2024-09-30 12:07 | XMS_ITS | Encounter Summary ---
Author Organization [facility] [address] Care Team Providers Care Office Supervisor Name Role Phone Bobby Das MD Primary Care Provider [phone] Reason for Visit * Reason Onset Date Comments Prior Authorization 07/29/2023 tretinoin (R ETIN-A) 0.025 % Cream Encounter Details Date Type Department Care Team (Late st Contact Info) Description 07/29/2023 [place] [address] Avril Jones MA Prior Authorization [...] Date: 07/29/2023 End Date: 11/09/2023 Case/Reference #: [id number] Approval Letter will be scanned into media [...] 1940 Insurance Company: [employer] [employer] Sent via: TELOS Zeng: [id number] Physician: June Lua MD Medication Requested: tretinoin [...] filedocumented in this encounter Care Teams Office Supervisor Relationship Specialty Start Date End Date Bobby Das MD [address] [place] [address] [place] [address] PCP - General 10/02/10 documented as of this encounter
--- OUTSIDE RECORDS SUMMARY | 2024-09-30 12:07 | XMS_ITS | Encounter Summary ---
Author Organization [facility] Address [facility] [place] [address] Care Team Providers Care Third Grade Teacher Name Role Phone Bobby Das MD Primary Care Provider Encounter Details Date Type Department Care Team (Late st Contact Info) Description 11/23/2023 Interpretation Only [address] [address] Karthikeyan Rich MD [address] [place] [address] Social History Tobacco Use Types Packs/Day Years Used Date Smoking Tobacco: Former Cigarettes 0.5 50 0 05/15/1972 - 05/15/2022 Smokeless Tobacco: Never Alcohol Use Standard Drinks/Week Comments Not Currently 42 (1 standard drink = 0.6 oz pure alcohol) Last alcohol use in May 2022 [facility] Utilities Answer Date Recorded In the past 12 months has [employer] electric, gas, oil, or water company threatened [...] place to sleep or slept in a fpc (including now)? No 11/08/2023 IPV Inpatient Questions [...] AM EST) PT CLASS I RAD ADMITDTTM [id number] RAD PT RAD MD INFO [id number]^Congius ta^Karthikeyan RAD EXAM DESC CTHEAD^CT HEAD OR [...] administrator that requested your imaging first. ? Narrative 11/23/2023 3:04 AM EST EXAMINATION: CT [...] patients who have questions please contactthe health healthcare administrator that requested your imaging first. Karthikeyan Rich MD IMG CT ORDERABL ES documented in this encounter Visit Diagnoses Not on filedocumented in this encounter Care Teams Third Grade Teacher Relationship Specialty Start Date End Date Bobby Das MD [address] [place] [address] [place] [address] PCP - General 10/02/10 documented as of this encounter
--- OUTSIDE RECORDS SUMMARY | 2024-09-30 12:07 | XMS_ITS | Encounter Summary ---
Author Organization [facility] [place] [address] Care Team Providers Care Motorcycle Sales Associate Name Role Phone Bobby Das MD Primary Care Provider [phone] Encounter Details Date Type Department Care Team (Late st Contact Info) Description 10/24/2023 Notes Only Cardiology at [address] [address] Loretta Rodriguez RN Social History Tobacco Use [...] filedocumented in this encounter Care Teams Motorcycle Sales Associate Relationship Specialty Start Date End Date Bobby Das MD [address] [place] [address] [place] [phone] PCP - General 10/02/10 documented as of this encounter
--- OUTSIDE RECORDS SUMMARY | 2024-09-30 12:07 | XMS_ITS | Encounter Summary ---
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 Ifrah Tellez MD [address] [place] [id number] [place] [address] [place] [phone] Referral ID Status Reason Start Date Expiration Date V isits Requested Visits Authorized [id number] Closed Consult, Test & Treat PCP Updated and/or Approved 10/06/2023 04/03/2024 6 6 Encounter Details Date Type Department Care Team (Latest Contact Info) Description 10/10/2023 Transcribe Orders eD Incoming Referrals [phone] Ifrah Tellez MD Routine general medical examination [...] facility documented in this encounter Care Teams Lotteries Agent Relationship Specialty Start Date End Date Bobby Das MD [address] [place] [address] [place] [address] PCP - General 10/02/10 documented as of this encounter
--- OUTSIDE RECORDS SUMMARY | 2024-09-30 12:07 | XMS_ITS | Encounter Summary ---
[place] [address] Care Team Providers Care Mixer Pigment Name Role Phone Bobby aDs MD Primary Care Provider [phone] Reason for Visit * Reason Comments Fall * Auth/Cert (Routine) Specialty Diagnoses / Procedures Referred By Colby quezada Referred To Contact Diagnoses Stroke Fernanda Pineda MD [facility] [place] [address] [facility] Referral ID Status Reason Start Date Expiration Date Visits Re quested Visits Authorized [id number] 1 1 Encounter Details Date Type Department Care Team (Latest Contact Info) Description 11/06/2023 9:53 AM EST - 11/12/2023 11:10 AM EST Hospital Encounter Medical Specialites Unit Level 1 [place] [address] Barbie Traore MD [facility] [place] [address] Fernanda Pineda MD [facility] [place] [address] Galilea Fournier MD [facility] [place] [address] Marcie Moss MD [facility] [place] [address] Cerebrovascular accident (CVA), unspecified mechanism; Atrial fibrillation, [...] alcohol) Last alcohol use in May 2022 [facility] Utilities Answer Date Recorded In [...] place to sleep or slept in a retirement (including now)? No 11/08/2023 DH IPV Inpatient [...] Koko Zamora Patient Age: 83 y.o. 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 Pt's states they were here at [facility] this AM walking up the ramp into [...] rehab. Operations & Procedures: None Consultations: 1. PT/OT/GOLF RANGE ATTENDANT 2. Endocrinology Diagnostic Tests & Neuroimaging: Study Results ECG Reading Physician Reading Date Result Priority Alan Reid MD [phone] 11/06/2023 Component Ref Range & Units 2 d ago 1 yr ago Ventricular rate BPM 99 106 QRS Duration ms 112 122 Q-T Interval ms 388 368 QTC Calculated (Bezet) ms 497 488 Calculated R [place] degrees -55 -43 Calculated T [place] degrees 73 109 INTERPRETATION Atrial fibrillation Left [...] interpretation Confirmed by fellow MD Mckeon Benjamin ([id number]) on 06/02/2022 8:36:21 PM Confirmed by MD [...] questions please contact the health patient care specialist that requested your imaging first. Electronically signed by: Edson Danielle DO, DH [facility]([phone]), at 11/07/2023 2:19 PM MRA Head and [...] questions please contact the health patient care specialist that requested yourimaging first. Brain wo Contrast [...] questions please contact the health patient care specialist that requested your imaging first. Carotids/[place] CT Head wo & Multiphase [...] questions please contact the health patient care specialist that requested your imaging first. Interpretation Summary [...] for root and ascending on prior) Procedure Complete-[id number]. The rhythm is atrial fibrillation. Left Ventricle [...] Anticipated Discharge Disposition (OT): acute rehabilitation facility GOLF RANGE ATTENDANT: Assessment: Koko Zamora was seen for a post-stroke GOLF RANGE ATTENDANT evaluation. Cognitive-Linguistic Function Koko's performance on the LAST was indicative of expressive and receptive language deficits (primarily expressive). He presented with significant word- finding difficulty requiring either Y/N questions (e.g., Are you hungry?) or response choices (e.g., Do you want eggs or Wallisian toast?) to communicate effectively. He reliably identified [...] fatigue easily Pt will benefit from continued GOLF RANGE ATTENDANT services while hospitalized. Vital Signs at Discharge: [...] Administered Date(s) Administered Moderna Covid-19 Monovalent 12Yr+ (Manager Garden 100mcg) 12/06/2020, 01/03/2021 Discharge Medications: Your Medications [...] daily. Refills: 0 fluticasone propionate 50 mcg/actuation Albert Lea, Suspension Commonly known as: Flonase 1 spray [...] stroke, and education on stroke follow-up. Modified [place] Score (MRS) on discharge Score Description 0 [...] were admitted to the neurology service at [facility] Your Diagnosis: Ischemic Stroke - Work close [...] follow-up appointment in the neurology clinic at [facility]. See below for the appointment time. [...] may be billed similar to a regular meqd-bx-rego clinic visit. Primary Care Provider: Please follow up with your Primary Care Provider within one to 2 weeks of discharge. For questions regarding this document or issues relating to this hospitalization on the Neurology Service, please contact the author(s) of this discharge summary through the [facility] [employer] [place] . If you need to cancel or reschedule, please call Dept: [phone] as soon as possible. This is helpful to us and other waiting patients. IF FOLLOW UP VISIT WITH STROKE TEAM IS NEEDED IN FORM OF TELEHEALTH: Please ensure you have an active [employer] account and are familiar with it. Also, please ensure an active email address. To sign up for a [employer] account, Visit the [email or web address].The [email or web address] website and 1) choose ???create an account?? [...] created. If you need technical assistance call [phone] Friday through Friday, 7:30 am to 5:00 pm If you plan to join your [facility] Video Visit using your personal smartphone or tablet, prior to joining your visit you will need to download the Zoom sloane from the Sloane Store (for iPhone/iPad) or Vascular Pathways (for Android). Ifyou already have Zoom downloaded on your device for personal use, you???re good to go! 1. Open the Sloane Store or Vascular Pathways Store on your device. 2. Search for Zoom and download the ZoTxtFeedback Leon Meetings sloane. ? Sloane Store Link: https://Exchange Group.ZAPR/us/sloane/xort-kiwdq-nbkehwzm/gi816504561 ? Google TapZilla Link: https://LocoMobi/store/apps/details?id=us.zoom.videomeetings If you plan to join your [facility] Video Visit using your computer or laptop, [...] the link to connect to your visit withinyoiRule portal. 1. Sign into your [employer] account. 2. Select Appointments. 3. Select your [facility] Video Visit and tap Begin Visit. 4. [...] Starting 30 minutes prior to your scheduled [facility] Video Visit, you will find the link to connect tothe visit within your [employer] portal. 1. Sign into your The [employer]wick Project account (The Pickwick Project portal link: [email or web address]). 2. On the top of the webpage, hover over Visits and select Appointments and Visits. 3. Click the Details button next to your [facility] video visit. 4. Click the Begin Video [...] juice or regular (not diet) soda 6 Koofersavers small box of raisins 4 glucose tablets [...] 8:00 AM Esmer Sotomayor APRN Neurology at [facility] Arrive at: [employer] Supervisor Area 3C [phone] 03/08/2024 10:00 AM Karthik Domingo MD Gastroenterology at [facility] Arrive at: [employer] Supervisor Area 4L [phone] Primary Care Provider: Bobby Das MD [address] [place] [address] / [place] [id number] Discharge References/Attachments None documented in this encounter [...] were admitted to the neurology service at [facility] Your Diagnosis: Ischemic Stroke - Work close [...] follow-up appointment in the neurology clinic at [facility]. See below for the appointment time. [...] may be billed similar to a regular uqsl-zq-nchc clinic visit. Primary Care Provider: Please follow up with your Primary Care Provider within one to 2 weeks of discharge. For questions regarding this document or issues relating to this hospitalization on the Neurology Service, please contact the author(s) of this discharge summary through the [facility] [employer] [place] . If you need to cancel or reschedule, please call Dept: [phone] as soon as possible. This is helpful to us and other waiting patients. IF FOLLOW UP VISIT WITH STROKE TEAM IS NEEDED IN FORM OF TELEHEALTH: Please ensure you have an active The [employer] Project account and are familiar with it. Also, please ensure an active email address. To sign up for a The Pickwick Project account, Visit the [email or web address].The [email or web address] website and 1) choose ???create an account?? [...] created. If you need technical assistance call [phone] Friday through Friday, 7:30 am to 5:00 pm If you plan to join your [facility] Video Visit using your personal smartphone or tablet, prior to joining your visit you will need to download the Zoom sloane from the Sloane Store (for iPhone/iPad) or Vascular Pathways (for Android). Ifyou already have Zoom downloaded on your device for personal use, you???re good to go! 1. Open the Sloane Store or Vascular Pathways Store on your device. 2. Search for Zoom and download the ZoTxtFeedback Leon Meetings sloane. ? Sloane Store Link: https://Exchange Group.ZAPR/us/sloane/qkoy-yegws-azatgizz/nm235597047 ? Vascular Pathways Link: https://LocoMobi/store/apps/details?id=us.zoom.videomeetings If you plan to join your [facility] Video Visit using your computer or laptop, [...] link to connect to your visit withinyour The Pickwick Project portal. 1. Sign into your The Pickwick Project account. 2. Select Appointments. 3. Select your [facility] Video Visit and tap Begin Visit. 4. [...] Starting 30 minutes prior to your scheduled [facility] Video Visit, you will find the link to connect tothe visit within your The Pickwick Project portal. 1. Sign into your The Pickwick Project account (The Pickwick Project portal link: [email or web address]). 2. On the top of the webpage, hover over Visits and select Appointments and Visits. 3. Click the Details button next to your [facility] video visit. 4. Click the Begin Video [...] 3 12/12/2022 fluticasone propionate (FLONASE) 50 mcg/actuation Albert Lea, Suspension 1 spray by Each Nare route [...] 11/12/2023 10:07 AM EST Office of Care Management/Principal Scientist Patient Name: Koko Zamora : 1940 Patient has been offered an acute rehab bed at [facility] for today, 11/12/23 Patient to transport to facility via private car around 10:30 No MD to MD report necessary Dr. Zaman to admit Please call Nursing Report to , ask for storeroom clerk. Info to accompany patient: Copies of Medication Administration Records and IV sheets for past 10 days. Plan: Principal Scientist will be available to the patient and Call Center Receptionist-RN and/or Social Workerfor further assistance. 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 GOLF RANGE ATTENDANT was consulted as stroke protocol. Interval History: n/a; planning for discharge to [place] this morning Prior Level of Function: (From initial GOLF RANGE ATTENDANT bedside evaluation 11/07/23): Patient reports chronic dysphagia [...] Education: Pt and educated on role of GOLF RANGE ATTENDANT, GOLF RANGE ATTENDANT services at discharge location, and progressionthus far re: swallow/language; both denied further questions. Assessment: Pt was seen today for a follow-up GOLF RANGE ATTENDANT visit. Pt with subjective improvements in expressive [...] goals while hospitalized and at discharge location ([facility]). Diagnosis: Functional-appearing oropharyngeal swallow, suspected esophageal dysphagia [...] fatigue easily Pt will benefit from continued GOLF RANGE ATTENDANT services while hospitalized. Speech Therapy Goals: Pt will tolerate the least restrictive diet without further respiratory decompensation. MET Pt will be independent with aspiration precautions. MET Pt will participate in ongoing cognitive-linguistic assessment as indicated Plan: Therapy Frequency (GOLF RANGE ATTENDANT Eval): 2-3 times/wk Pt./family are in agreement with treatment plan. Total Minutes (Speech Language Pathology): 12 Thank you for this consult with this patient. Please feel free to message me with any questions or concerns. Luann Sylvester MS, CFY-GOLF RANGE ATTENDANT Speech-Language Pathologist Clinical Fellow Inpatient Rehabilitation Pager # [phone] * Vanna Suarez APRN - 11/12/2023 9:20 AM EST Images from the original note were not included. Glucose Management Team Inpatient Progress Note HPI Koko Zamora is a 83 y.o. male from [place], [place] with PMH significant for atrial fibrillation,Type 2 DM, CAD, HLD, heart failure who was admitted on 11/06/2023 currently being treated for acutestroke. Original consult completed: 11/09/2023 Patient Interview & Updates Koko is leaving to [facility] today at 1030. He will be [...] Carb Controlled 60/60/75g Monitoring: BG Q4 Discharge Planning/[facility] diabetes care: Medications - Outpatient treatment regimen [...] the consulting service. Vanna Suarez APRN, DNP, -[facility] Inpatient Diabetes Management Team Team pager #[phone] Diabetes Discharge Instructions & Recommendations Test your [...] Fournier MD Primary Provider: Bobby Das MD [phone] Hospital Day: Hospital Day: 7 Patient ID [...] 168 hours. No results for input(s): PHART, EXH7EQI, PO2ART, GWM2RBW in the last 168 hours. No results [...] questions please contact the health patient care specialist that requested your imaging first. Electronically signed by: Robyn Najera MD, [facility] ([phone]), at 11/06/2023 11:[address] Head wo & Multiphase CTA [...] questions please contact the health patient care specialist that requested your imaging first. Cervical Spine [...] questions please contact the health patient care specialist that requested your imaging first. Electronically signed by: Edson Danielle DO, [facility] ([phone]), at 11/06/2023 11:[address] Chest Abdomen [...] questions please contact the health patient care specialist that requested your imaging first. Electronically signed by: Matt Edwards MD, [facility] ([phone]), at 11/06/2023 11:[address] Thoracic Spine Reconstruction (Exam End: 11/06/2023 10:40 [...] questions please contact the health patient care specialist that requested your imaging first. Electronically signed by: Edson Danielle DO, [facility] ([phone]), at 11/06/2023 11:[address] Lumbar Spine [...] questions please contact the health patient care specialist that requested your imaging first. Electronically signed by: Edson Danielle DO, [facility] ([phone]), at 11/06/2023 11:29 AM XR Shoulder Right (Generic) (Exam End: 11/06/2023 11:54 AM) Impression No acute fracture or dislocation Thank you for letting us participate in the care of this patient. If you are a health care provider and have any questions regarding this report, please contact the number below. For patients who have questions please contact the health patient care specialist that requested your imaging first. Electronically signed by: Shannen Sánchez MD, [facility] ([phone]), at 11/06/2023 12:02 PM XR Elbow 3 [...] questions please contact the health patient care specialist that requested your imaging first. Electronically signed by: Shannen Sánchez MD, [facility] ([phone]), at 11/06/2023 12:00 PM XR Wrist 3 [...] questions please contact the health patient care specialist that requested your imaging first. Knee 1-2 [...] questions please contact the health patient care specialist that requested your imaging first. Brain wo Contrast (Exam End: 11/06/2023 10:08 [...] questions please contact the health patient care specialist that requested your imaging first. Head wo [...] questions please contact the health patient care specialist that requested your imaging first. Brain wo [...] questions please contact the health patient care specialist that requested your imaging first. SSMENT & PLAN Koko Zamora is an 83 [...] -EKG showed AFIB -continue tele -TTE 11/06 -PT/OT/GOLF RANGE ATTENDANT #Other meds - Insulin lispro (in lieu [...] Please page Vascular Neurology with any questions, #[phone] Esmer Sotomayor APRN Department of Neurology [place] [phone] * Soila Molina RN - 11/11/2023 3:41 PM ESTSummary: IRVING PLANNING Pt has been accepted to [facility] for acute rehab for 11/12/23. Pt's will transport to [facility] on 11/12/23 at 10:30am. Team is aware. Soila Molina MSN-Ed, RN ACM crepe machine operator Office of Care Management Pager #[phone] * Alda Mejia, PT - 11/11/2023 1:52 [...] his Lesly in a multi-level home in [place], [place]. All of his needs are met [...] at discharge. I have met with the tour sales representative to: discuss discharge planning needs. provide the [facility], Office of Care Management letter from the Spinning Bath Person pertaining to rehab referrals. provide a letter describing our affiliations within the [facility] and educate about their right to choose where referrals are sent. provide the [facility] Star Quality Rating handout. review the different levels of rehab including SNF, swing, and acute. provide a list of facilities within their preferred geographic area. request that they provide at least three choices for referral. They have requested referrals to: [facility] [address] [place] [id number] [facility] [address] [place] [address] ARLEEN: 11/11/23 Note routed to a Principal Scientist who will communicate referrals to facilities and provide any required information. * Vanna Suarez APRN - 11/11/2023 12:30 PM EST Images from the original note were not included. Glucose Management Team Inpatient Progress Note HPI Koko Zamora is a 83 y.o. male from [place], [place] with PMH significant for atrial fibrillation,Type [...] Carb Controlled 60/60/75g Monitoring: BG Q4 Discharge Planning/[facility] diabetes care: Medications - Outpatient treatment regimen [...] the consulting service. Vanna Suarez APRN, DNP, -[facility] Inpatient Diabetes Management Team Team pager #[phone] * Gordo kSinner, [place] - 11/11/2023 10:07 AM EST Occupational [...] 2-4 times/wk Total Minutes, Occupational Therapy: 31 (vt x [phone]) Pager: [phone] Gordo Skinner OT Occupational Therapy Rehabilitation Department * Elidia Duarte MD - 11/11/2023 6:46 AM EST Images from the original note were not included. VASCULAR NEUROLOGY DAILY PROGRESS NOTE Admit Date 11/06/2023 Responsible Attending: Galilea Fournier MD Primary Provider: Bobby aDs MD [phone] Hospital Day: Hospital Day: 6 Patient ID [...] 168 hours. No results for input(s): PHART, WPG7TML, PO2ART, OHI0LIA in the last 168 hours. No results [...] questions please contact the health patient care specialist that requested your imaging first. Electronically signed by: Robyn Najera MD, [facility] ([phone]), at 11/06/2023 11:[address] Head wo & Multiphase CTA [...] questions please contact the health patient care specialist that requested your imaging first. Cervical Spine [...] questions please contact the health patient care specialist that requested your imaging first. Chest Abdomen [...] questions please contact the health patient care specialist that requested your imaging first. Electronically signed by: Matt Edwards MD, [facility] ([phone]), at 11/06/2023 11:[address] Thoracic Spine Reconstruction (Exam End: 11/06/2023 10:40 [...] questions please contact the health patient care specialist that requested your imaging first. Lumbar Spine [...] questions please contact the health patient care specialist that requested your imaging first. Electronically signed by: Edson Danielle DO, [facility] ([phone]), at 11/06/2023 11:29 AM XR Shoulder Right (Generic) (Exam End: 11/06/2023 11:54 AM) Impression No acute fracture or dislocation Thank you for letting us participate in the care of this patient. If you are a health care provider and have any questions regarding this report, please contact the number below. For patients who have questions please contact the health patient care specialist that requested your imaging first. Electronically signed by: Shannen Sánchez MD, [facility] ([phone]), at 11/06/2023 12:02 PM XR Elbow 3 [...] questions please contact the health patient care specialist that requested your imaging first. Electronically signed by: Shannen Sánchez MD, [facility] ([phone]), at 11/06/2023 12:00 PM XR Wrist 3 [...] questions please contact the health patient care specialist that requested your imaging first. Electronically signed by: Shannen Sánchez MD [facility] ([phone]), at 11/06/2023 12:00 PM XR Knee 1-2 [...] questions please contact the health patient care specialist that requested your imaging first. Electronically signed by: Shannen Sánchez MD, [facility] ([phone]), at 11/06/2023 11:57 AM MRI Brain wo [...] questions please contact the health patient care specialist that requested your imaging first. Head wo [...] questions please contact the health patient care specialist that requested your imaging first. Electronically signed by: Edson Danielle DO, [facility] ([phone]), at 11/07/2023 2:19 PM MRI Brain wo [...] questions please contact the health patient care specialist that requested your imaging first. Electronically signed by: Edson Danielle DO, [facility] ([phone]), at 11/08/2023 1:34 PM TTE 11/06/23 Interpretation Summary Mildly to moderately reduced [...] -EKG showed AFIB -continue tele -TTE 11/06 -PT/OT/GOLF RANGE ATTENDANT #Other meds - Insulin lispro (in lieu [...] Please page Vascular Neurology with any questions, #[phone] Elidia Duarte MD [place] [address] Associated attestation - Galilea Fournier [...] Fournier MD Primary Provider: Bobby Das MD [phone] Hospital Day: Hospital Day: 5 Patient ID [...] 168 hours. No results for input(s): PHART, WQE5SXK, PO2ART, AKU5LQH in the last 168 hours. No results [...] questions please contact the health patient care specialist that requested your imaging first. Electronically signed by: Robyn Najera MD, [facility] ([phone]), at 11/06/2023 11:[address] Head wo & Multiphase CTA [...] questions please contact the health patient care specialist that requested your imaging first. Cervical Spine [...] questions please contact the health patient care specialist that requested your imaging first. Electronically signed by: Edson Danielle DO, [facility] ([phone]), at 11/06/2023 11:[address] Chest Abdomen [...] questions please contact the health patient care specialist that requested your imaging first. Electronically signed by: Matt Edwards MD, [facility] ([phone]), at 11/06/2023 11:[address] Thoracic Spine Reconstruction (Exam End: 11/06/2023 10:40 [...] questions please contact the health patient care specialist that requested your imaging first. Electronically signed by: Edson Danielle DO [facility] ([phone]), at 11/06/2023 11:[address] Lumbar Spine [...] questions please contact the health patient care specialist that requested your imaging first. Shoulder Right (Generic) (Exam End: 11/06/2023 11:54 AM) Impression No acute fracture or dislocation Thank you for letting us participate in the care of this patient. If you are a health care provider and have any questions regarding this report, please contact the number below. For patients who have questions please contact the health patient care specialist that requested your imaging first. Electronically signed by: Shannen Sánchez MD, [facility] ([phone]), at 11/06/2023 12:02 PM XR Elbow 3 [...] questions please contact the health patient care specialist that requested your imaging first. Electronically signed by: Shannen Sánchez MD [facility] ([phone]), at 11/06/2023 12:00 PM XR Wrist 3 [...] questions please contact the health patient care specialist that requested your imaging first. Electronically signed by: Shannen Sánchez MD, [facility] ([phone]), at 11/06/2023 12:00 PM XR Knee 1-2 [...] questions please contact the health patient care specialist that requested your imaging first. Electronically signed by: Shannen Sánchez MD, [facility] ([phone]), at 11/06/2023 11:57 AM MRI Brain wo [...] questions please contact the health patient care specialist that requested your imaging first. Head wo [...] questions please contact the health patient care specialist that requested your imaging first. Electronically signed by: Edson Danielle DO [facility] ([phone]), at 11/07/2023 2:19 PM MRI Brain wo [...] questions please contact the health patient care specialist that requested your imaging first. Electronically signed by: Edson Danielle DO [facility] ([phone]), at 11/08/2023 1:34 PM TTE 11/06/23 Interpretation Summary Mildly to moderately reduced [...] -EKG showed AFIB -continue tele -TTE 11/06 -PT/OT/GOLF RANGE ATTENDANT #Other meds - Insulin lispro (in lieu [...] Please page Vascular Neurology with any questions, #[phone] Elidia Duarte MD [place] [address] Associated attestation - Galilea Fournier MD - [...] Nightly metoproloL tartrate 12.5 mg Oral Q6H [facility] [START ON 11/10/2023] insulin glargine (Lantus;Semglee) (100 unit/mL) subcutaneous injection 10 UnitsSubcutaneous Daily insulin lispro 0-8 Units Subcutaneous TID WC insulin lispro 1-4 Units Subcutaneous Q4H [facility] pantoprazole EC 40 mg Oral BID clopidogreL [...] recommendations pending based on the hospital course, [facility] diabetes care: Medications - Outpatient treatment regimen [...] Fournier MD Primary Provider: Bobby Das MD [phone] Hospital Day: Hospital Day: 4 Patient ID [...] 168 hours. No results for input(s): PHART, PRK3CRC, PO2ART, FIE7CWF in the last 168 hours. Recent Labs [...] questions please contact the health patient care specialist that requested your imaging first. Electronically signed by: Robyn Najera MD, [facility] ([phone]), at 11/06/2023 11:[address] Head wo & Multiphase CTA [...] questions please contact the health patient care specialist that requested your imaging first. Cervical Spine [...] questions please contact the health patient care specialist that requested your imaging first. Electronically signed by: Edson Danielle DO, [facility] ([phone]), at 11/06/2023 11:[address] Chest Abdomen [...] questions please contact the health patient care specialist that requested your imaging first. Electronically signed by: Matt Edwards MD, [facility] ([phone]), at 11/06/2023 11:[address] Thoracic Spine Reconstruction (Exam End: 11/06/2023 10:40 [...] questions please contact the health patient care specialist that requested your imaging first. Electronically signed by: Edson Danielle DO, [facility] ([phone]), at 11/06/2023 11:[address] Lumbar Spine [...] questions please contact the health patient care specialist that requested your imaging first. Electronically signed by: Edson Danielle DO, [facility] ([phone]), at 11/06/2023 11:29 AM XR Shoulder Right (Generic) (Exam End: 11/06/2023 11:54 AM) Impression No acute fracture or dislocation Thank you for letting us participate in the care of this patient. If you are a health care provider and have any questions regarding this report, please contact the number below. For patients who have questions please contact the health patient care specialist that requested your imaging first. Electronically signed by: Shannen Sánchez MD, [facility] ([phone]), at 11/06/2023 12:02 PM XR Elbow 3 [...] questions please contact the health patient care specialist that requested your imaging first. Electronically signed by: Shannen Sánchez MD, [facility] ([phone]), at 11/06/2023 12:00 PM XR Wrist 3 [...] questions please contact the health patient care specialist that requested your imaging first. Electronically signed by: Shannen Sánchez MD, [facility] ([phone]), at 11/06/2023 12:00 PM XR Knee 1-2 [...] questions please contact the health patient care specialist that requested your imaging first. Electronically signed by: Shannen Sánchez MD, [facility] ([phone]), at 11/06/2023 11:57 AM MRI Brain wo [...] questions please contact the health patient care specialist that requested your imaging first. Head wo [...] questions please contact the health patient care specialist that requested your imaging first. Electronically signed by: Edson Danielle DO, [facility] ([phone]), at 11/07/2023 2:19 PM MRI Brain wo [...] questions please contact the health patient care specialist that requested your imaging first. Electronically signed by: Edson Danielle DO, [facility] ([phone]), at 11/08/2023 1:34 PM TTE 11/06/23 Interpretation Summary Mildly to moderately reduced [...] -EKG showed AFIB -continue tele -TTE 11/06 -PT/OT/GOLF RANGE ATTENDANT #Other meds - Insulin lispro (in lieu [...] Please page Vascular Neurology with any questions, #[phone] Shelli Khan DO Department of Neurology [place] [id number] Associated attestation - Galilea Fournier MD - [...] Fournier MD Primary Provider: Bobby Das MD [phone] Hospital Day: Hospital Day: 3 Patient ID [...] 168 hours. No results for input(s): PHART, UCF7ORB, PO2ART, PUM5OJO in the last 168 hours. Recent Labs [...] -EKG showed AFIB -continue tele -TTE 11/06 -PT/OT/GOLF RANGE ATTENDANT #Other meds - insulin lispro (in lieu [...] Please page Vascular Neurology with any questions, #[phone] Total time 30 minutes was spent on pre-charting, reviewing diagnostic studies and patient chart, and formulating plan for today as well as patient education and counseling on plan as outlined above. 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 HFrEF (heart failure with reduced ejection fraction) Permanent atrial fibrillation Limb ischemia History of basal cell carcinoma Basal cell carcinoma Verruca vulgaris AK (actinic keratosis) GIB (gastrointestinal bleeding) MVP (mitral valve prolapse) s/p repair Hypertriglyceridemia Adhesive capsulitis of L shoulder Alcohol use Past Surgical History: Procedure Laterality Date IR BIOPSY SPINE 07/20/2019 IR Biopsy Spine 07/20/2019 Bobby Marshall MD [facility] INTERVENTIONL RAD IR VERTEBROPLASTY LUMBAR MULTIPLE LEVELS 07/20/2019 IR Vertebroplasty Lumbar Multiple Levels 07/20/2019 Bobby Marshall MD [facility] INTERVENTIONL RAD IR VERTEBROPLASTY THORACIC SINGLE LEVEL 10/25/2020 IR Vertebroplasty Thoracic Single Level 10/25/2020 Matt Chisholm MD [facility] INTERVENTIONL RAD PRO COLONOSCOPY, DIAGNOSTIC N/A 12/09/2022 COLONOSCOPY, DIAGNOSTIC performed by Giovani Ponce MD at [facility] ENDOSCOPY PRO COLONOSCOPY, FLEX, W/CONTROL, BLEEDING N/A 06/25/2022 COLONOSCOPY; W CONTROL OF BLEEDING, ANY METHOD performed by Giovani Ponce MD at [facility] ENDOSCOPY PRO EMBLC/THRMBC FEMORAL POPLITEAL AORTO-ILIAC ARTERY Left 05/15/2022 EMBOLECTOMY OR THROMBECTOMY, FEMOROPOPLITEAL, AORTOILIAC ARTERY BY LEG INCISION (WRVU 19.48) performed by Fito Summers MD at [facility] MAIN OR PRO SMALL BOWEL ENDOSCOPY, PAST 2ND DUOD N/A 06/25/2022 SMALL BOWEL ENTEROSCOPY performed by Giovani Ponce MD at [facility] ENDOSCOPY PRO UPPER GI ENDOSCOPY, CTRL BLEED 05/31/2022 EGD, W CONTROL OF BLEEDING, ANY METHOD performed by Giovani Ponce MD at [facility] ENDOSCOPY PRO UPPER GI ENDOSCOPY, DIAGNOSTIC N/A 05/31/2022 EGD, UPPER GI ENDOSCOPY performed by Giovani Ponce MD at [facility] ENDOSCOPY PRO UPPER GI ENDOSCOPY, DIAGNOSTIC N/A 06/25/2022 EGD, UPPER GI ENDOSCOPY performed by Giovani Ponce MD at [facility] ENDOSCOPY Social History: will need to confirm and gather additional details d/t aphasia Home set-up: Pt lives with his Lesly in a multi-level home in [place], [place]. All of his needs are met [...] outlined inthis evaluation. Time IN / OUT: 5838-5213 Total Minutes, Physical Therapy: 30 Billing Code: mod complexity eval Radha Hartley, PT Pager: [phone] Physical Therapy Inpatient Rehabilitation Department * Kaylene [...] IR Biopsy Spine 07/20/2019 Bobby Marshall MD [facility] INTERVENTIONL RAD IR VERTEBROPLASTY LUMBAR MULTIPLE LEVELS 07/20/2019 IR Vertebroplasty Lumbar Multiple Levels 07/20/2019 Bobby Marshall MD [facility] INTERVENTIONL RAD IR VERTEBROPLASTY THORACIC SINGLE LEVEL 10/25/2020 IR Vertebroplasty Thoracic Single Level 10/25/2020 Matt Chisholm MD [facility] INTERVENTIONL RAD PRO COLONOSCOPY, DIAGNOSTIC N/A 12/09/2022 COLONOSCOPY, DIAGNOSTIC performed by Giovani Ponce MD at [facility] ENDOSCOPY PRO COLONOSCOPY, FLEX, W/CONTROL, BLEEDING N/A 06/25/2022 COLONOSCOPY; W CONTROL OF BLEEDING, ANY METHOD performed by Giovani Ponce MD at [facility] ENDOSCOPY PRO EMBLC/THRMBC FEMORAL POPLITEAL AORTO-ILIAC ARTERY Left 05/15/2022 EMBOLECTOMY OR THROMBECTOMY, FEMOROPOPLITEAL, AORTOILIAC ARTERY BY LEG INCISION (WRVU 19.48) performed by Fito Summers MD at [facility] MAIN OR PRO SMALL BOWEL ENDOSCOPY, PAST 2ND DUOD N/A 06/25/2022 SMALL BOWEL ENTEROSCOPY performed by Giovani Ponce MD at [facility] ENDOSCOPY PRO UPPER GI ENDOSCOPY, CTRL BLEED 05/31/2022 EGD, W CONTROL OF BLEEDING, ANY METHOD performed by Giovani Ponce MD at [facility] ENDOSCOPY PRO UPPER GI ENDOSCOPY, DIAGNOSTIC N/A 05/31/2022 EGD, UPPER GI ENDOSCOPY performed by Giovani Ponce MD at [facility] ENDOSCOPY PRO UPPER GI ENDOSCOPY, DIAGNOSTIC N/A 06/25/2022 EGD, UPPER GI ENDOSCOPY performed by Giovani Ponce MD at [facility] ENDOSCOPY Social History: Patient lives with his [...] planning. Total Minutes, Occupational Therapy: 29 (eval [id number]) 2017 OT Evaluation Code Rationale: Diagnosis & [...] and measurable assessment of functional outcome. 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 No results for input(s): PHART, CIQ0YQH, PO2ART, HSQ8AEI in the last 168 hours. Recent Labs [...] -EKG showed AFIB -continue tele -TTE 11/06 -PT/OT/GOLF RANGE ATTENDANT #Other meds - insulin lispro (in lieu [...] Fournier MD Please page Vascular Neurology at #[phone] with any questions. Miguel Arias DO Neurology Resident, PGY-3 11/07/23 Department of Neurology [place] [id number] Associated attestation - Galilea Fournier MD - [...] IR Biopsy Spine 07/20/2019 Bobby Marshall MD [facility] INTERVENTIONL RAD IR VERTEBROPLASTY LUMBAR MULTIPLE LEVELS 07/20/2019 IR Vertebroplasty Lumbar Multiple Levels 07/20/2019 Bobby Marshall MD [facility] INTERVENTIONL RAD IR VERTEBROPLASTY THORACIC SINGLE LEVEL 10/25/2020 IR Vertebroplasty Thoracic Single Level 10/25/2020 Matt Chisholm MD [facility] INTERVENTIONL RAD PRO COLONOSCOPY, DIAGNOSTIC N/A 12/09/2022 COLONOSCOPY, DIAGNOSTIC performed by Giovani Ponce MD at [facility] ENDOSCOPY PRO COLONOSCOPY, FLEX, W/CONTROL, BLEEDING N/A 06/25/2022 COLONOSCOPY; W CONTROL OF BLEEDING, ANY METHOD performed by Giovani Ponce MD at [facility] ENDOSCOPY PRO EMBLC/THRMBC FEMORAL POPLITEAL AORTO-ILIAC ARTERY Left 05/15/2022 EMBOLECTOMY OR THROMBECTOMY, FEMOROPOPLITEAL, AORTOILIAC ARTERY BY LEG INCISION (WRVU 19.48) performed by Fito Summers MD at [facility] MAIN OR PRO SMALL BOWEL ENDOSCOPY, PAST 2ND DUOD N/A 06/25/2022 SMALL BOWEL ENTEROSCOPY performed by Giovani Ponce MD at [facility] ENDOSCOPY PRO UPPER GI ENDOSCOPY, CTRL BLEED 05/31/2022 EGD, W CONTROL OF BLEEDING, ANY METHOD performed by Giovani Ponce MD at [facility] ENDOSCOPY PRO UPPER GI ENDOSCOPY, DIAGNOSTIC N/A 05/31/2022 EGD, UPPER GI ENDOSCOPY performed by Giovani Ponce MD at [facility] ENDOSCOPY PRO UPPER GI ENDOSCOPY, DIAGNOSTIC N/A 06/25/2022 EGD, UPPER GI ENDOSCOPY performed by Giovani Ponce MD at [facility] ENDOSCOPY Social History Tobacco Use Smoking status: [...] Lvl <100 <=99 mg/L Type and screen ([facility]) Result Value Ref Range Patient BB History Found Expires at 5900 on: 11-09-2023 Hemogram Result Value Ref Range [...] Patient is medically ready for discharge to [facility] acute rehab. Needs for Transition of Care: Plan for discharge is: Acute Rehab Outpatient Agency/Support Group Needs: *TBD Agency Referrals & Follow-up Care: Contact information for follow-up [address] [address] Transportation: family or friend will provide-via private [...] Type: *No Product type* / Secondary Insurance: [place] [employer] Prescription Coverage: Yes This plan was formulated with input from patient, dtr and (please identify family/friend involved if applicable) and team. All are in agreement with plan. Soila Molina MSN-Ed, RN ACM crepe machine operator Office of Care Management Pager #[phone] * Plan of Care - Armando Pelayo [...] EVALUATION NOTE: OUTCOME SUMMARY: Pt arrived to [facility] via bed at 1208. Vitals obtained. Pt tachycardic intermittently, tele initiatedper orders. See doc flowsheets for tele rate/rhythm measurements. Pt c/o dizziness, MD Peg Khan aware, 500mL NS bolus given per orders. Neuro check done per orders, see doc flowsheets. Assessment as charted. Medications administered per [facility] orders. Blood sugars obtained and treated per [...] COVID test: Lab Results Component Value Date [id number] Not Detected 12/12/2022 Past medical History: No past medical history on file. Hospitalizations Within the Past 30 Days: no previous admission in last 30 days Current Decision-Making Capacity: Self If AD's have not been completed the following surrogate would be surrogate decision maker per [place] surrogate decision making law. (Only good for 180 days)- LESLY Any patient receiving care in [place] must abide by [place] law. The hierarchy [...] In the past 12 months has the [employer] gas, oil, or water company threatened to [...] Current DME: none Home Address confirmed as: [address] [place] [phone] Social & Family Supports: All names listed below confirmed with patient as current and correct Extended Emergency Contact Information Primary Emergency Contact: Lesly Zamora Address: [address] [place] [id number] [facility] Relation: Spouse Current Care Provided by: self, [...] *No Product type* / Secondary Insurance: [facility] ONLY if patient has Medicare A&B - Does this patient have secondary insurance?: Yes ; Prescription Coverage: Yes Preferred Pharmacy: [facility] [id number] [place], [place] - [address] [facility] [address] [facility] [address] [place] Status: Patient is a : Yes Are you enrolled in the VA for your healthcare?: Yes Are you here under your VA benefit?: No Primary Care Provider confirmed: Bobby Das MD [phone] Patient/Caregiver Goals of Treatment: Pt was fully ind at baseline prior to CVA, was working out, fully mobile, and driving prior. Acute rehab choices given to family for referrals, awaiting choices. Potential Needs for Transition of Care: home health care, outpatient care, rehabilitation services,durable medical equipment Agency Referrals: Not Applicable Transportation: no concerns Transportation Anticipated: Concerns to be Addressed: adjustment to diagnosis/illness, summer child caregiver support, discharge planning Assessment: Patient is admitted to [facility] Neuro service for CVA Plan: Acute rehab choices given to pt/family, awaiting decision. A member of the Care Management team will continue to monitor progress, follow for continuity of care and assist with transition of care planning. Soila Molina MSN-Ed, RN ACM crepe machine operator Office of Care Management Pager #[phone] * Consult Note - Trenton Johnson MD [...] with 10 units twice daily if BG [id number]) 2. Lispro sensitive correction scale for BG>140 q 4 hrs 3. Meal-associated Lispro 1unit: 10 gm carb ratio for each meal) Diabetes Discharge Planning Medications - Outpatient treatment regimen recommendations pending based on the hospital course, terminal gauger diabetes care: Medications - Outpatient treatment regimen [...] referrals. Satish López RN RN/CM - Cellphone: [phone] Pager: [phone] Covering Service RN/CM * Consult Note - [...] IR Biopsy Spine 07/20/2019 Bobby Marshall MD [facility] INTERVENTIONL RAD IR VERTEBROPLASTY LUMBAR MULTIPLE LEVELS 07/20/2019 IR Vertebroplasty Lumbar Multiple Levels 07/20/2019 Bobby Marshall MD [facility] INTERVENTIONL RAD IR VERTEBROPLASTY THORACIC SINGLE LEVEL 10/25/2020 IR Vertebroplasty Thoracic Single Level 10/25/2020 Matt Chisholm MD [facility] INTERVENTIONL RAD PRO COLONOSCOPY, DIAGNOSTIC N/A 12/09/2022 COLONOSCOPY, DIAGNOSTIC performed by Giovani Ponce MD at [facility] ENDOSCOPY PRO COLONOSCOPY, FLEX, W/CONTROL, BLEEDING N/A 06/25/2022 COLONOSCOPY; W CONTROL OF BLEEDING, ANY METHOD performed by Giovani Ponce MD at [facility] ENDOSCOPY PRO EMBLC/THRMBC FEMORAL POPLITEAL AORTO-ILIAC ARTERY Left 05/15/2022 EMBOLECTOMY OR THROMBECTOMY, FEMOROPOPLITEAL, AORTOILIAC ARTERY BY LEG INCISION (WRVU 19.48) performed by Fito Summers MD at [facility] MAIN OR PRO SMALL BOWEL ENDOSCOPY, PAST 2ND DUOD N/A 06/25/2022 SMALL BOWEL ENTEROSCOPY performed by Giovani Ponce MD at [facility] ENDOSCOPY PRO UPPER GI ENDOSCOPY, CTRL BLEED 05/31/2022 EGD, W CONTROL OF BLEEDING, ANY METHOD performed by Giovani Ponce MD at [facility] ENDOSCOPY PRO UPPER GI ENDOSCOPY, DIAGNOSTIC N/A 05/31/2022 EGD, UPPER GI ENDOSCOPY performed by Giovani Ponce MD at [facility] ENDOSCOPY PRO UPPER GI ENDOSCOPY, DIAGNOSTIC N/A 06/25/2022 EGD, UPPER GI ENDOSCOPY performed by Giovani Ponce MD at [facility] ENDOSCOPY SOCIAL HX: Social History Socioeconomic History [...] 3 Unknown fluticasone propionate (FLONASE) 50 mcg/actuation [place], Suspension 1 spray by Each Nare route [...] questions please contact the health patient care specialist that requested your imaging first. Shoulder Right (Generic) Final Result No acute fracture or dislocation Thank you for letting us participate in the care of this patient. If you are a health care provider and have any questions regarding this report, please contact the number below. For patients who have questions please contact the health patient care specialist that requested your imaging first. Electronically signed by: Shannen Sánchez MD, [facility] ([phone]), at 11/06/2023 12:02 PM XR Elbow 3 [...] questions please contact the health patient care specialist that requested your imaging first. Electronically signed by: Shannen Sánchez MD, [facility] ([phone]), at 11/06/2023 12:00 PM XR Wrist 3 [...] questions please contact the health patient care specialist that requested your imaging first. Electronically signed by: Shannen Sánchez MD, [facility] ([phone]), at 11/06/2023 12:00 PM XR Knee 1-2 [...] questions please contact the health patient care specialist that requested your imaging first. Electronically signed by: Shannen Sánchez MD, [facility] ([phone]), at 11/06/2023 11:[address] Head wo [...] questions please contact the health patient care specialist that requested your imaging first. Cervical Spine [...] questions please contact the health patient care specialist that requested your imaging first. Electronically signed by: Edson Danielle DO, [facility] ([phone]), at 11/06/2023 11:[address] Chest Abdomen Pelvis w Contrast (Generic) Final Result No evidence of acute thoracic or abdominal pathology. Thank you for letting us participate in the care of this patient. If you are a health care provider and have any questions regarding this report, please contact the number below. For patients who have questions please contact the health patient care specialist that requested your imaging first. Electronically signed by: Matt Edwards MD, [facility] ([phone]), at 11/06/2023 11:[address] Thoracic Spine Reconstruction Final Result 1. No [...] questions please contact the health patient care specialist that requested your imaging first. Electronically signed by: Edsno Danielle DO, [facility] ([phone]), at 11/06/2023 11:[address] Lumbar Spine Reconstruction Final Result 1. No [...] questions please contact the health patient care specialist that requested your imaging first. Chest AP and Pelvis AP Trauma (Generic) [...] questions please contact the health patient care specialist that requested your imaging first. Electronically signed by: Robyn Najera MD, [facility] ([phone]), at 11/06/2023 11:47 AM Cardiac Catheterization (Results Pending) CT Head wo Contrast (Generic) (Results Pending) ENDOSCOPY: Reports and images personally reviewed in [facility] COLONOSCOPY 11/2022: Impression: - Multiple small polyps [...] patient's clinical course. - [facility]. ASSESSMENT & PLAN: 83 [...] is a 83 y.o. male presents to [facility] s/p stroke leading to a fall. Primary [...] IR Biopsy Spine 07/20/2019 Bobby Marshall MD [facility] INTERVENTIONL RAD IR VERTEBROPLASTY LUMBAR MULTIPLE LEVELS 07/20/2019 IR Vertebroplasty Lumbar Multiple Levels 07/20/2019 Bobby Marshall MD [facility] INTERVENTIONL RAD IR VERTEBROPLASTY THORACIC SINGLE LEVEL 10/25/2020 IR Vertebroplasty Thoracic Single Level 10/25/2020 Matt Chisholm MD [facility] INTERVENTIONL RAD PRO COLONOSCOPY, DIAGNOSTIC N/A 12/09/2022 COLONOSCOPY, DIAGNOSTIC performed by Giovani Ponce MD at [facility] ENDOSCOPY PRO COLONOSCOPY, FLEX, W/CONTROL, BLEEDING N/A 06/25/2022 COLONOSCOPY; W CONTROL OF BLEEDING, ANY METHOD performed by Giovani Ponce MD at [facility] ENDOSCOPY PRO EMBLC/THRMBC FEMORAL POPLITEAL AORTO-ILIAC ARTERY Left 05/15/2022 EMBOLECTOMY OR THROMBECTOMY, FEMOROPOPLITEAL, AORTOILIAC ARTERY BY LEG INCISION (WRVU 19.48) performed by Fito Summers MD at [facility] MAIN OR PRO SMALL BOWEL ENDOSCOPY, PAST 2ND DUOD N/A 06/25/2022 SMALL BOWEL ENTEROSCOPY performed by Giovani Ponce MD at [facility] ENDOSCOPY PRO UPPER GI ENDOSCOPY, CTRL BLEED 05/31/2022 EGD, W CONTROL OF BLEEDING, ANY METHOD performed by Giovani Ponce MD at [facility] ENDOSCOPY PRO UPPER GI ENDOSCOPY, DIAGNOSTIC N/A 05/31/2022 EGD, UPPER GI ENDOSCOPY performed by Giovani Ponce MD at [facility] ENDOSCOPY PRO UPPER GI ENDOSCOPY, DIAGNOSTIC N/A 06/25/2022 EGD, UPPER GI ENDOSCOPY performed by Giovani Ponce MD at [facility] ENDOSCOPY HOME MEDICATIONS: Medications Prior to Admission Medication Sig Dispense Refill Last Dose tretinoin (RETIN-A) 0.025 % Cream Apply topically nightly. 45 g 0 Unknown apixaban (Eliquis) 2.5 mg Tablet Take 1 tablet by mouth 2 times daily. 60 tablet 3 Unknown fluticasone propionate (FLONASE) 50 mcg/actuation [place], Suspension 1 spray by Each Nare route [...] prolapse s/p MV repair (2000), CAD s/p MAPARO to OM1 on plavix, PAD, duodenal and [...] None Corrie Mcdaniel MD 11/07/2023 Trauma pager [phone] Associated attestation - Kel Campos MD - 11/09/2023 5:40 PM EST I have seen the patient in person and reviewed the above history and I agree with the details as written. The assessment and plan were formulated in discussion with me and I agree with them as documented. eKl Campos MD * Initial Assessments - Etta Golden, GOLF RANGE ATTENDANT - 11/07/2023 9:10 AM EST Speech Therapy Evaluation Patient Profile: Koko Zamora is a 83 y.o. male with PMHx of A-fib, DMII, CAD s/p stenting (05/2022; on Plavix), HLD, HFrEF, MV repair for mitral valve prolapse (2000), prior GIB on ASA (iso duodenal and colonic angiectasias), PAD (s/p LLE ACLI s/p embolectomy with 4 compartment fasciotomy), and basal cell carcinoma, who presented [place] [facility] [place] with acute-onset right sided weakness, AMS, and aphasia and was found to have a distal left BRUCE occlusion, now s/p tPA. GOLF RANGE ATTENDANT consulted on 11/06 for a bedside swallow [...] LAST has been modified for use at [facility]. Expression Index: NAMING Correct? Comments Pen Yes: [...] WFL Lingual Strength: WFL Other Oral Mucosa: [place] and moist Dentition: Present and intact; reports [...] Koko Zamora was seen for a post-stroke GOLF RANGE ATTENDANT evaluation. Cognitive-Linguistic Function Koko's performance on the LAST was indicative of expressive and receptive language deficits (primarily expressive). He presented with significant word- finding difficulty requiring either Y/N questions (e.g., Are you hungry?) or response choices (e.g., Do you want eggs or Wallisian toast?) to communicate effectively. He reliably identified [...] fatigue easily Pt will benefit from continued GOLF RANGE ATTENDANT services while hospitalized. Speech Therapy Goals: (To be met by discharge) Pt will tolerate the least restrictive diet without further respiratory decompensation. Pt will be independent with aspiration precautions. Pt will participate in ongoing cognitive-linguistic assessment as indicated. Plan: Therapy Frequency (GOLF RANGE ATTENDANT Eval): 2-3 times/wk Patient is in agreement with the plan of care. Total Minutes (Speech Language Pathology): 40 Thanks for the opportunity to contribute to this patient's care. Please feel free to page me with any questions or concerns. Etta Golden MS, 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 06/13/2022 HFrEF (heart [...] IR Biopsy Spine 07/20/2019 Bobby Marshall MD [facility] INTERVENTIONL RAD IR VERTEBROPLASTY LUMBAR MULTIPLE LEVELS 07/20/2019 IR Vertebroplasty Lumbar Multiple Levels 07/20/2019 Bobby Marshall MD [facility] INTERVENTIONL RAD IR VERTEBROPLASTY THORACIC SINGLE LEVEL 10/25/2020 IR Vertebroplasty Thoracic Single Level 10/25/2020 Matt Chisholm MD [facility] INTER[facility] RAD PRO COLONOSCOPY, DIAGNOSTIC N/A 12/09/2022 COLONOSCOPY, DIAGNOSTIC performed by Giovani Ponce MD at [facility] ENDOSCOPY PRO COLONOSCOPY, FLEX, W/CONTROL, BLEEDING N/A 06/25/2022 COLONOSCOPY; W CONTROL OF BLEEDING, ANY METHOD performed by Giovani Ponce MD at [facility] ENDOSCOPY PRO EMBLC/THRMBC FEMORAL POPLITEAL AORTO-ILIAC ARTERY Left 05/15/2022 EMBOLECTOMY OR THROMBECTOMY, FEMOROPOPLITEAL, AORTOILIAC ARTERY BY LEG INCISION (WRVU 19.48) performed by Fito Summers MD at [facility] MAIN OR PRO SMALL BOWEL ENDOSCOPY, PAST 2ND DUOD N/A 06/25/2022 SMALL BOWEL ENTEROSCOPY performed by Giovani Ponce MD at [facility] ENDOSCOPY PRO UPPER GI ENDOSCOPY, CTRL BLEED 05/31/2022 EGD, W CONTROL OF BLEEDING, ANY METHOD performed by Giovani Ponce MD at [facility] ENDOSCOPY PRO UPPER GI ENDOSCOPY, DIAGNOSTIC N/A 05/31/2022 EGD, UPPER GI ENDOSCOPY performed by Giovani Ponce MD at [facility] ENDOSCOPY PRO UPPER GI ENDOSCOPY, DIAGNOSTIC N/A 06/25/2022 EGD, UPPER GI ENDOSCOPY performed by Giovani Pnoce MD at [facility] ENDOSCOPY Subjective/Objective: Aware of hourly neuro checks [...] Koko Zamora Level of Activation: Alert MR#: [id number] [X] Scene Call or [ ] Hospital Transfer : [id number] CC/MECHANISM OF INJURY: 83 y.o. Male s/p GLF. HISTORY OF PRESENT ILLNESS: Koko Zamora is a 83 y.o. male presents to [facility] [place]/p GLF. Description of events leading up to injury includes: Patient was walking into the [facility] hospital forhis scheduled Watchman's procedure when his [...] IR Biopsy Spine 07/20/2019 Bobby Marshall MD [facility] INTERVENTION[facility] RAD IR VERTEBROPLASTY LUMBAR MULTIPLE LEVELS 07/20/2019 IR Vertebroplasty Lumbar Multiple Levels 07/20/2019 Bobby Marshall MD [facility] INTERVENTIONL RAD IR VERTEBROPLASTY THORACIC SINGLE LEVEL 10/25/2020 IR Vertebroplasty Thoracic Single Level 10/25/2020 Matt Chisholm MD [facility] INTERVENTION[facility] RAD PRO COLONOSCOPY, DIAGNOSTIC N/A 12/09/2022 COLONOSCOPY, DIAGNOSTIC performed by Giovani Ponce MD at [facility] ENDOSCOPY PRO COLONOSCOPY, FLEX, W/CONTROL, BLEEDING N/A 06/25/2022 COLONOSCOPY; W CONTROL OF BLEEDING, ANY METHOD performed by Giovani Ponce MD at [facility] ENDOSCOPY PRO EMBLC/THRMBC FEMORAL POPLITEAL AORTO-ILIAC ARTERY Left 05/15/2022 EMBOLECTOMY OR THROMBECTOMY, FEMOROPOPLITEAL, AORTOILIAC ARTERY BY LEG INCISION (WRVU 19.48) performed by Fito Summers MD at [facility] MAIN OR PRO SMALL BOWEL ENDOSCOPY, PAST 2ND DUOD N/A 06/25/2022 SMALL BOWEL ENTEROSCOPY performed by Giovani Ponce MD at [facility] ENDOSCOPY PRO UPPER GI ENDOSCOPY, CTRL BLEED 05/31/2022 EGD, W CONTROL OF BLEEDING, ANY METHOD performed by Giovani Ponce MD at [facility] ENDOSCOPY PRO UPPER GI ENDOSCOPY, DIAGNOSTIC N/A 05/31/2022 EGD, UPPER GI ENDOSCOPY performed by Giovani Ponce MD at [facility] ENDOSCOPY PRO UPPER GI ENDOSCOPY, DIAGNOSTIC N/A 06/25/2022 EGD, UPPER GI ENDOSCOPY performed by Giovani Ponce MD at [facility] ENDOSCOPY ALLERGIES: Allergies Allergen Reactions Aspirin Other [...] tablet 3 fluticasone propionate (FLONASE) 50 mcg/actuation [place], Suspension 1 spray by Each Nare route [...] Negative mcL Appearance UA Clear Clear Spec [place] UA >=1.030 (A) 1.005 - 1.030 Color [...] aphasia. 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 No results for input(s): PHART, VAT8IBQ, PO2ART, SZN2RIJ in the last 168 hours. Recent Labs [...] Fournier MD Please page Vascular Neurology at #[phone] with any questions. Miguel Arias DO Neurology Resident, PGY-3 11/06/23 [place] [address] Associated attestation - Galilea Fournier MD - [...] here for LASHAY occlusion device placement, while [facility] developed R leg weakness as witnessed on [...] Glucose, POC 140 65 - 199 mg/dL [facility] Comment: Supplemental ranges: <140 mg/dL before meals <180 mg/dL all other times of the day Blood 11/12/2023 7:46 AM EST 11/12/2023 7:46 AM EST Galilea Fournier MD POINT OF CARE TEST O RDERABLES [facility] [place] [address] * Differential, Automated (11/12/2023 6:04 AM EST) Neutrophil % 66.1 % [facility] Neutrophil Absolute 4.60 1.70 - 6.10 x10(3)/[facility] Lymph % 20.7 % [facility] Lymphocytes Abs 1.4 0.9 - 3.2 x10(3)/[facility] Monocyte % 10.4 % [facility] Monocyte Abs 0.7 0.3 - 0.9 x10(3)/[facility] LABOR[facility]ORY Eos % 1.6 % [facility] Eosinophils Abs 0.1 0.0 - 0.4 x10(3)/[facility] LABOR[facility]ORY Basophil % 0.9 % [facility] Baso Absolute 0.1 0.0 - 0.1 x10(3)/[facility] LABORATORY Immature Gran % 0.30 % [facility] Comment: Immature granulocytes(IG's)percentage and absolute count will include metamyelocytes, myelocytes, and promyelocytes. Blood smears from CBCs yielding IG's will be scanned manually for concordance. If this scan disagrees with the automated IG or if promyelocytes are noted, a manual differential will be performed. Immature Gran Absolute 0.02 0.00 - 0.04 x10(3)/[facility] LABOR[facility]ORY Blood 11/12/2023 6:04 AM EST 11/12/2023 6:39 AM EST Narrative Resulting Agency Comment Spec In Lab Barbie Long [employer] HEMATOLOGY ORDERAB LES [facility] [place] [address] * (ABNORMAL) Hemogram (11/12/2023 6:04 AM EST) White Blood Cell 7.0 4.0 - 9.5 x10(3)/mc L [facility] Red Blood Cell 5.21 4.58 - 5.54 x10(6)/mc L [facility] Hemoglobin 16.4 13.7 - 16.5 g/dL [facility] Hematocrit 47.4 40.5 - 48.5 % [facility] Mean Cell Volume 91.0 82.9 - 93.1 fL [facility] Mean Cell Hemoglobin 31.5 27.5 - 32.1 pg [facility] Mean Cell Hemoglobin Concentration 34.6 32.0 - 35.7 g/dL [facility] Platelet 133(L) 145 - 357 x10(3)/mc L [facility] RDW Standard Deviation 42.0 36.0 - 45.0 fL [facility] RDW coefficient of variation 12.7 11.4 - 13.8 % [facility] Mean Platelet Volume 10.4 7.6 - 12.9 fL [facility] NRBC% auto 0.0 % [facility] NRBC Absolute 0.000 0.000 - 0.000 x10(3)/mc L [facility] Blood 11/12/2023 6:04 AM EST 11/12/2023 6:39 AM EST Narrative Resulting Agency Comment Spec In Lab Barbie Long HIRAL HEMATOLOGY ORDERAB LES [facility] [place] [address] * Phosphorus (11/12/2023 6:04 AM EST) Phosphorus 2.8 2.5 - 4.5 mg/dL [facility] Blood 11/12/2023 6:04 AM EST 11/12/2023 6:39 AM EST Narrative Resulting Agency Comment Spec In Lab Barbie Long [employer] CHEMISTRY ORDERABL ES Performing Organization Address [facility] Co de Phone Number [facility] [place] [address] * Magnesium (11/12/2023 6:04 AM EST) Magnesium 0.84 0.69 - 1.07 mmol/L [facility] Blood 11/12/2023 6:04 AM EST 11/12/2023 6:39 AM EST Narrative Resulting Agency Comment Spec In Lab Barbie Long [employer] CHEMISTRY ORDERABL ES Performing Organization Address [facility] Phone Number [facility] [place] [address] * (ABNORMAL) Basic Metabolic Panel (non-fasting) (11/12/2023 6:04 AM EST) Glucose 159 65 - 199 mg/dL [facility] Comment:Diabetes: >=200 mg/d L plus symptoms Blood Urea Nitrogen 24(H) 10 - 20 mg/dL [facility] Creatinine 0.87 0.80 - 1.50 mg/dL [facility] Sodium 139 135 - 145 mmol/L [facility] Potassium 4.1 3.5 - 5.0 mmol/L [facility] Comment: Please note: ??Patients with WBC >100,000 may have falsely elevated Potassium levels. ??For accurate Potassium quantification in these patients send serum separator tube (gold top) for subsequent determinations. ??Contact the Clinical Chemistry Laboratory if there are any questions. Chloride 104 98 - 107 mmol/L [facility] Carbon Dioxide 23 22 - 31 mmol/L [facility] Anion Gap 12 5 - 15 mmol/L [facility] Calcium 9.0 8.5 - 10.5 mg/dL [facility] Est Glomerular Filtration Rate 87 >=60 mL/min/1. 73 m?? [facility] Comment: This patient's estimated GFR [...] APRN CHEMISTRY ORDERABL ES Performing Organization Address [facility] Co de Phone Number [facility] [place] [address] * POCT Glucose (11/12/2023 3:57 AM EST) Glucose, POC 157 65 - 199 mg/dL [facility] Comment: Supplemental ranges: <140 mg/dL before meals <180 mg/dL all other times of the day Blood 11/12/2023 3:57 AM EST 11/12/2023 3:57 AM EST Galilea Fournier MD POINT OF CARE TEST O RDERABLES Performing Organization Address [facility] Co de Phone Number [facility] [place] [address] * POCT Glucose (11/11/2023 11:33 PM EST) Glucose, POC 138 65 - 199 mg/dL [facility] Comment: Supplemental ranges: <140 mg/dL before meals <180 mg/dL all other times of the day Blood 11/11/2023 11:3 3 PM EST 11/11/2023 11:33 PM EST Galilea Fournier MD POINT OF CARE TEST O RDERABLES Performing Organization Address [facility] Co de Phone Number [facility] [place] [address] * POCT Glucose (11/11/2023 8:26 PM EST) Glucose, POC 149 65 - 199 mg/dL [facility] Comment: Supplemental ranges: <140 mg/dL before meals <180 mg/dL all other times of the day Blood 11/11/2023 8:26 PM EST 11/11/2023 8:26 PM EST Galilea Fournier MD POINT OF CARE TEST O RDERAJERRY [facility] [place] [address] * (ABNORMAL) POCT Glucose (11/11/2023 3:52 PM EST) Glucose, POC 228(H) 65 - 199 mg/dL [facility] Comment: Supplemental ranges: <140 mg/dL before meals <180 mg/dL all other times of the day Blood 11/11/2023 3:52 PM EST 11/11/2023 3:52 PM EST Galilea Fournier MD POINT OF CARE TEST O RDERAJERRY [facility] [place] [address] * POCT Glucose (11/11/2023 11:44 AM EST) Glucose, POC 150 65 - 199 mg/dL [facility] Comment: Supplemental ranges: <140 mg/dL before meals <180 mg/dL all other times of the day Blood 11/11/2023 11:4 4 AM EST 11/11/2023 11:44 AM EST Galilea Fournier MD POINT OF CARE TEST O RDERAJERRY [facility] [place] [address] * POCT Glucose (11/11/2023 6:13 AM EST) Glucose, POC 142 65 - 199 mg/dL [facility] Comment: Supplemental ranges: <140 mg/dL before meals <180 mg/dL all other times of the day Blood 11/11/2023 6:13 AM EST 11/11/2023 6:13 AM EST Galilea Fournier MD POINT OF CARE TEST O RDERABLES [facility] [place] [address] * (ABNORMAL) Differential, Automated (11/11/2023 4:45 AM EST) Pathologist [facility] Neutrophil % 67.5 % [facility] Neutrophil Absolute 5.02 1.70 - 6.10 x10(3)/mc L [facility] Lymph % 18.8 % [facility] Lymphocytes Abs 1.4 0.9 - 3.2 x10(3)/[facility] LABORATORY Monocyte % 10.8 % [facility] Monocyte Abs 0.8 0.3 - 0.9 x10(3)/mc L [facility] Eos % 1.5 % [facility] Eosinophils Abs 0.1 0.0 - 0.4 x10(3)/[facility] LABORATORY Basophil % 0.7 % [facility] Baso Absolute 0.0 0.0 - 0.1 x10(3)/mc L [facility] Immature Gran % 0.70 % [facility] Comment: Immature granulocytes(IG's)percentage and absolute count will include metamyelocytes, myelocytes, and promyelocytes. Blood smears from CBCs yielding IG's will be scanned manually for concordance. If this scan disagrees with the automated IG or if promyelocytes are noted, a manual differential will be performed. Immature Gran Absolute 0.05(H) 0.00 - 0.04 x10(3)/mc L [facility] Blood 11/11/2023 4:45 AM EST 11/11/2023 5:19 AM EST Narrative Resulting Agency Comment Spec In Lab Barbie L Miles [employer] HEMATOLOGY ORDERAB LES [facility] [place] [place] [address] * (ABNORMAL) Hemogram (11/11/2023 4:45 AM EST) White Blood Cell 7.4 4.0 - 9.5 x10(3)/mc L [facility] Red Blood Cell 5.01 4.58 - 5.54 x10(6)/mc L [facility] Hemoglobin 15.8 13.7 - 16.5 g/dL [facility] Hematocrit 46.0 40.5 - 48.5 % [facility] Mean Cell Volume 91.8 82.9 - 93.1 fL [facility] Mean Cell Hemoglobin 31.5 27.5 - 32.1 pg [facility] Mean Cell Hemoglobin Concentration 34.3 32.0 - 35.7 g/dL [facility] Platelet 138(L) 145 - 357 x10(3)/mc L [facility] RDW Standard Deviation 43.7 36.0 - 45.0 fL [facility] RDW coefficient of variation 12.9 11.4 - 13.8 % [facility] Mean Platelet Volume 10.9 7.6 - 12.9 fL [facility] NRBC% auto 0.0 % [facility] NRBC Absolute 0.000 0.000 - 0.000 x10(3)/mc L [facility] Blood 11/11/2023 4:45 AM EST 11/11/2023 5:19 AM EST Narrative Resulting Agency Comment Spec In Lab Barbie Long APRN HEMATOLOGY ORDERAB LES [facility] [place] [address] * Phosphorus (11/11/2023 4:45 AM EST) Phosphorus 2.8 2.5 - 4.5 mg/dL [facility] Blood 11/11/2023 4:45 AM EST 11/11/2023 5:19 AM EST Narrative Resulting Agency Comment Spec In Lab Barbie Long [employer] CHEMISTRY ORDERABL ES Performing Organization Address City/[facility]/ZIP Co de Phone Number [facility] [place] [address] * Magnesium (11/11/2023 4:45 AM EST) Magnesium 0.86 0.69 - 1.07 mmol/L [facility] Blood 11/11/2023 4:45 AM EST 11/11/2023 5:19 AM EST Narrative Resulting Agency Comment Spec In Lab Barbie Long [employer] CHEMISTRY ORDERABL ES Performing Organization Address [facility] Co de Phone Number [facility] [place] [address] * (ABNORMAL) Basic Metabolic Panel (non-fasting) (11/11/2023 4:45 AM EST) Glucose 206(H) 65 - 199 mg/dL [facility] Comment:Diabetes: >=200 mg/d L plus symptoms Blood Urea Nitrogen 20 10 - 20 mg/dL [facility] Creatinine 0.79(L) 0.80 - 1.50 mg/dL [facility] Sodium 139 135 - 145 mmol/L [facility] Potassium 3.9 3.5 - 5.0 mmol/L [facility] Comment: Please note: ??Patients with WBC >100,000 may have falsely elevated Potassium levels. ??For accurate Potassium quantification in these patients send serum separator tube (gold top) for subsequent determinations. ??Contact the Clinical Chemistry Laboratory if there are any questions. Chloride 103 98 - 107 mmol/L [facility] Carbon Dioxide 25 22 - 31 mmol/L [facility] Anion Gap 11 5 - 15 mmol/L [facility] Calcium 9.1 8.5 - 10.5 mg/dL [facility] Est Glomerular Filtration Rate 89 >=60 mL/min/1. 73 m?? [facility] Comment: This patient's estimated GFR [...] APRN CHEMISTRY ORDERABL ES Performing Organization Address [facility] Co de Phone Number [facility] [place] [address] * POCT Glucose (11/11/2023 3:59 AM EST) Glucose, POC 198 65 - 199 mg/dL [facility] Comment: Supplemental ranges: <140 mg/dL before meals <180 mg/dL all other times of the day Blood 11/11/2023 3:59 AM EST 11/11/2023 3:59 AM EST Galilea Fournier MD POINT OF CARE TEST O RDERABLES Performing Organization Address [facility] Co de Phone Number [facility] [place] [address] * POCT Glucose (11/10/2023 11:06 PM EST) Glucose, POC 134 65 - 199 mg/dL [facility] Comment: Supplemental ranges: <140 mg/dL before meals <180 mg/dL all other times of the day Blood 11/10/2023 11:0 6 PM EST 11/10/2023 11:06 PM EST Galilea Fournier MD POINT OF CARE TEST O RDERABLES Performing Organization Address [facility] Co de Phone Number [facility] [place] [address] * POCT Glucose (11/10/2023 8:16 PM EST) Glucose, POC 152 65 - 199 mg/dL [facility] Comment: Supplemental ranges: <140 mg/dL before meals <180 mg/dL all other times of the day Blood 11/10/2023 8:16 PM EST 11/10/2023 8:16 PM EST Galilea Fournier MD POINT OF CARE TEST O RDERABLES Performing Organization Address City/[facility] Co de Phone Number [facility] [place] [address] * POCT Glucose (11/10/2023 3:58 PM EST) Glucose, POC 150 65 - 199 mg/dL [facility] Comment: Supplemental ranges: <140 mg/dL before meals <180 mg/dL all other times of the day Blood 11/10/2023 3:58 PM EST 11/10/2023 3:58 PM EST Galilea Fournier MD POINT OF CARE TEST O RDERAJERRY Performing Organization Address [facility] Co de Phone Number [facility] [place] [address] * POCT Glucose (11/10/2023 11:44 AM EST) Glucose, POC 180 65 - 199 mg/dL [facility] Comment: Supplemental ranges: <140 mg/dL before meals <180 mg/dL all other times of the day Blood 11/10/2023 11:4 4 AM EST 11/10/2023 11:44 AM EST Galilea Fournier MD POINT OF CARE TEST O RDERABLES Performing Organization Address City/[facility] Co de Phone Number [facility] [place] [address] * POCT Glucose (11/10/2023 7:53 AM EST) Glucose, POC 172 65 - 199 mg/dL [facility] Comment: Supplemental ranges: <140 mg/dL before meals <180 mg/dL all other times of the day Blood 11/10/2023 7:53 AM EST 11/10/2023 7:53 AM EST Galilea Fournier MD POINT OF CARE TEST O RDERABLES Performing Organization Address [facility] [place]/ZIP Co de Phone Number [facility] [place] [address] * POCT Glucose (11/10/2023 6:13 AM EST) Glucose, POC 124 65 - 199 mg/dL [facility] Comment: Supplemental ranges: <140 mg/dL before meals <180 mg/dL all other times of the day Blood 11/10/2023 6:13 AM EST 11/10/2023 6:13 AM EST Galilea Fournier MD POINT OF CARE TEST O RADHA Performing Organization Address [facility] [place]/[facility] Co de Phone Number [facility] [place] [address] * Differential, Automated (11/10/2023 5:05 AM EST) Neutrophil % 68.4 % [facility] Neutrophil Absolute 5.43 1.70 - 6.10 x10(3)/[facility] Lymph % 18.5 % [facility] Lymphocytes Abs 1.5 0.9 - 3.2 x10(3)/[facility] Monocyte % 10.8 % [facility] Monocyte Abs 0.9 0.3 - 0.9 x10(3)/[facility] Eos % 1.4 % [facility] Eosinophils Abs 0.1 0.0 - 0.4 x10(3)/[facility] Basophil % 0.4 % [facility] Baso Absolute 0.0 0.0 - 0.1 x10(3)/[facility] Immature Gran % 0.50 % [facility] Comment: Immature granulocytes(IG's)percentage and absolute count will include metamyelocytes, myelocytes, and promyelocytes. Blood smears from CBCs yielding IG's will be scanned manually for concordance. If this scan disagrees with the automated IG or if promyelocytes are noted, a manual differential will be performed. Immature Gran Absolute 0.04 0.00 - 0.04 x10(3)/mcL [facility] Blood 11/10/2023 5:05 AM EST 11/10/2023 5:40 AM EST Narrative Resulting Agency Comment Spec In Lab Barbie Long [employer] HEMATOLOGY ORDERAB LES Performing Organization Address City/[facility] [place]/ZIP Co de Phone Number [facility] [place] [address] * (ABNORMAL) Hemogram (11/10/2023 5:05 AM EST) White Blood Cell 7.9 4.0 - 9.5 x10(3)/mc L [facility] Red Blood Cell 5.05 4.58 - 5.54 x10(6)/mc L [facility] Hemoglobin 16.1 13.7 - 16.5 g/dL [facility] Hematocrit 46.1 40.5 - 48.5 % [facility] Mean Cell Volume 91.3 82.9 - 93.1 fL [facility] Mean Cell Hemoglobin 31.9 27.5 - 32.1 pg [facility] Mean Cell Hemoglobin Concentration 34.9 32.0 - 35.7 g/dL [facility] Platelet 135(L) 145 - 357 x10(3)/mc L [facility] RDW Standard Deviation 43.1 36.0 - 45.0 fL [facility] RDW coefficient of variation 12.9 11.4 - 13.8 % [facility] Mean Platelet Volume 10.8 7.6 - 12.9 fL [facility] NRBC% auto 0.0 % [facility] NRBC Absolute 0.000 0.000 - 0.000 x10(3)/mc L [facility] Blood 11/10/2023 5:05 AM EST 11/10/2023 5:40 AM EST Narrative Resulting Agency Comment Spec In Lab Babrie Long [employer] HEMATOLOGY ORDERAB LES [facility] [place] [address] * Phosphorus (11/10/2023 5:05 AM EST) Phosphorus 3.4 2.5 - 4.5 mg/dL [facility] Blood 11/10/2023 5:05 AM EST 11/10/2023 5:40 AM EST Narrative Resulting Agency Comment Spec In Lab Barbie Long [employer] CHEMISTRY ORDERABL ES Performing Organization Address [facility] de Phone Number [facility] [place] [address] * Magnesium (11/10/2023 5:05 AM EST) Magnesium 0.90 0.69 - 1.07 mmol/L [facility] Blood 11/10/2023 5:05 AM EST 11/10/2023 5:40 AM EST Narrative Resulting Agency Comment Spec In Lab Barbie Long [employer] CHEMISTRY ORDERABL ES Performing Organization Address [facility] de Phone Number [facility] [place] [address] * (ABNORMAL) Basic Metabolic Panel (non-fasting) (11/10/2023 5:05 AM EST) Glucose 141 65 - 199 mg/dL [facility] Comment:Diabetes: >=200 mg/d L plus symptoms Blood Urea Nitrogen 23(H) 10 - 20 mg/dL [facility] Creatinine 0.97 0.80 - 1.50 mg/dL [facility] Sodium 141 135 - 145 mmol/L [facility] Potassium 4.2 3.5 - 5.0 mmol/L [facility] Comment: Please note: ??Patients with WBC >100,000 may have falsely elevated Potassium levels. ??For accurate Potassium quantification in these patients send serum separator tube (gold top) for subsequent determinations. ??Contact the Clinical Chemistry Laboratory if there are any questions. Chloride 104 98 - 107 mmol/L [facility] Carbon Dioxide 25 22 - 31 mmol/L [facility] Anion Gap 12 5 - 15 mmol/L [facility] Calcium 9.1 8.5 - 10.5 mg/dL [facility] Est Glomerular Filtration Rate 78 >=60 mL/min/1. 73 m?? [facility] Comment: This patient's estimated GFR [...] APRN CHEMISTRY ORDERABL ES Performing Organization Address [facility] [place]/[facility] Co de Phone Number [facility] [place] [place] [address] * POCT Glucose (11/10/2023 3:49 AM EST) Glucose, POC 122 65 - 199 mg/dL [facility] Comment: Supplemental ranges: <140 mg/dL before meals <180 mg/dL all other times of the day Blood 11/10/2023 3:49 AM EST 11/10/2023 3:49 AM EST Galilea Fournier MD POINT OF CARE TEST O RDERABLES [facility] [place] [address] * POCT Glucose (11/09/2023 11:26 PM EST) Glucose, POC 142 65 - 199 mg/dL [facility] Comment: Supplemental ranges: <140 mg/dL before meals <180 mg/dL all other times of the day Blood 11/09/2023 11:2 6 PM EST 11/09/2023 11:26 PM EST Galilea Fournier MD POINT OF CARE TEST O RDERABLES Performing Organization Address City/[facility] [place]/ZIP Co de Phone Number [facility] [place] [address] * POCT Glucose (11/09/2023 8:12 PM EST) Glucose, POC 160 65 - 199 mg/dL [facility] Comment: Supplemental ranges: <140 mg/dL before meals <180 mg/dL all other times of the day Blood 11/09/2023 8:12 PM EST 11/09/2023 8:12 PM EST Galilea Fournier MD POINT OF CARE TEST O RDERABLES Performing Organization Address [facility] [place]/[facility] Co de Phone Number [facility] [place] [address] * (ABNORMAL) POCT Glucose (11/09/2023 3:15 PM EST) Glucose, POC 235(H) 65 - 199 mg/dL [facility] Comment: Supplemental ranges: <140 mg/dL before meals <180 mg/dL all other times of the day Blood 11/09/2023 3:15 PM EST 11/09/2023 3:15 PM EST Galilea Fournier MD POINT OF CARE TEST O RDERABLES Performing Organization Address [facility] [place]/[facility] Co de Phone Number [facility] [place] [address] * POCT Glucose (11/09/2023 8:40 AM EST) Glucose, POC 157 65 - 199 mg/dL [facility] Comment: Supplemental ranges: <140 mg/dL before meals <180 mg/dL all other times of the day Blood 11/09/2023 8:40 AM EST 11/09/2023 8:40 AM EST Galilea Fournier MD POINT OF CARE TEST O RDERABLES Performing Organization Address City/[facility] [place]/[facility] Co de Phone Number [facility] [place] [address] * (ABNORMAL) Differential, Automated (11/09/2023 6:18 AM EST) Neutrophil % 70.3 % [facility] Neutrophil Absolute 6.30(H) 1.70 - 6.10 x10(3)/ L [facility] Lymph % 16.2 % [facility] Lymphocytes Abs 1.4 0.9 - 3.2 x10(3)/ L [facility] Monocyte % 11.3 % [facility] Monocyte Abs 1.0(H) 0.3 - 0.9 x10(3)/ L [facility] Eos % 1.2 % [facility] Eosinophils Abs 0.1 0.0 - 0.4 x10(3)/[facility] LABORATORY Basophil % 0.6 % [facility] Baso Absolute 0.0 0.0 - 0.1 x10(3)/ L [facility] Immature Gran % 0.40 % [facility] Comment: Immature granulocytes(IG's)percentage and absolute count will include metamyelocytes, myelocytes, and promyelocytes. Blood smears from CBCs yielding IG's will be scanned manually for concordance. If this scan disagrees with the automated IG or if promyelocytes are noted, a manual differential will be performed. Immature Gran Absolute 0.04 0.00 - 0.04 x10(3)/[facility] LABORATORY Blood 11/09/2023 6:18 AM EST 11/09/2023 6:29 AM EST Narrative Resulting Agency Comment Spec In Lab Barbie Gail Long APRN HEMATOLOGY ORDERAB LES [facility] [place] [address] * (ABNORMAL) Hemogram (11/09/2023 6:18 AM EST) White Blood Cell 9.0 4.0 - 9.5 x10(3)/ L [facility] Red Blood Cell 5.19 4.58 - 5.54 x10(6)/[facility] LABORATORY Hemoglobin 16.3 13.7 - 16.5 g/dL [facility] Hematocrit 47.1 40.5 - 48.5 % [facility] Mean Cell Volume 90.8 82.9 - 93.1 fL [facility] Mean Cell Hemoglobin 31.4 27.5 - 32.1 pg [facility] Mean Cell Hemoglobin Concentration 34.6 32.0 - 35.7 g/dL [facility] Platelet 130(L) 145 - 357 x10(3)/mc L [facility] RDW Standard Deviation 42.6 36.0 - 45.0 fL [facility] RDW coefficient of variation 12.9 11.4 - 13.8 % [facility] Mean Platelet Volume 10.2 7.6 - 12.9 fL [facility] NRBC% auto 0.0 % [facility] NRBC Absolute 0.000 0.000 - 0.000 x10(3)/mc L [facility] Blood 11/09/2023 6:18 AM EST 11/09/2023 6:29 AM EST Narrative Resulting Agency Comment Spec In Lab Barbie Long [employer] HEMATOLOGY ORDERAB LES Performing Organization Address City/[facility] [place]/ZIP Co de Phone Number [facility] [place] [address] * Phosphorus (11/09/2023 6:18 AM EST) Phosphorus 2.8 2.5 - 4.5 mg/dL [facility] Blood 11/09/2023 6:18 AM EST 11/09/2023 6:29 AM EST Narrative Resulting Agency Comment Spec In Lab Barbie Long [employer] CHEMISTRY ORDERABL ES Performing Organization Address City/[facility] [place]/ZIP Co de Phone Number [facility] [place] [address] * Magnesium (11/09/2023 6:18 AM EST) Magnesium 0.93 0.69 - 1.07 mmol/L [facility] Blood 11/09/2023 6:18 AM EST 11/09/2023 6:29 AM EST Narrative Resulting Agency Comment Spec In Lab Barbie Long HIRAL CHEMISTRY ORDERABL ES [facility] [place] [address] * (ABNORMAL) Basic Metabolic Panel (non-fasting) (11/09/2023 6:18 AM EST) Glucose 167 65 - 199 mg/dL [facility] Comment:Diabetes: >=200 mg/d L plus symptoms Blood Urea Nitrogen 22(H) 10 - 20 mg/dL [facility] Creatinine 0.74(L) 0.80 - 1.50 mg/dL [facility] Sodium 140 135 - 145 mmol/L [facility] Potassium 4.0 3.5 - 5.0 mmol/L [facility] Comment: Please note: ??Patients with WBC >100,000 may have falsely elevated Potassium levels. ??For accurate Potassium quantification in these patients send serum separator tube (gold top) for subsequent determinations. ??Contact the Clinical Chemistry Laboratory if there are any questions. Chloride 105 98 - 107 mmol/L [facility] Carbon Dioxide 24 22 - 31 mmol/L [facility] Anion Gap 11 5 - 15 mmol/L [facility] Calcium 8.7 8.5 - 10.5 mg/dL [facility] Est Glomerular Filtration Rate 91 >=60 mL/min/1. 73 m?? [facility] Comment: This patient's estimated GFR [...] HIRAL CHEMISTRY ORDERABL ES Performing Organization Address [facility] [place]/[facility] Co de Phone Number [facility] [place] [address] * POCT Glucose (11/08/2023 9:00 PM EST) Glucose, POC 171 65 - 199 mg/dL [facility] Comment: Supplemental ranges: <140 mg/dL before meals <180 mg/dL all other times of the day Blood 11/08/2023 9:00 PM EST 11/08/2023 9:00 PM EST Galilea Fournier MD POINT OF CARE TEST O RDERABLES Performing Organization Address [facility] [place]/[facility] Co de Phone Number [facility] [place] [address] * (ABNORMAL) POCT Glucose (11/08/2023 5:26 PM EST) Glucose, POC 247(H) 65 - 199 mg/dL [facility] Comment: Supplemental ranges: <140 mg/dL before meals <180 mg/dL all other times of the day Blood 11/08/2023 5:26 PM EST 11/08/2023 5:26 PM EST Galilea Fournier MD POINT OF CARE TEST O RDERABLES Performing Organization Address [facility] [place]/[facility] de Phone Number [facility] [place] [address] * MRI Brain wo Contrast (11/08/2023 1:19 [...] questions please contact the health patient care specialist that requested your imaging first. ? Electronically signed by: Edson Danielle DO, [facility] ??([phone]), at 11/08/2023 1:34 PM Narrative 11/08/2023 1:34 [...] patients who have questions please contactthe health patient care specialist that requested your imaging first. Electronically signed by: Edson Danielle DO, [facility]([phone]), at 11/08/2023 1:34 PM Barbie Long APRN IMG MRI ORDERABLES * (ABNORMAL) POCT Glucose (11/08/2023 11:53 AM EST) Glucose, POC 213(H) 65 - 199 mg/dL [facility] Comment: Supplemental ranges: <140 mg/dL before meals <180 mg/dL all other times of the day Blood 11/08/2023 11:5 3 AM EST 11/08/2023 11:53 AM EST Galilea Fournier MD POINT OF CARE TEST O RDERABLES [facility] [place] [address] * (ABNORMAL) POCT Glucose (11/08/2023 8:33 AM EST) Glucose, POC 258(H) 65 - 199 mg/dL [facility] Comment: Supplemental ranges: <140 mg/dL before meals <180 mg/dL all other times of the day Blood 11/08/2023 8:33 AM EST 11/08/2023 8:33 AM EST Galilea Fournier MD POINT OF [place] [address] * (ABNORMAL) Differential, Automated (11/08/2023 2:27 AM EST) Neutrophil % 72.0 % [facility] Neutrophil Absolute 7.19(H) 1.70 - 6.10 x10(3)/mc L [facility] Lymph % 15.0 % [facility] Lymphocytes Abs 1.5 0.9 - 3.2 x10(3)/mc L [facility] Monocyte % 11.6 % [facility] Monocyte Abs 1.2(H) 0.3 - 0.9 x10(3)/mc L [facility] Eos % 0.7 % [facility] Eosinophils Abs 0.1 0.0 - 0.4 x10(3)/mc L [facility] Basophil % 0.4 % [facility] Baso Absolute 0.0 0.0 - 0.1 x10(3)/mc L [facility] Immature Gran % 0.30 % [facility] Comment: Immature granulocytes(IG's)percentage and absolute count will include metamyelocytes, myelocytes, and promyelocytes. Blood smears from CBCs yielding IG's will be scanned manually for concordance. If this scan disagrees with the automated IG or if promyelocytes are noted, a manual differential will be performed. Immature Gran Absolute 0.03 0.00 - 0.04 x10(3)/mc L [facility] Blood 11/08/2023 2:27 AM EST 11/08/2023 2:49 AM EST Narrative Resulting Agency Comment Spec In Lab Miguel Arias DO HEMATOLOGY ORDERABLE S Performing Organization Address City/[facility] [place] [address] * (ABNORMAL) Hemogram (11/08/2023 2:27 AM EST) White Blood Cell 10.0(H) 4.0 - 9.5 x10(3)/mc L [facility] Red Blood Cell 5.00 4.58 - 5.54 x10(6)/mc L [facility] Hemoglobin 15.6 13.7 - 16.5 g/dL [facility] Hematocrit 45.3 40.5 - 48.5 % [facility] Mean Cell Volume 90.6 82.9 - 93.1 fL [facility] Mean Cell Hemoglobin 31.2 27.5 - 32.1 pg [facility] Mean Cell Hemoglobin Concentration 34.4 32.0 - 35.7 g/dL [facility] Platelet 152 145 - 357 x10(3)/mc L [facility] RDW Standard Deviation 42.6 36.0 - 45.0 fL [facility] RDW coefficient of variation 12.9 11.4 - 13.8 % [facility] Mean Platelet Volume 10.6 7.6 - 12.9 fL [facility] NRBC% auto 0.0 % [facility] NRBC Absolute 0.000 0.000 - 0.000 x10(3)/ L [facility] Blood 11/08/2023 2:27 AM EST 11/08/2023 2:49 AM EST Narrative Resulting Agency Comment Spec In Lab Miguel Arias DO HEMATOLOGY ORDERABLE S [facility] [place] [address] * Phosphorus (11/08/2023 2:27 AM EST) Phosphorus 3.2 2.5 - 4.5 mg/dL [facility] Blood 11/08/2023 2:27 AM EST 11/08/2023 2:49 AM EST Narrative Resulting Agency Comment Spec In Lab Barbie Long [employer] CHEMISTRY ORDERABL ES [facility] [place] [address] * Magnesium (11/08/2023 2:27 AM EST) Magnesium 0.89 0.69 - 1.07 mmol/L [facility] Blood 11/08/2023 2:27 AM EST 11/08/2023 2:49 AM EST Narrative Resulting Agency Comment Spec In Lab Barbie Long HIRAL CHEMISTRY ORDERABL ES [facility] [place] [address] * (ABNORMAL) Basic Metabolic Panel (non-fasting) (11/08/2023 2:27 AM EST) Glucose 229(H) 65 - 199 mg/dL [facility] Comment:Diabetes: >=200 mg/d L plus symptoms Blood Urea Nitrogen 26(H) 10 - 20 mg/dL [facility] Creatinine 0.88 0.80 - 1.50 mg/dL [facility] Sodium 142 135 - 145 mmol/L [facility] Potassium 4.2 3.5 - 5.0 mmol/L [facility] Comment: Please note: ??Patients with WBC >100,000 may have falsely elevated Potassium levels. ??For accurate Potassium quantification in these patients send serum separator tube (gold top) for subsequent determinations. ??Contact the Clinical Chemistry Laboratory if there are any questions. Chloride 107 98 - 107 mmol/L [facility] Carbon Dioxide 23 22 - 31 mmol/L [facility] Anion Gap 12 5 - 15 mmol/L [facility] Calcium 8.8 8.5 - 10.5 mg/dL [facility] Est Glomerular Filtration Rate 86 >=60 mL/min/1. 73 m?? [facility] Comment: This patient's estimated GFR [...] SOLORION CHEMISTRY ORDERABL ES Performing Organization Address [facility] [place]/[facility] Co de Phone Number [facility] [place] [address] * (ABNORMAL) POCT Glucose (11/07/2023 8:12 PM EST) Glucose, POC 211(H) 65 - 199 mg/dL [facility] Comment: Supplemental ranges: <140 mg/dL before meals <180 mg/dL all other times of the day Blood 11/07/2023 8:12 PM EST 11/07/2023 8:12 PM EST Galilea Fournier MD POINT OF CARE TEST O RDERAJERRY Performing Organization Address [facility] [place]/[facility] Co de Phone Number [facility] [place] [address] * (ABNORMAL) POCT Glucose (11/07/2023 5:58 PM EST) Glucose, POC 260(H) 65 - 199 mg/dL [facility] Comment: Supplemental ranges: <140 mg/dL before meals <180 mg/dL all other times of the day Blood 11/07/2023 5:58 PM EST 11/07/2023 5:58 PM EST Galilea Fournier MD POINT OF CARE TEST O RDERABLES Performing Organization Address City/[facility] [place]/[facility] Co de Phone Number [facility] [place] [address] * (ABNORMAL) POCT Glucose (11/07/2023 12:03 PM EST) Glucose, POC 288(H) 65 - 199 mg/dL [facility] Comment: Supplemental ranges: <140 mg/dL before meals <180 mg/dL all other times of the day Blood 11/07/2023 12:0 3 PM EST 11/07/2023 12:03 PM EST Fernanda Pineda MD POINT [place] [address] * CT Head wo Contrast (Generic) (11/07/2023 [...] questions please contact the health patient care specialist that requested your imaging first. ? Electronically signed by: Edson Danielle DO, [facility] ??([phone]), at 11/07/2023 2:19 PM Narrative 11/07/2023 2:19 [...] patients who have questions please contactthe health patient care specialist that requested your imaging first. Electronically signed by: Edson Danielle DO, [facility]([phone]), at 11/07/2023 2:19 PM Barbie Orr MD IM CT ORDERABLES * POCT Glucose (11/07/2023 8:13 AM EST) [facility] Signature Glucose, POC 178 65 - 199 mg/dL [facility] Comment: Supplemental ranges: <140 mg/dL before meals <180 mg/dL all other times of the day Blood 11/07/2023 8:13 AM EST 11/07/2023 8:13 AM EST Fernanda Pineda MD POINT OF CARE TEST O RDERABLES [facility] [place] [address] * (ABNORMAL) Differential, Automated (11/07/2023 2:30 AM EST) Neutrophil % 71.0 % [facility] Neutrophil Absolute 6.89(H) 1.70 - 6.10 x10(3)/[facility] LABORATORY Lymph % 17.3 % [facility] Lymphocytes Abs 1.7 0.9 - 3.2 x10(3)/[facility] LABORATORY Monocyte % 10.5 % [facility] Monocyte Abs 1.0(H) 0.3 - 0.9 x10(3)/[facility] LABORATORY Eos % 0.5 % [facility] Eosinophils Abs 0.0 0.0 - 0.4 x10(3)/[facility] LABOR[facility]ORY Basophil % 0.4 % [facility] Baso Absolute 0.0 0.0 - 0.1 x10(3)/[facility] LABORATORY Immature Gran % 0.30 % [facility] Comment: Immature granulocytes(IG's)percentage and absolute count will include metamyelocytes, myelocytes, and promyelocytes. Blood smears from CBCs yielding IG's will be scanned manually for concordance. If this scan disagrees with the automated IG or if promyelocytes are noted, a manual differential will be performed. Immature Gran Absolute 0.03 0.00 - 0.04 x10(3)/[facility] LABORATORY Blood 11/07/2023 2:30 AM EST 11/07/2023 2:45 AM EST Narrative Resulting Agency Comment Spec In Lab Natalie TRIPP HEMATOLOGY ORDERABLE S [facility] [place] [place] [address] * (ABNORMAL) Hemogram (11/07/2023 2:30 AM EST) White Blood Cell 9.7(H) 4.0 - 9.5 x10(3)/[facility] LABORATORY Red Blood Cell 5.12 4.58 - 5.54 x10(6)/[facility] LABORATORY Hemoglobin 15.8 13.7 - 16.5 g/dL [facility] Hematocrit 46.4 40.5 - 48.5 % [facility] Mean Cell Volume 90.6 82.9 - 93.1 fL [facility] Mean Cell Hemoglobin 30.9 27.5 - 32.1 pg [facility] Mean Cell Hemoglobin Concentration 34.1 32.0 - 35.7 g/dL [facility] Platelet 154 145 - 357 x10(3)/mc L [facility] RDW Standard Deviation 42.4 36.0 - 45.0 fL [facility] RDW coefficient of variation 12.8 11.4 - 13.8 % [facility] Mean Platelet Volume 10.5 7.6 - 12.9 fL [facility] NRBC% auto 0.0 % [facility] NRBC Absolute 0.000 0.000 - 0.000 x10(3)/mc L [facility] Blood 11/07/2023 2:30 AM EST 11/07/2023 2:45 AM EST Narrative Resulting Agency Comment Spec In Lab Natalie TRIPP HEMATOLOGY ORDERABLE S Performing Organization Address City/[facility]/ZIP Co de Phone Number [facility] [place] [address] * Phosphorus (11/07/2023 2:30 AM EST) Phosphorus 2.9 2.5 - 4.5 mg/dL [facility] Blood 11/07/2023 2:30 AM EST 11/07/2023 2:45 AM EST Narrative Resulting Agency Comment Spec In Lab Barbie Long APRN CHEMISTRY ORDERABL ES Performing Organization Address City/[facility]/ZIP Co de Phone Number [facility] [place] [address] * Magnesium (11/07/2023 2:30 AM EST) Magnesium 0.94 0.69 - 1.07 mmol/L [facility] Blood 11/07/2023 2:30 AM EST 11/07/2023 2:45 AM EST Narrative Resulting Agency Comment Spec In Lab Barbie Long [employer] CHEMISTRY ORDERABL ES Performing Organization Address [facility] Co de Phone Number [facility] [place] [address] * (ABNORMAL) Basic Metabolic Panel (non-fasting) (11/07/2023 2:30 AM EST) Glucose 164 65 - 199 mg/dL [facility] Comment:Diabetes: >=200 mg/d L plus symptoms Blood Urea Nitrogen 19 10 - 20 mg/dL [facility] Creatinine 0.79(L) 0.80 - 1.50 mg/dL [facility] Sodium 138 135 - 145 mmol/L [facility] Potassium 3.9 3.5 - 5.0 mmol/L [facility] Comment: Please note: ??Patients with WBC >100,000 may have falsely elevated Potassium levels. ??For accurate Potassium quantification in these patients send serum separator tube (gold top) for subsequent determinations. ??Contact the Clinical Chemistry Laboratory if there are any questions. Chloride 102 98 - 107 mmol/L [facility] Carbon Dioxide 24 22 - 31 mmol/L [facility] Anion Gap 12 5 - 15 mmol/L [facility] Calcium 9.0 8.5 - 10.5 mg/dL [facility] Est Glomerular Filtration Rate 89 >=60 mL/min/1. 73 m?? [facility] Comment: This patient's estimated GFR [...] Agency Comment Spec In Lab Barbie Long [employer] CHEMISTRY ORDERABL ES Performing Organization Address City/[facility]/ZIP Co de Phone Number [facility] [place] [address] * MRI Brain wo Contrast (11/06/2023 10:08 [...] questions please contact the health patient care specialist that requested your imaging first. ? Narrative 11/07/2023 4:14 AM EST EXAMINATION: MRI BRAIN WO CONTRAST CLINICAL HISTORY: Stroke, follow up; L BURCE occlusion, aphasia TECHNIQUE: MRI of the brain [...] patients who have questions please contactthe health patient care specialist that requested your imaging first. Barbie Orr MD IM MRI ORDERABLES * (ABNORMAL) POCT Glucose (11/06/2023 8:58 PM EST) Glucose, POC 219(H) 65 - 199 mg/dL [facility] Comment: Supplemental ranges: <140 mg/dL before meals <180 mg/dL all other times of the day Blood 11/06/2023 8:58 PM EST 11/06/2023 8:58 PM EST Fernanda Pineda MD POINT OF CARE TEST O RDERAJERRY Performing Organization Address City/[facility]/ZIP Co de Phone Number [facility] [place] [address] * (ABNORMAL) POCT Glucose (11/06/2023 4:27 PM EST) Glucose, POC 229(H) 65 - 199 mg/dL [facility] Comment: Supplemental ranges: <140 mg/dL before meals <180 mg/dL all other times of the day Blood 11/06/2023 4:27 PM EST 11/06/2023 4:27 PM EST Fernanda Pineda MD POINT OF CARE TEST O RADHA Performing Organization Address City/[facility]/ZIP Co de Phone Number [facility] [place] [place] [address] * ECHO COMPLETE (11/06/2023 3:57 PM EST) EF 40 HEARTLAB SYSTEM Anatomical Region Laterality Modality Cardiac Other 11/06/2023 3:19 PM EST Narrative 11/06/2023 4:19 PM EST [address] [place] [address] ? Echocardiogram Report Name: KOKO ZAMORA ?Study Date: 11/06/2023 03:19 PMBP: 134/81 mmHg ? Patient Location: [facility] 0340 A : 1940 ? Height: 168 cm ? Account: [id number] Age: 83 yrs ? Weight: 73 kg Gender: Male ?BSA: 1.8 m2 Ordering Physician: FERNANDA PINEDA Referring Physician: UNKNOWN Performed By: Shahram Rojas RDCS Reason For Study: Cerebrovascular accident (CVA), unspecified mechanism Exam Location: [facility]. Interpretation Summary Mildly to moderately reduced left [...] for root and ascending on prior) Procedure Complete-[id number]. The rhythm is atrial fibrillation. Left Ventricle [...] Note Marcelino Padron MD - 11/06/2023 [address] [place] [address] Echocardiogram Report Name: KOKO ZAMORA Study Date: 303:19 PMBP: 134/81 mmHg Patient Location: [id number] A : 1940 Height: 168 cm Account: [id number] Age: 83 yrs Weight: 73 kg Gender: Male BSA: 1.8 m2 Ordering Physician: FERNANDA PINEDA Referring Physician: UNKNOWN Performed By: Shahram Rojas RDCS Reason For Study: Cerebrovascular accident (CVA), unspecified mechanism Exam Location: [facility]. Interpretation Summary Mildly to moderately reduced left ventricular systolic function. [id number]%. 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 The rhythm is atrial fibrillation. Left Ventricle [...] Glucose, POC 212(H) 65 - 199 mg/dL [facility] Comment: Supplemental ranges: <140 mg/dL before meals <180 mg/dL all other times of the day Blood 11/06/2023 2:55 PM EST 11/06/2023 2:55 PM EST Fernanda Pineda MD POINT OF CARE TEST O RDERABLES Performing Organization Address City/State/[facility] Co de Phone Number [facility] [place] [phone] * XR Knee 1-2 Views Right (Generic) [...] questions please contact the health patient care specialist that requested your imaging first. ? Electronically signed by: Shannen Sánchez MD, [facility] ([phone]), at 11/06/2023 11:57 AM Narrative 11/06/2023 11:57 [...] patients who have questions please contactthe health patient care specialist that requested your imaging first. Electronically signed by: Shannen Sánchez MD, [facility]([phone]), at 11/06/2023 11:57 AM Barbie Orr MD IMG DX ORDERABLES * [...] questions please contact the health patient care specialist that requested your imaging first. ? Electronically signed by: Shannen Sánchez MD, [facility] ([phone]), at 11/06/2023 12:00 PM Narrative 11/06/2023 12:00 [...] alignment. No effusion. Soft Tissue Chondrocalcinosis at RUST or atherosclerotic volar vascularcalcifications. IV catheter placed in antecubital fossa. IMPRESSION 1. No acute fracture. 2. Normal osseous alignment 3. No elbow effusion. Thank you for letting us participate in the care of this patient. If youare a health care provider and have any questions regarding this report,please contact the number below. For patients who have questions please contactthe health patient care specialist that requested your imaging first. Electronically signed by: Shannen Sánchez MD, [facility]([phone]), at 11/06/2023 12:00 PM Barbie Orr MD IMG DX ORDERABLES * [...] questions please contact the health patient care specialist that requested your imaging first. ? Electronically signed by: Shannen Sánchez MD, [facility] ([phone]), at 11/06/2023 12:00 PM Narrative 11/06/2023 12:00 [...] patients who have questions please contactthe health patient care specialist that requested your imaging first. Electronically signed by: Shannen Sánchez MD, [facility]([phone]), at 11/06/2023 12:00 PM Barbie Orr MD IMG DX ORDERABLES * [...] questions please contact the health patient care specialist that requested your imaging first. ? Electronically signed by: Shannen Sánchez MD, [facility] ([phone]), at 11/06/2023 12:02 PM Narrative 11/06/2023 12:02 [...] patients who have questions please contactthe health patient care specialist that requested your imaging first. Electronically signed by: Shannen Sánchez MD, [facility]([phone]), at 11/06/2023 12:02 PM Barbie Orr MD IMG DX ORDERABLES * [...] questions please contact the health patient care specialist that requested your imaging first. ? Electronically signed by: Edson Danielle DO, [facility] ??([phone]), at 11/06/2023 11:29 AM Narrative 11/06/2023 11:29 [...] patients who have questions please contactthe health patient care specialist that requested your imaging first. Electronically signed by: Edson Danielle DO [facility]([phone]), at 11/06/2023 11:29 AM Felix Gonzalez MD IMG CT ORDERABLES * [...] questions please contact the health patient care specialist that requested your imaging first. ? Electronically signed by: Edson Danielle DO [facility] ??([phone]), at 11/06/2023 11:29 AM Narrative 11/06/2023 11:29 [...] patients who have questions please contactthe health patient care specialist that requested your imaging first. Electronically signed by: Edson Danielle DO, [facility]([phone]), at 11/06/2023 11:29 AM Felix Gonzalez MD IMG CT ORDERABLES * [...] questions please contact the health patient care specialist that requested your imaging first. ? Electronically signed by: Matt Edwards MD, [facility] ([phone]), at 11/06/2023 11:01 AM Narrative 11/06/2023 11:01 AM EST EXAMINATION: CT [...] patients who have questions please contactthe health patient care specialist that requested your imaging first. Felix Gonzalez [...] questions please contact the health patient care specialist that requested your imaging first. ? Electronically signed by: Edson Danielle DO, [facility] ??([phone]), at 11/06/2023 11:29 AM Narrative 11/06/2023 11:29 [...] patients who have questions please contactthe health patient care specialist that requested your imaging first. Electronically signed by: Edson Danielle DO, [facility]([phone]), at 11/06/2023 11:29 AM Felix Gonzalez MD IMG CT ORDERABLES * [...] questions please contact the health patient care specialist that requested your imaging first. ? Narrative 11/06/2023 11:19 AM EST EXAMINATION: CT HEAD WO & MULTIPHASE CTA HEAD/NECK (THROMBECTOMY PROTOCOL) CLINICAL HISTORY: aphasia, RUE and RLE weakness TECHNIQUE: CT of head without intravenous contrast. Multiphase CTA of the carotids and [place] is performed after the administration [...] intravenous contrast. Multiphase CTA of the carotidsand [place] is performed after the administration [...] patients who have questions please contactthe health patient care specialist that requested your imaging first. Barbie Orr MD IMG CT ORDERABLES * EKG 12 Lead (11/06/2023 10:34 AM EST) Pathologist [facility] Ventricular rate 99 BPM MUSE SYSTEM QRS Duration 112 ms MUSE SYSTEM Q-T Interval 388 ms MUSE SYSTEM QTC Calculated (Bezet) 497 ms MUSE SYSTEM Calculated R [place] -55 degrees MUSE SYSTEM Calculated T [place] 73 degrees MUSE SYSTEM INTERPRETATION Atrial fibrillation [...] 2 VENOUS (11/06/2023 10:11 AM EST) Pathologist [facility] pH, Venous 7.36 7.32 - 7.42 [facility] PCO2, Venous 52(H) 41 - 51 mmHg [facility] PO2, Venous 23(L) 25 - 40 mmHg [facility] Bicarbonate, Venous 28.4 mmol/L [facility] Base Excess, Venous 3.0 mmol/L [facility] Hgb Blood Gas 16.5 13.7 - 16.5 g/dL [facility] Oxyhemoglobin, Venous 42.9 % [facility] Carboxyhemoglob in, Venous 1.5 % [facility] Comment: Nonsmokers: 0.5-1.5% COHB Smokers: Variable, but usually less than 10% Toxic: 20-30% COHB Lethal: Greater than 60% COHB Methemoglobin, Venous 0.3 <=1.5 % [facility] Na Whole Blood 142 135 - 145 mmol/L [facility] K Whole Blood 4.7 3.5 - 5.0 mmol/L [facility] Comment: Please note: Patients with WBC >100,000 may have falsely elevated Potassium levels. Contact the Clinical Chemistry Laboratory if there are any questions. ICa Whole Blood 1.18 1.15 - 1.33 mmol/L [facility] Comment: Note: ??Total bilirubin higher than 20 mg/dL may lead to falsely low ionized calcium. CL Whole Blood 103 98 - 107 mmol/L [facility] Gluc Whole Bld 238(H) 65 - 199 mg/dL [facility] Comment:Diabetes: >=200 mg/d L plus symptoms Lactate WB 1.6 0.5 - 2.2 mmol/L [facility] Blood Gas Source Venous [facility] Blood 11/06/2023 10:1 1 AM EST 11/06/2023 10:11 AM EST Barbie Orr MD POINT OF CARE TEST O RDERABLES [facility] [place] [address] * XR Chest AP and Pelvis AP [...] questions please contact the health patient care specialist that requested your imaging first. ? Electronically signed by: Robyn Najera MD, [facility] ([phone]), at 11/06/2023 11:47 AM Narrative 11/06/2023 11:47 AM EST EXAMINATION: XR [...] patients who have questions please contactthe health patient care specialist that requested your imaging first. Electronically signed by: Robyn Najera MD, [facility] ([phone]), at 11/06/2023 11:47 AM Felix Gonzalez MD IMG DX ORDERABLES * Phosphorus (11/06/2023 10:07 AM EST) [facility] Phosphorus 2.7 2.5 - 4.5 mg/dL [facility] Blood Venous Draw / Unknown 11/06/2023 10:07 AM EST 11/06/2023 10:25 AM EST Narrative Resulting Agency Comment Spec In Lab Natalie TRIPP CHEMISTRY ORDERABLES [facility] [place] [address] * Magnesium (11/06/2023 10:07 AM EST) [facility] Magnesium 0.90 0.69 - 1.07 mmol/L [facility] Blood Venous Draw / Unknown 11/06/2023 10:07 AM EST 11/06/2023 10:25 AM EST Narrative Resulting Agency Comment Spec In Lab Natalie TRIPP CHEMISTRY ORDERABLES [facility] [place] [address] * LDL Cholesterol, Direct (11/06/2023 10:07 AM EST) LDL Cholesterol, Direct 112 mg/dL [facility] Comment: Lowest Risk: <100 mg/dL Lower Risk: 100-129 mg/dL Borderline High Risk: 130-159 mg/dL High Risk: 160-189 mg/dL Very High Risk: >eb=631 mg/dL Blood Venous Draw / Unknown 11/06/2023 10:07 AM EST 11/06/2023 10:25 AM EST Narrative Resulting Agency Comment Spec In Lab Natalie TRIPP CHEMISTRY ORDERABLES [facility] [place] [address] * HDL/Cholesterol Profile (11/06/2023 10:07 AM EST) Cholesterol, Total 192 mg/dL [facility] Comment: Lower Risk: <200 mg/dL Average Risk: 200-239 mg/dL Higher Risk: >rx=278 mg/dL HDL Cholesterol 61 mg/dL [facility] Comment: Males: ?? Higher Risk: <40 mg/dL Females: ?? Higher Risk: <50 mg/dL Cholesterol/HDL Ratio 3.1 ratio [facility] Chol/HDL Interpretation See Note [facility] Comment: Lipid management should be guided by a patient? s ASCVD risk, goals and preferences. ACC/AHA Guidelines recommend high intensity statin if clinical ASCVD or LDL greater than or equal to 190 mg/dL. http://Tower59url.com/MBC-PFD-Abpsujnqy Measure LDL if Total Cholesterol minus HDL Cholesterol is greater than 220 mg/dL. Adults aged 40-75 with LDL 70-189 mg/dL should have their 10 year ASCVD risk estimated with the ACC/AHA ASCVD risk early childhood specialist http://tools.acc.org/TOHTV-Xlea-Aewdzxwwc/ Statin should be discussed if risk greater [...] Spec In Lab Natalie TRIPP CHEMISTRY ORDERABLES [facility] [place] [address] * (ABNORMAL) Hemoglobin A1c (11/06/2023 10:07 AM EST) Hemoglobin A1c 7.7(H) 4.3 - 5.6 % [facility] Comment: Reference Range: 4.3 - [...] Mellitus, Diabetes Care 2013; 36: Suppl. 1, S68-64 Estimated Average Glucose See note mg/dL [facility] Comment: Estimated Average Glucose not [...] into estimated average glucose values. ??Diabetes Care 2008:31(8):8114-5347. Additional resources are available on the ADA website (diabetes.org). Blood Venous Draw / Unknown 11/06/2023 10:07 AM EST 11/06/2023 11:03 AM EST Narrative Resulting Agency Comment Spec In Lab Natalie TRIPP CHEMISTRY ORDERABLES Performing Organization Address [facility] Co de Phone Number [facility] [place] [address] * ABORH Recheck Status (11/06/2023 10:07 AM EST) ABORH Type Recheck Completed [facility] Blood 11/06/2023 10:0 7 AM EST 11/06/2023 10:13 AM EST Narrative Resulting Agency Comment Spec In Lab Felix Gonzalez MD BLOOD BANK LAB ORDER NICK Performing Organization Address [facility] [place] [address] * Gold Tube HOLD (11/06/2023 10:07 AM EST) Pathologist [facility] Gold Hold Sample in lab. [facility] Blood Venous Draw / Unknown 11/06/2023 10:07 AM EST 11/06/2023 10:28 AM EST Felix Gonzalez MD CHEMISTRY ORDERABLES Performing Organization Address [facility] de Phone Number [facility] [place] [address] * (ABNORMAL) Differential, Automated (11/06/2023 10:07 AM EST) Neutrophil % 64.9 % [facility] Neutrophil Absolute 6.25(H) 1.70 - 6.10 x10(3)/mc L [facility] Lymph % 24.2 % [facility] Lymphocytes Abs 2.3 0.9 - 3.2 x10(3)/mc L [facility] Monocyte % 9.2 % [facility] Monocyte Abs 0.9 0.3 - 0.9 x10(3)/mc L [facility] Eos % 0.6 % [facility] Eosinophils Abs 0.1 0.0 - 0.4 x10(3)/mc L [facility] Basophil % 0.6 % [facility] Baso Absolute 0.1 0.0 - 0.1 x10(3)/mc L [facility] Immature Gran % 0.50 % [facility] Comment: Immature granulocytes(IG's)percentage and absolute count will include metamyelocytes, myelocytes, and promyelocytes. Blood smears from CBCs yielding IG's will be scanned manually for concordance. If this scan disagrees with the automated IG or if promyelocytes are noted, a manual differential will be performed. Immature Gran Absolute 0.05(H) 0.00 - 0.04 x10(3)/ L [facility] Blood 11/06/2023 10:0 7 AM EST 11/06/2023 10:25 AM EST Narrative Resulting Agency Comment Spec In Lab Felix Gonzalez MD HEMATOLOGY ORDERABLE S [facility] [place] [address] * (ABNORMAL) Hemogram (11/06/2023 10:07 AM EST) White Blood Cell 9.6(H) 4.0 - 9.5 x10(3)/mc L [facility] Red Blood Cell 5.15 4.58 - 5.54 x10(6)/mc L [facility] Hemoglobin 16.2 13.7 - 16.5 g/dL [facility] Hematocrit 47.2 40.5 - 48.5 % [facility] Mean Cell Volume 91.7 82.9 - 93.1 fL [facility] Mean Cell Hemoglobin 31.5 27.5 - 32.1 pg [facility] Mean Cell Hemoglobin Concentration 34.3 32.0 - 35.7 g/dL [facility] Platelet 154 145 - 357 x10(3)/ L [facility] RDW Standard Deviation 43.3 36.0 - 45.0 fL [facility] RDW coefficient of variation 12.9 11.4 - 13.8 % [facility] Mean Platelet Volume 10.6 7.6 - 12.9 fL [facility] NRBC% auto 0.0 % [facility] NRBC Absolute 0.000 0.000 - 0.000 x10(3)/mc L [facility] Blood 11/06/2023 10:0 7 AM EST 11/06/2023 10:25 AM EST Narrative Resulting Agency Comment Spec In Lab Felix Gonzalez MD HEMATOLOGY ORDERABLE S [facility] [place] [place] [address] * Type and screen ([facility]/MYLES[place] (11/06/2023 10:07 AM EST) ABORH Type O POSITIVE [facility] Patient BB History Found [facility] Expires at [id number] on: 11-09-2023 [facility] Ab Screen Interp Negative [facility] Blood 11/06/2023 10:0 7 AM EST 11/06/2023 10:07 AM EST Narrative [facility] - 11/06/2023 10:07 AM EST This Type and Screen result is only valid at the [facility] Resulting Agency Comment Spec In Lab Felix Gonzalez MD BLOOD BANK LAB ORDER NICK Performing Organization Address [facility] Co de Phone Number [facility] [place] [address] * Ethanol Level (11/06/2023 10:07 AM EST) Ethanol <100 <=99 mg/L [facility] Comment: Greater than 800 mg/L (0.08%) should be considered intoxicated. 3400 to 4500 mg/L (0.34 - 0.45%) is considered severe intoxication. Greater than 5500 mg/L (0.55%) is usually fatal. Blood 11/06/2023 10:0 7 AM EST 11/06/2023 10:25 AM EST Narrative Resulting Agency Comment Spec In Lab Felix Gonzalez MD CHEMISTRY ORDERABLES Performing Organization Address City/[facility]/ZIP Co de Phone Number [facility] [place] [address] * APTT (11/06/2023 10:07 AM EST) Partial Thromboplastin Time 28 25 - 37 sec [facility] Comment: The PTT is NOT appropriate for heparin monitoring. Use the Anti-Xa level for heparin monitoring (HEP UFH) or LMWH monitoring (HEP LMW). A PTT less than 37 seconds generally indicates adequate hemostasis. Blood 11/06/2023 10:0 7 AM EST 11/06/2023 10:25 AM EST Narrative Resulting Agency Comment Spec In Lab Felix Gonzalez MD HEMATOLOGY ORDERABLE S Performing Organization Address [facility] Co de Phone Number [facility] [place] [address] * Prothrombin Time (11/06/2023 10:07 AM EST) Prothrombin Time 10.9 9.4 - 12.5 sec [facility] International Normalization Ratio 1.0 [facility] Comment: An INR <2.0 indicates [...] MD HEMATOLOGY ORDERABLE S Performing Organization Address City/[facility]/ZIP Co de Phone Number [facility] [place] [address] * (ABNORMAL) Basic Metabolic Panel (non-fasting) (11/06/2023 10:07 AM EST) Glucose 248(H) 65 - 199 mg/dL [facility] Comment:Diabetes: >=200 mg/d L plus symptoms Blood Urea Nitrogen 24(H) 10 - 20 mg/dL [facility] Creatinine 0.87 0.80 - 1.50 mg/dL [facility] Sodium 142 135 - 145 mmol/L [facility] Potassium 4.7 3.5 - 5.0 mmol/L [facility] Comment: Please note: ??Patients with WBC >100,000 may have falsely elevated Potassium levels. ??For accurate Potassium quantification in these patients send serum separator tube (gold top) for subsequent determinations. ??Contact the Clinical Chemistry Laboratory if there are any questions. Chloride 105 98 - 107 mmol/L [facility] Carbon Dioxide 26 22 - 31 mmol/L [facility] Anion Gap 11 5 - 15 mmol/L [facility] Calcium 9.1 8.5 - 10.5 mg/dL [facility] Est Glomerular Filtration Rate 87 >=60 mL/min/1. 73 m?? [facility] Comment: This patient's estimated GFR [...] Gonzalez MD CHEMISTRY ORDERABLES Performing Organization Address City/State/[facility] Co de Phone Number [facility] [place] [address] * Rapid Drug Screen w/o Confirmation, Urine (11/06/2023 10:04 AM EST) Barbiturates Screen, Urine None Detected None Detected [facility] Comment: The barbiturate screen detects [...] Benzodiazepines Screen, Urine None Detected None Detected [facility] Comment: The benzodiazepines screen detects [...] Cocaine Screen, Urine None Detected None Detected [facility] Comment: The cocaine metabolites screen detects benzoylecgonine (Cocaine Metabolite) at concentrations >150 ng/mL. A ? Presumptive Positive? result indicates that the screening result was positive but has not yet been confirmed by a highly-specific method. As with any screen, occasional false positive results from cross-reacting substances may occur. Not for Medico-Legal Purposes. Methadone Metabolites Screen, Urine None Detected None Detected [facility] Comment: The methadone metabolite screen detects EDDP (major methadone metabolite) at concentrations >100 ng/mL. A ? Presumptive Positive? result indicates that the screening result was positive but has not yet been confirmed by a highly-specific method. As with any screen, occasional false positive results from cross-reacting substances may occur. Not for Medico-Legal Purposes. Opiate Screen, Urine None Detected None Detected [facility] Comment: The opiates screen detects [...] Cannabinoid Screen, Urine None Detected None Detected [facility] Comment: The marijuana metabolites screen detects the THC metabolite (04-azk-4-carboxy-delta 9-THC) at concentrations >20 ng/mL. A ? Presumptive Positive? result indicates that the screening result was positive but has not yet been confirmed by a highly-specific method. As with any screen, occasional false positive results from cross-reacting substances may occur. Not for Medico-Legal Purposes. Oxycodone Screen, Urine None Detected None Detected [facility] Comment: The oxycodone screen detects oxycodone and oxymorphone at concentrations >100 ng/mL. A ? Presumptive Positive? result indicates that the screening result was positive but has not yet been confirmed by a highly-specific method. As with any screen, occasional false positive results from cross-reacting substances may occur. Not for Medico-Legal Purposes. Buprenorphine Screen, Urine None Detected None Detected [facility] Comment: The buprenorphine screen detects [...] characteristics of this test were determined by [facility] in accordance with CLIA requirements. This laboratory is qualified under CLIA to perform high-complexity testing. Fentanyl Screen, Urine None Detected None Detected [facility] Comment: The fentanyl screen detects [...] characteristics of this test were determined by [facility] in accordance with CLIA requirements. This laboratory is qualified under CLIA to perform high-complexity testing. Tricyclics Screen, Urine None Detected None Detected [facility] Comment: The tricyclics screen detects [...] characteristics of this test were determined by [facility] in accordance with CLIA requirements. This laboratory is qualified under CLIA to perform high-complexity testing. Ethanol Screen, Urine None Detected None Detected [facility] Comment:This urine ethanol a ssay detects ethanol at concentrations >/= 100 mg/L. Amphetamines Screen, Urine None Detected None Detected [facility] Comment: The amphetamine screen detects d-amphetamine and d-methamphetamine at concentrations >300 ng/mL. A ? Presumptive Positive? result indicates that the screening result was positive but has not yet been confirmed by a highly-specific method. As with any screen, occasional false positive results from cross-reacting substances may occur. Not for Medico-Legal Purposes. Creatinine Specimen Validity Test, Urine 48 >=20 mg/dL [facility] Chromate Specimen Validity Test, Urine <2.0 <=49.9 mg/L [facility] Nitrite Specimen Validity Test, Urine <50 <=499 mg/L [facility] Oxidant Specimen Validity Test, Urine 11 <=199 mg/L [facility] pH Specimen Validity Test, Urine 6.2 3.0 - 10.9 [facility] Adulterants Screen, Urine None Detected None Detected [facility] Comment:No adulteration of t his urine sample was detected. Urine 11/06/2023 10:0 4 AM EST 11/06/2023 11:16 AM EST Narrative Resulting Agency Comment Spec In Lab Felix Gonzalez MD CHEMISTRY ORDERABLES Performing Organization Address [facility] Co de Phone Number [facility] [place] [address] * Rapid Drug Screen, Urine (KILO Request) (11/06/2023 10:04 AM EST) KILO Conf Requested No [facility] KILO Requested See Comment [facility] Comment:Refer to Rapid Drug Screen w/o Confirmation, Urine for results. Urine 11/06/2023 10:0 4 AM EST 11/06/2023 11:16 AM EST Narrative Resulting Agency Comment Spec In Lab Feilx Gonzalez MD URINE ORDERABLES Performing Organization Address [facility] Co de Phone Number [facility] [place] [address] * Urinalysis Microscopic Exam (11/06/2023 10:03 AM EST) RBC, Urine 0 0 - 3 /HPF [facility] WBC, Urine 1 0 - 3 /HPF [facility] Squamous Epithelial Cells Raw Data, Urine 1 <=4 /HPF [facility] Hyaline Casts, Urine 1 0 - 2 /LPF [facility] Clean Catch Urine 11/06/2023 10:03 AM EST 11/06/2023 11:16 AM EST Narrative Resulting Agency Comment Spec In Lab Felix Gonzalez MD URINE ORDERABLES [facility] [place] [address] * (ABNORMAL) Urinalysis with reflex Culture (11/06/2023 10:03 AM EST) Glucose, Urine Dipstick 100(A) Negative mg/dL [facility] Protein, Urine Dipstick Trace(A) Negative mg/dL [facility] Bilirubin, Urine Dipstick Negative Negative mg/dL [facility] Comment: Clinical correlation required for positive Urine Bilirubin results as false positive may occur with some drugs and drug related products. If a false positive is suspected a serum total bilirubin should be considered if clinically indicated. Urobilinogen, Urine Dipstick Normal Normal mg/dL [facility] pH, Urn (dipstick) 6.5 5.0 - 8.0 [facility] Blood, Urine Dipstick Negative Negative mg/dL [facility] Ketone, Urine Dipstick Negative Negative mg/dL [facility] Nitrite, Urine Dipstick Negative Negative [facility] Leukocytes, Urine Dipstick Negative Negative mcL [facility] Appearance, Urine Dipstick Clear Clear [facility] Specific [place] Urine Automated >=1.030(A) 1.005 - 1.030 [facility] Color, Urine Dipstick Yellow Yellow [facility] Reflex to Culture No [facility] Clean Catch Urine 11/06/2023 10:03 AM EST 11/06/2023 11:16 AM EST Narrative Resulting Agency Comment Spec In Lab Felix Gonzalez MD URINE ORDERABLES [facility] [place] [address] * (ABNORMAL) POCT Glucose (11/06/2023 9:59 AM EST) Glucose, POC 221(H) 65 - 199 mg/dL [facility] Comment: Supplemental ranges: <140 mg/dL before meals <180 mg/dL all other times of the day Blood 11/06/2023 9:59 AM EST 11/06/2023 9:59 AM EST Barbie Orr MD POINT OF CARE TEST O RDERABLES [facility] [place] [address] documented in this encounter Visit Diagnoses Diagnosis [...] after 3 consecutive doses of labetaloL, call Senior Piping Designer. May be given with niCARdipine and enalaprilat., [...] parameters not met)1208 (Given - Provider: Edson Carrion RN)1720 (Given - Provider: Edson Carrion, RN) [...] Armando Pelayo RN) 914 (Given - Provider: Edson Carrion, DION)2030 (Given [...] after 3 consecutive doses of labetaloL, call Senior Piping Designer. May be given with niCARdipine and enalaprilat., [...] Routine documented in this encounter Care Teams Mixer Pigment Relationship Specialty Start Date End Date Bobby Das MD [address] [place] [address] [place] [address] PCP - General 10/02/10 documented as of this encounter
--- OUTSIDE RECORDS SUMMARY | 2024-09-30 12:07 | XMS_ITS | Encounter Summary ---
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 Ifrah Tellez MD [address] [place] [id number] [place] [address] [address] [place] [phone] Referral ID Status Reason Start Date Expiration Date V isits Requested Visits Authorized [id number] Closed Consult, Test & Treat PCP Updated and/or Approved 10/06/2023 04/03/2024 6 6 Encounter Details Date Type Department Care Team (Late st Contact Info) Description 10/22/2023 2:20 PM EST Office Visit Cardiology at [address] [address] Christian Figueroa MD [facility] [place] [address] Permanent atrial fibrillation Social History Tobacco Use [...] Cardioversion: No Anti-Arrhythmics: No Sleep Apnea: No [id number] (CHF 1, Age 2, Vasc 1, [...] PLATELET 180 12/12/2022 Social History High School: [employer]: 4 years 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 jewelry maker Pager 2020 documented in this encounter Plan of Treatment Scheduled Referrals Name Type Priority Associated Diagnoses Orde r Schedule Referral to Cardiology Outpatient Referral Routine Routine general medical examination at a health care facility Ordered: 10/10/2023 documented as of this encounter Visit Diagnoses Diagnosis Permanent atrial fibrillation Atrial fibrillation documented in this encounter Care Teams Manager Oracle Database Relationship Specialty Start Date End Date Bobby Das MD [address] [place] [address] [place] [address] PCP - General 10/02/10 documented as of this encounter
--- OUTSIDE RECORDS SUMMARY | 2024-09-30 12:07 | XMS_ITS | Encounter Summary ---
Author Organization [facility] [place] [address] Care Team Providers Care Superannuation Clerk Name Role Phone Bobby Das MD Primary Care Provider [phone] Encounter Details Date Type Department Care Team (Late st Contact Info) Description 10/27/2023 Telephone [place] [phone] Faby Hirsch Social History Tobacco Use Types [...] on filedocumented in this encounter Care Teams Superannuation Clerk Relationship Specialty Start Date End Date Bobby Das MD [address] [place] [address] [place] [phone] PCP - General 10/02/10 documented as of this encounter
[2024-09-30 12:08] LABS: COVID-19 PCR Negative (Negative); Influenza A PCR Negative (Negative); Influenza B PCR Negative (Negative); RSV PCR Negative (Negative)
--- OUTSIDE RECORDS SUMMARY | 2024-09-30 12:08 | XMS_ITS | Encounter Summary ---
Author Organization [facility] Address [facility] [place] [address] Care Team Providers Care Bank Teller Machine Mechanic Name Role Phone Bobby Das MD Primary Care Provider [phone] Encounter Details Date Type Department Care Team (Latest Contact Info) Description 10/02/2022 7:45 AM EST Clinical Support Dermatology at [address] [address] Jace Lynn MD [facility] [address] [place] [address] Basal cell carcinoma (BCC) of eyebrow Social [...] eyebrow documented in this encounter Care Teams Bank Teller Machine Mechanic Relationship Specialty Start Date End Date Bobby Das MD [address] [place] [address] [place] [phone] PCP - General 10/02/10 documented as of this encounter
--- OUTSIDE RECORDS SUMMARY | 2024-09-30 12:08 | XMS_ITS | Encounter Summary ---
Author Organization [facility] Address [facility] [place] [address] Care Team Providers Care Combined Rail Operator Name Role Phone Bobby Das MD Primary Care Provider [phone] Encounter Details Date Type Department Care Team (Latest Contact Info) Description 10/02/2022 8:00 AM EST Procedure visit Dermatology at [address] [phone] Jace Lynn MD [facility] [address] Basal cell carcinoma (BCC) of eyebrow Social [...] MD PHD Your wound(s) was repaired by [id number] stitches called a primary repair. Instructions are [...] pounds until your sutures are removed. Some tablet technician may need to be delayed or [...] as often as is recommended by your seals engraver, for new skin cancers. This is once [...] it. If after hours, please call the braider operator or [phone] and ask for the seals engraver on-call. If you have any non-urgent questions or concerns, please feel free to call my office or contact me through our patient portal, [employer], at [email or web address] How to contact us during business hours Dermatology at [facility] [address]: Mohs scheduling or Mohs follow-up appointments: [phone] documented in this encounter Progress Notes * Jace Lynn MD - 10/02/2022 8:00 AM EST Images from the original note were not included. Summary of Procedure(s): Site # 1 : Left Lateral Eyebrow Tumor Type: Basal Cell Carcinoma,nodular Stages to clear tumor: One Stage Repair: Mellette Transposition Images: Site #2 :Right Nasal Ala [...] and follow up with his or her seals engraver or other skin provider. 5. Discussed avoiding [...] Surgeon and Pathologist: Jace Lynn MD PhD Nursing/Piping Designer(s): Gabriel Bourne LPN [facility], Lug Breaker And Wire Puller (s): Lissette Egan Pre-operative diagnosis: Basal Cell [...] The site was confirmed with the patient/authorized traveling representative/referring physician and/or a photograph form time [...] Zamora Staff Surgeon: Jace Lynn MD PhD Front End Driver(s): same as above residential real estate assistant: Date: 10/02/2022 Clinical Diagnosis: skin and soft tissue defect status post Mohs micrographic surgery Location/Site: Right Lateral Eyebrow Indication: repair of wound with zoroastrianism of anatomy/function Defect size to be repaired:2.0 x 1.5cm Procedure: Mellette Transposition flap repair Final flap size: 3.0 [...] Surgery and Dermatologic Oncology Department of Dermatology [address] [place] [address] Mohs micrographic Surgery Operative Report Site # 2 Patient name: Koko Zamora : 1940 Date: 10/02/2022 Staff Surgeon and Pathologist: Jace Lynn MD PhD Nursing/Piping Designer(s): Gabriel Bourne LPN [facility] Lug Breaker And Wire Puller (s): Lissette Egan Pre-operative diagnosis: Basal Cell [...] The site was confirmed with the patient/authorized traveling representative/referring physician and/or a photograph form time [...] site: Right Lateral Eyebrow INDICATION: repair and zoroastrianism of anatomy/function PROCEDURE: Full-thickness skin graft A [...] Surgery and Dermatologic Oncology Department of Dermatology [address] [place] [address] documented in this encounter Plan of Treatment Not on file documented as of this encounter Visit Diagnoses Diagnosis Basal cell carcinoma (BCC) of eyebrow documented in this encounter Care Teams Combined Rail Operator Relationship Specialty Start Date End Date Bobby Das MD [address] [place] [address] [place] [phone] PCP - General 10/02/10 documented as of this encounter
--- OUTSIDE RECORDS SUMMARY | 2024-09-30 12:08 | XMS_ITS | Encounter Summary ---
Author Organization [facility] [place] [address] Care Team Providers Care Fast Food Server Name Role Phone Bobby Das MD Primary Care Provider [phone] Encounter Details Date Type Department Care Team [...] on filedocumented in this encounter Care Teams Fast Food Server Relationship Specialty Start Date End Date Bobby Das MD [address] [place] [address] [place] [phone] PCP - General 10/02/10 documented as of this encounter
--- OUTSIDE RECORDS SUMMARY | 2024-09-30 12:08 | XMS_ITS | Encounter Summary ---
Author Organization [facility] [place] [address] Care Team Providers Care Derrick Boat Runner Name Role Phone Bobby Das MD Primary Care Provider [phone] Reason for Referral * Diagnostic Test (Routine) - Closed Specialty Diagnoses / Procedures Referred By Contac t Referred To Contact Cardiology Diagnoses HFrEF (heart failure with reduced ejection fraction) Procedures Echocardiogram Transthoracic Bel Blanco MD [facility] [place] [address] [facility] [place] [address] Referral ID Status Reason Start Date Expiration Date V isits Requested Visits Authorized [id number] Closed Specialty Service Requested 06/13/2022 06/13/2023 1 1 Reason for Visit * Diagnostic Test (Routine) - Closed Specialty Diagnoses / Procedures Referred By Contac t Referred To Contact Cardiology Diagnoses HFrEF (heart failure with reduced ejection fraction) Procedures Echocardiogram Transthoracic Bel Blanco MD [facility] [place] [address] [facility] [place] [address] Referral ID Status Reason Start Date Expiration Date V isits Requested Visits Authorized [id number] Closed Specialty Service Requested 06/13/2022 06/13/2023 1 1 Encounter Details Date Type Department Care Team (Latest Contact Info) Description 09/05/2022 11:56 AM EDT - 09/05/2022 11:59 PM EDT Hospital Encounter Non-[place] [phone] Bel Blanco MD [facility] [place] [address] HFrEF (heart failure with reduced ejection fraction) [...] End Date fluticasone propionate (FLONASE) 50 mcg/actuation [place], Suspension 1 spray by Each Nare route [...] * ECHO COMPLETE (09/05/2022 1:25 PM EDT) [facility] Signature EF 30 HEARTLAB SYSTEM Anatomical Region Laterality Modality Cardiac Other 09/05/2022 12:0 3 PM EDT Narrative 09/05/2022 2:11 PM EDT ? Echocardiogram Report Name: ETTA BAH ?Study Date: 09/05/2022 12:03 PMBP: 111/59 mmHg ? Patient Location: [id number] : 1940 ? Height: 173 cm ? Account: [id number] Age: 81 yrs ? Weight: 76 kg Gender: Male ?BSA: 1.9 m2 Ordering Physician: BEL BLANCO Referring Physician: BEL BLANCO Performed By: Salud Estrada Reason For Study: HFrEF Exam Location: [facility]. Interpretation Summary Technically limited imaging. Left ventricular [...] performed 05/16/22, findings are overall similar. Procedure Complete-[id number]. Satisfactory quality. Irregular rhythm. Left Ventricle Left [...] Date: :03 PMBP: 111/59 mmHg Patient Location: [id number] : 1940 Height: 173 cm Account: [id number] Age: 81 yrs Weight: 76 kg Gender: Male BSA: 1.9 m2 Ordering Physician: BEL BLANCO Referring Physician: BEL BLANCO Performed By: Salud Estrada Reason For Study: HFrEF Exam Location: [facility]. Interpretation Summary Technically limited imaging. Left ventricular [...] TTE performed 05/16/22,findings are overall similar. Procedure Complete-[id number]. Satisfactory quality. Irregular rhythm. Left Ventricle Left [...] fraction) documented in this encounter Care Teams Derrick Boat Runner Relationship Specialty Start Date End Date Bobby Das MD [address] [place] [address] [place] [address] PCP - General 10/02/10 documented as of this encounter
--- OUTSIDE RECORDS SUMMARY | 2024-09-30 12:08 | XMS_ITS | Encounter Summary ---
Author Organization [facility] [address] Care Team Providers Care Blade Changer Name Role Phone Bobby Das MD Primary Care Provider [phone] Encounter Details Date Type Department Care Team (Late st Contact Info) Description 09/23/2022 Telephone Dermatology at [facility] [address] [place] [phone] Savanah Hubbard CMA Social History Tobacco Use [...] on filedocumented in this encounter Care Teams Blade Changer Relationship Specialty Start Date End Date Bobby Das MD [address] [place] [address] [place] [phone] PCP - General 10/02/10 documented as of this encounter
--- OUTSIDE RECORDS SUMMARY | 2024-09-30 12:08 | XMS_ITS | Encounter Summary ---
Author Organization [facility] Address [facility] [place] [address] Care Team Providers Care Door Hanger Name Role Phone Bobby Das MD Primary Care Provider [phone] Encounter Details Date Type Department Care Team (Late st Contact Info) Description 12/08/2022 Telephone [place] [address] Isi Celaya MD [facility] [place] [address] Social History Tobacco Use Types Packs/Day Years [...] not included. DIVISION OF GASTROENTEROLOGY & HEPATOLOGY [facility] CALL Name: Koko Zamora Date: 12/08/2022 Time: [...] distal process in lower GI tract. [facility] is uncomfortable with proceeding with scope given [...] on filedocumented in this encounter Care Teams Door Hanger Relationship Specialty Start Date End Date Bobby Das MD [address] [place] [address] [place] [phone] PCP - General 10/02/10 documented as of this encounter
--- OUTSIDE RECORDS SUMMARY | 2024-09-30 12:08 | XMS_ITS | Encounter Summary ---
Author Organization [facility] [place] [address] Care Team Providers Care Asphalt Mixer Name Role Phone Bobby Das MD Primary Care Provider [phone] Encounter Details Date Type Department Care Team [...] filedocumented in this encounter Care Teams Asphalt Mixer Relationship Specialty Start Date End Date Bobby Das MD [address] [place] [address] [place] [address] PCP - General 10/02/10 documented as of this encounter
--- OUTSIDE RECORDS SUMMARY | 2024-09-30 12:08 | XMS_ITS | Encounter Summary ---
Author Organization [facility] Address [facility] [place] [address] Care Team Providers Care Hand Cutter Name Role Phone Bobby Das MD Primary Care Provider [phone] Reason for Visit * Reason Comments Medication Refill Encounter Details Date Type Department Care Team (Late st Contact Info) Description 05/30/2023 Refill [place] [address] Nasrin Parra PA [facility] [place] [address] Social History Tobacco Use Types Packs/Day Years [...] filedocumented in this encounter Care Teams Hand Cutter Relationship Specialty Start Date End Date Bobby Das MD [address] [place] [address] [place] [phone] PCP - General 10/02/10 documented as of this encounter
--- OUTSIDE RECORDS SUMMARY | 2024-09-30 12:08 | XMS_ITS | Encounter Summary ---
Author Organization [facility] Address [facility] [place] [address] Care Team Providers Care Mechanical Development Engineer Name Role Phone Bobby Das MD Primary Care Provider [phone] Encounter Details Date Type Department Care Team (Late st Contact Info) Description 10/02/2022 Notes Only Dermatology at [facility] [address] [place] [address] Abdirashid Jiang MD [facility] [place] [address] Social History Tobacco Use Types Packs/Day Years [...] - 10/02/2022 7:37 PM EST Patient paged in school suspension coordinator line regarding bleeding from wound site. On Eliquis and Plavix. Had tried 30 minutes of constant forceful pressure over wound. Dr. Mendenhall made aware. Dr. Mendenhall called Koko himself, patient lives nearly 1.5 hours from clinic and unable to drive in the dark, Dr. Mendenhall recommended he be evaluated at [facility]. He made ED aware of his arrival. documented in this encounter Plan of Treatment Not on file documented as of this encounter Visit Diagnoses Not on filedocumented in this encounter Care Teams Mechanical Development Engineer Relationship Specialty Start Date End Date Bobby Das MD [address] [place] [address] [place] [address] PCP - General 10/02/10 documented as of this encounter
--- OUTSIDE RECORDS SUMMARY | 2024-09-30 12:08 | XMS_ITS | Encounter Summary ---
Author Organization [facility] [place] [address] Care Team Providers Care Dietary Worker Name Role Phone Bobby Das MD Primary Care Provider [phone] Encounter Details Date Type Department Care Team [...] on filedocumented in this encounter Care Teams Dietary Worker Relationship Specialty Start Date End Date Bobby Das MD [address] [place] [address] [place] [address] PCP - General 10/02/10 documented as of this encounter
--- OUTSIDE RECORDS SUMMARY | 2024-09-30 12:08 | XMS_ITS | Encounter Summary ---
Author Organization [facility] Address [facility] [place] [address] Care Team Providers Care Vending Mechanic Name Role Phone Bobby Das MD Primary Care Provider [phone] Reason for Referral * Consultation (Routine) - Closed Specialty Diagnoses / Procedures Referred By Colby quezada Referred To Contact Dermatology Diagnoses Basal cell carcinoma of right ala nasi Mile Villafuerte MD [facility] [address] JENNY [place] [address] Jace Lynn MD [facility] DR JEN[place] [address] Referral ID Status Reason Start Date Expiration Date V isits Requested Visits Authorized [id number] Closed Consult, Test & Treat 08/05/2023 08/04/2024 1 1 Reason for Visit * Consultation (Urgent) - Closed Specialty Diagnoses / Procedures Referred By Conthomar t Referred To Contact Dermatology Diagnoses Basal cell carcinoma (BCC), unspecified site Bobby Das MD [address] [place] [address] [place] [address] [facility] [address] [place] [address] Referral ID Status Reason Start Date Expiration Date V isits Requested Visits Authorized [id number] Closed Consult, Test & Treat PCP Updated and/or Approved 06/12/2023 06/11/2024 6 6 Encounter Details Date Type Department Care Team (Late st Contact Info) Description 07/28/2023 10:00 AM EDT Office Visit Dermatology at [facility] [address] [place] [address] Mile Villafuerte MD [facility] DR JEN[place] [address] History of basal cell carcinoma (BCC); [place] [...] nevi N SCC N 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 Other: N/A RTC: 3 months for mole recheck and rosacea follow up []Note routed to special education secretary []Recall [...] and signed by: Mile Villafuerte MD Dermatology [facility] Patient seen and evaluated with staff driver operator: Jnue Lua MD Dermatology [facility] * June Lua MD - 07/28/2023 10:00 AM EDT [...] Report (07/28/2023 11:40 AM EDT) Final Diagnosis [id number] ? Location: [facility] The signing pathologist has [...] & Soft Tissue Pathologist Performed at: ??-[facility] [place] Dept. of Pathology, [place] [address] Director On Air: Scout Landis MD, FCAP, ??CLIA Certificate: [id number] DISCUSSION THIS RESULT REQUIRES PHYSICIAN/A.P.P. FOLLOW UP [...] labeled A1. ??pps(A) 08/04/2023 12:13 PM EDT [facility] SPECIMEN FROM SKIN / Unknown 07/28/2023 11:40 AM EDT 07/28/2023 11:40 AM EDT Mile Villafuerte MD PATHOLOGY/[place]TOLOGY [place] [id number] [place] [address] [place] [address] * Specimen to Pathology (07/28/2023 11:40 AM EDT) AP Specimen 07/28/2023 11:4 0 AM EDT 07/28/2023 11:40 AM EDT Narrative [facility] - 07/28/2023 11:40 AM EDT Specimen requisition ordered. ??Separate Pathology report to follow June Lua MD PATHOLOGY/CYTOLOGY O [place] Performing Organization Address City/[facility]/ZIP Co de Phone Number [facility] [place] [address] documented in this encounter Visit Diagnoses Diagnosis [...] face documented in this encounter Care Teams Vending Mechanic Relationship Specialty Start Date End Date Bobby Das MD [address] [place] [address] [place] [address] PCP - General 10/02/10 documented as of this encounter
--- OUTSIDE RECORDS SUMMARY | 2024-09-30 12:08 | XMS_ITS | Encounter Summary ---
Author Organization [facility] Address [facility] [place] [address] Care Team Providers Care Repairing Calibrator Name Role Phone Bobby Das MD Primary Care Provider [phone] Reason for Visit * Reason Comments Medication Refill Encounter Details Date Type Department Care Team (Late st Contact Info) Description 04/11/2023 Refill [place] [address] Augustin Lou MD [facility] HEMATOLOGY/[place] [address] Social History Tobacco Use Types Packs/Day Years [...] on filedocumented in this encounter Care Teams Repairing Calibrator Relationship Specialty Start Date End Date Bobby Das MD [address] [place] [address] [place] [phone] PCP - General 10/02/10 documented as of this encounter
--- OUTSIDE RECORDS SUMMARY | 2024-09-30 12:08 | XMS_ITS | Encounter Summary ---
Author Organization [facility] Address [facility] Bobby [facility] [address] Care Team Providers Care Welfare Analyst Name Role Phone Bobby Das MD Primary Care Provider [phone] Encounter Details Date Type Department Care Team (Late st Contact Info) Description 08/16/2022 Telephone [place] [address] Jewell Arroyo MD [facility] [place] [address] Social History Tobacco Use Types Packs/Day Years [...] inquire on patient status following consult for [id number], can refer to Dr. Celaya's note yesterday evening. Patient received 3u pRBC but Hb only improved to 7.8. Has not been seen this morning, so not clear if he is having active symptoms of GIB. Unfortunately our schedule today does not have time for a [id number], so I recommend the team talk to other facilitiesfor possible transfer where GI services are available. If patient remains admitted there, because we have no beds for transfer, recommend continuing IV PPI, transfusing for active bleeding or Hb<7, and touching base with team on Friday for potential [id number] Friday for push enteroscopy +/- colonoscopy. Jewell Arroyo MD Gastroenterology PGY-6 08/16/2022 11:12 AM Pager #[phone]' documented in this encounter Plan of Treatment Not on file documented as of this encounter Visit Diagnoses Not on filedocumented in this encounter Care Teams Welfare Analyst Relationship Specialty Start Date End Date Bobby Das MD [address] [place] [address] [place] [phone] PCP - General 10/02/10 documented as of this encounter
--- OUTSIDE RECORDS SUMMARY | 2024-09-30 12:08 | XMS_ITS | Encounter Summary ---
Author Organization [facility] [place] [address] Care Team Providers Care Vacuum Extractor Operator Name Role Phone Bobby Das MD Primary Care Provider [phone] Reason for Visit * Auth/Cert (Routine) Specialty Diagnoses / Procedures Referred By Colby quezada Referred To Contact Diagnoses GI bleed gi bleed [place] [address] [facility] Referral ID Status Reason Start Date Expiration Date Visits Re quested Visits Authorized [id number] 1 1 Encounter Details Date Type Department Care Team (Late st Contact Info) Description 12/09/2022 10:30 AM EST - 12/09/2022 11:15 AM EST [place] [address] Giovani Ponce MD [facility] [place] [address] COLONOSCOPY, DIAGNOSTIC (WRVU 3.26) Social History Tobacco [...] Problems Diagnosis ??? Coronary artery disease involving kake [...] valve prolapse) s/p repair Surgery done at [facility] in 2000 ??? Hypertriglyceridemia ??? Adhesive [...] bleed in 05/31 presenting in transfer from [facility] for hematochezia. ?? Mr. Zamora first had [...] rectum, at which point he presented to [facility] for further workup. ?? Per report, patient [...] further management. Primary Team Inpatient Physicians at [facility] was: Attending Physician(s): Aristides Hinds MD Resident(s): Augustin Lou MD; Remigio Morel MD Inpatient Provider Contact Information: If you have questions about this document please contact the [facility] ground transportation operator at and ask for one of [...] Procedure Component Value - Date/Time COVID-19 PCR [[id number]] Collected: 12/12/22611 Lab Status: Final result Specimen: [...] using the Simplexa COVID-19 Direct Assay by GuestSpan as authorized by the FDA issued Emergency [...] Department of Pathology and Laboratory Medicine at [facility], certified under the Clinical Laboratory Improvement Amendments [...] fact sheets at the following FDA website: https://www.fda.gov/medical-devices/witvwllnptf-fidblno-1957-ijtlv-28-jqapvsknq- cgn-cavpchpzsccsuf-lkvjjgl-devices/buwfs-gnlmqvqkmzk-qnyg SARS-CoV-2 Source RAW SAMPLER Swab Microbiology Results (last 6 months) Procedure Component Value - Date/Time COVID-19 PCR [[id number]] Collected: 12/12/22611 Lab Status: Final result Specimen: [...] using the Simplexa COVID-19 Direct Assay by GuestSpan as authorized by the FDA issued Emergency [...] Department of Pathology and Laboratory Medicine at [facility], certified under the Clinical Laboratory Improvement Amendments [...] fact sheets at the following FDA website: https://www.fda.gov/medical-devices/nfjdlknqbwp-pxzpeuy-7885-zkssj-42-pzkcoidki- ytf-ekesodekhqmfiy-uinkwrz-devices/gujkj-cayvuxhduaf-cxct SARS-CoV-2 Source RAW SAMPLER Swab Diagnostic Studies: Colonoscopy (12/09): Impression: ? [...] Center 05/27/2023 11:00 AM Giovani Ponce MD [facility] GASTRO [facility] 12/16/2022 11:[address] Bobby Reilly [facility] [place] Your Inpatient Doctor: MD Aristides Hughes MD Aditya Sharma, MD Your Primary Care Provider: Bobby Das MD [phone] For questions regarding this document or issues relating to this hospitalization on the Medical Service, please contact your inpatient physician through the [facility] Sock Lining Examiner . Issues afterhours and on weekends will [...] occurs, please contact your Doctor. Please call [phone] before 8pm Mon-Fri with problems, questions or concerns. If you call after 8pm or on weekends, call the Hospital at [phone] and ask to speak to the Performance Manager caponizer and the ground transportation operator will contact that person for you. When should you call for help? Call [phone] anytime you think you may need emergency [...] any problems. Where can you learn more? [facility] View your After Visit Summary and more online at [email or web address] If you would like to provide feedback about your hospital experience, please call the Office of Patient and Family Relations at . If you have received this After Visit Summary in error, please immediately return it in person to the department, or notify the [facility] Privacy Office by calling toll free at between the hours of 8AM and 5PM to arrange for our retrieval of the documents at no cost to you. Content Version: 12.2 ?? 5474-7460 Docin. Care instructions adapted under license by [facility]. If you have questions about a medical condition or this instruction, always ask your healthcare professional. Docin disclaims any warranty or liability for your use of this information. Discharge References/Attachments None To-Do List To-Do List Future Appointments Provider Department Dept Phone 05/27/2023 11:00 AM Giovani Ponce MD Gastroenterology at [facility] Arrive at: Service Desk Agent Area [phone] Future Orders Complete By Expires CBC (with Diff) [[id number] Custom] 12/19/2022 (Approximate) 06/20/2023 Process Instructions: Scheduling Instructions: Comments: Questions: Provider Contact Information: Bobby Das MD [address] [place] [address] / [facility] [address] Signed: Remigio Morel MD Discharged: 12/12/2022 [...] occurs, please contact your Doctor. Please call [phone] before 8pm Mon-Fri with problems, questions or concerns. If you call after 8pm or on weekends, call the Hospital at [phone] and ask to speak to the Performance Manager caponizer and the ground transportation operator will contact that person for you. When should you call for help? Call [phone] anytime you think you may need emergency [...] any problems. Where can you learn more? [facility] View your After Visit Summary and more online at [email or web address] If you would like to provide feedback about your hospital experience, please call the Office of Patient and Family Relations at . If you have received this After Visit Summary in error, please immediately return it in person to the department, or notify the [facility] Privacy Office by calling toll free at between the hours of 8AM and 5PM to arrange for our retrieval of the documents at no cost to you. Content Version: 12.2 ?? [phone] Docin. Care instructions adapted under license by [facility]. If you have questions about a medical condition or this instruction, always ask your healthcare professional. Docin disclaims any warranty or liability for your [...] Center 05/27/2023 11:00 AM Giovani Ponce MD [facility] GASTRO [facility] 12/16/2022 11:[address] Bobby Reilly [facility] [place] Your Inpatient Doctor: MD Aristides Hughes MD Aditya Sharma, MD Your Primary Care Provider: Bobby Das MD [phone] For questions regarding this document or issues relating to this hospitalization on the Medical Service, please contact your inpatient physician through the [facility] Sock Lining Examiner . Issues afterhours and on weekends will be handled by the Hospitalist staff on-call. documented in this encounter Medications at Time of Discharge Medication Sig Dispensed Refills Start Date End Date apixaban (Eliquis) 2.5 mg Tablet Take 1 tablet by mouth 2 times daily. 60 tablet 3 12/12/2022 fluticasone propionate (FLONASE) 50 mcg/actuation Orrtanna, Suspension 1 spray by Each Nare route [...] Problems Diagnosis ??? 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 HFrEF (heart [...] spent >30 minutes (Day of Discharge Code 58305) involved in the final examination of the [...] removed. Pt ambulated independently to exit. * rBittany Avila RN - 12/12/2022 11:30 AM EST [...] Biopsy Spine 07/20/2019 Bobby Marshall MD [facility] RAD ??? IR VERTEBROPLASTY LUMBAR MULTIPLE LEVELS 07/20/2019 IR Vertebroplasty Lumbar Multiple Levels 07/20/2019 Bobby Marshall MD [facility] RAD ??? IR VERTEBROPLASTY THORACIC SINGLE LEVEL 10/25/2020 IR Vertebroplasty Thoracic Single Level 10/25/2020 Matt Chisholm MD [facility] INTER[facility] RAD ??? PRO COLONOSCOPY, DIAGNOSTIC N/A 12/09/2022 COLONOSCOPY, DIAGNOSTIC performed by Giovani Ponce MD at [facility] ENDOSCOPY ??? PRO COLONOSCOPY, FLEX, W/CONTROL, BLEEDING N/A 06/25/2022 COLONOSCOPY; W CONTROL OF BLEEDING, ANY METHOD performed by Giovani Ponce MD at [facility] ENDOSCOPY ??? PRO EMBLC/THRMBC FEMORAL POPLITEAL AORTO-ILIAC ARTERY Left 05/15/2022 EMBOLECTOMY OR THROMBECTOMY, FEMOROPOPLITEAL, AORTOILIAC ARTERY BY LEG INCISION (WRVU 19.48) performed by Fito Summers MD at [facility] MAIN OR ??? PRO SMALL BOWEL ENDOSCOPY, PAST 2ND DUOD N/A 06/25/2022 SMALL BOWEL ENTEROSCOPY performed by Giovani Ponce MD at [facility] ENDOSCOPY ??? PRO UPPER GI ENDOSCOPY, CTRL BLEED 05/31/2022 EGD, W CONTROL OF BLEEDING, ANY METHOD performed by Giovani Ponce MD at [facility] ENDOSCOPY ??? PRO UPPER GI ENDOSCOPY, DIAGNOSTIC N/A 05/31/2022 EGD, UPPER GI ENDOSCOPY performed by Giovani Ponce MD at [facility] ENDOSCOPY ??? PRO UPPER GI ENDOSCOPY, DIAGNOSTIC N/A 06/25/2022 EGD, UPPER GI ENDOSCOPY performed by Giovani Ponce MD at [facility] ENDOSCOPY Social History: Patient lives with [...] and measurable assessment of functional outcome. Pager: [phone] EVELIA COVINGTON OT 12/12/2022 Occupational Therapy Rehabilitation Department * Remigio Morel MD - 12/11/2022 7:02 AM EST [facility] Inpatient Progress Note Date: 12/11/22 Patient Information: Koko Zamora [id number] 1940 PCP: Bobby Das MD PCP Admit [...] Gas) No results found for: PHART, PO2ART, PZU8UFK, SLK3HIJ Microbiology: Microbiology Results (Last 30 days) No [...] 12/11/22 7:02 AM Internal Medicine, PGY-1 Pager: [phone] Associated attestation - Aristides Hinds MD - [...] of two midnights or is on the [facility] inpatient only procedure list (status C) due [...] Morel MD - 12/10/2022 8:01 AM EST [facility] Inpatient Progress Note Date: 12/10/22 Patient Information: Koko Zamora [id number] 1940 PCP: Bobby Das MD PCP Admit [...] Gas) No results found for: PHART, PO2ART, GIW5HTC, KHR3NTF Microbiology: Microbiology Results (Last 30 days) No [...] 12/10/22 10:46 AM Internal Medicine, PGY-1 Pager: [phone] Associated attestation - Aristides Hinds MD - [...] of two midnights or is on the [facility] inpatient only procedure list (status C) due to: #Lower GI bleed with underlying# Colonic & duodenal angiectasias. * Chadwick Fararr RN - 12/09/2022 7:36 PM EST Pt [...] OSH w/recurrent symptomatic anemia now transferred to [facility] for further care. INTERVAL: [...] w/recurrent sympto matic anemia now transferred to [facility] for further care. With [...] Morel MD - 12/09/2022 6:14 AM EST [facility] Inpatient Progress Note Date: 12/09/22 Patient Information: Koko Zamora [id number] 1940 PCP: Bobby Das MD PCP Admit [...] Gas) No results found for: PHART, PO2ART, SVU5WKR, KII6AHH Microbiology: Microbiology Results (Last 30 days) No [...] since receiving 2 units of pRBCs at [facility]. Will continue IV PPI BID, keep him [...] 12/09/22 6:14 AM Internal Medicine, PGY-1 Pager: [phone] Associated attestation - Aristides Hinds MD - [...] of two midnights or is on the [facility] inpatient only procedure list (status C) due [...] ischemia I99.8 ??? 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 HFrEF [...] PCP: Bobby Das MD PCP phone number: [phone] Date of Admission: 12/08/2022 ( Hospital Day [...] bleed in 05/31 presenting in transfer from [facility] for hematochezia. Mr. Zamora first had an [...] rectum, at which point he presented to [facility] for further workup. Per report, patient demonstrated [...] month ??? fluticasone propionate (FLONASE) 50 mcg/actuation Orrtanna, Suspension 1 spray by Each Nare route [...] since receiving 2 units of pRBCs at [facility]. Will plan on starting IV PPI BID, [...] Status: Full Augustin Lou MD, PGY-2 12/08/2022 [facility] Medicine Blue Team #[id number] Associated attestation - Aristides Hinds MD - [...] in agreement with plan. Referral made to [facility] RS. Do Cuadra RN [phone] Pager [phone] * Plan of Care - Luann Barrientos [...] Spouse Ursula Any patient receiving care in [place] must abide by [place] law. The hierarchy [...] The agent with financial power of deputy county attorney or a conservator appointed in accordance [...] Current DME: none Home Address confirmed as: [address] [place] [phone] Social & Family Supports: All names listed below confirmed with patient as current and correct Extended Emergency Contact Information Primary Emergency Contact: Ursula Zamora Address: [address] [place] [phone] [facility] Relation: Spouse Current Care Provided by: self [...] type* / Secondary Insurance: [facility] ONLY if patient has Medicare A&B - Does this patient have secondary insurance?: Yes ; Prescription Coverage: Yes Preferred Pharmacy: [facility] [place], [place] - [address] [place] [address] [place] [id number] [facility] Status: Patient is a : No Primary Care Provider confirmed: Bobby Das MD [phone] Patient/Caregiver Goals of Treatment: Return home Potential Needs for Transition of Care: none Agency Referrals: Not Applicable Transportation: no concerns Transportation Anticipated: family or friend will provide Concerns to be Addressed: no discharge needs identified Assessment: Patient is admitted to [facility] service for GIB Plan: The patient alert [...] with transition of care planning. Tiffanie Patton [facility] [phone] * Plan of Care - Matt Raya [...] Box MD - 12/09/2022 5:35 PM EST [facility] Department of Cardiology Initial Consult Note Patient: Koko Zamora Primary Care: Bobby Das MD : 1940 Referring Provider: Giulia Xavier Date of service: 12/09/2022 Reason for consult: anticoagulation management in setting of GIB HISTORY OF PRESENT ILLNESS Koko Zamora is a 82 y.o. male with history of pre-diabetes, hyperlipidemia, mitral valve prolapse s/p MV repair in [place] in 2000, alcohol use disorder, duodenal & [...] Biopsy Spine 07/20/2019 Bobby Marshall MD [facility] RAD ??? IR VERTEBROPLASTY LUMBAR MULTIPLE LEVELS 07/20/2019 IR Vertebroplasty Lumbar Multiple Levels 07/20/2019 Bobby Marshall MD [facility] RAD ??? IR VERTEBROPLASTY THORACIC SINGLE LEVEL 10/25/2020 IR Vertebroplasty Thoracic Single Level 10/25/2020 Matt Chisholm MD [facility] RAD ??? PRO COLONOSCOPY, FLEX, W/CONTROL, BLEEDING N/A 06/25/2022 COLONOSCOPY; W CONTROL OF BLEEDING, ANY METHOD performed by Giovani Ponce MD at [facility] ENDOSCOPY ??? PRO EMBLC/THRMBC FEMORAL POPLITEAL AORTO-ILIAC ARTERY Left 05/15/2022 EMBOLECTOMY OR THROMBECTOMY, FEMOROPOPLITEAL, AORTOILIAC ARTERY BY LEG INCISION (WRVU 19.48) performed by Fito Summers MD at [facility] MAIN OR ??? PRO SMALL BOWEL ENDOSCOPY, PAST 2ND DUOD N/A 06/25/2022 SMALL BOWEL ENTEROSCOPY performed by Giovani Ponce MD at [facility] ENDOSCOPY ??? PRO UPPER GI ENDOSCOPY, CTRL BLEED 05/31/2022 EGD, W CONTROL OF BLEEDING, ANY METHOD performed by Giovani Ponce MD at [facility] ENDOSCOPY ??? PRO UPPER GI ENDOSCOPY, DIAGNOSTIC N/A 05/31/2022 EGD, UPPER GI ENDOSCOPY performed by Giovani Ponce MD at [facility] ENDOSCOPY ??? PRO UPPER GI ENDOSCOPY, DIAGNOSTIC N/A 06/25/2022 EGD, UPPER GI ENDOSCOPY performed by Giovani Ponce MD at [facility] ENDOSCOPY MEDICATIONS AND ALLERGIES Outpatient Medications [...] mitral valve prolapse s/p MV repair in [place] in 2000, alcohol use disorder, duodenal & [...] page if further consultation required. Chino Mckeon Pharmacy Benefit Manager, PGY4 [phone] STAFF ADDENDUM Patient interviewed and [...] contact patient to complete I/A. Per staff pharmacist, patient is asleep. Do Cuadra RN CM [phone] Pager [phone] * Op Note - Giovani Ponce MD - 12/09/2022 11:26 AM EST DH Operative Note Patient Name: Koko Zamora : [id number] MR#: [id number] Case Date: 12/09/2022 Surgeon: Surgeon(s) and Role: [...] OSH w/recurrent symptomatic anemia now transferred to [facility] for further care. At [facility], he noted he was passing bright red blood and strings of clots. Given this, paired with him feeling light-headed, [facility] felt he needed to be in tertiary [...] Biopsy Spine 07/20/2019 Bobby Marshall MD [facility] INTER[facility] RAD ??? IR VERTEBROPLASTY LUMBAR MULTIPLE LEVELS 07/20/2019 IR Vertebroplasty Lumbar Multiple Levels 07/20/2019 Bobby Marshall MD [facility] INTERVENT[facility] RAD ??? IR VERTEBROPLASTY THORACIC SINGLE LEVEL 10/25/2020 IR Vertebroplasty Thoracic Single Level 10/25/2020 Matt Chisholm MD [facility] INTER[facility] RAD ??? PRO COLONOSCOPY, FLEX, W/CONTROL, BLEEDING N/A 06/25/2022 COLONOSCOPY; W CONTROL OF BLEEDING, ANY METHOD performed by Giovani Ponce MD at [facility] ENDOSCOPY ??? PRO EMBLC/THRMBC FEMORAL POPLITEAL AORTO-ILIAC ARTERY Left 05/15/2022 EMBOLECTOMY OR THROMBECTOMY, FEMOROPOPLITEAL, AORTOILIAC ARTERY BY LEG INCISION (WRVU 19.48) performed by Fito Summers MD at [facility] MAIN OR ??? PRO SMALL BOWEL ENDOSCOPY, PAST 2ND DUOD N/A 06/25/2022 SMALL BOWEL ENTEROSCOPY performed by Giovani Ponce MD at [facility] ENDOSCOPY ??? PRO UPPER GI ENDOSCOPY, CTRL BLEED 05/31/2022 EGD, W CONTROL OF BLEEDING, ANY METHOD performed by Giovani Ponce MD at [facility] ENDOSCOPY ??? PRO UPPER GI ENDOSCOPY, DIAGNOSTIC N/A 05/31/2022 EGD, UPPER GI ENDOSCOPY performed by Giovani Ponce MD at [facility] ENDOSCOPY ??? PRO UPPER GI ENDOSCOPY, DIAGNOSTIC N/A 06/25/2022 EGD, UPPER GI ENDOSCOPY performed by Giovani Ponce MD at [facility] ENDOSCOPY SOCIAL HX: Social History Socioeconomic [...] month ??? fluticasone propionate (FLONASE) 50 mcg/actuation Orrtanna, Suspension 1 spray by Each Nare route [...] IMAGING: Reports and images personally reviewed in [facility]. Images independently interpreted. No orders to [...] OSH w/recurrent symptomatic anemia now transferred to [facility] for further care. On [...] NPO other than prep/meds with sips. At [place], patient should be strict NPO. - Night [...] Routine 12/09/2022 11:22 AM EST Colonoscopy, Diagnostic ([id number]) 12/09/2022 11:18 AM EST hematochezia HEMOGRAM Routine [...] Cell 5.6 4.0 - 9.5 x10(3)/mc L [facility] Red Blood Cell 3.62(L) 4.58 - 5.54 x10(6)/mc L [facility] Hemoglobin 9.7(L) 13.7 - 16.5 g/dL [facility] Hematocrit 31.0(L) 40.5 - 48.5 % [facility] Mean Cell Volume 85.6 82.9 - 93.[address] [facility] Mean Cell Hemoglobin 26.8(L) 27.5 - 32.[address] [facility] Mean Cell Hemoglobin Concentration 31.3(L) 32.0 - 35.7 g/dL [facility] Platelet 180 145 - 357 x10(3)/mc L [facility] RDW Standard Deviation 59.0(H) 36.0 - 45.[address] [facility] RDW coefficient of variation 18.6(H) 11.4 - 13.8 % [facility] Mean Platelet Volume 10.7 7.6 - 12.9 fL [facility] NRBC% auto 0.0 % [facility] NRBC Absolute 0.000 0.000 - 0.000 x10(3)/mc L [facility] Blood 12/12/2022 8:19 AM EST 12/12/2022 8:58 AM EST Narrative Resulting Agency Comment Spec In Lab Aristides Hinds MD HEMATOLOGY ORDERAB LES [facility] [place] [address] * COVID-19 PCR (12/12/2022 6:12 AM EST) SARS-CoV-2 RNA (Rapid) Not Detected Not Detected [facility] Comment: This result should be [...] using the Simplexa COVID-19 Direct Assay by GuestSpan as authorized by the FDA issued Emergency [...] Department of Pathology and Laboratory Medicine at [facility], certified under the Clinical Laboratory Improvement Amendments [...] fact sheets at the following FDA website: https://www.fda.gov/medical-devices/vlzobxspjtp-zbdujuo-9272-xotlf-29-wnsumpbyw- use-a tgcygmhibfvws-iqokjuw-wsdpwei/rqdsn-jllwwbjhuyv-cjcs SARS-CoV-2 Source RAW SAMPLER Swab [facility] Nasopharyngeal Swab 12/12/19 6:12 AM EST 12/12/2022 6:26 AM EST Comment:Specimen Source->Juanito opharyngeal Swab Narrative Resulting Agency Comment Spec In Lab Stu Padilla MD MICROBIOLOGY - GENER AL ORDERABLES [facility] [place] [address] * (ABNORMAL) Basic Metabolic Panel (non-fasting) (12/12/2022 12:30 AM EST) Glucose 283(H) 65 - 199 mg/dL [facility] Comment:Diabetes: >=200 mg/d L plus symptoms Blood Urea Nitrogen 15 10 - 20 mg/dL [facility] Creatinine 0.92 0.80 - 1.50 mg/dL [facility] Sodium 141 135 - 145 mmol/L [facility] Potassium 3.9 3.5 - 5.0 mmol/L [facility] Comment: Please note: ??Patients with WBC >100,000 may have falsely elevated Potassium levels. ??For accurate Potassium quantification in these patients send serum separator tube (gold top) for subsequent determinations. ??Contact the Clinical Chemistry Laboratory if there are any questions. Chloride 107 98 - 107 mmol/L [facility] Carbon Dioxide 24 22 - 31 mmol/L [facility] Anion Gap 10 5 - 15 mmol/L [facility] Calcium 8.7 8.5 - 10.5 mg/dL [facility] Est Glomerular Filtration Rate 84 >=60 mL/min/1. 73 m?? [facility] Comment: This patient's estimated GFR [...] MD CHEMISTRY ORDERABL ES Performing Organization Address City/State/RUST Co de Phone Number [facility] [place] [address] * (ABNORMAL) Differential, Automated (12/11/2022 4:45 AM EST) Neutrophil % 64.0 % [facility] Neutrophil Absolute 5.22 1.70 - 6.10 x10(3)/mc L [facility] Lymph % 21.5 % [facility] Lymphocytes Abs 1.8 0.9 - 3.2 x10(3)/mc L [facility] Monocyte % 12.1 % [facility] Monocyte Abs 1.0(H) 0.3 - 0.9 x10(3)/mc L [facility] Eos % 1.6 % [facility] Eosinophils Abs 0.1 0.0 - 0.4 x10(3)/mc L [facility] Basophil % 0.4 % [facility] Baso Absolute 0.0 0.0 - 0.1 x10(3)/mc L [facility] Immature Gran % 0.40 % [facility] Comment: Immature granulocytes(IG's)percentage and absolute count will include metamyelocytes, myelocytes, and promyelocytes. Blood smears from CBCs yielding IG's will be scanned manually for concordance. If this scan disagrees with the automated IG or if promyelocytes are noted, a manual differential will be performed. Immature Gran Absolute 0.03 0.00 - 0.04 x10(3)/mc L [facility] Blood 12/11/2022 4:45 AM EST 12/11/2022 6:48 AM EST Narrative Resulting Agency Comment Spec In Lab Augustin Lou MD HEMATOLOGY ORDERABLE S [facility] [place] [address] * (ABNORMAL) Hemogram (12/11/2022 4:45 AM EST) White Blood Cell 8.2 4.0 - 9.5 x10(3)/mc L [facility] Red Blood Cell 3.57(L) 4.58 - 5.54 x10(6)/[facility] Hemoglobin 9.4(L) 13.7 - 16.5 g/dL [facility] Hematocrit 30.6(L) 40.5 - 48.5 % [facility] Mean Cell Volume 85.7 82.9 - 93.[address] [facility] Mean Cell Hemoglobin 26.3(L) 27.5 - 32.[address] [facility] Mean Cell Hemoglobin Concentration 30.7(L) 32.0 - 35.7 g/dL [facility] Platelet 185 145 - 357 x10(3)/mc L [facility] RDW Standard Deviation 60.1(H) 36.0 - 45.[address] [facility] RDW coefficient of variation 19.4(H) 11.4 - 13.8 % [facility] Mean Platelet Volume 11.3 7.6 - 12.9 fL [facility] NRBC% auto 0.0 % [facility] NRBC Absolute 0.000 0.000 - 0.000 x10(3)/mc L [facility] Blood 12/11/2022 4:45 AM EST 12/11/2022 6:48 AM EST Narrative Resulting Agency Comment Spec In Lab Augustin Lou MD HEMATOLOGY ORDERABLE S Performing Organization Address [facility]/[place] Co de Phone Number [facility] [place] [place] [address] * Heparin (unfractionated) Level (12/11/2022 4:45 AM EST) UF Heparin 0.80 IU/mL [facility] Comment: Specimen drawn more than [...] MD HEMATOLOGY ORDERAB LES Performing Organization Address [facility]/[place] Co de Phone Number [facility] [place] [address] * Basic Metabolic Panel (non-fasting) (12/11/2022 4:45 AM EST) Glucose Not Perf 65 - 199 [facility] Comment: Sample improperly processed prior to receipt. Diabetes: >=200 mg/dL plus symptoms Blood Urea Nitrogen 15 10 - 20 mg/dL [facility] Creatinine 1.10 0.80 - 1.50 mg/dL [facility] Sodium 143 135 - 145 mmol/L [facility] Potassium 3.7 3.5 - 5.0 mmol/L [facility] Comment: Please note: ??Patients with WBC >100,000 may have falsely elevated Potassium levels. ??For accurate Potassium quantification in these patients send serum separator tube (gold top) for subsequent determinations. ??Contact the Clinical Chemistry Laboratory if there are any questions. Chloride 106 98 - 107 mmol/L [facility] Carbon Dioxide 26 22 - 31 mmol/L [facility] Anion Gap 11 5 - 15 mmol/L [facility] Calcium 8.9 8.5 - 10.5 mg/dL [facility] Est Glomerular Filtration Rate 68 >=60 mL/min/1. 73 m?? [facility] Comment: This patient's estimated [...] Lab Aristides Hinds MD CHEMISTRY ORDERABL ES [facility] [place] [address] * Heparin (unfractionated) Level (12/10/2022 10:35 PM EST) UF Heparin 0.72 IU/mL [facility] Comment: Heparin (anti-Xa) [...] MD HEMATOLOGY ORDERAB LES Performing Organization Address City/[facility]/ZIP Co de Phone Number [facility] [place] [address] * (ABNORMAL) Hemogram (12/10/2022 10:35 PM EST) White Blood Cell 6.8 4.0 - 9.5 x10(3)/mc L [facility] Red Blood Cell 3.62(L) 4.58 - 5.54 x10(6)/mc L [facility] Hemoglobin 9.6(L) 13.7 - 16.5 g/dL [facility] Hematocrit 31.4(L) 40.5 - 48.5 % [facility] Mean Cell Volume 86.7 82.9 - 93.[address] [facility] Mean Cell Hemoglobin 26.5(L) 27.5 - 32.[address] [facility] Mean Cell Hemoglobin Concentration 30.6(L) 32.0 - 35.7 g/dL [facility] Platelet 177 145 - 357 x10(3)/mc L [facility] RDW Standard Deviation 62.9(H) 36.0 - 45.[address] [facility] RDW coefficient of variation 19.8(H) 11.4 - 13.8 % [facility] Mean Platelet Volume 10.5 7.6 - 12.[address] [facility] NRBC% auto 0.0 % [facility] NRBC Absolute 0.000 0.000 - 0.000 x10(3)/mc L [facility] Blood 12/10/2022 10:3 5 PM EST 12/10/2022 10:42 PM EST Narrative Resulting Agency Comment Spec In Lab Aristides Hinds MD HEMATOLOGY ORDERAB LES Performing Organization Address [facility]/[place] Co de Phone Number [facility] [place] [address] * Heparin (unfractionated) Level (12/10/2022 4:40 PM EST) UF Heparin 0.49 IU/mL [facility] Comment: Heparin (anti-Xa) [...] Lab Aristides Hinds MD HEMATOLOGY ORDERAB LES [facility] [place] [address] * (ABNORMAL) Basic Metabolic Panel (non-fasting) (12/10/2022 10:08 AM EST) Glucose 261(H) 65 - 199 mg/dL [facility] Comment:Diabetes: >=200 mg/d L plus symptoms Blood Urea Nitrogen 12 10 - 20 mg/dL [facility] Creatinine 1.01 0.80 - 1.50 mg/dL [facility] Sodium 142 135 - 145 mmol/L [facility] Potassium 4.0 3.5 - 5.0 mmol/L [facility] Comment: Please note: ??Patients with WBC >100,000 may have falsely elevated Potassium levels. ??For accurate Potassium quantification in these patients send serum separator tube (gold top) for subsequent determinations. ??Contact the Clinical Chemistry Laboratory if there are any questions. Chloride 109(H) 98 - 107 mmol/L [facility] Carbon Dioxide 23 22 - 31 mmol/L [facility] Anion Gap 10 5 - 15 mmol/L [facility] Calcium 8.7 8.5 - 10.5 mg/dL [facility] Est Glomerular Filtration Rate 75 >=60 mL/min/1. 73 m?? [facility] Comment: This patient's estimated GFR [...] MD CHEMISTRY ORDERABL ES Performing Organization Address City/State/[place] Co de Phone Number [facility] [address] [place] [address] * Differential, Automated (12/10/2022 9:20 AM EST) Neutrophil % 62.4 % [facility] Neutrophil Absolute 3.90 1.70 - 6.10 x10(3)/[facility] [place] [facility] Lymph % 21.7 % [facility] Lymphocytes Abs 1.4 0.9 - 3.2 x10(3)/[facility] [place] [facility] Monocyte % 13.4 % [facility] Monocyte Abs 0.8 0.3 - 0.9 x10(3)/[facility] [place] [facility] Eos % 1.6 % [facility] Eosinophils Abs 0.1 0.0 - 0.4 x10(3)/[facility] [place] [facility] Basophil % 0.6 % [facility] Baso Absolute 0.0 0.0 - 0.1 x10(3)/[facility] [place] [facility] Immature Gran % 0.30 % [facility] Comment: Immature granulocytes(IG's)percentage and absolute count will include metamyelocytes, myelocytes, and promyelocytes. Blood smears from CBCs yielding IG's will be scanned manually for concordance. If this scan disagrees with the automated IG or if promyelocytes are noted, a manual differential will be performed. Immature Gran Absolute 0.02 0.00 - 0.04 x10(3)/mcL [facility] Blood 12/10/2022 9:20 AM EST 12/10/2022 9:27 AM EST Narrative Resulting Agency Comment Spec In Lab Augustin Lou MD HEMATOLOGY ORDERABLE S [facility] [place] [address] * (ABNORMAL) Hemogram (12/10/2022 9:20 AM EST) White Blood Cell 6.3 4.0 - 9.5 x10(3)/mc L [facility] Red Blood Cell 3.46(L) 4.58 - 5.54 x10(6)/mc L [facility] Hemoglobin 9.4(L) 13.7 - 16.5 g/dL [facility] Hematocrit 30.1(L) 40.5 - 48.5 % [facility] Mean Cell Volume 87.0 82.9 - 93.[address] [facility] Mean Cell Hemoglobin 27.2(L) 27.5 - 32.[address] [facility] Mean Cell Hemoglobin Concentration 31.2(L) 32.0 - 35.7 g/dL [facility] Platelet 180 145 - 357 x10(3)/mc L [facility] RDW Standard Deviation 63.2(H) 36.0 - 45.[address] [facility] RDW coefficient of variation 19.9(H) 11.4 - 13.8 % [facility] Mean Platelet Volume 10.4 7.6 - 12.[address] [facility] NRBC% auto 0.0 % [facility] NRBC Absolute 0.000 0.000 - 0.000 x10(3)/mc L [facility] Blood 12/10/2022 9:20 AM EST 12/10/2022 9:27 AM EST Narrative Resulting Agency Comment Spec In Lab Augustin Lou MD HEMATOLOGY ORDERABLE S [facility] [place] [address] * Differential, Automated (12/09/2022 5:42 PM EST) Neutrophil % 63.5 % [facility] Neutrophil Absolute 3.67 1.70 - 6.10 x10(3)/[facility] [place] [facility] Lymph % 19.7 % [facility] Lymphocytes Abs 1.1 0.9 - 3.2 x10(3)/[facility] [place] [facility] Monocyte % 14.4 % [facility] Monocyte Abs 0.8 0.3 - 0.9 x10(3)/[facility] [place] [facility] Eos % 1.6 % [facility] Eosinophils Abs 0.1 0.0 - 0.4 x10(3)/[facility] [place] [facility] Basophil % 0.5 % [facility] Baso Absolute 0.0 0.0 - 0.1 x10(3)/[facility] [place] [facility] Immature Gran % 0.30 % [facility] Comment: Immature granulocytes(IG's)percentage and absolute count will include metamyelocytes, myelocytes, and promyelocytes. Blood smears from CBCs yielding IG's will be scanned manually for concordance. If this scan disagrees with the automated IG or if promyelocytes are noted, a manual differential will be performed. Immature Gran Absolute 0.02 0.00 - 0.04 x10(3)/[facility] [place] [facility] Blood 12/09/2022 5:42 PM EST 12/09/2022 5:53 PM EST Narrative Resulting Agency Comment Spec In Lab Augustin Lou MD HEMATOLOGY ORDERABLE S Performing Organization Address City/[facility]/[place] [address] * (ABNORMAL) Hemogram (12/09/2022 5:42 PM EST) White Blood Cell 5.8 4.0 - 9.5 x10(3)/mc L [facility] Red Blood Cell 3.39(L) 4.58 - 5.54 x10(6)/mc L [facility] Hemoglobin 9.0(L) 13.7 - 16.5 g/dL [facility] Hematocrit 28.8(L) 40.5 - 48.5 % [facility] Mean Cell Volume 85.0 82.9 - 93.[address] [facility] Mean Cell Hemoglobin 26.5(L) 27.5 - 32.[address] [facility] Mean Cell Hemoglobin Concentration 31.3(L) 32.0 - 35.7 g/dL [facility] Platelet 167 145 - 357 x10(3)/mc L [facility] RDW Standard Deviation 61.7(H) 36.0 - 45.[address] [facility] RDW coefficient of variation 20.3(H) 11.4 - 13.8 % [facility] Mean Platelet Volume 10.2 7.6 - 12.[address] [facility] NRBC% auto 0.0 % [facility] NRBC Absolute 0.000 0.000 - 0.000 x10(3)/[facility] Blood 12/09/2022 5:42 PM EST 12/09/2022 5:53 PM EST Narrative Resulting Agency Comment Spec In Lab Augustin Lou MD HEMATOLOGY ORDERABLE S [facility] [place] [address] * COLONOSCOPY (12/09/2022 11:22 AM EST) COLONOSCOPY [facility] Endoscopy Procedure Date: 12/09/2022 11:22 AM ? Patient Name: Koko Zamora ? Date of : 1940 ? Age: 82 ? Order #: [id number] ? Instrument Name: ? Procedure: ? Colonoscopy [...] 12:30 AM EST) Neutrophil % 61.7 % [facility] Neutrophil Absolute 4.49 1.70 - 6.10 x10(3)/[facility] [place] [facility] Lymph % 22.9 % [facility] Lymphocytes Abs 1.7 0.9 - 3.2 x10(3)/[facility] [place] [facility] Monocyte % 12.5 % [facility] Monocyte Abs 0.9 0.3 - 0.9 x10(3)/[facility] [place] [facility] Eos % 1.8 % [facility] Eosinophils Abs 0.1 0.0 - 0.4 x10(3)/[facility] [place] [facility] Basophil % 0.7 % [facility] Baso Absolute 0.0 0.0 - 0.1 x10(3)/[facility] [place] [facility] Immature Gran % 0.40 % [facility] Comment: Immature granulocytes(IG's)percentage and absolute count will include metamyelocytes, myelocytes, and promyelocytes. Blood smears from CBCs yielding IG's will be scanned manually for concordance. If this scan disagrees with the automated IG or if promyelocytes are noted, a manual differential will be performed. Immature Gran Absolute 0.03 0.00 - 0.04 x10(3)/[facility] [place] [facility] Blood 12/09/2022 12:3 0 AM EST 12/09/2022 12:50 AM EST Narrative Resulting Agency Comment Spec In Lab Augustin Lou MD HEMATOLOGY ORDERABLE S [facility] [place] [address] * (ABNORMAL) Hemogram (12/09/2022 12:30 AM EST) White Blood Cell 7.3 4.0 - 9.5 x10(3)/mc L [facility] Red Blood Cell 3.44(L) 4.58 - 5.54 x10(6)/mc L [facility] Hemoglobin 9.2(L) 13.7 - 16.5 g/dL [facility] Hematocrit 29.3(L) 40.5 - 48.5 % [facility] Mean Cell Volume 85.2 82.9 - 93.[address] [facility] Mean Cell Hemoglobin 26.7(L) 27.5 - 32.[address] [facility] Mean Cell Hemoglobin Concentration 31.4(L) 32.0 - 35.7 g/dL [facility] Platelet 183 145 - 357 x10(3)/mc L [facility] RDW Standard Deviation 62.1(H) 36.0 - 45.[address] [facility] RDW coefficient of variation 20.3(H) 11.4 - 13.8 % [facility] Mean Platelet Volume 10.5 7.6 - 12.[address] [facility] NRBC% auto 0.0 % [facility] NRBC Absolute 0.000 0.000 - 0.000 x10(3)/mc L [facility] Blood 12/09/2022 12:3 0 AM EST 12/09/2022 12:50 AM EST Narrative Resulting Agency Comment Spec In Lab Augustin Lou MD HEMATOLOGY ORDERABLE S Performing Organization Address City/[facility]/ZIP Co de Phone Number [facility] [place] [address] * Phosphorus (12/09/2022 12:30 AM EST) Phosphorus 2.8 2.5 - 4.5 mg/dL [facility] Blood 12/09/2022 12:3 0 AM EST 12/09/2022 12:50 AM EST Narrative Resulting Agency Comment Spec In Lab Stu Padilla MD CHEMISTRY ORDERABLES Performing Organization Address [facility]/[place] Co de Phone Number [facility] [place] [address] * Magnesium (12/09/2022 12:30 AM EST) Magnesium 0.80 0.69 - 1.07 mmol/L [facility] Blood 12/09/2022 12:3 0 AM EST 12/09/2022 12:50 AM EST Narrative Resulting Agency Comment Spec In Lab Stu Padilla MD CHEMISTRY ORDERABLES Performing Organization Address [facility] Phone Number [facility] [place] [place] [address] * (ABNORMAL) Basic Metabolic Panel (non-fasting) (12/09/2022 12:30 AM EST) Glucose 151 65 - 199 mg/dL [facility] Comment:Diabetes: >=200 mg/d L plus symptoms Blood Urea Nitrogen 14 10 - 20 mg/dL [facility] Creatinine 0.88 0.80 - 1.50 mg/dL [facility] Sodium 142 135 - 145 mmol/L [facility] Potassium 3.7 3.5 - 5.0 mmol/L [facility] Comment: Please note: ??Patients with WBC >100,000 may have falsely elevated Potassium levels. ??For accurate Potassium quantification in these patients send serum separator tube (gold top) for subsequent determinations. ??Contact the Clinical Chemistry Laboratory if there are any questions. Chloride 109(H) 98 - 107 mmol/L [facility] Carbon Dioxide 22 22 - 31 mmol/L [facility] Anion Gap 11 5 - 15 mmol/L [facility] Calcium 8.5 8.5 - 10.5 mg/dL [facility] Est Glomerular Filtration Rate 87 >=60 mL/min/1. 73 m?? [facility] Comment: This patient's estimated [...] Padilla MD CHEMISTRY ORDERABLES Performing Organization Address [facility]/[place] Co de Phone Number [facility] [place] [address] * Type and Screen Validity (12/08/2022 5:51 PM EST) [facility] T&S only valid at [facility] LABORATORY Comment:This Type and Screen result is only valid at the [facility] Blood 12/08/2022 5:51 PM EST 12/08/2022 5:55 PM EST Narrative Resulting Agency Comment Spec In Lab Augustin Lou MD BLOOD BANK LAB ORDER NICK Performing Organization Address [facility]/[place] Co de Phone Number [facility] [place] [address] * ABORH Recheck Status (12/08/2022 5:51 PM EST) [facility] ABORH Type Recheck Completed [facility] Blood 12/08/2022 5:51 PM EST 12/08/2022 5:55 PM EST Narrative Resulting Agency Comment Spec In Lab Augustin Lou MD BLOOD BANK LAB ORDER NICK Performing Organization Address [facility]/[place] Co de Phone Number [facility] [place] [place] [address] * Differential, Automated (12/08/2022 5:51 PM EST) Pathologist [facility] Neutrophil % 62.4 % [facility] Neutrophil Absolute 4.12 1.70 - 6.10 x10(3)/[facility] [place] [facility] LABORATORY Lymph % 22.8 % [facility] Lymphocytes Abs 1.5 0.9 - 3.2 x10(3)/[facility] [place] [facility] Monocyte % 11.6 % [facility] Monocyte Abs 0.8 0.3 - 0.9 x10(3)/[facility] [place] [facility] Eos % 2.0 % [facility] Eosinophils Abs 0.1 0.0 - 0.4 x10(3)/[facility] [place] [facility] Basophil % 0.6 % [facility] Baso Absolute 0.0 0.0 - 0.1 x10(3)/[facility] [place] [facility] Immature Gran % 0.60 % [facility] Comment: Immature granulocytes(IG's)percentage and absolute count will include metamyelocytes, myelocytes, and promyelocytes. Blood smears from CBCs yielding IG's will be scanned manually for concordance. If this scan disagrees with the automated IG or if promyelocytes are noted, a manual differential will be performed. Immature Gran Absolute 0.04 0.00 - 0.04 x10(3)/[facility] [place] [facility] Blood 12/08/2022 5:51 PM EST 12/08/2022 5:57 PM EST Narrative Resulting Agency Comment Spec In Lab Augustin Lou MD HEMATOLOGY ORDERABLE S [facility] [place] [address] * (ABNORMAL) Hemogram (12/08/2022 5:51 PM EST) White Blood Cell 6.6 4.0 - 9.5 x10(3)/mc L [facility] Red Blood Cell 3.47(L) 4.58 - 5.54 x10(6)/ L [facility] Hemoglobin 9.4(L) 13.7 - 16.5 g/dL [facility] Hematocrit 29.9(L) 40.5 - 48.5 % [facility] Mean Cell Volume 86.2 82.9 - 93.1 fL [facility] Mean Cell Hemoglobin 27.1(L) 27.5 - 32.[address] [facility] Mean Cell Hemoglobin Concentration 31.4(L) 32.0 - 35.7 g/dL [facility] Platelet 184 145 - 357 x10(3)/mc L [facility] RDW Standard Deviation 62.3(H) 36.0 - 45.[address] [facility] RDW coefficient of variation 20.1(H) 11.4 - 13.8 % [facility] Mean Platelet Volume 10.9 7.6 - 12.[address] [facility] NRBC% auto 0.0 % [facility] NRBC Absolute 0.000 0.000 - 0.000 x10(3)/ L [facility] Blood 12/08/2022 5:51 PM EST 12/08/2022 5:57 PM EST Narrative Resulting Agency Comment Spec In Lab Augustin Lou MD HEMATOLOGY ORDERABLE S Performing Organization Address City/[facility]/ZIP Co de Phone Number [facility] [place] [address] * Antibody screen (12/08/2022 5:51 PM EST) Pathologist [facility] Ab Screen Interp Negative [facility] Expires at [id number] on: 12/11/2022 [facility] Blood 12/08/2022 5:51 PM EST 12/08/2022 5:55 PM EST Narrative Resulting Agency Comment Spec In Lab Augustin Lou MD BLOOD BANK LAB ORDER NICK [facility] [place] [place] [address] * ABO/Rh Typing (12/08/2022 5:51 PM EST) ABORH Type O Pos [facility] Blood 12/08/2022 5:51 PM EST 12/08/2022 5:55 PM EST Narrative Resulting Agency Comment Spec In Lab Augustin Lou MD BLOOD BANK LAB ORDER NICK Performing Organization Address City/[facility]/[place] Co de Phone Number [facility] [place] [address] * APTT (12/08/2022 5:51 PM EST) Partial Thromboplastin Time 28 25 - [address] [facility] Comment: The PTT is NOT appropriate for heparin monitoring. Use the Anti-Xa level for heparin monitoring (HEP UFH) or LMWH monitoring (HEP LMW). A PTT less than 37 seconds generally indicates adequate hemostasis. Blood 12/08/2022 5:51 PM EST 12/08/2022 5:57 PM EST Narrative Resulting Agency Comment Spec In Lab Stu Padilla MD HEMATOLOGY ORDERABLE S Performing Organization Address [facility] de Phone Number [facility] [place] [address] * (ABNORMAL) Prothrombin Time (12/08/2022 5:51 PM EST) Prothrombin Time 12.6(H) 9.4 - 12.[address] [facility] International Normalization Ratio 1.1 [facility] [facility] Comment: An INR <2.0 indicates [...] ORDERABLE S Performing Organization Address [facility] [employer] de Phone Number [facility] [place] [address] * Hepatic Function Panel (12/08/2022 5:51 PM EST) Protein, Total 6.1 6.1 - 8.0 g/dL [facility] Albumin 3.8 3.2 - 5.2 g/dL [facility] Aspartate Aminotransferase 14 0 - 39 unit/L [facility] Alanine Aminotransferase 20 0 - 55 unit/L [facility] Alkaline Phosphatase 86 40 - 130 unit/L [facility] Bilirubin, Total 1.2 0.2 - 1.3 mg/dL [facility] Bilirubin, Direct 0.2 0.0 - 0.3 mg/dL [facility] Blood 12/08/2022 5:51 PM EST 12/08/2022 5:57 PM EST Narrative Resulting Agency Comment Spec In Lab Stu Padilla MD CHEMISTRY ORDERABLES [facility] [place] [address] * (ABNORMAL) Basic Metabolic Panel (non-fasting) (12/08/2022 5:51 PM EST) Glucose 201(H) 65 - 199 mg/dL [facility] Comment:Diabetes: >=200 mg/d L plus symptoms Blood Urea Nitrogen 16 10 - 20 mg/dL [facility] Creatinine 0.87 0.80 - 1.50 mg/dL [facility] Sodium 138 135 - 145 mmol/L [facility] Potassium 4.0 3.5 - 5.0 mmol/L [facility] Comment: Please note: ??Patients with WBC >100,000 may have falsely elevated Potassium levels. ??For accurate Potassium quantification in these patients send serum separator tube (gold top) for subsequent determinations. ??Contact the Clinical Chemistry Laboratory if there are any questions. Chloride 107 98 - 107 mmol/L [facility] Carbon Dioxide 22 22 - 31 mmol/L [facility] Anion Gap 9 5 - 15 mmol/L [facility] Calcium 8.7 8.5 - 10.5 mg/dL [facility] Est Glomerular Filtration Rate 87 >=60 mL/min/1. 73 m?? [facility] Comment: This patient's estimated GFR [...] In Lab Stu Padilla MD CHEMISTRY ORDERABLES [facility] [place] [address] documented in this encounter Visit Diagnoses Not [...] Routine documented in this encounter Care Teams Vacuum Extractor Operator Relationship Specialty Start Date End Date Bobby Das MD [address] [place] [address] [place] [phone] PCP - General 10/02/10 documented as of this encounter
--- OUTSIDE RECORDS SUMMARY | 2024-09-30 12:08 | XMS_ITS | Encounter Summary ---
Author Organization [facility] Address [facility] [place] [address] Care Team Providers Care Fuel System Maintenance Supervisor Name Role Phone Bobby Das MD Primary Care Provider [phone] Reason for Visit * Consultation (Routine) - Closed Specialty Diagnoses / Procedures Referred By Colby quezada Referred To Contact Gastroenterology Diagnoses Adenomatous polyp of colon, unspecified part of colon Colonoscopy 06/25/22, discussed w/Dr. Ponce needs to be seen in clinic to discuss polyp / removal iso plavix & DOAC Systrom, Isi Mera MD [facility] [place] [address] [facility] [place] [address] [place] [address] Referral ID Status Reason Start Date Expiration Date V isits Requested Visits Authorized [id number] Closed Consult, Test & Treat 06/25/2022 06/25/2023 1 1 Encounter Details Date Type Department Care Team (Latest Contact Info) Description 11/18/2022 3:00 PM EST TH Visit (TeleHealth) [place] [address] Giovani Ponce MD [facility] [place] [address] Iron deficiency anemia due to [...] Ponce MD - 11/18/2022 3:00 PM EST [facility] Section of Gastroenterology and Hepatology Outpatient Consultation [facility] Gastroenterology Telephone Note Primary care provider: [...] beam coagulation. In August he presented to [facility] again with symptomatic anemia. One of the GI fellows was contacted via the transfer center (see note for details), and it looks as though we did not the hear back from [facility]. He is here today for a general [...] [facility] INTERVENTIONL RAD ??? PRO COLONOSCOPY, FLEX, W/CONTROL, BLEEDING N/A 06/25/2022 COLONOSCOPY; W CONTROL OF BLEEDING, ANY METHOD performed by Giovani Ponce MD at [facility] ENDOSCOPY ??? PRO EMBLC/THRMBC FEMORAL POPLITEAL AORTO-ILIAC ARTERY Left 05/15/2022 EMBOLECTOMY OR THROMBECTOMY, FEMOROPOPLITEAL, AORTOILIAC ARTERY BY LEG INCISION (WRVU 19.48) performed by Fito Summers MD at [facility] MAIN OR ??? PRO SMALL BOWEL ENDOSCOPY, PAST 2ND DUOD N/A 06/25/2022 SMALL BOWEL ENTEROSCOPY performed by Giovani Ponce MD at [facility] ENDOSCOPY ??? PRO UPPER GI ENDOSCOPY, CTRL BLEED 05/31/2022 EGD, W CONTROL OF BLEEDING, ANY METHOD performed by Giovani Ponce MD at [facility] ENDOSCOPY ??? PRO UPPER GI ENDOSCOPY, DIAGNOSTIC N/A 05/31/2022 EGD, UPPER GI ENDOSCOPY performed by Giovani Ponce MD at [facility] ENDOSCOPY ??? PRO UPPER GI ENDOSCOPY, DIAGNOSTIC N/A 06/25/2022 EGD, UPPER GI ENDOSCOPY performed by Giovani Ponce MD at [facility] ENDOSCOPY Social History: reports that he quit [...] 12 ??? fluticasone propionate (FLONASE) 50 mcg/actuation [place], Suspension 1 spray by Each Nare route [...] Giovani Ponce MD CC Bobby Das MD [address] [place] [address] [place] [phone] SystromIsi MD [facility] [place] [address] Gastroenterology Section [facility] documented in this encounter Plan of Treatment Scheduled Referrals Name Type Priority Associated Diagnoses Order Schedule Referral to Gastroenterology Outpatient Referral Routine Adenomatous polyp of colon, unspecified part of colon Ordered: 06/25/2022 documented as of this encounter Visit Diagnoses Diagnosis Iron deficiency anemia due to chronic blood loss Iron deficiency anemia secondary to blood loss (chronic) documented in this encounter Care Teams Fuel System Maintenance Supervisor Relationship Specialty Start Date End Date Bobby Das MD [address] [place] [address] [place] [phone] PCP - General 10/02/10 documented as of this encounter
--- OUTSIDE RECORDS SUMMARY | 2024-09-30 12:08 | XMS_ITS | Encounter Summary ---
[place] [address] Care Team Providers Care Oil Field Pipeline Supervisor Name Role Phone Bobby Das MD Primary Care Provider [phone] Reason for Visit * Auth/Cert (Routine) Specialty Diagnoses / Procedures Referred By Colby quezada Referred To Contact Diagnoses GI bleed gi [place] [address] [facility] Referral ID Status Reason Start Date Expiration Date Visits Re quested Visits Authorized [id number] 1 1 Encounter Details Date Type Department Care Team (Late st Contact Info) Description 12/09/2022 11:17 AM EST Anesthesia [place] [address] Fernando Boyce MD [facility] DR [place] [address] Anesthesia Record Procedure Summary Procedure Name Responsible [...] Procedure Summary Date: 12/09/22 Room / Location: [facility] ENDO 3 / [facility] ENDOSCOPY Anesthesia Start: 1117 Anesthesia Stop: 1209 Procedure: COLONOSCOPY, DIAGNOSTIC (Trunk) Diagnosis: (hematochezia) Surgeons: Giovani Ponce MD Responsible Provider: Fernando Boyce MD Anesthesia Type: MAC ASA Status: 3 All Anesthesia Providers: Anesthesiologist: Fernando Boyce MD DUNGEON MASTER: Kourtney Rosenberg CRNA Vitals Value Taken Time BP 96/63 12/09/22 1226 Temp Pulse 68 12/09/22 1227 Resp 17 12/09/22 1227 SpO2 100 % 12/09/22 1227 Pain Level 0 12/09/22 1223 Vitals shown include unvalidated device data. Patient Location: PACU/[facility] Level of Consciousness: Conscious but Sleepy Pain [...] bleed 12/08/2022 ??? Coronary artery disease involving [place] coronary artery of [place] heart without angina pectoris 06/13/2022 ??? HFrEF [...] [facility] INTERVENTIONL RAD ??? PRO COLONOSCOPY, FLEX, W/CONTROL, BLEEDING N/A 06/25/2022 COLONOSCOPY; W CONTROL OF BLEEDING, ANY METHOD performed by Giovani Ponce MD at [facility] ENDOSCOPY ??? PRO EMBLC/THRMBC FEMORAL POPLITEAL AORTO-ILIAC ARTERY Left 05/15/2022 EMBOLECTOMY OR THROMBECTOMY, FEMOROPOPLITEAL, AORTOILIAC ARTERY BY LEG INCISION (WRVU 19.48) performed by Fito Summers MD at [facility] MAIN OR ??? PRO SMALL BOWEL ENDOSCOPY, PAST 2ND DUOD N/A 06/25/2022 SMALL BOWEL ENTEROSCOPY performed by Giovani Ponce MD at [facility] ENDOSCOPY ??? PRO UPPER GI ENDOSCOPY, CTRL BLEED 05/31/2022 EGD, W CONTROL OF BLEEDING, ANY METHOD performed by Giovani Ponce MD at [facility] ENDOSCOPY ??? PRO UPPER GI ENDOSCOPY, DIAGNOSTIC N/A 05/31/2022 EGD, UPPER GI ENDOSCOPY performed by Giovani Ponce MD at [facility] ENDOSCOPY ??? PRO UPPER GI ENDOSCOPY, DIAGNOSTIC N/A 06/25/2022 EGD, UPPER GI ENDOSCOPY performed by Giovani Ponce MD at [facility] ENDOSCOPY Social History Tobacco Use [...] risks discussed with patient. Plan discussed with DUNGEON MASTER and attending. Anesthesia Screening documented in this [...] mg documented in this encounter Care Teams Oil Field Pipeline Supervisor Relationship Specialty Start Date End Date Bobby Das MD [address] [place] [address] [place] [address] PCP - General 10/02/10 documented as of this encounter
--- OUTSIDE RECORDS SUMMARY | 2024-09-30 12:08 | XMS_ITS | Encounter Summary ---
Author Organization [place] [address] Care Team Providers Care Vehicle Insurance Agent Name Role Phone Bobby Das MD Primary Care Provider [phone] Reason for Referral * Consultation (Routine) - Closed Specialty Diagnoses / Procedures Referred By Contact Referred To Contact Electrophysiology / Cardiology Diagnoses HFrEF (heart failure with reduced ejection fraction) EF=30%, poss. ICD vs CUFFER-D Alan Reid MD [facility] [place] [address] [facility] [address] [place] [phone] Referral ID Status Reason Start Date Expiration Date V isits Requested Visits Authorized [id number] Closed Consult, Test & Treat 09/05/2022 09/05/2023 1 1 Encounter Details Date Type Department Care Team (Late st Contact Info) Description 09/05/2022 2:00 PM EDT Office Visit Cardiology at [address] [address] Alan Reid MD [facility] [place] [address] HFrEF (heart failure with reduced ejection fraction); Permanent atrial fibrillation; Coronary artery disease involving [place] coronary artery of [place] heart without angina pectoris Social History Tobacco [...] included. [facility] [place] [address] CARDIOLOGY OUTPATIENT PROGRESS NOTE PRIMARY CARE PROVIDER: Bobby Das MD REFERRING PROVIDER: Bobby Das PROBLEM LIST: Patient Active Problem List Diagnosis ??? Coronary artery disease involving [place] coronary artery of [place] heart without angina pectoris 05/20/22 Cath * [...] valve prolapse) s/p repair Surgery done at [facility] in 2000 ??? Hypertriglyceridemia ??? [...] 1 ??? fluticasone propionate (FLONASE) 50 mcg/actuation [place], Suspension 1 spray by Each Nare route [...] Abdomen: Nondistended. Soft. Nontender. Extremities: No edema. SPINNING MULE TENDER: Normal mentation. Psych: Appropriate affect. Labs: Lab [...] fraction this is a borderline indication for CUFFER-D. Alfred going to set up an appointment [...] for thromboembolic complications. Coronary artery disease involving [place] coronary artery of [place] heart without angina pectoris His coronary disease [...] EDT Associated Problem(s): Coronary artery disease involving [place] coronary artery of [place] heart without angina pectoris His coronary disease [...] fraction this is a borderline indication for CUFFER-D. Alfred going to set up an appointment [...] fibrillation Atrial fibrillation Coronary artery disease involving [place] coronary artery of [place] heart without angina pectoris documented in this encounter Care Teams Vehicle Insurance Agent Relationship Specialty Start Date End Date Bobby Das MD [address] [place] [address] [place] [phone] PCP - General 10/02/10 documented as of this encounter
--- OUTSIDE RECORDS SUMMARY | 2024-09-30 12:08 | XMS_ITS | Encounter Summary ---
Author Organization [facility] Address [facility] [place] [address] Care Team Providers Care Breaker Up Machine Operator Name Role Phone Bobby Das MD Primary Care Provider [phone] Encounter Details Date Type Department Care Team (Late st Contact Info) Description 10/16/2022 2:45 PM EST Office Visit Dermatology at [address] [phone] Jace Lynn MD [facility] [place] [address] Basal cell carcinoma (BCC) of eyebrow; Basal [...] Basal Cell Carcinoma Site: Right Eyebrow Repair: Winston Transposition Flap Surgery date: 10/02/2022 Site # 2 Tumor type: Basal Cell Carcinoma Site: Right Nasal Ala Repair: Full Thickness Ski Graft Surgery date: 10/02/2022 Today, the patient reports I had bleeding on the way home and went to the [facility] Emergency Patient I put vaseline on it [...] nose documented in this encounter Care Teams Breaker Up Machine Operator Relationship Specialty Start Date End Date Bobby Das MD [address] [place] [address] [place] [phone] PCP - General 10/02/10 documented as of this encounter
--- OUTSIDE RECORDS SUMMARY | 2024-09-30 12:08 | XMS_ITS | Encounter Summary ---
Author Organization [facility] Address [facility] [place] [address] Care Team Providers Care Brewmaster Name Role Phone Bobby Das MD Primary Care Provider [phone] Reason for Referral * Consultation (Urgent) - Closed Specialty Diagnoses / Procedures Referred By Colby quezada Referred To Contact Dermatology Diagnoses Basal cell carcinoma (BCC), unspecified site Bobby Das MD [address] [place] [address] [place] [address] [facility] Dermatology [address] [place] [address] Referral ID Status Reason Start Date Expiration Date V isits Requested Visits Authorized [id number] Closed Consult, Test & Treat PCP Updated and/or Approved 06/12/2023 06/11/2024 6 6 Encounter Details Date Type Department Care Team (Latest Contact Info) Description 06/12/2023 Transcribe Orders eDH Incoming Referrals [phone] Bobby Das MD [address] [place] [address] [place] [phone] Basal cell carcinoma (BCC), unspecified site [...] site documented in this encounter Care Teams Brewmaster Relationship Specialty Start Date End Date Bobby Das MD [address] [place] [address] [place] [phone] PCP - General 10/02/10 documented as of this encounter
--- OUTSIDE RECORDS SUMMARY | 2024-09-30 12:08 | XMS_ITS | Encounter Summary ---
[place] [address] Care Team Providers Care Hand Funnel Coater Name Role Phone Bobby Das MD Primary Care Provider [phone] Reason for Visit * Auth/Cert (Routine) Specialty Diagnoses / Procedures Referred By Colby quezada Referred To Contact Diagnoses GI bleed gi [place] [address] [facility] Referral ID Status Reason Start Date Expiration Date Visits Re quested Visits Authorized [id number] 1 1 Encounter Details Date Type Department Care Team (Latest Contact Info) Description 12/08/2022 4:21 PM EST - 12/12/2022 4:00 PM [facility] Hospital Encounter Intermediate [place] [address] [place] [address] [place] [address] Gastrointestinal hemorrhage, unspecified gastrointestinal hemorrhage type; 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 Coronary artery disease involving [place] coronary artery of [place] heart without angina pectoris 05/20/22 Cath [...] valve prolapse) s/p repair Surgery done at [facility] in 2000 ??? Hypertriglyceridemia ??? [...] in 05/31 presenting in transfer from [facility] for hematochezia. ?? Mr. Zamora first had [...] at which point he presented to [facility] for further workup. ?? Per report, patient [...] further management. Primary Team Inpatient Physicians at [facility] was: Attending Physician(s): Aristides Hinds MD Resident(s): Augustin Lou MD; Remigio Morel MD Inpatient Provider Contact Information: If you have questions about this document please contact the [facility] annealing furnace operator at and ask for one of [...] Procedure Component Value - Date/Time COVID-19 PCR [[id number]] Collected: 12/12/22611 Lab Status: Final result Specimen: [...] using the Simplexa COVID-19 Direct Assay by [employer] as authorized by the FDA issued Emergency [...] Department of Pathology and Laboratory Medicine at [facility], certified under the Clinical Laboratory Improvement Amendments [...] fact sheets at the following FDA website: https://www.fda.gov/medical-devices/hrgsoerpmvo-tmaibwh-8208-wwvhv-57-dzoofudwm- mvz-kwitdkjfgxaelw-zytgpkx-devices/alcmp-ywquwnurxyn-rvxt SARS-CoV-2 Source INSPECTOR FINAL ASSEMBLY ELECTRICAL Swab Microbiology Results (last 6 months) Procedure Component Value - Date/Time COVID-19 PCR [[id number]] Collected: 12/12/22611 Lab Status: Final result Specimen: [...] diagnosis of COVID-19 is performed using the Vmedia Researcha COVID-19 Direct Assay by [employer] as authorized by the FDA issued Emergency [...] Department of Pathology and Laboratory Medicine at [facility], certified under the Clinical Laboratory Improvement Amendments [...] fact sheets at the following FDA website: https://www.fda.gov/medical-devices/zhrjmrmkiwo-poyfyqm-3590-vaxkb-89-xyjfgwrue- sih-vzscccmwnmupgz-uqvrhdt-devices/afmjg-ohlpngkfajo-bdyh SARS-CoV-2 Source INSPECTOR FINAL ASSEMBLY ELECTRICAL Swab Diagnostic Studies: Colonoscopy (12/09): Impression: ? [...] Center 05/27/2023 11:00 AM Giovani Ponce MD [facility] GASTRO [facility] 12/16/2022 11:[address] Bobby Reilly [facility] [place] Your Inpatient Doctor: MD Aristides Hughes MD Aditya Sharma, MD Your Primary Care Provider: Bobby Das MD [phone] For questions regarding this document or issues relating to this hospitalization on the Medical Service, please contact your inpatient physician through the [facility] Button Grader . Issues afterhours and on weekends will [...] occurs, please contact your Doctor. Please call [phone] before 8pm Mon-Fri with problems, questions or concerns. If you call after 8pm or on weekends, call the Hospital at [phone] and ask to speak to the Support [employer] relocation counselor and the annealing furnace operator will contact that person for you. When should you call for help? Call [phone] anytime you think you may need emergency [...] Where can you learn more? [facility] View your After Visit Summary and more online at [email or web address] If you would like to provide feedback about your hospital experience, please call the Office of Patient and Family Relations at . If you have received this After Visit Summary in error, please immediately return it in person to the department, or notify the [facility] Privacy Office by calling toll free at between the hours of 8AM and 5PM to arrange for our retrieval of the documents at no cost to you. Content Version: 12.2 ?? [id number] [employer]. Care instructions adapted under license by [facility]. If you have questions about a medical condition or this instruction, always ask your healthcare professional. [employer] disclaims any warranty or liability for your use of this information. Discharge References/Attachments None To-Do List To-Do List Future Appointments Provider Department Dept Phone 05/27/2023 11:00 AM Giovani Ponce MD Gastroenterology at [facility] Arrive at: It Sales Executive Area [phone] Future Orders Complete By Expires CBC (with Diff) [[id number] Custom] 12/19/2022 (Approximate) 06/20/2023 Process Instructions: Scheduling Instructions: Comments: Questions: Provider Contact Information: Bobby Das MD [address] [place] [address] / [facility] [id number] Signed: Remigio Morel MD Discharged: [...] occurs, please contact your Doctor. Please call [phone] before 8pm Mon-Fri with problems, questions or concerns. If you call after 8pm or on weekends, call the Hospital at [phone] and ask to speak to the Support [employer] relocation counselor and the annealing furnace operator will contact that person for you. When should you call for help? Call [phone] anytime you think you may need emergency [...] Where can you learn more? [facility] View your After Visit Summary and more online at [email or web address] If you would like to provide feedback about your hospital experience, please call the Office of Patient and Family Relations at . If you have received this After Visit Summary in error, please immediately return it in person to the department, or notify the [facility] Privacy Office by calling toll free at between the hours of 8AM and 5PM to arrange for our retrieval of the documents at no cost to you. Content Version: 12.2 ?? [id number] [employer]. Care instructions adapted under license by [facility]. If you have questions about a medical condition or this instruction, always ask your healthcare professional. [employer] disclaims any warranty or liability for your [...] Provider Department Center 05/27/2023 11:00 AM Giovani Ponec MD [facility]STRO [facility] 12/16/2022 11:[address] Bobby Reilly [facility] Primary [facility] [place] Your Inpatient Doctor: MD Aristides Hughes MD Aditya Sharma, MD Your Primary Care Provider: Bobby Das MD [phone] For questions regarding this document or issues relating to this hospitalization on the Medical Service, please contact your inpatient physician through the [facility] Button Grader . Issues afterhours and on weekends will be handled by the Hospitalist staff on-call. documented in this encounter Medications at Time of Discharge Medication Sig Dispensed Refills Start Date End Date apixaban (Eliquis) 2.5 mg Tablet Take 1 tablet by mouth 2 times daily. 60 tablet 3 12/12/2022 fluticasone propionate (FLONASE) 50 mcg/actuation [place], Suspension 1 spray by Each Nare route [...] Problems Diagnosis ??? Coronary artery disease involving bir[place] creek coronary artery of [place] heart without angina pectoris ??? HFrEF (heart [...] spent >30 minutes (Day of Discharge Code 58519) involved in the final examination of the [...] IR Biopsy Spine 07/20/2019 Bobby Marshall MD [facility] INTERVENTIONL RAD ??? IR VERTEBROPLASTY LUMBAR MULTIPLE LEVELS 07/20/2019 IR Vertebroplasty Lumbar Multiple Levels 07/20/2019 Bobby Marshall MD [facility] INTERVENTIONL RAD ??? IR VERTEBROPLASTY THORACIC SINGLE LEVEL 10/25/2020 IR Vertebroplasty Thoracic Single Level 10/25/2020 Matt Chisholm MD [facility] INTERVENTIONL RAD ??? PRO COLONOSCOPY, DIAGNOSTIC N/A 12/09/2022 COLONOSCOPY, DIAGNOSTIC performed by Giovani Ponce MD at [facility] ENDOSCOPY ??? PRO COLONOSCOPY, FLEX, W/CONTROL, BLEEDING N/A 06/25/2022 COLONOSCOPY; W CONTROL OF BLEEDING, ANY METHOD performed by Giovani Ponce MD at [facility] ENDOSCOPY ??? PRO EMBLC/THRMBC FEMORAL POPLITEAL AORTO-ILIAC ARTERY Left 05/15/2022 EMBOLECTOMY OR THROMBECTOMY, FEMOROPOPLITEAL, AORTOILIAC ARTERY BY LEG INCISION (WRVU 19.48) performed by Fito Summers MD at [facility] MAIN OR ??? PRO SMALL BOWEL ENDOSCOPY, PAST 2ND DUOD N/A 06/25/2022 SMALL BOWEL ENTEROSCOPY performed by Giovani Pnoce MD at [facility] ENDOSCOPY ??? PRO UPPER GI ENDOSCOPY, CTRL BLEED 05/31/2022 EGD, W CONTROL OF BLEEDING, ANY METHOD performed by Giovani Ponce MD at [facility] ENDOSCOPY ??? PRO UPPER GI ENDOSCOPY, DIAGNOSTIC N/A 05/31/2022 EGD, UPPER GI ENDOSCOPY performed by Giovani Ponce MD at [facility] ENDOSCOPY ??? PRO UPPER GI ENDOSCOPY, DIAGNOSTIC N/A 06/25/2022 EGD, UPPER GI ENDOSCOPY performed by Giovani Ponce MD at [facility] END[facility] Social History: Patient lives with his [...] and measurable assessment of functional outcome. Pager: [phone] EVELIA COVINGTON OT 12/12/2022 Occupational Therapy Rehabilitation Department * Remigio Morel MD - 12/11/2022 7:02 AM EST [facility] Inpatient Progress Note Date: 12/11/22 Patient Information: Koko Zamora [id number] 1940 PCP: Bobby Das MD PCP Admit [...] Gas) No results found for: PHART, PO2ART, IFE2TSG, DEK7FXH Microbiology: Microbiology Results (Last 30 days) No [...] 12/11/22 7:02 AM Internal Medicine, PGY-1 Pager: [phone] Associated attestation - Aristides Hinds MD - [...] or is on the [facility] inpatient only procedure list (status C) due [...] Morel MD - 12/10/2022 8:01 AM EST [facility] Inpatient Progress Note Date: 12/10/22 Patient Information: Koko Zamora [id number] 1940 PCP: Bobby Das MD PCP Admit [...] Gas) No results found for: PHART, PO2ART, DIZ2VZH, JYI2VJA Microbiology: Microbiology Results (Last 30 days) No [...] 12/10/22 10:46 AM Internal Medicine, PGY-1 Pager: [phone] Associated attestation - Aristides Hinds MD - [...] or is on the [facility] inpatient only procedure list (status C) due [...] OSH w/recurrent symptomatic anemia now transferred to [facility] for further care. INTERVAL: - Completed prep [...] w/recurrent sympto matic anemia now transferred to [facility] for further care. With reported hematochezia, the [...] Morel MD - 12/09/2022 6:14 AM EST [facility] Inpatient Progress Note Date: 12/09/22 Patient Information: Koko Zamora [id number] PCP: Bobby Das MD PCP Admit [...] Gas) No results found for: PHART, PO2ART, CFY7SLZ, JKB9UJV Microbiology: Microbiology Results (Last 30 days) No [...] receiving 2 units of pRBCs at [facility]. Will continue IV PPI BID, keep him [...] 12/09/22 6:14 AM Internal Medicine, PGY-1 Pager: [phone] Associated attestation - Aristides Hinds MD - [...] or is on the [facility] inpatient only procedure list (status C) due [...] ischemia I99.8 ??? Coronary artery disease involving bir[place] creek coronary artery of [place] heart without angina pectoris I25.10 ??? HFrEF [...] PCP: Bobby Das MD PCP phone number: [phone] Date of Admission: 12/08/2022 ( Hospital Day [...] in 05/31 presenting in transfer from [facility] for hematochezia. Mr. Zamora first had an [...] at which point he presented to [facility] for further workup. Per report, patient demonstrated [...] month ??? fluticasone propionate (FLONASE) 50 mcg/actuation [place], Suspension 1 spray by Each Nare route [...] receiving 2 units of pRBCs at [facility]. Will plan on starting IV PPI BID, [...] Status: Full Augustin Lou MD, PGY-2 12/08/2022 [facility] Medicine Blue Team #[id number] Associated attestation - Aristides Hinds MD - [...] type* / Secondary Insurance: [facility] Prescription Coverage: Yes This plan was formulated with input from patient, Koko and team. All are in agreement with plan. Referral made to [facility] RS. Do Cuadra RN [phone] Pager [phone] * Plan of Care - Luann Barrientos [...] surrogate would be surrogate decision maker per [place] decision making law. (Only good for 180 days) Spouse Ursula Any patient receiving care in [place] must abide by [place] law. The hierarchy for surrogate decision making [...] (i) The agent with financial power of keyseater operator or a conservator appointed in accordance [...] Current DME: none Home Address confirmed as: [address] [place] [phone] Social & Family Supports: All names listed below confirmed with patient as current and correct Extended Emergency Contact Information Primary Emergency Contact: Ursula Zamora Address: [address] [place] [phone] [facility] Relation: Spouse [...] *No Product type* / Secondary Insurance: MICHELLE [employer] ONLY if patient has Medicare A&B - Does this patient have secondary insurance?: Yes ; Prescription Coverage: Yes Preferred Pharmacy: [id number] [address] [place] Status: Patient is a : No Primary Care Provider confirmed: Bobby Das MD [phone] Patient/Caregiver Goals of Treatment: Return home Potential Needs for Transition of Care: none Agency Referrals: Not Applicable Transportation: no concerns Transportation Anticipated: family or friend will provide Concerns to be Addressed: no discharge needs identified Assessment: Patient is admitted to [facility] service for GIB Plan: The patient alert [...] with transition of care planning. Tiffanie Patton [facility] [phone] * Plan of Care - Matt Raya [...] Box MD - 12/09/2022 5:35 PM EST [facility] Department of Cardiology Initial Consult Note Patient: Kkoo Zamora Primary Care: Bobby Das MD : 1940 Referring Provider: Giulia Xavier Date of service: 12/09/2022 Reason for consult: anticoagulation management in setting of GIB HISTORY OF PRESENT ILLNESS Koko Zamora is a 82 y.o. male with history of pre-diabetes, hyperlipidemia, mitral valve prolapse s/p MV repair in [place] in 2000, alcohol use disorder, duodenal & [...] IR Biopsy Spine 07/20/2019 Bobby Marshall MD [facility] INTERVENTION[facility] RAD ??? IR VERTEBROPLASTY LUMBAR MULTIPLE LEVELS 07/20/2019 IR Vertebroplasty Lumbar Multiple Levels 07/20/2019 Bobby Marshall MD [facility] INTERVENTIONL RAD ??? IR VERTEBROPLASTY THORACIC SINGLE LEVEL 10/25/2020 IR Vertebroplasty Thoracic Single Level 10/25/2020 Matt Chisholm MD [facility] INTERVENTIONL RAD ??? PRO COLONOSCOPY, FLEX, W/CONTROL, BLEEDING N/A 06/25/2022 COLONOSCOPY; W CONTROL OF BLEEDING, ANY METHOD performed by Giovani Ponce MD at [facility] END[facility]COPY ??? PRO EMBLC/THRMBC FEMORAL POPLITEAL AORTO-ILIAC ARTERY Left 05/15/2022 EMBOLECTOMY OR THROMBECTOMY, FEMOROPOPLITEAL, AORTOILIAC ARTERY BY LEG INCISION (WRVU 19.48) performed by Fito Summers MD at [facility] MAIN OR ??? PRO SMALL BOWEL ENDOSCOPY, PAST 2ND DUOD N/A 06/25/2022 SMALL BOWEL ENTEROSCOPY performed by Giovani Ponce MD at [facility] END[facility]COPY ??? PRO UPPER GI ENDOSCOPY, CTRL BLEED 05/31/2022 EGD, W CONTROL OF BLEEDING, ANY METHOD performed by Giovani Ponce MD at [facility] END[facility] ??? PRO UPPER GI ENDOSCOPY, DIAGNOSTIC N/A 05/31/2022 EGD, UPPER GI ENDOSCOPY performed by Giovani Ponce MD at [facility] END[facility]COPY ??? PRO UPPER GI ENDOSCOPY, DIAGNOSTIC N/A 06/25/2022 EGD, UPPER GI ENDOSCOPY performed by Giovani Ponce MD at [facility] MEDICATIONS AND ALLERGIES Outpatient Medications Marked [...] mitral valve prolapse s/p MV repair in [place] in 2000, alcohol use disorder, duodenal & [...] page if further consultation required. Chino Mckeon Table Attendant, PGY4 [phone] STAFF ADDENDUM Patient interviewed and [...] to contact patient to complete I/A. Per hospital staff pharmacist, patient is asleep. Do Cuadra RN CM [phone] Pager [phone] * Op Note - Giovani Ponce MD - 12/09/2022 11:26 AM EST DH Operative Note Patient Name: Koko Zamora : [id number] MR#: [id number] Case Date: 12/09/2022 Surgeon: Surgeon(s) and Role: [...] OSH w/recurrent symptomatic anemia now transferred to [facility] for further care. At [facility], he noted he was passing bright red blood and strings of clots. Given this, paired with him feeling light-headed, [facility] felt he needed to be in tertiary [...] IR Biopsy Spine 07/20/2019 Bobby Marshall MD [facility] INTERVENTIONL RAD ??? IR VERTEBROPLASTY LUMBAR MULTIPLE LEVELS 07/20/2019 IR Vertebroplasty Lumbar Multiple Levels 07/20/2019 Bobby Marshall MD [facility] INTERVENTIONL RAD ??? IR VERTEBROPLASTY THORACIC SINGLE LEVEL 10/25/2020 IR Vertebroplasty Thoracic Single Level 10/25/2020 Matt Chisholm MD [facility] INTERVENTIONL RAD ??? PRO COLONOSCOPY, FLEX, W/CONTROL, BLEEDING N/A 06/25/2022 COLONOSCOPY; W CONTROL OF BLEEDING, ANY METHOD performed by Giovani Ponce MD at [facility] ENDOSCOPY ??? PRO EMBLC/THRMBC FEMORAL POPLITEAL AORTO-ILIAC ARTERY Left 05/15/2022 EMBOLECTOMY OR THROMBECTOMY, FEMOROPOPLITEAL, AORTOILIAC ARTERY BY LEG INCISION (WRVU 19.48) performed by Fito Summers MD at [facility] MAIN OR ??? PRO SMALL BOWEL ENDOSCOPY, PAST 2ND DUOD N/A 06/25/2022 SMALL BOWEL ENTEROSCOPY performed by Giovani Ponce MD at [facility] ENDOSCOPY ??? PRO UPPER GI ENDOSCOPY, CTRL BLEED 05/31/2022 EGD, W CONTROL OF BLEEDING, ANY METHOD performed by Giovani Ponce MD at [facility] ENDOSCOPY ??? PRO UPPER GI ENDOSCOPY, DIAGNOSTIC N/A 05/31/2022 EGD, UPPER GI ENDOSCOPY performed by Giovani Ponce MD at [facility] END[facility]COPY ??? PRO UPPER GI ENDOSCOPY, DIAGNOSTIC N/A 06/25/2022 EGD, UPPER GI ENDOSCOPY performed by Giovani Ponce MD at [facility] SOCIAL HX: Social History Socioeconomic History [...] month ??? fluticasone propionate (FLONASE) 50 mcg/actuation [place], Suspension 1 spray by Each Nare route [...] appropriate affect Labs: Labs personally reviewed in [facility] CBC: Recent Labs 12/08/22 1751 WBC 6.6 [...] IMAGING: Reports and images personally reviewed in [facility]. Images independently interpreted. No orders to display ENDOSCOPY: Reports and images personally reviewed in [facility] Colonoscopy 06/2022: Impression: ?- The examined portion [...] OSH w/recurrent symptomatic anemia now transferred to [facility] for further care. On meeting pt and [...] NPO other than prep/meds with sips. At [place], patient should be strict NPO. - Night [...] 12/12/2022 8:19 AM EST RAPID COVID-19 PCR ([facility]ALTH [facility]) Routine 12/12/2022 6:12 AM EST BASIC METABOLIC [...] Routine 12/09/2022 11:22 AM EST Colonoscopy, Diagnostic ([id number]) 12/09/2022 11:18 AM EST hematochezia HEMOGRAM Routine [...] Cell 5.6 4.0 - 9.5 x10(3)/mc L [facility] Red Blood Cell 3.62(L) 4.58 - 5.54 x10(6)/mc L [facility] Hemoglobin 9.7(L) 13.7 - 16.5 g/dL [facility] Hematocrit 31.0(L) 40.5 - 48.5 % [facility] Mean Cell Volume 85.6 82.9 - 93.1 fL [facility] Mean Cell Hemoglobin 26.8(L) 27.5 - 32.1 pg [facility] Mean Cell Hemoglobin Concentration 31.3(L) 32.0 - 35.7 g/dL [facility] Platelet 180 145 - 357 x10(3)/mc L [facility] RDW Standard Deviation 59.0(H) 36.0 - 45.0 fL [facility] RDW coefficient of variation 18.6(H) 11.4 - 13.8 % [facility] Mean Platelet Volume 10.7 7.6 - 12.9 fL [facility] NRBC% auto 0.0 % [facility] NRBC Absolute 0.000 0.000 - 0.000 x10(3)/mc L [facility] Blood 12/12/2022 8:19 AM EST 12/12/2022 8:58 AM EST Narrative Resulting Agency Comment Spec In Lab Aristides Hinds MD HEMATOLOGY ORDERAB LES [facility] [place] [address] * COVID-19 PCR (12/12/2022 6:12 AM EST) SARS-CoV-2 RNA (Rapid) Not Detected Not Detected [facility] Comment: This result should be interpreted [...] using the Simplexa COVID-19 Direct Assay by [employer] as authorized by the FDA issued Emergency [...] Department of Pathology and Laboratory Medicine at [facility], certified under the Clinical Laboratory Improvement Amendments [...] fact sheets at the following FDA website: https://www.fda.gov/medical-devices/dxitmlopkxr-iapahvz-6480-gwpop-94-vzbxqklmp- use-a ixmojwyuwhrmj-pgqipkx-rjkyopa/fuque-belhezwoefp-nyrz SARS-CoV-2 Source INSPECTOR FINAL ASSEMBLY ELECTRICAL Swab [facility] Nasopharyngeal Swab 12/12/19 6:12 AM EST 12/12/2022 6:26 AM EST Comment:Specimen Source->Juanito opharyngeal Swab Narrative Resulting Agency Comment Spec In Lab Stu Padilla MD MICROBIOLOGY - GENER AL ORDERABLES [facility] [place] [address] * (ABNORMAL) Basic Metabolic Panel (non-fasting) (12/12/2022 12:30 AM EST) Glucose 283(H) 65 - 199 mg/dL [facility] Comment:Diabetes: >=200 mg/d L plus symptoms Blood Urea Nitrogen 15 10 - 20 mg/dL [facility] Creatinine 0.92 0.80 - 1.50 mg/dL [facility] Sodium 141 135 - 145 mmol/L [facility] Potassium 3.9 3.5 - 5.0 mmol/L [facility] Comment: Please note: ??Patients with WBC >100,000 may have falsely elevated Potassium levels. ??For accurate Potassium quantification in these patients send serum separator tube (gold top) for subsequent determinations. ??Contact the Clinical Chemistry Laboratory if there are any questions. Chloride 107 98 - 107 mmol/L [facility] Carbon Dioxide 24 22 - 31 mmol/L [facility] Anion Gap 10 5 - 15 mmol/L [facility] Calcium 8.7 8.5 - 10.5 mg/dL [facility] Est Glomerular Filtration Rate 84 >=60 mL/min/1. 73 m?? [facility] Comment: This patient's estimated GFR was [...] MD CHEMISTRY ORDERABL ES Performing Organization Address City/State/[facility] Co de Phone Number [facility] [place] [address] * (ABNORMAL) Differential, Automated (12/11/2022 4:45 AM EST) Neutrophil % 64.0 % [facility] Neutrophil Absolute 5.22 1.70 - 6.10 x10(3)/mc L [facility] Lymph % 21.5 % [facility] Lymphocytes Abs 1.8 0.9 - 3.2 x10(3)/mc L [facility] Monocyte % 12.1 % [facility] Monocyte Abs 1.0(H) 0.3 - 0.9 x10(3)/mc L [facility] Eos % 1.6 % [facility] Eosinophils Abs 0.1 0.0 - 0.4 x10(3)/mc L [facility] Basophil % 0.4 % [facility] Baso Absolute 0.0 0.0 - 0.1 x10(3)/mc L [facility] Immature Gran % 0.40 % [facility] Comment: Immature granulocytes(IG's)percentage and absolute count will include metamyelocytes, myelocytes, and promyelocytes. Blood smears from CBCs yielding IG's will be scanned manually for concordance. If this scan disagrees with the automated IG or if promyelocytes are noted, a manual differential will be performed. Immature Gran Absolute 0.03 0.00 - 0.04 x10(3)/mc L [facility] Blood 12/11/2022 4:45 AM EST 12/11/2022 6:48 AM EST Narrative Resulting Agency Comment Spec In Lab Augustin Lou MD HEMATOLOGY ORDERABLE S Performing Organization Address City/State/[facility] Co de Phone Number [facility] [place] [address] * (ABNORMAL) Hemogram (12/11/2022 4:45 AM EST) White Blood Cell 8.2 4.0 - 9.5 x10(3)/mc L [facility] Red Blood Cell 3.57(L) 4.58 - 5.54 x10(6)/mc L [facility] Hemoglobin 9.4(L) 13.7 - 16.5 g/dL [facility] Hematocrit 30.6(L) 40.5 - 48.5 % [facility] Mean Cell Volume 85.7 82.9 - 93.1 fL [facility] Mean Cell Hemoglobin 26.3(L) 27.5 - 32.1 pg [facility] Mean Cell Hemoglobin Concentration 30.7(L) 32.0 - 35.7 g/dL [facility] Platelet 185 145 - 357 x10(3)/mc L [facility] RDW Standard Deviation 60.1(H) 36.0 - 45.0 fL [facility] RDW coefficient of variation 19.4(H) 11.4 - 13.8 % [facility] Mean Platelet Volume 11.3 7.6 - 12.9 fL [facility] NRBC% auto 0.0 % [facility] NRBC Absolute 0.000 0.000 - 0.000 x10(3)/mc L [facility] Blood 12/11/2022 4:45 AM EST 12/11/2022 6:48 AM EST Narrative Resulting Agency Comment Spec In Lab Augustin Lou MD HEMATOLOGY ORDERABLE S Performing Organization Address City/[facility]/ZIP Co de Phone Number [facility] [place] [address] * Heparin (unfractionated) Level (12/11/2022 4:45 AM EST) UF Heparin 0.80 IU/mL [facility] Comment: Specimen drawn more than one [...] MD HEMATOLOGY ORDERAB LES Performing Organization Address City/[facility]/ZIP Co de Phone Number [facility] [place] [address] * Basic Metabolic Panel (non-fasting) (12/11/2022 4:45 AM EST) Glucose Not Perf 65 - 199 [facility] Comment: Sample improperly processed prior to receipt. Diabetes: >=200 mg/dL plus symptoms Blood Urea Nitrogen 15 10 - 20 mg/dL [facility] Creatinine 1.10 0.80 - 1.50 mg/dL [facility] Sodium 143 135 - 145 mmol/L [facility] Potassium 3.7 3.5 - 5.0 mmol/L [facility] Comment: Please note: ??Patients with WBC >100,000 may have falsely elevated Potassium levels. ??For accurate Potassium quantification in these patients send serum separator tube (gold top) for subsequent determinations. ??Contact the Clinical Chemistry Laboratory if there are any questions. Chloride 106 98 - 107 mmol/L [facility] Carbon Dioxide 26 22 - 31 mmol/L [facility] Anion Gap 11 5 - 15 mmol/L [facility] Calcium 8.9 8.5 - 10.5 mg/dL [facility] Est Glomerular Filtration Rate 68 >=60 mL/min/1. 73 m?? [facility] Comment: This patient's estimated GFR was [...] Lab Aristides Hinds MD CHEMISTRY ORDERABL ES [facility] [place] [address] * Heparin (unfractionated) Level (12/10/2022 10:35 PM EST) UF Heparin 0.72 IU/mL [facility] Comment: Heparin (anti-Xa) levels [...] Lab Aristides Hinds MD HEMATOLOGY ORDERAB LES [facility] [place] [address] * (ABNORMAL) Hemogram (12/10/2022 10:35 PM EST) White Blood Cell 6.8 4.0 - 9.5 x10(3)/mc L [facility] Red Blood Cell 3.62(L) 4.58 - 5.54 x10(6)/mc L [facility] Hemoglobin 9.6(L) 13.7 - 16.5 g/dL [facility] Hematocrit 31.4(L) 40.5 - 48.5 % [facility] Mean Cell Volume 86.7 82.9 - 93.1 fL [facility] Mean Cell Hemoglobin 26.5(L) 27.5 - 32.1 pg [facility] Mean Cell Hemoglobin Concentration 30.6(L) 32.0 - 35.7 g/dL [facility] Platelet 177 145 - 357 x10(3)/mc L [facility] RDW Standard Deviation 62.9(H) 36.0 - 45.0 fL [facility] RDW coefficient of variation 19.8(H) 11.4 - 13.8 % [facility] Mean Platelet Volume 10.5 7.6 - 12.9 fL [facility] NRBC% auto 0.0 % [facility] NRBC Absolute 0.000 0.000 - 0.000 x10(3)/mc L [facility] Blood 12/10/2022 10:3 5 PM EST 12/10/2022 10:42 PM EST Narrative Resulting Agency Comment Spec In Lab Aristides Hinds MD HEMATOLOGY ORDERAB LES Performing Organization Address City/[facility]/ZIP Co de Phone Number [facility] [place] [address] * Heparin (unfractionated) Level (12/10/2022 4:40 PM EST) Pathologist [facility] UF Heparin 0.49 IU/mL [facility] Comment: Heparin (anti-Xa) levels should be [...] MD HEMATOLOGY ORDERAB LES Performing Organization Address City/[facility] Co de Phone Number [facility] [place] [address] * (ABNORMAL) Basic Metabolic Panel (non-fasting) (12/10/2022 10:08 AM EST) Glucose 261(H) 65 - 199 mg/dL [facility] Comment:Diabetes: >=200 mg/d L plus symptoms Blood Urea Nitrogen 12 10 - 20 mg/dL [facility] Creatinine 1.01 0.80 - 1.50 mg/dL [facility] Sodium 142 135 - 145 mmol/L [facility] Potassium 4.0 3.5 - 5.0 mmol/L [facility] Comment: Please note: ??Patients with WBC >100,000 may have falsely elevated Potassium levels. ??For accurate Potassium quantification in these patients send serum separator tube (gold top) for subsequent determinations. ??Contact the Clinical Chemistry Laboratory if there are any questions. Chloride 109(H) 98 - 107 mmol/L [facility] Carbon Dioxide 23 22 - 31 mmol/L [facility] Anion Gap 10 5 - 15 mmol/L [facility] Calcium 8.7 8.5 - 10.5 mg/dL [facility] Est Glomerular Filtration Rate 75 >=60 mL/min/1. 73 m?? [facility] Comment: This patient's estimated GFR [...] Lab Aristides Hinds MD CHEMISTRY ORDERABL ES [facility] [address] [place] [address] * Differential, Automated (12/10/2022 9:20 AM EST) Neutrophil % 62.4 % [facility] Neutrophil Absolute 3.90 1.70 - 6.10 x10(3)/[facility] Lymph % 21.7 % [facility] Lymphocytes Abs 1.4 0.9 - 3.2 x10(3)/[facility] Monocyte % 13.4 % [facility] Monocyte Abs 0.8 0.3 - 0.9 x10(3)/[facility] Eos % 1.6 % [facility] Eosinophils Abs 0.1 0.0 - 0.4 x10(3)/[facility] Basophil % 0.6 % [facility] Baso Absolute 0.0 0.0 - 0.1 x10(3)/mcL [facility] Immature Gran % 0.30 % [facility] Comment: Immature granulocytes(IG's)percentage and absolute count will include metamyelocytes, myelocytes, and promyelocytes. Blood smears from CBCs yielding IG's will be scanned manually for concordance. If this scan disagrees with the automated IG or if promyelocytes are noted, a manual differential will be performed. Immature Gran Absolute 0.02 0.00 - 0.04 x10(3)/[facility] Blood 12/10/2022 9:20 AM EST 12/10/2022 9:27 AM EST Narrative Resulting Agency Comment Spec In Lab Augustin Lou MD HEMATOLOGY ORDERABLE S [facility] [place] [address] * (ABNORMAL) Hemogram (12/10/2022 9:20 AM EST) White Blood Cell 6.3 4.0 - 9.5 x10(3)/mc L [facility] Red Blood Cell 3.46(L) 4.58 - 5.54 x10(6)/mc L [facility] Hemoglobin 9.4(L) 13.7 - 16.5 g/dL [facility] Hematocrit 30.1(L) 40.5 - 48.5 % [facility] Mean Cell Volume 87.0 82.9 - 93.1 fL [facility] Mean Cell Hemoglobin 27.2(L) 27.5 - 32.1 pg [facility] Mean Cell Hemoglobin Concentration 31.2(L) 32.0 - 35.7 g/dL [facility] Platelet 180 145 - 357 x10(3)/mc L [facility] RDW Standard Deviation 63.2(H) 36.0 - 45.0 fL [facility] RDW coefficient of variation 19.9(H) 11.4 - 13.8 % [facility] Mean Platelet Volume 10.4 7.6 - 12.9 fL [facility] NRBC% auto 0.0 % [facility] NRBC Absolute 0.000 0.000 - 0.000 x10(3)/mc L [facility] Blood 12/10/2022 9:20 AM EST 12/10/2022 9:27 AM EST Narrative Resulting Agency Comment Spec In Lab Augustin Lou MD HEMATOLOGY ORDERABLE S Performing Organization Address City/[facility]/[place] [address] * Differential, Automated (12/09/2022 5:42 PM EST) Neutrophil % 63.5 % [facility] Neutrophil Absolute 3.67 1.70 - 6.10 x10(3)/[facility] Lymph % 19.7 % [facility] Lymphocytes Abs 1.1 0.9 - 3.2 x10(3)/[facility] Monocyte % 14.4 % [facility] Monocyte Abs 0.8 0.3 - 0.9 x10(3)/[facility] Eos % 1.6 % [facility] Eosinophils Abs 0.1 0.0 - 0.4 x10(3)/[facility] Basophil % 0.5 % [facility] Baso Absolute 0.0 0.0 - 0.1 x10(3)/[facility] Immature Gran % 0.30 % [facility] Comment: Immature granulocytes(IG's)percentage and absolute count will include metamyelocytes, myelocytes, and promyelocytes. Blood smears from CBCs yielding IG's will be scanned manually for concordance. If this scan disagrees with the automated IG or if promyelocytes are noted, a manual differential will be performed. Immature Gran Absolute 0.02 0.00 - 0.04 x10(3)/[facility] Blood 12/09/2022 5:42 PM EST 12/09/2022 5:53 PM EST Narrative Resulting Agency Comment Spec In Lab Augustin Lou MD HEMATOLOGY ORDERABLE S Performing Organization Address City/[facility]/[place] [address] * (ABNORMAL) Hemogram (12/09/2022 5:42 PM EST) White Blood Cell 5.8 4.0 - 9.5 x10(3)/[facility] Red Blood Cell 3.39(L) 4.58 - 5.54 x10(6)/[facility] Hemoglobin 9.0(L) 13.7 - 16.5 g/dL [facility] Hematocrit 28.8(L) 40.5 - 48.5 % [facility] Mean Cell Volume 85.0 82.9 - 93.1 fL [facility] Mean Cell Hemoglobin 26.5(L) 27.5 - 32.1 pg [facility] Mean Cell Hemoglobin Concentration 31.3(L) 32.0 - 35.7 g/dL [facility] Platelet 167 145 - 357 x10(3)/[facility] RDW Standard Deviation 61.7(H) 36.0 - 45.0 fL [facility] RDW coefficient of variation 20.3(H) 11.4 - 13.8 % [facility] Mean Platelet Volume 10.2 7.6 - 12.9 fL [facility] NRBC% auto 0.0 % [facility] NRBC Absolute 0.000 0.000 - 0.000 x10(3)/[facility] Blood 12/09/2022 5:42 PM EST 12/09/2022 5:53 PM EST Narrative Resulting Agency Comment Spec In Lab Augustin Lou MD HEMATOLOGY ORDERABLE S [facility] [place] [address] * COLONOSCOPY (12/09/2022 11:22 AM EST) COLONOSCOPY [facility] Endoscopy Procedure Date: 12/09/2022 11:22 AM ? Patient Name: Koko Zamora ? Date of : 1940 ? Age: 82 ? Order #: [id number] ? Instrument Name: ? Procedure: ? Colonoscopy [...] LABORATORY Neutrophil Absolute 4.49 1.70 - 6.10 x10(3)/[facility] Lymph % 22.9 % [facility] Lymphocytes Abs 1.7 0.9 - 3.2 x10(3)/[facility] Monocyte % 12.5 % [facility] Monocyte Abs 0.9 0.3 - 0.9 x10(3)/[facility] Eos % 1.8 % [facility] Eosinophils Abs 0.1 0.0 - 0.4 x10(3)/[facility] Basophil % 0.7 % [facility] Baso Absolute 0.0 0.0 - 0.1 x10(3)/[facility] Immature Gran % 0.40 % [facility] Comment: Immature granulocytes(IG's)percentage and absolute count will include metamyelocytes, myelocytes, and promyelocytes. Blood smears from CBCs yielding IG's will be scanned manually for concordance. If this scan disagrees with the automated IG or if promyelocytes are noted, a manual differential will be performed. Immature Gran Absolute 0.03 0.00 - 0.04 x10(3)/mcL [facility] Blood 12/09/2022 12:3 0 AM EST 12/09/2022 12:50 AM EST Narrative Resulting Agency Comment Spec In Lab Augustin Lou MD HEMATOLOGY ORDERABLE S Performing Organization Address City/[facility]/ZIP Co de Phone Number [facility] [place] [address] * (ABNORMAL) Hemogram (12/09/2022 12:30 AM EST) White Blood Cell 7.3 4.0 - 9.5 x10(3)/mc L [facility] Red Blood Cell 3.44(L) 4.58 - 5.54 x10(6)/mc L [facility] Hemoglobin 9.2(L) 13.7 - 16.5 g/dL [facility] Hematocrit 29.3(L) 40.5 - 48.5 % [facility] Mean Cell Volume 85.2 82.9 - 93.1 fL [facility] Mean Cell Hemoglobin 26.7(L) 27.5 - 32.1 pg [facility] Mean Cell Hemoglobin Concentration 31.4(L) 32.0 - 35.7 g/dL [facility] Platelet 183 145 - 357 x10(3)/mc L [facility] RDW Standard Deviation 62.1(H) 36.0 - 45.0 fL [facility] RDW coefficient of variation 20.3(H) 11.4 - 13.8 % [facility] Mean Platelet Volume 10.5 7.6 - 12.9 fL [facility] NRBC% auto 0.0 % [facility] NRBC Absolute 0.000 0.000 - 0.000 x10(3)/mc L [facility] Blood 12/09/2022 12:3 0 AM EST 12/09/2022 12:50 AM EST Narrative Resulting Agency Comment Spec In Lab Augustin Lou MD HEMATOLOGY ORDERABLE S [facility] [place] [address] * Phosphorus (12/09/2022 12:30 AM EST) Phosphorus 2.8 2.5 - 4.5 mg/dL [facility] Blood 12/09/2022 12:3 0 AM EST 12/09/2022 12:50 AM EST Narrative Resulting Agency Comment Spec In Lab Stu Padilla MD CHEMISTRY ORDERABLES Performing Organization Address [facility] Co de Phone Number [facility] [place] [address] * Magnesium (12/09/2022 12:30 AM EST) Magnesium 0.80 0.69 - 1.07 mmol/L [facility] Blood 12/09/2022 12:3 0 AM EST 12/09/2022 12:50 AM EST Narrative Resulting Agency Comment Spec In Lab Stu Padilla MD CHEMISTRY ORDERABLES Performing Organization Address [facility] de Phone Number [facility] [place] [address] * (ABNORMAL) Basic Metabolic Panel (non-fasting) (12/09/2022 12:30 AM EST) Glucose 151 65 - 199 mg/dL [facility] Comment:Diabetes: >=200 mg/d L plus symptoms Blood Urea Nitrogen 14 10 - 20 mg/dL [facility] Creatinine 0.88 0.80 - 1.50 mg/dL [facility] Sodium 142 135 - 145 mmol/L [facility] Potassium 3.7 3.5 - 5.0 mmol/L [facility] Comment: Please note: ??Patients with WBC >100,000 may have falsely elevated Potassium levels. ??For accurate Potassium quantification in these patients send serum separator tube (gold top) for subsequent determinations. ??Contact the Clinical Chemistry Laboratory if there are any questions. Chloride 109(H) 98 - 107 mmol/L [facility] Carbon Dioxide 22 22 - 31 mmol/L [facility] Anion Gap 11 5 - 15 mmol/L [facility] Calcium 8.5 8.5 - 10.5 mg/dL [facility] Est Glomerular Filtration Rate 87 >=60 mL/min/1. 73 m?? [facility] Comment: This patient's estimated GFR was [...] Padilla MD CHEMISTRY ORDERABLES Performing Organization Address City/[facility]/ZIP Co de Phone Number [facility] [place] [address] * Type and Screen Validity (12/08/2022 5:51 PM EST) T&S only valid at [facility] Comment:This Type and Screen result is only valid at the [facility] Blood 12/08/2022 5:51 PM EST 12/08/2022 5:55 PM EST Narrative Resulting Agency Comment Spec In Lab Augustin Lou MD BLOOD BANK LAB ORDER NICK Performing Organization Address City/[facility]/ZIP Co de Phone Number [facility] [place] [address] * AB[facility] Recheck Status (12/08/2022 5:51 PM EST) [facility] Type Recheck Completed [facility] Blood 12/08/2022 5:51 PM EST 12/08/2022 5:55 PM EST Narrative Resulting Agency Comment Spec In Lab Augustin Lou MD BLOOD BANK LAB ORDER NICK Performing Organization Address City/[facility]/[place] [address] * Differential, Automated (12/08/2022 5:51 PM EST) Pathologist [facility] Neutrophil % 62.4 % [facility] Neutrophil Absolute 4.12 1.70 - 6.10 x10(3)/[facility] Lymph % 22.8 % [facility] Lymphocytes Abs 1.5 0.9 - 3.2 x10(3)/[facility] Monocyte % 11.6 % [facility] Monocyte Abs 0.8 0.3 - 0.9 x10(3)/[facility] Eos % 2.0 % [facility] Eosinophils Abs 0.1 0.0 - 0.4 x10(3)/[facility] Basophil % 0.6 % [facility] Baso Absolute 0.0 0.0 - 0.1 x10(3)/[facility] Immature Gran % 0.60 % [facility] Comment: Immature granulocytes(IG's)percentage and absolute count will include metamyelocytes, myelocytes, and promyelocytes. Blood smears from CBCs yielding IG's will be scanned manually for concordance. If this scan disagrees with the automated IG or if promyelocytes are noted, a manual differential will be performed. Immature Gran Absolute 0.04 0.00 - 0.04 x10(3)/[facility] Blood 12/08/2022 5:51 PM EST 12/08/2022 5:57 PM EST Narrative Resulting Agency Comment Spec In Lab Augustin Lou MD HEMATOLOGY ORDERABLE S Performing Organization Address City/[facility]/[place] [address] * (ABNORMAL) Hemogram (12/08/2022 5:51 PM EST) White Blood Cell 6.6 4.0 - 9.5 x10(3)/mc L [facility] Red Blood Cell 3.47(L) 4.58 - 5.54 x10(6)/mc L [facility] Hemoglobin 9.4(L) 13.7 - 16.5 g/dL [facility] Hematocrit 29.9(L) 40.5 - 48.5 % [facility] Mean Cell Volume 86.2 82.9 - 93.1 fL [facility] Mean Cell Hemoglobin 27.1(L) 27.5 - 32.1 pg [facility] Mean Cell Hemoglobin Concentration 31.4(L) 32.0 - 35.7 g/dL [facility] Platelet 184 145 - 357 x10(3)/mc L [facility] RDW Standard Deviation 62.3(H) 36.0 - 45.0 fL [facility] RDW coefficient of variation 20.1(H) 11.4 - 13.8 % [facility] Mean Platelet Volume 10.9 7.6 - 12.9 fL [facility] NRBC% auto 0.0 % [facility] NRBC Absolute 0.000 0.000 - 0.000 x10(3)/mc L [facility] Blood 12/08/2022 5:51 PM EST 12/08/2022 5:57 PM EST Narrative Resulting Agency Comment Spec In Lab Augustin Lou MD HEMATOLOGY ORDERABLE S Performing Organization Address City/[facility]/ZIP Co de Phone Number [facility] [place] [address] * Antibody screen (12/08/2022 5:51 PM EST) Ab Screen Interp Negative [facility] Expires at [id number] on: 12/11/2022 [facility] Blood 12/08/2022 5:51 PM EST 12/08/2022 5:55 PM EST Narrative Resulting Agency Comment Spec In Lab Augustin Lou MD BLOOD BANK LAB ORDER NICK Performing Organization Address City/[facility]/ZIP Co de Phone Number [facility] [place] [address] * ABO/Rh Typing (12/08/2022 5:51 PM EST) [facility] Type O Pos [facility] Blood 12/08/2022 5:51 PM EST 12/08/2022 5:55 PM EST Narrative Resulting Agency Comment Spec In Lab Augustin Lou MD BLOOD BANK LAB ORDER NICK Performing Organization Address City/[facility]/ZIP Co de Phone Number [facility] [place] [address] * APTT (12/08/2022 5:51 PM EST) Partial Thromboplastin Time 28 25 - 37 sec [facility] Comment: The PTT is NOT appropriate for heparin monitoring. Use the Anti-Xa level for heparin monitoring (HEP UFH) or LMWH monitoring (HEP LMW). A PTT less than 37 seconds generally indicates adequate hemostasis. Blood 12/08/2022 5:51 PM EST 12/08/2022 5:57 PM EST Narrative Resulting Agency Comment Spec In Lab Stu Padilla MD HEMATOLOGY ORDERABLE S Performing Organization Address [facility] Co de Phone Number [facility] [place] [address] * (ABNORMAL) Prothrombin Time (12/08/2022 5:51 PM EST) Prothrombin Time 12.6(H) 9.4 - 12.5 sec [facility] International Normalization Ratio 1.1 [facility] Comment: An INR <2.0 indicates adequate [...] MD HEMATOLOGY ORDERABLE S Performing Organization Address City/[facility]/ZIP Co de Phone Number [facility] [place] [address] * Hepatic Function Panel (12/08/2022 5:51 PM EST) Protein, Total 6.1 6.1 - 8.0 g/dL [facility] Albumin 3.8 3.2 - 5.2 g/dL [facility] Aspartate Aminotransferase 14 0 - 39 unit/L [facility] Alanine Aminotransferase 20 0 - 55 unit/L [facility] Alkaline Phosphatase 86 40 - 130 unit/L [facility] Bilirubin, Total 1.2 0.2 - 1.3 mg/dL [facility] Bilirubin, Direct 0.2 0.0 - 0.3 mg/dL [facility] Blood 12/08/2022 5:51 PM EST 12/08/2022 5:57 PM EST Narrative Resulting Agency Comment Spec In Lab tSu Padilla MD CHEMISTRY ORDERABLES [facility] [place] [address] * (ABNORMAL) Basic Metabolic Panel (non-fasting) (12/08/2022 5:51 PM EST) Glucose 201(H) 65 - 199 mg/dL [facility] Comment:Diabetes: >=200 mg/d L plus symptoms Blood Urea Nitrogen 16 10 - 20 mg/dL [facility] Creatinine 0.87 0.80 - 1.50 mg/dL [facility] Sodium 138 135 - 145 mmol/L [facility] Potassium 4.0 3.5 - 5.0 mmol/L [facility] Comment: Please note: ??Patients with WBC >100,000 may have falsely elevated Potassium levels. ??For accurate Potassium quantification in these patients send serum separator tube (gold top) for subsequent determinations. ??Contact the Clinical Chemistry Laboratory if there are any questions. Chloride 107 98 - 107 mmol/L [facility] Carbon Dioxide 22 22 - 31 mmol/L [facility] Anion Gap 9 5 - 15 mmol/L [facility] Calcium 8.7 8.5 - 10.5 mg/dL [facility] Est Glomerular Filtration Rate 87 >=60 mL/min/1. 73 m?? [facility] Comment: This patient's estimated GFR [...] In Lab Stu Padilla MD CHEMISTRY ORDERABLES [facility] [place] [address] documented in this encounter Visit Diagnoses Diagnosis GI bleed- Primary Hemorrhage of gastrointestinal tract, unspecified Gastrointestinal hemorrhage, unspecified gastrointestinal hemorrhage type Coronary artery disease involving [place] coronary artery of [place] heart without angina pectoris documented in this [...] Horne RN) 0820 (Given - Provider: Rubia Honre RN) 0814 (Given - Provider: Corrie Harvey, [...] Routine documented in this encounter Care Teams Hand Funnel Coater Relationship Specialty Start Date End Date Bobby Das MD [address] [place] [address] [place] [id number] PCP - General 10/02/10 documented as of this encounter
--- OUTSIDE RECORDS SUMMARY | 2024-09-30 12:09 | XMS_ITS | Encounter Summary ---
Author Organization [facility] Address [facility] [place] [address] Care Team Providers Care Parking Lot Manager Name Role Phone Bobby Das MD Primary Care Provider [phone] Reason for Visit * Reason Comments Medication Refill Encounter Details Date Type Department Care Team (Late st Contact Info) Description 07/31/2022 Refill [place] [address] Nasrin Parra PA [facility] [address] VASCULAR [place] [address] Social History Tobacco Use Types Packs/Day Years [...] on filedocumented in this encounter Care Teams Parking Lot Manager Relationship Specialty Start Date End Date Bobby Das MD [address] [place] [address] [place] [id number] PCP - General 10/02/10 documented as of this encounter
--- OUTSIDE RECORDS SUMMARY | 2024-09-30 12:09 | XMS_ITS | Encounter Summary ---
Author Organization [facility] [place] [place] [address] Care Team Providers Care Director Immunology Name Role Phone Bobby Das MD Primary Care Provider [phone] Reason for Visit * Reason Comments Dizziness * Auth/Cert Specialty Diagnoses / Procedures Referred By Contac t Referred To Contact Diagnoses GIB (gastrointestinal bleeding) [place] [address] [facility] Referral ID Status Reason Start Date Expiration Date Visits Re quested Visits Authorized [id number] 1 1 Encounter Details Date Type Department Care Team (Latest Contact Info) Description 05/31/2022 10:11 AM EDT - 06/02/2022 3:02 PM EDT Hospital Encounter Inter[place] [address] Dominique Hinds MD [facility] [place] [address] [place] [address] [place] [address] [place] [address] GIB (gastrointestinal bleeding) (Primary Dx) Discharge Disposition: [...] switching to a differentblood thinner with the cottage master outpatient. Call your doctor or seek medical [...] to a different blood thinner with your cottage master as an outpatient Stopped Medications - Aspirin - Valsartan - Speak with your cottage master about the timing of restarting this Follow-up Appointments Future Appointments Date Time Provider Department Center 06/10/2022 11:00 AM Loretta Cohen MD [facility] 06/13/2022 7:30 AM Edson Lagos [place] [facility] VAS LAB [facility] 06/13/2022 8:00 AM Fito Summers MD [facility] V SURG [facility] 06/13/2022 10:00 AM Alan Reid MD [facility] CARD 4A [facility] Your Inpatient Medical Team at [facility] Name(s) of your inpatient provider(s): Dr. John Ames For questions regarding issues relating to your hospitalization on the Hospital Medicine Service, please contact your inpatient physician through the [facility] Junior Programmer [phone]. Issues after hours and on weekends will be handled by the Hospitalist staff on-call. Your Primary Care Provider Bobby Das MD [phone] Future Appointments and Orders Future Appointments and Orders Future Appointments Provider Department Dept Phone 06/10/2022 11:00 AM Loretta Cohen MD [employer] Arrive at: Geriatric Nurse Practitioner [address] [place] [address] 06/13/2022 7:30 AM Edson [place]os [place] Vascular Lab at [facility] Arrive at: Geriatric Nurse Practitioner Area [phone] 06/13/2022 8:00 AM Fito Summers MD Vascular Surgery at [facility] Arrive at: Geriatric Nurse Practitioner Area 3V [phone] 06/13/2022 10:00 AM Alan Reid MD Cardiology at [facility] Arrive at: Geriatric Nurse Practitioner Area 4A [phone] For questions regarding this document or issues relating to this hospitalization on the Medical Service, please contact your inpatient physician through the [facility] Junior Programmer . Issues afterhours and on weekends will [...] switching to a differentblood thinner with the cottage master outpatient. Call your doctor or seek medical [...] to a different blood thinner with your cottage master as an outpatient Stopped Medications - Aspirin - Valsartan - Speak with your cottage master about the timing of restarting this Follow-up Appointments Future Appointments Date Time Provider Department Center 06/10/2022 11:00 AM Loretta Cohen MD [facility] 06/13/2022 7:30 AM Edson [place]os [place] [facility] VAS LAB [facility] 06/13/2022 8:00 AM Fito Summers MD [facility] V SURG [facility] 06/13/2022 10:00 AM Alan Reid MD [facility] CARD 4A [facility] Your Inpatient Medical Team at [facility] Name(s) of your inpatient provider(s): Dr. John Ames For questions regarding issues relating to your hospitalization on the Hospital Medicine Service, please contact your inpatient physician through the [facility] Junior Programmer [phone]. Issues after hours and on weekends will be handled by the Hospitalist staff on-call. Your Primary Care Provider Bobby Das MD [phone] documented in this encounter Medications at Time of Discharge Medication Sig Dispensed Refills Start Date End Date fluticasone propionate (FLONASE) 50 mcg/actuation [place], Suspension 1 spray by Each Nare route [...] spent >30 minutes (Day of Discharge Code 04515) involved in the final examination of the [...] were not included. Hospital Medicine Progress Note [place] Team - Pager #[phone] Admit Date: 05/31/2022 Name: Koko Zamora : [...] Kurt Ames MD Internal Medicine, PGY-1 Medicine [place] Team #[id number] Associated attestation - John Jolley MD - [...] is on the [facility] inpatient only procedure list (status C) due to: GI Bleeding documented in this encounter H&P Notes * Yamilet Victor MD - 05/31/2022 4:33 PM EDT Images from the original note were not included. [facility] (#[id number]) History and Physical Patient info: Name: Koko Zamora : 1940 PCP: Bobby Das MD PCP phone number: [phone] Date of Admission: 05/31/2022 ( Hospital Day [...] IR Biopsy Spine 07/20/2019 Bobby Marshall MD [facility] INTERVENTIONL RAD ??? IR VERTEBROPLASTY LUMBAR MULTIPLE LEVELS 07/20/2019 IR Vertebroplasty Lumbar Multiple Levels 07/20/2019 Bobby Marshall MD [facility] INTERVENTIONL RAD ??? IR VERTEBROPLASTY THORACIC SINGLE LEVEL 10/25/2020 IR Vertebroplasty Thoracic Single Level 10/25/2020 Matt Chisholm MD [facility] INTERVENTIONL RAD ??? PRO EMBLC/THRMBC FEMORAL POPLITEAL AORTO-ILIAC ARTERY Left 05/15/2022 EMBOLECTOMY OR THROMBECTOMY, FEMOROPOPLITEAL, AORTOILIAC ARTERY BY LEG INCISION (WRVU 19.48) performed by Fito Summers MD at [facility] MAIN OR No family history on [...] 11 ??? fluticasone propionate (FLONASE) 50 mcg/actuation [place], Suspension as needed. ??? fluorouraciL (EFUDEX) 5 [...] Gas) No results found for: PHART, PO2ART, EFZ5ESZ, PDO9YJP Microbiology: N/A Pertinent radiology/diagnostic studies: Recent prior [...] [facility] # [id number] Attending Staff Admission Documentation I have examined [...] AM EDT Pt brought to XR by grades 1 6 tutor * Brittany Ramirez MD - 05/31/2022 10:40 [...] who have questions please contact the health vocational childcare teacher that requested your imaging first. Chest PA [...] who have questions please contact the health vocational childcare teacher that requested your imaging first. Course as [...] from [place]. Brittany Ramirez MD Resident 05/31/22 [id number] Associated attestation - Dominique Hinds MD - [...] soft blood pressures, MD made aware. 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 Patient [...] Heparin gtt - plan to bridge to [facility] Discharge planning Increase strength & [...] from the original note were [place] [address] INPATIENT CARDIOLOGY CONSULT NOTE Date of Consultation: 06/01/2022 Admit Date: 05/31/2022 Place of Service: IS86/IS86-A Referring Attending: DOMINIQUE HINDS COLEMAN W FRIEDMAN, HARLEY P Responsible Behavioral Psychologist: Dr. Rizo Hospital Day 1 day Reason [...] LCX and LCx stent) who presented to [facility] on 05/31/2022 for [...] IR Biopsy Spine 07/20/2019 Bobby Marshall MD [facility] INTERVENTIONL RAD ??? IR VERTEBROPLASTY LUMBAR MULTIPLE LEVELS 07/20/2019 IR Vertebroplasty Lumbar Multiple Levels 07/20/2019 Bobby Marshall MD [facility] INTERVENTIONL RAD ??? IR VERTEBROPLASTY THORACIC SINGLE LEVEL 10/25/2020 IR Vertebroplasty Thoracic Single Level 10/25/2020 Matt Chisholm MD [facility] INTERVENTIONL RAD ??? PRO EMBLC/THRMBC FEMORAL POPLITEAL AORTO-ILIAC ARTERY Left 05/15/2022 EMBOLECTOMY OR THROMBECTOMY, FEMOROPOPLITEAL, AORTOILIAC ARTERY BY LEG INCISION (WRVU 19.48) performed by Fito Summers MD at [facility] MAIN OR ALLERGIES: Allergies Allergen Reactions [...] time ??? fluticasone propionate (FLONASE) 50 mcg/actuation [place], Suspension 1 spray by Each Nare route [...] Neurology: Without focal deficit ECG: Echocardiogram: 05/16/[address] [facility] 05/20/2022 Coronary Angiography: Dominance: Right [...] catheter and a 3.[address] 20 Mhz. Imaging was successful. Image [...] A premounted 2.75 x 30 mm Rudy [place] (AMPARO) was deployed with a maximum inflation [...] may require modification of this regimen. Consult [facility] Interventional Cardiology for [...] source. has had a [facility] with stent placed and revascularization [...] who have questions please contact the health vocational childcare teacher that requested your imaging first. [employer] [address] [...] who have questions please contact the health vocational childcare teacher that requested your imaging first. Recent Labs [...] systolic heart failure (recent [facility] 05/20/2022 with 2V disease OM1 and distal RCA, had ostial LCX and LCx stent), recent admission for acute limb ischemia LLE, where he had left common femoral transverse arteriotomy and primary repair, thromboembolectomy of the SFA, profunda and common femoral artery with 4 compartment fasciotomies, who presented to [facility] on 05/31/2022 for [...] attestation for additional insight. Rossy Anaya MD [facility] Registration Coordinator, PGY-5 Inpatient Cardiology Consults Pager #[phone] Please check [facility]enda for on-call cardiology consults [...] A&Ox 4. On room air. VSS. 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 Adequate urine output, urinal at [...] receiving care in [place] must abide by [place] law. The hierarchy [...] walker - rolling Home Address confirmed as: [address] [place] [phone] Social & Family Supports: All names listed below confirmed with patient as current and correct Extended Emergency Contact Information Primary Emergency Contact: Ursula Zamora Address: [address] [place] [phone] [facility] Relation: Spouse Current Care Provided [...] Type: *No Product type* / Secondary Insurance: [facility] Secondary Insurance? (Only Medicare A&B): Yes ; Prescription Coverage: Yes Preferred Pharmacy: [id number] [address] Status: Patient is a : No Primary Care Provider: Bobby Das MD [phone] Patient/Caregiver Goals of Treatment: Patient plans to [...] with transition of care planning. 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 He lives in [facility]. Currently light-headedness is improved. No [...] IR Biopsy Spine 07/20/2019 Bobby Marshall MD [facility] INTERVENTIONL RAD ??? IR VERTEBROPLASTY LUMBAR MULTIPLE LEVELS 07/20/2019 IR Vertebroplasty Lumbar Multiple Levels 07/20/2019 Bobby Marshall MD [facility] INTERVENTIONL RAD ??? IR VERTEBROPLASTY THORACIC SINGLE LEVEL 10/25/2020 IR Vertebroplasty Thoracic Single Level 10/25/2020 Matt Chisholm MD [facility] INTERVENTIONL RAD ??? PRO EMBLC/THRMBC FEMORAL POPLITEAL AORTO-ILIAC ARTERY Left 05/15/2022 EMBOLECTOMY OR THROMBECTOMY, FEMOROPOPLITEAL, AORTOILIAC ARTERY BY LEG INCISION (WRVU 19.48) performed by Fito Summers MD at [facility] MAIN OR SOCIAL HX: Social History [...] tympanic to percussion RECTAL: performed with general labor present, no overt masses, fissures, external hemorrhoids, [...] who have questions please contact the health vocational childcare teacher that requested your imaging first. Abdomen & [...] PM EDT Upper Gi Endoscopy, Ctrl Bleed ([id number]) 05/31/2022 4:05 PM EDT melena Upper GI Endoscopy, Diagnostic ([id number]) 05/31/2022 4:05 PM EDT melena UPPER GI [...] 8:20 AM EDT) Neutrophil % 61.3 % [facility] Neutrophil Absolute 4.44 1.70 - 6.10 x10(3)/mc L [facility] Lymph % 25.2 % [facility] Lymphocytes Abs 1.8 0.9 - 3.2 x10(3)/mc L [facility] Monocyte % 10.0 % [facility] Monocyte Abs 0.7 0.3 - 0.9 x10(3)/ L [facility] Eos % 2.1 % [facility] Eosinophils Abs 0.2 0.0 - 0.4 x10(3)/ L [facility] Basophil % 0.7 % [facility] Baso Absolute 0.0 0.0 - 0.1 x10(3)/mc L [facility] Immature Gran % 0.70 % [facility] Comment: Immature granulocytes(IG's)percentage and absolute count will include metamyelocytes, myelocytes, and promyelocytes. Blood smears from CBCs yielding IG's will be scanned manually for concordance. If this scan disagrees with the automated IG or if promyelocytes are noted, a manual differential will be performed. Immature Gran Absolute 0.05(H) 0.00 - 0.04 x10(3)/mc L [facility] Blood 06/02/2022 8:20 AM EDT 06/02/2022 8:25 AM EDT Narrative Resulting Agency Comment Spec In Lab Kurt Ames MD HEMATOLOGY ORDERABL ES [facility] [place] [address] * (ABNORMAL) Hemogram (06/02/2022 8:20 AM EDT) White Blood Cell 7.2 4.0 - 9.5 x10(3)/[facility] Red Blood Cell 2.74(L) 4.58 - 5.54 x10(6)/ L [facility] Hemoglobin 8.7(L) 13.7 - 16.5 g/dL [facility] Hematocrit 25.7(L) 40.5 - 48.5 % [facility] Mean Cell Volume 93.8(H) 82.9 - 93.1 fL [facility] Mean Cell Hemoglobin 31.8 27.5 - 32.1 pg [facility] Mean Cell Hemoglobin Concentration 33.9 32.0 - 35.7 g/dL [facility] Platelet 260 145 - 357 x10(3)/[facility] RDW Standard Deviation 51.0(H) 36.0 - 45.0 [facility] RDW coefficient of variation 14.9(H) 11.4 - 13.8 % [facility] Mean Platelet Volume 10.0 7.6 - 12.9 [facility] NRBC% auto 0.0 % [facility] NRBC Absolute 0.000 0.000 - 0.000 x10(3)/[facility] Blood 06/02/2022 8:20 AM EDT 06/02/2022 8:25 AM EDT Narrative Resulting Agency Comment Spec In Lab Kurt Ames MD HEMATOLOGY ORDERABL ES [facility] [place] [address] * Heparin (unfractionated) Level (06/02/2022 6:30 AM [...] MD HEMATOLOGY ORDERAB LES Performing Organization Address [facility] Co de Phone Number [facility] [place] [address] * Heparin (unfractionated) Level (06/02/2022 12:30 AM EDT) UF Heparin 0.81 IU/mL [facility] Comment: Heparin (anti-Xa) levels should [...] Lab Yamilet Victor MD HEMATOLOGY ORDERAB LES [facility] [place] [address] * Magnesium (06/02/2022 12:30 AM EDT) Magnesium 0.83 0.69 - 1.07 mmol/L [facility] Blood 06/02/2022 12:3 0 AM EDT 06/02/2022 12:40 AM EDT Narrative Resulting Agency Comment Spec In Lab Yamilet Victor MD CHEMISTRY ORDERABL ES [facility] [place] [address] * (ABNORMAL) Basic Metabolic Panel (non-fasting) (06/02/2022 12:30 AM EDT) Glucose 151 65 - 199 mg/dL [facility] Comment:Diabetes: >=200 mg/d L plus symptoms Blood Urea Nitrogen 12 10 - 20 mg/dL [facility] Creatinine 0.71(L) 0.80 - 1.50 mg/dL [facility] [...] questions. Chloride 108(H) 98 - 107 mmol/L [facility] Carbon Dioxide 24 22 - 31 mmol/L [facility] Anion Gap 10 5 - 15 mmol/L [facility] Calcium 8.1(L) 8.5 - 10.5 mg/dL [facility] Est Glomerular Filtration Rate 93 >=60 mL/min/1. 73 m?? [facility] Comment: [...] Lab Yamilet Victor MD CHEMISTRY ORDERABL ES [facility] [place] [address] * (ABNORMAL) Differential, Automated (06/01/2022 7:29 PM EDT) Neutrophil % 68.8 % [facility] Neutrophil Absolute 5.34 1.70 - 6.10 x10(3)/mc L [facility] Lymph % 19.6 % [facility] Lymphocytes Abs 1.5 0.9 - 3.2 x10(3)/mc L [facility] Monocyte % 8.1 % [facility] Monocyte Abs 0.6 0.3 - 0.9 x10(3)/mc L [facility] Eos % 1.8 % [facility] Eosinophils Abs 0.1 0.0 - 0.4 x10(3)/mc L [facility] Basophil % 0.8 % [facility] Baso Absolute 0.1 0.0 - 0.1 x10(3)/mc L [facility] Immature Gran % 0.90 % [facility] Comment: Immature granulocytes(IG's)percentage and absolute count will include metamyelocytes, myelocytes, and promyelocytes. Blood smears from CBCs yielding IG's will be scanned manually for concordance. If this scan disagrees with the automated IG or if promyelocytes are noted, a manual differential will be performed. Immature Gran Absolute 0.07(H) 0.00 - 0.04 x10(3)/mc L [facility] Blood 06/01/2022 7:29 PM EDT 06/01/2022 7:29 PM EDT Narrative Resulting Agency Comment Spec In Lab Kurt Ames MD HEMATOLOGY ORDERABL ES [facility] [place] [address] * (ABNORMAL) Hemogram (06/01/2022 7:29 PM EDT) White Blood Cell 7.8 4.0 - 9.5 x10(3)/mc L [facility] Red Blood Cell 2.65(L) 4.58 - 5.54 x10(6)/[facility] Hemoglobin 8.3(L) 13.7 - 16.5 g/dL [facility] Hematocrit 24.8(L) 40.5 - 48.5 % [facility] Mean Cell Volume 93.6(H) 82.9 - 93.1 [facility] Mean Cell Hemoglobin 31.3 27.5 - 32.1 pg [facility] Mean Cell Hemoglobin Concentration 33.5 32.0 - 35.7 g/dL [facility] Platelet 263 145 - 357 x10(3)/mc L [facility] RDW Standard Deviation 52.8(H) 36.0 - 45.0 fL [facility] RDW coefficient of variation 15.4(H) 11.4 - 13.8 % [facility] Mean Platelet Volume 10.4 7.6 - 12.9 [facility] NRBC% auto 0.0 % [facility] NRBC Absolute 0.000 0.000 - 0.000 x10(3)/ L [facility] Blood 06/01/2022 7:29 PM EDT 06/01/2022 7:29 PM EDT Narrative Resulting Agency Comment Spec In Lab Kurt Ames MD HEMATOLOGY ORDERABL ES Performing Organization Address [facility] Co de Phone Number [facility] [place] [address] * Heparin (unfractionated) Level (06/01/2022 7:29 PM EDT) UF Heparin 0.81 IU/mL [facility] Comment: Heparin (anti-Xa) levels should [...] MD HEMATOLOGY ORDERAB LES Performing Organization Address [facility]/ZIP Co de Phone Number [facility] [place] [address] * (ABNORMAL) Heparin (unfractionated) Level (06/01/2022 11:32 AM EDT) UF Heparin 1.05(Crit ical) IU/mL [facility] Comment: Critical Result called [...] Lab Yamilet Victor MD HEMATOLOGY ORDERAB LES [facility] [place] [address] * (ABNORMAL) Differential, Automated (06/01/2022 5:56 AM EDT) Neutrophil % 62.7 % [facility] Neutrophil Absolute 6.11(H) 1.70 - 6.10 x10(3)/mc L [facility] Lymph % 23.5 % [facility] Lymphocytes Abs 2.3 0.9 - 3.2 x10(3)/mc L [facility] Monocyte % 10.0 % [facility] Monocyte Abs 1.0(H) 0.3 - 0.9 x10(3)/mc L [facility] Eos % 2.2 % [facility] Eosinophils Abs 0.2 0.0 - 0.4 x10(3)/mc L [facility] Basophil % 0.9 % [facility] Baso Absolute 0.1 0.0 - 0.1 x10(3)/mc L [facility] Immature Gran % 0.70 % [facility] Comment: Immature granulocytes(IG's)percentage and absolute count will include metamyelocytes, myelocytes, and promyelocytes. Blood smears from CBCs yielding IG's will be scanned manually for concordance. If this scan disagrees with the automated IG or if promyelocytes are noted, a manual differential will be performed. Immature Gran Absolute 0.07(H) 0.00 - 0.04 x10(3)/mc L [facility] Blood 06/01/2022 5:56 AM EDT 06/01/2022 6:05 AM EDT Narrative Resulting Agency Comment Spec In Lab Arpita Valle MD HEMATOLOGY ORDERABLE S [facility] [place] [address] * (ABNORMAL) Hemogram (06/01/2022 5:56 AM EDT) White Blood Cell 9.7(H) 4.0 - 9.5 x10(3)/mc L [facility] Red Blood Cell 2.83(L) 4.58 - 5.54 x10(6)/mc L [facility] Hemoglobin 9.0(L) 13.7 - 16.5 g/dL [facility] Hematocrit 26.7(L) 40.5 - 48.5 % [facility] Mean Cell Volume 94.3(H) 82.9 - 93.1 fL [facility] Mean Cell Hemoglobin 31.8 27.5 - 32.1 pg [facility] Mean Cell Hemoglobin Concentration 33.7 32.0 - 35.7 g/dL [facility] Platelet 250 145 - 357 x10(3)/mc L [facility] RDW Standard Deviation 54.3(H) 36.0 - 45.0 fL [facility] RDW coefficient of variation 15.9(H) 11.4 - 13.8 % [facility] Mean Platelet Volume 10.5 7.6 - 12.9 fL [facility] NRBC% auto 0.0 % [facility] NRBC Absolute 0.000 0.000 - 0.000 x10(3)/mc L [facility] Blood 06/01/2022 5:56 AM EDT 06/01/2022 6:05 AM EDT Narrative Resulting Agency Comment Spec In Lab Arpita Valle MD HEMATOLOGY ORDERABLE S Performing Organization Address [facility] Co de Phone Number [facility] [place] [address] * Heparin (unfractionated) Level (06/01/2022 4:30 AM EDT) UF Heparin 0.68 IU/mL [facility] Comment: Heparin (anti-Xa) levels should [...] MD HEMATOLOGY ORDERAB LES Performing Organization Address [facility]/ZIP Co de Phone Number [facility] [place] [address] * (ABNORMAL) Urinalysis with reflex Culture (06/01/2022 4:00 AM EDT) Glucose, Urine Dipstick 500(Critical ) Negative mg/dL [facility] Comment: Urinalysis result NOT critical without a combination of Glucose greater than or equal to 500 mg/dL AND Ketones greater than or equal to 80 mg/dL Protein, Urine Dipstick Negative Negative mg/dL [facility] Bilirubin, Urine Dipstick Negative Negative mg/dL [facility] Comment: Clinical correlation required for positive Urine Bilirubin results as false positive may occur with some drugs and drug related products. If a false positive is suspected a serum total bilirubin should be considered if clinically indicated. Urobilinogen, Urine Dipstick Normal Normal mg/dL [facility] pH, Urn (dipstick) 6.0 5.0 - 8.0 [facility] Blood, Urine Dipstick Negative Negative mg/dL [facility] Ketone, Urine Dipstick Negative Negative mg/dL [facility] Nitrite, Urine Dipstick Negative Negative [facility] Leukocytes, Urine Dipstick Negative Negative [facility] Appearance, Urine Dipstick Clear Clear [facility] Specific Coram Urine Automated >=1.030(A) 1.005 - 1.030 [facility] Color, Urine Dipstick Yellow Yellow [facility] Reflex to Culture No [facility] Clean Catch Urine 06/01/2022 4:00 AM EDT 06/01/2022 4:26 AM EDT Narrative Resulting Agency Comment Spec In Lab Yamilet Victor MD URINE ORDERABLES Performing Organization Address City/[facility] Co de Phone Number [facility] [place] [address] * Magnesium (06/01/2022 1:00 AM EDT) Magnesium 0.93 0.69 - 1.07 mmol/L [facility] Blood 06/01/2022 1:00 AM EDT 06/01/2022 1:37 AM EDT Narrative Resulting Agency Comment Spec In Lab Yamilet Victor MD CHEMISTRY ORDERABL ES Performing Organization Address City/[facility] Co de Phone Number [facility] [place] [address] * (ABNORMAL) Basic Metabolic Panel (non-fasting) (06/01/2022 1:00 AM EDT) Glucose 148 65 - 199 mg/dL [facility] Comment:Diabetes: >=200 mg/d L plus symptoms Blood Urea Nitrogen 23(H) 10 - 20 mg/dL [facility] Creatinine 0.78(L) 0.80 - 1.50 mg/dL [facility] Sodium 141 135 - 145 mmol/L [facility] Potassium 4.0 3.5 - 5.0 mmol/L [facility] Comment: Please note: ??Patients with WBC >100,000 may have falsely elevated Potassium levels. ??For accurate Potassium quantification in these patients send serum separator tube (gold top) for subsequent determinations. ??Contact the Clinical Chemistry Laboratory if there are any questions. Chloride 108(H) 98 - 107 mmol/L [facility] Carbon Dioxide 24 22 - 31 mmol/L [facility] Anion Gap 9 5 - 15 mmol/L [facility] Calcium 8.6 8.5 - 10.5 mg/dL [facility] Est Glomerular Filtration Rate 91 >=60 mL/min/1. 73 m?? [facility] Comment: [...] MD CHEMISTRY ORDERABL ES Performing Organization Address [facility]/ZIP Co de Phone Number [facility] [place] [address] * (ABNORMAL) Differential, Automated (06/01/2022 12:00 AM EDT) Neutrophil % 64.6 % [facility] Neutrophil Absolute 5.60 1.70 - 6.10 x10(3)/mc L [facility] Lymph % 22.4 % [facility] Lymphocytes Abs 1.9 0.9 - 3.2 x10(3)/mc L [facility] Monocyte % 9.5 % [facility] Monocyte Abs 0.8 0.3 - 0.9 x10(3)/mc L [facility] Eos % 2.1 % [facility] Eosinophils Abs 0.2 0.0 - 0.4 x10(3)/mc L [facility] Basophil % 0.6 % [facility] Baso Absolute 0.0 0.0 - 0.1 x10(3)/mc L [facility] Immature Gran % 0.80 % [facility] Comment: Immature granulocytes(IG's)percentage and absolute count will include metamyelocytes, myelocytes, and promyelocytes. Blood smears from CBCs yielding IG's will be scanned manually for concordance. If this scan disagrees with the automated IG or if promyelocytes are noted, a manual differential will be performed. Immature Gran Absolute 0.07(H) 0.00 - 0.04 x10(3)/mc L [facility] Blood 06/01/2022 06/01/2022 12: 10 AM EDT Narrative Resulting Agency Comment Spec In Lab Arpita Valle MD HEMATOLOGY ORDERABLE S Performing Organization Address City/[facility]/ZIP Co de Phone Number [facility] [place] [address] * (ABNORMAL) Hemogram (06/01/2022 12:00 AM EDT) Pathologist [facility] White Blood Cell 8.7 4.0 - 9.5 x10(3)/mc L [facility] Red Blood Cell 2.77(L) 4.58 - 5.54 x10(6)/mc L [facility] Hemoglobin 8.6(L) 13.7 - 16.5 g/dL [facility] Hematocrit 25.7(L) 40.5 - 48.5 % [facility] Mean Cell Volume 92.8 82.9 - 93.1 fL [facility] Mean Cell Hemoglobin 31.0 27.5 - 32.1 pg [facility] Mean Cell Hemoglobin Concentration 33.5 32.0 - 35.7 g/dL [facility] Platelet 260 145 - 357 x10(3)/ L [facility] RDW Standard Deviation 51.9(H) 36.0 - 45.0 [facility] RDW coefficient of variation 15.5(H) 11.4 - 13.8 % [facility] Mean Platelet Volume 10.4 7.6 - 12.9 fL [facility] NRBC% auto 0.0 % [facility] NRBC Absolute 0.000 0.000 - 0.000 x10(3)/ L [facility] Blood 06/01/2022 06/01/2022 12: 10 AM EDT Narrative Resulting Agency Comment Spec In Lab Arpita Valle MD HEMATOLOGY ORDERABLE S [facility] [place] [address] * (ABNORMAL) Differential, Automated (05/31/2022 9:17 PM EDT) Pathologist [facility] Neutrophil % 59.6 % [facility] Neutrophil Absolute 3.98 1.70 - 6.10 x10(3)/ L [facility] Lymph % 27.5 % [facility] Lymphocytes Abs 1.8 0.9 - 3.2 x10(3)/ L [facility] Monocyte % 9.1 % [facility] Monocyte Abs 0.6 0.3 - 0.9 x10(3)/[facility] Eos % 2.4 % [facility] Eosinophils Abs 0.2 0.0 - 0.4 x10(3)/[facility] Basophil % 0.7 % [facility] Baso Absolute 0.0 0.0 - 0.1 x10(3)/[facility] Immature Gran % 0.70 % [facility] Comment: Immature granulocytes(IG's)percentage and absolute count will include metamyelocytes, myelocytes, and promyelocytes. Blood smears from CBCs yielding IG's will be scanned manually for concordance. If this scan disagrees with the automated IG or if promyelocytes are noted, a manual differential will be performed. Immature Gran Absolute 0.05(H) 0.00 - 0.04 x10(3)/[facility] Blood 05/31/2022 9:17 PM EDT 05/31/2022 9:25 PM EDT Narrative Resulting Agency Comment Spec In Lab Arpita Valle MD HEMATOLOGY ORDERABLE S [facility] [place] [address] * (ABNORMAL) Hemogram (05/31/2022 9:17 PM EDT) White Blood Cell 6.7 4.0 - 9.5 x10(3)/[facility] Red Blood Cell 2.74(L) 4.58 - 5.54 x10(6)/ L [facility] Hemoglobin 8.5(L) 13.7 - 16.5 g/dL [facility] Hematocrit 25.7(L) 40.5 - 48.5 % [facility] Mean Cell Volume 93.8(H) 82.9 - 93.1 fL [facility] Mean Cell Hemoglobin 31.0 27.5 - 32.1 pg [facility] Mean Cell Hemoglobin Concentration 33.1 32.0 - 35.7 g/dL [facility] Platelet 233 145 - 357 x10(3)/mc L [facility] RDW Standard Deviation 51.9(H) 36.0 - 45.0 [facility] RDW coefficient of variation 15.3(H) 11.4 - 13.8 % [facility] Mean Platelet Volume 10.3 7.6 - 12.9 [facility] NRBC% auto 0.0 % [facility] NRBC Absolute 0.000 0.000 - 0.000 x10(3)/mc L [facility] Blood 05/31/2022 9:17 PM EDT 05/31/2022 9:25 PM EDT Narrative Resulting Agency Comment Spec In Lab Arpita Valle MD HEMATOLOGY ORDERABLE S [facility] [place] [address] * Transfuse RBC (05/31/2022 7:36 PM EDT) Dominique Hinds MD NURSING TREATMENT OR DERABLES - BLOOD ADMIN * Transfuse RBC (05/31/2022 7:36 PM EDT) Dominique Hinds MD NURSING TREATMENT OR DERABLES - BLOOD ADMIN * UPPER GI ENDOSCOPY (05/31/2022 3:37 PM EDT) UPPER GI ENDOSCOPY [facility] Endoscopy ___ Procedure Date: 05/31/2022 3:37 PM ? Patient Name: Koko Zamora ? Date of : 1940 ? Age: 81 ? Order #: [id number] ? Instrument Name: [id number] ? ___ Procedure: ? Upper GI endoscopy Indications: ? Melena, Suspected upper ? gastrointestinal bleeding Providers: ? Torrey Munoz, ? Vani Wei RN, Juhi Fajardo, ? Alannah Hutchinson, Guidance Secretary Referring MD: ?Dominique Hinds Medicines: ? Propofol [...] Procedure Code(s): ? --- Professional --- ? 20180, Esophagogastroduode noscopy, ? flexible, transoral; with control [...] stomach ? and duodenum CPT copyright 2021 [employer]. All rights reserved. The codes documented in this report are preliminary and upon research physician review may be revised to meet current [...] who have questions please contact the health vocational childcare teacher that requested your imaging first. ? Narrative 05/31/2022 2:39 PM EDT EXAMINATION: CT ABDOMEN AND PELVIS WWO CONTRAST (GI BLEED) CLINICAL HISTORY: Significant Hb drop. Unknown source. has had a [facility] with stent placed and revascularization [...] patients who have questions please contactthe health vocational childcare teacher that requested your imaging first. Dominique Hinds MD IMG CT ORDERABLES * Type and Screen Validity (05/31/2022 1:43 PM EDT) T&S only valid at [facility]ATORY Comment:This Type and Screen result is only valid at the [facility] Blood 05/31/2022 1:43 PM EDT 05/31/2022 1:57 PM EDT Narrative Resulting Agency Comment Spec In Lab Dominique Hinds MD BLOOD BANK LAB ORDER NICK [facility] [place] [address] * ABORH Recheck Status (05/31/2022 1:43 PM EDT) ABORH Type Recheck Completed [facility] Blood 05/31/2022 1:43 PM EDT 05/31/2022 1:57 PM EDT Narrative Resulting Agency Comment Spec In Lab Dominique Hinds MD BLOOD BANK LAB ORDER NICK [facility] [place] [address] * Antibody screen (05/31/2022 1:43 PM EDT) Ab Screen Interp Negative [facility] Expires at [id number] on: 06/03/2022 [facility] Blood 05/31/2022 1:43 PM EDT 05/31/2022 1:57 PM EDT Narrative Resulting Agency Comment Spec In Lab Dominique Hinds MD BLOOD BANK LAB ORDER NICK [facility] [place] [address] * ABO/Rh Typing (05/31/2022 1:43 PM EDT) ABORH Type O Pos [facility] Blood 05/31/2022 1:43 PM EDT 05/31/2022 1:57 PM EDT Narrative Resulting Agency Comment Spec In Lab Dominique Hinds MD BLOOD BANK LAB ORDER NICK [facility] [place] [address] * Prepare RBC (05/31/2022 1:35 PM EDT) Dispensed? Yes [facility] Blood 05/31/2022 1:35 PM EDT 05/31/2022 1:30 PM EDT Dominique Hinds MD BLOOD BANK PRODUCT O RDERABLES [facility] [place] [address] * Prepare RBC (05/31/2022 1:25 PM EDT) Dispensed? Yes [facility] Blood 05/31/2022 1:25 PM EDT 05/31/2022 1:23 PM EDT Dominique Hinds MD BLOOD BANK PRODUCT O RDERABLES Performing Organization Address City/[facility]/ZIP Co de Phone Number [facility] [place] [address] * (ABNORMAL) Differential, Automated (05/31/2022 12:44 PM EDT) Neutrophil % 62.0 % [facility] Neutrophil Absolute 4.71 1.70 - 6.10 x10(3)/mc L [facility] Lymph % 24.1 % [facility] Lymphocytes Abs 1.8 0.9 - 3.2 x10(3)/mc L [facility] Monocyte % 10.8 % [facility] Monocyte Abs 0.8 0.3 - 0.9 x10(3)/mc L [facility] Eos % 1.6 % [facility] Eosinophils Abs 0.1 0.0 - 0.4 x10(3)/mc L [facility] Basophil % 0.7 % [facility] Baso Absolute 0.0 0.0 - 0.1 x10(3)/mc L [facility] Immature Gran % 0.80 % [facility] Comment: Immature granulocytes(IG's)percentage and absolute count will include metamyelocytes, myelocytes, and promyelocytes. Blood smears from CBCs yielding IG's will be scanned manually for concordance. If this scan disagrees with the automated IG or if promyelocytes are noted, a manual differential will be performed. Immature Gran Absolute 0.06(H) 0.00 - 0.04 x10(3)/ L [facility] Blood 05/31/2022 12:4 4 PM EDT 05/31/2022 12:57 PM EDT Narrative Resulting Agency Comment Spec In Lab Brittany Ramirez MD HEMATOLOGY ORDERABLE S [facility] [place] [address] * (ABNORMAL) Hemogram (05/31/2022 12:44 PM EDT) White Blood Cell 7.6 4.0 - 9.5 x10(3)/[facility] Red Blood Cell 2.11(L) 4.58 - 5.54 x10(6)/[facility] Hemoglobin 6.9(L) 13.7 - 16.5 g/dL [facility] Hematocrit 20.8(L) 40.5 - 48.5 % [facility] Mean Cell Volume 98.6(H) 82.9 - 93.1 fL [facility] Mean Cell Hemoglobin 32.7(H) 27.5 - 32.1 pg [facility] Mean Cell Hemoglobin Concentration 33.2 32.0 - 35.7 g/dL [facility] Platelet 255 145 - 357 x10(3)/[facility] RDW Standard Deviation 47.7(H) 36.0 - 45.0 fL [facility] RDW coefficient of variation 13.4 11.4 - 13.8 % [facility] Mean Platelet Volume 10.7 7.6 - 12.9 fL [facility] NRBC% auto 0.0 % [facility] NRBC Absolute 0.000 0.000 - 0.000 x10(3)/[facility] Blood 05/31/2022 12:4 4 PM EDT 05/31/2022 12:57 PM EDT Narrative Resulting Agency Comment Spec In Lab Brittany Ramirez MD HEMATOLOGY ORDERABLE S [facility] [address] [place] [address] * (ABNORMAL) BLOOD GAS 2 VENOUS (05/31/2022 11:24 AM EDT) pH, Venous 7.38 7.32 - 7.42 [facility] PCO2, Venous 40(L) 41 - 51 mmHg [facility] PO2, Venous 18(L) 25 - 40 mmHg [facility] Bicarbonate, Venous 23.3 mmol/L [facility] Base Excess, Venous -1.8 mmol/L [facility] Hgb Blood Gas 7.0(L) 13.7 - 16.5 g/dL [facility] Oxyhemoglobin, Venous 24.3 % [facility] Carboxyhemoglob in, Venous 1.4 % [facility] Comment: Nonsmokers: 0.5-1.5% COHB Smokers: Variable, but usually less than 10% Toxic: 20-30% COHB Lethal: Greater than 60% COHB Methemoglobin, Venous 1.7(H) <=1.5 % [facility] [...] [facility] Gluc Whole Bld 204(H) 65 - 199 mg/dL [facility] Comment:Diabetes: >=200 mg/d L plus symptoms Lactate WB 1.4 0.5 - 2.2 mmol/L [facility] Blood Gas Source Venous [facility] Blood 05/31/2022 11:2 4 AM EDT 05/31/2022 11:24 AM EDT Dominique Hinds MD POINT OF CARE TEST O RDERABLES Performing Organization Address [facility] Co de Phone Number [facility] [place] [address] * TSH Skipwith (05/31/2022 11:20 AM EDT) Thyroid Stimulating Hormone 1.67 0.27 - 4.20 mcIU/mL [facility] Comment: Reference Interval (mcIU/mL): Females: ??First Trimester: 0.23-3.88 ??Second Trimester: 0.22-3.90 ??Third Trimester: 0.44-4.66 Blood 05/31/2022 11:2 0 AM EDT 05/31/2022 11:28 AM EDT Narrative Resulting Agency Comment Spec In Lab Dominique Hinds MD CHEMISTRY ORDERABLES Performing Organization Address [facility] de Phone Number [facility] [place] [address] * XR Chest PA & Lateral (Generic) [...] who have questions please contact the health vocational childcare teacher that requested your imaging first. [...] patients who have questions please contactthe health vocational childcare teacher that requested your imaging first. Dominique Hinds MD IMG DX ORDERABLES * Lipase (05/31/2022 10:50 AM EDT) Pathologist [facility] Lipase 41 0 - 60 unit/L [facility] Blood Venous Draw / Unknown 05/31/2022 10:50 AM EDT 05/31/2022 11:11 AM EDT Narrative Resulting Agency Comment Spec In Lab Zain Champion MD CHEMISTRY ORD ERABLES Performing Organization Address City/[facility] Co de Phone Number [facility] [place] [address] * (ABNORMAL) Hepatic Function Panel (05/31/2022 10:50 AM EDT) Protein, Total 6.4 6.1 - 8.0 g/dL [facility] Albumin 4.1 3.2 - 5.2 g/dL [facility] Aspartate Aminotransferase 24 0 - 39 unit/L [facility] Alanine Aminotransferase 44 0 - 55 unit/L [facility] Alkaline Phosphatase 63 40 - 130 unit/L [facility] Bilirubin, Total <0.2(L) 0.2 - 1.3 mg/dL [facility] Bilirubin, Direct 0.1 0.0 - 0.3 mg/dL [facility] Blood Venous Draw / Unknown 05/31/2022 10:50 AM EDT 05/31/2022 11:11 AM EDT Narrative Resulting Agency Comment Spec In Lab Zain Champion MD CHEMISTRY ORD ERABLES [facility] [place] [address] * Blue Tube HOLD (05/31/2022 10:50 AM EDT) [facility] Blue Hold Sample in lab. [facility] Blood Venous Draw / Unknown 05/31/2022 10:50 AM EDT 05/31/2022 11:05 AM EDT Brittany Ramirez MD HEMATOLOGY ORDERABLE S Performing Organization Address City/[facility] Co de Phone Number [facility] [place] [address] * (ABNORMAL) Differential, Automated (05/31/2022 10:50 AM EDT) [facility] Neutrophil % 66.9 % [facility] Neutrophil Absolute 5.58 1.70 - 6.10 x10(3)/mc L [facility] Lymph % 22.2 % [facility] Lymphocytes Abs 1.8 0.9 - 3.2 x10(3)/mc L [facility] Monocyte % 7.8 % [facility] Monocyte Abs 0.6 0.3 - 0.9 x10(3)/mc L [facility] Eos % 1.2 % [facility] Eosinophils Abs 0.1 0.0 - 0.4 x10(3)/mc L [facility] Basophil % 0.7 % [facility] Baso Absolute 0.1 0.0 - 0.1 x10(3)/mc L [facility] Immature Gran % 1.20 % [facility] Comment: Immature granulocytes(IG's)percentage and absolute count will include metamyelocytes, myelocytes, and promyelocytes. Blood smears from CBCs yielding IG's will be scanned manually for concordance. If this scan disagrees with the automated IG or if promyelocytes are noted, a manual differential will be performed. Immature Gran Absolute 0.10(H) 0.00 - 0.04 x10(3)/ L [facility] Blood 05/31/2022 10:5 0 AM EDT 05/31/2022 11:03 AM EDT Narrative Resulting Agency Comment Spec In Lab Brittany Ramirez MD HEMATOLOGY ORDERABLE S [facility] [place] [address] * (ABNORMAL) Hemogram (05/31/2022 10:50 AM EDT) White Blood Cell 8.3 4.0 - 9.5 x10(3)/[facility] LABOR[facility] Red Blood Cell 2.26(L) 4.58 - 5.54 x10(6)/[facility] Hemoglobin 7.4(L) 13.7 - 16.5 g/dL [facility] Hematocrit 22.3(L) 40.5 - 48.5 % [facility] Mean Cell Volume 98.7(H) 82.9 - 93.1 [facility] Mean Cell Hemoglobin 32.7(H) 27.5 - 32.1 pg [facility] Mean Cell Hemoglobin Concentration 33.2 32.0 - 35.7 g/dL [facility] Platelet 283 145 - 357 x10(3)/[facility] RDW Standard Deviation 47.0(H) 36.0 - 45.0 [facility] RDW coefficient of variation 13.4 11.4 - 13.8 % [facility] Mean Platelet Volume 10.8 7.6 - 12.9 [facility] NRBC% auto 0.0 % [facility] NRBC Absolute 0.000 0.000 - 0.000 x10(3)/ L [facility] Blood 05/31/2022 10:5 0 AM EDT 05/31/2022 11:03 AM EDT Narrative Resulting Agency Comment Spec In Lab Brittany Ramirez MD HEMATOLOGY ORDERABLE S [facility] [place] [address] * Phosphorus (05/31/2022 10:50 AM EDT) Phosphorus 3.2 2.5 - 4.5 mg/dL [facility] Blood 05/31/2022 10:5 0 AM EDT 05/31/2022 11:03 AM EDT Narrative Resulting Agency Comment Spec In Lab Dominique Hinds MD CHEMISTRY ORDERABLES Performing Organization Address [facility] Co de Phone Number [facility] [place] [address] * Magnesium (05/31/2022 10:50 AM EDT) Magnesium 0.93 0.69 - 1.07 mmol/L [facility] Blood 05/31/2022 10:5 0 AM EDT 05/31/2022 11:03 AM EDT Narrative Resulting Agency Comment Spec In Lab Dominique Hinds MD CHEMISTRY ORDERABLES Performing Organization Address City/[facility]/ZIP Co de Phone Number [facility] [place] [address] * (ABNORMAL) pro-Brain Natriuretic Peptide (05/31/2022 10:50 AM EDT) NT-proBNP 1,077(H) <=449 pg/mL [facility] Blood 05/31/2022 10:5 0 AM EDT 05/31/2022 11:03 AM EDT Narrative Resulting Agency Comment Spec In Lab Dominique Hinds MD CHEMISTRY ORDERABLES Performing Organization Address City/[facility]/ZIP Co de Phone Number [facility] [place] [address] * Troponin (05/31/2022 10:50 AM EDT) [facility] Troponin-T <0.01 0.00 - 0.00 ng/mL [facility] Comment: The 99th percentile [...] ischemia ?? New or presumed new significant [place]-yhikmou-O wave (ST-T) changes or new left bundle [...] additional sample may be indicated. Reference: [employer] Definition of Myocardial Infarction. Journal of the [place] [employer] 2012;60:1581-98 Blood 05/31/2022 10:5 0 AM EDT 05/31/2022 11:03 AM EDT Narrative Resulting Agency Comment Spec In Lab Dominique Hinds MD CHEMISTRY ORDERABLES [facility] [place] [address] * (ABNORMAL) Basic Metabolic Panel (non-fasting) (05/31/2022 10:50 AM EDT) [facility] Glucose 223(H) 65 - 199 mg/dL [facility] Comment:Diabetes: >=200 mg/d L plus symptoms Blood Urea Nitrogen 39(H) 10 - 20 mg/dL [facility] Creatinine 0.91 0.80 - 1.50 mg/dL [facility] Sodium 140 135 - 145 mmol/L [facility] Potassium 4.1 3.5 - 5.0 mmol/L [facility] Comment: Please note: ??Patients with WBC >100,000 may have falsely elevated Potassium levels. ??For accurate Potassium quantification in these patients send serum separator tube (gold top) for subsequent determinations. ??Contact the Clinical Chemistry Laboratory if there are any questions. Chloride 107 98 - 107 mmol/L [facility] Carbon Dioxide 23 22 - 31 mmol/L [facility] Anion Gap 10 5 - 15 mmol/L [facility] Calcium 9.1 8.5 - 10.5 mg/dL [facility] Est Glomerular Filtration Rate 86 >=60 mL/min/1. 73 m?? [facility] Comment: [...] In Lab Dominique Hinds MD CHEMISTRY ORDERABLES [facility] [place] [address] * EKG 12 Lead (05/31/2022 10:11 AM EDT) Ventricular rate 106 BPM MUSE SYSTEM QRS Duration 122 ms MUSE SYSTEM Q-T Interval 368 ms MUSE SYSTEM QTC Calculated (Bezet) 488 ms MUSE SYSTEM Calculated R Irvine -43 degrees MUSE SYSTEM Calculated T [place] 109 degrees MUSE SYSTEM INTERPRETATION Atrial fibrillation [...] interpretation Confirmed by fellow MD Mckeon Benjamin ([id number]) on 06/02/2022 8:36:21 PM Confirmed by MD [...] RN)[phone] (Rate/Dose Verify - Provider: Raven Barbour RN)[phone] (New Bag - Provider: Raven Barbour RN)[phone] (Stopped - Provider: Maranda Ribeiro RN) PRN [...] documented in this encounter Care Teams Director Immunology Relationship Specialty Start Date End Date Bobby Das MD [address] [place] [address] [place] [address] PCP - General 10/02/10 documented as of this encounter
--- OUTSIDE RECORDS SUMMARY | 2024-09-30 12:09 | XMS_ITS | Encounter Summary ---
Author Organization [facility] Address [facility] [address] Care Team Providers Care Substation Wireman Name Role Phone Bobby Das MD Primary Care Provider [phone] Encounter Details Date Type Department Care Team (Late st Contact Info) Description 06/25/2022 11:30 AM EDT - 06/25/2022 12:30 PM EDT [place] [address] Giovani Ponce MD [facility] [place] [address] EGD, UPPER GI ENDOSCOPY (WRVU 2.09) Social [...] the day after the procedure, use an mtne-dst-wzozoeq spray to numb your throat. Sucking on [...] occurs, please contact your Doctor. Please call [phone] before 8pm Mon-Fri with problems, questions or concerns. If you call after 8pm or on weekends, call the Hospital at [phone] and ask to speak to the Car Rental Sales Assistant application support administrator and the bread wrapper operator will contact that person for you. When should you call for help? Call [phone] anytime you think you may need emergency [...] any problems. Where can you learn more? [facility] View your After Visit Summary and more online at [email or web address] If you would like to provide feedback about your hospital experience, please call the Office of Patient and Family Relations at . If you have received this After Visit Summary in error, please immediately return it in person to the department, or notify the [facility] Privacy Office by calling toll free at between the hours of 8AM and 5PM to arrange for our retrieval of the documents at no cost to you. Content Version: 12.2 ?? [phone] [employer]. Care instructions adapted under license by [facility]. If you have questions about a medical condition or this instruction, always ask your healthcare professional. [employer] disclaims any warranty or liability for your [...] occurs, please contact your Doctor. Please call [phone] before 8pm Mon-Fri with problems, questions or concerns. If you call after 8pm or on weekends, call the Hospital at [phone] and ask to speak to the Car Rental Sales Assistant application support administrator and the bread wrapper operator will contact that person for you. [...] any problems. Where can you learn more? [facility] View your After Visit Summary and more online at [email or web address] If you would like to provide feedback about your hospital experience, please call the Office of Patient and Family Relations at . If you have received this After Visit Summary in error, please immediately return it in person to the department, or notify the [facility] Privacy Office by calling toll free at between the hours of 8AM and 5PM to arrange for our retrieval of the documents at no cost to you. Content Version: 12.2 ?? [phone] [employer]. Care instructions adapted under license by [facility]. If you have questions about a medical condition or this instruction, always ask your healthcare professional. [employer] disclaims any warranty or liability for your use of this information. documented in this encounter Medications at Time of Discharge Medication Sig Dispensed Refills Start Date End Date fluticasone propionate (FLONASE) 50 mcg/actuation [place], Suspension 1 spray by Each Nare route [...] ischemia I99.8 ??? Coronary artery disease involving [place] coronary artery of [place] heart without angina pectoris I25.10 ??? HFrEF [...] Comments Small Bowel Endoscopy, Past 2Nd Duod ([id number]) 06/25/2022 11:01 AM EDT melena +./- Colonoscopy, Flexible W Control Bleeding, Any Method ([id number]) 06/25/2022 11:01 AM EDT melena +./- Upper GI Endoscopy, Diagnostic ([id number]) 06/25/2022 11:01 AM EDT melena +./- UPPER GI ENDOSCOPY Routine 06/25/2022 10 :33 AM EDT COLONOSCOPY Routine 06/25/2022 10:33 AM EDT documented in this encounter Results * UPPER GI ENDOSCOPY (06/25/2022 10:33 AM EDT) [facility] UPPER GI ENDOSCOPY [facility] Endoscopy ___ Procedure Date: 06/25/2022 10:33 AM ? Patient Name: Koko Zamora ? Date of : 1940 ? Age: 81 ? Order #: [id number] ? Instrument Name: [id number]- [id number] ? ___ Procedure: ? Upper GI endoscopy [...] * COLONOSCOPY (06/25/2022 10:33 AM EDT) COLONOSCOPY [facility] Endoscopy ___ Procedure Date: 06/25/2022 10:33 AM ? Patient Name: Koko Zamora ? Date of : 1940 ? Age: 81 ? Order #: [id number] ? Instrument Name: EC-760P- [id number] ? ___ Procedure: ? Colonoscopy Indications: ? [...] Procedure Code(s): ? --- Professional --- ? 31183, Colonoscopy, flexible; with ? control of bleeding, [...] of sigmoid ? colon CPT copyright 2020 [employer]. All rights reserved. The codes documented in this report are preliminary and upon dance critic review may be revised to meet current [...] RN) documented in this encounter Care Teams Substation Wireman Relationship Specialty Start Date End Date Bobby Das MD [address] [place] [address] [place] [address] PCP - General 10/02/10 documented as of this encounter
--- OUTSIDE RECORDS SUMMARY | 2024-09-30 12:09 | XMS_ITS | Encounter Summary ---
Author Organization [facility] Address [facility] [place] [address] Care Team Providers Care Azure Developer Name Role Phone Bobby Das MD Primary Care Provider [phone] Reason for Visit * Reason Comments Skin Lesion * Consultation (Routine) - Closed Specialty Diagnoses / Procedures Referred By Colby quezada Referred To Contact Dermatology Diagnoses Lesion on right eye = hx of skin cancer Procedures Lesion on right eye = hx of skin cancer Bobby Das MD [address] [place] [address] [facility] Dermatology [address] [place] [address] Referral ID Status Reason Start Date Expiration Date Visits Re quested Visits Authorized [id number] Closed 04/22/2022 04/22/2023 1 1 Encounter Details Date Type Department Care Team (Late st Contact Info) Description 06/10/2022 11:00 AM EDT Office Visit Dermatology at [facility] [address] [place] [address] Loretta Cohen MD [facility] DR JENNY [place] [address] Neoplasm of unspecified behavior of [...] nevi N SCC N BCC 2015: right anglican, BCC s/p mohs 09/2018: right eyebrow, BCC [...] Patient is referred to the clinic at [facility] for the following: - Lesion on the [...] N/A RTC: Pending pathology []Note routed to statistical secretary []Recall placed in scheduling system []Appointment scheduled at checkout Scribe attestation: Sidney Higgins and Loretta Gomez CMA performed the documentation for thisencounter in the presence of and acting as a scribe for Noel Burgos MD. I performed the above scribed service and agree with the accuracy of the documentation in this encounter. Reviewed and signed by: Noel Burgos MD Dermatology [facility] * Loretta Cohen MD - 06/10/2022 11:00 AM EDT DERMATOLOGY TELEPHONE NOTE Koko Zamora 06/17/2022 [id number] Reason for call: Discuss biopsy results I [...] PM EDT 06/10/2022 1:20 PM EDT Narrative [facility] - 06/10/2022 1:20 PM EDT Specimen requisition ordered. ??Separate Pathology report to follow Loretta Cohen MD PATHOLOGY/CYTOLOGY O RADHA [facility] [place] [address] * Surgical Pathology Report (06/10/2022 11:43 AM EDT) Final Diagnosis [id number] ? Location: [facility] The signing pathologist has (i) examined the relevant preparation(s) for the specimen(s) and (ii) rendered or confirmed the diagnosis(es). . ?Surgical Pathology DIAGNOSIS Right lateral eyebrow, skin shave biopsy: - ??Basal cell carcinoma, nodular pattern, transected at the peripheral and deep specimen edges Electronically signed by: ?Delroy CARCAMO, PhD, Ian Verified: ??06/12/2022 14:33 ??Dermatopatholog ist Performed at: ??-[facility] Dept. of Pathology, [place], [place] SPECIMEN(S) SUBMITTED A - right lateral [...] labeled A1. ??shb 06/12/2022 2:33 PM EDT [facility] SPECIMEN FROM SKIN / Unknown 06/10/2022 11:43 AM EDT 06/10/2022 11:43 AM EDT Loretta Cohen MD PATHOLOGY/CYTOLOGY O RDERABLES [facility] [place] [phone] documented in this encounter Visit Diagnoses Diagnosis Neoplasm of unspecified behavior of bone, soft tissue, and skin documented in this encounter Care Teams Azure Developer Relationship Specialty Start Date End Date Bobby Das MD [address] [place] [address] [place] [phone] PCP - General 10/02/10 documented as of this encounter
--- OUTSIDE RECORDS SUMMARY | 2024-09-30 12:09 | XMS_ITS | Encounter Summary ---
Author Organization [facility] Address [facility] [place] [address] Care Team Providers Care Lotus Notes Developer Name Role Phone Bobby Das MD Primary Care Provider [phone] Encounter Details Date Type Department Care Team (Late st Contact Info) Description 06/24/2022 Telephone [place] [address] Alan August MD [facility] [place] [address] Social History Tobacco Use Types Packs/Day Years [...] data. I was contacted again today by [facility] who was requesting here and back endoscopic [...] and no diverticulosis. This was done at [facility]. HgB 8.6 today. There has not [...] on filedocumented in this encounter Care Teams Lotus Notes Developer Relationship Specialty Start Date End Date Bobby Das MD [address] [place] [address] [place] [address] PCP - General 10/02/10 documented as of this encounter
--- OUTSIDE RECORDS SUMMARY | 2024-09-30 12:09 | XMS_ITS | Encounter Summary ---
Author Organization [place] [place] [address] Care Team Providers Care First Aid Instructor Name Role Phone Bobby Das MD Primary Care Provider [phone] Reason for Referral * Diagnostic Test (Routine) - Closed Specialty Diagnoses / Procedures Referred By Colby quezada Referred To Contact Cardiology Diagnoses HFrEF (heart failure with reduced ejection fraction) Procedures Echocardiogram Transthoracic Bel Blanco MD [facility] [place] [address] [facility] [place] [address] Referral ID Status Reason Start Date Expiration Date V isits Requested Visits Authorized [id number] Closed Specialty Service Requested 06/13/2022 06/13/2023 1 1 Reason for Visit * Consultation (Routine) - Closed Specialty Diagnoses / Procedures Referred By Colby quezada Referred To Contact Cardiology Diagnoses HFrEF (heart failure with reduced ejection fraction) Paroxysmal atrial fibrillation Post-hospital follow-up, s/p PCI with stenting, heart failure Nasrin Parra PA [facility] [place] [address] [facility] Cardiology [address] [place], [place] [address] Referral ID Status Reason Start Date Expiration Date V isits Requested Visits Authorized [id number] Closed Consult, Test & Treat 05/21/2022 05/21/2023 1 1 Encounter Details Date Type Department Care Team (Late st Contact Info) Description 06/13/2022 10:00 AM EDT Office Visit Cardiology at [address] [address] Bel Blanco MD [facility] CARDIOLOGY [place], [place] [phone] Coronary artery disease involving [place] coronary artery of [place] heart without angina pectoris; HFrEF (heart failure [...] original note were not included. [facility] [place] [address] CARDIOLOGY OUTPATIENT PROGRESS NOTE PRIMARY CARE PROVIDER: Bobby Das MD REFERRING PROVIDER: Nasrin Parra PROBLEM LIST: Patient Active Problem List Diagnosis ??? Coronary artery disease involving [place] coronary artery of [place] heart without angina pectoris 05/20/22 Cath * [...] valve prolapse) s/p repair Surgery done at [facility] in 2000 ??? Hypertriglyceridemia [...] 3 ??? fluticasone propionate (FLONASE) 50 mcg/actuation [place], Suspension 1 spray by Each Nare route [...] healing well. Markedly diminished left radial pulse. COLLECTION MANAGER: Normal mentation. Psych: Appropriate affect. Labs: [...] therapy possibly including AV node ablation and CHARCOAL KILN BURNER-D. Coronary artery disease involving [place] coronary artery of [place] heart without angina pectoris His coronary disease [...] for consideration of AV node ablation and CHARCOAL KILN BURNER-D Patient Instructions ??? Your new medication is [...] for consideration of AV node ablation and CHARCOAL KILN BURNER-D * Assessment & Plan Note - Bel Blanco MD - 06/13/2022 10:22 AM EDT Associated Problem(s): Coronary artery disease involving [place] coronary artery of [place] heart without angina pectoris His coronary disease [...] therapy possibly including AV node ablation and CHARCOAL KILN BURNER-D. documented in this encounter Plan of Treatment [...] 1940 ? Height: 173 cm ? Account: [id number] Age: 81 yrs ? Weight: 76 kg Gender: Male ?BSA: 1.9 m2 Ordering Physician: BEL BLANCO Referring Physician: BEL BLANCO Performed By: Salud Estrada Reason For Study: HFrEF Exam Location: [facility]. Interpretation Summary Technically limited imaging. Left ventricular [...] performed 05/16/22, findings are overall similar. Procedure Complete-02499. Satisfactory quality. Irregular rhythm. Left Ventricle Left [...] Date: :03 PMBP: 111/59 mmHg Patient Location: [id number] : 1940 Height: 173 cm Account: [id number] Age: 81 yrs Weight: 76 kg Gender: Male BSA: 1.9 m2 Ordering Physician: BEL BLANCO Referring Physician: BEL BLANCO Performed By: Salud Estrada Reason For Study: HFrEF Exam Location: [facility]. Interpretation Summary Technically limited imaging. Left ventricular [...] TTE performed 05/16/22,findings are overall similar. Procedure Complete-69611. Satisfactory quality. Irregular rhythm. Left Ventricle Left [...] Visit Diagnoses Diagnosis Coronary artery disease involving [place] coronary artery of [place] heart without angina pectoris HFrEF (heart failure with reduced ejection fraction) Permanent atrial fibrillation Atrial fibrillation HFrEF (heart failure with reduced ejection fraction) documented in this encounter Care Teams First Aid Instructor Relationship Specialty Start Date End Date Bobby Das MD [address] [place] [address] [place] [address] PCP - General 10/02/10 documented as of this encounter
--- OUTSIDE RECORDS SUMMARY | 2024-09-30 12:09 | XMS_ITS | Encounter Summary ---
[place] [address] Care Team Providers Care Detective Bowling Alley Name Role Phone Bobby Das MD Primary Care Provider [phone] Reason for Visit * Auth/Cert Specialty Diagnoses / Procedures Referred By Colby t Referred To Contact Diagnoses GIB (gastrointestinal bleeding) [place] [address] [facility] Referral ID Status Reason Start Date Expiration Date Visits Re quested Visits Authorized [id number] 1 1 Encounter Details Date Type Department Care Team (Late st Contact Info) Description 05/31/2022 4:03 PM EDT Anesthesia Event [place] [address] Elmer Johnson MD [facility] [place] [address] Yogi Dawkins CRNA [facility] [place] [address] Anesthesia Record Procedure Summary Procedure Name Responsible [...] 1300; median cubital vein (antecubital fossa), right; jpkc-ycy-ciwwsl catheter system; 20 gauge; no longer indicated, [...] Procedure Summary Date: 05/31/22 Room / Location: [facility] ENDO 3 / [facility] ENDOSCOPY Anesthesia Start: 1602 Anesthesia Stop: 1656 Procedures: EGD, UPPER GI ENDOSCOPY (N/A Trunk) EGD, W CONTROL OF BLEEDING, ANY METHOD Diagnosis: (melena) Surgeons: Giovani Ponce MD Responsible Provider: Elmer Johnson MD Anesthesia Type: MAC ASA Status: 3 All Anesthesia Providers: Anesthesiologist: Elmer Johnson MD ELECTRICAL ESTIMATOR: Yogi Dawkins CRNA Vitals Value Taken Time BP 95/62 05/31/22 1720 Temp Pulse Resp 18 05/31/22 1720 SpO2 99 % 05/31/22 1720 Pain Level 0 05/31/22 1720 Patient [facility]: [facility]U/[facility] Level of Consciousness: Awake and [...] IR Biopsy Spine 07/20/2019 Bobby Marshall MD [facility] INTERVENTIONL RAD ??? IR VERTEBROPLASTY LUMBAR MULTIPLE LEVELS 07/20/2019 IR Vertebroplasty Lumbar Multiple Levels 07/20/2019 Bobby Marshall MD [facility] INTERVENTIONL RAD ??? IR VERTEBROPLASTY THORACIC SINGLE LEVEL 10/25/2020 IR Vertebroplasty Thoracic Single Level 10/25/2020 Matt Chisholm MD [facility] INTERVENTIONL RAD ??? PRO EMBLC/THRMBC FEMORAL POPLITEAL AORTO-ILIAC ARTERY Left 05/15/2022 EMBOLECTOMY OR THROMBECTOMY, FEMOROPOPLITEAL, AORTOILIAC ARTERY BY LEG INCISION (WRVU 19.48) performed by Fito Summers MD at [facility] MAIN OR ??? PRO UPPER GI ENDOSCOPY, CTRL BLEED 05/31/2022 EGD, W CONTROL OF BLEEDING, ANY METHOD performed by Giovani Ponce MD at [facility] ENDOSCOPY ??? PRO UPPER GI ENDOSCOPY, DIAGNOSTIC N/A 05/31/2022 EGD, UPPER GI ENDOSCOPY performed by Giovani Ponce MD at [facility] ENDOSCOPY Social History Tobacco Use ??? [...] risks discussed with patient. Plan discussed with ELECTRICAL ESTIMATOR. Anesthesia Screening documented in this encounter Plan [...] mg documented in this encounter Care Teams Detective Bowling Alley Relationship Specialty Start Date End Date Bobby Das MD [address] [place] [address] [place] [address] PCP - General 10/02/10 documented as of this encounter
--- OUTSIDE RECORDS SUMMARY | 2024-09-30 12:09 | XMS_ITS | Encounter Summary ---
Author Organization [facility] [place] [address] Care Team Providers Care Day Care Provider Name Role Phone Bobby Das MD Primary Care Provider [phone] Encounter Details Date Type Department Care Team (Late st Contact Info) Description 06/23/2022 Telephone [place] [address] Alan August MD [facility] DR GASTROENTER[place] [address] Social History Tobacco Use Types Packs/Day Years [...] included. DIVISION OF GASTROENTEROLOGY & HEPATOLOGY TRANSFER SANDY CALL Name: Koko Zamora Date: 06/23/2022 Time: 2:27 AM Referring Location: [facility] Referring Provider: Shahram Urena DC HPI: This [...] filedocumented in this encounter Care Teams Day Care Provider Relationship Specialty Start Date End Date Bobby Das MD [address] [place] [address] [place] [address] PCP - General 10/02/10 documented as of this encounter
--- OUTSIDE RECORDS SUMMARY | 2024-09-30 12:09 | XMS_ITS | Encounter Summary ---
Author Organization [facility] [place] [address] Care Team Providers Care Stud Master/Mistress Name Role Phone Bobby Das MD Primary Care Provider [phone] Encounter Details Date Type Department Care Team (Late st Contact Info) Description 06/13/2022 7:30 AM EDT Tech Visit [place] [address] Edson [place] Limb ischemia Social History [...] Text Report Department: Vascular Surgery Lab Patient: [id number] (ETTA BAH) CPT: 66801 Referring Physician: FITO SUMMERS ?? 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 Diabetes mellitus: no Findings: Right ?Pressure [...] disorder documented in this encounter Care Teams Stud Master/Mistress Relationship Specialty Start Date End Date Bobby Das MD [address] [place] [address] [place] [address] PCP - General 10/02/10 documented as of this encounter
--- OUTSIDE RECORDS SUMMARY | 2024-09-30 12:09 | XMS_ITS | Encounter Summary ---
Author Organization Formerly [facility] [place] [address] Care Team Providers Care Hot Dip Plater Name Role Phone Bobby Das MD Primary Care Provider [phone] Encounter Details Date Type Department Care Team (Late st Contact Info) Description 06/19/2022 Telephone Cardiology at [address] [phone] Kourtney Jimenez, RN Social History Tobacco Use [...] Rehab [facility] Forward to Dr Redi documented in this encounter Plan of Treatment Not on file documented as of this encounter Visit Diagnoses Not on filedocumented in this encounter Care Teams Hot Dip Plater Relationship Specialty Start Date End Date Bobby Das MD [address] [place] [address] [place] [address] PCP - General 10/02/10 documented as of this encounter
--- OUTSIDE RECORDS SUMMARY | 2024-09-30 12:09 | XMS_ITS | Encounter Summary ---
Author Organization [facility] [place] [address] Care Team Providers Care Technology Lab Teacher Name Role Phone Bobby Das MD Primary Care Provider [phone] Reason for Referral * Consultation (Routine) - Closed Specialty Diagnoses / Procedures Referred By Colby quezada Referred To Contact Gastroenterology Diagnoses Adenomatous polyp of colon, unspecified part of colon Colonoscopy 06/25/22, discussed w/Dr. Ponce needs to be seen in clinic to discuss polyp / removal iso plavix & DOAC Isi Celaya MD [facility] [place] [address] [facility] [address] [place] [address] Referral ID Status Reason Start Date Expiration Date V isits Requested Visits Authorized [id number] Closed Consult, Test & Treat 06/25/2022 06/25/2023 1 1 Scheduling Instructions To be seen in ~2mo Encounter Details Date Type Department Care Team (Late st Contact Info) Description 06/25/2022 Orders [place] [address] Isi Celaya MD [facility] [place] [address] Adenomatous polyp of colon, unspecified part of [...] colon documented in this encounter Care Teams Technology Lab Teacher Relationship Specialty Start Date End Date Bobby Das MD [address] [place] [address] [place] [phone] PCP - General 10/02/10 documented as of this encounter
--- OUTSIDE RECORDS SUMMARY | 2024-09-30 12:09 | XMS_ITS | Encounter Summary ---
Author Organization Formerly [facility] [place] [address] Care Team Providers Care K 12 Principal Name Role Phone Abby Das MD Primary Care Provider [phone] Encounter Details Date Type Department Care Team (Late st Contact Info) Description 06/25/2022 11:01 AM EDT Anesthesia [place] [address] Abby Aguilar MD [facility] [place] [address] David Gill CRNA [facility] [place] [address] Anesthesia Record Procedure Summary Procedure Name Responsible [...] 1046; median cubital vein (antecubital fossa), left; bgvf-zev-ogovzr catheter system; 18 gauge; Present on admission; LDA not present upon assessment; 12/08/22; 17406/25/22 1046 by Mame Peterson RN 12/08/22 1742 by Margy Knapp (RETIRED) Peripheral IV Line - Single Lumen 06/25/22; 1046; great saphenous vein (medial side of leg), right; sowk-cbu-fsmijk catheter system; Anatomical Landmarks; 18 gauge; Present [...] Procedure Summary Date: 06/25/22 Room / Location: [facility] 4 / [facility] Anesthesia Start: 1101 Anesthesia Stop: 1202 Procedures: EGD, UPPER GI ENDOSCOPY (N/A Trunk) COLONOSCOPY; W CONTROL OF BLEEDING, ANY METHOD (N/A Trunk) SMALL BOWEL ENTEROSCOPY (N/A Trunk) Diagnosis: (melena +./-) Surgeons: Giovani Ponce MD Responsible Provider: Abby Aguilar MD Anesthesia Type: MAC ASA Status: 3 All Anesthesia Providers: Anesthesiologist: Abby Aguilar MD SAFETY TECHNICIAN: David Gill CRNA Vitals Value Taken Time [...] Date Noted ??? Coronary artery disease involving [place] coronary artery of [place] heart without angina pectoris 06/13/2022 ??? HFrEF [...] IR Biopsy Spine 07/20/2019 Abby Marshall MD [facility] ??? IR VERTEBROPLASTY LUMBAR MULTIPLE LEVELS 07/20/2019 IR Vertebroplasty Lumbar Multiple Levels 07/20/2019 Abby Marshall MD [facility] RAD ??? IR VERTEBROPLASTY THORACIC SINGLE LEVEL 10/25/2020 IR Vertebroplasty Thoracic Single Level 10/25/2020 Matt Chisholm MD [facility] RAD ??? PRO EMBLC/THRMBC FEMORAL POPLITEAL AORTO-ILIAC ARTERY Left 05/15/2022 EMBOLECTOMY OR THROMBECTOMY, FEMOROPOPLITEAL, AORTOILIAC ARTERY BY LEG INCISION (WRVU 19.48) performed by Fito Summers MD at [facility] MAIN OR ??? PRO UPPER GI ENDOSCOPY, CTRL BLEED 05/31/2022 EGD, W CONTROL OF BLEEDING, ANY METHOD performed by Giovani Ponce MD at [facility] ??? PRO UPPER GI ENDOSCOPY, DIAGNOSTIC N/A 05/31/2022 EGD, UPPER GI ENDOSCOPY performed by Giovani Ponce MD at [facility] Social History Tobacco Use ??? [...] risks discussed with patient. Plan discussed with SAFETY TECHNICIAN. Anesthesia Screening documented in this encounter Plan [...] mg documented in this encounter Care Teams K 12 Principal Relationship Specialty Start Date End Date Abby Das MD [address] [place] [address] [place] [address] PCP - General 10/02/10 documented as of this encounter
--- OUTSIDE RECORDS SUMMARY | 2024-09-30 12:09 | XMS_ITS | Encounter Summary ---
Author Organization [facility] [place] [address] Care Team Providers Care Child Care Provider Name Role Phone Bobby Das MD Primary Care Provider [phone] Encounter Details Date Type Department Care Team (Late st Contact Info) Description 07/01/2022 Telephone Dermatology at [facility] [address] [place] [phone] Zainab Sommer I, [facility] Social History Tobacco Use Types Packs/Day Years [...] in this encounter Care Teams Child Care Provider Relationship Specialty Start Date End Date Bobby Das MD [address] [place] [address] [place] [address] PCP - General 10/02/10 documented as of this encounter
--- OUTSIDE RECORDS SUMMARY | 2024-09-30 12:09 | XMS_ITS | Encounter Summary ---
Author Organization On License Of [facility] Address [facility] [place] [address] Care Team Providers Care Housing Court Judge Name Role Phone Bobby Das MD Primary Care Provider [phone] Encounter Details Date Type Department Care Team (Late st Contact Info) Description 08/15/2022 Telephone [place] [address] Isi Celaya MD [facility] DR [place]STRO[place] [address] Social History Tobacco Use Types Packs/Day Years [...] not included. DIVISION OF GASTROENTEROLOGY & [facility] CALL Name: Koko Zamora Date: 08/15/2022 Time: 5:51 PM Referring Location: [facility] Mr. Zamora is a 81yo M w/PMH [...] w/recurrent symptomatic anemia. He presented today to [facility] w/3 weeks SOB, generalized fatigue and weakness. 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
--- OUTSIDE RECORDS SUMMARY | 2024-09-30 12:09 | XMS_ITS | Encounter Summary ---
Author Organization [facility] Address [facility] [place] [address] Care Team Providers Care Traffic Controller Cable Name Role Phone Bobby Das MD Primary Care Provider [phone] Reason for Referral * Consultation (Routine) - Closed Specialty Diagnoses / Procedures Referred By Colby quezada Referred To Contact Dermatology Diagnoses Basal cell carcinoma (BCC) of right forehead Loretta Cohen MD [facility] [place] [address] Jace Lynn MD [facility] [place] [address] Referral ID Status Reason Start Date Expiration Date V isits Requested Visits Authorized [id number] Closed Consult, Test & Treat 06/17/2022 06/17/2023 1 1 Encounter Details Date Type Department Care Team (Late st Contact Info) Description 06/17/2022 Orders Only Dermatology at [facility] [address] [place] [address] Loretta Cohen MD [facility] [place] [address] Basal cell carcinoma (BCC) of [...] forehead documented in this encounter Care Teams Traffic Controller Cable Relationship Specialty Start Date End Date Bobby Das MD [address] [place] [address] [place] [phone] PCP - General 10/02/10 documented as of this encounter
--- OUTSIDE RECORDS SUMMARY | 2024-09-30 12:09 | XMS_ITS | Encounter Summary ---
Author Organization [facility] Address [facility] [place] [address] Care Team Providers Care Acid Purification Equipment Operator Name Role Phone Bobby Das MD Primary Care Provider [phone] Encounter Details Date Type Department Care Team (Latest Contact Info) Description 06/25/2022 10:32 AM EDT - 06/25/2022 12:59 PM EDT Hospital Encounter [place] [address] Giovani Ponce MD [facility] [place] [address] Discharge Disposition: Another HCF/Not Defined Social History [...] the day after the procedure, use an ewos-xly-qgcrhca spray to numb your throat. Sucking on [...] occurs, please contact your Doctor. Please call [phone] before 8pm Mon-Fri with problems, questions or concerns. If you call after 8pm or on weekends, call the Hospital at [phone] and ask to speak to the Masonry Installer supervisor air conditioning installer and the central office operator supervisor will contact that person for you. When should you call for help? Call 311 anytime you think you may need emergency [...] any problems. Where can you learn more? [facility] View your After Visit Summary and more online at [email or web address] If you would like to provide feedback about your hospital experience, please call the Office of Patient and Family Relations at . If you have received this After Visit Summary in error, please immediately return it in person to the department, or notify the [facility] Privacy Office by calling toll free at between the hours of 8AM and 5PM to arrange for our retrieval of the documents at no cost to you. Content Version: 12.2 ?? 5811-9158 [facility]. Care instructions adapted under license by [facility]. If you have questions about a medical condition or this instruction, always ask your healthcare professional. [facility] disclaims any warranty or liability for your [...] occurs, please contact your Doctor. Please call [phone] before 8pm Mon-Fri with problems, questions or concerns. If you call after 8pm or on weekends, call the Hospital at [phone] and ask to speak to the Masonry Installer supervisor air conditioning installer and the central office operator supervisor will contact that person for you. When should you call for help? Call 201 anytime you think you may need emergency [...] any problems. Where can you learn more? [facility]- View your After Visit Summary and more online at [email or web address] If you would like to provide feedback about your hospital experience, please call the Office of Patient and Family Relations at . If you have received this After Visit Summary in error, please immediately return it in person to the department, or notify the [facility] Privacy Office by calling toll free at between the hours of 8AM and 5PM to arrange for our retrieval of the documents at no cost to you. Content Version: 12.2 ?? 0411-1304 [employer]. Care instructions adapted under license by [facility]. If you have questions about a medical condition or this instruction, always ask your healthcare professional. [facility] disclaims any warranty or liability for your use of this information. documented in this encounter Medications at Time of Discharge Medication Sig Dispensed Refills Start Date End Date fluticasone propionate (FLONASE) 50 mcg/actuation [place], Suspension 1 spray by Each Nare route [...] ischemia I99.8 ??? Coronary artery disease involving [place] coronary artery of [place] heart without angina pectoris I25.10 ??? [...] Comments Small Bowel Endoscopy, Past [address] ([address]) 06/25/2022 11:01 AM EDT melena +./- Colonoscopy, Flexible W Control Bleeding, Any Method (31781) 06/25/2022 11:01 AM EDT melena +./- Upper GI Endoscopy, Diagnostic (93134) 06/25/2022 11:01 AM EDT melena +./- UPPER GI ENDOSCOPY Routine 06/25/2022 10 :33 AM EDT COLONOSCOPY Routine 06/25/2022 10:33 AM EDT documented in this encounter Results * UPPER GI ENDOSCOPY (06/25/2022 10:33 AM EDT) UPPER GI ENDOSCOPY [facility] Endoscopy ___ Procedure Date: 06/25/2022 10:33 AM ? Patient Name: Koko Zamora ? Date of : 1940 ? Age: 81 ? Order #: [id number] ? Instrument Name: [id number]- [id number] ? ___ Procedure: ? Upper GI endoscopy [...] * COLONOSCOPY (06/25/2022 10:33 AM EDT) COLONOSCOPY [facility] Endoscopy ___ Procedure Date: 06/25/2022 10:33 AM ? Patient Name: Koko Zamora ? Date of : 1940 ? Age: 81 ? Order #: [id number] ? Instrument Name: EC-760P- [id number] ? ___ Procedure: ? Colonoscopy Indications: ? [...] Procedure Code(s): ? --- Professional --- ? 56435, Colonoscopy, flexible; with ? control of bleeding, [...] of sigmoid ? colon CPT copyright 2020 [employer]. All rights reserved. The codes documented in this report are preliminary and upon hand lens polisher review may be revised to meet current [...] DION) documented in this encounter Care Teams Acid Purification Equipment Operator Relationship Specialty Start Date End Date Bobby Das MD [address] [place] [address] [place] [address] PCP - General 10/02/10 documented as of this encounter
--- OUTSIDE RECORDS SUMMARY | 2024-09-30 12:10 | XMS_ITS | Encounter Summary ---
Author Organization Formerly [facility] [place] [address] Care Team Providers Care Success Coach Name Role Phone Bobby Das MD Primary Care Provider [phone] Encounter Details Date Type Department Care Team (Late st Contact Info) Description 05/28/2022 Telephone [place] [phone] Dominique Bolivar, RN Social History Tobacco Use [...] RN - 05/28/2022 1:20 PM EDT This commercial underwriter returned phone call due to 's [...] cardiac history and symptoms of lightheadedness, this commercial underwriter recommended the patient be evaluated. Discussed going to local ED ([facility]) where staff could also phone vascular and/or cardiac at D- for planning. The patient agreed to do this after he has lunch. documented in this encounter Plan of Treatment Not on file documented as of this encounter Visit Diagnoses Not on filedocumented in this encounter Care Teams Success Coach Relationship Specialty Start Date End Date Bobby Das MD [address] [place] [address] [place] [phone] PCP - General 10/02/10 documented as of this encounter
--- OUTSIDE RECORDS SUMMARY | 2024-09-30 12:10 | XMS_ITS | Encounter Summary ---
[place] [address] Care Team Providers Care Emissions Repair Technician Name Role Phone Abby Das MD Primary Care Provider [phone] Reason for Visit * Reason Comments Dizziness * Auth/Cert Specialty Diagnoses / Procedures Referred By Colby t Referred To Contact Diagnoses GIB (gastrointestinal bleeding) Mata Fish MD [facility] [place] [address] [facility] Referral ID Status Reason Start Date Expiration Date Visits Re quested Visits Authorized [id number] 1 1 Encounter Details Date Type Department Care Team (Late st Contact Info) Description 05/31/2022 3:48 PM EDT - 05/31/2022 4:18 PM EDT Surgery [place] [address] Giovani Ponce MD [facility] [place] [address] EGD, UPPER GI ENDOSCOPY (WRVU 2.09) Social [...] Valle MD - 06/02/2022 12:48 PM EDT [facility] Medicine - Discharge Summary Patient Name: [...] switching to a differentblood thinner with the registered nurse surgical services outpatient. Call your doctor or seek [...] to a different blood thinner with your registered nurse surgical services as an outpatient Stopped Medications - Aspirin - Valsartan - Speak with your registered nurse surgical services about the timing of restarting this Follow-up Appointments Future Appointments Date Time Provider Department Center 06/10/2022 11:00 AM Loretta Cohen MD [facility] 06/13/2022 7:30 AM Edson Lagos [place] [facility] V[facility] LAB [facility] 06/13/2022 8:00 AM Fito Summers MD [...] inpatient physician through the [facility] Retail Branch Manager [phone]. Issues after hours and on weekends will be handled by the Hospitalist staff on-call. Your Primary Care Provider Abby Das MD [phone] Future Appointments and Orders Future Appointments and Orders Future Appointments Provider Department Dept Phone 06/10/2022 11:00 AM Loretta Cohen MD Dermatology [facility] Arrive at: Rn Paralegal [address] [place] [address] 06/13/2022 7:30 AM Edson Lagos [place] V[facility] Lab at [facility] Arrive at: Rn Paralegal Area [phone] 06/13/2022 8:00 AM Fito Summers MD Vascular Surgery at [facility] Arrive at: Rn Paralegal Area 06/13/2022 10:00 AM Alan Reid MD Cardiology at [facility] Arrive at: Rn Paralegal Area [phone] For questions regarding this document or issues relating to this hospitalization on the Medical Service, please contact your inpatient physician through the [facility] Retail Branch Manager . Issues afterhours and on weekends will [...] switching to a differentblood thinner with the registered nurse surgical services outpatient. Call your doctor or seek [...] to a different blood thinner with your registered nurse surgical services as an outpatient Stopped Medications - Aspirin - Valsartan - Speak with your registered nurse surgical services about the timing of restarting this Follow-up Appointments Future Appointments Date Time Provider Department Center 06/10/2022 11:00 AM Loretta Cohen MD [facility] 06/13/2022 7:30 AM Edson [place]os [place] [facility] V[facility] LAB ILDA POWELL 06/13/2022 [...] inpatient physician through the [facility] Retail Branch Manager [phone]. Issues after hours and on weekends will be handled by the Hospitalist staff on-call. Your Primary Care Provider Abby Das MD [phone] documented in this encounter Medications at Time of Discharge Medication Sig Dispensed Refills Start Date End Date fluticasone propionate (FLONASE) 50 mcg/actuation [place], Suspension 1 spray by Each Nare route [...] spent >30 minutes (Day of Discharge Code 39173) involved in the final examination of the [...] were not included. Hospital Medicine Progress Note [place] Team - Pager #[phone] Admit Date: 05/31/2022 Name: Koko Zamora : [...] cardiology to discuss antiplatelet (ISO bleed and fci), following. ?? #CAD s/p stenting recently #HFrEF [...] Kurt Ames MD Internal Medicine, PGY-1 Medicine [place] Team #[id number] Associated attestation - John Jolley MD - [...] of two midnights or is on the [facility] inpatient only procedure list (status C) due to: GI Bleeding documented in this encounter H&P Notes * Yamilet Victor MD - 05/31/2022 4:33 PM EDT Images from the original note were not included. [facility] Medicine (#[id number]) History and Physical Patient info: Name: Koko Zamora : 1940 PCP: Abby Das MD PCP phone number: [phone] Date of Admission: 05/31/2022 ( Hospital Day [...] IR Biopsy Spine 07/20/2019 Abby Marshall MD [facility] INTERVENTIONL RAD ??? IR VERTEBROPLASTY LUMBAR MULTIPLE LEVELS 07/20/2019 IR Vertebroplasty Lumbar Multiple Levels 07/20/2019 Abby Marshall MD [facility] INTERVENTIONL RAD ??? IR VERTEBROPLASTY THORACIC SINGLE LEVEL 10/25/2020 IR Vertebroplasty Thoracic Single Level 10/25/2020 Matt Chisholm MD [facility] INTERVENTIONL RAD ??? PRO EMBLC/THRMBC FEMORAL POPLITEAL AORTO-ILIAC ARTERY Left 05/15/2022 EMBOLECTOMY OR THROMBECTOMY, FEMOROPOPLITEAL, AORTOILIAC ARTERY BY LEG INCISION (WRVU 19.48) performed by Fito Summers MD at [facility] MAIN OR No family history [...] 11 ??? fluticasone propionate (FLONASE) 50 mcg/actuation [place], Suspension as needed. ??? fluorouraciL (EFUDEX) 5 [...] Gas) No results found for: PHART, PO2ART, RDL4XMN, CFT0QZX Microbiology: N/A Pertinent radiology/diagnostic studies: Recent prior [...] 05/31/2022 3:58 PM EDT Norepinephrine pulled from [facility] for soft BPs. Upon arrival to [...] EDT Pt brought to XR by radiology physician assistant * Brittany Ramirez MD - 05/31/2022 10:40 [...] have questions please contact the health healthcare translator that requested your imaging first. Electronically signed by: Jl Zuluaga MD, [facility] ([phone]), at 05/31/2022 2:39 PM XR Chest PA [...] have questions please contact the health healthcare translator that requested your imaging first. Electronically signed by: Alan Brink MD, [facility] ([phone]), at 05/31/2022 11:33 AM ED Course as [...] soft blood pressures, MD made aware. 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 Patient reported blurry/hazy [...] [facility] [place] [address] INPATIENT CARDIOLOGY CONSULT NOTE Date of Consultation: 06/01/2022 Admit Date: 05/31/2022 Place of Service: IS86/IS86-A Referring Attending: DOMINIQUE HINDS COLEMAN W FRIEDMAN, HARLEY P Responsible Capacitor Assembler: Dr. [facility] Day 1 day Reason [...] IR Biopsy Spine 07/20/2019 Abby Marshall MD [facility] INTERVENTIONL RAD ??? IR VERTEBROPLASTY LUMBAR MULTIPLE LEVELS 07/20/2019 IR Vertebroplasty Lumbar Multiple Levels 07/20/2019 Abby Marshall MD [facility] INTERVENTIONL RAD ??? IR VERTEBROPLASTY THORACIC SINGLE LEVEL 10/25/2020 IR Vertebroplasty Thoracic Single Level 10/25/2020 Matt Chisholm MD [facility] INTERVENTIONL RAD ??? PRO EMBLC/THRMBC FEMORAL POPLITEAL AORTO-ILIAC ARTERY Left 05/15/2022 EMBOLECTOMY OR THROMBECTOMY, FEMOROPOPLITEAL, AORTOILIAC ARTERY BY LEG INCISION (WRVU 19.48) performed by Fito Summers MD at [facility] MAIN OR ALLERGIES: Allergies Allergen [...] time ??? fluticasone propionate (FLONASE) 50 mcg/actuation [place], Suspension 1 spray by Each Nare route [...] Neurology: Without focal deficit ECG: Echocardiogram: 05/16/[address] [facility] 05/20/2022 Coronary Angiography: Dominance: Right [...] catheter and a 3.5 Fr [place] [facility] [place] [address] 20 Mhz. Imaging was successful. Image [...] atmospheres. A premounted 2.75 x 30 mm [place] (AMPARO) was deployed with a maximum inflation [...] Unknown source. has had a [facility] with stent placed and revascularization [...] have questions please contact the health healthcare translator that requested your imaging first. Electronically signed by: Jl Zuluaga MD, [facility] ([phone]), at 05/31/2022 2:39 PM [facility] 48 Hrs-15 [...] have questions please contact the health healthcare translator that requested your imaging first. 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 Rossy Anaya MD [facility] Boot And Shoe Repairman, PGY-5 Inpatient Cardiology Consults Pager #[phone] Please check Qgenda for on-call cardiology consults [...] A&Ox 4. On room air. VSS. 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 Adequate urine output, urinal at bedside, flomax [...] 180 days) Any patient receiving care in [place] must abide by [place] law. The hierarchy [...] (i) The agent with financial power of mergers and acquisitions attorney or a conservator appointed in accordance [...] walker - rolling Home Address confirmed as: [address] [place] [id number] Social & Family Supports: All names listed below confirmed with patient as current and correct Extended Emergency Contact Information Primary Emergency Contact: Ursula Zamora Address: [address] [place] [id number] [facility] Relation: Spouse Current Care Provided by: [...] type* / Secondary Insurance: [facility] Secondary Insurance? (Only Medicare A&B): Yes ; Prescription Coverage: Yes Preferred Pharmacy: [id number] [address] [place] [address] [place] [id number] Status: Patient is a : No Primary Care Provider: Abby Das MD [phone] Patient/Caregiver Goals of Treatment: Patient plans to [...] with transition of care planning. ASH [place] Creative Manager [facility] Medicine/ Medical Specialties Pager- [phone] * Plan [...] Operative Note Patient Name: Koko Zamora : [id number] MR#: [id number] Case Date: 05/31/2022 Surgeon: Surgeon(s) and Role: [...] IR Biopsy Spine 07/20/2019 Abby Marshall MD [facility] INTERVENTIONL RAD ??? IR VERTEBROPLASTY LUMBAR MULTIPLE LEVELS 07/20/2019 IR Vertebroplasty Lumbar Multiple Levels 07/20/2019 Abby Marshall MD [facility] INTERVENTIONL RAD ??? IR VERTEBROPLASTY THORACIC SINGLE LEVEL 10/25/2020 IR Vertebroplasty Thoracic Single Level 10/25/2020 Matt Chisholm MD [facility] INTERVENTIONL RAD ??? PRO EMBLC/THRMBC FEMORAL POPLITEAL AORTO-ILIAC ARTERY Left 05/15/2022 EMBOLECTOMY OR THROMBECTOMY, FEMOROPOPLITEAL, AORTOILIAC ARTERY BY LEG INCISION (WRVU 19.48) performed by Fito Summers MD at [facility] MAIN OR SOCIAL HX: Social [...] sounds, tympanic to percussion RECTAL: performed with igniter assembler present, no overt masses, fissures, external [...] have questions please contact the health healthcare translator that requested your imaging first. Electronically signed by: Alan Brink MD, [facility] ([phone]), at 05/31/2022 11:[address] Abdomen & [...] PM EDT Upper Gi Endoscopy, Ctrl Bleed (24033) 05/31/2022 4:05 PM EDT melena Upper GI Endoscopy, Diagnostic (46821) 05/31/2022 4:05 PM EDT melena UPPER GI [...] 8:20 AM EDT) Neutrophil % 61.3 % [facility] Neutrophil Absolute 4.44 1.70 - 6.10 x10(3)/mc L [facility] Lymph % 25.2 % [facility] Lymphocytes Abs 1.8 0.9 - 3.2 x10(3)/[facility] Monocyte % 10.0 % [facility] Monocyte Abs 0.7 0.3 - 0.9 x10(3)/[facility] Eos % 2.1 % [facility] Eosinophils Abs 0.2 0.0 - 0.4 x10(3)/[facility] Basophil % 0.7 % [facility] Baso Absolute 0.0 0.0 - 0.1 x10(3)/[facility] Immature Gran % 0.70 % [facility] Comment: Immature granulocytes(IG's)percentage and absolute count will include metamyelocytes, myelocytes, and promyelocytes. Blood smears from CBCs yielding IG's will be scanned manually for concordance. If this scan disagrees with the automated IG or if promyelocytes are noted, a manual differential will be performed. Immature Gran Absolute 0.05(H) 0.00 - 0.04 x10(3)/[facility] Blood 06/02/2022 8:20 AM EDT 06/02/2022 8:25 AM EDT Narrative Resulting Agency Comment Spec In Lab Kurt Ames MD HEMATOLOGY ORDERABL ES [facility] [place] [address] * (ABNORMAL) Hemogram (06/02/2022 8:20 AM EDT) White Blood Cell 7.2 4.0 - 9.5 x10(3)/[facility] Red Blood Cell 2.74(L) 4.58 - 5.54 x10(6)/[facility] Hemoglobin 8.7(L) 13.7 - 16.5 g/dL [facility] Hematocrit 25.7(L) 40.5 - 48.5 % [facility] Mean Cell Volume 93.8(H) 82.9 - 93.1 fL [facility] Mean Cell Hemoglobin 31.8 27.5 - 32.1 pg [facility] Mean Cell Hemoglobin Concentration 33.9 32.0 - 35.7 g/dL [facility] Platelet 260 145 - 357 x10(3)/mc L [facility] RDW Standard Deviation 51.0(H) 36.0 - 45.0 fL [facility] RDW coefficient of variation 14.9(H) 11.4 - 13.8 % [facility] Mean Platelet Volume 10.0 7.6 - 12.9 fL [facility] NRBC% auto 0.0 % [facility] NRBC Absolute 0.000 0.000 - 0.000 x10(3)/mc L [facility] Blood 06/02/2022 8:20 AM EDT 06/02/2022 8:25 AM EDT Narrative Resulting Agency Comment Spec In Lab Kurt Ames MD HEMATOLOGY ORDERABL ES [facility] [place] [address] * Heparin (unfractionated) Level (06/02/2022 6:30 AM EDT) UF Heparin 0.39 IU/mL [facility] Comment: Heparin [...] MD HEMATOLOGY ORDERAB LES Performing Organization Address [facility] Co de Phone Number [facility] [place] [address] * Heparin (unfractionated) Level (06/02/2022 12:30 AM [...] MD HEMATOLOGY ORDERAB LES Performing Organization Address [facility] de Phone Number [facility] [place] [address] * Magnesium (06/02/2022 12:30 AM EDT) Magnesium 0.83 0.69 - 1.07 mmol/L [facility] Blood 06/02/2022 12:3 0 AM EDT 06/02/2022 12:40 AM EDT Narrative Resulting Agency Comment Spec In Lab Yamilet Victor MD CHEMISTRY ORDERABL ES Performing Organization Address [facility]/State/ZIP Co de Phone Number [facility] [place] [address] * (ABNORMAL) Basic Metabolic Panel (non-fasting) (06/02/2022 12:30 AM EDT) Glucose 151 65 - 199 mg/dL [facility] Comment:Diabetes: >=200 mg/d L plus symptoms Blood Urea Nitrogen 12 10 - 20 mg/dL [facility] Creatinine 0.71(L) 0.80 - 1.50 mg/dL [facility] [...] questions. Chloride 108(H) 98 - 107 mmol/L [facility] Carbon Dioxide 24 22 - 31 mmol/L [facility] Anion Gap 10 5 - 15 mmol/L [facility] Calcium 8.1(L) 8.5 - 10.5 mg/dL [facility] Est Glomerular Filtration Rate 93 >=60 mL/min/1. 73 m?? [facility] [...] MD CHEMISTRY ORDERABL ES Performing Organization Address City/[facility]/ZIP Co de Phone Number [facility] [place] [address] * (ABNORMAL) Differential, Automated (06/01/2022 7:29 PM EDT) Neutrophil % 68.8 % [facility] Neutrophil Absolute 5.34 1.70 - 6.10 x10(3)/mc L [facility] Lymph % 19.6 % [facility] Lymphocytes Abs 1.5 0.9 - 3.2 x10(3)/ L [facility] Monocyte % 8.1 % [facility] Monocyte Abs 0.6 0.3 - 0.9 x10(3)/ L [facility] Eos % 1.8 % [facility] Eosinophils Abs 0.1 0.0 - 0.4 x10(3)/ L [facility] Basophil % 0.8 % [facility] Baso Absolute 0.1 0.0 - 0.1 x10(3)/ L [facility] Immature Gran % 0.90 % [facility] Comment: Immature granulocytes(IG's)percentage and absolute count will include metamyelocytes, myelocytes, and promyelocytes. Blood smears from CBCs yielding IG's will be scanned manually for concordance. If this scan disagrees with the automated IG or if promyelocytes are noted, a manual differential will be performed. Immature Gran Absolute 0.07(H) 0.00 - 0.04 x10(3)/ L [facility] Blood 06/01/2022 7:29 PM EDT 06/01/2022 7:29 PM EDT Narrative Resulting Agency Comment Spec In Lab Kurt Ames MD HEMATOLOGY ORDERABL ES Performing Organization Address City/[facility]/ZIP Co de Phone Number [facility] [place] [address] * (ABNORMAL) Hemogram (06/01/2022 7:29 PM EDT) White Blood Cell 7.8 4.0 - 9.5 x10(3)/ L [facility] Red Blood Cell 2.65(L) 4.58 - 5.54 x10(6)/mc L [facility] Hemoglobin 8.3(L) 13.7 - 16.5 g/dL [facility] Hematocrit 24.8(L) 40.5 - 48.5 % [facility] Mean Cell Volume 93.6(H) 82.9 - 93.1 fL [facility] Mean Cell Hemoglobin 31.3 27.5 - 32.1 pg [facility] Mean Cell Hemoglobin Concentration 33.5 32.0 - 35.7 g/dL [facility] Platelet 263 145 - 357 x10(3)/[facility] RDW Standard Deviation 52.8(H) 36.0 - 45.0 [facility] RDW coefficient of variation 15.4(H) 11.4 - 13.8 % [facility] Mean Platelet Volume 10.4 7.6 - 12.9 fL [facility] NRBC% auto 0.0 % [facility] NRBC Absolute 0.000 0.000 - 0.000 x10(3)/[facility] Blood 06/01/2022 7:29 PM EDT 06/01/2022 7:29 PM EDT Narrative Resulting Agency Comment Spec In Lab Kurt Ames MD HEMATOLOGY ORDERABL ES [facility] [place] [address] * Heparin (unfractionated) Level (06/01/2022 7:29 PM [...] Lab Yamilet Victor MD HEMATOLOGY ORDERAB LES [facility] [place] [address] * (ABNORMAL) Heparin (unfractionated) Level (06/01/2022 11:32 AM EDT) UF Heparin 1.05(Crit ical) IU/mL [facility] Comment: Critical Result called [...] MD HEMATOLOGY ORDERAB LES Performing Organization Address City/[facility]/ZIP Co de Phone Number [facility] [place] [address] * (ABNORMAL) Differential, Automated (06/01/2022 5:56 AM EDT) Neutrophil % 62.7 % [facility] Neutrophil Absolute 6.11(H) 1.70 - 6.10 x10(3)/mc L [facility] Lymph % 23.5 % [facility] Lymphocytes Abs 2.3 0.9 - 3.2 x10(3)/ L [facility] Monocyte % 10.0 % [facility] Monocyte Abs 1.0(H) 0.3 - 0.9 x10(3)/ L [facility] Eos % 2.2 % [facility] Eosinophils Abs 0.2 0.0 - 0.4 x10(3)/ L [facility] Basophil % 0.9 % [facility] Baso Absolute 0.1 0.0 - 0.1 x10(3)/mc L [facility] Immature Gran % 0.70 % [facility] Comment: Immature granulocytes(IG's)percentage and absolute count will include metamyelocytes, myelocytes, and promyelocytes. Blood smears from CBCs yielding IG's will be scanned manually for concordance. If this scan disagrees with the automated IG or if promyelocytes are noted, a manual differential will be performed. Immature Gran Absolute 0.07(H) 0.00 - 0.04 x10(3)/ L [facility] Blood 06/01/2022 5:56 AM EDT 06/01/2022 6:05 AM EDT Narrative Resulting Agency Comment Spec In Lab Arpita Valle MD HEMATOLOGY ORDERABLE S [facility] [place] [address] * (ABNORMAL) Hemogram (06/01/2022 5:56 AM EDT) White Blood Cell 9.7(H) 4.0 - 9.5 x10(3)/mc L [facility] Red Blood Cell 2.83(L) 4.58 - 5.54 x10(6)/mc L [facility] Hemoglobin 9.0(L) 13.7 - 16.5 g/dL [facility] Hematocrit 26.7(L) 40.5 - 48.5 % [facility] Mean Cell Volume 94.3(H) 82.9 - 93.1 fL [facility] Mean Cell Hemoglobin 31.8 27.5 - 32.1 pg [facility] Mean Cell Hemoglobin Concentration 33.7 32.0 - 35.7 g/dL [facility] Platelet 250 145 - 357 x10(3)/mc L [facility] RDW Standard Deviation 54.3(H) 36.0 - 45.0 fL [facility] RDW coefficient of variation 15.9(H) 11.4 - 13.8 % [facility] Mean Platelet Volume 10.5 7.6 - 12.9 fL [facility] NRBC% auto 0.0 % [facility] NRBC Absolute 0.000 0.000 - 0.000 x10(3)/mc L [facility] Blood 06/01/2022 5:56 AM EDT 06/01/2022 6:05 AM EDT Narrative Resulting Agency Comment Spec In Lab Arpita Valle MD HEMATOLOGY ORDERABLE S Performing Organization Address City/[facility]/ZIP Co de Phone Number [facility] [place] [address] * Heparin (unfractionated) Level (06/01/2022 4:30 AM [...] MD HEMATOLOGY ORDERAB LES Performing Organization Address City/State/[facility] Co de Phone Number [facility] [place] [address] * (ABNORMAL) Urinalysis with reflex Culture (06/01/2022 4:00 AM EDT) Pathologist [facility] Glucose, Urine Dipstick 500(Critical ) Negative mg/dL [facility] Comment: Urinalysis result NOT critical without a combination of Glucose greater than or equal to 500 mg/dL AND Ketones greater than or equal to 80 mg/dL Protein, Urine Dipstick Negative Negative mg/dL [facility] Bilirubin, Urine Dipstick Negative Negative mg/dL [facility] Comment: Clinical correlation required for positive Urine Bilirubin results as false positive may occur with some drugs and drug related products. If a false positive is suspected a serum total bilirubin should be considered if clinically indicated. Urobilinogen, Urine Dipstick Normal Normal mg/dL [facility] pH, Urn (dipstick) 6.0 5.0 - 8.0 [facility] Blood, Urine Dipstick Negative Negative mg/dL [facility] Ketone, Urine Dipstick Negative Negative mg/dL [facility] Nitrite, Urine Dipstick Negative Negative [facility] Leukocytes, Urine Dipstick Negative Negative mcL [facility] Appearance, Urine Dipstick Clear Clear [facility] Specific [place] Urine Automated >=1.030(A) 1.005 - 1.030 [facility] Color, Urine Dipstick Yellow Yellow [facility] Reflex to Culture No [facility] Clean Catch Urine 06/01/2022 4:00 AM EDT 06/01/2022 4:26 AM EDT Narrative Resulting Agency Comment Spec In Lab Yamilet Victor MD URINE ORDERABLES Performing Organization Address [facility] Phone Number [facility] [place] [address] * Magnesium (06/01/2022 1:00 AM EDT) Magnesium 0.93 0.69 - 1.07 mmol/L [facility] Blood 06/01/2022 1:00 AM EDT 06/01/2022 1:37 AM EDT Narrative Resulting Agency Comment Spec In Lab Yamilet Victor MD CHEMISTRY ORDERABL ES Performing Organization Address [facility] Co co Phone Number [facility] [place] [address] * (ABNORMAL) Basic Metabolic Panel (non-fasting) (06/01/2022 1:00 AM EDT) Glucose 148 65 - 199 mg/dL [facility] Comment:Diabetes: >=200 mg/d L plus symptoms Blood Urea Nitrogen 23(H) 10 - 20 mg/dL [facility] Creatinine 0.78(L) 0.80 - 1.50 mg/dL [facility] Sodium 141 135 - 145 mmol/L [facility] Potassium 4.0 3.5 - 5.0 mmol/L [facility] Comment: Please note: ??Patients with WBC >100,000 may have falsely elevated Potassium levels. ??For accurate Potassium quantification in these patients send serum separator tube (gold top) for subsequent determinations. ??Contact the Clinical Chemistry Laboratory if there are any questions. Chloride 108(H) 98 - 107 mmol/L [facility] Carbon Dioxide 24 22 - 31 mmol/L [facility] Anion Gap 9 5 - 15 mmol/L [facility] Calcium 8.6 8.5 - 10.5 mg/dL [facility] Est Glomerular Filtration Rate 91 >=60 mL/min/1. 73 m?? [facility] [...] Lab Yamilet Victor MD CHEMISTRY ORDERABL ES [facility] [place] [address] * (ABNORMAL) Differential, Automated (06/01/2022 12:00 AM EDT) Neutrophil % 64.6 % [facility] Neutrophil Absolute 5.60 1.70 - 6.10 x10(3)/mc L [facility] Lymph % 22.4 % [facility] Lymphocytes Abs 1.9 0.9 - 3.2 x10(3)/mc L [facility] Monocyte % 9.5 % [facility] Monocyte Abs 0.8 0.3 - 0.9 x10(3)/[facility] Eos % 2.1 % [facility] Eosinophils Abs 0.2 0.0 - 0.4 x10(3)/[facility] Basophil % 0.6 % [facility] Baso Absolute 0.0 0.0 - 0.1 x10(3)/[facility] Immature Gran % 0.80 % [facility] Comment: Immature granulocytes(IG's)percentage and absolute count will include metamyelocytes, myelocytes, and promyelocytes. Blood smears from CBCs yielding IG's will be scanned manually for concordance. If this scan disagrees with the automated IG or if promyelocytes are noted, a manual differential will be performed. Immature Gran Absolute 0.07(H) 0.00 - 0.04 x10(3)/[facility] Blood 06/01/2022 06/01/2022 12: 10 AM EDT Narrative Resulting Agency Comment Spec In Lab Arpita Valle MD HEMATOLOGY ORDERABLE S [facility] [place] [address] * (ABNORMAL) Hemogram (06/01/2022 12:00 AM EDT) White Blood Cell 8.7 4.0 - 9.5 x10(3)/[facility] Red Blood Cell 2.77(L) 4.58 - 5.54 x10(6)/[facility] Hemoglobin 8.6(L) 13.7 - 16.5 g/dL [facility] Hematocrit 25.7(L) 40.5 - 48.5 % [facility] Mean Cell Volume 92.8 82.9 - 93.1 fL [facility] Mean Cell Hemoglobin 31.0 27.5 - 32.1 pg [facility] Mean Cell Hemoglobin Concentration 33.5 32.0 - 35.7 g/dL [facility] Platelet 260 145 - 357 x10(3)/mc L [facility] RDW Standard Deviation 51.9(H) 36.0 - 45.0 fL [facility] RDW coefficient of variation 15.5(H) 11.4 - 13.8 % [facility] Mean Platelet Volume 10.4 7.6 - 12.9 fL [facility] NRBC% auto 0.0 % [facility] NRBC Absolute 0.000 0.000 - 0.000 x10(3)/mc L [facility] Blood 06/01/2022 06/01/2022 12: 10 AM EDT Narrative Resulting Agency Comment Spec In Lab Arpita Valle MD HEMATOLOGY ORDERABLE S [facility] [place] [address] * (ABNORMAL) Differential, Automated (05/31/2022 9:17 PM EDT) Neutrophil % 59.6 % [facility] Neutrophil Absolute 3.98 1.70 - 6.10 x10(3)/mc L [facility] Lymph % 27.5 % [facility] Lymphocytes Abs 1.8 0.9 - 3.2 x10(3)/mc L [facility] Monocyte % 9.1 % [facility] Monocyte Abs 0.6 0.3 - 0.9 x10(3)/mc L [facility] Eos % 2.4 % [facility] Eosinophils Abs 0.2 0.0 - 0.4 x10(3)/mc L [facility] Basophil % 0.7 % [facility] Baso Absolute 0.0 0.0 - 0.1 x10(3)/mc L [facility] Immature Gran % 0.70 % [facility] Comment: Immature granulocytes(IG's)percentage and absolute count will include metamyelocytes, myelocytes, and promyelocytes. Blood smears from CBCs yielding IG's will be scanned manually for concordance. If this scan disagrees with the automated IG or if promyelocytes are noted, a manual differential will be performed. Immature Gran Absolute 0.05(H) 0.00 - 0.04 x10(3)/ L [facility] Blood 05/31/2022 9:17 PM EDT 05/31/2022 9:25 PM EDT Narrative Resulting Agency Comment Spec In Lab Arpita Valle MD HEMATOLOGY ORDERABLE S [facility] [place] [address] * (ABNORMAL) Hemogram (05/31/2022 9:17 PM EDT) White Blood Cell 6.7 4.0 - 9.5 x10(3)/[facility] Red Blood Cell 2.74(L) 4.58 - 5.54 x10(6)/mc L [facility] Hemoglobin 8.5(L) 13.7 - 16.5 g/dL [facility] Hematocrit 25.7(L) 40.5 - 48.5 % [facility] Mean Cell Volume 93.8(H) 82.9 - 93.1 fL [facility] Mean Cell Hemoglobin 31.0 27.5 - 32.1 pg [facility] Mean Cell Hemoglobin Concentration 33.1 32.0 - 35.7 g/dL [facility] Platelet 233 145 - 357 x10(3)/ L [facility] RDW Standard Deviation 51.9(H) 36.0 - 45.0 fL [facility] RDW coefficient of variation 15.3(H) 11.4 - 13.8 % [facility] Mean Platelet Volume 10.3 7.6 - 12.9 fL [facility] NRBC% auto 0.0 % [facility] NRBC Absolute 0.000 0.000 - 0.000 x10(3)/mc L [facility] Blood 05/31/2022 9:17 PM EDT 05/31/2022 9:25 PM EDT Narrative Resulting Agency Comment Spec In Lab Arpita Valle MD HEMATOLOGY ORDERABLE S [facility] [place] [address] * Transfuse RBC (05/31/2022 7:36 PM EDT) Dominique Hinds MD NURSING TREATMENT OR DERABLES - BLOOD ADMIN * Transfuse RBC (05/31/2022 7:36 PM EDT) Dominique Hinds MD NURSING TREATMENT OR DERABLES - BLOOD ADMIN * UPPER GI ENDOSCOPY (05/31/2022 3:37 PM EDT) [facility] UPPER GI ENDOSCOPY [facility] Endoscopy ___ Procedure Date: 05/31/2022 3:37 PM ? Patient Name: Koko Zamora ? Date of : 1940 ? Age: 81 ? Order #: [id number] ? Instrument Name: [id number] ? ___ Procedure: ? Upper GI endoscopy Indications: ? Melena, Suspected upper ? gastrointestinal bleeding Providers: ? Giovani Ponce, Torrey Gannon, ? Vani Wei RN, Juhi Fajardo, ? Alannah Hutchinson, Advertising Columnist Referring MD: ?Dominique Hinds Medicines: ? Propofol [...] Procedure Code(s): ? --- Professional --- ? 34991, Esophagogastroduode noscopy, ? flexible, transoral; with control [...] in this report are preliminary and upon filbert grower review may be revised to meet current [...] have questions please contact the health healthcare translator that requested your imaging first. ? Electronically signed by: Jl Zuluaga MD, [facility] ([phone]), at 05/31/2022 2:39 PM Narrative 05/31/2022 2:39 [...] who have questions please contactthe health healthcare translator that requested your imaging first. Electronically signed by: Jl Zuluaga MD, [facility]([phone]), at 05/31/2022 2:39 PM Dominique Hinds MD IMG CT ORDERABLES * Type and Screen Validity (05/31/2022 1:43 PM EDT) [facility] T&S only valid at [facility] Comment:This Type and Screen result is only valid at the [facility] Blood 05/31/2022 1:43 PM EDT 05/31/2022 1:57 PM EDT Narrative Resulting Agency Comment Spec In Lab Dominique Hinds MD BLOOD BANK LAB ORDER NICK Performing Organization Address [facility] Co de Phone Number [facility] [place] [address] * ABORH Recheck Status (05/31/2022 1:43 PM EDT) [facility] ABORH Type Recheck Completed [facility] Blood 05/31/2022 1:43 PM EDT 05/31/2022 1:57 PM EDT Narrative Resulting Agency Comment Spec In Lab Dominique Hinds MD BLOOD BANK LAB ORDER NICK Performing Organization Address [facility]/ZIP Co de Phone Number [facility] [place] [address] * Antibody screen (05/31/2022 1:43 PM EDT) [facility] Ab Screen Interp Negative [facility] Expires at [id number] on: 06/03/2022 [facility] Blood 05/31/2022 1:43 PM EDT 05/31/2022 1:57 PM EDT Narrative Resulting Agency Comment Spec In Lab Dominique Hinds MD BLOOD BANK LAB ORDER NICK [facility] [place] [address] * ABO/Rh Typing (05/31/2022 1:43 PM EDT) ABORH Type O Pos [facility] Blood 05/31/2022 1:43 PM EDT 05/31/2022 1:57 PM EDT Narrative Resulting Agency Comment Spec In Lab Dominique Hinds MD BLOOD BANK LAB ORDER NICK Performing Organization Address [facility]/ZIP Co de Phone Number [facility] [place] [address] * Prepare RBC (05/31/2022 1:35 PM EDT) Dispensed? Yes [facility] Blood 05/31/2022 1:35 PM EDT 05/31/2022 1:30 PM EDT Dominique Hinds MD BLOOD BANK PRODUCT O RDERABLES Performing Organization Address City/[facility]/ZIP Co de Phone Number [facility] [place] [address] * Prepare RBC (05/31/2022 1:25 PM EDT) Dispensed? Yes [facility] Blood 05/31/2022 1:25 PM EDT 05/31/2022 1:23 PM EDT Dominique Hinds MD BLOOD BANK PRODUCT O RDERABLES Performing Organization Address [facility]/ZIP Co de Phone Number [facility] [place] [address] * (ABNORMAL) Differential, Automated (05/31/2022 12:44 PM EDT) Neutrophil % 62.0 % [facility] Neutrophil Absolute 4.71 1.70 - 6.10 x10(3)/mc L [facility] Lymph % 24.1 % [facility] Lymphocytes Abs 1.8 0.9 - 3.2 x10(3)/ L [facility] Monocyte % 10.8 % [facility] Monocyte Abs 0.8 0.3 - 0.9 x10(3)/[facility] Eos % 1.6 % [facility] Eosinophils Abs 0.1 0.0 - 0.4 x10(3)/[facility] Basophil % 0.7 % [facility] Baso Absolute 0.0 0.0 - 0.1 x10(3)/ L [facility] Immature Gran % 0.80 % [facility] Comment: Immature granulocytes(IG's)percentage and absolute count will include metamyelocytes, myelocytes, and promyelocytes. Blood smears from CBCs yielding IG's will be scanned manually for concordance. If this scan disagrees with the automated IG or if promyelocytes are noted, a manual differential will be performed. Immature Gran Absolute 0.06(H) 0.00 - 0.04 x10(3)/ L [facility] Blood 05/31/2022 12:4 4 PM EDT 05/31/2022 12:57 PM EDT Narrative Resulting Agency Comment Spec In Lab Brittany Ramirez MD HEMATOLOGY ORDERABLE S Performing Organization Address City/[facility]/ZIP Co de Phone Number [facility] [place] [address] * (ABNORMAL) Hemogram (05/31/2022 12:44 PM EDT) White Blood Cell 7.6 4.0 - 9.5 x10(3)/ L [facility] Red Blood Cell 2.11(L) 4.58 - 5.54 x10(6)/mc L [facility] Hemoglobin 6.9(L) 13.7 - 16.5 g/dL [facility] Hematocrit 20.8(L) 40.5 - 48.5 % [facility] Mean Cell Volume 98.6(H) 82.9 - 93.1 [facility] Mean Cell Hemoglobin 32.7(H) 27.5 - 32.1 pg [facility] Mean Cell Hemoglobin Concentration 33.2 32.0 - 35.7 g/dL [facility] Platelet 255 145 - 357 x10(3)/[facility] RDW Standard Deviation 47.7(H) 36.0 - 45.0 [facility] RDW coefficient of variation 13.4 11.4 - 13.8 % [facility] Mean Platelet Volume 10.7 7.6 - 12.9 [facility] NRBC% auto 0.0 % [facility] NRBC Absolute 0.000 0.000 - 0.000 x10(3)/[facility] Blood 05/31/2022 12:4 4 PM EDT 05/31/2022 12:57 PM EDT Narrative Resulting Agency Comment Spec In Lab Brittany Ramirez MD HEMATOLOGY ORDERABLE S [facility] [place] [address] * (ABNORMAL) BLOOD GAS 2 VENOUS (05/31/2022 11:24 AM EDT) pH, Venous 7.38 7.32 - 7.42 [facility] PCO2, Venous 40(L) 41 - 51 mmHg [facility] PO2, Venous 18(L) 25 - 40 mmHg [facility] Bicarbonate, Venous 23.3 mmol/L [facility] Base Excess, Venous -1.8 mmol/L [facility] Hgb Blood Gas 7.0(L) 13.7 - 16.5 g/dL [facility] Oxyhemoglobin, Venous 24.3 % [facility] Carboxyhemoglob in, Venous 1.4 % [facility] Comment: Nonsmokers: 0.5-1.5% COHB Smokers: Variable, but usually less than 10% Toxic: 20-30% COHB Lethal: Greater than 60% COHB Methemoglobin, Venous 1.7(H) <=1.5 % [facility] Na Whole Blood 137 135 - 145 mmol/L [facility] K Whole Blood 3.9 3.5 - 5.0 mmol/L [place] Whole Blood 107 98 - 107 mmol/L [facility] Gluc Whole Bld 204(H) 65 - 199 mg/dL [facility] Comment:Diabetes: >=200 mg/d L plus symptoms Lactate WB 1.4 0.5 - 2.2 mmol/L [facility] Blood Gas Source Venous [facility] Blood 05/31/2022 11:2 4 AM EDT 05/31/2022 11:24 AM EDT Dominique Hinds MD POINT OF CARE TEST O RDERABLES [facility] [place] [address] * TSH [place] (05/31/2022 11:20 AM EDT) Thyroid Stimulating Hormone 1.67 0.27 - 4.20 mcIU/mL [facility] Comment: Reference Interval (mcIU/mL): Females: ??First Trimester: 0.23-3.88 ??Second Trimester: 0.22-3.90 ??Third Trimester: 0.44-4.66 Blood 05/31/2022 11:2 0 AM EDT 05/31/2022 11:28 AM EDT Narrative Resulting Agency Comment Spec In Lab Dominique Hinds MD CHEMISTRY ORDERABLES [facility] [place] [address] * XR Chest PA & Lateral (Generic) [...] have questions please contact the health healthcare translator that requested your imaging first. ? Electronically signed by: Alan Brink MD, [facility] ([phone]), at 05/31/2022 11:33 AM Narrative 05/31/2022 11:33 [...] who have questions please contactthe health healthcare translator that requested your imaging first. Electronically signed by: Alan Brink MD, [facility]([phone]), at 05/31/2022 11:33 AM Dominique Hinds MD IMG DX ORDERABLES * Lipase (05/31/2022 10:50 AM EDT) Lipase 41 0 - 60 unit/L [facility] Blood Venous Draw / Unknown 05/31/2022 10:50 AM EDT 05/31/2022 11:11 AM EDT Narrative Resulting Agency Comment Spec In Lab Zain Champion MD CHEMISTRY ORD ERABLES [facility] [place] [address] * (ABNORMAL) Hepatic Function Panel (05/31/2022 10:50 AM EDT) Protein, Total 6.4 6.1 - 8.0 g/dL [facility] Albumin 4.1 3.2 - 5.2 g/dL [facility] Aspartate Aminotransferase 24 0 - 39 unit/L [facility] Alanine Aminotransferase 44 0 - 55 unit/L [facility] Alkaline Phosphatase 63 40 - 130 unit/L [facility] Bilirubin, Total <0.2(L) 0.2 - 1.3 mg/dL [facility] Bilirubin, Direct 0.1 0.0 - 0.3 mg/dL [facility] Blood Venous Draw / Unknown 05/31/2022 10:50 AM EDT 05/31/2022 11:11 AM EDT Narrative Resulting Agency Comment Spec In Lab Zain Champion MD CHEMISTRY ORD ERABLES Performing Organization Address City/[facility]/ZIP Co de Phone Number [facility] [place] [address] * Blue Tube HOLD (05/31/2022 10:50 AM EDT) Blue Hold Sample in lab. [facility] Blood Venous Draw / Unknown 05/31/2022 10:50 AM EDT 05/31/2022 11:05 AM EDT Brittany Ramirez MD HEMATOLOGY ORDERABLE S [facility] [place] [address] * (ABNORMAL) Differential, Automated (05/31/2022 10:50 AM EDT) Pathologist [facility] Neutrophil % 66.9 % [facility] Neutrophil Absolute 5.58 1.70 - 6.10 x10(3)/mc L [facility] Lymph % 22.2 % [facility] Lymphocytes Abs 1.8 0.9 - 3.2 x10(3)/mc L [facility] Monocyte % 7.8 % [facility] Monocyte Abs 0.6 0.3 - 0.9 x10(3)/mc L [facility] Eos % 1.2 % [facility] Eosinophils Abs 0.1 0.0 - 0.4 x10(3)/ L [facility] Basophil % 0.7 % [facility] Baso Absolute 0.1 0.0 - 0.1 x10(3)/mc L [facility] Immature Gran % 1.20 % [facility] Comment: Immature granulocytes(IG's)percentage and absolute count will include metamyelocytes, myelocytes, and promyelocytes. Blood smears from CBCs yielding IG's will be scanned manually for concordance. If this scan disagrees with the automated IG or if promyelocytes are noted, a manual differential will be performed. Immature Gran Absolute 0.10(H) 0.00 - 0.04 x10(3)/mc L [facility] Blood 05/31/2022 10:5 0 AM EDT 05/31/2022 11:03 AM EDT Narrative Resulting Agency Comment Spec In Lab Brittany Ramirez MD HEMATOLOGY ORDERABLE S [facility] [place] [address] * (ABNORMAL) Hemogram (05/31/2022 10:50 AM EDT) White Blood Cell 8.3 4.0 - 9.5 x10(3)/ L [facility] Red Blood Cell 2.26(L) 4.58 - 5.54 x10(6)/mc L [facility] Hemoglobin 7.4(L) 13.7 - 16.5 g/dL [facility] Hematocrit 22.3(L) 40.5 - 48.5 % [facility] Mean Cell Volume 98.7(H) 82.9 - 93.1 fL [facility] Mean Cell Hemoglobin 32.7(H) 27.5 - 32.1 pg [facility] Mean Cell Hemoglobin Concentration 33.2 32.0 - 35.7 g/dL [facility] Platelet 283 145 - 357 x10(3)/[facility] RDW Standard Deviation 47.0(H) 36.0 - 45.0 [facility] RDW coefficient of variation 13.4 11.4 - 13.8 % [facility] Mean Platelet Volume 10.8 7.6 - 12.9 [facility] NRBC% auto 0.0 % [facility] NRBC Absolute 0.000 0.000 - 0.000 x10(3)/ L [facility] Blood 05/31/2022 10:5 0 AM EDT 05/31/2022 11:03 AM EDT Narrative Resulting Agency Comment Spec In Lab Brittany Ramirez MD HEMATOLOGY ORDERABLE S [facility] [place] [address] * Phosphorus (05/31/2022 10:50 AM EDT) Pathologist [facility] Phosphorus 3.2 2.5 - 4.5 mg/dL [facility] Blood 05/31/2022 10:5 0 AM EDT 05/31/2022 11:03 AM EDT Narrative Resulting Agency Comment Spec In Lab Dominique Hinds MD CHEMISTRY ORDERABLES [facility] [place] [address] * Magnesium (05/31/2022 10:50 AM EDT) Magnesium 0.93 0.69 - 1.07 mmol/L [facility] Blood 05/31/2022 10:5 0 AM EDT 05/31/2022 11:03 AM EDT Narrative Resulting Agency Comment Spec In Lab Dominique Hinds MD CHEMISTRY ORDERABLES Performing Organization Address City/[facility] Co de Phone Number [facility] [place] [address] * (ABNORMAL) pro-Brain Natriuretic Peptide (05/31/2022 10:50 AM EDT) Pathologist [facility] NT-proBNP 1,077(H) <=449 pg/mL [facility] Blood 05/31/2022 10:5 0 AM EDT 05/31/2022 11:03 AM EDT Narrative Resulting Agency Comment Spec In Lab Dominique Hinds MD CHEMISTRY ORDERABLES Performing Organization Address City/[facility]/ZIP Co de Phone Number [facility] [place] [place] [address] * Troponin (05/31/2022 10:50 AM EDT) Troponin-T <0.01 0.00 - 0.00 ng/mL [facility] Comment: The 99th percentile for Troponin T is less than 0.01 ng/mL, any detectable cTnT concentration using this assay should be considered elevated. According to the third universal definition of myocardial infarction the following criteria with a clinical presentation consistent with acute myocardial ischemia meets the diagnosis for a myocardial infarction (IN). Detection of a rise and/or fall of cTnT, with at least one value greater than the 99th percentile (> or = 0.01) and with at least one of the following ?? Symptoms of ischemia ?? New or presumed new significant IK-jvzuhpr-L wave (ST-T) changes or new left bundle [...] additional sample may be indicated. Reference: Third [place] Definition of Myocardial Infarction. Journal of the [place] [employer] 2012;60:1581-98 Blood 05/31/2022 10:5 0 AM EDT 05/31/2022 11:03 AM EDT Narrative Resulting Agency Comment Spec In Lab Dominique Hinds MD CHEMISTRY ORDERABLES [facility] [place] [address] * (ABNORMAL) Basic Metabolic Panel (non-fasting) (05/31/2022 10:50 AM EDT) Glucose 223(H) 65 - 199 mg/dL [facility] Comment:Diabetes: >=200 mg/d L plus symptoms Blood Urea Nitrogen 39(H) 10 - 20 mg/dL [facility] Creatinine 0.91 0.80 - 1.50 mg/dL [facility] Sodium 140 135 - 145 mmol/L [facility] Potassium 4.1 3.5 - 5.0 mmol/L [facility] Comment: Please note: ??Patients with WBC >100,000 may have falsely elevated Potassium levels. ??For accurate Potassium quantification in these patients send serum separator tube (gold top) for subsequent determinations. ??Contact the Clinical Chemistry Laboratory if there are any questions. Chloride 107 98 - 107 mmol/L [facility] Carbon Dioxide 23 22 - 31 mmol/L [facility] Anion Gap 10 5 - 15 mmol/L [facility] Calcium 9.1 8.5 - 10.5 mg/dL [facility] Est Glomerular Filtration Rate 86 >=60 mL/min/1. 73 m?? [facility] [...] In Lab Dominique Hinds MD CHEMISTRY ORDERABLES [facility] [place] [id number] * EKG 12 Lead (05/31/2022 10:11 AM EDT) Ventricular rate 106 BPM MUSE SYSTEM QRS Duration 122 ms MUSE SYSTEM Q-T Interval 368 ms MUSE SYSTEM QTC Calculated (Bezet) 488 ms MUSE SYSTEM Calculated R [place] -43 degrees MUSE SYSTEM Calculated T [place] 109 degrees MUSE SYSTEM INTERPRETATION Atrial fibrillation [...] interpretation Confirmed by fellow MD Mike, [place] ([id number]) on 06/02/2022 8:36:21 PM Confirmed by MD KENDRICK, ABBY ([id number]) on 06/03/2022 5:04:32 PM MUSE SYSTEM 05/31/2022 10:1 1 AM EDT 06/03/2022 5:04 PM EDT Dominique Hinds MD ECG ORDERABLES [facility] SYSTEM documented in this encounter Visit Diagnoses [...] 20 mg, Oral, DAILY, First dose on [place] 06/02/22 at 1115, Until Discontinued, Routine, Restricted [...] Routine documented in this encounter Care Teams Emissions Repair Technician Relationship Specialty Start Date End Date Lippmann, Abby, MD [address] [place] [address] [place] [phone] PCP - General 10/02/10 documented as of this encounter
--- OUTSIDE RECORDS SUMMARY | 2024-09-30 12:10 | XMS_ITS | Encounter Summary ---
Author Organization On [facility] Address [facility] [place] [address] Care Team Providers Care Mental Health Aide Name Role Phone Bobby Das MD Primary Care Provider [phone] Encounter Details Date Type Department Care Team (Late st Contact Info) Description 05/31/2022 9:30 AM EDT Office Visit [place] [address] Jing Ghosh, HR OPERATIONS ADVISOR [facility] [place] [address] Dizzy; Atrial fibrillation, unspecified type; SOB (shortness [...] starting at 630 this morning he presented [facility] where he was [...] service with [facility] and emergently went [facility] for L WATER RESOURCE CONSULTANT transverse arteriotomy and primary repair, thromboembolectomy of L SFA/PFA/WATER RESOURCE CONSULTANT, reperfusion venous drainage for 250 cc, [...] ND, no palpable pulsatile masses Extremity - [place], warm, no ulceration, brisk capillary refill, left [...] breath documented in this encounter Care Teams Mental Health Aide Relationship Specialty Start Date End Date Bobby Das MD [address] [place] [address] [place] [phone] PCP - General 10/02/10 documented as of this encounter
--- OUTSIDE RECORDS SUMMARY | 2024-09-30 12:10 | XMS_ITS | Encounter Summary ---
Author Organization [facility] [address] Care Team Providers Care Meter Tester Name Role Phone Bobby Das MD Primary Care Provider [phone] Reason for Referral * Diagnostic Test (Routine) - Closed Specialty Diagnoses / Procedures Referred By Contac t Referred To Contact Cardiology Diagnoses Paroxysmal atrial fibrillation Procedures [place] 48 Hrs-15 Days Nasrin Parra PA [facility] [place] [address] [facility] [place] [address] Referral ID Status Reason Start Date Expiration Date V isits Requested Visits Authorized [id number] Closed Specialty Service Requested 05/21/2022 10/21/2022 1 1 Reason for Visit * Auth/Cert Specialty Diagnoses / Procedures Referred By Contac t Referred To Contact Diagnoses Limb ischemia LLE thrombus Fito Summers MD [facility] [place] [address] [facility] Referral ID Status Reason Start Date Expiration Date Visits Re quested Visits Authorized [id number] 1 1 Encounter Details Date Type Department Care Team (Latest Contact Info) Description 05/21/2022 3:30 PM EDT - 05/21/2022 11:59 PM EDT Hospital Encounter Non-Invasive [place] [address] Paroxysmal atrial fibrillation Discharge Disposition: [...] End Date fluticasone propionate (FLONASE) 50 mcg/actuation [place], Suspension 1 spray by Each Nare route [...] fibrillation documented in this encounter Care Teams Meter Tester Relationship Specialty Start Date End Date Bobby Das MD [address] [place] [address] [place] [address] PCP - General 10/02/10 documented as of this encounter
--- OUTSIDE RECORDS SUMMARY | 2024-09-30 12:10 | XMS_ITS | Encounter Summary ---
Author Organization [facility] [place] [address] Care Team Providers Care Nuclear Reactor Operator Name Role Phone Bobby Das MD Primary Care Provider [phone] Encounter Details Date Type Department Care Team (Late st Contact Info) Description 05/24/2022 Telephone Cardiology at [address] [phone] Kourtney Jimenez, RN Social History Tobacco Use [...] cardiac stenting. Vascular surgery discharge 05/21/22,states Mr aZmora has been sleeping 95% of his day since coming home. Advised she should follow up with Vascular Surgery -contact # given. She agrees to contact their office today. documented in this encounter Plan of Treatment Not on file documented as of this encounter Visit Diagnoses Not on filedocumented in this encounter Care Teams Nuclear Reactor Operator Relationship Specialty Start Date End Date Bobby Das MD [address] [place] [address] [place] [phone] PCP - General 10/02/10 documented as of this encounter
--- OUTSIDE RECORDS SUMMARY | 2024-09-30 12:10 | XMS_ITS | Encounter Summary ---
Author Organization [facility] [place] [address] Care Team Providers Care Rn Admissions Name Role Phone Bobby Das MD Primary Care Provider [phone] Reason for Referral * Consultation (Routine) - Closed Specialty Diagnoses / Procedures Referred By Contac t Referred To Contact Diagnoses Non-ST elevation myocardial infarction (NSTEMI) Limb ischemia Nasrin Parra PA [facility] [place] [address] [facility] [place] [address] Referral ID Status Reason Start Date Expiration Date V isits Requested Visits Authorized [id number] Closed Consult, Test & Treat 05/21/2022 05/21/2023 1 1 * Diagnostic Test (Routine) - Closed Specialty Diagnoses / Procedures Referred By Contac t Referred To Contact Cardiology Diagnoses Paroxysmal atrial fibrillation Procedures Ziopatch 48 Hrs-15 Days Nasrin Parra PA [facility] [place] [address] [facility] [place] [address] Referral ID Status Reason Start Date Expiration Date V isits Requested Visits Authorized [id number] Closed Specialty Service Requested 05/21/2022 10/21/2022 1 1 * Consultation (Routine) - Closed Specialty Diagnoses / Procedures Referred By Colby quezada Referred To Contact Cardiology Diagnoses HFrEF (heart failure with reduced ejection fraction) Paroxysmal atrial fibrillation Post-hospital follow-up, s/p PCI with stenting, heart failure Nasrin Parra PA [facility] [place] [address] [facility] Cardiology [address] [place] [phone] Referral ID Status Reason Start Date Expiration Date V isits Requested Visits Authorized [id number] Closed Consult, Test & Treat 05/21/2022 05/21/2023 1 1 * Diagnostic Test (Routine) - Closed Specialty Diagnoses / Procedures Referred By Colby quezada Referred To Contact Diagnoses Limb ischemia Procedures JOSSELYN, legs, multiple levels Nasrin Parra PA [facility] [place] [address] [facility] [place] [address] [address] Referral ID Status Reason Start Date Expiration Date V isits Requested Visits Authorized [id number] Closed Specialty Service Requested 05/21/2022 05/21/2023 1 1 * Home Health Care (Routine) - Closed Specialty Diagnoses / Procedures Referred By Colby quezada Referred To Contact Diagnoses Limb ischemia Fito Summers MD [facility] [place] [address] [facility] & [address] [place] [address] Referral ID Status Reason Start Date Expiration Date V isits Requested Visits Authorized [id number] Closed Consult, Test & Treat 05/21/2022 11/17/2022 999 999 Reason for Visit * Reason Comments Left Leg Pain * Auth/Cert Specialty Diagnoses / Procedures Referred By Contac t Referred To Contact Diagnoses Limb ischemia LLE thrombus Fito Summers MD [facility] [place] [address] [facility] Referral ID Status Reason Start Date Expiration Date Visits Re quested Visits Authorized [id number] 1 1 Encounter Details Date Type Department Care Team (Late st Contact Info) Description 05/15/2022 10:15 AM EDT - 05/21/2022 3:15 PM EDT Hospital Encounter Intermediate [place] [address] Fito Summers MD [facility] [place] [address] Wellington Jean MD [facility] [place] [address] Atrial fibrillation, unspecified type; Non-ST elevation myocardial [...] service with ALI and emergently went to [facility] for L SENIOR LOSS CONTROL SPECIALIST transverse arteriotomy and primary repair, thromboembolectomy of L SFA/PFA/SENIOR LOSS CONTROL SPECIALIST, reperfusion venous drainage for 250 cc, [...] Discharge Condition: Good Discharge to: Home with [facility] Agency [address] [address] Future Appointments and Orders Future Appointments and Orders Future Appointments Provider Department Dept Phone 05/23/2022 10:30 AM Loretta Cohen MD Dermatology at [facility] Arrive at: Educational Fundraising Director [address] [place] [address] 06/07/2022 1:30 PM Gail Rae APRN Vascular Surgery at [facility] Arrive at: Educational Fundraising Director Area 06/13/2022 7:30 AM Edson Lagos [place] Vascular Lab at [facility] Arrive at: Educational Fundraising Director Area 3V [phone] 06/13/2022 8:00 AM Fito Summers MD Vascular Surgery at [facility] Arrive at: Educational Fundraising Director Area 3V [phone] 06/13/2022 10:00 AM Alan Reid MD Cardiology at [facility] Arrive at: Educational Fundraising Director Area [phone] Future Orders Complete By Expires Ziopatch 48 Hrs-15 Days [[id number] CPT(R)] 05/21/2022 11/20/2022 Process Instructions: Scheduling Instructions: Comments: Questions: Does the patient have a pacemaker? If yes provide HI/LO settings: Apply for 7 or 14 days?: 7 Where will study be performed?: [facility] JOSSELYN, legs, multiple levels [VAS8 Custom] 06/21/2022 (Approximate) 12/21/2022 Process Instructions: There is no in-house vascular phlebotomist lab assistant available on weeknights (5pm-8am), weekends, or holidays. IF THIS IS A REQUEST FOR AN EMERGENT STUDY DURING THOSE HOURS, please have the senior provider responsible for the patient page the Vascular Surgery Fellow/Senior Resident electrical installation supervisor to discuss options. Scheduling Instructions: Questions: Indication for study/signs & symptoms: ALI s/p L fem cutdown with thromboembolectomy Question to be answered: Perfusion to feet? Please check toe pressure Preferred location?: [facility]ics Referral to Cardiology [REF12 Custom] As [...] Koko Bah for admission to Home Health. [address] [place] [phone] (home) Date of : 1940 Inpatient DOCUMENTATION FOR VNA SERVICES (INCLUDING THOSE PATIENTS WITH MEDICARE COVERAGE REQUIRING HOME VNA SERVICES AND/OR HOSPICE SERVICES) PATIENT'S LOCATION: Koko Bah [address] [facility] [address] (home) Cell: No relevant phone numbers on file. Terrapin Fisher's Name: Koko In discussion with the attending physician, it is certified that this patient is under their care and that they, or a Nurse Practitioner,Clinical Nurse specialist or Physician Cherry Dipper who is working directly with them, had [...] [facility] [address] [address] Start of care: Within 24 to 48 [...] from this patient's PCP: Bobby Das MD [address] [place] [address] / [place] [address] All VNA agencies which cover the [...] All of this went very well. Dr. Summres will want you to be seen in [...] For any problems or questions please call [phone] For issues on weeknights after 5pm and weekends please call [phone] and ask for the Vascular Fellow electrical installation supervisor. JOSEE Santiago Vascular Surgery 05/21/2022 documented [...] For any problems or questions please call [phone] For issues on weeknights after 5pm and weekends please call [phone] and ask for the Vascular Fellow electrical installation supervisor. documented in this encounter Medications at Time of Discharge Medication Sig Dispensed Refills Start Date End Date fluticasone propionate (FLONASE) 50 mcg/actuation [place], Suspension 1 spray by Each Nare route [...] status, full code. JOSEE Santiago 05/21/2022 Pager: [phone] * Brannon Isaacs - 05/21/2022 10:35 AM [...] plan as stated. Time IN / OUT: 6440-0939 Total Minutes, Physical Therapy: 25 Billing Code: 2 BOSTON Isaacs DPT Pager: [phone] Physical Therapy Inpatient Rehabilitation Department * Wellington [...] 04/17/2021 in Pain and Spine Center at [facility] Weight 79.8 kg (175 lb 14.8 oz) [...] and plan of care per Dr. Mcnamara (supervisor nuclear medicine). 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 [...] ED to Hosp-Admission (Current) from 05/15/[address] [place] [address] Office Visit from 04/17/2021 in Pain and Spine Center at [facility] Weight 79.8 kg (175 lb 14.8 oz) [...] and plan of care per Dr. Mcnamara (supervisor nuclear medicine). Please refer to her note above for [...] a mitral repair in [address] (not at [facility])with no CAD at that time. Currently, an [...] AF and the first documented HR at [facility] was 125 bpm (presented to an an [...] management following Dottienikhil Hill APRN 05/20/2022 Pager: [phone] * Laney Atkins RN - 05/20/2022 1:14 [...] 05/20/2022 1:09 AM EDT Pt. Transferred to [facility]. RN accompanied patient to floor and handed off to [facility] RN * Dottie Hill APRN - 05/19/2022 10:02 AM EDT Vascular Surgery Progress Note Koko Bah is a 81 y.o. male with w new onset Afib who presents in transfer from [facility] with acute limb ischemia of the LLE. ?? The patient had sudden pain starting at 630 05/15/22, he presented [facility] where he was placed on heparin. [...] management following Dottie Hill APRN 05/19/2022 Pager: [phone] * Emily Sauceda RN - 05/19/2022 6:28 AM EDT OUTCOME EVALUATION NOTE: OUTCOME SUMMARY: Patient AOx4, VSS on RA. Afib on tele. HR controlled w/ PRN metop, given x2. Denies CP, SOB, n/v. See flowsheets for NVC. Dressings to LLE CDI, prevena [place] to groin intact. Voiding to urinal. LBM GEOINT ANALYST,patient stating he will maybe try the laxative [...] adequately without difficulty to bedside urinal. LBM GEOINT ANALYST.Up to chair this AM with nursing staff. Worked with PT, tolerated well. Diet changed to regular at 1800. Plan is for cardiac cath on Friday. PLAN MOVING FORWARD: Bleeding precautions Pain management neurovascular checks PT/OT analyst microbiology lab INDIVIDUALIZED FALL PREVENTION INTERVENTIONS: Patient-specific fall risk [...] mL Intravenous BID ??? PHENobarbitaL 0.12 mg/kg/dose (Teachey) Oral BID ??? thiamine 100 mg Oral [...] management following Dottie Hill APRN 05/18/2022 Pager: [phone] * Brannon Isaacs - 05/18/2022 10:00 AM [...] at [facility] MAIN OR Social History: Pt [...] outlinedin this evaluation. Time IN / OUT: 3494-2284 Total Minutes, Physical Therapy: 30 Billing Code: Basilio Isaacs, PT Pager: [phone] Physical Therapy Inpatient Rehabilitation Department * Emily Sauceda RN - 05/18/2022 4:34 AM EDT OUTCOME EVALUATION NOTE: OUTCOME SUMMARY: Patient AOx4, VSS on 2LNC. Afib on tele. HR above 120, MD aware, PRN IV metop given x1, HR returnedto 90's-low 100's. Denies CP, SOB, n/v. See flowsheets for NVC. Dressings to LLE CDI, prevena [place] togroin intact. Voiding to urinal. LBM GEOINT ANALYST. Heparin gtt therapeutic. Pain controlled. Patient [...] adequately without difficulty to bedside urinal. LBM GEOINT ANALYST. Patient not OOB this shift. Currently NPO awaiting procedure in medical lab scientist. PLAN MOVING FORWARD: Bleeding precautions Pain management neurovascular checks PT/OT NPO for medical lab scientist INDIVIDUALIZED FALL PREVENTION INTERVENTIONS: Patient-specific [...] 05/17/2022 2:40 PM EDT Physical Therapy 05/17/22 2820 Evaluation & Treatment Document Type contact Total Minutes, Physical Therapy 10 Comment, Session Not Performed Orders recieved on Koko Bah who is a 81 y.o male with historyof atrial fibrillation not on anticoagulation, and GI bleeding who presented to the Emergency Department as a transfer from [facility] with left lower extremity limb ischemia. He went to [facility] and was started on heparin [...] he will will be going to the medical lab scientist for evaluation. Will defer PT eval at present but will see as ordered post cardiac catheritizaton. Social Hx:Pt lives with his Ursula in [place], [place] in a 2 level home in [...] WBAT LLE LISBET MORELOS, PT Pager # [phone] In-Pt Rehab Medicine * Dottie Hill, EXPANSION JOINT BUILDER - 05/17/2022 7:42 AM EDT Vascular Surgery [...] mL Intravenous BID ??? PHENobarbitaL 0.24 mg/kg/dose (Teachey) Oral BID Followed by ??? [START ON 05/18/2022] PHENobarbitaL 0.12 mg/kg/dose (Teachey) Oral BID ??? thiamine 100 mg Oral [...] management following Dottie Hill APRN 05/17/2022 Pager: [phone] * Sary Dos Santos RN - 05/17/2022 [...] mL Intravenous BID ??? PHENobarbitaL 0.48 mg/kg/dose (Teachey) Oral BID Followed by ??? [START ON 05/17/2022] PHENobarbitaL 0.24 mg/kg/dose (Teachey) Oral BID Followed by ??? [START ON 05/18/2022] PHENobarbitaL 0.12 mg/kg/dose (Teachey) Oral BID ??? thiamine 100 mg Oral [...] management following Edward Rodríguez MD 05/16/2022 Pager: [phone] * Sary Dos Santos RN - 05/16/2022 [...] 2129 Hand off to DION Ramirez 3 fallon documented in this encounter H&P Notes * [...] MD [facility] INTERVENTIONL RAD Social Hx: Social [...] Refill ??? fluticasone propionate (FLONASE) 50 mcg/actuation [place]if[place], Suspension as needed. ??? fluorouraciL (EFUDEX) 5 [...] and consented. Tim Chicas MD 05/15/2022 Pager: [phone] documented in this encounter ED Notes * Lc Harris PA - 05/15/2022 1:20 PM EDT ED Provider Note HPI: Koko Bah is a 81 y.o. male with history of atrial fibrillation not on anticoagulation, andGI bleeding who presents to the Emergency Department as a transfer from [facility] with left lower extremity limb ischemia. Patient says that the symptoms started roughly 630 this morning when he developed severe pain in his left lower extremity. He went to [facility] and was started on heparin [...] lower extremity earlier today and went to [facility] where it was determined that he had ischemia of the left lower extremity. Vascular surgery [facility] was contacted and he was transferred [...] orders before pt. Arrival. Pt. Arrived at [facility] by EMS at 1150, vascular team at [...] at [facility] for future reference. * Care Management Discharge [...] information for follow-up Home Health & Hospice, [address] [facility] [address] Transportation: family or friend will provide Functional [...] Type: *No Product type* / Secondary Insurance: [facility] Prescription Coverage: Yes This plan was formulated with input from patient and team. All are in agreement with plan. IP RS has communicated with Oli - for initial BRENDAN. Shawn (Paulo López RN RN/CM - Cellphone: [phone] Pager: [phone] Covering Service RN/CM * Plan of Care [...] Type: *No Product type* / Secondary Insurance: [facility] Last Physical Therapy Recommendation: home with home health, home with supervision with None Last Occupational Therapy Recommendation: with Plan for discharge is: Home w/ Services Outpatient Agency/Support Group Needs: None Home Health Services: Registered Nurse, Physical Therapy, Occupational Therapy Agency Referrals: I have met with the patient to: ?? discuss discharge planning needs. ?? provide the [facility], Office of Care Management letter from the Employee Relations Director pertaining to rehabreferrals. ?? provide a letter describing our affiliations within the [facility] and educate about their right to choose where referrals are sent. ?? provide a list of Home Health Agencies / Durable Medical Equipment vendors which serve their preferred geographic area. ?? provided patient with [facility] Star Quality Rating handout. They have requested referrals to: [facility]. [address] [place] [id number] Note routed to a Assembler Watch Train who will communicate referrals to facilities and provide any required information. Transportation: family or friend will provide Barriers to discharge: None Plan going forward: Patient is going for a cardiac cath today and plan will come from there. Patient was recently seen by PT and they recommend VNA at time of discharge. [facility] was routed and pended at this time. Care Management will continue to follow and assist with discharge planning and coordination of care as indicated. Anticipated Date of Discharge: 05/21/2022 Nataly RICHMOND RN CM Phone: [phone] Pager: [phone] * Plan of Care - Laney Atkins [...] [place] [address] [place] [address] INPATIENT CARDIOLOGY CONSULT NOTE Date of Consultation: 05/17/2022 Admit Date: 05/15/2022 Hospital Day 2 days Reason for Consult: New afib Active Problems: Active Hospital Problems Diagnosis Limb ischemia Resolved Hospital Problems No resolved problems to display. HPI: Koko Bah is a 81 y.o. male with a PMHx significant for MVP (s/p MV repair 2000), tobacco use, HLD, who presented to [facility] from OSH on 05/15 with acute limb ischemia of LLE and was found to bein atrial fibrillation. Patient had sudden onset LLE pain on 05/15 and presented to [facility], where he was started on heparin and transferred to [facility] Upon arrival to [facility], patient was in atrial fib with RVR [...] MD [facility] INTERVENTIONL RAD IR VERTEBROPLASTY LUMBAR MULTIPLE LEVELS 07/20/2019 IR Vertebroplasty Lumbar Multiple Levels 07/20/2019 Bobby Marshall MD [facility] INTERVENTIONL RAD IR VERTEBROPLASTY THORACIC SINGLE LEVEL 10/25/2020 IR Vertebroplasty Thoracic Single Level 10/25/2020 Matt Chisholm MD [facility] INTERVENTIONL RAD PRO EMBLC/THRMBC FEMORAL POPLITEAL AORTO-ILIAC ARTERY Left 05/15/2022 EMBOLECTOMY OR THROMBECTOMY, FEMOROPOPLITEAL, AORTOILIAC ARTERY BY LEG INCISION (WRVU 19.48) performed by Fito Summers MD at [facility] MAIN OR Allergies Allergen Reactions Aspirin Other (See Comments) GI bleed Out-Patient Medications: Medications Prior to Admission Medication Sig Dispense Refill Last Dose fluorouraciL (EFUDEX) 5 % Cream daily. CRESTOR 40 mg Tablet Take 40 mg by mouth daily. fluticasone propionate (FLONASE) 50 mcg/actuation [place], Suspension as needed. ascorbic acid, vitamin C, [...] 5 mL Intravenous BID PHENobarbitaL 0.24 mg/kg/dose (Teachey) Oral BID Followed by [START ON 05/18/2022] PHENobarbitaL 0.12 mg/kg/dose (Teachey) Oral BID thiamine 100 mg Oral Daily folic acid 1,000 mcg Oral Daily multivitamin with minerals 1 tablet Oral Daily heparin (porcine) infusion 1,200 Units/hr (05/17/22 5039) Family History: No family history on file. [...] to Hosp-Admission (Current) from 05/15/2022 in [facility] Office Visit from 04/17/2021 in Pain and Spine Center at [facility] Weight 79.8 kg (175 lb 14.8 oz) [...] continue to follow Anne-Marie Larson MD Pager [phone] Clinic: [phone] 05/17/22 6:22 PM * Initial Assessments - [...] 180 days) Any patient receiving care at [facility] must abide by [place] law. The hierarchy [...] The agent with financial power of civil litigation attorney or a conservator appointed in [...] raised toilet seat Home Address confirmed as: [address] [place] [phone] Social & Family Supports: All names listed below confirmed with patient as Incorrect. Will notify oli to correct. Wifes address is same as and phone is [phone]. Extended Emergency Contact Information Primary Emergency Contact: Ursula Bah Address: [address] [place] [address] [facility] Relation: Spouse Current Care Provided [...] Type: *No Product type* / Secondary Insurance: [facility] Prescription Coverage: Yes Preferred Pharmacy: [id number] - [place], [place] - [address] [facility] [address] [facility] [address] [facility] - [place], [place] - [address] [facility] [address] [facility] [address] Status: Patient is a : unable to assess Primary Care Provider: Bobby Das MD [phone] Patient/Caregiver Goals of Treatment: to walk again Potential Needs for Transition of Care: none noted per 05/16 IDR Transportation: family will provide Transportation Anticipated: family or friend will provide Concerns to be Addressed: no discharge needs identified Assessment: Patient is admitted to vascular surg service for left lower extremity limb ischemia Plan: Per PT OT recommendations . Has used brandon Lovin' Spoonfuls in the past. A member of the Care Management team will continue to monitor progress, follow for continuity of care and assist with transition of care planning. Ifrah Bell RN BSN [employer] Fin[employer] SupervisorFourdrinier Tender of Care Management Pager [phone] * Brief Op Note - Erin Garza MD - 05/15/2022 5:04 PM EDT Brief Operative Note Patient Name: Koko Bah : [id number] MR#: [id number] Case Date: 05/15/2022 Surgeon: Surgeon(s) and Role: [...] Garza MD - 05/15/2022 2:[address] [facility] Operative Note Patient Name: Koko Bah : [id number] MR#: [id number] Case Date: 05/15/2022 Surgeon: Surgeon(s) and Role: [...] PM EDT Emblc/Thrmbc Femoral Popliteal Aorto-Iliac Artery (18768) 05/15/2022 1:20 PM EDT Acute Limb Ischemia [...] multiple levels (06/13/2022 7:13 AM EDT) Pathologist [facility] Text Report Department: Vascular Surgery Lab Patient: [id number] (KOKO BAH) CPT: 39178 Referring Physician: FITO SUMMERS ?? Phone: Indications: s/p L SENIOR LOSS CONTROL SPECIALIST endart. Diabetes mellitus: no Findings: Right [...] PM EDT) UF Heparin 0.42 IU/mL [facility] Comment: Heparin (anti-Xa) levels should [...] MD HEMATOLOGY ORDERABLE S Performing Organization Address City/[facility]/[place] [address] * Differential, Automated (05/21/2022 6:15 AM EDT) Neutrophil % 58.8 % [facility] Neutrophil Absolute 3.97 1.70 - 6.10 x10(3)/[facility] Lymph % 25.2 % [facility] Lymphocytes Abs 1.7 0.9 - 3.2 x10(3)/[facility] Monocyte % 12.9 % [facility] Monocyte Abs 0.9 0.3 - 0.9 x10(3)/[facility] Eos % 2.1 % [facility] Eosinophils Abs 0.1 0.0 - 0.4 x10(3)/[facility] Basophil % 0.4 % [facility] Baso Absolute 0.0 0.0 - 0.1 x10(3)/[facility] Immature Gran % 0.60 % [facility] Comment: Immature granulocytes(IG's)percentage and absolute count will include metamyelocytes, myelocytes, and promyelocytes. Blood smears from CBCs yielding IG's will be scanned manually for concordance. If this scan disagrees with the automated IG or if promyelocytes are noted, a manual differential will be performed. Immature Gran Absolute 0.04 0.00 - 0.04 x10(3)/[facility] Blood 05/21/2022 6:15 AM EDT 05/21/2022 6:38 AM EDT Narrative Resulting Agency Comment Spec In Lab Edward Rodríguez MD HEMATOLOGY ORDER NICK Performing Organization Address City/[facility]/ZIP Co de Phone Number [facility] [place] [address] * (ABNORMAL) Hemogram (05/21/2022 6:15 AM EDT) Pathologist [facility] White Blood Cell 6.8 4.0 - 9.5 x10(3)/ L [facility] Red Blood Cell 3.59(L) 4.58 - 5.54 x10(6)/[facility] Hemoglobin 11.8(L) 13.7 - 16.5 g/dL [facility] Hematocrit 34.5(L) 40.5 - 48.5 % [facility] Mean Cell Volume 96.1(H) 82.9 - 93.1 [facility] Mean Cell Hemoglobin 32.9(H) 27.5 - 32.1 pg [facility] Mean Cell Hemoglobin Concentration 34.2 32.0 - 35.7 g/dL [facility] Platelet 198 145 - 357 x10(3)/[facility] LABORATORY RDW Standard Deviation 44.9 36.0 - 45.0 [facility] LABORATORY RDW coefficient of variation 12.6 11.4 - 13.8 % [facility] Mean Platelet Volume 10.0 7.6 - 12.9 [facility] NRBC% auto 0.3 % [facility] NRBC Absolute 0.020(H) 0.000 - 0.000 x10(3)/[facility] LABORATORY Blood 05/21/2022 6:15 AM EDT 05/21/2022 6:38 AM EDT Narrative Resulting Agency Comment Spec In Lab Edward Rodríguez MD HEMATOLOGY ORDER NICK [facility] [place] [address] * EKG 12 Lead (05/20/2022 7:04 PM EDT) Ventricular rate 101 BPM MUSE SYSTEM QRS Duration 116 ms MUSE SYSTEM Q-T Interval 378 ms MUSE SYSTEM QTC Calculated (Bezet) 490 ms MUSE SYSTEM Calculated R [place] -53 degrees MUSE SYSTEM Calculated T [place] 101 degrees MUSE SYSTEM INTERPRETATION Atrial fibrillation [...] Modality Other Narrative 05/20/2022 7:09 PM EDT ?[facility] ? Cardiac Catheterization/Intervention Report ? Patient Name: Koko Bah. ? Procedure Date: 05/20/2022 ? A #: [id number] ? Primary Physician: Abundio Servin ? Case #: [id number] ? File Name: [id number] ? Catheterization Order Number: [id number] ? [facility] ? Final Report [place], [place] ? Patient Name: ? Koko Sullivan. Bah ? ID#: ?[id number] ? : ?1940 ? Procedure Date: ? [...] was designated as ASA Class IV. The [facility] clinical ?frailty scale is 3: Managing Well. [...] procedure was Urgent. The indication for ?the medical lab scientist visit is cardiomyopathy. Chest pain symptom assessment [...] ?3.5 guiding catheter and a 3.5 Fr [facility] [address] ??20 Mhz. ??Imaging ?was successful. ??Image [...] A premounted 2.75 x 30 mm [place]y [place] (AMPARO) was deployed ? with a maximum [...] may require ?modification of this regimen. Consult [facility] for ?questions. ?The 1 year [...] Procedure Note Abundio Servin MD - 07/12/2022 [facility] Cardiac Catheterization/Intervention Report Patient Name: Koko Bah Procedure Date: 05/20/2022 A #: [id number] Primary Physician: Abundio Servin Case #: File Name: [id number] Catheterization Order Number: [id number] [facility] FinalReport [place], [place] Patient Name: Koko Bah ID#:[id number] :1940 Procedure Date: May 20, 2022 Case #: Room: 1 Case Physician: Abundio Servin M.D. Start: 17:16 Admission:05/15/2022 Referring Physician: uJlee Diego Discharge:05/21/2022 Procedures: * Coronary Angiography * [...] diagnostic procedure was Urgent. The indicationfor the medical lab scientist visit is cardiomyopathy. Chest pain symptom assessmentwas: [...] 3.5 guiding catheter and a 3.[address] [facility] [address] 20 Mhz.Imaging was successful. Image quality [...] The lesion was predilated with a 2.00mm [id number] MM balloon with a maximum inflation pressure of 12atmospheres. A premounted 2.75 x 30 mm [place]ber [place] (AMPARO) wasdeployed with a maximum inflation pressure [...] situation mayrequire modification of this regimen. Consult [facility] Interventional Cardiologyfor questions. The 1 year bleeding [...] * POCT Glucose (05/20/2022 5:42 PM EDT) [facility] Glucose, POC 123 65 - 199 mg/dL [facility] Comment: Supplemental ranges: <140 mg/dL before meals <180 mg/dL all other times of the day Blood 05/20/2022 5:42 PM EDT 05/20/2022 5:42 PM EDT Fito Summers MD POINT OF CARE TEST O RDERABLES [facility] [place] [address] * (ABNORMAL) BMP w/fasting Glucose (05/20/2022 10:50 AM EDT) Glucose Fasting 152(H) 65 - 99 mg/dL [facility] Comment: ?Fasting* Glucose Interpretive [...] Position Statement from the [place] [employer]. ??Diabetes Care, Volume 33, Supplement 1, Nov 2009 Blood Urea Nitrogen 11 10 - 20 mg/dL [facility] Creatinine 0.63(L) 0.80 - 1.50 mg/dL [facility] [...] questions. Chloride 103 98 - 107 mmol/L [facility] Carbon Dioxide 24 22 - 31 mmol/L [facility] Anion Gap 10 5 - 15 mmol/L [facility] Calcium 8.7 8.5 - 10.5 mg/dL [facility] Est Glomerular Filtration Rate [...] Summers MD CHEMISTRY ORDERABLES Performing Organization Address [facility]/ZIP Co de Phone Number [facility] [place] [address] * Heparin (unfractionated) Level (05/20/2022 5:02 AM EDT) UF Heparin 0.57 IU/mL [facility] Comment: Heparin (anti-Xa) levels should [...] MD HEMATOLOGY ORDERABLE S Performing Organization Address City/[facility]/ZIP Co de Phone Number [facility] [place] [address] * (ABNORMAL) Differential, Automated (05/20/2022 5:02 AM EDT) Neutrophil % 58.1 % [facility] Neutrophil Absolute 4.52 1.70 - 6.10 x10(3)/[facility] LABOR[facility] Lymph % 24.1 % [facility] Lymphocytes Abs 1.9 0.9 - 3.2 x10(3)/[facility] Monocyte % 13.8 % [facility] Monocyte Abs 1.1(H) 0.3 - 0.9 x10(3)/[facility]OR[facility]ORY Eos % 2.6 % [facility] Eosinophils Abs 0.2 0.0 - 0.4 x10(3)/[facility]OR[facility] Basophil % 0.8 % [facility] Baso Absolute 0.1 0.0 - 0.1 x10(3)/[facility] Immature Gran % 0.60 % [facility] Comment: Immature granulocytes(IG's)percentage and absolute count will include metamyelocytes, myelocytes, and promyelocytes. Blood smears from CBCs yielding IG's will be scanned manually for concordance. If this scan disagrees with the automated IG or if promyelocytes are noted, a manual differential will be performed. Immature Gran Absolute 0.05(H) 0.00 - 0.04 x10(3)/[facility] Blood 05/20/2022 5:02 AM EDT 05/20/2022 5:19 AM EDT Narrative Resulting Agency Comment Spec In Lab Edward Rodríguez MD HEMATOLOGY ORDER NICK [facility] [place] [address] * (ABNORMAL) Hemogram (05/20/2022 5:02 AM EDT) Pathologist [facility] White Blood Cell 7.8 4.0 - 9.5 x10(3)/mc L [facility] Red Blood Cell 3.53(L) 4.58 - 5.54 x10(6)/mc L [facility] Hemoglobin 11.4(L) 13.7 - 16.5 g/dL [facility] Hematocrit 34.3(L) 40.5 - 48.5 % [facility] Mean Cell Volume 97.2(H) 82.9 - 93.1 fL [facility] Mean Cell Hemoglobin 32.3(H) 27.5 - 32.1 pg [facility] Mean Cell Hemoglobin Concentration 33.2 32.0 - 35.7 g/dL [facility] Platelet 181 145 - 357 x10(3)/[facility] LABORATORY RDW Standard Deviation 46.4(H) 36.0 - 45.0 fL [facility] RDW coefficient of variation 13.0 11.4 - 13.8 % [facility] Mean Platelet Volume 10.4 7.6 - 12.9 [facility] NRBC% auto 0.0 % [facility] NRBC Absolute 0.000 0.000 - 0.000 x10(3)/[facility] Blood 05/20/2022 5:02 AM EDT 05/20/2022 5:19 AM EDT Narrative Resulting Agency Comment Spec In Lab Edward Rodríguez MD HEMATOLOGY ORDER NICK [facility] [place] [address] * Heparin (unfractionated) Level (05/19/2022 3:26 AM EDT) UF Heparin 0.59 IU/mL [facility] Comment: Heparin (anti-Xa) levels should [...] MD HEMATOLOGY ORDERABLE S Performing Organization Address City/State/[facility] Co de Phone Number [facility] [place] [address] * (ABNORMAL) Differential, Automated (05/19/2022 3:26 AM EDT) Neutrophil % 62.1 % [facility] Neutrophil Absolute 4.59 1.70 - 6.10 x10(3)/mc L [facility] Lymph % 22.1 % [facility] Lymphocytes Abs 1.6 0.9 - 3.2 x10(3)/mc L [facility] Monocyte % 13.5 % [facility] Monocyte Abs 1.0(H) 0.3 - 0.9 x10(3)/mc L [facility] Eos % 1.3 % [facility] Eosinophils Abs 0.1 0.0 - 0.4 x10(3)/mc L [facility] Basophil % 0.5 % [facility] Baso Absolute 0.0 0.0 - 0.1 x10(3)/mc L [facility] Immature Gran % 0.50 % [facility] Comment: Immature granulocytes(IG's)percentage and absolute count will include metamyelocytes, myelocytes, and promyelocytes. Blood smears from CBCs yielding IG's will be scanned manually for concordance. If this scan disagrees with the automated IG or if promyelocytes are noted, a manual differential will be performed. Immature Gran Absolute 0.04 0.00 - 0.04 x10(3)/mc L [facility] Blood 05/19/2022 3:26 AM EDT 05/19/2022 3:59 AM EDT Narrative Resulting Agency Comment Spec In Lab Edward Rodríguez MD HEMATOLOGY ORDER NICK [facility] [place] [address] * (ABNORMAL) Hemogram (05/19/2022 3:26 AM EDT) White Blood Cell 7.4 4.0 - 9.5 x10(3)/mc L [facility] Red Blood Cell 3.74(L) 4.58 - 5.54 x10(6)/mc [facility] Hemoglobin 12.1(L) 13.7 - 16.5 g/dL [facility] Hematocrit 36.4(L) 40.5 - 48.5 % [facility] Mean Cell Volume 97.3(H) 82.9 - 93.1 [facility] Mean Cell Hemoglobin 32.4(H) 27.5 - 32.1 pg [facility] Mean Cell Hemoglobin Concentration 33.2 32.0 - 35.7 g/dL [facility] Platelet 168 145 - 357 x10(3)/mc L [facility] RDW Standard Deviation 46.9(H) 36.0 - 45.0 [facility] RDW coefficient of variation 13.0 11.4 - 13.8 % [facility] Mean Platelet Volume 10.5 7.6 - 12.9 [facility] NRBC% auto 0.0 % [facility] NRBC Absolute 0.000 0.000 - 0.000 x10(3)/mc L [facility] Blood 05/19/2022 3:26 AM EDT 05/19/2022 3:59 AM EDT Narrative Resulting Agency Comment Spec In Lab Edward Rodríguez MD HEMATOLOGY ORDER NICK Performing Organization Address City/[facility]/ZIP Co de Phone Number [facility] [place] [address] * TSH (05/18/2022 8:00 PM EDT) [facility] Thyroid Stimulating Hormone 2.27 0.27 - 4.20 mcIU/mL [facility] Comment: Reference Interval (mcIU/mL): Females: ??First Trimester: 0.23-3.88 ??Second Trimester: 0.22-3.90 ??Third Trimester: 0.44-4.66 Blood 05/18/2022 8:00 PM EDT 05/18/2022 8:06 PM EDT Narrative Resulting Agency Comment Spec In Lab Fito Summers MD CHEMISTRY ORDERABLES Performing Organization Address [facility]/ZIP Co de Phone Number [facility] [place] [address] * (ABNORMAL) Differential, Automated (05/18/2022 3:34 AM EDT) [facility] Neutrophil % 67.2 % [facility] Neutrophil Absolute 5.89 1.70 - 6.10 x10(3)/mc L [facility] Lymph % 17.1 % [facility] Lymphocytes Abs 1.5 0.9 - 3.2 x10(3)/mc L [facility] Monocyte % 13.6 % [facility] Monocyte Abs 1.2(H) 0.3 - 0.9 x10(3)/mc L [facility] Eos % 1.0 % [facility] Eosinophils Abs 0.1 0.0 - 0.4 x10(3)/mc L [facility] Basophil % 0.6 % [facility] Baso Absolute 0.0 0.0 - 0.1 x10(3)/[facility]OR[facility] Immature Gran % 0.50 % [facility] Comment: Immature granulocytes(IG's)percentage and absolute count will include metamyelocytes, myelocytes, and promyelocytes. Blood smears from CBCs yielding IG's will be scanned manually for concordance. If this scan disagrees with the automated IG or if promyelocytes are noted, a manual differential will be performed. Immature Gran Absolute 0.04 0.00 - 0.04 x10(3)/[facility] Blood 05/18/2022 3:34 AM EDT 05/18/2022 3:48 AM EDT Narrative Resulting Agency Comment Spec In Lab Edward Rodríguez MD HEMATOLOGY ORDER NICK Performing Organization Address City/State/[facility] Co de Phone Number [facility] [place] [address] * (ABNORMAL) Hemogram (05/18/2022 3:34 AM EDT) White Blood Cell 8.8 4.0 - 9.5 x10(3)/[facility] Red Blood Cell 3.45(L) 4.58 - 5.54 x10(6)/[facility] Hemoglobin 11.2(L) 13.7 - 16.5 g/dL [facility] Hematocrit 33.0(L) 40.5 - 48.5 % [facility] Mean Cell Volume 95.7(H) 82.9 - 93.1 fL [facility] Mean Cell Hemoglobin 32.5(H) 27.5 - 32.1 pg [facility] Mean Cell Hemoglobin Concentration 33.9 32.0 - 35.7 g/dL [facility] Platelet 130(L) 145 - 357 x10(3)/[facility]OR[facility]ORY RDW Standard Deviation 46.2(H) 36.0 - 45.0 fL [facility] RDW coefficient of variation 13.2 11.4 - 13.8 % [facility] Mean Platelet Volume 10.8 7.6 - 12.9 fL [facility] NRBC% auto 0.0 % [facility] NRBC Absolute 0.000 0.000 - 0.000 x10(3)/mc L [facility] Blood 05/18/2022 3:34 AM EDT 05/18/2022 3:48 AM EDT Narrative Resulting Agency Comment Spec In Lab Edward Rodríguez MD HEMATOLOGY ORDER NICK Performing Organization Address [facility]/ZIP Co de Phone Number [facility] [place] [address] * Heparin (unfractionated) Level (05/18/2022 3:34 AM EDT) UF Heparin 0.59 IU/mL [facility] Comment: Heparin (anti-Xa) levels should [...] MD HEMATOLOGY ORDERABLE S Performing Organization Address City/[facility]/ZIP Co de Phone Number [facility] [place] [address] * Magnesium (05/17/2022 3:33 AM EDT) Magnesium 0.76 0.69 - 1.07 mmol/L [facility] Blood Venous Draw / Unknown 05/17/2022 3:33 AM EDT 05/17/2022 4:05 AM EDT Narrative Resulting Agency Comment Spec In Lab Dottie Kurt Hill APRN CHEMISTRY ORDERABL ES [facility] [place] [address] * (ABNORMAL) Basic Metabolic Panel (non-fasting) (05/17/2022 3:33 AM EDT) Glucose 158 65 - 199 mg/dL [facility] Comment:Diabetes: >=200 mg/d L plus symptoms Blood Urea Nitrogen 12 10 - 20 mg/dL [facility] Creatinine 0.74(L) 0.80 - 1.50 mg/dL [facility] [...] questions. Chloride 102 98 - 107 mmol/L [facility] Carbon Dioxide 25 22 - 31 mmol/L [facility] Anion Gap 10 5 - 15 mmol/L [facility] Calcium 8.4(L) 8.5 - 10.5 mg/dL [facility] Est Glomerular Filtration Rate 92 >=60 mL/min/1. 73 m?? [facility] Comment: This [...] In Lab Fito Summers MD CHEMISTRY ORDERABLES [facility] [place] [address] * (ABNORMAL) Differential, Automated (05/17/2022 3:33 AM EDT) Neutrophil % 65.5 % [facility] Neutrophil Absolute 6.84(H) 1.70 - 6.10 x10(3)/mc L [facility] Lymph % 19.7 % [facility] Lymphocytes Abs 2.1 0.9 - 3.2 x10(3)/mc L [facility] Monocyte % 13.1 % [facility] Monocyte Abs 1.4(H) 0.3 - 0.9 x10(3)/mc L [facility] Eos % 0.6 % [facility] Eosinophils Abs 0.1 0.0 - 0.4 x10(3)/mc L [facility] Basophil % 0.6 % [facility] Baso Absolute 0.1 0.0 - 0.1 x10(3)/mc L [facility] Immature Gran % 0.50 % [facility] Comment: Immature granulocytes(IG's)percentage and absolute count will include metamyelocytes, myelocytes, and promyelocytes. Blood smears from CBCs yielding IG's will be scanned manually for concordance. If this scan disagrees with the automated IG or if promyelocytes are noted, a manual differential will be performed. Immature Gran Absolute 0.05(H) 0.00 - 0.04 x10(3)/ L [facility] Blood 05/17/2022 3:33 AM EDT 05/17/2022 3:53 AM EDT Narrative Resulting Agency Comment Spec In Lab Edward Rodríguez MD HEMATOLOGY ORDER NICK [facility] [place] [address] * (ABNORMAL) Hemogram (05/17/2022 3:33 AM EDT) White Blood Cell 10.4(H) 4.0 - 9.5 x10(3)/[facility] Red Blood Cell 3.72(L) 4.58 - 5.54 x10(6)/[facility] Hemoglobin 12.0(L) 13.7 - 16.5 g/dL [facility] Hematocrit 36.4(L) 40.5 - 48.5 % [facility] Mean Cell Volume 97.8(H) 82.9 - 93.1 fL [facility] Mean Cell Hemoglobin 32.3(H) 27.5 - 32.1 pg [facility] Mean Cell Hemoglobin Concentration 33.0 32.0 - 35.7 g/dL [facility] Platelet 149 145 - 357 x10(3)/[facility] RDW Standard Deviation 48.7(H) 36.0 - 45.0 [facility] RDW coefficient of variation 13.5 11.4 - 13.8 % [facility] Mean Platelet Volume 10.6 7.6 - 12.9 [facility] NRBC% auto 0.0 % [facility] NRBC Absolute 0.000 0.000 - 0.000 x10(3)/ L [facility] Blood 05/17/2022 3:33 AM EDT 05/17/2022 3:53 AM EDT Narrative Resulting Agency Comment Spec In Lab Edward Rodríguez MD HEMATOLOGY ORDER NICK Performing Organization Address City/[facility]/ZIP Co de Phone Number [facility] [place] [address] * (ABNORMAL) Urinalysis Microscopic Exam (05/16/2022 11:15 PM EDT) RBC, Urine 8(H) 0 - 3 /HPF [facility] WBC, Urine 2 0 - 3 /HPF [facility] Clean Catch Urine 05/16/2022 11:15 PM EDT 05/16/2022 11:30 PM EDT Narrative Resulting Agency Comment Spec In Lab Barbie Patiño MD URINE ORDERABLES Performing Organization Address [facility] Co de Phone Number [facility] [place] [address] * (ABNORMAL) Urinalysis with reflex Culture (05/16/2022 11:15 PM EDT) Glucose, Urine Dipstick Negative Negative mg/dL [facility] Protein, Urine Dipstick Negative Negative mg/dL [facility] Bilirubin, Urine Dipstick Negative Negative mg/dL [facility] Comment: Clinical correlation required for positive Urine Bilirubin results as false positive may occur with some drugs and drug related products. If a false positive is suspected a serum total bilirubin should be considered if clinically indicated. Urobilinogen, Urine Dipstick Normal Normal mg/dL [facility] pH, Urn (dipstick) 6.0 5.0 - 8.0 [facility] Blood, Urine Dipstick Small(A) Negative mg/dL [facility] Ketone, Urine Dipstick Trace(A) Negative mg/dL [facility] Nitrite, Urine Dipstick Negative Negative [facility] Leukocytes, Urine Dipstick Negative Negative [facility] Appearance, Urine Dipstick Clear Clear [facility] Specific [place] Urine Automated 1.021 1.005 - 1.030 [facility] Color, Urine Dipstick Yellow Yellow [facility] Reflex to Culture No [facility] Clean Catch Urine 05/16/2022 11:15 PM EDT 05/16/2022 11:30 PM EDT Narrative Resulting Agency Comment Spec In Lab Fito Summers MD URINE ORDERABLES Performing Organization Address [facility]/ZIP Co de Phone Number [facility] [place] [address] * Heparin (unfractionated) Level (05/16/2022 10:59 PM EDT) UF Heparin 0.65 IU/mL [facility] Comment: Specimen drawn more than [...] MD HEMATOLOGY ORDERABLE S Performing Organization Address City/[facility]/ZIP Co de Phone Number [facility] [place] [address] * XR Chest One View (05/16/2022 9:14 [...] have questions please contact the health care advocate that requested your imaging first. ? Electronically signed by: Tiffanie George MD, [facility] ([phone]), at 05/16/2022 9:27 PM Narrative 05/16/2022 9:27 [...] patients who have questions please contactthe health care advocate that requested your imaging first. Fito Summers MD IMG DX ORDERABLES * EKG 12 Lead (05/16/2022 8:57 PM EDT) Ventricular rate 117 BPM MUSE SYSTEM QRS Duration 112 ms MUSE SYSTEM Q-T Interval 346 ms MUSE SYSTEM QTC Calculated (Bezet) 482 ms MUSE SYSTEM Calculated R [place] -48 degrees MUSE SYSTEM Calculated T [place] 111 degrees MUSE SYSTEM INTERPRETATION Atrial fibrillation [...] PM EDT) UF Heparin 0.53 IU/mL [facility] Comment: Heparin (anti-Xa) levels should [...] [facility] [address] [place] [address] * ECHO COMPLETE W CONTRAST (05/16/2022 12:49 PM EDT) EF 28 HEARTLAB SYSTEM Anatomical Region Laterality Modality Cardiac Other 05/16/2022 11:2 2 AM EDT Narrative 05/16/2022 1:54 PM EDT [facility] ?[address] ? [place] [address] ?Voice: ?Fax: ? Echocardiogram Report Name: KOKO BAH Laurie ?Study Date: 05/16/2022 11:22 AM ? [facility] 1940 ? Height: 67.5 in ? Account: [id number] Age: 81 yrs ? Weight: 176 lb Gender: Male ?BSA: 1.9 m2 Ordering Physician: FITO SUMMERS Referring Physician: MAIK FLORIAN Performed By: Jolene Bernard RDCS Exam Location: [facility]. Interpretation Summary Left ventricle is mildly dilated. [...] and LV systolic dysfunction are new. Procedure Complete-[id number]. Image enhancement Optison was used for both [...] Procedure Note Gladys Jaime MD - 05/16/2022 [facility] [address] [place] [address] Voice: Fax: Echocardiogram Report Name: KOKO BAH Study Date: 1:22 AM Patient Location: [id number] : 1940 Height: 67.5 in Account: [id number] Age: 81 yrs Weight: 176 lb Gender: Male BSA: 1.9 m2 Ordering Physician: FITO SUMMERS Referring Physician: MAIK FLORIAN Performed By: Jolene Bernard LOLLY Exam Location: [facility]. Interpretation Summary Left ventricle is mildly dilated. [...] moderate and LV systolicdysfunction are new. Procedure Complete-[id number]. Image enhancement Optison was used for both [...] 3:01 AM EDT) Neutrophil % 78.8 % [facility] Neutrophil Absolute 9.11(H) 1.70 - 6.10 x10(3)/mc L [facility] Lymph % 9.4 % [facility] Lymphocytes Abs 1.1 0.9 - 3.2 x10(3)/mc L [facility] Monocyte % 10.9 % [facility] Monocyte Abs 1.3(H) 0.3 - 0.9 x10(3)/[facility] Eos % 0.0 % [facility] Eosinophils Abs 0.0 0.0 - 0.4 x10(3)/[facility] Basophil % 0.3 % [facility] Baso Absolute 0.0 0.0 - 0.1 x10(3)/[facility] Immature Gran % 0.60 % [facility] Comment: Immature granulocytes(IG's)percentage and absolute count will include metamyelocytes, myelocytes, and promyelocytes. Blood smears from CBCs yielding IG's will be scanned manually for concordance. If this scan disagrees with the automated IG or if promyelocytes are noted, a manual differential will be performed. Immature Gran Absolute 0.07(H) 0.00 - 0.04 x10(3)/[facility] Blood 05/16/2022 3:01 AM EDT 05/16/2022 3:36 AM EDT Narrative Resulting Agency Comment Spec In Lab Erin Garza MD HEMATOLOGY ORDERABLE S [facility] [place] [address] * (ABNORMAL) Hemogram (05/16/2022 3:01 AM EDT) White Blood Cell 11.6(H) 4.0 - 9.5 x10(3)/[facility] Red Blood Cell 3.62(L) 4.58 - 5.54 x10(6)/[facility] Hemoglobin 12.0(L) 13.7 - 16.5 g/dL [facility] Hematocrit 35.3(L) 40.5 - 48.5 % [facility] Mean Cell Volume 97.5(H) 82.9 - 93.1 fL [facility] Mean Cell Hemoglobin 33.1(H) 27.5 - 32.1 pg [facility] Mean Cell Hemoglobin Concentration 34.0 32.0 - 35.7 g/dL [facility] Platelet 151 145 - 357 x10(3)/mc L [facility] RDW Standard Deviation 47.6(H) 36.0 - 45.0 [facility] RDW coefficient of variation 13.3 11.4 - 13.8 % [facility] Mean Platelet Volume 10.5 7.6 - 12.9 [facility] NRBC% auto 0.0 % [facility] NRBC Absolute 0.000 0.000 - 0.000 x10(3)/mc L [facility] Blood 05/16/2022 3:01 AM EDT 05/16/2022 3:36 AM EDT Narrative Resulting Agency Comment Spec In Lab Erin Garza MD HEMATOLOGY ORDERABLE S [facility] [place] [address] * Phosphorus (05/16/2022 3:01 AM EDT) Phosphorus 3.7 2.5 - 4.5 mg/dL [facility] Blood 05/16/2022 3:01 AM EDT 05/16/2022 3:36 AM EDT Narrative Resulting Agency Comment Spec In Lab Fito Summers MD CHEMISTRY ORDERABLES [facility] [place] [address] * Magnesium (05/16/2022 3:01 AM EDT) Magnesium 0.77 0.69 - 1.07 mmol/L [facility] Blood 05/16/2022 3:01 AM EDT 05/16/2022 3:36 AM EDT Narrative Resulting Agency Comment Spec In Lab Fito Summers MD CHEMISTRY ORDERABLES [facility] [place] [address] * (ABNORMAL) Basic Metabolic Panel (non-fasting) (05/16/2022 3:01 AM EDT) Glucose 222(H) 65 - 199 mg/dL [facility] Comment:Diabetes: >=200 mg/d L plus symptoms Blood Urea Nitrogen 12 10 - 20 mg/dL [facility] Creatinine 0.66(L) 0.80 - 1.50 mg/dL [facility] [...] questions. Chloride 108(H) 98 - 107 mmol/L [facility] Carbon Dioxide 22 22 - 31 mmol/L [facility] Anion Gap 8 5 - 15 mmol/L [facility] Calcium 8.2(L) 8.5 - 10.5 mg/dL [facility] Est Glomerular Filtration Rate 95 >=60 mL/min/1. 73 m?? [facility] Comment: This [...] In Lab Fito Summers MD CHEMISTRY ORDERABLES [facility] [place] [address] * (ABNORMAL) BLOOD GAS 2 ARTERIAL (05/15/2022 3:33 PM EDT) pH, Arterial 7.33(L) 7.35 - 7.45 [facility] PCO2, Arterial 41 35 - 45 mmHg [facility] PO2, Arterial 131(H) 85 - 104 mmHg [facility] Bicarbonate, Arterial 21.1 20.0 - 26.0 mmol/L [facility] Base Excess, Arterial -4.8(L) -3.0 - 3.0 mmol/L [facility] Hgb Blood Gas 13.4(L) 13.7 - 16.5 g/dL [facility] Oxyhemoglobin, Arterial 96.9 94.0 - 97.0 % [facility] Carboxyhemoglob in, Arterial 1.4 % [facility] Comment: Nonsmokers: 0.5-1.5% COHB Smokers: Variable, but usually less than 10% Toxic: 20-30% COHB Lethal: Greater than 60% COHB Methemoglobin, Arterial 0.3 <=1.5 % [facility] [...] Whole Blood 113(H) 98 - 107 mmol/L [facility] Gluc Whole Bld 136 65 - 199 mg/dL [facility] Comment:Diabetes: >=200 mg/d L plus symptoms. Lactate WB 2.0 0.5 - 2.2 mmol/L [facility] Blood 05/15/2022 3:33 PM EDT 05/15/2022 3:[address] Jamel Torre MD POINT OF CARE TEST O RDERABLES [facility] [place] [address] * (ABNORMAL) BLOOD GAS 2 ARTERIAL (05/15/2022 2:06 PM EDT) pH, Arterial 7.39 7.35 - 7.45 [facility] PCO2, Arterial 35 35 - 45 mmHg [facility] PO2, Arterial 135(H) 85 - 104 mmHg [facility] Bicarbonate, Arterial 20.8 20.0 - 26.0 mmol/L [facility] Base Excess, Arterial -4.2(L) -3.0 - 3.0 mmol/L [facility] Hgb Blood Gas 14.5 13.7 - 16.5 g/dL [facility] Oxyhemoglobin, Arterial 97.2(H) 94.0 - 97.0 % [facility] Carboxyhemoglob in, Arterial 1.2 % [facility] Comment: Nonsmokers: 0.5-1.5% COHB Smokers: Variable, but usually less than 10% Toxic: 20-30% COHB Lethal: Greater than 60% COHB Methemoglobin, Arterial 0.3 <=1.5 % [facility] Na Whole Blood 140 135 - 145 mmol/L [facility] K Whole Blood 3.8 3.5 - 5.0 mmol/L [facility] Comment: Please note: Patients with WBC >100,000 may have falsely elevated Potassium levels. Contact the Clinical Chemistry Laboratory if there are any questions. ICa Whole Blood 1.12(L) 1.15 - 1.33 mmol/L [facility] Comment: Note: ??Total bilirubin higher than 20 mg/dL may lead to falsely low ionized calcium. CL Whole Blood 109(H) 98 - 107 mmol/L [facility] Gluc Whole Bld 152 65 - 199 mg/dL [facility] Comment:Diabetes: >=200 mg/d L plus symptoms. Lactate WB 1.5 0.5 - 2.2 mmol/L [facility] Blood 05/15/2022 2:06 PM EDT 05/15/2022 2:[address] Jamel Torre MD POINT OF CARE TEST O RDERABLES Performing Organization Address [facility]/ZIP Co de Phone Number [facility] [place] [address] * (ABNORMAL) Prothrombin Time (05/15/2022 12:30 PM EDT) Prothrombin Time 12.9(H) 9.4 - 12.5 sec [facility] International Normalization Ratio 1.1 [facility] Comment: An [...] DO HEMATOLOGY ORDERABLE S Performing Organization Address [facility]/ZIP Co de Phone Number [facility] [place] [address] * (ABNORMAL) APTT (05/15/2022 12:30 PM EDT) Pathologist [facility] Partial Thromboplastin Time 76(H) 25 - 37 sec [facility] [...] DO HEMATOLOGY ORDERABLE S Performing Organization Address City/[facility]/ZIP Co de Phone Number [facility] [place] [address] * Gold Tube HOLD (05/15/2022 12:20 PM EDT) [facility] Gold Hold Sample in lab. [facility] Blood No Charge / Unknown 05/15/2022 12:20 PM EDT 05/15/2022 12:20 PM EDT Lc TRIPP CHEMISTRY ORDERABLES Performing Organization Address City/[facility]/ZIP Co de Phone Number [facility] [place] [address] * Type and Screen Validity (05/15/2022 12:00 PM EDT) [facility] T&S only valid at [facility] Comment:This Type and Screen result is only valid at the [facility] Blood 05/15/2022 12:0 0 PM EDT 05/15/2022 12:17 PM EDT Narrative Resulting Agency Comment Spec In Lab Lc TRIPP BLOOD BANK LAB ORDER NICK Performing Organization Address City/[facility]/ZIP Co de Phone Number [facility] [place] [address] * ABORH Recheck Status (05/15/2022 12:00 PM EDT) [facility] Recheck Order Order Placed [facility] ABORH Type Recheck Complete [facility] Blood 05/15/2022 12:0 0 PM EDT 05/15/2022 12:17 PM EDT Narrative Resulting Agency Comment Spec In Lab Lc TRIPP BLOOD BANK LAB ORDER NICK [facility] [place] [address] * CK (05/15/2022 12:00 PM EDT) Pathologist [facility] Creatine Kinase 87 0 - 200 unit/L [facility] Blood Venous Draw / Unknown 05/15/2022 12:00 PM EDT 05/15/2022 12:19 PM EDT Narrative Resulting Agency Comment Spec In Lab Fito Summers MD CHEMISTRY ORDERABLES Performing Organization Address City/[facility]/ZIP Co de Phone Number [facility] [place] [address] * Antibody screen (05/15/2022 12:00 PM EDT) Ab Screen Interp Negative [facility] Expires at [id number] on: 05/18/2022 [facility] Blood 05/15/2022 12:0 0 PM EDT 05/15/2022 12:17 PM EDT Narrative Resulting Agency Comment Spec In Lab Lc TRIPP BLOOD BANK LAB ORDER NICK Performing Organization Address City/[facility]/ZIP Co de Phone Number [facility] [place] [address] * ABO/Rh Typing (05/15/2022 12:00 PM EDT) ABORH Type O Pos [facility] Blood 05/15/2022 12:0 0 PM EDT 05/15/2022 12:17 PM EDT Narrative Resulting Agency Comment Spec In Lab Lc TRIPP BLOOD BANK LAB ORDER NICK Performing Organization Address [facility]/ZIP Co de Phone Number [facility] [place] [address] * (ABNORMAL) Differential, Automated (05/15/2022 12:00 PM EDT) Neutrophil % 79.4 % [facility] Neutrophil Absolute 7.49(H) 1.70 - 6.10 x10(3)/ L [facility] Lymph % 11.3 % [facility] Lymphocytes Abs 1.1 0.9 - 3.2 x10(3)/ L [facility] Monocyte % 7.8 % [facility] Monocyte Abs 0.7 0.3 - 0.9 x10(3)/[facility] Eos % 0.6 % [facility] Eosinophils Abs 0.1 0.0 - 0.4 x10(3)/[facility] Basophil % 0.6 % [facility] Baso Absolute 0.1 0.0 - 0.1 x10(3)/ L [facility] Immature Gran % 0.30 % [facility] Comment: Immature granulocytes(IG's)percentage and absolute count will include metamyelocytes, myelocytes, and promyelocytes. Blood smears from CBCs yielding IG's will be scanned manually for concordance. If this scan disagrees with the automated IG or if promyelocytes are noted, a manual differential will be performed. Immature Gran Absolute 0.03 0.00 - 0.04 x10(3)/ L [facility] Blood 05/15/2022 12:0 0 PM EDT 05/15/2022 12:19 PM EDT Narrative Resulting Agency Comment Spec In Lab Lc TRIPP HEMATOLOGY ORDERABLE S Performing Organization Address City/[facility]/ZIP Co de Phone Number [facility] [place] [address] * (ABNORMAL) Hemogram (05/15/2022 12:00 PM EDT) [facility] White Blood Cell 9.4 4.0 - 9.5 x10(3)/mc L [facility] Red Blood Cell 4.48(L) 4.58 - 5.54 x10(6)/mc L [facility] Hemoglobin 14.5 13.7 - 16.5 g/dL [facility] Hematocrit 42.4 40.5 - 48.5 % [facility] Mean Cell Volume 94.6(H) 82.9 - 93.1 fL [facility] Mean Cell Hemoglobin 32.4(H) 27.5 - 32.1 pg [facility] Mean Cell Hemoglobin Concentration 34.2 32.0 - 35.7 g/dL [facility] Platelet 209 145 - 357 x10(3)/mc L [facility] RDW Standard Deviation 45.9(H) 36.0 - 45.0 fL [facility] RDW coefficient of variation 13.1 11.4 - 13.8 % [facility] Mean Platelet Volume 10.5 7.6 - 12.9 fL [facility] NRBC% auto 0.0 % [facility] NRBC Absolute 0.000 0.000 - 0.000 x10(3)/mc L [facility] Blood 05/15/2022 12:0 0 PM EDT 05/15/2022 12:19 PM EDT Narrative Resulting Agency Comment Spec In Lab Lc TRIPP HEMATOLOGY ORDERABLE S [facility] [place] [address] * (ABNORMAL) Basic Metabolic Panel (non-fasting) (05/15/2022 12:00 PM EDT) Glucose 203(H) 65 - 199 mg/dL [facility] Comment:Diabetes: >=200 mg/d L plus symptoms Blood Urea Nitrogen 16 10 - 20 mg/dL [facility] questions. Chloride 107 98 - 107 mmol/L [facility] Carbon Dioxide 23 22 - 31 mmol/L [facility] Anion Gap 11 5 - 15 mmol/L [facility] Calcium 8.5 8.5 - 10.5 mg/dL [facility] Est Glomerular Filtration Rate 89 >=60 mL/min/1. 73 m?? [facility] Comment: This [...] In Lab Jhonny Morales DO CHEMISTRY ORDERABLES [facility] [place] [address] documented in this encounter Visit Diagnoses Diagnosis [...] mg = 1.8 mg/kg/dose ? 67.7 kg [place]y weight), Intravenous, at 11.3 mL/hr, Administer over [...] mg = 2.4 mg/kg/dose ? 67.7 kg [place] weight), Intravenous, at 15 mL/hr, Administer over [...] mg = 0.24 mg/kg/dose ? 67.7 kg [place]y weight), Oral, 2 TIMES DAILY, 2 doses, [...] mg = 0.48 mg/kg/dose ? 67.7 kg [place]y weight), Oral, 2 TIMES DAILY, 2 doses, [...] mg = 0.12 mg/kg/dose ? 67.7 kg [place]y weight), Oral, 2 TIMES DAILY, 2 doses, [...] 0852 (Given - Provider: Barbie Joyce, DION)1750 ([facility] Hold - Provider: Admin Adt - Reason: Transfer to a Procedural area)1955 ([facility] Unhold - Provider: Admin Adt) 814 (Given - Provider: Etta Don RN) metoprolol tartrate (Lopressor) tablet 12.5 mg (CANCELED) 12.5 mg, Oral, EVERY 12 HOURS SCHEDULED (2 times per day), First dose on Fri05/18/22 at 2100, Until Discontinued, Routine 0838 (Given - Provider: Caroline Bah RN)2008 (Given - Provider: Nuris Lester RN) 0853 (Given - Provider: Barbie Joyce RN)1750 ([facility] Hold - Provider: Admin Adt - Reason: Transfer to a Procedural area)1955 ([facility] Unhold - Provider: Admin Adt)2004 [...] (Given - Provider: Barbie Joyce RN)1750 ([facility] Hold - Provider: Admin Adt - Reason: Transfer to a Procedural area)1955 ([facility] Unhold - Provider: Admin Adt) [...] (Given - Provider: Barbie Joyce RN)1750 ([facility] Hold - Provider: Admin Adt - Reason: Transfer to a Procedural area)1955 ([facility] Unhold - Provider: Admin Adt) 816 (Given - Provider: Etta Don, DION) thiamine (Vitamin B1) tablet 100 mg 100 mg, Oral, DAILY, First dose on Brandi 05/16/22 at 0900, Until Discontinued, Routine 0838 (Given - Provider: Caroline Bah RN) 0853 (Given - Provider: Barbie Joyce RN)1750 ([facility] Hold - Provider: Admin Adt - Reason: Transfer to a Procedural area)1955 ([facility] Unhold - Provider: Admin Adt) 0816 (Given - Provider: Etta Don, DION) valsartan (Diovan) tablet 40 mg 40 mg, Oral, 2 TIMES DAILY, First dose on 05/18/22 at 2100, Until Discontinued 0838 (Given - Provider: Caroline Bah RN)2008 (Given - Provider: Nuris Lester RN) 0853 (Given - Provider: Barbie Joyce RN)1750 ([facility] Hold - Provider: Admin Adt - Reason: Transfer to a Procedural area)1955 ([facility] Unhold - Provider: Admin Adt)2005 [...] Reason: Transfer to a Procedural area)1955 ([facility] Unhold - Provider: Admin Adt) oxyCODONE (Roxicodone) tablet 5-10 mg(Linked Group 3) 5-10 mg, Oral, EVERY 4 HOURS PRN, Starting on Fri05/17/22 at 0655, Until Fri05/21/22 at 1743, Pain, moderate pain (4-6), Initial dose 5mg. If pain control not adequate in 60 minutes, give additional 5mg, Routine 1750 ([facility] Hold - Provider: Admin Adt - Reason: Transfer to a Procedural area)1955 ([facility] Unhold - Provider: Admin Adt) [...] Routine documented in this encounter Care Teams Rn Admissions Relationship Specialty Start Date End Date Bobby Das MD [address] [place] [address] [place] [address] PCP - General 10/02/10 documented as of this encounter
--- OUTSIDE RECORDS SUMMARY | 2024-09-30 12:11 | XMS_ITS | Encounter Summary ---
[place] [address] Care Team Providers Care Automatic Equipment Technician Name Role Phone Bobby Das MD Primary Care Provider [phone] Reason for Visit * Auth/Cert Specialty Diagnoses / Procedures Referred By Colby quezada Referred To Contact Diagnoses Limb ischemia LLE thrombus Fito Summers MD [facility] [place] [address] [facility] Referral ID Status Reason Start Date Expiration Date Visits Re quested Visits Authorized [id number] 1 1 Encounter Details Date Type Department Care Team (Late st Contact Info) Description 05/15/2022 1:20 PM EDT Anesthesia [place] [address] Cari Ventura MD [facility] [place] [address] Duong Aguillon CRNA [facility] [place] [address] Anesthesia Record Procedure Summary Procedure Name Responsible [...] 1204; median cubital vein (antecubital fossa), left; [id number] catheter system; 18 gauge; OSH; site care per policy/procedure, site symptomatic, removed per policy/procedure, catheter/device intact; 05/16/22; 1117 05/15/22 1204 by Marcia Dimas RN 05/16/22 1117 by Hilton Suarez RN (RETIRED) Peripheral IV Line - Single Lumen 05/15/22; 1204; median cubital vein (antecubital fossa), right; [id number] catheter system; 18 gauge; OSH; 05/16/22; 0738 05/15/22 1204 by Marcia Dimas RN 05/16/22 0738 by Sary Dos Santos RN ETT Removal Date: ; Removal Time: 1648 05/15/22 1340 by Torres Aguilar, DESK MONITOR 05/15/22 1648 by Torres Aguilar, DESK MONITOR Urethral Catheter 05/15/22; 1340; Surg himanshu longer [...] 05/15/22; 1700 05/15/22 1341 by Torres Aguilar, DESK MONITOR 05/15/22 1700 by Dottie Gutierrez RN Incision [...] Procedure Summary Date: 05/15/22 Room / Location: [facility] OR [address] [place] [address] MAIN OR Anesthesia Start: 1320 Anesthesia Stop: 1633 Procedure: EMBOLECTOMY OR THROMBECTOMY, FEMOROPOPLITEAL, AORTOILIAC ARTERY BY LEG INCISION (VU 19.48) (Left ) Diagnosis: (Acute Limb Ischemia) Surgeons: Fito Summers MD Responsible Provider: Cari Ventura MD Anesthesia Type: general ASA Status: 3 - Emergent All Anesthesia Providers: Anesthesiologist: Cari Ventura MD DESK MONITOR: Torres Aguilar CRNA Vitals Value Taken Time BP 108/69 05/15/22 1715 Temp 36.3 ??C (97.3 ??F) 05/15/22 1633 Pulse 110 05/15/22 1719 Resp 16 05/15/22 1719 SpO2 89 % 05/15/22 1719 Pain Level Vitals shown include unvalidated device data. Patient Location: PACU/[facility] Level of [...] Spine 07/20/2019 Bobby Marshall MD [facility] INTERVENTIONL RAD ??? IR VERTEBROPLASTY LUMBAR MULTIPLE LEVELS 07/20/2019 IR Vertebroplasty Lumbar Multiple Levels 07/20/2019 Bobby Marshall MD [facility] INTERVENTIONL RAD ??? IR VERTEBROPLASTY THORACIC SINGLE LEVEL 10/25/2020 IR Vertebroplasty Thoracic Single Level 10/25/2020 Matt Chisholm MD [facility] INTERVENTIONL RAD Social History Tobacco Use ??? [...] discussed with patient who. Plan discussed with DESK MONITOR. Anesthesia Screening documented in this encounter Plan [...] mg documented in this encounter Care Teams Automatic Equipment Technician Relationship Specialty Start Date End Date Bobby Das MD [address] [place] [address] [place] [address] PCP - General 10/02/10 documented as of this encounter
--- OUTSIDE RECORDS SUMMARY | 2024-09-30 12:11 | XMS_ITS | Encounter Summary ---
Author Organization [facility] Address [facility] [place] [address] Care Team Providers Care Garment Alteration Examiner Name Role Phone Bobby Das MD Primary Care Provider [phone] Encounter Details Date Type Department Care Team (Late st Contact Info) Description 05/15/2022 9:35 AM EDT Ancillary Procedure Radiology Library at [facility] [place] [address] Matt Branham MD [facility] [place] [address] Social History Tobacco Use Types Packs/Day Years [...] DX Chest (05/15/2022 9:31 AM EDT) Narrative [facility] - 05/15/2022 9:31 AM EDT This exam is auto-finalizing. It's purpose is for storage only. Matt Branham MD IM FILM LIBRARY ORD ERABLES [facility] [place], [place] documented in this encounter Visit Diagnoses Not on filedocumented in this encounter Care Teams Garment Alteration Examiner Relationship Specialty Start Date End Date Bobby Das MD [address] [place] [address] [place] [id number] PCP - General 10/02/10 documented as of this encounter
--- OUTSIDE RECORDS SUMMARY | 2024-09-30 12:11 | XMS_ITS | Encounter Summary ---
Author Organization [facility] Address [facility] [place] [address] Care Team Providers Care Beehive Kiln Supervisor Name Role Phone Bobby Das MD Primary Care Provider [phone] Reason for Visit * - Closed Specialty Diagnoses / Procedures Referred By Colby quezada Referred To Contact Procedures Film Library- Storage Only MR Spine Bobby Das MD [address] [place] [address] [place] [address] Referral ID Status Reason Start Date Expiration Date Visits Re quested Visits Authorized [id number] Closed 02/23/2021 02/23/2022 1 1 Encounter Details Date Type Department Care Team (Late st Contact Info) Description 02/20/2021 Ancillary Procedure Radiology Library at [facility] [address] Bobby Das MD [address] [place] [address] [place] [address] Social History Tobacco Use Types Packs/Day [...] Das MD IMG FILM LIBRARY ORD ERABLES [place], [place] documented in this encounter Visit Diagnoses Not on filedocumented in this encounter Care Teams Beehive Kiln Supervisor Relationship Specialty Start Date End Date Bobby Das MD [address] [place] [address] [place] [address] PCP - General 10/02/10 documented as of this encounter
--- OUTSIDE RECORDS SUMMARY | 2024-09-30 12:11 | XMS_ITS | Encounter Summary ---
Author Organization [facility] Address [facility] [place] [address] Care Team Providers Care Motor Driver Name Role Phone Bobby Das MD Primary Care Provider [phone] Encounter Details Date Type Department Care Team (Late st Contact Info) Description 05/15/2022 9:40 AM EDT Ancillary Procedure Radiology Library at [facility] [place] [address] Matt Branham MD [facility] [place] [address] Social History Tobacco Use Types Packs/Day Years [...] CT Abdomen (05/15/2022 9:32 AM EDT) Narrative [facility] - 05/15/2022 9:32 AM EDT This exam is auto-finalizing. It's purpose is for storage only. Matt Branham MD IM FILM LIBRARY ORD ERABLES [facility] [place], [place] documented in this encounter Visit Diagnoses Not on filedocumented in this encounter Care Teams Motor Driver Relationship Specialty Start Date End Date Bobby Das MD [address] [place] [address] [place] [id number] PCP - General 10/02/10 documented as of this encounter
--- OUTSIDE RECORDS SUMMARY | 2024-09-30 12:11 | XMS_ITS | Encounter Summary ---
Author Organization [facility] Address [facility] [place] [address] Care Team Providers Care Quality Control Clerk Name Role Phone Bobby Das MD Primary Care Provider [phone] Reason for Visit * - Closed Specialty Diagnoses / Procedures Referred By Colby quezada Referred To Contact Procedures Film Library- Storage Only DX Spine Bobby Das MD [address] [place] [address] [place] [address] Referral ID Status Reason Start Date Expiration Date Visits Re quested Visits Authorized [id number] Closed 04/13/2021 04/13/2022 1 1 Encounter Details Date Type Department Care Team (Late st Contact Info) Description 01/31/2021 Ancillary Procedure Radiology Library at [facility] [place] [address] Bobby Das MD [address] [place] [address] [place] [address] Social History Tobacco Use Types Packs/Day [...] auto-finalizing. It's purpose is for storage only. oBbby Das MD IMG FILM LIBRARY ORD ERABLES [place], [place] documented in this encounter Visit Diagnoses Not on filedocumented in this encounter Care Teams Quality Control Clerk Relationship Specialty Start Date End Date Bobby Das MD [address] [place] [address] [place] [address] PCP - General 10/02/10 documented as of this encounter
--- OUTSIDE RECORDS SUMMARY | 2024-09-30 12:11 | XMS_ITS | Encounter Summary ---
[place] [address] Care Team Providers Care Parts Manager Name Role Phone Bobby Das MD Primary Care Provider [phone] Reason for Visit * Reason Comments Left Leg Pain * Auth/Cert Specialty Diagnoses / Procedures Referred By Colby quezada Referred To Contact Diagnoses Limb ischemia LLE thrombus Fito Summers MD [facility] [place] [address] [facility] Referral ID Status Reason Start Date Expiration Date Visits Re quested Visits Authorized [id number] 1 1 Encounter Details Date Type Department Care Team (Late st Contact Info) Description 05/20/2022 3:30 PM EDT - 05/20/2022 4:30 PM EDT Surgery [place] [address] Abundio Servin MD [facility] [place] [address] CARDIAC CATHETERIZATION Social History Tobacco Use Types [...] onset Afib who presents in transfer from [facility] with acute limb ischemia [...] with ALI and emergently went to [facility] for L WIRE DRAWING DIE MAKER transverse arteriotomy and primary repair, thromboembolectomy of L SFA/PFA/WIRE DRAWING DIE MAKER, reperfusion venous drainage for 250 cc, and [...] Discharge Condition: Good Discharge to: Home with [facility]. [address] [place] [address] Future Appointments and Orders Future Appointments and Orders Future Appointments Provider Department Dept Phone 05/23/2022 10:30 AM Loretta Cohen MD Dermatology at [facility] Arrive at: [facility] [place] [place] [address] [place] [address] 06/07/2022 1:30 PM Gail Rae APRN Vascular Surgery at [facility] Arrive at: [place] Area [phone] 06/13/2022 7:30 AM Edson Lagos [place] Vascular Lab at [facility] Arrive at: [place] Area [phone] 06/13/2022 8:00 AM Fito Summers MD Vascular Surgery at [facility] Arrive at: [place] Area [phone] 06/13/2022 10:00 AM Alan Reid MD Cardiology at [facility] Arrive at: [place] Area [phone] Future Orders Complete By Expires Ziopatch 48 Hrs-15 Days [VAW7083 CPT(R)] 05/21/2022 11/20/2022 Process Instructions: Scheduling Instructions: Comments: Questions: Does the patient have a pacemaker? If yes provide HI/LO settings: Apply for 7 or 14 days?: 7 Where will study be performed?: [facility] JOSSELYN, legs, multiple levels [VAS8 Custom] 06/21/2022 (Approximate) 12/21/2022 Process Instructions: There is no in-house vascular woven label designer available on weeknights (5pm-8am), weekends, or holidays. IF THIS IS A REQUEST FOR AN EMERGENT STUDY DURING THOSE HOURS, please have the senior provider responsible for the patient page the Vascular Surgery Fellow/Senior Resident institutional research coordinator to discuss options. Scheduling Instructions: Questions: Indication for study/signs & symptoms: ALI s/p L fem cutdown with thromboembolectomy Question to be answered: Perfusion to feet? Please check toe pressure Preferred location?: [facility] Clinics Referral to Cardiology [REF12 Custom] As [...] admission to Home Health. [address] [facility] [address] (home) Date of : 1940 Inpatient DOCUMENTATION FOR VNA SERVICES (INCLUDING THOSE PATIENTS WITH MEDICARE COVERAGE REQUIRING HOME VNA SERVICES AND/OR HOSPICE SERVICES) PATIENT'S LOCATION: Koko Zamora [address] [facility] [address] (home) Cell: No relevant phone numbers on file. Dental Laboratory Manager's Name: Koko In discussion with the attending physician, it is certified that this patient is under their care and that they, or a Nurse Practitioner,Clinical Nurse specialist or Physician Engineering Mechanic who is working directly with them, had [...] for managing ADL's. HOME HEALTH CARE AGENCY: [facility] [address] [place] [id number] Start of care: Within 24 to 48 [...] from this patient's PCP: Bobby Das MD [address] [place] [address] / [place] [address] All VNA agencies which [...] For any problems or questions please call [phone] For issues on weeknights after 5pm and weekends please call [phone] and ask for the Vascular Fellow institutional research coordinator. JOSEE Santiago Vascular Surgery 05/21/2022 documented in [...] For any problems or questions please call [phone] For issues on weeknights after 5pm and weekends please call [phone] and ask for the Vascular Fellow institutional research coordinator. documented in this encounter Medications at Time of Discharge Medication Sig Dispensed Refills Start Date End Date fluticasone propionate (FLONASE) 50 mcg/actuation [place], Suspension 1 spray by Each Nare route [...] onset Afib who presents in transfer from [facility] with acute limb ischemia [...] status, full code. JOSEE Santiago 05/21/2022 Pager: [phone] * Brannon Isaacs - 05/21/2022 10:35 AM [...] plan as stated. Time IN / OUT: 8180-9520 Total Minutes, Physical Therapy: 25 Billing Code: 2 BOSTON Isaacs DPT Pager: [phone] Physical Therapy Inpatient Rehabilitation Department * [place] [...] Intermediate Cardiac Care Unit [facility] Office Visit from 04/17/2021 in Pain and Spine Center at [facility] Weight 79.8 kg (175 lb 14.8 oz) [...] and plan of care per Dr. Mcnamara (manager trade marketing). 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 [...] ED to Hosp-Admission (Current) from 05/15/[address] [place] [address] Office Visit from 04/17/2021 in Pain and Spine Center at [facility] Weight 79.8 kg (175 lb 14.8 oz) [...] and plan of care per Dr. Mcnamara (manager trade marketing). Please refer to her note above for [...] mitral repair in [address] ([address] [facility])with no CAD at that time. Currently, an [...] and the first documented HR at [facility] was 125 bpm (presented to an an [...] will continue to follow. * Dottie Hill, BARREL COATER - 05/20/2022 8:34 AM EDT Vascular Surgery Progress Note Koko Zamora is a 81 y.o. male with w new onset Afib who presents in transfer from [facility] with acute limb ischemia [...] management following Dottie Hill APRN 05/20/2022 Pager: [phone] * Laney Atkins RN - 05/20/2022 1:14 [...] 05/20/2022 1:09 AM EDT Pt. Transferred to [facility]. RN accompanied patient to floor and handed off to [facility] RN * Dottie Hill APRN - 05/19/2022 10:02 AM EDT Vascular Surgery Progress Note Koko Zamora is a 81 y.o. male with w new onset Afib who presents in transfer from [facility] with acute limb ischemia [...] management following Dottie Hill APRN 05/19/2022 Pager: [phone] * Emily Sauceda RN - 05/19/2022 6:28 AM EDT OUTCOME EVALUATION NOTE: OUTCOME SUMMARY: Patient AOx4, VSS on RA. Afib on tele. HR controlled w/ PRN metop, given x2. Denies CP, SOB, n/v. See flowsheets for NVC. Dressings to LLE CDI, prevena WV to groin intact. Voiding to urinal. LBM SPECIAL EDUCATION KINDERGARTEN TEACHER,patient stating he will maybe try the laxative [...] LLE C/D/I. Incisions to LLE WDL and FOOD SAFETY COORDINATOR. Denies n/t to BLE. 2+ dorsal pulses noted. Heparin drip infusing at 1200 units/hr. UFH within therapeutic range, next labs due with morning labs. Voiding adequately without difficulty to bedside urinal. LBM SPECIAL EDUCATION KINDERGARTEN TEACHER.Up to chair this AM with nursing staff. Worked with PT, tolerated well. Diet changed to regular at 1800. Plan is for cardiac cath on Friday. PLAN MOVING FORWARD: Bleeding precautions Pain management neurovascular checks PT/OT labor contractor INDIVIDUALIZED FALL PREVENTION INTERVENTIONS: Patient-specific fall risk [...] PLAN GOAL OUTCOME EVALUATION: * Dottie Hill, BARREL COATER - 05/18/2022 12:50 PM EDT Vascular Surgery Progress Note Koko Zamora is a 81 y.o. male with w new onset Afib who presents in transfer from [facility] with acute limb ischemia [...] mL Intravenous BID ??? PHENobarbitaL 0.12 mg/kg/dose ([place]) Oral BID ??? thiamine 100 mg Oral [...] management following Dottie Hill APRN 05/18/2022 Pager: [phone] * Brannon Isaacs - 05/18/2022 10:00 AM [...] [facility] MAIN OR Social History: Pt lives with [...] outlinedin this evaluation. Time IN / OUT: 4471-9904 Total Minutes, Physical Therapy: 30 Billing Code: Basilio Brannon Isaacs, PT Pager: [phone] Physical Therapy Inpatient Rehabilitation Department * Emily Sauceda, RN - 05/18/2022 4:34 AM EDT OUTCOME EVALUATION NOTE: OUTCOME SUMMARY: Patient AOx4, VSS on 2LNC. Afib on tele. HR above 120, MD aware, PRN IV metop given x1, HR returnedto 90's-low 100's. Denies CP, SOB, n/v. See flowsheets for NVC. Dressings to LLE CDI, prevena WV togroin intact. Voiding to urinal. LBM SPECIAL EDUCATION KINDERGARTEN TEACHER. Heparin gtt therapeutic. Pain controlled. Patient sleeping [...] adequately without difficulty to bedside urinal. LBM SPECIAL EDUCATION KINDERGARTEN TEACHER. Patient not OOB this shift. Currently NPO awaiting procedure in dental laboratory technology teacher. PLAN MOVING FORWARD: Bleeding precautions Pain management neurovascular checks PT/OT NPO for dental laboratory technology teacher INDIVIDUALIZED FALL PREVENTION INTERVENTIONS: Patient-specific fall [...] the Emergency Department as a transfer from [facility] with left lower extremity limb ischemia. He went to [facility] and was started on heparin and transferred to [facility] for evaluation by vascular surgery with [...] he will will be going to the dental laboratory technology teacher for evaluation. Will defer PT eval at present but will see as ordered post cardiac catheritizaton. Social Hx:Pt lives with his Ursula in [place], [place] in a 2 level home in [...] WBAT LLE LISBET HERMAN, PT Pager # [phone] In-Pt Rehab Medicine * Dottie Hill, BARREL COATER - 05/17/2022 7:42 AM EDT Vascular Surgery Progress Note Koko Zamora is a 81 y.o. male with w new onset Afib who presents in transfer from [facility] with acute limb ischemia [...] mL Intravenous BID ??? PHENobarbitaL 0.24 mg/kg/dose ([place]) Oral BID Followed by ??? [START ON 05/18/2022] PHENobarbitaL 0.12 mg/kg/dose ([place]) Oral BID ??? thiamine 100 mg Oral [...] management following Dottie Hill APRN 05/17/2022 Pager: [phone] * Sary Dos Santos RN - 05/17/2022 [...] onset Afib who presents in transfer from [facility] with acute limb ischemia [...] mL Intravenous BID ??? PHENobarbitaL 0.48 mg/kg/dose ([place]) Oral BID Followed by ??? [START ON 05/17/2022] PHENobarbitaL 0.24 mg/kg/dose ([place]) Oral BID Followed by ??? [START ON 05/18/2022] PHENobarbitaL 0.12 mg/kg/dose ([place]) Oral BID ??? thiamine 100 mg Oral [...] management following Edward Rodríguez MD 05/16/2022 Pager: [phone] * Sary Dos Santos RN - 05/16/2022 [...] met 2129 [facility] documented in this encounter H&P Notes [...] onset Afib who presents in transfer from [facility] with acute limb ischemia of the LLE. The patient had sudden pain starting at 630 this morning he presented [facility] where he was [...] [facility] INTER[facility]ION[facility] RAD Social Hx: Social History Socioeconomic [...] Refill ??? fluticasone propionate (FLONASE) 50 mcg/actuation [place], Suspension as needed. ??? fluorouraciL (EFUDEX) 5 [...] and consented. Tim Chicas MD 05/15/2022 Pager: [phone] documented in this encounter ED Notes * Lc Harris PA - 05/15/2022 1:20 PM EDT ED Provider Note HPI: Koko Zamora is a 81 y.o. male with history of atrial fibrillation not on anticoagulation, andGI bleeding who presents to the Emergency Department as a transfer from [facility] with left lower extremity limb ischemia. Patient says that the symptoms started roughly 630 this morning when he developed severe pain in his left lower extremity. He went to [facility] and was started on heparin and transferred to [facility] for evaluation by vascular surgery. Review [...] lower extremity earlier today and went to [facility] where it was determined that [...] before pt. Arrival. Pt. Arrived at [facility] by EMS at 1150, vascular team at [...] in an outpatient cardiac rehabilitation program at [facility] was discussed. Patient agrees to a referral to this program. Timing will depend on his recovery from Vascular surgery. He is going home w/VNA PT. I gave him the brochure for the program at [facility] for future reference. * [...] information for follow-up Home Health & Hospice, [address] [place] [address] Transportation: family or friend will provide Functional [...] *No Product type* / Secondary Insurance: [facility] Prescription Coverage: Yes This plan was formulated with input from patient and team. All are in agreement with plan. GEOFFREY MORALES has communicated with Oli - for initial IMM. Shawn López RN (Jonas) RN/CM - Cellphone: [phone] Pager: [phone] Covering Service RN/CM * Plan of Care [...] *No Product type* / Secondary Insurance: [facility] Last Physical Therapy Recommendation: home with home health, home with supervision with None Last Occupational Therapy Recommendation: with Plan for discharge is: Home w/ Services Outpatient Agency/Support Group Needs: None Home Health Services: Registered Nurse, Physical Therapy, Occupational Therapy Agency Referrals: I have met with the patient to: ?? discuss discharge planning needs. ?? provide the [facility], Office of Care Management letter from the Bridge Toll Collector pertaining to rehabreferrals. ?? provide a letter describing our affiliations within the [facility] and educate about their right to choose where referrals are sent. ?? provide a list of Home Health Agencies / Durable Medical Equipment vendors which serve their preferred geographic area. ?? provided patient with [facility] Star Quality Rating handout. They have requested referrals to: [facility]. [address] [place] [address] Note routed to a Mental Health Director who will communicate referrals to facilities and provide any required information. Transportation: family or friend will provide Barriers to discharge: None Plan going forward: Patient is going for a cardiac cath today and plan will come from there. Patient was recently seen by PT and they recommend VNA at time of discharge. [facility] was routed and pended at this time. Care Management will continue to follow and assist with discharge planning and coordination of care as indicated. Anticipated Date of Discharge: 05/21/2022 Nataly RICHMOND RN Phone: [phone] Pager: [phone] * Plan of Care - Laney Atkins [...] included. Formerly [facility] [place] [address] [place] [address] INPATIENT CARDIOLOGY CONSULT NOTE Date of Consultation: 05/17/2022 Admit Date: 05/15/2022 Hospital Day 2 days Reason for Consult: New afib Active Problems: Active Hospital Problems Diagnosis Limb ischemia Resolved Hospital Problems No resolved problems to display. HPI: Koko Zamora is a 81 y.o. male with a PMHx significant for MVP (s/p MV repair 2000), tobacco use, HLD, who presented to [facility] from OSH on 05/15 with acute limb ischemia of LLE and was found to bein atrial fibrillation. Patient had sudden onset LLE pain on 05/15 and presented to [facility], where he was started on heparin and transferred to [facility]. Upon arrival to [facility], patient was in atrial fib with RVR [...] [facility] INTER[facility] RAD IR VERTEBROPLASTY LUMBAR MULTIPLE LEVELS 07/20/2019 IR Vertebroplasty Lumbar Multiple Levels 07/20/2019 Bobby Marshall MD [facility] INTERVENTIONL RAD IR VERTEBROPLASTY THORACIC SINGLE LEVEL 10/25/2020 IR Vertebroplasty Thoracic Single Level 10/25/2020 Matt Chisholm MD [facility] INTERVENTIONL RAD PRO EMBLC/THRMBC FEMORAL POPLITEAL AORTO-ILIAC ARTERY Left 05/15/2022 EMBOLECTOMY OR THROMBECTOMY, FEMOROPOPLITEAL, AORTOILIAC ARTERY BY LEG INCISION (WRVU 19.48) performed by Fito Summers MD at [facility] MAIN OR Allergies Allergen Reactions Aspirin Other (See Comments) GI bleed Out-Patient Medications: Medications Prior to Admission Medication Sig Dispense Refill Last Dose fluorouraciL (EFUDEX) 5 % Cream daily. CRESTOR 40 mg Tablet Take 40 mg by mouth daily. fluticasone propionate (FLONASE) 50 mcg/actuation [place], Suspension as needed. ascorbic acid, vitamin C, [...] 5 mL Intravenous BID PHENobarbitaL 0.24 mg/kg/dose ([place]) Oral BID Followed by [START ON 05/18/2022] PHENobarbitaL 0.12 mg/kg/dose ([place]) Oral BID thiamine 100 mg Oral Daily folic acid 1,000 mcg Oral Daily multivitamin with minerals 1 tablet Oral Daily heparin (porcine) infusion 1,200 Units/hr (05/17/22 5909) Family History: No family history on file. [...] to Hosp-Admission (Current) from 05/15/2022 in 3 [facility] Office Visit from 04/17/2021 in Pain and Spine Center at [facility] Weight 79.8 kg (175 lb 14.8 oz) [...] tolerated. - We will continue to follow Anne-Mraie Larson MD Pager [phone] Clinic: [phone] 05/17/22 6:22 PM * Initial Assessments - [...] spouse would be surrogate decision maker per [place] surrogate decision making law. (Only good for 180 days) Any patient receiving care at [facility] must abide by [place] law. The hierarchy for surrogate decision making [...] (i) The agent with financial power of health care attorney or a conservator appointed in accordance [...] raised toilet seat Home Address confirmed as: [facility] [facility] [address] Social & Family Supports: All names listed below confirmed with patient as Incorrect. Will notify oli to correct. Wifes address is same as and phone is [phone]. Extended Emergency Contact Information Primary Emergency Contact: Ursula Zamora Address: [address] [place] [address] [facility] Relation: Spouse Current [...] *No Product type* / Secondary Insurance: [facility] Prescription Coverage: Yes Preferred Pharmacy: [id number] - [place], [place] - [address] [facility] [address] [facility] [address] [id number] - [place], [place] - [address] [facility] [address] [facility] [address] Status: Patient is a : unable to assess Primary Care Provider: Bobby Das MD [phone] Patient/Caregiver Goals of Treatment: to walk again Potential Needs for Transition of Care: none noted per 05/16 IDR Transportation: family will provide Transportation Anticipated: family or friend will provide Concerns to be Addressed: no discharge needs identified Assessment: Patient is admitted to vascular surg service for left lower extremity limb ischemia Plan: Per PT OT recommendations . Has used [facility] in the past. A member of the Care Management team will continue to monitor progress, follow for continuity of care and assist with transition of care planning. Ifrah Bell RN BSN Instructional ManagerNeedle Straightener of Care Management Pager [phone] * Brief Op Note - Erin Garza MD - 05/15/2022 5:04 PM EDT Brief Operative Note Patient Name: Koko Zamora : [id number] MR#: [id number] Case Date: 05/15/2022 Surgeon: Surgeon(s) and Role: * Fito Summers MD - Primary * Erin aGrza MD - Resident Preoperative diagnosis: Acute Limb [...] MD - 05/15/2022 2:[address] [facility] Operative Note Patient Name: Koko Zamora : [id number] MR#: [id number] Case Date: 05/15/2022 Surgeon: Surgeon(s) and Role: [...] Text Report Department: Vascular Surgery Lab Patient: [id number] (KOKO ZAMORA) CPT: 45611 Referring Physician: FITO SUMMERS ?? Phone: Indications: s/p L WIRE DRAWING DIE MAKER endart. Diabetes mellitus: no Findings: Right ?Pressure [...] 12:35 PM EDT) UF Heparin 0.42 IU/mL [facility] Comment: Heparin (anti-Xa) levels [...] Lab Fito Summers MD HEMATOLOGY ORDERABLE S [facility] [place] [address] * Differential, Automated (05/21/2022 6:15 AM EDT) Neutrophil % 58.8 % [facility] Neutrophil Absolute 3.97 1.70 - 6.10 x10(3)/[facility] LABORAT[facility] Lymph % 25.2 % [facility] Lymphocytes Abs 1.7 0.9 - 3.2 x10(3)/[facility] LABORATORY Monocyte % 12.9 % [facility] Monocyte Abs 0.9 0.3 - 0.9 x10(3)/[facility] LABORATORY Eos % 2.1 % [facility] Eosinophils Abs 0.1 0.0 - 0.4 x10(3)/[facility] LABOR[facility]ORY Basophil % 0.4 % [facility] Baso Absolute 0.0 0.0 - 0.1 x10(3)/[facility] LABORATORY Immature Gran % 0.60 % [facility] Comment: Immature granulocytes(IG's)percentage and absolute count will include metamyelocytes, myelocytes, and promyelocytes. Blood smears from CBCs yielding IG's will be scanned manually for concordance. If this scan disagrees with the automated IG or if promyelocytes are noted, a manual differential will be performed. Immature Gran Absolute 0.04 0.00 - 0.04 x10(3)/[facility] LABORATORY Blood 05/21/2022 6:15 AM EDT 05/21/2022 6:38 AM EDT Narrative Resulting Agency Comment Spec In Lab Edward Rodríguez MD HEMATOLOGY ORDER NICK [facility] [place] [address] * (ABNORMAL) Hemogram (05/21/2022 6:15 AM EDT) [facility] White Blood Cell 6.8 4.0 - 9.5 x10(3)/ L [facility] Red Blood Cell 3.59(L) 4.58 - 5.54 x10(6)/ L [facility] Hemoglobin 11.8(L) 13.7 - 16.5 g/dL [facility] Hematocrit 34.5(L) 40.5 - 48.5 % [facility] Mean Cell Volume 96.1(H) 82.9 - 93.1 [facility] Mean Cell Hemoglobin 32.9(H) 27.5 - 32.1 pg [facility] Mean Cell Hemoglobin Concentration 34.2 32.0 - 35.7 g/dL [facility] Platelet 198 145 - 357 x10(3)/[facility] LABORATORY RDW Standard Deviation 44.9 36.0 - 45.0 [facility] RDW coefficient of variation 12.6 11.4 - 13.8 % [facility] Mean Platelet Volume 10.0 7.6 - 12.9 [facility]ORY NRBC% auto 0.3 % [facility] NRBC Absolute 0.020(H) 0.000 - 0.000 x10(3)/[facility] LABORATORY Blood 05/21/2022 6:15 AM EDT 05/21/2022 6:38 AM EDT Narrative Resulting Agency Comment Spec In Lab Edward Rodríguez MD HEMATOLOGY ORDER NICK [facility] [place] [address] * EKG 12 Lead (05/20/2022 7:04 PM EDT) Ventricular rate 101 BPM MUSE SYSTEM QRS Duration 116 ms MUSE SYSTEM Q-T Interval 378 ms MUSE SYSTEM QTC Calculated (Bezet) 490 ms MUSE SYSTEM Calculated R Independence -53 degrees MUSE SYSTEM Calculated T [place] 101 degrees MUSE SYSTEM INTERPRETATION Atrial fibrillation [...] Modality Other Narrative 05/20/2022 7:09 PM EDT ?[facility] ? Cardiac Catheterization/Intervention Report ? Patient Name: ZamoraKoko ? Procedure Date: 05/20/2022 ? A #: [id number] ? Primary Physician: Abundio Servin ? Case #: [id number] ? File Name: [id number] ? Catheterization Order Number: [id number] ? [facility] ? Final Report [place], [place] ? Patient Name: ? Koko J. Zamora ? ID#: ?[id number] ? : ?1940 ? Procedure Date: ? [...] procedure was Urgent. The indication for ?the dental laboratory technology teacher visit is cardiomyopathy. Chest pain symptom [...] ?3.5 guiding catheter and a 3.5 Fr [facility] [address] ??20 Mhz. ??Imaging ?was successful. ??Image [...] A premounted 2.75 x 30 mm Rudy Jarreau (AMPARO) was deployed ? with a maximum [...] require ?modification of this regimen. Consult [facility] [...] Procedure Note Abundio Servin MD - 07/12/2022 [facility] Cardiac Catheterization/Intervention Report Patient Name: Sera Koko SullivanAlmita Procedure Date: 05/20/2022 A #: [id number] Primary Physician: Abundio Servin Case #: File Name: [id number] Catheterization Order Number: [id number] [facility] FinalReport [place], [place] Patient Name: Koko Zamora ID#:[id number] :1940 Procedure Date: May 20, 2022 Case [...] diagnostic procedure was Urgent. The indicationfor the dental laboratory technology teacher visit is cardiomyopathy. Chest pain symptom [...] 3.5 guiding catheter and a 3.5 Fr [facility] [address] 20 Mhz.Imaging was successful. Image quality [...] The lesion was predilated with a 2.00mm [id number] MM balloon with a maximum inflation pressure of 12atmospheres. A premounted 2.75 x 30 mm Rudy Jarreau (AMPARO) wasdeployed with a maximum inflation pressure [...] mayrequire modification of this regimen. Consult [facility] [place] Interventional Cardiologyfor questions. The 1 year bleeding [...] * POCT Glucose (05/20/2022 5:42 PM EDT) [facility] Glucose, POC 123 65 - 199 mg/dL [facility] Comment: Supplemental ranges: <140 mg/dL before meals <180 mg/dL all other times of the day Blood 05/20/2022 5:42 PM EDT 05/20/2022 5:42 PM EDT Fito Summers MD POINT OF CARE TEST O RDERABLES [facility] [place] [address] * (ABNORMAL) BMP w/fasting Glucose (05/20/2022 10:50 AM EDT) Glucose Fasting 152(H) 65 - 99 mg/dL [facility] Comment: ?Fasting* Glucose Interpretive Criteria [...] of Diabetes Mellitus, Position Statement from the [place] [employer]. ??Diabetes Care, Volume 33, Supplement 1, Nov 2009 Blood Urea Nitrogen 11 10 - 20 mg/dL [facility] Creatinine 0.63(L) 0.80 - 1.50 mg/dL [facility] [...] questions. Chloride 103 98 - 107 mmol/L [facility] Carbon Dioxide 24 22 - 31 mmol/L [facility] Anion Gap 10 5 - 15 mmol/L [facility] Calcium 8.7 8.5 - 10.5 mg/dL [facility] Est Glomerular Filtration Rate 97 >=60 mL/min/1. 73 m?? [facility] Comment: This patient's [...] Narrative Resulting Agency Comment Spec In Lab Fiot Summers MD CHEMISTRY ORDERABLES Performing Organization Address [facility] Co de Phone Number [facility] [place] [address] * Heparin (unfractionated) Level (05/20/2022 5:02 AM EDT) UF Heparin 0.57 IU/mL [facility] Comment: Heparin (anti-Xa) levels [...] Organization Address City/[facility]/ZIP Co de Phone Number [facility] [place] [address] * (ABNORMAL) Differential, Automated (05/20/2022 5:02 AM EDT) [facility] Neutrophil % 58.1 % [facility] Neutrophil Absolute 4.52 1.70 - 6.10 x10(3)/ L [facility] Lymph % 24.1 % [facility] Lymphocytes Abs 1.9 0.9 - 3.2 x10(3)/ L [facility] Monocyte % 13.8 % [facility] Monocyte Abs 1.1(H) 0.3 - 0.9 x10(3)/[facility]OR[facility] Eos % 2.6 % [facility] Eosinophils Abs 0.2 0.0 - 0.4 x10(3)/[facility]ORY Basophil % 0.8 % [facility] Baso Absolute 0.1 0.0 - 0.1 x10(3)/[facility] LABORATORY Immature Gran % 0.60 % [facility] Comment: Immature granulocytes(IG's)percentage and absolute count will include metamyelocytes, myelocytes, and promyelocytes. Blood smears from CBCs yielding IG's will be scanned manually for concordance. If this scan disagrees with the automated IG or if promyelocytes are noted, a manual differential will be performed. Immature Gran Absolute 0.05(H) 0.00 - 0.04 x10(3)/ L [facility] Blood 05/20/2022 5:02 AM EDT 05/20/2022 5:19 AM EDT Narrative Resulting Agency Comment Spec In Lab Edward Rodríguez MD HEMATOLOGY ORDER NICK [facility] [place] [address] * (ABNORMAL) Hemogram (05/20/2022 5:02 AM EDT) [facility] White Blood Cell 7.8 4.0 - 9.5 x10(3)/mc L [facility] Red Blood Cell 3.53(L) 4.58 - 5.54 x10(6)/mc L [facility] Hemoglobin 11.4(L) 13.7 - 16.5 g/dL [facility] Hematocrit 34.3(L) 40.5 - 48.5 % [facility] Mean Cell Volume 97.2(H) 82.9 - 93.1 fL [facility] Mean Cell Hemoglobin 32.3(H) 27.5 - 32.1 pg [facility] Mean Cell Hemoglobin Concentration 33.2 32.0 - 35.7 g/dL [facility] Platelet 181 145 - 357 x10(3)/[facility] RDW Standard Deviation 46.4(H) 36.0 - 45.0 [facility]ATORY RDW coefficient of variation 13.0 11.4 - 13.8 % [facility] Mean Platelet Volume 10.4 7.6 - 12.9 fL [facility] NRBC% auto 0.0 % [facility] NRBC Absolute 0.000 0.000 - 0.000 x10(3)/[facility] Blood 05/20/2022 5:02 AM EDT 05/20/2022 5:19 AM EDT Narrative Resulting Agency Comment Spec In Lab Edward Rodríguez MD HEMATOLOGY ORDER NICK [facility] [place] [address] * Heparin (unfractionated) Level (05/19/2022 3:26 AM EDT) Pathologist [facility] UF Heparin 0.59 IU/mL [facility] Comment: Heparin (anti-Xa) levels [...] Lab Fito Summers MD HEMATOLOGY ORDERABLE S [facility] [place] [address] * (ABNORMAL) Differential, Automated (05/19/2022 3:26 AM EDT) Neutrophil % 62.1 % [facility] Neutrophil Absolute 4.59 1.70 - 6.10 x10(3)/mc L [facility] Lymph % 22.1 % [facility] Lymphocytes Abs 1.6 0.9 - 3.2 x10(3)/mc L [facility] Monocyte % 13.5 % [facility] Monocyte Abs 1.0(H) 0.3 - 0.9 x10(3)/mc L [facility] Eos % 1.3 % [facility] Eosinophils Abs 0.1 0.0 - 0.4 x10(3)/mc L [facility] Basophil % 0.5 % [facility] Baso Absolute 0.0 0.0 - 0.1 x10(3)/mc L [facility] Immature Gran % 0.50 % [facility] Comment: Immature granulocytes(IG's)percentage and absolute count will include metamyelocytes, myelocytes, and promyelocytes. Blood smears from CBCs yielding IG's will be scanned manually for concordance. If this scan disagrees with the automated IG or if promyelocytes are noted, a manual differential will be performed. Immature Gran Absolute 0.04 0.00 - 0.04 x10(3)/ L [facility] Blood 05/19/2022 3:26 AM EDT 05/19/2022 3:59 AM EDT Narrative Resulting Agency Comment Spec In Lab Edward Rodríguez MD HEMATOLOGY ORDER NICK [facility] [place] [address] * (ABNORMAL) Hemogram (05/19/2022 3:26 AM EDT) White Blood Cell 7.4 4.0 - 9.5 x10(3)/[facility] Red Blood Cell 3.74(L) 4.58 - 5.54 x10(6)/ L [facility] Hemoglobin 12.1(L) 13.7 - 16.5 g/dL [facility] Hematocrit 36.4(L) 40.5 - 48.5 % [facility] Mean Cell Volume 97.3(H) 82.9 - 93.1 fL [facility] Mean Cell Hemoglobin 32.4(H) 27.5 - 32.1 pg [facility] Mean Cell Hemoglobin Concentration 33.2 32.0 - 35.7 g/dL [facility] Platelet 168 145 - 357 x10(3)/ L [facility] RDW Standard Deviation 46.9(H) 36.0 - 45.0 fL [facility] RDW coefficient of variation 13.0 11.4 - 13.8 % [facility] Mean Platelet Volume 10.5 7.6 - 12.9 [facility] LABORATORY NRBC% auto 0.0 % [facility] NRBC Absolute 0.000 0.000 - 0.000 x10(3)/mc L [facility] Blood 05/19/2022 3:26 AM EDT 05/19/2022 3:59 AM EDT Narrative Resulting Agency Comment Spec In Lab Edward Rodríguez MD HEMATOLOGY ORDER NICK Performing Organization Address [facility] Co de Phone Number [facility] [place] [address] * TSH (05/18/2022 8:00 PM EDT) Thyroid Stimulating Hormone 2.27 0.27 - 4.20 mcIU/mL [facility] Comment: Reference Interval (mcIU/mL): Females: ??First Trimester: 0.23-3.88 ??Second Trimester: 0.22-3.90 ??Third Trimester: 0.44-4.66 Blood 05/18/2022 8:00 PM EDT 05/18/2022 8:06 PM EDT Narrative Resulting Agency Comment Spec In Lab Fito Summers MD CHEMISTRY ORDERABLES Performing Organization Address [facility] Phone Number [facility] [place] [address] * (ABNORMAL) Differential, Automated (05/18/2022 3:34 AM EDT) Neutrophil % 67.2 % [facility] Neutrophil Absolute 5.89 1.70 - 6.10 x10(3)/mc L [facility] Lymph % 17.1 % [facility] Lymphocytes Abs 1.5 0.9 - 3.2 x10(3)/mc L [facility] Monocyte % 13.6 % [facility] Monocyte Abs 1.2(H) 0.3 - 0.9 x10(3)/mc L [facility] Eos % 1.0 % [facility] Eosinophils Abs 0.1 0.0 - 0.4 x10(3)/mc L [facility] Basophil % 0.6 % [facility] Baso Absolute 0.0 0.0 - 0.1 x10(3)/[facility]ATORY Immature Gran % 0.50 % [facility] Comment: Immature granulocytes(IG's)percentage and absolute count will include metamyelocytes, myelocytes, and promyelocytes. Blood smears from CBCs yielding IG's will be scanned manually for concordance. If this scan disagrees with the automated IG or if promyelocytes are noted, a manual differential will be performed. Immature Gran Absolute 0.04 0.00 - 0.04 x10(3)/[facility] Blood 05/18/2022 3:34 AM EDT 05/18/2022 3:48 AM EDT Narrative Resulting Agency Comment Spec In Lab Edward Rodríguez MD HEMATOLOGY ORDER NICK [facility] [place] [address] * (ABNORMAL) Hemogram (05/18/2022 3:34 AM EDT) White Blood Cell 8.8 4.0 - 9.5 x10(3)/[facility]ORY Red Blood Cell 3.45(L) 4.58 - 5.54 x10(6)/[facility] Hemoglobin 11.2(L) 13.7 - 16.5 g/dL [facility] Hematocrit 33.0(L) 40.5 - 48.5 % [facility] Mean Cell Volume 95.7(H) 82.9 - 93.1 fL [facility] Mean Cell Hemoglobin 32.5(H) 27.5 - 32.1 pg [facility] Mean Cell Hemoglobin Concentration 33.9 32.0 - 35.7 g/dL [facility] Platelet 130(L) 145 - 357 x10(3)/[facility]ATORY RDW Standard Deviation 46.2(H) 36.0 - 45.0 fL [facility] RDW coefficient of variation 13.2 11.4 - 13.8 % [facility] Mean Platelet Volume 10.8 7.6 - 12.9 [facility]ATORY NRBC% auto 0.0 % [facility] NRBC Absolute 0.000 0.000 - 0.000 x10(3)/mc L [facility] Blood 05/18/2022 3:34 AM EDT 05/18/2022 3:48 AM EDT Narrative Resulting Agency Comment Spec In Lab Edward Rodríguez MD HEMATOLOGY ORDER NICK Performing Organization Address [facility]/[place] [address] * Heparin (unfractionated) Level (05/18/2022 3:34 AM EDT) UF Heparin 0.59 IU/mL [facility] Comment: Heparin (anti-Xa) levels [...] Organization Address City/[facility]/ZIP Co de Phone Number [facility] [place] [address] * Magnesium (05/17/2022 3:33 AM EDT) Magnesium 0.76 0.69 - 1.07 mmol/L [facility] Blood Venous Draw / Unknown 05/17/2022 3:33 AM EDT 05/17/2022 4:05 AM EDT Narrative Resulting Agency Comment Spec In Lab Dottie Hill APRN CHEMISTRY ORDERABL ES [facility] [address] [place] [address] * (ABNORMAL) Basic Metabolic Panel (non-fasting) (05/17/2022 3:33 AM EDT) Glucose 158 65 - 199 mg/dL [facility] Comment:Diabetes: >=200 mg/d L plus symptoms Blood Urea Nitrogen 12 10 - 20 mg/dL [facility] Creatinine 0.74(L) 0.80 - 1.50 mg/dL [facility] [...] questions. Chloride 102 98 - 107 mmol/L [facility] Carbon Dioxide 25 22 - 31 mmol/L [facility] Anion Gap 10 5 - 15 mmol/L [facility] Calcium 8.4(L) 8.5 - 10.5 mg/dL [facility] Est Glomerular Filtration Rate 92 >=60 mL/min/1. 73 m?? [facility] Comment: This patient's [...] In Lab Fito Summers MD CHEMISTRY ORDERABLES [facility] [place] [address] * (ABNORMAL) Differential, Automated (05/17/2022 3:33 AM EDT) Neutrophil % 65.5 % [facility] Neutrophil Absolute 6.84(H) 1.70 - 6.10 x10(3)/mc L [facility] Lymph % 19.7 % [facility] Lymphocytes Abs 2.1 0.9 - 3.2 x10(3)/mc L [facility] Monocyte % 13.1 % [facility] Monocyte Abs 1.4(H) 0.3 - 0.9 x10(3)/mc L [facility] Eos % 0.6 % [facility] Eosinophils Abs 0.1 0.0 - 0.4 x10(3)/mc L [facility] Basophil % 0.6 % [facility] Baso Absolute 0.1 0.0 - 0.1 x10(3)/mc L [facility] Immature Gran % 0.50 % [facility] Comment: Immature granulocytes(IG's)percentage and absolute count will include metamyelocytes, myelocytes, and promyelocytes. Blood smears from CBCs yielding IG's will be scanned manually for concordance. If this scan disagrees with the automated IG or if promyelocytes are noted, a manual differential will be performed. Immature Gran Absolute 0.05(H) 0.00 - 0.04 x10(3)/ L [facility] Blood 05/17/2022 3:33 AM EDT 05/17/2022 3:53 AM EDT Narrative Resulting Agency Comment Spec In Lab Edward Rodríguez MD HEMATOLOGY ORDER NICK [facility] [place] [address] * (ABNORMAL) Hemogram (05/17/2022 3:33 AM EDT) White Blood Cell 10.4(H) 4.0 - 9.5 x10(3)/ L [facility] Red Blood Cell 3.72(L) 4.58 - 5.54 x10(6)/[facility] Hemoglobin 12.0(L) 13.7 - 16.5 g/dL [facility] Hematocrit 36.4(L) 40.5 - 48.5 % [facility] Mean Cell Volume 97.8(H) 82.9 - 93.1 fL [facility] Mean Cell Hemoglobin 32.3(H) 27.5 - 32.1 pg [facility] Mean Cell Hemoglobin Concentration 33.0 32.0 - 35.7 g/dL [facility] Platelet 149 145 - 357 x10(3)/[facility]ORY RDW Standard Deviation 48.7(H) 36.0 - 45.0 fL [facility] RDW coefficient of variation 13.5 11.4 - 13.8 % [facility] Mean Platelet Volume 10.6 7.6 - 12.9 fL [facility] NRBC% auto 0.0 % [facility] NRBC Absolute 0.000 0.000 - 0.000 x10(3)/ L [facility] Blood 05/17/2022 3:33 AM EDT 05/17/2022 3:53 AM EDT Narrative Resulting Agency Comment Spec In Lab Edward Rodríguez MD HEMATOLOGY ORDER NICK Performing Organization Address [facility]/ZIP Co de Phone Number [facility] [place] [address] * (ABNORMAL) Urinalysis Microscopic Exam (05/16/2022 11:15 PM EDT) RBC, Urine 8(H) 0 - 3 /HPF [facility] WBC, Urine 2 0 - 3 /HPF [facility] Clean Catch Urine 05/16/2022 11:15 PM EDT 05/16/2022 11:30 PM EDT Narrative Resulting Agency Comment Spec In Lab Barbie Ashraf MD URINE ORDERABLES Performing Organization Address [facility] Co de Phone Number [facility] [place] [address] * (ABNORMAL) Urinalysis with reflex Culture (05/16/2022 11:15 PM EDT) Glucose, Urine Dipstick Negative Negative mg/dL [facility] Protein, Urine Dipstick Negative Negative mg/dL [facility] Bilirubin, Urine Dipstick Negative Negative mg/dL [facility] Comment: Clinical correlation required for positive Urine Bilirubin results as false positive may occur with some drugs and drug related products. If a false positive is suspected a serum total bilirubin should be considered if clinically indicated. Urobilinogen, Urine Dipstick Normal Normal mg/dL [facility] pH, Urn (dipstick) 6.0 5.0 - 8.0 [facility] Blood, Urine Dipstick Small(A) Negative mg/dL [facility] Ketone, Urine Dipstick Trace(A) Negative mg/dL [facility] Nitrite, Urine Dipstick Negative Negative [facility] Leukocytes, Urine Dipstick Negative Negative [facility] Appearance, Urine Dipstick Clear Clear [facility] Specific [place] Urine Automated 1.021 1.005 - 1.030 [facility] Color, Urine Dipstick Yellow Yellow [facility] Reflex to Culture No [facility] Clean Catch Urine 05/16/2022 11:15 PM EDT 05/16/2022 11:30 PM EDT Narrative Resulting Agency Comment Spec In Lab Fito Summers MD URINE ORDERABLES Performing Organization Address [facility] Co de Phone Number [facility] [place] [address] * Heparin (unfractionated) Level (05/16/2022 10:59 PM EDT) UF Heparin 0.65 IU/mL [facility] Comment: Specimen drawn more [...] Organization Address City/[facility]/ZIP Co de Phone Number [facility] [place] [address] * XR Chest One View (05/16/2022 9:14 [...] who have questions please contact the health tire care manager that requested your imaging first. [...] patients who have questions please contactthe health tire care manager that requested your imaging first. Fito Summers MD IMG DX ORDERABLES * EKG 12 Lead (05/16/2022 8:57 PM EDT) Ventricular rate 117 BPM MUSE SYSTEM QRS Duration 112 ms MUSE SYSTEM Q-T Interval 346 ms MUSE SYSTEM QTC Calculated (Bezet) 482 ms MUSE SYSTEM Calculated R [place] -48 degrees MUSE SYSTEM Calculated T [place] 111 degrees MUSE SYSTEM INTERPRETATION Atrial fibrillation with rapid ventricular response Left anterior fascicular block Minimal voltage criteria for LVH, may be normal variant ( [place] product ) Nonspecific ST and T wave [...] 4:34 PM EDT) UF Heparin 0.53 IU/mL [facility] Comment: Heparin (anti-Xa) levels [...] MD HEMATOLOGY ORDERABLE S Performing Organization Address [facility]/State/ZIP Co de Phone Number [facility] [place] [address] * ECHO COMPLETE W CONTRAST (05/16/2022 12:49 PM EDT) EF 28 HEARTLAB SYSTEM Anatomical Region Laterality Modality Cardiac Other 05/16/2022 11:2 2 AM EDT Narrative 05/16/2022 1:54 PM EDT ?[facility] ?[address] ? [place], [place] [address] ?Voice: ?Fax: ? Echocardiogram Report Name: KOKO ZAMORA Laurie ?Study Date: 05/16/2022 11:22 AM ? Patient Location: [facility] 0303 : 1940 ? Height: 67.5 in ? Account: [id number] Age: 81 yrs ? Weight: 176 lb Gender: Male ?BSA: 1.9 m2 Ordering Physician: FITO SUMMERS Referring Physician: MAIK FLORIAN Performed By: Jolene Bernard RDCS Exam Location: [facility]. Interpretation Summary Left [...] and LV systolic dysfunction are new. Procedure Complete-[id number]. Image enhancement Optison was used for both [...] Procedure Note Gladys Jaime MD - 05/16/2022 [facility] [place] [address] Voice: Fax: Echocardiogram Report Name: ZAMORAKOKO Study Date: 1:22 AM Patient Location: [id number] : 1940 Height: 67.5 in Account: [id number] Age: 81 yrs Weight: 176 lb Gender: Male BSA: 1.9 m2 Ordering Physician: FITO SUMMERS Referring Physician: MAIK FLORIAN Performed By: Jolene Bernard RDCS Exam Location: [facility]. Interpretation Summary Left [...] moderate and LV systolicdysfunction are new. Procedure Complete-[id number]. Image enhancement Optison was used for both [...] 3:01 AM EDT) Neutrophil % 78.8 % [facility] Neutrophil Absolute 9.11(H) 1.70 - 6.10 x10(3)/mc L [facility] Lymph % 9.4 % [facility] Lymphocytes Abs 1.1 0.9 - 3.2 x10(3)/ L [facility] Monocyte % 10.9 % [facility] Monocyte Abs 1.3(H) 0.3 - 0.9 x10(3)/[facility] Eos % 0.0 % [facility] Eosinophils Abs 0.0 0.0 - 0.4 x10(3)/[facility] Basophil % 0.3 % [facility] Baso Absolute 0.0 0.0 - 0.1 x10(3)/[facility]ORY Immature Gran % 0.60 % [facility] Comment: Immature granulocytes(IG's)percentage and absolute count will include metamyelocytes, myelocytes, and promyelocytes. Blood smears from CBCs yielding IG's will be scanned manually for concordance. If this scan disagrees with the automated IG or if promyelocytes are noted, a manual differential will be performed. Immature Gran Absolute 0.07(H) 0.00 - 0.04 x10(3)/[facility] Blood 05/16/2022 3:01 AM EDT 05/16/2022 3:36 AM EDT Narrative Resulting Agency Comment Spec In Lab Erin Garza MD HEMATOLOGY ORDERABLE S [facility] [place] [address] * (ABNORMAL) Hemogram (05/16/2022 3:01 AM EDT) White Blood Cell 11.6(H) 4.0 - 9.5 x10(3)/[facility] Red Blood Cell 3.62(L) 4.58 - 5.54 x10(6)/ L [facility] Hemoglobin 12.0(L) 13.7 - 16.5 g/dL [facility] Hematocrit 35.3(L) 40.5 - 48.5 % [facility] Mean Cell Volume 97.5(H) 82.9 - 93.1 fL [facility] Mean Cell Hemoglobin 33.1(H) 27.5 - 32.1 pg [facility] Mean Cell Hemoglobin Concentration 34.0 32.0 - 35.7 g/dL [facility] Platelet 151 145 - 357 x10(3)/mc L [facility] RDW Standard Deviation 47.6(H) 36.0 - 45.0 fL [facility] RDW coefficient of variation 13.3 11.4 - 13.8 % [facility] Mean Platelet Volume 10.5 7.6 - 12.9 fL [facility] NRBC% auto 0.0 % [facility] NRBC Absolute 0.000 0.000 - 0.000 x10(3)/mc L [facility] Blood 05/16/2022 3:01 AM EDT 05/16/2022 3:36 AM EDT Narrative Resulting Agency Comment Spec In Lab Erin Garza MD HEMATOLOGY ORDERABLE S Performing Organization Address City/[facility]/ZIP Co de Phone Number [facility] [place] [address] * Phosphorus (05/16/2022 3:01 AM EDT) Phosphorus 3.7 2.5 - 4.5 mg/dL [facility] Blood 05/16/2022 3:01 AM EDT 05/16/2022 3:36 AM EDT Narrative Resulting Agency Comment Spec In Lab Fito Summers MD CHEMISTRY ORDERABLES Performing Organization Address City/[facility]/ZIP Co de Phone Number [facility] [place] [address] * Magnesium (05/16/2022 3:01 AM EDT) Magnesium 0.77 0.69 - 1.07 mmol/L [facility] Blood 05/16/2022 3:01 AM EDT 05/16/2022 3:36 AM EDT Narrative Resulting Agency Comment Spec In Lab Fito Summers MD CHEMISTRY ORDERABLES [facility] [place] [address] * (ABNORMAL) Basic Metabolic Panel (non-fasting) (05/16/2022 3:01 AM EDT) Glucose 222(H) 65 - 199 mg/dL [facility] Comment:Diabetes: >=200 mg/d L plus symptoms Blood Urea Nitrogen 12 10 - 20 mg/dL [facility] Creatinine 0.66(L) 0.80 - 1.50 mg/dL [facility] [...] questions. Chloride 108(H) 98 - 107 mmol/L [facility] Carbon Dioxide 22 22 - 31 mmol/L [facility] Anion Gap 8 5 - 15 mmol/L [facility] Calcium 8.2(L) 8.5 - 10.5 mg/dL [facility] Est Glomerular Filtration Rate 95 >=60 mL/min/1. 73 m?? [facility] Comment: This patient's [...] In Lab Fito Summers MD CHEMISTRY ORDERABLES [facility] [place] [address] * (ABNORMAL) BLOOD GAS 2 ARTERIAL (05/15/2022 3:33 PM EDT) pH, Arterial 7.33(L) 7.35 - 7.45 [facility] PCO2, Arterial 41 35 - 45 mmHg [facility] PO2, Arterial 131(H) 85 - 104 mmHg [facility] Bicarbonate, Arterial 21.1 20.0 - 26.0 mmol/L [facility] Base Excess, Arterial -4.8(L) -3.0 - 3.0 mmol/L [facility] Hgb Blood Gas 13.4(L) 13.7 - 16.5 g/dL [facility] Oxyhemoglobin, Arterial 96.9 94.0 - 97.0 % [facility] Carboxyhemoglob in, Arterial 1.4 % [facility] Comment: Nonsmokers: 0.5-1.5% COHB Smokers: Variable, but usually less than 10% Toxic: 20-30% COHB Lethal: Greater than 60% COHB Methemoglobin, Arterial 0.3 <=1.5 % [facility] Na Whole Blood 139 135 - 145 mmol/L [facility] K Whole Blood 3.8 3.5 - 5.0 mmol/L [facility] Comment: Please note: Patients with WBC >100,000 may have falsely elevated Potassium levels. Contact the Clinical Chemistry Laboratory if there are any questions. ICa Whole Blood 1.32 1.15 - 1.33 mmol/L [facility] Comment: Note: ??Total bilirubin higher than 20 mg/dL may lead to falsely low ionized calcium. CL Whole Blood 113(H) 98 - 107 mmol/L [facility] Gluc Whole Bld 136 65 - 199 mg/dL [facility] Comment:Diabetes: >=200 mg/d L plus symptoms. Lactate WB 2.0 0.5 - 2.2 mmol/L [facility] Blood 05/15/2022 3:33 PM EDT 05/15/2022 3:[address] Jamel Torre MD POINT OF CARE TEST O RDERABLES [facility] [place] [address] * (ABNORMAL) BLOOD GAS 2 ARTERIAL (05/15/2022 2:06 PM EDT) pH, Arterial 7.39 7.35 - 7.45 [facility] PCO2, Arterial 35 35 - 45 mmHg [facility] PO2, Arterial 135(H) 85 - 104 mmHg [facility] Bicarbonate, Arterial 20.8 20.0 - 26.0 mmol/L [facility] Base Excess, Arterial -4.2(L) -3.0 - 3.0 mmol/L [facility] Hgb Blood Gas 14.5 13.7 - 16.5 g/dL [facility] Oxyhemoglobin, Arterial 97.2(H) 94.0 - 97.0 % [facility] Carboxyhemoglob in, Arterial 1.2 % [facility] Comment: Nonsmokers: 0.5-1.5% COHB Smokers: Variable, but usually less than 10% Toxic: 20-30% COHB Lethal: Greater than 60% COHB Methemoglobin, Arterial 0.3 <=1.5 % [facility] Na Whole Blood 140 135 - 145 mmol/L [facility] K Whole Blood 3.8 3.5 - 5.0 mmol/L [facility] Comment: Please note: Patients with WBC >100,000 may have falsely elevated Potassium levels. Contact the Clinical Chemistry Laboratory if there are any questions. ICa Whole Blood 1.12(L) 1.15 - 1.33 mmol/L [facility] Comment: Note: ??Total bilirubin higher than 20 mg/dL may lead to falsely low ionized calcium. CL Whole Blood 109(H) 98 - 107 mmol/L [facility] Gluc Whole Bld 152 65 - 199 mg/dL [facility] Comment:Diabetes: >=200 mg/d L plus symptoms. Lactate WB 1.5 0.5 - 2.2 mmol/L [facility] Blood 05/15/2022 2:06 PM EDT 05/15/2022 2:[address] Jamel Torre MD POINT OF CARE TEST O RDERABLES Performing Organization Address [facility]/ZIP Co de Phone Number [facility] [place] [address] * (ABNORMAL) Prothrombin Time (05/15/2022 12:30 PM EDT) Prothrombin Time 12.9(H) 9.4 - 12.5 sec [facility] International Normalization Ratio 1.1 [facility] Comment: An INR [...] DO HEMATOLOGY ORDERABLE S Performing Organization Address [facility]/ZIP Co de Phone Number [facility] [place] [address] * (ABNORMAL) APTT (05/15/2022 12:30 PM EDT) Partial Thromboplastin Time 76(H) 25 - 37 sec [facility] [...] Organization Address City/[facility]/ZIP Co de Phone Number [facility] [place] [address] * Gold Tube HOLD (05/15/2022 12:20 PM EDT) [facility] Gold Hold Sample in lab. [facility] Blood No Charge / Unknown 05/15/2022 12:20 PM EDT 05/15/2022 12:20 PM EDT Lc TRIPP CHEMISTRY ORDERABLES Performing Organization Address [facility]/ZIP Co de Phone Number [facility] [place] [address] * Type and Screen Validity (05/15/2022 12:00 PM EDT) T&S only valid at [facility] LABORATORY Comment:This Type and Screen result is only valid at the [facility] Blood 05/15/2022 12:0 0 PM EDT 05/15/2022 12:17 PM EDT Narrative Resulting Agency Comment Spec In Lab Lc TRIPP BLOOD BANK LAB ORDER NICK Performing Organization Address City/[facility]/ZIP Co de Phone Number [facility] [place] [address] * ABORH Recheck Status (05/15/2022 12:00 PM EDT) ABORH Recheck Order Order Placed [facility] ABORH Type Recheck Complete [facility] Blood 05/15/2022 12:0 0 PM EDT 05/15/2022 12:17 PM EDT Narrative Resulting Agency Comment Spec In Lab Lc TRIPP BLOOD BANK LAB ORDER NICK [facility] [place] [address] * CK (05/15/2022 12:00 PM EDT) Creatine Kinase 87 0 - 200 unit/L [facility] Blood Venous Draw / Unknown 05/15/2022 12:00 PM EDT 05/15/2022 12:19 PM EDT Narrative Resulting Agency Comment Spec In Lab Fito Summers MD CHEMISTRY ORDERABLES Performing Organization Address City/[facility]/ZIP Co de Phone Number [facility] [place] [address] * Antibody screen (05/15/2022 12:00 PM EDT) Ab Screen Interp Negative [facility] Expires at [id number] on: 05/18/2022 [facility] Blood 05/15/2022 12:0 0 PM EDT 05/15/2022 12:17 PM EDT Narrative Resulting Agency Comment Spec In Lab Lc TRIPP BLOOD BANK LAB ORDER NICK [facility] [place] [address] * ABO/Rh Typing (05/15/2022 12:00 PM EDT) ABORH Type O Pos [facility] Blood 05/15/2022 12:0 0 PM EDT 05/15/2022 12:17 PM EDT Narrative Resulting Agency Comment Spec In Lab Lc TRIPP BLOOD BANK LAB ORDER NICK [facility] [place] [address] * (ABNORMAL) Differential, Automated (05/15/2022 12:00 PM EDT) Neutrophil % 79.4 % [facility] Neutrophil Absolute 7.49(H) 1.70 - 6.10 x10(3)/[facility] LABORATORY Lymph % 11.3 % [facility] Lymphocytes Abs 1.1 0.9 - 3.2 x10(3)/[facility] LABORATORY Monocyte % 7.8 % [facility] Monocyte Abs 0.7 0.3 - 0.9 x10(3)/[facility] LABORATORY Eos % 0.6 % [facility] Eosinophils Abs 0.1 0.0 - 0.4 x10(3)/[facility] LABORATORY Basophil % 0.6 % [facility] Baso Absolute 0.1 0.0 - 0.1 x10(3)/[facility] LABORATORY Immature Gran % 0.30 % [facility] Comment: Immature granulocytes(IG's)percentage and absolute count will include metamyelocytes, myelocytes, and promyelocytes. Blood smears from CBCs yielding IG's will be scanned manually for concordance. If this scan disagrees with the automated IG or if promyelocytes are noted, a manual differential will be performed. Immature Gran Absolute 0.03 0.00 - 0.04 x10(3)/ L [facility] Blood 05/15/2022 12:0 0 PM EDT 05/15/2022 12:19 PM EDT Narrative Resulting Agency Comment Spec In Lab Lc TRIPP HEMATOLOGY ORDERABLE S [facility] [place] [address] * (ABNORMAL) Hemogram (05/15/2022 12:00 PM EDT) White Blood Cell 9.4 4.0 - 9.5 x10(3)/mc L [facility] Red Blood Cell 4.48(L) 4.58 - 5.54 x10(6)/mc L [facility] Hemoglobin 14.5 13.7 - 16.5 g/dL [facility] Hematocrit 42.4 40.5 - 48.5 % [facility] Mean Cell Volume 94.6(H) 82.9 - 93.1 fL [facility] Mean Cell Hemoglobin 32.4(H) 27.5 - 32.1 pg [facility] Mean Cell Hemoglobin Concentration 34.2 32.0 - 35.7 g/dL [facility] Platelet 209 145 - 357 x10(3)/mc L [facility] RDW Standard Deviation 45.9(H) 36.0 - 45.0 [facility]ORATORY RDW coefficient of variation 13.1 11.4 - 13.8 % [facility] Mean Platelet Volume 10.5 7.6 - 12.9 [facility] LABORATORY NRBC% auto 0.0 % [facility] NRBC Absolute 0.000 0.000 - 0.000 x10(3)/mc L [facility] Blood 05/15/2022 12:0 0 PM EDT 05/15/2022 12:19 PM EDT Narrative Resulting Agency Comment Spec In Lab Lc TRIPP HEMATOLOGY ORDERABLE S [facility] [place] [address] * (ABNORMAL) Basic Metabolic Panel (non-fasting) (05/15/2022 12:00 PM EDT) Glucose 203(H) 65 - 199 mg/dL [facility] Comment:Diabetes: >=200 mg/d L plus symptoms Blood Urea Nitrogen 16 10 - 20 mg/dL [facility] [...] questions. Chloride 107 98 - 107 mmol/L [facility] Carbon Dioxide 23 22 - 31 mmol/L [facility] Anion Gap 11 5 - 15 mmol/L [facility] Calcium 8.5 8.5 - 10.5 mg/dL [facility] Est Glomerular Filtration Rate 89 >=60 mL/min/1. 73 m?? [facility] Comment: This patient's [...] In Lab Jhonny Morales DO CHEMISTRY ORDERABLES [facility] [place] [address] documented in this encounter Visit Diagnoses Not [...] 0853 (Given - Provider: Barbie Joyce, RN)1750 ([facility] Hold - Provider: Admin Adt - Reason: Transfer to a Procedural area)1955 ([facility] Unhold - Provider: Admin Adt)2004 [...] 0852 (Given - Provider: Barbie Joyce, DION)1750 ([facility] Hold - Provider: Admin [...] Provider: Barbie Joyce, DION - Reason: NPO)1750 ([facility] Hold [...] MEDICAL CENTER Unhold - Provider: Admin Adt) alum-mag hydroxide-simeth [...] MEDICAL CENTER Unhold - Provider: Admin Adt) clopidogreL (Plavix) [...] Routine documented in this encounter Care Teams Parts Manager Relationship Specialty Start Date End Date Bobby Das MD [address] [place] [address] [place] [id number] PCP - General 10/02/10 documented as of this encounter
--- OUTSIDE RECORDS SUMMARY | 2024-09-30 12:11 | XMS_ITS | Encounter Summary ---
[place] [address] Care Team Providers Care Basket Operator Name Role Phone Bobby Das MD Primary Care Provider [phone] Reason for Referral * Diagnostic Test (Routine) - Closed Specialty Diagnoses / Procedures Referred By Contac t Referred To Contact Radiology Diagnoses Compression fracture of T9 vertebra, initial encounter Procedures IR Vertebroplasty Thoracic Single Level Alphonso Esquivel [facility] [place] [address] [place] [address] Referral ID Status Reason Start Date Expiration Date V isits Requested Visits Authorized [id number] Closed Specialty Service Requested 10/13/2020 04/13/2022 1 1 Reason for Visit * Diagnostic Test (Routine) - Closed Specialty Diagnoses / Procedures Referred By Contac t Referred To Contact Radiology Diagnoses Compression fracture of T9 vertebra, initial encounter Procedures IR Vertebroplasty Thoracic Single Level Alphonso Esquivel [facility] [place] [address] [facility] [place] [address] Referral ID Status Reason Start Date Expiration Date V isits Requested Visits Authorized [id number] Closed Specialty Service Requested 10/13/2020 04/13/2022 1 1 Encounter Details Date Type Department Care Team (Latest Contact Info) Description 10/25/2020 6:44 AM EST - 10/25/2020 11:59 PM EST Hospital [place] [address] Alphonso Esquivel, [facility] [place] [address] Compression fracture of T9 vertebra, initial encounter [...] - 10/25/2020 9:13 AM EST [facility] Discharge Instructions [...] is during regular office hours, please call [phone]. If it is after regular office hours, or on weekends or holidays, please call [phone] and ask to speak to the Customer Advisor ultrasonic solderer for Interventional Radiology. XXX You have received [...] : 1940 AGE: 80 y.o. Address: [address] [place] [address] (home) Mobile: No relevant phone numbers on file. Referring Provider: Alphonso Esquivel REASON FOR VISIT: Order Questions Answers Where will study be performed? [facility] Radiology [120] Is the patient on anticoagulant [...] was made and a 13ga introducer needle (Calendargod) was advanced through the right pedicle and to the ??T9 vertebral body during an intermittent fluoroscopic guidance. The Calendargod biopsy cannula was advanced through the introducer needle and the system was advanced further into the vertebral body. The core biopsy sample was removed and sent in formalin. 10 cc 1% lidocaine was used for local anesthesia of the left pedicle entry site at the skin and periosteum overlying the ??T9 level. A small skin incision was made and a 13ga introducer needle (Calendargod) was advanced through the left pedicle and [...] at the skin and periosteum overlying the [id number]. A small skin incision was made and a 13ga introducer needle (Calendargod)was advanced through the right pedicle and to the T9 vertebral body duringan intermittent fluoroscopic guidance. The Calendargod biopsy cannula wasadvanced through the introducer needle and the system was advanced further intothe vertebral body. The core biopsy sample was removed and sent in formalin. 10 cc 1% lidocaine was used for local anesthesia of the left pedicle entrysite at the skin and periosteum overlying the T9 level. A small skin incisionwas made and a 13ga introducer needle (Calendargod) was advanced through theleft pedicle and to [...] contact the number below. Alphonso Esquivel DO [facility] IR ORDERABLES * Surgical Pathology Report (10/25/2020 8:26 AM EST) Final Diagnosis [id number] ? Location: [facility] The signing pathologist has (i) examined the relevant preparation(s) for the specimen(s) and (ii) rendered or confirmed the diagnosis(es). . ?Surgical Pathology DIAGNOSIS A - T-9, biopsy: ?- Lamellar and woven bone with intertrabecular mixture changes and mild ? lymphoplasmacytic infiltrate, see discussion Electronically signed by: ??Galo Enamorado MD Verified: ??10/27/2020 ?Dermatopathologist , Bone & Soft Tissue Pathologist Performed at: ??-[facility], [place], [place] DISCUSSION I see no neoplastic process [...] labeled A1. ??kevin 10/27/2020 2:23 PM EST [facility] BONE STRUCTURE / Unknown 10/25/2020 8:26 AM EST 10/25/2020 8:26 AM EST Alphonso Esquivel DO PATHOLOGY/CYTOLOGY O RADHA Performing Organization Address [facility] Co de Phone Number [facility] [place] [address] * Specimen to Pathology (10/25/2020 8:26 AM EST) AP Specimen 10/25/2020 8:26 AM EST 10/25/2020 8:26 AM EST Narrative [facility] - 10/25/2020 8:26 AM EST Specimen requisition ordered. ??Separate Pathology report to follow Alphonso Esquivel DO PATHOLOGY/CYTOLOGY O RADHA Performing Organization Address [facility] Co de Phone Number [facility] [place] [address] documented in this encounter Visit Diagnoses Diagnosis [...] mL/hr documented in this encounter Care Teams Basket Operator Relationship Specialty Start Date End Date Bobby Das MD [address] [place] [address] [place] [phone] PCP - General 10/02/10 documented as of this encounter
--- OUTSIDE RECORDS SUMMARY | 2024-09-30 12:11 | XMS_ITS | Encounter Summary ---
[place] [address] Care Team Providers Care Position Classification Manager Name Role Phone Bobby Das MD Primary Care Provider [phone] Reason for Visit * Reason Comments Left Leg Pain * Auth/Cert Specialty Diagnoses / Procedures Referred By Colby t Referred To Contact Diagnoses Limb ischemia LLE thrombus Fito Summers MD [facility] [place] [address] [facility] Referral ID Status Reason Start Date Expiration Date Visits Re quested Visits Authorized [id number] 1 1 Encounter Details Date Type Department Care Team (Late st Contact Info) Description 05/15/2022 12:41 PM EDT - 05/15/2022 4:08 PM EDT Surgery [place] [address] Fito Summers MD [facility] [address] EMBOLECTOMY OR THROMBECTOMY, FEMOROPOPLITEAL, AORTOILIAC ARTERY BY [...] onset Afib who presents in transfer from [facility] with acute limb ischemia of the [...] service with ALI and emergently went to [facility] for L CHEMICAL SPRAYER transverse arteriotomy and primary repair, thromboembolectomy of L SFA/PFA/CHEMICAL SPRAYER, reperfusion venous drainage for 250 cc, and [...] Discharge Condition: Good Discharge to: Home with [facility] [address] [address] Future Appointments and Orders Future Appointments and Orders Future Appointments Provider Department Dept Phone 05/23/2022 10:30 AM Loretta Cohen MD Dermatology at [address] Arrive at: Development Coach [address] [place] [address] 06/07/2022 1:30 PM Gail Rae APRN Vascular Surgery at [facility] Arrive at: Development Coach Area [phone] 06/13/2022 7:30 AM Edson Lagos [place] Vascular Lab at [facility] Arrive at: Development Coach Area [phone] 06/13/2022 8:00 AM Fito Summers MD Vascular Surgery at [facility] Arrive at: Development Coach Area [phone] 06/13/2022 10:00 AM Alan Reid MD Cardiology at [facility] Arrive at: Development Coach Area [phone] Future Orders Complete By Expires Ziopatch 48 Hrs-15 Days [VLQ0076 CPT(R)] 05/21/2022 11/20/2022 Process Instructions: Scheduling Instructions: Comments: Questions: Does the patient have a pacemaker? If yes provide HI/LO settings: Apply for 7 or 14 days?: 7 Where will study be performed?: [facility] Clinics JOSSELYN, legs, multiple levels [VAS8 Custom] 06/21/2022 (Approximate) 12/21/2022 Process Instructions: There is no in-house vascular lab technologist available on weeknights (5pm-8am), weekends, or holidays. IF THIS IS A REQUEST FOR AN EMERGENT STUDY DURING THOSE HOURS, please have the senior provider responsible for the patient page the Vascular Surgery Fellow/Senior Resident radiation physicist to discuss options. Scheduling Instructions: Questions: Indication for study/signs & symptoms: ALI s/p L fem cutdown with thromboembolectomy Question to be answered: Perfusion to feet? Please check toe pressure Preferred location?: [facility] Clinics Referral to [...] Koko Youguson for admission to Home Health. [address] [place] [phone] (home) Date of : 1940 Inpatient DOCUMENTATION FOR VNA SERVICES (INCLUDING THOSE PATIENTS WITH MEDICARE COVERAGE REQUIRING HOME VNA SERVICES AND/OR HOSPICE SERVICES) PATIENT'S LOCATION: Koko Bah [address] [facility] [phone] (home) Cell: No relevant phone numbers on file. Asset Accountant's Name: Koko In discussion with the attending physician, it is certified that this patient is under their care and that they, or a Nurse Practitioner,Clinical Nurse specialist or Physician Medicine Worker who is working directly with them, [...] for managing ADL's. HOME HEALTH CARE AGENCY: [facility]. [address] [place] [address] Start of care: Within 24 to 48 [...] from this patient's PCP: Bobby Das MD [address] [place] [address] / [place] [address] All VNA agencies which cover the area [...] For any problems or questions please call [phone] For issues on weeknights after 5pm and weekends please call [phone] and ask for the Vascular Fellow radiation physicist. JOSEE Santiago Vascular Surgery 05/21/2022 documented in [...] For any problems or questions please call [phone] For issues on weeknights after 5pm and weekends please call [phone] and ask for the Vascular Fellow radiation physicist. documented in this encounter Medications at Time of Discharge Medication Sig Dispensed Refills Start Date End Date fluticasone propionate (FLONASE) 50 mcg/actuation Vickery, Suspension 1 spray by Each Nare route [...] onset Afib who presents in transfer from [facility] with acute limb ischemia of the [...] status, full code. JOSEE Santiago 05/21/2022 Pager: [phone] * Brannon Isaacs - 05/21/2022 10:35 AM [...] plan as stated. Time IN / OUT: 9802-1167 Total Minutes, Physical Therapy: 25 Billing Code: 2 BOSTON Isaacs DPT Pager: [phone] Physical Therapy Inpatient Rehabilitation Department * [place] [...] 04/17/2021 in Pain and Spine Center at [facility] Weight 79.8 kg [...] plan of care per Dr. Mcnamara (manager medical device). 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 [...] ED to Hosp-Admission (Current) from 05/15/[address] [place] [address] Office Visit from 04/17/2021 in Pain and Spine Center at [facility] Weight 79.8 kg [...] plan of care per Dr. Mcnamara (manager medical device). Please refer to her note above for [...] a mitral repair in 2000 (not at [facility])with no CAD at that [...] AF and the first documented HR at [facility] was 125 bpm [...] onset Afib who presents in transfer from [facility] with acute limb ischemia of the [...] management following Dottie Hill APRN 05/20/2022 Pager: [phone] * Laney Atkins RN - 05/20/2022 1:14 [...] EDT Pt. Transferred to [facility]. RN accompanied patient to floor and handed off to [facility] RN * Dottie Hill APRN - 05/19/2022 10:02 AM EDT Vascular Surgery Progress Note Koko Bah is a 81 y.o. male with w new onset Afib who presents in transfer from [facility] with acute limb ischemia of the [...] management following Dottie Hill APRN 05/19/2022 Pager: [phone] * Emily Sauceda RN - 05/19/2022 6:28 AM EDT OUTCOME EVALUATION NOTE: OUTCOME SUMMARY: Patient AOx4, VSS on RA. Afib on tele. HR controlled w/ PRN metop, given x2. Denies CP, SOB, n/v. See flowsheets for NVC. Dressings to LLE CDI, prevena WV to groin intact. Voiding to urinal. 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 LBM REAL ESTATE LOAN PROCESSOR.Up to chair this AM with nursing staff. Worked with PT, tolerated well. Diet changed to regular at 1800. Plan is for cardiac cath on Friday. PLAN MOVING FORWARD: Bleeding precautions Pain management neurovascular checks PT/OT chemical laboratory assistant INDIVIDUALIZED FALL PREVENTION INTERVENTIONS: [...] onset Afib who presents in transfer from [facility] with acute limb ischemia of the [...] mL Intravenous BID ??? PHENobarbitaL 0.12 mg/kg/dose ([place]) Oral BID ??? thiamine 100 mg Oral [...] management following Dottie Hill APRN 05/18/2022 Pager: [phone] * Brannon Isaacs - 05/18/2022 10:00 AM [...] IR Biopsy Spine 07/20/2019 Bobby Marshall MD [facility] INTERVENTIONL RAD ??? IR VERTEBROPLASTY LUMBAR MULTIPLE LEVELS 07/20/2019 IR Vertebroplasty Lumbar Multiple Levels 07/20/2019 Bobby Marshall MD [facility] INTERVENTIONL RAD ??? IR VERTEBROPLASTY THORACIC SINGLE LEVEL 10/25/2020 IR Vertebroplasty Thoracic Single Level 10/25/2020 Matt Chisholm MD [facility] INTERVENTIONL RAD ??? PRO EMBLC/THRMBC FEMORAL POPLITEAL AORTO-ILIAC ARTERY Left 05/15/2022 EMBOLECTOMY OR THROMBECTOMY, FEMOROPOPLITEAL, AORTOILIAC ARTERY BY LEG INCISION (WRVU 19.48) performed by Fito Summers MD at [facility] MAIN OR Social History: Pt lives with [...] outlinedin this evaluation. Time IN / OUT: 9446-3164 Total Minutes, Physical Therapy: 30 Billing Code: Basilio Brannon Isaacs, PT Pager: [phone] Physical Therapy Inpatient Rehabilitation Department * Emily Sauceda RN - 05/18/2022 4:34 AM EDT OUTCOME EVALUATION NOTE: OUTCOME SUMMARY: Patient AOx4, VSS on 2LNC. Afib on tele. HR above 120, MD aware, PRN IV metop given x1, HR returnedto 90's-low 100's. Denies CP, SOB, n/v. See flowsheets for NVC. Dressings to LLE CDI, prevena WV togroin intact. Voiding to urinal. LBM REAL ESTATE LOAN PROCESSOR. Heparin gtt therapeutic. Pain controlled. Patient sleeping [...] adequately without difficulty to bedside urinal. LBM REAL ESTATE LOAN PROCESSOR. Patient not OOB this shift. Currently NPO awaiting procedure in laboratory animal care veterinarian. PLAN MOVING FORWARD: Bleeding precautions Pain management neurovascular checks PT/OT NPO for laboratory animal care veterinarian INDIVIDUALIZED FALL PREVENTION INTERVENTIONS: Patient-specific fall risk [...] the Emergency Department as a transfer from [facility] with left lower extremity limb ischemia. He went to [facility] and was started on heparin and transferred to [facility] for evaluation by vascular surgery [...] will will be going to the laboratory animal care veterinarian for evaluation. Will defer PT eval at present but will see as ordered post cardiac catheritizaton. Social Hx:Pt lives with his Ursula in [place], [place] in a 2 level home in [...] WBAT LLE LISBET MORELOS PT Pager # [phone] In-Pt Rehab Medicine * Dottie Hill APRN - 05/17/2022 7:42 AM EDT Vascular Surgery Progress Note Koko Bah is a 81 y.o. male with w new onset Afib who presents in transfer from [facility] with acute limb ischemia of the [...] mL Intravenous BID ??? PHENobarbitaL 0.24 mg/kg/dose ([place]) Oral BID Followed by ??? [START ON 05/18/2022] PHENobarbitaL 0.12 mg/kg/dose ([place]) Oral BID ??? thiamine 100 mg Oral [...] management following Dottie Hill APRN 05/17/2022 Pager: [phone] * Sary Dos Santos RN - 05/17/2022 [...] onset Afib who presents in transfer from [facility] with acute limb ischemia of the [...] mL Intravenous BID ??? PHENobarbitaL 0.48 mg/kg/dose ([place]) Oral BID Followed by ??? [START ON 05/17/2022] PHENobarbitaL 0.24 mg/kg/dose ([place]) Oral BID Followed by ??? [START ON 05/18/2022] PHENobarbitaL 0.12 mg/kg/dose ([place]) Oral BID ??? thiamine 100 mg Oral [...] management following Edward Rodríguez MD 05/16/2022 Pager: [phone] * Sary Dos Santos RN - 05/16/2022 [...] met 2129 Hand off to DION Ramirez [facility] documented in this encounter H&P Notes * [...] onset Afib who presents in transfer from [facility] with acute limb ischemia of the LLE. The patient had sudden pain starting at 630 this morning he presented ARR H where he was [...] IR Biopsy Spine 07/20/2019 Bobby Marshall MD [facility] INTERVENTIONL RAD ??? IR VERTEBROPLASTY LUMBAR MULTIPLE LEVELS 07/20/2019 IR Vertebroplasty Lumbar Multiple Levels 07/20/2019 Bobby Marshall MD [facility] INTERVENTIONL RAD ??? IR VERTEBROPLASTY THORACIC SINGLE LEVEL 10/25/2020 IR Vertebroplasty Thoracic Single Level 10/25/2020 Matt Chisholm MD [facility] INTERVENTIONL RAD Social Hx: Social History Socioeconomic [...] Refill ??? fluticasone propionate (FLONASE) 50 mcg/actuation Vickery, Suspension as needed. ??? fluorouraciL (EFUDEX) 5 [...] and consented. Tim Chicas MD 05/15/2022 Pager: [phone] documented in this encounter ED Notes * Lc Harris PA - 05/15/2022 1:20 PM EDT ED Provider Note HPI: Koko Bah is a 81 y.o. male with history of atrial fibrillation not on anticoagulation, andGI bleeding who presents to the Emergency Department as a transfer from [facility] with left lower extremity limb ischemia. Patient says that the symptoms started roughly 630 this morning when he developed severe pain in his left lower extremity. He went to [facility] and was started on heparin and transferred to [facility] for evaluation by vascular surgery. [...] lower extremity earlier today and went to [facility] where it was determined that he had ischemia of the left lower extremity. Vascular surgery [facility] was contacted and he was transferred [...] orders before pt. Arrival. Pt. Arrived at [facility] by EMS at [...] in an outpatient cardiac rehabilitation program at [facility] was discussed. Patient agrees to a referral to this program. Timing will depend on his recovery from Vascular surgery. He is going home w/VNA PT. I gave him the brochure for the program at [facility] for future reference. * Care Management Discharge [...] Contact information for follow-up Home Health & H[facility]ice[address] [facility] [address] Transportation: family or friend will provide Functional [...] Type: *No Product type* / Secondary Insurance: [employer] Prescription Coverage: Yes This plan was formulated with input from patient and team. All are in agreement with plan. GEOFFRYE RS has communicated with Oli - for initial IMM. Shawn (Paulo López RN RN/CM - Cellphone: [phone] Pager: [phone] Covering Service RN/CM * Plan of Care [...] Type: *No Product type* / Secondary Insurance: [facility] Last Physical Therapy Recommendation: home with home health, home with supervision with None Last Occupational Therapy Recommendation: with Plan for discharge is: Home w/ Services Outpatient Agency/Support Group Needs: None Home Health Services: Registered Nurse, Physical Therapy, Occupational Therapy Agency Referrals: I have met with the patient to: ?? discuss discharge planning needs. ?? provide the [facility], Office of Care Management letter from the Eye Dropper Assembler pertaining to rehabreferrals. ?? provide a letter describing our affiliations within the [facility] and educate about their right to choose where referrals are sent. ?? provide a list of Home Health Agencies / Durable Medical Equipment vendors which serve their preferred geographic area. ?? provided patient with [facility] Star Quality Rating handout. They have requested referrals to: [facility] [address] [place] [id number] Note routed to a Industrial Maintenance Tech who will communicate referrals to facilities and provide any required information. Transportation: family or friend will provide Barriers to discharge: None Plan going forward: Patient is going for a cardiac cath today and plan will come from there. Patient was recently seen by PT and they recommend VNA at time of discharge. [facility] was routed and pended at this time. Care Management will continue to follow and assist with discharge planning and coordination of care as indicated. Anticipated Date of Discharge: 05/21/2022 Nataly RICHMOND RN Phone: [phone] Pager: [phone] * Plan of Care - Laney Atkins [...] [facility] [place] [address] INPATIENT CARDIOLOGY CONSULT NOTE Date of Consultation: 05/17/2022 Admit Date: 05/15/2022 Hospital Day 2 days Reason for Consult: New afib Active Problems: Active Hospital Problems Diagnosis Limb ischemia Resolved Hospital Problems No resolved problems to display. HPI: Koko Bah is a 81 y.o. male with a PMHx significant for MVP (s/p MV repair 2000), tobacco use, HLD, who presented to [facility] from OSH on 05/15 with acute limb ischemia of LLE and was found to bein atrial fibrillation. Patient had sudden onset LLE pain on 05/15 and presented to [facility], where he was started on heparin and transferred to [facility]. Upon arrival to [facility], patient was in [...] IR Biopsy Spine 07/20/2019 Bobby Marshall MD [facility] INTERVENTIONL RAD IR VERTEBROPLASTY LUMBAR MULTIPLE LEVELS 07/20/2019 IR Vertebroplasty Lumbar Multiple Levels 07/20/2019 Bobby Marshall MD [facility] INTERVENTIONL RAD IR VERTEBROPLASTY THORACIC SINGLE LEVEL 10/25/2020 IR Vertebroplasty Thoracic Single Level 10/25/2020 Matt Chisholm MD [facility] INTERVENTIONL RAD PRO EMBLC/THRMBC FEMORAL POPLITEAL AORTO-ILIAC ARTERY Left 05/15/2022 EMBOLECTOMY OR THROMBECTOMY, FEMOROPOPLITEAL, AORTOILIAC ARTERY BY LEG INCISION (WRVU 19.48) performed by Fito Summers MD at [facility] MAIN OR Allergies Allergen Reactions Aspirin Other (See Comments) GI bleed Out-Patient Medications: Medications Prior to Admission Medication Sig Dispense Refill Last Dose fluorouraciL (EFUDEX) 5 % Cream daily. CRESTOR 40 mg Tablet Take 40 mg by mouth daily. fluticasone propionate (FLONASE) 50 mcg/actuation Vickery, Suspension as needed. ascorbic acid, vitamin C, [...] 5 mL Intravenous BID PHENobarbitaL 0.24 mg/kg/dose ([place]) Oral BID Followed by [START ON 05/18/2022] PHENobarbitaL 0.12 mg/kg/dose ([place]) Oral BID thiamine 100 mg Oral Daily [...] 04/17/2021 in Pain and Spine Center at [facility] Weight 79.8 kg [...] continue to follow Anne-Marie Larson MD Pager [phone] Clinic: [phone] 05/17/22 6:22 PM * Initial Assessments - [...] spouse would be surrogate decision maker per [place] surrogate decision making law. (Only good for 180 days) Any patient receiving care at [facility] must abide by [place] law. The hierarchy [...] The agent with financial power of attorney recruiter or a conservator appointed in accordance with [...] raised toilet seat Home Address confirmed as: [address] [place] [address] Social & Family Supports: All names listed below confirmed with patient as Incorrect. Will notify oli to correct. Wifes address is same as and phone is [phone]. Extended Emergency Contact Information Primary Emergency Contact: Ursula Bah Address: [address] [place] [address] [facility] Relation: Spouse Current Care Provided by: self Provides Primary Care For: no one Caregiver if needed: spouse, child(junadi), adult Quality of Family relationships: helpful, involved, [...] Type: *No Product type* / Secondary Insurance: [facility] Prescription Coverage: Yes Preferred Pharmacy: [id number] - [place], [place] - [address] [facility] [address] [facility] [id number] [facility] - [place], [place] - [address] [facility] [address] [place] [address] Status: Patient is a : unable to assess Primary Care Provider: Bobby Das MD [phone] Patient/Caregiver Goals of Treatment: to walk again [...] of care planning. Ifrah Bell RN BSN Feeder AssociateOil Truck Driver of Care Management Pager [phone] * Brief Op Note - Erin Garza MD - 05/15/2022 5:04 PM EDT Brief Operative Note Patient Name: Koko Bah : [id number] MR#: [id number] Case Date: 05/15/2022 Surgeon: Surgeon(s) and Role: [...] Garza MD - 05/15/2022 2:08 PM EDT [facility] Operative Note Patient Name: Koko Bah : [id number] MR#: [id number] Case Date: 05/15/2022 Surgeon: Surgeon(s) and Role: [...] PM EDT Emblc/Thrmbc Femoral Popliteal Aorto-Iliac Artery (06747) 05/15/2022 1:20 PM EDT Acute Limb Ischemia [...] Text Report Department: Vascular Surgery Lab Patient: [id number] (KOKO BAH) CPT: 75239 Referring Physician: FITO SUMMERS ?? Phone: Indications: s/p L CHEMICAL SPRAYER endart. Diabetes mellitus: no Findings: Right ?Pressure [...] 12:35 PM EDT) UF Heparin 0.42 IU/mL [facility] Comment: Heparin (anti-Xa) levels should be [...] MD HEMATOLOGY ORDERABLE S [facility] [place] [address] * Differential, Automated (05/21/2022 6:15 AM EDT) Neutrophil % 58.8 % [facility] Neutrophil Absolute 3.97 1.70 - 6.10 x10(3)/[facility] Lymph % 25.2 % [facility] Lymphocytes Abs 1.7 0.9 - 3.2 x10(3)/[facility] Monocyte % 12.9 % [facility] Monocyte Abs 0.9 0.3 - 0.9 x10(3)/[facility] Eos % 2.1 % [facility] Eosinophils Abs 0.1 0.0 - 0.4 x10(3)/[facility] Basophil % 0.4 % [facility] Baso Absolute 0.0 0.0 - 0.1 x10(3)/[facility] Immature Gran % 0.60 % [facility] Comment: Immature granulocytes(IG's)percentage and absolute count will include metamyelocytes, myelocytes, and promyelocytes. Blood smears from CBCs yielding IG's will be scanned manually for concordance. If this scan disagrees with the automated IG or if promyelocytes are noted, a manual differential will be performed. Immature Gran Absolute 0.04 0.00 - 0.04 x10(3)/[facility] Blood 05/21/2022 6:15 AM EDT 05/21/2022 6:38 AM EDT Narrative Resulting Agency Comment Spec In Lab Edward Rodríguez MD HEMATOLOGY ORDER NICK [facility] [place] [address] * (ABNORMAL) Hemogram (05/21/2022 6:15 AM EDT) White Blood Cell 6.8 4.0 - 9.5 x10(3)/mc L [facility] Red Blood Cell 3.59(L) 4.58 - 5.54 x10(6)/mc L [facility] Hemoglobin 11.8(L) 13.7 - 16.5 g/dL [facility] Hematocrit 34.5(L) 40.5 - 48.5 % [facility] Mean Cell Volume 96.1(H) 82.9 - 93.1 fL [facility] Mean Cell Hemoglobin 32.9(H) 27.5 - 32.1 pg [facility] Mean Cell Hemoglobin Concentration 34.2 32.0 - 35.7 g/dL [facility] Platelet 198 145 - 357 x10(3)/mc L [facility] RDW Standard Deviation 44.9 36.0 - 45.0 [facility] RDW coefficient of variation 12.6 11.4 - 13.8 % [facility] Mean Platelet Volume 10.0 7.6 - 12.9 [facility] NRBC% auto 0.3 % [facility] NRBC Absolute 0.020(H) 0.000 - 0.000 x10(3)/mc L [facility] Blood 05/21/2022 6:15 AM EDT 05/21/2022 6:38 AM EDT Narrative Resulting Agency Comment Spec In Lab Edward Rodríguez MD HEMATOLOGY ORDER NICK [facility] [place] [address] * EKG 12 Lead (05/20/2022 7:04 PM EDT) Ventricular rate 101 BPM MUSE SYSTEM QRS Duration 116 ms MUSE SYSTEM Q-T Interval 378 ms MUSE SYSTEM QTC Calculated (Bezet) 490 ms MUSE SYSTEM Calculated R Sarona -53 degrees MUSE SYSTEM Calculated T Sarona 101 degrees MUSE SYSTEM INTERPRETATION Atrial fibrillation [...] ? Procedure Date: 05/20/2022 ? A #: [id number] ? Primary Physician: Malathi, Abundio S ? Case #: [id number] ? File Name: [id number] ? Catheterization Order Number: [id number] ? [facility] ? Final Report [place], [place] ? Patient Name: ? Koko J. Bah ? ID#: ?[id number] ? : ?1940 ? Procedure Date: ? [...] was Urgent. The indication for ?the laboratory animal care veterinarian visit is cardiomyopathy. Chest pain symptom assessment [...] a 3.5 Fr [place] [facility] [address] ??20 Mhz. ??Imaging ?was successful. ??Image [...] ? A premounted 2.75 x 30 mm Patagonia Barton (AMPARO) was deployed ? with a maximum [...] may require ?modification of this regimen. Consult [facility] Interventional [...] Koko Bah Procedure Date: 05/20/2022 A #: [id number] Primary Physician: Abundio Servin Case #: File Name: [id number] Catheterization Order Number: [id number] [facility] FinalReport [place], [place] Patient Name: Koko Bah ID#:[id number] :1940 Procedure Date: May 20, 2022 Case [...] diagnostic procedure was Urgent. The indicationfor the laboratory animal care veterinarian visit is cardiomyopathy. Chest pain symptom assessmentwas: [...] 3.5 guiding catheter and a 3.5 Fr [facility] [address] 20 Mhz.Imaging was successful. Image quality [...] The lesion was predilated with a 2.00mm [id number] MM balloon with a maximum inflation pressure of 12atmospheres. A premounted 2.75 x 30 mm Rudy Barton (AMPARO) wasdeployed with a maximum inflation pressure [...] situation mayrequire modification of this regimen. Consult [facility] Interventional Cardiologyfor questions. The [...] * POCT Glucose (05/20/2022 5:42 PM EDT) [facility] Glucose, POC 123 65 - 199 mg/dL [facility] Comment: Supplemental ranges: <140 mg/dL before meals <180 mg/dL all other times of the day Blood 05/20/2022 5:42 PM EDT 05/20/2022 5:42 PM EDT Fito Summers MD POINT OF CARE TEST O RDERABLES [facility] [place] [address] * (ABNORMAL) BMP w/fasting Glucose (05/20/2022 10:50 [...] of Diabetes Mellitus, Position Statement from the [place] [employer]. ??Diabetes Care, Volume 33, Supplement [...] Summers MD CHEMISTRY ORDERABLES Performing Organization Address [facility] Co de Phone Number [facility] [place] [address] * Heparin (unfractionated) Level (05/20/2022 5:02 AM EDT) UF Heparin 0.57 IU/mL [facility] Comment: Heparin (anti-Xa) levels should be [...] MD HEMATOLOGY ORDERABLE S Performing Organization Address City/[facility]/ZIP Co de Phone Number [facility] [place] [address] * (ABNORMAL) Differential, Automated (05/20/2022 5:02 AM EDT) Neutrophil % 58.1 % [facility] Neutrophil Absolute 4.52 1.70 - 6.10 x10(3)/ L [facility] Lymph % 24.1 % [facility] Lymphocytes Abs 1.9 0.9 - 3.2 x10(3)/ L [facility] Monocyte % 13.8 % [facility] Monocyte Abs 1.1(H) 0.3 - 0.9 x10(3)/ L [facility] Eos % 2.6 % [facility] Eosinophils Abs 0.2 0.0 - 0.4 x10(3)/[facility] Basophil % 0.8 % [facility] Baso Absolute 0.1 0.0 - 0.1 x10(3)/ L [facility] Immature Gran % 0.60 % [facility] [...] MD HEMATOLOGY ORDER NICK [facility] [place] [address] * (ABNORMAL) Hemogram (05/20/2022 5:02 AM EDT) [facility] White Blood Cell 7.8 4.0 - 9.5 x10(3)/ L [facility]PITAL [facility] Platelet 181 145 - 357 x10(3)/[facility] RDW Standard Deviation 46.4(H) 36.0 - 45.0 [facility] RDW coefficient of variation 13.0 11.4 - 13.8 % [facility] Mean Platelet Volume 10.4 7.6 - 12.9 fL [facility] NRBC% auto 0.0 % [facility] NRBC Absolute 0.000 0.000 - 0.000 x10(3)/[facility] Blood 05/20/2022 5:02 AM EDT 05/20/2022 5:19 AM EDT Narrative Resulting Agency Comment Spec In Lab Edward Rodríguez MD HEMATOLOGY ORDER NICK [facility] [place] [address] * Heparin (unfractionated) Level (05/19/2022 3:26 AM EDT) [facility] UF Heparin 0.59 IU/mL [facility] Comment: Heparin (anti-Xa) levels should be [...] MD HEMATOLOGY ORDERABLE S [facility] [place] [address] * (ABNORMAL) Differential, Automated (05/19/2022 3:26 AM EDT) Neutrophil % 62.1 % [facility] Neutrophil Absolute 4.59 1.70 - 6.10 x10(3)/mc L [facility] Lymph % 22.1 % [facility] Lymphocytes Abs 1.6 0.9 - 3.2 x10(3)/mc L [facility] Monocyte % 13.5 % [facility] Monocyte Abs 1.0(H) 0.3 - 0.9 x10(3)/mc L [facility] Eos % 1.3 % [facility] Eosinophils Abs 0.1 0.0 - 0.4 x10(3)/mc L [facility] Basophil % 0.5 % [facility] Baso Absolute 0.0 0.0 - 0.1 [...] Absolute 0.04 0.00 - 0.04 x10(3)/mc L [facility] Blood 05/19/2022 3:26 AM EDT 05/19/2022 3:59 AM EDT Narrative Resulting Agency Comment Spec In Lab Edward Rodríguez MD HEMATOLOGY ORDER NICK [facility] [place] [address] * (ABNORMAL) Hemogram (05/19/2022 3:26 AM EDT) White Blood Cell 7.4 4.0 - 9.5 x10(3)/ L [facility] Red Blood Cell 3.74(L) 4.58 - 5.54 x10(6)/mc L [facility] Hemoglobin 12.1(L) 13.7 - 16.5 g/dL [facility] Hematocrit 36.4(L) 40.5 - 48.5 % [facility] Mean Cell Volume 97.3(H) 82.9 - 93.1 fL [facility] Mean Cell Hemoglobin 32.4(H) 27.5 - 32.1 pg [facility] Mean Cell Hemoglobin Concentration 33.2 32.0 - 35.7 g/dL [facility] Platelet 168 145 - 357 x10(3)/mc L [facility] RDW Standard Deviation 46.9(H) 36.0 - 45.0 fL [facility] RDW coefficient of variation 13.0 11.4 - 13.8 % [facility] Mean Platelet Volume 10.5 7.6 - 12.9 fL [facility] NRBC% auto 0.0 % [facility] NRBC Absolute 0.000 0.000 - 0.000 x10(3)/mc L [facility] Blood 05/19/2022 3:26 AM EDT 05/19/2022 3:59 AM EDT Narrative Resulting Agency Comment Spec In Lab Edward Rodríguez MD HEMATOLOGY ORDER NICK Performing Organization Address [facility] Co de Phone Number [facility] [place] [address] * TSH (05/18/2022 8:00 PM EDT) Pathologist [facility] Thyroid Stimulating Hormone 2.27 0.27 - 4.20 mcIU/mL [facility] Comment: Reference Interval (mcIU/mL): Females: ??First Trimester: 0.23-3.88 ??Second Trimester: 0.22-3.90 ??Third Trimester: 0.44-4.66 Blood 05/18/2022 8:00 PM EDT 05/18/2022 8:06 PM EDT Narrative Resulting Agency Comment Spec In Lab Fito Summers MD CHEMISTRY ORDERABLES Performing Organization Address [facility] de Phone Number [facility] [place] [address] * (ABNORMAL) Differential, Automated (05/18/2022 3:34 AM EDT) Neutrophil % 67.2 % [facility] Neutrophil Absolute 5.89 1.70 - 6.10 x10(3)/mc L [facility] Lymph % 17.1 % [facility] Lymphocytes Abs 1.5 0.9 - 3.2 x10(3)/mc L [facility] Monocyte % 13.6 % [facility] Monocyte Abs 1.2(H) 0.3 - 0.9 x10(3)/mc L [facility] Eos % 1.0 % [facility] Eosinophils Abs 0.1 0.0 - 0.4 x10(3)/[facility] Basophil % 0.6 % [facility] Baso Absolute 0.0 0.0 - 0.1 x10(3)/[facility] Immature Gran % 0.50 % [facility] Comment: Immature granulocytes(IG's)percentage and absolute count will include metamyelocytes, myelocytes, and promyelocytes. Blood smears from CBCs yielding IG's will be scanned manually for concordance. If this scan disagrees with the automated IG or if promyelocytes are noted, a manual differential will be performed. Immature Gran Absolute 0.04 0.00 - 0.04 x10(3)/[facility] Blood 05/18/2022 3:34 AM EDT 05/18/2022 3:48 AM EDT Narrative Resulting Agency Comment Spec In Lab Edward Rodríguez MD HEMATOLOGY ORDER NICK Performing Organization Address City/State/[facility] Co de Phone Number [facility] [place] [address] * (ABNORMAL) Hemogram (05/18/2022 3:34 AM EDT) White Blood Cell 8.8 4.0 - 9.5 x10(3)/[facility] Red Blood Cell 3.45(L) 4.58 - 5.54 x10(6)/[facility] Hemoglobin 11.2(L) 13.7 - 16.5 g/dL [facility] Hematocrit 33.0(L) 40.5 - 48.5 % [facility] Mean Cell Volume 95.7(H) 82.9 - 93.1 fL [facility] Mean Cell Hemoglobin 32.5(H) 27.5 - 32.1 pg [facility] Mean Cell Hemoglobin Concentration 33.9 32.0 - 35.7 g/dL [facility] Platelet 130(L) 145 - 357 x10(3)/[facility] RDW Standard Deviation 46.2(H) 36.0 - 45.0 fL [facility] RDW coefficient of variation 13.2 11.4 - 13.8 % [facility] Mean Platelet Volume 10.8 7.6 - 12.9 fL [facility] NRBC% auto 0.0 % [facility] NRBC Absolute 0.000 0.000 - 0.000 x10(3)/mc L [facility] Blood 05/18/2022 3:34 AM EDT 05/18/2022 3:48 AM EDT Narrative Resulting Agency Comment Spec In Lab Edward Rodríguez MD HEMATOLOGY ORDER NICK Performing Organization Address [facility] [place] [address] * Heparin (unfractionated) Level (05/18/2022 3:34 AM EDT) UF Heparin 0.59 IU/mL [facility] Comment: Heparin (anti-Xa) levels should be [...] MD HEMATOLOGY ORDERABLE S Performing Organization Address City/[facility]/ZIP Co de Phone Number [facility] [place] [address] * Magnesium (05/17/2022 3:33 AM EDT) Magnesium 0.76 0.69 - 1.07 mmol/L [facility] Blood Venous Draw / Unknown 05/17/2022 3:33 AM EDT 05/17/2022 4:05 AM EDT Narrative Resulting Agency Comment Spec In Lab Dottie Hill APRN CHEMISTRY ORDERABL ES [facility] [place] [address] * (ABNORMAL) Basic Metabolic Panel (non-fasting) (05/17/2022 [...] Summers MD CHEMISTRY ORDERABLES [facility] [place] [address] * (ABNORMAL) Differential, Automated (05/17/2022 3:33 AM EDT) Neutrophil % 65.5 % [facility] Neutrophil Absolute 6.84(H) 1.70 - 6.10 x10(3)/mc L [facility] Lymph % 19.7 % [facility] Lymphocytes Abs 2.1 0.9 - 3.2 x10(3)/mc L [facility] Monocyte % 13.1 % [facility] Monocyte Abs 1.4(H) 0.3 - 0.9 x10(3)/mc L [facility] Eos % 0.6 % [facility] Eosinophils Abs 0.1 0.0 - 0.4 x10(3)/mc L [facility] Basophil % 0.6 % [facility] Baso Absolute 0.1 0.0 - 0.1 [...] MD HEMATOLOGY ORDER NICK Performing Organization Address City/State/[facility] Co de Phone Number [facility] [place] [address] * (ABNORMAL) Hemogram (05/17/2022 3:33 AM EDT) White Blood Cell 10.4(H) 4.0 - 9.5 x10(3)/[facility] Red Blood Cell 3.72(L) 4.58 - 5.54 x10(6)/[facility] Hemoglobin 12.0(L) 13.7 - 16.5 g/dL [facility] Hematocrit 36.4(L) 40.5 - 48.5 % [facility] Mean Cell Volume 97.8(H) 82.9 - 93.1 [facility] Mean Cell Hemoglobin 32.3(H) 27.5 - 32.1 pg [facility] Mean Cell Hemoglobin Concentration 33.0 32.0 - 35.7 g/dL [facility] Platelet 149 145 - 357 x10(3)/[facility] RDW Standard Deviation 48.7(H) 36.0 - 45.0 [facility] RDW coefficient of variation 13.5 11.4 - 13.8 % [facility] Mean Platelet Volume 10.6 7.6 - 12.9 [facility] NRBC% auto 0.0 % [facility] NRBC Absolute 0.000 0.000 - 0.000 x10(3)/[facility] Blood 05/17/2022 3:33 AM EDT 05/17/2022 3:53 AM EDT Narrative Resulting Agency Comment Spec In Lab Edward Rodríguez MD HEMATOLOGY ORDER NICK Performing Organization Address [facility]/ZIP Co de Phone Number [facility] [place] [address] * (ABNORMAL) Urinalysis Microscopic Exam (05/16/2022 11:15 PM EDT) RBC, Urine 8(H) 0 - 3 /HPF [facility] WBC, Urine 2 0 - 3 /HPF [facility] Clean Catch Urine 05/16/2022 11:15 PM EDT 05/16/2022 11:30 PM EDT Narrative Resulting Agency Comment Spec In Lab Barbie Patiño MD URINE ORDERABLES Performing Organization Address [facility] Co de Phone Number [facility] [place] [address] * (ABNORMAL) Urinalysis with reflex Culture (05/16/2022 [...] HOSPITAL LABORATORY Leukocytes, Urine Dipstick Negative Negative [facility] Appearance, Urine Dipstick Clear Clear [facility] Specific [place] Urine Automated 1.021 1.005 - 1.030 [facility] Color, Urine Dipstick Yellow Yellow [facility] Reflex to Culture No [facility] Clean Catch Urine 05/16/2022 11:15 PM EDT 05/16/2022 11:30 PM EDT Narrative Resulting Agency Comment Spec In Lab Fito Summers MD URINE ORDERABLES Performing Organization Address [facility]/[place] [address] * Heparin (unfractionated) Level (05/16/2022 10:59 PM EDT) UF Heparin 0.65 IU/mL [facility] Comment: Specimen drawn more than one [...] MD HEMATOLOGY ORDERABLE S Performing Organization Address City/[facility]/ZIP Co de Phone Number [facility] [place] [address] * XR Chest One View (05/16/2022 9:14 [...] questions please contact the health patient care coordinator that requested your imaging first. ? Electronically signed by: Tiffanie George MD, [facility] ([phone]), at 05/16/2022 9:27 PM Narrative 05/16/2022 9:27 [...] have questions please contactthe health patient care coordinator that requested your imaging first. Electronically signed by: Tiffanie George MD, [facility]([phone]), at 05/16/2022 9:27 PM Fito Summers MD IMG DX ORDERABLES * EKG 12 Lead (05/16/2022 8:57 PM EDT) Ventricular rate 117 BPM MUSE SYSTEM QRS Duration 112 ms MUSE SYSTEM Q-T Interval 346 ms MUSE SYSTEM QTC Calculated (Bezet) 482 ms MUSE SYSTEM Calculated R Sarona -48 degrees MUSE SYSTEM Calculated T [place] 111 degrees MUSE SYSTEM INTERPRETATION Atrial fibrillation with rapid ventricular response Left anterior fascicular block Minimal voltage criteria for LVH, may be normal variant ( [place] product ) Nonspecific ST and T wave [...] 4:34 PM EDT) UF Heparin 0.53 IU/mL [facility] Comment: Heparin (anti-Xa) levels should be [...] MD HEMATOLOGY ORDERABLE S [facility] [address] [place] [address] * ECHO COMPLETE W CONTRAST (05/16/2022 12:49 PM EDT) EF 28 HEARTLAB SYSTEM Anatomical Region Laterality Modality Cardiac Other 05/16/2022 11:2 2 AM EDT Narrative 05/16/2022 1:54 PM EDT ?[facility] ? [facility] Center ?[address] ? [place] [address] ?Voice: ?Fax: ? Echocardiogram Report Name: KOKO BAH ?Study Date: 05/16/2022 11:22 AM ? Patient Location: [facility] 0303 B : 1940 ? Height: 67.5 in ? Account: [id number] Age: 81 yrs ? Weight: 176 lb Gender: Male ?BSA: 1.9 m2 Ordering Physician: FITO SUMMERS Referring Physician: MAIK FLORIAN Performed By: Jolene Bernard RDCS Exam Location: [facility]. Interpretation Summary Left ventricle [...] and LV systolic dysfunction are new. Procedure Complete-[id number]. Image enhancement Optison was used for both [...] Procedure Note Gladys Jaime MD - 05/16/2022 [facility] [place] [address] Voice: Fax: Echocardiogram Report Name: BAHKOKO Study Date: 1:22 AM Patient Location: [id number] : 1940 Height: 67.5 in Account: [id number] Age: 81 yrs Weight: 176 lb Gender: Male BSA: 1.9 m2 Ordering Physician: FITO SUMMERS Referring Physician: MAIK FLORIAN Performed By: Jolene Bernard RDCS Exam Location: [facility]. Interpretation Summary Left ventricle [...] moderate and LV systolicdysfunction are new. Procedure Complete-[id number]. Image enhancement Optison was used for both [...] AM EDT) Neutrophil % 78.8 % [facility] Neutrophil Absolute 9.11(H) 1.70 - 6.10 x10(3)/mc L [facility] Lymph % 9.4 % [facility] Lymphocytes Abs 1.1 0.9 - 3.2 x10(3)/ L [facility] Monocyte % 10.9 % [facility] Monocyte Abs 1.3(H) 0.3 - 0.9 x10(3)/ L [facility] Eos % 0.0 % [facility] Eosinophils Abs 0.0 0.0 - 0.4 x10(3)/ L [facility] Basophil % 0.3 % [facility] Baso Absolute 0.0 0.0 - 0.1 x10(3)/[facility] Immature Gran % 0.60 % [facility] Comment: Immature granulocytes(IG's)percentage and absolute count will include metamyelocytes, myelocytes, and promyelocytes. Blood smears from CBCs yielding IG's will be scanned manually for concordance. If this scan disagrees with the automated IG or if promyelocytes are noted, a manual differential will be performed. Immature Gran Absolute 0.07(H) 0.00 - 0.04 x10(3)/ L [facility] Blood 05/16/2022 3:01 AM EDT 05/16/2022 3:36 AM EDT Narrative Resulting Agency Comment Spec In Lab Erin Garza MD HEMATOLOGY ORDERABLE S [facility] [place] [address] * (ABNORMAL) Hemogram (05/16/2022 3:01 AM EDT) White Blood Cell 11.6(H) 4.0 - 9.5 x10(3)/ L [facility] Red Blood Cell 3.62(L) 4.58 [...] Mean Platelet Volume 10.5 7.6 - 12.9 [facility] NRBC% auto 0.0 % [facility] NRBC Absolute 0.000 0.000 - 0.000 x10(3)/mc L [facility] Blood 05/16/2022 3:01 AM EDT 05/16/2022 3:36 AM EDT Narrative Resulting Agency Comment Spec In Lab Erin Garza MD HEMATOLOGY ORDERABLE S Performing Organization Address City/[facility] Co de Phone Number [facility] [place] [address] * Phosphorus (05/16/2022 3:01 AM EDT) Phosphorus 3.7 2.5 - 4.5 mg/dL [facility] Blood 05/16/2022 3:01 AM EDT 05/16/2022 3:36 AM EDT Narrative Resulting Agency Comment Spec In Lab Fito Summers MD CHEMISTRY ORDERABLES Performing Organization Address [facility]/ZIP Co de Phone Number [facility] [place] [address] * Magnesium (05/16/2022 3:01 AM EDT) Magnesium 0.77 0.69 - 1.07 mmol/L [facility] Blood 05/16/2022 3:01 AM EDT 05/16/2022 3:36 AM EDT Narrative Resulting Agency Comment Spec In Lab Fito Summers MD CHEMISTRY ORDERABLES [facility] [place] [address] * (ABNORMAL) Basic Metabolic Panel (non-fasting) (05/16/2022 [...] Summers MD CHEMISTRY ORDERABLES [facility] [place] [address] * (ABNORMAL) BLOOD GAS 2 ARTERIAL (05/15/2022 [...] CARE TEST O RDERABLES [facility] [place] [address] * (ABNORMAL) BLOOD GAS 2 ARTERIAL (05/15/2022 [...] CARE TEST O RDERABLES Performing Organization Address [facility]/ZIP Co de Phone Number [facility] [place] [address] * (ABNORMAL) Prothrombin Time (05/15/2022 12:30 PM [...] DO HEMATOLOGY ORDERABLE S Performing Organization Address [facility]/ZIP Co de Phone Number [facility] [place] [address] * (ABNORMAL) APTT (05/15/2022 12:30 PM EDT) [...] DO HEMATOLOGY ORDERABLE S Performing Organization Address [facility]/ZIP Co de Phone Number [facility] [place] [address] * Gold Tube HOLD (05/15/2022 12:20 PM EDT) [facility] Gold Hold Sample in lab. [facility] Blood No Charge / Unknown 05/15/2022 12:20 PM EDT 05/15/2022 12:20 PM EDT Lc TRIPP CHEMISTRY ORDERABLES Performing Organization Address [facility]/ZIP Co de Phone Number [facility] [place] [address] * Type and Screen Validity (05/15/2022 12:00 PM EDT) T&S only valid at [facility]ORY Comment:This Type and Screen result is only valid at the [facility] Hospital Blood 05/15/2022 12:0 0 PM EDT 05/15/2022 12:17 PM EDT Narrative Resulting Agency Comment Spec In Lab Lc TRIPP BLOOD BANK LAB ORDER NICK Performing Organization Address City/[facility]/ZIP Co de Phone Number [facility] [place] [address] * ABORH Recheck Status (05/15/2022 12:00 PM EDT) ABORH Recheck Order Order Placed [facility] ABORH Type Recheck Complete [facility] Blood 05/15/2022 12:0 0 PM EDT 05/15/2022 12:17 PM EDT Narrative Resulting Agency Comment Spec In Lab Lc TRIPP BLOOD BANK LAB ORDER NICK [facility] [place] [address] * CK (05/15/2022 12:00 PM EDT) Creatine Kinase 87 0 - 200 unit/L [facility] Blood Venous Draw / Unknown 05/15/2022 12:00 PM EDT 05/15/2022 12:19 PM EDT Narrative Resulting Agency Comment Spec In Lab Fito Summers MD CHEMISTRY ORDERABLES [facility] [place] [address] * Antibody screen (05/15/2022 12:00 PM EDT) Ab Screen Interp Negative [facility] Expires at [id number] on: 05/18/2022 [facility] Blood 05/15/2022 12:0 0 PM EDT 05/15/2022 12:17 PM EDT Narrative Resulting Agency Comment Spec In Lab Lc TRIPP BLOOD BANK LAB ORDER NICK [facility] [place] [address] * ABO/Rh Typing (05/15/2022 12:00 PM EDT) ABORH Type O Pos [facility] Blood 05/15/2022 12:0 0 PM EDT 05/15/2022 12:17 PM EDT Narrative Resulting Agency Comment Spec In Lab Lc TRIPP BLOOD BANK LAB ORDER NICK [facility] [place] [address] * (ABNORMAL) Differential, Automated (05/15/2022 12:00 PM EDT) Neutrophil % 79.4 % [facility] Neutrophil Absolute 7.49(H) 1.70 - 6.10 x10(3)/ L [facility] Lymph % 11.3 % [facility] Lymphocytes Abs 1.1 0.9 - 3.2 x10(3)/[facility] Monocyte % 7.8 % [facility] Monocyte Abs 0.7 0.3 - 0.9 x10(3)/ L [facility] Eos % 0.6 % [facility] Eosinophils Abs 0.1 0.0 - 0.4 x10(3)/[facility] Basophil % 0.6 % [facility] Baso Absolute 0.1 0.0 - 0.1 x10(3)/ L [facility] Immature Gran % 0.30 % COPLEY [...] TRIPP HEMATOLOGY ORDERABLE S [facility] [place] [address] * (ABNORMAL) Hemogram (05/15/2022 12:00 PM EDT) [...] RDW Standard Deviation 45.9(H) 36.0 - 45.0 [facility] RDW coefficient of variation 13.1 11.4 - 13.8 % [facility] Mean Platelet Volume 10.5 7.6 - 12.9 [facility] NRBC% auto 0.0 % [facility] NRBC Absolute 0.000 0.000 - 0.000 x10(3)/mc L [facility] Blood 05/15/2022 12:0 0 PM EDT 05/15/2022 12:19 PM EDT Narrative Resulting Agency Comment Spec In Lab Lc TRIPP HEMATOLOGY ORDERABLE S [facility] [place] [address] * (ABNORMAL) Basic Metabolic Panel (non-fasting) (05/15/2022 [...] Morales DO CHEMISTRY ORDERABLES [facility] [place] [phone] documented in this encounter Visit Diagnoses Not [...] - Reason: Transfer to a Procedural area)1955 ([facility] Unhold - Provider: Admin Adt) 0816 (Given [...] Provider: Barbie Joyce RN - Reason: NPO)1750 ([facility] Hold - Provider: Admin Adt - Reason: Transfer to a Procedural area)1955 ([facility] Unhold - Provider: Admin Adt)2131 (Given - [...] 0853 (Given - Provider: Barbie Joyce, DION)1750 ([facility] Hold - Provider: Admin Adt - Reason: Transfer to a Procedural area)1955 ([facility] Unhold - Provider: Admin Adt) 0816 (Given [...] Admin Adt)1999 (Not Given - Provider: Tere Blankenship, DION [...] pain medications are indicated. , Routine 175 ([facility] Hold - Provider: Admin Adt - Reason: Transfer to a Procedural area)1955 ([facility] Unhold - Provider: Admin Adt) alum-mag hydroxide-simeth [...] Flavia Schuler RN)1745 (Given - Provider: Negra Baiely RN) iohexoL (Omnipaque) (350 mg/mL) solution (CANCELED) [...] - Reason: Transfer to a Procedural area)1955 ([facility] Unhold - Provider: Admin Adt) midazolam (pf) [...] - Reason: Transfer to a Procedural area)1955 ([facility] Unhold - Provider: Admin Adt) sodium chloride [...] Routine documented in this encounter Care Teams Position Classification Manager Relationship Specialty Start Date End Date Bobby Das MD [address] [place] [address] [place] [phone] PCP - General 10/02/10 documented as of this encounter
--- OUTSIDE RECORDS SUMMARY | 2024-09-30 12:11 | XMS_ITS | Encounter Summary ---
Author Organization [facility] [place] [address] Care Team Providers Care Building Construction Teacher Name Role Phone Bobby Das MD Primary Care Provider [phone] Encounter Details Date Type Department Care Team (Late st Contact Info) Description 02/27/2021 [place] [address] Matt Chisholm MD [facility] [place] [address] Social History Tobacco Use Types Packs/Day Years [...] filedocumented in this encounter Care Teams Building Construction Teacher Relationship Specialty Start Date End Date Bobby Das MD [address] [place] [address] [place] [address] PCP - General 10/02/10 documented as of this encounter
--- OUTSIDE RECORDS SUMMARY | 2024-09-30 12:11 | XMS_ITS | Encounter Summary ---
[place] [address] Care Team Providers Care Paleology Teacher Name Role Phone Bobby Das MD Primary Care Provider [phone] Reason for Referral * Consultation (Routine) - Closed Specialty Diagnoses / Procedures Referred By Contac t Referred To Contact Neurology Diagnoses Low back pain, non-specific Status post vertebroplasty Transient left leg weakness EMG Arpita Whitney APRN [facility] [place] [address] [facility] [address] [place] [phone] Referral ID Status Reason Start Date Expiration Date V isits Requested Visits Authorized [id number] Closed Consult, Test & Treat 04/17/2021 04/17/2022 1 1 * Physical Therapy (Routine) - Specialty Diagnoses / Procedures Referred By Contac t Referred To Contact Diagnoses Low back pain, non-specific Status post vertebroplasty Arpita Whitney APR[place] [facility] [place] [address] Referral ID Status Reason Start Date Expiration Date V isits Requested Visits Authorized [id number] Evaluate and Treat 04/17/2021 10/14/2021 12 12 Reason for Visit * Reason Comments Back Pain new patient visit * Consultation (Routine) - Closed Specialty Diagnoses / Procedures Referred By Conthomar t Referred To Contact [facility] Diagnoses Low back pain Pain - Low back pain/ MRI 02/20/21 & XR 01/31/21 @ [facility] Bobby Das MD [address] [place] [address] [place] [address] [facility] [place] [address] Referral ID Status Reason Start Date Expiration Date Visits Re quested Visits Authorized [id number] Closed 03/07/2021 03/07/2022 1 1 Encounter Details Date Type Department Care Team (Late st Contact Info) Description 04/17/2021 2:30 PM EDT Office Visit [place] [address] Arpita Whitney APRN [facility] [place] [address] Low back pain, non-specific; Status post vertebroplasty; [...] from the original note were not included. [facility] Date [...] standing limited due to back pain [facility] Prescription Monitoring Program was checked. The number of prescriptions reported was 0. Current Medications: Outpatient Medications Marked as Taking for the 04/17/21 encounter (Office Visit) with Arpita Whitney APRN Medication Sig Dispense Refill ??? fluticasone propionate (FLONASE) 50 mcg/actuation [place], Suspension as needed. ??? fluorouraciL (EFUDEX) 5 [...] Chisholm MD [facility] RAD Review of Systems: ROS: [...] y.o. year-old male who presents to the [facility], previously seen [...] Mr. Koko Zamora's care. Arpita Whitney, MSN, GROCERY STORE ASSOCIATE- C, FINISHER DENTURE Nurse Practitioner [facility] [address] [address] / [facility] documented in this encounter Plan of [...] limbs documented in this encounter Care Teams Paleology Teacher Relationship Specialty Start Date End Date Bobby Das MD [address] [place] [address] [place] [address] PCP - General 10/02/10 documented as of this encounter
--- OUTSIDE RECORDS SUMMARY | 2024-09-30 12:11 | XMS_ITS | Encounter Summary ---
Author Organization [facility] [place] [address] Care Team Providers Care Patent Lawyer Name Role Phone Bobby Das MD Primary Care Provider [phone] Encounter Details Date Type Department Care Team (Latest Contact Info) Description 10/25/2020 6:35 AM EST Laboratory [place] [phone] Compression fracture of T9 vertebra, initial encounter [...] EST) Platelet 192 145 - 357 x10(3)/mc [facility] Immature Plt % 2.6 0.0 - 7.4 % [facility] Comment: Limitation of the Immature Platelet Fraction (IPF)-May be less reliable when the platelet count is less than 11e941/uL due to statistical imprecision. The IPF value [...] in a decreased state of production. References: [employer] The Clinical Value of the Immature Platelet Fraction (IPF) in Cell Recovery Document Number [id number] 04/2011 [employer] The Role of the Immature Platelet Fraction (IPF) in the Differential Diagnosis of Thrombocytopenia, Document [id number] V05/10/23 P014 Blood specimen (specimen) 10/25/2020 6:35 AM EST 10/25/2020 6:52 AM EST Narrative Resulting Agency Comment Spec In Lab Alphonso Esquivel DO HEMATOLOGY ORDERABLE S [facility] [place] [address] * Prothrombin Time (10/25/2020 6:35 AM EST) Prothrombin Time 10.8 9.4 - 12.5 sec [facility] International Normalization Ratio 1.0 [facility] Comment: An [...] Lab Alphonso Esquivel DO HEMATOLOGY ORDERABLE S [facility] [place] [address] documented in this encounter Visit Diagnoses Diagnosis Compression fracture of T9 vertebra, initial encounter documented in this encounter Care Teams Patent Lawyer Relationship Specialty Start Date End Date Bobby Das MD [address] [place] [address] [place] [address] PCP - General 10/02/10 documented as of this encounter
[2024-09-30 12:12] LABS: Source Nasopharynx
--- OUTSIDE RECORDS SUMMARY | 2024-09-30 12:12 | XMS_ITS | Encounter Summary ---
Author Organization [facility] Address [facility] [address] Care Team Providers Care Wood Buffer Name Role Phone Bobby Das MD Primary Care Provider [phone] Encounter Details Date Type Department Care Team (Late st Contact Info) Description 08/25/[address] [facility] [address] [place] [address] Gloria Ferrell MD [facility] [place] [address] Social History Tobacco Use Types Packs/Day Years [...] filedocumented in this encounter Care Teams Wood Buffer Relationship Specialty Start Date End Date Bobby Das MD [address] [place] [address] [place] [address] PCP - General 10/02/10 documented as of this encounter
--- OUTSIDE RECORDS SUMMARY | 2024-09-30 12:12 | XMS_ITS | Encounter Summary ---
Author Organization [facility] [place] [address] Care Team Providers Care Gin Clerk Name Role Phone Bobby Das MD Primary Care Provider [phone] Reason for Referral * Diagnostic Test (Routine) - Closed Specialty Diagnoses / Procedures Referred By Contac t Referred To Contact Radiology Diagnoses Compression fracture of T9 vertebra, initial encounter Procedures IR Vertebroplasty Thoracic Single Level Alphonso Esquivel, [facility] [place] [address] [place] [address] Referral ID Status Reason Start Date Expiration Date V isits Requested Visits Authorized [id number] Closed Specialty Service Requested 10/13/2020 04/13/2022 1 1 Encounter Details Date Type Department Care Team (Late st Contact Info) Description 10/13/2020 Orders [place] [address] Alphonso Esquivel [facility] [place] [address] Compression fracture of T9 vertebra, [...] was made and a 13ga introducer needle (Utel) was advanced through the right pedicle and to the ??T9 vertebral body during an intermittent fluoroscopic guidance. The [place] biopsy cannula was advanced through the introducer needle and the system was advanced further into the vertebral body. The core biopsy sample was removed and sent in formalin. 10 cc 1% lidocaine was used for local anesthesia of the left pedicle entry site at the skin and periosteum overlying the ??T9 level. A small skin incision was made and a 13ga introducer needle (Utel) was advanced through the left pedicle and [...] the number below. ? Electronically signed by: Matt Valverde [facility] ([phone]), at 10/25/2020 11:02 AM Procedure Note Matt Valverde MD - 10/25/2020 [...] at the skin and periosteum overlying the U4yenql. A small skin incision was made and a 13ga introducer needle (Utel)was advanced through the right pedicle and to the T9 vertebral body duringan intermittent fluoroscopic guidance. The Utel biopsy cannula wasadvanced through the introducer needle and the system was advanced further intothe vertebral body. The core biopsy sample was removed and sent in formalin. 10 cc 1% lidocaine was used for local anesthesia of the left pedicle entrysite at the skin and periosteum overlying the T9 level. A small skin incisionwas made and a 13ga introducer needle (Utel) was advanced through theleft pedicle and to [...] contact the number below. Electronically signed by: Matt Valverde [facility]([phone]), at 10/25/2020 11:02 AM Alphonso Esquivel DO [facility] ORDER[facility]LES * Prothrombin Time (10/25/2020 6:35 AM EST) Prothrombin Time 10.8 9.4 - 12.5 sec [facility] International Normalization Ratio 1.0 [facility] [...] Lab Alphonso Esquivel DO HEMATOLOGY ORDERABLE S [facility] [place] [address] * Platelet count (10/25/2020 6:35 AM EST) Platelet 192 145 - 357 x10(3)/mc L [facility] Immature Plt % 2.6 0.0 - 7.4 % [facility] Comment: Limitation of the Immature Platelet Fraction (IPF)-May be less reliable when the platelet count is less than 35k847/uL due to statistical imprecision. The IPF value [...] in a decreased state of production. References: [employer] The Clinical Value of the Immature Platelet Fraction (IPF) in Cell Recovery Document Number [id number] 04/2011 [employer] The Role of the Immature Platelet Fraction (IPF) in the Differential Diagnosis of Thrombocytopenia, Document [id number] V05 P003/23 Blood specimen (specimen) 10/25/2020 6:35 AM EST 10/25/2020 6:52 AM EST Narrative Resulting Agency Comment Spec In Lab Alphonso Esquivel DO HEMATOLOGY ORDERABLE S [facility] [place] [address] documented in this encounter Visit Diagnoses Diagnosis Compression fracture of T9 vertebra, initial encounter Compression fracture of T9 vertebra, initial encounter documented in this encounter Care Teams Gin Clerk Relationship Specialty Start Date End Date Bobby Das MD [address] [place] [address] [place] [phone] PCP - General 10/02/10 documented as of this encounter
--- OUTSIDE RECORDS SUMMARY | 2024-09-30 12:12 | XMS_ITS | Encounter Summary ---
Author Organization [place] [address] Care Team Providers Care Twisthand Name Role Phone Bobby Das MD Primary Care Provider [phone] Reason for Visit * Reason Comments Follow-up Encounter Details Date Type Department Care Team (Late st Contact Info) Description 05/31/2014 1:45 PM EDT Office Visit Dermatology at [place] [address] [place] [address] Cy Knight MD [address] [facility] [place] [address] History of basal cell carcinoma (Primary Dx) [...] from the original note were not included. [facility] Actinic Keratosis: After Your Visit Your [...] more? Visit our health information library at [email or web address] You can also view health information on [employer], your personal patient account. Log in or sign up today. Enter L364 in the search box to learn more about Actinic Keratosis: After Your Visit. ?? [id number] [employer]. Care instructions adapted under license by [facility]. This care instruction is for use with your licensed healthcare professional. If you have questions about a medical condition or this instruction, always ask your healthcare professional. [employer] disclaims any warranty or liability for your use of this information. Content Version: 9.9.617815; Last Revised: December 22, 2012 documented in this encounter Progress Notes * Cy Knight MD - 05/31/2014 2:08 PM EDT Problem: Follow up for repeat skin checkup. Shadi follows up after last being seen in March. 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 I also treated a verruca vulgaris on [...] skin documented in this encounter Care Teams Twisthand Relationship Specialty Start Date End Date Bobby Das MD [address] [place] [address] [place] [address] PCP - General 10/02/10 documented as of this encounter
--- OUTSIDE RECORDS SUMMARY | 2024-09-30 12:12 | XMS_ITS | Encounter Summary ---
Author Organization [facility] Address [facility] [place] [address] Care Team Providers Care Ladle Builder Name Role Phone Bobby Das MD Primary Care Provider [phone] Reason for Visit * Reason Onset Date Comments Pre Procedure Call 08/01/2015 Encounter Details Date Type Department Care Team (Late st Contact Info) Description 08/01/2015 Telephone Dermatology at [facility] [address] [place] [phone] Cassy Jacobson LPN Pre Procedure Call Social [...] on filedocumented in this encounter Care Teams Ladle Builder Relationship Specialty Start Date End Date Bobby Das MD [address] [place] [address] [place] [phone] PCP - General 10/02/10 documented as of this encounter
--- OUTSIDE RECORDS SUMMARY | 2024-09-30 12:12 | XMS_ITS | Encounter Summary ---
Author Organization [facility] Address [facility] [place] [address] Care Team Providers Care Rate Setter Name Role Phone Bobby Das MD Primary Care Provider [phone] Reason for Visit * Reason Comments Suture / Staple Removal Encounter Details Date Type Department Care Team (Late st Contact Info) Description 08/31/2015 2:30 PM EDT Clinical Support Dermatology at [address] [address] Leo Solo MD [facility] DR JENNY [place] [address] Visit for suture removal Social History Tobacco [...] with history of basal cell carcinoma, right oriental orthodox, s/p Mohs repaired by transposition flap repair who is presenting for suture removal. Denies complications. Exam: General: No acute distress Skin: Limited examination of right oriental orthodox shows a well-healed flap. There is no erythema, dehiscence, ecchymosis, or drainage. Assessment and Plan 1. Basal cell carcinoma, right oriental orthodox, s/p Mohs repaired by transposition flap repair [...] sutures documented in this encounter Care Teams Rate Setter Relationship Specialty Start Date End Date Bobby Das MD [address] [place] [address] [place] [address] PCP - General 10/02/10 documented as of this encounter
--- OUTSIDE RECORDS SUMMARY | 2024-09-30 12:12 | XMS_ITS | Encounter Summary ---
Author Organization [facility] Address [facility] [place] [address] Care Team Providers Care Broaching Machine Set Up Operator Name Role Phone Bobby Das MD Primary Care Provider Encounter Details Date Type Department Care Team (Late st Contact Info) Description 06/26/2018 Ancillary Procedure Radiology Library at [facility] [place] [address] Bobby Das MD [address] [place] [phone] Social History Tobacco Use Types Packs/Day Years [...] DX Spine (06/26/2018 12:00 AM EDT) Narrative [facility] - 06/29/2019 9:46 PM EDT This exam is auto-finalizing. It's purpose is for storage only. Bobby Das MD G FILM LIBRARY ORD ERABLES Performing Organization Address City/State/[facility] Co de Phone Number [facility] [place], [place] documented in this encounter Visit Diagnoses Not on filedocumented in this encounter Care Teams Broaching Machine Set Up Operator Relationship Specialty Start Date End Date Bobby Das MD [address] [place] [address] [place] [address] PCP - General 10/02/10 documented as of this encounter
--- OUTSIDE RECORDS SUMMARY | 2024-09-30 12:12 | XMS_ITS | Encounter Summary ---
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 [place] [address] [place] [address] Referral ID Status Reason Start Date Expiration Date V isits Requested Visits Authorized [id number] Closed Specialty Service Requested 07/13/2019 07/12/2020 1 1 * Diagnostic Test (Routine) - Closed Specialty Diagnoses / Procedures Referred By Contac t Referred To Contact Radiology Diagnoses Closed compression fracture of L1 lumbar vertebra with delayed healing, subsequent encounter Malignant neoplasm of prostate Procedures IR Biopsy Spine Zbigniew Thompson [place] [facility] [place] [place] [address] [place] [address] Referral ID Status Reason Start Date Expiration Date V isits Requested Visits Authorized [id number] Closed Specialty Service Requested 07/13/2019 07/12/2020 1 [...] Augmentation Lumbar Single Level Zbigniew Thompson [place] [facility] [place] [address] [place] [address] Referral ID Status Reason Start Date Expiration Date V isits Requested Visits Authorized [id number] Closed Specialty Service Requested 07/13/2019 07/12/2020 1 1 Encounter Details Date Type Department Care Team (Latest Contact Info) Description 07/20/2019 8:24 AM EDT - 07/20/2019 11:59 PM EDT Hospital [place] [phone] Elmer Loya MD [facility] [place] [address] Closed compression fracture of L1 lumbar vertebra [...] RN - 07/20/2019 10:06 AM EDT [facility] Discharge Instructions for Vertebroplasty Your vertebroplasty was [...] is during regular office hours, please call [phone]. If it is after regular office hours, or on weekends or holidays, please call [phone] and ask to speak to the Bakery Manager relocation coordinator for Interventional Radiology. XXX You have received [...] AM EDT [facility] Name: ETTA ABH Date of : 1940 AGE: 78 y.o. Address: [address] [place] [phone] (home) Mobile: No relevant phone numbers on file. Referring Provider: Zbigniew Thompson REASON FOR VISIT: Order Questions Answers Where will study be performed? [facility] Radiology [120] Specify location Lumbar Reason [...] was made and a 13ga introducer needle ([employer]) was advanced through the right pedicle and [...] was made and a 13ga introducer needle ([employer]) was advanced through the left pedicle and [...] ? Electronically signed by: Bobby Sullivan MD, [facility] ([phone]), at 07/20/2019 1:20 PM Procedure Note Bobby Marshall MD - 07/20/2019 EXAMINATION: IR VERTEBROPLASTY LUMBAR MULTIPLE LEVELS, IR BIOPSY SPINE CLINICAL HISTORY: Request L1 vertebroplasty and biopsy. Hx of prostateCA. Discussed with Dr. Brink; Exam/Procedure requested: Request [id number] and biopsy. Hx of prostate CA. Discussed [...] at the skin and periosteum overlying the X0emfig. A small skin incision was made and a 13ga introducer needle ([employer])was advanced through the right pedicle and to [...] incision was made and a 13ga introducer needle([employer]) was advanced through the left pedicle and [...] below. Electronically signed by: Bobby Sullivan MD, [facility]([phone]), at 07/20/2019 1:20 PM Elmer Loya MD [...] was made and a 13ga introducer needle ([employer]) was advanced through the right pedicle and [...] was made and a 13ga introducer needle ([employer]) was advanced through the left pedicle and [...] ? Electronically signed by: Bobby Sullivan MD, [facility] ([phone]), at 07/20/2019 1:20 PM Procedure Note Bobby Marshall MD - 07/20/2019 EXAMINATION: IR VERTEBROPLASTY LUMBAR MULTIPLE LEVELS, IR BIOPSY SPINE CLINICAL HISTORY: Request L1 vertebroplasty and biopsy. Hx of prostateCA. Discussed with Dr. Brink; Exam/Procedure requested: Request [id number] and biopsy. Hx of prostate CA. Discussed [...] at the skin and periosteum overlying the T7lolsy. A small skin incision was made and a 13ga introducer needle ([employer])was advanced through the right pedicle and to [...] incision was made and a 13ga introducer needle([employer]) was advanced through the left pedicle and [...] below. Electronically signed by: Bobby Sullivan MD, [facility]([phone]), at 07/20/2019 1:20 PM Elmer Loya MD [facility] IR ORDERABLES * Surgical Pathology Report (07/20/2019 10:45 AM EDT) Final Diagnosis [id number] ? Location: [facility] The signing pathologist has (i) examined [...] Jl Reynolds Verified: ??07/22/2019 ?Pathologist Performed at: ??-[facility] Dept. of Pathology, [place], [place] DISCUSSION Deeper levels into the biopsy [...] labeled A1. ??sns 07/22/2019 3:15 PM EDT [facility] BONE STRUCTURE / Unknown 07/20/2019 10:45 AM EDT 07/20/2019 10:45 AM EDT Elmer Loya MD PATHOLOGY/CYTOLOGY O RADHA Performing Organization Address City/[facility]/ZIP Co de Phone Number [facility] [place] [address] * Specimen to Pathology (07/20/2019 8:41 AM EDT) AP Specimen 07/20/2019 8:41 AM EDT 07/20/2019 8:41 AM EDT Narrative [facility] - 07/20/2019 8:41 AM EDT Specimen requisition ordered. ??Separate Pathology report to follow Elmer Loya MD PATHOLOGY/CYTOLOGY O RADHA Performing Organization Address City/[facility] Co de Phone Number [facility] [place] [address] documented in this encounter Visit Diagnoses Diagnosis [...] mg documented in this encounter Care Teams Miller Head Assistant Wet Process Relationship Specialty Start Date End Date Bobby Das MD [address] [place] [address] [place] [address] PCP - General 10/02/10 documented as of this encounter
--- OUTSIDE RECORDS SUMMARY | 2024-09-30 12:12 | XMS_ITS | Encounter Summary ---
Author Organization [facility] [place] [address] Care Team Providers Care Cell Operation Supervisor Name Role Phone Bobby Das MD Primary Care Provider [phone] Encounter Details Date Type Department Care Team (Late st Contact Info) Description 09/06/2020 Ancillary Procedure Radiology at [facility] [address] [place] [address] Amy Grimaldo MD [address] [place] [address] Social History Tobacco Use Types Packs/Day Years [...] Amy Grimaldo MD IMG FILM LIBRARY ORDERABLES [place], [place] documented in this encounter Visit Diagnoses Not on filedocumented in this encounter Care Teams Cell Operation Supervisor Relationship Specialty Start Date End Date Bobby Das MD [address] [place] [address] [place] [phone] PCP - General 10/02/10 documented as of this encounter
--- OUTSIDE RECORDS SUMMARY | 2024-09-30 12:12 | XMS_ITS | Encounter Summary ---
[place] [address] Care Team Providers Care Grind Operator Name Role Phone Bobby Das MD Primary Care Provider [phone] Encounter Details Date Type Department Care Team (Late st Contact Info) Description 12/13/2016 Telephone [place] [phone] Kourtney Hilliard Social History Tobacco Use Types [...] on filedocumented in this encounter Care Teams Grind Operator Relationship Specialty Start Date End Date Bobby Das MD [address] [place] [address] [place] [address] PCP - General 10/02/10 documented as of this encounter
--- OUTSIDE RECORDS SUMMARY | 2024-09-30 12:12 | XMS_ITS | Encounter Summary ---
Author Organization [facility] [place] [address] Care Team Providers Care Coding Coordinator Name Role Phone Bobby Das MD Primary Care Provider [phone] Encounter Details Date Type Department Care Team (Late st Contact Info) Description 07/13/2019 [place] [address] Alan Brink MD [facility] [place] [address] Gastrointestinal hemorrhage, unspecified gastrointestinal hemorrhage type (Primary [...] file Gets together: Not on file Attends druze service: Not on file Active member of [...] Prothrombin Time 11.3 9.4 - 12.5 sec [facility] [...] Lab Bobby Marshall MD HEMATOLOGY ORDERABLE S [facility] [place] [address] * (ABNORMAL) Hemogram (07/20/2019 8:18 AM EDT) White Blood Cell 6.0 4.0 - 9.5 x10(3)/mc L [facility] Red Blood Cell 4.50(L) 4.58 - 5.54 x10(6)/mc L [facility] Hemoglobin 14.8 13.7 - 16.5 gm/dL [facility] Hematocrit 43.9 40.5 - 48.5 % [facility] Mean Cell Volume 97.6(H) 82.9 - 93.1 [facility] Mean Cell Hemoglobin 32.9(H) 27.5 - 32.1 pg [facility] Mean Cell Hemoglobin Concentration 33.7 32.0 - 35.7 gm/dL [facility] Platelet 164 145 - 357 x10(3)/mc L [facility] RDW Standard Deviation 49.3(H) 36.0 - 45.0 [facility] RDW coefficient of variation 13.6 11.4 - 13.8 % [facility] Mean Platelet Volume 10.0 7.6 - 12.9 [facility] NRBC% auto 0.0 % [facility] NRBC Absolute 0.000 0.000 - 0.000 x10(3)/mc L [facility] Blood specimen (specimen) 07/20/2019 8:18 AM EDT 07/20/2019 8:21 AM EDT Narrative Resulting Agency Comment Spec In Lab Bobby Marshall MD HEMATOLOGY ORDERABLE S [facility] [place] [address] documented in this encounter Visit Diagnoses Diagnosis Gastrointestinal hemorrhage, unspecified gastrointestinal hemorrhage type- Primary documented in this encounter Care Teams Coding Coordinator Relationship Specialty Start Date End Date Bobby Das MD [address] [place] [address] [place] [phone] PCP - General 10/02/10 documented as of this encounter
--- OUTSIDE RECORDS SUMMARY | 2024-09-30 12:12 | XMS_ITS | Encounter Summary ---
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, sequela Closed compression fracture of L1 lumbar vertebra with delayed healing, subsequent encounter Malignant neoplasm of prostate Procedures IR Vertebroplasty Lumbar Multiple Levels IR Vertebral Augmentation Lumbar Single Level Zbigniew Thompson PA [facility] [place] [address] [place] [address] Referral ID Status Reason Start Date Expiration Date V isits Requested Visits Authorized [id number] Closed Specialty Service Requested 07/13/2019 07/12/2020 1 1 * Diagnostic Test (Routine) - Closed Specialty Diagnoses / Procedures Referred By Contac t Referred To Contact Radiology Diagnoses Closed compression fracture of L1 lumbar vertebra with delayed healing, subsequent encounter Malignant neoplasm of prostate Procedures IR Biopsy Spine Zbigniew Thompson [place] [facility] [place] [address] [facility] [place] [address] Referral ID Status Reason Start Date Expiration Date V isits Requested Visits Authorized [id number] Closed Specialty Service Requested 07/13/2019 07/12/2020 1 1 Reason for Visit * Reason Comments Back Pain * Consultation (ANDREINA) - Closed Specialty Diagnoses / Procedures Referred By Contac t Referred To Contact [facility] Diagnoses Collapsed vertebra, not elsewhere classified, lumbar region, subsequent encounter for fracture with routine healing Bobby Das MD [address] [place] [address] [place] [address] [facility] [place] [address] Referral ID Status Reason Start Date Expiration Date V isits Requested Visits Authorized [id number] Closed Consult, Test & Treat Connection Center 06/30/2019 06/29/2020 1 1 Encounter Details Date Type Department Care Team (Late st Contact Info) Description 07/13/2019 2:40 PM EDT Office Visit [place] [phone] Zbigniew Thompson PA [facility] [place] [address] Closed compression fracture of L1 lumbar vertebra [...] was made and a 13ga introducer needle ([employer]) was advanced through the right pedicle and [...] was made and a 13ga introducer needle ([employer]) was advanced through the left pedicle and [...] Electronically signed by: Bobby Sullivan MD, [facility] ([phone]), at 07/20/2019 1:20 PM Procedure Note Bobby Marshall MD - 07/20/2019 EXAMINATION: IR VERTEBROPLASTY LUMBAR MULTIPLE LEVELS, IR BIOPSY SPINE CLINICAL HISTORY: Request L1 vertebroplasty and biopsy. Hx of prostateCA. Discussed with Dr. Brink; Exam/Procedure requested: Request [id number] and biopsy. Hx of prostate CA. Discussed [...] at the skin and periosteum overlying the S4fhbvv. A small skin incision was made and a 13ga introducer needle ([employer])was advanced through the right pedicle and to [...] incision was made and a 13ga introducer needle([employer]) was advanced through the left pedicle and [...] this report, please contact the number below. Elmer Loya MD IMG IR ORDERABLES * [...] was made and a 13ga introducer needle ([employer]) was advanced through the right pedicle and [...] was made and a 13ga introducer needle ([employer]) was advanced through the left pedicle and [...] Electronically signed by: Bobby Sullivan MD, [facility] ([phone]), at 07/20/2019 1:20 PM Procedure Note Bobby Marshall MD - 07/20/2019 EXAMINATION: IR VERTEBROPLASTY LUMBAR MULTIPLE LEVELS, IR BIOPSY SPINE CLINICAL HISTORY: Request L1 vertebroplasty and biopsy. Hx of prostateCA. Discussed with Dr. Brink; Exam/Procedure requested: Request [id number] and biopsy. Hx of prostate CA. Discussed [...] at the skin and periosteum overlying the V9jwzdq. A small skin incision was made and a 13ga introducer needle ([employer])was advanced through the right pedicle and to [...] incision was made and a 13ga introducer needle([employer]) was advanced through the left pedicle and [...] this report, please contact the number below. Elmre Loya MD IMG IR ORDERABLES documented in [...] sequela documented in this encounter Care Teams Diesel Engine Ii Pipe Fitter Relationship Specialty Start Date End Date Bobby Das MD [address] [place] [address] [place] [address] PCP - General 10/02/10 documented as of this encounter
--- OUTSIDE RECORDS SUMMARY | 2024-09-30 12:12 | XMS_ITS | Encounter Summary ---
Author Organization [facility] [place] [address] Care Team Providers Care Sustainability Project Coordinator Name Role Phone Bobby Das MD Primary Care Provider [phone] Reason for Visit * Reason Comments Shortness of Breath Encounter Details Date Type Department Care Team (Late st Contact Info) Description 12/24/2011 10:15 AM EST Office Visit [address] [phone] Torrey Giang MD [facility] DR [place] [address] SOB (shortness of breath) (Primary Dx) Social [...] breath documented in this encounter Care Teams Sustainability Project Coordinator Relationship Specialty Start Date End Date Bobby Das MD [address] [place] [address] [place] [phone] PCP - General 10/02/10 documented as of this encounter
--- OUTSIDE RECORDS SUMMARY | 2024-09-30 12:12 | XMS_ITS | Encounter Summary ---
Author Organization [facility] Address [facility] [place] [address] Care Team Providers Care Congressional Representative Name Role Phone Bobby Das MD Primary Care Provider [phone] Reason for Visit * Reason Comments Basal Cell Carcinoma Encounter Details Date Type Department Care Team (Late st Contact Info) Description 08/24/2015 8:30 AM EDT Procedure visit Dermatology at [facility] [address] [place] [address] Leo Solo MD [facility] [address] [place] [address] BCC (basal cell carcinoma of skin) Social [...] when the wound is well cared for. [place] drainage or slight yellowfilm on your bandage [...] the hospital number and ask for the Positive Printer Operator fractionation plant supervisor. Wound Care for Sutured Wounds You should [...] the hospital number and ask for the Positive Printer Operator fractionation plant supervisor. documented in this encounter Progress Notes * Leo Solo MD - 08/24/2015 3:25 PM EDT Operative Report Patient name: Koko Zamora : 1940 Date: 08/24/2015 Staff Surgeon: Leo Solo MD, PhD Percher I: Yolanda Rivera, Etta Burciaga, Estefania Momin, Gloria Ferrell MD Wreath Maker: Kourtney Cabrera Pre-operative diagnosis: Basal cell carcinoma Post-operative diagnosis: Basal cell carcinoma Location: Right v[facility]oo Procedure: Mohs micrographic surgery Indication for Mohs [...] 08/24/2015 Staff Surgeon: Leo Solo MD, PhD Percher I: Yolanda Rivera, Estefania Welch Clinical Diagnosis: 3.6 x 2.0 cm surgical defect secondary to Mohs microscopically controlled excision of basal cell carcinoma Location: Right [facility] Procedure: Transposition flap repair Due to the [...] unspecified documented in this encounter Care Teams Congressional Representative Relationship Specialty Start Date End Date Bobby Das MD [address] [place] [address] [place] [address] PCP - General 10/02/10 documented as of this encounter
--- OUTSIDE RECORDS SUMMARY | 2024-09-30 12:12 | XMS_ITS | Encounter Summary ---
Author Organization [facility] Address [facility] [place] [address] Care Team Providers Care Child Care Coordinator Name Role Phone Bobby Das MD Primary Care Provider [phone] Encounter Details Date Type Department Care Team (Late st Contact Info) Description 05/13/2018 Ancillary Procedure Radiology Library at [facility] [place] [address] Bobby Das MD [address] [place] [phone] Social History Tobacco Use Types Packs/Day Years [...] CT Spine (05/13/2018 12:00 AM EDT) Narrative [facility] - 06/29/2019 9:44 PM EDT This exam is auto-finalizing. It's purpose is for storage only. Bobby Das MD G FILM LIBRARY ORD ERABLES Performing Organization Address City/State/[facility] Co de Phone Number [facility] [place], [place] documented in this encounter Visit Diagnoses Not on filedocumented in this encounter Care Teams Child Care Coordinator Relationship Specialty Start Date End Date Bobby Das MD [address] [place] [address] [place] [address] PCP - General 10/02/10 documented as of this encounter
--- OUTSIDE RECORDS SUMMARY | 2024-09-30 12:12 | XMS_ITS | Encounter Summary ---
Author Organization [facility] Address [facility] [place] [address] Care Team Providers Care Hobbing Machine Operator Name Role Phone Bobby Das MD Primary Care Provider [phone] Reason for Visit * Reason Comments Basal Cell Carcinoma * Consultation (Routine) - Closed Specialty Diagnoses / Procedures Referred By Colby quezada Referred To Contact Dermatology Diagnoses REQUESTING MOHS PROCEDURE RIGHT EYEBROW FOR LESION REMOVED BUT ADDITIONAL TISSUE REMAINS Bobby Das MD [address] [place] [phone] Alvaro Llanos MD [facility] [place] [address] Referral ID Status Reason Start Date Expiration Date V isits Requested Visits Authorized [id number] Closed Consult, Test & Treat Connection Center 06/24/2018 06/24/2019 1 1 Encounter Details Date Type Department Care Team (Latest Contact Info) Description 09/23/2018 10:00 AM EST Procedure visit Dermatology at [address] [place] [address] Alvaro Llanos MD [facility] [place] [address] Basal cell carcinoma (BCC) of eyebrow [...] Llanos MD. Your wound(s) was repaired by [id number] stitchescalled a primary repair. You do not [...] until your sutures are removed. 5. Some ball holder may need to be delayed or delegated [...] as often as is recommended by your polymerization oven tender, for new skin cancers. This is once [...] it. If after hours, please call the waste water operator or [phone] and ask for the polymerization oven tender on-call. If you have any non-urgent questions or concerns, please feel free to call my office or contact me through our patient portal, [employer], at [email or web address] How to contact us during business hours Dermatology at [facility] [address]: Mohs scheduling or Mohs follow-up appointments: [phone] documented in this encounter Progress Notes * [...] Who lives with patient (i.e. spouse, children, skilled nursing/senior living)? Spouse Relevant travel history or future [...] follow up with his or her referring polymerization oven tender or other skin provider. Summary of Procedure(s): [...] Date: 09/23/2018 Staff Surgeon: Alvaro Llanos MD Nursing/Certified Medical Biller(s): Assistants: Cassy Jacobson LPN, Jolene Pretty RN, Yolanda Fraser LPN,Savanah Licea CMA Child Development Associate Teacher (s): Cristina Cisneros Amanda Isenor Pre-operative diagnosis: [...] The site was confirmed with the patient/authorized traffic workforce representative/referring physician and/or a photograph form time [...] extending to level of subcutaneous fat. Alvaro lLanos MD Repair Operative Report (Complex Linear Repair [...] eyebrow documented in this encounter Care Teams Hobbing Machine Operator Relationship Specialty Start Date End Date Bobby Das MD [address] [place] [address] [place] [phone] PCP - General 10/02/10 documented as of this encounter
--- OUTSIDE RECORDS SUMMARY | 2024-09-30 12:12 | XMS_ITS | Encounter Summary ---
Author Organization [facility] [place] [address] Care Team Providers Care Clerical Order Filler Name Role Phone Bobby Das MD Primary Care Provider [phone] Encounter Details Date Type Department Care Team (Late st Contact Info) Description 09/18/2018 Telephone Dermatology at [facility] [address] [place] [phone] Yolanda Fraser, RN Social History Tobacco Use [...] Who lives with patient (i.e. spouse, children, residential/group home)? Spouse Relevant travel history or future [...] filedocumented in this encounter Care Teams Clerical Order Filler Relationship Specialty Start Date End Date Bobby Das MD [address] [place] [address] [place] [phone] PCP - General 10/02/10 documented as of this encounter
--- OUTSIDE RECORDS SUMMARY | 2024-09-30 12:12 | XMS_ITS | Encounter Summary ---
Author Organization [facility] [place] [address] Care Team Providers Care Under Sheriff Name Role Phone Bobby Das MD Primary Care Provider [phone] Encounter Details Date Type Department Care Team (Late st Contact Info) Description 07/26/2015 External [place] [phone] Provider, Scanning Social History Tobacco Use Types [...] on filedocumented in this encounter Care Teams Under Sheriff Relationship Specialty Start Date End Date Bobby Das MD [address] [place] [address] [place] [address] PCP - General 10/02/10 documented as of this encounter
--- OUTSIDE RECORDS SUMMARY | 2024-09-30 12:12 | XMS_ITS | Encounter Summary ---
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 Chano Rebolledo MD [facility] [place] [address] [facility] Thoracic Surg [address] [place] [address] Referral ID Status Reason Start Date Expiration Date V isits Requested Visits Authorized [id number] Denied Consult, Test & Treat 12/18/2016 12/18/2017 1 0 Encounter Details Date Type Department Care Team (Late st Contact Info) Description 12/18/2016 Telephone [place] [address] Chano Rebolledo MD [facility] [place] [address] Social History Tobacco Use Types Packs/Day Years [...] I will make a heme/oncology consultation with [facility] for the patient in the meantime. documented [...] organs documented in this encounter Care Teams Surgical Brace Maker Relationship Specialty Start Date End Date Bobby Das MD [address] [place] [address] [place] [address] PCP - General 10/02/10 documented as of this encounter
--- OUTSIDE RECORDS SUMMARY | 2024-09-30 12:12 | XMS_ITS | Encounter Summary ---
Author Organization [facility] Address [facility] [place] [address] Care Team Providers Care Pot Liner Name Role Phone Bobby Das MD Primary Care Provider [phone] Reason for Visit * - Closed Specialty Diagnoses / Procedures Referred By Colby quezada Referred To Contact Procedures Film Library- Storage Only MR Spine Bobby Das MD [address] [place] [address] [place] [address] Referral ID Status Reason Start Date Expiration Date Visits Re quested Visits Authorized [id number] Closed 02/23/2021 02/23/2022 1 1 Encounter Details Date Type Department Care Team (Late st Contact Info) Description 03/16/2020 Ancillary Procedure Radiology Library at [facility] [place] [phone] Bobby Das MD [address] [place] [address] [place] [address] Social History Tobacco [...] MR Spine (03/16/2020 12:00 AM EDT) Narrative [facility] - 02/23/2021 12:56 PM EDT This exam is auto-finalizing. It's purpose is for storage only. Bobby Das MD G FILM LIBRARY ORD ERABLES [place], [place] documented in this encounter Visit Diagnoses Not on filedocumented in this encounter Care Teams Pot Liner Relationship Specialty Start Date End Date Bobby Das MD [address] [place] [address] [place] [address] PCP - General 10/02/10 documented as of this encounter
--- OUTSIDE RECORDS SUMMARY | 2024-09-30 12:12 | XMS_ITS | Encounter Summary ---
Author Organization [facility] [address] Care Team Providers Care Trust Officer Name Role Phone Bobby Das MD Primary Care Provider [phone] Reason for Referral * Diagnostic Test (Routine) - Specialty Diagnoses / Procedures Referred By Contac t Referred To Contact Radiology Diagnoses Chest pain, unspecified type Chronic abdominal pain Procedures CT Chest w Contrast CT Chest wo Contrast (Generic) Chano Rebolledo MD [facility] [place] [address] [facility] [place] [address] Referral ID Status Reason Start Date Expiration Date Visits Requested Visits Authorized [id number] Specialty Service Requested 12/13/2016 12/13/2017 1 1 * Diagnostic Test (Routine) - Closed Specialty Diagnoses / Procedures Referred By Contac t Referred To Contact Radiology Diagnoses Chest pain, unspecified type Chronic abdominal pain Procedures CT Abdomen & Pelvis w Contrast Chano Rebolledo MD [facility] [place] [address] [facility] [place] [address] Referral ID Status Reason Start Date Expiration Date V isits Requested Visits Authorized [id number] Closed Specialty Service Requested 12/13/2016 12/13/2017 1 1 Reason for Visit * Diagnostic Test (Routine) - Closed Specialty Diagnoses / Procedures Referred By Colby quezada Referred To Contact Radiology Diagnoses Chest pain, unspecified type Chronic abdominal pain Procedures CT Abdomen & Pelvis w Contrast Chano Rebolledo MD [facility] [place] [address] [facility] [place] [address] Referral ID Status Reason Start Date Expiration Date V isits Requested Visits Authorized [id number] Closed Specialty Service Requested 12/13/2016 12/13/2017 1 1 Encounter Details Date Type Department Care Team (Latest Contact Info) Description 12/17/2016 9:50 AM EST - 12/17/2016 11:59 PM EST Hospital [place] [address] Leonel Orozco MD [facility] [place] [address] Chest pain, unspecified type; Chronic [...] mLs documented in this encounter Care Teams Trust Officer Relationship Specialty Start Date End Date Bobby Das MD [address] [place] [address] [place] [address] PCP - General 10/02/10 documented as of this encounter
--- OUTSIDE RECORDS SUMMARY | 2024-09-30 12:12 | XMS_ITS | Encounter Summary ---
Author Organization [facility] [place] [address] Care Team Providers Care Technical Spec Name Role Phone Bobby Das MD Primary Care Provider [phone] Encounter Details Date Type Department Care Team (Late st Contact Info) Description 08/28/2020 Ancillary Procedure Radiology at [facility] [address] [place] [address] Amy Grimaldo MD [address] [place] [address] Social History Tobacco Use Types Packs/Day Years [...] Amy Grimaldo MD IMG FILM LIBRARY ORDERABLES [place], [place] documented in this encounter Visit Diagnoses Not on filedocumented in this encounter Care Teams Technical Spec Relationship Specialty Start Date End Date Bobby Das MD [address] [place] [address] [place] [address] PCP - General 10/02/10 documented as of this encounter
--- OUTSIDE RECORDS SUMMARY | 2024-09-30 12:12 | XMS_ITS | Encounter Summary ---
Author Organization [facility] [place] [address] Care Team Providers Care Rn Medication Name Role Phone Bobby Das MD Primary Care Provider [phone] Encounter Details Date Type Department Care Team (Late st Contact Info) Description 08/06/2020 12:05 AM EDT Ancillary Procedure Radiology at [facility] [address] [place] [phone] Amy Grimaldo MD [address] [place] [address] Social History Tobacco Use Types Packs/Day Years [...] Amy Grimaldo MD IMG FILM LIBRARY ORDERABLES [place], [place] documented in this encounter Visit Diagnoses Not on filedocumented in this encounter Care Teams Rn Medication Relationship Specialty Start Date End Date Bobby Das MD [address] [place] [address] [place] [address] PCP - General 10/02/10 documented as of this encounter
--- OUTSIDE RECORDS SUMMARY | 2024-09-30 12:12 | XMS_ITS | Encounter Summary ---
Author Organization [facility] Address [facility] [place] [address] Care Team Providers Care Welcome Center Agent Name Role Phone Bobby Das MD Primary Care Provider [phone] Reason for Visit * Reason Comments Basal Cell Carcinoma Encounter Details Date Type Department Care Team (Late st Contact Info) Description 08/08/2015 1:00 PM EDT Office Visit Dermatology at [facility] [address] [place] [address] Leo Solo MD [facility] DR JEN[place] [address] BCC (basal cell carcinoma of skin) Discharge [...] Our facility does not offer a guest [employer] network at this time. We also recommend [...] specified we require that you have a driver utility worker, as surgery can be stressful and tiring. If you are being transportedfrom a custodial or other similar facility, we request that someone stay with you during this appointment. We are located in the [facility] [place], [place]. Please referto the [facility] website for detailed driving directions ([email or web address]). When you arrive,please park in the upper parking lot. When you enter the building, go to the third floor, the cashier receptionist area is located on the left [...] If this fails, contact our office at [phone] (after 5PMplease call [phone] and ask for the Grain Drier pondman). Avoid bending over, heavy lifting (no greater [...] are taking. Our office phone number is [phone]. documented in this encounter Progress Notes * Leo Solo MD - 08/08/2015 1:50 PM EDT MOHS SURGICAL CONSULT Chief Complaint: Basal cell carcinoma History of Present Illness: Referring Physician: Dr. Zheng, [facility] (07/03/15) Tumor type: BCC Location of Skin Cancer: Right protestant Duration of Presence: 1 year Previous Treatment: [...] acute distress. Skin: Limited examination of right protestant reveals a 5 mm erythematous papule. Assessment and Plan 1. BCC, right protestant Reviewed treament options including wide local excision, [...] unspecified documented in this encounter Care Teams Welcome Center Agent Relationship Specialty Start Date End Date Bobby Das MD [address] [place] [address] [place] [address] PCP - General 10/02/10 documented as of this encounter
--- OUTSIDE RECORDS SUMMARY | 2024-09-30 12:12 | XMS_ITS | Encounter Summary ---
Author Organization [facility] [place] [address] Care Team Providers Care Room Service Bellhop Name Role Phone Bobby Das MD Primary Care Provider [phone] Encounter Details Date Type Department Care Team (Latest Contact Info) Description 07/20/2019 8:15 AM EDT Laboratory Appointment Lab [address] [place] [address] Gastrointestinal hemorrhage, unspecified gastrointestinal hemorrhage type Social [...] Cell 6.0 4.0 - 9.5 x10(3)/mc L [facility] Red Blood Cell 4.50(L) 4.58 - 5.54 x10(6)/mc L [facility] Hemoglobin 14.8 13.7 - 16.5 gm/dL [facility] Hematocrit 43.9 40.5 - 48.5 % [facility] Mean Cell Volume 97.6(H) 82.9 - 93.1 fL [facility] Mean Cell Hemoglobin 32.9(H) 27.5 - 32.1 pg [facility] Mean Cell Hemoglobin Concentration 33.7 32.0 - 35.7 gm/dL [facility] Platelet 164 145 - 357 x10(3)/ L [facility] RDW Standard Deviation 49.3(H) 36.0 - 45.0 [facility] RDW coefficient of variation 13.6 11.4 - 13.8 % [facility] Mean Platelet Volume 10.0 7.6 - 12.9 [facility] NRBC% auto 0.0 % [facility] NRBC Absolute 0.000 0.000 - 0.000 x10(3)/[facility] Blood specimen (specimen) 07/20/2019 8:18 AM EDT 07/20/2019 8:21 AM EDT Narrative Resulting Agency Comment Spec In Lab Bobby Marshall MD HEMATOLOGY ORDERABLE S [facility] [place] [address] * Prothrombin Time (07/20/2019 8:18 AM EDT) Prothrombin Time 11.3 9.4 - 12.5 sec [facility] International Normalization Ratio 1.0 [facility] Comment: An INR <2.0 indicates [...] City/State/[facility] Co de Phone Number [facility] [place] [address] documented in this encounter Visit Diagnoses Diagnosis Gastrointestinal hemorrhage, unspecified gastrointestinal hemorrhage type documented in this encounter Care Teams Room Service Bellhop Relationship Specialty Start Date End Date Bobby Das MD [address] [place] [address] [place] [address] PCP - General 10/02/10 documented as of this encounter
--- OUTSIDE RECORDS SUMMARY | 2024-09-30 12:12 | XMS_ITS | Encounter Summary ---
Author Organization [facility] [address] Care Team Providers Care Applied Research Director Name Role Phone Bobby Das MD Primary Care Provider [phone] Encounter Details Date Type Department Care Team (Late st Contact Info) Description 08/06/2020 Ancillary Procedure [facility] at [facility] [address] [place] [address] Amy Grimaldo MD [address] [place] [address] Social History Tobacco Use Types Packs/Day Years [...] Amy Grimaldo MD IMG FILM LIBRARY ORDERABLES [place], [place] documented in this encounter Visit Diagnoses Not on filedocumented in this encounter Care Teams Applied Research Director Relationship Specialty Start Date End Date Bobby Das MD [address] [place] [address] [place] [address] PCP - General 10/02/10 documented as of this encounter
--- OUTSIDE RECORDS SUMMARY | 2024-09-30 12:12 | XMS_ITS | Encounter Summary ---
Author Organization [facility] Address [facility] [place] [address] Care Team Providers Care Supervisor Welding Equipment Repairer Name Role Phone Bobby Das MD Primary Care Provider [phone] Encounter Details Date Type Department Care Team (Latest Contact Info) Description 07/25/2015 3:50 PM EDT - 07/25/2015 11:59 PM EDT Hospital [place] [address] Leo Solo MD [facility] DR JENNY [place] [address] Discharge Disposition: Home Social History Tobacco Use [...] rendered or confirmed the diagnosis(es). Accession Number: [id number] . ?Surgical Pathology DIAGNOSIS CONSULTATION CASE Outside slides labeled [id number], collection date 07/03/2015. Skin, right pentecostalism, excision: ?- ??BASAL CELL CARCINOMA, INFILTRATIVE TYPE [...] CONSULTATION CASE A - 3 slides labeled [id number], collection date 07/03/2015. [id number] Report to: [facility] Surgical Pathology Department [facility], [facility], 2nd Floor [address] [place], [place] ??[address] SPECIMEN PROCESSING [facility] ([facility]) pathology slide(s) are reviewed. ??Refer to Diagnosis and Specimen Submitted for specific case information. For the full text of the [facility] ([facility]) report(s) please refer to Non-DH Documentation Pathology in the electronic health record (eDH). 07/27/2015 3:42 PM EDT [facility] Consult Case 07/25/2015 9:51 AM EDT 07/25/2015 9:51 AM EDT Leo Solo MD PATHOLOGY/CYTOLOGY O RDERABLES [facility] [place] [phone] documented in this encounter Visit Diagnoses Not on filedocumented in this encounter Care Teams Supervisor Welding Equipment Repairer Relationship Specialty Start Date End Date Bobby Das MD [address] [place] [address] [place] [address] PCP - General 10/02/10 documented as of this encounter
--- OUTSIDE RECORDS SUMMARY | 2024-09-30 12:12 | XMS_ITS | Encounter Summary ---
Author Organization [facility] [place] [address] Care Team Providers Care Mult Au Matic Operator Name Role Phone Bobby Das MD Primary Care Provider [phone] Reason for Visit * Reason Comments Shortness of Breath Encounter Details Date Type Department Care Team (Late st Contact Info) Description 09/17/2011 10:30 AM EST Office Visit [address] [address] Torrey Giang MD [facility] [place] [address] SOB (shortness of breath) (Primary Dx) Social [...] breath documented in this encounter Care Teams Mult Au Matic Operator Relationship Specialty Start Date End Date Bobby Das MD [address] [place] [address] [place] [address] PCP - General 10/02/10 documented as of this encounter
--- OUTSIDE RECORDS SUMMARY | 2024-09-30 12:12 | XMS_ITS | Encounter Summary ---
[place] [address] Care Team Providers Care Route Delivery Service Driver Name Role Phone Bobby Das MD Primary Care Provider [phone] Encounter Details Date Type Department Care Team (Late st Contact Info) Description 12/16/2016 Telephone [place] [phone] Negra Butt, RN Social History Tobacco Use [...] on filedocumented in this encounter Care Teams Route Delivery Service Driver Relationship Specialty Start Date End Date Bobby Das MD [address] [place] [address] [place] [address] PCP - General 10/02/10 documented as of this encounter
--- OUTSIDE RECORDS SUMMARY | 2024-09-30 12:12 | XMS_ITS | Encounter Summary ---
Author Organization [facility] [place] [address] Care Team Providers Care Hazardous Substances Engineer Name Role Phone Bobby Das MD Primary Care Provider [phone] Reason for Visit * Reason Comments Skin Check Encounter Details Date Type Department Care Team (Late st Contact Info) Description 03/29/2014 1:15 PM EDT Office Visit Dermatology at [address] [phone] Cy Knight MD [address] [place] [address], [facility] DERMAT[facility] [place], [place] [phone] Basal cell carcinoma (Primary Dx); Verruca vulgaris; [...] sun over the years. He lives in [place], [place]. Physical examination reveals a pleasant, 73-year-old gentleman who has a pearly, 1-cm papule on the right lateral canthus, site A; and a pearly papule about 8 mm in diameter, site C, on the right jehovah's witness at the scalp line. At the central [...] BCCAs, right lateral canthus and right lateral jehovah's witness, sites A and C, respectively. a. After [...] keratosis documented in this encounter Care Teams Hazardous Substances Engineer Relationship Specialty Start Date End Date Bobby Das MD [address] [place] [address] [place] [address] PCP - General 10/02/10 documented as of this encounter
--- OUTSIDE RECORDS SUMMARY | 2024-09-30 12:12 | XMS_ITS | Encounter Summary ---
Author Organization [facility] Address [facility] [place] [address] Care Team Providers Care Cable Ferryboat Operator Name Role Phone Bobby Das MD Primary Care Provider [phone] Encounter Details Date Type Department Care Team (Late st Contact Info) Description 12/20/2016 Telephone [place] [phone] Kristin Schultz, RN Social History Tobacco Use [...] Oncology be sent to [facility]. Which is closer to his home. Will Follow up up with the pain clinic after appointment. documented in this encounter Plan of Treatment Not on file documented as of this encounter Visit Diagnoses Not on filedocumented in this encounter Care Teams Cable Ferryboat Operator Relationship Specialty Start Date End Date Bobby Das MD [address] [place] [address] [place] [phone] PCP - General 10/02/10 documented as of this encounter
--- OUTSIDE RECORDS SUMMARY | 2024-09-30 12:12 | XMS_ITS | Encounter Summary ---
Author Organization [facility] Address [facility] [place] [address] Care Team Providers Care Auto Carrier Driver Name Role Phone Bobby Das MD Primary Care Provider [phone] Reason for Visit * Reason Comments Shortness of Breath Encounter Details Date Type Department Care Team (Late st Contact Info) Description 06/28/2011 4:00 PM EDT Office Visit Cardiology at [address] [address] Chet Nicole MD [facility] [place] [address] SOB (shortness of breath) (Primary Dx); GIB [...] Giordano MD - 06/28/2011 4:15 PM EDT [facility] Cholesterol and Triglycerides Tests: About These [...] 60 mg/dl is considered ideal. ?? Total ewolwdmodyw-oc-QHS ratio: A ratio of 5:1 or lower is recommended. ?? LDL cholesterol: Between 100-129 mg/dL is recommended. Lower than 100 mg/dL is considered ideal. ?? VLDL cholesterol: 30 mg/dL or less is recommended. ?? Triglycerides: Lower than 150 mg/dL is recommended. Where can you learn more? Visit our health information library at [email or web address]. You can alsoview health information on [employer], your personal patient account. Log in or sign up today. Enter V788 in the search box to learn more about Cholesterol and Triglycerides Tests: About These Tests. ?? [id number] [employer]. Care instructions adapted under license by [employer]. This care instruction is for use with your licensed healthcare professional. If you have questions about a medical condition or this instruction, always ask your healthcare professional. [employer] disclaims any warranty or liability for your [...] valve prolapse) s/p repair Surgery done at [facility] in 2000 ??? Hypertriglyceridemia ??? Adhesive capsulitis of L shoulder ??? Alcohol use Medications: [place]-3 Fatty Acids-Vitamin E (FISH OIL) 1,000 mg [...] (Bezet) 438 ms MUSE SYSTEM Calculated P [place] 60 degrees MUSE SYSTEM Calculated R [place] -51 degrees MUSE SYSTEM Calculated T [place] 32 degrees MUSE SYSTEM INTERPRETATION Normal sinus [...] disorders documented in this encounter Care Teams Auto Carrier Driver Relationship Specialty Start Date End Date Bobby Das MD [address] [place] [address] [place] [address] PCP - General 10/02/10 documented as of this encounter
--- OUTSIDE RECORDS SUMMARY | 2024-09-30 12:12 | XMS_ITS | Encounter Summary ---
[place] [address] Care Team Providers Care Dowel Inserting Machine Operator Name Role Phone Bobby Das MD Primary Care Provider [phone] Encounter Details Date Type Department Care Team (Late st Contact Info) Description 10/13/2020 Notes [place] [address] Alphonso Esquivel [facility] [place] [address] Social History Tobacco Use Types Packs/Day Years [...] on filedocumented in this encounter Care Teams Dowel Inserting Machine Operator Relationship Specialty Start Date End Date Bobby Das MD [address] [place] [address] [place] [address] PCP - General 10/02/10 documented as of this encounter
--- OUTSIDE RECORDS SUMMARY | 2024-09-30 12:12 | XMS_ITS | Encounter Summary ---
Author Organization [facility] Address [facility] [place] [address] Care Team Providers Care Human Services Program Specialist Name Role Phone Bobby Das MD Primary Care Provider [phone] Reason for Visit * Reason Comments Wound Check Encounter Details Date Type Department Care Team (Late st Contact Info) Description 10/25/2015 1:30 PM EST Clinical Support Dermatology at [address] [address] Leo Solo MD [facility] [place] [address] Follow up Social History Tobacco Use Types [...] with history of basal cell carcinoma, right spiritism, s/p Mohs, repaired by transposition flap on who presents for wound check. Denies complications. States when he blinks he can feel the scar tissue. ROS: Otherwise well. No other skin complaints. Exam: General: No acute distress Skin: Limited examination of right spiritism shows a well-healed flap with hypertrophy at the edge. Assessment and Plan 1. Basal cell carcinoma, right spiritism, s/p Mohs, repaired by transposition flap Kenalog [...] up documented in this encounter Care Teams Human Services Program Specialist Relationship Specialty Start Date End Date Bobby Das MD [address] [place] [address] [place] [address] PCP - General 10/02/10 documented as of this encounter
--- OUTSIDE RECORDS SUMMARY | 2024-09-30 12:12 | XMS_ITS | Encounter Summary ---
Author Organization [facility] Address [facility] [place] [address] Care Team Providers Care Track Broom Operator Name Role Phone Bobby Das MD Primary Care Provider [phone] Encounter Details Date Type Department Care Team (Late st Contact Info) Description 06/16/2019 Ancillary Procedure Radiology Library at [facility] [place] [address] Bobby Das MD [address] [place] [phone] Social History Tobacco Use Types Packs/Day Years [...] MR Spine (06/16/2019 12:00 AM EDT) Narrative [facility] [place]NOTE 2] - 06/29/2019 9:48 PM EDT This exam is auto-finalizing. It's purpose is for storage only. Bobby Das MD G FILM LIBRARY ORD ERABLES Performing Organization Address City/State/[facility] Co de Phone Number [facility] [place], [place] documented in this encounter Visit Diagnoses Not on filedocumented in this encounter Care Teams Track Broom Operator Relationship Specialty Start Date End Date Bobby Das MD [address] [place] [address] [place] [address] PCP - General 10/02/10 documented as of this encounter
--- OUTSIDE RECORDS SUMMARY | 2024-09-30 12:12 | XMS_ITS | Encounter Summary ---
Author Organization [facility] [place] [address] Care Team Providers Care Metal Washing Machine Operator Name Role Phone Bobby Das MD Primary Care Provider [phone] Encounter Details Date Type Department Care Team (Late st Contact Info) Description 09/22/2020 Telephone [facility] [place] [phone] Negra Butt RN Social History Tobacco Use [...] filedocumented in this encounter Care Teams Metal Washing Machine Operator Relationship Specialty Start Date End Date Bobby Das MD [address] [place] [address] [place] [phone] PCP - General 10/02/10 documented as of this encounter
--- OUTSIDE RECORDS SUMMARY | 2024-09-30 12:12 | XMS_ITS | Encounter Summary ---
Author Organization Count Includes [facility] Address [facility] [place] [address] Care Team Providers Care Canvas Baster Jumpbasting Name Role Phone Bobby Das MD Primary Care Provider [phone] Reason for Visit * Reason Onset Date Comments Other 07/19/2011 Encounter Details Date Type Department Care Team (Late st Contact Info) Description 07/19/2011 Telephone Cardiology at [address] [address] Chet Nicole MD [facility] [place] [address] Other Social History Tobacco Use Types Packs/Day [...] on filedocumented in this encounter Care Teams Canvas Baster Jumpbasting Relationship Specialty Start Date End Date Bobby Das MD [address] [place] [address] [place] [phone] PCP - General 10/02/10 documented as of this encounter
--- OUTSIDE RECORDS SUMMARY | 2024-09-30 12:12 | XMS_ITS | Encounter Summary ---
Author Organization [facility] [place] [address] Care Team Providers Care Quarry Manager Name Role Phone Bobby Das MD Primary Care Provider [phone] Reason for Referral * Diagnostic Test (Routine) - Specialty Diagnoses / Procedures Referred By Contac t Referred To Contact Radiology Diagnoses Chest pain, unspecified type Chronic abdominal pain Procedures CT Chest w Contrast CT Chest wo Contrast (Generic) Chano Rebolledo MD [facility] [place] [address] [facility] [place] [address] Referral ID Status Reason Start Date Expiration Date Visits Requested Visits Authorized [id number] Specialty Service Requested 12/13/2016 12/13/2017 1 1 * Consultation (Routine) - Closed Specialty Diagnoses / Procedures Referred By Contac t Referred To Contact Neurology Diagnoses Radiculopathy of cervical region Chano Rebolledo MD [facility] [place] [address] [facility] Neurology [address] [place] [address] Referral ID Status Reason Start Date Expiration Date V isits Requested Visits Authorized [id number] Closed Test Only 12/13/2016 12/13/2017 1 1 * Diagnostic Test (Routine) - Closed Specialty Diagnoses / Procedures Referred By Contac t Referred To Contact Radiology Diagnoses Chest pain, unspecified type Chronic abdominal pain Procedures CT Abdomen & Pelvis w Chano Terry MD [facility] [place] [address] [facility] [place] [address] Referral ID Status Reason Start Date Expiration Date V isits Requested Visits Authorized [id number] Closed Specialty Service Requested 12/13/2016 12/13/2017 1 1 Reason for Visit * Reason Comments Pain Management Neck Pain Bilateral Arm Pain burning across nguyen um and ribs, both sides * Consultation (Routine) - Closed Specialty Diagnoses / Procedures Referred By Contac t Referred To Contact Pain Management Diagnoses cervical radiculopathy Bobby Das MD [address] [place] [phone] [facility] [address] [place] [phone] Referral ID Status Reason Start Date Expiration Date V isits Requested Visits Authorized [id number] Closed Consult, Test & Treat 11/22/2016 11/22/2017 1 1 Encounter Details Date Type Department Care Team (Late st Contact Info) Description 12/13/2016 1:00 PM EST Office [place] [address] Leonel Orozco MD [facility] [place] [address] Chest pain, unspecified type; Chronic abdominal pain; [...] Rebolledo MD - 12/13/2016 1:00 PM EST [facility] [place] [address] Phone: PAIN MANAGEMENT NEW PATIENT / CONSULTATION NOTE DATE OF VISIT 12/13/2016 Patient Koko Zamora 1940 REFERRING PROVIDER Bobby Das MD [address] [place] [address] [place] [address] PRIMARY CARE PROVIDER Bobby Das MD CHIEF [...] Aspirin Other (See Comments) 06/28/2011 MEDICATIONS The [place] and [place] Prescription Monitoring Program were checked & no [...] restless FUNCTIONAL /SOCIAL Lives with: 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 Follow up: -Patient will be called after results are obtained. Koko J Zamora had the opportunity to ask questions and indicated that all questions were answered to his satisfaction. Thank you for this referral, Bobby Das MD [address] [place] [address]. Chano Rebolledo MD * Leonel Orozco MD [...] at 12/17/2016 4:06 PM Leonel Orozco MD [facility] [place] ORDER[place]LES * CT Abdomen & Pelvis [...] site documented in this encounter Care Teams Quarry Manager Relationship Specialty Start Date End Date Bobby Das MD [address] [place] [address] [place] [phone] PCP - General 10/02/10 documented as of this encounter
[2024-09-30] MEDS: Lactated Ringers 250 ML 500 ML IV (12:20)
[2024-09-30] MEDS: Omnipaque 350 MG/ML 100 ML BTL IJ (12:40)
[2024-09-30] MEDS: Normal Saline - Diluent 50 ML VIAL IJ (12:41)
[2024-09-30 13:52] LABS: Bilirubin Negative (Negative); Blood Negative (Negative); Clarity Clear (Clear); Glucose 250 mg/dL (Negative); Ketones Negative (Negative); Leukocyte Esterase Negative (Negative); Nitrite Negative (Negative)
[2024-09-30 13:58] LABS: Troponin I 8 ng/L (<or=76)
[2024-09-30] MEDS: cefTRIAXone 1 GM/50 ML BAG IVPB (14:04)
[2024-09-30] MEDS: Refresh PLUS Eye Drops 0.4ml 1 EACH OU (15:06)
--- NOTE | 2024-09-30 15:31 | W.PM.HP.N ---
Date of service: 09/30/24 Time of Service: 15:31 Assessment and Plan Assessment and plan (1) Pulmonary embolism: Status: Chronic Assessment and plan: As per CTA [facility] consult recommendation for Eliquis 5mg BID- was on 2.5 mg d/t passed Hx of GIB First dose was given in the ED (2) Acute hypoxic respiratory failure: Status: Acute Assessment and plan: Likely due to the pulmonary embolism Now on 3 L of oxygen via nasal cannula for sat of 94% Will titrate as needed to maintain sat above 92% As needed nebulizer treatment (3) Pulmonary infiltrate: Status: Acute Assessment and plan: No leukocytosis, no fever Most likely d/t PE and possible infarct Will hold off ceftriaxone (4) CHF (congestive heart failure): Status: Chronic Assessment and plan: BNP 1200,no prior level, no edema , no evidence of pleural effusion or pulmonary congestion Last echo form 06/2023 LVEF 30-35%- will consult [facility] for more recent records No exacerbation (5) Diabetes mellitus: Status: Chronic Assessment and plan: Hold metformin X 48 hours Gluc AC and HS with SSI coverage (6) A-fib: Status: Inactive Assessment and plan: On telemetry On home dose of coreg Consider metoprolol if persistent hypotension On Eliquis as per PE treatment (7) Contraindication to deep vein thrombosis (DVT) prophylaxis: Status: Acute Assessment and plan: As above Discussed with Dr. Garces History of Present Illness History of Present Illness Chief Complaint: Fatigue,dyspnea on exertion Narrative: This 85-year-old male patient with a past medical history of chronic atrial fibrillation on apixaban reduced dose due to history of GI bleed, CHF, CVA, diabetes mellitus type 2, presented to the ED at [facility] for evaluation of increased fatigue over the past 2 months, sleepiness, dyspnea during his regular exercise sessions on Friday and Friday, and exercise intolerance. On arrival to the ED the patient was hypoxic and required 3 L of oxygen via nasal cannula. SBP was between 110's and low 90s. Workup in the ED was positive for pulmonary emboli as per CTA. Blood work was unremarkable. [facility] cardiology was consulted with recommendations for an increased dose of Eliquis to 5 mg twice a day. Patient had received 1 dose of ceftriaxone in the ED due to infiltrates versus home or infarct as per CTA. The hospitalist was consulted and the patient admitted to the medical surgical floor with telemetry for evaluation and management of pulmonary embolism, acute hypoxic respiratory failure. Seen in the ED the patient confirmed his full CODE STATUS. The patient denied fevers, chest pain, dizziness, cough, nausea, vomiting, melena, hematochezia, or dysuria. Review of Systems All systems reviewed & are unremarkable except as noted in HPI and below PFSH All Active Problems (Updated 09/30/24 @ 16:56 by Carola Dowd APRN) Acute hypoxic respiratory failure (Acute) Contraindication to deep vein thrombosis (DVT) prophylaxis (Acute) Diabetes mellitus (Chronic) Pulmonary infiltrate (Acute) Pulmonary embolism (Chronic) Stroke-like symptoms (Acute) Aortic stenosis, moderate (Acute) History of mitral valve repair (Acute) Cardiomyopathy (Acute) Chronic blood loss anemia (Chronic) CHF (congestive heart failure) (Chronic) CAD (coronary artery disease), [place] coronary artery (Chronic) Chronic atrial fibrillation (Chronic) Medical History Heart failure Type 2 diabetes mellitus Gastric ulcer with hemorrhage Insufficiency of tear film of both eyes Abnormal stool color Elevated PSA Malignant neoplasm of skin Nicotine dependence Malignant neoplasm of prostate HLD (hyperlipidemia) GERD (gastroesophageal reflux disease) Cervical radiculopathy Aortic stenosis Allergic rhinitis Surgical History History of tonsillectomy H/O heart surgery Family History Father Cancer Mother Cardiac pacemaker Diabetes Brother Hyperlipidemia Social History Smoking/Tobacco Use Status: Former Tobacco Use Quit Date: 05/10/22 Tobacco: How many years used: 62 Smoking risk assessment performed?: Yes Alcohol Intake: former Drug use: Never Substance use type: does not use current occupation: retired What is your relationship status?: Panel score (0-1 are the most socially isolated patients): 1 What type of physical activity do you participate in: walking Do you feel safe at home: Yes Do you feel safe in your relationship?: Yes Meds Allergies and Home Medications Allergies Allergy/AdvReac Type Severity Reaction Status Date / Time aspirin AdvReac Mild GI Bleeding Verified 09/30/24 10:48 Home Medications ?Medication ?Instructions ?Recorded ?Confirmed ?Type tamsulosin 0.4 mg capsule 1 cap PO 1XD 05/15/22 09/30/24 History calcium citrate 200 mg PO DAILY 06/23/22 09/30/24 History carboxymethylcellulose sodium 0.5 3 drp ophthalmic (eye) TID PRN Eye 06/23/22 09/30/24 History % eye drops in a dropperette Irritation (Refresh Plus) multivitamin 1 tab PO DAILY 06/23/22 09/30/24 History sildenafil 100 mg tablet 100 mg PO PRN PRN 08/15/22 09/30/24 History fluticasone propionate 50 1 spray intranasal BID PRN PRN #0 08/17/22 09/30/24 Rx mcg/actuation nasal grams spray,suspension apixaban 2.5 mg tablet (Eliquis) 2.5 mg PO BID 12/23/22 09/30/24 History carvedilol 3.125 mg tablet 3.125 mg PO BID 10/06/23 09/30/24 History metformin 500 mg tablet 500 mg PO BID 10/06/23 09/30/24 History atorvastatin 80 mg tablet 80 mg PO DAILY 09/30/24 09/30/24 History metformin 500 mg tablet,extended 500 mg PO BID 09/30/24 09/30/24 History release 24 hr Exam Narrative Exam Narrative: Constitutional The patient on stretcher, comfortable, well groomed without acute distress and has average body habitus/is obese/ is thin. HENMT: Facial structures with normal appearance Eyes: Well aligned, intact ROM Neuro:alert and oriented to self, person, place, time and situation. No neurological focal deficit, PERRLA Chest:Chest is symmetrical and normal appearance Resp: Normal respiratory pattern, speaks in full sentences, unlabored breathing, clear left lung and right upper, decreased right lower lung alfred Cardio: Atrial fibrillation controlled on potline monitor ,regular rhythm, S1, S2, no murmur, capillary refill<3 sec., bilateral radial and dorsalis pedis pulses are positive, palpable GI: Abdomen is not distended, soft and non tender, bowel sounds are present : no bladder distension Back/spine/Pelvis: No back tenderness, normal alignment Integumentary: No skin lesions or rash Extremities: strength 5/5 to bilateral lower and upper extremities Psych: RASS 0, congruent mood and normal affect. Results Labs 09/30/24 10:57 09/30/24 10:57 Labs: Laboratory Results - last 24 hr 09/30/24 09/30/24 09/30/24 10:57 10:57 11:23 WBC 5.47 RBC 3.91 L Hgb 12.2 L Hct 37.2 L MCV 95 MCH 31.2 MCHC 32.8 RDW 13.2 Plt Count 142 MPV 11.2 H Immature Gran % 0.2 Neutrophils % 59.8 Lymphocytes % 24.5 Monocytes % 11.9 Eosinophils % 2.9 Basophils % 0.7 Nucleated RBC % 0.0 Absolute Neutrophils 3.27 Absolute Lymphocytes 1.34 Absolute Monocytes 0.65 Absolute Eosinophils 0.16 Absolute Basophils 0.04 VBG Lactate Sodium 143 Potassium 4.3 Chloride 109 H Carbon Dioxide 27.8 Anion Gap 6.2 BUN 20 H Creatinine 1.0 Est GFR (CKD-EPI 2020) 75.14 Glucose 208 H Calcium 8.9 Magnesium 1.8 Total Bilirubin 0.80 AST 13 L ALT 25 Alkaline Phosphatase 102 Troponin I 12 Cancelled NT-Pro-B Natriuret Pep 1210 H Total Protein 7.4 Albumin 3.8 Urine Color Urine Clarity Urine pH Ur Specific Ferguson Urine Protein Urine Ketones Urine Blood Urine Nitrite Urine Bilirubin Urine Urobilinogen Ur Leukocyte Esterase Urine Glucose COVID-19 Source Nasopharynx SARS-CoV-2 (PCR) Negative Influenza Type A (PCR) Negative Influenza Type B (PCR) Negative RSV (PCR) Negative ABO/Rh O Positive Antibody Screen NEGATIVE 09/30/24 09/30/24 13:32 13:46 WBC RBC Hgb Hct MCV MCH MCHC RDW Plt Count MPV Immature Gran % Neutrophils % Lymphocytes % Monocytes % Eosinophils % Basophils % Nucleated RBC % Absolute Neutrophils Absolute Lymphocytes Absolute Monocytes Absolute Eosinophils Absolute Basophils VBG Lactate 1.0 Sodium Potassium Chloride Carbon Dioxide Anion Gap BUN Creatinine Est GFR (CKD-EPI 2020) Glucose Calcium Magnesium Total Bilirubin AST ALT Alkaline Phosphatase Troponin I 8 NT-Pro-B Natriuret Pep Total Protein Albumin Urine Color Yellow Urine Clarity Clear Urine pH 6.0 Ur Specific Ferguson 1.010 Urine Protein Negative Urine Ketones Negative Urine Blood Negative Urine Nitrite Negative Urine Bilirubin Negative Urine Urobilinogen 1.0 H Ur Leukocyte Esterase Negative Urine Glucose 250 H COVID-19 Source SARS-CoV-2 (PCR) Influenza Type A (PCR) Influenza Type B (PCR) RSV (PCR) ABO/Rh Antibody Screen Last Vital Signs Temp 36.4 C L 09/30/24 10:52 Pulse 67 09/30/24 14:42 Resp 32 H 09/30/24 15:00 BP 126/62 09/30/24 14:42 Pulse Ox 92 09/30/24 14:50 Time Spent Time spent with Patient: >75 minutes Time was spent: preparing to see the patient(eg.review tests), obtaining and/or reviewing separately otained hiistory, ordering medications,tests, procedures, referring, communicating with other health foster care therapist, indepentently interpreting results, counseling the patient and care coordination
[2024-09-30] MEDS: Apixaban 5 MG TAB PO (15:54)
--- OUTSIDE RECORDS SUMMARY | 2024-09-30 16:59 | XMS_ITS | Encounter Summary ---
Author Organization [facility] Address [address] [place] [address] Care Team Providers Care Care Center Manager Name Role Phone Bobby Das MD Primary Care Provider [phone] Reason for Visit * Reason Onset Date Comments Prostate Cancer 06/03/2018 Encounter Details Date Type Department Care Team (Late st Contact Info) Description 06/03/2018 Telephone [facility] Center Radiation Oncology - [address] [phone] Aries Gutierrez MD [address] [facility], Level 2 [place] [address] Prostate Cancer Social History Tobacco [...] - Delores Gutierrez III, MD - 06/03/2018 9156 EDT RADIATION ONCOLOGY I spoke with Mr. Zamora by phone today. He tells me he is unable to make it to [place] for follow-up visits with me as he [...] office if he will be in the [place] area as I would be happy to move my schedule as needed to see him for follow-up. I did strongly encourage him to continue follow-up with Dr. José and asked him to call them to arrange an appointment. He canceled his next scheduled follow-up appointment with me. Sj Gutierrez MD Radiation Oncology [phone] (pager) This note has been prepared with voice recognition software. Please excuse manager party errors. documented in this encounter Plan of Treatment Not on file documented as of this encounter Visit Diagnoses Not on filedocumented in this encounter Care Teams Care Center Manager Relationship Specialty Start Date End Date Bobby Das MD [address] [place] [address],[address] [place] [phone] PCP - General 07/06/15 documented as of this encounter
--- OUTSIDE RECORDS SUMMARY | 2024-09-30 16:59 | XMS_ITS | Encounter Summary ---
Author Organization [facility] Address [address] [place] [address] Care Team Providers Care Field Enumerator Name Role Phone Bobby Das MD Primary Care Provider [phone] Encounter Details Date Type Department Care Team (Late st Contact Info) Description 02/25/2018 Documentation Visit [facility] Radiation Oncology - [address] [place] [address] [place] [address] Lynn Vargas RN [address] [place] [address] Social History Tobacco Use Types Packs/Day Years Used Date Smoking Tobacco: Every Day Smokeless Tobacco: Never Sex and Gender Information Value Date Recorded Sex Assigned at Not on file Legal Sex Male 18:26 EDT Gender Identity Not on file Sexual Orientation Not on file documented as of this encounter Progress Notes * Lynn Vargas RN - 02/25/2018 9143 EDT Koko Zamora requested to be seen [...] filedocumented in this encounter Care Teams Field Enumerator Relationship Specialty Start Date End Date Bobby Das MD [address] [place] [address],[address] [place] [address] PCP - General 07/06/15 documented as of this encounter
--- OUTSIDE RECORDS SUMMARY | 2024-09-30 16:59 | XMS_ITS | Encounter Summary ---
Author Organization [facility] Address [address] [place] [address] Care Team Providers Care Ground Crewman Aircraft Support Name Role Phone Bobby Das MD Primary Care Provider [phone] Encounter Details Date Type Department Care Team (Late st Contact Info) Description 07/11/2019 15:31 EDT - 07/11/2019 23:[address] [facility] Radiation Oncology - [address] [phone] Aries Gutierrez MD [address] [place] [address], [address] [place] [address] Discharge Disposition: Home or Self [...] on filedocumented in this encounter Care Teams Ground Crewman Aircraft Support Relationship Specialty Start Date End Date Bobby Das MD [address] [place] [address],[address] [place] [phone] PCP - General 07/06/15 documented as of this encounter
--- OUTSIDE RECORDS SUMMARY | 2024-09-30 16:59 | XMS_ITS | Encounter Summary ---
Author Organization [facility] Address [address] [place] [address] Care Team Providers Care Logistics Service Representative Name Role Phone Bobby Das MD Primary Care Provider [phone] Reason for Visit * Reason Onset Date Comments Follow-up 02/24/2018 Appointment Related 02/24/2018 scheduled ap pt w/ nursing for Lupron injection on 04/06 Encounter Details Date Type Department Care Team (Late st Contact Info) Description 02/24/2018 Telephone [facility] [address] [place], [place] [phone] Ama Corea, RN Follow-up; Appointment Related (scheduled [...] on 04/06; pt prefers it at the [place] office * Telephone Encounter - Ama Corea, [...] on filedocumented in this encounter Care Teams Logistics Service Representative Relationship Specialty Start Date End Date Bobby Das MD [address] [place] [address],[address] [place] [phone] PCP - General 07/06/15 documented as of this encounter
--- OUTSIDE RECORDS SUMMARY | 2024-09-30 16:59 | XMS_ITS | Encounter Summary ---
Author Organization [facility] Address [address] [place] [address] Care Team Providers Care Securities Settlement Processor Name Role Phone Bobby Das MD Primary Care Provider [phone] Reason for Visit * Reason Comments Cancer Encounter Details Date Type Department Care Team (Latest Contact Info) Description 02/16/2018 Radiation Therapy Visit [facility] Radiation Oncology - [address] [address] Isela Law, DION Malignant neoplasm [...] Assessment Completed By: Isela Law RN (02/16/18 1317) Radiation Therapy: Cumulative RT Dose 3168 cGy [...] Visit Diagnoses Diagnosis Malignant neoplasm of prostate ([facility])- Primary Malignant neoplasm of prostate documented in this encounter Care Teams Securities Settlement Processor Relationship Specialty Start Date End Date Bobby Das MD [address] [place] [address] ,[address] [place] [address] PCP - General 07/06/15 documented as of this encounter
--- OUTSIDE RECORDS SUMMARY | 2024-09-30 16:59 | XMS_ITS | Encounter Summary ---
Author Organization [facility] Address [address] [place] [address] Care Team Providers Care Director Of Physiotherapy Services Name Role Phone Bobby Das MD Primary Care Provider [phone] Encounter Details Date Type Department Care Team (Late st Contact Info) Description 03/04/2018 Documentation Visit [facility] Center Radiation Oncology - [address] [id number] Aries Gutierrez MD [address] [place] [address], [address] [place] [address] Social History Tobacco Use Types [...] ONCOLOGY TREATMENT SUMMARY SITE, HISTOPATHOLOGY AND STAGE: [id number], PSA 12.8 Win[place]red score 3+4 = 7 [...] on December 02, 2017 TOLERANCE: . Koko Zamoar tolerated his radiation therapy reasonably well. He did have some increased urinary symptomatology which responded well to tamsulosin. He had mild bowel irregularity and no significant fatigue during his treatment. FOLLOW-UP: Koko Zamora will return to see me in three months. He will continue routine follow-up with Dr. José. Sj Gutierrez MD Radiation Oncology [phone] (pager) This note has been prepared with voice recognition software. Please excuse director internal communications errors. documented in this encounter Plan of Treatment Not on file documented as of this encounter Visit Diagnoses Not on filedocumented in this encounter Care Teams Director Of Physiotherapy Services Relationship Specialty Start Date End Date Bobby Das MD [address] [place] [address] ,[address] [place] [phone] PCP - General 07/06/15 documented as of this encounter
--- OUTSIDE RECORDS SUMMARY | 2024-09-30 16:59 | XMS_ITS | Encounter Summary ---
Author Organization [facility] Address [address] [place] [address] Care Team Providers Care Artificial Breeding Technician Name Role Phone Bobby Das MD Primary Care Provider Encounter Details Date Type Department Care Team (Latest Contact Info) Description 04/23/2018 15:48 EDT - 04/23/2018 23:59 EDT Hospital Encounter [address] [address] Unknown, Provider, Discharge Disposition: Home or Self [...] filedocumented in this encounter Care Teams Artificial Breeding Technician Relationship Specialty Start Date End Date Bobby Das MD [address] [place] [address],[address] [place] [address] PCP - General 07/06/15 documented as of this encounter
--- OUTSIDE RECORDS SUMMARY | 2024-09-30 16:59 | XMS_ITS | Encounter Summary ---
Author Organization [facility] Address [address] [place] [address] Care Team Providers Care Bottle Packing Machine Cleaner Name Role Phone Bobby Das MD Primary Care Provider [phone] Reason for Visit * Reason Comments Other Encounter Details Date Type Department Care Team (Late st Contact Info) Description 03/04/2019 Refill [facility] Cancer Center Radiation Oncology - [address] [phone] Aries Gutierrez MD [address] [place] [address], [address] [place] [address] Other Social History Tobacco Use [...] documented as of this encounter Care Teams Bottle Packing Machine Cleaner Relationship Specialty Start Date End Date Bobby Das MD [address] [place] [address] ,[address] [place] [address] PCP - General 07/06/15 documented as of this encounter
--- OUTSIDE RECORDS SUMMARY | 2024-09-30 16:59 | XMS_ITS | Encounter Summary ---
Author Organization [facility] Address [address] [place] [address] Care Team Providers Care Ticket Clerk Name Role Phone Bobby Das MD Primary Care Provider [phone] Reason for Visit * Reason Comments Prostate Cancer Encounter Details Date Type Department Care Team (Late st Contact Info) Description 02/10/2018 Radiation Therapy Visit [facility] Radiation Oncology - [address] [phone] Aries Gutierrez MD [address] [place] [address], [address] [place] [address] Malignant neoplasm of prostate (HCC-CMS) [...] Assessment Completed By: Felix Gutierrez MD (02/10/18 7671) Radiation Therapy: Cumulative RT Dose 2400 cGy [...] Changes: None Sj Gutierrez MD Radiation Oncology [phone]) [phone] (pager) documented in this encounter Plan of Treatment Not on file documented as of this encounter Visit Diagnoses Diagnosis Malignant neoplasm of prostate (HCC-CMS)- Primary Malignant neoplasm of prostate documented in this encounter Care Teams Ticket Clerk Relationship Specialty Start Date End Date Bobby Das MD [address] [place] [address],[address] [place] [address] PCP - General 07/06/15 documented as of this encounter
--- OUTSIDE RECORDS SUMMARY | 2024-09-30 16:59 | XMS_ITS | Encounter Summary ---
Author Organization [facility] Address [address] [place] [address] Care Team Providers Care Pig Iron Loader Name Role Phone Bobby Das MD Primary Care Provider [phone] Reason for Visit * Reason Onset Date Comments Appointment Related 03/19/2018 Encounter Details Date Type Department Care Team (Late st Contact Info) Description 03/19/2018 Telephone [facility] Urology - [facility] [address] [place] [address] Dominique Mirza, RN Appointment Related [...] I will plan to see him at [facility]. Tc to pt to advise he contact [facility] and be sure appt has [...] so, can the pt be seen at [facility] as originally suggested in 's 01/05 progress note. Will call patient to let him know if he needs to f/u with and if so, can he be seen at [facility]. documented in this encounter Plan of Treatment Not on file documented as of this encounter Visit Diagnoses Not on filedocumented in this encounter Care Teams Pig Iron Loader Relationship Specialty Start Date End Date Bobby Das MD [address] [place] [address] ,[address] [place] [address] PCP - General 07/06/15 documented as of this encounter
--- OUTSIDE RECORDS SUMMARY | 2024-09-30 16:59 | XMS_ITS | Encounter Summary ---
Author Organization [facility] Address [address] [place] [address] Care Team Providers Care Manager Ed Name Role Phone Bobby Das MD Primary Care Provider [phone] Encounter Details Date Type Department Care Team (Late st Contact Info) Description 07/16/2019 9:18 EDT - 07/16/2019 23:59 EDT Hospital Encounter [address] [address] Aries Gutierrez MD [address] [facility], [address] [place] [phone] Discharge Disposition: Auto Discharge Social History Tobacco [...] filedocumented in this encounter Care Teams Manager Ed Relationship Specialty Start Date End Date Bobby Das MD [address] [place] [address],[address] [place] [address] PCP - General 07/06/15 documented as of this encounter
--- OUTSIDE RECORDS SUMMARY | 2024-09-30 16:59 | XMS_ITS | Encounter Summary ---
Author Organization [facility] Address [address] [place] [address] Care Team Providers Care Hand Spring Former Name Role Phone Bobby Das MD Primary Care Provider [phone] Encounter Details Date Type Department Care Team (Late st Contact Info) Description 08/28/2020 Lab Requisition [facility] Pathology & Laboratory Medicine - [address] [address] Outr Resulting Lab, Provider Social History Tobacco [...] rt-PCR Result NEGATIVE Negative 08/30/2020 14:36 EDT [facility] Comment: 2019-novel Coronavirus [...] in accordance with CLIA regulations, College of [employer] (CAP) guidelines (Jan 27, 2020), and FDA guidance (Jan 08, 2020). This test is only for use under the Food and Drug Administration's Emergency Use Authorization. Swab ENTIRE NASOPHARYNX / Unknown 08/28/2020 9:58 EDT 08/28/2020 23:08 EDT us Provider Outr Resulting Lab MICROBIOLOGY - GENER AL ORDERABLES Final Result [facility] [place], [place] * COVID-19 TESTING (08/28/2020 9:58 EDT) Pathologist [facility] COVID-19 rt-PCR Result NEGATIVE Negative 08/30/2020 18:20 EDT [facility] Comment: 2019-novel Coronavirus (2019-nCoV) not detected [...] in accordance with CLIA regulations, College of [employer]ian Pathologists (CAP) guidelines (Jan 27, 2020), and FDA guidance (Jan 08, 2020). This test is only for use under the Food and Drug Administration's Emergency Use Authorization. Performing Lab [facility] 08/30/2020 18:20 EDT [facility] Swab 08/28/2020 9:58 EDT 08/28/2020 23:08 EDT us Provider Outr Resulting Lab MICROBIOLOGY - GENER AL ORDERABLES Final Result [facility] [address] [place] [address] [facility] [place], [place] documented in this encounter Visit Diagnoses Not on filedocumented in this encounter Care Teams Hand Spring Former Relationship Specialty Start Date End Date Bobby Das MD [address] [place] [address],[address] [place] [address] PCP - General 07/06/15 documented as of this encounter
--- OUTSIDE RECORDS SUMMARY | 2024-09-30 16:59 | XMS_ITS | Referral Summary ---
Author Organization [facility] Address [address] [place] [address] Care Team Providers Care Overcaster Name Role Phone Bobby Das MD Primary Care Provider [phone] Allergies Active Allergy Reactions Criticality Noted Date [...] Date Diagnosed Date Malignant neoplasm of prostate ([facility]) 018 Cancer Staging:Clinical stage from 11/19/2017:Stage [...] of Treatment Not on file Insurance MEDICARE [facility] Care Teams Overcaster Relationship Specialty Start Date End Date Bobby Das MD [address] [place] [address],[address] [place] [address] PCP - General 07/06/15
--- OUTSIDE RECORDS SUMMARY | 2024-09-30 16:59 | XMS_ITS | Encounter Summary ---
Author Organization [facility] Address [address] [place] [address] Care Team Providers Care Line Lead Name Role Phone Bobby Das MD Primary Care Provider [phone] Reason for Visit * Reason Comments Cancer Encounter Details Date Type Department Care Team (Latest Contact Info) Description 02/24/2018 Radiation Therapy Visit [facility] Radiation Oncology - [address] [address] Isela Law, DION Malignant neoplasm [...] Visit Diagnoses Diagnosis Malignant neoplasm of prostate ([facility])- Primary Malignant neoplasm of prostate Androgen deprivation therapy Encounter for therapeutic drug monitoring documented in this encounter Care Teams Line Lead Relationship Specialty Start Date End Date Bobby Das MD [address] [place] [address],[address] [place] [address] PCP - General 07/06/15 documented as of this encounter
--- OUTSIDE RECORDS SUMMARY | 2024-09-30 16:59 | XMS_ITS | Encounter Summary ---
Author Organization [facility] Address [address] [place] [address] Care Team Providers Care Inspector Structural Bonding Name Role Phone Bobby Das MD Primary Care Provider [phone] Reason for Visit * Reason Onset Date Comments Cancer 03/18/2018 Encounter Details Date Type Department Care Team (Late st Contact Info) Description 03/18/2018 Telephone [facility] Cancer Center Radiation Oncology - [address] [phone] Aries Gutierrez MD [address] [facility], [address] [place] [address] Cancer Social History Tobacco Use [...] - Delores Gutierrez III, MD - 03/18/2018 4344 EDT RADIATION ONCOLOGY Mr. Zamora called the [...] this month. Sj Gutierrez MD Radiation Oncology [phone] (office) [phone] (pager) This note has been prepared with voice recognition software. Please excuse forming tube selector errors. documented in this encounter Plan of Treatment Not on file documented as of this encounter Visit Diagnoses Not on filedocumented in this encounter Care Teams Inspector Structural Bonding Relationship Specialty Start Date End Date Bobby Das MD [address] [place] [address] ,[address] [place] [address] PCP - General 07/06/15 documented as of this encounter
--- OUTSIDE RECORDS SUMMARY | 2024-09-30 16:59 | XMS_ITS | Clinical Summary ---
Author Organization [facility] Address [address] [place] [address] Care Team Providers Care Foreign Language Professor Name Role Phone Bobby Das MD Primary Care Provider [phone] Allergies Active Allergy Reactions Criticality Noted Date [...] Date Diagnosed Date Malignant neoplasm of prostate ([facility]) 018 Cancer Staging:Clinical stage from 11/19/2017:Stage IIB(cT2a, cN0, cM0, PSA: 12.8, Grade Group: 2) - Signed by Delores Gutierrez III, MD on 11/19/2017 Medical History Medical History Date Comments Cancer ([facility]) Hyperlipidemia Family History Medical History Relation [...] COVID-19 Vaccine ( season) 2024 Insurance MEDICARE [facility] Care Teams Foreign Language Professor Relationship Specialty Start Date End Date Bobby Das MD [address] [place] [address],[address] [place] [address] PCP - General 07/06/15
--- OUTSIDE RECORDS SUMMARY | 2024-09-30 16:59 | XMS_ITS | Encounter Summary ---
Author Organization [facility] Address [address] [place] [address] Care Team Providers Care Application Tester Name Role Phone Bobby Das MD Primary Care Provider [phone] Reason for Visit * Reason Comments Prostate Cancer Follow up Encounter Details Date Type Department Care Team (Late st Contact Info) Description 07/16/2019 9:45 EDT Office Visit [facility] Cancer Center Radiation Oncology - [address] [phone] Aries Gutierrez MD [address] [place] [address], [address] [place] [address] Malignant neoplasm of prostate (HCC-CMS) [...] DATE OF SERVICE: 07/16/2019 DIAGNOSIS AND STAGE: [id number], PSA 12.8 [place] score 3+4 = 7 adenocarcinoma prostate. He [...] point. Delores stern is being evaluated at [facility] next week for possible tuboplasty. With respect [...] prepared with voice recognition software. Please excuse automatic engraver errors. documented in this encounter Plan of Treatment Not on file documented as of this encounter Visit Diagnoses Diagnosis Malignant neoplasm of prostate (HCC-CMS)- Primary Malignant neoplasm of prostate documented in this encounter Historical Medications * This list may reflect changes made after this encounter. calcium carb/vit D2/minerals (CALCIUM CITRATE + ORAL) Take by mouth. added in this encounter Care Teams Application Tester Relationship Specialty Start Date End Date Lippmann, Michael, MD [address] [place] [address],[address] [place] [address] PCP - General 07/06/15 documented as of this encounter
--- OUTSIDE RECORDS SUMMARY | 2024-09-30 16:59 | XMS_ITS | Encounter Summary ---
Author Organization [facility] Address [address] [place] [address] Care Team Providers Care Supervisor [place] Name Role Phone Bobby Das MD Primary Care Provider [phone] Encounter Details Date Type Department Care Team (Late st Contact Info) Description 04/12/2021 Lab Requisition [facility] Pathology & Laboratory Medicine - [address] [address] Outr Resulting Lab, Provider Social History Tobacco [...] 229 - 902 ng/dL 04/12/2021 22:19 EDT [facility] Blood VENOUS BLOOD / Unknown 04/12/2021 10:00 EDT 04/12/2021 21:02 EDT Narrative [facility] - 04/12/2021 22:19 EDT The results of this assay can be falsley elevated due to the consumption of Biotin. us Provider Outr Resulting Lab CHEMISTRY & BLOOD GA S ORDERABLES Final Result [facility] [address] [place] [address] documented in this encounter Visit Diagnoses Not on filedocumented in this encounter Care Teams Supervisor Stock [place] Relationship Specialty Start Date End Date Bobby Das MD [address] [place] [address],[address] [place] [address] PCP - General 07/06/15 documented as of this encounter
--- OUTSIDE RECORDS SUMMARY | 2024-09-30 16:59 | XMS_ITS | Encounter Summary ---
Author Organization [facility] Address [address] [place] [address] Care Team Providers Care Stripper Latex Name Role Phone Abby Das MD Primary Care Provider [phone] Encounter Details Date Type Department Care Team (Late st Contact Info) Description 04/22/2018 Results Only [facility] [phone] Abby Das MD [address] [place] [address],[address] [place] [address] Social History Tobacco Use Types [...] ? ETTA BAH ? Accession #: ? [id number] ? : ? 1940 (Age: 77) ??M [...] phoned to Dr. Abby Das's office. (Dr. Morris)/[facility] Document reviewed and electronically signed by: MARYCARMEN [...] (ASCP) 04/23/2018 10:08 AM End of Report [facility] 04/22/2018 8:40 EDT 04/23/2018 8:40 EDT us Abby Das MD PATHOLOGY ORDERABLES Final Re sult [facility] [address] [place] [address] documented in this encounter Visit Diagnoses Not on filedocumented in this encounter Care Teams Stripper Latex Relationship Specialty Start Date End Date Abby Das MD [address] [place] [address],[address] [place] [address] PCP - General 07/06/15 documented as of this encounter
--- OUTSIDE RECORDS SUMMARY | 2024-09-30 16:59 | XMS_ITS ---
Author Organization [facility] Address [address] [place] [address] Care Team Providers Care Supervisor Electronics Inspection Name Role Phone Bobby Das MD Primary Care Provider [phone] Active Problems Problem Noted Date Diagnosed Date Malignant neoplasm of prostate ([facility]) 018 Cancer Staging:Clinical stage from 11/19/2017:Stage IIB(cT2a, cN0, cM0, PSA: 12.8, Grade Group: 2) - Signed by Delores Gutierrez III, MD on 11/19/2017 Current Oncology Plans No current plan information found. Past Plans No past plan information found. Radiation Treatments * No radiation treatments are documented for this patient in [facility]. Treatments may have been administered in another system. Treatment Summaries Malignant neoplasm of prostate ([facility])* Prostate Cancer Treatment Summary & Care Plan Provided by Delores Gutierrez III, MD on 06/05/18 General Information Patient name Koko Zamora (home) Date of 1940 Age 77 y.o. Care Team Urology Surgeon Chino José MD Radiation Oncologist Delores Gutierrez MD Clinic Nurse Navigator Tere Adler RN Radiation Oncology Nurse Didier Law RNchief airport guide Physician Bobby Das MD Cancer Characteristics Diagnosis Prostate Cancer Date of diagnosis 10/29/2017 Age 77 Stage/TNM Malignant neoplasm of prostate ([facility]) Staging form: Prostate, AJCC 8th Edition - [...] 02/02/2018 - 02/27/2018 Number of treatments 20 Late/Copper Miner Effects Signs and symptoms of lingering or [...] about the following habits: Alcohol use The [place] [employer] Society says patients who have completed [...] per week. Tobacco cessation You can call 2-817-HGZF-NOW for help with a Quit Secondary School Registrar. You can also get more information at Frontier[employer]Changers. You may also be referred to a clinic through the cancer center. Call one of your nurses if you are ready for a referral. Future Follow Up Future appointments Continute follow-up with Dr. José Contacts and Resources PCP Bobby Das MD Genitourinary Cancer Transdisciplinary Team Navigator [facility] Work/Life Issues After Cancer: Many people [...] to discuss your concerns. You may reach Manager Drug Safety Services in the [facility] by calling: . In addition, survivors of cancer may experience issues with the areas listed below. If you have anyconcerns in these or other areas, please speak with your care team to find out how you can get helpwith them. Emotional and mental health School Fatigue Sexual functioning Fertility Other Memory or concentration loss Parenting Physical functioning Additional Resources: [facility] Oncology Support Services at the [facility]. The [facility] provides counseling, social work, and help with nutrition. The [facility] can also provide you with an [place] Cancer Society (ACS) Patient Navigator. The navigator has a wealth of information about living with cancer and cancer survivorship. Call us at [phone] or visit [email or web address]/CancerCenter for more information on line. o [place] Cancer Survivor Network (VCSN). The [place] Cancer Survivor Network (VCSN) was founded bycancer survivors to create a voice for cancer survivors in [place]. Our survivor training and support program offers local groups for survivors in the areas of [facility], the [facility], [facility] and [facility]. For more information call [phone] or visit www.Narratosn.net [facility] o Steps to Wellness. Steps to Wellness is a program for survivors of cancer. You will be offered a medical evaluation, a physical therapy evaluation, and an exercise program. For more information, contact us at . o [facility] Diabetes Prevention Program. The [facility] Diabetes Prevention Program is for people at risk for developing type 2 diabetes and includes most people who are overweight. You will learn about healthyeating and physical activities that have been proven to lower the risk of developing diabetes. The program also provides a supportive atmosphere for lifestyle changes. The program is in-person and is led by a trained Lifestyle Secondary School Registrar. The program is a 12-month program that includes 16 iaj-[id number],weekly core sessions, followed by eight gur-uqkp-npyq, monthly sessions. It is offered three times a year. Locations vary through [facility]. Please call [phone] for more information or to enroll. o [...] priorities 7) relationships For more information call [phone]. o The [facility]'s [facility] Level 3, [facility] [phone] o Visiting Nurse Association [facility] [phone] [facility] o [facility] [phone] Breast Cancer Support Group, Prostate Cancer Support Group, Wellness Program o [facility] [phone] Internet Resources o National Survivorship Resource Center http://www.cancer.org/treatment o National Coalition for Cancer Survivorship http://www.canceradvocacy.org o Journey Forward Survivorship Library http://www.journeyforward.org
--- OUTSIDE RECORDS SUMMARY | 2024-09-30 16:59 | XMS_ITS | Encounter Summary ---
Author Organization [facility] Address [address] [place] [address] Care Team Providers Care Power Plant Operator Apprentice Name Role Phone Bobby Das MD Primary Care Provider [phone] Reason for Visit * Reason Onset Date Comments Medication Management 02/16/2018 Encounter Details Date Type Department Care Team (Late st Contact Info) Description 02/16/2018 Orders Only [facility] Radiation Oncology - [facility] [address] [place], [place] [phone] Isela Law RN Social History Tobacco Use [...] filedocumented in this encounter Care Teams Power Plant Operator Apprentice Relationship Specialty Start Date End Date Bobby Das MD [address] [place] [address],[address] [place] [address] PCP - General 07/06/15 documented as of this encounter
--- OUTSIDE RECORDS SUMMARY | 2024-09-30 16:59 | XMS_ITS | Encounter Summary ---
Author Organization [facility] Address [address] [place] [address] Care Team Providers Care Pump Press Operator Name Role Phone Bobby Das MD Primary Care Provider [phone] Reason for Visit * Reason Comments Cancer Encounter Details Date Type Department Care Team (Latest Contact Info) Description 02/13/2018 Radiation Therapy Visit [facility] Radiation Oncology - [address] [address] Isela Law, DION Malignant neoplasm [...] Notes * Isela Law RN - 02/13/2018 1156 EDT On Treatment Visit Assessment: Koko Zamora is currently receiving radiation therapy treatment and is being seen today for his weekly on treatment visit. The encounter diagnosis was Malignant neoplasm of prostate (HCC-CMS). Assessment: Assessment Completed By: Isela Law RN (02/13/18 6829) Radiation Therapy: Cumulative RT Dose 3000 cGy [...] prostate documented in this encounter Care Teams Pump Press Operator Relationship Specialty Start Date End Date Bobby Das MD [address] [place] [address],[address] [place] [address] PCP - General 07/06/15 documented as of this encounter
--- OUTSIDE RECORDS SUMMARY | 2024-09-30 16:59 | XMS_ITS | Encounter Summary ---
Author Organization [facility] Address [address] [place] [address] Care Team Providers Care Uniform Force Captain Name Role Phone Bobby Das MD Primary Care Provider Encounter Details Date Type Department Care Team (Late st Contact Info) Description 10/03/2021 Lab Requisition [facility] Pathology & Laboratory Medicine - [address] [address] Bobby Das MD [address] [place] [address],[address] [place] [address] Encounter for other general examination Social History [...] explore management options, if applicable. 10/08/2021 16:40 [facility] Final Diagnosis A. SKIN OF BUTTOCK, RIGHT, EXCISION: - Dense mixed inflammation with reactive epidermal hyperplasia and focal ulceration. See comment. 10/08/2021 16:40 [facility] Diagnosis Comment The excision [...] No foreign material is identified. 10/08/2021 16:40 [facility] Attestation By the signature below, the attending physician certifies that they have 1) personally conducted a gross and/or microscopic examination of the described specimen(s), and/or personally interpreted the results of laboratory testing of the described specimen(s), and 2) personally rendered or confirmed the above diagnosis. 10/08/2021 16:40 [facility] at 1640 Microscopic Description Sections [...] or multiple additional deeper sections. 10/08/2021 16:40 [facility] Clinical History Firm lesion not healing; foreign body granuloma 10/08/2021 16:40 [facility] Gross Description A. Received in [...] Toni Giordano 10/05/2021 8:15 10/08/2021 16:40 EST [facility] Performing Lab [facility] 16:40 EST [facility] Scanned Images 10/08/2021 16:40 EST [facility] Tissue TISSUE SPECIMEN FROM SKIN / Unknown 10/03/2021 15:36 EST 10/03/2021 22:34 EST us Bobby Das MD PATHOLOGY ORDERABLES Final Re sult [facility] [address] [place] [address] documented in this encounter Visit Diagnoses Diagnosis Encounter for other general examination documented in this encounter Care Teams Uniform Force Captain Relationship Specialty Start Date End Date Bobby Das MD [address] [place] [address],[address] [place] [address] PCP - General 07/06/15 documented as of this encounter
--- OUTSIDE RECORDS SUMMARY | 2024-09-30 16:59 | XMS_ITS | Encounter Summary ---
Author Organization [facility] Address [address] [place] [address] Care Team Providers Care Director Of Perioperative Services Name Role Phone Bobby Das MD Primary Care Provider [phone] Encounter Details Date Type Department Care Team (Late st Contact Info) Description 01/08/[address] [facility] Radiation Oncology - [address] [phone] Aries Gutierrez MD [address] [place] [address], [address] [place] [address] Malignant neoplasm of prostate (HCC-CMS) [...] 0 - 6.5 ng/ml 07/16/2019 11:53 EDT [facility] Comment: Serum PSA concentration should not be interpreted as absolute evidence for the presence or absence of malignant disease. Assayed utilizing Siemens (Solar Titan) chemiluminescent technology. ??Values obtained by using different assay methods cannot be used interchangeably. Blood specimen (specimen) BLOOD SPECIMEN / Unknown 07/16/2019 9:30 EDT 07/16/2019 9:59 EDT us Aries Gutierrez MD CHEMISTRY & BLOOD GAS OR DERABLES Final Result [facility] [address] [place] [address] documented in this encounter Visit Diagnoses Diagnosis Malignant neoplasm of prostate (HCC-CMS)- Primary Malignant neoplasm of prostate documented in this encounter Care Teams Director Of Perioperative Services Relationship Specialty Start Date End Date Bobby Das MD [address] [place] [address],[address] [place] [address] PCP - General 07/06/15 documented as of this encounter
--- OUTSIDE RECORDS SUMMARY | 2024-09-30 16:59 | XMS_ITS | Encounter Summary ---
Author Organization [facility] Address [address] [place] [address] Care Team Providers Care Mortgage Processor Name Role Phone Bobby Das MD Primary Care Provider [phone] Reason for Referral * Laboratory Services (Routine) - Closed Specialty Diagnoses / Procedures [facility]erred To Contact Diagnoses Malignant neoplasm of prostate (HCC-CMS) Procedures PSA TOTAL, DIAGNOSTIC Aries Gutierrez MD Phone: tel: fax: Referral ID Status Reason Start Date Expiration Date Visits Re quested Visits Authorized [id number] Closed 07/11/2019 1 1 Encounter Details Date Type Department Care Team (Late st Contact Info) Description 01/08/2019 Documentation Visit [facility] Radiation Oncology - [address] [phone] Aries Gutierrez MD [address] [place] [address], [address] [place] [address] Malignant neoplasm of prostate (HCC-CMS) [...] prostate documented in this encounter Care Teams Mortgage Processor Relationship Specialty Start Date End Date Bobby Das MD [address] [place] [address],[address] [place] [phone] PCP - General 07/06/15 documented as of this encounter
--- OUTSIDE RECORDS SUMMARY | 2024-09-30 16:59 | XMS_ITS | Encounter Summary ---
Author Organization [facility] Address [address] [place] [address] Care Team Providers Care Booster Pump Operator Name Role Phone Bobby Das MD Primary Care Provider [phone] Reason for Visit * Reason Onset Date Comments Cancer 02/16/2018 Encounter Details Date Type Department Care Team (Late st Contact Info) Description 02/16/2018 Orders Only [facility] Radiation Oncology - [address] [phone] Isela Law, DION Malignant neoplasm of prostate [...] monitoring documented in this encounter Care Teams Booster Pump Operator Relationship Specialty Start Date End Date Bobby Das MD [address] [place] [address],[address] [place] [phone] PCP - General 07/06/15 documented as of this encounter
--- OUTSIDE RECORDS SUMMARY | 2024-09-30 16:59 | XMS_ITS | Encounter Summary ---
Author Organization [facility] Address [address] [place] [address] Care Team Providers Care Stitch Bonding Machine Drawer In Name Role Phone Bobby Das MD Primary Care Provider [phone] Reason for Visit * Reason Onset Date Comments Follow-up 03/06/2018 Encounter Details Date Type Department Care Team (Late st Contact Info) Description 03/06/2018 Telephone [facility] Radiation Oncology - [facility] [address] [place] [address] Rupal Rojas RN [address] [place] [address] Follow-up Social History Tobacco Use Types Packs/Day Years Used Date Smoking Tobacco: Every Day Smokeless Tobacco: Never Sex and Gender Information Value Date Recorded Sex Assigned at Not on file Legal Sex Male 18:26 EDT Gender Identity Not on file Sexual Orientation Not on file documented as of this encounter Miscellaneous Notes * Telephone Encounter - Rupal Rojas RN - 03/06/2018 3499 EDT I called and spoke with Koko [...] on filedocumented in this encounter Care Teams Stitch Bonding Machine Drawer In Relationship Specialty Start Date End Date Bobby Das MD [address] [place] [address],[address] [place] [address] PCP - General 07/06/15 documented as of this encounter
--- OUTSIDE RECORDS SUMMARY | 2024-09-30 16:59 | XMS_ITS | Encounter Summary ---
Author Organization [facility] Address [address] [place] [address] Care Team Providers Care Propeller Mechanic Name Role Phone Bobby Das MD Primary Care Provider [phone] Encounter Details Date Type Department Care Team (Late st Contact Info) Description 06/17/[address] [facility] [phone] Unknown, Provider, MD Social History Tobacco Use [...] on filedocumented in this encounter Care Teams Propeller Mechanic Relationship Specialty Start Date End Date Bobby Das MD [address] [place] [address],[address] [place] [address] PCP - General 07/06/15 documented as of this encounter
--- OUTSIDE RECORDS SUMMARY | 2024-09-30 16:59 | XMS_ITS | Encounter Summary ---
Author Organization [facility] Address [address] [place] [address] Care Team Providers Care Wire Walker Name Role Phone Bobby Das MD Primary Care Provider [phone] Reason for Visit * Reason Comments Cancer Encounter Details Date Type Department Care Team (Late st Contact Info) Description 02/27/2018 Radiation Therapy Visit [facility] Radiation Oncology - Main [place] [address] [place] [address] Janae Gaitan RN [address] [place] [address] Malignant neoplasm of prostate (HCC-CMS) (Primary Dx) [...] prostate documented in this encounter Care Teams Wire Walker Relationship Specialty Start Date End Date Bobby Das MD [address] [place] [address],[address] [place] [address] PCP - General 07/06/15 documented as of this encounter
--- OUTSIDE RECORDS SUMMARY | 2024-09-30 16:59 | XMS_ITS | Encounter Summary ---
Author Organization [facility] Address [address] [place] [address] Care Team Providers Care Biodiesel Production Associate Name Role Phone Bobby Das MD Primary Care Provider Reason for Visit * Reason Comments Prostate Cancer Encounter Details Date Type Department Care Team (Late st Contact Info) Description 02/23/2018 Radiation Therapy Visit [facility] Radiation Oncology - [address] [phone] Aries Gutierrez MD [address] [place] [address], [address] [place] [address] Malignant neoplasm of prostate (HCC-CMS) [...] Assessment Completed By: Felix Gutierrez MD (02/23/18 5497) Radiation Therapy: Cumulative RT Dose 4800 cGy [...] Dr. King Sj Gutierrez MD Radiation Oncology [phone] (office) [phone] (pager) documented in this encounter Plan of Treatment Not on file documented as of this encounter Visit Diagnoses Diagnosis Malignant neoplasm of prostate (HCC-CMS)- Primary Malignant neoplasm of prostate documented in this encounter Care Teams Biodiesel Production Associate Relationship Specialty Start Date End Date Bobby Das MD [address] [place] [address],[address] [place] [address] PCP - General 07/06/15 documented as of this encounter
--- OUTSIDE RECORDS SUMMARY | 2024-09-30 16:59 | XMS_ITS | Encounter Summary ---
Author Organization [facility] Address [address] [place] [address] Care Team Providers Care Ccnp Name Role Phone Bobby Das MD Primary Care Provider [phone] Reason for Visit * Reason Comments Prostate Cancer Encounter Details Date Type Department Care Team (Late st Contact Info) Description 02/17/2018 Radiation Therapy Visit [facility] Radiation Oncology - [address] [phone] Aries Gutierrez MD [address] [place] [address], [address] [place] [address] Malignant neoplasm of prostate (HCC-CMS) [...] * Delores Gutierrez III, MD - 02/17/2018 1112 [...] Changes: None Sj Gutierrez MD Radiation Oncology [phone] ([phone] (pager) documented in this encounter Plan of Treatment Not on file documented as of this encounter Visit Diagnoses Diagnosis Malignant neoplasm of prostate (HCC-CMS)- Primary Malignant neoplasm of prostate documented in this encounter Care Teams Ccnp Relationship Specialty Start Date End Date Bobby Das MD [address] [place] [address],[address] [place] [address] PCP - General 07/06/15 documented as of this encounter
--- OUTSIDE RECORDS SUMMARY | 2024-09-30 16:59 | XMS_ITS | Encounter Summary ---
Author Organization [facility] Address [address] [place] [address] Care Team Providers Care Phosphorus Processing Supervisor Name Role Phone Bobby Das MD Primary Care Provider [phone] Encounter Details Date Type Department Care Team (Late st Contact Info) Description 07/16/2019 Phlebotomy Only [facility] [address] [place] [address] Women'S Garment Fitter, Outpatient Malignant neoplasm of prostate (HCC-CMS) (Primary [...] 0 - 6.5 ng/ml 07/16/2019 11:53 EDT [facility] Comment: Serum PSA concentration should not be interpreted as absolute evidence for the presence or absence of malignant disease. Assayed utilizing Siemens ([employer]ating) chemiluminescent technology. ??Values obtained by using different assay methods cannot be used interchangeably. Blood specimen (specimen) BLOOD SPECIMEN / Unknown 07/16/2019 9:30 EDT 07/16/2019 9:59 EDT us Aries Gutierrez MD CHEMISTRY & BLOOD GAS OR DERABLES Final Result [facility] [address] [place] [address] documented in this encounter Visit Diagnoses Diagnosis Malignant neoplasm of prostate (HCC-CMS)- Primary Malignant neoplasm of prostate documented in this encounter Orders Lab Orders Without Results Count Last Ordered D ate First Ordered Date PSA TOTAL, DIAGNOSTIC 1 07/16/2019 documented in this encounter Care Teams Phosphorus Processing Supervisor Relationship Specialty Start Date End Date Bobby Das MD [address] [place] [address],[address] [place] [address] PCP - General 07/06/15 documented as of this encounter
--- OUTSIDE RECORDS SUMMARY | 2024-09-30 17:00 | XMS_ITS | Encounter Summary ---
Author Organization [facility] Address [address] [place] [address] Care Team Providers Care Casework Specialist Name Role Phone Bobby Das MD Primary Care Provider [phone] Encounter Details Date Type Department Care Team (Latest Contact Info) Description 10/29/2017 9:35 EST - 10/29/2017 23:59 EST Hospital Encounter [address] [address] Unknown, Provider, MD Discharge Disposition: Home or [...] on filedocumented in this encounter Care Teams Casework Specialist Relationship Specialty Start Date End Date Bobby Das MD [address] [place] [address],[address] [place] [address] PCP - General 07/06/15 documented as of this encounter
--- OUTSIDE RECORDS SUMMARY | 2024-09-30 17:00 | XMS_ITS | Encounter Summary ---
Author Organization [facility] Address [facility] [place] [address] Care Team Providers Care Online Marketing Strategist Name Role Phone Bobby Das MD Primary Care Provider [phone] Encounter Details Date Type Department Care Team (Late st Contact Info) Description 12/04/2023 Orders Only Cardiology at [address] [address] Christian Figueroa MD [facility] [place] [address] Atrial fibrillation, unspecified type Social History Tobacco Use Types Packs/Day Years Used Date Smoking Tobacco: Former Cigarettes 0.5 50 0 05/15/1972 - 05/15/2022 Smokeless Tobacco: Never Alcohol Use Standard Drinks/Week Comments Not Currently 42 (1 standard drink = 0.6 oz pure alcohol) Last alcohol use in May 2022 [facility] Utilities Answer Date Recorded In the past 12 months has [employer] electric, gas, oil, or water [employer] threatened to shut off services in your [...] type documented in this encounter Care Teams Online Marketing Strategist Relationship Specialty Start Date End Date Bobby Das MD [address] [place] [address] [place] [address] PCP - General 10/02/10 documented as of this encounter
--- OUTSIDE RECORDS SUMMARY | 2024-09-30 17:00 | XMS_ITS | Encounter Summary ---
Author Organization [facility] Address [address] [place] [address] Care Team Providers Care Business Services Manager Name Role Phone Unknown, Provider Primary Care Provider Unava ilable Encounter Details Date Type Department Care Team (Latest Contact Info) Description 07/03/2015 12:54 EDT - 07/03/2015 23:59 EDT Hospital Encounter [address] [address] Unknown, ProviderMD Discharge Disposition: Home or Self [...] filedocumented in this encounter Care Teams Business Services Manager Relationship Specialty Start Date End Date Unknown, ProviderMD PCP - General 07/03/15 07/05/15 documented as of this encounter
--- OUTSIDE RECORDS SUMMARY | 2024-09-30 17:00 | XMS_ITS | Encounter Summary ---
Author Organization [facility] Address [facility] [place] [address] Care Team Providers Care Chef'S Assistant Name Role Phone Bobby Das MD Primary Care Provider [phone] Encounter Details Date Type Department Care Team (Late st Contact Info) Description 11/27/2023 Telephone Dermatology at [facility] [address] [place] [address] Lina Lugo MD [facility] DR JENNY [place] [address] Social History Tobacco Use Types Packs/Day Years Used Date Smoking Tobacco: Former Cigarettes 0.5 50 0 05/15/1972 - 05/15/2022 Smokeless Tobacco: Never Alcohol Use Standard Drinks/Week Comments Not Currently 42 (1 standard drink = 0.6 oz pure alcohol) Last alcohol use in May 2022 [facility] Utilities Answer Date Recorded In the past 12 months has [employer] electric, gas, oil, or water company threatened [...] on filedocumented in this encounter Care Teams Chef'S Assistant Relationship Specialty Start Date End Date Bobby Das MD [address] [place] [address] [place] [address] PCP - General 10/02/10 documented as of this encounter
--- OUTSIDE RECORDS SUMMARY | 2024-09-30 17:00 | XMS_ITS | Encounter Summary ---
Author Organization [facility] Address [address] [place] [address] Care Team Providers Care Manager Call Center Name Role Phone Bobby Das MD Primary Care Provider Reason for Visit * Reason Comments Cancer Encounter Details Date Type Department Care Team (Latest Contact Info) Description 01/08/2018 Radiation Therapy Visit [facility] Radiation Oncology - Main [address] [address] Isela Law, DION Malignant neoplasm [...] Notes * Isela Law RN - 01/08/2018 0256 EST Koko Zamora is currently receiving radiation therapy treatment and is being seen today for his weekly on treatment visit. There were no encounter diagnoses. Assessment: Assessment Completed By: Isela Law RN (01/08/18 3059) Patient Education Topic: Method: Handout and Verbal [...] the program and get free services/meds from [facility]. 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 ) Services: [place]: No Other: Subjective Note: General: Koko and his Ursula are here for the treatment teaching session post Fiducials beingplaced. Shadi and his run a B & B in [place]. They are concerned that he might be incapacitated with fatigue and side effects while on treatment. They had planned [facility] is on treatment. We [...] documented in this encounter Care Teams Manager Call Center Relationship Specialty Start Date End Date Bobby Das MD [address] [place] [address],[address] [place] [address] PCP - General 07/06/15 documented as of this encounter
--- OUTSIDE RECORDS SUMMARY | 2024-09-30 17:00 | XMS_ITS | Encounter Summary ---
Author Organization [facility] Address [facility] [place] [address] Care Team Providers Care Gasoline Catalyst Operator Name Role Phone Bobby Das MD Primary Care Provider Encounter Details Date Type Department Care Team (Late st Contact Info) Description 11/23/2023 Interpretation Only [address] [address] Karthikeyan Rich MD [address] [place] [address] Social History Tobacco Use Types Packs/Day Years Used Date Smoking Tobacco: Former Cigarettes 0.5 50 0 05/15/1972 - 05/15/2022 Smokeless Tobacco: Never Alcohol Use Standard Drinks/Week Comments Not Currently 42 (1 standard drink = 0.6 oz pure alcohol) Last alcohol use in May 2022 [facility] Utilities Answer Date Recorded In the past 12 months has [employer] electric, gas, oil, or water company threatened [...] place to sleep or slept in a mcfp (including now)? No 11/08/2023 IPV Inpatient Questions [...] AM EST) PT CLASS I RAD ADMITDTTM [id number] RAD PT RAD MD INFO [id number]^Congius ta^Karthikeyan RAD EXAM DESC CTHEAD^CT HEAD OR [...] questions please contact the health resident care supervisor that requested your imaging first. ? Electronically signed by: Leland Gutierrez MD, [facility] ([phone]), at 11/23/2023 3:04 AM Narrative 11/23/2023 3:04 [...] patients who have questions please contactthe health resident care supervisor that requested your imaging first. Karthikeyan Rich MD IMG CT ORDERABL ES documented in this encounter Visit Diagnoses Not on filedocumented in this encounter Care Teams Gasoline Catalyst Operator Relationship Specialty Start Date End Date Bobby Das MD [address] [place] [address] [place] [address] PCP - General 10/02/10 documented as of this encounter
--- OUTSIDE RECORDS SUMMARY | 2024-09-30 17:00 | XMS_ITS | Encounter Summary ---
Author Organization [facility] Address [address] [place] [address] Care Team Providers Care Supervisor Coke Handling Name Role Phone Bobby Das MD Primary Care Provider [phone] Reason for Visit * Reason Onset Date Comments Prostate Cancer 11/20/2017 Encounter Details Date Type Department Care Team (Late st Contact Info) Description 11/20/2017 Orders Only [facility] Radiation Oncology - [address] [phone] Aries Gutierrez MD [address] [facility], [address] [place] [address] Social History Tobacco Use Types [...] filedocumented in this encounter Care Teams Supervisor Coke Handling Relationship Specialty Start Date End Date Bobby Das MD [address] [place] [address],[address] [place] [address] PCP - General 07/06/15 documented as of this encounter
--- OUTSIDE RECORDS SUMMARY | 2024-09-30 17:00 | XMS_ITS | Encounter Summary ---
Author Organization [facility] Address [facility] [place] [address] Care Team Providers Care Ocean Clam Boat Captain Name Role Phone Bobby Das MD Primary Care Provider [phone] Encounter Details Date Type Department Care Team (Late st Contact Info) Description 09/30/2024 2:00 PM EST Ancillary Procedure Radiology Library [place] [facility] [place] [address] Leandro Schwartz MD [facility] [place] [address] Arrived Social History Tobacco Use Types Packs/Day Years Used Date Smoking Tobacco: Former Cigarettes 0.5 50 0 05/15/1972 - 05/15/2022 Smokeless Tobacco: Never Alcohol Use Standard Drinks/Week Comments Not Currently 42 (1 standard drink = 0.6 oz pure alcohol) Last alcohol use in May 2022 [facility] Utilities Answer Date Recorded In the past 12 months has [employer] electric, gas, oil, or water company threatened [...] place to sleep or slept in a care home (including now)? No 11/08/2023 IPV Inpatient Questions [...] FILM LIBRARY STORAGE ONLY DX CHEST Routine 09/30/2024 1:58 PM EST documented in this encounter Results * Film Library- Storage Only DX Chest (09/30/2024 1:58 PM EST) Narrative RAD - 09/30/2024 1:58 PM EST This exam is auto-finalizing. It's purpose is for storage only. Leandro Schwartz MD IMG FILM LIBRARY ORD ERABLES [place], [place] documented in this encounter Visit Diagnoses Not on filedocumented in this encounter Care Teams Ocean Clam Boat Captain Relationship Specialty Start Date End Date Bobby Das MD [address] [place] [address] [place] [address] PCP - General 10/02/10 documented as of this encounter
--- OUTSIDE RECORDS SUMMARY | 2024-09-30 17:00 | XMS_ITS | Encounter Summary ---
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, unspecified blood vessel laterality Flavia Zaman MD [address] [place] [address] [facility] [address] [place] [phone] Referral ID Status Reason Start Date Expiration Date V isits Requested Visits Authorized [id number] Closed Consult, Test & Treat 11/26/2023 11/25/2024 1 1 Encounter Details Date Type Department Care Team (Latest Contact Info) Description 11/26/2023 Transcribe Orders eD Incoming Referrals [phone] Flavia Zaman MD [address] [place] [address] 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 No 11/08/2023 DH IPV Inpatient [...] Primary documented in this encounter Care Teams Cloth Brushing And Sueding Supervisor Relationship Specialty Start Date End Date Bobby Das MD [address] [place] [address] [place] [address] PCP - General 10/02/10 documented as of this encounter
--- OUTSIDE RECORDS SUMMARY | 2024-09-30 17:00 | XMS_ITS | Encounter Summary ---
Author Organization [facility] [place] [address] Care Team Providers Care Crusher Foreman Name Role Phone Bobby Das MD Primary Care Provider [phone] Encounter Details Date Type Department Care Team (Late st Contact Info) Description 11/23/2023 3:35 AM EST Telehealth [place] [address] Telehealth, Neurology None Social History Tobacco Use Types Packs/Day Years Used Date Smoking Tobacco: Former Cigarettes 0.5 50 0 05/15/1972 - 05/15/2022 Smokeless Tobacco: Never Alcohol Use Standard Drinks/Week Comments Not Currently 42 (1 standard drink = 0.6 oz pure alcohol) Last alcohol use in May 2022 [facility] Utilities Answer Date Recorded In the past 12 months has [employer], [employer], oil, or water [employer] threatened to shut off services in your [...] place to sleep or slept in a residential (including now)? No 11/08/2023 DH IPV Inpatient [...] on filedocumented in this encounter Care Teams Crusher Foreman Relationship Specialty Start Date End Date Bobby Das MD [address] [place] [address] [place] [phone] PCP - General 10/02/10 documented as of this encounter
--- OUTSIDE RECORDS SUMMARY | 2024-09-30 17:00 | XMS_ITS | Encounter Summary ---
Author Organization [facility] Address [address] [place] [address] Care Team Providers Care Manager Eligibility Name Role Phone Bobby Das MD Primary Care Provider [phone] Encounter Details Date Type Department Care Team (Late st Contact Info) Description 02/08/2018 8:24 EDT - 02/08/2018 23:59 EDT Hospital Encounter [facility] Radiation Oncology - [address] [address] Aries Gutierrez MD [address] [facility], [address] [place] [address] Discharge Disposition: Home or Self [...] filedocumented in this encounter Care Teams Manager Eligibility Relationship Specialty Start Date End Date Bobby Das MD [address] [place] [address],[address] [place] [phone] PCP - General 07/06/15 documented as of this encounter
--- OUTSIDE RECORDS SUMMARY | 2024-09-30 17:00 | XMS_ITS | Encounter Summary ---
Author Organization [facility] Address [address] [place] [address] Care Team Providers Care Surgical Assistant Name Role Phone Bobby Das MD Primary Care Provider [phone] Reason for Visit * Reason Onset Date Comments Prostate Cancer 11/20/2017 Encounter Details Date Type Department Care Team (Late st Contact Info) Description 11/20/2017 Telephone [facility] Radiation Oncology - [address] [phone] Areis Gutierrez MD [address] [facility], [address] [place] [address] Prostate Cancer Social History Tobacco [...] - Delores Gutierrez III, MD - 11/20/2017 8014 EST RADIATION ONCOLOGY I spoke with Mr. Zamora by phone today. His bone scan done at [facility] earlier today reveals no evidence of metastatic disease. He is eager to start therapy. I discussed his care with Dr. José. We will coordinate initiation of androgen deprivation as soon as practical. He will return for fiducial marker placement in approximately 6 weeks, anticipate we will start his treatment approximately 2 months after his first injection. Sj Gutierrez MD Radiation Oncology [phone]) [phone] (pager) This note has been prepared with voice recognition software. Please excuse assistant account manager errors. documented in this encounter Plan of Treatment Not on file documented as of this encounter Visit Diagnoses Diagnosis Malignant neoplasm of prostate (HCC-CMS)- Primary Malignant neoplasm of prostate documented in this encounter Care Teams Surgical Assistant Relationship Specialty Start Date End Date Bobby Das MD [address] [place] [address],[address] [place] [address] PCP - General 07/06/15 documented as of this encounter
--- OUTSIDE RECORDS SUMMARY | 2024-09-30 17:00 | XMS_ITS | Encounter Summary ---
Author Organization [facility] [place] [address] Care Team Providers Care Leasing Specialist Name Role Phone Bobby Das MD Primary Care Provider [phone] Encounter Details Date Type Department Care Team (Late st Contact Info) Description 09/30/2024 External [place] [phone] Social History Tobacco Use Types Packs/Day Years Used Date Smoking Tobacco: Former Cigarettes 0.5 50 0 05/15/1972 - 05/15/2022 Smokeless Tobacco: Never Alcohol Use Standard Drinks/Week Comments Not Currently 42 (1 standard drink = 0.6 oz pure alcohol) Last alcohol use in May 2022 [facility] Utilities Answer Date Recorded In the past 12 months has [employer], gas, oil, or water [employer] threatened to shut off services in your [...] Procedure Name Priority Date/Time Associated Diagnosis Comments MISC EXTERNAL CARDIOLOGY RESULT Routine 09/30/2024 1:45 PM EST documented in this encounter Results * External Cardiology Result (09/30/2024 1:45 PM EST) Anatomical Region Laterality Modality Other Historical Provider EXTERNAL CARDIOLO GY RESULT documented in this encounter Visit Diagnoses Not on filedocumented in this encounter Care Teams Leasing Specialist Relationship Specialty Start Date End Date Bobby Das MD [address] [place] [address] [place] [address] PCP - General 10/02/10 documented as of this encounter
--- OUTSIDE RECORDS SUMMARY | 2024-09-30 17:00 | XMS_ITS | Encounter Summary ---
Author Organization [facility] Address [facility] [place] [address] Care Team Providers Care Scrap Metal Processing Worker Name Role Phone Bobby Das MD Primary Care Provider [phone] Encounter Details Date Type Department Care Team (Late st Contact Info) Description 09/30/2024 [place] [address] Rosenda Monique MD [facility] [address] Social History Tobacco Use Types Packs/Day Years Used Date Smoking Tobacco: Former Cigarettes 0.5 50 0 05/15/1972 - 05/15/2022 Smokeless Tobacco: Never Alcohol Use Standard Drinks/Week Comments Not Currently 42 (1 standard drink = 0.6 oz pure alcohol) Last alcohol use in May 2022 [facility] Utilities Answer Date Recorded In the past 12 months has [employer], gas, oil, or water [employer] threatened to shut off services in your [...] place to sleep or slept in a alf (including now)? No 11/08/2023 DH IPV Inpatient [...] as of this encounter Progress Notes * Rosenda Monique MD - 09/30/2024 2:22 PM EST Images from the original note were not included. Initial Contact Date: 09/30/24 2:46 PM Referring Provider: Dr. Jones, [facility] HPI: Koko Zamora is a 84 y.o. male with history notable for permanent Afib, HTN, HLD, T2DM, CAD (s/p PBA to mLCx and PCI to OM1), HLD, HFrEF (EF 40-45% 10/2023), known LBBB, MV repair for mitral valve prolapse (2000), prior GIB (iso duodenal and colonic angiectasias and gastric ulcer), PAD, who presented to [facility] for fatigue, weakness, exercise intolerance, and disorientation. Additionally, he reports intermittent chest discomfort for two months, which was thought to be due to GERD in the setting of recently diagnosed gastric ulcer. In the ED he was initially hemodynamically stable and afebrile. Blood pressures have been 95-110 systolic predominantly with an isolated value of 70 systolic for which the patient received 250 cc bolus. Clinically, he is reported as being slightly volume up. While in the ED, he was additionally noted to be hypoxic (although initially was saturating well on room air) so was placed on 2L with improvement. However given this finding a CTA chest was done whichshowed non-occlusive thrombus in the distal right lower lobe segmental pulmonary artery. Medications: -Apixaban 2.5 BID -Carvedilol 3.125 bid -Atorvastatin 80 -Metformin -Sildenafil prn Vitals: BP 98/50, HR 79, SpO2 92% on 2L NC, RR 17, T 36.4 Exam: Per provider, patient appears mildly volume-up. Pertinent Diagnostic Findings: -Troponin negative x2 -BNP 1210 -Hgb 12.2 -WBC 5 -Lactate 1 -BUN 20 -Creatinine 1.0 Past cardiac studies: TTE 11/06/23 Mildly to moderately reduced left ventricular systolic function. LVEF 40-45%. Normal right ventricular systolic function Sclerotic aortic valve with moderate stenosis and mild insufficiency Mild valve repair with mild stenosis Severe left and moderate right atrial enlargement Mildly dilated aortic root and proximal ascending aorta (both 4.0 cm) EKG: atrial fibrillation, left bundle branch block Catheterization 05/20/2022: angioplasty of 70% mid left circumflex lesion, PCI to OM1, residual 90% distal RCA disease OSH Interventions: -250cc bolus -Ceftriaxone Assessment: Koko Zamora is a 84 y.o. male with history notable for permanent Afib, HTN, HLD, T2DM, CAD (s/p PBA to mLCx and PCI to OM1), HLD, HFrEF (EF 40-45% 10/2023), known LBBB, MV repair for mitral valve prolpase (2000), prior GIB (iso duodenal and colonic angiectasias and gastric ulcer), PAD, who presented to [facility] for fatigue, weakness, exercise intolerance, and disorientation. With regard to his hypotension I/s/o of PE, it seems he had one isolated low blood pressure readingbut otherwise has remained normotensive. His heart rate is normal and he is on minimal oxygen. As he is a 50 pack year smoker (quitting in 2021), my suspicion is his oxygen requirement should be set lower, 88-92%. It seems to be that the isolated systolic BP of 70 was aberrant as he has not had repeat low values before or after this. Furthermore, his normal heart rate and oxygenation coupled withnormal lactate and troponin point away from obstructive physiology due to his PE (particularly given distal, and minimal thrombus burden). He is currently on apixaban 2.5mg BID for Afib, which shouldbe increased, however given ?gastric ulcer identified recently and history of GIBs, and given he has already been on low dose eliquis, I think he does not need loading dose with 10 bid and can simplybe transitioned to 5mg bid. Additionally, carvedilol should be exchanged for metoprolol given low-normal blood pressures. With regard to his chest discomfort, it seems atypical and I/s/o recently diagnosed gastric ulcer this may be more likely then ischemic pain. He does have residual RCA disease from his prior catheterization in 2021, however normal serial troponin values currently. ECG shows a left bundle pattern which I cannot see record of here previously (prior ECG from 2022 showed a left anterior fascicular block), so he may have had progression in his underlying conduction system disease. If echocardiogram shows further reduced ejection fraction or new wall motion abnormalities then they can call back to discuss transfer. Recommendations: -Recommend initiating apixaban 5mg BID in lieu of current 2.5mg BID dosing -Patient does not require advanced therapies for PE at this time -Please obtain formal echocardiogram, notify us of drop in EF or new WMAs -Continue to trend troponin and obtain serial ECGs -Stop carvedilol 3.125mg BID and start metoprolol succinate 25mg daily given low-normal blood pressures -Recommend admission to [facility] medicine, if patient has decompensation or new abnormalities on echocardiogram then provider advised to call back and we can certain review transfer to [facility] Access data collection 1. provider completing request: Rosenda Monique MD 2. Requesting location: [facility] 3. [id number] consult duration: 10 min 4. Total consult duration (above plus EHR review, image review, discussion with other clinicians, documentation, etc.): 30 min 5. Consult for: [x] medical advice [] operational/administrative consult (for example--retrieve information from eD or need to schedule/change an appointment, etc) 6. Was this consult in lieu of transfer: No 7. Why did the hospital need a consult at this time: [] No access to cardiology at their hospital [] Cardiology available some of the time but now now [] Cardiology is available but this case was beyond their local level of comfort [x] I don't know Above recommendations were based on my discussion with Dr. Jones; I have not personally interviewed or examined this patient. This does not represent a formal consultation as it is not staffed with an attending Marine Pipefitter Helper. Advised to call the transfer center back with any changes in the patient condition. documented in this encounter Plan of Treatment Not on file documented as of this encounter Visit Diagnoses Not on filedocumented in this encounter Care Teams Scrap Metal Processing Worker Relationship Specialty Start Date End Date Bobby Das MD [address] [place] [address] [place] [address] PCP - General 10/02/10 documented as of this encounter
--- OUTSIDE RECORDS SUMMARY | 2024-09-30 17:00 | XMS_ITS | Encounter Summary ---
Author Organization [facility] Address [address] [place] [address] Care Team Providers Care Final Assembler Name Role Phone Bobby Das MD Primary Care Provider [phone] Reason for Visit * Reason Comments Cancer Encounter Details Date Type Department Care Team (Latest Contact Info) Description 01/08/2018 Radiation Therapy Visit [facility] Radiation Oncology - [address] [address] Isela Law, RN Malignant neoplasm [...] prostate documented in this encounter Care Teams Final Assembler Relationship Specialty Start Date End Date Bobby Das MD [address] [place] [address] ,[address] [place] [address] PCP - General 07/06/15 documented as of this encounter
--- OUTSIDE RECORDS SUMMARY | 2024-09-30 17:00 | XMS_ITS | Encounter Summary ---
[facility] Address [facility] [place] [address] Care Team Providers Care Manager Corporate Marketing Name Role Phone Bobby Das MD Primary Care Provider [phone] Encounter Details Date Type Department Care Team (Late st Contact Info) Description 09/30/2024 2:05 PM EST Ancillary Procedure Radiology Library at [facility] [place] [address] Leandro Schwartz MD [facility] [place] [address] Arrived Social History Tobacco Use Types Packs/Day Years Used Date Smoking Tobacco: Former Cigarettes 0.5 50 0 05/15/1972 - 05/15/2022 Smokeless Tobacco: Never Alcohol Use Standard Drinks/Week Comments Not Currently 42 (1 standard drink = 0.6 oz pure alcohol) Last alcohol use in May 2022 [facility] Utilities Answer Date Recorded In the past 12 months has [employer] electric, gas, oil, or water company threatened [...] in a fci (including now)? No 11/08/2023 IPV Inpatient Questions [...] Diagnosis Comments FILM LIBRARY STORAGE ONLY CT CHEST Routine 09/30/2024 2:01 PM EST documented in this encounter Results * Film Library- Storage Only CT Chest (09/30/2024 2:01 PM EST) Narrative [facility] - 09/30/2024 2:01 PM EST This exam is auto-finalizing. It's purpose is for storage only. Leandro Schwartz MD IMG FILM LIBRARY ORD ERABLES [place], [place] documented in this encounter Visit Diagnoses Not on filedocumented in this encounter Care Teams Manager Corporate Marketing Relationship Specialty Start Date End Date Bobby Das MD [address] [place] [address] [place] [address] PCP - General 10/02/10 documented as of this encounter
--- OUTSIDE RECORDS SUMMARY | 2024-09-30 17:00 | XMS_ITS | Encounter Summary ---
Author Organization [facility] [place] [address] Care Team Providers Care Associate Manager Affiliate Marketing Name Role Phone Bobby Das MD Primary Care Provider [phone] Encounter Details Date Type Department Care Team (Late st Contact Info) Description 12/08/2023 Telephone Cardiology at [address] [phone] Ama Leblanc Social History Tobacco Use Types Packs/Day Years Used Date Smoking Tobacco: Former Cigarettes 0.5 50 0 05/15/1972 - 05/15/2022 Smokeless Tobacco: Never Alcohol Use Standard Drinks/Week Comments Not Currently 42 (1 standard drink = 0.6 oz pure alcohol) Last alcohol use in May 2022 [facility] Utilities Answer Date Recorded In the past 12 months has [employer], gas, oil, or water [employer] threatened to shut off services in your [...] in a mcfp (including now)? No 11/08/2023 DH IPV Inpatient [...] filedocumented in this encounter Care Teams Associate Manager Affiliate Marketing Relationship Specialty Start Date End Date Bobby Das MD [address] [place] [address] [place] [phone] PCP - General 10/02/10 documented as of this encounter
--- OUTSIDE RECORDS SUMMARY | 2024-09-30 17:00 | XMS_ITS | Clinical Summary ---
Author Organization [facility] Address [facility] [place] [address] Care Team Providers Care Outside Sales Advertising Executive Name Role Phone Bobby Das MD Primary Care Provider [phone] Allergies Active Allergy Reactions Criticality Noted Date [...] daily. Active fluticasone propionate (FLONASE) 50 mcg/actuation Myrtle, Suspension 1 spray by Each Nare route [...] bleed 12/08/2022 Coronary artery disease invo lving kasaan coronary artery of kasaan heart without angina pectoris 06/13/2022 Overview (06/13/2022): [...] fraction this is a borderline indication for PLANER CHAIN OFFBEARER-D. I am going to set up an [...] therapy possibly including AV node ablation and PLANER CHAIN OFFBEARER-D. Permanent atrial fibrillation 06/13/2022 Assessment & Plan [...] for consideration of AV node ablation and PLANER CHAIN OFFBEARER-D Limb ischemia 05/15/2022 History of basal cell carcinoma 05/31/2014 Basal cell carcinoma 03/29/2014 Verruca vulgaris 03/29/2014 AK (actinic keratosis) 03/29/2014 GIB (gastrointestinal bleeding) 06/28/2011 Overview (08/09/2012): Secondary to 3-4 ASA/day, required admission and blood transfusion MVP (mitral valve prolapse) s/p repair 1 Overview (08/09/2012): Surgery done at [facility] in 2000 Hypertriglyceridemia 06/28/2011 Adhesive capsulitis of L shoulder 06/28/2011 Alcohol use 06/28/2011 Encounters Date Type Department Care Team Description 09/30/2024 2:05 PM EST Ancillary Procedure Radiology Library at [facility] NAOMY Kaplan [id number] Leandro Schwartz MD Arrived 09/30/2024 2:00 PM EST Ancillary Procedure Radiology Library at [facility] NAOMY [place] [id number] Leandro Schwartz MD Arrived 09/30/2024 Notes Only Cardiology [facility] NAOMY Vaughan [id number] Rosenda Monique MD 09/30/2024 External Results Administration [facility] [place] [address] from Last 3 Months Social History Tobacco Use Types Packs/Day Years Used Date Smoking Tobacco: Former Cigarettes 0.5 50 0 05/15/1972 - 05/15/2022 Smokeless Tobacco: Never Tobacco Cessation:Counseling Given: Not Answered Alcohol Use Standard Drinks/Week Comments Not Currently 42 (1 standard drink = 0.6 oz pure alcohol) Last alcohol use in May 2022 [facility] Utilities Answer Date Recorded In the [...] CT CHEST Routine 09/30/2024 2:01 PM EST FILM LIBRARY STORAGE ONLY DX CHEST Routine 09/30/2024 1:58 PM EST MISC EXTERNAL CARDIOLOGY RESULT Routine 09/30/2024 1:45 PM EST COLONOSCOPY Routine 12/09/2022 11:22 AM EST from Last 3 Months or Most Recently Relevant to Health Maintenance Results * Film Library- Storage Only CT Chest (09/30/2024 2:01 PM EST) Narrative [facility] [place] 09/30/2024 2:01 PM EST This exam is auto-finalizing. It's purpose is for storage only. Leandro Schwartz MD [facility] FILM PF Management Services ORD [facility] Performing Organization Address [facility] de Phone Number [place], [place] * Film Library- Storage Only DX Chest (09/30/2024 1:58 PM EST) Narrative [facility] [place] - 09/30/2024 1:58 PM EST This exam is auto-finalizing. It's purpose is for storage only. Leandro Schwartz MD [facility] [employer] Performing Organization Address [facility] de Phone Number [place], [place] * External Cardiology Result (09/30/2024 1:45 PM EST) Anatomical Region Laterality Modality Other Historical Provider EXTERNAL CARDIOLO GY RESULT * COLONOSCOPY (12/09/2022 11:22 AM EST) [facility] Signature COLONOSCOPY [facility] Endoscopy Procedure Date: 12/09/2022 11:22 AM ? Patient Name: Koko Zamora ? Date of : 1940 ? Age: 82 ? Order #: [id number] ? Instrument Name: ? Procedure: ? Colonoscopy Indications: ? Hematochezia Providers: ? Giovani Ponce, Alan August, Referring : ?Stu Padilla Medicines: ? Propofol [...] Status decision made by: Patient Care Teams Outside Sales Advertising Executive Relationship Specialty Start Date End Date Bobby Das MD [address] [place] [address] [place] [address] PCP - General 10/02/10
--- OUTSIDE RECORDS SUMMARY | 2024-09-30 17:00 | XMS_ITS | Encounter Summary ---
Author Organization [facility] Address [address] [place] [address] Care Team Providers Care Roller Engraver Name Role Phone Bobby Das MD Primary Care Provider [phone] Reason for Visit * Reason Comments Cancer Encounter Details Date Type Department Care Team (Late st Contact Info) Description 02/06/2018 Radiation Therapy Visit [facility] Radiation Oncology - [facility] [address] [place] [address] Lynn Vargas RN [address] [place] [address] Malignant neoplasm of prostate (HCC-CMS) (Primary Dx) [...] Assessment Completed By: Lynn Vargas RN (02/06/18 6204) Radiation Therapy: Cumulative RT Dose 1500 cGy [...] prostate documented in this encounter Care Teams Roller Engraver Relationship Specialty Start Date End Date Bobby Das MD [address] [place] [address] ,[address] [place] [address] PCP - General 07/06/15 documented as of this encounter
--- OUTSIDE RECORDS SUMMARY | 2024-09-30 17:00 | XMS_ITS | Encounter Summary ---
Author Organization [facility] Address [address] [place] [address] Care Team Providers Care Folder And Notcher Name Role Phone Bobby Das MD Primary Care Provider [phone] Encounter Details Date Type Department Care Team (Late st Contact Info) Description 01/08/2018 8:35 EST - 01/08/2018 23:59 EST Hospital Encounter [facility] Radiation Oncology - [address] [address] Aries Gutierrez MD [address] [facility], [address] [place] [address] Discharge Disposition: Home or Self [...] filedocumented in this encounter Care Teams Folder And Notcher Relationship Specialty Start Date End Date Bobby Das MD [address] [place] [address],[address] [place] [address] PCP - General 07/06/15 documented as of this encounter
--- OUTSIDE RECORDS SUMMARY | 2024-09-30 17:00 | XMS_ITS ---
Author Organization [facility] Address [facility] [place] [address] Care Team Providers Care Police Manager Name Role Phone Bobby Das MD [...] bleed 12/08/2022 Coronary artery disease invo lving [place] coronary artery of [place] heart without angina pectoris 06/13/2022 Overview (06/13/2022): [...] fraction this is a borderline indication for UPSETTER HELPER-D. I am going to set up an [...] therapy possibly including AV node ablation and UPSETTER HELPER-D. Permanent atrial fibrillation 06/13/2022 Assessment & Plan [...] for consideration of AV node ablation and UPSETTER HELPER-D Limb ischemia 05/15/2022 History of basal cell carcinoma 05/31/2014 Basal cell carcinoma 03/29/2014 Verruca vulgaris 03/29/2014 AK (actinic keratosis) 03/29/2014 GIB (gastrointestinal bleeding) 06/28/2011 Overview (08/09/2012): Secondary to 3-4 ASA/day, required admission and blood transfusion MVP (mitral valve prolapse) s/p repair 1 Overview (08/09/2012): Surgery done at [facility] in 2000 Hypertriglyceridemia 06/28/2011 Adhesive capsulitis of L shoulder 06/28/2011 Alcohol use 06/28/2011 Current Oncology Plans No current plan information found. Past Plans No past plan information found. Radiation Treatments * No radiation treatments are documented for this patient in [facility]. Treatments may have been administered in another system. Lifetime Dose Tracking * Chemical Lifetime Dose Automatic Entry Manual Entr y DLP (Dose Length Product) 1,085 mGy-cm 1,085 mGy-cm 0 mGy-cm CTDI (CT Dose Index) Min 0.79 mGy 0.79 mGy 0 m Gy CTDI (CT Dose Index) Max 9.35 mGy 9.35 mGy 0 m Gy
--- OUTSIDE RECORDS SUMMARY | 2024-09-30 17:00 | XMS_ITS | Encounter Summary ---
Author Organization [facility] Address [address] [place] [address] Care Team Providers Care Batch Records Clerk Name Role Phone Bobby Das MD Primary Care Provider [phone] Reason for Visit * Reason Comments Prostate Cancer Encounter Details Date Type Department Care Team (Late st Contact Info) Description 02/03/2018 Radiation Therapy Visit [facility] Radiation Oncology - [address] [id number] Aries Gutierrez MD [address] [place] [address], [address] [place] [address] Malignant neoplasm of prostate (HCC-CMS) [...] * Delores Gutierrez III, MD - 02/03/2018 5497 EDT On Treatment Visit Assessment: Koko Zamora is currently receiving radiation therapy treatment and is being seen today for his weekly on treatment visit. The encounter diagnosis was Malignant neoplasm of prostate (CMS-HCC). Assessment: Assessment Completed By: Felix Gutierrez MD (02/03/18 8012) Radiation Therapy: Cumulative RT Dose 600 cGy [...] Changes: None Sj Gutierrez MD Radiation Oncology [phone] (office) [phone] (pager) documented in this encounter Plan of [...] documented as of this encounter Care Teams Batch Records Clerk Relationship Specialty Start Date End Date Bobby Das MD [address] [place] [address],[address] [place] [address] PCP - General 07/06/15 documented as of this encounter
--- OUTSIDE RECORDS SUMMARY | 2024-09-30 17:00 | XMS_ITS | Encounter Summary ---
Author Organization [facility] Address [address] [place] [address] Care Team Providers Care Rn Perinatal Name Role Phone Bobby Das MD Primary Care Provider [phone] Encounter Details Date Type Department Care Team (Late st Contact Info) Description 01/16/2018 Documentation Visit [facility] Radiation Oncology - [facility] [address] [place] [address] Santhosh Cosby Social History Tobacco Use Types Packs/Day Years Used Date Smoking Tobacco: Every Day Smokeless Tobacco: Never Sex and Gender Information Value Date Recorded Sex Assigned at Not on file Legal Sex Male 18:26 EDT Gender Identity Not on file Sexual Orientation Not on file documented as of this encounter Progress Notes * Santhosh Cosby - 01/16/2018 8688 EST SOCIAL WORK ASSESSMENT: Amount of Distress: [...] Prostate Cancer Living Arrangements: Pt lives in [place], [place] with his . They operate a [...] social work as needed. ASH Antonio phone [phone] pager [phone] documented in this encounter Plan of Treatment Not on file documented as of this encounter Visit Diagnoses Not on filedocumented in this encounter Care Teams Rn Perinatal Relationship Specialty Start Date End Date Bobby Das MD [address] [place] [address],[address] [place] [address] PCP - General 07/06/15 documented as of this encounter
--- OUTSIDE RECORDS SUMMARY | 2024-09-30 17:00 | XMS_ITS | Encounter Summary ---
Author Organization [facility] Address [address] [place] [address] Care Team Providers Care Supervisor Delivery Department Name Role Phone Unknown, Provider MD Primary Care Provider Unava ilable Encounter Details Date Type Department Care Team (Late st Contact Info) Description 07/03/2015 Results Only [facility] [phone] Abby Das MD [address] [place] [address],[address] [place] [address] Social History Tobacco Use Types [...] ? ETTA BAH ? Accession #: ? [id number] ? : ? 1940 (Age: 74) ??M ? Collect Date: ? 07/03/2015 ? Location: ? [facility] ? Receive Date: ? 07/04/2015 ? Provider: ABBY DAS MD Copy to: ? Final Pathologic Diagnosis: SKIN OF RASTAFARIAN, RIGHT, EXCISION: - Basal cell carcinoma, infiltrative type. ??See comment. - Perineural invasion identified. - Margins of excision positive. ??- Lesion extends to peripheral and deep margins of excision specimen. Comment: These results were phoned to Dr. Das's office. ??(Dr. Morris)/[facility] Document reviewed and electronically signed by: MARYCARMEN MORRIS MD Report ??Date: 07/05/2015 14:52 By the signature above, the attending physician certifies that he/she has personally conducted a gross and/or microscopic examination of the described specimens and rendered or confirmed the above diagnosis. Specimen(s) Received: [facility] Clinical History: Basal cell carcinoma reexcision Gross [...] Arguello ? 07/04/2015 10:[address] [facility] 07/03/2015 8:54 EDT 07/04/2015 8:54 EDT us Abby Das MD PATHOLOGY ORDERABLES Final Re sult [facility] [address] [place] [address] documented in this encounter Visit Diagnoses Not on filedocumented in this encounter Care Teams Supervisor Delivery Department Relationship Specialty Start Date End Date Unknown, Provider, PCP - General 07/03/15 07/05/15 documented as of this encounter
--- OUTSIDE RECORDS SUMMARY | 2024-09-30 17:00 | XMS_ITS | Encounter Summary ---
Author Organization [facility] Address [address] [place] [address] Care Team Providers Care Biometrics Instructor Name Role Phone Bobby Das MD Primary Care Provider [phone] Reason for Visit * Reason Comments Follow-up Injection Encounter Details Date Type Department Care Team (Late st Contact Info) Description 01/05/2018 9:30 EST Office Visit [facility] Urology - [address] [phone] Chino José MD [address] [place] [address], [address] [place] [address] Malignant neoplasm of prostate (HCC-CMS) [...] 10:00 * Chino José MD - 01/05/2018 2776 EST Chief Complaint: Chief Complaint Patient presents with ??? Follow-up Injection HPI: Koko is a 77 y.o. male with prostate cancer. Grant presented with an elevated PSA to 12.8 and a palpable nodule and on biopsy had 2 out of 12 cores positive for [place] 3+3 and Winifred 3+4 prostate cancer. T2a. [...] found for: PSA Impression: Patient with T2a, [place] 3+4 prostate cancer associated with a PSA of 12.8. He presents today for a 3 month Lupron injection and we will proceed with radiation therapy with Dr. Gutierrez starting next month. Plan: Follow up with Dr. Gutierrez this week See me at [facility] after radiation therapy is complete with a [...] 01/05/2018 documented in this encounter Care Teams Biometrics Instructor Relationship Specialty Start Date End Date Bobby Das MD [address] [place] [address] ,[address] [place] [address] PCP - General 07/06/15 documented as of this encounter
--- OUTSIDE RECORDS SUMMARY | 2024-09-30 17:00 | XMS_ITS | Encounter Summary ---
Author Organization [facility] Address [address] [place] [address] Care Team Providers Care Human Relations Teacher Name Role Phone Bobby Das MD Primary Care Provider [phone] Encounter Details Date Type Department Care Team (Late st Contact Info) Description 10/29/2017 Results Only [facility] Urology - [address] [address] Chino José MD [address] [place] [address], [address] [place] [address] Social History Tobacco Use Types [...] ? ETTA BAH ? Accession #: ? [id number] ? : ? 1940 (Age: 77) ??M [...] to Prognostic Grade Group V (least favorable). Malta score less than or equal to 6: Prognostic Grade Group I Malta score 3+4=7: Prognostic Grade Group II Winifred score 4+3=7: Prognostic Grade Group III Malta score 8: Prognostic Grade Group IV Winifred score 9-10: Prognostic Grade Group V References for Prognostic Grade Groups: J Clin Hercules 2012;30:8164-3234 Joey CASTAÑEDA. The Malta Grading System (A Complete Guide for Pathologists and Clinicians), LWW, 2013 Serg PM, Sumaya PW, Edward AW, Joey CASTAÑEDA. Prognostic Malta Grade Grouping: Data based on the modified [...] ??Histologic grade: ?3 + 3 ?- ??Primary Malta pattern: ? Grade 3 ?- ??Secondary Winifred pattern: ? Grade 3 ?- ??Total Malta score: ?6 ? - ??Tumor contiguity: ? [...] Ali 10/30/2017 9:13 AM End of Report [facility] 10/29/2017 8:21 EST 10/30/2017 8:21 EST us Chino José MD PATHOLOGY ORDERABLES Final Re sult [facility] [address] [place] [address] documented in this encounter Visit Diagnoses Not on filedocumented in this encounter Care Teams Human Relations Teacher Relationship Specialty Start Date End Date Bobby Das MD [address] [place] [address],[address] [place] [address] PCP - General 07/06/15 documented as of this encounter
--- OUTSIDE RECORDS SUMMARY | 2024-09-30 17:00 | XMS_ITS | Encounter Summary ---
Author Organization [facility] Address [address] [place] [address] Care Team Providers Care Milker Machine Name Role Phone Bobby Das MD Primary Care Provider [phone] Reason for Visit * Reason Comments Follow-up Encounter Details Date Type Department Care Team (Late st Contact Info) Description 12/02/2017 14:45 EST Office Visit [facility] Urology - [address] [phone] Chino José MD [address] [facility], [address] [place] [address] Malignant neoplasm of prostate (HCC-CMS) [...] Notes * Emilee Kaba RN - 12/02/2017 7912 EST Patient has been advised that hormonal [...] libido ( desire to have sex ).Some care home hormonal therapy is associated with the loss [...] cancer. I originally saw the patient and [facility] and diagnosed him with Winifred 3+4 prostate cancer associated with a PSA of 12.8. He underwent a bone scan for staging that came back negative for metastatic disease. He is seeing me today [facility] for a Lupron injection. He started [...] 12/02/2017 documented in this encounter Care Teams Milker Machine Relationship Specialty Start Date End Date Bobby Das MD [address] [place] [address],[address] [place] [address] PCP - General 07/06/15 documented as of this encounter
--- OUTSIDE RECORDS SUMMARY | 2024-09-30 17:00 | XMS_ITS | Encounter Summary ---
Author Organization [facility] Address [address] [place] [address] Care Team Providers Care Travel Consultant Name Role Phone Bobby Das MD Primary Care Provider [phone] Reason for Visit * Reason Onset Date Comments Diagnostic Imaging Report 11/25/2017 Encounter Details Date Type Department Care Team (Late st Contact Info) Description 11/25/2017 Telephone [facility] Radiation Oncology - [facility] [address] [place] [address] Lynn Vargas RN [address] [place] [address] Diagnostic Imaging Report Social History Tobacco Use Types Packs/Day Years Used Date Smoking Tobacco: Every Day Smokeless Tobacco: Never Sex and Gender Information Value Date Recorded Sex Assigned at Not on file Legal Sex Male 18:26 EDT Gender Identity Not on file Sexual Orientation Not on file documented as of this encounter Miscellaneous Notes * Telephone Encounter - Lynn Vargas RN - 11/25/2017 [address] Das's office called stating that Koko Zamora would like further imaging to rule out other types of cancer in his body prior to starting treatment for his prostate cancer. He states that cancer is common in his family. He would like Dr. Gutierrez to order more imaging. Dr. Gutierrez states that oKko Zamora doesn't need any further imaging for his current diagnosis.Dr. Gutierrez states that he has discussed this with Koko. Dr. Das's office is aware that Dr. Gutierrez will not be ordering any additional imaging. documented in this encounter Plan of Treatment Not on file documented as of this encounter Visit Diagnoses Not on filedocumented in this encounter Care Teams Travel Consultant Relationship Specialty Start Date End Date Bobby Das MD [address] [place] [address],[address] [place] [address] PCP - General 07/06/15 documented as of this encounter
--- OUTSIDE RECORDS SUMMARY | 2024-09-30 17:00 | XMS_ITS | Encounter Summary ---
Author Organization [facility] Address [address] [place] [address] Care Team Providers Care Office Support Specialist Name Role Phone Bobby Das MD Primary Care Provider Reason for Visit * Reason Comments Prostate Cancer Encounter Details Date Type Department Care Team (Late st Contact Info) Description 11/19/2017 11:00 EST Office Visit [facility] Radiation Oncology - [address] [phone] Aries Gutierrez MD [address] [place] [address], [address] [place] [address] Malignant neoplasm of prostate (HCC-CMS) [...] Dr. José. Primary Site, Histopathology and Stage: [id number], PSA 12.8 Winifred score 3+4 = 7 [...] 2/12 core biopsies with evidence of tumor, Bath score 3+3 disease at the left base, Winifred score 3+4 disease at the left apex, he had ANDREINA/pin in another core biopsy from the left apex. His pathology was reviewed here at [facility] which was confirmatory. A bone scan [...] Social History: He is and lives in [facility]. He and his own and operate [...] the more recent data based on the [facility] trial that reveals it 5 years [...] bone scan which will be done at [facility] tomorrow. Once that result is [...] prepared with voice recognition software. Please excuse internet merchant errors documented in this encounter Plan of [...] 02/03/2018 added in this encounter Care Teams Office Support Specialist Relationship Specialty Start Date End Date Bobby Das MD [address] [place] [address],[address] [place] [address] PCP - General 07/06/15 documented as of this encounter
--- OUTSIDE RECORDS SUMMARY | 2024-09-30 17:00 | XMS_ITS | Encounter Summary ---
Author Organization [facility] Address [address] [place] [address] Care Team Providers Care Motion Picture Operator Name Role Phone Bobby Das MD Primary Care Provider [phone] Encounter Details Date Type Department Care Team (Late st Contact Info) Description 01/16/2018 Results Only [facility] Radiation Oncology - [address] [address] Aries Gutierrez MD [address] [place] [address], [address] [place] [phone] Social History Tobacco Use Types Packs/Day Years [...] on filedocumented in this encounter Care Teams Motion Picture Operator Relationship Specialty Start Date End Date Bobby Das MD [address] [place] [address],[address] [place] [address] PCP - General 07/06/15 documented as of this encounter
--- OUTSIDE RECORDS SUMMARY | 2024-09-30 17:00 | XMS_ITS | Encounter Summary ---
Author Organization [facility] Address [address] [place] [address] Care Team Providers Care Manager Resort Name Role Phone Bobby Das MD Primary Care Provider [phone] Reason for Visit * Reason Onset Date Comments Follow-up 01/12/2018 Encounter Details Date Type Department Care Team (Late st Contact Info) Description 01/12/2018 Telephone [facility] Radiation Oncology - [facility] [address] [place] [address] Isela Law RN Follow-up Social [...] Encounter - Isela Law RN - 01/12/2018 6528 EST This is a planned post procedure [...] filedocumented in this encounter Care Teams Manager Resort Relationship Specialty Start Date End Date Bobby Das MD [address] [place] [address] ,[address] [place] [address] PCP - General 07/06/15 documented as of this encounter
--- OUTSIDE RECORDS SUMMARY | 2024-09-30 17:00 | XMS_ITS | Encounter Summary ---
Author Organization [facility] Address [address] [place] [address] Care Team Providers Care Maintenance Man Name Role Phone Bobby Das MD Primary Care Provider [phone] Encounter Details Date Type Department Care Team (Late st Contact Info) Description 01/08/2018 11:00 EST Procedure visit [facility] Radiation Oncology - [address] [id number] Aries Gutierrez MD [address] [place] [address], Level [address] [place] [phone] Discharge Disposition: Auto Discharge Social History Tobacco [...] prostate gland. DATE OF SERVICE: 01/08/2018 INDICATIONS: [id number], PSA 12.8 Gaffney score 3+4 = 7 adenocarcinoma prostate NARRATIVE: [...] documented as of this encounter Care Teams Maintenance Man Relationship Specialty Start Date End Date Bobby Das MD [address] [place] [address] ,[address] [place] [address] PCP - General 07/06/15 documented as of this encounter
--- OUTSIDE RECORDS SUMMARY | 2024-09-30 17:01 | XMS_ITS | Encounter Summary ---
Author Organization Count Includes [facility] Address [facility] [place] [address] Care Team Providers Care Geophysics Scientist Name Role Phone Bobby Das MD Primary Care Provider [phone] Reason for Visit * Reason Comments Medication Refill Encounter Details Date Type Department Care Team (Late st Contact Info) Description 05/30/2023 Refill [place] [address] Nasrin Parra PA [facility] [place] [address] Social History Tobacco Use Types Packs/Day Years [...] Date End Date Bobby Das MD [address] [place] [address] [place] [phone] PCP - General 10/02/10 documented as of this encounter
--- OUTSIDE RECORDS SUMMARY | 2024-09-30 17:01 | XMS_ITS | Encounter Summary ---
Author Organization [facility] Address [facility] [place] [address] Care Team Providers Care News Librarian Name Role Phone Bobby Das MD Primary Care Provider [phone] Encounter Details Date Type Department Care Team (Late st Contact Info) Description 10/24/2023 Orders Only Cardiology at [address] [address] Christian Figueroa MD [facility] [place] [address] Atrial fibrillation, unspecified type (Primary Dx) Social History Tobacco Use Types Packs/Day Years Used Date Smoking Tobacco: Former Cigarettes 0.5 50 0 05/15/1972 - 05/15/2022 Smokeless Tobacco: Never Alcohol Use Standard Drinks/Week Comments Yes 42 (1 standard drink = 0.6 oz pu re alcohol) Last alcohol use in May 2022 [facility] Utilities Answer Date Recorded In the past 12 months has [employer] electric, gas, oil, or water company threatened [...] in a fpc (including now)? No 11/08/2023 DH IPV Inpatient [...] Primary documented in this encounter Care Teams News Librarian Relationship Specialty Start Date End Date Bobby Das MD [address] [place] [address] [place] [address] PCP - General 10/02/10 documented as of this encounter
--- OUTSIDE RECORDS SUMMARY | 2024-09-30 17:01 | XMS_ITS | Encounter Summary ---
Author Organization [facility] Address [facility] [place] [address] Care Team Providers Care Drug Abuse Social Worker Name Role Phone Bobby Das MD Primary Care Provider [phone] Reason for Referral * Consultation (Routine) - Closed Specialty Diagnoses / Procedures Referred By Colby quezada Referred To Contact Dermatology Diagnoses Basal cell carcinoma of right ala nasi Mile Villafuerte MD [facility] [address] [place] [address] Jace Lynn MD [facility] [address] [place] [address] Referral ID Status Reason Start Date Expiration Date V isits Requested Visits Authorized [id number] Closed Consult, Test & Treat 08/05/2023 08/04/2024 1 1 Reason for Visit * Consultation (Urgent) - Closed Specialty Diagnoses / Procedures Referred By Conthomar t Referred To Contact Dermatology Diagnoses Basal cell carcinoma (BCC), unspecified site Bobby Das MD [address] [place] [address] [place] [phone] [facility] Dermatology [address] [place] [address] Referral ID Status Reason Start Date Expiration Date V isits Requested Visits Authorized [id number] Closed Consult, Test & Treat PCP Updated and/or Approved 06/12/2023 06/11/2024 6 6 Encounter Details Date Type Department Care Team (Late st Contact Info) Description 07/28/2023 10:00 AM EDT Office Visit Dermatology at [facility] [address] [place] [address] Mile Villafuerte MD [facility] [address] [place] [address] History of basal cell carcinoma (BCC); [place] [...] nevi N SCC N BCC 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 Other: N/A RTC: 3 months for mole recheck and rosacea follow up []Note routed to traveling secretary []Recall placed in scheduling system []Appointment scheduled at checkout Scribe attestation: Hilton Chavez has performed the documentation for this encounter in the presence of and acting as a scribe for Mile Villafuerte MD. I performed the above scribed service and agree with the accuracy of the documentation in this encounter. Reviewed and signed by: Mile Villafuerte MD Dermatology [facility] Patient seen and evaluated with staff universal grinder operator: June Lua MD Dermatology [facility] * June Lua MD - 07/28/2023 10:00 [...] Report (07/28/2023 11:40 AM EDT) Final Diagnosis [id number] ? Location: HDM The signing pathologist has [...] Bone & Soft Tissue Pathologist Performed at: ??-[facility] Dept. of Pathology, [place] [address] Regional Sales Coordinator: Scout Landis MD, FCAP, ??CLIA Certificate: [id number] DISCUSSION THIS RESULT REQUIRES PHYSICIAN/A.P.P. FOLLOW UP [...] labeled A1. ??pps(A) 08/04/2023 12:13 PM EDT [facility] SPECIMEN FROM SKIN / Unknown 07/28/2023 11:40 AM EDT 07/28/2023 11:40 AM EDT Mile Villafuerte MD PATHOLOGY/[place]TOLOGY [place], [place] [id number] [place] [address] [place] [address] * Specimen to Pathology (07/28/2023 11:40 AM EDT) AP Specimen 07/28/2023 11:4 0 AM EDT 07/28/2023 11:40 AM EDT Narrative [facility] - 07/28/2023 11:40 AM EDT Specimen requisition ordered. ??Separate Pathology report to follow June Lua MD PATHOLOGY/CYTOLOGY O [place] Performing Organization Address City/[facility]/ZIP Co de Phone Number [facility] [place] [address] documented in this encounter Visit Diagnoses Diagnosis [...] face documented in this encounter Care Teams Drug Abuse Social Worker Relationship Specialty Start Date End Date Bobby Das MD [address] [place] [address] [place] [address] PCP - General 10/02/10 documented as of this encounter
--- OUTSIDE RECORDS SUMMARY | 2024-09-30 17:01 | XMS_ITS | Encounter Summary ---
Author Organization [facility] [place] [address] Care Team Providers Care Bullion Weigher Name Role Phone Bobby Das MD Primary Care Provider [phone] Encounter Details Date Type Department Care Team [...] on filedocumented in this encounter Care Teams Bullion Weigher Relationship Specialty Start Date End Date Bobby Das MD [address] [place] [address] [place] [address] PCP - General 10/02/10 documented as of this encounter
--- OUTSIDE RECORDS SUMMARY | 2024-09-30 17:01 | XMS_ITS | Encounter Summary ---
Author Organization [facility] [place] [address] Care Team Providers Care Sports Teacher Name Role Phone Bobby Das MD Primary Care Provider [phone] Encounter Details Date Type Department Care Team (Late st Contact Info) Description 10/27/2023 Telephone [place] [phone] Faby Hirsch Social History Tobacco Use Types [...] filedocumented in this encounter Care Teams Sports Teacher Relationship Specialty Start Date End Date Bobby Das MD [address] [place] [address] [place] [phone] PCP - General 10/02/10 documented as of this encounter
--- OUTSIDE RECORDS SUMMARY | 2024-09-30 17:01 | XMS_ITS | Encounter Summary ---
Author Organization [facility] Address [facility] [place] [address] Care Team Providers Care Health Administration Teacher Name Role Phone Bobby Das MD Primary Care Provider [phone] Encounter Details Date Type Department Care Team (Late st Contact Info) Description 10/31/2023 Telephone [place] [address] Alan August MD [facility] [place] [address] Social History Tobacco Use Types Packs/Day Years [...] filedocumented in this encounter Care Teams Health Administration Teacher Relationship Specialty Start Date End Date Bobby Das MD [address] [place] [address] [place] [address] PCP - General 10/02/10 documented as of this encounter
--- OUTSIDE RECORDS SUMMARY | 2024-09-30 17:01 | XMS_ITS | Encounter Summary ---
Author Organization [facility] Address [facility] [address] Care Team Providers Care Orthopedics Pediatric Physician Name Role Phone Bobby Das MD Primary Care Provider [phone] Reason for Referral * Consultation (Urgent) - Closed Specialty Diagnoses / Procedures Referred By Colby quezada Referred To Contact Dermatology Diagnoses Basal cell carcinoma (BCC), unspecified site Bobby Das MD [address] [place] [address] [place] [address] [facility] Dermatology [address] [place] [address] Referral ID Status Reason Start Date Expiration Date V isits Requested Visits Authorized [id number] Closed Consult, Test & Treat PCP Updated and/or Approved 06/12/2023 06/11/2024 6 6 Encounter Details Date Type Department Care Team (Latest Contact Info) Description 06/12/2023 Transcribe Orders eDH Incoming Referrals [phone] Bobby Das MD [address] [place] [address] [place] [address] Basal cell carcinoma (BCC), unspecified site [...] site documented in this encounter Care Teams Orthopedics Pediatric Physician Relationship Specialty Start Date End Date Bobby Das MD [address] [place] [address] [place] [phone] PCP - General 10/02/10 documented as of this encounter
--- OUTSIDE RECORDS SUMMARY | 2024-09-30 17:01 | XMS_ITS | Encounter Summary ---
Author Organization [facility] [place] [address] Care Team Providers Care Customer Service Attendant Name Role Phone Bobby Das MD Primary Care Provider [phone] Reason for Visit * Reason Onset Date Comments Prior Authorization 07/29/2023 tretinoin (R ETIN-A) 0.025 % Cream Encounter Details Date Type Department Care Team (Late st Contact Info) Description 07/29/2023 [place] [address] Avril Jones MA Prior Authorization [...] Date: 07/29/2023 End Date: 11/09/2023 Case/Reference #: [id number] Approval Letter will be scanned into media [...] 1940 Insurance Company: [employer] Sent via: dloHaiti Zeng: [id number] Physician: June Lua MD Medication Requested: tretinoin [...] filedocumented in this encounter Care Teams Customer Service Attendant Relationship Specialty Start Date End Date Bobby Das MD [address] [place] [address] [place] [phone] PCP - General 10/02/10 documented as of this encounter
--- OUTSIDE RECORDS SUMMARY | 2024-09-30 17:01 | XMS_ITS | Encounter Summary ---
Author Organization [facility] Address [facility] [place] [address] Care Team Providers Care Casting Wheel Operator Name Role Phone Bobby Das MD Primary Care Provider [phone] Encounter Details Date Type Department Care Team (Late st Contact Info) Description 10/30/2023 Orders Only Cardiology at [address] [address] Christian Figueroa MD [facility] [place] [address] Atrial fibrillation, unspecified type Social History Tobacco Use Types Packs/Day Years Used Date Smoking Tobacco: Former Cigarettes 0.5 50 0 05/15/1972 - 05/15/2022 Smokeless Tobacco: Never Alcohol Use Standard Drinks/Week Comments Yes 42 (1 standard drink = 0.6 oz pu re alcohol) Last alcohol use in May 2022 [facility] Utilities Answer Date Recorded In the past 12 months has [employer] electric, gas, oil, or water company threatened [...] place to sleep or slept in a longterm (including now)? No 11/08/2023 DH IPV Inpatient [...] type documented in this encounter Care Teams Casting Wheel Operator Relationship Specialty Start Date End Date Bobby Das MD [address] [place] [address] [place] [address] PCP - General 10/02/10 documented as of this encounter
--- OUTSIDE RECORDS SUMMARY | 2024-09-30 17:01 | XMS_ITS | Encounter Summary ---
Author Organization [facility] [place] [address] Care Team Providers Care Box Annealer Name Role Phone Bobby Das MD Primary Care Provider [phone] Encounter Details Date Type Department Care Team [...] filedocumented in this encounter Care Teams Box Annealer Relationship Specialty Start Date End Date Bobby Das MD [address] [place] [address] [place] [address] PCP - General 10/02/10 documented as of this encounter
--- OUTSIDE RECORDS SUMMARY | 2024-09-30 17:01 | XMS_ITS | Encounter Summary ---
[place] [address] Care Team Providers Care Student Accounts Coordinator Name Role Phone Bobby Das MD Primary Care Provider Reason for Visit * Reason Comments Fall * Auth/Cert (Routine) Specialty Diagnoses / Procedures Referred By Colby quezada Referred To Contact Diagnoses Stroke Fernanda Pineda MD [facility] [place] [address] [facility] Referral ID Status Reason Start Date Expiration Date Visits Re quested Visits Authorized [id number] 1 1 Encounter Details Date Type Department Care Team (Latest Contact Info) Description 11/06/2023 9:53 AM EST - 11/12/2023 11:10 AM EST Hospital Encounter Medical Specialites Unit Level 1 [place] [address] Barbie Traore MD [facility] [place] [address] Fernanda Pineda MD [facility] [place] [address] Galilea Fournier MD [facility] [place] [address] Marcie Moss MD [facility] [place] [address] Cerebrovascular accident (CVA), unspecified mechanism; Atrial fibrillation, [...] alcohol) Last alcohol use in May 2022 [facility] Utilities Answer Date Recorded In the [...] a care home (including now)? No 11/08/2023 DH IPV [...] Koko Zamora Patient Age: 83 y.o. Language: Romanian Admit date: 11/06/2023 Discharge date and time: [...] Diagnosis GI bleed Coronary artery disease involving [place] coronary artery of [place] heart without angina pectoris HFrEF (heart failure [...] here for LASHAY occlusion device placement, while [facility] developed R leg weakness as witnessed [...] aphasia. Pt's states they were here at [facility] this AM walking up the ramp into [...] rehab. Operations & Procedures: None Consultations: 1. PT/OT/MAIL ROOM 2. Endocrinology Diagnostic Tests & Neuroimaging: Study Results ECG Reading Physician Reading Date Result Priority Alan Reid MD [phone] 11/06/2023 Component Ref Range & Units 2 d ago 1 yr ago Ventricular rate BPM 99 106 QRS Duration ms 112 122 Q-T Interval ms 388 368 QTC Calculated (Bezet) ms 497 488 Calculated R Kimberly degrees -55 -43 Calculated T Kimberly degrees 73 109 INTERPRETATION Atrial fibrillation Left [...] interpretation Confirmed by fellow MD Mckeon Benjamin ([id number]) on 06/02/2022 8:36:21 PM Confirmed by MD [...] center director that requested your imaging first. Electronically signed by: Edson Danielle DO, [facility]([phone]), at 11/07/2023 2:19 PM MRA Head and [...] the health childcare center director that requested yourimaging first. Electronically signed by: Edson Danielle DO, [facility] [place] ([phone]), at 11/08/2023 1:34 PM MRI Brain wo Contrast Result Date: 11/07/2023 1. [...] center director that requested your imaging first. Carotids/[place] CT Head wo & Multiphase [...] center director that requested your imaging first. Interpretation Summary [...] for root and ascending on prior) Procedure Complete-[id number]. The rhythm is atrial fibrillation. Left Ventricle [...] Anticipated Discharge Disposition (OT): acute rehabilitation facility MAIL ROOM: Assessment: Koko Zamora was seen for a post-stroke MAIL ROOM evaluation. Cognitive-Linguistic Function Koko's performance on the LAST was indicative of expressive and receptive language deficits (primarily expressive). He presented with significant word- finding difficulty requiring either Y/N questions (e.g., Are you hungry?) or response choices (e.g., Do you want eggs or [place] toast?) to communicate effectively. He reliably identified [...] fatigue easily Pt will benefit from continued MAIL ROOM services while hospitalized. Vital Signs at Discharge: [...] Administered Date(s) Administered Moderna Covid-19 Monovalent 12Yr+ (Plastic Sewer 100mcg) 12/06/2020, 01/03/2021 Discharge Medications: Your Medications [...] daily. Refills: 0 fluticasone propionate 50 mcg/actuation [place], Suspension Commonly known as: Flonase 1 spray [...] stroke, and education on stroke follow-up. Modified [place] Score (MRS) on discharge Score Description 0 [...] were admitted to the neurology service at [facility] Your Diagnosis: Ischemic [...] appointment in the neurology clinic at [facility]. See below for the appointment time. [...] may be billed similar to a regular wffh-xh-elne clinic visit. Primary Care Provider: Please follow up with your Primary Care Provider within one to 2 weeks of discharge. For questions regarding this document or issues relating to this hospitalization on the Neurology Service, please contact the author(s) of this discharge summary through the [facility] Powder Loader . If you need to cancel or reschedule, please call Dept: [phone] as soon as possible. This is helpful to us and other waiting patients. IF FOLLOW UP VISIT WITH STROKE TEAM IS NEEDED IN FORM OF TELEHEALTH: Please ensure you have an active Vigme account and are familiar with it. Also, please ensure an active email address. To sign up for a Vigme account, Visit the [email or web address] website and 1) choose ???create an account?? [...] created. If you need technical assistance call [phone] Friday through Friday, 7:30 am to 5:00 pm If you plan to join your [facility]- Video Visit using your personal smartphone or tablet, prior to joining your visit you will need to download the Zoom sloane from the Sloane Store (for iPhone/iPad) or Chujian (for Android). Ifyou already have Zoom downloaded on your device for personal use, you???re good to go! 1. Open the Sloane Store or Chujian Store on your device. 2. Search for Zoom and download the ZoNu3 [employer] Meetings sloane. ? Sloane Store Link: https://Citydeal.de.aScentias/us/sloane/ldsm-lfovl-qwqocuge/og400303971 ? Google MetaCure Link: https://Ensyn/store/apps/details?id=us.zoom.videomeetings If you plan to join your [facility] Video Visit using your computer or [...] the link to connect to your visit withinyoTechieweb Solutions portal. 1. Sign into your Vigme account. 2. Select Appointments. 3. Select your [facility] Video Visit and tap Begin Visit. [...] Starting 30 minutes prior to your scheduled [facility] Video Visit, you will find the link to connect tothe visit within your Vigme portal. 1. Sign into your Vigme account (Vigme portal link: [email or web address]). 2. On the top of the webpage, hover over Visits and select Appointments and Visits. 3. Click the Details button next to your [facility] video visit. 4. Click the Begin [...] juice or regular (not diet) soda 6 ObjectVideoavers small box of raisins 4 glucose tablets [...] 8:00 AM Esmer Sotomayor APRN Neurology at [facility] Arrive at: [employer] [phone] 03/08/2024 10:00 AM Karthik Domingo MD Gastroenterology at [facility] Arrive at: [employer]L [phone] Primary Care Provider: Bobby Das MD [address] [place] [address] / [place] [id number] Discharge References/Attachments None documented in this encounter [...] were admitted to the neurology service at [facility] Your Diagnosis: Ischemic [...] appointment in the neurology clinic at [facility]. See below for the appointment time. [...] may be billed similar to a regular xikj-ot-uxbi clinic visit. Primary Care Provider: Please follow up with your Primary Care Provider within one to 2 weeks of discharge. For questions regarding this document or issues relating to this hospitalization on the Neurology Service, please contact the author(s) of this discharge summary through the [facility] Powder Loader . If you need to cancel or reschedule, please call Dept: [phone] as soon as possible. This is helpful to us and other waiting patients. IF FOLLOW UP VISIT WITH STROKE TEAM IS NEEDED IN FORM OF TELEHEALTH: Please ensure you have an active Vigme account and are familiar with it. Also, please ensure an active email address. To sign up for a Vigme account, Visit the [email or web address] website and 1) choose ???create an account?? [...] created. If you need technical assistance call [phone] Friday through Friday, 7:30 am to 5:00 pm If you plan to join your [facility] Video Visit using your personal smartphone or tablet, prior to joining your visit you will need to download the Zoom sloane from the Sloane Store (for iPhone/iPad) or Chujian (for Android). Ifyou already have Zoom downloaded on your device for personal use, you???re good to go! 1. Open the Sloane Store or Chujian Store on your device. 2. Search for Zoom and download the ZoNu3 [place] Meetings sloane. ? Sloane Store Link: https://Citydeal.de.aScentias/us/sloane/lvta-mquod-gmxkbmiu/yt170223885 ? Chujian Link: https://Ensyn/store/apps/details?id=us.zoom.videomeetings If you plan to join your [facility] Video Visit using your computer or [...] link to connect to your visit withinyour Vigme portal. 1. Sign into your Vigme account. 2. Select Appointments. 3. Select your [facility] Video Visit and tap Begin Visit. [...] Starting 30 minutes prior to your scheduled [facility] Video Visit, you will find the link to connect tothe visit within your Vigme portal. 1. Sign into your Vigme account (Vigme portal link: [email or web address]). 2. On the top of the webpage, hover over Visits and select Appointments and Visits. 3. Click the Details button next to your [facility] video visit. 4. Click the Begin [...] 3 12/12/2022 fluticasone propionate (FLONASE) 50 mcg/actuation [place], Suspension 1 spray by Each Nare route [...] 11/12/2023 10:07 AM EST Office of Care Management/[facility] Patient Name: Koko Zamora : 1940 Patient has been offered an acute rehab bed at [facility] for today, 11/12/23 Patient to transport to facility via private car around 10:30 No MD to MD report necessary Dr. Zaman to admit Please call Nursing Report to , ask for highway construction inspector. Info to accompany patient: Copies of Medication Administration Records and IV sheets for past 10 days. Plan: [facility] will be available to the patient and In Class Special Education Teacher-RN and/or Social Workerfor further assistance. 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 MAIL ROOM was consulted as stroke protocol. Interval History: n/a; planning for discharge to [place] this morning Prior Level of Function: (From initial MAIL ROOM bedside evaluation 11/07/23): Patient reports chronic dysphagia [...] Education: Pt and educated on role of MAIL ROOM, MAIL ROOM services at discharge location, and progressionthus far re: swallow/language; both denied further questions. Assessment: Pt was seen today for a follow-up MAIL ROOM visit. Pt with subjective improvements in expressive [...] goals while hospitalized and at discharge location ([facility]). Diagnosis: Functional-appearing oropharyngeal swallow, suspected esophageal [...] fatigue easily Pt will benefit from continued MAIL ROOM services while hospitalized. Speech Therapy Goals: Pt will tolerate the least restrictive diet without further respiratory decompensation. MET Pt will be independent with aspiration precautions. MET Pt will participate in ongoing cognitive-linguistic assessment as indicated Plan: Therapy Frequency (MAIL ROOM Eval): 2-3 times/wk Pt./family are in agreement with treatment plan. Total Minutes (Speech Language Pathology): 12 Thank you for this consult with this patient. Please feel free to message me with any questions or concerns. Luann Sylvester MS, CFY-MAIL ROOM Speech-Language Pathologist Clinical Fellow Inpatient Rehabilitation Pager # [phone] * Vanna Suarez APRN - 11/12/2023 9:20 AM EST Images from the original note were not included. Glucose Management Team Inpatient Progress Note HPI Koko Zamora is a 83 y.o. male from [place], [place] with PMH significant for atrial fibrillation,Type 2 DM, CAD, HLD, heart failure who was admitted on 11/06/2023 currently being treated for acutestroke. Original consult completed: 11/09/2023 Patient Interview & Updates Koko is leaving to [place] rehab today at 1030. He will be [...] Carb Controlled 60/60/75g Monitoring: BG Q4 Discharge Planning/half-way diabetes care: Medications - Outpatient treatment regimen [...] the consulting service. Vanna Suarez APRN, DNP, -[facility] Inpatient Diabetes Management Team Team pager #[phone] Diabetes Discharge Instructions & Recommendations Test your [...] Fournier MD Primary Provider: Bobby Das MD [phone] Hospital Day: Hospital Day: 7 Patient ID [...] 168 hours. No results for input(s): PHART, PLO9SDC, PO2ART, GZZ2TJA in the last 168 hours. No results [...] center director that requested your imaging first. Head wo [...] center director that requested your imaging first. Cervical Spine [...] director that requested your imaging first. Chest Abdomen [...] center director that requested your imaging first. Thoracic Spine [...] center director that requested your imaging first. Lumbar Spine [...] center director that requested your imaging first. Shoulder Right [...] center director that requested your imaging first. Elbow 3 Views Right (GENERIC) (Exam End: [...] center director that requested your imaging first. Wrist 3 [...] center director that requested your imaging first. Electronically signed by: [facility]annen S[facility]chez [facility] ([phone]), at 11/06/2023 12:00 PM XR Knee 1-2 [...] center director that requested your imaging first. Electronically signed by: Shannen Sánchez [facility] ([phone]), at 11/06/2023 11:57 AM MRI Brain wo [...] center director that requested your imaging first. Head wo [...] center director that requested your imaging first. Electronically signed by: Edson Danielle DO[facility] ([phone]), at 11/07/2023 2:19 PM MRI Brain wo [...] center director that requested your imaging first. Electronically signed by: Edson Danielle DO[facility] ([phone]), at 11/08/2023 1:34 PM ASSESSMENT & PLAN [...] -EKG showed AFIB -continue tele -TTE 11/06 -PT/OT/MAIL ROOM #Other meds - Insulin lispro (in lieu [...] Please page Vascular Neurology with any questions, #[phone] Esmer Sotomayor APRN Department of Neurology [place] [id number] * Soila Molina RN - 11/11/2023 3:41 PM ESTSummary: IRVING PLANNING Pt has been accepted to [facility] for acute rehab for 11/12/23. Pt's will transport to [facility] on 11/12/23 at 10:30am. Team is aware. Soila Molina MSN-Ed, RN ACM trestle builder Office of Care Management Pager #[phone] * Alda Mejia, PT - 11/11/2023 1:52 [...] his Lesly in a multi-level home in [place], [place]. All of his needs are met [...] at discharge. I have met with the signs sales representative to: discuss discharge planning needs. provide the [facility], Office of Care Management letter from the [employer] pertaining to rehab referrals. provide a letter describing our affiliations within the [facility] and educate about their right to choose where referrals are sent. provide the [facility] Star Quality Rating handout. review the different levels of rehab including SNF, swing, and acute. provide a list of facilities within their preferred geographic area. request that they provide at least three choices for referral. They have requested referrals to: [facility] [address] [place] [address] [facility] [address] [place] [address] ARLEEN: 11/11/23 Note routed to a [facility] who will communicate referrals to facilities and provide any required information. * Vanna Suarez APRN - 11/11/2023 12:30 PM EST Images from the original note were not included. Glucose Management Team Inpatient Progress Note HPI Koko Zamora is a 83 y.o. male from [place], [place] with PMH significant for atrial fibrillation,Type [...] Carb Controlled 60/60/75g Monitoring: BG Q4 Discharge Planning/half-way diabetes care: Medications - Outpatient treatment regimen [...] the consulting service. Vanna Suarez APRN, DNP, -[facility] Inpatient Diabetes Management Team Team pager #[phone] * Gordo Skinner, [place] - 11/11/2023 10:07 [...] 2-4 times/wk Total Minutes, Occupational Therapy: 31 (fl x [phone]) Pager: [phone] Gordo Skinner OT Occupational Therapy Rehabilitation Department * Elidia Duarte MD - 11/11/2023 6:46 AM EST Images from the original note were not included. VASCULAR NEUROLOGY DAILY PROGRESS NOTE Admit Date 11/06/2023 Responsible Attending: Galilea Fournier MD Primary Provider: Bobby Das MD [phone] Hospital Day: Hospital Day: 6 Patient ID [...] 168 hours. No results for input(s): PHART, GFT6AXF, PO2ART, TLK1VJK in the last 168 hours. No results [...] center director that requested your imaging first. Head wo [...] center director that requested your imaging first. Cervical Spine [...] center director that requested your imaging first. Electronically signed by: Edson Danielle [facility] ([phone]), at 11/06/2023 11:[address] Chest Abdomen [...] center director that requested your imaging first. Thoracic Spine [...] center director that requested your imaging first. Electronically signed by: Edson Danielle DO[facility] ([phone]), at 11/06/2023 11:[address] Lumbar Spine [...] center director that requested your imaging first. Shoulder Right [...] center director that requested your imaging first. Elbow 3 Views Right (GENERIC) (Exam End: [...] center director that requested your imaging first. Wrist 3 [...] center director that requested your imaging first. Knee 1-2 [...] center director that requested your imaging first. Brain wo [...] center director that requested your imaging first. Head wo [...] center director that requested your imaging first. Brain wo [...] center director that requested your imaging first. 11/06/23 Interpretation [...] -EKG showed AFIB -continue tele -TTE 11/06 -PT/OT/MAIL ROOM #Other meds - Insulin lispro (in lieu [...] Please page Vascular Neurology with any questions, #[phone] Elidia Duarte MD [place] [address] Associated attestation - Galilea Fournier [...] Fournier MD Primary Provider: Bobby Das MD [phone] Hospital Day: Hospital Day: 5 Patient ID [...] 168 hours. No results for input(s): PHART, OIH9VQO, PO2ART, YZZ2LOH in the last 168 hours. No results [...] center director that requested your imaging first. Head wo [...] center director that requested your imaging first. Cervical Spine [...] director that requested your imaging first. Chest Abdomen [...] center director that requested your imaging first. Thoracic Spine [...] center director that requested your imaging first. Lumbar Spine [...] center director that requested your imaging first. Electronically signed by: Edson Danielle DO[facility] ([phone]), at 11/06/2023 11:29 AM XR Shoulder Right [...] center director that requested your imaging first. Elbow 3 Views Right (GENERIC) (Exam End: [...] center director that requested your imaging first. Wrist 3 [...] center director that requested your imaging first. Knee 1-2 [...] center director that requested your imaging first. Brain wo [...] center director that requested your imaging first. Head wo [...] center director that requested your imaging first. Brain wo [...] center director that requested your imaging first. 11/06/23 Interpretation [...] -EKG showed AFIB -continue tele -TTE 11/06 -PT/OT/MAIL ROOM #Other meds - Insulin lispro (in lieu [...] Please page Vascular Neurology with any questions, #[phone] Elidia Duarte [place] [address] Associated attestation - Galilea Fournier MD - [...] Nightly metoproloL tartrate 12.5 mg Oral Q6H [facility] [START ON 11/10/2023] insulin glargine (Lantus;Semglee) (100 unit/mL) subcutaneous injection 10 UnitsSubcutaneous Daily insulin lispro 0-8 Units Subcutaneous TID WC insulin lispro 1-4 Units Subcutaneous Q4H [facility] pantoprazole EC 40 mg Oral BID clopidogreL [...] recommendations pending based on the hospital course, half-way diabetes care: Medications - Outpatient treatment regimen [...] Fournier MD Primary Provider: Bobby Das MD [phone] Hospital Day: Hospital Day: 4 Patient ID [...] 168 hours. No results for input(s): PHART, BSZ9AJY, PO2ART, HUP1KRB in the last 168 hours. Recent Labs [...] center director that requested your imaging first. Head wo [...] center director that requested your imaging first. Cervical Spine [...] director that requested your imaging first. Chest Abdomen [...] center director that requested your imaging first. Thoracic Spine [...] center director that requested your imaging first. Lumbar Spine [...] center director that requested your imaging first. Shoulder Right [...] center director that requested your imaging first. Elbow 3 Views Right (GENERIC) (Exam End: [...] center director that requested your imaging first. Wrist 3 [...] center director that requested your imaging first. Knee 1-2 [...] center director that requested your imaging first. Brain wo [...] center director that requested your imaging first. Head wo [...] center director that requested your imaging first. Brain wo [...] center director that requested your imaging first. 11/06/23 Interpretation [...] -EKG showed AFIB -continue tele -TTE 11/06 -PT/OT/MAIL ROOM #Other meds - Insulin lispro (in lieu [...] Please page Vascular Neurology with any questions, #[phone] Shelli Khan DO Department of Neurology [place] [id number] Associated attestation - Galilea Fournier MD - [...] Fournier MD Primary Provider: Bobby Das MD [phone] Hospital Day: Hospital Day: 3 Patient ID [...] 168 hours. No results for input(s): PHART, BSS1EEU, PO2ART, YJA5SKD in the last 168 hours. Recent Labs [...] -EKG showed AFIB -continue tele -TTE 11/06 -PT/OT/MAIL ROOM #Other meds - insulin lispro (in lieu [...] Please page Vascular Neurology with any questions, #[phone] Total time 30 minutes was spent on pre-charting, reviewing diagnostic studies and patient chart, and formulating plan for today as well as patient education and counseling on plan as outlined above. Barbie Long APRN Department of Neurology [place] [phone] Associated attestation - Galilea Fournier MD - [...] Diagnosis GI bleed Coronary artery disease involving [place] coronary artery of [place] heart without angina pectoris HFrEF (heart failure with reduced ejection fraction) Permanent atrial fibrillation Limb ischemia History of basal cell carcinoma Basal cell carcinoma Verruca vulgaris AK (actinic keratosis) GIB (gastrointestinal bleeding) MVP (mitral valve prolapse) s/p repair Hypertriglyceridemia Adhesive capsulitis of L shoulder Alcohol use Past Surgical History: Procedure Laterality Date IR BIOPSY SPINE 07/20/2019 IR Biopsy Spine 07/20/2019 Bobby Marshall MD [facility] INTERVENTIONL RAD IR VERTEBROPLASTY LUMBAR MULTIPLE LEVELS 07/20/2019 IR Vertebroplasty Lumbar Multiple Levels 07/20/2019 Bobby Marshall MD [facility] INTERVENTIONL RAD IR VERTEBROPLASTY THORACIC SINGLE LEVEL 10/25/2020 IR Vertebroplasty Thoracic Single Level 10/25/2020 Matt Chisholm MD [facility] INTERVENTIONL RAD PRO COLONOSCOPY, DIAGNOSTIC N/A 12/09/2022 COLONOSCOPY, DIAGNOSTIC performed by Giovani Ponce MD at [facility] ENDOSCOPY PRO COLONOSCOPY, FLEX, W/CONTROL, BLEEDING N/A 06/25/2022 COLONOSCOPY; W CONTROL OF BLEEDING, ANY METHOD performed by Giovani Ponce MD at [facility] END[facility] PRO EMBLC/THRMBC FEMORAL POPLITEAL AORTO-ILIAC ARTERY Left 05/15/2022 EMBOLECTOMY OR THROMBECTOMY, FEMOROPOPLITEAL, AORTOILIAC ARTERY BY LEG INCISION (WRVU 19.48) performed by Fito Summers MD at [facility] MAIN OR PRO SMALL BOWEL ENDOSCOPY, PAST 2ND DUOD N/A 06/25/2022 SMALL BOWEL ENTEROSCOPY performed by Giovani Ponce MD at [facility] ENDOSCOPY PRO UPPER GI ENDOSCOPY, CTRL BLEED 05/31/2022 EGD, W CONTROL OF BLEEDING, ANY METHOD performed by Giovani Ponce MD at [facility] ENDOSCOPY PRO UPPER GI ENDOSCOPY, DIAGNOSTIC N/A 05/31/2022 EGD, UPPER GI ENDOSCOPY performed by Giovani Ponce MD at [facility] END[facility] PRO UPPER GI ENDOSCOPY, DIAGNOSTIC N/A 06/25/2022 EGD, UPPER GI ENDOSCOPY performed by Giovani Ponce MD at [facility] Social History: will need to confirm and gather additional details d/t aphasia Home set-up: Pt lives with his Lesly in a multi-level home in [place], [place]. All of his needs are met [...] outlined inthis evaluation. Time IN / OUT: 7575-5225 Total Minutes, Physical Therapy: 30 Billing Code: mod complexity eval Radha Hartley, PT Pager: [phone] Physical Therapy Inpatient Rehabilitation Department * Kaylene [...] IR Biopsy Spine 07/20/2019 Bobby Marshall MD [facility] INTERVENT[facility] RAD IR VERTEBROPLASTY LUMBAR MULTIPLE LEVELS 07/20/2019 IR Vertebroplasty Lumbar Multiple Levels 07/20/2019 Bobby Marshall MD [facility] INTER[facility] RAD IR VERTEBROPLASTY THORACIC SINGLE LEVEL 10/25/2020 IR Vertebroplasty Thoracic Single Level 10/25/2020 Matt Chisholm MD [facility] RAD PRO COLONOSCOPY, DIAGNOSTIC N/A 12/09/2022 COLONOSCOPY, DIAGNOSTIC performed by Giovani Ponce MD at [facility] END[facility] PRO COLONOSCOPY, FLEX, W/CONTROL, BLEEDING N/A 06/25/2022 COLONOSCOPY; W CONTROL OF BLEEDING, ANY METHOD performed by Giovani Ponce MD at [facility] PRO EMBLC/THRMBC FEMORAL POPLITEAL AORTO-ILIAC ARTERY Left 05/15/2022 EMBOLECTOMY OR THROMBECTOMY, FEMOROPOPLITEAL, AORTOILIAC ARTERY BY LEG INCISION (WRVU 19.48) performed by Fito Summers MD at [facility] MAIN OR PRO SMALL BOWEL ENDOSCOPY, PAST 2ND DUOD N/A 06/25/2022 SMALL BOWEL ENTEROSCOPY performed by Giovani Ponce MD at [facility] END[facility] PRO UPPER GI ENDOSCOPY, CTRL BLEED 05/31/2022 EGD, W CONTROL OF BLEEDING, ANY METHOD performed by Giovani Ponce MD at [facility] PRO UPPER GI ENDOSCOPY, DIAGNOSTIC N/A 05/31/2022 EGD, UPPER GI ENDOSCOPY performed by Giovani Ponce MD at [facility] PRO UPPER GI ENDOSCOPY, DIAGNOSTIC N/A 06/25/2022 EGD, UPPER GI ENDOSCOPY performed by Giovani Ponce MD at [facility] Social History: Patient lives [...] planning. Total Minutes, Occupational Therapy: 29 (eval [id number]) 2017 OT Evaluation Code Rationale: Diagnosis & [...] and measurable assessment of functional outcome. Pager: [phone] KAYLENE RAMIREZ OT 11/11/2023 Occupational Therapy Rehabilitation [...] HPI: Pt's states they were here at [facility] this AM walking up the ramp into [...] Limb ischemia I99.8 Coronary artery disease involving [place] coronary artery of [place] heart without angina pectoris I25.10 HFrEF (heart [...] 168 hours. No results for input(s): PHART, FDG5DPW, PO2ART, EYQ7FRK in the last 168 hours. Recent Labs [...] -EKG showed AFIB -continue tele -TTE 11/06 -PT/OT/MAIL ROOM #Other meds - insulin lispro (in lieu [...] Fournier MD Please page Vascular Neurology at #[phone] with any questions. Miguel Arias DO Neurology Resident, PGY-3 11/07/23 Department of Neurology [place] [phone] Associated attestation - Galilea Fournier MD - [...] IR Biopsy Spine 07/20/2019 Bobby Marshall MD [facility] INTER[facility] RAD IR VERTEBROPLASTY LUMBAR MULTIPLE LEVELS 07/20/2019 IR Vertebroplasty Lumbar Multiple Levels 07/20/2019 Bobby Marshall MD [facility] INTER[facility] RAD IR VERTEBROPLASTY THORACIC SINGLE LEVEL 10/25/2020 IR Vertebroplasty Thoracic Single Level 10/25/2020 Matt Chisholm MD [facility] RAD PRO COLONOSCOPY, DIAGNOSTIC N/A 12/09/2022 COLONOSCOPY, DIAGNOSTIC performed by Giovani Ponce MD at [facility] PRO COLONOSCOPY, FLEX, W/CONTROL, BLEEDING N/A 06/25/2022 COLONOSCOPY; W CONTROL OF BLEEDING, ANY METHOD performed by Giovani Ponce MD at [facility] PRO EMBLC/THRMBC FEMORAL POPLITEAL AORTO-ILIAC ARTERY Left 05/15/2022 EMBOLECTOMY OR THROMBECTOMY, FEMOROPOPLITEAL, AORTOILIAC ARTERY BY LEG INCISION (WRVU 19.48) performed by Fito Summers MD at [facility] MAIN OR PRO SMALL BOWEL ENDOSCOPY, PAST 2ND DUOD N/A 06/25/2022 SMALL BOWEL ENTEROSCOPY performed by Giovani Ponce MD at [facility] PRO UPPER GI ENDOSCOPY, CTRL BLEED 05/31/2022 EGD, W CONTROL OF BLEEDING, ANY METHOD performed by Giovani Ponce MD at [facility] PRO UPPER GI ENDOSCOPY, DIAGNOSTIC N/A 05/31/2022 EGD, UPPER GI ENDOSCOPY performed by Giovani Ponce MD at [facility] PRO UPPER GI ENDOSCOPY, DIAGNOSTIC N/A 06/25/2022 EGD, UPPER GI ENDOSCOPY performed by Giovani Ponce MD at [facility] Social History Tobacco Use Smoking status: [...] Lvl <100 <=99 mg/L Type and screen ([facility]/MYLES) Result Value Ref Range Patient BB History Found Expires at 1134 on: 11-09-2023 Hemogram Result Value Ref Range [...] Patient is medically ready for discharge to [facility] acute rehab. Needs for Transition of Care: Plan for discharge is: Acute Rehab Outpatient Agency/Support Group Needs: *TBD Agency Referrals & Follow-up Care: Contact information for follow-up [address] [id number] Transportation: family or friend will provide-via private [...] Type: *No Product type* / Secondary Insurance: [place] [employer] Prescription Coverage: Yes This plan was formulated with input from patient, dtr and (please identify family/friend involved if applicable) and team. All are in agreement with plan. Soila Molina MSN-Ed, RN ACM trestle builder Office of Care Management Pager #[phone] * Plan of Care - Armando Pelayo [...] EVALUATION NOTE: OUTCOME SUMMARY: Pt arrived to [facility] via bed at 1208. Vitals obtained. Pt tachycardic intermittently, tele initiatedper orders. See doc flowsheets for tele rate/rhythm measurements. Pt c/o dizziness, MD Peg Khan aware, 500mL NS bolus given per orders. Neuro check done per orders, see doc flowsheets. Assessment as charted. Medications administered per [facility] orders. Blood sugars obtained and treated per [...] COVID test: Lab Results Component Value Date [id number] Not Detected 12/12/2022 Past medical History: No past medical history on file. Hospitalizations Within the Past 30 Days: no previous admission in last 30 days Current Decision-Making Capacity: Self If AD's have not been completed the following surrogate would be surrogate decision maker per [place] surrogate decision making law. (Only good for 180 days)- LESLY Any patient receiving care in [place] must abide by [place] law. The hierarchy [...] The agent with financial power of estate attorney or a conservator appointed in accordance [...] In the past 12 months has the mediaBunker gas, oil, or water company threatened to [...] Current DME: none Home Address confirmed as: [address] [place] [id number] Social & Family Supports: All names listed below confirmed with patient as current and correct Extended Emergency Contact Information Primary Emergency Contact: Lesly Zamora Address: [address] [place] [id number] [facility] Relation: Spouse Current Care Provided [...] Type: *No Product type* / Secondary Insurance: [facility] ONLY if patient has Medicare A&B - Does this patient have secondary insurance?: Yes ; Prescription Coverage: Yes Preferred Pharmacy: [facility] [place], [place] - [address] [facility] [address] [facility] [address] [place] Status: Patient is a : Yes Are you enrolled in the VA for your healthcare?: Yes Are you here under your VA benefit?: No Primary Care Provider confirmed: Bobby Das MD [phone] Patient/Caregiver Goals of Treatment: Pt was fully ind at baseline prior to CVA, was working out, fully mobile, and driving prior. Acute rehab choices given to family for referrals, awaiting choices. Potential Needs for Transition of Care: home health care, outpatient care, rehabilitation services,durable medical equipment Agency Referrals: Not Applicable Transportation: no concerns Transportation Anticipated: Concerns to be Addressed: adjustment to diagnosis/illness, manager care management support, discharge planning Assessment: Patient is admitted to [facility] Neuro service for CVA Plan: Acute rehab choices given to pt/family, awaiting decision. A member of the Care Management team will continue to monitor progress, follow for continuity of care and assist with transition of care planning. Soila Molina MSN-Ed, RN ACM trestle builder Office of Care Management Pager #[phone] * Consult Note - Trenton Johnson MD [...] with 10 units twice daily if BG dtaht462) 2. Lispro sensitive correction scale for BG>140 q 4 hrs 3. Meal-associated Lispro 1unit: 10 gm carb ratio for each meal) Diabetes Discharge Planning Medications - Outpatient treatment regimen recommendations pending based on the hospital course, exterminator helper termite diabetes care: Medications - Outpatient treatment regimen [...] referrals. Satish López RN RN/CM - Cellphone: [phone] Pager: [phone] Covering Service RN/CM * Consult Note - [...] IR Biopsy Spine 07/20/2019 Bobby Marshall MD [facility] INTER[facility]ION[facility] RAD IR VERTEBROPLASTY LUMBAR MULTIPLE LEVELS 07/20/2019 IR Vertebroplasty Lumbar Multiple Levels 07/20/2019 Bobby Marshall MD [facility] INTERVENTION[facility] RAD IR VERTEBROPLASTY THORACIC SINGLE LEVEL 10/25/2020 IR Vertebroplasty Thoracic Single Level 10/25/2020 Matt Chisholm MD [facility] INTERVENT[facility] RAD PRO COLONOSCOPY, DIAGNOSTIC N/A 12/09/2022 COLONOSCOPY, DIAGNOSTIC performed by Giovani Ponce MD at [facility] END[facility] PRO COLONOSCOPY, FLEX, W/CONTROL, BLEEDING N/A 06/25/2022 COLONOSCOPY; W CONTROL OF BLEEDING, ANY METHOD performed by Giovani Ponce MD at [facility] PRO EMBLC/THRMBC FEMORAL POPLITEAL AORTO-ILIAC ARTERY Left 05/15/2022 EMBOLECTOMY OR THROMBECTOMY, FEMOROPOPLITEAL, AORTOILIAC ARTERY BY LEG INCISION (WRVU 19.48) performed by Fito Summers MD at [facility] MAIN OR PRO SMALL BOWEL ENDOSCOPY, PAST 2ND DUOD N/A 06/25/2022 SMALL BOWEL ENTEROSCOPY performed by Giovani Ponce MD at [facility] END[facility]COPY PRO UPPER GI ENDOSCOPY, CTRL BLEED 05/31/2022 EGD, W CONTROL OF BLEEDING, ANY METHOD performed by Giovani Ponce MD at [facility] END[facility] PRO UPPER GI ENDOSCOPY, DIAGNOSTIC N/A 05/31/2022 EGD, UPPER GI ENDOSCOPY performed by Giovani Ponce MD at [facility] END[facility] PRO UPPER GI ENDOSCOPY, DIAGNOSTIC N/A 06/25/2022 EGD, UPPER GI ENDOSCOPY performed by Giovani Ponce MD at [facility] SOCIAL HX: Social History [...] 3 Unknown fluticasone propionate (FLONASE) 50 mcg/actuation [place], Suspension 1 spray by Each Nare route [...] center director that requested your imaging first. Shoulder Right (Generic) Final Result No acute fracture or dislocation Thank you for letting us participate in the care of this patient. If you are a health care provider and have any questions regarding this report, please contact the number below. For patients who have questions please contact the health childcare center director that requested your imaging first. Elbow 3 Views Right (GENERIC) Final Result [...] center director that requested your imaging first. Wrist 3 Views Right Final Result 1. [...] center director that requested your imaging first. Knee 1-2 Views Right (Generic) Final Result [...] center director that requested your imaging first. Head wo [...] center director that requested your imaging first. Cervical Spine [...] director that requested your imaging first. Chest Abdomen [...] center director that requested your imaging first. Thoracic Spine [...] center director that requested your imaging first. Lumbar Spine [...] center director that requested your imaging first. Electronically signed by: [facility]le [facility] ([phone]), at 11/06/2023 11:29 AM XR Chest AP [...] center director that requested your imaging first. Cardiac Catheterization (Results Pending) CT Head wo Contrast (Generic) (Results Pending) ENDOSCOPY: Reports and images personally reviewed in [facility] COLONOSCOPY 11/2022: Impression: - Multiple [...] patient's clinical [facility]. [facility] ASSESSMENT & PLAN: [...] is a 83 y.o. male presents to [facility] s/p stroke leading to a fall. Primary [...] IR Biopsy Spine 07/20/2019 Bobby Marshall MD [facility] INTERVENT[facility] RAD IR VERTEBROPLASTY LUMBAR MULTIPLE LEVELS 07/20/2019 IR Vertebroplasty Lumbar Multiple Levels 07/20/2019 Bobby Marshall MD [facility] INTERVENTION[facility] RAD IR VERTEBROPLASTY THORACIC SINGLE LEVEL 10/25/2020 IR Vertebroplasty Thoracic Single Level 10/25/2020 Matt Chisholm MD [facility] INTER[facility] RAD PRO COLONOSCOPY, DIAGNOSTIC N/A 12/09/2022 COLONOSCOPY, DIAGNOSTIC performed by Giovani Ponce MD at [facility] ENDOSCOPY PRO COLONOSCOPY, FLEX, W/CONTROL, BLEEDING N/A 06/25/2022 COLONOSCOPY; W CONTROL OF BLEEDING, ANY METHOD performed by Giovani Ponce MD at [facility] ENDOS[facility] PRO EMBLC/THRMBC FEMORAL POPLITEAL AORTO-ILIAC ARTERY Left 05/15/2022 EMBOLECTOMY OR THROMBECTOMY, FEMOROPOPLITEAL, AORTOILIAC ARTERY BY LEG INCISION (WRVU 19.48) performed by Fito Summers MD at [facility] MAIN OR PRO SMALL BOWEL ENDOSCOPY, PAST 2ND DUOD N/A 06/25/2022 SMALL BOWEL ENTEROSCOPY performed by Giovani Ponce MD at [facility] ENDOSCOPY PRO UPPER GI ENDOSCOPY, CTRL BLEED 05/31/2022 EGD, W CONTROL OF BLEEDING, ANY METHOD performed by Giovani Pocne MD at [facility] ENDOSCOPY PRO UPPER GI ENDOSCOPY, DIAGNOSTIC N/A 05/31/2022 EGD, UPPER GI ENDOSCOPY performed by Giovani Ponce MD at [facility] END[facility]COPY PRO UPPER GI ENDOSCOPY, DIAGNOSTIC N/A 06/25/2022 EGD, UPPER GI ENDOSCOPY performed by Giovani Ponce MD at [facility] ENDOSCOPY HOME MEDICATIONS: Medications Prior to Admission Medication Sig Dispense Refill Last Dose tretinoin (RETIN-A) 0.025 % Cream Apply topically nightly. 45 g 0 Unknown apixaban (Eliquis) 2.5 mg Tablet Take 1 tablet by mouth 2 times daily. 60 tablet 3 Unknown fluticasone propionate (FLONASE) 50 mcg/actuation [place], Suspension 1 spray by Each Nare route [...] None Corrie Mcdaniel MD 11/07/2023 Trauma pager [phone] Associated attestation - Kel Campos MD - 11/09/2023 5:40 PM EST I have seen the patient in person and reviewed the above history and I agree with the details as written. The assessment and plan were formulated in discussion with me and I agree with them as documented. Kel Campos MD * Initial Assessments - Etta Golden, MAIL ROOM - 11/07/2023 9:10 AM EST Speech Therapy Evaluation Patient Profile: Koko Zamora is a 83 y.o. male with PMHx of A-fib, DMII, CAD s/p stenting (05/2022; on Plavix), HLD, HFrEF, MV repair for mitral valve prolapse (2000), prior GIB on ASA (iso duodenal and colonic angiectasias), PAD (s/p LLE ACLI s/p embolectomy with 4 compartment fasciotomy), and basal cell carcinoma, who presented to [facility] on 11/06/2023 with acute-onset right sided weakness, AMS, and aphasia and was found to have a distal left BRUCE occlusion, now s/p tPA. MAIL ROOM consulted on 11/06 for a bedside swallow [...] LAST has been modified for use at [facility]. Expression Index: NAMING Correct? Comments Pen Yes: [...] WFL Lingual Strength: WFL Other Oral Mucosa: [place] and moist Dentition: Present and intact; reports [...] Koko Zamora was seen for a post-stroke MAIL ROOM evaluation. Cognitive-Linguistic Function Koko's performance on the LAST was indicative of expressive and receptive language deficits (primarily expressive). He presented with significant word- finding difficulty requiring either Y/N questions (e.g., Are you hungry?) or response choices (e.g., Do you want eggs or [place] toast?) to communicate effectively. He reliably identified [...] fatigue easily Pt will benefit from continued MAIL ROOM services while hospitalized. Speech Therapy Goals: (To be met by discharge) Pt will tolerate the least restrictive diet without further respiratory decompensation. Pt will be independent with aspiration precautions. Pt will participate in ongoing cognitive-linguistic assessment as indicated. Plan: Therapy Frequency (MAIL ROOM Eval): 2-3 times/wk Patient is in agreement with the plan of care. Total Minutes (Speech Language Pathology): 40 Thanks for the opportunity to contribute to this patient's care. Please feel free to page me with any questions or concerns. Etta Golden MS, [facility]-MAIL ROOM Speech-Language Pathologist Inpatient Rehabilitation Pager # [phone] * Plan of Care - Chris Paz [...] GI bleed 12/08/2022 Coronary artery disease involving [place] coronary artery of [place] heart without angina pectoris 06/13/2022 HFrEF (heart [...] IR Biopsy Spine 07/20/2019 Bobby Marshall MD [facility] RAD IR VERTEBROPLASTY LUMBAR MULTIPLE LEVELS 07/20/2019 IR Vertebroplasty Lumbar Multiple Levels 07/20/2019 Bobby Marshall MD [facility] INTER[facility] RAD IR VERTEBROPLASTY THORACIC SINGLE LEVEL 10/25/2020 IR Vertebroplasty Thoracic Single Level 10/25/2020 Matt Chisholm MD [facility] RAD PRO COLONOSCOPY, DIAGNOSTIC N/A 12/09/2022 COLONOSCOPY, DIAGNOSTIC performed by Giovani Ponce MD at [facility] ENDOS[facility] PRO COLONOSCOPY, FLEX, W/CONTROL, BLEEDING N/A 06/25/2022 COLONOSCOPY; W CONTROL OF BLEEDING, ANY METHOD performed by Giovani Ponce MD at [facility] END[facility] PRO EMBLC/THRMBC FEMORAL POPLITEAL AORTO-ILIAC ARTERY Left 05/15/2022 EMBOLECTOMY OR THROMBECTOMY, FEMOROPOPLITEAL, AORTOILIAC ARTERY BY LEG INCISION (WRVU 19.48) performed by Fito Summers MD at [facility] MAIN OR PRO SMALL BOWEL ENDOSCOPY, PAST 2ND DUOD N/A 06/25/2022 SMALL BOWEL ENTEROSCOPY performed by Giovani Ponce MD at [facility] END[facility] PRO UPPER GI ENDOSCOPY, CTRL BLEED 05/31/2022 EGD, W CONTROL OF BLEEDING, ANY METHOD performed by Giovani Ponce MD at [facility] END[facility] PRO UPPER GI ENDOSCOPY, DIAGNOSTIC N/A 05/31/2022 EGD, UPPER GI ENDOSCOPY performed by Giovani Ponce MD at [facility] END[facility] PRO UPPER GI ENDOSCOPY, DIAGNOSTIC N/A 06/25/2022 EGD, UPPER GI ENDOSCOPY performed by iGovani Ponce MD at [facility] Subjective/Objective: Aware of hourly neuro checks [...] Koko Zamora Level of Activation: Alert MR#: [id number] [X] Scene Call or [ ] Hospital Transfer : [id number] CC/MECHANISM OF INJURY: 83 y.o. Male s/p GLF. HISTORY OF PRESENT ILLNESS: Koko Zamora is a 83 y.o. male presents to [facility] s/p GLF. Description of events leading up to injury includes: Patient was walking into the [facility] hospital forhis scheduled Watchman's procedure when his [...] IR Biopsy Spine 07/20/2019 Bobby Marshall MD [facility] RAD IR VERTEBROPLASTY LUMBAR MULTIPLE LEVELS 07/20/2019 IR Vertebroplasty Lumbar Multiple Levels 07/20/2019 Bobby Marshall MD [facility] INTER[facility] RAD IR VERTEBROPLASTY THORACIC SINGLE LEVEL 10/25/2020 IR Vertebroplasty Thoracic Single Level 10/25/2020 Matt Chisholm MD [facility] RAD PRO COLONOSCOPY, DIAGNOSTIC N/A 12/09/2022 COLONOSCOPY, DIAGNOSTIC performed by Giovani Ponce MD at [facility] END[facility] PRO COLONOSCOPY, FLEX, W/CONTROL, BLEEDING N/A 06/25/2022 COLONOSCOPY; W CONTROL OF BLEEDING, ANY METHOD performed by Giovani Ponce MD at [facility] END[facility] PRO EMBLC/THRMBC FEMORAL POPLITEAL AORTO-ILIAC ARTERY Left 05/15/2022 EMBOLECTOMY OR THROMBECTOMY, FEMOROPOPLITEAL, AORTOILIAC ARTERY BY LEG INCISION (WRVU 19.48) performed by Fito Summers MD at [facility] MAIN OR PRO SMALL BOWEL ENDOSCOPY, PAST 2ND DUOD N/A 06/25/2022 SMALL BOWEL ENTEROSCOPY performed by Giovani Ponce MD at [facility] PRO UPPER GI ENDOSCOPY, CTRL BLEED 05/31/2022 EGD, W CONTROL OF BLEEDING, ANY METHOD performed by Giovani Ponce MD at [facility] END[facility] PRO UPPER GI ENDOSCOPY, DIAGNOSTIC N/A 05/31/2022 EGD, UPPER GI ENDOSCOPY performed by Giovani Ponce MD at [facility] END[facility] PRO UPPER GI ENDOSCOPY, DIAGNOSTIC N/A 06/25/2022 EGD, UPPER GI ENDOSCOPY performed by Giovani Ponce MD at [facility] ALLERGIES: Allergies Allergen Reactions Aspirin Other [...] tablet 3 fluticasone propionate (FLONASE) 50 mcg/actuation [place], Suspension 1 spray by Each Nare route [...] Negative mcL Appearance UA Clear Clear Spec [place] UA >=1.030 (A) 1.005 - 1.030 Color [...] Per trauma. C-collar in place given Corrie Mcdainel MD [id number] 11/06/2023 12:07 PM Associated attestation [...] aphasia. Pt's states they were here at [facility] this AM walking up the ramp into [...] Limb ischemia I99.8 Coronary artery disease involving [place] coronary artery of [place] heart without angina pectoris I25.10 HFrEF (heart [...] 168 hours. No results for input(s): PHART, IPK1HNR, PO2ART, OLY3AFG in the last 168 hours. Recent Labs [...] Fournier MD Please page Vascular Neurology at #[phone] with any questions. Miguel Arias DO Neurology Resident, PGY-3 11/06/23 [place] [address] Associated attestation - Galilea Fournier MD - [...] here for LASHAY occlusion device placement, while [facility] developed R leg weakness as witnessed [...] Glucose, POC 140 65 - 199 mg/dL [facility] Comment: Supplemental ranges: <140 mg/dL before meals <180 mg/dL all other times of the day Blood 11/12/2023 7:46 AM EST 11/12/2023 7:46 AM EST Galilea Fournier MD POINT OF CARE TEST O RDERABLES [facility] [place] [address] * Differential, Automated (11/12/2023 6:04 AM EST) Neutrophil % 66.1 % [facility] Neutrophil Absolute 4.60 1.70 - 6.10 x10(3)/[facility] Lymph % 20.7 % [facility] Lymphocytes Abs 1.4 0.9 - 3.2 x10(3)/[facility] Monocyte % 10.4 % [facility] Monocyte Abs 0.7 0.3 - 0.9 x10(3)/[facility] Eos % 1.6 % [facility] Eosinophils Abs 0.1 0.0 - 0.4 x10(3)/[facility] Basophil % 0.9 % [facility] Baso Absolute 0.1 0.0 - 0.1 x10(3)/[facility] Immature Gran % 0.30 % [facility] Comment: Immature granulocytes(IG's)percentage and absolute count will include metamyelocytes, myelocytes, and promyelocytes. Blood smears from CBCs yielding IG's will be scanned manually for concordance. If this scan disagrees with the automated IG or if promyelocytes are noted, a manual differential will be performed. Immature Gran Absolute 0.02 0.00 - 0.04 x10(3)/[facility] LABORATORY Blood 11/12/2023 6:04 AM EST 11/12/2023 6:39 AM EST Narrative Resulting Agency Comment Spec In Lab Barbie Long CHEMICAL ENGINEERING TECHNOLOGIST HEMATOLOGY ORDERAB LES [facility] [place] [address] * (ABNORMAL) Hemogram (11/12/2023 6:04 AM EST) White Blood Cell 7.0 4.0 - 9.5 x10(3)/mc L [facility] Red Blood Cell 5.21 4.58 - 5.54 x10(6)/mc L [facility] Hemoglobin 16.4 13.7 - 16.5 g/dL [facility] Hematocrit 47.4 40.5 - 48.5 % [facility] Mean Cell Volume 91.0 82.9 - 93.1 fL [facility] Mean Cell Hemoglobin 31.5 27.5 - 32.1 pg [facility] Mean Cell Hemoglobin Concentration 34.6 32.0 - 35.7 g/dL [facility] Platelet 133(L) 145 - 357 x10(3)/mc L [facility] RDW Standard Deviation 42.0 36.0 - 45.0 fL [facility] RDW coefficient of variation 12.7 11.4 - 13.8 % [facility] Mean Platelet Volume 10.4 7.6 - 12.9 fL [facility] NRBC% auto 0.0 % [facility] ITAL LABORATORY NRBC Absolute 0.000 0.000 - 0.000 x10(3)/mc L [facility] Blood 11/12/2023 6:04 AM EST 11/12/2023 6:39 AM EST Narrative Resulting Agency Comment Spec In Lab Barbie Long HIRAL HEMATOLOGY ORDERAB LES [facility] [place] [address] * Phosphorus (11/12/2023 6:04 AM EST) Phosphorus 2.8 2.5 - 4.5 mg/dL [facility] Blood 11/12/2023 6:04 AM EST 11/12/2023 6:39 AM EST Narrative Resulting Agency Comment Spec In Lab Barbie Long CHEMICAL ENGINEERING TECHNOLOGIST CHEMISTRY ORDERABL ES Performing Organization Address [facility] Co de Phone Number [facility] [place] [address] * Magnesium (11/12/2023 6:04 AM EST) Magnesium 0.84 0.69 - 1.07 mmol/L [facility] Blood 11/12/2023 6:04 AM EST 11/12/2023 6:39 AM EST Narrative Resulting Agency Comment Spec In Lab Barbie Long CHEMICAL ENGINEERING TECHNOLOGIST CHEMISTRY ORDERABL ES Performing Organization Address [facility] Phone Number [facility] [place] [address] * (ABNORMAL) Basic Metabolic Panel (non-fasting) (11/12/2023 6:04 AM EST) Glucose 159 65 - 199 mg/dL [facility] Comment:Diabetes: >=200 mg/d L plus symptoms Blood Urea Nitrogen 24(H) 10 - 20 mg/dL [facility] Creatinine 0.87 0.80 - 1.50 mg/dL [facility] Sodium 139 135 - 145 mmol/L [facility] Potassium 4.1 3.5 - 5.0 mmol/L [facility] Comment: Please note: ??Patients with WBC >100,000 may have falsely elevated Potassium levels. ??For accurate Potassium quantification in these patients send serum separator tube (gold top) for subsequent determinations. ??Contact the Clinical Chemistry Laboratory if there are any questions. Chloride 104 98 - 107 mmol/L [facility] Carbon Dioxide 23 22 - 31 mmol/L [facility] Anion Gap 12 5 - 15 mmol/L [facility] Calcium 9.0 8.5 - 10.5 mg/dL [facility] Est Glomerular Filtration Rate 87 >=60 mL/min/1. 73 m?? [facility] Comment: This patient's [...] APRN CHEMISTRY ORDERABL ES Performing Organization Address [facility] Co de Phone Number [facility] [place] [address] * POCT Glucose (11/12/2023 3:57 AM EST) Glucose, POC 157 65 - 199 mg/dL [facility] Comment: Supplemental ranges: <140 mg/dL before meals <180 mg/dL all other times of the day Blood 11/12/2023 3:57 AM EST 11/12/2023 3:57 AM EST Galilea Fournier MD POINT OF CARE TEST O RDERABLES Performing Organization Address [facility] Co de Phone Number [facility] [place] [address] * POCT Glucose (11/11/2023 11:33 PM EST) Glucose, POC 138 65 - 199 mg/dL [facility] Comment: Supplemental ranges: <140 mg/dL before meals <180 mg/dL all other times of the day Blood 11/11/2023 11:3 3 PM EST 11/11/2023 11:33 PM EST Galilea Fournier MD POINT OF CARE TEST O RDERABLES Performing Organization Address [facility] Co de Phone Number [facility] [place] [address] * POCT Glucose (11/11/2023 8:26 PM EST) Glucose, POC 149 65 - 199 mg/dL [facility] Comment: Supplemental ranges: <140 mg/dL before meals <180 mg/dL all other times of the day Blood 11/11/2023 8:26 PM EST 11/11/2023 8:26 PM EST Galilea Fournier MD POINT OF CARE TEST O RDERAJERRY [facility] [place] [address] * (ABNORMAL) POCT Glucose (11/11/2023 3:52 PM EST) Glucose, POC 228(H) 65 - 199 mg/dL [facility] Comment: Supplemental ranges: <140 mg/dL before meals <180 mg/dL all other times of the day Blood 11/11/2023 3:52 PM EST 11/11/2023 3:52 PM EST Galilea Fournier MD POINT OF CARE TEST O RDERAJERRY [facility] [place] [address] * POCT Glucose (11/11/2023 11:44 AM EST) Glucose, POC 150 65 - 199 mg/dL [facility] Comment: Supplemental ranges: <140 mg/dL before meals <180 mg/dL all other times of the day Blood 11/11/2023 11:4 4 AM EST 11/11/2023 11:44 AM EST Galilea Fournier MD POINT OF CARE TEST O RDERAJERRY [facility] [place] [address] * POCT Glucose (11/11/2023 6:13 AM EST) Glucose, POC 142 65 - 199 mg/dL [facility] Comment: Supplemental ranges: <140 mg/dL before meals <180 mg/dL all other times of the day Blood 11/11/2023 6:13 AM EST 11/11/2023 6:13 AM EST Galilea Fournier MD POINT OF CARE TEST O RDERABLES [facility] [place] [address] * (ABNORMAL) Differential, Automated (11/11/2023 4:45 AM EST) Pathologist [facility] Neutrophil % 67.5 % [facility] Neutrophil Absolute 5.02 1.70 - 6.10 x10(3)/mc L [facility] Lymph % 18.8 % [facility] LABORATORY Lymphocytes Abs 1.4 0.9 - 3.2 x10(3)/[facility] LABORATORY Monocyte % 10.8 % [facility] LABORATORY Monocyte Abs 0.8 0.3 - 0.9 x10(3)/mc L [facility] Eos % 1.5 % [facility] LAB[facility] Eosinophils Abs 0.1 0.0 - 0.4 x10(3)/[facility] LABORATORY Basophil % 0.7 % [facility] LABORATORY Baso Absolute 0.0 0.0 - 0.1 x10(3)/mc L [facility] Immature Gran % 0.70 % [facility] Comment: Immature granulocytes(IG's)percentage and absolute count will include metamyelocytes, myelocytes, and promyelocytes. Blood smears from CBCs yielding IG's will be scanned manually for concordance. If this scan disagrees with the automated IG or if promyelocytes are noted, a manual differential will be performed. Immature Gran Absolute 0.05(H) 0.00 - 0.04 x10(3)/mc L [facility] Blood 11/11/2023 4:45 AM EST 11/11/2023 5:19 AM EST Narrative Resulting Agency Comment Spec In Lab Barbie L Miles CHEMICAL ENGINEERING TECHNOLOGIST HEMATOLOGY ORDERAB LES [facility] [place] [address] * (ABNORMAL) Hemogram (11/11/2023 4:45 AM EST) White Blood Cell 7.4 4.0 - 9.5 x10(3)/mc L [facility] Red Blood Cell 5.01 4.58 - 5.54 x10(6)/mc L [facility] Hemoglobin 15.8 13.7 - 16.5 g/dL [facility] Hematocrit 46.0 40.5 - 48.5 % [facility] Mean Cell Volume 91.8 82.9 - 93.1 fL [facility] Mean Cell Hemoglobin 31.5 27.5 - 32.1 pg [facility] Mean Cell Hemoglobin Concentration 34.3 32.0 - 35.7 g/dL [facility] Platelet 138(L) 145 - 357 x10(3)/mc L [facility] RDW Standard Deviation 43.7 36.0 - 45.0 fL [facility] RDW coefficient of variation 12.9 11.4 - 13.8 % [facility] Mean Platelet Volume 10.9 7.6 - 12.9 fL [facility] NRBC% auto 0.0 % [facility] ITAL LABORATORY NRBC Absolute 0.000 0.000 - 0.000 x10(3)/mc L [facility] Blood 11/11/2023 4:45 AM EST 11/11/2023 5:19 AM EST Narrative Resulting Agency Comment Spec In Lab Barbie Long APRN HEMATOLOGY ORDERAB LES [facility] [place] [address] * Phosphorus (11/11/2023 4:45 AM EST) Phosphorus 2.8 2.5 - 4.5 mg/dL [facility] Blood 11/11/2023 4:45 AM EST 11/11/2023 5:19 AM EST Narrative Resulting Agency Comment Spec In Lab Barbie Long CHEMICAL ENGINEERING TECHNOLOGIST CHEMISTRY ORDERABL ES Performing Organization Address City/[facility]/ZIP Co de Phone Number [facility] [place] [address] * Magnesium (11/11/2023 4:45 AM EST) Magnesium 0.86 0.69 - 1.07 mmol/L [facility] Blood 11/11/2023 4:45 AM EST 11/11/2023 5:19 AM EST Narrative Resulting Agency Comment Spec In Lab Barbie Long CHEMICAL ENGINEERING TECHNOLOGIST CHEMISTRY ORDERABL ES Performing Organization Address [facility] Co de Phone Number [facility] [place] [address] * (ABNORMAL) Basic Metabolic Panel (non-fasting) (11/11/2023 4:45 AM EST) Glucose 206(H) 65 - 199 mg/dL [facility] Comment:Diabetes: >=200 mg/d L plus symptoms Blood Urea Nitrogen 20 10 - 20 mg/dL [facility] Creatinine 0.79(L) 0.80 - 1.50 mg/dL [facility] Sodium 139 135 - 145 mmol/L [facility] Potassium 3.9 3.5 - 5.0 mmol/L [facility] Comment: Please note: ??Patients with WBC >100,000 may have falsely elevated Potassium levels. ??For accurate Potassium quantification in these patients send serum separator tube (gold top) for subsequent determinations. ??Contact the Clinical Chemistry Laboratory if there are any questions. Chloride 103 98 - 107 mmol/L [facility] Carbon Dioxide 25 22 - 31 mmol/L [facility] Anion Gap 11 5 - 15 mmol/L [facility] Calcium 9.1 8.5 - 10.5 mg/dL [facility] Est Glomerular Filtration Rate 89 >=60 mL/min/1. 73 m?? [facility] Comment: This patient's estimated GFR [...] APRN CHEMISTRY ORDERABL ES Performing Organization Address [facility] Co de Phone Number [facility] [place] [address] * POCT Glucose (11/11/2023 3:59 AM EST) Glucose, POC 198 65 - 199 mg/dL [facility] Comment: Supplemental ranges: <140 mg/dL before meals <180 mg/dL all other times of the day Blood 11/11/2023 3:59 AM EST 11/11/2023 3:59 AM EST Galilea Fournier MD POINT OF CARE TEST O RDERABLES Performing Organization Address [facility] Co de Phone Number [facility] [place] [address] * POCT Glucose (11/10/2023 11:06 PM EST) Glucose, POC 134 65 - 199 mg/dL [facility] Comment: Supplemental ranges: <140 mg/dL before meals <180 mg/dL all other times of the day Blood 11/10/2023 11:0 6 PM EST 11/10/2023 11:06 PM EST Galilea Fournier MD POINT OF CARE TEST O RDERABLES Performing Organization Address [facility] Co de Phone Number [facility] [place] [address] * POCT Glucose (11/10/2023 8:16 PM EST) Glucose, POC 152 65 - 199 mg/dL [facility] Comment: Supplemental ranges: <140 mg/dL before meals <180 mg/dL all other times of the day Blood 11/10/2023 8:16 PM EST 11/10/2023 8:16 PM EST Galilea Fournier MD POINT OF CARE TEST O RDERABLES Performing Organization Address City/[facility] Co de Phone Number [facility] [place] [address] * POCT Glucose (11/10/2023 3:58 PM EST) Glucose, POC 150 65 - 199 mg/dL [facility] Comment: Supplemental ranges: <140 mg/dL before meals <180 mg/dL all other times of the day Blood 11/10/2023 3:58 PM EST 11/10/2023 3:58 PM EST Galilea Fournier MD POINT OF CARE TEST O RDERAJERRY Performing Organization Address [facility] Co de Phone Number [facility] [place] [address] * POCT Glucose (11/10/2023 11:44 AM EST) Glucose, POC 180 65 - 199 mg/dL [facility] Comment: Supplemental ranges: <140 mg/dL before meals <180 mg/dL all other times of the day Blood 11/10/2023 11:4 4 AM EST 11/10/2023 11:44 AM EST Galilea Fournier MD POINT OF CARE TEST O RDERABLES Performing Organization Address City/[facility] Co de Phone Number [facility] [place] [address] * POCT Glucose (11/10/2023 7:53 AM EST) Glucose, POC 172 65 - 199 mg/dL [facility] Comment: Supplemental ranges: <140 mg/dL before meals <180 mg/dL all other times of the day Blood 11/10/2023 7:53 AM EST 11/10/2023 7:53 AM EST Galilea Fournier MD POINT OF CARE TEST O RDERABLES Performing Organization Address City/[facility]/ZIP Co de Phone Number [facility] [place] [address] * POCT Glucose (11/10/2023 6:13 AM EST) Glucose, POC 124 65 - 199 mg/dL [facility] Comment: Supplemental ranges: <140 mg/dL before meals <180 mg/dL all other times of the day Blood 11/10/2023 6:13 AM EST 11/10/2023 6:13 AM EST Galilea Fournier MD POINT OF CARE TEST O RADHA Performing Organization Address [facility] Co de Phone Number [facility] [place] [address] * Differential, Automated (11/10/2023 5:05 AM EST) Neutrophil % 68.4 % [facility] Neutrophil Absolute 5.43 1.70 - 6.10 x10(3)/[facility] LABORATORY Lymph % 18.5 % [facility] Lymphocytes Abs 1.5 0.9 - 3.2 x10(3)/[facility] LABORATORY Monocyte % 10.8 % [facility] LABORATORY Monocyte Abs 0.9 0.3 - 0.9 x10(3)/[facility] LABORATORY Eos % 1.4 % [facility] Eosinophils Abs 0.1 0.0 - 0.4 x10(3)/[facility] LABORATORY Basophil % 0.4 % [facility] Baso Absolute 0.0 0.0 - 0.1 x10(3)/[facility] LABORATORY Immature Gran % 0.50 % [facility] Comment: Immature granulocytes(IG's)percentage and absolute count will include metamyelocytes, myelocytes, and promyelocytes. Blood smears from CBCs yielding IG's will be scanned manually for concordance. If this scan disagrees with the automated IG or if promyelocytes are noted, a manual differential will be performed. Immature Gran Absolute 0.04 0.00 - 0.04 x10(3)/mcL [facility] Blood 11/10/2023 5:05 AM EST 11/10/2023 5:40 AM EST Narrative Resulting Agency Comment Spec In Lab Barbie Long CHEMICAL ENGINEERING TECHNOLOGIST HEMATOLOGY ORDERAB LES Performing Organization Address City/[facility]/ZIP Co de Phone Number [facility] [place] [address] * (ABNORMAL) Hemogram (11/10/2023 5:05 AM EST) White Blood Cell 7.9 4.0 - 9.5 x10(3)/mc L [facility] Red Blood Cell 5.05 4.58 - 5.54 x10(6)/mc L [facility] Hemoglobin 16.1 13.7 - 16.5 g/dL [facility] Hematocrit 46.1 40.5 - 48.5 % [facility] Mean Cell Volume 91.3 82.9 - 93.1 fL [facility] Mean Cell Hemoglobin 31.9 27.5 - 32.1 pg [facility] Mean Cell Hemoglobin Concentration 34.9 32.0 - 35.7 g/dL [facility] Platelet 135(L) 145 - 357 x10(3)/mc L [facility] RDW Standard Deviation 43.1 36.0 - 45.0 fL [facility] RDW coefficient of variation 12.9 11.4 - 13.8 % [facility] Mean Platelet Volume 10.8 7.6 - 12.9 fL [facility] NRBC% auto 0.0 % [facility] LABORATORY NRBC Absolute 0.000 0.000 - 0.000 x10(3)/mc L [facility] Blood 11/10/2023 5:05 AM EST 11/10/2023 5:40 AM EST Narrative Resulting Agency Comment Spec In Lab Barbie Long CHEMICAL ENGINEERING TECHNOLOGIST HEMATOLOGY ORDERAB LES [facility] [place] [address] * Phosphorus (11/10/2023 5:05 AM EST) Phosphorus 3.4 2.5 - 4.5 mg/dL [facility] Blood 11/10/2023 5:05 AM EST 11/10/2023 5:40 AM EST Narrative Resulting Agency Comment Spec In Lab Barbie Long CHEMICAL ENGINEERING TECHNOLOGIST CHEMISTRY ORDERABL ES Performing Organization Address [facility] de Phone Number [facility] [place] [address] * Magnesium (11/10/2023 5:05 AM EST) Magnesium 0.90 0.69 - 1.07 mmol/L [facility] Blood 11/10/2023 5:05 AM EST 11/10/2023 5:40 AM EST Narrative Resulting Agency Comment Spec In Lab Barbie Long CHEMICAL ENGINEERING TECHNOLOGIST CHEMISTRY ORDERABL ES Performing Organization Address [facility] de Phone Number [facility] [place] [address] * (ABNORMAL) Basic Metabolic Panel (non-fasting) (11/10/2023 5:05 AM EST) Glucose 141 65 - 199 mg/dL [facility] Comment:Diabetes: >=200 mg/d L plus symptoms Blood Urea Nitrogen 23(H) 10 - 20 mg/dL [facility] Creatinine 0.97 0.80 - 1.50 mg/dL [facility] Sodium 141 135 - 145 mmol/L [facility] Potassium 4.2 3.5 - 5.0 mmol/L [facility] Comment: Please note: ??Patients with WBC >100,000 may have falsely elevated Potassium levels. ??For accurate Potassium quantification in these patients send serum separator tube (gold top) for subsequent determinations. ??Contact the Clinical Chemistry Laboratory if there are any questions. Chloride 104 98 - 107 mmol/L [facility] Carbon Dioxide 25 22 - 31 mmol/L [facility] Anion Gap 12 5 - 15 mmol/L [facility] Calcium 9.1 8.5 - 10.5 mg/dL [facility] Est Glomerular Filtration Rate 78 >=60 mL/min/1. 73 m?? [facility] Comment: This patient's estimated GFR [...] Resulting Agency Comment Spec In Lab Barbie Logn APRN CHEMISTRY ORDERABL ES Performing Organization Address [facility] Co de Phone Number [facility] [place] [address] * POCT Glucose (11/10/2023 3:49 AM EST) Glucose, POC 122 65 - 199 mg/dL [facility] Comment: Supplemental ranges: <140 mg/dL before meals <180 mg/dL all other times of the day Blood 11/10/2023 3:49 AM EST 11/10/2023 3:49 AM EST Galilea Fournier MD POINT OF CARE TEST O RDERABLES [facility] [place] [address] * POCT Glucose (11/09/2023 11:26 PM EST) Glucose, POC 142 65 - 199 mg/dL [facility] Comment: Supplemental ranges: <140 mg/dL before meals <180 mg/dL all other times of the day Blood 11/09/2023 11:2 6 PM EST 11/09/2023 11:26 PM EST Galilea Fournier MD POINT OF CARE TEST O RDERABLES Performing Organization Address City/[facility]/ZIP Co de Phone Number [facility] [place] [address] * POCT Glucose (11/09/2023 8:12 PM EST) Glucose, POC 160 65 - 199 mg/dL [facility] Comment: Supplemental ranges: <140 mg/dL before meals <180 mg/dL all other times of the day Blood 11/09/2023 8:12 PM EST 11/09/2023 8:12 PM EST Galilea Fournier MD POINT OF CARE TEST O RDERABLES Performing Organization Address [facility] Co de Phone Number [facility] [place] [address] * (ABNORMAL) POCT Glucose (11/09/2023 3:15 PM EST) Glucose, POC 235(H) 65 - 199 mg/dL [facility] Comment: Supplemental ranges: <140 mg/dL before meals <180 mg/dL all other times of the day Blood 11/09/2023 3:15 PM EST 11/09/2023 3:15 PM EST Galilea Fournier MD POINT OF CARE TEST O RDERABLES Performing Organization Address [facility] Co de Phone Number [facility] [place] [address] * POCT Glucose (11/09/2023 8:40 AM EST) Glucose, POC 157 65 - 199 mg/dL [facility] Comment: Supplemental ranges: <140 mg/dL before meals <180 mg/dL all other times of the day Blood 11/09/2023 8:40 AM EST 11/09/2023 8:40 AM EST Galilea Fournier MD POINT OF CARE TEST O RDERABLES Performing Organization Address City/[facility] Co de Phone Number [facility] [place] [address] * (ABNORMAL) Differential, Automated (11/09/2023 6:18 AM EST) Neutrophil % 70.3 % [facility] Neutrophil Absolute 6.30(H) 1.70 - 6.10 x10(3)/ L [facility] Lymph % 16.2 % [facility] Lymphocytes Abs 1.4 0.9 - 3.2 x10(3)/ L [facility] Monocyte % 11.3 % [facility] Monocyte Abs 1.0(H) 0.3 - 0.9 x10(3)/ L [facility] Eos % 1.2 % [facility] Eosinophils Abs 0.1 0.0 - 0.4 x10(3)/[facility] LABORATORY Basophil % 0.6 % [facility] Baso Absolute 0.0 0.0 - 0.1 x10(3)/ L [facility] Immature Gran % 0.40 % [facility] Comment: Immature granulocytes(IG's)percentage and absolute count will include metamyelocytes, myelocytes, and promyelocytes. Blood smears from CBCs yielding IG's will be scanned manually for concordance. If this scan disagrees with the automated IG or if promyelocytes are noted, a manual differential will be performed. Immature Gran Absolute 0.04 0.00 - 0.04 x10(3)/[facility] LABORATORY Blood 11/09/2023 6:18 AM EST 11/09/2023 6:29 AM EST Narrative Resulting Agency Comment Spec In Lab Barbie Gail Long APRN HEMATOLOGY ORDERAB LES [facility] [place] [address] * (ABNORMAL) Hemogram (11/09/2023 6:18 AM EST) White Blood Cell 9.0 4.0 - 9.5 x10(3)/ L [facility] Red Blood Cell 5.19 4.58 - 5.54 x10(6)/[facility] LABORATORY Hemoglobin 16.3 13.7 - 16.5 g/dL [facility] Hematocrit 47.1 40.5 - 48.5 % [facility] Mean Cell Volume 90.8 82.9 - 93.1 fL [facility] Mean Cell Hemoglobin 31.4 27.5 - 32.1 pg [facility] [facility] Mean Cell Hemoglobin Concentration 34.6 32.0 - 35.7 g/dL [facility] Platelet 130(L) 145 - 357 x10(3)/mc L [facility] RDW Standard Deviation 42.6 36.0 - 45.0 fL [facility] RDW coefficient of variation 12.9 11.4 - 13.8 % [facility] Mean Platelet Volume 10.2 7.6 - 12.9 fL [facility] NRBC% auto 0.0 % [facility] ITAL LABORATORY NRBC Absolute 0.000 0.000 - 0.000 x10(3)/mc L [facility] Blood 11/09/2023 6:18 AM EST 11/09/2023 6:29 AM EST Narrative Resulting Agency Comment Spec In Lab Barbie Long CHEMICAL ENGINEERING TECHNOLOGIST HEMATOLOGY ORDERAB LES Performing Organization Address City/[facility]/ZIP Co de Phone Number [facility] [place] [address] * Phosphorus (11/09/2023 6:18 AM EST) Phosphorus 2.8 2.5 - 4.5 mg/dL [facility] Blood 11/09/2023 6:18 AM EST 11/09/2023 6:29 AM EST Narrative Resulting Agency Comment Spec In Lab Barbie Long CHEMICAL ENGINEERING TECHNOLOGIST CHEMISTRY ORDERABL ES Performing Organization Address City/[facility]/ZIP Co de Phone Number [facility] [place] [address] * Magnesium (11/09/2023 6:18 AM EST) Magnesium 0.93 0.69 - 1.07 mmol/L [facility] Blood 11/09/2023 6:18 AM EST 11/09/2023 6:29 AM EST Narrative Resulting Agency Comment Spec In Lab Barbie Long HIRAL CHEMISTRY ORDERABL ES [facility] [place] [address] * (ABNORMAL) Basic Metabolic Panel (non-fasting) (11/09/2023 6:18 AM EST) Glucose 167 65 - 199 mg/dL [facility] Comment:Diabetes: >=200 mg/d L plus symptoms Blood Urea Nitrogen 22(H) 10 - 20 mg/dL [facility] Creatinine 0.74(L) 0.80 - 1.50 mg/dL [facility] Sodium 140 135 - 145 mmol/L [facility] Potassium 4.0 3.5 - 5.0 mmol/L [facility] Comment: Please note: ??Patients with WBC >100,000 may have falsely elevated Potassium levels. ??For accurate Potassium quantification in these patients send serum separator tube (gold top) for subsequent determinations. ??Contact the Clinical Chemistry Laboratory if there are any questions. Chloride 105 98 - 107 mmol/L [facility] Carbon Dioxide 24 22 - 31 mmol/L [facility] Anion Gap 11 5 - 15 mmol/L [facility] Calcium 8.7 8.5 - 10.5 mg/dL [facility] Est Glomerular Filtration Rate 91 >=60 mL/min/1. 73 m?? [facility] Comment: This patient's estimated GFR [...] HIRAL CHEMISTRY ORDERABL ES Performing Organization Address [facility] Co de Phone Number [facility] [place] [address] * POCT Glucose (11/08/2023 9:00 PM EST) Glucose, POC 171 65 - 199 mg/dL [facility] Comment: Supplemental ranges: <140 mg/dL before meals <180 mg/dL all other times of the day Blood 11/08/2023 9:00 PM EST 11/08/2023 9:00 PM EST Galilea Fournier MD POINT OF CARE TEST O RDERABLES Performing Organization Address [facility] Co de Phone Number [facility] [place] [address] * (ABNORMAL) POCT Glucose (11/08/2023 5:26 PM EST) Glucose, POC 247(H) 65 - 199 mg/dL [facility] Comment: Supplemental ranges: <140 mg/dL before meals <180 mg/dL all other times of the day Blood 11/08/2023 5:26 PM EST 11/08/2023 5:26 PM EST Galilea Fournier MD POINT OF CARE TEST O RDERABLES Performing Organization Address [facility] de Phone Number [facility] [place] [address] * MRI Brain wo Contrast (11/08/2023 1:19 [...] ? Electronically signed by: Edson Danielle DO, [facility] ??([phone]), at 11/08/2023 1:34 PM Narrative 11/08/2023 1:34 [...] patients who have questions please contactthe health childcare center director that requested your imaging first. Barbie Long APRN IMG MRI ORDERABLES * (ABNORMAL) POCT Glucose (11/08/2023 11:53 AM EST) Glucose, POC 213(H) 65 - 199 mg/dL [facility] Comment: Supplemental ranges: <140 mg/dL before meals <180 mg/dL all other times of the day Blood 11/08/2023 11:5 3 AM EST 11/08/2023 11:53 AM EST Galilea Fournier MD POINT OF CARE TEST O RDERABLES [facility] [place] [address] * (ABNORMAL) POCT Glucose (11/08/2023 8:33 AM EST) Glucose, POC 258(H) 65 - 199 mg/dL [facility] Comment: Supplemental ranges: <140 mg/dL before meals <180 mg/dL all other times of the day Blood 11/08/2023 8:33 AM EST 11/08/2023 8:33 AM EST Galilea Fournier MD POINT OF C[place] [address] * (ABNORMAL) Differential, Automated (11/08/2023 2:27 AM EST) Neutrophil % 72.0 % [facility] Neutrophil Absolute 7.19(H) 1.70 - 6.10 x10(3)/mc L [facility] Lymph % 15.0 % [facility] Lymphocytes Abs 1.5 0.9 - 3.2 x10(3)/mc L [facility] Monocyte % 11.6 % [facility] Monocyte Abs 1.2(H) 0.3 - 0.9 x10(3)/mc L [facility] Eos % 0.7 % [facility] Eosinophils Abs 0.1 0.0 - 0.4 x10(3)/mc L [facility] Basophil % 0.4 % [facility] Baso Absolute 0.0 0.0 - 0.1 x10(3)/mc L [facility] Immature Gran % 0.30 % [facility] Comment: Immature granulocytes(IG's)percentage and absolute count will include metamyelocytes, myelocytes, and promyelocytes. Blood smears from CBCs yielding IG's will be scanned manually for concordance. If this scan disagrees with the automated IG or if promyelocytes are noted, a manual differential will be performed. Immature Gran Absolute 0.03 0.00 - 0.04 x10(3)/mc L [facility] Blood 11/08/2023 2:27 AM EST 11/08/2023 2:49 AM EST Narrative Resulting Agency Comment Spec In Lab Miguel Arias DO HEMATOLOGY ORDERABLE S Performing Organization Address City/[facility]/[place] [address] * (ABNORMAL) Hemogram (11/08/2023 2:27 AM EST) White Blood Cell 10.0(H) 4.0 - 9.5 x10(3)/mc L [facility] Red Blood Cell 5.00 4.58 - 5.54 x10(6)/mc L [facility] Hemoglobin 15.6 13.7 - 16.5 g/dL [facility] Hematocrit 45.3 40.5 - 48.5 % [facility] Mean Cell Volume 90.6 82.9 - 93.1 fL [facility] Mean Cell Hemoglobin 31.2 27.5 - 32.1 pg [facility] Mean Cell Hemoglobin Concentration 34.4 32.0 - 35.7 g/dL [facility] Platelet 152 145 - 357 x10(3)/mc L [facility] RDW Standard Deviation 42.6 36.0 - 45.0 fL [facility] RDW coefficient of variation 12.9 11.4 - 13.8 % [facility] Mean Platelet Volume 10.6 7.6 - 12.9 fL [facility] NRBC% auto 0.0 % [facility] ITAL LABORATORY NRBC Absolute 0.000 0.000 - 0.000 x10(3)/ L [facility] Blood 11/08/2023 2:27 AM EST 11/08/2023 2:49 AM EST Narrative Resulting Agency Comment Spec In Lab Miguel Arias DO HEMATOLOGY ORDERABLE S [facility] [place] [address] * Phosphorus (11/08/2023 2:27 AM EST) Phosphorus 3.2 2.5 - 4.5 mg/dL [facility] Blood 11/08/2023 2:27 AM EST 11/08/2023 2:49 AM EST Narrative Resulting Agency Comment Spec In Lab Barbie Long CHEMICAL ENGINEERING TECHNOLOGIST CHEMISTRY ORDERABL ES [facility] [place] [address] * Magnesium (11/08/2023 2:27 AM EST) Magnesium 0.89 0.69 - 1.07 mmol/L [facility] Blood 11/08/2023 2:27 AM EST 11/08/2023 2:49 AM EST Narrative Resulting Agency Comment Spec In Lab Barbie Long HIRAL CHEMISTRY ORDERABL ES [facility] [place] [address] * (ABNORMAL) Basic Metabolic Panel (non-fasting) (11/08/2023 2:27 AM EST) Glucose 229(H) 65 - 199 mg/dL [facility] Comment:Diabetes: >=200 mg/d L plus symptoms Blood Urea Nitrogen 26(H) 10 - 20 mg/dL [facility] Creatinine 0.88 0.80 - 1.50 mg/dL [facility] Sodium 142 135 - 145 mmol/L [facility] Potassium 4.2 3.5 - 5.0 mmol/L [facility] Comment: Please note: ??Patients with WBC >100,000 may have falsely elevated Potassium levels. ??For accurate Potassium quantification in these patients send serum separator tube (gold top) for subsequent determinations. ??Contact the Clinical Chemistry Laboratory if there are any questions. Chloride 107 98 - 107 mmol/L [facility] Carbon Dioxide 23 22 - 31 mmol/L [facility] Anion Gap 12 5 - 15 mmol/L [facility] Calcium 8.8 8.5 - 10.5 mg/dL [facility] Est Glomerular Filtration Rate 86 >=60 mL/min/1. 73 m?? [facility] Comment: This patient's estimated GFR [...] SOLORION CHEMISTRY ORDERABL ES Performing Organization Address [facility] Co de Phone Number [facility] [place] [address] * (ABNORMAL) POCT Glucose (11/07/2023 8:12 PM EST) Glucose, POC 211(H) 65 - 199 mg/dL [facility] Comment: Supplemental ranges: <140 mg/dL before meals <180 mg/dL all other times of the day Blood 11/07/2023 8:12 PM EST 11/07/2023 8:12 PM EST Galilea Fournier MD POINT OF CARE TEST O RDERAJERRY Performing Organization Address [facility] Co de Phone Number [facility] [place] [address] * (ABNORMAL) POCT Glucose (11/07/2023 5:58 PM EST) Glucose, POC 260(H) 65 - 199 mg/dL [facility] Comment: Supplemental ranges: <140 mg/dL before meals <180 mg/dL all other times of the day Blood 11/07/2023 5:58 PM EST 11/07/2023 5:58 PM EST Galilea Fournier MD POINT OF CARE TEST O RDERABLES Performing Organization Address City/[facility] Co de Phone Number [facility] [place] [address] * (ABNORMAL) POCT Glucose (11/07/2023 12:03 PM EST) Glucose, POC 288(H) 65 - 199 mg/dL [facility] Comment: Supplemental ranges: <140 mg/dL before meals <180 mg/dL all other times of the day Blood 11/07/2023 12:0 3 PM EST 11/07/2023 12:03 PM EST Fernanda Pineda MD POINT [place] [address] * CT Head wo Contrast (Generic) (11/07/2023 [...] ? Electronically signed by: Edson Danielle DO, [facility] ??([phone]), at 11/07/2023 2:19 PM Narrative 11/07/2023 2:19 [...] patients who have questions please contactthe health childcare center director that requested your imaging first. Barbie Orr MD IM CT ORDERABLES * POCT Glucose (11/07/2023 8:13 AM EST) [facility] Signature Glucose, POC 178 65 - 199 mg/dL [facility] Comment: Supplemental ranges: <140 mg/dL before meals <180 mg/dL all other times of the day Blood 11/07/2023 8:13 AM EST 11/07/2023 8:13 AM EST Fernanda Pineda MD POINT OF CARE TEST O RDERABLES [facility] [place] [address] * (ABNORMAL) Differential, Automated (11/07/2023 2:30 AM EST) Neutrophil % 71.0 % [facility] Neutrophil Absolute 6.89(H) 1.70 - 6.10 x10(3)/[facility] LABORATORY Lymph % 17.3 % [facility] Lymphocytes Abs 1.7 0.9 - 3.2 x10(3)/[facility] LABORATORY Monocyte % 10.5 % [facility] Monocyte Abs 1.0(H) 0.3 - 0.9 x10(3)/[facility] LABORATORY Eos % 0.5 % [facility] Eosinophils Abs 0.0 0.0 - 0.4 x10(3)/[facility] LABORATORY Basophil % 0.4 % [facility] Baso Absolute 0.0 0.0 - 0.1 x10(3)/[facility] LABORATORY Immature Gran % 0.30 % [facility] Comment: Immature granulocytes(IG's)percentage and absolute count will include metamyelocytes, myelocytes, and promyelocytes. Blood smears from CBCs yielding IG's will be scanned manually for concordance. If this scan disagrees with the automated IG or if promyelocytes are noted, a manual differential will be performed. Immature Gran Absolute 0.03 0.00 - 0.04 x10(3)/[facility] LABORATORY Blood 11/07/2023 2:30 AM EST 11/07/2023 2:45 AM EST Narrative Resulting Agency Comment Spec In Lab Natalie TRIPP HEMATOLOGY ORDERABLE S [facility] [place] [address] * (ABNORMAL) Hemogram (11/07/2023 2:30 AM EST) White Blood Cell 9.7(H) 4.0 - 9.5 x10(3)/[facility] LABORATORY Red Blood Cell 5.12 4.58 - 5.54 x10(6)/[facility] LABORATORY Hemoglobin 15.8 13.7 - 16.5 g/dL [facility] Hematocrit 46.4 40.5 - 48.5 % [facility] Mean Cell Volume 90.6 82.9 - 93.1 fL [facility] Mean Cell Hemoglobin 30.9 27.5 - 32.1 pg [facility] Mean Cell Hemoglobin Concentration 34.1 32.0 - 35.7 g/dL [facility] Platelet 154 145 - 357 x10(3)/mc L [facility] RDW Standard Deviation 42.4 36.0 - 45.0 fL [facility] RDW coefficient of variation 12.8 11.4 - 13.8 % [facility] Mean Platelet Volume 10.5 7.6 - 12.9 fL [facility] NRBC% auto 0.0 % [facility] LABORATORY NRBC Absolute 0.000 0.000 - 0.000 x10(3)/mc L [facility] Blood 11/07/2023 2:30 AM EST 11/07/2023 2:45 AM EST Narrative Resulting Agency Comment Spec In Lab Natalie TRIPP HEMATOLOGY ORDERABLE S Performing Organization Address City/[facility]/ZIP Co de Phone Number [facility] [place] [address] * Phosphorus (11/07/2023 2:30 AM EST) Phosphorus 2.9 2.5 - 4.5 mg/dL [facility] Blood 11/07/2023 2:30 AM EST 11/07/2023 2:45 AM EST Narrative Resulting Agency Comment Spec In Lab Barbie Long APRN CHEMISTRY ORDERABL ES Performing Organization Address City/[facility]/ZIP Co de Phone Number [facility] [place] [address] * Magnesium (11/07/2023 2:30 AM EST) Magnesium 0.94 0.69 - 1.07 mmol/L [facility] Blood 11/07/2023 2:30 AM EST 11/07/2023 2:45 AM EST Narrative Resulting Agency Comment Spec In Lab Barbie Long CHEMICAL ENGINEERING TECHNOLOGIST CHEMISTRY ORDERABL ES Performing Organization Address [facility] Co de Phone Number [facility] [place] [address] * (ABNORMAL) Basic Metabolic Panel (non-fasting) (11/07/2023 2:30 AM EST) Glucose 164 65 - 199 mg/dL [facility] Comment:Diabetes: >=200 mg/d L plus symptoms Blood Urea Nitrogen 19 10 - 20 mg/dL [facility] Creatinine 0.79(L) 0.80 - 1.50 mg/dL [facility] Sodium 138 135 - 145 mmol/L [facility] Potassium 3.9 3.5 - 5.0 mmol/L [facility] Comment: Please note: ??Patients with WBC >100,000 may have falsely elevated Potassium levels. ??For accurate Potassium quantification in these patients send serum separator tube (gold top) for subsequent determinations. ??Contact the Clinical Chemistry Laboratory if there are any questions. Chloride 102 98 - 107 mmol/L [facility] Carbon Dioxide 24 22 - 31 mmol/L [facility] Anion Gap 12 5 - 15 mmol/L [facility] Calcium 9.0 8.5 - 10.5 mg/dL [facility] Est Glomerular Filtration Rate 89 >=60 mL/min/1. 73 m?? [facility] Comment: This patient's estimated GFR [...] Agency Comment Spec In Lab Barbie Long CHEMICAL ENGINEERING TECHNOLOGIST CHEMISTRY ORDERABL ES Performing Organization Address City/[facility]/ZIP Co de Phone Number [facility] [place] [address] * MRI Brain wo Contrast (11/06/2023 10:08 [...] patients who have questions please contactthe health childcare center director that requested your imaging first. Barbie Orr MD IM MRI ORDERABLES * (ABNORMAL) POCT Glucose (11/06/2023 8:58 PM EST) Glucose, POC 219(H) 65 - 199 mg/dL [facility] Comment: Supplemental ranges: <140 mg/dL before meals <180 mg/dL all other times of the day Blood 11/06/2023 8:58 PM EST 11/06/2023 8:58 PM EST Fernanda Pineda MD POINT OF CARE TEST O RDERAJERRY Performing Organization Address City/[facility]/ZIP Co de Phone Number [facility] [place] [address] * (ABNORMAL) POCT Glucose (11/06/2023 4:27 PM EST) Glucose, POC 229(H) 65 - 199 mg/dL [facility] Comment: Supplemental ranges: <140 mg/dL before meals <180 mg/dL all other times of the day Blood 11/06/2023 4:27 PM EST 11/06/2023 4:27 PM EST Fernanda Pineda MD POINT OF CARE TEST O RADAH Performing Organization Address City/[facility]/ZIP Co de Phone Number [facility] [place] [address] * ECHO COMPLETE (11/06/2023 3:57 PM EST) EF 40 HEARTLAB SYSTEM Anatomical Region Laterality Modality Cardiac Other 11/06/2023 3:19 PM EST Narrative 11/06/2023 4:19 PM EST [address] [place] [address] ? Echocardiogram Report Name: KOKO ZAMORA ?Study Date: 11/06/2023 03:19 PMBP: 134/81 mmHg ? Patient Location: [facility] 0340 A : 1940 ? Height: 168 cm ? Account: [id number] Age: 83 yrs ? Weight: 73 kg Gender: Male ?BSA: 1.8 m2 Ordering Physician: FERNANDA PINEDA Referring Physician: UNKNOWN Performed By: Shahram Rojas RDCS Reason For Study: Cerebrovascular accident (CVA), unspecified mechanism Exam Location: [facility]. Interpretation Summary Mildly to moderately [...] for root and ascending on prior) Procedure Complete-97475. The rhythm is atrial fibrillation. Left Ventricle [...] Note Marcelino Padron MD - 11/06/2023 [address] [place] [address] Echocardiogram Report Name: KOKO ZAMORA Study Date: 303:19 PMBP: 134/81 mmHg Patient Location: [id number] A : 1940 Height: 168 cm Account: [id number] Age: 83 yrs Weight: 73 kg Gender: Male BSA: 1.8 m2 Ordering Physician: FERNANDA PINEDA Referring Physician: UNKNOWN Performed By: Shahram Rojas RDCS Reason For Study: Cerebrovascular accident (CVA), unspecified mechanism Exam Location: [facility]. Interpretation Summary Mildly to moderately reduced left ventricular systolic function. [id number]%. 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 The rhythm is atrial fibrillation. Left Ventricle [...] Glucose, POC 212(H) 65 - 199 mg/dL [facility] Comment: Supplemental ranges: <140 mg/dL before meals <180 mg/dL all other times of the day Blood 11/06/2023 2:55 PM EST 11/06/2023 2:55 PM EST Fernanda Pineda MD POINT OF CARE TEST O RDERABLES Performing Organization Address City/State/[facility] Co de Phone Number [facility] [place] [phone] * XR Knee 1-2 Views Right (Generic) [...] requested your imaging first. ? Narrative 11/06/2023 11:57 AM EST EXAMINATION: XR [...] patients who have questions please contactthe health childcare center director that requested your imaging first. Barbie Orr [...] requested your imaging first. ? Narrative 11/06/2023 12:00 PM EST EXAMINATION: XR [...] alignment. No effusion. Soft Tissue Chondrocalcinosis at [facility] or atherosclerotic volar vascularcalcifications. IV catheter placed in antecubital fossa. IMPRESSION 1. No acute fracture. 2. Normal osseous alignment 3. No elbow effusion. Thank you for letting us participate in the care of this patient. If youare a health care provider and have any questions regarding this report,please contact the number below. For patients who have questions please contactthe health childcare center director that requested your imaging first. Barbie Orr [...] requested your imaging first. ? Narrative 11/06/2023 12:00 PM EST EXAMINATION: XR [...] patients who have questions please contactthe health childcare center director that requested your imaging first. Barbie Orr [...] requested your imaging first. ? Narrative 11/06/2023 12:02 PM EST EXAMINATION: XR [...] patients who have questions please contactthe health childcare center director that requested your imaging first. Barbie Orr [...] ? Electronically signed by: Edson Danielle DO, [facility] ??([phone]), at 11/06/2023 11:29 AM Narrative 11/06/2023 11:29 [...] patients who have questions please contactthe health childcare center director that requested your imaging first. Felix Gonzalez [...] requested your imaging first. ? Narrative 11/06/2023 11:29 AM EST EXAMINATION: CT [...] patients who have questions please contactthe health childcare center director that requested your imaging first. Felix Gonzalez [...] patients who have questions please contactthe health childcare center director that requested your imaging first. Felix Gonzalez [...] ? Electronically signed by: Edson Danielle DO, [facility] ??([phone]), at 11/06/2023 11:29 AM Narrative 11/06/2023 11:29 [...] patients who have questions please contactthe health childcare center director that requested your imaging first. Felix Gonzalez [...] contrast. Multiphase CTA of the carotids and lumbee of [place] is performed after the administration of 65cc of Omnipaque 350 intravenous contrast. MIP and 3-D volumetric reconstructions were created. COMPARISON: None FINDINGS: Head: There is no acute intracranial hemorrhage, midline shift, mass effect, hydrocephalus or extra-axial collection. 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 No acute loss of raltiff-white differentiation. Foramen magnum and basilar cisterns are [...] intravenous contrast. Multiphase CTA of the carotidsand lumbee of [place] is performed after the administration [...] patients who have questions please contactthe health childcare center director that requested your imaging first. Barbie Orr MD IMG CT ORDERABLES * EKG 12 Lead (11/06/2023 10:34 AM EST) Pathologist [facility] Ventricular rate 99 BPM MUSE SYSTEM QRS Duration 112 ms MUSE SYSTEM Q-T Interval 388 ms MUSE SYSTEM QTC Calculated (Bezet) 497 ms MUSE SYSTEM Calculated R Kimberly -55 degrees MUSE SYSTEM Calculated T Kimberly 73 degrees MUSE SYSTEM INTERPRETATION Atrial fibrillation [...] 2 VENOUS (11/06/2023 10:11 AM EST) Pathologist [facility] pH, Venous 7.36 7.32 - 7.42 [facility] PCO2, Venous 52(H) 41 - 51 mmHg [facility] PO2, Venous 23(L) 25 - 40 mmHg [facility] Bicarbonate, Venous 28.4 mmol/L [facility] Base Excess, Venous 3.0 mmol/L [facility] Hgb Blood Gas 16.5 13.7 - 16.5 g/dL [facility] Oxyhemoglobin, Venous 42.9 % [facility] Carboxyhemoglob in, Venous 1.5 % [facility] Comment: Nonsmokers: 0.5-1.5% COHB Smokers: Variable, but usually less than 10% Toxic: 20-30% COHB Lethal: Greater than 60% COHB Methemoglobin, Venous 0.3 <=1.5 % [facility] Na Whole Blood 142 135 - 145 mmol/L [facility] K Whole Blood 4.7 3.5 - 5.0 mmol/L [facility] Comment: Please note: Patients with WBC >100,000 may have falsely elevated Potassium levels. Contact the Clinical Chemistry Laboratory if there are any questions. ICa Whole Blood 1.18 1.15 - 1.33 mmol/L [facility] Comment: Note: ??Total bilirubin higher than 20 mg/dL may lead to falsely low ionized calcium. CL Whole Blood 103 98 - 107 mmol/L [facility] Gluc Whole Bld 238(H) 65 - 199 mg/dL [facility] Comment:Diabetes: >=200 mg/d L plus symptoms Lactate WB 1.6 0.5 - 2.2 mmol/L [facility] Blood Gas Source Venous [facility] Blood 11/06/2023 10:1 1 AM EST 11/06/2023 10:11 AM EST Barbie Orr MD POINT OF CARE TEST O RDERABLES [facility] [place] [address] * XR Chest AP and Pelvis AP [...] patients who have questions please contactthe health childcare center director that requested your imaging first. Felix Gonzalez MD IMG DX ORDERABLES * Phosphorus (11/06/2023 10:07 AM EST) [facility] Phosphorus 2.7 2.5 - 4.5 mg/dL [facility] Blood Venous Draw / Unknown 11/06/2023 10:07 AM EST 11/06/2023 10:25 AM EST Narrative Resulting Agency Comment Spec In Lab Natalie TRIPP CHEMISTRY ORDERABLES [facility] [place] [address] * Magnesium (11/06/2023 10:07 AM EST) [facility] Magnesium 0.90 0.69 - 1.07 mmol/L [facility] Blood Venous Draw / Unknown 11/06/2023 10:07 AM EST 11/06/2023 10:25 AM EST Narrative Resulting Agency Comment Spec In Lab Natalie TRIPP CHEMISTRY ORDERABLES [facility] [place] [address] * LDL Cholesterol, Direct (11/06/2023 10:07 AM EST) LDL Cholesterol, Direct 112 mg/dL [facility] Comment: Lowest Risk: <100 mg/dL Lower Risk: 100-129 mg/dL Borderline High Risk: 130-159 mg/dL High Risk: 160-189 mg/dL Very High Risk: >ep=084 mg/dL Blood Venous Draw / Unknown 11/06/2023 10:07 AM EST 11/06/2023 10:25 AM EST Narrative Resulting Agency Comment Spec In Lab Natalie TRIPP CHEMISTRY ORDERABLES [facility] [place] [address] * HDL/Cholesterol Profile (11/06/2023 10:07 AM EST) Cholesterol, Total 192 mg/dL [facility] Comment: Lower Risk: <200 mg/dL Average Risk: 200-239 mg/dL Higher Risk: >jj=989 mg/dL HDL Cholesterol 61 mg/dL [facility] Comment: Males: ?? Higher Risk: <40 mg/dL Females: ?? Higher Risk: <50 mg/dL Cholesterol/HDL Ratio 3.1 ratio [facility] Chol/HDL Interpretation See Note [facility] Comment: Lipid management should be guided by a patient? s ASCVD risk, goals and preferences. ACC/AHA Guidelines recommend high intensity statin if clinical ASCVD or LDL greater than or equal to 190 mg/dL. http://UroSensurl.com/VZE-COD-Dirovuqct Measure LDL if Total Cholesterol minus HDL Cholesterol is greater than 220 mg/dL. Adults aged 40-75 with LDL 70-189 mg/dL should have their 10 year ASCVD risk estimated with the ACC/AHA ASCVD risk senior construction estimator http://tools.acc.org/NPJWC-Knuf-Iucbpzjag/ Statin should be discussed if risk greater [...] Spec In Lab Natalie TRIPP CHEMISTRY ORDERABLES [facility] [place] [address] * (ABNORMAL) Hemoglobin A1c (11/06/2023 10:07 AM EST) Hemoglobin A1c 7.7(H) 4.3 - 5.6 % [facility] Comment: Reference Range: 4.3 - 5.6% [...] Mellitus, Diabetes Care 2013; 36: Suppl. 1, S63-82 Estimated Average Glucose See note mg/dL [facility] Comment: Estimated Average Glucose not appropriate [...] into estimated average glucose values. ??Diabetes Care 2008:31(8):1212-7217. Additional resources are available on the ADA website (diabetes.org). Blood Venous Draw / Unknown 11/06/2023 10:07 AM EST 11/06/2023 11:03 AM EST Narrative Resulting Agency Comment Spec In Lab Natalie TRIPP CHEMISTRY ORDERABLES Performing Organization Address [facility] Co de Phone Number [facility] [place] [address] * ABORH Recheck Status (11/06/2023 10:07 AM EST) ABORH Type Recheck Completed [facility] Blood 11/06/2023 10:0 7 AM EST 11/06/2023 10:13 AM EST Narrative Resulting Agency Comment Spec In Lab Felix Gonzalez MD BLOOD BANK LAB ORDER NICK Performing Organization Address [facility] [place] [address] * Gold Tube HOLD (11/06/2023 10:07 AM EST) Pathologist [facility] Gold Hold Sample in lab. [facility] Blood Venous Draw / Unknown 11/06/2023 10:07 AM EST 11/06/2023 10:28 AM EST Felix Gonzalez MD CHEMISTRY ORDERABLES Performing Organization Address [facility] de Phone Number [facility] [place] [address] * (ABNORMAL) Differential, Automated (11/06/2023 10:07 AM EST) Neutrophil % 64.9 % [facility] Neutrophil Absolute 6.25(H) 1.70 - 6.10 x10(3)/mc L [facility] Lymph % 24.2 % [facility] Lymphocytes Abs 2.3 0.9 - 3.2 x10(3)/mc L [facility] Monocyte % 9.2 % [facility] Monocyte Abs 0.9 0.3 - 0.9 x10(3)/mc L [facility] Eos % 0.6 % [facility] Eosinophils Abs 0.1 0.0 - 0.4 x10(3)/mc L [facility] Basophil % 0.6 % [facility] Baso Absolute 0.1 0.0 - 0.1 x10(3)/mc L [facility] Immature Gran % 0.50 % [facility] Comment: Immature granulocytes(IG's)percentage and absolute count will include metamyelocytes, myelocytes, and promyelocytes. Blood smears from CBCs yielding IG's will be scanned manually for concordance. If this scan disagrees with the automated IG or if promyelocytes are noted, a manual differential will be performed. Immature Gran Absolute 0.05(H) 0.00 - 0.04 x10(3)/ L [facility] Blood 11/06/2023 10:0 7 AM EST 11/06/2023 10:25 AM EST Narrative Resulting Agency Comment Spec In Lab Felix Gonzalez MD HEMATOLOGY ORDERABLE S [facility] [place] [address] * (ABNORMAL) Hemogram (11/06/2023 10:07 AM EST) White Blood Cell 9.6(H) 4.0 - 9.5 x10(3)/mc L [facility] Red Blood Cell 5.15 4.58 - 5.54 x10(6)/mc L [facility] Hemoglobin 16.2 13.7 - 16.5 g/dL [facility] Hematocrit 47.2 40.5 - 48.5 % [facility] Mean Cell Volume 91.7 82.9 - 93.1 fL [facility] Mean Cell Hemoglobin 31.5 27.5 - 32.1 pg [facility] Mean Cell Hemoglobin Concentration 34.3 32.0 - 35.7 g/dL [facility] Platelet 154 145 - 357 x10(3)/ L [facility] RDW Standard Deviation 43.3 36.0 - 45.0 fL [facility] RDW coefficient of variation 12.9 11.4 - 13.8 % [facility] Mean Platelet Volume 10.6 7.6 - 12.9 fL [facility] NRBC% auto 0.0 % [facility] NRBC Absolute 0.000 0.000 - 0.000 x10(3)/mc L [facility] Blood 11/06/2023 10:0 7 AM EST 11/06/2023 10:25 AM EST Narrative Resulting Agency Comment Spec In Lab Felix Gonzalez MD HEMATOLOGY ORDERABLE S [facility] [place] [address] * Type and screen ([facility]CGP/MYLES) (11/06/2023 10:07 AM EST) ABORH Type O POSITIVE [facility] Patient BB History Found [facility] Expires at [id number] on: 11-09-2023 [facility] Ab Screen Interp Negative [facility] Blood 11/06/2023 10:0 7 AM EST 11/06/2023 10:07 AM EST Narrative [facility] - 11/06/2023 10:07 AM EST This Type and Screen result is only valid at the [facility] Resulting Agency Comment Spec In Lab Felix Gonzalez MD BLOOD BANK LAB ORDER NICK Performing Organization Address [facility] Co de Phone Number [facility] [place] [address] * Ethanol Level (11/06/2023 10:07 AM EST) Ethanol <100 <=99 mg/L [facility] Comment: Greater than 800 mg/L (0.08%) should be considered intoxicated. 3400 to 4500 mg/L (0.34 - 0.45%) is considered severe intoxication. Greater than 5500 mg/L (0.55%) is usually fatal. Blood 11/06/2023 10:0 7 AM EST 11/06/2023 10:25 AM EST Narrative Resulting Agency Comment Spec In Lab Felix Gonzalez MD CHEMISTRY ORDERABLES Performing Organization Address City/[facility]/ZIP Co de Phone Number [facility] [place] [address] * APTT (11/06/2023 10:07 AM EST) Partial Thromboplastin Time 28 25 - 37 sec [facility] Comment: The PTT is NOT appropriate for heparin monitoring. Use the Anti-Xa level for heparin monitoring (HEP UFH) or LMWH monitoring (HEP LMW). A PTT less than 37 seconds generally indicates adequate hemostasis. Blood 11/06/2023 10:0 7 AM EST 11/06/2023 10:25 AM EST Narrative Resulting Agency Comment Spec In Lab Felix Gonzalez MD HEMATOLOGY ORDERABLE S Performing Organization Address [facility] Co de Phone Number [facility] [place] [address] * Prothrombin Time (11/06/2023 10:07 AM EST) Prothrombin Time 10.9 9.4 - 12.5 sec [facility] International Normalization Ratio 1.0 [facility] Comment: An INR <2.0 indicates [...] MD HEMATOLOGY ORDERABLE S Performing Organization Address City/[facility]/ZIP Co de Phone Number [facility] [place] [address] * (ABNORMAL) Basic Metabolic Panel (non-fasting) (11/06/2023 10:07 AM EST) Glucose 248(H) 65 - 199 mg/dL [facility] Comment:Diabetes: >=200 mg/d L plus symptoms Blood Urea Nitrogen 24(H) 10 - 20 mg/dL [facility] Creatinine 0.87 0.80 - 1.50 mg/dL [facility] Sodium 142 135 - 145 mmol/L [facility] Potassium 4.7 3.5 - 5.0 mmol/L [facility] Comment: Please note: ??Patients with WBC >100,000 may have falsely elevated Potassium levels. ??For accurate Potassium quantification in these patients send serum separator tube (gold top) for subsequent determinations. ??Contact the Clinical Chemistry Laboratory if there are any questions. Chloride 105 98 - 107 mmol/L [facility] Carbon Dioxide 26 22 - 31 mmol/L [facility] Anion Gap 11 5 - 15 mmol/L [facility] Calcium 9.1 8.5 - 10.5 mg/dL [facility] Est Glomerular Filtration Rate 87 >=60 mL/min/1. 73 m?? [facility] Comment: This patient's estimated GFR [...] Gonzalez MD CHEMISTRY ORDERABLES Performing Organization Address City/State/[facility] Co de Phone Number [facility] [place] [address] * Rapid Drug Screen w/o Confirmation, Urine (11/06/2023 10:04 AM EST) Barbiturates Screen, Urine None Detected None Detected [facility] Comment: The barbiturate screen detects barbiturates [...] Benzodiazepines Screen, Urine None Detected None Detected [facility] Comment: The benzodiazepines screen detects [...] Cocaine Screen, Urine None Detected None Detected [facility] Comment: The cocaine metabolites screen detects benzoylecgonine (Cocaine Metabolite) at concentrations >150 ng/mL. A ? Presumptive Positive? result indicates that the screening result was positive but has not yet been confirmed by a highly-specific method. As with any screen, occasional false positive results from cross-reacting substances may occur. Not for Medico-Legal Purposes. Methadone Metabolites Screen, Urine None Detected None Detected [facility] Comment: The methadone metabolite screen detects EDDP (major methadone metabolite) at concentrations >100 ng/mL. A ? Presumptive Positive? result indicates that the screening result was positive but has not yet been confirmed by a highly-specific method. As with any screen, occasional false positive results from cross-reacting substances may occur. Not for Medico-Legal Purposes. Opiate Screen, Urine None Detected None Detected [facility] Comment: The opiates screen detects [...] Cannabinoid Screen, Urine None Detected None Detected [facility] Comment: The marijuana metabolites screen detects the THC metabolite (53-aiu-7-carboxy-delta 9-THC) at concentrations >20 ng/mL. A ? Presumptive Positive? result indicates that the screening result was positive but has not yet been confirmed by a highly-specific method. As with any screen, occasional false positive results from cross-reacting substances may occur. Not for Medico-Legal Purposes. Oxycodone Screen, Urine None Detected None Detected [facility] Comment: The oxycodone screen detects oxycodone and oxymorphone at concentrations >100 ng/mL. A ? Presumptive Positive? result indicates that the screening result was positive but has not yet been confirmed by a highly-specific method. As with any screen, occasional false positive results from cross-reacting substances may occur. Not for Medico-Legal Purposes. Buprenorphine Screen, Urine None Detected None Detected [facility] Comment: The buprenorphine screen detects buprenorphine [...] characteristics of this test were determined by [facility] in accordance with CLIA requirements. This laboratory is qualified under CLIA to perform high-complexity testing. Fentanyl Screen, Urine None Detected None Detected [facility] Comment: The fentanyl screen detects fentanyl [...] characteristics of this test were determined by [facility] in accordance with CLIA requirements. This laboratory is qualified under CLIA to perform high-complexity testing. Tricyclics Screen, Urine None Detected None Detected [facility] Comment: The tricyclics screen detects tricyclic [...] characteristics of this test were determined by [facility] in accordance with CLIA requirements. This laboratory is qualified under CLIA to perform high-complexity testing. Ethanol Screen, Urine None Detected None Detected [facility] Comment:This urine ethanol a ssay detects ethanol at concentrations >/= 100 mg/L. Amphetamines Screen, Urine None Detected None Detected [facility] Comment: The amphetamine screen detects d-amphetamine and d-methamphetamine at concentrations >300 ng/mL. A ? Presumptive Positive? result indicates that the screening result was positive but has not yet been confirmed by a highly-specific method. As with any screen, occasional false positive results from cross-reacting substances may occur. Not for Medico-Legal Purposes. Creatinine Specimen Validity Test, Urine 48 >=20 mg/dL [facility] Chromate Specimen Validity Test, Urine <2.0 <=49.9 mg/L [facility] Nitrite Specimen Validity Test, Urine <50 <=499 mg/L [facility] Oxidant Specimen Validity Test, Urine 11 <=199 mg/L [facility] pH Specimen Validity Test, Urine 6.2 3.0 - 10.9 [facility] Adulterants Screen, Urine None Detected None Detected [facility] Comment:No adulteration of t his urine sample was detected. Urine 11/06/2023 10:0 4 AM EST 11/06/2023 11:16 AM EST Narrative Resulting Agency Comment Spec In Lab Felix Gonzalez MD CHEMISTRY ORDERABLES Performing Organization Address [facility] Co de Phone Number [facility] [place] [address] * Rapid Drug Screen, Urine (KILO Request) (11/06/2023 10:04 AM EST) KILO Conf Requested No [facility] KILO Requested See Comment [facility] Comment:Refer to Rapid Drug Screen w/o Confirmation, Urine for results. Urine 11/06/2023 10:0 4 AM EST 11/06/2023 11:16 AM EST Narrative Resulting Agency Comment Spec In Lab Felix Gonzalez MD URINE ORDERABLES Performing Organization Address [facility] Co de Phone Number [facility] [place] [address] * Urinalysis Microscopic Exam (11/06/2023 10:03 AM EST) RBC, Urine 0 0 - 3 /HPF [facility] WBC, Urine 1 0 - 3 /HPF [facility] Squamous Epithelial Cells Raw Data, Urine 1 <=4 /HPF [facility] Hyaline Casts, Urine 1 0 - 2 /LPF [facility] Clean Catch Urine 11/06/2023 10:03 AM EST 11/06/2023 11:16 AM EST Narrative Resulting Agency Comment Spec In Lab Felix Gonzalez MD URINE ORDERABLES [facility] [address] [place] [address] * (ABNORMAL) Urinalysis with reflex Culture (11/06/2023 10:03 AM EST) Glucose, Urine Dipstick 100(A) Negative mg/dL [facility] Protein, Urine Dipstick Trace(A) Negative mg/dL [facility] Bilirubin, Urine Dipstick Negative Negative mg/dL [facility] Comment: Clinical correlation required for positive Urine Bilirubin results as false positive may occur with some drugs and drug related products. If a false positive is suspected a serum total bilirubin should be considered if clinically indicated. Urobilinogen, Urine Dipstick Normal Normal mg/dL [facility] pH, Urn (dipstick) 6.5 5.0 - 8.0 [facility] Blood, Urine Dipstick Negative Negative mg/dL [facility] Ketone, Urine Dipstick Negative Negative mg/dL [facility] Nitrite, Urine Dipstick Negative Negative [facility] Leukocytes, Urine Dipstick Negative Negative mcL [facility] Appearance, Urine Dipstick Clear Clear [facility] Specific [place] Urine Automated >=1.030(A) 1.005 - 1.030 [facility] Color, Urine Dipstick Yellow Yellow [facility] Reflex to Culture No [facility] Clean Catch Urine 11/06/2023 10:03 AM EST 11/06/2023 11:16 AM EST Narrative Resulting Agency Comment Spec In Lab Felix Gonzalez MD URINE ORDERABLES [facility] [place] [address] * (ABNORMAL) POCT Glucose (11/06/2023 9:59 AM EST) Glucose, POC 221(H) 65 - 199 mg/dL [facility] Comment: Supplemental ranges: <140 mg/dL before meals <180 mg/dL all other times of the day Blood 11/06/2023 9:59 AM EST 11/06/2023 9:59 AM EST Barbie Orr MD POINT OF CARE TEST O RDERABLES [facility] [place] [address] documented in this encounter Visit Diagnoses Diagnosis [...] after 3 consecutive doses of labetaloL, call Heel Edge Inker Machine. May be given with niCARdipine and enalaprilat., [...] after 3 consecutive doses of labetaloL, call Heel Edge Inker Machine. May be given with niCARdipine and enalaprilat., [...] documented in this encounter Care Teams Student Accounts Coordinator Relationship Specialty Start Date End Date Bobby Das MD [address] [place] [address] [place] [id number] PCP - General 10/02/10 documented as of this encounter
--- OUTSIDE RECORDS SUMMARY | 2024-09-30 17:01 | XMS_ITS | Encounter Summary ---
Author Organization Formerly [facility] Address [facility] [place] [address] Care Team Providers Care Board Hammer Operator Name Role Phone Bobby Das MD Primary Care Provider [phone] Reason for Visit * Consultation (Routine) - Closed Specialty Diagnoses / Procedures Referred By Contac t Referred To Contact Cardiology Diagnoses Chronic atrial fibrillation, unspecified Cardiomyopathy, unspecified Atherosclerotic heart disease of [place] coronary artery without angina pectoris STRUCTURAL CARD Permanent afib, significant GI bleed, EF 30-35%- pt wants to discuss Watchman, willing to discuss ICD. Ifrah Tellez MD [address] [place] [id number] [place] [address] [address] [place] [phone] Referral ID Status Reason Start Date Expiration Date V isits Requested Visits Authorized [id number] Closed Consult, Test & Treat PCP Updated and/or Approved 10/06/2023 04/03/2024 6 6 Encounter Details Date Type Department Care Team (Late st Contact Info) Description 10/22/2023 2:20 PM EST Office Visit Cardiology at [address] [phone] Christian Figueroa MD [facility] [place] [address] Permanent atrial fibrillation Social History Tobacco Use [...] Cardioversion: No Anti-Arrhythmics: No Sleep Apnea: No [id number] (CHF 1, Age 4, Vasc 1, [...] PLATELET 180 12/12/2022 Social History High School: [employer]: 4 years 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 hat brusher machine Pager [phone] documented in this encounter Plan of Treatment Scheduled Referrals Name Type Priority Associated Diagnoses Orde r Schedule Referral to Cardiology Outpatient Referral Routine Routine general medical examination at a health care facility Ordered: 10/10/2023 documented as of this encounter Visit Diagnoses Diagnosis Permanent atrial fibrillation Atrial fibrillation documented in this encounter Care Teams Board Hammer Operator Relationship Specialty Start Date End Date Bobby Das MD [address] [place] [address] [place] [phone] PCP - General 10/02/10 documented as of this encounter
--- OUTSIDE RECORDS SUMMARY | 2024-09-30 17:01 | XMS_ITS | Encounter Summary ---
Author Organization [facility] [place] [address] Care Team Providers Care Miller Apprentice Name Role Phone Bobby Das MD Primary Care Provider [phone] Encounter Details Date Type Department Care Team (Late st Contact Info) Description 10/24/2023 Notes Only Cardiology at [address] [phone] Loretta Rodriguez RN Social History Tobacco Use [...] on filedocumented in this encounter Care Teams Miller Apprentice Relationship Specialty Start Date End Date Bobby Das MD [address] [place] [address] [place] [phone] PCP - General 10/02/10 documented as of this encounter
--- OUTSIDE RECORDS SUMMARY | 2024-09-30 17:01 | XMS_ITS | Encounter Summary ---
Author Organization [facility] Address [facility] [place] [address] Care Team Providers Care Architectural Modeler Name Role Phone Bobby Das MD Primary Care Provider [phone] Reason for Visit * Reason Comments Medication Refill Encounter Details Date Type Department Care Team (Late st Contact Info) Description 04/11/2023 Refill [place] [address] Augustin Lou MD [facility] HEMATOLOGY/[place] [address] Social History Tobacco Use Types Packs/Day Years [...] on filedocumented in this encounter Care Teams Architectural Modeler Relationship Specialty Start Date End Date Bobby Das MD [address] [place] [address] [place] [phone] PCP - General 10/02/10 documented as of this encounter
--- OUTSIDE RECORDS SUMMARY | 2024-09-30 17:01 | XMS_ITS | Encounter Summary ---
Author Organization [facility] [address] Care Team Providers Care Poison Information Specialist Name Role Phone Bobby Das MD Primary Care Provider [phone] Encounter Details Date Type Department Care Team (Late st Contact Info) Description 10/14/2023 Notes Only Cardiology at [address] [address] Grant Jimenez, RN Social History Tobacco Use [...] GERD; Anemia and current drinker (42 beers/week). [id number] VASc: 5 (HF, Age, DM, Vascular disease) HAS-BLED: 4 (Bleeding, Age, Medications, Alcohol usage) Anticoagulation/antiplatelet: Eliquis/Plavix Plan: Schedule MD clinic documented in this encounter Plan of Treatment Not on file documented as of this encounter Visit Diagnoses Not on filedocumented in this encounter Care Teams Poison Information Specialist Relationship Specialty Start Date End Date Bobby Das MD [address] [place] [address] [place] [address] PCP - General 10/02/10 documented as of this encounter
--- OUTSIDE RECORDS SUMMARY | 2024-09-30 17:01 | XMS_ITS | Encounter Summary ---
Author Organization [facility] [place] [address] Care Team Providers Care Mechanical Maintenance Engineer Name Role Phone Bobby Das MD Primary Care Provider [phone] Encounter Details Date Type Department Care Team (Late st Contact Info) Description 10/14/2023 Orders Only Cardiology at [address] [address] Grant Jimenez, RN Social History Tobacco Use [...] filedocumented in this encounter Care Teams Mechanical Maintenance Engineer Relationship Specialty Start Date End Date Bobby Das MD [address] [place] [address] [place] [phone] PCP - General 10/02/10 documented as of this encounter
--- OUTSIDE RECORDS SUMMARY | 2024-09-30 17:02 | XMS_ITS | Encounter Summary ---
Author Organization [facility] Address [facility] [place] [address] Care Team Providers Care Electrolysis Investigator Name Role Phone Bobby Das MD Primary Care Provider [phone] Encounter Details Date Type Department Care Team (Latest Contact Info) Description 10/02/2022 8:00 AM EST Procedure visit Dermatology at [address] [address] Jace Lynn MD [facility] [address] Basal cell carcinoma (BCC) of eyebrow Social [...] MD PHD Your wound(s) was repaired by [id number] stitches called a primary repair. Instructions are [...] pounds until your sutures are removed. Some straightedge worker may need to be delayed or delegated [...] as often as is recommended by your purchasing engineer, for new skin cancers. This is once [...] it. If after hours, please call the welding machine operator resistance or [phone] and ask for the purchasing engineer on-call. If you have any non-urgent questions or concerns, please feel free to call my office or contact me through our patient portal, [facility], at [email or web address] How to contact us during business hours Dermatology at [facility] Road: Mohs scheduling or Mohs follow-up appointments: [phone] documented in this encounter Progress Notes * Jace Lynn MD - 10/02/2022 8:00 AM EST Images from the original note were not included. Summary of Procedure(s): Site # 1 : Left Lateral Eyebrow Tumor Type: Basal Cell Carcinoma,nodular Stages to clear tumor: One Stage Repair: Mercer Transposition Images: Site #2 :Right Nasal Ala [...] and follow up with his or her purchasing engineer or other skin provider. 5. Discussed avoiding [...] Surgeon and Pathologist: Jace Lynn MD PhD Nursing/Digital Production Operator(s): Gabriel Bourne LPN [facility], Monotypist (s): Lissette Egan Pre-operative diagnosis: Basal Cell [...] site was confirmed with the patient/authorized insurance sales representative/referring physician and/or a photograph form [...] Zamora Staff Surgeon: Jace Lynn MD PhD Glove Cuffer(s): same as above assistant athletic trainer: Date: 10/02/2022 Clinical Diagnosis: skin and soft tissue defect status post Mohs micrographic surgery Location/Site: Right Lateral Eyebrow Indication: repair of wound with christianity of anatomy/function Defect size to be repaired:2.0 x 1.5cm Procedure: Mercer Transposition flap repair Final flap size: 3.0 [...] Surgery and Dermatologic Oncology Department of Dermatology [address] [place] [address] Mohs micrographic Surgery Operative Report Site # 2 Patient name: Koko Zamora : 1940 Date: 10/02/2022 Staff Surgeon and Pathologist: Jace Lynn MD PhD Nursing/Digital Production Operator(s): Gabreil Bourne LPN [facility] Monotypist (s): Lissette Egan Pre-operative diagnosis: Basal Cell [...] site was confirmed with the patient/authorized insurance sales representative/referring physician and/or a photograph form [...] site: Right Lateral Eyebrow INDICATION: repair and christianity of anatomy/function PROCEDURE: Full-thickness skin graft A [...] Surgery and Dermatologic Oncology Department of Dermatology [address] [place] [address] documented in this encounter Plan of Treatment Not on file documented as of this encounter Visit Diagnoses Diagnosis Basal cell carcinoma (BCC) of eyebrow documented in this encounter Care Teams Electrolysis Investigator Relationship Specialty Start Date End Date Bobby Das MD [address] [place] [address] [place] [phone] PCP - General 10/02/10 documented as of this encounter
--- OUTSIDE RECORDS SUMMARY | 2024-09-30 17:02 | XMS_ITS | Encounter Summary ---
Author Organization [facility] Address [facility] [place] [address] Care Team Providers Care Back Panel Padder Name Role Phone Bobby Das MD Primary Care Provider [phone] Encounter Details Date Type Department Care Team (Late st Contact Info) Description 06/25/2022 11:30 AM EDT - 06/25/2022 12:30 PM EDT Surgery [place] [address] Giovani Ponce MD [facility] [place] [address] EGD, UPPER GI ENDOSCOPY (WRVU 2.09) Social [...] the day after the procedure, use an ahwr-uzn-proabps spray to numb your throat. Sucking on [...] occurs, please contact your Doctor. Please call [phone] before 8pm Mon-Fri with problems, questions or concerns. If you call after 8pm or on weekends, call the Hospital at [phone] and ask to speak to the [employer] application development team lead and the pitting machine operator will contact that person for [...] any problems. Where can you learn more? [facility] View your After Visit Summary and more online at [email or web address] If you would like to provide feedback about your hospital experience, please call the Office of Patient and Family Relations at . If you have received this After Visit Summary in error, please immediately return it in person to the department, or notify the [facility] Privacy Office by calling toll free at between the hours of 8AM and 5PM to arrange for our retrieval of the documents at no cost to you. Content Version: 12.2 ?? [id number] [employer]. Care instructions adapted under license by [facility]. If you have questions about a medical condition or this instruction, always ask your healthcare professional. [employer] disclaims any warranty or liability for your [...] occurs, please contact your Doctor. Please call [phone] before 8pm Mon-Fri with problems, questions or concerns. If you call after 8pm or on weekends, call the Hospital at [phone] and ask to speak to the [employer] application development team lead and the pitting machine operator will contact that person for [...] any problems. Where can you learn more? [facility] View your After Visit Summary and more online at [email or web address] If you would like to provide feedback about your hospital experience, please call the Office of Patient and Family Relations at . If you have received this After Visit Summary in error, please immediately return it in person to the department, or notify the [facility] Privacy Office by calling toll free at between the hours of 8AM and 5PM to arrange for our retrieval of the documents at no cost to you. Content Version: 12.2 ?? [id number] [employer]. Care instructions adapted under license by [facility]. If you have questions about a medical condition or this instruction, always ask your healthcare professional. [employer] disclaims any warranty or liability for your use of this information. documented in this encounter Medications at Time of Discharge Medication Sig Dispensed Refills Start Date End Date fluticasone propionate (FLONASE) 50 mcg/actuation [place], Suspension 1 spray by Each Nare route [...] ischemia I99.8 ??? Coronary artery disease involving [place] coronary artery of sk[place] heart without angina pectoris I25.10 ??? HFrEF [...] Comments Small Bowel Endoscopy, Past 2Nd Duod (71471) 06/25/2022 11:01 AM EDT melena +./- Colonoscopy, Flexible W Control Bleeding, Any Method (56067) 06/25/2022 11:01 AM EDT melena +./- Upper GI Endoscopy, Diagnostic (33964) 06/25/2022 11:01 AM EDT melena +./- UPPER GI ENDOSCOPY Routine 06/25/2022 10 :33 AM EDT COLONOSCOPY Routine 06/25/2022 10:33 AM EDT documented in this encounter Results * UPPER GI ENDOSCOPY (06/25/2022 10:33 AM EDT) [facility] UPPER GI ENDOSCOPY [facility] Endoscopy ___ Procedure Date: 06/25/2022 10:33 AM ? Patient Name: Koko Zamora ? Date of : 1940 ? Age: 81 ? Order #: [id number] ? Instrument Name: [id number]- [id number]- [id number] ? ___ Procedure: ? Upper GI endoscopy [...] participated during the entire ? procedure, including non-idaz portions. ? Giovani Ponce, 06/25/2022 11:30:54 AM [...] 1940 ? Age: 81 ? Order #: [id number] ? Instrument Name: EC-760P- [id number] ? ___ Procedure: ? Colonoscopy Indications: ? [...] Procedure Code(s): ? --- Professional --- ? 54721, Colonoscopy, flexible; with ? control of bleeding, [...] of sigmoid ? colon CPT copyright 2020 [employer]. All rights reserved. The codes documented in this report are preliminary and upon butt welder review may be revised to meet current [...] RN) documented in this encounter Care Teams Back Panel Padder Relationship Specialty Start Date End Date Bobby Das MD [address] [place] [address] [place] [address] PCP - General 10/02/10 documented as of this encounter
--- OUTSIDE RECORDS SUMMARY | 2024-09-30 17:02 | XMS_ITS | Encounter Summary ---
Author Organization [facility] Address [facility] [place] [address] Care Team Providers Care Griddle Cook Name Role Phone Bobby Das MD Primary Care Provider [phone] Encounter Details Date Type Department Care Team (Late st Contact Info) Description 12/08/2022 Telephone [place] [address] Isi Celaya MD [facility] DR [place]STRO[place] [address] Social History Tobacco Use Types Packs/Day Years [...] not included. DIVISION OF GASTROENTEROLOGY & HEPATOLOGY [facility] CALL Name: Koko Zamora Date: [...] more distal process in lower GI tract. [facility] is uncomfortable with proceeding with scope given [...] on filedocumented in this encounter Care Teams Griddle Cook Relationship Specialty Start Date End Date Bobby Das MD [address] [place] [address] [place] [address] PCP - General 10/02/10 documented as of this encounter
--- OUTSIDE RECORDS SUMMARY | 2024-09-30 17:02 | XMS_ITS | Encounter Summary ---
Author Organization [facility] [place] [address] Care Team Providers Care Melter Helper Name Role Phone Bobby Das MD Primary Care Provider [phone] Encounter Details Date Type Department Care Team [...] on filedocumented in this encounter Care Teams Melter Helper Relationship Specialty Start Date End Date Bobby Das MD [address] [place] [address] [place] [address] PCP - General 10/02/10 documented as of this encounter
--- OUTSIDE RECORDS SUMMARY | 2024-09-30 17:02 | XMS_ITS | Encounter Summary ---
Author Organization [facility] Address [facility] [place] [address] Care Team Providers Care Pr Specialist Name Role Phone Bobby Das MD Primary Care Provider [phone] Encounter Details Date Type Department Care Team (Late st Contact Info) Description 08/15/2022 Telephone [place] [address] Isi Celaya MD [facility] [place] [address] Social History Tobacco Use Types Packs/Day Years [...] not included. DIVISION OF GASTROENTEROLOGY & HEPATOLOGY [facility] CALL Name: Koko Zamora Date: 08/15/2022 Time: 5:51 PM Referring Location: [facility] Mr. Zamora is a 81yo [...] w/recurrent symptomatic anemia. He presented today to [facility] w/3 weeks SOB, generalized fatigue [...] on filedocumented in this encounter Care Teams Pr Specialist Relationship Specialty Start Date End Date Bobby Das MD [address] [place] [address] [place] [address] PCP - General 10/02/10 documented as of this encounter
--- OUTSIDE RECORDS SUMMARY | 2024-09-30 17:02 | XMS_ITS | Encounter Summary ---
Author Organization [facility] [place] [address] Care Team Providers Care Investigation Officer Name Role Phone Bobby Das MD Primary Care Provider [phone] Encounter Details Date Type Department Care Team (Late st Contact Info) Description 06/13/2022 7:30 AM EDT Tech [place] [address] Edson Lag[place] Limb ischemia Social History [...] Text Report Department: Vascular Surgery Lab Patient: [id number] (ETTA [facility]) CPT: 94321 Referring Physician: FITO SUMMERS ?? Phone: Indications: s/p L PHONE TECHNICIAN endart. Diabetes mellitus: no Findings: Right [...] disorder documented in this encounter Care Teams Investigation Officer Relationship Specialty Start Date End Date Bobby Das MD [address] [place] [address] [place] [address] PCP - General 10/02/10 documented as of this encounter
--- OUTSIDE RECORDS SUMMARY | 2024-09-30 17:02 | XMS_ITS | Encounter Summary ---
Author Organization [facility] [place] [address] Care Team Providers Care Railroad Dining Car Stewardess Name Role Phone Bobby Das MD Primary Care Provider [phone] Reason for Referral * Consultation (Routine) - Closed Specialty Diagnoses / Procedures Referred By Colby quezada Referred To Contact Gastroenterology Diagnoses Adenomatous polyp of colon, unspecified part of colon Colonoscopy 06/25/22, discussed w/Dr. Ponce needs to be seen in clinic to discuss polyp / removal iso plavix & DOAC Isi Celaya MD [facility] [place] [address] [facility] [place] [address] [address] Referral ID Status Reason Start Date Expiration Date V isits Requested Visits Authorized [id number] Closed Consult, Test & Treat 06/25/2022 06/25/2023 1 1 Scheduling Instructions To be seen in ~2mo Encounter Details Date Type Department Care Team (Late st Contact Info) Description 06/25/2022 Orders Only [place] [address] Isi Celaya MD [facility] [place] [address] Adenomatous polyp of colon, unspecified part of [...] colon documented in this encounter Care Teams Railroad Dining Car Stewardess Relationship Specialty Start Date End Date Bobby Das MD [address] [place] [address] [place] [address] PCP - General 10/02/10 documented as of this encounter
--- OUTSIDE RECORDS SUMMARY | 2024-09-30 17:02 | XMS_ITS | Encounter Summary ---
Author Organization [facility] Address [facility] [place] [address] Care Team Providers Care Client Server Developer Name Role Phone Bobby Das MD Primary Care Provider [phone] Encounter Details Date Type Department Care Team (Latest Contact Info) Description 10/02/2022 7:45 AM EST Clinical Support Dermatology at [address] [address] Jace Lynn MD [facility] DR [place] [address] Basal cell carcinoma (BCC) of eyebrow Social [...] eyebrow documented in this encounter Care Teams Client Server Developer Relationship Specialty Start Date End Date Bobby Das MD [address] [place] [address] [place] [phone] PCP - General 10/02/10 documented as of this encounter
--- OUTSIDE RECORDS SUMMARY | 2024-09-30 17:02 | XMS_ITS | Encounter Summary ---
Author Organization [facility] Address [facility] [place] [address] Care Team Providers Care Manager Fashion Name Role Phone Bobby Das MD Primary Care Provider [phone] Reason for Visit * Consultation (Routine) - Closed Specialty Diagnoses / Procedures Referred By Colby quezada Referred To Contact Gastroenterology Diagnoses Adenomatous polyp of colon, unspecified part of colon Colonoscopy 06/25/22, discussed w/Dr. Ponce needs to be seen in clinic to discuss polyp / removal iso plavix & DOAC Systrom, sIi Mera MD [facility] [place] [address] [facility] Gastro [address] [place] [address] Referral ID Status Reason Start Date Expiration Date V isits Requested Visits Authorized [id number] Closed Consult, Test & Treat 06/25/2022 06/25/2023 1 1 Encounter Details Date Type Department Care Team (Latest Contact Info) Description 11/18/2022 3:00 PM EST TH Visit (TeleHealth) [place] [address] Giovani Ponce MD [facility] [place] [address] Iron deficiency anemia due to [...] Ponce MD - 11/18/2022 3:00 PM EST [facility] Section of Gastroenterology and Hepatology Outpatient Consultation [facility] Telephone Note Primary care provider: Bobby [...] beam coagulation. In August he presented to [facility] again with symptomatic anemia. One of the GI fellows was contacted via the transfer center (see note for details), and it looks as though we did not the hear back from [facility]. He is here today for a general [...] IR Biopsy Spine 07/20/2019 Bobby Marshall MD [facility] INTERVENTIONL RAD ??? IR VERTEBROPLASTY LUMBAR MULTIPLE LEVELS 07/20/2019 IR Vertebroplasty Lumbar Multiple Levels 07/20/2019 Bobby Marshall MD [facility] INTERVENTIONL RAD ??? IR VERTEBROPLASTY THORACIC SINGLE LEVEL 10/25/2020 IR Vertebroplasty Thoracic Single Level 10/25/2020 Matt Chisholm MD [facility] INTERVENTIONL RAD ??? PRO COLONOSCOPY, FLEX, W/CONTROL, BLEEDING N/A 06/25/2022 COLONOSCOPY; W CONTROL OF BLEEDING, ANY METHOD performed by Giovani Ponce MD at [facility] ENDOSCOPY ??? PRO EMBLC/THRMBC FEMORAL POPLITEAL AORTO-ILIAC ARTERY Left 05/15/2022 EMBOLECTOMY OR THROMBECTOMY, FEMOROPOPLITEAL, AORTOILIAC ARTERY BY LEG INCISION (WRVU 19.48) performed by Fito Summers MD at [facility] MAIN OR ??? PRO SMALL BOWEL ENDOSCOPY, PAST 2ND DUOD N/A 06/25/2022 SMALL BOWEL ENTEROSCOPY performed by Giovani Ponce MD at [facility] ENDOSCOPY ??? PRO UPPER GI ENDOSCOPY, CTRL BLEED 05/31/2022 EGD, W CONTROL OF BLEEDING, ANY METHOD performed by Giovani Ponce MD at [facility] ENDOSCOPY ??? PRO UPPER GI ENDOSCOPY, DIAGNOSTIC N/A 05/31/2022 EGD, UPPER GI ENDOSCOPY performed by Giovani Ponce MD at [facility] ENDOSCOPY ??? PRO UPPER GI ENDOSCOPY, DIAGNOSTIC N/A 06/25/2022 EGD, UPPER GI ENDOSCOPY performed by Giovani Ponce MD at [facility] ENDOSCOPY Social History: reports that he [...] 12 ??? fluticasone propionate (FLONASE) 50 mcg/actuation [place], Suspension 1 spray by Each Nare route [...] Giovani Ponce MD CC Bobby Das MD [address] [place] [address] [place] [address] SystromIsi MD [facility] [place] [address] Gastroenterology Section [facility] documented in this encounter Plan of Treatment Scheduled Referrals Name Type Priority Associated Diagnoses Order Schedule Referral to Gastroenterology Outpatient Referral Routine Adenomatous polyp of colon, unspecified part of colon Ordered: 06/25/2022 documented as of this encounter Visit Diagnoses Diagnosis Iron deficiency anemia due to chronic blood loss Iron deficiency anemia secondary to blood loss (chronic) documented in this encounter Care Teams Manager Fashion Relationship Specialty Start Date End Date Bobby Das MD [address] [place] [address] [place] [phone] PCP - General 10/02/10 documented as of this encounter
--- OUTSIDE RECORDS SUMMARY | 2024-09-30 17:02 | XMS_ITS | Encounter Summary ---
Author Organization [facility] Address [facility] [place] [address] Care Team Providers Care Operating Room Specialist Name Role Phone Bobby Das MD Primary Care Provider [phone] Encounter Details Date Type Department Care Team (Late st Contact Info) Description 08/16/2022 Telephone [place] [address] Jewell Arroyo MD [facility] DR [place] [address] Social History Tobacco Use Types Packs/Day Years [...] inquire on patient status following consult for xskz-wbx-jjpi, can refer to Dr. Celaya's note yesterday evening. Patient received 3u pRBC but Hb only improved to 7.8. Has not been seen this morning, so not clear if he is having active symptoms of GIB. Unfortunately our schedule today does not have time for a stuk-qbj-bqlo, so I recommend the team talk to other facilitiesfor possible transfer where GI services are available. If patient remains admitted there, because we have no beds for transfer, recommend continuing IV PPI, transfusing for active bleeding or Hb<7, and touching base with team on Friday for potential xldc-ohb-dtrh Friday for push enteroscopy +/- colonoscopy. Jewell Arroyo MD Gastroenterology PGY-6 08/16/2022 11:12 AM Pager #[phone]' documented in this encounter Plan of Treatment Not on file documented as of this encounter Visit Diagnoses Not on filedocumented in this encounter Care Teams Operating Room Specialist Relationship Specialty Start Date End Date Bobby Das MD [address] [place] [address] [place] [address] PCP - General 10/02/10 documented as of this encounter
--- OUTSIDE RECORDS SUMMARY | 2024-09-30 17:02 | XMS_ITS | Encounter Summary ---
Author Organization [facility] [place] [address] Care Team Providers Care Educational Aid Name Role Phone Bobby Das MD Primary Care Provider [phone] Reason for Visit * Auth/Cert (Routine) Specialty Diagnoses / Procedures Referred By Colby quezada Referred To Contact Diagnoses GI bleed gi [place] [address] [facility] Referral ID Status Reason Start Date Expiration Date Visits Re quested Visits Authorized [id number] 1 1 Encounter Details Date Type Department Care Team (Late st Contact Info) Description 12/09/2022 10:30 AM EST - 12/09/2022 11:15 AM EST [place] [address] Giovani Ponce MD [facility] [place] [address] COLONOSCOPY, DIAGNOSTIC (WRVU 3.26) Social History Tobacco [...] Problems Diagnosis ??? 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 Hypertriglyceridemia ??? Adhesive capsulitis [...] bleed in 05/31 presenting in transfer from [facility] for hematochezia. ?? Mr. Zamora first [...] rectum, at which point he presented to [facility] for further workup. ?? Per report, [...] further management. Primary Team Inpatient Physicians at [facility] was: Attending Physician(s): Aristides Hinds MD Resident(s): Augustin Lou MD; Remigio Morel MD Inpatient Provider Contact Information: If you have questions about this document please contact the [facility] barratte operator at and ask for one of [...] Procedure Component Value - Date/Time COVID-19 PCR [[id number]] Collected: 12/12/22611 Lab Status: Final result Specimen: [...] using the Simplexa COVID-19 Direct Assay by [employer] as authorized by the FDA issued Emergency [...] Department of Pathology and Laboratory Medicine at [facility], certified under the Clinical Laboratory Improvement Amendments [...] fact sheets at the following FDA website: https://www.fda.gov/medical-devices/xiphohjrhor-vhpdrbp-8307-mayxh-20-nrgpsyeoj- sqc-ekibzpgjupkmiw-zbqknac-devices/bildl-ufoxojiifme-blyd SARS-CoV-2 Source [employer] Swab Microbiology Results (last 6 months) Procedure Component Value - Date/Time COVID-19 PCR [[id number]] Collected: 12/12/22611 Lab Status: Final result Specimen: [...] using the Simplexa COVID-19 Direct Assay by [employer] as authorized by the FDA issued Emergency [...] Department of Pathology and Laboratory Medicine at [facility], certified under the Clinical Laboratory Improvement Amendments [...] fact sheets at the following FDA website: https://www.fda.gov/medical-devices/vqorzngghgr-pmppsjl-0047-jrcaa-89-gkmajnelw- zuj-wplpxdloodscic-rfvctap-devices/cksyk-ewsfxdwetim-jbiq SARS-CoV-2 Source [employer] Swab Diagnostic Studies: Colonoscopy (12/09): Impression: ? [...] Center 05/27/2023 11:00 AM Giovani Ponce MD [facility] GASTRO [facility] 12/16/2022 11:[address] Bobby Reilly [facility] [place] Your Inpatient Doctor: MD Aristides Hughes MD Aditya Sharma, MD Your Primary Care Provider: Bobby Das MD [phone] For questions regarding this document or issues relating to this hospitalization on the Medical Service, please contact your inpatient physician through the [facility] Leg Assembler . Issues afterhours and on weekends will [...] occurs, please contact your Doctor. Please call [phone] before 8pm Mon-Fri with problems, questions or concerns. If you call after 8pm or on weekends, call the Hospital at [phone] and ask to speak to the String Cutter strategy execution consultant and the barratte operator will contact that person for you. When should you call for help? Call [phone] anytime you think you may need emergency [...] more? [facility] View your After Visit Summary and more online at [email or web address] If you would like to [...] cost to you. Content Version: 12.2 ?? 8150-4748 [employer]. Care instructions adapted under license by [facility]. If you have questions about a medical condition or this instruction, always ask your healthcare professional. [employer] disclaims any warranty or liability for your use of this information. Discharge References/Attachments None To-Do List To-Do List Future Appointments Provider Department Dept Phone 05/27/2023 11:00 AM Giovani Ponce MD Gastroenterology at [facility] Arrive at: Party Plan Sales Unit Advisor Area [phone] Future Orders Complete By Expires CBC (with Diff) [[id number] Custom] 12/19/2022 (Approximate) 06/20/2023 Process Instructions: Scheduling Instructions: Comments: Questions: Provider Contact Information: Bobby Das MD [address] [place] [address] / [facility] [address] Signed: Remigio [...] occurs, please contact your Doctor. Please call [phone] before 8pm Mon-Fri with problems, questions or concerns. If you call after 8pm or on weekends, call the Hospital at [phone] and ask to speak to the String Cutter strategy execution consultant and the barratte operator will contact that person for you. When should you call for help? Call [phone] anytime you think you may need emergency [...] more? [facility] View your After Visit Summary and more online at [email or web address] If you would like to [...] cost to you. Content Version: 12.2 ?? [id number] [employer]. Care instructions adapted under license by [facility]. If you have questions about a medical condition or this instruction, always ask your healthcare professional. [employer] disclaims any warranty or liability for your [...] Center 05/27/2023 11:00 AM Giovani Ponce MD [facility] GASTRO [facility] 12/16/2022 11:[address] Bobby Reilly [facility] [place] Your Inpatient Doctor: MD Aristides Hughes MD Aditya Sharma, MD Your Primary Care Provider: Bobby Das MD [phone] For questions regarding this document or issues relating to this hospitalization on the Medical Service, please contact your inpatient physician through the [facility] Leg Assembler . Issues afterhours and on weekends will be handled by the Hospitalist staff on-call. documented in this encounter Medications at Time of Discharge Medication Sig Dispensed Refills Start Date End Date apixaban (Eliquis) 2.5 mg Tablet Take 1 tablet by mouth 2 times daily. 60 tablet 3 12/12/2022 fluticasone propionate (FLONASE) 50 mcg/actuation Kyle, Suspension 1 spray by Each Nare route [...] Problems Diagnosis ??? 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 HFrEF (heart [...] spent >30 minutes (Day of Discharge Code 10700) involved in the final examination of the [...] [facility] INTERVENTIONL RAD ??? PRO COLONOSCOPY, DIAGNOSTIC N/A 12/09/2022 COLONOSCOPY, DIAGNOSTIC performed by Giovani Ponce MD at [facility] ENDOSCOPY ??? PRO COLONOSCOPY, FLEX, W/CONTROL, BLEEDING N/A 06/25/2022 COLONOSCOPY; W CONTROL OF BLEEDING, ANY METHOD performed by Giovani Ponce MD at [facility] ENDOSCOPY ??? PRO EMBLC/THRMBC FEMORAL POPLITEAL AORTO-ILIAC ARTERY Left 05/15/2022 EMBOLECTOMY OR THROMBECTOMY, FEMOROPOPLITEAL, AORTOILIAC ARTERY BY LEG INCISION (WRVU 19.48) performed by Fito Summers MD at [facility] MAIN OR ??? PRO SMALL BOWEL ENDOSCOPY, PAST 2ND DUOD N/A 06/25/2022 SMALL BOWEL ENTEROSCOPY performed by Giovani Ponce MD at [facility] ENDOSCOPY ??? PRO UPPER GI ENDOSCOPY, CTRL BLEED 05/31/2022 EGD, W CONTROL OF BLEEDING, ANY METHOD performed by Giovani Ponce MD at [facility] ENDOSCOPY ??? PRO UPPER GI ENDOSCOPY, DIAGNOSTIC N/A 05/31/2022 EGD, UPPER GI ENDOSCOPY performed by Giovani Ponce MD at [facility] ENDOSCOPY ??? PRO UPPER GI ENDOSCOPY, DIAGNOSTIC N/A 06/25/2022 EGD, UPPER GI ENDOSCOPY performed by Giovani Ponce MD at [facility] ENDOSCOPY Social History: Patient lives with [...] and measurable assessment of functional outcome. Pager: [phone] EVELIA COVINGTON OT 12/12/2022 Occupational Therapy Rehabilitation Department * Remigio Morel MD - 12/11/2022 7:02 AM EST [facility] Inpatient Progress Note Date: 12/11/22 Patient Information: Koko Zamora [id number] PCP: Bobby Das MD PCP Admit [...] Gas) No results found for: PHART, PO2ART, CAY7WOK, NEK4PWH Microbiology: Microbiology Results (Last 30 days) No [...] 12/11/22 7:02 AM Internal Medicine, PGY-1 Pager: [phone] Associated attestation - Aristides Hinds MD - [...] of two midnights or is on the [facility] inpatient only procedure list (status [...] Morel MD - 12/10/2022 8:01 AM EST [facility] Inpatient Progress Note Date: 12/10/22 Patient Information: Koko Zamora [id number] PCP: Bobby Das MD PCP Admit [...] Gas) No results found for: PHART, PO2ART, PGC4SEJ, DKM7NHF Microbiology: Microbiology Results (Last 30 days) No [...] 12/10/22 10:46 AM Internal Medicine, PGY-1 Pager: [phone] Associated attestation - Aristides Hinds MD - [...] of two midnights or is on the [facility] inpatient only procedure list (status [...] Report given to DION Genao. * Alan Auguts MD - 12/09/2022 9:31 AM EST Images [...] OSH w/recurrent symptomatic anemia now transferred to [facility] for further care. INTERVAL: - Completed prep [...] w/recurrent sympto matic anemia now transferred to [facility] for further care. With reported hematochezia, the [...] Morel MD - 12/09/2022 6:14 AM EST [facility] Inpatient Progress Note Date: 12/09/22 Patient Information: Koko Zamora [id number] PCP: Bobby Das MD PCP Admit [...] Gas) No results found for: PHART, PO2ART, PCY5WQS, EGL1CVE Microbiology: Microbiology Results (Last 30 days) No [...] since receiving 2 units of pRBCs at [facility]. Will continue IV PPI BID, keep [...] 12/09/22 6:14 AM Internal Medicine, PGY-1 Pager: [phone] Associated attestation - Aristides Hinds MD - [...] of two midnights or is on the [facility] inpatient only procedure list (status [...] ischemia I99.8 ??? Coronary artery disease involving king island coronary artery of king [place] heart without angina pectoris I25.10 ??? HFrEF [...] PCP: Bobby Das MD PCP phone number: [phone] Date of Admission: 12/08/2022 ( Hospital Day [...] bleed in 05/31 presenting in transfer from [facility] for hematochezia. Mr. Zamora first had [...] rectum, at which point he presented to [facility] for further workup. Per report, patient [...] month ??? fluticasone propionate (FLONASE) 50 mcg/actuation Kyle, Suspension 1 spray by Each Nare route [...] since receiving 2 units of pRBCs at [facility]. Will plan on starting IV PPI [...] 12/08/2022 [facility] Medicine Blue Team #[id number] Associated attestation - Aristidse Hinds MD - 12/09/2022 4:50 PM EST [...] Type: *No Product type* / Secondary Insurance: [facility] Prescription Coverage: Yes This plan was formulated with input from patient, Koko and team. All are in agreement with plan. Referral made to [facility] RS. Do Cuadra RN [phone] Pager [phone] * Plan of Care - Luann Barrientos [...] surrogate would be surrogate decision maker per ID surrogate decision making law. (Only good for 180 days) Spouse Ursula Any patient receiving care in [place] must abide by ID law. The hierarchy for surrogate decision making [...] Current DME: none Home Address confirmed as: [address] [place] [id number] Social & Family Supports: All names listed below confirmed with patient as current and correct Extended Emergency Contact Information Primary Emergency Contact: Ursula Zamora Address: [address] [place] [id number] [facility] Relation: Spouse Current Care Provided by: self [...] Type: *No Product type* / Secondary Insurance: [facility] ONLY if patient has Medicare A&B - Does this patient have secondary insurance?: Yes ; Prescription Coverage: Yes Preferred Pharmacy: [id number] [place], [place] - [address] [place] [address] [place] [id number] [place] Status: Patient is a : No Primary Care Provider confirmed: Bobby Das MD [phone] Patient/Caregiver Goals of Treatment: Return home Potential Needs for Transition of Care: none Agency Referrals: Not Applicable Transportation: no concerns Transportation Anticipated: family or friend will provide Concerns to be Addressed: no discharge needs identified Assessment: Patient is admitted to [facility] service for GIB Plan: The patient [...] with transition of care planning. Tiffanie Patton [facility] [phone] * Plan of Care - Matt Raya [...] Box MD - 12/09/2022 5:35 PM EST [facility] Department of Cardiology Initial Consult Note Patient: Koko Zamora Primary Care: Bobby Das MD : 1940 Referring Provider: Giulia Xavier Date of service: 12/09/2022 Reason for consult: anticoagulation management in setting of GIB HISTORY OF PRESENT ILLNESS Koko Zamora is a 82 y.o. male with history of pre-diabetes, hyperlipidemia, mitral valve prolapse s/p MV repair in [place] in 2000, alcohol use disorder, duodenal & [...] [facility] INTERVENTIONL RAD ??? PRO COLONOSCOPY, FLEX, W/CONTROL, BLEEDING N/A 06/25/2022 COLONOSCOPY; W CONTROL OF BLEEDING, ANY METHOD performed by Giovani Ponce MD at [facility] ENDOSCOPY ??? PRO EMBLC/THRMBC FEMORAL POPLITEAL AORTO-ILIAC ARTERY Left 05/15/2022 EMBOLECTOMY OR THROMBECTOMY, FEMOROPOPLITEAL, AORTOILIAC ARTERY BY LEG INCISION (WRVU 19.48) performed by Fito Summers MD at [facility] MAIN OR ??? PRO SMALL BOWEL ENDOSCOPY, PAST 2ND DUOD N/A 06/25/2022 SMALL BOWEL ENTEROSCOPY performed by Giovani Ponce MD at [facility] ENDOSCOPY ??? PRO UPPER GI ENDOSCOPY, CTRL BLEED 05/31/2022 EGD, W CONTROL OF BLEEDING, ANY METHOD performed by Giovani Ponce MD at [facility] ENDOSCOPY ??? PRO UPPER GI ENDOSCOPY, DIAGNOSTIC N/A 05/31/2022 EGD, UPPER GI ENDOSCOPY performed by Giovani Ponce MD at [facility] ENDOSCOPY ??? PRO UPPER GI ENDOSCOPY, DIAGNOSTIC N/A 06/25/2022 EGD, UPPER GI ENDOSCOPY performed by Giovani Ponce MD at [facility] ENDOSCOPY MEDICATIONS AND ALLERGIES Outpatient Medications Marked [...] mitral valve prolapse s/p MV repair in [place] in 2000, alcohol use disorder, duodenal & [...] page if further consultation required. Chino Mckeon Hand Glove Cleaner, PGY4 [phone] STAFF ADDENDUM Patient interviewed and [...] to contact patient to complete I/A. Per clinical staff rn, patient is asleep. Do Cuadra RN CM [phone] Pager [phone] * Op Note - Giovani Ponce MD - 12/09/2022 11:26 AM EST DH Operative Note Patient Name: Koko Zamora : [id number] MR#: [id number] Case Date: 12/09/2022 Surgeon: Surgeon(s) and Role: [...] OSH w/recurrent symptomatic anemia now transferred to [facility] for further care. At [facility], he noted he was passing bright red blood and strings of clots. Given this, paired with him feeling light-headed, [facility] felt he needed to be in [...] [facility] INTERVENTIONL RAD ??? PRO COLONOSCOPY, FLEX, W/CONTROL, BLEEDING N/A 06/25/2022 COLONOSCOPY; W CONTROL OF BLEEDING, ANY METHOD performed by Giovani Ponce MD at [facility] ENDOSCOPY ??? PRO EMBLC/THRMBC FEMORAL POPLITEAL AORTO-ILIAC ARTERY Left 05/15/2022 EMBOLECTOMY OR THROMBECTOMY, FEMOROPOPLITEAL, AORTOILIAC ARTERY BY LEG INCISION (WRVU 19.48) performed by Fito Summers MD at [facility] MAIN OR ??? PRO SMALL BOWEL ENDOSCOPY, PAST 2ND DUOD N/A 06/25/2022 SMALL BOWEL ENTEROSCOPY performed by Giovani Ponce MD at [facility] ENDOSCOPY ??? PRO UPPER GI ENDOSCOPY, CTRL BLEED 05/31/2022 EGD, W CONTROL OF BLEEDING, ANY METHOD performed by Giovani Ponce MD at [facility] ENDOSCOPY ??? PRO UPPER GI ENDOSCOPY, DIAGNOSTIC N/A 05/31/2022 EGD, UPPER GI ENDOSCOPY performed by Giovani Ponce MD at [facility] ENDOSCOPY ??? PRO UPPER GI ENDOSCOPY, DIAGNOSTIC N/A 06/25/2022 EGD, UPPER GI ENDOSCOPY performed by Giovani Ponce MD at [facility] ENDOSCOPY SOCIAL HX: Social History Socioeconomic [...] month ??? fluticasone propionate (FLONASE) 50 mcg/actuation Kyle, Suspension 1 spray by Each Nare route [...] IMAGING: Reports and images personally reviewed in [facility]. Images independently interpreted. No orders to display [...] OSH w/recurrent symptomatic anemia now transferred to [facility] for further care. On meeting pt and [...] NPO other than prep/meds with sips. At [place], patient should be strict NPO. - Night [...] Routine 12/09/2022 11:22 AM EST Colonoscopy, Diagnostic ([id number]) 12/09/2022 11:18 AM EST hematochezia HEMOGRAM Routine [...] Cell 5.6 4.0 - 9.5 x10(3)/mc L [facility] Red Blood Cell 3.62(L) 4.58 - 5.54 x10(6)/mc L [facility] Hemoglobin 9.7(L) 13.7 - 16.5 g/dL [facility] Hematocrit 31.0(L) 40.5 - 48.5 % [facility] Mean Cell Volume 85.6 82.9 - 93.1 fL [facility] Mean Cell Hemoglobin 26.8(L) 27.5 - 32.1 pg [facility] Mean Cell Hemoglobin Concentration 31.3(L) 32.0 - 35.7 g/dL [facility] Platelet 180 145 - 357 x10(3)/mc L [facility] RDW Standard Deviation 59.0(H) 36.0 - 45.0 fL [facility] RDW coefficient of variation 18.6(H) 11.4 - 13.8 % [facility] Mean Platelet Volume 10.7 7.6 - 12.9 fL [facility] NRBC% auto 0.0 % [facility] NRBC Absolute 0.000 0.000 - 0.000 x10(3)/mc L [facility] Blood 12/12/2022 8:19 AM EST 12/12/2022 8:58 AM EST Narrative Resulting Agency Comment Spec In Lab Aristides Hinds MD HEMATOLOGY ORDERAB LES [facility] [place] [address] * COVID-19 PCR (12/12/2022 6:12 AM EST) SARS-CoV-2 RNA (Rapid) Not Detected Not Detected [facility] Comment: This result should be interpreted [...] using the Simplexa COVID-19 Direct Assay by [employer] as authorized by the FDA issued Emergency [...] Department of Pathology and Laboratory Medicine at [facility], certified under the Clinical Laboratory Improvement Amendments [...] fact sheets at the following FDA website: https://www.fda.gov/medical-devices/ctfdfnbswnf-hkcpzmi-6141-tjzav-81-gcraqbjit- use-a ieehnaxuieepq-wcnojhq-gjouyoj/khszp-ktiqfmatvln-zoam SARS-CoV-2 Source [employer] Swab [facility] Nasopharyngeal Swab 12/12/19 6:12 AM EST 12/12/2022 6:26 AM EST Comment:Specimen Source->Juanito opharyngeal Swab Narrative Resulting Agency Comment Spec In Lab Stu Padilla MD MICROBIOLOGY - GENER AL ORDERABLES [facility] [place] [address] * (ABNORMAL) Basic Metabolic Panel (non-fasting) (12/12/2022 12:30 AM EST) Glucose 283(H) 65 - 199 mg/dL [facility] Comment:Diabetes: >=200 mg/d L plus symptoms Blood Urea Nitrogen 15 10 - 20 mg/dL [facility] Creatinine 0.92 0.80 - 1.50 mg/dL [facility] Sodium 141 135 - 145 mmol/L [facility] Potassium 3.9 3.5 - 5.0 mmol/L [facility] Comment: Please note: ??Patients with WBC >100,000 may have falsely elevated Potassium levels. ??For accurate Potassium quantification in these patients send serum separator tube (gold top) for subsequent determinations. ??Contact the Clinical Chemistry Laboratory if there are any questions. Chloride 107 98 - 107 mmol/L [facility] Carbon Dioxide 24 22 - 31 mmol/L [facility] Anion Gap 10 5 - 15 mmol/L [facility] Calcium 8.7 8.5 - 10.5 mg/dL [facility] Est Glomerular Filtration Rate 84 >=60 mL/min/1. 73 m?? [facility] Comment: This patient's estimated GFR [...] MD CHEMISTRY ORDERABL ES Performing Organization Address City/State/[facility] Co de Phone Number [facility] [place] [address] * (ABNORMAL) Differential, Automated (12/11/2022 4:45 AM EST) Neutrophil % 64.0 % [facility] Neutrophil Absolute 5.22 1.70 - 6.10 x10(3)/mc L [facility] Lymph % 21.5 % [facility] Lymphocytes Abs 1.8 0.9 - 3.2 x10(3)/mc L [facility] Monocyte % 12.1 % [facility] Monocyte Abs 1.0(H) 0.3 - 0.9 x10(3)/mc L [facility] Eos % 1.6 % [facility] Eosinophils Abs 0.1 0.0 - 0.4 x10(3)/mc L [facility] Basophil % 0.4 % [facility] Baso Absolute 0.0 0.0 - 0.1 x10(3)/mc L [facility] Immature Gran % 0.40 % [facility] Comment: Immature granulocytes(IG's)percentage and absolute count will include metamyelocytes, myelocytes, and promyelocytes. Blood smears from CBCs yielding IG's will be scanned manually for concordance. If this scan disagrees with the automated IG or if promyelocytes are noted, a manual differential will be performed. Immature Gran Absolute 0.03 0.00 - 0.04 x10(3)/mc L [facility] Blood 12/11/2022 4:45 AM EST 12/11/2022 6:48 AM EST Narrative Resulting Agency Comment Spec In Lab Augustin Lou MD HEMATOLOGY ORDERABLE S [facility] [place] [address] * (ABNORMAL) Hemogram (12/11/2022 4:45 AM EST) White Blood Cell 8.2 4.0 - 9.5 x10(3)/mc L [facility] Red Blood Cell 3.57(L) 4.58 - 5.54 x10(6)/[facility] Hemoglobin 9.4(L) 13.7 - 16.5 g/dL [facility] Hematocrit 30.6(L) 40.5 - 48.5 % [facility] Mean Cell Volume 85.7 82.9 - 93.1 fL [facility] Mean Cell Hemoglobin 26.3(L) 27.5 - 32.1 pg [facility] Mean Cell Hemoglobin Concentration 30.7(L) 32.0 - 35.7 g/dL [facility] Platelet 185 145 - 357 x10(3)/mc L [facility] RDW Standard Deviation 60.1(H) 36.0 - 45.0 fL [facility] RDW coefficient of variation 19.4(H) 11.4 - 13.8 % [facility] Mean Platelet Volume 11.3 7.6 - 12.9 fL [facility] NRBC% auto 0.0 % [facility] NRBC Absolute 0.000 0.000 - 0.000 x10(3)/mc L [facility] Blood 12/11/2022 4:45 AM EST 12/11/2022 6:48 AM EST Narrative Resulting Agency Comment Spec In Lab Augustin Lou MD HEMATOLOGY ORDERABLE S Performing Organization Address [facility] Co de Phone Number [facility] [place] [address] * Heparin (unfractionated) Level (12/11/2022 4:45 AM EST) UF Heparin 0.80 IU/mL [facility] Comment: Specimen drawn more than one [...] MD HEMATOLOGY ORDERAB LES Performing Organization Address [facility] Co de Phone Number [facility] [place] [address] * Basic Metabolic Panel (non-fasting) (12/11/2022 4:45 AM EST) Glucose Not Perf 65 - 199 [facility] Comment: Sample improperly processed prior to receipt. Diabetes: >=200 mg/dL plus symptoms Blood Urea Nitrogen 15 10 - 20 mg/dL [facility] Creatinine 1.10 0.80 - 1.50 mg/dL [facility] Sodium 143 135 - 145 mmol/L [facility] Potassium 3.7 3.5 - 5.0 mmol/L [facility] Comment: Please note: ??Patients with WBC >100,000 may have falsely elevated Potassium levels. ??For accurate Potassium quantification in these patients send serum separator tube (gold top) for subsequent determinations. ??Contact the Clinical Chemistry Laboratory if there are any questions. Chloride 106 98 - 107 mmol/L [facility] Carbon Dioxide 26 22 - 31 mmol/L [facility] Anion Gap 11 5 - 15 mmol/L [facility] Calcium 8.9 8.5 - 10.5 mg/dL [facility] Est Glomerular Filtration Rate 68 >=60 mL/min/1. 73 m?? [facility] Comment: This patient's estimated [...] Lab Aristides Hinds MD CHEMISTRY ORDERABL ES [facility] [place] [address] * Heparin (unfractionated) Level (12/10/2022 10:35 PM EST) UF Heparin 0.72 IU/mL [facility] Comment: Heparin (anti-Xa) levels [...] MD HEMATOLOGY ORDERAB LES Performing Organization Address City/[facility]/ZIP Co de Phone Number [facility] [place] [address] * (ABNORMAL) Hemogram (12/10/2022 10:35 PM EST) White Blood Cell 6.8 4.0 - 9.5 x10(3)/mc L [facility] Red Blood Cell 3.62(L) 4.58 - 5.54 x10(6)/mc L [facility] Hemoglobin 9.6(L) 13.7 - 16.5 g/dL [facility] Hematocrit 31.4(L) 40.5 - 48.5 % [facility] Mean Cell Volume 86.7 82.9 - 93.1 fL [facility] Mean Cell Hemoglobin 26.5(L) 27.5 - 32.1 pg [facility] Mean Cell Hemoglobin Concentration 30.6(L) 32.0 - 35.7 g/dL [facility] Platelet 177 145 - 357 x10(3)/mc L [facility] RDW Standard Deviation 62.9(H) 36.0 - 45.0 fL [facility] RDW coefficient of variation 19.8(H) 11.4 - 13.8 % [facility] Mean Platelet Volume 10.5 7.6 - 12.9 fL [facility] NRBC% auto 0.0 % [facility] NRBC Absolute 0.000 0.000 - 0.000 x10(3)/mc L [facility] Blood 12/10/2022 10:3 5 PM EST 12/10/2022 10:42 PM EST Narrative Resulting Agency Comment Spec In Lab Aristides Hinds MD HEMATOLOGY ORDERAB LES Performing Organization Address [facility] Co de Phone Number [facility] [place] [address] * Heparin (unfractionated) Level (12/10/2022 4:40 PM EST) UF Heparin 0.49 IU/mL [facility] Comment: Heparin (anti-Xa) levels [...] Lab Aristides Hinds MD HEMATOLOGY ORDERAB LES [facility] [place] [address] * (ABNORMAL) Basic Metabolic Panel (non-fasting) (12/10/2022 10:08 AM EST) Glucose 261(H) 65 - 199 mg/dL [facility] Comment:Diabetes: >=200 mg/d L plus symptoms Blood Urea Nitrogen 12 10 - 20 mg/dL [facility] Creatinine 1.01 0.80 - 1.50 mg/dL [facility] Sodium 142 135 - 145 mmol/L [facility] Potassium 4.0 3.5 - 5.0 mmol/L [facility] Comment: Please note: ??Patients with WBC >100,000 may have falsely elevated Potassium levels. ??For accurate Potassium quantification in these patients send serum separator tube (gold top) for subsequent determinations. ??Contact the Clinical Chemistry Laboratory if there are any questions. Chloride 109(H) 98 - 107 mmol/L [facility] Carbon Dioxide 23 22 - 31 mmol/L [facility] Anion Gap 10 5 - 15 mmol/L [facility] Calcium 8.7 8.5 - 10.5 mg/dL [facility] Est Glomerular Filtration Rate 75 >=60 mL/min/1. 73 m?? [facility] Comment: This patient's estimated GFR [...] MD CHEMISTRY ORDERABL ES Performing Organization Address City/State/[facility] Co de Phone Number [facility] [address] [place] [address] * Differential, Automated (12/10/2022 9:20 AM EST) Neutrophil % 62.4 % [facility] Neutrophil Absolute 3.90 1.70 - 6.10 x10(3)/[facility] LAB[facility] Lymph % 21.7 % [facility] Lymphocytes Abs 1.4 0.9 - 3.2 x10(3)/[facility] Monocyte % 13.4 % [facility] Monocyte Abs 0.8 0.3 - 0.9 x10(3)/[facility] Eos % 1.6 % [facility] Eosinophils Abs 0.1 0.0 - 0.4 x10(3)/[facility] Basophil % 0.6 % [facility] Baso Absolute 0.0 0.0 - 0.1 x10(3)/[facility] Immature Gran % 0.30 % [facility] Comment: Immature granulocytes(IG's)percentage and absolute count will include metamyelocytes, myelocytes, and promyelocytes. Blood smears from CBCs yielding IG's will be scanned manually for concordance. If this scan disagrees with the automated IG or if promyelocytes are noted, a manual differential will be performed. Immature Gran Absolute 0.02 0.00 - 0.04 x10(3)/mcL [facility] Blood 12/10/2022 9:20 AM EST 12/10/2022 9:27 AM EST Narrative Resulting Agency Comment Spec In Lab Augustin Lou MD HEMATOLOGY ORDERABLE S [facility] [place] [address] * (ABNORMAL) Hemogram (12/10/2022 9:20 AM EST) White Blood Cell 6.3 4.0 - 9.5 x10(3)/mc L [facility] Red Blood Cell 3.46(L) 4.58 - 5.54 x10(6)/mc L [facility] Hemoglobin 9.4(L) 13.7 - 16.5 g/dL [facility] Hematocrit 30.1(L) 40.5 - 48.5 % [facility] Mean Cell Volume 87.0 82.9 - 93.1 fL [facility] Mean Cell Hemoglobin 27.2(L) 27.5 - 32.1 pg [facility] Mean Cell Hemoglobin Concentration 31.2(L) 32.0 - 35.7 g/dL [facility] Platelet 180 145 - 357 x10(3)/mc L [facility] RDW Standard Deviation 63.2(H) 36.0 - 45.0 fL [facility] RDW coefficient of variation 19.9(H) 11.4 - 13.8 % [facility] Mean Platelet Volume 10.4 7.6 - 12.9 fL [facility] NRBC% auto 0.0 % [facility] NRBC Absolute 0.000 0.000 - 0.000 x10(3)/mc L [facility] Blood 12/10/2022 9:20 AM EST 12/10/2022 9:27 AM EST Narrative Resulting Agency Comment Spec In Lab Augustin Lou MD HEMATOLOGY ORDERABLE S [facility] [place] [address] * Differential, Automated (12/09/2022 5:42 PM EST) Neutrophil % 63.5 % [facility] Neutrophil Absolute 3.67 1.70 - 6.10 x10(3)/[facility] LAB[facility] Lymph % 19.7 % [facility] Lymphocytes Abs 1.1 0.9 - 3.2 x10(3)/[facility] Monocyte % 14.4 % [facility] Monocyte Abs 0.8 0.3 - 0.9 x10(3)/[facility] Eos % 1.6 % [facility] Eosinophils Abs 0.1 0.0 - 0.4 x10(3)/[facility] Basophil % 0.5 % [facility] Baso Absolute 0.0 0.0 - 0.1 x10(3)/[facility] Immature Gran % 0.30 % [facility] Comment: Immature granulocytes(IG's)percentage and absolute count will include metamyelocytes, myelocytes, and promyelocytes. Blood smears from CBCs yielding IG's will be scanned manually for concordance. If this scan disagrees with the automated IG or if promyelocytes are noted, a manual differential will be performed. Immature Gran Absolute 0.02 0.00 - 0.04 x10(3)/[facility] Blood 12/09/2022 5:42 PM EST 12/09/2022 5:53 PM EST Narrative Resulting Agency Comment Spec In Lab Augustin Lou MD HEMATOLOGY ORDERABLE S Performing Organization Address City/[facility]/[place] [address] * (ABNORMAL) Hemogram (12/09/2022 5:42 PM EST) White Blood Cell 5.8 4.0 - 9.5 x10(3)/mc L [facility] Red Blood Cell 3.39(L) 4.58 - 5.54 x10(6)/mc L [facility] Hemoglobin 9.0(L) 13.7 - 16.5 g/dL [facility] Hematocrit 28.8(L) 40.5 - 48.5 % [facility] Mean Cell Volume 85.0 82.9 - 93.1 fL [facility] Mean Cell Hemoglobin 26.5(L) 27.5 - 32.1 pg [facility] Mean Cell Hemoglobin Concentration 31.3(L) 32.0 - 35.7 g/dL [facility] Platelet 167 145 - 357 x10(3)/mc L [facility] RDW Standard Deviation 61.7(H) 36.0 - 45.0 fL [facility] RDW coefficient of variation 20.3(H) 11.4 - 13.8 % [facility] Mean Platelet Volume 10.2 7.6 - 12.9 fL [facility] NRBC% auto 0.0 % [facility] NRBC Absolute 0.000 0.000 - 0.000 x10(3)/[facility] LABORATORY Blood 12/09/2022 5:42 PM EST 12/09/2022 5:53 PM EST Narrative Resulting Agency Comment Spec In Lab Augustin Lou MD HEMATOLOGY ORDERABLE S [facility] [place] [address] * COLONOSCOPY (12/09/2022 11:22 AM EST) COLONOSCOPY [facility] Endoscopy Procedure Date: 12/09/2022 11:22 AM ? Patient Name: Koko Zamora ? Date of : 1940 ? Age: 82 ? Order #: [id number] ? Instrument Name: ? Procedure: ? Colonoscopy [...] 12:30 AM EST) Neutrophil % 61.7 % [facility] Neutrophil Absolute 4.49 1.70 - 6.10 x10(3)/[facility] Lymph % 22.9 % [facility] Lymphocytes Abs 1.7 0.9 - 3.2 x10(3)/[facility] Monocyte % 12.5 % [facility] Monocyte Abs 0.9 0.3 - 0.9 x10(3)/[facility] Eos % 1.8 % [facility] Eosinophils Abs 0.1 0.0 - 0.4 x10(3)/[facility] Basophil % 0.7 % [facility] Baso Absolute 0.0 0.0 - 0.1 x10(3)/[facility] Immature Gran % 0.40 % [facility] Comment: Immature granulocytes(IG's)percentage and absolute count will include metamyelocytes, myelocytes, and promyelocytes. Blood smears from CBCs yielding IG's will be scanned manually for concordance. If this scan disagrees with the automated IG or if promyelocytes are noted, a manual differential will be performed. Immature Gran Absolute 0.03 0.00 - 0.04 x10(3)/[facility] Blood 12/09/2022 12:3 0 AM EST 12/09/2022 12:50 AM EST Narrative Resulting Agency Comment Spec In Lab Augustin Lou MD HEMATOLOGY ORDERABLE S [facility] [place] [address] * (ABNORMAL) Hemogram (12/09/2022 12:30 AM EST) White Blood Cell 7.3 4.0 - 9.5 x10(3)/mc L [facility] Red Blood Cell 3.44(L) 4.58 - 5.54 x10(6)/mc L [facility] Hemoglobin 9.2(L) 13.7 - 16.5 g/dL [facility] Hematocrit 29.3(L) 40.5 - 48.5 % [facility] Mean Cell Volume 85.2 82.9 - 93.1 fL [facility] Mean Cell Hemoglobin 26.7(L) 27.5 - 32.1 pg [facility] Mean Cell Hemoglobin Concentration 31.4(L) 32.0 - 35.7 g/dL [facility] Platelet 183 145 - 357 x10(3)/mc L [facility] RDW Standard Deviation 62.1(H) 36.0 - 45.0 fL [facility] RDW coefficient of variation 20.3(H) 11.4 - 13.8 % [facility] Mean Platelet Volume 10.5 7.6 - 12.9 fL [facility] NRBC% auto 0.0 % [facility] NRBC Absolute 0.000 0.000 - 0.000 x10(3)/mc L [facility] Blood 12/09/2022 12:3 0 AM EST 12/09/2022 12:50 AM EST Narrative Resulting Agency Comment Spec In Lab Augustin Lou MD HEMATOLOGY ORDERABLE S Performing Organization Address City/[facility]/ZIP Co de Phone Number [facility] [place] [address] * Phosphorus (12/09/2022 12:30 AM EST) Phosphorus 2.8 2.5 - 4.5 mg/dL [facility] Blood 12/09/2022 12:3 0 AM EST 12/09/2022 12:50 AM EST Narrative Resulting Agency Comment Spec In Lab Stu Padilla MD CHEMISTRY ORDERABLES Performing Organization Address [facility] Co de Phone Number [facility] [place] [address] * Magnesium (12/09/2022 12:30 AM EST) Magnesium 0.80 0.69 - 1.07 mmol/L [facility] Blood 12/09/2022 12:3 0 AM EST 12/09/2022 12:50 AM EST Narrative Resulting Agency Comment Spec In Lab Stu Padilla MD CHEMISTRY ORDERABLES Performing Organization Address [facility] Phone Number [facility] [place] [address] * (ABNORMAL) Basic Metabolic Panel (non-fasting) (12/09/2022 12:30 AM EST) Glucose 151 65 - 199 mg/dL [facility] Comment:Diabetes: >=200 mg/d L plus symptoms Blood Urea Nitrogen 14 10 - 20 mg/dL [facility] Creatinine 0.88 0.80 - 1.50 mg/dL [facility] Sodium 142 135 - 145 mmol/L [facility] Potassium 3.7 3.5 - 5.0 mmol/L [facility] Comment: Please note: ??Patients with WBC >100,000 may have falsely elevated Potassium levels. ??For accurate Potassium quantification in these patients send serum separator tube (gold top) for subsequent determinations. ??Contact the Clinical Chemistry Laboratory if there are any questions. Chloride 109(H) 98 - 107 mmol/L [facility] Carbon Dioxide 22 22 - 31 mmol/L [facility] Anion Gap 11 5 - 15 mmol/L [facility] Calcium 8.5 8.5 - 10.5 mg/dL [facility] Est Glomerular Filtration Rate 87 >=60 mL/min/1. 73 m?? [facility] Comment: This patient's estimated [...] Padilla MD CHEMISTRY ORDERABLES Performing Organization Address [facility] Co de Phone Number [facility] [place] [address] * Type and Screen Validity (12/08/2022 5:51 PM EST) [facility] T&S only valid at [facility] Comment:This Type and Screen result is only valid at the [facility] Blood 12/08/2022 5:51 PM EST 12/08/2022 5:55 PM EST Narrative Resulting Agency Comment Spec In Lab Augustin Lou MD BLOOD BANK LAB ORDER NICK Performing Organization Address [facility] Co de Phone Number [facility] [place] [address] * ABORH Recheck Status (12/08/2022 5:51 PM EST) [facility] ABORH Type Recheck Completed [facility] Blood 12/08/2022 5:51 PM EST 12/08/2022 5:55 PM EST Narrative Resulting Agency Comment Spec In Lab Augustin Lou MD BLOOD BANK LAB ORDER NICK Performing Organization Address [facility] Co de Phone Number [facility] [place] [address] * Differential, Automated (12/08/2022 5:51 PM EST) Pathologist [facility] Neutrophil % 62.4 % [facility] Neutrophil Absolute 4.12 1.70 - 6.10 x10(3)/[facility] LABORAT[facility] Lymph % 22.8 % [facility] Lymphocytes Abs 1.5 0.9 - 3.2 x10(3)/[facility] Monocyte % 11.6 % [facility] Monocyte Abs 0.8 0.3 - 0.9 x10(3)/[facility] Eos % 2.0 % [facility] Eosinophils Abs 0.1 0.0 - 0.4 x10(3)/[facility] Basophil % 0.6 % [facility] Baso Absolute 0.0 0.0 - 0.1 x10(3)/[facility] LABORAT[facility] Immature Gran % 0.60 % [facility] Comment: Immature granulocytes(IG's)percentage and absolute count will include metamyelocytes, myelocytes, and promyelocytes. Blood smears from CBCs yielding IG's will be scanned manually for concordance. If this scan disagrees with the automated IG or if promyelocytes are noted, a manual differential will be performed. Immature Gran Absolute 0.04 0.00 - 0.04 x10(3)/[facility] LABORATORY Blood 12/08/2022 5:51 PM EST 12/08/2022 5:57 PM EST Narrative Resulting Agency Comment Spec In Lab Augustin Lou MD HEMATOLOGY ORDERABLE S [facility] [place] [address] * (ABNORMAL) Hemogram (12/08/2022 5:51 PM EST) White Blood Cell 6.6 4.0 - 9.5 x10(3)/mc L [facility] Red Blood Cell 3.47(L) 4.58 - 5.54 x10(6)/ L [facility] Hemoglobin 9.4(L) 13.7 - 16.5 g/dL [facility] Hematocrit 29.9(L) 40.5 - 48.5 % [facility] Mean Cell Volume 86.2 82.9 - 93.1 fL [facility] Mean Cell Hemoglobin 27.1(L) 27.5 - 32.1 pg [facility] Mean Cell Hemoglobin Concentration 31.4(L) 32.0 - 35.7 g/dL [facility] Platelet 184 145 - 357 x10(3)/mc L [facility] RDW Standard Deviation 62.3(H) 36.0 - 45.0 fL [facility] RDW coefficient of variation 20.1(H) 11.4 - 13.8 % [facility] Mean Platelet Volume 10.9 7.6 - 12.9 fL [facility] NRBC% auto 0.0 % [facility] NRBC Absolute 0.000 0.000 - 0.000 x10(3)/ L [facility] Blood 12/08/2022 5:51 PM EST 12/08/2022 5:57 PM EST Narrative Resulting Agency Comment Spec In Lab Augustin Lou MD HEMATOLOGY ORDERABLE S Performing Organization Address City/[facility]/ZIP Co de Phone Number [facility] [place] [address] * Antibody screen (12/08/2022 5:51 PM EST) Pathologist [facility] Ab Screen Interp Negative [facility] Expires at [id number] on: 12/11/2022 [facility] Blood 12/08/2022 5:51 PM EST 12/08/2022 5:55 PM EST Narrative Resulting Agency Comment Spec In Lab Augustin Lou MD BLOOD BANK LAB ORDER NICK [facility] [place] [address] * ABO/Rh Typing (12/08/2022 5:51 PM EST) ABORH Type O Pos [facility] Blood 12/08/2022 5:51 PM EST 12/08/2022 5:55 PM EST Narrative Resulting Agency Comment Spec In Lab Augustin Lou MD BLOOD BANK LAB ORDER NICK Performing Organization Address City/[facility] Co de Phone Number [facility] [place] [address] * APTT (12/08/2022 5:51 PM EST) Partial Thromboplastin Time 28 25 - 37 sec [facility] Comment: The PTT is NOT appropriate for heparin monitoring. Use the Anti-Xa level for heparin monitoring (HEP UFH) or LMWH monitoring (HEP LMW). A PTT less than 37 seconds generally indicates adequate hemostasis. Blood 12/08/2022 5:51 PM EST 12/08/2022 5:57 PM EST Narrative Resulting Agency Comment Spec In Lab Stu Padilla MD HEMATOLOGY ORDERABLE S Performing Organization Address [facility] de Phone Number [facility] [place] [address] * (ABNORMAL) Prothrombin Time (12/08/2022 5:51 PM EST) Prothrombin Time 12.6(H) 9.4 - 12.5 sec [facility] International Normalization Ratio 1.1 [facility] Comment: An INR <2.0 indicates [...] MD HEMATOLOGY ORDERABLE S Performing Organization Address [facility] Co de Phone Number [facility] [place] [address] * Hepatic Function Panel (12/08/2022 5:51 PM EST) Protein, Total 6.1 6.1 - 8.0 g/dL [facility] Albumin 3.8 3.2 - 5.2 g/dL [facility] Aspartate Aminotransferase 14 0 - 39 unit/L [facility] Alanine Aminotransferase 20 0 - 55 unit/L [facility] Alkaline Phosphatase 86 40 - 130 unit/L [facility] Bilirubin, Total 1.2 0.2 - 1.3 mg/dL [facility] Bilirubin, Direct 0.2 0.0 - 0.3 mg/dL [facility] Blood 12/08/2022 5:51 PM EST 12/08/2022 5:57 PM EST Narrative Resulting Agency Comment Spec In Lab Stu Padilla MD CHEMISTRY ORDERABLES [facility] [place] [address] * (ABNORMAL) Basic Metabolic Panel (non-fasting) (12/08/2022 5:51 PM EST) Glucose 201(H) 65 - 199 mg/dL [facility] Comment:Diabetes: >=200 mg/d L plus symptoms Blood Urea Nitrogen 16 10 - 20 mg/dL [facility] Creatinine 0.87 0.80 - 1.50 mg/dL [facility] Sodium 138 135 - 145 mmol/L [facility] Potassium 4.0 3.5 - 5.0 mmol/L [facility] Comment: Please note: ??Patients with WBC >100,000 may have falsely elevated Potassium levels. ??For accurate Potassium quantification in these patients send serum separator tube (gold top) for subsequent determinations. ??Contact the Clinical Chemistry Laboratory if there are any questions. Chloride 107 98 - 107 mmol/L [facility] Carbon Dioxide 22 22 - 31 mmol/L [facility] Anion Gap 9 5 - 15 mmol/L [facility] Calcium 8.7 8.5 - 10.5 mg/dL [facility] Est Glomerular Filtration Rate 87 >=60 mL/min/1. 73 m?? [facility] Comment: This patient's estimated GFR [...] In Lab Stu Padilla MD CHEMISTRY ORDERABLES [facility] [place] [address] documented in this encounter Visit Diagnoses Not [...] Routine documented in this encounter Care Teams Educational Aid Relationship Specialty Start Date End Date Bobby Das MD [address] [place] [address] [place] [phone] PCP - General 10/02/10 documented as of this encounter
--- OUTSIDE RECORDS SUMMARY | 2024-09-30 17:02 | XMS_ITS | Encounter Summary ---
Author Organization [facility] [place] [address] Care Team Providers Care Final Inspector Movement Assembly Name Role Phone Bobby Das MD Primary Care Provider [phone] Encounter Details Date Type Department Care Team (Late st Contact Info) Description 09/23/2022 Telephone Dermatology at [facility] [address] [place] [phone] Savanah Hubbard CMA Social History Tobacco Use [...] filedocumented in this encounter Care Teams Final Inspector Movement Assembly Relationship Specialty Start Date End Date Bobby Das MD [address] [place] [address] [place] [phone] PCP - General 10/02/10 documented as of this encounter
--- OUTSIDE RECORDS SUMMARY | 2024-09-30 17:02 | XMS_ITS | Encounter Summary ---
Author Organization [facility] [address] Care Team Providers Care Cosmetic Surgeon Name Role Phone Bobby Das MD Primary Care Provider [phone] Reason for Referral * Diagnostic Test (Routine) - Closed Specialty Diagnoses / Procedures Referred By Colby quezada Referred To Contact Cardiology Diagnoses HFrEF (heart failure with reduced ejection fraction) Procedures Echocardiogram Transthoracic Bel Blanco MD [facility] [place] [address] [facility] [place] [address] Referral ID Status Reason Start Date Expiration Date V isits Requested Visits Authorized [id number] Closed Specialty Service Requested 06/13/2022 06/13/2023 1 1 Reason for Visit * Consultation (Routine) - Closed Specialty Diagnoses / Procedures Referred By Colby quezada Referred To Contact Cardiology Diagnoses HFrEF (heart failure with reduced ejection fraction) Paroxysmal atrial fibrillation Post-hospital follow-up, s/p PCI with stenting, heart failure Nasrin Parra PA [facility] [place] [address] [facility] [address] [place], [place] [phone] Referral ID Status Reason Start Date Expiration Date V isits Requested Visits Authorized [id number] Closed Consult, Test & Treat 05/21/2022 05/21/2023 1 1 Encounter Details Date Type Department Care Team (Late st Contact Info) Description 06/13/2022 10:00 AM EDT Office Visit Cardiology at [address] [phone] Bel Blanco MD [facility] [place], [place] [phone] Coronary artery disease involving [place] coronary artery of [place] heart without angina pectoris; HFrEF (heart failure [...] [facility] [place] [address] CARDIOLOGY OUTPATIENT PROGRESS NOTE PRIMARY CARE PROVIDER: Bobby Das MD REFERRING PROVIDER: Nasrin Parra PROBLEM LIST: Patient Active Problem List Diagnosis ??? Coronary artery disease involving [place] coronary artery of [place] heart without angina pectoris 05/20/22 Cath * [...] valve prolapse) s/p repair Surgery done at [facility] in 2000 ??? Hypertriglyceridemia ??? [...] 3 ??? fluticasone propionate (FLONASE) 50 mcg/actuation [place], Suspension 1 spray by Each Nare route [...] healing well. Markedly diminished left radial pulse. 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 Psych: Appropriate affect. Labs: Lab [...] therapy possibly including AV node ablation and ACID TENDER-D. Coronary artery disease involving [place] coronary artery of [place] heart without angina pectoris His coronary disease [...] for consideration of AV node ablation and ACID TENDER-D Patient Instructions ??? Your new medication is [...] for consideration of AV node ablation and ACID TENDER-D * Assessment & Plan Note - Bel Blanco MD - 06/13/2022 10:22 AM EDT Associated Problem(s): Coronary artery disease involving [place] coronary artery of [place] heart without angina pectoris His coronary disease [...] therapy possibly including AV node ablation and ACID TENDER-D. documented in this encounter Plan of Treatment [...] 1940 ? Height: 173 cm ? Account: [id number] Age: 81 yrs ? Weight: 76 kg Gender: Male ?BSA: 1.9 m2 Ordering Physician: BEL BLANCO Referring Physician: BEL BLANCO Performed By: Salud Estrada Reason For Study: HFrEF Exam Location: [facility]. Interpretation Summary Technically limited imaging. Left [...] performed 05/16/22, findings are overall similar. Procedure Complete-[id number]. Satisfactory quality. Irregular rhythm. Left Ventricle Left [...] Date: :03 PMBP: 111/59 mmHg Patient Location: [id number] : 1940 Height: 173 cm Account: [id number] Age: 81 yrs Weight: 76 kg Gender: Male BSA: 1.9 m2 Ordering Physician: BEL BLNACO Referring Physician: BEL BLANCO Performed By: Salud Estrada Reason For Study: HFrEF Exam Location: [facility]. Interpretation Summary Technically limited imaging. Left [...] TTE performed 05/16/22,findings are overall similar. Procedure Complete-[id number]. Satisfactory quality. Irregular rhythm. Left Ventricle Left [...] Visit Diagnoses Diagnosis Coronary artery disease involving [place] coronary artery of [place] heart without angina pectoris HFrEF (heart failure with reduced ejection fraction) Permanent atrial fibrillation Atrial fibrillation HFrEF (heart failure with reduced ejection fraction) documented in this encounter Care Teams Cosmetic Surgeon Relationship Specialty Start Date End Date Bobby Das MD [address] [place] [address] [place] [address] PCP - General 10/02/10 documented as of this encounter
--- OUTSIDE RECORDS SUMMARY | 2024-09-30 17:02 | XMS_ITS | Encounter Summary ---
[place] [address] Care Team Providers Care Budget And Policy Analyst Name Role Phone Bobby Das MD Primary Care Provider [phone] Reason for Visit * Auth/Cert (Routine) Specialty Diagnoses / Procedures Referred By Colby quezada Referred To Contact Diagnoses GI bleed gi [place] [address] [facility] Referral ID Status Reason Start Date Expiration Date Visits Re quested Visits Authorized [id number] 1 1 Encounter Details Date Type Department Care Team (Latest Contact Info) Description 12/08/2022 4:21 PM EST - 12/12/2022 4:00 PM [facility] Hospital Encounter [facility]mediate [place] [address] [place] [address] [place] [address] Gastrointestinal hemorrhage, unspecified gastrointestinal hemorrhage type; 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 Hypertriglyceridemia ??? Adhesive capsulitis [...] bleed in 05/31 presenting in transfer from [facility] for hematochezia. ?? Mr. Zamora first [...] rectum, at which point he presented to [facility] for further workup. ?? Per report, [...] further management. Primary Team Inpatient Physicians at [facility] was: Attending Physician(s): Aristides Hinds MD Resident(s): Augustin Lou MD; Remigio Morel MD Inpatient Provider Contact Information: If you have questions about this document please contact the [facility] featheredge machine operator at and ask for one of [...] Procedure Component Value - Date/Time COVID-19 PCR [[id number]] Collected: 12/12/22611 Lab Status: Final result Specimen: [...] using the Simplexa COVID-19 Direct Assay by [employer] as authorized by the FDA issued Emergency [...] Department of Pathology and Laboratory Medicine at [facility], certified under the Clinical Laboratory Improvement Amendments [...] fact sheets at the following FDA website: https://www.fda.gov/medical-devices/onveesxbxmz-ashibgx-1418-wfstd-77-pbobjvwad- vka-xizhnkltycpssp-xbhwrxc-devices/stnub-nmzskovnpdd-djgn SARS-CoV-2 Source FRONT END SPECIALIST Swab Microbiology Results (last 6 months) Procedure Component Value - Date/Time COVID-19 PCR [[id number]] Collected: 12/12/22611 Lab Status: Final result Specimen: [...] diagnosis of COVID-19 is performed using the [place] COVID-19 Direct Assay by [employer] as authorized by the FDA issued Emergency [...] Department of Pathology and Laboratory Medicine at [facility], certified under the Clinical Laboratory Improvement Amendments [...] fact sheets at the following FDA website: https://www.fda.gov/medical-devices/usmowrwnsbr-pbyamkr-4376-xgotk-23-mspjakluq- tja-vpckutoxyiymzx-ckdanoj-devices/emlfw-axnsymgocwq-mfen SARS-CoV-2 Source FRONT END SPECIALIST Swab Diagnostic Studies: Colonoscopy (12/09): Impression: ? [...] Center 05/27/2023 11:00 AM Giovani Ponce MD [facility] GASTRO [facility] 12/16/2022 11:[address] Reilly [facility] [place] Your Inpatient Doctor: MD Aristides Hughes MD Aditya Sharma, MD Your Primary Care Provider: Bobby Das MD [phone] For questions regarding this document or issues relating to this hospitalization on the Medical Service, please contact your inpatient physician through the [facility] Bending Press Operator . Issues afterhours and on weekends will [...] occurs, please contact your Doctor. Please call [phone] before 8pm Mon-Fri with problems, questions or concerns. If you call after 8pm or on weekends, call the Hospital at [phone] and ask to speak to the Sizing Machine Tender service station equipment mechanic and the featheredge machine operator will contact that person for you. When should you call for help? Call [phone] anytime you think you may need emergency [...] Where can you learn more? [facility] View your After Visit Summary and more online at [email or web address] If you would like to provide feedback about your hospital experience, please call the Office of Patient and Family Relations at . If you have received this After Visit Summary in error, please immediately return it in person to the department, or notify the [facility] Privacy Office by calling toll free at between the hours of 8AM and 5PM to arrange for our retrieval of the documents at no cost to you. Content Version: 12.2 ?? [phone] [employer]. Care instructions adapted under license by [facility]. If you have questions about a medical condition or this instruction, always ask your healthcare professional. [employer] disclaims any warranty or liability for your use of this information. Discharge References/Attachments None To-Do List To-Do List Future Appointments Provider Department Dept Phone 05/27/2023 11:00 AM Giovani Ponce MD Gastroenterology at [facility] Arrive at: [facility] Area [phone] Future Orders Complete By Expires CBC (with Diff) [[id number] Custom] 12/19/2022 (Approximate) 06/20/2023 Process Instructions: Scheduling Instructions: Comments: Questions: Provider Contact Information: Bobby Das MD [address] [place] [address] / [facility] [id number] Signed: Remigio Morel MD [...] occurs, please contact your Doctor. Please call [phone] before 8pm Mon-Fri with problems, questions or concerns. If you call after 8pm or on weekends, call the Hospital at [phone] and ask to speak to the Sizing Machine Tender service station equipment mechanic and the featheredge machine operator will contact that person for you. When should you call for help? Call [phone] anytime you think you may need emergency [...] Where can you learn more? [facility] View your After Visit Summary and more online at [email or web address] If you would like to provide feedback about your hospital experience, please call the Office of Patient and Family Relations at . If you have received this After Visit Summary in error, please immediately return it in person to the department, or notify the [facility] Privacy Office by calling toll free at between the hours of 8AM and 5PM to arrange for our retrieval of the documents at no cost to you. Content Version: 12.2 ?? [phone] [employer]. Care instructions adapted under license by [facility]. If you have questions about a medical condition or this instruction, always ask your healthcare professional. [employer] disclaims any warranty or liability for [...] Center 05/27/2023 11:00 AM Giovani Ponce MD [facility] GASTRO [facility] 12/16/2022 11:[address]illy [facility] [place] Your Inpatient Doctor: MD Aristides Hughes MD Aditya Sharma, MD Your Primary Care Provider: Bobby Das MD [phone] For questions regarding this document or issues relating to this hospitalization on the Medical Service, please contact your inpatient physician through the [facility] Bending Press Operator . Issues afterhours and on weekends will be handled by the Hospitalist staff on-call. documented in this encounter Medications at Time of Discharge Medication Sig Dispensed Refills Start Date End Date apixaban (Eliquis) 2.5 mg Tablet Take 1 tablet by mouth 2 times daily. 60 tablet 3 12/12/2022 fluticasone propionate (FLONASE) 50 mcg/actuation [place], Suspension 1 spray by Each Nare route [...] Problems Diagnosis ??? 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 HFrEF (heart [...] spent >30 minutes (Day of Discharge Code 13414) involved in the final examination of the [...] [facility] INTERVENTIONL RAD ??? PRO COLONOSCOPY, DIAGNOSTIC N/A 12/09/2022 COLONOSCOPY, DIAGNOSTIC performed by Giovani Ponce MD at [facility] ENDOSCOPY ??? PRO COLONOSCOPY, FLEX, W/CONTROL, BLEEDING N/A 06/25/2022 COLONOSCOPY; W CONTROL OF BLEEDING, ANY METHOD performed by Giovani Ponce MD at [facility] ENDOSCOPY ??? PRO EMBLC/THRMBC FEMORAL POPLITEAL AORTO-ILIAC ARTERY Left 05/15/2022 EMBOLECTOMY OR THROMBECTOMY, FEMOROPOPLITEAL, AORTOILIAC ARTERY BY LEG INCISION (WRVU 19.48) performed by Fito Summers MD at [facility] MAIN OR ??? PRO SMALL BOWEL ENDOSCOPY, PAST 2ND DUOD N/A 06/25/2022 SMALL BOWEL ENTEROSCOPY performed by [facility] MD at [facility] [...] MD at [facility] ENDOSCOPY Social History: Patient lives [...] and measurable assessment of functional outcome. Pager: [phone] EVELIA COVINGTON OT 12/12/2022 Occupational Therapy Rehabilitation Department * Remigio Morel MD - 12/11/2022 7:02 AM EST [facility] Inpatient Progress Note Date: 12/11/22 Patient Information: Koko Zamora [id number] PCP: Bobby Das MD PCP Admit [...] Gas) No results found for: PHART, PO2ART, CSQ1KKG, FNJ5QMN Microbiology: Microbiology Results (Last 30 days) No [...] 12/11/22 7:02 AM Internal Medicine, PGY-1 Pager: [phone] Associated attestation - Aristides Hinds MD - [...] two midnights or is on the [facility] inpatient only procedure list (status C) [...] Morel MD - 12/10/2022 8:01 AM EST [facility] Inpatient Progress Note Date: 12/10/22 Patient Information: Koko Zamora [id number] PCP: Bobby Das MD PCP Admit [...] Gas) No results found for: PHART, PO2ART, UCS7JBE, OGC3PFO Microbiology: Microbiology Results (Last 30 days) No [...] 12/10/22 10:46 AM Internal Medicine, PGY-1 Pager: [phone] Associated attestation - Aristides Hnids MD - 12/11/2022 1:12 PM EST Attending [...] two midnights or is on the [facility] inpatient only procedure list (status C) [...] OSH w/recurrent symptomatic anemia now transferred to [facility] for further care. [...] w/recurrent sympto matic anemia now transferred to [facility] for further care. [...] Morel MD - 12/09/2022 6:14 AM EST [facility] Inpatient Progress Note Date: 12/09/22 Patient Information: Koko Zamora [id number] PCP: Bobby Das MD PCP Admit [...] Gas) No results found for: PHART, PO2ART, GDP5AFG, WGJ0RGH Microbiology: Microbiology Results (Last 30 days) No [...] since receiving 2 units of pRBCs at [facility]. Will continue IV PPI BID, keep [...] 12/09/22 6:14 AM Internal Medicine, PGY-1 Pager: [phone] Associated attestation - Aristides Hinds MD - [...] two midnights or is on the [facility] inpatient only procedure list (status C) [...] PCP: Bobby Das MD PCP phone number: [phone] Date of Admission: 12/08/2022 ( Hospital Day [...] bleed in 05/31 presenting in transfer from [facility] for hematochezia. Mr. Zamora first had [...] rectum, at which point he presented to [facility] for further workup. Per report, patient [...] month ??? fluticasone propionate (FLONASE) 50 mcg/actuation [place], Suspension 1 spray by Each Nare route [...] since receiving 2 units of pRBCs at [facility]. Will plan on starting IV PPI [...] Status: Full Augustin Lou MD, PGY-2 12/08/2022 [facility] Medicine Blue Team #[id number] Associated attestation - Aristides Hinds MD - [...] Type: *No Product type* / Secondary Insurance: [facility] Prescription Coverage: Yes This plan was formulated with input from patient, Koko and team. All are in agreement with plan. Referral made to [facility] RS. Do Cuadra RN [phone] Pager [phone] * Plan of Care - Luann Barrientos [...] surrogate would be surrogate decision maker per [place] surrogate decision making law. (Only good for 180 days) Spouse Ursula Any patient receiving care in [place] must abide by [place] law. The hierarchy [...] The agent with financial power of commercial real estate attorney or a conservator appointed in [...] Current DME: none Home Address confirmed as: [address] [place] [id number] Social & Family Supports: All names listed below confirmed with patient as current and correct Extended Emergency Contact Information Primary Emergency Contact: Ursula Zamora Address: [address] [place] [id number] [facility] Relation: Spouse Current Care Provided [...] *No Product type* / Secondary Insurance: MICHELLE ZMP ONLY if patient has Medicare A&B - Does this patient have secondary insurance?: Yes ; Prescription Coverage: Yes Preferred Pharmacy: [id number] [address] [place] Status: Patient is a : No Primary Care Provider confirmed: Bobby Das MD [phone] Patient/Caregiver Goals of Treatment: Return home Potential Needs for Transition of Care: none Agency Referrals: Not Applicable Transportation: no concerns Transportation Anticipated: family or friend will provide Concerns to be Addressed: no discharge needs identified Assessment: Patient is admitted to [facility] service for GIB Plan: The [...] with transition of care planning. [facility] [phone] * Plan of Care - Matt Raya [...] Box MD - 12/09/2022 5:35 PM EST [facility] Department of Cardiology Initial Consult Note Patient: Koko Zamora Primary Care: Bobby Das MD : 1940 Referring Provider: Giulia Xavier Date of service: 12/09/2022 Reason for consult: anticoagulation management in setting of GIB HISTORY OF PRESENT ILLNESS Koko Zamora is a 82 y.o. male with history of pre-diabetes, hyperlipidemia, mitral valve prolapse s/p MV repair in [place] in 2000, alcohol use disorder, duodenal & [...] [facility] INTERVENTIONL RAD ??? PRO COLONOSCOPY, FLEX, W/CONTROL, BLEEDING N/A 06/25/2022 COLONOSCOPY; W CONTROL OF BLEEDING, ANY METHOD performed by Giovani Ponce MD at [facility] ENDOSCOPY ??? PRO EMBLC/THRMBC FEMORAL POPLITEAL AORTO-ILIAC ARTERY Left 05/15/2022 EMBOLECTOMY OR THROMBECTOMY, FEMOROPOPLITEAL, AORTOILIAC ARTERY BY LEG INCISION (WRVU 19.48) performed by Fito Summers MD at [facility] MAIN OR ??? PRO SMALL BOWEL ENDOSCOPY, PAST 2ND DUOD N/A 06/25/2022 SMALL BOWEL ENTEROSCOPY performed by [facility] MD at [facility] Ponce MD at [facility] ENDOSCOPY MEDICATIONS AND ALLERGIES Outpatient [...] mitral valve prolapse s/p MV repair in [place] in 2000, alcohol use disorder, duodenal & [...] page if further consultation required. [employer] Associate, PGY4 [phone] STAFF ADDENDUM Patient interviewed and [...] to contact patient to complete I/A. Per direct care staffer, patient is asleep. Do Cuadra RN CM [phone] Pager [phone] * Op Note - Giovani Ponce MD - 12/09/2022 11:26 AM EST [facility] Operative Note Patient Name: Koko Zamora : [id number] MR#: [id number] Case Date: 12/09/2022 Surgeon: Surgeon(s) and Role: [...] OSH w/recurrent symptomatic anemia now transferred to [facility] for further care. At [facility], he noted he was passing bright red blood and strings of clots. Given this, paired with him feeling light-headed, [facility] felt he needed to be in [...] [facility] INTERVENTIONL RAD ??? PRO COLONOSCOPY, FLEX, W/CONTROL, BLEEDING N/A 06/25/2022 COLONOSCOPY; W CONTROL OF BLEEDING, ANY METHOD performed by Giovani Ponce MD at [facility] ENDOSCOPY ??? PRO EMBLC/THRMBC FEMORAL POPLITEAL AORTO-ILIAC ARTERY Left 05/15/2022 EMBOLECTOMY OR THROMBECTOMY, FEMOROPOPLITEAL, AORTOILIAC ARTERY BY LEG INCISION (WRVU 19.48) performed by Fito Summers MD at [facility] MAIN OR ??? PRO SMALL BOWEL ENDOSCOPY, PAST 2ND DUOD N/A 06/25/2022 SMALL BOWEL ENTEROSCOPY performed by [facility] MD at [facility] Ponce MD at [facility] ENDOSCOPY SOCIAL HX: Social History [...] month ??? fluticasone propionate (FLONASE) 50 mcg/actuation [place], Suspension 1 spray by Each Nare route [...] appropriate affect Labs: Labs personally reviewed in [facility] CBC: Recent Labs 12/08/22 1751 WBC 6.6 [...] IMAGING: Reports and images personally reviewed in [facility]. Images independently interpreted. No orders to display ENDOSCOPY: Reports and images personally reviewed in [facility] Colonoscopy 06/2022: Impression: ?- The examined portion [...] OSH w/recurrent symptomatic anemia now transferred to [facility] for further care. [...] NPO other than prep/meds [facility]. - Night [...] 12/12/2022 8:19 AM EST RAPID COVID-19 PCR ([facility]) Routine 12/12/2022 6:12 AM EST BASIC METABOLIC [...] Routine 12/09/2022 11:22 AM EST Colonoscopy, Diagnostic ([id number]) 12/09/2022 11:18 AM EST hematochezia HEMOGRAM Routine [...] Cell 5.6 4.0 - 9.5 x10(3)/mc L [facility] Red Blood Cell 3.62(L) 4.58 - 5.54 x10(6)/mc L [facility] Hemoglobin 9.7(L) 13.7 - 16.5 g/dL [facility] Hematocrit 31.0(L) 40.5 - 48.5 % [facility] Mean Cell Volume 85.6 82.9 - 93.1 fL [facility] Mean Cell Hemoglobin 26.8(L) 27.5 - 32.1 pg [facility] Mean Cell Hemoglobin Concentration 31.3(L) 32.0 - 35.7 g/dL [facility] Platelet 180 145 - 357 x10(3)/mc L [facility] RDW Standard Deviation 59.0(H) 36.0 - 45.0 fL [facility] RDW coefficient of variation 18.6(H) 11.4 - 13.8 % [facility] Mean Platelet Volume 10.7 7.6 - 12.9 fL [facility] NRBC% auto 0.0 % [facility] NRBC Absolute 0.000 0.000 - 0.000 x10(3)/mc L [facility] Blood 12/12/2022 8:19 AM EST 12/12/2022 8:58 AM EST Narrative Resulting Agency Comment Spec In Lab Aristides Hinds MD HEMATOLOGY ORDERAB LES [facility] [place] [address] * COVID-19 PCR (12/12/2022 6:12 AM EST) SARS-CoV-2 RNA (Rapid) Not Detected Not Detected [facility] Comment: This result should be [...] using the Simplexa COVID-19 Direct Assay by [employer] as authorized by the FDA issued Emergency [...] Department of Pathology and Laboratory Medicine at [facility], certified under the Clinical Laboratory Improvement Amendments [...] fact sheets at the following FDA website: https://www.fda.gov/medical-devices/fsnadddwqia-sklifom-5593-orjse-64-yrzvqhjlm- use-a suhbiowhgpnsd-yldywgy-xhijwtu/rcjul-zyryuksakfy-jwlz SARS-CoV-2 Source FRONT END SPECIALIST Swab [facility] Nasopharyngeal Swab 12/12/19 6:12 AM EST 12/12/2022 6:26 AM EST Comment:Specimen Source->Juanito opharyngeal Swab Narrative Resulting Agency Comment Spec In Lab Stu Padilla MD MICROBIOLOGY - GENER AL ORDERABLES [facility] [place] [address] * (ABNORMAL) Basic Metabolic Panel (non-fasting) (12/12/2022 12:30 AM EST) Glucose 283(H) 65 - 199 mg/dL [facility] Comment:Diabetes: >=200 mg/d L plus symptoms Blood Urea Nitrogen 15 10 - 20 mg/dL [facility] Creatinine 0.92 0.80 - 1.50 mg/dL [facility] Sodium 141 135 - 145 mmol/L [facility] Potassium 3.9 3.5 - 5.0 mmol/L [facility] Comment: Please note: ??Patients with WBC >100,000 may have falsely elevated Potassium levels. ??For accurate Potassium quantification in these patients send serum separator tube (gold top) for subsequent determinations. ??Contact the Clinical Chemistry Laboratory if there are any questions. Chloride 107 98 - 107 mmol/L [facility] Carbon Dioxide 24 22 - 31 mmol/L [facility] Anion Gap 10 5 - 15 mmol/L [facility] Calcium 8.7 8.5 - 10.5 mg/dL [facility] Est Glomerular Filtration Rate 84 >=60 mL/min/1. 73 m?? [facility] Comment: This patient's estimated [...] MD CHEMISTRY ORDERABL ES Performing Organization Address City/State/[facility] Co de Phone Number [facility] [place] [address] * (ABNORMAL) Differential, Automated (12/11/2022 4:45 AM EST) Neutrophil % 64.0 % [facility] Neutrophil Absolute 5.22 1.70 - 6.10 x10(3)/mc L [facility] Lymph % 21.5 % [facility] Lymphocytes Abs 1.8 0.9 - 3.2 x10(3)/mc L [facility] Monocyte % 12.1 % [facility] Monocyte Abs 1.0(H) 0.3 - 0.9 x10(3)/mc L [facility] Eos % 1.6 % [facility] Eosinophils Abs 0.1 0.0 - 0.4 x10(3)/mc L [facility] Basophil % 0.4 % [facility] Baso Absolute 0.0 0.0 - 0.1 x10(3)/mc L [facility] Immature Gran % 0.40 % [facility] Comment: Immature granulocytes(IG's)percentage and absolute count will include metamyelocytes, myelocytes, and promyelocytes. Blood smears from CBCs yielding IG's will be scanned manually for concordance. If this scan disagrees with the automated IG or if promyelocytes are noted, a manual differential will be performed. Immature Gran Absolute 0.03 0.00 - 0.04 x10(3)/mc L [facility] Blood 12/11/2022 4:45 AM EST 12/11/2022 6:48 AM EST Narrative Resulting Agency Comment Spec In Lab Augustin Lou MD HEMATOLOGY ORDERABLE S Performing Organization Address City/State/[facility] Co de Phone Number [facility] [place] [address] * (ABNORMAL) Hemogram (12/11/2022 4:45 AM EST) White Blood Cell 8.2 4.0 - 9.5 x10(3)/mc L [facility] Red Blood Cell 3.57(L) 4.58 - 5.54 x10(6)/mc L [facility] Hemoglobin 9.4(L) 13.7 - 16.5 g/dL [facility] Hematocrit 30.6(L) 40.5 - 48.5 % [facility] Mean Cell Volume 85.7 82.9 - 93.1 fL [facility] Mean Cell Hemoglobin 26.3(L) 27.5 - 32.1 pg [facility] Mean Cell Hemoglobin Concentration 30.7(L) 32.0 - 35.7 g/dL [facility] Platelet 185 145 - 357 x10(3)/mc L [facility] RDW Standard Deviation 60.1(H) 36.0 - 45.0 fL [facility] RDW coefficient of variation 19.4(H) 11.4 - 13.8 % [facility] Mean Platelet Volume 11.3 7.6 - 12.9 fL [facility] NRBC% auto 0.0 % [facility] NRBC Absolute 0.000 0.000 - 0.000 x10(3)/mc L [facility] Blood 12/11/2022 4:45 AM EST 12/11/2022 6:48 AM EST Narrative Resulting Agency Comment Spec In Lab Augustin Lou MD HEMATOLOGY ORDERABLE S Performing Organization Address City/[facility]/ZIP Co de Phone Number [facility] [place] [address] * Heparin (unfractionated) Level (12/11/2022 4:45 AM EST) UF Heparin 0.80 IU/mL [facility] Comment: Specimen drawn more than one [...] MD HEMATOLOGY ORDERAB LES Performing Organization Address City/[facility]/ZIP Co de Phone Number [facility] [place] [address] * Basic Metabolic Panel (non-fasting) (12/11/2022 4:45 AM EST) Glucose Not Perf 65 - 199 [facility] Comment: Sample improperly processed prior to receipt. Diabetes: >=200 mg/dL plus symptoms Blood Urea Nitrogen 15 10 - 20 mg/dL [facility] Creatinine 1.10 0.80 - 1.50 mg/dL [facility] Sodium 143 135 - 145 mmol/L [facility] Potassium 3.7 3.5 - 5.0 mmol/L [facility] Comment: Please note: ??Patients with WBC >100,000 may have falsely elevated Potassium levels. ??For accurate Potassium quantification in these patients send serum separator tube (gold top) for subsequent determinations. ??Contact the Clinical Chemistry Laboratory if there are any questions. Chloride 106 98 - 107 mmol/L [facility] Carbon Dioxide 26 22 - 31 mmol/L [facility] Anion Gap 11 5 - 15 mmol/L [facility] Calcium 8.9 8.5 - 10.5 mg/dL [facility] Est Glomerular Filtration Rate 68 >=60 mL/min/1. 73 m?? [facility] Comment: This patient's estimated [...] Lab Aristides Hinds MD CHEMISTRY ORDERABL ES [facility] [place] [address] * Heparin (unfractionated) Level (12/10/2022 10:35 PM EST) UF Heparin 0.72 IU/mL [facility] Comment: Heparin [...] Lab Aristides Hinds MD HEMATOLOGY ORDERAB LES [facility] [place] [address] * (ABNORMAL) Hemogram (12/10/2022 10:35 PM EST) White Blood Cell 6.8 4.0 - 9.5 x10(3)/mc L [facility] Red Blood Cell 3.62(L) 4.58 - 5.54 x10(6)/mc L [facility] Hemoglobin 9.6(L) 13.7 - 16.5 g/dL [facility] Hematocrit 31.4(L) 40.5 - 48.5 % [facility] Mean Cell Volume 86.7 82.9 - 93.1 fL [facility] Mean Cell Hemoglobin 26.5(L) 27.5 - 32.1 pg [facility] Mean Cell Hemoglobin Concentration 30.6(L) 32.0 - 35.7 g/dL [facility] Platelet 177 145 - 357 x10(3)/mc L [facility] RDW Standard Deviation 62.9(H) 36.0 - 45.0 fL [facility] RDW coefficient of variation 19.8(H) 11.4 - 13.8 % [facility] Mean Platelet Volume 10.5 7.6 - 12.9 fL [facility] NRBC% auto 0.0 % [facility] NRBC Absolute 0.000 0.000 - 0.000 x10(3)/mc L [facility] Blood 12/10/2022 10:3 5 PM EST 12/10/2022 10:42 PM EST Narrative Resulting Agency Comment Spec In Lab Aristides Hinds MD HEMATOLOGY ORDERAB LES Performing Organization Address City/[facility]/ZIP Co de Phone Number [facility] [place] [address] * Heparin (unfractionated) Level (12/10/2022 4:40 PM EST) Pathologist [facility] UF Heparin 0.49 IU/mL [facility] Comment: Heparin (anti-Xa) levels should be [...] MD HEMATOLOGY ORDERAB LES Performing Organization Address City/[facility] Co de Phone Number [facility] [place] [address] * (ABNORMAL) Basic Metabolic Panel (non-fasting) (12/10/2022 10:08 AM EST) Glucose 261(H) 65 - 199 mg/dL [facility] Comment:Diabetes: >=200 mg/d L plus symptoms Blood Urea Nitrogen 12 10 - 20 mg/dL [facility] Creatinine 1.01 0.80 - 1.50 mg/dL [facility] Sodium 142 135 - 145 mmol/L [facility] Potassium 4.0 3.5 - 5.0 mmol/L [facility] Comment: Please note: ??Patients with WBC >100,000 may have falsely elevated Potassium levels. ??For accurate Potassium quantification in these patients send serum separator tube (gold top) for subsequent determinations. ??Contact the Clinical Chemistry Laboratory if there are any questions. Chloride 109(H) 98 - 107 mmol/L [facility] Carbon Dioxide 23 22 - 31 mmol/L [facility] Anion Gap 10 5 - 15 mmol/L [facility] Calcium 8.7 8.5 - 10.5 mg/dL [facility] Est Glomerular Filtration Rate 75 >=60 mL/min/1. 73 m?? [facility] Comment: This patient's estimated GFR [...] Lab Aristides Hinds MD CHEMISTRY ORDERABL ES [facility] [address] [place] [address] * Differential, Automated (12/10/2022 9:20 AM EST) Neutrophil % 62.4 % [facility] Neutrophil Absolute 3.90 1.70 - 6.10 x10(3)/[facility] Lymph % 21.7 % [facility] Lymphocytes Abs 1.4 0.9 - 3.2 x10(3)/[facility] Monocyte % 13.4 % [facility] Monocyte Abs 0.8 0.3 - 0.9 x10(3)/[facility] Eos % 1.6 % [facility] Eosinophils Abs 0.1 0.0 - 0.4 x10(3)/[facility] Basophil % 0.6 % [facility] Baso Absolute 0.0 0.0 - 0.1 x10(3)/mcL [facility] Immature Gran % 0.30 % [facility] Comment: Immature granulocytes(IG's)percentage and absolute count will include metamyelocytes, myelocytes, and promyelocytes. Blood smears from CBCs yielding IG's will be scanned manually for concordance. If this scan disagrees with the automated IG or if promyelocytes are noted, a manual differential will be performed. Immature Gran Absolute 0.02 0.00 - 0.04 x10(3)/[facility] Blood 12/10/2022 9:20 AM EST 12/10/2022 9:27 AM EST Narrative Resulting Agency Comment Spec In Lab Augustin Lou MD HEMATOLOGY ORDERABLE S [facility] [place] [address] * (ABNORMAL) Hemogram (12/10/2022 9:20 AM EST) White Blood Cell 6.3 4.0 - 9.5 x10(3)/mc L [facility] Red Blood Cell 3.46(L) 4.58 - 5.54 x10(6)/mc L [facility] Hemoglobin 9.4(L) 13.7 - 16.5 g/dL [facility] Hematocrit 30.1(L) 40.5 - 48.5 % [facility] Mean Cell Volume 87.0 82.9 - 93.1 fL [facility] Mean Cell Hemoglobin 27.2(L) 27.5 - 32.1 pg [facility] Mean Cell Hemoglobin Concentration 31.2(L) 32.0 - 35.7 g/dL [facility] Platelet 180 145 - 357 x10(3)/mc L [facility] RDW Standard Deviation 63.2(H) 36.0 - 45.0 fL [facility] RDW coefficient of variation 19.9(H) 11.4 - 13.8 % [facility] Mean Platelet Volume 10.4 7.6 - 12.9 fL [facility] NRBC% auto 0.0 % [facility] NRBC Absolute 0.000 0.000 - 0.000 x10(3)/mc L [facility] Blood 12/10/2022 9:20 AM EST 12/10/2022 9:27 AM EST Narrative Resulting Agency Comment Spec In Lab Augustin Lou MD HEMATOLOGY ORDERABLE S Performing Organization Address City/[facility]/[place] [address] * Differential, Automated (12/09/2022 5:42 PM EST) Neutrophil % 63.5 % [facility] Neutrophil Absolute 3.67 1.70 - 6.10 x10(3)/[facility] Lymph % 19.7 % [facility] Lymphocytes Abs 1.1 0.9 - 3.2 x10(3)/[facility] Monocyte % 14.4 % [facility] Monocyte Abs 0.8 0.3 - 0.9 x10(3)/[facility] Eos % 1.6 % [facility] Eosinophils Abs 0.1 0.0 - 0.4 x10(3)/[facility] Basophil % 0.5 % [facility] Baso Absolute 0.0 0.0 - 0.1 x10(3)/[facility] Immature Gran % 0.30 % [facility] Comment: Immature granulocytes(IG's)percentage and absolute count will include metamyelocytes, myelocytes, and promyelocytes. Blood smears from CBCs yielding IG's will be scanned manually for concordance. If this scan disagrees with the automated IG or if promyelocytes are noted, a manual differential will be performed. Immature Gran Absolute 0.02 0.00 - 0.04 x10(3)/[facility] Blood 12/09/2022 5:42 PM EST 12/09/2022 5:53 PM EST Narrative Resulting Agency Comment Spec In Lab Augustin Lou MD HEMATOLOGY ORDERABLE S Performing Organization Address City/[facility]/[place] [address] * (ABNORMAL) Hemogram (12/09/2022 5:42 PM EST) White Blood Cell 5.8 4.0 - 9.5 x10(3)/[facility] Red Blood Cell 3.39(L) 4.58 - 5.54 x10(6)/[facility] Hemoglobin 9.0(L) 13.7 - 16.5 g/dL [facility] Hematocrit 28.8(L) 40.5 - 48.5 % [facility] Mean Cell Volume 85.0 82.9 - 93.1 fL [facility] Mean Cell Hemoglobin 26.5(L) 27.5 - 32.1 pg [facility] Mean Cell Hemoglobin Concentration 31.3(L) 32.0 - 35.7 g/dL [facility] Platelet 167 145 - 357 x10(3)/[facility] RDW Standard Deviation 61.7(H) 36.0 - 45.0 fL [facility] RDW coefficient of variation 20.3(H) 11.4 - 13.8 % [facility] Mean Platelet Volume 10.2 7.6 - 12.9 fL [facility] NRBC% auto 0.0 % [facility] NRBC Absolute 0.000 0.000 - 0.000 x10(3)/[facility] Blood 12/09/2022 5:42 PM EST 12/09/2022 5:53 PM EST Narrative Resulting Agency Comment Spec In Lab Augustin Lou MD HEMATOLOGY ORDERABLE S [facility] [place] [place] [address] * COLONOSCOPY (12/09/2022 11:22 AM EST) COLONOSCOPY [facility] Endoscopy Procedure Date: 12/09/2022 11:22 AM ? Patient Name: Koko Zamora ? Date of : 1940 ? Age: 82 ? Order #: [id number] ? Instrument Name: ? Procedure: ? Colonoscopy [...] 12:30 AM EST) Neutrophil % 61.7 % [facility] Neutrophil Absolute 4.49 1.70 - 6.10 x10(3)/[facility] Lymph % 22.9 % [facility] Lymphocytes Abs 1.7 0.9 - 3.2 x10(3)/[facility] Monocyte % 12.5 % [facility] Monocyte Abs 0.9 0.3 - 0.9 x10(3)/[facility] Eos % 1.8 % [facility] Eosinophils Abs 0.1 0.0 - 0.4 x10(3)/[facility] Basophil % 0.7 % [facility] Baso Absolute 0.0 0.0 - 0.1 x10(3)/[facility] Immature Gran % 0.40 % [facility] Comment: Immature granulocytes(IG's)percentage and absolute count will include metamyelocytes, myelocytes, and promyelocytes. Blood smears from CBCs yielding IG's will be scanned manually for concordance. If this scan disagrees with the automated IG or if promyelocytes are noted, a manual differential will be performed. Immature Gran Absolute 0.03 0.00 - 0.04 x10(3)/mcL [facility] Blood 12/09/2022 12:3 0 AM EST 12/09/2022 12:50 AM EST Narrative Resulting Agency Comment Spec In Lab Augustin Lou MD HEMATOLOGY ORDERABLE S Performing Organization Address City/[facility]/ZIP Co de Phone Number [facility] [place] [address] * (ABNORMAL) Hemogram (12/09/2022 12:30 AM EST) White Blood Cell 7.3 4.0 - 9.5 x10(3)/mc L [facility] Red Blood Cell 3.44(L) 4.58 - 5.54 x10(6)/mc L [facility] Hemoglobin 9.2(L) 13.7 - 16.5 g/dL [facility] Hematocrit 29.3(L) 40.5 - 48.5 % [facility] Mean Cell Volume 85.2 82.9 - 93.1 fL [facility] Mean Cell Hemoglobin 26.7(L) 27.5 - 32.1 pg [facility] Mean Cell Hemoglobin Concentration 31.4(L) 32.0 - 35.7 g/dL [facility] Platelet 183 145 - 357 x10(3)/mc L [facility] RDW Standard Deviation 62.1(H) 36.0 - 45.0 fL [facility] RDW coefficient of variation 20.3(H) 11.4 - 13.8 % [facility] Mean Platelet Volume 10.5 7.6 - 12.9 fL [facility] NRBC% auto 0.0 % [facility] NRBC Absolute 0.000 0.000 - 0.000 x10(3)/mc L [facility] Blood 12/09/2022 12:3 0 AM EST 12/09/2022 12:50 AM EST Narrative Resulting Agency Comment Spec In Lab Augustin Lou MD HEMATOLOGY ORDERABLE S [facility] [place] [address] * Phosphorus (12/09/2022 12:30 AM EST) Phosphorus 2.8 2.5 - 4.5 mg/dL [facility] Blood 12/09/2022 12:3 0 AM EST 12/09/2022 12:50 AM EST Narrative Resulting Agency Comment Spec In Lab Stu Padilla MD CHEMISTRY ORDERABLES Performing Organization Address [facility] Co de Phone Number [facility] [place] [address] * Magnesium (12/09/2022 12:30 AM EST) Magnesium 0.80 0.69 - 1.07 mmol/L [facility] Blood 12/09/2022 12:3 0 AM EST 12/09/2022 12:50 AM EST Narrative Resulting Agency Comment Spec In Lab Stu Padilla MD CHEMISTRY ORDERABLES Performing Organization Address [facility] de Phone Number [facility] [place] [address] * (ABNORMAL) Basic Metabolic Panel (non-fasting) (12/09/2022 12:30 AM EST) Glucose 151 65 - 199 mg/dL [facility] Comment:Diabetes: >=200 mg/d L plus symptoms Blood Urea Nitrogen 14 10 - 20 mg/dL [facility] Creatinine 0.88 0.80 - 1.50 mg/dL [facility] Sodium 142 135 - 145 mmol/L [facility] Potassium 3.7 3.5 - 5.0 mmol/L [facility] Comment: Please note: ??Patients with WBC >100,000 may have falsely elevated Potassium levels. ??For accurate Potassium quantification in these patients send serum separator tube (gold top) for subsequent determinations. ??Contact the Clinical Chemistry Laboratory if there are any questions. Chloride 109(H) 98 - 107 mmol/L [facility] Carbon Dioxide 22 22 - 31 mmol/L [facility] Anion Gap 11 5 - 15 mmol/L [facility] Calcium 8.5 8.5 - 10.5 mg/dL [facility] Est Glomerular Filtration Rate 87 >=60 mL/min/1. 73 m?? [facility] Comment: This patient's estimated [...] Padilla MD CHEMISTRY ORDERABLES Performing Organization Address City/[facility]/ZIP Co de Phone Number [facility] [place] [address] * Type and Screen Validity (12/08/2022 5:51 PM EST) T&S only valid at [facility] Comment:This Type and Screen result is only valid at the [facility] Blood 12/08/2022 5:51 PM EST 12/08/2022 5:55 PM EST Narrative Resulting Agency Comment Spec In Lab Augustin Lou MD BLOOD BANK LAB ORDER NICK Performing Organization Address City/[facility]/ZIP Co de Phone Number [facility] [place] [address] * ABORH Recheck Status (12/08/2022 5:51 PM EST) ABORH Type Recheck Completed [facility] Blood 12/08/2022 5:51 PM EST 12/08/2022 5:55 PM EST Narrative Resulting Agency Comment Spec In Lab Augustin Lou MD BLOOD BANK LAB ORDER NICK Performing Organization Address City/[facility]/[place] [address] * Differential, Automated (12/08/2022 5:51 PM EST) Pathologist [facility] Neutrophil % 62.4 % [facility] Neutrophil Absolute 4.12 1.70 - 6.10 x10(3)/[facility]ORATORY Lymph % 22.8 % [facility] Lymphocytes Abs 1.5 0.9 - 3.2 x10(3)/[facility]OR[facility]ORY Monocyte % 11.6 % [facility] Monocyte Abs 0.8 0.3 - 0.9 x10(3)/[facility] LABORATORY Eos % 2.0 % [facility] Eosinophils Abs 0.1 0.0 - 0.4 x10(3)/[facility] Basophil % 0.6 % [facility] Baso Absolute 0.0 0.0 - 0.1 x10(3)/[facility]OR[facility]ORY Immature Gran % 0.60 % [facility] Comment: Immature granulocytes(IG's)percentage and absolute count will include metamyelocytes, myelocytes, and promyelocytes. Blood smears from CBCs yielding IG's will be scanned manually for concordance. If this scan disagrees with the automated IG or if promyelocytes are noted, a manual differential will be performed. Immature Gran Absolute 0.04 0.00 - 0.04 x10(3)/[facility] Blood 12/08/2022 5:51 PM EST 12/08/2022 5:57 PM EST Narrative Resulting Agency Comment Spec In Lab Augustin Lou MD HEMATOLOGY ORDERABLE S Performing Organization Address City/[facility]/[place] [address] * (ABNORMAL) Hemogram (12/08/2022 5:51 PM EST) White Blood Cell 6.6 4.0 - 9.5 x10(3)/mc L [facility] Red Blood Cell 3.47(L) 4.58 - 5.54 x10(6)/mc L [facility] Hemoglobin 9.4(L) 13.7 - 16.5 g/dL [facility] Hematocrit 29.9(L) 40.5 - 48.5 % [facility] Mean Cell Volume 86.2 82.9 - 93.1 fL [facility] Mean Cell Hemoglobin 27.1(L) 27.5 - 32.1 pg [facility] Mean Cell Hemoglobin Concentration 31.4(L) 32.0 - 35.7 g/dL [facility] Platelet 184 145 - 357 x10(3)/mc L [facility] RDW Standard Deviation 62.3(H) 36.0 - 45.0 fL [facility] RDW coefficient of variation 20.1(H) 11.4 - 13.8 % [facility] Mean Platelet Volume 10.9 7.6 - 12.9 fL [facility] NRBC% auto 0.0 % [facility] NRBC Absolute 0.000 0.000 - 0.000 x10(3)/mc L [facility] Blood 12/08/2022 5:51 PM EST 12/08/2022 5:57 PM EST Narrative Resulting Agency Comment Spec In Lab Augustin Lou MD HEMATOLOGY ORDERABLE S Performing Organization Address City/[facility]/ZIP Co de Phone Number [facility] [place] [address] * Antibody screen (12/08/2022 5:51 PM EST) Ab Screen Interp Negative [facility] Expires at [id number] on: 12/11/2022 [facility] Blood 12/08/2022 5:51 PM EST 12/08/2022 5:55 PM EST Narrative Resulting Agency Comment Spec In Lab Augustin Lou MD BLOOD BANK LAB ORDER NICK Performing Organization Address City/[facility]/ZIP Co de Phone Number [facility] [place] [address] * ABO/Rh Typing (12/08/2022 5:51 PM EST) ABORH Type O Pos [facility] Blood 12/08/2022 5:51 PM EST 12/08/2022 5:55 PM EST Narrative Resulting Agency Comment Spec In Lab Augustin Lou MD BLOOD BANK LAB ORDER NICK Performing Organization Address City/[facility]/ZIP Co de Phone Number [facility] [place] [address] * APTT (12/08/2022 5:51 PM EST) Partial Thromboplastin Time 28 25 - 37 sec [facility] Comment: The PTT is NOT appropriate for heparin monitoring. Use the Anti-Xa level for heparin monitoring (HEP UFH) or LMWH monitoring (HEP LMW). A PTT less than 37 seconds generally indicates adequate hemostasis. Blood 12/08/2022 5:51 PM EST 12/08/2022 5:57 PM EST Narrative Resulting Agency Comment Spec In Lab Stu Padilla MD HEMATOLOGY ORDERABLE S Performing Organization Address [facility] Co de Phone Number [facility] [place] [address] * (ABNORMAL) Prothrombin Time (12/08/2022 5:51 PM EST) Prothrombin Time 12.6(H) 9.4 - 12.5 sec [facility] International Normalization Ratio 1.1 [facility] Comment: An INR <2.0 [...] MD HEMATOLOGY ORDERABLE S Performing Organization Address City/[facility]/ZIP Co de Phone Number [facility] [place] [address] * Hepatic Function Panel (12/08/2022 5:51 PM EST) Protein, Total 6.1 6.1 - 8.0 g/dL [facility] Albumin 3.8 3.2 - 5.2 g/dL [facility] Aspartate Aminotransferase 14 0 - 39 unit/L [facility] Alanine Aminotransferase 20 0 - 55 unit/L [facility] Alkaline Phosphatase 86 40 - 130 unit/L [facility] Bilirubin, Total 1.2 0.2 - 1.3 mg/dL [facility] Bilirubin, Direct 0.2 0.0 - 0.3 mg/dL [facility] Blood 12/08/2022 5:51 PM EST 12/08/2022 5:57 PM EST Narrative Resulting Agency Comment Spec In Lab Stu Padilla MD CHEMISTRY ORDERABLES [facility] [place] [address] * (ABNORMAL) Basic Metabolic Panel (non-fasting) (12/08/2022 5:51 PM EST) Glucose 201(H) 65 - 199 mg/dL [facility] Comment:Diabetes: >=200 mg/d L plus symptoms Blood Urea Nitrogen 16 10 - 20 mg/dL [facility] Creatinine 0.87 0.80 - 1.50 mg/dL [facility] Sodium 138 135 - 145 mmol/L [facility] Potassium 4.0 3.5 - 5.0 mmol/L [facility] Comment: Please note: ??Patients with WBC >100,000 may have falsely elevated Potassium levels. ??For accurate Potassium quantification in these patients send serum separator tube (gold top) for subsequent determinations. ??Contact the Clinical Chemistry Laboratory if there are any questions. Chloride 107 98 - 107 mmol/L [facility] Carbon Dioxide 22 22 - 31 mmol/L [facility] Anion Gap 9 5 - 15 mmol/L [facility] Calcium 8.7 8.5 - 10.5 mg/dL [facility] Est Glomerular Filtration Rate 87 >=60 mL/min/1. 73 m?? 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
--- OUTSIDE RECORDS SUMMARY | 2024-09-30 17:02 | XMS_ITS | Encounter Summary ---
Author Organization [facility], [facility] Address [facility] [place] [address] Care Team Providers Care Lead Case Manager Name Role Phone Bobby Das MD Primary Care Provider Reason for Visit * Reason Comments Medication Refill Encounter Details Date Type Department Care Team (Late st Contact Info) Description 07/31/2022 Refill [place] [address] Nasrin Parra PA [facility] [place] [address] Social History Tobacco Use Types Packs/Day Years [...] filedocumented in this encounter Care Teams Lead Case Manager Relationship Specialty Start Date End Date Bobby Das MD [address] [place] [address] [place] [phone] PCP - General 10/02/10 documented as of this encounter
--- OUTSIDE RECORDS SUMMARY | 2024-09-30 17:02 | XMS_ITS | Encounter Summary ---
Author Organization [facility] [place] [address] Care Team Providers Care Umbrella Finisher Name Role Phone Bobby Das MD Primary Care Provider [phone] Reason for Referral * Consultation (Routine) - Closed Specialty Diagnoses / Procedures Referred By Contact Referred To Contact Electrophysiology / Cardiology Diagnoses HFrEF (heart failure with reduced ejection fraction) EF=30%, poss. ICD vs WASTEWATER PROCESS ENGINEER-D Alan Reid MD [facility] [place] [address] [facility] [address] [place] [phone] Referral ID Status Reason Start Date Expiration Date V isits Requested Visits Authorized [id number] Closed Consult, Test & Treat 09/05/2022 09/05/2023 1 1 Encounter Details Date Type Department Care Team (Late st Contact Info) Description 09/05/2022 2:00 PM EDT Office Visit Cardiology at [address] [address] Alan Reid MD [facility] [place] [address] HFrEF (heart failure with reduced ejection fraction); Permanent atrial fibrillation; 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 [facility] [place] [address] CARDIOLOGY OUTPATIENT PROGRESS NOTE PRIMARY CARE PROVIDER: Bobby Das MD REFERRING PROVIDER: Bobby Das PROBLEM LIST: Patient Active Problem List Diagnosis ??? 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 Hypertriglyceridemia ??? [...] 1 ??? fluticasone propionate (FLONASE) 50 mcg/actuation [place], Suspension 1 spray by Each Nare route [...] Abdomen: Nondistended. Soft. Nontender. Extremities: No edema. FACILITIES TECHNICIAN: Normal mentation. Psych: Appropriate affect. Labs: [...] fraction this is a borderline indication for WASTEWATER PROCESS ENGINEER-D. Alfred going to set up an appointment [...] for thromboembolic complications. 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
--- OUTSIDE RECORDS SUMMARY | 2024-09-30 17:02 | XMS_ITS | Encounter Summary ---
Author Organization [facility] Address [facility] [place] [address] Care Team Providers Care Manager Reporting Name Role Phone Bobby Das MD Primary Care Provider [phone] Encounter Details Date Type Department Care Team (Latest Contact Info) Description 06/25/2022 10:32 AM EDT - 06/25/2022 12:59 PM EDT Hospital En[place] [address] Giovani Ponce MD [facility] [place] [address] Discharge Disposition: Another HCF/Not Defined Social History [...] the day after the procedure, use an rllf-gkr-zphuyia spray to numb your throat. Sucking on [...] occurs, please contact your Doctor. Please call [phone] before 8pm Mon-Fri with problems, questions or concerns. If you call after 8pm or on weekends, call the Hospital at [phone] and ask to speak to the Banana Grader animation camera operator and the straw hat washer operator will contact that person for you. When should you call for help? Call [phone] anytime you think you may need emergency [...] Where can you learn more? [facility] View your After Visit Summary and more online at [email or web address] If you would like to provide feedback about your hospital experience, please call the Office of Patient and Family Relations at . If you have received this After Visit Summary in error, please immediately return it in person to the department, or notify the [facility] Privacy Office by calling toll free at between the hours of 8AM and 5PM to arrange for our retrieval of the documents at no cost to you. Content Version: 12.2 ?? 4912-4083 [employer]. Care instructions adapted under license by [facility]. If you have questions about a medical condition or this instruction, always ask your healthcare professional. [employer] disclaims any warranty or liability for your [...] occurs, please contact your Doctor. Please call [phone] before 8pm Mon-Fri with problems, questions or concerns. If you call after 8pm or on weekends, call the Hospital at [phone] and ask to speak to the Banana Grader animation camera operator and the straw hat washer operator will contact that person for you. When should you call for help? Call [phone] anytime you think you may need emergency [...] any problems. Where can you learn more? [facility]- View your After Visit Summary and more online at [email or web address] If you would like to provide feedback about your hospital experience, please call the Office of Patient and Family Relations at . If you have received this After Visit Summary in error, please immediately return it in person to the department, or notify the [facility] Privacy Office by calling toll free at between the hours of 8AM and 5PM to arrange for our retrieval of the documents at no cost to you. Content Version: 12.2 ?? 4310-1038 [employer]. Care instructions adapted under license by [facility]. If you have questions about a medical condition or this instruction, always ask your healthcare professional. [employer] disclaims any warranty or liability for your use of this information. documented in this encounter Medications at Time of Discharge Medication Sig Dispensed Refills Start Date End Date fluticasone propionate (FLONASE) 50 mcg/actuation [place], Suspension 1 spray by Each Nare route [...] ischemia I99.8 ??? Coronary artery disease involving [place]uyall[place] coronary artery of [place] heart without angina pectoris I25.10 ??? HFrEF [...] Comments Small Bowel Endoscopy, Past 2Nd Duod (58447) 06/25/2022 11:01 AM EDT melena +./- Colonoscopy, Flexible W Control Bleeding, Any Method (30839) 06/25/2022 11:01 AM EDT melena +./- Upper GI Endoscopy, Diagnostic (27771) 06/25/2022 11:01 AM EDT melena +./- UPPER GI ENDOSCOPY Routine 06/25/2022 10 :33 AM EDT COLONOSCOPY Routine 06/25/2022 10:33 AM EDT documented in this encounter Results * UPPER GI ENDOSCOPY (06/25/2022 10:33 AM EDT) UPPER GI ENDOSCOPY [facility] Endoscopy ___ Procedure Date: 06/25/2022 10:33 AM ? Patient Name: Koko Zamora ? Date of : 1940 ? Age: 81 ? Order #: [id number] ? Instrument Name: [id number]- [id number]- [id number] ? ___ Procedure: ? Upper GI endoscopy [...] * COLONOSCOPY (06/25/2022 10:33 AM EDT) COLONOSCOPY [facility] Endoscopy ___ Procedure Date: 06/25/2022 10:33 AM ? Patient Name: Koko Zamora ? Date of : 1940 ? Age: 81 ? Order #: [id number] ? Instrument Name: EC-760P- [id number] ? ___ Procedure: ? Colonoscopy Indications: ? [...] Procedure Code(s): ? --- Professional --- ? 90333, Colonoscopy, flexible; with ? control of bleeding, [...] of sigmoid ? colon CPT copyright 2020 [employer]. All rights reserved. The codes documented in this report are preliminary and upon accordion maker review may be revised to meet current [...] DION) documented in this encounter Care Teams Manager Reporting Relationship Specialty Start Date End Date Bboby Das MD [address] [place] [address] [place] [address] PCP - General 10/02/10 documented as of this encounter
--- OUTSIDE RECORDS SUMMARY | 2024-09-30 17:02 | XMS_ITS | Encounter Summary ---
Author Organization [place] [address] Care Team Providers Care Newcomer Hostess Name Role Phone Abby Das MD Primary Care Provider [phone] Encounter Details Date Type Department Care Team (Late st Contact Info) Description 06/25/2022 11:01 AM EDT Anesthesia [place] [address] Abby Aguilar MD [facility] DR ANEST[place] [address] David Gill CRNA [facility] [place] [address] Anesthesia Record Procedure Summary Procedure Name Responsible [...] 1046; median cubital vein (antecubital fossa), left; efjk-ygs-ggvtmj catheter system; 18 gauge; Present on admission; LDA not present upon assessment; 12/08/22; 17406/25/22 1046 by Mame Peterson RN 12/08/22 1742 by Margy Knapp (RETIRED) Peripheral IV Line - Single Lumen 06/25/22; 1046; great saphenous vein (medial side of leg), right; pyys-vuv-zzdiql catheter system; Anatomical Landmarks; 18 gauge; Present [...] Procedure Summary Date: 06/25/22 Room / Location: [facility] ENDO 4 / [facility] ENDOSCOPY Anesthesia Start: 1101 Anesthesia Stop: 1202 Procedures: EGD, UPPER GI ENDOSCOPY (N/A Trunk) COLONOSCOPY; W CONTROL OF BLEEDING, ANY METHOD (N/A Trunk) SMALL BOWEL ENTEROSCOPY (N/A Trunk) Diagnosis: (melena +./-) Surgeons: Giovani Ponce MD Responsible Provider: Abby Aguilar MD Anesthesia Type: MAC ASA Status: 3 All Anesthesia Providers: Anesthesiologist: Abby Aguilar MD BAKERY MACHINE MECHANIC: David Gill CRNA Vitals Value Taken Time [...] Date Noted ??? 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 HFrEF [...] IR Biopsy Spine 07/20/2019 Abby Marshall MD [facility] INTERVENTIONL RAD ??? IR VERTEBROPLASTY LUMBAR MULTIPLE LEVELS 07/20/2019 IR Vertebroplasty Lumbar Multiple Levels 07/20/2019 Abby Marshall MD [facility] INTERVENTIONL RAD ??? IR VERTEBROPLASTY THORACIC SINGLE LEVEL 10/25/2020 IR Vertebroplasty Thoracic Single Level 10/25/2020 Matt Chisholm MD [facility] INTERVENTIONL RAD ??? PRO EMBLC/THRMBC FEMORAL POPLITEAL AORTO-ILIAC ARTERY Left 05/15/2022 EMBOLECTOMY OR THROMBECTOMY, FEMOROPOPLITEAL, AORTOILIAC ARTERY BY LEG INCISION (WRVU 19.48) performed by Fito Summers MD at [facility] MAIN OR ??? PRO UPPER GI ENDOSCOPY, CTRL BLEED 05/31/2022 EGD, W CONTROL OF BLEEDING, ANY METHOD performed by Giovani Ponce MD at [facility] ENDOSCOPY ??? PRO UPPER GI ENDOSCOPY, DIAGNOSTIC N/A 05/31/2022 EGD, UPPER GI ENDOSCOPY performed by Giovani Ponce MD at [facility] ENDOSCOPY Social History Tobacco Use [...] risks discussed with patient. Plan discussed with BAKERY MACHINE MECHANIC. Anesthesia Screening documented in this encounter [...] mg documented in this encounter Care Teams Newcomer Hostess Relationship Specialty Start Date End Date Abby Das MD [address] [place] [address] [place] [address] PCP - General 10/02/10 documented as of this encounter
--- OUTSIDE RECORDS SUMMARY | 2024-09-30 17:02 | XMS_ITS | Encounter Summary ---
Author Organization [facility] [place] [address] Care Team Providers Care Financial Sales Associate Name Role Phone Bobby Das MD Primary Care Provider [phone] Reason for Referral * Diagnostic Test (Routine) - Closed Specialty Diagnoses / Procedures Referred By Contac t Referred To Contact Cardiology Diagnoses HFrEF (heart failure with reduced ejection fraction) Procedures Echocardiogram Transthoracic Bel Blanco MD [facility] [place] [address] [facility] [place] [place] [address] Referral ID Status Reason Start Date Expiration Date V isits Requested Visits Authorized [id number] Closed Specialty Service Requested 06/13/2022 06/13/2023 1 1 Reason for Visit * Diagnostic Test (Routine) - Closed Specialty Diagnoses / Procedures Referred By Contac t Referred To Contact Cardiology Diagnoses HFrEF (heart failure with reduced ejection fraction) Procedures Echocardiogram Transthoracic Bel Blanco MD [facility] [place] [address] [facility] [place] [address] Referral ID Status Reason Start Date Expiration Date V isits Requested Visits Authorized [id number] Closed Specialty Service Requested 06/13/2022 06/13/2023 1 1 Encounter Details Date Type Department Care Team (Latest Contact Info) Description 09/05/2022 11:56 AM EDT - 09/05/2022 11:59 PM EDT Hospital Encounter [place] [phone] Bel Blanco MD [facility] [place] [address] HFrEF (heart failure with reduced ejection fraction) [...] End Date fluticasone propionate (FLONASE) 50 mcg/actuation [place], Suspension 1 spray by Each Nare route [...] * ECHO COMPLETE (09/05/2022 1:25 PM EDT) [facility] Signature EF 30 HEARTLAB SYSTEM Anatomical Region Laterality Modality Cardiac Other 09/05/2022 12:0 3 PM EDT Narrative 09/05/2022 2:11 PM EDT ? Echocardiogram Report Name: ETTA BAH ?Study Date: 09/05/2022 12:03 PMBP: 111/59 mmHg ? Patient Location: 4A 0000 : 1940 ? Height: 173 cm ? Account: [id number] Age: 81 yrs ? Weight: 76 kg Gender: Male ?BSA: 1.9 m2 Ordering Physician: BEL BLANCO Referring Physician: BEL BLANCO Performed By: Salud Estrada Reason For Study: HFrEF Exam Location: [facility]. Interpretation Summary Technically limited imaging. [...] performed 05/16/22, findings are overall similar. Procedure Complete-[id number]. Satisfactory quality. Irregular rhythm. Left Ventricle Left [...] Date: :03 PMBP: 111/59 mmHg Patient Location: [id number] : 1940 Height: 173 cm Account: [id number] Age: 81 yrs Weight: 76 kg Gender: Male BSA: 1.9 m2 Ordering Physician: BEL BLANCO Referring Physician: BEL BLANCO Performed By: Salud Estrada Reason For Study: HFrEF Exam Location: [facility]. Interpretation Summary Technically limited imaging. [...] TTE performed 05/16/22,findings are overall similar. Procedure Complete-[id number]. Satisfactory quality. Irregular rhythm. Left Ventricle Left [...] fraction) documented in this encounter Care Teams Financial Sales Associate Relationship Specialty Start Date End Date Bobby Das MD [address] [place] [address] [place] [address] PCP - General 10/02/10 documented as of this encounter
--- OUTSIDE RECORDS SUMMARY | 2024-09-30 17:02 | XMS_ITS | Encounter Summary ---
Author Organization Count Includes [facility] Address [facility] [place] [address] Care Team Providers Care Professional Application Designer Name Role Phone Bobby Das MD Primary Care Provider [phone] Reason for Referral * Consultation (Routine) - Closed Specialty Diagnoses / Procedures Referred By Contact Referred To Contact Cardiac Rehabilitation Diagnoses HFrEF (heart failure with reduced ejection fraction) Coronary artery disease involving shoal[place] coronary artery of shoalwater heart without angina pectoris Alan Reid MD [facility] [place] [place] [address] Cardiac Rehab, [address] [place] [address] Referral ID Status Reason Start Date Expiration Date V isits Requested Visits Authorized [id number] Closed Consult, Test & Treat 06/20/2022 12/17/2022 36 36 Encounter Details Date Type Department Care Team (Late st Contact Info) Description 06/20/2022 Orders Only Cardiology [place] [address] [place] [address] Alan Reid MD [facility] [place] [address] HFrEF (heart failure with reduced ejection fraction); Coronary artery disease involving shoalwater coronary artery of shoal[place] heart without angina pectoris Social History Tobacco [...] reduced ejection fraction) Coronary artery disease involving shoal[place] coronary artery of shoalwater heart without angina pectoris Ordered: 06/20/2022 documented as of this encounter Visit Diagnoses Diagnosis HFrEF (heart failure with reduced ejection fraction) Coronary artery disease involving shoalwater coronary artery of shoalwater heart without angina pectoris documented in this encounter Care Teams Professional Application Designer Relationship Specialty Start Date End Date Bobby Das MD [address] [place] [address] [place] [address] PCP - General 10/02/10 documented as of this encounter
--- OUTSIDE RECORDS SUMMARY | 2024-09-30 17:02 | XMS_ITS | Encounter Summary ---
[place] [address] Care Team Providers Care Photograph Tinter Name Role Phone Bobby Das MD Primary Care Provider [phone] Reason for Visit * Auth/Cert (Routine) Specialty Diagnoses / Procedures Referred By Colby quezada Referred To Contact Diagnoses GI bleed gi [place] [address] [facility] Referral ID Status Reason Start Date Expiration Date Visits Re quested Visits Authorized [id number] 1 1 Encounter Details Date Type Department Care Team (Late st Contact Info) Description 12/09/2022 11:17 AM EST Anesthesia [place] [address] Fernando Boyce MD [facility] [place] [address] Anesthesia Record Procedure Summary Procedure Name Responsible [...] Procedure Summary Date: 12/09/22 Room / Location: [facility] ENDO 3 / [facility] ENDOSCOPY Anesthesia Start: 1117 Anesthesia Stop: 1209 Procedure: COLONOSCOPY, DIAGNOSTIC (Trunk) Diagnosis: (hematochezia) Surgeons: Giovani Ponce MD Responsible Provider: Fernando Boyce MD Anesthesia Type: MAC ASA Status: 3 All Anesthesia Providers: Anesthesiologist: Fernando Boyce MD SUPERVISOR SEWING ROOM: Kourtney Rosenberg CRNA Vitals Value Taken Time BP 96/63 12/09/22 1226 Temp Pulse 68 12/09/22 1227 Resp 17 12/09/22 1227 SpO2 100 % 12/09/22 1227 Pain Level 0 12/09/22 1223 Vitals shown include unvalidated device data. Patient Location: PACU/[facility] Level of Consciousness: Conscious but Sleepy [...] bleed 12/08/2022 ??? Coronary artery disease involving hoopa coronary artery of hoopa heart without angina pectoris 06/13/2022 ??? HFrEF [...] IR Biopsy Spine 07/20/2019 Bobby Marshall MD [facility] INTERVENTIONL RAD ??? IR VERTEBROPLASTY LUMBAR MULTIPLE LEVELS 07/20/2019 IR Vertebroplasty Lumbar Multiple Levels 07/20/2019 Bobby Marshall MD [facility] INTERVENTIONL RAD ??? IR VERTEBROPLASTY THORACIC SINGLE LEVEL 10/25/2020 IR Vertebroplasty Thoracic Single Level 10/25/2020 Matt Chisholm MD [facility] INTERVENTIONL RAD ??? PRO COLONOSCOPY, FLEX, W/CONTROL, BLEEDING N/A 06/25/2022 COLONOSCOPY; W CONTROL OF BLEEDING, ANY METHOD performed by Giovani Ponce MD at [facility] ENDOSCOPY ??? PRO EMBLC/THRMBC FEMORAL POPLITEAL AORTO-ILIAC ARTERY Left 05/15/2022 EMBOLECTOMY OR THROMBECTOMY, FEMOROPOPLITEAL, AORTOILIAC ARTERY BY LEG INCISION (WRVU 19.48) performed by Fito Summers MD at [facility] MAIN OR ??? PRO SMALL BOWEL ENDOSCOPY, PAST 2ND DUOD N/A 06/25/2022 SMALL BOWEL ENTEROSCOPY performed by Giovani Ponce MD at [facility] ENDOSCOPY ??? PRO UPPER GI ENDOSCOPY, CTRL BLEED 05/31/2022 EGD, W CONTROL OF BLEEDING, ANY METHOD performed by Giovani Ponce MD at [facility] ENDOSCOPY ??? PRO UPPER GI ENDOSCOPY, DIAGNOSTIC N/A 05/31/2022 EGD, UPPER GI ENDOSCOPY performed by Giovani Ponce MD at [facility] ENDOSCOPY ??? PRO UPPER GI ENDOSCOPY, DIAGNOSTIC N/A 06/25/2022 EGD, UPPER GI ENDOSCOPY performed by Giovani Ponce MD at [facility] ENDOSCOPY Social History Tobacco Use ??? [...] risks discussed with patient. Plan discussed with SUPERVISOR SEWING ROOM and attending. Anesthesia Screening documented in this [...] mg documented in this encounter Care Teams Photograph Tinter Relationship Specialty Start Date End Date Bobby Das MD [address] [place] [address] [place] [address] PCP - General 10/02/10 documented as of this encounter
--- OUTSIDE RECORDS SUMMARY | 2024-09-30 17:02 | XMS_ITS | Encounter Summary ---
Author Organization [facility] Address [facility] [place] [address] Care Team Providers Care Payroll Consultant Name Role Phone Bobby Das MD Primary Care Provider [phone] Reason for Referral * Consultation (Routine) - Closed Specialty Diagnoses / Procedures Referred By Colby quezada Referred To Contact Dermatology Diagnoses Basal cell carcinoma (BCC) of right forehead Loretta Cohen MD [facility] [place] [address] Jace Lynn MD [facility] [place] [address] Referral ID Status Reason Start Date Expiration Date V isits Requested Visits Authorized [id number] Closed Consult, Test & Treat 06/17/2022 06/17/2023 1 1 Encounter Details Date Type Department Care Team (Late st Contact Info) Description 06/17/2022 Orders Only Dermatology at [facility] [address] [place] [address] Loretta Cohen MD [facility] [place] [address] Basal cell carcinoma (BCC) of [...] forehead documented in this encounter Care Teams Payroll Consultant Relationship Specialty Start Date End Date Bobby Das MD [address] [place] [address] [place] [phone] PCP - General 10/02/10 documented as of this encounter
--- OUTSIDE RECORDS SUMMARY | 2024-09-30 17:02 | XMS_ITS | Encounter Summary ---
Author Organization [facility] [place] [address] Care Team Providers Care Tester Food Products Name Role Phone Bobby Das MD Primary Care Provider [phone] Encounter Details Date Type Department Care Team (Late st Contact Info) Description 06/19/2022 Telephone Cardiology at [address] [phone] Kourtney Jimenez, RN Social History Tobacco Use [...] Zamora: Requesting a referral to Cardiac Rehab [facility] Forward to Dr Reid documented in this encounter Plan of Treatment Not on file documented as of this encounter Visit Diagnoses Not on filedocumented in this encounter Care Teams Tester Food Products Relationship Specialty Start Date End Date Bobby Das MD [address] [place] [address] [place] [address] PCP - General 10/02/10 documented as of this encounter
--- OUTSIDE RECORDS SUMMARY | 2024-09-30 17:02 | XMS_ITS | Encounter Summary ---
Author Organization [facility] [place] [address] Care Team Providers Care Frame Stripper Name Role Phone Bobby Das MD Primary Care Provider [phone] Encounter Details Date Type Department Care Team (Late st Contact Info) Description 07/01/2022 Telephone Dermatology at [facility] [address] [place] [phone] Zainab Sommer I, [facility] Social History Tobacco Use Types Packs/Day [...] filedocumented in this encounter Care Teams Frame Stripper Relationship Specialty Start Date End Date Bobby Das MD [address] [place] [address] [place] [address] PCP - General 10/02/10 documented as of this encounter
--- OUTSIDE RECORDS SUMMARY | 2024-09-30 17:02 | XMS_ITS | Encounter Summary ---
Author Organization [facility] [place] [address] Care Team Providers Care Office Admin Name Role Phone Bobby Das MD Primary Care Provider [phone] Encounter Details Date Type Department Care Team [...] filedocumented in this encounter Care Teams Office Admin Relationship Specialty Start Date End Date Bobby Das MD [address] [place] [address] [place] [address] PCP - General 10/02/10 documented as of this encounter
--- OUTSIDE RECORDS SUMMARY | 2024-09-30 17:02 | XMS_ITS | Encounter Summary ---
Author Organization [facility] Address [facility] [place] [address] Care Team Providers Care Conditioning Room Worker Name Role Phone Bobby Das MD Primary Care Provider [phone] Encounter Details Date Type Department Care Team (Late st Contact Info) Description 06/24/2022 Telephone [place] [address] Alan August MD [facility] DR GASTROENTER[place] [address] Social History Tobacco Use Types Packs/Day Years [...] data. I was contacted again today by [facility] who was requesting here and back endoscopic [...] and no diverticulosis. This was done at [facility]. HgB 8.6 today. There has [...] on filedocumented in this encounter Care Teams Conditioning Room Worker Relationship Specialty Start Date End Date Bobby Das MD [address] [place] [address] [place] [phone] PCP - General 10/02/10 documented as of this encounter
--- OUTSIDE RECORDS SUMMARY | 2024-09-30 17:02 | XMS_ITS | Encounter Summary ---
Author Organization [facility] Address [facility] [place] [address] Care Team Providers Care Family Court Registrar Name Role Phone Bobby Das MD Primary Care Provider [phone] Encounter Details Date Type Department Care Team (Late st Contact Info) Description 10/02/2022 Notes Only Dermatology at [facility] [address] [place] [address] Abdirashid Jiang MD [facility] DR J[place] [address] Social History Tobacco Use Types Packs/Day Years [...] - 10/02/2022 7:37 PM EST Patient paged online content developer line regarding bleeding from wound site. On [...] filedocumented in this encounter Care Teams Family Court Registrar Relationship Specialty Start Date End Date Bobby Das MD [address] [place] [address] [place] [address] PCP - General 10/02/10 documented as of this encounter
--- OUTSIDE RECORDS SUMMARY | 2024-09-30 17:02 | XMS_ITS | Encounter Summary ---
Author Organization [facility] [place] [address] Care Team Providers Care Cafe Lead Name Role Phone Bobby Das MD Primary Care Provider Encounter Details Date Type Department Care Team (Late st Contact Info) Description 06/23/2022 Telephone [place] [address] Alan August MD [facility] [place] [address] Social History Tobacco Use Types Packs/Day Years [...] included. DIVISION OF GASTROENTEROLOGY & HEPATOLOGY TRANSFER [place] CALL Name: Koko Zamora Date: 06/23/2022 Time: 2:27 AM Referring Location: [facility] Referring Provider: Shahram Urena DC [...] on filedocumented in this encounter Care Teams Cafe Lead Relationship Specialty Start Date End Date Bobby Das MD [address] [place] [address] [place] [address] PCP - General 10/02/10 documented as of this encounter
--- OUTSIDE RECORDS SUMMARY | 2024-09-30 17:02 | XMS_ITS | Encounter Summary ---
Author Organization [facility] Address [facility] [place] [address] Care Team Providers Care Supervisor Money Room Name Role Phone Bobby Das MD Primary Care Provider [phone] Encounter Details Date Type Department Care Team (Late st Contact Info) Description 10/16/2022 2:45 PM EST Office Visit Dermatology at [address] [address] Jace Lynn MD [facility] [place] [address] Basal cell carcinoma (BCC) of eyebrow; Basal [...] Basal Cell Carcinoma Site: Right Eyebrow Repair: Glynn Transposition Flap Surgery date: 10/02/2022 Site # [...] nose documented in this encounter Care Teams Supervisor Money Room Relationship Specialty Start Date End Date Bobby Das MD [address] [place] [address] [place] [address] PCP - General 10/02/10 documented as of this encounter
--- OUTSIDE RECORDS SUMMARY | 2024-09-30 17:03 | XMS_ITS | Encounter Summary ---
Author Organization [facility] [place] [address] Care Team Providers Care Matrix Bath Operator Name Role Phone Bobby Das MD Primary Care Provider [phone] Encounter Details Date Type Department Care Team (Late st Contact Info) Description 05/24/2022 Telephone Cardiology at [address] [phone] Kourtney Jimenez, RN Social History Tobacco Use [...] on filedocumented in this encounter Care Teams Matrix Bath Operator Relationship Specialty Start Date End Date Bobby Das MD [address] [place] [address] [place] [phone] PCP - General 10/02/10 documented as of this encounter
--- OUTSIDE RECORDS SUMMARY | 2024-09-30 17:03 | XMS_ITS | Encounter Summary ---
Author Organization [facility] Address [facility] [place] [address] Care Team Providers Care Bottom Finisher Name Role Phone Bobby Das MD Primary Care Provider [phone] Reason for Visit * Reason Comments Skin Lesion * Consultation (Routine) - Closed Specialty Diagnoses / Procedures Referred By Colby quezada Referred To Contact Dermatology Diagnoses Lesion on right eye = hx of skin cancer Procedures Lesion on right eye = hx of skin cancer Bobby Das MD [address] [place] [address] [facility] Dermatology [address] [place] [address] Referral ID Status Reason Start Date Expiration Date Visits Re quested Visits Authorized [id number] Closed 04/22/2022 04/22/2023 1 1 Encounter Details Date Type Department Care Team (Late st Contact Info) Description 06/10/2022 11:00 AM EDT Office Visit Dermatology at [facility] [address] [place] [address] Loretta Cohen MD [facility] [address] [place] [address] Neoplasm of unspecified behavior of [...] nevi N SCC N BCC 2015: right religious, BCC s/p mohs 09/2018: right eyebrow, BCC [...] Patient is referred to the clinic at [facility] for the following: - Lesion on the [...] N/A RTC: Pending pathology []Note routed to paralegal secretary []Recall placed in scheduling system []Appointment scheduled at checkout Scribe attestation: Sidney Higgins and Loretta Gomez CMA performed the documentation for thisencounter in the presence of and acting as a scribe for Noel Burgos MD. I performed the above scribed service and agree with the accuracy of the documentation in this encounter. Reviewed and signed by: Noel Burgos MD Dermatology [facility] * Loretta Cohen MD - 06/10/2022 11:00 AM EDT DERMATOLOGY TELEPHONE NOTE Koko Zamora 06/17/2022 [id number] Reason for call: Discuss biopsy results I [...] PM EDT 06/10/2022 1:20 PM EDT Narrative [facility] - 06/10/2022 1:20 PM EDT Specimen requisition ordered. ??Separate Pathology report to follow Loretta Cohen MD PATHOLOGY/CYTOLOGY O RADHA [facility] [place] [address] * Surgical Pathology Report (06/10/2022 11:43 AM EDT) Final Diagnosis [id number] ? Location: [facility] The signing pathologist has (i) examined the relevant preparation(s) for the specimen(s) and (ii) rendered or confirmed the diagnosis(es). . ?Surgical Pathology DIAGNOSIS Right lateral eyebrow, skin shave biopsy: - ??Basal cell carcinoma, nodular pattern, transected at the peripheral and deep specimen edges Electronically signed by: ?Delroy CARCAMO, PhD, Ian Verified: ??06/12/2022 14:33 ??Dermatopatholog ist Performed at: ??[facility] Dept. of Pathology, [place], [place] SPECIMEN(S) SUBMITTED A - right lateral [...] labeled A1. ??shb 06/12/2022 2:33 PM EDT [facility] SPECIMEN FROM SKIN / Unknown 06/10/2022 11:43 AM EDT 06/10/2022 11:43 AM EDT Loretta Cohen MD PATHOLOGY/CYTOLOGY O RDERABLES [facility] [place] [phone] documented in this encounter Visit Diagnoses Diagnosis Neoplasm of unspecified behavior of bone, soft tissue, and skin documented in this encounter Care Teams Bottom Finisher Relationship Specialty Start Date End Date Bobby Das MD [address] [place] [address] [place] [phone] PCP - General 10/02/10 documented as of this encounter
--- OUTSIDE RECORDS SUMMARY | 2024-09-30 17:03 | XMS_ITS | Encounter Summary ---
[place] [address] Care Team Providers Care Interactive Graphic Designer Name Role Phone Bobby Das MD Primary Care Provider [phone] Reason for Visit * Auth/Cert Specialty Diagnoses / Procedures Referred By Colby t Referred To Contact Diagnoses GIB (gastrointestinal bleeding) [place] [address] [facility] Referral ID Status Reason Start Date Expiration Date Visits Re quested Visits Authorized [id number] 1 1 Encounter Details Date Type Department Care Team (Late st Contact Info) Description 05/31/2022 4:03 PM EDT Anesthesia [place] [address] Elmer Johnson MD [facility] [place] [address] Yogi Dawkins CRNA [facility] [address] Anesthesia Record Procedure Summary Procedure Name Responsible [...] 1300; median cubital vein (antecubital fossa), right; aajb-gmo-[id number] catheter system; 20 gauge; no longer indicated, [...] Procedure Summary Date: 05/31/22 Room / Location: [facility] ENDO 3 / [facility] Anesthesia Start: 1602 Anesthesia Stop: 1656 Procedures: EGD, UPPER GI ENDOSCOPY (N/A Trunk) EGD, W CONTROL OF BLEEDING, ANY METHOD Diagnosis: (melena) Surgeons: Giovani Ponce MD Responsible Provider: Elmer Johnson MD Anesthesia Type: MAC ASA Status: 3 All Anesthesia Providers: Anesthesiologist: Elmer Johnson MD CERTIFIED MORTICIAN: Yogi Dawkins CRNA Vitals Value Taken Time BP 95/62 05/31/22 1720 Temp Pulse Resp 18 05/31/22 1720 SpO2 99 % 05/31/22 1720 Pain Level 0 05/31/22 1720 Patient [facility]: [facility] Level of Consciousness: Awake and [...] IR Biopsy Spine 07/20/2019 Bobby [place] MD [facility] INTERVENTIONL RAD ??? IR VERTEBROPLASTY LUMBAR MULTIPLE LEVELS 07/20/2019 IR Vertebroplasty Lumbar Multiple Levels 07/20/2019 Bobby Marshall MD [facility] INTERVENTIONL RAD ??? IR VERTEBROPLASTY THORACIC SINGLE LEVEL 10/25/2020 IR Vertebroplasty Thoracic Single Level 10/25/2020 Matt Chisholm MD [facility] INTERVENTIONL RAD ??? PRO EMBLC/THRMBC FEMORAL POPLITEAL AORTO-ILIAC ARTERY Left 05/15/2022 EMBOLECTOMY OR THROMBECTOMY, FEMOROPOPLITEAL, AORTOILIAC ARTERY BY LEG INCISION (WRVU 19.48) performed by Fito Summers MD at [facility] MAIN OR ??? PRO UPPER GI ENDOSCOPY, CTRL BLEED 05/31/2022 EGD, W CONTROL OF BLEEDING, ANY METHOD performed by Giovani Ponce MD at [facility] ENDOSCOPY ??? PRO UPPER GI ENDOSCOPY, DIAGNOSTIC N/A 05/31/2022 EGD, UPPER GI ENDOSCOPY performed by Giovani Ponce MD at [facility] ENDOSCOPY Social History Tobacco Use [...] risks discussed with patient. Plan discussed with CERTIFIED MORTICIAN. Anesthesia Screening documented in this encounter Plan [...] mg documented in this encounter Care Teams Interactive Graphic Designer Relationship Specialty Start Date End Date Bobby Das MD [address] [place] [address] [place] [address] PCP - General 10/02/10 documented as of this encounter
--- OUTSIDE RECORDS SUMMARY | 2024-09-30 17:03 | XMS_ITS | Encounter Summary ---
Author Organization [facility] [place] [facility] Address [facility] [place] [address] Care Team Providers Care Emergency Room Nurse Name Role Phone Bobby Das MD Primary Care Provider [phone] Encounter Details Date Type Department Care Team (Late st Contact Info) Description 06/13/2022 8:00 AM EDT Office [place] [address] Fito Summers MD [facility] [place] [address] Limb ischemia Social History Tobacco Use Types [...] s/p repair Overview Note: Surgery done at [facility] in 2000 ??? Hypertriglyceridemia Overview Note: [...] ABIs. Fito Summers MD Vascular Surgery [facility] * Emily Power CMA - 06/13/2022 8:00 [...] disorder documented in this encounter Care Teams Emergency Room Nurse Relationship Specialty Start Date End Date Bobby Das MD [address] [place] [address] [place] [phone] PCP - General 10/02/10 documented as of this encounter
--- OUTSIDE RECORDS SUMMARY | 2024-09-30 17:03 | XMS_ITS | Encounter Summary ---
Author Organization [facility] [place] [address] Care Team Providers Care Dice Spotter Name Role Phone Bobby Das MD Primary Care Provider Encounter Details Date Type Department Care Team (Late st Contact Info) Description 05/28/2022 Telephone [place] [phone] Dominique Bolivar, RN Social History Tobacco Use [...] RN - 05/28/2022 1:20 PM EDT This narrative writer returned phone call due to 's [...] cardiac history and symptoms of lightheadedness, this narrative writer recommended the patient be evaluated. Discussed going to local ED ([facility]) where staff could also phone vascular and/or cardiac at D- for planning. The patient agreed to do this after he has lunch. documented in this encounter Plan of Treatment Not on file documented as of this encounter Visit Diagnoses Not on filedocumented in this encounter Care Teams Dice Spotter Relationship Specialty Start Date End Date Bobby Das MD [address] [place] [address] [place] [phone] PCP - General 10/02/10 documented as of this encounter
--- OUTSIDE RECORDS SUMMARY | 2024-09-30 17:03 | XMS_ITS | Encounter Summary ---
Author Organization [facility] [place] [address] Care Team Providers Care City Dispatch Supervisor Name Role Phone Bobby Das MD Primary Care Provider [phone] Reason for Referral * Diagnostic Test (Routine) - Closed Specialty Diagnoses / Procedures Referred By Contac t Referred To Contact Cardiology Diagnoses Paroxysmal atrial fibrillation Procedures [place] 48 Hrs-15 Days Nasrin Parra PA [facility] [place] [address] [facility] [place] [address] Referral ID Status Reason Start Date Expiration Date V isits Requested Visits Authorized [id number] Closed Specialty Service Requested 05/21/2022 10/21/2022 1 1 Reason for Visit * Auth/Cert Specialty Diagnoses / Procedures Referred By Contac t Referred To Contact Diagnoses Limb ischemia LLE thrombus Fito Summers MD [facility] [place] [address] [facility] Referral ID Status Reason Start Date Expiration Date Visits Re quested Visits Authorized [id number] 1 1 Encounter Details Date Type Department Care Team (Latest Contact Info) Description 05/21/2022 3:30 PM EDT - 05/21/2022 11:59 PM EDT Hospital Encounter Non-Invasive Cardiology [place] [address] Paroxysmal atrial fibrillation Discharge Disposition: [...] End Date fluticasone propionate (FLONASE) 50 mcg/actuation [place], Suspension 1 spray by Each Nare route [...] fibrillation documented in this encounter Care Teams City Dispatch Supervisor Relationship Specialty Start Date End Date Bobby Das MD [address] [place] [address] [place] [address] PCP - General 10/02/10 documented as of this encounter
--- OUTSIDE RECORDS SUMMARY | 2024-09-30 17:03 | XMS_ITS | Encounter Summary ---
Author Organization Formerly [facility] [address] Care Team Providers Care Platform Operations Director Name Role Phone Bobby Das MD Primary Care Provider Reason for Visit * Reason Comments Dizziness * Auth/Cert Specialty Diagnoses / Procedures Referred By Contac t Referred To Contact Diagnoses GIB (gastrointestinal bleeding) [place] [address] [facility] Referral ID Status Reason Start Date Expiration Date Visits Re quested Visits Authorized [id number] 1 1 Encounter Details Date Type Department Care Team (Latest Contact Info) Description 05/31/2022 10:11 AM EDT - 06/02/2022 3:02 PM EDT Hospital Encounter Intermediate [place] [address] Dominique Hinds MD [facility] [place] [address] [place] [address] [place] [address] [place] [address] GIB (gastrointestinal bleeding) (Primary Dx) Discharge Disposition: [...] Valle MD - 06/02/2022 12:48 PM EDT [facility] Medicine - Discharge Summary [...] switching to a differentblood thinner with the project manager/team coach outpatient. Call your doctor or seek medical [...] to a different blood thinner with your project manager/team coach as an outpatient Stopped Medications - Aspirin - Valsartan - Speak with your project manager/team coach about the timing of restarting this Follow-up Appointments Future Appointments Date Time Provider Department Center 06/10/2022 11:00 AM Loretta Cohen MD [facility] 06/13/2022 7:30 AM Edson Lagos [place] [facility] VAS LAB [facility] 06/13/2022 8:00 AM Fito Summers MD [facility] V SURG [facility] 06/13/2022 10:00 AM Alan Reid MD [facility] CARD 4A [facility] Your Inpatient Medical Team at [facility] Name(s) of your inpatient provider(s): Dr. John Ames For questions regarding issues relating to your hospitalization on the Hospital Medicine Service, please contact your inpatient physician through the [facility] Billet Heater [phone]. Issues after hours and on weekends will be handled by the Hospitalist staff on-call. Your Primary Care Provider Bobby Das MD [phone] Future Appointments and Orders Future Appointments and Orders Future Appointments Provider Department Dept Phone 06/10/2022 11:00 AM Loretta Cohen MD [facility] Arrive at: [employer] [address] [place] [address] 06/13/2022 7:30 AM Edson [place]os [place] Vascular Lab at [facility] Arrive at: [employer] Area [phone] 06/13/2022 8:00 AM Fito Summers MD Vascular Surgery at [facility] Arrive at: [employer] Area 3V [phone] 06/13/2022 10:00 AM Alan Reid MD Cardiology at [facility] Arrive at: [employer] Area 4A [phone] For questions regarding this document or issues relating to this hospitalization on the Medical Service, please contact your inpatient physician through the [facility] [employer] . Issues afterhours and on weekends will [...] switching to a differentblood thinner with the project manager/team coach outpatient. Call your doctor or seek medical [...] to a different blood thinner with your project manager/team coach as an outpatient Stopped Medications - Aspirin - Valsartan - Speak with your project manager/team coach about the timing of restarting this Follow-up Appointments Future Appointments Date Time Provider Department Center 06/10/2022 11:00 AM Loretta Cohen MD [facility] 06/13/2022 7:30 AM Edson [place]os [place] [facility] VAS LAB [facility]DA [place] 06/13/2022 8:00 AM Fito Summers MD [facility] V SURG [facility] 06/13/2022 10:00 AM Alan Reid MD [facility] CARD 4A [facility] Your Inpatient Medical Team at [facility] Name(s) of your inpatient provider(s): Dr. John Ames For questions regarding issues relating to your hospitalization on the Hospital Medicine Service, please contact your inpatient physician through the [facility] Billet Heater [phone]. Issues after hours and on weekends will be handled by the Hospitalist staff on-call. Your Primary Care Provider Bobby Das MD [phone] documented in this encounter Medications at Time of Discharge Medication Sig Dispensed Refills Start Date End Date fluticasone propionate (FLONASE) 50 mcg/actuation Geddes, Suspension 1 spray by Each Nare route [...] spent >30 minutes (Day of Discharge Code 56568) involved in the final examination of the [...] were not included. Hospital Medicine Progress Note [place] Team - Pager #[phone] Admit Date: 05/31/2022 Name: Koko Zamora : [...] cardiology to discuss antiplatelet (ISO bleed and jail), following. ?? #CAD s/p stenting recently #HFrEF [...] Kurt Ames MD Internal Medicine, PGY-1 Medicine [place] Team #[id number] Associated attestation - John Jolley MD - [...] of two midnights or is on the [facility] inpatient only procedure list (status C) due to: GI Bleeding documented in this encounter H&P Notes * Yamilet Victor MD - 05/31/2022 4:33 PM EDT Images from the original note were not included. [facility] Medicine (#[id number]) History and Physical Patient info: Name: Koko Zamora : 1940 PCP: Bobby Das MD PCP phone number: [phone] Date of Admission: 05/31/2022 ( Hospital Day [...] IR Biopsy Spine 07/20/2019 Bobby Marshall MD [facility] INTERVENTIONL RAD ??? IR VERTEBROPLASTY LUMBAR MULTIPLE LEVELS 07/20/2019 IR Vertebroplasty Lumbar Multiple Levels 07/20/2019 Bobby Marshall MD [facility] INTERVENTIONL RAD ??? IR VERTEBROPLASTY THORACIC SINGLE LEVEL 10/25/2020 IR Vertebroplasty Thoracic Single Level 10/25/2020 Matt Chisholm MD [facility] INTERVENTIONL RAD ??? PRO EMBLC/THRMBC FEMORAL POPLITEAL AORTO-ILIAC ARTERY Left 05/15/2022 EMBOLECTOMY OR THROMBECTOMY, FEMOROPOPLITEAL, AORTOILIAC ARTERY BY LEG INCISION (WRVU 19.48) performed by Fito Summers MD at [facility] MAIN OR No family history [...] 11 ??? fluticasone propionate (FLONASE) 50 mcg/actuation Geddes, Suspension as needed. ??? fluorouraciL (EFUDEX) 5 [...] Gas) No results found for: PHART, PO2ART, ARM3EZH, [id number] Microbiology: N/A Pertinent radiology/diagnostic studies: Recent prior [...] Status: Full Arpita Valle MD, PGY-3 05/31/2022 [facility] Medicine # [id number] Attending Staff Admission Documentation I have examined [...] AM EDT Pt brought to XR by pattern grader cutter * Brittany Ramirez MD - 05/31/2022 10:40 [...] have questions please contact the health director of health care marketing that requested your imaging first. Chest PA [...] have questions please contact the health director of health care marketing that requested your imaging first. Course as [...] from [place]. Brittany Ramirez MD Resident 05/31/22 [id number] Associated attestation - Dominique Hinds MD - [...] soft blood pressures, MD made aware. [facility] INTER[facility]IEWS INTERN. 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 Patient reported blurry/hazy [...] Heparin gtt - plan to bridge to [facility] Discharge planning Increase [...] the original note were not included. Formerly [facility] [place] [phone] INPATIENT CARDIOLOGY CONSULT NOTE Date of Consultation: 06/01/2022 Admit Date: 05/31/2022 Place of Service: IS86/IS86-A Referring Attending: DOMINIQUE HINDS COLEMAN W FRIEDMAN, HARLEY P Responsible Senior Director Finance: Dr. Rizo Hospital Day 1 day Reason [...] LCX and LCx stent) who presented to [facility] on 05/31/2022 for GI bleed. Patient presented [...] IR Biopsy Spine 07/20/2019 Bobby Marshall MD [facility] INTERVENTIONL RAD ??? IR VERTEBROPLASTY LUMBAR MULTIPLE LEVELS 07/20/2019 IR Vertebroplasty Lumbar Multiple Levels 07/20/2019 Bobby Marshall MD [facility] INTERVENTIONL RAD ??? IR VERTEBROPLASTY THORACIC SINGLE LEVEL 10/25/2020 IR Vertebroplasty Thoracic Single Level 10/25/2020 Matt Chisholm MD [facility] INTERVENTIONL RAD ??? PRO EMBLC/THRMBC FEMORAL POPLITEAL AORTO-ILIAC ARTERY Left 05/15/2022 EMBOLECTOMY OR THROMBECTOMY, FEMOROPOPLITEAL, AORTOILIAC ARTERY BY LEG INCISION (WRVU 19.48) performed by Fito Summers MD at [facility] MAIN OR ALLERGIES: Allergies Allergen [...] time ??? fluticasone propionate (FLONASE) 50 mcg/actuation Geddes, Suspension 1 spray by Each Nare route [...] from 05/31/2022 in Intermediate Special [facility] Unit [facility] ED to Hosp-Admission (Discharged) from 05/15/2022 in Intermediate Cardiac Care Unit [facility] Weight 77.1 kg (170 lb) 1 [...] Neurology: Without focal deficit ECG: Echocardiogram: 05/16/2022 [facility] 05/20/2022 Coronary Angiography: Dominance: Right Left [...] guiding catheter and a 3.[address] [facility] [place] [address] 20 Mhz. Imaging was successful. Image [...] A premounted 2.75 x 30 mm [employer] (AMPARO) was deployed with a maximum inflation [...] may require modification of this regimen. Consult [facility] Interventional Cardiology for questions. The 1 year [...] Hb drop. Unknown source. has had a [facility] with stent placed and revascularization of [...] have questions please contact the health director of health care marketing that requested your imaging first. [employer] 48 [...] have questions please contact the health director of health care marketing that requested your imaging first. Recent Labs [...] on xarelto, ischemic systolic heart failure (recent [facility] 05/20/2022 with 2V disease OM1 and distal RCA, had ostial LCX and LCx stent), recent admission for acute limb ischemia LLE, where he had left common femoral transverse arteriotomy and primary repair, thromboembolectomy of the SFA, profunda and common femoral artery with 4 compartment fasciotomies, who presented to [facility] on 05/31/2022 for GI bleed. Cardiology consulted [...] attestation for additional insight. Rossy Anaya MD [facility] Security Operations Center Analyst, PGY-5 Inpatient Cardiology Consults Pager #[phone] Please check [employer]enda for on-call cardiology consults [...] A&Ox 4. On room air. VSS. [facility]: CAMPUS INTERVIEWS INTERN. Adequate urine output, urinal at bedside, flomax [...] 180 days) Any patient receiving care in [place] must abide by [place] law. The hierarchy [...] (i) The agent with financial power of pattern hand or a conservator appointed in accordance with [...] walker - rolling Home Address confirmed as: [address] [place] [id number] Social & Family Supports: All names listed below confirmed with patient as current and correct Extended Emergency Contact Information Primary Emergency Contact: Ursula Zamora Address: [address] [place] [id number] [facility] Relation: Spouse Current [...] Type: *No Product type* / Secondary Insurance: [facility] Secondary Insurance? (Only Medicare A&B): Yes ; Prescription Coverage: Yes Preferred Pharmacy: [id number] [address] Status: Patient is a : No Primary Care Provider: Bobby Das MD [phone] Patient/Caregiver Goals of Treatment: Patient plans to [...] with transition of care planning. ASH [place] Chemistry Lecturer [facility] Medicine/ Medical Specialties Pager- [...] EVALUATION: * Consult Note - Lonnie Good, [facility] - 05/31/2022 9:42 PM EDT TelePharmacy Home [...] Operative Note Patient Name: Koko Zamora : [id number] MR#: [id number] Case Date: 05/31/2022 Surgeon: Surgeon(s) and Role: [...] IR Biopsy Spine 07/20/2019 Bobby Marshall MD [facility] INTERVENTIONL RAD ??? IR VERTEBROPLASTY LUMBAR MULTIPLE LEVELS 07/20/2019 IR Vertebroplasty Lumbar Multiple Levels 07/20/2019 Bobby Marshall MD [facility] INTERVENTIONL RAD ??? IR VERTEBROPLASTY THORACIC SINGLE LEVEL 10/25/2020 IR Vertebroplasty Thoracic Single Level 10/25/2020 Matt Chisholm MD [facility] INTERVENTIONL RAD ??? PRO EMBLC/THRMBC FEMORAL POPLITEAL AORTO-ILIAC ARTERY Left 05/15/2022 EMBOLECTOMY OR THROMBECTOMY, FEMOROPOPLITEAL, AORTOILIAC ARTERY BY LEG INCISION (WRVU 19.48) performed by Fito Summers MD at [facility] MAIN OR SOCIAL HX: Social [...] sounds, tympanic to percussion RECTAL: performed with electric motor repairman present, no overt masses, fissures, external hemorrhoids, [...] have questions please contact the health director of health care marketing that requested your imaging first. Abdomen & [...] PM EDT Upper Gi Endoscopy, Ctrl Bleed ([id number]) 05/31/2022 4:05 PM EDT melena Upper GI Endoscopy, Diagnostic ([id number]) 05/31/2022 4:05 PM EDT melena UPPER GI [...] Absolute 4.44 1.70 - 6.10 x10(3)/mc L [facility] Lymph % 25.2 % [facility] Lymphocytes Abs 1.8 0.9 - 3.2 x10(3)/mc L [facility] Monocyte % 10.0 % [facility] Monocyte Abs 0.7 0.3 - 0.9 x10(3)/ L [facility] Eos % 2.1 % [facility] Eosinophils Abs 0.2 0.0 - 0.4 x10(3)/ L [facility] Basophil % 0.7 % [facility] Baso Absolute 0.0 0.0 - 0.1 x10(3)/mc L [facility] Immature Gran % 0.70 % [facility] Comment: Immature granulocytes(IG's)percentage and absolute count will include metamyelocytes, myelocytes, and promyelocytes. Blood smears from CBCs yielding IG's will be scanned manually for concordance. If this scan disagrees with the automated IG or if promyelocytes are noted, a manual differential will be performed. Immature Gran Absolute 0.05(H) 0.00 - 0.04 x10(3)/mc L [facility] Blood 06/02/2022 8:20 AM EDT 06/02/2022 8:25 AM EDT Narrative Resulting Agency Comment Spec In Lab Kurt Ames MD HEMATOLOGY ORDERABL ES [facility] [place] [address] * (ABNORMAL) Hemogram (06/02/2022 8:20 AM EDT) White Blood Cell 7.2 4.0 - 9.5 x10(3)/[facility] Red Blood Cell 2.74(L) 4.58 - 5.54 x10(6)/ L [facility] Hemoglobin 8.7(L) 13.7 - 16.5 g/dL [facility] Hematocrit 25.7(L) 40.5 - 48.5 % [facility] Mean Cell Volume 93.8(H) 82.9 - 93.1 fL [facility] Mean Cell Hemoglobin 31.8 27.5 - 32.1 pg [facility] Mean Cell Hemoglobin Concentration 33.9 32.0 - 35.7 g/dL [facility] Platelet 260 145 - 357 x10(3)/[facility] RDW Standard Deviation 51.0(H) 36.0 - 45.0 [facility] RDW coefficient of variation 14.9(H) 11.4 - 13.8 % [facility] Mean Platelet Volume 10.0 7.6 - 12.9 [facility] NRBC% auto 0.0 % [facility] NRBC Absolute 0.000 0.000 - 0.000 x10(3)/[facility] Blood 06/02/2022 8:20 AM EDT 06/02/2022 8:25 AM EDT Narrative Resulting Agency Comment Spec In Lab Kurt Ames MD HEMATOLOGY ORDERABL ES [facility] [place] [address] * Heparin (unfractionated) Level (06/02/2022 6:30 AM [...] MD HEMATOLOGY ORDERAB LES Performing Organization Address [facility] Co de Phone Number [facility] [place] [address] * Heparin (unfractionated) Level (06/02/2022 12:30 AM EDT) UF Heparin 0.81 IU/mL [facility] Comment: Heparin (anti-Xa) levels [...] Lab Yamilet Victor MD HEMATOLOGY ORDERAB LES [facility] [place] [address] * Magnesium (06/02/2022 12:30 AM EDT) Magnesium 0.83 0.69 - 1.07 mmol/L [facility] Blood 06/02/2022 12:3 0 AM EDT 06/02/2022 12:40 AM EDT Narrative Resulting Agency Comment Spec In Lab Yamilet Victor MD CHEMISTRY ORDERABL ES [facility] [place] [address] * (ABNORMAL) Basic Metabolic Panel (non-fasting) (06/02/2022 12:30 AM EDT) Glucose 151 65 - 199 mg/dL [facility] Comment:Diabetes: >=200 mg/d L plus symptoms Blood Urea Nitrogen 12 10 - 20 mg/dL [facility] Creatinine 0.71(L) 0.80 - 1.50 mg/dL [facility] [...] questions. Chloride 108(H) 98 - 107 mmol/L [facility] Carbon Dioxide 24 22 - 31 mmol/L [facility] Anion Gap 10 5 - 15 mmol/L [facility] Calcium 8.1(L) 8.5 - 10.5 mg/dL [facility] Est Glomerular Filtration Rate 93 >=60 mL/min/1. 73 m?? [facility] Comment: This [...] Lab Yamilet Victor MD CHEMISTRY ORDERABL ES [facility] [place] [address] * (ABNORMAL) Differential, Automated (06/01/2022 7:29 PM EDT) Neutrophil % 68.8 % [facility] Neutrophil Absolute 5.34 1.70 - 6.10 x10(3)/mc L [facility] Lymph % 19.6 % [facility] Lymphocytes Abs 1.5 0.9 - 3.2 x10(3)/mc L [facility] Monocyte % 8.1 % [facility] Monocyte Abs 0.6 0.3 - 0.9 x10(3)/mc L [facility] Eos % 1.8 % [facility] Eosinophils Abs 0.1 0.0 - 0.4 x10(3)/mc L [facility] Basophil % 0.8 % [facility] Baso Absolute 0.1 0.0 - 0.1 x10(3)/mc L [facility] Immature Gran % 0.90 % [facility] Comment: Immature granulocytes(IG's)percentage and absolute count will include metamyelocytes, myelocytes, and promyelocytes. Blood smears from CBCs yielding IG's will be scanned manually for concordance. If this scan disagrees with the automated IG or if promyelocytes are noted, a manual differential will be performed. Immature Gran Absolute 0.07(H) 0.00 - 0.04 x10(3)/mc L [facility] Blood 06/01/2022 7:29 PM EDT 06/01/2022 7:29 PM EDT Narrative Resulting Agency Comment Spec In Lab Kurt Ames MD HEMATOLOGY ORDERABL ES [facility] [place] [address] * (ABNORMAL) Hemogram (06/01/2022 7:29 PM EDT) White Blood Cell 7.8 4.0 - 9.5 x10(3)/mc L [facility] Red Blood Cell 2.65(L) 4.58 - 5.54 x10(6)/[facility] Hemoglobin 8.3(L) 13.7 - 16.5 g/dL [facility] Hematocrit 24.8(L) 40.5 - 48.5 % [facility] Mean Cell Volume 93.6(H) 82.9 - 93.1 [facility] Mean Cell Hemoglobin 31.3 27.5 - 32.1 pg [facility] Mean Cell Hemoglobin Concentration 33.5 32.0 - 35.7 g/dL [facility] Platelet 263 145 - 357 x10(3)/mc L [facility] RDW Standard Deviation 52.8(H) 36.0 - 45.0 fL [facility] RDW coefficient of variation 15.4(H) 11.4 - 13.8 % [facility] Mean Platelet Volume 10.4 7.6 - 12.9 [facility] NRBC% auto 0.0 % [facility] NRBC Absolute 0.000 0.000 - 0.000 x10(3)/ L [facility] Blood 06/01/2022 7:29 PM EDT 06/01/2022 7:29 PM EDT Narrative Resulting Agency Comment Spec In Lab Kurt Ames MD HEMATOLOGY ORDERABL ES Performing Organization Address [facility] Co de Phone Number [facility] [place] [address] * Heparin (unfractionated) Level (06/01/2022 7:29 PM EDT) UF Heparin 0.81 IU/mL [facility] Comment: Heparin (anti-Xa) levels [...] MD HEMATOLOGY ORDERAB LES Performing Organization Address [facility]/ZIP Co de Phone Number [facility] [place] [address] * (ABNORMAL) Heparin (unfractionated) Level (06/01/2022 11:32 AM EDT) UF Heparin 1.05(Crit ical) IU/mL [facility] Comment: Critical Result called [...] Lab Yamilet Victor MD HEMATOLOGY ORDERAB LES [facility] [place] [address] * (ABNORMAL) Differential, Automated (06/01/2022 5:56 AM EDT) Neutrophil % 62.7 % [facility] Neutrophil Absolute 6.11(H) 1.70 - 6.10 x10(3)/mc L [facility] Lymph % 23.5 % [facility] Lymphocytes Abs 2.3 0.9 - 3.2 x10(3)/mc L [facility] Monocyte % 10.0 % [facility] Monocyte Abs 1.0(H) 0.3 - 0.9 x10(3)/mc L [facility] Eos % 2.2 % [facility] Eosinophils Abs 0.2 0.0 - 0.4 x10(3)/mc L [facility] Basophil % 0.9 % [facility] Baso Absolute 0.1 0.0 - 0.1 x10(3)/mc L [facility] Immature Gran % 0.70 % [facility] Comment: Immature granulocytes(IG's)percentage and absolute count will include metamyelocytes, myelocytes, and promyelocytes. Blood smears from CBCs yielding IG's will be scanned manually for concordance. If this scan disagrees with the automated IG or if promyelocytes are noted, a manual differential will be performed. Immature Gran Absolute 0.07(H) 0.00 - 0.04 x10(3)/mc L [facility] Blood 06/01/2022 5:56 AM EDT 06/01/2022 6:05 AM EDT Narrative Resulting Agency Comment Spec In Lab Arpita Valle MD HEMATOLOGY ORDERABLE S [facility] [place] [address] * (ABNORMAL) Hemogram (06/01/2022 5:56 AM EDT) White Blood Cell 9.7(H) 4.0 - 9.5 x10(3)/mc L [facility] Red Blood Cell 2.83(L) 4.58 - 5.54 x10(6)/mc L [facility] Hemoglobin 9.0(L) 13.7 - 16.5 g/dL [facility] Hematocrit 26.7(L) 40.5 - 48.5 % [facility] Mean Cell Volume 94.3(H) 82.9 - 93.1 fL [facility] Mean Cell Hemoglobin 31.8 27.5 - 32.1 pg [facility] Mean Cell Hemoglobin Concentration 33.7 32.0 - 35.7 g/dL [facility] Platelet 250 145 - 357 x10(3)/mc L [facility] RDW Standard Deviation 54.3(H) 36.0 - 45.0 fL [facility] RDW coefficient of variation 15.9(H) 11.4 - 13.8 % [facility] Mean Platelet Volume 10.5 7.6 - 12.9 fL [facility] NRBC% auto 0.0 % [facility] NRBC Absolute 0.000 0.000 - 0.000 x10(3)/mc L [facility] Blood 06/01/2022 5:56 AM EDT 06/01/2022 6:05 AM EDT Narrative Resulting Agency Comment Spec In Lab Arpita Valle MD HEMATOLOGY ORDERABLE S Performing Organization Address [facility] Co de Phone Number [facility] [place] [address] * Heparin (unfractionated) Level (06/01/2022 4:30 AM EDT) UF Heparin 0.68 IU/mL [facility] Comment: Heparin (anti-Xa) levels [...] MD HEMATOLOGY ORDERAB LES Performing Organization Address [facility]/ZIP Co de Phone Number [facility] [place] [address] * (ABNORMAL) Urinalysis with reflex Culture (06/01/2022 4:00 AM EDT) Glucose, Urine Dipstick 500(Critical ) Negative mg/dL [facility] Comment: Urinalysis result NOT critical without a combination of Glucose greater than or equal to 500 mg/dL AND Ketones greater than or equal to 80 mg/dL Protein, Urine Dipstick Negative Negative mg/dL [facility] Bilirubin, Urine Dipstick Negative Negative mg/dL [facility] Comment: Clinical correlation required for positive Urine Bilirubin results as false positive may occur with some drugs and drug related products. If a false positive is suspected a serum total bilirubin should be considered if clinically indicated. Urobilinogen, Urine Dipstick Normal Normal mg/dL [facility] pH, Urn (dipstick) 6.0 5.0 - 8.0 [facility] Blood, Urine Dipstick Negative Negative mg/dL [facility] Ketone, Urine Dipstick Negative Negative mg/dL [facility] Nitrite, Urine Dipstick Negative Negative [facility] Leukocytes, Urine Dipstick Negative Negative [facility] Appearance, Urine Dipstick Clear Clear [facility] Specific [place] Urine Automated >=1.030(A) 1.005 - 1.030 [facility] Color, Urine Dipstick Yellow Yellow [facility] Reflex to Culture No [facility] Clean Catch Urine 06/01/2022 4:00 AM EDT 06/01/2022 4:26 AM EDT Narrative Resulting Agency Comment Spec In Lab Yamilet Victor MD URINE ORDERABLES Performing Organization Address City/[facility] Co de Phone Number [facility] [place] [address] * Magnesium (06/01/2022 1:00 AM EDT) Magnesium 0.93 0.69 - 1.07 mmol/L [facility] Blood 06/01/2022 1:00 AM EDT 06/01/2022 1:37 AM EDT Narrative Resulting Agency Comment Spec In Lab Yamilet Victor MD CHEMISTRY ORDERABL ES Performing Organization Address City/[facility] Co de Phone Number [facility] [place] [address] * (ABNORMAL) Basic Metabolic Panel (non-fasting) (06/01/2022 1:00 AM EDT) Glucose 148 65 - 199 mg/dL [facility] Comment:Diabetes: >=200 mg/d L plus symptoms Blood Urea Nitrogen 23(H) 10 - 20 mg/dL [facility] Creatinine 0.78(L) 0.80 - 1.50 mg/dL [facility] [...] questions. Chloride 108(H) 98 - 107 mmol/L [facility] Carbon Dioxide 24 22 - 31 mmol/L [facility] Anion Gap 9 5 - 15 mmol/L [facility] Calcium 8.6 8.5 - 10.5 mg/dL [facility] Est Glomerular Filtration Rate 91 >=60 mL/min/1. 73 m?? [facility] Comment: This [...] MD CHEMISTRY ORDERABL ES Performing Organization Address [facility]/ZIP Co de Phone Number [facility] [place] [address] * (ABNORMAL) Differential, Automated (06/01/2022 12:00 AM EDT) Neutrophil % 64.6 % [facility] Neutrophil Absolute 5.60 1.70 - 6.10 x10(3)/mc L [facility] Lymph % 22.4 % [facility] Lymphocytes Abs 1.9 0.9 - 3.2 x10(3)/mc L [facility] Monocyte % 9.5 % [facility] Monocyte Abs 0.8 0.3 - 0.9 x10(3)/mc L [facility] Eos % 2.1 % [facility] Eosinophils Abs 0.2 0.0 - 0.4 x10(3)/mc L [facility] Basophil % 0.6 % [facility] Baso Absolute 0.0 0.0 - 0.1 x10(3)/mc L [facility] Immature Gran % 0.80 % [facility] Comment: Immature granulocytes(IG's)percentage and absolute count will include metamyelocytes, myelocytes, and promyelocytes. Blood smears from CBCs yielding IG's will be scanned manually for concordance. If this scan disagrees with the automated IG or if promyelocytes are noted, a manual differential will be performed. Immature Gran Absolute 0.07(H) 0.00 - 0.04 x10(3)/mc L [facility] Blood 06/01/2022 06/01/2022 12: 10 AM EDT Narrative Resulting Agency Comment Spec In Lab Arpita Valle MD HEMATOLOGY ORDERABLE S Performing Organization Address City/[facility]/ZIP Co de Phone Number [facility] [place] [address] * (ABNORMAL) Hemogram (06/01/2022 12:00 AM EDT) Pathologist [facility] White Blood Cell 8.7 4.0 - 9.5 x10(3)/mc L [facility] Red Blood Cell 2.77(L) 4.58 - 5.54 x10(6)/mc L [facility] Hemoglobin 8.6(L) 13.7 - 16.5 g/dL [facility] Hematocrit 25.7(L) 40.5 - 48.5 % [facility] Mean Cell Volume 92.8 82.9 - 93.1 fL [facility] Mean Cell Hemoglobin 31.0 27.5 - 32.1 pg [facility] Mean Cell Hemoglobin Concentration 33.5 32.0 - 35.7 g/dL [facility] Platelet 260 145 - 357 x10(3)/ L [facility] RDW Standard Deviation 51.9(H) 36.0 - 45.0 [facility] RDW coefficient of variation 15.5(H) 11.4 - 13.8 % [facility] Mean Platelet Volume 10.4 7.6 - 12.9 fL [facility] NRBC% auto 0.0 % [facility] NRBC Absolute 0.000 0.000 - 0.000 x10(3)/ L [facility] Blood 06/01/2022 06/01/2022 12: 10 AM EDT Narrative Resulting Agency Comment Spec In Lab Arpita Valle MD HEMATOLOGY ORDERABLE S [facility] [place] [address] * (ABNORMAL) Differential, Automated (05/31/2022 9:17 PM EDT) Pathologist [facility] Neutrophil % 59.6 % [facility] Neutrophil Absolute 3.98 1.70 - 6.10 x10(3)/ L [facility] Lymph % 27.5 % [facility] Lymphocytes Abs 1.8 0.9 - 3.2 x10(3)/ L [facility] Monocyte % 9.1 % [facility] Monocyte Abs 0.6 0.3 - 0.9 x10(3)/[facility] Eos % 2.4 % [facility] Eosinophils Abs 0.2 0.0 - 0.4 x10(3)/[facility] Basophil % 0.7 % [facility] Baso Absolute 0.0 0.0 - 0.1 x10(3)/[facility] Immature Gran % 0.70 % [facility] Comment: Immature granulocytes(IG's)percentage and absolute count will include metamyelocytes, myelocytes, and promyelocytes. Blood smears from CBCs yielding IG's will be scanned manually for concordance. If this scan disagrees with the automated IG or if promyelocytes are noted, a manual differential will be performed. Immature Gran Absolute 0.05(H) 0.00 - 0.04 x10(3)/[facility] Blood 05/31/2022 9:17 PM EDT 05/31/2022 9:25 PM EDT Narrative Resulting Agency Comment Spec In Lab Arpita Valle MD HEMATOLOGY ORDERABLE S [facility] [place] [address] * (ABNORMAL) Hemogram (05/31/2022 9:17 PM EDT) White Blood Cell 6.7 4.0 - 9.5 x10(3)/[facility] Red Blood Cell 2.74(L) 4.58 - 5.54 x10(6)/ L [facility] Hemoglobin 8.5(L) 13.7 - 16.5 g/dL [facility] Hematocrit 25.7(L) 40.5 - 48.5 % [facility] Mean Cell Volume 93.8(H) 82.9 - 93.1 fL [facility] Mean Cell Hemoglobin 31.0 27.5 - 32.1 pg [facility] Mean Cell Hemoglobin Concentration 33.1 32.0 - 35.7 g/dL [facility] Platelet 233 145 - 357 x10(3)/mc L [facility] RDW Standard Deviation 51.9(H) 36.0 - 45.0 [facility] RDW coefficient of variation 15.3(H) 11.4 - 13.8 % [facility] Mean Platelet Volume 10.3 7.6 - 12.9 [facility] NRBC% auto 0.0 % [facility] NRBC Absolute 0.000 0.000 - 0.000 x10(3)/mc L [facility] Blood 05/31/2022 9:17 PM EDT 05/31/2022 9:25 PM EDT Narrative Resulting Agency Comment Spec In Lab Arpita Valle MD HEMATOLOGY ORDERABLE S [facility] [place] [address] * Transfuse RBC (05/31/2022 7:36 PM EDT) [...] 1940 ? Age: 81 ? Order #: [id number] ? Instrument Name: [id number] ? ___ Procedure: ? Upper GI endoscopy Indications: ? Melena, Suspected upper ? gastrointestinal bleeding Providers: ? Torrey Munoz, ? Vani Wei RN, Juhi Fajardo, ? Alannah Hutchinson, Retail Maintenance Technician Referring MD: ?Dominique Hinds Medicines: ? Propofol [...] Procedure Code(s): ? --- Professional --- ? 38819, Esophagogastroduode noscopy, ? flexible, transoral; with control [...] stomach ? and duodenum CPT copyright 2021 [employer]. All rights reserved. The codes documented in this report are preliminary and upon expressive music therapist review may be revised to meet current [...] have questions please contact the health director of health care marketing that requested your imaging first. ? Narrative 05/31/2022 2:39 PM EDT EXAMINATION: CT ABDOMEN AND PELVIS WWO CONTRAST (GI BLEED) CLINICAL HISTORY: Significant Hb drop. Unknown source. has had a [facility] with stent placed and revascularization of [...] patients who have questions please contactthe health director of health care marketing that requested your imaging first. Dominique Hinds MD IMG CT ORDERABLES * Type and Screen Validity (05/31/2022 1:43 PM EDT) T&S only valid at [facility] Comment:This Type and Screen result is only valid at the [facility] Blood 05/31/2022 1:43 PM EDT 05/31/2022 1:57 PM EDT Narrative Resulting Agency Comment Spec In Lab Dominique Hinds MD BLOOD BANK LAB ORDER NICK [facility] [place] [address] * ABORH Recheck Status (05/31/2022 1:43 PM EDT) ABORH Type Recheck Completed [facility] Blood 05/31/2022 1:43 PM EDT 05/31/2022 1:57 PM EDT Narrative Resulting Agency Comment Spec In Lab Dominique Hinds MD BLOOD BANK LAB ORDER NICK [facility] [place] [address] * Antibody screen (05/31/2022 1:43 PM EDT) Ab Screen Interp Negative [facility] Expires at [id number] on: 06/03/2022 [facility] Blood 05/31/2022 1:43 PM EDT 05/31/2022 1:57 PM EDT Narrative Resulting Agency Comment Spec In Lab Dominique Hinds MD BLOOD BANK LAB ORDER NICK [facility] [place] [address] * ABO/Rh Typing (05/31/2022 1:43 PM EDT) ABORH Type O Pos [facility] Blood 05/31/2022 1:43 PM EDT 05/31/2022 1:57 PM EDT Narrative Resulting Agency Comment Spec In Lab Dominique Hinds MD BLOOD BANK LAB ORDER NICK [facility] [place] [address] * Prepare RBC (05/31/2022 1:35 PM EDT) Dispensed? Yes [facility] Blood 05/31/2022 1:35 PM EDT 05/31/2022 1:30 PM EDT Dominique Hinds MD BLOOD BANK PRODUCT O RDERABLES [facility] [place] [address] * Prepare RBC (05/31/2022 1:25 PM EDT) Dispensed? Yes [facility] Blood 05/31/2022 1:25 PM EDT 05/31/2022 1:23 PM EDT Dominique Hinds MD BLOOD BANK PRODUCT O RDERABLES Performing Organization Address City/[facility]/ZIP Co de Phone Number [facility] [place] [address] * (ABNORMAL) Differential, Automated (05/31/2022 12:44 PM EDT) Neutrophil % 62.0 % [facility] Neutrophil Absolute 4.71 1.70 - 6.10 x10(3)/mc L [facility] Lymph % 24.1 % [facility] Lymphocytes Abs 1.8 0.9 - 3.2 x10(3)/mc L [facility] Monocyte % 10.8 % [facility] Monocyte Abs 0.8 0.3 - 0.9 x10(3)/mc L [facility] Eos % 1.6 % [facility] Eosinophils Abs 0.1 0.0 - 0.4 x10(3)/mc L [facility] Basophil % 0.7 % [facility] Baso Absolute 0.0 0.0 - 0.1 x10(3)/mc L [facility] Immature Gran % 0.80 % [facility] Comment: Immature granulocytes(IG's)percentage and absolute count will include metamyelocytes, myelocytes, and promyelocytes. Blood smears from CBCs yielding IG's will be scanned manually for concordance. If this scan disagrees with the automated IG or if promyelocytes are noted, a manual differential will be performed. Immature Gran Absolute 0.06(H) 0.00 - 0.04 x10(3)/ L [facility] Blood 05/31/2022 12:4 4 PM EDT 05/31/2022 12:57 PM EDT Narrative Resulting Agency Comment Spec In Lab Brittany Ramirez MD HEMATOLOGY ORDERABLE S [facility] [place] [address] * (ABNORMAL) Hemogram (05/31/2022 12:44 PM EDT) White Blood Cell 7.6 4.0 - 9.5 x10(3)/[facility] Red Blood Cell 2.11(L) 4.58 - 5.54 x10(6)/[facility] Hemoglobin 6.9(L) 13.7 - 16.5 g/dL [facility] Hematocrit 20.8(L) 40.5 - 48.5 % [facility] Mean Cell Volume 98.6(H) 82.9 - 93.1 fL [facility] Mean Cell Hemoglobin 32.7(H) 27.5 - 32.1 pg [facility] Mean Cell Hemoglobin Concentration 33.2 32.0 - 35.7 g/dL [facility] Platelet 255 145 - 357 x10(3)/[facility] RDW Standard Deviation 47.7(H) 36.0 - 45.0 fL [facility] RDW coefficient of variation 13.4 11.4 - 13.8 % [facility] Mean Platelet Volume 10.7 7.6 - 12.9 fL [facility] NRBC% auto 0.0 % [facility] NRBC Absolute 0.000 0.000 - 0.000 x10(3)/[facility] Blood 05/31/2022 12:4 4 PM EDT 05/31/2022 12:57 PM EDT Narrative Resulting Agency Comment Spec In Lab Brittany Ramirez MD HEMATOLOGY ORDERABLE S [facility] [address] [place] [address] * (ABNORMAL) BLOOD GAS 2 VENOUS (05/31/2022 11:24 AM EDT) pH, Venous 7.38 7.32 - 7.42 [facility] PCO2, Venous 40(L) 41 - 51 mmHg [facility] PO2, Venous 18(L) 25 - 40 mmHg [facility] Bicarbonate, Venous 23.3 mmol/L [facility] Base Excess, Venous -1.8 mmol/L [facility] Hgb Blood Gas 7.0(L) 13.7 - 16.5 g/dL [facility] Oxyhemoglobin, Venous 24.3 % [facility] Carboxyhemoglob in, Venous 1.4 % [facility] Comment: Nonsmokers: 0.5-1.5% COHB Smokers: Variable, but usually less than 10% Toxic: 20-30% COHB Lethal: Greater than 60% COHB Methemoglobin, Venous 1.7(H) <=1.5 % [facility] Na Whole Blood 137 135 - 145 mmol/L [facility] K Whole Blood 3.9 [...] [facility] Gluc Whole Bld 204(H) 65 - 199 mg/dL [facility] Comment:Diabetes: >=200 mg/d L plus symptoms Lactate WB 1.4 0.5 - 2.2 mmol/L [facility] Blood Gas Source Venous [facility] Blood 05/31/2022 11:2 4 AM EDT 05/31/2022 11:24 AM EDT Dominique Hinds MD POINT OF CARE TEST O RDERABLES Performing Organization Address [facility] Co de Phone Number [facility] [place] [address] * TSH Bryan (05/31/2022 11:20 AM EDT) Thyroid Stimulating Hormone 1.67 0.27 - 4.20 mcIU/mL [facility] Comment: Reference Interval (mcIU/mL): Females: ??First Trimester: 0.23-3.88 ??Second Trimester: 0.22-3.90 ??Third Trimester: 0.44-4.66 Blood 05/31/2022 11:2 0 AM EDT 05/31/2022 11:28 AM EDT Narrative Resulting Agency Comment Spec In Lab Dominique Hinds MD CHEMISTRY ORDERABLES Performing Organization Address [facility] de Phone Number [facility] [place] [address] * XR Chest PA & Lateral (Generic) [...] have questions please contact the health director of health care marketing that requested your imaging first. ? Narrative [...] patients who have questions please contactthe health director of health care marketing that requested your imaging first. Dominique Hinds MD IMG DX ORDERABLES * Lipase (05/31/2022 10:50 AM EDT) Pathologist [facility] Lipase 41 0 - 60 unit/L [facility] Blood Venous Draw / Unknown 05/31/2022 10:50 AM EDT 05/31/2022 11:11 AM EDT Narrative Resulting Agency Comment Spec In Lab Zain Champion MD CHEMISTRY ORD ERABLES Performing Organization Address City/[facility] Co de Phone Number [facility] [place] [address] * (ABNORMAL) Hepatic Function Panel (05/31/2022 10:50 AM EDT) Protein, Total 6.4 6.1 - 8.0 g/dL [facility] Albumin 4.1 3.2 - 5.2 g/dL [facility] Aspartate Aminotransferase 24 0 - 39 unit/L [facility] Alanine Aminotransferase 44 0 - 55 unit/L [facility] Alkaline Phosphatase 63 40 - 130 unit/L [facility] Bilirubin, Total <0.2(L) 0.2 - 1.3 mg/dL [facility] Bilirubin, Direct 0.1 0.0 - 0.3 mg/dL [facility] Blood Venous Draw / Unknown 05/31/2022 10:50 AM EDT 05/31/2022 11:11 AM EDT Narrative Resulting Agency Comment Spec In Lab Zain Champion MD CHEMISTRY ORD ERABLES [facility] [place] [address] * Blue Tube HOLD (05/31/2022 10:50 AM EDT) [facility] Blue Hold Sample in lab. [facility] Blood Venous Draw / Unknown 05/31/2022 10:50 AM EDT 05/31/2022 11:05 AM EDT Brittany Ramirez MD HEMATOLOGY ORDERABLE S Performing Organization Address City/[facility] Co de Phone Number [facility] [place] [address] * (ABNORMAL) Differential, Automated (05/31/2022 10:50 AM EDT) [facility] Neutrophil % 66.9 % [facility] Neutrophil Absolute 5.58 1.70 - 6.10 x10(3)/mc L [facility] Lymph % 22.2 % [facility] Lymphocytes Abs 1.8 0.9 - 3.2 x10(3)/mc L [facility] Monocyte % 7.8 % [facility] Monocyte Abs 0.6 0.3 - 0.9 x10(3)/mc L [facility] Eos % 1.2 % [facility] Eosinophils Abs 0.1 0.0 - 0.4 x10(3)/mc L [facility] Basophil % 0.7 % [facility] Baso Absolute 0.1 0.0 - 0.1 x10(3)/mc L [facility] Immature Gran % 1.20 % [facility] Comment: Immature granulocytes(IG's)percentage and absolute count will include metamyelocytes, myelocytes, and promyelocytes. Blood smears from CBCs yielding IG's will be scanned manually for concordance. If this scan disagrees with the automated IG or if promyelocytes are noted, a manual differential will be performed. Immature Gran Absolute 0.10(H) 0.00 - 0.04 x10(3)/ L [facility] Blood 05/31/2022 10:5 0 AM EDT 05/31/2022 11:03 AM EDT Narrative Resulting Agency Comment Spec In Lab Brittany Ramirez MD HEMATOLOGY ORDERABLE S [facility] [place] [address] * (ABNORMAL) Hemogram (05/31/2022 10:50 AM EDT) White Blood Cell 8.3 4.0 - 9.5 x10(3)/[facility] Red Blood Cell 2.26(L) 4.58 - 5.54 x10(6)/[facility] Hemoglobin 7.4(L) 13.7 - 16.5 g/dL [facility] Hematocrit 22.3(L) 40.5 - 48.5 % [facility] Mean Cell Volume 98.7(H) 82.9 - 93.1 [facility] Mean Cell Hemoglobin 32.7(H) 27.5 - 32.1 pg [facility] Mean Cell Hemoglobin Concentration 33.2 32.0 - 35.7 g/dL [facility] Platelet 283 145 - 357 x10(3)/[facility] RDW Standard Deviation 47.0(H) 36.0 - 45.0 [facility] RDW coefficient of variation 13.4 11.4 - 13.8 % [facility] Mean Platelet Volume 10.8 7.6 - 12.9 [facility] NRBC% auto 0.0 % [facility] NRBC Absolute 0.000 0.000 - 0.000 x10(3)/ L [facility] Blood 05/31/2022 10:5 0 AM EDT 05/31/2022 11:03 AM EDT Narrative Resulting Agency Comment Spec In Lab Brittany Ramirez MD HEMATOLOGY ORDERABLE S [facility] [place] [address] * Phosphorus (05/31/2022 10:50 AM EDT) Phosphorus 3.2 2.5 - 4.5 mg/dL [facility] Blood 05/31/2022 10:5 0 AM EDT 05/31/2022 11:03 AM EDT Narrative Resulting Agency Comment Spec In Lab Dominique Hinds MD CHEMISTRY ORDERABLES Performing Organization Address [facility] Co de Phone Number [facility] [place] [address] * Magnesium (05/31/2022 10:50 AM EDT) Magnesium 0.93 0.69 - 1.07 mmol/L [facility] Blood 05/31/2022 10:5 0 AM EDT 05/31/2022 11:03 AM EDT Narrative Resulting Agency Comment Spec In Lab Dominique Hinds MD CHEMISTRY ORDERABLES Performing Organization Address City/[facility]/ZIP Co de Phone Number [facility] [place] [address] * (ABNORMAL) pro-Brain Natriuretic Peptide (05/31/2022 10:50 AM EDT) NT-proBNP 1,077(H) <=449 pg/mL [facility] Blood 05/31/2022 10:5 0 AM EDT 05/31/2022 11:03 AM EDT Narrative Resulting Agency Comment Spec In Lab Dominique Hinds MD CHEMISTRY ORDERABLES Performing Organization Address City/[facility]/ZIP Co de Phone Number [facility] [place] [address] * Troponin (05/31/2022 10:50 AM EDT) [facility] Troponin-T <0.01 0.00 - 0.00 ng/mL [facility] Comment: The 99th percentile [...] ischemia ?? New or presumed new significant [id number] wave (ST-T) changes or new left bundle [...] additional sample may be indicated. Reference: Third [place] Definition of Myocardial Infarction. [employer] of the [employer] 2012;60:1581-98 Blood 05/31/2022 10:5 0 AM EDT 05/31/2022 11:03 AM EDT Narrative Resulting Agency Comment Spec In Lab Dominique Hinds MD CHEMISTRY ORDERABLES [facility] [place] [address] * (ABNORMAL) Basic Metabolic Panel (non-fasting) (05/31/2022 10:50 AM EDT) [facility] Glucose 223(H) 65 - 199 mg/dL [facility] Comment:Diabetes: >=200 mg/d L plus symptoms Blood Urea Nitrogen 39(H) 10 - 20 mg/dL [facility] Creatinine 0.91 0.80 - 1.50 mg/dL [facility] [facility] Sodium 140 135 - [...] questions. Chloride 107 98 - 107 mmol/L [facility] Carbon Dioxide 23 22 - 31 mmol/L [facility] Anion Gap 10 5 - 15 mmol/L [facility] Calcium 9.1 8.5 - 10.5 mg/dL [facility] Est Glomerular Filtration Rate 86 >=60 mL/min/1. 73 m?? [facility] Comment: This [...] In Lab Dominique Hinds MD CHEMISTRY ORDERABLES [facility] [place] [address] * EKG 12 Lead (05/31/2022 10:11 AM EDT) Ventricular rate 106 BPM MUSE SYSTEM QRS Duration 122 ms MUSE SYSTEM Q-T Interval 368 ms MUSE SYSTEM QTC Calculated (Bezet) 488 ms MUSE SYSTEM Calculated R Cyril -43 degrees MUSE SYSTEM Calculated T Cyril 109 degrees MUSE SYSTEM INTERPRETATION Atrial fibrillation [...] interpretation Confirmed by fellow MD Mckeon Benjamin ([id number]) on 06/02/2022 8:36:21 PM Confirmed by MD [...] RN)[id number] (Rate/Dose Verify - Provider: Raven Barbour RN)[id number] (New Bag - Provider: Raven Barbour RN)[id number] (Stopped - Provider: Maranda Ribeiro RN) PRN [...] Routine documented in this encounter Care Teams Platform Operations Director Relationship Specialty Start Date End Date Bobby Das MD [address] [place] [address] [place] [id number] PCP - General 10/02/10 documented as of this encounter
--- OUTSIDE RECORDS SUMMARY | 2024-09-30 17:03 | XMS_ITS | Encounter Summary ---
[place] [address] Care Team Providers Care Dry Cleaning Machine Operator Helper Name Role Phone Abby Das MD Primary Care Provider [phone] Reason for Visit * Reason Comments Dizziness * Auth/Cert Specialty Diagnoses / Procedures Referred By Colby t Referred To Contact Diagnoses GIB (gastrointestinal bleeding) Mata Fish MD [facility] [place] [address] [facility] Referral ID Status Reason Start Date Expiration Date Visits Re quested Visits Authorized [id number] 1 1 Encounter Details Date Type Department Care Team (Late st Contact Info) Description 05/31/2022 3:48 PM EDT - 05/31/2022 4:18 PM EDT [place] [address] Giovani Ponce MD [facility] [place] [address] EGD, UPPER GI ENDOSCOPY (WRVU 2.09) Social [...] MD - 06/02/2022 12:48 PM EDT [facility] Medicine - Discharge Summary Patient Name: [...] switching to a differentblood thinner with the ad terminal makeup operator outpatient. Call your doctor or seek [...] to a different blood thinner with your ad terminal makeup operator as an outpatient Stopped Medications - Aspirin - Valsartan - Speak with your ad terminal makeup operator about the timing of restarting this Follow-up Appointments Future Appointments Date Time Provider Department Center 06/10/2022 11:00 AM Loretta Cohen MD [facility] 06/13/2022 7:30 AM Edson [place]os [facility] VAS LAB [facility] 06/13/2022 8:00 AM Fito [facility] inpatient physician through the [facility] Associate Product Manager [phone]. Issues after hours and on weekends will be handled by the Hospitalist staff on-call. Your Primary Care Provider Abby Das MD [phone] Future Appointments and Orders Future Appointments and Orders Future Appointments Provider Department Dept Phone 06/10/2022 11:00 AM Loretta Cohen MD Dermatology [facility] Arrive at: Mail Order Clerk [address] [place] [address] 06/13/2022 7:30 AM Edson [place]os [place] V[facility] Lab at [facility] Arrive at: Mail Order Clerk Area [phone] 06/13/2022 8:00 AM Fito Summers MD Vascular Surgery at [facility] Arrive at: Mail Order Clerk Area 06/13/2022 10:00 AM Alan Reid MD Cardiology at [facility] Arrive at: Mail Order Clerk Area [phone] For questions regarding this document or issues relating to this hospitalization on the Medical Service, please contact your inpatient physician through the [facility] Associate Product Manager . Issues afterhours and on weekends [...] switching to a differentblood thinner with the ad terminal makeup operator outpatient. Call your doctor or seek [...] to a different blood thinner with your ad terminal makeup operator as an outpatient Stopped Medications - Aspirin - Valsartan - Speak with your ad terminal makeup operator about the timing of restarting this Follow-up Appointments Future Appointments Date Time Provider Department Center 06/10/2022 11:00 AM Loretta Cohen MD [facility] 06/13/2022 7:30 AM Edson [place]os [place] [facility] VAS LAB [facility] 06/13/2022 8:00 [...] inpatient physician through the [facility] Associate Product Manager [phone]. Issues after hours and on weekends will be handled by the Hospitalist staff on-call. Your Primary Care Provider Abby Das MD [phone] documented in this encounter Medications at Time of Discharge Medication Sig Dispensed Refills Start Date End Date fluticasone propionate (FLONASE) 50 mcg/actuation [place], Suspension 1 spray by Each Nare route [...] is switched to crossmatch compatible blood. * oJhn Jolley MD - 06/02/2022 2:53 PM EDT [...] spent >30 minutes (Day of Discharge Code 53323) involved in the final examination of the [...] were not included. Hospital Medicine Progress Note [place] Team - Pager #[phone] Admit Date: 05/31/2022 Name: Koko Zamora : [...] cardiology to discuss antiplatelet (ISO bleed and mcfp), following. ?? #CAD s/p stenting recently #HFrEF [...] Kurt Ames MD Internal Medicine, PGY-1 Medicine [place] Team #[id number] Associated attestation - John Jolley MD - 06/01/2022 5:02 PM EDT [facility] -- Attending Progress Note Please [...] of two midnights or is on the [facility] inpatient only procedure list (status C) due to: GI Bleeding documented in this encounter H&P Notes * Yamilet Victor MD - 05/31/2022 4:33 PM EDT Images from the original note were not included. [facility] (#[id number]) History and Physical Patient info: Name: Koko Zamora : 1940 PCP: Abby Das MD PCP phone number: [phone] Date of Admission: 05/31/2022 ( Hospital Day [...] Biopsy Spine 07/20/[address] [facility] INTERVENTIONL RAD ??? IR VERTEBROPLASTY LUMBAR MULTIPLE LEVELS 07/20/2019 IR Vertebroplasty Lumbar Multiple Levels 07/20/[address] [facility] INTERVENTIONL RAD ??? IR VERTEBROPLASTY THORACIC SINGLE LEVEL 10/25/2020 IR Vertebroplasty Thoracic Single Level 10/25/[address] [facility] INTERVENTIONL RAD ??? PRO EMBLC/THRMBC FEMORAL POPLITEAL AORTO-ILIAC ARTERY Left 05/15/2022 EMBOLECTOMY OR THROMBECTOMY, FEMOROPOPLITEAL, AORTOILIAC ARTERY BY LEG INCISION (WRVU 19.48) performed by Fito Summers MD at [facility] MAIN OR No family history on [...] 11 ??? fluticasone propionate (FLONASE) 50 mcg/actuation [place], Suspension as needed. ??? fluorouraciL (EFUDEX) 5 [...] Gas) No results found for: PHART, PO2ART, NDO4FLX, DQH9NDY Microbiology: N/A Pertinent radiology/diagnostic studies: Recent prior [...] Full Arpita Valle MD, PGY-3 05/31/2022 [facility] Medicine # [id number] Attending Staff Admission Documentation [...] 05/31/2022 3:58 PM EDT Norepinephrine pulled from [facility] for soft BPs. Upon arrival to pt's [...] AM EDT Pt brought to XR by radiographer * Brittany Ramirez MD - 05/31/2022 10:40 [...] questions please contact the health day care aide that requested your imaging first. Electronically signed by: Jl Zuluaga MD, [facility] ([phone]), at 05/31/2022 2:39 PM XR Chest PA [...] questions please contact the health day care aide that requested your imaging first. Electronically signed by: Alan Brink MD, [facility] ([phone]), at 05/31/2022 11:33 AM ED Course as [...] soft blood pressures, MD made aware. LBM MARKETING INFORMATION ANALYST. 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 Patient reported blurry/hazy [...] original note were not included. [facility] [place] [place] [address] INPATIENT CARDIOLOGY CONSULT NOTE Date of Consultation: 06/01/2022 Admit Date: 05/31/2022 Place of Service: IS86/IS86-A Referring Attending: DOMINIQUE HINDS COLEMAN W FRIEDMAN, HARLEY P Responsible Rod Finisher: [facility] Day 1 day Reason [...] Biopsy Spine 07/20/[address] [facility] INTERVENTIONL RAD ??? IR VERTEBROPLASTY LUMBAR MULTIPLE LEVELS 07/20/2019 IR Vertebroplasty Lumbar Multiple Levels 07/20/[address] [facility] INTERVENTIONL RAD ??? IR VERTEBROPLASTY THORACIC SINGLE LEVEL 10/25/2020 IR Vertebroplasty Thoracic Single Level 10/25/[address] [facility] INTERVENTIONL RAD ??? PRO EMBLC/THRMBC FEMORAL POPLITEAL AORTO-ILIAC ARTERY Left 05/15/2022 EMBOLECTOMY OR THROMBECTOMY, FEMOROPOPLITEAL, AORTOILIAC ARTERY BY LEG INCISION (WRVU 19.48) performed by Fito Summers MD at [facility] MAIN OR ALLERGIES: Allergies Allergen Reactions [...] time ??? fluticasone propionate (FLONASE) 50 mcg/actuation [place], Suspension 1 spray by Each Nare route [...] focal deficit ECG: Echocardiogram: 05/16/2022 [facility] 05/20/2022 Coronary Angiography: Dominance: Right Left Main [...] 3.5 guiding catheter and a 3.5 Fr [employer] [facility] [place] [facility] 20 Mhz. Imaging was successful. Image [...] atmospheres. A premounted 2.[address] x [address] [place] (APMARO) was deployed with a maximum inflation pressure [...] Unknown source. has had a [facility] with stent placed and revascularization of left [...] questions please contact the health day care aide that requested your imaging first. Electronically signed by: Jl Zuluaga MD, [facility] ([phone]), at 05/31/2022 2:39 PM [place] 48 Hrs-15 [...] questions please contact the health day care aide that requested your imaging first. Electronically signed by: Alan Brink MD, [facility] ([phone]), at 05/31/2022 11:33 AM LABS Recent Labs [...] ischemic systolic heart failure (recent [facility] 05/20/2022 with 2V disease OM1 and distal [...] insight. Rossy Anaya MD [facility] Hemotherapist, PGY-5 Inpatient Cardiology Consults Pager #[phone] Please check Qgenda for on-call cardiology consults [...] A&Ox 4. On room air. VSS. LBM: MARKETING INFORMATION ANALYST. Adequate urine output, urinal at bedside, flomax [...] surrogate would be surrogate decision maker per [place] surrogate decision making law. (Only good for 180 days) Any patient receiving care in [place] must abide by [place] law. The hierarchy [...] (i) The agent with financial power of business attorney or a conservator appointed in accordance [...] walker - rolling Home Address confirmed as: [address] [place] [phone] Social & Family Supports: All names listed below confirmed with patient as current and correct Extended Emergency Contact Information Primary Emergency Contact: Ursula Zamora Address: [address] [place] [id number] [facility] Relation: Spouse Current Care Provided by: self [...] Yes ; Prescription Coverage: Yes Preferred Pharmacy: [id number] - [facility] [address] [place] [address] [place] [id number] Status: Patient is a : No Primary Care Provider: Abby Das MD [phone] Patient/Caregiver Goals of Treatment: Patient plans to [...] with transition of care planning. ASH [place] Traverse Rod Assembler [facility] Medicine/ Medical Specialties Pager- [phone] * Plan [...] Operative Note Patient Name: Koko Zamora : [id number] MR#: [id number] Case Date: 05/31/2022 Surgeon: Surgeon(s) and Role: * Giovani Ponce MD - Primary Procedure(s): EGD, UPPER GI ENDOSCOPY EGD, W CONTROL OF BLEEDING, ANY METHOD Please see Provation report for details. * Consult Note - Isi Celaya MD - 05/31/2022 2:14 PM EDT Images from the original note were not included. DIVISION OF GASTROENTEROLOGY & HEPATOLOGY INITIAL CONSULT REQUESTING PROVIDER: Dominqiue Hinds MD NAME: Koko Zamora : 1940 [...] Biopsy Spine 07/20/[address] [facility] INTERVENTIONL RAD ??? IR VERTEBROPLASTY LUMBAR MULTIPLE LEVELS 07/20/2019 IR Vertebroplasty Lumbar Multiple Levels 07/20/[address] [facility] INTERVENTIONL RAD ??? IR VERTEBROPLASTY THORACIC SINGLE LEVEL 10/25/2020 IR Vertebroplasty Thoracic Single Level 10/25/[address] [facility] INTERVENTIONL RAD ??? PRO EMBLC/THRMBC FEMORAL POPLITEAL AORTO-ILIAC ARTERY Left 05/15/2022 EMBOLECTOMY OR THROMBECTOMY, FEMOROPOPLITEAL, AORTOILIAC ARTERY BY LEG INCISION (WRVU 19.48) performed by Fito Summers MD at [facility] MAIN OR SOCIAL HX: Social History [...] sounds, tympanic to percussion RECTAL: performed with program attendant present, no overt masses, fissures, external hemorrhoids, [...] questions please contact the health day care aide that requested your imaging first. Electronically signed by: Alan Brink MD, [facility] ([phone]), at 05/31/2022 11:[address] Abdomen & [...] PM EDT Upper Gi Endoscopy, Ctrl Bleed ([id number]) 05/31/2022 4:05 PM EDT melena Upper GI Endoscopy, Diagnostic ([id number]) 05/31/2022 4:05 PM EDT melena UPPER GI [...] 8:20 AM EDT) Neutrophil % 61.3 % [facility] Neutrophil Absolute 4.44 1.70 - 6.10 x10(3)/mc L [facility] Lymph % 25.2 % [facility] Lymphocytes Abs 1.8 0.9 - 3.2 x10(3)/[facility] Monocyte % 10.0 % [facility] Monocyte Abs 0.7 0.3 - 0.9 x10(3)/[facility] Eos % 2.1 % [facility] Eosinophils Abs 0.2 0.0 - 0.4 x10(3)/[facility] Basophil % 0.7 % [facility] Baso Absolute 0.0 0.0 - 0.1 x10(3)/[facility] Immature Gran % 0.70 % [facility] Comment: Immature granulocytes(IG's)percentage and absolute count will include metamyelocytes, myelocytes, and promyelocytes. Blood smears from CBCs yielding IG's will be scanned manually for concordance. If this scan disagrees with the automated IG or if promyelocytes are noted, a manual differential will be performed. Immature Gran Absolute 0.05(H) 0.00 - 0.04 x10(3)/[facility] Blood 06/02/2022 8:20 AM EDT 06/02/2022 8:25 AM EDT Narrative Resulting Agency Comment Spec In Lab Kurt Ames MD HEMATOLOGY ORDERABL ES [facility] [place] [address] * (ABNORMAL) Hemogram (06/02/2022 8:20 AM EDT) White Blood Cell 7.2 4.0 - 9.5 x10(3)/[facility] Red Blood Cell 2.74(L) 4.58 - 5.54 x10(6)/[facility] Hemoglobin 8.7(L) 13.7 - 16.5 g/dL [facility] Hematocrit 25.7(L) 40.5 - 48.5 % [facility] Mean Cell Volume 93.8(H) 82.9 - 93.1 fL [facility] Mean Cell Hemoglobin 31.8 27.5 - 32.1 pg [facility] Mean Cell Hemoglobin Concentration 33.9 32.0 - 35.7 g/dL [facility] Platelet 260 145 - 357 x10(3)/mc L [facility] RDW Standard Deviation 51.0(H) 36.0 - 45.0 fL [facility] RDW coefficient of variation 14.9(H) 11.4 - 13.8 % [facility] Mean Platelet Volume 10.0 7.6 - 12.9 fL [facility] NRBC% auto 0.0 % [facility] NRBC Absolute 0.000 0.000 - 0.000 x10(3)/mc L [facility] Blood 06/02/2022 8:20 AM EDT 06/02/2022 8:25 AM EDT Narrative Resulting Agency Comment Spec In Lab Kurt Ames MD HEMATOLOGY ORDERABL ES [facility] [place] [address] * Heparin (unfractionated) Level (06/02/2022 6:30 AM EDT) UF Heparin 0.39 IU/mL [facility] Comment: Heparin [...] MD HEMATOLOGY ORDERAB LES Performing Organization Address [facility] Co de Phone Number [facility] [place] [address] * Heparin (unfractionated) Level (06/02/2022 12:30 AM EDT) UF Heparin 0.81 IU/mL [facility] Comment: Heparin [...] MD HEMATOLOGY ORDERAB LES Performing Organization Address [facility] de Phone Number [facility] [place] [address] * Magnesium (06/02/2022 12:30 AM EDT) Magnesium 0.83 0.69 - 1.07 mmol/L [facility] Blood 06/02/2022 12:3 0 AM EDT 06/02/2022 12:40 AM EDT Narrative Resulting Agency Comment Spec In Lab Yamilet Victor MD CHEMISTRY ORDERABL ES Performing Organization Address [facility]/State/ZIP Co de Phone Number [facility] [place] [address] * (ABNORMAL) Basic Metabolic Panel (non-fasting) (06/02/2022 12:30 AM EDT) Glucose 151 65 - 199 mg/dL [facility] Comment:Diabetes: >=200 mg/d L plus symptoms Blood Urea Nitrogen 12 10 - 20 mg/dL [facility] Creatinine 0.71(L) 0.80 - 1.50 mg/dL [facility] [...] questions. Chloride 108(H) 98 - 107 mmol/L [facility] Carbon Dioxide 24 22 - 31 mmol/L [facility] Anion Gap 10 5 - 15 mmol/L [facility] Calcium 8.1(L) 8.5 - 10.5 mg/dL [facility] Est Glomerular Filtration Rate 93 >=60 mL/min/1. 73 m?? [facility] Comment: [...] MD CHEMISTRY ORDERABL ES Performing Organization Address City/[facility]/ZIP Co de Phone Number [facility] [place] [address] * (ABNORMAL) Differential, Automated (06/01/2022 7:29 PM EDT) Neutrophil % 68.8 % [facility] Neutrophil Absolute 5.34 1.70 - 6.10 x10(3)/mc L [facility] Lymph % 19.6 % [facility] Lymphocytes Abs 1.5 0.9 - 3.2 x10(3)/ L [facility] Monocyte % 8.1 % [facility] Monocyte Abs 0.6 0.3 - 0.9 x10(3)/ L [facility] Eos % 1.8 % [facility] Eosinophils Abs 0.1 0.0 - 0.4 x10(3)/ L [facility] Basophil % 0.8 % [facility] Baso Absolute 0.1 0.0 - 0.1 x10(3)/ L [facility] Immature Gran % 0.90 % [facility] Comment: Immature granulocytes(IG's)percentage and absolute count will include metamyelocytes, myelocytes, and promyelocytes. Blood smears from CBCs yielding IG's will be scanned manually for concordance. If this scan disagrees with the automated IG or if promyelocytes are noted, a manual differential will be performed. Immature Gran Absolute 0.07(H) 0.00 - 0.04 x10(3)/ L [facility] Blood 06/01/2022 7:29 PM EDT 06/01/2022 7:29 PM EDT Narrative Resulting Agency Comment Spec In Lab Kurt Ames MD HEMATOLOGY ORDERABL ES Performing Organization Address City/[facility]/ZIP Co de Phone Number [facility] [place] [address] * (ABNORMAL) Hemogram (06/01/2022 7:29 PM EDT) White Blood Cell 7.8 4.0 - 9.5 x10(3)/ L [facility] Red Blood Cell 2.65(L) 4.58 - 5.54 x10(6)/mc L [facility] Hemoglobin 8.3(L) 13.7 - 16.5 g/dL [facility] Hematocrit 24.8(L) 40.5 - 48.5 % [facility] Mean Cell Volume 93.6(H) 82.9 - 93.1 fL [facility] Mean Cell Hemoglobin 31.3 27.5 - 32.1 pg [facility] Mean Cell Hemoglobin Concentration 33.5 32.0 - 35.7 g/dL [facility] Platelet 263 145 - 357 x10(3)/[facility] RDW Standard Deviation 52.8(H) 36.0 - 45.0 [facility] RDW coefficient of variation 15.4(H) 11.4 - 13.8 % [facility] Mean Platelet Volume 10.4 7.6 - 12.9 fL [facility] NRBC% auto 0.0 % [facility] NRBC Absolute 0.000 0.000 - 0.000 x10(3)/[facility] Blood 06/01/2022 7:29 PM EDT 06/01/2022 7:29 PM EDT Narrative Resulting Agency Comment Spec In Lab Kurt Ames MD HEMATOLOGY ORDERABL ES [facility] [place] [address] * Heparin (unfractionated) Level (06/01/2022 7:29 PM EDT) UF Heparin 0.81 IU/mL [facility] Comment: Heparin [...] Lab Yamilet Victor MD HEMATOLOGY ORDERAB LES [facility] [place] [address] * (ABNORMAL) Heparin (unfractionated) Level (06/01/2022 11:32 AM EDT) UF Heparin 1.05(Crit ical) IU/mL [facility] Comment: Critical Result [...] MD HEMATOLOGY ORDERAB LES Performing Organization Address City/[facility]/ZIP Co de Phone Number [facility] [place] [address] * (ABNORMAL) Differential, Automated (06/01/2022 5:56 AM EDT) Neutrophil % 62.7 % [facility] Neutrophil Absolute 6.11(H) 1.70 - 6.10 x10(3)/mc L [facility] Lymph % 23.5 % [facility] Lymphocytes Abs 2.3 0.9 - 3.2 x10(3)/ L [facility] Monocyte % 10.0 % [facility] Monocyte Abs 1.0(H) 0.3 - 0.9 x10(3)/ L [facility] Eos % 2.2 % [facility] Eosinophils Abs 0.2 0.0 - 0.4 x10(3)/ L [facility] Basophil % 0.9 % [facility] Baso Absolute 0.1 0.0 - 0.1 x10(3)/mc L [facility] Immature Gran % 0.70 % [facility] Comment: Immature granulocytes(IG's)percentage and absolute count will include metamyelocytes, myelocytes, and promyelocytes. Blood smears from CBCs yielding IG's will be scanned manually for concordance. If this scan disagrees with the automated IG or if promyelocytes are noted, a manual differential will be performed. Immature Gran Absolute 0.07(H) 0.00 - 0.04 x10(3)/ L [facility] Blood 06/01/2022 5:56 AM EDT 06/01/2022 6:05 AM EDT Narrative Resulting Agency Comment Spec In Lab Arpita Valle MD HEMATOLOGY ORDERABLE S [facility] [place] [address] * (ABNORMAL) Hemogram (06/01/2022 5:56 AM EDT) White Blood Cell 9.7(H) 4.0 - 9.5 x10(3)/mc L [facility] Red Blood Cell 2.83(L) 4.58 - 5.54 x10(6)/mc L [facility] Hemoglobin 9.0(L) 13.7 - 16.5 g/dL [facility] Hematocrit 26.7(L) 40.5 - 48.5 % [facility] Mean Cell Volume 94.3(H) 82.9 - 93.1 fL [facility] Mean Cell Hemoglobin 31.8 27.5 - 32.1 pg [facility] Mean Cell Hemoglobin Concentration 33.7 32.0 - 35.7 g/dL [facility] Platelet 250 145 - 357 x10(3)/mc L [facility] RDW Standard Deviation 54.3(H) 36.0 - 45.0 fL [facility] RDW coefficient of variation 15.9(H) 11.4 - 13.8 % [facility] Mean Platelet Volume 10.5 7.6 - 12.9 fL [facility] NRBC% auto 0.0 % [facility] NRBC Absolute 0.000 0.000 - 0.000 x10(3)/mc L [facility] Blood 06/01/2022 5:56 AM EDT 06/01/2022 6:05 AM EDT Narrative Resulting Agency Comment Spec In Lab Arpita Valle MD HEMATOLOGY ORDERABLE S Performing Organization Address City/[facility]/ZIP Co de Phone Number [facility] [place] [address] * Heparin (unfractionated) Level (06/01/2022 4:30 AM EDT) UF Heparin 0.68 IU/mL [facility] Comment: Heparin [...] MD HEMATOLOGY ORDERAB LES Performing Organization Address City/State/[facility] Co de Phone Number [facility] [place] [address] * (ABNORMAL) Urinalysis with reflex Culture (06/01/2022 4:00 AM EDT) Pathologist [facility] Glucose, Urine Dipstick 500(Critical ) Negative mg/dL [facility] Comment: Urinalysis result NOT critical without a combination of Glucose greater than or equal to 500 mg/dL AND Ketones greater than or equal to 80 mg/dL Protein, Urine Dipstick Negative Negative mg/dL [facility] Bilirubin, Urine Dipstick Negative Negative mg/dL [facility] Comment: Clinical correlation required for positive Urine Bilirubin results as false positive may occur with some drugs and drug related products. If a false positive is suspected a serum total bilirubin should be considered if clinically indicated. Urobilinogen, Urine Dipstick Normal Normal mg/dL [facility] pH, Urn (dipstick) 6.0 5.0 - 8.0 [facility] Blood, Urine Dipstick Negative Negative mg/dL [facility] Ketone, Urine Dipstick Negative Negative mg/dL [facility] Nitrite, Urine Dipstick Negative Negative [facility] Leukocytes, Urine Dipstick Negative Negative mcL [facility] Appearance, Urine Dipstick Clear Clear [facility] Specific [place] Urine Automated >=1.030(A) 1.005 - 1.030 [facility] Color, Urine Dipstick Yellow Yellow [facility] Reflex to Culture No [facility] Clean Catch Urine 06/01/2022 4:00 AM EDT 06/01/2022 4:26 AM EDT Narrative Resulting Agency Comment Spec In Lab Yamilet Victor MD URINE ORDERABLES Performing Organization Address [facility] Phone Number [facility] [place] [address] * Magnesium (06/01/2022 1:00 AM EDT) Magnesium 0.93 0.69 - 1.07 mmol/L [facility] Blood 06/01/2022 1:00 AM EDT 06/01/2022 1:37 AM EDT Narrative Resulting Agency Comment Spec In Lab Yamilet Victor MD CHEMISTRY ORDERABL ES Performing Organization Address [facility] [place] Phone Number [facility] [place] [address] * (ABNORMAL) Basic Metabolic Panel (non-fasting) (06/01/2022 1:00 AM EDT) Glucose 148 65 - 199 mg/dL [facility] Comment:Diabetes: >=200 mg/d L plus symptoms Blood Urea Nitrogen 23(H) 10 - 20 mg/dL [facility] Creatinine 0.78(L) 0.80 - 1.50 mg/dL [facility] questions. Chloride 108(H) 98 - 107 mmol/L [facility] Carbon Dioxide 24 22 - 31 mmol/L [facility] Anion Gap 9 5 - 15 mmol/L [facility] Calcium 8.6 8.5 - 10.5 mg/dL [facility] Est Glomerular Filtration Rate 91 >=60 mL/min/1. 73 m?? [facility] Comment: [...] Lab Yamilet Victor MD CHEMISTRY ORDERABL ES [facility] [place] [address] * (ABNORMAL) Differential, Automated (06/01/2022 12:00 AM EDT) Neutrophil % 64.6 % [facility] Neutrophil Absolute 5.60 1.70 - 6.10 x10(3)/mc L [facility] Lymph % 22.4 % [facility] Lymphocytes Abs 1.9 0.9 - 3.2 x10(3)/mc L [facility] Monocyte % 9.5 % [facility] Monocyte Abs 0.8 0.3 - 0.9 x10(3)/[facility] Eos % 2.1 % [facility] Eosinophils Abs 0.2 0.0 - 0.4 x10(3)/[facility] Basophil % 0.6 % [facility] Baso Absolute 0.0 0.0 - 0.1 x10(3)/[facility] Immature Gran % 0.80 % [facility] Comment: Immature granulocytes(IG's)percentage and absolute count will include metamyelocytes, myelocytes, and promyelocytes. Blood smears from CBCs yielding IG's will be scanned manually for concordance. If this scan disagrees with the automated IG or if promyelocytes are noted, a manual differential will be performed. Immature Gran Absolute 0.07(H) 0.00 - 0.04 x10(3)/[facility] Blood 06/01/2022 06/01/2022 12: 10 AM EDT Narrative Resulting Agency Comment Spec In Lab Arpita Valle MD HEMATOLOGY ORDERABLE S [facility] [place] [address] * (ABNORMAL) Hemogram (06/01/2022 12:00 AM EDT) White Blood Cell 8.7 4.0 - 9.5 x10(3)/[facility] Red Blood Cell 2.77(L) 4.58 - 5.54 x10(6)/[facility] Hemoglobin 8.6(L) 13.7 - 16.5 g/dL [facility] Hematocrit 25.7(L) 40.5 - 48.5 % [facility] Mean Cell Volume 92.8 82.9 - 93.1 fL [facility] Mean Cell Hemoglobin 31.0 27.5 - 32.1 pg [facility] Mean Cell Hemoglobin Concentration 33.5 32.0 - 35.7 g/dL [facility] Platelet 260 145 - 357 x10(3)/mc L [facility] RDW Standard Deviation 51.9(H) 36.0 - 45.0 fL [facility] RDW coefficient of variation 15.5(H) 11.4 - 13.8 % [facility] Mean Platelet Volume 10.4 7.6 - 12.9 fL [facility] NRBC% auto 0.0 % [facility] NRBC Absolute 0.000 0.000 - 0.000 x10(3)/mc L [facility] Blood 06/01/2022 06/01/2022 12: 10 AM EDT Narrative Resulting Agency Comment Spec In Lab Arpita Valle MD HEMATOLOGY ORDERABLE S [facility] [place] [address] * (ABNORMAL) Differential, Automated (05/31/2022 9:17 PM EDT) Neutrophil % 59.6 % [facility] Neutrophil Absolute 3.98 1.70 - 6.10 x10(3)/mc L [facility] Lymph % 27.5 % [facility] Lymphocytes Abs 1.8 0.9 - 3.2 x10(3)/mc L [facility] Monocyte % 9.1 % [facility] Monocyte Abs 0.6 0.3 - 0.9 x10(3)/mc L [facility] Eos % 2.4 % [facility] Eosinophils Abs 0.2 0.0 - 0.4 x10(3)/mc L [facility] Basophil % 0.7 % [facility] Baso Absolute 0.0 0.0 - 0.1 x10(3)/mc L [facility] Immature Gran % 0.70 % [facility] Comment: Immature granulocytes(IG's)percentage and absolute count will include metamyelocytes, myelocytes, and promyelocytes. Blood smears from CBCs yielding IG's will be scanned manually for concordance. If this scan disagrees with the automated IG or if promyelocytes are noted, a manual differential will be performed. Immature Gran Absolute 0.05(H) 0.00 - 0.04 x10(3)/ L [facility] Blood 05/31/2022 9:17 PM EDT 05/31/2022 9:25 PM EDT Narrative Resulting Agency Comment Spec In Lab Arpita Valle MD HEMATOLOGY ORDERABLE S [facility] [place] [address] * (ABNORMAL) Hemogram (05/31/2022 9:17 PM EDT) White Blood Cell 6.7 4.0 - 9.5 x10(3)/[facility] Red Blood Cell 2.74(L) 4.58 - 5.54 x10(6)/mc L [facility] Hemoglobin 8.5(L) 13.7 - 16.5 g/dL [facility] Hematocrit 25.7(L) 40.5 - 48.5 % [facility] Mean Cell Volume 93.8(H) 82.9 - 93.1 fL [facility] Mean Cell Hemoglobin 31.0 27.5 - 32.1 pg [facility] Mean Cell Hemoglobin Concentration 33.1 32.0 - 35.7 g/dL [facility] Platelet 233 145 - 357 x10(3)/ L [facility] RDW Standard Deviation 51.9(H) 36.0 - 45.0 fL [facility] RDW coefficient of variation 15.3(H) 11.4 - 13.8 % [facility] Mean Platelet Volume 10.3 7.6 - 12.9 fL [facility] NRBC% auto 0.0 % [facility] NRBC Absolute 0.000 0.000 - 0.000 x10(3)/mc L [facility] Blood 05/31/2022 9:17 PM EDT 05/31/2022 9:25 PM EDT Narrative Resulting Agency Comment Spec In Lab Arpita Valle MD HEMATOLOGY ORDERABLE S [facility] [place] [address] * Transfuse RBC (05/31/2022 7:36 PM EDT) Dominique Hinds MD NURSING TREATMENT OR DERABLES - BLOOD ADMIN * Transfuse RBC (05/31/2022 7:36 PM EDT) Dominique Hinds MD NURSING TREATMENT OR DERABLES - BLOOD ADMIN * UPPER GI ENDOSCOPY (05/31/2022 3:37 PM EDT) [facility] [address] UPPER GI ENDOSCOPY [facility] Endoscopy ___ Procedure Date: 05/31/2022 3:37 PM ? Patient Name: Koko Zamora ? Date of : 1940 ? Age: 81 ? Order #: [id number] ? Instrument Name: [id number] ? ___ Procedure: ? Upper GI endoscopy Indications: ? Melena, Suspected upper ? gastrointestinal bleeding Providers: ? Giovani Ponce, Torrey Gannon, ? Vani Wei RN, Juhi Fajardo, ? Alannah Hutchinson, Sanitation Worker Cleaning Equipment Referring MD: ?Dominique Hinds Medicines: ? Propofol [...] Procedure Code(s): ? --- Professional --- ? 11627, Esophagogastroduode noscopy, ? flexible, transoral; with control [...] in this report are preliminary and upon mumps developer review may be revised to meet current [...] questions please contact the health day care aide that requested your imaging first. ? Electronically signed by: Jl Zuluaga MD, [facility] ([phone]), at 05/31/2022 2:39 PM Narrative 05/31/2022 2:39 [...] patients who have questions please contactthe health day care aide that requested your imaging first. Dominique Hinds MD IMG CT ORDERABLES * Type and Screen Validity (05/31/2022 1:43 PM EDT) [facility] [address] T&S only valid at [facility] Comment:This Type and Screen result is only valid at the [facility] Blood 05/31/2022 1:43 PM EDT 05/31/2022 1:57 PM EDT Narrative Resulting Agency Comment Spec In Lab Dominique Hinds MD BLOOD BANK LAB ORDER NICK Performing Organization Address [facility] Co de Phone Number [facility] [place] [address] * ABORH Recheck Status (05/31/2022 1:43 PM EDT) [facility] [address] ABORH Type Recheck Completed [facility] Blood 05/31/2022 1:43 PM EDT 05/31/2022 1:57 PM EDT Narrative Resulting Agency Comment Spec In Lab Dominique Hinds MD BLOOD BANK LAB ORDER NICK Performing Organization Address [facility]/ZIP Co de Phone Number [facility] [place] [address] * Antibody screen (05/31/2022 1:43 PM EDT) [facility] [address] Ab Screen Interp Negative [facility] Expires at [id number] on: 06/03/2022 [facility] Blood 05/31/2022 1:43 PM EDT 05/31/2022 1:57 PM EDT Narrative Resulting Agency Comment Spec In Lab Dominique Hinds MD BLOOD BANK LAB ORDER NICK [facility] [place] [address] * ABO/Rh Typing (05/31/2022 1:43 PM EDT) ABORH Type O Pos [facility] Blood 05/31/2022 1:43 PM EDT 05/31/2022 1:57 PM EDT Narrative Resulting Agency Comment Spec In Lab Dominique Hinds MD BLOOD BANK LAB ORDER NICK Performing Organization Address [facility]/ZIP Co de Phone Number [facility] [place] [address] * Prepare RBC (05/31/2022 1:35 PM EDT) Dispensed? Yes [facility] Blood 05/31/2022 1:35 PM EDT 05/31/2022 1:30 PM EDT Dominique Hinds MD BLOOD BANK PRODUCT O RDERABLES Performing Organization Address City/[facility]/ZIP Co de Phone Number [facility] [place] [address] * Prepare RBC (05/31/2022 1:25 PM EDT) Dispensed? Yes [facility] Blood 05/31/2022 1:25 PM EDT 05/31/2022 1:23 PM EDT Dominique Hinds MD BLOOD BANK PRODUCT O RDERABLES Performing Organization Address [facility]/ZIP Co de Phone Number [facility] [place] [address] * (ABNORMAL) Differential, Automated (05/31/2022 12:44 PM EDT) Neutrophil % 62.0 % [facility] Neutrophil Absolute 4.71 1.70 - 6.10 x10(3)/mc L [facility] Lymph % 24.1 % [facility] Lymphocytes Abs 1.8 0.9 - 3.2 x10(3)/ L [facility] Monocyte % 10.8 % [facility] Monocyte Abs 0.8 0.3 - 0.9 x10(3)/[facility] Eos % 1.6 % [facility] Eosinophils Abs 0.1 0.0 - 0.4 x10(3)/[facility] Basophil % 0.7 % [facility] Baso Absolute 0.0 0.0 - 0.1 x10(3)/ L [facility] Immature Gran % 0.80 % [facility] Comment: Immature granulocytes(IG's)percentage and absolute count will include metamyelocytes, myelocytes, and promyelocytes. Blood smears from CBCs yielding IG's will be scanned manually for concordance. If this scan disagrees with the automated IG or if promyelocytes are noted, a manual differential will be performed. Immature Gran Absolute 0.06(H) 0.00 - 0.04 x10(3)/ L [facility] Blood 05/31/2022 12:4 4 PM EDT 05/31/2022 12:57 PM EDT Narrative Resulting Agency Comment Spec In Lab Brittnay Ramirez MD HEMATOLOGY ORDERABLE S Performing Organization Address City/[facility]/ZIP Co de Phone Number [facility] [place] [address] * (ABNORMAL) Hemogram (05/31/2022 12:44 PM EDT) White Blood Cell 7.6 4.0 - 9.5 x10(3)/ L [facility] Red Blood Cell 2.11(L) 4.58 - 5.54 x10(6)/mc L [facility] Hemoglobin 6.9(L) 13.7 - 16.5 g/dL [facility] Hematocrit 20.8(L) 40.5 - 48.5 % [facility] Mean Cell Volume 98.6(H) 82.9 - 93.1 [facility] Mean Cell Hemoglobin 32.7(H) 27.5 - 32.1 pg [facility] Mean Cell Hemoglobin Concentration 33.2 32.0 - 35.7 g/dL [facility] Platelet 255 145 - 357 x10(3)/[facility] RDW Standard Deviation 47.7(H) 36.0 - 45.0 [facility] RDW coefficient of variation 13.4 11.4 - 13.8 % [facility] Mean Platelet Volume 10.7 7.6 - 12.9 [facility] NRBC% auto 0.0 % [facility] NRBC Absolute 0.000 0.000 - 0.000 x10(3)/[facility] Blood 05/31/2022 12:4 4 PM EDT 05/31/2022 12:57 PM EDT Narrative Resulting Agency Comment Spec In Lab Brittany Ramirez MD HEMATOLOGY ORDERABLE S [facility] [place] [address] * (ABNORMAL) BLOOD GAS 2 VENOUS (05/31/2022 11:24 AM EDT) pH, Venous 7.38 7.32 - 7.42 [facility] PCO2, Venous 40(L) 41 - 51 mmHg [facility] PO2, Venous 18(L) 25 - 40 mmHg [facility] Bicarbonate, Venous 23.3 mmol/L [facility] Base Excess, Venous -1.8 mmol/L [facility] Hgb Blood Gas 7.0(L) 13.7 - 16.5 g/dL [facility] Oxyhemoglobin, Venous 24.3 % [facility] Carboxyhemoglob in, Venous 1.4 % [facility] Comment: Nonsmokers: 0.5-1.5% COHB Smokers: Variable, but usually less than 10% Toxic: 20-30% COHB Lethal: Greater than 60% COHB Methemoglobin, Venous 1.7(H) <=1.5 % [facility] Na Whole Blood [...] Whole Bld 204(H) 65 - 199 mg/dL [facility] Comment:Diabetes: >=200 mg/d L plus symptoms Lactate WB 1.4 0.5 - 2.2 mmol/L [facility] Blood Gas Source Venous [facility] Blood 05/31/2022 11:2 4 AM EDT 05/31/2022 11:24 AM EDT Dominique Hinds MD POINT OF CARE TEST O RDERABLES [facility] [place] [address] * TSH Proctor (05/31/2022 11:20 AM EDT) Thyroid Stimulating Hormone 1.67 0.27 - 4.20 mcIU/mL [facility] Comment: Reference Interval (mcIU/mL): Females: ??First Trimester: 0.23-3.88 ??Second Trimester: 0.22-3.90 ??Third Trimester: 0.44-4.66 Blood 05/31/2022 11:2 0 AM EDT 05/31/2022 11:28 AM EDT Narrative Resulting Agency Comment Spec In Lab Dominique Hinds MD CHEMISTRY ORDERABLES [facility] [place] [address] * XR Chest PA & Lateral (Generic) [...] questions please contact the health day care aide that requested your imaging first. ? Electronically signed by: Alan Brink MD, [facility] ([phone]), at 05/31/2022 11:33 AM Narrative 05/31/2022 11:33 [...] patients who have questions please contactthe health day care aide that requested your imaging first. Dominique Hinds MD IMG DX ORDERABLES * Lipase (05/31/2022 10:50 AM EDT) Lipase 41 0 - 60 unit/L [facility] Blood Venous Draw / Unknown 05/31/2022 10:50 AM EDT 05/31/2022 11:11 AM EDT Narrative Resulting Agency Comment Spec In Lab Zain Champion MD CHEMISTRY ORD ERABLES [facility] [place] [address] * (ABNORMAL) Hepatic Function Panel (05/31/2022 10:50 AM EDT) Protein, Total 6.4 6.1 - 8.0 g/dL [facility] Albumin 4.1 3.2 - 5.2 g/dL [facility] Aspartate Aminotransferase 24 0 - 39 unit/L [facility] Alanine Aminotransferase 44 0 - 55 unit/L [facility] Alkaline Phosphatase 63 40 - 130 unit/L [facility] Bilirubin, Total <0.2(L) 0.2 - 1.3 mg/dL [facility] Bilirubin, Direct 0.1 0.0 - 0.3 mg/dL [facility] Blood Venous Draw / Unknown 05/31/2022 10:50 AM EDT 05/31/2022 11:11 AM EDT Narrative Resulting Agency Comment Spec In Lab Zain Champion MD CHEMISTRY ORD ERABLES Performing Organization Address City/[facility]/ZIP Co de Phone Number [facility] [place] [address] * Blue Tube HOLD (05/31/2022 10:50 AM EDT) Blue Hold Sample in lab. [facility] Blood Venous Draw / Unknown 05/31/2022 10:50 AM EDT 05/31/2022 11:05 AM EDT Brittany Ramirez MD HEMATOLOGY ORDERABLE S [facility] [place] [address] * (ABNORMAL) Differential, Automated (05/31/2022 10:50 AM EDT) Pathologist [facility] Neutrophil % 66.9 % [facility] Neutrophil Absolute 5.58 1.70 - 6.10 x10(3)/mc L [facility] Lymph % 22.2 % [facility] Lymphocytes Abs 1.8 0.9 - 3.2 x10(3)/mc L [facility] Monocyte % 7.8 % [facility] Monocyte Abs 0.6 0.3 - 0.9 x10(3)/mc L [facility] Eos % 1.2 % [facility] Eosinophils Abs 0.1 0.0 - 0.4 x10(3)/ L [facility] Basophil % 0.7 % [facility] Baso Absolute 0.1 0.0 - 0.1 x10(3)/mc L [facility] Immature Gran % 1.20 % [facility] Comment: Immature granulocytes(IG's)percentage and absolute count will include metamyelocytes, myelocytes, and promyelocytes. Blood smears from CBCs yielding IG's will be scanned manually for concordance. If this scan disagrees with the automated IG or if promyelocytes are noted, a manual differential will be performed. Immature Gran Absolute 0.10(H) 0.00 - 0.04 x10(3)/mc L [facility] Blood 05/31/2022 10:5 0 AM EDT 05/31/2022 11:03 AM EDT Narrative Resulting Agency Comment Spec In Lab Brittany Ramirez MD HEMATOLOGY ORDERABLE S [facility] [place] [address] * (ABNORMAL) Hemogram (05/31/2022 10:50 AM EDT) White Blood Cell 8.3 4.0 - 9.5 x10(3)/ L [facility] Red Blood Cell 2.26(L) 4.58 - 5.54 x10(6)/mc L [facility] Hemoglobin 7.4(L) 13.7 - 16.5 g/dL [facility] Hematocrit 22.3(L) 40.5 - 48.5 % [facility] Mean Cell Volume 98.7(H) 82.9 - 93.1 fL [facility] Mean Cell Hemoglobin 32.7(H) 27.5 - 32.1 pg [facility] Mean Cell Hemoglobin Concentration 33.2 32.0 - 35.7 g/dL [facility] Platelet 283 145 - 357 x10(3)/[facility] RDW Standard Deviation 47.0(H) 36.0 - 45.0 [facility] RDW coefficient of variation 13.4 11.4 - 13.8 % [facility] Mean Platelet Volume 10.8 7.6 - 12.9 [facility] NRBC% auto 0.0 % [facility] NRBC Absolute 0.000 0.000 - 0.000 x10(3)/ L [facility] Blood 05/31/2022 10:5 0 AM EDT 05/31/2022 11:03 AM EDT Narrative Resulting Agency Comment Spec In Lab Brittany Ramirez MD HEMATOLOGY ORDERABLE S [facility] [place] [address] * Phosphorus (05/31/2022 10:50 AM EDT) Pathologist [facility] Phosphorus 3.2 2.5 - 4.5 mg/dL [facility] Blood 05/31/2022 10:5 0 AM EDT 05/31/2022 11:03 AM EDT Narrative Resulting Agency Comment Spec In Lab Dominique Hinds MD CHEMISTRY ORDERABLES [facility] [place] [address] * Magnesium (05/31/2022 10:50 AM EDT) Magnesium 0.93 0.69 - 1.07 mmol/L [facility] Blood 05/31/2022 10:5 0 AM EDT 05/31/2022 11:03 AM EDT Narrative Resulting Agency Comment Spec In Lab Dominique Hinds MD CHEMISTRY ORDERABLES Performing Organization Address City/[facility] Co de Phone Number [facility] [place] [address] * (ABNORMAL) pro-Brain Natriuretic Peptide (05/31/2022 10:50 AM EDT) Pathologist [facility] NT-proBNP 1,077(H) <=449 pg/mL [facility] Blood 05/31/2022 10:5 0 AM EDT 05/31/2022 11:03 AM EDT Narrative Resulting Agency Comment Spec In Lab Dominique Hinds MD CHEMISTRY ORDERABLES Performing Organization Address City/[facility]/ZIP Co de Phone Number [facility] [place] [address] * Troponin (05/31/2022 10:50 AM EDT) Troponin-T <0.01 0.00 - 0.00 ng/mL [facility] Comment: The 99th [...] ischemia ?? New or presumed new significant DE-[id number] wave (ST-T) changes or new left bundle [...] additional sample may be indicated. Reference: Third Litt[place]arr Definition of Myocardial Infarction. Journal of the [place] [employer] 2012;60:1581-98 Blood 05/31/2022 10:5 0 AM EDT 05/31/2022 11:03 AM EDT Narrative Resulting Agency Comment Spec In Lab Dominique Hinds MD CHEMISTRY ORDERABLES [facility] [place] [address] * (ABNORMAL) Basic Metabolic Panel (non-fasting) (05/31/2022 10:50 AM EDT) Glucose 223(H) 65 - 199 mg/dL [facility] Comment:Diabetes: >=200 mg/d L plus symptoms Blood Urea Nitrogen 39(H) 10 - 20 mg/dL [facility] questions. Chloride 107 98 - 107 mmol/L [facility] Carbon Dioxide 23 22 - 31 mmol/L [facility] Anion Gap 10 5 - 15 mmol/L [facility] Calcium 9.1 8.5 - 10.5 mg/dL [facility] Est Glomerular Filtration Rate 86 >=60 mL/min/1. 73 m?? [facility] Comment: [...] In Lab Dominique Hinds MD CHEMISTRY ORDERABLES [facility] [place] [id number] * EKG 12 Lead (05/31/2022 10:11 AM EDT) Ventricular rate 106 BPM MUSE SYSTEM QRS Duration 122 ms MUSE SYSTEM Q-T Interval 368 ms MUSE SYSTEM QTC Calculated (Bezet) 488 ms MUSE SYSTEM Calculated R Crosby -43 degrees MUSE SYSTEM Calculated T Crosby 109 degrees MUSE SYSTEM INTERPRETATION Atrial fibrillation [...] interpretation Confirmed by fellow MD Mike, [place] ([id number]) on 06/02/2022 8:36:21 PM Confirmed by MD KENDRICK, ABBY ([id number]) on 06/03/2022 5:04:32 PM MUSE SYSTEM 05/31/2022 10:1 1 AM EDT 06/03/2022 5:04 PM EDT Dominique Hinds MD ECG ORDERABLES [employer] SYSTEM documented in this encounter Visit Diagnoses [...] 20 mg, Oral, DAILY, First dose on [place] 06/02/22 at 1115, Until Discontinued, Routine, Restricted [...] Barbour RN) 08 (Given - Provider: Trinidad Seanz RN) 0812 (Given - Provider: Trinidad Saenz [...] Comment: [facility] 1.05)1255 (Restarted - Provider: Trinidad Sanez RN)1951 (Rate/Dose Change - Provider: Raven Barbour [...] documented in this encounter Care Teams Dry Cleaning Machine Operator Helper Relationship Specialty Start Date End Date Lippmann, Abby, MD [address] [place] [address] [place] [phone] PCP - General 10/02/10 documented as of this encounter
--- OUTSIDE RECORDS SUMMARY | 2024-09-30 17:03 | XMS_ITS | Encounter Summary ---
Author Organization [facility] Address [facility] [place] [address] Care Team Providers Care Insurance Adjustor Name Role Phone Bobby Das MD Primary Care Provider [phone] Encounter Details Date Type Department Care Team (Late st Contact Info) Description 05/31/2022 9:30 AM EDT Office Visit [place] [address] Jing Ghosh, SATE[employer]LEVISION INST[employer]ER [facility] [place] [address] Dizzy; Atrial fibrillation, unspecified type; SOB (shortness [...] onset Afib who presents in transfer from [facility] with acute limb ischemia of [...] service with ALI and emergently went to [facility] for L INSPECTOR SUBASSEMBLIES transverse arteriotomy and primary repair, thromboembolectomy of L SFA/PFA/INSPECTOR SUBASSEMBLIES, reperfusion venous drainage for 250 cc, and [...] ND, no palpable pulsatile masses Extremity - [place], warm, no ulceration, brisk capillary refill, left [...] breath documented in this encounter Care Teams Insurance Adjustor Relationship Specialty Start Date End Date Bobby Das MD [address] [place] [address] [place] [phone] PCP - General 10/02/10 documented as of this encounter
--- OUTSIDE RECORDS SUMMARY | 2024-09-30 17:04 | XMS_ITS | Encounter Summary ---
[place] [address] Care Team Providers Care R D Engineer Name Role Phone Bobby Das MD Primary Care Provider [phone] Reason for Visit * Auth/Cert Specialty Diagnoses / Procedures Referred By Colby quezada Referred To Contact Diagnoses Limb ischemia LLE thrombus Fito Summers MD [facility] [place] [address] [facility] Referral ID Status Reason Start Date Expiration Date Visits Re quested Visits Authorized [id number] 1 1 Encounter Details Date Type Department Care Team (Late st Contact Info) Description 05/15/2022 1:20 PM EDT Anesthesia Event [place] [address] Cari Ventura MD [facility] DR [place] [address] Duong Aguillon CRNA [facility] [place] [address] Anesthesia Record Procedure Summary Procedure Name Responsible [...] 1204; median cubital vein (antecubital fossa), left; iimd-gbn-wqioom catheter system; 18 gauge; OSH; site care per policy/procedure, site symptomatic, removed per policy/procedure, catheter/device intact; 05/16/22; 1117 05/15/22 1204 by Marcia Dimas RN 05/16/22 1117 by Hilton Suarez RN (RETIRED) Peripheral IV Line - Single Lumen 05/15/22; 1204; median cubital vein (antecubital fossa), right; fkvn-prn-mbazsd catheter system; 18 gauge; OSH; 05/16/22; 0738 05/15/22 1204 by Marcia Dimas RN 05/16/22 0738 by Sary Dos Santos RN ETT Removal Date: ; Removal Time: 1648 05/15/22 1340 by Torres Aguilar, SUPERINTENDENT PRESSURE 05/15/22 1648 by Torres Aguilar, SUPERINTENDENT PRESSURE Urethral Catheter 05/15/22; 1340; Surg himanshu longer [...] 05/15/22; 1700 05/15/22 1341 by Torres Aguilar, SUPERINTENDENT PRESSURE 05/15/22 1700 by Dottie Gutierrez RN Incision [...] Procedure Summary Date: 05/15/22 Room / Location: [facility] OR [address] [place] [address] MAIN OR Anesthesia Start: 1320 Anesthesia Stop: 1633 Procedure: EMBOLECTOMY OR THROMBECTOMY, FEMOROPOPLITEAL, AORTOILIAC ARTERY BY LEG INCISION (VU 19.48) (Left ) Diagnosis: (Acute Limb Ischemia) Surgeons: Fito Summers MD Responsible Provider: Cari Ventura MD Anesthesia Type: general ASA Status: 3 - Emergent All Anesthesia Providers: Anesthesiologist: Cari Ventura MD SUPERINTENDENT PRESSURE: Torres Aguilar CRNA Vitals Value Taken Time BP 108/69 05/15/22 1715 Temp 36.3 ??C (97.3 ??F) 05/15/22 1633 Pulse 110 05/15/22 1719 Resp 16 05/15/22 1719 SpO2 89 % 05/15/22 1719 Pain Level Vitals shown include unvalidated device data. Patient Location: PACU/[facility] Level of Consciousness: Awake and Alert [...] Biopsy Spine 07/20/2019 Bobby Marshall MD [facility] INTERVENTIONL RAD ??? IR VERTEBROPLASTY LUMBAR MULTIPLE LEVELS 07/20/2019 IR Vertebroplasty Lumbar Multiple Levels 07/20/2019 Bobby Marshall MD [facility] INTERVENTIONL RAD ??? IR VERTEBROPLASTY THORACIC SINGLE LEVEL 10/25/2020 IR Vertebroplasty Thoracic Single Level 10/25/2020 Matt Chisholm MD [facility] INTERVENTIONL RAD Social History Tobacco [...] a(n) intravenous induction 81 yo current and fci smoker with significant daily etoh use (6 [...] with patient who. Plan discussed with SUPERINTENDENT PRESSURE. Anesthesia Screening documented in this encounter Plan [...] mg documented in this encounter Care Teams R D Engineer Relationship Specialty Start Date End Date Bobby Das MD [address] [place] [address] [place] [phone] PCP - General 10/02/10 documented as of this encounter
--- OUTSIDE RECORDS SUMMARY | 2024-09-30 17:04 | XMS_ITS | Encounter Summary ---
Author Organization Count Includes [facility] [address] Care Team Providers Care Teacher Associate Name Role Phone Bobby Das MD Primary Care Provider [phone] Reason for Referral * Consultation (Routine) - Closed Specialty Diagnoses / Procedures Referred By Contac t Referred To Contact Diagnoses Non-ST elevation myocardial infarction (NSTEMI) Limb ischemia Nasrin Parra PA [facility] [place] [address] [facility] [place] [address] Referral ID Status Reason Start Date Expiration Date V isits Requested Visits Authorized [id number] Closed Consult, Test & Treat 05/21/2022 05/21/2023 1 1 * Diagnostic Test (Routine) - Closed Specialty Diagnoses / Procedures Referred By Contac t Referred To Contact Cardiology Diagnoses Paroxysmal atrial fibrillation Procedures Ziopatch 48 Hrs-15 Days Nasrin Parra PA [facility] [place] [address] [facility] [place] [address] Referral ID Status Reason Start Date Expiration Date V isits Requested Visits Authorized [id number] Closed Specialty Service Requested 05/21/2022 10/21/2022 1 1 * Consultation (Routine) - Closed Specialty Diagnoses / Procedures Referred By Colby quezada Referred To Contact Cardiology Diagnoses HFrEF (heart failure with reduced ejection fraction) Paroxysmal atrial fibrillation Post-hospital follow-up, s/p PCI with stenting, heart failure Nasrin Parra PA [facility] [place] [address] [facility] [address] [place] [phone] Referral ID Status Reason Start Date Expiration Date V isits Requested Visits Authorized [id number] Closed Consult, Test & Treat 05/21/2022 05/21/2023 1 1 * Diagnostic Test (Routine) - Closed Specialty Diagnoses / Procedures Referred By Colby quezada Referred To Contact Diagnoses Limb ischemia Procedures JOSSELYN, legs, multiple levels Nasrin Parra PA [facility] [place] [address] [facility] Vascular [place] [address] [address] Referral ID Status Reason Start Date Expiration Date V isits Requested Visits Authorized [id number] Closed Specialty Service Requested 05/21/2022 05/21/2023 1 1 * Home Health Care (Routine) - Closed Specialty Diagnoses / Procedures Referred By Colby quezada Referred To Contact Diagnoses Limb ischemia Fito Summers MD [facility] [place] [address] [facility] & [address] [place] [address] Referral ID Status Reason Start Date Expiration Date V isits Requested Visits Authorized [id number] Closed Consult, Test & Treat 05/21/2022 11/17/2022 999 999 Reason for Visit * Reason Comments Left Leg Pain * Auth/Cert Specialty Diagnoses / Procedures Referred By Contac t Referred To Contact Diagnoses Limb ischemia LLE thrombus Fito Summers MD [facility] [place] [address] [facility] Referral ID Status Reason Start Date Expiration Date Visits Re quested Visits Authorized [id number] 1 1 Encounter Details Date Type Department Care Team (Late st Contact Info) Description 05/15/2022 10:15 AM EDT - 05/21/2022 3:15 PM EDT Hospital Encounter Intermediate [place] [address] Fito Summers MD [facility] [place] [address] Wellington Jean MD [facility] [place] [address] Atrial fibrillation, unspecified type; Non-ST elevation myocardial [...] Afib who presents in transfer from [facility] with acute limb ischemia of [...] [facility] for L 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 transverse arteriotomy and primary repair, thromboembolectomy of L SFA/PFA/BLAST 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, reperfusion venous drainage for 250 cc, [...] Discharge Condition: Good Discharge to: Home with [facility] [address] [address] Future Appointments and Orders Future Appointments and Orders Future Appointments Provider Department Dept Phone 05/23/2022 10:30 AM Loretta Cohen MD Dermatology at [facility] Arrive at: Supervisor Advice [address] [place] [address] 06/07/2022 1:30 PM Gail Rae APRN Vascular Surgery at [facility] Arrive at: Supervisor Advice Area 06/13/2022 7:30 AM Edson Lagos [place] Vascular Lab at [facility] Arrive at: Supervisor Advice Area 3V [phone] 06/13/2022 8:00 AM Fito Summers MD Vascular Surgery at [facility] Arrive at: Supervisor Advice Area 3V [phone] 06/13/2022 10:00 AM Alan eRid MD Cardiology at [facility] Arrive at: Supervisor Advice Area [phone] Future Orders Complete By Expires Ziopatch 48 Hrs-15 Days [[id number] CPT(R)] 05/21/2022 11/20/2022 Process Instructions: Scheduling Instructions: Comments: Questions: Does the patient have a pacemaker? If yes provide HI/LO settings: Apply for 7 or 14 days?: 7 Where will study be performed?: [facility] JOSSELYN, legs, multiple levels [VAS8 Custom] 06/21/2022 (Approximate) 12/21/2022 Process Instructions: There is no in-house vascular laboratory animal caretaker available on weeknights (5pm-8am), weekends, or holidays. IF THIS IS A REQUEST FOR AN EMERGENT STUDY DURING THOSE HOURS, please have the senior provider responsible for the patient page the Vascular Surgery Fellow/Senior Resident decision science analyst to discuss options. Scheduling Instructions: Questions: Indication for study/signs & symptoms: ALI s/p L fem cutdown with thromboembolectomy Question to be answered: Perfusion to feet? Please check toe pressure Preferred location?: [facility] Clinics Referral to [...] Koko Bah for admission to Home Health. [address] [place] [phone] (home) Date of : 1940 Inpatient DOCUMENTATION FOR VNA SERVICES (INCLUDING THOSE PATIENTS WITH MEDICARE COVERAGE REQUIRING HOME VNA SERVICES AND/OR HOSPICE SERVICES) PATIENT'S LOCATION: Koko Bah [address] [facility] [place] [address] (home) Cell: No relevant phone numbers on file. Benzene Operator's Name: Koko In discussion with the attending physician, it is certified that this patient is under their care and that they, or a Nurse Practitioner,Clinical Nurse specialist or Physician [place] Operator who is working directly with them, [...] managing ADL's. HOME HEALTH CARE AGENCY: [facility] [address] [address] Start of care: Within 24 to 48 [...] from this patient's PCP: Bobby Das MD [address] [place] [address] / [place] [address] All VNA agencies which [...] For any problems or questions please call [phone] For issues on weeknights after 5pm and weekends please call [phone] and ask for the Vascular Fellow decision science analyst. JOSEE Santiago Vascular Surgery 05/21/2022 documented in [...] For any problems or questions please call [phone] For issues on weeknights after 5pm and weekends please call [phone] and ask for the Vascular Fellow decision science analyst. documented in this encounter Medications at Time of Discharge Medication Sig Dispensed Refills Start Date End Date fluticasone propionate (FLONASE) 50 mcg/actuation [place], Suspension 1 spray by Each Nare route [...] Afib who presents in transfer from [facility] with acute limb ischemia of [...] status, full code. JOSEE Santiago 05/21/2022 Pager: [phone] * Brannon Isaacs - 05/21/2022 10:35 AM [...] plan as stated. Time IN / OUT: 3241-5153 Total Minutes, Physical Therapy: 25 Billing Code: 2 [place]ON Isaacs DPT Pager: [phone] Physical Therapy Inpatient Rehabilitation Department * Wellington [...] and Spine Center at [facility] Weight 79.8 kg [...] Case discussed with Dr Jean. We will Tde to follow. Please page with any further questions or concerns. Kerry Mcnamara MD Cardiovascular Medicine PGY-5 05/21/2022 Cardiology Staff - Consult Note Addednum / Progress Note This patient was seen and examined on rounds with the cardiology consult team. I agree with the findings and plan of care per Dr. Mcnamara (online affiliate marketing manager). 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 [...] to Hosp-Admission (Current) from 05/15/[address] [place] [address] Office Visit from 04/17/2021 in Pain and Spine Center at [facility] Weight 79.8 kg [...] and plan of care per Dr. Mcnamara (online affiliate marketing manager). Please refer to her note above [...] in 2000 (not at [facility])with no CAD at [...] first documented HR at [facility] was 125 bpm [...] Afib who presents in transfer from [facility] with acute limb ischemia of [...] management following Dottienikhil Hill APRN 05/20/2022 Pager: [phone] * Laney Atkins RN - 05/20/2022 1:14 [...] off to [facility] RN * Dottie Hill APRN - 05/19/2022 10:02 AM EDT Vascular Surgery Progress Note Koko Bah is a 81 y.o. male with w new onset Afib who presents in transfer from [facility] with acute limb ischemia of [...] management following Dottie Hill APRN 05/19/2022 Pager: [phone] * Emily Sauceda RN - 05/19/2022 6:28 AM EDT OUTCOME EVALUATION NOTE: OUTCOME SUMMARY: Patient AOx4, VSS on RA. Afib on tele. HR controlled w/ PRN metop, given x2. Denies CP, SOB, n/v. See flowsheets for NVC. Dressings to LLE CDI, prevena WV to groin intact. Voiding to urinal. LBM CANDY DEPARTMENT MANAGER,patient stating he will maybe try the laxative [...] adequately without difficulty to bedside urinal. LBM CANDY DEPARTMENT MANAGER.Up to chair this AM with nursing staff. Worked with PT, tolerated well. Diet changed to regular at 1800. Plan is for cardiac cath on Friday. PLAN MOVING FORWARD: Bleeding precautions Pain management neurovascular checks PT/OT slab depiler operator INDIVIDUALIZED FALL PREVENTION INTERVENTIONS: Patient-specific fall [...] Afib who presents in transfer from [facility] with acute limb ischemia of [...] mL Intravenous BID ??? PHENobarbitaL 0.12 mg/kg/dose ([place]) Oral BID ??? thiamine 100 mg Oral [...] management following Dottie Hill APRN 05/18/2022 Pager: [phone] * Brannon Isaacs - 05/18/2022 10:00 AM [...] outlinedin this evaluation. Time IN / OUT: 6216-3442 Total Minutes, Physical Therapy: 30 Billing Code: Basilio Isaacs, PT Pager: [phone] Physical Therapy Inpatient Rehabilitation Department * Emily Sauceda RN - 05/18/2022 4:34 AM EDT OUTCOME EVALUATION NOTE: OUTCOME SUMMARY: Patient AOx4, VSS on 2LNC. Afib on tele. HR above 120, MD aware, PRN IV metop given x1, HR returnedto 90's-low 100's. Denies CP, SOB, n/v. See flowsheets for NVC. Dressings to LLE CDI, prevena WV togroin intact. Voiding to urinal. LBM CANDY DEPARTMENT MANAGER. Heparin gtt therapeutic. Pain controlled. Patient [...] adequately without difficulty to bedside urinal. LBM CANDY DEPARTMENT MANAGER. Patient not OOB this shift. Currently NPO awaiting procedure in manager cardiac cath. PLAN MOVING FORWARD: Bleeding precautions Pain management neurovascular checks PT/OT NPO for manager cardiac cath INDIVIDUALIZED FALL PREVENTION INTERVENTIONS: Patient-specific fall risk [...] 05/17/2022 2:40 PM EDT Physical Therapy 05/17/22 2470 Evaluation & Treatment Document Type contact Total Minutes, Physical Therapy 10 Comment, Session Not Performed Orders recieved on Koko Bah who is a 81 y.o male with historyof atrial fibrillation not on anticoagulation, and GI bleeding who presented to the Emergency Department as a transfer from [facility] with left lower extremity limb ischemia. He went to [facility] and was started on heparin and transferred to [facility] for evaluation by vascular surgery with [...] he will will be going to the manager cardiac cath for evaluation. Will defer PT eval at present but will see as ordered post cardiac catheritizaton. Social Hx:Pt lives with his Ursula in [place], [place] in a 2 level home in [...] WBAT LLE LISBET MORELOS, PT Pager # [phone] In-Pt Rehab Medicine * Dottie Hill, SENIOR QUALITY ASSURANCE ENGINEER - 05/17/2022 7:42 AM EDT Vascular Surgery Progress Note Koko Bah is a 81 y.o. male with w new onset Afib who presents in transfer from [facility] with acute limb ischemia of [...] mL Intravenous BID ??? PHENobarbitaL 0.24 mg/kg/dose ([place]) Oral BID Followed by ??? [START ON 05/18/2022] PHENobarbitaL 0.12 mg/kg/dose ([place]) Oral BID ??? thiamine 100 mg Oral [...] planning care management following Dotite Hill APRN 05/17/2022 Pager: [phone] * Sary Dos Santos RN - 05/17/2022 [...] Afib who presents in transfer from [facility] with acute limb ischemia of [...] mL Intravenous BID ??? PHENobarbitaL 0.48 mg/kg/dose ([place]) Oral BID Followed by ??? [START ON 05/17/2022] PHENobarbitaL 0.24 mg/kg/dose ([place]) Oral BID Followed by ??? [START ON 05/18/2022] PHENobarbitaL 0.12 mg/kg/dose ([place]) Oral BID ??? thiamine 100 mg Oral [...] management following Edward Rodríguez MD 05/16/2022 Pager: [phone] * Sary Dos Santos RN - 05/16/2022 [...] 2129 Hand off to DION Ramirez 3 [place] documented in this encounter H&P Notes * [...] Afib who presents in transfer from [facility] with acute limb ischemia of [...] Refill ??? fluticasone propionate (FLONASE) 50 mcg/actuation [place], Suspension as needed. ??? fluorouraciL (EFUDEX) 5 [...] and consented. Tim Chicas MD 05/15/2022 Pager: [phone] documented in this encounter ED Notes * [...] was started on heparin and transferred to [facility] for evaluation by vascular surgery. Review [...] of the left lower extremity. Vascular surgery [facility] was contacted and he was transferred here [...] Arrival. Pt. Arrived at [facility] by EMS at [...] an outpatient cardiac rehabilitation program at [facility] was discussed. Patient agrees to a referral to this program. Timing will depend on his recovery from Vascular surgery. He is going home w/VNA PT. I gave him the brochure for the program at [facility] for future reference. * Care [...] information for follow-up Home Health & Hospice, [address] [facility] [address] Transportation: family or friend will provide Functional [...] Type: *No Product type* / Secondary Insurance: [facility] Prescription Coverage: Yes This plan was formulated with input from patient and team. All are in agreement with plan. IP RS has communicated with Oli - for initial BRENDAN. Shawn (Paulo López RN RN/CM - Cellphone: [phone] Pager: [phone] Covering Service RN/CM * Plan of Care [...] Type: *No Product type* / Secondary Insurance: [facility] Last Physical Therapy Recommendation: home with home health, home with supervision with None Last Occupational Therapy Recommendation: with Plan for discharge is: Home w/ Services Outpatient Agency/Support Group Needs: None Home Health Services: Registered Nurse, Physical Therapy, Occupational Therapy Agency Referrals: I have met with the patient to: ?? discuss discharge planning needs. ?? provide the [facility], Office of Care Management letter from the Supervisor [employer] pertaining to rehabreferrals. ?? provide a letter describing our affiliations within the [facility] and educate about their right to choose where referrals are sent. ?? provide a list of Home Health Agencies / Durable Medical Equipment vendors which serve their preferred geographic area. ?? provided patient with [facility] Star Quality Rating handout. They have requested referrals to: [facility] [employer]. [address] [place] [phone] Note routed to a Shoe Lacer who will communicate referrals to facilities and provide any required information. Transportation: family or friend will provide Barriers to discharge: None Plan going forward: Patient is going for a cardiac cath today and plan will come from there. Patient was recently seen by PT and they recommend VNA at time of discharge. [facility] was routed and pended at this time. Care Management will continue to follow and assist with discharge planning and coordination of care as indicated. Anticipated Date of Discharge: 05/21/2022 Nataly RICHMOND RN CM Phone: [phone] Pager: [phone] * Plan of Care - Laney Atkins [...] included. [facility] [place] [address] INPATIENT CARDIOLOGY CONSULT NOTE Date of Consultation: 05/17/2022 Admit Date: 05/15/2022 Hospital Day 2 days Reason for Consult: New afib Active Problems: Active Hospital Problems Diagnosis Limb ischemia Resolved Hospital Problems No resolved problems to display. HPI: Koko Bah is a 81 y.o. male with a PMHx significant for MVP (s/p MV repair 2000), tobacco use, HLD, who presented to [facility] from OSH on 05/15 with acute limb ischemia of LLE and was found to bein atrial fibrillation. Patient had sudden onset LLE pain on 05/15 and presented to [facility], where he was started on heparin and transferred to [facility]. Upon arrival to [facility], patient was in [...] mouth daily. fluticasone propionate (FLONASE) 50 mcg/actuation [place], Suspension as needed. ascorbic acid, vitamin C, [...] 5 mL Intravenous BID PHENobarbitaL 0.24 mg/kg/dose ([place]) Oral BID Followed by [START ON 05/18/2022] PHENobarbitaL 0.12 mg/kg/dose ([place]) Oral BID thiamine 100 mg Oral Daily folic acid 1,000 mcg Oral Daily multivitamin with minerals 1 tablet Oral Daily heparin (porcine) infusion 1,200 Units/hr (05/17/22 3030) Family History: No family history on file. [...] to Hosp-Admission (Current) from 05/15/2022 in [facility] Office Visit from 04/17/2021 in Pain and Spine Center at [facility] Weight 79.8 kg [...] continue to follow Anne-Marie Larson MD Pager [phone] Clinic: [phone] 05/17/22 6:22 PM * Initial Assessments - [...] patient receiving care at [facility] must abide by [place] law. The hierarchy [...] (i) The agent with financial power of compliance attorney or a conservator appointed in accordance [...] raised toilet seat Home Address confirmed as: [address] [place] [phone] Social & Family Supports: All names listed below confirmed with patient as Incorrect. Will notify oli to correct. Wifes address is same as and phone is [phone]. Extended Emergency Contact Information Primary Emergency Contact: Ursula Bah Address: [address] [place] [address] [facility] [place] Relation: Spouse Current Care Provided [...] Type: *No Product type* / Secondary Insurance: [facility] Prescription Coverage: Yes Preferred Pharmacy: [id number] - [place], [place] - [address] [facility] [address] [facility] [address] [id number] - [place], [place] - [address] [facility] [address] [facility] [address] Status: Patient is a : unable to assess Primary Care Provider: Bobby Das MD [phone] Patient/Caregiver Goals of Treatment: to walk again Potential Needs for Transition of Care: none noted per 05/16 IDR Transportation: family will provide Transportation Anticipated: family or friend will provide Concerns to be Addressed: no discharge needs identified Assessment: Patient is admitted to vascular surg service for left lower extremity limb ischemia Plan: Per PT OT recommendations . Has used [facility] [employer] in the past. A member of the Care Management team will continue to monitor progress, follow for continuity of care and assist with transition of care planning. Ifrah Bell RN BSN Housing CounselorInstructor Extension Work of Care Management Pager [phone] * Brief Op Note - Erin Garza MD - 05/15/2022 5:04 PM EDT Brief Operative Note Patient Name: Koko Bah : [id number] MR#: [id number] Case Date: 05/15/2022 Surgeon: Surgeon(s) and Role: [...] 05/15/2022 2:08 PM EDT [facility] Operative Note Patient Name: Koko Bah : [id number] MR#: [id number] Case Date: 05/15/2022 Surgeon: Surgeon(s) and Role: [...] for the procedure. Associated attestation - Fito Sumemrs MD - 05/22/2022 12:22 PM EDT Attestation: [...] PM EDT Emblc/Thrmbc Femoral Popliteal Aorto-Iliac Artery (93628) 05/15/2022 1:20 PM EDT Acute Limb Ischemia [...] multiple levels (06/13/2022 7:13 AM EDT) Pathologist [facility] Text Report Department: Vascular Surgery Lab Patient: [id number] (KOKO BAH) CPT: 30628 Referring Physician: FITO SUMMERS ?? Phone: Indications: s/p L BLAST 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 endart. Diabetes mellitus: no Findings: Right [...] 12:35 PM EDT) UF Heparin 0.42 IU/mL [facility] Comment: Heparin (anti-Xa) levels should [...] MD HEMATOLOGY ORDERABLE S Performing Organization Address City/[facility]/[place] [address] * Differential, Automated (05/21/2022 6:15 AM EDT) Neutrophil % 58.8 % [facility] Neutrophil Absolute 3.97 1.70 - 6.10 x10(3)/[facility] Lymph % 25.2 % [facility] Lymphocytes Abs 1.7 0.9 - 3.2 x10(3)/[facility] Monocyte % 12.9 % [facility] Monocyte Abs 0.9 0.3 - 0.9 x10(3)/[facility] Eos % 2.1 % [facility] Eosinophils Abs 0.1 0.0 - 0.4 x10(3)/[facility] Basophil % 0.4 % [facility] Baso Absolute 0.0 0.0 - 0.1 x10(3)/[facility] Immature Gran % 0.60 % [facility] Comment: Immature granulocytes(IG's)percentage and absolute count will include metamyelocytes, myelocytes, and promyelocytes. Blood smears from CBCs yielding IG's will be scanned manually for concordance. If this scan disagrees with the automated IG or if promyelocytes are noted, a manual differential will be performed. Immature Gran Absolute 0.04 0.00 - 0.04 x10(3)/[facility] Blood 05/21/2022 6:15 AM EDT 05/21/2022 6:38 AM EDT Narrative Resulting Agency Comment Spec In Lab Edward Rodríguez MD HEMATOLOGY ORDER NICK Performing Organization Address City/[facility]/ZIP Co de Phone Number [facility] [place] [address] * (ABNORMAL) Hemogram (05/21/2022 6:15 AM EDT) Pathologist [facility] White Blood Cell 6.8 4.0 - 9.5 x10(3)/ L [facility] Red Blood Cell 3.59(L) 4.58 - 5.54 x10(6)/[facility] Hemoglobin 11.8(L) 13.7 - 16.5 g/dL [facility] Hematocrit 34.5(L) 40.5 - 48.5 % [facility] Mean Cell Volume 96.1(H) 82.9 - 93.1 [facility] Mean Cell Hemoglobin 32.9(H) 27.5 - 32.1 pg [facility] Mean Cell Hemoglobin Concentration 34.2 32.0 - 35.7 g/dL [facility] Platelet 198 145 - 357 x10(3)/[facility] RDW Standard Deviation 44.9 36.0 - 45.0 [facility] RDW coefficient of variation 12.6 11.4 - 13.8 % [facility] [facility] Mean Platelet Volume 10.0 7.6 - 12.9 [facility] LABORATORY NRBC% auto 0.3 % [facility] NRBC Absolute 0.020(H) 0.000 - 0.000 x10(3)/[facility] LABORATORY Blood 05/21/2022 6:15 AM EDT 05/21/2022 6:38 AM EDT Narrative Resulting Agency Comment Spec In Lab Edward Rodríguez MD HEMATOLOGY ORDER NICK [facility] [place] [address] * EKG 12 Lead (05/20/2022 7:04 PM EDT) Ventricular rate 101 BPM MUSE SYSTEM QRS Duration 116 ms MUSE SYSTEM Q-T Interval 378 ms MUSE SYSTEM QTC Calculated (Bezet) 490 ms MUSE SYSTEM Calculated R [place] -53 degrees MUSE SYSTEM Calculated T [place] 101 degrees MUSE SYSTEM INTERPRETATION Atrial fibrillation [...] EDT ?[facility] ? Cardiac Catheterization/Intervention Report ? Patient Name: Koko Bah. ? Procedure Date: 05/20/2022 ? A #: [id number] ? Primary Physician: Abundio Servin ? Case #: [id number] ? File Name: [id number] ? Catheterization Order Number: [id number] ? [facility] ? Final Report [place], [place] ? Patient Name: ? Koko Sullivan. Bah ? ID#: ?[id number] ? : ?1940 ? Procedure Date: ? [...] was designated as ASA Class IV. The [facility] clinical ?frailty scale is 3: Managing [...] procedure was Urgent. The indication for ?the manager cardiac cath visit is cardiomyopathy. Chest pain symptom assessment [...] ?3.5 guiding catheter and a 3.5 Fr [facility] [place] [facility] [address] ??20 Mhz. ??Imaging ?was successful. [...] A premounted 2.75 x 30 mm Rudy Ulysses (AMPARO) was deployed ? with a maximum [...] of this regimen. Consult [facility] Interventional Cardiology for [...] Abundio Servin MD - 07/12/2022 [facility] Cardiac Catheterization/Intervention Report Patient Name: Koko Bah Procedure Date: 05/20/2022 A #: [id number] Primary Physician: Abundio Servin Case #: File Name: [id number] Catheterization Order Number: [id number] [facility] FinalReport [place], [place] Patient Name: Koko Bah ID#:[id number] :1940 Procedure Date: May 20, 2022 Case [...] diagnostic procedure was Urgent. The indicationfor the manager cardiac cath visit is cardiomyopathy. Chest pain symptom assessmentwas: [...] 3.5 guiding catheter and a 3.5 Fr [facility] [place] [facility] [address] 20 Mhz.Imaging was successful. Image [...] The lesion was predilated with a 2.00mm [id number] MM balloon with a maximum inflation pressure of 12atmospheres. A premounted 2.75 x 30 mm [place] Ulysses (AMPARO) wasdeployed with a maximum inflation pressure [...] of this regimen. Consult [facility] Interventional Cardiologyfor questions. [...] * POCT Glucose (05/20/2022 5:42 PM EDT) [facility] Glucose, POC 123 65 - 199 mg/dL [facility] Comment: Supplemental ranges: <140 mg/dL before meals <180 mg/dL all other times of the day Blood 05/20/2022 5:42 PM EDT 05/20/2022 5:42 PM EDT Fito Summers MD POINT OF CARE TEST O RDERABLES [facility] [place] [address] * (ABNORMAL) BMP w/fasting Glucose (05/20/2022 10:50 AM EDT) Glucose Fasting 152(H) 65 - 99 mg/dL [facility] Comment: ?Fasting* Glucose Interpretive Criteria [...] of Diabetes Mellitus, Position Statement from the [place] [employer]. ??Diabetes Care, Volume 33, Supplement 1, Nov 2009 Blood Urea Nitrogen 11 10 - 20 mg/dL [facility] Creatinine 0.63(L) 0.80 - 1.50 mg/dL [facility] [...] questions. Chloride 103 98 - 107 mmol/L [facility] Carbon Dioxide 24 22 - 31 mmol/L [facility] Anion Gap 10 5 - 15 mmol/L [facility] Calcium 8.7 8.5 - 10.5 mg/dL [facility] Est Glomerular Filtration Rate 97 [...] Summers MD CHEMISTRY ORDERABLES Performing Organization Address [facility]/ZIP Co de Phone Number [facility] [place] [address] * Heparin (unfractionated) Level (05/20/2022 5:02 AM EDT) UF Heparin 0.57 IU/mL [facility] Comment: Heparin (anti-Xa) levels should [...] MD HEMATOLOGY ORDERABLE S Performing Organization Address City/[facility]/ZIP Co de Phone Number [facility] [place] [address] * (ABNORMAL) Differential, Automated (05/20/2022 5:02 AM EDT) Neutrophil % 58.1 % [facility] Neutrophil Absolute 4.52 1.70 - 6.10 x10(3)/[facility] LABOR[facility]ORY Lymph % 24.1 % [facility] Lymphocytes Abs 1.9 0.9 - 3.2 x10(3)/[facility] LABOR[facility]ORY Monocyte % 13.8 % [facility] Monocyte Abs 1.1(H) 0.3 - 0.9 x10(3)/[facility] LABORATORY Eos % 2.6 % [facility] Eosinophils Abs 0.2 0.0 - 0.4 x10(3)/[facility] LABOR[facility]ORY Basophil % 0.8 % [facility] Baso Absolute 0.1 0.0 - 0.1 x10(3)/[facility] LABOR[facility]ORY Immature Gran % 0.60 % [facility] Comment: Immature granulocytes(IG's)percentage and absolute count will include metamyelocytes, myelocytes, and promyelocytes. Blood smears from CBCs yielding IG's will be scanned manually for concordance. If this scan disagrees with the automated IG or if promyelocytes are noted, a manual differential will be performed. Immature Gran Absolute 0.05(H) 0.00 - 0.04 x10(3)/[facility] LABORATORY Blood 05/20/2022 5:02 AM EDT 05/20/2022 5:19 AM EDT Narrative Resulting Agency Comment Spec In Lab Edward Rodríguez MD HEMATOLOGY ORDER NICK [facility] [place] [address] * (ABNORMAL) Hemogram (05/20/2022 5:02 AM EDT) Pathologist [facility] White Blood Cell 7.8 4.0 - 9.5 x10(3)/mc L [facility] Red Blood Cell 3.53(L) 4.58 - 5.54 x10(6)/mc L [facility] Hemoglobin 11.4(L) 13.7 - 16.5 g/dL [facility] Hematocrit 34.3(L) 40.5 - 48.5 % [facility] Mean Cell Volume 97.2(H) 82.9 - 93.1 fL [facility] Mean Cell Hemoglobin 32.3(H) 27.5 - 32.1 pg [facility] Mean Cell Hemoglobin Concentration 33.2 32.0 - 35.7 g/dL [facility] Platelet 181 145 - 357 x10(3)/[facility] LABORATORY RDW Standard Deviation 46.4(H) 36.0 - 45.0 fL [facility] RDW coefficient of variation 13.0 11.4 - 13.8 % [facility] Mean Platelet Volume 10.4 7.6 - 12.9 [facility] LABORATORY NRBC% auto 0.0 % [facility] NRBC Absolute 0.000 0.000 - 0.000 x10(3)/[facility] LABOR[facility]ORY Blood 05/20/2022 5:02 AM EDT 05/20/2022 5:19 AM EDT Narrative Resulting Agency Comment Spec In Lab Edward Rodríguez MD HEMATOLOGY ORDER NICK [facility] [place] [address] * Heparin (unfractionated) Level (05/19/2022 3:26 AM EDT) UF Heparin 0.59 IU/mL [facility] Comment: Heparin (anti-Xa) levels should [...] MD HEMATOLOGY ORDERABLE S Performing Organization Address City/State/[facility] Co de Phone Number [facility] [place] [address] * (ABNORMAL) Differential, Automated (05/19/2022 3:26 AM EDT) Neutrophil % 62.1 % [facility] Neutrophil Absolute 4.59 1.70 - 6.10 x10(3)/mc L [facility] Lymph % 22.1 % [facility] Lymphocytes Abs 1.6 0.9 - 3.2 x10(3)/mc L [facility] Monocyte % 13.5 % [facility] Monocyte Abs 1.0(H) 0.3 - 0.9 x10(3)/mc L [facility] Eos % 1.3 % [facility] Eosinophils Abs 0.1 0.0 - 0.4 x10(3)/mc L [facility] Basophil % 0.5 % [facility] Baso Absolute 0.0 0.0 - 0.1 x10(3)/mc L [facility] Immature Gran % 0.50 % [facility] Comment: Immature granulocytes(IG's)percentage and absolute count will include metamyelocytes, myelocytes, and promyelocytes. Blood smears from CBCs yielding IG's will be scanned manually for concordance. If this scan disagrees with the automated IG or if promyelocytes are noted, a manual differential will be performed. Immature Gran Absolute 0.04 0.00 - 0.04 x10(3)/mc L [facility] Blood 05/19/2022 3:26 AM EDT 05/19/2022 3:59 AM EDT Narrative Resulting Agency Comment Spec In Lab Edward Rodríguez MD HEMATOLOGY ORDER NICK [facility] [place] [address] * (ABNORMAL) Hemogram (05/19/2022 3:26 AM EDT) White Blood Cell 7.4 4.0 - 9.5 x10(3)/mc L [facility] Red Blood Cell 3.74(L) 4.58 - 5.54 x10(6)/mc [facility] Hemoglobin 12.1(L) 13.7 - 16.5 g/dL [facility] Hematocrit 36.4(L) 40.5 - 48.5 % [facility] Mean Cell Volume 97.3(H) 82.9 - 93.1 [facility]ORAT[facility] Mean Cell Hemoglobin 32.4(H) 27.5 - 32.1 pg [facility] Mean Cell Hemoglobin Concentration 33.2 32.0 - 35.7 g/dL [facility] Platelet 168 145 - 357 x10(3)/mc L [facility] RDW Standard Deviation 46.9(H) 36.0 - 45.0 [facility] RDW coefficient of variation 13.0 11.4 - 13.8 % [facility] Mean Platelet Volume 10.5 7.6 - 12.9 [facility]ORATORY NRBC% auto 0.0 % [facility] NRBC Absolute 0.000 0.000 - 0.000 x10(3)/mc L [facility] Blood 05/19/2022 3:26 AM EDT 05/19/2022 3:59 AM EDT Narrative Resulting Agency Comment Spec In Lab Edward Rodríguez MD HEMATOLOGY ORDER NICK Performing Organization Address City/[facility]/ZIP Co de Phone Number [facility] [place] [address] * TSH (05/18/2022 8:00 PM EDT) [facility] Thyroid Stimulating Hormone 2.27 0.27 - 4.20 mcIU/mL [facility] Comment: Reference Interval (mcIU/mL): Females: ??First Trimester: 0.23-3.88 ??Second Trimester: 0.22-3.90 ??Third Trimester: 0.44-4.66 Blood 05/18/2022 8:00 PM EDT 05/18/2022 8:06 PM EDT Narrative Resulting Agency Comment Spec In Lab Fito Summers MD CHEMISTRY ORDERABLES Performing Organization Address [facility]/ZIP Co de Phone Number [facility] [place] [address] * (ABNORMAL) Differential, Automated (05/18/2022 3:34 AM EDT) [facility] Neutrophil % 67.2 % [facility] Neutrophil Absolute 5.89 1.70 - 6.10 x10(3)/mc L [facility] Lymph % 17.1 % [facility] Lymphocytes Abs 1.5 0.9 - 3.2 x10(3)/mc L [facility] Monocyte % 13.6 % [facility] Monocyte Abs 1.2(H) 0.3 - 0.9 x10(3)/mc L [facility] Eos % 1.0 % [facility] Eosinophils Abs 0.1 0.0 - 0.4 x10(3)/mc L [facility] Basophil % 0.6 % [facility] Baso Absolute 0.0 0.0 - 0.1 x10(3)/[facility] LAB[facility] Immature Gran % 0.50 % [facility] Comment: Immature granulocytes(IG's)percentage and absolute count will include metamyelocytes, myelocytes, and promyelocytes. Blood smears from CBCs yielding IG's will be scanned manually for concordance. If this scan disagrees with the automated IG or if promyelocytes are noted, a manual differential will be performed. Immature Gran Absolute 0.04 0.00 - 0.04 x10(3)/[facility] LABORATORY Blood 05/18/2022 3:34 AM EDT 05/18/2022 3:48 AM EDT Narrative Resulting Agency Comment Spec In Lab Edward Rodríguez MD HEMATOLOGY ORDER NICK Performing Organization Address City/State/[facility] Co de Phone Number [facility] [place] [address] * (ABNORMAL) Hemogram (05/18/2022 3:34 AM EDT) White Blood Cell 8.8 4.0 - 9.5 x10(3)/[facility] LAB[facility] Red Blood Cell 3.45(L) 4.58 - 5.54 x10(6)/[facility] LAB[facility]ORY Hemoglobin 11.2(L) 13.7 - 16.5 g/dL [facility] Hematocrit 33.0(L) 40.5 - 48.5 % [facility] Mean Cell Volume 95.7(H) 82.9 - 93.1 fL [facility] Mean Cell Hemoglobin 32.5(H) 27.5 - 32.1 pg [facility] Mean Cell Hemoglobin Concentration 33.9 32.0 - 35.7 g/dL [facility] Platelet 130(L) 145 - 357 x10(3)/[facility] LABOR[facility]ORY RDW Standard Deviation 46.2(H) 36.0 - 45.0 fL [facility] RDW coefficient of variation 13.2 11.4 - 13.8 % [facility] Mean Platelet Volume 10.8 7.6 - 12.9 fL [facility] NRBC% auto 0.0 % [facility] NRBC Absolute 0.000 0.000 - 0.000 x10(3)/mc L [facility] Blood 05/18/2022 3:34 AM EDT 05/18/2022 3:48 AM EDT Narrative Resulting Agency Comment Spec In Lab Edward Rodríguez MD HEMATOLOGY ORDER NICK Performing Organization Address [facility]/ZIP Co de Phone Number [facility] [place] [address] * Heparin (unfractionated) Level (05/18/2022 3:34 AM EDT) UF Heparin 0.59 IU/mL [facility] Comment: Heparin (anti-Xa) levels should [...] MD HEMATOLOGY ORDERABLE S Performing Organization Address City/[facility]/ZIP Co de Phone Number [facility] [place] [address] * Magnesium (05/17/2022 3:33 AM EDT) Magnesium 0.76 0.69 - 1.07 mmol/L [facility] Blood Venous Draw / Unknown 05/17/2022 3:33 AM EDT 05/17/2022 4:05 AM EDT Narrative Resulting Agency Comment Spec In Lab Dottie Kurt Hill APRN CHEMISTRY ORDERABL ES [facility] [place] [address] * (ABNORMAL) Basic Metabolic Panel (non-fasting) (05/17/2022 3:33 AM EDT) Glucose 158 65 - 199 mg/dL [facility] Comment:Diabetes: >=200 mg/d L plus symptoms Blood Urea Nitrogen 12 10 - 20 mg/dL [facility] Creatinine 0.74(L) 0.80 - 1.50 mg/dL [facility] [...] questions. Chloride 102 98 - 107 mmol/L [facility] Carbon Dioxide 25 22 - 31 mmol/L [facility] Anion Gap 10 5 - 15 mmol/L [facility] Calcium 8.4(L) 8.5 - 10.5 mg/dL [facility] Est Glomerular Filtration Rate 92 >=60 mL/min/1. 73 m?? [facility] Comment: [...] In Lab Fito Summers MD CHEMISTRY ORDERABLES [facility] [place] [address] * (ABNORMAL) Differential, Automated (05/17/2022 3:33 AM EDT) Neutrophil % 65.5 % [facility] Neutrophil Absolute 6.84(H) 1.70 - 6.10 x10(3)/mc L [facility] Lymph % 19.7 % [facility] Lymphocytes Abs 2.1 0.9 - 3.2 x10(3)/mc L [facility] Monocyte % 13.1 % [facility] Monocyte Abs 1.4(H) 0.3 - 0.9 x10(3)/mc L [facility] Eos % 0.6 % [facility] Eosinophils Abs 0.1 0.0 - 0.4 x10(3)/mc L [facility] Basophil % 0.6 % [facility] Baso Absolute 0.1 0.0 - 0.1 x10(3)/mc L [facility] Immature Gran % 0.50 % [facility] Comment: Immature granulocytes(IG's)percentage and absolute count will include metamyelocytes, myelocytes, and promyelocytes. Blood smears from CBCs yielding IG's will be scanned manually for concordance. If this scan disagrees with the automated IG or if promyelocytes are noted, a manual differential will be performed. Immature Gran Absolute 0.05(H) 0.00 - 0.04 x10(3)/ L [facility] Blood 05/17/2022 3:33 AM EDT 05/17/2022 3:53 AM EDT Narrative Resulting Agency Comment Spec In Lab Edward Rodríguez MD HEMATOLOGY ORDER NICK [facility] [place] [address] * (ABNORMAL) Hemogram (05/17/2022 3:33 AM EDT) White Blood Cell 10.4(H) 4.0 - 9.5 x10(3)/[facility] LAB[facility] Red Blood Cell 3.72(L) 4.58 - 5.54 x10(6)/[facility] Hemoglobin 12.0(L) 13.7 - 16.5 g/dL [facility] Hematocrit 36.4(L) 40.5 - 48.5 % [facility] Mean Cell Volume 97.8(H) 82.9 - 93.1 fL [facility] Mean Cell Hemoglobin 32.3(H) 27.5 - 32.1 pg [facility] Mean Cell Hemoglobin Concentration 33.0 32.0 - 35.7 g/dL [facility] Platelet 149 145 - 357 x10(3)/[facility] LABORATORY RDW Standard Deviation 48.7(H) 36.0 - 45.0 [facility] LABORATORY RDW coefficient of variation 13.5 11.4 - 13.8 % [facility] Mean Platelet Volume 10.6 7.6 - 12.9 [facility] LABORATORY NRBC% auto 0.0 % [facility] NRBC Absolute 0.000 0.000 - 0.000 x10(3)/ L [facility] Blood 05/17/2022 3:33 AM EDT 05/17/2022 3:53 AM EDT Narrative Resulting Agency Comment Spec In Lab Edward Rodríguez MD HEMATOLOGY ORDER NICK Performing Organization Address City/[facility]/ZIP Co de Phone Number [facility] [place] [address] * (ABNORMAL) Urinalysis Microscopic Exam (05/16/2022 11:15 PM EDT) RBC, Urine 8(H) 0 - 3 /HPF [facility] WBC, Urine 2 0 - 3 /HPF [facility] Clean Catch Urine 05/16/2022 11:15 PM EDT 05/16/2022 11:30 PM EDT Narrative Resulting Agency Comment Spec In Lab Barbie Patiño MD URINE ORDERABLES Performing Organization Address [facility] Co de Phone Number [facility] [place] [address] * (ABNORMAL) Urinalysis with reflex Culture (05/16/2022 11:15 PM EDT) Glucose, Urine Dipstick Negative Negative mg/dL [facility] Protein, Urine Dipstick Negative Negative mg/dL [facility] Bilirubin, Urine Dipstick Negative Negative mg/dL [facility] Comment: Clinical correlation required for positive Urine Bilirubin results as false positive may occur with some drugs and drug related products. If a false positive is suspected a serum total bilirubin should be considered if clinically indicated. Urobilinogen, Urine Dipstick Normal Normal mg/dL [facility] pH, Urn (dipstick) 6.0 5.0 - 8.0 [facility] Blood, Urine Dipstick Small(A) Negative mg/dL [facility] Ketone, Urine Dipstick Trace(A) Negative mg/dL [facility] Nitrite, Urine Dipstick Negative Negative [facility] Leukocytes, Urine Dipstick Negative Negative [facility] LABOR[facility]ORY Appearance, Urine Dipstick Clear Clear [facility] Specific [place] Urine Automated 1.021 1.005 - 1.030 [facility] Color, Urine Dipstick Yellow Yellow [facility] Reflex to Culture No [facility] Clean Catch Urine 05/16/2022 11:15 PM EDT 05/16/2022 11:30 PM EDT Narrative Resulting Agency Comment Spec In Lab Fito Summers MD URINE ORDERABLES Performing Organization Address [facility]/ZIP Co de Phone Number [facility] [place] [address] * Heparin (unfractionated) Level (05/16/2022 10:59 PM EDT) UF Heparin 0.65 IU/mL [facility] Comment: Specimen drawn more than [...] MD HEMATOLOGY ORDERABLE S Performing Organization Address City/[facility]/ZIP Co de Phone Number [facility] [place] [address] * XR Chest One View (05/16/2022 9:14 [...] Electronically signed by: Tiffanie George MD, [facility] ([phone]), at 05/16/2022 9:27 PM Narrative 05/16/2022 9:27 [...] who have questions please contactthe health childcare teacher that requested your imaging first. Fito Summers MD IMG DX ORDERABLES * EKG 12 Lead (05/16/2022 8:57 PM EDT) Ventricular rate 117 BPM MUSE SYSTEM QRS Duration 112 ms MUSE SYSTEM Q-T Interval 346 ms MUSE SYSTEM QTC Calculated (Bezet) 482 ms MUSE SYSTEM Calculated R [place] -48 degrees MUSE SYSTEM Calculated T [place] 111 degrees MUSE SYSTEM INTERPRETATION Atrial fibrillation [...] 4:34 PM EDT) UF Heparin 0.53 IU/mL [facility] Comment: Heparin (anti-Xa) levels should [...] Fito Summers MD HEMATOLOGY ORDERABLE S [facility] [address] [place] [address] * ECHO COMPLETE W CONTRAST (05/16/2022 12:49 PM EDT) EF 28 HEARTLAB SYSTEM Anatomical Region Laterality Modality Cardiac Other 05/16/2022 11:2 2 AM EDT Narrative 05/16/2022 1:54 PM EDT ?[facility] ?[address] ? [place] [address] ?Voice: ?Fax: ? Echocardiogram Report Name: KOKO BAH Laurie ?Study Date: 05/16/2022 11:22 AM ? [facility] : 1940 ? Height: 67.5 in ? Account: [id number] Age: 81 yrs ? Weight: 176 lb Gender: Male ?BSA: 1.9 m2 Ordering Physician: FITO SUMMERS Referring Physician: MAIK FLORIAN Performed By: Jolene Bernard RDCS Exam Location: [facility]. Interpretation Summary Left ventricle is mildly dilated. [...] and LV systolic dysfunction are new. Procedure Complete-32141. Image enhancement Optison was used for both [...] Note Gladys Jaime MD - 05/16/2022 [facility] [address] [place] [address] Voice: Fax: Echocardiogram Report Name: KOKO BAH Study Date: 1:22 AM Patient Location: [id number] : 1940 Height: 67.5 in Account: [id number] Age: 81 yrs Weight: 176 lb Gender: Male BSA: 1.9 m2 Ordering Physician: FITO SUMMERS Referring Physician: MAIK FLORIAN Performed By: Jolene Bernard LOLLY Exam Location: [facility]. Interpretation Summary Left ventricle is mildly dilated. [...] moderate and LV systolicdysfunction are new. Procedure Complete-[id number]. Image enhancement Optison was used for both [...] Absolute 9.11(H) 1.70 - 6.10 x10(3)/mc L [facility] Lymph % 9.4 % [facility] Lymphocytes Abs 1.1 0.9 - 3.2 x10(3)/mc L [facility] Monocyte % 10.9 % [facility] Monocyte Abs 1.3(H) 0.3 - 0.9 x10(3)/[facility] Eos % 0.0 % [facility] Eosinophils Abs 0.0 0.0 - 0.4 x10(3)/[facility] Basophil % 0.3 % [facility] Baso Absolute 0.0 0.0 - 0.1 x10(3)/[facility] Immature Gran % 0.60 % [facility] Comment: Immature granulocytes(IG's)percentage and absolute count will include metamyelocytes, myelocytes, and promyelocytes. Blood smears from CBCs yielding IG's will be scanned manually for concordance. If this scan disagrees with the automated IG or if promyelocytes are noted, a manual differential will be performed. Immature Gran Absolute 0.07(H) 0.00 - 0.04 x10(3)/[facility] Blood 05/16/2022 3:01 AM EDT 05/16/2022 3:36 AM EDT Narrative Resulting Agency Comment Spec In Lab Erin Garza MD HEMATOLOGY ORDERABLE S [facility] [place] [address] * (ABNORMAL) Hemogram (05/16/2022 3:01 AM EDT) White Blood Cell 11.6(H) 4.0 - 9.5 x10(3)/[facility] Red Blood Cell 3.62(L) 4.58 - 5.54 x10(6)/[facility] Hemoglobin 12.0(L) 13.7 - 16.5 g/dL [facility] Hematocrit 35.3(L) 40.5 - 48.5 % [facility] Mean Cell Volume 97.5(H) 82.9 - 93.1 fL [facility] Mean Cell Hemoglobin 33.1(H) 27.5 - 32.1 pg [facility] Mean Cell Hemoglobin Concentration 34.0 32.0 - 35.7 g/dL [facility] Platelet 151 145 - 357 x10(3)/mc L [facility] RDW Standard Deviation 47.6(H) 36.0 - 45.0 [facility] RDW coefficient of variation 13.3 11.4 - 13.8 % [facility] Mean Platelet Volume 10.5 7.6 - 12.9 [facility] NRBC% auto 0.0 % [facility] NRBC Absolute 0.000 0.000 - 0.000 x10(3)/mc L [facility] Blood 05/16/2022 3:01 AM EDT 05/16/2022 3:36 AM EDT Narrative Resulting Agency Comment Spec In Lab Erin Garza MD HEMATOLOGY ORDERABLE S [facility] [place] [address] * Phosphorus (05/16/2022 3:01 AM EDT) Phosphorus 3.7 2.5 - 4.5 mg/dL [facility] Blood 05/16/2022 3:01 AM EDT 05/16/2022 3:36 AM EDT Narrative Resulting Agency Comment Spec In Lab Fito Summers MD CHEMISTRY ORDERABLES [facility] [place] [address] * Magnesium (05/16/2022 3:01 AM EDT) Magnesium 0.77 0.69 - 1.07 mmol/L [facility] Blood 05/16/2022 3:01 AM EDT 05/16/2022 3:36 AM EDT Narrative Resulting Agency Comment Spec In Lab Fito Summers MD CHEMISTRY ORDERABLES [facility] [place] [address] * (ABNORMAL) Basic Metabolic Panel (non-fasting) (05/16/2022 3:01 AM EDT) Glucose 222(H) 65 - 199 mg/dL [facility] Comment:Diabetes: >=200 mg/d L plus symptoms Blood Urea Nitrogen 12 10 - 20 mg/dL [facility] Creatinine 0.66(L) 0.80 - 1.50 mg/dL [facility] questions. Chloride 108(H) 98 - 107 mmol/L [facility] Carbon Dioxide 22 22 - 31 mmol/L [facility] Anion Gap 8 5 - 15 mmol/L [facility] Calcium 8.2(L) 8.5 - 10.5 mg/dL [facility] Est Glomerular Filtration Rate 95 >=60 mL/min/1. 73 m?? [facility] Comment: [...] In Lab Fito Summers MD CHEMISTRY ORDERABLES [facility] [place] [address] * (ABNORMAL) BLOOD GAS 2 ARTERIAL (05/15/2022 3:33 PM EDT) pH, Arterial 7.33(L) 7.35 - 7.45 [facility] PCO2, Arterial 41 35 - 45 mmHg [facility] PO2, Arterial 131(H) 85 - 104 mmHg [facility] Bicarbonate, Arterial 21.1 20.0 - 26.0 mmol/L [facility] Base Excess, Arterial -4.8(L) -3.0 - 3.0 mmol/L [facility] Hgb Blood Gas 13.4(L) 13.7 - 16.5 g/dL [facility] Oxyhemoglobin, Arterial 96.9 94.0 - 97.0 % [facility] Carboxyhemoglob in, Arterial 1.4 % [facility] Comment: Nonsmokers: 0.5-1.5% COHB Smokers: Variable, but usually less than 10% Toxic: 20-30% COHB Lethal: Greater than 60% COHB Methemoglobin, Arterial 0.3 <=1.5 % [facility] [...] Whole Blood 113(H) 98 - 107 mmol/L [facility] Gluc Whole Bld 136 65 - 199 mg/dL [facility] Comment:Diabetes: >=200 mg/d L plus symptoms. Lactate WB 2.0 0.5 - 2.2 mmol/L [facility] Blood 05/15/2022 3:33 PM EDT 05/15/2022 3:[address] Jamel Torre MD POINT OF CARE TEST O RDERABLES [facility] [place] [address] * (ABNORMAL) BLOOD GAS 2 ARTERIAL (05/15/2022 2:06 PM EDT) pH, Arterial 7.39 7.35 - 7.45 [facility] PCO2, Arterial 35 35 - 45 mmHg [facility] PO2, Arterial 135(H) 85 - 104 mmHg [facility] Bicarbonate, Arterial 20.8 20.0 - 26.0 mmol/L [facility] Base Excess, Arterial -4.2(L) -3.0 - 3.0 mmol/L [facility] Hgb Blood Gas 14.5 13.7 - 16.5 g/dL [facility] Oxyhemoglobin, Arterial 97.2(H) 94.0 - 97.0 % [facility] Carboxyhemoglob in, Arterial 1.2 % [facility] Comment: Nonsmokers: 0.5-1.5% COHB Smokers: Variable, but usually less than 10% Toxic: 20-30% COHB Lethal: Greater than 60% COHB Methemoglobin, Arterial 0.3 <=1.5 % [facility] [...] Whole Blood 1.12(L) 1.15 - 1.33 mmol/L [facility] Comment: Note: ??Total bilirubin higher than 20 mg/dL may lead to falsely low ionized calcium. CL Whole Blood 109(H) 98 - 107 mmol/L [facility] Gluc Whole Bld 152 65 - 199 mg/dL [facility] Comment:Diabetes: >=200 mg/d L plus symptoms. Lactate WB 1.5 0.5 - 2.2 mmol/L [facility] Blood 05/15/2022 2:06 PM EDT 05/15/2022 2:[address] Jamel Torre MD POINT OF CARE TEST O RDERABLES Performing Organization Address [facility]/ZIP Co de Phone Number [facility] [place] [address] * (ABNORMAL) Prothrombin Time (05/15/2022 12:30 PM EDT) Prothrombin Time 12.9(H) 9.4 - 12.5 sec [facility] International Normalization Ratio 1.1 [facility] Comment: [...] DO HEMATOLOGY ORDERABLE S Performing Organization Address [facility]/ZIP Co de Phone Number [facility] [place] [address] * (ABNORMAL) APTT (05/15/2022 12:30 PM EDT) Pathologist [facility] Partial Thromboplastin Time 76(H) 25 - 37 sec [facility] DO HEMATOLOGY ORDERABLE S Performing Organization Address City/[facility]/ZIP Co de Phone Number [facility] [place] [address] * Gold Tube HOLD (05/15/2022 12:20 PM EDT) [facility] Gold Hold Sample in lab. [facility] Blood No Charge / Unknown 05/15/2022 12:20 PM EDT 05/15/2022 12:20 PM EDT Lc TRIPP CHEMISTRY ORDERABLES Performing Organization Address City/[facility]/ZIP Co de Phone Number [facility] [place] [address] * Type and Screen Validity (05/15/2022 12:00 PM EDT) [facility] T&S only valid at [facility] Comment:This Type and Screen result is only valid at the [facility] Blood 05/15/2022 12:0 0 PM EDT 05/15/2022 12:17 PM EDT Narrative Resulting Agency Comment Spec In Lab Lc TRIPP BLOOD BANK LAB ORDER NICK Performing Organization Address City/[facility]/ZIP Co de Phone Number [facility] [place] [address] * ABORH Recheck Status (05/15/2022 12:00 PM EDT) ABORH Recheck Order Order Placed [facility] ABORH Type Recheck Complete [facility] Blood 05/15/2022 12:0 0 PM EDT 05/15/2022 12:17 PM EDT Narrative Resulting Agency Comment Spec In Lab Lc TRIPP BLOOD BANK LAB ORDER NICK [facility] [place] [address] * CK (05/15/2022 12:00 PM EDT) Pathologist [facility] Creatine Kinase 87 0 - 200 unit/L [facility] Blood Venous Draw / Unknown 05/15/2022 12:00 PM EDT 05/15/2022 12:19 PM EDT Narrative Resulting Agency Comment Spec In Lab Fito Summers MD CHEMISTRY ORDERABLES Performing Organization Address City/[facility]/ZIP Co de Phone Number [facility] [place] [address] * Antibody screen (05/15/2022 12:00 PM EDT) Ab Screen Interp Negative [facility] Expires at [id number] on: 05/18/2022 [facility] Blood 05/15/2022 12:0 0 PM EDT 05/15/2022 12:17 PM EDT Narrative Resulting Agency Comment Spec In Lab Lc TRIPP BLOOD BANK LAB ORDER NICK Performing Organization Address City/[facility]/ZIP Co de Phone Number [facility] [place] [address] * ABO/Rh Typing (05/15/2022 12:00 PM EDT) ABORH Type O Pos [facility] Blood 05/15/2022 12:0 0 PM EDT 05/15/2022 12:17 PM EDT Narrative Resulting Agency Comment Spec In Lab Lc TRIPP BLOOD BANK LAB ORDER NICK Performing Organization Address [facility]/ZIP Co de Phone Number [facility] [place] [address] * (ABNORMAL) Differential, Automated (05/15/2022 12:00 PM EDT) Neutrophil % 79.4 % [facility] Neutrophil Absolute 7.49(H) 1.70 - 6.10 x10(3)/ L [facility] Lymph % 11.3 % [facility] Lymphocytes Abs 1.1 0.9 - 3.2 x10(3)/ L [facility] Monocyte % 7.8 % [facility] Monocyte Abs 0.7 0.3 - 0.9 x10(3)/[facility] Eos % 0.6 % [facility] Eosinophils Abs 0.1 0.0 - 0.4 x10(3)/[facility] Basophil % 0.6 % [facility] Baso Absolute 0.1 0.0 - 0.1 x10(3)/ L [facility] Immature Gran % 0.30 % [facility] Comment: Immature granulocytes(IG's)percentage and absolute count will include metamyelocytes, myelocytes, and promyelocytes. Blood smears from CBCs yielding IG's will be scanned manually for concordance. If this scan disagrees with the automated IG or if promyelocytes are noted, a manual differential will be performed. Immature Gran Absolute 0.03 0.00 - 0.04 x10(3)/ L [facility] Blood 05/15/2022 12:0 0 PM EDT 05/15/2022 12:19 PM EDT Narrative Resulting Agency Comment Spec In Lab Lc TRIPP HEMATOLOGY ORDERABLE S Performing Organization Address City/[facility]/ZIP Co de Phone Number [facility] [place] [address] * (ABNORMAL) Hemogram (05/15/2022 12:00 PM EDT) [facility] White Blood Cell 9.4 4.0 - 9.5 x10(3)/mc L [facility] Red Blood Cell 4.48(L) 4.58 - 5.54 x10(6)/mc L [facility] Hemoglobin 14.5 13.7 - 16.5 g/dL [facility] Hematocrit 42.4 40.5 - 48.5 % [facility] Mean Cell Volume 94.6(H) 82.9 - 93.1 fL [facility] Mean Cell Hemoglobin 32.4(H) 27.5 - 32.1 pg [facility] Mean Cell Hemoglobin Concentration 34.2 32.0 - 35.7 g/dL [facility] Platelet 209 145 - 357 x10(3)/mc L [facility] RDW Standard Deviation 45.9(H) 36.0 - 45.0 fL [facility] RDW coefficient of variation 13.1 11.4 - 13.8 % [facility] Mean Platelet Volume 10.5 7.6 - 12.9 fL [facility] NRBC% auto 0.0 % [facility] NRBC Absolute 0.000 0.000 - 0.000 x10(3)/mc L [facility] Blood 05/15/2022 12:0 0 PM EDT 05/15/2022 12:19 PM EDT Narrative Resulting Agency Comment Spec In Lab Lc TRIPP HEMATOLOGY ORDERABLE S [facility] [place] [address] * (ABNORMAL) Basic Metabolic Panel (non-fasting) (05/15/2022 12:00 PM EDT) Glucose 203(H) 65 - 199 mg/dL [facility] Comment:Diabetes: >=200 mg/d L plus symptoms Blood Urea Nitrogen 16 10 - 20 mg/dL [facility] [...] questions. Chloride 107 98 - 107 mmol/L [facility] Carbon Dioxide 23 22 - 31 mmol/L [facility] Anion Gap 11 5 - 15 mmol/L [facility] Calcium 8.5 8.5 - 10.5 mg/dL [facility] Est Glomerular Filtration Rate 89 >=60 mL/min/1. 73 m?? [facility] Comment: [...] In Lab Jhonny Morales DO CHEMISTRY ORDERABLES [facility] [place] [address] documented in this encounter Visit Diagnoses Diagnosis [...] mg = 1.8 mg/kg/dose ? 67.7 kg [place] weight), Intravenous, at 11.3 mL/hr, Administer over [...] mg = 2.4 mg/kg/dose ? 67.7 kg [place] weight), Intravenous, at 15 mL/hr, Administer over [...] mg = 0.24 mg/kg/dose ? 67.7 kg [place] weight), Oral, 2 TIMES DAILY, 2 doses, [...] mg = 0.48 mg/kg/dose ? 67.7 kg [place] weight), Oral, 2 TIMES DAILY, 2 doses, [...] mg = 0.12 mg/kg/dose ? 67.7 kg [place] weight), Oral, 2 TIMES DAILY, 2 doses, [...] RN) 0852 (Given - Provider: Barbie Joyce, IDON)1750 ([facility] Hold - Provider: Admin Adt - Reason: Transfer to a Procedural area)1955 ([facility] Unhold - Provider: Admin Adt) 814 (Given - Provider: Etta Don RN) metoprolol tartrate (Lopressor) tablet 12.5 mg (CANCELED) 12.5 mg, Oral, EVERY 12 HOURS SCHEDULED (2 times per day), First dose on Fri05/18/22 at 2100, Until Discontinued, Routine 0838 (Given - Provider: Caroline Bah RN)2008 (Given - Provider: Nuris Lester RN) 0853 (Given - Provider: Barbie Joyce RN)1750 ([facility] Hold - Provider: Admin Adt - Reason: Transfer to a Procedural area)1955 ([facility] Unhold - Provider: Admin Adt)2004 (Given [...] 0852 (Given - Provider: Barbie Joyce RN)1750 ([facility] Hold - Provider: Admin Adt - Reason: Transfer to a Procedural area)1955 ([facility] Unhold - Provider: Admin Adt) 0816 [...] 0853 (Given - Provider: Barbie Joyce RN)1750 ([facility] Hold - Provider: Admin Adt - Reason: Transfer to a Procedural area)1955 ([facility] Unhold - Provider: Admin Adt) 816 (Given - Provider: Etta Don, DION) thiamine (Vitamin B1) tablet 100 mg 100 mg, Oral, DAILY, First dose on Brandi 05/16/22 at 0900, Until Discontinued, Routine 0838 (Given - Provider: Caroline Bah RN) 0853 (Given - Provider: Barbie Joyce RN)1750 ([facility] Hold - Provider: Admin Adt - Reason: Transfer to a Procedural area)1955 ([facility] Unhold - Provider: Admin Adt) 0816 (Given - Provider: Etta Don, DION) valsartan (Diovan) tablet 40 mg 40 mg, Oral, 2 TIMES DAILY, First dose on 05/18/22 at 2100, Until Discontinued 0838 (Given - Provider: Caroline Bah RN)2008 (Given - Provider: Nuris Lester RN) 0853 (Given - Provider: Barbie Joyce RN)1750 ([facility] Hold - Provider: Admin Adt - Reason: Transfer to a Procedural area)1955 ([facility] Unhold - Provider: Admin Adt)2005 (Given [...] - Reason: Transfer to a Procedural area)1955 ([facility] Unhold - Provider: Admin Adt) oxyCODONE (Roxicodone) tablet 5-10 mg(Linked Group 3) 5-10 mg, Oral, EVERY 4 HOURS PRN, Starting on Fri05/17/22 at 0655, Until Fri05/21/22 at 1743, Pain, moderate pain (4-6), Initial dose 5mg. If pain control not adequate in 60 minutes, give additional 5mg, Routine 1750 ([facility] Hold - Provider: Admin Adt - Reason: Transfer to a Procedural area)1955 ([facility] Unhold - Provider: Admin Adt) sodium chloride [...] Routine documented in this encounter Care Teams Teacher Associate Relationship Specialty Start Date End Date Bobby Das MD [address] [place] [address] [place] [id number] PCP - General 10/02/10 documented as of this encounter
--- OUTSIDE RECORDS SUMMARY | 2024-09-30 17:04 | XMS_ITS | Encounter Summary ---
[place] [address] Care Team Providers Care Restaurant Bartender Name Role Phone Bobby Das MD Primary Care Provider Reason for Visit * Reason Comments Left Leg Pain * Auth/Cert Specialty Diagnoses / Procedures Referred By Colby quezada Referred To Contact Diagnoses Limb ischemia LLE thrombus Fito Summers MD [facility] [place] [address] [facility] Referral ID Status Reason Start Date Expiration Date Visits Re quested Visits Authorized [id number] 1 1 Encounter Details Date Type Department Care Team (Late st Contact Info) Description 05/20/2022 3:30 PM EDT - 05/20/2022 4:30 PM EDT Surgery [place] [address] Abundio Servin MD [facility] [place] [address] CARDIAC CATHETERIZATION Social History Tobacco Use Types [...] onset Afib who presents in transfer from [facility] with acute limb ischemia of [...] with ALI and emergently went to [facility] for L PHOTOGRAPHIC ENGINEER transverse arteriotomy and primary repair, thromboembolectomy of L SFA/PFA/PHOTOGRAPHIC ENGINEER, reperfusion venous drainage for 250 cc, and [...] Discharge Condition: Good Discharge to: Home with [facility]. [address] [place] [address] Future Appointments and Orders Future Appointments and Orders Future Appointments Provider Department Dept Phone 05/23/2022 10:30 AM Loretta Cohen MD Dermatology at [facility] Arrive at: Attorney At Law [address] [place] [address] 06/07/2022 1:30 PM Gail Rae APRN Vascular Surgery at [facility] Arrive at: Attorney At Law Area [phone] 06/13/2022 7:30 AM Edson Lagos [place] Vascular Lab at [facility] Arrive at: Attorney At Law Area [phone] 06/13/2022 8:00 AM Fito Summers MD Vascular Surgery at [facility] Arrive at: Attorney At Law Area [phone] 06/13/2022 10:00 AM Alan Reid MD Cardiology at [facility] Arrive at: Attorney At Law Area [phone] Future Orders Complete By Expires Ziopatch 48 Hrs-15 Days [IRP7368 CPT(R)] 05/21/2022 11/20/2022 Process Instructions: Scheduling Instructions: Comments: Questions: Does the patient have a pacemaker? If yes provide HI/LO settings: Apply for 7 or 14 days?: 7 Where will study be performed?: [facility] JOSSELYN, legs, multiple levels [VAS8 Custom] 06/21/2022 (Approximate) 12/21/2022 Process Instructions: There is no in-house vascular laborer fryer farm available on weeknights (5pm-8am), weekends, or holidays. IF THIS IS A REQUEST FOR AN EMERGENT STUDY DURING THOSE HOURS, please have the senior provider responsible for the patient page the Vascular Surgery Fellow/Senior Resident double end production grinder to discuss options. Scheduling Instructions: Questions: Indication [...] admission to Home Health. [address] [facility] [address] (home) Date of : 1940 Inpatient DOCUMENTATION FOR VNA SERVICES (INCLUDING THOSE PATIENTS WITH MEDICARE COVERAGE REQUIRING HOME VNA SERVICES AND/OR HOSPICE SERVICES) PATIENT'S LOCATION: Koko Zamora [address] [facility] [address] (home) Cell: No relevant phone numbers on file. Manager Transfusion's Name: Koko In discussion with the attending physician, it is certified that this patient is under their care and that they, or a Nurse Practitioner,Clinical Nurse specialist or Physician Oil Expeller Operator who is working directly with them, [...] CARE AGENCY: [facility] [address] [place] [address] Start of care: Within 24 to 48 [...] from this patient's PCP: Bobby Das MD [address] [place] [address] / [place] [address] All VNA agencies which cover the [...] For any problems or questions please call [phone] For issues on weeknights after 5pm and weekends please call [phone] and ask for the Vascular Fellow double end production grinder. JOSEE Santiago Vascular Surgery 05/21/2022 documented in [...] For any problems or questions please call [phone] For issues on weeknights after 5pm and weekends please call [phone] and ask for the Vascular Fellow double end production grinder. documented in this encounter Medications at Time of Discharge Medication Sig Dispensed Refills Start Date End Date fluticasone propionate (FLONASE) 50 mcg/actuation [place], Suspension 1 spray by Each Nare [...] onset Afib who presents in transfer from [facility] with acute limb ischemia of [...] status, full code. JOSEE Santiago 05/21/2022 Pager: [phone] * Brannon Isaacs - 05/21/2022 10:35 AM [...] plan as stated. Time IN / OUT: 5070-1097 Total Minutes, Physical Therapy: 25 Billing Code: 2 BOSTON Isaacs DPT Pager: [phone] Physical Therapy Inpatient Rehabilitation Department * [place] [...] Unit [facility] Office Visit from 04/17/2021 in [...] and plan of care per Dr. Mcnamara (theater technician). 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 His [...] to Hosp-Admission (Current) from 05/15/[address] [place] [address] Office Visit from 04/17/2021 in Pain and [...] and plan of care per Dr. Mcnamara (theater technician). Please refer to her note above [...] in 2000 (not at [facility])with no CAD at that time. Currently, an [...] will continue to follow. * Dottie Hill, BRASS POURER - 05/20/2022 8:34 AM EDT Vascular Surgery Progress Note Koko Zamora is a 81 y.o. male with w new onset Afib who presents in transfer from [facility] with acute limb ischemia of [...] management following Dottie Hill APRN 05/20/2022 Pager: [phone] * Laney Atkins RN - 05/20/2022 1:14 AM EDT Pt Koko transferred to room from [facility]. A&Ox4, oriented to room and call boo. Masimo and telemetry placed. In agreement with assessment as documented this evening by Nuris ASHLEY. No complaintsat this time. Pt aware of NPO status and plan for cardiac cath in AM. Urinal provided. Resting comfortably in bed. * Nuris Lester RN - 05/20/2022 1:09 AM EDT Pt. Transferred to [facility]. RN accompanied patient to floor and handed off to [facility] RN * Dottie Hill APRN - 05/19/2022 10:02 AM EDT Vascular Surgery Progress Note Koko Zamora is a 81 y.o. male with w new onset Afib who presents in transfer from [facility] with acute limb ischemia of [...] management following Dottie Hill APRN 05/19/2022 Pager: [phone] * Emily Sauceda RN - 05/19/2022 6:28 AM EDT OUTCOME EVALUATION NOTE: OUTCOME SUMMARY: Patient AOx4, VSS on RA. Afib on tele. HR controlled w/ PRN metop, given x2. Denies CP, SOB, n/v. See flowsheets for NVC. Dressings to LLE CDI, prevena [place] to groin intact. Voiding to urinal. 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 Incisions to LLE WDL and RN TELEPHONIC. Denies n/t to BLE. 2+ dorsal pulses noted. Heparin drip infusing at 1200 units/hr. UFH within therapeutic range, next labs due with morning labs. Voiding adequately without difficulty to bedside urinal. [employer] DISTRICT HOME ECONOMICS AGENT.Up to chair this AM with nursing staff. Worked with PT, tolerated well. Diet changed to regular at 1800. Plan is for cardiac cath on Friday. PLAN MOVING FORWARD: Bleeding precautions Pain management neurovascular checks PT/OT receiver/laborer INDIVIDUALIZED FALL PREVENTION INTERVENTIONS: Patient-specific fall risk [...] PLAN GOAL OUTCOME EVALUATION: * Dottie Hill, BRASS POURER - 05/18/2022 12:50 PM EDT Vascular Surgery Progress Note Koko Zamora is a 81 y.o. male with w new onset Afib who presents in transfer from [facility] with acute limb ischemia of [...] mL Intravenous BID ??? PHENobarbitaL 0.12 mg/kg/dose (Jay) Oral BID ??? thiamine 100 mg Oral [...] management following Dottie Hill APRN 05/18/2022 Pager: [phone] * Brannon Isaacs - 05/18/2022 10:00 AM [...] IR Biopsy Spine 07/20/2019 Bobby Marshall MD [facility] INTERVENTIONL RAD ??? IR VERTEBROPLASTY LUMBAR MULTIPLE LEVELS 07/20/2019 IR Vertebroplasty Lumbar Multiple Levels 07/20/2019 Bobby Marshall MD [facility] INTERVENTIONL RAD ??? IR VERTEBROPLASTY THORACIC SINGLE LEVEL 10/25/2020 IR Vertebroplasty Thoracic Single Level 10/25/2020 Matt Chisholm MD [facility] INTERVENTIONL RAD ??? PRO EMBLC/THRMBC FEMORAL POPLITEAL AORTO-ILIAC ARTERY Left 05/15/2022 EMBOLECTOMY OR THROMBECTOMY, FEMOROPOPLITEAL, AORTOILIAC ARTERY BY LEG INCISION (WRVU 19.48) performed by Fito Summers MD at [facility] MAIN OR Social History: Pt lives [...] outlinedin this evaluation. Time IN / OUT: 3673-3657 Total Minutes, Physical Therapy: 30 Billing Code: Basilio Brannon Isaacs, PT Pager: [phone] Physical Therapy Inpatient Rehabilitation Department * Emily Sauceda, RN - 05/18/2022 4:34 AM EDT OUTCOME EVALUATION NOTE: OUTCOME SUMMARY: Patient AOx4, VSS on 2LNC. Afib on tele. HR above 120, MD aware, PRN IV metop given x1, HR returnedto 90's-low 100's. Denies CP, SOB, n/v. See flowsheets for NVC. Dressings to LLE CDI, prevena [place] togroin intact. Voiding to urinal. LBM DISTRICT HOME ECONOMICS AGENT. Heparin gtt therapeutic. Pain controlled. Patient sleeping [...] adequately without difficulty to bedside urinal. [employer] DISTRICT HOME ECONOMICS AGENT. Patient not OOB this shift. Currently NPO awaiting procedure in director of laboratory operations. PLAN MOVING FORWARD: Bleeding precautions Pain management neurovascular checks PT/OT NPO for director of laboratory operations INDIVIDUALIZED FALL PREVENTION INTERVENTIONS: Patient-specific fall risk [...] the Emergency Department as a transfer from [facility] with left lower extremity limb ischemia. He went to [facility] and was started on heparin and transferred to [facility] for evaluation by vascular surgery [...] will will be going to the director of laboratory operations for evaluation. Will defer PT eval at present but will see as ordered post cardiac catheritizaton. Social Hx:Pt lives with his Ursula in [place], [place] in a 2 level home in [...] WBAT LLE LISBET HERMAN, PT Pager # [phone] In-Pt Rehab Medicine * Dottie Hill, BRASS POURER - 05/17/2022 7:42 AM EDT Vascular Surgery Progress Note Koko Zamora is a 81 y.o. male with w new onset Afib who presents in transfer from [facility] with acute limb ischemia of [...] mL Intravenous BID ??? PHENobarbitaL 0.24 mg/kg/dose (Jay) Oral BID Followed by ??? [START ON 05/18/2022] PHENobarbitaL 0.12 mg/kg/dose (Jay) Oral BID ??? thiamine 100 mg Oral [...] management following Dottie Hill APRN 05/17/2022 Pager: [phone] * Sary Dos Santos RN - 05/17/2022 [...] onset Afib who presents in transfer from [facility] with acute limb ischemia of [...] mL Intravenous BID ??? PHENobarbitaL 0.48 mg/kg/dose (Jay) Oral BID Followed by ??? [START ON 05/17/2022] PHENobarbitaL 0.24 mg/kg/dose (Jay) Oral BID Followed by ??? [START ON 05/18/2022] PHENobarbitaL 0.12 mg/kg/dose (Jay) Oral BID ??? thiamine 100 mg Oral [...] management following Edward Rodríguez MD 05/16/2022 Pager: [phone] * Sary Dos Santos RN - 05/16/2022 [...] met 2129 Hand off to DION Ramirez [facility] documented in this encounter H&P Notes * [...] onset Afib who presents in transfer from [facility] with acute limb ischemia of [...] IR Biopsy Spine 07/20/2019 Bobby Marshall MD [facility] INTERVENTIONL RAD ??? IR VERTEBROPLASTY LUMBAR MULTIPLE LEVELS 07/20/2019 IR Vertebroplasty Lumbar Multiple Levels 07/20/2019 Bobby Marshall MD [facility] INTERVENTIONL RAD ??? IR VERTEBROPLASTY THORACIC SINGLE LEVEL 10/25/2020 IR Vertebroplasty Thoracic Single Level 10/25/2020 Matt Chisholm MD [facility] INTERVENTIONL RAD Social Hx: Social History [...] Refill ??? fluticasone propionate (FLONASE) 50 mcg/actuation [place], Suspension as needed. ??? fluorouraciL (EFUDEX) [...] and consented. Tim Chicas MD 05/15/2022 Pager: [phone] documented in this encounter ED Notes * [...] was started on heparin and transferred to [facility] for evaluation by vascular surgery. [...] the left lower extremity. Vascular surgery [facility] was contacted and he [...] in an outpatient cardiac rehabilitation program at [facility] was discussed. Patient agrees to a referral to this program. Timing will depend on his recovery from Vascular surgery. He is going home w/VNA PT. I gave him the brochure for the program at [facility] for future reference. * Care Management [...] information for follow-up Home Health & Hospice, [address] [place] [address] Transportation: family or friend will provide Functional [...] *No Product type* / Secondary Insurance: [facility] Prescription Coverage: Yes This plan was formulated with input from patient and team. All are in agreement with plan. GEOFFREY MORALES has communicated with Oli - for initial IMM. Shawn López RN (Jonas) RN/CM - Cellphone: [phone] Pager: [phone] Covering Service RN/CM * Plan of Care [...] *No Product type* / Secondary Insurance: [facility] Last Physical Therapy Recommendation: home [...] of Care Management letter from the Electrical Line Splicer pertaining to rehabreferrals. ?? provide a letter describing our affiliations within the [facility] and educate about their right to choose where referrals are sent. ?? provide a list of Home Health Agencies / Durable Medical Equipment vendors which serve their preferred geographic area. ?? provided patient with [facility] Star Quality Rating handout. They have requested referrals to: [facility]. [address] [place] [address] Note routed to a Counselor Aide who will communicate referrals to facilities and provide any required information. Transportation: family or friend will provide Barriers to discharge: None Plan going forward: Patient is going for a cardiac cath today and plan will come from there. Patient was recently seen by PT and they recommend VNA at time of discharge. [facility] was routed and pended at this time. Care Management will continue to follow and assist with discharge planning and coordination of care as indicated. Anticipated Date of Discharge: 05/21/2022 Nataly RICHMOND RN Phone: [phone] Pager: [phone] * Plan of Care - Laeny Atkins RN - 05/20/2022 3:19 AM EDT [...] [facility] [place] [address] INPATIENT CARDIOLOGY CONSULT NOTE Date of Consultation: [...] IR Biopsy Spine 07/20/2019 Bobby Marshall MD [facility] INTERVENTIONL RAD IR VERTEBROPLASTY LUMBAR MULTIPLE LEVELS 07/20/2019 IR Vertebroplasty Lumbar Multiple Levels 07/20/2019 Bobby Marshall MD [facility] INTERVENTIONL RAD IR VERTEBROPLASTY THORACIC SINGLE LEVEL 10/25/2020 IR Vertebroplasty Thoracic Single Level 10/25/2020 Matt Chisholm MD [facility] INTERVENTIONL RAD PRO EMBLC/THRMBC FEMORAL POPLITEAL AORTO-ILIAC ARTERY Left 05/15/2022 EMBOLECTOMY OR THROMBECTOMY, FEMOROPOPLITEAL, AORTOILIAC ARTERY BY LEG INCISION (WRVU 19.48) performed by Fito Summers MD at [facility] MAIN OR Allergies Allergen Reactions Aspirin Other (See Comments) GI bleed Out-Patient Medications: Medications Prior to Admission Medication Sig Dispense Refill Last Dose fluorouraciL (EFUDEX) 5 % Cream daily. CRESTOR 40 mg Tablet Take 40 mg by mouth daily. fluticasone propionate (FLONASE) 50 mcg/actuation [place], Suspension as needed. ascorbic acid, vitamin C, [...] 5 mL Intravenous BID PHENobarbitaL 0.24 mg/kg/dose (Jay) Oral BID Followed by [START ON 05/18/2022] PHENobarbitaL 0.12 mg/kg/dose (Jay) Oral BID thiamine 100 mg Oral Daily folic acid 1,000 mcg Oral Daily multivitamin with minerals 1 tablet Oral Daily heparin (porcine) infusion 1,200 Units/hr (05/17/22 0252) Family History: No family history on file. [...] to Hosp-Admission (Current) from 05/15/2022 in [facility] Office Visit from 04/17/2021 [...] continue to follow Anne-Marie Larson MD Pager [phone] Clinic: [phone] 05/17/22 6:22 PM * Initial Assessments - [...] spouse would be surrogate decision maker per [place] surrogate decision making law. (Only good for 180 days) Any patient receiving care at [facility] must abide by [place] law. The hierarchy [...] raised toilet seat Home Address confirmed as: [address] [facility] [address] [facility] [facility] [place] [address] Social & Family Supports: All names listed below confirmed with patient as Incorrect. Will notify oli to correct. Wifes address is same as and phone is [phone]. Extended Emergency Contact Information Primary Emergency Contact: Ursula Zamora Address: [address] [place] [address] [facility] [place] Relation: [...] *No Product type* / Secondary Insurance: [facility] Prescription Coverage: Yes Preferred Pharmacy: [id number] - [place], [place] - [address] [facility] [address] [facility] [address] [facility] - [place], [place] - [address] [facility] [address] [facility] [address] Status: Patient is a : unable to assess Primary Care Provider: Bobby Das MD [phone] Patient/Caregiver Goals of Treatment: to walk again Potential Needs for Transition of Care: none noted per 05/16 IDR Transportation: family will provide Transportation Anticipated: family or friend will provide Concerns to be Addressed: no discharge needs identified Assessment: Patient is admitted to vascular surg service for left lower extremity limb ischemia Plan: Per PT OT recommendations . Has used [facility] in the past. A member of the Care Management team will continue to monitor progress, follow for continuity of care and assist with transition of care planning. Ifrah Bell RN BSN Cloth Examiner MachinePrivate Secretary of Care Management Pager [phone] * Brief Op Note - Erin Garza MD - 05/15/2022 5:04 PM EDT Brief Operative Note Patient Name: Koko Zamora : [id number] MR#: [id number] Case Date: 05/15/2022 Surgeon: Surgeon(s) and Role: [...] Operative Note Patient Name: Koko Zamora : [id number] MR#: [id number] Case Date: 05/15/2022 Surgeon: Surgeon(s) and Role: [...] Text Report Department: Vascular Surgery Lab Patient: [id number] (KOKO ZAMORA) CPT: 78558 Referring Physician: FITO SUMMERS ?? Phone: Indications: s/p L PHOTOGRAPHIC ENGINEER endart. Diabetes mellitus: no Findings: Right [...] 12:35 PM EDT) UF Heparin 0.42 IU/mL [facility] Comment: Heparin [...] Lab Fito Summers MD HEMATOLOGY ORDERABLE S [facility] [place] [address] * Differential, Automated (05/21/2022 6:15 AM EDT) Neutrophil % 58.8 % [facility] Neutrophil Absolute 3.97 1.70 - 6.10 x10(3)/[facility] Lymph % 25.2 % [facility] Lymphocytes Abs 1.7 0.9 - 3.2 x10(3)/[facility] Monocyte % 12.9 % [facility] Monocyte Abs 0.9 0.3 - 0.9 x10(3)/[facility] Eos % 2.1 % [facility] Eosinophils Abs 0.1 0.0 - 0.4 x10(3)/[facility] Basophil % 0.4 % [facility] Baso Absolute 0.0 0.0 - 0.1 x10(3)/[facility] Immature Gran % 0.60 % [facility] Comment: Immature granulocytes(IG's)percentage and absolute count will include metamyelocytes, myelocytes, and promyelocytes. Blood smears from CBCs yielding IG's will be scanned manually for concordance. If this scan disagrees with the automated IG or if promyelocytes are noted, a manual differential will be performed. Immature Gran Absolute 0.04 0.00 - 0.04 x10(3)/[facility] Blood 05/21/2022 6:15 AM EDT 05/21/2022 6:38 AM EDT Narrative Resulting Agency Comment Spec In Lab Edward Rodríguez MD HEMATOLOGY ORDER NICK [facility] [place] [address] * (ABNORMAL) Hemogram (05/21/2022 6:15 AM EDT) [facility] White Blood Cell 6.8 4.0 - 9.5 x10(3)/ L [facility] Red Blood Cell 3.59(L) 4.58 - 5.54 x10(6)/ L [facility] Hemoglobin 11.8(L) 13.7 - 16.5 g/dL [facility] Hematocrit 34.5(L) 40.5 - 48.5 % [facility] Mean Cell Volume 96.1(H) 82.9 - 93.1 [facility] Mean Cell Hemoglobin 32.9(H) 27.5 - 32.1 pg [facility] Mean Cell Hemoglobin Concentration 34.2 32.0 - 35.7 g/dL [facility] Platelet 198 145 - 357 x10(3)/[facility]ORAT[facility] RDW Standard Deviation 44.9 36.0 - 45.0 [facility] RDW coefficient of variation 12.6 11.4 - 13.8 % [facility] Mean Platelet Volume 10.0 7.6 - 12.9 [facility] NRBC% auto 0.3 % [facility] NRBC Absolute 0.020(H) 0.000 - 0.000 x10(3)/[facility] Blood 05/21/2022 6:15 AM EDT 05/21/2022 6:38 AM EDT Narrative Resulting Agency Comment Spec In Lab Edward Rodríguez MD HEMATOLOGY ORDER NICK [facility] [place] [address] * EKG 12 Lead (05/20/2022 7:04 PM EDT) Ventricular rate 101 BPM MUSE SYSTEM QRS Duration 116 ms MUSE SYSTEM Q-T Interval 378 ms MUSE SYSTEM QTC Calculated (Bezet) 490 ms MUSE SYSTEM Calculated R [place] -53 degrees MUSE SYSTEM Calculated T [place] 101 degrees MUSE SYSTEM INTERPRETATION Atrial fibrillation [...] Modality Other Narrative 05/20/2022 7:09 PM EDT ?[facility] ? Cardiac Catheterization/Intervention Report ? Patient Name: ZamoraKoko ? Procedure Date: 05/20/2022 ? A #: [id number] ? Primary Physician: Abundio Servin ? Case #: [id number] ? File Name: [id number] ? Catheterization Order Number: [id number] ? [facility] ? Final Report [place], [place] ? Patient Name: ? Koko J. Zamora ? ID#: ?[id number] ? : ?1940 ? Procedure Date: ? [...] was Urgent. The indication for ?the director of laboratory operations visit is cardiomyopathy. Chest pain symptom assessment [...] ?3.5 guiding catheter and a 3.5 Fr [place] [address] ??20 Mhz. ??Imaging ?was successful. ??Image [...] A premounted 2.75 x 30 mm [place]y [place] (AMPARO) was deployed ? with a maximum [...] may require ?modification of this regimen. Consult [facility] Procedure Note Abundio Servin MD - 07/12/2022 [facility] Cardiac Catheterization/Intervention Report Patient Name: Sera Koko SullivanAlmita Procedure Date: 05/20/2022 A #: [id number] Primary Physician: Abundio Servin Case #: File Name: [id number] Catheterization Order Number: [id number] [facility] FinalReport [place], [place] Patient Name: Koko Zamora ID#:[id number] :1940 Procedure Date: May 20, 2022 Case [...] diagnostic procedure was Urgent. The indicationfor the director of laboratory operations visit is cardiomyopathy. Chest pain symptom assessmentwas: [...] 3.5 guiding catheter and a 3.5 Fr [place] [address] 20 Mhz.Imaging was successful. Image quality [...] The lesion was predilated with a 2.00mm [id number] MM balloon with a maximum inflation pressure of 12atmospheres. A premounted 2.75 x 30 mm [place] (AMPARO) wasdeployed with a maximum inflation pressure [...] situation mayrequire modification of this regimen. Consult [facility] [place]iology[place] questions. The 1 year bleeding [...] * POCT Glucose (05/20/2022 5:42 PM EDT) [facility] Glucose, POC 123 65 - 199 mg/dL [facility] Comment: Supplemental ranges: <140 mg/dL before meals <180 mg/dL all other times of the day Blood 05/20/2022 5:42 PM EDT 05/20/2022 5:42 PM EDT Fito Summers MD POINT OF CARE TEST O RDERABLES [facility] [place] [address] * (ABNORMAL) BMP w/fasting Glucose (05/20/2022 10:50 AM EDT) Glucose Fasting 152(H) 65 - 99 mg/dL [facility] Comment: ?Fasting* Glucose Interpretive Criteria [...] of Diabetes Mellitus, Position Statement from the [employer]. ??Diabetes Care, Volume 33, Supplement 1, Nov 2009 Blood Urea Nitrogen 11 10 - 20 mg/dL [facility] Creatinine 0.63(L) 0.80 - 1.50 mg/dL [facility] 107 mmol/L [facility] Carbon Dioxide 24 22 - 31 mmol/L [facility] Anion Gap 10 5 - 15 mmol/L [facility] Calcium 8.7 8.5 - 10.5 mg/dL [facility] Est Glomerular Filtration Rate 97 >=60 mL/min/1. 73 m?? [facility] Comment: [...] ORDERABLES Performing Organization Address [facility] Co de Phone Number [facility] [place] [address] * Heparin (unfractionated) Level (05/20/2022 5:02 AM EDT) UF Heparin 0.57 IU/mL [facility] Comment: Heparin [...] HEMATOLOGY ORDERABLE S Performing Organization Address City/[facility]/ZIP Co de Phone Number [facility] [place] [address] * (ABNORMAL) Differential, Automated (05/20/2022 5:02 AM EDT) [facility] Neutrophil % 58.1 % [facility] Neutrophil Absolute 4.52 1.70 - 6.10 x10(3)/ L [facility] Lymph % 24.1 % [facility] Lymphocytes Abs 1.9 0.9 - 3.2 x10(3)/ L [facility] Monocyte % 13.8 % [facility] Monocyte Abs 1.1(H) 0.3 - 0.9 x10(3)/[facility] Eos % 2.6 % [facility] Eosinophils Abs 0.2 0.0 - 0.4 x10(3)/[facility] Basophil % 0.8 % [facility] Baso Absolute 0.1 0.0 - 0.1 x10(3)/[facility] Immature Gran % 0.60 % [facility] Comment: Immature granulocytes(IG's)percentage and absolute count will include metamyelocytes, myelocytes, and promyelocytes. Blood smears from CBCs yielding IG's will be scanned manually for concordance. If this scan disagrees with the automated IG or if promyelocytes are noted, a manual differential will be performed. Immature Gran Absolute 0.05(H) 0.00 - 0.04 x10(3)/ L [facility] Blood 05/20/2022 5:02 AM EDT 05/20/2022 5:19 AM EDT Narrative Resulting Agency Comment Spec In Lab Edward Rodríguez MD HEMATOLOGY ORDER NICK [facility] [place] [address] * (ABNORMAL) Hemogram (05/20/2022 5:02 AM EDT) [facility] White Blood Cell 7.8 4.0 - 9.5 x10(3)/mc L [facility] Red Blood Cell 3.53(L) 4.58 - 5.54 x10(6)/mc L [facility] Hemoglobin 11.4(L) 13.7 - 16.5 g/dL [facility] Hematocrit 34.3(L) 40.5 - 48.5 % [facility] Mean Cell Volume 97.2(H) 82.9 - 93.1 fL [facility] Mean Cell Hemoglobin 32.3(H) 27.5 - 32.1 pg [facility] Mean Cell Hemoglobin Concentration 33.2 32.0 - 35.7 g/dL [facility] Platelet 181 145 - 357 x10(3)/[facility] RDW Standard Deviation 46.4(H) 36.0 - 45.0 [facility] RDW coefficient of variation 13.0 11.4 - 13.8 % [facility] Mean Platelet Volume 10.4 7.6 - 12.9 fL [facility] NRBC% auto 0.0 % [facility] NRBC Absolute 0.000 0.000 - 0.000 x10(3)/[facility] Blood 05/20/2022 5:02 AM EDT 05/20/2022 5:19 AM EDT Narrative Resulting Agency Comment Spec In Lab Edward Rodríguez MD HEMATOLOGY ORDER NICK [facility] [place] [address] * Heparin (unfractionated) Level (05/19/2022 3:26 AM EDT) Pathologist [facility] UF Heparin 0.59 IU/mL [facility] Comment: Heparin [...] Lab Fito Summers MD HEMATOLOGY ORDERABLE S [facility] [place] [address] * (ABNORMAL) Differential, Automated (05/19/2022 3:26 AM EDT) Neutrophil % 62.1 % [facility] Neutrophil Absolute 4.59 1.70 - 6.10 x10(3)/mc L [facility] Lymph % 22.1 % [facility] Lymphocytes Abs 1.6 0.9 - 3.2 x10(3)/mc L [facility] Monocyte % 13.5 % [facility] Monocyte Abs 1.0(H) 0.3 - 0.9 x10(3)/mc L [facility] Eos % 1.3 % [facility] Eosinophils Abs 0.1 0.0 - 0.4 x10(3)/mc L [facility] Basophil % 0.5 % [facility] Baso Absolute 0.0 0.0 - 0.1 x10(3)/mc L [facility] Immature Gran % 0.50 % [facility] Comment: Immature granulocytes(IG's)percentage and absolute count will include metamyelocytes, myelocytes, and promyelocytes. Blood smears from CBCs yielding IG's will be scanned manually for concordance. If this scan disagrees with the automated IG or if promyelocytes are noted, a manual differential will be performed. Immature Gran Absolute 0.04 0.00 - 0.04 x10(3)/ L [facility] Blood 05/19/2022 3:26 AM EDT 05/19/2022 3:59 AM EDT Narrative Resulting Agency Comment Spec In Lab Edward Rodríguez MD HEMATOLOGY ORDER NICK [facility] [place] [address] * (ABNORMAL) Hemogram (05/19/2022 3:26 AM EDT) White Blood Cell 7.4 4.0 - 9.5 x10(3)/[facility] Red Blood Cell 3.74(L) 4.58 - 5.54 x10(6)/ L [facility] Hemoglobin 12.1(L) 13.7 - 16.5 g/dL [facility] Hematocrit 36.4(L) 40.5 - 48.5 % [facility] Mean Cell Volume 97.3(H) 82.9 - 93.1 fL [facility] Mean Cell Hemoglobin 32.4(H) 27.5 - 32.1 pg [facility] Mean Cell Hemoglobin Concentration 33.2 32.0 - 35.7 g/dL [facility] Platelet 168 145 - 357 x10(3)/ L [facility] RDW Standard Deviation 46.9(H) 36.0 - 45.0 fL [facility] RDW coefficient of variation 13.0 11.4 - 13.8 % [facility] Mean Platelet Volume 10.5 7.6 - 12.9 [facility] NRBC% auto 0.0 % [facility] NRBC Absolute 0.000 0.000 - 0.000 x10(3)/mc L [facility] Blood 05/19/2022 3:26 AM EDT 05/19/2022 3:59 AM EDT Narrative Resulting Agency Comment Spec In Lab Edward Rodríguez MD HEMATOLOGY ORDER NICK Performing Organization Address [facility] Co de Phone Number [facility] [place] [address] * TSH (05/18/2022 8:00 PM EDT) Thyroid Stimulating Hormone 2.27 0.27 - 4.20 mcIU/mL [facility] Comment: Reference Interval (mcIU/mL): Females: ??First Trimester: 0.23-3.88 ??Second Trimester: 0.22-3.90 ??Third Trimester: 0.44-4.66 Blood 05/18/2022 8:00 PM EDT 05/18/2022 8:06 PM EDT Narrative Resulting Agency Comment Spec In Lab Fito Summers MD CHEMISTRY ORDERABLES Performing Organization Address [facility] Phone Number [facility] [place] [address] * (ABNORMAL) Differential, Automated (05/18/2022 3:34 AM EDT) Neutrophil % 67.2 % [facility] Neutrophil Absolute 5.89 1.70 - 6.10 x10(3)/mc L [facility] Lymph % 17.1 % [facility] Lymphocytes Abs 1.5 0.9 - 3.2 x10(3)/mc L [facility] Monocyte % 13.6 % [facility] Monocyte Abs 1.2(H) 0.3 - 0.9 x10(3)/mc L [facility] Eos % 1.0 % [facility] Eosinophils Abs 0.1 0.0 - 0.4 x10(3)/mc L [facility] Basophil % 0.6 % [facility] Baso Absolute 0.0 0.0 - 0.1 x10(3)/[facility] Immature Gran % 0.50 % [facility] Comment: Immature granulocytes(IG's)percentage and absolute count will include metamyelocytes, myelocytes, and promyelocytes. Blood smears from CBCs yielding IG's will be scanned manually for concordance. If this scan disagrees with the automated IG or if promyelocytes are noted, a manual differential will be performed. Immature Gran Absolute 0.04 0.00 - 0.04 x10(3)/[facility] Blood 05/18/2022 3:34 AM EDT 05/18/2022 3:48 AM EDT Narrative Resulting Agency Comment Spec In Lab Edward Rodríguez MD HEMATOLOGY ORDER NICK [facility] [place] [address] * (ABNORMAL) Hemogram (05/18/2022 3:34 AM EDT) White Blood Cell 8.8 4.0 - 9.5 x10(3)/[facility] Red Blood Cell 3.45(L) 4.58 - 5.54 x10(6)/[facility] Hemoglobin 11.2(L) 13.7 - 16.5 g/dL [facility] Hematocrit 33.0(L) 40.5 - 48.5 % [facility] Mean Cell Volume 95.7(H) 82.9 - 93.1 fL [facility] Mean Cell Hemoglobin 32.5(H) 27.5 - 32.1 pg [facility] Mean Cell Hemoglobin Concentration 33.9 32.0 - 35.7 g/dL [facility] Platelet 130(L) 145 - 357 x10(3)/[facility] RDW Standard Deviation 46.2(H) 36.0 - 45.0 fL [facility] RDW coefficient of variation 13.2 11.4 - 13.8 % [facility] Mean Platelet Volume 10.8 7.6 - 12.9 [facility] NRBC% auto 0.0 % [facility] NRBC Absolute 0.000 0.000 - 0.000 x10(3)/mc L [facility] Blood 05/18/2022 3:34 AM EDT 05/18/2022 3:48 AM EDT Narrative Resulting Agency Comment Spec In Lab Edward Rodríguez MD HEMATOLOGY ORDER NICK Performing Organization Address [facility]/[place] [address] * Heparin (unfractionated) Level (05/18/2022 3:34 AM EDT) UF Heparin 0.59 IU/mL [facility] Comment: Heparin [...] HEMATOLOGY ORDERABLE S Performing Organization Address City/[facility]/ZIP Co de Phone Number [facility] [place] [address] * Magnesium (05/17/2022 3:33 AM EDT) Magnesium 0.76 0.69 - 1.07 mmol/L [facility] Blood Venous Draw / Unknown 05/17/2022 3:33 AM EDT 05/17/2022 4:05 AM EDT Narrative Resulting Agency Comment Spec In Lab Dottie Hill APRN CHEMISTRY ORDERABL ES [facility] [address] [place] [place] [address] * (ABNORMAL) Basic Metabolic Panel (non-fasting) (05/17/2022 3:33 AM EDT) Glucose 158 65 - 199 mg/dL [facility] Comment:Diabetes: >=200 mg/d L plus symptoms Blood Urea Nitrogen 12 10 - 20 mg/dL [facility] Creatinine 0.74(L) 0.80 - 1.50 mg/dL [facility] 107 mmol/L [facility] Carbon Dioxide 25 22 - 31 mmol/L [facility] Anion Gap 10 5 - 15 mmol/L [facility] Calcium 8.4(L) 8.5 - 10.5 mg/dL [facility] Est Glomerular Filtration Rate 92 >=60 mL/min/1. 73 m?? [facility] Comment: [...] Lab Fito Summers MD CHEMISTRY ORDERABLES [facility] [place] [address] * (ABNORMAL) Differential, Automated (05/17/2022 3:33 AM EDT) Neutrophil % 65.5 % [facility] Neutrophil Absolute 6.84(H) 1.70 - 6.10 x10(3)/mc L [facility] Lymph % 19.7 % [facility] Lymphocytes Abs 2.1 0.9 - 3.2 x10(3)/mc L [facility] Monocyte % 13.1 % [facility] Monocyte Abs 1.4(H) 0.3 - 0.9 x10(3)/mc L [facility] Eos % 0.6 % [facility] Eosinophils Abs 0.1 0.0 - 0.4 x10(3)/mc L [facility] Basophil % 0.6 % [facility] Baso Absolute 0.1 0.0 - 0.1 x10(3)/mc L [facility] Immature Gran % 0.50 % [facility] Comment: Immature granulocytes(IG's)percentage and absolute count will include metamyelocytes, myelocytes, and promyelocytes. Blood smears from CBCs yielding IG's will be scanned manually for concordance. If this scan disagrees with the automated IG or if promyelocytes are noted, a manual differential will be performed. Immature Gran Absolute 0.05(H) 0.00 - 0.04 x10(3)/ L [facility] Blood 05/17/2022 3:33 AM EDT 05/17/2022 3:53 AM EDT Narrative Resulting Agency Comment Spec In Lab Edward Rodríguez MD HEMATOLOGY ORDER NICK [facility] [place] [address] * (ABNORMAL) Hemogram (05/17/2022 3:33 AM EDT) White Blood Cell 10.4(H) 4.0 - 9.5 x10(3)/ L [facility] Red Blood Cell 3.72(L) 4.58 - 5.54 x10(6)/[facility] Hemoglobin 12.0(L) 13.7 - 16.5 g/dL [facility] Hematocrit 36.4(L) 40.5 - 48.5 % [facility] Mean Cell Volume 97.8(H) 82.9 - 93.1 fL [facility] Mean Cell Hemoglobin 32.3(H) 27.5 - 32.1 pg [facility] Mean Cell Hemoglobin Concentration 33.0 32.0 - 35.7 g/dL [facility] Platelet 149 145 - 357 x10(3)/[facility] RDW Standard Deviation 48.7(H) 36.0 - 45.0 fL [facility] RDW coefficient of variation 13.5 11.4 - 13.8 % [facility] Mean Platelet Volume 10.6 7.6 - 12.9 fL [facility] NRBC% auto 0.0 % [facility] NRBC Absolute 0.000 0.000 - 0.000 x10(3)/ L [facility] Blood 05/17/2022 3:33 AM EDT 05/17/2022 3:53 AM EDT Narrative Resulting Agency Comment Spec In Lab Edward Rodríguez MD HEMATOLOGY ORDER NICK Performing Organization Address [facility]/ZIP Co de Phone Number [facility] [place] [address] * (ABNORMAL) Urinalysis Microscopic Exam (05/16/2022 11:15 PM EDT) RBC, Urine 8(H) 0 - 3 /HPF [facility] WBC, Urine 2 0 - 3 /HPF [facility] Clean Catch Urine 05/16/2022 11:15 PM EDT 05/16/2022 11:30 PM EDT Narrative Resulting Agency Comment Spec In Lab Barbie Ashraf MD URINE ORDERABLES Performing Organization Address [facility] Co de Phone Number [facility] [place] [address] * (ABNORMAL) Urinalysis with reflex Culture (05/16/2022 11:15 PM EDT) Glucose, Urine Dipstick Negative Negative mg/dL [facility] Protein, Urine Dipstick Negative Negative mg/dL [facility] Bilirubin, Urine Dipstick Negative Negative mg/dL [facility] Comment: Clinical correlation required for positive Urine Bilirubin results as false positive may occur with some drugs and drug related products. If a false positive is suspected a serum total bilirubin should be considered if clinically indicated. Urobilinogen, Urine Dipstick Normal Normal mg/dL [facility] pH, Urn (dipstick) 6.0 5.0 - 8.0 [facility] Blood, Urine Dipstick Small(A) Negative mg/dL [facility] Ketone, Urine Dipstick Trace(A) Negative mg/dL [facility] Nitrite, Urine Dipstick Negative Negative [facility] Leukocytes, Urine Dipstick Negative Negative [facility] Appearance, Urine Dipstick Clear Clear [facility] Specific [place] Urine Automated 1.021 1.005 - 1.030 [facility] Color, Urine Dipstick Yellow Yellow [facility] Reflex to Culture No [facility] Clean Catch Urine 05/16/2022 11:15 PM EDT 05/16/2022 11:30 PM EDT Narrative Resulting Agency Comment Spec In Lab Fito Summers MD URINE ORDERABLES Performing Organization Address [facility] Co de Phone Number [facility] [place] [address] * Heparin (unfractionated) Level (05/16/2022 10:59 PM EDT) UF Heparin 0.65 IU/mL [facility] Comment: Specimen drawn more than [...] HEMATOLOGY ORDERABLE S Performing Organization Address City/[facility]/ZIP Co de Phone Number [facility] [place] [address] * XR Chest One View (05/16/2022 9:14 [...] ? Electronically signed by: Tiffanie George MD, [facility] ([phone]), at 05/16/2022 9:27 PM Narrative 05/16/2022 9:27 [...] first. Electronically signed by: Tiffanie George MD, [facility]([phone]), at 05/16/2022 9:27 PM Fito Summers MD IMG DX ORDERABLES * EKG 12 Lead (05/16/2022 8:57 PM EDT) Ventricular rate 117 BPM MUSE SYSTEM QRS Duration 112 ms MUSE SYSTEM Q-T Interval 346 ms MUSE SYSTEM QTC Calculated (Bezet) 482 ms MUSE SYSTEM Calculated R [place] -48 degrees MUSE SYSTEM Calculated T [place] 111 degrees MUSE SYSTEM INTERPRETATION Atrial fibrillation with rapid ventricular response Left anterior fascicular block Minimal voltage criteria for LVH, may be normal variant ( [place] product ) Nonspecific ST and T wave [...] 4:34 PM EDT) UF Heparin 0.53 IU/mL [facility] Comment: Heparin [...] S Performing Organization Address [facility]/State/ZIP Co de Phone Number [facility] [place] [address] * ECHO COMPLETE W CONTRAST (05/16/2022 12:49 PM EDT) EF 28 HEARTLAB SYSTEM Anatomical Region Laterality Modality Cardiac Other 05/16/2022 11:2 2 AM EDT Narrative 05/16/2022 1:54 PM EDT ?[facility] ?[address] ? [place], [place] [address] ?Voice: ?Fax: ? Echocardiogram Report Name: KOKO ZAMORA Laurie ?Study Date: 05/16/2022 11:22 AM ? Patient Location: [facility] 0303 : 1940 ? Height: 67.5 in ? Account: [id number] Age: 81 yrs ? Weight: 176 lb Gender: Male ?BSA: 1.9 m2 Ordering Physician: FITO SUMMERS Referring Physician: MAIK FLORIAN Performed By: Jolene Bernard RDCS Exam Location: [facility]. Interpretation Summary Left ventricle is mildly [...] and LV systolic dysfunction are new. Procedure Complete-[id number]. Image enhancement Optison was used for both [...] Procedure Note Gladys Jaime MD - 05/16/2022 [facility] [place] [address] Voice: Fax: Echocardiogram Report Name: ZAMORAKOKO Study Date: 1:22 AM Patient Location: [id number] : 1940 Height: 67.5 in Account: [id number] Age: 81 yrs Weight: 176 lb Gender: Male BSA: 1.9 m2 Ordering Physician: FITO SUMMERS Referring Physician: MAIK FLORIAN Performed By: Jolene Bernard RDCS Exam Location: [facility]. Interpretation Summary Left ventricle is mildly [...] moderate and LV systolicdysfunction are new. Procedure Complete-[id number]. Image enhancement Optison was used for both [...] 3:01 AM EDT) Neutrophil % 78.8 % [facility] Neutrophil Absolute 9.11(H) 1.70 - 6.10 x10(3)/mc L [facility] Lymph % 9.4 % [facility] Lymphocytes Abs 1.1 0.9 - 3.2 x10(3)/ L [facility] Monocyte % 10.9 % [facility] Monocyte Abs 1.3(H) 0.3 - 0.9 x10(3)/[facility] Eos % 0.0 % [facility] Eosinophils Abs 0.0 0.0 - 0.4 x10(3)/[facility] Basophil % 0.3 % [facility] Baso Absolute 0.0 0.0 - 0.1 x10(3)/[facility] Immature Gran % 0.60 % [facility] Comment: Immature granulocytes(IG's)percentage and absolute count will include metamyelocytes, myelocytes, and promyelocytes. Blood smears from CBCs yielding IG's will be scanned manually for concordance. If this scan disagrees with the automated IG or if promyelocytes are noted, a manual differential will be performed. Immature Gran Absolute 0.07(H) 0.00 - 0.04 x10(3)/[facility] Blood 05/16/2022 3:01 AM EDT 05/16/2022 3:36 AM EDT Narrative Resulting Agency Comment Spec In Lab Erin Garza MD HEMATOLOGY ORDERABLE S [facility] [place] [address] * (ABNORMAL) Hemogram (05/16/2022 3:01 AM EDT) White Blood Cell 11.6(H) 4.0 - 9.5 x10(3)/[facility] LABORATORY Red Blood Cell 3.62(L) 4.58 - 5.54 x10(6)/ L [facility] Hemoglobin 12.0(L) 13.7 - 16.5 g/dL [facility] Hematocrit 35.3(L) 40.5 - 48.5 % [facility] Mean Cell Volume 97.5(H) 82.9 - 93.1 fL [facility] Mean Cell Hemoglobin 33.1(H) 27.5 - 32.1 pg [facility] Mean Cell Hemoglobin Concentration 34.0 32.0 - 35.7 g/dL [facility] Platelet 151 145 - 357 x10(3)/mc L [facility] RDW Standard Deviation 47.6(H) 36.0 - 45.0 fL [facility] RDW coefficient of variation 13.3 11.4 - 13.8 % [facility] Mean Platelet Volume 10.5 7.6 - 12.9 fL [facility] NRBC% auto 0.0 % [facility] NRBC Absolute 0.000 0.000 - 0.000 x10(3)/mc L [facility] Blood 05/16/2022 3:01 AM EDT 05/16/2022 3:36 AM EDT Narrative Resulting Agency Comment Spec In Lab Erin Garza MD HEMATOLOGY ORDERABLE S Performing Organization Address City/[facility]/ZIP Co de Phone Number [facility] [place] [address] * Phosphorus (05/16/2022 3:01 AM EDT) Phosphorus 3.7 2.5 - 4.5 mg/dL [facility] Blood 05/16/2022 3:01 AM EDT 05/16/2022 3:36 AM EDT Narrative Resulting Agency Comment Spec In Lab Fito Summers MD CHEMISTRY ORDERABLES Performing Organization Address City/[facility]/ZIP Co de Phone Number [facility] [place] [address] * Magnesium (05/16/2022 3:01 AM EDT) Magnesium 0.77 0.69 - 1.07 mmol/L [facility] Blood 05/16/2022 3:01 AM EDT 05/16/2022 3:36 AM EDT Narrative Resulting Agency Comment Spec In Lab Fito Summers MD CHEMISTRY ORDERABLES [facility] [place] [address] * (ABNORMAL) Basic Metabolic Panel (non-fasting) (05/16/2022 3:01 AM EDT) Glucose 222(H) 65 - 199 mg/dL [facility] Comment:Diabetes: >=200 mg/d L plus symptoms Blood Urea Nitrogen 12 10 - 20 mg/dL [facility] Creatinine 0.66(L) 0.80 - 1.50 mg/dL [facility] Chloride 108(H) 98 - 107 mmol/L [facility] Carbon Dioxide 22 22 - 31 mmol/L [facility] Anion Gap 8 5 - 15 mmol/L [facility] Calcium 8.2(L) 8.5 - 10.5 mg/dL [facility] Est Glomerular Filtration Rate 95 >=60 mL/min/1. 73 m?? [facility] Comment: [...] Lab Fito Summers MD CHEMISTRY ORDERABLES [facility] [place] [address] * (ABNORMAL) BLOOD GAS 2 ARTERIAL (05/15/2022 3:33 PM EDT) pH, Arterial 7.33(L) 7.35 - 7.45 [facility] PCO2, Arterial 41 35 - 45 mmHg [facility] PO2, Arterial 131(H) 85 - 104 mmHg [facility] Bicarbonate, Arterial 21.1 20.0 - 26.0 mmol/L [facility] Base Excess, Arterial -4.8(L) -3.0 - 3.0 mmol/L [facility] Hgb Blood Gas 13.4(L) 13.7 - 16.5 g/dL [facility] Oxyhemoglobin, Arterial 96.9 94.0 - 97.0 % [facility] Carboxyhemoglob in, Arterial 1.4 % [facility] Comment: Nonsmokers: 0.5-1.5% COHB Smokers: Variable, but usually less than 10% Toxic: 20-30% COHB Lethal: Greater than 60% COHB Methemoglobin, Arterial 0.3 <=1.5 % [facility] [...] Blood 113(H) 98 - 107 mmol/L [facility] Gluc Whole Bld 136 65 - 199 mg/dL [facility] Comment:Diabetes: >=200 mg/d L plus symptoms. Lactate WB 2.0 0.5 - 2.2 mmol/L [facility] Blood 05/15/2022 3:33 PM EDT 05/15/2022 3:[address] Jamel Torre MD POINT OF CARE TEST O RDERABLES [facility] [place] [address] * (ABNORMAL) BLOOD GAS 2 ARTERIAL (05/15/2022 2:06 PM EDT) pH, Arterial 7.39 7.35 - 7.45 [facility] PCO2, Arterial 35 35 - 45 mmHg [facility] PO2, Arterial 135(H) 85 - 104 mmHg [facility] Bicarbonate, Arterial 20.8 20.0 - 26.0 mmol/L [facility] Base Excess, Arterial -4.2(L) -3.0 - 3.0 mmol/L [facility] Hgb Blood Gas 14.5 13.7 - 16.5 g/dL [facility] Oxyhemoglobin, Arterial 97.2(H) 94.0 - 97.0 % [facility] Carboxyhemoglob in, Arterial 1.2 % [facility] Comment: Nonsmokers: 0.5-1.5% COHB Smokers: Variable, but usually less than 10% Toxic: 20-30% COHB Lethal: Greater than 60% COHB Methemoglobin, Arterial 0.3 <=1.5 % [facility] [...] Blood 1.12(L) 1.15 - 1.33 mmol/L [facility] Comment: Note: ??Total bilirubin higher than 20 mg/dL may lead to falsely low ionized calcium. CL Whole Blood 109(H) 98 - 107 mmol/L [facility] Gluc Whole Bld 152 65 - 199 mg/dL [facility] Comment:Diabetes: >=200 mg/d L plus symptoms. Lactate WB 1.5 0.5 - 2.2 mmol/L [facility] Blood 05/15/2022 2:06 PM EDT 05/15/2022 2:[address] Jamel Torre MD POINT OF CARE TEST O RDERABLES Performing Organization Address [facility]/ZIP Co de Phone Number [facility] [place] [address] * (ABNORMAL) Prothrombin Time (05/15/2022 12:30 PM EDT) Prothrombin Time 12.9(H) 9.4 - 12.5 sec [facility] International Normalization Ratio 1.1 [facility] Comment: [...] DO HEMATOLOGY ORDERABLE S Performing Organization Address [facility]/ZIP Co de Phone Number [facility] [place] [address] * (ABNORMAL) APTT (05/15/2022 12:30 PM EDT) Partial Thromboplastin Time 76(H) 25 - 37 sec [facility] HEMATOLOGY ORDERABLE S Performing Organization Address City/[facility]/ZIP Co de Phone Number [facility] [place] [address] * Gold Tube HOLD (05/15/2022 12:20 PM EDT) [facility] Gold Hold Sample in lab. [facility] Blood No Charge / Unknown 05/15/2022 12:20 PM EDT 05/15/2022 12:20 PM EDT Lc TRIPP CHEMISTRY ORDERABLES Performing Organization Address [facility]/ZIP Co de Phone Number [facility] [place] [address] * Type and Screen Validity (05/15/2022 12:00 PM EDT) T&S only valid at [facility]ORY Comment:This Type and Screen result is only valid at the [facility] Blood 05/15/2022 12:0 0 PM EDT 05/15/2022 12:17 PM EDT Narrative Resulting Agency Comment Spec In Lab Lc TRIPP BLOOD BANK LAB ORDER NICK Performing Organization Address City/[facility]/ZIP Co de Phone Number [facility] [place] [address] * ABORH Recheck Status (05/15/2022 12:00 PM EDT) ABORH Recheck Order Order Placed [facility] ABORH Type Recheck Complete [facility] Blood 05/15/2022 12:0 0 PM EDT 05/15/2022 12:17 PM EDT Narrative Resulting Agency Comment Spec In Lab Lc TRIPP BLOOD BANK LAB ORDER NICK [facility] [place] [address] * CK (05/15/2022 12:00 PM EDT) Creatine Kinase 87 0 - 200 unit/L [facility] Blood Venous Draw / Unknown 05/15/2022 12:00 PM EDT 05/15/2022 12:19 PM EDT Narrative Resulting Agency Comment Spec In Lab Fito Summers MD CHEMISTRY ORDERABLES Performing Organization Address City/[facility]/ZIP Co de Phone Number [facility] [place] [address] * Antibody screen (05/15/2022 12:00 PM EDT) Ab Screen Interp Negative [facility] Expires at [id number] on: 05/18/2022 [facility] Blood 05/15/2022 12:0 0 PM EDT 05/15/2022 12:17 PM EDT Narrative Resulting Agency Comment Spec In Lab Lc TRIPP BLOOD BANK LAB ORDER NICK [facility] [place] [address] * ABO/Rh Typing (05/15/2022 12:00 PM EDT) ABORH Type O Pos [facility] Blood 05/15/2022 12:0 0 PM EDT 05/15/2022 12:17 PM EDT Narrative Resulting Agency Comment Spec In Lab Lc TRIPP BLOOD BANK LAB ORDER NICK [facility] [place] [address] * (ABNORMAL) Differential, Automated (05/15/2022 12:00 PM EDT) Neutrophil % 79.4 % [facility] Neutrophil Absolute 7.49(H) 1.70 - 6.10 x10(3)/[facility] LABORAT[facility] Lymph % 11.3 % [facility] Lymphocytes Abs 1.1 0.9 - 3.2 x10(3)/[facility] Monocyte % 7.8 % [facility] Monocyte Abs 0.7 0.3 - 0.9 x10(3)/[facility] Eos % 0.6 % [facility] Eosinophils Abs 0.1 0.0 - 0.4 x10(3)/[facility] Basophil % 0.6 % [facility] Baso Absolute 0.1 0.0 - 0.1 x10(3)/[facility] Immature Gran % 0.30 % [facility] Comment: Immature granulocytes(IG's)percentage and absolute count will include metamyelocytes, myelocytes, and promyelocytes. Blood smears from CBCs yielding IG's will be scanned manually for concordance. If this scan disagrees with the automated IG or if promyelocytes are noted, a manual differential will be performed. Immature Gran Absolute 0.03 0.00 - 0.04 x10(3)/ L [facility] Blood 05/15/2022 12:0 0 PM EDT 05/15/2022 12:19 PM EDT Narrative Resulting Agency Comment Spec In Lab Lc TRIPP HEMATOLOGY ORDERABLE S [facility] [place] [address] * (ABNORMAL) Hemogram (05/15/2022 12:00 PM EDT) White Blood Cell 9.4 4.0 - 9.5 x10(3)/mc L [facility] Red Blood Cell 4.48(L) 4.58 - 5.54 x10(6)/mc L [facility] Hemoglobin 14.5 13.7 - 16.5 g/dL [facility] Hematocrit 42.4 40.5 - 48.5 % [facility] Mean Cell Volume 94.6(H) 82.9 - 93.1 fL [facility] Mean Cell Hemoglobin 32.4(H) 27.5 - 32.1 pg [facility] Mean Cell Hemoglobin Concentration 34.2 32.0 - 35.7 g/dL [facility] Platelet 209 145 - 357 x10(3)/mc L [facility] RDW Standard Deviation 45.9(H) 36.0 - 45.0 [facility]ORY RDW coefficient of variation 13.1 11.4 - 13.8 % [facility] Mean Platelet Volume 10.5 7.6 - 12.9 [facility] NRBC% auto 0.0 % [facility] NRBC Absolute 0.000 0.000 - 0.000 x10(3)/mc L [facility] Blood 05/15/2022 12:0 0 PM EDT 05/15/2022 12:19 PM EDT Narrative Resulting Agency Comment Spec In Lab Lc TRIPP HEMATOLOGY ORDERABLE S [facility] [place] [address] * (ABNORMAL) Basic Metabolic Panel (non-fasting) (05/15/2022 12:00 PM EDT) Glucose 203(H) 65 - 199 mg/dL [facility] Comment:Diabetes: >=200 mg/d L plus symptoms Blood Urea Nitrogen 16 10 - 20 mg/dL [facility] 107 mmol/L [facility] Carbon Dioxide 23 22 - 31 mmol/L [facility] Anion Gap 11 5 - 15 mmol/L [facility] Calcium 8.5 8.5 - 10.5 mg/dL [facility] Est Glomerular Filtration Rate 89 >=60 mL/min/1. 73 m?? [facility] Comment: [...] Lab Jhonny Morales DO CHEMISTRY ORDERABLES [facility] [place] [address] documented in this encounter Visit Diagnoses Not [...] 0853 (Given - Provider: Barbie Joyce, RN)1750 ([facility] Hold - Provider: Admin Adt - Reason: Transfer to a Procedural area)1955 ([facility] [place] Unhold - Provider: Admin Adt)2004 (Given - [...] 0852 (Given - Provider: Barbie Joyce, DION)1750 ([facility] [place] Hold - Provider: Admin Adt - Reason: Transfer to a Procedural area)1955 ([facility] [place] Unhold - Provider: Admin Adt) 08 (Given [...] Provider: Barbie Joyce, DION - Reason: NPO)1750 ([facility] [place] Hold - Provider: Admin Adt - Reason: [...] Provider: Caroline Zamora RN)2008 (Given - Provider: Nursi Lester RN) 0853 (Given - Provider: Barbie [...] - Reason: Transfer to a Procedural area)1955 ([facility] [place] Unhold - Provider: Admin Adt) alum-mag hydroxide-simeth [...] - Reason: Transfer to a Procedural area)1955 ([facility] [place] Unhold - Provider: Admin Adt) clopidogreL (Plavix) [...] Routine documented in this encounter Care Teams Restaurant 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
--- OUTSIDE RECORDS SUMMARY | 2024-09-30 17:05 | XMS_ITS | Encounter Summary ---
Author [place] [address] Care Team Providers Care Sap Business Analyst Name Role Phone Bobby Das MD Primary Care Provider [phone] Reason for Referral * Diagnostic Test (Routine) - Closed Specialty Diagnoses / Procedures Referred By Contac t Referred To Contact Radiology Diagnoses Compression fracture of T9 vertebra, initial encounter Procedures IR Vertebroplasty Thoracic Single Level Alphonso Esquivel [facility] [place] [address] [place] [address] Referral ID Status Reason Start Date Expiration Date V isits Requested Visits Authorized [id number] Closed Specialty Service Requested 10/13/2020 04/13/2022 1 1 Reason for Visit * Diagnostic Test (Routine) - Closed Specialty Diagnoses / Procedures Referred By Contac t Referred To Contact Radiology Diagnoses Compression fracture of T9 vertebra, initial encounter Procedures IR Vertebroplasty Thoracic Single Level Alphonso Esquivel [facility] [place] [address] [facility] [place] [address] Referral ID Status Reason Start Date Expiration Date V isits Requested Visits Authorized [id number] Closed Specialty Service Requested 10/13/2020 04/13/2022 1 1 Encounter Details Date Type Department Care Team (Latest Contact Info) Description 10/25/2020 6:44 AM EST - 10/25/2020 11:59 PM EST Hospital En[place] [address] Alphonso Esquivel, [facility] [place] [address] Compression fracture of T9 vertebra, initial encounter [...] is during regular office hours, please call [phone]. If it is after regular office hours, or on weekends or holidays, please call [phone] and ask to speak to the Wellness Health Coach health concierge for Interventional Radiology. XXX You have received [...] : 1940 AGE: 80 y.o. Address: [address] [place] [address] (home) Mobile: No relevant phone numbers on file. Referring Provider: Alphonso Esquivel REASON FOR VISIT: Order Questions Answers Where will study be performed? [facility] Radiology [120] Is the patient [...] was made and a 13ga introducer needle (Elementum) was advanced through the right pedicle and to the ??T9 vertebral body during an intermittent fluoroscopic guidance. The Elementum biopsy cannula was advanced through the introducer needle and the system was advanced further into the vertebral body. The core biopsy sample was removed and sent in formalin. 10 cc 1% lidocaine was used for local anesthesia of the left pedicle entry site at the skin and periosteum overlying the ??T9 level. A small skin incision was made and a 13ga introducer needle (Elementum) was advanced through the left pedicle and [...] below. ? Electronically signed by: Matt Valverde [facility] ([phone]), at 10/25/2020 11:02 AM Procedure Note Matt [...] at the skin and periosteum overlying the [id number]. A small skin incision was made and a 13ga introducer needle (Elementum)was advanced through the right pedicle and to the T9 vertebral body duringan intermittent fluoroscopic guidance. The Elementum biopsy cannula wasadvanced through the introducer needle and the system was advanced further intothe vertebral body. The core biopsy sample was removed and sent in formalin. 10 cc 1% lidocaine was used for local anesthesia of the left pedicle entrysite at the skin and periosteum overlying the T9 level. A small skin incisionwas made and a 13ga introducer needle (Elementum) was advanced through theleft pedicle and to [...] number below. Electronically signed by: Matt Valverde [facility]([phone]), at 10/25/2020 11:02 AM Alphonso Esquivel DO [facility] IR ORDERABLES * Surgical Pathology Report (10/25/2020 8:26 AM EST) Final Diagnosis [id number] ? Location: [facility] The signing pathologist has (i) [...] [facility], [place], [place] DISCUSSION I see no neoplastic process [...] DO PATHOLOGY/CYTOLOGY O RADHA Performing Organization Address [facility] Co de Phone Number [facility] [place] [address] * Specimen to Pathology (10/25/2020 8:26 AM EST) AP Specimen 10/25/2020 8:26 AM EST 10/25/2020 8:26 AM EST Narrative [facility] - 10/25/2020 8:26 AM EST Specimen requisition ordered. ??Separate Pathology report to follow Alphonso Esquivel DO PATHOLOGY/CYTOLOGY O RADHA Performing Organization Address [facility] Co de Phone Number [facility] [place] [address] documented in this encounter Visit Diagnoses Diagnosis [...] mL/hr documented in this encounter Care Teams Sap Business Analyst Relationship Specialty Start Date End Date Bobby Das MD [address] [place] [address] [place] [phone] PCP - General 10/02/10 documented as of this encounter
--- OUTSIDE RECORDS SUMMARY | 2024-09-30 17:05 | XMS_ITS | Encounter Summary ---
Author Organization [facility] [place] [address] Care Team Providers Care Dumper Mold Cleaner Name Role Phone Bobby Das MD Primary Care Provider [phone] Encounter Details Date Type Department Care Team (Late st Contact Info) Description 07/13/2019 [place] [address] Alan Brink MD [facility] [place] [address] Gastrointestinal hemorrhage, unspecified gastrointestinal hemorrhage type (Primary [...] file Gets together: Not on file Attends latter-day service: Not on file Active member of [...] ORDERABLE S [facility] [place] [address] * (ABNORMAL) Hemogram (07/20/2019 8:18 AM EDT) [...] Mean Cell Volume 97.6(H) 82.9 - 93.1 [facility] LABORATORY Mean Cell Hemoglobin 32.9(H) 27.5 - 32.1 pg [facility] Mean Cell Hemoglobin Concentration 33.7 32.0 - 35.7 gm/dL [facility] Platelet 164 145 - 357 x10(3)/mc L [facility] RDW Standard Deviation 49.3(H) 36.0 - 45.0 [facility]ORY RDW coefficient of variation 13.6 11.4 - 13.8 % [facility] Mean Platelet Volume 10.0 7.6 - 12.9 [facility] LABORATORY NRBC% auto 0.0 % [facility] NRBC Absolute 0.000 0.000 - 0.000 x10(3)/mc L [facility] Blood specimen (specimen) 07/20/2019 8:18 AM EDT 07/20/2019 8:21 AM EDT Narrative Resulting Agency Comment Spec In Lab Bobby Marshall MD HEMATOLOGY ORDERABLE S [facility] [place] [address] documented in this encounter Visit Diagnoses Diagnosis Gastrointestinal hemorrhage, unspecified gastrointestinal hemorrhage type- Primary documented in this encounter Care Teams Dumper Mold Cleaner Relationship Specialty Start Date End Date Bobby Das MD [address] [place] [address] [place] [phone] PCP - General 10/02/10 documented as of this encounter
--- OUTSIDE RECORDS SUMMARY | 2024-09-30 17:05 | XMS_ITS | Encounter Summary ---
Author Organization [facility] [place] [address] Care Team Providers Care Dobie Man Name Role Phone Bobby Das MD Primary Care Provider [phone] Encounter Details Date Type Department Care Team (Latest Contact Info) Description 07/20/2019 8:15 AM EDT Laboratory Appointment Lab [address] [place] [address] Gastrointestinal hemorrhage, unspecified gastrointestinal hemorrhage type Social [...] [facility] NRBC% auto 0.0 % [facility] NRBC Absolute 0.000 0.000 - 0.000 x10(3)/[facility] LABORATORY Blood specimen (specimen) 07/20/2019 8:18 AM EDT 07/20/2019 8:21 AM EDT Narrative Resulting Agency Comment Spec In Lab Bobby Marshall MD HEMATOLOGY ORDERABLE S [facility] [place] [address] * Prothrombin Time (07/20/2019 8:18 AM EDT) [...] MD HEMATOLOGY ORDERABLE S Performing Organization Address City/State/[facility] Co de Phone Number [facility] [place] [address] documented in this encounter Visit Diagnoses Diagnosis Gastrointestinal hemorrhage, unspecified gastrointestinal hemorrhage type documented in this encounter Care Teams Dobie Man Relationship Specialty Start Date End Date Bobby Das MD [address] [place] [address] [place] [address] PCP - General 10/02/10 documented as of this encounter
--- OUTSIDE RECORDS SUMMARY | 2024-09-30 17:05 | XMS_ITS | Encounter Summary ---
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, sequela Closed compression fracture of L1 lumbar vertebra with delayed healing, subsequent encounter Malignant neoplasm of prostate Procedures IR Vertebroplasty Lumbar Multiple Levels IR Vertebral Augmentation Lumbar Single Level Zbigniew Thompson PA [facility] [place] [address] [place] [address] Referral ID Status Reason Start Date Expiration Date V isits Requested Visits Authorized [id number] Closed Specialty Service Requested 07/13/2019 07/12/2020 1 1 * Diagnostic Test (Routine) - Closed Specialty Diagnoses / Procedures Referred By Contac t Referred To Contact Radiology Diagnoses Closed compression fracture of L1 lumbar vertebra with delayed healing, subsequent encounter Malignant neoplasm of prostate Procedures IR Biopsy Spine Zbigniew Thompson PA [facility] [place] [address] [place] [address] Referral ID Status Reason Start Date Expiration Date V isits Requested Visits Authorized [id number] Closed Specialty Service Requested 07/13/2019 07/12/2020 1 [...] Augmentation Lumbar Single Level Zbigniew Thompson PA [facility] [place] [address] [place] [address] Referral ID Status Reason Start Date Expiration Date V isits Requested Visits Authorized [id number] Closed Specialty Service Requested 07/13/2019 07/12/2020 1 1 Encounter Details Date Type Department Care Team (Latest Contact Info) Description 07/20/2019 8:24 AM EDT - 07/20/2019 11:59 PM EDT Hospital [place] [phone] Elmer Loya MD [facility] [place] [address] Closed compression fracture of L1 lumbar vertebra [...] Martínez RN - 07/20/2019 10:06 AM EDT [facility] Discharge Instructions for Vertebroplasty Your [...] is during regular office hours, please call [phone]. If it is after regular office hours, or on weekends or holidays, please call [phone] and ask to speak to the Database Development Project Manager supervisory air intercept controller for Interventional Radiology. XXX You have received [...] : 1940 AGE: 78 y.o. Address: [address] [place] [phone] (home) Mobile: No relevant phone numbers on file. Referring Provider: Zbigniew Thompson REASON FOR VISIT: Order Questions Answers Where will study be performed? [facility] Radiology [120] Specify location Lumbar [...] was made and a 13ga introducer needle (shenzhoufu) was advanced through the right pedicle and [...] was made and a 13ga introducer needle (shenzhoufu) was advanced through the left pedicle and [...] contact the number below. ? Procedure Note Bobby Marshall MD - 07/20/2019 EXAMINATION: IR VERTEBROPLASTY LUMBAR MULTIPLE LEVELS, IR BIOPSY SPINE CLINICAL HISTORY: Request L1 vertebroplasty and biopsy. Hx of prostateCA. Discussed with Dr. Brink; Exam/Procedure requested: Request [id number] and biopsy. Hx of prostate CA. Discussed [...] at the skin and periosteum overlying the A0lqnlf. A small skin incision was made and a 13ga introducer needle (shenzhoufu)was advanced through the right pedicle and to [...] incision was made and a 13ga introducer needle(shenzhoufu) was advanced through the left pedicle and [...] was made and a 13ga introducer needle (shenzhoufu) was advanced through the right pedicle and [...] was made and a 13ga introducer needle (shenzhoufu) was advanced through the left pedicle and [...] contact the number below. ? Procedure Note Bobby Marshall MD - 07/20/2019 EXAMINATION: IR VERTEBROPLASTY LUMBAR MULTIPLE LEVELS, IR BIOPSY SPINE CLINICAL HISTORY: Request L1 vertebroplasty and biopsy. Hx of prostateCA. Discussed with Dr. Brink; Exam/Procedure requested: Request [id number] and biopsy. Hx of prostate CA. Discussed [...] at the skin and periosteum overlying the Y5hwskz. A small skin incision was made and a 13ga introducer needle (shenzhoufu)was advanced through the right pedicle and to [...] incision was made and a 13ga introducer needle(shenzhoufu) was advanced through the left pedicle and [...] contact the number below. Elmer Loya MD [facility] ORDERABLES * Surgical Pathology Report (07/20/2019 10:45 AM EDT) Final Diagnosis [id number] ? Location: [facility] The signing pathologist has (i) examined [...] Jl Reynolds Verified: ??07/22/2019 ?Pathologist Performed at: ??-[facility] [place] Dept. of Pathology, [place], [place] DISCUSSION Deeper levels into the biopsy [...] labeled A1. ??sns 07/22/2019 3:15 PM EDT [facility] BONE STRUCTURE / Unknown 07/20/2019 10:45 AM EDT 07/20/2019 10:45 AM EDT Elmer Loya MD PATHOLOGY/CYTOLOGY O RADHA Performing Organization Address City/[facility]/ZIP Co de Phone Number [facility] [place] [address] * Specimen to Pathology (07/20/2019 8:41 AM EDT) AP Specimen 07/20/2019 8:41 AM EDT 07/20/2019 8:41 AM EDT Narrative [facility] - 07/20/2019 8:41 AM EDT Specimen requisition ordered. ??Separate Pathology report to follow Elmer Loya MD PATHOLOGY/CYTOLOGY O RADHA Performing Organization Address City/[facility] Co de Phone Number [facility] [place] [address] documented in this encounter Visit Diagnoses Diagnosis [...] mg documented in this encounter Care Teams Manager Legal Relationship Specialty Start Date End Date Bobby Das MD [address] [place] [address] [place] [address] PCP - General 10/02/10 documented as of this encounter
--- OUTSIDE RECORDS SUMMARY | 2024-09-30 17:05 | XMS_ITS | Encounter Summary ---
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, sequela Closed compression fracture of L1 lumbar vertebra with delayed healing, subsequent encounter Malignant neoplasm of prostate Procedures IR Vertebroplasty Lumbar Multiple Levels IR Vertebral Augmentation Lumbar Single Level Zbigniew Thompson PA [facility] [place] [address] [place] [address] Referral ID Status Reason Start Date Expiration Date V isits Requested Visits Authorized [id number] Closed Specialty Service Requested 07/13/2019 07/12/2020 1 1 * Diagnostic Test (Routine) - Closed Specialty Diagnoses / Procedures Referred By Contac t Referred To Contact Radiology Diagnoses Closed compression fracture of L1 lumbar vertebra with delayed healing, subsequent encounter Malignant neoplasm of prostate Procedures IR Biopsy Spine Zbigniew Thompson PA [facility] [place] [address] [facility] [place] [address] Referral ID Status Reason Start Date Expiration Date V isits Requested Visits Authorized [id number] Closed Specialty Service Requested 07/13/2019 07/12/2020 1 1 Reason for Visit * Reason Comments Back Pain * Consultation (ANDREINA) - Closed Specialty Diagnoses / Procedures Referred By Contac t Referred To Contact Pain and Spine Center Diagnoses Collapsed vertebra, not elsewhere classified, lumbar region, subsequent encounter for fracture with routine healing Bobby Das MD [address] [place] [address] [place] [address] [facility] [place] [address] Referral ID Status Reason Start Date Expiration Date V isits Requested Visits Authorized [id number] Closed Consult, Test & Treat Connection Center 06/30/2019 06/29/2020 1 1 Encounter Details Date Type Department Care Team (Late st Contact Info) Description 07/13/2019 2:40 PM EDT Office Visit [place] [phone] Zbigniew Thompson PA [facility] [place] [address] Closed compression fracture of L1 lumbar vertebra [...] was made and a 13ga introducer needle (Comviva) was advanced through the right pedicle and [...] was made and a 13ga introducer needle (Comviva) was advanced through the left pedicle and [...] Discussed with Dr. Brink; Exam/Procedure requested: Request [id number] and biopsy. Hx of prostate CA. Discussed [...] at the skin and periosteum overlying the W9skina. A small skin incision was made and a 13ga introducer needle (Comviva)was advanced through the right pedicle and to [...] incision was made and a 13ga introducer needle(Comviva) was advanced through the left pedicle and [...] was made and a 13ga introducer needle (Comviva) was advanced through the right pedicle and [...] was made and a 13ga introducer needle (Comviva) was advanced through the left pedicle and [...] Discussed with Dr. Brink; Exam/Procedure requested: Request [id number] and biopsy. Hx of prostate CA. Discussed [...] at the skin and periosteum overlying the O3qjlqn. A small skin incision was made and a 13ga introducer needle (Comviva)was advanced through the right pedicle and to [...] incision was made and a 13ga introducer needle(Comviva) was advanced through the left pedicle and [...] sequela documented in this encounter Care Teams [employer] Relationship Specialty Start Date End Date Bobby Das MD [address] [place] [address] [place] [address] PCP - General 10/02/10 documented as of this encounter
--- OUTSIDE RECORDS SUMMARY | 2024-09-30 17:05 | XMS_ITS | Encounter Summary ---
[place] [address] Care Team Providers Care Computed Tomography Scanner Operator Name Role Phone Bobby Das MD Primary Care Provider [phone] Reason for Referral * Consultation (Routine) - Closed Specialty Diagnoses / Procedures Referred By Contac t Referred To Contact Neurology Diagnoses Low back pain, non-specific Status post vertebroplasty Transient left leg weakness EMG Arpita Whitney APRN [facility] [place] [address] [facility] Neurology [address] [place] [phone] Referral ID Status Reason Start Date Expiration Date V isits Requested Visits Authorized [id number] Closed Consult, Test & Treat 04/17/2021 04/17/2022 1 1 * Physical Therapy (Routine) - Specialty Diagnoses / Procedures Referred By Contac t Referred To Contact Diagnoses Low back pain, non-specific Status post vertebroplasty Arpita Whitney APRN [facility] [place] [address] Referral ID Status Reason Start Date Expiration Date V isits Requested Visits Authorized [id number] Evaluate and Treat 04/17/2021 10/14/2021 12 12 Reason for Visit * Reason Comments Back Pain new patient visit * Consultation (Routine) - Closed Specialty Diagnoses / Procedures Referred By Conthomar t Referred To Contact Pain and Spine Center Diagnoses Low back pain Pain - Low back pain/ MRI 02/20/21 & XR 01/31/21 @ [facility] Bobby Das MD [address] [place] [address] [place] [address] [facility] [place] [address] Referral ID Status Reason Start Date Expiration Date Visits Re quested Visits Authorized [id number] Closed 03/07/2021 03/07/2022 1 1 Encounter Details Date Type Department Care Team (Late st Contact Info) Description 04/17/2021 2:30 PM EDT Office Visit [place] [address] Arpita Whitney APRN [facility] [place] [address] Low back pain, non-specific; Status post vertebroplasty; [...] from the original note were not included. [facility] Date of [...] standing limited due to back pain [facility] Prescription Monitoring Program was checked. The number of prescriptions reported was 0. Current Medications: Outpatient Medications Marked as Taking for the 04/17/21 encounter (Office Visit) with Arpita Whitney APRN Medication Sig Dispense Refill ??? fluticasone propionate (FLONASE) 50 mcg/actuation [place], Suspension as needed. ??? fluorouraciL (EFUDEX) [...] MD [facility] INTERVENTIONL RAD Review of Systems: [...] y.o. year-old male who presents to the [facility] for [facility]ine clinic, previously seen [...] Mr. Koko Zamora's care. Arpita Whitney, MSN, LOCAL TANKER TRUCK DRIVER- C, PUBLIC WORKS DIRECTOR Nurse Practitioner [facility] [address] [address] / [facility] documented in this encounter Plan of [...] limbs documented in this encounter Care Teams Computed Tomography Scanner Operator Relationship Specialty Start Date End Date Bobby Das MD [address] [place] [address] [place] [address] PCP - General 10/02/10 documented as of this encounter
--- OUTSIDE RECORDS SUMMARY | 2024-09-30 17:05 | XMS_ITS | Encounter Summary ---
Author Organization [facility] [place] [address] Care Team Providers Care Straw Hat Brim Raiser Operator Name Role Phone Bobby Das MD Primary Care Provider [phone] Encounter Details Date Type Department Care Team (Late st Contact Info) Description 08/28/2020 Ancillary Procedure Radiology at [facility] [address] [place] [address] Amy Grimaldo MD [address] [place] [address] Social History Tobacco Use Types Packs/Day Years [...] Amy Grimaldo MD IMG FILM LIBRARY ORDERABLES [place], [place] documented in this encounter Visit Diagnoses Not on filedocumented in this encounter Care Teams Straw Hat Brim Raiser Operator Relationship Specialty Start Date End Date Bobby Das MD [address] [place] [address] [place] [address] PCP - General 10/02/10 documented as of this encounter
--- OUTSIDE RECORDS SUMMARY | 2024-09-30 17:05 | XMS_ITS | Encounter Summary ---
Author Organization [facility] [place] [address] Care Team Providers Care Resin Mixer Name Role Phone Bobby Das MD Primary Care Provider [phone] Encounter Details Date Type Department Care Team (Late st Contact Info) Description 02/27/2021 [place] [address] Matt Chisholm MD [facility] [place] [address] Social History Tobacco Use Types Packs/Day Years [...] filedocumented in this encounter Care Teams Resin Mixer Relationship Specialty Start Date End Date Bobby Das MD [address] [place] [address] [place] [address] PCP - General 10/02/10 documented as of this encounter
--- OUTSIDE RECORDS SUMMARY | 2024-09-30 17:05 | XMS_ITS | Encounter Summary ---
Author Organization [facility] [place] [address] Care Team Providers Care Marketing Operations Coordinator Name Role Phone Bobby Das MD Primary Care Provider [phone] Encounter Details Date Type Department Care Team (Late st Contact Info) Description 08/06/2020 12:05 AM EDT Ancillary Procedure Radiology at [facility] [address] [place] [phone] Amy Grimaldo MD [address] [place] [address] Social History Tobacco Use Types Packs/Day Years [...] Amy Grimaldo MD IMG FILM LIBRARY ORDERABLES [place], [place] documented in this encounter Visit Diagnoses Not on filedocumented in this encounter Care Teams Marketing Operations Coordinator Relationship Specialty Start Date End Date Bobby Das MD [address] [place] [address] [place] [address] PCP - General 10/02/10 documented as of this encounter
--- OUTSIDE RECORDS SUMMARY | 2024-09-30 17:05 | XMS_ITS | Encounter Summary ---
Author Organization [facility] Address [facility] [place] [address] Care Team Providers Care Cash Grain Grower Name Role Phone Bobby Das MD Primary Care Provider [phone] Reason for Visit * - Closed Specialty Diagnoses / Procedures Referred By Colby quezada Referred To Contact Procedures Film Library- Storage Only MR Spine Bobby Das MD [address] [place] [address] [place] [address] Referral ID Status Reason Start Date Expiration Date Visits Re quested Visits Authorized [id number] Closed 02/23/2021 02/23/2022 1 1 Encounter Details Date Type Department Care Team (Late st Contact Info) Description 03/16/2020 Ancillary Procedure Radiology Library at [place] [phone] Bobby Das MD [address] [place] [address] [place] [address] Social History Tobacco Use Types Packs/Day [...] MR Spine (03/16/2020 12:00 AM EDT) Narrative [facility] - 02/23/2021 12:56 PM EDT This exam is auto-finalizing. It's purpose is for storage only. Bobby Das MD G FILM LIBRARY ORD ERABLES [place], [place] documented in this encounter Visit Diagnoses Not on filedocumented in this encounter Care Teams Cash Grain Grower Relationship Specialty Start Date End Date Bobby Das MD [address] [place] [address] [place] [address] PCP - General 10/02/10 documented as of this encounter
--- OUTSIDE RECORDS SUMMARY | 2024-09-30 17:05 | XMS_ITS | Encounter Summary ---
Author Organization [facility] [place] [address] Care Team Providers Care Vice President Payment Name Role Phone Bobby Das MD Primary Care Provider [phone] Encounter Details Date Type Department Care Team (Late st Contact Info) Description 09/06/2020 Ancillary Procedure Radiology at [facility] [address] [place] [address] Amy Grimaldo MD [address] [place] [address] Social History Tobacco Use Types Packs/Day Years [...] Amy Grimaldo MD IMG FILM LIBRARY ORDERABLES [place], [place] documented in this encounter Visit Diagnoses Not on filedocumented in this encounter Care Teams Vice President Payment Relationship Specialty Start Date End Date Bobby Das MD [address] [place] [address] [place] [address] PCP - General 10/02/10 documented as of this encounter
--- OUTSIDE RECORDS SUMMARY | 2024-09-30 17:05 | XMS_ITS | Encounter Summary ---
Author Organization [facility] [place] [address] Care Team Providers Care System Trainer Name Role Phone Bobby Das MD Primary Care Provider [phone] Reason for Referral * Diagnostic Test (Routine) - Closed Specialty Diagnoses / Procedures Referred By Contac t Referred To Contact Radiology Diagnoses Compression fracture of T9 vertebra, initial encounter Procedures IR Vertebroplasty Thoracic Single Level Alphonso Esquivel, [facility] [place] [address] [place] [address] Referral ID Status Reason Start Date Expiration Date V isits Requested Visits Authorized [id number] Closed Specialty Service Requested 10/13/2020 04/13/2022 1 1 Encounter Details Date Type Department Care Team (Late st Contact Info) Description 10/13/2020 Orders [place] [address] Alphonso Esquivel [facility] [place] [address] Compression fracture of T9 vertebra, [...] was made and a 13ga introducer needle (BitComet) was advanced through the right pedicle and to the ??T9 vertebral body during an intermittent fluoroscopic guidance. The Osseo biopsy cannula was advanced through the introducer needle and the system was advanced further into the vertebral body. The core biopsy sample was removed and sent in formalin. 10 cc 1% lidocaine was used for local anesthesia of the left pedicle entry site at the skin and periosteum overlying the ??T9 level. A small skin incision was made and a 13ga introducer needle (BitComet) was advanced through the left pedicle and [...] interpretation and agree with the findings, Matt Valevrde at 10/25/2020 11:02 AM Thank you for letting us participate in the care of this patient. For questions regarding this report, please contact the number below. ? Electronically signed by: Matt Valverde [facility] ([phone]), at 10/25/2020 11:02 AM Procedure Note Matt [...] at the skin and periosteum overlying the M6omuju. A small skin incision was made and a 13ga introducer needle (BitComet)was advanced through the right pedicle and to the T9 vertebral body duringan intermittent fluoroscopic guidance. The BitComet biopsy cannula wasadvanced through the introducer needle and the system was advanced further intothe vertebral body. The core biopsy sample was removed and sent in formalin. 10 cc 1% lidocaine was used for local anesthesia of the left pedicle entrysite at the skin and periosteum overlying the T9 level. A small skin incisionwas made and a 13ga introducer needle (BitComet) was advanced through theleft pedicle and to [...] number below. Electronically signed by: Matt Valverde [facility]([phone]), at 10/25/2020 11:02 AM Alphonso Esquivel DO [facility] IR ORDERABLES * Prothrombin Time (10/25/2020 6:35 AM EST) Prothrombin Time 10.8 9.4 - 12.5 sec [facility] International Normalization Ratio 1.0 [facility] Comment: An INR [...] Lab Alphonso Esquivel DO HEMATOLOGY ORDERABLE S [facility] [place] [place] [address] * Platelet count (10/25/2020 6:35 AM EST) Platelet 192 145 - 357 x10(3)/mc L [facility] Immature Plt % 2.6 0.0 - 7.4 % [facility] Comment: Limitation of the Immature Platelet Fraction (IPF)-May be less reliable when the platelet count is less than 46r690/uL due to statistical imprecision. The IPF value [...] in a decreased state of production. References: [employer] The Clinical Value of the Immature Platelet Fraction (IPF) in Cell Recovery Document Number [id number] 04/2011 [employer] The Role of the Immature Platelet Fraction (IPF) in the Differential Diagnosis of Thrombocytopenia, Document [id number] V05 P003/23 Blood specimen (specimen) 10/25/2020 6:35 AM EST 10/25/2020 6:52 AM EST Narrative Resulting Agency Comment Spec In Lab Alphonso Esquivel DO HEMATOLOGY ORDERABLE S [facility] [place] [place] [address] documented in this encounter Visit Diagnoses Diagnosis Compression fracture of T9 vertebra, initial encounter Compression fracture of T9 vertebra, initial encounter documented in this encounter Care Teams System Trainer Relationship Specialty Start Date End Date Bobby Das MD [address] [place] [address] [place] [address] PCP - General 10/02/10 documented as of this encounter
--- OUTSIDE RECORDS SUMMARY | 2024-09-30 17:05 | XMS_ITS | Encounter Summary ---
Author Organization [facility] Address [facility] [place] [address] Care Team Providers Care Lap Grinder Name Role Phone Bobby Das MD Primary Care Provider [phone] Reason for Visit * - Closed Specialty Diagnoses / Procedures Referred By Colby quezada Referred To Contact Procedures Film Library- Storage Only MR Spine Bobby Das MD [address] [place] [address] [place] [address] Referral ID Status Reason Start Date Expiration Date Visits Re quested Visits Authorized [id number] Closed 02/23/2021 02/23/2022 1 1 Encounter Details Date Type Department Care Team (Late st Contact Info) Description 02/20/2021 Ancillary Procedure Radiology Library at [facility] [place] [address] Bobby Das MD [address] [place] [address] [place] [address] Social History Tobacco Use Types Packs/Day [...] Das MD IMG FILM LIBRARY ORD ERABLES [place], [place] documented in this encounter Visit Diagnoses Not on filedocumented in this encounter Care Teams Lap Grinder Relationship Specialty Start Date End Date Bobby Das MD [address] [place] [address] [place] [address] PCP - General 10/02/10 documented as of this encounter
--- OUTSIDE RECORDS SUMMARY | 2024-09-30 17:05 | XMS_ITS | Encounter Summary ---
Author Organization [facility] [place] [address] Care Team Providers Care Overlay Plastician Name Role Phone Bobby Das MD Primary Care Provider [phone] Encounter Details Date Type Department Care Team (Late st Contact Info) Description 09/22/2020 Telephone [facility] [place] [id number] Negra Butt RN Social History Tobacco Use [...] on filedocumented in this encounter Care Teams Overlay Plastician Relationship Specialty Start Date End Date Bobby Das MD [address] [place] [address] [place] [id number] PCP - General 10/02/10 documented as of this encounter
--- OUTSIDE RECORDS SUMMARY | 2024-09-30 17:05 | XMS_ITS | Encounter Summary ---
[place] [address] Care Team Providers Care Information Architect Name Role Phone Bobby Das MD Primary Care Provider [phone] Reason for Visit * Reason Comments Left Leg Pain * Auth/Cert Specialty Diagnoses / Procedures Referred By Colby t Referred To Contact Diagnoses Limb ischemia LLE thrombus Fito Summers MD [facility] [address] [facility] Referral ID Status Reason Start Date Expiration Date Visits Re quested Visits Authorized [id number] 1 1 Encounter Details Date Type Department Care Team (Late st Contact Info) Description 05/15/2022 12:41 PM EDT - 05/15/2022 4:08 PM EDT [place] [address] Fito Summers MD [facility] [place] [address] EMBOLECTOMY OR THROMBECTOMY, FEMOROPOPLITEAL, AORTOILIAC ARTERY BY [...] service with ALI and emergently went to [facility] for L BRAKE ADJUSTER transverse arteriotomy and primary repair, thromboembolectomy of L SFA/PFA/BRAKE ADJUSTER, reperfusion venous drainage for 250 cc, and [...] Discharge Condition: Good Discharge to: Home with [facility] [address] [address] Future Appointments and Orders Future Appointments and Orders Future Appointments Provider Department Dept Phone 05/23/2022 10:30 AM Loretta Cohen MD Dermatology at [address] Arrive at: Windows Infrastructure Engineer [address] [place] [address] 06/07/2022 1:30 PM Gail Rae APRN Vascular Surgery at [facility] Arrive at: Windows Infrastructure Engineer Area [phone] 06/13/2022 7:30 AM Edson Lagos [place] Vascular Lab at [facility] Arrive at: Windows Infrastructure Engineer Area [phone] 06/13/2022 8:00 AM Fito Summers MD Vascular Surgery at [facility] Arrive at: Windows Infrastructure Engineer Area [phone] 06/13/2022 10:00 AM Alan Reid MD Cardiology at [facility] Arrive at: Windows Infrastructure Engineer Area [phone] Future Orders Complete By Expires Ziopatch 48 Hrs-15 Days [AFI0282 CPT(R)] 05/21/2022 11/20/2022 Process Instructions: Scheduling Instructions: Comments: Questions: Does the patient have a pacemaker? If yes provide HI/LO settings: Apply for 7 or 14 days?: 7 Where will study be performed?: [facility] Clinics JOSSELYN, legs, multiple levels [VAS8 Custom] 06/21/2022 (Approximate) 12/21/2022 Process Instructions: There is no in-house vascular ear mold laboratory technician available on weeknights (5pm-8am), weekends, or holidays. IF THIS IS A REQUEST FOR AN EMERGENT STUDY DURING THOSE HOURS, please have the senior provider responsible for the patient page the Vascular Surgery Fellow/Senior Resident personal caregiver to discuss options. Scheduling Instructions: Questions: Indication for study/signs & symptoms: ALI s/p L fem cutdown with thromboembolectomy Question to be answered: Perfusion to feet? Please check toe pressure Preferred location?: [facility] Clinics Referral to Cardiology [REF12 Custom] As [...] Koko Youguson for admission to Home Health. [address] [place] [phone] (home) Date of : 1940 Inpatient DOCUMENTATION FOR VNA SERVICES (INCLUDING THOSE PATIENTS WITH MEDICARE COVERAGE REQUIRING HOME VNA SERVICES AND/OR HOSPICE SERVICES) PATIENT'S LOCATION: Koko Bah [address] [facility] [phone] (home) Cell: No relevant phone numbers on file. Coat Agent's Name: Koko In discussion with the attending physician, it is certified that this patient is under their care and that they, or a Nurse Practitioner,Clinical Nurse specialist or Physician Engine Lathe Set Up Operator who is working directly with them, [...] for managing ADL's. HOME HEALTH CARE AGENCY: [facility]. [address] [place] [id number] Start of care: Within 24 to 48 [...] from this patient's PCP: Bobby Das MD [address] [place] [address] / [place] [address] All VNA agencies which cover the area [...] For any problems or questions please call [phone] For issues on weeknights after 5pm and weekends please call [phone] and ask for the Vascular Fellow personal caregiver. JOSEE Santiago Vascular Surgery 05/21/2022 documented in [...] For any problems or questions please call [phone] For issues on weeknights after 5pm and weekends please call [phone] and ask for the Vascular Fellow personal caregiver. documented in this encounter Medications at Time of Discharge Medication Sig Dispensed Refills Start Date End Date fluticasone propionate (FLONASE) 50 mcg/actuation [place], Suspension 1 spray by Each Nare route [...] status, full code. JOSEE Santiago 05/21/2022 Pager: [phone] * Brannon Isaacs - 05/21/2022 10:35 AM [...] plan as stated. Time IN / OUT: 4137-6942 Total Minutes, Physical Therapy: 25 Billing Code: 2 BOSTON Isaacs DPT Pager: [phone] Physical Therapy Inpatient Rehabilitation Department * [place] [...] 04/17/2021 in Pain and Spine Center at [facility] Weight 79.8 kg (175 lb 14.8 oz) [...] and plan of care per Dr. Mcnamara (service tech/welder). 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 [...] ED to Hosp-Admission (Current) from 05/15/[address] [place] [address] Office Visit from 04/17/2021 in Pain and Spine Center at [facility] Weight 79.8 kg (175 lb 14.8 oz) [...] and plan of care per Dr. Mcnamara (service tech/welder). Please refer to her note above for [...] a mitral repair in 2000 (not at [facility])with no CAD at that time. Currently, an [...] AF and the first documented HR at [facility] was 125 bpm (presented to an an [...] management following Dottie Hill APRN 05/20/2022 Pager: [phone] * Laney Atkins RN - 05/20/2022 1:14 [...] off to [facility] RN * Dottie Hill APRN [...] management following Dottie Hill APRN 05/19/2022 Pager: [phone] * Emily Sauceda RN - 05/19/2022 6:28 AM EDT OUTCOME EVALUATION NOTE: OUTCOME SUMMARY: Patient AOx4, VSS on RA. Afib on tele. HR controlled w/ PRN metop, given x2. Denies CP, SOB, n/v. See flowsheets for NVC. Dressings to LLE CDI, prevena WV to groin intact. Voiding to urinal. 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 LBM BANK VAULT ATTENDANT.Up to chair this AM with nursing staff. Worked with PT, tolerated well. Diet changed to regular at 1800. Plan is for cardiac cath on Friday. 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 PHENobarbitaL 0.12 mg/kg/dose ([place]) Oral BID ??? thiamine 100 mg Oral [...] management following Dottie Hill APRN 05/18/2022 Pager: [phone] * Brannon Isaacs - 05/18/2022 10:00 AM [...] IR Biopsy Spine 07/20/2019 Bobby Marshall MD [facility] INTERVENTIONL RAD ??? IR VERTEBROPLASTY LUMBAR MULTIPLE LEVELS 07/20/2019 IR Vertebroplasty Lumbar Multiple Levels 07/20/2019 Bobby Marshall MD [facility] INTERVENTIONL RAD ??? IR VERTEBROPLASTY THORACIC SINGLE LEVEL 10/25/2020 IR Vertebroplasty Thoracic Single Level 10/25/2020 Matt Chisholm MD [facility] INTERVENTIONL RAD ??? PRO EMBLC/THRMBC FEMORAL POPLITEAL AORTO-ILIAC ARTERY Left 05/15/2022 EMBOLECTOMY OR THROMBECTOMY, FEMOROPOPLITEAL, AORTOILIAC ARTERY BY LEG INCISION (WRVU 19.48) performed by Fito Summers MD at [facility] MAIN OR Social History: Pt lives [...] outlinedin this evaluation. Time IN / OUT: 0020-6352 Total Minutes, Physical Therapy: 30 Billing Code: Basilio Brannon Isaacs, PT Pager: [phone] Physical Therapy Inpatient Rehabilitation Department * Emily Sauceda RN - 05/18/2022 4:34 AM EDT OUTCOME EVALUATION NOTE: OUTCOME SUMMARY: Patient AOx4, VSS on 2LNC. Afib on tele. HR above 120, MD aware, PRN IV metop given x1, HR returnedto 90's-low 100's. Denies CP, SOB, n/v. See flowsheets for NVC. Dressings to LLE CDI, prevena WV togroin intact. Voiding to urinal. 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 Heparin gtt therapeutic. Pain controlled. Patient sleeping [...] adequately without difficulty to bedside urinal. 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 Patient not OOB this shift. 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 PLAN MOVING FORWARD: Bleeding precautions Pain management neurovascular checks PT/OT NPO for laborer pullet farm INDIVIDUALIZED FALL PREVENTION INTERVENTIONS: Patient-specific fall [...] lower extremity limb ischemia. He went to [facility] and was started on heparin and transferred to [facility] for evaluation by vascular surgery with [...] will will be going to the laborer pullet farm for evaluation. Will defer PT eval at present but will see as ordered post cardiac catheritizaton. Social Hx:Pt lives with his Ursula in [place], [place] in a 2 level home in [...] WBAT LLE LISBET MORELOS PT Pager # [phone] In-Pt Rehab Medicine * Dottie Hill APRN [...] mL Intravenous BID ??? PHENobarbitaL 0.24 mg/kg/dose ([place]) Oral BID Followed by ??? [START ON 05/18/2022] PHENobarbitaL 0.12 mg/kg/dose ([place]) Oral BID ??? thiamine 100 mg Oral [...] management following Dottie Hill APRN 05/17/2022 Pager: [phone] * Sary Dos Santos RN - 05/17/2022 [...] mL Intravenous BID ??? PHENobarbitaL 0.48 mg/kg/dose ([place]) Oral BID Followed by ??? [START ON 05/17/2022] PHENobarbitaL 0.24 mg/kg/dose ([place]) Oral BID Followed by ??? [START ON 05/18/2022] PHENobarbitaL 0.12 mg/kg/dose ([place]) Oral BID ??? thiamine 100 mg Oral [...] management following Edward Rodríguez MD 05/16/2022 Pager: [phone] * Sary Dos Santos RN - 05/16/2022 [...] met 2129 Hand off to DION [facility] documented in this encounter H&P [...] starting at 630 this morning he presented [facility] where he was [...] IR Biopsy Spine 07/20/2019 Bobby Marshall MD [facility] INTERVENTION[facility] RAD ??? IR VERTEBROPLASTY LUMBAR MULTIPLE LEVELS 07/20/2019 IR Vertebroplasty Lumbar Multiple Levels 07/20/2019 Bobby Marshall MD [facility] INTERVENTION[facility] RAD ??? IR VERTEBROPLASTY THORACIC SINGLE LEVEL 10/25/2020 IR Vertebroplasty Thoracic Single Level 10/25/2020 Matt Chisholm MD [facility] INTERVENTION[facility] RAD Social Hx: Social History [...] Refill ??? fluticasone propionate (FLONASE) 50 mcg/actuation [place], Suspension as needed. ??? fluorouraciL (EFUDEX) 5 [...] and consented. Tim Chicas MD 05/15/2022 Pager: [phone] documented in this encounter ED Notes * Lc Harris PA - 05/15/2022 1:20 PM EDT ED Provider Note HPI: Koko Bah is a 81 y.o. male with history of atrial fibrillation not on anticoagulation, andGI bleeding who presents to the Emergency Department as a transfer from [facility] with left lower extremity limb ischemia. Patient says that the symptoms started roughly 630 this morning when he developed severe pain in his left lower extremity. He went to [facility] and was started on heparin and transferred to [facility] for evaluation by vascular surgery. Review [...] lower extremity earlier today and went to [facility] where it was determined that he had ischemia of the left lower extremity. Vascular surgery [facility] was contacted and he was transferred here [...] orders before pt. Arrival. Pt. Arrived at [facility] by EMS at 1150, vascular team at [...] [facility] for future reference. * [...] Contact information for follow-up Home Health & Hospice[address] [facility] [address] Transportation: family or friend will provide Functional [...] Type: *No Product type* / Secondary Insurance: [employer] Prescription Coverage: Yes This plan was formulated with input from patient and team. All are in agreement with plan. GEOFFREY RS has communicated with Oli - for initial IMM. Shawn (Paulo López RN RN/CM - Cellphone: [phone] Pager: [phone] Covering Service RN/CM * Plan of Care [...] Type: *No Product type* / Secondary Insurance: [facility] Last Physical Therapy Recommendation: home with home health, home with supervision with None Last Occupational Therapy Recommendation: with Plan for discharge is: Home w/ Services Outpatient Agency/Support Group Needs: None Home Health Services: Registered Nurse, Physical Therapy, Occupational Therapy Agency Referrals: I have met with the patient to: ?? discuss discharge planning needs. ?? provide the [facility], Office of Care Management letter from the Insole Rounder pertaining to rehabreferrals. ?? provide a letter describing our affiliations within the [facility] and educate about their right to choose where referrals are sent. ?? provide a list of Home Health Agencies / Durable Medical Equipment vendors which serve their preferred geographic area. ?? provided patient with [facility] Star Quality Rating handout. They have requested referrals to: [facility] [address] [place] [id number] Note routed to a Crinkling Machine Operator who will communicate referrals to facilities and provide any required information. Transportation: family or friend will provide Barriers to discharge: None Plan going forward: Patient is going for a cardiac cath today and plan will come from there. Patient was recently seen by PT and they recommend VNA at time of discharge. [facility] was routed and pended at this time. Care Management will continue to follow and assist with discharge planning and coordination of care as indicated. Anticipated Date of Discharge: 05/21/2022 Nataly RICHMOND RN Phone: [phone] Pager: [phone] * Plan of Care - Laney Atkins [...] not included. [facility] [place] [address] INPATIENT CARDIOLOGY CONSULT NOTE Date of Consultation: 05/17/2022 Admit Date: 05/15/2022 Hospital Day 2 days Reason for Consult: New afib Active Problems: Active Hospital Problems Diagnosis Limb ischemia Resolved Hospital Problems No resolved problems to display. HPI: Koko Bah is a 81 y.o. male with a PMHx significant for MVP (s/p MV repair 2000), tobacco use, HLD, who presented to [facility] from OSH on 05/15 with acute limb ischemia of LLE and was found to bein atrial fibrillation. Patient had sudden onset LLE pain on 05/15 and presented to [facility], where he was started on heparin and transferred to [facility]. Upon arrival to [facility], patient was in atrial fib with RVR [...] IR Biopsy Spine 07/20/2019 Bobby Marshall MD [facility] INTERVENTION[facility] RAD IR VERTEBROPLASTY LUMBAR MULTIPLE LEVELS 07/20/2019 IR Vertebroplasty Lumbar Multiple Levels 07/20/2019 Bobby Marshall MD [facility] INTERVENTION[facility] RAD IR VERTEBROPLASTY THORACIC SINGLE LEVEL 10/25/2020 IR Vertebroplasty Thoracic Single Level 10/25/2020 Matt Chisholm MD [facility] INTERVENTIONL RAD PRO EMBLC/THRMBC FEMORAL POPLITEAL AORTO-ILIAC ARTERY Left 05/15/2022 EMBOLECTOMY OR THROMBECTOMY, FEMOROPOPLITEAL, AORTOILIAC ARTERY BY LEG INCISION (WRVU 19.48) performed by Fito Summers MD at [facility] MAIN OR Allergies Allergen Reactions Aspirin Other (See Comments) GI bleed Out-Patient Medications: Medications Prior to Admission Medication Sig Dispense Refill Last Dose fluorouraciL (EFUDEX) 5 % Cream daily. CRESTOR 40 mg Tablet Take 40 mg by mouth daily. fluticasone propionate (FLONASE) 50 mcg/actuation [place], Suspension as needed. ascorbic acid, vitamin C, [...] 5 mL Intravenous BID PHENobarbitaL 0.24 mg/kg/dose ([place]) Oral BID Followed by [START ON 05/18/2022] PHENobarbitaL 0.12 mg/kg/dose ([place]) Oral BID thiamine 100 mg Oral Daily [...] to Hosp-Admission (Current) from 05/15/2022 in 3 [facility] Office Visit from 04/17/2021 in Pain and Spine Center at [facility] Weight 79.8 kg (175 lb 14.8 oz) [...] continue to follow Anne-Marie Larson MD Pager [phone] Clinic: [phone] 05/17/22 6:22 PM * Initial Assessments - [...] 180 days) Any patient receiving care at [facility] must abide by [place] law. The hierarchy [...] The agent with financial power of assistant prosecuting attorney or a conservator appointed in [...] toilet seat Home Address confirmed as: [address] [place] [phone] Social & Family Supports: All names listed below confirmed with patient as Incorrect. Will notify oli to correct. Wifes address is same as and phone is [phone]. Extended Emergency Contact Information Primary Emergency Contact: Ursula Bah Address: [address] [place] [address] [facility] Relation: Spouse [...] Type: *No Product type* / Secondary Insurance: [facility] Prescription Coverage: Yes Preferred Pharmacy: [id number] - [place], [place] - [address] [facility] [address] [facility] [address] [id number] - [place], [place] - [address] [facility] [address] [place] [address] Status: Patient is a : unable to assess Primary Care Provider: Bobby Das MD [phone] Patient/Caregiver Goals of Treatment: to walk again Potential Needs for Transition of Care: none noted per 05/16 IDR Transportation: family will provide Transportation Anticipated: family or friend will provide Concerns to be Addressed: no discharge needs identified Assessment: Patient is admitted to vascular surg service for left lower extremity limb ischemia Plan: Per PT OT recommendations . Has used [facility] in the past. A member of the Care Management team will continue to monitor progress, follow for continuity of care and assist with transition of care planning. Ifrah Bell RN BSN Single Spindle Screw Machine OperatorTableau Administrator of Care Management Pager [phone] * Brief Op Note - Erin Garza MD - 05/15/2022 5:04 PM EDT Brief Operative Note Patient Name: Koko Bah : [id number] MR#: [id number] Case Date: 05/15/2022 Surgeon: Surgeon(s) and Role: [...] Garza MD - 05/15/2022 2:08 PM EDT [facility] Operative Note Patient Name: Koko Bah : [id number] MR#: [id number] Case Date: 05/15/2022 Surgeon: Surgeon(s) and Role: [...] PM EDT Emblc/Thrmbc Femoral Popliteal Aorto-Iliac Artery (16187) 05/15/2022 1:20 PM EDT Acute Limb Ischemia [...] Text Report Department: Vascular Surgery Lab Patient: [id number] (KOKO BAH) CPT: 44840 Referring Physician: FITO SUMMERS ?? Phone: Indications: s/p L BRAKE ADJUSTER endart. Diabetes mellitus: no Findings: Right ?Pressure [...] 12:35 PM EDT) UF Heparin 0.42 IU/mL [facility] Comment: Heparin (anti-Xa) levels should [...] Lab Fito Summers MD HEMATOLOGY ORDERABLE S [facility] [place] [address] * Differential, Automated (05/21/2022 6:15 AM EDT) Neutrophil % 58.8 % [facility] Neutrophil Absolute 3.97 1.70 - 6.10 x10(3)/[facility] Lymph % 25.2 % [facility] Lymphocytes Abs 1.7 0.9 - 3.2 x10(3)/[facility] Monocyte % 12.9 % [facility] Monocyte Abs 0.9 0.3 - 0.9 x10(3)/[facility] Eos % 2.1 % [facility] Eosinophils Abs 0.1 0.0 - 0.4 x10(3)/[facility] Basophil % 0.4 % [facility] Baso Absolute 0.0 0.0 - 0.1 x10(3)/[facility] Immature Gran % 0.60 % [facility] Comment: Immature granulocytes(IG's)percentage and absolute count will include metamyelocytes, myelocytes, and promyelocytes. Blood smears from CBCs yielding IG's will be scanned manually for concordance. If this scan disagrees with the automated IG or if promyelocytes are noted, a manual differential will be performed. Immature Gran Absolute 0.04 0.00 - 0.04 x10(3)/[facility] Blood 05/21/2022 6:15 AM EDT 05/21/2022 6:38 AM EDT Narrative Resulting Agency Comment Spec In Lab Edward Rodríguez MD HEMATOLOGY ORDER NICK [facility] [place] [address] * (ABNORMAL) Hemogram (05/21/2022 6:15 AM EDT) White Blood Cell 6.8 4.0 - 9.5 x10(3)/mc L [facility] Red Blood Cell 3.59(L) 4.58 - 5.54 x10(6)/mc L [facility] Hemoglobin 11.8(L) 13.7 - 16.5 g/dL [facility] Hematocrit 34.5(L) 40.5 - 48.5 % [facility] Mean Cell Volume 96.1(H) 82.9 - 93.1 fL [facility] Mean Cell Hemoglobin 32.9(H) 27.5 - 32.1 pg [facility] Mean Cell Hemoglobin Concentration 34.2 32.0 - 35.7 g/dL [facility] Platelet 198 145 - 357 x10(3)/mc L [facility] RDW Standard Deviation 44.9 36.0 - 45.0 [facility] RDW coefficient of variation 12.6 11.4 - 13.8 % [facility] Mean Platelet Volume 10.0 7.6 - 12.9 [facility] NRBC% auto 0.3 % [facility] NRBC Absolute 0.020(H) 0.000 - 0.000 x10(3)/mc L [facility] Blood 05/21/2022 6:15 AM EDT 05/21/2022 6:38 AM EDT Narrative Resulting Agency Comment Spec In Lab Edward Rodríguez MD HEMATOLOGY ORDER NICK [facility] [place] [address] * EKG 12 Lead (05/20/2022 7:04 PM EDT) Ventricular rate 101 BPM MUSE SYSTEM QRS Duration 116 ms MUSE SYSTEM Q-T Interval 378 ms MUSE SYSTEM QTC Calculated (Bezet) 490 ms MUSE SYSTEM Calculated R [place] -53 degrees MUSE SYSTEM Calculated T [place] 101 degrees MUSE SYSTEM INTERPRETATION Atrial fibrillation [...] Modality Other Narrative 05/20/2022 7:09 PM EDT ?[facility] ? Cardiac Catheterization/Intervention Report ? Patient Name: SeraKoko ? Procedure Date: 05/20/2022 ? A #: [id number] ? Primary Physician: Malathi, Abundio S ? Case #: [id number] ? File Name: [id number] ? Catheterization Order Number: [id number] ? [facility] ? Final Report [place], [place] ? Patient Name: ? Koko J. Bah ? ID#: ?[id number] ? : ?1940 ? Procedure Date: ? [...] was Urgent. The indication for ?the laborer pullet farm visit is cardiomyopathy. Chest pain symptom assessment [...] ?3.5 guiding catheter and a 3.5 Fr [place] [employer] [place] [address] ??20 Mhz. ??Imaging ?was successful. ??Image [...] ? A premounted 2.75 x 30 mm Mora Olympia (AMPARO) was deployed ? with a maximum [...] may require ?modification of this regimen. Consult [facility] Interventional Cardiology for ?questions. ?The 1 year [...] Procedure Note Abundio Servin MD - 07/12/2022 [facility] Cardiac Catheterization/Intervention Report Patient Name: Koko Bah Procedure Date: 05/20/2022 A #: [id number] Primary Physician: Abundio Servin Case #: File Name: [id number] Catheterization Order Number: [id number] [facility] FinalReport [place], [place] Patient Name: Koko Bah ID#:[id number] :1940 Procedure Date: May 20, 2022 Case [...] diagnostic procedure was Urgent. The indicationfor the laborer pullet farm visit is cardiomyopathy. Chest pain symptom assessmentwas: [...] 3.5 guiding catheter and a 3.5 Fr [place] [employer] [place] [address] 20 Mhz.Imaging was successful. Image quality [...] The lesion was predilated with a 2.00mm [id number] MM balloon with a maximum inflation pressure of 12atmospheres. A premounted 2.75 x 30 mm Rudy Olympia (AMPARO) wasdeployed with a maximum inflation pressure [...] situation mayrequire modification of this regimen. Consult [facility] Interventional Cardiologyfor questions. The 1 year bleeding [...] * POCT Glucose (05/20/2022 5:42 PM EDT) [facility] Glucose, POC 123 65 - 199 mg/dL [facility] Comment: Supplemental ranges: <140 mg/dL before meals <180 mg/dL all other times of the day Blood 05/20/2022 5:42 PM EDT 05/20/2022 5:42 PM EDT Fito Summers MD POINT OF CARE TEST O RDERABLES [facility] [place] [address] * (ABNORMAL) BMP w/fasting Glucose (05/20/2022 10:50 AM EDT) Glucose Fasting 152(H) 65 - 99 mg/dL [facility] Comment: ?Fasting* Glucose Interpretive Criteria Normal [...] Position Statement from the [employer]. ??Diabetes Care, Volume 33, Supplement 1, Nov 2009 Blood Urea Nitrogen 11 10 - 20 mg/dL [facility] Creatinine 0.63(L) 0.80 - 1.50 mg/dL [facility] questions. Chloride 103 98 - 107 mmol/L [facility] Carbon Dioxide 24 22 - 31 mmol/L [facility] Anion Gap 10 5 - 15 mmol/L [facility] Calcium 8.7 8.5 - 10.5 mg/dL [facility] Est Glomerular Filtration Rate 97 >=60 mL/min/1. 73 m?? [facility] Comment: [...] Summers MD CHEMISTRY ORDERABLES Performing Organization Address [facility] Co de Phone Number [facility] [place] [address] * Heparin (unfractionated) Level (05/20/2022 5:02 AM EDT) UF Heparin 0.57 IU/mL [facility] Comment: Heparin (anti-Xa) levels should [...] MD HEMATOLOGY ORDERABLE S Performing Organization Address City/[facility]/ZIP Co de Phone Number [facility] [place] [address] * (ABNORMAL) Differential, Automated (05/20/2022 5:02 AM EDT) Neutrophil % 58.1 % [facility] Neutrophil Absolute 4.52 1.70 - 6.10 x10(3)/ L [facility] Lymph % 24.1 % [facility] Lymphocytes Abs 1.9 0.9 - 3.2 x10(3)/ L [facility] Monocyte % 13.8 % [facility] Monocyte Abs 1.1(H) 0.3 - 0.9 x10(3)/ L [facility] Eos % 2.6 % [facility] Eosinophils Abs 0.2 0.0 - 0.4 x10(3)/[facility] Basophil % 0.8 % [facility] Baso Absolute 0.1 0.0 - 0.1 x10(3)/ L [facility] Immature Gran % 0.60 % [facility] Comment: Immature granulocytes(IG's)percentage and absolute count will include metamyelocytes, myelocytes, and promyelocytes. Blood smears from CBCs yielding IG's will be scanned manually for concordance. If this scan disagrees with the automated IG or if promyelocytes are noted, a manual differential will be performed. Immature Gran Absolute 0.05(H) 0.00 - 0.04 x10(3)/ L [facility] Blood 05/20/2022 5:02 AM EDT 05/20/2022 5:19 AM EDT Narrative Resulting Agency Comment Spec In Lab Edward Rodríguez MD HEMATOLOGY ORDER NICK [facility] [place] [address] * (ABNORMAL) Hemogram (05/20/2022 5:02 AM EDT) [facility] White Blood Cell 7.8 4.0 - 9.5 x10(3)/ L [facility] Red Blood Cell 3.53(L) 4.58 - 5.54 x10(6)/mc L [facility] Hemoglobin 11.4(L) 13.7 - 16.5 g/dL [facility] Hematocrit 34.3(L) 40.5 - 48.5 % [facility] Mean Cell Volume 97.2(H) 82.9 - 93.1 fL [facility] Mean Cell Hemoglobin 32.3(H) 27.5 - 32.1 pg [facility] Mean Cell Hemoglobin Concentration 33.2 32.0 - 35.7 g/dL [facility] Platelet 181 145 - 357 x10(3)/[facility] RDW Standard Deviation 46.4(H) 36.0 - 45.0 [facility] RDW coefficient of variation 13.0 11.4 - 13.8 % [facility] Mean Platelet Volume 10.4 7.6 - 12.9 fL [facility] NRBC% auto 0.0 % [facility] NRBC Absolute 0.000 0.000 - 0.000 x10(3)/[facility] Blood 05/20/2022 5:02 AM EDT 05/20/2022 5:19 AM EDT Narrative Resulting Agency Comment Spec In Lab Edward Rodríguez MD HEMATOLOGY ORDER NICK [facility] [place] [address] * Heparin (unfractionated) Level (05/19/2022 3:26 AM EDT) [facility] UF Heparin 0.59 IU/mL [facility] Comment: Heparin (anti-Xa) levels should [...] Lab Fito Summers MD HEMATOLOGY ORDERABLE S [facility] [place] [address] * (ABNORMAL) Differential, Automated (05/19/2022 3:26 AM EDT) Neutrophil % 62.1 % [facility] Neutrophil Absolute 4.59 1.70 - 6.10 x10(3)/mc L [facility] Lymph % 22.1 % [facility] Lymphocytes Abs 1.6 0.9 - 3.2 x10(3)/mc L [facility] Monocyte % 13.5 % [facility] Monocyte Abs 1.0(H) 0.3 - 0.9 x10(3)/mc L [facility] Eos % 1.3 % [facility] Eosinophils Abs 0.1 0.0 - 0.4 x10(3)/mc L [facility] Basophil % 0.5 % [facility] Baso Absolute 0.0 0.0 - 0.1 x10(3)/mc L [facility] Immature Gran % 0.50 % [facility] Comment: Immature granulocytes(IG's)percentage and absolute count will include metamyelocytes, myelocytes, and promyelocytes. Blood smears from CBCs yielding IG's will be scanned manually for concordance. If this scan disagrees with the automated IG or if promyelocytes are noted, a manual differential will be performed. Immature Gran Absolute 0.04 0.00 - 0.04 x10(3)/mc L [facility] Blood 05/19/2022 3:26 AM EDT 05/19/2022 3:59 AM EDT Narrative Resulting Agency Comment Spec In Lab Edward Rodríguez MD HEMATOLOGY ORDER NICK [facility] [place] [address] * (ABNORMAL) Hemogram (05/19/2022 3:26 AM EDT) White Blood Cell 7.4 4.0 - 9.5 x10(3)/ L [facility] Red Blood Cell 3.74(L) 4.58 - 5.54 x10(6)/mc L [facility] Hemoglobin 12.1(L) 13.7 - 16.5 g/dL [facility] Hematocrit 36.4(L) 40.5 - 48.5 % [facility] Mean Cell Volume 97.3(H) 82.9 - 93.1 fL [facility] Mean Cell Hemoglobin 32.4(H) 27.5 - 32.1 pg [facility] Mean Cell Hemoglobin Concentration 33.2 32.0 - 35.7 g/dL [facility] Platelet 168 145 - 357 x10(3)/mc L [facility] RDW Standard Deviation 46.9(H) 36.0 - 45.0 fL [facility] RDW coefficient of variation 13.0 11.4 - 13.8 % [facility] Mean Platelet Volume 10.5 7.6 - 12.9 fL [facility] NRBC% auto 0.0 % [facility] NRBC Absolute 0.000 0.000 - 0.000 x10(3)/mc L [facility] Blood 05/19/2022 3:26 AM EDT 05/19/2022 3:59 AM EDT Narrative Resulting Agency Comment Spec In Lab Edward Rodríguez MD HEMATOLOGY ORDER NICK Performing Organization Address [facility] Co de Phone Number [facility] [address] * TSH (05/18/2022 8:00 PM EDT) Pathologist [facility] Thyroid Stimulating Hormone 2.27 0.27 - 4.20 mcIU/mL [facility] Comment: Reference Interval (mcIU/mL): Females: ??First Trimester: 0.23-3.88 ??Second Trimester: 0.22-3.90 ??Third Trimester: 0.44-4.66 Blood 05/18/2022 8:00 PM EDT 05/18/2022 8:06 PM EDT Narrative Resulting Agency Comment Spec In Lab Fito Summers MD CHEMISTRY ORDERABLES Performing Organization Address [facility] de Phone Number [facility] [place] [address] * (ABNORMAL) Differential, Automated (05/18/2022 3:34 AM EDT) Neutrophil % 67.2 % [facility] Neutrophil Absolute 5.89 1.70 - 6.10 x10(3)/mc L [facility] Lymph % 17.1 % [facility] Lymphocytes Abs 1.5 0.9 - 3.2 x10(3)/mc L [facility] Monocyte % 13.6 % [facility] Monocyte Abs 1.2(H) 0.3 - 0.9 x10(3)/mc L [facility] Eos % 1.0 % [facility] Eosinophils Abs 0.1 0.0 - 0.4 x10(3)/[facility] Basophil % 0.6 % [facility] Baso Absolute 0.0 0.0 - 0.1 x10(3)/[facility] Immature Gran % 0.50 % [facility] Comment: Immature granulocytes(IG's)percentage and absolute count will include metamyelocytes, myelocytes, and promyelocytes. Blood smears from CBCs yielding IG's will be scanned manually for concordance. If this scan disagrees with the automated IG or if promyelocytes are noted, a manual differential will be performed. Immature Gran Absolute 0.04 0.00 - 0.04 x10(3)/[facility] Blood 05/18/2022 3:34 AM EDT 05/18/2022 3:48 AM EDT Narrative Resulting Agency Comment Spec In Lab Edward Rodríguez MD HEMATOLOGY ORDER NICK Performing Organization Address City/State/[facility] Co de Phone Number [facility] [place] [address] * (ABNORMAL) Hemogram (05/18/2022 3:34 AM EDT) White Blood Cell 8.8 4.0 - 9.5 x10(3)/[facility] Red Blood Cell 3.45(L) 4.58 - 5.54 x10(6)/[facility] Hemoglobin 11.2(L) 13.7 - 16.5 g/dL [facility] Hematocrit 33.0(L) 40.5 - 48.5 % [facility] Mean Cell Volume 95.7(H) 82.9 - 93.1 fL [facility] Mean Cell Hemoglobin 32.5(H) 27.5 - 32.1 pg [facility] Mean Cell Hemoglobin Concentration 33.9 32.0 - 35.7 g/dL [facility] Platelet 130(L) 145 - 357 x10(3)/[facility] RDW Standard Deviation 46.2(H) 36.0 - 45.0 fL [facility] RDW coefficient of variation 13.2 11.4 - 13.8 % [facility] Mean Platelet Volume 10.8 7.6 - 12.9 fL [facility] NRBC% auto 0.0 % [facility] NRBC Absolute 0.000 0.000 - 0.000 x10(3)/mc L [facility] Blood 05/18/2022 3:34 AM EDT 05/18/2022 3:48 AM EDT Narrative Resulting Agency Comment Spec In Lab Edward Rodríguez MD HEMATOLOGY ORDER NICK Performing Organization Address [facility] [place] [address] * Heparin (unfractionated) Level (05/18/2022 3:34 AM EDT) UF Heparin 0.59 IU/mL [facility] Comment: Heparin (anti-Xa) levels should [...] MD HEMATOLOGY ORDERABLE S Performing Organization Address City/[facility]/ZIP Co de Phone Number [facility] [address] * Magnesium (05/17/2022 3:33 AM EDT) Magnesium 0.76 0.69 - 1.07 mmol/L [facility] Blood Venous Draw / Unknown 05/17/2022 3:33 AM EDT 05/17/2022 4:05 AM EDT Narrative Resulting Agency Comment Spec In Lab Dottie Hill APRN CHEMISTRY ORDERABL ES [facility] [address] * (ABNORMAL) Basic Metabolic Panel (non-fasting) (05/17/2022 3:33 AM EDT) Glucose 158 65 - 199 mg/dL [facility] Comment:Diabetes: >=200 mg/d L plus symptoms Blood Urea Nitrogen 12 10 - 20 mg/dL [facility] Creatinine 0.74(L) 0.80 - 1.50 mg/dL [facility] questions. Chloride 102 98 - 107 mmol/L [facility] Carbon Dioxide 25 22 - 31 mmol/L [facility] Anion Gap 10 5 - 15 mmol/L [facility] Calcium 8.4(L) 8.5 - 10.5 mg/dL [facility] Est Glomerular Filtration Rate 92 >=60 mL/min/1. 73 m?? [facility] Comment: [...] In Lab Fito Summers MD CHEMISTRY ORDERABLES [facility] [place] [address] * (ABNORMAL) Differential, Automated (05/17/2022 3:33 AM EDT) Neutrophil % 65.5 % [facility] Neutrophil Absolute 6.84(H) 1.70 - 6.10 x10(3)/mc L [facility] Lymph % 19.7 % [facility] Lymphocytes Abs 2.1 0.9 - 3.2 x10(3)/mc L [facility] Monocyte % 13.1 % [facility] Monocyte Abs 1.4(H) 0.3 - 0.9 x10(3)/mc L [facility] Eos % 0.6 % [facility] Eosinophils Abs 0.1 0.0 - 0.4 x10(3)/mc L [facility] Basophil % 0.6 % [facility] Baso Absolute 0.1 0.0 - 0.1 x10(3)/mc L [facility] Immature Gran % 0.50 % [facility] Comment: Immature granulocytes(IG's)percentage and absolute count will include metamyelocytes, myelocytes, and promyelocytes. Blood smears from CBCs yielding IG's will be scanned manually for concordance. If this scan disagrees with the automated IG or if promyelocytes are noted, a manual differential will be performed. Immature Gran Absolute 0.05(H) 0.00 - 0.04 x10(3)/ L [facility] Blood 05/17/2022 3:33 AM EDT 05/17/2022 3:53 AM EDT Narrative Resulting Agency Comment Spec In Lab Edward Rodríguez MD HEMATOLOGY ORDER NICK Performing Organization Address City/State/[facility] Co de Phone Number [facility] [place] [address] * (ABNORMAL) Hemogram (05/17/2022 3:33 AM EDT) White Blood Cell 10.4(H) 4.0 - 9.5 x10(3)/[facility] Red Blood Cell 3.72(L) 4.58 - 5.54 x10(6)/[facility] Hemoglobin 12.0(L) 13.7 - 16.5 g/dL [facility] Hematocrit 36.4(L) 40.5 - 48.5 % [facility] Mean Cell Volume 97.8(H) 82.9 - 93.1 [facility] Mean Cell Hemoglobin 32.3(H) 27.5 - 32.1 pg [facility] Mean Cell Hemoglobin Concentration 33.0 32.0 - 35.7 g/dL [facility] Platelet 149 145 - 357 x10(3)/[facility] RDW Standard Deviation 48.7(H) 36.0 - 45.0 [facility] RDW coefficient of variation 13.5 11.4 - 13.8 % [facility] Mean Platelet Volume 10.6 7.6 - 12.9 [facility] NRBC% auto 0.0 % [facility] NRBC Absolute 0.000 0.000 - 0.000 x10(3)/[facility] Blood 05/17/2022 3:33 AM EDT 05/17/2022 3:53 AM EDT Narrative Resulting Agency Comment Spec In Lab Edward Rodríguez MD HEMATOLOGY ORDER NICK Performing Organization Address [facility]/ZIP Co de Phone Number [facility] [place] [address] * (ABNORMAL) Urinalysis Microscopic Exam (05/16/2022 11:15 PM EDT) RBC, Urine 8(H) 0 - 3 /HPF [facility] WBC, Urine 2 0 - 3 /HPF [facility] Clean Catch Urine 05/16/2022 11:15 PM EDT 05/16/2022 11:30 PM EDT Narrative Resulting Agency Comment Spec In Lab Barbie Patiño MD URINE ORDERABLES Performing Organization Address [facility] Co de Phone Number [facility] [place] [address] * (ABNORMAL) Urinalysis with reflex Culture (05/16/2022 11:15 PM EDT) Glucose, Urine Dipstick Negative Negative mg/dL [facility] Protein, Urine Dipstick Negative Negative mg/dL [facility] Bilirubin, Urine Dipstick Negative Negative mg/dL [facility] Comment: Clinical correlation required for positive Urine Bilirubin results as false positive may occur with some drugs and drug related products. If a false positive is suspected a serum total bilirubin should be considered if clinically indicated. Urobilinogen, Urine Dipstick Normal Normal mg/dL [facility] pH, Urn (dipstick) 6.0 5.0 - 8.0 [facility] Blood, Urine Dipstick Small(A) Negative mg/dL [facility] Ketone, Urine Dipstick Trace(A) Negative mg/dL [facility] Nitrite, Urine Dipstick Negative Negative [facility] Leukocytes, Urine Dipstick Negative Negative [facility] Appearance, Urine Dipstick Clear Clear [facility] Specific [place] Urine Automated 1.021 1.005 - 1.030 [facility] Color, Urine Dipstick Yellow Yellow [facility] Reflex to Culture No [facility] Clean Catch Urine 05/16/2022 11:15 PM EDT 05/16/2022 11:30 PM EDT Narrative Resulting Agency Comment Spec In Lab Fito Summers MD URINE ORDERABLES Performing Organization Address [facility]/ZIP [place] [address] * Heparin (unfractionated) Level (05/16/2022 10:59 PM EDT) UF Heparin 0.65 IU/mL [facility] Comment: Specimen drawn more than [...] MD HEMATOLOGY ORDERABLE S Performing Organization Address City/[facility]/ZIP Co de Phone Number [facility] [place] [address] * XR Chest One View (05/16/2022 9:14 [...] questions please contact the health director of healthcare systems that requested your imaging first. ? Electronically signed by: Tiffanie George MD, [facility] ([phone]), at 05/16/2022 9:27 PM Narrative 05/16/2022 9:27 [...] have questions please contactthe health director of healthcare systems that requested your imaging first. Electronically signed by: Tiffanie George MD, [facility]([phone]), at 05/16/2022 9:27 PM Fito Summers MD IMG DX ORDERABLES * EKG 12 Lead (05/16/2022 8:57 PM EDT) Ventricular rate 117 BPM MUSE SYSTEM QRS Duration 112 ms MUSE SYSTEM Q-T Interval 346 ms MUSE SYSTEM QTC Calculated (Bezet) 482 ms MUSE SYSTEM Calculated R [place] -48 degrees MUSE SYSTEM Calculated T [place] 111 degrees MUSE SYSTEM INTERPRETATION Atrial fibrillation with rapid ventricular response Left anterior fascicular block Minimal voltage criteria for LVH, may be normal variant ( [place] product ) Nonspecific ST and T wave [...] 4:34 PM EDT) UF Heparin 0.53 IU/mL [facility] Comment: Heparin (anti-Xa) levels should [...] Lab Fito Summers MD HEMATOLOGY ORDERABLE S [facility] [address] [facility] [place] [address] * ECHO COMPLETE W CONTRAST (05/16/2022 12:49 PM EDT) EF 28 HEARTLAB SYSTEM Anatomical Region Laterality Modality Cardiac Other 05/16/2022 11:2 2 AM EDT Narrative 05/16/2022 1:54 PM EDT ?[facility] ?[address] ? [place] [address] ?Voice: ?Fax: ? Echocardiogram Report Name: KOKO BAH ?Study Date: 05/16/2022 11:22 AM ? Patient Location: [facility] 0[address] B : 1940 ? Height: 67.5 in ? Account: [id number] Age: 81 yrs ? Weight: 176 lb Gender: Male ?BSA: 1.9 m2 Ordering Physician: FITO SUMMERS Referring Physician: MAIK FLORIAN Performed By: Jolene Bernard RDCS Exam Location: [facility]. Interpretation Summary Left ventricle [...] and LV systolic dysfunction are new. Procedure Complete-[id number]. Image enhancement Optison was used for both [...] Procedure Note Gladys Jaime MD - 05/16/2022 [facility] [place] [address] Voice: Fax: Echocardiogram Report Name: [id number] Study Date: 1:22 AM Patient Location: [id number] : 1940 Height: 67.5 in Account: [id number] Age: 81 yrs Weight: 176 lb Gender: Male BSA: 1.9 m2 Ordering Physician: FITO SUMMERS Referring Physician: MAIK FLORIAN Performed By: Jolene Bernard RDCS Exam Location: [facility]. Interpretation Summary Left ventricle [...] moderate and LV systolicdysfunction are new. Procedure Complete-[id number]. Image enhancement Optison was used for both [...] 3:01 AM EDT) Neutrophil % 78.8 % [facility] Neutrophil Absolute 9.11(H) 1.70 - 6.10 x10(3)/mc L [facility] Lymph % 9.4 % [facility] Lymphocytes Abs 1.1 0.9 - 3.2 x10(3)/ L [facility] Monocyte % 10.9 % [facility] Monocyte Abs 1.3(H) 0.3 - 0.9 x10(3)/ L [facility] Eos % 0.0 % [facility] Eosinophils Abs 0.0 0.0 - 0.4 x10(3)/ L [facility] Basophil % 0.3 % [facility] Baso Absolute 0.0 0.0 - 0.1 x10(3)/[facility] Immature Gran % 0.60 % [facility] Comment: Immature granulocytes(IG's)percentage and absolute count will include metamyelocytes, myelocytes, and promyelocytes. Blood smears from CBCs yielding IG's will be scanned manually for concordance. If this scan disagrees with the automated IG or if promyelocytes are noted, a manual differential will be performed. Immature Gran Absolute 0.07(H) 0.00 - 0.04 x10(3)/ L [facility] Blood 05/16/2022 3:01 AM EDT 05/16/2022 3:36 AM EDT Narrative Resulting Agency Comment Spec In Lab Erin Garza MD HEMATOLOGY ORDERABLE S [facility] [place] [address] * (ABNORMAL) Hemogram (05/16/2022 3:01 AM EDT) White Blood Cell 11.6(H) 4.0 - 9.5 x10(3)/ L [facility] Red Blood Cell 3.62(L) 4.58 - 5.54 x10(6)/ L [facility] Hemoglobin 12.0(L) 13.7 - 16.5 g/dL [facility] Hematocrit 35.3(L) 40.5 - 48.5 % [facility] Mean Cell Volume 97.5(H) 82.9 - 93.1 fL [facility] Mean Cell Hemoglobin 33.1(H) 27.5 - 32.1 pg [facility] Mean Cell Hemoglobin Concentration 34.0 32.0 - 35.7 g/dL [facility] Platelet 151 145 - 357 x10(3)/mc L [facility] RDW Standard Deviation 47.6(H) 36.0 - 45.0 fL [facility] RDW coefficient of variation 13.3 11.4 - 13.8 % [facility] Mean Platelet Volume 10.5 7.6 - 12.9 [facility] NRBC% auto 0.0 % [facility] NRBC Absolute 0.000 0.000 - 0.000 x10(3)/mc L [facility] Blood 05/16/2022 3:01 AM EDT 05/16/2022 3:36 AM EDT Narrative Resulting Agency Comment Spec In Lab Erin Garza MD HEMATOLOGY ORDERABLE S Performing Organization Address City/[facility] Co de Phone Number [facility] [place] [address] * Phosphorus (05/16/2022 3:01 AM EDT) Phosphorus 3.7 2.5 - 4.5 mg/dL [facility] Blood 05/16/2022 3:01 AM EDT 05/16/2022 3:36 AM EDT Narrative Resulting Agency Comment Spec In Lab Fito Summers MD CHEMISTRY ORDERABLES Performing Organization Address [facility]/ZIP Co de Phone Number [facility] [place] [address] * Magnesium (05/16/2022 3:01 AM EDT) Magnesium 0.77 0.69 - 1.07 mmol/L [facility] Blood 05/16/2022 3:01 AM EDT 05/16/2022 3:36 AM EDT Narrative Resulting Agency Comment Spec In Lab Fito Summers MD CHEMISTRY ORDERABLES [facility] [place] [address] * (ABNORMAL) Basic Metabolic Panel (non-fasting) (05/16/2022 3:01 AM EDT) Glucose 222(H) 65 - 199 mg/dL [facility] Comment:Diabetes: >=200 mg/d L plus symptoms Blood Urea Nitrogen 12 10 - 20 mg/dL [facility] Creatinine 0.66(L) 0.80 - 1.50 mg/dL [facility] questions. Chloride 108(H) 98 - 107 mmol/L [facility] Carbon Dioxide 22 22 - 31 mmol/L [facility] Anion Gap 8 5 - 15 mmol/L [facility] Calcium 8.2(L) 8.5 - 10.5 mg/dL [facility] Est Glomerular Filtration Rate 95 >=60 mL/min/1. 73 m?? [facility] Comment: [...] In Lab Fito Summers MD CHEMISTRY ORDERABLES [facility] [place] [address] * (ABNORMAL) BLOOD GAS 2 ARTERIAL (05/15/2022 3:33 PM EDT) pH, Arterial 7.33(L) 7.35 - 7.45 [facility] PCO2, Arterial 41 35 - 45 mmHg [facility] PO2, Arterial 131(H) 85 - 104 mmHg [facility] Bicarbonate, Arterial 21.1 20.0 - 26.0 mmol/L [facility] Base Excess, Arterial -4.8(L) -3.0 - 3.0 mmol/L [facility] Hgb Blood Gas 13.4(L) 13.7 - 16.5 g/dL [facility] Oxyhemoglobin, Arterial 96.9 94.0 - 97.0 % [facility] Carboxyhemoglob in, Arterial 1.4 % [facility] Comment: Nonsmokers: 0.5-1.5% COHB Smokers: Variable, but usually less than 10% Toxic: 20-30% COHB Lethal: Greater than 60% COHB Methemoglobin, Arterial 0.3 <=1.5 % [facility] [...] Whole Blood 113(H) 98 - 107 mmol/L [facility] Gluc Whole Bld 136 65 - 199 mg/dL [facility] Comment:Diabetes: >=200 mg/d L plus symptoms. Lactate WB 2.0 0.5 - 2.2 mmol/L [facility] Blood 05/15/2022 3:33 PM EDT 05/15/2022 3:[address] Jamel Torre MD POINT OF CARE TEST O RDERABLES [facility] [place] [address] * (ABNORMAL) BLOOD GAS 2 ARTERIAL (05/15/2022 2:06 PM EDT) pH, Arterial 7.39 7.35 - 7.45 [facility] PCO2, Arterial 35 35 - 45 mmHg [facility] PO2, Arterial 135(H) 85 - 104 mmHg [facility] Bicarbonate, Arterial 20.8 20.0 - 26.0 mmol/L [facility] Base Excess, Arterial -4.2(L) -3.0 - 3.0 mmol/L [facility] Hgb Blood Gas 14.5 13.7 - 16.5 g/dL [facility] Oxyhemoglobin, Arterial 97.2(H) 94.0 - 97.0 % [facility] Carboxyhemoglob in, Arterial 1.2 % [facility] Comment: Nonsmokers: 0.5-1.5% COHB Smokers: Variable, but usually less than 10% Toxic: 20-30% COHB Lethal: Greater than 60% COHB Methemoglobin, Arterial 0.3 <=1.5 % [facility] [...] Whole Blood 1.12(L) 1.15 - 1.33 mmol/L [facility] Comment: Note: ??Total bilirubin higher than 20 mg/dL may lead to falsely low ionized calcium. CL Whole Blood 109(H) 98 - 107 mmol/L [facility] Gluc Whole Bld 152 65 - 199 mg/dL [facility] Comment:Diabetes: >=200 mg/d L plus symptoms. Lactate WB 1.5 0.5 - 2.2 mmol/L [facility] Blood 05/15/2022 2:06 PM EDT 05/15/2022 2:[address] Jamel Torre MD POINT OF CARE TEST O RDERABLES Performing Organization Address [facility]/ZIP Co de Phone Number [facility] [place] [address] * (ABNORMAL) Prothrombin Time (05/15/2022 12:30 PM EDT) Prothrombin Time 12.9(H) 9.4 - 12.5 sec [facility] International Normalization Ratio 1.1 [facility] Comment: [...] DO HEMATOLOGY ORDERABLE S Performing Organization Address [facility]/ZIP Co de Phone Number [facility] [place] [address] * (ABNORMAL) APTT (05/15/2022 12:30 PM EDT) Partial Thromboplastin Time 76(H) 25 - 37 sec [facility] DO HEMATOLOGY ORDERABLE S Performing Organization Address [facility]/ZIP Co de Phone Number [facility] [place] [address] * Gold Tube HOLD (05/15/2022 12:20 PM EDT) [facility] Gold Hold Sample in lab. [facility] Blood No Charge / Unknown 05/15/2022 12:20 PM EDT 05/15/2022 12:20 PM EDT Lc TRIPP CHEMISTRY ORDERABLES Performing Organization Address [facility]/ZIP Co de Phone Number [facility] [place] [address] * Type and Screen Validity (05/15/2022 12:00 PM EDT) T&S only valid at [facility] Comment:This Type and Screen result is only valid at the [facility] Blood 05/15/2022 12:0 0 PM EDT 05/15/2022 12:17 PM EDT Narrative Resulting Agency Comment Spec In Lab Lc TRIPP BLOOD BANK LAB ORDER NICK Performing Organization Address City/[facility]/ZIP Co de Phone Number [facility] [place] [address] * ABORH Recheck Status (05/15/2022 12:00 PM EDT) ABORH Recheck Order Order Placed [facility] ABORH Type Recheck Complete [facility] Blood 05/15/2022 12:0 0 PM EDT 05/15/2022 12:17 PM EDT Narrative Resulting Agency Comment Spec In Lab Lc TRIPP BLOOD BANK LAB ORDER NICK [facility] [address] * CK (05/15/2022 12:00 PM EDT) Creatine Kinase 87 0 - 200 unit/L [facility] Blood Venous Draw / Unknown 05/15/2022 12:00 PM EDT 05/15/2022 12:19 PM EDT Narrative Resulting Agency Comment Spec In Lab Fito Summers MD CHEMISTRY ORDERABLES [facility] [place] [address] * Antibody screen (05/15/2022 12:00 PM EDT) Ab Screen Interp Negative [facility] Expires at [id number] on: 05/18/2022 [facility] Blood 05/15/2022 12:0 0 PM EDT 05/15/2022 12:17 PM EDT Narrative Resulting Agency Comment Spec In Lab Lc TRIPP BLOOD BANK LAB ORDER NICK [facility] [place] [address] * ABO/Rh Typing (05/15/2022 12:00 PM EDT) ABORH Type O Pos [facility] Blood 05/15/2022 12:0 0 PM EDT 05/15/2022 12:17 PM EDT Narrative Resulting Agency Comment Spec In Lab Lc TRIPP BLOOD BANK LAB ORDER NICK [facility] [place] [address] * (ABNORMAL) Differential, Automated (05/15/2022 12:00 PM EDT) Neutrophil % 79.4 % [facility] Neutrophil Absolute 7.49(H) 1.70 - 6.10 x10(3)/ L [facility] Lymph % 11.3 % [facility] Lymphocytes Abs 1.1 0.9 - 3.2 x10(3)/[facility] Monocyte % 7.8 % [facility] Monocyte Abs 0.7 0.3 - 0.9 x10(3)/ L [facility] Eos % 0.6 % [facility] Eosinophils Abs 0.1 0.0 - 0.4 x10(3)/[facility] Basophil % 0.6 % [facility] Baso Absolute 0.1 0.0 - 0.1 x10(3)/ L [facility] Immature Gran % 0.30 % [facility] Comment: Immature granulocytes(IG's)percentage and absolute count will include metamyelocytes, myelocytes, and promyelocytes. Blood smears from CBCs yielding IG's will be scanned manually for concordance. If this scan disagrees with the automated IG or if promyelocytes are noted, a manual differential will be performed. Immature Gran Absolute 0.03 0.00 - 0.04 x10(3)/ L [facility] Blood 05/15/2022 12:0 0 PM EDT 05/15/2022 12:19 PM EDT Narrative Resulting Agency Comment Spec In Lab Lc TRIPP HEMATOLOGY ORDERABLE S [facility] [place] [address] * (ABNORMAL) Hemogram (05/15/2022 12:00 PM EDT) White Blood Cell 9.4 4.0 - 9.5 x10(3)/mc L [facility] Red Blood Cell 4.48(L) 4.58 - 5.54 x10(6)/mc L [facility] Hemoglobin 14.5 13.7 - 16.5 g/dL [facility] Hematocrit 42.4 40.5 - 48.5 % [facility] Mean Cell Volume 94.6(H) 82.9 - 93.1 fL [facility] Mean Cell Hemoglobin 32.4(H) 27.5 - 32.1 pg [facility] Mean Cell Hemoglobin Concentration 34.2 32.0 - 35.7 g/dL [facility] Platelet 209 145 - 357 x10(3)/mc L [facility] RDW Standard Deviation 45.9(H) 36.0 - 45.0 [facility] RDW coefficient of variation 13.1 11.4 - 13.8 % [facility] Mean Platelet Volume 10.5 7.6 - 12.9 [facility] NRBC% auto 0.0 % [facility] NRBC Absolute 0.000 0.000 - 0.000 x10(3)/mc L [facility] Blood 05/15/2022 12:0 0 PM EDT 05/15/2022 12:19 PM EDT Narrative Resulting Agency Comment Spec In Lab Lc TRIPP HEMATOLOGY ORDERABLE S [facility] [place] [address] * (ABNORMAL) Basic Metabolic Panel (non-fasting) (05/15/2022 12:00 PM EDT) Glucose 203(H) 65 - 199 mg/dL [facility] Comment:Diabetes: >=200 mg/d L plus symptoms Blood Urea Nitrogen 16 10 - 20 mg/dL [facility] [...] questions. Chloride 107 98 - 107 mmol/L [facility] Carbon Dioxide 23 22 - 31 mmol/L [facility] Anion Gap 11 5 - 15 mmol/L [facility] Calcium 8.5 8.5 - 10.5 mg/dL [facility] Est Glomerular Filtration Rate 89 >=60 mL/min/1. 73 m?? [facility] Comment: [...] In Lab Jhonny Morales DO CHEMISTRY ORDERABLES [facility] [place] [phone] documented in this encounter Visit Diagnoses Not [...] Transfer to a Procedural area)1955 ([facility] Unhold - Provider: Admin Adt) 0816 (Given [...] Provider: Barbie Joyce RN - Reason: NPO)1750 ([facility] Hold - Provider: Admin Adt - Reason: Transfer to a Procedural area)1955 ([facility] Unhold - Provider: Admin Adt)2131 (Given - [...] 0853 (Given - Provider: Barbie Joyce, DION)1750 ([facility] Hold - Provider: Admin Adt - Reason: Transfer to a Procedural area)1955 ([facility] Unhold - Provider: Admin Adt) 0816 (Given [...] pain medications are indicated. , Routine 175 ([facility] Hold - Provider: Admin Adt - Reason: Transfer to a Procedural area)1955 ([facility] Unhold - Provider: Admin Adt) alum-mag hydroxide-simeth [...] Transfer to a Procedural area)1955 ([facility] Unhold - Provider: Admin Adt) midazolam (pf) [...] Transfer to a Procedural area)1955 ([facility] Unhold - Provider: Admin Adt) sodium chloride [...] Routine documented in this encounter Care Teams Information Architect Relationship Specialty Start Date End Date Bobby Das MD [address] [place] [address] [place] [phone] PCP - General 10/02/10 documented as of this encounter
--- OUTSIDE RECORDS SUMMARY | 2024-09-30 17:05 | XMS_ITS | Encounter Summary ---
Author Organization Formerly [facility] Address [facility] [place] [address] Care Team Providers Care Cold Mill Inspector Name Role Phone Bobby Das MD Primary Care Provider [phone] Encounter Details Date Type Department Care Team (Late st Contact Info) Description 05/15/2022 9:40 AM EDT Ancillary Procedure Radiology Library at [facility] [place] [address] Matt Branham MD [facility] [place] [address] Social History Tobacco Use Types Packs/Day Years [...] CT Abdomen (05/15/2022 9:32 AM EDT) Narrative [facility] - 05/15/2022 9:32 AM EDT This exam is auto-finalizing. It's purpose is for storage only. Matt Branham MD IM FILM LIBRARY ORD ERABLES [facility] [place], [place] documented in this encounter Visit Diagnoses Not on filedocumented in this encounter Care Teams Cold Mill Inspector Relationship Specialty Start Date End Date Bobby Das MD [address] [place] [address] [place] [phone] PCP - General 10/02/10 documented as of this encounter
--- OUTSIDE RECORDS SUMMARY | 2024-09-30 17:05 | XMS_ITS | Encounter Summary ---
Author Organization [facility] Address [facility] [place] [address] Care Team Providers Care Behaviorist Name Role Phone Bobby Das MD Primary Care Provider [phone] Encounter Details Date Type Department Care Team (Late st Contact Info) Description 06/16/2019 Ancillary Procedure Radiology Library at [facility] [place] [address] Bobby Das MD [address] [place] [phone] Social History Tobacco Use Types Packs/Day Years [...] MR Spine (06/16/2019 12:00 AM EDT) Narrative [facility] - 06/29/2019 9:48 PM EDT This exam is auto-finalizing. It's purpose is for storage only. Bobby Das MD G FILM LIBRARY ORD ERABLES Performing Organization Address City/State/[facility] Co de Phone Number [facility] [place], [place] documented in this encounter Visit Diagnoses Not on filedocumented in this encounter Care Teams Behaviorist Relationship Specialty Start Date End Date Bobby Das MD [address] [place] [address] [place] [address] PCP - General 10/02/10 documented as of this encounter
--- OUTSIDE RECORDS SUMMARY | 2024-09-30 17:05 | XMS_ITS | Encounter Summary ---
Author Organization Formerly [facility] Address [facility] [place] [address] Care Team Providers Care Curriculum Developer Name Role Phone Bobby Das MD Primary Care Provider [phone] Encounter Details Date Type Department Care Team (Late st Contact Info) Description 05/15/2022 9:35 AM EDT Ancillary Procedure Radiology Library at [facility] [place] [address] Matt Branham MD [facility] [place] [address] Social History Tobacco Use Types Packs/Day Years [...] DX Chest (05/15/2022 9:31 AM EDT) Narrative [facility]NOTE 2[facility] - 05/15/2022 9:31 AM EDT This exam is auto-finalizing. It's purpose is for storage only. Matt Branham MD IM FILM LIBRARY ORD ERABLES DH [place], [place] documented in this encounter Visit Diagnoses Not on filedocumented in this encounter Care Teams Curriculum Developer Relationship Specialty Start Date End Date Bobby Das MD [address] [place] [address] [place] [phone] PCP - General 10/02/10 documented as of this encounter
--- OUTSIDE RECORDS SUMMARY | 2024-09-30 17:05 | XMS_ITS | Encounter Summary ---
Author Organization [facility] [place] [address] Care Team Providers Care Miter Grinder Operator Name Role Phone Bobby Das MD Primary Care Provider [phone] Encounter Details Date Type Department Care Team (Latest Contact Info) Description 10/25/2020 6:35 AM EST [place] [phone] Compression fracture of T9 vertebra, initial encounter [...] EST) Platelet 192 145 - 357 x10(3)/mc [facility] Immature Plt % 2.6 0.0 - 7.4 % [facility] Comment: Limitation of the Immature Platelet Fraction (IPF)-May be less reliable when the platelet count is less than 80o241/uL due to statistical imprecision. The IPF value [...] in a decreased state of production. References: [employer] The Clinical Value of the Immature Platelet Fraction (IPF) in Cell Recovery Document Number [id number] 04/2011 [employer] The Role of the Immature Platelet Fraction (IPF) in the Differential Diagnosis of Thrombocytopenia, Document [id number] V05/10/23 P014 Blood specimen (specimen) 10/25/2020 6:35 AM EST 10/25/2020 6:52 AM EST Narrative Resulting Agency Comment Spec In Lab Alphonso Esquivel DO HEMATOLOGY ORDERABLE S [facility] [place] [address] * Prothrombin Time (10/25/2020 6:35 AM EST) Prothrombin Time 10.8 9.4 - 12.5 sec [facility] [...] Lab Alphonso Esquivel DO HEMATOLOGY ORDERABLE S [facility] [place] [address] documented in this encounter Visit Diagnoses Diagnosis Compression fracture of T9 vertebra, initial encounter documented in this encounter Care Teams Miter Grinder Operator Relationship Specialty Start Date End Date Bobby Das MD [address] [place] [address] [place] [address] PCP - General 10/02/10 documented as of this encounter
--- OUTSIDE RECORDS SUMMARY | 2024-09-30 17:05 | XMS_ITS | Encounter Summary ---
Author Organization [facility] Address [facility] [place] [address] Care Team Providers Care Microbiology Supervisor Name Role Phone Bobby Das MD Primary Care Provider [phone] Reason for Visit * Reason Comments Basal Cell Carcinoma * Consultation (Routine) - Closed Specialty Diagnoses / Procedures Referred By Colby quezada Referred To Contact Dermatology Diagnoses REQUESTING MOHS PROCEDURE RIGHT EYEBROW FOR LESION REMOVED BUT ADDITIONAL TISSUE REMAINS Bobby Das MD [address] [place] [phone] Alvaro Llanos MD [facility] [place] [address] Referral ID Status Reason Start Date Expiration Date V isits Requested Visits Authorized [id number] Closed Consult, Test & Treat Connection Center 06/24/2018 06/24/2019 1 1 Encounter Details Date Type Department Care Team (Latest Contact Info) Description 09/23/2018 10:00 AM EST Procedure visit Dermatology at [address] [place] [address] Alvaro Llanos MD [facility] [place] [address] Basal cell carcinoma (BCC) of [...] Llanos MD. Your wound(s) was repaired by [id number]-[id number] stitchescalled a primary repair. You do not [...] until your sutures are removed. 5. Some enrollment advisor may need to be delayed or delegated [...] as often as is recommended by your critical care unit manager, for new skin cancers. This is [...] it. If after hours, please call the flexo operator or [phone] and ask for the critical care unit manager on-call. If you have any non-urgent questions or concerns, please feel free to call my office or contact me through our patient portal, [email or web address], at [email or web address] How to contact us during business hours Dermatology at [facility] [address]: Mohs scheduling or Mohs follow-up appointments: [phone] documented in this encounter Progress Notes * [...] lives with patient (i.e. spouse, children, senior care/[place] [facility])? Spouse Relevant travel history [...] follow up with his or her referring critical care unit manager or other skin provider. Summary of [...] Date: 09/23/2018 Staff Surgeon: Alvaro Llanos MD Nursing/Junk Removal Specialist(s): Assistants: Cassy Jacobson LPN, Jolene Pretty RN, Yolanda Fraser LPN,Savanah Licea CMA Vertical Lathe Operator (s): Cristina Cisneros Amanda Isenor Pre-operative [...] The site was confirmed with the patient/authorized patient access representative/referring physician and/or a photograph form time [...] Right eyebrow Indication: repair of wound for voodoo of function/anatomy Final Defect size: 1.5 x [...] eyebrow documented in this encounter Care Teams Microbiology Supervisor Relationship Specialty Start Date End Date Bobby Das MD [address] [place] [address] [place] [phone] PCP - General 10/02/10 documented as of this encounter
--- OUTSIDE RECORDS SUMMARY | 2024-09-30 17:05 | XMS_ITS | Encounter Summary ---
Author Organization [place] [address] Care Team Providers Care Navy Seal Name Role Phone Bobby Das MD Primary Care Provider [phone] Encounter Details Date Type Department Care Team (Late st Contact Info) Description 08/06/2020 Ancillary Procedure Radiology at [facility] [address] [place] [address] Amy Grimaldo MD [address] [place] [address] Social History Tobacco Use Types Packs/Day Years [...] Amy Grimaldo MD IMG FILM LIBRARY ORDERABLES [place], [place] documented in this encounter Visit Diagnoses Not on filedocumented in this encounter Care Teams Navy Seal Relationship Specialty Start Date End Date Bobby Das MD [address] [place] [address] [place] [phone] PCP - General 10/02/10 documented as of this encounter
--- OUTSIDE RECORDS SUMMARY | 2024-09-30 17:05 | XMS_ITS | Encounter Summary ---
Author Organization Formerly [facility] Address [facility] [place] [address] Care Team Providers Care Dealer Accounts Investigator Name Role Phone Bobby Das MD Primary Care Provider [phone] Reason for Visit * - Closed Specialty Diagnoses / Procedures Referred By Colby quezada Referred To Contact Procedures Film Library- Storage Only DX Spine Bobby Das MD [address] [place] [address] [place] [phone] Referral ID Status Reason Start Date Expiration Date Visits Re quested Visits Authorized [id number] Closed 04/13/2021 04/13/2022 1 1 Encounter Details Date Type Department Care Team (Late st Contact Info) Description 01/31/2021 Ancillary Procedure Radiology Library at [facility] [address] Bobby Das MD [address] [place] [address] [place] [phone] Social History Tobacco Use Types Packs/Day [...] Das MD IMG FILM LIBRARY ORD ERABLES [place], [place] documented in this encounter Visit Diagnoses Not on filedocumented in this encounter Care Teams Dealer Accounts Investigator Relationship Specialty Start Date End Date Bobby Das MD [address] [place] [address] [place] [phone] PCP - General 10/02/10 documented as of this encounter
--- OUTSIDE RECORDS SUMMARY | 2024-09-30 17:05 | XMS_ITS | Encounter Summary ---
[place] [address] Care Team Providers Care Filler In Name Role Phone Bobby Das MD Primary Care Provider [phone] Encounter Details Date Type Department Care Team (Late st Contact Info) Description 10/13/2020 Notes [place] [address] Alphonso Esquivel [facility] [place] [place] [address] Social History Tobacco Use Types Packs/Day Years [...] on filedocumented in this encounter Care Teams Filler In Relationship Specialty Start Date End Date Bobby Das MD [address] [place] [address] [place] [phone] PCP - General 10/02/10 documented as of this encounter
--- OUTSIDE RECORDS SUMMARY | 2024-09-30 17:06 | XMS_ITS | Encounter Summary ---
Author Organization [facility] Address [facility] [place] [address] Care Team Providers Care Stallion Manager Name Role Phone Bobby Das MD Primary Care Provider Reason for Visit * Reason Comments Wound Check Encounter Details Date Type Department Care Team (Late st Contact Info) Description 10/25/2015 1:30 PM EST Clinical Support Dermatology at [address] [phone] Leo Solo MD [facility] [place] [address] Follow up Social History Tobacco Use Types [...] with history of basal cell carcinoma, right holiness, s/p Mohs, repaired by transposition flap on who presents for wound check. Denies complications. States when he blinks he can feel the scar tissue. ROS: Otherwise well. No other skin complaints. Exam: General: No acute distress Skin: Limited examination of right holiness shows a well-healed flap with hypertrophy at the edge. Assessment and Plan 1. Basal cell carcinoma, right holiness, s/p Mohs, repaired by transposition flap Kenalog [...] up documented in this encounter Care Teams Stallion Manager Relationship Specialty Start Date End Date Bobby Das MD [address] [place] [address] [place] [phone] PCP - General 10/02/10 documented as of this encounter
--- OUTSIDE RECORDS SUMMARY | 2024-09-30 17:06 | XMS_ITS | Encounter Summary ---
Author Organization [facility] Address [facility] [address] Care Team Providers Care Police Officer Crime Prevention Name Role Phone Bobby Das MD Primary Care Provider [phone] Reason for Visit * Reason Comments Basal Cell Carcinoma Encounter Details Date Type Department Care Team (Late st Contact Info) Description 08/08/2015 1:00 PM EDT Office Visit Dermatology at [facility] [address] [place] [address] Leo Solo MD [facility] [address] [place] [address] BCC (basal cell carcinoma of skin) Discharge [...] Our facility does not offer a guest Xockets-Ciafo network at this time. We also recommend [...] specified we require that you have a dedicated truck driver, as surgery can be stressful and tiring. If you are being transportedfrom a fci or other similar facility, we request that someone stay with you during this appointment. We are located in the [facility] at [place], [place]. Please referto the [facility] website for detailed driving directions ([email or web address]). When you arrive,please park in the upper parking lot. When you enter the building, go to the third floor, the hydroelectric plant technician area is located on the left (follow [...] If this fails, contact our office at [phone] (after 5PMplease call [phone] and ask for the Ticket Writer director of food and nutrition services). Avoid bending over, heavy lifting (no greater [...] are taking. Our office phone number is [phone]. documented in this encounter Progress Notes * Leo Solo MD - 08/08/2015 1:50 PM EDT [facility] SURGICAL CONSULT Chief Complaint: Basal cell carcinoma History of Present Illness: Referring Physician: Dr. Zheng, [facility] (07/03/15) Tumor type: BCC Location of Skin Cancer: Right gnosticist Duration of Presence: 1 year Previous Treatment: [...] acute distress. Skin: Limited examination of right gnosticist reveals a 5 mm erythematous papule. Assessment and Plan 1. BCC, right gnosticist Reviewed treament options including wide local excision, [...] unspecified documented in this encounter Care Teams Police Officer Crime Prevention Relationship Specialty Start Date End Date Bobby Das MD [address] [place] [address] [place] [address] PCP - General 10/02/10 documented as of this encounter
--- OUTSIDE RECORDS SUMMARY | 2024-09-30 17:06 | XMS_ITS | Encounter Summary ---
Author Organization [facility] [place] [address] Care Team Providers Care Glass Setter Name Role Phone Bobby Das MD Primary Care Provider [phone] Reason for Visit * Reason Comments Shortness of Breath Encounter Details Date Type Department Care Team (Late st Contact Info) Description 12/24/2011 10:15 AM EST Office Visit [address] [phone] Torrey Giang MD [facility] [place] [address] SOB (shortness of breath) (Primary Dx) Social [...] breath documented in this encounter Care Teams Glass Setter Relationship Specialty Start Date End Date Bobby Das MD [address] [place] [address] [place] [phone] PCP - General 10/02/10 documented as of this encounter
--- OUTSIDE RECORDS SUMMARY | 2024-09-30 17:06 | XMS_ITS | Encounter Summary ---
Author Organization [facility] Address [facility] [place] [address] Care Team Providers Care Currency Machine Operator Name Role Phone Bobby Das MD Primary Care Provider [phone] Reason for Visit * Reason Comments Basal Cell Carcinoma Encounter Details Date Type Department Care Team (Late st Contact Info) Description 08/24/2015 8:30 AM EDT Procedure visit Dermatology at [facility] [address] [place] [address] Leo Solo MD [facility] [place] [address] BCC (basal cell carcinoma of skin) Social [...] when the wound is well cared for. [place] drainage or slight yellowfilm on your bandage [...] the hospital number and ask for the Gynaecological Oncologist therapeutic recreation assistant. Wound Care for Sutured Wounds You should [...] the hospital number and ask for the Gynaecological Oncologist therapeutic recreation assistant. documented in this encounter Progress Notes * Leo Solo MD - 08/24/2015 3:25 PM EDT Operative Report Patient name: Koko Zamora : 1940 Date: 08/24/2015 Staff Surgeon: Leo Solo MD, PhD Director Of Undergraduate Admissions I: Yolanda Rivera, Etta Burciaga, Estefania Momin, Gloria Ferrell MD Brilliandeer Lopper: Kourtney Cabrera Pre-operative diagnosis: Basal cell carcinoma Post-operative diagnosis: Basal cell carcinoma Location: Right anabaptist Procedure: Mohs micrographic surgery Indication for Mohs [...] with the patient/authorized traffic workforce representative/referring physician and a pre-operative time-out was [...] 08/24/2015 Staff Surgeon: Leo Solo MD, PhD Director Of Undergraduate Admissions I: Yolanda Rivera, Estefania Welch Clinical Diagnosis: 3.6 x 2.0 cm surgical defect secondary to Mohs microscopically controlled excision of basal cell carcinoma Location: Right anabaptist Procedure: Transposition flap repair Due to the [...] unspecified documented in this encounter Care Teams Currency Machine Operator Relationship Specialty Start Date End Date Bobby Das MD [address] [place] [address] [place] [address] PCP - General 10/02/10 documented as of this encounter
--- OUTSIDE RECORDS SUMMARY | 2024-09-30 17:06 | XMS_ITS | Encounter Summary ---
Author Organization [facility] Address [facility] [place] [address] Care Team Providers Care Aircraft Instrument Repairer Name Role Phone Bobby Das MD Primary Care Provider [phone] Reason for Visit * Reason Onset Date Comments Pre Procedure Call 08/01/2015 Encounter Details Date Type Department Care Team (Late st Contact Info) Description 08/01/2015 Telephone Dermatology at [facility] [address] [place] [phone] Cassy Jacobson LPN Pre Procedure Call Social [...] filedocumented in this encounter Care Teams Aircraft Instrument Repairer Relationship Specialty Start Date End Date Bobby Das MD [address] [place] [address] [place] [phone] PCP - General 10/02/10 documented as of this encounter
--- OUTSIDE RECORDS SUMMARY | 2024-09-30 17:06 | XMS_ITS | Encounter Summary ---
Author Organization [facility] [place] [address] Care Team Providers Care Adult Care Provider Name Role Phone Bobby Das MD Primary Care Provider [phone] Reason for Visit * Reason Comments Shortness of Breath Encounter Details Date Type Department Care Team (Late st Contact Info) Description 09/17/2011 10:30 AM EST Office Visit [address] [address] Torrey Giang MD [facility] [place] [address] SOB (shortness of breath) (Primary Dx) Social [...] breath documented in this encounter Care Teams Adult Care Provider Relationship Specialty Start Date End Date Bobby Das MD [address] [place] [address] [place] [phone] PCP - General 10/02/10 documented as of this encounter
--- OUTSIDE RECORDS SUMMARY | 2024-09-30 17:06 | XMS_ITS | Encounter Summary ---
Author Organization [facility] [place] [address] Care Team Providers Care Oil Well Perforator Operator Name Role Phone Bobby Das MD Primary Care Provider [phone] Encounter Details Date Type Department Care Team (Late st Contact Info) Description 07/26/2015 External [place] [phone] Provider, Scanning Social History Tobacco Use Types [...] filedocumented in this encounter Care Teams Oil Well Perforator Operator Relationship Specialty Start Date End Date Bobby Das MD [address] [place] [address] [place] [address] PCP - General 10/02/10 documented as of this encounter
--- OUTSIDE RECORDS SUMMARY | 2024-09-30 17:06 | XMS_ITS | Encounter Summary ---
Author Organization [facility] [place] [address] Care Team Providers Care Airplane Cleaner Name Role Phone Bobby Das MD Primary Care Provider [phone] Reason for Referral * Diagnostic Test (Routine) - Specialty Diagnoses / Procedures Referred By Contac t Referred To Contact Radiology Diagnoses Chest pain, unspecified type Chronic abdominal pain Procedures CT Chest w Contrast CT Chest wo Contrast (Generic) Chano Rebolledo MD [facility] [place] [address] [facility] [place] [address] Referral ID Status Reason Start Date Expiration Date Visits Requested Visits Authorized [id number] Specialty Service Requested 12/13/2016 12/13/2017 1 1 * Consultation (Routine) - Closed Specialty Diagnoses / Procedures Referred By Contac t Referred To Contact Neurology Diagnoses Radiculopathy of cervical region Chano Rebolledo MD [facility] [place] [address] [facility] Neurology [address] [place] [address] Referral ID Status Reason Start Date Expiration Date V isits Requested Visits Authorized [id number] Closed Test Only 12/13/2016 12/13/2017 1 1 * Diagnostic Test (Routine) - Closed Specialty Diagnoses / Procedures Referred By Contac t Referred To Contact Radiology Diagnoses Chest pain, unspecified type Chronic abdominal pain Procedures CT Abdomen & Pelvis w Chano Terry MD [facility] [place] [address] [facility] [place] [address] Referral ID Status Reason Start Date Expiration Date V isits Requested Visits Authorized [id number] Closed Specialty Service Requested 12/13/2016 12/13/2017 1 1 Reason for Visit * Reason Comments Pain Management Neck Pain Bilateral Arm Pain burning across nguyen um and ribs, both sides * Consultation (Routine) - Closed Specialty Diagnoses / Procedures Referred By Contac t Referred To Contact Pain Management Diagnoses cervical radiculopathy Bobby Das MD [address] [place] [phone] [facility] [address] [place] [phone] Referral ID Status Reason Start Date Expiration Date V isits Requested Visits Authorized [id number] Closed Consult, Test & Treat 11/22/2016 11/22/2017 1 1 Encounter Details Date Type Department Care Team (Late st Contact Info) Description 12/13/2016 1:00 PM EST Office Visit [place] [address] Leonel Orozco MD [facility] [place] [address] Chest pain, unspecified type; Chronic abdominal pain; [...] Rebolledo MD - 12/13/2016 1:00 PM EST [facility] [place] [address] Phone: PAIN MANAGEMENT NEW PATIENT / CONSULTATION NOTE DATE OF VISIT 12/13/2016 Patient Koko Zamora 1940 REFERRING PROVIDER Bobby Das MD [address] [place] [address] [place] [address] PRIMARY CARE PROVIDER Bobby Das MD CHIEF [...] Aspirin Other (See Comments) 06/28/2011 MEDICATIONS The [place] and [place] Prescription Monitoring Program were checked & no [...] restless FUNCTIONAL /SOCIAL Lives with: 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 Chano Rebolledo MD * Leonel Orozco MD [...] at 12/17/2016 4:06 PM Leonel Orozco MD [facility] CT ORDERABLES * CT Abdomen & Pelvis [...] site documented in this encounter Care Teams Airplane Cleaner Relationship Specialty Start Date End Date Bobby Das MD [address] [place] [address] [place] [phone] PCP - General 10/02/10 documented as of this encounter
--- OUTSIDE RECORDS SUMMARY | 2024-09-30 17:06 | XMS_ITS | Encounter Summary ---
Author Organization [facility] Address [facility] [place] [address] Care Team Providers Care Concrete Float Maker Name Role Phone Bobby Das MD Primary Care Provider [phone] Encounter Details Date Type Department Care Team (Late st Contact Info) Description 12/20/2016 Telephone [place] [phone] Kristin Schultz, RN Social History Tobacco Use [...] [facility]. Which is closer to his home. Will Follow up up with the pain clinic after appointment. documented in this encounter Plan of Treatment Not on file documented as of this encounter Visit Diagnoses Not on filedocumented in this encounter Care Teams Concrete Float Maker Relationship Specialty Start Date End Date Bobby Das MD [address] [place] [address] [place] [phone] PCP - General 10/02/10 documented as of this encounter
--- OUTSIDE RECORDS SUMMARY | 2024-09-30 17:06 | XMS_ITS | Encounter Summary ---
Author Organization [facility] Address [facility] [place] [address] Care Team Providers Care Senior Cost Analyst Name Role Phone Bobby Das MD Primary Care Provider [phone] Reason for Visit * Reason Comments Shortness of Breath Encounter Details Date Type Department Care Team (Late st Contact Info) Description 06/28/2011 4:00 PM EDT Office Visit Cardiology at [address] [phone] Chet Nicole MD [facility] [place] [address] SOB (shortness of breath) (Primary Dx); GIB [...] Giordano MD - 06/28/2011 4:15 PM EDT [facility] Cholesterol and Triglycerides Tests: About These [...] 60 mg/dl is considered ideal. ?? Total xfhawynzvtb-zf-KUI ratio: A ratio of 5:1 or lower is recommended. ?? LDL cholesterol: Between 100-129 mg/dL is recommended. Lower than 100 mg/dL is considered ideal. ?? VLDL cholesterol: 30 mg/dL or less is recommended. ?? Triglycerides: Lower than 150 mg/dL is recommended. Where can you learn more? Visit our health information library at [email or web address]. You can alsoview health information on [employer], your personal patient account. Log in or sign up today. Enter V788 in the search box to learn more about Cholesterol and Triglycerides Tests: About These Tests. ?? [id number] [employer]. Care instructions adapted under license by [facility] [employer]. This care instruction is for use with your licensed healthcare professional. If you have questions about a medical condition or this instruction, always ask your healthcare professional. [employer] disclaims any warranty or liability for your [...] prolapse) s/p repair Surgery done at [facility] in 2000 ??? Hypertriglyceridemia ??? Adhesive capsulitis of L shoulder ??? Alcohol use Medications: Alexis-3 Fatty Acids-Vitamin E (FISH OIL) 1,000 mg [...] (Bezet) 438 ms MUSE SYSTEM Calculated P [place] 60 degrees MUSE SYSTEM Calculated R [place] -51 degrees MUSE SYSTEM Calculated T [place] 32 degrees MUSE SYSTEM INTERPRETATION Normal sinus [...] disorders documented in this encounter Care Teams Senior Cost Analyst Relationship Specialty Start Date End Date Bobby Das MD [address] [place] [address] [place] [address] PCP - General 10/02/10 documented as of this encounter
--- OUTSIDE RECORDS SUMMARY | 2024-09-30 17:06 | XMS_ITS | Encounter Summary ---
Author Organization [facility] Address [place] [address] Care Team Providers Care Hospital Pharmacy Technician Name Role Phone Bobby Das MD Primary Care Provider [phone] Reason for Visit * Reason Onset Date Comments Other 07/19/2011 Encounter Details Date Type Department Care Team (Late st Contact Info) Description 07/19/2011 Telephone Cardiology at [address] [address] Chet Nicole MD [facility] [place] [address] Other Social History Tobacco Use Types Packs/Day [...] in this encounter Care Teams Hospital Pharmacy Technician Relationship Specialty Start Date End Date Bobby Das MD [address] [place] [address] [place] [phone] PCP - General 10/02/10 documented as of this encounter
--- OUTSIDE RECORDS SUMMARY | 2024-09-30 17:06 | XMS_ITS | Encounter Summary ---
Author Organization [facility] Address [facility] [place] [address] Care Team Providers Care Double Reamer Operator Name Role Phone Bobby Das MD Primary Care Provider [phone] Encounter Details Date Type Department Care Team (Late st Contact Info) Description 06/26/2018 Ancillary Procedure Radiology Library at [facility] [place] [address] Bobby Das MD [address] [place] [phone] Social History Tobacco Use Types Packs/Day Years [...] FILM LIBRARY ORD ERABLES Performing Organization Address City/State/[facility] Co de Phone Number DH RAD [place], [place] documented in this encounter Visit Diagnoses Not on filedocumented in this encounter Care Teams Double Reamer Operator Relationship Specialty Start Date End Date Bobby Das MD [address] [place] [address] [place] [address] PCP - General 10/02/10 documented as of this encounter
--- OUTSIDE RECORDS SUMMARY | 2024-09-30 17:06 | XMS_ITS | Encounter Summary ---
Author Organization [facility] [place] [address] Care Team Providers Care First Responder Name Role Phone Bobby Das MD Primary Care Provider [phone] Encounter Details Date Type Department Care Team (Late st Contact Info) Description 09/18/2018 Telephone Dermatology at [facility] [address] [place] [phone] Yolanda Fraser, RN Social History Tobacco Use [...] Who lives with patient (i.e. spouse, children, usp/usp)? Spouse Relevant travel history or future plans: [...] on filedocumented in this encounter Care Teams First Responder Relationship Specialty Start Date End Date Bobby Das MD [address] [place] [address] [place] [phone] PCP - General 10/02/10 documented as of this encounter
--- OUTSIDE RECORDS SUMMARY | 2024-09-30 17:06 | XMS_ITS | Encounter Summary ---
Author Organization [facility] Address [facility] [place] [address] Care Team Providers Care Greige Goods Inspector Name Role Phone Bobby Das MD Primary Care Provider [phone] Encounter Details Date Type Department Care Team (Late st Contact Info) Description 05/13/2018 Ancillary Procedure Radiology Library at [facility] [place] [address] Bobby Das MD [address] [place] [phone] Social History Tobacco Use Types Packs/Day Years [...] CT Spine (05/13/2018 12:00 AM EDT) Narrative [facility] - 06/29/2019 9:44 PM EDT This exam is auto-finalizing. It's purpose is for storage only. Bobby Das MD G FILM LIBRARY ORD ERABLES Performing Organization Address City/State/[facility] Co de Phone Number DH RAD [place], [place] documented in this encounter Visit Diagnoses Not on filedocumented in this encounter Care Teams Greige Goods Inspector Relationship Specialty Start Date End Date Bobby Das MD [address] [place] [address] [place] [address] PCP - General 10/02/10 documented as of this encounter
--- OUTSIDE RECORDS SUMMARY | 2024-09-30 17:06 | XMS_ITS | Encounter Summary ---
Author Organization [facility] Address [facility] [place] [address] Care Team Providers Care City Director Name Role Phone Bobby Das MD Primary Care Provider [phone] Encounter Details Date Type Department Care Team (Late st Contact Info) Description 08/25/2015 Telephone Dermatology at [facility] [address] [place] [address] Gloria Ferrell MD [facility] DR [place] [address] Social History Tobacco Use Types Packs/Day Years [...] filedocumented in this encounter Care Teams City Director Relationship Specialty Start Date End Date Bobby Das MD [address] [place] [address] [place] [address] PCP - General 10/02/10 documented as of this encounter
--- OUTSIDE RECORDS SUMMARY | 2024-09-30 17:06 | XMS_ITS | Encounter Summary ---
Author Organization [facility] Address [facility] [place] [address] Care Team Providers Care Communications Superintendent Name Role Phone Bobby Das MD Primary Care Provider [phone] Encounter Details Date Type Department Care Team (Latest Contact Info) Description 07/25/2015 3:50 PM EDT - 07/25/2015 11:59 PM EDT [place] [address] Leo Solo MD [facility] [place] [address] Discharge Disposition: Home Social History Tobacco Use [...] rendered or confirmed the diagnosis(es). Accession Number: [id number] . ?Surgical Pathology DIAGNOSIS CONSULTATION CASE Outside slides labeled [id number], collection date 07/03/2015. Skin, right restoration, excision: ?- ??BASAL CELL CARCINOMA, INFILTRATIVE TYPE [...] CONSULTATION CASE A - 3 slides labeled [id number], collection date 07/03/2015. [id number] Report to: [facility] Surgical Pathology Department [facility], [facility], 2nd Floor [address] [place], [place] ??[address] SPECIMEN PROCESSING [facility] ([facility]) pathology slide(s) are reviewed. ??Refer to Diagnosis and Specimen Submitted for specific case information. For the full text of the [facility] ([facility]) report(s) please refer to Non-DH Documentation Pathology in the electronic health record (eDH). 07/27/2015 3:42 PM EDT [facility] Consult Case 07/25/2015 9:51 AM EDT 07/25/2015 9:51 AM EDT Leo Solo MD PATHOLOGY/CYTOLOGY O RDERABLES [facility] [place] [phone] documented in this encounter Visit Diagnoses Not on filedocumented in this encounter Care Teams Communications Superintendent Relationship Specialty Start Date End Date Bobby Das MD [address] [place] [address] [place] [address] PCP - General 10/02/10 documented as of this encounter
--- OUTSIDE RECORDS SUMMARY | 2024-09-30 17:06 | XMS_ITS | Encounter Summary ---
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 Chano Rebolledo MD [facility] [place] [address] [facility] Thoracic Surg [address] [place] [phone] Referral ID Status Reason Start Date Expiration Date V isits Requested Visits Authorized [id number] Denied Consult, Test & Treat 12/18/2016 12/18/2017 1 0 Encounter Details Date Type Department Care Team (Late st Contact Info) Description 12/18/2016 Telephone [place] [address] Chano Rebolledo MD [facility] [place] [address] Social History Tobacco Use Types Packs/Day Years [...] I will make a heme/oncology consultation with [facility] for the patient [...] documented in this encounter Care Teams Manager Order Relationship Specialty Start Date End Date Bobby Das MD [address] [place] [address] [place] [address] PCP - General 10/02/10 documented as of this encounter
--- OUTSIDE RECORDS SUMMARY | 2024-09-30 17:06 | XMS_ITS | Encounter Summary ---
Author Organization [facility]ly [facility] [place] [address] Care Team Providers Care Indian Blanket Weaver Name Role Phone Bobby Das MD Primary Care Provider [phone] Reason for Referral * Diagnostic Test (Routine) - Specialty Diagnoses / Procedures Referred By Contac t Referred To Contact Radiology Diagnoses Chest pain, unspecified type Chronic abdominal pain Procedures CT Chest w Contrast CT Chest wo Contrast (Generic) Chano Rebolledo MD [facility] [place] [address] [facility] [place] [address] Referral ID Status Reason Start Date Expiration Date Visits Requested Visits Authorized [id number] Specialty Service Requested 12/13/2016 12/13/2017 1 1 * Diagnostic Test (Routine) - Closed Specialty Diagnoses / Procedures Referred By Contac t Referred To Contact Radiology Diagnoses Chest pain, unspecified type Chronic abdominal pain Procedures CT Abdomen & Pelvis w Contrast Chano Rebolledo MD [facility] [place] [address] [facility] [place] [address] Referral ID Status Reason Start Date Expiration Date V isits Requested Visits Authorized [id number] Closed Specialty Service Requested 12/13/2016 12/13/2017 1 1 Reason for Visit * Diagnostic Test (Routine) - Closed Specialty Diagnoses / Procedures Referred By Colby quezada Referred To Contact Radiology Diagnoses Chest pain, unspecified type Chronic abdominal pain Procedures CT Abdomen & Pelvis w Contrast Chano Rebolledo MD [facility] [place] [address] [facility] [place] [address] Referral ID Status Reason Start Date Expiration Date V isits Requested Visits Authorized [id number] Closed Specialty Service Requested 12/13/2016 12/13/2017 1 1 Encounter Details Date Type Department Care Team (Latest Contact Info) Description 12/17/2016 9:50 AM EST - 12/17/2016 11:59 PM EST Hospital [place] [address] Leonel Orozco MD [facility] [place] [address] Chest pain, unspecified type; Chronic [...] mLs documented in this encounter Care Teams Indian Blanket Weaver Relationship Specialty Start Date End Date Bobby Das MD [address] [place] [address] [place] [phone] PCP - General 10/02/10 documented as of this encounter
--- OUTSIDE RECORDS SUMMARY | 2024-09-30 17:06 | XMS_ITS | Encounter Summary ---
Author Organization [facility] [place] [address] Care Team Providers Care Embossing Calender Operator Name Role Phone Bobby Das MD Primary Care Provider [phone] Reason for Visit * Reason Comments Follow-up Encounter Details Date Type Department Care Team (Late st Contact Info) Description 05/31/2014 1:45 PM EDT Office Visit Dermatology at [place] [address] [place] [address] Cy Knight MD [address] [facility] [place] [address] History of basal cell carcinoma (Primary Dx) [...] from the original note were not included. [facility] Actinic Keratosis: After Your [...] more? Visit our health information library at [email or web address] You can also view health information on [employer], your personal patient account. Log in or sign up today. Enter L364 in the search box to learn more about Actinic Keratosis: After Your Visit. ?? [id number] [email or web address]. Care instructions adapted under license by [facility]. This care instruction is for use with your licensed healthcare professional. If you have questions about a medical condition or this instruction, always ask your healthcare professional. [email or web address] disclaims any warranty or liability for your use of this information. Content Version: [id number]; Last Revised: December 22, 2012 documented in this encounter Progress Notes * Cy Knight MD - 05/31/2014 2:08 PM EDT Problem: Follow up for repeat skin checkup. Shadi follows up after last being seen in March. At that time, I removed using shave C and D a BCCA from the right lateral canthus and a BCCA from the right lateral bahai. I also treated a verruca vulgaris on [...] skin documented in this encounter Care Teams Embossing Calender Operator Relationship Specialty Start Date End Date Bobby Das MD [address] [place] [address] [place] [address] PCP - General 10/02/10 documented as of this encounter
--- OUTSIDE RECORDS SUMMARY | 2024-09-30 17:06 | XMS_ITS | Encounter Summary ---
[place] [address] Care Team Providers Care Rn Telehealth Name Role Phone Bobby Das MD Primary Care Provider [phone] Encounter Details Date Type Department Care Team (Late st Contact Info) Description 12/13/2016 Telephone [place] [phone] Kourtney Hilliard Social History Tobacco Use Types [...] filedocumented in this encounter Care Teams Rn Telehealth Relationship Specialty Start Date End Date Bobby Das MD [address] [place] [address] [place] [address] PCP - General 10/02/10 documented as of this encounter
--- OUTSIDE RECORDS SUMMARY | 2024-09-30 17:06 | XMS_ITS | Encounter Summary ---
Author Organization [facility] [place] [address] Care Team Providers Care Manager Department Name Role Phone Bobby Das MD Primary Care Provider [phone] Reason for Visit * Reason Comments Skin Check Encounter Details Date Type Department Care Team (Late st Contact Info) Description 03/29/2014 1:15 PM EDT Office Visit Dermatology at [address] [phone] Cy Knight MD [address] [place] [address], [facility] [place], [place] [phone] Basal cell carcinoma (Primary Dx); Verruca vulgaris; [...] sun over the years. He lives in [place], [place]. Physical examination reveals a pleasant, 73-year-old [...] keratosis documented in this encounter Care Teams Manager Department Relationship Specialty Start Date End Date Bobby Das MD [address] [place] [address] [place] [address] PCP - General 10/02/10 documented as of this encounter
--- OUTSIDE RECORDS SUMMARY | 2024-09-30 17:06 | XMS_ITS | Encounter Summary ---
[place] [address] Care Team Providers Care Field Education Director Name Role Phone Bobby Das MD Primary Care Provider [phone] Encounter Details Date Type Department Care Team (Late st Contact Info) Description 12/16/2016 Telephone [place] [phone] Negra Butt, RN Social History Tobacco Use [...] filedocumented in this encounter Care Teams Field Education Director Relationship Specialty Start Date End Date Bobby Das MD [address] [place] [address] [place] [address] PCP - General 10/02/10 documented as of this encounter
--- OUTSIDE RECORDS SUMMARY | 2024-09-30 17:06 | XMS_ITS | Encounter Summary ---
Author Organization [facility] Address [facility] [place] [address] Care Team Providers Care Middle School English Teacher Name Role Phone Bobby Das MD Primary Care Provider [phone] Reason for Visit * Reason Comments Suture / Staple Removal Encounter Details Date Type Department Care Team (Late st Contact Info) Description 08/31/2015 2:30 PM EDT Clinical Support Dermatology at [address] [phone] Leo Solo MD [facility] DR [facility]EN[facility] [place] [address] Visit for suture removal Social History Tobacco [...] with history of basal cell carcinoma, right hoahaoism, s/p Mohs repaired by transposition flap repair who is presenting for suture removal. Denies complications. Exam: General: No acute distress Skin: Limited examination of right hoahaoism shows a well-healed flap. There is no erythema, dehiscence, ecchymosis, or drainage. Assessment and Plan 1. Basal cell carcinoma, right hoahaoism, s/p Mohs repaired by transposition flap repair [...] sutures documented in this encounter Care Teams Middle School English Teacher Relationship Specialty Start Date End Date Bobby Das MD [address] [place] [address] [place] [address] PCP - General 10/02/10 documented as of this encounter
[2024-09-30] MEDS: Carvedilol 3.125 MG TAB PO (20:05)
[2024-09-30] MEDS: Melatonin 3 MG TAB PO (20:05)
[2024-09-30] MEDS: Tamsulosin 0.4 MG CAPCR PO (20:05)
[2024-09-30] MEDS: Normal Saline Flush 10 ML SYR IVP (20:06)
[2024-10-01] VITALS (9 sets, daily range): BP systolic 78–110; BP diastolic 42–70; PULSE 47–85; RESP 16–18; TEMP 36.4–36.8; O2SAT 92–98
[2024-10-01] MEDS: Lactated Ringers 250 ML 500 ML IV (05:13)
[2024-10-01 06:20] LABS: Abs Immature Grans 0.01 10^3/uL (0.0-0.06); Absolute Basophil Count 0.03 10^3/uL (0.0-0.2); Absolute Eosinophil Count 0.13 10^3/uL (0.0-0.7); Absolute Monocyte Count 0.71 10^3/uL (0.1-0.8); Absolute Neutrophil Count 3.75 10^3/uL (1.2-6.7); Basophils % 0.5 %; Eosinophils % 2.2 %; HCT 33.7 % (40.0-50.0); Immature Grans % 0.2 %; Lymphocytes % 23.2 %; MCH 30.8 pg (27.0-33.0); MCHC 32.6 % (32.0-36.0); MCV 94 fL (80-95); MPV 11.5 fL (8.0-11.0); Monocytes % 11.8 %; Neutrophils % 62.1 %; Platelet Count 121 10^3/uL (130-400); RBC 3.57 10^6/uL (4.36-5.78); RDW 13.3 % (11.8-14.1); RDW-SD 46.1 fL; WBC 6.03 10^3/uL (4.4-10.8)
[2024-10-01 06:35] LABS: Anion Gap 9.6 mmol/L (3-11); BUN 18 mg/dL (7-18); CO2 26.4 mmol/L (21.0-32.0); CREATININE 0.8 mg/dL (0.70-1.30); Calcium 8.6 mg/dL (8.5-10.1); Chloride 110 mmol/L (98-107); Estimated GFR 88.36 (mL/min/1.73m2); Glucose 143 mg/dL (74-106); Magnesium 1.9 mg/dL (1.8-2.4); Potassium 4.1 mmol/L (3.5-5.1); Sodium 146 mmol/L (136-145)
[2024-10-01 06:45] LABS: NT-proBNP 1128 pg/mL (<300)
--- NOTE | 2024-10-01 08:00 | DI.US_ITS ---
APPROVED REPORT EXAM: Comprehensive 2D, Doppler, and color-flow Echocardiogram Patient Location: In-Patient Room/Bed: [address] Industrial Spraypainter: Venecia Sorto RDCS (AE) Indications: Hypotension with PE, CHF, Chronic A Fib Other Information Study Quality: Adequate Conclusion Normal left ventricular wall thickness and chamber size. Ejection fraction is 35%. There is global hypokinesis Normal right ventricular size. Right ventricle is mildly hypocontractile Both atria are moderately enlarged Aortic valve is calcified and trileaflet. There is severe aortic stenosis. Mean gradient is 23 mmHg . Calculated aortic valve area 0.7 cm??. There is no aortic regurgitation Prior mitral annuloplasty. Mild mitral stenosis and regurgitation Ascending aorta measures 3.9 cm Estimated right ventricular systolic pressure is 35 mmHg Compared to an echocardiogram at [facility] in October 2023, LV function is a bit worse. Degree of a ortic stenosis has progressed Wall motion Left Ventricle The left ventricle is normal size. Left ventricular systolic function is moderate to severely decrea sed. There is normal left ventricular wall thickness. There is global hypokinesis of the left ventric le. There is no ventricular septal defect visualized. LVEF is 35%. Right Ventricle Right ventricle is grossly normal in size. Right ventricle is mildly hypokinetic. Atria Left atrium is moderately dilated. Right atrium is moderately dilated. The interatrial septum is inta ct with no evidence for an atrial septal defect. Aortic Valve Aortic valve is calcified. Aortic valve is trileaflet. Severe aortic stenosis. No aortic regurgitat ion is present. Mitral Valve Mitral annuloplasty changes are present. Mild mitral stenosis. Mild mitral regurgitation. Tricuspid Valve The tricuspid valve is normal in structure. There is no tricuspid valve stenosis. Mild to moderate tr icuspid regurgitation. The RVSP is 35.1_ mmHg. Pulmonic Valve The pulmonary valve is normal in structure. There is no pulmonic valvular stenosis. Trace pulmonic r egurgitation. Great Vessels The aortic root is normal in size. The ascending aorta is mildly dilated. Aortic arch is not well vis ualized. IVC is normal in size and collapses >50% with inspiration. Pericardium There is no pericardial effusion. 2D Dimensions IVSD d PLAX 1.10 cm M: 0.6-1.2 Ao Root d 3.32 cm M: 3.1 - 3.7 LVPW d PLAX 1.10 cm M: 0.6 - 1.2 Ao Asc Diam d 3.90 cm M: 2.6 - 3.4 LVID d PLAX 5.30 cm M: 4.2 - 5.8 LVDs 4.40 cm M: 2.5 - 4.0 LV EF Teichholz 35.4 % FS 17.07 % LV EDV (Teich) 135.6 mL LV ESV (Teich) 87.6 mL M-Mode TAPSE 1.38 cm (M/F) >1.7 Auto EF LV EDV A4C 180.6 mL LV EDV A2C 139.5 mL LV EDV BP 158.3 mL LV ESV A4C 120.4 mL LV ESV A2C 95.1 mL LV ESV BP 106.3 mL LVEF(%) A4C 33.3 % LVEF(%) A2C 31.8 % LVEF(%) BP 32.8 % LV SV A4C 60.2 ml LV SV A2C 44.4 ml LV SV BP 52.0 ml LV CO A4C 7.3 L/min LV CO A2C 5.0 L/min LV CO BP 6.1 L/min HR A4C 121.23 BPM HR A2C 111.80 BPM LV EDV Index (BP) LA Volume LA Length A4C 6.3 cm LA Length A2C 6.0 cm LA Area A4C s 24.98 cm2 LA Area A2C s 28.24 cm2 LA Vol A4C A-L 84.00 mL LA Vol A2C A-L 112.83 mL LA Vol Biplane A-L 99.8 mL LA Vol/BSA A4C A-L LA Vol/BSA A2C A-L LA Vol/BSA BP A-L 52.5 mL/m2 LA Vol A4C MOD 77.5 mL LA Vol A2C MOD 105.9 mL LA Vol BP MOD 92.7 mL RA Volume RA Area A4C 17.3 cm2 RA ESV A4C (A-L) 48.0mL RA Vol/BSA A4C A-L RA Length A4C 5.3 cm RA ESV A4C (MOD) 43.9mL LV Diastology MV E' medial 0.054 (>0.07 m/s) MV E Vmax 1.38 (0.4-1.3 m/s) MV E/E' MED 25.74 (<14) MV E' lateral 0.074 (>0.1 m/s) MV E/E' LAT 18.74 (<14) MV E' Average 0.064 m/s MV E/E'(average) 21.69 Aortic Valve AoV Vmax 2.81 m/s LVOT Vmax 0.75 m/s AoV Peak Grad 31.6 mmHg LVOT Peak Grad 2.3 mmHg AoV Area (Vmax) 0.86 cm2 LVOT VTI 0.169 m AoV VTI 0.754 m LVOT Mean Grad 1.4 mmHg AoV Mean Roland. 2.35 m/s LVOT SV 53.88 mL AoV Mean Grad 23.0 mmHg LVOT Diam s 2.00 cm AoV Area (VTI) 0.71 cm2 AV Regurg Peak Gr. 31.56 mmHg Velocity Ratio 0.27 Mitral Valve MV DT 351 (160-240 msec) MV Vmax TIPS 1.47 m/s MV Mean Grad 3.7 (<2mmHg) MV VTI 0.371 m Pulmonary Valve PV Vmax 1.07 (0.5-1.5 m/s) RVOT Vmax 0.69 m/s PV Peak Grad 4.5 mmHg RVOT Peak Gr. 1.9 mmHg PV Mean Roland 0.74 m/s RVOT VTI 0.148 m PV Mean Grad 2.3 mmHg RVOT Mean Gr. 1.3 mmHg Tricuspid Valve RA Pressure 3.00 mmHg TR Vmax 2.83 m/s TV S' 0.09 m/s TR Peak Grad 32.1 mmHg RVSP (TR) 35.1 mmHg
[2024-10-01] MEDS: Normal Saline Flush 10 ML SYR IVP ×2 (08:40→10:05)
--- NOTE | 2024-10-01 09:48 | PT.INIE ---
PT Notes Visit Reasons: Pulmonary embolism, Atrial fibrillation Physical Therapy Inpatient Initial Evaluation Date: 10/01/2024 Referring Doctor: Matt Prieto MD PT Orders: PT CONSULT: D/C Non-PT dependent Precautions: Fall. Standard. Activity as tolerated. Patient Profile/Admitting Diagnosis: Koko is [id number] male patietn admitted to the ED on 09/30/2024 due to fatigue/lack of neergy, SOB, confusion, and lethargy. Patient was admitted for management of pulmonary embolism, acute hypoxic respiratory failure, presence of pulmonary infiltrates, CHF with LVEF of 30-35%, DM, and AF on Apixaban. PMHX: All Active Problems (Updated 09/30/24 @ 16:56 by Carola Dowd APRN) Acute hypoxic respiratory failure (Acute) Contraindication to deep vein thrombosis (DVT) prophylaxis (Acute) Diabetes mellitus (Chronic) Pulmonary infiltrate (Acute) Pulmonary embolism (Chronic) Stroke-like symptoms (Acute) Aortic stenosis, moderate (Acute) History of mitral valve repair (Acute) Cardiomyopathy (Acute) Chronic blood loss anemia (Chronic) CHF (congestive heart failure) (Chronic) CAD (coronary artery disease), knik coronary artery (Chronic) Chronic atrial fibrillation (Chronic) Medical History Heart failure Type 2 diabetes mellitus Gastric ulcer with hemorrhage Insufficiency of tear film of both eyes Abnormal stool color Elevated PSA Malignant neoplasm of skin Nicotine dependence Malignant neoplasm of prostate HLD (hyperlipidemia) GERD (gastroesophageal reflux disease) Cervical radiculopathy Aortic stenosis Allergic rhinitis Surgical History History of tonsillectomy H/O heart surgery Social History/Home Situation: Patient lives with in a private home with 5 steps to enter with rails on B sides. Independent with all aspects of ADLs without an assistive device. Goes to the gym for exercises 3x/week. Equipment Owned/DME: None Subjective: Patient feels good. No report of chest pain not headache throughout session. Objective: General Observation: Resting in bed. Nurse Treva and Nurse Suarez prepping to adminitser medications with patient. Mental Status: Alert and oriented as to person, place, time, and purpose. Able to pay attention, focus, and respond appropriately. Pain: None reported Vital Signs: HR ranged from 80-120 bpm throughout the walk. After walk HR was 97 bpm. HR above 90% on RA throughout. ROM: Right Upper Extremity: Shoulder Flexion WFL. Shoulder abduction WFL. Elbow flexion WFL. Wrist flexion WFL. Functional opening and closing of hand WFL. Left Upper Extremity: Shoulder Flexion WFL. Shoulder abduction WFL. Elbow flexion WFL. Wrist flexion WFL. Functional opening and closing of hand WFL. Right Lower Extremity: Hip flexion WFL. Hip abduction WFL. Knee flexion WFL. Ankle dorsiflexion WFL. Ankle plantarflexion WFL. Left Lower Extremity: Hip flexion WFL. Hip abduction WFL. Knee flexion WFL. Ankle dorsiflexion WFL. Ankle plantarflexion WFL. Strength: Right Upper Extremity: Shoulder flexors 4/5. Shoulder abductors 4/5. Elbow flexors 5/5. Elbow extensors 5/5. Clinical Application Consultant strong. Left Upper Extremity: Shoulder flexors 4/5. Shoulder abductors 4/5. Elbow flexors 5/5. Elbow extensors 5/5. Clinical Application Consultant strong. Right Lower Extremity: Hip flexors 4/5. Hip abductors 4/5. Knee flexors 5/5. Knee extensors 5/5. Ankle dorsiflexors 4/5. Ankle plantarflexors 4/5. Left Lower Extremity: Hip flexors 4/5. Hip abductors 4/5. Knee flexors 5/5. Knee extensors 5/5. Ankle dorsiflexors 4/5. Ankle plantarflexors 4/5. Bed Mobility/Transfers: Rolling independent Supine to sit independent Sit to supine independent Sit to stand independent Stand to sit independent Bed to reclining chair supervision Reclining chair to bed supervision Gait: 350 feet with supervision and HR highest of 120 bpm with no symptoms of chest pain and shortness of breath. No assistive device. Helen unchanged. No LOB. No SOB. Patient just needed to rest in standing about in less than a minute twice because he needed to talk. Stairs: Up and down 2 x 4-inch steps and 3 x 6-inch steps without holding onto B rails. Supervision only. mIld shortness of breath that quickly dissipated with standing rest. Balance: Static Sitting: Normal Dynamic Sitting: Normal Static Standing: Good Dynamic Standing: Good Special Tests: Mobility Limitations Standardized Measure [employer] AM-PAC 6 clicks Basic Mobility Inpatient Short Form: Raw Score: CMS Score: []% deficit Informed Consent/Education: Patient was instructed in purpose of PT consult and plan of care. Agreeable to proceed with established PT POC to achieve personal goals. Assessment: Patient did not require any assistive device for this evaluation. Only needed supervision to assess heart rate response to mobility performance to ensure safety. [place] [address] low complexity based on the following: History: 84-year-old male with past medical history as indicated above Examination: Demonstrable impairment in strength, balance, and mobility level with underlying impairments and functional limitations as exhibited above Presentation: Stable Decision Makin low complexity Goals: Goals X1 week Patient will be assessed for appropriateness to upgrade to independent ambulation with no assisitive device for 1-2 more sessions before discharge. Plan of Care/Treatment Plan: 1-2 mores sessions to assess apporpriateness to upgrade to independent ambualtion in the hallway. DISCHARGE RECOMMENDATIONS: [X] Home with no services. Home when medically cleared by hospitalist. [] Home with services [specify] [] Home with outpatient PT [] [] SNF for continued rehabilitation [] [] [facility] [] [] SNF versus LTC based on ability to participate and progress [] TREATMENT CODE/TIME: 23673 x 20 minutes for 1 unit, 52090 x 17 minutes for 1 unit (9:48-10:35). Thank you for the opportunity to participate in the care of this patient. Laney Lopez PT, DPT, CLT [facility] [place], [place]
--- NOTE | 2024-10-01 09:50 | W.INDIABCONS ---
Date of service: 10/01/24 Time of Service: 09:50 Diabetes Inpatient Consult Reason for Visit: routine consult received - diabetes education/mgt DESCRIPTION/ASSESSMENT: Koko is 84 yo male admitted with acute resp failure, pulm embolism. Hx of DM2, CHF, CAD, chronic Afib, cariomyopathy. Takes 500mg metformin ER BID at home. Fasting glucose 143 this morning. Fingersticks ordered AC and HS. Moderate sliding scale aspart ordered for corrections. No current A1c data in chart. Weight stable x 6 months. Ordered for heart healthy, carb consistent diet with normal consistencies. Estimated energy needs: 1728kcals (REEx1.2AF), 90g protein (1.2g/kg). Suggested total carbohyrdrate goal: ~170 grams per day Visited with Koko and his . Koko usually checks his glucose at fasting and at bedtime. They both feel his fasting glucose of 146 is higher than usual at home. Denies frequent low's - only gets into the 80's sometimes. Goes to [employer] gym each week and is not liking to be in the hospital today as it disrupts his Friday habit of going. States his last A1c was in the 7's Koko is currently as goal and continues to work hard to maintain healthy diet and activity habits - his voices she is proud of what he's been doing. INTERVENTION: no aggressive nutrition intervention planned at this time. Patient and took my contact number to reach out when ready as they are interested in outpatient nutrition support. PLAN: will continue to monitor po intake, weight, glucose/labs, and desire/need for education Time Spent in Nutritional Counseling and Treatment: 15minutes
[2024-10-01] MEDS: Carvedilol 3.125 MG TAB PO (10:06)
[2024-10-01] MEDS: Atorvastatin 40 MG TAB 80 MG PO (10:06)
[2024-10-01] MEDS: Multivitamin TAB 1 TAB PO (10:06)
[2024-10-01] MEDS: Apixaban 2.5 MG TAB 5 MG PO (10:06)
--- NOTE | 2024-10-01 10:13 | PGE_ITS ---
Date of Service Date of service: 10/01/24 Time of Service: 10:13 Objective Last Vital Signs Temp 36.8 C 10/01/24 07:41 Pulse 85 10/01/24 07:41 Resp 18 10/01/24 07:41 BP 110/58 L 10/01/24 07:41 Pulse Ox 97 10/01/24 08:13 Laboratory Results - last 24 hr 09/30/24 09/30/24 09/30/24 10:57 10:57 11:23 WBC 5.47 RBC 3.91 L Hgb 12.2 L Hct 37.2 L MCV 95 MCH 31.2 MCHC 32.8 RDW 13.2 Plt Count 142 MPV 11.2 H Immature Gran % 0.2 Neutrophils % 59.8 Lymphocytes % 24.5 Monocytes % 11.9 Eosinophils % 2.9 Basophils % 0.7 Nucleated RBC % 0.0 Absolute Neutrophils 3.27 Absolute Lymphocytes 1.34 Absolute Monocytes 0.65 Absolute Eosinophils 0.16 Absolute Basophils 0.04 VBG Lactate Sodium 143 Potassium 4.3 Chloride 109 H Carbon Dioxide 27.8 Anion Gap 6.2 BUN 20 H Creatinine 1.0 Est GFR (CKD-EPI 2020) 75.14 Glucose 208 H Calcium 8.9 Magnesium 1.8 Total Bilirubin 0.80 AST 13 L ALT 25 Alkaline Phosphatase 102 Troponin I 12 Cancelled NT-Pro-B Natriuret Pep 1210 H Total Protein 7.4 Albumin 3.8 Urine Color Urine Clarity Urine pH Ur Specific [place] Urine Protein Urine Ketones Urine Blood Urine Nitrite Urine Bilirubin Urine Urobilinogen Ur Leukocyte Esterase Urine Glucose COVID-19 Source Nasopharynx SARS-CoV-2 (PCR) Negative Influenza Type A (PCR) Negative Influenza Type B (PCR) Negative RSV (PCR) Negative ABO/Rh O Positive Antibody Screen NEGATIVE 09/30/24 09/30/24 10/01/24 13:32 13:46 05:44 WBC 6.03 RBC 3.57 L Hgb 11.0 L Hct 33.7 L MCV 94 MCH 30.8 MCHC 32.6 RDW 13.3 Plt Count 121 L MPV 11.5 H Immature Gran % 0.2 Neutrophils % 62.1 Lymphocytes % 23.2 Monocytes % 11.8 Eosinophils % 2.2 Basophils % 0.5 Nucleated RBC % 0.0 Absolute Neutrophils 3.75 Absolute Lymphocytes 1.40 Absolute Monocytes 0.71 Absolute Eosinophils 0.13 Absolute Basophils 0.03 VBG Lactate 1.0 Sodium 146 H Potassium 4.1 Chloride 110 H Carbon Dioxide 26.4 Anion Gap 9.6 BUN 18 Creatinine 0.8 Est GFR (CKD-EPI 2020) 88.36 Glucose 143 H Calcium 8.6 Magnesium 1.9 Total Bilirubin AST ALT Alkaline Phosphatase Troponin I 8 NT-Pro-B Natriuret Pep 1128 H Total Protein Albumin Urine Color Yellow Urine Clarity Clear Urine pH 6.0 Ur Specific [place] 1.010 Urine Protein Negative Urine Ketones Negative Urine Blood Negative Urine Nitrite Negative Urine Bilirubin Negative Urine Urobilinogen 1.0 H Ur Leukocyte Esterase Negative Urine Glucose 250 H COVID-19 Source SARS-CoV-2 (PCR) Influenza Type A (PCR) Influenza Type B (PCR) RSV (PCR) ABO/Rh Antibody Screen
[2024-10-01] MEDS: Insulin Aspart 300 UNITS/3 ML PEN SC (12:18)
[2024-10-01 12:55] LABS: HCT 37.4 % (40.0-50.0); HGB 12.1 g/dL (13.5-17.5); MCHC 32.4 % (32.0-36.0); MCV 96 fL (80-95); MPV 10.8 fL (8.0-11.0); Platelet Count 136 10^3/uL (130-400); RDW 13.2 % (11.8-14.1); RDW-SD 46.9 fL; WBC 6.99 10^3/uL (4.4-10.8)
--- NOTE | 2024-10-01 13:06 | INITIAL_ITS ---
Date of service: 10/01/24 Time of Service: 11:45 Care Management Initial Assmt Initial Assessment Reason for Hospitalization: Pulmonary Embolism Functional Status/Living Situation Patient Presentation: Koko presented to the ER yesterday due to c/o increased fatique over the last 2 months, new shortness of breath while exercising, and a general increased fatigue. Koko was sitting on the edge of the bed, eating his lunch, when CM met with him today. His , Ursula, was also present. Koko and Ursula were both very pleasant. Koko asked if he could be discharged today, he feels well and has a big to do list to complete this weekend. Koko is independent at baseline. He works out at the gym 3 days a week and tries to eat healthy. Town of Residence: [place] Resides with: Spouse (Ursula) Significant Other/Family: Local (Urslua, daughter, Arcelia live locally. There is a son who lives out of area.) Natural Supports: Arcelia Vergara and her kids are biggest supports. 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 Medications Medication Management: No Issues/Barriers identified Advance Directives Advance Directives: Do you have an Advance Directive: Y 05/15/22 09:05 AD On File at [facility]: N 05/15/22 08:37 Date Asked 09/30/24 09/30/24 12:03 AD Date Reviewed COLST On File at [facility] COLST Date Scanned Code Status Resuscitation Status Full Code Insurance Coverage/Financial Issues Insurance: Medicare [place] Medicare supplement Financial Issues: denies Care Team Visit Care Team Role Provider Type Bobby Das Primary Care Provider NON-[facility] STAFF PHYSICIAN Marianela Avitia RDN, CDCES Other Providers MOTHER HELPER Jacquelyn Kennedy Other Providers MOTHER HELPER Randi Campbell Other Providers OTHER Oswald Zambrano RDN Other Providers MOTHER HELPER Alexander Jones MD Emergency Provider [facility] STAFF PHYSICIAN Ric Garces MD Admit Provider [facility] STAFF PHYSICIAN Attending Provider Discharge Potential Discharge Needs: PCP F/U Appt Anticipated Barriers to Discharge: None Identified Patient/Family Education Needs: Review discharge instructions, discuss Ask Me Three Transportation: Private vehicle Plan: Anticipate that Koko will be discharged home with no new services. He will f/u with his PCP and continue per his plan of care. He will transport home in a private vehicle with his . CM will continue to follow and update the plan as needed. PFSH All Active Problems (Updated 09/30/24 @ 16:56 by Carola Dowd APRN) Acute hypoxic respiratory failure (Acute) Contraindication to deep vein thrombosis (DVT) prophylaxis (Acute) Diabetes mellitus (Chronic) Pulmonary infiltrate (Acute) Pulmonary embolism (Chronic) Stroke-like symptoms (Acute) Aortic stenosis, moderate (Acute) History of mitral valve repair (Acute) Cardiomyopathy (Acute) Chronic blood loss anemia (Chronic) CHF (congestive heart failure) (Chronic) CAD (coronary artery disease), [place] coronary artery (Chronic) Chronic atrial fibrillation (Chronic) Medical History Heart failure Type 2 diabetes mellitus Gastric ulcer with hemorrhage Insufficiency of tear film of both eyes Abnormal stool color Elevated PSA Malignant neoplasm of skin Nicotine dependence Malignant neoplasm of prostate HLD (hyperlipidemia) GERD (gastroesophageal reflux disease) Cervical radiculopathy Aortic stenosis Allergic rhinitis Surgical History History of tonsillectomy H/O heart surgery Family History Father Cancer Mother Cardiac pacemaker Diabetes Brother Hyperlipidemia Social History Smoking/Tobacco Use Status: Former Tobacco Use Quit Date: 05/10/22 Tobacco: How many years used: 62 Smoking risk assessment performed?: Yes Alcohol Intake: former Drug use: Never Substance use type: does not use Housing: house current occupation: retired What is your relationship status?: Panel score (0-1 are the most socially isolated patients): 1 What type of physical activity do you participate in: walking Do you feel safe at home: Yes Do you feel safe in your relationship?: Yes Readmission Within the Past 30 Days Yes or No: No SDOH(Care Management) Screening Will the Patient Participate in the Screening?: Yes Do you worry about having a steady place to live?: no Problems where you live: no known problems In the past 12 months, have you had to go without electric, gas, oil or water in your home?: no Have you or anyone in your house had to go without enough food to eat?: no Has lack of transportation kept you from medical appointments or from doing things needed for daily living?: no Has anyone in your support network made you feel unsafe for any reason?: no
--- NOTE | 2024-10-01 14:37 | PT.INTREAT ---
PT Notes Visit Reasons: Pulmonary embolism, Atrial fibrillation Date: 10/01/2024 PRECAUTIONS: Fall. Standard. Activity as tolerated. SUBJECTIVE: Pt sitting on the EOB, requested to go to the toilet before participating with gait training VITALS: Pre-Treatment: 110/65mmhg, 76pr, 91%sa02 Post-Treatment: ?109/51mmhg, 59-84pr(range), 93%sao2 Therapeutic Activities 22229 15mins: instruction in dynamic activities with one on one patient contact by the provider to improve functional performance?as follows:? Gait training around the [place] 300' supervision with vitals taken before and after activity. pt pulse ranged from 59-89 after activity. all other vitals WNL. Plan: continue to monitor pt vitals for 2 or more sessions. TREATMENT CODE/TIME: [id number] 15mins(2:15-2:30pm)
--- NOTE | 2024-10-01 15:51 | W.PM.DS.N ---
Date of service: 10/01/24 Time of Service: 15:51 DS: Diagnosis Discharge Diagnosis (1) Pulmonary embolism: Status: Chronic (2) Acute hypoxic respiratory failure: Status: Acute (3) Pulmonary infiltrate: Status: Acute (4) CHF (congestive heart failure): Status: Chronic (5) Diabetes mellitus: Status: Chronic (6) A-fib: Status: Inactive (7) Contraindication to deep vein thrombosis (DVT) prophylaxis: Status: Acute Discharge Plan Disposition Patient Disposition: Home Condition: Improving Discharge Details Reason For Visit: Pulmonary embolism, Atrial fibrillation Admit Date/Time: 09/30/24 15:52 Admit Provider: Ric Garces Attending Provider: Ric Garces Primary Care Provider: ThiagoShoals Hospital Course: This 84-year-old male patient with a past medical history of chronic atrial fibrillation on apixaban reduced dose due to history of GI bleed, CHF w LVEF 30-35% in June 2023, CVA on 11/06/2023, diabetes mellitus type 2, presented to the ED at [facility] for evaluation of increased fatigue over the past 2 months, sleepiness, dyspnea during his regular exercise sessions on Friday and Friday, and exercise intolerance. On arrival to the ED the patient was hypoxic and required 3 L of oxygen via nasal cannula. SBP was between 110's and low 90s. Workup in the ED was positive for pulmonary emboli as per CTA. Blood work was unremarkable. [facility] cardiology was consulted with recommendations for an increased dose of Eliquis to 5 mg twice a day. The patient admitted to the medical surgical floor with telemetry for evaluation and management of pulmonary embolism, acute hypoxic respiratory failure. The patient denied fevers, chest pain, dizziness, cough, nausea, vomiting, melena, hematochezia, or dysuria. Today, the patient no longer required oxygen supplementation. H&H remained stable without any signs of acute bleeding. Physical therapy was completed with recommendation for home discharge without additional physical therapy services. The patient showed no further signs of dyspnea or air hunger. The patient remained in a control atrial fibrillation rhythm with a heart rate in the 80s. The echocardiogram was completed with the following results: Conclusion Normal left ventricular wall thickness and chamber size. Ejection fraction is 35%. There is global hypokinesis Normal right ventricular size. Right ventricle is mildly hypocontractile Both atria are moderately enlarged Aortic valve is calcified and trileaflet. There is severe aortic stenosis. Mean gradient is 23 mmHg. Calculated aortic valve area 0.7 cm??. There is no aortic regurgitation Prior mitral annuloplasty. Mild mitral stenosis and regurgitation Ascending aorta measures 3.9 cm Estimated right ventricular systolic pressure is 35 mmHg Compared to an echocardiogram at [facility] in October 2023, LV function is a bit worse. Degree of aortic stenosis has progressed The patient will be discharged home. The patient is to reach out to his primary care provider for pain management with signs and symptoms of bleeding. Patient mentioned [facility] GI referral initiated by PCP; the patient should reach out to your primary care office for update on the process. This is still needed in the setting of increased dose of Eliquis now. The patient will need to follow-up with his primary care practitioner within 7 days of discharge. As for IV infusion of iron due for Friday, recommendation made to patient to consult with his primary care practitioner. The patient will have to continue Eliquis 5 mg orally twice a day. The patient can resume his metformin on 10/02/2024 in the afternoon. Other chronic medical condition were managed as per home pharmacological regimen. [facility] cardiology follow-up is recommended and should be discussed with primary care practitioner. Patient should seek clearance from his primary care practitioner before resuming his exercise regimen but is encouraged to resume moderate physical activity without exerting himself. Discussed with Dr. Garces. Home Meds and New Rx's Prescriptions: New Eliquis 5 mg tablet 5 mg PO BID Qty: 60 0RF melatonin 3 mg Tablet 3 mg PO HS PRNQty: 30 0RF polyethylene glycol 3350 17 gram Powder In Packet 17 g PO DAILY PRN PRN (Reason: Constipation) Qty: 30 0RF Continued carvedilol 3.125 mg tablet 3.125 mg PO BID Rx Instructions: must administer with a meal/food tamsulosin 0.4 mg capsule 1 cap PO 1XD Patient Comments: TAKE ONE CAPSULE BY MOUTH AT BEDTIME multivitamin Tablet 1 tab PO DAILY calcium citrate 200 mg (950 mg) Tablet 200 mg PO DAILY carboxymethylcellulose sodium [Refresh Plus] 0.5 % Dropperette 3 drp ophthalmic (eye) TID PRN (Reason: Eye Irritation) fluticasone propionate 50 mcg/actuation spray,suspension 1 spray intranasal BID PRN PRNQty: 0 0RF Rx Instructions: administer into each nostril atorvastatin 80 mg tablet 80 mg PO DAILY Patient Comments: TAKE ONE TABLET BY MOUTH EVERY DAY +STOP ROSUVASTATIN+ metformin 500 mg tablet extended release 24 hr 500 mg PO BID Patient Comments: TAKE TWO TABLETS BY MOUTH TWICE A DAY Held sildenafil 100 mg Tablet 100 mg PO PRN PRN Hold Instructions: Resume on 10/08/24. Resume as per PCP Discontinued Eliquis 2.5 mg tablet 2.5 mg PO BID No Action metformin 500 mg tablet 500 mg PO BID Discharge Instructions Instructions: Atrial fibrillation, Pulmonary embolism - Discharge instructions Stand Alone Forms: Nursing Discharge Form Referrals: GASTROENTEROLOGY,[facility] [OTHER] - (Ongoing referral due positive guaiac on 2.5 mg of Eliquis as per PCP, now acute PE diagnosis With increase dose of Eliquis to 5 mg twice daily as per [facility] cardiology on 09/30/2024. Referral still needed. Please call 10-14 days to set up an appointment) Bobby Das [Primary Care Provider] - 10/11/24 1:20 pm Activity:: Activity as Tolerated Equipment/Supplies:: No Equipment Needed Diet:: heart healthy diabetic Discharge Orders Discharge Orders: Discharge Order (Routine); Ordered 10/01/24 Ordered By: Carola Dowd DS: Summary Time Spent with Patient providing and/or coordinating discharge services: Greater than 30 minutes Status at Discharge Functional status at discharge: independent ambulation Overall status at discharge: patient is progressing back to baseline Mental Status: mental status grossly normal Speech and Movement: speech and movement normal Mood: congruent mood Affect: normal affect Quality:SDOH Health Related Social Needs: No Data to Display Exam Narrative Exam Narrative: Constitutional The patient on stretcher, comfortable without acute distress HENMT: Facial structures with normal appearance Eyes: Well aligned, intact ROM Neuro:alert and oriented X4. Non- focal Resp: Unlabored breathing, clear left lung and right upper, diminished right lower lung field Cardio: Atrial fibrillation on tele HR 82-88,irregular rhythm, S1, S2, no murmur,positive pulses to all 4 extremities GI: Abdomen is not distended, soft and non tender, bowel sounds are present Back/spine/Pelvis: No back tenderness, normal alignment Integumentary: No skin lesions or rash Extremities: strength 5/5 to bilateral lower and upper extremities Psych: RASS 0, congruent mood and normal to irritable affect. Psych Mental Status: mental status grossly normal Speech and Movement: speech and movement normal Mood: congruent mood Affect: normal affect DS: Data Vitals/I&O Vitals and I&O: Vital Signs Temperature 36.4 C L 10/01/24 15:30 Temperature Source Tympanic 10/01/24 15:30 Pulse 78 10/01/24 15:30 Pulse Rhythm Irregular 09/30/24 17:04 Pulse 84 09/30/24 18:10 Respiratory Rate 16 10/01/24 15:30 Respiratory Effort Normal 09/30/24 17:04 Respiratory Depth Normal 09/30/24 17:04 Respiratory Pattern Normal 09/30/24 11:50 Blood Pressure 92/61 L 10/01/24 15:30 Blood Pressure Mean 73 09/30/24 16:42 Blood Pressure Position Supine 09/30/24 10:52 Pulse Oximetry 94 10/01/24 15:30 Oxygen Delivery Method Room Air 10/01/24 15:30 Oxygen Flow Rate 0 10/01/24 15:30 Pain Level 0 10/01/24 15:30 Comment RN notified 10/01/24 15:30 Comment 250 bolus ordered 09/30/24 12:11 Intake & Output 09/30/24 10/01/24 10/01/24 23:59 11:59 23:59 Intake Total 300 / 300 260 / 260 Output Total 875 / 875 525 / 875 350 / 875 Balance -575 / -575 -265 / -615 -350 / -615 Weight 75.189 kg Intake: IV 300 / 300 260 / 260 Output: Urine 875 / 875 525 / 875 350 / 875 Other: Urine Color Yellow Straw Yellow Urine Appearance Clear Clear Urine Odor None Normal # Voids 1 Data Completed and Pending Labs on day of discharge: Labs from last 24 hours 10/01/24 10/01/24 12:47 05:44 WBC 6.99 6.03 RBC 3.90 L 3.57 L Hgb 12.1 L 11.0 L Hct 37.4 L 33.7 L MCV 96 H 94 MCH 31.0 30.8 MCHC 32.4 32.6 RDW 13.2 13.3 Plt Count 136 121 L MPV 10.8 11.5 H Immature Gran % 0.2 Neutrophils % 62.1 Lymphocytes % 23.2 Monocytes % 11.8 Eosinophils % 2.2 Basophils % 0.5 Nucleated RBC % 0.0 Absolute Neutrophils 3.75 Absolute Lymphocytes 1.40 Absolute Monocytes 0.71 Absolute Eosinophils 0.13 Absolute Basophils 0.03 Sodium 146 H Potassium 4.1 Chloride 110 H Carbon Dioxide 26.4 Anion Gap 9.6 BUN 18 Creatinine 0.8 Est GFR (CKD-EPI 2020) 88.36 Glucose 143 H Calcium 8.6 Magnesium 1.9 NT-Pro-B Natriuret Pep 1128 H 09/30/24 13:52 Blood Blood Culture - Pending Preliminary micro results at discharge 09/30/24 13:32 Blood Culture - Preliminary Blood NO GROWTH 24 HOURS 09/30/24 13:52 Blood Culture - Pending Blood PFSH All Active Problems (Updated 09/30/24 @ 16:56 by Carola Dowd APRN) Acute hypoxic respiratory failure (Acute) Contraindication to deep vein thrombosis (DVT) prophylaxis (Acute) Diabetes mellitus (Chronic) Pulmonary infiltrate (Acute) Pulmonary embolism (Chronic) Stroke-like symptoms (Acute) Aortic stenosis, moderate (Acute) History of mitral valve repair (Acute) Cardiomyopathy (Acute) Chronic blood loss anemia (Chronic) CHF (congestive heart failure) (Chronic) CAD (coronary artery disease), [place] coronary artery (Chronic) Chronic atrial fibrillation (Chronic) Medical History Heart failure Type 2 diabetes mellitus Gastric ulcer with hemorrhage Insufficiency of tear film of both eyes Abnormal stool color Elevated PSA Malignant neoplasm of skin Nicotine dependence Malignant neoplasm of prostate HLD (hyperlipidemia) GERD (gastroesophageal reflux disease) Cervical radiculopathy Aortic stenosis Allergic rhinitis Surgical History History of tonsillectomy H/O heart surgery Family History Father Cancer Mother Cardiac pacemaker Diabetes Brother Hyperlipidemia Social History Smoking/Tobacco Use Status: Former Tobacco Use Quit Date: 05/10/22 Tobacco: How many years used: 62 Smoking risk assessment performed?: Yes Alcohol Intake: former Drug use: Never Substance use type: does not use Housing: house current occupation: retired What is your relationship status?: Panel score (0-1 are the most socially isolated patients): 1 What type of physical activity do you participate in: walking Do you feel safe at home: Yes Do you feel safe in your relationship?: Yes Time Spent with Patient Time Spent with Patient: 70-84 minutes4 Time was spent: preparing to see the patient(eg.review tests), obtaining and/or reviewing separately otained hiistory, ordering medications,tests, procedures, referring, communicating with other health child care center administrator, indepentently interpreting results, counseling the patient and care coordination
--- NOTE | 2024-10-01 15:58 | PDOC.HHF2F_ITS ---
Home Health Referral Home Health Orders Clinical synopsis of why skilled professionals are needed: This 84-year-old male patient with a past medical history of chronic atrial fibrillation on apixaban reduced dose due to history of GI bleed, CHF, CVA on 11/06/2023, diabetes mellitus type 2, presented to the ED at [facility] for evaluation of increased fatigue over the past 2 months, sleepiness, dyspnea during his regular exercise sessions on Friday and Friday, and exercise intolerance. On arrival to the ED the patient was hypoxic and required 3 L of oxygen via nasal cannula. SBP was between 110's and low 90s. Workup in the ED was positive for pulmonary emboli as per CTA. Blood work was unremarkable. [facility] cardiology was consulted with recommendations for an increased dose of Eliquis to 5 mg twice a day. The patient admitted to the medical surgical floor with telemetry for evaluation and management of pulmonary embolism, acute hypoxic respiratory failure. The patient denied fevers, chest pain, dizziness, cough, nausea, vomiting, melena, hematochezia, or dysuria. Today, the patient no longer required oxygen supplementation. H&H remained stable without any signs of acute bleeding. Physical therapy was completed with recommendation for home discharge without additional physical therapy services. The patient showed no further signs of dyspnea or air hunger. The patient remained in a control atrial fibrillation rhythm with a heart rate in the 80s. The echocardiogram was completed with the following results: Conclusion Normal left ventricular wall thickness and chamber size. Ejection fraction is 35%. There is global hypokinesis Normal right ventricular size. Right ventricle is mildly hypocontractile Both atria are moderately enlarged Aortic valve is calcified and trileaflet. There is severe aortic stenosis. Mean gradient is 23 mmHg. Calculated aortic valve area 0.7 cm??. There is no aortic regurgitation Prior mitral annuloplasty. Mild mitral stenosis and regurgitation Ascending aorta measures 3.9 cm Estimated right ventricular systolic pressure is 35 mmHg Compared to an echocardiogram at [facility] in October 2023, LV function is a bit worse. Degree of aortic stenosis has progressed The patient will be discharged home with home health nursing to monitor for signs and symptoms of exacerbation and or complications, and medical compliance to treatment. Patient will need to follow-up with his primary care practitioner within 7 days of discharge. Patient mentioned [facility] GI referral initiated by PCP; this is still needed and ongoing. As for IV infusion of iron due for Friday, recommendation made to patient to consult with his primary care practitioner. The patient will have to continue Eliquis 5 mg orally twice a day. The patient can resume his metformin on 10/02/2024 in the afternoon. Other chronic medical condition were managed as per home pharmacological regimen. [facility] cardiology follow-up is recommended and should be discussed with primary care practitioner. Patient should seek clearance from his primary care practitioner before resuming his exercise regimen but is encouraged to resume moderate physical activity without exerting himself. Registered Nurse: Check all that apply Instruct on new or changed medication(s)/assess compliance: Ordered Assess for exacerbation of medical condition, instruct patient/caregivers on signs and symptoms to report for early detection: Ordered Home Bound Status Describe why leaving home would require a considerable and taxing effort: Requires frequent rest periods and Safety Concerns: describe (On new dose of Eliquis, no further O2 need but no extreme exertion recommended) Encounter Date and Reason: I certify that a FTF encounter for this patient was performed on October 01, 2024 and that such encounter was related to the primary reason the patient requires home health services. The encounter was conducted in the following manner: * By me as the certifying physician, GROUP INSURANCE SPECIALIST, PA or * By an inpatient physician, GROUP INSURANCE SPECIALIST or PA during an inpatient stay who communicated findings to me, Certification And Authentication I certify that I composed the above information based on my clinical judgment relating to this patient's medical condition and, if applicable, clinical findings communicated to me by the NPP or inpatient physician who performed the FTF encounter. Name of Provider that will be monitoring home health services: Bobby Das
--- NOTE | 2024-10-01 16:20 | PDOC.CMDIS ---
Date of service: 10/01/24 Time of Service: 16:20 LACE Index Scoring Tool Questions: Length of Stay (in days): 1 Was the patient admitted via the E.D.?: Yes Comorbidities: Diabetes w/o Complication, Congestive Heart Failure and Any Tumor E.D. Visits: 1 Answers: Total Score: 10 Risk of Readmission: High Risk Care Management Discharge Plan Reason for Hospitalization: PE Discharge Plan: Koko was discharged home this afternoon with no new services. He will f/u with his PCP and continue per his plan of care. Koko will transport home with his . Patient/Family Education Needs: Review of discharge instructions, activity, limitations, f/u plan and ask me 3 SDOH Health Related Social Needs: No Data to Display
== END 2024-10-01 16:16 | disposition home or self-care (01) | DRG 175 ==
LOC: ER 15:45 → MS 16:58
PROVIDERS: Family Medicine; Nurse Practitioner Acute Care; Admitting Provider Family Medicine; Emergency Provider Student in an Organized Health Care Education/Training Program; PCP Family Medicine; Visit Provider Family Medicine
DX: I26.99 Other pulmonary embolism without acute cor pulmonale (principal); J96.01 Acute respiratory failure with hypoxia; I48.20 Chronic atrial fibrillation, unspecified; R91.8 Other nonspecific abnormal finding of lung field; E11.9 Type 2 diabetes mellitus without complications; I08.0 Rheumatic disorders of both mitral and aortic valves; I50.9 Heart failure, unspecified; Z79.01 Long term (current) use of anticoagulants; Z86.73 Personal history of transient ischemic attack (TIA), and cerebral infarction without residual deficits; D50.0 Iron deficiency anemia secondary to blood loss (chronic); E78.5 Hyperlipidemia, unspecified; K21.9 Gastro-esophageal reflux disease without esophagitis; M54.12 Radiculopathy, cervical region; Z85.828 Personal history of other malignant neoplasm of skin; Z85.46 Personal history of malignant neoplasm of prostate; Z87.891 Personal history of nicotine dependence; Z87.11 Personal history of peptic ulcer disease; Z79.84 Long term (current) use of oral hypoglycemic drugs
CPT/HCPCS: 00123; 36415; 71275; 80048; 80053; 85027; 86850; 86900; 86901; 87040; 87637; 93005; 93306; 96361; 96365; 97530; 99291; 71045; 81003; 82270; 83605; 83735; 83880; 84484; 85025; 93010; 99223; 99239; J0696; J1815; J3490

== ENCOUNTER → 2024-10-28 13:07 | Outpatient (BNVA) | payer MEDICARE, SELFPAY | PROVIDERS: PCP Family Medicine; Visit Provider Internal Medicine Cardiovascular Disease | DX: I25.5 Ischemic cardiomyopathy (principal); I25.10 Atherosclerotic heart disease of native coronary artery without angina pectoris | CPT/HCPCS: 99214 ==

== ENCOUNTER 2024-11-16 11:07 | Emergency (ER) | payer MEDICARE, SELFPAY ==
[2024-11-16] VITALS (58 sets, daily range): BP systolic 93–131; BP diastolic 27–63; PULSE 49–106; RESP 6–27; TEMP 36.9; O2SAT 88–99
--- NOTE | 2024-11-16 11:00 | RT.EKG_ITS ---
APPROVED REPORT Exam: Resting ECG Reason for Exam: chest pain/SOB Patient Location: E HR:86 bpm ECG Measurements Heart Rate 86 AXIS DE [id number] P [id number] QRSd 133 QRS -52 QT 406 T 117 QTc 487 Conclusion Atrial fibrillation...V-rate 71- 90, irreg A-activity Ventricular bigeminy...bigeminy string>4 w/ V complexes Left bundle branch block...QRSd>120, broad/notched R No STEMI
--- NOTE | 2024-11-16 11:10 | W.ED.GENAD ---
Discharge Plan Disposition Patient Disposition: Transfer-Acute Inpatient Care Specific Acute Inpt Facility: [facility] Discharge Details Clinical Impression: Severe aortic stenosis Primary Care Provider: Bobby Das ED Provider: Bobby Carter Home Meds and New Rx's Prescriptions: No Action carvedilol 3.125 mg tablet 3.125 mg PO BID Rx Instructions: must administer with a meal/food metformin 500 mg tablet 500 mg PO BID tamsulosin 0.4 mg capsule 1 cap PO 1XD Patient Comments: TAKE ONE CAPSULE BY MOUTH AT BEDTIME metoprolol tartrate 25 mg tablet 25 mg PO DAILY Patient Comments: TAKE ONE-HALF TABLET BY MOUTH TWICE A DAY multivitamin Tablet 1 tab PO DAILY calcium citrate 200 mg (950 mg) Tablet 200 mg PO DAILY carboxymethylcellulose sodium [Refresh Plus] 0.5 % Dropperette 3 drp ophthalmic (eye) TID PRN (Reason: Eye Irritation) sildenafil 100 mg Tablet 100 mg PO PRN PRN fluticasone propionate 50 mcg/actuation spray,suspension 1 spray intranasal BID PRN PRNQty: 0 0RF Rx Instructions: administer into each nostril atorvastatin 80 mg tablet 80 mg PO DAILY Patient Comments: TAKE ONE TABLET BY MOUTH EVERY DAY +STOP ROSUVASTATIN+ Eliquis 5 mg tablet 5 mg PO BID Qty: 60 0RF melatonin 3 mg Tablet 3 mg PO HS PRNQty: 30 0RF polyethylene glycol 3350 17 gram Powder In Packet 17 g PO DAILY PRN PRN (Reason: Constipation) Qty: 30 0RF HPI General Date/Time Provider Initiated Documentation: 11/16/24 11:10. HPI Narrative: MDM This is an elderly normothermic and not hypotensive 84-year-old male with severe and exertional chest pain concerning for the possibility of unstable angina with worsening shortness of breath and lower extremity edema and B-lines concerning for the possibility of early heart failure. Patient is not symptomatic nor hypotensive so I am not concerned for symptomatic acute pulmonary edema. Furthermore chest x-ray is not volume overloaded. I spoke to Ama José from cards at [facility]. On behalf of accepting Dr. Kulkarni patient was initially listed for tomorrow. Updated the patient and his on this plan. He took his apixaban this morning and will be appropriate to initiate heparin bolus and drip to treat unstable angina at 9 PM this evening. He subsequently was accepted by [facility] this evening I signed transfer paperwork to have him transferred via EMS. His labs were reassuring no SYED. Mildly elevated BUN. His troponin was not consistent with ACS. Admitted advised against clopidogrel. No respiratory distress to suggest benefit from BiPAP. 3:20 PM Patient had episode of hypotension with automatic blood pressure 76/41. I held his furosemide. Will obtain a manual pressure. Manual pressure was reassuring. Chronic conditions affecting the care of the patient: Severe History obtained from an outside historian: N/A External record review: [facility] EMR [Diagnostic interpretations performed by me: Per my independent interpretation chest x-ray shows: no signs of volume overload Per my independent interpretation EKG shows: Rate controlled atrial fibrillation at a rate of 86 with left bundle branch block. Not meeting [place] nor modified Ray criteria for ischemia. Poor R wave progression. Frequent PVCs. Appears similar to prior dated last year. ]Medications: Aspirin Social determinants of health affecting disposition: N/A Management discussed with: Cardiology hospitalist Treatment/interventions considered: N/A Response to therapies provided: N/A HPI 84-year-old male who presents for evaluation of chest pain. He is accompanied by his . He has been experiencing progressive chest pain since mid-September, initially intermittent but now constant. The pain, described as a hunger-like sensation, is localized under his breast and does not radiate. He reports no associated syncope or cough. He also reports headaches and dizziness. He experiences shortness of breath on exertion but is not on home oxygen therapy. His oxygen saturation levels have previously dropped to 89, prompting the initiation of 1 L oxygen therapy. He reports no change in his respiratory status at rest. He has noticed edema in his lower extremities, particularly evident when he removes his socks. He sleeps on his left side without the aid of pillows or a recliner. Over the past 6 months, he has gained approximately 5 pounds, increasing from a stable weight of 165 to 169. He reports no fevers. Despite being an active individual, he expresses uncertainty about his ability to climb ladders. He has a history of aortic stenosis and is scheduled for a CT scan at [facility] to assess his suitability for valve replacement surgery. His reports that Dr. Dasilva's office recommended an earlier appointment at our facility as they are unable to accommodate him until January. The pain is not exacerbated by physical activity, and he reports no relief measures. Supplemental Information He suffered a stroke last year. REVIEW OF SYSTEMS Negative for syncope, cough, or fever. Positive for shortness of breath and lower extremity edema. Exam General: Well-appearing in no acute distress speaking in complete sentences. Head: Normocephalic, atraumatic. Eye: Extraocular eye movements intact. No conjunctival injection. No scleral icterus. Ear, nose, mouth, throat: Grossly normal inspection. Normal voice, handling secretions normally. Neck: Trachea midline. Cardiovascular: Well-perfused distal extremities. Irregularly irregular rhythm Respiratory: Nonlabored respiration. Crackles bilateral bases. Gastrointestinal: Nondistended abdomen. Musculoskeletal: Mild 1+ bilateral lower extremity nonpitting edema. Moving all 4 extremities spontaneously. Skin: Normal for age and race, grossly normal temperature and turgor. No acute rash. Neurologic: Alert and appropriate, no apparent acute deficits. GCS 15. Psychiatric: Mood and manner are appropriate. Grooming and personal hygiene are appropriate. Related Data Home Medications ?Medication ?Instructions ?Recorded ?Confirmed tamsulosin 0.4 mg capsule 1 cap PO 1XD 05/15/22 11/16/24 calcium citrate 200 mg PO DAILY 06/23/22 11/16/24 carboxymethylcellulose sodium 0.5 3 drp ophthalmic (eye) TID PRN Eye 06/23/22 11/16/24 % eye drops in a dropperette Irritation (Refresh Plus) multivitamin 1 tab PO DAILY 06/23/22 11/16/24 sildenafil 100 mg tablet 100 mg PO PRN PRN 08/15/22 10/28/24 fluticasone propionate 50 1 spray intranasal BID PRN PRN #0 08/17/22 10/28/24 mcg/actuation nasal grams spray,suspension carvedilol 3.125 mg tablet 3.125 mg PO BID 10/06/23 11/16/24 metformin 500 mg tablet 500 mg PO BID 10/06/23 11/16/24 atorvastatin 80 mg tablet 80 mg PO DAILY 09/30/24 11/16/24 apixaban 5 mg tablet (Eliquis) 5 mg PO BID #60 tabs 10/01/24 11/16/24 melatonin 3 mg tablet 3 mg PO HS PRN #30 tabs 10/01/24 11/16/24 polyethylene glycol 3350 17 gram 17 g PO DAILY PRN PRN Constipation 10/01/24 11/16/24 oral powder packet #30 ea metoprolol tartrate 25 mg tablet 25 mg PO DAILY 11/16/24 11/16/24 Previous Rx's ?Medication ?Instructions ?Recorded fluticasone propionate 50 1 spray intranasal BID PRN PRN #0 08/17/22 mcg/actuation nasal grams spray,suspension apixaban 5 mg tablet (Eliquis) 5 mg PO BID #60 tabs 10/01/24 melatonin 3 mg tablet 3 mg PO HS PRN #30 tabs 10/01/24 polyethylene glycol 3350 17 gram 17 g PO DAILY PRN PRN Constipation 10/01/24 oral powder packet #30 ea Allergies Allergy/AdvReac Type Severity Reaction Status Date / Time aspirin AdvReac Mild GI Bleeding Verified 11/16/24 11:23 General MÓNICA: 2 Medical Decision Making Quality:SDOH Health Related Social Needs: No Data to Display Critical Care Time Critical Care Time Critical Care Time: Yes Total Critical Care Time: 45 Attestation: Bedside assessment and discussion with customer sales consultant PFSH All Active Problems (Updated 11/16/24 @ 16:16 by Carola Dowd APRN) Unstable angina (Acute) ACS (acute coronary syndrome) (Acute) Severe aortic stenosis (Acute) Nonrheumatic aortic (valve) stenosis (Acute) Diabetes mellitus (Chronic) Pulmonary infiltrate (Acute) Pulmonary embolism (Chronic) Stroke-like symptoms (Acute) History of mitral valve repair (Acute) Cardiomyopathy (Acute) Chronic blood loss anemia (Chronic) CHF (congestive heart failure) (Chronic) CAD (coronary artery disease), [place] coronary artery (Chronic) Chronic atrial fibrillation (Chronic) Medical History (Updated 11/16/24 @ 16:16 by Carola Dowd APRN) Heart failure Type 2 diabetes mellitus Gastric ulcer with hemorrhage Insufficiency of tear film of both eyes Abnormal stool color Elevated PSA Malignant neoplasm of skin Nicotine dependence Malignant neoplasm of prostate HLD (hyperlipidemia) GERD (gastroesophageal reflux disease) Cervical radiculopathy Aortic stenosis Allergic rhinitis Surgical History History of tonsillectomy H/O heart surgery Family History Father Cancer Mother Cardiac pacemaker Diabetes Brother Hyperlipidemia Social History Smoking/Tobacco Use Status: Former Tobacco Use Quit Date: 05/10/22 Tobacco: How many years used: 62 Smoking risk assessment performed?: Yes Alcohol Intake: former Drug use: Never Substance use type: does not use Housing: house current occupation: retired What is your relationship status?: Panel score (0-1 are the most socially isolated patients): 1 What type of physical activity do you participate in: walking Do you feel safe at home: Yes Do you feel safe in your relationship?: Yes POCUS Exam (ED) Limited Cardiac Exam DATE OF EXAM: 11/16/24 TIME OF EXAM: 12:00 PROVIDER THAT PERFORMED THE STUDY: Bobby Carter IS THIS A REPEAT EXAM DURING THIS ENCOUNTER: no REASON FOR EXAM: Dyspnea VISUALIZED STRUCTURES: Four Chambers, Left ventricle and LVOT VIEW OBTAINED: Apical 4-Chamber, Parasternal long-axis and Subxiphoid PERTINENT FINDINGS/IMPRESSION: No pericardial effusion and No RV dilation DIFFERENTIAL DIAGNOSES: Aortic outflow track less than 4 cm, poor squeeze, RV less than LV, no significant pericardial effusion. Bilateral b-lines. Exam complete
--- NOTE | 2024-11-16 11:30 | DI.RAD_ITS ---
Exam(s) XR PORTABLE CHEST AP EXAM: XR PORTABLE CHEST AP CLINICAL HISTORY: Chest pain TECHNIQUE: 2D digital imaging was performed of the chest. One image was obtained. An AP view was ob tained. COMPARISON: CR XR PORTABLE CHEST AP from 09/30/2024 FINDINGS: MEDIASTINUM: Normal. HEART: Normal. PULMONARY VASCULATURE: Normal. LUNGS: There are stable interstitial markings in the lungs. No focal consolidating infiltrates are s een. PLEURAL SPACE: No pleural effusion or pneumothorax. BONE:Within normal limits for the patient's age. Sternotomy wires are in place. OTHER FINDINGS:Normal. IMPRESSION: No acute pulmonary findings. DATA REPOSITORY: RADIATION DOSE DELIVERED:
[2024-11-16] MEDS: Aspirin 81 MG CHEW 324 MG CH (11:50)
[2024-11-16 12:01] LABS: Abs Immature Grans 0.02 10^3/uL (0.0-0.06); Absolute Basophil Count 0.04 10^3/uL (0.0-0.2); Absolute Eosinophil Count 0.16 10^3/uL (0.0-0.7); Absolute Lymphocyte Count 1.21 10^3/uL (1.2-3.4); Absolute Monocyte Count 0.42 10^3/uL (0.1-0.8); Absolute Neutrophil Count 3.36 10^3/uL (1.2-6.7); Basophils % 0.8 %; Eosinophils % 3.1 %; HCT 38.8 % (40.0-50.0); HGB 12.8 g/dL (13.5-17.5); Immature Grans % 0.4 %; Lymphocytes % 23.2 %; MCH 31.4 pg (27.0-33.0); MCV 95 fL (80-95); MPV 11.3 fL (8.0-11.0); Monocytes % 8.1 %; Neutrophils % 64.4 %; Platelet Count 148 10^3/uL (130-400); RBC 4.07 10^6/uL (4.36-5.78); RDW 13.5 % (11.8-14.1); RDW-SD 47.8 fL; WBC 5.21 10^3/uL (4.4-10.8)
[2024-11-16 12:31] LABS: ALT 30 U/L (16-63); AST 20 U/L (15-37); Albumin 3.9 g/dL (3.4-5.0); Alkaline Phosphatase 108 U/L (46-116); Anion Gap 5.8 mmol/L (3-11); BUN 23 mg/dL (7-18); Bilirubin, Total 0.71 mg/dL (0.2-1.0); CO2 28.2 mmol/L (21.0-32.0); CREATININE 0.9 mg/dL (0.70-1.30); Calcium 9.6 mg/dL (8.5-10.1); Chloride 109 mmol/L (98-107); Estimated GFR 85.27 (mL/min/1.73m2); Glucose 209 mg/dL (74-106); NT-proBNP 1333 pg/mL (<300); Potassium 4.1 mmol/L (3.5-5.1); Sodium 143 mmol/L (136-145); Total Protein 7.3 g/dL (6.4-8.2); Troponin I 9 ng/L (<or=76)
[2024-11-16 13:18] LABS: Troponin I 8 ng/L (<or=76)
--- NOTE | 2024-11-16 15:24 | W.PM.HP.N ---
Date of service: 11/16/24 Time of Service: 15:24 Assessment and Plan Assessment and plan (1) Severe aortic stenosis: Status: Acute (2) Nonrheumatic aortic (valve) stenosis: Status: Acute (3) CAD (coronary artery disease), [place] coronary artery: Status: Chronic (4) Chronic atrial fibrillation: Status: Chronic (5) ACS (acute coronary syndrome): Status: Acute (6) Unstable angina: Status: Acute Review of Systems All systems reviewed & are unremarkable except as noted in HPI and below PFSH All Active Problems (Updated 11/16/24 @ 16:16 by Carola Dowd APRN) Unstable angina (Acute) ACS (acute coronary syndrome) (Acute) Severe aortic stenosis (Acute) Nonrheumatic aortic (valve) stenosis (Acute) Diabetes mellitus (Chronic) Pulmonary infiltrate (Acute) Pulmonary embolism (Chronic) Stroke-like symptoms (Acute) History of mitral valve repair (Acute) Cardiomyopathy (Acute) Chronic blood loss anemia (Chronic) CHF (congestive heart failure) (Chronic) CAD (coronary artery disease), [place] coronary artery (Chronic) Chronic atrial fibrillation (Chronic) Medical History (Updated 11/16/24 @ 16:16 by Carola Dowd APRN) Heart failure Type 2 diabetes mellitus Gastric ulcer with hemorrhage Insufficiency of tear film of both eyes Abnormal stool color Elevated PSA Malignant neoplasm of skin Nicotine dependence Malignant neoplasm of prostate HLD (hyperlipidemia) GERD (gastroesophageal reflux disease) Cervical radiculopathy Aortic stenosis Allergic rhinitis Surgical History History of tonsillectomy H/O heart surgery Family History Father Cancer Mother Cardiac pacemaker Diabetes Brother Hyperlipidemia Social History Smoking/Tobacco Use Status: Former Tobacco Use Quit Date: 05/10/22 Tobacco: How many years used: 62 Smoking risk assessment performed?: Yes Alcohol Intake: former Drug use: Never Substance use type: does not use Housing: house current occupation: retired What is your relationship status?: Panel score (0-1 are the most socially isolated patients): 1 What type of physical activity do you participate in: walking Do you feel safe at home: Yes Do you feel safe in your relationship?: Yes Meds Allergies and Home Medications Allergies Allergy/AdvReac Type Severity Reaction Status Date / Time aspirin AdvReac Mild GI Bleeding Verified 11/16/24 11:23 Home Medications ?Medication ?Instructions ?Recorded ?Confirmed ?Type tamsulosin 0.4 mg capsule 1 cap PO 1XD 05/15/22 11/16/24 History calcium citrate 200 mg PO DAILY 06/23/22 11/16/24 History carboxymethylcellulose sodium 0.5 3 drp ophthalmic (eye) TID PRN Eye 06/23/22 11/16/24 History % eye drops in a dropperette Irritation (Refresh Plus) multivitamin 1 tab PO DAILY 06/23/22 11/16/24 History sildenafil 100 mg tablet 100 mg PO PRN PRN 08/15/22 10/28/24 History fluticasone propionate 50 1 spray intranasal BID PRN PRN #0 08/17/22 10/28/24 Rx mcg/actuation nasal grams spray,suspension carvedilol 3.125 mg tablet 3.125 mg PO BID 10/06/23 11/16/24 History metformin 500 mg tablet 500 mg PO BID 10/06/23 11/16/24 History atorvastatin 80 mg tablet 80 mg PO DAILY 09/30/24 11/16/24 History apixaban 5 mg tablet (Eliquis) 5 mg PO BID #60 tabs 10/01/24 11/16/24 Rx melatonin 3 mg tablet 3 mg PO HS PRN #30 tabs 10/01/24 11/16/24 Rx polyethylene glycol 3350 17 gram 17 g PO DAILY PRN PRN Constipation 10/01/24 11/16/24 Rx oral powder packet #30 ea metoprolol tartrate 25 mg tablet 25 mg PO DAILY 11/16/24 11/16/24 History Exam Narrative Exam Narrative: Constitutional The patient is sitting in chair/ lying in bed comfortable and cooperative during the interview. The patient is well groomed without acute distress and has average body habitus/is obese/ is thin. HENMT: Head is atraumatic, normocephalic, no lymphadenopathy. Facial structures with normal appearance Eyes: Well aligned, intact ROM Neck: Normal ROM, no meningeal signs Neuro:alert and oriented to self, person, place time and situation. No neurological focal deficit, PERRLA Chest:Chest is symmetrical and normal appearance Resp: Normal respiratory pattern, speaks in full sentences, unlabored breathing, clear lung bilaterally Cardio: regular rhythm, right 2nd int. cost. murmur?, capillary refill<3 sec., bilateral radial and dorsalis pedis pulses are positive, palpable GI: Abdomen is not distended, soft and non tender, bowel sounds are present : Negative Costovertebral angle tenderness, no bladder distension Back/spine/Pelvis: No back tenderness, normal alignment Integumentary: No skin lesions or rash Extremities: strength 5/5 to bilateral lower and upper extremities Psych: RASS 0, congruent mood and normal affect. Results Labs 11/16/24 11:25 11/16/24 11:25 Labs: Laboratory Results - last 24 hr 11/16/24 11/16/24 11/16/24 11: 12:50 14:43 WBC 5.21 RBC 4.07 L Hgb 12.8 L Hct 38.8 L MCV 95 MCH 31.4 MCHC 33.0 RDW 13.5 Plt Count 148 MPV 11.3 H Immature Gran % 0.4 Neutrophils % 64.4 Lymphocytes % 23.2 Monocytes % 8.1 Eosinophils % 3.1 Basophils % 0.8 Nucleated RBC % 0.0 Absolute Neutrophils 3.36 Absolute Lymphocytes 1.21 Absolute Monocytes 0.42 Absolute Eosinophils 0.16 Absolute Basophils 0.04 Sodium 143 Potassium 4.1 Chloride 109 H Carbon Dioxide 28.2 Anion Gap 5.8 BUN 23 H Creatinine 0.9 Est GFR (CKD-EPI 2020) 85.27 Glucose 209 H Calcium 9.6 Total Bilirubin 0.71 AST 20 ALT 30 Alkaline Phosphatase 108 Troponin I 9 8 Cancelled NT-Pro-B Natriuret Pep 1333 H Total Protein 7.3 Albumin 3.9 Last Vital Signs Temp 36.9 C 11/16/24 11:12 Pulse 79 11/16/24 15:01 Resp 17 11/16/24 15:10 BP 100/27 L 11/16/24 15:01 Pulse Ox 96 11/16/24 15:10
[2024-11-16 17:24] LABS: Lab Add On Test DONE
[2024-11-16 17:30] LABS: Magnesium 1.8 mg/dL (1.8-2.4)
== END 2024-11-16 17:42 | disposition short-term general hospital (02) ==
PROVIDERS: Emergency Provider Emergency Medicine; PCP Family Medicine
DX: I20.0 Unstable angina (principal); I35.0 Nonrheumatic aortic (valve) stenosis; R07.9 Chest pain, unspecified
CPT/HCPCS: 36415; 80053; 93005; 93308; 99291; 71045; 83735; 83880; 84484; 85025; 93010

== ENCOUNTER 2024-12-29 11:03 | Outpatient (RCR) | payer MEDICARE, SELFPAY | END 2025-01-07 23:59 | disposition home or self-care (01) | LOC: CR 11:03 | PROVIDERS: PCP Family Medicine; Visit Provider Internal Medicine Cardiovascular Disease ==

== ENCOUNTER → 2025-02-03 12:56 | Outpatient (BNVA) | payer MEDICARE, SELFPAY | PROVIDERS: PCP Family Medicine; Visit Provider Internal Medicine Cardiovascular Disease | DX: I25.10 Atherosclerotic heart disease of native coronary artery without angina pectoris (principal); I48.0 Paroxysmal atrial fibrillation; Z95.2 Presence of prosthetic heart valve | CPT/HCPCS: 99214 ==

== ENCOUNTER 2025-02-07 09:10 | Outpatient (RCR) | payer MEDICARE, SELFPAY ==
--- NOTE | 2025-01-10 10:30 | RT.EKG_ITS ---
APPROVED REPORT Exam: Resting ECG Reason for Exam: Cardiac Rehab intake Patient Location: O HR:71 bpm ECG Measurements Heart Rate 71 AXIS AK [id number] P [id number] QRSd 130 QRS -53 QT 416 T 101 QTc 453 Conclusion Atrial fibrillation...V-rate 67- 74, irreg A-activity Ventricular bigeminy...bigeminy string>4 w/ V complexes LVH with IVCD, LAD and secondary repol abnrm...multi-criteria, wQRSd, abnr ST-T
== END 2025-02-07 23:59 | disposition home or self-care (01) ==
LOC: CR 09:10
PROVIDERS: PCP Family Medicine; Visit Provider Internal Medicine Cardiovascular Disease
DX: I25.10 Atherosclerotic heart disease of native coronary artery without angina pectoris (principal); Z51.89 Encounter for other specified aftercare
CPT/HCPCS: S9472

== ENCOUNTER 2025-04-21 07:30 | Outpatient (CLI) | payer MEDICARE, SELFPAY ==
--- NOTE | 2025-04-21 07:30 | RT.EKG_ITS ---
APPROVED REPORT Exam: Resting ECG Reason for Exam: cad Patient Location: O HR:97 bpm ECG Measurements Heart Rate 97 AXIS MT [id number] P [id number] QRSd 125 QRS -55 QT 395 T 103 QTc 502 Conclusion Atrial fibrillation...V-rate 80-119, irreg A-activity Ventricular premature complex...V complex w/ short R-R interval LVH with IVCD, LAD and secondary repol abnrm...multi-criteria, wQRSd, abnr ST-T
== END 2025-04-21 07:31 | disposition home or self-care (01) ==
LOC: DI.CARD 07:31
PROVIDERS: PCP Family Medicine; Visit Provider Internal Medicine Cardiovascular Disease
DX: I48.20 Chronic atrial fibrillation, unspecified (principal); I25.10 Atherosclerotic heart disease of native coronary artery without angina pectoris; I49.3 Ventricular premature depolarization
CPT/HCPCS: 93010

== ENCOUNTER → 2025-04-21 14:20 | Outpatient (BNVA) | payer MEDICARE, SELFPAY | PROVIDERS: PCP Family Medicine; Visit Provider Internal Medicine Cardiovascular Disease | DX: I25.10 Atherosclerotic heart disease of native coronary artery without angina pectoris (principal); Z95.2 Presence of prosthetic heart valve; I25.5 Ischemic cardiomyopathy; I48.20 Chronic atrial fibrillation, unspecified | CPT/HCPCS: 99213; 93005 ==

== ENCOUNTER → 2025-09-02 09:42 | Outpatient (BNVA) | payer MEDICARE, SELFPAY | PROVIDERS: PCP Family Medicine; Referring Provider Family Medicine; Visit Provider Internal Medicine Cardiovascular Disease | DX: I25.5 Ischemic cardiomyopathy (principal); I48.20 Chronic atrial fibrillation, unspecified; I25.10 Atherosclerotic heart disease of native coronary artery without angina pectoris; Z95.2 Presence of prosthetic heart valve; Z79.01 Long term (current) use of anticoagulants | CPT/HCPCS: 99214 ==